=== PATIENT | female | born 1975 | race Caucasian/White ===

== ENCOUNTER 2019-09-23 05:39 | Outpatient (CLI) | payer BC ==
[~2019-09-23] VITALS: Ht 165.1 cm; Wt 59.1 kg
[2019-09-23] MEDS ORDERED: ALPR0.5T PO (10:37)
[2019-09-23] MEDS ORDERED: SIMV10TA26 PO (10:37)
[2019-09-23] MEDS ORDERED: ZOLP10TA PO (10:37)
== END 2019-09-23 10:39 | disposition home or self-care (01) ==
LOC: PREOP 05:39
PROVIDERS: ATTEND Otolaryngology Otolaryngology/Facial Plastic Surgery
DX: Z01.818 Encounter for other preprocedural examination (principal)

== ENCOUNTER 2019-09-27 08:34 | Day surgery (SDC) | payer BC ==
[2019-09-27] VITALS (11 sets, daily range): BP systolic 97–127; BP diastolic 52–77
[~2019-09-27] VITALS: Ht 165.1 cm; Wt 59.1 kg
[~2019-09-27 08:34] MED LIST: ALPR0.5T PO; SIMV10TA26 PO; ZOLP10TA PO
[2019-09-27] MEDS: LACTATED RINGERS 1,000 ML IV PRN ×2 (09:00→12:16)
[2019-09-27 09:29] LABS: BASOPHILS % (AUTO) 0 % (0-10); EOSINOPHILS # (AUTO) 0.1 10^3/uL (0.0-0.3); EOSINOPHILS % (AUTO) 1 % (0-10); HEMATOCRIT 42 % (35-52); HEMOGLOBIN 14.1 G/DL (11.5-16.0); LYMPHOCYTES # (AUTO) 2.3 X 10^3 (1.0-4.0); LYMPHOCYTES % (AUTO) 21 % (12-44); MEAN CORPUSCULAR HEMOGLOBIN 33 PG (25-34); MEAN CORPUSCULAR HGB CONC 34 G/DL (32-36); MEAN CORPUSCULAR VOLUME 97 FL (80-99); MEAN PLATELET VOLUME 11.3 FL (7.4-10.4); MONOCYTES # (AUTO) 0.8 X 10^3 (0.0-1.0); MONOCYTES % (AUTO) 7 % (0-12); NEUTROPHILS # (AUTO) 7.4 X 10^3 (1.8-7.8); NEUTROPHILS % (AUTO) 70 % (42-75); PLATELET COUNT 206 10^3/uL (130-400); RED CELL DISTRIBUTION WIDTH 12.9 % (10.0-14.5); WHITE BLOOD COUNT 10.7 10^3/uL (4.3-11.0)
[2019-09-27] MEDS ORDERED: COCAINE HCL 4% 2 ML SYR ONE (09:34)
[2019-09-27] MEDS ORDERED: LIDOCAINE/EPI 1%-1:100,000 (XYLOCAINE) 20ML ONE (09:34)
[2019-09-27] MEDS ORDERED: PHENYLEPHRINE 0.5% NASAL SPR (NEO-SYNEPHRINE) REG ONE (09:34)
[2019-09-27] MEDS ORDERED: fentaNYL INJECTION 100 MCG/2 ML AMP ONE (09:36)
[2019-09-27] MEDS ORDERED: DEXAMETHASONE 10 MG/ML (DECADRON) 1 ML VIAL ONE (09:36)
[2019-09-27] MEDS ORDERED: LIDOCAINE PF 2% 5 ML (XYLOCAINE) VIAL ONE (09:36)
[2019-09-27] MEDS ORDERED: GLYCOPYRROLATE 0.2 MG/ML (ROBINUL) 2 ML VIAL ONE (09:36)
[2019-09-27] MEDS ORDERED: NEOSTIGMINE 3 MG/3 ML VIAL ONE (09:36)
[2019-09-27] MEDS ORDERED: ROCURONIUM 10 MG/ML 5 ML SYRINGE IV ONE (09:36)
[2019-09-27] MEDS ORDERED: proPOfol 200 MG/20 ML (DIPRIVAN) VIAL IV ONE (09:36)
[2019-09-27] MEDS ORDERED: SEVOFLURANE (ULTANE) 15 ML INHAL SOLN ONE (09:36)
[2019-09-27] MEDS ORDERED: ONDANSETRON 4 MG/2 ML (SDV) Z0FRAN ONE (09:36)
[2019-09-27] MEDS ORDERED: MIDAZOLAM 2 MG/2 ML (VERSED) VIAL ONE (09:36)
[2019-09-27 09:45] LABS: BUN/CREATININE RATIO 16; CALCIUM 8.8 MG/DL (8.5-10.1); CARBON DIOXIDE 22 MMOL/L (21-32); CHLORIDE 107 MMOL/L (98-107); GFR ESTIMATED > 60; GLUCOSE 95 MG/DL (70-105); POTASSIUM 4.1 MMOL/L (3.6-5.0); SODIUM 139 MMOL/L (135-145)
--- NOTE | 2019-09-27 10:39 | Progress Note-Pre Operative ---
Pre-Operative Progress Note H&P Reviewed The H&P was reviewed, patient examined and no changes noted. Date Seen by Provider: Sep 27, 2019 Time Seen by Provider: : Date H&P Reviewed: Sep 27, 2019 Time H&P Reviewed: : Pre-Operative Diagnosis: Deviated Nasal Septum, Bilat Hyper of Inf Turbs BRENNA HUMPHRIES MD Sep 27, 2019 10:39
[2019-09-27] MEDS ORDERED: D5 1/2 NS W/KCL 20 MEQ/L 1,000 ML IV SCH (11:39)
--- NOTE | 2019-09-27 11:39 | Progress Note-Post Operative ---
Post-Operative Progess Note Surgeon (s)/Patient Access Coordinator (s) Surgeon BRENNA HUMPHRIES MD Patient Access Coordinator n/a Pre-Operative Diagnosis Deviated Nasal Septum, Bilat Hyper of Inf Turbs Post-Operative Diagnosis same Post-Op Procedure Note Date of Procedure: Sep 27, 2019 Name of Procedure Performed: Nasal Septoplasty, Bialt Partial REd of Inf Turbs Description & Findings Description and Findings: n/a Anesthesia Type get Estimated Blood Loss minimal Packing none. Specimen(s) collected/removed nasal septum BRENNA HUMPHRIES MD Sep 27, 2019 11:39
[2019-09-27] MEDS ORDERED: ACETAMINOPHEN 325 MG TABLET PO PRN (11:45)
[2019-09-27] MEDS ORDERED: oxyCODONE/APAP 5/325MG (PERCOCET 5) TABLET PO PRN (11:45)
[2019-09-27] MEDS ORDERED: PROMETHAZINE INJ 25 MG/ML (PHENERGAN) AMP IVP PRN (11:45)
[2019-09-27] MEDS ORDERED: RT-ALBUTEROL SULF 2.5 MG/3 ML PRE-MIX VIAL ONE (11:54)
[2019-09-27] MEDS ORDERED: RT-ALBUTEROL SULF 2.5 MG/3 ML PRE-MIX VIAL INH ONE (12:00)
[2019-09-27] MEDS ORDERED: morphine INJ 10 MG/ML 1ML (SYR OR VIAL) IVP ONE (12:00)
[2019-09-27] MEDS ORDERED: morphine INJ 10 MG/ML 1ML (SYR OR VIAL) ONE (12:00)
[2019-09-27] MEDS ORDERED: ONDANSETRON 4 MG/2 ML (SDV) Z0FRAN IVP PRN (12:00)
[2019-09-27] MEDS ORDERED: HYDROmorphone 2 MG/ML VIAL (DILAUDID) IV ONE (12:00)
--- NOTE | 2019-09-27 13:23 | Anesthesia-General Post-Op ---
General Patient Condition Mental Status/LOC: Same as Preop Cardiovascular: Satisfactory Nausea/Vomiting: Absent Respiratory: Satisfactory Pain: Controlled Complications: Absent Post Op Complications Complications None Follow Up Care/Instructions Patient Instructions None needed. Anesthesia/Patient Condition Patient Condition Patient is doing well, stable vital signs, no apparent adverse anesthesia problems. She is C/O a sore throat, which I explained to her was not uncommon after the procedure secondary to intubation. She understood. We will be available if needed. CLEMENT GRIFFIN DO Sep 27, 2019 13:23
[2019-09-27] MEDS ORDERED: oxyCODONE/APAP 5/325MG (PERCOCET 5) TABLET ONE ×2 (13:30→13:33)
[2019-09-27] MEDS ORDERED: OXYC1TAB87 PO (13:31)
[2019-09-27] MEDS ORDERED: AMOX500T2 PO (13:31)
--- OUTSIDE RECORDS SUMMARY | 2019-09-29 01:06 | XMS REPORT ---
Author Author Bethany Mann Organization [facility] Address [address] [place], [place] [id number] Care Team Providers Care Rail Switchman Name Role Phone Nolberto Mann PCP Allergies and Adverse Reactions Name Reaction Notes codeine sulfate Plan of Treatment Not available. Medications Active Name Start Date Estimated Completion Date SIG Co mments Xanax 0.5 mg oral tablet take 1 tablet by oral route daily as needed Ambien 5 mg oral tablet take 1 t ablet (5 mg) by oral route once daily at bedtime simvastatin 20 mg oral tablet ta ke 1 tablet (20 mg) by oral route once daily in the evening Claritin-D 24 Hour 10-240 mg oral tablet extended release 24 hr 10/13/2018 take 1 tablet by oral route once daily Name Start Date Expiration Date SIG Comments amoxicillin-pot clavulanate 875-125 mg oral tablet 09/08/2018 09/18/2018 take 1 tablet by oral route every 12 hours for 10 days amoxicillin 875 mg oral tablet 10/13/2018 10/23/2018 t cornelio 1 tablet (875 mg) by oral route every 12 hours for 10 days Discontinued Name Start Date Discontinued Date SIG Comments Medrol (Karl) 4 mg oral tablets,dose pack 09/08/2018 10/13/2018 take as directed Problem List Not available. Vital Signs Date Time BP-Sys(mm[Hg] BP-Sindy(mm[Hg]) HR(bpm) RR(rpm) Temp WT HT HC BMI BSA BMI Percentile O2 Sat(%) 10/13/2018 11:06:00 AM 118 mmHg 86 mmHg 85 bpm 18 rpm 97.3 F 147.125 lbs 65 in 24.4826 kg/m 1.7494 m 97 % 09/08/2018 10:45:00 AM 120 mmHg 64 mmHg 70 bpm 18 rpm 99.1 F 145 lbs 65 in 24.13 kg/m2 1.74 m2 98 % Social History Name Description Comments Tobacco Current every day smoker History of Procedures Not available. Results Summary Not available. History Of Immunizations Not available. History of Past Illness Name Date of Onset Comments Migraine Hyperlipemia Sinusitis, Acute Sep 08 2018 10:51AM Sinusitis, Acute Oct 13 2018 11:08AM Payers Insurance Name Company Name Plan Name Plan Number Policy Number [employer] Group Number Start Date [facility] [id number] N/ A History of Encounters Visit Date Visit Type Provider 10/13/2018 Office visit Nolberto Mann NP 09/08/2018 Office visit Nolberto Mann REACTOR OPERATOR
--- OUTSIDE RECORDS SUMMARY | 2019-09-29 01:06 | XMS REPORT ---
Author Author [facility] Medic al StaffJAIME Organization [facility] Address [address] [place], [place] [address] Phone [phone] Care Team Providers Care Svp Group Director Name Role Phone CUCA MCMILLAN MD PP [phone] Summary purpose TRANSITION OF CARE AUTO GENERATION Chief Complaint and Reason for Visit Admit Diagnosis 1 PHYSICAL THERAPY NEC Problem list No authorized problems tracked for continuity of care are available for this vis it. Encounters No authorized problems tracked for encounter diagnoses are available for this vi sit. Medications No medications recorded for this patient visit Allergies, adverse reactions, alerts Allergen Category Ingredient Status Reaction Severity Onset Codeine Drug Allergy Codeine Confirmed or Verified Immunizations No immunizations recorded for this patient visit Relevant diagnostic tests and/or laboratory data No authorized results are available for this patient visit History of procedures Procedure Code Code Type Description Date Performed Performing Physician 58040 CPT-4 PT EVALUATION 11-03-2014 GRACIE REYES 83489 CPT-4 ULTRASOUND THERAPY 11-03-2014 GRACIE NORRIS 16831 CPT-4 THERAPEUTIC EXERCISES 11-07-2014 GRACIE REYES 26285 CPT-4 ULTRASOUND THERAPY 11-07-2014 GRACIE NORRIS Functional status No functional or cognitive status observations are available for this visit. Vital signs No authorized vital signs are available for this visit. Social history No Social History or smoking status observations were recorded for this visit. ( Unknown if ever smoked.) Treatment Plan No treatment plan text is available for this visit. Hospital discharge instructions No discharge instruction text is available for this visit.
--- OUTSIDE RECORDS SUMMARY | 2019-09-29 01:06 | XMS REPORT ---
Author Author [facility] Medic al Staff, JAIME Gonzales Organization [facility] Address [address] [place], [place] [address] Phone [phone] Care Team Providers Care Housekeeping Room Attendant Name Role Phone CUCA MCMILLAN MD PP [phone] Summary purpose TRANSITION OF CARE AUTO GENERATION [...] for this patient visit History of procedures No procedures recorded for this patient visit. Functional status No functional or cognitive status [...]
--- OUTSIDE RECORDS SUMMARY | 2019-09-29 01:06 | XMS REPORT ---
Author Author Bethany Mann Organization [facility] Address [address] [place], [place] [address] Care Team Providers Care Laundry Housekeeping Aide Name Role Phone Nolberto Mann PCP Allergies [...] oral route once daily in the evening amoxicillin-pot clavulanate 875-125 mg oral tablet 09/08/2018 09/18/2018 take 1 tablet by oral route every 12 hours for 10 days Medrol (Karl) 4 mg oral tablets,dose pack 09/08/2018 take as directed Problem List Not available. Vital Signs Date Time BP-Sys(mm[Hg] BP-Sindy(mm[Hg]) HR(bpm) RR(rpm) Temp WT HT HC BMI BSA BMI Percentile O2 Sat(%) 09/08/2018 10:45:00 AM 120 mmHg 64 mmHg 70 bpm 18 rpm 99.1 F 145 lbs 65 in 24.129 kg/m 1.7368 m 98 % Social History Name Description Comments Tobacco Current every day smoker History of Procedures Not available. Results Summary Not available. History Of Immunizations Not available. History of Past Illness Name Date of Onset Comments Migraine Hyperlipemia Sinusitis, Acute Sep 08 2018 10:51AM Payers Insurance Name Company Name Plan Name Plan Number Policy Number [employer] Group Number Start Date [facility] [id number] N/ A History of Encounters Visit Date Visit Type Provider 09/08/2018 Office visit Nolberto Mann NP
--- OUTSIDE RECORDS SUMMARY | 2019-09-29 01:06 | XMS REPORT ---
Author Author Bethany Mann Organization [facility] Address [address] [place], [place] [id number] Care Team Providers Care Superintendent Greens Name Role Phone Nolberto Mann PCP Allergies [...] 1 tablet by oral route once daily amoxicillin 875 mg oral tablet 10/13/2018 10/23/2018 t cornelio 1 tablet (875 mg) by oral route every 12 hours for 10 days Name Start Date Expiration Date SIG Comments [...] Number [employer] [id number]/ A History of Encounters Visit Date Visit Type Provider 10/13/2018 Office visit Nolberto Mann NP 09/08/2018 Office visit Nolberto Mann NP
--- OUTSIDE RECORDS SUMMARY | 2019-09-29 01:06 | XMS REPORT ---
Author Author [facility] Medic al StaffJAIME Organization [facility] Address [address] [place], [place] [address] Phone [phone] Care Team Providers Care Rib Builder Name Role Phone CUCA MCMILLAN MD PP [phone] Summary purpose TRANSITION OF CARE AUTO GENERATION [...] Code Type Description Date Performed Performing Physician 13035 CPT-4 PT EVALUATION 11-03-2014 GRACIE REYES 03995 CPT-4 ULTRASOUND THERAPY 11-03-2014 GRACIE NORRIS 62540 CPT-4 THERAPEUTIC EXERCISES 11-07-2014 GRACIE REYES 19077 CPT-4 ULTRASOUND THERAPY 11-07-2014 GRACIE NORRIS Functional [...]
--- OUTSIDE RECORDS SUMMARY | 2019-09-29 01:06 | XMS REPORT ---
Author Author [facility] Medic al StaffJAIME Organization [facility] Address [address] [place], [place] [address] Phone [phone] Care Team Providers Care Paint Roller Covermaker Name Role Phone CUCA MCMILLAN MD PP [phone] Summary purpose TRANSITION OF CARE AUTO GENERATION Chief Complaint and Reason for Visit Admit Diagnosis 1 JOINT PAIN-L/LEG Problem list No authorized problems tracked for continuity of care are available for this vis it. Encounters No authorized problems tracked for encounter diagnoses are available for this vi sit. Medications No home medications recorded for this patient visit Allergies, adverse reactions, alerts Allergen Category Ingredient Status Reaction Severity Onset Codeine Drug Allergy Codeine Confirmed or Verified Immunizations No immunizations recorded for this patient visit Relevant diagnostic tests and/or laboratory data RESULTS Radiology Results [id number] MRI LOW EXT JT W/O CON PACs Image DATE OF EXAM: 2014 MRI 0093-MRI LOWER EXT JOINT W/O CONTRAST- RIGHT: RADIOLOGY REPORT DATE OF SERVICE:10/20/14 HISTORY:Right knee pain, catching, p opping, locking and swelling. MAGNETIC RESONANCE IMAGING OF THE RIGHT KNEE 1105 HOURS Imaging of the knee was performed in the sagittal, oblique sagittal, axial and coronal planes. No contrast wa s administered. The anterior and posterior cruciate liga ments are normal and intact. There is no ligament tear. The menisci a re intact. The medial and lateral compartments show no significant chondral thinning or irregularity. There is no bony fracture or edema. The patellofemoral facets and patellar retinacula are ismael l. There is no significant joint effusion. The posteromedial and posterol ateral corner insertions are normal. The quadriceps and patellar tend ons are normal. IMPRESSION:Normal magnetic resonance imaging of the right knee. Thor Zelaya MD MWD/pb10/20/2014 11:52:00 / 12/2014 12:32:48 cc:Dr. Gracie Watson This document has been electronically Signed by: On: DATE OF EXAM: 2014 MRI 0093-MRI LOWER EXT JOINT W/O CONTRAST- RIGHT: RADIOLOGY REPORT DATE OF SERVICE:10/20/14 HISTORY:Right knee pain, catching, p opping, locking and swelling. MAGNETIC RESONANCE IMAGING OF THE RIGHT KNEE 1105 HOURS Imaging of the knee was performed in the sagittal, oblique sagittal, axial and coronal planes. No contrast wa s administered. The anterior and posterior cruciate liga ments are normal and intact. There is no ligament tear. The menisci a re intact. The medial and lateral compartments show no significant chondral thinning or irregularity. There is no bony fracture or edema. The patellofemoral facets and patellar retinacula are ismael l. There is no significant joint effusion. The posteromedial and posterol ateral corner insertions are normal. The quadriceps and patellar tend ons are normal. IMPRESSION:Normal magnetic resonance imaging of the right knee. Thor Zelaya MD MWD/pb/12/2014 11:52:00 / 12/2014 12:32:48 cc:Dr. Gracie Watson This document has been electronically Signed by: THOR ZELAYA On: [id number] Result Amended on 2014-10-20 at 14:25:25 . Previous status was RI. History of procedures Procedure Code Code Type Description Date Performed Performing Physician 77292 CPT-4 MRI JNT OF LWR EXTRE W/O DYE 10-20-2014 GRACIE WATSON Functional status No functional or cognitive status [...]
--- OUTSIDE RECORDS SUMMARY | 2019-09-29 01:07 | XMS REPORT | Clinical Summary ---
Author Author Admin, Bethany Gonzales Organization [facility] Address Unknown Phone Unavailable Allergies, Adverse Reactions, Alerts Allergy Name Reaction Description Start Date Severity Status Pr ovider CODEINE in other meds is okay to take, not by its self Mild Active Thomas Marks DO Conditions or Problems Problem Name Problem Code Onset Date Status Entry Date Provider Comment Standard Description Annotate FH BREAST CANCER V16.3 Resolved Checo Conklin MD Family history of malignant neoplasm of breast FH DIABETES V18.0 Resolved Checo Conklin MD Family history of diabetes mellitus CONCUSSION 850.9 Resolved Checo Conklin MD Concussion, unspecified UTI 599.0 Resolved Checo Conklin MD Urinary tract infection, site not specified UTI 599.0 Resolved Checo Conklin MD Urinary tract infection, site not specified Anxiety 300.00 Active Checo Conklin MD Anxiety state, unspecified A D D 314.00 Inactive Checo Conklin MD Attention deficit disorder of childhood without mention of hyperactivity Attention deficit disorder 314.00 Active 1 Checo Conklin MD Attention deficit disorder of childhood without mention of hyperactivity ABDOMINAL PAIN RIGHT LOWER QUADRANT 789.03 Resolved Checo Conklin MD Abdominal pain, right lower quadrant HEADACHE, TENSION 307.81 Resolved Checo Conklin MD Tension headache PHARYNGITIS 462 Resolved Checo Conklin MD Acute pharyngitis TOBACCO ABUSE 305.1 Inactive Paul Hamlin MD Tobacco use disorder Tobacco user 305.1 Active Checo Conklin MD Tobacco use disorder Health screening V70.0 Active Checo Joshua Routine general medical examination at a health care facility OTITIS MEDIA-RIGHT 382.9 Resolved Checo richey MD Unspecified otitis media Onychomycosis, toenails 110.1 Resolved Joe Conklin MD Dermatophytosis of nail Hypoglycemia, unspecified 251.2 Resolved Checo Conklin MD Hypoglycemia, unspecified Insomnia 780.52 Resolved Checo Conklin MD Insomnia, unspecified Hyperlipidemia 272.4 Active Checo Conklin MD Other and unspecified hyperlipidemia Migraine with aura 346.00 Active Checo Conklin MD Migraine with aura, without mention of intractable migraine, without mention of status migrainosus Breast mass, right 611.72 Resolved Checo richey MD Lump or mass in breast Breast mass, right 611.72 Resolved Checo richey MD Lump or mass in breast Mastalgia 611.71 Resolved Checo Conklin MD Mastodynia Sinusitis 461.9 Resolved Checo Conklin MD Acute sinusitis, unspecified Insect bite 919.4 Resolved Checo Conklin MD Insect bite, nonvenomous, of other, multiple, and unspecified sites, without mention of infection Carbuncle/furuncle NOS 680.9 Resolved Lenora Conklin MD Carbuncle and furuncle of unspecified site BRONCHITIS, ACUTE 466.0 Resolved Checo Conklin MD Acute bronchitis Abdominal pain 789.00 Resolved Checo Conklin MD Abdominal pain, unspecified site Knee pain, right 719.46 Resolved Checo Conklin MD Pain in joint involving lower leg Vertigo 780.4 Resolved Checo Conklin MD Dizziness and giddiness Constipation 564.00 Active Checo Conklin MD Constipation, unspecified Abscess, skin 682.9 Resolved Checo Conklin MD Cellulitis and abscess of unspecified sites Insomnia, chronic 307.42 Active Checo Conklin MD Persistent disorder of initiating or maintaining sleep Bacterial vaginosis 616.10 Resolved Checo martinez MD Vaginitis and vulvovaginitis, unspecified Pharyngitis 462 Resolved Checo Conklin MD Acute pharyngitis Cough 786.2 Resolved Checo Conklin MD Cough Pedal edema 782.3 Resolved Checo Conklin MD Edema 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 Checo Conklin MD Neoplasm of uncertain behavior of skin Abdominal pain, generalized 789.07 Resolved Checo Conklin MD Abdominal pain, generalized Urinary frequency 788.41 Resolved Checo Conklin MD Urinary frequency Sinusitis, acute 461.9 Resolved Checo Conklin MD Acute sinusitis, unspecified Repeated falls 781.99 Resolved Checo Conklin MD Other symptoms involving nervous and musculoskeletal systems Abdominal pain, generalized 789.07 Resolved Checo Conklin MD Abdominal pain, generalized Nausea 787.02 Resolved Checo Conklin MD Nausea alone Helicobacter pylori gastritis 535.40 Active 07/28 Checo Conklin MD Other specified gastritis, without menti on of hemorrhage Arm pain, right 729.5 Active Dangelo Joshua Pain in limb Body Mass Index 25.0-25.9 Adult Resolved 2017 Paul Hamlin MD Body Mass Index 25.0-25.9, adult Generalized edema 782.3 Active Checo Conklin MD Edema Overweight 278.00 Active Paul Hamlin MD Obesity, unspecified Body Mass Index 27.0-27.9 Adult Resolved 2018 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 Body Mass Index 27.0-27.9, adult Body Mass Index 26.0-26.9 Adult Refinement 2017 Thomas Marks DO Body Mass Index 26.0-26.9, adult BMI 25-25.9 Active 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 APRN-C Body Mass Index 26.0-26.9, adult Wellness examination, routine medical V70.0 Active 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 APRN-C Routine general medical examination at a health care facility Hypertension 401.9 Active 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 APRN-C Unspecified essential hypertension Screening for cardiovascular condition V81.2 Active 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 APRN-C Screening for other and unspecified card iovascular conditions Medication refill V68.1 Active 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 APRN- C Issue of repeat prescriptions Insomnia, chronic 780.52 Active 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 APRN- C Insomnia, unspecified Depression / anxiety 300.4 Active Radha WILCOX RN-C Dysthymic disorder BREAST CANCER ICD-V16.3 Inactive Checo Joshua FH DIABETES ICD-V18.0 Inactive Checo Conklin MD 201 08/27/26 CONCUSSION ICD-850.9 Inactive Checo Joshua UTI ICD-599.0 Inactive Checo Conklin MD 2013 ABDOMINAL PAIN RIGHT LOWER QUADRANT ICD-789.03 Inactive Checo Conklin MD HEADACHE, TENSION ICD-307.81 Inactive Checo Conklin MD PHARYNGITIS ICD-462 Inactive Checo Conklin MD OTITIS MEDIA-RIGHT ICD-382.9 Inactive Checo Conklin MD Onychomycosis, toenails ICD-110.1 Inactive Aracelis Conklin MD Hypoglycemia, unspecified ICD-251.2 Inactive Checo Conklin MD Insomnia ICD-780.52 Inactive Checo Joshua Breast mass, right ICD-611.72 Inactive Checo Conklin MD Mastalgia ICD-611.71 Inactive Checo Joshua Sinusitis ICD-461.9 Inactive Checo Conklin MD Insect bite ICD-919.4 Inactive Checo Conklin MD Carbuncle/furuncle NOS ICD-680.9 Inactive Hilaria Conklin MD BRONCHITIS, ACUTE ICD-466.0 Inactive Checo gallagher MD Abdominal pain ICD-789.00 Inactive Checo ngo MD Knee pain, right ICD-719.46 Inactive Checo gallagher MD Vertigo ICD-780.4 Inactive Checo Conklin MD 2014 Abscess, skin ICD-682.9 Inactive Checo richey MD Bacterial vaginosis ICD-616.10 Inactive Lenora Conklin MD Pharyngitis ICD-462 Inactive Checo Conklin MD Cough ICD-786.2 Inactive Checo Conklin MD 2016 Pedal edema ICD-782.3 Inactive Checo Conklin MD 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 Checo Conklin MD Abdominal pain, generalized ICD-789.07 Inactive Checo Conklin MD Urinary frequency ICD-788.41 Inactive Checo Conklin MD Sinusitis, acute ICD-461.9 Inactive Checo Ortiz MD Repeated falls ICD-781.99 Inactive Checo ngo MD Abdominal pain, generalized ICD-789.07 Inactive Checo Conklin MD Nausea ICD-787.02 Inactive Checo Conklin MD 201 02/15/12 Body Mass Index 25.0-25.9 Adult Robbin Hamlin MD Body Mass Index 27.0-27.9 Adult Jeremias Marks MA Medication List Medication Instructions Start Date Stop Date Generic Name NDC Status Provider Patient Instruction CELEXA 20 MG ORAL TABLET take half a tab for 5 days t hen whole tab daily, may take in evening, for depression/anxiety CITALOPR AM HYDROBROMIDE 40428351070 Active 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 APRN-C Active PROZAC 10 MG ORAL CAPSULE 1 PO Daily FLUOXETINE HCL 54158107519 No Longer Active 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 APRN-C Active VYVANSE 30 MG ORAL CAPSULE 1 PO daily LISDEXAMF ETAMINE DIMESYLATE 19917399934 Active 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 Active XANAX 0.5 MG ORAL TABLET 1 tablet PO BID; PRN A LPRAZOLAM 37204187266 Active Radhasantos Whitaker 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 Active SIMVASTATIN 20 MG ORAL TABLET 1 tablet PO daily SI MVASTATIN 06167342548 Active Radhasantos Whitaker 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 Active IBUPROFEN 800 MG ORAL TABLET 1 tablet PO q8hr PRN IBUPROFEN 29509042565 Active Radhasantos Whitaker 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 Active AMBIEN 5 MG ORAL TABLET 1 tablet PO once daily; PRN ZOLPIDEM TARTRATE 98594877754 Active 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 Active ALBUTEROL SULFATE HFA 108 (90 BASE) MCG/ACT INHALATION AEROSOL SOLUTION 2 puffs, INH, q4hr PRN ALBUTEROL SULFATE 97250549905 Active Radha Sherman A PRN-C Active AMBIEN 5 MG ORAL TABLET 1 po qHS PRN Insomnia ZOLPIDEM TARTRATE 37068038039 No Longer Active 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 APRN-C Active XANAX 0.5 MG ORAL TABLET 1 po BID PRN anxiety A LPRAZOLAM 02664373691 No Longer Active 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 Active PAROXETINE HCL 40 MG ORAL TABLET 1 po qd PAR OXETINE HCL 91015404198 No Longer Active 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 Active FOCALIN XR 10 MG ORAL CAPSULE EXTENDED RELEASE 24 HOUR 1 po q a. m. DEXMETHYLPHENIDATE HCL 92273785804 No Longer Active Radha Low 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 Active SIMVASTATIN 20 MG ORAL TABLET 1 po qd SIMVAS TATIN 84022523736 No Longer Active 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 Active FUROSEMIDE 20 MG ORAL TABLET 1 daily for swelling 2018 FUROSEMIDE 84309450339 No Longer Active 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 Active KLOR-CON 10 10 MEQ ORAL TABLET EXTENDED RELEASE 1 daily with furosemide POTASSIUM CHLORIDE 19193148027 No Longer Active 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 Active HYDROCHLOROTHIAZIDE 12.5 MG ORAL CAPSULE 1 po qd PRN Edema 01/10 HYDROCHLOROTHIAZIDE 03759006598 No Longer Active Paul Hamlin MD Active IBUPROFEN 800 MG ORAL TABLET 1 tab every 8 hours as needed for p ain IBUPROFEN 08144424769 No Longer Active Paul Hamlin MD Active MIRALAX ORAL POWDER 8.5 to 17g po qd PRN Constipation POLYETHYLENE GLYCOL 3350 06029851482 No Longer Active Checo Conklin MD Active PROTONIX 40 MG ORAL TABLET DELAYED RELEASE 1 pill by m [facility] daily, for acid reflux PANTOPRAZOLE SODIUM 81705787267 No Longer Activ e Corry Méndez LPN Active FLAGYL 500 MG ORAL TABLET 1 tablet by mouth bid 08/29 METRONIDAZOLE 55604957128 No Longer Active Corry Méndez LPN Active CLARITHROMYCIN 500 MG ORAL TABLET 1 tab po BID x 14 days CLARITHROMYCIN 22804434785 No Longer Active Corry Méndez LPN Active AMOXICILLIN 500 MG ORAL CAPSULE 2 po BID x 14 days for H. Pyl[facility] AMOXICILLIN 11072243446 No Longer Active Corry Méndez LPN Active FLUTICASONE PROPIONATE 50 MCG/ACT NASAL SUSPENSION 2 s prays/nostril qd PRN Congestion/Allergies FLUTICASONE PROPIONATE 4875574073 9 No Longer Active Checo Conklin MD Active AMOXICILLIN 500 MG ORAL CAPSULE 2 po BID x 10 days 201 01/15/27 AMOXICILLIN 26710814529 No Longer Active Checo Conklin MD Activ e CLARITIN 10 MG ORAL TABLET 1 tablet by mouth daily as needed for allergies LORATADINE 46715919505 No Longer Active Checo Ortiz MD Active BACTRIM DS 800-160 MG ORAL TABLET 1 tab by mouth twice daily 201 12/19/26 TRIMETHOPRIM-SULFAMETHOXAZOLE 79413013026 No Longer Active Ragini Carrillo MD Active DIFLUCAN 150 MG ORAL TABLET 1 tablet by mouth qod 2015 FLUCONAZOLE 28411796657 No Longer Active Efren Medel DRY CLEANER HELPER Act mike AZITHROMYCIN 250 MG ORAL TABLET 2 po qd x 1 day, then 1 po q d x 4 days AZITHROMYCIN 59877726709 No Longer Active Efren flores DRY CLEANER HELPER Active FLAGYL 500 MG ORAL TABLET 1 tablet by mouth bid 04/13 METRONIDAZOLE 79910273260 No Longer Active Checo Conklin MD Acti ve MAGNESIUM CITRATE 1.745 GM/30ML ORAL SOLUTION 150ml po BID P RN Constipation MAGNESIUM CITRATE 71874109333 No Longer Active Checo Conklin MD Active BACTROBAN 2 % EXTERNAL CREAM Apply to affected area BID for up to 10 days MUPIROCIN CALCIUM 70181274739 No Longer Active Checo Conklin MD Active HYDROCODONE-ACETAMINOPHEN 5-325 MG ORAL TABLET 1 tab b y mouth every 6 hours as needed HYDROCODONE-ACETAMINOPHEN 91441748975 No Longer Active Checo Conklin MD Active IBUPROFEN 800 MG ORAL TABLET 1 tab every 8 hours with food 03/20 IBUPROFEN 37088699600 No Longer Active Checo Conklin MD Active DIFLUCAN 150 MG ORAL TABLET 1 tablet by mouth if neede d, hold until symptoms start FLUCONAZOLE 50706376700 No Longer Active Checo Conklin MD Active BACTRIM DS 800-160 MG ORAL TABLET 1 tab by mouth twice daily 201 11/23/03 TRIMETHOPRIM-SULFAMETHOXAZOLE 75276136044 No Longer Active Bonnie Méndez LPN Active HYDROCODONE-ACETAMINOPHEN 5-325 MG ORAL TABLET 0.5 to 1 tab by mouth every 6 hours as needed HYDROCODONE-ACETAMINOPHEN 23143309876 No Longer Active Checo Conklin MD Active ONDANSETRON 8 MG ORAL TABLET DISINTEGRATING place one tablet on tongue and allow to dissolve every 6 hours as needed for vomitting ONDANSETRON 64886175284 No Longer Active Checo Conklin MD Activ e COMPRO 25 MG RECTAL SUPPOSITORY insert or apply one garza ppository rectally as directed every 12 hours as needed for nausea PROCHLORPERAZINE 10008072831 No Longer Active Checo Conklin MD A ctive SUMATRIPTAN SUCCINATE 100 MG ORAL TABLET Take one PRN for migran e SUMATRIPTAN SUCCINATE 63269220087 No Longer Active Checo Conklin MD Active TRAVEL SICKNESS 25 MG ORAL TABLET CHEWABLE chew and sw allow one tablet every 6 hours as needed MECLIZINE HCL 42008363275 No Longer A ctive Checo Conklin MD Active BUPROPION HCL ER (SR) 100 MG ORAL TABLET EXTENDED RELE ASE 12 HOUR take one tablet by mouth one time daily for one week then take 1 two times daily BUPROPION HCL 97715859637 No Longer Active Checo gallagher MD Active TERBINAFINE HCL 250 MG ORAL TABLET take one table PO one time da moises TERBINAFINE HCL 62381016507 No Longer Active Checo Conklin MD Active METOCLOPRAMIDE HCL 10 MG ORAL TABLET take one PO tid PRN nausea METOCLOPRAMIDE HCL 08400871129 No Longer Active Checo Conklin MD Active DICLOFENAC SODIUM 75 MG ORAL TABLET DELAYED RELEASE 1 tablet by mouth twice daily PRN Knee pain DICLOFENAC SODIUM 67977710545 No Longer Active Checo Conklin MD Active LAMISIL 250 MG ORAL TABLET 1 po qd TERBINAFI NE HCL 63697195697 No Longer Active Checo Conklin MD Active REGLAN 10 MG ORAL TABLET 1 po TID PRN Nausea 3 METOCLOPRAMIDE HCL 07480664885 No Longer Active Checo Conklin MD Active CELEXA 20 MG ORAL TABLET 1 tablet by mouth daily 09/26 CITALOPRAM HYDROBROMIDE 12124341813 No Longer Active Checo Conklin MD Active AZITHROMYCIN 250 MG ORAL TABLET 2 po qd x 1 day, then 1 po q d x 4 days AZITHROMYCIN 93474483896 No Longer Active Checo Ortiz MD Active HYDROCODONE-ACETAMINOPHEN 5-325 MG ORAL TABLET 1 po q 6hr PRN Pa in HYDROCODONE-ACETAMINOPHEN 70756025576 No Longer Active Lenora Conklin MD Active PHENAZOPYRIDINE HCL 200 MG ORAL TABLET take 1 tab po TID for bladder pain PHENAZOPYRIDINE HCL 03654013028 No Longer Active Joe Conklin MD Active CIPRO 500 MG ORAL TABLET 1 tablet by mouth twice daily CIPROFLOXACIN HCL 17666932705 No Longer Active Dangelo Rangel MD Active HYDROCODONE-ACETAMINOPHEN 5-325 MG ORAL TABLET 1/2 to 1 po q 4 hours prn cough HYDROCODONE-ACETAMINOPHEN 24731504255 No Longer Activ e Dangelo Rangel MD Active BACTRIM DS 800-160 MG ORAL TABLET 1 po BID x 7 days 29/04/10 SULFAMETHOXAZOLE-TRIMETHOPRIM 43359292378 No Longer Active Checo Conklin MD Active PREDNISONE 20 MG ORAL TABLET 2 tabs daily for 3 days, 1 tab daily for 3 days, 1/2 tab daily for 2 days PREDNISONE 02551597279 No Longer Active Checo Conklin MD Active TRIAMCINOLONE ACETONIDE 0.1 % EXTERNAL OINTMENT Apply to affected areas TID for up to 2 weeks TRIAMCINOLONE ACETONIDE 46228185403 No Longer Active Checo Conklin MD Active CEFDINIR 300 MG ORAL CAPSULE by mouth twice a day 2013 CEFDINIR 27563981155 No Longer Active Dangelo Rangel MD Acti ve BUPROPION HCL ER (SMOKING DET) 150 MG ORAL TABLET EXTE NDED RELEASE 12 HOUR 1 a day for 1 week then 1 twice a day BUPROPION HCL (SMOKING DETER) 74264588616 No Longer Active Checo Conklin MD Active CHANTIX STARTING MONTH KARTHIK 0.5 MG X 11 & 1 MG X 42 ORA L TABLET 0.5mg daily for 3 days, then 0.5mg BID for 4 days, then 1mg BID VARENICLINE TARTRATE 99076134194 No Longer Active Checo Conkiln MD Activ e CONCERTA 18 MG ORAL TABLET EXTENDED RELEASE 1 po q a.m. METHYLPHENIDATE HCL 13040055887 No Longer Active Checo Conklin MD Active TRAZODONE HCL 100 MG ORAL TABLET 0.5 to 1 po qHS PRN Insomnia 20 30/07/08 TRAZODONE HCL 97490240403 No Longer Active Checo Conklin MD Active FIORICET 325-50-40 MG TAB 1 tablet by mouth four times daily as needed [id number] 58343395696 No Longer Active Checo Conklin MD Active PHENERGAN CREAM* 25mg applied to wrist q6hr PRN Nausea PHENERGAN CREAM* No Longer Active Checo Conklin MD A ctive FLONASE 50 MCG/ACT NASAL SUSPENSION 1 spray each nostril am and hs FLUTICASONE PROPIONATE 95286963878 No Longer Active Checo Conklin MD Active ANTIPYRINE-BENZOCAINE 5.4-1.4 % OTIC SOLUTION 1-2 drops in affec yohannes ear BENZOCAINE-ANTIPYRINE 32589282307 No Longer Active Checo Conklin MD Active CEFDINIR 300 MG ORAL CAPSULE 1 po bid CEFDINIR 24155722240 No Longer Active Checo Conklin MD Active PREDNISONE 20 MG ORAL TABLET 2 tabs daily for 3 days, 1 tab daily for 3 days, 1/2 tab daily for 2 days PREDNISONE 43793133810 No Longer Active Checo Conklin MD Active AZITHROMYCIN 250 MG ORAL TABLET 2 po qd x 1 day, then 1 po q d x 4 days AZITHROMYCIN 48815418919 No Longer Active Checo Ortiz MD Active PREDNISONE 20 MG ORAL TABLET 2 tabs daily for 3 days, 1 tab daily for 3 days, 1/2 tab daily for 2 days PREDNISONE 58486869891 No Longer Active Checo Conklin MD Active ZITHROMAX Z-KARTHIK 250 MG ORAL TABLET 2 today, then 1 daily for 4 d ays AZITHROMYCIN 41410725761 No Longer Active Paul Hamlin MD Active FOCALIN XR 10 MG ORAL CAPSULE EXTENDED RELEASE 24 HOUR 1 po q a. m. DEXMETHYLPHENIDATE HCL 20854953047 No Longer Active aPul Hamlin MD Active PERCOCET 10-325 MG ORAL TABLET 1 tablet every 6 hours as needed for pain OXYCODONE-ACETAMINOPHEN 93213370770 No Longer Active Paul Hamlin MD Active LORTAB 5-500 MG ORAL TABLET 1/2 to 1 tablet by mouth e very 4 hours as needed for pain HYDROCODONE-ACETAMINOPHEN 61719913321 No Longer Active Checo Conklin MD Active FOCALIN XR 15 MG ORAL CAPSULE EXTENDED RELEASE 24 HOUR 1 po q a. m. DEXMETHYLPHENIDATE HCL 78298928196 No Longer Active Checo Conklin MD Active ZOFRAN ODT 4 MG ORAL TABLET DISINTEGRATING 1 po q6hr PRN Nausea ONDANSETRON 29067597803 No Longer Active Checo Conklin MD Active PERCOCET 5-325 MG ORAL TABLET 1 tablet by mouth every 6 hour s as needed OXYCODONE-ACETAMINOPHEN 01777278978 No Longer Active Checo Conklin MD Active PYRIDIUM 200 MG ORAL TABLET take 1 tab po TID prn urinary pain. PHENAZOPYRIDINE HCL 78080367402 No Longer Active Checo Joshua Active FLUCONAZOLE 150 MG ORAL TABLET take 1 tab po qday once FLUCONAZOLE 38210029551 No Longer Active Dangelo Rangel MD Acti ve CIPRO 500 MG ORAL TABLET 1 tablet by mouth twice daily CIPROFLOXACIN HCL 94639611175 No Longer Active Dangelo Rangel MD Active PYRIDIUM 200 MG ORAL TABLET take 1 tab po TID prn urinary pain. PYRIDIUM 200 MG ORAL TABLET 6432058 PHENAZOPYRIDINE HCL Inactive PERCOCET 5-325 MG ORAL TABLET 1 tablet by mouth every 6 hour s as needed PERCOCET 5-325 MG ORAL TABLET 3332205 OXYCODONE-ACETAMINOPHEN Inactive ZOFRAN ODT 4 MG ORAL TABLET DISINTEGRATING 1 po q6hr PRN Nausea ZOFRAN ODT 4 MG ORAL TABLET DISINTEGRATING ONDAN SETRON Inactive FOCALIN XR 15 MG ORAL CAPSULE EXTENDED RELEASE 24 HOUR 1 po q a. m. FOCALIN XR 15 MG ORAL CAPSULE EXTENDED RELEASE 24 HOUR DEXMETHYLPHENIDATE HCL Inactive LORTAB 5-500 MG ORAL TABLET 1/2 to 1 tablet by mouth e very 4 hours as needed for pain LORTAB 5-500 MG ORAL TABLET HYDROCODONE-ACETAMINOPHEN Inactive PERCOCET 10-325 MG ORAL TABLET 1 tablet every 6 hours as needed for pain PERCOCET 10-325 MG ORAL TABLET 7693874 OXYCODONE-ACETAMI NOPHEN Inactive FOCALIN XR 10 MG ORAL CAPSULE EXTENDED RELEASE 24 HOUR 1 po q a. m. FOCALIN XR 10 MG ORAL CAPSULE EXTENDED RELEASE 24 HOUR DEXMETHYLPHENIDATE HCL Inactive CEFDINIR 300 MG ORAL CAPSULE 1 po bid CEFDINI R 300 MG ORAL CAPSULE 513338 CEFDINIR Inactive ANTIPYRINE-BENZOCAINE 5.4-1.4 % OTIC SOLUTION 1-2 drops in affec yohannes ear ANTIPYRINE-BENZOCAINE 5.4-1.4 % OTIC SOLUTION BENZOCAINE-ANTIPYRINE Inactive FLONASE 50 MCG/ACT NASAL SUSPENSION 1 spray each nostril am and hs FLONASE 50 MCG/ACT NASAL SUSPENSION FLUTICASONE PROPIONATE I nactive PHENERGAN CREAM* 25mg applied to wrist q6hr PRN Nausea PHENERGAN CREAM* Inactive FIORICET 325-50-40 MG TAB 1 tablet by mouth four times daily as needed FIORICET 325-50-40 MG TAB ACETAMINOPHEN-C AFF-BUTALBITAL Inactive TRAZODONE HCL 100 MG ORAL TABLET 0.5 to 1 po qHS PRN Insomnia 20 30/07/08 TRAZODONE HCL 100 MG ORAL TABLET 001127 TRAZODONE HCL Inactive CONCERTA 18 MG ORAL TABLET EXTENDED RELEASE 1 po q a.m. CONCERTA 18 MG ORAL TABLET EXTENDED RELEASE METHYLPHENIDATE HCL Inactive CHANTIX STARTING MONTH KARTHIK 0.5 MG X 11 & 1 MG X 42 ORA L TABLET 0.5mg daily for 3 days, then 0.5mg BID for 4 days, then 1mg BID CHANTIX STARTING MONTH KARTHIK 0.5 MG X 11 & 1 MG X 42 ORAL TABLET VAREN ICLINE TARTRATE Inactive HYDROCODONE-ACETAMINOPHEN 5-325 MG ORAL TABLET 1/2 to 1 po q 4 hours prn cough HYDROCODONE-ACETAMINOPHEN 5-325 MG ORAL TABLET 8 98741 HYDROCODONE-ACETAMINOPHEN Inactive PHENAZOPYRIDINE HCL 200 MG ORAL TABLET take 1 tab po TID for bladder pain PHENAZOPYRIDINE HCL 200 MG ORAL TABLET 4414530 PHENAZOPYRIDINE HCL Inactive HYDROCODONE-ACETAMINOPHEN 5-325 MG ORAL TABLET 1 po q 6hr PRN Pa in HYDROCODONE-ACETAMINOPHEN 5-325 MG ORAL TABLET 884145 HYDROCODONE-ACETAMINOPHEN Inactive CELEXA 20 MG ORAL TABLET 1 tablet by mouth daily 09/26 CELEXA 20 MG ORAL TABLET 359040 CITALOPRAM HYDROBROMIDE Inactive REGLAN 10 MG ORAL TABLET 1 po TID PRN Nausea 3 REGLAN 10 MG ORAL TABLET 204118 METOCLOPRAMIDE HCL Inactive LAMISIL 250 MG ORAL TABLET 1 po qd L AMISIL 250 MG ORAL TABLET 286509 TERBINAFINE HCL Inactive DICLOFENAC SODIUM 75 MG ORAL TABLET DELAYED RELEASE 1 tablet by mouth twice daily PRN Knee pain DICLOFENAC SODIUM 75 MG ORAL TABLET DELAYED RELEASE 906209 DICLOFENAC SODIUM Inactive METOCLOPRAMIDE HCL 10 MG ORAL TABLET take one PO tid PRN nausea METOCLOPRAMIDE HCL 10 MG ORAL TABLET 813202 METOCLOPRAM ZACH HCL Inactive TERBINAFINE HCL 250 MG ORAL TABLET take one table PO one time da moises TERBINAFINE HCL 250 MG ORAL TABLET 091188 TERBINAFINE H CL Inactive BUPROPION HCL ER (SR) 100 MG ORAL TABLET EXTENDED RELE ASE 12 HOUR take one tablet by mouth one time daily for one week then take 1 two times daily BUPROPION HCL ER (SR) 100 MG ORAL TABLET EXTENDED RELEASE 12 HOUR BUPROPION HCL Inactive TRAVEL SICKNESS 25 MG ORAL TABLET CHEWABLE chew and sw allow one tablet every 6 hours as needed TRAVEL SICKNESS 25 M G ORAL TABLET CHEWABLE 190387 MECLIZINE HCL Inactive SUMATRIPTAN SUCCINATE 100 MG ORAL TABLET Take one PRN for migran e SUMATRIPTAN SUCCINATE 100 MG ORAL TABLET 991010 SUMATRIPTAN SUCCINATE Inactive COMPRO 25 MG RECTAL SUPPOSITORY insert or apply one garza ppository rectally as directed every 12 hours as needed for nausea COMPRO 25 MG RECTAL SUPPOSITORY 174152 PROCHLORPERAZINE Inactive ONDANSETRON 8 MG ORAL TABLET DISINTEGRATING place one tablet on tongue and allow to dissolve every 6 hours as needed for vomitting ONDANSETRON 8 MG ORAL TABLET DISINTEGRATING 014674 ONDANSETRON Inactive HYDROCODONE-ACETAMINOPHEN 5-325 MG ORAL TABLET 0.5 to 1 tab by mouth every 6 hours as needed HYDROCODONE-ACETAMIN OPHEN 5-325 MG ORAL TABLET 171784 HYDROCODONE-ACETAMINOPHEN Inactive BACTRIM DS 800-160 MG ORAL TABLET 1 tab by mouth twice daily 201 11/23/03 BACTRIM DS 800-160 MG ORAL TABLET 223226 TRIMETHOPRIM-SULFAMETHOXAZOLE Inactive DIFLUCAN 150 MG ORAL TABLET 1 tablet by mouth if neede d, hold until symptoms start DIFLUCAN 150 MG ORAL TABLET 19760325 FLUCONAZ OLE Inactive IBUPROFEN 800 MG ORAL TABLET 1 tab every 8 hours with food 03/20 IBUPROFEN 800 MG ORAL TABLET IBUPROFEN [place] ctive HYDROCODONE-ACETAMINOPHEN 5-325 MG ORAL TABLET 1 tab b y mouth every 6 hours as needed HYDROCODONE-ACETAMINOPHEN 5-325 MG ORAL TABLET 570659 HYDROCODONE-ACETAMINOPHEN Inactive BACTROBAN 2 % EXTERNAL CREAM Apply to affected area BID for up to 10 days BACTROBAN 2 % EXTERNAL CREAM MUPIROCIN CA LCIUM Inactive MAGNESIUM CITRATE 1.745 GM/30ML ORAL SOLUTION 150ml po BID P RN Constipation MAGNESIUM CITRATE 1.745 GM/30ML ORAL SOLUTION 10 59176 MAGNESIUM CITRATE Inactive DIFLUCAN 150 MG ORAL TABLET 1 tablet by mouth qod 2015 DIFLUCAN 150 MG ORAL TABLET 106332 FLUCONAZOLE Inactive BACTRIM DS 800-160 MG ORAL TABLET 1 tab by mouth twice daily 201 12/19/26 BACTRIM DS 800-160 MG ORAL TABLET 984902 TRIMETHOPRIM-SULFAMETHOXAZOLE Inactive CLARITIN 10 MG ORAL TABLET 1 tablet by mouth daily as needed for allergies CLARITIN 10 MG ORAL TABLET 917692 LORATADINE I nactive FLUTICASONE PROPIONATE 50 MCG/ACT NASAL SUSPENSION 2 s prays/nostril qd PRN Congestion/Allergies FLUTICASONE PROPION ATE 50 MCG/ACT NASAL SUSPENSION 1668083 FLUTICASONE PROPIONATE Inactive MIRALAX ORAL POWDER 8.5 to 17g po qd PRN Constipation MIRALAX ORAL POWDER 224875 POLYETHYLENE GLYCOL 3350 Inactive IBUPROFEN 800 MG ORAL TABLET 1 tab every 8 hours as needed for p ain IBUPROFEN 800 MG ORAL TABLET 337976 IBUPROFEN [place] [facility] HYDROCHLOROTHIAZIDE 12.5 MG ORAL CAPSULE 1 po qd PRN Edema 01/10 HYDROCHLOROTHIAZIDE 12.5 MG ORAL CAPSULE 019770 HYDROCH LOROTHIAZIDE Inactive KLOR-CON 10 10 MEQ ORAL TABLET EXTENDED RELEASE 1 daily with furosemide KLOR-CON 10 10 MEQ ORAL TABLET EXTENDED RELEASE POTASSIUM CHLORIDE Inactive FUROSEMIDE 20 MG ORAL TABLET 1 daily for swelling 2018 FUROSEMIDE 20 MG ORAL TABLET 073490 FUROSEMIDE Inactive SIMVASTATIN 20 MG ORAL TABLET 1 po qd SIMVASTATIN 20 MG ORAL TABLET 808263 SIMVASTATIN Inactive FOCALIN XR 10 MG ORAL CAPSULE EXTENDED RELEASE 24 HOUR 1 po q a. m. FOCALIN XR 10 MG ORAL CAPSULE EXTENDED RELEASE 24 HOUR DEXMETHYLPHENIDATE HCL Inactive PAROXETINE HCL 40 MG ORAL TABLET 1 po qd PAROXETINE HCL 40 MG ORAL TABLET 6869923 PAROXETINE HCL Inactive XANAX 0.5 MG ORAL TABLET 1 po BID PRN anxiety XANAX 0.5 MG ORAL TABLET 124481 ALPRAZOLAM Inactive AMBIEN 5 MG ORAL TABLET 1 po qHS PRN Insomnia AMBIEN 5 MG ORAL TABLET 786534 ZOLPIDEM TARTRATE Inactive PROZAC 10 MG ORAL CAPSULE 1 PO Daily AR OZAC 10 MG ORAL CAPSULE 597428 FLUOXETINE HCL Inactive CIPRO 500 MG ORAL TABLET 1 tablet by mouth twice daily CIPRO 500 MG ORAL TABLET 071354 CIPROFLOXACIN HCL Inactive FLUCONAZOLE 150 MG ORAL TABLET take 1 tab po qday once FLUCONAZOLE 150 MG ORAL TABLET 146544 FLUCONAZOLE Inactive ZITHROMAX Z-KARTHIK 250 MG ORAL TABLET 2 today, then 1 daily for 4 d ays ZITHROMAX Z-KARTHIK 250 MG ORAL TABLET 272005 AZITHROMYCIN Inactive PREDNISONE 20 MG ORAL TABLET 2 tabs daily for 3 days, 1 tab daily for 3 days, 1/2 tab daily for 2 days PREDNISONE 20 MG ORAL T ABLET 860315 PREDNISONE Inactive AZITHROMYCIN 250 MG ORAL TABLET 2 po qd x 1 day, then 1 po q d x 4 days AZITHROMYCIN 250 MG ORAL TABLET 831172 AZITHROMY SPARKLE Inactive PREDNISONE 20 MG ORAL TABLET 2 tabs daily for 3 days, 1 tab daily for 3 days, 1/2 tab daily for 2 days PREDNISONE 20 MG ORAL TABLET 235980 PREDNISONE Inactive CEFDINIR 300 MG ORAL CAPSULE by mouth twice a day 2013 CEFDINIR 300 MG ORAL CAPSULE 737352 CEFDINIR Inactive TRIAMCINOLONE ACETONIDE 0.1 % EXTERNAL OINTMENT Apply to affected areas TID for up to 2 weeks TRIAMCINOLONE ACETON ZACH 0.1 % EXTERNAL OINTMENT 6648115 TRIAMCINOLONE ACETONIDE Inactive PREDNISONE 20 MG ORAL TABLET 2 tabs daily for 3 days, 1 tab daily for 3 days, 1/2 tab daily for 2 days PREDNISONE 20 MG ORAL T ABLET 177042 PREDNISONE Inactive BACTRIM DS 800-160 MG ORAL TABLET 1 po BID x 7 days 29/04/10 BACTRIM DS 800-160 MG ORAL TABLET 133587 SULFAMETHOXAZOLE-TRIMETHOP RIM Inactive CIPRO 500 MG ORAL TABLET 1 tablet by mouth twice daily CIPRO 500 MG ORAL TABLET 601834 CIPROFLOXACIN HCL Inactive AZITHROMYCIN 250 MG ORAL TABLET 2 po qd x 1 day, then 1 po q d x 4 days AZITHROMYCIN 250 MG ORAL TABLET 639201 AZITHROMY SPARKLE Inactive FLAGYL 500 MG ORAL TABLET 1 tablet by mouth bid 04/13 FLAGYL 500 MG ORAL TABLET 138830 METRONIDAZOLE Inactive AZITHROMYCIN 250 MG ORAL TABLET 2 po qd x 1 day, then 1 po q d x 4 days AZITHROMYCIN 250 MG ORAL TABLET 066273 AZITHROMY SPARKLE Inactive AMOXICILLIN 500 MG ORAL CAPSULE 2 po BID x 10 days 01/15/27 AMOXICILLIN 500 MG ORAL CAPSULE 319901 AMOXICILLIN Inactive AMOXICILLIN 500 MG ORAL CAPSULE 2 po BID x 14 days for [facility] AMOXICILLIN 500 MG ORAL CAPSULE 647145 AMOXICILLIN Inactive CLARITHROMYCIN 500 MG ORAL TABLET 1 tab po BID x 14 days CLARITHROMYCIN 500 MG ORAL TABLET 489104 CLARITHROMYCIN Inacti ve FLAGYL 500 MG ORAL TABLET 1 tablet by mouth bid 08/29 FLAGYL 500 MG ORAL TABLET 276848 METRONIDAZOLE Inactive PROTONIX 40 MG ORAL TABLET DELAYED RELEASE 1 pill by m outh daily, for acid reflux PROTONIX 40 MG ORAL TABLET DELAYED RELEAS E 896107 PANTOPRAZOLE SODIUM Inactive Immunizations Vaccine Administration Date Value Standard Michael cription TB-PPD (tuberculin purified protein derivative), intra dermal administration Tubersol Vital Signs Date Name Value Unit Range Description blood pressure, diastolic, repeated by physician 67 BP mathew blood pressure, diastolic 67 mm[Hg] BP mathew blood pressure, systolic, repeated by physician 103 BP sys blood pressure, systolic 103 mm[Hg] BP sys height E&M 63.5 [in_us] Bdy height pulse rate E&M 87 /min Heart rate temperature E&M 98.3 [degF] Body temp erature weight E&M 144 [lb_av] Weight Measure d Diagnostic Results Date Name Value Unit Range Description Lab Report: CBC, Comp. Metabolic Panel, Lipid Panel - Chemistry sodium, serum 142 mmol/L 371-271 6374/07/22 carbon dioxide, venous blood 26.3 mmol/L 21.0-32 .0 potassium, serum 5.1 mmol/L 3.5-5.2 chloride, serum 106 mmol/L 98-107 blood glucose 103 mg/dL 65-95 urea nitrogen, blood 8 mg/dL 7-18 creatinine, serum 0.67 mg/dL 0.60-1.30 Estimated Glomerular Filtration Rate (calc) 102 (?) mL/min/1.73m2 = OR > 60 mL/min alanine aminotransferase (SGPT), serum 24 U/L 12-78 aspartate aminotransferase (SGOT), serum 17 U/L 15-37 calcium, serum 9.4 mg/dL 8.5-10.1 bilirubin, serum, total 0.80 mg/dL 0.00-1.00 cholesterol, serum 172 mg/dL [phone]/07/22 triglyceride, serum, fasting 222 mg/dL 30-200 HDL cholesterol, serum 28 mg/dL 32-60 LDL cholesterol, serum 100 mg/dL 0-130 Lab Report: CBC, Comp. Metabolic Panel, Lipid Panel - Hematology leukocyte count, blood 9.1 10^3/MM^3 10*3/mm3 4.6-10.2 erythrocyte (RBC) count 4.72 10^6/MM^3 10*6/mm3 3.80-5.8 0 hemoglobin, blood 15.0 g/dL 12.0-16.0 hematocrit, blood 46.0 % 37.0-47.0 mean corpuscular volume, RBC 97 fL 80-97 mean corpuscular hemoglobin, RBC 31.7 pg 27. 0-31.2 mean corpuscular hemoglobin concentration, RBC 32.5 G/DL % 31.8-35.4 red blood cell distribution width 11.7 % 11 .6-14.8 platelet count 210 10^3/MM^3 10*3/mm3 142-424 Lab Report: CBC, Comp. Metabolic Panel, Lipid Panel - Lab Alkaline phosphatase 88 50-136 Lab Report: MICROALB/CREAT W/RATIO - Lab microalbumin, urine 30 mg/L 0-19 Lab Report: MICROALB/CREAT W/RATIO - Uri nalysis microalbumin/total urine volume <30 mg/g Normal mg/g mg/L 0-29 Encounters Code Encounter Date Provider Facility CPT-89092 Level 3 Est. Patient 06:02:19 CDT Radha Dic k 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 [facility] CPT-93515 Level 3 Est. Patient 09:11:53 CDT Radha Dic k 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 [facility] CPT-34185 Level 3 Est. Patient 16:46:51 CDT Thomas reynolds DO [facility] CPT-71845 [id number] Vst-Est Level III 14:40:49 CDT Paul Hamlin MD [facility] CPT-17576 Level 4 Est. Patient 11:08:43 CDT Checo Conklin MD [facility] CPT-57247 [id number] Vst-Est Level III 09:37:41 CDT Dangelo Rangel MD [facility] CPT-57259 Level 4 Est. Patient 08:57:51 [employer] Checo Conklin MD [facility] CPT-69083 Level 3 Est. Patient 11:24:55 [employer] Efren almendarez [facility] CPT-34814 Level 3 Est. Patient 13:05:44 CDT Paul Hamlin MD [facility] CPT-23967 Level 3 Est. Patient 11:29:55 CDT Checo Conklin MD [facility] CPT-31495 Level 4 Est. Patient 11:08:12 [employer] Checo Conklin MD [facility] CPT-59471 Level 4 Est. Patient 16:06:48 [employer] Checo Conklin MD [facility] CPT-29629 Level 3 Est. Patient 09:11:49 CDT Efren almendarez [facility] CPT-86583 Level 2 Est. Patient 19:53:27 CDT Tanner hill MD [facility] CPT-35735 Level 3 Est. Patient 09:15:34 CDT Efren almendarez [facility] CPT-61436 Level 3 Est. Patient 11:28:51 [employer] Efren almendarez [facility] CPT-56193 Level 4 Est. Patient 13:55:46 [employer] Checo Conklin MD [facility] CPT-82214 Level 4 Est. Patient 17:10:53 CDT Checo Conklin MD [facility] CPT-82739 Level 3 Est. Patient 15:56:22 CDT Checo Conklin MD [facility] CPT-29685 Level 3 Est. Patient 15:29:07 CDT Checo Conklin MD [facility] CPT-27288 Level 3 Est. Patient 14:38:41 CDT Checo Conklin MD [facility] CPT-26730 Level 3 Est. Patient 15:22:03 [employer] Thomas reynolds DO [facility] CPT-31740 Level 3 Est. Patient 13:34:17 [employer] Checo Conklin MD [facility] CPT-36622 Level 3 Est. Patient 12:29:32 CDT Dangelo arroyo MD [facility] CPT-60152 Level 3 Est. Patient 16:53:02 CDT Checo Conklin MD [facility] CPT-56892 Level 3 Est. Patient 16:37:13 CDT Checo Conklin MD [facility] CPT-46576 Level 3 Est. Patient 16:16:59 CDT Paul Hamlin MD [facility] CPT-93720 Level 3 Est. Patient 14:20:13 CDT Dangelo arroyo MD [facility] CPT-59809 Level 4 Est. Patient 11:29:33 CDT Checo Conklin MD [facility] CPT-32642 Level 3 Est. Patient 17:08:31 CDT Checo Conklin MD [facility] CPT-75129 Level 3 Est. Patient 16:50:42 [employer] Checo Conklin MD [facility] CPT-31060 Level 4 Est. Patient 09:26:08 [employer] Checo Conklin MD [facility] CPT-55802 Level 3 Est. Patient 11:37:10 CDT Checo Conklin MD [facility] CPT-68551 Level 4 Est. Patient 14:07:38 CDT Checo Conklin MD [facility] CPT-86166 Level 3 Est. Patient 09:54:41 CDT Checo Conklin MD [facility] CPT-95783 Level 3 Est. Patient 11:10:54 CDT Paul Hamlin MD [facility] CPT-71377 Level 3 Est. Patient 14:16:56 [employer] Checo Conklin MD [facility] CPT-38447 Level 3 Est. Patient 11:04:11 [employer] Checo Conklin MD [facility] CPT-69314 Level 3 Est. Patient 17:09:26 CDT Dangelo arroyo MD [facility] CPT-63501 Level 3 Est. Patient 16:54:37 CDT Checo Conklin MD [facility] Procedures Code Procedure Name Date Entry Date Standard Desc ription CPT-63189 Abx/Therapy Injection 09:52:15 CDT CPT-53775 Abx/Therapy Injection 18:17:48 CDT CPT-J2550 Phenergan 25 mg (Promethazine) 16:48:23 CDT CPT-J1885 Toradol 60 mg 16:48:23 CDT CPT-07050 Wrist, right, comp 3V - XRAY USE ONLY 09:24:31 CDT CPT-52088 Abd compl w upright - XRAY USE ONLY 1 1:36:54 [employer] CPT-47122 UA w micro - LAB USE ONLY 17:06:46 CDT 2015 CPT-79273 [facility] Qual - LAB USE ONLY 17:06:46 CDT 05/06 CPT-01701 CMP - LAB USE ONLY 17:06:46 CDT CPT-07715 CBC with Diff - LAB USE ONLY 17:06:45 CDT 2 CPT-38036 Venipuncture Draw Fee 17:06:45 CDT CPT-LR Lesion Removal 19:53:27 CDT CPT-OV Office Visit 11:31:28 CDT CPT-84865 Tubersol 09:39:29 CDT CPT-J2550 Phenergan 25 mg (Promethazine) 13:59:02 [employer] CPT-J1885 Toradol 60 mg (Ketorolac) 13:59:02 [employer] 2012
--- OUTSIDE RECORDS SUMMARY | 2019-09-29 01:07 | XMS REPORT | Clinical Summary ---
Author Author Admin, Bethany Gonzales Organization [facility] Address Unknown Phone Unavailable Allergies, Adverse Reactions, [...] Index 27.0-27.9 Adult Resolved 2018 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 DIELECTRIC PRESS OPERATOR-C Body Mass Index 27.0-27.9, adult Body Mass Index 26.0-26.9 Adult Refinement 2017 Thomas Marks DO Body Mass Index 26.0-26.9, adult BMI 25-25.9 Active 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 DIELECTRIC PRESS OPERATOR-C Body Mass Index 26.0-26.9, adult Wellness examination, routine medical V70.0 Active 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 DIELECTRIC PRESS OPERATOR-C Routine general medical examination at a health [...] richey MD Bacterial vaginosis ICD-616.10 Inactive Lenora Conkiln MD Pharyngitis ICD-462 Inactive Checo Conklin MD [...] 201 02/15/12 Body Mass Index 25.0-25.9 Adult Inac miriam Hamlin MD Body Mass Index 27.0-27.9 Adult Jeremias Marks MA Medication List Medication Instructions Start Date Stop Date Generic Name NDC Status Provider Patient Instruction ALPRAZOLAM 0.5 MG TABS TAKE ONE TABLET BY MOUTH TWO TIMES A DAY IF NEEDED ALPRAZOLAM [id number] Active 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 DIELECTRIC PRESS OPERATOR-C Active ZOLPIDEM TARTRATE 5 MG TABS TAKE ONE TABLET BY MOUTH ONE TI ME DAILY IF NEEDED ZOLPIDEM TARTRATE 08469247425 Active Radhasantos Whitaker DIELECTRIC PRESS OPERATOR-C Active CELEXA 20 MG ORAL TABLET take half a tab for 5 days t hen whole tab daily, may take in evening, for depression/anxiety CITALOPR AM HYDROBROMIDE 35303060632 Active 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 APRN-C Active PROZAC 10 MG ORAL CAPSULE 1 PO Daily FLUOXETINE HCL 00044945110 No Longer Active 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 APRN-C Active VYVANSE 30 MG ORAL CAPSULE 1 PO daily LISDEXAMF ETAMINE DIMESYLATE 68657311257 Active 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 APRN-C Active SIMVASTATIN 20 MG ORAL TABLET 1 tablet PO daily SI MVASTATIN 86102873629 Active 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 APRN-C Active IBUPROFEN 800 MG ORAL TABLET 1 tablet PO q8hr PRN IBUPROFEN 82639987570 Active 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 APRN-C Active ALBUTEROL SULFATE HFA 108 (90 BASE) MCG/ACT INHALATION AEROSOL SOLUTION 2 puffs, INH, q4hr PRN ALBUTEROL SULFATE 23259955043 Active 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 A PRN-C Active AMBIEN 5 MG ORAL TABLET 1 po qHS PRN Insomnia ZOLPIDEM TARTRATE 91196618109 No Longer Active 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 APRN-C Active XANAX 0.5 MG ORAL TABLET 1 po BID PRN anxiety A LPRAZOLAM 07524129733 No Longer Active 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 APRN-C Active PAROXETINE HCL 40 MG ORAL TABLET 1 po qd PAR OXETINE HCL 75763010898 No Longer Active 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 APRN-C Active FOCALIN XR 10 MG ORAL CAPSULE EXTENDED RELEASE 24 HOUR 1 po q a. m. DEXMETHYLPHENIDATE HCL 48137714519 No Longer Active Radha Low DIELECTRIC PRESS OPERATOR-C Active SIMVASTATIN 20 MG ORAL TABLET 1 po qd SIMVAS TATIN 60430433847 No Longer Active 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 APRN-C Active FUROSEMIDE 20 MG ORAL TABLET 1 daily for swelling 2018 FUROSEMIDE 82481269440 No Longer Active 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 APRN-C Active KLOR-CON 10 10 MEQ ORAL TABLET EXTENDED RELEASE 1 daily with furosemide POTASSIUM CHLORIDE 47366653692 No Longer Active 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 APRN-C Active HYDROCHLOROTHIAZIDE 12.5 MG ORAL CAPSULE 1 po qd PRN Edema 01/10 HYDROCHLOROTHIAZIDE 54802966613 No Longer Active Paul Hamlin MD Active IBUPROFEN 800 MG ORAL TABLET 1 tab every 8 hours as needed for p ain IBUPROFEN 83261795307 No Longer Active Paul Hamlin MD Active MIRALAX ORAL POWDER 8.5 to 17g po qd PRN Constipation POLYETHYLENE GLYCOL 3350 19173664358 No Longer Active Checo Conklin MD Active PROTONIX 40 MG ORAL TABLET DELAYED RELEASE 1 pill by m out daily, for acid reflux PANTOPRAZOLE SODIUM 43857636649 No Longer Activ e Corry Méndez LPN Active FLAGYL 500 MG ORAL TABLET 1 tablet by mouth bid 08/29 METRONIDAZOLE 72321539695 No Longer Active Corry Méndez LPN Active CLARITHROMYCIN 500 MG ORAL TABLET 1 tab po BID x 14 days CLARITHROMYCIN 77322585930 No Longer Active Corry Méndez LPN Active AMOXICILLIN 500 MG ORAL CAPSULE 2 po BID x 14 days for H. Pylori AMOXICILLIN 51049730270 No Longer Active Corry Méndez LPN Active FLUTICASONE PROPIONATE 50 MCG/ACT NASAL SUSPENSION 2 s prays/nostril qd PRN Congestion/Allergies FLUTICASONE PROPIONATE 8515428212 9 No Longer Active Checo Conklin MD Active AMOXICILLIN 500 MG ORAL CAPSULE 2 po BID x 10 days 201 01/15/27 AMOXICILLIN 82589411899 No Longer Active Checo Conklin MD Activ e CLARITIN 10 MG ORAL TABLET 1 tablet by mouth daily as needed for allergies LORATADINE 31423640140 No Longer Active Checo Ortiz MD Active BACTRIM DS 800-160 MG ORAL TABLET 1 tab by mouth twice daily 201 12/19/26 TRIMETHOPRIM-SULFAMETHOXAZOLE 77889785785 No Longer Active Ragini Carrillo MD Active DIFLUCAN 150 MG ORAL TABLET 1 tablet by mouth qod 2015 FLUCONAZOLE 63031508354 No Longer Active Efren Medel DIELECTRIC PRESS OPERATOR Act mike AZITHROMYCIN 250 MG ORAL TABLET 2 po qd x 1 day, then 1 po q d x 4 days AZITHROMYCIN 25851766646 No Longer Active Efren flores DIELECTRIC PRESS OPERATOR Active FLAGYL 500 MG ORAL TABLET 1 tablet by mouth bid 04/13 METRONIDAZOLE 06585308806 No Longer Active Checo Conklin MD Acti ve MAGNESIUM CITRATE 1.745 GM/30ML ORAL SOLUTION 150ml po BID P RN Constipation MAGNESIUM CITRATE 00633655649 No Longer Active Checo Conklin MD Active BACTROBAN 2 % EXTERNAL CREAM Apply to affected area BID for up to 10 days MUPIROCIN CALCIUM 56267720368 No Longer Active Checo Conklin MD Active HYDROCODONE-ACETAMINOPHEN 5-325 MG ORAL TABLET 1 tab b y mouth every 6 hours as needed HYDROCODONE-ACETAMINOPHEN 85635803673 No Longer Active Checo Conklin MD Active IBUPROFEN 800 MG ORAL TABLET 1 tab every 8 hours with food 03/20 IBUPROFEN 01336766601 No Longer Active Checo Conklin MD Active DIFLUCAN 150 MG ORAL TABLET 1 tablet by mouth if neede d, hold until symptoms start FLUCONAZOLE 97345936819 No Longer Active Checo Conklin MD Active BACTRIM DS 800-160 MG ORAL TABLET 1 tab by mouth twice daily 201 11/23/03 TRIMETHOPRIM-SULFAMETHOXAZOLE 59644017834 No Longer Active K bernice Méndez LPN Active HYDROCODONE-ACETAMINOPHEN 5-325 MG ORAL TABLET 0.5 to 1 tab by mouth every 6 hours as needed HYDROCODONE-ACETAMINOPHEN 32985170433 No Longer Active Checo Conklin MD Active ONDANSETRON 8 MG ORAL TABLET DISINTEGRATING place one tablet on tongue and allow to dissolve every 6 hours as needed for vomitting ONDANSETRON 33546390915 No Longer Active Cehco Conklin MD Activ e COMPRO 25 MG RECTAL SUPPOSITORY insert or apply one garza ppository rectally as directed every 12 hours as needed for nausea PROCHLORPERAZINE 08253868436 No Longer Active Checo Conklin MD A ctive SUMATRIPTAN SUCCINATE 100 MG ORAL TABLET Take one PRN for migran e SUMATRIPTAN SUCCINATE 91650598646 No Longer Active Checo Conklin MD Active TRAVEL SICKNESS 25 MG ORAL TABLET CHEWABLE chew and sw allow one tablet every 6 hours as needed MECLIZINE HCL 32076597603 No Longer A ctive Checo Conklin MD Active BUPROPION HCL ER (SR) 100 MG ORAL TABLET EXTENDED RELE ASE 12 HOUR take one tablet by mouth one time daily for one week then take 1 two times daily BUPROPION HCL 13863542708 No Longer Active Checo gallagher MD Active TERBINAFINE HCL 250 MG ORAL TABLET take one table PO one time da moises TERBINAFINE HCL 53968785126 No Longer Active Checo Conklin MD Active METOCLOPRAMIDE HCL 10 MG ORAL TABLET take one PO tid PRN nausea METOCLOPRAMIDE HCL 62856502205 No Longer Active Checo Conklin MD Active DICLOFENAC SODIUM 75 MG ORAL TABLET DELAYED RELEASE 1 tablet by mouth twice daily PRN Knee pain DICLOFENAC SODIUM 07114068574 No Longer Active Checo Conklin MD Active LAMISIL 250 MG ORAL TABLET 1 po qd TERBINAFI NE HCL 77002869733 No Longer Active Checo Conklin MD Active REGLAN 10 MG ORAL TABLET 1 po TID PRN Nausea 3 METOCLOPRAMIDE HCL 02328104266 No Longer Active Checo Conklin MD Active CELEXA 20 MG ORAL TABLET 1 tablet by mouth daily 09/26 CITALOPRAM HYDROBROMIDE 29752204409 No Longer Active Checo Conklin MD Active AZITHROMYCIN 250 MG ORAL TABLET 2 po qd x 1 day, then 1 po q d x 4 days AZITHROMYCIN 10499041918 No Longer Active Checo Ortiz MD Active HYDROCODONE-ACETAMINOPHEN 5-325 MG ORAL TABLET 1 po q 6hr PRN Pa in HYDROCODONE-ACETAMINOPHEN 46013060029 No Longer Active Lenora Conklin MD Active PHENAZOPYRIDINE HCL 200 MG ORAL TABLET take 1 tab po TID for bladder pain PHENAZOPYRIDINE HCL 57816927634 No Longer Active Joe Conklin MD Active CIPRO 500 MG ORAL TABLET 1 tablet by mouth twice daily CIPROFLOXACIN HCL 11725531270 No Longer Active Dangelo Rangel MD Active HYDROCODONE-ACETAMINOPHEN 5-325 MG ORAL TABLET 1/2 to 1 po q 4 hours prn cough HYDROCODONE-ACETAMINOPHEN 96510676321 No Longer Activ e Dangelo Rangel MD Active BACTRIM DS 800-160 MG ORAL TABLET 1 po BID x 7 days 29/04/10 SULFAMETHOXAZOLE-TRIMETHOPRIM 98894997126 No Longer Active Checo Conklin MD Active PREDNISONE 20 MG ORAL TABLET 2 tabs daily for 3 days, 1 tab daily for 3 days, 1/2 tab daily for 2 days PREDNISONE 15594702757 No Longer Active Checo Conklin MD Active TRIAMCINOLONE ACETONIDE 0.1 % EXTERNAL OINTMENT Apply to affected areas TID for up to 2 weeks TRIAMCINOLONE ACETONIDE 28834601807 No Longer Active Checo Conklin MD Active CEFDINIR 300 MG ORAL CAPSULE by mouth twice a day 2013 CEFDINIR 13883664140 No Longer Active Dangelo Rangel MD Acti ve BUPROPION HCL ER (SMOKING DET) 150 MG ORAL TABLET EXTE NDED RELEASE 12 HOUR 1 a day for 1 week then 1 twice a day BUPROPION HCL (SMOKING DETER) 84534264420 No Longer Active Checo Conklin MD Active CHANTIX STARTING MONTH KARTHIK 0.5 MG X 11 & 1 MG X 42 ORA L TABLET 0.5mg daily for 3 days, then 0.5mg BID for 4 days, then 1mg BID VARENICLINE TARTRATE 13137388113 No Longer Active Checo Conklin MD Activ e CONCERTA 18 MG ORAL TABLET EXTENDED RELEASE 1 po q a.m. METHYLPHENIDATE HCL 21493466339 No Longer Active Checo Conklin MD Active TRAZODONE HCL 100 MG ORAL TABLET 0.5 to 1 po qHS PRN Insomnia 20 30/07/08 TRAZODONE HCL 22716126850 No Longer Active Checo Conklin MD Active FIORICET 325-50-40 MG TAB 1 tablet by mouth four times daily as needed ZHMAVXDYAZZRL-NWAZ-ONAKRJHACY 64409474176 No Longer Active Checo Conklin MD Active PHENERGAN CREAM* 25mg applied to wrist q6hr PRN Nausea PHENERGAN CREAM* No Longer Active Checo Conklin MD A ctive FLONASE 50 MCG/ACT NASAL SUSPENSION 1 spray each nostril am and hs FLUTICASONE PROPIONATE 17443393564 No Longer Active Checo Conklin MD Active ANTIPYRINE-BENZOCAINE 5.4-1.4 % OTIC SOLUTION 1-2 drops in affec yohannes ear BENZOCAINE-ANTIPYRINE 18011056667 No Longer Active Checo Conklin MD Active CEFDINIR 300 MG ORAL CAPSULE 1 po bid CEFDINIR 13702525565 No Longer Active Checo Conklin MD Active PREDNISONE 20 MG ORAL TABLET 2 tabs daily for 3 days, 1 tab daily for 3 days, 1/2 tab daily for 2 days PREDNISONE 00638827793 No Longer Active Checo Conlkin MD Active AZITHROMYCIN 250 MG ORAL TABLET 2 po qd x 1 day, then 1 po q d x 4 days AZITHROMYCIN 91236452357 No Longer Active Checo Ortiz MD Active PREDNISONE 20 MG ORAL TABLET 2 tabs daily for 3 days, 1 tab daily for 3 days, 1/2 tab daily for 2 days PREDNISONE 67112880510 No Longer Active Checo Conklin MD Active ZITHROMAX Z-KARTHIK 250 MG ORAL TABLET 2 today, then 1 daily for 4 d ays AZITHROMYCIN 42018273526 No Longer Active Paul Hamlin MD Active FOCALIN XR 10 MG ORAL CAPSULE EXTENDED RELEASE 24 HOUR 1 po q a. m. DEXMETHYLPHENIDATE HCL 62315817680 No Longer Active Paul Hamlin MD Active PERCOCET 10-325 MG ORAL TABLET 1 tablet every 6 hours as needed for pain OXYCODONE-ACETAMINOPHEN 96412775311 No Longer Active Paul Hamlin MD Active LORTAB 5-500 MG ORAL TABLET 1/2 to 1 tablet by mouth e very 4 hours as needed for pain HYDROCODONE-ACETAMINOPHEN 64696828974 No Longer Active Checo Conklin MD Active FOCALIN XR 15 MG ORAL CAPSULE EXTENDED RELEASE 24 HOUR 1 po q a. m. DEXMETHYLPHENIDATE HCL 60296170175 No Longer Active Checo Conklin MD Active ZOFRAN ODT 4 MG ORAL TABLET DISINTEGRATING 1 po q6hr PRN Nausea ONDANSETRON 02474857173 No Longer Active Checo Conklin MD Active PERCOCET 5-325 MG ORAL TABLET 1 tablet by mouth every 6 hour s as needed OXYCODONE-ACETAMINOPHEN 35070038513 No Longer Active Checo Conklin MD Active PYRIDIUM 200 MG ORAL TABLET take 1 tab po TID prn urinary pain. PHENAZOPYRIDINE HCL 23857914278 No Longer Active Checo Joshua Active FLUCONAZOLE 150 MG ORAL TABLET take 1 tab po qday once FLUCONAZOLE 43072553355 No Longer Active Dangelo Rangel MD Acti ve CIPRO 500 MG ORAL TABLET 1 tablet by mouth twice daily CIPROFLOXACIN HCL 51872256748 No Longer Active Dangelo Rangel MD Active PYRIDIUM 200 MG ORAL TABLET take 1 tab po TID prn urinary pain. PYRIDIUM 200 MG ORAL TABLET 6453635 PHENAZOPYRIDINE HCL Inactive PERCOCET 5-325 MG ORAL TABLET 1 tablet by mouth every 6 hour s as needed PERCOCET 5-325 MG ORAL TABLET 1000710 OXYCODONE-ACETAMINOPHEN Inactive ZOFRAN ODT 4 MG ORAL [...] for pain PERCOCET 10-325 MG ORAL TABLET 3692682 OXYCODONE-ACETAMI NOPHEN Inactive FOCALIN XR 10 MG ORAL CAPSULE EXTENDED RELEASE 24 HOUR 1 po q a. m. FOCALIN XR 10 MG ORAL CAPSULE EXTENDED RELEASE 24 HOUR DEXMETHYLPHENIDATE HCL Inactive CEFDINIR 300 MG ORAL CAPSULE 1 po bid CEFDINI R 300 MG ORAL CAPSULE 242180 CEFDINIR Inactive ANTIPYRINE-BENZOCAINE 5.4-1.4 % OTIC SOLUTION [...] 30/07/08 TRAZODONE HCL 100 MG ORAL TABLET 752799 TRAZODONE HCL Inactive CONCERTA 18 MG ORAL [...] cough HYDROCODONE-ACETAMINOPHEN 5-325 MG ORAL TABLET 8 60082 HYDROCODONE-ACETAMINOPHEN Inactive PHENAZOPYRIDINE HCL 200 MG ORAL TABLET take 1 tab po TID for bladder pain PHENAZOPYRIDINE HCL 200 MG ORAL TABLET 2258281 PHENAZOPYRIDINE HCL Inactive HYDROCODONE-ACETAMINOPHEN 5-325 MG ORAL TABLET 1 po q 6hr PRN Pa in HYDROCODONE-ACETAMINOPHEN 5-325 MG ORAL TABLET 376347 HYDROCODONE-ACETAMINOPHEN Inactive CELEXA 20 MG ORAL TABLET 1 tablet by mouth daily 09/26 CELEXA 20 MG ORAL TABLET 148949 CITALOPRAM HYDROBROMIDE Inactive REGLAN 10 MG ORAL TABLET 1 po TID PRN Nausea 3 REGLAN 10 MG ORAL TABLET 775454 METOCLOPRAMIDE HCL Inactive LAMISIL 250 MG ORAL TABLET 1 po qd L AMISIL 250 MG ORAL TABLET 239489 TERBINAFINE HCL Inactive DICLOFENAC SODIUM 75 MG ORAL TABLET DELAYED RELEASE 1 tablet by mouth twice daily PRN Knee pain DICLOFENAC SODIUM 75 MG ORAL TABLET DELAYED RELEASE 631726 DICLOFENAC SODIUM Inactive METOCLOPRAMIDE HCL 10 MG ORAL TABLET take one PO tid PRN nausea METOCLOPRAMIDE HCL 10 MG ORAL TABLET 431594 METOCLOPRAM ZACH HCL Inactive TERBINAFINE HCL 250 MG ORAL TABLET take one table PO one time da moises TERBINAFINE HCL 250 MG ORAL TABLET 807691 TERBINAFINE H CL Inactive BUPROPION HCL ER [...] SICKNESS 25 M G ORAL TABLET CHEWABLE 019399 MECLIZINE HCL Inactive SUMATRIPTAN SUCCINATE 100 MG ORAL TABLET Take one PRN for migran e SUMATRIPTAN SUCCINATE 100 MG ORAL TABLET 651395 SUMATRIPTAN SUCCINATE Inactive COMPRO 25 MG RECTAL SUPPOSITORY insert or apply one garza ppository rectally as directed every 12 hours as needed for nausea COMPRO 25 MG RECTAL SUPPOSITORY 997989 PROCHLORPERAZINE Inactive ONDANSETRON 8 MG ORAL TABLET DISINTEGRATING place one tablet on tongue and allow to dissolve every 6 hours as needed for vomitting ONDANSETRON 8 MG ORAL TABLET DISINTEGRATING 828636 ONDANSETRON Inactive HYDROCODONE-ACETAMINOPHEN 5-325 MG ORAL TABLET 0.5 to 1 tab by mouth every 6 hours as needed HYDROCODONE-ACETAMIN OPHEN 5-325 MG ORAL TABLET 135628 HYDROCODONE-ACETAMINOPHEN Inactive BACTRIM DS 800-160 MG ORAL TABLET 1 tab by mouth twice daily 201 11/23/03 BACTRIM DS 800-160 MG ORAL TABLET 610221 TRIMETHOPRIM-SULFAMETHOXAZOLE Inactive DIFLUCAN 150 MG ORAL TABLET 1 tablet by mouth if neede d, hold until symptoms start DIFLUCAN 150 MG ORAL TABLET 19760325 FLUCONAZ OLE Inactive IBUPROFEN 800 MG ORAL TABLET 1 tab every 8 hours with food 03/20 IBUPROFEN 800 MG ORAL TABLET IBUPROFEN [place] ctive HYDROCODONE-ACETAMINOPHEN 5-325 MG ORAL TABLET 1 tab b y mouth every 6 hours as needed HYDROCODONE-ACETAMINOPHEN 5-325 MG ORAL TABLET 663478 HYDROCODONE-ACETAMINOPHEN Inactive BACTROBAN 2 % EXTERNAL CREAM Apply to affected area BID for up to 10 days BACTROBAN 2 % EXTERNAL CREAM MUPIROCIN CA LCIUM Inactive MAGNESIUM CITRATE 1.745 GM/30ML ORAL SOLUTION 150ml po BID P RN Constipation MAGNESIUM CITRATE 1.745 GM/30ML ORAL SOLUTION 10 15317 MAGNESIUM CITRATE Inactive DIFLUCAN 150 MG ORAL TABLET 1 tablet by mouth qod 2015 DIFLUCAN 150 MG ORAL TABLET 765924 FLUCONAZOLE Inactive BACTRIM DS 800-160 MG ORAL TABLET 1 tab by mouth twice daily 201 12/19/26 BACTRIM DS 800-160 MG ORAL TABLET 262656 TRIMETHOPRIM-SULFAMETHOXAZOLE Inactive CLARITIN 10 MG ORAL TABLET 1 tablet by mouth daily as needed for allergies CLARITIN 10 MG ORAL TABLET 430347 LORATADINE I nactive FLUTICASONE PROPIONATE 50 MCG/ACT NASAL SUSPENSION 2 s prays/nostril qd PRN Congestion/Allergies FLUTICASONE PROPION ATE 50 MCG/ACT NASAL SUSPENSION 4136923 FLUTICASONE PROPIONATE Inactive MIRALAX ORAL POWDER 8.5 to 17g po qd PRN Constipation MIRALAX ORAL POWDER 518693 POLYETHYLENE GLYCOL 3350 Inactive IBUPROFEN 800 MG ORAL TABLET 1 tab every 8 hours as needed for p ain IBUPROFEN 800 MG ORAL TABLET 277080 IBUPROFEN [place] ctive HYDROCHLOROTHIAZIDE 12.5 MG ORAL CAPSULE 1 po qd PRN Edema 01/10 HYDROCHLOROTHIAZIDE 12.5 MG ORAL CAPSULE 266635 HYDROCH LOROTHIAZIDE Inactive KLOR-CON 10 10 MEQ ORAL TABLET EXTENDED RELEASE 1 daily with furosemide KLOR-CON 10 10 MEQ ORAL TABLET EXTENDED RELEASE POTASSIUM CHLORIDE Inactive FUROSEMIDE 20 MG ORAL TABLET 1 daily for swelling 2018 FUROSEMIDE 20 MG ORAL TABLET 966477 FUROSEMIDE Inactive SIMVASTATIN 20 MG ORAL TABLET 1 po qd SIMVASTATIN 20 MG ORAL TABLET 943611 SIMVASTATIN Inactive FOCALIN XR 10 MG ORAL CAPSULE EXTENDED RELEASE 24 HOUR 1 po q a. m. FOCALIN XR 10 MG ORAL CAPSULE EXTENDED RELEASE 24 HOUR DEXMETHYLPHENIDATE HCL Inactive PAROXETINE HCL 40 MG ORAL TABLET 1 po qd PAROXETINE HCL 40 MG ORAL TABLET 8982375 PAROXETINE HCL Inactive XANAX 0.5 MG ORAL TABLET 1 po BID PRN anxiety XANAX 0.5 MG ORAL TABLET 361919 ALPRAZOLAM Inactive AMBIEN 5 MG ORAL TABLET 1 po qHS PRN Insomnia AMBIEN 5 MG ORAL TABLET 392210 ZOLPIDEM TARTRATE Inactive PROZAC 10 MG ORAL CAPSULE 1 PO Daily HI OZAC 10 MG ORAL CAPSULE 867297 FLUOXETINE HCL Inactive CIPRO 500 MG ORAL TABLET 1 tablet by mouth twice daily CIPRO 500 MG ORAL TABLET 838877 CIPROFLOXACIN HCL Inactive FLUCONAZOLE 150 MG ORAL TABLET take 1 tab po qday once FLUCONAZOLE 150 MG ORAL TABLET 632114 FLUCONAZOLE Inactive ZITHROMAX Z-KARTHIK 250 MG ORAL TABLET 2 today, then 1 daily for 4 d ays ZITHROMAX Z-KARTHIK 250 MG ORAL TABLET 567566 AZITHROMYCIN Inactive PREDNISONE 20 MG ORAL TABLET 2 tabs daily for 3 days, 1 tab daily for 3 days, 1/2 tab daily for 2 days PREDNISONE 20 MG ORAL T ABLET 290315 PREDNISONE Inactive AZITHROMYCIN 250 MG ORAL TABLET 2 po qd x 1 day, then 1 po q d x 4 days AZITHROMYCIN 250 MG ORAL TABLET 078085 AZITHROMY SPARKLE Inactive PREDNISONE 20 MG ORAL TABLET 2 tabs daily for 3 days, 1 tab daily for 3 days, 1/2 tab daily for 2 days PREDNISONE 20 MG ORAL TABLET 512659 PREDNISONE Inactive CEFDINIR 300 MG ORAL CAPSULE by mouth twice a day 2013 CEFDINIR 300 MG ORAL CAPSULE 349922 CEFDINIR Inactive TRIAMCINOLONE ACETONIDE 0.1 % EXTERNAL OINTMENT Apply to affected areas TID for up to 2 weeks TRIAMCINOLONE ACETON ZACH 0.1 % EXTERNAL OINTMENT 2817988 TRIAMCINOLONE ACETONIDE Inactive PREDNISONE 20 MG ORAL TABLET 2 tabs daily for 3 days, 1 tab daily for 3 days, 1/2 tab daily for 2 days PREDNISONE 20 MG ORAL T ABLET 042498 PREDNISONE Inactive BACTRIM DS 800-160 MG ORAL TABLET 1 po BID x 7 days 29/04/10 BACTRIM DS 800-160 MG ORAL TABLET 171130 SULFAMETHOXAZOLE-TRIMETHOP RIM Inactive CIPRO 500 MG ORAL TABLET 1 tablet by mouth twice daily CIPRO 500 MG ORAL TABLET 712365 CIPROFLOXACIN HCL Inactive AZITHROMYCIN 250 MG ORAL TABLET 2 po qd x 1 day, then 1 po q d x 4 days AZITHROMYCIN 250 MG ORAL TABLET 524946 AZITHROMY SPARKLE Inactive FLAGYL 500 MG ORAL TABLET 1 tablet by mouth bid 04/13 FLAGYL 500 MG ORAL TABLET 250216 METRONIDAZOLE Inactive AZITHROMYCIN 250 MG ORAL TABLET 2 po qd x 1 day, then 1 po q d x 4 days AZITHROMYCIN 250 MG ORAL TABLET 082072 AZITHROMY SPARKLE Inactive AMOXICILLIN 500 MG ORAL CAPSULE 2 po BID x 10 days 01/15/27 AMOXICILLIN 500 MG ORAL CAPSULE 331832 AMOXICILLIN Inactive AMOXICILLIN 500 MG ORAL CAPSULE 2 po BID x 14 days for H. Pylori AMOXICILLIN 500 MG ORAL CAPSULE 499876 AMOXICILLIN Inactive CLARITHROMYCIN 500 MG ORAL TABLET 1 tab po BID x 14 days CLARITHROMYCIN 500 MG ORAL TABLET 813293 CLARITHROMYCIN Inacti ve FLAGYL 500 MG ORAL TABLET 1 tablet by mouth bid 08/29 FLAGYL 500 MG ORAL TABLET 486587 METRONIDAZOLE Inactive PROTONIX 40 MG ORAL TABLET DELAYED RELEASE 1 pill by m outh daily, for acid reflux PROTONIX 40 MG ORAL TABLET DELAYED RELEAS E 011582 PANTOPRAZOLE SODIUM Inactive Immunizations Vaccine Administration Date [...] Panel - Chemistry sodium, serum 142 mmol/L 401-748 0185/07/22 carbon dioxide, venous blood 26.3 mmol/L 21.0-32 [...] 0.80 mg/dL 0.00-1.00 cholesterol, serum 172 mg/dL [phone]/07/22 triglyceride, serum, fasting 222 mg/dL 30-200 HDL [...] 0-29 Encounters Code Encounter Date Provider Facility CPT-35423 Level 3 Est. Patient 06:02:19 CDT Radha Dic k DIELECTRIC PRESS OPERATOR-C [facility] CPT-18109 Level 3 Est. Patient 09:11:53 CDT Radha Dic k DIELECTRIC PRESS OPERATOR-C [facility] CPT-53387 Level 3 Est. Patient 16:46:51 CDT Thomas reynolds DO [facility] CPT-90705 [id number] Vst-Est Level III 14:40:49 CDT Paul Hamlin MD [facility] CPT-04898 Level 4 Est. Patient 11:08:43 CDT Checo Conklin MD [facility] CPT-56135 [id number] Vst-Est Level III 09:37:41 CDT Dangelo Rangel MD [facility] CPT-01765 Level 4 Est. Patient 08:57:51 ESCALATOR ATTENDANT Checo Conklin MD [facility] CPT-41567 Level 3 Est. Patient 11:24:55 ESCALATOR ATTENDANT Efren almendarez [facility] CPT-89091 Level 3 Est. Patient 13:05:44 CDT Paul Hamlin MD [facility] CPT-66749 Level 3 Est. Patient 11:29:55 CDT Checo Conklin MD [facility] CPT-48182 Level 4 Est. Patient 11:08:12 ESCALATOR ATTENDANT Checo Conklin MD [facility] CPT-50267 Level 4 Est. Patient 16:06:48 ESCALATOR ATTENDANT Checo Conklin MD [facility] CPT-50818 Level 3 Est. Patient 09:11:49 CDT Efren almendarez [facility] CPT-29675 Level 2 Est. Patient 19:53:27 CDT Tanner hill MD [facility] CPT-99237 Level 3 Est. Patient 09:15:34 CDT Efren almendarez [facility] CPT-59650 Level 3 Est. Patient 11:28:51 ESCALATOR ATTENDANT Efren almendarez [facility] CPT-19506 Level 4 Est. Patient 13:55:46 ESCALATOR ATTENDANT Checo Conklin MD [facility] CPT-47774 Level 4 Est. Patient 17:10:53 CDT Checo Conklin MD [facility] CPT-87845 Level 3 Est. Patient 15:56:22 CDT Checo Conklin MD [facility] CPT-84343 Level 3 Est. Patient 15:29:07 CDT Checo Conklin MD [facility] CPT-85196 Level 3 Est. Patient 14:38:41 CDT Checo Conklin MD [facility] CPT-38136 Level 3 Est. Patient 15:22:03 ESCALATOR ATTENDANT Thomas reynolds DO [facility] CPT-17280 Level 3 Est. Patient 13:34:17 ESCALATOR ATTENDANT Checo Conklin MD [facility] CPT-22624 Level 3 Est. Patient 12:29:32 CDT Dangelo arroyo MD [facility] CPT-68713 Level 3 Est. Patient 16:53:02 CDT Checo Conklin MD [facility] CPT-59011 Level 3 Est. Patient 16:37:13 CDT Checo Conklin MD [facility] CPT-11739 Level 3 Est. Patient 16:16:59 CDT Paul Hamlin MD [facility] CPT-93933 Level 3 Est. Patient 14:20:13 CDT Dangelo arroyo MD [facility] CPT-36571 Level 4 Est. Patient 11:29:33 CDT Checo Conklin MD [facility] CPT-46423 Level 3 Est. Patient 17:08:31 CDT Checo Conklin MD [facility] CPT-08314 Level 3 Est. Patient 16:50:42 ESCALATOR ATTENDANT Checo Conklin MD [facility] CPT-07146 Level 4 Est. Patient 09:26:08 ESCALATOR ATTENDANT Checo Conklin MD [facility] CPT-42919 Level 3 Est. Patient 11:37:10 CDT Checo Conklin MD [facility] CPT-58843 Level 4 Est. Patient 14:07:38 CDT Checo Conklin MD [facility] CPT-28945 Level 3 Est. Patient 09:54:41 CDT Checo Conklin MD [facility] CPT-29917 Level 3 Est. Patient 11:10:54 CDT Paul Hamlin MD [facility] CPT-71329 Level 3 Est. Patient 14:16:56 ESCALATOR ATTENDANT Checo Conklin MD [facility] CPT-46806 Level 3 Est. Patient 11:04:11 ESCALATOR ATTENDANT Checo Conklin MD [facility] CPT-31694 Level 3 Est. Patient 17:09:26 CDT Dangelo arroyo MD [facility] CPT-87530 Level 3 Est. 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
--- OUTSIDE RECORDS SUMMARY | 2019-09-29 01:07 | XMS REPORT | Clinical Summary ---
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 Body Mass Index 27.0-27.9, adult Body [...] Conklin MD OTITIS MEDIA-RIGHT ICD-382.9 Inactive Checo Cnoklin MD Onychomycosis, toenails ICD-110.1 Inactive Aracelis Conklin [...] Generic Name NDC Status Provider Patient Instruction ZOLPIDEM TARTRATE 5 MG TABS TAKE ONE TABLET BY MOUTH ONE TI ME DAILY IF NEEDED ZOLPIDEM TARTRATE [id number] Active 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 APRN-[place] Active CELEXA 20 MG ORAL TABLET take half a tab for 5 days t hen whole tab daily, may take in evening, for depression/anxiety CITALOPR AM HYDROBROMIDE 93276698013 Active 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 APRN-C Active PROZAC 10 MG ORAL CAPSULE 1 PO Daily FLUOXETINE HCL 02343365080 No Longer Active 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 APRN-C Active VYVANSE 30 MG ORAL CAPSULE 1 PO daily LISDEXAMF ETAMINE DIMESYLATE 15187625135 Active 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 APRN-C Active XANAX 0.5 MG ORAL TABLET 1 tablet PO BID; PRN A LPRAZOLAM 09014350521 Active 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 [employer]NER [employer] BLOCK MACHINE OPERATOR-C Active SIMVASTATIN 20 MG ORAL TABLET 1 tablet PO daily SI MVASTATIN 84213730550 Active Radhasantos Whitaker [employer]NER [employer]ACE BLOCK MACHINE OPERATOR-C Active IBUPROFEN 800 MG ORAL TABLET 1 tablet PO q8hr PRN IBUPROFEN 06438918619 Active 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 APRN-C Active ALBUTEROL SULFATE HFA 108 (90 BASE) MCG/ACT INHALATION AEROSOL SOLUTION 2 puffs, INH, q4hr PRN ALBUTEROL SULFATE 46837288641 Active 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 A PRN-C Active AMBIEN 5 MG ORAL TABLET 1 po qHS PRN Insomnia ZOLPIDEM TARTRATE 23795963526 No Longer Active 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 APRN-C Active XANAX 0.5 MG ORAL TABLET 1 po BID PRN anxiety A LPRAZOLAM 52610353890 No Longer Active 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 APRN-C Active PAROXETINE HCL 40 MG ORAL TABLET 1 po qd PAR OXETINE HCL 52781169697 No Longer Active 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 APRN-C Active FOCALIN XR 10 MG ORAL CAPSULE EXTENDED RELEASE 24 HOUR 1 po q a. m. DEXMETHYLPHENIDATE HCL 66188789592 No Longer Active Radha Low [employer]NER [employer]ACE BLOCK MACHINE OPERATOR-C Active SIMVASTATIN 20 MG ORAL TABLET 1 po qd SIMVAS TATIN 93774555546 No Longer Active 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 APRN-C Active FUROSEMIDE 20 MG ORAL TABLET 1 daily for swelling 2018 FUROSEMIDE 65783166525 No Longer Active 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 APRN-C Active KLOR-CON 10 10 MEQ ORAL TABLET EXTENDED RELEASE 1 daily with furosemide POTASSIUM CHLORIDE 34755398887 No Longer Active 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 APRN-C Active HYDROCHLOROTHIAZIDE 12.5 MG ORAL CAPSULE 1 po qd PRN Edema 01/10 HYDROCHLOROTHIAZIDE 86590571147 No Longer Active Paul Hamlin MD Active IBUPROFEN 800 MG ORAL TABLET 1 tab every 8 hours as needed for p ain IBUPROFEN 59653825785 No Longer Active Paul Hamlin MD Active MIRALAX ORAL POWDER 8.5 to 17g po qd PRN Constipation POLYETHYLENE GLYCOL 3350 20691073338 No Longer Active Checo Conklin MD Active PROTONIX 40 MG ORAL TABLET DELAYED RELEASE 1 pill by m outh daily, for acid reflux PANTOPRAZOLE SODIUM 51809708127 No Longer Activ e Corry Méndez LPN Active FLAGYL 500 MG ORAL TABLET 1 tablet by mouth bid 08/29 METRONIDAZOLE 34509780583 No Longer Active Corry Méndez LPN Active CLARITHROMYCIN 500 MG ORAL TABLET 1 tab po BID x 14 days CLARITHROMYCIN 90301686438 No Longer Active Corry Méndez LPN Active AMOXICILLIN 500 MG ORAL CAPSULE 2 po BID x 14 days for H. Pylori AMOXICILLIN 68844042281 No Longer Active Corry Méndze LPN Active FLUTICASONE PROPIONATE 50 MCG/ACT NASAL SUSPENSION 2 s prays/nostril qd PRN Congestion/Allergies FLUTICASONE PROPIONATE 6061821117 9 No Longer Active Checo Conklin MD Active AMOXICILLIN 500 MG ORAL CAPSULE 2 po BID x 10 days 201 01/15/27 AMOXICILLIN 89946444223 No Longer Active Checo Conklin MD Activ e CLARITIN 10 MG ORAL TABLET 1 tablet by mouth daily as needed for allergies LORATADINE 56479108263 No Longer Active Checo Ortiz MD Active BACTRIM DS 800-160 MG ORAL TABLET 1 tab by mouth twice daily 201 12/19/26 TRIMETHOPRIM-SULFAMETHOXAZOLE 08472999998 No Longer Active Ragini Carrillo MD Active DIFLUCAN 150 MG ORAL TABLET 1 tablet by mouth qod 2015 FLUCONAZOLE 99948802083 No Longer Active Efren Medel [employer]NER BRACE BLOCK MACHINE OPERATOR Act mike AZITHROMYCIN 250 MG ORAL TABLET 2 po qd x 1 day, then 1 po q d x 4 days AZITHROMYCIN 58891694961 No Longer Active Efren flores [employer]NER BRACE BLOCK MACHINE OPERATOR Active FLAGYL 500 MG ORAL TABLET 1 tablet by mouth bid 04/13 METRONIDAZOLE 12922069713 No Longer Active Checo Conklin MD Acti ve MAGNESIUM CITRATE 1.745 GM/30ML ORAL SOLUTION 150ml po BID P RN Constipation MAGNESIUM CITRATE 10107758049 No Longer Active Checo Conklin MD Active BACTROBAN 2 % EXTERNAL CREAM Apply to affected area BID for up to 10 days MUPIROCIN CALCIUM 94763234357 No Longer Active Checo Conklin MD Active HYDROCODONE-ACETAMINOPHEN 5-325 MG ORAL TABLET 1 tab b y mouth every 6 hours as needed HYDROCODONE-ACETAMINOPHEN 52239025215 No Longer Active Checo Conklin MD Active IBUPROFEN 800 MG ORAL TABLET 1 tab every 8 hours with food 03/20 IBUPROFEN 28570833964 No Longer Active Checo Conklin MD Active DIFLUCAN 150 MG ORAL TABLET 1 tablet by mouth if neede d, hold until symptoms start FLUCONAZOLE 73829427278 No Longer Active Checo Conklin MD Active BACTRIM DS 800-160 MG ORAL TABLET 1 tab by mouth twice daily 201 11/23/03 TRIMETHOPRIM-SULFAMETHOXAZOLE 84186988686 No Longer Active Bonnie Méndez LPN Active HYDROCODONE-ACETAMINOPHEN 5-325 MG ORAL TABLET 0.5 to 1 tab by mouth every 6 hours as needed HYDROCODONE-ACETAMINOPHEN 51400970734 No Longer Active Checo Conklin MD Active ONDANSETRON 8 MG ORAL TABLET DISINTEGRATING place one tablet on tongue and allow to dissolve every 6 hours as needed for vomitting ONDANSETRON 59527076590 No Longer Active Checo Conklin MD Activ e COMPRO 25 MG RECTAL SUPPOSITORY insert or apply one garza ppository rectally as directed every 12 hours as needed for nausea PROCHLORPERAZINE 70252354549 No Longer Active Checo Conklin MD A ctive SUMATRIPTAN SUCCINATE 100 MG ORAL TABLET Take one PRN for migran e SUMATRIPTAN SUCCINATE 06022728256 No Longer Active Checo Conklin MD Active TRAVEL SICKNESS 25 MG ORAL TABLET CHEWABLE chew and sw allow one tablet every 6 hours as needed MECLIZINE HCL 24589417557 No Longer A ctive Checo Conklin MD Active BUPROPION HCL ER (SR) 100 MG ORAL TABLET EXTENDED RELE ASE 12 HOUR take one tablet by mouth one time daily for one week then take 1 two times daily BUPROPION HCL 24318622562 No Longer Active Checo gallagher MD Active TERBINAFINE HCL 250 MG ORAL TABLET take one table PO one time da moises TERBINAFINE HCL 15538836154 No Longer Active Checo Conklin MD Active METOCLOPRAMIDE HCL 10 MG ORAL TABLET take one PO tid PRN nausea METOCLOPRAMIDE HCL 83056405404 No Longer Active Checo Conklin MD Active DICLOFENAC SODIUM 75 MG ORAL TABLET DELAYED RELEASE 1 tablet by mouth twice daily PRN Knee pain DICLOFENAC SODIUM 49740772042 No Longer Active Checo Conklin MD Active LAMISIL 250 MG ORAL TABLET 1 po qd TERBINAFI NE HCL 12847824059 No Longer Active Checo Conklin MD Active REGLAN 10 MG ORAL TABLET 1 po TID PRN Nausea 3 METOCLOPRAMIDE HCL 33148713550 No Longer Active Checo Conklin MD Active CELEXA 20 MG ORAL TABLET 1 tablet by mouth daily 09/26 CITALOPRAM HYDROBROMIDE 34874346661 No Longer Active Checo Conklin MD Active AZITHROMYCIN 250 MG ORAL TABLET 2 po qd x 1 day, then 1 po q d x 4 days AZITHROMYCIN 12247486397 No Longer Active Checo Ortiz MD Active HYDROCODONE-ACETAMINOPHEN 5-325 MG ORAL TABLET 1 po q 6hr PRN Pa in HYDROCODONE-ACETAMINOPHEN 29482644296 No Longer Active Lenora Conklin MD Active PHENAZOPYRIDINE HCL 200 MG ORAL TABLET take 1 tab po TID for bladder pain PHENAZOPYRIDINE HCL 24055538975 No Longer Active Joe Conklin MD Active CIPRO 500 MG ORAL TABLET 1 tablet by mouth twice daily CIPROFLOXACIN HCL 88822997290 No Longer Active Dangelo Rangel MD Active HYDROCODONE-ACETAMINOPHEN 5-325 MG ORAL TABLET 1/2 to 1 po q 4 hours prn cough HYDROCODONE-ACETAMINOPHEN 55301085163 No Longer Activ e Dangelo Rangel MD Active BACTRIM DS 800-160 MG ORAL TABLET 1 po BID x 7 days 29/04/10 SULFAMETHOXAZOLE-TRIMETHOPRIM 11198374279 No Longer Active Checo Conklin MD Active PREDNISONE 20 MG ORAL TABLET 2 tabs daily for 3 days, 1 tab daily for 3 days, 1/2 tab daily for 2 days PREDNISONE 29202647079 No Longer Active Checo Conklin MD Active TRIAMCINOLONE ACETONIDE 0.1 % EXTERNAL OINTMENT Apply to affected areas TID for up to 2 weeks TRIAMCINOLONE ACETONIDE 71456390577 No Longer Active Checo Conklin MD Active CEFDINIR 300 MG ORAL CAPSULE by mouth twice a day 2013 CEFDINIR 27892948321 No Longer Active Dangelo Rangel MD Acti ve BUPROPION HCL ER (SMOKING DET) 150 MG ORAL TABLET EXTE NDED RELEASE 12 HOUR 1 a day for 1 week then 1 twice a day BUPROPION HCL (SMOKING DETER) 03562666411 No Longer Active Checo Conklin MD Active CHANTIX STARTING MONTH KARTHIK 0.5 MG X 11 & 1 MG X 42 ORA L TABLET 0.5mg daily for 3 days, then 0.5mg BID for 4 days, then 1mg BID VARENICLINE TARTRATE 91612084213 No Longer Active Checo Conklin MD Activ e CONCERTA 18 MG ORAL TABLET EXTENDED RELEASE 1 po q a.m. METHYLPHENIDATE HCL 43314862709 No Longer Active Checo Conklin MD Active TRAZODONE HCL 100 MG ORAL TABLET 0.5 to 1 po qHS PRN Insomnia 20 30/07/08 TRAZODONE HCL 38342037769 No Longer Active Checo Conklin MD Active FIORICET 325-50-40 MG TAB 1 tablet by mouth four times daily as needed [id number] 07115437164 No Longer Active Checo Conklin MD Active PHENERGAN CREAM* 25mg applied to wrist q6hr PRN Nausea PHENERGAN CREAM* No Longer Active Checo Conklin MD A ctive FLONASE 50 MCG/ACT NASAL SUSPENSION 1 spray each nostril am and hs FLUTICASONE PROPIONATE 20304151237 No Longer Active Checo Conklin MD Active ANTIPYRINE-BENZOCAINE 5.4-1.4 % OTIC SOLUTION 1-2 drops in affec yohannes ear BENZOCAINE-ANTIPYRINE 56328665968 No Longer Active Checo Conklin MD Active CEFDINIR 300 MG ORAL CAPSULE 1 po bid CEFDINIR 91829298057 No Longer Active Checo Conklin MD Active PREDNISONE 20 MG ORAL TABLET 2 tabs daily for 3 days, 1 tab daily for 3 days, 1/2 tab daily for 2 days PREDNISONE 22069232321 No Longer Active Checo Conklin MD Active AZITHROMYCIN 250 MG ORAL TABLET 2 po qd x 1 day, then 1 po q d x 4 days AZITHROMYCIN 64911837579 No Longer Active Checo Ortiz MD Active PREDNISONE 20 MG ORAL TABLET 2 tabs daily for 3 days, 1 tab daily for 3 days, 1/2 tab daily for 2 days PREDNISONE 42020819679 No Longer Active Checo Conklin MD Active ZITHROMAX Z-KARTHIK 250 MG ORAL TABLET 2 today, then 1 daily for 4 d ays AZITHROMYCIN 03244701132 No Longer Active Paul Hamlin MD Active FOCALIN XR 10 MG ORAL CAPSULE EXTENDED RELEASE 24 HOUR 1 po q a. m. DEXMETHYLPHENIDATE HCL 92186821459 No Longer Active Paul Hamlin MD Active PERCOCET 10-325 MG ORAL TABLET 1 tablet every 6 hours as needed for pain OXYCODONE-ACETAMINOPHEN 60358273131 No Longer Active Paul Hamlin MD Active LORTAB 5-500 MG ORAL TABLET 1/2 to 1 tablet by mouth e very 4 hours as needed for pain HYDROCODONE-ACETAMINOPHEN 09744415318 No Longer Active Checo Conklin MD Active FOCALIN XR 15 MG ORAL CAPSULE EXTENDED RELEASE 24 HOUR 1 po q a. m. DEXMETHYLPHENIDATE HCL 72043199020 No Longer Active Checo Conklin MD Active ZOFRAN ODT 4 MG ORAL TABLET DISINTEGRATING 1 po q6hr PRN Nausea ONDANSETRON 23338115674 No Longer Active Checo Conklin MD Active PERCOCET 5-325 MG ORAL TABLET 1 tablet by mouth every 6 hour s as needed OXYCODONE-ACETAMINOPHEN 97440556216 No Longer Active Checo Conklin MD Active PYRIDIUM 200 MG ORAL TABLET take 1 tab po TID prn urinary pain. PHENAZOPYRIDINE HCL 46283225262 No Longer Active Checo Joshua Active FLUCONAZOLE 150 MG ORAL TABLET take 1 tab po qday once FLUCONAZOLE 55036609120 No Longer Active Dangelo Rangel MD Acti ve CIPRO 500 MG ORAL TABLET 1 tablet by mouth twice daily CIPROFLOXACIN HCL 22884620148 No Longer Active Dangelo Rangel MD Active PYRIDIUM 200 MG ORAL TABLET take 1 tab po TID prn urinary pain. PYRIDIUM 200 MG ORAL TABLET 5210634 PHENAZOPYRIDINE HCL Inactive PERCOCET 5-325 MG ORAL TABLET 1 tablet by mouth every 6 hour s as needed PERCOCET 5-325 MG ORAL TABLET 2521675 OXYCODONE-ACETAMINOPHEN Inactive ZOFRAN ODT 4 MG ORAL [...] for pain PERCOCET 10-325 MG ORAL TABLET 1859148 OXYCODONE-ACETAMI NOPHEN Inactive FOCALIN XR 10 MG ORAL CAPSULE EXTENDED RELEASE 24 HOUR 1 po q a. m. FOCALIN XR 10 MG ORAL CAPSULE EXTENDED RELEASE 24 HOUR DEXMETHYLPHENIDATE HCL Inactive CEFDINIR 300 MG ORAL CAPSULE 1 po bid CEFDINI R 300 MG ORAL CAPSULE 439974 CEFDINIR Inactive ANTIPYRINE-BENZOCAINE 5.4-1.4 % OTIC SOLUTION [...] 30/07/08 TRAZODONE HCL 100 MG ORAL TABLET 375320 TRAZODONE HCL Inactive CONCERTA 18 MG ORAL [...] cough HYDROCODONE-ACETAMINOPHEN 5-325 MG ORAL TABLET 8 69255 HYDROCODONE-ACETAMINOPHEN Inactive PHENAZOPYRIDINE HCL 200 MG ORAL TABLET take 1 tab po TID for bladder pain PHENAZOPYRIDINE HCL 200 MG ORAL TABLET 1415083 PHENAZOPYRIDINE HCL Inactive HYDROCODONE-ACETAMINOPHEN 5-325 MG ORAL TABLET 1 po q 6hr PRN Pa in HYDROCODONE-ACETAMINOPHEN 5-325 MG ORAL TABLET 656226 HYDROCODONE-ACETAMINOPHEN Inactive CELEXA 20 MG ORAL TABLET 1 tablet by mouth daily 09/26 CELEXA 20 MG ORAL TABLET 047241 CITALOPRAM HYDROBROMIDE Inactive REGLAN 10 MG ORAL TABLET 1 po TID PRN Nausea 3 REGLAN 10 MG ORAL TABLET 884720 METOCLOPRAMIDE HCL Inactive LAMISIL 250 MG ORAL TABLET 1 po qd L AMISIL 250 MG ORAL TABLET 719198 TERBINAFINE HCL Inactive DICLOFENAC SODIUM 75 MG ORAL TABLET DELAYED RELEASE 1 tablet by mouth twice daily PRN Knee pain DICLOFENAC SODIUM 75 MG ORAL TABLET DELAYED RELEASE 421136 DICLOFENAC SODIUM Inactive METOCLOPRAMIDE HCL 10 MG ORAL TABLET take one PO tid PRN nausea METOCLOPRAMIDE HCL 10 MG ORAL TABLET 467642 METOCLOPRAM ZACH HCL Inactive TERBINAFINE HCL 250 MG ORAL TABLET take one table PO one time da moises TERBINAFINE HCL 250 MG ORAL TABLET 066599 TERBINAFINE H CL Inactive BUPROPION HCL ER [...] SICKNESS 25 M G ORAL TABLET CHEWABLE 334438 MECLIZINE HCL Inactive SUMATRIPTAN SUCCINATE 100 MG ORAL TABLET Take one PRN for migran e SUMATRIPTAN SUCCINATE 100 MG ORAL TABLET 516435 SUMATRIPTAN SUCCINATE Inactive COMPRO 25 MG RECTAL SUPPOSITORY insert or apply one garza ppository rectally as directed every 12 hours as needed for nausea COMPRO 25 MG RECTAL SUPPOSITORY 088578 PROCHLORPERAZINE Inactive ONDANSETRON 8 MG ORAL TABLET DISINTEGRATING place one tablet on tongue and allow to dissolve every 6 hours as needed for vomitting ONDANSETRON 8 MG ORAL TABLET DISINTEGRATING 982834 ONDANSETRON Inactive HYDROCODONE-ACETAMINOPHEN 5-325 MG ORAL TABLET 0.5 to 1 tab by mouth every 6 hours as needed HYDROCODONE-ACETAMIN OPHEN 5-325 MG ORAL TABLET 807423 HYDROCODONE-ACETAMINOPHEN Inactive BACTRIM DS 800-160 MG ORAL TABLET 1 tab by mouth twice daily 201 11/23/03 BACTRIM DS 800-160 MG ORAL TABLET 123751 TRIMETHOPRIM-SULFAMETHOXAZOLE Inactive DIFLUCAN 150 MG ORAL TABLET 1 tablet by mouth if neede d, hold until symptoms start DIFLUCAN 150 MG ORAL TABLET 19760325 FLUCONAZ OLE Inactive IBUPROFEN 800 MG ORAL TABLET 1 tab every 8 hours with food 03/20 IBUPROFEN 800 MG ORAL TABLET IBUPROFEN Krupa ctive HYDROCODONE-ACETAMINOPHEN 5-325 MG ORAL TABLET 1 tab b y mouth every 6 hours as needed HYDROCODONE-ACETAMINOPHEN 5-325 MG ORAL TABLET 646933 HYDROCODONE-ACETAMINOPHEN Inactive BACTROBAN 2 % EXTERNAL CREAM Apply to affected area BID for up to 10 days BACTROBAN 2 % EXTERNAL CREAM MUPIROCIN CA LCIUM Inactive MAGNESIUM CITRATE 1.745 GM/30ML ORAL SOLUTION 150ml po BID P RN Constipation MAGNESIUM CITRATE 1.745 GM/30ML ORAL SOLUTION 10 59040 MAGNESIUM CITRATE Inactive DIFLUCAN 150 MG ORAL TABLET 1 tablet by mouth qod 2015 DIFLUCAN 150 MG ORAL TABLET 991211 FLUCONAZOLE Inactive BACTRIM DS 800-160 MG ORAL TABLET 1 tab by mouth twice daily 201 12/19/26 BACTRIM DS 800-160 MG ORAL TABLET 673257 TRIMETHOPRIM-SULFAMETHOXAZOLE Inactive CLARITIN 10 MG ORAL TABLET 1 tablet by mouth daily as needed for allergies CLARITIN 10 MG ORAL TABLET 150480 LORATADINE I nactive FLUTICASONE PROPIONATE 50 MCG/ACT NASAL SUSPENSION 2 s prays/nostril qd PRN Congestion/Allergies FLUTICASONE PROPION ATE 50 MCG/ACT NASAL SUSPENSION 4912589 FLUTICASONE PROPIONATE Inactive MIRALAX ORAL POWDER 8.5 to 17g po qd PRN Constipation MIRALAX ORAL POWDER 266602 POLYETHYLENE GLYCOL 3350 Inactive IBUPROFEN 800 MG ORAL TABLET 1 tab every 8 hours as needed for p ain IBUPROFEN 800 MG ORAL TABLET 949430 IBUPROFEN Krupa ctive HYDROCHLOROTHIAZIDE 12.5 MG ORAL CAPSULE 1 po qd PRN Edema 01/10 HYDROCHLOROTHIAZIDE 12.5 MG ORAL CAPSULE 728321 HYDROCH LOROTHIAZIDE Inactive KLOR-CON 10 10 MEQ ORAL TABLET EXTENDED RELEASE 1 daily with furosemide KLOR-CON 10 10 MEQ ORAL TABLET EXTENDED RELEASE POTASSIUM CHLORIDE Inactive FUROSEMIDE 20 MG ORAL TABLET 1 daily for swelling 2018 FUROSEMIDE 20 MG ORAL TABLET 978078 FUROSEMIDE Inactive SIMVASTATIN 20 MG ORAL TABLET 1 po qd SIMVASTATIN 20 MG ORAL TABLET 495871 SIMVASTATIN Inactive FOCALIN XR 10 MG ORAL CAPSULE EXTENDED RELEASE 24 HOUR 1 po q a. m. FOCALIN XR 10 MG ORAL CAPSULE EXTENDED RELEASE 24 HOUR DEXMETHYLPHENIDATE HCL Inactive PAROXETINE HCL 40 MG ORAL TABLET 1 po qd PAROXETINE HCL 40 MG ORAL TABLET 2435152 PAROXETINE HCL Inactive XANAX 0.5 MG ORAL TABLET 1 po BID PRN anxiety XANAX 0.5 MG ORAL TABLET 148524 ALPRAZOLAM Inactive AMBIEN 5 MG ORAL TABLET 1 po qHS PRN Insomnia AMBIEN 5 MG ORAL TABLET 192156 ZOLPIDEM TARTRATE Inactive PROZAC 10 MG ORAL CAPSULE 1 PO Daily LA OZAC 10 MG ORAL CAPSULE 883437 FLUOXETINE HCL Inactive CIPRO 500 MG ORAL TABLET 1 tablet by mouth twice daily CIPRO 500 MG ORAL TABLET 069518 CIPROFLOXACIN HCL Inactive FLUCONAZOLE 150 MG ORAL TABLET take 1 tab po qday once FLUCONAZOLE 150 MG ORAL TABLET 787432 FLUCONAZOLE Inactive ZITHROMAX Z-KARTHIK 250 MG ORAL TABLET 2 today, then 1 daily for 4 d ays ZITHROMAX Z-KARTHIK 250 MG ORAL TABLET 528835 AZITHROMYCIN Inactive PREDNISONE 20 MG ORAL TABLET 2 tabs daily for 3 days, 1 tab daily for 3 days, 1/2 tab daily for 2 days PREDNISONE 20 MG ORAL T ABLET 586414 PREDNISONE Inactive AZITHROMYCIN 250 MG ORAL TABLET 2 po qd x 1 day, then 1 po q d x 4 days AZITHROMYCIN 250 MG ORAL TABLET 400756 AZITHROMY SPARKLE Inactive PREDNISONE 20 MG ORAL TABLET 2 tabs daily for 3 days, 1 tab daily for 3 days, 1/2 tab daily for 2 days PREDNISONE 20 MG ORAL TABLET 156596 PREDNISONE Inactive CEFDINIR 300 MG ORAL CAPSULE by mouth twice a day 2013 CEFDINIR 300 MG ORAL CAPSULE 244668 CEFDINIR Inactive TRIAMCINOLONE ACETONIDE 0.1 % EXTERNAL OINTMENT Apply to affected areas TID for up to 2 weeks TRIAMCINOLONE ACETON ZACH 0.1 % EXTERNAL OINTMENT 9588327 TRIAMCINOLONE ACETONIDE Inactive PREDNISONE 20 MG ORAL TABLET 2 tabs daily for 3 days, 1 tab daily for 3 days, 1/2 tab daily for 2 days PREDNISONE 20 MG ORAL T ABLET 060248 PREDNISONE Inactive BACTRIM DS 800-160 MG ORAL TABLET 1 po BID x 7 days 29/04/10 BACTRIM DS 800-160 MG ORAL TABLET 605482 SULFAMETHOXAZOLE-TRIMETHOP RIM Inactive CIPRO 500 MG ORAL TABLET 1 tablet by mouth twice daily CIPRO 500 MG ORAL TABLET 826361 CIPROFLOXACIN HCL Inactive AZITHROMYCIN 250 MG ORAL TABLET 2 po qd x 1 day, then 1 po q d x 4 days AZITHROMYCIN 250 MG ORAL TABLET 187646 AZITHROMY SPARKLE Inactive FLAGYL 500 MG ORAL TABLET 1 tablet by mouth bid 04/13 FLAGYL 500 MG ORAL TABLET 005925 METRONIDAZOLE Inactive AZITHROMYCIN 250 MG ORAL TABLET 2 po qd x 1 day, then 1 po q d x 4 days AZITHROMYCIN 250 MG ORAL TABLET 711528 AZITHROMY SPARKLE Inactive AMOXICILLIN 500 MG ORAL CAPSULE 2 po BID x 10 days 01/15/27 AMOXICILLIN 500 MG ORAL CAPSULE 991214 AMOXICILLIN Inactive AMOXICILLIN 500 MG ORAL CAPSULE 2 po BID x 14 days for H. Pylori AMOXICILLIN 500 MG ORAL CAPSULE 477782 AMOXICILLIN Inactive CLARITHROMYCIN 500 MG ORAL TABLET 1 tab po BID x 14 days CLARITHROMYCIN 500 MG ORAL TABLET 038236 CLARITHROMYCIN Inacti ve FLAGYL 500 MG ORAL TABLET 1 tablet by mouth bid 08/29 FLAGYL 500 MG ORAL TABLET 965446 METRONIDAZOLE Inactive PROTONIX 40 MG ORAL TABLET DELAYED RELEASE 1 pill by m outh daily, for acid reflux PROTONIX 40 MG ORAL TABLET DELAYED RELEAS E 141572 PANTOPRAZOLE SODIUM Inactive Immunizations Vaccine Administration Date [...] Panel - Chemistry sodium, serum 142 mmol/L 751-255 1600/07/22 carbon dioxide, venous blood 26.3 mmol/L 21.0-32 [...] 0.80 mg/dL 0.00-1.00 cholesterol, serum 172 mg/dL 793-528 7087/07/22 triglyceride, serum, fasting 222 mg/dL 30-200 HDL [...] 0-29 Encounters Code Encounter Date Provider Facility CPT-80267 Level 3 Est. 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 Patient 09:11:53 CDT Radha Dic k CORNER BRACE BLOCK MACHINE OPERATOR-C [facility] CPT-72066 Level 3 Est. Patient 16:46:51 CDT Thomas reynolds DO [facility] CPT-92340 [id number] Vst-Est Level III 14:40:49 CDT Paul Hamlin MD [facility] CPT-11084 Level 4 Est. Patient 11:08:43 CDT Checo Conklin MD [facility] CPT-68762 [id number] Vst-Est Level III 09:37:41 CDT Dangelo Rangel MD [facility] CPT-09619 Level 4 Est. Patient 08:57:51 SOCIAL WELFARE RESEARCH WORKER Checo Conklin MD [facility] CPT-42693 Level 3 Est. Patient 11:24:55 SOCIAL WELFARE RESEARCH WORKER Efren almendarez [facility] CPT-39531 Level 3 Est. Patient 13:05:44 CDT Paul Hamlin MD [facility] CPT-31391 Level 3 Est. Patient 11:29:55 CDT Checo Conklin MD [facility] CPT-74852 Level 4 Est. Patient 11:08:12 SOCIAL WELFARE RESEARCH WORKER Checo Conklin MD [facility] CPT-82809 Level 4 Est. Patient 16:06:48 SOCIAL WELFARE RESEARCH WORKER Checo Conklin MD [facility] CPT-48356 Level 3 Est. Patient 09:11:49 CDT Efren almendarez [facility] CPT-36103 Level 2 Est. Patient 19:53:27 CDT Tanner hill MD [facility] CPT-83921 Level 3 Est. Patient 09:15:34 CDT Efren almendarez [facility] CPT-33796 Level 3 Est. Patient 11:28:51 SOCIAL WELFARE RESEARCH WORKER Efren almendarez [facility] CPT-89885 Level 4 Est. Patient 13:55:46 SOCIAL WELFARE RESEARCH WORKER Checo Conklin MD [facility] CPT-42929 Level 4 Est. Patient 17:10:53 CDT Checo Conklin MD [facility] CPT-29404 Level 3 Est. Patient 15:56:22 CDT Checo Conklin MD [facility] CPT-62606 Level 3 Est. Patient 15:29:07 CDT Checo Conklin MD [facility] CPT-72078 Level 3 Est. Patient 14:38:41 CDT Checo Conklin MD [facility] CPT-15010 Level 3 Est. Patient 15:22:03 SOCIAL WELFARE RESEARCH WORKER Thomas reynolds DO [facility] CPT-46205 Level 3 Est. Patient 13:34:17 SOCIAL WELFARE RESEARCH WORKER Checo Conklin MD [facility] CPT-00247 Level 3 Est. Patient 12:29:32 CDT Dangelo arroyo MD [facility] CPT-24400 Level 3 Est. Patient 16:53:02 CDT Checo Conklin MD [facility] CPT-27954 Level 3 Est. Patient 16:37:13 CDT Checo Conklin MD [facility] CPT-64702 Level 3 Est. Patient 16:16:59 CDT Paul Hamlin MD [facility] CPT-33156 Level 3 Est. Patient 14:20:13 CDT Dangelo arroyo MD [facility] CPT-33225 Level 4 Est. Patient 11:29:33 CDT Checo Conklin MD [facility] CPT-11102 Level 3 Est. Patient 17:08:31 CDT Checo Conklin MD [facility] CPT-92259 Level 3 Est. 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 Patient 11:37:10 CDT Checo Conklin MD [facility] CPT-48757 Level 4 Est. Patient 14:07:38 CDT Checo Conklin MD [facility] CPT-01768 Level 3 Est. Patient 09:54:41 CDT Checo Conklin MD [facility] CPT-84892 Level 3 Est. Patient 11:10:54 CDT Paul Hamlin MD [facility] CPT-64270 Level 3 Est. Patient 14:16:56 [employer] WORKER Checo Conklin MD [facility] CPT-36043 Level 3 Est. Patient 11:04:11 [employer] WORKER Checo Conklin MD [facility] CPT-04190 Level 3 Est. Patient 17:09:26 CDT Dangelo arroyo MD [facility] CPT-45796 Level 3 Est. 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
--- OUTSIDE RECORDS SUMMARY | 2019-09-29 01:08 | XMS REPORT | Clinical Summary ---
Author Author Admin, Bethany Gonzales Organization [employer] [facility] Address Unknown Phone Unavailable Allergies, Adverse Reactions, [...] site Knee pain, right 719.46 Resolved Checo Conkiln MD Pain in joint involving lower leg [...] Index 27.0-27.9 Adult Resolved 2018 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 TUBE OPERATOR-C Body Mass Index 27.0-27.9, adult Body [...] Name NDC Status Provider Patient Instruction CELEXA 10 MG ORAL TABLET 1 tab PO daily for anxiety/d epression may increase to 2 tabs daily in 2 weeks if needed CITALOPRAM HYDRO BROMIDE 89345089548 Active 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 APRN-C Active PROZAC 10 MG ORAL CAPSULE 1 PO Daily FLUOXETINE HCL 39675984796 No Longer Active 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 APRN-C Active VYVANSE 30 MG ORAL CAPSULE 1 PO daily LISDEXAMF ETAMINE DIMESYLATE 92054000860 Active Radhasantos Whitaker TUBE OPERATOR-C Active XANAX 0.5 MG ORAL TABLET 1 tablet PO BID; PRN A LPRAZOLAM 92674537865 Active Radha Sherman TUBE OPERATOR-C Active SIMVASTATIN 20 MG ORAL TABLET 1 tablet PO daily SI MVASTATIN 55745032516 Active Radha Sherman TUBE OPERATOR-C Active IBUPROFEN 800 MG ORAL TABLET 1 tablet PO q8hr PRN IBUPROFEN 43994441131 Active Radha Sherman TUBE OPERATOR-C Active AMBIEN 5 MG ORAL TABLET 1 tablet PO once daily; PRN ZOLPIDEM TARTRATE 10600872926 Active Radhasantos Whitaker TUBE OPERATOR-C Active ALBUTEROL SULFATE HFA 108 (90 BASE) MCG/ACT INHALATION AEROSOL SOLUTION 2 puffs, INH, q4hr PRN ALBUTEROL SULFATE 99723741189 Active Radha Sherman A PRN-C Active AMBIEN 5 MG ORAL TABLET 1 po qHS PRN Insomnia ZOLPIDEM TARTRATE 40585472301 No Longer Active 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 APRN-C Active XANAX 0.5 MG ORAL TABLET 1 po BID PRN anxiety A LPRAZOLAM 96968793134 No Longer Active 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 TUBE OPERATOR-C Active PAROXETINE HCL 40 MG ORAL TABLET 1 po qd PAR OXETINE HCL 44685571713 No Longer Active 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 TUBE OPERATOR-C Active FOCALIN XR 10 MG ORAL CAPSULE EXTENDED RELEASE 24 HOUR 1 po q a. m. DEXMETHYLPHENIDATE HCL 84717785091 No Longer Active Radha Low TUBE OPERATOR-C Active SIMVASTATIN 20 MG ORAL TABLET 1 po qd SIMVAS TATIN 04331313715 No Longer Active 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 TUBE OPERATOR-C Active FUROSEMIDE 20 MG ORAL TABLET 1 daily for swelling 2018 FUROSEMIDE 24167724558 No Longer Active Radhasantos Whitaker TUBE OPERATOR-C Active KLOR-CON 10 10 MEQ ORAL TABLET EXTENDED RELEASE 1 daily with furosemide POTASSIUM CHLORIDE 58614293591 No Longer Active 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 TUBE OPERATOR-C Active HYDROCHLOROTHIAZIDE 12.5 MG ORAL CAPSULE 1 po qd PRN Edema 01/10 HYDROCHLOROTHIAZIDE 54348712290 No Longer Active Paul Hamlin MD Active IBUPROFEN 800 MG ORAL TABLET 1 tab every 8 hours as needed for p ain IBUPROFEN 44895487716 No Longer Active Paul Hamlin MD Active MIRALAX ORAL POWDER 8.5 to 17g po qd PRN Constipation POLYETHYLENE GLYCOL 3350 01506432805 No Longer Active Checo Conklin MD Active PROTONIX 40 MG ORAL TABLET DELAYED RELEASE 1 pill by m [facility] daily, for acid reflux PANTOPRAZOLE SODIUM 92332958312 No Longer Activ e Corry Méndez LPN Active FLAGYL 500 MG ORAL TABLET 1 tablet by mouth bid 08/29 METRONIDAZOLE 36780701703 No Longer Active Corry Méndez LPN Active CLARITHROMYCIN 500 MG ORAL TABLET 1 tab po BID x 14 days CLARITHROMYCIN 50417994994 No Longer Active Corry Méndez LPN Active AMOXICILLIN 500 MG ORAL CAPSULE 2 po BID x 14 days for H. Pylori AMOXICILLIN 47488137638 No Longer Active Corry Méndez LPN Active FLUTICASONE PROPIONATE 50 MCG/ACT NASAL SUSPENSION 2 s prays/nostril qd PRN Congestion/Allergies FLUTICASONE PROPIONATE 8564868946 9 No Longer Active Checo Conklin MD Active AMOXICILLIN 500 MG ORAL CAPSULE 2 po BID x 10 days 201 01/15/27 AMOXICILLIN 14655407268 No Longer Active Checo Conklin MD Activ e CLARITIN 10 MG ORAL TABLET 1 tablet by mouth daily as needed for allergies LORATADINE 60700843522 No Longer Active Checo Ortiz MD Active BACTRIM DS 800-160 MG ORAL TABLET 1 tab by mouth twice daily 201 12/19/26 TRIMETHOPRIM-SULFAMETHOXAZOLE 44067052321 No Longer Active Ragini Carrillo MD Active DIFLUCAN 150 MG ORAL TABLET 1 tablet by mouth qod 2015 FLUCONAZOLE 89200610814 No Longer Active Efren Medel TUBE OPERATOR Act mike AZITHROMYCIN 250 MG ORAL TABLET 2 po qd x 1 day, then 1 po q d x 4 days AZITHROMYCIN 01956035364 No Longer Active Efren flores TUBE OPERATOR Active FLAGYL 500 MG ORAL TABLET 1 tablet by mouth bid 04/13 METRONIDAZOLE 89611382769 No Longer Active Checo Conklin MD Acti ve MAGNESIUM CITRATE 1.745 GM/30ML ORAL SOLUTION 150ml po BID P RN Constipation MAGNESIUM CITRATE 75292838557 No Longer Active Checo Conklin MD Active BACTROBAN 2 % EXTERNAL CREAM Apply to affected area BID for up to 10 days MUPIROCIN CALCIUM 69498986703 No Longer Active Checo Conklin MD Active HYDROCODONE-ACETAMINOPHEN 5-325 MG ORAL TABLET 1 tab b y mouth every 6 hours as needed HYDROCODONE-ACETAMINOPHEN 88769675285 No Longer Active Checo Conklin MD Active IBUPROFEN 800 MG ORAL TABLET 1 tab every 8 hours with food 03/20 IBUPROFEN 17573470636 No Longer Active Cheoc Conklin MD Active DIFLUCAN 150 MG ORAL TABLET 1 tablet by mouth if neede d, hold until symptoms start FLUCONAZOLE 14291290727 No Longer Active Checo Conklin MD Active BACTRIM DS 800-160 MG ORAL TABLET 1 tab by mouth twice daily 201 11/23/03 TRIMETHOPRIM-SULFAMETHOXAZOLE 65590299957 No Longer Active Bonnie Méndez LPN Active HYDROCODONE-ACETAMINOPHEN 5-325 MG ORAL TABLET 0.5 to 1 tab by mouth every 6 hours as needed HYDROCODONE-ACETAMINOPHEN 21743494258 No Longer Active Checo Conklin MD Active ONDANSETRON 8 MG ORAL TABLET DISINTEGRATING place one tablet on tongue and allow to dissolve every 6 hours as needed for vomitting ONDANSETRON 51485909985 No Longer Active Checo Conklin MD Activ e COMPRO 25 MG RECTAL SUPPOSITORY insert or apply one garza ppository rectally as directed every 12 hours as needed for nausea PROCHLORPERAZINE 93732564872 No Longer Active Checo Conklin MD A ctive SUMATRIPTAN SUCCINATE 100 MG ORAL TABLET Take one PRN for migran e SUMATRIPTAN SUCCINATE 64849274389 No Longer Active Checo Conklin MD Active TRAVEL SICKNESS 25 MG ORAL TABLET CHEWABLE chew and sw allow one tablet every 6 hours as needed MECLIZINE HCL 97247988607 No Longer A ctive Checo Conklin MD Active BUPROPION HCL ER (SR) 100 MG ORAL TABLET EXTENDED RELE ASE 12 HOUR take one tablet by mouth one time daily for one week then take 1 two times daily BUPROPION HCL 10831272380 No Longer Active Checo gallagher MD Active TERBINAFINE HCL 250 MG ORAL TABLET take one table PO one time da moises TERBINAFINE HCL 72086386253 No Longer Active Checo Conklin MD Active METOCLOPRAMIDE HCL 10 MG ORAL TABLET take one PO tid PRN nausea METOCLOPRAMIDE HCL 19125808275 No Longer Active Checo Conklin MD Active DICLOFENAC SODIUM 75 MG ORAL TABLET DELAYED RELEASE 1 tablet by mouth twice daily PRN Knee pain DICLOFENAC SODIUM 25054635540 No Longer Active Checo Conklin MD Active LAMISIL 250 MG ORAL TABLET 1 po qd TERBINAFI NE HCL 01989998603 No Longer Active Checo Conklin MD Active REGLAN 10 MG ORAL TABLET 1 po TID PRN Nausea 3 METOCLOPRAMIDE HCL 07419473997 No Longer Active Checo Conklin MD Active CELEXA 20 MG ORAL TABLET 1 tablet by mouth daily 09/26 CITALOPRAM HYDROBROMIDE 90443594643 No Longer Active Checo Conklin MD Active AZITHROMYCIN 250 MG ORAL TABLET 2 po qd x 1 day, then 1 po q d x 4 days AZITHROMYCIN 46651538218 No Longer Active Checo Ortiz MD Active HYDROCODONE-ACETAMINOPHEN 5-325 MG ORAL TABLET 1 po q 6hr PRN Pa in HYDROCODONE-ACETAMINOPHEN 97784985861 No Longer Active Lenora Conklin MD Active PHENAZOPYRIDINE HCL 200 MG ORAL TABLET take 1 tab po TID for bladder pain PHENAZOPYRIDINE HCL 78816650670 No Longer Active Jeo Conklin MD Active CIPRO 500 MG ORAL TABLET 1 tablet by mouth twice daily CIPROFLOXACIN HCL 69417992503 No Longer Active Dangelo Rangel MD Active HYDROCODONE-ACETAMINOPHEN 5-325 MG ORAL TABLET 1/2 to 1 po q 4 hours prn cough HYDROCODONE-ACETAMINOPHEN 25298039920 No Longer Activ e Dangelo Rangel MD Active BACTRIM DS 800-160 MG ORAL TABLET 1 po BID x 7 days 29/04/10 SULFAMETHOXAZOLE-TRIMETHOPRIM 16995219523 No Longer Active Checo Conklin MD Active PREDNISONE 20 MG ORAL TABLET 2 tabs daily for 3 days, 1 tab daily for 3 days, 1/2 tab daily for 2 days PREDNISONE 24116447407 No Longer Active Checo Conklin MD Active TRIAMCINOLONE ACETONIDE 0.1 % EXTERNAL OINTMENT Apply to affected areas TID for up to 2 weeks TRIAMCINOLONE ACETONIDE 48427991878 No Longer Active Checo Conklin MD Active CEFDINIR 300 MG ORAL CAPSULE by mouth twice a day 2013 CEFDINIR 72980113417 No Longer Active Dangelo Rangel MD Acti ve BUPROPION HCL ER (SMOKING DET) 150 MG ORAL TABLET EXTE NDED RELEASE 12 HOUR 1 a day for 1 week then 1 twice a day BUPROPION HCL (SMOKING DETER) 65626732505 No Longer Active Checo Conklin MD Active CHANTIX STARTING MONTH KARTHIK 0.5 MG X 11 & 1 MG X 42 ORA L TABLET 0.5mg daily for 3 days, then 0.5mg BID for 4 days, then 1mg BID VARENICLINE TARTRATE 44520714736 No Longer Active Checo Conklin MD Activ e CONCERTA 18 MG ORAL TABLET EXTENDED RELEASE 1 po q a.m. METHYLPHENIDATE HCL 42146123252 No Longer Active Checo Conklin MD Active TRAZODONE HCL 100 MG ORAL TABLET 0.5 to 1 po qHS PRN Insomnia 20 30/07/08 TRAZODONE HCL 34064691438 No Longer Active Checo Conklin MD Active FIORICET 325-50-40 MG TAB 1 tablet by mouth four times daily as needed [id number] 17938116178 No Longer Active Checo Conklin MD Active PHENERGAN CREAM* 25mg applied to wrist q6hr PRN Nausea PHENERGAN CREAM* No Longer Active Checo Conklin MD A ctive FLONASE 50 MCG/ACT NASAL SUSPENSION 1 spray each nostril am and hs FLUTICASONE PROPIONATE 72694232852 No Longer Active Checo Conklin MD Active ANTIPYRINE-BENZOCAINE 5.4-1.4 % OTIC SOLUTION 1-2 drops in affec yohannes ear BENZOCAINE-ANTIPYRINE 05263949720 No Longer Active Checo Conklin MD Active CEFDINIR 300 MG ORAL CAPSULE 1 po bid CEFDINIR 69691998648 No Longer Active Checo Conklin MD Active PREDNISONE 20 MG ORAL TABLET 2 tabs daily for 3 days, 1 tab daily for 3 days, 1/2 tab daily for 2 days PREDNISONE 92456976835 No Longer Active Checo Conklin MD Active AZITHROMYCIN 250 MG ORAL TABLET 2 po qd x 1 day, then 1 po q d x 4 days AZITHROMYCIN 47180698059 No Longer Active Checo Ortiz MD Active PREDNISONE 20 MG ORAL TABLET 2 tabs daily for 3 days, 1 tab daily for 3 days, 1/2 tab daily for 2 days PREDNISONE 52196538429 No Longer Active Checo Conklin MD Active ZITHROMAX Z-KARTHIK 250 MG ORAL TABLET 2 today, then 1 daily for 4 d ays AZITHROMYCIN 74719599952 No Longer Active Paul Hamlin MD Active FOCALIN XR 10 MG ORAL CAPSULE EXTENDED RELEASE 24 HOUR 1 po q a. m. DEXMETHYLPHENIDATE HCL 92589841304 No Longer Active Paul Hamlin MD Active PERCOCET 10-325 MG ORAL TABLET 1 tablet every 6 hours as needed for pain OXYCODONE-ACETAMINOPHEN 59370425730 No Longer Active Paul Hamlin MD Active LORTAB 5-500 MG ORAL TABLET 1/2 to 1 tablet by mouth e very 4 hours as needed for pain HYDROCODONE-ACETAMINOPHEN 07872485704 No Longer Active Checo Conklin MD Active FOCALIN XR 15 MG ORAL CAPSULE EXTENDED RELEASE 24 HOUR 1 po q a. m. DEXMETHYLPHENIDATE HCL 78447036377 No Longer Active Checo Conklin MD Active ZOFRAN ODT 4 MG ORAL TABLET DISINTEGRATING 1 po q6hr PRN Nausea ONDANSETRON 23017405129 No Longer Active Checo Conklin MD Active PERCOCET 5-325 MG ORAL TABLET 1 tablet by mouth every 6 hour s as needed OXYCODONE-ACETAMINOPHEN 36764047442 No Longer Active Checo Conklin MD Active PYRIDIUM 200 MG ORAL TABLET take 1 tab po TID prn urinary pain. PHENAZOPYRIDINE HCL 10474205661 No Longer Active Checo Joshua Active FLUCONAZOLE 150 MG ORAL TABLET take 1 tab po qday once FLUCONAZOLE 73918854666 No Longer Active Dangelo Rangel MD Acti ve CIPRO 500 MG ORAL TABLET 1 tablet by mouth twice daily CIPROFLOXACIN HCL 37908797304 No Longer Active Dangelo Rangel MD Active PYRIDIUM 200 MG ORAL TABLET take 1 tab po TID prn urinary pain. PYRIDIUM 200 MG ORAL TABLET 1832905 PHENAZOPYRIDINE HCL Inactive PERCOCET 5-325 MG ORAL TABLET 1 tablet by mouth every 6 hour s as needed PERCOCET 5-325 MG ORAL TABLET 5685165 OXYCODONE-ACETAMINOPHEN Inactive ZOFRAN ODT 4 MG ORAL [...] for pain PERCOCET 10-325 MG ORAL TABLET 2133984 OXYCODONE-ACETAMI NOPHEN Inactive FOCALIN XR 10 MG ORAL CAPSULE EXTENDED RELEASE 24 HOUR 1 po q a. m. FOCALIN XR 10 MG ORAL CAPSULE EXTENDED RELEASE 24 HOUR DEXMETHYLPHENIDATE HCL Inactive CEFDINIR 300 MG ORAL CAPSULE 1 po bid CEFDINI R 300 MG ORAL CAPSULE 553778 CEFDINIR Inactive ANTIPYRINE-BENZOCAINE 5.4-1.4 % OTIC SOLUTION [...] 30/07/08 TRAZODONE HCL 100 MG ORAL TABLET 666883 TRAZODONE HCL Inactive CONCERTA 18 MG ORAL [...] cough HYDROCODONE-ACETAMINOPHEN 5-325 MG ORAL TABLET 8 05964 HYDROCODONE-ACETAMINOPHEN Inactive PHENAZOPYRIDINE HCL 200 MG ORAL TABLET take 1 tab po TID for bladder pain PHENAZOPYRIDINE HCL 200 MG ORAL TABLET 4837410 PHENAZOPYRIDINE HCL Inactive HYDROCODONE-ACETAMINOPHEN 5-325 MG ORAL TABLET 1 po q 6hr PRN Pa in HYDROCODONE-ACETAMINOPHEN 5-325 MG ORAL TABLET 549298 HYDROCODONE-ACETAMINOPHEN Inactive CELEXA 20 MG ORAL TABLET 1 tablet by mouth daily 09/26 CELEXA 20 MG ORAL TABLET 121563 CITALOPRAM HYDROBROMIDE Inactive REGLAN 10 MG ORAL TABLET 1 po TID PRN Nausea 3 REGLAN 10 MG ORAL TABLET 191667 METOCLOPRAMIDE HCL Inactive LAMISIL 250 MG ORAL TABLET 1 po qd L AMISIL 250 MG ORAL TABLET 988671 TERBINAFINE HCL Inactive DICLOFENAC SODIUM 75 MG ORAL TABLET DELAYED RELEASE 1 tablet by mouth twice daily PRN Knee pain DICLOFENAC SODIUM 75 MG ORAL TABLET DELAYED RELEASE 945808 DICLOFENAC SODIUM Inactive METOCLOPRAMIDE HCL 10 MG ORAL TABLET take one PO tid PRN nausea METOCLOPRAMIDE HCL 10 MG ORAL TABLET 006117 METOCLOPRAM ZACH HCL Inactive TERBINAFINE HCL 250 MG ORAL TABLET take one table PO one time da moises TERBINAFINE HCL 250 MG ORAL TABLET 857466 TERBINAFINE H CL Inactive BUPROPION HCL ER [...] SICKNESS 25 M G ORAL TABLET CHEWABLE 127687 MECLIZINE HCL Inactive SUMATRIPTAN SUCCINATE 100 MG ORAL TABLET Take one PRN for migran e SUMATRIPTAN SUCCINATE 100 MG ORAL TABLET 810021 SUMATRIPTAN SUCCINATE Inactive COMPRO 25 MG RECTAL SUPPOSITORY insert or apply one garza ppository rectally as directed every 12 hours as needed for nausea COMPRO 25 MG RECTAL SUPPOSITORY 538371 PROCHLORPERAZINE Inactive ONDANSETRON 8 MG ORAL TABLET DISINTEGRATING place one tablet on tongue and allow to dissolve every 6 hours as needed for vomitting ONDANSETRON 8 MG ORAL TABLET DISINTEGRATING 678831 ONDANSETRON Inactive HYDROCODONE-ACETAMINOPHEN 5-325 MG ORAL TABLET 0.5 to 1 tab by mouth every 6 hours as needed HYDROCODONE-ACETAMIN OPHEN 5-325 MG ORAL TABLET 125154 HYDROCODONE-ACETAMINOPHEN Inactive BACTRIM DS 800-160 MG ORAL TABLET 1 tab by mouth twice daily 201 11/23/03 BACTRIM DS 800-160 MG ORAL TABLET 293010 TRIMETHOPRIM-SULFAMETHOXAZOLE Inactive DIFLUCAN 150 MG ORAL TABLET [...] as needed HYDROCODONE-ACETAMINOPHEN 5-325 MG ORAL TABLET 151616 HYDROCODONE-ACETAMINOPHEN Inactive BACTROBAN 2 % EXTERNAL CREAM Apply to affected area BID for up to 10 days BACTROBAN 2 % EXTERNAL CREAM MUPIROCIN CA LCIUM Inactive MAGNESIUM CITRATE 1.745 GM/30ML ORAL SOLUTION 150ml po BID P RN Constipation MAGNESIUM CITRATE 1.745 GM/30ML ORAL SOLUTION 10 51968 MAGNESIUM CITRATE Inactive DIFLUCAN 150 MG ORAL TABLET 1 tablet by mouth qod 2015 DIFLUCAN 150 MG ORAL TABLET 870302 FLUCONAZOLE Inactive BACTRIM DS 800-160 MG ORAL TABLET 1 tab by mouth twice daily 201 12/19/26 BACTRIM DS 800-160 MG ORAL TABLET 291654 TRIMETHOPRIM-SULFAMETHOXAZOLE Inactive CLARITIN 10 MG ORAL TABLET 1 tablet by mouth daily as needed for allergies CLARITIN 10 MG ORAL TABLET 719336 LORATADINE I nactive FLUTICASONE PROPIONATE 50 MCG/ACT NASAL SUSPENSION 2 s prays/nostril qd PRN Congestion/Allergies FLUTICASONE PROPION ATE 50 MCG/ACT NASAL SUSPENSION 8292359 FLUTICASONE PROPIONATE Inactive MIRALAX ORAL POWDER 8.5 to 17g po qd PRN Constipation MIRALAX ORAL POWDER 000861 POLYETHYLENE GLYCOL 3350 Inactive IBUPROFEN 800 MG ORAL TABLET 1 tab every 8 hours as needed for p ain IBUPROFEN 800 MG ORAL TABLET 895110 IBUPROFEN [place] ctive HYDROCHLOROTHIAZIDE 12.5 MG ORAL CAPSULE 1 po qd PRN Edema 01/10 HYDROCHLOROTHIAZIDE 12.5 MG ORAL CAPSULE 498480 HYDROCH LOROTHIAZIDE Inactive KLOR-CON 10 10 MEQ ORAL TABLET EXTENDED RELEASE 1 daily with furosemide KLOR-CON 10 10 MEQ ORAL TABLET EXTENDED RELEASE POTASSIUM CHLORIDE Inactive FUROSEMIDE 20 MG ORAL TABLET 1 daily for swelling 2018 FUROSEMIDE 20 MG ORAL TABLET 719322 FUROSEMIDE Inactive SIMVASTATIN 20 MG ORAL TABLET 1 po qd SIMVASTATIN 20 MG ORAL TABLET 347834 SIMVASTATIN Inactive FOCALIN XR 10 MG ORAL CAPSULE EXTENDED RELEASE 24 HOUR 1 po q a. m. FOCALIN XR 10 MG ORAL CAPSULE EXTENDED RELEASE 24 HOUR DEXMETHYLPHENIDATE HCL Inactive PAROXETINE HCL 40 MG ORAL TABLET 1 po qd PAROXETINE HCL 40 MG ORAL TABLET 5797907 PAROXETINE HCL Inactive XANAX 0.5 MG ORAL TABLET 1 po BID PRN anxiety XANAX 0.5 MG ORAL TABLET 214864 ALPRAZOLAM Inactive AMBIEN 5 MG ORAL TABLET 1 po qHS PRN Insomnia AMBIEN 5 MG ORAL TABLET 348195 ZOLPIDEM TARTRATE Inactive PROZAC 10 MG ORAL CAPSULE 1 PO Daily MI OZAC 10 MG ORAL CAPSULE 091836 FLUOXETINE HCL Inactive CIPRO 500 MG ORAL TABLET 1 tablet by mouth twice daily CIPRO 500 MG ORAL TABLET 294092 CIPROFLOXACIN HCL Inactive FLUCONAZOLE 150 MG ORAL TABLET take 1 tab po qday once FLUCONAZOLE 150 MG ORAL TABLET 619183 FLUCONAZOLE Inactive ZITHROMAX Z-KARTHIK 250 MG ORAL TABLET 2 today, then 1 daily for 4 d ays ZITHROMAX Z-KARTHIK 250 MG ORAL TABLET 271661 AZITHROMYCIN Inactive PREDNISONE 20 MG ORAL TABLET 2 tabs daily for 3 days, 1 tab daily for 3 days, 1/2 tab daily for 2 days PREDNISONE 20 MG ORAL T ABLET 814469 PREDNISONE Inactive AZITHROMYCIN 250 MG ORAL TABLET 2 po qd x 1 day, then 1 po q d x 4 days AZITHROMYCIN 250 MG ORAL TABLET 525118 AZITHROMY SPARKLE Inactive PREDNISONE 20 MG ORAL TABLET 2 tabs daily for 3 days, 1 tab daily for 3 days, 1/2 tab daily for 2 days PREDNISONE 20 MG ORAL TABLET 582088 PREDNISONE Inactive CEFDINIR 300 MG ORAL CAPSULE by mouth twice a day 2013 CEFDINIR 300 MG ORAL CAPSULE 406184 CEFDINIR Inactive TRIAMCINOLONE ACETONIDE 0.1 % EXTERNAL OINTMENT Apply to affected areas TID for up to 2 weeks TRIAMCINOLONE ACETON ZACH 0.1 % EXTERNAL OINTMENT 7219015 TRIAMCINOLONE ACETONIDE Inactive PREDNISONE 20 MG ORAL TABLET 2 tabs daily for 3 days, 1 tab daily for 3 days, 1/2 tab daily for 2 days PREDNISONE 20 MG ORAL T ABLET 550096 PREDNISONE Inactive BACTRIM DS 800-160 MG ORAL TABLET 1 po BID x 7 days 29/04/10 BACTRIM DS 800-160 MG ORAL TABLET 819108 SULFAMETHOXAZOLE-TRIMETHOP RIM Inactive CIPRO 500 MG ORAL TABLET 1 tablet by mouth twice daily CIPRO 500 MG ORAL TABLET 869616 CIPROFLOXACIN HCL Inactive AZITHROMYCIN 250 MG ORAL TABLET 2 po qd x 1 day, then 1 po q d x 4 days AZITHROMYCIN 250 MG ORAL TABLET 327736 AZITHROMY SPARKLE Inactive FLAGYL 500 MG ORAL TABLET 1 tablet by mouth bid 04/13 FLAGYL 500 MG ORAL TABLET 046562 METRONIDAZOLE Inactive AZITHROMYCIN 250 MG ORAL TABLET 2 po qd x 1 day, then 1 po q d x 4 days AZITHROMYCIN 250 MG ORAL TABLET 989597 AZITHROMY SPARKLE Inactive AMOXICILLIN 500 MG ORAL CAPSULE 2 po BID x 10 days 01/15/27 AMOXICILLIN 500 MG ORAL CAPSULE 490662 AMOXICILLIN Inactive AMOXICILLIN 500 MG ORAL CAPSULE 2 po BID x 14 days for [facility]. Pylori AMOXICILLIN 500 MG ORAL CAPSULE 241520 AMOXICILLIN Inactive CLARITHROMYCIN 500 MG ORAL TABLET 1 tab po BID x 14 days CLARITHROMYCIN 500 MG ORAL TABLET 273678 CLARITHROMYCIN Inacti ve FLAGYL 500 MG ORAL TABLET 1 tablet by mouth bid 08/29 FLAGYL 500 MG ORAL TABLET 673999 METRONIDAZOLE Inactive PROTONIX 40 MG ORAL TABLET DELAYED RELEASE 1 pill by m outh daily, for acid reflux PROTONIX 40 MG ORAL TABLET DELAYED RELEAS E 940761 PANTOPRAZOLE SODIUM Inactive Immunizations Vaccine Administration Date [...] Panel - Chemistry sodium, serum 142 mmol/L 152-956 1918/07/22 carbon dioxide, venous blood 26.3 mmol/L 21.0-32 [...] 0.80 mg/dL 0.00-1.00 cholesterol, serum 172 mg/dL 627-273 0255/07/22 triglyceride, serum, fasting 222 mg/dL 30-200 HDL [...] 0-29 Encounters Code Encounter Date Provider Facility CPT-75486 Level 3 Est. Patient 06:02:19 CDT Radha Dic k TUBE OPERATOR-C [facility] CPT-96657 Level 3 Est. Patient 09:11:53 CDT Ardha Dic k TUBE OPERATOR-C [facility] CPT-26620 Level 3 Est. Patient 16:46:51 CDT Thomas reynolds DO [facility] CPT-98691 [id number] Vst-Est Level III 14:40:49 CDT Paul Hamlin MD [facility] CPT-19876 Level 4 Est. Patient 11:08:43 CDT Checo Conklin MD [facility] CPT-39966 [id number] Vst-Est Level III 09:37:41 CDT Dangelo Rangel MD [facility] CPT-33954 Level 4 Est. Patient 08:57:51 SUGAR SAMPLER Checo Conklin MD [facility] CPT-33867 Level 3 Est. Patient 11:24:55 SUGAR SAMPLER Efren almendarez [facility] CPT-10499 Level 3 Est. Patient 13:05:44 CDT Paul Hamlin MD [facility] CPT-74577 Level 3 Est. Patient 11:29:55 CDT Checo Conklin MD [facility] CPT-00302 Level 4 Est. Patient 11:08:12 SUGAR SAMPLER Checo Conklin MD [facility] CPT-54500 Level 4 Est. Patient 16:06:48 SUGAR SAMPLER Checo Conklin MD [facility] CPT-34067 Level 3 Est. Patient 09:11:49 CDT Efren almendarez [facility] CPT-60690 Level 2 Est. Patient 19:53:27 CDT Tanner hill MD [facility] CPT-44462 Level 3 Est. Patient 09:15:34 CDT Efren almendarez [facility] CPT-80873 Level 3 Est. Patient 11:28:51 SUGAR SAMPLER Efren almendarez [facility] CPT-50934 Level 4 Est. Patient 13:55:46 SUGAR SAMPLER Checo Conklin MD [facility] CPT-14425 Level 4 Est. Patient 17:10:53 CDT Checo Conklin MD [facility] CPT-52125 Level 3 Est. Patient 15:56:22 CDT Checo Conklin MD [facility] CPT-89282 Level 3 Est. Patient 15:29:07 CDT Checo Conklin MD [facility] CPT-93200 Level 3 Est. Patient 14:38:41 CDT Checo Conklin MD [facility] CPT-59819 Level 3 Est. Patient 15:22:03 SUGAR SAMPLER Thomas reynolds DO [facility] CPT-34464 Level 3 Est. Patient 13:34:17 SUGAR SAMPLER Checo Conklin MD [facility] CPT-74081 Level 3 Est. Patient 12:29:32 CDT Dangelo arroyo MD [facility] CPT-32747 Level 3 Est. Patient 16:53:02 CDT Checo Conklin MD [facility] CPT-31368 Level 3 Est. Patient 16:37:13 CDT Checo Conklin MD [facility] CPT-68263 Level 3 Est. Patient 16:16:59 CDT Paul Hamlin MD [facility] CPT-64999 Level 3 Est. Patient 14:20:13 CDT Dangelo arroyo MD [facility] CPT-33076 Level 4 Est. Patient 11:29:33 CDT Checo Conklin MD [facility] CPT-44771 Level 3 Est. Patient 17:08:31 CDT Checo Conklin MD [facility] CPT-85183 Level 3 Est. Patient 16:50:42 SUGAR SAMPLER Checo Conklin MD [facility] CPT-25562 Level 4 Est. Patient 09:26:08 SUGAR SAMPLER Checo Conklin MD [facility] CPT-29846 Level 3 Est. Patient 11:37:10 CDT Checo Conklin MD [facility] CPT-32265 Level 4 Est. Patient 14:07:38 CDT Checo Conklin MD [facility] CPT-03249 Level 3 Est. Patient 09:54:41 CDT Checo Conklin MD [facility] CPT-95329 Level 3 Est. Patient 11:10:54 CDT Paul Hamlin MD [facility] CPT-17639 Level 3 Est. Patient 14:16:56 SUGAR SAMPLER Checo Conklin MD [facility] CPT-08912 Level 3 Est. Patient 11:04:11 SUGAR SAMPLER Checo Conklin MD [facility] CPT-85083 Level 3 Est. Patient 17:09:26 CDT Dangelo arroyo MD [facility] CPT-93357 Level 3 Est. Patient 16:54:37 CDT Checo Conklin MD [facility] Procedures Code Procedure Name Date Entry Date Standard Desc ription CPT-57134 Abx/Therapy Injection 09:52:15 CDT CPT-90286 Abx/Therapy Injection 18:17:48 CDT CPT-J2550 Phenergan 25 mg (Promethazine) 16:48:23 CDT CPT-J1885 Toradol 60 mg 16:48:23 CDT CPT-26283 Wrist, right, comp 3V - XRAY USE ONLY 09:24:31 CDT CPT-64246 Abd compl w upright - XRAY USE ONLY 1 1:36:54 SUGAR SAMPLER CPT-41505 UA w micro - LAB USE ONLY 17:06:46 CDT 2015 CPT-22987 BHCG Qual - LAB USE ONLY 17:06:46 CDT 05/06 CPT-53849 CMP - LAB USE ONLY 17:06:46 CDT CPT-21422 CBC with Diff - LAB USE ONLY 17:06:45 CDT 2 CPT-62933 Venipuncture Draw Fee 17:06:45 CDT CPT-LR Lesion Removal 19:53:27 CDT CPT-OV Office Visit 11:31:28 CDT CPT-10115 Tubersol 09:39:29 CDT CPT-J2550 Phenergan 25 mg (Promethazine) 13:59:02 SUGAR SAMPLER CPT-J1885 Toradol 60 mg (Ketorolac) 13:59:02 SUGAR SAMPLER 2012
--- OUTSIDE RECORDS SUMMARY | 2019-09-29 01:08 | XMS REPORT | Clinical Summary ---
Author Author Admin, Bethany [facility] [employer] Address Unknown Phone Unavailable Allergies, Adverse Reactions, [...] Index 27.0-27.9 Adult Resolved 2018 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 HEEL COVERER-C Body Mass Index 27.0-27.9, adult Body Mass [...] 2 weeks if needed CITALOPRAM HYDRO BROMIDE 52055126279 Active 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 APRN-C Active PROZAC 10 MG ORAL CAPSULE 1 PO Daily FLUOXETINE HCL 09715819995 No Longer Active 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 APRN-C Active VYVANSE 30 MG ORAL CAPSULE 1 PO daily LISDEXAMF ETAMINE DIMESYLATE 05582597799 Active 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 HEEL COVERER-C Active XANAX 0.5 MG ORAL TABLET 1 tablet PO BID; PRN A LPRAZOLAM 09781710237 Active Radhasantos Whitaker HEEL COVERER-C Active SIMVASTATIN 20 MG ORAL TABLET 1 tablet PO daily SI MVASTATIN 91845435209 Active Radhasantos Whitaker HEEL COVERER-C Active IBUPROFEN 800 MG ORAL TABLET 1 tablet PO q8hr PRN IBUPROFEN 68304879487 Active Radhasantos Whitaker HEEL COVERER-C Active AMBIEN 5 MG ORAL TABLET 1 tablet PO once daily; PRN ZOLPIDEM TARTRATE 42641467929 Active 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 HEEL COVERER-C Active ALBUTEROL SULFATE HFA 108 (90 BASE) MCG/ACT INHALATION AEROSOL SOLUTION 2 puffs, INH, q4hr PRN ALBUTEROL SULFATE 10813857155 Active Radha Sherman A PRN-C Active AMBIEN 5 MG ORAL TABLET 1 po qHS PRN Insomnia ZOLPIDEM TARTRATE 03379493341 No Longer Active 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 APRN-C Active XANAX 0.5 MG ORAL TABLET 1 po BID PRN anxiety A LPRAZOLAM 42559034135 No Longer Active 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 HEEL COVERER-C Active PAROXETINE HCL 40 MG ORAL TABLET 1 po qd PAR OXETINE HCL 16704556052 No Longer Active 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 HEEL COVERER-C Active FOCALIN XR 10 MG ORAL CAPSULE EXTENDED RELEASE 24 HOUR 1 po q a. m. DEXMETHYLPHENIDATE HCL 16868289615 No Longer Active Radha Low HEEL COVERER-C Active SIMVASTATIN 20 MG ORAL TABLET 1 po qd SIMVAS TATIN 69513303982 No Longer Active 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 HEEL COVERER-C Active FUROSEMIDE 20 MG ORAL TABLET 1 daily for swelling 2018 FUROSEMIDE 02158428566 No Longer Active 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 HEEL COVERER-C Active KLOR-CON 10 10 MEQ ORAL TABLET EXTENDED RELEASE 1 daily with furosemide POTASSIUM CHLORIDE 26247265148 No Longer Active 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 HEEL COVERER-C Active HYDROCHLOROTHIAZIDE 12.5 MG ORAL CAPSULE 1 po qd PRN Edema 01/10 HYDROCHLOROTHIAZIDE 56757814764 No Longer Active Paul Hamlin MD Active IBUPROFEN 800 MG ORAL TABLET 1 tab every 8 hours as needed for p ain IBUPROFEN 13415620842 No Longer Active Paul Hamlin MD Active MIRALAX ORAL POWDER 8.5 to 17g po qd PRN Constipation POLYETHYLENE GLYCOL 3350 68930916752 No Longer Active Checo Conklin MD Active PROTONIX 40 MG ORAL TABLET DELAYED RELEASE 1 pill by m [facility] daily, for acid reflux PANTOPRAZOLE SODIUM 42775799592 No Longer Activ e Corry Méndez LPN Active FLAGYL 500 MG ORAL TABLET 1 tablet by mouth bid 08/29 METRONIDAZOLE 55851226576 No Longer Active Corry Méndez LPN Active CLARITHROMYCIN 500 MG ORAL TABLET 1 tab po BID x 14 days CLARITHROMYCIN 75909103425 No Longer Active Corry Méndez LPN Active AMOXICILLIN 500 MG ORAL CAPSULE 2 po BID x 14 days for [facility] Pyl[facility] AMOXICILLIN 85948011526 No Longer Active Corry Méndez LPN Active FLUTICASONE PROPIONATE 50 MCG/ACT NASAL SUSPENSION 2 s prays/nostril qd PRN Congestion/Allergies FLUTICASONE PROPIONATE 9983697330 9 No Longer Active Checo Conklin MD Active AMOXICILLIN 500 MG ORAL CAPSULE 2 po BID x 10 days 201 01/15/27 AMOXICILLIN 02664595286 No Longer Active Checo Conklin MD Activ e CLARITIN 10 MG ORAL TABLET 1 tablet by mouth daily as needed for allergies LORATADINE 54844011304 No Longer Active Checo Ortiz MD Active BACTRIM DS 800-160 MG ORAL TABLET 1 tab by mouth twice daily 201 12/19/26 TRIMETHOPRIM-SULFAMETHOXAZOLE 04259473582 No Longer Active Ragini Carrillo MD Active DIFLUCAN 150 MG ORAL TABLET 1 tablet by mouth qod 2015 FLUCONAZOLE 12462841659 No Longer Active Efren Medel HEEL COVERER Act mike AZITHROMYCIN 250 MG ORAL TABLET 2 po qd x 1 day, then 1 po q d x 4 days AZITHROMYCIN 40082283341 No Longer Active Efren flores HEEL COVERER Active FLAGYL 500 MG ORAL TABLET 1 tablet by mouth bid 04/13 METRONIDAZOLE 89346514011 No Longer Active Checo Conklin MD Acti ve MAGNESIUM CITRATE 1.745 GM/30ML ORAL SOLUTION 150ml po BID P RN Constipation MAGNESIUM CITRATE 40830277845 No Longer Active Checo Conklin MD Active BACTROBAN 2 % EXTERNAL CREAM Apply to affected area BID for up to 10 days MUPIROCIN CALCIUM 45295168232 No Longer Active Checo Conklin MD Active HYDROCODONE-ACETAMINOPHEN 5-325 MG ORAL TABLET 1 tab b y mouth every 6 hours as needed HYDROCODONE-ACETAMINOPHEN 56628264740 No Longer Active Checo Conklin MD Active IBUPROFEN 800 MG ORAL TABLET 1 tab every 8 hours with food 03/20 IBUPROFEN 58464983857 No Longer Active Checo Conklin MD Active DIFLUCAN 150 MG ORAL TABLET 1 tablet by mouth if neede d, hold until symptoms start FLUCONAZOLE 72027506263 No Longer Active Checo Conklin MD Active BACTRIM DS 800-160 MG ORAL TABLET 1 tab by mouth twice daily 201 11/23/03 TRIMETHOPRIM-SULFAMETHOXAZOLE 59095256918 No Longer Active Bonnie Méndez LPN Active HYDROCODONE-ACETAMINOPHEN 5-325 MG ORAL TABLET 0.5 to 1 tab by mouth every 6 hours as needed HYDROCODONE-ACETAMINOPHEN 77365091539 No Longer Active Checo Conklin MD Active ONDANSETRON 8 MG ORAL TABLET DISINTEGRATING place one tablet on tongue and allow to dissolve every 6 hours as needed for vomitting ONDANSETRON 72675952094 No Longer Active Checo Conklin MD Activ e COMPRO 25 MG RECTAL SUPPOSITORY insert or apply one garza ppository rectally as directed every 12 hours as needed for nausea PROCHLORPERAZINE 77332384248 No Longer Active Checo Conklin MD A ctive SUMATRIPTAN SUCCINATE 100 MG ORAL TABLET Take one PRN for migran e SUMATRIPTAN SUCCINATE 27044189028 No Longer Active Checo Conklin MD Active TRAVEL SICKNESS 25 MG ORAL TABLET CHEWABLE chew and sw allow one tablet every 6 hours as needed MECLIZINE HCL 17876300578 No Longer A ctive Checo Conklin MD Active BUPROPION HCL ER (SR) 100 MG ORAL TABLET EXTENDED RELE ASE 12 HOUR take one tablet by mouth one time daily for one week then take 1 two times daily BUPROPION HCL 73967596176 No Longer Active Checo gallagher MD Active TERBINAFINE HCL 250 MG ORAL TABLET take one table PO one time da moises TERBINAFINE HCL 01215346034 No Longer Active Checo Conklin MD Active METOCLOPRAMIDE HCL 10 MG ORAL TABLET take one PO tid PRN nausea METOCLOPRAMIDE HCL 92060606239 No Longer Active Checo Conklin MD Active DICLOFENAC SODIUM 75 MG ORAL TABLET DELAYED RELEASE 1 tablet by mouth twice daily PRN Knee pain DICLOFENAC SODIUM 17922489100 No Longer Active Checo Conklin MD Active LAMISIL 250 MG ORAL TABLET 1 po qd TERBINAFI NE HCL 85854075512 No Longer Active Checo Conklin MD Active REGLAN 10 MG ORAL TABLET 1 po TID PRN Nausea 3 METOCLOPRAMIDE HCL 89977674709 No Longer Active Checo Conklin MD Active CELEXA 20 MG ORAL TABLET 1 tablet by mouth daily 09/26 CITALOPRAM HYDROBROMIDE 07693720522 No Longer Active Checo Conklin MD Active AZITHROMYCIN 250 MG ORAL TABLET 2 po qd x 1 day, then 1 po q d x 4 days AZITHROMYCIN 00648706301 No Longer Active Checo Ortiz MD Active HYDROCODONE-ACETAMINOPHEN 5-325 MG ORAL TABLET 1 po q 6hr PRN Pa in HYDROCODONE-ACETAMINOPHEN 40661169899 No Longer Active Lenora Conklin MD Active PHENAZOPYRIDINE HCL 200 MG ORAL TABLET take 1 tab po TID for bladder pain PHENAZOPYRIDINE HCL 71965036423 No Longer Active Joe Conklin MD Active CIPRO 500 MG ORAL TABLET 1 tablet by mouth twice daily CIPROFLOXACIN HCL 57719081897 No Longer Active Dangelo Rangel MD Active HYDROCODONE-ACETAMINOPHEN 5-325 MG ORAL TABLET 1/2 to 1 po q 4 hours prn cough HYDROCODONE-ACETAMINOPHEN 57804040750 No Longer Activ e Dangelo Rangel MD Active BACTRIM DS 800-160 MG ORAL TABLET 1 po BID x 7 days 29/04/10 SULFAMETHOXAZOLE-TRIMETHOPRIM 04566738032 No Longer Active Checo Conklin MD Active PREDNISONE 20 MG ORAL TABLET 2 tabs daily for 3 days, 1 tab daily for 3 days, 1/2 tab daily for 2 days PREDNISONE 05030199850 No Longer Active Checo Conklin MD Active TRIAMCINOLONE ACETONIDE 0.1 % EXTERNAL OINTMENT Apply to affected areas TID for up to 2 weeks TRIAMCINOLONE ACETONIDE 83303051617 No Longer Active Checo Conklin MD Active CEFDINIR 300 MG ORAL CAPSULE by mouth twice a day 2013 CEFDINIR 46739873036 No Longer Active Dangelo Rangel MD Acti ve BUPROPION HCL ER (SMOKING DET) 150 MG ORAL TABLET EXTE NDED RELEASE 12 HOUR 1 a day for 1 week then 1 twice a day BUPROPION HCL (SMOKING DETER) 52328369660 No Longer Active Checo Conklin MD Active CHANTIX STARTING MONTH KARTHIK 0.5 MG X 11 & 1 MG X 42 ORA L TABLET 0.5mg daily for 3 days, then 0.5mg BID for 4 days, then 1mg BID VARENICLINE TARTRATE 91050534663 No Longer Active Checo Conklin MD Activ e CONCERTA 18 MG ORAL TABLET EXTENDED RELEASE 1 po q a.m. METHYLPHENIDATE HCL 01201909476 No Longer Active Checo Conklin MD Active TRAZODONE HCL 100 MG ORAL TABLET 0.5 to 1 po qHS PRN Insomnia 20 30/07/08 TRAZODONE HCL 73161286908 No Longer Active Checo Conklin MD Active FIORICET 325-50-40 MG TAB 1 tablet by mouth four times daily as needed [id number] 89416655298 No Longer Active Checo Conklin MD Active PHENERGAN CREAM* 25mg applied to wrist q6hr PRN Nausea PHENERGAN CREAM* No Longer Active Checo Conklin MD A ctive FLONASE 50 MCG/ACT NASAL SUSPENSION 1 spray each nostril am and hs FLUTICASONE PROPIONATE 51329710362 No Longer Active Checo Conklin MD Active ANTIPYRINE-BENZOCAINE 5.4-1.4 % OTIC SOLUTION 1-2 drops in affec yohannes ear BENZOCAINE-ANTIPYRINE 56488080373 No Longer Active Checo Conklin MD Active CEFDINIR 300 MG ORAL CAPSULE 1 po bid CEFDINIR 45015801333 No Longer Active Checo Conklin MD Active PREDNISONE 20 MG ORAL TABLET 2 tabs daily for 3 days, 1 tab daily for 3 days, 1/2 tab daily for 2 days PREDNISONE 39038888741 No Longer Active Checo Conklin MD Active AZITHROMYCIN 250 MG ORAL TABLET 2 po qd x 1 day, then 1 po q d x 4 days AZITHROMYCIN 95200504479 No Longer Active Checo Ortiz MD Active PREDNISONE 20 MG ORAL TABLET 2 tabs daily for 3 days, 1 tab daily for 3 days, 1/2 tab daily for 2 days PREDNISONE 14051901032 No Longer Active Checo Conklin MD Active ZITHROMAX Z-KARTHIK 250 MG ORAL TABLET 2 today, then 1 daily for 4 d ays AZITHROMYCIN 20258164885 No Longer Active Paul Hamlin MD Active FOCALIN XR 10 MG ORAL CAPSULE EXTENDED RELEASE 24 HOUR 1 po q a. m. DEXMETHYLPHENIDATE HCL 23617770325 No Longer Active Paul Hamlin MD Active PERCOCET 10-325 MG ORAL TABLET 1 tablet every 6 hours as needed for pain OXYCODONE-ACETAMINOPHEN 34726500613 No Longer Active Paul Hamlin MD Active LORTAB 5-500 MG ORAL TABLET 1/2 to 1 tablet by mouth e very 4 hours as needed for pain HYDROCODONE-ACETAMINOPHEN 73916195300 No Longer Active Checo Conklin MD Active FOCALIN XR 15 MG ORAL CAPSULE EXTENDED RELEASE 24 HOUR 1 po q a. m. DEXMETHYLPHENIDATE HCL 36619858665 No Longer Active Checo Conklin MD Active ZOFRAN ODT 4 MG ORAL TABLET DISINTEGRATING 1 po q6hr PRN Nausea ONDANSETRON 86423582182 No Longer Active Checo Conklin MD Active PERCOCET 5-325 MG ORAL TABLET 1 tablet by mouth every 6 hour s as needed OXYCODONE-ACETAMINOPHEN 50925003271 No Longer Active Checo Conklin MD Active PYRIDIUM 200 MG ORAL TABLET take 1 tab po TID prn urinary pain. PHENAZOPYRIDINE HCL 10756053210 No Longer Active Checo Joshua Active FLUCONAZOLE 150 MG ORAL TABLET take 1 tab po qday once FLUCONAZOLE 76183338369 No Longer Active Dangelo Rangel MD Acti ve CIPRO 500 MG ORAL TABLET 1 tablet by mouth twice daily CIPROFLOXACIN HCL 00103746735 No Longer Active Dangelo Rangel MD Active PYRIDIUM 200 MG ORAL TABLET take 1 tab po TID prn urinary pain. PYRIDIUM 200 MG ORAL TABLET 2157514 PHENAZOPYRIDINE HCL Inactive PERCOCET 5-325 MG ORAL TABLET 1 tablet by mouth every 6 hour s as needed PERCOCET 5-325 MG ORAL TABLET 3715989 OXYCODONE-ACETAMINOPHEN Inactive ZOFRAN ODT 4 MG ORAL [...] for pain PERCOCET 10-325 MG ORAL TABLET 2868010 OXYCODONE-ACETAMI NOPHEN Inactive FOCALIN XR 10 MG ORAL CAPSULE EXTENDED RELEASE 24 HOUR 1 po q a. m. FOCALIN XR 10 MG ORAL CAPSULE EXTENDED RELEASE 24 HOUR DEXMETHYLPHENIDATE HCL Inactive CEFDINIR 300 MG ORAL CAPSULE 1 po bid CEFDINI R 300 MG ORAL CAPSULE 118156 CEFDINIR Inactive ANTIPYRINE-BENZOCAINE 5.4-1.4 % OTIC SOLUTION [...] 30/07/08 TRAZODONE HCL 100 MG ORAL TABLET 025002 TRAZODONE HCL Inactive CONCERTA 18 MG ORAL [...] cough HYDROCODONE-ACETAMINOPHEN 5-325 MG ORAL TABLET 8 40429 HYDROCODONE-ACETAMINOPHEN Inactive PHENAZOPYRIDINE HCL 200 MG ORAL TABLET take 1 tab po TID for bladder pain PHENAZOPYRIDINE HCL 200 MG ORAL TABLET 1468902 PHENAZOPYRIDINE HCL Inactive HYDROCODONE-ACETAMINOPHEN 5-325 MG ORAL TABLET 1 po q 6hr PRN Pa in HYDROCODONE-ACETAMINOPHEN 5-325 MG ORAL TABLET 952074 HYDROCODONE-ACETAMINOPHEN Inactive CELEXA 20 MG ORAL TABLET 1 tablet by mouth daily 09/26 CELEXA 20 MG ORAL TABLET 662279 CITALOPRAM HYDROBROMIDE Inactive REGLAN 10 MG ORAL TABLET 1 po TID PRN Nausea 3 REGLAN 10 MG ORAL TABLET 085400 METOCLOPRAMIDE HCL Inactive LAMISIL 250 MG ORAL TABLET 1 po qd L AMISIL 250 MG ORAL TABLET 734206 TERBINAFINE HCL Inactive DICLOFENAC SODIUM 75 MG ORAL TABLET DELAYED RELEASE 1 tablet by mouth twice daily PRN Knee pain DICLOFENAC SODIUM 75 MG ORAL TABLET DELAYED RELEASE 616222 DICLOFENAC SODIUM Inactive METOCLOPRAMIDE HCL 10 MG ORAL TABLET take one PO tid PRN nausea METOCLOPRAMIDE HCL 10 MG ORAL TABLET 756167 METOCLOPRAM ZACH HCL Inactive TERBINAFINE HCL 250 MG ORAL TABLET take one table PO one time da moises TERBINAFINE HCL 250 MG ORAL TABLET 208756 TERBINAFINE H CL Inactive BUPROPION HCL ER [...] SICKNESS 25 M G ORAL TABLET CHEWABLE 104677 MECLIZINE HCL Inactive SUMATRIPTAN SUCCINATE 100 MG ORAL TABLET Take one PRN for migran e SUMATRIPTAN SUCCINATE 100 MG ORAL TABLET 985326 SUMATRIPTAN SUCCINATE Inactive COMPRO 25 MG RECTAL SUPPOSITORY insert or apply one garza ppository rectally as directed every 12 hours as needed for nausea COMPRO 25 MG RECTAL SUPPOSITORY 662554 PROCHLORPERAZINE Inactive ONDANSETRON 8 MG ORAL TABLET DISINTEGRATING place one tablet on tongue and allow to dissolve every 6 hours as needed for vomitting ONDANSETRON 8 MG ORAL TABLET DISINTEGRATING 349815 ONDANSETRON Inactive HYDROCODONE-ACETAMINOPHEN 5-325 MG ORAL TABLET 0.5 to 1 tab by mouth every 6 hours as needed HYDROCODONE-ACETAMIN OPHEN 5-325 MG ORAL TABLET 681438 HYDROCODONE-ACETAMINOPHEN Inactive BACTRIM DS 800-160 MG ORAL TABLET 1 tab by mouth twice daily 201 11/23/03 BACTRIM DS 800-160 MG ORAL TABLET 804146 TRIMETHOPRIM-SULFAMETHOXAZOLE Inactive DIFLUCAN 150 MG ORAL TABLET [...] as needed HYDROCODONE-ACETAMINOPHEN 5-325 MG ORAL TABLET 839567 HYDROCODONE-ACETAMINOPHEN Inactive BACTROBAN 2 % EXTERNAL CREAM Apply to affected area BID for up to 10 days BACTROBAN 2 % EXTERNAL CREAM MUPIROCIN CA LCIUM Inactive MAGNESIUM CITRATE 1.745 GM/30ML ORAL SOLUTION 150ml po BID P RN Constipation MAGNESIUM CITRATE 1.745 GM/30ML ORAL SOLUTION 10 57171 MAGNESIUM CITRATE Inactive DIFLUCAN 150 MG ORAL TABLET 1 tablet by mouth qod 2015 DIFLUCAN 150 MG ORAL TABLET 329753 FLUCONAZOLE Inactive BACTRIM DS 800-160 MG ORAL TABLET 1 tab by mouth twice daily 201 12/19/26 BACTRIM DS 800-160 MG ORAL TABLET 694689 TRIMETHOPRIM-SULFAMETHOXAZOLE Inactive CLARITIN 10 MG ORAL TABLET 1 tablet by mouth daily as needed for allergies CLARITIN 10 MG ORAL TABLET 005706 LORATADINE I nactive FLUTICASONE PROPIONATE 50 MCG/ACT NASAL SUSPENSION 2 s prays/nostril qd PRN Congestion/Allergies FLUTICASONE PROPION ATE 50 MCG/ACT NASAL SUSPENSION 1161040 FLUTICASONE PROPIONATE Inactive MIRALAX ORAL POWDER 8.5 to 17g po qd PRN Constipation MIRALAX ORAL POWDER 087487 POLYETHYLENE GLYCOL 3350 Inactive IBUPROFEN 800 MG ORAL TABLET 1 tab every 8 hours as needed for p ain IBUPROFEN 800 MG ORAL TABLET 674072 IBUPROFEN [place] ctive HYDROCHLOROTHIAZIDE 12.5 MG ORAL CAPSULE 1 po qd PRN Edema 01/10 HYDROCHLOROTHIAZIDE 12.5 MG ORAL CAPSULE 960853 HYDROCH LOROTHIAZIDE Inactive KLOR-CON 10 10 MEQ ORAL TABLET EXTENDED RELEASE 1 daily with furosemide KLOR-CON 10 10 MEQ ORAL TABLET EXTENDED RELEASE POTASSIUM CHLORIDE Inactive FUROSEMIDE 20 MG ORAL TABLET 1 daily for swelling 2018 FUROSEMIDE 20 MG ORAL TABLET 736664 FUROSEMIDE Inactive SIMVASTATIN 20 MG ORAL TABLET 1 po qd SIMVASTATIN 20 MG ORAL TABLET 325744 SIMVASTATIN Inactive FOCALIN XR 10 MG ORAL CAPSULE EXTENDED RELEASE 24 HOUR 1 po q a. m. FOCALIN XR 10 MG ORAL CAPSULE EXTENDED RELEASE 24 HOUR DEXMETHYLPHENIDATE HCL Inactive PAROXETINE HCL 40 MG ORAL TABLET 1 po qd PAROXETINE HCL 40 MG ORAL TABLET 0329116 PAROXETINE HCL Inactive XANAX 0.5 MG ORAL TABLET 1 po BID PRN anxiety XANAX 0.5 MG ORAL TABLET 545382 ALPRAZOLAM Inactive AMBIEN 5 MG ORAL TABLET 1 po qHS PRN Insomnia AMBIEN 5 MG ORAL TABLET 741133 ZOLPIDEM TARTRATE Inactive PROZAC 10 MG ORAL CAPSULE 1 PO Daily NE OZAC 10 MG ORAL CAPSULE 731599 FLUOXETINE HCL Inactive CIPRO 500 MG ORAL TABLET 1 tablet by mouth twice daily CIPRO 500 MG ORAL TABLET 120436 CIPROFLOXACIN HCL Inactive FLUCONAZOLE 150 MG ORAL TABLET take 1 tab po qday once FLUCONAZOLE 150 MG ORAL TABLET 888443 FLUCONAZOLE Inactive ZITHROMAX Z-KARTHIK 250 MG ORAL TABLET 2 today, then 1 daily for 4 d ays ZITHROMAX Z-KARTHIK 250 MG ORAL TABLET 480499 AZITHROMYCIN Inactive PREDNISONE 20 MG ORAL TABLET 2 tabs daily for 3 days, 1 tab daily for 3 days, 1/2 tab daily for 2 days PREDNISONE 20 MG ORAL T ABLET 348469 PREDNISONE Inactive AZITHROMYCIN 250 MG ORAL TABLET 2 po qd x 1 day, then 1 po q d x 4 days AZITHROMYCIN 250 MG ORAL TABLET 834720 AZITHROMY SPARKLE Inactive PREDNISONE 20 MG ORAL TABLET 2 tabs daily for 3 days, 1 tab daily for 3 days, 1/2 tab daily for 2 days PREDNISONE 20 MG ORAL TABLET 084000 PREDNISONE Inactive CEFDINIR 300 MG ORAL CAPSULE by mouth twice a day 2013 CEFDINIR 300 MG ORAL CAPSULE 218898 CEFDINIR Inactive TRIAMCINOLONE ACETONIDE 0.1 % EXTERNAL OINTMENT Apply to affected areas TID for up to 2 weeks TRIAMCINOLONE ACETON ZACH 0.1 % EXTERNAL OINTMENT 7845968 TRIAMCINOLONE ACETONIDE Inactive PREDNISONE 20 MG ORAL TABLET 2 tabs daily for 3 days, 1 tab daily for 3 days, 1/2 tab daily for 2 days PREDNISONE 20 MG ORAL T ABLET 050807 PREDNISONE Inactive BACTRIM DS 800-160 MG ORAL TABLET 1 po BID x 7 days 29/04/10 BACTRIM DS 800-160 MG ORAL TABLET 143763 SULFAMETHOXAZOLE-TRIMETHOP RIM Inactive CIPRO 500 MG ORAL TABLET 1 tablet by mouth twice daily CIPRO 500 MG ORAL TABLET 355906 CIPROFLOXACIN HCL Inactive AZITHROMYCIN 250 MG ORAL TABLET 2 po qd x 1 day, then 1 po q d x 4 days AZITHROMYCIN 250 MG ORAL TABLET 571455 AZITHROMY SPARKLE Inactive FLAGYL 500 MG ORAL TABLET 1 tablet by mouth bid 04/13 FLAGYL 500 MG ORAL TABLET 671085 METRONIDAZOLE Inactive AZITHROMYCIN 250 MG ORAL TABLET 2 po qd x 1 day, then 1 po q d x 4 days AZITHROMYCIN 250 MG ORAL TABLET 011418 AZITHROMY SPARKLE Inactive AMOXICILLIN 500 MG ORAL CAPSULE 2 po BID x 10 days 01/15/27 AMOXICILLIN 500 MG ORAL CAPSULE 939463 AMOXICILLIN Inactive AMOXICILLIN 500 MG ORAL CAPSULE 2 po BID x 14 days for [facility] AMOXICILLIN 500 MG ORAL CAPSULE 426409 AMOXICILLIN Inactive CLARITHROMYCIN 500 MG ORAL TABLET 1 tab po BID x 14 days CLARITHROMYCIN 500 MG ORAL TABLET 112813 CLARITHROMYCIN Inacti ve FLAGYL 500 MG ORAL TABLET 1 tablet by mouth bid 08/29 FLAGYL 500 MG ORAL TABLET 188041 METRONIDAZOLE Inactive PROTONIX 40 MG ORAL TABLET DELAYED RELEASE 1 pill by m outh daily, for acid reflux PROTONIX 40 MG ORAL TABLET DELAYED RELEAS E 948140 PANTOPRAZOLE SODIUM Inactive Immunizations Vaccine Administration Date [...] Panel - Chemistry sodium, serum 142 mmol/L 154-402 5135/07/22 carbon dioxide, venous blood 26.3 mmol/L 21.0-32 [...] 0.80 mg/dL 0.00-1.00 cholesterol, serum 172 mg/dL 988-628 7908/07/22 triglyceride, serum, fasting 222 mg/dL 30-200 HDL [...] 0-29 Encounters Code Encounter Date Provider Facility CPT-60524 Level 3 Est. Patient 06:02:19 CDT Radha Dic k HEEL COVERER-C [facility] CPT-31924 Level 3 Est. Patient 09:11:53 CDT Radha Dic k HEEL COVERER-C [facility] CPT-94027 Level 3 Est. Patient 16:46:51 CDT Thomas reynolds DO [facility] CPT-09197 [id number] Vst-Est Level III 14:40:49 CDT Paul Hamlin MD [facility] CPT-59188 Level 4 Est. Patient 11:08:43 CDT Checo Conklin MD [facility] CPT-44753 [id number] Vst-Est Level III 09:37:41 CDT Dangelo Rangel MD [facility] CPT-21904 Level 4 Est. Patient 08:57:51 BAD WORK GATHERER Checo Conklin MD [facility] CPT-44583 Level 3 Est. Patient 11:24:55 BAD WORK GATHERER Efren almendarez [facility] CPT-24071 Level 3 Est. Patient 13:05:44 CDT Paul Hamlin MD [facility] CPT-16720 Level 3 Est. Patient 11:29:55 CDT Checo Conklin MD [facility] CPT-93796 Level 4 Est. Patient 11:08:12 BAD WORK GATHERER Checo Conklin MD [facility] CPT-21680 Level 4 Est. Patient 16:06:48 BAD WORK GATHERER Checo Conklin MD [facility] CPT-97814 Level 3 Est. Patient 09:11:49 CDT Efren almendarez [facility] CPT-70383 Level 2 Est. Patient 19:53:27 CDT Tanner hill MD [facility] CPT-23442 Level 3 Est. Patient 09:15:34 CDT Efren almendarez [facility] CPT-03219 Level 3 Est. Patient 11:28:51 BAD WORK GATHERER Efren almendarez [facility] CPT-91254 Level 4 Est. Patient 13:55:46 BAD WORK GATHERER Checo Conklin MD [facility] CPT-04837 Level 4 Est. Patient 17:10:53 CDT Checo Conklin MD [facility] CPT-18022 Level 3 Est. Patient 15:56:22 CDT Checo Conklin MD [facility] CPT-58495 Level 3 Est. Patient 15:29:07 CDT Checo Conklin MD [facility] CPT-65672 Level 3 Est. Patient 14:38:41 CDT Checo Conklin MD [facility] CPT-89965 Level 3 Est. Patient 15:22:03 BAD WORK GATHERER Thomas reynolds DO [facility] CPT-29206 Level 3 Est. Patient 13:34:17 BAD WORK GATHERER Checo Conklin MD [facility] CPT-51158 Level 3 Est. Patient 12:29:32 CDT Dangelo arroyo MD [facility] CPT-80591 Level 3 Est. Patient 16:53:02 CDT Checo Conklin MD [facility] CPT-98281 Level 3 Est. Patient 16:37:13 CDT Checo Conklin MD [facility] CPT-74197 Level 3 Est. Patient 16:16:59 CDT Paul Hamlin MD [facility] CPT-56665 Level 3 Est. Patient 14:20:13 CDT Dangelo arroyo MD [facility] CPT-14799 Level 4 Est. Patient 11:29:33 CDT Checo Conklin MD [facility] CPT-33572 Level 3 Est. Patient 17:08:31 CDT Checo Conklin MD [facility] CPT-32648 Level 3 Est. Patient 16:50:42 BAD WORK GATHERER Checo Conklin MD [facility] CPT-26473 Level 4 Est. Patient 09:26:08 BAD WORK GATHERER Checo Conklin MD [facility] CPT-23147 Level 3 Est. Patient 11:37:10 CDT Checo Conklin MD [facility] CPT-59963 Level 4 Est. Patient 14:07:38 CDT Checo Conklin MD [facility] CPT-38295 Level 3 Est. Patient 09:54:41 CDT Checo Conklin MD [facility] CPT-96889 Level 3 Est. Patient 11:10:54 CDT Paul Hamlin MD [facility] CPT-53394 Level 3 Est. Patient 14:16:56 BAD WORK GATHERER Checo Conklin MD [facility] CPT-69817 Level 3 Est. Patient 11:04:11 [employer]AD WORK G[employer]ER Checo Conklin MD [facility] CPT-21006 Level 3 Est. Patient 17:09:26 CDT Dangelo arroyo MD [facility] CPT-79441 Level 3 Est. Patient 16:54:37 CDT Checo Conklin MD [facility] Procedures Code Procedure Name Date Entry Date Standard Desc ription CPT-78639 Abx/Therapy Injection 09:52:15 CDT CPT-08349 Abx/Therapy Injection 18:17:48 CDT CPT-J2550 Phenergan 25 mg (Promethazine) 16:48:23 CDT CPT-J1885 Toradol 60 mg 16:48:23 CDT CPT-09170 Wrist, right, comp 3V - XRAY USE ONLY 09:24:31 CDT CPT-20154 Abd compl w upright - XRAY USE ONLY 1 1:36:54 [employer] G[employer] CPT-11967 UA w micro - LAB USE ONLY 17:06:46 CDT 2015 CPT-03840 [facility] Qual - LAB USE ONLY 17:06:46 CDT 05/06 CPT-10437 CMP - LAB USE ONLY 17:06:46 CDT CPT-21704 CBC with Diff - LAB USE ONLY 17:06:45 CDT 2 CPT-36140 Venipuncture Draw Fee 17:06:45 CDT CPT-LR Lesion Removal 19:53:27 CDT CPT-OV Office Visit 11:31:28 CDT CPT-53025 Tubersol 09:39:29 CDT CPT-J2550 Phenergan 25 mg (Promethazine) 13:59:02 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
--- OUTSIDE RECORDS SUMMARY | 2019-09-29 01:09 | XMS REPORT | Clinical Summary ---
Author Author Admin, Bethany Ayala [employer] Address Unknown Phone Unavailable Allergies, Adverse Reactions, [...] Index 27.0-27.9 Adult Resolved 2018 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 EDI ANALYST-C Body Mass Index 27.0-27.9, adult Body Mass [...] Checo Conklin MD Sinusitis, acute ICD-461.9 Inactive hCeco Ortiz MD Repeated falls ICD-781.99 Inactive Checo ngo MD Abdominal pain, generalized ICD-789.07 Inactive Checo Conklin MD Nausea ICD-787.02 Inactive Checo Conklin MD 201 02/15/12 Body Mass Index 25.0-25.9 Adult Robbin aHmlin MD Body Mass Index 27.0-27.9 Adult Jeremias Marks MA Medication List Medication Instructions Start Date Stop Date Generic Name NDC Status Provider Patient Instruction CELEXA 10 MG ORAL TABLET 1 tab PO daily for anxiety/d epression may increase to 2 tabs daily in 2 weeks if needed CITALOPRAM HYDRO BROMIDE 34999604088 Active 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 APRN-C Active PROZAC 10 MG ORAL CAPSULE 1 PO Daily FLUOXETINE HCL 66730297269 No Longer Active 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 APRN-C Active VYVANSE 30 MG ORAL CAPSULE 1 PO daily LISDEXAMF ETAMINE DIMESYLATE 28205852415 Active 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 EDI ANALYST-C Active XANAX 0.5 MG ORAL TABLET 1 tablet PO BID; PRN A LPRAZOLAM 54982519136 Active Radhasantos Whitaker EDI ANALYST-C Active SIMVASTATIN 20 MG ORAL TABLET 1 tablet PO daily SI MVASTATIN 68227266091 Active Radhasantos Whitaker EDI ANALYST-C Active IBUPROFEN 800 MG ORAL TABLET 1 tablet PO q8hr PRN IBUPROFEN 06676612688 Active Radhasantos Whitaker EDI ANALYST-C Active AMBIEN 5 MG ORAL TABLET 1 tablet PO once daily; PRN ZOLPIDEM TARTRATE 35776817050 Active 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 EDI ANALYST-C Active ALBUTEROL SULFATE HFA 108 (90 BASE) MCG/ACT INHALATION AEROSOL SOLUTION 2 puffs, INH, q4hr PRN ALBUTEROL SULFATE 38811044166 Active Radha Sherman A PRN-C Active AMBIEN 5 MG ORAL TABLET 1 po qHS PRN Insomnia ZOLPIDEM TARTRATE 33910963088 No Longer Active 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 APRN-C Active XANAX 0.5 MG ORAL TABLET 1 po BID PRN anxiety A LPRAZOLAM 51650135850 No Longer Active 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 EDI ANALYST-C Active PAROXETINE HCL 40 MG ORAL TABLET 1 po qd PAR OXETINE HCL 12751871941 No Longer Active 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 EDI ANALYST-C Active FOCALIN XR 10 MG ORAL CAPSULE EXTENDED RELEASE 24 HOUR 1 po q a. m. DEXMETHYLPHENIDATE HCL 12102264972 No Longer Active Radha Low EDI ANALYST-C Active SIMVASTATIN 20 MG ORAL TABLET 1 po qd SIMVAS TATIN 15067025086 No Longer Active 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 EDI ANALYST-C Active FUROSEMIDE 20 MG ORAL TABLET 1 daily for swelling 2018 FUROSEMIDE 86302992835 No Longer Active 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 EDI ANALYST-C Active KLOR-CON 10 10 MEQ ORAL TABLET EXTENDED RELEASE 1 daily with furosemide POTASSIUM CHLORIDE 89507349172 No Longer Active 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 EDI ANALYST-C Active HYDROCHLOROTHIAZIDE 12.5 MG ORAL CAPSULE 1 po qd PRN Edema 01/10 HYDROCHLOROTHIAZIDE 61767554273 No Longer Active Paul Hamlin MD Active IBUPROFEN 800 MG ORAL TABLET 1 tab every 8 hours as needed for p ain IBUPROFEN 04679416287 No Longer Active Paul Hamlin MD Active MIRALAX ORAL POWDER 8.5 to 17g po qd PRN Constipation POLYETHYLENE GLYCOL 3350 79547011185 No Longer Active Checo Conklin MD Active PROTONIX 40 MG ORAL TABLET DELAYED RELEASE [address] [facility] daily, for acid reflux PANTOPRAZOLE SODIUM 52589439207 No Longer Activ e Corry Méndez LPN Active FLAGYL 500 MG ORAL TABLET 1 tablet by mouth bid 08/29 METRONIDAZOLE 30306130134 No Longer Active Corry Méndez LPN Active CLARITHROMYCIN 500 MG ORAL TABLET 1 tab po BID x 14 days CLARITHROMYCIN 14954770041 No Longer Active Corry Méndez LPN Active AMOXICILLIN 500 MG ORAL CAPSULE 2 po BID x 14 days for [facility]. Pylori AMOXICILLIN 98279058084 No Longer Active Corry Méndez LPN Active FLUTICASONE PROPIONATE 50 MCG/ACT NASAL SUSPENSION 2 s prays/nostril qd PRN Congestion/Allergies FLUTICASONE PROPIONATE 1612997743 9 No Longer Active Checo Conklin MD Active AMOXICILLIN 500 MG ORAL CAPSULE 2 po BID x 10 days 201 01/15/27 AMOXICILLIN 54943012309 No Longer Active Checo Conklin MD Activ e CLARITIN 10 MG ORAL TABLET 1 tablet by mouth daily as needed for allergies LORATADINE 36321419407 No Longer Active Checo Ortiz MD Active BACTRIM DS 800-160 MG ORAL TABLET 1 tab by mouth twice daily 201 12/19/26 TRIMETHOPRIM-SULFAMETHOXAZOLE 65925975251 No Longer Active Ragini Carrillo MD Active DIFLUCAN 150 MG ORAL TABLET 1 tablet by mouth qod 2015 FLUCONAZOLE 41945941901 No Longer Active Efren Medel EDI ANALYST Act mike AZITHROMYCIN 250 MG ORAL TABLET 2 po qd x 1 day, then 1 po q d x 4 days AZITHROMYCIN 38492630226 No Longer Active Efren flores EDI ANALYST Active FLAGYL 500 MG ORAL TABLET 1 tablet by mouth bid 04/13 METRONIDAZOLE 18031831424 No Longer Active Checo Conklin MD Acti ve MAGNESIUM CITRATE 1.745 GM/30ML ORAL SOLUTION 150ml po BID P RN Constipation MAGNESIUM CITRATE 07262500078 No Longer Active Checo Conklin MD Active BACTROBAN 2 % EXTERNAL CREAM Apply to affected area BID for up to 10 days MUPIROCIN CALCIUM 03354122470 No Longer Active Checo Conklin MD Active HYDROCODONE-ACETAMINOPHEN 5-325 MG ORAL TABLET 1 tab b y mouth every 6 hours as needed HYDROCODONE-ACETAMINOPHEN 16745380081 No Longer Active Checo Conklin MD Active IBUPROFEN 800 MG ORAL TABLET 1 tab every 8 hours with food 03/20 IBUPROFEN 58454838040 No Longer Active Checo Conklin MD Active DIFLUCAN 150 MG ORAL TABLET 1 tablet by mouth if neede d, hold until symptoms start FLUCONAZOLE 75885878009 No Longer Active Checo Conklin MD Active BACTRIM DS 800-160 MG ORAL TABLET 1 tab by mouth twice daily 201 11/23/03 TRIMETHOPRIM-SULFAMETHOXAZOLE 31789533972 No Longer Active Bonnie Méndez LPN Active HYDROCODONE-ACETAMINOPHEN 5-325 MG ORAL TABLET 0.5 to 1 tab by mouth every 6 hours as needed HYDROCODONE-ACETAMINOPHEN 07480736755 No Longer Active Checo Conklin MD Active ONDANSETRON 8 MG ORAL TABLET DISINTEGRATING place one tablet on tongue and allow to dissolve every 6 hours as needed for vomitting ONDANSETRON 51652822498 No Longer Active Checo Conklin MD Activ e COMPRO 25 MG RECTAL SUPPOSITORY insert or apply one garza ppository rectally as directed every 12 hours as needed for nausea PROCHLORPERAZINE 76920710821 No Longer Active Checo Conklin MD A ctive SUMATRIPTAN SUCCINATE 100 MG ORAL TABLET Take one PRN for migran e SUMATRIPTAN SUCCINATE 53695735397 No Longer Active Checo Conklin MD Active TRAVEL SICKNESS 25 MG ORAL TABLET CHEWABLE chew and sw allow one tablet every 6 hours as needed MECLIZINE HCL 81743066443 No Longer A ctive Checo Conklin MD Active BUPROPION HCL ER (SR) 100 MG ORAL TABLET EXTENDED RELE ASE 12 HOUR take one tablet by mouth one time daily for one week then take 1 two times daily BUPROPION HCL 46381987594 No Longer Active Checo gallagher MD Active TERBINAFINE HCL 250 MG ORAL TABLET take one table PO one time da moises TERBINAFINE HCL 07518277446 No Longer Active Checo Conklin MD Active METOCLOPRAMIDE HCL 10 MG ORAL TABLET take one PO tid PRN nausea METOCLOPRAMIDE HCL 62008509574 No Longer Active Checo Conklin MD Active DICLOFENAC SODIUM 75 MG ORAL TABLET DELAYED RELEASE 1 tablet by mouth twice daily PRN Knee pain DICLOFENAC SODIUM 91148526050 No Longer Active Checo Conklin MD Active LAMISIL 250 MG ORAL TABLET 1 po qd TERBINAFI NE HCL 96219786599 No Longer Active Checo Conklin MD Active REGLAN 10 MG ORAL TABLET 1 po TID PRN Nausea 3 METOCLOPRAMIDE HCL 59444946970 No Longer Active Checo Conklin MD Active CELEXA 20 MG ORAL TABLET 1 tablet by mouth daily 09/26 CITALOPRAM HYDROBROMIDE 41079787287 No Longer Active Checo Conklin MD Active AZITHROMYCIN 250 MG ORAL TABLET 2 po qd x 1 day, then 1 po q d x 4 days AZITHROMYCIN 03621421983 No Longer Active Checo Ortiz MD Active HYDROCODONE-ACETAMINOPHEN 5-325 MG ORAL TABLET 1 po q 6hr PRN Pa in HYDROCODONE-ACETAMINOPHEN 48927175318 No Longer Active Lenora Conklin MD Active PHENAZOPYRIDINE HCL 200 MG ORAL TABLET take 1 tab po TID for bladder pain PHENAZOPYRIDINE HCL 56506059237 No Longer Active Joe Conklin MD Active CIPRO 500 MG ORAL TABLET 1 tablet by mouth twice daily CIPROFLOXACIN HCL 33187036940 No Longer Active Dangelo Rangel MD Active HYDROCODONE-ACETAMINOPHEN 5-325 MG ORAL TABLET 1/2 to 1 po q 4 hours prn cough HYDROCODONE-ACETAMINOPHEN 10363474817 No Longer Activ e Dangelo Rangel MD Active BACTRIM DS 800-160 MG ORAL TABLET 1 po BID x 7 days 29/04/10 SULFAMETHOXAZOLE-TRIMETHOPRIM 28433156338 No Longer Active Checo Conklin MD Active PREDNISONE 20 MG ORAL TABLET 2 tabs daily for 3 days, 1 tab daily for 3 days, 1/2 tab daily for 2 days PREDNISONE 52550306075 No Longer Active Checo Conklin MD Active TRIAMCINOLONE ACETONIDE 0.1 % EXTERNAL OINTMENT Apply to affected areas TID for up to 2 weeks TRIAMCINOLONE ACETONIDE 46166847427 No Longer Active Checo Conklin MD Active CEFDINIR 300 MG ORAL CAPSULE by mouth twice a day 2013 CEFDINIR 99105256829 No Longer Active Dangelo Rangel MD Acti ve BUPROPION HCL ER (SMOKING DET) 150 MG ORAL TABLET EXTE NDED RELEASE 12 HOUR 1 a day for 1 week then 1 twice a day BUPROPION HCL (SMOKING DETER) 33057574636 No Longer Active Checo Conklin MD Active CHANTIX STARTING MONTH KARTHIK 0.5 MG X 11 & 1 MG X 42 ORA L TABLET 0.5mg daily for 3 days, then 0.5mg BID for 4 days, then 1mg BID VARENICLINE TARTRATE 60483579727 No Longer Active Checo Conklin MD Activ e CONCERTA 18 MG ORAL TABLET EXTENDED RELEASE 1 po q a.m. METHYLPHENIDATE HCL 13578663498 No Longer Active Checo Conklin MD Active TRAZODONE HCL 100 MG ORAL TABLET 0.5 to 1 po qHS PRN Insomnia 20 30/07/08 TRAZODONE HCL 67964371615 No Longer Active Checo Conklin MD Active FIORICET 325-50-40 MG TAB 1 tablet by mouth four times daily as needed [id number] 56246314195 No Longer Active Checo Conklin MD Active PHENERGAN CREAM* 25mg applied to wrist q6hr PRN Nausea PHENERGAN CREAM* No Longer Active Checo Conklin MD A ctive FLONASE 50 MCG/ACT NASAL SUSPENSION 1 spray each nostril am and hs FLUTICASONE PROPIONATE 05046151965 No Longer Active Checo Conklin MD Active ANTIPYRINE-BENZOCAINE 5.4-1.4 % OTIC SOLUTION 1-2 drops in affec yohannes ear BENZOCAINE-ANTIPYRINE 39545880069 No Longer Active Checo Conklin MD Active CEFDINIR 300 MG ORAL CAPSULE 1 po bid CEFDINIR 76422657009 No Longer Active Checo Conklin MD Active PREDNISONE 20 MG ORAL TABLET 2 tabs daily for 3 days, 1 tab daily for 3 days, 1/2 tab daily for 2 days PREDNISONE 60426359600 No Longer Active Checo Conklin MD Active AZITHROMYCIN 250 MG ORAL TABLET 2 po qd x 1 day, then 1 po q d x 4 days AZITHROMYCIN 58473861880 No Longer Active Checo Ortiz MD Active PREDNISONE 20 MG ORAL TABLET 2 tabs daily for 3 days, 1 tab daily for 3 days, 1/2 tab daily for 2 days PREDNISONE 41326506851 No Longer Active Checo Conklin MD Active ZITHROMAX Z-KARTHIK 250 MG ORAL TABLET 2 today, then 1 daily for 4 d ays AZITHROMYCIN 27138179376 No Longer Active Paul Hamlin MD Active FOCALIN XR 10 MG ORAL CAPSULE EXTENDED RELEASE 24 HOUR 1 po q a. m. DEXMETHYLPHENIDATE HCL 43933594571 No Longer Active Paul Hamlin MD Active PERCOCET 10-325 MG ORAL TABLET 1 tablet every 6 hours as needed for pain OXYCODONE-ACETAMINOPHEN 44219246201 No Longer Active Paul Hamlin MD Active LORTAB 5-500 MG ORAL TABLET 1/2 to 1 tablet by mouth e very 4 hours as needed for pain HYDROCODONE-ACETAMINOPHEN 31702337669 No Longer Active Checo Conklin MD Active FOCALIN XR 15 MG ORAL CAPSULE EXTENDED RELEASE 24 HOUR 1 po q a. m. DEXMETHYLPHENIDATE HCL 80903719822 No Longer Active Checo Conklin MD Active ZOFRAN ODT 4 MG ORAL TABLET DISINTEGRATING 1 po q6hr PRN Nausea ONDANSETRON 77664736546 No Longer Active Checo Conklin MD Active PERCOCET 5-325 MG ORAL TABLET 1 tablet by mouth every 6 hour s as needed OXYCODONE-ACETAMINOPHEN 88269793835 No Longer Active Checo Conklin MD Active PYRIDIUM 200 MG ORAL TABLET take 1 tab po TID prn urinary pain. PHENAZOPYRIDINE HCL 12690386148 No Longer Active Checo Joshua Active FLUCONAZOLE 150 MG ORAL TABLET take 1 tab po qday once FLUCONAZOLE 36510607929 No Longer Active Dangelo Rangel MD Acti ve CIPRO 500 MG ORAL TABLET 1 tablet by mouth twice daily CIPROFLOXACIN HCL 54948704170 No Longer Active Dangelo Rangel MD Active PYRIDIUM 200 MG ORAL TABLET take 1 tab po TID prn urinary pain. PYRIDIUM 200 MG ORAL TABLET 5792690 PHENAZOPYRIDINE HCL Inactive PERCOCET 5-325 MG ORAL TABLET 1 tablet by mouth every 6 hour s as needed PERCOCET 5-325 MG ORAL TABLET 9766538 OXYCODONE-ACETAMINOPHEN Inactive ZOFRAN ODT 4 MG ORAL [...] for pain PERCOCET 10-325 MG ORAL TABLET 9658345 OXYCODONE-ACETAMI NOPHEN Inactive FOCALIN XR 10 MG ORAL CAPSULE EXTENDED RELEASE 24 HOUR 1 po q a. m. FOCALIN XR 10 MG ORAL CAPSULE EXTENDED RELEASE 24 HOUR DEXMETHYLPHENIDATE HCL Inactive CEFDINIR 300 MG ORAL CAPSULE 1 po bid CEFDINI R 300 MG ORAL CAPSULE 804658 CEFDINIR Inactive ANTIPYRINE-BENZOCAINE 5.4-1.4 % OTIC SOLUTION [...] 30/07/08 TRAZODONE HCL 100 MG ORAL TABLET 162981 TRAZODONE HCL Inactive CONCERTA 18 MG ORAL [...] cough HYDROCODONE-ACETAMINOPHEN 5-325 MG ORAL TABLET 8 00322 HYDROCODONE-ACETAMINOPHEN Inactive PHENAZOPYRIDINE HCL 200 MG ORAL TABLET take 1 tab po TID for bladder pain PHENAZOPYRIDINE HCL 200 MG ORAL TABLET 8329843 PHENAZOPYRIDINE HCL Inactive HYDROCODONE-ACETAMINOPHEN 5-325 MG ORAL TABLET 1 po q 6hr PRN Pa in HYDROCODONE-ACETAMINOPHEN 5-325 MG ORAL TABLET 242796 HYDROCODONE-ACETAMINOPHEN Inactive CELEXA 20 MG ORAL TABLET 1 tablet by mouth daily 09/26 CELEXA 20 MG ORAL TABLET 130528 CITALOPRAM HYDROBROMIDE Inactive REGLAN 10 MG ORAL TABLET 1 po TID PRN Nausea 3 REGLAN 10 MG ORAL TABLET 242198 METOCLOPRAMIDE HCL Inactive LAMISIL 250 MG ORAL TABLET 1 po qd L AMISIL 250 MG ORAL TABLET 692491 TERBINAFINE HCL Inactive DICLOFENAC SODIUM 75 MG ORAL TABLET DELAYED RELEASE 1 tablet by mouth twice daily PRN Knee pain DICLOFENAC SODIUM 75 MG ORAL TABLET DELAYED RELEASE 040456 DICLOFENAC SODIUM Inactive METOCLOPRAMIDE HCL 10 MG ORAL TABLET take one PO tid PRN nausea METOCLOPRAMIDE HCL 10 MG ORAL TABLET 292097 METOCLOPRAM ZACH HCL Inactive TERBINAFINE HCL 250 MG ORAL TABLET take one table PO one time da moises TERBINAFINE HCL 250 MG ORAL TABLET 152138 TERBINAFINE H CL Inactive BUPROPION HCL ER [...] SICKNESS 25 M G ORAL TABLET CHEWABLE 720156 MECLIZINE HCL Inactive SUMATRIPTAN SUCCINATE 100 MG ORAL TABLET Take one PRN for migran e SUMATRIPTAN SUCCINATE 100 MG ORAL TABLET 472366 SUMATRIPTAN SUCCINATE Inactive COMPRO 25 MG RECTAL SUPPOSITORY insert or apply one garza ppository rectally as directed every 12 hours as needed for nausea COMPRO 25 MG RECTAL SUPPOSITORY 062782 PROCHLORPERAZINE Inactive ONDANSETRON 8 MG ORAL TABLET DISINTEGRATING place one tablet on tongue and allow to dissolve every 6 hours as needed for vomitting ONDANSETRON 8 MG ORAL TABLET DISINTEGRATING 090403 ONDANSETRON Inactive HYDROCODONE-ACETAMINOPHEN 5-325 MG ORAL TABLET 0.5 to 1 tab by mouth every 6 hours as needed HYDROCODONE-ACETAMIN OPHEN 5-325 MG ORAL TABLET 329370 HYDROCODONE-ACETAMINOPHEN Inactive BACTRIM DS 800-160 MG ORAL TABLET 1 tab by mouth twice daily 201 11/23/03 BACTRIM DS 800-160 MG ORAL TABLET 078601 TRIMETHOPRIM-SULFAMETHOXAZOLE Inactive DIFLUCAN 150 MG ORAL TABLET [...] as needed HYDROCODONE-ACETAMINOPHEN 5-325 MG ORAL TABLET 704081 HYDROCODONE-ACETAMINOPHEN Inactive BACTROBAN 2 % EXTERNAL CREAM Apply to affected area BID for up to 10 days BACTROBAN 2 % EXTERNAL CREAM MUPIROCIN CA LCIUM Inactive MAGNESIUM CITRATE 1.745 GM/30ML ORAL SOLUTION 150ml po BID P RN Constipation MAGNESIUM CITRATE 1.745 GM/30ML ORAL SOLUTION 10 33673 MAGNESIUM CITRATE Inactive DIFLUCAN 150 MG ORAL TABLET 1 tablet by mouth qod 2015 DIFLUCAN 150 MG ORAL TABLET 412100 FLUCONAZOLE Inactive BACTRIM DS 800-160 MG ORAL TABLET 1 tab by mouth twice daily 201 12/19/26 BACTRIM DS 800-160 MG ORAL TABLET 100226 TRIMETHOPRIM-SULFAMETHOXAZOLE Inactive CLARITIN 10 MG ORAL TABLET 1 tablet by mouth daily as needed for allergies CLARITIN 10 MG ORAL TABLET 775931 LORATADINE I nactive FLUTICASONE PROPIONATE 50 MCG/ACT NASAL SUSPENSION 2 s prays/nostril qd PRN Congestion/Allergies FLUTICASONE PROPION ATE 50 MCG/ACT NASAL SUSPENSION 8048309 FLUTICASONE PROPIONATE Inactive MIRALAX ORAL POWDER 8.5 to 17g po qd PRN Constipation MIRALAX ORAL POWDER 772592 POLYETHYLENE GLYCOL 3350 Inactive IBUPROFEN 800 MG ORAL TABLET 1 tab every 8 hours as needed for p ain IBUPROFEN 800 MG ORAL TABLET 821770 IBUPROFEN [place] ctive HYDROCHLOROTHIAZIDE 12.5 MG ORAL CAPSULE 1 po qd PRN Edema 01/10 HYDROCHLOROTHIAZIDE 12.5 MG ORAL CAPSULE 540537 HYDROCH LOROTHIAZIDE Inactive KLOR-CON 10 10 MEQ ORAL TABLET EXTENDED RELEASE 1 daily with furosemide KLOR-CON 10 10 MEQ ORAL TABLET EXTENDED RELEASE POTASSIUM CHLORIDE Inactive FUROSEMIDE 20 MG ORAL TABLET 1 daily for swelling 2018 FUROSEMIDE 20 MG ORAL TABLET 089322 FUROSEMIDE Inactive SIMVASTATIN 20 MG ORAL TABLET 1 po qd SIMVASTATIN 20 MG ORAL TABLET 762264 SIMVASTATIN Inactive FOCALIN XR 10 MG ORAL CAPSULE EXTENDED RELEASE 24 HOUR 1 po q a. m. FOCALIN XR 10 MG ORAL CAPSULE EXTENDED RELEASE 24 HOUR DEXMETHYLPHENIDATE HCL Inactive PAROXETINE HCL 40 MG ORAL TABLET 1 po qd PAROXETINE HCL 40 MG ORAL TABLET 4587306 PAROXETINE HCL Inactive XANAX 0.5 MG ORAL TABLET 1 po BID PRN anxiety XANAX 0.5 MG ORAL TABLET 759975 ALPRAZOLAM Inactive AMBIEN 5 MG ORAL TABLET 1 po qHS PRN Insomnia AMBIEN 5 MG ORAL TABLET 942944 ZOLPIDEM TARTRATE Inactive PROZAC 10 MG ORAL CAPSULE 1 PO Daily TN OZAC 10 MG ORAL CAPSULE 619345 FLUOXETINE HCL Inactive CIPRO 500 MG ORAL TABLET 1 tablet by mouth twice daily CIPRO 500 MG ORAL TABLET 299535 CIPROFLOXACIN HCL Inactive FLUCONAZOLE 150 MG ORAL TABLET take 1 tab po qday once FLUCONAZOLE 150 MG ORAL TABLET 422552 FLUCONAZOLE Inactive ZITHROMAX Z-KARTHIK 250 MG ORAL TABLET 2 today, then 1 daily for 4 d ays ZITHROMAX Z-KARTHIK 250 MG ORAL TABLET 555991 AZITHROMYCIN Inactive PREDNISONE 20 MG ORAL TABLET 2 tabs daily for 3 days, 1 tab daily for 3 days, 1/2 tab daily for 2 days PREDNISONE 20 MG ORAL T ABLET 019280 PREDNISONE Inactive AZITHROMYCIN 250 MG ORAL TABLET 2 po qd x 1 day, then 1 po q d x 4 days AZITHROMYCIN 250 MG ORAL TABLET 392518 AZITHROMY SPARKLE Inactive PREDNISONE 20 MG ORAL TABLET 2 tabs daily for 3 days, 1 tab daily for 3 days, 1/2 tab daily for 2 days PREDNISONE 20 MG ORAL TABLET 759306 PREDNISONE Inactive CEFDINIR 300 MG ORAL CAPSULE by mouth twice a day 2013 CEFDINIR 300 MG ORAL CAPSULE 799346 CEFDINIR Inactive TRIAMCINOLONE ACETONIDE 0.1 % EXTERNAL OINTMENT Apply to affected areas TID for up to 2 weeks TRIAMCINOLONE ACETON ZACH 0.1 % EXTERNAL OINTMENT 6792011 TRIAMCINOLONE ACETONIDE Inactive PREDNISONE 20 MG ORAL TABLET 2 tabs daily for 3 days, 1 tab daily for 3 days, 1/2 tab daily for 2 days PREDNISONE 20 MG ORAL T ABLET 884728 PREDNISONE Inactive BACTRIM DS 800-160 MG ORAL TABLET 1 po BID x 7 days 29/04/10 BACTRIM DS 800-160 MG ORAL TABLET 218034 SULFAMETHOXAZOLE-TRIMETHOP RIM Inactive CIPRO 500 MG ORAL TABLET 1 tablet by mouth twice daily CIPRO 500 MG ORAL TABLET 925209 CIPROFLOXACIN HCL Inactive AZITHROMYCIN 250 MG ORAL TABLET 2 po qd x 1 day, then 1 po q d x 4 days AZITHROMYCIN 250 MG ORAL TABLET 026974 AZITHROMY SPARKLE Inactive FLAGYL 500 MG ORAL TABLET 1 tablet by mouth bid 04/13 FLAGYL 500 MG ORAL TABLET 073081 METRONIDAZOLE Inactive AZITHROMYCIN 250 MG ORAL TABLET 2 po qd x 1 day, then 1 po q d x 4 days AZITHROMYCIN 250 MG ORAL TABLET 899539 AZITHROMY SPARKLE Inactive AMOXICILLIN 500 MG ORAL CAPSULE 2 po BID x 10 days 01/15/27 AMOXICILLIN 500 MG ORAL CAPSULE 751229 AMOXICILLIN Inactive AMOXICILLIN 500 MG ORAL CAPSULE 2 po BID x 14 days for [facility] AMOXICILLIN 500 MG ORAL CAPSULE 555479 AMOXICILLIN Inactive CLARITHROMYCIN 500 MG ORAL TABLET 1 tab po BID x 14 days CLARITHROMYCIN 500 MG ORAL TABLET 886759 CLARITHROMYCIN Inacti ve FLAGYL 500 MG ORAL TABLET 1 tablet by mouth bid 08/29 FLAGYL 500 MG ORAL TABLET 375540 METRONIDAZOLE Inactive PROTONIX 40 MG ORAL TABLET DELAYED RELEASE 1 pill by m outh daily, for acid reflux PROTONIX 40 MG ORAL TABLET DELAYED RELEAS E 082903 PANTOPRAZOLE SODIUM Inactive Immunizations Vaccine Administration Date [...] weight E&M 144 [lb_av] Weight Measure d blood pressure, diastolic 74 mm[Hg] BP mathew blood pressure, systolic 112 mm[Hg] BP sys height E&M 63.5 [in_us] Bdy height pulse rate E&M 76 /min Heart rate temperature E&M 98.5 [degF] Body temp erature weight E&M 153 [lb_av] Weight Measure d Diagnostic Results Date Name Value Unit Range Description Lab Report: CBC, Comp. Metabolic Panel, Lipid Panel - Chemistry sodium, serum 142 mmol/L [phone]/07/22 carbon dioxide, venous blood 26.3 mmol/L 21.0-32 [...] 0.80 mg/dL 0.00-1.00 cholesterol, serum 172 mg/dL [phone]/07/22 triglyceride, serum, fasting 222 mg/dL 30-200 HDL [...] 0-29 Encounters Code Encounter Date Provider Facility CPT-25787 Level 3 Est. Patient 06:02:19 [facility] Level 3 Est. Patient 09:11:53 CD[facility] Level 3 Est. Patient 16:46:51 CDT Thomas reynolds DO [facility] CPT-55062 [id number] Vst-Est Level III 14:40:49 CDT Paul Hamlin MD [facility] CPT-57299 Level 4 Est. Patient 11:08:43 CDT Checo Conklin MD [facility] CPT-60658 [id number] Vst-Est Level III 09:37:41 CDT Dangelo Rangel MD [facility] CPT-35434 Level 4 Est. 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 Patient 11:24:55 BLACK OFF WORKER [facility] CPT-51321 Level 3 Est. Patient 13:05:44 CDT Paul Hamlin MD [facility] CPT-34943 Level 3 Est. Patient 11:29:55 CDT Checo Conklin MD [facility] CPT-72613 Level 4 Est. 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 Patient 16:06:48 BLACK OFF WORKER Checo Conklin MD [facility] CPT-65825 Level 3 Est. Patient 09:11:49 CDT [facility] CPT-15661 Level 2 Est. Patient 19:53:27 CDT Tanner hill MD [facility] CPT-96598 Level 3 Est. Patient 09:15:34 CDT [facility] CPT-87940 Level 3 Est. Patient 11:28:51 BLACK OFF WORKER [facility] CPT-11578 Level 4 Est. Patient 13:55:46 BLACK OFF WORKER Checo Conklin MD [facility] CPT-82552 Level 4 Est. Patient 17:10:53 CDT Checo Conklin MD [facility] CPT-09114 Level 3 Est. Patient 15:56:22 CDT Checo Conklin MD [facility] CPT-26316 Level 3 Est. Patient 15:29:07 CDT Checo Conklin MD [facility] CPT-68661 Level 3 Est. Patient 14:38:41 CDT Checo Conklin MD [facility] CPT-37042 Level 3 Est. 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 Patient 13:34:17 BLACK OFF WORKER Checo Conklin MD [facility] CPT-18656 Level 3 Est. Patient 12:29:32 CDT Dangelo arroyo MD [facility] CPT-10312 Level 3 Est. Patient 16:53:02 CDT Checo Conklin MD [facility] CPT-24318 Level 3 Est. Patient 16:37:13 CDT Checo Conklin MD [facility] CPT-75747 Level 3 Est. Patient 16:16:59 CDT Paul Hamlin MD [facility] CPT-52645 Level 3 Est. Patient 14:20:13 CDT Dangelo arroyo MD [facility] CPT-43348 Level 4 Est. Patient 11:29:33 CDT Checo Conklin MD [facility] CPT-41552 Level 3 Est. Patient 17:08:31 CDT Checo Conklin MD [facility] CPT-22786 Level 3 Est. 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 Patient 09:26:08 BLACK OFF WORKER Checo Conklin MD [facility] CPT-05143 Level 3 Est. Patient 11:37:10 CDT Checo Conklin MD [facility] CPT-34099 Level 4 Est. Patient 14:07:38 CDT Checo Conklin MD [facility] CPT-97899 Level 3 Est. Patient 09:54:41 CDT Checo Conklin MD [facility] CPT-41501 Level 3 Est. Patient 11:10:54 CDT Paul Hamlin MD [facility] CPT-64549 Level 3 Est. 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 Patient 17:09:26 CDT Dangelo arroyo MD [facility] CPT-73636 Level 3 Est. 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
--- OUTSIDE RECORDS SUMMARY | 2019-09-29 01:09 | XMS REPORT | Clinical Summary ---
Author Author Admin, Bethany Gonzales Organization [employer] Address Unknown Phone Unavailable Allergies, Adverse Reactions, [...] Index 27.0-27.9 Adult Resolved 2018 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 APRN-C Body Mass Index 27.0-27.9, adult Body Mass [...] unspecified Depression / anxiety 300.4 Active 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 AP RN-C Dysthymic disorder BREAST CANCER ICD-V16.3 Inactive [...] 201 02/15/12 Body Mass Index 25.0-25.9 Adult Inamajo Hamlin MD Body Mass Index 27.0-27.9 Adult Jeremias Marks MA Medication List Medication Instructions Start Date Stop Date Generic Name NDC Status Provider Patient Instruction CELEXA 10 MG ORAL TABLET 1 tab PO daily for anxiety/d epression may increase to 2 tabs daily in 2 weeks if needed CITALOPRAM HYDRO BROMIDE [id number] Active 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 APRN-C Active PROZAC 10 MG ORAL CAPSULE 1 PO Daily FLUOXETINE HCL 44562578730 No Longer Active 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 APRN-Majo Active VYVANSE 30 MG ORAL CAPSULE 1 PO daily LISDEXAMF ETAMINE DIMESYLATE 45463248783 Active 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 TRANSPORTATION MECHANIC-C Active XANAX 0.5 MG ORAL TABLET 1 tablet PO BID; PRN A LPRAZOLAM 03502551516 Active Radhasantos Whitaker TRANSPORTATION MECHANIC-C Active SIMVASTATIN 20 MG ORAL TABLET 1 tablet PO daily SI MVASTATIN 88689375164 Active Radhasantos Whitaker TRANSPORTATION MECHANIC-C Active IBUPROFEN 800 MG ORAL TABLET 1 tablet PO q8hr PRN IBUPROFEN 12813721931 Active Radhasantos Whitaker TRANSPORTATION MECHANIC-C Active AMBIEN 5 MG ORAL TABLET 1 tablet PO once daily; PRN ZOLPIDEM TARTRATE 58199532511 Active 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 TRANSPORTATION MECHANIC-C Active ALBUTEROL SULFATE HFA 108 (90 BASE) MCG/ACT INHALATION AEROSOL SOLUTION 2 puffs, INH, q4hr PRN ALBUTEROL SULFATE 79511525528 Active Radha Sherman A PRN-C Active AMBIEN 5 MG ORAL TABLET 1 po qHS PRN Insomnia ZOLPIDEM TARTRATE 09197092926 No Longer Active 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 APRN-C Active XANAX 0.5 MG ORAL TABLET 1 po BID PRN anxiety A LPRAZOLAM 00896259745 No Longer Active 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 TRANSPORTATION MECHANIC-C Active PAROXETINE HCL 40 MG ORAL TABLET 1 po qd PAR OXETINE HCL 85040082611 No Longer Active 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 TRANSPORTATION MECHANIC-C Active FOCALIN XR 10 MG ORAL CAPSULE EXTENDED RELEASE 24 HOUR 1 po q a. m. DEXMETHYLPHENIDATE HCL 44783783712 No Longer Active Radha Low TRANSPORTATION MECHANIC-C Active SIMVASTATIN 20 MG ORAL TABLET 1 po qd SIMVAS TATIN 41584241781 No Longer Active Radha Whitaekr TRANSPORTATION MECHANIC-C Active FUROSEMIDE 20 MG ORAL TABLET 1 daily for swelling 2018 FUROSEMIDE 26609290903 No Longer Active 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 TRANSPORTATION MECHANIC-C Active KLOR-CON 10 10 MEQ ORAL TABLET EXTENDED RELEASE 1 daily with furosemide POTASSIUM CHLORIDE 11305209916 No Longer Active 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 TRANSPORTATION MECHANIC-C Active HYDROCHLOROTHIAZIDE 12.5 MG ORAL CAPSULE 1 po qd PRN Edema 01/10 HYDROCHLOROTHIAZIDE 54663518310 No Longer Active Paul Hamlin MD Active IBUPROFEN 800 MG ORAL TABLET 1 tab every 8 hours as needed for p ain IBUPROFEN 67803541510 No Longer Active Paul Hamlin MD Active MIRALAX ORAL POWDER 8.5 to 17g po qd PRN Constipation POLYETHYLENE GLYCOL 3350 44426811673 No Longer Active Checo Conklin MD Active PROTONIX 40 MG ORAL TABLET DELAYED RELEASE 1 pill by [facility] daily, for acid reflux PANTOPRAZOLE SODIUM 35003839105 No Longer Activ e Corry Méndez LPN Active FLAGYL 500 MG ORAL TABLET 1 tablet by mouth bid 08/29 METRONIDAZOLE 56371443946 No Longer Active Corry Méndez LPN Active CLARITHROMYCIN 500 MG ORAL TABLET 1 tab po BID x 14 days CLARITHROMYCIN 10662317913 No Longer Active Corry Méndez LPN Active AMOXICILLIN 500 MG ORAL CAPSULE 2 po BID x 14 days for [facility]. Pyl[facility] AMOXICILLIN 01613369339 No Longer Active Corry Méndez LPN Active FLUTICASONE PROPIONATE 50 MCG/ACT NASAL SUSPENSION 2 s prays/nostril qd PRN Congestion/Allergies FLUTICASONE PROPIONATE 1487923159 9 No Longer Active Checo Conklin MD Active AMOXICILLIN 500 MG ORAL CAPSULE 2 po BID x 10 days 201 01/15/27 AMOXICILLIN 80645765425 No Longer Active Checo Conklin MD Activ e CLARITIN 10 MG ORAL TABLET 1 tablet by mouth daily as needed for allergies LORATADINE 63823360217 No Longer Active Checo Ortiz MD Active BACTRIM DS 800-160 MG ORAL TABLET 1 tab by mouth twice daily 201 12/19/26 TRIMETHOPRIM-SULFAMETHOXAZOLE 95227044398 No Longer Active Ragini Carrillo MD Active DIFLUCAN 150 MG ORAL TABLET 1 tablet by mouth qod 2015 FLUCONAZOLE 93091136675 No Longer Active Efren Medel TRANSPORTATION MECHANIC Act mike AZITHROMYCIN 250 MG ORAL TABLET 2 po qd x 1 day, then 1 po q d x 4 days AZITHROMYCIN 51385385510 No Longer Active Efren flores TRANSPORTATION MECHANIC Active FLAGYL 500 MG ORAL TABLET 1 tablet by mouth bid 04/13 METRONIDAZOLE 23591730730 No Longer Active Checo Conklin MD Acti ve MAGNESIUM CITRATE 1.745 GM/30ML ORAL SOLUTION 150ml po BID P RN Constipation MAGNESIUM CITRATE 81165632840 No Longer Active Checo Conklin MD Active BACTROBAN 2 % EXTERNAL CREAM Apply to affected area BID for up to 10 days MUPIROCIN CALCIUM 25753908274 No Longer Active Checo Conklin MD Active HYDROCODONE-ACETAMINOPHEN 5-325 MG ORAL TABLET 1 tab b y mouth every 6 hours as needed HYDROCODONE-ACETAMINOPHEN 04685180610 No Longer Active Checo Conklin MD Active IBUPROFEN 800 MG ORAL TABLET 1 tab every 8 hours with food 03/20 IBUPROFEN 34398534977 No Longer Active Checo Conklin MD Active DIFLUCAN 150 MG ORAL TABLET 1 tablet by mouth if neede d, hold until symptoms start FLUCONAZOLE 47347748129 No Longer Active Checo Conklin MD Active BACTRIM DS 800-160 MG ORAL TABLET 1 tab by mouth twice daily 201 11/23/03 TRIMETHOPRIM-SULFAMETHOXAZOLE 77142409357 No Longer Active Estrella Mnédez LPN Active HYDROCODONE-ACETAMINOPHEN 5-325 MG ORAL TABLET 0.5 to 1 tab by mouth every 6 hours as needed HYDROCODONE-ACETAMINOPHEN 25259933998 No Longer Active Checo Conklin MD Active ONDANSETRON 8 MG ORAL TABLET DISINTEGRATING place one tablet on tongue and allow to dissolve every 6 hours as needed for vomitting ONDANSETRON 82600131261 No Longer Active Checo Conklin MD Activ e COMPRO 25 MG RECTAL SUPPOSITORY insert or apply one garza ppository rectally as directed every 12 hours as needed for nausea PROCHLORPERAZINE 44658310516 No Longer Active Checo Conklin MD A ctive SUMATRIPTAN SUCCINATE 100 MG ORAL TABLET Take one PRN for migran e SUMATRIPTAN SUCCINATE 12448286847 No Longer Active Checo Conklin MD Active TRAVEL SICKNESS 25 MG ORAL TABLET CHEWABLE chew and sw allow one tablet every 6 hours as needed MECLIZINE HCL 39255934247 No Longer A ctive Checo Conklin MD Active BUPROPION HCL ER (SR) 100 MG ORAL TABLET EXTENDED RELE ASE 12 HOUR take one tablet by mouth one time daily for one week then take 1 two times daily BUPROPION HCL 36231894604 No Longer Active Checo gallagher MD Active TERBINAFINE HCL 250 MG ORAL TABLET take one table PO one time da moises TERBINAFINE HCL 06585310865 No Longer Active Checo Conklin MD Active METOCLOPRAMIDE HCL 10 MG ORAL TABLET take one PO tid PRN nausea METOCLOPRAMIDE HCL 86573363131 No Longer Active Checo Conklin MD Active DICLOFENAC SODIUM 75 MG ORAL TABLET DELAYED RELEASE 1 tablet by mouth twice daily PRN Knee pain DICLOFENAC SODIUM 23469298236 No Longer Active Checo Conklin MD Active LAMISIL 250 MG ORAL TABLET 1 po qd TERBINAFI NE HCL 06647549884 No Longer Active Checo Conklin MD Active REGLAN 10 MG ORAL TABLET 1 po TID PRN Nausea 3 METOCLOPRAMIDE HCL 75059833664 No Longer Active Checo Conklin MD Active CELEXA 20 MG ORAL TABLET 1 tablet by mouth daily 09/26 CITALOPRAM HYDROBROMIDE 20399158052 No Longer Active Checo Conklin MD Active AZITHROMYCIN 250 MG ORAL TABLET 2 po qd x 1 day, then 1 po q d x 4 days AZITHROMYCIN 17936062506 No Longer Active Checo Ortiz MD Active HYDROCODONE-ACETAMINOPHEN 5-325 MG ORAL TABLET 1 po q 6hr PRN Pa in HYDROCODONE-ACETAMINOPHEN 46367245609 No Longer Active Lenora Conklin MD Active PHENAZOPYRIDINE HCL 200 MG ORAL TABLET take 1 tab po TID for bladder pain PHENAZOPYRIDINE HCL 56688090991 No Longer Active Joe Conklin MD Active CIPRO 500 MG ORAL TABLET 1 tablet by mouth twice daily CIPROFLOXACIN HCL 02730239501 No Longer Active Dangelo Rangel MD Active HYDROCODONE-ACETAMINOPHEN 5-325 MG ORAL TABLET 1/2 to 1 po q 4 hours prn cough HYDROCODONE-ACETAMINOPHEN 93280219687 No Longer Activ e Dangelo Rangel MD Active BACTRIM DS 800-160 MG ORAL TABLET 1 po BID x 7 days 29/04/10 SULFAMETHOXAZOLE-TRIMETHOPRIM 14998220869 No Longer Active Checo Conklin MD Active PREDNISONE 20 MG ORAL TABLET 2 tabs daily for 3 days, 1 tab daily for 3 days, 1/2 tab daily for 2 days PREDNISONE 98579358754 No Longer Active Checo Conklin MD Active TRIAMCINOLONE ACETONIDE 0.1 % EXTERNAL OINTMENT Apply to affected areas TID for up to 2 weeks TRIAMCINOLONE ACETONIDE 34118479833 No Longer Active Checo Conklin MD Active CEFDINIR 300 MG ORAL CAPSULE by mouth twice a day 2013 CEFDINIR 20608133954 No Longer Active Dangelo Rangel MD Acti ve BUPROPION HCL ER (SMOKING DET) 150 MG ORAL TABLET EXTE NDED RELEASE 12 HOUR 1 a day for 1 week then 1 twice a day BUPROPION HCL (SMOKING DETER) 71979108170 No Longer Active Checo Conklin MD Active CHANTIX STARTING MONTH KARTHIK 0.5 MG X 11 & 1 MG X 42 ORA L TABLET 0.5mg daily for 3 days, then 0.5mg BID for 4 days, then 1mg BID VARENICLINE TARTRATE 32719079167 No Longer Active Checo Conklin MD Activ e CONCERTA 18 MG ORAL TABLET EXTENDED RELEASE 1 po q a.m. METHYLPHENIDATE HCL 26827503291 No Longer Active Checo Conklin MD Active TRAZODONE HCL 100 MG ORAL TABLET 0.5 to 1 po qHS PRN Insomnia 20 30/07/08 TRAZODONE HCL 15170441877 No Longer Active Checo Conklin MD Active FIORICET 325-50-40 MG TAB 1 tablet by mouth four times daily as needed [id number] 80190322694 No Longer Active Checo Conklin MD Active PHENERGAN CREAM* 25mg applied to wrist q6hr PRN Nausea PHENERGAN CREAM* No Longer Active Checo Conklin MD A ctive FLONASE 50 MCG/ACT NASAL SUSPENSION 1 spray each nostril am and hs FLUTICASONE PROPIONATE 28274332259 No Longer Active Checo Conklin MD Active ANTIPYRINE-BENZOCAINE 5.4-1.4 % OTIC SOLUTION 1-2 drops in affec yohannes ear BENZOCAINE-ANTIPYRINE 36691131611 No Longer Active Checo Conklin MD Active CEFDINIR 300 MG ORAL CAPSULE 1 po bid CEFDINIR 79266452698 No Longer Active Checo Conklin MD Active PREDNISONE 20 MG ORAL TABLET 2 tabs daily for 3 days, 1 tab daily for 3 days, 1/2 tab daily for 2 days PREDNISONE 52224188610 No Longer Active Checo Conklin MD Active AZITHROMYCIN 250 MG ORAL TABLET 2 po qd x 1 day, then 1 po q d x 4 days AZITHROMYCIN 48522701927 No Longer Active Checo Ortiz MD Active PREDNISONE 20 MG ORAL TABLET 2 tabs daily for 3 days, 1 tab daily for 3 days, 1/2 tab daily for 2 days PREDNISONE 27753181677 No Longer Active Checo Conklin MD Active ZITHROMAX Z-KARTHIK 250 MG ORAL TABLET 2 today, then 1 daily for 4 d ays AZITHROMYCIN 21274302238 No Longer Active Paul Hamlin MD Active FOCALIN XR 10 MG ORAL CAPSULE EXTENDED RELEASE 24 HOUR 1 po q a. m. DEXMETHYLPHENIDATE HCL 66746469208 No Longer Active Paul Hamlin MD Active PERCOCET 10-325 MG ORAL TABLET 1 tablet every 6 hours as needed for pain OXYCODONE-ACETAMINOPHEN 55464332849 No Longer Active Paul Hamlin MD Active LORTAB 5-500 MG ORAL TABLET 1/2 to 1 tablet by mouth e very 4 hours as needed for pain HYDROCODONE-ACETAMINOPHEN 59947394868 No Longer Active Checo Conklin MD Active FOCALIN XR 15 MG ORAL CAPSULE EXTENDED RELEASE 24 HOUR 1 po q a. m. DEXMETHYLPHENIDATE HCL 16245206808 No Longer Active Checo Conklin MD Active ZOFRAN ODT 4 MG ORAL TABLET DISINTEGRATING 1 po q6hr PRN Nausea ONDANSETRON 90419518998 No Longer Active Checo Conklin MD Active PERCOCET 5-325 MG ORAL TABLET 1 tablet by mouth every 6 hour s as needed OXYCODONE-ACETAMINOPHEN 19859420279 No Longer Active Checo Conklin MD Active PYRIDIUM 200 MG ORAL TABLET take 1 tab po TID prn urinary pain. PHENAZOPYRIDINE HCL 04440238900 No Longer Active Checo Joshua Active FLUCONAZOLE 150 MG ORAL TABLET take 1 tab po qday once FLUCONAZOLE 44020726567 No Longer Active Dangelo Rangel MD Acti ve CIPRO 500 MG ORAL TABLET 1 tablet by mouth twice daily CIPROFLOXACIN HCL 41858341609 No Longer Active Dangelo Rangel MD Active PYRIDIUM 200 MG ORAL TABLET take 1 tab po TID prn urinary pain. PYRIDIUM 200 MG ORAL TABLET 2005555 PHENAZOPYRIDINE HCL Inactive PERCOCET 5-325 MG ORAL TABLET 1 tablet by mouth every 6 hour s as needed PERCOCET 5-325 MG ORAL TABLET 8321469 OXYCODONE-ACETAMINOPHEN Inactive ZOFRAN ODT 4 MG ORAL [...] for pain PERCOCET 10-325 MG ORAL TABLET 0726053 OXYCODONE-ACETAMI NOPHEN Inactive FOCALIN XR 10 MG ORAL CAPSULE EXTENDED RELEASE 24 HOUR 1 po q a. m. FOCALIN XR 10 MG ORAL CAPSULE EXTENDED RELEASE 24 HOUR DEXMETHYLPHENIDATE HCL Inactive CEFDINIR 300 MG ORAL CAPSULE 1 po bid CEFDINI R 300 MG ORAL CAPSULE 171024 CEFDINIR Inactive ANTIPYRINE-BENZOCAINE 5.4-1.4 % OTIC SOLUTION [...] 30/07/08 TRAZODONE HCL 100 MG ORAL TABLET 370171 TRAZODONE HCL Inactive CONCERTA 18 MG ORAL [...] cough HYDROCODONE-ACETAMINOPHEN 5-325 MG ORAL TABLET 8 15986 HYDROCODONE-ACETAMINOPHEN Inactive PHENAZOPYRIDINE HCL 200 MG ORAL TABLET take 1 tab po TID for bladder pain PHENAZOPYRIDINE HCL 200 MG ORAL TABLET 8562046 PHENAZOPYRIDINE HCL Inactive HYDROCODONE-ACETAMINOPHEN 5-325 MG ORAL TABLET 1 po q 6hr PRN Pa in HYDROCODONE-ACETAMINOPHEN 5-325 MG ORAL TABLET 568394 HYDROCODONE-ACETAMINOPHEN Inactive CELEXA 20 MG ORAL TABLET 1 tablet by mouth daily 09/26 CELEXA 20 MG ORAL TABLET 456638 CITALOPRAM HYDROBROMIDE Inactive REGLAN 10 MG ORAL TABLET 1 po TID PRN Nausea 3 REGLAN 10 MG ORAL TABLET 988783 METOCLOPRAMIDE HCL Inactive LAMISIL 250 MG ORAL TABLET 1 po qd L AMISIL 250 MG ORAL TABLET 057420 TERBINAFINE HCL Inactive DICLOFENAC SODIUM 75 MG ORAL TABLET DELAYED RELEASE 1 tablet by mouth twice daily PRN Knee pain DICLOFENAC SODIUM 75 MG ORAL TABLET DELAYED RELEASE 766516 DICLOFENAC SODIUM Inactive METOCLOPRAMIDE HCL 10 MG ORAL TABLET take one PO tid PRN nausea METOCLOPRAMIDE HCL 10 MG ORAL TABLET 024413 METOCLOPRAM ZACH HCL Inactive TERBINAFINE HCL 250 MG ORAL TABLET take one table PO one time da moises TERBINAFINE HCL 250 MG ORAL TABLET 796007 TERBINAFINE H CL Inactive BUPROPION HCL ER [...] SICKNESS 25 M G ORAL TABLET CHEWABLE 247759 MECLIZINE HCL Inactive SUMATRIPTAN SUCCINATE 100 MG ORAL TABLET Take one PRN for migran e SUMATRIPTAN SUCCINATE 100 MG ORAL TABLET 970864 SUMATRIPTAN SUCCINATE Inactive COMPRO 25 MG RECTAL SUPPOSITORY insert or apply one garza ppository rectally as directed every 12 hours as needed for nausea COMPRO 25 MG RECTAL SUPPOSITORY 732170 PROCHLORPERAZINE Inactive ONDANSETRON 8 MG ORAL TABLET DISINTEGRATING place one tablet on tongue and allow to dissolve every 6 hours as needed for vomitting ONDANSETRON 8 MG ORAL TABLET DISINTEGRATING 817386 ONDANSETRON Inactive HYDROCODONE-ACETAMINOPHEN 5-325 MG ORAL TABLET 0.5 to 1 tab by mouth every 6 hours as needed HYDROCODONE-ACETAMIN OPHEN 5-325 MG ORAL TABLET 651390 HYDROCODONE-ACETAMINOPHEN Inactive BACTRIM DS 800-160 MG ORAL TABLET 1 tab by mouth twice daily 201 11/23/03 BACTRIM DS 800-160 MG ORAL TABLET 169907 TRIMETHOPRIM-SULFAMETHOXAZOLE Inactive DIFLUCAN 150 MG ORAL TABLET [...] as needed HYDROCODONE-ACETAMINOPHEN 5-325 MG ORAL TABLET 427235 HYDROCODONE-ACETAMINOPHEN Inactive BACTROBAN 2 % EXTERNAL CREAM Apply to affected area BID for up to 10 days BACTROBAN 2 % EXTERNAL CREAM MUPIROCIN CA LCIUM Inactive MAGNESIUM CITRATE 1.745 GM/30ML ORAL SOLUTION 150ml po BID P RN Constipation MAGNESIUM CITRATE 1.745 GM/30ML ORAL SOLUTION 10 65241 MAGNESIUM CITRATE Inactive DIFLUCAN 150 MG ORAL TABLET 1 tablet by mouth qod 2015 DIFLUCAN 150 MG ORAL TABLET 555241 FLUCONAZOLE Inactive BACTRIM DS 800-160 MG ORAL TABLET 1 tab by mouth twice daily 201 12/19/26 BACTRIM DS 800-160 MG ORAL TABLET 531149 TRIMETHOPRIM-SULFAMETHOXAZOLE Inactive CLARITIN 10 MG ORAL TABLET 1 tablet by mouth daily as needed for allergies CLARITIN 10 MG ORAL TABLET 367535 LORATADINE I nactive FLUTICASONE PROPIONATE 50 MCG/ACT NASAL SUSPENSION 2 s prays/nostril qd PRN Congestion/Allergies FLUTICASONE PROPION ATE 50 MCG/ACT NASAL SUSPENSION 7775736 FLUTICASONE PROPIONATE Inactive MIRALAX ORAL POWDER 8.5 to 17g po qd PRN Constipation MIRALAX ORAL POWDER 653336 POLYETHYLENE GLYCOL 3350 Inactive IBUPROFEN 800 MG ORAL TABLET 1 tab every 8 hours as needed for p ain IBUPROFEN 800 MG ORAL TABLET 550735 IBUPROFEN [place] ctive HYDROCHLOROTHIAZIDE 12.5 MG ORAL CAPSULE 1 po qd PRN Edema 01/10 HYDROCHLOROTHIAZIDE 12.5 MG ORAL CAPSULE 756235 HYDROCH LOROTHIAZIDE Inactive KLOR-CON 10 10 MEQ ORAL TABLET EXTENDED RELEASE 1 daily with furosemide KLOR-CON 10 10 MEQ ORAL TABLET EXTENDED RELEASE POTASSIUM CHLORIDE Inactive FUROSEMIDE 20 MG ORAL TABLET 1 daily for swelling 2018 FUROSEMIDE 20 MG ORAL TABLET 168356 FUROSEMIDE Inactive SIMVASTATIN 20 MG ORAL TABLET 1 po qd SIMVASTATIN 20 MG ORAL TABLET 280698 SIMVASTATIN Inactive FOCALIN XR 10 MG ORAL CAPSULE EXTENDED RELEASE 24 HOUR 1 po q a. m. FOCALIN XR 10 MG ORAL CAPSULE EXTENDED RELEASE 24 HOUR DEXMETHYLPHENIDATE HCL Inactive PAROXETINE HCL 40 MG ORAL TABLET 1 po qd PAROXETINE HCL 40 MG ORAL TABLET 8330747 PAROXETINE HCL Inactive XANAX 0.5 MG ORAL TABLET 1 po BID PRN anxiety XANAX 0.5 MG ORAL TABLET 554485 ALPRAZOLAM Inactive AMBIEN 5 MG ORAL TABLET 1 po qHS PRN Insomnia AMBIEN 5 MG ORAL TABLET 881519 ZOLPIDEM TARTRATE Inactive PROZAC 10 MG ORAL CAPSULE 1 PO Daily ME OZAC 10 MG ORAL CAPSULE 392031 FLUOXETINE HCL Inactive CIPRO 500 MG ORAL TABLET 1 tablet by mouth twice daily CIPRO 500 MG ORAL TABLET 533663 CIPROFLOXACIN HCL Inactive FLUCONAZOLE 150 MG ORAL TABLET take 1 tab po qday once FLUCONAZOLE 150 MG ORAL TABLET 520191 FLUCONAZOLE Inactive ZITHROMAX Z-KARTHIK 250 MG ORAL TABLET 2 today, then 1 daily for 4 d ays ZITHROMAX Z-KARTHIK 250 MG ORAL TABLET 444561 AZITHROMYCIN Inactive PREDNISONE 20 MG ORAL TABLET 2 tabs daily for 3 days, 1 tab daily for 3 days, 1/2 tab daily for 2 days PREDNISONE 20 MG ORAL T ABLET 408289 PREDNISONE Inactive AZITHROMYCIN 250 MG ORAL TABLET 2 po qd x 1 day, then 1 po q d x 4 days AZITHROMYCIN 250 MG ORAL TABLET 926750 AZITHROMY SPARKLE Inactive PREDNISONE 20 MG ORAL TABLET 2 tabs daily for 3 days, 1 tab daily for 3 days, 1/2 tab daily for 2 days PREDNISONE 20 MG ORAL TABLET 191188 PREDNISONE Inactive CEFDINIR 300 MG ORAL CAPSULE by mouth twice a day 2013 CEFDINIR 300 MG ORAL CAPSULE 411459 CEFDINIR Inactive TRIAMCINOLONE ACETONIDE 0.1 % EXTERNAL OINTMENT Apply to affected areas TID for up to 2 weeks TRIAMCINOLONE ACETON ZACH 0.1 % EXTERNAL OINTMENT 5297926 TRIAMCINOLONE ACETONIDE Inactive PREDNISONE 20 MG ORAL TABLET 2 tabs daily for 3 days, 1 tab daily for 3 days, 1/2 tab daily for 2 days PREDNISONE 20 MG ORAL T ABLET 630159 PREDNISONE Inactive BACTRIM DS 800-160 MG ORAL TABLET 1 po BID x 7 days 29/04/10 BACTRIM DS 800-160 MG ORAL TABLET 180753 SULFAMETHOXAZOLE-TRIMETHOP RIM Inactive CIPRO 500 MG ORAL TABLET 1 tablet by mouth twice daily CIPRO 500 MG ORAL TABLET 619829 CIPROFLOXACIN HCL Inactive AZITHROMYCIN 250 MG ORAL TABLET 2 po qd x 1 day, then 1 po q d x 4 days AZITHROMYCIN 250 MG ORAL TABLET 113504 AZITHROMY SPARKLE Inactive FLAGYL 500 MG ORAL TABLET 1 tablet by mouth bid 04/13 FLAGYL 500 MG ORAL TABLET 311596 METRONIDAZOLE Inactive AZITHROMYCIN 250 MG ORAL TABLET 2 po qd x 1 day, then 1 po q d x 4 days AZITHROMYCIN 250 MG ORAL TABLET 638485 AZITHROMY SPARKLE Inactive AMOXICILLIN 500 MG ORAL CAPSULE 2 po BID x 10 days 201 01/15/27 AMOXICILLIN 500 MG ORAL CAPSULE 575812 AMOXICILLIN Inactive AMOXICILLIN 500 MG ORAL CAPSULE 2 po BID x 14 days for [facility] P[facility] AMOXICILLIN 500 MG ORAL CAPSULE 491196 AMOXICILLIN Inactive CLARITHROMYCIN 500 MG ORAL TABLET 1 tab po BID x 14 days CLARITHROMYCIN 500 MG ORAL TABLET 799942 CLARITHROMYCIN Inacti ve FLAGYL 500 MG ORAL TABLET 1 tablet by mouth bid 08/29 FLAGYL 500 MG ORAL TABLET 261363 METRONIDAZOLE Inactive PROTONIX 40 MG ORAL TABLET DELAYED RELEASE 1 pill by m outh daily, for acid reflux PROTONIX 40 MG ORAL TABLET DELAYED RELEAS E 021110 PANTOPRAZOLE SODIUM Inactive Immunizations Vaccine Administration Date [...] Panel - Chemistry sodium, serum 142 mmol/L 111-176 5250/07/22 carbon dioxide, venous blood 26.3 mmol/L 21.0-32 [...] 0.80 mg/dL 0.00-1.00 cholesterol, serum 172 mg/dL 158-110 0435/07/22 triglyceride, serum, fasting 222 mg/dL 30-200 HDL [...] 0-29 Encounters Code Encounter Date Provider Facility CPT-67535 Level 3 Est. Patient 06:02:19 CDT Radha Dic estrella TRANSPORTATION MECHANIC-C [facility] CPT-75218 Level 3 Est. Patient 09:11:53 CDT Radha Dic k TRANSPORTATION MECHANIC-C [facility] CPT-65358 Level 3 Est. Patient 16:46:51 CDT Thomas reynolds DO [facility] CPT-30071 [id number] Vst-Est Level III 14:40:49 CDT Paul Hamlin MD [facility] CPT-39154 Level 4 Est. Patient 11:08:43 CDT Checo Conklin MD [facility] CPT-63776 [id number] Vst-Est Level III 09:37:41 CDT Dangelo Rangel MD [facility] CPT-94703 Level 4 Est. Patient 08:57:51 DATABASES COMPUTER CONSULTANT Checo Conklin MD [facility] CPT-58512 Level 3 Est. Patient 11:24:55 DATABASES COMPUTER CONSULTANT Efren almendarez [facility] CPT-06256 Level 3 Est. Patient 13:05:44 CDT Paul Hamlin MD [facility] CPT-54372 Level 3 Est. Patient 11:29:55 CDT Checo Conklin MD [facility] CPT-66811 Level 4 Est. Patient 11:08:12 DATABASES COMPUTER CONSULTANT Checo Conklin MD [facility] CPT-42557 Level 4 Est. Patient 16:06:48 DATABASES COMPUTER CONSULTANT Checo Conklin MD [facility] CPT-59872 Level 3 Est. Patient 09:11:49 CDT Efren almendarez [facility] CPT-94347 Level 2 Est. Patient 19:53:27 CDT Tanner hill MD [facility] CPT-80317 Level 3 Est. Patient 09:15:34 CDT Efren almendarez [facility] CPT-86086 Level 3 Est. Patient 11:28:51 DATABASES COMPUTER CONSULTANT Efren almendarez [facility] CPT-46875 Level 4 Est. Patient 13:55:46 DATABASES COMPUTER CONSULTANT Checo Conklin MD [facility] CPT-62889 Level 4 Est. Patient 17:10:53 CDT Checo Conklin MD [facility] CPT-20163 Level 3 Est. Patient 15:56:22 CDT Checo Conklin MD [facility] CPT-49612 Level 3 Est. Patient 15:29:07 CDT Checo Conklin MD [facility] CPT-19210 Level 3 Est. Patient 14:38:41 CDT Checo Conklin MD [facility] CPT-24783 Level 3 Est. Patient 15:22:03 DATABASES COMPUTER CONSULTANT Thomas reynolds DO [facility] CPT-83532 Level 3 Est. Patient 13:34:17 DATABASES COMPUTER CONSULTANT Checo Conklin MD [facility] CPT-11540 Level 3 Est. Patient 12:29:32 CDT Dangelo arroyo MD [facility] CPT-48339 Level 3 Est. Patient 16:53:02 CDT Checo Conklin MD [facility] CPT-29883 Level 3 Est. Patient 16:37:13 CDT Checo Conklin MD [facility] CPT-43625 Level 3 Est. Patient 16:16:59 CDT Paul Hamlin MD [facility] CPT-77560 Level 3 Est. Patient 14:20:13 CDT Dangelo arroyo MD [facility] CPT-90076 Level 4 Est. Patient 11:29:33 CDT Checo Conklin MD [facility] CPT-04820 Level 3 Est. Patient 17:08:31 CDT Checo Conklin MD [facility] CPT-60904 Level 3 Est. Patient 16:50:42 DATABASES COMPUTER CONSULTANT Checo Conklin MD [facility] CPT-63683 Level 4 Est. Patient 09:26:08 DATABASES COMPUTER CONSULTANT Checo Conklin MD [facility] CPT-13070 Level 3 Est. Patient 11:37:10 CDT Checo Conklin MD [facility] CPT-14081 Level 4 Est. Patient 14:07:38 CDT Checo Conklin MD [facility] CPT-82075 Level 3 Est. Patient 09:54:41 CDT Checo Conklin MD [facility] CPT-56494 Level 3 Est. Patient 11:10:54 CDT Paul Hamlin MD [facility] CPT-01553 Level 3 Est. 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 Patient 11:04:11 [employer]PUT[employer] CONSULTANT Checo Conklin MD [facility] CPT-38757 Level 3 Est. Patient 17:09:26 CDT Dangelo arroyo MD [facility] CPT-64409 Level 3 Est. Patient 16:54:37 CDT Checo Conklin MD [facility] Procedures Code Procedure Name Date Entry Date Standard Desc ription CPT-54216 Abx/Therapy Injection 09:52:15 CDT CPT-04066 Abx/Therapy Injection 18:17:48 CDT CPT-J2550 Phenergan 25 mg (Promethazine) 16:48:23 CDT CPT-J1885 Toradol 60 mg 16:48:23 CDT CPT-93202 Wrist, right, comp 3V - XRAY USE ONLY 09:24:31 CDT CPT-10584 Abd compl w upright - XRAY USE ONLY 1 1:36:54 [employer] CPT-87412 UA w micro - LAB USE ONLY 17:06:46 CDT 2015 CPT-89482 BHCG Qual - LAB USE ONLY 17:06:46 CDT 05/06 CPT-33379 CMP - LAB USE ONLY 17:06:46 CDT CPT-68790 CBC with Diff - LAB USE ONLY 17:06:45 CDT 2 CPT-45538 Venipuncture Draw Fee 17:06:45 CDT CPT-LR Lesion Removal 19:53:27 CDT CPT-OV Office Visit 11:31:28 CDT CPT-66552 Tubersol 09:39:29 CDT CPT-J2550 Phenergan 25 mg (Promethazine) 13:59:02 [employer]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
--- OUTSIDE RECORDS SUMMARY | 2019-09-29 01:09 | XMS REPORT | Clinical Summary ---
Author Author Admin, Bethany Gonzales Organization [employer] Address Unknown Phone Unavailable Allergies, Adverse Reactions, [...] 2 weeks if needed CITALOPRAM HYDRO BROMIDE 09632756382 Active 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 APRN-C Active PROZAC 10 MG ORAL CAPSULE 1 PO Daily FLUOXETINE HCL 05698447519 No Longer Active 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 APRN-Majo Active VYVANSE 30 MG ORAL CAPSULE 1 PO daily LISDEXAMF ETAMINE DIMESYLATE 52850919157 Active 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 LEAF COVERER-C Active XANAX 0.5 MG ORAL TABLET 1 tablet PO BID; PRN A LPRAZOLAM 07135033369 Active Radhasantos Whitaker LEAF COVERER-C Active SIMVASTATIN 20 MG ORAL TABLET 1 tablet PO daily SI MVASTATIN 98089104046 Active Radhasantos Whitaker LEAF COVERER-C Active IBUPROFEN 800 MG ORAL TABLET 1 tablet PO q8hr PRN IBUPROFEN 89557815751 Active Radhasantos Whitaker LEAF COVERER-C Active AMBIEN 5 MG ORAL TABLET 1 tablet PO once daily; PRN ZOLPIDEM TARTRATE 83285174646 Active 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 LEAF COVERER-C Active ALBUTEROL SULFATE HFA 108 (90 BASE) MCG/ACT INHALATION AEROSOL SOLUTION 2 puffs, INH, q4hr PRN ALBUTEROL SULFATE 07859485814 Active Radha Sherman A PRN-C Active AMBIEN 5 MG ORAL TABLET 1 po qHS PRN Insomnia ZOLPIDEM TARTRATE 21552492759 No Longer Active 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 APRN-C Active XANAX 0.5 MG ORAL TABLET 1 po BID PRN anxiety A LPRAZOLAM 85739504827 No Longer Active 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 LEAF COVERER-C Active PAROXETINE HCL 40 MG ORAL TABLET 1 po qd PAR OXETINE HCL 87794148007 No Longer Active 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 LEAF COVERER-C Active FOCALIN XR 10 MG ORAL CAPSULE EXTENDED RELEASE 24 HOUR 1 po q a. m. DEXMETHYLPHENIDATE HCL 86383609654 No Longer Active Radha Low LEAF COVERER-C Active SIMVASTATIN 20 MG ORAL TABLET 1 po qd SIMVAS TATIN 26541550203 No Longer Active 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 LEAF COVERER-C Active FUROSEMIDE 20 MG ORAL TABLET 1 daily for swelling 2018 FUROSEMIDE 19184385656 No Longer Active 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 LEAF COVERER-C Active KLOR-CON 10 10 MEQ ORAL TABLET EXTENDED RELEASE 1 daily with furosemide POTASSIUM CHLORIDE 75947641563 No Longer Active 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 LEAF COVERER-C Active HYDROCHLOROTHIAZIDE 12.5 MG ORAL CAPSULE 1 po qd PRN Edema 01/10 HYDROCHLOROTHIAZIDE 83305575510 No Longer Active Paul Hamlin MD Active IBUPROFEN 800 MG ORAL TABLET 1 tab every 8 hours as needed for p ain IBUPROFEN 74692407174 No Longer Active Paul Hamlin MD Active MIRALAX ORAL POWDER 8.5 to 17g po qd PRN Constipation POLYETHYLENE GLYCOL 3350 03818144746 No Longer Active Checo Conklin MD Active PROTONIX 40 MG ORAL TABLET DELAYED RELEASE [address] [facility] daily, for acid reflux PANTOPRAZOLE SODIUM 95296317641 No Longer Activ e Corry Méndez LPN Active FLAGYL 500 MG ORAL TABLET 1 tablet by mouth bid 08/29 METRONIDAZOLE 98488034972 No Longer Active Corry Méndez LPN Active CLARITHROMYCIN 500 MG ORAL TABLET 1 tab po BID x 14 days CLARITHROMYCIN 60949320019 No Longer Active Corry Méndez LPN Active AMOXICILLIN 500 MG ORAL CAPSULE 2 po BID x 14 days for [facility] P[facility] AMOXICILLIN 55739292269 No Longer Active Corry Méndez LPN Active FLUTICASONE PROPIONATE 50 MCG/ACT NASAL SUSPENSION 2 s prays/nostril qd PRN Congestion/Allergies FLUTICASONE PROPIONATE 2975823653 9 No Longer Active Checo Conklin MD Active AMOXICILLIN 500 MG ORAL CAPSULE 2 po BID x 10 days 201 01/15/27 AMOXICILLIN 34937411406 No Longer Active Checo Conklin MD Activ e CLARITIN 10 MG ORAL TABLET 1 tablet by mouth daily as needed for allergies LORATADINE 31924869936 No Longer Active Checo Ortiz MD Active BACTRIM DS 800-160 MG ORAL TABLET 1 tab by mouth twice daily 201 12/19/26 TRIMETHOPRIM-SULFAMETHOXAZOLE 93016132631 No Longer Active Ragini Carrillo MD Active DIFLUCAN 150 MG ORAL TABLET 1 tablet by mouth qod 2015 FLUCONAZOLE 59591591628 No Longer Active Efren Medel LEAF COVERER Act mike AZITHROMYCIN 250 MG ORAL TABLET 2 po qd x 1 day, then 1 po q d x 4 days AZITHROMYCIN 89610710586 No Longer Active Efren flores LEAF COVERER Active FLAGYL 500 MG ORAL TABLET 1 tablet by mouth bid 04/13 METRONIDAZOLE 11005572403 No Longer Active Checo Conklin MD Acti ve MAGNESIUM CITRATE 1.745 GM/30ML ORAL SOLUTION 150ml po BID P RN Constipation MAGNESIUM CITRATE 11872437458 No Longer Active Checo Conklin MD Active BACTROBAN 2 % EXTERNAL CREAM Apply to affected area BID for up to 10 days MUPIROCIN CALCIUM 76527031053 No Longer Active Checo Conklin MD Active HYDROCODONE-ACETAMINOPHEN 5-325 MG ORAL TABLET 1 tab b y mouth every 6 hours as needed HYDROCODONE-ACETAMINOPHEN 02146186577 No Longer Active Checo Conklin MD Active IBUPROFEN 800 MG ORAL TABLET 1 tab every 8 hours with food 03/20 IBUPROFEN 76694683429 No Longer Active Checo Conklin MD Active DIFLUCAN 150 MG ORAL TABLET 1 tablet by mouth if neede d, hold until symptoms start FLUCONAZOLE 32657698893 No Longer Active Checo Conklin MD Active BACTRIM DS 800-160 MG ORAL TABLET 1 tab by mouth twice daily 201 11/23/03 TRIMETHOPRIM-SULFAMETHOXAZOLE 32382225173 No Longer Active Bonnie Méndez LPN Active HYDROCODONE-ACETAMINOPHEN 5-325 MG ORAL TABLET 0.5 to 1 tab by mouth every 6 hours as needed HYDROCODONE-ACETAMINOPHEN 96154332008 No Longer Active Checo Conklin MD Active ONDANSETRON 8 MG ORAL TABLET DISINTEGRATING place one tablet on tongue and allow to dissolve every 6 hours as needed for vomitting ONDANSETRON 43253716726 No Longer Active Checo Conklin MD Activ e COMPRO 25 MG RECTAL SUPPOSITORY insert or apply one garza ppository rectally as directed every 12 hours as needed for nausea PROCHLORPERAZINE 81424970688 No Longer Active Checo Conklin MD A ctive SUMATRIPTAN SUCCINATE 100 MG ORAL TABLET Take one PRN for migran e SUMATRIPTAN SUCCINATE 99495013508 No Longer Active Checo Conklin MD Active TRAVEL SICKNESS 25 MG ORAL TABLET CHEWABLE chew and sw allow one tablet every 6 hours as needed MECLIZINE HCL 59118025880 No Longer A ctive Checo Conklin MD Active BUPROPION HCL ER (SR) 100 MG ORAL TABLET EXTENDED RELE ASE 12 HOUR take one tablet by mouth one time daily for one week then take 1 two times daily BUPROPION HCL 92530805275 No Longer Active Checo gallagher MD Active TERBINAFINE HCL 250 MG ORAL TABLET take one table PO one time da moises TERBINAFINE HCL 32739408294 No Longer Active Checo Conklin MD Active METOCLOPRAMIDE HCL 10 MG ORAL TABLET take one PO tid PRN nausea METOCLOPRAMIDE HCL 25354844490 No Longer Active Checo Conklin MD Active DICLOFENAC SODIUM 75 MG ORAL TABLET DELAYED RELEASE 1 tablet by mouth twice daily PRN Knee pain DICLOFENAC SODIUM 85893614673 No Longer Active Checo Conklin MD Active LAMISIL 250 MG ORAL TABLET 1 po qd TERBINAFI NE HCL 37227121068 No Longer Active Checo Conklin MD Active REGLAN 10 MG ORAL TABLET 1 po TID PRN Nausea 3 METOCLOPRAMIDE HCL 89170557254 No Longer Active Checo Conklin MD Active CELEXA 20 MG ORAL TABLET 1 tablet by mouth daily 09/26 CITALOPRAM HYDROBROMIDE 24500783092 No Longer Active Checo Conklin MD Active AZITHROMYCIN 250 MG ORAL TABLET 2 po qd x 1 day, then 1 po q d x 4 days AZITHROMYCIN 87516153945 No Longer Active Checo Ortiz MD Active HYDROCODONE-ACETAMINOPHEN 5-325 MG ORAL TABLET 1 po q 6hr PRN Pa in HYDROCODONE-ACETAMINOPHEN 06939475747 No Longer Active Lenora Conklin MD Active PHENAZOPYRIDINE HCL 200 MG ORAL TABLET take 1 tab po TID for bladder pain PHENAZOPYRIDINE HCL 13543739798 No Longer Active Joe Conklin MD Active CIPRO 500 MG ORAL TABLET 1 tablet by mouth twice daily CIPROFLOXACIN HCL 94119793448 No Longer Active Dangelo Rangel MD Active HYDROCODONE-ACETAMINOPHEN 5-325 MG ORAL TABLET 1/2 to 1 po q 4 hours prn cough HYDROCODONE-ACETAMINOPHEN 03614225155 No Longer Activ e Dangelo Rangel MD Active BACTRIM DS 800-160 MG ORAL TABLET 1 po BID x 7 days 29/04/10 SULFAMETHOXAZOLE-TRIMETHOPRIM 44380646911 No Longer Active Checo Conklin MD Active PREDNISONE 20 MG ORAL TABLET 2 tabs daily for 3 days, 1 tab daily for 3 days, 1/2 tab daily for 2 days PREDNISONE 59434575071 No Longer Active Checo Conklin MD Active TRIAMCINOLONE ACETONIDE 0.1 % EXTERNAL OINTMENT Apply to affected areas TID for up to 2 weeks TRIAMCINOLONE ACETONIDE 02054033907 No Longer Active Checo Conklin MD Active CEFDINIR 300 MG ORAL CAPSULE by mouth twice a day 2013 CEFDINIR 74198079448 No Longer Active Dangelo Rangel MD Acti ve BUPROPION HCL ER (SMOKING DET) 150 MG ORAL TABLET EXTE NDED RELEASE 12 HOUR 1 a day for 1 week then 1 twice a day BUPROPION HCL (SMOKING DETER) 77248044992 No Longer Active Checo Conklin MD Active CHANTIX STARTING MONTH KARTHIK 0.5 MG X 11 & 1 MG X 42 ORA L TABLET 0.5mg daily for 3 days, then 0.5mg BID for 4 days, then 1mg BID VARENICLINE TARTRATE 94189878009 No Longer Active Checo Conklin MD Activ e CONCERTA 18 MG ORAL TABLET EXTENDED RELEASE 1 po q a.m. METHYLPHENIDATE HCL 34390666604 No Longer Active Checo Conklin MD Active TRAZODONE HCL 100 MG ORAL TABLET 0.5 to 1 po qHS PRN Insomnia 20 30/07/08 TRAZODONE HCL 43141362793 No Longer Active Checo Conklin MD Active FIORICET 325-50-40 MG TAB 1 tablet by mouth four times daily as needed [id number] 88047529571 No Longer Active Checo Conklin MD Active PHENERGAN CREAM* 25mg applied to wrist q6hr PRN Nausea PHENERGAN CREAM* No Longer Active Checo Conklin MD A ctive FLONASE 50 MCG/ACT NASAL SUSPENSION 1 spray each nostril am and hs FLUTICASONE PROPIONATE 43115120513 No Longer Active Checo Conklin MD Active ANTIPYRINE-BENZOCAINE 5.4-1.4 % OTIC SOLUTION 1-2 drops in affec yohannes ear BENZOCAINE-ANTIPYRINE 81628873465 No Longer Active Checo Conklin MD Active CEFDINIR 300 MG ORAL CAPSULE 1 po bid CEFDINIR 60524648983 No Longer Active Checo Conklin MD Active PREDNISONE 20 MG ORAL TABLET 2 tabs daily for 3 days, 1 tab daily for 3 days, 1/2 tab daily for 2 days PREDNISONE 48413317599 No Longer Active Checo Conklin MD Active AZITHROMYCIN 250 MG ORAL TABLET 2 po qd x 1 day, then 1 po q d x 4 days AZITHROMYCIN 12102956872 No Longer Active Checo Ortiz MD Active PREDNISONE 20 MG ORAL TABLET 2 tabs daily for 3 days, 1 tab daily for 3 days, 1/2 tab daily for 2 days PREDNISONE 60093251495 No Longer Active Checo Conklin MD Active ZITHROMAX Z-KARTHKI 250 MG ORAL TABLET 2 today, then 1 daily for 4 d ays AZITHROMYCIN 64404638450 No Longer Active Paul Hamlin MD Active FOCALIN XR 10 MG ORAL CAPSULE EXTENDED RELEASE 24 HOUR 1 po q a. m. DEXMETHYLPHENIDATE HCL 50257700610 No Longer Active Paul Hamlin MD Active PERCOCET 10-325 MG ORAL TABLET 1 tablet every 6 hours as needed for pain OXYCODONE-ACETAMINOPHEN 63629425427 No Longer Active Paul Hamlin MD Active LORTAB 5-500 MG ORAL TABLET 1/2 to 1 tablet by mouth e very 4 hours as needed for pain HYDROCODONE-ACETAMINOPHEN 61902354879 No Longer Active Checo Conklin MD Active FOCALIN XR 15 MG ORAL CAPSULE EXTENDED RELEASE 24 HOUR 1 po q a. m. DEXMETHYLPHENIDATE HCL 38591345639 No Longer Active Checo Conklin MD Active ZOFRAN ODT 4 MG ORAL TABLET DISINTEGRATING 1 po q6hr PRN Nausea ONDANSETRON 16125986501 No Longer Active Checo Conklin MD Active PERCOCET 5-325 MG ORAL TABLET 1 tablet by mouth every 6 hour s as needed OXYCODONE-ACETAMINOPHEN 19428979033 No Longer Active Checo Conklin MD Active PYRIDIUM 200 MG ORAL TABLET take 1 tab po TID prn urinary pain. PHENAZOPYRIDINE HCL 89707824162 No Longer Active Checo Joshua Active FLUCONAZOLE 150 MG ORAL TABLET take 1 tab po qday once FLUCONAZOLE 30119308094 No Longer Active Dangelo Rangel MD Acti ve CIPRO 500 MG ORAL TABLET 1 tablet by mouth twice daily CIPROFLOXACIN HCL 06401095749 No Longer Active Dangelo Rangel MD Active PYRIDIUM 200 MG ORAL TABLET take 1 tab po TID prn urinary pain. PYRIDIUM 200 MG ORAL TABLET 1671689 PHENAZOPYRIDINE HCL Inactive PERCOCET 5-325 MG ORAL TABLET 1 tablet by mouth every 6 hour s as needed PERCOCET 5-325 MG ORAL TABLET 3247164 OXYCODONE-ACETAMINOPHEN Inactive ZOFRAN ODT 4 MG ORAL [...] for pain PERCOCET 10-325 MG ORAL TABLET 7101209 OXYCODONE-ACETAMI NOPHEN Inactive FOCALIN XR 10 MG ORAL CAPSULE EXTENDED RELEASE 24 HOUR 1 po q a. m. FOCALIN XR 10 MG ORAL CAPSULE EXTENDED RELEASE 24 HOUR DEXMETHYLPHENIDATE HCL Inactive CEFDINIR 300 MG ORAL CAPSULE 1 po bid CEFDINI R 300 MG ORAL CAPSULE 967638 CEFDINIR Inactive ANTIPYRINE-BENZOCAINE 5.4-1.4 % OTIC SOLUTION [...] 30/07/08 TRAZODONE HCL 100 MG ORAL TABLET 058587 TRAZODONE HCL Inactive CONCERTA 18 MG ORAL [...] cough HYDROCODONE-ACETAMINOPHEN 5-325 MG ORAL TABLET 8 06499 HYDROCODONE-ACETAMINOPHEN Inactive PHENAZOPYRIDINE HCL 200 MG ORAL TABLET take 1 tab po TID for bladder pain PHENAZOPYRIDINE HCL 200 MG ORAL TABLET 7200629 PHENAZOPYRIDINE HCL Inactive HYDROCODONE-ACETAMINOPHEN 5-325 MG ORAL TABLET 1 po q 6hr PRN Pa in HYDROCODONE-ACETAMINOPHEN 5-325 MG ORAL TABLET 589183 HYDROCODONE-ACETAMINOPHEN Inactive CELEXA 20 MG ORAL TABLET 1 tablet by mouth daily 09/26 CELEXA 20 MG ORAL TABLET 982929 CITALOPRAM HYDROBROMIDE Inactive REGLAN 10 MG ORAL TABLET 1 po TID PRN Nausea 3 REGLAN 10 MG ORAL TABLET 050406 METOCLOPRAMIDE HCL Inactive LAMISIL 250 MG ORAL TABLET 1 po qd L AMISIL 250 MG ORAL TABLET 894097 TERBINAFINE HCL Inactive DICLOFENAC SODIUM 75 MG ORAL TABLET DELAYED RELEASE 1 tablet by mouth twice daily PRN Knee pain DICLOFENAC SODIUM 75 MG ORAL TABLET DELAYED RELEASE 379090 DICLOFENAC SODIUM Inactive METOCLOPRAMIDE HCL 10 MG ORAL TABLET take one PO tid PRN nausea METOCLOPRAMIDE HCL 10 MG ORAL TABLET 348953 METOCLOPRAM ZACH HCL Inactive TERBINAFINE HCL 250 MG ORAL TABLET take one table PO one time da moises TERBINAFINE HCL 250 MG ORAL TABLET 528038 TERBINAFINE H CL Inactive BUPROPION HCL ER [...] SICKNESS 25 M G ORAL TABLET CHEWABLE 582438 MECLIZINE HCL Inactive SUMATRIPTAN SUCCINATE 100 MG ORAL TABLET Take one PRN for migran e SUMATRIPTAN SUCCINATE 100 MG ORAL TABLET 735631 SUMATRIPTAN SUCCINATE Inactive COMPRO 25 MG RECTAL SUPPOSITORY insert or apply one garza ppository rectally as directed every 12 hours as needed for nausea COMPRO 25 MG RECTAL SUPPOSITORY 338481 PROCHLORPERAZINE Inactive ONDANSETRON 8 MG ORAL TABLET DISINTEGRATING place one tablet on tongue and allow to dissolve every 6 hours as needed for vomitting ONDANSETRON 8 MG ORAL TABLET DISINTEGRATING 251331 ONDANSETRON Inactive HYDROCODONE-ACETAMINOPHEN 5-325 MG ORAL TABLET 0.5 to 1 tab by mouth every 6 hours as needed HYDROCODONE-ACETAMIN OPHEN 5-325 MG ORAL TABLET 788812 HYDROCODONE-ACETAMINOPHEN Inactive BACTRIM DS 800-160 MG ORAL TABLET 1 tab by mouth twice daily 201 11/23/03 BACTRIM DS 800-160 MG ORAL TABLET 539392 TRIMETHOPRIM-SULFAMETHOXAZOLE Inactive DIFLUCAN 150 MG ORAL TABLET [...] as needed HYDROCODONE-ACETAMINOPHEN 5-325 MG ORAL TABLET 108000 HYDROCODONE-ACETAMINOPHEN Inactive BACTROBAN 2 % EXTERNAL CREAM Apply to affected area BID for up to 10 days BACTROBAN 2 % EXTERNAL CREAM MUPIROCIN CA LCIUM Inactive MAGNESIUM CITRATE 1.745 GM/30ML ORAL SOLUTION 150ml po BID P RN Constipation MAGNESIUM CITRATE 1.745 GM/30ML ORAL SOLUTION 10 64593 MAGNESIUM CITRATE Inactive DIFLUCAN 150 MG ORAL TABLET 1 tablet by mouth qod 2015 DIFLUCAN 150 MG ORAL TABLET 155474 FLUCONAZOLE Inactive BACTRIM DS 800-160 MG ORAL TABLET 1 tab by mouth twice daily 201 12/19/26 BACTRIM DS 800-160 MG ORAL TABLET 196581 TRIMETHOPRIM-SULFAMETHOXAZOLE Inactive CLARITIN 10 MG ORAL TABLET 1 tablet by mouth daily as needed for allergies CLARITIN 10 MG ORAL TABLET 447406 LORATADINE I nactive FLUTICASONE PROPIONATE 50 MCG/ACT NASAL SUSPENSION 2 s prays/nostril qd PRN Congestion/Allergies FLUTICASONE PROPION ATE 50 MCG/ACT NASAL SUSPENSION 7470677 FLUTICASONE PROPIONATE Inactive MIRALAX ORAL POWDER 8.5 to 17g po qd PRN Constipation MIRALAX ORAL POWDER 451989 POLYETHYLENE GLYCOL 3350 Inactive IBUPROFEN 800 MG ORAL TABLET 1 tab every 8 hours as needed for p ain IBUPROFEN 800 MG ORAL TABLET 706856 IBUPROFEN [place] ctive HYDROCHLOROTHIAZIDE 12.5 MG ORAL CAPSULE 1 po qd PRN Edema 01/10 HYDROCHLOROTHIAZIDE 12.5 MG ORAL CAPSULE 152862 HYDROCH LOROTHIAZIDE Inactive KLOR-CON 10 10 MEQ ORAL TABLET EXTENDED RELEASE 1 daily with furosemide KLOR-CON 10 10 MEQ ORAL TABLET EXTENDED RELEASE POTASSIUM CHLORIDE Inactive FUROSEMIDE 20 MG ORAL TABLET 1 daily for swelling 2018 FUROSEMIDE 20 MG ORAL TABLET 075642 FUROSEMIDE Inactive SIMVASTATIN 20 MG ORAL TABLET 1 po qd SIMVASTATIN 20 MG ORAL TABLET 291536 SIMVASTATIN Inactive FOCALIN XR 10 MG ORAL CAPSULE EXTENDED RELEASE 24 HOUR 1 po q a. m. FOCALIN XR 10 MG ORAL CAPSULE EXTENDED RELEASE 24 HOUR DEXMETHYLPHENIDATE HCL Inactive PAROXETINE HCL 40 MG ORAL TABLET 1 po qd PAROXETINE HCL 40 MG ORAL TABLET 5065180 PAROXETINE HCL Inactive XANAX 0.5 MG ORAL TABLET 1 po BID PRN anxiety XANAX 0.5 MG ORAL TABLET 650939 ALPRAZOLAM Inactive AMBIEN 5 MG ORAL TABLET 1 po qHS PRN Insomnia AMBIEN 5 MG ORAL TABLET 976375 ZOLPIDEM TARTRATE Inactive PROZAC 10 MG ORAL CAPSULE 1 PO Daily ID OZAC 10 MG ORAL CAPSULE 021340 FLUOXETINE HCL Inactive CIPRO 500 MG ORAL TABLET 1 tablet by mouth twice daily CIPRO 500 MG ORAL TABLET 722098 CIPROFLOXACIN HCL Inactive FLUCONAZOLE 150 MG ORAL TABLET take 1 tab po qday once FLUCONAZOLE 150 MG ORAL TABLET 506074 FLUCONAZOLE Inactive ZITHROMAX Z-KARTHIK 250 MG ORAL TABLET 2 today, then 1 daily for 4 d ays ZITHROMAX Z-KARTHIK 250 MG ORAL TABLET 056142 AZITHROMYCIN Inactive PREDNISONE 20 MG ORAL TABLET 2 tabs daily for 3 days, 1 tab daily for 3 days, 1/2 tab daily for 2 days PREDNISONE 20 MG ORAL T ABLET 154833 PREDNISONE Inactive AZITHROMYCIN 250 MG ORAL TABLET 2 po qd x 1 day, then 1 po q d x 4 days AZITHROMYCIN 250 MG ORAL TABLET 087307 AZITHROMY SPARKLE Inactive PREDNISONE 20 MG ORAL TABLET 2 tabs daily for 3 days, 1 tab daily for 3 days, 1/2 tab daily for 2 days PREDNISONE 20 MG ORAL TABLET 922363 PREDNISONE Inactive CEFDINIR 300 MG ORAL CAPSULE by mouth twice a day 2013 CEFDINIR 300 MG ORAL CAPSULE 783160 CEFDINIR Inactive TRIAMCINOLONE ACETONIDE 0.1 % EXTERNAL OINTMENT Apply to affected areas TID for up to 2 weeks TRIAMCINOLONE ACETON ZACH 0.1 % EXTERNAL OINTMENT 4084282 TRIAMCINOLONE ACETONIDE Inactive PREDNISONE 20 MG ORAL TABLET 2 tabs daily for 3 days, 1 tab daily for 3 days, 1/2 tab daily for 2 days PREDNISONE 20 MG ORAL T ABLET 036936 PREDNISONE Inactive BACTRIM DS 800-160 MG ORAL TABLET 1 po BID x 7 days 29/04/10 BACTRIM DS 800-160 MG ORAL TABLET 165506 SULFAMETHOXAZOLE-TRIMETHOP RIM Inactive CIPRO 500 MG ORAL TABLET 1 tablet by mouth twice daily CIPRO 500 MG ORAL TABLET 465558 CIPROFLOXACIN HCL Inactive AZITHROMYCIN 250 MG ORAL TABLET 2 po qd x 1 day, then 1 po q d x 4 days AZITHROMYCIN 250 MG ORAL TABLET 968088 AZITHROMY SPARKLE Inactive FLAGYL 500 MG ORAL TABLET 1 tablet by mouth bid 04/13 FLAGYL 500 MG ORAL TABLET 821980 METRONIDAZOLE Inactive AZITHROMYCIN 250 MG ORAL TABLET 2 po qd x 1 day, then 1 po q d x 4 days AZITHROMYCIN 250 MG ORAL TABLET 990385 AZITHROMY SPARKLE Inactive AMOXICILLIN 500 MG ORAL CAPSULE 2 po BID x 10 days 201 01/15/27 AMOXICILLIN 500 MG ORAL CAPSULE 558465 AMOXICILLIN Inactive AMOXICILLIN 500 MG ORAL CAPSULE 2 po BID x 14 days for [facility] P[facility] AMOXICILLIN 500 MG ORAL CAPSULE 809432 AMOXICILLIN Inactive CLARITHROMYCIN 500 MG ORAL TABLET 1 tab po BID x 14 days CLARITHROMYCIN 500 MG ORAL TABLET 631201 CLARITHROMYCIN Inacti ve FLAGYL 500 MG ORAL TABLET 1 tablet by mouth bid 08/29 FLAGYL 500 MG ORAL TABLET 458260 METRONIDAZOLE Inactive PROTONIX 40 MG ORAL TABLET DELAYED RELEASE 1 pill by m outh daily, for acid reflux PROTONIX 40 MG ORAL TABLET DELAYED RELEAS E 815965 PANTOPRAZOLE SODIUM Inactive Immunizations Vaccine Administration Date [...] Panel - Chemistry sodium, serum 142 mmol/L 718-262 4993/07/22 carbon dioxide, venous blood 26.3 mmol/L 21.0-32 [...] 0.80 mg/dL 0.00-1.00 cholesterol, serum 172 mg/dL 582-006 5039/07/22 triglyceride, serum, fasting 222 mg/dL 30-200 HDL [...] 0-29 Encounters Code Encounter Date Provider Facility CPT-57951 Level 3 Est. Patient 06:02:19 [facility] Est[facility] Patient 09:11:53 CDT Radha de la rosa [facility] CPT-23912 Level 3 Est. Patient 16:46:51 CDT Thomas reynolds DO [facility] CPT-54418 [id number] Vst-Est Level III 14:40:49 CDT Paul Hamlin MD [facility] CPT-24259 Level 4 Est. Patient 11:08:43 CDT Checo Conklin MD [facility] CPT-06824 [id number] Vst-Est Level III 09:37:41 CDT Dangelo Rangel MD [facility] CPT-55439 Level 4 Est. Patient 08:57:51 FINAL EXPENSE AGENT Checo Conklin MD [facility] CPT-58915 Level 3 Est. Patient 11:24:55 FINAL EXPENSE AGENT Efren almendarez [facility] CPT-30647 Level 3 Est. Patient 13:05:44 CDT Paul Hamlin MD [facility] CPT-80798 Level 3 Est. Patient 11:29:55 CDT Checo Conklin MD [facility] CPT-18829 Level 4 Est. Patient 11:08:12 FINAL EXPENSE AGENT Checo Conklin MD [facility] CPT-06705 Level 4 Est. Patient 16:06:48 FINAL EXPENSE AGENT Checo Conklin MD [facility] CPT-08033 Level 3 Est. Patient 09:11:49 CDT Efren almendarez [facility] CPT-66276 Level 2 Est. Patient 19:53:27 CDT Tanner hill MD [facility] CPT-33212 Level 3 Est. Patient 09:15:34 CDT Efren almendarez [facility] CPT-55140 Level 3 Est. Patient 11:28:51 FINAL EXPENSE AGENT Efren almendarez [facility] CPT-18625 Level 4 Est. Patient 13:55:46 FINAL EXPENSE AGENT Checo Cnoklin MD [facility] CPT-31606 Level 4 Est. Patient 17:10:53 CDT Checo Conklni MD [facility] CPT-70412 Level 3 Est. Patient 15:56:22 CDT Checo Conklin MD [facility] CPT-75893 Level 3 Est. Patient 15:29:07 CDT Checo Conklin MD [facility] CPT-23738 Level 3 Est. Patient 14:38:41 CDT Checo Conklin MD [facility] CPT-65320 Level 3 Est. Patient 15:22:03 FINAL EXPENSE AGENT Thomas reynolds DO [facility] CPT-23213 Level 3 Est. Patient 13:34:17 FINAL EXPENSE AGENT Checo Conklin MD [facility] CPT-89057 Level 3 Est. Patient 12:29:32 CDT Dangelo arroyo MD [facility] CPT-20493 Level 3 Est. Patient 16:53:02 CDT Checo Conklin MD [facility] CPT-86766 Level 3 Est. Patient 16:37:13 CDT Checo Conklin MD [facility] CPT-31218 Level 3 Est. Patient 16:16:59 CDT Paul Hamlin MD [facility] CPT-95112 Level 3 Est. Patient 14:20:13 CDT Dangelo arroyo MD [facility] CPT-07451 Level 4 Est. Patient 11:29:33 CDT Checo Conklin MD [facility] CPT-23689 Level 3 Est. Patient 17:08:31 CDT Checo Conklin MD [facility] CPT-92420 Level 3 Est. Patient 16:50:42 FINAL EXPENSE AGENT Checo Conklin MD [facility] CPT-57948 Level 4 Est. Patient 09:26:08 FINAL EXPENSE AGENT Checo Conklin MD [facility] CPT-83114 Level 3 Est. Patient 11:37:10 CDT Checo Conklin MD [facility] CPT-68577 Level 4 Est. Patient 14:07:38 CDT Checo Conklin MD [facility] CPT-44729 Level 3 Est. Patient 09:54:41 CDT Checo Conklin MD [facility] CPT-92417 Level 3 Est. Patient 11:10:54 CDT Paul Hamlin MD [facility] CPT-83523 Level 3 Est. Patient 14:16:56 FINAL EXPENSE AGENT Checo Conklin MD [facility] CPT-94013 Level 3 Est. Patient 11:04:11 FINAL EXPENSE AGENT Checo Conklin MD [facility] CPT-22930 Level 3 Est. Patient 17:09:26 CDT Dangelo arroyo MD [facility] CPT-04519 Level 3 Est. Patient 16:54:37 CDT Checo Conklin MD [facility] Procedures Code Procedure Name Date Entry Date Standard Desc ription CPT-36785 Abx/Therapy Injection 09:52:15 CDT CPT-95718 Abx/Therapy Injection 18:17:48 CDT CPT-J2550 Phenergan 25 mg (Promethazine) 16:48:23 CDT CPT-J1885 Toradol 60 mg 16:48:23 CDT CPT-63895 Wrist, right, comp 3V - XRAY USE ONLY 09:24:31 CDT CPT-59221 Abd compl w upright - XRAY USE ONLY 1 1:36:54 [employer]ENT CPT-39259 UA w micro - LAB USE ONLY 17:06:46 CDT 2015 CPT-31400 [facility] Qual - LAB USE ONLY 17:06:46 CDT 05/06 CPT-69829 CMP - LAB USE ONLY 17:06:46 CDT CPT-35000 CBC with Diff - LAB USE ONLY 17:06:45 CDT 2 CPT-92225 Venipuncture Draw Fee 17:06:45 CDT CPT-LR Lesion Removal 19:53:27 CDT CPT-OV Office Visit 11:31:28 CDT CPT-48043 Tubersol 09:39:29 CDT CPT-J2550 Phenergan 25 mg (Promethazine) 13:59:02 FIN[employer]PENSE [employer]ENT CPT-J1885 Toradol 60 mg (Ketorolac) 13:59:02 FINAL EXPENSE AGENT 2012
--- OUTSIDE RECORDS SUMMARY | 2019-09-29 01:10 | XMS REPORT | Clinical Summary ---
Author Author Admin, Bethany Gonzales Organization [employer] Address Unknown Phone Unavailable Allergies, Adverse Reactions, [...] of unspecified sites Insomnia, chronic 307.42 Active hCeco Conklin MD Persistent disorder of initiating or [...] Index 27.0-27.9 Adult Resolved 2018 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 [employer] POWER OPERATOR-C Body Mass Index 27.0-27.9, adult Body [...] Active 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 AP RN-C Dysthymic disorder DIABETES ICD-V18.0 Inactive Checo Conklin MD 201 08/27/26 CONCUSSION ICD-850.9 Inactive Checo Joshua FH BREAST CANCER ICD-V16.3 Inactive Checo Joshua ABDOMINAL PAIN RIGHT LOWER QUADRANT ICD-789.03 Inactive Checo Conklin MD UTI ICD-599.0 Inactive Checo Conklin MD 2013 HEADACHE, TENSION ICD-307.81 Inactive Checo Conklin MD PHARYNGITIS ICD-462 Inactive Checo Conklin MD Hypoglycemia, unspecified ICD-251.2 Inactive Checo Conklin MD Insomnia ICD-780.52 Inactive Checo Joshua OTITIS MEDIA-RIGHT ICD-382.9 Inactive Checo Conklin MD Breast mass, right ICD-611.72 Inactive Checo Conklin MD Mastalgia ICD-611.71 Inactive Checo Joshua Onychomycosis, toenails ICD-110.1 Inactive Aracelis Conklin MD Insect bite ICD-919.4 Inactive Checo Conklin MD Carbuncle/furuncle NOS ICD-680.9 Inactive Hilaria Conklin MD BRONCHITIS, ACUTE ICD-466.0 Inactive Checo gallagher MD Abdominal pain ICD-789.00 Ozzy ngo MD Knee pain, right ICD-719.46 Inactive Checo gallagher MD Vertigo ICD-780.4 Inactive Checo Conklin MD 2014 Abscess, skin ICD-682.9 Inactive Checo richey MD Sinusitis ICD-461.9 Inactive Checo Conklin MD Cough ICD-786.2 Inactive Checo Conklin MD 2016 Pedal edema ICD-782.3 Inactive Checo Conklin MD 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 Checo Conklin MD Abdominal pain, generalized ICD-789.07 Inactive Checo Conklin MD Urinary frequency ICD-788.41 Inactive Checo Conklin MD Bacterial vaginosis ICD-616.10 Inactive Lenora Conklin MD Pharyngitis ICD-462 Inactive Checo Conklin MD Abdominal pain, generalized ICD-789.07 Inactive Checo Conklin MD Nausea ICD-787.02 Inactive Checo Conklin MD 201 02/15/12 Sinusitis, acute ICD-461.9 Inactive Checo Ortiz MD Body Mass Index 27.0-27.9 Adult Jeremias Marks MA Repeated falls ICD-781.99 Inactive Checo ngo MD Body Mass Index 25.0-25.9 Adult Inamajo Hamlin MD Medication List Medication Instructions Start Date Stop Date Generic Name NDC Status Provider Patient Instruction CELEXA 10 MG ORAL TABLET 1 tab PO daily for anxiety/d epression may increase to 2 tabs daily in 2 weeks if needed CITALOPRAM HYDRO BROMIDE 00626016279 Active 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 APRN-C Active PROZAC 10 MG ORAL CAPSULE 1 PO Daily FLUOXETINE HCL 25664668017 No Longer Active 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 APRN-C Active VYVANSE 30 MG ORAL CAPSULE 1 PO daily LISDEXAMF ETAMINE DIMESYLATE 98015007758 Active 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 [employer] OPERATOR-C Active XANAX 0.5 MG ORAL TABLET 1 tablet PO BID; PRN A LPRAZOLAM 32671790785 Active Radhasantos Whitaker [employer] POWER OPERATOR-C Active SIMVASTATIN 20 MG ORAL TABLET 1 tablet PO daily SI MVASTATIN 78975129562 Active Radhasantos Whitaker [employer] OPERATOR-C Active IBUPROFEN 800 MG ORAL TABLET 1 tablet PO q8hr PRN IBUPROFEN 32083400197 Active Radhasantos Whitaker [employer] OPERATOR-C Active AMBIEN 5 MG ORAL TABLET 1 tablet PO once daily; PRN ZOLPIDEM TARTRATE 56608436680 Active 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 [employer]OWER OPERATOR-C Active ALBUTEROL SULFATE HFA 108 (90 BASE) MCG/ACT INHALATION AEROSOL SOLUTION 2 puffs, INH, q4hr PRN ALBUTEROL SULFATE 42752404075 Active Radha Sherman A PRN-C Active AMBIEN 5 MG ORAL TABLET 1 po qHS PRN Insomnia ZOLPIDEM TARTRATE 28293477324 No Longer Active 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 APRN-C Active XANAX 0.5 MG ORAL TABLET 1 po BID PRN anxiety A LPRAZOLAM 91992598503 No Longer Active 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 [employer] POWER OPERATOR-C Active PAROXETINE HCL 40 MG ORAL TABLET 1 po qd PAR OXETINE HCL 57262312030 No Longer Active 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 [employer] POWER OPERATOR-C Active FOCALIN XR 10 MG ORAL CAPSULE EXTENDED RELEASE 24 HOUR 1 po q a. m. DEXMETHYLPHENIDATE HCL 59036164757 No Longer Active Radha Low [employer] OPERATOR-C Active SIMVASTATIN 20 MG ORAL TABLET 1 po qd SIMVAS TATIN 00103858715 No Longer Active 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 [employer] POWER OPERATOR-C Active FUROSEMIDE 20 MG ORAL TABLET 1 daily for swelling 2018 FUROSEMIDE 08541279803 No Longer Active 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 [employer] POWER OPERATOR-C Active KLOR-CON 10 10 MEQ ORAL TABLET EXTENDED RELEASE 1 daily with furosemide POTASSIUM CHLORIDE 90543955694 No Longer Active 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 [employer] OPERATOR-C Active HYDROCHLOROTHIAZIDE 12.5 MG ORAL CAPSULE 1 po qd PRN Edema 01/10 HYDROCHLOROTHIAZIDE 75102454010 No Longer Active Paul Hamlin MD Active IBUPROFEN 800 MG ORAL TABLET 1 tab every 8 hours as needed for p ain IBUPROFEN 14922578130 No Longer Active Paul Hamlin MD Active MIRALAX ORAL POWDER 8.5 to 17g po qd PRN Constipation POLYETHYLENE GLYCOL 3350 42370007746 No Longer Active Checo Conklin MD Active PROTONIX 40 MG ORAL TABLET DELAYED RELEASE 1 pill [address] [facility] daily, for acid reflux PANTOPRAZOLE SODIUM 80795571793 No Longer Activ e Corry Méndez LPN Active FLAGYL 500 MG ORAL TABLET 1 tablet by mouth bid 08/29 METRONIDAZOLE 71038313500 No Longer Active Corry Méndez LPN Active CLARITHROMYCIN 500 MG ORAL TABLET 1 tab po BID x 14 days CLARITHROMYCIN 78719515824 No Longer Active Corry Méndez LPN Active AMOXICILLIN 500 MG ORAL CAPSULE 2 po BID x 14 days for H. Pylori AMOXICILLIN 83799124206 No Longer Active Corry Méndez LPN Active FLUTICASONE PROPIONATE 50 MCG/ACT NASAL SUSPENSION 2 s prays/nostril qd PRN Congestion/Allergies FLUTICASONE PROPIONATE 6007602603 9 No Longer Active Checo oCnklin MD Active AMOXICILLIN 500 MG ORAL CAPSULE 2 po BID x 10 days 201 01/15/27 AMOXICILLIN 84424018915 No Longer Active Checo Conklin MD Activ e CLARITIN 10 MG ORAL TABLET 1 tablet by mouth daily as needed for allergies LORATADINE 99518469137 No Longer Active Checo Ortiz MD Active BACTRIM DS 800-160 MG ORAL TABLET 1 tab by mouth twice daily 201 12/19/26 TRIMETHOPRIM-SULFAMETHOXAZOLE 78288692374 No Longer Active Ragini Carrillo MD Active DIFLUCAN 150 MG ORAL TABLET 1 tablet by mouth qod 2015 FLUCONAZOLE 30879125450 No Longer Active Efren Medel [employer]LE[employer] POWER OPERATOR Act mike AZITHROMYCIN 250 MG ORAL TABLET 2 po qd x 1 day, then 1 po q d x 4 days AZITHROMYCIN 50926894377 No Longer Active Efren flores [employer]LE[employer] POWER OPERATOR Active FLAGYL 500 MG ORAL TABLET 1 tablet by mouth bid 04/13 METRONIDAZOLE 26830544874 No Longer Active Checo Conklin MD Acti ve MAGNESIUM CITRATE 1.745 GM/30ML ORAL SOLUTION 150ml po BID P RN Constipation MAGNESIUM CITRATE 59223614706 No Longer Active Checo Conklin MD Active BACTROBAN 2 % EXTERNAL CREAM Apply to affected area BID for up to 10 days MUPIROCIN CALCIUM 22398480978 No Longer Active Checo Conklin MD Active HYDROCODONE-ACETAMINOPHEN 5-325 MG ORAL TABLET 1 tab b y mouth every 6 hours as needed HYDROCODONE-ACETAMINOPHEN 59855393916 No Longer Active Checo Conklin MD Active IBUPROFEN 800 MG ORAL TABLET 1 tab every 8 hours with food 03/20 IBUPROFEN 79216769930 No Longer Active Checo Conklin MD Active DIFLUCAN 150 MG ORAL TABLET 1 tablet by mouth if neede d, hold until symptoms start FLUCONAZOLE 82079061783 No Longer Active Checo Conklin MD Active BACTRIM DS 800-160 MG ORAL TABLET 1 tab by mouth twice daily 201 11/23/03 TRIMETHOPRIM-SULFAMETHOXAZOLE 21339729501 No Longer Active Bonnie Méndez LPN Active HYDROCODONE-ACETAMINOPHEN 5-325 MG ORAL TABLET 0.5 to 1 tab by mouth every 6 hours as needed HYDROCODONE-ACETAMINOPHEN 99221177023 No Longer Active Checo Conklin MD Active ONDANSETRON 8 MG ORAL TABLET DISINTEGRATING place one tablet on tongue and allow to dissolve every 6 hours as needed for vomitting ONDANSETRON 53943603844 No Longer Active Checo Conklin MD Activ e COMPRO 25 MG RECTAL SUPPOSITORY insert or apply one garza ppository rectally as directed every 12 hours as needed for nausea PROCHLORPERAZINE 25193083971 No Longer Active Checo Conklin MD A ctive SUMATRIPTAN SUCCINATE 100 MG ORAL TABLET Take one PRN for migran e SUMATRIPTAN SUCCINATE 63632372097 No Longer Active Checo Conklin MD Active TRAVEL SICKNESS 25 MG ORAL TABLET CHEWABLE chew and sw allow one tablet every 6 hours as needed MECLIZINE HCL 20349088009 No Longer A ctive Checo Conklin MD Active BUPROPION HCL ER (SR) 100 MG ORAL TABLET EXTENDED RELE ASE 12 HOUR take one tablet by mouth one time daily for one week then take 1 two times daily BUPROPION HCL 42731979886 No Longer Active Checo gallagher MD Active TERBINAFINE HCL 250 MG ORAL TABLET take one table PO one time da moises TERBINAFINE HCL 24292596329 No Longer Active Checo Conklin MD Active METOCLOPRAMIDE HCL 10 MG ORAL TABLET take one PO tid PRN nausea METOCLOPRAMIDE HCL 83552138873 No Longer Active Checo Conklin MD Active DICLOFENAC SODIUM 75 MG ORAL TABLET DELAYED RELEASE 1 tablet by mouth twice daily PRN Knee pain DICLOFENAC SODIUM 75837702813 No Longer Active Checo Conklin MD Active LAMISIL 250 MG ORAL TABLET 1 po qd TERBINAFI NE HCL 15203809159 No Longer Active Checo Conklin MD Active REGLAN 10 MG ORAL TABLET 1 po TID PRN Nausea 3 METOCLOPRAMIDE HCL 89725149470 No Longer Active Checo Conklin MD Active CELEXA 20 MG ORAL TABLET 1 tablet by mouth daily 09/26 CITALOPRAM HYDROBROMIDE 23621875807 No Longer Active Checo Conklin MD Active AZITHROMYCIN 250 MG ORAL TABLET 2 po qd x 1 day, then 1 po q d x 4 days AZITHROMYCIN 89449939670 No Longer Active Checo Ortiz MD Active HYDROCODONE-ACETAMINOPHEN 5-325 MG ORAL TABLET 1 po q 6hr PRN Pa in HYDROCODONE-ACETAMINOPHEN 05844959709 No Longer Active Lenora Conklin MD Active PHENAZOPYRIDINE HCL 200 MG ORAL TABLET take 1 tab po TID for bladder pain PHENAZOPYRIDINE HCL 52788484787 No Longer Active Joe Conklin MD Active CIPRO 500 MG ORAL TABLET 1 tablet by mouth twice daily CIPROFLOXACIN HCL 11249569235 No Longer Active Dangelo Rangel MD Active HYDROCODONE-ACETAMINOPHEN 5-325 MG ORAL TABLET 1/2 to 1 po q 4 hours prn cough HYDROCODONE-ACETAMINOPHEN 16533306600 No Longer Activ e Dangelo Rangel MD Active BACTRIM DS 800-160 MG ORAL TABLET 1 po BID x 7 days 29/04/10 SULFAMETHOXAZOLE-TRIMETHOPRIM 21554036135 No Longer Active Checo Conklin MD Active PREDNISONE 20 MG ORAL TABLET 2 tabs daily for 3 days, 1 tab daily for 3 days, 1/2 tab daily for 2 days PREDNISONE 89322146468 No Longer Active Checo Conklin MD Active TRIAMCINOLONE ACETONIDE 0.1 % EXTERNAL OINTMENT Apply to affected areas TID for up to 2 weeks TRIAMCINOLONE ACETONIDE 12699833078 No Longer Active Checo Conklin MD Active CEFDINIR 300 MG ORAL CAPSULE by mouth twice a day 2013 CEFDINIR 12479674446 No Longer Active Dangelo Rangel MD Acti ve BUPROPION HCL ER (SMOKING DET) 150 MG ORAL TABLET EXTE NDED RELEASE 12 HOUR 1 a day for 1 week then 1 twice a day BUPROPION HCL (SMOKING DETER) 18538497641 No Longer Active Checo Conklin MD Active CHANTIX STARTING MONTH KARTHIK 0.5 MG X 11 & 1 MG X 42 ORA L TABLET 0.5mg daily for 3 days, then 0.5mg BID for 4 days, then 1mg BID VARENICLINE TARTRATE 53635395593 No Longer Active Checo Conklin MD Activ e CONCERTA 18 MG ORAL TABLET EXTENDED RELEASE 1 po q a.m. METHYLPHENIDATE HCL 92635045179 No Longer Active Checo Conklin MD Active TRAZODONE HCL 100 MG ORAL TABLET 0.5 to 1 po qHS PRN Insomnia 20 30/07/08 TRAZODONE HCL 06601341595 No Longer Active Checo Conklin MD Active FIORICET 325-50-40 MG TAB 1 tablet by mouth four times daily as needed [id number] 71533877651 No Longer Active Checo Conklin MD Active PHENERGAN CREAM* 25mg applied to wrist q6hr PRN Nausea PHENERGAN CREAM* No Longer Active Checo Conklin MD A ctive FLONASE 50 MCG/ACT NASAL SUSPENSION 1 spray each nostril am and hs FLUTICASONE PROPIONATE 18671735874 No Longer Active Checo Conklin MD Active ANTIPYRINE-BENZOCAINE 5.4-1.4 % OTIC SOLUTION 1-2 drops in affec yohannes ear BENZOCAINE-ANTIPYRINE 88481050281 No Longer Active Checo Conklin MD Active CEFDINIR 300 MG ORAL CAPSULE 1 po bid CEFDINIR 37108818658 No Longer Active Checo Conklin MD Active PREDNISONE 20 MG ORAL TABLET 2 tabs daily for 3 days, 1 tab daily for 3 days, 1/2 tab daily for 2 days PREDNISONE 82254573985 No Longer Active Checo Conklin MD Active AZITHROMYCIN 250 MG ORAL TABLET 2 po qd x 1 day, then 1 po q d x 4 days AZITHROMYCIN 82406278614 No Longer Active Checo Ortiz MD Active PREDNISONE 20 MG ORAL TABLET 2 tabs daily for 3 days, 1 tab daily for 3 days, 1/2 tab daily for 2 days PREDNISONE 22744565233 No Longer Active Checo Conklin MD Active ZITHROMAX Z-KARTHIK 250 MG ORAL TABLET 2 today, then 1 daily for 4 d ays AZITHROMYCIN 83718333767 No Longer Active Paul Hamlin MD Active FOCALIN XR 10 MG ORAL CAPSULE EXTENDED RELEASE 24 HOUR 1 po q a. m. DEXMETHYLPHENIDATE HCL 19131702479 No Longer Active Paul Hamlin MD Active PERCOCET 10-325 MG ORAL TABLET 1 tablet every 6 hours as needed for pain OXYCODONE-ACETAMINOPHEN 00500253211 No Longer Active Paul Hamlin MD Active LORTAB 5-500 MG ORAL TABLET 1/2 to 1 tablet by mouth e very 4 hours as needed for pain HYDROCODONE-ACETAMINOPHEN 24990110901 No Longer Active Checo Conklin MD Active FOCALIN XR 15 MG ORAL CAPSULE EXTENDED RELEASE 24 HOUR 1 po q a. m. DEXMETHYLPHENIDATE HCL 21301325716 No Longer Active Checo Conklin MD Active ZOFRAN ODT 4 MG ORAL TABLET DISINTEGRATING 1 po q6hr PRN Nausea ONDANSETRON 48174068565 No Longer Active Checo Conklin MD Active PERCOCET 5-325 MG ORAL TABLET 1 tablet by mouth every 6 hour s as needed OXYCODONE-ACETAMINOPHEN 97821294704 No Longer Active Checo Conklin MD Active PYRIDIUM 200 MG ORAL TABLET take 1 tab po TID prn urinary pain. PHENAZOPYRIDINE HCL 89792909102 No Longer Active Checo Joshua Active FLUCONAZOLE 150 MG ORAL TABLET take 1 tab po qday once FLUCONAZOLE 51155764322 No Longer Active Dangelo Rangel MD Acti ve CIPRO 500 MG ORAL TABLET 1 tablet by mouth twice daily CIPROFLOXACIN HCL 05943145072 No Longer Active Dangelo Rangel MD Active PYRIDIUM 200 MG ORAL TABLET take 1 tab po TID prn urinary pain. PYRIDIUM 200 MG ORAL TABLET 9016951 PHENAZOPYRIDINE HCL Inactive PERCOCET 5-325 MG ORAL TABLET 1 tablet by mouth every 6 hour s as needed PERCOCET 5-325 MG ORAL TABLET 0640335 OXYCODONE-ACETAMINOPHEN Inactive ZOFRAN ODT 4 MG ORAL [...] for pain PERCOCET 10-325 MG ORAL TABLET 7794084 OXYCODONE-ACETAMI NOPHEN Inactive FOCALIN XR 10 MG ORAL CAPSULE EXTENDED RELEASE 24 HOUR 1 po q a. m. FOCALIN XR 10 MG ORAL CAPSULE EXTENDED RELEASE 24 HOUR DEXMETHYLPHENIDATE HCL Inactive CEFDINIR 300 MG ORAL CAPSULE 1 po bid CEFDINI R 300 MG ORAL CAPSULE 586064 CEFDINIR Inactive ANTIPYRINE-BENZOCAINE 5.4-1.4 % OTIC SOLUTION [...] 30/07/08 TRAZODONE HCL 100 MG ORAL TABLET 550872 TRAZODONE HCL Inactive CONCERTA 18 MG ORAL [...] cough HYDROCODONE-ACETAMINOPHEN 5-325 MG ORAL TABLET 8 11480 HYDROCODONE-ACETAMINOPHEN Inactive PHENAZOPYRIDINE HCL 200 MG ORAL TABLET take 1 tab po TID for bladder pain PHENAZOPYRIDINE HCL 200 MG ORAL TABLET 9695783 PHENAZOPYRIDINE HCL Inactive HYDROCODONE-ACETAMINOPHEN 5-325 MG ORAL TABLET 1 po q 6hr PRN Pa in HYDROCODONE-ACETAMINOPHEN 5-325 MG ORAL TABLET 273599 HYDROCODONE-ACETAMINOPHEN Inactive CELEXA 20 MG ORAL TABLET 1 tablet by mouth daily 09/26 CELEXA 20 MG ORAL TABLET 493567 CITALOPRAM HYDROBROMIDE Inactive REGLAN 10 MG ORAL TABLET 1 po TID PRN Nausea 3 REGLAN 10 MG ORAL TABLET 481397 METOCLOPRAMIDE HCL Inactive LAMISIL 250 MG ORAL TABLET 1 po qd L AMISIL 250 MG ORAL TABLET 378527 TERBINAFINE HCL Inactive DICLOFENAC SODIUM 75 MG ORAL TABLET DELAYED RELEASE 1 tablet by mouth twice daily PRN Knee pain DICLOFENAC SODIUM 75 MG ORAL TABLET DELAYED RELEASE 764760 DICLOFENAC SODIUM Inactive METOCLOPRAMIDE HCL 10 MG ORAL TABLET take one PO tid PRN nausea METOCLOPRAMIDE HCL 10 MG ORAL TABLET 728449 METOCLOPRAM ZACH HCL Inactive TERBINAFINE HCL 250 MG ORAL TABLET take one table PO one time da moises TERBINAFINE HCL 250 MG ORAL TABLET 718646 TERBINAFINE H CL Inactive BUPROPION HCL ER [...] SICKNESS 25 M G ORAL TABLET CHEWABLE 996229 MECLIZINE HCL Inactive SUMATRIPTAN SUCCINATE 100 MG ORAL TABLET Take one PRN for migran e SUMATRIPTAN SUCCINATE 100 MG ORAL TABLET 212888 SUMATRIPTAN SUCCINATE Inactive COMPRO 25 MG RECTAL SUPPOSITORY insert or apply one garza ppository rectally as directed every 12 hours as needed for nausea COMPRO 25 MG RECTAL SUPPOSITORY 120905 PROCHLORPERAZINE Inactive ONDANSETRON 8 MG ORAL TABLET DISINTEGRATING place one tablet on tongue and allow to dissolve every 6 hours as needed for vomitting ONDANSETRON 8 MG ORAL TABLET DISINTEGRATING 582631 ONDANSETRON Inactive HYDROCODONE-ACETAMINOPHEN 5-325 MG ORAL TABLET 0.5 to 1 tab by mouth every 6 hours as needed HYDROCODONE-ACETAMIN OPHEN 5-325 MG ORAL TABLET 836675 HYDROCODONE-ACETAMINOPHEN Inactive BACTRIM DS 800-160 MG ORAL TABLET 1 tab by mouth twice daily 201 11/23/03 BACTRIM DS 800-160 MG ORAL TABLET 946558 TRIMETHOPRIM-SULFAMETHOXAZOLE Inactive DIFLUCAN 150 MG ORAL TABLET [...] as needed HYDROCODONE-ACETAMINOPHEN 5-325 MG ORAL TABLET 402002 HYDROCODONE-ACETAMINOPHEN Inactive BACTROBAN 2 % EXTERNAL CREAM Apply to affected area BID for up to 10 days BACTROBAN 2 % EXTERNAL CREAM MUPIROCIN CA LCIUM Inactive MAGNESIUM CITRATE 1.745 GM/30ML ORAL SOLUTION 150ml po BID P RN Constipation MAGNESIUM CITRATE 1.745 GM/30ML ORAL SOLUTION 10 48581 MAGNESIUM CITRATE Inactive DIFLUCAN 150 MG ORAL TABLET 1 tablet by mouth qod 2015 DIFLUCAN 150 MG ORAL TABLET 308983 FLUCONAZOLE Inactive BACTRIM DS 800-160 MG ORAL TABLET 1 tab by mouth twice daily 201 12/19/26 BACTRIM DS 800-160 MG ORAL TABLET 329920 TRIMETHOPRIM-SULFAMETHOXAZOLE Inactive CLARITIN 10 MG ORAL TABLET 1 tablet by mouth daily as needed for allergies CLARITIN 10 MG ORAL TABLET 970406 LORATADINE I nactive FLUTICASONE PROPIONATE 50 MCG/ACT NASAL SUSPENSION 2 s prays/nostril qd PRN Congestion/Allergies FLUTICASONE PROPION ATE 50 MCG/ACT NASAL SUSPENSION 7220447 FLUTICASONE PROPIONATE Inactive MIRALAX ORAL POWDER 8.5 to 17g po qd PRN Constipation MIRALAX ORAL POWDER 733505 POLYETHYLENE GLYCOL 3350 Inactive IBUPROFEN 800 MG ORAL TABLET 1 tab every 8 hours as needed for p ain IBUPROFEN 800 MG ORAL TABLET 495157 IBUPROFEN [place] ctive HYDROCHLOROTHIAZIDE 12.5 MG ORAL CAPSULE 1 po qd PRN Edema 01/10 HYDROCHLOROTHIAZIDE 12.5 MG ORAL CAPSULE 966500 HYDROCH LOROTHIAZIDE Inactive KLOR-CON 10 10 MEQ ORAL TABLET EXTENDED RELEASE 1 daily with furosemide KLOR-CON 10 10 MEQ ORAL TABLET EXTENDED RELEASE POTASSIUM CHLORIDE Inactive FUROSEMIDE 20 MG ORAL TABLET 1 daily for swelling 2018 FUROSEMIDE 20 MG ORAL TABLET 959144 FUROSEMIDE Inactive SIMVASTATIN 20 MG ORAL TABLET 1 po qd SIMVASTATIN 20 MG ORAL TABLET 169506 SIMVASTATIN Inactive FOCALIN XR 10 MG ORAL CAPSULE EXTENDED RELEASE 24 HOUR 1 po q a. m. FOCALIN XR 10 MG ORAL CAPSULE EXTENDED RELEASE 24 HOUR DEXMETHYLPHENIDATE HCL Inactive PAROXETINE HCL 40 MG ORAL TABLET 1 po qd PAROXETINE HCL 40 MG ORAL TABLET 7134648 PAROXETINE HCL Inactive XANAX 0.5 MG ORAL TABLET 1 po BID PRN anxiety XANAX 0.5 MG ORAL TABLET 677675 ALPRAZOLAM Inactive AMBIEN 5 MG ORAL TABLET 1 po qHS PRN Insomnia AMBIEN 5 MG ORAL TABLET 655240 ZOLPIDEM TARTRATE Inactive PROZAC 10 MG ORAL CAPSULE 1 PO Daily GA OZAC 10 MG ORAL CAPSULE 947317 FLUOXETINE HCL Inactive CIPRO 500 MG ORAL TABLET 1 tablet by mouth twice daily CIPRO 500 MG ORAL TABLET 407507 CIPROFLOXACIN HCL Inactive FLUCONAZOLE 150 MG ORAL TABLET take 1 tab po qday once FLUCONAZOLE 150 MG ORAL TABLET 852402 FLUCONAZOLE Inactive ZITHROMAX Z-KARTHIK 250 MG ORAL TABLET 2 today, then 1 daily for 4 d ays ZITHROMAX Z-KARTHIK 250 MG ORAL TABLET 427182 AZITHROMYCIN Inactive PREDNISONE 20 MG ORAL TABLET 2 tabs daily for 3 days, 1 tab daily for 3 days, 1/2 tab daily for 2 days PREDNISONE 20 MG ORAL T ABLET 519532 PREDNISONE Inactive AZITHROMYCIN 250 MG ORAL TABLET 2 po qd x 1 day, then 1 po q d x 4 days AZITHROMYCIN 250 MG ORAL TABLET 585553 AZITHROMY SPARKLE Inactive PREDNISONE 20 MG ORAL TABLET 2 tabs daily for 3 days, 1 tab daily for 3 days, 1/2 tab daily for 2 days PREDNISONE 20 MG ORAL TABLET 130330 PREDNISONE Inactive CEFDINIR 300 MG ORAL CAPSULE by mouth twice a day 2013 CEFDINIR 300 MG ORAL CAPSULE 567332 CEFDINIR Inactive TRIAMCINOLONE ACETONIDE 0.1 % EXTERNAL OINTMENT Apply to affected areas TID for up to 2 weeks TRIAMCINOLONE ACETON ZACH 0.1 % EXTERNAL OINTMENT 6199054 TRIAMCINOLONE ACETONIDE Inactive PREDNISONE 20 MG ORAL TABLET 2 tabs daily for 3 days, 1 tab daily for 3 days, 1/2 tab daily for 2 days PREDNISONE 20 MG ORAL T ABLET 194002 PREDNISONE Inactive BACTRIM DS 800-160 MG ORAL TABLET 1 po BID x 7 days 29/04/10 BACTRIM DS 800-160 MG ORAL TABLET 441406 SULFAMETHOXAZOLE-TRIMETHOP RIM Inactive CIPRO 500 MG ORAL TABLET 1 tablet by mouth twice daily CIPRO 500 MG ORAL TABLET 250669 CIPROFLOXACIN HCL Inactive AZITHROMYCIN 250 MG ORAL TABLET 2 po qd x 1 day, then 1 po q d x 4 days AZITHROMYCIN 250 MG ORAL TABLET 094205 AZITHROMY SPARKLE Inactive FLAGYL 500 MG ORAL TABLET 1 tablet by mouth bid 04/13 FLAGYL 500 MG ORAL TABLET 106766 METRONIDAZOLE Inactive AZITHROMYCIN 250 MG ORAL TABLET 2 po qd x 1 day, then 1 po q d x 4 days AZITHROMYCIN 250 MG ORAL TABLET 502489 AZITHROMY SPARKLE Inactive AMOXICILLIN 500 MG ORAL CAPSULE 2 po BID x 10 days 201 01/15/27 AMOXICILLIN 500 MG ORAL CAPSULE 257746 AMOXICILLIN Inactive AMOXICILLIN 500 MG ORAL CAPSULE 2 po BID x 14 days for H. Pylori AMOXICILLIN 500 MG ORAL CAPSULE 346453 AMOXICILLIN Inactive CLARITHROMYCIN 500 MG ORAL TABLET 1 tab po BID x 14 days CLARITHROMYCIN 500 MG ORAL TABLET 752076 CLARITHROMYCIN Inacti ve FLAGYL 500 MG ORAL TABLET 1 tablet by mouth bid 08/29 FLAGYL 500 MG ORAL TABLET 550538 METRONIDAZOLE Inactive PROTONIX 40 MG ORAL TABLET DELAYED RELEASE 1 pill by m outh daily, for acid reflux PROTONIX 40 MG ORAL TABLET DELAYED RELEAS E 919945 PANTOPRAZOLE SODIUM Inactive Immunizations Vaccine Administration Date [...] Panel - Chemistry sodium, serum 142 mmol/L 647-793 4672/07/22 carbon dioxide, venous blood 26.3 mmol/L 21.0-32 [...] 0.80 mg/dL 0.00-1.00 cholesterol, serum 172 mg/dL 949-642 3514/07/22 triglyceride, serum, fasting 222 mg/dL 30-200 HDL cholesterol, serum 28 mg/dL 32-60 LDL cholesterol, serum 100 mg/dL 0-130 Lab Report: CBC, Comp. Metabolic Panel, Lipid Panel - Hematology mean corpuscular hemoglobin, RBC 31.7 pg 27. 0-31.2 mean corpuscular hemoglobin concentration, RBC 32.5 G/DL % 31.8-35.4 red blood cell distribution width 11.7 % 11 .6-14.8 platelet count 210 10^3/MM^3 10*3/mm3 460-836 0252/07/22 mean corpuscular volume, RBC 97 fL 80-97 hematocrit, blood 46.0 % 37.0-47.0 hemoglobin, blood 15.0 g/dL 12.0-16.0 erythrocyte (RBC) count 4.72 10^6/MM^3 10*6/mm3 3.80-5.8 0 leukocyte count, blood 9.1 10^3/MM^3 10*3/mm3 4.6-10.2 Lab Report: CBC, Comp. Metabolic Panel, Lipid Panel - Lab Alkaline phosphatase 88 50-136 Lab Report: MICROALB/CREAT W/RATIO - Lab microalbumin, urine 30 mg/L 0-19 Lab Report: MICROALB/CREAT W/RATIO - Uri nalysis microalbumin/total urine volume <30 mg/g Normal mg/g mg/L 0-29 Encounters Code Encounter Date Provider Facility CPT-41027 Level 3 Est. Patient 06:02:19 CDT [facility] Level 3 Est[facility] Patient 09:11:53 CDT Radha de la rosa [facility] CPT-63563 Level 3 Est. Patient 16:46:51 CDT Thomas reynolds DO [facility] CPT-48847 [id number] Vst-Est Level III 14:40:49 CDT Paul Hamlin MD [facility] CPT-36618 Level 4 Est. Patient 11:08:43 CDT Checo Conklin MD [facility] CPT-71186 39814-Vck Vst-Est Level III 09:37:41 CDT Dangelo Rangel MD [facility] CPT-12180 Level 4 Est. Patient 08:57:51 WHOLESALE REPRESENTATIVE Checo Conklin MD [facility] CPT-13704 Level 3 Est. Patient 11:24:55 WHOLESALE REPRESENTATIVE Efren almendarez [facility] CPT-29757 Level 3 Est. Patient 13:05:44 CDT Paul Hamlin MD [facility] CPT-90513 Level 3 Est. Patient 11:29:55 CDT Checo Conklin MD [facility] CPT-42048 Level 4 Est. Patient 11:08:12 WHOLESALE REPRESENTATIVE Checo Conklin MD [facility] CPT-26752 Level 4 Est. Patient 16:06:48 WHOLESALE REPRESENTATIVE Checo Conklin MD [facility] CPT-23761 Level 3 Est. Patient 09:11:49 CDT Efren almendarez [facility] CPT-42687 Level 2 Est. Patient 19:53:27 CDT Tanner hill MD [facility] CPT-96218 Level 3 Est. Patient 09:15:34 CDT Efren almendarez [facility] CPT-53128 Level 3 Est. Patient 11:28:51 WHOLESALE REPRESENTATIVE Efren almendarez [facility] CPT-40391 Level 4 Est. Patient 13:55:46 WHOLESALE REPRESENTATIVE Checo Conklin MD [facility] CPT-54324 Level 4 Est. Patient 17:10:53 CDT Checo Conklin MD [facility] CPT-77504 Level 3 Est. Patient 15:56:22 CDT Checo Conklin MD [facility] CPT-46710 Level 3 Est. Patient 15:29:07 CDT Checo Conklin MD [facility] CPT-04463 Level 3 Est. Patient 14:38:41 CDT Checo Conklin MD [facility] CPT-77418 Level 3 Est. Patient 15:22:03 WHOLESALE REPRESENTATIVE Thomas reynolds DO [facility] CPT-35926 Level 3 Est. Patient 13:34:17 WHOLESALE REPRESENTATIVE Checo Conklin MD [facility] CPT-44716 Level 3 Est. Patient 12:29:32 CDT Dangelo arroyo MD [facility] CPT-32134 Level 3 Est. Patient 16:53:02 CDT Checo Conklin MD [facility] CPT-11906 Level 3 Est. Patient 16:37:13 CDT Checo Conklin MD [facility] CPT-41454 Level 3 Est. Patient 16:16:59 CDT Paul Hamlin MD [facility] CPT-98005 Level 3 Est. Patient 14:20:13 CDT Dangelo arroyo MD [facility] CPT-04895 Level 4 Est. Patient 11:29:33 CDT Checo Conklin MD [facility] CPT-52006 Level 3 Est. Patient 17:08:31 CDT Checo Conklin MD [facility] CPT-08362 Level 3 Est. Patient 16:50:42 WHOLESALE REPRESENTATIVE Checo Conklin MD [facility] CPT-19604 Level 4 Est. Patient 09:26:08 WHOLESALE REPRESENTATIVE Checo Conklin MD [facility] CPT-17468 Level 3 Est. Patient 11:37:10 CDT Checo Conklin MD [facility] CPT-91313 Level 4 Est. Patient 14:07:38 CDT Checo Conklin MD [facility] CPT-81730 Level 3 Est. Patient 09:54:41 CDT Checo Conklin MD [facility] CPT-80441 Level 3 Est. Patient 11:10:54 CDT Paul Hamlin MD [facility] CPT-57031 Level 3 Est. Patient 14:16:56 WHOLESALE REPRESENTATIVE Checo Conklin MD [facility] CPT-44776 Level 3 Est. Patient 11:04:11 WHOLESALE REPRESENTATIVE Checo Conklin MD [facility] CPT-45750 Level 3 Est. Patient 17:09:26 CDT Dangelo arroyo MD [facility] CPT-59674 Level 3 Est. Patient 16:54:37 CDT Checo Conklin MD [facility] Procedures Code Procedure Name Date Entry Date Standard Desc ription CPT-82728 Abx/Therapy Injection 09:52:15 CDT CPT-39854 Abx/Therapy Injection 18:17:48 CDT CPT-J2550 Phenergan 25 mg (Promethazine) 16:48:23 CDT CPT-J1885 Toradol 60 mg 16:48:23 CDT CPT-33925 Wrist, right, comp 3V - XRAY USE ONLY 09:24:31 CDT CPT-49320 Abd compl w upright - XRAY USE ONLY 1 1:36:54 WHOLESALE REPRESENTATIVE CPT-36759 UA w micro - LAB USE ONLY 17:06:46 CDT 2015 CPT-16499 [facility] Qual - LAB USE ONLY 17:06:46 CDT 05/06 CPT-70036 CMP - LAB USE ONLY 17:06:46 CDT CPT-60261 CBC with Diff - LAB USE ONLY 17:06:45 CDT 2 CPT-43052 Venipuncture Draw Fee 17:06:45 CDT CPT-LR Lesion Removal 19:53:27 CDT CPT-OV Office Visit 11:31:28 CDT CPT-33019 Tubersol 09:39:29 CDT CPT-J2550 Phenergan 25 mg (Promethazine) 13:59:02 WHOLESALE REPRESENTATIVE CPT-J1885 Toradol 60 mg (Ketorolac) 13:59:02 WHOLESALE REPRESENTATIVE 2012
--- OUTSIDE RECORDS SUMMARY | 2019-09-29 01:10 | XMS REPORT | Clinical Summary ---
Author Author Admin, Bethany Ayala LISNR Address Unknown Phone Unavailable Allergies, Adverse Reactions, [...] Index 27.0-27.9 Adult Resolved 2018 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 ASSET PROTECTION PROFESSIONAL-C Body Mass Index 27.0-27.9, adult Body Mass [...] 300.4 Active Radha WILCOX RN-C Dysthymic disorder DIABETES ICD-V18.0 Inactive Checo Conklin MD 201 08/27/26 CONCUSSION ICD-850.9 Inactive Checo Joshua FH BREAST CANCER ICD-V16.3 Inactive Checo Joshua UTI ICD-599.0 Inactive Checo Conklin MD 2013 ABDOMINAL PAIN RIGHT LOWER QUADRANT ICD-789.03 Inactive Checo Conklin MD HEADACHE, TENSION ICD-307.81 Inactive Checo Conklin MD PHARYNGITIS ICD-462 Inactive Checo Conklin MD OTITIS MEDIA-RIGHT ICD-382.9 Inactive Checo Conklin MD Insomnia ICD-780.52 Inactive Checo Joshua Hypoglycemia, unspecified ICD-251.2 Inactive Checo Conklin MD Breast mass, right ICD-611.72 Inactive Checo Conklin MD Onychomycosis, toenails ICD-110.1 Inactive Aracelis Conklin MD Sinusitis ICD-461.9 Inactive Checo Conklin MD Insect bite ICD-919.4 Inactive Checo Conklin MD Carbuncle/furuncle NOS ICD-680.9 Inactive Hilaria Conklin MD Mastalgia ICD-611.71 Inactive Checo Joshua Knee pain, right ICD-719.46 Inactive Checo gallagher MD Vertigo ICD-780.4 Inactive Checo Conklin MD 2014 Abscess, skin ICD-682.9 Inactive Checo richey MD BRONCHITIS, ACUTE ICD-466.0 Inactive Checo gallagher MD Abdominal pain ICD-789.00 Inactive Checo ngo MD Bacterial vaginosis ICD-616.10 Inactive Lenora Conklin MD Pedal edema ICD-782.3 Inactive Checo Conklin MD 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 Checo Conklin MD Abdominal pain, generalized ICD-789.07 Inactive Checo Conklin MD Urinary frequency ICD-788.41 Inactive Checo Conklin MD Cough ICD-786.2 Inactive Checo Conklin MD 2016 Pharyngitis ICD-462 Inactive Checo Conklin MD Abdominal pain, generalized ICD-789.07 Inactive Checo Conklin MD Nausea ICD-787.02 Inactive Checo Conklin MD 201 02/15/12 Sinusitis, acute ICD-461.9 Inactive Checo Ortiz MD Repeated falls ICD-781.99 Inactive Checo ngo MD Body Mass Index 25.0-25.9 Adult Robbin Hamlin MD Body Mass Index 27.0-27.9 Adult Jeremias Marks MA Medication List Medication Instructions Start Date Stop Date Generic Name NDC Status Provider Patient Instruction CELEXA 10 MG ORAL TABLET 1 tab PO daily for anxiety/d epression may increase to 2 tabs daily in 2 weeks if needed CITALOPRAM HYDRO BROMIDE 90282453723 Active 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 APRN-C Active PROZAC 10 MG ORAL CAPSULE 1 PO Daily FLUOXETINE HCL 21164409348 No Longer Active 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 APRN-C Active VYVANSE 30 MG ORAL CAPSULE 1 PO daily LISDEXAMF ETAMINE DIMESYLATE 08254341837 Active 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 ASSET PROTECTION PROFESSIONAL-C Active XANAX 0.5 MG ORAL TABLET 1 tablet PO BID; PRN A LPRAZOLAM 27879098007 Active Radhasantos Whitaker ASSET PROTECTION PROFESSIONAL-C Active SIMVASTATIN 20 MG ORAL TABLET 1 tablet PO daily SI MVASTATIN 96483255928 Active Radhasantos Whitaker ASSET PROTECTION PROFESSIONAL-C Active IBUPROFEN 800 MG ORAL TABLET 1 tablet PO q8hr PRN IBUPROFEN 49390809681 Active Radhasantos Whitaker ASSET PROTECTION PROFESSIONAL-C Active AMBIEN 5 MG ORAL TABLET 1 tablet PO once daily; PRN ZOLPIDEM TARTRATE 82500333162 Active 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 ASSET PROTECTION PROFESSIONAL-C Active ALBUTEROL SULFATE HFA 108 (90 BASE) MCG/ACT INHALATION AEROSOL SOLUTION 2 puffs, INH, q4hr PRN ALBUTEROL SULFATE 85559758350 Active Radha Sherman A PRN-C Active AMBIEN 5 MG ORAL TABLET 1 po qHS PRN Insomnia ZOLPIDEM TARTRATE 64254793110 No Longer Active 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 APRN-C Active XANAX 0.5 MG ORAL TABLET 1 po BID PRN anxiety A LPRAZOLAM 46810661143 No Longer Active 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 ASSET PROTECTION PROFESSIONAL-C Active PAROXETINE HCL 40 MG ORAL TABLET 1 po qd PAR OXETINE HCL 94181415981 No Longer Active 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 ASSET PROTECTION PROFESSIONAL-C Active FOCALIN XR 10 MG ORAL CAPSULE EXTENDED RELEASE 24 HOUR 1 po q a. m. DEXMETHYLPHENIDATE HCL 72489378366 No Longer Active Radha Low ASSET PROTECTION PROFESSIONAL-C Active SIMVASTATIN 20 MG ORAL TABLET 1 po qd SIMVAS TATIN 10187458511 No Longer Active 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 ASSET PROTECTION PROFESSIONAL-C Active FUROSEMIDE 20 MG ORAL TABLET 1 daily for swelling 2018 FUROSEMIDE 62650697750 No Longer Active 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 ASSET PROTECTION PROFESSIONAL-C Active KLOR-CON 10 10 MEQ ORAL TABLET EXTENDED RELEASE 1 daily with furosemide POTASSIUM CHLORIDE 06062534201 No Longer Active 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 ASSET PROTECTION PROFESSIONAL-C Active HYDROCHLOROTHIAZIDE 12.5 MG ORAL CAPSULE 1 po qd PRN Edema 01/10 HYDROCHLOROTHIAZIDE 13502298420 No Longer Active Paul Hamlin MD Active IBUPROFEN 800 MG ORAL TABLET 1 tab every 8 hours as needed for p ain IBUPROFEN 34007634560 No Longer Active Paul Hamlin MD Active MIRALAX ORAL POWDER 8.5 to 17g po qd PRN Constipation POLYETHYLENE GLYCOL 3350 20167373874 No Longer Active Checo Conklin MD Active PROTONIX 40 MG ORAL TABLET DELAYED RELEASE 1 pill by m [facility] daily, for acid reflux PANTOPRAZOLE SODIUM 85862629765 No Longer Activ e Corry Méndez LPN Active FLAGYL 500 MG ORAL TABLET 1 tablet by mouth bid 08/29 METRONIDAZOLE 85993611070 No Longer Active Corry Méndez LPN Active CLARITHROMYCIN 500 MG ORAL TABLET 1 tab po BID x 14 days CLARITHROMYCIN 29828217949 No Longer Active Corry Méndez LPN Active AMOXICILLIN 500 MG ORAL CAPSULE 2 po BID x 14 days for H. Pylori AMOXICILLIN 84498677678 No Longer Active Corry Méndez LPN Active FLUTICASONE PROPIONATE 50 MCG/ACT NASAL SUSPENSION 2 s prays/nostril qd PRN Congestion/Allergies FLUTICASONE PROPIONATE 6317805880 9 No Longer Active Checo Conklin MD Active AMOXICILLIN 500 MG ORAL CAPSULE 2 po BID x 10 days 201 01/15/27 AMOXICILLIN 21978999353 No Longer Active Checo Conklin MD Activ e CLARITIN 10 MG ORAL TABLET 1 tablet by mouth daily as needed for allergies LORATADINE 58001665141 No Longer Active Checo Ortiz MD Active BACTRIM DS 800-160 MG ORAL TABLET 1 tab by mouth twice daily 201 12/19/26 TRIMETHOPRIM-SULFAMETHOXAZOLE 88824441136 No Longer Active Ragini Carrillo MD Active DIFLUCAN 150 MG ORAL TABLET 1 tablet by mouth qod 2015 FLUCONAZOLE 35183880560 No Longer Active Efren Medel ASSET PROTECTION PROFESSIONAL Act mike AZITHROMYCIN 250 MG ORAL TABLET 2 po qd x 1 day, then 1 po q d x 4 days AZITHROMYCIN 28143612417 No Longer Active Efren flores ASSET PROTECTION PROFESSIONAL Active FLAGYL 500 MG ORAL TABLET 1 tablet by mouth bid 04/13 METRONIDAZOLE 99492022385 No Longer Active Checo Conklin MD Acti ve MAGNESIUM CITRATE 1.745 GM/30ML ORAL SOLUTION 150ml po BID P RN Constipation MAGNESIUM CITRATE 87168344251 No Longer Active Checo Conklin MD Active BACTROBAN 2 % EXTERNAL CREAM Apply to affected area BID for up to 10 days MUPIROCIN CALCIUM 77426949145 No Longer Active Checo Conklin MD Active HYDROCODONE-ACETAMINOPHEN 5-325 MG ORAL TABLET 1 tab b y mouth every 6 hours as needed HYDROCODONE-ACETAMINOPHEN 52739269937 No Longer Active Checo Conklin MD Active IBUPROFEN 800 MG ORAL TABLET 1 tab every 8 hours with food 03/20 IBUPROFEN 02315538366 No Longer Active Checo Conklin MD Active DIFLUCAN 150 MG ORAL TABLET 1 tablet by mouth if neede d, hold until symptoms start FLUCONAZOLE 80107073551 No Longer Active Checo Conklin MD Active BACTRIM DS 800-160 MG ORAL TABLET 1 tab by mouth twice daily 201 11/23/03 TRIMETHOPRIM-SULFAMETHOXAZOLE 23647272565 No Longer Active Bonnie Méndez LPN Active HYDROCODONE-ACETAMINOPHEN 5-325 MG ORAL TABLET 0.5 to 1 tab by mouth every 6 hours as needed HYDROCODONE-ACETAMINOPHEN 26941007394 No Longer Active Checo Conklin MD Active ONDANSETRON 8 MG ORAL TABLET DISINTEGRATING place one tablet on tongue and allow to dissolve every 6 hours as needed for vomitting ONDANSETRON 68184787353 No Longer Active Checo Conklin MD Activ e COMPRO 25 MG RECTAL SUPPOSITORY insert or apply one garza ppository rectally as directed every 12 hours as needed for nausea PROCHLORPERAZINE 20230750310 No Longer Active Checo Conklin MD A ctive SUMATRIPTAN SUCCINATE 100 MG ORAL TABLET Take one PRN for migran e SUMATRIPTAN SUCCINATE 78396748245 No Longer Active Checo Conklin MD Active TRAVEL SICKNESS 25 MG ORAL TABLET CHEWABLE chew and sw allow one tablet every 6 hours as needed MECLIZINE HCL 11418667152 No Longer A ctive Checo Conklin MD Active BUPROPION HCL ER (SR) 100 MG ORAL TABLET EXTENDED RELE ASE 12 HOUR take one tablet by mouth one time daily for one week then take 1 two times daily BUPROPION HCL 50329884230 No Longer Active Checo gallagher MD Active TERBINAFINE HCL 250 MG ORAL TABLET take one table PO one time da moises TERBINAFINE HCL 46337849297 No Longer Active Checo Conklin MD Active METOCLOPRAMIDE HCL 10 MG ORAL TABLET take one PO tid PRN nausea METOCLOPRAMIDE HCL 55956090300 No Longer Active Checo Conklin MD Active DICLOFENAC SODIUM 75 MG ORAL TABLET DELAYED RELEASE 1 tablet by mouth twice daily PRN Knee pain DICLOFENAC SODIUM 89733225757 No Longer Active Checo Conklin MD Active LAMISIL 250 MG ORAL TABLET 1 po qd TERBINAFI NE HCL 04733943237 No Longer Active Checo Conklin MD Active REGLAN 10 MG ORAL TABLET 1 po TID PRN Nausea 3 METOCLOPRAMIDE HCL 06777907181 No Longer Active Checo Conklin MD Active CELEXA 20 MG ORAL TABLET 1 tablet by mouth daily 09/26 CITALOPRAM HYDROBROMIDE 60909315569 No Longer Active Checo Conklin MD Active AZITHROMYCIN 250 MG ORAL TABLET 2 po qd x 1 day, then 1 po q d x 4 days AZITHROMYCIN 07883071114 No Longer Active Checo Ortiz MD Active HYDROCODONE-ACETAMINOPHEN 5-325 MG ORAL TABLET 1 po q 6hr PRN Pa in HYDROCODONE-ACETAMINOPHEN 74309619597 No Longer Active Lenora Conklin MD Active PHENAZOPYRIDINE HCL 200 MG ORAL TABLET take 1 tab po TID for bladder pain PHENAZOPYRIDINE HCL 87482093601 No Longer Active Joe Conklin MD Active CIPRO 500 MG ORAL TABLET 1 tablet by mouth twice daily CIPROFLOXACIN HCL 05612925345 No Longer Active Dangelo Rangel MD Active HYDROCODONE-ACETAMINOPHEN 5-325 MG ORAL TABLET 1/2 to 1 po q 4 hours prn cough HYDROCODONE-ACETAMINOPHEN 22788045859 No Longer Activ e Dangelo Rangel MD Active BACTRIM DS 800-160 MG ORAL TABLET 1 po BID x 7 days 29/04/10 SULFAMETHOXAZOLE-TRIMETHOPRIM 45783479047 No Longer Active Checo Conklin MD Active PREDNISONE 20 MG ORAL TABLET 2 tabs daily for 3 days, 1 tab daily for 3 days, 1/2 tab daily for 2 days PREDNISONE 73359704759 No Longer Active Checo Conklin MD Active TRIAMCINOLONE ACETONIDE 0.1 % EXTERNAL OINTMENT Apply to affected areas TID for up to 2 weeks TRIAMCINOLONE ACETONIDE 77198082052 No Longer Active Checo Conklin MD Active CEFDINIR 300 MG ORAL CAPSULE by mouth twice a day 2013 CEFDINIR 41410587336 No Longer Active Dangelo Rangel MD Acti ve BUPROPION HCL ER (SMOKING DET) 150 MG ORAL TABLET EXTE NDED RELEASE 12 HOUR 1 a day for 1 week then 1 twice a day BUPROPION HCL (SMOKING DETER) 69812515529 No Longer Active Checo Conklin MD Active CHANTIX STARTING MONTH KARTHIK 0.5 MG X 11 & 1 MG X 42 ORA L TABLET 0.5mg daily for 3 days, then 0.5mg BID for 4 days, then 1mg BID VARENICLINE TARTRATE 90409165760 No Longer Active Checo Conklin MD Activ e CONCERTA 18 MG ORAL TABLET EXTENDED RELEASE 1 po q a.m. METHYLPHENIDATE HCL 85476088990 No Longer Active Checo Conklin MD Active TRAZODONE HCL 100 MG ORAL TABLET 0.5 to 1 po qHS PRN Insomnia 20 30/07/08 TRAZODONE HCL 90641263206 No Longer Active Checo Conklin MD Active FIORICET 325-50-40 MG TAB 1 tablet by mouth four times daily as needed [id number] 37299792841 No Longer Active Checo Conklin MD Active PHENERGAN CREAM* 25mg applied to wrist q6hr PRN Nausea PHENERGAN CREAM* No Longer Active Checo Conklin MD A ctive FLONASE 50 MCG/ACT NASAL SUSPENSION 1 spray each nostril am and hs FLUTICASONE PROPIONATE 98462971743 No Longer Active Checo Conklin MD Active ANTIPYRINE-BENZOCAINE 5.4-1.4 % OTIC SOLUTION 1-2 drops in affec yohannes ear BENZOCAINE-ANTIPYRINE 81081788309 No Longer Active Checo Conklin MD Active CEFDINIR 300 MG ORAL CAPSULE 1 po bid CEFDINIR 09365030581 No Longer Active Checo Conklin MD Active PREDNISONE 20 MG ORAL TABLET 2 tabs daily for 3 days, 1 tab daily for 3 days, 1/2 tab daily for 2 days PREDNISONE 27900901326 No Longer Active Checo Conklin MD Active AZITHROMYCIN 250 MG ORAL TABLET 2 po qd x 1 day, then 1 po q d x 4 days AZITHROMYCIN 18481492939 No Longer Active Checo Ortiz MD Active PREDNISONE 20 MG ORAL TABLET 2 tabs daily for 3 days, 1 tab daily for 3 days, 1/2 tab daily for 2 days PREDNISONE 69703810539 No Longer Active Checo Conklin MD Active ZITHROMAX Z-KARTHIK 250 MG ORAL TABLET 2 today, then 1 daily for 4 d ays AZITHROMYCIN 74640539344 No Longer Active Paul Hamlin MD Active FOCALIN XR 10 MG ORAL CAPSULE EXTENDED RELEASE 24 HOUR 1 po q a. m. DEXMETHYLPHENIDATE HCL 25143485153 No Longer Active Paul Hamlin MD Active PERCOCET 10-325 MG ORAL TABLET 1 tablet every 6 hours as needed for pain OXYCODONE-ACETAMINOPHEN 42742530858 No Longer Active Paul Hamlin MD Active LORTAB 5-500 MG ORAL TABLET 1/2 to 1 tablet by mouth e very 4 hours as needed for pain HYDROCODONE-ACETAMINOPHEN 71734910384 No Longer Active Checo Conklin MD Active FOCALIN XR 15 MG ORAL CAPSULE EXTENDED RELEASE 24 HOUR 1 po q a. m. DEXMETHYLPHENIDATE HCL 09396593543 No Longer Active Checo Conklin MD Active ZOFRAN ODT 4 MG ORAL TABLET DISINTEGRATING 1 po q6hr PRN Nausea ONDANSETRON 77841695369 No Longer Active Checo Conklin MD Active PERCOCET 5-325 MG ORAL TABLET 1 tablet by mouth every 6 hour s as needed OXYCODONE-ACETAMINOPHEN 32792630894 No Longer Active Checo Conklin MD Active PYRIDIUM 200 MG ORAL TABLET take 1 tab po TID prn urinary pain. PHENAZOPYRIDINE HCL 36956884957 No Longer Active Checo Joshua Active FLUCONAZOLE 150 MG ORAL TABLET take 1 tab po qday once FLUCONAZOLE 70109091409 No Longer Active Dangelo Rangel MD Acti ve CIPRO 500 MG ORAL TABLET 1 tablet by mouth twice daily CIPROFLOXACIN HCL 62968273057 No Longer Active Dangelo Rangel MD Active PYRIDIUM 200 MG ORAL TABLET take 1 tab po TID prn urinary pain. PYRIDIUM 200 MG ORAL TABLET 4327861 PHENAZOPYRIDINE HCL Inactive PERCOCET 5-325 MG ORAL TABLET 1 tablet by mouth every 6 hour s as needed PERCOCET 5-325 MG ORAL TABLET 9986819 OXYCODONE-ACETAMINOPHEN Inactive ZOFRAN ODT 4 MG ORAL [...] for pain PERCOCET 10-325 MG ORAL TABLET 5154321 OXYCODONE-ACETAMI NOPHEN Inactive FOCALIN XR 10 MG ORAL CAPSULE EXTENDED RELEASE 24 HOUR 1 po q a. m. FOCALIN XR 10 MG ORAL CAPSULE EXTENDED RELEASE 24 HOUR DEXMETHYLPHENIDATE HCL Inactive CEFDINIR 300 MG ORAL CAPSULE 1 po bid CEFDINI R 300 MG ORAL CAPSULE 997666 CEFDINIR Inactive ANTIPYRINE-BENZOCAINE 5.4-1.4 % OTIC SOLUTION [...] 30/07/08 TRAZODONE HCL 100 MG ORAL TABLET 859643 TRAZODONE HCL Inactive CONCERTA 18 MG ORAL [...] cough HYDROCODONE-ACETAMINOPHEN 5-325 MG ORAL TABLET 8 40200 HYDROCODONE-ACETAMINOPHEN Inactive PHENAZOPYRIDINE HCL 200 MG ORAL TABLET take 1 tab po TID for bladder pain PHENAZOPYRIDINE HCL 200 MG ORAL TABLET 7888582 PHENAZOPYRIDINE HCL Inactive HYDROCODONE-ACETAMINOPHEN 5-325 MG ORAL TABLET 1 po q 6hr PRN Pa in HYDROCODONE-ACETAMINOPHEN 5-325 MG ORAL TABLET 472902 HYDROCODONE-ACETAMINOPHEN Inactive CELEXA 20 MG ORAL TABLET 1 tablet by mouth daily 09/26 CELEXA 20 MG ORAL TABLET 949443 CITALOPRAM HYDROBROMIDE Inactive REGLAN 10 MG ORAL TABLET 1 po TID PRN Nausea 3 REGLAN 10 MG ORAL TABLET 511301 METOCLOPRAMIDE HCL Inactive LAMISIL 250 MG ORAL TABLET 1 po qd L AMISIL 250 MG ORAL TABLET 299226 TERBINAFINE HCL Inactive DICLOFENAC SODIUM 75 MG ORAL TABLET DELAYED RELEASE 1 tablet by mouth twice daily PRN Knee pain DICLOFENAC SODIUM 75 MG ORAL TABLET DELAYED RELEASE 910994 DICLOFENAC SODIUM Inactive METOCLOPRAMIDE HCL 10 MG ORAL TABLET take one PO tid PRN nausea METOCLOPRAMIDE HCL 10 MG ORAL TABLET 142452 METOCLOPRAM ZACH HCL Inactive TERBINAFINE HCL 250 MG ORAL TABLET take one table PO one time da moises TERBINAFINE HCL 250 MG ORAL TABLET 099230 TERBINAFINE H CL Inactive BUPROPION HCL ER [...] SICKNESS 25 M G ORAL TABLET CHEWABLE 648169 MECLIZINE HCL Inactive SUMATRIPTAN SUCCINATE 100 MG ORAL TABLET Take one PRN for migran e SUMATRIPTAN SUCCINATE 100 MG ORAL TABLET 156760 SUMATRIPTAN SUCCINATE Inactive COMPRO 25 MG RECTAL SUPPOSITORY insert or apply one garza ppository rectally as directed every 12 hours as needed for nausea COMPRO 25 MG RECTAL SUPPOSITORY 394300 PROCHLORPERAZINE Inactive ONDANSETRON 8 MG ORAL TABLET DISINTEGRATING place one tablet on tongue and allow to dissolve every 6 hours as needed for vomitting ONDANSETRON 8 MG ORAL TABLET DISINTEGRATING 738939 ONDANSETRON Inactive HYDROCODONE-ACETAMINOPHEN 5-325 MG ORAL TABLET 0.5 to 1 tab by mouth every 6 hours as needed HYDROCODONE-ACETAMIN OPHEN 5-325 MG ORAL TABLET 849829 HYDROCODONE-ACETAMINOPHEN Inactive BACTRIM DS 800-160 MG ORAL TABLET 1 tab by mouth twice daily 201 11/23/03 BACTRIM DS 800-160 MG ORAL TABLET 987667 TRIMETHOPRIM-SULFAMETHOXAZOLE Inactive DIFLUCAN 150 MG ORAL TABLET [...] as needed HYDROCODONE-ACETAMINOPHEN 5-325 MG ORAL TABLET 678351 HYDROCODONE-ACETAMINOPHEN Inactive BACTROBAN 2 % EXTERNAL CREAM Apply to affected area BID for up to 10 days BACTROBAN 2 % EXTERNAL CREAM MUPIROCIN CA LCIUM Inactive MAGNESIUM CITRATE 1.745 GM/30ML ORAL SOLUTION 150ml po BID P RN Constipation MAGNESIUM CITRATE 1.745 GM/30ML ORAL SOLUTION 10 48491 MAGNESIUM CITRATE Inactive DIFLUCAN 150 MG ORAL TABLET 1 tablet by mouth qod 2015 DIFLUCAN 150 MG ORAL TABLET 832812 FLUCONAZOLE Inactive BACTRIM DS 800-160 MG ORAL TABLET 1 tab by mouth twice daily 201 12/19/26 BACTRIM DS 800-160 MG ORAL TABLET 723980 TRIMETHOPRIM-SULFAMETHOXAZOLE Inactive CLARITIN 10 MG ORAL TABLET 1 tablet by mouth daily as needed for allergies CLARITIN 10 MG ORAL TABLET 452062 LORATADINE I nactive FLUTICASONE PROPIONATE 50 MCG/ACT NASAL SUSPENSION 2 s prays/nostril qd PRN Congestion/Allergies FLUTICASONE PROPION ATE 50 MCG/ACT NASAL SUSPENSION 1227295 FLUTICASONE PROPIONATE Inactive MIRALAX ORAL POWDER 8.5 to 17g po qd PRN Constipation MIRALAX ORAL POWDER 999119 POLYETHYLENE GLYCOL 3350 Inactive IBUPROFEN 800 MG ORAL TABLET 1 tab every 8 hours as needed for p ain IBUPROFEN 800 MG ORAL TABLET 529145 IBUPROFEN [place] ctive HYDROCHLOROTHIAZIDE 12.5 MG ORAL CAPSULE 1 po qd PRN Edema 01/10 HYDROCHLOROTHIAZIDE 12.5 MG ORAL CAPSULE 769326 HYDROCH LOROTHIAZIDE Inactive KLOR-CON 10 10 MEQ ORAL TABLET EXTENDED RELEASE 1 daily with furosemide KLOR-CON 10 10 MEQ ORAL TABLET EXTENDED RELEASE POTASSIUM CHLORIDE Inactive FUROSEMIDE 20 MG ORAL TABLET 1 daily for swelling 2018 FUROSEMIDE 20 MG ORAL TABLET 317716 FUROSEMIDE Inactive SIMVASTATIN 20 MG ORAL TABLET 1 po qd SIMVASTATIN 20 MG ORAL TABLET 105551 SIMVASTATIN Inactive FOCALIN XR 10 MG ORAL CAPSULE EXTENDED RELEASE 24 HOUR 1 po q a. m. FOCALIN XR 10 MG ORAL CAPSULE EXTENDED RELEASE 24 HOUR DEXMETHYLPHENIDATE HCL Inactive PAROXETINE HCL 40 MG ORAL TABLET 1 po qd PAROXETINE HCL 40 MG ORAL TABLET 6558752 PAROXETINE HCL Inactive XANAX 0.5 MG ORAL TABLET 1 po BID PRN anxiety XANAX 0.5 MG ORAL TABLET 894287 ALPRAZOLAM Inactive AMBIEN 5 MG ORAL TABLET 1 po qHS PRN Insomnia AMBIEN 5 MG ORAL TABLET 835506 ZOLPIDEM TARTRATE Inactive PROZAC 10 MG ORAL CAPSULE [address] OZAC 10 MG ORAL CAPSULE 306514 FLUOXETINE HCL Inactive CIPRO 500 MG ORAL TABLET 1 tablet by mouth twice daily CIPRO 500 MG ORAL TABLET 138031 CIPROFLOXACIN HCL Inactive FLUCONAZOLE 150 MG ORAL TABLET take 1 tab po qday once FLUCONAZOLE 150 MG ORAL TABLET 326546 FLUCONAZOLE Inactive ZITHROMAX Z-KARTHIK 250 MG ORAL TABLET 2 today, then 1 daily for 4 d ays ZITHROMAX Z-KARTHIK 250 MG ORAL TABLET 665642 AZITHROMYCIN Inactive PREDNISONE 20 MG ORAL TABLET 2 tabs daily for 3 days, 1 tab daily for 3 days, 1/2 tab daily for 2 days PREDNISONE 20 MG ORAL T ABLET 169801 PREDNISONE Inactive AZITHROMYCIN 250 MG ORAL TABLET 2 po qd x 1 day, then 1 po q d x 4 days AZITHROMYCIN 250 MG ORAL TABLET 517238 AZITHROMY SPARKLE Inactive PREDNISONE 20 MG ORAL TABLET 2 tabs daily for 3 days, 1 tab daily for 3 days, 1/2 tab daily for 2 days PREDNISONE 20 MG ORAL TABLET 792612 PREDNISONE Inactive CEFDINIR 300 MG ORAL CAPSULE by mouth twice a day 2013 CEFDINIR 300 MG ORAL CAPSULE 116474 CEFDINIR Inactive TRIAMCINOLONE ACETONIDE 0.1 % EXTERNAL OINTMENT Apply to affected areas TID for up to 2 weeks TRIAMCINOLONE ACETON ZACH 0.1 % EXTERNAL OINTMENT 2013414 TRIAMCINOLONE ACETONIDE Inactive PREDNISONE 20 MG ORAL TABLET 2 tabs daily for 3 days, 1 tab daily for 3 days, 1/2 tab daily for 2 days PREDNISONE 20 MG ORAL T ABLET 297822 PREDNISONE Inactive BACTRIM DS 800-160 MG ORAL TABLET 1 po BID x 7 days 29/04/10 BACTRIM DS 800-160 MG ORAL TABLET 261308 SULFAMETHOXAZOLE-TRIMETHOP RIM Inactive CIPRO 500 MG ORAL TABLET 1 tablet by mouth twice daily CIPRO 500 MG ORAL TABLET 650153 CIPROFLOXACIN HCL Inactive AZITHROMYCIN 250 MG ORAL TABLET 2 po qd x 1 day, then 1 po q d x 4 days AZITHROMYCIN 250 MG ORAL TABLET 762592 AZITHROMY SPARKLE Inactive FLAGYL 500 MG ORAL TABLET 1 tablet by mouth bid 04/13 FLAGYL 500 MG ORAL TABLET 037309 METRONIDAZOLE Inactive AZITHROMYCIN 250 MG ORAL TABLET 2 po qd x 1 day, then 1 po q d x 4 days AZITHROMYCIN 250 MG ORAL TABLET 771274 AZITHROMY SPARKLE Inactive AMOXICILLIN 500 MG ORAL CAPSULE 2 po BID x 10 days 01/15/27 AMOXICILLIN 500 MG ORAL CAPSULE 112511 AMOXICILLIN Inactive AMOXICILLIN 500 MG ORAL CAPSULE 2 po BID x 14 days for H. Pylori AMOXICILLIN 500 MG ORAL CAPSULE 277257 AMOXICILLIN Inactive CLARITHROMYCIN 500 MG ORAL TABLET 1 tab po BID x 14 days CLARITHROMYCIN 500 MG ORAL TABLET 114092 CLARITHROMYCIN Inacti ve FLAGYL 500 MG ORAL TABLET 1 tablet by mouth bid 08/29 FLAGYL 500 MG ORAL TABLET 040981 METRONIDAZOLE Inactive PROTONIX 40 MG ORAL TABLET DELAYED RELEASE 1 pill by m outh daily, for acid reflux PROTONIX 40 MG ORAL TABLET DELAYED RELEAS E 639922 PANTOPRAZOLE SODIUM Inactive Immunizations Vaccine Administration Date [...] Panel - Chemistry sodium, serum 142 mmol/L 026-668 8410/07/22 carbon dioxide, venous blood 26.3 mmol/L 21.0-32 [...] 0.80 mg/dL 0.00-1.00 cholesterol, serum 172 mg/dL 022-081 6145/07/22 triglyceride, serum, fasting 222 mg/dL 30-200 HDL [...] 0-29 Encounters Code Encounter Date Provider Facility CPT-38102 Level 3 Est. Patient 06:02:19 CDT [facility] Level 3 Est. Patient 09:11:53 CDT Radha de la rosa [facility] CPT-[facility]84 Level 3 Est. Patient 16:46:51 CDT Thomas reynolds DO [facility] CPT-87975 [id number] Vst-Est Level III 14:40:49 CDT Paul Hamlin MD [facility] CPT-33601 Level 4 Est. Patient 11:08:43 CDT Checo Conklin MD [facility] CPT-83926 [id number] Vst-Est Level III 09:37:41 CDT Dangelo Rangel MD [facility] CPT-25942 Level 4 Est. Patient 08:57:51 [employer] Checo Conklin MD [facility] CPT-77381 Level 3 Est. Patient 11:24:55 [employer] Efren almendarez [facility] CPT-16039 Level 3 Est. Patient 13:05:44 CDT Paul Hamlin MD [facility] CPT-88499 Level 3 Est. Patient 11:29:55 CDT Checo Conklin MD [facility] CPT-86538 Level 4 Est. Patient 11:08:12 [employer]ER Checo Conklin MD [facility] CPT-48245 Level 4 Est. Patient 16:06:48 FORM [employer]ER Checo Conklin MD [facility] CPT-97529 Level 3 Est. Patient 09:11:49 CDT Efren almendarez [facility] CPT-90627 Level 2 Est. Patient 19:53:27 CDT Tanner hill MD [facility] CPT-26248 Level 3 Est. Patient 09:15:34 CDT Efren almendarez [facility] CPT-23517 Level 3 Est. 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 Patient 17:10:53 CDT Checo Conklin MD [facility] CPT-11885 Level 3 Est. Patient 15:56:22 CDT Checo Conklin MD [facility] CPT-57086 Level 3 Est. Patient 15:29:07 CDT Cehco Conklin MD [facility] CPT-85393 Level 3 Est. Patient 14:38:41 CDT Checo Conklin MD [facility] CPT-73563 Level 3 Est. Patient 15:22:03 [employer] Thomas reynolds DO [facility] CPT-89589 Level 3 Est. Patient 13:34:17 [employer]ER Checo Conklin MD [facility] CPT-46396 Level 3 Est. Patient 12:29:32 CDT Dangelo arroyo MD [facility] CPT-95569 Level 3 Est. Patient 16:53:02 CDT Checo Conklin MD [facility] CPT-92635 Level 3 Est. Patient 16:37:13 CDT Checo Conklin MD [facility] CPT-83494 Level 3 Est. Patient 16:16:59 CDT Paul Hamlin MD [facility] CPT-76504 Level 3 Est. Patient 14:20:13 CDT Dangelo arroyo MD [facility] CPT-34110 Level 4 Est. Patient 11:29:33 CDT Checo Conklin MD [facility] CPT-94455 Level 3 Est. Patient 17:08:31 CDT Checo Conklin MD [facility] CPT-73236 Level 3 Est. Patient 16:50:42 [employer]ER Checo Conklin MD [facility] CPT-80677 Level 4 Est. 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 CPT-03666 Level 3 Est. Patient 11:37:10 CDT Checo Conklin MD [facility] CPT-03867 Level 4 Est. Patient 14:07:38 CDT Checo Conklin MD [facility] CPT-02931 Level 3 Est. Patient 09:54:41 CDT Checo Conklin MD [facility] CPT-44415 Level 3 Est. Patient 11:10:54 CDT Paul Hamlin MD [facility] CPT-93385 Level 3 Est. Patient 14:16:56 [employer]ER Checo Conklin MD [facility] CPT-61919 Level 3 Est. Patient 11:04:11 FOR[employer]ER Checo Conklin MD [facility] CPT-59058 Level 3 Est. Patient 17:09:26 CDT Dangelo arroyo MD [facility] CPT-01431 Level 3 Est. Patient 16:54:37 CDT Checo Conklin MD [facility] Procedures Code Procedure Name Date Entry Date Standard Desc ription CPT-01175 Abx/Therapy Injection 09:52:15 CDT CPT-54607 Abx/Therapy Injection 18:17:48 CDT CPT-J2550 Phenergan 25 mg (Promethazine) 16:48:23 CDT CPT-J1885 Toradol 60 mg 16:48:23 CDT CPT-33125 Wrist, right, comp 3V - XRAY USE ONLY 09:24:31 CDT CPT-16956 Abd compl w upright - XRAY USE ONLY 1 1:36:54 [employer] CPT-41998 UA w micro - LAB USE ONLY 17:06:46 CDT 2015 CPT-11895 [facility] Qual - LAB USE ONLY 17:06:46 CDT 05/06 CPT-16034 CMP - LAB USE ONLY 17:06:46 CDT CPT-08007 CBC with Diff - LAB USE ONLY 17:06:45 CDT 2 CPT-10907 Venipuncture Draw Fee 17:06:45 CDT CPT-LR Lesion Removal 19:53:27 CDT CPT-OV Office Visit 11:31:28 CDT CPT-52815 Tubersol 09:39:29 CDT CPT-J2550 Phenergan 25 mg (Promethazine) 13:59:02 [employer] CPT-J1885 Toradol 60 mg (Ketorolac) 13:59:02 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
--- OUTSIDE RECORDS SUMMARY | 2019-09-29 01:10 | XMS REPORT | Clinical Summary ---
Author Author Admin, Bethany Gonzales Organization [employer] Address Unknown Phone Unavailable Allergies, Adverse Reactions, [...] 2 weeks if needed CITALOPRAM HYDRO BROMIDE 02463887989 Active 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 APRN-C Active PROZAC 10 MG ORAL CAPSULE 1 PO Daily FLUOXETINE HCL 55954597625 No Longer Active 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 APRN-Majo Active VYVANSE 30 MG ORAL CAPSULE 1 PO daily LISDEXAMF ETAMINE DIMESYLATE 62663711638 Active 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 BRICK MACHINE OPERATOR-C Active XANAX 0.5 MG ORAL TABLET 1 tablet PO BID; PRN A LPRAZOLAM 01206641350 Active Radhasantos Whitaker BRICK MACHINE OPERATOR-C Active SIMVASTATIN 20 MG ORAL TABLET 1 tablet PO daily SI MVASTATIN 68808090063 Active Radhasantos Whitaker BRICK MACHINE OPERATOR-C Active IBUPROFEN 800 MG ORAL TABLET 1 tablet PO q8hr PRN IBUPROFEN 26553910228 Active Radhasantos Whitaker BRICK MACHINE OPERATOR-C Active AMBIEN 5 MG ORAL TABLET 1 tablet PO once daily; PRN ZOLPIDEM TARTRATE 99914019373 Active 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 BRICK MACHINE OPERATOR-C Active ALBUTEROL SULFATE HFA 108 (90 BASE) MCG/ACT INHALATION AEROSOL SOLUTION 2 puffs, INH, q4hr PRN ALBUTEROL SULFATE 22575951190 Active Radha Sherman A PRN-C Active AMBIEN 5 MG ORAL TABLET 1 po qHS PRN Insomnia ZOLPIDEM TARTRATE 16893332942 No Longer Active 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 APRN-C Active XANAX 0.5 MG ORAL TABLET 1 po BID PRN anxiety A LPRAZOLAM 66214804456 No Longer Active 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 BRICK MACHINE OPERATOR-C Active PAROXETINE HCL 40 MG ORAL TABLET 1 po qd PAR OXETINE HCL 44985732799 No Longer Active 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 BRICK MACHINE OPERATOR-C Active FOCALIN XR 10 MG ORAL CAPSULE EXTENDED RELEASE 24 HOUR 1 po q a. m. DEXMETHYLPHENIDATE HCL 68331269157 No Longer Active Radha Low BRICK MACHINE OPERATOR-C Active SIMVASTATIN 20 MG ORAL TABLET 1 po qd SIMVAS TATIN 50055219781 No Longer Active 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 BRICK MACHINE OPERATOR-C Active FUROSEMIDE 20 MG ORAL TABLET 1 daily for swelling 2018 FUROSEMIDE 27936526931 No Longer Active 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 BRICK MACHINE OPERATOR-C Active KLOR-CON 10 10 MEQ ORAL TABLET EXTENDED RELEASE 1 daily with furosemide POTASSIUM CHLORIDE 00557591662 No Longer Active 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 BRICK MACHINE OPERATOR-C Active HYDROCHLOROTHIAZIDE 12.5 MG ORAL CAPSULE 1 po qd PRN Edema 01/10 HYDROCHLOROTHIAZIDE 82527556849 No Longer Active Paul Hamlin MD Active IBUPROFEN 800 MG ORAL TABLET 1 tab every 8 hours as needed for p ain IBUPROFEN 79208809178 No Longer Active Paul Hamlin MD Active MIRALAX ORAL POWDER 8.5 to 17g po qd PRN Constipation POLYETHYLENE GLYCOL 3350 55362450564 No Longer Active Checo Conklin MD Active PROTONIX 40 MG ORAL TABLET DELAYED RELEASE 1 pill by [facility] daily, for acid reflux PANTOPRAZOLE SODIUM 88119450308 No Longer Activ e Corry Méndez LPN Active FLAGYL 500 MG ORAL TABLET 1 tablet by mouth bid 08/29 METRONIDAZOLE 57974565941 No Longer Active Corry Méndez LPN Active CLARITHROMYCIN 500 MG ORAL TABLET 1 tab po BID x 14 days CLARITHROMYCIN 60462073237 No Longer Active Corry Méndez LPN Active AMOXICILLIN 500 MG ORAL CAPSULE 2 po BID x 14 days for H. Pylori AMOXICILLIN 72219686715 No Longer Active Corry Méndez LPN Active FLUTICASONE PROPIONATE 50 MCG/ACT NASAL SUSPENSION 2 s prays/nostril qd PRN Congestion/Allergies FLUTICASONE PROPIONATE 2432920554 9 No Longer Active Checo Conklin MD Active AMOXICILLIN 500 MG ORAL CAPSULE 2 po BID x 10 days 201 01/15/27 AMOXICILLIN 80506726711 No Longer Active Checo Conklin MD Activ e CLARITIN 10 MG ORAL TABLET 1 tablet by mouth daily as needed for allergies LORATADINE 88063255474 No Longer Active Checo Ortiz MD Active BACTRIM DS 800-160 MG ORAL TABLET 1 tab by mouth twice daily 201 12/19/26 TRIMETHOPRIM-SULFAMETHOXAZOLE 34441980856 No Longer Active Ragini Carrillo MD Active DIFLUCAN 150 MG ORAL TABLET 1 tablet by mouth qod 2015 FLUCONAZOLE 88693875041 No Longer Active Efren Medel BRICK MACHINE OPERATOR Act mike AZITHROMYCIN 250 MG ORAL TABLET 2 po qd x 1 day, then 1 po q d x 4 days AZITHROMYCIN 03007216183 No Longer Active Efren flores BRICK MACHINE OPERATOR Active FLAGYL 500 MG ORAL TABLET 1 tablet by mouth bid 04/13 METRONIDAZOLE 19017732949 No Longer Active Checo Conklin MD Acti ve MAGNESIUM CITRATE 1.745 GM/30ML ORAL SOLUTION 150ml po BID P RN Constipation MAGNESIUM CITRATE 44141168979 No Longer Active Checo Conklin MD Active BACTROBAN 2 % EXTERNAL CREAM Apply to affected area BID for up to 10 days MUPIROCIN CALCIUM 13174382577 No Longer Active Checo Conklin MD Active HYDROCODONE-ACETAMINOPHEN 5-325 MG ORAL TABLET 1 tab b y mouth every 6 hours as needed HYDROCODONE-ACETAMINOPHEN 01494069268 No Longer Active Checo Conklin MD Active IBUPROFEN 800 MG ORAL TABLET 1 tab every 8 hours with food 03/20 IBUPROFEN 70301722423 No Longer Active Checo Conklin MD Active DIFLUCAN 150 MG ORAL TABLET 1 tablet by mouth if neede d, hold until symptoms start FLUCONAZOLE 73713452535 No Longer Active Checo Conklin MD Active BACTRIM DS 800-160 MG ORAL TABLET 1 tab by mouth twice daily 201 11/23/03 TRIMETHOPRIM-SULFAMETHOXAZOLE 45410598759 No Longer Active Bonnie Méndez LPN Active HYDROCODONE-ACETAMINOPHEN 5-325 MG ORAL TABLET 0.5 to 1 tab by mouth every 6 hours as needed HYDROCODONE-ACETAMINOPHEN 86997506088 No Longer Active Checo Conklin MD Active ONDANSETRON 8 MG ORAL TABLET DISINTEGRATING place one tablet on tongue and allow to dissolve every 6 hours as needed for vomitting ONDANSETRON 24482665314 No Longer Active Checo Conklin MD Activ e COMPRO 25 MG RECTAL SUPPOSITORY insert or apply one garza ppository rectally as directed every 12 hours as needed for nausea PROCHLORPERAZINE 45099828467 No Longer Active Checo Conklin MD A ctive SUMATRIPTAN SUCCINATE 100 MG ORAL TABLET Take one PRN for migran e SUMATRIPTAN SUCCINATE 24249096142 No Longer Active Checo Conklin MD Active TRAVEL SICKNESS 25 MG ORAL TABLET CHEWABLE chew and sw allow one tablet every 6 hours as needed MECLIZINE HCL 98889256167 No Longer A ctive Checo Conklin MD Active BUPROPION HCL ER (SR) 100 MG ORAL TABLET EXTENDED RELE ASE 12 HOUR take one tablet by mouth one time daily for one week then take 1 two times daily BUPROPION HCL 13048187065 No Longer Active Checo gallagher MD Active TERBINAFINE HCL 250 MG ORAL TABLET take one table PO one time da moises TERBINAFINE HCL 14859709443 No Longer Active Checo Conklin MD Active METOCLOPRAMIDE HCL 10 MG ORAL TABLET take one PO tid PRN nausea METOCLOPRAMIDE HCL 71669900950 No Longer Active Checo Conklin MD Active DICLOFENAC SODIUM 75 MG ORAL TABLET DELAYED RELEASE 1 tablet by mouth twice daily PRN Knee pain DICLOFENAC SODIUM 73235792722 No Longer Active Checo Conklin MD Active LAMISIL 250 MG ORAL TABLET 1 po qd TERBINAFI NE HCL 09503031260 No Longer Active Checo Conklin MD Active REGLAN 10 MG ORAL TABLET 1 po TID PRN Nausea 3 METOCLOPRAMIDE HCL 58319464546 No Longer Active Checo Conklin MD Active CELEXA 20 MG ORAL TABLET 1 tablet by mouth daily 09/26 CITALOPRAM HYDROBROMIDE 81647787280 No Longer Active Checo Conklin MD Active AZITHROMYCIN 250 MG ORAL TABLET 2 po qd x 1 day, then 1 po q d x 4 days AZITHROMYCIN 26261075650 No Longer Active Checo Ortiz MD Active HYDROCODONE-ACETAMINOPHEN 5-325 MG ORAL TABLET 1 po q 6hr PRN Pa in HYDROCODONE-ACETAMINOPHEN 20681414019 No Longer Active Lenora Conklin MD Active PHENAZOPYRIDINE HCL 200 MG ORAL TABLET take 1 tab po TID for bladder pain PHENAZOPYRIDINE HCL 50092756735 No Longer Active Joe Conklin MD Active CIPRO 500 MG ORAL TABLET 1 tablet by mouth twice daily CIPROFLOXACIN HCL 40663969421 No Longer Active Dangelo Rangel MD Active HYDROCODONE-ACETAMINOPHEN 5-325 MG ORAL TABLET 1/2 to 1 po q 4 hours prn cough HYDROCODONE-ACETAMINOPHEN 74836454442 No Longer Activ e Dangelo Rangel MD Active BACTRIM DS 800-160 MG ORAL TABLET 1 po BID x 7 days 29/04/10 SULFAMETHOXAZOLE-TRIMETHOPRIM 11349843880 No Longer Active Checo Conklin MD Active PREDNISONE 20 MG ORAL TABLET 2 tabs daily for 3 days, 1 tab daily for 3 days, 1/2 tab daily for 2 days PREDNISONE 03639258126 No Longer Active Checo Conklin MD Active TRIAMCINOLONE ACETONIDE 0.1 % EXTERNAL OINTMENT Apply to affected areas TID for up to 2 weeks TRIAMCINOLONE ACETONIDE 16482188720 No Longer Active Checo Conklin MD Active CEFDINIR 300 MG ORAL CAPSULE by mouth twice a day 2013 CEFDINIR 85613884333 No Longer Active Dangelo Rangel MD Acti ve BUPROPION HCL ER (SMOKING DET) 150 MG ORAL TABLET EXTE NDED RELEASE 12 HOUR 1 a day for 1 week then 1 twice a day BUPROPION HCL (SMOKING DETER) 51151302390 No Longer Active Checo Conklin MD Active CHANTIX STARTING MONTH KARTHIK 0.5 MG X 11 & 1 MG X 42 ORA L TABLET 0.5mg daily for 3 days, then 0.5mg BID for 4 days, then 1mg BID VARENICLINE TARTRATE 05657213557 No Longer Active Checo Conklin MD Activ e CONCERTA 18 MG ORAL TABLET EXTENDED RELEASE 1 po q a.m. METHYLPHENIDATE HCL 84556545686 No Longer Active Checo Conklin MD Active TRAZODONE HCL 100 MG ORAL TABLET 0.5 to 1 po qHS PRN Insomnia 20 30/07/08 TRAZODONE HCL 30268469779 No Longer Active Checo Conklin MD Active FIORICET 325-50-40 MG TAB 1 tablet by mouth four times daily as needed [id number] 40508341883 No Longer Active Checo Conklin MD Active PHENERGAN CREAM* 25mg applied to wrist q6hr PRN Nausea PHENERGAN CREAM* No Longer Active Checo Conklin MD A ctive FLONASE 50 MCG/ACT NASAL SUSPENSION 1 spray each nostril am and hs FLUTICASONE PROPIONATE 74839179342 No Longer Active Checo Conklin MD Active ANTIPYRINE-BENZOCAINE 5.4-1.4 % OTIC SOLUTION 1-2 drops in affec yohannes ear BENZOCAINE-ANTIPYRINE 27214335134 No Longer Active Checo Conklin MD Active CEFDINIR 300 MG ORAL CAPSULE 1 po bid CEFDINIR 13758228220 No Longer Active Checo Conklin MD Active PREDNISONE 20 MG ORAL TABLET 2 tabs daily for 3 days, 1 tab daily for 3 days, 1/2 tab daily for 2 days PREDNISONE 63950122266 No Longer Active Checo Conklin MD Active AZITHROMYCIN 250 MG ORAL TABLET 2 po qd x 1 day, then 1 po q d x 4 days AZITHROMYCIN 35663007289 No Longer Active Checo Ortiz MD Active PREDNISONE 20 MG ORAL TABLET 2 tabs daily for 3 days, 1 tab daily for 3 days, 1/2 tab daily for 2 days PREDNISONE 93452861433 No Longer Active Checo Conklin MD Active ZITHROMAX Z-KARTHIK 250 MG ORAL TABLET 2 today, then 1 daily for 4 d ays AZITHROMYCIN 61878103861 No Longer Active Paul Hamlin MD Active FOCALIN XR 10 MG ORAL CAPSULE EXTENDED RELEASE 24 HOUR 1 po q a. m. DEXMETHYLPHENIDATE HCL 14738799363 No Longer Active Paul Hamlin MD Active PERCOCET 10-325 MG ORAL TABLET 1 tablet every 6 hours as needed for pain OXYCODONE-ACETAMINOPHEN 50307315522 No Longer Active Paul Hamlin MD Active LORTAB 5-500 MG ORAL TABLET 1/2 to 1 tablet by mouth e very 4 hours as needed for pain HYDROCODONE-ACETAMINOPHEN 76699548406 No Longer Active Checo Conklin MD Active FOCALIN XR 15 MG ORAL CAPSULE EXTENDED RELEASE 24 HOUR 1 po q a. m. DEXMETHYLPHENIDATE HCL 01957658217 No Longer Active Checo Conklin MD Active ZOFRAN ODT 4 MG ORAL TABLET DISINTEGRATING 1 po q6hr PRN Nausea ONDANSETRON 97893218213 No Longer Active Checo Conklin MD Active PERCOCET 5-325 MG ORAL TABLET 1 tablet by mouth every 6 hour s as needed OXYCODONE-ACETAMINOPHEN 03666824501 No Longer Active Checo Conklin MD Active PYRIDIUM 200 MG ORAL TABLET take 1 tab po TID prn urinary pain. PHENAZOPYRIDINE HCL 60439457665 No Longer Active Checo Joshua Active FLUCONAZOLE 150 MG ORAL TABLET take 1 tab po qday once FLUCONAZOLE 86371695858 No Longer Active Dangelo Rangel MD Acti ve CIPRO 500 MG ORAL TABLET 1 tablet by mouth twice daily CIPROFLOXACIN HCL 86229851417 No Longer Active Dangelo Rangel MD Active PYRIDIUM 200 MG ORAL TABLET take 1 tab po TID prn urinary pain. PYRIDIUM 200 MG ORAL TABLET 9868805 PHENAZOPYRIDINE HCL Inactive PERCOCET 5-325 MG ORAL TABLET 1 tablet by mouth every 6 hour s as needed PERCOCET 5-325 MG ORAL TABLET 9674237 OXYCODONE-ACETAMINOPHEN Inactive ZOFRAN ODT 4 MG ORAL [...] for pain PERCOCET 10-325 MG ORAL TABLET 5360427 OXYCODONE-ACETAMI NOPHEN Inactive FOCALIN XR 10 MG ORAL CAPSULE EXTENDED RELEASE 24 HOUR 1 po q a. m. FOCALIN XR 10 MG ORAL CAPSULE EXTENDED RELEASE 24 HOUR DEXMETHYLPHENIDATE HCL Inactive CEFDINIR 300 MG ORAL CAPSULE 1 po bid CEFDINI R 300 MG ORAL CAPSULE 362749 CEFDINIR Inactive ANTIPYRINE-BENZOCAINE 5.4-1.4 % OTIC SOLUTION [...] 30/07/08 TRAZODONE HCL 100 MG ORAL TABLET 346895 TRAZODONE HCL Inactive CONCERTA 18 MG ORAL [...] cough HYDROCODONE-ACETAMINOPHEN 5-325 MG ORAL TABLET 8 66310 HYDROCODONE-ACETAMINOPHEN Inactive PHENAZOPYRIDINE HCL 200 MG ORAL TABLET take 1 tab po TID for bladder pain PHENAZOPYRIDINE HCL 200 MG ORAL TABLET 1317611 PHENAZOPYRIDINE HCL Inactive HYDROCODONE-ACETAMINOPHEN 5-325 MG ORAL TABLET 1 po q 6hr PRN Pa in HYDROCODONE-ACETAMINOPHEN 5-325 MG ORAL TABLET 540708 HYDROCODONE-ACETAMINOPHEN Inactive CELEXA 20 MG ORAL TABLET 1 tablet by mouth daily 09/26 CELEXA 20 MG ORAL TABLET 893820 CITALOPRAM HYDROBROMIDE Inactive REGLAN 10 MG ORAL TABLET 1 po TID PRN Nausea 3 REGLAN 10 MG ORAL TABLET 869857 METOCLOPRAMIDE HCL Inactive LAMISIL 250 MG ORAL TABLET 1 po qd L AMISIL 250 MG ORAL TABLET 063902 TERBINAFINE HCL Inactive DICLOFENAC SODIUM 75 MG ORAL TABLET DELAYED RELEASE 1 tablet by mouth twice daily PRN Knee pain DICLOFENAC SODIUM 75 MG ORAL TABLET DELAYED RELEASE 061639 DICLOFENAC SODIUM Inactive METOCLOPRAMIDE HCL 10 MG ORAL TABLET take one PO tid PRN nausea METOCLOPRAMIDE HCL 10 MG ORAL TABLET 532417 METOCLOPRAM ZACH HCL Inactive TERBINAFINE HCL 250 MG ORAL TABLET take one table PO one time da moises TERBINAFINE HCL 250 MG ORAL TABLET 106005 TERBINAFINE H CL Inactive BUPROPION HCL ER [...] SICKNESS 25 M G ORAL TABLET CHEWABLE 710273 MECLIZINE HCL Inactive SUMATRIPTAN SUCCINATE 100 MG ORAL TABLET Take one PRN for migran e SUMATRIPTAN SUCCINATE 100 MG ORAL TABLET 164583 SUMATRIPTAN SUCCINATE Inactive COMPRO 25 MG RECTAL SUPPOSITORY insert or apply one garza ppository rectally as directed every 12 hours as needed for nausea COMPRO 25 MG RECTAL SUPPOSITORY 408596 PROCHLORPERAZINE Inactive ONDANSETRON 8 MG ORAL TABLET DISINTEGRATING place one tablet on tongue and allow to dissolve every 6 hours as needed for vomitting ONDANSETRON 8 MG ORAL TABLET DISINTEGRATING 763704 ONDANSETRON Inactive HYDROCODONE-ACETAMINOPHEN 5-325 MG ORAL TABLET 0.5 to 1 tab by mouth every 6 hours as needed HYDROCODONE-ACETAMIN OPHEN 5-325 MG ORAL TABLET 564360 HYDROCODONE-ACETAMINOPHEN Inactive BACTRIM DS 800-160 MG ORAL TABLET 1 tab by mouth twice daily 201 11/23/03 BACTRIM DS 800-160 MG ORAL TABLET 203231 TRIMETHOPRIM-SULFAMETHOXAZOLE Inactive DIFLUCAN 150 MG ORAL TABLET [...] as needed HYDROCODONE-ACETAMINOPHEN 5-325 MG ORAL TABLET 812824 HYDROCODONE-ACETAMINOPHEN Inactive BACTROBAN 2 % EXTERNAL CREAM Apply to affected area BID for up to 10 days BACTROBAN 2 % EXTERNAL CREAM MUPIROCIN CA LCIUM Inactive MAGNESIUM CITRATE 1.745 GM/30ML ORAL SOLUTION 150ml po BID P RN Constipation MAGNESIUM CITRATE 1.745 GM/30ML ORAL SOLUTION 10 28573 MAGNESIUM CITRATE Inactive DIFLUCAN 150 MG ORAL TABLET 1 tablet by mouth qod 2015 DIFLUCAN 150 MG ORAL TABLET 465571 FLUCONAZOLE Inactive BACTRIM DS 800-160 MG ORAL TABLET 1 tab by mouth twice daily 201 12/19/26 BACTRIM DS 800-160 MG ORAL TABLET 263952 TRIMETHOPRIM-SULFAMETHOXAZOLE Inactive CLARITIN 10 MG ORAL TABLET 1 tablet by mouth daily as needed for allergies CLARITIN 10 MG ORAL TABLET 160741 LORATADINE I nactive FLUTICASONE PROPIONATE 50 MCG/ACT NASAL SUSPENSION 2 s prays/nostril qd PRN Congestion/Allergies FLUTICASONE PROPION ATE 50 MCG/ACT NASAL SUSPENSION 7816478 FLUTICASONE PROPIONATE Inactive MIRALAX ORAL POWDER 8.5 to 17g po qd PRN Constipation MIRALAX ORAL POWDER 751412 POLYETHYLENE GLYCOL 3350 Inactive IBUPROFEN 800 MG ORAL TABLET 1 tab every 8 hours as needed for p ain IBUPROFEN 800 MG ORAL TABLET 242925 IBUPROFEN [place] ctive HYDROCHLOROTHIAZIDE 12.5 MG ORAL CAPSULE 1 po qd PRN Edema 01/10 HYDROCHLOROTHIAZIDE 12.5 MG ORAL CAPSULE 735874 HYDROCH LOROTHIAZIDE Inactive KLOR-CON 10 10 MEQ ORAL TABLET EXTENDED RELEASE 1 daily with furosemide KLOR-CON 10 10 MEQ ORAL TABLET EXTENDED RELEASE POTASSIUM CHLORIDE Inactive FUROSEMIDE 20 MG ORAL TABLET 1 daily for swelling 2018 FUROSEMIDE 20 MG ORAL TABLET 730298 FUROSEMIDE Inactive SIMVASTATIN 20 MG ORAL TABLET 1 po qd SIMVASTATIN 20 MG ORAL TABLET 378359 SIMVASTATIN Inactive FOCALIN XR 10 MG ORAL CAPSULE EXTENDED RELEASE 24 HOUR 1 po q a. m. FOCALIN XR 10 MG ORAL CAPSULE EXTENDED RELEASE 24 HOUR DEXMETHYLPHENIDATE HCL Inactive PAROXETINE HCL 40 MG ORAL TABLET 1 po qd PAROXETINE HCL 40 MG ORAL TABLET 0758037 PAROXETINE HCL Inactive XANAX 0.5 MG ORAL TABLET 1 po BID PRN anxiety XANAX 0.5 MG ORAL TABLET 315867 ALPRAZOLAM Inactive AMBIEN 5 MG ORAL TABLET 1 po qHS PRN Insomnia AMBIEN 5 MG ORAL TABLET 504341 ZOLPIDEM TARTRATE Inactive PROZAC 10 MG ORAL CAPSULE 1 PO Daily MN OZAC 10 MG ORAL CAPSULE 614908 FLUOXETINE HCL Inactive CIPRO 500 MG ORAL TABLET 1 tablet by mouth twice daily CIPRO 500 MG ORAL TABLET 946150 CIPROFLOXACIN HCL Inactive FLUCONAZOLE 150 MG ORAL TABLET take 1 tab po qday once FLUCONAZOLE 150 MG ORAL TABLET 738182 FLUCONAZOLE Inactive ZITHROMAX Z-KARTHIK 250 MG ORAL TABLET 2 today, then 1 daily for 4 d ays ZITHROMAX Z-KARTHIK 250 MG ORAL TABLET 280663 AZITHROMYCIN Inactive PREDNISONE 20 MG ORAL TABLET 2 tabs daily for 3 days, 1 tab daily for 3 days, 1/2 tab daily for 2 days PREDNISONE 20 MG ORAL T ABLET 956289 PREDNISONE Inactive AZITHROMYCIN 250 MG ORAL TABLET 2 po qd x 1 day, then 1 po q d x 4 days AZITHROMYCIN 250 MG ORAL TABLET 767798 AZITHROMY SPARKLE Inactive PREDNISONE 20 MG ORAL TABLET 2 tabs daily for 3 days, 1 tab daily for 3 days, 1/2 tab daily for 2 days PREDNISONE 20 MG ORAL TABLET 595906 PREDNISONE Inactive CEFDINIR 300 MG ORAL CAPSULE by mouth twice a day 2013 CEFDINIR 300 MG ORAL CAPSULE 617987 CEFDINIR Inactive TRIAMCINOLONE ACETONIDE 0.1 % EXTERNAL OINTMENT Apply to affected areas TID for up to 2 weeks TRIAMCINOLONE ACETON ZACH 0.1 % EXTERNAL OINTMENT 0160770 TRIAMCINOLONE ACETONIDE Inactive PREDNISONE 20 MG ORAL TABLET 2 tabs daily for 3 days, 1 tab daily for 3 days, 1/2 tab daily for 2 days PREDNISONE 20 MG ORAL T ABLET 387350 PREDNISONE Inactive BACTRIM DS 800-160 MG ORAL TABLET 1 po BID x 7 days 29/04/10 BACTRIM DS 800-160 MG ORAL TABLET 115939 SULFAMETHOXAZOLE-TRIMETHOP RIM Inactive CIPRO 500 MG ORAL TABLET 1 tablet by mouth twice daily CIPRO 500 MG ORAL TABLET 246226 CIPROFLOXACIN HCL Inactive AZITHROMYCIN 250 MG ORAL TABLET 2 po qd x 1 day, then 1 po q d x 4 days AZITHROMYCIN 250 MG ORAL TABLET 571328 AZITHROMY SPARKLE Inactive FLAGYL 500 MG ORAL TABLET 1 tablet by mouth bid 04/13 FLAGYL 500 MG ORAL TABLET 044591 METRONIDAZOLE Inactive AZITHROMYCIN 250 MG ORAL TABLET 2 po qd x 1 day, then 1 po q d x 4 days AZITHROMYCIN 250 MG ORAL TABLET 564833 AZITHROMY SPARKLE Inactive AMOXICILLIN 500 MG ORAL CAPSULE 2 po BID x 10 days 201 01/15/27 AMOXICILLIN 500 MG ORAL CAPSULE 476067 AMOXICILLIN Inactive AMOXICILLIN 500 MG ORAL CAPSULE 2 po BID x 14 days for [facility] Pylori AMOXICILLIN 500 MG ORAL CAPSULE 343229 AMOXICILLIN Inactive CLARITHROMYCIN 500 MG ORAL TABLET 1 tab po BID x 14 days CLARITHROMYCIN 500 MG ORAL TABLET 908327 CLARITHROMYCIN Inacti ve FLAGYL 500 MG ORAL TABLET 1 tablet by mouth bid 08/29 FLAGYL 500 MG ORAL TABLET 153109 METRONIDAZOLE Inactive PROTONIX 40 MG ORAL TABLET DELAYED RELEASE 1 pill by m outh daily, for acid reflux PROTONIX 40 MG ORAL TABLET DELAYED RELEAS E 652769 PANTOPRAZOLE SODIUM Inactive Immunizations Vaccine Administration Date [...] Panel - Chemistry sodium, serum 142 mmol/L 223-464 0621/07/22 carbon dioxide, venous blood 26.3 mmol/L 21.0-32 [...] 0.80 mg/dL 0.00-1.00 cholesterol, serum 172 mg/dL 022-390 1460/07/22 triglyceride, serum, fasting 222 mg/dL 30-200 HDL [...] 0-29 Encounters Code Encounter Date Provider Facility CPT-42244 Level 3 Est. Patient 06:02:19 CDT [facility] Level 3 Est. Patient 09:11:53 CDT Radha de la rosa [facility] CPT-15154 Level 3 Est. Patient 16:46:51 CDT Thomas reynolds DO [facility] CPT-54111 [id number] Vst-Est Level III 14:40:49 CDT Paul Hamlin MD [facility] CPT-32226 Level 4 Est. Patient 11:08:43 CDT Checo Conklin MD [facility] CPT-79150 [id number] Vst-Est Level III 09:37:41 CDT Dangelo Rangel MD [facility] CPT-11946 Level 4 Est. Patient 08:57:51 NON PROFIT JOB TITLES Checo Conklin MD [facility] CPT-12800 Level 3 Est. Patient 11:24:55 NON PROFIT JOB TITLES Efren almendarez [facility] CPT-40259 Level 3 Est. Patient 13:05:44 CDT Paul Hamlin MD [facility] CPT-72876 Level 3 Est. Patient 11:29:55 CDT Checo Conklin MD [facility] CPT-07551 Level 4 Est. Patient 11:08:12 NON PROFIT JOB TITLES Checo Conklin MD [facility] CPT-17498 Level 4 Est. Patient 16:06:48 NON PROFIT JOB TITLES Checo Conklin MD [facility] CPT-81743 Level 3 Est. Patient 09:11:49 CDT Efren almendarez [facility] CPT-98147 Level 2 Est. Patient 19:53:27 CDT Tanner hill MD [facility] CPT-89295 Level 3 Est. Patient 09:15:34 CDT Efren almendarez [facility] CPT-20291 Level 3 Est. Patient 11:28:51 NON PROFIT JOB TITLES Efren almendarez [facility] CPT-19672 Level 4 Est. Patient 13:55:46 NON PROFIT JOB TITLES Checo Conklin MD [facility] CPT-23881 Level 4 Est. Patient 17:10:53 CDT Checo Conklin MD [facility] CPT-28535 Level 3 Est. Patient 15:56:22 CDT Checo Conklin MD [facility] CPT-97803 Level 3 Est. Patient 15:29:07 CDT Checo Conklin MD [facility] CPT-38954 Level 3 Est. Patient 14:38:41 CDT Checo Conklin MD [facility] CPT-98375 Level 3 Est. Patient 15:22:03 NON PROFIT JOB TITLES Thomas reynolds DO [facility] CPT-15176 Level 3 Est. Patient 13:34:17 NON PROFIT JOB TITLES Checo Conklin MD [facility] CPT-94818 Level 3 Est. Patient 12:29:32 CDT Dangelo arroyo MD [facility] CPT-37109 Level 3 Est. Patient 16:53:02 CDT Checo Conklin MD [facility] CPT-40240 Level 3 Est. Patient 16:37:13 CDT Checo Conklin MD [facility] CPT-23277 Level 3 Est. Patient 16:16:59 CDT Paul Hamlin MD [facility] CPT-99800 Level 3 Est. Patient 14:20:13 CDT Dangelo arroyo MD [facility] CPT-74635 Level 4 Est. Patient 11:29:33 CDT Checo Conklin MD [facility] CPT-60815 Level 3 Est. Patient 17:08:31 CDT Checo Conklin MD [facility] CPT-04805 Level 3 Est. Patient 16:50:42 NON PROFIT JOB TITLES Checo Conklin MD [facility] CPT-47185 Level 4 Est. Patient 09:26:08 NON PROFIT JOB TITLES Checo Conklin MD [facility] CPT-29530 Level 3 Est. Patient 11:37:10 CDT Checo Conklin MD [facility] CPT-74301 Level 4 Est. Patient 14:07:38 CDT Checo Conklin MD [facility] CPT-82767 Level 3 Est. Patient 09:54:41 CDT Checo Conklin MD [facility] CPT-51085 Level 3 Est. Patient 11:10:54 CDT Paul Hamlin MD [facility] CPT-33858 Level 3 Est. Patient 14:16:56 NON PROFIT JOB TITLES Checo Conklin MD [facility] CPT-34414 Level 3 Est. Patient 11:04:11 NON PROFIT JOB TITLES Checo Conklin MD [facility] CPT-55214 Level 3 Est. Patient 17:09:26 CDT Dangelo arroyo MD [facility] CPT-76054 Level 3 Est. Patient 16:54:37 CDT Checo Conklin MD [facility] Procedures Code Procedure Name Date Entry Date Standard Desc ription CPT-24559 Abx/Therapy Injection 09:52:15 CDT CPT-38632 Abx/Therapy Injection 18:17:48 CDT CPT-J2550 Phenergan 25 mg (Promethazine) 16:48:23 CDT CPT-J1885 Toradol 60 mg 16:48:23 CDT CPT-99170 Wrist, right, comp 3V - XRAY USE ONLY 09:24:31 CDT CPT-17846 Abd compl w upright - XRAY USE ONLY 1 1:36:54 NON PROFIT JOB TITLES CPT-99353 UA w micro - LAB USE ONLY 17:06:46 CDT 2015 CPT-48978 [facility] Qual - LAB USE ONLY 17:06:46 CDT 05/06 CPT-65464 CMP - LAB USE ONLY 17:06:46 CDT CPT-98123 CBC with Diff - LAB USE ONLY 17:06:45 CDT 2 CPT-85521 Venipuncture Draw Fee 17:06:45 CDT CPT-LR Lesion Removal 19:53:27 CDT CPT-OV Office Visit 11:31:28 CDT [id number] Tubersol 09:39:29 CDT CPT-J2550 Phenergan 25 mg (Promethazine) 13:59:02 NON PROFIT JOB TITLES CPT-J1885 Toradol 60 mg (Ketorolac) 13:59:02 NON PROFIT JOB TITLES 2012
--- OUTSIDE RECORDS SUMMARY | 2019-09-29 01:11 | XMS REPORT | Clinical Summary ---
Author Author Admin, Bethany Gonzales Organization [employer] Address Unknown Phone Unavailable Allergies, Adverse Reactions, [...] Index 27.0-27.9 Adult Resolved 2018 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 FIBER TECHNOLOGIST-C Body Mass Index 27.0-27.9, adult Body Mass Index 26.0-26.9 Adult Refinement 2017 Thomas Marks DO Body Mass Index 26.0-26.9, adult BMI 25-25.9 Active 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 FIBER TECHNOLOGIST-C Body Mass Index 26.0-26.9, adult Wellness examination, routine medical V70.0 Active 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 FIBER TECHNOLOGIST-C Routine general medical examination at a health care facility Hypertension 401.9 Active 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 FIBER TECHNOLOGIST-C Unspecified essential hypertension Screening for cardiovascular condition V81.2 Active 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 APRN-C Screening for other and unspecified card iovascular conditions BREAST CANCER ICD-V16.3 Inactive Checo Joshua FH DIABETES ICD-V18.0 Inactive Checo Conklin MD 201 08/27/26 CONCUSSION ICD-850.9 Inactive Checo Joshua UTI ICD-599.0 Inactive Checo Conklin MD 2013 ABDOMINAL PAIN RIGHT LOWER QUADRANT ICD-789.03 Inactive Checo Conklin MD HEADACHE, TENSION ICD-307.81 Inactive Checo Conklin MD PHARYNGITIS ICD-462 Inactive Checo Conklin MD OTITIS MEDIA-RIGHT ICD-382.9 Ozzy Conklin MD Onychomycosis, toenails ICD-110.1 Inactive Aracelis [...] 2 weeks if needed CITALOPRAM HYDRO BROMIDE 42402119647 Active Radha Sherman FIBER TECHNOLOGIST-C Active PROZAC 10 MG ORAL CAPSULE 1 PO Daily FLUOXETINE HCL 61385943771 No Longer Active Radha Sherman FIBER TECHNOLOGIST-C Active VYVANSE 30 MG ORAL CAPSULE 1 PO daily LISDEXAMF ETAMINE DIMESYLATE 77346990703 Active Radha Sherman FIBER TECHNOLOGIST-C Active XANAX 0.5 MG ORAL TABLET 1 tablet PO BID; PRN A LPRAZOLAM 25405772965 Active Radha Sherman FIBER TECHNOLOGIST-C Active SIMVASTATIN 20 MG ORAL TABLET 1 tablet PO daily SI MVASTATIN 10979306269 Active Radha Sherman FIBER TECHNOLOGIST-C Active IBUPROFEN 800 MG ORAL TABLET 1 tablet PO q8hr PRN IBUPROFEN 27398338082 Active Radhasantos Whitaker APRN-C Active AMBIEN 5 MG ORAL TABLET 1 tablet PO once daily; PRN ZOLPIDEM TARTRATE 97426070595 Active 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 APRN-C Active ALBUTEROL SULFATE HFA 108 (90 BASE) MCG/ACT INHALATION AEROSOL SOLUTION 2 puffs, INH, q4hr PRN ALBUTEROL SULFATE 24825940119 Active Radha Sherman A PRN-C Active AMBIEN 5 MG ORAL TABLET 1 po qHS PRN Insomnia ZOLPIDEM TARTRATE 52652582574 No Longer Active 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 APRN-C Active XANAX 0.5 MG ORAL TABLET 1 po BID PRN anxiety A LPRAZOLAM 92884103411 No Longer Active 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 APRN-C Active PAROXETINE HCL 40 MG ORAL TABLET 1 po qd PAR OXETINE HCL 54746604491 No Longer Active 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 APRN-C Active FOCALIN XR 10 MG ORAL CAPSULE EXTENDED RELEASE 24 HOUR 1 po q a. m. DEXMETHYLPHENIDATE HCL 50109517833 No Longer Active Radha Low FIBER TECHNOLOGIST-C Active SIMVASTATIN 20 MG ORAL TABLET 1 po qd SIMVAS TATIN 69168424610 No Longer Active 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 APRN-C Active FUROSEMIDE 20 MG ORAL TABLET 1 daily for swelling 2018 FUROSEMIDE 72464981275 No Longer Active 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 APRN-C Active KLOR-CON 10 10 MEQ ORAL TABLET EXTENDED RELEASE 1 daily with furosemide POTASSIUM CHLORIDE 04312348327 No Longer Active 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 APRN-C Active HYDROCHLOROTHIAZIDE 12.5 MG ORAL CAPSULE 1 po qd PRN Edema 01/10 HYDROCHLOROTHIAZIDE 25792146413 No Longer Active Paul Hamlin MD Active IBUPROFEN 800 MG ORAL TABLET 1 tab every 8 hours as needed for p ain IBUPROFEN 79491599068 No Longer Active Paul Hamlin MD Active MIRALAX ORAL POWDER 8.5 to 17g po qd PRN Constipation POLYETHYLENE GLYCOL 3350 05549447010 No Longer Active Checo Conklin MD Active PROTONIX 40 MG ORAL TABLET DELAYED RELEASE 1 pill by m out daily, for acid reflux PANTOPRAZOLE SODIUM 04863597588 No Longer Activ e Corry Méndez LPN Active FLAGYL 500 MG ORAL TABLET 1 tablet by mouth bid 08/29 METRONIDAZOLE 70552498448 No Longer Active Corry Méndez LPN Active CLARITHROMYCIN 500 MG ORAL TABLET 1 tab po BID x 14 days CLARITHROMYCIN 92372193212 No Longer Active Corry Méndez LPN Active AMOXICILLIN 500 MG ORAL CAPSULE 2 po BID x 14 days for H. Pylori AMOXICILLIN 85153870363 No Longer Active Corry Méndez LPN Active FLUTICASONE PROPIONATE 50 MCG/ACT NASAL SUSPENSION 2 s prays/nostril qd PRN Congestion/Allergies FLUTICASONE PROPIONATE 0020915319 9 No Longer Active Checo Conklin MD Active AMOXICILLIN 500 MG ORAL CAPSULE 2 po BID x 10 days 201 01/15/27 AMOXICILLIN 14953832673 No Longer Active Checo Conklin MD Activ e CLARITIN 10 MG ORAL TABLET 1 tablet by mouth daily as needed for allergies LORATADINE 55095869645 No Longer Active Checo Ortiz MD Active BACTRIM DS 800-160 MG ORAL TABLET 1 tab by mouth twice daily 201 12/19/26 TRIMETHOPRIM-SULFAMETHOXAZOLE 41552288545 No Longer Active Ragini Carrillo MD Active DIFLUCAN 150 MG ORAL TABLET 1 tablet by mouth qod 2015 FLUCONAZOLE 36535283521 No Longer Active Efren Medel APRN Act mike AZITHROMYCIN 250 MG ORAL TABLET 2 po qd x 1 day, then 1 po q d x 4 days AZITHROMYCIN 05177939628 No Longer Active Efren flores APRN Active FLAGYL 500 MG ORAL TABLET 1 tablet by mouth bid 04/13 METRONIDAZOLE 15164362524 No Longer Active Checo Conklin MD Acti ve MAGNESIUM CITRATE 1.745 GM/30ML ORAL SOLUTION 150ml po BID P RN Constipation MAGNESIUM CITRATE 95721363181 No Longer Active Checo Conklin MD Active BACTROBAN 2 % EXTERNAL CREAM Apply to affected area BID for up to 10 days MUPIROCIN CALCIUM 61745725258 No Longer Active Checo Conklin MD Active HYDROCODONE-ACETAMINOPHEN 5-325 MG ORAL TABLET 1 tab b y mouth every 6 hours as needed HYDROCODONE-ACETAMINOPHEN 57004919995 No Longer Active Checo Conklin MD Active IBUPROFEN 800 MG ORAL TABLET 1 tab every 8 hours with food 03/20 IBUPROFEN 83730779464 No Longer Active Checo Conklin MD Active DIFLUCAN 150 MG ORAL TABLET 1 tablet by mouth if neede d, hold until symptoms start FLUCONAZOLE 60663990953 No Longer Active Checo Conklin MD Active BACTRIM DS 800-160 MG ORAL TABLET 1 tab by mouth twice daily 201 11/23/03 TRIMETHOPRIM-SULFAMETHOXAZOLE 12017646368 No Longer Active K bernice Méndez LPN Active HYDROCODONE-ACETAMINOPHEN 5-325 MG ORAL TABLET 0.5 to 1 tab by mouth every 6 hours as needed HYDROCODONE-ACETAMINOPHEN 77553481854 No Longer Active Checo Conklin MD Active ONDANSETRON 8 MG ORAL TABLET DISINTEGRATING place one tablet on tongue and allow to dissolve every 6 hours as needed for vomitting ONDANSETRON 14816544466 No Longer Active Checo Conklin MD Activ e COMPRO 25 MG RECTAL SUPPOSITORY insert or apply one garza ppository rectally as directed every 12 hours as needed for nausea PROCHLORPERAZINE 90370121519 No Longer Active Checo Conklin MD A ctive SUMATRIPTAN SUCCINATE 100 MG ORAL TABLET Take one PRN for migran e SUMATRIPTAN SUCCINATE 82259256632 No Longer Active Checo Conklin MD Active TRAVEL SICKNESS 25 MG ORAL TABLET CHEWABLE chew and sw allow one tablet every 6 hours as needed MECLIZINE HCL 00836736719 No Longer A ctive Checo Conklin MD Active BUPROPION HCL ER (SR) 100 MG ORAL TABLET EXTENDED RELE ASE 12 HOUR take one tablet by mouth one time daily for one week then take 1 two times daily BUPROPION HCL 67784746865 No Longer Active Checo gallagher MD Active TERBINAFINE HCL 250 MG ORAL TABLET take one table PO one time da moises TERBINAFINE HCL 69788559319 No Longer Active Checo Conklin MD Active METOCLOPRAMIDE HCL 10 MG ORAL TABLET take one PO tid PRN nausea METOCLOPRAMIDE HCL 08308701194 No Longer Active Checo Conklin MD Active DICLOFENAC SODIUM 75 MG ORAL TABLET DELAYED RELEASE 1 tablet by mouth twice daily PRN Knee pain DICLOFENAC SODIUM 03180216672 No Longer Active Checo Conklin MD Active LAMISIL 250 MG ORAL TABLET 1 po qd TERBINAFI NE HCL 69516065298 No Longer Active Checo Conklin MD Active REGLAN 10 MG ORAL TABLET 1 po TID PRN Nausea 3 METOCLOPRAMIDE HCL 87158137721 No Longer Active Checo Conklin MD Active CELEXA 20 MG ORAL TABLET 1 tablet by mouth daily 09/26 CITALOPRAM HYDROBROMIDE 90249083186 No Longer Active Checo Conklin MD Active AZITHROMYCIN 250 MG ORAL TABLET 2 po qd x 1 day, then 1 po q d x 4 days AZITHROMYCIN 84256042289 No Longer Active Checo Ortiz MD Active HYDROCODONE-ACETAMINOPHEN 5-325 MG ORAL TABLET 1 po q 6hr PRN Pa in HYDROCODONE-ACETAMINOPHEN 59815703668 No Longer Active Lenora Conklin MD Active PHENAZOPYRIDINE HCL 200 MG ORAL TABLET take 1 tab po TID for bladder pain PHENAZOPYRIDINE HCL 37652988942 No Longer Active Joe Conklin MD Active CIPRO 500 MG ORAL TABLET 1 tablet by mouth twice daily CIPROFLOXACIN HCL 28872184698 No Longer Active Dangelo Rangel MD Active HYDROCODONE-ACETAMINOPHEN 5-325 MG ORAL TABLET 1/2 to 1 po q 4 hours prn cough HYDROCODONE-ACETAMINOPHEN 34082263308 No Longer Activ e Dangelo Rangel MD Active BACTRIM DS 800-160 MG ORAL TABLET 1 po BID x 7 days 29/04/10 SULFAMETHOXAZOLE-TRIMETHOPRIM 28179868657 No Longer Active Checo Conklin MD Active PREDNISONE 20 MG ORAL TABLET 2 tabs daily for 3 days, 1 tab daily for 3 days, 1/2 tab daily for 2 days PREDNISONE 17579480071 No Longer Active Checo Conklin MD Active TRIAMCINOLONE ACETONIDE 0.1 % EXTERNAL OINTMENT Apply to affected areas TID for up to 2 weeks TRIAMCINOLONE ACETONIDE 77210947357 No Longer Active Checo Conklin MD Active CEFDINIR 300 MG ORAL CAPSULE by mouth twice a day 2013 CEFDINIR 49646754157 No Longer Active Dangelo Rangel MD Acti ve BUPROPION HCL ER (SMOKING DET) 150 MG ORAL TABLET EXTE NDED RELEASE 12 HOUR 1 a day for 1 week then 1 twice a day BUPROPION HCL (SMOKING DETER) 33765457849 No Longer Active Checo Conklin MD Active CHANTIX STARTING MONTH KARTHIK 0.5 MG X 11 & 1 MG X 42 ORA L TABLET 0.5mg daily for 3 days, then 0.5mg BID for 4 days, then 1mg BID VARENICLINE TARTRATE 95387125475 No Longer Active Checo Conklin MD Activ e CONCERTA 18 MG ORAL TABLET EXTENDED RELEASE 1 po q a.m. METHYLPHENIDATE HCL 48818533388 No Longer Active Checo Conklin MD Active TRAZODONE HCL 100 MG ORAL TABLET 0.5 to 1 po qHS PRN Insomnia 20 30/07/08 TRAZODONE HCL 81358309891 No Longer Active Checo Conklin MD Active FIORICET 325-50-40 MG TAB 1 tablet by mouth four times daily as needed [id number] 59608979165 No Longer Active Checo Conklin MD Active PHENERGAN CREAM* 25mg applied to wrist q6hr PRN Nausea PHENERGAN CREAM* No Longer Active Checo Conklin MD A ctive FLONASE 50 MCG/ACT NASAL SUSPENSION 1 spray each nostril am and hs FLUTICASONE PROPIONATE 90227740381 No Longer Active Checo Conklin MD Active ANTIPYRINE-BENZOCAINE 5.4-1.4 % OTIC SOLUTION 1-2 drops in affec yohannes ear BENZOCAINE-ANTIPYRINE 70848497310 No Longer Active Checo Conklin MD Active CEFDINIR 300 MG ORAL CAPSULE 1 po bid CEFDINIR 95530189779 No Longer Active Checo Conklin MD Active PREDNISONE 20 MG ORAL TABLET 2 tabs daily for 3 days, 1 tab daily for 3 days, 1/2 tab daily for 2 days PREDNISONE 39892752363 No Longer Active Checo Conklin MD Active AZITHROMYCIN 250 MG ORAL TABLET 2 po qd x 1 day, then 1 po q d x 4 days AZITHROMYCIN 17958148904 No Longer Active Checo Ortiz MD Active PREDNISONE 20 MG ORAL TABLET 2 tabs daily for 3 days, 1 tab daily for 3 days, 1/2 tab daily for 2 days PREDNISONE 14295588349 No Longer Active Checo Conklin MD Active ZITHROMAX Z-KARTHIK 250 MG ORAL TABLET 2 today, then 1 daily for 4 d ays AZITHROMYCIN 88622582694 No Longer Active Paul Hamlin MD Active FOCALIN XR 10 MG ORAL CAPSULE EXTENDED RELEASE 24 HOUR 1 po q a. m. DEXMETHYLPHENIDATE HCL 84310546098 No Longer Active Paul Hamlin MD Active PERCOCET 10-325 MG ORAL TABLET 1 tablet every 6 hours as needed for pain OXYCODONE-ACETAMINOPHEN 96711933381 No Longer Active Paul Hamlin MD Active LORTAB 5-500 MG ORAL TABLET 1/2 to 1 tablet by mouth e very 4 hours as needed for pain HYDROCODONE-ACETAMINOPHEN 98906125141 No Longer Active Checo Conklin MD Active FOCALIN XR 15 MG ORAL CAPSULE EXTENDED RELEASE 24 HOUR 1 po q a. m. DEXMETHYLPHENIDATE HCL 44850558751 No Longer Active Checo Conklin MD Active ZOFRAN ODT 4 MG ORAL TABLET DISINTEGRATING 1 po q6hr PRN Nausea ONDANSETRON 88255464839 No Longer Active Checo Conklin MD Active PERCOCET 5-325 MG ORAL TABLET 1 tablet by mouth every 6 hour s as needed OXYCODONE-ACETAMINOPHEN 07514118982 No Longer Active Checo Conklin MD Active PYRIDIUM 200 MG ORAL TABLET take 1 tab po TID prn urinary pain. PHENAZOPYRIDINE HCL 82284484280 No Longer Active Checo Joshua Active FLUCONAZOLE 150 MG ORAL TABLET take 1 tab po qday once FLUCONAZOLE 48262672775 No Longer Active Dangelo Rangel MD Acti ve CIPRO 500 MG ORAL TABLET 1 tablet by mouth twice daily CIPROFLOXACIN HCL 55397169328 No Longer Active Dangelo Rangel MD Active PYRIDIUM 200 MG ORAL TABLET take 1 tab po TID prn urinary pain. PYRIDIUM 200 MG ORAL TABLET 2411087 PHENAZOPYRIDINE HCL Inactive PERCOCET 5-325 MG ORAL TABLET 1 tablet by mouth every 6 hour s as needed PERCOCET 5-325 MG ORAL TABLET 4948454 OXYCODONE-ACETAMINOPHEN Inactive ZOFRAN ODT 4 MG ORAL [...] for pain PERCOCET 10-325 MG ORAL TABLET 8031697 OXYCODONE-ACETAMI NOPHEN Inactive FOCALIN XR 10 MG ORAL CAPSULE EXTENDED RELEASE 24 HOUR 1 po q a. m. FOCALIN XR 10 MG ORAL CAPSULE EXTENDED RELEASE 24 HOUR DEXMETHYLPHENIDATE HCL Inactive CEFDINIR 300 MG ORAL CAPSULE 1 po bid CEFDINI R 300 MG ORAL CAPSULE 600565 CEFDINIR Inactive ANTIPYRINE-BENZOCAINE 5.4-1.4 % OTIC SOLUTION [...] 30/07/08 TRAZODONE HCL 100 MG ORAL TABLET 329347 TRAZODONE HCL Inactive CONCERTA 18 MG ORAL [...] cough HYDROCODONE-ACETAMINOPHEN 5-325 MG ORAL TABLET 8 48900 HYDROCODONE-ACETAMINOPHEN Inactive PHENAZOPYRIDINE HCL 200 MG ORAL TABLET take 1 tab po TID for bladder pain PHENAZOPYRIDINE HCL 200 MG ORAL TABLET 8546120 PHENAZOPYRIDINE HCL Inactive HYDROCODONE-ACETAMINOPHEN 5-325 MG ORAL TABLET 1 po q 6hr PRN Pa in HYDROCODONE-ACETAMINOPHEN 5-325 MG ORAL TABLET 348979 HYDROCODONE-ACETAMINOPHEN Inactive CELEXA 20 MG ORAL TABLET 1 tablet by mouth daily 09/26 CELEXA 20 MG ORAL TABLET 609741 CITALOPRAM HYDROBROMIDE Inactive REGLAN 10 MG ORAL TABLET 1 po TID PRN Nausea 3 REGLAN 10 MG ORAL TABLET 748545 METOCLOPRAMIDE HCL Inactive LAMISIL 250 MG ORAL TABLET 1 po qd L AMISIL 250 MG ORAL TABLET 965064 TERBINAFINE HCL Inactive DICLOFENAC SODIUM 75 MG ORAL TABLET DELAYED RELEASE 1 tablet by mouth twice daily PRN Knee pain DICLOFENAC SODIUM 75 MG ORAL TABLET DELAYED RELEASE 324321 DICLOFENAC SODIUM Inactive METOCLOPRAMIDE HCL 10 MG ORAL TABLET take one PO tid PRN nausea METOCLOPRAMIDE HCL 10 MG ORAL TABLET 746717 METOCLOPRAM ZACH HCL Inactive TERBINAFINE HCL 250 MG ORAL TABLET take one table PO one time da moises TERBINAFINE HCL 250 MG ORAL TABLET 731796 TERBINAFINE H CL Inactive BUPROPION HCL ER [...] SICKNESS 25 M G ORAL TABLET CHEWABLE 095289 MECLIZINE HCL Inactive SUMATRIPTAN SUCCINATE 100 MG ORAL TABLET Take one PRN for migran e SUMATRIPTAN SUCCINATE 100 MG ORAL TABLET 559579 SUMATRIPTAN SUCCINATE Inactive COMPRO 25 MG RECTAL SUPPOSITORY insert or apply one garza ppository rectally as directed every 12 hours as needed for nausea COMPRO 25 MG RECTAL SUPPOSITORY 777229 PROCHLORPERAZINE Inactive ONDANSETRON 8 MG ORAL TABLET DISINTEGRATING place one tablet on tongue and allow to dissolve every 6 hours as needed for vomitting ONDANSETRON 8 MG ORAL TABLET DISINTEGRATING 567210 ONDANSETRON Inactive HYDROCODONE-ACETAMINOPHEN 5-325 MG ORAL TABLET 0.5 to 1 tab by mouth every 6 hours as needed HYDROCODONE-ACETAMIN OPHEN 5-325 MG ORAL TABLET 528320 HYDROCODONE-ACETAMINOPHEN Inactive BACTRIM DS 800-160 MG ORAL TABLET 1 tab by mouth twice daily 201 11/23/03 BACTRIM DS 800-160 MG ORAL TABLET 718566 TRIMETHOPRIM-SULFAMETHOXAZOLE Inactive DIFLUCAN 150 MG ORAL TABLET 1 tablet by mouth if neede d, hold until symptoms start DIFLUCAN 150 MG ORAL TABLET 092091 FLUCONAZ OLE Inactive IBUPROFEN 800 MG ORAL TABLET 1 tab every 8 hours with food 03/20 IBUPROFEN 800 MG ORAL TABLET 378571 IBUPROFEN Krupa ctive HYDROCODONE-ACETAMINOPHEN 5-325 MG ORAL TABLET 1 tab b y mouth every 6 hours as needed HYDROCODONE-ACETAMINOPHEN 5-325 MG ORAL TABLET 108069 HYDROCODONE-ACETAMINOPHEN Inactive BACTROBAN 2 % EXTERNAL CREAM Apply to affected area BID for up to 10 days BACTROBAN 2 % EXTERNAL CREAM MUPIROCIN CA LCIUM Inactive MAGNESIUM CITRATE 1.745 GM/30ML ORAL SOLUTION 150ml po BID P RN Constipation MAGNESIUM CITRATE 1.745 GM/30ML ORAL SOLUTION 10 66476 MAGNESIUM CITRATE Inactive DIFLUCAN 150 MG ORAL TABLET 1 tablet by mouth qod 2015 DIFLUCAN 150 MG ORAL TABLET 001281 FLUCONAZOLE Inactive BACTRIM DS 800-160 MG ORAL TABLET 1 tab by mouth twice daily 201 12/19/26 BACTRIM DS 800-160 MG ORAL TABLET 333612 TRIMETHOPRIM-SULFAMETHOXAZOLE Inactive CLARITIN 10 MG ORAL TABLET 1 tablet by mouth daily as needed for allergies CLARITIN 10 MG ORAL TABLET 344817 LORATADINE I nactive FLUTICASONE PROPIONATE 50 MCG/ACT NASAL SUSPENSION 2 s prays/nostril qd PRN Congestion/Allergies FLUTICASONE PROPION ATE 50 MCG/ACT NASAL SUSPENSION 2006930 FLUTICASONE PROPIONATE Inactive MIRALAX ORAL POWDER 8.5 to 17g po qd PRN Constipation MIRALAX ORAL POWDER 875243 POLYETHYLENE GLYCOL 3350 Inactive IBUPROFEN 800 MG ORAL TABLET 1 tab every 8 hours as needed for p ain IBUPROFEN 800 MG ORAL TABLET 642314 IBUPROFEN [place] ctive HYDROCHLOROTHIAZIDE 12.5 MG ORAL CAPSULE 1 po qd PRN Edema 01/10 HYDROCHLOROTHIAZIDE 12.5 MG ORAL CAPSULE 198964 HYDROCH LOROTHIAZIDE Inactive KLOR-CON 10 10 MEQ ORAL TABLET EXTENDED RELEASE 1 daily with furosemide KLOR-CON 10 10 MEQ ORAL TABLET EXTENDED RELEASE POTASSIUM CHLORIDE Inactive FUROSEMIDE 20 MG ORAL TABLET 1 daily for swelling 2018 FUROSEMIDE 20 MG ORAL TABLET 782608 FUROSEMIDE Inactive SIMVASTATIN 20 MG ORAL TABLET 1 po qd SIMVASTATIN 20 MG ORAL TABLET 559458 SIMVASTATIN Inactive FOCALIN XR 10 MG ORAL CAPSULE EXTENDED RELEASE 24 HOUR 1 po q a. m. FOCALIN XR 10 MG ORAL CAPSULE EXTENDED RELEASE 24 HOUR DEXMETHYLPHENIDATE HCL Inactive PAROXETINE HCL 40 MG ORAL TABLET 1 po qd PAROXETINE HCL 40 MG ORAL TABLET 7586279 PAROXETINE HCL Inactive XANAX 0.5 MG ORAL TABLET 1 po BID PRN anxiety XANAX 0.5 MG ORAL TABLET 962762 ALPRAZOLAM Inactive AMBIEN 5 MG ORAL TABLET 1 po qHS PRN Insomnia AMBIEN 5 MG ORAL TABLET 647148 ZOLPIDEM TARTRATE Inactive PROZAC 10 MG ORAL CAPSULE 1 PO Daily NM OZAC 10 MG ORAL CAPSULE 746504 FLUOXETINE HCL Inactive CIPRO 500 MG ORAL TABLET 1 tablet by mouth twice daily CIPRO 500 MG ORAL TABLET 973305 CIPROFLOXACIN HCL Inactive FLUCONAZOLE 150 MG ORAL TABLET take 1 tab po qday once FLUCONAZOLE 150 MG ORAL TABLET 055834 FLUCONAZOLE Inactive ZITHROMAX Z-KARTHIK 250 MG ORAL TABLET 2 today, then 1 daily for 4 d ays ZITHROMAX Z-KARTHIK 250 MG ORAL TABLET 494801 AZITHROMYCIN Inactive PREDNISONE 20 MG ORAL TABLET 2 tabs daily for 3 days, 1 tab daily for 3 days, 1/2 tab daily for 2 days PREDNISONE 20 MG ORAL T ABLET 617712 PREDNISONE Inactive AZITHROMYCIN 250 MG ORAL TABLET 2 po qd x 1 day, then 1 po q d x 4 days AZITHROMYCIN 250 MG ORAL TABLET 360528 AZITHROMY SPARKLE Inactive PREDNISONE 20 MG ORAL TABLET 2 tabs daily for 3 days, 1 tab daily for 3 days, 1/2 tab daily for 2 days PREDNISONE 20 MG ORAL TABLET 148016 PREDNISONE Inactive CEFDINIR 300 MG ORAL CAPSULE by mouth twice a day 2013 CEFDINIR 300 MG ORAL CAPSULE 804886 CEFDINIR Inactive TRIAMCINOLONE ACETONIDE 0.1 % EXTERNAL OINTMENT Apply to affected areas TID for up to 2 weeks TRIAMCINOLONE ACETON ZACH 0.1 % EXTERNAL OINTMENT 5100378 TRIAMCINOLONE ACETONIDE Inactive PREDNISONE 20 MG ORAL TABLET 2 tabs daily for 3 days, 1 tab daily for 3 days, 1/2 tab daily for 2 days PREDNISONE 20 MG ORAL T ABLET 403222 PREDNISONE Inactive BACTRIM DS 800-160 MG ORAL TABLET 1 po BID x 7 days 29/04/10 BACTRIM DS 800-160 MG ORAL TABLET 046532 SULFAMETHOXAZOLE-TRIMETHOP RIM Inactive CIPRO 500 MG ORAL TABLET 1 tablet by mouth twice daily CIPRO 500 MG ORAL TABLET 873746 CIPROFLOXACIN HCL Inactive AZITHROMYCIN 250 MG ORAL TABLET 2 po qd x 1 day, then 1 po q d x 4 days AZITHROMYCIN 250 MG ORAL TABLET 127236 AZITHROMY SPARKLE Inactive FLAGYL 500 MG ORAL TABLET 1 tablet by mouth bid 04/13 FLAGYL 500 MG ORAL TABLET 865859 METRONIDAZOLE Inactive AZITHROMYCIN 250 MG ORAL TABLET 2 po qd x 1 day, then 1 po q d x 4 days AZITHROMYCIN 250 MG ORAL TABLET 280241 AZITHROMY SPARKLE Inactive AMOXICILLIN 500 MG ORAL CAPSULE 2 po BID x 10 days 201 01/15/27 AMOXICILLIN 500 MG ORAL CAPSULE 240544 AMOXICILLIN Inactive AMOXICILLIN 500 MG ORAL CAPSULE 2 po BID x 14 days for H. Pylori AMOXICILLIN 500 MG ORAL CAPSULE 402401 AMOXICILLIN Inactive CLARITHROMYCIN 500 MG ORAL TABLET 1 tab po BID x 14 days CLARITHROMYCIN 500 MG ORAL TABLET 433955 CLARITHROMYCIN Inacti ve FLAGYL 500 MG ORAL TABLET 1 tablet by mouth bid 08/29 FLAGYL 500 MG ORAL TABLET 439156 METRONIDAZOLE Inactive PROTONIX 40 MG ORAL TABLET DELAYED RELEASE 1 pill by m outh daily, for acid reflux PROTONIX 40 MG ORAL TABLET DELAYED RELEAS E 647027 PANTOPRAZOLE SODIUM Inactive Immunizations Vaccine Administration Date Value Standard Michael cription TB-PPD (tuberculin purified protein derivative), intra dermal administration Tubersol Vital Signs Date Name Value Unit Range Description blood pressure, diastolic 74 mm[Hg] BP mathew blood pressure, systolic 112 mm[Hg] BP sys height E&M 63.5 [in_us] Bdy height pulse rate E&M 76 /min Heart rate temperature E&M 98.5 [degF] Body temp erature weight E&M 153 [lb_av] Weight Measure d blood pressure, diastolic, repeated by physician 81 BP mathew blood pressure, diastolic 81 mm[Hg] BP mathew blood pressure, systolic, repeated by physician 124 BP sys blood pressure, systolic 124 mm[Hg] BP sys height E&M 63.5 [in_us] Bdy height pulse rate E&M 73 /min Heart rate temperature E&M 98.6 [degF] Body temp erature weight E&M 157 [lb_av] Weight Measure d Diagnostic Results Date Name Value Unit Range Description Lab Report: CBC, Comp. Metabolic Panel, Lipid Panel - Chemistry sodium, serum 142 mmol/L 268-282 4793/07/22 carbon dioxide, venous blood 26.3 mmol/L 21.0-32 [...] 0.80 mg/dL 0.00-1.00 cholesterol, serum 172 mg/dL [phone]/07/22 triglyceride, serum, fasting 222 mg/dL 30-200 HDL [...] volume <30 mg/g Normal mg/g mg/L 0-29 Lab Report: UADIP W/MICRO, AUTO - Chemis try protein, total urine random Negative mg/dL Negative RBC, urine, dipstick Trace-lysed Negative Lab Report: UADIP W/MICRO, AUTO - Urinal ysis urobilinogen, urine, semiquantitative (dipstick) 0.2 E .U./dL Normal leukocyte esterase, urine, by dipstick Negative Negative nitrite, urine, semiquantitative Negative Neg ative glucose, urine, semiquantitative Negative Neg ative ketones, urine, by test strip Negative Negati ve bilirubin, urine Negative Negative urine color Yellow Colorless;Lightyellow;St raw;Yellow appearance, urine Clear Clear specific gravity, urine 1.015 1.000-1.030 pH, urine, semiquantitative 6.5 5.0-8.5 Encounters Code Encounter Date Provider Facility CPT-90910 Level 3 Est. Patient 09:11:53 CDT [facility] Level [facility] Est[facility] Patient 16:46:51 CDT Thomas reynolds DO [facility] CPT-15549 [id number] Vst-Est Level III 14:40:49 CDT Paul Hamlin MD [facility] CPT-04265 Level 4 Est. Patient 11:08:43 CDT Checo Conklin MD [facility] [id number] Vst-Est Level III 09:37:41 CDT Dangelo Rangel MD [facility] CPT-34354 Level 4 Est. Patient 08:57:51 BILINGUAL RESEARCH INTERVIEWER Checo Conklin MD [facility] CPT-58990 Level 3 Est. Patient 11:24:55 BILINGUAL RESEARCH INTERVIEWER Efren almendarez [facility] CPT-88094 Level 3 Est. Patient 13:05:44 CDT Paul Hamlin MD [facility] CPT-76112 Level 3 Est. Patient 11:29:55 CDT Checo Conklin MD [facility] CPT-19159 Level 4 Est. Patient 11:08:12 BILINGUAL RESEARCH INTERVIEWER Checo Conklin MD [facility] CPT-86977 Level 4 Est. Patient 16:06:48 BILINGUAL RESEARCH INTERVIEWER Checo Conklin MD [facility] CPT-64357 Level 3 Est. Patient 09:11:49 CDT Efren almendarez [facility]-12683 Level 2 Est. Patient 19:53:27 CDT Tanner hill MD [facility] CPT-61643 Level 3 Est. Patient 09:15:34 CDT Efren almendarez [facility] CPT-12755 Level 3 Est. 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 Patient 13:55:46 BILINGUAL RESEARCH INTERVIEWER Checo Conklin MD [facility] CPT-59503 Level 4 Est. Patient 17:10:53 CDT Checo Conklin MD [facility] CPT-20396 Level 3 Est. Patient 15:56:22 CDT Checo Conklin MD [facility] CPT-17773 Level 3 Est. Patient 15:29:07 CDT Checo Conklin MD [facility] CPT-49182 Level 3 Est. Patient 14:38:41 CDT Checo Conklin MD [facility] CPT-68136 Level 3 Est. Patient 15:22:03 BILINGUAL RESEARCH INTERVIEWER Thomas reynolds DO [facility] CPT-70795 Level 3 Est. Patient 13:34:17 BILINGUAL RESEARCH INTERVIEWER Checo Conklin MD [facility] CPT-38778 Level 3 Est. Patient 12:29:32 CDT Dangelo arroyo MD [facility] CPT-93446 Level 3 Est. Patient 16:53:02 CDT Checo Conklin MD [facility] CPT-42916 Level 3 Est. Patient 16:37:13 CDT Checo Conklin MD [facility] CPT-82231 Level 3 Est. Patient 16:16:59 CDT Paul Hamlin MD [facility] CPT-56158 Level 3 Est. Patient 14:20:13 CDT Dangelo arroyo MD [facility] CPT-81264 Level 4 Est. Patient 11:29:33 CDT Checo Conklin MD [facility] CPT-73861 Level 3 Est. Patient 17:08:31 CDT Checo Conklin MD [facility] CPT-91299 Level 3 Est. Patient 16:50:42 BILINGUAL RESEARCH INTERVIEWER Checo Conklin MD [facility] CPT-39630 Level 4 Est. Patient 09:26:08 BILINGUAL RESEARCH INTERVIEWER Checo Conklin MD [facility] CPT-96891 Level 3 Est. Patient 11:37:10 CDT Checo Conklin MD [facility] CPT-96546 Level 4 Est. Patient 14:07:38 CDT Checo Conklin MD [facility] CPT-21439 Level 3 Est. Patient 09:54:41 CDT Checo Conklin MD [facility] CPT-99238 Level 3 Est. Patient 11:10:54 CDT Paul Hamlin MD [facility] CPT-19006 Level 3 Est. Patient 14:16:56 BILINGUAL RESEARCH INTERVIEWER Checo Conklin MD [facility] CPT-30372 Level 3 Est. Patient 11:04:11 BILINGUAL RESEARCH INTERVIEWER Checo Conklin MD [facility] CPT-44979 Level 3 Est. Patient 17:09:26 CDT Dangelo arroyo MD [facility] CPT-34673 Level 3 Est. Patient 16:54:37 CDT Checo Conklin MD [facility] Procedures Code Procedure Name Date Entry Date Standard Desc ription CPT-75519 Abx/Therapy Injection 09:52:15 CDT CPT-04316 Abx/Therapy Injection 18:17:48 CDT CPT-J2550 Phenergan 25 mg (Promethazine) 16:48:23 CDT CPT-J1885 Toradol 60 mg 16:48:23 CDT CPT-63631 Wrist, right, comp 3V - XRAY USE ONLY 09:24:31 CDT CPT-14911 Abd compl w upright - XRAY USE ONLY 1 1:36:54 BILINGUAL RESEARCH INTERVIEWER CPT-32250 UA w micro - LAB USE ONLY 17:06:46 CDT 2015 CPT-96160 [facility] Qual - LAB USE ONLY 17:06:46 CDT 05/06 CPT-63498 CMP - LAB USE ONLY 17:06:46 CDT CPT-10224 CBC with Diff - LAB USE ONLY 17:06:45 CDT 2 CPT-20931 Venipuncture Draw Fee 17:06:45 CDT CPT-LR Lesion Removal 19:53:27 CDT CPT-OV Office Visit 11:31:28 CDT CPT-53742 Tubersol 09:39:29 CDT CPT-J2550 Phenergan 25 mg (Promethazine) 13:59:02 BILINGUAL RESEARCH INTERVIEWER CPT-J1885 Toradol 60 mg (Ketorolac) 13:59:02 BILINGUAL RESEARCH INTERVIEWER 2012
--- OUTSIDE RECORDS SUMMARY | 2019-09-29 01:11 | XMS REPORT | Clinical Summary ---
Author Author Admin, Bethany Gonzales Organization [place] Address Unknown Phone Unavailable Allergies, Adverse Reactions, [...] use disorder Tobacco user 305.1 Active Checo Cnoklin MD Tobacco use disorder Health screening V70.0 [...] Conklin MD Mastodynia Sinusitis 461.9 Resolved Checo Cnoklin MD Acute sinusitis, unspecified Insect bite 919.4 [...] Index 27.0-27.9 Adult Resolved 2018 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 [employer] WORKER-C Body Mass Index 27.0-27.9, adult Body Mass Index 26.0-26.9 Adult Refinement 2017 Thomas Marks DO Body Mass Index 26.0-26.9, adult BMI 25-25.9 Active 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 [employer] WORKER-C Body Mass Index 26.0-26.9, adult Wellness examination, routine medical V70.0 Active 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 [employer] WORKER-C Routine general medical examination at a health care facility Hypertension 401.9 Active 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 [employer] WORKER-C Unspecified essential hypertension Screening for cardiovascular condition [...] Inactive Checo gallagher MD Vertigo ICD-780.4 Inactive Cheoc Conklin MD 2014 Abscess, skin ICD-682.9 Inactive [...] 2 weeks if needed CITALOPRAM HYDRO BROMIDE 46572381000 Active Radha Sherman [employer] WORKER-C Active PROZAC 10 MG ORAL CAPSULE 1 PO Daily FLUOXETINE HCL 83955208311 No Longer Active Radha Sherman [employer] WORKER-C Active VYVANSE 30 MG ORAL CAPSULE 1 PO daily LISDEXAMF ETAMINE DIMESYLATE 44065221808 Active Radha Sherman [employer] WORKER-C Active XANAX 0.5 MG ORAL TABLET 1 tablet PO BID; PRN A LPRAZOLAM 51171957131 Active Radha Sehrman [employer] WORKER-C Active SIMVASTATIN 20 MG ORAL TABLET 1 tablet PO daily SI MVASTATIN 40628316983 Active Radha Sherman [employer] WORKER-C Active IBUPROFEN 800 MG ORAL TABLET 1 tablet PO q8hr PRN IBUPROFEN 09677511296 Active Radhasantos Whitaker APRN-C Active AMBIEN 5 MG ORAL TABLET 1 tablet PO once daily; PRN ZOLPIDEM TARTRATE 98549824655 Active 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 APRN-C Active ALBUTEROL SULFATE HFA 108 (90 BASE) MCG/ACT INHALATION AEROSOL SOLUTION 2 puffs, INH, q4hr PRN ALBUTEROL SULFATE 03808644933 Active Radha Sherman A PRN-C Active AMBIEN 5 MG ORAL TABLET 1 po qHS PRN Insomnia ZOLPIDEM TARTRATE 88387397094 No Longer Active 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 APRN-C Active XANAX 0.5 MG ORAL TABLET 1 po BID PRN anxiety A LPRAZOLAM 98759408224 No Longer Active 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 APRN-C Active PAROXETINE HCL 40 MG ORAL TABLET 1 po qd PAR OXETINE HCL 21901351275 No Longer Active 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 APRN-C Active FOCALIN XR 10 MG ORAL CAPSULE EXTENDED RELEASE 24 HOUR 1 po q a. m. DEXMETHYLPHENIDATE HCL 32438399416 No Longer Active Radha Low [employer] WORKER-C Active SIMVASTATIN 20 MG ORAL TABLET 1 po qd SIMVAS TATIN 63921895777 No Longer Active 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 APRN-C Active FUROSEMIDE 20 MG ORAL TABLET 1 daily for swelling 2018 FUROSEMIDE 83382728021 No Longer Active 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 APRN-C Active KLOR-CON 10 10 MEQ ORAL TABLET EXTENDED RELEASE 1 daily with furosemide POTASSIUM CHLORIDE 42229982257 No Longer Active 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 APRN-C Active HYDROCHLOROTHIAZIDE 12.5 MG ORAL CAPSULE 1 po qd PRN Edema 01/10 HYDROCHLOROTHIAZIDE 30034018728 No Longer Active Paul Hamlin MD Active IBUPROFEN 800 MG ORAL TABLET 1 tab every 8 hours as needed for p ain IBUPROFEN 19614489032 No Longer Active Paul Hamlin MD Active MIRALAX ORAL POWDER 8.5 to 17g po qd PRN Constipation POLYETHYLENE GLYCOL 3350 47354886158 No Longer Active Checo Conklin MD Active PROTONIX 40 MG ORAL TABLET DELAYED RELEASE 1 pill by m out daily, for acid reflux PANTOPRAZOLE SODIUM 38568333868 No Longer Activ e Corry Méndez LPN Active FLAGYL 500 MG ORAL TABLET 1 tablet by mouth bid 08/29 METRONIDAZOLE 05700093469 No Longer Active Corry Méndez LPN Active CLARITHROMYCIN 500 MG ORAL TABLET 1 tab po BID x 14 days CLARITHROMYCIN 04199594795 No Longer Active Corry Méndez LPN Active AMOXICILLIN 500 MG ORAL CAPSULE 2 po BID x 14 days for H. Pylori AMOXICILLIN 57202469648 No Longer Active Corry Méndez LPN Active FLUTICASONE PROPIONATE 50 MCG/ACT NASAL SUSPENSION 2 s prays/nostril qd PRN Congestion/Allergies FLUTICASONE PROPIONATE 8839918078 9 No Longer Active Checo Conklin MD Active AMOXICILLIN 500 MG ORAL CAPSULE 2 po BID x 10 days 201 01/15/27 AMOXICILLIN 02533201481 No Longer Active Checo Conklin MD Activ e CLARITIN 10 MG ORAL TABLET 1 tablet by mouth daily as needed for allergies LORATADINE 99919636298 No Longer Active Checo Ortiz MD Active BACTRIM DS 800-160 MG ORAL TABLET 1 tab by mouth twice daily 201 12/19/26 TRIMETHOPRIM-SULFAMETHOXAZOLE 54444679630 No Longer Active Ragini Carrillo MD Active DIFLUCAN 150 MG ORAL TABLET 1 tablet by mouth qod 2015 FLUCONAZOLE 97462425398 No Longer Active Efren Medel APRN Act mike AZITHROMYCIN 250 MG ORAL TABLET 2 po qd x 1 day, then 1 po q d x 4 days AZITHROMYCIN 95493332306 No Longer Active Efren flores APRN Active FLAGYL 500 MG ORAL TABLET 1 tablet by mouth bid 04/13 METRONIDAZOLE 57184316602 No Longer Active Checo Conklin MD Acti ve MAGNESIUM CITRATE 1.745 GM/30ML ORAL SOLUTION 150ml po BID P RN Constipation MAGNESIUM CITRATE 89922515755 No Longer Active Checo Conklin MD Active BACTROBAN 2 % EXTERNAL CREAM Apply to affected area BID for up to 10 days MUPIROCIN CALCIUM 90414568811 No Longer Active Checo Conklin MD Active HYDROCODONE-ACETAMINOPHEN 5-325 MG ORAL TABLET 1 tab b y mouth every 6 hours as needed HYDROCODONE-ACETAMINOPHEN 24677640593 No Longer Active Checo Conklin MD Active IBUPROFEN 800 MG ORAL TABLET 1 tab every 8 hours with food 03/20 IBUPROFEN 11350478939 No Longer Active Checo Conklin MD Active DIFLUCAN 150 MG ORAL TABLET 1 tablet by mouth if neede d, hold until symptoms start FLUCONAZOLE 09675946657 No Longer Active Checo Conklin MD Active BACTRIM DS 800-160 MG ORAL TABLET 1 tab by mouth twice daily 201 11/23/03 TRIMETHOPRIM-SULFAMETHOXAZOLE 62224465570 No Longer Active K bernice Méndez LPN Active HYDROCODONE-ACETAMINOPHEN 5-325 MG ORAL TABLET 0.5 to 1 tab by mouth every 6 hours as needed HYDROCODONE-ACETAMINOPHEN 45022821714 No Longer Active Checo Conklin MD Active ONDANSETRON 8 MG ORAL TABLET DISINTEGRATING place one tablet on tongue and allow to dissolve every 6 hours as needed for vomitting ONDANSETRON 40475559561 No Longer Active Checo Conklin MD Activ e COMPRO 25 MG RECTAL SUPPOSITORY insert or apply one garza ppository rectally as directed every 12 hours as needed for nausea PROCHLORPERAZINE 58496879085 No Longer Active Checo Conklin MD A ctive SUMATRIPTAN SUCCINATE 100 MG ORAL TABLET Take one PRN for migran e SUMATRIPTAN SUCCINATE 24933769086 No Longer Active Checo Conklin MD Active TRAVEL SICKNESS 25 MG ORAL TABLET CHEWABLE chew and sw allow one tablet every 6 hours as needed MECLIZINE HCL 68187559403 No Longer A ctive Checo Conklin MD Active BUPROPION HCL ER (SR) 100 MG ORAL TABLET EXTENDED RELE ASE 12 HOUR take one tablet by mouth one time daily for one week then take 1 two times daily BUPROPION HCL 46911006818 No Longer Active Checo gallagher MD Active TERBINAFINE HCL 250 MG ORAL TABLET take one table PO one time da moises TERBINAFINE HCL 21380635279 No Longer Active Checo Conklin MD Active METOCLOPRAMIDE HCL 10 MG ORAL TABLET take one PO tid PRN nausea METOCLOPRAMIDE HCL 70822852779 No Longer Active Checo Conklin MD Active DICLOFENAC SODIUM 75 MG ORAL TABLET DELAYED RELEASE 1 tablet by mouth twice daily PRN Knee pain DICLOFENAC SODIUM 93258754806 No Longer Active Checo Conklin MD Active LAMISIL 250 MG ORAL TABLET 1 po qd TERBINAFI NE HCL 81555851832 No Longer Active Checo Conklin MD Active REGLAN 10 MG ORAL TABLET 1 po TID PRN Nausea 3 METOCLOPRAMIDE HCL 34073665291 No Longer Active Checo Conklin MD Active CELEXA 20 MG ORAL TABLET 1 tablet by mouth daily 09/26 CITALOPRAM HYDROBROMIDE 09298988703 No Longer Active Checo Conklin MD Active AZITHROMYCIN 250 MG ORAL TABLET 2 po qd x 1 day, then 1 po q d x 4 days AZITHROMYCIN 15048732106 No Longer Active Checo Ortiz MD Active HYDROCODONE-ACETAMINOPHEN 5-325 MG ORAL TABLET 1 po q 6hr PRN Pa in HYDROCODONE-ACETAMINOPHEN 04715824798 No Longer Active Lenora Conklin MD Active PHENAZOPYRIDINE HCL 200 MG ORAL TABLET take 1 tab po TID for bladder pain PHENAZOPYRIDINE HCL 95418783140 No Longer Active Joe Conklin MD Active CIPRO 500 MG ORAL TABLET 1 tablet by mouth twice daily CIPROFLOXACIN HCL 32927619065 No Longer Active Dangelo Rangel MD Active HYDROCODONE-ACETAMINOPHEN 5-325 MG ORAL TABLET 1/2 to 1 po q 4 hours prn cough HYDROCODONE-ACETAMINOPHEN 65461430397 No Longer Activ e Dangelo Rangel MD Active BACTRIM DS 800-160 MG ORAL TABLET 1 po BID x 7 days 29/04/10 SULFAMETHOXAZOLE-TRIMETHOPRIM 40627918902 No Longer Active Checo Conklin MD Active PREDNISONE 20 MG ORAL TABLET 2 tabs daily for 3 days, 1 tab daily for 3 days, 1/2 tab daily for 2 days PREDNISONE 42590024093 No Longer Active Checo Conklin MD Active TRIAMCINOLONE ACETONIDE 0.1 % EXTERNAL OINTMENT Apply to affected areas TID for up to 2 weeks TRIAMCINOLONE ACETONIDE 81152730715 No Longer Active Checo Conklin MD Active CEFDINIR 300 MG ORAL CAPSULE by mouth twice a day 2013 CEFDINIR 31878825950 No Longer Active Dangelo Rangel MD Acti ve BUPROPION HCL ER (SMOKING DET) 150 MG ORAL TABLET EXTE NDED RELEASE 12 HOUR 1 a day for 1 week then 1 twice a day BUPROPION HCL (SMOKING DETER) 77608160126 No Longer Active Checo Conklin MD Active CHANTIX STARTING MONTH KARTHIK 0.5 MG X 11 & 1 MG X 42 ORA L TABLET 0.5mg daily for 3 days, then 0.5mg BID for 4 days, then 1mg BID VARENICLINE TARTRATE 98977748118 No Longer Active Checo Conklin MD Activ e CONCERTA 18 MG ORAL TABLET EXTENDED RELEASE 1 po q a.m. METHYLPHENIDATE HCL 25097228860 No Longer Active Checo Conklin MD Active TRAZODONE HCL 100 MG ORAL TABLET 0.5 to 1 po qHS PRN Insomnia 20 30/07/08 TRAZODONE HCL 22707510977 No Longer Active Checo Conklin MD Active FIORICET 325-50-40 MG TAB 1 tablet by mouth four times daily as needed [id number] 62993483104 No Longer Active Checo Conklin MD Active PHENERGAN CREAM* 25mg applied to wrist q6hr PRN Nausea PHENERGAN CREAM* No Longer Active Checo Conklin MD A ctive FLONASE 50 MCG/ACT NASAL SUSPENSION 1 spray each nostril am and hs FLUTICASONE PROPIONATE 53705179410 No Longer Active Checo Conklin MD Active ANTIPYRINE-BENZOCAINE 5.4-1.4 % OTIC SOLUTION 1-2 drops in affec yohannes ear BENZOCAINE-ANTIPYRINE 41923085830 No Longer Active Checo Conklin MD Active CEFDINIR 300 MG ORAL CAPSULE 1 po bid CEFDINIR 82500141700 No Longer Active Checo Conklin MD Active PREDNISONE 20 MG ORAL TABLET 2 tabs daily for 3 days, 1 tab daily for 3 days, 1/2 tab daily for 2 days PREDNISONE 42273706911 No Longer Active Checo Conklin MD Active AZITHROMYCIN 250 MG ORAL TABLET 2 po qd x 1 day, then 1 po q d x 4 days AZITHROMYCIN 74181134312 No Longer Active Checo Ortiz MD Active PREDNISONE 20 MG ORAL TABLET 2 tabs daily for 3 days, 1 tab daily for 3 days, 1/2 tab daily for 2 days PREDNISONE 89751968180 No Longer Active Checo Conklin MD Active ZITHROMAX Z-KARTHIK 250 MG ORAL TABLET 2 today, then 1 daily for 4 d ays AZITHROMYCIN 07206681591 No Longer Active Paul Hamlin MD Active FOCALIN XR 10 MG ORAL CAPSULE EXTENDED RELEASE 24 HOUR 1 po q a. m. DEXMETHYLPHENIDATE HCL 30286922443 No Longer Active Paul Hamlin MD Active PERCOCET 10-325 MG ORAL TABLET 1 tablet every 6 hours as needed for pain OXYCODONE-ACETAMINOPHEN 16274086119 No Longer Active Paul Hamlin MD Active LORTAB 5-500 MG ORAL TABLET 1/2 to 1 tablet by mouth e very 4 hours as needed for pain HYDROCODONE-ACETAMINOPHEN 80714957893 No Longer Active Checo Conklin MD Active FOCALIN XR 15 MG ORAL CAPSULE EXTENDED RELEASE 24 HOUR 1 po q a. m. DEXMETHYLPHENIDATE HCL 54994771383 No Longer Active Checo Conklin MD Active ZOFRAN ODT 4 MG ORAL TABLET DISINTEGRATING 1 po q6hr PRN Nausea ONDANSETRON 39143323670 No Longer Active Checo Conklin MD Active PERCOCET 5-325 MG ORAL TABLET 1 tablet by mouth every 6 hour s as needed OXYCODONE-ACETAMINOPHEN 54672222221 No Longer Active Checo Conklin MD Active PYRIDIUM 200 MG ORAL TABLET take 1 tab po TID prn urinary pain. PHENAZOPYRIDINE HCL 74232525210 No Longer Active Checo Joshua Active FLUCONAZOLE 150 MG ORAL TABLET take 1 tab po qday once FLUCONAZOLE 53765340919 No Longer Active Dangelo Rangel MD Acti ve CIPRO 500 MG ORAL TABLET 1 tablet by mouth twice daily CIPROFLOXACIN HCL 34532859506 No Longer Active Dangelo Rangel MD Active PYRIDIUM 200 MG ORAL TABLET take 1 tab po TID prn urinary pain. PYRIDIUM 200 MG ORAL TABLET 6079167 PHENAZOPYRIDINE HCL Inactive PERCOCET 5-325 MG ORAL TABLET 1 tablet by mouth every 6 hour s as needed PERCOCET 5-325 MG ORAL TABLET 3955713 OXYCODONE-ACETAMINOPHEN Inactive ZOFRAN ODT 4 MG ORAL [...] for pain PERCOCET 10-325 MG ORAL TABLET 1292474 OXYCODONE-ACETAMI NOPHEN Inactive FOCALIN XR 10 MG ORAL CAPSULE EXTENDED RELEASE 24 HOUR 1 po q a. m. FOCALIN XR 10 MG ORAL CAPSULE EXTENDED RELEASE 24 HOUR DEXMETHYLPHENIDATE HCL Inactive CEFDINIR 300 MG ORAL CAPSULE 1 po bid CEFDINI R 300 MG ORAL CAPSULE 049163 CEFDINIR Inactive ANTIPYRINE-BENZOCAINE 5.4-1.4 % OTIC SOLUTION [...] 30/07/08 TRAZODONE HCL 100 MG ORAL TABLET 698958 TRAZODONE HCL Inactive CONCERTA 18 MG ORAL [...] cough HYDROCODONE-ACETAMINOPHEN 5-325 MG ORAL TABLET 8 08233 HYDROCODONE-ACETAMINOPHEN Inactive PHENAZOPYRIDINE HCL 200 MG ORAL TABLET take 1 tab po TID for bladder pain PHENAZOPYRIDINE HCL 200 MG ORAL TABLET 7730844 PHENAZOPYRIDINE HCL Inactive HYDROCODONE-ACETAMINOPHEN 5-325 MG ORAL TABLET 1 po q 6hr PRN Pa in HYDROCODONE-ACETAMINOPHEN 5-325 MG ORAL TABLET 708674 HYDROCODONE-ACETAMINOPHEN Inactive CELEXA 20 MG ORAL TABLET 1 tablet by mouth daily 09/26 CELEXA 20 MG ORAL TABLET 541761 CITALOPRAM HYDROBROMIDE Inactive REGLAN 10 MG ORAL TABLET 1 po TID PRN Nausea 3 REGLAN 10 MG ORAL TABLET 863764 METOCLOPRAMIDE HCL Inactive LAMISIL 250 MG ORAL TABLET 1 po qd L AMISIL 250 MG ORAL TABLET 172806 TERBINAFINE HCL Inactive DICLOFENAC SODIUM 75 MG ORAL TABLET DELAYED RELEASE 1 tablet by mouth twice daily PRN Knee pain DICLOFENAC SODIUM 75 MG ORAL TABLET DELAYED RELEASE 326099 DICLOFENAC SODIUM Inactive METOCLOPRAMIDE HCL 10 MG ORAL TABLET take one PO tid PRN nausea METOCLOPRAMIDE HCL 10 MG ORAL TABLET 626388 METOCLOPRAM ZACH HCL Inactive TERBINAFINE HCL 250 MG ORAL TABLET take one table PO one time da moises TERBINAFINE HCL 250 MG ORAL TABLET 853644 TERBINAFINE H CL Inactive BUPROPION HCL ER [...] SICKNESS 25 M G ORAL TABLET CHEWABLE 700707 MECLIZINE HCL Inactive SUMATRIPTAN SUCCINATE 100 MG ORAL TABLET Take one PRN for migran e SUMATRIPTAN SUCCINATE 100 MG ORAL TABLET 279059 SUMATRIPTAN SUCCINATE Inactive COMPRO 25 MG RECTAL SUPPOSITORY insert or apply one garza ppository rectally as directed every 12 hours as needed for nausea COMPRO 25 MG RECTAL SUPPOSITORY 795930 PROCHLORPERAZINE Inactive ONDANSETRON 8 MG ORAL TABLET DISINTEGRATING place one tablet on tongue and allow to dissolve every 6 hours as needed for vomitting ONDANSETRON 8 MG ORAL TABLET DISINTEGRATING 873814 ONDANSETRON Inactive HYDROCODONE-ACETAMINOPHEN 5-325 MG ORAL TABLET 0.5 to 1 tab by mouth every 6 hours as needed HYDROCODONE-ACETAMIN OPHEN 5-325 MG ORAL TABLET 610702 HYDROCODONE-ACETAMINOPHEN Inactive BACTRIM DS 800-160 MG ORAL TABLET 1 tab by mouth twice daily 201 11/23/03 BACTRIM DS 800-160 MG ORAL TABLET 507691 TRIMETHOPRIM-SULFAMETHOXAZOLE Inactive DIFLUCAN 150 MG ORAL TABLET 1 tablet by mouth if neede d, hold until symptoms start DIFLUCAN 150 MG ORAL TABLET 166605 FLUCONAZ OLE Inactive IBUPROFEN 800 MG ORAL TABLET 1 tab every 8 hours with food 03/20 IBUPROFEN 800 MG ORAL TABLET 774146 IBUPROFEN [place] ctive HYDROCODONE-ACETAMINOPHEN 5-325 MG ORAL TABLET 1 tab b y mouth every 6 hours as needed HYDROCODONE-ACETAMINOPHEN 5-325 MG ORAL TABLET 129831 HYDROCODONE-ACETAMINOPHEN Inactive BACTROBAN 2 % EXTERNAL CREAM Apply to affected area BID for up to 10 days BACTROBAN 2 % EXTERNAL CREAM MUPIROCIN CA LCIUM Inactive MAGNESIUM CITRATE 1.745 GM/30ML ORAL SOLUTION 150ml po BID P RN Constipation MAGNESIUM CITRATE 1.745 GM/30ML ORAL SOLUTION 10 29342 MAGNESIUM CITRATE Inactive DIFLUCAN 150 MG ORAL TABLET 1 tablet by mouth qod 2015 DIFLUCAN 150 MG ORAL TABLET 267663 FLUCONAZOLE Inactive BACTRIM DS 800-160 MG ORAL TABLET 1 tab by mouth twice daily 201 12/19/26 BACTRIM DS 800-160 MG ORAL TABLET 507338 TRIMETHOPRIM-SULFAMETHOXAZOLE Inactive CLARITIN 10 MG ORAL TABLET 1 tablet by mouth daily as needed for allergies CLARITIN 10 MG ORAL TABLET 001612 LORATADINE I nactive FLUTICASONE PROPIONATE 50 MCG/ACT NASAL SUSPENSION 2 s prays/nostril qd PRN Congestion/Allergies FLUTICASONE PROPION ATE 50 MCG/ACT NASAL SUSPENSION 9511800 FLUTICASONE PROPIONATE Inactive MIRALAX ORAL POWDER 8.5 to 17g po qd PRN Constipation MIRALAX ORAL POWDER 508030 POLYETHYLENE GLYCOL 3350 Inactive IBUPROFEN 800 MG ORAL TABLET 1 tab every 8 hours as needed for p ain IBUPROFEN 800 MG ORAL TABLET 534741 IBUPROFEN [place] ctive HYDROCHLOROTHIAZIDE 12.5 MG ORAL CAPSULE 1 po qd PRN Edema 01/10 HYDROCHLOROTHIAZIDE 12.5 MG ORAL CAPSULE 186356 HYDROCH LOROTHIAZIDE Inactive KLOR-CON 10 10 MEQ ORAL TABLET EXTENDED RELEASE 1 daily with furosemide KLOR-CON 10 10 MEQ ORAL TABLET EXTENDED RELEASE POTASSIUM CHLORIDE Inactive FUROSEMIDE 20 MG ORAL TABLET 1 daily for swelling 2018 FUROSEMIDE 20 MG ORAL TABLET 440302 FUROSEMIDE Inactive SIMVASTATIN 20 MG ORAL TABLET 1 po qd SIMVASTATIN 20 MG ORAL TABLET 557940 SIMVASTATIN Inactive FOCALIN XR 10 MG ORAL CAPSULE EXTENDED RELEASE 24 HOUR 1 po q a. m. FOCALIN XR 10 MG ORAL CAPSULE EXTENDED RELEASE 24 HOUR DEXMETHYLPHENIDATE HCL Inactive PAROXETINE HCL 40 MG ORAL TABLET 1 po qd PAROXETINE HCL 40 MG ORAL TABLET 5805721 PAROXETINE HCL Inactive XANAX 0.5 MG ORAL TABLET 1 po BID PRN anxiety XANAX 0.5 MG ORAL TABLET 730186 ALPRAZOLAM Inactive AMBIEN 5 MG ORAL TABLET 1 po qHS PRN Insomnia AMBIEN 5 MG ORAL TABLET 488531 ZOLPIDEM TARTRATE Inactive PROZAC 10 MG ORAL CAPSULE 1 PO Daily DE OZAC 10 MG ORAL CAPSULE 763977 FLUOXETINE HCL Inactive CIPRO 500 MG ORAL TABLET 1 tablet by mouth twice daily CIPRO 500 MG ORAL TABLET 502548 CIPROFLOXACIN HCL Inactive FLUCONAZOLE 150 MG ORAL TABLET take 1 tab po qday once FLUCONAZOLE 150 MG ORAL TABLET 839049 FLUCONAZOLE Inactive ZITHROMAX Z-KARTHIK 250 MG ORAL TABLET 2 today, then 1 daily for 4 d ays ZITHROMAX Z-KARTHIK 250 MG ORAL TABLET 912089 AZITHROMYCIN Inactive PREDNISONE 20 MG ORAL TABLET 2 tabs daily for 3 days, 1 tab daily for 3 days, 1/2 tab daily for 2 days PREDNISONE 20 MG ORAL T ABLET 206028 PREDNISONE Inactive AZITHROMYCIN 250 MG ORAL TABLET 2 po qd x 1 day, then 1 po q d x 4 days AZITHROMYCIN 250 MG ORAL TABLET 353493 AZITHROMY SPARKLE Inactive PREDNISONE 20 MG ORAL TABLET 2 tabs daily for 3 days, 1 tab daily for 3 days, 1/2 tab daily for 2 days PREDNISONE 20 MG ORAL TABLET 754044 PREDNISONE Inactive CEFDINIR 300 MG ORAL CAPSULE by mouth twice a day 2013 CEFDINIR 300 MG ORAL CAPSULE 431056 CEFDINIR Inactive TRIAMCINOLONE ACETONIDE 0.1 % EXTERNAL OINTMENT Apply to affected areas TID for up to 2 weeks TRIAMCINOLONE ACETON ZACH 0.1 % EXTERNAL OINTMENT 8477956 TRIAMCINOLONE ACETONIDE Inactive PREDNISONE 20 MG ORAL TABLET 2 tabs daily for 3 days, 1 tab daily for 3 days, 1/2 tab daily for 2 days PREDNISONE 20 MG ORAL T ABLET 371823 PREDNISONE Inactive BACTRIM DS 800-160 MG ORAL TABLET 1 po BID x 7 days 29/04/10 BACTRIM DS 800-160 MG ORAL TABLET 787382 SULFAMETHOXAZOLE-TRIMETHOP RIM Inactive CIPRO 500 MG ORAL TABLET 1 tablet by mouth twice daily CIPRO 500 MG ORAL TABLET 481816 CIPROFLOXACIN HCL Inactive AZITHROMYCIN 250 MG ORAL TABLET 2 po qd x 1 day, then 1 po q d x 4 days AZITHROMYCIN 250 MG ORAL TABLET 328770 AZITHROMY SPARKLE Inactive FLAGYL 500 MG ORAL TABLET 1 tablet by mouth bid 04/13 FLAGYL 500 MG ORAL TABLET 375034 METRONIDAZOLE Inactive AZITHROMYCIN 250 MG ORAL TABLET 2 po qd x 1 day, then 1 po q d x 4 days AZITHROMYCIN 250 MG ORAL TABLET 501239 AZITHROMY SPARKLE Inactive AMOXICILLIN 500 MG ORAL CAPSULE 2 po BID x 10 days 201 01/15/27 AMOXICILLIN 500 MG ORAL CAPSULE 194136 AMOXICILLIN Inactive AMOXICILLIN 500 MG ORAL CAPSULE 2 po BID x 14 days for H. Pylori AMOXICILLIN 500 MG ORAL CAPSULE 536802 AMOXICILLIN Inactive CLARITHROMYCIN 500 MG ORAL TABLET 1 tab po BID x 14 days CLARITHROMYCIN 500 MG ORAL TABLET 330005 CLARITHROMYCIN Inacti ve FLAGYL 500 MG ORAL TABLET 1 tablet by mouth bid 08/29 FLAGYL 500 MG ORAL TABLET 303412 METRONIDAZOLE Inactive PROTONIX 40 MG ORAL TABLET DELAYED RELEASE 1 pill by m outh daily, for acid reflux PROTONIX 40 MG ORAL TABLET DELAYED RELEAS E 343135 PANTOPRAZOLE SODIUM Inactive Immunizations Vaccine Administration Date [...] Panel - Chemistry sodium, serum 142 mmol/L 875-786 8152/07/22 carbon dioxide, venous blood 26.3 mmol/L 21.0-32 [...] 0.80 mg/dL 0.00-1.00 cholesterol, serum 172 mg/dL 719-455 5888/07/22 triglyceride, serum, fasting 222 mg/dL 30-200 HDL [...] 5.0-8.5 Encounters Code Encounter Date Provider Facility CPT-91190 Level 3 Est. Patient 09:11:53 CD[facility] Est[facility] Patient 16:46:51 CDT Thomas reynolds DO [facility] CPT-37622 [id number] Vst-Est Level III 14:40:49 CDT Paul Hamlin MD [facility] CPT-21017 Level 4 Est. Patient 11:08:43 CDT Checo Conklin MD [facility]-39289 [id number] Vst-Est Level III 09:37:41 CDT Dangelo Rangel MD [facility] CPT-53474 Level 4 Est. Patient 08:57:51 [employer] Checo Conklin MD [facility] CPT-60280 Level 3 Est. Patient 11:24:55 [employer] TE[employer]ER Efren almendarez [facility] [facility] [place] CPT-85197 Level 3 Est. Patient 13:05:44 CDT Paul Hamlin MD [facility] CPT-22544 Level 3 Est. Patient 11:29:55 CDT Checo Conklin MD [facility] CPT-97232 Level 4 Est. Patient 11:08:12 [employer] Checo Conklin MD [facility] CPT-20461 Level 4 Est. Patient 16:06:48 [employer]ANT [employer] TE[employer]ER Checo Conklin MD [facility] CPT-01551 Level 3 Est. Patient 09:11:49 CDT Efren almendarez [facility]-59094 Level 2 Est. Patient 19:53:27 CDT Tanner hill MD [facility] CPT-41979 Level 3 Est. Patient 09:15:34 CDT Efren almendarez [facility] [place] [facility] [place] CPT-09368 Level 3 Est. Patient 11:28:51 [employer]ER Efren almendarez [facility] [place] [facility] [place] CPT-49484 Level 4 Est. Patient 13:55:46 PLANT PHY[employer] TE[employer]ER Checo Conklin MD [facility] CPT-68642 Level 4 Est. Patient 17:10:53 CDT Checo Conklin MD [facility] CPT-81879 Level 3 Est. Patient 15:56:22 CDT Checo Conklin MD [facility] CPT-20418 Level 3 Est. Patient 15:29:07 CDT Checo Conklin MD [facility] CPT-18962 Level 3 Est. Patient 14:38:41 CDT Checo Conklin MD [facility] CPT-60796 Level 3 Est. Patient 15:22:03 PLANT [employer]ER Thomas reynolds DO [facility] CPT-20490 Level 3 Est. Patient 13:34:17 PLANT [employer]ER Checo Conklin MD [facility] CPT-65812 Level 3 Est. Patient 12:29:32 CDT Dangelo arroyo MD [facility] CPT-25980 Level 3 Est. Patient 16:53:02 CDT Checo Conklin MD [facility] CPT-93779 Level 3 Est. Patient 16:37:13 CDT Checo Conklin MD [facility] CPT-59349 Level 3 Est. Patient 16:16:59 CDT Paul Hamlin MD [facility] CPT-44935 Level 3 Est. Patient 14:20:13 CDT Dangelo arroyo MD [facility] CPT-61388 Level 4 Est. Patient 11:29:33 CDT Checo Conklin MD [facility] CPT-79328 Level 3 Est. Patient 17:08:31 CDT Checo Conklin MD [facility] CPT-11626 Level 3 Est. Patient 16:50:42 [employer] Checo Conklin MD [facility] CPT-72133 Level 4 Est. Patient 09:26:08 [employer] Checo Conklin MD [facility] CPT-87837 Level 3 Est. Patient 11:37:10 CDT Checo Conklin MD [facility] CPT-60155 Level 4 Est. Patient 14:07:38 CDT Checo Conklin MD [facility] CPT-80060 Level 3 Est. Patient 09:54:41 CDT Checo Conklin MD [facility] CPT-24007 Level 3 Est. Patient 11:10:54 CDT [facility] [place] CPT-33426 Level 3 Est. Patient 14:16:56 [employer] Checo Conklin MD [facility] [place] CPT-72843 Level 3 Est. Patient 11:04:11 [employer] Checo Conklin MD [facility] [place] CPT-16024 Level 3 Est. Patient 17:09:26 CDT Dangelo arroyo MD [facility] [place] CPT-55172 Level 3 Est. Patient 16:54:37 CDT Checo Conklin MD [facility] [place] Procedures Code Procedure Name Date Entry Date Standard Desc ription CPT-13160 Abx/Therapy Injection 09:52:15 CDT CPT-72434 Abx/Therapy Injection 18:17:48 CDT CPT-J2550 Phenergan 25 mg (Promethazine) 16:48:23 CDT CPT-J1885 Toradol 60 mg 16:48:23 CDT CPT-75314 Wrist, right, comp 3V - XRAY USE ONLY 09:24:31 CDT CPT-65319 Abd compl w upright - XRAY USE ONLY 1 1:36:54 [employer] CPT-09603 UA w micro - LAB USE ONLY 17:06:46 CDT 2015 CPT-61568 [facility] Qual - LAB USE ONLY 17:06:46 CDT 05/06 CPT-53459 CMP - LAB USE ONLY 17:06:46 CDT CPT-73107 CBC with Diff - LAB USE ONLY 17:06:45 CDT 2 CPT-37469 Venipuncture Draw Fee 17:06:45 CDT CPT-LR Lesion Removal 19:53:27 CDT CPT-OV Office Visit 11:31:28 CDT CPT-21923 Tubersol 09:39:29 CDT CPT-J2550 Phenergan 25 mg (Promethazine) 13:59:02 [employer] CPT-J1885 Toradol 60 mg (Ketorolac) 13:59:02 [employer] 2012
--- OUTSIDE RECORDS SUMMARY | 2019-09-29 01:12 | XMS REPORT | Clinical Summary ---
Author Author Admin, Bethany Ayala [employer] Address Unknown Phone Unavailable Allergies, Adverse Reactions, [...] Conklin MD Acute pharyngitis Cough 786.2 Resolved Chceo Conklin MD Cough Pedal edema 782.3 Resolved [...] Body Mass Index 27.0-27.9 Adult Resolved 2018 Radhasantos Whitaker [employer]ICIAN-C Body Mass Index 27.0-27.9, adult Body Mass Index 26.0-26.9 Adult Refinement 2017 Thomas Marks DO Body Mass Index 26.0-26.9, adult BMI 25-25.9 Active 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 [employer] ELECT[employer]ICIAN-C Body Mass Index 26.0-26.9, adult Wellness examination, routine medical V70.0 Active 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 [employer]AGE ELECTRICIAN-C Routine general medical examination at a health care facility Hypertension 401.9 Active 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 [employer] ELECTRICIAN-C Unspecified essential hypertension Screening for cardiovascular condition V81.2 Active 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 [employer] E[employer]ICIAN-C Screening for other and unspecified card iovascular conditions DIABETES ICD-V18.0 Inactive Checo Conklin MD 201 08/27/26 CONCUSSION ICD-850.9 Inactive Checo Joshua FH BREAST CANCER ICD-V16.3 Inactive Checo Joshua UTI ICD-599.0 Inactive Checo Conklin MD 2013 ABDOMINAL PAIN RIGHT LOWER QUADRANT ICD-789.03 Inactive Checo Conklin MD HEADACHE, TENSION ICD-307.81 Inactive Checo Conklin MD PHARYNGITIS ICD-462 Inactive Checo Conklin MD OTITIS MEDIA-RIGHT ICD-382.9 Inactive Checo Conklin MD Insomnia ICD-780.52 Inactive Checo Joshua Onychomycosis, toenails ICD-110.1 Inactive Aracelis Conklin MD Breast mass, right ICD-611.72 Inactive Checo Conklin MD Hypoglycemia, unspecified ICD-251.2 Inactive Checo Conklin MD Sinusitis ICD-461.9 Inactive Checo Conklin MD Insect bite ICD-919.4 Inactive Checo Conklin MD Carbuncle/furuncle NOS ICD-680.9 Inactive Hilaria Conklin MD Mastalgia ICD-611.71 Inactive Checo Joshua Knee pain, right ICD-719.46 Inactive Checo gallagher MD Vertigo ICD-780.4 Inactive Checo Conklin MD 2014 Abscess, skin ICD-682.9 Inactive Checo richey MD BRONCHITIS, ACUTE ICD-466.0 Inactive Checo gallagher MD Abdominal pain ICD-789.00 Ozzy ngo MD Cough ICD-786.2 Inactive Checo Conklin MD 2016 Pedal edema ICD-782.3 Inactive Checo Conklin MD 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 Ozzy Conklin MD Abdominal pain, generalized ICD-789.07 Inactive Checo Conklin MD Urinary frequency ICD-788.41 Inactive Checo Conklin MD Bacterial vaginosis ICD-616.10 Inactive Lenora Conklin MD Pharyngitis ICD-462 Inactive Checo Conklin MD Sinusitis, acute ICD-461.9 Inactive Checo Ortiz MD Nausea ICD-787.02 Inactive Checo Conklin MD 201 02/15/12 Abdominal pain, generalized ICD-789.07 Inactive Checo Conklin MD Repeated falls ICD-781.99 Inactive Checo ngo MD Body Mass Index 25.0-25.9 Adult Inac miriam Hamlin MD Body Mass Index 27.0-27.9 Adult Jeremias Marks MA Medication List Medication Instructions Start Date Stop Date Generic Name NDC Status Provider Patient Instruction CELEXA 10 MG ORAL TABLET 1 tab PO daily for anxiety/d epression may increase to 2 tabs daily in 2 weeks if needed CITALOPRAM HYDRO BROMIDE 79711580186 Active Radha Sherman [employer]C Active PROZAC 10 MG ORAL CAPSULE 1 PO Daily FLUOXETINE HCL 73779792693 No Longer Active Radha Sherman [employer]AGE ELECT[employer]ICIAN-C Active VYVANSE 30 MG ORAL CAPSULE 1 PO daily LISDEXAMF ETAMINE DIMESYLATE 83382281037 Active Radha Sherman [employer]AGE ELECT[employer]ICIAN-C Active XANAX 0.5 MG ORAL TABLET 1 tablet PO BID; PRN A LPRAZOLAM 63991466248 Active Radha Sherman [employer]AGE ELECT[employer]ICIAN-C Active SIMVASTATIN 20 MG ORAL TABLET 1 tablet PO daily SI MVASTATIN 84836647437 Active Radha Sherman [employer]AGE ELECT[employer]ICIAN-C Active IBUPROFEN 800 MG ORAL TABLET 1 tablet PO q8hr PRN IBUPROFEN 87270848008 Active 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 APRN-C Active AMBIEN 5 MG ORAL TABLET 1 tablet PO once daily; PRN ZOLPIDEM TARTRATE 70503123745 Active 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 APRN-C Active ALBUTEROL SULFATE HFA 108 (90 BASE) MCG/ACT INHALATION AEROSOL SOLUTION 2 puffs, INH, q4hr PRN ALBUTEROL SULFATE 51014981325 Active 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 A PRN-C Active AMBIEN 5 MG ORAL TABLET 1 po qHS PRN Insomnia ZOLPIDEM TARTRATE 38282154566 No Longer Active 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 APRN-C Active XANAX 0.5 MG ORAL TABLET 1 po BID PRN anxiety A LPRAZOLAM 95656063594 No Longer Active 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 APRN-C Active PAROXETINE HCL 40 MG ORAL TABLET 1 po qd PAR OXETINE HCL 97783073831 No Longer Active 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 APRN-C Active FOCALIN XR 10 MG ORAL CAPSULE EXTENDED RELEASE 24 HOUR 1 po q a. m. DEXMETHYLPHENIDATE HCL 77903113387 No Longer Active Radha Low [employer]AGE ELECT[employer]ICIAN-C Active SIMVASTATIN 20 MG ORAL TABLET 1 po qd SIMVAS TATIN 25482029480 No Longer Active 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 APRN-C Active FUROSEMIDE 20 MG ORAL TABLET 1 daily for swelling 2018 FUROSEMIDE 63064201999 No Longer Active 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 APRN-C Active KLOR-CON 10 10 MEQ ORAL TABLET EXTENDED RELEASE 1 daily with furosemide POTASSIUM CHLORIDE 09702090913 No Longer Active Radha Whitkaer APRN-C Active HYDROCHLOROTHIAZIDE 12.5 MG ORAL CAPSULE 1 po qd PRN Edema 01/10 HYDROCHLOROTHIAZIDE 00171477051 No Longer Active Paul Hamlin MD Active IBUPROFEN 800 MG ORAL TABLET 1 tab every 8 hours as needed for p ain IBUPROFEN 21536842850 No Longer Active Paul Hamlin MD Active MIRALAX ORAL POWDER 8.5 to 17g po qd PRN Constipation POLYETHYLENE GLYCOL 3350 79406277847 No Longer Active Checo Conklin MD Active PROTONIX 40 MG ORAL TABLET DELAYED RELEASE 1 pill by m kaycee daily, for acid reflux PANTOPRAZOLE SODIUM 11793133961 No Longer Activ e Corry Méndez LPN Active FLAGYL 500 MG ORAL TABLET 1 tablet by mouth bid 08/29 METRONIDAZOLE 75480183234 No Longer Active Corry Méndez LPN Active CLARITHROMYCIN 500 MG ORAL TABLET 1 tab po BID x 14 days CLARITHROMYCIN 81069308789 No Longer Active Corry Méndez LPN Active AMOXICILLIN 500 MG ORAL CAPSULE 2 po BID x 14 days for H. Pylori AMOXICILLIN 59244376969 No Longer Active Corry Méndez LPN Active FLUTICASONE PROPIONATE 50 MCG/ACT NASAL SUSPENSION 2 s prays/nostril qd PRN Congestion/Allergies FLUTICASONE PROPIONATE 4888436760 9 No Longer Active Checo Conklin MD Active AMOXICILLIN 500 MG ORAL CAPSULE 2 po BID x 10 days 201 01/15/27 AMOXICILLIN 85509003996 No Longer Active Checo Conklin MD Activ e CLARITIN 10 MG ORAL TABLET 1 tablet by mouth daily as needed for allergies LORATADINE 64748952143 No Longer Active Checo Ortiz MD Active BACTRIM DS 800-160 MG ORAL TABLET 1 tab by mouth twice daily 201 12/19/26 TRIMETHOPRIM-SULFAMETHOXAZOLE 96446043068 No Longer Active Ragini Carrillo MD Active DIFLUCAN 150 MG ORAL TABLET 1 tablet by mouth qod 2015 FLUCONAZOLE 50672586029 No Longer Active Efren Medel APRN Act mike AZITHROMYCIN 250 MG ORAL TABLET 2 po qd x 1 day, then 1 po q d x 4 days AZITHROMYCIN 08101203227 No Longer Active Efren flores APRN Active FLAGYL 500 MG ORAL TABLET 1 tablet by mouth bid 04/13 METRONIDAZOLE 65185961550 No Longer Active Checo Conklin MD Acti ve MAGNESIUM CITRATE 1.745 GM/30ML ORAL SOLUTION 150ml po BID P RN Constipation MAGNESIUM CITRATE 50895629394 No Longer Active Checo Conklin MD Active BACTROBAN 2 % EXTERNAL CREAM Apply to affected area BID for up to 10 days MUPIROCIN CALCIUM 25022282005 No Longer Active Checo Conklin MD Active HYDROCODONE-ACETAMINOPHEN 5-325 MG ORAL TABLET 1 tab b y mouth every 6 hours as needed HYDROCODONE-ACETAMINOPHEN 67723527660 No Longer Active Checo Conklin MD Active IBUPROFEN 800 MG ORAL TABLET 1 tab every 8 hours with food 03/20 IBUPROFEN 02965490838 No Longer Active Checo Conklin MD Active DIFLUCAN 150 MG ORAL TABLET 1 tablet by mouth if neede d, hold until symptoms start FLUCONAZOLE 84817521346 No Longer Active Checo Conklin MD Active BACTRIM DS 800-160 MG ORAL TABLET 1 tab by mouth twice daily 201 11/23/03 TRIMETHOPRIM-SULFAMETHOXAZOLE 00713615354 No Longer Active K bernice Méndez, MANAGER EMERGENCY Active HYDROCODONE-ACETAMINOPHEN 5-325 MG ORAL TABLET 0.5 to 1 tab by mouth every 6 hours as needed HYDROCODONE-ACETAMINOPHEN 27873095341 No Longer Active Checo Conklin MD Active ONDANSETRON 8 MG ORAL TABLET DISINTEGRATING place one tablet on tongue and allow to dissolve every 6 hours as needed for vomitting ONDANSETRON 81423489697 No Longer Active Checo Conklin MD Activ e COMPRO 25 MG RECTAL SUPPOSITORY insert or apply one garza ppository rectally as directed every 12 hours as needed for nausea PROCHLORPERAZINE 74110636562 No Longer Active Checo Conklin MD A ctive SUMATRIPTAN SUCCINATE 100 MG ORAL TABLET Take one PRN for migran e SUMATRIPTAN SUCCINATE 35373743665 No Longer Active Checo Conklin MD Active TRAVEL SICKNESS 25 MG ORAL TABLET CHEWABLE chew and sw allow one tablet every 6 hours as needed MECLIZINE HCL 02081573459 No Longer A ctive Checo Conklin MD Active BUPROPION HCL ER (SR) 100 MG ORAL TABLET EXTENDED RELE ASE 12 HOUR take one tablet by mouth one time daily for one week then take 1 two times daily BUPROPION HCL 35747819500 No Longer Active Checo gallagher MD Active TERBINAFINE HCL 250 MG ORAL TABLET take one table PO one time da moises TERBINAFINE HCL 95552119113 No Longer Active Checo Conklin MD Active METOCLOPRAMIDE HCL 10 MG ORAL TABLET take one PO tid PRN nausea METOCLOPRAMIDE HCL 10380097610 No Longer Active Checo Conklin MD Active DICLOFENAC SODIUM 75 MG ORAL TABLET DELAYED RELEASE 1 tablet by mouth twice daily PRN Knee pain DICLOFENAC SODIUM 69689197836 No Longer Active Checo Conklin MD Active LAMISIL 250 MG ORAL TABLET 1 po qd TERBINAFI NE HCL 04335569919 No Longer Active Checo Conklin MD Active REGLAN 10 MG ORAL TABLET 1 po TID PRN Nausea 3 METOCLOPRAMIDE HCL 67003858264 No Longer Active Checo Conklin MD Active CELEXA 20 MG ORAL TABLET 1 tablet by mouth daily 09/26 CITALOPRAM HYDROBROMIDE 81156980653 No Longer Active Checo Conklin MD Active AZITHROMYCIN 250 MG ORAL TABLET 2 po qd x 1 day, then 1 po q d x 4 days AZITHROMYCIN 45389495846 No Longer Active Checo Ortiz MD Active HYDROCODONE-ACETAMINOPHEN 5-325 MG ORAL TABLET 1 po q 6hr PRN Pa in HYDROCODONE-ACETAMINOPHEN 18591013806 No Longer Active Lenora Conklin MD Active PHENAZOPYRIDINE HCL 200 MG ORAL TABLET take 1 tab po TID for bladder pain PHENAZOPYRIDINE HCL 41611123425 No Longer Active Joe Conklin MD Active CIPRO 500 MG ORAL TABLET 1 tablet by mouth twice daily CIPROFLOXACIN HCL 42477197958 No Longer Active Dangelo Rangel MD Active HYDROCODONE-ACETAMINOPHEN 5-325 MG ORAL TABLET 1/2 to 1 po q 4 hours prn cough HYDROCODONE-ACETAMINOPHEN 33848388303 No Longer Activ e Dangelo Rangel MD Active BACTRIM DS 800-160 MG ORAL TABLET 1 po BID x 7 days 29/04/10 SULFAMETHOXAZOLE-TRIMETHOPRIM 10148915076 No Longer Active Checo Conklin MD Active PREDNISONE 20 MG ORAL TABLET 2 tabs daily for 3 days, 1 tab daily for 3 days, 1/2 tab daily for 2 days PREDNISONE 28399279717 No Longer Active Checo Conklin MD Active TRIAMCINOLONE ACETONIDE 0.1 % EXTERNAL OINTMENT Apply to affected areas TID for up to 2 weeks TRIAMCINOLONE ACETONIDE 27638761924 No Longer Active Checo Conklin MD Active CEFDINIR 300 MG ORAL CAPSULE by mouth twice a day 2013 CEFDINIR 76208635157 No Longer Active Dangelo Rangel MD Acti ve BUPROPION HCL ER (SMOKING DET) 150 MG ORAL TABLET EXTE NDED RELEASE 12 HOUR 1 a day for 1 week then 1 twice a day BUPROPION HCL (SMOKING DETER) 46290234978 No Longer Active Checo Conklin MD Active CHANTIX STARTING MONTH KARTHIK 0.5 MG X 11 & 1 MG X 42 ORA L TABLET 0.5mg daily for 3 days, then 0.5mg BID for 4 days, then 1mg BID VARENICLINE TARTRATE 06650947749 No Longer Active Checo Conklin MD Activ e CONCERTA 18 MG ORAL TABLET EXTENDED RELEASE 1 po q a.m. METHYLPHENIDATE HCL 43081924447 No Longer Active Checo Conklin MD Active TRAZODONE HCL 100 MG ORAL TABLET 0.5 to 1 po qHS PRN Insomnia 20 30/07/08 TRAZODONE HCL 41766644273 No Longer Active Checo Conklin MD Active FIORICET 325-50-40 MG TAB 1 tablet by mouth four times daily as needed [id number] 48116197868 No Longer Active Checo Conklin MD Active PHENERGAN CREAM* 25mg applied to wrist q6hr PRN Nausea PHENERGAN CREAM* No Longer Active Checo Conklin MD A ctive FLONASE 50 MCG/ACT NASAL SUSPENSION 1 spray each nostril am and hs FLUTICASONE PROPIONATE 58166467490 No Longer Active Checo Conklin MD Active ANTIPYRINE-BENZOCAINE 5.4-1.4 % OTIC SOLUTION 1-2 drops in affec yohannes ear BENZOCAINE-ANTIPYRINE 14918840977 No Longer Active Checo Conklin MD Active CEFDINIR 300 MG ORAL CAPSULE 1 po bid CEFDINIR 81770722665 No Longer Active Checo Conklin MD Active PREDNISONE 20 MG ORAL TABLET 2 tabs daily for 3 days, 1 tab daily for 3 days, 1/2 tab daily for 2 days PREDNISONE 05102743847 No Longer Active Checo Conklin MD Active AZITHROMYCIN 250 MG ORAL TABLET 2 po qd x 1 day, then 1 po q d x 4 days AZITHROMYCIN 22568339408 No Longer Active Checo Ortiz MD Active PREDNISONE 20 MG ORAL TABLET 2 tabs daily for 3 days, 1 tab daily for 3 days, 1/2 tab daily for 2 days PREDNISONE 62143984553 No Longer Active Checo Conklin MD Active ZITHROMAX Z-KARTHIK 250 MG ORAL TABLET 2 today, then 1 daily for 4 d ays AZITHROMYCIN 15534220898 No Longer Active Paul Hamlin MD Active FOCALIN XR 10 MG ORAL CAPSULE EXTENDED RELEASE 24 HOUR 1 po q a. m. DEXMETHYLPHENIDATE HCL 87108605344 No Longer Active Paul Hamlin MD Active PERCOCET 10-325 MG ORAL TABLET 1 tablet every 6 hours as needed for pain OXYCODONE-ACETAMINOPHEN 39530282031 No Longer Active Paul Hamlin MD Active LORTAB 5-500 MG ORAL TABLET 1/2 to 1 tablet by mouth e very 4 hours as needed for pain HYDROCODONE-ACETAMINOPHEN 63694397472 No Longer Active Checo Conklin MD Active FOCALIN XR 15 MG ORAL CAPSULE EXTENDED RELEASE 24 HOUR 1 po q a. m. DEXMETHYLPHENIDATE HCL 66985107029 No Longer Active Checo Conklin MD Active ZOFRAN ODT 4 MG ORAL TABLET DISINTEGRATING 1 po q6hr PRN Nausea ONDANSETRON 95827098570 No Longer Active Checo Conklin MD Active PERCOCET 5-325 MG ORAL TABLET 1 tablet by mouth every 6 hour s as needed OXYCODONE-ACETAMINOPHEN 95259184296 No Longer Active Checo Conklin MD Active PYRIDIUM 200 MG ORAL TABLET take 1 tab po TID prn urinary pain. PHENAZOPYRIDINE HCL 40048978566 No Longer Active Checo Joshua Active FLUCONAZOLE 150 MG ORAL TABLET take 1 tab po qday once FLUCONAZOLE 83670771478 No Longer Active Dangelo Rangel MD Acti ve CIPRO 500 MG ORAL TABLET 1 tablet by mouth twice daily CIPROFLOXACIN HCL 23867531764 No Longer Active Dangelo Rangel MD Active PYRIDIUM 200 MG ORAL TABLET take 1 tab po TID prn urinary pain. PYRIDIUM 200 MG ORAL TABLET 4578184 PHENAZOPYRIDINE HCL Inactive PERCOCET 5-325 MG ORAL TABLET 1 tablet by mouth every 6 hour s as needed PERCOCET 5-325 MG ORAL TABLET 2703650 OXYCODONE-ACETAMINOPHEN Inactive ZOFRAN ODT 4 MG ORAL [...] for pain PERCOCET 10-325 MG ORAL TABLET 9930606 OXYCODONE-ACETAMI NOPHEN Inactive FOCALIN XR 10 MG ORAL CAPSULE EXTENDED RELEASE 24 HOUR 1 po q a. m. FOCALIN XR 10 MG ORAL CAPSULE EXTENDED RELEASE 24 HOUR DEXMETHYLPHENIDATE HCL Inactive CEFDINIR 300 MG ORAL CAPSULE 1 po bid CEFDINI R 300 MG ORAL CAPSULE 842794 CEFDINIR Inactive ANTIPYRINE-BENZOCAINE 5.4-1.4 % OTIC SOLUTION [...] 30/07/08 TRAZODONE HCL 100 MG ORAL TABLET 610804 TRAZODONE HCL Inactive CONCERTA 18 MG ORAL [...] cough HYDROCODONE-ACETAMINOPHEN 5-325 MG ORAL TABLET 8 42296 HYDROCODONE-ACETAMINOPHEN Inactive PHENAZOPYRIDINE HCL 200 MG ORAL TABLET take 1 tab po TID for bladder pain PHENAZOPYRIDINE HCL 200 MG ORAL TABLET 6840418 PHENAZOPYRIDINE HCL Inactive HYDROCODONE-ACETAMINOPHEN 5-325 MG ORAL TABLET 1 po q 6hr PRN Pa in HYDROCODONE-ACETAMINOPHEN 5-325 MG ORAL TABLET 878389 HYDROCODONE-ACETAMINOPHEN Inactive CELEXA 20 MG ORAL TABLET 1 tablet by mouth daily 09/26 CELEXA 20 MG ORAL TABLET 601997 CITALOPRAM HYDROBROMIDE Inactive REGLAN 10 MG ORAL TABLET 1 po TID PRN Nausea 3 REGLAN 10 MG ORAL TABLET 775533 METOCLOPRAMIDE HCL Inactive LAMISIL 250 MG ORAL TABLET 1 po qd L AMISIL 250 MG ORAL TABLET 681913 TERBINAFINE HCL Inactive DICLOFENAC SODIUM 75 MG ORAL TABLET DELAYED RELEASE 1 tablet by mouth twice daily PRN Knee pain DICLOFENAC SODIUM 75 MG ORAL TABLET DELAYED RELEASE 585187 DICLOFENAC SODIUM Inactive METOCLOPRAMIDE HCL 10 MG ORAL TABLET take one PO tid PRN nausea METOCLOPRAMIDE HCL 10 MG ORAL TABLET 384357 METOCLOPRAM ZACH HCL Inactive TERBINAFINE HCL 250 MG ORAL TABLET take one table PO one time da moises TERBINAFINE HCL 250 MG ORAL TABLET 395248 TERBINAFINE H CL Inactive BUPROPION HCL ER [...] SICKNESS 25 M G ORAL TABLET CHEWABLE 947045 MECLIZINE HCL Inactive SUMATRIPTAN SUCCINATE 100 MG ORAL TABLET Take one PRN for migran e SUMATRIPTAN SUCCINATE 100 MG ORAL TABLET 454883 SUMATRIPTAN SUCCINATE Inactive COMPRO 25 MG RECTAL SUPPOSITORY insert or apply one garza ppository rectally as directed every 12 hours as needed for nausea COMPRO 25 MG RECTAL SUPPOSITORY 911359 PROCHLORPERAZINE Inactive ONDANSETRON 8 MG ORAL TABLET DISINTEGRATING place one tablet on tongue and allow to dissolve every 6 hours as needed for vomitting ONDANSETRON 8 MG ORAL TABLET DISINTEGRATING 011449 ONDANSETRON Inactive HYDROCODONE-ACETAMINOPHEN 5-325 MG ORAL TABLET 0.5 to 1 tab by mouth every 6 hours as needed HYDROCODONE-ACETAMIN OPHEN 5-325 MG ORAL TABLET 748292 HYDROCODONE-ACETAMINOPHEN Inactive BACTRIM DS 800-160 MG ORAL TABLET 1 tab by mouth twice daily 201 11/23/03 BACTRIM DS 800-160 MG ORAL TABLET 276364 TRIMETHOPRIM-SULFAMETHOXAZOLE Inactive DIFLUCAN 150 MG ORAL TABLET 1 tablet by mouth if neede d, hold until symptoms start DIFLUCAN 150 MG ORAL TABLET 533556 FLUCONAZ OLE Inactive IBUPROFEN 800 MG ORAL TABLET 1 tab every 8 hours with food 03/20 IBUPROFEN 800 MG ORAL TABLET 981646 IBUPROFEN [place] ctive HYDROCODONE-ACETAMINOPHEN 5-325 MG ORAL TABLET 1 tab b y mouth every 6 hours as needed HYDROCODONE-ACETAMINOPHEN 5-325 MG ORAL TABLET 893543 HYDROCODONE-ACETAMINOPHEN Inactive BACTROBAN 2 % EXTERNAL CREAM Apply to affected area BID for up to 10 days BACTROBAN 2 % EXTERNAL CREAM MUPIROCIN CA LCIUM Inactive MAGNESIUM CITRATE 1.745 GM/30ML ORAL SOLUTION 150ml po BID P RN Constipation MAGNESIUM CITRATE 1.745 GM/30ML ORAL SOLUTION 10 08959 MAGNESIUM CITRATE Inactive DIFLUCAN 150 MG ORAL TABLET 1 tablet by mouth qod 2015 DIFLUCAN 150 MG ORAL TABLET 363377 FLUCONAZOLE Inactive BACTRIM DS 800-160 MG ORAL TABLET 1 tab by mouth twice daily 201 12/19/26 BACTRIM DS 800-160 MG ORAL TABLET 383314 TRIMETHOPRIM-SULFAMETHOXAZOLE Inactive CLARITIN 10 MG ORAL TABLET 1 tablet by mouth daily as needed for allergies CLARITIN 10 MG ORAL TABLET 023655 LORATADINE I nactive FLUTICASONE PROPIONATE 50 MCG/ACT NASAL SUSPENSION 2 s prays/nostril qd PRN Congestion/Allergies FLUTICASONE PROPION ATE 50 MCG/ACT NASAL SUSPENSION 3989745 FLUTICASONE PROPIONATE Inactive MIRALAX ORAL POWDER 8.5 to 17g po qd PRN Constipation MIRALAX ORAL POWDER 366909 POLYETHYLENE GLYCOL 3350 Inactive IBUPROFEN 800 MG ORAL TABLET 1 tab every 8 hours as needed for p ain IBUPROFEN 800 MG ORAL TABLET 374487 IBUPROFEN [place] ctive HYDROCHLOROTHIAZIDE 12.5 MG ORAL CAPSULE 1 po qd PRN Edema 01/10 HYDROCHLOROTHIAZIDE 12.5 MG ORAL CAPSULE 772218 HYDROCH LOROTHIAZIDE Inactive KLOR-CON 10 10 MEQ ORAL TABLET EXTENDED RELEASE 1 daily with furosemide KLOR-CON 10 10 MEQ ORAL TABLET EXTENDED RELEASE POTASSIUM CHLORIDE Inactive FUROSEMIDE 20 MG ORAL TABLET 1 daily for swelling 2018 FUROSEMIDE 20 MG ORAL TABLET 056661 FUROSEMIDE Inactive SIMVASTATIN 20 MG ORAL TABLET 1 po qd SIMVASTATIN 20 MG ORAL TABLET 016903 SIMVASTATIN Inactive FOCALIN XR 10 MG ORAL CAPSULE EXTENDED RELEASE 24 HOUR 1 po q a. m. FOCALIN XR 10 MG ORAL CAPSULE EXTENDED RELEASE 24 HOUR DEXMETHYLPHENIDATE HCL Inactive PAROXETINE HCL 40 MG ORAL TABLET 1 po qd PAROXETINE HCL 40 MG ORAL TABLET 2726031 PAROXETINE HCL Inactive XANAX 0.5 MG ORAL TABLET 1 po BID PRN anxiety XANAX 0.5 MG ORAL TABLET 715483 ALPRAZOLAM Inactive AMBIEN 5 MG ORAL TABLET 1 po qHS PRN Insomnia AMBIEN 5 MG ORAL TABLET 203633 ZOLPIDEM TARTRATE Inactive PROZAC 10 MG ORAL CAPSULE 1 PO Daily MI OZAC 10 MG ORAL CAPSULE 424961 FLUOXETINE HCL Inactive CIPRO 500 MG ORAL TABLET 1 tablet by mouth twice daily CIPRO 500 MG ORAL TABLET 455895 CIPROFLOXACIN HCL Inactive FLUCONAZOLE 150 MG ORAL TABLET take 1 tab po qday once FLUCONAZOLE 150 MG ORAL TABLET 284839 FLUCONAZOLE Inactive ZITHROMAX Z-KARTHIK 250 MG ORAL TABLET 2 today, then 1 daily for 4 d ays ZITHROMAX Z-KARTHIK 250 MG ORAL TABLET 600196 AZITHROMYCIN Inactive PREDNISONE 20 MG ORAL TABLET 2 tabs daily for 3 days, 1 tab daily for 3 days, 1/2 tab daily for 2 days PREDNISONE 20 MG ORAL T ABLET 469808 PREDNISONE Inactive AZITHROMYCIN 250 MG ORAL TABLET 2 po qd x 1 day, then 1 po q d x 4 days AZITHROMYCIN 250 MG ORAL TABLET 570393 AZITHROMY SPARKLE Inactive PREDNISONE 20 MG ORAL TABLET 2 tabs daily for 3 days, 1 tab daily for 3 days, 1/2 tab daily for 2 days PREDNISONE 20 MG ORAL TABLET 725334 PREDNISONE Inactive CEFDINIR 300 MG ORAL CAPSULE by mouth twice a day 2013 CEFDINIR 300 MG ORAL CAPSULE 050258 CEFDINIR Inactive TRIAMCINOLONE ACETONIDE 0.1 % EXTERNAL OINTMENT Apply to affected areas TID for up to 2 weeks TRIAMCINOLONE ACETON ZACH 0.1 % EXTERNAL OINTMENT 3514838 TRIAMCINOLONE ACETONIDE Inactive PREDNISONE 20 MG ORAL TABLET 2 tabs daily for 3 days, 1 tab daily for 3 days, 1/2 tab daily for 2 days PREDNISONE 20 MG ORAL T ABLET 051276 PREDNISONE Inactive BACTRIM DS 800-160 MG ORAL TABLET 1 po BID x 7 days 29/04/10 BACTRIM DS 800-160 MG ORAL TABLET 938801 SULFAMETHOXAZOLE-TRIMETHOP RIM Inactive CIPRO 500 MG ORAL TABLET 1 tablet by mouth twice daily CIPRO 500 MG ORAL TABLET 243280 CIPROFLOXACIN HCL Inactive AZITHROMYCIN 250 MG ORAL TABLET 2 po qd x 1 day, then 1 po q d x 4 days AZITHROMYCIN 250 MG ORAL TABLET 113938 AZITHROMY SPARKLE Inactive FLAGYL 500 MG ORAL TABLET 1 tablet by mouth bid 04/13 FLAGYL 500 MG ORAL TABLET 170365 METRONIDAZOLE Inactive AZITHROMYCIN 250 MG ORAL TABLET 2 po qd x 1 day, then 1 po q d x 4 days AZITHROMYCIN 250 MG ORAL TABLET 167841 AZITHROMY SPARKLE Inactive AMOXICILLIN 500 MG ORAL CAPSULE 2 po BID x 10 days 201 01/15/27 AMOXICILLIN 500 MG ORAL CAPSULE 580382 AMOXICILLIN Inactive AMOXICILLIN 500 MG ORAL CAPSULE 2 po BID x 14 days for H. Pylori AMOXICILLIN 500 MG ORAL CAPSULE 275684 AMOXICILLIN Inactive CLARITHROMYCIN 500 MG ORAL TABLET 1 tab po BID x 14 days CLARITHROMYCIN 500 MG ORAL TABLET 597745 CLARITHROMYCIN Inacti ve FLAGYL 500 MG ORAL TABLET 1 tablet by mouth bid 08/29 FLAGYL 500 MG ORAL TABLET 048111 METRONIDAZOLE Inactive PROTONIX 40 MG ORAL TABLET DELAYED RELEASE 1 pill by m outh daily, for acid reflux PROTONIX 40 MG ORAL TABLET DELAYED RELEAS E 971354 PANTOPRAZOLE SODIUM Inactive Immunizations Vaccine Administration Date [...] Panel - Chemistry sodium, serum 142 mmol/L 189-650 6784/07/22 carbon dioxide, venous blood 26.3 mmol/L 21.0-32 [...] 0.80 mg/dL 0.00-1.00 cholesterol, serum 172 mg/dL 387-646 0786/07/22 triglyceride, serum, fasting 222 mg/dL 30-200 HDL cholesterol, serum 28 mg/dL 32-60 LDL cholesterol, serum 100 mg/dL 0-130 Lab Report: CBC, Comp. Metabolic Panel, Lipid Panel - Hematology leukocyte count, blood 9.1 10^3/MM^3 10*3/mm3 4.6-10.2 mean corpuscular hemoglobin concentration, RBC 32.5 G/DL % 31.8-35.4 red blood cell distribution width 11.7 % 11 .6-14.8 platelet count 210 10^3/MM^3 10*3/mm3 742-489 4728/07/22 erythrocyte (RBC) count 4.72 10^6/MM^3 10*6/mm3 3.80-5.8 0 hemoglobin, blood 15.0 g/dL 12.0-16.0 hematocrit, blood 46.0 % 37.0-47.0 mean corpuscular volume, RBC 97 fL 80-97 mean corpuscular hemoglobin, RBC 31.7 pg 27. 0-31.2 Lab Report: CBC, Comp. Metabolic Panel, Lipid Panel - Lab Alkaline phosphatase 88 50-136 Lab Report: MICROALB/CREAT W/RATIO - Lab microalbumin, urine 30 mg/L 0-19 Lab Report: MICROALB/CREAT W/RATIO - Uri nalysis microalbumin/total urine volume <30 mg/g Normal mg/g mg/L 0-29 Lab Report: UADIP W/MICRO, AUTO - Chemis try RBC, urine, dipstick Trace-lysed Negative protein, total urine random Negative mg/dL Negative Lab Report: UADIP W/MICRO, AUTO - Urinal ysis pH, urine, semiquantitative 6.5 5.0-8.5 specific gravity, urine 1.015 1.000-1.030 appearance, urine Clear Clear urine color Yellow Colorless;Lightyellow;St raw;Yellow urobilinogen, urine, semiquantitative (dipstick) 0.2 E .U./dL Normal leukocyte esterase, urine, by dipstick Negative Negative nitrite, urine, semiquantitative Negative Neg ative glucose, urine, semiquantitative Negative Neg ative ketones, urine, by test strip Negative Negati ve bilirubin, urine Negative Negative Encounters Code Encounter Date Provider Facility CPT-60812 Level 3 Est. Patient 09:11:53 CDT [facility] Level 3 Est. Patient 16:46:51 CDT Thomas reynolds DO [facility] CPT-29894 [id number] Vst-Est Level III 14:40:49 CDT Paul Hamlin MD [facility] CPT-83306 Level 4 Est. Patient 11:08:43 CDT Checo Conklin MD [facility]-91540 [id number] Vst-Est Level III 09:37:41 CDT Dangelo Rangel MD [facility] CPT-75029 Level 4 Est. Patient 08:57:51 [employer] Checo Conklin MD [facility] CPT-69678 Level 3 Est. Patient 11:24:55 [employer] Efren almendarez [facility] CPT-42654 Level 3 Est. Patient 13:05:44 CDT Paul Hamlin MD [facility] CPT-99383 Level 3 Est. Patient 11:29:55 CDT Checo Conklin MD [facility] CPT-12695 Level 4 Est. Patient 11:08:12 [employer] Checo Conklin MD [facility] CPT-48027 Level 4 Est. Patient 16:06:48 [employer] Checo Conklin MD [facility] CPT-48537 Level 3 Est. Patient 09:11:49 CDT Efren almendarez [facility] CPT-46900 Level 2 Est. Patient 19:53:27 CDT Tanner hill MD [facility] CPT-23484 Level 3 Est. Patient 09:15:34 CDT Efren almendarez [facility] CPT-30198 Level 3 Est. Patient 11:28:51 [employer] Efren almendarez [facility] CPT-05848 Level 4 Est. Patient 13:55:46 [employer] Checo Conklin MD [facility] CPT-57094 Level 4 Est. Patient 17:10:53 CDT Checo Conklin MD [facility] CPT-46029 Level 3 Est. Patient 15:56:22 CDT Checo Conklin MD [facility] CPT-59364 Level 3 Est. Patient 15:29:07 CDT Checo Conklin MD [facility] CPT-50454 Level 3 Est. Patient 14:38:41 CDT Checo Conklin MD [facility] CPT-52934 Level 3 Est. Patient 15:22:03 [employer] Thomas reynolds DO [facility] CPT-88437 Level 3 Est. Patient 13:34:17 [employer] Checo Conklin MD [facility] CPT-12104 Level 3 Est. Patient 12:29:32 CDT Dangelo arroyo MD [facility] CPT-91432 Level 3 Est. Patient 16:53:02 CDT Checo Conklin MD [facility] CPT-55390 Level 3 Est. Patient 16:37:13 CDT Checo Conklin MD [facility] CPT-69979 Level 3 Est. Patient 16:16:59 CDT Paul Hamlin MD [facility] CPT-88718 Level 3 Est. Patient 14:20:13 CDT Dangelo arroyo MD [facility] CPT-93215 Level 4 Est. Patient 11:29:33 CDT Checo Conklin MD [facility] CPT-14400 Level 3 Est. Patient 17:08:31 CDT Checo Conklin MD [facility] CPT-02254 Level 3 Est. Patient 16:50:42 [employer] Checo Conklin MD [facility] CPT-35552 Level 4 Est. Patient 09:26:08 [employer] Checo Conklin MD [facility] CPT-15074 Level 3 Est. Patient 11:37:10 CDT Checo Conklin MD [facility] CPT-06283 Level 4 Est. Patient 14:07:38 CDT Checo Conklin MD [facility] CPT-22958 Level 3 Est. Patient 09:54:41 CDT Checo Conklin MD [facility] CPT-78135 Level 3 Est. Patient 11:10:54 CDT Paul Hamlin MD [facility] CPT-58265 Level 3 Est. Patient 14:16:56 [employer] Checo Conklin MD [facility] CPT-92048 Level 3 Est. Patient 11:04:11 [employer] Checo Conklin MD [facility] CPT-02910 Level 3 Est. Patient 17:09:26 CDT Dangelo arroyo MD [facility] CPT-54473 Level 3 Est. Patient 16:54:37 CDT Checo Conklin MD [facility] Procedures Code Procedure Name Date Entry Date Standard Desc ription CPT-63027 Abx/Therapy Injection 09:52:15 CDT CPT-88723 Abx/Therapy Injection 18:17:48 CDT CPT-J2550 Phenergan 25 mg (Promethazine) 16:48:23 CDT CPT-J1885 Toradol 60 mg 16:48:23 CDT CPT-60848 Wrist, right, comp 3V - XRAY USE ONLY 09:24:31 CDT CPT-21650 Abd compl w upright - XRAY USE ONLY 1 1:36:54 [employer] CPT-33956 UA w micro - LAB USE ONLY 17:06:46 CDT 2015 CPT-14221 [facility] Qual - LAB USE ONLY 17:06:46 CDT 05/06 CPT-97424 CMP - LAB USE ONLY 17:06:46 CDT CPT-90798 CBC with Diff - LAB USE ONLY 17:06:45 CDT 2 CPT-71422 Venipuncture Draw Fee 17:06:45 CDT CPT-LR Lesion Removal 19:53:27 CDT CPT-OV Office Visit 11:31:28 CDT CPT-09586 Tubersol 09:39:29 CDT CPT-J2550 Phenergan 25 mg (Promethazine) 13:59:02 [employer] CPT-J1885 Toradol 60 mg (Ketorolac) 13:59:02 [employer] 2012
--- OUTSIDE RECORDS SUMMARY | 2019-09-29 01:12 | XMS REPORT | Clinical Summary ---
Author Author Admin, Bethany Gonzales Organization [facility] Address Unknown Phone Unavailable Allergies, Adverse Reactions, [...] Index 27.0-27.9 Adult Resolved 2018 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 [employer]IER-C Body Mass Index 27.0-27.9, adult Body Mass Index 26.0-26.9 Adult Refinement 2017 Thomas Marks DO Body Mass Index 26.0-26.9, adult BMI 25-25.9 Active 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 [employer]IER-C Body Mass Index 26.0-26.9, adult Wellness examination, routine medical V70.0 Active 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 [employer] C[employer]IER-C Routine general medical examination at a health care facility Hypertension 401.9 Active 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 [employer]-C Unspecified essential hypertension Screening for cardiovascular condition V81.2 Active 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 APRN-C Screening for other and unspecified card iovascular conditions BREAST CANCER ICD-V16.3 Inactive Checo Joshua FH DIABETES ICD-V18.0 Inactive Checo Conklin MD 201 08/27/26 CONCUSSION ICD-850.9 Inactive Checo Joshua UTI ICD-599.0 Inactive Checo Conlkin MD 2013 ABDOMINAL PAIN RIGHT LOWER QUADRANT [...] 2 weeks if needed CITALOPRAM HYDRO BROMIDE 74359493169 Active Radha Sherman [employer]-C Active PROZAC 10 MG ORAL CAPSULE 1 PO Daily FLUOXETINE HCL 75252568521 No Longer Active Radha Sherman [employer]-C Active VYVANSE 30 MG ORAL CAPSULE 1 PO daily LISDEXAMF ETAMINE DIMESYLATE 45589450093 Active Radha Sherman [employer]-C Active XANAX 0.5 MG ORAL TABLET 1 tablet PO BID; PRN A LPRAZOLAM 41222530743 Active Radha Sherman [employer]-C Active SIMVASTATIN 20 MG ORAL TABLET 1 tablet PO daily SI MVASTATIN 94950334560 Active Radha Sherman [employer]-C Active IBUPROFEN 800 MG ORAL TABLET 1 tablet PO q8hr PRN IBUPROFEN 94250582083 Active Radhasantos Whitaker APRN-C Active AMBIEN 5 MG ORAL TABLET 1 tablet PO once daily; PRN ZOLPIDEM TARTRATE 48075338524 Active 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 APRN-C Active ALBUTEROL SULFATE HFA 108 (90 BASE) MCG/ACT INHALATION AEROSOL SOLUTION 2 puffs, INH, q4hr PRN ALBUTEROL SULFATE 38325808598 Active Radha Sherman A PRN-C Active AMBIEN 5 MG ORAL TABLET 1 po qHS PRN Insomnia ZOLPIDEM TARTRATE 40999792732 No Longer Active 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 APRN-C Active XANAX 0.5 MG ORAL TABLET 1 po BID PRN anxiety A LPRAZOLAM 24129162282 No Longer Active 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 APRN-C Active PAROXETINE HCL 40 MG ORAL TABLET 1 po qd PAR OXETINE HCL 96971838631 No Longer Active 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 APRN-C Active FOCALIN XR 10 MG ORAL CAPSULE EXTENDED RELEASE 24 HOUR 1 po q a. m. DEXMETHYLPHENIDATE HCL 85087264868 No Longer Active Radha Low [employer]IER-C Active SIMVASTATIN 20 MG ORAL TABLET 1 po qd SIMVAS TATIN 40685461237 No Longer Active 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 APRN-C Active FUROSEMIDE 20 MG ORAL TABLET 1 daily for swelling 2018 FUROSEMIDE 91473007981 No Longer Active 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 APRN-C Active KLOR-CON 10 10 MEQ ORAL TABLET EXTENDED RELEASE 1 daily with furosemide POTASSIUM CHLORIDE 62056671422 No Longer Active 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 APRN-C Active HYDROCHLOROTHIAZIDE 12.5 MG ORAL CAPSULE 1 po qd PRN Edema 01/10 HYDROCHLOROTHIAZIDE 54884277703 No Longer Active Paul Hamlin MD Active IBUPROFEN 800 MG ORAL TABLET 1 tab every 8 hours as needed for p ain IBUPROFEN 91978472817 No Longer Active Paul Hamlin MD Active MIRALAX ORAL POWDER 8.5 to 17g po qd PRN Constipation POLYETHYLENE GLYCOL 3350 25332245114 No Longer Active Checo Conklin MD Active PROTONIX 40 MG ORAL TABLET DELAYED RELEASE 1 pill by m out daily, for acid reflux PANTOPRAZOLE SODIUM 68305601364 No Longer Activ e Corry Méndez LPN Active FLAGYL 500 MG ORAL TABLET 1 tablet by mouth bid 08/29 METRONIDAZOLE 08542614009 No Longer Active Corry Méndez LPN Active CLARITHROMYCIN 500 MG ORAL TABLET 1 tab po BID x 14 days CLARITHROMYCIN 54772623328 No Longer Active Corry Méndez LPN Active AMOXICILLIN 500 MG ORAL CAPSULE 2 po BID x 14 days for H. Pylori AMOXICILLIN 50104973934 No Longer Active Corry Méndez LPN Active FLUTICASONE PROPIONATE 50 MCG/ACT NASAL SUSPENSION 2 s prays/nostril qd PRN Congestion/Allergies FLUTICASONE PROPIONATE 5342461096 9 No Longer Active Checo Conklin MD Active AMOXICILLIN 500 MG ORAL CAPSULE 2 po BID x 10 days 201 01/15/27 AMOXICILLIN 63812505779 No Longer Active Checo Conklin MD Activ e CLARITIN 10 MG ORAL TABLET 1 tablet by mouth daily as needed for allergies LORATADINE 09767956354 No Longer Active Checo Ortiz MD Active BACTRIM DS 800-160 MG ORAL TABLET 1 tab by mouth twice daily 201 12/19/26 TRIMETHOPRIM-SULFAMETHOXAZOLE 36862346912 No Longer Active Ragini Carrillo MD Active DIFLUCAN 150 MG ORAL TABLET 1 tablet by mouth qod 2015 FLUCONAZOLE 59177083831 No Longer Active Efren Medel APRN Act mike AZITHROMYCIN 250 MG ORAL TABLET 2 po qd x 1 day, then 1 po q d x 4 days AZITHROMYCIN 98140055996 No Longer Active Efren flores APRN Active FLAGYL 500 MG ORAL TABLET 1 tablet by mouth bid 04/13 METRONIDAZOLE 48606939974 No Longer Active Checo Conklin MD Acti ve MAGNESIUM CITRATE 1.745 GM/30ML ORAL SOLUTION 150ml po BID P RN Constipation MAGNESIUM CITRATE 58689477869 No Longer Active Checo Conklin MD Active BACTROBAN 2 % EXTERNAL CREAM Apply to affected area BID for up to 10 days MUPIROCIN CALCIUM 05932509242 No Longer Active Checo Conklin MD Active HYDROCODONE-ACETAMINOPHEN 5-325 MG ORAL TABLET 1 tab b y mouth every 6 hours as needed HYDROCODONE-ACETAMINOPHEN 07577930050 No Longer Active Checo Conklin MD Active IBUPROFEN 800 MG ORAL TABLET 1 tab every 8 hours with food 03/20 IBUPROFEN 27283189705 No Longer Active Checo Conklin MD Active DIFLUCAN 150 MG ORAL TABLET 1 tablet by mouth if neede d, hold until symptoms start FLUCONAZOLE 25391684278 No Longer Active Checo Conklin MD Active BACTRIM DS 800-160 MG ORAL TABLET 1 tab by mouth twice daily 201 11/23/03 TRIMETHOPRIM-SULFAMETHOXAZOLE 71417611461 No Longer Active K bernice Méndez LPN Active HYDROCODONE-ACETAMINOPHEN 5-325 MG ORAL TABLET 0.5 to 1 tab by mouth every 6 hours as needed HYDROCODONE-ACETAMINOPHEN 36078465335 No Longer Active Checo Conklin MD Active ONDANSETRON 8 MG ORAL TABLET DISINTEGRATING place one tablet on tongue and allow to dissolve every 6 hours as needed for vomitting ONDANSETRON 31381990095 No Longer Active Checo Conklin MD Activ e COMPRO 25 MG RECTAL SUPPOSITORY insert or apply one garza ppository rectally as directed every 12 hours as needed for nausea PROCHLORPERAZINE 36281032516 No Longer Active Checo Conklin MD A ctive SUMATRIPTAN SUCCINATE 100 MG ORAL TABLET Take one PRN for migran e SUMATRIPTAN SUCCINATE 82069973061 No Longer Active Checo Conklin MD Active TRAVEL SICKNESS 25 MG ORAL TABLET CHEWABLE chew and sw allow one tablet every 6 hours as needed MECLIZINE HCL 19847728456 No Longer A ctive Checo Conklin MD Active BUPROPION HCL ER (SR) 100 MG ORAL TABLET EXTENDED RELE ASE 12 HOUR take one tablet by mouth one time daily for one week then take 1 two times daily BUPROPION HCL 72380421089 No Longer Active Checo gallagher MD Active TERBINAFINE HCL 250 MG ORAL TABLET take one table PO one time da moises TERBINAFINE HCL 29900532869 No Longer Active Checo Conklin MD Active METOCLOPRAMIDE HCL 10 MG ORAL TABLET take one PO tid PRN nausea METOCLOPRAMIDE HCL 12124337798 No Longer Active Checo Conklin MD Active DICLOFENAC SODIUM 75 MG ORAL TABLET DELAYED RELEASE 1 tablet by mouth twice daily PRN Knee pain DICLOFENAC SODIUM 62850294425 No Longer Active Checo Conklin MD Active LAMISIL 250 MG ORAL TABLET 1 po qd TERBINAFI NE HCL 74533122102 No Longer Active Checo Conklin MD Active REGLAN 10 MG ORAL TABLET 1 po TID PRN Nausea 3 METOCLOPRAMIDE HCL 75460151300 No Longer Active Checo Conklin MD Active CELEXA 20 MG ORAL TABLET 1 tablet by mouth daily 09/26 CITALOPRAM HYDROBROMIDE 99637054372 No Longer Active Checo Conklin MD Active AZITHROMYCIN 250 MG ORAL TABLET 2 po qd x 1 day, then 1 po q d x 4 days AZITHROMYCIN 81838446816 No Longer Active Checo Ortiz MD Active HYDROCODONE-ACETAMINOPHEN 5-325 MG ORAL TABLET 1 po q 6hr PRN Pa in HYDROCODONE-ACETAMINOPHEN 66172663088 No Longer Active Lenora Conklin MD Active PHENAZOPYRIDINE HCL 200 MG ORAL TABLET take 1 tab po TID for bladder pain PHENAZOPYRIDINE HCL 64873423523 No Longer Active Joe Conklin MD Active CIPRO 500 MG ORAL TABLET 1 tablet by mouth twice daily CIPROFLOXACIN HCL 59914055532 No Longer Active Dangelo Rangel MD Active HYDROCODONE-ACETAMINOPHEN 5-325 MG ORAL TABLET 1/2 to 1 po q 4 hours prn cough HYDROCODONE-ACETAMINOPHEN 29539566252 No Longer Activ e Dangelo Rangel MD Active BACTRIM DS 800-160 MG ORAL TABLET 1 po BID x 7 days 29/04/10 SULFAMETHOXAZOLE-TRIMETHOPRIM 10145582959 No Longer Active Checo Conklin MD Active PREDNISONE 20 MG ORAL TABLET 2 tabs daily for 3 days, 1 tab daily for 3 days, 1/2 tab daily for 2 days PREDNISONE 35444312633 No Longer Active Checo Conklin MD Active TRIAMCINOLONE ACETONIDE 0.1 % EXTERNAL OINTMENT Apply to affected areas TID for up to 2 weeks TRIAMCINOLONE ACETONIDE 53372818134 No Longer Active Checo Conklin MD Active CEFDINIR 300 MG ORAL CAPSULE by mouth twice a day 2013 CEFDINIR 80550562453 No Longer Active Dangelo Rangel MD Acti ve BUPROPION HCL ER (SMOKING DET) 150 MG ORAL TABLET EXTE NDED RELEASE 12 HOUR 1 a day for 1 week then 1 twice a day BUPROPION HCL (SMOKING DETER) 55682275718 No Longer Active Checo Conklin MD Active CHANTIX STARTING MONTH KARTHIK 0.5 MG X 11 & 1 MG X 42 ORA L TABLET 0.5mg daily for 3 days, then 0.5mg BID for 4 days, then 1mg BID VARENICLINE TARTRATE 05582605381 No Longer Active Checo Conklin MD Activ e CONCERTA 18 MG ORAL TABLET EXTENDED RELEASE 1 po q a.m. METHYLPHENIDATE HCL 61810437765 No Longer Active Checo Conklin MD Active TRAZODONE HCL 100 MG ORAL TABLET 0.5 to 1 po qHS PRN Insomnia 20 30/07/08 TRAZODONE HCL 33193463817 No Longer Active Checo Conklin MD Active FIORICET 325-50-40 MG TAB 1 tablet by mouth four times daily as needed [id number] 79211099657 No Longer Active Checo Conklin MD Active PHENERGAN CREAM* 25mg applied to wrist q6hr PRN Nausea PHENERGAN CREAM* No Longer Active Checo Conklin MD A ctive FLONASE 50 MCG/ACT NASAL SUSPENSION 1 spray each nostril am and hs FLUTICASONE PROPIONATE 76464060898 No Longer Active Checo Conklin MD Active ANTIPYRINE-BENZOCAINE 5.4-1.4 % OTIC SOLUTION 1-2 drops in affec yohannes ear BENZOCAINE-ANTIPYRINE 96740831576 No Longer Active Checo Conklin MD Active CEFDINIR 300 MG ORAL CAPSULE 1 po bid CEFDINIR 24350588664 No Longer Active Checo Conklin MD Active PREDNISONE 20 MG ORAL TABLET 2 tabs daily for 3 days, 1 tab daily for 3 days, 1/2 tab daily for 2 days PREDNISONE 83413966840 No Longer Active Checo Conklin MD Active AZITHROMYCIN 250 MG ORAL TABLET 2 po qd x 1 day, then 1 po q d x 4 days AZITHROMYCIN 54562227072 No Longer Active Checo Ortiz MD Active PREDNISONE 20 MG ORAL TABLET 2 tabs daily for 3 days, 1 tab daily for 3 days, 1/2 tab daily for 2 days PREDNISONE 80403184657 No Longer Active Checo Conklin MD Active ZITHROMAX Z-KARTHIK 250 MG ORAL TABLET 2 today, then 1 daily for 4 d ays AZITHROMYCIN 20254533464 No Longer Active Paul Hamlin MD Active FOCALIN XR 10 MG ORAL CAPSULE EXTENDED RELEASE 24 HOUR 1 po q a. m. DEXMETHYLPHENIDATE HCL 33970343284 No Longer Active Paul Hamlin MD Active PERCOCET 10-325 MG ORAL TABLET 1 tablet every 6 hours as needed for pain OXYCODONE-ACETAMINOPHEN 30519348747 No Longer Active Paul Hamlin MD Active LORTAB 5-500 MG ORAL TABLET 1/2 to 1 tablet by mouth e very 4 hours as needed for pain HYDROCODONE-ACETAMINOPHEN 17262214662 No Longer Active Checo Conklin MD Active FOCALIN XR 15 MG ORAL CAPSULE EXTENDED RELEASE 24 HOUR 1 po q a. m. DEXMETHYLPHENIDATE HCL 47614385439 No Longer Active Checo Conklin MD Active ZOFRAN ODT 4 MG ORAL TABLET DISINTEGRATING 1 po q6hr PRN Nausea ONDANSETRON 67497154381 No Longer Active Checo Conklin MD Active PERCOCET 5-325 MG ORAL TABLET 1 tablet by mouth every 6 hour s as needed OXYCODONE-ACETAMINOPHEN 80737894763 No Longer Active Checo Conklin MD Active PYRIDIUM 200 MG ORAL TABLET take 1 tab po TID prn urinary pain. PHENAZOPYRIDINE HCL 53185841492 No Longer Active Checo Joshua Active FLUCONAZOLE 150 MG ORAL TABLET take 1 tab po qday once FLUCONAZOLE 46805425930 No Longer Active Dangelo Rangel MD Acti ve CIPRO 500 MG ORAL TABLET 1 tablet by mouth twice daily CIPROFLOXACIN HCL 26662905862 No Longer Active Dangeol Rangel MD Active PYRIDIUM 200 MG ORAL TABLET take 1 tab po TID prn urinary pain. PYRIDIUM 200 MG ORAL TABLET 2545083 PHENAZOPYRIDINE HCL Inactive PERCOCET 5-325 MG ORAL TABLET 1 tablet by mouth every 6 hour s as needed PERCOCET 5-325 MG ORAL TABLET 6668924 OXYCODONE-ACETAMINOPHEN Inactive ZOFRAN ODT 4 MG ORAL [...] for pain PERCOCET 10-325 MG ORAL TABLET 7327745 OXYCODONE-ACETAMI NOPHEN Inactive FOCALIN XR 10 MG ORAL CAPSULE EXTENDED RELEASE 24 HOUR 1 po q a. m. FOCALIN XR 10 MG ORAL CAPSULE EXTENDED RELEASE 24 HOUR DEXMETHYLPHENIDATE HCL Inactive CEFDINIR 300 MG ORAL CAPSULE 1 po bid CEFDINI R 300 MG ORAL CAPSULE 534870 CEFDINIR Inactive ANTIPYRINE-BENZOCAINE 5.4-1.4 % OTIC SOLUTION [...] 30/07/08 TRAZODONE HCL 100 MG ORAL TABLET 155525 TRAZODONE HCL Inactive CONCERTA 18 MG ORAL [...] cough HYDROCODONE-ACETAMINOPHEN 5-325 MG ORAL TABLET 8 39362 HYDROCODONE-ACETAMINOPHEN Inactive PHENAZOPYRIDINE HCL 200 MG ORAL TABLET take 1 tab po TID for bladder pain PHENAZOPYRIDINE HCL 200 MG ORAL TABLET 8052237 PHENAZOPYRIDINE HCL Inactive HYDROCODONE-ACETAMINOPHEN 5-325 MG ORAL TABLET 1 po q 6hr PRN Pa in HYDROCODONE-ACETAMINOPHEN 5-325 MG ORAL TABLET 497112 HYDROCODONE-ACETAMINOPHEN Inactive CELEXA 20 MG ORAL TABLET 1 tablet by mouth daily 09/26 CELEXA 20 MG ORAL TABLET 888254 CITALOPRAM HYDROBROMIDE Inactive REGLAN 10 MG ORAL TABLET 1 po TID PRN Nausea 3 REGLAN 10 MG ORAL TABLET 460707 METOCLOPRAMIDE HCL Inactive LAMISIL 250 MG ORAL TABLET 1 po qd L AMISIL 250 MG ORAL TABLET 186505 TERBINAFINE HCL Inactive DICLOFENAC SODIUM 75 MG ORAL TABLET DELAYED RELEASE 1 tablet by mouth twice daily PRN Knee pain DICLOFENAC SODIUM 75 MG ORAL TABLET DELAYED RELEASE 228629 DICLOFENAC SODIUM Inactive METOCLOPRAMIDE HCL 10 MG ORAL TABLET take one PO tid PRN nausea METOCLOPRAMIDE HCL 10 MG ORAL TABLET 096550 METOCLOPRAM ZACH HCL Inactive TERBINAFINE HCL 250 MG ORAL TABLET take one table PO one time da moises TERBINAFINE HCL 250 MG ORAL TABLET 293915 TERBINAFINE H CL Inactive BUPROPION HCL ER [...] SICKNESS 25 M G ORAL TABLET CHEWABLE 540941 MECLIZINE HCL Inactive SUMATRIPTAN SUCCINATE 100 MG ORAL TABLET Take one PRN for migran e SUMATRIPTAN SUCCINATE 100 MG ORAL TABLET 032256 SUMATRIPTAN SUCCINATE Inactive COMPRO 25 MG RECTAL SUPPOSITORY insert or apply one garza ppository rectally as directed every 12 hours as needed for nausea COMPRO 25 MG RECTAL SUPPOSITORY 822776 PROCHLORPERAZINE Inactive ONDANSETRON 8 MG ORAL TABLET DISINTEGRATING place one tablet on tongue and allow to dissolve every 6 hours as needed for vomitting ONDANSETRON 8 MG ORAL TABLET DISINTEGRATING 082269 ONDANSETRON Inactive HYDROCODONE-ACETAMINOPHEN 5-325 MG ORAL TABLET 0.5 to 1 tab by mouth every 6 hours as needed HYDROCODONE-ACETAMIN OPHEN 5-325 MG ORAL TABLET 930614 HYDROCODONE-ACETAMINOPHEN Inactive BACTRIM DS 800-160 MG ORAL TABLET 1 tab by mouth twice daily 201 11/23/03 BACTRIM DS 800-160 MG ORAL TABLET 593850 TRIMETHOPRIM-SULFAMETHOXAZOLE Inactive DIFLUCAN 150 MG ORAL TABLET 1 tablet by mouth if neede d, hold until symptoms start DIFLUCAN 150 MG ORAL TABLET 437493 FLUCONAZ OLE Inactive IBUPROFEN 800 MG ORAL TABLET 1 tab every 8 hours with food 03/20 IBUPROFEN 800 MG ORAL TABLET 854951 IBUPROFEN [place] ctive HYDROCODONE-ACETAMINOPHEN 5-325 MG ORAL TABLET 1 tab b y mouth every 6 hours as needed HYDROCODONE-ACETAMINOPHEN 5-325 MG ORAL TABLET 478604 HYDROCODONE-ACETAMINOPHEN Inactive BACTROBAN 2 % EXTERNAL CREAM Apply to affected area BID for up to 10 days BACTROBAN 2 % EXTERNAL CREAM MUPIROCIN CA LCIUM Inactive MAGNESIUM CITRATE 1.745 GM/30ML ORAL SOLUTION 150ml po BID P RN Constipation MAGNESIUM CITRATE 1.745 GM/30ML ORAL SOLUTION 10 50222 MAGNESIUM CITRATE Inactive DIFLUCAN 150 MG ORAL TABLET 1 tablet by mouth qod 2015 DIFLUCAN 150 MG ORAL TABLET 399721 FLUCONAZOLE Inactive BACTRIM DS 800-160 MG ORAL TABLET 1 tab by mouth twice daily 201 12/19/26 BACTRIM DS 800-160 MG ORAL TABLET 345188 TRIMETHOPRIM-SULFAMETHOXAZOLE Inactive CLARITIN 10 MG ORAL TABLET 1 tablet by mouth daily as needed for allergies CLARITIN 10 MG ORAL TABLET 217990 LORATADINE I nactive FLUTICASONE PROPIONATE 50 MCG/ACT NASAL SUSPENSION 2 s prays/nostril qd PRN Congestion/Allergies FLUTICASONE PROPION ATE 50 MCG/ACT NASAL SUSPENSION 7109278 FLUTICASONE PROPIONATE Inactive MIRALAX ORAL POWDER 8.5 to 17g po qd PRN Constipation MIRALAX ORAL POWDER 550457 POLYETHYLENE GLYCOL 3350 Inactive IBUPROFEN 800 MG ORAL TABLET 1 tab every 8 hours as needed for p ain IBUPROFEN 800 MG ORAL TABLET 596006 IBUPROFEN [place] ctive HYDROCHLOROTHIAZIDE 12.5 MG ORAL CAPSULE 1 po qd PRN Edema 01/10 HYDROCHLOROTHIAZIDE 12.5 MG ORAL CAPSULE 093018 HYDROCH LOROTHIAZIDE Inactive KLOR-CON 10 10 MEQ ORAL TABLET EXTENDED RELEASE 1 daily with furosemide KLOR-CON 10 10 MEQ ORAL TABLET EXTENDED RELEASE POTASSIUM CHLORIDE Inactive FUROSEMIDE 20 MG ORAL TABLET 1 daily for swelling 2018 FUROSEMIDE 20 MG ORAL TABLET 303728 FUROSEMIDE Inactive SIMVASTATIN 20 MG ORAL TABLET 1 po qd SIMVASTATIN 20 MG ORAL TABLET 176841 SIMVASTATIN Inactive FOCALIN XR 10 MG ORAL CAPSULE EXTENDED RELEASE 24 HOUR 1 po q a. m. FOCALIN XR 10 MG ORAL CAPSULE EXTENDED RELEASE 24 HOUR DEXMETHYLPHENIDATE HCL Inactive PAROXETINE HCL 40 MG ORAL TABLET 1 po qd PAROXETINE HCL 40 MG ORAL TABLET 5003020 PAROXETINE HCL Inactive XANAX 0.5 MG ORAL TABLET 1 po BID PRN anxiety XANAX 0.5 MG ORAL TABLET 036861 ALPRAZOLAM Inactive AMBIEN 5 MG ORAL TABLET 1 po qHS PRN Insomnia AMBIEN 5 MG ORAL TABLET 988372 ZOLPIDEM TARTRATE Inactive PROZAC 10 MG ORAL CAPSULE 1 PO Daily NE OZAC 10 MG ORAL CAPSULE 600303 FLUOXETINE HCL Inactive CIPRO 500 MG ORAL TABLET 1 tablet by mouth twice daily CIPRO 500 MG ORAL TABLET 452585 CIPROFLOXACIN HCL Inactive FLUCONAZOLE 150 MG ORAL TABLET take 1 tab po qday once FLUCONAZOLE 150 MG ORAL TABLET 791224 FLUCONAZOLE Inactive ZITHROMAX Z-KARTHIK 250 MG ORAL TABLET 2 today, then 1 daily for 4 d ays ZITHROMAX Z-KARTHIK 250 MG ORAL TABLET 554862 AZITHROMYCIN Inactive PREDNISONE 20 MG ORAL TABLET 2 tabs daily for 3 days, 1 tab daily for 3 days, 1/2 tab daily for 2 days PREDNISONE 20 MG ORAL T ABLET 633628 PREDNISONE Inactive AZITHROMYCIN 250 MG ORAL TABLET 2 po qd x 1 day, then 1 po q d x 4 days AZITHROMYCIN 250 MG ORAL TABLET 972931 AZITHROMY SPARKLE Inactive PREDNISONE 20 MG ORAL TABLET 2 tabs daily for 3 days, 1 tab daily for 3 days, 1/2 tab daily for 2 days PREDNISONE 20 MG ORAL TABLET 968450 PREDNISONE Inactive CEFDINIR 300 MG ORAL CAPSULE by mouth twice a day 2013 CEFDINIR 300 MG ORAL CAPSULE 039896 CEFDINIR Inactive TRIAMCINOLONE ACETONIDE 0.1 % EXTERNAL OINTMENT Apply to affected areas TID for up to 2 weeks TRIAMCINOLONE ACETON ZACH 0.1 % EXTERNAL OINTMENT 5167672 TRIAMCINOLONE ACETONIDE Inactive PREDNISONE 20 MG ORAL TABLET 2 tabs daily for 3 days, 1 tab daily for 3 days, 1/2 tab daily for 2 days PREDNISONE 20 MG ORAL T ABLET 743101 PREDNISONE Inactive BACTRIM DS 800-160 MG ORAL TABLET 1 po BID x 7 days 29/04/10 BACTRIM DS 800-160 MG ORAL TABLET 265220 SULFAMETHOXAZOLE-TRIMETHOP RIM Inactive CIPRO 500 MG ORAL TABLET 1 tablet by mouth twice daily CIPRO 500 MG ORAL TABLET 838977 CIPROFLOXACIN HCL Inactive AZITHROMYCIN 250 MG ORAL TABLET 2 po qd x 1 day, then 1 po q d x 4 days AZITHROMYCIN 250 MG ORAL TABLET 620106 AZITHROMY SPARKLE Inactive FLAGYL 500 MG ORAL TABLET 1 tablet by mouth bid 04/13 FLAGYL 500 MG ORAL TABLET 767306 METRONIDAZOLE Inactive AZITHROMYCIN 250 MG ORAL TABLET 2 po qd x 1 day, then 1 po q d x 4 days AZITHROMYCIN 250 MG ORAL TABLET 883961 AZITHROMY SPARKLE Inactive AMOXICILLIN 500 MG ORAL CAPSULE 2 po BID x 10 days 201 01/15/27 AMOXICILLIN 500 MG ORAL CAPSULE 316834 AMOXICILLIN Inactive AMOXICILLIN 500 MG ORAL CAPSULE 2 po BID x 14 days for H. Pylori AMOXICILLIN 500 MG ORAL CAPSULE 822300 AMOXICILLIN Inactive CLARITHROMYCIN 500 MG ORAL TABLET 1 tab po BID x 14 days CLARITHROMYCIN 500 MG ORAL TABLET 866940 CLARITHROMYCIN Inacti ve FLAGYL 500 MG ORAL TABLET 1 tablet by mouth bid 08/29 FLAGYL 500 MG ORAL TABLET 376899 METRONIDAZOLE Inactive PROTONIX 40 MG ORAL TABLET DELAYED RELEASE 1 pill by m outh daily, for acid reflux PROTONIX 40 MG ORAL TABLET DELAYED RELEAS E 579128 PANTOPRAZOLE SODIUM Inactive Immunizations Vaccine Administration Date [...] Panel - Chemistry sodium, serum 142 mmol/L [phone]/07/22 carbon dioxide, venous blood 26.3 mmol/L 21.0-32 [...] 0.80 mg/dL 0.00-1.00 cholesterol, serum 172 mg/dL 772-184 3601/07/22 triglyceride, serum, fasting 222 mg/dL 30-200 HDL [...] 5.0-8.5 Encounters Code Encounter Date Provider Facility CPT-83759 Level 3 Est. Patient 09:11:53 CDT [facility] Level 3 Est. Patient 16:46:51 CDT Thomas reynolds DO [facility] CPT-37237 [id number] Vst-Est Level III 14:40:49 CDT Paul Hamlin MD [facility] CPT-97748 Level 4 Est. Patient 11:08:43 CDT Checo Conklin MD [facility]-42970 [id number] Vst-Est Level III 09:37:41 CDT Dangelo Rangel MD [facility] CPT-38503 Level 4 Est. Patient 08:57:51 GRADUATE CIVIL ENGINEER Checo Conklin MD [facility] CPT-72318 Level 3 Est. Patient 11:24:55 GRADUATE CIVIL ENGINEER Efren almendarez [facility] [place] CPT-81048 Level 3 Est. Patient 13:05:44 CDT Paul Hamlin MD [facility] CPT-26624 Level 3 Est. Patient 11:29:55 CDT Checo Conklin MD [facility] CPT-05358 Level 4 Est. Patient 11:08:12 GRADUATE CIVIL ENGINEER Checo Conklin MD [facility] CPT-73744 Level 4 Est. Patient 16:06:48 GRADUATE CIVIL ENGINEER Checo Conklin MD [facility] CPT-94082 Level 3 Est. Patient 09:11:49 CDT Efren almendarez [facility]-64579 Level 2 Est. Patient 19:53:27 CDT Tanner hill MD [facility] CPT-56849 Level 3 Est. Patient 09:15:34 CDT Efren almendarez [facility] [place] CPT-83094 Level 3 Est. Patient 11:28:51 GRADUATE CIVIL ENGINEER Efren almendarez [facility] [place] CPT-61735 Level 4 Est. Patient 13:55:46 GRADUATE CIVIL ENGINEER Checo Conklin MD [facility] CPT-60753 Level 4 Est. Patient 17:10:53 CDT Checo Conklin MD [facility] CPT-50552 Level 3 Est. Patient 15:56:22 CDT Checo Conklin MD [facility] CPT-08592 Level 3 Est. Patient 15:29:07 CDT Checo Conklin MD [facility] CPT-00190 Level 3 Est. Patient 14:38:41 CDT Checo Conklin MD [facility] CPT-86515 Level 3 Est. Patient 15:22:03 GRADUATE CIVIL ENGINEER Thomas reynolds DO [facility] CPT-10290 Level 3 Est. Patient 13:34:17 GRADUATE CIVIL ENGINEER Checo Conklin MD [facility] CPT-07623 Level 3 Est. Patient 12:29:32 CDT Dangelo arroyo MD [facility] CPT-89939 Level 3 Est. Patient 16:53:02 CDT Checo Conklin MD [facility] CPT-82319 Level 3 Est. Patient 16:37:13 CDT Checo Conklin MD [facility] CPT-40625 Level 3 Est. Patient 16:16:59 CDT Paul Hamlin MD [facility] CPT-38683 Level 3 Est. Patient 14:20:13 CDT Dangelo arroyo MD [facility] CPT-82889 Level 4 Est. Patient 11:29:33 CDT Checo Conklin MD [facility] CPT-54178 Level 3 Est. Patient 17:08:31 CDT Checo Conklin MD [facility] CPT-72727 Level 3 Est. 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 Patient 09:26:08 GRADUATE CIVIL ENGINEER Checo Conklin MD [facility] CPT-48216 Level 3 Est. Patient 11:37:10 CDT [facility] [facility] CPT-31279 Level 4 Est. Patient 14:07:38 CDT Checo Conklin MD [facility] CPT-40321 Level 3 Est. Patient 09:54:41 CDT Checo Conklin MD [facility] CPT-60874 Level 3 Est. Patient 11:10:54 CDT Paul Hamlin MD [facility] CPT-50753 Level 3 Est. Patient 14:16:56 [employer] Checo Conklin MD [facility] CPT-63147 Level 3 Est. Patient 11:04:11 [employer]INEER Checo Conklin MD [facility] CPT-85484 Level 3 Est. Patient 17:09:26 CDT Dangelo arroyo MD [facility] CPT-60742 Level 3 Est. Patient 16:54:37 CDT Checo Conklin MD [facility] Procedures Code Procedure Name Date Entry Date Standard Desc ription CPT-78226 Abx/Therapy Injection 09:52:15 CDT CPT-86652 Abx/Therapy Injection 18:17:48 CDT CPT-J2550 Phenergan 25 mg (Promethazine) 16:48:23 CDT CPT-J1885 Toradol 60 mg 16:48:23 CDT CPT-99037 Wrist, right, comp 3V - XRAY USE ONLY 09:24:31 CDT CPT-57899 Abd compl w upright - XRAY USE ONLY 1 1:36:54 [employer] CPT-87101 UA w micro - LAB USE ONLY 17:06:46 CDT 2015 CPT-25122 [facility] Qual - LAB USE ONLY 17:06:46 CDT 05/06 CPT-28110 CMP - LAB USE ONLY 17:06:46 CDT CPT-38320 CBC with Diff - LAB USE ONLY 17:06:45 CDT 2 CPT-87613 Venipuncture Draw Fee 17:06:45 CDT CPT-LR Lesion Removal 19:53:27 CDT CPT-OV Office Visit 11:31:28 CDT CPT-44283 Tubersol 09:39:29 CDT CPT-J2550 Phenergan 25 mg (Promethazine) 13:59:02 [employer]ATE [employer] CPT-J1885 Toradol 60 mg (Ketorolac) 13:59:02 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
--- OUTSIDE RECORDS SUMMARY | 2019-09-29 01:12 | XMS REPORT | Clinical Summary ---
Author Author Admin, Bethany Ayala [facility] Address Unknown Phone Unavailable Allergies, Adverse Reactions, [...] Index 27.0-27.9 Adult Resolved 2018 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 RETAIL WORKER-C Body Mass Index 27.0-27.9, adult Body Mass Index 26.0-26.9 Adult Refinement 2017 Thomas Marks DO Body Mass Index 26.0-26.9, adult BMI 25-25.9 Active 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 RETAIL WORKER-C Body Mass Index 26.0-26.9, adult Wellness examination, routine medical V70.0 Active 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 APRN-C Routine general medical examination at a health care facility Hypertension 401.9 Active 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 APRN-C Unspecified essential hypertension Screening for cardiovascular condition V81.2 Active 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 APRN-C Screening for other and unspecified card iovascular conditions FH BREAST CANCER ICD-V16.3 Inactive Checo Joshua FH [...] 2 weeks if needed CITALOPRAM HYDRO BROMIDE 63533099980 Active Radha Sherman RETAIL WORKER-C Active PROZAC 10 MG ORAL CAPSULE 1 PO Daily FLUOXETINE HCL 98938255126 No Longer Active Radha Sherman RETAIL WORKER-C Active VYVANSE 30 MG ORAL CAPSULE 1 PO daily LISDEXAMF ETAMINE DIMESYLATE 85417004114 Active Radha Sherman RETAIL WORKER-C Active XANAX 0.5 MG ORAL TABLET 1 tablet PO BID; PRN A LPRAZOLAM 50559027098 Active Radha Sherman RETAIL WORKER-C Active SIMVASTATIN 20 MG ORAL TABLET 1 tablet PO daily SI MVASTATIN 32946028254 Active Radha Sherman RETAIL WORKER-C Active IBUPROFEN 800 MG ORAL TABLET 1 tablet PO q8hr PRN IBUPROFEN 57183694464 Active 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 APRN-C Active AMBIEN 5 MG ORAL TABLET 1 tablet PO once daily; PRN ZOLPIDEM TARTRATE 37642554156 Active Rahda Whitaker APRN-C Active ALBUTEROL SULFATE HFA 108 (90 BASE) MCG/ACT INHALATION AEROSOL SOLUTION 2 puffs, INH, q4hr PRN ALBUTEROL SULFATE 80600448245 Active 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 A PRN-C Active AMBIEN 5 MG ORAL TABLET 1 po qHS PRN Insomnia ZOLPIDEM TARTRATE 77642363434 No Longer Active 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 APRN-C Active XANAX 0.5 MG ORAL TABLET 1 po BID PRN anxiety A LPRAZOLAM 01556482490 No Longer Active 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 APRN-C Active PAROXETINE HCL 40 MG ORAL TABLET 1 po qd PAR OXETINE HCL 64993916384 No Longer Active 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 APRN-C Active FOCALIN XR 10 MG ORAL CAPSULE EXTENDED RELEASE 24 HOUR 1 po q a. m. DEXMETHYLPHENIDATE HCL 66640665250 No Longer Active Radha Low APRN-C Active SIMVASTATIN 20 MG ORAL TABLET 1 po qd SIMVAS TATIN 28934930415 No Longer Active 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 APRN-C Active FUROSEMIDE 20 MG ORAL TABLET 1 daily for swelling 2018 FUROSEMIDE 85693419645 No Longer Active 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 APRN-C Active KLOR-CON 10 10 MEQ ORAL TABLET EXTENDED RELEASE 1 daily with furosemide POTASSIUM CHLORIDE 71333712055 No Longer Active 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 APRN-C Active HYDROCHLOROTHIAZIDE 12.5 MG ORAL CAPSULE 1 po qd PRN Edema 01/10 HYDROCHLOROTHIAZIDE 13933165519 No Longer Active Paul Hamlin MD Active IBUPROFEN 800 MG ORAL TABLET 1 tab every 8 hours as needed for p ain IBUPROFEN 64613118045 No Longer Active Paul Hamlin MD Active MIRALAX ORAL POWDER 8.5 to 17g po qd PRN Constipation POLYETHYLENE GLYCOL 3350 02604521269 No Longer Active Checo Conklin MD Active PROTONIX 40 MG ORAL TABLET DELAYED RELEASE 1 pill by m kaycee daily, for acid reflux PANTOPRAZOLE SODIUM 95156327543 No Longer Activ e Corry Méndez LPN Active FLAGYL 500 MG ORAL TABLET 1 tablet by mouth bid 08/29 METRONIDAZOLE 90736656529 No Longer Active Corry Méndez LPN Active CLARITHROMYCIN 500 MG ORAL TABLET 1 tab po BID x 14 days CLARITHROMYCIN 63463681402 No Longer Active Corry Méndez LPN Active AMOXICILLIN 500 MG ORAL CAPSULE 2 po BID x 14 days for H. Pylori AMOXICILLIN 56228507799 No Longer Active Corry Méndez LPN Active FLUTICASONE PROPIONATE 50 MCG/ACT NASAL SUSPENSION 2 s prays/nostril qd PRN Congestion/Allergies FLUTICASONE PROPIONATE 1187795049 9 No Longer Active Checo Conklin MD Active AMOXICILLIN 500 MG ORAL CAPSULE 2 po BID x 10 days 201 01/15/27 AMOXICILLIN 88377927264 No Longer Active Checo Conklin MD Activ e CLARITIN 10 MG ORAL TABLET 1 tablet by mouth daily as needed for allergies LORATADINE 47340252856 No Longer Active Checo Ortiz MD Active BACTRIM DS 800-160 MG ORAL TABLET 1 tab by mouth twice daily 201 12/19/26 TRIMETHOPRIM-SULFAMETHOXAZOLE 33801823261 No Longer Active Ragini Carrillo MD Active DIFLUCAN 150 MG ORAL TABLET 1 tablet by mouth qod 2015 FLUCONAZOLE 23100956109 No Longer Active Efren Medel APRN Act mike AZITHROMYCIN 250 MG ORAL TABLET 2 po qd x 1 day, then 1 po q d x 4 days AZITHROMYCIN 36859474706 No Longer Active Efren flores APRN Active FLAGYL 500 MG ORAL TABLET 1 tablet by mouth bid 04/13 METRONIDAZOLE 64283243007 No Longer Active Checo Conklin MD Acti ve MAGNESIUM CITRATE 1.745 GM/30ML ORAL SOLUTION 150ml po BID P RN Constipation MAGNESIUM CITRATE 20992963684 No Longer Active Checo Conklin MD Active BACTROBAN 2 % EXTERNAL CREAM Apply to affected area BID for up to 10 days MUPIROCIN CALCIUM 58908020569 No Longer Active Checo Conklin MD Active HYDROCODONE-ACETAMINOPHEN 5-325 MG ORAL TABLET 1 tab b y mouth every 6 hours as needed HYDROCODONE-ACETAMINOPHEN 20942594501 No Longer Active Checo Conklin MD Active IBUPROFEN 800 MG ORAL TABLET 1 tab every 8 hours with food 03/20 IBUPROFEN 75750402718 No Longer Active Checo Conklin MD Active DIFLUCAN 150 MG ORAL TABLET 1 tablet by mouth if neede d, hold until symptoms start FLUCONAZOLE 31800723832 No Longer Active Checo Conklin MD Active BACTRIM DS 800-160 MG ORAL TABLET 1 tab by mouth twice daily 201 11/23/03 TRIMETHOPRIM-SULFAMETHOXAZOLE 96202997357 No Longer Active K imberly Whittley, REFINERY PIPELINE OPERATOR Active HYDROCODONE-ACETAMINOPHEN 5-325 MG ORAL TABLET 0.5 to 1 tab by mouth every 6 hours as needed HYDROCODONE-ACETAMINOPHEN 15925243636 No Longer Active Checo Conklin MD Active ONDANSETRON 8 MG ORAL TABLET DISINTEGRATING place one tablet on tongue and allow to dissolve every 6 hours as needed for vomitting ONDANSETRON 84837606533 No Longer Active Checo Conklin MD Activ e COMPRO 25 MG RECTAL SUPPOSITORY insert or apply one garza ppository rectally as directed every 12 hours as needed for nausea PROCHLORPERAZINE 52545871883 No Longer Active Checo Conklin MD A ctive SUMATRIPTAN SUCCINATE 100 MG ORAL TABLET Take one PRN for migran e SUMATRIPTAN SUCCINATE 88363172850 No Longer Active Checo Conklin MD Active TRAVEL SICKNESS 25 MG ORAL TABLET CHEWABLE chew and sw allow one tablet every 6 hours as needed MECLIZINE HCL 69012267524 No Longer A ctive Checo Conklin MD Active BUPROPION HCL ER (SR) 100 MG ORAL TABLET EXTENDED RELE ASE 12 HOUR take one tablet by mouth one time daily for one week then take 1 two times daily BUPROPION HCL 87292599151 No Longer Active Checo gallagher MD Active TERBINAFINE HCL 250 MG ORAL TABLET take one table PO one time da moises TERBINAFINE HCL 51508551344 No Longer Active Checo Conklin MD Active METOCLOPRAMIDE HCL 10 MG ORAL TABLET take one PO tid PRN nausea METOCLOPRAMIDE HCL 02586308411 No Longer Active Checo Conklin MD Active DICLOFENAC SODIUM 75 MG ORAL TABLET DELAYED RELEASE 1 tablet by mouth twice daily PRN Knee pain DICLOFENAC SODIUM 52153350115 No Longer Active Checo Conklin MD Active LAMISIL 250 MG ORAL TABLET 1 po qd TERBINAFI NE HCL 01510088166 No Longer Active Checo Conklin MD Active REGLAN 10 MG ORAL TABLET 1 po TID PRN Nausea 3 METOCLOPRAMIDE HCL 52931096977 No Longer Active Checo Conklin MD Active CELEXA 20 MG ORAL TABLET 1 tablet by mouth daily 09/26 CITALOPRAM HYDROBROMIDE 06485624221 No Longer Active Checo Conklin MD Active AZITHROMYCIN 250 MG ORAL TABLET 2 po qd x 1 day, then 1 po q d x 4 days AZITHROMYCIN 87421357403 No Longer Active Checo Ortiz MD Active HYDROCODONE-ACETAMINOPHEN 5-325 MG ORAL TABLET 1 po q 6hr PRN Pa in HYDROCODONE-ACETAMINOPHEN 38978093094 No Longer Active Lenora Conklin MD Active PHENAZOPYRIDINE HCL 200 MG ORAL TABLET take 1 tab po TID for bladder pain PHENAZOPYRIDINE HCL 23910031752 No Longer Active Joe Conklin MD Active CIPRO 500 MG ORAL TABLET 1 tablet by mouth twice daily CIPROFLOXACIN HCL 14759367349 No Longer Active Dangelo Rangel MD Active HYDROCODONE-ACETAMINOPHEN 5-325 MG ORAL TABLET 1/2 to 1 po q 4 hours prn cough HYDROCODONE-ACETAMINOPHEN 54289856277 No Longer Activ e Dangelo Rangel MD Active BACTRIM DS 800-160 MG ORAL TABLET 1 po BID x 7 days 29/04/10 SULFAMETHOXAZOLE-TRIMETHOPRIM 61002971326 No Longer Active Checo Conklin MD Active PREDNISONE 20 MG ORAL TABLET 2 tabs daily for 3 days, 1 tab daily for 3 days, 1/2 tab daily for 2 days PREDNISONE 68098664267 No Longer Active Checo Conklin MD Active TRIAMCINOLONE ACETONIDE 0.1 % EXTERNAL OINTMENT Apply to affected areas TID for up to 2 weeks TRIAMCINOLONE ACETONIDE 98339274931 No Longer Active Checo Conklin MD Active CEFDINIR 300 MG ORAL CAPSULE by mouth twice a day 2013 CEFDINIR 49507575285 No Longer Active Dangelo Rangel MD Acti ve BUPROPION HCL ER (SMOKING DET) 150 MG ORAL TABLET EXTE NDED RELEASE 12 HOUR 1 a day for 1 week then 1 twice a day BUPROPION HCL (SMOKING DETER) 97572948598 No Longer Active Checo Conklin MD Active CHANTIX STARTING MONTH KARTHIK 0.5 MG X 11 & 1 MG X 42 ORA L TABLET 0.5mg daily for 3 days, then 0.5mg BID for 4 days, then 1mg BID VARENICLINE TARTRATE 57243777953 No Longer Active Checo Conklin MD Activ e CONCERTA 18 MG ORAL TABLET EXTENDED RELEASE 1 po q a.m. METHYLPHENIDATE HCL 80055471192 No Longer Active Checo Conklin MD Active TRAZODONE HCL 100 MG ORAL TABLET 0.5 to 1 po qHS PRN Insomnia 20 30/07/08 TRAZODONE HCL 94227800046 No Longer Active Checo Conklin MD Active FIORICET 325-50-40 MG TAB 1 tablet by mouth four times daily as needed [id number] 62447163772 No Longer Active Checo Conklin MD Active PHENERGAN CREAM* 25mg applied to wrist q6hr PRN Nausea PHENERGAN CREAM* No Longer Active Checo Conklin MD A ctive FLONASE 50 MCG/ACT NASAL SUSPENSION 1 spray each nostril am and hs FLUTICASONE PROPIONATE 84120019116 No Longer Active Checo Conklin MD Active ANTIPYRINE-BENZOCAINE 5.4-1.4 % OTIC SOLUTION 1-2 drops in affec yohannes ear BENZOCAINE-ANTIPYRINE 79458939220 No Longer Active Checo Conklin MD Active CEFDINIR 300 MG ORAL CAPSULE 1 po bid CEFDINIR 66489295276 No Longer Active Checo Conklin MD Active PREDNISONE 20 MG ORAL TABLET 2 tabs daily for 3 days, 1 tab daily for 3 days, 1/2 tab daily for 2 days PREDNISONE 40238511564 No Longer Active Checo Conklin MD Active AZITHROMYCIN 250 MG ORAL TABLET 2 po qd x 1 day, then 1 po q d x 4 days AZITHROMYCIN 90508432094 No Longer Active Checo Ortiz MD Active PREDNISONE 20 MG ORAL TABLET 2 tabs daily for 3 days, 1 tab daily for 3 days, 1/2 tab daily for 2 days PREDNISONE 77491493608 No Longer Active Checo Conklin MD Active ZITHROMAX Z-KARTHIK 250 MG ORAL TABLET 2 today, then 1 daily for 4 d ays AZITHROMYCIN 25214303768 No Longer Active Paul Hamlin MD Active FOCALIN XR 10 MG ORAL CAPSULE EXTENDED RELEASE 24 HOUR 1 po q a. m. DEXMETHYLPHENIDATE HCL 41450850160 No Longer Active Paul Hamlin MD Active PERCOCET 10-325 MG ORAL TABLET 1 tablet every 6 hours as needed for pain OXYCODONE-ACETAMINOPHEN 46393540149 No Longer Active Paul Hamlin MD Active LORTAB 5-500 MG ORAL TABLET 1/2 to 1 tablet by mouth e very 4 hours as needed for pain HYDROCODONE-ACETAMINOPHEN 52329980242 No Longer Active Checo Conklin MD Active FOCALIN XR 15 MG ORAL CAPSULE EXTENDED RELEASE 24 HOUR 1 po q a. m. DEXMETHYLPHENIDATE HCL 35300230329 No Longer Active Checo Conklin MD Active ZOFRAN ODT 4 MG ORAL TABLET DISINTEGRATING 1 po q6hr PRN Nausea ONDANSETRON 46275376414 No Longer Active Checo Conklin MD Active PERCOCET 5-325 MG ORAL TABLET 1 tablet by mouth every 6 hour s as needed OXYCODONE-ACETAMINOPHEN 27739787335 No Longer Active Checo Conklin MD Active PYRIDIUM 200 MG ORAL TABLET take 1 tab po TID prn urinary pain. PHENAZOPYRIDINE HCL 40061639890 No Longer Active Checo Joshua Active FLUCONAZOLE 150 MG ORAL TABLET take 1 tab po qday once FLUCONAZOLE 31577506088 No Longer Active Dangelo Rangel MD Acti ve CIPRO 500 MG ORAL TABLET 1 tablet by mouth twice daily CIPROFLOXACIN HCL 80227370313 No Longer Active Dangelo Rangel MD Active PYRIDIUM 200 MG ORAL TABLET take 1 tab po TID prn urinary pain. PYRIDIUM 200 MG ORAL TABLET 9059354 PHENAZOPYRIDINE HCL Inactive PERCOCET 5-325 MG ORAL TABLET 1 tablet by mouth every 6 hour s as needed PERCOCET 5-325 MG ORAL TABLET 3207100 OXYCODONE-ACETAMINOPHEN Inactive ZOFRAN ODT 4 MG ORAL [...] for pain PERCOCET 10-325 MG ORAL TABLET 2062483 OXYCODONE-ACETAMI NOPHEN Inactive FOCALIN XR 10 MG ORAL CAPSULE EXTENDED RELEASE 24 HOUR 1 po q a. m. FOCALIN XR 10 MG ORAL CAPSULE EXTENDED RELEASE 24 HOUR DEXMETHYLPHENIDATE HCL Inactive CEFDINIR 300 MG ORAL CAPSULE 1 po bid CEFDINI R 300 MG ORAL CAPSULE 541912 CEFDINIR Inactive ANTIPYRINE-BENZOCAINE 5.4-1.4 % OTIC SOLUTION [...] 30/07/08 TRAZODONE HCL 100 MG ORAL TABLET 886765 TRAZODONE HCL Inactive CONCERTA 18 MG ORAL [...] cough HYDROCODONE-ACETAMINOPHEN 5-325 MG ORAL TABLET 8 49956 HYDROCODONE-ACETAMINOPHEN Inactive PHENAZOPYRIDINE HCL 200 MG ORAL TABLET take 1 tab po TID for bladder pain PHENAZOPYRIDINE HCL 200 MG ORAL TABLET 0002116 PHENAZOPYRIDINE HCL Inactive HYDROCODONE-ACETAMINOPHEN 5-325 MG ORAL TABLET 1 po q 6hr PRN Pa in HYDROCODONE-ACETAMINOPHEN 5-325 MG ORAL TABLET 738227 HYDROCODONE-ACETAMINOPHEN Inactive CELEXA 20 MG ORAL TABLET 1 tablet by mouth daily 09/26 CELEXA 20 MG ORAL TABLET 855680 CITALOPRAM HYDROBROMIDE Inactive REGLAN 10 MG ORAL TABLET 1 po TID PRN Nausea 3 REGLAN 10 MG ORAL TABLET 171243 METOCLOPRAMIDE HCL Inactive LAMISIL 250 MG ORAL TABLET 1 po qd L AMISIL 250 MG ORAL TABLET 266200 TERBINAFINE HCL Inactive DICLOFENAC SODIUM 75 MG ORAL TABLET DELAYED RELEASE 1 tablet by mouth twice daily PRN Knee pain DICLOFENAC SODIUM 75 MG ORAL TABLET DELAYED RELEASE 737371 DICLOFENAC SODIUM Inactive METOCLOPRAMIDE HCL 10 MG ORAL TABLET take one PO tid PRN nausea METOCLOPRAMIDE HCL 10 MG ORAL TABLET 712310 METOCLOPRAM ZACH HCL Inactive TERBINAFINE HCL 250 MG ORAL TABLET take one table PO one time da moises TERBINAFINE HCL 250 MG ORAL TABLET 308552 TERBINAFINE H CL Inactive BUPROPION HCL ER [...] SICKNESS 25 M G ORAL TABLET CHEWABLE 081287 MECLIZINE HCL Inactive SUMATRIPTAN SUCCINATE 100 MG ORAL TABLET Take one PRN for migran e SUMATRIPTAN SUCCINATE 100 MG ORAL TABLET 979514 SUMATRIPTAN SUCCINATE Inactive COMPRO 25 MG RECTAL SUPPOSITORY insert or apply one garza ppository rectally as directed every 12 hours as needed for nausea COMPRO 25 MG RECTAL SUPPOSITORY 412006 PROCHLORPERAZINE Inactive ONDANSETRON 8 MG ORAL TABLET DISINTEGRATING place one tablet on tongue and allow to dissolve every 6 hours as needed for vomitting ONDANSETRON 8 MG ORAL TABLET DISINTEGRATING 920529 ONDANSETRON Inactive HYDROCODONE-ACETAMINOPHEN 5-325 MG ORAL TABLET 0.5 to 1 tab by mouth every 6 hours as needed HYDROCODONE-ACETAMIN OPHEN 5-325 MG ORAL TABLET 295863 HYDROCODONE-ACETAMINOPHEN Inactive BACTRIM DS 800-160 MG ORAL TABLET 1 tab by mouth twice daily 201 11/23/03 BACTRIM DS 800-160 MG ORAL TABLET 757817 TRIMETHOPRIM-SULFAMETHOXAZOLE Inactive DIFLUCAN 150 MG ORAL TABLET 1 tablet by mouth if neede d, hold until symptoms start DIFLUCAN 150 MG ORAL TABLET 868882 FLUCONAZ OLE Inactive IBUPROFEN 800 MG ORAL TABLET 1 tab every 8 hours with food 03/20 IBUPROFEN 800 MG ORAL TABLET 562750 IBUPROFEN Krupa ctive HYDROCODONE-ACETAMINOPHEN 5-325 MG ORAL TABLET 1 tab b y mouth every 6 hours as needed HYDROCODONE-ACETAMINOPHEN 5-325 MG ORAL TABLET 305778 HYDROCODONE-ACETAMINOPHEN Inactive BACTROBAN 2 % EXTERNAL CREAM Apply to affected area BID for up to 10 days BACTROBAN 2 % EXTERNAL CREAM MUPIROCIN CA LCIUM Inactive MAGNESIUM CITRATE 1.745 GM/30ML ORAL SOLUTION 150ml po BID P RN Constipation MAGNESIUM CITRATE 1.745 GM/30ML ORAL SOLUTION 10 16201 MAGNESIUM CITRATE Inactive DIFLUCAN 150 MG ORAL TABLET 1 tablet by mouth qod 2015 DIFLUCAN 150 MG ORAL TABLET 576527 FLUCONAZOLE Inactive BACTRIM DS 800-160 MG ORAL TABLET 1 tab by mouth twice daily 201 12/19/26 BACTRIM DS 800-160 MG ORAL TABLET 445186 TRIMETHOPRIM-SULFAMETHOXAZOLE Inactive CLARITIN 10 MG ORAL TABLET 1 tablet by mouth daily as needed for allergies CLARITIN 10 MG ORAL TABLET 284285 LORATADINE I nactive FLUTICASONE PROPIONATE 50 MCG/ACT NASAL SUSPENSION 2 s prays/nostril qd PRN Congestion/Allergies FLUTICASONE PROPION ATE 50 MCG/ACT NASAL SUSPENSION 7999967 FLUTICASONE PROPIONATE Inactive MIRALAX ORAL POWDER 8.5 to 17g po qd PRN Constipation MIRALAX ORAL POWDER 393685 POLYETHYLENE GLYCOL 3350 Inactive IBUPROFEN 800 MG ORAL TABLET 1 tab every 8 hours as needed for p ain IBUPROFEN 800 MG ORAL TABLET 717775 IBUPROFEN Krupa ctive HYDROCHLOROTHIAZIDE 12.5 MG ORAL CAPSULE 1 po qd PRN Edema 01/10 HYDROCHLOROTHIAZIDE 12.5 MG ORAL CAPSULE 643310 HYDROCH LOROTHIAZIDE Inactive KLOR-CON 10 10 MEQ ORAL TABLET EXTENDED RELEASE 1 daily with furosemide KLOR-CON 10 10 MEQ ORAL TABLET EXTENDED RELEASE POTASSIUM CHLORIDE Inactive FUROSEMIDE 20 MG ORAL TABLET 1 daily for swelling 2018 FUROSEMIDE 20 MG ORAL TABLET 349226 FUROSEMIDE Inactive SIMVASTATIN 20 MG ORAL TABLET 1 po qd SIMVASTATIN 20 MG ORAL TABLET 769539 SIMVASTATIN Inactive FOCALIN XR 10 MG ORAL CAPSULE EXTENDED RELEASE 24 HOUR 1 po q a. m. FOCALIN XR 10 MG ORAL CAPSULE EXTENDED RELEASE 24 HOUR DEXMETHYLPHENIDATE HCL Inactive PAROXETINE HCL 40 MG ORAL TABLET 1 po qd PAROXETINE HCL 40 MG ORAL TABLET 5382427 PAROXETINE HCL Inactive XANAX 0.5 MG ORAL TABLET 1 po BID PRN anxiety XANAX 0.5 MG ORAL TABLET 067178 ALPRAZOLAM Inactive AMBIEN 5 MG ORAL TABLET 1 po qHS PRN Insomnia AMBIEN 5 MG ORAL TABLET 716299 ZOLPIDEM TARTRATE Inactive PROZAC 10 MG ORAL CAPSULE 1 PO Daily MT OZAC 10 MG ORAL CAPSULE 860546 FLUOXETINE HCL Inactive CIPRO 500 MG ORAL TABLET 1 tablet by mouth twice daily CIPRO 500 MG ORAL TABLET 039652 CIPROFLOXACIN HCL Inactive FLUCONAZOLE 150 MG ORAL TABLET take 1 tab po qday once FLUCONAZOLE 150 MG ORAL TABLET 574763 FLUCONAZOLE Inactive ZITHROMAX Z-KARTHIK 250 MG ORAL TABLET 2 today, then 1 daily for 4 d ays ZITHROMAX Z-KARTHIK 250 MG ORAL TABLET 470041 AZITHROMYCIN Inactive PREDNISONE 20 MG ORAL TABLET 2 tabs daily for 3 days, 1 tab daily for 3 days, 1/2 tab daily for 2 days PREDNISONE 20 MG ORAL T ABLET 094942 PREDNISONE Inactive AZITHROMYCIN 250 MG ORAL TABLET 2 po qd x 1 day, then 1 po q d x 4 days AZITHROMYCIN 250 MG ORAL TABLET 010066 AZITHROMY SPARKLE Inactive PREDNISONE 20 MG ORAL TABLET 2 tabs daily for 3 days, 1 tab daily for 3 days, 1/2 tab daily for 2 days PREDNISONE 20 MG ORAL TABLET 815176 PREDNISONE Inactive CEFDINIR 300 MG ORAL CAPSULE by mouth twice a day 2013 CEFDINIR 300 MG ORAL CAPSULE 289741 CEFDINIR Inactive TRIAMCINOLONE ACETONIDE 0.1 % EXTERNAL OINTMENT Apply to affected areas TID for up to 2 weeks TRIAMCINOLONE ACETON ZACH 0.1 % EXTERNAL OINTMENT 5298299 TRIAMCINOLONE ACETONIDE Inactive PREDNISONE 20 MG ORAL TABLET 2 tabs daily for 3 days, 1 tab daily for 3 days, 1/2 tab daily for 2 days PREDNISONE 20 MG ORAL T ABLET 315565 PREDNISONE Inactive BACTRIM DS 800-160 MG ORAL TABLET 1 po BID x 7 days 29/04/10 BACTRIM DS 800-160 MG ORAL TABLET 024713 SULFAMETHOXAZOLE-TRIMETHOP RIM Inactive CIPRO 500 MG ORAL TABLET 1 tablet by mouth twice daily CIPRO 500 MG ORAL TABLET 529050 CIPROFLOXACIN HCL Inactive AZITHROMYCIN 250 MG ORAL TABLET 2 po qd x 1 day, then 1 po q d x 4 days AZITHROMYCIN 250 MG ORAL TABLET 820820 AZITHROMY SPARKLE Inactive FLAGYL 500 MG ORAL TABLET 1 tablet by mouth bid 04/13 FLAGYL 500 MG ORAL TABLET 856872 METRONIDAZOLE Inactive AZITHROMYCIN 250 MG ORAL TABLET 2 po qd x 1 day, then 1 po q d x 4 days AZITHROMYCIN 250 MG ORAL TABLET 141304 AZITHROMY SPARKLE Inactive AMOXICILLIN 500 MG ORAL CAPSULE 2 po BID x 10 days 201 01/15/27 AMOXICILLIN 500 MG ORAL CAPSULE 697486 AMOXICILLIN Inactive AMOXICILLIN 500 MG ORAL CAPSULE 2 po BID x 14 days for H. Pylori AMOXICILLIN 500 MG ORAL CAPSULE 080014 AMOXICILLIN Inactive CLARITHROMYCIN 500 MG ORAL TABLET 1 tab po BID x 14 days CLARITHROMYCIN 500 MG ORAL TABLET 797772 CLARITHROMYCIN Inacti ve FLAGYL 500 MG ORAL TABLET 1 tablet by mouth bid 08/29 FLAGYL 500 MG ORAL TABLET 491014 METRONIDAZOLE Inactive PROTONIX 40 MG ORAL TABLET DELAYED RELEASE 1 pill by m outh daily, for acid reflux PROTONIX 40 MG ORAL TABLET DELAYED RELEAS E 684980 PANTOPRAZOLE SODIUM Inactive Immunizations Vaccine Administration Date [...] Panel - Chemistry sodium, serum 142 mmol/L 686-964 5270/07/22 carbon dioxide, venous blood 26.3 mmol/L 21.0-32 [...] 0.80 mg/dL 0.00-1.00 cholesterol, serum 172 mg/dL 667-074 8157/07/22 triglyceride, serum, fasting 222 mg/dL 30-200 HDL [...] Lab Alkaline phosphatase 88 50-136 Lab Report: UADIP W/MICRO, AUTO - Chemis try RBC, urine, dipstick Trace-lysed Negative protein, total urine random Negative mg/dL Negative Lab Report: UADIP W/MICRO, AUTO - Urinal ysis glucose, urine, semiquantitative Negative Neg ative ketones, urine, by test strip Negative Negati ve bilirubin, urine Negative Negative urine color Yellow Colorless;Lightyellow;St raw;Yellow appearance, urine Clear Clear specific gravity, urine 1.015 1.000-1.030 pH, urine, semiquantitative 6.5 5.0-8.5 urobilinogen, urine, semiquantitative (dipstick) 0.2 E .U./dL Normal leukocyte esterase, urine, by dipstick Negative Negative nitrite, urine, semiquantitative Negative Neg ative Encounters Code Encounter Date Provider Facility CPT-91412 Level 3 Est. Patient 09:11:53 CDT Radha Dic k RETAIL WORKER-C [facility] CPT-74132 Level 3 Est. Patient 16:46:51 CDT Thomas reynolds DO [facility] CPT-28988 [id number] Vst-Est Level III 14:40:49 CDT Paul Hamlin MD [facility] CPT-81859 Level 4 Est. Patient 11:08:43 CDT Checo Conklin MD [facility] CPT-14410 [id number] Vst-Est Level III 09:37:41 CDT Dangelo Rangel MD [facility] CPT-65071 Level 4 Est. Patient 08:57:51 COMPLIANCE ADVISOR Checo Conklin MD [facility] CPT-59810 Level 3 Est. Patient 11:24:55 COMPLIANCE ADVISOR Efren almendarez [facility] CPT-76602 Level 3 Est. Patient 13:05:44 CDT Paul Hamlin MD [facility] CPT-39721 Level 3 Est. Patient 11:29:55 CDT Checo Conklin MD [facility] CPT-38435 Level 4 Est. Patient 11:08:12 COMPLIANCE ADVISOR Checo Conklin MD [facility] CPT-45564 Level 4 Est. Patient 16:06:48 COMPLIANCE ADVISOR Checo Conklin MD [facility] CPT-44732 Level 3 Est. Patient 09:11:49 CDT Efren almendarez [facility] CPT-33321 Level 2 Est. Patient 19:53:27 CDT Tanner hill MD [facility] CPT-94594 Level 3 Est. Patient 09:15:34 CDT Efren almendarez [facility] CPT-23827 Level 3 Est. Patient 11:28:51 COMPLIANCE ADVISOR Efren almendarez [facility] CPT-07877 Level 4 Est. Patient 13:55:46 COMPLIANCE ADVISOR Checo Conklin MD [facility] CPT-46489 Level 4 Est. Patient 17:10:53 CDT Checo Conklin MD [facility] CPT-19397 Level 3 Est. Patient 15:56:22 CDT Checo Conklin MD [facility] CPT-94716 Level 3 Est. Patient 15:29:07 CDT Checo Conklin MD [facility] CPT-98885 Level 3 Est. Patient 14:38:41 CDT Checo Conklin MD [facility] CPT-86938 Level 3 Est. Patient 15:22:03 COMPLIANCE ADVISOR Thomas reynolds DO [facility] CPT-28174 Level 3 Est. Patient 13:34:17 COMPLIANCE ADVISOR Checo Conklin MD [facility] CPT-25551 Level 3 Est. Patient 12:29:32 CDT Dangelo arroyo MD [facility] CPT-71326 Level 3 Est. Patient 16:53:02 CDT Checo Conklin MD [facility] CPT-42119 Level 3 Est. Patient 16:37:13 CDT Checo Conklin MD [facility] CPT-26743 Level 3 Est. Patient 16:16:59 CDT Paul Hamlin MD [facility] CPT-34428 Level 3 Est. Patient 14:20:13 CDT Dangelo arroyo MD [facility] CPT-62333 Level 4 Est. Patient 11:29:33 CDT Checo Conklin MD [facility] CPT-41472 Level 3 Est. Patient 17:08:31 CDT Checo Conklin MD [facility] CPT-01368 Level 3 Est. Patient 16:50:42 COMPLIANCE ADVISOR Checo Conklin MD [facility] CPT-92570 Level 4 Est. Patient 09:26:08 COMPLIANCE ADVISOR Checo Conklin MD [facility] CPT-56932 Level 3 Est. Patient 11:37:10 CDT Checo Conklin MD [facility] CPT-96775 Level 4 Est. Patient 14:07:38 CDT Checo Conklin MD [facility] CPT-26395 Level 3 Est. Patient 09:54:41 CDT Checo Conklin MD [facility] CPT-10556 Level 3 Est. Patient 11:10:54 CDT Paul Hamlin MD [facility] CPT-04638 Level 3 Est. Patient 14:16:56 COMPLIANCE ADVISOR Checo Conklin MD [facility] CPT-21051 Level 3 Est. Patient 11:04:11 COMPLIANCE ADVISOR Checo Conklin MD [facility] CPT-40006 Level 3 Est. Patient 17:09:26 CDT Dangelo arroyo MD [facility] CPT-95500 Level 3 Est. Patient 16:54:37 CDT Checo Conklin MD [facility] Procedures Code Procedure Name Date Entry Date Standard Desc ription CPT-54429 Abx/Therapy Injection 09:52:15 CDT CPT-51591 Abx/Therapy Injection 18:17:48 CDT CPT-J2550 Phenergan 25 mg (Promethazine) 16:48:23 CDT CPT-J1885 Toradol 60 mg 16:48:23 CDT CPT-36644 Wrist, right, comp 3V - XRAY USE ONLY 09:24:31 CDT CPT-51733 Abd compl w upright - XRAY USE ONLY 1 1:36:54 COMPLIANCE ADVISOR CPT-03161 UA w micro - LAB USE ONLY 17:06:46 CDT 2015 CPT-35387 [facility] Qual - LAB USE ONLY 17:06:46 CDT 05/06 CPT-19975 CMP - LAB USE ONLY 17:06:46 CDT CPT-30274 CBC with Diff - LAB USE ONLY 17:06:45 CDT 2 CPT-46007 Venipuncture Draw Fee 17:06:45 CDT CPT-LR Lesion Removal 19:53:27 CDT CPT-OV Office Visit 11:31:28 CDT CPT-88570 Tubersol 09:39:29 CDT CPT-J2550 Phenergan 25 mg (Promethazine) 13:59:02 COMPLIANCE ADVISOR CPT-J1885 Toradol 60 mg (Ketorolac) 13:59:02 COMPLIANCE ADVISOR 2012
--- OUTSIDE RECORDS SUMMARY | 2019-09-29 01:13 | XMS REPORT | Clinical Summary ---
Author Author Admin, Bethany Gonzales Organization [employer] Address Unknown Phone Unavailable Allergies, Adverse Reactions, [...] Index 27.0-27.9 Adult Resolved 2018 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 COMPUTER SOFTWARE ENGINEER-C Body Mass Index 27.0-27.9, adult Body Mass Index 26.0-26.9 Adult Refinement 2017 Thomas Marks DO Body Mass Index 26.0-26.9, adult BMI 25-25.9 Active 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 COMPUTER SOFTWARE ENGINEER-C Body Mass Index 26.0-26.9, adult Wellness examination, routine medical V70.0 Active 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 COMPUTER SOFTWARE ENGINEER-C Routine general medical examination at a health care facility Hypertension 401.9 Active 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 COMPUTER SOFTWARE ENGINEER-C Unspecified essential hypertension Screening for cardiovascular condition [...] Checo Ortiz MD Repeated falls ICD-781.99 Inactive Cehco ngo MD Abdominal pain, generalized ICD-789.07 Inactive Checo Conklin MD Nausea ICD-787.02 Inactive Checo Conklin MD 201 02/15/12 Body Mass Index 25.0-25.9 Adult Inac miriam Hamlin MD Body Mass Index 27.0-27.9 Adult Jeremias Marks MA Medication List Medication Instructions Start Date Stop Date Generic Name NDC Status Provider Patient Instruction PROZAC 10 MG ORAL CAPSULE 1 PO Daily FLUOXETINE H CL 07653123317 Active Radha Sherman COMPUTER SOFTWARE ENGINEER-C Active VYVANSE 30 MG ORAL CAPSULE 1 PO daily LISDEXAMF ETAMINE DIMESYLATE 25509190439 Active Radha Sherman COMPUTER SOFTWARE ENGINEER-C Active XANAX 0.5 MG ORAL TABLET 1 tablet PO BID; PRN A LPRAZOLAM 23192923686 Active Radha Sherman COMPUTER SOFTWARE ENGINEER-C Active SIMVASTATIN 20 MG ORAL TABLET 1 tablet PO daily SI MVASTATIN 45791864692 Active Radha Sherman COMPUTER SOFTWARE ENGINEER-C Active IBUPROFEN 800 MG ORAL TABLET 1 tablet PO q8hr PRN IBUPROFEN 51846844598 Active Radha Sherman COMPUTER SOFTWARE ENGINEER-C Active AMBIEN 5 MG ORAL TABLET 1 tablet PO once daily; PRN ZOLPIDEM TARTRATE 10684801823 Active Radha Sherman COMPUTER SOFTWARE ENGINEER-C Active ALBUTEROL SULFATE HFA 108 (90 BASE) MCG/ACT INHALATION AEROSOL SOLUTION 2 puffs, INH, q4hr PRN ALBUTEROL SULFATE 73468543514 Active 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 A REFUGION-C Active AMBIEN 5 MG ORAL TABLET 1 po qHS PRN Insomnia ZOLPIDEM TARTRATE 79675501255 No Longer Active 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 APRN-C Active XANAX 0.5 MG ORAL TABLET 1 po BID PRN anxiety A LPRAZOLAM 87834990132 No Longer Active Radha CHEWC Active PAROXETINE HCL 40 MG ORAL TABLET 1 po qd PAR OXETINE HCL 56785263860 No Longer Active Radha VACA Active FOCALIN XR 10 MG ORAL CAPSULE EXTENDED RELEASE 24 HOUR 1 po q a. m. DEXMETHYLPHENIDATE HCL 51883740967 No Longer Active Radha Low APRN-C Active SIMVASTATIN 20 MG ORAL TABLET 1 po qd SIMVAS TATIN 26279360116 No Longer Active Radha CHEWC Active FUROSEMIDE 20 MG ORAL TABLET 1 daily for swelling 2018 FUROSEMIDE 45907609971 No Longer Active Radha VACA Active KLOR-CON 10 10 MEQ ORAL TABLET EXTENDED RELEASE 1 daily with furosemide POTASSIUM CHLORIDE 36375181385 No Longer Active Radha VACA Active HYDROCHLOROTHIAZIDE 12.5 MG ORAL CAPSULE 1 po qd PRN Edema 01/10 HYDROCHLOROTHIAZIDE 91937766025 No Longer Active Paul Hamlin MD Active IBUPROFEN 800 MG ORAL TABLET 1 tab every 8 hours as needed for p ain IBUPROFEN 36448351499 No Longer Active Paul Hamlin MD Active MIRALAX ORAL POWDER 8.5 to 17g po qd PRN Constipation POLYETHYLENE GLYCOL 3350 33960446180 No Longer Active Checo Conklin MD Active PROTONIX 40 MG ORAL TABLET DELAYED RELEASE 1 pill by m outh daily, for acid reflux PANTOPRAZOLE SODIUM 61220741975 No Longer Activ e Corry Méndez LPN Active FLAGYL 500 MG ORAL TABLET 1 tablet by mouth bid 08/29 METRONIDAZOLE 97587953745 No Longer Active Corry Méndez LPN Active CLARITHROMYCIN 500 MG ORAL TABLET 1 tab po BID x 14 days CLARITHROMYCIN 78263465478 No Longer Active Corry Méndez LPN Active AMOXICILLIN 500 MG ORAL CAPSULE 2 po BID x 14 days for H. Pylori AMOXICILLIN 40598915208 No Longer Active Corry Méndez LPN Active FLUTICASONE PROPIONATE 50 MCG/ACT NASAL SUSPENSION 2 s prays/nostril qd PRN Congestion/Allergies FLUTICASONE PROPIONATE 6732749684 9 No Longer Active Checo Conklin MD Active AMOXICILLIN 500 MG ORAL CAPSULE 2 po BID x 10 days 201 01/15/27 AMOXICILLIN 54009823535 No Longer Active Checo Conklin MD Activ e CLARITIN 10 MG ORAL TABLET 1 tablet by mouth daily as needed for allergies LORATADINE 32074795409 No Longer Active Checo Ortiz MD Active BACTRIM DS 800-160 MG ORAL TABLET 1 tab by mouth twice daily 201 12/19/26 TRIMETHOPRIM-SULFAMETHOXAZOLE 05711530237 No Longer Active Ragini Carrillo MD Active DIFLUCAN 150 MG ORAL TABLET 1 tablet by mouth qod 2015 FLUCONAZOLE 18973042206 No Longer Active Efren Medel APRN Act mike AZITHROMYCIN 250 MG ORAL TABLET 2 po qd x 1 day, then 1 po q d x 4 days AZITHROMYCIN 20034733180 No Longer Active Efren flores APRN Active FLAGYL 500 MG ORAL TABLET 1 tablet by mouth bid 04/13 METRONIDAZOLE 31334293807 No Longer Active Checo Conklin MD Acti ve MAGNESIUM CITRATE 1.745 GM/30ML ORAL SOLUTION 150ml po BID P RN Constipation MAGNESIUM CITRATE 88539283652 No Longer Active Checo Conklin MD Active BACTROBAN 2 % EXTERNAL CREAM Apply to affected area BID for up to 10 days MUPIROCIN CALCIUM 10579962152 No Longer Active Checo Conklin MD Active HYDROCODONE-ACETAMINOPHEN 5-325 MG ORAL TABLET 1 tab b y mouth every 6 hours as needed HYDROCODONE-ACETAMINOPHEN 63470274421 No Longer Active Checo Conklin MD Active IBUPROFEN 800 MG ORAL TABLET 1 tab every 8 hours with food 03/20 IBUPROFEN 96656698993 No Longer Active Checo Conklin MD Active DIFLUCAN 150 MG ORAL TABLET 1 tablet by mouth if neede d, hold until symptoms start FLUCONAZOLE 46044649513 No Longer Active Checo Conklin MD Active BACTRIM DS 800-160 MG ORAL TABLET 1 tab by mouth twice daily 201 11/23/03 TRIMETHOPRIM-SULFAMETHOXAZOLE 50080568957 No Longer Active K bernice Méndez LPN Active HYDROCODONE-ACETAMINOPHEN 5-325 MG ORAL TABLET 0.5 to 1 tab by mouth every 6 hours as needed HYDROCODONE-ACETAMINOPHEN 79009601743 No Longer Active Checo Conklin MD Active ONDANSETRON 8 MG ORAL TABLET DISINTEGRATING place one tablet on tongue and allow to dissolve every 6 hours as needed for vomitting ONDANSETRON 99857008781 No Longer Active Checo Conklin MD Activ e COMPRO 25 MG RECTAL SUPPOSITORY insert or apply one garza ppository rectally as directed every 12 hours as needed for nausea PROCHLORPERAZINE 04905346986 No Longer Active Checo Conklin MD A ctive SUMATRIPTAN SUCCINATE 100 MG ORAL TABLET Take one PRN for migran e SUMATRIPTAN SUCCINATE 31792541833 No Longer Active Checo Conklin MD Active TRAVEL SICKNESS 25 MG ORAL TABLET CHEWABLE chew and sw allow one tablet every 6 hours as needed MECLIZINE HCL 03354172350 No Longer A ctive Checo Conklin MD Active BUPROPION HCL ER (SR) 100 MG ORAL TABLET EXTENDED RELE ASE 12 HOUR take one tablet by mouth one time daily for one week then take 1 two times daily BUPROPION HCL 02291469132 No Longer Active Checo gallagher MD Active TERBINAFINE HCL 250 MG ORAL TABLET take one table PO one time da moises TERBINAFINE HCL 56373399841 No Longer Active Checo Conklin MD Active METOCLOPRAMIDE HCL 10 MG ORAL TABLET take one PO tid PRN nausea METOCLOPRAMIDE HCL 37989834065 No Longer Active Checo Conklin MD Active DICLOFENAC SODIUM 75 MG ORAL TABLET DELAYED RELEASE 1 tablet by mouth twice daily PRN Knee pain DICLOFENAC SODIUM 58539702785 No Longer Active Checo Conklin MD Active LAMISIL 250 MG ORAL TABLET 1 po qd TERBINAFI NE HCL 21117480473 No Longer Active Checo Conklin MD Active REGLAN 10 MG ORAL TABLET 1 po TID PRN Nausea 3 METOCLOPRAMIDE HCL 13915186782 No Longer Active Checo Conklin MD Active CELEXA 20 MG ORAL TABLET 1 tablet by mouth daily 09/26 CITALOPRAM HYDROBROMIDE 01925399216 No Longer Active Checo Conklin MD Active AZITHROMYCIN 250 MG ORAL TABLET 2 po qd x 1 day, then 1 po q d x 4 days AZITHROMYCIN 00925360452 No Longer Active Checo Ortiz MD Active HYDROCODONE-ACETAMINOPHEN 5-325 MG ORAL TABLET 1 po q 6hr PRN Pa in HYDROCODONE-ACETAMINOPHEN 03823861683 No Longer Active Lenora Conklin MD Active PHENAZOPYRIDINE HCL 200 MG ORAL TABLET take 1 tab po TID for bladder pain PHENAZOPYRIDINE HCL 31655650825 No Longer Active Joe Conklin MD Active CIPRO 500 MG ORAL TABLET 1 tablet by mouth twice daily CIPROFLOXACIN HCL 66256547656 No Longer Active Dangelo Rangel MD Active HYDROCODONE-ACETAMINOPHEN 5-325 MG ORAL TABLET 1/2 to 1 po q 4 hours prn cough HYDROCODONE-ACETAMINOPHEN 86212677633 No Longer Activ e Dangelo Rangel MD Active BACTRIM DS 800-160 MG ORAL TABLET 1 po BID x 7 days 29/04/10 SULFAMETHOXAZOLE-TRIMETHOPRIM 68815817810 No Longer Active Checo Conklin MD Active PREDNISONE 20 MG ORAL TABLET 2 tabs daily for 3 days, 1 tab daily for 3 days, 1/2 tab daily for 2 days PREDNISONE 51760724810 No Longer Active Checo Conklin MD Active TRIAMCINOLONE ACETONIDE 0.1 % EXTERNAL OINTMENT Apply to affected areas TID for up to 2 weeks TRIAMCINOLONE ACETONIDE 23233055383 No Longer Active Checo Conklin MD Active CEFDINIR 300 MG ORAL CAPSULE by mouth twice a day 2013 CEFDINIR 04028595460 No Longer Active Dangelo Rangel MD Acti ve BUPROPION HCL ER (SMOKING DET) 150 MG ORAL TABLET EXTE NDED RELEASE 12 HOUR 1 a day for 1 week then 1 twice a day BUPROPION HCL (SMOKING DETER) 45738924316 No Longer Active Checo Conklin MD Active CHANTIX STARTING MONTH KARTHIK 0.5 MG X 11 & 1 MG X 42 ORA L TABLET 0.5mg daily for 3 days, then 0.5mg BID for 4 days, then 1mg BID VARENICLINE TARTRATE 42209026018 No Longer Active Checo Conklin MD Activ e CONCERTA 18 MG ORAL TABLET EXTENDED RELEASE 1 po q a.m. METHYLPHENIDATE HCL 35239598394 No Longer Active Checo Conklin MD Active TRAZODONE HCL 100 MG ORAL TABLET 0.5 to 1 po qHS PRN Insomnia 20 30/07/08 TRAZODONE HCL 00582078511 No Longer Active Checo Conklin MD Active FIORICET 325-50-40 MG TAB 1 tablet by mouth four times daily as needed [id number] 90619875374 No Longer Active Checo Conklin MD Active PHENERGAN CREAM* 25mg applied to wrist q6hr PRN Nausea PHENERGAN CREAM* No Longer Active Checo Conklin MD A ctive FLONASE 50 MCG/ACT NASAL SUSPENSION 1 spray each nostril am and hs FLUTICASONE PROPIONATE 50619572111 No Longer Active Checo Conklin MD Active ANTIPYRINE-BENZOCAINE 5.4-1.4 % OTIC SOLUTION 1-2 drops in affec yohannes ear BENZOCAINE-ANTIPYRINE 21026551591 No Longer Active Checo Conklin MD Active CEFDINIR 300 MG ORAL CAPSULE 1 po bid CEFDINIR 00912349972 No Longer Active Checo Conklin MD Active PREDNISONE 20 MG ORAL TABLET 2 tabs daily for 3 days, 1 tab daily for 3 days, 1/2 tab daily for 2 days PREDNISONE 48776720920 No Longer Active Checo Conklin MD Active AZITHROMYCIN 250 MG ORAL TABLET 2 po qd x 1 day, then 1 po q d x 4 days AZITHROMYCIN 32051748847 No Longer Active Checo Ortiz MD Active PREDNISONE 20 MG ORAL TABLET 2 tabs daily for 3 days, 1 tab daily for 3 days, 1/2 tab daily for 2 days PREDNISONE 99637057764 No Longer Active Checo Conklin MD Active ZITHROMAX Z-KARTHIK 250 MG ORAL TABLET 2 today, then 1 daily for 4 d ays AZITHROMYCIN 43726208030 No Longer Active Paul Hamlin MD Active FOCALIN XR 10 MG ORAL CAPSULE EXTENDED RELEASE 24 HOUR 1 po q a. m. DEXMETHYLPHENIDATE HCL 92434137748 No Longer Active Paul Hamlin MD Active PERCOCET 10-325 MG ORAL TABLET 1 tablet every 6 hours as needed for pain OXYCODONE-ACETAMINOPHEN 07294614494 No Longer Active Paul Hamlin MD Active LORTAB 5-500 MG ORAL TABLET 1/2 to 1 tablet by mouth e very 4 hours as needed for pain HYDROCODONE-ACETAMINOPHEN 90259207314 No Longer Active Checo Conklin MD Active FOCALIN XR 15 MG ORAL CAPSULE EXTENDED RELEASE 24 HOUR 1 po q a. m. DEXMETHYLPHENIDATE HCL 27492860484 No Longer Active Checo Conklin MD Active ZOFRAN ODT 4 MG ORAL TABLET DISINTEGRATING 1 po q6hr PRN Nausea ONDANSETRON 66916020592 No Longer Active Checo Conklin MD Active PERCOCET 5-325 MG ORAL TABLET 1 tablet by mouth every 6 hour s as needed OXYCODONE-ACETAMINOPHEN 94158751343 No Longer Active Checo Conklin MD Active PYRIDIUM 200 MG ORAL TABLET take 1 tab po TID prn urinary pain. PHENAZOPYRIDINE HCL 03307829081 No Longer Active Checo Joshua Active FLUCONAZOLE 150 MG ORAL TABLET take 1 tab po qday once FLUCONAZOLE 03248102093 No Longer Active Dangelo Rangel MD Acti ve CIPRO 500 MG ORAL TABLET 1 tablet by mouth twice daily CIPROFLOXACIN HCL 14759223832 No Longer Active Dangelo Rangel MD Active PHENERGAN CREAM* 25mg applied to wrist q6hr PRN Nausea PHENERGAN CREAM* Inactive AMBIEN 5 MG ORAL TABLET 1 po qHS PRN Insomnia AMBIEN 5 MG ORAL TABLET 284972 ZOLPIDEM TARTRATE Inactive AMOXICILLIN 500 MG ORAL CAPSULE 2 po BID x 10 days 201 01/15/27 AMOXICILLIN 500 MG ORAL CAPSULE 987003 AMOXICILLIN Inactive AMOXICILLIN 500 MG ORAL CAPSULE 2 po BID x 14 days for [facility]. Pyl[facility] AMOXICILLIN 500 MG ORAL CAPSULE 564743 AMOXICILLIN Inactive ANTIPYRINE-BENZOCAINE 5.4-1.4 % OTIC SOLUTION 1-2 drops in affec yohannes ear ANTIPYRINE-BENZOCAINE 5.4-1.4 % OTIC SOLUTION BENZOCAINE-ANTIPYRINE Inactive BACTRIM DS 800-160 MG ORAL TABLET 1 tab by mouth twice daily 201 11/23/03 BACTRIM DS 800-160 MG ORAL TABLET 19820918 TRIMETHOPRIM-SULFAMETHOXAZOLE Inactive BACTRIM DS 800-160 MG ORAL TABLET 1 po BID x 7 days 29/04/10 BACTRIM DS 800-160 MG ORAL TABLET 19820918 SULFAMETHOXAZOLE-TRIMETHOP RIM Inactive BACTRIM DS 800-160 MG ORAL TABLET 1 tab by mouth twice daily 201 12/19/26 BACTRIM DS 800-160 MG ORAL TABLET 19820918 TRIMETHOPRIM-SULFAMETHOXAZOLE Inactive CIPRO 500 MG ORAL TABLET 1 tablet by mouth twice daily CIPRO 500 MG ORAL TABLET 844673 CIPROFLOXACIN HCL Inactive CIPRO 500 MG ORAL TABLET 1 tablet by mouth twice daily CIPRO 500 MG ORAL TABLET 330457 CIPROFLOXACIN HCL Inactive CLARITIN 10 MG ORAL TABLET 1 tablet by mouth daily as needed for allergies CLARITIN 10 MG ORAL TABLET 943105 LORATADINE I nactive FIORICET 325-50-40 MG TAB 1 tablet by mouth four times daily as needed FIORICET 325-50-40 MG TAB ACETAMINOPHEN-C AFF-BUTALBITAL Inactive FLAGYL 500 MG ORAL TABLET 1 tablet by mouth bid 04/13 FLAGYL 500 MG ORAL TABLET 463421 METRONIDAZOLE Inactive FLAGYL 500 MG ORAL TABLET 1 tablet by mouth bid 08/29 FLAGYL 500 MG ORAL TABLET 677413 METRONIDAZOLE Inactive FUROSEMIDE 20 MG ORAL TABLET 1 daily for swelling 2018 FUROSEMIDE 20 MG ORAL TABLET 285153 FUROSEMIDE Inactive IBUPROFEN 800 MG ORAL TABLET 1 tab every 8 hours as needed for p ain IBUPROFEN 800 MG ORAL TABLET IBUPROFEN [place] ctive IBUPROFEN 800 MG ORAL TABLET 1 tab every 8 hours with food 03/20 IBUPROFEN 800 MG ORAL TABLET IBUPROFEN [place] ctive KLOR-CON 10 10 MEQ ORAL TABLET EXTENDED RELEASE 1 daily with furosemide KLOR-CON 10 10 MEQ ORAL TABLET EXTENDED RELEASE POTASSIUM CHLORIDE Inactive MAGNESIUM CITRATE 1.745 GM/30ML ORAL SOLUTION 150ml po BID P RN Constipation MAGNESIUM CITRATE 1.745 GM/30ML ORAL SOLUTION 10 01922 MAGNESIUM CITRATE Inactive METOCLOPRAMIDE HCL 10 MG ORAL TABLET take one PO tid PRN nausea METOCLOPRAMIDE HCL 10 MG ORAL TABLET 628459 METOCLOPRAM ZACH HCL Inactive PERCOCET 5-325 MG ORAL TABLET 1 tablet by mouth every 6 hour s as needed PERCOCET 5-325 MG ORAL TABLET 0780213 OXYCODONE-ACETAMINOPHEN Inactive PHENAZOPYRIDINE HCL 200 MG ORAL TABLET take 1 tab po TID for bladder pain PHENAZOPYRIDINE HCL 200 MG ORAL TABLET 1863880 PHENAZOPYRIDINE HCL Inactive PREDNISONE 20 MG ORAL TABLET 2 tabs daily for 3 days, 1 tab daily for 3 days, 1/2 tab daily for 2 days PREDNISONE 20 MG ORAL T ABLET 798436 PREDNISONE Inactive PREDNISONE 20 MG ORAL TABLET 2 tabs daily for 3 days, 1 tab daily for 3 days, 1/2 tab daily for 2 days PREDNISONE 20 MG ORAL T ABLET 047089 PREDNISONE Inactive PREDNISONE 20 MG ORAL TABLET 2 tabs daily for 3 days, 1 tab daily for 3 days, 1/2 tab daily for 2 days PREDNISONE 20 MG ORAL TABLET 995530 PREDNISONE Inactive PYRIDIUM 200 MG ORAL TABLET take 1 tab po TID prn urinary pain. PYRIDIUM 200 MG ORAL TABLET 3790610 PHENAZOPYRIDINE HCL Inactive REGLAN 10 MG ORAL TABLET 1 po TID PRN Nausea 3 REGLAN 10 MG ORAL TABLET 797332 METOCLOPRAMIDE HCL Inactive TRAZODONE HCL 100 MG ORAL TABLET 0.5 to 1 po qHS PRN Insomnia 20 30/07/08 TRAZODONE HCL 100 MG ORAL TABLET 419968 TRAZODONE HCL Inactive TRIAMCINOLONE ACETONIDE 0.1 % EXTERNAL OINTMENT Apply to affected areas TID for up to 2 weeks TRIAMCINOLONE ACETON ZACH 0.1 % EXTERNAL OINTMENT 7068083 TRIAMCINOLONE ACETONIDE Inactive XANAX 0.5 MG ORAL TABLET 1 po BID PRN anxiety XANAX 0.5 MG ORAL TABLET 280181 ALPRAZOLAM Inactive CLARITHROMYCIN 500 MG ORAL TABLET 1 tab po BID x 14 days CLARITHROMYCIN 500 MG ORAL TABLET 468858 CLARITHROMYCIN Inacti ve SIMVASTATIN 20 MG ORAL TABLET 1 po qd SIMVASTATIN 20 MG ORAL TABLET 372138 SIMVASTATIN Inactive LORTAB 5-500 MG ORAL TABLET 1/2 to 1 tablet by mouth e very 4 hours as needed for pain LORTAB 5-500 MG ORAL TABLET HYDROCODONE-ACETAMINOPHEN Inactive TERBINAFINE HCL 250 MG ORAL TABLET take one table PO one time da moises TERBINAFINE HCL 250 MG ORAL TABLET 116068 TERBINAFINE H CL Inactive SUMATRIPTAN SUCCINATE 100 MG ORAL TABLET Take one PRN for migran e SUMATRIPTAN SUCCINATE 100 MG ORAL TABLET 987638 SUMATRIPTAN SUCCINATE Inactive DIFLUCAN 150 MG ORAL TABLET 1 tablet by mouth if neede d, hold until symptoms start DIFLUCAN 150 MG ORAL TABLET 294026 FLUCONAZ OLE Inactive DIFLUCAN 150 MG ORAL TABLET 1 tablet by mouth qod 2015 DIFLUCAN 150 MG ORAL TABLET 750898 FLUCONAZOLE Inactive FLUCONAZOLE 150 MG ORAL TABLET take 1 tab po qday once FLUCONAZOLE 150 MG ORAL TABLET 622368 FLUCONAZOLE Inactive DICLOFENAC SODIUM 75 MG ORAL TABLET DELAYED RELEASE 1 tablet by mouth twice daily PRN Knee pain DICLOFENAC SODIUM 75 MG ORAL TABLET DELAYED RELEASE 234003 DICLOFENAC SODIUM Inactive PAROXETINE HCL 40 MG ORAL TABLET 1 po qd PAROXETINE HCL 40 MG ORAL TABLET 6830124 PAROXETINE HCL Inactive LAMISIL 250 MG ORAL TABLET 1 po qd L AMISIL 250 MG ORAL TABLET 241569 TERBINAFINE HCL Inactive HYDROCHLOROTHIAZIDE 12.5 MG ORAL CAPSULE 1 po qd PRN Edema 01/10 HYDROCHLOROTHIAZIDE 12.5 MG ORAL CAPSULE HYDROCH LOROTHIAZIDE Inactive AZITHROMYCIN 250 MG ORAL TABLET 2 po qd x 1 day, then 1 po q d x 4 days AZITHROMYCIN 250 MG ORAL TABLET 065278 AZITHROMY SPARKLE Inactive AZITHROMYCIN 250 MG ORAL TABLET 2 po qd x 1 day, then 1 po q d x 4 days AZITHROMYCIN 250 MG ORAL TABLET 183413 AZITHROMY SPARKLE Inactive AZITHROMYCIN 250 MG ORAL TABLET 2 po qd x 1 day, then 1 po q d x 4 days AZITHROMYCIN 250 MG ORAL TABLET 557558 AZITHROMY SPARKLE Inactive BACTROBAN 2 % EXTERNAL CREAM Apply to affected area BID for up to 10 days BACTROBAN 2 % EXTERNAL CREAM MUPIROCIN CA LCIUM Inactive CEFDINIR 300 MG ORAL CAPSULE by mouth twice a day 2013 CEFDINIR 300 MG ORAL CAPSULE 20021020 CEFDINIR Inactive CEFDINIR 300 MG ORAL CAPSULE 1 po bid CEFDINI R 300 MG ORAL CAPSULE 20021020 CEFDINIR Inactive CELEXA 20 MG ORAL TABLET 1 tablet by mouth daily 09/26 CELEXA 20 MG ORAL TABLET 20030114 CITALOPRAM HYDROBROMIDE Inactive ZOFRAN ODT 4 MG ORAL TABLET DISINTEGRATING 1 po q6hr PRN Nausea ZOFRAN ODT 4 MG ORAL TABLET DISINTEGRATING ONDAN SETRON Inactive MIRALAX ORAL POWDER 8.5 to 17g po qd PRN Constipation MIRALAX ORAL POWDER 279344 POLYETHYLENE GLYCOL 3350 Inactive ONDANSETRON 8 MG ORAL TABLET DISINTEGRATING place one tablet on tongue and allow to dissolve every 6 hours as needed for vomitting ONDANSETRON 8 MG ORAL TABLET DISINTEGRATING 188216 ONDANSETRON Inactive PROTONIX 40 MG ORAL TABLET DELAYED RELEASE 1 pill by m outh daily, for acid reflux PROTONIX 40 MG ORAL TABLET DELAYED RELEAS E 295269 PANTOPRAZOLE SODIUM Inactive CONCERTA 18 MG ORAL TABLET EXTENDED RELEASE 1 po q a.m. CONCERTA 18 MG ORAL TABLET EXTENDED RELEASE METHYLPHENIDATE HCL Inactive COMPRO 25 MG RECTAL SUPPOSITORY insert or apply one garza ppository rectally as directed every 12 hours as needed for nausea COMPRO 25 MG RECTAL SUPPOSITORY 442088 PROCHLORPERAZINE Inactive ZITHROMAX Z-KARTHIK 250 MG ORAL TABLET 2 today, then 1 daily for 4 d ays ZITHROMAX Z-KARTHIK 250 MG ORAL TABLET 418465 AZITHROMYCIN Inactive FLONASE 50 MCG/ACT NASAL SUSPENSION 1 spray each nostril am and hs FLONASE 50 MCG/ACT NASAL SUSPENSION FLUTICASONE PROPIONATE I nactive PERCOCET 10-325 MG ORAL TABLET 1 tablet every 6 hours as needed for pain PERCOCET 10-325 MG ORAL TABLET 3648857 OXYCODONE-ACETAMI NOPHEN Inactive HYDROCODONE-ACETAMINOPHEN 5-325 MG ORAL TABLET 1 po q 6hr PRN Pa in HYDROCODONE-ACETAMINOPHEN 5-325 MG ORAL TABLET 337942 HYDROCODONE-ACETAMINOPHEN Inactive HYDROCODONE-ACETAMINOPHEN 5-325 MG ORAL TABLET 0.5 to 1 tab by mouth every 6 hours as needed HYDROCODONE-ACETAMIN OPHEN 5-325 MG ORAL TABLET 287285 HYDROCODONE-ACETAMINOPHEN Inactive HYDROCODONE-ACETAMINOPHEN 5-325 MG ORAL TABLET 1 tab b y mouth every 6 hours as needed HYDROCODONE-ACETAMINOPHEN 5-325 MG ORAL TABLET 663478 HYDROCODONE-ACETAMINOPHEN Inactive HYDROCODONE-ACETAMINOPHEN 5-325 MG ORAL TABLET 1/2 to 1 po q 4 hours prn cough HYDROCODONE-ACETAMINOPHEN 5-325 MG ORAL TABLET 8 86749 HYDROCODONE-ACETAMINOPHEN Inactive BUPROPION HCL ER (SR) 100 MG ORAL TABLET EXTENDED RELE ASE 12 HOUR take one tablet by mouth one time daily for one week then take 1 two times daily BUPROPION HCL ER (SR) 100 MG ORAL TABLET EXTENDED RELEASE 12 HOUR BUPROPION HCL Inactive FOCALIN XR 10 MG ORAL CAPSULE EXTENDED RELEASE 24 HOUR 1 po q a. m. FOCALIN XR 10 MG ORAL CAPSULE EXTENDED RELEASE 24 HOUR DEXMETHYLPHENIDATE HCL Inactive FOCALIN XR 10 MG ORAL CAPSULE EXTENDED RELEASE 24 HOUR 1 po q a. m. FOCALIN XR 10 MG ORAL CAPSULE EXTENDED RELEASE 24 HOUR DEXMETHYLPHENIDATE HCL Inactive FLUTICASONE PROPIONATE 50 MCG/ACT NASAL SUSPENSION 2 s prays/nostril qd PRN Congestion/Allergies FLUTICASONE PROPION ATE 50 MCG/ACT NASAL SUSPENSION 5118607 FLUTICASONE PROPIONATE Inactive FOCALIN XR 15 MG ORAL CAPSULE EXTENDED RELEASE 24 HOUR 1 po q a. m. FOCALIN XR 15 MG ORAL CAPSULE EXTENDED RELEASE 24 HOUR DEXMETHYLPHENIDATE HCL Inactive TRAVEL SICKNESS 25 MG ORAL TABLET CHEWABLE chew and sw allow one tablet every 6 hours as needed TRAVEL SICKNESS 25 M G ORAL TABLET CHEWABLE 102182 MECLIZINE HCL Inactive CHANTIX STARTING MONTH KARTHIK 0.5 MG X 11 & 1 MG X 42 ORA L TABLET 0.5mg daily for 3 days, then 0.5mg BID for 4 days, then 1mg BID CHANTIX STARTING MONTH KARTHIK 0.5 MG X 11 & 1 MG X 42 ORAL TABLET VAREN ICLINE TARTRATE Inactive Immunizations Vaccine Administration Date Value Standard [...] Panel - Chemistry sodium, serum 142 mmol/L 244-098 5240/07/22 carbon dioxide, venous blood 26.3 mmol/L 21.0-32 [...] 0.80 mg/dL 0.00-1.00 cholesterol, serum 172 mg/dL 743-874 7868/07/22 triglyceride, serum, fasting 222 mg/dL 30-200 HDL [...] ative Encounters Code Encounter Date Provider Facility CPT-55666 Level 3 Est. Patient 09:11:53 CDT Radha VACA [facility] CPT-97969 Level 3 Est. Patient 16:46:51 CDT Thomas reynolds DO [facility] CPT-09172 [id number] Vst-Est Level III 14:40:49 CDT Paul Hamlin MD [facility] CPT-44217 Level 4 Est. Patient 11:08:43 CDT Checo Conklin MD [facility] CPT-12069 [id number] Vst-Est Level III 09:37:41 CDT Dangelo Rangel MD [facility] CPT-69075 Level 4 Est. Patient 08:57:51 PRECIPITATOR Checo Conklin MD [facility] CPT-69784 Level 3 Est. Patient 11:24:55 PRECIPITATOR Efren almendarez [facility] CPT-35372 Level 3 Est. Patient 13:05:44 CDT Paul Hamlin MD [facility] CPT-03738 Level 3 Est. Patient 11:29:55 CDT Checo Conklin MD [facility]-07018 Level 4 Est. Patient 11:08:12 PRECIPITATOR Checo Conklin MD [facility] CPT-66733 Level 4 Est. Patient 16:06:48 PRECIPITATOR Checo Conklin MD [facility] CPT-98138 Level 3 Est. Patient 09:11:49 CDT Efren almendarez [facility] CPT-20021 Level 2 Est. Patient 19:53:27 CDT Tanner hill MD [facility]-44320 Level 3 Est. Patient 09:15:34 CDT Efren almendarez [facility] CPT-08967 Level 3 Est. Patient 11:28:51 PRECIPITATOR Efren almendarez [facility] CPT-11115 Level 4 Est. Patient 13:55:46 PRECIPITATOR Checo Conklin MD [facility] CPT-85943 Level 4 Est. Patient 17:10:53 CDT Checo Conklin MD [facility] [facility] CPT-08279 Level 3 Est. Patient 15:56:22 CDT Checo Conklin MD [facility] CPT-33055 Level 3 Est. Patient 15:29:07 CDT Checo Conklin MD [facility] CPT-92613 Level 3 Est. Patient 14:38:41 CDT Checo Conklin MD [facility] CPT-06495 Level 3 Est. Patient 15:22:03 PRECIPITATOR Thomas reynolds DO [facility] CPT-43307 Level 3 Est. Patient 13:34:17 PRECIPITATOR Checo Conklin MD [facility] CPT-07890 Level 3 Est. Patient 12:29:32 CDT Dangelo arroyo MD [facility] CPT-63852 Level 3 Est. Patient 16:53:02 CDT Checo Conklin MD [facility] CPT-52496 Level 3 Est. Patient 16:37:13 CDT Checo Conklin MD [facility] CPT-44204 Level 3 Est. Patient 16:16:59 CDT Paul Hamlin MD [facility] CPT-34376 Level 3 Est. Patient 14:20:13 CDT Dangelo arroyo MD [facility] CPT-11271 Level 4 Est. Patient 11:29:33 CDT Checo Conklin MD [facility] CPT-59559 Level 3 Est. Patient 17:08:31 CDT Checo Conklin MD [facility] CPT-82743 Level 3 Est. Patient 16:50:42 PRECIPITATOR Checo Conklin MD [facility] CPT-31632 Level 4 Est. Patient 09:26:08 PRECIPITATOR Checo Conklin MD [facility] CPT-92251 Level 3 Est. Patient 11:37:10 CDT Checo Conklin MD [facility] CPT-71002 Level 4 Est. Patient 14:07:38 CDT Checo Conklin MD [facility] CPT-85368 Level 3 Est. Patient 09:54:41 CDT Checo Conklin MD [facility] CPT-32390 Level 3 Est. Patient 11:10:54 CDT Paul Hamlin MD [facility] CPT-30996 Level 3 Est. Patient 14:16:56 PRECIPITATOR Checo Conklin MD [facility] CPT-11617 Level 3 Est. Patient 11:04:11 PRECIPITATOR Checo Conklin MD [facility] CPT-74707 Level 3 Est. Patient 17:09:26 CDT Dangelo arroyo MD [facility] CPT-52017 Level 3 Est. Patient 16:54:37 CDT Checo Conklin MD [facility] Procedures Code Procedure Name Date Entry Date Standard Desc ription CPT-90440 Abx/Therapy Injection 09:52:15 CDT CPT-55635 Abx/Therapy Injection 18:17:48 CDT CPT-J2550 Phenergan 25 mg (Promethazine) 16:48:23 CDT CPT-J1885 Toradol 60 mg 16:48:23 CDT CPT-17743 Wrist, right, comp 3V - XRAY USE ONLY 09:24:31 CDT CPT-57222 Abd compl w upright - XRAY USE ONLY 1 1:36:54 PRECIPITATOR CPT-78851 UA w micro - LAB USE ONLY 17:06:46 CDT 2015 CPT-30641 [facility] Qual - LAB USE ONLY 17:06:46 CDT 05/06 CPT-28475 CMP - LAB USE ONLY 17:06:46 CDT CPT-97765 CBC with Diff - LAB USE ONLY 17:06:45 CDT 2 CPT-97227 Venipuncture Draw Fee 17:06:45 CDT CPT-LR Lesion Removal 19:53:27 CDT CPT-OV Office Visit 11:31:28 CDT CPT-17159 Tubersol 09:39:29 CDT CPT-J2550 Phenergan 25 mg (Promethazine) 13:59:02 PRECIPITATOR CPT-J1885 Toradol 60 mg (Ketorolac) 13:59:02 PRECIPITATOR 2012
--- OUTSIDE RECORDS SUMMARY | 2019-09-29 01:13 | XMS REPORT | Clinical Summary ---
Author Author Admin, Bethany Gonzales Organization [employer] Address Unknown Phone Unavailable Allergies, Adverse Reactions, [...] Index 27.0-27.9 Adult Resolved 2018 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 LAB RN-C Body Mass Index 27.0-27.9, adult Body Mass Index 26.0-26.9 Adult Refinement 2017 Thomas Marks DO Body Mass Index 26.0-26.9, adult BMI 25-25.9 Active Radah Whitaker LAB RN-C Body Mass Index 26.0-26.9, adult Wellness examination, routine medical V70.0 Active 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 LAB RN-C Routine general medical examination at a health care facility Hypertension 401.9 Active 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 LAB RN-C Unspecified essential hypertension Screening for cardiovascular condition [...] Checo richey MD Bacterial vaginosis ICD-616.10 Inactive eLnora Conklin MD Pharyngitis ICD-462 Inactive Checo Conklin MD Cough ICD-786.2 Inactive Checo Conklin MD 2016 Pedal edema ICD-782.3 Inactive Checo Conlkin MD NEOPLASM OF UNCERTAIN BEHAVIOR OF SKIN [...] 2 weeks if needed CITALOPRAM HYDRO BROMIDE 15475694563 Active Radha Sherman [facility] RN-C Active PROZAC 10 MG ORAL CAPSULE 1 PO Daily FLUOXETINE HCL 51362979557 No Longer Active Radha Sherman LAB RN-C Active VYVANSE 30 MG ORAL CAPSULE 1 PO daily LISDEXAMF ETAMINE DIMESYLATE 20665848857 Active Radha Sherman LAB RN-C Active XANAX 0.5 MG ORAL TABLET 1 tablet PO BID; PRN A LPRAZOLAM 53335879609 Active Radha Sherman LAB RN-C Active SIMVASTATIN 20 MG ORAL TABLET 1 tablet PO daily SI MVASTATIN 67115083913 Active Radha Sherman [facility] RN-C Active IBUPROFEN 800 MG ORAL TABLET 1 tablet PO q8hr PRN IBUPROFEN 27464787802 Active Radhasantos Whitaker APRN-C Active AMBIEN 5 MG ORAL TABLET 1 tablet PO once daily; PRN ZOLPIDEM TARTRATE 20228650793 Active Radha Whitaker APRN-C Active ALBUTEROL SULFATE HFA 108 (90 BASE) MCG/ACT INHALATION AEROSOL SOLUTION 2 puffs, INH, q4hr PRN ALBUTEROL SULFATE 41372954746 Active Radha Sherman A PRN-C Active AMBIEN 5 MG ORAL TABLET 1 po qHS PRN Insomnia ZOLPIDEM TARTRATE 33163371627 No Longer Active Radha Whitaker APRN-C Active XANAX 0.5 MG ORAL TABLET 1 po BID PRN anxiety A LPRAZOLAM 65078785396 No Longer Active Radha Whitaker APRN-C Active PAROXETINE HCL 40 MG ORAL TABLET 1 po qd PAR OXETINE HCL 22431639974 No Longer Active Radha Whitaker APRN-C Active FOCALIN XR 10 MG ORAL CAPSULE EXTENDED RELEASE 24 HOUR 1 po q a. m. DEXMETHYLPHENIDATE HCL 44199145600 No Longer Active Radha Low LAB RN-C Active SIMVASTATIN 20 MG ORAL TABLET 1 po qd SIMVAS TATIN 75912300894 No Longer Active Radha Whitaker APRN-C Active FUROSEMIDE 20 MG ORAL TABLET 1 daily for swelling 2018 FUROSEMIDE 60871271061 No Longer Active Radha Whitaker APRN-C Active KLOR-CON 10 10 MEQ ORAL TABLET EXTENDED RELEASE 1 daily with furosemide POTASSIUM CHLORIDE 57626345058 No Longer Active Radha Whitaker APRN-C Active HYDROCHLOROTHIAZIDE 12.5 MG ORAL CAPSULE 1 po qd PRN Edema 01/10 HYDROCHLOROTHIAZIDE 56936623105 No Longer Active Paul Hamlin MD Active IBUPROFEN 800 MG ORAL TABLET 1 tab every 8 hours as needed for p ain IBUPROFEN 61031189094 No Longer Active Paul Hamlin MD Active MIRALAX ORAL POWDER 8.5 to 17g po qd PRN Constipation POLYETHYLENE GLYCOL 3350 19372042090 No Longer Active Checo Conklin MD Active PROTONIX 40 MG ORAL TABLET DELAYED RELEASE 1 pill by m out daily, for acid reflux PANTOPRAZOLE SODIUM 62642291219 No Longer Activ e Corry Méndez LPN Active FLAGYL 500 MG ORAL TABLET 1 tablet by mouth bid 08/29 METRONIDAZOLE 95235939700 No Longer Active Corry Méndez LPN Active CLARITHROMYCIN 500 MG ORAL TABLET 1 tab po BID x 14 days CLARITHROMYCIN 07939740587 No Longer Active Corry Méndez LPN Active AMOXICILLIN 500 MG ORAL CAPSULE 2 po BID x 14 days for H. Pylori AMOXICILLIN 00497023389 No Longer Active Corry Méndez LPN Active FLUTICASONE PROPIONATE 50 MCG/ACT NASAL SUSPENSION 2 s prays/nostril qd PRN Congestion/Allergies FLUTICASONE PROPIONATE 9733809612 9 No Longer Active Checo Conklin MD Active AMOXICILLIN 500 MG ORAL CAPSULE 2 po BID x 10 days 201 01/15/27 AMOXICILLIN 33240721991 No Longer Active Checo Conklin MD Activ e CLARITIN 10 MG ORAL TABLET 1 tablet by mouth daily as needed for allergies LORATADINE 01784303619 No Longer Active Checo Ortiz MD Active BACTRIM DS 800-160 MG ORAL TABLET 1 tab by mouth twice daily 201 12/19/26 TRIMETHOPRIM-SULFAMETHOXAZOLE 77890848179 No Longer Active Ragini Carrillo MD Active DIFLUCAN 150 MG ORAL TABLET 1 tablet by mouth qod 2015 FLUCONAZOLE 40522269145 No Longer Active Efren Medel APRN Act mike AZITHROMYCIN 250 MG ORAL TABLET 2 po qd x 1 day, then 1 po q d x 4 days AZITHROMYCIN 23016506942 No Longer Active Efren flores APRN Active FLAGYL 500 MG ORAL TABLET 1 tablet by mouth bid 04/13 METRONIDAZOLE 21823190484 No Longer Active Checo Conklin MD Acti ve MAGNESIUM CITRATE 1.745 GM/30ML ORAL SOLUTION 150ml po BID P RN Constipation MAGNESIUM CITRATE 34546010646 No Longer Active Checo Conklin MD Active BACTROBAN 2 % EXTERNAL CREAM Apply to affected area BID for up to 10 days MUPIROCIN CALCIUM 34385624919 No Longer Active Checo Conklin MD Active HYDROCODONE-ACETAMINOPHEN 5-325 MG ORAL TABLET 1 tab b y mouth every 6 hours as needed HYDROCODONE-ACETAMINOPHEN 90805067481 No Longer Active Checo Conklin MD Active IBUPROFEN 800 MG ORAL TABLET 1 tab every 8 hours with food 03/20 IBUPROFEN 34240676172 No Longer Active Checo Conklin MD Active DIFLUCAN 150 MG ORAL TABLET 1 tablet by mouth if neede d, hold until symptoms start FLUCONAZOLE 59082188996 No Longer Active Checo Conklin MD Active BACTRIM DS 800-160 MG ORAL TABLET 1 tab by mouth twice daily 201 11/23/03 TRIMETHOPRIM-SULFAMETHOXAZOLE 63631637445 No Longer Active K bernice Méndez LPN Active HYDROCODONE-ACETAMINOPHEN 5-325 MG ORAL TABLET 0.5 to 1 tab by mouth every 6 hours as needed HYDROCODONE-ACETAMINOPHEN 79236737700 No Longer Active Checo Conklin MD Active ONDANSETRON 8 MG ORAL TABLET DISINTEGRATING place one tablet on tongue and allow to dissolve every 6 hours as needed for vomitting ONDANSETRON 46704183712 No Longer Active Checo Conklin MD Activ e COMPRO 25 MG RECTAL SUPPOSITORY insert or apply one garza ppository rectally as directed every 12 hours as needed for nausea PROCHLORPERAZINE 25191534835 No Longer Active Checo Conklin MD A ctive SUMATRIPTAN SUCCINATE 100 MG ORAL TABLET Take one PRN for migran e SUMATRIPTAN SUCCINATE 81546945315 No Longer Active Checo Conklin MD Active TRAVEL SICKNESS 25 MG ORAL TABLET CHEWABLE chew and sw allow one tablet every 6 hours as needed MECLIZINE HCL 12433985097 No Longer A ctive Checo Conklin MD Active BUPROPION HCL ER (SR) 100 MG ORAL TABLET EXTENDED RELE ASE 12 HOUR take one tablet by mouth one time daily for one week then take 1 two times daily BUPROPION HCL 93415733730 No Longer Active Checo gallagher MD Active TERBINAFINE HCL 250 MG ORAL TABLET take one table PO one time da moises TERBINAFINE HCL 35520230445 No Longer Active Checo Conklin MD Active METOCLOPRAMIDE HCL 10 MG ORAL TABLET take one PO tid PRN nausea METOCLOPRAMIDE HCL 93687294282 No Longer Active Checo Conklin MD Active DICLOFENAC SODIUM 75 MG ORAL TABLET DELAYED RELEASE 1 tablet by mouth twice daily PRN Knee pain DICLOFENAC SODIUM 70438093265 No Longer Active Checo Conklin MD Active LAMISIL 250 MG ORAL TABLET 1 po qd TERBINAFI NE HCL 95255477274 No Longer Active Checo Conklin MD Active REGLAN 10 MG ORAL TABLET 1 po TID PRN Nausea 3 METOCLOPRAMIDE HCL 61264034969 No Longer Active Checo Conklin MD Active CELEXA 20 MG ORAL TABLET 1 tablet by mouth daily 09/26 CITALOPRAM HYDROBROMIDE 97561721088 No Longer Active Checo Conklin MD Active AZITHROMYCIN 250 MG ORAL TABLET 2 po qd x 1 day, then 1 po q d x 4 days AZITHROMYCIN 46946805646 No Longer Active Checo Ortiz MD Active HYDROCODONE-ACETAMINOPHEN 5-325 MG ORAL TABLET 1 po q 6hr PRN Pa in HYDROCODONE-ACETAMINOPHEN 40563030013 No Longer Active Lenora Conklin MD Active PHENAZOPYRIDINE HCL 200 MG ORAL TABLET take 1 tab po TID for bladder pain PHENAZOPYRIDINE HCL 45476605399 No Longer Active Joe Conklin MD Active CIPRO 500 MG ORAL TABLET 1 tablet by mouth twice daily CIPROFLOXACIN HCL 15049960404 No Longer Active Dangelo Rangel MD Active HYDROCODONE-ACETAMINOPHEN 5-325 MG ORAL TABLET 1/2 to 1 po q 4 hours prn cough HYDROCODONE-ACETAMINOPHEN 69793259716 No Longer Activ e Dangelo Rangel MD Active BACTRIM DS 800-160 MG ORAL TABLET 1 po BID x 7 days 29/04/10 SULFAMETHOXAZOLE-TRIMETHOPRIM 62717067471 No Longer Active Checo Conklin MD Active PREDNISONE 20 MG ORAL TABLET 2 tabs daily for 3 days, 1 tab daily for 3 days, 1/2 tab daily for 2 days PREDNISONE 35234881277 No Longer Active Checo Conklin MD Active TRIAMCINOLONE ACETONIDE 0.1 % EXTERNAL OINTMENT Apply to affected areas TID for up to 2 weeks TRIAMCINOLONE ACETONIDE 92953948833 No Longer Active Checo Conklin MD Active CEFDINIR 300 MG ORAL CAPSULE by mouth twice a day 2013 CEFDINIR 26427454664 No Longer Active Dangelo Rangel MD Acti ve BUPROPION HCL ER (SMOKING DET) 150 MG ORAL TABLET EXTE NDED RELEASE 12 HOUR 1 a day for 1 week then 1 twice a day BUPROPION HCL (SMOKING DETER) 39285326417 No Longer Active Checo Conklin MD Active CHANTIX STARTING MONTH KARTHIK 0.5 MG X 11 & 1 MG X 42 ORA L TABLET 0.5mg daily for 3 days, then 0.5mg BID for 4 days, then 1mg BID VARENICLINE TARTRATE 41443138490 No Longer Active Checo Conklin MD Activ e CONCERTA 18 MG ORAL TABLET EXTENDED RELEASE 1 po q a.m. METHYLPHENIDATE HCL 39083032720 No Longer Active Checo Conklin MD Active TRAZODONE HCL 100 MG ORAL TABLET 0.5 to 1 po qHS PRN Insomnia 20 30/07/08 TRAZODONE HCL 94443056517 No Longer Active Checo Conklin MD Active FIORICET 325-50-40 MG TAB 1 tablet by mouth four times daily as needed SDAEHGAHFUOVU-EPHD-IIDAYLLCLQ 99759089102 No Longer Active Checo Conklin MD Active PHENERGAN CREAM* 25mg applied to wrist q6hr PRN Nausea PHENERGAN CREAM* No Longer Active Checo Conklin MD A ctive FLONASE 50 MCG/ACT NASAL SUSPENSION 1 spray each nostril am and hs FLUTICASONE PROPIONATE 18086787686 No Longer Active Checo Conklin MD Active ANTIPYRINE-BENZOCAINE 5.4-1.4 % OTIC SOLUTION 1-2 drops in affec yohannes ear BENZOCAINE-ANTIPYRINE 89352461898 No Longer Active Checo Conklin MD Active CEFDINIR 300 MG ORAL CAPSULE 1 po bid CEFDINIR 67030730321 No Longer Active Checo Conklin MD Active PREDNISONE 20 MG ORAL TABLET 2 tabs daily for 3 days, 1 tab daily for 3 days, 1/2 tab daily for 2 days PREDNISONE 47884314107 No Longer Active Checo Conklin MD Active AZITHROMYCIN 250 MG ORAL TABLET 2 po qd x 1 day, then 1 po q d x 4 days AZITHROMYCIN 47244170985 No Longer Active Checo Ortiz MD Active PREDNISONE 20 MG ORAL TABLET 2 tabs daily for 3 days, 1 tab daily for 3 days, 1/2 tab daily for 2 days PREDNISONE 53500914135 No Longer Active Checo Conklin MD Active ZITHROMAX Z-KARTHIK 250 MG ORAL TABLET 2 today, then 1 daily for 4 d ays AZITHROMYCIN 61920538594 No Longer Active Paul Hamlin MD Active FOCALIN XR 10 MG ORAL CAPSULE EXTENDED RELEASE 24 HOUR 1 po q a. m. DEXMETHYLPHENIDATE HCL 38252756324 No Longer Active Paul Hamlin MD Active PERCOCET 10-325 MG ORAL TABLET 1 tablet every 6 hours as needed for pain OXYCODONE-ACETAMINOPHEN 97606370646 No Longer Active Paul Hamlin MD Active LORTAB 5-500 MG ORAL TABLET 1/2 to 1 tablet by mouth e very 4 hours as needed for pain HYDROCODONE-ACETAMINOPHEN 66062132309 No Longer Active Checo Conklin MD Active FOCALIN XR 15 MG ORAL CAPSULE EXTENDED RELEASE 24 HOUR 1 po q a. m. DEXMETHYLPHENIDATE HCL 72740987481 No Longer Active Checo Conklin MD Active ZOFRAN ODT 4 MG ORAL TABLET DISINTEGRATING 1 po q6hr PRN Nausea ONDANSETRON 50554705439 No Longer Active Checo Conklin MD Active PERCOCET 5-325 MG ORAL TABLET 1 tablet by mouth every 6 hour s as needed OXYCODONE-ACETAMINOPHEN 71776994927 No Longer Active Checo Conklin MD Active PYRIDIUM 200 MG ORAL TABLET take 1 tab po TID prn urinary pain. PHENAZOPYRIDINE HCL 37622912083 No Longer Active Checo Joshua Active FLUCONAZOLE 150 MG ORAL TABLET take 1 tab po qday once FLUCONAZOLE 44093534974 No Longer Active Dangelo Rangel MD Acti ve CIPRO 500 MG ORAL TABLET 1 tablet by mouth twice daily CIPROFLOXACIN HCL 65566578564 No Longer Active Dangelo Rangel MD Active PYRIDIUM 200 MG ORAL TABLET take 1 tab po TID prn urinary pain. PYRIDIUM 200 MG ORAL TABLET 6334243 PHENAZOPYRIDINE HCL Inactive PERCOCET 5-325 MG ORAL TABLET 1 tablet by mouth every 6 hour s as needed PERCOCET 5-325 MG ORAL TABLET 7344304 OXYCODONE-ACETAMINOPHEN Inactive ZOFRAN ODT 4 MG ORAL [...] for pain PERCOCET 10-325 MG ORAL TABLET 6051369 OXYCODONE-ACETAMI NOPHEN Inactive FOCALIN XR 10 MG ORAL CAPSULE EXTENDED RELEASE 24 HOUR 1 po q a. m. FOCALIN XR 10 MG ORAL CAPSULE EXTENDED RELEASE 24 HOUR DEXMETHYLPHENIDATE HCL Inactive CEFDINIR 300 MG ORAL CAPSULE 1 po bid CEFDINI R 300 MG ORAL CAPSULE 275352 CEFDINIR Inactive ANTIPYRINE-BENZOCAINE 5.4-1.4 % OTIC SOLUTION [...] 30/07/08 TRAZODONE HCL 100 MG ORAL TABLET 568739 TRAZODONE HCL Inactive CONCERTA 18 MG ORAL [...] cough HYDROCODONE-ACETAMINOPHEN 5-325 MG ORAL TABLET 8 67443 HYDROCODONE-ACETAMINOPHEN Inactive PHENAZOPYRIDINE HCL 200 MG ORAL TABLET take 1 tab po TID for bladder pain PHENAZOPYRIDINE HCL 200 MG ORAL TABLET 0095359 PHENAZOPYRIDINE HCL Inactive HYDROCODONE-ACETAMINOPHEN 5-325 MG ORAL TABLET 1 po q 6hr PRN Pa in HYDROCODONE-ACETAMINOPHEN 5-325 MG ORAL TABLET 723003 HYDROCODONE-ACETAMINOPHEN Inactive CELEXA 20 MG ORAL TABLET 1 tablet by mouth daily 09/26 CELEXA 20 MG ORAL TABLET 288068 CITALOPRAM HYDROBROMIDE Inactive REGLAN 10 MG ORAL TABLET 1 po TID PRN Nausea 3 REGLAN 10 MG ORAL TABLET 785312 METOCLOPRAMIDE HCL Inactive LAMISIL 250 MG ORAL TABLET 1 po qd L AMISIL 250 MG ORAL TABLET 492613 TERBINAFINE HCL Inactive DICLOFENAC SODIUM 75 MG ORAL TABLET DELAYED RELEASE 1 tablet by mouth twice daily PRN Knee pain DICLOFENAC SODIUM 75 MG ORAL TABLET DELAYED RELEASE 533951 DICLOFENAC SODIUM Inactive METOCLOPRAMIDE HCL 10 MG ORAL TABLET take one PO tid PRN nausea METOCLOPRAMIDE HCL 10 MG ORAL TABLET 783638 METOCLOPRAM ZACH HCL Inactive TERBINAFINE HCL 250 MG ORAL TABLET take one table PO one time da moises TERBINAFINE HCL 250 MG ORAL TABLET 539225 TERBINAFINE H CL Inactive BUPROPION HCL ER [...] SICKNESS 25 M G ORAL TABLET CHEWABLE 091491 MECLIZINE HCL Inactive SUMATRIPTAN SUCCINATE 100 MG ORAL TABLET Take one PRN for migran e SUMATRIPTAN SUCCINATE 100 MG ORAL TABLET 608513 SUMATRIPTAN SUCCINATE Inactive COMPRO 25 MG RECTAL SUPPOSITORY insert or apply one garza ppository rectally as directed every 12 hours as needed for nausea COMPRO 25 MG RECTAL SUPPOSITORY 277845 PROCHLORPERAZINE Inactive ONDANSETRON 8 MG ORAL TABLET DISINTEGRATING place one tablet on tongue and allow to dissolve every 6 hours as needed for vomitting ONDANSETRON 8 MG ORAL TABLET DISINTEGRATING 719400 ONDANSETRON Inactive HYDROCODONE-ACETAMINOPHEN 5-325 MG ORAL TABLET 0.5 to 1 tab by mouth every 6 hours as needed HYDROCODONE-ACETAMIN OPHEN 5-325 MG ORAL TABLET 190773 HYDROCODONE-ACETAMINOPHEN Inactive BACTRIM DS 800-160 MG ORAL TABLET 1 tab by mouth twice daily 201 11/23/03 BACTRIM DS 800-160 MG ORAL TABLET 581202 TRIMETHOPRIM-SULFAMETHOXAZOLE Inactive DIFLUCAN 150 MG ORAL TABLET 1 tablet by mouth if neede d, hold until symptoms start DIFLUCAN 150 MG ORAL TABLET 424744 FLUCONAZ OLE Inactive IBUPROFEN 800 MG ORAL TABLET 1 tab every 8 hours with food 03/20 IBUPROFEN 800 MG ORAL TABLET 745035 IBUPROFEN [place] ctive HYDROCODONE-ACETAMINOPHEN 5-325 MG ORAL TABLET 1 tab b y mouth every 6 hours as needed HYDROCODONE-ACETAMINOPHEN 5-325 MG ORAL TABLET 843860 HYDROCODONE-ACETAMINOPHEN Inactive BACTROBAN 2 % EXTERNAL CREAM Apply to affected area BID for up to 10 days BACTROBAN 2 % EXTERNAL CREAM MUPIROCIN CA LCIUM Inactive MAGNESIUM CITRATE 1.745 GM/30ML ORAL SOLUTION 150ml po BID P RN Constipation MAGNESIUM CITRATE 1.745 GM/30ML ORAL SOLUTION 10 87103 MAGNESIUM CITRATE Inactive DIFLUCAN 150 MG ORAL TABLET 1 tablet by mouth qod 2015 DIFLUCAN 150 MG ORAL TABLET 848306 FLUCONAZOLE Inactive BACTRIM DS 800-160 MG ORAL TABLET 1 tab by mouth twice daily 201 12/19/26 BACTRIM DS 800-160 MG ORAL TABLET 018429 TRIMETHOPRIM-SULFAMETHOXAZOLE Inactive CLARITIN 10 MG ORAL TABLET 1 tablet by mouth daily as needed for allergies CLARITIN 10 MG ORAL TABLET 085070 LORATADINE I nactive FLUTICASONE PROPIONATE 50 MCG/ACT NASAL SUSPENSION 2 s prays/nostril qd PRN Congestion/Allergies FLUTICASONE PROPION ATE 50 MCG/ACT NASAL SUSPENSION 2861290 FLUTICASONE PROPIONATE Inactive MIRALAX ORAL POWDER 8.5 to 17g po qd PRN Constipation MIRALAX ORAL POWDER 936051 POLYETHYLENE GLYCOL 3350 Inactive IBUPROFEN 800 MG ORAL TABLET 1 tab every 8 hours as needed for p ain IBUPROFEN 800 MG ORAL TABLET 849017 IBUPROFEN [place] ctive HYDROCHLOROTHIAZIDE 12.5 MG ORAL CAPSULE 1 po qd PRN Edema 01/10 HYDROCHLOROTHIAZIDE 12.5 MG ORAL CAPSULE 691107 HYDROCH LOROTHIAZIDE Inactive KLOR-CON 10 10 MEQ ORAL TABLET EXTENDED RELEASE 1 daily with furosemide KLOR-CON 10 10 MEQ ORAL TABLET EXTENDED RELEASE POTASSIUM CHLORIDE Inactive FUROSEMIDE 20 MG ORAL TABLET 1 daily for swelling 2018 FUROSEMIDE 20 MG ORAL TABLET 024516 FUROSEMIDE Inactive SIMVASTATIN 20 MG ORAL TABLET 1 po qd SIMVASTATIN 20 MG ORAL TABLET 468359 SIMVASTATIN Inactive FOCALIN XR 10 MG ORAL CAPSULE EXTENDED RELEASE 24 HOUR 1 po q a. m. FOCALIN XR 10 MG ORAL CAPSULE EXTENDED RELEASE 24 HOUR DEXMETHYLPHENIDATE HCL Inactive PAROXETINE HCL 40 MG ORAL TABLET 1 po qd PAROXETINE HCL 40 MG ORAL TABLET 6608853 PAROXETINE HCL Inactive XANAX 0.5 MG ORAL TABLET 1 po BID PRN anxiety XANAX 0.5 MG ORAL TABLET 119289 ALPRAZOLAM Inactive AMBIEN 5 MG ORAL TABLET 1 po qHS PRN Insomnia AMBIEN 5 MG ORAL TABLET 362991 ZOLPIDEM TARTRATE Inactive PROZAC 10 MG ORAL CAPSULE 1 PO Daily AR OZAC 10 MG ORAL CAPSULE 560329 FLUOXETINE HCL Inactive CIPRO 500 MG ORAL TABLET 1 tablet by mouth twice daily CIPRO 500 MG ORAL TABLET 461719 CIPROFLOXACIN HCL Inactive FLUCONAZOLE 150 MG ORAL TABLET take 1 tab po qday once FLUCONAZOLE 150 MG ORAL TABLET 221057 FLUCONAZOLE Inactive ZITHROMAX Z-KARTHIK 250 MG ORAL TABLET 2 today, then 1 daily for 4 d ays ZITHROMAX Z-KARTHIK 250 MG ORAL TABLET 142781 AZITHROMYCIN Inactive PREDNISONE 20 MG ORAL TABLET 2 tabs daily for 3 days, 1 tab daily for 3 days, 1/2 tab daily for 2 days PREDNISONE 20 MG ORAL T ABLET 943840 PREDNISONE Inactive AZITHROMYCIN 250 MG ORAL TABLET 2 po qd x 1 day, then 1 po q d x 4 days AZITHROMYCIN 250 MG ORAL TABLET 565581 AZITHROMY SPARKLE Inactive PREDNISONE 20 MG ORAL TABLET 2 tabs daily for 3 days, 1 tab daily for 3 days, 1/2 tab daily for 2 days PREDNISONE 20 MG ORAL TABLET 246313 PREDNISONE Inactive CEFDINIR 300 MG ORAL CAPSULE by mouth twice a day 2013 CEFDINIR 300 MG ORAL CAPSULE 206666 CEFDINIR Inactive TRIAMCINOLONE ACETONIDE 0.1 % EXTERNAL OINTMENT Apply to affected areas TID for up to 2 weeks TRIAMCINOLONE ACETON ZACH 0.1 % EXTERNAL OINTMENT 7410000 TRIAMCINOLONE ACETONIDE Inactive PREDNISONE 20 MG ORAL TABLET 2 tabs daily for 3 days, 1 tab daily for 3 days, 1/2 tab daily for 2 days PREDNISONE 20 MG ORAL T ABLET 225551 PREDNISONE Inactive BACTRIM DS 800-160 MG ORAL TABLET 1 po BID x 7 days 29/04/10 BACTRIM DS 800-160 MG ORAL TABLET 526068 SULFAMETHOXAZOLE-TRIMETHOP RIM Inactive CIPRO 500 MG ORAL TABLET 1 tablet by mouth twice daily CIPRO 500 MG ORAL TABLET 754899 CIPROFLOXACIN HCL Inactive AZITHROMYCIN 250 MG ORAL TABLET 2 po qd x 1 day, then 1 po q d x 4 days AZITHROMYCIN 250 MG ORAL TABLET 742361 AZITHROMY SPARKLE Inactive FLAGYL 500 MG ORAL TABLET 1 tablet by mouth bid 04/13 FLAGYL 500 MG ORAL TABLET 231326 METRONIDAZOLE Inactive AZITHROMYCIN 250 MG ORAL TABLET 2 po qd x 1 day, then 1 po q d x 4 days AZITHROMYCIN 250 MG ORAL TABLET 342740 AZITHROMY SPARKLE Inactive AMOXICILLIN 500 MG ORAL CAPSULE 2 po BID x 10 days 201 01/15/27 AMOXICILLIN 500 MG ORAL CAPSULE 228114 AMOXICILLIN Inactive AMOXICILLIN 500 MG ORAL CAPSULE 2 po BID x 14 days for H. Pylori AMOXICILLIN 500 MG ORAL CAPSULE 480609 AMOXICILLIN Inactive CLARITHROMYCIN 500 MG ORAL TABLET 1 tab po BID x 14 days CLARITHROMYCIN 500 MG ORAL TABLET 042966 CLARITHROMYCIN Inacti ve FLAGYL 500 MG ORAL TABLET 1 tablet by mouth bid 08/29 FLAGYL 500 MG ORAL TABLET 293769 METRONIDAZOLE Inactive PROTONIX 40 MG ORAL TABLET DELAYED RELEASE 1 pill by m outh daily, for acid reflux PROTONIX 40 MG ORAL TABLET DELAYED RELEAS E 959720 PANTOPRAZOLE SODIUM Inactive Immunizations Vaccine Administration Date [...] Panel - Chemistry sodium, serum 142 mmol/L 378-992 9694/07/22 carbon dioxide, venous blood 26.3 mmol/L 21.0-32 [...] 0.80 mg/dL 0.00-1.00 cholesterol, serum 172 mg/dL 079-635 1064/07/22 triglyceride, serum, fasting 222 mg/dL 30-200 HDL [...] ative Encounters Code Encounter Date Provider Facility CPT-10120 Level 3 Est. Patient 09:11:53 CDT Radha de la rosa LAB RN-C [facility] CPT-03914 Level 3 Est. Patient 16:46:51 CDT Thomas reynolds DO [facility] CPT-01457 [id number] Vst-Est Level III 14:40:49 CDT Paul Hamlin MD [facility] CPT-83612 Level 4 Est. Patient 11:08:43 CDT Checo Conklin MD [facility] CPT-01173 [id number] Vst-Est Level III 09:37:41 CDT Dangelo Rangel MD [facility] CPT-75555 Level 4 Est. Patient 08:57:51 ARCHIVES TECHNICIAN Checo Conklin MD [facility] CPT-35884 Level 3 Est. Patient 11:24:55 ARCHIVES TECHNICIAN Efren almendarez [facility] CPT-13868 Level 3 Est. Patient 13:05:44 CDT Paul Hamlin MD [facility] CPT-24177 Level 3 Est. Patient 11:29:55 CDT Cehco Conklin MD [facility] CPT-54871 Level 4 Est. Patient 11:08:12 ARCHIVES TECHNICIAN Checo Conklin MD [facility] CPT-12484 Level 4 Est. Patient 16:06:48 ARCHIVES TECHNICIAN Checo Conklin MD [facility] CPT-03017 Level 3 Est. Patient 09:11:49 CDT Efren almendarez [facility] CPT-44309 Level 2 Est. Patient 19:53:27 CDT Tanner hill MD [facility] CPT-28575 Level 3 Est. Patient 09:15:34 CDT Efren almendarez [facility] CPT-67832 Level 3 Est. Patient 11:28:51 ARCHIVES TECHNICIAN Efren almendarez [facility] CPT-51115 Level 4 Est. Patient 13:55:46 ARCHIVES TECHNICIAN Checo Conklin MD [facility] CPT-38542 Level 4 Est. Patient 17:10:53 CDT Checo Conklin MD [facility] CPT-25398 Level 3 Est. Patient 15:56:22 CDT Checo Conklin MD [facility] CPT-17693 Level 3 Est. Patient 15:29:07 CDT Checo Conklin MD [facility] CPT-22131 Level 3 Est. Patient 14:38:41 CDT Checo Conklin MD [facility] CPT-53186 Level 3 Est. Patient 15:22:03 ARCHIVES TECHNICIAN Thomas reynolds DO [facility] CPT-68688 Level 3 Est. Patient 13:34:17 ARCHIVES TECHNICIAN Checo Conklin MD [facility] CPT-23417 Level 3 Est. Patient 12:29:32 CDT Dangelo arroyo MD [facility] CPT-11269 Level 3 Est. Patient 16:53:02 CDT Checo Conklin MD [facility] CPT-13571 Level 3 Est. Patient 16:37:13 CDT Checo Conklin MD [facility] CPT-03322 Level 3 Est. Patient 16:16:59 CDT Paul Hamlin MD [facility] CPT-75717 Level 3 Est. Patient 14:20:13 CDT Dangelo arroyo MD [facility] CPT-85519 Level 4 Est. Patient 11:29:33 CDT Checo Conklin MD [facility] CPT-59750 Level 3 Est. Patient 17:08:31 CDT Checo Conklin MD [facility] CPT-36452 Level 3 Est. Patient 16:50:42 ARCHIVES TECHNICIAN Checo Conklin MD [facility] CPT-90135 Level 4 Est. Patient 09:26:08 ARCHIVES TECHNICIAN Checo Conklin MD [facility] CPT-62612 Level 3 Est. Patient 11:37:10 CDT Checo Conklin MD [facility] CPT-85829 Level 4 Est. Patient 14:07:38 CDT Checo Conklin MD [facility] CPT-84929 Level 3 Est. Patient 09:54:41 CDT Checo Conklin MD [facility] CPT-89225 Level 3 Est. Patient 11:10:54 CDT Paul Hamlin MD [facility] CPT-25269 Level 3 Est. Patient 14:16:56 ARCHIVES TECHNICIAN Checo Conklin MD [facility] CPT-17487 Level 3 Est. Patient 11:04:11 ARCHIVES TECHNICIAN Checo Conklin MD [facility] CPT-78221 Level 3 Est. Patient 17:09:26 CDT Dangelo arroyo MD [facility] CPT-86591 Level 3 Est. Patient 16:54:37 CDT Checo Conklin MD [facility] Procedures Code Procedure Name Date Entry Date Standard Desc ription CPT-14279 Abx/Therapy Injection 09:52:15 CDT CPT-84673 Abx/Therapy Injection 18:17:48 CDT CPT-J2550 Phenergan 25 mg (Promethazine) 16:48:23 CDT CPT-J1885 Toradol 60 mg 16:48:23 CDT CPT-19534 Wrist, right, comp 3V - XRAY USE ONLY 09:24:31 CDT CPT-32899 Abd compl w upright - XRAY USE ONLY 1 1:36:54 ARCHIVES TECHNICIAN CPT-24768 UA w micro - LAB USE ONLY 17:06:46 CDT 2015 CPT-00201 [facility] Qual - LAB USE ONLY 17:06:46 CDT 05/06 CPT-28051 CMP - LAB USE ONLY 17:06:46 CDT CPT-40647 CBC with Diff - LAB USE ONLY 17:06:45 CDT 2 CPT-65265 Venipuncture Draw Fee 17:06:45 CDT CPT-LR Lesion Removal 19:53:27 CDT CPT-OV Office Visit 11:31:28 CDT CPT-22314 Tubersol 09:39:29 CDT CPT-J2550 Phenergan 25 mg (Promethazine) 13:59:02 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
--- OUTSIDE RECORDS SUMMARY | 2019-09-29 01:14 | XMS REPORT | Clinical Summary ---
Author Author Admin, Bethany Gonzales Organization [employer] Address Unknown Phone Unavailable Allergies, Adverse Reactions, [...] Index 27.0-27.9 Adult Resolved 2018 Radha Whitaker [employer]-C Body Mass Index 27.0-27.9, adult Body Mass Index 26.0-26.9 Adult Refinement 2017 Thomas Marks DO Body Mass Index 26.0-26.9, adult BMI 25-25.9 Active Radha Whitaker [employer]-C Body Mass Index 26.0-26.9, adult Wellness examination, routine medical V70.0 Active Radha Whitaker [employer]-C Routine general medical examination at a health care facility Hypertension 401.9 Active Radha Whitaker [employer]PECT[employer]-C Unspecified essential hypertension Screening for cardiovascular condition [...] Hilaria Conklin MD BRONCHITIS, ACUTE ICD-466.0 Inactive Cheoc gallagher MD Abdominal pain ICD-789.00 Inactive Checo [...] CAPSULE 1 PO Daily FLUOXETINE H CL 93447549253 Active Radha Sherman [employer]-C Active VYVANSE 30 MG ORAL CAPSULE 1 PO daily LISDEXAMF ETAMINE DIMESYLATE 51172701107 Active Radha Sherman [employer]-C Active XANAX 0.5 MG ORAL TABLET 1 tablet PO BID; PRN A LPRAZOLAM 84437976912 Active Radha Sherman INS[employer]-C Active SIMVASTATIN 20 MG ORAL TABLET 1 tablet PO daily SI MVASTATIN 76065987377 Active Radha Sherman INSPECT[employer]IMENT[employer]-C Active IBUPROFEN 800 MG ORAL TABLET 1 tablet PO q8hr PRN IBUPROFEN 71513239490 Active Radha Sherman [employer]-C Active AMBIEN 5 MG ORAL TABLET 1 tablet PO once daily; PRN ZOLPIDEM TARTRATE 21875921279 Active Radha Sherman INSPECT[employer]AL [employer]-C Active ALBUTEROL SULFATE HFA 108 (90 BASE) MCG/ACT INHALATION AEROSOL SOLUTION 2 puffs, INH, q4hr PRN ALBUTEROL SULFATE 62612124272 Active Radha Whitaker A REFUGION-C Active AMBIEN 5 MG ORAL TABLET 1 po qHS PRN Insomnia ZOLPIDEM TARTRATE 57952839009 No Longer Active Radha Whitaker APRN-C Active XANAX 0.5 MG ORAL TABLET 1 po BID PRN anxiety A LPRAZOLAM 66527104728 No Longer Active Radha CHEWC Active PAROXETINE HCL 40 MG ORAL TABLET 1 po qd PAR OXETINE HCL 07373102977 No Longer Active Radha VACA Active FOCALIN XR 10 MG ORAL CAPSULE EXTENDED RELEASE 24 HOUR 1 po q a. m. DEXMETHYLPHENIDATE HCL 87557575096 No Longer Active Radha Low APRN-C Active SIMVASTATIN 20 MG ORAL TABLET 1 po qd SIMVAS TATIN 74445380951 No Longer Active Radha CHEWC Active FUROSEMIDE 20 MG ORAL TABLET 1 daily for swelling 2018 FUROSEMIDE 82936859729 No Longer Active Radha VACA Active KLOR-CON 10 10 MEQ ORAL TABLET EXTENDED RELEASE 1 daily with furosemide POTASSIUM CHLORIDE 90687742722 No Longer Active Radha VACA Active HYDROCHLOROTHIAZIDE 12.5 MG ORAL CAPSULE 1 po qd PRN Edema 01/10 HYDROCHLOROTHIAZIDE 19043814251 No Longer Active Paul Hamlin MD Active IBUPROFEN 800 MG ORAL TABLET 1 tab every 8 hours as needed for p ain IBUPROFEN 58153083336 No Longer Active Paul Hamlin MD Active MIRALAX ORAL POWDER 8.5 to 17g po qd PRN Constipation POLYETHYLENE GLYCOL 3350 40443574855 No Longer Active Checo Conklin MD Active PROTONIX 40 MG ORAL TABLET DELAYED RELEASE 1 pill by m outh daily, for acid reflux PANTOPRAZOLE SODIUM 21798830140 No Longer Activ e Corry Méndez LPN Active FLAGYL 500 MG ORAL TABLET 1 tablet by mouth bid 08/29 METRONIDAZOLE 90483730476 No Longer Active Corry Méndez LPN Active CLARITHROMYCIN 500 MG ORAL TABLET 1 tab po BID x 14 days CLARITHROMYCIN 67211095754 No Longer Active Corry Méndez LPN Active AMOXICILLIN 500 MG ORAL CAPSULE 2 po BID x 14 days for H. Pylori AMOXICILLIN 71653834678 No Longer Active Corry Méndez LPN Active FLUTICASONE PROPIONATE 50 MCG/ACT NASAL SUSPENSION 2 s prays/nostril qd PRN Congestion/Allergies FLUTICASONE PROPIONATE 7021648113 9 No Longer Active Checo Conklin MD Active AMOXICILLIN 500 MG ORAL CAPSULE 2 po BID x 10 days 201 01/15/27 AMOXICILLIN 69244434085 No Longer Active Checo Conklin MD Activ e CLARITIN 10 MG ORAL TABLET 1 tablet by mouth daily as needed for allergies LORATADINE 01262161257 No Longer Active Checo Ortiz MD Active BACTRIM DS 800-160 MG ORAL TABLET 1 tab by mouth twice daily 201 12/19/26 TRIMETHOPRIM-SULFAMETHOXAZOLE 02168417333 No Longer Active Ragini Carrillo MD Active DIFLUCAN 150 MG ORAL TABLET 1 tablet by mouth qod 2015 FLUCONAZOLE 22250924437 No Longer Active Efren Medel APRN Act mike AZITHROMYCIN 250 MG ORAL TABLET 2 po qd x 1 day, then 1 po q d x 4 days AZITHROMYCIN 26448948762 No Longer Active Efren flores APRN Active FLAGYL 500 MG ORAL TABLET 1 tablet by mouth bid 04/13 METRONIDAZOLE 81974779941 No Longer Active Checo Conklin MD Acti ve MAGNESIUM CITRATE 1.745 GM/30ML ORAL SOLUTION 150ml po BID P RN Constipation MAGNESIUM CITRATE 42005475270 No Longer Active Checo Conklin MD Active BACTROBAN 2 % EXTERNAL CREAM Apply to affected area BID for up to 10 days MUPIROCIN CALCIUM 24384594847 No Longer Active Checo Conklin MD Active HYDROCODONE-ACETAMINOPHEN 5-325 MG ORAL TABLET 1 tab b y mouth every 6 hours as needed HYDROCODONE-ACETAMINOPHEN 79801699160 No Longer Active Checo Conklin MD Active IBUPROFEN 800 MG ORAL TABLET 1 tab every 8 hours with food 03/20 IBUPROFEN 37260663541 No Longer Active Checo Conklin MD Active DIFLUCAN 150 MG ORAL TABLET 1 tablet by mouth if neede d, hold until symptoms start FLUCONAZOLE 65851909493 No Longer Active Checo Conklin MD Active BACTRIM DS 800-160 MG ORAL TABLET 1 tab by mouth twice daily 201 11/23/03 TRIMETHOPRIM-SULFAMETHOXAZOLE 37550165022 No Longer Active K bernice Méndez LPN Active HYDROCODONE-ACETAMINOPHEN 5-325 MG ORAL TABLET 0.5 to 1 tab by mouth every 6 hours as needed HYDROCODONE-ACETAMINOPHEN 29580963031 No Longer Active Checo Conklin MD Active ONDANSETRON 8 MG ORAL TABLET DISINTEGRATING place one tablet on tongue and allow to dissolve every 6 hours as needed for vomitting ONDANSETRON 95840675955 No Longer Active Checo Conklin MD Activ e COMPRO 25 MG RECTAL SUPPOSITORY insert or apply one garza ppository rectally as directed every 12 hours as needed for nausea PROCHLORPERAZINE 20339168495 No Longer Active Checo Conklin MD A ctive SUMATRIPTAN SUCCINATE 100 MG ORAL TABLET Take one PRN for migran e SUMATRIPTAN SUCCINATE 74159427025 No Longer Active Checo Conklin MD Active TRAVEL SICKNESS 25 MG ORAL TABLET CHEWABLE chew and sw allow one tablet every 6 hours as needed MECLIZINE HCL 41371438495 No Longer A ctive Checo Conklin MD Active BUPROPION HCL ER (SR) 100 MG ORAL TABLET EXTENDED RELE ASE 12 HOUR take one tablet by mouth one time daily for one week then take 1 two times daily BUPROPION HCL 50734776666 No Longer Active Checo gallagher MD Active TERBINAFINE HCL 250 MG ORAL TABLET take one table PO one time da moises TERBINAFINE HCL 54911400198 No Longer Active Checo Conklin MD Active METOCLOPRAMIDE HCL 10 MG ORAL TABLET take one PO tid PRN nausea METOCLOPRAMIDE HCL 00912801446 No Longer Active Checo Conklin MD Active DICLOFENAC SODIUM 75 MG ORAL TABLET DELAYED RELEASE 1 tablet by mouth twice daily PRN Knee pain DICLOFENAC SODIUM 97701844775 No Longer Active Checo Conklin MD Active LAMISIL 250 MG ORAL TABLET 1 po qd TERBINAFI NE HCL 35989511557 No Longer Active Checo Conklin MD Active REGLAN 10 MG ORAL TABLET 1 po TID PRN Nausea 3 METOCLOPRAMIDE HCL 37030417927 No Longer Active Checo Conklin MD Active CELEXA 20 MG ORAL TABLET 1 tablet by mouth daily 09/26 CITALOPRAM HYDROBROMIDE 05875595217 No Longer Active Checo Conklin MD Active AZITHROMYCIN 250 MG ORAL TABLET 2 po qd x 1 day, then 1 po q d x 4 days AZITHROMYCIN 97168800501 No Longer Active Checo Ortiz MD Active HYDROCODONE-ACETAMINOPHEN 5-325 MG ORAL TABLET 1 po q 6hr PRN Pa in HYDROCODONE-ACETAMINOPHEN 13879475577 No Longer Active Lenora Conklin MD Active PHENAZOPYRIDINE HCL 200 MG ORAL TABLET take 1 tab po TID for bladder pain PHENAZOPYRIDINE HCL 88487856500 No Longer Active Joe Conklin MD Active CIPRO 500 MG ORAL TABLET 1 tablet by mouth twice daily CIPROFLOXACIN HCL 50302726094 No Longer Active Dangelo Rangel MD Active HYDROCODONE-ACETAMINOPHEN 5-325 MG ORAL TABLET 1/2 to 1 po q 4 hours prn cough HYDROCODONE-ACETAMINOPHEN 09630006204 No Longer Activ e Dangelo Rangel MD Active BACTRIM DS 800-160 MG ORAL TABLET 1 po BID x 7 days 29/04/10 SULFAMETHOXAZOLE-TRIMETHOPRIM 36814087857 No Longer Active Checo Conklin MD Active PREDNISONE 20 MG ORAL TABLET 2 tabs daily for 3 days, 1 tab daily for 3 days, 1/2 tab daily for 2 days PREDNISONE 00674116482 No Longer Active Checo Conklin MD Active TRIAMCINOLONE ACETONIDE 0.1 % EXTERNAL OINTMENT Apply to affected areas TID for up to 2 weeks TRIAMCINOLONE ACETONIDE 45557236406 No Longer Active Checo Conklin MD Active CEFDINIR 300 MG ORAL CAPSULE by mouth twice a day 2013 CEFDINIR 24069379047 No Longer Active Dangelo Rangel MD Acti ve BUPROPION HCL ER (SMOKING DET) 150 MG ORAL TABLET EXTE NDED RELEASE 12 HOUR 1 a day for 1 week then 1 twice a day BUPROPION HCL (SMOKING DETER) 19336775227 No Longer Active Checo Conklin MD Active CHANTIX STARTING MONTH KARTHIK 0.5 MG X 11 & 1 MG X 42 ORA L TABLET 0.5mg daily for 3 days, then 0.5mg BID for 4 days, then 1mg BID VARENICLINE TARTRATE 26960269841 No Longer Active Checo Conklin MD Activ e CONCERTA 18 MG ORAL TABLET EXTENDED RELEASE 1 po q a.m. METHYLPHENIDATE HCL 43128967087 No Longer Active Checo Conklin MD Active TRAZODONE HCL 100 MG ORAL TABLET 0.5 to 1 po qHS PRN Insomnia 20 30/07/08 TRAZODONE HCL 98056001569 No Longer Active Checo Conklin MD Active FIORICET 325-50-40 MG TAB 1 tablet by mouth four times daily as needed [id number] 37225349302 No Longer Active Checo Conklin MD Active PHENERGAN CREAM* 25mg applied to wrist q6hr PRN Nausea PHENERGAN CREAM* No Longer Active Checo Conklin MD A ctive FLONASE 50 MCG/ACT NASAL SUSPENSION 1 spray each nostril am and hs FLUTICASONE PROPIONATE 31007316668 No Longer Active Checo Conklin MD Active ANTIPYRINE-BENZOCAINE 5.4-1.4 % OTIC SOLUTION 1-2 drops in affec yohannes ear BENZOCAINE-ANTIPYRINE 91376766721 No Longer Active Checo Conklin MD Active CEFDINIR 300 MG ORAL CAPSULE 1 po bid CEFDINIR 81622479478 No Longer Active Checo Conklin MD Active PREDNISONE 20 MG ORAL TABLET 2 tabs daily for 3 days, 1 tab daily for 3 days, 1/2 tab daily for 2 days PREDNISONE 74035210714 No Longer Active Checo Conklin MD Active AZITHROMYCIN 250 MG ORAL TABLET 2 po qd x 1 day, then 1 po q d x 4 days AZITHROMYCIN 31350280392 No Longer Active Checo Ortiz MD Active PREDNISONE 20 MG ORAL TABLET 2 tabs daily for 3 days, 1 tab daily for 3 days, 1/2 tab daily for 2 days PREDNISONE 89344176181 No Longer Active Checo Conklin MD Active ZITHROMAX Z-KARTHIK 250 MG ORAL TABLET 2 today, then 1 daily for 4 d ays AZITHROMYCIN 22243792269 No Longer Active Paul Hamlin MD Active FOCALIN XR 10 MG ORAL CAPSULE EXTENDED RELEASE 24 HOUR 1 po q a. m. DEXMETHYLPHENIDATE HCL 53318275087 No Longer Active Paul Hamlin MD Active PERCOCET 10-325 MG ORAL TABLET 1 tablet every 6 hours as needed for pain OXYCODONE-ACETAMINOPHEN 66022992830 No Longer Active Paul Hamlin MD Active LORTAB 5-500 MG ORAL TABLET 1/2 to 1 tablet by mouth e very 4 hours as needed for pain HYDROCODONE-ACETAMINOPHEN 92730277584 No Longer Active Checo Conklin MD Active FOCALIN XR 15 MG ORAL CAPSULE EXTENDED RELEASE 24 HOUR 1 po q a. m. DEXMETHYLPHENIDATE HCL 26482638201 No Longer Active Checo Conklin MD Active ZOFRAN ODT 4 MG ORAL TABLET DISINTEGRATING 1 po q6hr PRN Nausea ONDANSETRON 40072711046 No Longer Active Checo Conklin MD Active PERCOCET 5-325 MG ORAL TABLET 1 tablet by mouth every 6 hour s as needed OXYCODONE-ACETAMINOPHEN 91273560119 No Longer Active Checo Conklin MD Active PYRIDIUM 200 MG ORAL TABLET take 1 tab po TID prn urinary pain. PHENAZOPYRIDINE HCL 73177770708 No Longer Active Checo Joshua Active FLUCONAZOLE 150 MG ORAL TABLET take 1 tab po qday once FLUCONAZOLE 74531997127 No Longer Active Dangelo Rangel MD Acti ve CIPRO 500 MG ORAL TABLET 1 tablet by mouth twice daily CIPROFLOXACIN HCL 52159195771 No Longer Active Dangelo Rangel MD Active PHENERGAN CREAM* 25mg applied to wrist q6hr PRN Nausea PHENERGAN CREAM* Inactive AMBIEN 5 MG ORAL TABLET 1 po qHS PRN Insomnia AMBIEN 5 MG ORAL TABLET 636961 ZOLPIDEM TARTRATE Inactive AMOXICILLIN 500 MG ORAL CAPSULE 2 po BID x 10 days 201 01/15/27 AMOXICILLIN 500 MG ORAL CAPSULE 630962 AMOXICILLIN Inactive AMOXICILLIN 500 MG ORAL CAPSULE 2 po BID x 14 days for H. Pylori AMOXICILLIN 500 MG ORAL CAPSULE 624510 AMOXICILLIN Inactive ANTIPYRINE-BENZOCAINE 5.4-1.4 % OTIC SOLUTION [...] twice daily CIPRO 500 MG ORAL TABLET 499710 CIPROFLOXACIN HCL Inactive CIPRO 500 MG ORAL TABLET 1 tablet by mouth twice daily CIPRO 500 MG ORAL TABLET 174825 CIPROFLOXACIN HCL Inactive CLARITIN 10 MG ORAL TABLET 1 tablet by mouth daily as needed for allergies CLARITIN 10 MG ORAL TABLET 790515 LORATADINE I nactive FIORICET 325-50-40 MG TAB 1 tablet by mouth four times daily as needed FIORICET 325-50-40 MG TAB ACETAMINOPHEN-C AFF-BUTALBITAL Inactive FLAGYL 500 MG ORAL TABLET 1 tablet by mouth bid 04/13 FLAGYL 500 MG ORAL TABLET 649421 METRONIDAZOLE Inactive FLAGYL 500 MG ORAL TABLET 1 tablet by mouth bid 08/29 FLAGYL 500 MG ORAL TABLET 136780 METRONIDAZOLE Inactive FUROSEMIDE 20 MG ORAL TABLET 1 daily for swelling 2018 FUROSEMIDE 20 MG ORAL TABLET 023122 FUROSEMIDE Inactive IBUPROFEN 800 MG ORAL TABLET 1 tab every 8 hours as needed for p ain IBUPROFEN 800 MG ORAL TABLET IBUPROFEN [place] ctive IBUPROFEN 800 MG ORAL TABLET 1 tab every 8 hours with food 03/20 IBUPROFEN 800 MG ORAL TABLET IBUPROFEN [place] ctive KLOR-CON 10 10 MEQ ORAL TABLET EXTENDED RELEASE 1 daily with furosemide KLOR-CON 10 10 MEQ ORAL TABLET EXTENDED RELEASE POTASSIUM CHLORIDE Inactive MAGNESIUM CITRATE 1.745 GM/30ML ORAL SOLUTION 150ml po BID P RN Constipation MAGNESIUM CITRATE 1.745 GM/30ML ORAL SOLUTION 10 78671 MAGNESIUM CITRATE Inactive METOCLOPRAMIDE HCL 10 MG ORAL TABLET take one PO tid PRN nausea METOCLOPRAMIDE HCL 10 MG ORAL TABLET 461685 METOCLOPRAM ZACH HCL Inactive PERCOCET 5-325 MG ORAL TABLET 1 tablet by mouth every 6 hour s as needed PERCOCET 5-325 MG ORAL TABLET 8765432 OXYCODONE-ACETAMINOPHEN Inactive PHENAZOPYRIDINE HCL 200 MG ORAL TABLET take 1 tab po TID for bladder pain PHENAZOPYRIDINE HCL 200 MG ORAL TABLET 6615959 PHENAZOPYRIDINE HCL Inactive PREDNISONE 20 MG ORAL TABLET 2 tabs daily for 3 days, 1 tab daily for 3 days, 1/2 tab daily for 2 days PREDNISONE 20 MG ORAL T ABLET 565212 PREDNISONE Inactive PREDNISONE 20 MG ORAL TABLET 2 tabs daily for 3 days, 1 tab daily for 3 days, 1/2 tab daily for 2 days PREDNISONE 20 MG ORAL T ABLET 854124 PREDNISONE Inactive PREDNISONE 20 MG ORAL TABLET 2 tabs daily for 3 days, 1 tab daily for 3 days, 1/2 tab daily for 2 days PREDNISONE 20 MG ORAL TABLET 084946 PREDNISONE Inactive PYRIDIUM 200 MG ORAL TABLET take 1 tab po TID prn urinary pain. PYRIDIUM 200 MG ORAL TABLET 3614862 PHENAZOPYRIDINE HCL Inactive REGLAN 10 MG ORAL TABLET 1 po TID PRN Nausea 3 REGLAN 10 MG ORAL TABLET 137741 METOCLOPRAMIDE HCL Inactive TRAZODONE HCL 100 MG ORAL TABLET 0.5 to 1 po qHS PRN Insomnia 20 30/07/08 TRAZODONE HCL 100 MG ORAL TABLET 997080 TRAZODONE HCL Inactive TRIAMCINOLONE ACETONIDE 0.1 % EXTERNAL OINTMENT Apply to affected areas TID for up to 2 weeks TRIAMCINOLONE ACETON ZACH 0.1 % EXTERNAL OINTMENT 6285166 TRIAMCINOLONE ACETONIDE Inactive XANAX 0.5 MG ORAL TABLET 1 po BID PRN anxiety XANAX 0.5 MG ORAL TABLET 519751 ALPRAZOLAM Inactive CLARITHROMYCIN 500 MG ORAL TABLET 1 tab po BID x 14 days CLARITHROMYCIN 500 MG ORAL TABLET 224182 CLARITHROMYCIN Inacti ve SIMVASTATIN 20 MG ORAL TABLET 1 po qd SIMVASTATIN 20 MG ORAL TABLET 561400 SIMVASTATIN Inactive LORTAB 5-500 MG ORAL TABLET 1/2 to 1 tablet by mouth e very 4 hours as needed for pain LORTAB 5-500 MG ORAL TABLET HYDROCODONE-ACETAMINOPHEN Inactive TERBINAFINE HCL 250 MG ORAL TABLET take one table PO one time da moises TERBINAFINE HCL 250 MG ORAL TABLET 541047 TERBINAFINE H CL Inactive SUMATRIPTAN SUCCINATE 100 MG ORAL TABLET Take one PRN for migran e SUMATRIPTAN SUCCINATE 100 MG ORAL TABLET 932196 SUMATRIPTAN SUCCINATE Inactive DIFLUCAN 150 MG ORAL TABLET 1 tablet by mouth if neede d, hold until symptoms start DIFLUCAN 150 MG ORAL TABLET 419747 FLUCONAZ OLE Inactive DIFLUCAN 150 MG ORAL TABLET 1 tablet by mouth qod 2015 DIFLUCAN 150 MG ORAL TABLET 025596 FLUCONAZOLE Inactive FLUCONAZOLE 150 MG ORAL TABLET take 1 tab po qday once FLUCONAZOLE 150 MG ORAL TABLET 356779 FLUCONAZOLE Inactive DICLOFENAC SODIUM 75 MG ORAL TABLET DELAYED RELEASE 1 tablet by mouth twice daily PRN Knee pain DICLOFENAC SODIUM 75 MG ORAL TABLET DELAYED RELEASE 988741 DICLOFENAC SODIUM Inactive PAROXETINE HCL 40 MG ORAL TABLET 1 po qd PAROXETINE HCL 40 MG ORAL TABLET 4027875 PAROXETINE HCL Inactive LAMISIL 250 MG ORAL TABLET 1 po qd L AMISIL 250 MG ORAL TABLET 336140 TERBINAFINE HCL Inactive HYDROCHLOROTHIAZIDE 12.5 MG ORAL CAPSULE 1 po qd PRN Edema 01/10 HYDROCHLOROTHIAZIDE 12.5 MG ORAL CAPSULE HYDROCH LOROTHIAZIDE Inactive AZITHROMYCIN 250 MG ORAL TABLET 2 po qd x 1 day, then 1 po q d x 4 days AZITHROMYCIN 250 MG ORAL TABLET 082368 AZITHROMY SPARKLE Inactive AZITHROMYCIN 250 MG ORAL TABLET 2 po qd x 1 day, then 1 po q d x 4 days AZITHROMYCIN 250 MG ORAL TABLET 618483 AZITHROMY SPARKLE Inactive AZITHROMYCIN 250 MG ORAL TABLET 2 po qd x 1 day, then 1 po q d x 4 days AZITHROMYCIN 250 MG ORAL TABLET 462819 AZITHROMY SPARKLE Inactive BACTROBAN 2 % EXTERNAL [...] po qd PRN Constipation MIRALAX ORAL POWDER 554480 POLYETHYLENE GLYCOL 3350 Inactive ONDANSETRON 8 MG ORAL TABLET DISINTEGRATING place one tablet on tongue and allow to dissolve every 6 hours as needed for vomitting ONDANSETRON 8 MG ORAL TABLET DISINTEGRATING 511520 ONDANSETRON Inactive PROTONIX 40 MG ORAL TABLET DELAYED RELEASE 1 pill by m outh daily, for acid reflux PROTONIX 40 MG ORAL TABLET DELAYED RELEAS E 637665 PANTOPRAZOLE SODIUM Inactive CONCERTA 18 MG ORAL TABLET EXTENDED RELEASE 1 po q a.m. CONCERTA 18 MG ORAL TABLET EXTENDED RELEASE METHYLPHENIDATE HCL Inactive COMPRO 25 MG RECTAL SUPPOSITORY insert or apply one garza ppository rectally as directed every 12 hours as needed for nausea COMPRO 25 MG RECTAL SUPPOSITORY 327436 PROCHLORPERAZINE Inactive ZITHROMAX Z-KARTHIK 250 MG ORAL TABLET 2 today, then 1 daily for 4 d ays ZITHROMAX Z-KARTHIK 250 MG ORAL TABLET 683506 AZITHROMYCIN Inactive FLONASE 50 MCG/ACT NASAL SUSPENSION 1 spray each nostril am and hs FLONASE 50 MCG/ACT NASAL SUSPENSION FLUTICASONE PROPIONATE I nactive PERCOCET 10-325 MG ORAL TABLET 1 tablet every 6 hours as needed for pain PERCOCET 10-325 MG ORAL TABLET 8975387 OXYCODONE-ACETAMI NOPHEN Inactive HYDROCODONE-ACETAMINOPHEN 5-325 MG ORAL TABLET 1 po q 6hr PRN Pa in HYDROCODONE-ACETAMINOPHEN 5-325 MG ORAL TABLET 457293 HYDROCODONE-ACETAMINOPHEN Inactive HYDROCODONE-ACETAMINOPHEN 5-325 MG ORAL TABLET 0.5 to 1 tab by mouth every 6 hours as needed HYDROCODONE-ACETAMIN OPHEN 5-325 MG ORAL TABLET 384879 HYDROCODONE-ACETAMINOPHEN Inactive HYDROCODONE-ACETAMINOPHEN 5-325 MG ORAL TABLET 1 tab b y mouth every 6 hours as needed HYDROCODONE-ACETAMINOPHEN 5-325 MG ORAL TABLET 080094 HYDROCODONE-ACETAMINOPHEN Inactive HYDROCODONE-ACETAMINOPHEN 5-325 MG ORAL TABLET 1/2 to 1 po q 4 hours prn cough HYDROCODONE-ACETAMINOPHEN 5-325 MG ORAL TABLET 8 45008 HYDROCODONE-ACETAMINOPHEN Inactive BUPROPION HCL ER (SR) 100 [...] FLUTICASONE PROPION ATE 50 MCG/ACT NASAL SUSPENSION 2486926 FLUTICASONE PROPIONATE Inactive FOCALIN XR 15 MG ORAL CAPSULE EXTENDED RELEASE 24 HOUR 1 po q a. m. FOCALIN XR 15 MG ORAL CAPSULE EXTENDED RELEASE 24 HOUR DEXMETHYLPHENIDATE HCL Inactive TRAVEL SICKNESS 25 MG ORAL TABLET CHEWABLE chew and sw allow one tablet every 6 hours as needed TRAVEL SICKNESS 25 M G ORAL TABLET CHEWABLE 225994 MECLIZINE HCL Inactive CHANTIX STARTING MONTH KARTHIK 0.5 MG X 11 & 1 MG X 42 ORA L TABLET 0.5mg daily for 3 days, then 0.5mg BID for 4 days, then 1mg BID CHANTIX STARTING MONTH KARHTIK 0.5 MG X 11 & 1 MG [...] Panel - Chemistry sodium, serum 142 mmol/L 116-446 7834/07/22 carbon dioxide, venous blood 26.3 mmol/L 21.0-32 [...] 0.80 mg/dL 0.00-1.00 cholesterol, serum 172 mg/dL 430-175 0644/07/22 triglyceride, serum, fasting 222 mg/dL 30-200 HDL [...] ative Encounters Code Encounter Date Provider Facility CPT-91575 Level 3 Est. Patient 09:11:53 CDT Radha VACA [facility] CPT-00473 Level 3 Est. Patient 16:46:51 CDT Thomas reynolds DO [facility] CPT-66024 [id number] Vst-Est Level III 14:40:49 CDT Paul Hamlin MD [facility] CPT-96843 Level 4 Est. Patient 11:08:43 CDT Checo Conklin MD [facility] CPT-86389 [id number] Vst-Est Level III 09:37:41 CDT Dangelo Rangel MD [facility] CPT-04029 Level 4 Est. Patient 08:57:51 MANAGER CONTINUOUS IMPROVEMENT Checo Conklin MD [facility] CPT-29475 Level 3 Est. Patient 11:24:55 MANAGER CONTINUOUS IMPROVEMENT Efren almendarez [facility] [place] CPT-64992 Level 3 Est. Patient 13:05:44 CDT Paul Hamlin MD [facility] CPT-05459 Level 3 Est. Patient 11:29:55 CDT Checo Conklin MD [facility] [id number] Level 4 Est. Patient 11:08:12 MANAGER CONTINUOUS IMPROVEMENT Checo Conklin MD [facility] CPT-32194 Level 4 Est. Patient 16:06:48 MANAGER CONTINUOUS IMPROVEMENT Checo Conklin MD [facility] CPT-97641 Level 3 Est. Patient 09:11:49 CDT Efren almendarez [facility] [place] CPT-26925 Level 2 Est. Patient 19:53:27 CDT Tanner hill MD [facility] [id number] Level 3 Est. Patient 09:15:34 CDT Efren almendarez [facility] [place] CPT-09562 Level 3 Est. Patient 11:28:51 MANAGER CONTINUOUS IMPROVEMENT Efren almendarez [facility] [place] CPT-32844 Level 4 Est. Patient 13:55:46 MANAGER CONTINUOUS IMPROVEMENT Checo Conklin MD [facility] CPT-97084 Level 4 Est. Patient 17:10:53 CDT Checo Conklin MD [facility] CPT-12895 Level 3 Est. Patient 15:56:22 CDT Checo Conklin MD [facility] CPT-17015 Level 3 Est. Patient 15:29:07 CDT Checo Conklin MD [facility] CPT-03827 Level 3 Est. Patient 14:38:41 CDT Checo Conklin MD [facility] CPT-48415 Level 3 Est. Patient 15:22:03 MANAGER CONTINUOUS IMPROVEMENT Thomas reynolds DO [facility] CPT-33517 Level 3 Est. Patient 13:34:17 MANAGER CONTINUOUS IMPROVEMENT Checo Conklin MD [facility] CPT-88820 Level 3 Est. Patient 12:29:32 CDT Dangelo arroyo MD [facility] CPT-52754 Level 3 Est. Patient 16:53:02 CDT Checo Conklin MD [facility] CPT-39307 Level 3 Est. Patient 16:37:13 CDT Checo Conklin MD [facility] CPT-12945 Level 3 Est. Patient 16:16:59 CDT Paul Hamlin MD [facility] CPT-61922 Level 3 Est. Patient 14:20:13 CDT Dangelo arroyo MD [facility] CPT-23375 Level 4 Est. Patient 11:29:33 CDT Checo Conklin MD [facility] CPT-98962 Level 3 Est. Patient 17:08:31 CDT Checo Conklin MD [facility] CPT-69385 Level 3 Est. Patient 16:50:42 MANAGER CONTINUOUS IMPROVEMENT Checo Conklin MD [facility] CPT-14417 Level 4 Est. Patient 09:26:08 MANAGER CONTINUOUS IMPROVEMENT Checo Conklin MD [facility] CPT-63399 Level 3 Est. Patient 11:37:10 CDT Checo Conklin MD [facility] CPT-76139 Level 4 Est. Patient 14:07:38 CDT Checo Conklin MD [facility] CPT-07540 Level 3 Est. Patient 09:54:41 CDT Checo Conklin MD [facility] CPT-09209 Level 3 Est. Patient 11:10:54 CDT Paul Hamlin MD [facility] CPT-80568 Level 3 Est. Patient 14:16:56 MANAGER CONTINUOUS IMPROVEMENT Checo Conklin MD [facility] CPT-80259 Level 3 Est. Patient 11:04:11 MANAGER CONTINUOUS IMPROVEMENT Checo Conklin MD [facility] CPT-12455 Level 3 Est. Patient 17:09:26 CDT Dangelo arroyo MD [facility] CPT-58753 Level 3 Est. Patient 16:54:37 CDT [facility] [facility] Procedures Code Procedure Name Date Entry Date Standard Desc ription CPT-80401 Abx/Therapy Injection 09:52:15 CDT CPT-10730 Abx/Therapy Injection 18:17:48 CDT CPT-J2550 Phenergan 25 mg (Promethazine) 16:48:23 CDT CPT-J1885 Toradol 60 mg 16:48:23 CDT CPT-81719 Wrist, right, comp 3V - XRAY USE ONLY 09:24:31 CDT CPT-11005 Abd compl w upright - XRAY USE ONLY 1 1:36:54 MANAGER CONTINUOUS IMPROVEMENT CPT-17539 UA w micro - LAB USE ONLY 17:06:46 CDT 2015 CPT-61334 [facility] Qual - LAB USE ONLY 17:06:46 CDT 05/06 CPT-98322 CMP - LAB USE ONLY 17:06:46 CDT CPT-73030 CBC with Diff - LAB USE ONLY 17:06:45 CDT 2 CPT-50287 Venipuncture Draw Fee 17:06:45 CDT CPT-LR Lesion Removal 19:53:27 CDT CPT-OV Office Visit 11:31:28 CDT CPT-07092 Tubersol 09:39:29 CDT CPT-J2550 Phenergan 25 mg (Promethazine) 13:59:02 MANAGER CONTINUOUS IMPROVEMENT CPT-J1885 Toradol 60 mg (Ketorolac) 13:59:02 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
--- OUTSIDE RECORDS SUMMARY | 2019-09-29 01:14 | XMS REPORT | Clinical Summary ---
Author Author Admin, Bethany Gonzales Organization [employer] Address Unknown Phone Unavailable Allergies, Adverse Reactions, [...] MD Acute pharyngitis Cough 786.2 Resolved Checo Conkiln MD Cough Pedal edema 782.3 Resolved Checo [...] Obesity, unspecified Body Mass Index 27.0-27.9 Adult Active 2017 Paul Hamlin MD Body Mass Index 27.0-27.9, adult Body Mass Index 26.0-26.9 Adult Active Br uce W Kendrick DO Body Mass Index 26.0-26.9, adult Wellness examination, routine medical V70.0 Active Radha Whitaker FRAMING MACHINE TENDER-C Routine general medical examination at a health care facility Hypertension 401.9 Active Radha Whitaker FRAMING MACHINE TENDER-C Unspecified essential hypertension Screening for cardiovascular condition V81.2 Active Radha Whitaker FRAMING MACHINE TENDER-C Screening for other and unspecified card iovascular conditions FH BREAST CANCER ICD-V16.3 Inactive Checo Joshua FH DIABETES ICD-V18.0 Inactive Checo Conklin MD 201 08/27/26 CONCUSSION ICD-850.9 Inactive Checo Joshua ABDOMINAL PAIN RIGHT LOWER QUADRANT ICD-789.03 Ozzy Conklin MD HEADACHE, TENSION ICD-307.81 Inactive Checo Conklin MD PHARYNGITIS ICD-462 Inactive Checo Conklin MD UTI ICD-599.0 Inactive Checo Conklin MD 2013 Hypoglycemia, unspecified ICD-251.2 Inactive Checo Conklin MD Insomnia ICD-780.52 Inactive Checo Joshua Breast mass, right ICD-611.72 Inactive Checo Conklin MD OTITIS MEDIA-RIGHT ICD-382.9 Inactive Checo Conklin MD Sinusitis ICD-461.9 Inactive Checo Conklin MD Onychomycosis, toenails ICD-110.1 Inactive Aracelis Conklin MD Carbuncle/furuncle NOS ICD-680.9 Inactive Hilaria Conklin MD BRONCHITIS, ACUTE ICD-466.0 Inactive Checo gallagher MD Abdominal pain ICD-789.00 Inactive Checo ngo MD Knee pain, right ICD-719.46 Inactive Checo gallagher MD Vertigo ICD-780.4 Inactive Checo Conklin MD 2014 Abscess, skin ICD-682.9 Inactive Checo richey MD Mastalgia ICD-611.71 Inactive Checo Joshua Insect bite ICD-919.4 Inactive Checo Conklin MD Cough ICD-786.2 Inactive Checo Conklin MD 2016 Pedal edema ICD-782.3 Inactive Checo Conklin MD 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 Checo Conklin MD Abdominal pain, generalized ICD-789.07 Inactive Checo Conklin MD Urinary frequency ICD-788.41 Inactive Checo Conklin MD Bacterial vaginosis ICD-616.10 Inactive Lenora Conklin MD Repeated falls ICD-781.99 Inactive Checo ngo MD Abdominal pain, generalized ICD-789.07 Inactive Checo Conklin MD Nausea ICD-787.02 Inactive Checo Conklin MD 201 02/15/12 Body Mass Index 25.0-25.9 Adult Inac tive Paul Hamlin MD Pharyngitis ICD-462 Inactive Checo Conklin MD Sinusitis, acute ICD-461.9 Inactive Checo Ortiz MD Medication List Medication Instructions Start Date Stop Date Generic Name NDC Status Provider Patient Instruction KLOR-CON 10 10 MEQ ORAL TABLET EXTENDED RELEASE 1 daily with furosemide POTASSIUM CHLORIDE 62842781945 Active Paul Hamlin MD Active FUROSEMIDE 20 MG ORAL TABLET 1 daily for swelling FUROSEMIDE 78254093715 Active Paul Hamlin MD Active HYDROCHLOROTHIAZIDE 12.5 MG ORAL CAPSULE 1 po qd PRN Edema 01/10 HYDROCHLOROTHIAZIDE 58487586256 No Longer Active Paul Hamlin MD Active IBUPROFEN 800 MG ORAL TABLET 1 tab every 8 hours as needed for p ain IBUPROFEN 19847830480 No Longer Active Paul Hamlin MD Active PAROXETINE HCL 40 MG ORAL TABLET 1 po qd PAR OXETINE HCL 18388075427 Active Checo Conklin MD Active MIRALAX ORAL POWDER 8.5 to 17g po qd PRN Constipation POLYETHYLENE GLYCOL 3350 85109754584 No Longer Active Checo Conklin MD Active PROTONIX 40 MG ORAL TABLET DELAYED RELEASE 1 pill by m outh daily, for acid reflux PANTOPRAZOLE SODIUM 63558725471 No Longer Activ e Corry Méndez, CRANBERRY BOG SUPERVISOR Active FLAGYL 500 MG ORAL TABLET 1 tablet by mouth bid 08/29 METRONIDAZOLE 99861141431 No Longer Active Corry Méndez CRANBERRY BOG SUPERVISOR Active CLARITHROMYCIN 500 MG ORAL TABLET 1 tab po BID x 14 days CLARITHROMYCIN 88786395638 No Longer Active Corry Méndez CRANBERRY BOG SUPERVISOR Active AMOXICILLIN 500 MG ORAL CAPSULE 2 po BID x 14 days for H. Pylori AMOXICILLIN 25669628416 No Longer Active Corry Méndez LPN Active FLUTICASONE PROPIONATE 50 MCG/ACT NASAL SUSPENSION 2 s prays/nostril qd PRN Congestion/Allergies FLUTICASONE PROPIONATE 1509498882 9 No Longer Active Checo Conklin MD Active AMOXICILLIN 500 MG ORAL CAPSULE 2 po BID x 10 days 201 01/15/27 AMOXICILLIN 06774448874 No Longer Active Checo Conklin MD Activ e CLARITIN 10 MG ORAL TABLET 1 tablet by mouth daily as needed for allergies LORATADINE 07001409766 No Longer Active Checo Ortiz MD Active BACTRIM DS 800-160 MG ORAL TABLET 1 tab by mouth twice daily 201 12/19/26 TRIMETHOPRIM-SULFAMETHOXAZOLE 69345809288 No Longer Active Ragini Carrillo MD Active DIFLUCAN 150 MG ORAL TABLET 1 tablet by mouth qod 2015 FLUCONAZOLE 96543957314 No Longer Active Efren Medel APRN Act mike AZITHROMYCIN 250 MG ORAL TABLET 2 po qd x 1 day, then 1 po q d x 4 days AZITHROMYCIN 38191336147 No Longer Active Efren flores FRAMING MACHINE TENDER Active FLAGYL 500 MG ORAL TABLET 1 tablet by mouth bid 04/13 METRONIDAZOLE 60426787514 No Longer Active Checo Conklin MD Acti ve FOCALIN XR 10 MG ORAL CAPSULE EXTENDED RELEASE 24 HOUR 1 po q a.m. DEXMETHYLPHENIDATE HCL 50919401217 Active Checo Conklin MD Active MAGNESIUM CITRATE 1.745 GM/30ML ORAL SOLUTION 150ml po BID P RN Constipation MAGNESIUM CITRATE 64570137242 No Longer Active Checo Conklin MD Active BACTROBAN 2 % EXTERNAL CREAM Apply to affected area BID for up to 10 days MUPIROCIN CALCIUM 20504495638 No Longer Active Checo Conklin MD Active HYDROCODONE-ACETAMINOPHEN 5-325 MG ORAL TABLET 1 tab b y mouth every 6 hours as needed HYDROCODONE-ACETAMINOPHEN 88503395392 No Longer Active Checo Coknlin MD Active IBUPROFEN 800 MG ORAL TABLET 1 tab every 8 hours with food 03/20 IBUPROFEN 59743473988 No Longer Active Checo Conklin MD Active DIFLUCAN 150 MG ORAL TABLET 1 tablet by mouth if neede d, hold until symptoms start FLUCONAZOLE 54232818387 No Longer Active Checo Conklin MD Active BACTRIM DS 800-160 MG ORAL TABLET 1 tab by mouth twice daily 201 11/23/03 TRIMETHOPRIM-SULFAMETHOXAZOLE 81574272669 No Longer Active Bonnie Méndez LPN Active HYDROCODONE-ACETAMINOPHEN 5-325 MG ORAL TABLET 0.5 to 1 tab by mouth every 6 hours as needed HYDROCODONE-ACETAMINOPHEN 51254171810 No Longer Active Checo Conklin MD Active ONDANSETRON 8 MG ORAL TABLET DISINTEGRATING place one tablet on tongue and allow to dissolve every 6 hours as needed for vomitting ONDANSETRON 53341579106 No Longer Active Checo Conklin MD Activ e COMPRO 25 MG RECTAL SUPPOSITORY insert or apply one garza ppository rectally as directed every 12 hours as needed for nausea PROCHLORPERAZINE 71884106268 No Longer Active Checo Conklin MD A ctive SUMATRIPTAN SUCCINATE 100 MG ORAL TABLET Take one PRN for migran e SUMATRIPTAN SUCCINATE 58785221360 No Longer Active Checo Conklin MD Active TRAVEL SICKNESS 25 MG ORAL TABLET CHEWABLE chew and sw allow one tablet every 6 hours as needed MECLIZINE HCL 82313196045 No Longer A ctive Checo Conklin MD Active BUPROPION HCL ER (SR) 100 MG ORAL TABLET EXTENDED RELE ASE 12 HOUR take one tablet by mouth one time daily for one week then take 1 two times daily BUPROPION HCL 63704874871 No Longer Active Checo gallagher MD Active TERBINAFINE HCL 250 MG ORAL TABLET take one table PO one time da moises TERBINAFINE HCL 19066986148 No Longer Active Checo Conklin MD Active METOCLOPRAMIDE HCL 10 MG ORAL TABLET take one PO tid PRN nausea METOCLOPRAMIDE HCL 11623992344 No Longer Active Checo Conklin MD Active DICLOFENAC SODIUM 75 MG ORAL TABLET DELAYED RELEASE 1 tablet by mouth twice daily PRN Knee pain DICLOFENAC SODIUM 73427782181 No Longer Active Checo Conklin MD Active LAMISIL 250 MG ORAL TABLET 1 po qd TERBINAFI NE HCL 23709811309 No Longer Active Checo Conklin MD Active REGLAN 10 MG ORAL TABLET 1 po TID PRN Nausea 3 METOCLOPRAMIDE HCL 82684895695 No Longer Active Checo Conklin MD Active CELEXA 20 MG ORAL TABLET 1 tablet by mouth daily 09/26 CITALOPRAM HYDROBROMIDE 09611335346 No Longer Active Checo Conklin MD Active AZITHROMYCIN 250 MG ORAL TABLET 2 po qd x 1 day, then 1 po q d x 4 days AZITHROMYCIN 64556492546 No Longer Active Checo Ortiz MD Active HYDROCODONE-ACETAMINOPHEN 5-325 MG ORAL TABLET 1 po q 6hr PRN Pa in HYDROCODONE-ACETAMINOPHEN 25356755150 No Longer Active Lenora Conklin MD Active PHENAZOPYRIDINE HCL 200 MG ORAL TABLET take 1 tab po TID for bladder pain PHENAZOPYRIDINE HCL 68703300843 No Longer Active Joe Conklin MD Active CIPRO 500 MG ORAL TABLET 1 tablet by mouth twice daily CIPROFLOXACIN HCL 67157632604 No Longer Active Dangelo Rangel MD Active HYDROCODONE-ACETAMINOPHEN 5-325 MG ORAL TABLET 1/2 to 1 po q 4 hours prn cough HYDROCODONE-ACETAMINOPHEN 31567865542 No Longer Activ e Dangelo Rangel MD Active BACTRIM DS 800-160 MG ORAL TABLET 1 po BID x 7 days 29/04/10 SULFAMETHOXAZOLE-TRIMETHOPRIM 13053349022 No Longer Active Checo Conklin MD Active PREDNISONE 20 MG ORAL TABLET 2 tabs daily for 3 days, 1 tab daily for 3 days, 1/2 tab daily for 2 days PREDNISONE 88329571015 No Longer Active Checo Conklin MD Active TRIAMCINOLONE ACETONIDE 0.1 % EXTERNAL OINTMENT Apply to affected areas TID for up to 2 weeks TRIAMCINOLONE ACETONIDE 58217054331 No Longer Active Checo Conklin MD Active CEFDINIR 300 MG ORAL CAPSULE by mouth twice a day 2013 CEFDINIR 60659828771 No Longer Active Dangelo Rangel MD Acti ve BUPROPION HCL ER (SMOKING DET) 150 MG ORAL TABLET EXTE NDED RELEASE 12 HOUR 1 a day for 1 week then 1 twice a day BUPROPION HCL (SMOKING DETER) 44106383044 No Longer Active Checo Conklin MD Active SIMVASTATIN 20 MG ORAL TABLET 1 po qd SIMVASTAT IN 86932097012 Active Checo Conklin MD Active CHANTIX STARTING MONTH KARTHIK 0.5 MG X 11 & 1 MG X 42 ORA L TABLET 0.5mg daily for 3 days, then 0.5mg BID for 4 days, then 1mg BID VARENICLINE TARTRATE 43752364762 No Longer Active Checo Conklin MD Activ e XANAX 0.5 MG ORAL TABLET 1 po BID PRN anxiety A LPRAZOLAM 89976196787 Active Checo Conklin MD Active CONCERTA 18 MG ORAL TABLET EXTENDED RELEASE 1 po q a.m. METHYLPHENIDATE HCL 21179561946 No Longer Active Checo Conklin MD Active AMBIEN 5 MG ORAL TABLET 1 po qHS PRN Insomnia Z OLPIDEM TARTRATE 09181234304 Active Checo Conklin MD Active TRAZODONE HCL 100 MG ORAL TABLET 0.5 to 1 po qHS PRN Insomnia 20 30/07/08 TRAZODONE HCL 15695492206 No Longer Active Checo Conklin MD Active FIORICET 325-50-40 MG TAB 1 tablet by mouth four times daily as needed [id number] 34365058427 No Longer Active Checo Conklin MD Active PHENERGAN CREAM* 25mg applied to wrist q6hr PRN Nausea PHENERGAN CREAM* No Longer Active Checo Conklin MD A ctive FLONASE 50 MCG/ACT NASAL SUSPENSION 1 spray each nostril am and hs FLUTICASONE PROPIONATE 03429351242 No Longer Active Checo Conklin MD Active ANTIPYRINE-BENZOCAINE 5.4-1.4 % OTIC SOLUTION 1-2 drops in affec yohannes ear BENZOCAINE-ANTIPYRINE 91236369545 No Longer Active Checo Conklin MD Active CEFDINIR 300 MG ORAL CAPSULE 1 po bid CEFDINIR 19211659263 No Longer Active Checo Conklin MD Active PREDNISONE 20 MG ORAL TABLET 2 tabs daily for 3 days, 1 tab daily for 3 days, 1/2 tab daily for 2 days PREDNISONE 22248164041 No Longer Active Checo Conklin MD Active AZITHROMYCIN 250 MG ORAL TABLET 2 po qd x 1 day, then 1 po q d x 4 days AZITHROMYCIN 65077603013 No Longer Active Checo Ortiz MD Active PREDNISONE 20 MG ORAL TABLET 2 tabs daily for 3 days, 1 tab daily for 3 days, 1/2 tab daily for 2 days PREDNISONE 18837433915 No Longer Active Checo Conklin MD Active ZITHROMAX Z-KARTHIK 250 MG ORAL TABLET 2 today, then 1 daily for 4 d ays AZITHROMYCIN 80031748247 No Longer Active Paul Hamlin MD Active FOCALIN XR 10 MG ORAL CAPSULE EXTENDED RELEASE 24 HOUR 1 po q a. m. DEXMETHYLPHENIDATE HCL 18829611889 No Longer Active Paul Hamlin MD Active PERCOCET 10-325 MG ORAL TABLET 1 tablet every 6 hours as needed for pain OXYCODONE-ACETAMINOPHEN 53011619507 No Longer Active Paul Hamlin MD Active LORTAB 5-500 MG ORAL TABLET 1/2 to 1 tablet by mouth e very 4 hours as needed for pain HYDROCODONE-ACETAMINOPHEN 09782090137 No Longer Active Checo Conklin MD Active FOCALIN XR 15 MG ORAL CAPSULE EXTENDED RELEASE 24 HOUR 1 po q a. m. DEXMETHYLPHENIDATE HCL 54446452048 No Longer Active Checo Conklin MD Active ZOFRAN ODT 4 MG ORAL TABLET DISINTEGRATING 1 po q6hr PRN Nausea ONDANSETRON 93508755358 No Longer Active Checo Conklin MD Active PERCOCET 5-325 MG ORAL TABLET 1 tablet by mouth every 6 hour s as needed OXYCODONE-ACETAMINOPHEN 46092645862 No Longer Active Checo Conklin MD Active PYRIDIUM 200 MG ORAL TABLET take 1 tab po TID prn urinary pain. PHENAZOPYRIDINE HCL 11995499425 No Longer Active Checo Joshua Active FLUCONAZOLE 150 MG ORAL TABLET take 1 tab po qday once FLUCONAZOLE 15554373731 No Longer Active Dangelo Rangel MD Acti ve CIPRO 500 MG ORAL TABLET 1 tablet by mouth twice daily CIPROFLOXACIN HCL 84583832271 No Longer Active Dangelo Rangel MD Active PHENERGAN CREAM* 25mg applied to wrist q6hr PRN Nausea PHENERGAN CREAM* Inactive AMOXICILLIN 500 MG ORAL CAPSULE 2 po BID x 10 days 201 01/15/27 AMOXICILLIN 500 MG ORAL CAPSULE 411454 AMOXICILLIN Inactive AMOXICILLIN 500 MG ORAL CAPSULE 2 po BID x 14 days for H. Pylori AMOXICILLIN 500 MG ORAL CAPSULE 752238 AMOXICILLIN Inactive ANTIPYRINE-BENZOCAINE 5.4-1.4 % OTIC SOLUTION [...] 12/19/26 BACTRIM DS 800-160 MG ORAL TABLET 357669 TRIMETHOPRIM-SULFAMETHOXAZOLE Inactive CIPRO 500 MG ORAL TABLET 1 tablet by mouth twice daily CIPRO 500 MG ORAL TABLET 240883 CIPROFLOXACIN HCL Inactive CIPRO 500 MG ORAL TABLET 1 tablet by mouth twice daily CIPRO 500 MG ORAL TABLET 131101 CIPROFLOXACIN HCL Inactive CLARITIN 10 MG ORAL TABLET 1 tablet by mouth daily as needed for allergies CLARITIN 10 MG ORAL TABLET 659498 LORATADINE I nactive FIORICET 325-50-40 MG TAB 1 tablet by mouth four times daily as needed FIORICET 325-50-40 MG TAB ACETAMINOPHEN-C AFF-BUTALBITAL Inactive FLAGYL 500 MG ORAL TABLET 1 tablet by mouth bid 04/13 FLAGYL 500 MG ORAL TABLET 836609 METRONIDAZOLE Inactive FLAGYL 500 MG ORAL TABLET 1 tablet by mouth bid 08/29 FLAGYL 500 MG ORAL TABLET 982223 METRONIDAZOLE Inactive IBUPROFEN 800 MG ORAL TABLET 1 tab every 8 hours as needed for p ain IBUPROFEN 800 MG ORAL TABLET 756861 IBUPROFEN Krupa ctive IBUPROFEN 800 MG ORAL TABLET 1 tab every 8 hours with food 03/20 IBUPROFEN 800 MG ORAL TABLET 115302 IBUPROFEN Krupa ctive MAGNESIUM CITRATE 1.745 GM/30ML ORAL SOLUTION 150ml po BID P RN Constipation MAGNESIUM CITRATE 1.745 GM/30ML ORAL SOLUTION 10 51927 MAGNESIUM CITRATE Inactive METOCLOPRAMIDE HCL 10 MG ORAL TABLET take one PO tid PRN nausea METOCLOPRAMIDE HCL 10 MG ORAL TABLET 211307 METOCLOPRAM ZACH HCL Inactive PERCOCET 5-325 MG ORAL TABLET 1 tablet by mouth every 6 hour s as needed PERCOCET 5-325 MG ORAL TABLET 7489192 OXYCODONE-ACETAMINOPHEN Inactive PHENAZOPYRIDINE HCL 200 MG ORAL TABLET take 1 tab po TID for bladder pain PHENAZOPYRIDINE HCL 200 MG ORAL TABLET 0008637 PHENAZOPYRIDINE HCL Inactive PREDNISONE 20 MG ORAL TABLET 2 tabs daily for 3 days, 1 tab daily for 3 days, 1/2 tab daily for 2 days PREDNISONE 20 MG ORAL T ABLET 882088 PREDNISONE Inactive PREDNISONE 20 MG ORAL TABLET 2 tabs daily for 3 days, 1 tab daily for 3 days, 1/2 tab daily for 2 days PREDNISONE 20 MG ORAL TABLET 595257 PREDNISONE Inactive PREDNISONE 20 MG ORAL TABLET 2 tabs daily for 3 days, 1 tab daily for 3 days, 1/2 tab daily for 2 days PREDNISONE 20 MG ORAL T ABLET 595826 PREDNISONE Inactive PYRIDIUM 200 MG ORAL TABLET take 1 tab po TID prn urinary pain. PYRIDIUM 200 MG ORAL TABLET 8526216 PHENAZOPYRIDINE HCL Inactive REGLAN 10 MG ORAL TABLET 1 po TID PRN Nausea 3 REGLAN 10 MG ORAL TABLET 374494 METOCLOPRAMIDE HCL Inactive TRAZODONE HCL 100 MG ORAL TABLET 0.5 to 1 po qHS PRN Insomnia 20 30/07/08 TRAZODONE HCL 100 MG ORAL TABLET 992441 TRAZODONE HCL Inactive TRIAMCINOLONE ACETONIDE 0.1 % EXTERNAL OINTMENT Apply to affected areas TID for up to 2 weeks TRIAMCINOLONE ACETON ZACH 0.1 % EXTERNAL OINTMENT 7490455 TRIAMCINOLONE ACETONIDE Inactive CLARITHROMYCIN 500 MG ORAL TABLET 1 tab po BID x 14 days CLARITHROMYCIN 500 MG ORAL TABLET 142478 CLARITHROMYCIN Inacti ve LORTAB 5-500 MG ORAL TABLET 1/2 to 1 tablet by mouth e very 4 hours as needed for pain LORTAB 5-500 MG ORAL TABLET HYDROCODONE-ACETAMINOPHEN Inactive TERBINAFINE HCL 250 MG ORAL TABLET take one table PO one time da moises TERBINAFINE HCL 250 MG ORAL TABLET 811191 TERBINAFINE H CL Inactive SUMATRIPTAN SUCCINATE 100 MG ORAL TABLET Take one PRN for migran e SUMATRIPTAN SUCCINATE 100 MG ORAL TABLET 975562 SUMATRIPTAN SUCCINATE Inactive DIFLUCAN 150 MG ORAL TABLET 1 tablet by mouth if neede d, hold until symptoms start DIFLUCAN 150 MG ORAL TABLET 258416 FLUCONAZ OLE Inactive DIFLUCAN 150 MG ORAL TABLET 1 tablet by mouth qod 2015 DIFLUCAN 150 MG ORAL TABLET 953919 FLUCONAZOLE Inactive FLUCONAZOLE 150 MG ORAL TABLET take 1 tab po qday once FLUCONAZOLE 150 MG ORAL TABLET 216854 FLUCONAZOLE Inactive DICLOFENAC SODIUM 75 MG ORAL TABLET DELAYED RELEASE 1 tablet by mouth twice daily PRN Knee pain DICLOFENAC SODIUM 75 MG ORAL TABLET DELAYED RELEASE 363815 DICLOFENAC SODIUM Inactive LAMISIL 250 MG ORAL TABLET 1 po qd L AMISIL 250 MG ORAL TABLET 012808 TERBINAFINE HCL Inactive HYDROCHLOROTHIAZIDE 12.5 MG ORAL CAPSULE 1 po qd PRN Edema 01/10 HYDROCHLOROTHIAZIDE 12.5 MG ORAL CAPSULE 608757 HYDROCH LOROTHIAZIDE Inactive AZITHROMYCIN 250 MG ORAL TABLET 2 po qd x 1 day, then 1 po q d x 4 days AZITHROMYCIN 250 MG ORAL TABLET 244494 AZITHROMY SPARKLE Inactive AZITHROMYCIN 250 MG ORAL TABLET 2 po qd x 1 day, then 1 po q d x 4 days AZITHROMYCIN 250 MG ORAL TABLET 476393 AZITHROMY SPARKLE Inactive AZITHROMYCIN 250 MG ORAL TABLET 2 po qd x 1 day, then 1 po q d x 4 days AZITHROMYCIN 250 MG ORAL TABLET 853473 AZITHROMY SPARKLE Inactive BACTROBAN 2 % EXTERNAL [...] daily 09/26 CELEXA 20 MG ORAL TABLET 700181 CITALOPRAM HYDROBROMIDE Inactive ZOFRAN ODT 4 MG ORAL TABLET DISINTEGRATING 1 po q6hr PRN Nausea ZOFRAN ODT 4 MG ORAL TABLET DISINTEGRATING ONDAN SETRON Inactive MIRALAX ORAL POWDER 8.5 to 17g po qd PRN Constipation MIRALAX ORAL POWDER 415675 POLYETHYLENE GLYCOL 3350 Inactive ONDANSETRON 8 MG ORAL TABLET DISINTEGRATING place one tablet on tongue and allow to dissolve every 6 hours as needed for vomitting ONDANSETRON 8 MG ORAL TABLET DISINTEGRATING 489018 ONDANSETRON Inactive PROTONIX 40 MG ORAL TABLET DELAYED RELEASE 1 pill by m outh daily, for acid reflux PROTONIX 40 MG ORAL TABLET DELAYED RELEAS E 868081 PANTOPRAZOLE SODIUM Inactive CONCERTA 18 MG ORAL TABLET EXTENDED RELEASE 1 po q a.m. CONCERTA 18 MG ORAL TABLET EXTENDED RELEASE METHYLPHENIDATE HCL Inactive COMPRO 25 MG RECTAL SUPPOSITORY insert or apply one garza ppository rectally as directed every 12 hours as needed for nausea COMPRO 25 MG RECTAL SUPPOSITORY 405856 PROCHLORPERAZINE Inactive ZITHROMAX Z-KARTHIK 250 MG ORAL TABLET 2 today, then 1 daily for 4 d ays ZITHROMAX Z-KARTHIK 250 MG ORAL TABLET 086904 AZITHROMYCIN Inactive FLONASE 50 MCG/ACT NASAL SUSPENSION 1 spray each nostril am and hs FLONASE 50 MCG/ACT NASAL SUSPENSION FLUTICASONE PROPIONATE I nactive PERCOCET 10-325 MG ORAL TABLET 1 tablet every 6 hours as needed for pain PERCOCET 10-325 MG ORAL TABLET 3109616 OXYCODONE-ACETAMI NOPHEN Inactive HYDROCODONE-ACETAMINOPHEN 5-325 MG ORAL TABLET 1 po q 6hr PRN Pa in HYDROCODONE-ACETAMINOPHEN 5-325 MG ORAL TABLET 323785 HYDROCODONE-ACETAMINOPHEN Inactive HYDROCODONE-ACETAMINOPHEN 5-325 MG ORAL TABLET 0.5 to 1 tab by mouth every 6 hours as needed HYDROCODONE-ACETAMIN OPHEN 5-325 MG ORAL TABLET 350091 HYDROCODONE-ACETAMINOPHEN Inactive HYDROCODONE-ACETAMINOPHEN 5-325 MG ORAL TABLET 1 tab b y mouth every 6 hours as needed HYDROCODONE-ACETAMINOPHEN 5-325 MG ORAL TABLET 911388 HYDROCODONE-ACETAMINOPHEN Inactive HYDROCODONE-ACETAMINOPHEN 5-325 MG ORAL TABLET 1/2 to 1 po q 4 hours prn cough HYDROCODONE-ACETAMINOPHEN 5-325 MG ORAL TABLET 8 35361 HYDROCODONE-ACETAMINOPHEN Inactive BUPROPION HCL ER (SR) 100 [...] FLUTICASONE PROPION ATE 50 MCG/ACT NASAL SUSPENSION 2731740 FLUTICASONE PROPIONATE Inactive FOCALIN XR 15 MG ORAL CAPSULE EXTENDED RELEASE 24 HOUR 1 po q a. m. FOCALIN XR 15 MG ORAL CAPSULE EXTENDED RELEASE 24 HOUR DEXMETHYLPHENIDATE HCL Inactive TRAVEL SICKNESS 25 MG ORAL TABLET CHEWABLE chew and sw allow one tablet every 6 hours as needed TRAVEL SICKNESS 25 M G ORAL TABLET CHEWABLE 227423 MECLIZINE HCL Inactive CHANTIX STARTING MONTH KARTHIK [...] Name Value Unit Range Description Lab Report: UADIP W/MICRO, AUTO - Chemis [...] Negative Encounters Code Encounter Date Provider Facility CPT-23308 Level 3 Est. Patient 09:11:53 CDT [facility] Level 3 Est[facility] Patient 16:46:51 CDT Thomas reynolds DO [facility] CPT-92813 [id number] Vst-Est Level III 14:40:49 CDT Paul Hamlin MD [facility] CPT-67927 Level 4 Est. Patient 11:08:43 CDT Checo Conklin MD [facility] CPT-57406 [id number] Vst-Est Level III 09:37:41 CDT Dangelo Rangel MD [facility] CPT-90450 Level 4 Est. Patient 08:57:51 TECHNICAL ADMINISTRATOR Checo Conklin MD [facility] CPT-41027 Level 3 Est. Patient 11:24:55 TECHNICAL ADMINISTRATOR [facility] Level 3 Est. Patient 13:05:44 CDT Paul Hamlin MD [facility] CPT-74296 Level 3 Est. Patient 11:29:55 CDT Checo Conklin MD [facility] CPT-61966 Level 4 Est. Patient 11:08:12 TECHNICAL ADMINISTRATOR Checo Conklin MD [facility] CPT-76606 Level 4 Est. Patient 16:06:48 TECHNICAL ADMINISTRATOR Checo Conklin MD [facility] CPT-54713 Level 3 Est. Patient 09:11:49 CDT Efren almendarez [facility] CPT-84273 Level 2 Est. Patient 19:53:27 CDT Tanner hill MD [facility] CPT-49761 Level 3 Est. Patient 09:15:34 CDT Efren almendarez [facility] CPT-88460 Level 3 Est. Patient 11:28:51 TECHNICAL ADMINISTRATOR Efren almendarez [facility] CPT-25451 Level 4 Est. Patient 13:55:46 TECHNICAL ADMINISTRATOR Checo Conklin MD [facility] CPT-47587 Level 4 Est. Patient 17:10:53 CDT Checo Conklin MD [facility] CPT-89901 Level 3 Est. Patient 15:56:22 CDT Checo Conklin MD [facility] CPT-56013 Level 3 Est. Patient 15:29:07 CDT Checo Conklin MD [facility] CPT-81415 Level 3 Est. Patient 14:38:41 CDT Checo Conklin MD [facility] CPT-90398 Level 3 Est. Patient 15:22:03 TECHNICAL ADMINISTRATOR Thomas reynolds DO [facility] CPT-80027 Level 3 Est. Patient 13:34:17 TECHNICAL ADMINISTRATOR Checo Conklin MD [facility] CPT-53410 Level 3 Est. Patient 12:29:32 CDT Dangelo arroyo MD [facility] CPT-32428 Level 3 Est. Patient 16:53:02 CDT Checo Conklin MD [facility] CPT-14664 Level 3 Est. Patient 16:37:13 CDT Checo Conklin MD [facility] CPT-26948 Level 3 Est. Patient 16:16:59 CDT Paul Hamlin MD [facility] CPT-48929 Level 3 Est. Patient 14:20:13 CDT Dangelo arroyo MD [facility] CPT-63691 Level 4 Est. Patient 11:29:33 CDT Checo Conklin MD [facility] CPT-08485 Level 3 Est. Patient 17:08:31 CDT Checo Conklin MD [facility] CPT-12789 Level 3 Est. Patient 16:50:42 TECHNICAL ADMINISTRATOR Checo Conklin MD [facility] CPT-30208 Level 4 Est. Patient 09:26:08 TECHNICAL ADMINISTRATOR Checo Conklin MD [facility] CPT-80210 Level 3 Est. Patient 11:37:10 CDT Checo Conklin MD [facility] CPT-42889 Level 4 Est. Patient 14:07:38 CDT Checo Conklin MD [facility] CPT-74679 Level 3 Est. Patient 09:54:41 CDT Cheoc Conklin MD [facility] CPT-64321 Level 3 Est. Patient 11:10:54 CDT Paul Hamlin MD [facility] CPT-91689 Level 3 Est. Patient 14:16:56 TECHNICAL ADMINISTRATOR Checo Conklin MD [facility] CPT-41824 Level 3 Est. Patient 11:04:11 TECHNICAL ADMINISTRATOR Checo Conklin MD [facility] CPT-84628 Level 3 Est. Patient 17:09:26 CDT Dangelo arroyo MD [facility] CPT-18543 Level 3 Est. Patient 16:54:37 CDT Checo Conklin MD [facility] Procedures Code Procedure Name Date Entry Date Standard Desc ription CPT-43012 Abx/Therapy Injection 09:52:15 CDT CPT-64136 Abx/Therapy Injection 18:17:48 CDT CPT-J2550 Phenergan 25 mg (Promethazine) 16:48:23 CDT CPT-J1885 Toradol 60 mg 16:48:23 CDT CPT-54629 Wrist, right, comp 3V - XRAY USE ONLY 09:24:31 CDT CPT-73103 Abd compl w upright - XRAY USE ONLY 1 1:36:54 TECHNICAL ADMINISTRATOR CPT-75114 UA w micro - LAB USE ONLY 17:06:46 CDT 2015 CPT-31895 [facility] Qual - LAB USE ONLY 17:06:46 CDT 05/06 CPT-27388 CMP - LAB USE ONLY 17:06:46 CDT CPT-02927 CBC with Diff - LAB USE ONLY 17:06:45 CDT 2 CPT-01313 Venipuncture Draw Fee 17:06:45 CDT CPT-LR Lesion Removal 19:53:27 CDT CPT-OV Office Visit 11:31:28 CDT CPT-47106 Tubersol 09:39:29 CDT CPT-J2550 Phenergan 25 mg (Promethazine) 13:59:02 TECHNICAL ADMINISTRATOR CPT-J1885 Toradol 60 mg (Ketorolac) 13:59:02 TECHNICAL ADMINISTRATOR 2012
--- OUTSIDE RECORDS SUMMARY | 2019-09-29 01:14 | XMS REPORT | Clinical Summary ---
Author Author Admin, Bethany Ayala [employer] Address Unknown Phone Unavailable Allergies, Adverse Reactions, [...] Index 27.0-27.9 Adult Resolved 2018 Radha Whitaker [employer] Body Mass Index 27.0-27.9, adult Body Mass Index 26.0-26.9 Adult Refinement 2017 Thomas Marks DO Body Mass Index 26.0-26.9, adult BMI 25-25.9 Active Radha Whitaker [employer] Body Mass Index 26.0-26.9, adult Wellness examination, [...] CAPSULE 1 PO Daily FLUOXETINE H CL 85265435051 Active Radha Sherman [employer] Active VYVANSE 30 MG ORAL CAPSULE 1 PO daily LISDEXAMF ETAMINE DIMESYLATE 23857942479 Active Radha Sherman [employer] Active XANAX 0.5 MG ORAL TABLET 1 tablet PO BID; PRN A LPRAZOLAM 78247207018 Active Radha Sherman [employer] Active SIMVASTATIN 20 MG ORAL TABLET 1 tablet PO daily SI MVASTATIN 45368611294 Active Radha Sherman [employer] Active IBUPROFEN 800 MG ORAL TABLET 1 tablet PO q8hr PRN IBUPROFEN 99191798804 Active Radha Sherman [employer] Active AMBIEN 5 MG ORAL TABLET 1 tablet PO once daily; PRN ZOLPIDEM TARTRATE 78292334050 Active Radha Sherman [employer] Active ALBUTEROL SULFATE HFA 108 (90 BASE) MCG/ACT INHALATION AEROSOL SOLUTION 2 puffs, INH, q4hr PRN ALBUTEROL SULFATE 27823944622 Active Radha Whitaker A REFUGION-C Active AMBIEN 5 MG ORAL TABLET 1 po qHS PRN Insomnia ZOLPIDEM TARTRATE 46903912367 No Longer Active Radha Whitaker APRN-C Active XANAX 0.5 MG ORAL TABLET 1 po BID PRN anxiety A LPRAZOLAM 13669272419 No Longer Active Radha Whitaker APRN-C Active PAROXETINE HCL 40 MG ORAL TABLET 1 po qd PAR OXETINE HCL 48258739229 No Longer Active Radha Whitaker APRN-C Active FOCALIN XR 10 MG ORAL CAPSULE EXTENDED RELEASE 24 HOUR 1 po q a. m. DEXMETHYLPHENIDATE HCL 59017011709 No Longer Active Radha Low APRN-C Active SIMVASTATIN 20 MG ORAL TABLET 1 po qd SIMVAS TATIN 38262210390 No Longer Active Radha Whitaker APRNMattC Active FUROSEMIDE 20 MG ORAL TABLET 1 daily for swelling 2018 FUROSEMIDE 99828962528 No Longer Active Radha VACA Active KLOR-CON 10 10 MEQ ORAL TABLET EXTENDED RELEASE 1 daily with furosemide POTASSIUM CHLORIDE 68910427938 No Longer Active Radha CHEWC Active HYDROCHLOROTHIAZIDE 12.5 MG ORAL CAPSULE 1 po qd PRN Edema 01/10 HYDROCHLOROTHIAZIDE 65820724492 No Longer Active Paul Hamlin MD Active IBUPROFEN 800 MG ORAL TABLET 1 tab every 8 hours as needed for p ain IBUPROFEN 80844139254 No Longer Active Paul Hamlin MD Active MIRALAX ORAL POWDER 8.5 to 17g po qd PRN Constipation POLYETHYLENE GLYCOL 3350 90098929814 No Longer Active Checo Conklin MD Active PROTONIX 40 MG ORAL TABLET DELAYED RELEASE 1 pill by m outh daily, for acid reflux PANTOPRAZOLE SODIUM 48348372973 No Longer Activ e Corry Méndez, TOXICOLOGIST Active FLAGYL 500 MG ORAL TABLET 1 tablet by mouth bid 08/29 METRONIDAZOLE 18196673915 No Longer Active Corry Méndez, TOXICOLOGIST Active CLARITHROMYCIN 500 MG ORAL TABLET 1 tab po BID x 14 days CLARITHROMYCIN 55935738655 No Longer Active Corry Méndez TOXICOLOGIST Active AMOXICILLIN 500 MG ORAL CAPSULE 2 po BID x 14 days for H. Pylori AMOXICILLIN 72058375938 No Longer Active Corry Méndez TOXICOLOGIST Active FLUTICASONE PROPIONATE 50 MCG/ACT NASAL SUSPENSION 2 s prays/nostril qd PRN Congestion/Allergies FLUTICASONE PROPIONATE 1766684014 9 No Longer Active Checo Conklin MD Active AMOXICILLIN 500 MG ORAL CAPSULE 2 po BID x 10 days 201 01/15/27 AMOXICILLIN 13739184458 No Longer Active Checo Conklin MD Activ e CLARITIN 10 MG ORAL TABLET 1 tablet by mouth daily as needed for allergies LORATADINE 64331451686 No Longer Active Checo Ortiz MD Active BACTRIM DS 800-160 MG ORAL TABLET 1 tab by mouth twice daily 201 12/19/26 TRIMETHOPRIM-SULFAMETHOXAZOLE 41351117150 No Longer Active Ragini Carrillo MD Active DIFLUCAN 150 MG ORAL TABLET 1 tablet by mouth qod 2015 FLUCONAZOLE 00177567933 No Longer Active Efren Medel APRN Act mike AZITHROMYCIN 250 MG ORAL TABLET 2 po qd x 1 day, then 1 po q d x 4 days AZITHROMYCIN 16340250107 No Longer Active Efren flores APRN Active FLAGYL 500 MG ORAL TABLET 1 tablet by mouth bid 04/13 METRONIDAZOLE 12764543250 No Longer Active Checo Conklin MD Acti ve MAGNESIUM CITRATE 1.745 GM/30ML ORAL SOLUTION 150ml po BID P RN Constipation MAGNESIUM CITRATE 77079520434 No Longer Active Checo Conklin MD Active BACTROBAN 2 % EXTERNAL CREAM Apply to affected area BID for up to 10 days MUPIROCIN CALCIUM 79712551490 No Longer Active Checo Conklin MD Active HYDROCODONE-ACETAMINOPHEN 5-325 MG ORAL TABLET 1 tab b y mouth every 6 hours as needed HYDROCODONE-ACETAMINOPHEN 81822244944 No Longer Active Checo Conklin MD Active IBUPROFEN 800 MG ORAL TABLET 1 tab every 8 hours with food 03/20 IBUPROFEN 10679031810 No Longer Active Checo Conklin MD Active DIFLUCAN 150 MG ORAL TABLET 1 tablet by mouth if neede d, hold until symptoms start FLUCONAZOLE 72760509161 No Longer Active Checo Conklin MD Active BACTRIM DS 800-160 MG ORAL TABLET 1 tab by mouth twice daily 201 11/23/03 TRIMETHOPRIM-SULFAMETHOXAZOLE 41614939874 No Longer Active K bernice Méndez LPN Active HYDROCODONE-ACETAMINOPHEN 5-325 MG ORAL TABLET 0.5 to 1 tab by mouth every 6 hours as needed HYDROCODONE-ACETAMINOPHEN 84361637067 No Longer Active Checo Conklin MD Active ONDANSETRON 8 MG ORAL TABLET DISINTEGRATING place one tablet on tongue and allow to dissolve every 6 hours as needed for vomitting ONDANSETRON 10994095735 No Longer Active Checo Conklin MD Activ e COMPRO 25 MG RECTAL SUPPOSITORY insert or apply one garza ppository rectally as directed every 12 hours as needed for nausea PROCHLORPERAZINE 47698612114 No Longer Active Checo Conklin MD A ctive SUMATRIPTAN SUCCINATE 100 MG ORAL TABLET Take one PRN for migran e SUMATRIPTAN SUCCINATE 06423548330 No Longer Active Checo Conklin MD Active TRAVEL SICKNESS 25 MG ORAL TABLET CHEWABLE chew and sw allow one tablet every 6 hours as needed MECLIZINE HCL 02498521121 No Longer A ctive Checo Conklin MD Active BUPROPION HCL ER (SR) 100 MG ORAL TABLET EXTENDED RELE ASE 12 HOUR take one tablet by mouth one time daily for one week then take 1 two times daily BUPROPION HCL 72643801995 No Longer Active Checo gallagher MD Active TERBINAFINE HCL 250 MG ORAL TABLET take one table PO one time da moises TERBINAFINE HCL 41752968253 No Longer Active Checo Conklin MD Active METOCLOPRAMIDE HCL 10 MG ORAL TABLET take one PO tid PRN nausea METOCLOPRAMIDE HCL 33906494564 No Longer Active Checo Conklin MD Active DICLOFENAC SODIUM 75 MG ORAL TABLET DELAYED RELEASE 1 tablet by mouth twice daily PRN Knee pain DICLOFENAC SODIUM 82681033798 No Longer Active Checo Conklin MD Active LAMISIL 250 MG ORAL TABLET 1 po qd TERBINAFI NE HCL 20804752774 No Longer Active Checo Conklin MD Active REGLAN 10 MG ORAL TABLET 1 po TID PRN Nausea 3 METOCLOPRAMIDE HCL 38050979271 No Longer Active Checo Conklin MD Active CELEXA 20 MG ORAL TABLET 1 tablet by mouth daily 09/26 CITALOPRAM HYDROBROMIDE 63203335792 No Longer Active Checo Conklin MD Active AZITHROMYCIN 250 MG ORAL TABLET 2 po qd x 1 day, then 1 po q d x 4 days AZITHROMYCIN 26744548406 No Longer Active Checo Ortiz MD Active HYDROCODONE-ACETAMINOPHEN 5-325 MG ORAL TABLET 1 po q 6hr PRN Pa in HYDROCODONE-ACETAMINOPHEN 95460393354 No Longer Active Lenora Conklin MD Active PHENAZOPYRIDINE HCL 200 MG ORAL TABLET take 1 tab po TID for bladder pain PHENAZOPYRIDINE HCL 50010290690 No Longer Active Joe Conklin MD Active CIPRO 500 MG ORAL TABLET 1 tablet by mouth twice daily CIPROFLOXACIN HCL 12914631013 No Longer Active Dangelo Rangel MD Active HYDROCODONE-ACETAMINOPHEN 5-325 MG ORAL TABLET 1/2 to 1 po q 4 hours prn cough HYDROCODONE-ACETAMINOPHEN 39792195305 No Longer Activ e Dangelo Rangel MD Active BACTRIM DS 800-160 MG ORAL TABLET 1 po BID x 7 days 29/04/10 SULFAMETHOXAZOLE-TRIMETHOPRIM 33559781750 No Longer Active Checo Conklin MD Active PREDNISONE 20 MG ORAL TABLET 2 tabs daily for 3 days, 1 tab daily for 3 days, 1/2 tab daily for 2 days PREDNISONE 50203865777 No Longer Active Checo Conklin MD Active TRIAMCINOLONE ACETONIDE 0.1 % EXTERNAL OINTMENT Apply to affected areas TID for up to 2 weeks TRIAMCINOLONE ACETONIDE 67489836677 No Longer Active Checo Conklin MD Active CEFDINIR 300 MG ORAL CAPSULE by mouth twice a day 2013 CEFDINIR 69864174707 No Longer Active Dangelo Rangel MD Acti ve BUPROPION HCL ER (SMOKING DET) 150 MG ORAL TABLET EXTE NDED RELEASE 12 HOUR 1 a day for 1 week then 1 twice a day BUPROPION HCL (SMOKING DETER) 47860247692 No Longer Active Checo Conklin MD Active CHANTIX STARTING MONTH KARTHIK 0.5 MG X 11 & 1 MG X 42 ORA L TABLET 0.5mg daily for 3 days, then 0.5mg BID for 4 days, then 1mg BID VARENICLINE TARTRATE 12563701545 No Longer Active Checo Conklin MD Activ e CONCERTA 18 MG ORAL TABLET EXTENDED RELEASE 1 po q a.m. METHYLPHENIDATE HCL 36686510353 No Longer Active Chceo Conklin MD Active TRAZODONE HCL 100 MG ORAL TABLET 0.5 to 1 po qHS PRN Insomnia 20 30/07/08 TRAZODONE HCL 82254152076 No Longer Active Checo Conklin MD Active FIORICET 325-50-40 MG TAB 1 tablet by mouth four times daily as needed [id number] 29632240856 No Longer Active Checo Conklin MD Active PHENERGAN CREAM* 25mg applied to wrist q6hr PRN Nausea PHENERGAN CREAM* No Longer Active Checo Conklin MD A ctive FLONASE 50 MCG/ACT NASAL SUSPENSION 1 spray each nostril am and hs FLUTICASONE PROPIONATE 71836283706 No Longer Active Checo Conklin MD Active ANTIPYRINE-BENZOCAINE 5.4-1.4 % OTIC SOLUTION 1-2 drops in affec yohannes ear BENZOCAINE-ANTIPYRINE 31702606521 No Longer Active Checo Conklin MD Active CEFDINIR 300 MG ORAL CAPSULE 1 po bid CEFDINIR 84597411851 No Longer Active Checo Conklin MD Active PREDNISONE 20 MG ORAL TABLET 2 tabs daily for 3 days, 1 tab daily for 3 days, 1/2 tab daily for 2 days PREDNISONE 66332479511 No Longer Active Checo Conklin MD Active AZITHROMYCIN 250 MG ORAL TABLET 2 po qd x 1 day, then 1 po q d x 4 days AZITHROMYCIN 23368026259 No Longer Active Checo Ortiz MD Active PREDNISONE 20 MG ORAL TABLET 2 tabs daily for 3 days, 1 tab daily for 3 days, 1/2 tab daily for 2 days PREDNISONE 35227650877 No Longer Active Checo Conklin MD Active ZITHROMAX Z-KARTHIK 250 MG ORAL TABLET 2 today, then 1 daily for 4 d ays AZITHROMYCIN 41842459488 No Longer Active Paul Hamlin MD Active FOCALIN XR 10 MG ORAL CAPSULE EXTENDED RELEASE 24 HOUR 1 po q a. m. DEXMETHYLPHENIDATE HCL 66484355078 No Longer Active Paul Hamlin MD Active PERCOCET 10-325 MG ORAL TABLET 1 tablet every 6 hours as needed for pain OXYCODONE-ACETAMINOPHEN 98744887049 No Longer Active Paul Hamlin MD Active LORTAB 5-500 MG ORAL TABLET 1/2 to 1 tablet by mouth e very 4 hours as needed for pain HYDROCODONE-ACETAMINOPHEN 33075172173 No Longer Active Checo Conklin MD Active FOCALIN XR 15 MG ORAL CAPSULE EXTENDED RELEASE 24 HOUR 1 po q a. m. DEXMETHYLPHENIDATE HCL 81596370384 No Longer Active Checo Conklin MD Active ZOFRAN ODT 4 MG ORAL TABLET DISINTEGRATING 1 po q6hr PRN Nausea ONDANSETRON 90567994236 No Longer Active Checo Conklin MD Active PERCOCET 5-325 MG ORAL TABLET 1 tablet by mouth every 6 hour s as needed OXYCODONE-ACETAMINOPHEN 66084271107 No Longer Active Checo Conklin MD Active PYRIDIUM 200 MG ORAL TABLET take 1 tab po TID prn urinary pain. PHENAZOPYRIDINE HCL 01351597773 No Longer Active Checo Joshua Active FLUCONAZOLE 150 MG ORAL TABLET take 1 tab po qday once FLUCONAZOLE 50774965640 No Longer Active Dangelo Rangel MD Acti ve CIPRO 500 MG ORAL TABLET 1 tablet by mouth twice daily CIPROFLOXACIN HCL 03621794729 No Longer Active Dangelo Rangel MD Active PHENERGAN CREAM* 25mg applied to wrist q6hr PRN Nausea PHENERGAN CREAM* Inactive AMBIEN 5 MG ORAL TABLET 1 po qHS PRN Insomnia AMBIEN 5 MG ORAL TABLET 270432 ZOLPIDEM TARTRATE Inactive AMOXICILLIN 500 MG ORAL CAPSULE 2 po BID x 10 days 201 01/15/27 AMOXICILLIN 500 MG ORAL CAPSULE 374269 AMOXICILLIN Inactive AMOXICILLIN 500 MG ORAL CAPSULE 2 po BID x 14 days for H. Pylori AMOXICILLIN 500 MG ORAL CAPSULE 594058 AMOXICILLIN Inactive ANTIPYRINE-BENZOCAINE 5.4-1.4 % OTIC SOLUTION [...] twice daily CIPRO 500 MG ORAL TABLET 477988 CIPROFLOXACIN HCL Inactive CIPRO 500 MG ORAL TABLET 1 tablet by mouth twice daily CIPRO 500 MG ORAL TABLET 321618 CIPROFLOXACIN HCL Inactive CLARITIN 10 MG ORAL TABLET 1 tablet by mouth daily as needed for allergies CLARITIN 10 MG ORAL TABLET 524098 LORATADINE I nactive FIORICET 325-50-40 MG TAB 1 tablet by mouth four times daily as needed FIORICET 325-50-40 MG TAB ACETAMINOPHEN-C AFF-BUTALBITAL Inactive FLAGYL 500 MG ORAL TABLET 1 tablet by mouth bid 04/13 FLAGYL 500 MG ORAL TABLET 332942 METRONIDAZOLE Inactive FLAGYL 500 MG ORAL TABLET 1 tablet by mouth bid 08/29 FLAGYL 500 MG ORAL TABLET 612867 METRONIDAZOLE Inactive FUROSEMIDE 20 MG ORAL TABLET 1 daily for swelling 2018 FUROSEMIDE 20 MG ORAL TABLET 455571 FUROSEMIDE Inactive IBUPROFEN 800 MG ORAL TABLET 1 tab every 8 hours as needed for p ain IBUPROFEN 800 MG ORAL TABLET IBUPROFEN Krupa ctive IBUPROFEN 800 MG ORAL TABLET 1 tab every 8 hours with food 03/20 IBUPROFEN 800 MG ORAL TABLET IBUPROFEN Finley ctive KLOR-CON 10 10 MEQ ORAL TABLET EXTENDED RELEASE 1 daily with furosemide KLOR-CON 10 10 MEQ ORAL TABLET EXTENDED RELEASE POTASSIUM CHLORIDE Inactive MAGNESIUM CITRATE 1.745 GM/30ML ORAL SOLUTION 150ml po BID P RN Constipation MAGNESIUM CITRATE 1.745 GM/30ML ORAL SOLUTION 10 38329 MAGNESIUM CITRATE Inactive METOCLOPRAMIDE HCL 10 MG ORAL TABLET take one PO tid PRN nausea METOCLOPRAMIDE HCL 10 MG ORAL TABLET 545156 METOCLOPRAM ZACH HCL Inactive PERCOCET 5-325 MG ORAL TABLET 1 tablet by mouth every 6 hour s as needed PERCOCET 5-325 MG ORAL TABLET 5699588 OXYCODONE-ACETAMINOPHEN Inactive PHENAZOPYRIDINE HCL 200 MG ORAL TABLET take 1 tab po TID for bladder pain PHENAZOPYRIDINE HCL 200 MG ORAL TABLET 8651993 PHENAZOPYRIDINE HCL Inactive PREDNISONE 20 MG ORAL TABLET 2 tabs daily for 3 days, 1 tab daily for 3 days, 1/2 tab daily for 2 days PREDNISONE 20 MG ORAL T ABLET 555961 PREDNISONE Inactive PREDNISONE 20 MG ORAL TABLET 2 tabs daily for 3 days, 1 tab daily for 3 days, 1/2 tab daily for 2 days PREDNISONE 20 MG ORAL T ABLET 785637 PREDNISONE Inactive PREDNISONE 20 MG ORAL TABLET 2 tabs daily for 3 days, 1 tab daily for 3 days, 1/2 tab daily for 2 days PREDNISONE 20 MG ORAL TABLET 947438 PREDNISONE Inactive PYRIDIUM 200 MG ORAL TABLET take 1 tab po TID prn urinary pain. PYRIDIUM 200 MG ORAL TABLET 6436656 PHENAZOPYRIDINE HCL Inactive REGLAN 10 MG ORAL TABLET 1 po TID PRN Nausea 3 REGLAN 10 MG ORAL TABLET 977600 METOCLOPRAMIDE HCL Inactive TRAZODONE HCL 100 MG ORAL TABLET 0.5 to 1 po qHS PRN Insomnia 20 30/07/08 TRAZODONE HCL 100 MG ORAL TABLET 010866 TRAZODONE HCL Inactive TRIAMCINOLONE ACETONIDE 0.1 % EXTERNAL OINTMENT Apply to affected areas TID for up to 2 weeks TRIAMCINOLONE ACETON ZACH 0.1 % EXTERNAL OINTMENT 8410336 TRIAMCINOLONE ACETONIDE Inactive XANAX 0.5 MG ORAL TABLET 1 po BID PRN anxiety XANAX 0.5 MG ORAL TABLET 502388 ALPRAZOLAM Inactive CLARITHROMYCIN 500 MG ORAL TABLET 1 tab po BID x 14 days CLARITHROMYCIN 500 MG ORAL TABLET 298883 CLARITHROMYCIN Inacti ve SIMVASTATIN 20 MG ORAL TABLET 1 po qd SIMVASTATIN 20 MG ORAL TABLET 170806 SIMVASTATIN Inactive LORTAB 5-500 MG ORAL TABLET 1/2 to 1 tablet by mouth e very 4 hours as needed for pain LORTAB 5-500 MG ORAL TABLET HYDROCODONE-ACETAMINOPHEN Inactive TERBINAFINE HCL 250 MG ORAL TABLET take one table PO one time da moises TERBINAFINE HCL 250 MG ORAL TABLET 343262 TERBINAFINE H CL Inactive SUMATRIPTAN SUCCINATE 100 MG ORAL TABLET Take one PRN for migran e SUMATRIPTAN SUCCINATE 100 MG ORAL TABLET 745438 SUMATRIPTAN SUCCINATE Inactive DIFLUCAN 150 MG ORAL TABLET 1 tablet by mouth if neede d, hold until symptoms start DIFLUCAN 150 MG ORAL TABLET 816669 FLUCONAZ OLE Inactive DIFLUCAN 150 MG ORAL TABLET 1 tablet by mouth qod 2015 DIFLUCAN 150 MG ORAL TABLET 915058 FLUCONAZOLE Inactive FLUCONAZOLE 150 MG ORAL TABLET take 1 tab po qday once FLUCONAZOLE 150 MG ORAL TABLET 108338 FLUCONAZOLE Inactive DICLOFENAC SODIUM 75 MG ORAL TABLET DELAYED RELEASE 1 tablet by mouth twice daily PRN Knee pain DICLOFENAC SODIUM 75 MG ORAL TABLET DELAYED RELEASE 592084 DICLOFENAC SODIUM Inactive PAROXETINE HCL 40 MG ORAL TABLET 1 po qd PAROXETINE HCL 40 MG ORAL TABLET 2960947 PAROXETINE HCL Inactive LAMISIL 250 MG ORAL TABLET 1 po qd L AMISIL 250 MG ORAL TABLET 851431 TERBINAFINE HCL Inactive HYDROCHLOROTHIAZIDE 12.5 MG ORAL CAPSULE 1 po qd PRN Edema 01/10 HYDROCHLOROTHIAZIDE 12.5 MG ORAL CAPSULE HYDROCH LOROTHIAZIDE Inactive AZITHROMYCIN 250 MG ORAL TABLET 2 po qd x 1 day, then 1 po q d x 4 days AZITHROMYCIN 250 MG ORAL TABLET 616082 AZITHROMY SPARKLE Inactive AZITHROMYCIN 250 MG ORAL TABLET 2 po qd x 1 day, then 1 po q d x 4 days AZITHROMYCIN 250 MG ORAL TABLET 721939 AZITHROMY SPARKLE Inactive AZITHROMYCIN 250 MG ORAL TABLET 2 po qd x 1 day, then 1 po q d x 4 days AZITHROMYCIN 250 MG ORAL TABLET 348392 AZITHROMY SPARKLE Inactive BACTROBAN 2 % EXTERNAL [...] po qd PRN Constipation MIRALAX ORAL POWDER 726324 POLYETHYLENE GLYCOL 3350 Inactive ONDANSETRON 8 MG ORAL TABLET DISINTEGRATING place one tablet on tongue and allow to dissolve every 6 hours as needed for vomitting ONDANSETRON 8 MG ORAL TABLET DISINTEGRATING 707860 ONDANSETRON Inactive PROTONIX 40 MG ORAL TABLET DELAYED RELEASE 1 pill by m outh daily, for acid reflux PROTONIX 40 MG ORAL TABLET DELAYED RELEAS E 164665 PANTOPRAZOLE SODIUM Inactive CONCERTA 18 MG ORAL TABLET EXTENDED RELEASE 1 po q a.m. CONCERTA 18 MG ORAL TABLET EXTENDED RELEASE METHYLPHENIDATE HCL Inactive COMPRO 25 MG RECTAL SUPPOSITORY insert or apply one garza ppository rectally as directed every 12 hours as needed for nausea COMPRO 25 MG RECTAL SUPPOSITORY 779043 PROCHLORPERAZINE Inactive ZITHROMAX Z-KARTHIK 250 MG ORAL TABLET 2 today, then 1 daily for 4 d ays ZITHROMAX Z-KARTHIK 250 MG ORAL TABLET 535645 AZITHROMYCIN Inactive FLONASE 50 MCG/ACT NASAL SUSPENSION 1 spray each nostril am and hs FLONASE 50 MCG/ACT NASAL SUSPENSION FLUTICASONE PROPIONATE I nactive PERCOCET 10-325 MG ORAL TABLET 1 tablet every 6 hours as needed for pain PERCOCET 10-325 MG ORAL TABLET 7912924 OXYCODONE-ACETAMI NOPHEN Inactive HYDROCODONE-ACETAMINOPHEN 5-325 MG ORAL TABLET 1 po q 6hr PRN Pa in HYDROCODONE-ACETAMINOPHEN 5-325 MG ORAL TABLET 491986 HYDROCODONE-ACETAMINOPHEN Inactive HYDROCODONE-ACETAMINOPHEN 5-325 MG ORAL TABLET 0.5 to 1 tab by mouth every 6 hours as needed HYDROCODONE-ACETAMIN OPHEN 5-325 MG ORAL TABLET 894232 HYDROCODONE-ACETAMINOPHEN Inactive HYDROCODONE-ACETAMINOPHEN 5-325 MG ORAL TABLET 1 tab b y mouth every 6 hours as needed HYDROCODONE-ACETAMINOPHEN 5-325 MG ORAL TABLET 788783 HYDROCODONE-ACETAMINOPHEN Inactive HYDROCODONE-ACETAMINOPHEN 5-325 MG ORAL TABLET 1/2 to 1 po q 4 hours prn cough HYDROCODONE-ACETAMINOPHEN 5-325 MG ORAL TABLET 8 49739 HYDROCODONE-ACETAMINOPHEN Inactive BUPROPION HCL ER (SR) 100 [...] FLUTICASONE PROPION ATE 50 MCG/ACT NASAL SUSPENSION 5281918 FLUTICASONE PROPIONATE Inactive FOCALIN XR 15 MG ORAL CAPSULE EXTENDED RELEASE 24 HOUR 1 po q a. m. FOCALIN XR 15 MG ORAL CAPSULE EXTENDED RELEASE 24 HOUR DEXMETHYLPHENIDATE HCL Inactive TRAVEL SICKNESS 25 MG ORAL TABLET CHEWABLE chew and sw allow one tablet every 6 hours as needed TRAVEL SICKNESS 25 M G ORAL TABLET CHEWABLE 887133 MECLIZINE HCL Inactive CHANTIX STARTING MONTH KARTHIK [...] Panel - Chemistry sodium, serum 142 mmol/L 617-323 5620/07/22 carbon dioxide, venous blood 26.3 mmol/L 21.0-32 [...] 0.80 mg/dL 0.00-1.00 cholesterol, serum 172 mg/dL 131-234 1363/07/22 triglyceride, serum, fasting 222 mg/dL 30-200 HDL [...] ative Encounters Code Encounter Date Provider Facility CPT-26660 Level 3 Est. Patient 09:11:53 CDT Radha VACA [facility] CPT-70335 Level 3 Est. Patient 16:46:51 CDT Thomas reynolds DO [facility] CPT-41195 [id number] Vst-Est Level III 14:40:49 CDT Paul Hamlin MD [facility] CPT-20422 Level 4 Est. Patient 11:08:43 CDT Checo Conklin MD [facility] CPT-76887 [id number] Vst-Est Level III 09:37:41 CDT Dangelo Rangel MD [facility] CPT-05376 Level 4 Est. Patient 08:57:51 PIECE MEAT TRIMMER Checo Conklin MD [facility] CPT-94659 Level 3 Est. Patient 11:24:55 PIECE MEAT TRIMMER Efren almendarez [facility] CPT-63631 Level 3 Est. Patient 13:05:44 CDT Paul Hamlin MD [facility] CPT-87800 Level 3 Est. Patient 11:29:55 CDT Checo Conklin MD [facility] CPT-94125 Level 4 Est. Patient 11:08:12 PIECE MEAT TRIMMER Checo oCnklin MD [facility] CPT-82374 Level 4 Est. Patient 16:06:48 PIECE MEAT TRIMMER Checo Conklin MD [facility] CPT-90805 Level 3 Est. Patient 09:11:49 CDT Efren almendarez [facility] CPT-88498 Level 2 Est. Patient 19:53:27 CDT Tanner hill MD [facility] CPT-08156 Level 3 Est. Patient 09:15:34 CDT Efren almendaerz [facility] CPT-90011 Level 3 Est. Patient 11:28:51 PIECE MEAT TRIMMER Efren almendarez [facility] CPT-58806 Level 4 Est. Patient 13:55:46 PIECE MEAT TRIMMER Checo Conklin MD [facility] CPT-52287 Level 4 Est. Patient 17:10:53 CDT Checo Conklin MD [facility] CPT-98441 Level 3 Est. Patient 15:56:22 CDT Checo Conklin MD [facility] CPT-09536 Level 3 Est. Patient 15:29:07 CDT Checo Conklin MD [facility] CPT-22236 Level 3 Est. Patient 14:38:41 CDT Checo Conklin MD [facility] CPT-95374 Level 3 Est. Patient 15:22:03 PIECE MEAT TRIMMER Thomas reynolds DO [facility] CPT-01180 Level 3 Est. Patient 13:34:17 PIECE MEAT TRIMMER Checo Conklin MD [facility] CPT-07667 Level 3 Est. Patient 12:29:32 CDT Dangelo arroyo MD [facility] CPT-88141 Level 3 Est. Patient 16:53:02 CDT Checo Conklin MD [facility] CPT-56982 Level 3 Est. Patient 16:37:13 CDT Checo Conklin MD [facility] CPT-02869 Level 3 Est. Patient 16:16:59 CDT Paul Hamlin MD [facility] CPT-61412 Level 3 Est. Patient 14:20:13 CDT Dangelo arroyo MD [facility] CPT-52587 Level 4 Est. Patient 11:29:33 CDT Checo Conklin MD [facility] CPT-73312 Level 3 Est. Patient 17:08:31 CDT Checo Conklin MD [facility] CPT-76841 Level 3 Est. Patient 16:50:42 PIECE MEAT TRIMMER Checo Conklin MD [facility] CPT-16819 Level 4 Est. Patient 09:26:08 PIECE MEAT TRIMMER Checo Conklin MD [facility] CPT-43139 Level 3 Est. Patient 11:37:10 CDT Checo Conklin MD [facility] CPT-48371 Level 4 Est. Patient 14:07:38 CDT Checo Conklin MD [facility] CPT-46477 Level 3 Est. Patient 09:54:41 CDT Checo Conklin MD [facility] CPT-91225 Level 3 Est. Patient 11:10:54 CDT Paul Hamlin MD [facility] CPT-92188 Level 3 Est. Patient 14:16:56 PIECE MEAT TRIMMER Checo Conklin MD [facility] CPT-59134 Level 3 Est. Patient 11:04:11 PIECE MEAT TRIMMER Checo Conklin MD [facility] CPT-28120 Level 3 Est. Patient 17:09:26 CDT Dangelo arroyo MD [facility] CPT-89231 Level 3 Est. Patient 16:54:37 CDT Checo Conklin MD [facility] Procedures Code Procedure Name Date Entry Date Standard Desc ription CPT-08563 Abx/Therapy Injection 09:52:15 CDT CPT-20277 Abx/Therapy Injection 18:17:48 CDT CPT-J2550 Phenergan 25 mg (Promethazine) 16:48:23 CDT CPT-J1885 Toradol 60 mg 16:48:23 CDT CPT-75507 Wrist, right, comp 3V - XRAY USE ONLY 09:24:31 CDT CPT-67252 Abd compl w upright - XRAY USE ONLY 1 1:36:54 [employer] CPT-70257 UA w micro - LAB USE ONLY 17:06:46 CDT 2015 CPT-57096 [facility] Qual - LAB USE ONLY 17:06:46 CDT 05/06 CPT-64503 CMP - LAB USE ONLY 17:06:46 CDT CPT-17382 CBC with Diff - LAB USE ONLY 17:06:45 CDT 2 CPT-45491 Venipuncture Draw Fee 17:06:45 CDT CPT-LR Lesion Removal 19:53:27 CDT CPT-OV Office Visit 11:31:28 CDT CPT-42920 Tubersol 09:39:29 CDT CPT-J2550 Phenergan 25 mg (Promethazine) 13:59:02 [employer] CPT-J1885 Toradol 60 mg (Ketorolac) 13:59:02 PIECE [id number] TRIMMER [id number]
--- OUTSIDE RECORDS SUMMARY | 2019-09-29 01:15 | XMS REPORT | Clinical Summary ---
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 Checo Conklin MD Neoplasm of uncertain behavior of skin Abdominal pain, generalized 789.07 Resolved Checo oCnklin MD Abdominal pain, generalized Urinary frequency 788.41 [...] Kendrick DO Body Mass Index 26.0-26.9, adult FH BREAST CANCER ICD-V16.3 Inactive Checo Joshua FH DIABETES ICD-V18.0 Inactive Checo Conklin MD 201 08/27/26 CONCUSSION ICD-850.9 Inactive Checo Joshua UTI ICD-599.0 Inactive Checo Conklin MD 2013 ABDOMINAL PAIN RIGHT LOWER QUADRANT ICD-789.03 Inactive Checo Conklin MD HEADACHE, TENSION ICD-307.81 Inactive Checo Conlkin MD PHARYNGITIS ICD-462 Inactive Checo Conklin MD [...] ICD-462 Inactive Checo Conklin MD Cough ICD-786.2 Ozzy Conklin MD 2016 Pedal edema ICD-782.3 Inactive [...] 25.0-25.9 Adult Inac tive Paul Hamlin MD Medication List Medication Instructions Start Date Stop Date Generic Name NDC Status Provider Patient Instruction KLOR-CON 10 10 MEQ ORAL TABLET EXTENDED RELEASE 1 daily with furosemide POTASSIUM CHLORIDE [id number] Active Paul Hamlin MD Active FUROSEMIDE 20 MG ORAL TABLET 1 daily for swelling FUROSEMIDE 96668772217 Active Paul Hamlin MD Active HYDROCHLOROTHIAZIDE 12.5 MG ORAL CAPSULE 1 po qd PRN Edema 01/10 HYDROCHLOROTHIAZIDE 37173219302 No Longer Active Paul Hamlin MD Active IBUPROFEN 800 MG ORAL TABLET 1 tab every 8 hours as needed for p ain IBUPROFEN 27410203509 No Longer Active Paul Hamlin MD Active PAROXETINE HCL 40 MG ORAL TABLET 1 po qd PAR OXETINE HCL 73462335755 Active Checo Conklin MD Active MIRALAX ORAL POWDER 8.5 to 17g po qd PRN Constipation POLYETHYLENE GLYCOL 3350 39780686156 No Longer Active Checo Conklin MD Active PROTONIX 40 MG ORAL TABLET DELAYED RELEASE 1 pill by m outh daily, for acid reflux PANTOPRAZOLE SODIUM 61719320740 No Longer Activ e Corry Méndez LPN Active FLAGYL 500 MG ORAL TABLET 1 tablet by mouth bid 08/29 METRONIDAZOLE 66408883411 No Longer Active Corry Méndez LPN Active CLARITHROMYCIN 500 MG ORAL TABLET 1 tab po BID x 14 days CLARITHROMYCIN 14033733167 No Longer Active Corry Méndez LPN Active AMOXICILLIN 500 MG ORAL CAPSULE 2 po BID x 14 days for H. Pylori AMOXICILLIN 91422662694 No Longer Active Corry Méndez LPN Active FLUTICASONE PROPIONATE 50 MCG/ACT NASAL SUSPENSION 2 s prays/nostril qd PRN Congestion/Allergies FLUTICASONE PROPIONATE 7469927913 9 No Longer Active Checo Conklin MD Active AMOXICILLIN 500 MG ORAL CAPSULE 2 po BID x 10 days 201 01/15/27 AMOXICILLIN 02945609941 No Longer Active Checo Conklin MD Activ e CLARITIN 10 MG ORAL TABLET 1 tablet by mouth daily as needed for allergies LORATADINE 43671071622 No Longer Active Checo Ortiz MD Active BACTRIM DS 800-160 MG ORAL TABLET 1 tab by mouth twice daily 201 12/19/26 TRIMETHOPRIM-SULFAMETHOXAZOLE 35699859089 No Longer Active Ragini Carrillo MD Active DIFLUCAN 150 MG ORAL TABLET 1 tablet by mouth qod 2015 FLUCONAZOLE 85996292120 No Longer Active Efren Medel CAR STARTER Act mike AZITHROMYCIN 250 MG ORAL TABLET 2 po qd x 1 day, then 1 po q d x 4 days AZITHROMYCIN 32788468112 No Longer Active Efren flores CAR STARTER Active FLAGYL 500 MG ORAL TABLET 1 tablet by mouth bid 04/13 METRONIDAZOLE 14312953220 No Longer Active Checo Conklin MD Acti ve FOCALIN XR 10 MG ORAL CAPSULE EXTENDED RELEASE 24 HOUR 1 po q a.m. DEXMETHYLPHENIDATE HCL 70234231245 Active Checo Conklin MD Active MAGNESIUM CITRATE 1.745 GM/30ML ORAL SOLUTION 150ml po BID P RN Constipation MAGNESIUM CITRATE 98641872675 No Longer Active Checo Conklin MD Active BACTROBAN 2 % EXTERNAL CREAM Apply to affected area BID for up to 10 days MUPIROCIN CALCIUM 52611716983 No Longer Active Checo Conklin MD Active HYDROCODONE-ACETAMINOPHEN 5-325 MG ORAL TABLET 1 tab b y mouth every 6 hours as needed HYDROCODONE-ACETAMINOPHEN 61436490150 No Longer Active Checo Conklin MD Active IBUPROFEN 800 MG ORAL TABLET 1 tab every 8 hours with food 03/20 IBUPROFEN 19157485971 No Longer Active Checo Conklin MD Active DIFLUCAN 150 MG ORAL TABLET 1 tablet by mouth if neede d, hold until symptoms start FLUCONAZOLE 17569872910 No Longer Active Checo Conklin MD Active BACTRIM DS 800-160 MG ORAL TABLET 1 tab by mouth twice daily 201 11/23/03 TRIMETHOPRIM-SULFAMETHOXAZOLE 86779475007 No Longer Active K bernice Méndez LPN Active HYDROCODONE-ACETAMINOPHEN 5-325 MG ORAL TABLET 0.5 to 1 tab by mouth every 6 hours as needed HYDROCODONE-ACETAMINOPHEN 44549148060 No Longer Active Checo Conklin MD Active ONDANSETRON 8 MG ORAL TABLET DISINTEGRATING place one tablet on tongue and allow to dissolve every 6 hours as needed for vomitting ONDANSETRON 15423327341 No Longer Active Checo Conklin MD Activ e COMPRO 25 MG RECTAL SUPPOSITORY insert or apply one garza ppository rectally as directed every 12 hours as needed for nausea PROCHLORPERAZINE 03474767574 No Longer Active Checo Conklin MD A ctive SUMATRIPTAN SUCCINATE 100 MG ORAL TABLET Take one PRN for migran e SUMATRIPTAN SUCCINATE 80276419744 No Longer Active Checo Conklin MD Active TRAVEL SICKNESS 25 MG ORAL TABLET CHEWABLE chew and sw allow one tablet every 6 hours as needed MECLIZINE HCL 65257820205 No Longer A ctive Checo Conklin MD Active BUPROPION HCL ER (SR) 100 MG ORAL TABLET EXTENDED RELE ASE 12 HOUR take one tablet by mouth one time daily for one week then take 1 two times daily BUPROPION HCL 97009075507 No Longer Active Checo gallagher MD Active TERBINAFINE HCL 250 MG ORAL TABLET take one table PO one time da moises TERBINAFINE HCL 54389710420 No Longer Active Checo Conklin MD Active METOCLOPRAMIDE HCL 10 MG ORAL TABLET take one PO tid PRN nausea METOCLOPRAMIDE HCL 99523344087 No Longer Active Checo Conklin MD Active DICLOFENAC SODIUM 75 MG ORAL TABLET DELAYED RELEASE 1 tablet by mouth twice daily PRN Knee pain DICLOFENAC SODIUM 95075980741 No Longer Active Checo Conklin MD Active LAMISIL 250 MG ORAL TABLET 1 po qd TERBINAFI NE HCL 14302975121 No Longer Active Checo Conklin MD Active REGLAN 10 MG ORAL TABLET 1 po TID PRN Nausea 3 METOCLOPRAMIDE HCL 81473601929 No Longer Active Checo Conklin MD Active CELEXA 20 MG ORAL TABLET 1 tablet by mouth daily 09/26 CITALOPRAM HYDROBROMIDE 69470381844 No Longer Active Checo Conklin MD Active AZITHROMYCIN 250 MG ORAL TABLET 2 po qd x 1 day, then 1 po q d x 4 days AZITHROMYCIN 31386319193 No Longer Active Checo Ortiz MD Active HYDROCODONE-ACETAMINOPHEN 5-325 MG ORAL TABLET 1 po q 6hr PRN Pa in HYDROCODONE-ACETAMINOPHEN 15250941758 No Longer Active Lenora Conklin MD Active PHENAZOPYRIDINE HCL 200 MG ORAL TABLET take 1 tab po TID for bladder pain PHENAZOPYRIDINE HCL 18871506410 No Longer Active Joe Conklin MD Active CIPRO 500 MG ORAL TABLET 1 tablet by mouth twice daily CIPROFLOXACIN HCL 31681439389 No Longer Active Dangelo Rangel MD Active HYDROCODONE-ACETAMINOPHEN 5-325 MG ORAL TABLET 1/2 to 1 po q 4 hours prn cough HYDROCODONE-ACETAMINOPHEN 36269775986 No Longer Activ candy Rangel MD Active BACTRIM DS 800-160 MG ORAL TABLET 1 po BID x 7 days 29/04/10 SULFAMETHOXAZOLE-TRIMETHOPRIM 40205419111 No Longer Active Checo Conklin MD Active PREDNISONE 20 MG ORAL TABLET 2 tabs daily for 3 days, 1 tab daily for 3 days, 1/2 tab daily for 2 days PREDNISONE 43141845824 No Longer Active Checo Conklin MD Active TRIAMCINOLONE ACETONIDE 0.1 % EXTERNAL OINTMENT Apply to affected areas TID for up to 2 weeks TRIAMCINOLONE ACETONIDE 77280225383 No Longer Active Checo Conklin MD Active CEFDINIR 300 MG ORAL CAPSULE by mouth twice a day 2013 CEFDINIR 15577100273 No Longer Active Dangelo Rangel MD Acti ve BUPROPION HCL ER (SMOKING DET) 150 MG ORAL TABLET EXTE NDED RELEASE 12 HOUR 1 a day for 1 week then 1 twice a day BUPROPION HCL (SMOKING DETER) 18824815794 No Longer Active Checo Conklin MD Active SIMVASTATIN 20 MG ORAL TABLET 1 po qd SIMVASTAT IN 70762819620 Active Checo Conklin MD Active CHANTIX STARTING MONTH KARTHIK 0.5 MG X 11 & 1 MG X 42 ORA L TABLET 0.5mg daily for 3 days, then 0.5mg BID for 4 days, then 1mg BID VARENICLINE TARTRATE 34151165435 No Longer Active Checo Conklin MD Activ e XANAX 0.5 MG ORAL TABLET 1 po BID PRN anxiety A LPRAZOLAM 56742464188 Active Checo Conklin MD Active CONCERTA 18 MG ORAL TABLET EXTENDED RELEASE 1 po q a.m. METHYLPHENIDATE HCL 08490551030 No Longer Active hCeco Conklin MD Active AMBIEN 5 MG ORAL TABLET 1 po qHS PRN Insomnia Z OLPIDEM TARTRATE 37400241473 Active Checo Conklin MD Active TRAZODONE HCL 100 MG ORAL TABLET 0.5 to 1 po qHS PRN Insomnia 20 30/07/08 TRAZODONE HCL 86679207140 No Longer Active Checo Conklin MD Active FIORICET 325-50-40 MG TAB 1 tablet by mouth four times daily as needed [id number] 64649869680 No Longer Active Checo Conklin MD Active PHENERGAN CREAM* 25mg applied to wrist q6hr PRN Nausea PHENERGAN CREAM* No Longer Active Checo Conklin MD A ctive FLONASE 50 MCG/ACT NASAL SUSPENSION 1 spray each nostril am and hs FLUTICASONE PROPIONATE 69054064579 No Longer Active Checo Conklin MD Active ANTIPYRINE-BENZOCAINE 5.4-1.4 % OTIC SOLUTION 1-2 drops in affec yohannes ear BENZOCAINE-ANTIPYRINE 27572079429 No Longer Active Checo Conklin MD Active CEFDINIR 300 MG ORAL CAPSULE 1 po bid CEFDINIR 11364904179 No Longer Active Checo Conklin MD Active PREDNISONE 20 MG ORAL TABLET 2 tabs daily for 3 days, 1 tab daily for 3 days, 1/2 tab daily for 2 days PREDNISONE 39070563168 No Longer Active Checo Conklin MD Active AZITHROMYCIN 250 MG ORAL TABLET 2 po qd x 1 day, then 1 po q d x 4 days AZITHROMYCIN 60744728941 No Longer Active Checo Ortiz MD Active PREDNISONE 20 MG ORAL TABLET 2 tabs daily for 3 days, 1 tab daily for 3 days, 1/2 tab daily for 2 days PREDNISONE 60840657885 No Longer Active Checo Conklin MD Active ZITHROMAX Z-KARTHIK 250 MG ORAL TABLET 2 today, then 1 daily for 4 d ays AZITHROMYCIN 05600689425 No Longer Active Paul Hamlin MD Active FOCALIN XR 10 MG ORAL CAPSULE EXTENDED RELEASE 24 HOUR 1 po q a. m. DEXMETHYLPHENIDATE HCL 23101257688 No Longer Active Paul Hamlin MD Active PERCOCET 10-325 MG ORAL TABLET 1 tablet every 6 hours as needed for pain OXYCODONE-ACETAMINOPHEN 94331423018 No Longer Active Paul Hamlin MD Active LORTAB 5-500 MG ORAL TABLET 1/2 to 1 tablet by mouth e very 4 hours as needed for pain HYDROCODONE-ACETAMINOPHEN 88396686712 No Longer Active Checo Conklin MD Active FOCALIN XR 15 MG ORAL CAPSULE EXTENDED RELEASE 24 HOUR 1 po q a. m. DEXMETHYLPHENIDATE HCL 66153422370 No Longer Active Checo Conklin MD Active ZOFRAN ODT 4 MG ORAL TABLET DISINTEGRATING 1 po q6hr PRN Nausea ONDANSETRON 11712773875 No Longer Active Checo Conklin MD Active PERCOCET 5-325 MG ORAL TABLET 1 tablet by mouth every 6 hour s as needed OXYCODONE-ACETAMINOPHEN 02499525656 No Longer Active Checo Conklin MD Active PYRIDIUM 200 MG ORAL TABLET take 1 tab po TID prn urinary pain. PHENAZOPYRIDINE HCL 53436803339 No Longer Active Checo Joshua Active FLUCONAZOLE 150 MG ORAL TABLET take 1 tab po qday once FLUCONAZOLE 87161321570 No Longer Active Dangelo Rangel MD Acti ve CIPRO 500 MG ORAL TABLET 1 tablet by mouth twice daily CIPROFLOXACIN HCL 94741374291 No Longer Active Dangelo Rangel MD Active PYRIDIUM 200 MG ORAL TABLET take 1 tab po TID prn urinary pain. PYRIDIUM 200 MG ORAL TABLET 5453898 PHENAZOPYRIDINE HCL Inactive PERCOCET 5-325 MG ORAL TABLET 1 tablet by mouth every 6 hour s as needed PERCOCET 5-325 MG ORAL TABLET 9311499 OXYCODONE-ACETAMINOPHEN Inactive ZOFRAN ODT 4 MG ORAL TABLET DISINTEGRATING 1 po q6hr PRN Nausea ZOFRAN ODT 4 MG ORAL TABLET DISINTEGRATING 359008 ONDAN SETRON Inactive FOCALIN XR 15 MG [...] for pain PERCOCET 10-325 MG ORAL TABLET 6682550 OXYCODONE-ACETAMI NOPHEN Inactive FOCALIN XR 10 MG ORAL CAPSULE EXTENDED RELEASE 24 HOUR 1 po q a. m. FOCALIN XR 10 MG ORAL CAPSULE EXTENDED RELEASE 24 HOUR DEXMETHYLPHENIDATE HCL Inactive CEFDINIR 300 MG ORAL CAPSULE 1 po bid CEFDINI R 300 MG ORAL CAPSULE 957337 CEFDINIR Inactive ANTIPYRINE-BENZOCAINE 5.4-1.4 % OTIC SOLUTION 1-2 drops in affec yohannes ear ANTIPYRINE-BENZOCAINE 5.4-1.4 % OTIC SOLUTION BENZOCAINE-ANTIPYRINE Inactive FLONASE 50 MCG/ACT NASAL SUSPENSION 1 spray each nostril am and hs FLONASE 50 MCG/ACT NASAL SUSPENSION 8294057 FLUTICASONE PROPIONATE I nactive PHENERGAN CREAM* 25mg applied to wrist q6hr PRN Nausea PHENERGAN CREAM* Inactive FIORICET 325-50-40 MG TAB 1 tablet by mouth four times daily as needed FIORICET 325-50-40 MG TAB ACETAMINOPHEN-C AFF-BUTALBITAL Inactive TRAZODONE HCL 100 MG ORAL TABLET 0.5 to 1 po qHS PRN Insomnia 20 30/07/08 TRAZODONE HCL 100 MG ORAL TABLET 099612 TRAZODONE HCL Inactive CONCERTA 18 MG ORAL [...] cough HYDROCODONE-ACETAMINOPHEN 5-325 MG ORAL TABLET 8 54742 HYDROCODONE-ACETAMINOPHEN Inactive PHENAZOPYRIDINE HCL 200 MG ORAL TABLET take 1 tab po TID for bladder pain PHENAZOPYRIDINE HCL 200 MG ORAL TABLET 4660414 PHENAZOPYRIDINE HCL Inactive HYDROCODONE-ACETAMINOPHEN 5-325 MG ORAL TABLET 1 po q 6hr PRN Pa in HYDROCODONE-ACETAMINOPHEN 5-325 MG ORAL TABLET 430193 HYDROCODONE-ACETAMINOPHEN Inactive CELEXA 20 MG ORAL TABLET 1 tablet by mouth daily 09/26 CELEXA 20 MG ORAL TABLET 767563 CITALOPRAM HYDROBROMIDE Inactive REGLAN 10 MG ORAL TABLET 1 po TID PRN Nausea 3 REGLAN 10 MG ORAL TABLET 343515 METOCLOPRAMIDE HCL Inactive LAMISIL 250 MG ORAL TABLET 1 po qd L AMISIL 250 MG ORAL TABLET 569852 TERBINAFINE HCL Inactive DICLOFENAC SODIUM 75 MG ORAL TABLET DELAYED RELEASE 1 tablet by mouth twice daily PRN Knee pain DICLOFENAC SODIUM 75 MG ORAL TABLET DELAYED RELEASE 304049 DICLOFENAC SODIUM Inactive METOCLOPRAMIDE HCL 10 MG ORAL TABLET take one PO tid PRN nausea METOCLOPRAMIDE HCL 10 MG ORAL TABLET 426246 METOCLOPRAM ZACH HCL Inactive TERBINAFINE HCL 250 MG ORAL TABLET take one table PO one time da moises TERBINAFINE HCL 250 MG ORAL TABLET 329214 TERBINAFINE H CL Inactive BUPROPION HCL ER [...] SICKNESS 25 M G ORAL TABLET CHEWABLE 362064 MECLIZINE HCL Inactive SUMATRIPTAN SUCCINATE 100 MG ORAL TABLET Take one PRN for migran e SUMATRIPTAN SUCCINATE 100 MG ORAL TABLET 824046 SUMATRIPTAN SUCCINATE Inactive COMPRO 25 MG RECTAL SUPPOSITORY insert or apply one garza ppository rectally as directed every 12 hours as needed for nausea COMPRO 25 MG RECTAL SUPPOSITORY 020356 PROCHLORPERAZINE Inactive ONDANSETRON 8 MG ORAL TABLET DISINTEGRATING place one tablet on tongue and allow to dissolve every 6 hours as needed for vomitting ONDANSETRON 8 MG ORAL TABLET DISINTEGRATING 554023 ONDANSETRON Inactive HYDROCODONE-ACETAMINOPHEN 5-325 MG ORAL TABLET 0.5 to 1 tab by mouth every 6 hours as needed HYDROCODONE-ACETAMIN OPHEN 5-325 MG ORAL TABLET 868008 HYDROCODONE-ACETAMINOPHEN Inactive BACTRIM DS 800-160 MG ORAL TABLET 1 tab by mouth twice daily 201 11/23/03 BACTRIM DS 800-160 MG ORAL TABLET 391680 TRIMETHOPRIM-SULFAMETHOXAZOLE Inactive DIFLUCAN 150 MG ORAL TABLET 1 tablet by mouth if neede d, hold until symptoms start DIFLUCAN 150 MG ORAL TABLET 572779 FLUCONAZ OLE Inactive IBUPROFEN 800 MG ORAL TABLET 1 tab every 8 hours with food 03/20 IBUPROFEN 800 MG ORAL TABLET 278400 IBUPROFEN Krupa ctive HYDROCODONE-ACETAMINOPHEN 5-325 MG ORAL TABLET 1 tab b y mouth every 6 hours as needed HYDROCODONE-ACETAMINOPHEN 5-325 MG ORAL TABLET 325994 HYDROCODONE-ACETAMINOPHEN Inactive BACTROBAN 2 % EXTERNAL CREAM Apply to affected area BID for up to 10 days BACTROBAN 2 % EXTERNAL CREAM 894552 MUPIROCIN CA LCIUM Inactive MAGNESIUM CITRATE 1.745 GM/30ML ORAL SOLUTION 150ml po BID P RN Constipation MAGNESIUM CITRATE 1.745 GM/30ML ORAL SOLUTION 10 13024 MAGNESIUM CITRATE Inactive DIFLUCAN 150 MG ORAL TABLET 1 tablet by mouth qod 2015 DIFLUCAN 150 MG ORAL TABLET 217590 FLUCONAZOLE Inactive BACTRIM DS 800-160 MG ORAL TABLET 1 tab by mouth twice daily 201 12/19/26 BACTRIM DS 800-160 MG ORAL TABLET 974514 TRIMETHOPRIM-SULFAMETHOXAZOLE Inactive CLARITIN 10 MG ORAL TABLET 1 tablet by mouth daily as needed for allergies CLARITIN 10 MG ORAL TABLET 401930 LORATADINE I nactive FLUTICASONE PROPIONATE 50 MCG/ACT NASAL SUSPENSION 2 s prays/nostril qd PRN Congestion/Allergies FLUTICASONE PROPION ATE 50 MCG/ACT NASAL SUSPENSION 5807286 FLUTICASONE PROPIONATE Inactive MIRALAX ORAL POWDER 8.5 to 17g po qd PRN Constipation MIRALAX ORAL POWDER 135219 POLYETHYLENE GLYCOL 3350 Inactive IBUPROFEN 800 MG ORAL TABLET 1 tab every 8 hours as needed for p ain IBUPROFEN 800 MG ORAL TABLET 464429 IBUPROFEN Krupa ctive HYDROCHLOROTHIAZIDE 12.5 MG ORAL CAPSULE 1 po qd PRN Edema 01/10 HYDROCHLOROTHIAZIDE 12.5 MG ORAL CAPSULE 222684 HYDROCH LOROTHIAZIDE Inactive CIPRO 500 MG ORAL TABLET 1 tablet by mouth twice daily CIPRO 500 MG ORAL TABLET 212020 CIPROFLOXACIN HCL Inactive FLUCONAZOLE 150 MG ORAL TABLET take 1 tab po qday once FLUCONAZOLE 150 MG ORAL TABLET 209660 FLUCONAZOLE Inactive ZITHROMAX Z-KARTHIK 250 MG ORAL TABLET 2 today, then 1 daily for 4 d ays ZITHROMAX Z-KARTHIK 250 MG ORAL TABLET 360096 AZITHROMYCIN Inactive PREDNISONE 20 MG ORAL TABLET 2 tabs daily for 3 days, 1 tab daily for 3 days, 1/2 tab daily for 2 days PREDNISONE 20 MG ORAL T ABLET 960125 PREDNISONE Inactive AZITHROMYCIN 250 MG ORAL TABLET 2 po qd x 1 day, then 1 po q d x 4 days AZITHROMYCIN 250 MG ORAL TABLET 569682 AZITHROMY SPARKLE Inactive PREDNISONE 20 MG ORAL TABLET 2 tabs daily for 3 days, 1 tab daily for 3 days, 1/2 tab daily for 2 days PREDNISONE 20 MG ORAL TABLET 303120 PREDNISONE Inactive CEFDINIR 300 MG ORAL CAPSULE by mouth twice a day 2013 CEFDINIR 300 MG ORAL CAPSULE 157175 CEFDINIR Inactive TRIAMCINOLONE ACETONIDE 0.1 % EXTERNAL OINTMENT Apply to affected areas TID for up to 2 weeks TRIAMCINOLONE ACETON ZACH 0.1 % EXTERNAL OINTMENT 1186770 TRIAMCINOLONE ACETONIDE Inactive PREDNISONE 20 MG ORAL TABLET 2 tabs daily for 3 days, 1 tab daily for 3 days, 1/2 tab daily for 2 days PREDNISONE 20 MG ORAL T ABLET 317163 PREDNISONE Inactive BACTRIM DS 800-160 MG ORAL TABLET 1 po BID x 7 days 29/04/10 BACTRIM DS 800-160 MG ORAL TABLET 090224 SULFAMETHOXAZOLE-TRIMETHOP RIM Inactive CIPRO 500 MG ORAL TABLET 1 tablet by mouth twice daily CIPRO 500 MG ORAL TABLET 245756 CIPROFLOXACIN HCL Inactive AZITHROMYCIN 250 MG ORAL TABLET 2 po qd x 1 day, then 1 po q d x 4 days AZITHROMYCIN 250 MG ORAL TABLET 985217 AZITHROMY SPARKLE Inactive FLAGYL 500 MG ORAL TABLET 1 tablet by mouth bid 04/13 FLAGYL 500 MG ORAL TABLET 273710 METRONIDAZOLE Inactive AZITHROMYCIN 250 MG ORAL TABLET 2 po qd x 1 day, then 1 po q d x 4 days AZITHROMYCIN 250 MG ORAL TABLET 200180 AZITHROMY SPARKLE Inactive AMOXICILLIN 500 MG ORAL CAPSULE 2 po BID x 10 days 201 01/15/27 AMOXICILLIN 500 MG ORAL CAPSULE 309820 AMOXICILLIN Inactive AMOXICILLIN 500 MG ORAL CAPSULE 2 po BID x 14 days for H. Pylori AMOXICILLIN 500 MG ORAL CAPSULE 444326 AMOXICILLIN Inactive CLARITHROMYCIN 500 MG ORAL TABLET 1 tab po BID x 14 days CLARITHROMYCIN 500 MG ORAL TABLET 709045 CLARITHROMYCIN Inacti ve FLAGYL 500 MG ORAL TABLET 1 tablet by mouth bid 08/29 FLAGYL 500 MG ORAL TABLET 786122 METRONIDAZOLE Inactive PROTONIX 40 MG ORAL TABLET DELAYED RELEASE 1 pill by m kayceeh daily, for acid reflux PROTONIX 40 MG ORAL TABLET DELAYED RELEAS E 784909 PANTOPRAZOLE SODIUM Inactive Immunizations Vaccine Administration Date [...] weight E&M 157 [lb_av] Weight Measure d blood pressure, diastolic 81 mm[Hg] BP mathew blood pressure, systolic 125 mm[Hg] BP sys height E&M 63.5 [in_us] Bdy height pulse rate E&M 65 /min Heart rate temperature E&M 98.3 [degF] Body temp erature weight E&M 149 [lb_av] Weight Measure d blood pressure, diastolic 84 mm[Hg] BP mathew blood pressure, systolic 139 mm[Hg] BP sys height E&M 63.5 [in_us] Bdy height pulse rate E&M 74 /min Heart rate temperature E&M 98.4 [degF] Body temp erature weight E&M 147 [lb_av] Weight Measure d blood pressure, diastolic 78 mm[Hg] BP mathew blood pressure, systolic 121 mm[Hg] BP sys height E&M 63.5 [in_us] Bdy height pulse rate E&M 83 /min Heart rate temperature E&M 97.8 [degF] Body temp erature weight E&M 138.5 [lb_av] Weight Measure d blood pressure, diastolic 75 mm[Hg] BP mathew blood pressure, systolic 107 mm[Hg] BP sys height E&M 63.5 [in_us] Bdy height pulse rate E&M 79 /min Heart rate temperature E&M 98.4 [degF] Body temp erature weight E&M 137 [lb_av] Weight Measure d Diagnostic Results Date Name Value Unit Range Description Lab Report: CBC W/DIFF - Hematology leukocyte count, blood 7.6 10^3/MM^3 10*3/mm3 4.6-10.2 neutrophils as percent of blood leukocytes 66.5 % 42.2-75.2 monocytes as percent of blood leukocytes 7.3 % 1.7-9.3 lymphocytes as percent of blood leukocytes 23.9 % 20.5-51.1 erythrocyte (RBC) count 4.17 10^6/MM^3 10*6/mm3 3.80-5.8 0 hemoglobin, blood 13.8 g/dL 12.0-16.0 hematocrit, blood 40.5 % 37.0-47.0 mean corpuscular volume, RBC 97 fL 80-97 mean corpuscular hemoglobin, RBC 33.0 pg 27. 0-31.2 mean corpuscular hemoglobin concentration, RBC 34.0 G/DL % 31.8-35.4 red blood cell distribution width 11.5 % 11 .6-14.8 platelet count 215 10^3/MM^3 10*3/mm3 142-424 Lab Report: Comp. Metabolic Panel, B-Typ e Natriuretic Peptide, Free Thyr ... - Chemistry sodium, serum 138 mmol/L 096-678 4777/06/27 carbon dioxide, venous blood 30.3 mmol/L 21.0-32 .0 potassium, serum 4.4 mmol/L 3.5-5.2 chloride, serum 102 mmol/L 98-107 blood glucose 95 mg/dL 65-95 urea nitrogen, blood 11 mg/dL 7-18 creatinine, serum 0.61 mg/dL 0.60-1.30 alanine aminotransferase (SGPT), serum 28 U/L 12-78 aspartate aminotransferase (SGOT), serum 20 U/L 15-37 calcium, serum 9.3 mg/dL 8.5-10.1 bilirubin, serum, total 0.60 mg/dL 0.00-1.00 thyroxine, serum, free 0.70 ng/dL 0.59-1.17 TSH 2.81 m[iU]/mL 0.36-3.74 Lab Report: Comp. Metabolic Panel, Eryth rocyte Sed Rate, UADIP W/MICRO, ... - Chemistry sodium, serum 139 mmol/L 098-821 1889/11/28 carbon dioxide, venous blood 26.0 mmol/L 21.0-32 .0 potassium, serum 3.9 mmol/L 3.5-5.2 chloride, serum 104 mmol/L 98-107 blood glucose 76 mg/dL 65-110 urea nitrogen, blood 13 mg/dL 7-18 creatinine, serum 0.62 mg/dL 0.60-1.30 alanine aminotransferase (SGPT), serum 37 U/L 12-78 aspartate aminotransferase (SGOT), serum 25 U/L 15-37 calcium, serum 8.3 mg/dL 8.5-10.1 bilirubin, serum, total 0.60 mg/dL 0.00-1.00 protein, total urine random Negative mg/dL Negative RBC, urine, dipstick 1+ Negative Lab Report: Comp. Metabolic Panel, Eryth rocyte Sed Rate, UADIP W/MICRO, ... - Urinalysis urobilinogen, urine, semiquantitative (dipstick) 0.2 E .U./dL Normal leukocyte esterase, urine, by dipstick Negative Negative nitrite, urine, semiquantitative Negative Neg ative glucose, urine, semiquantitative Negative Neg ative ketones, urine, by test strip Negative Negati ve bilirubin, urine Negative Negative urine color Yellow Colorless;Lightyellow;St raw;Yellow appearance, urine Slightly Cloudy Clear specific gravity, urine >=1.030 1.000-1.030 pH, urine, semiquantitative 6.0 5.0-8.5 Lab Report: UADIP W/MICRO, AUTO - Chemis [...] 5.0-8.5 Encounters Code Encounter Date Provider Facility CPT-86206 Level 3 Est. Patient 16:46:51 CDT Thomas reynolds DO [facility] CPT-75266 [id number] Vst-Est Level III 14:40:49 CDT Paul Hamlin MD [facility] CPT-89675 Level 4 Est. Patient 11:08:43 CDT Checo Conklin MD [facility]-[id number] Vst-Est Level III 09:37:41 CDT Dangelo Rangel MD [facility] CPT-99989 Level 4 Est. Patient 08:57:51 [employer]ISTICS SUP[employer]Y OFFICER Checo Conklin MD [facility] CPT-28232 Level 3 Est. Patient 11:24:55 LOGISTICS SUPPLY OFFICER Efren almendarez [facility] CPT-13436 Level 3 Est. Patient 13:05:44 CDT Paul Hamlin MD [facility] CPT-37787 Level 3 Est. Patient 11:29:55 CDT Checo Conklin MD [facility] CPT-67402 Level 4 Est. Patient 11:08:12 LOGISTICS SUPPLY OFFICER Checo Conklin MD [facility] CPT-24047 Level 4 Est. Patient 16:06:48 LOGISTICS SUPPLY OFFICER Checo Conklin MD [facility] CPT-53094 Level 3 Est. Patient 09:11:49 CDT Efren almendarez [facility]-54224 Level 2 Est. Patient 19:53:27 CDT Tanner hill MD [facility] CPT-44332 Level 3 Est. Patient 09:15:34 CDT Efren almendarez [facility]-47765 Level 3 Est. Patient 11:28:51 LOGISTICS SUPPLY OFFICER Efren almendarez APRN [facility] CPT-06561 Level 4 Est. Patient 13:55:46 LOGISTICS SUPPLY OFFICER Checo Conklin MD [facility] CPT-44156 Level 4 Est. Patient 17:10:53 CDT Checo Conklin MD [facility] CPT-61276 Level 3 Est. Patient 15:56:22 CDT Checo Conklin MD [facility] CPT-85959 Level 3 Est. Patient 15:29:07 CDT Checo Conklin MD [facility] CPT-47071 Level 3 Est. Patient 14:38:41 CDT Checo Conklin MD [facility] CPT-29401 Level 3 Est. Patient 15:22:03 LOGISTICS SUPPLY OFFICER Thomas reynolds DO [facility] CPT-64774 Level 3 Est. Patient 13:34:17 LOGISTICS SUPPLY OFFICER Checo Conklin MD [facility] CPT-66054 Level 3 Est. Patient 12:29:32 CDT Dangelo arroyo MD [facility] CPT-30317 Level 3 Est. Patient 16:53:02 CDT Checo Conklin MD [facility] CPT-40183 Level 3 Est. Patient 16:37:13 CDT Checo Conklin MD [facility] CPT-51902 Level 3 Est. Patient 16:16:59 CDT Paul Hamlin MD [facility] CPT-74981 Level 3 Est. Patient 14:20:13 CDT Dangelo arroyo MD [facility] CPT-65898 Level 4 Est. Patient 11:29:33 CDT Checo Conklin MD [facility] CPT-97361 Level 3 Est. Patient 17:08:31 CDT Checo Conklin MD [facility] CPT-08441 Level 3 Est. Patient 16:50:42 LOGISTICS SUPPLY OFFICER Checo Conklin MD [facility] CPT-82036 Level 4 Est. Patient 09:26:08 LOGISTICS SUPPLY OFFICER Checo Conklin MD [facility] CPT-39975 Level 3 Est. Patient 11:37:10 CDT Checo Conklin MD [facility] CPT-96374 Level 4 Est. Patient 14:07:38 CDT Checo Conklin MD [facility] CPT-78274 Level 3 Est. Patient 09:54:41 CDT Checo Conklin MD [facility] CPT-94629 Level 3 Est. Patient 11:10:54 CDT Paul Hamlin MD [facility] CPT-98246 Level 3 Est. Patient 14:16:56 LOGISTICS SUPPLY OFFICER Checo Conklin MD [facility] CPT-33130 Level 3 Est. Patient 11:04:11 LOGISTICS SUPPLY OFFICER Checo Conklin MD [facility] CPT-90898 Level 3 Est. Patient 17:09:26 CDT Dangelo arroyo MD [facility] CPT-06752 Level 3 Est. Patient 16:54:37 CDT Checo Conklin MD [facility] Procedures Code Procedure Name Date Entry Date Standard Desc ription CPT-43390 Abx/Therapy Injection 09:52:15 CDT CPT-55732 Abx/Therapy Injection 18:17:48 CDT CPT-J2550 Phenergan 25 mg (Promethazine) 16:48:23 CDT CPT-J1885 Toradol 60 mg 16:48:23 CDT CPT-84882 Wrist, right, comp 3V - XRAY USE ONLY 09:24:31 CDT CPT-74797 Abd compl w upright - XRAY USE ONLY 1 1:36:54 LOGISTICS SUPPLY OFFICER CPT-02867 UA w micro - LAB USE ONLY 17:06:46 CDT 2015 CPT-09155 [facility] Qual - LAB USE ONLY 17:06:46 CDT 05/06 CPT-45652 CMP - LAB USE ONLY 17:06:46 CDT CPT-55152 CBC with Diff - LAB USE ONLY 17:06:45 CDT 2 CPT-97489 Venipuncture Draw Fee 17:06:45 CDT CPT-LR Lesion Removal 19:53:27 CDT CPT-OV Office Visit 11:31:28 CDT CPT-51396 Tubersol 09:39:29 CDT CPT-J2550 Phenergan 25 mg (Promethazine) 13:59:02 LOGISTICS SUPPLY OFFICER CPT-J1885 Toradol 60 mg (Ketorolac) 13:59:02 LOGISTICS SUPPLY OFFICER 2012
--- OUTSIDE RECORDS SUMMARY | 2019-09-29 01:15 | XMS REPORT | Clinical Summary ---
Author Author Admin, Bethany Ayala [facility] Address Unknown Phone Unavailable Allergies, Adverse Reactions, [...] UNCERTAIN BEHAVIOR OF SKIN ICD-238.2 Inactive Checo oCnklin MD Abdominal pain, generalized ICD-789.07 Inactive Checo [...] RELEASE 1 daily with furosemide POTASSIUM CHLORIDE [id number] Active Paul Hamlin MD Active FUROSEMIDE 20 MG ORAL TABLET 1 daily for swelling FUROSEMIDE 99645361116 Active Paul Hamlin MD Active HYDROCHLOROTHIAZIDE 12.5 MG ORAL CAPSULE 1 po qd PRN Edema 01/10 HYDROCHLOROTHIAZIDE 37340261870 No Longer Active Paul Hamlin MD Active IBUPROFEN 800 MG ORAL TABLET 1 tab every 8 hours as needed for p ain IBUPROFEN 72626627616 No Longer Active Paul Hamlin MD Active PAROXETINE HCL 40 MG ORAL TABLET 1 po qd PAR OXETINE HCL 47712840805 Active Checo Conklin MD Active MIRALAX ORAL POWDER 8.5 to 17g po qd PRN Constipation POLYETHYLENE GLYCOL 3350 91425732268 No Longer Active Checo Conklin MD Active PROTONIX 40 MG ORAL TABLET DELAYED RELEASE 1 pill by m out daily, for acid reflux PANTOPRAZOLE SODIUM 04726815747 No Longer Activ e Corry Méndez LPN Active FLAGYL 500 MG ORAL TABLET 1 tablet by mouth bid 08/29 METRONIDAZOLE 95884145545 No Longer Active Corry Méndez LPN Active CLARITHROMYCIN 500 MG ORAL TABLET 1 tab po BID x 14 days CLARITHROMYCIN 33865533446 No Longer Active Corry Méndez LPN Active AMOXICILLIN 500 MG ORAL CAPSULE 2 po BID x 14 days for H. Pylori AMOXICILLIN 41345640282 No Longer Active Corry Méndez LPN Active FLUTICASONE PROPIONATE 50 MCG/ACT NASAL SUSPENSION 2 s prays/nostril qd PRN Congestion/Allergies FLUTICASONE PROPIONATE 6705852378 9 No Longer Active Checo Conklin MD Active AMOXICILLIN 500 MG ORAL CAPSULE 2 po BID x 10 days 201 01/15/27 AMOXICILLIN 26528062756 No Longer Active Checo Conklin MD Activ e CLARITIN 10 MG ORAL TABLET 1 tablet by mouth daily as needed for allergies LORATADINE 58335360684 No Longer Active Checo Ortiz MD Active BACTRIM DS 800-160 MG ORAL TABLET 1 tab by mouth twice daily 201 12/19/26 TRIMETHOPRIM-SULFAMETHOXAZOLE 67193343401 No Longer Active Ragini Carrillo MD Active DIFLUCAN 150 MG ORAL TABLET 1 tablet by mouth qod 2015 FLUCONAZOLE 16849225298 No Longer Active Efren Medel [employer] Act mike AZITHROMYCIN 250 MG ORAL TABLET 2 po qd x 1 day, then 1 po q d x 4 days AZITHROMYCIN 05105426560 No Longer Active Efren flores [employer] Active FLAGYL 500 MG ORAL TABLET 1 tablet by mouth bid 04/13 METRONIDAZOLE 13858479391 No Longer Active Checo Conklin MD Acti ve FOCALIN XR 10 MG ORAL CAPSULE EXTENDED RELEASE 24 HOUR 1 po q a.m. DEXMETHYLPHENIDATE HCL 67134299081 Active Checo Conklin MD Active MAGNESIUM CITRATE 1.745 GM/30ML ORAL SOLUTION 150ml po BID P RN Constipation MAGNESIUM CITRATE 34143075850 No Longer Active Checo Conklin MD Active BACTROBAN 2 % EXTERNAL CREAM Apply to affected area BID for up to 10 days MUPIROCIN CALCIUM 96991824686 No Longer Active Checo Conklin MD Active HYDROCODONE-ACETAMINOPHEN 5-325 MG ORAL TABLET 1 tab b y mouth every 6 hours as needed HYDROCODONE-ACETAMINOPHEN 78856488945 No Longer Active Checo Conklin MD Active IBUPROFEN 800 MG ORAL TABLET 1 tab every 8 hours with food 03/20 IBUPROFEN 66744933011 No Longer Active Checo Conklin MD Active DIFLUCAN 150 MG ORAL TABLET 1 tablet by mouth if neede d, hold until symptoms start FLUCONAZOLE 56626622123 No Longer Active Checo Conklin MD Active BACTRIM DS 800-160 MG ORAL TABLET 1 tab by mouth twice daily 201 11/23/03 TRIMETHOPRIM-SULFAMETHOXAZOLE 01990125463 No Longer Active K bernice Méndez LPN Active HYDROCODONE-ACETAMINOPHEN 5-325 MG ORAL TABLET 0.5 to 1 tab by mouth every 6 hours as needed HYDROCODONE-ACETAMINOPHEN 23198071606 No Longer Active Checo Conklin MD Active ONDANSETRON 8 MG ORAL TABLET DISINTEGRATING place one tablet on tongue and allow to dissolve every 6 hours as needed for vomitting ONDANSETRON 99680699877 No Longer Active Checo Conklin MD Activ e COMPRO 25 MG RECTAL SUPPOSITORY insert or apply one garza ppository rectally as directed every 12 hours as needed for nausea PROCHLORPERAZINE 05633408254 No Longer Active Checo Conklin MD A ctive SUMATRIPTAN SUCCINATE 100 MG ORAL TABLET Take one PRN for migran e SUMATRIPTAN SUCCINATE 07533630876 No Longer Active Checo Conklin MD Active TRAVEL SICKNESS 25 MG ORAL TABLET CHEWABLE chew and sw allow one tablet every 6 hours as needed MECLIZINE HCL 63994174320 No Longer A ctive Checo Conklin MD Active BUPROPION HCL ER (SR) 100 MG ORAL TABLET EXTENDED RELE ASE 12 HOUR take one tablet by mouth one time daily for one week then take 1 two times daily BUPROPION HCL 24304420504 No Longer Active Checo gallagher MD Active TERBINAFINE HCL 250 MG ORAL TABLET take one table PO one time da moises TERBINAFINE HCL 42334174717 No Longer Active Checo Conklin MD Active METOCLOPRAMIDE HCL 10 MG ORAL TABLET take one PO tid PRN nausea METOCLOPRAMIDE HCL 67639063871 No Longer Active Checo Conklin MD Active DICLOFENAC SODIUM 75 MG ORAL TABLET DELAYED RELEASE 1 tablet by mouth twice daily PRN Knee pain DICLOFENAC SODIUM 59658506970 No Longer Active Checo Conklin MD Active LAMISIL 250 MG ORAL TABLET 1 po qd TERBINAFI NE HCL 32524957603 No Longer Active Checo Conklin MD Active REGLAN 10 MG ORAL TABLET 1 po TID PRN Nausea 3 METOCLOPRAMIDE HCL 55015410754 No Longer Active Checo Conklin MD Active CELEXA 20 MG ORAL TABLET 1 tablet by mouth daily 09/26 CITALOPRAM HYDROBROMIDE 71223463432 No Longer Active Checo Conklin MD Active AZITHROMYCIN 250 MG ORAL TABLET 2 po qd x 1 day, then 1 po q d x 4 days AZITHROMYCIN 10777116441 No Longer Active Checo Ortiz MD Active HYDROCODONE-ACETAMINOPHEN 5-325 MG ORAL TABLET 1 po q 6hr PRN Pa in HYDROCODONE-ACETAMINOPHEN 36359929246 No Longer Active Lenora Conklin MD Active PHENAZOPYRIDINE HCL 200 MG ORAL TABLET take 1 tab po TID for bladder pain PHENAZOPYRIDINE HCL 88902641828 No Longer Active Joe Conklin MD Active CIPRO 500 MG ORAL TABLET 1 tablet by mouth twice daily CIPROFLOXACIN HCL 16536414841 No Longer Active Dangelo Rangel MD Active HYDROCODONE-ACETAMINOPHEN 5-325 MG ORAL TABLET 1/2 to 1 po q 4 hours prn cough HYDROCODONE-ACETAMINOPHEN 62430002561 No Longer Activ candy Rangel MD Active BACTRIM DS 800-160 MG ORAL TABLET 1 po BID x 7 days 29/04/10 SULFAMETHOXAZOLE-TRIMETHOPRIM 38478639685 No Longer Active Checo Conklin MD Active PREDNISONE 20 MG ORAL TABLET 2 tabs daily for 3 days, 1 tab daily for 3 days, 1/2 tab daily for 2 days PREDNISONE 24161739972 No Longer Active Checo Conklin MD Active TRIAMCINOLONE ACETONIDE 0.1 % EXTERNAL OINTMENT Apply to affected areas TID for up to 2 weeks TRIAMCINOLONE ACETONIDE 39875626706 No Longer Active Checo Conklin MD Active CEFDINIR 300 MG ORAL CAPSULE by mouth twice a day 2013 CEFDINIR 47895273166 No Longer Active Dangelo Rangel MD Acti ve BUPROPION HCL ER (SMOKING DET) 150 MG ORAL TABLET EXTE NDED RELEASE 12 HOUR 1 a day for 1 week then 1 twice a day BUPROPION HCL (SMOKING DETER) 10777949348 No Longer Active Checo Conklin MD Active SIMVASTATIN 20 MG ORAL TABLET 1 po qd SIMVASTAT IN 46887114746 Active Checo Conklin MD Active CHANTIX STARTING MONTH KARTHIK 0.5 MG X 11 & 1 MG X 42 ORA L TABLET 0.5mg daily for 3 days, then 0.5mg BID for 4 days, then 1mg BID VARENICLINE TARTRATE 58328622682 No Longer Active Checo Conklin MD Activ e XANAX 0.5 MG ORAL TABLET 1 po BID PRN anxiety A LPRAZOLAM 25695329144 Active Checo Conklin MD Active CONCERTA 18 MG ORAL TABLET EXTENDED RELEASE 1 po q a.m. METHYLPHENIDATE HCL 50826302965 No Longer Active Checo Conklin MD Active AMBIEN 5 MG ORAL TABLET 1 po qHS PRN Insomnia Z OLPIDEM TARTRATE 99210259380 Active Checo Conklin MD Active TRAZODONE HCL 100 MG ORAL TABLET 0.5 to 1 po qHS PRN Insomnia 20 30/07/08 TRAZODONE HCL 10636399922 No Longer Active Checo Conklin MD Active FIORICET 325-50-40 MG TAB 1 tablet by mouth four times daily as needed [id number] 15583939317 No Longer Active Checo Conklin MD Active PHENERGAN CREAM* 25mg applied to wrist q6hr PRN Nausea PHENERGAN CREAM* No Longer Active Checo Conklin MD A ctive FLONASE 50 MCG/ACT NASAL SUSPENSION 1 spray each nostril am and hs FLUTICASONE PROPIONATE 08775310242 No Longer Active Checo Conklin MD Active ANTIPYRINE-BENZOCAINE 5.4-1.4 % OTIC SOLUTION 1-2 drops in affec yohannes ear BENZOCAINE-ANTIPYRINE 53367504917 No Longer Active Checo Conklin MD Active CEFDINIR 300 MG ORAL CAPSULE 1 po bid CEFDINIR 91956080043 No Longer Active Checo Conklin MD Active PREDNISONE 20 MG ORAL TABLET 2 tabs daily for 3 days, 1 tab daily for 3 days, 1/2 tab daily for 2 days PREDNISONE 56094350997 No Longer Active Checo Conklin MD Active AZITHROMYCIN 250 MG ORAL TABLET 2 po qd x 1 day, then 1 po q d x 4 days AZITHROMYCIN 55594065842 No Longer Active Checo Ortiz MD Active PREDNISONE 20 MG ORAL TABLET 2 tabs daily for 3 days, 1 tab daily for 3 days, 1/2 tab daily for 2 days PREDNISONE 56067153075 No Longer Active Checo Conklin MD Active ZITHROMAX Z-KARTHIK 250 MG ORAL TABLET 2 today, then 1 daily for 4 d ays AZITHROMYCIN 00514234498 No Longer Active Paul Hamlin MD Active FOCALIN XR 10 MG ORAL CAPSULE EXTENDED RELEASE 24 HOUR 1 po q a. m. DEXMETHYLPHENIDATE HCL 08091391493 No Longer Active Paul Hamlin MD Active PERCOCET 10-325 MG ORAL TABLET 1 tablet every 6 hours as needed for pain OXYCODONE-ACETAMINOPHEN 88927852921 No Longer Active Paul Hamlin MD Active LORTAB 5-500 MG ORAL TABLET 1/2 to 1 tablet by mouth e very 4 hours as needed for pain HYDROCODONE-ACETAMINOPHEN 93583653073 No Longer Active Checo Conklin MD Active FOCALIN XR 15 MG ORAL CAPSULE EXTENDED RELEASE 24 HOUR 1 po q a. m. DEXMETHYLPHENIDATE HCL 60834115051 No Longer Active Checo Conklin MD Active ZOFRAN ODT 4 MG ORAL TABLET DISINTEGRATING 1 po q6hr PRN Nausea ONDANSETRON 80953305594 No Longer Active Checo Conklin MD Active PERCOCET 5-325 MG ORAL TABLET 1 tablet by mouth every 6 hour s as needed OXYCODONE-ACETAMINOPHEN 75810333025 No Longer Active Checo Conklin MD Active PYRIDIUM 200 MG ORAL TABLET take 1 tab po TID prn urinary pain. PHENAZOPYRIDINE HCL 12061135687 No Longer Active Checo Joshua Active FLUCONAZOLE 150 MG ORAL TABLET take 1 tab po qday once FLUCONAZOLE 34970536070 No Longer Active Dangelo Rangel MD Acti ve CIPRO 500 MG ORAL TABLET 1 tablet by mouth twice daily CIPROFLOXACIN HCL 23818528815 No Longer Active Dangelo Rangel MD Active PYRIDIUM 200 MG ORAL TABLET take 1 tab po TID prn urinary pain. PYRIDIUM 200 MG ORAL TABLET 1421332 PHENAZOPYRIDINE HCL Inactive PERCOCET 5-325 MG ORAL TABLET 1 tablet by mouth every 6 hour s as needed PERCOCET 5-325 MG ORAL TABLET 5950467 OXYCODONE-ACETAMINOPHEN Inactive ZOFRAN ODT 4 MG ORAL TABLET DISINTEGRATING 1 po q6hr PRN Nausea ZOFRAN ODT 4 MG ORAL TABLET DISINTEGRATING 552020 ONDAN SETRON Inactive FOCALIN XR 15 MG [...] for pain PERCOCET 10-325 MG ORAL TABLET 8199985 OXYCODONE-ACETAMI NOPHEN Inactive FOCALIN XR 10 MG ORAL CAPSULE EXTENDED RELEASE 24 HOUR 1 po q a. m. FOCALIN XR 10 MG ORAL CAPSULE EXTENDED RELEASE 24 HOUR DEXMETHYLPHENIDATE HCL Inactive CEFDINIR 300 MG ORAL CAPSULE 1 po bid CEFDINI R 300 MG ORAL CAPSULE 364188 CEFDINIR Inactive ANTIPYRINE-BENZOCAINE 5.4-1.4 % OTIC SOLUTION 1-2 drops in affec yohannes ear ANTIPYRINE-BENZOCAINE 5.4-1.4 % OTIC SOLUTION BENZOCAINE-ANTIPYRINE Inactive FLONASE 50 MCG/ACT NASAL SUSPENSION 1 spray each nostril am and hs FLONASE 50 MCG/ACT NASAL SUSPENSION 2721397 FLUTICASONE PROPIONATE I nactive PHENERGAN CREAM* 25mg applied to wrist q6hr PRN Nausea PHENERGAN CREAM* Inactive FIORICET 325-50-40 MG TAB 1 tablet by mouth four times daily as needed FIORICET 325-50-40 MG TAB ACETAMINOPHEN-C AFF-BUTALBITAL Inactive TRAZODONE HCL 100 MG ORAL TABLET 0.5 to 1 po qHS PRN Insomnia 20 30/07/08 TRAZODONE HCL 100 MG ORAL TABLET 680117 TRAZODONE HCL Inactive CONCERTA 18 MG ORAL [...] cough HYDROCODONE-ACETAMINOPHEN 5-325 MG ORAL TABLET 8 20097 HYDROCODONE-ACETAMINOPHEN Inactive PHENAZOPYRIDINE HCL 200 MG ORAL TABLET take 1 tab po TID for bladder pain PHENAZOPYRIDINE HCL 200 MG ORAL TABLET 7841967 PHENAZOPYRIDINE HCL Inactive HYDROCODONE-ACETAMINOPHEN 5-325 MG ORAL TABLET 1 po q 6hr PRN Pa in HYDROCODONE-ACETAMINOPHEN 5-325 MG ORAL TABLET 887278 HYDROCODONE-ACETAMINOPHEN Inactive CELEXA 20 MG ORAL TABLET 1 tablet by mouth daily 09/26 CELEXA 20 MG ORAL TABLET 631024 CITALOPRAM HYDROBROMIDE Inactive REGLAN 10 MG ORAL TABLET 1 po TID PRN Nausea 3 REGLAN 10 MG ORAL TABLET 227563 METOCLOPRAMIDE HCL Inactive LAMISIL 250 MG ORAL TABLET 1 po qd L AMISIL 250 MG ORAL TABLET 294573 TERBINAFINE HCL Inactive DICLOFENAC SODIUM 75 MG ORAL TABLET DELAYED RELEASE 1 tablet by mouth twice daily PRN Knee pain DICLOFENAC SODIUM 75 MG ORAL TABLET DELAYED RELEASE 994521 DICLOFENAC SODIUM Inactive METOCLOPRAMIDE HCL 10 MG ORAL TABLET take one PO tid PRN nausea METOCLOPRAMIDE HCL 10 MG ORAL TABLET 282069 METOCLOPRAM ZACH HCL Inactive TERBINAFINE HCL 250 MG ORAL TABLET take one table PO one time da moises TERBINAFINE HCL 250 MG ORAL TABLET 028648 TERBINAFINE H CL Inactive BUPROPION HCL ER [...] SICKNESS 25 M G ORAL TABLET CHEWABLE 362688 MECLIZINE HCL Inactive SUMATRIPTAN SUCCINATE 100 MG ORAL TABLET Take one PRN for migran e SUMATRIPTAN SUCCINATE 100 MG ORAL TABLET 005647 SUMATRIPTAN SUCCINATE Inactive COMPRO 25 MG RECTAL SUPPOSITORY insert or apply one garza ppository rectally as directed every 12 hours as needed for nausea COMPRO 25 MG RECTAL SUPPOSITORY 526059 PROCHLORPERAZINE Inactive ONDANSETRON 8 MG ORAL TABLET DISINTEGRATING place one tablet on tongue and allow to dissolve every 6 hours as needed for vomitting ONDANSETRON 8 MG ORAL TABLET DISINTEGRATING 692180 ONDANSETRON Inactive HYDROCODONE-ACETAMINOPHEN 5-325 MG ORAL TABLET 0.5 to 1 tab by mouth every 6 hours as needed HYDROCODONE-ACETAMIN OPHEN 5-325 MG ORAL TABLET 411242 HYDROCODONE-ACETAMINOPHEN Inactive BACTRIM DS 800-160 MG ORAL TABLET 1 tab by mouth twice daily 201 11/23/03 BACTRIM DS 800-160 MG ORAL TABLET 349984 TRIMETHOPRIM-SULFAMETHOXAZOLE Inactive DIFLUCAN 150 MG ORAL TABLET 1 tablet by mouth if neede d, hold until symptoms start DIFLUCAN 150 MG ORAL TABLET 041878 FLUCONAZ OLE Inactive IBUPROFEN 800 MG ORAL TABLET 1 tab every 8 hours with food 03/20 IBUPROFEN 800 MG ORAL TABLET 950719 IBUPROFEN Krupa ctive HYDROCODONE-ACETAMINOPHEN 5-325 MG ORAL TABLET 1 tab b y mouth every 6 hours as needed HYDROCODONE-ACETAMINOPHEN 5-325 MG ORAL TABLET 883098 HYDROCODONE-ACETAMINOPHEN Inactive BACTROBAN 2 % EXTERNAL CREAM Apply to affected area BID for up to 10 days BACTROBAN 2 % EXTERNAL CREAM 963557 MUPIROCIN CA LCIUM Inactive MAGNESIUM CITRATE 1.745 GM/30ML ORAL SOLUTION 150ml po BID P RN Constipation MAGNESIUM CITRATE 1.745 GM/30ML ORAL SOLUTION 10 04321 MAGNESIUM CITRATE Inactive DIFLUCAN 150 MG ORAL TABLET 1 tablet by mouth qod 2015 DIFLUCAN 150 MG ORAL TABLET 591009 FLUCONAZOLE Inactive BACTRIM DS 800-160 MG ORAL TABLET 1 tab by mouth twice daily 201 12/19/26 BACTRIM DS 800-160 MG ORAL TABLET 648357 TRIMETHOPRIM-SULFAMETHOXAZOLE Inactive CLARITIN 10 MG ORAL TABLET 1 tablet by mouth daily as needed for allergies CLARITIN 10 MG ORAL TABLET 509501 LORATADINE I nactive FLUTICASONE PROPIONATE 50 MCG/ACT NASAL SUSPENSION 2 s prays/nostril qd PRN Congestion/Allergies FLUTICASONE PROPION ATE 50 MCG/ACT NASAL SUSPENSION 4571607 FLUTICASONE PROPIONATE Inactive MIRALAX ORAL POWDER 8.5 to 17g po qd PRN Constipation MIRALAX ORAL POWDER 790060 POLYETHYLENE GLYCOL 3350 Inactive IBUPROFEN 800 MG ORAL TABLET 1 tab every 8 hours as needed for p ain IBUPROFEN 800 MG ORAL TABLET 799422 IBUPROFEN Krupa ctive HYDROCHLOROTHIAZIDE 12.5 MG ORAL CAPSULE 1 po qd PRN Edema 01/10 HYDROCHLOROTHIAZIDE 12.5 MG ORAL CAPSULE 522158 HYDROCH LOROTHIAZIDE Inactive CIPRO 500 MG ORAL TABLET 1 tablet by mouth twice daily CIPRO 500 MG ORAL TABLET 756471 CIPROFLOXACIN HCL Inactive FLUCONAZOLE 150 MG ORAL TABLET take 1 tab po qday once FLUCONAZOLE 150 MG ORAL TABLET 034676 FLUCONAZOLE Inactive ZITHROMAX Z-KARTHIK 250 MG ORAL TABLET 2 today, then 1 daily for 4 d ays ZITHROMAX Z-KARTHIK 250 MG ORAL TABLET 268325 AZITHROMYCIN Inactive PREDNISONE 20 MG ORAL TABLET 2 tabs daily for 3 days, 1 tab daily for 3 days, 1/2 tab daily for 2 days PREDNISONE 20 MG ORAL T ABLET 804728 PREDNISONE Inactive AZITHROMYCIN 250 MG ORAL TABLET 2 po qd x 1 day, then 1 po q d x 4 days AZITHROMYCIN 250 MG ORAL TABLET 800130 AZITHROMY SPARKLE Inactive PREDNISONE 20 MG ORAL TABLET 2 tabs daily for 3 days, 1 tab daily for 3 days, 1/2 tab daily for 2 days PREDNISONE 20 MG ORAL TABLET 127079 PREDNISONE Inactive CEFDINIR 300 MG ORAL CAPSULE by mouth twice a day 2013 CEFDINIR 300 MG ORAL CAPSULE 305899 CEFDINIR Inactive TRIAMCINOLONE ACETONIDE 0.1 % EXTERNAL OINTMENT Apply to affected areas TID for up to 2 weeks TRIAMCINOLONE ACETON ZACH 0.1 % EXTERNAL OINTMENT 7502430 TRIAMCINOLONE ACETONIDE Inactive PREDNISONE 20 MG ORAL TABLET 2 tabs daily for 3 days, 1 tab daily for 3 days, 1/2 tab daily for 2 days PREDNISONE 20 MG ORAL T ABLET 468367 PREDNISONE Inactive BACTRIM DS 800-160 MG ORAL TABLET 1 po BID x 7 days 29/04/10 BACTRIM DS 800-160 MG ORAL TABLET 560535 SULFAMETHOXAZOLE-TRIMETHOP RIM Inactive CIPRO 500 MG ORAL TABLET 1 tablet by mouth twice daily CIPRO 500 MG ORAL TABLET 964385 CIPROFLOXACIN HCL Inactive AZITHROMYCIN 250 MG ORAL TABLET 2 po qd x 1 day, then 1 po q d x 4 days AZITHROMYCIN 250 MG ORAL TABLET 914326 AZITHROMY SPARKLE Inactive FLAGYL 500 MG ORAL TABLET 1 tablet by mouth bid 04/13 FLAGYL 500 MG ORAL TABLET 842070 METRONIDAZOLE Inactive AZITHROMYCIN 250 MG ORAL TABLET 2 po qd x 1 day, then 1 po q d x 4 days AZITHROMYCIN 250 MG ORAL TABLET 067662 AZITHROMY SPARKLE Inactive AMOXICILLIN 500 MG ORAL CAPSULE 2 po BID x 10 days 201 01/15/27 AMOXICILLIN 500 MG ORAL CAPSULE 951244 AMOXICILLIN Inactive AMOXICILLIN 500 MG ORAL CAPSULE 2 po BID x 14 days for H. Pylori AMOXICILLIN 500 MG ORAL CAPSULE 940234 AMOXICILLIN Inactive CLARITHROMYCIN 500 MG ORAL TABLET 1 tab po BID x 14 days CLARITHROMYCIN 500 MG ORAL TABLET 670593 CLARITHROMYCIN Inacti ve FLAGYL 500 MG ORAL TABLET 1 tablet by mouth bid 08/29 FLAGYL 500 MG ORAL TABLET 128334 METRONIDAZOLE Inactive PROTONIX 40 MG ORAL TABLET DELAYED RELEASE 1 pill by m outh daily, for acid reflux PROTONIX 40 MG ORAL TABLET DELAYED RELEAS E 470947 PANTOPRAZOLE SODIUM Inactive Immunizations Vaccine Administration Date [...] ... - Chemistry sodium, serum 138 mmol/L 235-074 9397/06/27 carbon dioxide, venous blood 30.3 mmol/L 21.0-32 [...] ... - Chemistry sodium, serum 139 mmol/L 783-888 1499/11/28 carbon dioxide, venous blood 26.0 mmol/L 21.0-32 [...] 5.0-8.5 Encounters Code Encounter Date Provider Facility CPT-23971 Level 3 Est. Patient 16:46:51 CDT Thomas reynolds DO [facility] CPT-28768 [id number] Vst-Est Level III 14:40:49 CDT Paul Hamlin MD [facility] CPT-54396 Level 4 Est. Patient 11:08:43 CDT Checo Conklin MD [facility]-87767 [id number] Vst-Est Level III 09:37:41 CDT Dangelo Rangel MD [facility] CPT-70693 Level 4 Est. Patient 08:57:51 USABILITY STRATEGIST Checo Conklin MD [facility] CPT-75502 Level 3 Est. Patient 11:24:55 USABILITY STRATEGIST Efren almendarez [facility] CPT-94680 Level 3 Est. Patient 13:05:44 CDT Paul Hamlin MD [facility] CPT-53593 Level 3 Est. Patient 11:29:55 CDT Checo Conklin MD [facility] CPT-10382 Level 4 Est. Patient 11:08:12 USABILITY STRATEGIST Checo Conklin MD [facility] CPT-27162 Level 4 Est. Patient 16:06:48 USABILITY STRATEGIST Checo Conklin MD [facility] CPT-19439 Level 3 Est. Patient 09:11:49 CDT Efren almendarez [facility] CPT-50363 Level 2 Est. Patient 19:53:27 CDT Tanner hill MD [facility] CPT-62278 Level 3 Est. Patient 09:15:34 CDT Efren almendarez [facility]-52568 Level 3 Est. Patient 11:28:51 USABILITY STRATEGIST Efren almendarez APRN [facility] CPT-70891 Level 4 Est. Patient 13:55:46 USABILITY STRATEGIST Checo Conklin MD [facility] CPT-43803 Level 4 Est. Patient 17:10:53 CDT Checo Conklin MD [facility] CPT-01724 Level 3 Est. Patient 15:56:22 CDT Checo Conklin MD [facility] CPT-58610 Level 3 Est. Patient 15:29:07 CDT Checo Conklin MD [facility] CPT-41244 Level 3 Est. Patient 14:38:41 CDT Checo Conlkin MD [facility] CPT-74411 Level 3 Est. Patient 15:22:03 USABILITY STRATEGIST Thomas reynolds DO [facility] CPT-16408 Level 3 Est. Patient 13:34:17 USABILITY STRATEGIST Checo Conklin MD [facility] CPT-63015 Level 3 Est. Patient 12:29:32 CDT Dangelo arroyo MD [facility] CPT-53344 Level 3 Est. Patient 16:53:02 CDT Checo Conklin MD [facility] CPT-51463 Level 3 Est. Patient 16:37:13 CDT Checo Conklin MD [facility] CPT-32206 Level 3 Est. Patient 16:16:59 CDT Paul Hamlin MD [facility] CPT-98512 Level 3 Est. Patient 14:20:13 CDT Dangelo arroyo MD [facility] CPT-63665 Level 4 Est. Patient 11:29:33 CDT Checo Conklin MD [facility] CPT-45504 Level 3 Est. Patient 17:08:31 CDT Checo Conklin MD [facility] CPT-27873 Level 3 Est. Patient 16:50:42 USABILITY STRATEGIST Checo Conklin MD [facility] CPT-63686 Level 4 Est. Patient 09:26:08 USABILITY STRATEGIST Checo Conklin MD [facility] CPT-10952 Level 3 Est. Patient 11:37:10 CDT Checo Conklin MD [facility] CPT-54186 Level 4 Est. Patient 14:07:38 CDT Checo Conklin MD [facility] CPT-57395 Level 3 Est. Patient 09:54:41 CDT Checo Conklin MD [facility] CPT-98510 Level 3 Est. Patient 11:10:54 CDT Paul Hamlin MD [facility] CPT-34295 Level 3 Est. Patient 14:16:56 USABILITY STRATEGIST Checo Conklin MD [facility] CPT-23551 Level 3 Est. Patient 11:04:11 USABILITY STRATEGIST Checo Conklin MD [facility] CPT-51086 Level 3 Est. Patient 17:09:26 CDT Dangelo arroyo MD [facility] CPT-77761 Level 3 Est. Patient 16:54:37 CDT Checo Conklin MD [facility] Procedures Code Procedure Name Date Entry Date Standard Desc ription CPT-20652 Abx/Therapy Injection 09:52:15 CDT CPT-28223 Abx/Therapy Injection 18:17:48 CDT CPT-J2550 Phenergan 25 mg (Promethazine) 16:48:23 CDT CPT-J1885 Toradol 60 mg 16:48:23 CDT CPT-76107 Wrist, right, comp 3V - XRAY USE ONLY 09:24:31 CDT CPT-49454 Abd compl w upright - XRAY USE ONLY 1 1:36:54 USABILITY STRATEGIST CPT-93914 UA w micro - LAB USE ONLY 17:06:46 CDT 2015 CPT-96331 BHCG Qual - LAB USE ONLY 17:06:46 CDT 05/06 CPT-98761 CMP - LAB USE ONLY 17:06:46 CDT CPT-49713 CBC with Diff - LAB USE ONLY 17:06:45 CDT 2 CPT-99377 Venipuncture Draw Fee 17:06:45 CDT CPT-LR Lesion Removal 19:53:27 CDT CPT-OV Office Visit 11:31:28 CDT CPT-68340 Tubersol 09:39:29 CDT CPT-J2550 Phenergan 25 mg (Promethazine) 13:59:02 USABILITY STRATEGIST CPT-J1885 Toradol 60 mg (Ketorolac) 13:59:02 USABILITY STRATEGIST 2012
--- OUTSIDE RECORDS SUMMARY | 2019-09-29 01:16 | XMS REPORT | Clinical Summary ---
Author Author Admin, Bethany Gonzales Organization [employer] Address Unknown Phone Unavailable Allergies, Adverse Reactions, [...] musculoskeletal systems Abdominal pain, generalized 789.07 Resolved Chceo Conklin MD Abdominal pain, generalized Nausea 787.02 [...] DO Body Mass Index 26.0-26.9, adult FH DIABETES ICD-V18.0 Inactive Checo Conklin MD 201 08/27/26 CONCUSSION ICD-850.9 Inactive Checo Joshua FH BREAST CANCER ICD-V16.3 Inactive Checo Joshua UTI ICD-599.0 Inactive Checo Conklin MD 2013 ABDOMINAL PAIN RIGHT LOWER QUADRANT ICD-789.03 Inactive Checo Conklin MD HEADACHE, TENSION ICD-307.81 Inactive Checo Conklin MD Onychomycosis, toenails ICD-110.1 Ozzy Conklin MD Hypoglycemia, unspecified ICD-251.2 Inactive Checo Conklin MD Insomnia ICD-780.52 Inactive Checo Joshua PHARYNGITIS ICD-462 Inactive Checo Conklin MD Breast mass, right [...] Bacterial vaginosis ICD-616.10 Inactive Lenora Conklin MD BRONCHITIS, ACUTE ICD-466.0 Inactive Checo gallagher MD Abdominal pain ICD-789.00 Inactive Checo ngo MD Pedal edema ICD-782.3 Inactive Checo Conklin MD 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 Checo Conklin MD Abdominal pain, generalized ICD-789.07 Inactive Checo Conklin MD Urinary frequency ICD-788.41 Inactive Checo Conklin MD Pharyngitis ICD-462 Inactive Checo Conklin MD Cough ICD-786.2 Inactive Checo Conklin MD 2016 Abdominal pain, generalized ICD-789.07 Inactive Checo Conklin MD Nausea ICD-787.02 Inactive Checo Conklin MD 201 02/15/12 Sinusitis, acute ICD-461.9 Inactive Checo Ortiz MD Repeated falls ICD-781.99 Inactive Checo ngo MD Body Mass Index 25.0-25.9 Adult Inac tive Paul Hamlin MD Medication List Medication Instructions Start Date Stop Date Generic Name NDC Status Provider Patient Instruction KLOR-CON 10 10 MEQ ORAL TABLET EXTENDED RELEASE 1 daily with furosemide POTASSIUM CHLORIDE [id number] Active Paul Hamlin MD Active FUROSEMIDE 20 MG ORAL TABLET 1 daily for swelling FUROSEMIDE 69762513093 Active Paul Hamlin MD Active HYDROCHLOROTHIAZIDE 12.5 MG ORAL CAPSULE 1 po qd PRN Edema 01/10 HYDROCHLOROTHIAZIDE 17865937491 No Longer Active Paul Hamlin MD Active IBUPROFEN 800 MG ORAL TABLET 1 tab every 8 hours as needed for p ain IBUPROFEN 91620073465 No Longer Active Paul Hamlin MD Active PAROXETINE HCL 40 MG ORAL TABLET 1 po qd PAR OXETINE HCL 78003614869 Active Checo Conklin MD Active MIRALAX ORAL POWDER 8.5 to 17g po qd PRN Constipation POLYETHYLENE GLYCOL 3350 05557958765 No Longer Active Checo Conklin MD Active PROTONIX 40 MG ORAL TABLET DELAYED RELEASE 1 pill by m outh daily, for acid reflux PANTOPRAZOLE SODIUM 80075838796 No Longer Activ e Corry Méndez LPN Active FLAGYL 500 MG ORAL TABLET 1 tablet by mouth bid 08/29 METRONIDAZOLE 66559293626 No Longer Active Corry Méndez LPN Active CLARITHROMYCIN 500 MG ORAL TABLET 1 tab po BID x 14 days CLARITHROMYCIN 59900874878 No Longer Active Corry Méndez LPN Active AMOXICILLIN 500 MG ORAL CAPSULE 2 po BID x 14 days for H. Pylori AMOXICILLIN 05315155148 No Longer Active Corry Méndez LPN Active FLUTICASONE PROPIONATE 50 MCG/ACT NASAL SUSPENSION 2 s prays/nostril qd PRN Congestion/Allergies FLUTICASONE PROPIONATE 1414763777 9 No Longer Active Checo Conklin MD Active AMOXICILLIN 500 MG ORAL CAPSULE 2 po BID x 10 days 201 01/15/27 AMOXICILLIN 81529970394 No Longer Active Checo Conklin MD Activ e CLARITIN 10 MG ORAL TABLET 1 tablet by mouth daily as needed for allergies LORATADINE 17455329065 No Longer Active Checo Ortiz MD Active BACTRIM DS 800-160 MG ORAL TABLET 1 tab by mouth twice daily 201 12/19/26 TRIMETHOPRIM-SULFAMETHOXAZOLE 87794918513 No Longer Active Ragini Carrillo MD Active DIFLUCAN 150 MG ORAL TABLET 1 tablet by mouth qod 2015 FLUCONAZOLE 09199961064 No Longer Active Efren Medel MEDICAL BILLING AND CODING SPECIALIST Act mike AZITHROMYCIN 250 MG ORAL TABLET 2 po qd x 1 day, then 1 po q d x 4 days AZITHROMYCIN 20059727623 No Longer Active Efern flores MEDICAL BILLING AND CODING SPECIALIST Active FLAGYL 500 MG ORAL TABLET 1 tablet by mouth bid 04/13 METRONIDAZOLE 38637491503 No Longer Active Checo Conklin MD Acti ve FOCALIN XR 10 MG ORAL CAPSULE EXTENDED RELEASE 24 HOUR 1 po q a.m. DEXMETHYLPHENIDATE HCL 44958341175 Active Checo Conklin MD Active MAGNESIUM CITRATE 1.745 GM/30ML ORAL SOLUTION 150ml po BID P RN Constipation MAGNESIUM CITRATE 58125210277 No Longer Active Checo Conklin MD Active BACTROBAN 2 % EXTERNAL CREAM Apply to affected area BID for up to 10 days MUPIROCIN CALCIUM 92798862811 No Longer Active Checo Conklin MD Active HYDROCODONE-ACETAMINOPHEN 5-325 MG ORAL TABLET 1 tab b y mouth every 6 hours as needed HYDROCODONE-ACETAMINOPHEN 58340274748 No Longer Active Checo Conklin MD Active IBUPROFEN 800 MG ORAL TABLET 1 tab every 8 hours with food 03/20 IBUPROFEN 78043398199 No Longer Active Checo Conklin MD Active DIFLUCAN 150 MG ORAL TABLET 1 tablet by mouth if neede d, hold until symptoms start FLUCONAZOLE 04248585805 No Longer Active Checo Conklin MD Active BACTRIM DS 800-160 MG ORAL TABLET 1 tab by mouth twice daily 201 11/23/03 TRIMETHOPRIM-SULFAMETHOXAZOLE 03902246341 No Longer Active K bernice Méndez LPN Active HYDROCODONE-ACETAMINOPHEN 5-325 MG ORAL TABLET 0.5 to 1 tab by mouth every 6 hours as needed HYDROCODONE-ACETAMINOPHEN 94795459682 No Longer Active Checo Conklin MD Active ONDANSETRON 8 MG ORAL TABLET DISINTEGRATING place one tablet on tongue and allow to dissolve every 6 hours as needed for vomitting ONDANSETRON 46137188617 No Longer Active Checo Conklin MD Activ e COMPRO 25 MG RECTAL SUPPOSITORY insert or apply one garza ppository rectally as directed every 12 hours as needed for nausea PROCHLORPERAZINE 35249283558 No Longer Active Checo Conklin MD A ctive SUMATRIPTAN SUCCINATE 100 MG ORAL TABLET Take one PRN for migran e SUMATRIPTAN SUCCINATE 32838297568 No Longer Active Checo Conklin MD Active TRAVEL SICKNESS 25 MG ORAL TABLET CHEWABLE chew and sw allow one tablet every 6 hours as needed MECLIZINE HCL 58442161262 No Longer A ctive Checo Conklin MD Active BUPROPION HCL ER (SR) 100 MG ORAL TABLET EXTENDED RELE ASE 12 HOUR take one tablet by mouth one time daily for one week then take 1 two times daily BUPROPION HCL 99834180832 No Longer Active Checo gallagher MD Active TERBINAFINE HCL 250 MG ORAL TABLET take one table PO one time da moises TERBINAFINE HCL 78594950155 No Longer Active Checo Conklin MD Active METOCLOPRAMIDE HCL 10 MG ORAL TABLET take one PO tid PRN nausea METOCLOPRAMIDE HCL 95282200496 No Longer Active Checo Conklin MD Active DICLOFENAC SODIUM 75 MG ORAL TABLET DELAYED RELEASE 1 tablet by mouth twice daily PRN Knee pain DICLOFENAC SODIUM 91360268310 No Longer Active Checo Conklin MD Active LAMISIL 250 MG ORAL TABLET 1 po qd TERBINAFI NE HCL 89739871484 No Longer Active Checo Conklin MD Active REGLAN 10 MG ORAL TABLET 1 po TID PRN Nausea 3 METOCLOPRAMIDE HCL 36893573883 No Longer Active Checo Conklin MD Active CELEXA 20 MG ORAL TABLET 1 tablet by mouth daily 09/26 CITALOPRAM HYDROBROMIDE 60973674867 No Longer Active Checo Conklin MD Active AZITHROMYCIN 250 MG ORAL TABLET 2 po qd x 1 day, then 1 po q d x 4 days AZITHROMYCIN 52352450083 No Longer Active Checo Ortiz MD Active HYDROCODONE-ACETAMINOPHEN 5-325 MG ORAL TABLET 1 po q 6hr PRN Pa in HYDROCODONE-ACETAMINOPHEN 63156301370 No Longer Active Lenora Conklin MD Active PHENAZOPYRIDINE HCL 200 MG ORAL TABLET take 1 tab po TID for bladder pain PHENAZOPYRIDINE HCL 37046435806 No Longer Active Joe Conklin MD Active CIPRO 500 MG ORAL TABLET 1 tablet by mouth twice daily CIPROFLOXACIN HCL 97604312544 No Longer Active Dangelo Rangel MD Active HYDROCODONE-ACETAMINOPHEN 5-325 MG ORAL TABLET 1/2 to 1 po q 4 hours prn cough HYDROCODONE-ACETAMINOPHEN 76253321156 No Longer Activ candy Rangel MD Active BACTRIM DS 800-160 MG ORAL TABLET 1 po BID x 7 days 29/04/10 SULFAMETHOXAZOLE-TRIMETHOPRIM 15800072475 No Longer Active Checo Conklin MD Active PREDNISONE 20 MG ORAL TABLET 2 tabs daily for 3 days, 1 tab daily for 3 days, 1/2 tab daily for 2 days PREDNISONE 44222870721 No Longer Active Checo Conklin MD Active TRIAMCINOLONE ACETONIDE 0.1 % EXTERNAL OINTMENT Apply to affected areas TID for up to 2 weeks TRIAMCINOLONE ACETONIDE 54162775345 No Longer Active Checo Conklin MD Active CEFDINIR 300 MG ORAL CAPSULE by mouth twice a day 2013 CEFDINIR 54742228153 No Longer Active Dangelo Rangel MD Acti ve BUPROPION HCL ER (SMOKING DET) 150 MG ORAL TABLET EXTE NDED RELEASE 12 HOUR 1 a day for 1 week then 1 twice a day BUPROPION HCL (SMOKING DETER) 15574422289 No Longer Active Checo Conklin MD Active SIMVASTATIN 20 MG ORAL TABLET 1 po qd SIMVASTAT IN 83366706783 Active Checo Conklin MD Active CHANTIX STARTING MONTH KARTHIK 0.5 MG X 11 & 1 MG X 42 ORA L TABLET 0.5mg daily for 3 days, then 0.5mg BID for 4 days, then 1mg BID VARENICLINE TARTRATE 29864630213 No Longer Active Checo Conklin MD Activ e XANAX 0.5 MG ORAL TABLET 1 po BID PRN anxiety A LPRAZOLAM 27897097736 Active Checo Conklin MD Active CONCERTA 18 MG ORAL TABLET EXTENDED RELEASE 1 po q a.m. METHYLPHENIDATE HCL 06637329290 No Longer Active Checo Conklin MD Active AMBIEN 5 MG ORAL TABLET 1 po qHS PRN Insomnia Z OLPIDEM TARTRATE 17852083693 Active Checo Conklin MD Active TRAZODONE HCL 100 MG ORAL TABLET 0.5 to 1 po qHS PRN Insomnia 20 30/07/08 TRAZODONE HCL 90534601415 No Longer Active Checo Conklin MD Active FIORICET 325-50-40 MG TAB 1 tablet by mouth four times daily as needed [id number] 17107593549 No Longer Active Checo Conklin MD Active PHENERGAN CREAM* 25mg applied to wrist q6hr PRN Nausea PHENERGAN CREAM* No Longer Active Checo Conklin MD A ctive FLONASE 50 MCG/ACT NASAL SUSPENSION 1 spray each nostril am and hs FLUTICASONE PROPIONATE 42013606663 No Longer Active Checo Conklin MD Active ANTIPYRINE-BENZOCAINE 5.4-1.4 % OTIC SOLUTION 1-2 drops in affec yohannes ear BENZOCAINE-ANTIPYRINE 30426971060 No Longer Active Checo Conklin MD Active CEFDINIR 300 MG ORAL CAPSULE 1 po bid CEFDINIR 54188146767 No Longer Active Checo Conklin MD Active PREDNISONE 20 MG ORAL TABLET 2 tabs daily for 3 days, 1 tab daily for 3 days, 1/2 tab daily for 2 days PREDNISONE 68460666434 No Longer Active Checo Conklin MD Active AZITHROMYCIN 250 MG ORAL TABLET 2 po qd x 1 day, then 1 po q d x 4 days AZITHROMYCIN 66955070779 No Longer Active Checo Ortiz MD Active PREDNISONE 20 MG ORAL TABLET 2 tabs daily for 3 days, 1 tab daily for 3 days, 1/2 tab daily for 2 days PREDNISONE 29645276218 No Longer Active Checo Conklin MD Active ZITHROMAX Z-KARTHIK 250 MG ORAL TABLET 2 today, then 1 daily for 4 d ays AZITHROMYCIN 35850210255 No Longer Active Paul Hamlin MD Active FOCALIN XR 10 MG ORAL CAPSULE EXTENDED RELEASE 24 HOUR 1 po q a. m. DEXMETHYLPHENIDATE HCL 24675397144 No Longer Active Paul Hamlin MD Active PERCOCET 10-325 MG ORAL TABLET 1 tablet every 6 hours as needed for pain OXYCODONE-ACETAMINOPHEN 04365929598 No Longer Active Paul Hamlin MD Active LORTAB 5-500 MG ORAL TABLET 1/2 to 1 tablet by mouth e very 4 hours as needed for pain HYDROCODONE-ACETAMINOPHEN 88897766290 No Longer Active Checo Conklin MD Active FOCALIN XR 15 MG ORAL CAPSULE EXTENDED RELEASE 24 HOUR 1 po q a. m. DEXMETHYLPHENIDATE HCL 12863718918 No Longer Active Checo Conklin MD Active ZOFRAN ODT 4 MG ORAL TABLET DISINTEGRATING 1 po q6hr PRN Nausea ONDANSETRON 86369230116 No Longer Active Checo Conklin MD Active PERCOCET 5-325 MG ORAL TABLET 1 tablet by mouth every 6 hour s as needed OXYCODONE-ACETAMINOPHEN 36569218637 No Longer Active Checo Conklin MD Active PYRIDIUM 200 MG ORAL TABLET take 1 tab po TID prn urinary pain. PHENAZOPYRIDINE HCL 81949888044 No Longer Active Checo Joshua Active FLUCONAZOLE 150 MG ORAL TABLET take 1 tab po qday once FLUCONAZOLE 36995960274 No Longer Active Dangelo Rangel MD Acti ve CIPRO 500 MG ORAL TABLET 1 tablet by mouth twice daily CIPROFLOXACIN HCL 68626926452 No Longer Active Dangelo Rangel MD Active PYRIDIUM 200 MG ORAL TABLET take 1 tab po TID prn urinary pain. PYRIDIUM 200 MG ORAL TABLET 9113732 PHENAZOPYRIDINE HCL Inactive PERCOCET 5-325 MG ORAL TABLET 1 tablet by mouth every 6 hour s as needed PERCOCET 5-325 MG ORAL TABLET 8140529 OXYCODONE-ACETAMINOPHEN Inactive ZOFRAN ODT 4 MG ORAL TABLET DISINTEGRATING 1 po q6hr PRN Nausea ZOFRAN ODT 4 MG ORAL TABLET DISINTEGRATING 359252 ONDAN SETRON Inactive FOCALIN XR 15 MG [...] for pain PERCOCET 10-325 MG ORAL TABLET 1416395 OXYCODONE-ACETAMI NOPHEN Inactive FOCALIN XR 10 MG ORAL CAPSULE EXTENDED RELEASE 24 HOUR 1 po q a. m. FOCALIN XR 10 MG ORAL CAPSULE EXTENDED RELEASE 24 HOUR DEXMETHYLPHENIDATE HCL Inactive CEFDINIR 300 MG ORAL CAPSULE 1 po bid CEFDINI R 300 MG ORAL CAPSULE 162192 CEFDINIR Inactive ANTIPYRINE-BENZOCAINE 5.4-1.4 % OTIC SOLUTION 1-2 drops in affec yohannes ear ANTIPYRINE-BENZOCAINE 5.4-1.4 % OTIC SOLUTION BENZOCAINE-ANTIPYRINE Inactive FLONASE 50 MCG/ACT NASAL SUSPENSION 1 spray each nostril am and hs FLONASE 50 MCG/ACT NASAL SUSPENSION 2869476 FLUTICASONE PROPIONATE I nactive PHENERGAN CREAM* 25mg applied to wrist q6hr PRN Nausea PHENERGAN CREAM* Inactive FIORICET 325-50-40 MG TAB 1 tablet by mouth four times daily as needed FIORICET 325-50-40 MG TAB ACETAMINOPHEN-C AFF-BUTALBITAL Inactive TRAZODONE HCL 100 MG ORAL TABLET 0.5 to 1 po qHS PRN Insomnia 20 30/07/08 TRAZODONE HCL 100 MG ORAL TABLET 923744 TRAZODONE HCL Inactive CONCERTA 18 MG ORAL [...] cough HYDROCODONE-ACETAMINOPHEN 5-325 MG ORAL TABLET 8 96362 HYDROCODONE-ACETAMINOPHEN Inactive PHENAZOPYRIDINE HCL 200 MG ORAL TABLET take 1 tab po TID for bladder pain PHENAZOPYRIDINE HCL 200 MG ORAL TABLET 6700691 PHENAZOPYRIDINE HCL Inactive HYDROCODONE-ACETAMINOPHEN 5-325 MG ORAL TABLET 1 po q 6hr PRN Pa in HYDROCODONE-ACETAMINOPHEN 5-325 MG ORAL TABLET 768625 HYDROCODONE-ACETAMINOPHEN Inactive CELEXA 20 MG ORAL TABLET 1 tablet by mouth daily 09/26 CELEXA 20 MG ORAL TABLET 549316 CITALOPRAM HYDROBROMIDE Inactive REGLAN 10 MG ORAL TABLET 1 po TID PRN Nausea 3 REGLAN 10 MG ORAL TABLET 160856 METOCLOPRAMIDE HCL Inactive LAMISIL 250 MG ORAL TABLET 1 po qd L AMISIL 250 MG ORAL TABLET 516708 TERBINAFINE HCL Inactive DICLOFENAC SODIUM 75 MG ORAL TABLET DELAYED RELEASE 1 tablet by mouth twice daily PRN Knee pain DICLOFENAC SODIUM 75 MG ORAL TABLET DELAYED RELEASE 332973 DICLOFENAC SODIUM Inactive METOCLOPRAMIDE HCL 10 MG ORAL TABLET take one PO tid PRN nausea METOCLOPRAMIDE HCL 10 MG ORAL TABLET 459998 METOCLOPRAM ZACH HCL Inactive TERBINAFINE HCL 250 MG ORAL TABLET take one table PO one time da moises TERBINAFINE HCL 250 MG ORAL TABLET 632329 TERBINAFINE H CL Inactive BUPROPION HCL ER [...] SICKNESS 25 M G ORAL TABLET CHEWABLE 440188 MECLIZINE HCL Inactive SUMATRIPTAN SUCCINATE 100 MG ORAL TABLET Take one PRN for migran e SUMATRIPTAN SUCCINATE 100 MG ORAL TABLET 905466 SUMATRIPTAN SUCCINATE Inactive COMPRO 25 MG RECTAL SUPPOSITORY insert or apply one garza ppository rectally as directed every 12 hours as needed for nausea COMPRO 25 MG RECTAL SUPPOSITORY 574952 PROCHLORPERAZINE Inactive ONDANSETRON 8 MG ORAL TABLET DISINTEGRATING place one tablet on tongue and allow to dissolve every 6 hours as needed for vomitting ONDANSETRON 8 MG ORAL TABLET DISINTEGRATING 250309 ONDANSETRON Inactive HYDROCODONE-ACETAMINOPHEN 5-325 MG ORAL TABLET 0.5 to 1 tab by mouth every 6 hours as needed HYDROCODONE-ACETAMIN OPHEN 5-325 MG ORAL TABLET 631160 HYDROCODONE-ACETAMINOPHEN Inactive BACTRIM DS 800-160 MG ORAL TABLET 1 tab by mouth twice daily 201 11/23/03 BACTRIM DS 800-160 MG ORAL TABLET 511991 TRIMETHOPRIM-SULFAMETHOXAZOLE Inactive DIFLUCAN 150 MG ORAL TABLET 1 tablet by mouth if neede d, hold until symptoms start DIFLUCAN 150 MG ORAL TABLET 199897 FLUCONAZ OLE Inactive IBUPROFEN 800 MG ORAL TABLET 1 tab every 8 hours with food 03/20 IBUPROFEN 800 MG ORAL TABLET 689640 IBUPROFEN Krupa ctive HYDROCODONE-ACETAMINOPHEN 5-325 MG ORAL TABLET 1 tab b y mouth every 6 hours as needed HYDROCODONE-ACETAMINOPHEN 5-325 MG ORAL TABLET 070150 HYDROCODONE-ACETAMINOPHEN Inactive BACTROBAN 2 % EXTERNAL CREAM Apply to affected area BID for up to 10 days BACTROBAN 2 % EXTERNAL CREAM 298516 MUPIROCIN CA LCIUM Inactive MAGNESIUM CITRATE 1.745 GM/30ML ORAL SOLUTION 150ml po BID P RN Constipation MAGNESIUM CITRATE 1.745 GM/30ML ORAL SOLUTION 10 47699 MAGNESIUM CITRATE Inactive DIFLUCAN 150 MG ORAL TABLET 1 tablet by mouth qod 2015 DIFLUCAN 150 MG ORAL TABLET 613852 FLUCONAZOLE Inactive BACTRIM DS 800-160 MG ORAL TABLET 1 tab by mouth twice daily 201 12/19/26 BACTRIM DS 800-160 MG ORAL TABLET 478100 TRIMETHOPRIM-SULFAMETHOXAZOLE Inactive CLARITIN 10 MG ORAL TABLET 1 tablet by mouth daily as needed for allergies CLARITIN 10 MG ORAL TABLET 324110 LORATADINE I nactive FLUTICASONE PROPIONATE 50 MCG/ACT NASAL SUSPENSION 2 s prays/nostril qd PRN Congestion/Allergies FLUTICASONE PROPION ATE 50 MCG/ACT NASAL SUSPENSION 4190497 FLUTICASONE PROPIONATE Inactive MIRALAX ORAL POWDER 8.5 to 17g po qd PRN Constipation MIRALAX ORAL POWDER 448148 POLYETHYLENE GLYCOL 3350 Inactive IBUPROFEN 800 MG ORAL TABLET 1 tab every 8 hours as needed for p ain IBUPROFEN 800 MG ORAL TABLET 110655 IBUPROFEN Krupa ctive HYDROCHLOROTHIAZIDE 12.5 MG ORAL CAPSULE 1 po qd PRN Edema 01/10 HYDROCHLOROTHIAZIDE 12.5 MG ORAL CAPSULE 335989 HYDROCH LOROTHIAZIDE Inactive CIPRO 500 MG ORAL TABLET 1 tablet by mouth twice daily CIPRO 500 MG ORAL TABLET 968523 CIPROFLOXACIN HCL Inactive FLUCONAZOLE 150 MG ORAL TABLET take 1 tab po qday once FLUCONAZOLE 150 MG ORAL TABLET 811250 FLUCONAZOLE Inactive ZITHROMAX Z-KARTHIK 250 MG ORAL TABLET 2 today, then 1 daily for 4 d ays ZITHROMAX Z-KARTHIK 250 MG ORAL TABLET 180891 AZITHROMYCIN Inactive PREDNISONE 20 MG ORAL TABLET 2 tabs daily for 3 days, 1 tab daily for 3 days, 1/2 tab daily for 2 days PREDNISONE 20 MG ORAL T ABLET 414609 PREDNISONE Inactive AZITHROMYCIN 250 MG ORAL TABLET 2 po qd x 1 day, then 1 po q d x 4 days AZITHROMYCIN 250 MG ORAL TABLET 513286 AZITHROMY SPARKLE Inactive PREDNISONE 20 MG ORAL TABLET 2 tabs daily for 3 days, 1 tab daily for 3 days, 1/2 tab daily for 2 days PREDNISONE 20 MG ORAL TABLET 586876 PREDNISONE Inactive CEFDINIR 300 MG ORAL CAPSULE by mouth twice a day 2013 CEFDINIR 300 MG ORAL CAPSULE 557058 CEFDINIR Inactive TRIAMCINOLONE ACETONIDE 0.1 % EXTERNAL OINTMENT Apply to affected areas TID for up to 2 weeks TRIAMCINOLONE ACETON ZACH 0.1 % EXTERNAL OINTMENT 8928529 TRIAMCINOLONE ACETONIDE Inactive PREDNISONE 20 MG ORAL TABLET 2 tabs daily for 3 days, 1 tab daily for 3 days, 1/2 tab daily for 2 days PREDNISONE 20 MG ORAL T ABLET 235242 PREDNISONE Inactive BACTRIM DS 800-160 MG ORAL TABLET 1 po BID x 7 days 29/04/10 BACTRIM DS 800-160 MG ORAL TABLET 665882 SULFAMETHOXAZOLE-TRIMETHOP RIM Inactive CIPRO 500 MG ORAL TABLET 1 tablet by mouth twice daily CIPRO 500 MG ORAL TABLET 636686 CIPROFLOXACIN HCL Inactive AZITHROMYCIN 250 MG ORAL TABLET 2 po qd x 1 day, then 1 po q d x 4 days AZITHROMYCIN 250 MG ORAL TABLET 605487 AZITHROMY SPARKLE Inactive FLAGYL 500 MG ORAL TABLET 1 tablet by mouth bid 04/13 FLAGYL 500 MG ORAL TABLET 458028 METRONIDAZOLE Inactive AZITHROMYCIN 250 MG ORAL TABLET 2 po qd x 1 day, then 1 po q d x 4 days AZITHROMYCIN 250 MG ORAL TABLET 270242 AZITHROMY SPARKLE Inactive AMOXICILLIN 500 MG ORAL CAPSULE 2 po BID x 10 days 201 01/15/27 AMOXICILLIN 500 MG ORAL CAPSULE 331055 AMOXICILLIN Inactive AMOXICILLIN 500 MG ORAL CAPSULE 2 po BID x 14 days for H. Pylori AMOXICILLIN 500 MG ORAL CAPSULE 536351 AMOXICILLIN Inactive CLARITHROMYCIN 500 MG ORAL TABLET 1 tab po BID x 14 days CLARITHROMYCIN 500 MG ORAL TABLET 597452 CLARITHROMYCIN Inacti ve FLAGYL 500 MG ORAL TABLET 1 tablet by mouth bid 08/29 FLAGYL 500 MG ORAL TABLET 549265 METRONIDAZOLE Inactive PROTONIX 40 MG ORAL TABLET DELAYED RELEASE 1 pill by m kayceeh daily, for acid reflux PROTONIX 40 MG ORAL TABLET DELAYED RELEAS E 664894 PANTOPRAZOLE SODIUM Inactive Immunizations Vaccine Administration Date [...] ... - Chemistry sodium, serum 138 mmol/L 834-332 2054/06/27 carbon dioxide, venous blood 30.3 mmol/L 21.0-32 [...] ... - Chemistry sodium, serum 139 mmol/L 720-197 0305/11/28 carbon dioxide, venous blood 26.0 mmol/L 21.0-32 [...] 5.0-8.5 Encounters Code Encounter Date Provider Facility CPT-01093 Level 3 Est. Patient 16:46:51 CDT Thomas reynolds DO [facility] CPT-27770 [id number] Vst-Est Level III 14:40:49 CDT Paul Hamlin MD [facility] CPT-57082 Level 4 Est. Patient 11:08:43 CDT Checo Conklin MD [facility]-00630 [id number] Vst-Est Level III 09:37:41 CDT Dangelo Rangel MD [facility] CPT-27682 Level 4 Est. Patient 08:57:51 COLLEGE ARCHIVIST Checo Conklin MD [facility] CPT-24792 Level 3 Est. Patient 11:24:55 COLLEGE ARCHIVIST Efren almendarez [facility] CPT-35879 Level 3 Est. Patient 13:05:44 CDT Paul Hamlin MD [facility] CPT-17691 Level 3 Est. Patient 11:29:55 CDT Checo Conklin MD [facility] CPT-82857 Level 4 Est. Patient 11:08:12 COLLEGE ARCHIVIST Checo Conklin MD [facility] CPT-00701 Level 4 Est. Patient 16:06:48 COLLEGE ARCHIVIST Checo Conklin MD [facility] CPT-53042 Level 3 Est. Patient 09:11:49 CDT Efren almendarez [facility]-94296 Level 2 Est. Patient 19:53:27 CDT Tanner hill MD [facility] CPT-62643 Level 3 Est. Patient 09:15:34 CDT Efren almendarez [facility]-84080 Level 3 Est. Patient 11:28:51 COLLEGE ARCHIVIST Efren almendarez APRN [facility] CPT-91280 Level 4 Est. Patient 13:55:46 COLLEGE ARCHIVIST Checo Conklin MD [facility] CPT-08985 Level 4 Est. Patient 17:10:53 CDT Checo Conklin MD [facility] CPT-36800 Level 3 Est. Patient 15:56:22 CDT Checo Conklin MD [facility] CPT-03262 Level 3 Est. Patient 15:29:07 CDT Checo Conklin MD [facility] CPT-39976 Level 3 Est. Patient 14:38:41 CDT Checo Conklin MD [facility] CPT-56248 Level 3 Est. Patient 15:22:03 COLLEGE ARCHIVIST Thomas reynolds DO [facility] CPT-41783 Level 3 Est. Patient 13:34:17 COLLEGE ARCHIVIST Checo Conklin MD [facility] CPT-31763 Level 3 Est. Patient 12:29:32 CDT Dangelo arroyo MD [facility] CPT-14271 Level 3 Est. Patient 16:53:02 CDT Checo Conklin MD [facility] CPT-00630 Level 3 Est. Patient 16:37:13 CDT Checo Conklin MD [facility] CPT-59470 Level 3 Est. Patient 16:16:59 CDT Paul Hamlin MD [facility] CPT-52252 Level 3 Est. Patient 14:20:13 CDT Dangelo arroyo MD [facility] CPT-73069 Level 4 Est. Patient 11:29:33 CDT Checo Conklin MD [facility] CPT-50936 Level 3 Est. Patient 17:08:31 CDT Checo Conklin MD [facility] CPT-06736 Level 3 Est. Patient 16:50:42 COLLEGE ARCHIVIST Checo Conklin MD [facility] CPT-22368 Level 4 Est. Patient 09:26:08 COLLEGE ARCHIVIST Checo Conklin MD [facility] CPT-38827 Level 3 Est. Patient 11:37:10 CDT Checo Conklin MD [facility] CPT-23229 Level 4 Est. Patient 14:07:38 CDT Checo Conklin MD [facility] CPT-63156 Level 3 Est. Patient 09:54:41 CDT Checo Conklin MD [facility] CPT-27105 Level 3 Est. Patient 11:10:54 CDT Paul Hamlin MD [facility] CPT-48097 Level 3 Est. Patient 14:16:56 COLLEGE ARCHIVIST Checo Conklin MD [facility] CPT-80195 Level 3 Est. Patient 11:04:11 COLLEGE ARCHIVIST Checo Conklin MD [facility] CPT-67157 Level 3 Est. Patient 17:09:26 CDT Dangelo arroyo MD [facility] CPT-45223 Level 3 Est. Patient 16:54:37 CDT Checo Conklin MD [facility] Procedures Code Procedure Name Date Entry Date Standard Desc ription CPT-39236 Abx/Therapy Injection 09:52:15 CDT CPT-81730 Abx/Therapy Injection 18:17:48 CDT CPT-J2550 Phenergan 25 mg (Promethazine) 16:48:23 CDT CPT-J1885 Toradol 60 mg 16:48:23 CDT CPT-69232 Wrist, right, comp 3V - XRAY USE ONLY 09:24:31 CDT CPT-26845 Abd compl w upright - XRAY USE ONLY 1 1:36:54 COLLEGE ARCHIVIST CPT-31028 UA w micro - LAB USE ONLY 17:06:46 CDT 2015 CPT-05841 [facility] Qual - LAB USE ONLY 17:06:46 CDT 05/06 CPT-59405 CMP - LAB USE ONLY 17:06:46 CDT CPT-87882 CBC with Diff - LAB USE ONLY 17:06:45 CDT 2 CPT-87474 Venipuncture Draw Fee 17:06:45 CDT CPT-LR Lesion Removal 19:53:27 CDT CPT-OV Office Visit 11:31:28 CDT CPT-54194 Tubersol 09:39:29 CDT CPT-J2550 Phenergan 25 mg (Promethazine) 13:59:02 COLLEGE ARCHIVIST CPT-J1885 Toradol 60 mg (Ketorolac) 13:59:02 COLLEGE ARCHIVIST 2012
--- OUTSIDE RECORDS SUMMARY | 2019-09-29 01:16 | XMS REPORT | Clinical Summary ---
Author Author Admin, Bethany Gonzales Organization [facility] Address Unknown Phone Unavailable Allergies, Adverse Reactions, [...] RELEASE 1 daily with furosemide POTASSIUM CHLORIDE 43139347116 Active Paul Hamlin MD Active FUROSEMIDE 20 MG ORAL TABLET 1 daily for swelling FUROSEMIDE 95009098212 Active Paul Hamlin MD Active HYDROCHLOROTHIAZIDE 12.5 MG ORAL CAPSULE 1 po qd PRN Edema 01/10 HYDROCHLOROTHIAZIDE 77073131546 No Longer Active Paul Hamlin MD Active IBUPROFEN 800 MG ORAL TABLET 1 tab every 8 hours as needed for p ain IBUPROFEN 61194145386 No Longer Active Paul Hamlin MD Active PAROXETINE HCL 40 MG ORAL TABLET 1 po qd PAR OXETINE HCL 78197570514 Active Checo Conklin MD Active MIRALAX ORAL POWDER 8.5 to 17g po qd PRN Constipation POLYETHYLENE GLYCOL 3350 72188525546 No Longer Active Checo Conklin MD Active PROTONIX 40 MG ORAL TABLET DELAYED RELEASE 1 pill by m outh daily, for acid reflux PANTOPRAZOLE SODIUM 76170513789 No Longer Activ e Corry Méndez LPN Active FLAGYL 500 MG ORAL TABLET 1 tablet by mouth bid 08/29 METRONIDAZOLE 42328142094 No Longer Active Corry Méndez LPN Active CLARITHROMYCIN 500 MG ORAL TABLET 1 tab po BID x 14 days CLARITHROMYCIN 44405421553 No Longer Active Corry Méndez LPN Active AMOXICILLIN 500 MG ORAL CAPSULE 2 po BID x 14 days for H. Pylori AMOXICILLIN 36480562777 No Longer Active Corry Méndez LPN Active FLUTICASONE PROPIONATE 50 MCG/ACT NASAL SUSPENSION 2 s prays/nostril qd PRN Congestion/Allergies FLUTICASONE PROPIONATE 4343802885 9 No Longer Active Checo Conklin MD Active AMOXICILLIN 500 MG ORAL CAPSULE 2 po BID x 10 days 201 01/15/27 AMOXICILLIN 73216440824 No Longer Active Checo Conklin MD Activ e CLARITIN 10 MG ORAL TABLET 1 tablet by mouth daily as needed for allergies LORATADINE 55397671550 No Longer Active Checo Ortiz MD Active BACTRIM DS 800-160 MG ORAL TABLET 1 tab by mouth twice daily 201 12/19/26 TRIMETHOPRIM-SULFAMETHOXAZOLE 72592619350 No Longer Active Ragini Carrillo MD Active DIFLUCAN 150 MG ORAL TABLET 1 tablet by mouth qod 2015 FLUCONAZOLE 73242792335 No Longer Active Efren Medel SYSTEMS TESTER Act mike AZITHROMYCIN 250 MG ORAL TABLET 2 po qd x 1 day, then 1 po q d x 4 days AZITHROMYCIN 41443745291 No Longer Active Efren flores SYSTEMS TESTER Active FLAGYL 500 MG ORAL TABLET 1 tablet by mouth bid 04/13 METRONIDAZOLE 05817044180 No Longer Active Checo Conklin MD Acti ve FOCALIN XR 10 MG ORAL CAPSULE EXTENDED RELEASE 24 HOUR 1 po q a.m. DEXMETHYLPHENIDATE HCL 91981657628 Active Checo Conklin MD Active MAGNESIUM CITRATE 1.745 GM/30ML ORAL SOLUTION 150ml po BID P RN Constipation MAGNESIUM CITRATE 64196557121 No Longer Active Checo Conklin MD Active BACTROBAN 2 % EXTERNAL CREAM Apply to affected area BID for up to 10 days MUPIROCIN CALCIUM 45171685820 No Longer Active Checo Conklin MD Active HYDROCODONE-ACETAMINOPHEN 5-325 MG ORAL TABLET 1 tab b y mouth every 6 hours as needed HYDROCODONE-ACETAMINOPHEN 80186180981 No Longer Active Checo Conklin MD Active IBUPROFEN 800 MG ORAL TABLET 1 tab every 8 hours with food 03/20 IBUPROFEN 69325703046 No Longer Active Checo Conklin MD Active DIFLUCAN 150 MG ORAL TABLET 1 tablet by mouth if neede d, hold until symptoms start FLUCONAZOLE 51272245909 No Longer Active Checo Conklin MD Active BACTRIM DS 800-160 MG ORAL TABLET 1 tab by mouth twice daily 201 11/23/03 TRIMETHOPRIM-SULFAMETHOXAZOLE 19271317805 No Longer Active K bernice Méndez LPN Active HYDROCODONE-ACETAMINOPHEN 5-325 MG ORAL TABLET 0.5 to 1 tab by mouth every 6 hours as needed HYDROCODONE-ACETAMINOPHEN 79907494041 No Longer Active Checo Conklin MD Active ONDANSETRON 8 MG ORAL TABLET DISINTEGRATING place one tablet on tongue and allow to dissolve every 6 hours as needed for vomitting ONDANSETRON 94144263588 No Longer Active Checo Conklin MD Activ e COMPRO 25 MG RECTAL SUPPOSITORY insert or apply one garza ppository rectally as directed every 12 hours as needed for nausea PROCHLORPERAZINE 81364132640 No Longer Active Checo Conklin MD A ctive SUMATRIPTAN SUCCINATE 100 MG ORAL TABLET Take one PRN for migran e SUMATRIPTAN SUCCINATE 13339924067 No Longer Active Checo Conklin MD Active TRAVEL SICKNESS 25 MG ORAL TABLET CHEWABLE chew and sw allow one tablet every 6 hours as needed MECLIZINE HCL 80472380370 No Longer A ctive Checo Conklin MD Active BUPROPION HCL ER (SR) 100 MG ORAL TABLET EXTENDED RELE ASE 12 HOUR take one tablet by mouth one time daily for one week then take 1 two times daily BUPROPION HCL 61368301912 No Longer Active Checo gallagher MD Active TERBINAFINE HCL 250 MG ORAL TABLET take one table PO one time da moises TERBINAFINE HCL 62524702751 No Longer Active Checo Conklin MD Active METOCLOPRAMIDE HCL 10 MG ORAL TABLET take one PO tid PRN nausea METOCLOPRAMIDE HCL 13460564915 No Longer Active Checo Conklin MD Active DICLOFENAC SODIUM 75 MG ORAL TABLET DELAYED RELEASE 1 tablet by mouth twice daily PRN Knee pain DICLOFENAC SODIUM 99230012253 No Longer Active Checo Conklin MD Active LAMISIL 250 MG ORAL TABLET 1 po qd TERBINAFI NE HCL 23024901223 No Longer Active Checo Conklin MD Active REGLAN 10 MG ORAL TABLET 1 po TID PRN Nausea 3 METOCLOPRAMIDE HCL 07853931375 No Longer Active Checo Conklin MD Active CELEXA 20 MG ORAL TABLET 1 tablet by mouth daily 09/26 CITALOPRAM HYDROBROMIDE 93793803714 No Longer Active Checo Conklin MD Active AZITHROMYCIN 250 MG ORAL TABLET 2 po qd x 1 day, then 1 po q d x 4 days AZITHROMYCIN 23397716490 No Longer Active Checo Ortiz MD Active HYDROCODONE-ACETAMINOPHEN 5-325 MG ORAL TABLET 1 po q 6hr PRN Pa in HYDROCODONE-ACETAMINOPHEN 14251504706 No Longer Active Lenora Conklin MD Active PHENAZOPYRIDINE HCL 200 MG ORAL TABLET take 1 tab po TID for bladder pain PHENAZOPYRIDINE HCL 17573521429 No Longer Active Joe Conklin MD Active CIPRO 500 MG ORAL TABLET 1 tablet by mouth twice daily CIPROFLOXACIN HCL 13254481921 No Longer Active Dangelo Rangel MD Active HYDROCODONE-ACETAMINOPHEN 5-325 MG ORAL TABLET 1/2 to 1 po q 4 hours prn cough HYDROCODONE-ACETAMINOPHEN 68176075667 No Longer Activ candy Rangel MD Active BACTRIM DS 800-160 MG ORAL TABLET 1 po BID x 7 days 29/04/10 SULFAMETHOXAZOLE-TRIMETHOPRIM 80556511370 No Longer Active Checo Conklin MD Active PREDNISONE 20 MG ORAL TABLET 2 tabs daily for 3 days, 1 tab daily for 3 days, 1/2 tab daily for 2 days PREDNISONE 67544462693 No Longer Active Checo Conklin MD Active TRIAMCINOLONE ACETONIDE 0.1 % EXTERNAL OINTMENT Apply to affected areas TID for up to 2 weeks TRIAMCINOLONE ACETONIDE 34946913063 No Longer Active Checo Conklin MD Active CEFDINIR 300 MG ORAL CAPSULE by mouth twice a day 2013 CEFDINIR 30053442270 No Longer Active Dangelo Rangel MD Acti ve BUPROPION HCL ER (SMOKING DET) 150 MG ORAL TABLET EXTE NDED RELEASE 12 HOUR 1 a day for 1 week then 1 twice a day BUPROPION HCL (SMOKING DETER) 00275663258 No Longer Active Checo Conklin MD Active SIMVASTATIN 20 MG ORAL TABLET 1 po qd SIMVASTAT IN 59680104334 Active Checo Conklin MD Active CHANTIX STARTING MONTH KARTHIK 0.5 MG X 11 & 1 MG X 42 ORA L TABLET 0.5mg daily for 3 days, then 0.5mg BID for 4 days, then 1mg BID VARENICLINE TARTRATE 89455634192 No Longer Active Checo Conklin MD Activ e XANAX 0.5 MG ORAL TABLET 1 po BID PRN anxiety A LPRAZOLAM 45616670849 Active Checo Conklin MD Active CONCERTA 18 MG ORAL TABLET EXTENDED RELEASE 1 po q a.m. METHYLPHENIDATE HCL 00844087849 No Longer Active Checo Conklin MD Active AMBIEN 5 MG ORAL TABLET 1 po qHS PRN Insomnia Z OLPIDEM TARTRATE 77326603314 Active Checo Conklin MD Active TRAZODONE HCL 100 MG ORAL TABLET 0.5 to 1 po qHS PRN Insomnia 20 30/07/08 TRAZODONE HCL 44154989829 No Longer Active Checo Conklin MD Active FIORICET 325-50-40 MG TAB 1 tablet by mouth four times daily as needed [id number] 17529563147 No Longer Active Checo Conklin MD Active PHENERGAN CREAM* 25mg applied to wrist q6hr PRN Nausea PHENERGAN CREAM* No Longer Active Checo Conklin MD A ctive FLONASE 50 MCG/ACT NASAL SUSPENSION 1 spray each nostril am and hs FLUTICASONE PROPIONATE 23635028539 No Longer Active Checo Conklin MD Active ANTIPYRINE-BENZOCAINE 5.4-1.4 % OTIC SOLUTION 1-2 drops in affec yohannes ear BENZOCAINE-ANTIPYRINE 78394603499 No Longer Active Checo Conklin MD Active CEFDINIR 300 MG ORAL CAPSULE 1 po bid CEFDINIR 66126626903 No Longer Active Checo Conklin MD Active PREDNISONE 20 MG ORAL TABLET 2 tabs daily for 3 days, 1 tab daily for 3 days, 1/2 tab daily for 2 days PREDNISONE 35756375369 No Longer Active Checo Conklin MD Active AZITHROMYCIN 250 MG ORAL TABLET 2 po qd x 1 day, then 1 po q d x 4 days AZITHROMYCIN 17275391531 No Longer Active Checo Ortiz MD Active PREDNISONE 20 MG ORAL TABLET 2 tabs daily for 3 days, 1 tab daily for 3 days, 1/2 tab daily for 2 days PREDNISONE 16548495532 No Longer Active Checo Conklin MD Active ZITHROMAX Z-KARTHIK 250 MG ORAL TABLET 2 today, then 1 daily for 4 d ays AZITHROMYCIN 39880515639 No Longer Active Paul Hamlin MD Active FOCALIN XR 10 MG ORAL CAPSULE EXTENDED RELEASE 24 HOUR 1 po q a. m. DEXMETHYLPHENIDATE HCL 63819217327 No Longer Active Paul Hamlin MD Active PERCOCET 10-325 MG ORAL TABLET 1 tablet every 6 hours as needed for pain OXYCODONE-ACETAMINOPHEN 60857458422 No Longer Active Paul Hamlin MD Active LORTAB 5-500 MG ORAL TABLET 1/2 to 1 tablet by mouth e very 4 hours as needed for pain HYDROCODONE-ACETAMINOPHEN 60109246486 No Longer Active Checo Conklin MD Active FOCALIN XR 15 MG ORAL CAPSULE EXTENDED RELEASE 24 HOUR 1 po q a. m. DEXMETHYLPHENIDATE HCL 08206363054 No Longer Active Checo Conklin MD Active ZOFRAN ODT 4 MG ORAL TABLET DISINTEGRATING 1 po q6hr PRN Nausea ONDANSETRON 13652864246 No Longer Active Checo Conklin MD Active PERCOCET 5-325 MG ORAL TABLET 1 tablet by mouth every 6 hour s as needed OXYCODONE-ACETAMINOPHEN 87902669997 No Longer Active Checo Conklin MD Active PYRIDIUM 200 MG ORAL TABLET take 1 tab po TID prn urinary pain. PHENAZOPYRIDINE HCL 01432312723 No Longer Active Checo Joshua Active FLUCONAZOLE 150 MG ORAL TABLET take 1 tab po qday once FLUCONAZOLE 46864161616 No Longer Active Dangelo Rangel MD Acti ve CIPRO 500 MG ORAL TABLET 1 tablet by mouth twice daily CIPROFLOXACIN HCL 17582619598 No Longer Active Dangelo Rangel MD Active PYRIDIUM 200 MG ORAL TABLET take 1 tab po TID prn urinary pain. PYRIDIUM 200 MG ORAL TABLET 8035318 PHENAZOPYRIDINE HCL Inactive PERCOCET 5-325 MG ORAL TABLET 1 tablet by mouth every 6 hour s as needed PERCOCET 5-325 MG ORAL TABLET 7122566 OXYCODONE-ACETAMINOPHEN Inactive ZOFRAN ODT 4 MG ORAL TABLET DISINTEGRATING 1 po q6hr PRN Nausea ZOFRAN ODT 4 MG ORAL TABLET DISINTEGRATING 257716 ONDAN SETRON Inactive FOCALIN XR 15 MG [...] for pain PERCOCET 10-325 MG ORAL TABLET 5497428 OXYCODONE-ACETAMI NOPHEN Inactive FOCALIN XR 10 MG ORAL CAPSULE EXTENDED RELEASE 24 HOUR 1 po q a. m. FOCALIN XR 10 MG ORAL CAPSULE EXTENDED RELEASE 24 HOUR DEXMETHYLPHENIDATE HCL Inactive CEFDINIR 300 MG ORAL CAPSULE 1 po bid CEFDINI R 300 MG ORAL CAPSULE 255224 CEFDINIR Inactive ANTIPYRINE-BENZOCAINE 5.4-1.4 % OTIC SOLUTION 1-2 drops in affec yohannes ear ANTIPYRINE-BENZOCAINE 5.4-1.4 % OTIC SOLUTION BENZOCAINE-ANTIPYRINE Inactive FLONASE 50 MCG/ACT NASAL SUSPENSION 1 spray each nostril am and hs FLONASE 50 MCG/ACT NASAL SUSPENSION 0649130 FLUTICASONE PROPIONATE I nactive PHENERGAN CREAM* 25mg applied to wrist q6hr PRN Nausea PHENERGAN CREAM* Inactive FIORICET 325-50-40 MG TAB 1 tablet by mouth four times daily as needed FIORICET 325-50-40 MG TAB ACETAMINOPHEN-C AFF-BUTALBITAL Inactive TRAZODONE HCL 100 MG ORAL TABLET 0.5 to 1 po qHS PRN Insomnia 20 30/07/08 TRAZODONE HCL 100 MG ORAL TABLET 241221 TRAZODONE HCL Inactive CONCERTA 18 MG ORAL [...] cough HYDROCODONE-ACETAMINOPHEN 5-325 MG ORAL TABLET 8 59990 HYDROCODONE-ACETAMINOPHEN Inactive PHENAZOPYRIDINE HCL 200 MG ORAL TABLET take 1 tab po TID for bladder pain PHENAZOPYRIDINE HCL 200 MG ORAL TABLET 4679619 PHENAZOPYRIDINE HCL Inactive HYDROCODONE-ACETAMINOPHEN 5-325 MG ORAL TABLET 1 po q 6hr PRN Pa in HYDROCODONE-ACETAMINOPHEN 5-325 MG ORAL TABLET 776383 HYDROCODONE-ACETAMINOPHEN Inactive CELEXA 20 MG ORAL TABLET 1 tablet by mouth daily 09/26 CELEXA 20 MG ORAL TABLET 970454 CITALOPRAM HYDROBROMIDE Inactive REGLAN 10 MG ORAL TABLET 1 po TID PRN Nausea 3 REGLAN 10 MG ORAL TABLET 786505 METOCLOPRAMIDE HCL Inactive LAMISIL 250 MG ORAL TABLET 1 po qd L AMISIL 250 MG ORAL TABLET 251252 TERBINAFINE HCL Inactive DICLOFENAC SODIUM 75 MG ORAL TABLET DELAYED RELEASE 1 tablet by mouth twice daily PRN Knee pain DICLOFENAC SODIUM 75 MG ORAL TABLET DELAYED RELEASE 576155 DICLOFENAC SODIUM Inactive METOCLOPRAMIDE HCL 10 MG ORAL TABLET take one PO tid PRN nausea METOCLOPRAMIDE HCL 10 MG ORAL TABLET 915583 METOCLOPRAM ZACH HCL Inactive TERBINAFINE HCL 250 MG ORAL TABLET take one table PO one time da moises TERBINAFINE HCL 250 MG ORAL TABLET 447943 TERBINAFINE H CL Inactive BUPROPION HCL ER [...] SICKNESS 25 M G ORAL TABLET CHEWABLE 331408 MECLIZINE HCL Inactive SUMATRIPTAN SUCCINATE 100 MG ORAL TABLET Take one PRN for migran e SUMATRIPTAN SUCCINATE 100 MG ORAL TABLET 717123 SUMATRIPTAN SUCCINATE Inactive COMPRO 25 MG RECTAL SUPPOSITORY insert or apply one garza ppository rectally as directed every 12 hours as needed for nausea COMPRO 25 MG RECTAL SUPPOSITORY 276442 PROCHLORPERAZINE Inactive ONDANSETRON 8 MG ORAL TABLET DISINTEGRATING place one tablet on tongue and allow to dissolve every 6 hours as needed for vomitting ONDANSETRON 8 MG ORAL TABLET DISINTEGRATING 319120 ONDANSETRON Inactive HYDROCODONE-ACETAMINOPHEN 5-325 MG ORAL TABLET 0.5 to 1 tab by mouth every 6 hours as needed HYDROCODONE-ACETAMIN OPHEN 5-325 MG ORAL TABLET 701633 HYDROCODONE-ACETAMINOPHEN Inactive BACTRIM DS 800-160 MG ORAL TABLET 1 tab by mouth twice daily 201 11/23/03 BACTRIM DS 800-160 MG ORAL TABLET 574875 TRIMETHOPRIM-SULFAMETHOXAZOLE Inactive DIFLUCAN 150 MG ORAL TABLET 1 tablet by mouth if neede d, hold until symptoms start DIFLUCAN 150 MG ORAL TABLET 177402 FLUCONAZ OLE Inactive IBUPROFEN 800 MG ORAL TABLET 1 tab every 8 hours with food 03/20 IBUPROFEN 800 MG ORAL TABLET 719108 IBUPROFEN Krupa ctive HYDROCODONE-ACETAMINOPHEN 5-325 MG ORAL TABLET 1 tab b y mouth every 6 hours as needed HYDROCODONE-ACETAMINOPHEN 5-325 MG ORAL TABLET 076349 HYDROCODONE-ACETAMINOPHEN Inactive BACTROBAN 2 % EXTERNAL CREAM Apply to affected area BID for up to 10 days BACTROBAN 2 % EXTERNAL CREAM 009901 MUPIROCIN CA LCIUM Inactive MAGNESIUM CITRATE 1.745 GM/30ML ORAL SOLUTION 150ml po BID P RN Constipation MAGNESIUM CITRATE 1.745 GM/30ML ORAL SOLUTION 10 07520 MAGNESIUM CITRATE Inactive DIFLUCAN 150 MG ORAL TABLET 1 tablet by mouth qod 2015 DIFLUCAN 150 MG ORAL TABLET 279582 FLUCONAZOLE Inactive BACTRIM DS 800-160 MG ORAL TABLET 1 tab by mouth twice daily 201 12/19/26 BACTRIM DS 800-160 MG ORAL TABLET 787670 TRIMETHOPRIM-SULFAMETHOXAZOLE Inactive CLARITIN 10 MG ORAL TABLET 1 tablet by mouth daily as needed for allergies CLARITIN 10 MG ORAL TABLET 361019 LORATADINE I nactive FLUTICASONE PROPIONATE 50 MCG/ACT NASAL SUSPENSION 2 s prays/nostril qd PRN Congestion/Allergies FLUTICASONE PROPION ATE 50 MCG/ACT NASAL SUSPENSION 5982620 FLUTICASONE PROPIONATE Inactive MIRALAX ORAL POWDER 8.5 to 17g po qd PRN Constipation MIRALAX ORAL POWDER 608989 POLYETHYLENE GLYCOL 3350 Inactive IBUPROFEN 800 MG ORAL TABLET 1 tab every 8 hours as needed for p ain IBUPROFEN 800 MG ORAL TABLET 917936 IBUPROFEN Krupa ctive HYDROCHLOROTHIAZIDE 12.5 MG ORAL CAPSULE 1 po qd PRN Edema 01/10 HYDROCHLOROTHIAZIDE 12.5 MG ORAL CAPSULE 539488 HYDROCH LOROTHIAZIDE Inactive CIPRO 500 MG ORAL TABLET 1 tablet by mouth twice daily CIPRO 500 MG ORAL TABLET 038849 CIPROFLOXACIN HCL Inactive FLUCONAZOLE 150 MG ORAL TABLET take 1 tab po qday once FLUCONAZOLE 150 MG ORAL TABLET 874136 FLUCONAZOLE Inactive ZITHROMAX Z-KARTHIK 250 MG ORAL TABLET 2 today, then 1 daily for 4 d ays ZITHROMAX Z-KARTHIK 250 MG ORAL TABLET 287242 AZITHROMYCIN Inactive PREDNISONE 20 MG ORAL TABLET 2 tabs daily for 3 days, 1 tab daily for 3 days, 1/2 tab daily for 2 days PREDNISONE 20 MG ORAL T ABLET 612673 PREDNISONE Inactive AZITHROMYCIN 250 MG ORAL TABLET 2 po qd x 1 day, then 1 po q d x 4 days AZITHROMYCIN 250 MG ORAL TABLET 827289 AZITHROMY PSARKLE Inactive PREDNISONE 20 MG ORAL TABLET 2 tabs daily for 3 days, 1 tab daily for 3 days, 1/2 tab daily for 2 days PREDNISONE 20 MG ORAL TABLET 443292 PREDNISONE Inactive CEFDINIR 300 MG ORAL CAPSULE by mouth twice a day 2013 CEFDINIR 300 MG ORAL CAPSULE 855417 CEFDINIR Inactive TRIAMCINOLONE ACETONIDE 0.1 % EXTERNAL OINTMENT Apply to affected areas TID for up to 2 weeks TRIAMCINOLONE ACETON ZACH 0.1 % EXTERNAL OINTMENT 4068511 TRIAMCINOLONE ACETONIDE Inactive PREDNISONE 20 MG ORAL TABLET 2 tabs daily for 3 days, 1 tab daily for 3 days, 1/2 tab daily for 2 days PREDNISONE 20 MG ORAL T ABLET 792691 PREDNISONE Inactive BACTRIM DS 800-160 MG ORAL TABLET 1 po BID x 7 days 29/04/10 BACTRIM DS 800-160 MG ORAL TABLET 973143 SULFAMETHOXAZOLE-TRIMETHOP RIM Inactive CIPRO 500 MG ORAL TABLET 1 tablet by mouth twice daily CIPRO 500 MG ORAL TABLET 469556 CIPROFLOXACIN HCL Inactive AZITHROMYCIN 250 MG ORAL TABLET 2 po qd x 1 day, then 1 po q d x 4 days AZITHROMYCIN 250 MG ORAL TABLET 585458 AZITHROMY SPARKLE Inactive FLAGYL 500 MG ORAL TABLET 1 tablet by mouth bid 04/13 FLAGYL 500 MG ORAL TABLET 922139 METRONIDAZOLE Inactive AZITHROMYCIN 250 MG ORAL TABLET 2 po qd x 1 day, then 1 po q d x 4 days AZITHROMYCIN 250 MG ORAL TABLET 666366 AZITHROMY SPARKLE Inactive AMOXICILLIN 500 MG ORAL CAPSULE 2 po BID x 10 days 201 01/15/27 AMOXICILLIN 500 MG ORAL CAPSULE 424535 AMOXICILLIN Inactive AMOXICILLIN 500 MG ORAL CAPSULE 2 po BID x 14 days for H. Pylori AMOXICILLIN 500 MG ORAL CAPSULE 791492 AMOXICILLIN Inactive CLARITHROMYCIN 500 MG ORAL TABLET 1 tab po BID x 14 days CLARITHROMYCIN 500 MG ORAL TABLET 890570 CLARITHROMYCIN Inacti ve FLAGYL 500 MG ORAL TABLET 1 tablet by mouth bid 08/29 FLAGYL 500 MG ORAL TABLET 794933 METRONIDAZOLE Inactive PROTONIX 40 MG ORAL TABLET DELAYED RELEASE 1 pill by m kayceeh daily, for acid reflux PROTONIX 40 MG ORAL TABLET DELAYED RELEAS E 635016 PANTOPRAZOLE SODIUM Inactive Immunizations Vaccine Administration Date [...] ... - Chemistry sodium, serum 138 mmol/L 781-365 4687/06/27 carbon dioxide, venous blood 30.3 mmol/L 21.0-32 [...] ... - Chemistry sodium, serum 139 mmol/L 008-299 9015/11/28 carbon dioxide, venous blood 26.0 mmol/L 21.0-32 [...] 5.0-8.5 Encounters Code Encounter Date Provider Facility CPT-21136 Level 3 Est. Patient 16:46:51 CDT Thomas reynolds DO [facility] CPT-10722 [id number] Vst-Est Level III 14:40:49 CDT Paul Hamlin MD [facility] CPT-52000 Level 4 Est. Patient 11:08:43 CDT Checo Conklin MD -[id number] Vst-Est Level III 09:37:41 CDT Dangelo Rangel MD [facility] CPT-44281 Level 4 Est. Patient 08:57:51 POWER EQUIP[employer] MECH[employer]ICS INSTRUCTOR Checo Conklin MD [facility] CPT-44902 Level 3 Est. Patient 11:24:55 POWER EQUIPMENT MECHANICS INSTRUCTOR Efren almendarez [facility] CPT-34308 Level 3 Est. Patient 13:05:44 CDT Paul Hamlin MD [facility] CPT-82139 Level 3 Est. Patient 11:29:55 CDT Checo Conklin MD [facility] CPT-84618 Level 4 Est. Patient 11:08:12 POWER EQUIPMENT MECHANICS INSTRUCTOR Checo Conklin MD [facility] CPT-20037 Level 4 Est. Patient 16:06:48 POWER EQUIPMENT MECHANICS INSTRUCTOR Checo Conklin MD [facility] CPT-82820 Level 3 Est. Patient 09:11:49 CDT Efren almendarez [facility]-14206 Level 2 Est. Patient 19:53:27 CDT Tanner hill MD [facility] CPT-55894 Level 3 Est. Patient 09:15:34 CDT Efren almendarez [facility]-72178 Level 3 Est. Patient 11:28:51 POWER EQUIPMENT MECHANICS INSTRUCTOR Efren almendarez APRN [facility] CPT-31019 Level 4 Est. Patient 13:55:46 POWER EQUIPMENT MECHANICS INSTRUCTOR Checo Conklin MD [facility] CPT-06268 Level 4 Est. Patient 17:10:53 CDT Checo Conklin MD [facility] CPT-74764 Level 3 Est. Patient 15:56:22 CDT Checo Conklin MD [facility] CPT-22947 Level 3 Est. Patient 15:29:07 CDT Checo Conklin MD [facility] CPT-13198 Level 3 Est. Patient 14:38:41 CDT Checo Conklin MD [facility] CPT-86204 Level 3 Est. Patient 15:22:03 POWER EQUIPMENT MECHANICS INSTRUCTOR Thomas reynolds DO [facility] CPT-66851 Level 3 Est. Patient 13:34:17 POWER EQUIPMENT MECHANICS INSTRUCTOR Checo Conklin MD [facility] CPT-68189 Level 3 Est. Patient 12:29:32 CDT Dangelo arroyo MD [facility] CPT-11737 Level 3 Est. Patient 16:53:02 CDT Checo Conklin MD [facility] CPT-51176 Level 3 Est. Patient 16:37:13 CDT Checo Conklin MD [facility] CPT-55560 Level 3 Est. Patient 16:16:59 CDT Paul Hamlin MD [facility] CPT-96673 Level 3 Est. Patient 14:20:13 CDT Dangelo arroyo MD [facility] CPT-73913 Level 4 Est. Patient 11:29:33 CDT Checo Conklin MD [facility] CPT-49973 Level 3 Est. Patient 17:08:31 CDT Checo Conklin MD [facility] CPT-16273 Level 3 Est. Patient 16:50:42 POWER EQUIPMENT MECHANICS INSTRUCTOR Checo Conklin MD [facility] CPT-34456 Level 4 Est. Patient 09:26:08 POWER EQUIPMENT MECHANICS INSTRUCTOR Checo Conklin MD [facility] CPT-60796 Level 3 Est. Patient 11:37:10 CDT Checo Conklin MD [facility] CPT-89001 Level 4 Est. Patient 14:07:38 CDT Checo Conklin MD [facility] CPT-59475 Level 3 Est. Patient 09:54:41 CDT Checo Conklin MD [facility] CPT-17586 Level 3 Est. Patient 11:10:54 CDT Paul Hamlin MD [facility] CPT-48368 Level 3 Est. Patient 14:16:56 POWER EQUIPMENT MECHANICS INSTRUCTOR Checo Conklin MD [facility] CPT-15452 Level 3 Est. Patient 11:04:11 POWER EQUIPMENT MECHANICS INSTRUCTOR Checo Conklin MD [facility] CPT-23855 Level 3 Est. Patient 17:09:26 CDT Dangelo arroyo MD [facility] CPT-54159 Level 3 Est. Patient 16:54:37 CDT Checo Conklin MD [facility] Procedures Code Procedure Name Date Entry Date Standard Desc ription CPT-24199 Abx/Therapy Injection 09:52:15 CDT CPT-64685 Abx/Therapy Injection 18:17:48 CDT CPT-J2550 Phenergan 25 mg (Promethazine) 16:48:23 CDT CPT-J1885 Toradol 60 mg 16:48:23 CDT CPT-91459 Wrist, right, comp 3V - XRAY USE ONLY 09:24:31 CDT CPT-21294 Abd compl w upright - XRAY USE ONLY 1 1:36:54 P[employer] EQUIP[employer] MECHANICS INSTRUCTOR CPT-90736 UA w micro - LAB USE ONLY 17:06:46 CDT 2015 CPT-12695 [facility] Qual - LAB USE ONLY 17:06:46 CDT 05/06 CPT-91552 CMP - LAB USE ONLY 17:06:46 CDT CPT-50381 CBC with Diff - LAB USE ONLY 17:06:45 CDT 2 CPT-42075 Venipuncture Draw Fee 17:06:45 CDT CPT-LR Lesion Removal 19:53:27 CDT CPT-OV Office Visit 11:31:28 CDT CPT-05983 Tubersol 09:39:29 CDT CPT-J2550 Phenergan 25 mg (Promethazine) 13:59:02 [employer] CPT-J1885 Toradol 60 mg (Ketorolac) 13:59:02 [employer] 2012
--- OUTSIDE RECORDS SUMMARY | 2019-09-29 01:16 | XMS REPORT | Clinical Summary ---
Author Author Admin, Bethany Ayala JohanaPWRF [facility] Address Unknown Phone Unavailable Allergies, Adverse [...] MD Concussion, unspecified UTI 599.0 Resolved Checo Conlkin MD Urinary tract infection, site not specified [...] ICD-382.9 Ozzy Conklin MD Onychomycosis, toenails ICD-110.1 Ozzy Conklin [...] RELEASE 1 daily with furosemide POTASSIUM CHLORIDE [id number] Active Paul Hamlin MD Active FUROSEMIDE 20 MG ORAL TABLET 1 daily for swelling FUROSEMIDE 64465629407 Active Paul Hamlin MD Active HYDROCHLOROTHIAZIDE 12.5 MG ORAL CAPSULE 1 po qd PRN Edema 01/10 HYDROCHLOROTHIAZIDE 50099821951 No Longer Active Paul Hamlin MD Active IBUPROFEN 800 MG ORAL TABLET 1 tab every 8 hours as needed for p ain IBUPROFEN 05423413077 No Longer Active Paul Hamlin MD Active PAROXETINE HCL 40 MG ORAL TABLET 1 po qd PAR OXETINE HCL 65517748664 Active Checo Conklin MD Active MIRALAX ORAL POWDER 8.5 to 17g po qd PRN Constipation POLYETHYLENE GLYCOL 3350 23785208791 No Longer Active Checo Conklin MD Active PROTONIX 40 MG ORAL TABLET DELAYED RELEASE 1 pill by m outh daily, for acid reflux PANTOPRAZOLE SODIUM 94283321020 No Longer Activ e Corry Méndez LPN Active FLAGYL 500 MG ORAL TABLET 1 tablet by mouth bid 08/29 METRONIDAZOLE 06654401266 No Longer Active Corry Méndez LPN Active CLARITHROMYCIN 500 MG ORAL TABLET 1 tab po BID x 14 days CLARITHROMYCIN 49752397442 No Longer Active Corry Méndez LPN Active AMOXICILLIN 500 MG ORAL CAPSULE 2 po BID x 14 days for H. Pylori AMOXICILLIN 81700447481 No Longer Active Corry Méndez LPN Active FLUTICASONE PROPIONATE 50 MCG/ACT NASAL SUSPENSION 2 s prays/nostril qd PRN Congestion/Allergies FLUTICASONE PROPIONATE 0452999122 9 No Longer Active Checo Conklin MD Active AMOXICILLIN 500 MG ORAL CAPSULE 2 po BID x 10 days 201 01/15/27 AMOXICILLIN 83276761040 No Longer Active Checo Conklin MD Activ e CLARITIN 10 MG ORAL TABLET 1 tablet by mouth daily as needed for allergies LORATADINE 08845043543 No Longer Active Checo Ortiz MD Active BACTRIM DS 800-160 MG ORAL TABLET 1 tab by mouth twice daily 201 12/19/26 TRIMETHOPRIM-SULFAMETHOXAZOLE 57192226675 No Longer Active Ragini Carrillo MD Active DIFLUCAN 150 MG ORAL TABLET 1 tablet by mouth qod 2015 FLUCONAZOLE 28945636208 No Longer Active Efren Medel SENIOR RESEARCH EXECUTIVE Act mike AZITHROMYCIN 250 MG ORAL TABLET 2 po qd x 1 day, then 1 po q d x 4 days AZITHROMYCIN 04057336618 No Longer Active Efren flores SENIOR RESEARCH EXECUTIVE Active FLAGYL 500 MG ORAL TABLET 1 tablet by mouth bid 04/13 METRONIDAZOLE 07333278913 No Longer Active Checo Conklin MD Acti ve FOCALIN XR 10 MG ORAL CAPSULE EXTENDED RELEASE 24 HOUR 1 po q a.m. DEXMETHYLPHENIDATE HCL 95599949038 Active Checo Conklin MD Active MAGNESIUM CITRATE 1.745 GM/30ML ORAL SOLUTION 150ml po BID P RN Constipation MAGNESIUM CITRATE 15267070945 No Longer Active Checo Conklin MD Active BACTROBAN 2 % EXTERNAL CREAM Apply to affected area BID for up to 10 days MUPIROCIN CALCIUM 09785427388 No Longer Active Checo Conklin MD Active HYDROCODONE-ACETAMINOPHEN 5-325 MG ORAL TABLET 1 tab b y mouth every 6 hours as needed HYDROCODONE-ACETAMINOPHEN 73892810715 No Longer Active Checo Conklin MD Active IBUPROFEN 800 MG ORAL TABLET 1 tab every 8 hours with food 03/20 IBUPROFEN 40707417310 No Longer Active Checo Conklin MD Active DIFLUCAN 150 MG ORAL TABLET 1 tablet by mouth if neede d, hold until symptoms start FLUCONAZOLE 76828011496 No Longer Active Checo Conklin MD Active BACTRIM DS 800-160 MG ORAL TABLET 1 tab by mouth twice daily 201 11/23/03 TRIMETHOPRIM-SULFAMETHOXAZOLE 34904401665 No Longer Active K bernice Méndez LPN Active HYDROCODONE-ACETAMINOPHEN 5-325 MG ORAL TABLET 0.5 to 1 tab by mouth every 6 hours as needed HYDROCODONE-ACETAMINOPHEN 80120530008 No Longer Active Checo Conklin MD Active ONDANSETRON 8 MG ORAL TABLET DISINTEGRATING place one tablet on tongue and allow to dissolve every 6 hours as needed for vomitting ONDANSETRON 68938335993 No Longer Active Checo Conklin MD Activ e COMPRO 25 MG RECTAL SUPPOSITORY insert or apply one garza ppository rectally as directed every 12 hours as needed for nausea PROCHLORPERAZINE 96044329078 No Longer Active Checo Conklin MD A ctive SUMATRIPTAN SUCCINATE 100 MG ORAL TABLET Take one PRN for migran e SUMATRIPTAN SUCCINATE 10350997491 No Longer Active Checo Conklin MD Active TRAVEL SICKNESS 25 MG ORAL TABLET CHEWABLE chew and sw allow one tablet every 6 hours as needed MECLIZINE HCL 45057257856 No Longer A ctive Checo Conklin MD Active BUPROPION HCL ER (SR) 100 MG ORAL TABLET EXTENDED RELE ASE 12 HOUR take one tablet by mouth one time daily for one week then take 1 two times daily BUPROPION HCL 54722314647 No Longer Active Checo gallagher MD Active TERBINAFINE HCL 250 MG ORAL TABLET take one table PO one time da moises TERBINAFINE HCL 72613843890 No Longer Active Checo Conklin MD Active METOCLOPRAMIDE HCL 10 MG ORAL TABLET take one PO tid PRN nausea METOCLOPRAMIDE HCL 31327620377 No Longer Active Checo Conklin MD Active DICLOFENAC SODIUM 75 MG ORAL TABLET DELAYED RELEASE 1 tablet by mouth twice daily PRN Knee pain DICLOFENAC SODIUM 35368652702 No Longer Active Checo Conklin MD Active LAMISIL 250 MG ORAL TABLET 1 po qd TERBINAFI NE HCL 63874092345 No Longer Active Checo Conklin MD Active REGLAN 10 MG ORAL TABLET 1 po TID PRN Nausea 3 METOCLOPRAMIDE HCL 92800415956 No Longer Active Checo Conklin MD Active CELEXA 20 MG ORAL TABLET 1 tablet by mouth daily 09/26 CITALOPRAM HYDROBROMIDE 53746819166 No Longer Active Checo Conklin MD Active AZITHROMYCIN 250 MG ORAL TABLET 2 po qd x 1 day, then 1 po q d x 4 days AZITHROMYCIN 95312023255 No Longer Active Checo Ortiz MD Active HYDROCODONE-ACETAMINOPHEN 5-325 MG ORAL TABLET 1 po q 6hr PRN Pa in HYDROCODONE-ACETAMINOPHEN 42788762982 No Longer Active Lenora Conklin MD Active PHENAZOPYRIDINE HCL 200 MG ORAL TABLET take 1 tab po TID for bladder pain PHENAZOPYRIDINE HCL 66741640955 No Longer Active Joe Conklin MD Active CIPRO 500 MG ORAL TABLET 1 tablet by mouth twice daily CIPROFLOXACIN HCL 17295269168 No Longer Active Dangelo Rangel MD Active HYDROCODONE-ACETAMINOPHEN 5-325 MG ORAL TABLET 1/2 to 1 po q 4 hours prn cough HYDROCODONE-ACETAMINOPHEN 46742108150 No Longer Activ candy Rangel MD Active BACTRIM DS 800-160 MG ORAL TABLET 1 po BID x 7 days 29/04/10 SULFAMETHOXAZOLE-TRIMETHOPRIM 23559649041 No Longer Active Checo Conklin MD Active PREDNISONE 20 MG ORAL TABLET 2 tabs daily for 3 days, 1 tab daily for 3 days, 1/2 tab daily for 2 days PREDNISONE 42068597276 No Longer Active Checo Conklin MD Active TRIAMCINOLONE ACETONIDE 0.1 % EXTERNAL OINTMENT Apply to affected areas TID for up to 2 weeks TRIAMCINOLONE ACETONIDE 61115992535 No Longer Active Checo Conklin MD Active CEFDINIR 300 MG ORAL CAPSULE by mouth twice a day 2013 CEFDINIR 46417681036 No Longer Active Dangelo Rangel MD Acti ve BUPROPION HCL ER (SMOKING DET) 150 MG ORAL TABLET EXTE NDED RELEASE 12 HOUR 1 a day for 1 week then 1 twice a day BUPROPION HCL (SMOKING DETER) 66337813848 No Longer Active Checo Conklin MD Active SIMVASTATIN 20 MG ORAL TABLET 1 po qd SIMVASTAT IN 78589341821 Active Checo Conklin MD Active CHANTIX STARTING MONTH KARTHIK 0.5 MG X 11 & 1 MG X 42 ORA L TABLET 0.5mg daily for 3 days, then 0.5mg BID for 4 days, then 1mg BID VARENICLINE TARTRATE 12124115274 No Longer Active Checo Conklin MD Activ e XANAX 0.5 MG ORAL TABLET 1 po BID PRN anxiety A LPRAZOLAM 27983011698 Active Checo Conklin MD Active CONCERTA 18 MG ORAL TABLET EXTENDED RELEASE 1 po q a.m. METHYLPHENIDATE HCL 51549822394 No Longer Active Checo Conklin MD Active AMBIEN 5 MG ORAL TABLET 1 po qHS PRN Insomnia Z OLPIDEM TARTRATE 71320416001 Active Checo Conklin MD Active TRAZODONE HCL 100 MG ORAL TABLET 0.5 to 1 po qHS PRN Insomnia 20 30/07/08 TRAZODONE HCL 06088687739 No Longer Active Checo Conklin MD Active FIORICET 325-50-40 MG TAB 1 tablet by mouth four times daily as needed [id number] 36091362679 No Longer Active Checo Conklin MD Active PHENERGAN CREAM* 25mg applied to wrist q6hr PRN Nausea PHENERGAN CREAM* No Longer Active Checo Conklin MD A ctive FLONASE 50 MCG/ACT NASAL SUSPENSION 1 spray each nostril am and hs FLUTICASONE PROPIONATE 64203579777 No Longer Active Checo Conklin MD Active ANTIPYRINE-BENZOCAINE 5.4-1.4 % OTIC SOLUTION 1-2 drops in affec yohannes ear BENZOCAINE-ANTIPYRINE 21620759647 No Longer Active Checo Conklin MD Active CEFDINIR 300 MG ORAL CAPSULE 1 po bid CEFDINIR 38931897574 No Longer Active Checo Conklin MD Active PREDNISONE 20 MG ORAL TABLET 2 tabs daily for 3 days, 1 tab daily for 3 days, 1/2 tab daily for 2 days PREDNISONE 34182148133 No Longer Active Checo Conklin MD Active AZITHROMYCIN 250 MG ORAL TABLET 2 po qd x 1 day, then 1 po q d x 4 days AZITHROMYCIN 11946690529 No Longer Active Checo Ortiz MD Active PREDNISONE 20 MG ORAL TABLET 2 tabs daily for 3 days, 1 tab daily for 3 days, 1/2 tab daily for 2 days PREDNISONE 53023872832 No Longer Active Checo Conklin MD Active ZITHROMAX Z-KARTHIK 250 MG ORAL TABLET 2 today, then 1 daily for 4 d ays AZITHROMYCIN 08731530904 No Longer Active Paul Hamlin MD Active FOCALIN XR 10 MG ORAL CAPSULE EXTENDED RELEASE 24 HOUR 1 po q a. m. DEXMETHYLPHENIDATE HCL 81525298731 No Longer Active Paul Hamlin MD Active PERCOCET 10-325 MG ORAL TABLET 1 tablet every 6 hours as needed for pain OXYCODONE-ACETAMINOPHEN 20094033309 No Longer Active Paul Hamlin MD Active LORTAB 5-500 MG ORAL TABLET 1/2 to 1 tablet by mouth e very 4 hours as needed for pain HYDROCODONE-ACETAMINOPHEN 69919004925 No Longer Active Checo Conklin MD Active FOCALIN XR 15 MG ORAL CAPSULE EXTENDED RELEASE 24 HOUR 1 po q a. m. DEXMETHYLPHENIDATE HCL 24802918796 No Longer Active Checo Conklin MD Active ZOFRAN ODT 4 MG ORAL TABLET DISINTEGRATING 1 po q6hr PRN Nausea ONDANSETRON 83709855743 No Longer Active Checo Conklin MD Active PERCOCET 5-325 MG ORAL TABLET 1 tablet by mouth every 6 hour s as needed OXYCODONE-ACETAMINOPHEN 01359506550 No Longer Active Checo Conklin MD Active PYRIDIUM 200 MG ORAL TABLET take 1 tab po TID prn urinary pain. PHENAZOPYRIDINE HCL 68194994646 No Longer Active Checo Joshua Active FLUCONAZOLE 150 MG ORAL TABLET take 1 tab po qday once FLUCONAZOLE 10611886157 No Longer Active Dangelo Rangel MD Acti ve CIPRO 500 MG ORAL TABLET 1 tablet by mouth twice daily CIPROFLOXACIN HCL 52742484334 No Longer Active Dangelo Rangel MD Active PYRIDIUM 200 MG ORAL TABLET take 1 tab po TID prn urinary pain. PYRIDIUM 200 MG ORAL TABLET 2898552 PHENAZOPYRIDINE HCL Inactive PERCOCET 5-325 MG ORAL TABLET 1 tablet by mouth every 6 hour s as needed PERCOCET 5-325 MG ORAL TABLET 1988708 OXYCODONE-ACETAMINOPHEN Inactive ZOFRAN ODT 4 MG ORAL TABLET DISINTEGRATING 1 po q6hr PRN Nausea ZOFRAN ODT 4 MG ORAL TABLET DISINTEGRATING 230928 ONDAN SETRON Inactive FOCALIN XR 15 MG [...] for pain PERCOCET 10-325 MG ORAL TABLET 2713816 OXYCODONE-ACETAMI NOPHEN Inactive FOCALIN XR 10 MG ORAL CAPSULE EXTENDED RELEASE 24 HOUR 1 po q a. m. FOCALIN XR 10 MG ORAL CAPSULE EXTENDED RELEASE 24 HOUR DEXMETHYLPHENIDATE HCL Inactive CEFDINIR 300 MG ORAL CAPSULE 1 po bid CEFDINI R 300 MG ORAL CAPSULE 987753 CEFDINIR Inactive ANTIPYRINE-BENZOCAINE 5.4-1.4 % OTIC SOLUTION 1-2 drops in affec yohannes ear ANTIPYRINE-BENZOCAINE 5.4-1.4 % OTIC SOLUTION BENZOCAINE-ANTIPYRINE Inactive FLONASE 50 MCG/ACT NASAL SUSPENSION 1 spray each nostril am and hs FLONASE 50 MCG/ACT NASAL SUSPENSION 7124127 FLUTICASONE PROPIONATE I nactive PHENERGAN CREAM* 25mg applied to wrist q6hr PRN Nausea PHENERGAN CREAM* Inactive FIORICET 325-50-40 MG TAB 1 tablet by mouth four times daily as needed FIORICET 325-50-40 MG TAB ACETAMINOPHEN-C AFF-BUTALBITAL Inactive TRAZODONE HCL 100 MG ORAL TABLET 0.5 to 1 po qHS PRN Insomnia 20 30/07/08 TRAZODONE HCL 100 MG ORAL TABLET 098324 TRAZODONE HCL Inactive CONCERTA 18 MG ORAL [...] cough HYDROCODONE-ACETAMINOPHEN 5-325 MG ORAL TABLET 8 49464 HYDROCODONE-ACETAMINOPHEN Inactive PHENAZOPYRIDINE HCL 200 MG ORAL TABLET take 1 tab po TID for bladder pain PHENAZOPYRIDINE HCL 200 MG ORAL TABLET 7399777 PHENAZOPYRIDINE HCL Inactive HYDROCODONE-ACETAMINOPHEN 5-325 MG ORAL TABLET 1 po q 6hr PRN Pa in HYDROCODONE-ACETAMINOPHEN 5-325 MG ORAL TABLET 713243 HYDROCODONE-ACETAMINOPHEN Inactive CELEXA 20 MG ORAL TABLET 1 tablet by mouth daily 09/26 CELEXA 20 MG ORAL TABLET 833305 CITALOPRAM HYDROBROMIDE Inactive REGLAN 10 MG ORAL TABLET 1 po TID PRN Nausea 3 REGLAN 10 MG ORAL TABLET 911143 METOCLOPRAMIDE HCL Inactive LAMISIL 250 MG ORAL TABLET 1 po qd L AMISIL 250 MG ORAL TABLET 396308 TERBINAFINE HCL Inactive DICLOFENAC SODIUM 75 MG ORAL TABLET DELAYED RELEASE 1 tablet by mouth twice daily PRN Knee pain DICLOFENAC SODIUM 75 MG ORAL TABLET DELAYED RELEASE 383926 DICLOFENAC SODIUM Inactive METOCLOPRAMIDE HCL 10 MG ORAL TABLET take one PO tid PRN nausea METOCLOPRAMIDE HCL 10 MG ORAL TABLET 174997 METOCLOPRAM ZACH HCL Inactive TERBINAFINE HCL 250 MG ORAL TABLET take one table PO one time da moises TERBINAFINE HCL 250 MG ORAL TABLET 655239 TERBINAFINE H CL Inactive BUPROPION HCL ER [...] SICKNESS 25 M G ORAL TABLET CHEWABLE 504622 MECLIZINE HCL Inactive SUMATRIPTAN SUCCINATE 100 MG ORAL TABLET Take one PRN for migran e SUMATRIPTAN SUCCINATE 100 MG ORAL TABLET 239982 SUMATRIPTAN SUCCINATE Inactive COMPRO 25 MG RECTAL SUPPOSITORY insert or apply one garza ppository rectally as directed every 12 hours as needed for nausea COMPRO 25 MG RECTAL SUPPOSITORY 097725 PROCHLORPERAZINE Inactive ONDANSETRON 8 MG ORAL TABLET DISINTEGRATING place one tablet on tongue and allow to dissolve every 6 hours as needed for vomitting ONDANSETRON 8 MG ORAL TABLET DISINTEGRATING 606814 ONDANSETRON Inactive HYDROCODONE-ACETAMINOPHEN 5-325 MG ORAL TABLET 0.5 to 1 tab by mouth every 6 hours as needed HYDROCODONE-ACETAMIN OPHEN 5-325 MG ORAL TABLET 257182 HYDROCODONE-ACETAMINOPHEN Inactive BACTRIM DS 800-160 MG ORAL TABLET 1 tab by mouth twice daily 201 11/23/03 BACTRIM DS 800-160 MG ORAL TABLET 554239 TRIMETHOPRIM-SULFAMETHOXAZOLE Inactive DIFLUCAN 150 MG ORAL TABLET 1 tablet by mouth if neede d, hold until symptoms start DIFLUCAN 150 MG ORAL TABLET 802960 FLUCONAZ OLE Inactive IBUPROFEN 800 MG ORAL TABLET 1 tab every 8 hours with food 03/20 IBUPROFEN 800 MG ORAL TABLET 108243 IBUPROFEN Krupa ctive HYDROCODONE-ACETAMINOPHEN 5-325 MG ORAL TABLET 1 tab b y mouth every 6 hours as needed HYDROCODONE-ACETAMINOPHEN 5-325 MG ORAL TABLET 075275 HYDROCODONE-ACETAMINOPHEN Inactive BACTROBAN 2 % EXTERNAL CREAM Apply to affected area BID for up to 10 days BACTROBAN 2 % EXTERNAL CREAM 604245 MUPIROCIN CA LCIUM Inactive MAGNESIUM CITRATE 1.745 GM/30ML ORAL SOLUTION 150ml po BID P RN Constipation MAGNESIUM CITRATE 1.745 GM/30ML ORAL SOLUTION 10 72879 MAGNESIUM CITRATE Inactive DIFLUCAN 150 MG ORAL TABLET 1 tablet by mouth qod 2015 DIFLUCAN 150 MG ORAL TABLET 414187 FLUCONAZOLE Inactive BACTRIM DS 800-160 MG ORAL TABLET 1 tab by mouth twice daily 201 12/19/26 BACTRIM DS 800-160 MG ORAL TABLET 683127 TRIMETHOPRIM-SULFAMETHOXAZOLE Inactive CLARITIN 10 MG ORAL TABLET 1 tablet by mouth daily as needed for allergies CLARITIN 10 MG ORAL TABLET 313031 LORATADINE I nactive FLUTICASONE PROPIONATE 50 MCG/ACT NASAL SUSPENSION 2 s prays/nostril qd PRN Congestion/Allergies FLUTICASONE PROPION ATE 50 MCG/ACT NASAL SUSPENSION 1585188 FLUTICASONE PROPIONATE Inactive MIRALAX ORAL POWDER 8.5 to 17g po qd PRN Constipation MIRALAX ORAL POWDER 109609 POLYETHYLENE GLYCOL 3350 Inactive IBUPROFEN 800 MG ORAL TABLET 1 tab every 8 hours as needed for p ain IBUPROFEN 800 MG ORAL TABLET 465097 IBUPROFEN Krupa ctive HYDROCHLOROTHIAZIDE 12.5 MG ORAL CAPSULE 1 po qd PRN Edema 01/10 HYDROCHLOROTHIAZIDE 12.5 MG ORAL CAPSULE 895042 HYDROCH LOROTHIAZIDE Inactive CIPRO 500 MG ORAL TABLET 1 tablet by mouth twice daily CIPRO 500 MG ORAL TABLET 634951 CIPROFLOXACIN HCL Inactive FLUCONAZOLE 150 MG ORAL TABLET take 1 tab po qday once FLUCONAZOLE 150 MG ORAL TABLET 175325 FLUCONAZOLE Inactive ZITHROMAX Z-KARTHIK 250 MG ORAL TABLET 2 today, then 1 daily for 4 d ays ZITHROMAX Z-KARTHIK 250 MG ORAL TABLET 552190 AZITHROMYCIN Inactive PREDNISONE 20 MG ORAL TABLET 2 tabs daily for 3 days, 1 tab daily for 3 days, 1/2 tab daily for 2 days PREDNISONE 20 MG ORAL T ABLET 805538 PREDNISONE Inactive AZITHROMYCIN 250 MG ORAL TABLET 2 po qd x 1 day, then 1 po q d x 4 days AZITHROMYCIN 250 MG ORAL TABLET 714449 AZITHROMY SPARKLE Inactive PREDNISONE 20 MG ORAL TABLET 2 tabs daily for 3 days, 1 tab daily for 3 days, 1/2 tab daily for 2 days PREDNISONE 20 MG ORAL TABLET 183824 PREDNISONE Inactive CEFDINIR 300 MG ORAL CAPSULE by mouth twice a day 2013 CEFDINIR 300 MG ORAL CAPSULE 143318 CEFDINIR Inactive TRIAMCINOLONE ACETONIDE 0.1 % EXTERNAL OINTMENT Apply to affected areas TID for up to 2 weeks TRIAMCINOLONE ACETON ZACH 0.1 % EXTERNAL OINTMENT 4938047 TRIAMCINOLONE ACETONIDE Inactive PREDNISONE 20 MG ORAL TABLET 2 tabs daily for 3 days, 1 tab daily for 3 days, 1/2 tab daily for 2 days PREDNISONE 20 MG ORAL T ABLET 656862 PREDNISONE Inactive BACTRIM DS 800-160 MG ORAL TABLET 1 po BID x 7 days 29/04/10 BACTRIM DS 800-160 MG ORAL TABLET 351664 SULFAMETHOXAZOLE-TRIMETHOP RIM Inactive CIPRO 500 MG ORAL TABLET 1 tablet by mouth twice daily CIPRO 500 MG ORAL TABLET 188375 CIPROFLOXACIN HCL Inactive AZITHROMYCIN 250 MG ORAL TABLET 2 po qd x 1 day, then 1 po q d x 4 days AZITHROMYCIN 250 MG ORAL TABLET 851681 AZITHROMY SPARKLE Inactive FLAGYL 500 MG ORAL TABLET 1 tablet by mouth bid 04/13 FLAGYL 500 MG ORAL TABLET 284170 METRONIDAZOLE Inactive AZITHROMYCIN 250 MG ORAL TABLET 2 po qd x 1 day, then 1 po q d x 4 days AZITHROMYCIN 250 MG ORAL TABLET 787803 AZITHROMY SPARKLE Inactive AMOXICILLIN 500 MG ORAL CAPSULE 2 po BID x 10 days 201 01/15/27 AMOXICILLIN 500 MG ORAL CAPSULE 611951 AMOXICILLIN Inactive AMOXICILLIN 500 MG ORAL CAPSULE 2 po BID x 14 days for H. Pylori AMOXICILLIN 500 MG ORAL CAPSULE 040726 AMOXICILLIN Inactive CLARITHROMYCIN 500 MG ORAL TABLET 1 tab po BID x 14 days CLARITHROMYCIN 500 MG ORAL TABLET 890734 CLARITHROMYCIN Inacti ve FLAGYL 500 MG ORAL TABLET 1 tablet by mouth bid 08/29 FLAGYL 500 MG ORAL TABLET 511741 METRONIDAZOLE Inactive PROTONIX 40 MG ORAL TABLET DELAYED RELEASE 1 pill by m outh daily, for acid reflux PROTONIX 40 MG ORAL TABLET DELAYED RELEAS E 005656 PANTOPRAZOLE SODIUM Inactive Immunizations Vaccine Administration Date [...] ... - Chemistry sodium, serum 138 mmol/L 542-321 9857/06/27 carbon dioxide, venous blood 30.3 mmol/L 21.0-32 [...] ... - Chemistry sodium, serum 139 mmol/L 417-625 9719/11/28 carbon dioxide, venous blood 26.0 mmol/L 21.0-32 [...] 5.0-8.5 Encounters Code Encounter Date Provider Facility CPT-14036 Level 3 Est. Patient 16:46:51 CDT Thomas reynolds DO [facility] CPT-30679 [id number] Vst-Est Level III 14:40:49 CDT Paul Hamlin MD [facility] CPT-91767 Level 4 Est. Patient 11:08:43 CDT Checo Conklin MD [facility]-25359 84195-Nga Vst-Est Level III 09:37:41 CDT Dangelo Rangel MD [facility] CPT-92859 Level 4 Est. Patient 08:57:51 SUPERVISOR INSECTIC[employer] Checo Conklin MD [facility] CPT-18449 Level 3 Est. Patient 11:24:55 SUPERVISOR INSECTICIDE Efren almendarez [facility] CPT-47084 Level 3 Est. Patient 13:05:44 CDT Paul Hamlin MD [facility] CPT-70071 Level 3 Est. Patient 11:29:55 CDT Checo Conklin MD [facility] CPT-87260 Level 4 Est. Patient 11:08:12 SUPERVISOR INSECTICIDE Checo Conklin MD [facility] CPT-61497 Level 4 Est. Patient 16:06:48 SUPERVISOR INSECTICIDE Checo Conklin MD [facility] CPT-54738 Level 3 Est. Patient 09:11:49 CDT Efren almendarez [facility]-72909 Level 2 Est. Patient 19:53:27 CDT Tanner hill MD [facility] CPT-42940 Level 3 Est. Patient 09:15:34 CDT Efren almendarez [facility]-64697 Level 3 Est. Patient 11:28:51 SUPERVISOR INSECTIC[employer] Efren almendarez APRN [facility] CPT-63730 Level 4 Est. Patient 13:55:46 SUPERVISOR INSECTICIDE Checo Conklin MD [facility] CPT-33604 Level 4 Est. Patient 17:10:53 CDT Checo Conklin MD [facility] CPT-77543 Level 3 Est. Patient 15:56:22 CDT Checo Conklin MD [facility] CPT-31408 Level 3 Est. Patient 15:29:07 CDT Checo Conklin MD [facility] CPT-01479 Level 3 Est. Patient 14:38:41 CDT Checo Conklin MD [facility] CPT-81563 Level 3 Est. Patient 15:22:03 SUPERVISOR INSECTICIDE Thomas reynolds DO [facility] CPT-75332 Level 3 Est. Patient 13:34:17 SUPERVISOR INSECTICIDE Checo Conklin MD [facility] CPT-10361 Level 3 Est. Patient 12:29:32 CDT Dangelo arroyo MD [facility]-69088 Level 3 Est. Patient 16:53:02 CDT Checo Conklin MD [facility] CPT-56009 Level 3 Est. Patient 16:37:13 CDT Checo Conklin MD [facility] CPT-58928 Level 3 Est. Patient 16:16:59 CDT Paul Hamlin MD [facility] CPT-83710 Level 3 Est. Patient 14:20:13 CDT Dangelo arroyo MD [facility] CPT-98374 Level 4 Est. Patient 11:29:33 CDT Checo Conklin MD [facility] CPT-87943 Level 3 Est. Patient 17:08:31 CDT Checo Conklin MD [facility] CPT-01440 Level 3 Est. Patient 16:50:42 SUPERVISOR INSECTICIDE Checo Conklin MD [facility] CPT-93055 Level 4 Est. Patient 09:26:08 SUPERVISOR INSECTICIDE Checo Conklin MD [facility] CPT-48726 Level 3 Est. Patient 11:37:10 CDT Checo Conklin MD [facility] CPT-97334 Level 4 Est. Patient 14:07:38 CDT Checo Conklin MD [facility] CPT-58582 Level 3 Est. Patient 09:54:41 CDT Checo Conklin MD [facility] CPT-47751 Level 3 Est. Patient 11:10:54 CDT Paul Hamlin MD [facility] CPT-18591 Level 3 Est. Patient 14:16:56 SUPERVISOR INSECTICIDE Checo Conklin MD [facility] CPT-90782 Level 3 Est. Patient 11:04:11 SUPERVISOR INSECTICIDE Checo Conklin MD [facility] CPT-00017 Level 3 Est. Patient 17:09:26 CDT Dangelo arroyo MD [facility] CPT-73835 Level 3 Est. Patient 16:54:37 CDT Checo Conklin MD [facility] Procedures Code Procedure Name Date Entry Date Standard Desc ription CPT-26104 Abx/Therapy Injection 09:52:15 CDT CPT-75238 Abx/Therapy Injection 18:17:48 CDT CPT-J2550 Phenergan 25 mg (Promethazine) 16:48:23 CDT CPT-J1885 Toradol 60 mg 16:48:23 CDT CPT-88420 Wrist, right, comp 3V - XRAY USE ONLY 09:24:31 CDT CPT-35939 Abd compl w upright - XRAY USE ONLY 1 1:36:54 SUPERVISOR INSE[employer]IC[employer] CPT-33062 UA w micro - LAB USE ONLY 17:06:46 CDT 2015 CPT-09089 [facility]CG Qual - LAB USE ONLY 17:06:46 CDT 05/06 CPT-14355 CMP - LAB USE ONLY 17:06:46 CDT CPT-63816 CBC with Diff - LAB USE ONLY 17:06:45 CDT 2 CPT-10843 Venipuncture Draw Fee 17:06:45 CDT CPT-LR Lesion Removal 19:53:27 CDT CPT-OV Office Visit 11:31:28 CDT CPT-59116 Tubersol 09:39:29 CDT CPT-J2550 Phenergan 25 mg (Promethazine) 13:59:02 SUPERVISOR INSECTIC[employer] CPT-J1885 Toradol 60 mg (Ketorolac) 13:59:02 SUPERVISOR INSECTIC[employer] 2012
--- OUTSIDE RECORDS SUMMARY | 2019-09-29 01:17 | XMS REPORT | Clinical Summary ---
Author Author Admin, Bethany Gonzales Organization [email or web address] Address Unknown Phone Unavailable Allergies, Adverse Reactions, [...] Conklin MD HEADACHE, TENSION ICD-307.81 Inactive Checo oCnklin MD PHARYNGITIS ICD-462 Inactive Checo Conklin MD [...] RELEASE 1 daily with furosemide POTASSIUM CHLORIDE [id number] Active Paul Hamlin MD Active FUROSEMIDE 20 MG ORAL TABLET 1 daily for swelling FUROSEMIDE 47399731509 Active Paul Hamlin MD Active HYDROCHLOROTHIAZIDE 12.5 MG ORAL CAPSULE 1 po qd PRN Edema 01/10 HYDROCHLOROTHIAZIDE 10224747673 No Longer Active Paul Hamlin MD Active IBUPROFEN 800 MG ORAL TABLET 1 tab every 8 hours as needed for p ain IBUPROFEN 50626218351 No Longer Active Paul Hamlin MD Active PAROXETINE HCL 40 MG ORAL TABLET 1 po qd PAR OXETINE HCL 91044184308 Active Checo Conklin MD Active MIRALAX ORAL POWDER 8.5 to 17g po qd PRN Constipation POLYETHYLENE GLYCOL 3350 97171732251 No Longer Active Cehco Conklin MD Active PROTONIX 40 MG ORAL TABLET DELAYED RELEASE 1 pill by m outh daily, for acid reflux PANTOPRAZOLE SODIUM 68394766383 No Longer Activ e Corry Méndez LPN Active FLAGYL 500 MG ORAL TABLET 1 tablet by mouth bid 08/29 METRONIDAZOLE 69683463812 No Longer Active Corry Méndez LPN Active CLARITHROMYCIN 500 MG ORAL TABLET 1 tab po BID x 14 days CLARITHROMYCIN 18950247557 No Longer Active Corry Méndez LPN Active AMOXICILLIN 500 MG ORAL CAPSULE 2 po BID x 14 days for H. Pylori AMOXICILLIN 11066783608 No Longer Active Corry Méndez LPN Active FLUTICASONE PROPIONATE 50 MCG/ACT NASAL SUSPENSION 2 s prays/nostril qd PRN Congestion/Allergies FLUTICASONE PROPIONATE 4820378025 9 No Longer Active Checo Conklin MD Active AMOXICILLIN 500 MG ORAL CAPSULE 2 po BID x 10 days 201 01/15/27 AMOXICILLIN 95257071655 No Longer Active Checo Conklin MD Activ e CLARITIN 10 MG ORAL TABLET 1 tablet by mouth daily as needed for allergies LORATADINE 95186664567 No Longer Active Checo Ortiz MD Active BACTRIM DS 800-160 MG ORAL TABLET 1 tab by mouth twice daily 201 12/19/26 TRIMETHOPRIM-SULFAMETHOXAZOLE 99416008253 No Longer Active Ragini Carrillo MD Active DIFLUCAN 150 MG ORAL TABLET 1 tablet by mouth qod 2015 FLUCONAZOLE 30784280617 No Longer Active Efren Medel COMPUTER SPECIALIST Act mike AZITHROMYCIN 250 MG ORAL TABLET 2 po qd x 1 day, then 1 po q d x 4 days AZITHROMYCIN 65082330065 No Longer Active Efren flores COMPUTER SPECIALIST Active FLAGYL 500 MG ORAL TABLET 1 tablet by mouth bid 04/13 METRONIDAZOLE 82615469443 No Longer Active Checo Conklin MD Acti ve FOCALIN XR 10 MG ORAL CAPSULE EXTENDED RELEASE 24 HOUR 1 po q a.m. DEXMETHYLPHENIDATE HCL 61908045540 Active Checo Conklin MD Active MAGNESIUM CITRATE 1.745 GM/30ML ORAL SOLUTION 150ml po BID P RN Constipation MAGNESIUM CITRATE 13652949002 No Longer Active Checo Conklin MD Active BACTROBAN 2 % EXTERNAL CREAM Apply to affected area BID for up to 10 days MUPIROCIN CALCIUM 30201700437 No Longer Active Checo Conklin MD Active HYDROCODONE-ACETAMINOPHEN 5-325 MG ORAL TABLET 1 tab b y mouth every 6 hours as needed HYDROCODONE-ACETAMINOPHEN 12353892291 No Longer Active Checo Conklin MD Active IBUPROFEN 800 MG ORAL TABLET 1 tab every 8 hours with food 03/20 IBUPROFEN 34766982030 No Longer Active Checo Conklin MD Active DIFLUCAN 150 MG ORAL TABLET 1 tablet by mouth if neede d, hold until symptoms start FLUCONAZOLE 14452207994 No Longer Active Checo Conklin MD Active BACTRIM DS 800-160 MG ORAL TABLET 1 tab by mouth twice daily 201 11/23/03 TRIMETHOPRIM-SULFAMETHOXAZOLE 74347477035 No Longer Active K bernice Méndez LPN Active HYDROCODONE-ACETAMINOPHEN 5-325 MG ORAL TABLET 0.5 to 1 tab by mouth every 6 hours as needed HYDROCODONE-ACETAMINOPHEN 16343681591 No Longer Active Checo Conklin MD Active ONDANSETRON 8 MG ORAL TABLET DISINTEGRATING place one tablet on tongue and allow to dissolve every 6 hours as needed for vomitting ONDANSETRON 77641218756 No Longer Active Checo Conklin MD Activ e COMPRO 25 MG RECTAL SUPPOSITORY insert or apply one garza ppository rectally as directed every 12 hours as needed for nausea PROCHLORPERAZINE 43801785570 No Longer Active Checo Conklin MD A ctive SUMATRIPTAN SUCCINATE 100 MG ORAL TABLET Take one PRN for migran e SUMATRIPTAN SUCCINATE 75791796720 No Longer Active Checo Conklin MD Active TRAVEL SICKNESS 25 MG ORAL TABLET CHEWABLE chew and sw allow one tablet every 6 hours as needed MECLIZINE HCL 85232815087 No Longer A ctive Checo Conklin MD Active BUPROPION HCL ER (SR) 100 MG ORAL TABLET EXTENDED RELE ASE 12 HOUR take one tablet by mouth one time daily for one week then take 1 two times daily BUPROPION HCL 55180434835 No Longer Active Checo gallagher MD Active TERBINAFINE HCL 250 MG ORAL TABLET take one table PO one time da moises TERBINAFINE HCL 56430247757 No Longer Active Checo Conklin MD Active METOCLOPRAMIDE HCL 10 MG ORAL TABLET take one PO tid PRN nausea METOCLOPRAMIDE HCL 74838169496 No Longer Active Checo Conklin MD Active DICLOFENAC SODIUM 75 MG ORAL TABLET DELAYED RELEASE 1 tablet by mouth twice daily PRN Knee pain DICLOFENAC SODIUM 03641554363 No Longer Active Checo Conklin MD Active LAMISIL 250 MG ORAL TABLET 1 po qd TERBINAFI NE HCL 63892490054 No Longer Active Checo Conklin MD Active REGLAN 10 MG ORAL TABLET 1 po TID PRN Nausea 3 METOCLOPRAMIDE HCL 02093760111 No Longer Active Checo Conklin MD Active CELEXA 20 MG ORAL TABLET 1 tablet by mouth daily 09/26 CITALOPRAM HYDROBROMIDE 04982166114 No Longer Active Checo Conklin MD Active AZITHROMYCIN 250 MG ORAL TABLET 2 po qd x 1 day, then 1 po q d x 4 days AZITHROMYCIN 08075856609 No Longer Active Checo Ortiz MD Active HYDROCODONE-ACETAMINOPHEN 5-325 MG ORAL TABLET 1 po q 6hr PRN Pa in HYDROCODONE-ACETAMINOPHEN 82480173007 No Longer Active Lenora Conklin MD Active PHENAZOPYRIDINE HCL 200 MG ORAL TABLET take 1 tab po TID for bladder pain PHENAZOPYRIDINE HCL 42436806034 No Longer Active Joe Conklin MD Active CIPRO 500 MG ORAL TABLET 1 tablet by mouth twice daily CIPROFLOXACIN HCL 50717361801 No Longer Active Dangelo Rangel MD Active HYDROCODONE-ACETAMINOPHEN 5-325 MG ORAL TABLET 1/2 to 1 po q 4 hours prn cough HYDROCODONE-ACETAMINOPHEN 14611733935 No Longer Activ candy Rangel MD Active BACTRIM DS 800-160 MG ORAL TABLET 1 po BID x 7 days 29/04/10 SULFAMETHOXAZOLE-TRIMETHOPRIM 81920233555 No Longer Active Checo Conklin MD Active PREDNISONE 20 MG ORAL TABLET 2 tabs daily for 3 days, 1 tab daily for 3 days, 1/2 tab daily for 2 days PREDNISONE 95391389940 No Longer Active Checo Conklin MD Active TRIAMCINOLONE ACETONIDE 0.1 % EXTERNAL OINTMENT Apply to affected areas TID for up to 2 weeks TRIAMCINOLONE ACETONIDE 70678112222 No Longer Active Checo Conklin MD Active CEFDINIR 300 MG ORAL CAPSULE by mouth twice a day 2013 CEFDINIR 88140647499 No Longer Active Dangelo Rangel MD Acti ve BUPROPION HCL ER (SMOKING DET) 150 MG ORAL TABLET EXTE NDED RELEASE 12 HOUR 1 a day for 1 week then 1 twice a day BUPROPION HCL (SMOKING DETER) 21256107525 No Longer Active Checo Conklin MD Active SIMVASTATIN 20 MG ORAL TABLET 1 po qd SIMVASTAT IN 96213855984 Active Checo Conklin MD Active CHANTIX STARTING MONTH KARTHIK 0.5 MG X 11 & 1 MG X 42 ORA L TABLET 0.5mg daily for 3 days, then 0.5mg BID for 4 days, then 1mg BID VARENICLINE TARTRATE 45404314631 No Longer Active Checo Conklin MD Activ e XANAX 0.5 MG ORAL TABLET 1 po BID PRN anxiety A LPRAZOLAM 11280273262 Active Checo Conklin MD Active CONCERTA 18 MG ORAL TABLET EXTENDED RELEASE 1 po q a.m. METHYLPHENIDATE HCL 89241301444 No Longer Active Checo Conklin MD Active AMBIEN 5 MG ORAL TABLET 1 po qHS PRN Insomnia Z OLPIDEM TARTRATE 39504371650 Active Checo Conklin MD Active TRAZODONE HCL 100 MG ORAL TABLET 0.5 to 1 po qHS PRN Insomnia 20 30/07/08 TRAZODONE HCL 70023609399 No Longer Active Checo Conklin MD Active FIORICET 325-50-40 MG TAB 1 tablet by mouth four times daily as needed [id number] 71916647885 No Longer Active Checo Conklin MD Active PHENERGAN CREAM* 25mg applied to wrist q6hr PRN Nausea PHENERGAN CREAM* No Longer Active Checo Conklin MD A ctive FLONASE 50 MCG/ACT NASAL SUSPENSION 1 spray each nostril am and hs FLUTICASONE PROPIONATE 64594296261 No Longer Active Checo Conklin MD Active ANTIPYRINE-BENZOCAINE 5.4-1.4 % OTIC SOLUTION 1-2 drops in affec yohannes ear BENZOCAINE-ANTIPYRINE 38716699960 No Longer Active Checo Conklin MD Active CEFDINIR 300 MG ORAL CAPSULE 1 po bid CEFDINIR 92492004473 No Longer Active Checo Conklin MD Active PREDNISONE 20 MG ORAL TABLET 2 tabs daily for 3 days, 1 tab daily for 3 days, 1/2 tab daily for 2 days PREDNISONE 75010191503 No Longer Active Checo Conklin MD Active AZITHROMYCIN 250 MG ORAL TABLET 2 po qd x 1 day, then 1 po q d x 4 days AZITHROMYCIN 00480832894 No Longer Active Checo Ortiz MD Active PREDNISONE 20 MG ORAL TABLET 2 tabs daily for 3 days, 1 tab daily for 3 days, 1/2 tab daily for 2 days PREDNISONE 53059929531 No Longer Active Checo Conklin MD Active ZITHROMAX Z-KARTHIK 250 MG ORAL TABLET 2 today, then 1 daily for 4 d ays AZITHROMYCIN 51308126145 No Longer Active Paul Hamlin MD Active FOCALIN XR 10 MG ORAL CAPSULE EXTENDED RELEASE 24 HOUR 1 po q a. m. DEXMETHYLPHENIDATE HCL 53972408048 No Longer Active Paul Hamlin MD Active PERCOCET 10-325 MG ORAL TABLET 1 tablet every 6 hours as needed for pain OXYCODONE-ACETAMINOPHEN 29729636867 No Longer Active Paul Hamlin MD Active LORTAB 5-500 MG ORAL TABLET 1/2 to 1 tablet by mouth e very 4 hours as needed for pain HYDROCODONE-ACETAMINOPHEN 31033060406 No Longer Active Checo Conklin MD Active FOCALIN XR 15 MG ORAL CAPSULE EXTENDED RELEASE 24 HOUR 1 po q a. m. DEXMETHYLPHENIDATE HCL 83673219246 No Longer Active Checo Conklin MD Active ZOFRAN ODT 4 MG ORAL TABLET DISINTEGRATING 1 po q6hr PRN Nausea ONDANSETRON 68041874588 No Longer Active Checo Conklin MD Active PERCOCET 5-325 MG ORAL TABLET 1 tablet by mouth every 6 hour s as needed OXYCODONE-ACETAMINOPHEN 73421632756 No Longer Active Checo Conklin MD Active PYRIDIUM 200 MG ORAL TABLET take 1 tab po TID prn urinary pain. PHENAZOPYRIDINE HCL 66805659948 No Longer Active Checo Joshua Active FLUCONAZOLE 150 MG ORAL TABLET take 1 tab po qday once FLUCONAZOLE 26763324837 No Longer Active Dangelo Rangel MD Acti ve CIPRO 500 MG ORAL TABLET 1 tablet by mouth twice daily CIPROFLOXACIN HCL 57728306800 No Longer Active Dangelo Rangel MD Active PYRIDIUM 200 MG ORAL TABLET take 1 tab po TID prn urinary pain. PYRIDIUM 200 MG ORAL TABLET 8965774 PHENAZOPYRIDINE HCL Inactive PERCOCET 5-325 MG ORAL TABLET 1 tablet by mouth every 6 hour s as needed PERCOCET 5-325 MG ORAL TABLET 5706607 OXYCODONE-ACETAMINOPHEN Inactive ZOFRAN ODT 4 MG ORAL TABLET DISINTEGRATING 1 po q6hr PRN Nausea ZOFRAN ODT 4 MG ORAL TABLET DISINTEGRATING 401903 ONDAN SETRON Inactive FOCALIN XR 15 MG [...] for pain PERCOCET 10-325 MG ORAL TABLET 3554112 OXYCODONE-ACETAMI NOPHEN Inactive FOCALIN XR 10 MG ORAL CAPSULE EXTENDED RELEASE 24 HOUR 1 po q a. m. FOCALIN XR 10 MG ORAL CAPSULE EXTENDED RELEASE 24 HOUR DEXMETHYLPHENIDATE HCL Inactive CEFDINIR 300 MG ORAL CAPSULE 1 po bid CEFDINI R 300 MG ORAL CAPSULE 105335 CEFDINIR Inactive ANTIPYRINE-BENZOCAINE 5.4-1.4 % OTIC SOLUTION 1-2 drops in affec yohannes ear ANTIPYRINE-BENZOCAINE 5.4-1.4 % OTIC SOLUTION BENZOCAINE-ANTIPYRINE Inactive FLONASE 50 MCG/ACT NASAL SUSPENSION 1 spray each nostril am and hs FLONASE 50 MCG/ACT NASAL SUSPENSION 4867674 FLUTICASONE PROPIONATE I nactive PHENERGAN CREAM* 25mg applied to wrist q6hr PRN Nausea PHENERGAN CREAM* Inactive FIORICET 325-50-40 MG TAB 1 tablet by mouth four times daily as needed FIORICET 325-50-40 MG TAB ACETAMINOPHEN-C AFF-BUTALBITAL Inactive TRAZODONE HCL 100 MG ORAL TABLET 0.5 to 1 po qHS PRN Insomnia 20 30/07/08 TRAZODONE HCL 100 MG ORAL TABLET 438751 TRAZODONE HCL Inactive CONCERTA 18 MG ORAL [...] cough HYDROCODONE-ACETAMINOPHEN 5-325 MG ORAL TABLET 8 01470 HYDROCODONE-ACETAMINOPHEN Inactive PHENAZOPYRIDINE HCL 200 MG ORAL TABLET take 1 tab po TID for bladder pain PHENAZOPYRIDINE HCL 200 MG ORAL TABLET 8694412 PHENAZOPYRIDINE HCL Inactive HYDROCODONE-ACETAMINOPHEN 5-325 MG ORAL TABLET 1 po q 6hr PRN Pa in HYDROCODONE-ACETAMINOPHEN 5-325 MG ORAL TABLET 939337 HYDROCODONE-ACETAMINOPHEN Inactive CELEXA 20 MG ORAL TABLET 1 tablet by mouth daily 09/26 CELEXA 20 MG ORAL TABLET 564405 CITALOPRAM HYDROBROMIDE Inactive REGLAN 10 MG ORAL TABLET 1 po TID PRN Nausea 3 REGLAN 10 MG ORAL TABLET 779836 METOCLOPRAMIDE HCL Inactive LAMISIL 250 MG ORAL TABLET 1 po qd L AMISIL 250 MG ORAL TABLET 590059 TERBINAFINE HCL Inactive DICLOFENAC SODIUM 75 MG ORAL TABLET DELAYED RELEASE 1 tablet by mouth twice daily PRN Knee pain DICLOFENAC SODIUM 75 MG ORAL TABLET DELAYED RELEASE 438690 DICLOFENAC SODIUM Inactive METOCLOPRAMIDE HCL 10 MG ORAL TABLET take one PO tid PRN nausea METOCLOPRAMIDE HCL 10 MG ORAL TABLET 678683 METOCLOPRAM ZACH HCL Inactive TERBINAFINE HCL 250 MG ORAL TABLET take one table PO one time da moises TERBINAFINE HCL 250 MG ORAL TABLET 288144 TERBINAFINE H CL Inactive BUPROPION HCL ER [...] SICKNESS 25 M G ORAL TABLET CHEWABLE 888561 MECLIZINE HCL Inactive SUMATRIPTAN SUCCINATE 100 MG ORAL TABLET Take one PRN for migran e SUMATRIPTAN SUCCINATE 100 MG ORAL TABLET 440372 SUMATRIPTAN SUCCINATE Inactive COMPRO 25 MG RECTAL SUPPOSITORY insert or apply one garza ppository rectally as directed every 12 hours as needed for nausea COMPRO 25 MG RECTAL SUPPOSITORY 418433 PROCHLORPERAZINE Inactive ONDANSETRON 8 MG ORAL TABLET DISINTEGRATING place one tablet on tongue and allow to dissolve every 6 hours as needed for vomitting ONDANSETRON 8 MG ORAL TABLET DISINTEGRATING 287101 ONDANSETRON Inactive HYDROCODONE-ACETAMINOPHEN 5-325 MG ORAL TABLET 0.5 to 1 tab by mouth every 6 hours as needed HYDROCODONE-ACETAMIN OPHEN 5-325 MG ORAL TABLET 808987 HYDROCODONE-ACETAMINOPHEN Inactive BACTRIM DS 800-160 MG ORAL TABLET 1 tab by mouth twice daily 201 11/23/03 BACTRIM DS 800-160 MG ORAL TABLET 424835 TRIMETHOPRIM-SULFAMETHOXAZOLE Inactive DIFLUCAN 150 MG ORAL TABLET 1 tablet by mouth if neede d, hold until symptoms start DIFLUCAN 150 MG ORAL TABLET 318835 FLUCONAZ OLE Inactive IBUPROFEN 800 MG ORAL TABLET 1 tab every 8 hours with food 03/20 IBUPROFEN 800 MG ORAL TABLET 043874 IBUPROFEN Krupa ctive HYDROCODONE-ACETAMINOPHEN 5-325 MG ORAL TABLET 1 tab b y mouth every 6 hours as needed HYDROCODONE-ACETAMINOPHEN 5-325 MG ORAL TABLET 867220 HYDROCODONE-ACETAMINOPHEN Inactive BACTROBAN 2 % EXTERNAL CREAM Apply to affected area BID for up to 10 days BACTROBAN 2 % EXTERNAL CREAM 018568 MUPIROCIN CA LCIUM Inactive MAGNESIUM CITRATE 1.745 GM/30ML ORAL SOLUTION 150ml po BID P RN Constipation MAGNESIUM CITRATE 1.745 GM/30ML ORAL SOLUTION 10 33796 MAGNESIUM CITRATE Inactive DIFLUCAN 150 MG ORAL TABLET 1 tablet by mouth qod 2015 DIFLUCAN 150 MG ORAL TABLET 840816 FLUCONAZOLE Inactive BACTRIM DS 800-160 MG ORAL TABLET 1 tab by mouth twice daily 201 12/19/26 BACTRIM DS 800-160 MG ORAL TABLET 129724 TRIMETHOPRIM-SULFAMETHOXAZOLE Inactive CLARITIN 10 MG ORAL TABLET 1 tablet by mouth daily as needed for allergies CLARITIN 10 MG ORAL TABLET 773739 LORATADINE I nactive FLUTICASONE PROPIONATE 50 MCG/ACT NASAL SUSPENSION 2 s prays/nostril qd PRN Congestion/Allergies FLUTICASONE PROPION ATE 50 MCG/ACT NASAL SUSPENSION 0464686 FLUTICASONE PROPIONATE Inactive MIRALAX ORAL POWDER 8.5 to 17g po qd PRN Constipation MIRALAX ORAL POWDER 328471 POLYETHYLENE GLYCOL 3350 Inactive IBUPROFEN 800 MG ORAL TABLET 1 tab every 8 hours as needed for p ain IBUPROFEN 800 MG ORAL TABLET 368074 IBUPROFEN Krupa ctive HYDROCHLOROTHIAZIDE 12.5 MG ORAL CAPSULE 1 po qd PRN Edema 01/10 HYDROCHLOROTHIAZIDE 12.5 MG ORAL CAPSULE 662628 HYDROCH LOROTHIAZIDE Inactive CIPRO 500 MG ORAL TABLET 1 tablet by mouth twice daily CIPRO 500 MG ORAL TABLET 562416 CIPROFLOXACIN HCL Inactive FLUCONAZOLE 150 MG ORAL TABLET take 1 tab po qday once FLUCONAZOLE 150 MG ORAL TABLET 159418 FLUCONAZOLE Inactive ZITHROMAX Z-KARTHIK 250 MG ORAL TABLET 2 today, then 1 daily for 4 d ays ZITHROMAX Z-KARTHIK 250 MG ORAL TABLET 145523 AZITHROMYCIN Inactive PREDNISONE 20 MG ORAL TABLET 2 tabs daily for 3 days, 1 tab daily for 3 days, 1/2 tab daily for 2 days PREDNISONE 20 MG ORAL T ABLET 946305 PREDNISONE Inactive AZITHROMYCIN 250 MG ORAL TABLET 2 po qd x 1 day, then 1 po q d x 4 days AZITHROMYCIN 250 MG ORAL TABLET 469219 AZITHROMY SPARKLE Inactive PREDNISONE 20 MG ORAL TABLET 2 tabs daily for 3 days, 1 tab daily for 3 days, 1/2 tab daily for 2 days PREDNISONE 20 MG ORAL TABLET 101013 PREDNISONE Inactive CEFDINIR 300 MG ORAL CAPSULE by mouth twice a day 2013 CEFDINIR 300 MG ORAL CAPSULE 643634 CEFDINIR Inactive TRIAMCINOLONE ACETONIDE 0.1 % EXTERNAL OINTMENT Apply to affected areas TID for up to 2 weeks TRIAMCINOLONE ACETON ZACH 0.1 % EXTERNAL OINTMENT 7347890 TRIAMCINOLONE ACETONIDE Inactive PREDNISONE 20 MG ORAL TABLET 2 tabs daily for 3 days, 1 tab daily for 3 days, 1/2 tab daily for 2 days PREDNISONE 20 MG ORAL T ABLET 484398 PREDNISONE Inactive BACTRIM DS 800-160 MG ORAL TABLET 1 po BID x 7 days 29/04/10 BACTRIM DS 800-160 MG ORAL TABLET 112311 SULFAMETHOXAZOLE-TRIMETHOP RIM Inactive CIPRO 500 MG ORAL TABLET 1 tablet by mouth twice daily CIPRO 500 MG ORAL TABLET 610996 CIPROFLOXACIN HCL Inactive AZITHROMYCIN 250 MG ORAL TABLET 2 po qd x 1 day, then 1 po q d x 4 days AZITHROMYCIN 250 MG ORAL TABLET 013392 AZITHROMY SPARKLE Inactive FLAGYL 500 MG ORAL TABLET 1 tablet by mouth bid 04/13 FLAGYL 500 MG ORAL TABLET 842365 METRONIDAZOLE Inactive AZITHROMYCIN 250 MG ORAL TABLET 2 po qd x 1 day, then 1 po q d x 4 days AZITHROMYCIN 250 MG ORAL TABLET 617331 AZITHROMY SPARKLE Inactive AMOXICILLIN 500 MG ORAL CAPSULE 2 po BID x 10 days 201 01/15/27 AMOXICILLIN 500 MG ORAL CAPSULE 297885 AMOXICILLIN Inactive AMOXICILLIN 500 MG ORAL CAPSULE 2 po BID x 14 days for H. Pylori AMOXICILLIN 500 MG ORAL CAPSULE 392629 AMOXICILLIN Inactive CLARITHROMYCIN 500 MG ORAL TABLET 1 tab po BID x 14 days CLARITHROMYCIN 500 MG ORAL TABLET 114465 CLARITHROMYCIN Inacti ve FLAGYL 500 MG ORAL TABLET 1 tablet by mouth bid 08/29 FLAGYL 500 MG ORAL TABLET 088038 METRONIDAZOLE Inactive PROTONIX 40 MG ORAL TABLET DELAYED RELEASE 1 pill by m kayceeh daily, for acid reflux PROTONIX 40 MG ORAL TABLET DELAYED RELEAS E 596878 PANTOPRAZOLE SODIUM Inactive Immunizations Vaccine Administration Date [...] ... - Chemistry sodium, serum 138 mmol/L 218-872 3154/06/27 carbon dioxide, venous blood 30.3 mmol/L 21.0-32 [...] ... - Chemistry sodium, serum 139 mmol/L 516-351 5221/11/28 carbon dioxide, venous blood 26.0 mmol/L 21.0-32 [...] 5.0-8.5 Encounters Code Encounter Date Provider Facility CPT-35157 Level 3 Est. Patient 16:46:51 CDT Thomas reynolds DO [facility] CPT-20275 [id number] Vst-Est Level III 14:40:49 CDT Paul Hamlin MD [facility] CPT-73500 Level 4 Est. Patient 11:08:43 CDT Checo Conklin MD [facility]-06073 [id number] Vst-Est Level III 09:37:41 CDT Dangelo Rangel MD [facility] CPT-27776 Level 4 Est. Patient 08:57:51 CERTIFIED MEDICATION AIDE Checo Conklin MD [facility] CPT-34790 Level 3 Est. Patient 11:24:55 CERTIFIED MEDICATION AIDE Efren almendarez [facility] CPT-88707 Level 3 Est. Patient 13:05:44 CDT Paul Hamlin MD [facility] CPT-77019 Level 3 Est. Patient 11:29:55 CDT Checo Conklin MD [facility] CPT-24472 Level 4 Est. Patient 11:08:12 CERTIFIED MEDICATION AIDE Checo Conklin MD [facility] CPT-52790 Level 4 Est. Patient 16:06:48 CERTIFIED MEDICATION AIDE Checo Conklin MD [facility] CPT-58514 Level 3 Est. Patient 09:11:49 CDT Efren almendarez [facility]-13562 Level 2 Est. Patient 19:53:27 CDT Tanner hill MD [facility] CPT-77041 Level 3 Est. Patient 09:15:34 CDT Efren almendarez [facility]-52446 Level 3 Est. Patient 11:28:51 CERTIFIED MEDICATION AIDE Efren almendarez APRN [facility] CPT-57046 Level 4 Est. Patient 13:55:46 CERTIFIED MEDICATION AIDE Checo Conklin MD [facility] CPT-73999 Level 4 Est. Patient 17:10:53 CDT Checo Conklin MD [facility] CPT-41772 Level 3 Est. Patient 15:56:22 CDT Checo Conklin MD [facility] CPT-76556 Level 3 Est. Patient 15:29:07 CDT Checo Conklin MD [facility] CPT-82000 Level 3 Est. Patient 14:38:41 CDT Checo Conklin MD [facility] CPT-16267 Level 3 Est. Patient 15:22:03 CERTIFIED MEDICATION AIDE Thomas reynolds DO [facility] CPT-02827 Level 3 Est. Patient 13:34:17 CERTIFIED MEDICATION AIDE Checo Conklin MD [facility] CPT-83879 Level 3 Est. Patient 12:29:32 CDT Dangelo arroyo MD [facility] CPT-92148 Level 3 Est. Patient 16:53:02 CDT Checo Conklin MD [facility] CPT-36353 Level 3 Est. Patient 16:37:13 CDT Checo Conklin MD [facility] CPT-41083 Level 3 Est. Patient 16:16:59 CDT Paul Hamlin MD [facility] CPT-58927 Level 3 Est. Patient 14:20:13 CDT Dangelo arroyo MD [facility] CPT-97844 Level 4 Est. Patient 11:29:33 CDT Checo Conklin MD [facility] CPT-53387 Level 3 Est. Patient 17:08:31 CDT Checo Conklin MD [facility] CPT-00536 Level 3 Est. Patient 16:50:42 CERTIFIED MEDICATION AIDE Checo Conklin MD [facility] CPT-24039 Level 4 Est. Patient 09:26:08 CERTIFIED MEDICATION AIDE Checo Conklin MD [facility] CPT-90904 Level 3 Est. Patient 11:37:10 CDT Checo Conklin MD [facility] CPT-62348 Level 4 Est. Patient 14:07:38 CDT Checo Conklin MD [facility] CPT-31603 Level 3 Est. Patient 09:54:41 CDT Checo Conklin MD [facility] CPT-80883 Level 3 Est. Patient 11:10:54 CDT Paul Hamlin MD [facility] CPT-25261 Level 3 Est. Patient 14:16:56 CERTIFIED MEDICATION AIDE Checo Conklin MD [facility] CPT-24791 Level 3 Est. Patient 11:04:11 CERTIFIED MEDICATION AIDE Checo Conklin MD [facility] CPT-43185 Level 3 Est. Patient 17:09:26 CDT Dangelo arroyo MD [facility] CPT-83049 Level 3 Est. Patient 16:54:37 CDT Checo Conklin MD [facility] Procedures Code Procedure Name Date Entry Date Standard Desc ription CPT-96052 Abx/Therapy Injection 09:52:15 CDT CPT-90261 Abx/Therapy Injection 18:17:48 CDT CPT-J2550 Phenergan 25 mg (Promethazine) 16:48:23 CDT CPT-J1885 Toradol 60 mg 16:48:23 CDT CPT-73125 Wrist, right, comp 3V - XRAY USE ONLY 09:24:31 CDT CPT-02414 Abd compl w upright - XRAY USE ONLY 1 1:36:54 CERTIFIED MEDICATION AIDE CPT-14239 UA w micro - LAB USE ONLY 17:06:46 CDT 2015 CPT-46054 [facility]CG Qual - LAB USE ONLY 17:06:46 CDT 05/06 CPT-26633 CMP - LAB USE ONLY 17:06:46 CDT CPT-92159 CBC with Diff - LAB USE ONLY 17:06:45 CDT 2 CPT-05493 Venipuncture Draw Fee 17:06:45 CDT CPT-LR Lesion Removal 19:53:27 CDT CPT-OV Office Visit 11:31:28 CDT CPT-84408 Tubersol 09:39:29 CDT CPT-J2550 Phenergan 25 mg (Promethazine) 13:59:02 CERTIFIED MEDICATION AIDE CPT-J1885 Toradol 60 mg (Ketorolac) 13:59:02 CERTIFIED MEDICATION AIDE 2012
--- OUTSIDE RECORDS SUMMARY | 2019-09-29 01:17 | XMS REPORT | Clinical Summary ---
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 MD Neoplasm of uncertain behavior of [...] Checo Joshua Breast mass, right ICD-611.72 Inactive Cehco Conklin MD Mastalgia ICD-611.71 Inactive Checo Joshua [...] RELEASE 1 daily with furosemide POTASSIUM CHLORIDE [id number] Active Paul Hamlin MD Active FUROSEMIDE 20 MG ORAL TABLET 1 daily for swelling FUROSEMIDE 50187801682 Active Paul Hamlin MD Active HYDROCHLOROTHIAZIDE 12.5 MG ORAL CAPSULE 1 po qd PRN Edema 01/10 HYDROCHLOROTHIAZIDE 04028819395 No Longer Active Paul Hamlin MD Active IBUPROFEN 800 MG ORAL TABLET 1 tab every 8 hours as needed for p ain IBUPROFEN 92591095846 No Longer Active Paul Hamlin MD Active PAROXETINE HCL 40 MG ORAL TABLET 1 po qd PAR OXETINE HCL 25354474293 Active Checo Conklin MD Active MIRALAX ORAL POWDER 8.5 to 17g po qd PRN Constipation POLYETHYLENE GLYCOL 3350 33268806857 No Longer Active Checo Conklin MD Active PROTONIX 40 MG ORAL TABLET DELAYED RELEASE 1 pill by m outh daily, for acid reflux PANTOPRAZOLE SODIUM 33641122273 No Longer Activ e Corry Méndez LPN Active FLAGYL 500 MG ORAL TABLET 1 tablet by mouth bid 08/29 METRONIDAZOLE 70043793907 No Longer Active Corry Méndez LPN Active CLARITHROMYCIN 500 MG ORAL TABLET 1 tab po BID x 14 days CLARITHROMYCIN 21488556378 No Longer Active Corry Méndez LPN Active AMOXICILLIN 500 MG ORAL CAPSULE 2 po BID x 14 days for H. Pylori AMOXICILLIN 69297007453 No Longer Active Corry Méndez LPN Active FLUTICASONE PROPIONATE 50 MCG/ACT NASAL SUSPENSION 2 s prays/nostril qd PRN Congestion/Allergies FLUTICASONE PROPIONATE 3363733230 9 No Longer Active Checo Conklin MD Active AMOXICILLIN 500 MG ORAL CAPSULE 2 po BID x 10 days 201 01/15/27 AMOXICILLIN 58462636854 No Longer Active Checo Conklin MD Activ e CLARITIN 10 MG ORAL TABLET 1 tablet by mouth daily as needed for allergies LORATADINE 70484336741 No Longer Active Checo Ortiz MD Active BACTRIM DS 800-160 MG ORAL TABLET 1 tab by mouth twice daily 201 12/19/26 TRIMETHOPRIM-SULFAMETHOXAZOLE 39791191343 No Longer Active Ragini Carrillo MD Active DIFLUCAN 150 MG ORAL TABLET 1 tablet by mouth qod 2015 FLUCONAZOLE 59165979265 No Longer Active Efren Medel ARTS ADMINISTRATOR OR MANAGER Act mike AZITHROMYCIN 250 MG ORAL TABLET 2 po qd x 1 day, then 1 po q d x 4 days AZITHROMYCIN 61193336506 No Longer Active Efren flores ARTS ADMINISTRATOR OR MANAGER Active FLAGYL 500 MG ORAL TABLET 1 tablet by mouth bid 04/13 METRONIDAZOLE 70930169067 No Longer Active Checo Conklin MD Acti ve FOCALIN XR 10 MG ORAL CAPSULE EXTENDED RELEASE 24 HOUR 1 po q a.m. DEXMETHYLPHENIDATE HCL 42356992155 Active Checo Conklin MD Active MAGNESIUM CITRATE 1.745 GM/30ML ORAL SOLUTION 150ml po BID P RN Constipation MAGNESIUM CITRATE 16177760426 No Longer Active Checo Conklin MD Active BACTROBAN 2 % EXTERNAL CREAM Apply to affected area BID for up to 10 days MUPIROCIN CALCIUM 76305056105 No Longer Active Checo Conklin MD Active HYDROCODONE-ACETAMINOPHEN 5-325 MG ORAL TABLET 1 tab b y mouth every 6 hours as needed HYDROCODONE-ACETAMINOPHEN 98137276138 No Longer Active Checo Conklin MD Active IBUPROFEN 800 MG ORAL TABLET 1 tab every 8 hours with food 03/20 IBUPROFEN 96201751601 No Longer Active Checo Conklin MD Active DIFLUCAN 150 MG ORAL TABLET 1 tablet by mouth if neede d, hold until symptoms start FLUCONAZOLE 47710623062 No Longer Active Checo Conklin MD Active BACTRIM DS 800-160 MG ORAL TABLET 1 tab by mouth twice daily 201 11/23/03 TRIMETHOPRIM-SULFAMETHOXAZOLE 47342403064 No Longer Active K bernice Méndez LPN Active HYDROCODONE-ACETAMINOPHEN 5-325 MG ORAL TABLET 0.5 to 1 tab by mouth every 6 hours as needed HYDROCODONE-ACETAMINOPHEN 22160683546 No Longer Active Checo Conklin MD Active ONDANSETRON 8 MG ORAL TABLET DISINTEGRATING place one tablet on tongue and allow to dissolve every 6 hours as needed for vomitting ONDANSETRON 03719401314 No Longer Active Checo Conklin MD Activ e COMPRO 25 MG RECTAL SUPPOSITORY insert or apply one garza ppository rectally as directed every 12 hours as needed for nausea PROCHLORPERAZINE 22282257668 No Longer Active Checo Conklin MD A ctive SUMATRIPTAN SUCCINATE 100 MG ORAL TABLET Take one PRN for migran e SUMATRIPTAN SUCCINATE 64934018863 No Longer Active Checo Conklin MD Active TRAVEL SICKNESS 25 MG ORAL TABLET CHEWABLE chew and sw allow one tablet every 6 hours as needed MECLIZINE HCL 44738077821 No Longer A ctive Checo Conklin MD Active BUPROPION HCL ER (SR) 100 MG ORAL TABLET EXTENDED RELE ASE 12 HOUR take one tablet by mouth one time daily for one week then take 1 two times daily BUPROPION HCL 59963020114 No Longer Active Checo gallagher MD Active TERBINAFINE HCL 250 MG ORAL TABLET take one table PO one time da moises TERBINAFINE HCL 61192277031 No Longer Active Checo Conklin MD Active METOCLOPRAMIDE HCL 10 MG ORAL TABLET take one PO tid PRN nausea METOCLOPRAMIDE HCL 76493676635 No Longer Active Checo Conklin MD Active DICLOFENAC SODIUM 75 MG ORAL TABLET DELAYED RELEASE 1 tablet by mouth twice daily PRN Knee pain DICLOFENAC SODIUM 86625900097 No Longer Active Checo Conklin MD Active LAMISIL 250 MG ORAL TABLET 1 po qd TERBINAFI NE HCL 16380058604 No Longer Active Checo Conklin MD Active REGLAN 10 MG ORAL TABLET 1 po TID PRN Nausea 3 METOCLOPRAMIDE HCL 50613368311 No Longer Active Checo Conklin MD Active CELEXA 20 MG ORAL TABLET 1 tablet by mouth daily 09/26 CITALOPRAM HYDROBROMIDE 42685778720 No Longer Active Checo Conklin MD Active AZITHROMYCIN 250 MG ORAL TABLET 2 po qd x 1 day, then 1 po q d x 4 days AZITHROMYCIN 91830695644 No Longer Active Checo Ortiz MD Active HYDROCODONE-ACETAMINOPHEN 5-325 MG ORAL TABLET 1 po q 6hr PRN Pa in HYDROCODONE-ACETAMINOPHEN 80028690604 No Longer Active Lenora Conklin MD Active PHENAZOPYRIDINE HCL 200 MG ORAL TABLET take 1 tab po TID for bladder pain PHENAZOPYRIDINE HCL 41355305240 No Longer Active Joe Conklin MD Active CIPRO 500 MG ORAL TABLET 1 tablet by mouth twice daily CIPROFLOXACIN HCL 76245541539 No Longer Active Dangelo Rangel MD Active HYDROCODONE-ACETAMINOPHEN 5-325 MG ORAL TABLET 1/2 to 1 po q 4 hours prn cough HYDROCODONE-ACETAMINOPHEN 46176055703 No Longer Activ candy Rangel MD Active BACTRIM DS 800-160 MG ORAL TABLET 1 po BID x 7 days 29/04/10 SULFAMETHOXAZOLE-TRIMETHOPRIM 73961278949 No Longer Active Checo Conklin MD Active PREDNISONE 20 MG ORAL TABLET 2 tabs daily for 3 days, 1 tab daily for 3 days, 1/2 tab daily for 2 days PREDNISONE 02736644879 No Longer Active Checo Conklin MD Active TRIAMCINOLONE ACETONIDE 0.1 % EXTERNAL OINTMENT Apply to affected areas TID for up to 2 weeks TRIAMCINOLONE ACETONIDE 83569775081 No Longer Active Checo Conklin MD Active CEFDINIR 300 MG ORAL CAPSULE by mouth twice a day 2013 CEFDINIR 04501203143 No Longer Active Dangelo Rangel MD Acti ve BUPROPION HCL ER (SMOKING DET) 150 MG ORAL TABLET EXTE NDED RELEASE 12 HOUR 1 a day for 1 week then 1 twice a day BUPROPION HCL (SMOKING DETER) 59622154236 No Longer Active Checo Conklin MD Active SIMVASTATIN 20 MG ORAL TABLET 1 po qd SIMVASTAT IN 26791657141 Active Checo Conklin MD Active CHANTIX STARTING MONTH KARTHIK 0.5 MG X 11 & 1 MG X 42 ORA L TABLET 0.5mg daily for 3 days, then 0.5mg BID for 4 days, then 1mg BID VARENICLINE TARTRATE 81034821851 No Longer Active Checo Conklin MD Activ e XANAX 0.5 MG ORAL TABLET 1 po BID PRN anxiety A LPRAZOLAM 70535192260 Active Checo Conklin MD Active CONCERTA 18 MG ORAL TABLET EXTENDED RELEASE 1 po q a.m. METHYLPHENIDATE HCL 58711150911 No Longer Active Checo Conklin MD Active AMBIEN 5 MG ORAL TABLET 1 po qHS PRN Insomnia Z OLPIDEM TARTRATE 15969822704 Active Checo Conklin MD Active TRAZODONE HCL 100 MG ORAL TABLET 0.5 to 1 po qHS PRN Insomnia 20 30/07/08 TRAZODONE HCL 98481092181 No Longer Active Checo Conklin MD Active FIORICET 325-50-40 MG TAB 1 tablet by mouth four times daily as needed [id number] 52066791315 No Longer Active Checo Conklin MD Active PHENERGAN CREAM* 25mg applied to wrist q6hr PRN Nausea PHENERGAN CREAM* No Longer Active Checo Conklin MD A ctive FLONASE 50 MCG/ACT NASAL SUSPENSION 1 spray each nostril am and hs FLUTICASONE PROPIONATE 50347431056 No Longer Active Checo Conklin MD Active ANTIPYRINE-BENZOCAINE 5.4-1.4 % OTIC SOLUTION 1-2 drops in affec yohannes ear BENZOCAINE-ANTIPYRINE 96968828305 No Longer Active Checo Conklin MD Active CEFDINIR 300 MG ORAL CAPSULE 1 po bid CEFDINIR 28757090736 No Longer Active Checo Conklin MD Active PREDNISONE 20 MG ORAL TABLET 2 tabs daily for 3 days, 1 tab daily for 3 days, 1/2 tab daily for 2 days PREDNISONE 18914724198 No Longer Active Checo Conklin MD Active AZITHROMYCIN 250 MG ORAL TABLET 2 po qd x 1 day, then 1 po q d x 4 days AZITHROMYCIN 24119289792 No Longer Active Checo Ortiz MD Active PREDNISONE 20 MG ORAL TABLET 2 tabs daily for 3 days, 1 tab daily for 3 days, 1/2 tab daily for 2 days PREDNISONE 62017555079 No Longer Active Checo Conklin MD Active ZITHROMAX Z-KARTHIK 250 MG ORAL TABLET 2 today, then 1 daily for 4 d ays AZITHROMYCIN 60876457882 No Longer Active Paul Hamlin MD Active FOCALIN XR 10 MG ORAL CAPSULE EXTENDED RELEASE 24 HOUR 1 po q a. m. DEXMETHYLPHENIDATE HCL 03554954176 No Longer Active Paul Hamlin MD Active PERCOCET 10-325 MG ORAL TABLET 1 tablet every 6 hours as needed for pain OXYCODONE-ACETAMINOPHEN 05793305904 No Longer Active Paul Hamlin MD Active LORTAB 5-500 MG ORAL TABLET 1/2 to 1 tablet by mouth e very 4 hours as needed for pain HYDROCODONE-ACETAMINOPHEN 03244043539 No Longer Active Checo Conklin MD Active FOCALIN XR 15 MG ORAL CAPSULE EXTENDED RELEASE 24 HOUR 1 po q a. m. DEXMETHYLPHENIDATE HCL 11095710890 No Longer Active Checo Conklin MD Active ZOFRAN ODT 4 MG ORAL TABLET DISINTEGRATING 1 po q6hr PRN Nausea ONDANSETRON 54078847586 No Longer Active Checo Conklin MD Active PERCOCET 5-325 MG ORAL TABLET 1 tablet by mouth every 6 hour s as needed OXYCODONE-ACETAMINOPHEN 26686170376 No Longer Active Checo Conklin MD Active PYRIDIUM 200 MG ORAL TABLET take 1 tab po TID prn urinary pain. PHENAZOPYRIDINE HCL 03112743572 No Longer Active Checo Joshua Active FLUCONAZOLE 150 MG ORAL TABLET take 1 tab po qday once FLUCONAZOLE 19420727618 No Longer Active Dangelo Rangel MD Acti ve CIPRO 500 MG ORAL TABLET 1 tablet by mouth twice daily CIPROFLOXACIN HCL 95864410109 No Longer Active Dangelo Rangel MD Active PYRIDIUM 200 MG ORAL TABLET take 1 tab po TID prn urinary pain. PYRIDIUM 200 MG ORAL TABLET 2737518 PHENAZOPYRIDINE HCL Inactive PERCOCET 5-325 MG ORAL TABLET 1 tablet by mouth every 6 hour s as needed PERCOCET 5-325 MG ORAL TABLET 9893355 OXYCODONE-ACETAMINOPHEN Inactive ZOFRAN ODT 4 MG ORAL TABLET DISINTEGRATING 1 po q6hr PRN Nausea ZOFRAN ODT 4 MG ORAL TABLET DISINTEGRATING 078165 ONDAN SETRON Inactive FOCALIN XR 15 MG [...] for pain PERCOCET 10-325 MG ORAL TABLET 0519676 OXYCODONE-ACETAMI NOPHEN Inactive FOCALIN XR 10 MG ORAL CAPSULE EXTENDED RELEASE 24 HOUR 1 po q a. m. FOCALIN XR 10 MG ORAL CAPSULE EXTENDED RELEASE 24 HOUR DEXMETHYLPHENIDATE HCL Inactive CEFDINIR 300 MG ORAL CAPSULE 1 po bid CEFDINI R 300 MG ORAL CAPSULE 067099 CEFDINIR Inactive ANTIPYRINE-BENZOCAINE 5.4-1.4 % OTIC SOLUTION 1-2 drops in affec yohannes ear ANTIPYRINE-BENZOCAINE 5.4-1.4 % OTIC SOLUTION BENZOCAINE-ANTIPYRINE Inactive FLONASE 50 MCG/ACT NASAL SUSPENSION 1 spray each nostril am and hs FLONASE 50 MCG/ACT NASAL SUSPENSION 5144409 FLUTICASONE PROPIONATE I nactive PHENERGAN CREAM* 25mg applied to wrist q6hr PRN Nausea PHENERGAN CREAM* Inactive FIORICET 325-50-40 MG TAB 1 tablet by mouth four times daily as needed FIORICET 325-50-40 MG TAB ACETAMINOPHEN-C AFF-BUTALBITAL Inactive TRAZODONE HCL 100 MG ORAL TABLET 0.5 to 1 po qHS PRN Insomnia 20 30/07/08 TRAZODONE HCL 100 MG ORAL TABLET 835359 TRAZODONE HCL Inactive CONCERTA 18 MG ORAL [...] cough HYDROCODONE-ACETAMINOPHEN 5-325 MG ORAL TABLET 8 51932 HYDROCODONE-ACETAMINOPHEN Inactive PHENAZOPYRIDINE HCL 200 MG ORAL TABLET take 1 tab po TID for bladder pain PHENAZOPYRIDINE HCL 200 MG ORAL TABLET 2647504 PHENAZOPYRIDINE HCL Inactive HYDROCODONE-ACETAMINOPHEN 5-325 MG ORAL TABLET 1 po q 6hr PRN Pa in HYDROCODONE-ACETAMINOPHEN 5-325 MG ORAL TABLET 565415 HYDROCODONE-ACETAMINOPHEN Inactive CELEXA 20 MG ORAL TABLET 1 tablet by mouth daily 09/26 CELEXA 20 MG ORAL TABLET 824031 CITALOPRAM HYDROBROMIDE Inactive REGLAN 10 MG ORAL TABLET 1 po TID PRN Nausea 3 REGLAN 10 MG ORAL TABLET 564135 METOCLOPRAMIDE HCL Inactive LAMISIL 250 MG ORAL TABLET 1 po qd L AMISIL 250 MG ORAL TABLET 153770 TERBINAFINE HCL Inactive DICLOFENAC SODIUM 75 MG ORAL TABLET DELAYED RELEASE 1 tablet by mouth twice daily PRN Knee pain DICLOFENAC SODIUM 75 MG ORAL TABLET DELAYED RELEASE 871985 DICLOFENAC SODIUM Inactive METOCLOPRAMIDE HCL 10 MG ORAL TABLET take one PO tid PRN nausea METOCLOPRAMIDE HCL 10 MG ORAL TABLET 807544 METOCLOPRAM ZACH HCL Inactive TERBINAFINE HCL 250 MG ORAL TABLET take one table PO one time da moises TERBINAFINE HCL 250 MG ORAL TABLET 369302 TERBINAFINE H CL Inactive BUPROPION HCL ER [...] SICKNESS 25 M G ORAL TABLET CHEWABLE 984914 MECLIZINE HCL Inactive SUMATRIPTAN SUCCINATE 100 MG ORAL TABLET Take one PRN for migran e SUMATRIPTAN SUCCINATE 100 MG ORAL TABLET 506219 SUMATRIPTAN SUCCINATE Inactive COMPRO 25 MG RECTAL SUPPOSITORY insert or apply one garza ppository rectally as directed every 12 hours as needed for nausea COMPRO 25 MG RECTAL SUPPOSITORY 193195 PROCHLORPERAZINE Inactive ONDANSETRON 8 MG ORAL TABLET DISINTEGRATING place one tablet on tongue and allow to dissolve every 6 hours as needed for vomitting ONDANSETRON 8 MG ORAL TABLET DISINTEGRATING 466342 ONDANSETRON Inactive HYDROCODONE-ACETAMINOPHEN 5-325 MG ORAL TABLET 0.5 to 1 tab by mouth every 6 hours as needed HYDROCODONE-ACETAMIN OPHEN 5-325 MG ORAL TABLET 538228 HYDROCODONE-ACETAMINOPHEN Inactive BACTRIM DS 800-160 MG ORAL TABLET 1 tab by mouth twice daily 201 11/23/03 BACTRIM DS 800-160 MG ORAL TABLET 206593 TRIMETHOPRIM-SULFAMETHOXAZOLE Inactive DIFLUCAN 150 MG ORAL TABLET 1 tablet by mouth if neede d, hold until symptoms start DIFLUCAN 150 MG ORAL TABLET 217386 FLUCONAZ OLE Inactive IBUPROFEN 800 MG ORAL TABLET 1 tab every 8 hours with food 03/20 IBUPROFEN 800 MG ORAL TABLET 988645 IBUPROFEN Krupa ctive HYDROCODONE-ACETAMINOPHEN 5-325 MG ORAL TABLET 1 tab b y mouth every 6 hours as needed HYDROCODONE-ACETAMINOPHEN 5-325 MG ORAL TABLET 417428 HYDROCODONE-ACETAMINOPHEN Inactive BACTROBAN 2 % EXTERNAL CREAM Apply to affected area BID for up to 10 days BACTROBAN 2 % EXTERNAL CREAM 472218 MUPIROCIN CA LCIUM Inactive MAGNESIUM CITRATE 1.745 GM/30ML ORAL SOLUTION 150ml po BID P RN Constipation MAGNESIUM CITRATE 1.745 GM/30ML ORAL SOLUTION 10 55012 MAGNESIUM CITRATE Inactive DIFLUCAN 150 MG ORAL TABLET 1 tablet by mouth qod 2015 DIFLUCAN 150 MG ORAL TABLET 529155 FLUCONAZOLE Inactive BACTRIM DS 800-160 MG ORAL TABLET 1 tab by mouth twice daily 201 12/19/26 BACTRIM DS 800-160 MG ORAL TABLET 666196 TRIMETHOPRIM-SULFAMETHOXAZOLE Inactive CLARITIN 10 MG ORAL TABLET 1 tablet by mouth daily as needed for allergies CLARITIN 10 MG ORAL TABLET 790118 LORATADINE I nactive FLUTICASONE PROPIONATE 50 MCG/ACT NASAL SUSPENSION 2 s prays/nostril qd PRN Congestion/Allergies FLUTICASONE PROPION ATE 50 MCG/ACT NASAL SUSPENSION 1542585 FLUTICASONE PROPIONATE Inactive MIRALAX ORAL POWDER 8.5 to 17g po qd PRN Constipation MIRALAX ORAL POWDER 449538 POLYETHYLENE GLYCOL 3350 Inactive IBUPROFEN 800 MG ORAL TABLET 1 tab every 8 hours as needed for p ain IBUPROFEN 800 MG ORAL TABLET 250299 IBUPROFEN Krupa ctive HYDROCHLOROTHIAZIDE 12.5 MG ORAL CAPSULE 1 po qd PRN Edema 01/10 HYDROCHLOROTHIAZIDE 12.5 MG ORAL CAPSULE 662078 HYDROCH LOROTHIAZIDE Inactive CIPRO 500 MG ORAL TABLET 1 tablet by mouth twice daily CIPRO 500 MG ORAL TABLET 712840 CIPROFLOXACIN HCL Inactive FLUCONAZOLE 150 MG ORAL TABLET take 1 tab po qday once FLUCONAZOLE 150 MG ORAL TABLET 164090 FLUCONAZOLE Inactive ZITHROMAX Z-KARTHIK 250 MG ORAL TABLET 2 today, then 1 daily for 4 d ays ZITHROMAX Z-KARTHIK 250 MG ORAL TABLET 759902 AZITHROMYCIN Inactive PREDNISONE 20 MG ORAL TABLET 2 tabs daily for 3 days, 1 tab daily for 3 days, 1/2 tab daily for 2 days PREDNISONE 20 MG ORAL T ABLET 835854 PREDNISONE Inactive AZITHROMYCIN 250 MG ORAL TABLET 2 po qd x 1 day, then 1 po q d x 4 days AZITHROMYCIN 250 MG ORAL TABLET 855761 AZITHROMY SPARKLE Inactive PREDNISONE 20 MG ORAL TABLET 2 tabs daily for 3 days, 1 tab daily for 3 days, 1/2 tab daily for 2 days PREDNISONE 20 MG ORAL TABLET 262427 PREDNISONE Inactive CEFDINIR 300 MG ORAL CAPSULE by mouth twice a day 2013 CEFDINIR 300 MG ORAL CAPSULE 747995 CEFDINIR Inactive TRIAMCINOLONE ACETONIDE 0.1 % EXTERNAL OINTMENT Apply to affected areas TID for up to 2 weeks TRIAMCINOLONE ACETON ZACH 0.1 % EXTERNAL OINTMENT 9940678 TRIAMCINOLONE ACETONIDE Inactive PREDNISONE 20 MG ORAL TABLET 2 tabs daily for 3 days, 1 tab daily for 3 days, 1/2 tab daily for 2 days PREDNISONE 20 MG ORAL T ABLET 898324 PREDNISONE Inactive BACTRIM DS 800-160 MG ORAL TABLET 1 po BID x 7 days 29/04/10 BACTRIM DS 800-160 MG ORAL TABLET 490758 SULFAMETHOXAZOLE-TRIMETHOP RIM Inactive CIPRO 500 MG ORAL TABLET 1 tablet by mouth twice daily CIPRO 500 MG ORAL TABLET 361248 CIPROFLOXACIN HCL Inactive AZITHROMYCIN 250 MG ORAL TABLET 2 po qd x 1 day, then 1 po q d x 4 days AZITHROMYCIN 250 MG ORAL TABLET 634635 AZITHROMY SPARKLE Inactive FLAGYL 500 MG ORAL TABLET 1 tablet by mouth bid 04/13 FLAGYL 500 MG ORAL TABLET 576915 METRONIDAZOLE Inactive AZITHROMYCIN 250 MG ORAL TABLET 2 po qd x 1 day, then 1 po q d x 4 days AZITHROMYCIN 250 MG ORAL TABLET 073176 AZITHROMY SPARKLE Inactive AMOXICILLIN 500 MG ORAL CAPSULE 2 po BID x 10 days 201 01/15/27 AMOXICILLIN 500 MG ORAL CAPSULE 338150 AMOXICILLIN Inactive AMOXICILLIN 500 MG ORAL CAPSULE 2 po BID x 14 days for H. Pylori AMOXICILLIN 500 MG ORAL CAPSULE 395341 AMOXICILLIN Inactive CLARITHROMYCIN 500 MG ORAL TABLET 1 tab po BID x 14 days CLARITHROMYCIN 500 MG ORAL TABLET 303728 CLARITHROMYCIN Inacti ve FLAGYL 500 MG ORAL TABLET 1 tablet by mouth bid 08/29 FLAGYL 500 MG ORAL TABLET 159293 METRONIDAZOLE Inactive PROTONIX 40 MG ORAL TABLET DELAYED RELEASE 1 pill by m kayceeh daily, for acid reflux PROTONIX 40 MG ORAL TABLET DELAYED RELEAS E 889092 PANTOPRAZOLE SODIUM Inactive Immunizations Vaccine Administration Date [...] ... - Chemistry sodium, serum 138 mmol/L 996-477 3645/06/27 carbon dioxide, venous blood 30.3 mmol/L 21.0-32 [...] ... - Chemistry sodium, serum 139 mmol/L 912-628 5456/11/28 carbon dioxide, venous blood 26.0 mmol/L 21.0-32 [...] 5.0-8.5 Encounters Code Encounter Date Provider Facility CPT-17058 Level 3 Est. Patient 16:46:51 CDT Thomas reynolds DO [facility] CPT-98256 [id number] Vst-Est Level III 14:40:49 CDT Paul Hamlin MD [facility] CPT-31026 Level 4 Est. Patient 11:08:43 CDT Checo Conklin MD [facility]-15356 [id number] Vst-Est Level III 09:37:41 CDT Dangelo Rangel MD [facility] CPT-85839 Level 4 Est. Patient 08:57:51 LOGISTICS SPECIALIST Checo Conklin MD [facility] CPT-04299 Level 3 Est. Patient 11:24:55 LOGISTICS SPECIALIST Efren almendarez [facility] CPT-10403 Level 3 Est. Patient 13:05:44 CDT Paul Hamlin MD [facility] CPT-67384 Level 3 Est. Patient 11:29:55 CDT Checo Conklin MD [facility] CPT-80434 Level 4 Est. Patient 11:08:12 LOGISTICS SPECIALIST Checo Conklin MD [facility] CPT-39627 Level 4 Est. Patient 16:06:48 LOGISTICS SPECIALIST Checo Conklin MD [facility] CPT-11677 Level 3 Est. Patient 09:11:49 CDT Efren almendarez [facility]-84139 Level 2 Est. Patient 19:53:27 CDT Tanner hill MD [facility] CPT-39551 Level 3 Est. Patient 09:15:34 CDT Efren almendarez [facility]-22461 Level 3 Est. Patient 11:28:51 LOGISTICS SPECIALIST Efren almendarez APRN [facility] CPT-49862 Level 4 Est. Patient 13:55:46 LOGISTICS SPECIALIST Checo Conklin MD [facility] CPT-92175 Level 4 Est. Patient 17:10:53 CDT Checo Conklin MD [facility] CPT-31973 Level 3 Est. Patient 15:56:22 CDT Checo Conklin MD [facility] CPT-83632 Level 3 Est. Patient 15:29:07 CDT Checo Conklin MD [facility] CPT-36940 Level 3 Est. Patient 14:38:41 CDT Checo Conklin MD [facility] CPT-01730 Level 3 Est. Patient 15:22:03 LOGISTICS SPECIALIST Thomas reynolds DO [facility] CPT-10046 Level 3 Est. Patient 13:34:17 LOGISTICS SPECIALIST Checo Conklin MD [facility] CPT-17705 Level 3 Est. Patient 12:29:32 CDT Dangelo arroyo MD [facility] CPT-22034 Level 3 Est. Patient 16:53:02 CDT Checo Conklin MD [facility] CPT-36440 Level 3 Est. Patient 16:37:13 CDT Checo Conklin MD [facility] CPT-84181 Level 3 Est. Patient 16:16:59 CDT Paul Hamlin MD [facility] CPT-06760 Level 3 Est. Patient 14:20:13 CDT Dangelo arroyo MD [facility] CPT-71491 Level 4 Est. Patient 11:29:33 CDT Checo Conklin MD [facility] CPT-03690 Level 3 Est. Patient 17:08:31 CDT Checo Conklin MD [facility] CPT-84957 Level 3 Est. Patient 16:50:42 LOGISTICS SPECIALIST Checo Conklin MD [facility] CPT-57919 Level 4 Est. Patient 09:26:08 LOGISTICS SPECIALIST Checo Conklin MD [facility] CPT-59066 Level 3 Est. Patient 11:37:10 CDT Checo Conklin MD [facility] CPT-35035 Level 4 Est. Patient 14:07:38 CDT Checo Conklin MD [facility] CPT-25086 Level 3 Est. Patient 09:54:41 CDT Checo Conklin MD [facility] CPT-57801 Level 3 Est. Patient 11:10:54 CDT Paul Hamlin MD [facility] CPT-48230 Level 3 Est. Patient 14:16:56 LOGISTICS SPECIALIST Checo Conklin MD [facility] CPT-02423 Level 3 Est. Patient 11:04:11 LOGISTICS SPECIALIST Checo Conklin MD [facility] CPT-64701 Level 3 Est. Patient 17:09:26 CDT Dangelo arroyo MD [facility] CPT-29412 Level 3 Est. Patient 16:54:37 CDT Checo Conklin MD [facility] Procedures Code Procedure Name Date Entry Date Standard Desc ription CPT-40307 Abx/Therapy Injection 09:52:15 CDT CPT-15696 Abx/Therapy Injection 18:17:48 CDT CPT-J2550 Phenergan 25 mg (Promethazine) 16:48:23 CDT CPT-J1885 Toradol 60 mg 16:48:23 CDT CPT-12453 Wrist, right, comp 3V - XRAY USE ONLY 09:24:31 CDT CPT-90484 Abd compl w upright - XRAY USE ONLY 1 1:36:54 LOGISTICS SPECIALIST CPT-05704 UA w micro - LAB USE ONLY 17:06:46 CDT 2015 CPT-14289 BHCG Qual - LAB USE ONLY 17:06:46 CDT 05/06 CPT-57509 CMP - LAB USE ONLY 17:06:46 CDT CPT-07565 CBC with Diff - LAB USE ONLY 17:06:45 CDT 2 CPT-53705 Venipuncture Draw Fee 17:06:45 CDT CPT-LR Lesion Removal 19:53:27 CDT CPT-OV Office Visit 11:31:28 CDT CPT-12049 Tubersol 09:39:29 CDT CPT-J2550 Phenergan 25 mg (Promethazine) 13:59:02 LOGISTICS SPECIALIST CPT-J1885 Toradol 60 mg (Ketorolac) 13:59:02 LOGISTICS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
--- OUTSIDE RECORDS SUMMARY | 2019-09-29 01:18 | XMS REPORT | Clinical Summary ---
Author Author Admin, Bethany Gonzales Organization [employer] Address Unknown Phone Unavailable Allergies, Adverse Reactions, [...] MD Abdominal pain, generalized ICD-789.07 Inactive Checo Conlkin MD Urinary frequency ICD-788.41 Inactive Checo Conklin [...] RELEASE 1 daily with furosemide POTASSIUM CHLORIDE 38930861708 Active Paul Hamlin MD Active FUROSEMIDE 20 MG ORAL TABLET 1 daily for swelling FUROSEMIDE 56325716080 Active Paul Hamlin MD Active HYDROCHLOROTHIAZIDE 12.5 MG ORAL CAPSULE 1 po qd PRN Edema 01/10 HYDROCHLOROTHIAZIDE 76009764288 No Longer Active Paul Hamlin MD Active IBUPROFEN 800 MG ORAL TABLET 1 tab every 8 hours as needed for p ain IBUPROFEN 15584666598 No Longer Active Paul Hamlin MD Active PAROXETINE HCL 40 MG ORAL TABLET 1 po qd PAR OXETINE HCL 48493635406 Active Checo Conklin MD Active MIRALAX ORAL POWDER 8.5 to 17g po qd PRN Constipation POLYETHYLENE GLYCOL 3350 44155675757 No Longer Active Checo Conklin MD Active PROTONIX 40 MG ORAL TABLET DELAYED RELEASE 1 pill by m outh daily, for acid reflux PANTOPRAZOLE SODIUM 37731592111 No Longer Activ e Corry Méndez LPN Active FLAGYL 500 MG ORAL TABLET 1 tablet by mouth bid 08/29 METRONIDAZOLE 16949705398 No Longer Active Corry Méndez LPN Active CLARITHROMYCIN 500 MG ORAL TABLET 1 tab po BID x 14 days CLARITHROMYCIN 78325646544 No Longer Active Corry Méndez LPN Active AMOXICILLIN 500 MG ORAL CAPSULE 2 po BID x 14 days for H. Pylori AMOXICILLIN 03258457493 No Longer Active Corry Méndez LPN Active FLUTICASONE PROPIONATE 50 MCG/ACT NASAL SUSPENSION 2 s prays/nostril qd PRN Congestion/Allergies FLUTICASONE PROPIONATE 4840654858 9 No Longer Active Checo Conklin MD Active AMOXICILLIN 500 MG ORAL CAPSULE 2 po BID x 10 days 201 01/15/27 AMOXICILLIN 94804732057 No Longer Active Checo Conklin MD Activ e CLARITIN 10 MG ORAL TABLET 1 tablet by mouth daily as needed for allergies LORATADINE 82549504730 No Longer Active Checo Ortiz MD Active BACTRIM DS 800-160 MG ORAL TABLET 1 tab by mouth twice daily 201 12/19/26 TRIMETHOPRIM-SULFAMETHOXAZOLE 33338959641 No Longer Active Ragini Carrillo MD Active DIFLUCAN 150 MG ORAL TABLET 1 tablet by mouth qod 2015 FLUCONAZOLE 45696493625 No Longer Active Efren Medel MIXING AND MOLDING MACHINE OPERATOR Act mike AZITHROMYCIN 250 MG ORAL TABLET 2 po qd x 1 day, then 1 po q d x 4 days AZITHROMYCIN 41603686662 No Longer Active Efren flores MIXING AND MOLDING MACHINE OPERATOR Active FLAGYL 500 MG ORAL TABLET 1 tablet by mouth bid 04/13 METRONIDAZOLE 06907386569 No Longer Active Checo Conklin MD Acti ve FOCALIN XR 10 MG ORAL CAPSULE EXTENDED RELEASE 24 HOUR 1 po q a.m. DEXMETHYLPHENIDATE HCL 06788501769 Active Checo Conklin MD Active MAGNESIUM CITRATE 1.745 GM/30ML ORAL SOLUTION 150ml po BID P RN Constipation MAGNESIUM CITRATE 56072366809 No Longer Active Checo Conklin MD Active BACTROBAN 2 % EXTERNAL CREAM Apply to affected area BID for up to 10 days MUPIROCIN CALCIUM 18202924694 No Longer Active Checo Conklin MD Active HYDROCODONE-ACETAMINOPHEN 5-325 MG ORAL TABLET 1 tab b y mouth every 6 hours as needed HYDROCODONE-ACETAMINOPHEN 03335942450 No Longer Active Checo Conklin MD Active IBUPROFEN 800 MG ORAL TABLET 1 tab every 8 hours with food 03/20 IBUPROFEN 46142278812 No Longer Active Checo Conklin MD Active DIFLUCAN 150 MG ORAL TABLET 1 tablet by mouth if neede d, hold until symptoms start FLUCONAZOLE 12987306309 No Longer Active Checo Conklin MD Active BACTRIM DS 800-160 MG ORAL TABLET 1 tab by mouth twice daily 201 11/23/03 TRIMETHOPRIM-SULFAMETHOXAZOLE 14845354834 No Longer Active K bernice Méndez LPN Active HYDROCODONE-ACETAMINOPHEN 5-325 MG ORAL TABLET 0.5 to 1 tab by mouth every 6 hours as needed HYDROCODONE-ACETAMINOPHEN 59696080186 No Longer Active Checo Conklin MD Active ONDANSETRON 8 MG ORAL TABLET DISINTEGRATING place one tablet on tongue and allow to dissolve every 6 hours as needed for vomitting ONDANSETRON 24987006146 No Longer Active Checo Conklin MD Activ e COMPRO 25 MG RECTAL SUPPOSITORY insert or apply one garza ppository rectally as directed every 12 hours as needed for nausea PROCHLORPERAZINE 15895112966 No Longer Active Checo Conklin MD A ctive SUMATRIPTAN SUCCINATE 100 MG ORAL TABLET Take one PRN for migran e SUMATRIPTAN SUCCINATE 29716066613 No Longer Active Checo Conklin MD Active TRAVEL SICKNESS 25 MG ORAL TABLET CHEWABLE chew and sw allow one tablet every 6 hours as needed MECLIZINE HCL 64152031081 No Longer A ctive Checo Conklin MD Active BUPROPION HCL ER (SR) 100 MG ORAL TABLET EXTENDED RELE ASE 12 HOUR take one tablet by mouth one time daily for one week then take 1 two times daily BUPROPION HCL 65871768326 No Longer Active Checo gallagher MD Active TERBINAFINE HCL 250 MG ORAL TABLET take one table PO one time da moises TERBINAFINE HCL 94837732701 No Longer Active Checo Conklin MD Active METOCLOPRAMIDE HCL 10 MG ORAL TABLET take one PO tid PRN nausea METOCLOPRAMIDE HCL 38569705857 No Longer Active Checo Conklin MD Active DICLOFENAC SODIUM 75 MG ORAL TABLET DELAYED RELEASE 1 tablet by mouth twice daily PRN Knee pain DICLOFENAC SODIUM 73643685631 No Longer Active Checo Conklin MD Active LAMISIL 250 MG ORAL TABLET 1 po qd TERBINAFI NE HCL 35308202847 No Longer Active Checo Conklin MD Active REGLAN 10 MG ORAL TABLET 1 po TID PRN Nausea 3 METOCLOPRAMIDE HCL 08332787156 No Longer Active Checo Conklin MD Active CELEXA 20 MG ORAL TABLET 1 tablet by mouth daily 09/26 CITALOPRAM HYDROBROMIDE 46423574097 No Longer Active Checo Conklin MD Active AZITHROMYCIN 250 MG ORAL TABLET 2 po qd x 1 day, then 1 po q d x 4 days AZITHROMYCIN 61860078031 No Longer Active Checo Ortiz MD Active HYDROCODONE-ACETAMINOPHEN 5-325 MG ORAL TABLET 1 po q 6hr PRN Pa in HYDROCODONE-ACETAMINOPHEN 00942981197 No Longer Active Lenora Conklin MD Active PHENAZOPYRIDINE HCL 200 MG ORAL TABLET take 1 tab po TID for bladder pain PHENAZOPYRIDINE HCL 21939295747 No Longer Active Joe Conklin MD Active CIPRO 500 MG ORAL TABLET 1 tablet by mouth twice daily CIPROFLOXACIN HCL 58264907022 No Longer Active Dangelo Rangel MD Active HYDROCODONE-ACETAMINOPHEN 5-325 MG ORAL TABLET 1/2 to 1 po q 4 hours prn cough HYDROCODONE-ACETAMINOPHEN 67650762970 No Longer Activ candy Rangel MD Active BACTRIM DS 800-160 MG ORAL TABLET 1 po BID x 7 days 29/04/10 SULFAMETHOXAZOLE-TRIMETHOPRIM 93038420790 No Longer Active Checo Conklin MD Active PREDNISONE 20 MG ORAL TABLET 2 tabs daily for 3 days, 1 tab daily for 3 days, 1/2 tab daily for 2 days PREDNISONE 99972287437 No Longer Active Checo Conklin MD Active TRIAMCINOLONE ACETONIDE 0.1 % EXTERNAL OINTMENT Apply to affected areas TID for up to 2 weeks TRIAMCINOLONE ACETONIDE 58218966350 No Longer Active Checo Conklin MD Active CEFDINIR 300 MG ORAL CAPSULE by mouth twice a day 2013 CEFDINIR 63914181124 No Longer Active Dangelo Rangel MD Acti ve BUPROPION HCL ER (SMOKING DET) 150 MG ORAL TABLET EXTE NDED RELEASE 12 HOUR 1 a day for 1 week then 1 twice a day BUPROPION HCL (SMOKING DETER) 76228746307 No Longer Active Checo Conklin MD Active SIMVASTATIN 20 MG ORAL TABLET 1 po qd SIMVASTAT IN 53613169264 Active Checo Conklin MD Active CHANTIX STARTING MONTH KARTHIK 0.5 MG X 11 & 1 MG X 42 ORA L TABLET 0.5mg daily for 3 days, then 0.5mg BID for 4 days, then 1mg BID VARENICLINE TARTRATE 98009072944 No Longer Active Checo Conklin MD Activ e XANAX 0.5 MG ORAL TABLET 1 po BID PRN anxiety A LPRAZOLAM 40369556405 Active Checo Conklin MD Active CONCERTA 18 MG ORAL TABLET EXTENDED RELEASE 1 po q a.m. METHYLPHENIDATE HCL 13299847789 No Longer Active Checo Conklin MD Active AMBIEN 5 MG ORAL TABLET 1 po qHS PRN Insomnia Z OLPIDEM TARTRATE 71132463407 Active Checo Conklin MD Active TRAZODONE HCL 100 MG ORAL TABLET 0.5 to 1 po qHS PRN Insomnia 20 30/07/08 TRAZODONE HCL 33428621917 No Longer Active Checo Conklin MD Active FIORICET 325-50-40 MG TAB 1 tablet by mouth four times daily as needed HKEOTIHKKAYLX-RCLY-MILPWAPQIM 30852286569 No Longer Active Checo Conklin MD Active PHENERGAN CREAM* 25mg applied to wrist q6hr PRN Nausea PHENERGAN CREAM* No Longer Active Checo Conklin MD A ctive FLONASE 50 MCG/ACT NASAL SUSPENSION 1 spray each nostril am and hs FLUTICASONE PROPIONATE 22614652851 No Longer Active Checo Conklin MD Active ANTIPYRINE-BENZOCAINE 5.4-1.4 % OTIC SOLUTION 1-2 drops in affec yohannes ear BENZOCAINE-ANTIPYRINE 39042488956 No Longer Active Checo Conklin MD Active CEFDINIR 300 MG ORAL CAPSULE 1 po bid CEFDINIR 71378873449 No Longer Active Checo Conklin MD Active PREDNISONE 20 MG ORAL TABLET 2 tabs daily for 3 days, 1 tab daily for 3 days, 1/2 tab daily for 2 days PREDNISONE 21938301044 No Longer Active Checo Conklin MD Active AZITHROMYCIN 250 MG ORAL TABLET 2 po qd x 1 day, then 1 po q d x 4 days AZITHROMYCIN 32753638611 No Longer Active Checo Ortiz MD Active PREDNISONE 20 MG ORAL TABLET 2 tabs daily for 3 days, 1 tab daily for 3 days, 1/2 tab daily for 2 days PREDNISONE 70026889190 No Longer Active Checo Conklin MD Active ZITHROMAX Z-KARTHIK 250 MG ORAL TABLET 2 today, then 1 daily for 4 d ays AZITHROMYCIN 60514340606 No Longer Active Paul Hamlin MD Active FOCALIN XR 10 MG ORAL CAPSULE EXTENDED RELEASE 24 HOUR 1 po q a. m. DEXMETHYLPHENIDATE HCL 28423292121 No Longer Active Paul Hamlin MD Active PERCOCET 10-325 MG ORAL TABLET 1 tablet every 6 hours as needed for pain OXYCODONE-ACETAMINOPHEN 95077234045 No Longer Active Paul Hamlin MD Active LORTAB 5-500 MG ORAL TABLET 1/2 to 1 tablet by mouth e very 4 hours as needed for pain HYDROCODONE-ACETAMINOPHEN 63641238419 No Longer Active Checo Conklin MD Active FOCALIN XR 15 MG ORAL CAPSULE EXTENDED RELEASE 24 HOUR 1 po q a. m. DEXMETHYLPHENIDATE HCL 67339565951 No Longer Active Checo Conklin MD Active ZOFRAN ODT 4 MG ORAL TABLET DISINTEGRATING 1 po q6hr PRN Nausea ONDANSETRON 02661379687 No Longer Active Checo Conklin MD Active PERCOCET 5-325 MG ORAL TABLET 1 tablet by mouth every 6 hour s as needed OXYCODONE-ACETAMINOPHEN 66358292532 No Longer Active Checo Conklin MD Active PYRIDIUM 200 MG ORAL TABLET take 1 tab po TID prn urinary pain. PHENAZOPYRIDINE HCL 27550491557 No Longer Active Checo Joshua Active FLUCONAZOLE 150 MG ORAL TABLET take 1 tab po qday once FLUCONAZOLE 93214017097 No Longer Active Dangelo Rangel MD Acti ve CIPRO 500 MG ORAL TABLET 1 tablet by mouth twice daily CIPROFLOXACIN HCL 90355078712 No Longer Active Dangelo Rangel MD Active PYRIDIUM 200 MG ORAL TABLET take 1 tab po TID prn urinary pain. PYRIDIUM 200 MG ORAL TABLET 5303229 PHENAZOPYRIDINE HCL Inactive PERCOCET 5-325 MG ORAL TABLET 1 tablet by mouth every 6 hour s as needed PERCOCET 5-325 MG ORAL TABLET 8658850 OXYCODONE-ACETAMINOPHEN Inactive ZOFRAN ODT 4 MG ORAL TABLET DISINTEGRATING 1 po q6hr PRN Nausea ZOFRAN ODT 4 MG ORAL TABLET DISINTEGRATING 795770 ONDAN SETRON Inactive FOCALIN XR 15 MG [...] for pain PERCOCET 10-325 MG ORAL TABLET 9314859 OXYCODONE-ACETAMI NOPHEN Inactive FOCALIN XR 10 MG ORAL CAPSULE EXTENDED RELEASE 24 HOUR 1 po q a. m. FOCALIN XR 10 MG ORAL CAPSULE EXTENDED RELEASE 24 HOUR DEXMETHYLPHENIDATE HCL Inactive CEFDINIR 300 MG ORAL CAPSULE 1 po bid CEFDINI R 300 MG ORAL CAPSULE 028994 CEFDINIR Inactive ANTIPYRINE-BENZOCAINE 5.4-1.4 % OTIC SOLUTION 1-2 drops in affec yohannes ear ANTIPYRINE-BENZOCAINE 5.4-1.4 % OTIC SOLUTION BENZOCAINE-ANTIPYRINE Inactive FLONASE 50 MCG/ACT NASAL SUSPENSION 1 spray each nostril am and hs FLONASE 50 MCG/ACT NASAL SUSPENSION 4864685 FLUTICASONE PROPIONATE I nactive PHENERGAN CREAM* 25mg applied to wrist q6hr PRN Nausea PHENERGAN CREAM* Inactive FIORICET 325-50-40 MG TAB 1 tablet by mouth four times daily as needed FIORICET 325-50-40 MG TAB ACETAMINOPHEN-C AFF-BUTALBITAL Inactive TRAZODONE HCL 100 MG ORAL TABLET 0.5 to 1 po qHS PRN Insomnia 20 30/07/08 TRAZODONE HCL 100 MG ORAL TABLET 460473 TRAZODONE HCL Inactive CONCERTA 18 MG ORAL [...] cough HYDROCODONE-ACETAMINOPHEN 5-325 MG ORAL TABLET 8 43832 HYDROCODONE-ACETAMINOPHEN Inactive PHENAZOPYRIDINE HCL 200 MG ORAL TABLET take 1 tab po TID for bladder pain PHENAZOPYRIDINE HCL 200 MG ORAL TABLET 1354108 PHENAZOPYRIDINE HCL Inactive HYDROCODONE-ACETAMINOPHEN 5-325 MG ORAL TABLET 1 po q 6hr PRN Pa in HYDROCODONE-ACETAMINOPHEN 5-325 MG ORAL TABLET 342568 HYDROCODONE-ACETAMINOPHEN Inactive CELEXA 20 MG ORAL TABLET 1 tablet by mouth daily 09/26 CELEXA 20 MG ORAL TABLET 511512 CITALOPRAM HYDROBROMIDE Inactive REGLAN 10 MG ORAL TABLET 1 po TID PRN Nausea 3 REGLAN 10 MG ORAL TABLET 394701 METOCLOPRAMIDE HCL Inactive LAMISIL 250 MG ORAL TABLET 1 po qd L AMISIL 250 MG ORAL TABLET 509625 TERBINAFINE HCL Inactive DICLOFENAC SODIUM 75 MG ORAL TABLET DELAYED RELEASE 1 tablet by mouth twice daily PRN Knee pain DICLOFENAC SODIUM 75 MG ORAL TABLET DELAYED RELEASE 994445 DICLOFENAC SODIUM Inactive METOCLOPRAMIDE HCL 10 MG ORAL TABLET take one PO tid PRN nausea METOCLOPRAMIDE HCL 10 MG ORAL TABLET 363266 METOCLOPRAM ZACH HCL Inactive TERBINAFINE HCL 250 MG ORAL TABLET take one table PO one time da moises TERBINAFINE HCL 250 MG ORAL TABLET 051273 TERBINAFINE H CL Inactive BUPROPION HCL ER [...] SICKNESS 25 M G ORAL TABLET CHEWABLE 000349 MECLIZINE HCL Inactive SUMATRIPTAN SUCCINATE 100 MG ORAL TABLET Take one PRN for migran e SUMATRIPTAN SUCCINATE 100 MG ORAL TABLET 782624 SUMATRIPTAN SUCCINATE Inactive COMPRO 25 MG RECTAL SUPPOSITORY insert or apply one garza ppository rectally as directed every 12 hours as needed for nausea COMPRO 25 MG RECTAL SUPPOSITORY 185280 PROCHLORPERAZINE Inactive ONDANSETRON 8 MG ORAL TABLET DISINTEGRATING place one tablet on tongue and allow to dissolve every 6 hours as needed for vomitting ONDANSETRON 8 MG ORAL TABLET DISINTEGRATING 158902 ONDANSETRON Inactive HYDROCODONE-ACETAMINOPHEN 5-325 MG ORAL TABLET 0.5 to 1 tab by mouth every 6 hours as needed HYDROCODONE-ACETAMIN OPHEN 5-325 MG ORAL TABLET 917381 HYDROCODONE-ACETAMINOPHEN Inactive BACTRIM DS 800-160 MG ORAL TABLET 1 tab by mouth twice daily 201 11/23/03 BACTRIM DS 800-160 MG ORAL TABLET 159481 TRIMETHOPRIM-SULFAMETHOXAZOLE Inactive DIFLUCAN 150 MG ORAL TABLET 1 tablet by mouth if neede d, hold until symptoms start DIFLUCAN 150 MG ORAL TABLET 007154 FLUCONAZ OLE Inactive IBUPROFEN 800 MG ORAL TABLET 1 tab every 8 hours with food 03/20 IBUPROFEN 800 MG ORAL TABLET 581008 IBUPROFEN Krupa ctive HYDROCODONE-ACETAMINOPHEN 5-325 MG ORAL TABLET 1 tab b y mouth every 6 hours as needed HYDROCODONE-ACETAMINOPHEN 5-325 MG ORAL TABLET 412940 HYDROCODONE-ACETAMINOPHEN Inactive BACTROBAN 2 % EXTERNAL CREAM Apply to affected area BID for up to 10 days BACTROBAN 2 % EXTERNAL CREAM 305014 MUPIROCIN CA LCIUM Inactive MAGNESIUM CITRATE 1.745 GM/30ML ORAL SOLUTION 150ml po BID P RN Constipation MAGNESIUM CITRATE 1.745 GM/30ML ORAL SOLUTION 10 64148 MAGNESIUM CITRATE Inactive DIFLUCAN 150 MG ORAL TABLET 1 tablet by mouth qod 2015 DIFLUCAN 150 MG ORAL TABLET 024930 FLUCONAZOLE Inactive BACTRIM DS 800-160 MG ORAL TABLET 1 tab by mouth twice daily 201 12/19/26 BACTRIM DS 800-160 MG ORAL TABLET 788855 TRIMETHOPRIM-SULFAMETHOXAZOLE Inactive CLARITIN 10 MG ORAL TABLET 1 tablet by mouth daily as needed for allergies CLARITIN 10 MG ORAL TABLET 036913 LORATADINE I nactive FLUTICASONE PROPIONATE 50 MCG/ACT NASAL SUSPENSION 2 s prays/nostril qd PRN Congestion/Allergies FLUTICASONE PROPION ATE 50 MCG/ACT NASAL SUSPENSION 5053555 FLUTICASONE PROPIONATE Inactive MIRALAX ORAL POWDER 8.5 to 17g po qd PRN Constipation MIRALAX ORAL POWDER 418438 POLYETHYLENE GLYCOL 3350 Inactive IBUPROFEN 800 MG ORAL TABLET 1 tab every 8 hours as needed for p ain IBUPROFEN 800 MG ORAL TABLET 850882 IBUPROFEN Krupa ctive HYDROCHLOROTHIAZIDE 12.5 MG ORAL CAPSULE 1 po qd PRN Edema 01/10 HYDROCHLOROTHIAZIDE 12.5 MG ORAL CAPSULE 562777 HYDROCH LOROTHIAZIDE Inactive CIPRO 500 MG ORAL TABLET 1 tablet by mouth twice daily CIPRO 500 MG ORAL TABLET 869584 CIPROFLOXACIN HCL Inactive FLUCONAZOLE 150 MG ORAL TABLET take 1 tab po qday once FLUCONAZOLE 150 MG ORAL TABLET 299069 FLUCONAZOLE Inactive ZITHROMAX Z-KARTHIK 250 MG ORAL TABLET 2 today, then 1 daily for 4 d ays ZITHROMAX Z-KARTHIK 250 MG ORAL TABLET 825275 AZITHROMYCIN Inactive PREDNISONE 20 MG ORAL TABLET 2 tabs daily for 3 days, 1 tab daily for 3 days, 1/2 tab daily for 2 days PREDNISONE 20 MG ORAL T ABLET 004436 PREDNISONE Inactive AZITHROMYCIN 250 MG ORAL TABLET 2 po qd x 1 day, then 1 po q d x 4 days AZITHROMYCIN 250 MG ORAL TABLET 854042 AZITHROMY SPARKLE Inactive PREDNISONE 20 MG ORAL TABLET 2 tabs daily for 3 days, 1 tab daily for 3 days, 1/2 tab daily for 2 days PREDNISONE 20 MG ORAL TABLET 163577 PREDNISONE Inactive CEFDINIR 300 MG ORAL CAPSULE by mouth twice a day 2013 CEFDINIR 300 MG ORAL CAPSULE 149544 CEFDINIR Inactive TRIAMCINOLONE ACETONIDE 0.1 % EXTERNAL OINTMENT Apply to affected areas TID for up to 2 weeks TRIAMCINOLONE ACETON ZACH 0.1 % EXTERNAL OINTMENT 8940904 TRIAMCINOLONE ACETONIDE Inactive PREDNISONE 20 MG ORAL TABLET 2 tabs daily for 3 days, 1 tab daily for 3 days, 1/2 tab daily for 2 days PREDNISONE 20 MG ORAL T ABLET 869242 PREDNISONE Inactive BACTRIM DS 800-160 MG ORAL TABLET 1 po BID x 7 days 29/04/10 BACTRIM DS 800-160 MG ORAL TABLET 620634 SULFAMETHOXAZOLE-TRIMETHOP RIM Inactive CIPRO 500 MG ORAL TABLET 1 tablet by mouth twice daily CIPRO 500 MG ORAL TABLET 860464 CIPROFLOXACIN HCL Inactive AZITHROMYCIN 250 MG ORAL TABLET 2 po qd x 1 day, then 1 po q d x 4 days AZITHROMYCIN 250 MG ORAL TABLET 949822 AZITHROMY SPARKLE Inactive FLAGYL 500 MG ORAL TABLET 1 tablet by mouth bid 04/13 FLAGYL 500 MG ORAL TABLET 789938 METRONIDAZOLE Inactive AZITHROMYCIN 250 MG ORAL TABLET 2 po qd x 1 day, then 1 po q d x 4 days AZITHROMYCIN 250 MG ORAL TABLET 047063 AZITHROMY SPARKLE Inactive AMOXICILLIN 500 MG ORAL CAPSULE 2 po BID x 10 days 201 01/15/27 AMOXICILLIN 500 MG ORAL CAPSULE 720943 AMOXICILLIN Inactive AMOXICILLIN 500 MG ORAL CAPSULE 2 po BID x 14 days for H. Pylori AMOXICILLIN 500 MG ORAL CAPSULE 847897 AMOXICILLIN Inactive CLARITHROMYCIN 500 MG ORAL TABLET 1 tab po BID x 14 days CLARITHROMYCIN 500 MG ORAL TABLET 307688 CLARITHROMYCIN Inacti ve FLAGYL 500 MG ORAL TABLET 1 tablet by mouth bid 08/29 FLAGYL 500 MG ORAL TABLET 533163 METRONIDAZOLE Inactive PROTONIX 40 MG ORAL TABLET DELAYED RELEASE 1 pill by m kayceeh daily, for acid reflux PROTONIX 40 MG ORAL TABLET DELAYED RELEAS E 790861 PANTOPRAZOLE SODIUM Inactive Immunizations Vaccine Administration Date [...] ... - Chemistry sodium, serum 138 mmol/L 214-421 9412/06/27 carbon dioxide, venous blood 30.3 mmol/L 21.0-32 [...] ... - Chemistry sodium, serum 139 mmol/L 896-510 9715/11/28 carbon dioxide, venous blood 26.0 mmol/L 21.0-32 [...] 5.0-8.5 Encounters Code Encounter Date Provider Facility CPT-13771 Level 3 Est. Patient 16:46:51 CDT Thomas reynolds DO [facility] CPT-32035 [id number] Vst-Est Level III 14:40:49 CDT Paul Hamlin MD [facility] CPT-17058 Level 4 Est. Patient 11:08:43 CDT Checo Conklin MD [facility]-99542 [id number] Vst-Est Level III 09:37:41 CDT Dangelo Rangel MD [facility] CPT-83127 Level 4 Est. Patient 08:57:51 MANAGER INSPECTION Checo oCnklin MD [facility] CPT-21198 Level 3 Est. Patient 11:24:55 MANAGER INSPECTION Efren almendarez [facility] CPT-61309 Level 3 Est. Patient 13:05:44 CDT Paul Hamlin MD [facility] CPT-71015 Level 3 Est. Patient 11:29:55 CDT Checo Conklin MD [facility] CPT-79078 Level 4 Est. Patient 11:08:12 MANAGER INSPECTION Checo Conklin MD [facility] CPT-31931 Level 4 Est. Patient 16:06:48 MANAGER INSPECTION Checo Conklin MD [facility] CPT-00018 Level 3 Est. Patient 09:11:49 CDT Efren almendarez [facility]-72473 Level 2 Est. Patient 19:53:27 CDT Tanner hill MD [facility] CPT-35195 Level 3 Est. Patient 09:15:34 CDT Efren almendarez [facility]-55699 Level 3 Est. Patient 11:28:51 MANAGER INSPECTION Efren almendarez APRN [facility] CPT-88970 Level 4 Est. Patient 13:55:46 MANAGER INSPECTION Checo Conklin MD [facility] CPT-64915 Level 4 Est. Patient 17:10:53 CDT Checo Conklin MD [facility] CPT-55353 Level 3 Est. Patient 15:56:22 CDT Checo Conklin MD [facility] CPT-92508 Level 3 Est. Patient 15:29:07 CDT Checo Conklin MD [facility] CPT-50564 Level 3 Est. Patient 14:38:41 CDT Checo Conklin MD [facility] CPT-19749 Level 3 Est. Patient 15:22:03 MANAGER INSPECTION Thomas reynolds DO [facility] CPT-40950 Level 3 Est. Patient 13:34:17 MANAGER INSPECTION Checo Conklin MD [facility] CPT-92158 Level 3 Est. Patient 12:29:32 CDT Dangelo arroyo MD [facility] CPT-54812 Level 3 Est. Patient 16:53:02 CDT Checo Conklin MD [facility] CPT-00813 Level 3 Est. Patient 16:37:13 CDT Checo Conklin MD [facility] CPT-10907 Level 3 Est. Patient 16:16:59 CDT Paul Hamlin MD [facility] CPT-17468 Level 3 Est. Patient 14:20:13 CDT Dangelo arroyo MD [facility] CPT-27471 Level 4 Est. Patient 11:29:33 CDT Checo Conklin MD [facility] CPT-98283 Level 3 Est. Patient 17:08:31 CDT Checo Conklin MD [facility] CPT-94242 Level 3 Est. Patient 16:50:42 MANAGER INSPECTION Checo Conklin MD [facility] CPT-67027 Level 4 Est. Patient 09:26:08 MANAGER INSPECTION Checo Conklin MD [facility] CPT-85550 Level 3 Est. Patient 11:37:10 CDT Checo Conklin MD [facility] CPT-78117 Level 4 Est. Patient 14:07:38 CDT Checo Conklin MD [facility] CPT-78074 Level 3 Est. Patient 09:54:41 CDT Checo Conklin MD [facility] CPT-19325 Level 3 Est. Patient 11:10:54 CDT Paul Hamlin MD [facility] CPT-79413 Level 3 Est. Patient 14:16:56 MANAGER INSPECTION Checo Conklin MD [facility] CPT-61227 Level 3 Est. Patient 11:04:11 MANAGER INSPECTION Checo Conklin MD [facility] CPT-25093 Level 3 Est. Patient 17:09:26 CDT Dangelo arroyo MD [facility] CPT-30675 Level 3 Est. Patient 16:54:37 CDT Checo Conklin MD [facility] Procedures Code Procedure Name Date Entry Date Standard Desc ription CPT-43686 Abx/Therapy Injection 09:52:15 CDT CPT-18543 Abx/Therapy Injection 18:17:48 CDT CPT-J2550 Phenergan 25 mg (Promethazine) 16:48:23 CDT CPT-J1885 Toradol 60 mg 16:48:23 CDT CPT-44633 Wrist, right, comp 3V - XRAY USE ONLY 09:24:31 CDT CPT-61597 Abd compl w upright - XRAY USE ONLY 1 1:36:54 MANAGER INSPECTION CPT-49847 UA w micro - LAB USE ONLY 17:06:46 CDT 2015 CPT-14196 [facility]CG Qual - LAB USE ONLY 17:06:46 CDT 05/06 CPT-61249 CMP - LAB USE ONLY 17:06:46 CDT CPT-66684 CBC with Diff - LAB USE ONLY 17:06:45 CDT 2 CPT-22034 Venipuncture Draw Fee 17:06:45 CDT CPT-LR Lesion Removal 19:53:27 CDT CPT-OV Office Visit 11:31:28 CDT CPT-11150 Tubersol 09:39:29 CDT CPT-J2550 Phenergan 25 mg (Promethazine) 13:59:02 MANAGER INSPECTION CPT-J1885 Toradol 60 mg (Ketorolac) 13:59:02 MANAGER INSPECTION 2012
--- OUTSIDE RECORDS SUMMARY | 2019-09-29 01:18 | XMS REPORT | Clinical Summary ---
Author Author Admin, Bethany Ayala [facility] [facility] Address Unknown Phone Unavailable Allergies, Adverse [...] RELEASE 1 daily with furosemide POTASSIUM CHLORIDE [id number] Active Paul Hamlin MD Active FUROSEMIDE 20 MG ORAL TABLET 1 daily for swelling FUROSEMIDE 81740172427 Active Paul Hamiln MD Active HYDROCHLOROTHIAZIDE 12.5 MG ORAL CAPSULE 1 po qd PRN Edema 01/10 HYDROCHLOROTHIAZIDE 81413103066 No Longer Active Paul Hamlin MD Active IBUPROFEN 800 MG ORAL TABLET 1 tab every 8 hours as needed for p ain IBUPROFEN 43881043877 No Longer Active Paul Hamlin MD Active PAROXETINE HCL 40 MG ORAL TABLET 1 po qd PAR OXETINE HCL 39020495845 Active Checo Conklin MD Active MIRALAX ORAL POWDER 8.5 to 17g po qd PRN Constipation POLYETHYLENE GLYCOL 3350 [id number] No Longer Active Checo Conklin MD Active PROTONIX 40 MG ORAL TABLET DELAYED RELEASE 1 pill by m outh daily, for acid reflux PANTOPRAZOLE SODIUM 19002021236 No Longer Activ e Corry Méndez LPN Active FLAGYL 500 MG ORAL TABLET 1 tablet by mouth bid 08/29 METRONIDAZOLE 16815238496 No Longer Active Corry Méndez LPN Active CLARITHROMYCIN 500 MG ORAL TABLET 1 tab po BID x 14 days CLARITHROMYCIN 24516848468 No Longer Active Corry Méndez LPN Active AMOXICILLIN 500 MG ORAL CAPSULE 2 po BID x 14 days for H. Pylori AMOXICILLIN 61704204857 No Longer Active Corry Méndez LPN Active FLUTICASONE PROPIONATE 50 MCG/ACT NASAL SUSPENSION 2 s prays/nostril qd PRN Congestion/Allergies FLUTICASONE PROPIONATE 7855804088 9 No Longer Active Checo Conklin MD Active AMOXICILLIN 500 MG ORAL CAPSULE 2 po BID x 10 days 201 01/15/27 AMOXICILLIN 89769930384 No Longer Active Checo Conklin MD Activ e CLARITIN 10 MG ORAL TABLET 1 tablet by mouth daily as needed for allergies LORATADINE 71363302082 No Longer Active Checo Ortiz MD Active BACTRIM DS 800-160 MG ORAL TABLET 1 tab by mouth twice daily 201 12/19/26 TRIMETHOPRIM-SULFAMETHOXAZOLE 42008995784 No Longer Active Ragini Carrillo MD Active DIFLUCAN 150 MG ORAL TABLET 1 tablet by mouth qod 2015 FLUCONAZOLE 33273174226 No Longer Active Efren Medel POT FEEDER Act mike AZITHROMYCIN 250 MG ORAL TABLET 2 po qd x 1 day, then 1 po q d x 4 days AZITHROMYCIN 45411179531 No Longer Active Efren flores POT FEEDER Active FLAGYL 500 MG ORAL TABLET 1 tablet by mouth bid 04/13 METRONIDAZOLE 77972915968 No Longer Active Checo Conklin MD Acti ve FOCALIN XR 10 MG ORAL CAPSULE EXTENDED RELEASE 24 HOUR 1 po q a.m. DEXMETHYLPHENIDATE HCL 15940778546 Active Checo Conklin MD Active MAGNESIUM CITRATE 1.745 GM/30ML ORAL SOLUTION 150ml po BID P RN Constipation MAGNESIUM CITRATE 10609025583 No Longer Active Checo Conklin MD Active BACTROBAN 2 % EXTERNAL CREAM Apply to affected area BID for up to 10 days MUPIROCIN CALCIUM 86649247875 No Longer Active Checo Conklin MD Active HYDROCODONE-ACETAMINOPHEN 5-325 MG ORAL TABLET 1 tab b y mouth every 6 hours as needed HYDROCODONE-ACETAMINOPHEN 71720887652 No Longer Active Checo Conklin MD Active IBUPROFEN 800 MG ORAL TABLET 1 tab every 8 hours with food 03/20 IBUPROFEN 59036137702 No Longer Active Checo Conklin MD Active DIFLUCAN 150 MG ORAL TABLET 1 tablet by mouth if neede d, hold until symptoms start FLUCONAZOLE 93652064395 No Longer Active Checo Conklin MD Active BACTRIM DS 800-160 MG ORAL TABLET 1 tab by mouth twice daily 201 11/23/03 TRIMETHOPRIM-SULFAMETHOXAZOLE 97016692075 No Longer Active K bernice Méndez LPN Active HYDROCODONE-ACETAMINOPHEN 5-325 MG ORAL TABLET 0.5 to 1 tab by mouth every 6 hours as needed HYDROCODONE-ACETAMINOPHEN 66710210149 No Longer Active Checo Conklin MD Active ONDANSETRON 8 MG ORAL TABLET DISINTEGRATING place one tablet on tongue and allow to dissolve every 6 hours as needed for vomitting ONDANSETRON 49153384176 No Longer Active Checo Conklin MD Activ e COMPRO 25 MG RECTAL SUPPOSITORY insert or apply one garza ppository rectally as directed every 12 hours as needed for nausea PROCHLORPERAZINE 31980572773 No Longer Active Checo Conklin MD A ctive SUMATRIPTAN SUCCINATE 100 MG ORAL TABLET Take one PRN for migran e SUMATRIPTAN SUCCINATE 84363557322 No Longer Active Checo Conklin MD Active TRAVEL SICKNESS 25 MG ORAL TABLET CHEWABLE chew and sw allow one tablet every 6 hours as needed MECLIZINE HCL 01069236677 No Longer A ctive Checo Conklin MD Active BUPROPION HCL ER (SR) 100 MG ORAL TABLET EXTENDED RELE ASE 12 HOUR take one tablet by mouth one time daily for one week then take 1 two times daily BUPROPION HCL 53482561496 No Longer Active Checo gallagher MD Active TERBINAFINE HCL 250 MG ORAL TABLET take one table PO one time da moises TERBINAFINE HCL 30036680881 No Longer Active Checo Conklin MD Active METOCLOPRAMIDE HCL 10 MG ORAL TABLET take one PO tid PRN nausea METOCLOPRAMIDE HCL 80266293056 No Longer Active Checo Conklin MD Active DICLOFENAC SODIUM 75 MG ORAL TABLET DELAYED RELEASE 1 tablet by mouth twice daily PRN Knee pain DICLOFENAC SODIUM 44593607296 No Longer Active Checo Conklin MD Active LAMISIL 250 MG ORAL TABLET 1 po qd TERBINAFI NE HCL 24069770687 No Longer Active Checo Conklin MD Active REGLAN 10 MG ORAL TABLET 1 po TID PRN Nausea 3 METOCLOPRAMIDE HCL 28693956611 No Longer Active Checo Conklin MD Active CELEXA 20 MG ORAL TABLET 1 tablet by mouth daily 09/26 CITALOPRAM HYDROBROMIDE 24219167703 No Longer Active Checo Conklin MD Active AZITHROMYCIN 250 MG ORAL TABLET 2 po qd x 1 day, then 1 po q d x 4 days AZITHROMYCIN 74476638584 No Longer Active Checo Ortiz MD Active HYDROCODONE-ACETAMINOPHEN 5-325 MG ORAL TABLET 1 po q 6hr PRN Pa in HYDROCODONE-ACETAMINOPHEN 41583731651 No Longer Active Lenora Conklin MD Active PHENAZOPYRIDINE HCL 200 MG ORAL TABLET take 1 tab po TID for bladder pain PHENAZOPYRIDINE HCL 05653837289 No Longer Active Joe Conklin MD Active CIPRO 500 MG ORAL TABLET 1 tablet by mouth twice daily CIPROFLOXACIN HCL 56803518453 No Longer Active Dangelo Rangel MD Active HYDROCODONE-ACETAMINOPHEN 5-325 MG ORAL TABLET 1/2 to 1 po q 4 hours prn cough HYDROCODONE-ACETAMINOPHEN 16393767430 No Longer Activ candy Rangel MD Active BACTRIM DS 800-160 MG ORAL TABLET 1 po BID x 7 days 29/04/10 SULFAMETHOXAZOLE-TRIMETHOPRIM 15432082946 No Longer Active Checo Conklin MD Active PREDNISONE 20 MG ORAL TABLET 2 tabs daily for 3 days, 1 tab daily for 3 days, 1/2 tab daily for 2 days PREDNISONE 97081089782 No Longer Active Checo Conklin MD Active TRIAMCINOLONE ACETONIDE 0.1 % EXTERNAL OINTMENT Apply to affected areas TID for up to 2 weeks TRIAMCINOLONE ACETONIDE 46751285094 No Longer Active Checo Conklin MD Active CEFDINIR 300 MG ORAL CAPSULE by mouth twice a day 2013 CEFDINIR 62940134006 No Longer Active Dangelo Rangel MD Acti ve BUPROPION HCL ER (SMOKING DET) 150 MG ORAL TABLET EXTE NDED RELEASE 12 HOUR 1 a day for 1 week then 1 twice a day BUPROPION HCL (SMOKING DETER) 91106166536 No Longer Active Checo Conklin MD Active SIMVASTATIN 20 MG ORAL TABLET 1 po qd SIMVASTAT IN 79700398888 Active Checo Conklin MD Active CHANTIX STARTING MONTH KARTHIK 0.5 MG X 11 & 1 MG X 42 ORA L TABLET 0.5mg daily for 3 days, then 0.5mg BID for 4 days, then 1mg BID VARENICLINE TARTRATE 52289416907 No Longer Active Checo Conklin MD Activ e XANAX 0.5 MG ORAL TABLET 1 po BID PRN anxiety A LPRAZOLAM 90688429402 Active Checo Conklin MD Active CONCERTA 18 MG ORAL TABLET EXTENDED RELEASE 1 po q a.m. METHYLPHENIDATE HCL 90566929198 No Longer Active Checo Conklin MD Active AMBIEN 5 MG ORAL TABLET 1 po qHS PRN Insomnia Z OLPIDEM TARTRATE 85269773720 Active Checo Conklin MD Active TRAZODONE HCL 100 MG ORAL TABLET 0.5 to 1 po qHS PRN Insomnia 20 30/07/08 TRAZODONE HCL 18819036279 No Longer Active Checo Conklin MD Active FIORICET 325-50-40 MG TAB 1 tablet by mouth four times daily as needed [id number]-[id number] 86176414201 No Longer Active Checo Conklin MD Active PHENERGAN CREAM* 25mg applied to wrist q6hr PRN Nausea PHENERGAN CREAM* No Longer Active Checo Conklin MD A ctive FLONASE 50 MCG/ACT NASAL SUSPENSION 1 spray each nostril am and hs FLUTICASONE PROPIONATE 90204629023 No Longer Active Checo Conklin MD Active ANTIPYRINE-BENZOCAINE 5.4-1.4 % OTIC SOLUTION 1-2 drops in affec yohannes ear BENZOCAINE-ANTIPYRINE 89020238659 No Longer Active Checo Conklin MD Active CEFDINIR 300 MG ORAL CAPSULE 1 po bid CEFDINIR 83336141980 No Longer Active Checo Conklin MD Active PREDNISONE 20 MG ORAL TABLET 2 tabs daily for 3 days, 1 tab daily for 3 days, 1/2 tab daily for 2 days PREDNISONE 47037823705 No Longer Active Checo Conklin MD Active AZITHROMYCIN 250 MG ORAL TABLET 2 po qd x 1 day, then 1 po q d x 4 days AZITHROMYCIN 90894210675 No Longer Active Checo Ortiz MD Active PREDNISONE 20 MG ORAL TABLET 2 tabs daily for 3 days, 1 tab daily for 3 days, 1/2 tab daily for 2 days PREDNISONE 98605898696 No Longer Active Checo Conklin MD Active ZITHROMAX Z-KARTHIK 250 MG ORAL TABLET 2 today, then 1 daily for 4 d ays AZITHROMYCIN 96516515813 No Longer Active Paul Hamlin MD Active FOCALIN XR 10 MG ORAL CAPSULE EXTENDED RELEASE 24 HOUR 1 po q a. m. DEXMETHYLPHENIDATE HCL 29766798264 No Longer Active Paul Hamlin MD Active PERCOCET 10-325 MG ORAL TABLET 1 tablet every 6 hours as needed for pain OXYCODONE-ACETAMINOPHEN 28037252704 No Longer Active Paul Hamlin MD Active LORTAB 5-500 MG ORAL TABLET 1/2 to 1 tablet by mouth e very 4 hours as needed for pain HYDROCODONE-ACETAMINOPHEN 78935302649 No Longer Active Checo Conklin MD Active FOCALIN XR 15 MG ORAL CAPSULE EXTENDED RELEASE 24 HOUR 1 po q a. m. DEXMETHYLPHENIDATE HCL 63313187042 No Longer Active Checo Conklin MD Active ZOFRAN ODT 4 MG ORAL TABLET DISINTEGRATING 1 po q6hr PRN Nausea ONDANSETRON 98510653582 No Longer Active Checo Conklin MD Active PERCOCET 5-325 MG ORAL TABLET 1 tablet by mouth every 6 hour s as needed OXYCODONE-ACETAMINOPHEN 45183566477 No Longer Active Checo Conklin MD Active PYRIDIUM 200 MG ORAL TABLET take 1 tab po TID prn urinary pain. PHENAZOPYRIDINE HCL 02415157260 No Longer Active Checo Joshua Active FLUCONAZOLE 150 MG ORAL TABLET take 1 tab po qday once FLUCONAZOLE 65429634751 No Longer Active Dangelo Rangel MD Acti ve CIPRO 500 MG ORAL TABLET 1 tablet by mouth twice daily CIPROFLOXACIN HCL 78317395942 No Longer Active Dangelo Rangel MD Active PYRIDIUM 200 MG ORAL TABLET take 1 tab po TID prn urinary pain. PYRIDIUM 200 MG ORAL TABLET 6072367 PHENAZOPYRIDINE HCL Inactive PERCOCET 5-325 MG ORAL TABLET 1 tablet by mouth every 6 hour s as needed PERCOCET 5-325 MG ORAL TABLET 4954960 OXYCODONE-ACETAMINOPHEN Inactive ZOFRAN ODT 4 MG ORAL TABLET DISINTEGRATING 1 po q6hr PRN Nausea ZOFRAN ODT 4 MG ORAL TABLET DISINTEGRATING 374741 ONDAN SETRON Inactive FOCALIN XR 15 MG [...] for pain PERCOCET 10-325 MG ORAL TABLET 2081679 OXYCODONE-ACETAMI NOPHEN Inactive FOCALIN XR 10 MG ORAL CAPSULE EXTENDED RELEASE 24 HOUR 1 po q a. m. FOCALIN XR 10 MG ORAL CAPSULE EXTENDED RELEASE 24 HOUR DEXMETHYLPHENIDATE HCL Inactive CEFDINIR 300 MG ORAL CAPSULE 1 po bid CEFDINI R 300 MG ORAL CAPSULE 053693 CEFDINIR Inactive ANTIPYRINE-BENZOCAINE 5.4-1.4 % OTIC SOLUTION 1-2 drops in affec yohannes ear ANTIPYRINE-BENZOCAINE 5.4-1.4 % OTIC SOLUTION BENZOCAINE-ANTIPYRINE Inactive FLONASE 50 MCG/ACT NASAL SUSPENSION 1 spray each nostril am and hs FLONASE 50 MCG/ACT NASAL SUSPENSION 7457235 FLUTICASONE PROPIONATE I nactive PHENERGAN CREAM* 25mg applied to wrist q6hr PRN Nausea PHENERGAN CREAM* Inactive FIORICET 325-50-40 MG TAB 1 tablet by mouth four times daily as needed FIORICET 325-50-40 MG TAB ACETAMINOPHEN-C AFF-BUTALBITAL Inactive TRAZODONE HCL 100 MG ORAL TABLET 0.5 to 1 po qHS PRN Insomnia 20 30/07/08 TRAZODONE HCL 100 MG ORAL TABLET 069821 TRAZODONE HCL Inactive CONCERTA 18 MG ORAL [...] cough HYDROCODONE-ACETAMINOPHEN 5-325 MG ORAL TABLET 8 00520 HYDROCODONE-ACETAMINOPHEN Inactive PHENAZOPYRIDINE HCL 200 MG ORAL TABLET take 1 tab po TID for bladder pain PHENAZOPYRIDINE HCL 200 MG ORAL TABLET 6401087 PHENAZOPYRIDINE HCL Inactive HYDROCODONE-ACETAMINOPHEN 5-325 MG ORAL TABLET 1 po q 6hr PRN Pa in HYDROCODONE-ACETAMINOPHEN 5-325 MG ORAL TABLET 736706 HYDROCODONE-ACETAMINOPHEN Inactive CELEXA 20 MG ORAL TABLET 1 tablet by mouth daily 09/26 CELEXA 20 MG ORAL TABLET 563325 CITALOPRAM HYDROBROMIDE Inactive REGLAN 10 MG ORAL TABLET 1 po TID PRN Nausea 3 REGLAN 10 MG ORAL TABLET 389636 METOCLOPRAMIDE HCL Inactive LAMISIL 250 MG ORAL TABLET 1 po qd L AMISIL 250 MG ORAL TABLET 834567 TERBINAFINE HCL Inactive DICLOFENAC SODIUM 75 MG ORAL TABLET DELAYED RELEASE 1 tablet by mouth twice daily PRN Knee pain DICLOFENAC SODIUM 75 MG ORAL TABLET DELAYED RELEASE 904679 DICLOFENAC SODIUM Inactive METOCLOPRAMIDE HCL 10 MG ORAL TABLET take one PO tid PRN nausea METOCLOPRAMIDE HCL 10 MG ORAL TABLET 487756 METOCLOPRAM ZACH HCL Inactive TERBINAFINE HCL 250 MG ORAL TABLET take one table PO one time da moises TERBINAFINE HCL 250 MG ORAL TABLET 138314 TERBINAFINE H CL Inactive BUPROPION HCL ER [...] SICKNESS 25 M G ORAL TABLET CHEWABLE 176353 MECLIZINE HCL Inactive SUMATRIPTAN SUCCINATE 100 MG ORAL TABLET Take one PRN for migran e SUMATRIPTAN SUCCINATE 100 MG ORAL TABLET 015400 SUMATRIPTAN SUCCINATE Inactive COMPRO 25 MG RECTAL SUPPOSITORY insert or apply one garza ppository rectally as directed every 12 hours as needed for nausea COMPRO 25 MG RECTAL SUPPOSITORY 896171 PROCHLORPERAZINE Inactive ONDANSETRON 8 MG ORAL TABLET DISINTEGRATING place one tablet on tongue and allow to dissolve every 6 hours as needed for vomitting ONDANSETRON 8 MG ORAL TABLET DISINTEGRATING 625782 ONDANSETRON Inactive HYDROCODONE-ACETAMINOPHEN 5-325 MG ORAL TABLET 0.5 to 1 tab by mouth every 6 hours as needed HYDROCODONE-ACETAMIN OPHEN 5-325 MG ORAL TABLET 594031 HYDROCODONE-ACETAMINOPHEN Inactive BACTRIM DS 800-160 MG ORAL TABLET 1 tab by mouth twice daily 201 11/23/03 BACTRIM DS 800-160 MG ORAL TABLET 897328 TRIMETHOPRIM-SULFAMETHOXAZOLE Inactive DIFLUCAN 150 MG ORAL TABLET 1 tablet by mouth if neede d, hold until symptoms start DIFLUCAN 150 MG ORAL TABLET 088582 FLUCONAZ OLE Inactive IBUPROFEN 800 MG ORAL TABLET 1 tab every 8 hours with food 03/20 IBUPROFEN 800 MG ORAL TABLET 210171 IBUPROFEN Krupa ctive HYDROCODONE-ACETAMINOPHEN 5-325 MG ORAL TABLET 1 tab b y mouth every 6 hours as needed HYDROCODONE-ACETAMINOPHEN 5-325 MG ORAL TABLET 680457 HYDROCODONE-ACETAMINOPHEN Inactive BACTROBAN 2 % EXTERNAL CREAM Apply to affected area BID for up to 10 days BACTROBAN 2 % EXTERNAL CREAM 486246 MUPIROCIN CA LCIUM Inactive MAGNESIUM CITRATE 1.745 GM/30ML ORAL SOLUTION 150ml po BID P RN Constipation MAGNESIUM CITRATE 1.745 GM/30ML ORAL SOLUTION 10 65801 MAGNESIUM CITRATE Inactive DIFLUCAN 150 MG ORAL TABLET 1 tablet by mouth qod 2015 DIFLUCAN 150 MG ORAL TABLET 423564 FLUCONAZOLE Inactive BACTRIM DS 800-160 MG ORAL TABLET 1 tab by mouth twice daily 201 12/19/26 BACTRIM DS 800-160 MG ORAL TABLET 240565 TRIMETHOPRIM-SULFAMETHOXAZOLE Inactive CLARITIN 10 MG ORAL TABLET 1 tablet by mouth daily as needed for allergies CLARITIN 10 MG ORAL TABLET 573658 LORATADINE I nactive FLUTICASONE PROPIONATE 50 MCG/ACT NASAL SUSPENSION 2 s prays/nostril qd PRN Congestion/Allergies FLUTICASONE PROPION ATE 50 MCG/ACT NASAL SUSPENSION 5807014 FLUTICASONE PROPIONATE Inactive MIRALAX ORAL POWDER 8.5 to 17g po qd PRN Constipation MIRALAX ORAL POWDER 265872 POLYETHYLENE GLYCOL 3350 Inactive IBUPROFEN 800 MG ORAL TABLET 1 tab every 8 hours as needed for p ain IBUPROFEN 800 MG ORAL TABLET 909534 IBUPROFEN Krupa ctive HYDROCHLOROTHIAZIDE 12.5 MG ORAL CAPSULE 1 po qd PRN Edema 01/10 HYDROCHLOROTHIAZIDE 12.5 MG ORAL CAPSULE 685114 HYDROCH LOROTHIAZIDE Inactive CIPRO 500 MG ORAL TABLET 1 tablet by mouth twice daily CIPRO 500 MG ORAL TABLET 716044 CIPROFLOXACIN HCL Inactive FLUCONAZOLE 150 MG ORAL TABLET take 1 tab po qday once FLUCONAZOLE 150 MG ORAL TABLET 989608 FLUCONAZOLE Inactive ZITHROMAX Z-KARTHIK 250 MG ORAL TABLET 2 today, then 1 daily for 4 d ays ZITHROMAX Z-KARTHIK 250 MG ORAL TABLET 757094 AZITHROMYCIN Inactive PREDNISONE 20 MG ORAL TABLET 2 tabs daily for 3 days, 1 tab daily for 3 days, 1/2 tab daily for 2 days PREDNISONE 20 MG ORAL T ABLET 252157 PREDNISONE Inactive AZITHROMYCIN 250 MG ORAL TABLET 2 po qd x 1 day, then 1 po q d x 4 days AZITHROMYCIN 250 MG ORAL TABLET 293394 AZITHROMY SPARKLE Inactive PREDNISONE 20 MG ORAL TABLET 2 tabs daily for 3 days, 1 tab daily for 3 days, 1/2 tab daily for 2 days PREDNISONE 20 MG ORAL TABLET 680065 PREDNISONE Inactive CEFDINIR 300 MG ORAL CAPSULE by mouth twice a day 2013 CEFDINIR 300 MG ORAL CAPSULE 734974 CEFDINIR Inactive TRIAMCINOLONE ACETONIDE 0.1 % EXTERNAL OINTMENT Apply to affected areas TID for up to 2 weeks TRIAMCINOLONE ACETON ZACH 0.1 % EXTERNAL OINTMENT 8361139 TRIAMCINOLONE ACETONIDE Inactive PREDNISONE 20 MG ORAL TABLET 2 tabs daily for 3 days, 1 tab daily for 3 days, 1/2 tab daily for 2 days PREDNISONE 20 MG ORAL T ABLET 552226 PREDNISONE Inactive BACTRIM DS 800-160 MG ORAL TABLET 1 po BID x 7 days 29/04/10 BACTRIM DS 800-160 MG ORAL TABLET 295321 SULFAMETHOXAZOLE-TRIMETHOP RIM Inactive CIPRO 500 MG ORAL TABLET 1 tablet by mouth twice daily CIPRO 500 MG ORAL TABLET 230637 CIPROFLOXACIN HCL Inactive AZITHROMYCIN 250 MG ORAL TABLET 2 po qd x 1 day, then 1 po q d x 4 days AZITHROMYCIN 250 MG ORAL TABLET 183594 AZITHROMY SPARKLE Inactive FLAGYL 500 MG ORAL TABLET 1 tablet by mouth bid 04/13 FLAGYL 500 MG ORAL TABLET 005203 METRONIDAZOLE Inactive AZITHROMYCIN 250 MG ORAL TABLET 2 po qd x 1 day, then 1 po q d x 4 days AZITHROMYCIN 250 MG ORAL TABLET 615727 AZITHROMY SPARKLE Inactive AMOXICILLIN 500 MG ORAL CAPSULE 2 po BID x 10 days 201 01/15/27 AMOXICILLIN 500 MG ORAL CAPSULE 531070 AMOXICILLIN Inactive AMOXICILLIN 500 MG ORAL CAPSULE 2 po BID x 14 days for H. Pylori AMOXICILLIN 500 MG ORAL CAPSULE 776113 AMOXICILLIN Inactive CLARITHROMYCIN 500 MG ORAL TABLET 1 tab po BID x 14 days CLARITHROMYCIN 500 MG ORAL TABLET 777729 CLARITHROMYCIN Inacti ve FLAGYL 500 MG ORAL TABLET 1 tablet by mouth bid 08/29 FLAGYL 500 MG ORAL TABLET 889308 METRONIDAZOLE Inactive PROTONIX 40 MG ORAL TABLET DELAYED RELEASE 1 pill by m outh daily, for acid reflux PROTONIX 40 MG ORAL TABLET DELAYED RELEAS E 659709 PANTOPRAZOLE SODIUM Inactive Immunizations Vaccine Administration Date [...] ... - Chemistry sodium, serum 138 mmol/L 288-523 6026/06/27 carbon dioxide, venous blood 30.3 mmol/L 21.0-32 [...] ... - Chemistry sodium, serum 139 mmol/L 622-384 3306/11/28 carbon dioxide, venous blood 26.0 mmol/L 21.0-32 [...] 5.0-8.5 Encounters Code Encounter Date Provider Facility CPT-63002 Level 3 Est. Patient 16:46:51 CDT Thomas reynolds DO [facility] CPT-21288 [id number] Vst-Est Level III 14:40:49 CDT Paul Hamlin MD [facility] CPT-79688 Level 4 Est. Patient 11:08:43 CDT Checo Conklin MD [facility]-61857 [id number] Vst-Est Level III 09:37:41 CDT Dangelo Rangel MD [facility] CPT-06386 Level 4 Est. Patient 08:57:51 SALES LEDGER ADMINISTRATOR Checo Conklin MD [facility] CPT-99781 Level 3 Est. Patient 11:24:55 SALES LEDGER ADMINISTRATOR Efren almendarez [facility] CPT-04846 Level 3 Est. Patient 13:05:44 CDT Paul Hamlin MD [facility] CPT-51182 Level 3 Est. Patient 11:29:55 CDT Checo Conklin MD [facility] CPT-82561 Level 4 Est. Patient 11:08:12 SALES LEDGER ADMINISTRATOR Checo Conklin MD [facility] CPT-48057 Level 4 Est. Patient 16:06:48 SALES LEDGER ADMINISTRATOR Checo Conklin MD [facility] CPT-44283 Level 3 Est. Patient 09:11:49 CDT Efren almendarez [facility]-25614 Level 2 Est. Patient 19:53:27 CDT Tanner hill MD [facility] CPT-15645 Level 3 Est. Patient 09:15:34 CDT Efren almendarez [facility]-81280 Level 3 Est. Patient 11:28:51 SALES LEDGER ADMINISTRATOR Efren almendarez APRN [facility] CPT-31361 Level 4 Est. Patient 13:55:46 SALES LEDGER ADMINISTRATOR Checo Conklin MD [facility] CPT-67109 Level 4 Est. Patient 17:10:53 CDT Checo Conklin MD [facility] CPT-85371 Level 3 Est. Patient 15:56:22 CDT Checo Conklin MD [facility] CPT-74047 Level 3 Est. Patient 15:29:07 CDT Checo Conklin MD [facility] CPT-83390 Level 3 Est. Patient 14:38:41 CDT Checo Conklin MD [facility] CPT-14667 Level 3 Est. Patient 15:22:03 SALES LEDGER ADMINISTRATOR Thomas reynolds DO [facility] CPT-65188 Level 3 Est. Patient 13:34:17 SALES LEDGER ADMINISTRATOR Checo Conklin MD [facility] CPT-84945 Level 3 Est. Patient 12:29:32 CDT Dangelo arroyo MD [facility]-74188 Level 3 Est. Patient 16:53:02 CDT Checo Conklin MD [facility] CPT-47735 Level 3 Est. Patient 16:37:13 CDT Checo Conklin MD [facility] CPT-59621 Level 3 Est. Patient 16:16:59 CDT Paul Hamlin MD [facility] CPT-88040 Level 3 Est. Patient 14:20:13 CDT Dangelo arroyo MD [facility] CPT-60338 Level 4 Est. Patient 11:29:33 CDT Checo Conklin MD [facility] CPT-35927 Level 3 Est. Patient 17:08:31 CDT Checo Conklin MD [facility] CPT-10884 Level 3 Est. Patient 16:50:42 SALES LEDGER ADMINISTRATOR Checo Conklin MD [facility] CPT-49500 Level 4 Est. Patient 09:26:08 SALES LEDGER ADMINISTRATOR Checo Conklin MD [facility] CPT-87428 Level 3 Est. Patient 11:37:10 CDT Checo Conklin MD [facility] CPT-77132 Level 4 Est. Patient 14:07:38 CDT Checo Conklin MD [facility] CPT-00455 Level 3 Est. Patient 09:54:41 CDT Checo Conklin MD [facility] CPT-07714 Level 3 Est. Patient 11:10:54 CDT Paul Hamlin MD [facility] CPT-42798 Level 3 Est. Patient 14:16:56 SALES LEDGER ADMINISTRATOR Checo Conklin MD [facility] CPT-11487 Level 3 Est. Patient 11:04:11 SALES LEDGER ADMINISTRATOR Checo Conklin MD [facility] CPT-14648 Level 3 Est. Patient 17:09:26 CDT Dangelo arroyo MD [facility] CPT-96420 Level 3 Est. Patient 16:54:37 CDT Checo Conklin MD [facility] Procedures Code Procedure Name Date Entry Date Standard Desc ription CPT-83835 Abx/Therapy Injection 09:52:15 CDT CPT-08150 Abx/Therapy Injection 18:17:48 CDT CPT-J2550 Phenergan 25 mg (Promethazine) 16:48:23 CDT CPT-J1885 Toradol 60 mg 16:48:23 CDT CPT-59210 Wrist, right, comp 3V - XRAY USE ONLY 09:24:31 CDT CPT-75598 Abd compl w upright - XRAY USE ONLY 1 1:36:54 SALES LEDGER ADMINISTRATOR CPT-20387 UA w micro - LAB USE ONLY 17:06:46 CDT 2015 CPT-39647 BHCG Qual - LAB USE ONLY 17:06:46 CDT 05/06 CPT-49390 CMP - LAB USE ONLY 17:06:46 CDT CPT-46825 CBC with Diff - LAB USE ONLY 17:06:45 CDT 2 CPT-03249 Venipuncture Draw Fee 17:06:45 CDT CPT-LR Lesion Removal 19:53:27 CDT CPT-OV Office Visit 11:31:28 CDT CPT-06237 Tubersol 09:39:29 CDT CPT-J2550 Phenergan 25 mg (Promethazine) 13:59:02 SALES LEDGER ADMINISTRATOR CPT-J1885 Toradol 60 mg (Ketorolac) 13:59:02 SALES LEDGER ADMINISTRATOR 2012
--- OUTSIDE RECORDS SUMMARY | 2019-09-29 01:18 | XMS REPORT | Clinical Summary ---
Author Author Admin, Bethany Ayala [facility] Address Unknown Phone Unavailable Allergies, Adverse [...] RELEASE 1 daily with furosemide POTASSIUM CHLORIDE 25524274868 Active Paul Hamlin MD Active FUROSEMIDE 20 MG ORAL TABLET 1 daily for swelling FUROSEMIDE 65206435307 Active Paul Hamlin MD Active HYDROCHLOROTHIAZIDE 12.5 MG ORAL CAPSULE 1 po qd PRN Edema 01/10 HYDROCHLOROTHIAZIDE 98324996010 No Longer Active Paul Hamlin MD Active IBUPROFEN 800 MG ORAL TABLET 1 tab every 8 hours as needed for p ain IBUPROFEN 22852861820 No Longer Active Paul Hamlin MD Active PAROXETINE HCL 40 MG ORAL TABLET 1 po qd PAR OXETINE HCL 98837452157 Active Checo Conklin MD Active MIRALAX ORAL POWDER 8.5 to 17g po qd PRN Constipation POLYETHYLENE GLYCOL 3350 88244153389 No Longer Active Checo Conklin MD Active PROTONIX 40 MG ORAL TABLET DELAYED RELEASE 1 pill by m out daily, for acid reflux PANTOPRAZOLE SODIUM 04798728365 No Longer Activ e Corry Méndez LPN Active FLAGYL 500 MG ORAL TABLET 1 tablet by mouth bid 08/29 METRONIDAZOLE 64369368985 No Longer Active Corry Méndez LPN Active CLARITHROMYCIN 500 MG ORAL TABLET 1 tab po BID x 14 days CLARITHROMYCIN 14103449301 No Longer Active Corry Méndez LPN Active AMOXICILLIN 500 MG ORAL CAPSULE 2 po BID x 14 days for H. Pylori AMOXICILLIN 78543307284 No Longer Active Corry Méndez LPN Active FLUTICASONE PROPIONATE 50 MCG/ACT NASAL SUSPENSION 2 s prays/nostril qd PRN Congestion/Allergies FLUTICASONE PROPIONATE 9332639104 9 No Longer Active Checo Conklin MD Active AMOXICILLIN 500 MG ORAL CAPSULE 2 po BID x 10 days 201 01/15/27 AMOXICILLIN 32094616043 No Longer Active Checo Conklin MD Activ e CLARITIN 10 MG ORAL TABLET 1 tablet by mouth daily as needed for allergies LORATADINE 63423573845 No Longer Active Checo Ortiz MD Active BACTRIM DS 800-160 MG ORAL TABLET 1 tab by mouth twice daily 201 12/19/26 TRIMETHOPRIM-SULFAMETHOXAZOLE 39612131758 No Longer Active Ragini Carrillo MD Active DIFLUCAN 150 MG ORAL TABLET 1 tablet by mouth qod 2015 FLUCONAZOLE 83728323077 No Longer Active 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 DEXMETHYLPHENIDATE HCL 24589371818 Active Checo Conklin MD Active MAGNESIUM CITRATE 1.745 GM/30ML ORAL SOLUTION 150ml po BID P RN Constipation MAGNESIUM CITRATE 96472342680 No Longer Active Checo Conklin MD Active BACTROBAN 2 % EXTERNAL CREAM Apply to affected area BID for up to 10 days MUPIROCIN CALCIUM 87555792022 No Longer Active Checo Conklin MD Active HYDROCODONE-ACETAMINOPHEN 5-325 MG ORAL TABLET 1 tab b y mouth every 6 hours as needed HYDROCODONE-ACETAMINOPHEN 53032429081 No Longer Active Checo Conklin MD Active IBUPROFEN 800 MG ORAL TABLET 1 tab every 8 hours with food 03/20 IBUPROFEN 36103739914 No Longer Active Checo Conklin MD Active DIFLUCAN 150 MG ORAL TABLET 1 tablet by mouth if neede d, hold until symptoms start FLUCONAZOLE 54408121140 No Longer Active Checo Conklin MD Active BACTRIM DS 800-160 MG ORAL TABLET 1 tab by mouth twice daily 201 11/23/03 TRIMETHOPRIM-SULFAMETHOXAZOLE 98262601282 No Longer Active K bernice Méndez LPN Active HYDROCODONE-ACETAMINOPHEN 5-325 MG ORAL TABLET 0.5 to 1 tab by mouth every 6 hours as needed HYDROCODONE-ACETAMINOPHEN 56350455202 No Longer Active Checo Conklin MD Active ONDANSETRON 8 MG ORAL TABLET DISINTEGRATING place one tablet on tongue and allow to dissolve every 6 hours as needed for vomitting ONDANSETRON 43395863812 No Longer Active Checo Conklin MD Activ e COMPRO 25 MG RECTAL SUPPOSITORY insert or apply one garza ppository rectally as directed every 12 hours as needed for nausea PROCHLORPERAZINE 13909389872 No Longer Active Checo Conklin MD A ctive SUMATRIPTAN SUCCINATE 100 MG ORAL TABLET Take one PRN for migran e SUMATRIPTAN SUCCINATE 23398766508 No Longer Active Checo Conklin MD Active TRAVEL SICKNESS 25 MG ORAL TABLET CHEWABLE chew and sw allow one tablet every 6 hours as needed MECLIZINE HCL 15908651832 No Longer A ctive Checo Conklin MD Active BUPROPION HCL ER (SR) 100 MG ORAL TABLET EXTENDED RELE ASE 12 HOUR take one tablet by mouth one time daily for one week then take 1 two times daily BUPROPION HCL 43136119225 No Longer Active Checo gallagher MD Active TERBINAFINE HCL 250 MG ORAL TABLET take one table PO one time da moises TERBINAFINE HCL 47530608744 No Longer Active Checo Conklin MD Active METOCLOPRAMIDE HCL 10 MG ORAL TABLET take one PO tid PRN nausea METOCLOPRAMIDE HCL 95125239263 No Longer Active Checo Conklin MD Active DICLOFENAC SODIUM 75 MG ORAL TABLET DELAYED RELEASE 1 tablet by mouth twice daily PRN Knee pain DICLOFENAC SODIUM 56950964571 No Longer Active Checo Conklin MD Active LAMISIL 250 MG ORAL TABLET 1 po qd TERBINAFI NE HCL 65982419321 No Longer Active Checo Conklin MD Active REGLAN 10 MG ORAL TABLET 1 po TID PRN Nausea 3 METOCLOPRAMIDE HCL 00373536622 No Longer Active Checo Conklin MD Active CELEXA 20 MG ORAL TABLET 1 tablet by mouth daily 09/26 CITALOPRAM HYDROBROMIDE 62143932065 No Longer Active Checo Conklin MD Active AZITHROMYCIN 250 MG ORAL TABLET 2 po qd x 1 day, then 1 po q d x 4 days AZITHROMYCIN 68082528302 No Longer Active Checo Ortiz MD Active HYDROCODONE-ACETAMINOPHEN 5-325 MG ORAL TABLET 1 po q 6hr PRN Pa in HYDROCODONE-ACETAMINOPHEN 10014422712 No Longer Active Lenora Conklin MD Active PHENAZOPYRIDINE HCL 200 MG ORAL TABLET take 1 tab po TID for bladder pain PHENAZOPYRIDINE HCL 72294530982 No Longer Active Joe Conklin MD Active CIPRO 500 MG ORAL TABLET 1 tablet by mouth twice daily CIPROFLOXACIN HCL 49393860519 No Longer Active Dangelo Rangel MD Active HYDROCODONE-ACETAMINOPHEN 5-325 MG ORAL TABLET 1/2 to 1 po q 4 hours prn cough HYDROCODONE-ACETAMINOPHEN 87921458741 No Longer Activ candy Rangel MD Active BACTRIM DS 800-160 MG ORAL TABLET 1 po BID x 7 days 29/04/10 SULFAMETHOXAZOLE-TRIMETHOPRIM 52527223412 No Longer Active Checo Conklin MD Active PREDNISONE 20 MG ORAL TABLET 2 tabs daily for 3 days, 1 tab daily for 3 days, 1/2 tab daily for 2 days PREDNISONE 20972678060 No Longer Active Checo Conklin MD Active TRIAMCINOLONE ACETONIDE 0.1 % EXTERNAL OINTMENT Apply to affected areas TID for up to 2 weeks TRIAMCINOLONE ACETONIDE 86669780455 No Longer Active Checo Conklin MD Active CEFDINIR 300 MG ORAL CAPSULE by mouth twice a day 2013 CEFDINIR 94835040966 No Longer Active Dangelo Rangel MD Acti ve BUPROPION HCL ER (SMOKING DET) 150 MG ORAL TABLET EXTE NDED RELEASE 12 HOUR 1 a day for 1 week then 1 twice a day BUPROPION HCL (SMOKING DETER) 45319974418 No Longer Active Checo Conklin MD Active SIMVASTATIN 20 MG ORAL TABLET 1 po qd SIMVASTAT IN 55565092241 Active Checo Conklin MD Active CHANTIX STARTING MONTH KARTHIK 0.5 MG X 11 & 1 MG X 42 ORA L TABLET 0.5mg daily for 3 days, then 0.5mg BID for 4 days, then 1mg BID VARENICLINE TARTRATE 51590641665 No Longer Active Checo Conklin MD Activ e XANAX 0.5 MG ORAL TABLET 1 po BID PRN anxiety A LPRAZOLAM 14660435582 Active Checo Conklin MD Active CONCERTA 18 MG ORAL TABLET EXTENDED RELEASE 1 po q a.m. METHYLPHENIDATE HCL 90156924310 No Longer Active Checo Conklin MD Active AMBIEN 5 MG ORAL TABLET 1 po qHS PRN Insomnia Z OLPIDEM TARTRATE 19560658464 Active Checo Conklin MD Active TRAZODONE HCL 100 MG ORAL TABLET 0.5 to 1 po qHS PRN Insomnia 20 30/07/08 TRAZODONE HCL 13397887287 No Longer Active Checo Conklin MD Active FIORICET 325-50-40 MG TAB 1 tablet by mouth four times daily as needed [id number] 71508467555 No Longer Active Checo Conklin MD Active PHENERGAN CREAM* 25mg applied to wrist q6hr PRN Nausea PHENERGAN CREAM* No Longer Active Checo Conklin MD A ctive FLONASE 50 MCG/ACT NASAL SUSPENSION 1 spray each nostril am and hs FLUTICASONE PROPIONATE 24592559090 No Longer Active Checo Conklin MD Active ANTIPYRINE-BENZOCAINE 5.4-1.4 % OTIC SOLUTION 1-2 drops in affec yohannes ear BENZOCAINE-ANTIPYRINE 24759221473 No Longer Active Checo Conklin MD Active CEFDINIR 300 MG ORAL CAPSULE 1 po bid CEFDINIR 05813067889 No Longer Active Checo Conklin MD Active PREDNISONE 20 MG ORAL TABLET 2 tabs daily for 3 days, 1 tab daily for 3 days, 1/2 tab daily for 2 days PREDNISONE 14310891493 No Longer Active Checo Conklin MD Active AZITHROMYCIN 250 MG ORAL TABLET 2 po qd x 1 day, then 1 po q d x 4 days AZITHROMYCIN 38204282495 No Longer Active Checo Ortiz MD Active PREDNISONE 20 MG ORAL TABLET 2 tabs daily for 3 days, 1 tab daily for 3 days, 1/2 tab daily for 2 days PREDNISONE 44900610310 No Longer Active Checo Conklin MD Active ZITHROMAX Z-KARTHIK 250 MG ORAL TABLET 2 today, then 1 daily for 4 d ays AZITHROMYCIN 40430922571 No Longer Active Paul Hamlin MD Active FOCALIN XR 10 MG ORAL CAPSULE EXTENDED RELEASE 24 HOUR 1 po q a. m. DEXMETHYLPHENIDATE HCL 22984009808 No Longer Active Paul Hamlin MD Active PERCOCET 10-325 MG ORAL TABLET 1 tablet every 6 hours as needed for pain OXYCODONE-ACETAMINOPHEN 94745938535 No Longer Active Paul Hamlin MD Active LORTAB 5-500 MG ORAL TABLET 1/2 to 1 tablet by mouth e very 4 hours as needed for pain HYDROCODONE-ACETAMINOPHEN 90006886305 No Longer Active Checo Coknlin MD Active FOCALIN XR 15 MG ORAL CAPSULE EXTENDED RELEASE 24 HOUR 1 po q a. m. DEXMETHYLPHENIDATE HCL 81516086848 No Longer Active Checo Conklin MD Active ZOFRAN ODT 4 MG ORAL TABLET DISINTEGRATING 1 po q6hr PRN Nausea ONDANSETRON 85360072342 No Longer Active Checo Conklin MD Active PERCOCET 5-325 MG ORAL TABLET 1 tablet by mouth every 6 hour s as needed OXYCODONE-ACETAMINOPHEN 40915931018 No Longer Active Checo Conklin MD Active PYRIDIUM 200 MG ORAL TABLET take 1 tab po TID prn urinary pain. PHENAZOPYRIDINE HCL 83663201125 No Longer Active Checo Joshua Active FLUCONAZOLE 150 MG ORAL TABLET take 1 tab po qday once FLUCONAZOLE 52103752292 No Longer Active Dangelo Rangel MD Acti ve CIPRO 500 MG ORAL TABLET 1 tablet by mouth twice daily CIPROFLOXACIN HCL 60975132876 No Longer Active Dangelo Rangel MD Active PYRIDIUM 200 MG ORAL TABLET take 1 tab po TID prn urinary pain. PYRIDIUM 200 MG ORAL TABLET 0464123 PHENAZOPYRIDINE HCL Inactive PERCOCET 5-325 MG ORAL TABLET 1 tablet by mouth every 6 hour s as needed PERCOCET 5-325 MG ORAL TABLET 3617249 OXYCODONE-ACETAMINOPHEN Inactive ZOFRAN ODT 4 MG ORAL TABLET DISINTEGRATING 1 po q6hr PRN Nausea ZOFRAN ODT 4 MG ORAL TABLET DISINTEGRATING 767596 ONDAN SETRON Inactive FOCALIN XR 15 MG [...] for pain PERCOCET 10-325 MG ORAL TABLET 3017799 OXYCODONE-ACETAMI NOPHEN Inactive FOCALIN XR 10 MG ORAL CAPSULE EXTENDED RELEASE 24 HOUR 1 po q a. m. FOCALIN XR 10 MG ORAL CAPSULE EXTENDED RELEASE 24 HOUR DEXMETHYLPHENIDATE HCL Inactive CEFDINIR 300 MG ORAL CAPSULE 1 po bid CEFDINI R 300 MG ORAL CAPSULE 141796 CEFDINIR Inactive ANTIPYRINE-BENZOCAINE 5.4-1.4 % OTIC SOLUTION 1-2 drops in affec yohannes ear ANTIPYRINE-BENZOCAINE 5.4-1.4 % OTIC SOLUTION BENZOCAINE-ANTIPYRINE Inactive FLONASE 50 MCG/ACT NASAL SUSPENSION 1 spray each nostril am and hs FLONASE 50 MCG/ACT NASAL SUSPENSION 6966609 FLUTICASONE PROPIONATE I nactive PHENERGAN CREAM* 25mg applied to wrist q6hr PRN Nausea PHENERGAN CREAM* Inactive FIORICET 325-50-40 MG TAB 1 tablet by mouth four times daily as needed FIORICET 325-50-40 MG TAB ACETAMINOPHEN-C AFF-BUTALBITAL Inactive TRAZODONE HCL 100 MG ORAL TABLET 0.5 to 1 po qHS PRN Insomnia 20 30/07/08 TRAZODONE HCL 100 MG ORAL TABLET 341143 TRAZODONE HCL Inactive CONCERTA 18 MG ORAL [...] cough HYDROCODONE-ACETAMINOPHEN 5-325 MG ORAL TABLET 8 05968 HYDROCODONE-ACETAMINOPHEN Inactive PHENAZOPYRIDINE HCL 200 MG ORAL TABLET take 1 tab po TID for bladder pain PHENAZOPYRIDINE HCL 200 MG ORAL TABLET 4765892 PHENAZOPYRIDINE HCL Inactive HYDROCODONE-ACETAMINOPHEN 5-325 MG ORAL TABLET 1 po q 6hr PRN Pa in HYDROCODONE-ACETAMINOPHEN 5-325 MG ORAL TABLET 079064 HYDROCODONE-ACETAMINOPHEN Inactive CELEXA 20 MG ORAL TABLET 1 tablet by mouth daily 09/26 CELEXA 20 MG ORAL TABLET 057549 CITALOPRAM HYDROBROMIDE Inactive REGLAN 10 MG ORAL TABLET 1 po TID PRN Nausea 3 REGLAN 10 MG ORAL TABLET 710051 METOCLOPRAMIDE HCL Inactive LAMISIL 250 MG ORAL TABLET 1 po qd L AMISIL 250 MG ORAL TABLET 660538 TERBINAFINE HCL Inactive DICLOFENAC SODIUM 75 MG ORAL TABLET DELAYED RELEASE 1 tablet by mouth twice daily PRN Knee pain DICLOFENAC SODIUM 75 MG ORAL TABLET DELAYED RELEASE 392883 DICLOFENAC SODIUM Inactive METOCLOPRAMIDE HCL 10 MG ORAL TABLET take one PO tid PRN nausea METOCLOPRAMIDE HCL 10 MG ORAL TABLET 904689 METOCLOPRAM ZACH HCL Inactive TERBINAFINE HCL 250 MG ORAL TABLET take one table PO one time da moises TERBINAFINE HCL 250 MG ORAL TABLET 671605 TERBINAFINE H CL Inactive BUPROPION HCL ER [...] SICKNESS 25 M G ORAL TABLET CHEWABLE 429849 MECLIZINE HCL Inactive SUMATRIPTAN SUCCINATE 100 MG ORAL TABLET Take one PRN for migran e SUMATRIPTAN SUCCINATE 100 MG ORAL TABLET 097797 SUMATRIPTAN SUCCINATE Inactive COMPRO 25 MG RECTAL SUPPOSITORY insert or apply one garza ppository rectally as directed every 12 hours as needed for nausea COMPRO 25 MG RECTAL SUPPOSITORY 921585 PROCHLORPERAZINE Inactive ONDANSETRON 8 MG ORAL TABLET DISINTEGRATING place one tablet on tongue and allow to dissolve every 6 hours as needed for vomitting ONDANSETRON 8 MG ORAL TABLET DISINTEGRATING 773668 ONDANSETRON Inactive HYDROCODONE-ACETAMINOPHEN 5-325 MG ORAL TABLET 0.5 to 1 tab by mouth every 6 hours as needed HYDROCODONE-ACETAMIN OPHEN 5-325 MG ORAL TABLET 449738 HYDROCODONE-ACETAMINOPHEN Inactive BACTRIM DS 800-160 MG ORAL TABLET 1 tab by mouth twice daily 201 11/23/03 BACTRIM DS 800-160 MG ORAL TABLET 852975 TRIMETHOPRIM-SULFAMETHOXAZOLE Inactive DIFLUCAN 150 MG ORAL TABLET 1 tablet by mouth if neede d, hold until symptoms start DIFLUCAN 150 MG ORAL TABLET 391441 FLUCONAZ OLE Inactive IBUPROFEN 800 MG ORAL TABLET 1 tab every 8 hours with food 03/20 IBUPROFEN 800 MG ORAL TABLET 319049 IBUPROFEN Krupa ctive HYDROCODONE-ACETAMINOPHEN 5-325 MG ORAL TABLET 1 tab b y mouth every 6 hours as needed HYDROCODONE-ACETAMINOPHEN 5-325 MG ORAL TABLET 566782 HYDROCODONE-ACETAMINOPHEN Inactive BACTROBAN 2 % EXTERNAL CREAM Apply to affected area BID for up to 10 days BACTROBAN 2 % EXTERNAL CREAM 691013 MUPIROCIN CA LCIUM Inactive MAGNESIUM CITRATE 1.745 GM/30ML ORAL SOLUTION 150ml po BID P RN Constipation MAGNESIUM CITRATE 1.745 GM/30ML ORAL SOLUTION 10 84508 MAGNESIUM CITRATE Inactive DIFLUCAN 150 MG ORAL TABLET 1 tablet by mouth qod 2015 DIFLUCAN 150 MG ORAL TABLET 946236 FLUCONAZOLE Inactive BACTRIM DS 800-160 MG ORAL TABLET 1 tab by mouth twice daily 201 12/19/26 BACTRIM DS 800-160 MG ORAL TABLET 666686 TRIMETHOPRIM-SULFAMETHOXAZOLE Inactive CLARITIN 10 MG ORAL TABLET 1 tablet by mouth daily as needed for allergies CLARITIN 10 MG ORAL TABLET 952685 LORATADINE I nactive FLUTICASONE PROPIONATE 50 MCG/ACT NASAL SUSPENSION 2 s prays/nostril qd PRN Congestion/Allergies FLUTICASONE PROPION ATE 50 MCG/ACT NASAL SUSPENSION 2989723 FLUTICASONE PROPIONATE Inactive MIRALAX ORAL POWDER 8.5 to 17g po qd PRN Constipation MIRALAX ORAL POWDER 009800 POLYETHYLENE GLYCOL 3350 Inactive IBUPROFEN 800 MG ORAL TABLET 1 tab every 8 hours as needed for p ain IBUPROFEN 800 MG ORAL TABLET 239649 IBUPROFEN Krupa ctive HYDROCHLOROTHIAZIDE 12.5 MG ORAL CAPSULE 1 po qd PRN Edema 01/10 HYDROCHLOROTHIAZIDE 12.5 MG ORAL CAPSULE 887521 HYDROCH LOROTHIAZIDE Inactive CIPRO 500 MG ORAL TABLET 1 tablet by mouth twice daily CIPRO 500 MG ORAL TABLET 297771 CIPROFLOXACIN HCL Inactive FLUCONAZOLE 150 MG ORAL TABLET take 1 tab po qday once FLUCONAZOLE 150 MG ORAL TABLET 238389 FLUCONAZOLE Inactive ZITHROMAX Z-KARTHIK 250 MG ORAL TABLET 2 today, then 1 daily for 4 d ays ZITHROMAX Z-KARTHIK 250 MG ORAL TABLET 728295 AZITHROMYCIN Inactive PREDNISONE 20 MG ORAL TABLET 2 tabs daily for 3 days, 1 tab daily for 3 days, 1/2 tab daily for 2 days PREDNISONE 20 MG ORAL T ABLET 013635 PREDNISONE Inactive AZITHROMYCIN 250 MG ORAL TABLET 2 po qd x 1 day, then 1 po q d x 4 days AZITHROMYCIN 250 MG ORAL TABLET 232251 AZITHROMY SPARKLE Inactive PREDNISONE 20 MG ORAL TABLET 2 tabs daily for 3 days, 1 tab daily for 3 days, 1/2 tab daily for 2 days PREDNISONE 20 MG ORAL TABLET 702104 PREDNISONE Inactive CEFDINIR 300 MG ORAL CAPSULE by mouth twice a day 2013 CEFDINIR 300 MG ORAL CAPSULE 440879 CEFDINIR Inactive TRIAMCINOLONE ACETONIDE 0.1 % EXTERNAL OINTMENT Apply to affected areas TID for up to 2 weeks TRIAMCINOLONE ACETON ZACH 0.1 % EXTERNAL OINTMENT 1828212 TRIAMCINOLONE ACETONIDE Inactive PREDNISONE 20 MG ORAL TABLET 2 tabs daily for 3 days, 1 tab daily for 3 days, 1/2 tab daily for 2 days PREDNISONE 20 MG ORAL T ABLET 199592 PREDNISONE Inactive BACTRIM DS 800-160 MG ORAL TABLET 1 po BID x 7 days 29/04/10 BACTRIM DS 800-160 MG ORAL TABLET 978916 SULFAMETHOXAZOLE-TRIMETHOP RIM Inactive CIPRO 500 MG ORAL TABLET 1 tablet by mouth twice daily CIPRO 500 MG ORAL TABLET 710432 CIPROFLOXACIN HCL Inactive AZITHROMYCIN 250 MG ORAL TABLET 2 po qd x 1 day, then 1 po q d x 4 days AZITHROMYCIN 250 MG ORAL TABLET 770585 AZITHROMY SPARKLE Inactive FLAGYL 500 MG ORAL TABLET 1 tablet by mouth bid 04/13 FLAGYL 500 MG ORAL TABLET 236277 METRONIDAZOLE Inactive AZITHROMYCIN 250 MG ORAL TABLET 2 po qd x 1 day, then 1 po q d x 4 days AZITHROMYCIN 250 MG ORAL TABLET 035941 AZITHROMY SPARKLE Inactive AMOXICILLIN 500 MG ORAL CAPSULE 2 po BID x 10 days 201 01/15/27 AMOXICILLIN 500 MG ORAL CAPSULE 788410 AMOXICILLIN Inactive AMOXICILLIN 500 MG ORAL CAPSULE 2 po BID x 14 days for H. Pylori AMOXICILLIN 500 MG ORAL CAPSULE 057476 AMOXICILLIN Inactive CLARITHROMYCIN 500 MG ORAL TABLET 1 tab po BID x 14 days CLARITHROMYCIN 500 MG ORAL TABLET 202992 CLARITHROMYCIN Inacti ve FLAGYL 500 MG ORAL TABLET 1 tablet by mouth bid 08/29 FLAGYL 500 MG ORAL TABLET 994762 METRONIDAZOLE Inactive PROTONIX 40 MG ORAL TABLET DELAYED RELEASE 1 pill by m outh daily, for acid reflux PROTONIX 40 MG ORAL TABLET DELAYED RELEAS E 106819 PANTOPRAZOLE SODIUM Inactive Immunizations Vaccine Administration Date [...] ... - Chemistry sodium, serum 138 mmol/L 370-940 9284/06/27 carbon dioxide, venous blood 30.3 mmol/L 21.0-32 [...] ... - Chemistry sodium, serum 139 mmol/L 522-428 5760/11/28 carbon dioxide, venous blood 26.0 mmol/L 21.0-32 [...] 5.0-8.5 Encounters Code Encounter Date Provider Facility CPT-73815 Level 3 Est. Patient 16:46:51 CDT Thomas reynolds DO [facility] CPT-01850 12100-Wpt Vst-Est Level III 14:40:49 CDT Paul Hamlin MD [facility] CPT-15221 Level 4 Est. Patient 11:08:43 CDT Checo Conklin MD [facility]-65093 [id number] Vst-Est Level III 09:37:41 CDT Dangelo Rangel MD [facility] CPT-08581 Level 4 Est. Patient 08:57:51 INDUSTRIAL CONTROLLER Checo Conklin MD [facility] CPT-06616 Level 3 Est. Patient 11:24:55 INDUSTRIAL CONTROLLER Efren almendarez [facility] CPT-18948 Level 3 Est. Patient 13:05:44 CDT Paul Hamlin MD [facility] CPT-62289 Level 3 Est. Patient 11:29:55 CDT Checo Conklin MD [facility] CPT-93769 Level 4 Est. Patient 11:08:12 INDUSTRIAL CONTROLLER Checo Conklin MD [facility] CPT-00327 Level 4 Est. Patient 16:06:48 INDUSTRIAL CONTROLLER Checo Conklin MD [facility] CPT-94306 Level 3 Est. Patient 09:11:49 CDT Efren almendarez [facility] CPT-56215 Level 2 Est. Patient 19:53:27 CDT Tanner hill MD [facility] CPT-21404 Level 3 Est. Patient 09:15:34 CDT Efren almendarez [facility]-99829 Level 3 Est. Patient 11:28:51 INDUSTRIAL CONTROLLER Efren almendarez APRN [facility] CPT-94215 Level 4 Est. Patient 13:55:46 INDUSTRIAL CONTROLLER Checo Conklin MD [facility] CPT-36495 Level 4 Est. Patient 17:10:53 CDT Checo Conklin MD [facility] CPT-45293 Level 3 Est. Patient 15:56:22 CDT Checo Conklin MD [facility] CPT-32055 Level 3 Est. Patient 15:29:07 CDT Checo Conklin MD [facility] CPT-52539 Level 3 Est. Patient 14:38:41 CDT Checo Conklin MD [facility] CPT-98153 Level 3 Est. Patient 15:22:03 INDUSTRIAL CONTROLLER Thomas reynolds DO [facility] CPT-58482 Level 3 Est. Patient 13:34:17 INDUSTRIAL CONTROLLER Checo Conklin MD [facility] CPT-18704 Level 3 Est. Patient 12:29:32 CDT Dangelo arroyo MD [facility] CPT-86574 Level 3 Est. Patient 16:53:02 CDT Checo Conklin MD [facility] CPT-29361 Level 3 Est. Patient 16:37:13 CDT Checo Conklin MD [facility] CPT-99243 Level 3 Est. Patient 16:16:59 CDT Paul Hamlin MD [facility] CPT-05313 Level 3 Est. Patient 14:20:13 CDT Dangelo arroyo MD [facility] CPT-76887 Level 4 Est. Patient 11:29:33 CDT Checo Conklin MD [facility] CPT-22404 Level 3 Est. Patient 17:08:31 CDT Checo Conklin MD [facility] CPT-99453 Level 3 Est. Patient 16:50:42 INDUSTRIAL CONTROLLER Checo Conklin MD [facility] CPT-49583 Level 4 Est. Patient 09:26:08 INDUSTRIAL CONTROLLER Checo Conklin MD [facility] CPT-41142 Level 3 Est. Patient 11:37:10 CDT Checo Conklin MD [facility] CPT-25391 Level 4 Est. Patient 14:07:38 CDT Checo Conklin MD [facility] CPT-52803 Level 3 Est. Patient 09:54:41 CDT Checo Conklin MD [facility] CPT-32120 Level 3 Est. Patient 11:10:54 CDT Paul Hamlin MD [facility] CPT-57015 Level 3 Est. Patient 14:16:56 INDUSTRIAL CONTROLLER Checo Conklin MD [facility] CPT-27047 Level 3 Est. Patient 11:04:11 INDUSTRIAL CONTROLLER Checo Conklin MD [facility] CPT-06839 Level 3 Est. Patient 17:09:26 CDT Dangelo arroyo MD [facility] CPT-33669 Level 3 Est. Patient 16:54:37 CDT Checo Conklin MD [facility] Procedures Code Procedure Name Date Entry Date Standard Desc ription CPT-67121 Abx/Therapy Injection 09:52:15 CDT CPT-74401 Abx/Therapy Injection 18:17:48 CDT CPT-J2550 Phenergan 25 mg (Promethazine) 16:48:23 CDT CPT-J1885 Toradol 60 mg 16:48:23 CDT CPT-17700 Wrist, right, comp 3V - XRAY USE ONLY 09:24:31 CDT CPT-37616 Abd compl w upright - XRAY USE ONLY 1 1:36:54 INDUSTRIAL CONTROLLER CPT-93444 UA w micro - LAB USE ONLY 17:06:46 CDT 2015 CPT-29592 BHCG Qual - LAB USE ONLY 17:06:46 CDT 05/06 CPT-24695 CMP - LAB USE ONLY 17:06:46 CDT CPT-07950 CBC with Diff - LAB USE ONLY 17:06:45 CDT 2 CPT-86796 Venipuncture Draw Fee 17:06:45 CDT CPT-LR Lesion Removal 19:53:27 CDT CPT-OV Office Visit 11:31:28 CDT CPT-12303 Tubersol 09:39:29 CDT CPT-J2550 Phenergan 25 mg (Promethazine) 13:59:02 INDUSTRIAL CONTROLLER CPT-J1885 Toradol 60 mg (Ketorolac) 13:59:02 INDUSTRIAL CONTROLLER 2012
--- OUTSIDE RECORDS SUMMARY | 2019-09-29 01:19 | XMS REPORT | Clinical Summary ---
Author Author Admin, Bethany Gonzales Organization [employer] Address Unknown Phone Unavailable Allergies, Adverse Reactions, [...] lower quadrant HEADACHE, TENSION 307.81 Resolved Checo Conlkin MD Tension headache PHARYNGITIS 462 Resolved Checo [...] UTI ICD-599.0 Inactive Checo Conklin MD 2013 FH BREAST CANCER ICD-V16.3 Inactive Checo Joshua ABDOMINAL PAIN RIGHT LOWER QUADRANT ICD-789.03 Inactive Checo Conklin MD PHARYNGITIS ICD-462 Inactive Checo Conklin MD HEADACHE, TENSION ICD-307.81 Inactive Checo Conklin MD OTITIS MEDIA-RIGHT ICD-382.9 Ozzy Conklin MD Insomnia ICD-780.52 Inactive Checo Joshua Onychomycosis, toenails ICD-110.1 Ozzy Conklin MD Breast mass, right ICD-611.72 Inactive Checo Conklin MD Mastalgia ICD-611.71 Inactive Checo Joshua Hypoglycemia, unspecified ICD-251.2 Inactive Checo Conklin MD Insect bite ICD-919.4 Inactive Checo Conklin MD Carbuncle/furuncle NOS ICD-680.9 Inactive Hilaria Conklin MD BRONCHITIS, ACUTE ICD-466.0 Inactive Checo gallagher MD Abdominal pain ICD-789.00 Inactive Checo ngo MD Knee pain, right ICD-719.46 Inactive Checo gallagher MD Vertigo ICD-780.4 Inactive Checo Conklin MD 2014 Abscess, skin ICD-682.9 Inactive Checo richey MD Bacterial vaginosis ICD-616.10 Inactive Lenora Conklin MD Sinusitis ICD-461.9 Inactive Checo Conklin MD Pharyngitis ICD-462 Inactive Checo Conklin MD Pedal edema ICD-782.3 Inactive Checo [...] 25.0-25.9 Adult Inac tive Paul Hamlin MD Sinusitis, acute ICD-461.9 Inactive Checo Ortiz MD Repeated falls ICD-781.99 Inactive Checo ngo MD Medication List Medication Instructions Start Date Stop Date Generic Name NDC Status Provider Patient Instruction KLOR-CON 10 10 MEQ ORAL TABLET EXTENDED RELEASE 1 daily with furosemide POTASSIUM CHLORIDE 13048077561 Active Paul Hamlin MD Active FUROSEMIDE 20 MG ORAL TABLET 1 daily for swelling FUROSEMIDE 12821238237 Active Paul Hamlin MD Active HYDROCHLOROTHIAZIDE 12.5 MG ORAL CAPSULE 1 po qd PRN Edema 01/10 HYDROCHLOROTHIAZIDE 76616004469 No Longer Active Paul Hamlin MD Active IBUPROFEN 800 MG ORAL TABLET 1 tab every 8 hours as needed for p ain IBUPROFEN 15423895945 No Longer Active Paul Hamlin MD Active PAROXETINE HCL 40 MG ORAL TABLET 1 po qd PAR OXETINE HCL 69416031382 Active Checo Conklin MD Active MIRALAX ORAL POWDER 8.5 to 17g po qd PRN Constipation POLYETHYLENE GLYCOL 3350 12379775157 No Longer Active Checo Conklin MD Active PROTONIX 40 MG ORAL TABLET DELAYED RELEASE 1 pill by m outh daily, for acid reflux PANTOPRAZOLE SODIUM 14887714802 No Longer Activ e Corry Méndez LPN Active FLAGYL 500 MG ORAL TABLET 1 tablet by mouth bid 08/29 METRONIDAZOLE 75214226866 No Longer Active Corry Méndez LPN Active CLARITHROMYCIN 500 MG ORAL TABLET 1 tab po BID x 14 days CLARITHROMYCIN 71901499427 No Longer Active Corry Méndez LPN Active AMOXICILLIN 500 MG ORAL CAPSULE 2 po BID x 14 days for H. Pylori AMOXICILLIN 59116683477 No Longer Active Corry Méndez LPN Active FLUTICASONE PROPIONATE 50 MCG/ACT NASAL SUSPENSION 2 s prays/nostril qd PRN Congestion/Allergies FLUTICASONE PROPIONATE 2393269038 9 No Longer Active Checo Conklin MD Active AMOXICILLIN 500 MG ORAL CAPSULE 2 po BID x 10 days 201 01/15/27 AMOXICILLIN 46748666665 No Longer Active Checo Conklin MD Activ e CLARITIN 10 MG ORAL TABLET 1 tablet by mouth daily as needed for allergies LORATADINE 60027991283 No Longer Active Checo Ortiz MD Active BACTRIM DS 800-160 MG ORAL TABLET 1 tab by mouth twice daily 201 12/19/26 TRIMETHOPRIM-SULFAMETHOXAZOLE 66472040692 No Longer Active Ragini Carrillo MD Active DIFLUCAN 150 MG ORAL TABLET 1 tablet by mouth qod 2015 FLUCONAZOLE 99323947745 No Longer Active Efren Medel VEGETABLE PICKER Act mike AZITHROMYCIN 250 MG ORAL TABLET 2 po qd x 1 day, then 1 po q d x 4 days AZITHROMYCIN 78428900633 No Longer Active Efren flores VEGETABLE PICKER Active FLAGYL 500 MG ORAL TABLET 1 tablet by mouth bid 04/13 METRONIDAZOLE 84795511577 No Longer Active Checo Conklin MD Acti ve FOCALIN XR 10 MG ORAL CAPSULE EXTENDED RELEASE 24 HOUR 1 po q a.m. DEXMETHYLPHENIDATE HCL 30247253511 Active Checo Conklin MD Active MAGNESIUM CITRATE 1.745 GM/30ML ORAL SOLUTION 150ml po BID P RN Constipation MAGNESIUM CITRATE 88245800613 No Longer Active Checo Conklin MD Active BACTROBAN 2 % EXTERNAL CREAM Apply to affected area BID for up to 10 days MUPIROCIN CALCIUM 10937648757 No Longer Active Checo Conklin MD Active HYDROCODONE-ACETAMINOPHEN 5-325 MG ORAL TABLET 1 tab b y mouth every 6 hours as needed HYDROCODONE-ACETAMINOPHEN 37474513036 No Longer Active Checo Conklin MD Active IBUPROFEN 800 MG ORAL TABLET 1 tab every 8 hours with food 03/20 IBUPROFEN 81775803365 No Longer Active Checo Conklin MD Active DIFLUCAN 150 MG ORAL TABLET 1 tablet by mouth if neede d, hold until symptoms start FLUCONAZOLE 09390683569 No Longer Active Checo Conklin MD Active BACTRIM DS 800-160 MG ORAL TABLET 1 tab by mouth twice daily 201 11/23/03 TRIMETHOPRIM-SULFAMETHOXAZOLE 78570805428 No Longer Active K bernice Méndez LPN Active HYDROCODONE-ACETAMINOPHEN 5-325 MG ORAL TABLET 0.5 to 1 tab by mouth every 6 hours as needed HYDROCODONE-ACETAMINOPHEN 45939512691 No Longer Active Checo Conklin MD Active ONDANSETRON 8 MG ORAL TABLET DISINTEGRATING place one tablet on tongue and allow to dissolve every 6 hours as needed for vomitting ONDANSETRON 57222200863 No Longer Active Checo Conklin MD Activ e COMPRO 25 MG RECTAL SUPPOSITORY insert or apply one garza ppository rectally as directed every 12 hours as needed for nausea PROCHLORPERAZINE 15998832484 No Longer Active Checo Conklin MD A ctive SUMATRIPTAN SUCCINATE 100 MG ORAL TABLET Take one PRN for migran e SUMATRIPTAN SUCCINATE 39647602694 No Longer Active Checo Conklin MD Active TRAVEL SICKNESS 25 MG ORAL TABLET CHEWABLE chew and sw allow one tablet every 6 hours as needed MECLIZINE HCL 25841452370 No Longer A ctive Checo Conklin MD Active BUPROPION HCL ER (SR) 100 MG ORAL TABLET EXTENDED RELE ASE 12 HOUR take one tablet by mouth one time daily for one week then take 1 two times daily BUPROPION HCL 38811526817 No Longer Active Checo gallagher MD Active TERBINAFINE HCL 250 MG ORAL TABLET take one table PO one time da moises TERBINAFINE HCL 45809475205 No Longer Active Checo Conklin MD Active METOCLOPRAMIDE HCL 10 MG ORAL TABLET take one PO tid PRN nausea METOCLOPRAMIDE HCL 21762298453 No Longer Active Checo Conklin MD Active DICLOFENAC SODIUM 75 MG ORAL TABLET DELAYED RELEASE 1 tablet by mouth twice daily PRN Knee pain DICLOFENAC SODIUM 07273083402 No Longer Active Checo Conklni MD Active LAMISIL 250 MG ORAL TABLET 1 po qd TERBINAFI NE HCL 62419167873 No Longer Active Checo Conklin MD Active REGLAN 10 MG ORAL TABLET 1 po TID PRN Nausea 3 METOCLOPRAMIDE HCL 05168881648 No Longer Active Checo Conklin MD Active CELEXA 20 MG ORAL TABLET 1 tablet by mouth daily 09/26 CITALOPRAM HYDROBROMIDE 53816681686 No Longer Active Checo Conklin MD Active AZITHROMYCIN 250 MG ORAL TABLET 2 po qd x 1 day, then 1 po q d x 4 days AZITHROMYCIN 18754329908 No Longer Active Checo Ortiz MD Active HYDROCODONE-ACETAMINOPHEN 5-325 MG ORAL TABLET 1 po q 6hr PRN Pa in HYDROCODONE-ACETAMINOPHEN 73437878624 No Longer Active Lenora Conklin MD Active PHENAZOPYRIDINE HCL 200 MG ORAL TABLET take 1 tab po TID for bladder pain PHENAZOPYRIDINE HCL 81284114865 No Longer Active Joe Conklin MD Active CIPRO 500 MG ORAL TABLET 1 tablet by mouth twice daily CIPROFLOXACIN HCL 01467037393 No Longer Active Dangelo Rangel MD Active HYDROCODONE-ACETAMINOPHEN 5-325 MG ORAL TABLET 1/2 to 1 po q 4 hours prn cough HYDROCODONE-ACETAMINOPHEN 05633648034 No Longer Activ candy Rangel MD Active BACTRIM DS 800-160 MG ORAL TABLET 1 po BID x 7 days 29/04/10 SULFAMETHOXAZOLE-TRIMETHOPRIM 03003616693 No Longer Active Checo Conklin MD Active PREDNISONE 20 MG ORAL TABLET 2 tabs daily for 3 days, 1 tab daily for 3 days, 1/2 tab daily for 2 days PREDNISONE 65515866393 No Longer Active Checo Conklin MD Active TRIAMCINOLONE ACETONIDE 0.1 % EXTERNAL OINTMENT Apply to affected areas TID for up to 2 weeks TRIAMCINOLONE ACETONIDE 03721581244 No Longer Active Checo Conklin MD Active CEFDINIR 300 MG ORAL CAPSULE by mouth twice a day 2013 CEFDINIR 40992343278 No Longer Active Dangelo Rangel MD Acti ve BUPROPION HCL ER (SMOKING DET) 150 MG ORAL TABLET EXTE NDED RELEASE 12 HOUR 1 a day for 1 week then 1 twice a day BUPROPION HCL (SMOKING DETER) 70010122979 No Longer Active Checo Conklin MD Active SIMVASTATIN 20 MG ORAL TABLET 1 po qd SIMVASTAT IN 89785662953 Active Checo Conklin MD Active CHANTIX STARTING MONTH KARTHIK 0.5 MG X 11 & 1 MG X 42 ORA L TABLET 0.5mg daily for 3 days, then 0.5mg BID for 4 days, then 1mg BID VARENICLINE TARTRATE 82700357906 No Longer Active Checo Conklin MD Activ e XANAX 0.5 MG ORAL TABLET 1 po BID PRN anxiety A LPRAZOLAM 31116074802 Active Checo Conklin MD Active CONCERTA 18 MG ORAL TABLET EXTENDED RELEASE 1 po q a.m. METHYLPHENIDATE HCL 79707708550 No Longer Active Checo Conklin MD Active AMBIEN 5 MG ORAL TABLET 1 po qHS PRN Insomnia Z OLPIDEM TARTRATE 02945702589 Active Checo Conklin MD Active TRAZODONE HCL 100 MG ORAL TABLET 0.5 to 1 po qHS PRN Insomnia 20 30/07/08 TRAZODONE HCL 81354707111 No Longer Active Checo Conklin MD Active FIORICET 325-50-40 MG TAB 1 tablet by mouth four times daily as needed [id number] 19302497629 No Longer Active Checo Conklin MD Active PHENERGAN CREAM* 25mg applied to wrist q6hr PRN Nausea PHENERGAN CREAM* No Longer Active Checo Conklin MD A ctive FLONASE 50 MCG/ACT NASAL SUSPENSION 1 spray each nostril am and hs FLUTICASONE PROPIONATE 74922834897 No Longer Active Checo Conklin MD Active ANTIPYRINE-BENZOCAINE 5.4-1.4 % OTIC SOLUTION 1-2 drops in affec yohannes ear BENZOCAINE-ANTIPYRINE 49052789984 No Longer Active Checo Conklin MD Active CEFDINIR 300 MG ORAL CAPSULE 1 po bid CEFDINIR 33962144577 No Longer Active Checo Conklin MD Active PREDNISONE 20 MG ORAL TABLET 2 tabs daily for 3 days, 1 tab daily for 3 days, 1/2 tab daily for 2 days PREDNISONE 17812828071 No Longer Active Checo Conklin MD Active AZITHROMYCIN 250 MG ORAL TABLET 2 po qd x 1 day, then 1 po q d x 4 days AZITHROMYCIN 43073136173 No Longer Active Checo Ortiz MD Active PREDNISONE 20 MG ORAL TABLET 2 tabs daily for 3 days, 1 tab daily for 3 days, 1/2 tab daily for 2 days PREDNISONE 27625776866 No Longer Active Checo Conklin MD Active ZITHROMAX Z-KARTHIK 250 MG ORAL TABLET 2 today, then 1 daily for 4 d ays AZITHROMYCIN 49711724510 No Longer Active Paul Hamlin MD Active FOCALIN XR 10 MG ORAL CAPSULE EXTENDED RELEASE 24 HOUR 1 po q a. m. DEXMETHYLPHENIDATE HCL 12275707701 No Longer Active Paul Hamlin MD Active PERCOCET 10-325 MG ORAL TABLET 1 tablet every 6 hours as needed for pain OXYCODONE-ACETAMINOPHEN 93048958566 No Longer Active Paul Hamlin MD Active LORTAB 5-500 MG ORAL TABLET 1/2 to 1 tablet by mouth e very 4 hours as needed for pain HYDROCODONE-ACETAMINOPHEN 49879503180 No Longer Active Checo Conklin MD Active FOCALIN XR 15 MG ORAL CAPSULE EXTENDED RELEASE 24 HOUR 1 po q a. m. DEXMETHYLPHENIDATE HCL 58500548163 No Longer Active Checo Conklin MD Active ZOFRAN ODT 4 MG ORAL TABLET DISINTEGRATING 1 po q6hr PRN Nausea ONDANSETRON 02106135002 No Longer Active Checo Conklin MD Active PERCOCET 5-325 MG ORAL TABLET 1 tablet by mouth every 6 hour s as needed OXYCODONE-ACETAMINOPHEN 38839973289 No Longer Active Checo Conklin MD Active PYRIDIUM 200 MG ORAL TABLET take 1 tab po TID prn urinary pain. PHENAZOPYRIDINE HCL 35085261845 No Longer Active Checo Joshua Active FLUCONAZOLE 150 MG ORAL TABLET take 1 tab po qday once FLUCONAZOLE 63729213713 No Longer Active Dangelo Rangel MD Acti ve CIPRO 500 MG ORAL TABLET 1 tablet by mouth twice daily CIPROFLOXACIN HCL 77801240716 No Longer Active Dangelo Rangel MD Active PYRIDIUM 200 MG ORAL TABLET take 1 tab po TID prn urinary pain. PYRIDIUM 200 MG ORAL TABLET 0280012 PHENAZOPYRIDINE HCL Inactive PERCOCET 5-325 MG ORAL TABLET 1 tablet by mouth every 6 hour s as needed PERCOCET 5-325 MG ORAL TABLET 7443180 OXYCODONE-ACETAMINOPHEN Inactive ZOFRAN ODT 4 MG ORAL TABLET DISINTEGRATING 1 po q6hr PRN Nausea ZOFRAN ODT 4 MG ORAL TABLET DISINTEGRATING 446593 ONDAN SETRON Inactive FOCALIN XR 15 MG [...] for pain PERCOCET 10-325 MG ORAL TABLET 1129494 OXYCODONE-ACETAMI NOPHEN Inactive FOCALIN XR 10 MG ORAL CAPSULE EXTENDED RELEASE 24 HOUR 1 po q a. m. FOCALIN XR 10 MG ORAL CAPSULE EXTENDED RELEASE 24 HOUR DEXMETHYLPHENIDATE HCL Inactive CEFDINIR 300 MG ORAL CAPSULE 1 po bid CEFDINI R 300 MG ORAL CAPSULE 463464 CEFDINIR Inactive ANTIPYRINE-BENZOCAINE 5.4-1.4 % OTIC SOLUTION 1-2 drops in affec yohannes ear ANTIPYRINE-BENZOCAINE 5.4-1.4 % OTIC SOLUTION BENZOCAINE-ANTIPYRINE Inactive FLONASE 50 MCG/ACT NASAL SUSPENSION 1 spray each nostril am and hs FLONASE 50 MCG/ACT NASAL SUSPENSION 7778712 FLUTICASONE PROPIONATE I nactive PHENERGAN CREAM* 25mg applied to wrist q6hr PRN Nausea PHENERGAN CREAM* Inactive FIORICET 325-50-40 MG TAB 1 tablet by mouth four times daily as needed FIORICET 325-50-40 MG TAB ACETAMINOPHEN-C AFF-BUTALBITAL Inactive TRAZODONE HCL 100 MG ORAL TABLET 0.5 to 1 po qHS PRN Insomnia 20 30/07/08 TRAZODONE HCL 100 MG ORAL TABLET 016038 TRAZODONE HCL Inactive CONCERTA 18 MG ORAL [...] cough HYDROCODONE-ACETAMINOPHEN 5-325 MG ORAL TABLET 8 27739 HYDROCODONE-ACETAMINOPHEN Inactive PHENAZOPYRIDINE HCL 200 MG ORAL TABLET take 1 tab po TID for bladder pain PHENAZOPYRIDINE HCL 200 MG ORAL TABLET 1911344 PHENAZOPYRIDINE HCL Inactive HYDROCODONE-ACETAMINOPHEN 5-325 MG ORAL TABLET 1 po q 6hr PRN Pa in HYDROCODONE-ACETAMINOPHEN 5-325 MG ORAL TABLET 177622 HYDROCODONE-ACETAMINOPHEN Inactive CELEXA 20 MG ORAL TABLET 1 tablet by mouth daily 09/26 CELEXA 20 MG ORAL TABLET 658744 CITALOPRAM HYDROBROMIDE Inactive REGLAN 10 MG ORAL TABLET 1 po TID PRN Nausea 3 REGLAN 10 MG ORAL TABLET 481183 METOCLOPRAMIDE HCL Inactive LAMISIL 250 MG ORAL TABLET 1 po qd L AMISIL 250 MG ORAL TABLET 112249 TERBINAFINE HCL Inactive DICLOFENAC SODIUM 75 MG ORAL TABLET DELAYED RELEASE 1 tablet by mouth twice daily PRN Knee pain DICLOFENAC SODIUM 75 MG ORAL TABLET DELAYED RELEASE 161092 DICLOFENAC SODIUM Inactive METOCLOPRAMIDE HCL 10 MG ORAL TABLET take one PO tid PRN nausea METOCLOPRAMIDE HCL 10 MG ORAL TABLET 362298 METOCLOPRAM ZACH HCL Inactive TERBINAFINE HCL 250 MG ORAL TABLET take one table PO one time da moises TERBINAFINE HCL 250 MG ORAL TABLET 575617 TERBINAFINE H CL Inactive BUPROPION HCL ER [...] SICKNESS 25 M G ORAL TABLET CHEWABLE 399685 MECLIZINE HCL Inactive SUMATRIPTAN SUCCINATE 100 MG ORAL TABLET Take one PRN for migran e SUMATRIPTAN SUCCINATE 100 MG ORAL TABLET 320839 SUMATRIPTAN SUCCINATE Inactive COMPRO 25 MG RECTAL SUPPOSITORY insert or apply one garza ppository rectally as directed every 12 hours as needed for nausea COMPRO 25 MG RECTAL SUPPOSITORY 736064 PROCHLORPERAZINE Inactive ONDANSETRON 8 MG ORAL TABLET DISINTEGRATING place one tablet on tongue and allow to dissolve every 6 hours as needed for vomitting ONDANSETRON 8 MG ORAL TABLET DISINTEGRATING 214175 ONDANSETRON Inactive HYDROCODONE-ACETAMINOPHEN 5-325 MG ORAL TABLET 0.5 to 1 tab by mouth every 6 hours as needed HYDROCODONE-ACETAMIN OPHEN 5-325 MG ORAL TABLET 977816 HYDROCODONE-ACETAMINOPHEN Inactive BACTRIM DS 800-160 MG ORAL TABLET 1 tab by mouth twice daily 201 11/23/03 BACTRIM DS 800-160 MG ORAL TABLET 838255 TRIMETHOPRIM-SULFAMETHOXAZOLE Inactive DIFLUCAN 150 MG ORAL TABLET 1 tablet by mouth if neede d, hold until symptoms start DIFLUCAN 150 MG ORAL TABLET 443237 FLUCONAZ OLE Inactive IBUPROFEN 800 MG ORAL TABLET 1 tab every 8 hours with food 03/20 IBUPROFEN 800 MG ORAL TABLET 444200 IBUPROFEN Krupa ctive HYDROCODONE-ACETAMINOPHEN 5-325 MG ORAL TABLET 1 tab b y mouth every 6 hours as needed HYDROCODONE-ACETAMINOPHEN 5-325 MG ORAL TABLET 722129 HYDROCODONE-ACETAMINOPHEN Inactive BACTROBAN 2 % EXTERNAL CREAM Apply to affected area BID for up to 10 days BACTROBAN 2 % EXTERNAL CREAM 361680 MUPIROCIN CA LCIUM Inactive MAGNESIUM CITRATE 1.745 GM/30ML ORAL SOLUTION 150ml po BID P RN Constipation MAGNESIUM CITRATE 1.745 GM/30ML ORAL SOLUTION 10 90511 MAGNESIUM CITRATE Inactive DIFLUCAN 150 MG ORAL TABLET 1 tablet by mouth qod 2015 DIFLUCAN 150 MG ORAL TABLET 255670 FLUCONAZOLE Inactive BACTRIM DS 800-160 MG ORAL TABLET 1 tab by mouth twice daily 201 12/19/26 BACTRIM DS 800-160 MG ORAL TABLET 017768 TRIMETHOPRIM-SULFAMETHOXAZOLE Inactive CLARITIN 10 MG ORAL TABLET 1 tablet by mouth daily as needed for allergies CLARITIN 10 MG ORAL TABLET 554821 LORATADINE I nactive FLUTICASONE PROPIONATE 50 MCG/ACT NASAL SUSPENSION 2 s prays/nostril qd PRN Congestion/Allergies FLUTICASONE PROPION ATE 50 MCG/ACT NASAL SUSPENSION 4991287 FLUTICASONE PROPIONATE Inactive MIRALAX ORAL POWDER 8.5 to 17g po qd PRN Constipation MIRALAX ORAL POWDER 416767 POLYETHYLENE GLYCOL 3350 Inactive IBUPROFEN 800 MG ORAL TABLET 1 tab every 8 hours as needed for p ain IBUPROFEN 800 MG ORAL TABLET 537787 IBUPROFEN Krupa ctive HYDROCHLOROTHIAZIDE 12.5 MG ORAL CAPSULE 1 po qd PRN Edema 01/10 HYDROCHLOROTHIAZIDE 12.5 MG ORAL CAPSULE 586195 HYDROCH LOROTHIAZIDE Inactive CIPRO 500 MG ORAL TABLET 1 tablet by mouth twice daily CIPRO 500 MG ORAL TABLET 083792 CIPROFLOXACIN HCL Inactive FLUCONAZOLE 150 MG ORAL TABLET take 1 tab po qday once FLUCONAZOLE 150 MG ORAL TABLET 318404 FLUCONAZOLE Inactive ZITHROMAX Z-KARTHIK 250 MG ORAL TABLET 2 today, then 1 daily for 4 d ays ZITHROMAX Z-KARTHIK 250 MG ORAL TABLET 284566 AZITHROMYCIN Inactive PREDNISONE 20 MG ORAL TABLET 2 tabs daily for 3 days, 1 tab daily for 3 days, 1/2 tab daily for 2 days PREDNISONE 20 MG ORAL T ABLET 205907 PREDNISONE Inactive AZITHROMYCIN 250 MG ORAL TABLET 2 po qd x 1 day, then 1 po q d x 4 days AZITHROMYCIN 250 MG ORAL TABLET 627966 AZITHROMY SPARKLE Inactive PREDNISONE 20 MG ORAL TABLET 2 tabs daily for 3 days, 1 tab daily for 3 days, 1/2 tab daily for 2 days PREDNISONE 20 MG ORAL TABLET 507310 PREDNISONE Inactive CEFDINIR 300 MG ORAL CAPSULE by mouth twice a day 2013 CEFDINIR 300 MG ORAL CAPSULE 196678 CEFDINIR Inactive TRIAMCINOLONE ACETONIDE 0.1 % EXTERNAL OINTMENT Apply to affected areas TID for up to 2 weeks TRIAMCINOLONE ACETON ZACH 0.1 % EXTERNAL OINTMENT 9874324 TRIAMCINOLONE ACETONIDE Inactive PREDNISONE 20 MG ORAL TABLET 2 tabs daily for 3 days, 1 tab daily for 3 days, 1/2 tab daily for 2 days PREDNISONE 20 MG ORAL T ABLET 988324 PREDNISONE Inactive BACTRIM DS 800-160 MG ORAL TABLET 1 po BID x 7 days 29/04/10 BACTRIM DS 800-160 MG ORAL TABLET 258194 SULFAMETHOXAZOLE-TRIMETHOP RIM Inactive CIPRO 500 MG ORAL TABLET 1 tablet by mouth twice daily CIPRO 500 MG ORAL TABLET 251788 CIPROFLOXACIN HCL Inactive AZITHROMYCIN 250 MG ORAL TABLET 2 po qd x 1 day, then 1 po q d x 4 days AZITHROMYCIN 250 MG ORAL TABLET 257964 AZITHROMY SPARKLE Inactive FLAGYL 500 MG ORAL TABLET 1 tablet by mouth bid 04/13 FLAGYL 500 MG ORAL TABLET 433510 METRONIDAZOLE Inactive AZITHROMYCIN 250 MG ORAL TABLET 2 po qd x 1 day, then 1 po q d x 4 days AZITHROMYCIN 250 MG ORAL TABLET 003176 AZITHROMY SPARKLE Inactive AMOXICILLIN 500 MG ORAL CAPSULE 2 po BID x 10 days 201 01/15/27 AMOXICILLIN 500 MG ORAL CAPSULE 152962 AMOXICILLIN Inactive AMOXICILLIN 500 MG ORAL CAPSULE 2 po BID x 14 days for H. Pylori AMOXICILLIN 500 MG ORAL CAPSULE 259753 AMOXICILLIN Inactive CLARITHROMYCIN 500 MG ORAL TABLET 1 tab po BID x 14 days CLARITHROMYCIN 500 MG ORAL TABLET 996846 CLARITHROMYCIN Inacti ve FLAGYL 500 MG ORAL TABLET 1 tablet by mouth bid 08/29 FLAGYL 500 MG ORAL TABLET 533434 METRONIDAZOLE Inactive PROTONIX 40 MG ORAL TABLET DELAYED RELEASE 1 pill by m kayceeh daily, for acid reflux PROTONIX 40 MG ORAL TABLET DELAYED RELEAS E 111897 PANTOPRAZOLE SODIUM Inactive Immunizations Vaccine Administration Date [...] Description Lab Report: CBC W/DIFF - Hematology hemoglobin, blood 13.8 g/dL 12.0-16.0 hematocrit, blood 40.5 % 37.0-47.0 mean corpuscular volume, RBC 97 fL 80-97 mean corpuscular hemoglobin, RBC 33.0 pg 27. 0-31.2 mean corpuscular hemoglobin concentration, RBC 34.0 G/DL % 31.8-35.4 red blood cell distribution width 11.5 % 11 .6-14.8 platelet count 215 10^3/MM^3 10*3/mm3 720-833 4711/11/28 erythrocyte (RBC) count 4.17 10^6/MM^3 10*6/mm3 3.80-5.8 0 lymphocytes as percent of blood leukocytes 23.9 % 20.5-51.1 monocytes as percent of blood leukocytes 7.3 % 1.7-9.3 neutrophils as percent of blood leukocytes 66.5 % 42.2-75.2 leukocyte count, blood 7.6 10^3/MM^3 10*3/mm3 4.6-10.2 Lab Report: Comp. Metabolic Panel, B-Typ e Natriuretic Peptide, Free Thyr ... - Chemistry urea nitrogen, blood 11 mg/dL 7-18 creatinine, serum 0.61 mg/dL 0.60-1.30 alanine aminotransferase (SGPT), serum 28 U/L 12-78 aspartate aminotransferase (SGOT), serum 20 U/L 15-37 calcium, serum 9.3 mg/dL 8.5-10.1 bilirubin, serum, total 0.60 mg/dL 0.00-1.00 thyroxine, serum, free 0.70 ng/dL 0.59-1.17 TSH 2.81 m[iU]/mL 0.36-3.74 sodium, serum 138 mmol/L 909-770 2607/06/27 carbon dioxide, venous blood 30.3 mmol/L 21.0-32 .0 potassium, serum 4.4 mmol/L 3.5-5.2 chloride, serum 102 mmol/L 98-107 blood glucose 95 mg/dL 65-95 Lab Report: Comp. Metabolic Panel, Eryth rocyte Sed Rate, UADIP W/MICRO, ... - Chemistry sodium, serum 139 mmol/L 494-851 1399/11/28 carbon dioxide, venous blood 26.0 mmol/L 21.0-32 [...] Report: UADIP W/MICRO, AUTO - Urinal ysis urine color Yellow Colorless;Lightyellow;St raw;Yellow urobilinogen, urine, semiquantitative (dipstick) 0.2 E .U./dL Normal leukocyte esterase, urine, by dipstick Negative Negative nitrite, urine, semiquantitative Negative Neg ative appearance, urine Clear Clear specific gravity, urine 1.015 1.000-1.030 pH, urine, semiquantitative 6.5 5.0-8.5 glucose, urine, semiquantitative Negative Neg ative ketones, urine, by test strip Negative Negati ve bilirubin, urine Negative Negative Encounters Code Encounter Date Provider Facility CPT-33050 Level 3 Est. Patient 16:46:51 CDT Thomas reynolds DO [facility] CPT-97104 [id number] Vst-Est Level III 14:40:49 CDT Paul Hamlin MD [facility] CPT-07028 Level 4 Est. Patient 11:08:43 CDT Checo Conklin MD [facility]-45756 [id number] Vst-Est Level III 09:37:41 CDT Dangelo Rangel MD [facility] CPT-34848 Level 4 Est. Patient 08:57:51 CASINO WORK[employer] Checo Conklin MD [facility] CPT-98952 Level 3 Est. Patient 11:24:55 CASINO WORKER Efren almendarez [facility] CPT-02832 Level 3 Est. Patient 13:05:44 CDT Paul Hamlin MD [facility] CPT-36390 Level 3 Est. Patient 11:29:55 CDT Cheoc Conklin MD [facility] CPT-05779 Level 4 Est. Patient 11:08:12 CASINO WORKER Checo Conklin MD [facility] CPT-03579 Level 4 Est. Patient 16:06:48 CASINO WORKER Checo Conklin MD [facility] CPT-30170 Level 3 Est. Patient 09:11:49 CDT Efren almendarez [facility] CPT-20187 Level 2 Est. Patient 19:53:27 CDT Tanner hill MD [facility] CPT-05778 Level 3 Est. Patient 09:15:34 CDT Efren almendarez [facility]-52281 Level 3 Est. Patient 11:28:51 CASINO WORKER Efren almendarez APRN [facility] CPT-44234 Level 4 Est. Patient 13:55:46 CASINO WORKER Checo Conklin MD [facility] CPT-53595 Level 4 Est. Patient 17:10:53 CDT Checo Conklin MD [facility] CPT-97554 Level 3 Est. Patient 15:56:22 CDT Checo Conklin MD [facility] CPT-06223 Level 3 Est. Patient 15:29:07 CDT Checo Conklin MD [facility] CPT-45228 Level 3 Est. Patient 14:38:41 CDT Checo Conklin MD [facility] CPT-13542 Level 3 Est. 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 Patient 12:29:32 CDT Dangelo arroyo MD [facility] CPT-34654 Level 3 Est. Patient 16:53:02 CDT Checo Conklin MD [facility] CPT-10816 Level 3 Est. Patient 16:37:13 CDT Checo Conklin MD [facility] CPT-44702 Level 3 Est. Patient 16:16:59 CDT Paul Hamlin MD [facility] CPT-14162 Level 3 Est. Patient 14:20:13 CDT Dangelo arroyo MD [facility] CPT-06821 Level 4 Est. Patient 11:29:33 CDT Checo Conklin MD [facility] CPT-84011 Level 3 Est. Patient 17:08:31 CDT Checo Conklin MD [facility] CPT-62422 Level 3 Est. Patient 16:50:42 [employer] Checo Conklin MD [facility] CPT-74567 Level 4 Est. Patient 09:26:08 [employer] Checo Conklin MD [facility] CPT-12850 Level 3 Est. Patient 11:37:10 CDT Checo Conklin MD [facility] CPT-24174 Level 4 Est. Patient 14:07:38 CDT Checo Conklin MD [facility] CPT-90043 Level 3 Est. Patient 09:54:41 CDT Checo Conklin MD [facility] CPT-35329 Level 3 Est. Patient 11:10:54 CDT Paul Hamlin MD [facility] CPT-75846 Level 3 Est. Patient 14:16:56 [employer] Checo Conklin MD [facility] CPT-17025 Level 3 Est. Patient 11:04:11 [employer] Checo Conklin MD [facility] CPT-21251 Level 3 Est. Patient 17:09:26 CDT Dangelo arroyo MD [facility] CPT-80416 Level 3 Est. Patient 16:54:37 CDT Checo Conklin MD [facility] Procedures Code Procedure Name Date Entry Date Standard Desc ription CPT-08436 Abx/Therapy Injection 09:52:15 CDT CPT-13010 Abx/Therapy Injection 18:17:48 CDT CPT-J2550 Phenergan 25 mg (Promethazine) 16:48:23 CDT CPT-J1885 Toradol 60 mg 16:48:23 CDT CPT-60033 Wrist, right, comp 3V - XRAY USE ONLY 09:24:31 CDT CPT-91762 Abd compl w upright - XRAY USE ONLY 1 1:36:54 [employer] CPT-21477 UA w micro - LAB USE ONLY 17:06:46 CDT 2015 CPT-06113 [facility] Qual - LAB USE ONLY 17:06:46 CDT 05/06 CPT-40055 CMP - LAB USE ONLY 17:06:46 CDT CPT-56677 CBC with Diff - LAB USE ONLY 17:06:45 CDT 2 CPT-92829 Venipuncture Draw Fee 17:06:45 CDT CPT-LR Lesion Removal 19:53:27 CDT CPT-OV Office Visit 11:31:28 CDT CPT-41701 Tubersol 09:39:29 CDT CPT-J2550 Phenergan 25 mg (Promethazine) 13:59:02 [employer] CPT-J1885 Toradol 60 mg (Ketorolac) 13:59:02 [employer] 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
--- OUTSIDE RECORDS SUMMARY | 2019-09-29 01:19 | XMS REPORT | Clinical Summary ---
Author Author Admin, Bethany Gonzales Organization [employer] Address Unknown Phone Unavailable Allergies, Adverse Reactions, Alerts Allergy Name Reaction Description Start Date Severity Status Pr ovider CODEINE in other meds is okay to take, not by its self Mild Active Thomas Mraks DO Conditions or Problems Problem Name Problem [...] RELEASE 1 daily with furosemide POTASSIUM CHLORIDE 27197409228 Active Paul Hamlin MD Active FUROSEMIDE 20 MG ORAL TABLET 1 daily for swelling FUROSEMIDE 19079453551 Active Paul Hamlin MD Active HYDROCHLOROTHIAZIDE 12.5 MG ORAL CAPSULE 1 po qd PRN Edema 01/10 HYDROCHLOROTHIAZIDE 93952054381 No Longer Active Paul Hamlin MD Active IBUPROFEN 800 MG ORAL TABLET 1 tab every 8 hours as needed for p ain IBUPROFEN 18141782864 No Longer Active Paul Hamlin MD Active PAROXETINE HCL 40 MG ORAL TABLET 1 po qd PAR OXETINE HCL 40202669498 Active Checo Conklin MD Active MIRALAX ORAL POWDER 8.5 to 17g po qd PRN Constipation POLYETHYLENE GLYCOL 3350 73110883068 No Longer Active Checo Conklin MD Active PROTONIX 40 MG ORAL TABLET DELAYED RELEASE 1 pill by m outh daily, for acid reflux PANTOPRAZOLE SODIUM 18391253943 No Longer Activ e Corry Méndez LPN Active FLAGYL 500 MG ORAL TABLET 1 tablet by mouth bid 08/29 METRONIDAZOLE 50079469047 No Longer Active Corry Méndez LPN Active CLARITHROMYCIN 500 MG ORAL TABLET 1 tab po BID x 14 days CLARITHROMYCIN 48368341731 No Longer Active Corry Méndez LPN Active AMOXICILLIN 500 MG ORAL CAPSULE 2 po BID x 14 days for H. Pylori AMOXICILLIN 67027721714 No Longer Active Corry Méndez LPN Active FLUTICASONE PROPIONATE 50 MCG/ACT NASAL SUSPENSION 2 s prays/nostril qd PRN Congestion/Allergies FLUTICASONE PROPIONATE 1971579538 9 No Longer Active Checo Conklin MD Active AMOXICILLIN 500 MG ORAL CAPSULE 2 po BID x 10 days 201 01/15/27 AMOXICILLIN 22686062087 No Longer Active Checo Conklin MD Activ e CLARITIN 10 MG ORAL TABLET 1 tablet by mouth daily as needed for allergies LORATADINE 73506279235 No Longer Active Checo Ortiz MD Active BACTRIM DS 800-160 MG ORAL TABLET 1 tab by mouth twice daily 201 12/19/26 TRIMETHOPRIM-SULFAMETHOXAZOLE 74001799783 No Longer Active Ragini Carrillo MD Active DIFLUCAN 150 MG ORAL TABLET 1 tablet by mouth qod 2015 FLUCONAZOLE 97616225379 No Longer Active Efren Medel IMMUNOCHEMIST Act mike AZITHROMYCIN 250 MG ORAL TABLET 2 po qd x 1 day, then 1 po q d x 4 days AZITHROMYCIN 17037809749 No Longer Active Efren flores IMMUNOCHEMIST Active FLAGYL 500 MG ORAL TABLET 1 tablet by mouth bid 04/13 METRONIDAZOLE 44300051903 No Longer Active Checo Conklin MD Acti ve FOCALIN XR 10 MG ORAL CAPSULE EXTENDED RELEASE 24 HOUR 1 po q a.m. DEXMETHYLPHENIDATE HCL 18476365384 Active Checo Conklin MD Active MAGNESIUM CITRATE 1.745 GM/30ML ORAL SOLUTION 150ml po BID P RN Constipation MAGNESIUM CITRATE 81855041700 No Longer Active Checo Conklin MD Active BACTROBAN 2 % EXTERNAL CREAM Apply to affected area BID for up to 10 days MUPIROCIN CALCIUM 65894516309 No Longer Active Checo Conklin MD Active HYDROCODONE-ACETAMINOPHEN 5-325 MG ORAL TABLET 1 tab b y mouth every 6 hours as needed HYDROCODONE-ACETAMINOPHEN 10833367542 No Longer Active Checo Conklin MD Active IBUPROFEN 800 MG ORAL TABLET 1 tab every 8 hours with food 03/20 IBUPROFEN 42113670861 No Longer Active Checo Conklin MD Active DIFLUCAN 150 MG ORAL TABLET 1 tablet by mouth if neede d, hold until symptoms start FLUCONAZOLE 68087657475 No Longer Active Checo Conklin MD Active BACTRIM DS 800-160 MG ORAL TABLET 1 tab by mouth twice daily 201 11/23/03 TRIMETHOPRIM-SULFAMETHOXAZOLE 87084209017 No Longer Active K bernice Méndez LPN Active HYDROCODONE-ACETAMINOPHEN 5-325 MG ORAL TABLET 0.5 to 1 tab by mouth every 6 hours as needed HYDROCODONE-ACETAMINOPHEN 34180491790 No Longer Active Checo Conklin MD Active ONDANSETRON 8 MG ORAL TABLET DISINTEGRATING place one tablet on tongue and allow to dissolve every 6 hours as needed for vomitting ONDANSETRON 23530785610 No Longer Active Checo Conklin MD Activ e COMPRO 25 MG RECTAL SUPPOSITORY insert or apply one garza ppository rectally as directed every 12 hours as needed for nausea PROCHLORPERAZINE 17967139979 No Longer Active Checo Conklin MD A ctive SUMATRIPTAN SUCCINATE 100 MG ORAL TABLET Take one PRN for migran e SUMATRIPTAN SUCCINATE 21633991581 No Longer Active Checo Conklin MD Active TRAVEL SICKNESS 25 MG ORAL TABLET CHEWABLE chew and sw allow one tablet every 6 hours as needed MECLIZINE HCL 35902281588 No Longer A ctive Checo Conklin MD Active BUPROPION HCL ER (SR) 100 MG ORAL TABLET EXTENDED RELE ASE 12 HOUR take one tablet by mouth one time daily for one week then take 1 two times daily BUPROPION HCL 49456567941 No Longer Active Checo gallagher MD Active TERBINAFINE HCL 250 MG ORAL TABLET take one table PO one time da moises TERBINAFINE HCL 63331528409 No Longer Active Checo Conklin MD Active METOCLOPRAMIDE HCL 10 MG ORAL TABLET take one PO tid PRN nausea METOCLOPRAMIDE HCL 30905917300 No Longer Active Checo Conklin MD Active DICLOFENAC SODIUM 75 MG ORAL TABLET DELAYED RELEASE 1 tablet by mouth twice daily PRN Knee pain DICLOFENAC SODIUM 29302651402 No Longer Active Checo Conklin MD Active LAMISIL 250 MG ORAL TABLET 1 po qd TERBINAFI NE HCL 35201890108 No Longer Active Checo Conklin MD Active REGLAN 10 MG ORAL TABLET 1 po TID PRN Nausea 3 METOCLOPRAMIDE HCL 25473201402 No Longer Active Checo Conklin MD Active CELEXA 20 MG ORAL TABLET 1 tablet by mouth daily 09/26 CITALOPRAM HYDROBROMIDE 87490715334 No Longer Active Checo Conklin MD Active AZITHROMYCIN 250 MG ORAL TABLET 2 po qd x 1 day, then 1 po q d x 4 days AZITHROMYCIN 23649825403 No Longer Active Checo Ortiz MD Active HYDROCODONE-ACETAMINOPHEN 5-325 MG ORAL TABLET 1 po q 6hr PRN Pa in HYDROCODONE-ACETAMINOPHEN 38024655124 No Longer Active Lenora Conklin MD Active PHENAZOPYRIDINE HCL 200 MG ORAL TABLET take 1 tab po TID for bladder pain PHENAZOPYRIDINE HCL 65047164446 No Longer Active Joe Conklin MD Active CIPRO 500 MG ORAL TABLET 1 tablet by mouth twice daily CIPROFLOXACIN HCL 61024998231 No Longer Active Dangelo Rangel MD Active HYDROCODONE-ACETAMINOPHEN 5-325 MG ORAL TABLET 1/2 to 1 po q 4 hours prn cough HYDROCODONE-ACETAMINOPHEN 60135305643 No Longer Activ candy Rangel MD Active BACTRIM DS 800-160 MG ORAL TABLET 1 po BID x 7 days 29/04/10 SULFAMETHOXAZOLE-TRIMETHOPRIM 71350545353 No Longer Active Checo Conklin MD Active PREDNISONE 20 MG ORAL TABLET 2 tabs daily for 3 days, 1 tab daily for 3 days, 1/2 tab daily for 2 days PREDNISONE 81641156351 No Longer Active Checo Conklin MD Active TRIAMCINOLONE ACETONIDE 0.1 % EXTERNAL OINTMENT Apply to affected areas TID for up to 2 weeks TRIAMCINOLONE ACETONIDE 83697139740 No Longer Active Checo Conklin MD Active CEFDINIR 300 MG ORAL CAPSULE by mouth twice a day 2013 CEFDINIR 95895647405 No Longer Active Dangelo Rangel MD Acti ve BUPROPION HCL ER (SMOKING DET) 150 MG ORAL TABLET EXTE NDED RELEASE 12 HOUR 1 a day for 1 week then 1 twice a day BUPROPION HCL (SMOKING DETER) 66751613650 No Longer Active Checo Conklin MD Active SIMVASTATIN 20 MG ORAL TABLET 1 po qd SIMVASTAT IN 55748015833 Active Checo Conklin MD Active CHANTIX STARTING MONTH KARTHIK 0.5 MG X 11 & 1 MG X 42 ORA L TABLET 0.5mg daily for 3 days, then 0.5mg BID for 4 days, then 1mg BID VARENICLINE TARTRATE 50983403174 No Longer Active Checo Conklin MD Activ e XANAX 0.5 MG ORAL TABLET 1 po BID PRN anxiety A LPRAZOLAM 49093747958 Active Checo Conklin MD Active CONCERTA 18 MG ORAL TABLET EXTENDED RELEASE 1 po q a.m. METHYLPHENIDATE HCL 25206339491 No Longer Active Checo Conklin MD Active AMBIEN 5 MG ORAL TABLET 1 po qHS PRN Insomnia Z OLPIDEM TARTRATE 73920219919 Active Checo Conklin MD Active TRAZODONE HCL 100 MG ORAL TABLET 0.5 to 1 po qHS PRN Insomnia 20 30/07/08 TRAZODONE HCL 28179879339 No Longer Active Checo Conklin MD Active FIORICET 325-50-40 MG TAB 1 tablet by mouth four times daily as needed [id number] 08533527328 No Longer Active Checo Conklin MD Active PHENERGAN CREAM* 25mg applied to wrist q6hr PRN Nausea PHENERGAN CREAM* No Longer Active Checo Conklin MD A ctive FLONASE 50 MCG/ACT NASAL SUSPENSION 1 spray each nostril am and hs FLUTICASONE PROPIONATE 78539156184 No Longer Active Checo Conklin MD Active ANTIPYRINE-BENZOCAINE 5.4-1.4 % OTIC SOLUTION 1-2 drops in affec yohannes ear BENZOCAINE-ANTIPYRINE 89251169707 No Longer Active Checo Conklin MD Active CEFDINIR 300 MG ORAL CAPSULE 1 po bid CEFDINIR 07473182997 No Longer Active Checo Conklin MD Active PREDNISONE 20 MG ORAL TABLET 2 tabs daily for 3 days, 1 tab daily for 3 days, 1/2 tab daily for 2 days PREDNISONE 05447320389 No Longer Active Checo Conklin MD Active AZITHROMYCIN 250 MG ORAL TABLET 2 po qd x 1 day, then 1 po q d x 4 days AZITHROMYCIN 97559016244 No Longer Active Checo Ortiz MD Active PREDNISONE 20 MG ORAL TABLET 2 tabs daily for 3 days, 1 tab daily for 3 days, 1/2 tab daily for 2 days PREDNISONE 75170817308 No Longer Active Checo Conklin MD Active ZITHROMAX Z-KARTHIK 250 MG ORAL TABLET 2 today, then 1 daily for 4 d ays AZITHROMYCIN 79393145930 No Longer Active Paul Hamlin MD Active FOCALIN XR 10 MG ORAL CAPSULE EXTENDED RELEASE 24 HOUR 1 po q a. m. DEXMETHYLPHENIDATE HCL 79417114553 No Longer Active Paul Hamlin MD Active PERCOCET 10-325 MG ORAL TABLET 1 tablet every 6 hours as needed for pain OXYCODONE-ACETAMINOPHEN 25333443734 No Longer Active Paul Hamlin MD Active LORTAB 5-500 MG ORAL TABLET 1/2 to 1 tablet by mouth e very 4 hours as needed for pain HYDROCODONE-ACETAMINOPHEN 36209398464 No Longer Active Checo Conklin MD Active FOCALIN XR 15 MG ORAL CAPSULE EXTENDED RELEASE 24 HOUR 1 po q a. m. DEXMETHYLPHENIDATE HCL 69203475415 No Longer Active Checo Conklin MD Active ZOFRAN ODT 4 MG ORAL TABLET DISINTEGRATING 1 po q6hr PRN Nausea ONDANSETRON 36764304708 No Longer Active Checo Conklin MD Active PERCOCET 5-325 MG ORAL TABLET 1 tablet by mouth every 6 hour s as needed OXYCODONE-ACETAMINOPHEN 78039799677 No Longer Active Checo Conklin MD Active PYRIDIUM 200 MG ORAL TABLET take 1 tab po TID prn urinary pain. PHENAZOPYRIDINE HCL 68795035387 No Longer Active Checo Joshua Active FLUCONAZOLE 150 MG ORAL TABLET take 1 tab po qday once FLUCONAZOLE 33163126001 No Longer Active Dangelo Rangel MD Acti ve CIPRO 500 MG ORAL TABLET 1 tablet by mouth twice daily CIPROFLOXACIN HCL 82552400898 No Longer Active Dangelo Rangel MD Active PYRIDIUM 200 MG ORAL TABLET take 1 tab po TID prn urinary pain. PYRIDIUM 200 MG ORAL TABLET 5838724 PHENAZOPYRIDINE HCL Inactive PERCOCET 5-325 MG ORAL TABLET 1 tablet by mouth every 6 hour s as needed PERCOCET 5-325 MG ORAL TABLET 0045857 OXYCODONE-ACETAMINOPHEN Inactive ZOFRAN ODT 4 MG ORAL TABLET DISINTEGRATING 1 po q6hr PRN Nausea ZOFRAN ODT 4 MG ORAL TABLET DISINTEGRATING 222654 ONDAN SETRON Inactive FOCALIN XR 15 MG [...] for pain PERCOCET 10-325 MG ORAL TABLET 2896125 OXYCODONE-ACETAMI NOPHEN Inactive FOCALIN XR 10 MG ORAL CAPSULE EXTENDED RELEASE 24 HOUR 1 po q a. m. FOCALIN XR 10 MG ORAL CAPSULE EXTENDED RELEASE 24 HOUR DEXMETHYLPHENIDATE HCL Inactive CEFDINIR 300 MG ORAL CAPSULE 1 po bid CEFDINI R 300 MG ORAL CAPSULE 728399 CEFDINIR Inactive ANTIPYRINE-BENZOCAINE 5.4-1.4 % OTIC SOLUTION 1-2 drops in affec yohannes ear ANTIPYRINE-BENZOCAINE 5.4-1.4 % OTIC SOLUTION BENZOCAINE-ANTIPYRINE Inactive FLONASE 50 MCG/ACT NASAL SUSPENSION 1 spray each nostril am and hs FLONASE 50 MCG/ACT NASAL SUSPENSION 7191374 FLUTICASONE PROPIONATE I nactive PHENERGAN CREAM* 25mg applied to wrist q6hr PRN Nausea PHENERGAN CREAM* Inactive FIORICET 325-50-40 MG TAB 1 tablet by mouth four times daily as needed FIORICET 325-50-40 MG TAB ACETAMINOPHEN-C AFF-BUTALBITAL Inactive TRAZODONE HCL 100 MG ORAL TABLET 0.5 to 1 po qHS PRN Insomnia 20 30/07/08 TRAZODONE HCL 100 MG ORAL TABLET 301793 TRAZODONE HCL Inactive CONCERTA 18 MG ORAL [...] cough HYDROCODONE-ACETAMINOPHEN 5-325 MG ORAL TABLET 8 99911 HYDROCODONE-ACETAMINOPHEN Inactive PHENAZOPYRIDINE HCL 200 MG ORAL TABLET take 1 tab po TID for bladder pain PHENAZOPYRIDINE HCL 200 MG ORAL TABLET 4167072 PHENAZOPYRIDINE HCL Inactive HYDROCODONE-ACETAMINOPHEN 5-325 MG ORAL TABLET 1 po q 6hr PRN Pa in HYDROCODONE-ACETAMINOPHEN 5-325 MG ORAL TABLET 383320 HYDROCODONE-ACETAMINOPHEN Inactive CELEXA 20 MG ORAL TABLET 1 tablet by mouth daily 09/26 CELEXA 20 MG ORAL TABLET 429079 CITALOPRAM HYDROBROMIDE Inactive REGLAN 10 MG ORAL TABLET 1 po TID PRN Nausea 3 REGLAN 10 MG ORAL TABLET 722966 METOCLOPRAMIDE HCL Inactive LAMISIL 250 MG ORAL TABLET 1 po qd L AMISIL 250 MG ORAL TABLET 577291 TERBINAFINE HCL Inactive DICLOFENAC SODIUM 75 MG ORAL TABLET DELAYED RELEASE 1 tablet by mouth twice daily PRN Knee pain DICLOFENAC SODIUM 75 MG ORAL TABLET DELAYED RELEASE 194946 DICLOFENAC SODIUM Inactive METOCLOPRAMIDE HCL 10 MG ORAL TABLET take one PO tid PRN nausea METOCLOPRAMIDE HCL 10 MG ORAL TABLET 503900 METOCLOPRAM ZACH HCL Inactive TERBINAFINE HCL 250 MG ORAL TABLET take one table PO one time da moises TERBINAFINE HCL 250 MG ORAL TABLET 184712 TERBINAFINE H CL Inactive BUPROPION HCL ER [...] SICKNESS 25 M G ORAL TABLET CHEWABLE 889769 MECLIZINE HCL Inactive SUMATRIPTAN SUCCINATE 100 MG ORAL TABLET Take one PRN for migran e SUMATRIPTAN SUCCINATE 100 MG ORAL TABLET 195897 SUMATRIPTAN SUCCINATE Inactive COMPRO 25 MG RECTAL SUPPOSITORY insert or apply one garza ppository rectally as directed every 12 hours as needed for nausea COMPRO 25 MG RECTAL SUPPOSITORY 327071 PROCHLORPERAZINE Inactive ONDANSETRON 8 MG ORAL TABLET DISINTEGRATING place one tablet on tongue and allow to dissolve every 6 hours as needed for vomitting ONDANSETRON 8 MG ORAL TABLET DISINTEGRATING 243262 ONDANSETRON Inactive HYDROCODONE-ACETAMINOPHEN 5-325 MG ORAL TABLET 0.5 to 1 tab by mouth every 6 hours as needed HYDROCODONE-ACETAMIN OPHEN 5-325 MG ORAL TABLET 821608 HYDROCODONE-ACETAMINOPHEN Inactive BACTRIM DS 800-160 MG ORAL TABLET 1 tab by mouth twice daily 201 11/23/03 BACTRIM DS 800-160 MG ORAL TABLET 852225 TRIMETHOPRIM-SULFAMETHOXAZOLE Inactive DIFLUCAN 150 MG ORAL TABLET 1 tablet by mouth if neede d, hold until symptoms start DIFLUCAN 150 MG ORAL TABLET 142995 FLUCONAZ OLE Inactive IBUPROFEN 800 MG ORAL TABLET 1 tab every 8 hours with food 03/20 IBUPROFEN 800 MG ORAL TABLET 690351 IBUPROFEN Krupa ctive HYDROCODONE-ACETAMINOPHEN 5-325 MG ORAL TABLET 1 tab b y mouth every 6 hours as needed HYDROCODONE-ACETAMINOPHEN 5-325 MG ORAL TABLET 602287 HYDROCODONE-ACETAMINOPHEN Inactive BACTROBAN 2 % EXTERNAL CREAM Apply to affected area BID for up to 10 days BACTROBAN 2 % EXTERNAL CREAM 668905 MUPIROCIN CA LCIUM Inactive MAGNESIUM CITRATE 1.745 GM/30ML ORAL SOLUTION 150ml po BID P RN Constipation MAGNESIUM CITRATE 1.745 GM/30ML ORAL SOLUTION 10 53560 MAGNESIUM CITRATE Inactive DIFLUCAN 150 MG ORAL TABLET 1 tablet by mouth qod 2015 DIFLUCAN 150 MG ORAL TABLET 464938 FLUCONAZOLE Inactive BACTRIM DS 800-160 MG ORAL TABLET 1 tab by mouth twice daily 201 12/19/26 BACTRIM DS 800-160 MG ORAL TABLET 201229 TRIMETHOPRIM-SULFAMETHOXAZOLE Inactive CLARITIN 10 MG ORAL TABLET 1 tablet by mouth daily as needed for allergies CLARITIN 10 MG ORAL TABLET 357491 LORATADINE I nactive FLUTICASONE PROPIONATE 50 MCG/ACT NASAL SUSPENSION 2 s prays/nostril qd PRN Congestion/Allergies FLUTICASONE PROPION ATE 50 MCG/ACT NASAL SUSPENSION 1870853 FLUTICASONE PROPIONATE Inactive MIRALAX ORAL POWDER 8.5 to 17g po qd PRN Constipation MIRALAX ORAL POWDER 611147 POLYETHYLENE GLYCOL 3350 Inactive IBUPROFEN 800 MG ORAL TABLET 1 tab every 8 hours as needed for p ain IBUPROFEN 800 MG ORAL TABLET 570494 IBUPROFEN Krupa ctive HYDROCHLOROTHIAZIDE 12.5 MG ORAL CAPSULE 1 po qd PRN Edema 01/10 HYDROCHLOROTHIAZIDE 12.5 MG ORAL CAPSULE 494139 HYDROCH LOROTHIAZIDE Inactive CIPRO 500 MG ORAL TABLET 1 tablet by mouth twice daily CIPRO 500 MG ORAL TABLET 180365 CIPROFLOXACIN HCL Inactive FLUCONAZOLE 150 MG ORAL TABLET take 1 tab po qday once FLUCONAZOLE 150 MG ORAL TABLET 372063 FLUCONAZOLE Inactive ZITHROMAX Z-KARTHIK 250 MG ORAL TABLET 2 today, then 1 daily for 4 d ays ZITHROMAX Z-KARTHIK 250 MG ORAL TABLET 833391 AZITHROMYCIN Inactive PREDNISONE 20 MG ORAL TABLET 2 tabs daily for 3 days, 1 tab daily for 3 days, 1/2 tab daily for 2 days PREDNISONE 20 MG ORAL T ABLET 267940 PREDNISONE Inactive AZITHROMYCIN 250 MG ORAL TABLET 2 po qd x 1 day, then 1 po q d x 4 days AZITHROMYCIN 250 MG ORAL TABLET 430465 AZITHROMY SPARKLE Inactive PREDNISONE 20 MG ORAL TABLET 2 tabs daily for 3 days, 1 tab daily for 3 days, 1/2 tab daily for 2 days PREDNISONE 20 MG ORAL TABLET 851280 PREDNISONE Inactive CEFDINIR 300 MG ORAL CAPSULE by mouth twice a day 2013 CEFDINIR 300 MG ORAL CAPSULE 915065 CEFDINIR Inactive TRIAMCINOLONE ACETONIDE 0.1 % EXTERNAL OINTMENT Apply to affected areas TID for up to 2 weeks TRIAMCINOLONE ACETON ZACH 0.1 % EXTERNAL OINTMENT 4376051 TRIAMCINOLONE ACETONIDE Inactive PREDNISONE 20 MG ORAL TABLET 2 tabs daily for 3 days, 1 tab daily for 3 days, 1/2 tab daily for 2 days PREDNISONE 20 MG ORAL T ABLET 723111 PREDNISONE Inactive BACTRIM DS 800-160 MG ORAL TABLET 1 po BID x 7 days 29/04/10 BACTRIM DS 800-160 MG ORAL TABLET 501035 SULFAMETHOXAZOLE-TRIMETHOP RIM Inactive CIPRO 500 MG ORAL TABLET 1 tablet by mouth twice daily CIPRO 500 MG ORAL TABLET 876968 CIPROFLOXACIN HCL Inactive AZITHROMYCIN 250 MG ORAL TABLET 2 po qd x 1 day, then 1 po q d x 4 days AZITHROMYCIN 250 MG ORAL TABLET 764371 AZITHROMY SPARKLE Inactive FLAGYL 500 MG ORAL TABLET 1 tablet by mouth bid 04/13 FLAGYL 500 MG ORAL TABLET 735853 METRONIDAZOLE Inactive AZITHROMYCIN 250 MG ORAL TABLET 2 po qd x 1 day, then 1 po q d x 4 days AZITHROMYCIN 250 MG ORAL TABLET 646786 AZITHROMY SPARKLE Inactive AMOXICILLIN 500 MG ORAL CAPSULE 2 po BID x 10 days 201 01/15/27 AMOXICILLIN 500 MG ORAL CAPSULE 747955 AMOXICILLIN Inactive AMOXICILLIN 500 MG ORAL CAPSULE 2 po BID x 14 days for H. Pylori AMOXICILLIN 500 MG ORAL CAPSULE 901644 AMOXICILLIN Inactive CLARITHROMYCIN 500 MG ORAL TABLET 1 tab po BID x 14 days CLARITHROMYCIN 500 MG ORAL TABLET 816204 CLARITHROMYCIN Inacti ve FLAGYL 500 MG ORAL TABLET 1 tablet by mouth bid 08/29 FLAGYL 500 MG ORAL TABLET 258460 METRONIDAZOLE Inactive PROTONIX 40 MG ORAL TABLET DELAYED RELEASE 1 pill by m kayceeh daily, for acid reflux PROTONIX 40 MG ORAL TABLET DELAYED RELEAS E 919901 PANTOPRAZOLE SODIUM Inactive Immunizations Vaccine Administration Date [...] ... - Chemistry sodium, serum 138 mmol/L 958-627 4054/06/27 carbon dioxide, venous blood 30.3 mmol/L 21.0-32 [...] ... - Chemistry sodium, serum 139 mmol/L 541-077 6613/11/28 carbon dioxide, venous blood 26.0 mmol/L 21.0-32 [...] 5.0-8.5 Encounters Code Encounter Date Provider Facility CPT-82397 Level 3 Est. Patient 16:46:51 CDT Thomas reynolds DO [facility] CPT-75141 [id number] Vst-Est Level III 14:40:49 CDT Paul Hamlin MD [facility] CPT-76389 Level 4 Est. Patient 11:08:43 CDT Checo Conklin MD [facility]-47569 [id number] Vst-Est Level III 09:37:41 CDT Dangelo Rangel MD [facility] CPT-95436 Level 4 Est. Patient 08:57:51 COMPUTER ENGINEERING TECHNOLOGIST Checo Conklin MD [facility] CPT-51895 Level 3 Est. Patient 11:24:55 COMPUTER ENGINEERING TECHNOLOGIST Efren almendarez [facility] CPT-66766 Level 3 Est. Patient 13:05:44 CDT Paul Hamlin MD [facility] CPT-16362 Level 3 Est. Patient 11:29:55 CDT Checo Conklin MD [facility] CPT-19039 Level 4 Est. Patient 11:08:12 COMPUTER ENGINEERING TECHNOLOGIST Checo Conklin MD [facility] CPT-76669 Level 4 Est. Patient 16:06:48 COMPUTER ENGINEERING TECHNOLOGIST Checo Conklin MD [facility] CPT-31614 Level 3 Est. Patient 09:11:49 CDT Efren almendarez [facility]-51781 Level 2 Est. Patient 19:53:27 CDT Tanner hill MD [facility] CPT-95556 Level 3 Est. Patient 09:15:34 CDT Efren almendarez [facility]-15519 Level 3 Est. Patient 11:28:51 COMPUTER ENGINEERING TECHNOLOGIST Efren almendarez APRN [facility] CPT-24133 Level 4 Est. Patient 13:55:46 COMPUTER ENGINEERING TECHNOLOGIST Checo Conklin MD [facility] CPT-69724 Level 4 Est. Patient 17:10:53 CDT Checo Conklin MD [facility] CPT-97345 Level 3 Est. Patient 15:56:22 CDT Checo Conklin MD [facility] CPT-31549 Level 3 Est. Patient 15:29:07 CDT Checo Conklin MD [facility] CPT-43451 Level 3 Est. Patient 14:38:41 CDT Checo Conklin MD [facility] CPT-79657 Level 3 Est. Patient 15:22:03 COMPUTER ENGINEERING TECHNOLOGIST Thomas reynolds DO [facility] CPT-91800 Level 3 Est. Patient 13:34:17 COMPUTER ENGINEERING TECHNOLOGIST Checo Conklin MD [facility] CPT-04909 Level 3 Est. Patient 12:29:32 CDT Dangelo arroyo MD [facility] CPT-29965 Level 3 Est. Patient 16:53:02 CDT Checo Conklin MD [facility] CPT-74284 Level 3 Est. Patient 16:37:13 CDT Checo Conklin MD [facility] CPT-98260 Level 3 Est. Patient 16:16:59 CDT Paul Hamlin MD [facility] CPT-60834 Level 3 Est. Patient 14:20:13 CDT Dangelo arroyo MD [facility] CPT-57370 Level 4 Est. Patient 11:29:33 CDT Checo Conklin MD [facility] CPT-71835 Level 3 Est. Patient 17:08:31 CDT Checo Conklin MD [facility] CPT-45923 Level 3 Est. Patient 16:50:42 COMPUTER ENGINEERING TECHNOLOGIST Checo Conklin MD [facility] CPT-68863 Level 4 Est. Patient 09:26:08 COMPUTER ENGINEERING TECHNOLOGIST Checo Conklin MD [facility] CPT-61778 Level 3 Est. Patient 11:37:10 CDT Checo Conklin MD [facility] CPT-70072 Level 4 Est. Patient 14:07:38 CDT Checo Conklin MD [facility] CPT-84711 Level 3 Est. Patient 09:54:41 CDT Checo Conklin MD [facility] CPT-38391 Level 3 Est. Patient 11:10:54 CDT Paul Hamlin MD [facility] CPT-73868 Level 3 Est. Patient 14:16:56 COMPUTER ENGINEERING TECHNOLOGIST Checo Conklin MD [facility] CPT-52369 Level 3 Est. Patient 11:04:11 COMPUTER ENGINEERING TECHNOLOGIST Checo Conklin MD [facility] CPT-17198 Level 3 Est. Patient 17:09:26 CDT Dangelo arroyo MD [facility] CPT-30424 Level 3 Est. Patient 16:54:37 CDT Checo Conklin MD [facility] Procedures Code Procedure Name Date Entry Date Standard Desc ription CPT-69102 Abx/Therapy Injection 09:52:15 CDT CPT-37534 Abx/Therapy Injection 18:17:48 CDT CPT-J2550 Phenergan 25 mg (Promethazine) 16:48:23 CDT CPT-J1885 Toradol 60 mg 16:48:23 CDT CPT-70885 Wrist, right, comp 3V - XRAY USE ONLY 09:24:31 CDT CPT-23522 Abd compl w upright - XRAY USE ONLY 1 1:36:54 COMPUTER ENGINEERING TECHNOLOGIST CPT-49723 UA w micro - LAB USE ONLY 17:06:46 CDT 2015 CPT-42788 BHCG Qual - LAB USE ONLY 17:06:46 CDT 05/06 CPT-63185 CMP - LAB USE ONLY 17:06:46 CDT CPT-73099 CBC with Diff - LAB USE ONLY 17:06:45 CDT 2 CPT-68297 Venipuncture Draw Fee 17:06:45 CDT CPT-LR Lesion Removal 19:53:27 CDT CPT-OV Office Visit 11:31:28 CDT CPT-37045 Tubersol 09:39:29 CDT CPT-J2550 Phenergan 25 mg (Promethazine) 13:59:02 COMPUTER ENGINEERING TECHNOLOGIST CPT-J1885 Toradol 60 mg (Ketorolac) 13:59:02 COMPUTER ENGINEERING TECHNOLOGIST 2012
--- OUTSIDE RECORDS SUMMARY | 2019-09-29 01:20 | XMS REPORT | Clinical Summary ---
Author Author Admin, Bethany Gonzales Organization [employer] Address Unknown Phone Unavailable Allergies, Adverse Reactions, [...] RELEASE 1 daily with furosemide POTASSIUM CHLORIDE [id number] Active Paul Hamlin MD Active FUROSEMIDE 20 MG ORAL TABLET 1 daily for swelling FUROSEMIDE 72207307654 Active Paul Hamlin MD Active HYDROCHLOROTHIAZIDE 12.5 MG ORAL CAPSULE 1 po qd PRN Edema 01/10 HYDROCHLOROTHIAZIDE 51202785350 No Longer Active Paul Hamlin MD Active IBUPROFEN 800 MG ORAL TABLET 1 tab every 8 hours as needed for p ain IBUPROFEN 10507361552 No Longer Active Paul Hamlin MD Active PAROXETINE HCL 40 MG ORAL TABLET 1 po qd PAR OXETINE HCL 14259879952 Active Checo Conklin MD Active MIRALAX ORAL POWDER 8.5 to 17g po qd PRN Constipation POLYETHYLENE GLYCOL 3350 [id number] No Longer Active Checo Conklin MD Active PROTONIX 40 MG ORAL TABLET DELAYED RELEASE 1 pill by m outh daily, for acid reflux PANTOPRAZOLE SODIUM 49942949542 No Longer Activ e Corry Méndez LPN Active FLAGYL 500 MG ORAL TABLET 1 tablet by mouth bid 08/29 METRONIDAZOLE 65811326875 No Longer Active Corry Méndez LPN Active CLARITHROMYCIN 500 MG ORAL TABLET 1 tab po BID x 14 days CLARITHROMYCIN 71347181771 No Longer Active Corry Méndez LPN Active AMOXICILLIN 500 MG ORAL CAPSULE 2 po BID x 14 days for H. Pylori AMOXICILLIN 32273297271 No Longer Active Corry Méndez LPN Active FLUTICASONE PROPIONATE 50 MCG/ACT NASAL SUSPENSION 2 s prays/nostril qd PRN Congestion/Allergies FLUTICASONE PROPIONATE 1713127328 9 No Longer Active Checo Conklin MD Active AMOXICILLIN 500 MG ORAL CAPSULE 2 po BID x 10 days 201 01/15/27 AMOXICILLIN 49534646437 No Longer Active Checo Conklin MD Activ e CLARITIN 10 MG ORAL TABLET 1 tablet by mouth daily as needed for allergies LORATADINE 81670425920 No Longer Active Checo Ortiz MD Active BACTRIM DS 800-160 MG ORAL TABLET 1 tab by mouth twice daily 201 12/19/26 TRIMETHOPRIM-SULFAMETHOXAZOLE 67688370471 No Longer Active Ragini Carrillo MD Active DIFLUCAN 150 MG ORAL TABLET 1 tablet by mouth qod 2015 FLUCONAZOLE 56825000159 No Longer Active Efren Medel TELEVISION ANCHOR Act mike AZITHROMYCIN 250 MG ORAL TABLET 2 po qd x 1 day, then 1 po q d x 4 days AZITHROMYCIN 43339307784 No Longer Active Efren flores TELEVISION ANCHOR Active FLAGYL 500 MG ORAL TABLET 1 tablet by mouth bid 04/13 METRONIDAZOLE 86558172867 No Longer Active Checo Conklin MD Acti ve FOCALIN XR 10 MG ORAL CAPSULE EXTENDED RELEASE 24 HOUR 1 po q a.m. DEXMETHYLPHENIDATE HCL 28380944317 Active Checo Conklin MD Active MAGNESIUM CITRATE 1.745 GM/30ML ORAL SOLUTION 150ml po BID P RN Constipation MAGNESIUM CITRATE 23454845699 No Longer Active Checo Conklin MD Active BACTROBAN 2 % EXTERNAL CREAM Apply to affected area BID for up to 10 days MUPIROCIN CALCIUM 50771841595 No Longer Active Checo Conklin MD Active HYDROCODONE-ACETAMINOPHEN 5-325 MG ORAL TABLET 1 tab b y mouth every 6 hours as needed HYDROCODONE-ACETAMINOPHEN 37309561568 No Longer Active Checo Conklin MD Active IBUPROFEN 800 MG ORAL TABLET 1 tab every 8 hours with food 03/20 IBUPROFEN 47623582529 No Longer Active Checo Conklin MD Active DIFLUCAN 150 MG ORAL TABLET 1 tablet by mouth if neede d, hold until symptoms start FLUCONAZOLE 69748846078 No Longer Active Checo Conklin MD Active BACTRIM DS 800-160 MG ORAL TABLET 1 tab by mouth twice daily 201 11/23/03 TRIMETHOPRIM-SULFAMETHOXAZOLE 54199843323 No Longer Active K bernice Méndez LPN Active HYDROCODONE-ACETAMINOPHEN 5-325 MG ORAL TABLET 0.5 to 1 tab by mouth every 6 hours as needed HYDROCODONE-ACETAMINOPHEN 70467487747 No Longer Active Checo Conklin MD Active ONDANSETRON 8 MG ORAL TABLET DISINTEGRATING place one tablet on tongue and allow to dissolve every 6 hours as needed for vomitting ONDANSETRON 23599939622 No Longer Active Checo Conklin MD Activ e COMPRO 25 MG RECTAL SUPPOSITORY insert or apply one garza ppository rectally as directed every 12 hours as needed for nausea PROCHLORPERAZINE 16267012177 No Longer Active Checo Conklin MD A ctive SUMATRIPTAN SUCCINATE 100 MG ORAL TABLET Take one PRN for migran e SUMATRIPTAN SUCCINATE 93150952386 No Longer Active Checo Conklin MD Active TRAVEL SICKNESS 25 MG ORAL TABLET CHEWABLE chew and sw allow one tablet every 6 hours as needed MECLIZINE HCL 67595885575 No Longer A ctive Checo Conklin MD Active BUPROPION HCL ER (SR) 100 MG ORAL TABLET EXTENDED RELE ASE 12 HOUR take one tablet by mouth one time daily for one week then take 1 two times daily BUPROPION HCL 54596997968 No Longer Active Checo gallagher MD Active TERBINAFINE HCL 250 MG ORAL TABLET take one table PO one time da moises TERBINAFINE HCL 75370858645 No Longer Active Checo Conklin MD Active METOCLOPRAMIDE HCL 10 MG ORAL TABLET take one PO tid PRN nausea METOCLOPRAMIDE HCL 55371513052 No Longer Active Checo Conklin MD Active DICLOFENAC SODIUM 75 MG ORAL TABLET DELAYED RELEASE 1 tablet by mouth twice daily PRN Knee pain DICLOFENAC SODIUM 21050911630 No Longer Active Checo Conklin MD Active LAMISIL 250 MG ORAL TABLET 1 po qd TERBINAFI NE HCL 80676093530 No Longer Active Checo Conklin MD Active REGLAN 10 MG ORAL TABLET 1 po TID PRN Nausea 3 METOCLOPRAMIDE HCL 52910571107 No Longer Active Checo Conklin MD Active CELEXA 20 MG ORAL TABLET 1 tablet by mouth daily 09/26 CITALOPRAM HYDROBROMIDE 61651180576 No Longer Active Checo Conklin MD Active AZITHROMYCIN 250 MG ORAL TABLET 2 po qd x 1 day, then 1 po q d x 4 days AZITHROMYCIN 43984304155 No Longer Active Checo Ortiz MD Active HYDROCODONE-ACETAMINOPHEN 5-325 MG ORAL TABLET 1 po q 6hr PRN Pa in HYDROCODONE-ACETAMINOPHEN 49612877262 No Longer Active Lenora Conklin MD Active PHENAZOPYRIDINE HCL 200 MG ORAL TABLET take 1 tab po TID for bladder pain PHENAZOPYRIDINE HCL 65827717217 No Longer Active Joe Conklin MD Active CIPRO 500 MG ORAL TABLET 1 tablet by mouth twice daily CIPROFLOXACIN HCL 25385238681 No Longer Active Dangelo Rangel MD Active HYDROCODONE-ACETAMINOPHEN 5-325 MG ORAL TABLET 1/2 to 1 po q 4 hours prn cough HYDROCODONE-ACETAMINOPHEN 88126733820 No Longer Activ candy Rangel MD Active BACTRIM DS 800-160 MG ORAL TABLET 1 po BID x 7 days 29/04/10 SULFAMETHOXAZOLE-TRIMETHOPRIM 51219282901 No Longer Active Checo Conklin MD Active PREDNISONE 20 MG ORAL TABLET 2 tabs daily for 3 days, 1 tab daily for 3 days, 1/2 tab daily for 2 days PREDNISONE 06055111003 No Longer Active Checo Conklin MD Active TRIAMCINOLONE ACETONIDE 0.1 % EXTERNAL OINTMENT Apply to affected areas TID for up to 2 weeks TRIAMCINOLONE ACETONIDE 10277483786 No Longer Active Checo Conklin MD Active CEFDINIR 300 MG ORAL CAPSULE by mouth twice a day 2013 CEFDINIR 29764011711 No Longer Active Dangelo Rangel MD Acti ve BUPROPION HCL ER (SMOKING DET) 150 MG ORAL TABLET EXTE NDED RELEASE 12 HOUR 1 a day for 1 week then 1 twice a day BUPROPION HCL (SMOKING DETER) 14829519402 No Longer Active Checo Conklin MD Active SIMVASTATIN 20 MG ORAL TABLET 1 po qd SIMVASTAT IN 55199225921 Active Checo Conklin MD Active CHANTIX STARTING MONTH KARTHIK 0.5 MG X 11 & 1 MG X 42 ORA L TABLET 0.5mg daily for 3 days, then 0.5mg BID for 4 days, then 1mg BID VARENICLINE TARTRATE 52917174898 No Longer Active Checo Conklin MD Activ e XANAX 0.5 MG ORAL TABLET 1 po BID PRN anxiety A LPRAZOLAM 62438389142 Active Checo Conklin MD Active CONCERTA 18 MG ORAL TABLET EXTENDED RELEASE 1 po q a.m. METHYLPHENIDATE HCL 66810992265 No Longer Active Checo Conklin MD Active AMBIEN 5 MG ORAL TABLET 1 po qHS PRN Insomnia Z OLPIDEM TARTRATE 81308812407 Active Checo Conklin MD Active TRAZODONE HCL 100 MG ORAL TABLET 0.5 to 1 po qHS PRN Insomnia 20 30/07/08 TRAZODONE HCL 55172079528 No Longer Active Checo Conklin MD Active FIORICET 325-50-40 MG TAB 1 tablet by mouth four times daily as needed [id number] 81696156289 No Longer Active Checo Conklin MD Active PHENERGAN CREAM* 25mg applied to wrist q6hr PRN Nausea PHENERGAN CREAM* No Longer Active Checo Conklin MD A ctive FLONASE 50 MCG/ACT NASAL SUSPENSION 1 spray each nostril am and hs FLUTICASONE PROPIONATE 75866140732 No Longer Active Checo Conklin MD Active ANTIPYRINE-BENZOCAINE 5.4-1.4 % OTIC SOLUTION 1-2 drops in affec yohannes ear BENZOCAINE-ANTIPYRINE 30480769922 No Longer Active Checo Conklin MD Active CEFDINIR 300 MG ORAL CAPSULE 1 po bid CEFDINIR 69062173514 No Longer Active Checo Conklin MD Active PREDNISONE 20 MG ORAL TABLET 2 tabs daily for 3 days, 1 tab daily for 3 days, 1/2 tab daily for 2 days PREDNISONE 05643282969 No Longer Active Checo Conklin MD Active AZITHROMYCIN 250 MG ORAL TABLET 2 po qd x 1 day, then 1 po q d x 4 days AZITHROMYCIN 37183583234 No Longer Active Checo Ortiz MD Active PREDNISONE 20 MG ORAL TABLET 2 tabs daily for 3 days, 1 tab daily for 3 days, 1/2 tab daily for 2 days PREDNISONE 27209036654 No Longer Active Checo Conklin MD Active ZITHROMAX Z-KARTHIK 250 MG ORAL TABLET 2 today, then 1 daily for 4 d ays AZITHROMYCIN 02907436349 No Longer Active Paul Hamlin MD Active FOCALIN XR 10 MG ORAL CAPSULE EXTENDED RELEASE 24 HOUR 1 po q a. m. DEXMETHYLPHENIDATE HCL 62668972971 No Longer Active Paul Hamlin MD Active PERCOCET 10-325 MG ORAL TABLET 1 tablet every 6 hours as needed for pain OXYCODONE-ACETAMINOPHEN 08068592952 No Longer Active Paul Hamlin MD Active LORTAB 5-500 MG ORAL TABLET 1/2 to 1 tablet by mouth e very 4 hours as needed for pain HYDROCODONE-ACETAMINOPHEN 53066021395 No Longer Active Checo Conklin MD Active FOCALIN XR 15 MG ORAL CAPSULE EXTENDED RELEASE 24 HOUR 1 po q a. m. DEXMETHYLPHENIDATE HCL 79139627579 No Longer Active Checo Conklin MD Active ZOFRAN ODT 4 MG ORAL TABLET DISINTEGRATING 1 po q6hr PRN Nausea ONDANSETRON 03802359874 No Longer Active Checo Conklin MD Active PERCOCET 5-325 MG ORAL TABLET 1 tablet by mouth every 6 hour s as needed OXYCODONE-ACETAMINOPHEN 70154987996 No Longer Active Checo Conklin MD Active PYRIDIUM 200 MG ORAL TABLET take 1 tab po TID prn urinary pain. PHENAZOPYRIDINE HCL 69389343990 No Longer Active Checo Joshua Active FLUCONAZOLE 150 MG ORAL TABLET take 1 tab po qday once FLUCONAZOLE 55668222612 No Longer Active Dangelo Rangel MD Acti ve CIPRO 500 MG ORAL TABLET 1 tablet by mouth twice daily CIPROFLOXACIN HCL 91652354719 No Longer Active Dangelo Rangel MD Active PYRIDIUM 200 MG ORAL TABLET take 1 tab po TID prn urinary pain. PYRIDIUM 200 MG ORAL TABLET 0120054 PHENAZOPYRIDINE HCL Inactive PERCOCET 5-325 MG ORAL TABLET 1 tablet by mouth every 6 hour s as needed PERCOCET 5-325 MG ORAL TABLET 9643710 OXYCODONE-ACETAMINOPHEN Inactive ZOFRAN ODT 4 MG ORAL TABLET DISINTEGRATING 1 po q6hr PRN Nausea ZOFRAN ODT 4 MG ORAL TABLET DISINTEGRATING 023039 ONDAN SETRON Inactive FOCALIN XR 15 MG [...] for pain PERCOCET 10-325 MG ORAL TABLET 4425281 OXYCODONE-ACETAMI NOPHEN Inactive FOCALIN XR 10 MG ORAL CAPSULE EXTENDED RELEASE 24 HOUR 1 po q a. m. FOCALIN XR 10 MG ORAL CAPSULE EXTENDED RELEASE 24 HOUR DEXMETHYLPHENIDATE HCL Inactive CEFDINIR 300 MG ORAL CAPSULE 1 po bid CEFDINI R 300 MG ORAL CAPSULE 614005 CEFDINIR Inactive ANTIPYRINE-BENZOCAINE 5.4-1.4 % OTIC SOLUTION 1-2 drops in affec yohannes ear ANTIPYRINE-BENZOCAINE 5.4-1.4 % OTIC SOLUTION BENZOCAINE-ANTIPYRINE Inactive FLONASE 50 MCG/ACT NASAL SUSPENSION 1 spray each nostril am and hs FLONASE 50 MCG/ACT NASAL SUSPENSION 0066860 FLUTICASONE PROPIONATE I nactive PHENERGAN CREAM* 25mg applied to wrist q6hr PRN Nausea PHENERGAN CREAM* Inactive FIORICET 325-50-40 MG TAB 1 tablet by mouth four times daily as needed FIORICET 325-50-40 MG TAB ACETAMINOPHEN-C AFF-BUTALBITAL Inactive TRAZODONE HCL 100 MG ORAL TABLET 0.5 to 1 po qHS PRN Insomnia 20 30/07/08 TRAZODONE HCL 100 MG ORAL TABLET 040004 TRAZODONE HCL Inactive CONCERTA 18 MG ORAL [...] cough HYDROCODONE-ACETAMINOPHEN 5-325 MG ORAL TABLET 8 54404 HYDROCODONE-ACETAMINOPHEN Inactive PHENAZOPYRIDINE HCL 200 MG ORAL TABLET take 1 tab po TID for bladder pain PHENAZOPYRIDINE HCL 200 MG ORAL TABLET 5123484 PHENAZOPYRIDINE HCL Inactive HYDROCODONE-ACETAMINOPHEN 5-325 MG ORAL TABLET 1 po q 6hr PRN Pa in HYDROCODONE-ACETAMINOPHEN 5-325 MG ORAL TABLET 017567 HYDROCODONE-ACETAMINOPHEN Inactive CELEXA 20 MG ORAL TABLET 1 tablet by mouth daily 09/26 CELEXA 20 MG ORAL TABLET 707950 CITALOPRAM HYDROBROMIDE Inactive REGLAN 10 MG ORAL TABLET 1 po TID PRN Nausea 3 REGLAN 10 MG ORAL TABLET 115834 METOCLOPRAMIDE HCL Inactive LAMISIL 250 MG ORAL TABLET 1 po qd L AMISIL 250 MG ORAL TABLET 818782 TERBINAFINE HCL Inactive DICLOFENAC SODIUM 75 MG ORAL TABLET DELAYED RELEASE 1 tablet by mouth twice daily PRN Knee pain DICLOFENAC SODIUM 75 MG ORAL TABLET DELAYED RELEASE 432280 DICLOFENAC SODIUM Inactive METOCLOPRAMIDE HCL 10 MG ORAL TABLET take one PO tid PRN nausea METOCLOPRAMIDE HCL 10 MG ORAL TABLET 559872 METOCLOPRAM ZACH HCL Inactive TERBINAFINE HCL 250 MG ORAL TABLET take one table PO one time da moises TERBINAFINE HCL 250 MG ORAL TABLET 155165 TERBINAFINE H CL Inactive BUPROPION HCL ER [...] SICKNESS 25 M G ORAL TABLET CHEWABLE 952997 MECLIZINE HCL Inactive SUMATRIPTAN SUCCINATE 100 MG ORAL TABLET Take one PRN for migran e SUMATRIPTAN SUCCINATE 100 MG ORAL TABLET 533989 SUMATRIPTAN SUCCINATE Inactive COMPRO 25 MG RECTAL SUPPOSITORY insert or apply one garza ppository rectally as directed every 12 hours as needed for nausea COMPRO 25 MG RECTAL SUPPOSITORY 014089 PROCHLORPERAZINE Inactive ONDANSETRON 8 MG ORAL TABLET DISINTEGRATING place one tablet on tongue and allow to dissolve every 6 hours as needed for vomitting ONDANSETRON 8 MG ORAL TABLET DISINTEGRATING 054776 ONDANSETRON Inactive HYDROCODONE-ACETAMINOPHEN 5-325 MG ORAL TABLET 0.5 to 1 tab by mouth every 6 hours as needed HYDROCODONE-ACETAMIN OPHEN 5-325 MG ORAL TABLET 276019 HYDROCODONE-ACETAMINOPHEN Inactive BACTRIM DS 800-160 MG ORAL TABLET 1 tab by mouth twice daily 201 11/23/03 BACTRIM DS 800-160 MG ORAL TABLET 951149 TRIMETHOPRIM-SULFAMETHOXAZOLE Inactive DIFLUCAN 150 MG ORAL TABLET 1 tablet by mouth if neede d, hold until symptoms start DIFLUCAN 150 MG ORAL TABLET 513130 FLUCONAZ OLE Inactive IBUPROFEN 800 MG ORAL TABLET 1 tab every 8 hours with food 03/20 IBUPROFEN 800 MG ORAL TABLET 233765 IBUPROFEN Krupa ctive HYDROCODONE-ACETAMINOPHEN 5-325 MG ORAL TABLET 1 tab b y mouth every 6 hours as needed HYDROCODONE-ACETAMINOPHEN 5-325 MG ORAL TABLET 316312 HYDROCODONE-ACETAMINOPHEN Inactive BACTROBAN 2 % EXTERNAL CREAM Apply to affected area BID for up to 10 days BACTROBAN 2 % EXTERNAL CREAM 828903 MUPIROCIN CA LCIUM Inactive MAGNESIUM CITRATE 1.745 GM/30ML ORAL SOLUTION 150ml po BID P RN Constipation MAGNESIUM CITRATE 1.745 GM/30ML ORAL SOLUTION 10 21175 MAGNESIUM CITRATE Inactive DIFLUCAN 150 MG ORAL TABLET 1 tablet by mouth qod 2015 DIFLUCAN 150 MG ORAL TABLET 142870 FLUCONAZOLE Inactive BACTRIM DS 800-160 MG ORAL TABLET 1 tab by mouth twice daily 201 12/19/26 BACTRIM DS 800-160 MG ORAL TABLET 353873 TRIMETHOPRIM-SULFAMETHOXAZOLE Inactive CLARITIN 10 MG ORAL TABLET 1 tablet by mouth daily as needed for allergies CLARITIN 10 MG ORAL TABLET 429860 LORATADINE I nactive FLUTICASONE PROPIONATE 50 MCG/ACT NASAL SUSPENSION 2 s prays/nostril qd PRN Congestion/Allergies FLUTICASONE PROPION ATE 50 MCG/ACT NASAL SUSPENSION 0377526 FLUTICASONE PROPIONATE Inactive MIRALAX ORAL POWDER 8.5 to 17g po qd PRN Constipation MIRALAX ORAL POWDER 607819 POLYETHYLENE GLYCOL 3350 Inactive IBUPROFEN 800 MG ORAL TABLET 1 tab every 8 hours as needed for p ain IBUPROFEN 800 MG ORAL TABLET 475967 IBUPROFEN Krupa ctive HYDROCHLOROTHIAZIDE 12.5 MG ORAL CAPSULE 1 po qd PRN Edema 01/10 HYDROCHLOROTHIAZIDE 12.5 MG ORAL CAPSULE 866003 HYDROCH LOROTHIAZIDE Inactive CIPRO 500 MG ORAL TABLET 1 tablet by mouth twice daily CIPRO 500 MG ORAL TABLET 606856 CIPROFLOXACIN HCL Inactive FLUCONAZOLE 150 MG ORAL TABLET take 1 tab po qday once FLUCONAZOLE 150 MG ORAL TABLET 436808 FLUCONAZOLE Inactive ZITHROMAX Z-KARTHIK 250 MG ORAL TABLET 2 today, then 1 daily for 4 d ays ZITHROMAX Z-KARTHIK 250 MG ORAL TABLET 685548 AZITHROMYCIN Inactive PREDNISONE 20 MG ORAL TABLET 2 tabs daily for 3 days, 1 tab daily for 3 days, 1/2 tab daily for 2 days PREDNISONE 20 MG ORAL T ABLET 633421 PREDNISONE Inactive AZITHROMYCIN 250 MG ORAL TABLET 2 po qd x 1 day, then 1 po q d x 4 days AZITHROMYCIN 250 MG ORAL TABLET 802796 AZITHROMY SPARKLE Inactive PREDNISONE 20 MG ORAL TABLET 2 tabs daily for 3 days, 1 tab daily for 3 days, 1/2 tab daily for 2 days PREDNISONE 20 MG ORAL TABLET 657495 PREDNISONE Inactive CEFDINIR 300 MG ORAL CAPSULE by mouth twice a day 2013 CEFDINIR 300 MG ORAL CAPSULE 009042 CEFDINIR Inactive TRIAMCINOLONE ACETONIDE 0.1 % EXTERNAL OINTMENT Apply to affected areas TID for up to 2 weeks TRIAMCINOLONE ACETON ZACH 0.1 % EXTERNAL OINTMENT 6051314 TRIAMCINOLONE ACETONIDE Inactive PREDNISONE 20 MG ORAL TABLET 2 tabs daily for 3 days, 1 tab daily for 3 days, 1/2 tab daily for 2 days PREDNISONE 20 MG ORAL T ABLET 940974 PREDNISONE Inactive BACTRIM DS 800-160 MG ORAL TABLET 1 po BID x 7 days 29/04/10 BACTRIM DS 800-160 MG ORAL TABLET 835792 SULFAMETHOXAZOLE-TRIMETHOP RIM Inactive CIPRO 500 MG ORAL TABLET 1 tablet by mouth twice daily CIPRO 500 MG ORAL TABLET 587976 CIPROFLOXACIN HCL Inactive AZITHROMYCIN 250 MG ORAL TABLET 2 po qd x 1 day, then 1 po q d x 4 days AZITHROMYCIN 250 MG ORAL TABLET 662192 AZITHROMY SPARKLE Inactive FLAGYL 500 MG ORAL TABLET 1 tablet by mouth bid 04/13 FLAGYL 500 MG ORAL TABLET 463888 METRONIDAZOLE Inactive AZITHROMYCIN 250 MG ORAL TABLET 2 po qd x 1 day, then 1 po q d x 4 days AZITHROMYCIN 250 MG ORAL TABLET 618822 AZITHROMY SPARKLE Inactive AMOXICILLIN 500 MG ORAL CAPSULE 2 po BID x 10 days 201 01/15/27 AMOXICILLIN 500 MG ORAL CAPSULE 791073 AMOXICILLIN Inactive AMOXICILLIN 500 MG ORAL CAPSULE 2 po BID x 14 days for H. Pylori AMOXICILLIN 500 MG ORAL CAPSULE 513053 AMOXICILLIN Inactive CLARITHROMYCIN 500 MG ORAL TABLET 1 tab po BID x 14 days CLARITHROMYCIN 500 MG ORAL TABLET 201927 CLARITHROMYCIN Inacti ve FLAGYL 500 MG ORAL TABLET 1 tablet by mouth bid 08/29 FLAGYL 500 MG ORAL TABLET 133804 METRONIDAZOLE Inactive PROTONIX 40 MG ORAL TABLET DELAYED RELEASE 1 pill by m kayceeh daily, for acid reflux PROTONIX 40 MG ORAL TABLET DELAYED RELEAS E 231622 PANTOPRAZOLE SODIUM Inactive Immunizations Vaccine Administration Date [...] ... - Chemistry sodium, serum 138 mmol/L 294-647 5492/06/27 carbon dioxide, venous blood 30.3 mmol/L 21.0-32 [...] ... - Chemistry sodium, serum 139 mmol/L 882-647 6672/11/28 carbon dioxide, venous blood 26.0 mmol/L 21.0-32 [...] 5.0-8.5 Encounters Code Encounter Date Provider Facility CPT-13367 Level 3 Est. Patient 16:46:51 CDT Thomas reynolds DO [facility] CPT-93452 [id number] Vst-Est Level III 14:40:49 CDT Paul Hamlin MD [facility] CPT-23333 Level 4 Est. Patient 11:08:43 CDT Checo Conklin MD [facility]-51958 [id number] Vst-Est Level III 09:37:41 CDT Dangelo Rangel MD [facility] CPT-96060 Level 4 Est. Patient 08:57:51 TEACHER BALLET Checo Conklin MD [facility] CPT-62243 Level 3 Est. Patient 11:24:55 TEACHER BALLET Efren almendarez [facility] CPT-65485 Level 3 Est. Patient 13:05:44 CDT Paul Hamlin MD [facility] CPT-96174 Level 3 Est. Patient 11:29:55 CDT Checo Conklin MD [facility] CPT-47017 Level 4 Est. Patient 11:08:12 TEACHER BALLET Checo Conklin MD [facility] CPT-64204 Level 4 Est. Patient 16:06:48 TEACHER BALLET Checo Conklin MD [facility] CPT-38048 Level 3 Est. Patient 09:11:49 CDT Efren almendarez [facility]-05283 Level 2 Est. Patient 19:53:27 CDT Tanner hill MD [facility] CPT-87756 Level 3 Est. Patient 09:15:34 CDT Efren almendarez [facility]-56369 Level 3 Est. Patient 11:28:51 TEACHER BALLET Efren almendarez APRN [facility] CPT-35541 Level 4 Est. Patient 13:55:46 TEACHER BALLET Checo Conklin MD [facility] CPT-18769 Level 4 Est. Patient 17:10:53 CDT Checo Conklin MD [facility] CPT-46849 Level 3 Est. Patient 15:56:22 CDT Checo Conklin MD [facility] CPT-99183 Level 3 Est. Patient 15:29:07 CDT Checo Conklin MD [facility] CPT-36829 Level 3 Est. Patient 14:38:41 CDT Checo Conklin MD [facility] CPT-19561 Level 3 Est. Patient 15:22:03 TEACHER BALLET Thomas reynolds DO [facility] CPT-48562 Level 3 Est. Patient 13:34:17 TEACHER BALLET Checo Conklin MD [facility] CPT-60422 Level 3 Est. Patient 12:29:32 CDT Dangelo arroyo MD [facility] CPT-98022 Level 3 Est. Patient 16:53:02 CDT Checo Conklin MD [facility] CPT-53495 Level 3 Est. Patient 16:37:13 CDT Checo Conklin MD [facility] CPT-72765 Level 3 Est. Patient 16:16:59 CDT Paul Hamlin MD [facility] CPT-45605 Level 3 Est. Patient 14:20:13 CDT Dangelo arroyo MD [facility] CPT-43251 Level 4 Est. Patient 11:29:33 CDT Checo Conklin MD [facility] CPT-73069 Level 3 Est. Patient 17:08:31 CDT Checo Conklin MD [facility] CPT-56001 Level 3 Est. Patient 16:50:42 TEACHER BALLET Checo Conklin MD [facility] CPT-63338 Level 4 Est. Patient 09:26:08 TEACHER BALLET Checo Conklin MD [facility] CPT-66419 Level 3 Est. Patient 11:37:10 CDT Checo Conklin MD [facility] CPT-90847 Level 4 Est. Patient 14:07:38 CDT Checo Conklin MD [facility] CPT-29150 Level 3 Est. Patient 09:54:41 CDT Checo Conklin MD [facility] CPT-25559 Level 3 Est. Patient 11:10:54 CDT Paul Hamlin MD [facility] CPT-02185 Level 3 Est. Patient 14:16:56 TEACHER BALLET Checo Conklin MD [facility] CPT-57446 Level 3 Est. Patient 11:04:11 TEACHER BALLET Checo Conklin MD [facility] CPT-21668 Level 3 Est. Patient 17:09:26 CDT Dangelo arroyo MD [facility] CPT-67946 Level 3 Est. Patient 16:54:37 CDT Checo Conklin MD [facility] Procedures Code Procedure Name Date Entry Date Standard Desc ription CPT-85597 Abx/Therapy Injection 09:52:15 CDT CPT-81046 Abx/Therapy Injection 18:17:48 CDT CPT-J2550 Phenergan 25 mg (Promethazine) 16:48:23 CDT CPT-J1885 Toradol 60 mg 16:48:23 CDT CPT-97596 Wrist, right, comp 3V - XRAY USE ONLY 09:24:31 CDT CPT-35812 Abd compl w upright - XRAY USE ONLY 1 1:36:54 TEACHER BALLET CPT-81696 UA w micro - LAB USE ONLY 17:06:46 CDT 2015 CPT-90043 BHCG Qual - LAB USE ONLY 17:06:46 CDT 05/06 CPT-31920 CMP - LAB USE ONLY 17:06:46 CDT CPT-50173 CBC with Diff - LAB USE ONLY 17:06:45 CDT 2 CPT-85744 Venipuncture Draw Fee 17:06:45 CDT CPT-LR Lesion Removal 19:53:27 CDT CPT-OV Office Visit 11:31:28 CDT CPT-21127 Tubersol 09:39:29 CDT CPT-J2550 Phenergan 25 mg (Promethazine) 13:59:02 TEACHER BALLET CPT-J1885 Toradol 60 mg (Ketorolac) 13:59:02 TEACHER BALLET 2012
--- OUTSIDE RECORDS SUMMARY | 2019-09-29 01:20 | XMS REPORT | Clinical Summary ---
Author Author Admin, Bethany Ayala JohanamyGreek [facility] Address Unknown Phone Unavailable Allergies, Adverse [...] Checo Ortiz MD Repeated falls ICD-781.99 Inactive Chceo ngo MD Abdominal pain, generalized ICD-789.07 Inactive Checo Conklin MD Nausea ICD-787.02 Inactive Checo Conklin MD 201 02/15/12 Body Mass Index 25.0-25.9 Adult Inac tive Paul Hamlin MD Medication List Medication Instructions Start Date Stop Date Generic Name NDC Status Provider Patient Instruction KLOR-CON 10 10 MEQ ORAL TABLET EXTENDED RELEASE 1 daily with furosemide POTASSIUM CHLORIDE 70200857309 Active Paul Hamlin MD Active FUROSEMIDE 20 MG ORAL TABLET 1 daily for swelling FUROSEMIDE 81705058858 Active Paul Hamlin MD Active HYDROCHLOROTHIAZIDE 12.5 MG ORAL CAPSULE 1 po qd PRN Edema 01/10 HYDROCHLOROTHIAZIDE 36946907013 No Longer Active Paul Hamlin MD Active IBUPROFEN 800 MG ORAL TABLET 1 tab every 8 hours as needed for p ain IBUPROFEN 33685581366 No Longer Active Paul Hamlin MD Active PAROXETINE HCL 40 MG ORAL TABLET 1 po qd PAR OXETINE HCL 27315463626 Active Checo Conklin MD Active MIRALAX ORAL POWDER 8.5 to 17g po qd PRN Constipation POLYETHYLENE GLYCOL 3350 14605909425 No Longer Active Checo Conklin MD Active PROTONIX 40 MG ORAL TABLET DELAYED RELEASE 1 pill by m outh daily, for acid reflux PANTOPRAZOLE SODIUM 70126238207 No Longer Activ e Corry Méndez LPN Active FLAGYL 500 MG ORAL TABLET 1 tablet by mouth bid 08/29 METRONIDAZOLE 81795149123 No Longer Active Corry Méndez LPN Active CLARITHROMYCIN 500 MG ORAL TABLET 1 tab po BID x 14 days CLARITHROMYCIN 12011301457 No Longer Active Corry Méndez LPN Active AMOXICILLIN 500 MG ORAL CAPSULE 2 po BID x 14 days for H. Pylori AMOXICILLIN 86896998957 No Longer Active Corry Méndez LPN Active FLUTICASONE PROPIONATE 50 MCG/ACT NASAL SUSPENSION 2 s prays/nostril qd PRN Congestion/Allergies FLUTICASONE PROPIONATE 7651999090 9 No Longer Active Checo Conklin MD Active AMOXICILLIN 500 MG ORAL CAPSULE 2 po BID x 10 days 201 01/15/27 AMOXICILLIN 49461433609 No Longer Active Checo Conklin MD Activ e CLARITIN 10 MG ORAL TABLET 1 tablet by mouth daily as needed for allergies LORATADINE 29127932687 No Longer Active Checo Ortiz MD Active BACTRIM DS 800-160 MG ORAL TABLET 1 tab by mouth twice daily 201 12/19/26 TRIMETHOPRIM-SULFAMETHOXAZOLE 06346322034 No Longer Active Ragini Carrillo MD Active DIFLUCAN 150 MG ORAL TABLET 1 tablet by mouth qod 2015 FLUCONAZOLE 93881707976 No Longer Active Efren Medel JOB PLACEMENT SPECIALIST Act mike AZITHROMYCIN 250 MG ORAL TABLET 2 po qd x 1 day, then 1 po q d x 4 days AZITHROMYCIN 66798372699 No Longer Active Efren flores JOB PLACEMENT SPECIALIST Active FLAGYL 500 MG ORAL TABLET 1 tablet by mouth bid 04/13 METRONIDAZOLE 41006728613 No Longer Active Checo Conklin MD Acti ve FOCALIN XR 10 MG ORAL CAPSULE EXTENDED RELEASE 24 HOUR 1 po q a.m. DEXMETHYLPHENIDATE HCL 39301708866 Active Checo Conklin MD Active MAGNESIUM CITRATE 1.745 GM/30ML ORAL SOLUTION 150ml po BID P RN Constipation MAGNESIUM CITRATE 78271964146 No Longer Active Checo Conklin MD Active BACTROBAN 2 % EXTERNAL CREAM Apply to affected area BID for up to 10 days MUPIROCIN CALCIUM 45965580932 No Longer Active Checo Conlkin MD Active HYDROCODONE-ACETAMINOPHEN 5-325 MG ORAL TABLET 1 tab b y mouth every 6 hours as needed HYDROCODONE-ACETAMINOPHEN 32985809452 No Longer Active Checo Conklin MD Active IBUPROFEN 800 MG ORAL TABLET 1 tab every 8 hours with food 03/20 IBUPROFEN 47103200900 No Longer Active Checo Conklin MD Active DIFLUCAN 150 MG ORAL TABLET 1 tablet by mouth if neede d, hold until symptoms start FLUCONAZOLE 44828174770 No Longer Active Checo Conklin MD Active BACTRIM DS 800-160 MG ORAL TABLET 1 tab by mouth twice daily 201 11/23/03 TRIMETHOPRIM-SULFAMETHOXAZOLE 18316117235 No Longer Active K bernice Méndez LPN Active HYDROCODONE-ACETAMINOPHEN 5-325 MG ORAL TABLET 0.5 to 1 tab by mouth every 6 hours as needed HYDROCODONE-ACETAMINOPHEN 24060049994 No Longer Active Checo Conklin MD Active ONDANSETRON 8 MG ORAL TABLET DISINTEGRATING place one tablet on tongue and allow to dissolve every 6 hours as needed for vomitting ONDANSETRON 80506284454 No Longer Active Checo Conklin MD Activ e COMPRO 25 MG RECTAL SUPPOSITORY insert or apply one garza ppository rectally as directed every 12 hours as needed for nausea PROCHLORPERAZINE 35185359526 No Longer Active Checo Conklin MD A ctive SUMATRIPTAN SUCCINATE 100 MG ORAL TABLET Take one PRN for migran e SUMATRIPTAN SUCCINATE 35721218623 No Longer Active Checo Conklin MD Active TRAVEL SICKNESS 25 MG ORAL TABLET CHEWABLE chew and sw allow one tablet every 6 hours as needed MECLIZINE HCL 37544950307 No Longer A ctive Checo Conklin MD Active BUPROPION HCL ER (SR) 100 MG ORAL TABLET EXTENDED RELE ASE 12 HOUR take one tablet by mouth one time daily for one week then take 1 two times daily BUPROPION HCL 96840142833 No Longer Active Checo gallagher MD Active TERBINAFINE HCL 250 MG ORAL TABLET take one table PO one time da moises TERBINAFINE HCL 89569705272 No Longer Active Checo Conklin MD Active METOCLOPRAMIDE HCL 10 MG ORAL TABLET take one PO tid PRN nausea METOCLOPRAMIDE HCL 56841444180 No Longer Active Checo Conklin MD Active DICLOFENAC SODIUM 75 MG ORAL TABLET DELAYED RELEASE 1 tablet by mouth twice daily PRN Knee pain DICLOFENAC SODIUM 12281914647 No Longer Active Checo Conklin MD Active LAMISIL 250 MG ORAL TABLET 1 po qd TERBINAFI NE HCL 55694305649 No Longer Active Checo Conklin MD Active REGLAN 10 MG ORAL TABLET 1 po TID PRN Nausea 3 METOCLOPRAMIDE HCL 99442131432 No Longer Active Checo Conklin MD Active CELEXA 20 MG ORAL TABLET 1 tablet by mouth daily 09/26 CITALOPRAM HYDROBROMIDE 11552289489 No Longer Active Checo Conklin MD Active AZITHROMYCIN 250 MG ORAL TABLET 2 po qd x 1 day, then 1 po q d x 4 days AZITHROMYCIN 05301437254 No Longer Active Checo Ortiz MD Active HYDROCODONE-ACETAMINOPHEN 5-325 MG ORAL TABLET 1 po q 6hr PRN Pa in HYDROCODONE-ACETAMINOPHEN 29153528824 No Longer Active Lenora Conklin MD Active PHENAZOPYRIDINE HCL 200 MG ORAL TABLET take 1 tab po TID for bladder pain PHENAZOPYRIDINE HCL 50730779936 No Longer Active Joe Conklin MD Active CIPRO 500 MG ORAL TABLET 1 tablet by mouth twice daily CIPROFLOXACIN HCL 65851709948 No Longer Active Dangelo Rangel MD Active HYDROCODONE-ACETAMINOPHEN 5-325 MG ORAL TABLET 1/2 to 1 po q 4 hours prn cough HYDROCODONE-ACETAMINOPHEN 91629835315 No Longer Activ candy Rangel MD Active BACTRIM DS 800-160 MG ORAL TABLET 1 po BID x 7 days 29/04/10 SULFAMETHOXAZOLE-TRIMETHOPRIM 95150695792 No Longer Active Checo Conklin MD Active PREDNISONE 20 MG ORAL TABLET 2 tabs daily for 3 days, 1 tab daily for 3 days, 1/2 tab daily for 2 days PREDNISONE 54319708727 No Longer Active Checo Conklin MD Active TRIAMCINOLONE ACETONIDE 0.1 % EXTERNAL OINTMENT Apply to affected areas TID for up to 2 weeks TRIAMCINOLONE ACETONIDE 80639521850 No Longer Active Checo Conklin MD Active CEFDINIR 300 MG ORAL CAPSULE by mouth twice a day 2013 CEFDINIR 23496013187 No Longer Active Dangelo Rangel MD Acti ve BUPROPION HCL ER (SMOKING DET) 150 MG ORAL TABLET EXTE NDED RELEASE 12 HOUR 1 a day for 1 week then 1 twice a day BUPROPION HCL (SMOKING DETER) 81667795455 No Longer Active Checo Conklin MD Active SIMVASTATIN 20 MG ORAL TABLET 1 po qd SIMVASTAT IN 33685033573 Active Checo Conklin MD Active CHANTIX STARTING MONTH KARTHIK 0.5 MG X 11 & 1 MG X 42 ORA L TABLET 0.5mg daily for 3 days, then 0.5mg BID for 4 days, then 1mg BID VARENICLINE TARTRATE 73719295892 No Longer Active Checo Conklin MD Activ e XANAX 0.5 MG ORAL TABLET 1 po BID PRN anxiety A LPRAZOLAM 11735673385 Active Checo Conklin MD Active CONCERTA 18 MG ORAL TABLET EXTENDED RELEASE 1 po q a.m. METHYLPHENIDATE HCL 76836302477 No Longer Active Checo Conklin MD Active AMBIEN 5 MG ORAL TABLET 1 po qHS PRN Insomnia Z OLPIDEM TARTRATE 36946437971 Active Checo Conklin MD Active TRAZODONE HCL 100 MG ORAL TABLET 0.5 to 1 po qHS PRN Insomnia 20 30/07/08 TRAZODONE HCL 09192294886 No Longer Active Checo Conklin MD Active FIORICET 325-50-40 MG TAB 1 tablet by mouth four times daily as needed [id number] 38586831771 No Longer Active Checo Conklin MD Active PHENERGAN CREAM* 25mg applied to wrist q6hr PRN Nausea PHENERGAN CREAM* No Longer Active Checo Conklin MD A ctive FLONASE 50 MCG/ACT NASAL SUSPENSION 1 spray each nostril am and hs FLUTICASONE PROPIONATE 88717563566 No Longer Active Checo Conklin MD Active ANTIPYRINE-BENZOCAINE 5.4-1.4 % OTIC SOLUTION 1-2 drops in affec yohannes ear BENZOCAINE-ANTIPYRINE 30819242707 No Longer Active Checo Conklin MD Active CEFDINIR 300 MG ORAL CAPSULE 1 po bid CEFDINIR 19862865856 No Longer Active Checo Conklin MD Active PREDNISONE 20 MG ORAL TABLET 2 tabs daily for 3 days, 1 tab daily for 3 days, 1/2 tab daily for 2 days PREDNISONE 93124998127 No Longer Active Checo Conklin MD Active AZITHROMYCIN 250 MG ORAL TABLET 2 po qd x 1 day, then 1 po q d x 4 days AZITHROMYCIN 77604335200 No Longer Active Checo Ortiz MD Active PREDNISONE 20 MG ORAL TABLET 2 tabs daily for 3 days, 1 tab daily for 3 days, 1/2 tab daily for 2 days PREDNISONE 16777067444 No Longer Active Checo Conklin MD Active ZITHROMAX Z-KARTHIK 250 MG ORAL TABLET 2 today, then 1 daily for 4 d ays AZITHROMYCIN 76021886885 No Longer Active Paul Hamlin MD Active FOCALIN XR 10 MG ORAL CAPSULE EXTENDED RELEASE 24 HOUR 1 po q a. m. DEXMETHYLPHENIDATE HCL 76220369526 No Longer Active Paul Hamlin MD Active PERCOCET 10-325 MG ORAL TABLET 1 tablet every 6 hours as needed for pain OXYCODONE-ACETAMINOPHEN 55898384122 No Longer Active Paul Hamlin MD Active LORTAB 5-500 MG ORAL TABLET 1/2 to 1 tablet by mouth e very 4 hours as needed for pain HYDROCODONE-ACETAMINOPHEN 19607632728 No Longer Active Checo Conklin MD Active FOCALIN XR 15 MG ORAL CAPSULE EXTENDED RELEASE 24 HOUR 1 po q a. m. DEXMETHYLPHENIDATE HCL 93746907785 No Longer Active Checo Conklin MD Active ZOFRAN ODT 4 MG ORAL TABLET DISINTEGRATING 1 po q6hr PRN Nausea ONDANSETRON 10810894524 No Longer Active Checo Conklin MD Active PERCOCET 5-325 MG ORAL TABLET 1 tablet by mouth every 6 hour s as needed OXYCODONE-ACETAMINOPHEN 62171517908 No Longer Active Checo Conklin MD Active PYRIDIUM 200 MG ORAL TABLET take 1 tab po TID prn urinary pain. PHENAZOPYRIDINE HCL 19295124395 No Longer Active Checo Joshua Active FLUCONAZOLE 150 MG ORAL TABLET take 1 tab po qday once FLUCONAZOLE 32477899229 No Longer Active Dangelo Rangel MD Acti ve CIPRO 500 MG ORAL TABLET 1 tablet by mouth twice daily CIPROFLOXACIN HCL 61493307931 No Longer Active Dangelo Rangel MD Active PYRIDIUM 200 MG ORAL TABLET take 1 tab po TID prn urinary pain. PYRIDIUM 200 MG ORAL TABLET 5001148 PHENAZOPYRIDINE HCL Inactive PERCOCET 5-325 MG ORAL TABLET 1 tablet by mouth every 6 hour s as needed PERCOCET 5-325 MG ORAL TABLET 2737745 OXYCODONE-ACETAMINOPHEN Inactive ZOFRAN ODT 4 MG ORAL TABLET DISINTEGRATING 1 po q6hr PRN Nausea ZOFRAN ODT 4 MG ORAL TABLET DISINTEGRATING 067160 ONDAN SETRON Inactive FOCALIN XR 15 MG [...] for pain PERCOCET 10-325 MG ORAL TABLET 6166910 OXYCODONE-ACETAMI NOPHEN Inactive FOCALIN XR 10 MG ORAL CAPSULE EXTENDED RELEASE 24 HOUR 1 po q a. m. FOCALIN XR 10 MG ORAL CAPSULE EXTENDED RELEASE 24 HOUR DEXMETHYLPHENIDATE HCL Inactive CEFDINIR 300 MG ORAL CAPSULE 1 po bid CEFDINI R 300 MG ORAL CAPSULE 789606 CEFDINIR Inactive ANTIPYRINE-BENZOCAINE 5.4-1.4 % OTIC SOLUTION 1-2 drops in affec yohannes ear ANTIPYRINE-BENZOCAINE 5.4-1.4 % OTIC SOLUTION BENZOCAINE-ANTIPYRINE Inactive FLONASE 50 MCG/ACT NASAL SUSPENSION 1 spray each nostril am and hs FLONASE 50 MCG/ACT NASAL SUSPENSION 3569895 FLUTICASONE PROPIONATE I nactive PHENERGAN CREAM* 25mg applied to wrist q6hr PRN Nausea PHENERGAN CREAM* Inactive FIORICET 325-50-40 MG TAB 1 tablet by mouth four times daily as needed FIORICET 325-50-40 MG TAB ACETAMINOPHEN-C AFF-BUTALBITAL Inactive TRAZODONE HCL 100 MG ORAL TABLET 0.5 to 1 po qHS PRN Insomnia 20 30/07/08 TRAZODONE HCL 100 MG ORAL TABLET 426393 TRAZODONE HCL Inactive CONCERTA 18 MG ORAL [...] cough HYDROCODONE-ACETAMINOPHEN 5-325 MG ORAL TABLET 8 48635 HYDROCODONE-ACETAMINOPHEN Inactive PHENAZOPYRIDINE HCL 200 MG ORAL TABLET take 1 tab po TID for bladder pain PHENAZOPYRIDINE HCL 200 MG ORAL TABLET 2193913 PHENAZOPYRIDINE HCL Inactive HYDROCODONE-ACETAMINOPHEN 5-325 MG ORAL TABLET 1 po q 6hr PRN Pa in HYDROCODONE-ACETAMINOPHEN 5-325 MG ORAL TABLET 237562 HYDROCODONE-ACETAMINOPHEN Inactive CELEXA 20 MG ORAL TABLET 1 tablet by mouth daily 09/26 CELEXA 20 MG ORAL TABLET 312035 CITALOPRAM HYDROBROMIDE Inactive REGLAN 10 MG ORAL TABLET 1 po TID PRN Nausea 3 REGLAN 10 MG ORAL TABLET 976348 METOCLOPRAMIDE HCL Inactive LAMISIL 250 MG ORAL TABLET 1 po qd L AMISIL 250 MG ORAL TABLET 707904 TERBINAFINE HCL Inactive DICLOFENAC SODIUM 75 MG ORAL TABLET DELAYED RELEASE 1 tablet by mouth twice daily PRN Knee pain DICLOFENAC SODIUM 75 MG ORAL TABLET DELAYED RELEASE 676783 DICLOFENAC SODIUM Inactive METOCLOPRAMIDE HCL 10 MG ORAL TABLET take one PO tid PRN nausea METOCLOPRAMIDE HCL 10 MG ORAL TABLET 706349 METOCLOPRAM ZACH HCL Inactive TERBINAFINE HCL 250 MG ORAL TABLET take one table PO one time da moises TERBINAFINE HCL 250 MG ORAL TABLET 060684 TERBINAFINE H CL Inactive BUPROPION HCL ER [...] SICKNESS 25 M G ORAL TABLET CHEWABLE 048996 MECLIZINE HCL Inactive SUMATRIPTAN SUCCINATE 100 MG ORAL TABLET Take one PRN for migran e SUMATRIPTAN SUCCINATE 100 MG ORAL TABLET 652475 SUMATRIPTAN SUCCINATE Inactive COMPRO 25 MG RECTAL SUPPOSITORY insert or apply one garza ppository rectally as directed every 12 hours as needed for nausea COMPRO 25 MG RECTAL SUPPOSITORY 421412 PROCHLORPERAZINE Inactive ONDANSETRON 8 MG ORAL TABLET DISINTEGRATING place one tablet on tongue and allow to dissolve every 6 hours as needed for vomitting ONDANSETRON 8 MG ORAL TABLET DISINTEGRATING 777146 ONDANSETRON Inactive HYDROCODONE-ACETAMINOPHEN 5-325 MG ORAL TABLET 0.5 to 1 tab by mouth every 6 hours as needed HYDROCODONE-ACETAMIN OPHEN 5-325 MG ORAL TABLET 681160 HYDROCODONE-ACETAMINOPHEN Inactive BACTRIM DS 800-160 MG ORAL TABLET 1 tab by mouth twice daily 201 11/23/03 BACTRIM DS 800-160 MG ORAL TABLET 193547 TRIMETHOPRIM-SULFAMETHOXAZOLE Inactive DIFLUCAN 150 MG ORAL TABLET 1 tablet by mouth if neede d, hold until symptoms start DIFLUCAN 150 MG ORAL TABLET 560684 FLUCONAZ OLE Inactive IBUPROFEN 800 MG ORAL TABLET 1 tab every 8 hours with food 03/20 IBUPROFEN 800 MG ORAL TABLET 895268 IBUPROFEN Krupa ctive HYDROCODONE-ACETAMINOPHEN 5-325 MG ORAL TABLET 1 tab b y mouth every 6 hours as needed HYDROCODONE-ACETAMINOPHEN 5-325 MG ORAL TABLET 003071 HYDROCODONE-ACETAMINOPHEN Inactive BACTROBAN 2 % EXTERNAL CREAM Apply to affected area BID for up to 10 days BACTROBAN 2 % EXTERNAL CREAM 611625 MUPIROCIN CA LCIUM Inactive MAGNESIUM CITRATE 1.745 GM/30ML ORAL SOLUTION 150ml po BID P RN Constipation MAGNESIUM CITRATE 1.745 GM/30ML ORAL SOLUTION 10 18442 MAGNESIUM CITRATE Inactive DIFLUCAN 150 MG ORAL TABLET 1 tablet by mouth qod 2015 DIFLUCAN 150 MG ORAL TABLET 851139 FLUCONAZOLE Inactive BACTRIM DS 800-160 MG ORAL TABLET 1 tab by mouth twice daily 201 12/19/26 BACTRIM DS 800-160 MG ORAL TABLET 949682 TRIMETHOPRIM-SULFAMETHOXAZOLE Inactive CLARITIN 10 MG ORAL TABLET 1 tablet by mouth daily as needed for allergies CLARITIN 10 MG ORAL TABLET 561942 LORATADINE I nactive FLUTICASONE PROPIONATE 50 MCG/ACT NASAL SUSPENSION 2 s prays/nostril qd PRN Congestion/Allergies FLUTICASONE PROPION ATE 50 MCG/ACT NASAL SUSPENSION 5394757 FLUTICASONE PROPIONATE Inactive MIRALAX ORAL POWDER 8.5 to 17g po qd PRN Constipation MIRALAX ORAL POWDER 709237 POLYETHYLENE GLYCOL 3350 Inactive IBUPROFEN 800 MG ORAL TABLET 1 tab every 8 hours as needed for p ain IBUPROFEN 800 MG ORAL TABLET 436164 IBUPROFEN Krupa ctive HYDROCHLOROTHIAZIDE 12.5 MG ORAL CAPSULE 1 po qd PRN Edema 01/10 HYDROCHLOROTHIAZIDE 12.5 MG ORAL CAPSULE 852701 HYDROCH LOROTHIAZIDE Inactive CIPRO 500 MG ORAL TABLET 1 tablet by mouth twice daily CIPRO 500 MG ORAL TABLET 874457 CIPROFLOXACIN HCL Inactive FLUCONAZOLE 150 MG ORAL TABLET take 1 tab po qday once FLUCONAZOLE 150 MG ORAL TABLET 605043 FLUCONAZOLE Inactive ZITHROMAX Z-KARTHIK 250 MG ORAL TABLET 2 today, then 1 daily for 4 d ays ZITHROMAX Z-KARTHIK 250 MG ORAL TABLET 594022 AZITHROMYCIN Inactive PREDNISONE 20 MG ORAL TABLET 2 tabs daily for 3 days, 1 tab daily for 3 days, 1/2 tab daily for 2 days PREDNISONE 20 MG ORAL T ABLET 879909 PREDNISONE Inactive AZITHROMYCIN 250 MG ORAL TABLET 2 po qd x 1 day, then 1 po q d x 4 days AZITHROMYCIN 250 MG ORAL TABLET 873670 AZITHROMY SPARKLE Inactive PREDNISONE 20 MG ORAL TABLET 2 tabs daily for 3 days, 1 tab daily for 3 days, 1/2 tab daily for 2 days PREDNISONE 20 MG ORAL TABLET 664057 PREDNISONE Inactive CEFDINIR 300 MG ORAL CAPSULE by mouth twice a day 2013 CEFDINIR 300 MG ORAL CAPSULE 953159 CEFDINIR Inactive TRIAMCINOLONE ACETONIDE 0.1 % EXTERNAL OINTMENT Apply to affected areas TID for up to 2 weeks TRIAMCINOLONE ACETON ZACH 0.1 % EXTERNAL OINTMENT 9160509 TRIAMCINOLONE ACETONIDE Inactive PREDNISONE 20 MG ORAL TABLET 2 tabs daily for 3 days, 1 tab daily for 3 days, 1/2 tab daily for 2 days PREDNISONE 20 MG ORAL T ABLET 186894 PREDNISONE Inactive BACTRIM DS 800-160 MG ORAL TABLET 1 po BID x 7 days 29/04/10 BACTRIM DS 800-160 MG ORAL TABLET 667604 SULFAMETHOXAZOLE-TRIMETHOP RIM Inactive CIPRO 500 MG ORAL TABLET 1 tablet by mouth twice daily CIPRO 500 MG ORAL TABLET 826169 CIPROFLOXACIN HCL Inactive AZITHROMYCIN 250 MG ORAL TABLET 2 po qd x 1 day, then 1 po q d x 4 days AZITHROMYCIN 250 MG ORAL TABLET 162892 AZITHROMY SPARKLE Inactive FLAGYL 500 MG ORAL TABLET 1 tablet by mouth bid 04/13 FLAGYL 500 MG ORAL TABLET 074562 METRONIDAZOLE Inactive AZITHROMYCIN 250 MG ORAL TABLET 2 po qd x 1 day, then 1 po q d x 4 days AZITHROMYCIN 250 MG ORAL TABLET 737221 AZITHROMY SPARKLE Inactive AMOXICILLIN 500 MG ORAL CAPSULE 2 po BID x 10 days 201 01/15/27 AMOXICILLIN 500 MG ORAL CAPSULE 136788 AMOXICILLIN Inactive AMOXICILLIN 500 MG ORAL CAPSULE 2 po BID x 14 days for H. Pylori AMOXICILLIN 500 MG ORAL CAPSULE 244086 AMOXICILLIN Inactive CLARITHROMYCIN 500 MG ORAL TABLET 1 tab po BID x 14 days CLARITHROMYCIN 500 MG ORAL TABLET 461423 CLARITHROMYCIN Inacti ve FLAGYL 500 MG ORAL TABLET 1 tablet by mouth bid 08/29 FLAGYL 500 MG ORAL TABLET 540142 METRONIDAZOLE Inactive PROTONIX 40 MG ORAL TABLET DELAYED RELEASE 1 pill by m outh daily, for acid reflux PROTONIX 40 MG ORAL TABLET DELAYED RELEAS E 268992 PANTOPRAZOLE SODIUM Inactive Immunizations Vaccine Administration Date [...] ... - Chemistry sodium, serum 138 mmol/L 966-935 4506/06/27 carbon dioxide, venous blood 30.3 mmol/L 21.0-32 [...] ... - Chemistry sodium, serum 139 mmol/L 752-724 7034/11/28 carbon dioxide, venous blood 26.0 mmol/L 21.0-32 [...] 5.0-8.5 Encounters Code Encounter Date Provider Facility CPT-11016 Level 3 Est. Patient 16:46:51 CDT Thomas reynolds DO [facility] CPT-05335 [id number] Vst-Est Level III 14:40:49 CDT Paul Hamlin MD [facility] CPT-19876 Level 4 Est. Patient 11:08:43 CDT Checo Conklin MD [facility]-05628 [id number] Vst-Est Level III 09:37:41 CDT Dangelo Rangel MD [facility] CPT-01092 Level 4 Est. Patient 08:57:51 DEHYDRATING PRESS OPERATOR Checo Conklin MD [facility] CPT-09224 Level 3 Est. Patient 11:24:55 DEHYDRATING PRESS OPERATOR Efren almendarez [facility] CPT-95478 Level 3 Est. Patient 13:05:44 CDT Paul Hamlin MD [facility] CPT-21239 Level 3 Est. Patient 11:29:55 CDT Checo Conklin MD [facility] CPT-37976 Level 4 Est. Patient 11:08:12 DEHYDRATING PRESS OPERATOR Checo Conklin MD [facility] CPT-63894 Level 4 Est. Patient 16:06:48 DEHYDRATING PRESS OPERATOR Checo Conklin MD [facility] CPT-99989 Level 3 Est. Patient 09:11:49 CDT Efren almendarez [facility]-90754 Level 2 Est. Patient 19:53:27 CDT Tanner hill MD [facility] CPT-34699 Level 3 Est. Patient 09:15:34 CDT Efren almendarez [facility]-88190 Level 3 Est. Patient 11:28:51 DEHYDRATING PRESS OPERATOR Efren almendarez APRN [facility] CPT-74163 Level 4 Est. Patient 13:55:46 DEHYDRATING PRESS OPERATOR Checo Conklin MD [facility] CPT-03733 Level 4 Est. Patient 17:10:53 CDT Checo Conklin MD [facility] CPT-94902 Level 3 Est. Patient 15:56:22 CDT Checo Conklin MD [facility] CPT-05758 Level 3 Est. Patient 15:29:07 CDT Checo Conklin MD [facility] CPT-20227 Level 3 Est. Patient 14:38:41 CDT Checo Conklin MD [facility] CPT-64190 Level 3 Est. Patient 15:22:03 DEHYDRATING PRESS OPERATOR Thomas reynolds DO [facility] CPT-00239 Level 3 Est. Patient 13:34:17 DEHYDRATING PRESS OPERATOR Checo Conklin MD [facility] CPT-54509 Level 3 Est. Patient 12:29:32 CDT Dangelo arroyo MD [facility]-36701 Level 3 Est. Patient 16:53:02 CDT Checo Conklin MD [facility] CPT-21326 Level 3 Est. Patient 16:37:13 CDT Checo Conklin MD [facility] CPT-25679 Level 3 Est. Patient 16:16:59 CDT Paul Hamlin MD [facility] CPT-98526 Level 3 Est. Patient 14:20:13 CDT Dangelo arroyo MD [facility] CPT-99458 Level 4 Est. Patient 11:29:33 CDT Checo Conklin MD [facility] CPT-45700 Level 3 Est. Patient 17:08:31 CDT Checo Conklin MD [facility] CPT-01403 Level 3 Est. Patient 16:50:42 DEHYDRATING PRESS OPERATOR Checo Conklin MD [facility] CPT-64493 Level 4 Est. Patient 09:26:08 DEHYDRATING PRESS OPERATOR Checo Conklin MD [facility] CPT-44739 Level 3 Est. Patient 11:37:10 CDT Checo Conklin MD [facility] CPT-65626 Level 4 Est. Patient 14:07:38 CDT Checo Conklin MD [facility] CPT-07865 Level 3 Est. Patient 09:54:41 CDT Checo Conklin MD [facility] CPT-38312 Level 3 Est. Patient 11:10:54 CDT Paul Hamlin MD [facility] CPT-03048 Level 3 Est. Patient 14:16:56 DEHYDRATING PRESS OPERATOR Checo Conklin MD [facility] CPT-82785 Level 3 Est. Patient 11:04:11 DEHYDRATING PRESS OPERATOR Checo Conklin MD [facility] CPT-28107 Level 3 Est. Patient 17:09:26 CDT Dangelo arroyo MD [facility] CPT-02944 Level 3 Est. Patient 16:54:37 CDT Checo Conklin MD [facility] Procedures Code Procedure Name Date Entry Date Standard Desc ription CPT-16546 Abx/Therapy Injection 09:52:15 CDT CPT-43185 Abx/Therapy Injection 18:17:48 CDT CPT-J2550 Phenergan 25 mg (Promethazine) 16:48:23 CDT CPT-J1885 Toradol 60 mg 16:48:23 CDT CPT-07212 Wrist, right, comp 3V - XRAY USE ONLY 09:24:31 CDT CPT-01455 Abd compl w upright - XRAY USE ONLY 1 1:36:54 DEHYDRATING PRESS OPERATOR CPT-31034 UA w micro - LAB USE ONLY 17:06:46 CDT 2015 CPT-88825 [facility]CG Qual - LAB USE ONLY 17:06:46 CDT 05/06 CPT-04804 CMP - LAB USE ONLY 17:06:46 CDT CPT-07209 CBC with Diff - LAB USE ONLY 17:06:45 CDT 2 CPT-68281 Venipuncture Draw Fee 17:06:45 CDT CPT-LR Lesion Removal 19:53:27 CDT CPT-OV Office Visit 11:31:28 CDT CPT-48051 Tubersol 09:39:29 CDT CPT-J2550 Phenergan 25 mg (Promethazine) 13:59:02 DEHYDRATING PRESS OPERATOR CPT-J1885 Toradol 60 mg (Ketorolac) 13:59:02 DEHYDRATING PRESS OPERATOR 2012
--- OUTSIDE RECORDS SUMMARY | 2019-09-29 01:20 | XMS REPORT | Clinical Summary ---
Author Author Admin, Bethany Gonzales Organization [employer] Address Unknown Phone Unavailable Allergies, Adverse Reactions, [...] ICD-307.81 Inactive Checo Conklin MD PHARYNGITIS ICD-462 Ozzy Conklin MD Hypoglycemia, unspecified ICD-251.2 Ozzy Conklin MD Insomnia ICD-780.52 Inactive Checo Joshua OTITIS MEDIA-RIGHT ICD-382.9 Ozzy Conklin MD Breast mass, right ICD-611.72 Inactive Checo Conklin MD Onychomycosis, toenails ICD-110.1 Ozzy Conklin MD Sinusitis ICD-461.9 Inactive Checo Conklin MD Insect bite ICD-919.4 Inactive Checo Conklin MD Carbuncle/furuncle NOS ICD-680.9 Inactive Hilaria Conklin MD Mastalgia ICD-611.71 Inactive Checo Joshua Knee pain, right ICD-719.46 Inactive Checo gallagher MD Vertigo ICD-780.4 Inactive Checo Conkiln MD 2014 Abscess, skin ICD-682.9 Inactive Checo richey MD BRONCHITIS, ACUTE ICD-466.0 Inactive Checo gallagher MD Abdominal pain ICD-789.00 Inactive Checo ngo MD Cough ICD-786.2 Inactive Checo Conklin [...] ICD-787.02 Inactive Checo Conklin MD 201 02/15/12 Pharyngitis ICD-462 Inactive Checo Conklin MD Sinusitis, acute ICD-461.9 Inactive Checo Ortiz MD Body Mass Index 25.0-25.9 Adult Inac tive Paul Hamlin MD Medication List Medication Instructions Start Date Stop Date Generic Name NDC Status Provider Patient Instruction KLOR-CON 10 10 MEQ ORAL TABLET EXTENDED RELEASE 1 daily with furosemide POTASSIUM CHLORIDE 45973924035 Active Paul Hamlin MD Active FUROSEMIDE 20 MG ORAL TABLET 1 daily for swelling FUROSEMIDE 50996936374 Active Paul Hamlin MD Active HYDROCHLOROTHIAZIDE 12.5 MG ORAL CAPSULE 1 po qd PRN Edema 01/10 HYDROCHLOROTHIAZIDE 36155271517 No Longer Active Paul Hamlin MD Active IBUPROFEN 800 MG ORAL TABLET 1 tab every 8 hours as needed for p ain IBUPROFEN 87169085923 No Longer Active Paul Hamlin MD Active PAROXETINE HCL 40 MG ORAL TABLET 1 po qd PAR OXETINE HCL 78796106509 Active Checo Conklin MD Active MIRALAX ORAL POWDER 8.5 to 17g po qd PRN Constipation POLYETHYLENE GLYCOL 3350 58863275818 No Longer Active Checo Conklin MD Active PROTONIX 40 MG ORAL TABLET DELAYED RELEASE 1 pill by m outh daily, for acid reflux PANTOPRAZOLE SODIUM 17404135912 No Longer Activ e Corry Méndez LPN Active FLAGYL 500 MG ORAL TABLET 1 tablet by mouth bid 08/29 METRONIDAZOLE 10843627721 No Longer Active Corry Méndez LPN Active CLARITHROMYCIN 500 MG ORAL TABLET 1 tab po BID x 14 days CLARITHROMYCIN 20635746907 No Longer Active Corry Méndez LPN Active AMOXICILLIN 500 MG ORAL CAPSULE 2 po BID x 14 days for H. Pylori AMOXICILLIN 14808905499 No Longer Active Corry Méndez LPN Active FLUTICASONE PROPIONATE 50 MCG/ACT NASAL SUSPENSION 2 s prays/nostril qd PRN Congestion/Allergies FLUTICASONE PROPIONATE 3729507392 9 No Longer Active Checo Conklin MD Active AMOXICILLIN 500 MG ORAL CAPSULE 2 po BID x 10 days 201 01/15/27 AMOXICILLIN 00818877932 No Longer Active Checo Conklin MD Activ e CLARITIN 10 MG ORAL TABLET 1 tablet by mouth daily as needed for allergies LORATADINE 84984746893 No Longer Active Checo Ortiz MD Active BACTRIM DS 800-160 MG ORAL TABLET 1 tab by mouth twice daily 201 12/19/26 TRIMETHOPRIM-SULFAMETHOXAZOLE 57935419843 No Longer Active Ragini Carrillo MD Active DIFLUCAN 150 MG ORAL TABLET 1 tablet by mouth qod 2015 FLUCONAZOLE 23676758181 No Longer Active Efren Medel QA AUTOMATION ENGINEER Act mike AZITHROMYCIN 250 MG ORAL TABLET 2 po qd x 1 day, then 1 po q d x 4 days AZITHROMYCIN 22846511622 No Longer Active Efren flores QA AUTOMATION ENGINEER Active FLAGYL 500 MG ORAL TABLET 1 tablet by mouth bid 04/13 METRONIDAZOLE 23123150812 No Longer Active Checo Conklin MD Acti ve FOCALIN XR 10 MG ORAL CAPSULE EXTENDED RELEASE 24 HOUR 1 po q a.m. DEXMETHYLPHENIDATE HCL 52460768520 Active Checo Conklin MD Active MAGNESIUM CITRATE 1.745 GM/30ML ORAL SOLUTION 150ml po BID P RN Constipation MAGNESIUM CITRATE 75719951410 No Longer Active Checo Conklin MD Active BACTROBAN 2 % EXTERNAL CREAM Apply to affected area BID for up to 10 days MUPIROCIN CALCIUM 25344824439 No Longer Active Checo Conklin MD Active HYDROCODONE-ACETAMINOPHEN 5-325 MG ORAL TABLET 1 tab b y mouth every 6 hours as needed HYDROCODONE-ACETAMINOPHEN 51054174425 No Longer Active Checo Conklin MD Active IBUPROFEN 800 MG ORAL TABLET 1 tab every 8 hours with food 03/20 IBUPROFEN 57887387119 No Longer Active Checo Conklin MD Active DIFLUCAN 150 MG ORAL TABLET 1 tablet by mouth if neede d, hold until symptoms start FLUCONAZOLE 52811355270 No Longer Active Checo Conklin MD Active BACTRIM DS 800-160 MG ORAL TABLET 1 tab by mouth twice daily 201 11/23/03 TRIMETHOPRIM-SULFAMETHOXAZOLE 70625716799 No Longer Active K bernice Méndez LPN Active HYDROCODONE-ACETAMINOPHEN 5-325 MG ORAL TABLET 0.5 to 1 tab by mouth every 6 hours as needed HYDROCODONE-ACETAMINOPHEN 47004251020 No Longer Active Checo Conklin MD Active ONDANSETRON 8 MG ORAL TABLET DISINTEGRATING place one tablet on tongue and allow to dissolve every 6 hours as needed for vomitting ONDANSETRON 37137427501 No Longer Active Checo Conklin MD Activ e COMPRO 25 MG RECTAL SUPPOSITORY insert or apply one garza ppository rectally as directed every 12 hours as needed for nausea PROCHLORPERAZINE 77012576820 No Longer Active Checo Conklin MD A ctive SUMATRIPTAN SUCCINATE 100 MG ORAL TABLET Take one PRN for migran e SUMATRIPTAN SUCCINATE 26277394851 No Longer Active Checo Conklin MD Active TRAVEL SICKNESS 25 MG ORAL TABLET CHEWABLE chew and sw allow one tablet every 6 hours as needed MECLIZINE HCL 68365962404 No Longer A ctive Checo Conklin MD Active BUPROPION HCL ER (SR) 100 MG ORAL TABLET EXTENDED RELE ASE 12 HOUR take one tablet by mouth one time daily for one week then take 1 two times daily BUPROPION HCL 98834410633 No Longer Active Checo gallagher MD Active TERBINAFINE HCL 250 MG ORAL TABLET take one table PO one time da moises TERBINAFINE HCL 68803690216 No Longer Active Checo Conklin MD Active METOCLOPRAMIDE HCL 10 MG ORAL TABLET take one PO tid PRN nausea METOCLOPRAMIDE HCL 95885230569 No Longer Active Checo Conklin MD Active DICLOFENAC SODIUM 75 MG ORAL TABLET DELAYED RELEASE 1 tablet by mouth twice daily PRN Knee pain DICLOFENAC SODIUM 48470817877 No Longer Active Checo Conklin MD Active LAMISIL 250 MG ORAL TABLET 1 po qd TERBINAFI NE HCL 45802517190 No Longer Active Checo Conklin MD Active REGLAN 10 MG ORAL TABLET 1 po TID PRN Nausea 3 METOCLOPRAMIDE HCL 01102348823 No Longer Active Checo Conklin MD Active CELEXA 20 MG ORAL TABLET 1 tablet by mouth daily 09/26 CITALOPRAM HYDROBROMIDE 54102633695 No Longer Active Checo Conklin MD Active AZITHROMYCIN 250 MG ORAL TABLET 2 po qd x 1 day, then 1 po q d x 4 days AZITHROMYCIN 25293843199 No Longer Active Checo Ortiz MD Active HYDROCODONE-ACETAMINOPHEN 5-325 MG ORAL TABLET 1 po q 6hr PRN Pa in HYDROCODONE-ACETAMINOPHEN 71710809791 No Longer Active Lenora Conklin MD Active PHENAZOPYRIDINE HCL 200 MG ORAL TABLET take 1 tab po TID for bladder pain PHENAZOPYRIDINE HCL 82245700300 No Longer Active Joe Conklin MD Active CIPRO 500 MG ORAL TABLET 1 tablet by mouth twice daily CIPROFLOXACIN HCL 52264617306 No Longer Active Dangelo Rangel MD Active HYDROCODONE-ACETAMINOPHEN 5-325 MG ORAL TABLET 1/2 to 1 po q 4 hours prn cough HYDROCODONE-ACETAMINOPHEN 94683286758 No Longer Activ candy Rangel MD Active BACTRIM DS 800-160 MG ORAL TABLET 1 po BID x 7 days 29/04/10 SULFAMETHOXAZOLE-TRIMETHOPRIM 52696531760 No Longer Active Checo Conklin MD Active PREDNISONE 20 MG ORAL TABLET 2 tabs daily for 3 days, 1 tab daily for 3 days, 1/2 tab daily for 2 days PREDNISONE 67227513897 No Longer Active Checo Conklin MD Active TRIAMCINOLONE ACETONIDE 0.1 % EXTERNAL OINTMENT Apply to affected areas TID for up to 2 weeks TRIAMCINOLONE ACETONIDE 77406987538 No Longer Active Checo Conklin MD Active CEFDINIR 300 MG ORAL CAPSULE by mouth twice a day 2013 CEFDINIR 60137212709 No Longer Active Dangelo Rangel MD Acti ve BUPROPION HCL ER (SMOKING DET) 150 MG ORAL TABLET EXTE NDED RELEASE 12 HOUR 1 a day for 1 week then 1 twice a day BUPROPION HCL (SMOKING DETER) 06550283383 No Longer Active Checo Conklin MD Active SIMVASTATIN 20 MG ORAL TABLET 1 po qd SIMVASTAT IN 04483057329 Active Checo Conklin MD Active CHANTIX STARTING MONTH KARTHIK 0.5 MG X 11 & 1 MG X 42 ORA L TABLET 0.5mg daily for 3 days, then 0.5mg BID for 4 days, then 1mg BID VARENICLINE TARTRATE 69732410463 No Longer Active Checo Conklin MD Activ e XANAX 0.5 MG ORAL TABLET 1 po BID PRN anxiety A LPRAZOLAM 19026606255 Active Checo Conklin MD Active CONCERTA 18 MG ORAL TABLET EXTENDED RELEASE 1 po q a.m. METHYLPHENIDATE HCL 48723219532 No Longer Active Checo Conklin MD Active AMBIEN 5 MG ORAL TABLET 1 po qHS PRN Insomnia Z OLPIDEM TARTRATE 60265043951 Active Checo Conklin MD Active TRAZODONE HCL 100 MG ORAL TABLET 0.5 to 1 po qHS PRN Insomnia 20 30/07/08 TRAZODONE HCL 10390102003 No Longer Active Checo Conklin MD Active FIORICET 325-50-40 MG TAB 1 tablet by mouth four times daily as needed [id number] 28332565162 No Longer Active Checo Conklin MD Active PHENERGAN CREAM* 25mg applied to wrist q6hr PRN Nausea PHENERGAN CREAM* No Longer Active Checo Conklin MD A ctive FLONASE 50 MCG/ACT NASAL SUSPENSION 1 spray each nostril am and hs FLUTICASONE PROPIONATE 96189398664 No Longer Active Checo Conklin MD Active ANTIPYRINE-BENZOCAINE 5.4-1.4 % OTIC SOLUTION 1-2 drops in affec yohannes ear BENZOCAINE-ANTIPYRINE 20914998744 No Longer Active Checo Conklin MD Active CEFDINIR 300 MG ORAL CAPSULE 1 po bid CEFDINIR 48352390291 No Longer Active Checo Conklin MD Active PREDNISONE 20 MG ORAL TABLET 2 tabs daily for 3 days, 1 tab daily for 3 days, 1/2 tab daily for 2 days PREDNISONE 81958771819 No Longer Active Checo Conklin MD Active AZITHROMYCIN 250 MG ORAL TABLET 2 po qd x 1 day, then 1 po q d x 4 days AZITHROMYCIN 25967361797 No Longer Active Checo Ortiz MD Active PREDNISONE 20 MG ORAL TABLET 2 tabs daily for 3 days, 1 tab daily for 3 days, 1/2 tab daily for 2 days PREDNISONE 80606961186 No Longer Active Checo Conklin MD Active ZITHROMAX Z-KARTHIK 250 MG ORAL TABLET 2 today, then 1 daily for 4 d ays AZITHROMYCIN 53494481780 No Longer Active Paul Hamlin MD Active FOCALIN XR 10 MG ORAL CAPSULE EXTENDED RELEASE 24 HOUR 1 po q a. m. DEXMETHYLPHENIDATE HCL 15338522261 No Longer Active Paul Hamlin MD Active PERCOCET 10-325 MG ORAL TABLET 1 tablet every 6 hours as needed for pain OXYCODONE-ACETAMINOPHEN 95185112937 No Longer Active Paul Hamlin MD Active LORTAB 5-500 MG ORAL TABLET 1/2 to 1 tablet by mouth e very 4 hours as needed for pain HYDROCODONE-ACETAMINOPHEN 42498224285 No Longer Active Checo Conklin MD Active FOCALIN XR 15 MG ORAL CAPSULE EXTENDED RELEASE 24 HOUR 1 po q a. m. DEXMETHYLPHENIDATE HCL 89451808773 No Longer Active Checo Conklin MD Active ZOFRAN ODT 4 MG ORAL TABLET DISINTEGRATING 1 po q6hr PRN Nausea ONDANSETRON 48918641316 No Longer Active Checo Conklin MD Active PERCOCET 5-325 MG ORAL TABLET 1 tablet by mouth every 6 hour s as needed OXYCODONE-ACETAMINOPHEN 67015156757 No Longer Active Checo Conklin MD Active PYRIDIUM 200 MG ORAL TABLET take 1 tab po TID prn urinary pain. PHENAZOPYRIDINE HCL 36087251099 No Longer Active Checo Joshua Active FLUCONAZOLE 150 MG ORAL TABLET take 1 tab po qday once FLUCONAZOLE 92017916672 No Longer Active Dangelo Rangel MD Acti ve CIPRO 500 MG ORAL TABLET 1 tablet by mouth twice daily CIPROFLOXACIN HCL 07443557540 No Longer Active Dangelo Rangel MD Active PYRIDIUM 200 MG ORAL TABLET take 1 tab po TID prn urinary pain. PYRIDIUM 200 MG ORAL TABLET 2150835 PHENAZOPYRIDINE HCL Inactive PERCOCET 5-325 MG ORAL TABLET 1 tablet by mouth every 6 hour s as needed PERCOCET 5-325 MG ORAL TABLET 6651048 OXYCODONE-ACETAMINOPHEN Inactive ZOFRAN ODT 4 MG ORAL TABLET DISINTEGRATING 1 po q6hr PRN Nausea ZOFRAN ODT 4 MG ORAL TABLET DISINTEGRATING 819414 ONDAN SETRON Inactive FOCALIN XR 15 MG [...] for pain PERCOCET 10-325 MG ORAL TABLET 3934899 OXYCODONE-ACETAMI NOPHEN Inactive FOCALIN XR 10 MG ORAL CAPSULE EXTENDED RELEASE 24 HOUR 1 po q a. m. FOCALIN XR 10 MG ORAL CAPSULE EXTENDED RELEASE 24 HOUR DEXMETHYLPHENIDATE HCL Inactive CEFDINIR 300 MG ORAL CAPSULE 1 po bid CEFDINI R 300 MG ORAL CAPSULE 317690 CEFDINIR Inactive ANTIPYRINE-BENZOCAINE 5.4-1.4 % OTIC SOLUTION 1-2 drops in affec yohannes ear ANTIPYRINE-BENZOCAINE 5.4-1.4 % OTIC SOLUTION BENZOCAINE-ANTIPYRINE Inactive FLONASE 50 MCG/ACT NASAL SUSPENSION 1 spray each nostril am and hs FLONASE 50 MCG/ACT NASAL SUSPENSION 3693643 FLUTICASONE PROPIONATE I nactive PHENERGAN CREAM* 25mg applied to wrist q6hr PRN Nausea PHENERGAN CREAM* Inactive FIORICET 325-50-40 MG TAB 1 tablet by mouth four times daily as needed FIORICET 325-50-40 MG TAB ACETAMINOPHEN-C AFF-BUTALBITAL Inactive TRAZODONE HCL 100 MG ORAL TABLET 0.5 to 1 po qHS PRN Insomnia 20 30/07/08 TRAZODONE HCL 100 MG ORAL TABLET 495781 TRAZODONE HCL Inactive CONCERTA 18 MG ORAL [...] cough HYDROCODONE-ACETAMINOPHEN 5-325 MG ORAL TABLET 8 87534 HYDROCODONE-ACETAMINOPHEN Inactive PHENAZOPYRIDINE HCL 200 MG ORAL TABLET take 1 tab po TID for bladder pain PHENAZOPYRIDINE HCL 200 MG ORAL TABLET 8656562 PHENAZOPYRIDINE HCL Inactive HYDROCODONE-ACETAMINOPHEN 5-325 MG ORAL TABLET 1 po q 6hr PRN Pa in HYDROCODONE-ACETAMINOPHEN 5-325 MG ORAL TABLET 784413 HYDROCODONE-ACETAMINOPHEN Inactive CELEXA 20 MG ORAL TABLET 1 tablet by mouth daily 09/26 CELEXA 20 MG ORAL TABLET 476549 CITALOPRAM HYDROBROMIDE Inactive REGLAN 10 MG ORAL TABLET 1 po TID PRN Nausea 3 REGLAN 10 MG ORAL TABLET 154845 METOCLOPRAMIDE HCL Inactive LAMISIL 250 MG ORAL TABLET 1 po qd L AMISIL 250 MG ORAL TABLET 365816 TERBINAFINE HCL Inactive DICLOFENAC SODIUM 75 MG ORAL TABLET DELAYED RELEASE 1 tablet by mouth twice daily PRN Knee pain DICLOFENAC SODIUM 75 MG ORAL TABLET DELAYED RELEASE 637514 DICLOFENAC SODIUM Inactive METOCLOPRAMIDE HCL 10 MG ORAL TABLET take one PO tid PRN nausea METOCLOPRAMIDE HCL 10 MG ORAL TABLET 839330 METOCLOPRAM ZACH HCL Inactive TERBINAFINE HCL 250 MG ORAL TABLET take one table PO one time da moises TERBINAFINE HCL 250 MG ORAL TABLET 363380 TERBINAFINE H CL Inactive BUPROPION HCL ER [...] SICKNESS 25 M G ORAL TABLET CHEWABLE 180151 MECLIZINE HCL Inactive SUMATRIPTAN SUCCINATE 100 MG ORAL TABLET Take one PRN for migran e SUMATRIPTAN SUCCINATE 100 MG ORAL TABLET 081669 SUMATRIPTAN SUCCINATE Inactive COMPRO 25 MG RECTAL SUPPOSITORY insert or apply one garza ppository rectally as directed every 12 hours as needed for nausea COMPRO 25 MG RECTAL SUPPOSITORY 073381 PROCHLORPERAZINE Inactive ONDANSETRON 8 MG ORAL TABLET DISINTEGRATING place one tablet on tongue and allow to dissolve every 6 hours as needed for vomitting ONDANSETRON 8 MG ORAL TABLET DISINTEGRATING 645814 ONDANSETRON Inactive HYDROCODONE-ACETAMINOPHEN 5-325 MG ORAL TABLET 0.5 to 1 tab by mouth every 6 hours as needed HYDROCODONE-ACETAMIN OPHEN 5-325 MG ORAL TABLET 310605 HYDROCODONE-ACETAMINOPHEN Inactive BACTRIM DS 800-160 MG ORAL TABLET 1 tab by mouth twice daily 201 11/23/03 BACTRIM DS 800-160 MG ORAL TABLET 273322 TRIMETHOPRIM-SULFAMETHOXAZOLE Inactive DIFLUCAN 150 MG ORAL TABLET 1 tablet by mouth if neede d, hold until symptoms start DIFLUCAN 150 MG ORAL TABLET 796399 FLUCONAZ OLE Inactive IBUPROFEN 800 MG ORAL TABLET 1 tab every 8 hours with food 03/20 IBUPROFEN 800 MG ORAL TABLET 068324 IBUPROFEN Krupa ctive HYDROCODONE-ACETAMINOPHEN 5-325 MG ORAL TABLET 1 tab b y mouth every 6 hours as needed HYDROCODONE-ACETAMINOPHEN 5-325 MG ORAL TABLET 012470 HYDROCODONE-ACETAMINOPHEN Inactive BACTROBAN 2 % EXTERNAL CREAM Apply to affected area BID for up to 10 days BACTROBAN 2 % EXTERNAL CREAM 830327 MUPIROCIN CA LCIUM Inactive MAGNESIUM CITRATE 1.745 GM/30ML ORAL SOLUTION 150ml po BID P RN Constipation MAGNESIUM CITRATE 1.745 GM/30ML ORAL SOLUTION 10 99582 MAGNESIUM CITRATE Inactive DIFLUCAN 150 MG ORAL TABLET 1 tablet by mouth qod 2015 DIFLUCAN 150 MG ORAL TABLET 824507 FLUCONAZOLE Inactive BACTRIM DS 800-160 MG ORAL TABLET 1 tab by mouth twice daily 201 12/19/26 BACTRIM DS 800-160 MG ORAL TABLET 690483 TRIMETHOPRIM-SULFAMETHOXAZOLE Inactive CLARITIN 10 MG ORAL TABLET 1 tablet by mouth daily as needed for allergies CLARITIN 10 MG ORAL TABLET 196132 LORATADINE I nactive FLUTICASONE PROPIONATE 50 MCG/ACT NASAL SUSPENSION 2 s prays/nostril qd PRN Congestion/Allergies FLUTICASONE PROPION ATE 50 MCG/ACT NASAL SUSPENSION 4642638 FLUTICASONE PROPIONATE Inactive MIRALAX ORAL POWDER 8.5 to 17g po qd PRN Constipation MIRALAX ORAL POWDER 358772 POLYETHYLENE GLYCOL 3350 Inactive IBUPROFEN 800 MG ORAL TABLET 1 tab every 8 hours as needed for p ain IBUPROFEN 800 MG ORAL TABLET 264880 IBUPROFEN Krupa ctive HYDROCHLOROTHIAZIDE 12.5 MG ORAL CAPSULE 1 po qd PRN Edema 01/10 HYDROCHLOROTHIAZIDE 12.5 MG ORAL CAPSULE 219114 HYDROCH LOROTHIAZIDE Inactive CIPRO 500 MG ORAL TABLET 1 tablet by mouth twice daily CIPRO 500 MG ORAL TABLET 035310 CIPROFLOXACIN HCL Inactive FLUCONAZOLE 150 MG ORAL TABLET take 1 tab po qday once FLUCONAZOLE 150 MG ORAL TABLET 320157 FLUCONAZOLE Inactive ZITHROMAX Z-KARTHIK 250 MG ORAL TABLET 2 today, then 1 daily for 4 d ays ZITHROMAX Z-KARTHIK 250 MG ORAL TABLET 834867 AZITHROMYCIN Inactive PREDNISONE 20 MG ORAL TABLET 2 tabs daily for 3 days, 1 tab daily for 3 days, 1/2 tab daily for 2 days PREDNISONE 20 MG ORAL T ABLET 653498 PREDNISONE Inactive AZITHROMYCIN 250 MG ORAL TABLET 2 po qd x 1 day, then 1 po q d x 4 days AZITHROMYCIN 250 MG ORAL TABLET 167279 AZITHROMY SPARKLE Inactive PREDNISONE 20 MG ORAL TABLET 2 tabs daily for 3 days, 1 tab daily for 3 days, 1/2 tab daily for 2 days PREDNISONE 20 MG ORAL TABLET 339997 PREDNISONE Inactive CEFDINIR 300 MG ORAL CAPSULE by mouth twice a day 2013 CEFDINIR 300 MG ORAL CAPSULE 509839 CEFDINIR Inactive TRIAMCINOLONE ACETONIDE 0.1 % EXTERNAL OINTMENT Apply to affected areas TID for up to 2 weeks TRIAMCINOLONE ACETON ZACH 0.1 % EXTERNAL OINTMENT 9542080 TRIAMCINOLONE ACETONIDE Inactive PREDNISONE 20 MG ORAL TABLET 2 tabs daily for 3 days, 1 tab daily for 3 days, 1/2 tab daily for 2 days PREDNISONE 20 MG ORAL T ABLET 129372 PREDNISONE Inactive BACTRIM DS 800-160 MG ORAL TABLET 1 po BID x 7 days 29/04/10 BACTRIM DS 800-160 MG ORAL TABLET 227832 SULFAMETHOXAZOLE-TRIMETHOP RIM Inactive CIPRO 500 MG ORAL TABLET 1 tablet by mouth twice daily CIPRO 500 MG ORAL TABLET 728055 CIPROFLOXACIN HCL Inactive AZITHROMYCIN 250 MG ORAL TABLET 2 po qd x 1 day, then 1 po q d x 4 days AZITHROMYCIN 250 MG ORAL TABLET 509601 AZITHROMY SPARKLE Inactive FLAGYL 500 MG ORAL TABLET 1 tablet by mouth bid 04/13 FLAGYL 500 MG ORAL TABLET 131840 METRONIDAZOLE Inactive AZITHROMYCIN 250 MG ORAL TABLET 2 po qd x 1 day, then 1 po q d x 4 days AZITHROMYCIN 250 MG ORAL TABLET 246810 AZITHROMY SPARKLE Inactive AMOXICILLIN 500 MG ORAL CAPSULE 2 po BID x 10 days 201 01/15/27 AMOXICILLIN 500 MG ORAL CAPSULE 348229 AMOXICILLIN Inactive AMOXICILLIN 500 MG ORAL CAPSULE 2 po BID x 14 days for H. Pylori AMOXICILLIN 500 MG ORAL CAPSULE 678525 AMOXICILLIN Inactive CLARITHROMYCIN 500 MG ORAL TABLET 1 tab po BID x 14 days CLARITHROMYCIN 500 MG ORAL TABLET 086603 CLARITHROMYCIN Inacti ve FLAGYL 500 MG ORAL TABLET 1 tablet by mouth bid 08/29 FLAGYL 500 MG ORAL TABLET 224989 METRONIDAZOLE Inactive PROTONIX 40 MG ORAL TABLET DELAYED RELEASE 1 pill by m kayceeh daily, for acid reflux PROTONIX 40 MG ORAL TABLET DELAYED RELEAS E 612066 PANTOPRAZOLE SODIUM Inactive Immunizations Vaccine Administration Date [...] 11 .6-14.8 platelet count 215 10^3/MM^3 10*3/mm3 852-242 4450/11/28 erythrocyte (RBC) count 4.17 10^6/MM^3 10*6/mm3 3.80-5.8 0 lymphocytes as percent of blood leukocytes 23.9 % 20.5-51.1 monocytes as percent of blood leukocytes 7.3 % 1.7-9.3 neutrophils as percent of blood leukocytes 66.5 % 42.2-75.2 leukocyte count, blood 7.6 10^3/MM^3 10*3/mm3 4.6-10.2 Lab Report: Comp. Metabolic Panel, B-Typ e Natriuretic Peptide, Free Thyr ... - Chemistry sodium, serum 138 mmol/L 589-047 0936/06/27 carbon dioxide, venous blood 30.3 mmol/L 21.0-32 [...] Sed Rate, UADIP W/MICRO, ... - Chemistry protein, total urine random Negative mg/dL Negative RBC, urine, dipstick 1+ Negative sodium, serum 139 mmol/L 776-467 2172/11/28 carbon dioxide, venous blood 26.0 mmol/L 21.0-32 .0 potassium, serum 3.9 mmol/L 3.5-5.2 chloride, serum 104 mmol/L 98-107 blood glucose 76 mg/dL 65-110 urea nitrogen, blood 13 mg/dL 7-18 creatinine, serum 0.62 mg/dL 0.60-1.30 alanine aminotransferase (SGPT), serum 37 U/L 12-78 aspartate aminotransferase (SGOT), serum 25 U/L 15-37 calcium, serum 8.3 mg/dL 8.5-10.1 bilirubin, serum, total 0.60 mg/dL 0.00-1.00 Lab Report: Comp. Metabolic Panel, Eryth rocyte Sed Rate, UADIP W/MICRO, ... - Urinalysis urine color Yellow Colorless;Lightyellow;St raw;Yellow appearance, urine Slightly Cloudy Clear specific gravity, urine >=1.030 1.000-1.030 pH, urine, semiquantitative 6.0 5.0-8.5 urobilinogen, urine, semiquantitative (dipstick) 0.2 E .U./dL Normal leukocyte esterase, urine, by dipstick Negative Negative nitrite, urine, semiquantitative Negative Neg ative glucose, urine, semiquantitative Negative Neg ative ketones, urine, by test strip Negative Negati ve bilirubin, urine Negative Negative Lab Report: UADIP W/MICRO, AUTO - Chemis try RBC, urine, dipstick Trace-lysed Negative protein, total urine random Negative mg/dL Negative Lab Report: UADIP W/MICRO, AUTO - Urinal ysis urine color Yellow Colorless;Lightyellow;St raw;Yellow appearance, urine Clear Clear urobilinogen, urine, semiquantitative (dipstick) 0.2 E .U./dL Normal leukocyte esterase, urine, by dipstick Negative Negative nitrite, urine, semiquantitative Negative Neg ative specific gravity, urine 1.015 1.000-1.030 pH, urine, semiquantitative 6.5 5.0-8.5 glucose, urine, semiquantitative Negative Neg ative ketones, urine, by test strip Negative Negati ve bilirubin, urine Negative Negative Encounters Code Encounter Date Provider Facility CPT-20577 Level 3 Est. Patient 16:46:51 CDT Thomas reynolds DO [facility] CPT-81924 74803-Aet Vst-Est Level III 14:40:49 CDT Paul Hamlin MD [facility] CPT-79202 Level 4 Est. Patient 11:08:43 CDT Checo Conklin MD [facility]-17228 [id number] Vst-Est Level III 09:37:41 CDT Dangelo Rangel MD [facility] CPT-62674 Level 4 Est. Patient 08:57:51 SALON DESIGNER Checo Conklin MD [facility] CPT-47648 Level 3 Est. Patient 11:24:55 SALON DESIGNER Efren almendarez [facility] CPT-00740 Level 3 Est. Patient 13:05:44 CDT Paul Hamlin MD [facility] CPT-39022 Level 3 Est. Patient 11:29:55 CDT Checo Conklin MD [facility] CPT-66050 Level 4 Est. Patient 11:08:12 SALON DESIGNER Checo Conklin MD [facility] CPT-54851 Level 4 Est. Patient 16:06:48 SALON DESIGNER Checo Conklin MD [facility] CPT-23848 Level 3 Est. Patient 09:11:49 CDT Efren almendarez [facility] CPT-06817 Level 2 Est. Patient 19:53:27 CDT Tanner hill MD [facility] CPT-48115 Level 3 Est. Patient 09:15:34 CDT Efren almendarez [facility]-11087 Level 3 Est. Patient 11:28:51 SALON DESIGNER Efren almendarez APRN [facility] CPT-19141 Level 4 Est. Patient 13:55:46 SALON DESIGNER Checo Conklin MD [facility] CPT-53555 Level 4 Est. Patient 17:10:53 CDT Checo Conklin MD [facility] CPT-23818 Level 3 Est. Patient 15:56:22 CDT Checo Conklin MD [facility] CPT-14261 Level 3 Est. Patient 15:29:07 CDT Checo Conklin MD [facility] CPT-66256 Level 3 Est. Patient 14:38:41 CDT Checo Conklin MD [facility] CPT-06890 Level 3 Est. Patient 15:22:03 SALON DESIGNER Thomas reynolds DO [facility] CPT-05714 Level 3 Est. Patient 13:34:17 SALON DESIGNER Checo Conklin MD [facility] CPT-25477 Level 3 Est. Patient 12:29:32 CDT Dangelo arroyo MD [facility] CPT-06476 Level 3 Est. Patient 16:53:02 CDT Checo Conklin MD [facility] CPT-10399 Level 3 Est. Patient 16:37:13 CDT Checo Conklin MD [facility] CPT-69675 Level 3 Est. Patient 16:16:59 CDT Paul Hamlin MD [facility] CPT-71316 Level 3 Est. Patient 14:20:13 CDT Dangelo arroyo MD [facility] CPT-73058 Level 4 Est. Patient 11:29:33 CDT Checo Conklin MD [facility] CPT-64599 Level 3 Est. Patient 17:08:31 CDT Checo Conklin MD [facility] CPT-87759 Level 3 Est. Patient 16:50:42 [employer]ON DESIGNER Checo Conklin MD [facility] CPT-37710 Level 4 Est. Patient 09:26:08 SALON DESIGNER Checo Conklin MD [facility] CPT-65616 Level 3 Est. Patient 11:37:10 CDT Checo Conklin MD [facility] CPT-45132 Level 4 Est. Patient 14:07:38 CDT Checo Conklin MD [facility] CPT-28337 Level 3 Est. Patient 09:54:41 CDT Checo Conklin MD [facility] CPT-75503 Level 3 Est. Patient 11:10:54 CDT Paul Hamlin MD [facility] CPT-08024 Level 3 Est. 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 Patient 17:09:26 CDT Dangelo arroyo MD [facility] CPT-22477 Level 3 Est. Patient 16:54:37 CDT Checo Conklin MD [facility] Procedures Code Procedure Name Date Entry Date Standard Desc ription CPT-73685 Abx/Therapy Injection 09:52:15 CDT CPT-19479 Abx/Therapy Injection 18:17:48 CDT CPT-J2550 Phenergan 25 mg (Promethazine) 16:48:23 CDT CPT-J1885 Toradol 60 mg 16:48:23 CDT CPT-03381 Wrist, right, comp 3V - XRAY USE ONLY 09:24:31 CDT CPT-20530 Abd compl w upright - XRAY USE ONLY 1 1:36:54 [employer] DESIGNER CPT-20892 UA w micro - LAB USE ONLY 17:06:46 CDT 2015 CPT-11138 [facility] Qual - LAB USE ONLY 17:06:46 CDT 05/06 CPT-93009 CMP - LAB USE ONLY 17:06:46 CDT CPT-27622 CBC with Diff - LAB USE ONLY 17:06:45 CDT 2 CPT-11388 Venipuncture Draw Fee 17:06:45 CDT CPT-LR Lesion Removal 19:53:27 CDT CPT-OV Office Visit 11:31:28 CDT CPT-39344 Tubersol 09:39:29 CDT CPT-J2550 Phenergan 25 mg (Promethazine) 13:59:02 [employer] DESIGNER CPT-J1885 Toradol 60 mg (Ketorolac) 13:59:02 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
--- OUTSIDE RECORDS SUMMARY | 2019-09-29 01:21 | XMS REPORT | Clinical Summary ---
Author Author Admin, Bethany Ayala [facility] Address Unknown Phone Unavailable Allergies, Adverse [...] Tobacco use disorder Tobacco user 305.1 Active Cehco Conklin MD Tobacco use disorder Health screening [...] Checo Conklin MD Urinary frequency ICD-788.41 Inactive Cheoc Conklin MD Sinusitis, acute ICD-461.9 Inactive Checo [...] RELEASE 1 daily with furosemide POTASSIUM CHLORIDE 33288245873 Active Paul Hamlin MD Active FUROSEMIDE 20 MG ORAL TABLET 1 daily for swelling FUROSEMIDE 87425430844 Active Paul Hamlin MD Active HYDROCHLOROTHIAZIDE 12.5 MG ORAL CAPSULE 1 po qd PRN Edema 01/10 HYDROCHLOROTHIAZIDE 13477743732 No Longer Active Paul Hamlin MD Active IBUPROFEN 800 MG ORAL TABLET 1 tab every 8 hours as needed for p ain IBUPROFEN 52117694945 No Longer Active Paul Hamlin MD Active PAROXETINE HCL 40 MG ORAL TABLET 1 po qd PAR OXETINE HCL 55625474931 Active Checo Conklin MD Active MIRALAX ORAL POWDER 8.5 to 17g po qd PRN Constipation POLYETHYLENE GLYCOL 3350 52767392181 No Longer Active Checo Conklin MD Active PROTONIX 40 MG ORAL TABLET DELAYED RELEASE 1 pill by m outh daily, for acid reflux PANTOPRAZOLE SODIUM 46723672929 No Longer Activ e Corry Méndez LPN Active FLAGYL 500 MG ORAL TABLET 1 tablet by mouth bid 08/29 METRONIDAZOLE 20476900887 No Longer Active Corry Méndez LPN Active CLARITHROMYCIN 500 MG ORAL TABLET 1 tab po BID x 14 days CLARITHROMYCIN 39534178400 No Longer Active Corry Méndez LPN Active AMOXICILLIN 500 MG ORAL CAPSULE 2 po BID x 14 days for H. Pylori AMOXICILLIN 62598070640 No Longer Active Corry Méndez LPN Active FLUTICASONE PROPIONATE 50 MCG/ACT NASAL SUSPENSION 2 s prays/nostril qd PRN Congestion/Allergies FLUTICASONE PROPIONATE 9601048186 9 No Longer Active Checo Conklin MD Active AMOXICILLIN 500 MG ORAL CAPSULE 2 po BID x 10 days 201 01/15/27 AMOXICILLIN 17040743915 No Longer Active Checo Conklin MD Activ e CLARITIN 10 MG ORAL TABLET 1 tablet by mouth daily as needed for allergies LORATADINE 04920255930 No Longer Active Checo Ortiz MD Active BACTRIM DS 800-160 MG ORAL TABLET 1 tab by mouth twice daily 201 12/19/26 TRIMETHOPRIM-SULFAMETHOXAZOLE 16969978906 No Longer Active Ragini Carrillo MD Active DIFLUCAN 150 MG ORAL TABLET 1 tablet by mouth qod 2015 FLUCONAZOLE 06974467390 No Longer Active 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 DEXMETHYLPHENIDATE HCL 44107039927 Active Checo Conklin MD Active MAGNESIUM CITRATE 1.745 GM/30ML ORAL SOLUTION 150ml po BID P RN Constipation MAGNESIUM CITRATE 98633325301 No Longer Active Checo Conklin MD Active BACTROBAN 2 % EXTERNAL CREAM Apply to affected area BID for up to 10 days MUPIROCIN CALCIUM 37274792114 No Longer Active Checo Conklin MD Active HYDROCODONE-ACETAMINOPHEN 5-325 MG ORAL TABLET 1 tab b y mouth every 6 hours as needed HYDROCODONE-ACETAMINOPHEN 01541215939 No Longer Active Checo Conklin MD Active IBUPROFEN 800 MG ORAL TABLET 1 tab every 8 hours with food 03/20 IBUPROFEN 02324024417 No Longer Active Checo Conklin MD Active DIFLUCAN 150 MG ORAL TABLET 1 tablet by mouth if neede d, hold until symptoms start FLUCONAZOLE 65198751000 No Longer Active Checo Conklin MD Active BACTRIM DS 800-160 MG ORAL TABLET 1 tab by mouth twice daily 201 11/23/03 TRIMETHOPRIM-SULFAMETHOXAZOLE 40063804697 No Longer Active K bernice Méndez LPN Active HYDROCODONE-ACETAMINOPHEN 5-325 MG ORAL TABLET 0.5 to 1 tab by mouth every 6 hours as needed HYDROCODONE-ACETAMINOPHEN 13828267718 No Longer Active Checo Conklin MD Active ONDANSETRON 8 MG ORAL TABLET DISINTEGRATING place one tablet on tongue and allow to dissolve every 6 hours as needed for vomitting ONDANSETRON 57863398250 No Longer Active Checo Conklin MD Activ e COMPRO 25 MG RECTAL SUPPOSITORY insert or apply one garza ppository rectally as directed every 12 hours as needed for nausea PROCHLORPERAZINE 71744338783 No Longer Active Checo Conklin MD A ctive SUMATRIPTAN SUCCINATE 100 MG ORAL TABLET Take one PRN for migran e SUMATRIPTAN SUCCINATE 75700521939 No Longer Active Checo Conklin MD Active TRAVEL SICKNESS 25 MG ORAL TABLET CHEWABLE chew and sw allow one tablet every 6 hours as needed MECLIZINE HCL 38451006749 No Longer A ctive Checo Conklin MD Active BUPROPION HCL ER (SR) 100 MG ORAL TABLET EXTENDED RELE ASE 12 HOUR take one tablet by mouth one time daily for one week then take 1 two times daily BUPROPION HCL 53520443510 No Longer Active Checo gallagher MD Active TERBINAFINE HCL 250 MG ORAL TABLET take one table PO one time da moises TERBINAFINE HCL 55356997897 No Longer Active Checo Conklin MD Active METOCLOPRAMIDE HCL 10 MG ORAL TABLET take one PO tid PRN nausea METOCLOPRAMIDE HCL 31724287206 No Longer Active Checo Conklin MD Active DICLOFENAC SODIUM 75 MG ORAL TABLET DELAYED RELEASE 1 tablet by mouth twice daily PRN Knee pain DICLOFENAC SODIUM 30139300963 No Longer Active Checo Conklin MD Active LAMISIL 250 MG ORAL TABLET 1 po qd TERBINAFI NE HCL 04898056008 No Longer Active Checo Conklin MD Active REGLAN 10 MG ORAL TABLET 1 po TID PRN Nausea 3 METOCLOPRAMIDE HCL 40704655096 No Longer Active Checo Conklin MD Active CELEXA 20 MG ORAL TABLET 1 tablet by mouth daily 09/26 CITALOPRAM HYDROBROMIDE 79383403257 No Longer Active Checo Conklin MD Active AZITHROMYCIN 250 MG ORAL TABLET 2 po qd x 1 day, then 1 po q d x 4 days AZITHROMYCIN 73958131245 No Longer Active Checo Ortiz MD Active HYDROCODONE-ACETAMINOPHEN 5-325 MG ORAL TABLET 1 po q 6hr PRN Pa in HYDROCODONE-ACETAMINOPHEN 94086911984 No Longer Active Lenora Conklin MD Active PHENAZOPYRIDINE HCL 200 MG ORAL TABLET take 1 tab po TID for bladder pain PHENAZOPYRIDINE HCL 44089575302 No Longer Active Joe Conklin MD Active CIPRO 500 MG ORAL TABLET 1 tablet by mouth twice daily CIPROFLOXACIN HCL 79567255491 No Longer Active Dangelo Rangel MD Active HYDROCODONE-ACETAMINOPHEN 5-325 MG ORAL TABLET 1/2 to 1 po q 4 hours prn cough HYDROCODONE-ACETAMINOPHEN 08540050056 No Longer Activ candy Rangel MD Active BACTRIM DS 800-160 MG ORAL TABLET 1 po BID x 7 days 29/04/10 SULFAMETHOXAZOLE-TRIMETHOPRIM 27241439761 No Longer Active Checo Conklin MD Active PREDNISONE 20 MG ORAL TABLET 2 tabs daily for 3 days, 1 tab daily for 3 days, 1/2 tab daily for 2 days PREDNISONE 16898017511 No Longer Active Checo Conklin MD Active TRIAMCINOLONE ACETONIDE 0.1 % EXTERNAL OINTMENT Apply to affected areas TID for up to 2 weeks TRIAMCINOLONE ACETONIDE 25144274273 No Longer Active Cehco Conklin MD Active CEFDINIR 300 MG ORAL CAPSULE by mouth twice a day 2013 CEFDINIR 56745708452 No Longer Active Dangelo Rangel MD Acti ve BUPROPION HCL ER (SMOKING DET) 150 MG ORAL TABLET EXTE NDED RELEASE 12 HOUR 1 a day for 1 week then 1 twice a day BUPROPION HCL (SMOKING DETER) 92829224726 No Longer Active Checo Conklin MD Active SIMVASTATIN 20 MG ORAL TABLET 1 po qd SIMVASTAT IN 56486344467 Active Checo Conklin MD Active CHANTIX STARTING MONTH KARTHIK 0.5 MG X 11 & 1 MG X 42 ORA L TABLET 0.5mg daily for 3 days, then 0.5mg BID for 4 days, then 1mg BID VARENICLINE TARTRATE 11954301555 No Longer Active Checo Conklin MD Activ e XANAX 0.5 MG ORAL TABLET 1 po BID PRN anxiety A LPRAZOLAM 78621643288 Active Checo Conklin MD Active CONCERTA 18 MG ORAL TABLET EXTENDED RELEASE 1 po q a.m. METHYLPHENIDATE HCL 41550141116 No Longer Active Checo Conklin MD Active AMBIEN 5 MG ORAL TABLET 1 po qHS PRN Insomnia Z OLPIDEM TARTRATE 43821345578 Active Checo Conklin MD Active TRAZODONE HCL 100 MG ORAL TABLET 0.5 to 1 po qHS PRN Insomnia 20 30/07/08 TRAZODONE HCL 53645861094 No Longer Active Checo Conklin MD Active FIORICET 325-50-40 MG TAB 1 tablet by mouth four times daily as needed [id number] 58438730617 No Longer Active Checo Conklin MD Active PHENERGAN CREAM* 25mg applied to wrist q6hr PRN Nausea PHENERGAN CREAM* No Longer Active Checo Conklin MD A ctive FLONASE 50 MCG/ACT NASAL SUSPENSION 1 spray each nostril am and hs FLUTICASONE PROPIONATE 70751008052 No Longer Active Checo Conklin MD Active ANTIPYRINE-BENZOCAINE 5.4-1.4 % OTIC SOLUTION 1-2 drops in affec yohannes ear BENZOCAINE-ANTIPYRINE 97286155643 No Longer Active Checo Conklin MD Active CEFDINIR 300 MG ORAL CAPSULE 1 po bid CEFDINIR 98746607865 No Longer Active Checo Conklin MD Active PREDNISONE 20 MG ORAL TABLET 2 tabs daily for 3 days, 1 tab daily for 3 days, 1/2 tab daily for 2 days PREDNISONE 77432318428 No Longer Active Checo Conklin MD Active AZITHROMYCIN 250 MG ORAL TABLET 2 po qd x 1 day, then 1 po q d x 4 days AZITHROMYCIN 46537609727 No Longer Active Checo Ortiz MD Active PREDNISONE 20 MG ORAL TABLET 2 tabs daily for 3 days, 1 tab daily for 3 days, 1/2 tab daily for 2 days PREDNISONE 29495271217 No Longer Active Checo Conklin MD Active ZITHROMAX Z-KARTHIK 250 MG ORAL TABLET 2 today, then 1 daily for 4 d ays AZITHROMYCIN 84224852948 No Longer Active Paul Hamlin MD Active FOCALIN XR 10 MG ORAL CAPSULE EXTENDED RELEASE 24 HOUR 1 po q a. m. DEXMETHYLPHENIDATE HCL 06642821627 No Longer Active Paul Hamlin MD Active PERCOCET 10-325 MG ORAL TABLET 1 tablet every 6 hours as needed for pain OXYCODONE-ACETAMINOPHEN 45156159437 No Longer Active Paul Hamlin MD Active LORTAB 5-500 MG ORAL TABLET 1/2 to 1 tablet by mouth e very 4 hours as needed for pain HYDROCODONE-ACETAMINOPHEN 62838113093 No Longer Active Checo Conklin MD Active FOCALIN XR 15 MG ORAL CAPSULE EXTENDED RELEASE 24 HOUR 1 po q a. m. DEXMETHYLPHENIDATE HCL 62409295685 No Longer Active Checo Conklin MD Active ZOFRAN ODT 4 MG ORAL TABLET DISINTEGRATING 1 po q6hr PRN Nausea ONDANSETRON 18213719877 No Longer Active Checo Conklin MD Active PERCOCET 5-325 MG ORAL TABLET 1 tablet by mouth every 6 hour s as needed OXYCODONE-ACETAMINOPHEN 91081927488 No Longer Active Checo Conklin MD Active PYRIDIUM 200 MG ORAL TABLET take 1 tab po TID prn urinary pain. PHENAZOPYRIDINE HCL 29499998010 No Longer Active Checo Joshua Active FLUCONAZOLE 150 MG ORAL TABLET take 1 tab po qday once FLUCONAZOLE 75674698595 No Longer Active Dangelo Rangel MD Acti ve CIPRO 500 MG ORAL TABLET 1 tablet by mouth twice daily CIPROFLOXACIN HCL 33041047667 No Longer Active Dangelo Rangel MD Active PYRIDIUM 200 MG ORAL TABLET take 1 tab po TID prn urinary pain. PYRIDIUM 200 MG ORAL TABLET 5127688 PHENAZOPYRIDINE HCL Inactive PERCOCET 5-325 MG ORAL TABLET 1 tablet by mouth every 6 hour s as needed PERCOCET 5-325 MG ORAL TABLET 5465158 OXYCODONE-ACETAMINOPHEN Inactive ZOFRAN ODT 4 MG ORAL TABLET DISINTEGRATING 1 po q6hr PRN Nausea ZOFRAN ODT 4 MG ORAL TABLET DISINTEGRATING 453129 ONDAN SETRON Inactive FOCALIN XR 15 MG [...] for pain PERCOCET 10-325 MG ORAL TABLET 5266296 OXYCODONE-ACETAMI NOPHEN Inactive FOCALIN XR 10 MG ORAL CAPSULE EXTENDED RELEASE 24 HOUR 1 po q a. m. FOCALIN XR 10 MG ORAL CAPSULE EXTENDED RELEASE 24 HOUR DEXMETHYLPHENIDATE HCL Inactive CEFDINIR 300 MG ORAL CAPSULE 1 po bid CEFDINI R 300 MG ORAL CAPSULE 229193 CEFDINIR Inactive ANTIPYRINE-BENZOCAINE 5.4-1.4 % OTIC SOLUTION 1-2 drops in affec yohannes ear ANTIPYRINE-BENZOCAINE 5.4-1.4 % OTIC SOLUTION BENZOCAINE-ANTIPYRINE Inactive FLONASE 50 MCG/ACT NASAL SUSPENSION 1 spray each nostril am and hs FLONASE 50 MCG/ACT NASAL SUSPENSION 4509033 FLUTICASONE PROPIONATE I nactive PHENERGAN CREAM* 25mg applied to wrist q6hr PRN Nausea PHENERGAN CREAM* Inactive FIORICET 325-50-40 MG TAB 1 tablet by mouth four times daily as needed FIORICET 325-50-40 MG TAB ACETAMINOPHEN-C AFF-BUTALBITAL Inactive TRAZODONE HCL 100 MG ORAL TABLET 0.5 to 1 po qHS PRN Insomnia 20 30/07/08 TRAZODONE HCL 100 MG ORAL TABLET 877885 TRAZODONE HCL Inactive CONCERTA 18 MG ORAL [...] cough HYDROCODONE-ACETAMINOPHEN 5-325 MG ORAL TABLET 8 94176 HYDROCODONE-ACETAMINOPHEN Inactive PHENAZOPYRIDINE HCL 200 MG ORAL TABLET take 1 tab po TID for bladder pain PHENAZOPYRIDINE HCL 200 MG ORAL TABLET 2475341 PHENAZOPYRIDINE HCL Inactive HYDROCODONE-ACETAMINOPHEN 5-325 MG ORAL TABLET 1 po q 6hr PRN Pa in HYDROCODONE-ACETAMINOPHEN 5-325 MG ORAL TABLET 128469 HYDROCODONE-ACETAMINOPHEN Inactive CELEXA 20 MG ORAL TABLET 1 tablet by mouth daily 09/26 CELEXA 20 MG ORAL TABLET 225188 CITALOPRAM HYDROBROMIDE Inactive REGLAN 10 MG ORAL TABLET 1 po TID PRN Nausea 3 REGLAN 10 MG ORAL TABLET 071339 METOCLOPRAMIDE HCL Inactive LAMISIL 250 MG ORAL TABLET 1 po qd L AMISIL 250 MG ORAL TABLET 013078 TERBINAFINE HCL Inactive DICLOFENAC SODIUM 75 MG ORAL TABLET DELAYED RELEASE 1 tablet by mouth twice daily PRN Knee pain DICLOFENAC SODIUM 75 MG ORAL TABLET DELAYED RELEASE 668501 DICLOFENAC SODIUM Inactive METOCLOPRAMIDE HCL 10 MG ORAL TABLET take one PO tid PRN nausea METOCLOPRAMIDE HCL 10 MG ORAL TABLET 587298 METOCLOPRAM ZACH HCL Inactive TERBINAFINE HCL 250 MG ORAL TABLET take one table PO one time da moises TERBINAFINE HCL 250 MG ORAL TABLET 879669 TERBINAFINE H CL Inactive BUPROPION HCL ER [...] SICKNESS 25 M G ORAL TABLET CHEWABLE 274963 MECLIZINE HCL Inactive SUMATRIPTAN SUCCINATE 100 MG ORAL TABLET Take one PRN for migran e SUMATRIPTAN SUCCINATE 100 MG ORAL TABLET 880842 SUMATRIPTAN SUCCINATE Inactive COMPRO 25 MG RECTAL SUPPOSITORY insert or apply one garza ppository rectally as directed every 12 hours as needed for nausea COMPRO 25 MG RECTAL SUPPOSITORY 003434 PROCHLORPERAZINE Inactive ONDANSETRON 8 MG ORAL TABLET DISINTEGRATING place one tablet on tongue and allow to dissolve every 6 hours as needed for vomitting ONDANSETRON 8 MG ORAL TABLET DISINTEGRATING 650289 ONDANSETRON Inactive HYDROCODONE-ACETAMINOPHEN 5-325 MG ORAL TABLET 0.5 to 1 tab by mouth every 6 hours as needed HYDROCODONE-ACETAMIN OPHEN 5-325 MG ORAL TABLET 141394 HYDROCODONE-ACETAMINOPHEN Inactive BACTRIM DS 800-160 MG ORAL TABLET 1 tab by mouth twice daily 201 11/23/03 BACTRIM DS 800-160 MG ORAL TABLET 050345 TRIMETHOPRIM-SULFAMETHOXAZOLE Inactive DIFLUCAN 150 MG ORAL TABLET 1 tablet by mouth if neede d, hold until symptoms start DIFLUCAN 150 MG ORAL TABLET 311919 FLUCONAZ OLE Inactive IBUPROFEN 800 MG ORAL TABLET 1 tab every 8 hours with food 03/20 IBUPROFEN 800 MG ORAL TABLET 382707 IBUPROFEN Krupa ctive HYDROCODONE-ACETAMINOPHEN 5-325 MG ORAL TABLET 1 tab b y mouth every 6 hours as needed HYDROCODONE-ACETAMINOPHEN 5-325 MG ORAL TABLET 468549 HYDROCODONE-ACETAMINOPHEN Inactive BACTROBAN 2 % EXTERNAL CREAM Apply to affected area BID for up to 10 days BACTROBAN 2 % EXTERNAL CREAM 751616 MUPIROCIN CA LCIUM Inactive MAGNESIUM CITRATE 1.745 GM/30ML ORAL SOLUTION 150ml po BID P RN Constipation MAGNESIUM CITRATE 1.745 GM/30ML ORAL SOLUTION 10 78052 MAGNESIUM CITRATE Inactive DIFLUCAN 150 MG ORAL TABLET 1 tablet by mouth qod 2015 DIFLUCAN 150 MG ORAL TABLET 356997 FLUCONAZOLE Inactive BACTRIM DS 800-160 MG ORAL TABLET 1 tab by mouth twice daily 201 12/19/26 BACTRIM DS 800-160 MG ORAL TABLET 611657 TRIMETHOPRIM-SULFAMETHOXAZOLE Inactive CLARITIN 10 MG ORAL TABLET 1 tablet by mouth daily as needed for allergies CLARITIN 10 MG ORAL TABLET 305991 LORATADINE I nactive FLUTICASONE PROPIONATE 50 MCG/ACT NASAL SUSPENSION 2 s prays/nostril qd PRN Congestion/Allergies FLUTICASONE PROPION ATE 50 MCG/ACT NASAL SUSPENSION 1819224 FLUTICASONE PROPIONATE Inactive MIRALAX ORAL POWDER 8.5 to 17g po qd PRN Constipation MIRALAX ORAL POWDER 311129 POLYETHYLENE GLYCOL 3350 Inactive IBUPROFEN 800 MG ORAL TABLET 1 tab every 8 hours as needed for p ain IBUPROFEN 800 MG ORAL TABLET 692221 IBUPROFEN Krupa ctive HYDROCHLOROTHIAZIDE 12.5 MG ORAL CAPSULE 1 po qd PRN Edema 01/10 HYDROCHLOROTHIAZIDE 12.5 MG ORAL CAPSULE 264386 HYDROCH LOROTHIAZIDE Inactive CIPRO 500 MG ORAL TABLET 1 tablet by mouth twice daily CIPRO 500 MG ORAL TABLET 940883 CIPROFLOXACIN HCL Inactive FLUCONAZOLE 150 MG ORAL TABLET take 1 tab po qday once FLUCONAZOLE 150 MG ORAL TABLET 715728 FLUCONAZOLE Inactive ZITHROMAX Z-KARTHIK 250 MG ORAL TABLET 2 today, then 1 daily for 4 d ays ZITHROMAX Z-KARTHIK 250 MG ORAL TABLET 144572 AZITHROMYCIN Inactive PREDNISONE 20 MG ORAL TABLET 2 tabs daily for 3 days, 1 tab daily for 3 days, 1/2 tab daily for 2 days PREDNISONE 20 MG ORAL T ABLET 421501 PREDNISONE Inactive AZITHROMYCIN 250 MG ORAL TABLET 2 po qd x 1 day, then 1 po q d x 4 days AZITHROMYCIN 250 MG ORAL TABLET 272600 AZITHROMY SPARKLE Inactive PREDNISONE 20 MG ORAL TABLET 2 tabs daily for 3 days, 1 tab daily for 3 days, 1/2 tab daily for 2 days PREDNISONE 20 MG ORAL TABLET 368923 PREDNISONE Inactive CEFDINIR 300 MG ORAL CAPSULE by mouth twice a day 2013 CEFDINIR 300 MG ORAL CAPSULE 694492 CEFDINIR Inactive TRIAMCINOLONE ACETONIDE 0.1 % EXTERNAL OINTMENT Apply to affected areas TID for up to 2 weeks TRIAMCINOLONE ACETON ZACH 0.1 % EXTERNAL OINTMENT 3488252 TRIAMCINOLONE ACETONIDE Inactive PREDNISONE 20 MG ORAL TABLET 2 tabs daily for 3 days, 1 tab daily for 3 days, 1/2 tab daily for 2 days PREDNISONE 20 MG ORAL T ABLET 515267 PREDNISONE Inactive BACTRIM DS 800-160 MG ORAL TABLET 1 po BID x 7 days 29/04/10 BACTRIM DS 800-160 MG ORAL TABLET 058868 SULFAMETHOXAZOLE-TRIMETHOP RIM Inactive CIPRO 500 MG ORAL TABLET 1 tablet by mouth twice daily CIPRO 500 MG ORAL TABLET 733663 CIPROFLOXACIN HCL Inactive AZITHROMYCIN 250 MG ORAL TABLET 2 po qd x 1 day, then 1 po q d x 4 days AZITHROMYCIN 250 MG ORAL TABLET 872793 AZITHROMY SPARKLE Inactive FLAGYL 500 MG ORAL TABLET 1 tablet by mouth bid 04/13 FLAGYL 500 MG ORAL TABLET 499109 METRONIDAZOLE Inactive AZITHROMYCIN 250 MG ORAL TABLET 2 po qd x 1 day, then 1 po q d x 4 days AZITHROMYCIN 250 MG ORAL TABLET 516784 AZITHROMY SPARKLE Inactive AMOXICILLIN 500 MG ORAL CAPSULE 2 po BID x 10 days 201 01/15/27 AMOXICILLIN 500 MG ORAL CAPSULE 232122 AMOXICILLIN Inactive AMOXICILLIN 500 MG ORAL CAPSULE 2 po BID x 14 days for H. Pylori AMOXICILLIN 500 MG ORAL CAPSULE 281372 AMOXICILLIN Inactive CLARITHROMYCIN 500 MG ORAL TABLET 1 tab po BID x 14 days CLARITHROMYCIN 500 MG ORAL TABLET 339561 CLARITHROMYCIN Inacti ve FLAGYL 500 MG ORAL TABLET 1 tablet by mouth bid 08/29 FLAGYL 500 MG ORAL TABLET 853417 METRONIDAZOLE Inactive PROTONIX 40 MG ORAL TABLET DELAYED RELEASE 1 pill by m outh daily, for acid reflux PROTONIX 40 MG ORAL TABLET DELAYED RELEAS E 180078 PANTOPRAZOLE SODIUM Inactive Immunizations Vaccine Administration Date [...] ... - Chemistry sodium, serum 138 mmol/L 612-848 4895/06/27 carbon dioxide, venous blood 30.3 mmol/L 21.0-32 [...] ... - Chemistry sodium, serum 139 mmol/L 417-290 1198/11/28 carbon dioxide, venous blood 26.0 mmol/L 21.0-32 [...] 5.0-8.5 Encounters Code Encounter Date Provider Facility CPT-88227 Level 3 Est. Patient 16:46:51 CDT Thomas reynolds DO [facility] CPT-19153 [id number] Vst-Est Level III 14:40:49 CDT Paul Hamlin MD [facility] CPT-57252 Level 4 Est. Patient 11:08:43 CDT Checo Conklin MD [facility]-76566 [id number] Vst-Est Level III 09:37:41 CDT Dangelo Rangel MD [facility] CPT-62902 Level 4 Est. Patient 08:57:51 BIOMATHEMATICIAN Checo Conklin MD [facility] CPT-39260 Level 3 Est. Patient 11:24:55 BIOMATHEMATICIAN Efren almendarez [facility] CPT-56771 Level 3 Est. Patient 13:05:44 CDT Paul Hamlin MD [facility] CPT-88874 Level 3 Est. Patient 11:29:55 CDT Checo Conklin MD [facility] CPT-40189 Level 4 Est. Patient 11:08:12 BIOMATHEMATICIAN Checo Conklin MD [facility] CPT-36244 Level 4 Est. Patient 16:06:48 BIOMATHEMATICIAN Checo Conklin MD [facility] CPT-22611 Level 3 Est. Patient 09:11:49 CDT Efren almendarez [facility]-12256 Level 2 Est. Patient 19:53:27 CDT Tanner hill MD [facility] CPT-47460 Level 3 Est. Patient 09:15:34 CDT Efren almendarez [facility]-93143 Level 3 Est. Patient 11:28:51 BIOMATHEMATICIAN Efren almendarez APRN [facility] CPT-85922 Level 4 Est. Patient 13:55:46 BIOMATHEMATICIAN Checo Conklin MD [facility] CPT-15237 Level 4 Est. Patient 17:10:53 CDT Checo Conklin MD [facility] CPT-19853 Level 3 Est. Patient 15:56:22 CDT Checo Conklin MD [facility] CPT-39556 Level 3 Est. Patient 15:29:07 CDT Checo Conklin MD [facility] CPT-92418 Level 3 Est. Patient 14:38:41 CDT Checo Conklin MD [facility] CPT-84904 Level 3 Est. Patient 15:22:03 BIOMATHEMATICIAN Thomas reynolds DO [facility] CPT-30611 Level 3 Est. Patient 13:34:17 BIOMATHEMATICIAN Checo Conklin MD [facility] CPT-06822 Level 3 Est. Patient 12:29:32 CDT Dangelo arroyo MD [facility]-20576 Level 3 Est. Patient 16:53:02 CDT Checo Conklin MD [facility] CPT-29867 Level 3 Est. Patient 16:37:13 CDT Checo Conklin MD [facility] CPT-15228 Level 3 Est. Patient 16:16:59 CDT Paul Hamlin MD [facility] CPT-87484 Level 3 Est. Patient 14:20:13 CDT Dangelo arroyo MD [facility] CPT-09949 Level 4 Est. Patient 11:29:33 CDT Checo Conklin MD [facility] CPT-82456 Level 3 Est. Patient 17:08:31 CDT Checo Conklin MD [facility] CPT-26172 Level 3 Est. Patient 16:50:42 BIOMATHEMATICIAN Checo Conklin MD [facility] CPT-17395 Level 4 Est. Patient 09:26:08 BIOMATHEMATICIAN Checo Conklin MD [facility] CPT-39174 Level 3 Est. Patient 11:37:10 CDT Checo Conklin MD [facility] CPT-48447 Level 4 Est. Patient 14:07:38 CDT Checo Conklin MD [facility] CPT-49502 Level 3 Est. Patient 09:54:41 CDT Checo Conklin MD [facility] CPT-28972 Level 3 Est. Patient 11:10:54 CDT Paul Hamlin MD [facility] CPT-62293 Level 3 Est. Patient 14:16:56 BIOMATHEMATICIAN Checo Conklin MD [facility] CPT-42856 Level 3 Est. Patient 11:04:11 BIOMATHEMATICIAN Checo Conklin MD [facility] CPT-89778 Level 3 Est. Patient 17:09:26 CDT Dangelo arroyo MD [facility] CPT-68385 Level 3 Est. Patient 16:54:37 CDT Checo Conklin MD [facility] Procedures Code Procedure Name Date Entry Date Standard Desc ription CPT-89173 Abx/Therapy Injection 18:17:48 CDT CPT-J2550 Phenergan 25 mg (Promethazine) 16:48:23 CDT CPT-J1885 Toradol 60 mg 16:48:23 CDT CPT-75343 Wrist, right, comp 3V - XRAY USE ONLY 09:24:31 CDT CPT-03607 Abd compl w upright - XRAY USE ONLY 1 1:36:54 BIOMATHEMATICIAN CPT-69076 UA w micro - LAB USE ONLY 17:06:46 CDT 2015 CPT-38353 BHCG Qual - LAB USE ONLY 17:06:46 CDT 05/06 CPT-37072 CMP - LAB USE ONLY 17:06:46 CDT CPT-63335 CBC with Diff - LAB USE ONLY 17:06:45 CDT 2 CPT-79397 Venipuncture Draw Fee 17:06:45 CDT CPT-LR Lesion Removal 19:53:27 CDT CPT-OV Office Visit 11:31:28 CDT CPT-81329 Tubersol 09:39:29 CDT CPT-J2550 Phenergan 25 mg (Promethazine) 13:59:02 BIOMATHEMATICIAN CPT-J1885 Toradol 60 mg (Ketorolac) 13:59:02 BIOMATHEMATICIAN 2012
--- OUTSIDE RECORDS SUMMARY | 2019-09-29 01:21 | XMS REPORT | Clinical Summary ---
Author Author Admin, Bethany Ayala Octavian [facility] Address Unknown Phone Unavailable Allergies, Adverse [...] RELEASE 1 daily with furosemide POTASSIUM CHLORIDE [id number] Active Paul Hamlin MD Active FUROSEMIDE 20 MG ORAL TABLET 1 daily for swelling FUROSEMIDE 46242346731 Active Paul Hamlin MD Active HYDROCHLOROTHIAZIDE 12.5 MG ORAL CAPSULE 1 po qd PRN Edema 01/10 HYDROCHLOROTHIAZIDE 21055642490 No Longer Active Paul Hamlin MD Active IBUPROFEN 800 MG ORAL TABLET 1 tab every 8 hours as needed for p ain IBUPROFEN 28232424874 No Longer Active Paul Hamlin MD Active PAROXETINE HCL 40 MG ORAL TABLET 1 po qd PAR OXETINE HCL 66809215681 Active Checo Conklin MD Active MIRALAX ORAL POWDER 8.5 to 17g po qd PRN Constipation POLYETHYLENE GLYCOL 3350 15427631919 No Longer Active Checo Conklin MD Active PROTONIX 40 MG ORAL TABLET DELAYED RELEASE 1 pill by m outh daily, for acid reflux PANTOPRAZOLE SODIUM 31037492892 No Longer Activ e Corry Méndez LPN Active FLAGYL 500 MG ORAL TABLET 1 tablet by mouth bid 08/29 METRONIDAZOLE 49199861038 No Longer Active Corry Méndez LPN Active CLARITHROMYCIN 500 MG ORAL TABLET 1 tab po BID x 14 days CLARITHROMYCIN 95320601572 No Longer Active Corry Méndez LPN Active AMOXICILLIN 500 MG ORAL CAPSULE 2 po BID x 14 days for H. Pylori AMOXICILLIN 01364223427 No Longer Active Corry Méndez LPN Active FLUTICASONE PROPIONATE 50 MCG/ACT NASAL SUSPENSION 2 s prays/nostril qd PRN Congestion/Allergies FLUTICASONE PROPIONATE 6067648542 9 No Longer Active Checo Conklin MD Active AMOXICILLIN 500 MG ORAL CAPSULE 2 po BID x 10 days 201 01/15/27 AMOXICILLIN 66938012143 No Longer Active Checo Conklin MD Activ e CLARITIN 10 MG ORAL TABLET 1 tablet by mouth daily as needed for allergies LORATADINE 24402785947 No Longer Active Checo Ortiz MD Active BACTRIM DS 800-160 MG ORAL TABLET 1 tab by mouth twice daily 201 12/19/26 TRIMETHOPRIM-SULFAMETHOXAZOLE 91726081357 No Longer Active Ragini Carrillo MD Active DIFLUCAN 150 MG ORAL TABLET 1 tablet by mouth qod 2015 FLUCONAZOLE 62039577265 No Longer Active Efren Medel TELEPHONE MAINTENANCE MECHANIC Act mike AZITHROMYCIN 250 MG ORAL TABLET 2 po qd x 1 day, then 1 po q d x 4 days AZITHROMYCIN 30517243632 No Longer Active Efren flores TELEPHONE MAINTENANCE MECHANIC Active FLAGYL 500 MG ORAL TABLET 1 tablet by mouth bid 04/13 METRONIDAZOLE 26242065138 No Longer Active Checo Conklin MD Acti ve FOCALIN XR 10 MG ORAL CAPSULE EXTENDED RELEASE 24 HOUR 1 po q a.m. DEXMETHYLPHENIDATE HCL 72442777939 Active Checo Conklin MD Active MAGNESIUM CITRATE 1.745 GM/30ML ORAL SOLUTION 150ml po BID P RN Constipation MAGNESIUM CITRATE 90768847876 No Longer Active Checo Conklin MD Active BACTROBAN 2 % EXTERNAL CREAM Apply to affected area BID for up to 10 days MUPIROCIN CALCIUM 10355461328 No Longer Active Checo Conklin MD Active HYDROCODONE-ACETAMINOPHEN 5-325 MG ORAL TABLET 1 tab b y mouth every 6 hours as needed HYDROCODONE-ACETAMINOPHEN 41315362817 No Longer Active Checo Conklin MD Active IBUPROFEN 800 MG ORAL TABLET 1 tab every 8 hours with food 03/20 IBUPROFEN 21259983630 No Longer Active Checo Conklin MD Active DIFLUCAN 150 MG ORAL TABLET 1 tablet by mouth if neede d, hold until symptoms start FLUCONAZOLE 68507901149 No Longer Active Checo Conklin MD Active BACTRIM DS 800-160 MG ORAL TABLET 1 tab by mouth twice daily 201 11/23/03 TRIMETHOPRIM-SULFAMETHOXAZOLE 28540246159 No Longer Active K bernice Méndez LPN Active HYDROCODONE-ACETAMINOPHEN 5-325 MG ORAL TABLET 0.5 to 1 tab by mouth every 6 hours as needed HYDROCODONE-ACETAMINOPHEN 35271247995 No Longer Active Checo Conklin MD Active ONDANSETRON 8 MG ORAL TABLET DISINTEGRATING place one tablet on tongue and allow to dissolve every 6 hours as needed for vomitting ONDANSETRON 29399506908 No Longer Active Cehco Conklin MD Activ e COMPRO 25 MG RECTAL SUPPOSITORY insert or apply one garza ppository rectally as directed every 12 hours as needed for nausea PROCHLORPERAZINE 89810558143 No Longer Active Checo Conklin MD A ctive SUMATRIPTAN SUCCINATE 100 MG ORAL TABLET Take one PRN for migran e SUMATRIPTAN SUCCINATE 47029854332 No Longer Active Checo Conklin MD Active TRAVEL SICKNESS 25 MG ORAL TABLET CHEWABLE chew and sw allow one tablet every 6 hours as needed MECLIZINE HCL 93653903254 No Longer A ctive Checo Conklin MD Active BUPROPION HCL ER (SR) 100 MG ORAL TABLET EXTENDED RELE ASE 12 HOUR take one tablet by mouth one time daily for one week then take 1 two times daily BUPROPION HCL 13784965926 No Longer Active Checo gallagher MD Active TERBINAFINE HCL 250 MG ORAL TABLET take one table PO one time da moises TERBINAFINE HCL 82980488523 No Longer Active Checo Conklin MD Active METOCLOPRAMIDE HCL 10 MG ORAL TABLET take one PO tid PRN nausea METOCLOPRAMIDE HCL 35275823398 No Longer Active Checo Conklin MD Active DICLOFENAC SODIUM 75 MG ORAL TABLET DELAYED RELEASE 1 tablet by mouth twice daily PRN Knee pain DICLOFENAC SODIUM 74238988830 No Longer Active Checo Conklin MD Active LAMISIL 250 MG ORAL TABLET 1 po qd TERBINAFI NE HCL 13257262762 No Longer Active Checo Conklin MD Active REGLAN 10 MG ORAL TABLET 1 po TID PRN Nausea 3 METOCLOPRAMIDE HCL 41231930728 No Longer Active Checo Conklin MD Active CELEXA 20 MG ORAL TABLET 1 tablet by mouth daily 09/26 CITALOPRAM HYDROBROMIDE 59114801477 No Longer Active Checo Conklin MD Active AZITHROMYCIN 250 MG ORAL TABLET 2 po qd x 1 day, then 1 po q d x 4 days AZITHROMYCIN 27737729698 No Longer Active Checo Ortiz MD Active HYDROCODONE-ACETAMINOPHEN 5-325 MG ORAL TABLET 1 po q 6hr PRN Pa in HYDROCODONE-ACETAMINOPHEN 75322110755 No Longer Active Lenora Conklin MD Active PHENAZOPYRIDINE HCL 200 MG ORAL TABLET take 1 tab po TID for bladder pain PHENAZOPYRIDINE HCL 42825198713 No Longer Active Joe Conklin MD Active CIPRO 500 MG ORAL TABLET 1 tablet by mouth twice daily CIPROFLOXACIN HCL 73658112087 No Longer Active Dangelo Rangel MD Active HYDROCODONE-ACETAMINOPHEN 5-325 MG ORAL TABLET 1/2 to 1 po q 4 hours prn cough HYDROCODONE-ACETAMINOPHEN 52720444840 No Longer Activ candy Rangel MD Active BACTRIM DS 800-160 MG ORAL TABLET 1 po BID x 7 days 29/04/10 SULFAMETHOXAZOLE-TRIMETHOPRIM 00150666119 No Longer Active Checo Conklin MD Active PREDNISONE 20 MG ORAL TABLET 2 tabs daily for 3 days, 1 tab daily for 3 days, 1/2 tab daily for 2 days PREDNISONE 49857599644 No Longer Active Checo Conklin MD Active TRIAMCINOLONE ACETONIDE 0.1 % EXTERNAL OINTMENT Apply to affected areas TID for up to 2 weeks TRIAMCINOLONE ACETONIDE 21843564845 No Longer Active Checo Conklin MD Active CEFDINIR 300 MG ORAL CAPSULE by mouth twice a day 2013 CEFDINIR 86849816296 No Longer Active Dangelo Rangel MD Acti ve BUPROPION HCL ER (SMOKING DET) 150 MG ORAL TABLET EXTE NDED RELEASE 12 HOUR 1 a day for 1 week then 1 twice a day BUPROPION HCL (SMOKING DETER) 01185350917 No Longer Active Checo Conklin MD Active SIMVASTATIN 20 MG ORAL TABLET 1 po qd SIMVASTAT IN 36578549183 Active Checo Conklin MD Active CHANTIX STARTING MONTH KARTHIK 0.5 MG X 11 & 1 MG X 42 ORA L TABLET 0.5mg daily for 3 days, then 0.5mg BID for 4 days, then 1mg BID VARENICLINE TARTRATE 84236217603 No Longer Active Checo Conklin MD Activ e XANAX 0.5 MG ORAL TABLET 1 po BID PRN anxiety A LPRAZOLAM 25347931137 Active Checo Conklin MD Active CONCERTA 18 MG ORAL TABLET EXTENDED RELEASE 1 po q a.m. METHYLPHENIDATE HCL 62456406473 No Longer Active Checo Conklin MD Active AMBIEN 5 MG ORAL TABLET 1 po qHS PRN Insomnia Z OLPIDEM TARTRATE 44879880530 Active Checo Conklin MD Active TRAZODONE HCL 100 MG ORAL TABLET 0.5 to 1 po qHS PRN Insomnia 20 30/07/08 TRAZODONE HCL 52838680354 No Longer Active Checo Conklin MD Active FIORICET 325-50-40 MG TAB 1 tablet by mouth four times daily as needed PGCZUDZIAHMGA-HIPM-AXODJZLGUM 78857730237 No Longer Active Checo Conklin MD Active PHENERGAN CREAM* 25mg applied to wrist q6hr PRN Nausea PHENERGAN CREAM* No Longer Active Checo Conklin MD A ctive FLONASE 50 MCG/ACT NASAL SUSPENSION 1 spray each nostril am and hs FLUTICASONE PROPIONATE 78563147974 No Longer Active Checo Conklin MD Active ANTIPYRINE-BENZOCAINE 5.4-1.4 % OTIC SOLUTION 1-2 drops in affec yohannes ear BENZOCAINE-ANTIPYRINE 44599069540 No Longer Active Checo Conklin MD Active CEFDINIR 300 MG ORAL CAPSULE 1 po bid CEFDINIR 61058199227 No Longer Active Checo Conklin MD Active PREDNISONE 20 MG ORAL TABLET 2 tabs daily for 3 days, 1 tab daily for 3 days, 1/2 tab daily for 2 days PREDNISONE 17095139852 No Longer Active Checo Conklin MD Active AZITHROMYCIN 250 MG ORAL TABLET 2 po qd x 1 day, then 1 po q d x 4 days AZITHROMYCIN 15705651796 No Longer Active Checo Ortiz MD Active PREDNISONE 20 MG ORAL TABLET 2 tabs daily for 3 days, 1 tab daily for 3 days, 1/2 tab daily for 2 days PREDNISONE 36195812499 No Longer Active Checo Conklin MD Active ZITHROMAX Z-KARTHIK 250 MG ORAL TABLET 2 today, then 1 daily for 4 d ays AZITHROMYCIN 03406577543 No Longer Active Paul Hamlin MD Active FOCALIN XR 10 MG ORAL CAPSULE EXTENDED RELEASE 24 HOUR 1 po q a. m. DEXMETHYLPHENIDATE HCL 45514219223 No Longer Active Paul Hamlin MD Active PERCOCET 10-325 MG ORAL TABLET 1 tablet every 6 hours as needed for pain OXYCODONE-ACETAMINOPHEN 43881545576 No Longer Active Paul Hamlin MD Active LORTAB 5-500 MG ORAL TABLET 1/2 to 1 tablet by mouth e very 4 hours as needed for pain HYDROCODONE-ACETAMINOPHEN 68119141656 No Longer Active Checo Conklin MD Active FOCALIN XR 15 MG ORAL CAPSULE EXTENDED RELEASE 24 HOUR 1 po q a. m. DEXMETHYLPHENIDATE HCL 90256163261 No Longer Active Checo Conklin MD Active ZOFRAN ODT 4 MG ORAL TABLET DISINTEGRATING 1 po q6hr PRN Nausea ONDANSETRON 60317395507 No Longer Active Checo Conklin MD Active PERCOCET 5-325 MG ORAL TABLET 1 tablet by mouth every 6 hour s as needed OXYCODONE-ACETAMINOPHEN 58821293055 No Longer Active Checo Conklin MD Active PYRIDIUM 200 MG ORAL TABLET take 1 tab po TID prn urinary pain. PHENAZOPYRIDINE HCL 65328053016 No Longer Active Checo Joshua Active FLUCONAZOLE 150 MG ORAL TABLET take 1 tab po qday once FLUCONAZOLE 19738533979 No Longer Active Dangelo Rangel MD Acti ve CIPRO 500 MG ORAL TABLET 1 tablet by mouth twice daily CIPROFLOXACIN HCL 88169843004 No Longer Active Dangelo Rangel MD Active PYRIDIUM 200 MG ORAL TABLET take 1 tab po TID prn urinary pain. PYRIDIUM 200 MG ORAL TABLET 5133214 PHENAZOPYRIDINE HCL Inactive PERCOCET 5-325 MG ORAL TABLET 1 tablet by mouth every 6 hour s as needed PERCOCET 5-325 MG ORAL TABLET 8869030 OXYCODONE-ACETAMINOPHEN Inactive ZOFRAN ODT 4 MG ORAL TABLET DISINTEGRATING 1 po q6hr PRN Nausea ZOFRAN ODT 4 MG ORAL TABLET DISINTEGRATING 007416 ONDAN SETRON Inactive FOCALIN XR 15 MG [...] for pain PERCOCET 10-325 MG ORAL TABLET 4577657 OXYCODONE-ACETAMI NOPHEN Inactive FOCALIN XR 10 MG ORAL CAPSULE EXTENDED RELEASE 24 HOUR 1 po q a. m. FOCALIN XR 10 MG ORAL CAPSULE EXTENDED RELEASE 24 HOUR DEXMETHYLPHENIDATE HCL Inactive CEFDINIR 300 MG ORAL CAPSULE 1 po bid CEFDINI R 300 MG ORAL CAPSULE 613249 CEFDINIR Inactive ANTIPYRINE-BENZOCAINE 5.4-1.4 % OTIC SOLUTION 1-2 drops in affec yohannes ear ANTIPYRINE-BENZOCAINE 5.4-1.4 % OTIC SOLUTION BENZOCAINE-ANTIPYRINE Inactive FLONASE 50 MCG/ACT NASAL SUSPENSION 1 spray each nostril am and hs FLONASE 50 MCG/ACT NASAL SUSPENSION 5680895 FLUTICASONE PROPIONATE I nactive PHENERGAN CREAM* 25mg applied to wrist q6hr PRN Nausea PHENERGAN CREAM* Inactive FIORICET 325-50-40 MG TAB 1 tablet by mouth four times daily as needed FIORICET 325-50-40 MG TAB ACETAMINOPHEN-C AFF-BUTALBITAL Inactive TRAZODONE HCL 100 MG ORAL TABLET 0.5 to 1 po qHS PRN Insomnia 20 30/07/08 TRAZODONE HCL 100 MG ORAL TABLET 805241 TRAZODONE HCL Inactive CONCERTA 18 MG ORAL [...] cough HYDROCODONE-ACETAMINOPHEN 5-325 MG ORAL TABLET 8 12066 HYDROCODONE-ACETAMINOPHEN Inactive PHENAZOPYRIDINE HCL 200 MG ORAL TABLET take 1 tab po TID for bladder pain PHENAZOPYRIDINE HCL 200 MG ORAL TABLET 7569797 PHENAZOPYRIDINE HCL Inactive HYDROCODONE-ACETAMINOPHEN 5-325 MG ORAL TABLET 1 po q 6hr PRN Pa in HYDROCODONE-ACETAMINOPHEN 5-325 MG ORAL TABLET 687807 HYDROCODONE-ACETAMINOPHEN Inactive CELEXA 20 MG ORAL TABLET 1 tablet by mouth daily 09/26 CELEXA 20 MG ORAL TABLET 794426 CITALOPRAM HYDROBROMIDE Inactive REGLAN 10 MG ORAL TABLET 1 po TID PRN Nausea 3 REGLAN 10 MG ORAL TABLET 265081 METOCLOPRAMIDE HCL Inactive LAMISIL 250 MG ORAL TABLET 1 po qd L AMISIL 250 MG ORAL TABLET 790761 TERBINAFINE HCL Inactive DICLOFENAC SODIUM 75 MG ORAL TABLET DELAYED RELEASE 1 tablet by mouth twice daily PRN Knee pain DICLOFENAC SODIUM 75 MG ORAL TABLET DELAYED RELEASE 655509 DICLOFENAC SODIUM Inactive METOCLOPRAMIDE HCL 10 MG ORAL TABLET take one PO tid PRN nausea METOCLOPRAMIDE HCL 10 MG ORAL TABLET 594364 METOCLOPRAM ZACH HCL Inactive TERBINAFINE HCL 250 MG ORAL TABLET take one table PO one time da moises TERBINAFINE HCL 250 MG ORAL TABLET 435289 TERBINAFINE H CL Inactive BUPROPION HCL ER [...] SICKNESS 25 M G ORAL TABLET CHEWABLE 046455 MECLIZINE HCL Inactive SUMATRIPTAN SUCCINATE 100 MG ORAL TABLET Take one PRN for migran e SUMATRIPTAN SUCCINATE 100 MG ORAL TABLET 482735 SUMATRIPTAN SUCCINATE Inactive COMPRO 25 MG RECTAL SUPPOSITORY insert or apply one garza ppository rectally as directed every 12 hours as needed for nausea COMPRO 25 MG RECTAL SUPPOSITORY 780633 PROCHLORPERAZINE Inactive ONDANSETRON 8 MG ORAL TABLET DISINTEGRATING place one tablet on tongue and allow to dissolve every 6 hours as needed for vomitting ONDANSETRON 8 MG ORAL TABLET DISINTEGRATING 696071 ONDANSETRON Inactive HYDROCODONE-ACETAMINOPHEN 5-325 MG ORAL TABLET 0.5 to 1 tab by mouth every 6 hours as needed HYDROCODONE-ACETAMIN OPHEN 5-325 MG ORAL TABLET 206148 HYDROCODONE-ACETAMINOPHEN Inactive BACTRIM DS 800-160 MG ORAL TABLET 1 tab by mouth twice daily 201 11/23/03 BACTRIM DS 800-160 MG ORAL TABLET 589333 TRIMETHOPRIM-SULFAMETHOXAZOLE Inactive DIFLUCAN 150 MG ORAL TABLET 1 tablet by mouth if neede d, hold until symptoms start DIFLUCAN 150 MG ORAL TABLET 005414 FLUCONAZ OLE Inactive IBUPROFEN 800 MG ORAL TABLET 1 tab every 8 hours with food 03/20 IBUPROFEN 800 MG ORAL TABLET 686538 IBUPROFEN Krupa ctive HYDROCODONE-ACETAMINOPHEN 5-325 MG ORAL TABLET 1 tab b y mouth every 6 hours as needed HYDROCODONE-ACETAMINOPHEN 5-325 MG ORAL TABLET 838873 HYDROCODONE-ACETAMINOPHEN Inactive BACTROBAN 2 % EXTERNAL CREAM Apply to affected area BID for up to 10 days BACTROBAN 2 % EXTERNAL CREAM 886754 MUPIROCIN CA LCIUM Inactive MAGNESIUM CITRATE 1.745 GM/30ML ORAL SOLUTION 150ml po BID P RN Constipation MAGNESIUM CITRATE 1.745 GM/30ML ORAL SOLUTION 10 72926 MAGNESIUM CITRATE Inactive DIFLUCAN 150 MG ORAL TABLET 1 tablet by mouth qod 2015 DIFLUCAN 150 MG ORAL TABLET 984498 FLUCONAZOLE Inactive BACTRIM DS 800-160 MG ORAL TABLET 1 tab by mouth twice daily 201 12/19/26 BACTRIM DS 800-160 MG ORAL TABLET 346809 TRIMETHOPRIM-SULFAMETHOXAZOLE Inactive CLARITIN 10 MG ORAL TABLET 1 tablet by mouth daily as needed for allergies CLARITIN 10 MG ORAL TABLET 944854 LORATADINE I nactive FLUTICASONE PROPIONATE 50 MCG/ACT NASAL SUSPENSION 2 s prays/nostril qd PRN Congestion/Allergies FLUTICASONE PROPION ATE 50 MCG/ACT NASAL SUSPENSION 1890064 FLUTICASONE PROPIONATE Inactive MIRALAX ORAL POWDER 8.5 to 17g po qd PRN Constipation MIRALAX ORAL POWDER 766978 POLYETHYLENE GLYCOL 3350 Inactive IBUPROFEN 800 MG ORAL TABLET 1 tab every 8 hours as needed for p ain IBUPROFEN 800 MG ORAL TABLET 488336 IBUPROFEN Krupa ctive HYDROCHLOROTHIAZIDE 12.5 MG ORAL CAPSULE 1 po qd PRN Edema 01/10 HYDROCHLOROTHIAZIDE 12.5 MG ORAL CAPSULE 057912 HYDROCH LOROTHIAZIDE Inactive CIPRO 500 MG ORAL TABLET 1 tablet by mouth twice daily CIPRO 500 MG ORAL TABLET 790121 CIPROFLOXACIN HCL Inactive FLUCONAZOLE 150 MG ORAL TABLET take 1 tab po qday once FLUCONAZOLE 150 MG ORAL TABLET 863041 FLUCONAZOLE Inactive ZITHROMAX Z-KARTHIK 250 MG ORAL TABLET 2 today, then 1 daily for 4 d ays ZITHROMAX Z-KARTHIK 250 MG ORAL TABLET 527687 AZITHROMYCIN Inactive PREDNISONE 20 MG ORAL TABLET 2 tabs daily for 3 days, 1 tab daily for 3 days, 1/2 tab daily for 2 days PREDNISONE 20 MG ORAL T ABLET 573459 PREDNISONE Inactive AZITHROMYCIN 250 MG ORAL TABLET 2 po qd x 1 day, then 1 po q d x 4 days AZITHROMYCIN 250 MG ORAL TABLET 271156 AZITHROMY SPARKLE Inactive PREDNISONE 20 MG ORAL TABLET 2 tabs daily for 3 days, 1 tab daily for 3 days, 1/2 tab daily for 2 days PREDNISONE 20 MG ORAL TABLET 374627 PREDNISONE Inactive CEFDINIR 300 MG ORAL CAPSULE by mouth twice a day 2013 CEFDINIR 300 MG ORAL CAPSULE 182938 CEFDINIR Inactive TRIAMCINOLONE ACETONIDE 0.1 % EXTERNAL OINTMENT Apply to affected areas TID for up to 2 weeks TRIAMCINOLONE ACETON ZACH 0.1 % EXTERNAL OINTMENT 2539033 TRIAMCINOLONE ACETONIDE Inactive PREDNISONE 20 MG ORAL TABLET 2 tabs daily for 3 days, 1 tab daily for 3 days, 1/2 tab daily for 2 days PREDNISONE 20 MG ORAL T ABLET 660237 PREDNISONE Inactive BACTRIM DS 800-160 MG ORAL TABLET 1 po BID x 7 days 29/04/10 BACTRIM DS 800-160 MG ORAL TABLET 796165 SULFAMETHOXAZOLE-TRIMETHOP RIM Inactive CIPRO 500 MG ORAL TABLET 1 tablet by mouth twice daily CIPRO 500 MG ORAL TABLET 437469 CIPROFLOXACIN HCL Inactive AZITHROMYCIN 250 MG ORAL TABLET 2 po qd x 1 day, then 1 po q d x 4 days AZITHROMYCIN 250 MG ORAL TABLET 152823 AZITHROMY SPARKLE Inactive FLAGYL 500 MG ORAL TABLET 1 tablet by mouth bid 04/13 FLAGYL 500 MG ORAL TABLET 961988 METRONIDAZOLE Inactive AZITHROMYCIN 250 MG ORAL TABLET 2 po qd x 1 day, then 1 po q d x 4 days AZITHROMYCIN 250 MG ORAL TABLET 224476 AZITHROMY SPARKLE Inactive AMOXICILLIN 500 MG ORAL CAPSULE 2 po BID x 10 days 201 01/15/27 AMOXICILLIN 500 MG ORAL CAPSULE 881664 AMOXICILLIN Inactive AMOXICILLIN 500 MG ORAL CAPSULE 2 po BID x 14 days for H. Pylori AMOXICILLIN 500 MG ORAL CAPSULE 534495 AMOXICILLIN Inactive CLARITHROMYCIN 500 MG ORAL TABLET 1 tab po BID x 14 days CLARITHROMYCIN 500 MG ORAL TABLET 091506 CLARITHROMYCIN Inacti ve FLAGYL 500 MG ORAL TABLET 1 tablet by mouth bid 08/29 FLAGYL 500 MG ORAL TABLET 639198 METRONIDAZOLE Inactive PROTONIX 40 MG ORAL TABLET DELAYED RELEASE 1 pill by m outh daily, for acid reflux PROTONIX 40 MG ORAL TABLET DELAYED RELEAS E 115602 PANTOPRAZOLE SODIUM Inactive Immunizations Vaccine Administration Date [...] ... - Chemistry sodium, serum 138 mmol/L 483-810 4115/06/27 carbon dioxide, venous blood 30.3 mmol/L 21.0-32 [...] ... - Chemistry sodium, serum 139 mmol/L 487-052 5611/11/28 carbon dioxide, venous blood 26.0 mmol/L 21.0-32 [...] 5.0-8.5 Encounters Code Encounter Date Provider Facility CPT-93046 Level 3 Est. Patient 16:46:51 CDT Thomas reynolds DO [facility] CPT-18445 [id number] Vst-Est Level III 14:40:49 CDT Paul Hamlin MD [facility] CPT-81332 Level 4 Est. Patient 11:08:43 CDT Checo Conklin MD [facility]-97566 [id number] Vst-Est Level III 09:37:41 CDT Dangelo Rangel MD [facility] CPT-74749 Level 4 Est. Patient 08:57:51 FREIGHT ELEVATOR OPERATOR Checo Conklin MD [facility] CPT-72105 Level 3 Est. Patient 11:24:55 FREIGHT ELEVATOR OPERATOR Efren almendarez [facility] CPT-62896 Level 3 Est. Patient 13:05:44 CDT Paul Hamlin MD [facility] CPT-75035 Level 3 Est. Patient 11:29:55 CDT Checo Conklin MD [facility] CPT-48491 Level 4 Est. Patient 11:08:12 FREIGHT ELEVATOR OPERATOR Checo Conklin MD [facility] CPT-62617 Level 4 Est. Patient 16:06:48 FREIGHT ELEVATOR OPERATOR Checo Conklin MD [facility] CPT-61728 Level 3 Est. Patient 09:11:49 CDT Efren almendarez [facility]-63787 Level 2 Est. Patient 19:53:27 CDT Tanner hill MD [facility] CPT-62961 Level 3 Est. Patient 09:15:34 CDT Efren almendarez [facility]-36744 Level 3 Est. Patient 11:28:51 FREIGHT ELEVATOR OPERATOR Efren almendarez APRN [facility] CPT-55874 Level 4 Est. Patient 13:55:46 FREIGHT ELEVATOR OPERATOR Checo Conklin MD [facility] CPT-09475 Level 4 Est. Patient 17:10:53 CDT Checo Conklin MD [facility] CPT-99803 Level 3 Est. Patient 15:56:22 CDT Checo Conklin MD [facility] CPT-62508 Level 3 Est. Patient 15:29:07 CDT Checo Conklin MD [facility] CPT-72022 Level 3 Est. Patient 14:38:41 CDT Checo Conklin MD [facility] CPT-99061 Level 3 Est. Patient 15:22:03 FREIGHT ELEVATOR OPERATOR Thomas reynolds DO [facility] CPT-78572 Level 3 Est. Patient 13:34:17 FREIGHT ELEVATOR OPERATOR Checo Conklin MD [facility] CPT-03865 Level 3 Est. Patient 12:29:32 CDT Dangelo arroyo MD [facility]-59115 Level 3 Est. Patient 16:53:02 CDT Checo Conklin MD [facility] CPT-35554 Level 3 Est. Patient 16:37:13 CDT Checo Conklin MD [facility] CPT-06519 Level 3 Est. Patient 16:16:59 CDT Paul Hamlin MD [facility] CPT-02064 Level 3 Est. Patient 14:20:13 CDT Dangelo arroyo MD [facility] CPT-18244 Level 4 Est. Patient 11:29:33 CDT Checo Conklin MD [facility] CPT-67340 Level 3 Est. Patient 17:08:31 CDT Checo Conklin MD [facility] CPT-28655 Level 3 Est. Patient 16:50:42 FREIGHT ELEVATOR OPERATOR Checo Conklin MD [facility] CPT-94581 Level 4 Est. Patient 09:26:08 FREIGHT ELEVATOR OPERATOR Checo Conklin MD [facility] CPT-09095 Level 3 Est. Patient 11:37:10 CDT Checo Conklin MD [facility] CPT-12920 Level 4 Est. Patient 14:07:38 CDT Checo Conklin MD [facility] CPT-28601 Level 3 Est. Patient 09:54:41 CDT Checo Conklin MD [facility] CPT-79795 Level 3 Est. Patient 11:10:54 CDT Paul Hamlin MD [facility] CPT-55184 Level 3 Est. Patient 14:16:56 FREIGHT ELEVATOR OPERATOR Checo Conklin MD [facility] CPT-62535 Level 3 Est. Patient 11:04:11 FREIGHT ELEVATOR OPERATOR Checo Conklin MD [facility] CPT-21751 Level 3 Est. Patient 17:09:26 CDT Dangelo arroyo MD [facility] CPT-36469 Level 3 Est. Patient 16:54:37 CDT Checo Conklin MD [facility] Procedures Code Procedure Name Date Entry Date Standard Desc ription CPT-91842 Abx/Therapy Injection 18:17:48 CDT CPT-J2550 Phenergan 25 mg (Promethazine) 16:48:23 CDT CPT-J1885 Toradol 60 mg 16:48:23 CDT CPT-83697 Wrist, right, comp 3V - XRAY USE ONLY 09:24:31 CDT CPT-10624 Abd compl w upright - XRAY USE ONLY 1 1:36:54 FREIGHT ELEVATOR OPERATOR CPT-35065 UA w micro - LAB USE ONLY 17:06:46 CDT 2015 CPT-47400 BHCG Qual - LAB USE ONLY 17:06:46 CDT 05/06 CPT-57358 CMP - LAB USE ONLY 17:06:46 CDT CPT-54345 CBC with Diff - LAB USE ONLY 17:06:45 CDT 2 CPT-42468 Venipuncture Draw Fee 17:06:45 CDT CPT-LR Lesion Removal 19:53:27 CDT CPT-OV Office Visit 11:31:28 CDT CPT-20288 Tubersol 09:39:29 CDT CPT-J2550 Phenergan 25 mg (Promethazine) 13:59:02 FREIGHT ELEVATOR OPERATOR CPT-J1885 Toradol 60 mg (Ketorolac) 13:59:02 FREIGHT ELEVATOR OPERATOR 2012
--- OUTSIDE RECORDS SUMMARY | 2019-09-29 01:22 | XMS REPORT | Clinical Summary ---
Author Author Admin, Bethany Ayala [employer] [facility] Address Unknown Phone Unavailable Allergies, [...] RELEASE 1 daily with furosemide POTASSIUM CHLORIDE 08053233783 Active Paul Hamlin MD Active FUROSEMIDE 20 MG ORAL TABLET 1 daily for swelling FUROSEMIDE 71811227153 Active Paul Hamlin MD Active HYDROCHLOROTHIAZIDE 12.5 MG ORAL CAPSULE 1 po qd PRN Edema 01/10 HYDROCHLOROTHIAZIDE 65226347364 No Longer Active Paul Hamlin MD Active IBUPROFEN 800 MG ORAL TABLET 1 tab every 8 hours as needed for p ain IBUPROFEN 23708865562 No Longer Active Paul Hamlin MD Active PAROXETINE HCL 40 MG ORAL TABLET 1 po qd PAR OXETINE HCL 92094973039 Active Checo Conklin MD Active MIRALAX ORAL POWDER 8.5 to 17g po qd PRN Constipation POLYETHYLENE GLYCOL 3350 36149638864 No Longer Active Checo Conklin MD Active PROTONIX 40 MG ORAL TABLET DELAYED RELEASE 1 pill by m outh daily, for acid reflux PANTOPRAZOLE SODIUM 76202050808 No Longer Activ e Corry Méndez LPN Active FLAGYL 500 MG ORAL TABLET 1 tablet by mouth bid 08/29 METRONIDAZOLE 80992369438 No Longer Active Corry Méndez LPN Active CLARITHROMYCIN 500 MG ORAL TABLET 1 tab po BID x 14 days CLARITHROMYCIN 21897630541 No Longer Active Corry Méndez LPN Active AMOXICILLIN 500 MG ORAL CAPSULE 2 po BID x 14 days for H. Pylori AMOXICILLIN 04332127586 No Longer Active Corry Méndez LPN Active FLUTICASONE PROPIONATE 50 MCG/ACT NASAL SUSPENSION 2 s prays/nostril qd PRN Congestion/Allergies FLUTICASONE PROPIONATE 9252590944 9 No Longer Active Checo Conklin MD Active AMOXICILLIN 500 MG ORAL CAPSULE 2 po BID x 10 days 201 01/15/27 AMOXICILLIN 93607425081 No Longer Active Checo Conklin MD Activ e CLARITIN 10 MG ORAL TABLET 1 tablet by mouth daily as needed for allergies LORATADINE 32131011202 No Longer Active Checo Ortiz MD Active BACTRIM DS 800-160 MG ORAL TABLET 1 tab by mouth twice daily 201 12/19/26 TRIMETHOPRIM-SULFAMETHOXAZOLE 25099322287 No Longer Active Ragini Carrillo MD Active DIFLUCAN 150 MG ORAL TABLET 1 tablet by mouth qod 2015 FLUCONAZOLE 28864069928 No Longer Active Efren Medel [facility] NURSE Act mike AZITHROMYCIN 250 MG ORAL TABLET 2 po qd x 1 day, then 1 po q d x 4 days AZITHROMYCIN 77391241369 No Longer Active Efren flores [facility] NURSE Active FLAGYL 500 MG ORAL TABLET 1 tablet by mouth bid 04/13 METRONIDAZOLE 00279925118 No Longer Active Checo Conklin MD Acti ve FOCALIN XR 10 MG ORAL CAPSULE EXTENDED RELEASE 24 HOUR 1 po q a.m. DEXMETHYLPHENIDATE HCL 86697330203 Active Checo Conklin MD Active MAGNESIUM CITRATE 1.745 GM/30ML ORAL SOLUTION 150ml po BID P RN Constipation MAGNESIUM CITRATE 55221843841 No Longer Active Checo Conklin MD Active BACTROBAN 2 % EXTERNAL CREAM Apply to affected area BID for up to 10 days MUPIROCIN CALCIUM 99094856402 No Longer Active Checo Conklin MD Active HYDROCODONE-ACETAMINOPHEN 5-325 MG ORAL TABLET 1 tab b y mouth every 6 hours as needed HYDROCODONE-ACETAMINOPHEN 12323297052 No Longer Active Checo Conklin MD Active IBUPROFEN 800 MG ORAL TABLET 1 tab every 8 hours with food 03/20 IBUPROFEN 35003318884 No Longer Active Checo Conklin MD Active DIFLUCAN 150 MG ORAL TABLET 1 tablet by mouth if neede d, hold until symptoms start FLUCONAZOLE 61521189552 No Longer Active Checo Conklin MD Active BACTRIM DS 800-160 MG ORAL TABLET 1 tab by mouth twice daily 201 11/23/03 TRIMETHOPRIM-SULFAMETHOXAZOLE 36448580610 No Longer Active K bernice Méndez LPN Active HYDROCODONE-ACETAMINOPHEN 5-325 MG ORAL TABLET 0.5 to 1 tab by mouth every 6 hours as needed HYDROCODONE-ACETAMINOPHEN 43283959800 No Longer Active Cehco Conklin MD Active ONDANSETRON 8 MG ORAL TABLET DISINTEGRATING place one tablet on tongue and allow to dissolve every 6 hours as needed for vomitting ONDANSETRON 01834647616 No Longer Active Checo Conklin MD Activ e COMPRO 25 MG RECTAL SUPPOSITORY insert or apply one garza ppository rectally as directed every 12 hours as needed for nausea PROCHLORPERAZINE 45148950323 No Longer Active Checo Conklin MD A ctive SUMATRIPTAN SUCCINATE 100 MG ORAL TABLET Take one PRN for migran e SUMATRIPTAN SUCCINATE 04818783562 No Longer Active Checo Conklin MD Active TRAVEL SICKNESS 25 MG ORAL TABLET CHEWABLE chew and sw allow one tablet every 6 hours as needed MECLIZINE HCL 09110700498 No Longer A ctive Checo Conklin MD Active BUPROPION HCL ER (SR) 100 MG ORAL TABLET EXTENDED RELE ASE 12 HOUR take one tablet by mouth one time daily for one week then take 1 two times daily BUPROPION HCL 27741712792 No Longer Active Checo gallagher MD Active TERBINAFINE HCL 250 MG ORAL TABLET take one table PO one time da moises TERBINAFINE HCL 54358125648 No Longer Active Checo Conklin MD Active METOCLOPRAMIDE HCL 10 MG ORAL TABLET take one PO tid PRN nausea METOCLOPRAMIDE HCL 99818866731 No Longer Active Checo Conklin MD Active DICLOFENAC SODIUM 75 MG ORAL TABLET DELAYED RELEASE 1 tablet by mouth twice daily PRN Knee pain DICLOFENAC SODIUM 18383352309 No Longer Active Checo Conklin MD Active LAMISIL 250 MG ORAL TABLET 1 po qd TERBINAFI NE HCL 98244704277 No Longer Active Checo Conklin MD Active REGLAN 10 MG ORAL TABLET 1 po TID PRN Nausea 3 METOCLOPRAMIDE HCL 81142226619 No Longer Active Checo Conklin MD Active CELEXA 20 MG ORAL TABLET 1 tablet by mouth daily 09/26 CITALOPRAM HYDROBROMIDE 97312458805 No Longer Active Checo Conklin MD Active AZITHROMYCIN 250 MG ORAL TABLET 2 po qd x 1 day, then 1 po q d x 4 days AZITHROMYCIN 77129390301 No Longer Active Checo Ortiz MD Active HYDROCODONE-ACETAMINOPHEN 5-325 MG ORAL TABLET 1 po q 6hr PRN Pa in HYDROCODONE-ACETAMINOPHEN 87290741981 No Longer Active Lenora Conklin MD Active PHENAZOPYRIDINE HCL 200 MG ORAL TABLET take 1 tab po TID for bladder pain PHENAZOPYRIDINE HCL 77755906746 No Longer Active Joe Conklin MD Active CIPRO 500 MG ORAL TABLET 1 tablet by mouth twice daily CIPROFLOXACIN HCL 92437222645 No Longer Active Dangelo Rangel MD Active HYDROCODONE-ACETAMINOPHEN 5-325 MG ORAL TABLET 1/2 to 1 po q 4 hours prn cough HYDROCODONE-ACETAMINOPHEN 34099306909 No Longer Activ candy Rangel MD Active BACTRIM DS 800-160 MG ORAL TABLET 1 po BID x 7 days 29/04/10 SULFAMETHOXAZOLE-TRIMETHOPRIM 16728963962 No Longer Active Checo Conklin MD Active PREDNISONE 20 MG ORAL TABLET 2 tabs daily for 3 days, 1 tab daily for 3 days, 1/2 tab daily for 2 days PREDNISONE 35752919338 No Longer Active Checo Conklin MD Active TRIAMCINOLONE ACETONIDE 0.1 % EXTERNAL OINTMENT Apply to affected areas TID for up to 2 weeks TRIAMCINOLONE ACETONIDE 30032937058 No Longer Active Checo Conklin MD Active CEFDINIR 300 MG ORAL CAPSULE by mouth twice a day 2013 CEFDINIR 80523766109 No Longer Active Dangelo Rangel MD Acti ve BUPROPION HCL ER (SMOKING DET) 150 MG ORAL TABLET EXTE NDED RELEASE 12 HOUR 1 a day for 1 week then 1 twice a day BUPROPION HCL (SMOKING DETER) 96143646247 No Longer Active Checo Conklin MD Active SIMVASTATIN 20 MG ORAL TABLET 1 po qd SIMVASTAT IN 97917002820 Active Checo Conklin MD Active CHANTIX STARTING MONTH KARTHIK 0.5 MG X 11 & 1 MG X 42 ORA L TABLET 0.5mg daily for 3 days, then 0.5mg BID for 4 days, then 1mg BID VARENICLINE TARTRATE 04337782880 No Longer Active Checo Conklin MD Activ e XANAX 0.5 MG ORAL TABLET 1 po BID PRN anxiety A LPRAZOLAM 17001472141 Active Thomas Marks DO Active CONCERTA 18 MG ORAL TABLET EXTENDED RELEASE 1 po q a.m. METHYLPHENIDATE HCL 38656573681 No Longer Active Checo Conklin MD Active AMBIEN 5 MG ORAL TABLET 1 po qHS PRN Insomnia Z OLPIDEM TARTRATE 45002583857 Active Checo Conklin MD Active TRAZODONE HCL 100 MG ORAL TABLET 0.5 to 1 po qHS PRN Insomnia 20 30/07/08 TRAZODONE HCL 50445395099 No Longer Active Checo Conklin MD Active FIORICET 325-50-40 MG TAB 1 tablet by mouth four times daily as needed [id number] 40756774162 No Longer Active Checo Conklin MD Active PHENERGAN CREAM* 25mg applied to wrist q6hr PRN Nausea PHENERGAN CREAM* No Longer Active Checo Conklin MD A ctive FLONASE 50 MCG/ACT NASAL SUSPENSION 1 spray each nostril am and hs FLUTICASONE PROPIONATE 56329915908 No Longer Active Checo Conklin MD Active ANTIPYRINE-BENZOCAINE 5.4-1.4 % OTIC SOLUTION 1-2 drops in affec yohannes ear BENZOCAINE-ANTIPYRINE 82838779765 No Longer Active Checo Conklin MD Active CEFDINIR 300 MG ORAL CAPSULE 1 po bid CEFDINIR 24075823323 No Longer Active Checo Conklin MD Active PREDNISONE 20 MG ORAL TABLET 2 tabs daily for 3 days, 1 tab daily for 3 days, 1/2 tab daily for 2 days PREDNISONE 52118437352 No Longer Active Checo Conklin MD Active AZITHROMYCIN 250 MG ORAL TABLET 2 po qd x 1 day, then 1 po q d x 4 days AZITHROMYCIN 88591970727 No Longer Active Checo Ortiz MD Active PREDNISONE 20 MG ORAL TABLET 2 tabs daily for 3 days, 1 tab daily for 3 days, 1/2 tab daily for 2 days PREDNISONE 90918003563 No Longer Active Checo Conklin MD Active ZITHROMAX Z-KARTHIK 250 MG ORAL TABLET 2 today, then 1 daily for 4 d ays AZITHROMYCIN 48327945965 No Longer Active Paul Hamlin MD Active FOCALIN XR 10 MG ORAL CAPSULE EXTENDED RELEASE 24 HOUR 1 po q a. m. DEXMETHYLPHENIDATE HCL 33482980667 No Longer Active Paul Hamlin MD Active PERCOCET 10-325 MG ORAL TABLET 1 tablet every 6 hours as needed for pain OXYCODONE-ACETAMINOPHEN 78105465590 No Longer Active Paul Hamlin MD Active LORTAB 5-500 MG ORAL TABLET 1/2 to 1 tablet by mouth e very 4 hours as needed for pain HYDROCODONE-ACETAMINOPHEN 97918250782 No Longer Active Checo Conklin MD Active FOCALIN XR 15 MG ORAL CAPSULE EXTENDED RELEASE 24 HOUR 1 po q a. m. DEXMETHYLPHENIDATE HCL 14281401598 No Longer Active Checo Conklin MD Active ZOFRAN ODT 4 MG ORAL TABLET DISINTEGRATING 1 po q6hr PRN Nausea ONDANSETRON 13281952661 No Longer Active Checo Conklin MD Active PERCOCET 5-325 MG ORAL TABLET 1 tablet by mouth every 6 hour s as needed OXYCODONE-ACETAMINOPHEN 95345094133 No Longer Active Checo Conklin MD Active PYRIDIUM 200 MG ORAL TABLET take 1 tab po TID prn urinary pain. PHENAZOPYRIDINE HCL 64082011349 No Longer Active Checo Joshua Active FLUCONAZOLE 150 MG ORAL TABLET take 1 tab po qday once FLUCONAZOLE 28740533279 No Longer Active Dangelo Rangel MD Acti ve CIPRO 500 MG ORAL TABLET 1 tablet by mouth twice daily CIPROFLOXACIN HCL 39346736096 No Longer Active Dangelo Rangel MD Active PYRIDIUM 200 MG ORAL TABLET take 1 tab po TID prn urinary pain. PYRIDIUM 200 MG ORAL TABLET 2321308 PHENAZOPYRIDINE HCL Inactive PERCOCET 5-325 MG ORAL TABLET 1 tablet by mouth every 6 hour s as needed PERCOCET 5-325 MG ORAL TABLET 0770865 OXYCODONE-ACETAMINOPHEN Inactive ZOFRAN ODT 4 MG ORAL TABLET DISINTEGRATING 1 po q6hr PRN Nausea ZOFRAN ODT 4 MG ORAL TABLET DISINTEGRATING 177394 ONDAN SETRON Inactive FOCALIN XR 15 MG [...] for pain PERCOCET 10-325 MG ORAL TABLET 0734333 OXYCODONE-ACETAMI NOPHEN Inactive FOCALIN XR 10 MG ORAL CAPSULE EXTENDED RELEASE 24 HOUR 1 po q a. m. FOCALIN XR 10 MG ORAL CAPSULE EXTENDED RELEASE 24 HOUR DEXMETHYLPHENIDATE HCL Inactive CEFDINIR 300 MG ORAL CAPSULE 1 po bid CEFDINI R 300 MG ORAL CAPSULE 869557 CEFDINIR Inactive ANTIPYRINE-BENZOCAINE 5.4-1.4 % OTIC SOLUTION 1-2 drops in affec yohannes ear ANTIPYRINE-BENZOCAINE 5.4-1.4 % OTIC SOLUTION BENZOCAINE-ANTIPYRINE Inactive FLONASE 50 MCG/ACT NASAL SUSPENSION 1 spray each nostril am and hs FLONASE 50 MCG/ACT NASAL SUSPENSION 3380355 FLUTICASONE PROPIONATE I nactive PHENERGAN CREAM* 25mg applied to wrist q6hr PRN Nausea PHENERGAN CREAM* Inactive FIORICET 325-50-40 MG TAB 1 tablet by mouth four times daily as needed FIORICET 325-50-40 MG TAB ACETAMINOPHEN-C AFF-BUTALBITAL Inactive TRAZODONE HCL 100 MG ORAL TABLET 0.5 to 1 po qHS PRN Insomnia 20 30/07/08 TRAZODONE HCL 100 MG ORAL TABLET 535598 TRAZODONE HCL Inactive CONCERTA 18 MG ORAL [...] cough HYDROCODONE-ACETAMINOPHEN 5-325 MG ORAL TABLET 8 30612 HYDROCODONE-ACETAMINOPHEN Inactive PHENAZOPYRIDINE HCL 200 MG ORAL TABLET take 1 tab po TID for bladder pain PHENAZOPYRIDINE HCL 200 MG ORAL TABLET 4397674 PHENAZOPYRIDINE HCL Inactive HYDROCODONE-ACETAMINOPHEN 5-325 MG ORAL TABLET 1 po q 6hr PRN Pa in HYDROCODONE-ACETAMINOPHEN 5-325 MG ORAL TABLET 858644 HYDROCODONE-ACETAMINOPHEN Inactive CELEXA 20 MG ORAL TABLET 1 tablet by mouth daily 09/26 CELEXA 20 MG ORAL TABLET 362640 CITALOPRAM HYDROBROMIDE Inactive REGLAN 10 MG ORAL TABLET 1 po TID PRN Nausea 3 REGLAN 10 MG ORAL TABLET 448346 METOCLOPRAMIDE HCL Inactive LAMISIL 250 MG ORAL TABLET 1 po qd L AMISIL 250 MG ORAL TABLET 279962 TERBINAFINE HCL Inactive DICLOFENAC SODIUM 75 MG ORAL TABLET DELAYED RELEASE 1 tablet by mouth twice daily PRN Knee pain DICLOFENAC SODIUM 75 MG ORAL TABLET DELAYED RELEASE 751576 DICLOFENAC SODIUM Inactive METOCLOPRAMIDE HCL 10 MG ORAL TABLET take one PO tid PRN nausea METOCLOPRAMIDE HCL 10 MG ORAL TABLET 427573 METOCLOPRAM ZACH HCL Inactive TERBINAFINE HCL 250 MG ORAL TABLET take one table PO one time da moises TERBINAFINE HCL 250 MG ORAL TABLET 997578 TERBINAFINE H CL Inactive BUPROPION HCL ER [...] SICKNESS 25 M G ORAL TABLET CHEWABLE 516301 MECLIZINE HCL Inactive SUMATRIPTAN SUCCINATE 100 MG ORAL TABLET Take one PRN for migran e SUMATRIPTAN SUCCINATE 100 MG ORAL TABLET 331208 SUMATRIPTAN SUCCINATE Inactive COMPRO 25 MG RECTAL SUPPOSITORY insert or apply one garza ppository rectally as directed every 12 hours as needed for nausea COMPRO 25 MG RECTAL SUPPOSITORY 425238 PROCHLORPERAZINE Inactive ONDANSETRON 8 MG ORAL TABLET DISINTEGRATING place one tablet on tongue and allow to dissolve every 6 hours as needed for vomitting ONDANSETRON 8 MG ORAL TABLET DISINTEGRATING 796237 ONDANSETRON Inactive HYDROCODONE-ACETAMINOPHEN 5-325 MG ORAL TABLET 0.5 to 1 tab by mouth every 6 hours as needed HYDROCODONE-ACETAMIN OPHEN 5-325 MG ORAL TABLET 888977 HYDROCODONE-ACETAMINOPHEN Inactive BACTRIM DS 800-160 MG ORAL TABLET 1 tab by mouth twice daily 201 11/23/03 BACTRIM DS 800-160 MG ORAL TABLET 291162 TRIMETHOPRIM-SULFAMETHOXAZOLE Inactive DIFLUCAN 150 MG ORAL TABLET 1 tablet by mouth if neede d, hold until symptoms start DIFLUCAN 150 MG ORAL TABLET 863986 FLUCONAZ OLE Inactive IBUPROFEN 800 MG ORAL TABLET 1 tab every 8 hours with food 03/20 IBUPROFEN 800 MG ORAL TABLET 309831 IBUPROFEN [place] ctive HYDROCODONE-ACETAMINOPHEN 5-325 MG ORAL TABLET 1 tab b y mouth every 6 hours as needed HYDROCODONE-ACETAMINOPHEN 5-325 MG ORAL TABLET 819551 HYDROCODONE-ACETAMINOPHEN Inactive BACTROBAN 2 % EXTERNAL CREAM Apply to affected area BID for up to 10 days BACTROBAN 2 % EXTERNAL CREAM 920737 MUPIROCIN CA LCIUM Inactive MAGNESIUM CITRATE 1.745 GM/30ML ORAL SOLUTION 150ml po BID P RN Constipation MAGNESIUM CITRATE 1.745 GM/30ML ORAL SOLUTION 10 30370 MAGNESIUM CITRATE Inactive DIFLUCAN 150 MG ORAL TABLET 1 tablet by mouth qod 2015 DIFLUCAN 150 MG ORAL TABLET 627512 FLUCONAZOLE Inactive BACTRIM DS 800-160 MG ORAL TABLET 1 tab by mouth twice daily 201 12/19/26 BACTRIM DS 800-160 MG ORAL TABLET 471435 TRIMETHOPRIM-SULFAMETHOXAZOLE Inactive CLARITIN 10 MG ORAL TABLET 1 tablet by mouth daily as needed for allergies CLARITIN 10 MG ORAL TABLET 629608 LORATADINE I nactive FLUTICASONE PROPIONATE 50 MCG/ACT NASAL SUSPENSION 2 s prays/nostril qd PRN Congestion/Allergies FLUTICASONE PROPION ATE 50 MCG/ACT NASAL SUSPENSION 5990008 FLUTICASONE PROPIONATE Inactive MIRALAX ORAL POWDER 8.5 to 17g po qd PRN Constipation MIRALAX ORAL POWDER 447266 POLYETHYLENE GLYCOL 3350 Inactive IBUPROFEN 800 MG ORAL TABLET 1 tab every 8 hours as needed for p ain IBUPROFEN 800 MG ORAL TABLET 558048 IBUPROFEN [place] ctive HYDROCHLOROTHIAZIDE 12.5 MG ORAL CAPSULE 1 po qd PRN Edema 01/10 HYDROCHLOROTHIAZIDE 12.5 MG ORAL CAPSULE 409351 HYDROCH LOROTHIAZIDE Inactive CIPRO 500 MG ORAL TABLET 1 tablet by mouth twice daily CIPRO 500 MG ORAL TABLET 577732 CIPROFLOXACIN HCL Inactive FLUCONAZOLE 150 MG ORAL TABLET take 1 tab po qday once FLUCONAZOLE 150 MG ORAL TABLET 812641 FLUCONAZOLE Inactive ZITHROMAX Z-KARTHIK 250 MG ORAL TABLET 2 today, then 1 daily for 4 d ays ZITHROMAX Z-KARTHIK 250 MG ORAL TABLET 514030 AZITHROMYCIN Inactive PREDNISONE 20 MG ORAL TABLET 2 tabs daily for 3 days, 1 tab daily for 3 days, 1/2 tab daily for 2 days PREDNISONE 20 MG ORAL T ABLET 010033 PREDNISONE Inactive AZITHROMYCIN 250 MG ORAL TABLET 2 po qd x 1 day, then 1 po q d x 4 days AZITHROMYCIN 250 MG ORAL TABLET 991953 AZITHROMY SPARKLE Inactive PREDNISONE 20 MG ORAL TABLET 2 tabs daily for 3 days, 1 tab daily for 3 days, 1/2 tab daily for 2 days PREDNISONE 20 MG ORAL TABLET 191071 PREDNISONE Inactive CEFDINIR 300 MG ORAL CAPSULE by mouth twice a day 2013 CEFDINIR 300 MG ORAL CAPSULE 133264 CEFDINIR Inactive TRIAMCINOLONE ACETONIDE 0.1 % EXTERNAL OINTMENT Apply to affected areas TID for up to 2 weeks TRIAMCINOLONE ACETON ZACH 0.1 % EXTERNAL OINTMENT 8957660 TRIAMCINOLONE ACETONIDE Inactive PREDNISONE 20 MG ORAL TABLET 2 tabs daily for 3 days, 1 tab daily for 3 days, 1/2 tab daily for 2 days PREDNISONE 20 MG ORAL T ABLET 113157 PREDNISONE Inactive BACTRIM DS 800-160 MG ORAL TABLET 1 po BID x 7 days 29/04/10 BACTRIM DS 800-160 MG ORAL TABLET 201473 SULFAMETHOXAZOLE-TRIMETHOP RIM Inactive CIPRO 500 MG ORAL TABLET 1 tablet by mouth twice daily CIPRO 500 MG ORAL TABLET 019407 CIPROFLOXACIN HCL Inactive AZITHROMYCIN 250 MG ORAL TABLET 2 po qd x 1 day, then 1 po q d x 4 days AZITHROMYCIN 250 MG ORAL TABLET 038134 AZITHROMY SPARKLE Inactive FLAGYL 500 MG ORAL TABLET 1 tablet by mouth bid 04/13 FLAGYL 500 MG ORAL TABLET 874152 METRONIDAZOLE Inactive AZITHROMYCIN 250 MG ORAL TABLET 2 po qd x 1 day, then 1 po q d x 4 days AZITHROMYCIN 250 MG ORAL TABLET 866278 AZITHROMY SPARKLE Inactive AMOXICILLIN 500 MG ORAL CAPSULE 2 po BID x 10 days 201 01/15/27 AMOXICILLIN 500 MG ORAL CAPSULE 368529 AMOXICILLIN Inactive AMOXICILLIN 500 MG ORAL CAPSULE 2 po BID x 14 days for H. Pylori AMOXICILLIN 500 MG ORAL CAPSULE 036150 AMOXICILLIN Inactive CLARITHROMYCIN 500 MG ORAL TABLET 1 tab po BID x 14 days CLARITHROMYCIN 500 MG ORAL TABLET 925149 CLARITHROMYCIN Inacti ve FLAGYL 500 MG ORAL TABLET 1 tablet by mouth bid 08/29 FLAGYL 500 MG ORAL TABLET 223768 METRONIDAZOLE Inactive PROTONIX 40 MG ORAL TABLET DELAYED RELEASE 1 pill by m outh daily, for acid reflux PROTONIX 40 MG ORAL TABLET DELAYED RELEAS E 052278 PANTOPRAZOLE SODIUM Inactive Immunizations Vaccine Administration Date [...] 11 .6-14.8 platelet count 215 10^3/MM^3 10*3/mm3 983-447 8064/11/28 erythrocyte (RBC) count 4.17 10^6/MM^3 10*6/mm3 3.80-5.8 [...] 0.60-1.30 alanine aminotransferase (SGPT), serum 28 U/L - aspartate aminotransferase (SGOT), serum 20 U/L 15-37 calcium, serum 9.3 mg/dL 8.5-10.1 bilirubin, serum, total 0.60 mg/dL 0.00-1.00 thyroxine, serum, free 0.70 ng/dL 0.59-1.17 TSH 2.81 m[iU]/mL 0.36-3.74 sodium, serum 138 mmol/L 986-821 5392/06/27 carbon dioxide, venous blood 30.3 mmol/L 21.0-32 .0 potassium, serum 4.4 mmol/L 3.5-5.2 chloride, serum 102 mmol/L 98-107 blood glucose 95 mg/dL 65-95 Lab Report: Comp. Metabolic Panel, Eryth rocyte Sed Rate, UADIP W/MICRO, ... - Chemistry sodium, serum 139 mmol/L 655-799 2408/11/28 creatinine, serum 0.62 mg/dL 0.60-1.30 alanine aminotransferase (SGPT), serum 37 U/L -78 aspartate aminotransferase (SGOT), serum 25 U/L 15-37 calcium, serum 8.3 mg/dL 8.5-10.1 bilirubin, serum, total 0.60 mg/dL 0.00-1.00 protein, total urine random Negative mg/dL Negative RBC, urine, dipstick 1+ Negative carbon dioxide, venous blood 26.0 mmol/L 21.0-32 .0 potassium, serum 3.9 mmol/L 3.5-5.2 chloride, serum 104 mmol/L 98-107 blood glucose 76 mg/dL 65-110 urea nitrogen, blood 13 mg/dL 7-18 Lab Report: Comp. Metabolic Panel, Eryth rocyte [...] Negative Encounters Code Encounter Date Provider Facility CPT-34865 Level 3 Est. Patient 16:46:51 CDT Thomas reynolds DO [facility] CPT-94421 [id number] Vst-Est Level III 14:40:49 CDT Paul Hamlin MD [facility] CPT-72222 Level 4 Est. Patient 11:08:43 CDT Checo Conklin MD [facility]-45574 [id number] Vst-Est Level III 09:37:41 CDT Dangelo Rangel MD [facility] CPT-28053 Level 4 Est. Patient 08:57:51 SUSPENDER CUTTER Checo Conklin MD [facility] CPT-49386 Level 3 Est. Patient 11:24:55 SUSPENDER CUTTER Efren almendarez [facility] CPT-15410 Level 3 Est. Patient 13:05:44 CDT Paul Hamlin MD [facility] CPT-12122 Level 3 Est. Patient 11:29:55 CDT Checo Conklin MD [facility] CPT-58517 Level 4 Est. Patient 11:08:12 SUSPENDER CUTTER Checo Conklin MD [facility] CPT-94753 Level 4 Est. Patient 16:06:48 SUSPENDER CUTTER Checo Conklin MD [facility] CPT-66910 Level 3 Est. Patient 09:11:49 CDT Efren almendarez [facility] CPT-33465 Level 2 Est. Patient 19:53:27 CDT Tanner hill MD [facility] CPT-75930 Level 3 Est. Patient 09:15:34 CDT Efren almendarez [facility]-81495 Level 3 Est. Patient 11:28:51 SUSPENDER CUTTER Efren almendarez APRN [facility] CPT-57188 Level 4 Est. Patient 13:55:46 SUSPENDER CUTTER Checo Conklin MD [facility] CPT-71140 Level 4 Est. Patient 17:10:53 CDT Checo Conklin MD [facility] CPT-75774 Level 3 Est. Patient 15:56:22 CDT Checo Conklin MD [facility] CPT-58634 Level 3 Est. Patient 15:29:07 CDT Checo Conklin MD [facility] CPT-36934 Level 3 Est. Patient 14:38:41 CDT Checo Conklin MD [facility] CPT-26899 Level 3 Est. Patient 15:22:03 SUSPENDER CUTTER Thomas reynolds DO [facility] CPT-13984 Level 3 Est. Patient 13:34:17 SUSPENDER CUTTER Checo Conklin MD [facility] CPT-31168 Level 3 Est. Patient 12:29:32 CDT Dangelo arroyo MD [facility] CPT-28416 Level 3 Est. Patient 16:53:02 CDT Checo Conklin MD [facility] CPT-74645 Level 3 Est. Patient 16:37:13 CDT Checo Conklin MD [facility] CPT-51343 Level 3 Est. Patient 16:16:59 CDT Paul Hamlin MD [facility] CPT-46664 Level 3 Est. Patient 14:20:13 CDT Dangelo arroyo MD [facility] CPT-06943 Level 4 Est. Patient 11:29:33 CDT Checo Conklin MD [facility] CPT-00320 Level 3 Est. Patient 17:08:31 CDT Checo Conklin MD [facility] CPT-25594 Level 3 Est. Patient 16:50:42 SUSPENDER CUTTER Checo Conklin MD [facility] CPT-88533 Level 4 Est. Patient 09:26:08 SUSPENDER CUTTER Checo Conklin MD [facility] CPT-06496 Level 3 Est. Patient 11:37:10 CDT Checo Conklin MD [facility] CPT-60747 Level 4 Est. Patient 14:07:38 CDT Checo Conklin MD [facility] CPT-12789 Level 3 Est. Patient 09:54:41 CDT Checo Conklin MD [facility] CPT-57667 Level 3 Est. Patient 11:10:54 CDT Paul Hamlin MD [facility] CPT-75091 Level 3 Est. Patient 14:16:56 SUSPENDER CUTTER Checo Conklin MD [facility] CPT-61410 Level 3 Est. Patient 11:04:11 SUSPENDER CUTTER Checo Conklin MD [facility] CPT-10077 Level 3 Est. Patient 17:09:26 CDT Dangelo arroyo MD [facility] CPT-23441 Level 3 Est. Patient 16:54:37 CDT Checo Conklin MD [facility] Procedures Code Procedure Name Date Entry Date Standard Desc ription CPT-94394 Abx/Therapy Injection 18:17:48 CDT CPT-J2550 Phenergan 25 mg (Promethazine) 16:48:23 CDT CPT-J1885 Toradol 60 mg 16:48:23 CDT CPT-92952 Wrist, right, comp 3V - XRAY USE ONLY 09:24:31 CDT CPT-09720 Abd compl w upright - XRAY USE ONLY 1 1:36:54 SUSPENDER CUTTER CPT-42835 UA w micro - LAB USE ONLY 17:06:46 CDT 2015 CPT-09254 BHCG Qual - LAB USE ONLY 17:06:46 CDT 05/06 CPT-13669 CMP - LAB USE ONLY 17:06:46 CDT CPT-32043 CBC with Diff - LAB USE ONLY 17:06:45 CDT 2 CPT-19292 Venipuncture Draw Fee 17:06:45 CDT CPT-LR Lesion Removal 19:53:27 CDT CPT-OV Office Visit 11:31:28 CDT CPT-40915 Tubersol 09:39:29 CDT CPT-J2550 Phenergan 25 mg (Promethazine) 13:59:02 SUSPENDER CUTTER CPT-J1885 Toradol 60 mg (Ketorolac) 13:59:02 SUSPENDER CUTTER 2012
--- OUTSIDE RECORDS SUMMARY | 2019-09-29 01:22 | XMS REPORT | Clinical Summary ---
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.9 Inactive Hilaria Conklin MD Abdominal pain ICD-789.00 Inactive Checo ngo [...] Sinusitis, acute ICD-461.9 Inactive Checo Ortiz MD BRONCHITIS, ACUTE ICD-466.0 Inactive Checo gallagher MD Medication List Medication Instructions Start Date Stop Date Generic Name NDC Status Provider Patient Instruction PAROXETINE HCL 20 MG ORAL TABS 1.5 po qd PAROX ETINE HCL 69248558197 Active HI Kerns Active FLUTICASONE PROPIONATE 50 MCG/ACT NASAL SUSP 2 sprays/ nostril qd PRN Congestion/Allergies FLUTICASONE PROPIONATE 9774856084 5 No Longer Active Checo Conklin MD Active AMOXICILLIN 500 MG ORAL CAPS 2 po BID x 10 days 09/12 AMOXICILLIN 42765276763 No Longer Active Checo Conklin MD Activ e MIRALAX ORAL POWD 8.5 to 17g po qd PRN Constipation POLYETHYLENE GLYCOL 3350 [id number] Active Checo Conklin MD Active CLARITIN 10 MG TAB 1 tablet by mouth daily as needed for allergi es LORATADINE 93899478878 No Longer Active Checo Conklin MD Active BACTRIM DS 800-160 MG TAB 1 tab by mouth twice daily 2 TRIMETHOPRIM-SULFAMETHOXAZOLE 28519523844 No Longer Active Tanner Carrillo MD Active DIFLUCAN 150 MG TAB 1 tablet by mouth qod FLUCO NAZOLE 37219660482 No Longer Active Efren Medel APRN Active AZITHROMYCIN 250 MG TABS 2 po qd x 1 day, then 1 po qd x 4 days AZITHROMYCIN 36585800924 No Longer Active Efren Medel APRN Active FLAGYL 500 MG TAB 1 tablet by mouth bid METRONI DAZOLE 91328372412 No Longer Active Checo Conklin MD Active FOCALIN XR 10 MG ORAL [id number] 1 po q a.m. DEX METHYLPHENIDATE HCL 63118072076 Active Checo Conklin MD Active MAGNESIUM CITRATE 1.745 GM/30ML ORAL SOLN 150ml po BID PRN C onstipation MAGNESIUM CITRATE 34881927020 No Longer Active Checo Conklin MD Active BACTROBAN 2 % CREAM Apply to affected area BID for up to 10 days MUPIROCIN CALCIUM 34279977990 No Longer Active Checo Conklin MD Active HYDROCODONE-ACETAMINOPHEN 5-325 MG TABS 1 tab by mouth every 6 hours as needed HYDROCODONE-ACETAMINOPHEN 68703367620 No Longer Activ e Checo Conklin MD Active IBUPROFEN 800 MG TABS 1 tab every 8 hours with food 20 31/03/21 IBUPROFEN 29332443149 No Longer Active Checo Conklin MD Activ e DIFLUCAN 150 MG TAB 1 tablet by mouth if needed, hold until symptoms start FLUCONAZOLE 35857734091 No Longer Active Checo Ortiz MD Active BACTRIM DS 800-160 MG TAB 1 tab by mouth twice daily 2 TRIMETHOPRIM-SULFAMETHOXAZOLE 73073901363 No Longer Active Corry leong LPN Active HYDROCODONE-ACETAMINOPHEN 5-325 MG TABS 0.5 to 1 tab b y mouth every 6 hours as needed HYDROCODONE-ACETAMINOPHEN 98598529102 No Longer Active Checo Conklin MD Active ONDANSETRON [address] one tablet on tongue and allow to dissolve every 6 hours as needed for vomitting ONDANSETRO N 79192296259 No Longer Active Checo Conklin MD Active COMPRO 25 MG RECTAL SUPP insert or apply one supposit ory rectally as directed every 12 hours as needed for nausea PROCHLORPERA ZINE 79635633902 No Longer Active Checo Conklin MD Active SUMATRIPTAN SUCCINATE 100 MG ORAL TABS Take one PRN for migrane SUMATRIPTAN SUCCINATE 49909636923 No Longer Active Checo Conklin MD Active TRAVEL SICKNESS 25 MG ORAL CHEW chew and swallow one t ablet every 6 hours as needed MECLIZINE HCL 00715925411 No Longer Active Joe Conklin MD Active BUPROPION HCL ER (SR) 100 MG ORAL [id number] take one t ablet by mouth one time daily for one week then take 1 two times daily BUPROPION HCL 26207785560 No Longer Active Checo Conklin MD Activ e TERBINAFINE HCL 250 MG ORAL TABS take one table PO one time abran y TERBINAFINE HCL 67249690441 No Longer Active Checo Conklin MD Active METOCLOPRAMIDE HCL 10 MG ORAL TABS take one PO tid PRN nausea 20 29/12/14 METOCLOPRAMIDE HCL 58852574806 No Longer Active Checo Conklin MD Active DICLOFENAC SODIUM 75 MG TBEC 1 tablet by mouth twice daily P RN Knee pain DICLOFENAC SODIUM 14345551109 No Longer Active Checo Conklin MD Active LAMISIL 250 MG TAB 1 po qd TERBINAFINE HCL 548 70421975 No Longer Active Checo Conklin MD Active REGLAN 10 MG TAB 1 po TID PRN Nausea METOCLOPRA MIDE HCL 70357134375 No Longer Active Checo Conklin MD Active CELEXA 20 MG TABS 1 tablet by mouth daily CITALOPRAM HYDROBROMIDE 02588071334 No Longer Active Checo Conklin MD Activ e AZITHROMYCIN 250 MG TABS 2 po qd x 1 day, then 1 po qd x 4 days AZITHROMYCIN 70691480447 No Longer Active Checo Conklin MD Active HYDROCODONE-ACETAMINOPHEN 5-325 MG TABS 1 po q 6hr PRN Pain 2013 HYDROCODONE-ACETAMINOPHEN 80525304605 No Longer Active Lenora Conklin MD Active PHENAZOPYRIDINE HCL 200 MG TABS take 1 tab po TID for bladder pa in PHENAZOPYRIDINE HCL 65666644790 No Longer Active Checo Joshua Active CIPRO 500 MG TAB 1 tablet by mouth twice daily CIPROFLOXACIN HCL 69615442484 No Longer Active Dangelo Rangel MD Active HYDROCODONE-ACETAMINOPHEN 5-325 MG TABS 1/2 to 1 po q 4 hour s prn cough HYDROCODONE-ACETAMINOPHEN 77645981457 No Longer Activ e Dangelo Rangel MD Active BACTRIM DS 800-160 MG TABS 1 po BID x 7 days 0 SULFAMETHOXAZOLE-TRIMETHOPRIM 59501588148 No Longer Active Checo Conklin MD Active PREDNISONE 20 MG TAB 2 tabs daily for 3 days, 1 t ab daily for 3 days, 1/2 tab daily for 2 days PREDNISONE 33598765733 No Longer Active Checo Conklin MD Active TRIAMCINOLONE ACETONIDE 0.1 % OINT Apply to affected a reas TID for up to 2 weeks TRIAMCINOLONE ACETONIDE 63735238460 No Longer A ctive Checo Conklin MD Active CEFDINIR 300 MG CAPS by mouth twice a day CEFDI JAZZY 68666045740 No Longer Active Dangelo Rangel MD Active BUPROPION HCL (SMOKING DETER) 150 MG [id number] 1 a day for 1 week then 1 twice a day BUPROPION HCL (SMOKING DETER) 66273423329 No Lo nger Active Checo Conklin MD Active SIMVASTATIN 20 MG TABS 1 po qd SIMVASTATIN 6908973020 5 Active Checo Conklin MD Active CHANTIX STARTING MONTH KARTHIK 0.5 MG X 11 & 1 MG X 42 TAB S 0.5mg daily for 3 days, then 0.5mg BID for 4 days, then 1mg BID VARENICLINE TARTRATE 29729801766 No Longer Active Checo Conklin MD Activ e XANAX 0.5 MG TABS 1 po BID PRN anxiety ALPRAZOLAM 09008725622 Active Checo Conklin MD Active CONCERTA 18 MG CR-TABS 1 po q a.m. METHYLPHENID ATE HCL 56892723708 No Longer Active Checo Conklin MD Active AMBIEN 5 MG TAB 1 po qHS PRN Insomnia ZOLPIDEM TARTRATE 03994360471 Active Checo Conklin MD Active TRAZODONE HCL 100 MG TAB 0.5 to 1 po qHS PRN Insomnia TRAZODONE HCL 97895567250 No Longer Active Checo Conklin MD Acti ve FIORICET 325-50-40 MG TAB 1 tablet by mouth four times daily as needed [id number] 55971754062 No Longer Active Checo Conklin MD Active PHENERGAN CREAM* 25mg applied to wrist q6hr PRN Nausea PHENERGAN CREAM* No Longer Active Checo Conklin MD A ctive FLONASE 50 MCG/ACT SUSP 1 spray each nostril am and hs FLUTICASONE PROPIONATE 80939166823 No Longer Active Checo Conklin MD Activ e ANTIPYRINE-BENZOCAINE 5.4-1.4 % SOLN 1-2 drops in affected ear BENZOCAINE-ANTIPYRINE 32017327823 No Longer Active Checo Conklin MD Active CEFDINIR 300 MG CAPS 1 po bid CEFDINIR 28863031 120 No Longer Active Checo Conklin MD Active PREDNISONE 20 MG TAB 2 tabs daily for 3 days, 1 t ab daily for 3 days, 1/2 tab daily for 2 days PREDNISONE 94579050654 No Longer Active Aracelis Conklin MD Active AZITHROMYCIN 250 MG TABS 2 po qd x 1 day, then 1 po qd x 4 days AZITHROMYCIN 26584950436 No Longer Active Checo Conklin MD Active PREDNISONE 20 MG TAB 2 tabs daily for 3 days, 1 t ab daily for 3 days, 1/2 tab daily for 2 days PREDNISONE 66932472294 No Longer Active Checo Conklin MD Active ZITHROMAX Z-KARTHIK 250 MG TABS 2 today, then 1 daily for 4 days 201 09/18/28 AZITHROMYCIN 35628185495 No Longer Active Paul Hamlin MD Active FOCALIN XR 10 MG [id number] 1 po q a.m. D EXMETHYLPHENIDATE HCL 32608310898 No Longer Active Paul Hmalin MD Activ e PERCOCET 10-325 MG TABS 1 tablet every 6 hours as needed for pain OXYCODONE-ACETAMINOPHEN 98234522087 No Longer Active Paul Hamlin MD Active LORTAB 5 5-500 MG TABS 1/2 to 1 tablet by mouth flaquito ry 4 hours as needed for pain HYDROCODONE-ACETAMINOPHEN 23800680519 No Longer Active Checo Conklin MD Active FOCALIN XR 15 MG [id number] 1 po q a.m. D EXMETHYLPHENIDATE HCL 25164708987 No Longer Active Checo Conklin MD Activ e ZOFRAN ODT 4 MG TBDP 1 po q6hr PRN Nausea ONDAN SETRON 62760126584 No Longer Active Checo Conklin MD Active PERCOCET 5-325 MG TABS 1 tablet by mouth every 6 hours as needed OXYCODONE-ACETAMINOPHEN 01712741451 No Longer Active Checo Conklin MD Active PYRIDIUM 200 MG TABS take 1 tab po TID prn urinary pain. 0 PHENAZOPYRIDINE HCL 73233425070 No Longer Active Checo Conklin MD Active FLUCONAZOLE 150 MG TABS take 1 tab po qday once 04/06 FLUCONAZOLE 54352821193 No Longer Active Dangelo Rangel MD Acti ve CIPRO 500 MG TAB 1 tablet by mouth twice daily CIPROFLOXACIN HCL 41613234770 No Longer Active Dangelo Rangel MD Active PYRIDIUM 200 MG TABS take 1 tab po TID prn urinary pain. 0 PYRIDIUM 200 MG TABS 9867071 PHENAZOPYRIDINE HCL Inactive PERCOCET 5-325 MG TABS 1 tablet by mouth every 6 hours as needed PERCOCET 5-325 MG TABS 9238131 OXYCODONE-ACETAMINOPHEN I nactive ZOFRAN ODT 4 MG TBDP 1 po q6hr PRN Nausea ZOFRAN ODT 4 MG TBDP 008038 ONDANSETRON Inactive FOCALIN XR 15 MG [id number] 1 po q a.m. F OCALIN XR 15 MG [id number] DEXMETHYLPHENIDATE HCL Inactive LORTAB 5 5-500 MG TABS 1/2 to 1 tablet by mouth flaquito ry 4 hours as needed for pain LORTAB 5 5-500 MG TABS HYDROCODONE-A CETAMINOPHEN Inactive PERCOCET 10-325 MG TABS 1 tablet every 6 hours as needed for pain PERCOCET 10-325 MG TABS 6823185 OXYCODONE-ACETAMINOPHEN Inactive FOCALIN XR 10 MG [id number] 1 po q a.m. F OCALIN XR 10 MG [id number] DEXMETHYLPHENIDATE HCL Inactive CEFDINIR 300 MG CAPS 1 po bid CEFDINIR 300 MG CAPS 20 0346 CEFDINIR Inactive ANTIPYRINE-BENZOCAINE 5.4-1.4 % SOLN 1-2 drops in affected ear ANTIPYRINE-BENZOCAINE 5.4-1.4 % SOLN BENZOCAINE-ANTIPYRINE I nactive FLONASE 50 MCG/ACT SUSP 1 spray each nostril am and hs FLONASE 50 MCG/ACT SUSP 3864598 FLUTICASONE PROPIONATE Inactive PHENERGAN CREAM* 25mg applied to wrist q6hr PRN Nausea PHENERGAN CREAM* Inactive FIORICET 325-50-40 MG TAB 1 tablet by mouth four times daily as needed FIORICET 325-50-40 MG TAB ACETAMINOPHEN-C AFF-BUTALBITAL Inactive TRAZODONE HCL 100 MG TAB 0.5 to 1 po qHS PRN Insomnia TRAZODONE HCL 100 MG TAB 840633 TRAZODONE HCL Inactive CONCERTA 18 MG CR-TABS 1 po q a.m. CONCERTA 18 MG CR-TABS METHYLPHENIDATE HCL Inactive CHANTIX STARTING MONTH KARTHIK 0.5 MG X 11 & 1 MG X 42 TAB S 0.5mg daily for 3 days, then 0.5mg BID for 4 days, then 1mg BID CHANTIX STARTING MONTH KARTHIK 0.5 MG X 11 & 1 MG X 42 TABS VARENICLINE TARTRATE Inactive HYDROCODONE-ACETAMINOPHEN 5-325 MG TABS 1/2 to 1 po q 4 hour s prn cough HYDROCODONE-ACETAMINOPHEN 5-325 MG TABS 084937 HYDROCODONE-ACETAMINOPHEN Inactive PHENAZOPYRIDINE HCL 200 MG TABS take 1 tab po TID for bladder pa in PHENAZOPYRIDINE HCL 200 MG TABS 5560494 PHENAZOPYRIDINE HCL Inactive HYDROCODONE-ACETAMINOPHEN 5-325 MG TABS 1 po q 6hr PRN Pain 2013 HYDROCODONE-ACETAMINOPHEN 5-325 MG TABS 088304 HYDROCODONE-ACETAMINOPHEN Inactive CELEXA 20 MG TABS 1 tablet by mouth daily CELEXA 20 MG TABS 597230 CITALOPRAM HYDROBROMIDE Inactive REGLAN 10 MG TAB 1 po TID PRN Nausea REGLAN 10 MG TAB 232273 METOCLOPRAMIDE HCL Inactive LAMISIL 250 MG TAB 1 po qd LAMISIL 250 MG TAB 231930 TERBINAFINE HCL Inactive DICLOFENAC SODIUM 75 MG TBEC 1 tablet by mouth twice daily P RN Knee pain DICLOFENAC SODIUM 75 MG TBEC 522051 DICLOFENAC S ODIUM Inactive METOCLOPRAMIDE HCL 10 MG ORAL TABS take one PO tid PRN nausea 20 29/12/14 METOCLOPRAMIDE HCL 10 MG ORAL TABS 188573 METOCLOPRAMID E HCL Inactive TERBINAFINE HCL 250 MG ORAL TABS take one table PO one time abran y TERBINAFINE HCL 250 MG ORAL TABS 885291 TERBINAFINE HCL Inactive BUPROPION HCL ER (SR) 100 MG ORAL [id number] take one t ablet by mouth one time daily for one week then take 1 two times daily BUPROPION HCL ER (SR) 100 MG ORAL [id number] BUPROPION HCL Inacti ve TRAVEL SICKNESS 25 MG ORAL CHEW chew and swallow one t ablet every 6 hours as needed TRAVEL SICKNESS 25 MG ORAL CHEW 100592 MECLIZINE HCL Inactive SUMATRIPTAN SUCCINATE 100 MG ORAL TABS Take one PRN for migrane SUMATRIPTAN SUCCINATE 100 MG ORAL TABS 442014 SUMATRIPT AN SUCCINATE Inactive COMPRO 25 MG RECTAL SUPP insert or apply one supposit ory rectally as directed every 12 hours as needed for nausea COMP RO 25 MG RECTAL SUPP 493748 PROCHLORPERAZINE Inactive ONDANSETRON [address] one tablet on tongue and allow to dissolve every 6 hours as needed for vomitting ON DANSETRON 8 MG ORAL TBDP 888656 ONDANSETRON Inactive HYDROCODONE-ACETAMINOPHEN 5-325 MG TABS 0.5 to 1 tab b y mouth every 6 hours as needed HYDROCODONE-ACETAMINOPHEN 5-325 MG TABS 8 73978 HYDROCODONE-ACETAMINOPHEN Inactive BACTRIM DS 800-160 MG TAB 1 tab by mouth twice daily 2 BACTRIM DS 800-160 MG TAB 753968 TRIMETHOPRIM-SULFAMETHOXAZOLE Inac tive DIFLUCAN 150 MG TAB 1 tablet by mouth if needed, hold until symptoms start DIFLUCAN 150 MG TAB 233635 FLUCONAZOLE Inactive IBUPROFEN 800 MG TABS 1 tab every 8 hours with food 31/03/21 IBUPROFEN 800 MG TABS 959103 IBUPROFEN Inactive HYDROCODONE-ACETAMINOPHEN 5-325 MG TABS 1 tab by mouth every 6 hours as needed HYDROCODONE-ACETAMINOPHEN 5-325 MG TABS 686988 HYDROCODONE-ACETAMINOPHEN Inactive BACTROBAN 2 % CREAM Apply to affected area BID for up to 10 days BACTROBAN 2 % CREAM 766840 MUPIROCIN CALCIUM Inactive MAGNESIUM CITRATE 1.745 GM/30ML ORAL SOLN 150ml po BID PRN C onstipation MAGNESIUM CITRATE 1.745 GM/30ML ORAL SOLN 470786 0 MAGNESIUM CITRATE Inactive DIFLUCAN 150 MG TAB 1 tablet by mouth qod DIFLUCAN 150 MG TAB 765785 FLUCONAZOLE Inactive BACTRIM DS 800-160 MG TAB 1 tab by mouth twice daily 2 BACTRIM DS 800-160 MG TAB 150718 TRIMETHOPRIM-SULFAMETHOXAZOLE Inac tive CLARITIN 10 MG TAB 1 tablet by mouth daily as needed for allergi es CLARITIN 10 MG TAB 831104 LORATADINE Inactive FLUTICASONE PROPIONATE 50 MCG/ACT NASAL SUSP 2 sprays/ nostril qd PRN Congestion/Allergies FLUTICASONE PROPION ATE 50 MCG/ACT NASAL SUSP 5827067 FLUTICASONE PROPIONATE Inactive CIPRO 500 MG TAB 1 tablet by mouth twice daily CIPRO 500 MG TAB 266810 CIPROFLOXACIN HCL Inactive FLUCONAZOLE 150 MG TABS take 1 tab po qday once 04/06 FLUCONAZOLE 150 MG TABS 339604 FLUCONAZOLE Inactive ZITHROMAX Z-KARTHIK 250 MG TABS 2 today, then 1 daily for 4 days 201 09/18/28 ZITHROMAX Z-KARTHIK 250 MG TABS 3814414 AZITHROMYCIN Inac tive PREDNISONE 20 MG TAB 2 tabs daily for 3 days, 1 t ab daily for 3 days, 1/2 tab daily for 2 days PREDNISONE 20 MG TAB 068420 PREDNISON E Inactive AZITHROMYCIN 250 MG TABS 2 po qd x 1 day, then 1 po qd x 4 days AZITHROMYCIN 250 MG TABS 4439652 AZITHROMYCIN Inactiv e PREDNISONE 20 MG TAB 2 tabs daily for 3 days, 1 t ab daily for 3 days, 1/2 tab daily for 2 days PREDNISONE 20 MG TAB 955021 PREDNISON E Inactive CEFDINIR 300 MG CAPS by mouth twice a day CEFDINIR 300 MG CAPS 686454 CEFDINIR Inactive TRIAMCINOLONE ACETONIDE 0.1 % OINT Apply to affected a reas TID for up to 2 weeks TRIAMCINOLONE ACETONIDE 0.1 % OINT 714587 6 TRIAMCINOLONE ACETONIDE Inactive PREDNISONE 20 MG TAB 2 tabs daily for 3 days, 1 t ab daily for 3 days, 1/2 tab daily for 2 days PREDNISONE 20 MG TAB 993398 PREDNISON E Inactive BACTRIM DS 800-160 MG TABS 1 po BID x 7 days 0 BACTRIM DS 800-160 MG TABS 066641 SULFAMETHOXAZOLE-TRIMETHOPRIM Inactive CIPRO 500 MG TAB 1 tablet by mouth twice daily CIPRO 500 MG TAB 884833 CIPROFLOXACIN HCL Inactive AZITHROMYCIN 250 MG TABS 2 po qd x 1 day, then 1 po qd x 4 days AZITHROMYCIN 250 MG TABS 8352230 AZITHROMYCIN Inactiv e FLAGYL 500 MG TAB 1 tablet by mouth bid FLAGYL 500 MG TAB 715437 METRONIDAZOLE Inactive AZITHROMYCIN 250 MG TABS 2 po qd x 1 day, then 1 po qd x 4 days AZITHROMYCIN 250 MG TABS 8707590 AZITHROMYCIN Inactiv e AMOXICILLIN 500 MG ORAL CAPS 2 po BID x 10 days 09/12 AMOXICILLIN 500 MG ORAL CAPS 247229 AMOXICILLIN Inactive Immunizations Vaccine Administration Date Value Standard Michael cription TB-PPD (tuberculin purified protein derivative), intra dermal administration Tubersol Vital Signs Date Name Value Unit Range Description blood pressure, diastolic - 8462-4 83 mm[Hg] BP mathew blood pressure, systolic - 8480-6 127 mm[Hg] BP sys height E&M - 8302-2 63.5 [in_us] Bdy h eight pulse rate E&M - 8867-4 90 /min H eart rate temperature E&M 98.7 [degF] Body temp erature weight E&M - 3141-9 121.6 [lb_av] Weigh t Measured blood pressure, diastolic - 8462-4 88 mm[Hg] BP mathew blood pressure, systolic - 8480-6 125 mm[Hg] BP sys height E&M - 8302-2 63.5 [in_us] Bdy h eight pulse rate E&M - 8867-4 78 /min H eart rate temperature E&M 97.9 [degF] Body temp erature weight E&M - 3141-9 125.8 [lb_av] Weigh t Measured blood pressure, diastolic - 8462-4 68 mm[Hg] BP mathew blood pressure, systolic - 8480-6 122 mm[Hg] BP sys pulse rate E&M - 8867-4 69 /min H eart rate temperature E&M 98.3 [degF] Body temp erature weight E&M - 3141-9 130.3 [lb_av] Weigh t Measured blood pressure, diastolic - 8462-4 73 mm[Hg] BP mathew blood pressure, systolic - 8480-6 112 mm[Hg] BP sys pulse rate E&M - 8867-4 65 /min H eart rate temperature E&M 97.5 [degF] Body temp erature weight E&M - 3141-9 126 [lb_av] Weigh t Measured Diagnostic Results Date Name Value Unit Range Description Lab Report: CBC W/DIFF, Comp. Metabolic Panel, Qual [facility] [place] - Chemistry sodium, serum 139 mmol/L 796-341 1984/10/21 carbon dioxide, venous blood 33.5 mmol/L 21.0-32 .0 potassium, serum 4.3 mmol/L 3.5-5.2 chloride, serum 103 mmol/L 98-107 blood glucose 91 mg/dL 65-110 urea nitrogen, blood 10 mg/dL 7-18 creatinine, serum 0.70 mg/dL 0.55-1.30 alanine aminotransferase (SGPT), serum 17 U/L 12-78 aspartate aminotransferase (SGOT), serum 15 U/L 15-37 calcium, serum 8.9 mg/dL 8.5-10.1 bilirubin, serum, total 1.20 mg/dL 0.00-1.00 Lab Report: CBC W/DIFF, Comp. Metabolic Panel, Qual [facility] [place] - Hematology leukocyte count, blood 7.9 10^3/MM^3 10*3/mm3 4.6-10.2 neutrophils as percent of blood leukocytes 65.5 % 42.2-75.2 monocytes as percent of blood leukocytes 4.1 % 1.7-9.3 lymphocytes as percent of blood leukocytes 27.5 % 20.5-51.1 erythrocyte (RBC) count 4.53 10^6/MM^3 10*6/mm3 4.04-5.4 8 hemoglobin, blood 14.8 g/dL 12.0-16.0 hematocrit, blood 43.7 % 36.0-46.0 mean corpuscular volume, RBC 97 fL 80-97 mean corpuscular hemoglobin, RBC 32.6 pg 27. 0-31.2 mean corpuscular hemoglobin concentration, RBC 33.8 G/DL % 31.8-35.4 red blood cell distribution width 13.8 % 11 .6-14.8 platelet count 248 10^3/MM^3 10*3/mm3 142-424 Lab Report: CBC-QUEST, COMPREHENSIVE MET ABOLIC PANEL, LIPID PANEL - Chemistry cholesterol, serum 192 mg/dL 768-134 8039/02/20 HDL cholesterol, serum 31 mg/dL > OR = 46 triglyceride, serum, fasting 138 mg/dL <150 LDL cholesterol, serum 133 MG/DL (CALC) mg/dL <130 cholesterol/HDL ratio, serum 6.2 (calc) < OR = 5.0 Lab Report: CBC-QUEST, COMPREHENSIVE MET ABOLIC PANEL, LIPID PANEL - Hematology leukocyte count, blood 8.7 THOUSAND/UL 10*3/mm3 3.8-10.8 erythrocyte (RBC) count 4.37 MILLION/UL 10*6/mm3 3.80-5. 10 hemoglobin, blood 13.7 g/dL 11.7-15.5 hematocrit, blood 42.2 % 35.0-45.0 mean corpuscular volume, RBC 96.5 fL 80.0-10 0.0 mean corpuscular hemoglobin, RBC 31.4 pg 27. 0-33.0 mean corpuscular hemoglobin concentration, RBC 32.6 G/DL % 32.0-36.0 red blood cell distribution width 13.5 % 11 .0-15.0 platelet count 218 THOUSAND/UL 10*3/mm3 969-159 8901/02/20 mean platelet volume 9.7 fL 7.5-12.5 Lab Report: Chlamydia/GC APTIMA/15539 - Lab chlamydia DNA probe NOT DETECTED NOT DETECTED Lab Report: Chlamydia/GC APTIMA/30347 - Microbiology Neisseria gonorrhoeae DNA probe NOT DETECTED NO T DETECTED Lab Report: UADIP W/MICRO, AUTO - Chemis try protein, total urine random Negative mg/dL Negative RBC, urine, dipstick 2+ Negative Lab Report: UADIP W/MICRO, AUTO - Urinal ysis urobilinogen, urine, semiquantitative (dipstick) 0.2 Normal leukocyte esterase, urine, by dipstick Negative Negative nitrite, urine, semiquantitative Negative Neg ative glucose, urine, semiquantitative Negative Neg ative ketones, urine, by test strip Negative Negati ve bilirubin, urine Negative Negative urine color Yellow Colorless;Lightyellow;St raw;Yellow appearance, urine Clear Clear specific gravity, urine >=1.030 1.000-1.030 pH, urine, semiquantitative 5.5 5.0-8.5 Encounters Code Encounter Date Provider Facility CPT-70770 Level 3 Est. Patient 11:29:55 CDT Checo Conklin MD [facility] CPT-07732 Level 4 Est. Patient 11:08:12 FAMILY LITERACY COORDINATOR Checo Conklin MD [facility] CPT-82314 Level 4 Est. Patient 16:06:48 FAMILY LITERACY COORDINATOR Checo Conklin MD [facility] CPT-18174 Level 3 Est. Patient 09:11:49 CDT Efren almendarez [facility] CPT-10615 Level 2 Est. Patient 19:53:27 CDT Tanner hill MD [facility] CPT-95198 Level 3 Est. Patient 09:15:34 CDT Efren almendarez [facility] CPT-05447 Level 3 Est. Patient 11:28:51 FAMILY LITERACY COORDINATOR Efren almendarez [facility] CPT-57122 Level 4 Est. Patient 13:55:46 FAMILY LITERACY COORDINATOR Checo Conklin MD [facility] CPT-24622 Level 4 Est. Patient 17:10:53 CDT Checo Conklin MD [facility] CPT-18752 Level 3 Est. Patient 15:56:22 CDT Checo Conklin MD [facility] CPT-00894 Level 3 Est. Patient 15:29:07 CDT Checo Conklin MD [facility] CPT-92472 Level 3 Est. Patient 14:38:41 CDT Checo Conklin MD [facility] CPT-30597 Level 3 Est. Patient 15:22:03 FAMILY LITERACY COORDINATOR Thomas reynolds DO [facility] CPT-33098 Level 3 Est. Patient 13:34:17 FAMILY LITERACY COORDINATOR Checo Conklin MD [facility] CPT-15521 Level 3 Est. Patient 12:29:32 CDT Dangelo arroyo MD [facility] CPT-73847 Level 3 Est. Patient 16:53:02 CDT Checo Conklin MD [facility] CPT-78163 Level 3 Est. Patient 16:37:13 CDT Checo Conklin MD [facility] CPT-82956 Level 3 Est. Patient 16:16:59 CDT Paul Hamlin MD [facility] CPT-34682 Level 3 Est. Patient 14:20:13 CDT Dangelo arroyo MD [facility] CPT-99034 Level 4 Est. Patient 11:29:33 CDT Checo Conklin MD [facility] CPT-30021 Level 3 Est. Patient 17:08:31 CDT Checo Conklin MD [facility] CPT-03003 Level 3 Est. Patient 16:50:42 FAMILY LITERACY COORDINATOR Checo Conklin MD [facility] CPT-48841 Level 4 Est. Patient 09:26:08 FAMILY LITERACY COORDINATOR Checo Conklin MD [facility] CPT-33164 Level 3 Est. Patient 11:37:10 CDT Checo Conklin MD [facility] CPT-21544 Level 4 Est. Patient 14:07:38 CDT Checo Conklin MD [facility] CPT-67138 Level 3 Est. Patient 09:54:41 CDT Checo Conklin MD [facility] CPT-17302 Level 3 Est. Patient 11:10:54 CDT Paul Hamlin MD [facility] CPT-51096 Level 3 Est. Patient 14:16:56 FAMILY LITERACY COORDINATOR Checo Conklin MD [facility] CPT-22079 Level 3 Est. Patient 11:04:11 FAMILY LITERACY COORDINATOR Checo Conklin MD [facility] CPT-85335 Level 3 Est. Patient 17:09:26 CDT Dangelo arroyo MD [facility] CPT-70615 Level 3 Est. Patient 16:54:37 CDT Checo Conklin MD [facility] Procedures Code Procedure Name Date Entry Date Standard Desc ription CPT-22883 UA w micro - LAB USE ONLY 17:06:46 CDT 2015 CPT-41507 [facility]CG Qual - LAB USE ONLY 17:06:46 CDT 05/06 CPT-45482 CMP - LAB USE ONLY 17:06:46 CDT CPT-40883 CBC with Diff - LAB USE ONLY 17:06:45 CDT 2 CPT-37127 Venipuncture Draw Fee 17:06:45 CDT CPT-LR Lesion Removal 19:53:27 CDT CPT-OV Office Visit 11:31:28 CDT CPT-75724 Tubersol 09:39:29 CDT CPT-J2550 Phenergan 25 mg (Promethazine) 13:59:02 FAMILY LITERACY COORDINATOR CPT-J1885 Toradol 60 mg (Ketorolac) 13:59:02 FAMILY LITERACY COORDINATOR 2012
--- OUTSIDE RECORDS SUMMARY | 2019-09-29 01:22 | XMS REPORT | Clinical Summary ---
Author Author Admin, Bethany Gonzales Organization [employer] Address Unknown Phone Unavailable Allergies, Adverse Reactions, [...] in limb Body Mass Index 25.0-25.9 Adult Active 2017 Dangelo Rangel MD Body Mass Index 25.0-25.9, adult Generalized edema 782.3 Active Cehco Conklin MD Edema FH BREAST CANCER ICD-V16.3 Inactive Checo Joshua FH DIABETES ICD-V18.0 Inactive Checo Conklin MD 201 08/27/26 CONCUSSION ICD-850.9 Inactive Checo Joshua UTI ICD-599.0 Inactive Checo Conklin MD 2013 PHARYNGITIS ICD-462 Inactive Checo Conklin MD ABDOMINAL PAIN RIGHT LOWER QUADRANT ICD-789.03 Inactive Checo Conklin MD HEADACHE, TENSION ICD-307.81 Inactive Checo Conklin MD Hypoglycemia, unspecified ICD-251.2 Inactive Checo Conklin MD Insomnia ICD-780.52 Inactive Checo Joshua Breast mass, right ICD-611.72 Inactive Checo Conklin MD OTITIS MEDIA-RIGHT ICD-382.9 Inactive Checo Conklin MD Sinusitis ICD-461.9 Inactive Checo Conklin MD Onychomycosis, toenails ICD-110.1 Inactive Aracelis Conklin MD Carbuncle/furuncle NOS ICD-680.9 Inactive Hilaria Conklin MD Mastalgia ICD-611.71 Inactive Checo Joshua Insect bite ICD-919.4 Inactive Checo Conklin MD Knee pain, right ICD-719.46 Inactive Checo gallagher MD Vertigo ICD-780.4 Inactive Checo Conklin MD 2014 Abscess, skin ICD-682.9 Inactive Checo richey MD BRONCHITIS, ACUTE ICD-466.0 Inactive Checo gallagher MD Pharyngitis ICD-462 Inactive Checo Conklin MD Cough ICD-786.2 Ozzy Conklin MD 2016 Pedal edema ICD-782.3 Inactive Checo Conklin MD 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 Checo Conklin MD Abdominal pain, generalized ICD-789.07 Ozzy Conklin MD Urinary frequency ICD-788.41 Ozzy Conklin MD Abdominal pain ICD-789.00 Ozzy ngo MD Repeated falls ICD-781.99 Ozzy ngo MD Abdominal pain, generalized ICD-789.07 Inactive Checo Conklin MD Nausea ICD-787.02 Ozzy Conklin MD 201 02/15/12 Bacterial vaginosis ICD-616.10 Inactive Lenora Conklin MD Sinusitis, acute ICD-461.9 Inactive Checo Ortiz MD Medication List Medication Instructions Start Date Stop Date Generic Name NDC Status Provider Patient Instruction HYDROCHLOROTHIAZIDE 12.5 MG ORAL CAPSULE 1 po qd PRN Edema HYDROCHLOROTHIAZIDE 76131085996 Active Checo Conklin MD Ac tive IBUPROFEN 800 MG ORAL TABLET 1 tab every 8 hours as needed for p ain IBUPROFEN 46055959676 Active Dangelo Rangel MD Acti ve PAROXETINE HCL 40 MG ORAL TABLET 1 po qd PAR OXETINE HCL 84167346016 Active Checo Conklin MD Active MIRALAX ORAL POWDER 8.5 to 17g po qd PRN Constipation POLYETHYLENE GLYCOL 3350 42867006185 No Longer Active Checo Conklin MD Active PROTONIX 40 MG ORAL TABLET DELAYED RELEASE 1 pill by [facility] daily, for acid reflux PANTOPRAZOLE SODIUM 56835201166 No Longer Activ e Corry Méndez LPN Active FLAGYL 500 MG ORAL TABLET 1 tablet by mouth bid 08/29 METRONIDAZOLE 17659053910 No Longer Active Corry Méndez LPN Active CLARITHROMYCIN 500 MG ORAL TABLET 1 tab po BID x 14 days CLARITHROMYCIN 36941060276 No Longer Active Corry Méndez LPN Active AMOXICILLIN 500 MG ORAL CAPSULE 2 po BID x 14 days for H. Pylori AMOXICILLIN 95841256215 No Longer Active Corry Méndez LPN Active FLUTICASONE PROPIONATE 50 MCG/ACT NASAL SUSPENSION 2 s prays/nostril qd PRN Congestion/Allergies FLUTICASONE PROPIONATE 1337229497 9 No Longer Active Checo Conklin MD Active AMOXICILLIN 500 MG ORAL CAPSULE 2 po BID x 10 days 201 01/15/27 AMOXICILLIN 89495656035 No Longer Active Checo Conklin MD Activ e CLARITIN 10 MG ORAL TABLET 1 tablet by mouth daily as needed for allergies LORATADINE 01108346592 No Longer Active Checo Ortiz MD Active BACTRIM DS 800-160 MG ORAL TABLET 1 tab by mouth twice daily 201 12/19/26 TRIMETHOPRIM-SULFAMETHOXAZOLE 48845071355 No Longer Active Ragini Carrillo MD Active DIFLUCAN 150 MG ORAL TABLET 1 tablet by mouth qod 2015 FLUCONAZOLE 23438824889 No Longer Active Efren Medel APRN Act mike AZITHROMYCIN 250 MG ORAL TABLET 2 po qd x 1 day, then 1 po q d x 4 days AZITHROMYCIN 17753839034 No Longer Active Efren flores APRN Active FLAGYL 500 MG ORAL TABLET 1 tablet by mouth bid 04/13 METRONIDAZOLE 23675776947 No Longer Active Checo Conklin MD Acti ve FOCALIN XR 10 MG ORAL CAPSULE EXTENDED RELEASE 24 HOUR 1 po q a.m. DEXMETHYLPHENIDATE HCL 92174763758 Active Checo Conklin MD Active MAGNESIUM CITRATE 1.745 GM/30ML ORAL SOLUTION 150ml po BID P RN Constipation MAGNESIUM CITRATE 53672371701 No Longer Active Checo Conklin MD Active BACTROBAN 2 % EXTERNAL CREAM Apply to affected area BID for up to 10 days MUPIROCIN CALCIUM 08669473387 No Longer Active Checo Conklin MD Active HYDROCODONE-ACETAMINOPHEN 5-325 MG ORAL TABLET 1 tab b y mouth every 6 hours as needed HYDROCODONE-ACETAMINOPHEN 56825886387 No Longer Active Checo Conklin MD Active IBUPROFEN 800 MG ORAL TABLET 1 tab every 8 hours with food 03/20 IBUPROFEN 15529085405 No Longer Active Checo Conklin MD Active DIFLUCAN 150 MG ORAL TABLET 1 tablet by mouth if neede d, hold until symptoms start FLUCONAZOLE 22837267769 No Longer Active Checo Conklin MD Active BACTRIM DS 800-160 MG ORAL TABLET 1 tab by mouth twice daily 201 11/23/03 TRIMETHOPRIM-SULFAMETHOXAZOLE 91954112510 No Longer Active Bonnie Méndez LPN Active HYDROCODONE-ACETAMINOPHEN 5-325 MG ORAL TABLET 0.5 to 1 tab by mouth every 6 hours as needed HYDROCODONE-ACETAMINOPHEN 25881503271 No Longer Active Checo Conklin MD Active ONDANSETRON 8 MG ORAL TABLET DISINTEGRATING place one tablet on tongue and allow to dissolve every 6 hours as needed for vomitting ONDANSETRON 80448960510 No Longer Active Checo Conklin MD Activ e COMPRO 25 MG RECTAL SUPPOSITORY insert or apply one garza ppository rectally as directed every 12 hours as needed for nausea PROCHLORPERAZINE 21470207099 No Longer Active Checo Conklin MD A ctive SUMATRIPTAN SUCCINATE 100 MG ORAL TABLET Take one PRN for migran e SUMATRIPTAN SUCCINATE 49002979601 No Longer Active Checo Conklin MD Active TRAVEL SICKNESS 25 MG ORAL TABLET CHEWABLE chew and sw allow one tablet every 6 hours as needed MECLIZINE HCL 88376722257 No Longer A ctive Checo Conklin MD Active BUPROPION HCL ER (SR) 100 MG ORAL TABLET EXTENDED RELE ASE 12 HOUR take one tablet by mouth one time daily for one week then take 1 two times daily BUPROPION HCL 14028955877 No Longer Active Checo gallagher MD Active TERBINAFINE HCL 250 MG ORAL TABLET take one table PO one time da moises TERBINAFINE HCL 61367649280 No Longer Active Checo Conklin MD Active METOCLOPRAMIDE HCL 10 MG ORAL TABLET take one PO tid PRN nausea METOCLOPRAMIDE HCL 56319223524 No Longer Active Checo Conklin MD Active DICLOFENAC SODIUM 75 MG ORAL TABLET DELAYED RELEASE 1 tablet by mouth twice daily PRN Knee pain DICLOFENAC SODIUM 87947045882 No Longer Active Checo Conklin MD Active LAMISIL 250 MG ORAL TABLET 1 po qd TERBINAFI NE HCL 39677002793 No Longer Active Checo Conklin MD Active REGLAN 10 MG ORAL TABLET 1 po TID PRN Nausea 3 METOCLOPRAMIDE HCL 47363017281 No Longer Active Checo Conklin MD Active CELEXA 20 MG ORAL TABLET 1 tablet by mouth daily 09/26 CITALOPRAM HYDROBROMIDE 18180034480 No Longer Active Checo Conklin MD Active AZITHROMYCIN 250 MG ORAL TABLET 2 po qd x 1 day, then 1 po q d x 4 days AZITHROMYCIN 27083943830 No Longer Active Checo Ortiz MD Active HYDROCODONE-ACETAMINOPHEN 5-325 MG ORAL TABLET 1 po q 6hr PRN Pa in HYDROCODONE-ACETAMINOPHEN 27379574928 No Longer Active Lenora Conklin MD Active PHENAZOPYRIDINE HCL 200 MG ORAL TABLET take 1 tab po TID for bladder pain PHENAZOPYRIDINE HCL 75188875719 No Longer Active Joe Conklin MD Active CIPRO 500 MG ORAL TABLET 1 tablet by mouth twice daily CIPROFLOXACIN HCL 89490158385 No Longer Active Dangelo Rangel MD Active HYDROCODONE-ACETAMINOPHEN 5-325 MG ORAL TABLET 1/2 to 1 po q 4 hours prn cough HYDROCODONE-ACETAMINOPHEN 31125215707 No Longer Activ e Dangelo Rangel MD Active BACTRIM DS 800-160 MG ORAL TABLET 1 po BID x 7 days 29/04/10 SULFAMETHOXAZOLE-TRIMETHOPRIM 21446798355 No Longer Active Checo Conklin MD Active PREDNISONE 20 MG ORAL TABLET 2 tabs daily for 3 days, 1 tab daily for 3 days, 1/2 tab daily for 2 days PREDNISONE 49236347108 No Longer Active Checo Conklin MD Active TRIAMCINOLONE ACETONIDE 0.1 % EXTERNAL OINTMENT Apply to affected areas TID for up to 2 weeks TRIAMCINOLONE ACETONIDE 28468730284 No Longer Active Checo Conklin MD Active CEFDINIR 300 MG ORAL CAPSULE by mouth twice a day 2013 CEFDINIR 62423192819 No Longer Active Dangelo Rangel MD Acti ve BUPROPION HCL ER (SMOKING DET) 150 MG ORAL TABLET EXTE NDED RELEASE 12 HOUR 1 a day for 1 week then 1 twice a day BUPROPION HCL (SMOKING DETER) 15206094511 No Longer Active Checo Conklin MD Active SIMVASTATIN 20 MG ORAL TABLET 1 po qd SIMVASTAT IN 19412399231 Active Checo Conklin MD Active CHANTIX STARTING MONTH KARTHIK 0.5 MG X 11 & 1 MG X 42 ORA L TABLET 0.5mg daily for 3 days, then 0.5mg BID for 4 days, then 1mg BID VARENICLINE TARTRATE 37016157642 No Longer Active Checo Conklin MD Activ e XANAX 0.5 MG ORAL TABLET 1 po BID PRN anxiety A LPRAZOLAM 89193505645 Active Checo Conklin MD Active CONCERTA 18 MG ORAL TABLET EXTENDED RELEASE 1 po q a.m. METHYLPHENIDATE HCL 23928633370 No Longer Active Checo Conklin MD Active AMBIEN 5 MG ORAL TABLET 1 po qHS PRN Insomnia Z OLPIDEM TARTRATE 16583983548 Active Checo Conklin MD Active TRAZODONE HCL 100 MG ORAL TABLET 0.5 to 1 po qHS PRN Insomnia 20 30/07/08 TRAZODONE HCL 70511918583 No Longer Active Checo Conklin MD Active FIORICET 325-50-40 MG TAB 1 tablet by mouth four times daily as needed [id number] 35510455334 No Longer Active Checo Conklin MD Active PHENERGAN CREAM* 25mg applied to wrist q6hr PRN Nausea PHENERGAN CREAM* No Longer Active Checo Gonzales ctive FLONASE 50 MCG/ACT NASAL SUSPENSION 1 spray each nostril am and hs FLUTICASONE PROPIONATE 26331644750 No Longer Active Checo Conklin MD Active ANTIPYRINE-BENZOCAINE 5.4-1.4 % OTIC SOLUTION 1-2 drops in affec yohannes ear BENZOCAINE-ANTIPYRINE 48393541837 No Longer Active Cehco Conklin MD Active CEFDINIR 300 MG ORAL CAPSULE 1 po bid CEFDINIR 00763380657 No Longer Active Checo Conklin MD Active PREDNISONE 20 MG ORAL TABLET 2 tabs daily for 3 days, 1 tab daily for 3 days, 1/2 tab daily for 2 days PREDNISONE 98754279322 No Longer Active Checo Conklin MD Active AZITHROMYCIN 250 MG ORAL TABLET 2 po qd x 1 day, then 1 po q d x 4 days AZITHROMYCIN 17936486705 No Longer Active Checo Ortiz MD Active PREDNISONE 20 MG ORAL TABLET 2 tabs daily for 3 days, 1 tab daily for 3 days, 1/2 tab daily for 2 days PREDNISONE 91901286646 No Longer Active Checo Conklin MD Active ZITHROMAX Z-KARTHIK 250 MG ORAL TABLET 2 today, then 1 daily for 4 d ays AZITHROMYCIN 70288003325 No Longer Active Paul Hamlin MD Active FOCALIN XR 10 MG ORAL CAPSULE EXTENDED RELEASE 24 HOUR 1 po q a. m. DEXMETHYLPHENIDATE HCL 21823728032 No Longer Active Paul Hamlin MD Active PERCOCET 10-325 MG ORAL TABLET 1 tablet every 6 hours as needed for pain OXYCODONE-ACETAMINOPHEN 43177548894 No Longer Active Paul Hamlin MD Active LORTAB 5-500 MG ORAL TABLET 1/2 to 1 tablet by mouth e very 4 hours as needed for pain HYDROCODONE-ACETAMINOPHEN 85242455591 No Longer Active Checo Conklin MD Active FOCALIN XR 15 MG ORAL CAPSULE EXTENDED RELEASE 24 HOUR 1 po q a. m. DEXMETHYLPHENIDATE HCL 05968010246 No Longer Active Checo Conklin MD Active ZOFRAN ODT 4 MG ORAL TABLET DISINTEGRATING 1 po q6hr PRN Nausea ONDANSETRON 40813177538 No Longer Active Checo Conklin MD Active PERCOCET 5-325 MG ORAL TABLET 1 tablet by mouth every 6 hour s as needed OXYCODONE-ACETAMINOPHEN 14261605282 No Longer Active Checo Conklin MD Active PYRIDIUM 200 MG ORAL TABLET take 1 tab po TID prn urinary pain. PHENAZOPYRIDINE HCL 17122509736 No Longer Active Checo Joshua Active FLUCONAZOLE 150 MG ORAL TABLET take 1 tab po qday once FLUCONAZOLE 68852708492 No Longer Active Dangelo Rangel MD Acti ve CIPRO 500 MG ORAL TABLET 1 tablet by mouth twice daily CIPROFLOXACIN HCL 56605001788 No Longer Active Dangelo Rangel MD Active PYRIDIUM 200 MG ORAL TABLET take 1 tab po TID prn urinary pain. PYRIDIUM 200 MG ORAL TABLET 9913226 PHENAZOPYRIDINE HCL Inactive PERCOCET 5-325 MG ORAL TABLET 1 tablet by mouth every 6 hour s as needed PERCOCET 5-325 MG ORAL TABLET 0747746 OXYCODONE-ACETAMINOPHEN Inactive ZOFRAN ODT 4 MG ORAL TABLET DISINTEGRATING 1 po q6hr PRN Nausea ZOFRAN ODT 4 MG ORAL TABLET DISINTEGRATING 856117 ONDAN SETRON Inactive FOCALIN XR 15 MG [...] for pain PERCOCET 10-325 MG ORAL TABLET 9913453 OXYCODONE-ACETAMI NOPHEN Inactive FOCALIN XR 10 MG ORAL CAPSULE EXTENDED RELEASE 24 HOUR 1 po q a. m. FOCALIN XR 10 MG ORAL CAPSULE EXTENDED RELEASE 24 HOUR DEXMETHYLPHENIDATE HCL Inactive CEFDINIR 300 MG ORAL CAPSULE 1 po bid CEFDINI R 300 MG ORAL CAPSULE 421383 CEFDINIR Inactive ANTIPYRINE-BENZOCAINE 5.4-1.4 % OTIC SOLUTION 1-2 drops in affec yohannes ear ANTIPYRINE-BENZOCAINE 5.4-1.4 % OTIC SOLUTION BENZOCAINE-ANTIPYRINE Inactive FLONASE 50 MCG/ACT NASAL SUSPENSION 1 spray each nostril am and hs FLONASE 50 MCG/ACT NASAL SUSPENSION 3994665 FLUTICASONE PROPIONATE I nactive PHENERGAN CREAM* 25mg applied to wrist q6hr PRN Nausea PHENERGAN CREAM* Inactive FIORICET 325-50-40 MG TAB 1 tablet by mouth four times daily as needed FIORICET 325-50-40 MG TAB ACETAMINOPHEN-C AFF-BUTALBITAL Inactive TRAZODONE HCL 100 MG ORAL TABLET 0.5 to 1 po qHS PRN Insomnia 20 30/07/08 TRAZODONE HCL 100 MG ORAL TABLET 039748 TRAZODONE HCL Inactive CONCERTA 18 MG ORAL [...] cough HYDROCODONE-ACETAMINOPHEN 5-325 MG ORAL TABLET 8 59558 HYDROCODONE-ACETAMINOPHEN Inactive PHENAZOPYRIDINE HCL 200 MG ORAL TABLET take 1 tab po TID for bladder pain PHENAZOPYRIDINE HCL 200 MG ORAL TABLET 7670226 PHENAZOPYRIDINE HCL Inactive HYDROCODONE-ACETAMINOPHEN 5-325 MG ORAL TABLET 1 po q 6hr PRN Pa in HYDROCODONE-ACETAMINOPHEN 5-325 MG ORAL TABLET 540074 HYDROCODONE-ACETAMINOPHEN Inactive CELEXA 20 MG ORAL TABLET 1 tablet by mouth daily 09/26 CELEXA 20 MG ORAL TABLET 567488 CITALOPRAM HYDROBROMIDE Inactive REGLAN 10 MG ORAL TABLET 1 po TID PRN Nausea 3 REGLAN 10 MG ORAL TABLET 070686 METOCLOPRAMIDE HCL Inactive LAMISIL 250 MG ORAL TABLET 1 po qd L AMISIL 250 MG ORAL TABLET 554825 TERBINAFINE HCL Inactive DICLOFENAC SODIUM 75 MG ORAL TABLET DELAYED RELEASE 1 tablet by mouth twice daily PRN Knee pain DICLOFENAC SODIUM 75 MG ORAL TABLET DELAYED RELEASE 926559 DICLOFENAC SODIUM Inactive METOCLOPRAMIDE HCL 10 MG ORAL TABLET take one PO tid PRN nausea METOCLOPRAMIDE HCL 10 MG ORAL TABLET 828360 METOCLOPRAM ZACH HCL Inactive TERBINAFINE HCL 250 MG ORAL TABLET take one table PO one time da moises TERBINAFINE HCL 250 MG ORAL TABLET 374548 TERBINAFINE H CL Inactive BUPROPION HCL ER [...] SICKNESS 25 M G ORAL TABLET CHEWABLE 083040 MECLIZINE HCL Inactive SUMATRIPTAN SUCCINATE 100 MG ORAL TABLET Take one PRN for migran e SUMATRIPTAN SUCCINATE 100 MG ORAL TABLET 889512 SUMATRIPTAN SUCCINATE Inactive COMPRO 25 MG RECTAL SUPPOSITORY insert or apply one garza ppository rectally as directed every 12 hours as needed for nausea COMPRO 25 MG RECTAL SUPPOSITORY 171332 PROCHLORPERAZINE Inactive ONDANSETRON 8 MG ORAL TABLET DISINTEGRATING place one tablet on tongue and allow to dissolve every 6 hours as needed for vomitting ONDANSETRON 8 MG ORAL TABLET DISINTEGRATING 287634 ONDANSETRON Inactive HYDROCODONE-ACETAMINOPHEN 5-325 MG ORAL TABLET 0.5 to 1 tab by mouth every 6 hours as needed HYDROCODONE-ACETAMIN OPHEN 5-325 MG ORAL TABLET 749161 HYDROCODONE-ACETAMINOPHEN Inactive BACTRIM DS 800-160 MG ORAL TABLET 1 tab by mouth twice daily 201 11/23/03 BACTRIM DS 800-160 MG ORAL TABLET 494608 TRIMETHOPRIM-SULFAMETHOXAZOLE Inactive DIFLUCAN 150 MG ORAL TABLET 1 tablet by mouth if neede d, hold until symptoms start DIFLUCAN 150 MG ORAL TABLET 341069 FLUCONAZ OLE Inactive IBUPROFEN 800 MG ORAL TABLET 1 tab every 8 hours with food 03/20 IBUPROFEN 800 MG ORAL TABLET 668179 IBUPROFEN Krupa ctive HYDROCODONE-ACETAMINOPHEN 5-325 MG ORAL TABLET 1 tab b y mouth every 6 hours as needed HYDROCODONE-ACETAMINOPHEN 5-325 MG ORAL TABLET 870903 HYDROCODONE-ACETAMINOPHEN Inactive BACTROBAN 2 % EXTERNAL CREAM Apply to affected area BID for up to 10 days BACTROBAN 2 % EXTERNAL CREAM 375284 MUPIROCIN CA LCIUM Inactive MAGNESIUM CITRATE 1.745 GM/30ML ORAL SOLUTION 150ml po BID P RN Constipation MAGNESIUM CITRATE 1.745 GM/30ML ORAL SOLUTION 10 61675 MAGNESIUM CITRATE Inactive DIFLUCAN 150 MG ORAL TABLET 1 tablet by mouth qod 2015 DIFLUCAN 150 MG ORAL TABLET 900920 FLUCONAZOLE Inactive BACTRIM DS 800-160 MG ORAL TABLET 1 tab by mouth twice daily 201 12/19/26 BACTRIM DS 800-160 MG ORAL TABLET 848950 TRIMETHOPRIM-SULFAMETHOXAZOLE Inactive CLARITIN 10 MG ORAL TABLET 1 tablet by mouth daily as needed for allergies CLARITIN 10 MG ORAL TABLET 802062 LORATADINE I nactive FLUTICASONE PROPIONATE 50 MCG/ACT NASAL SUSPENSION 2 s prays/nostril qd PRN Congestion/Allergies FLUTICASONE PROPION ATE 50 MCG/ACT NASAL SUSPENSION 1449666 FLUTICASONE PROPIONATE Inactive MIRALAX ORAL POWDER 8.5 to 17g po qd PRN Constipation MIRALAX ORAL POWDER 142161 POLYETHYLENE GLYCOL 3350 Inactive CIPRO 500 MG ORAL TABLET 1 tablet by mouth twice daily CIPRO 500 MG ORAL TABLET 213229 CIPROFLOXACIN HCL Inactive FLUCONAZOLE 150 MG ORAL TABLET take 1 tab po qday once FLUCONAZOLE 150 MG ORAL TABLET 491163 FLUCONAZOLE Inactive ZITHROMAX Z-KARTHIK 250 MG ORAL TABLET 2 today, then 1 daily for 4 d ays ZITHROMAX Z-KARTHIK 250 MG ORAL TABLET 901963 AZITHROMYCIN Inactive PREDNISONE 20 MG ORAL TABLET 2 tabs daily for 3 days, 1 tab daily for 3 days, 1/2 tab daily for 2 days PREDNISONE 20 MG ORAL T ABLET 170417 PREDNISONE Inactive AZITHROMYCIN 250 MG ORAL TABLET 2 po qd x 1 day, then 1 po q d x 4 days AZITHROMYCIN 250 MG ORAL TABLET 574444 AZITHROMY SPARKLE Inactive PREDNISONE 20 MG ORAL TABLET 2 tabs daily for 3 days, 1 tab daily for 3 days, 1/2 tab daily for 2 days PREDNISONE 20 MG ORAL TABLET 529933 PREDNISONE Inactive CEFDINIR 300 MG ORAL CAPSULE by mouth twice a day 2013 CEFDINIR 300 MG ORAL CAPSULE 292395 CEFDINIR Inactive TRIAMCINOLONE ACETONIDE 0.1 % EXTERNAL OINTMENT Apply to affected areas TID for up to 2 weeks TRIAMCINOLONE ACETON ZACH 0.1 % EXTERNAL OINTMENT 2843625 TRIAMCINOLONE ACETONIDE Inactive PREDNISONE 20 MG ORAL TABLET 2 tabs daily for 3 days, 1 tab daily for 3 days, 1/2 tab daily for 2 days PREDNISONE 20 MG ORAL T ABLET 055672 PREDNISONE Inactive BACTRIM DS 800-160 MG ORAL TABLET 1 po BID x 7 days 29/04/10 BACTRIM DS 800-160 MG ORAL TABLET 594044 SULFAMETHOXAZOLE-TRIMETHOP RIM Inactive CIPRO 500 MG ORAL TABLET 1 tablet by mouth twice daily CIPRO 500 MG ORAL TABLET 365126 CIPROFLOXACIN HCL Inactive AZITHROMYCIN 250 MG ORAL TABLET 2 po qd x 1 day, then 1 po q d x 4 days AZITHROMYCIN 250 MG ORAL TABLET 289641 AZITHROMY SPARKLE Inactive FLAGYL 500 MG ORAL TABLET 1 tablet by mouth bid 04/13 FLAGYL 500 MG ORAL TABLET 049057 METRONIDAZOLE Inactive AZITHROMYCIN 250 MG ORAL TABLET 2 po qd x 1 day, then 1 po q d x 4 days AZITHROMYCIN 250 MG ORAL TABLET 828124 AZITHROMY SPARKLE Inactive AMOXICILLIN 500 MG ORAL CAPSULE 2 po BID x 10 days 201 01/15/27 AMOXICILLIN 500 MG ORAL CAPSULE 117577 AMOXICILLIN Inactive AMOXICILLIN 500 MG ORAL CAPSULE 2 po BID x 14 days for H. Pylori AMOXICILLIN 500 MG ORAL CAPSULE 978159 AMOXICILLIN Inactive CLARITHROMYCIN 500 MG ORAL TABLET 1 tab po BID x 14 days CLARITHROMYCIN 500 MG ORAL TABLET 222098 CLARITHROMYCIN Inacti ve FLAGYL 500 MG ORAL TABLET 1 tablet by mouth bid 08/29 FLAGYL 500 MG ORAL TABLET 330119 METRONIDAZOLE Inactive PROTONIX 40 MG ORAL TABLET DELAYED RELEASE 1 pill by m outh daily, for acid reflux PROTONIX 40 MG ORAL TABLET DELAYED RELEAS E 568081 PANTOPRAZOLE SODIUM Inactive Immunizations Vaccine Administration Date Value Standard Michael cription TB-PPD (tuberculin purified protein derivative), intra dermal administration Tubersol Vital Signs Date Name Value Unit Range Description blood pressure, diastolic 81 mm[Hg] BP mathew [...] weight E&M 137 [lb_av] Weight Measure d blood pressure, diastolic 77 mm[Hg] BP mathew blood pressure, systolic 124 mm[Hg] BP sys pulse rate E&M 74 /min Heart rate temperature E&M 98.7 [degF] Body temp erature weight E&M 133 [lb_av] Weight Measure d Diagnostic Results Date [...] ... - Chemistry sodium, serum 138 mmol/L 873-344 3668/06/27 carbon dioxide, venous blood 30.3 mmol/L 21.0-32 [...] dipstick 1+ Negative sodium, serum 139 mmol/L 504-440 6204/11/28 carbon dioxide, venous blood 26.0 mmol/L 21.0-32 [...] Negative Encounters Code Encounter Date Provider Facility CPT-19136 Level 4 Est. Patient 11:08:43 CDT Checo Conklin MD [facility] CPT-31526 [id number] Vst-Est Level III 09:37:41 CDT Dangelo Rangel MD [facility] CPT-08370 Level 4 Est. Patient 08:57:51 TREAD TUBER MACHINE OPERATOR Checo Conklin MD [facility] CPT-61264 Level 3 Est. Patient 11:24:55 TREAD TUBER MACHINE OPERATOR Efren almendarez [facility] CPT-92432 Level 3 Est. Patient 13:05:44 CDT Paul Hamlin MD [facility] CPT-20335 Level 3 Est. Patient 11:29:55 CDT Checo Conklin MD [facility] CPT-26654 Level 4 Est. Patient 11:08:12 TREAD TUBER MACHINE OPERATOR Checo Conklin MD [facility] CPT-68258 Level 4 Est. Patient 16:06:48 TREAD TUBER MACHINE OPERATOR Checo Conklin MD [facility] CPT-32895 Level 3 Est. Patient 09:11:49 CDT Efren almendarez [facility] CPT-59285 Level 2 Est. Patient 19:53:27 CDT Tanner hill MD [facility] CPT-82043 Level 3 Est. Patient 09:15:34 CDT Efren almendarez [facility] CPT-08861 Level 3 Est. Patient 11:28:51 TREAD TUBER MACHINE OPERATOR Efren almendarez [facility] CPT-79339 Level 4 Est. Patient 13:55:46 TREAD TUBER MACHINE OPERATOR Checo Conklin MD [facility] CPT-73987 Level 4 Est. Patient 17:10:53 CDT Checo Conklin MD [facility] CPT-85286 Level 3 Est. Patient 15:56:22 CDT Checo Conklin MD [facility] CPT-49554 Level 3 Est. Patient 15:29:07 CDT Checo Conklin MD [facility] CPT-12131 Level 3 Est. Patient 14:38:41 CDT Checo Conklin MD [facility] CPT-51616 Level 3 Est. Patient 15:22:03 TREAD TUBER MACHINE OPERATOR Thomas reynolds DO [facility] CPT-65982 Level 3 Est. Patient 13:34:17 TREAD TUBER MACHINE OPERATOR Checo Conklin MD [facility] CPT-66214 Level 3 Est. Patient 12:29:32 CDT Dangelo arroyo MD [facility] CPT-87275 Level 3 Est. Patient 16:53:02 CDT Checo Conklin MD [facility] CPT-29688 Level 3 Est. Patient 16:37:13 CDT Checo Conklin MD [facility] CPT-64947 Level 3 Est. Patient 16:16:59 CDT Paul Hamlin MD [facility] CPT-40206 Level 3 Est. Patient 14:20:13 CDT Dangelo arroyo MD [facility] CPT-18915 Level 4 Est. Patient 11:29:33 CDT Checo Conklin MD [facility] CPT-31283 Level 3 Est. Patient 17:08:31 CDT Checo Conklin MD [facility] CPT-09972 Level 3 Est. Patient 16:50:42 TREAD TUBER MACHINE OPERATOR Checo Conklin MD [facility] CPT-17450 Level 4 Est. Patient 09:26:08 TREAD TUBER MACHINE OPERATOR Checo Conklin MD [facility] CPT-42802 Level 3 Est. Patient 11:37:10 CDT Checo Conklin MD [facility] CPT-02257 Level 4 Est. Patient 14:07:38 CDT Checo Conklin MD [facility] CPT-52631 Level 3 Est. Patient 09:54:41 CDT Checo Conklin MD [facility] CPT-25169 Level 3 Est. Patient 11:10:54 CDT Paul Hamlin MD [facility] CPT-98481 Level 3 Est. Patient 14:16:56 [employer] MACHINE OPERATOR Chceo Conklin MD [facility] CPT-83787 Level 3 Est. Patient 11:04:11 TREAD TU[employer] MACHINE OPERATOR Checo Conklin MD [facility] CPT-50593 Level 3 Est. Patient 17:09:26 CDT Dangelo arroyo MD [facility] CPT-72886 Level 3 Est. 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
--- OUTSIDE RECORDS SUMMARY | 2019-09-29 01:23 | XMS REPORT | Clinical Summary ---
Author Author Admin, Bethany Gonzales Organization [facility] Address Unknown Phone Unavailable Allergies, Adverse Reactions, [...] infection, site not specified Anxiety 300.00 Active Chceo Conklin MD Anxiety state, unspecified A D [...] health care facility OTITIS MEDIA-RIGHT 382.9 Resolved Cehco richey MD Unspecified otitis media Onychomycosis, toenails [...] Conklin MD Urinary frequency Sinusitis, acute 461.9 Active Checo Joshua Acute sinusitis, unspecified FH BREAST CANCER ICD-V16.3 [...] ICD-611.71 Inactive Checo Joshua Sinusitis ICD-461.9 Inactive Cheoc Conklin MD Insect bite ICD-919.4 Inactive Checo [...] Urinary frequency ICD-788.41 Inactive Checo Conklin MD Medication List Medication Instructions Start Date Stop Date Generic Name NDC Status Provider Patient Instruction AMOXICILLIN 500 MG ORAL CAPS 2 po BID x 10 days 09/12 AMOXICILLIN [id number] No Longer Active Checo Conklin MD Activ e PAROXETINE HCL 20 MG ORAL TABS 0.5 po qd 6 days, then 1 po qd 09/02 PAROXETINE HCL 41173816767 Active Checo Conklin MD Active FLUTICASONE PROPIONATE 50 MCG/ACT NASAL SUSP 2 sprays/ nostril qd PRN Congestion/Allergies FLUTICASONE PROPIONATE 15909556627 Ac tive Checo Conklin MD Active MIRALAX ORAL POWD 8.5 to 17g po qd PRN Constipation POLYETHYLENE GLYCOL 3350 25720347559 Active Checo Conklin MD Active CLARITIN 10 MG TAB 1 tablet by mouth daily as needed for allergi es LORATADINE 53036037706 No Longer Active Checo Conklin MD Active BACTRIM DS 800-160 MG TAB 1 tab by mouth twice daily 2 TRIMETHOPRIM-SULFAMETHOXAZOLE 68889266748 No Longer Active Tanner Carrillo MD Active DIFLUCAN 150 MG TAB 1 tablet by mouth qod FLUCO NAZOLE 83301497263 No Longer Active Efren Medel APRN Active AZITHROMYCIN 250 MG TABS 2 po qd x 1 day, then 1 po qd x 4 days AZITHROMYCIN 30621010577 No Longer Active Efren Medel APRN Active FLAGYL 500 MG TAB 1 tablet by mouth bid METRONI DAZOLE 83349741397 No Longer Active Checo Conklin MD Active FOCALIN XR 10 MG ORAL [id number] 1 po q a.m. DEX METHYLPHENIDATE HCL 71782647679 Active Checo Conklin MD Active MAGNESIUM CITRATE 1.745 GM/30ML ORAL SOLN 150ml po BID PRN C onstipation MAGNESIUM CITRATE 24659728604 No Longer Active Checo Conklin MD Active BACTROBAN 2 % CREAM Apply to affected area BID for up to 10 days MUPIROCIN CALCIUM 10317745880 No Longer Active Checo Conklin MD Active HYDROCODONE-ACETAMINOPHEN 5-325 MG TABS 1 tab by mouth every 6 hours as needed HYDROCODONE-ACETAMINOPHEN 28334571378 No Longer Activ e Checo Conklin MD Active IBUPROFEN 800 MG TABS 1 tab every 8 hours with food 31/03/21 IBUPROFEN 28333319108 No Longer Active Checo Conklin MD Activ e DIFLUCAN 150 MG TAB 1 tablet by mouth if needed, hold until symptoms start FLUCONAZOLE 85645012518 No Longer Active Checo Ortiz MD Active BACTRIM DS 800-160 MG TAB 1 tab by mouth twice daily 2 TRIMETHOPRIM-SULFAMETHOXAZOLE 41013702668 No Longer Active Corry leong LPN Active HYDROCODONE-ACETAMINOPHEN 5-325 MG TABS 0.5 to 1 tab b y mouth every 6 hours as needed HYDROCODONE-ACETAMINOPHEN 06052493081 No Longer Active Checo Conklin MD Active ONDANSETRON [address] one tablet on tongue and allow to dissolve every 6 hours as needed for vomitting ONDANSETRO N 15282022226 No Longer Active Checo Conklin MD Active COMPRO 25 MG RECTAL SUPP insert or apply one supposit ory rectally as directed every 12 hours as needed for nausea PROCHLORPERA ZINE 83290750677 No Longer Active Checo Conklin MD Active SUMATRIPTAN SUCCINATE 100 MG ORAL TABS Take one PRN for migrane SUMATRIPTAN SUCCINATE 79514424021 No Longer Active Checo Conklin MD Active TRAVEL SICKNESS 25 MG ORAL CHEW chew and swallow one t ablet every 6 hours as needed MECLIZINE HCL 77074683934 No Longer Active Joe Conklin MD Active BUPROPION HCL ER (SR) 100 MG ORAL [id number] take one t ablet by mouth one time daily for one week then take 1 two times daily BUPROPION HCL 76603795609 No Longer Active Checo Conklin MD Activ e TERBINAFINE HCL 250 MG ORAL TABS take one table PO one time abran y TERBINAFINE HCL 56953215771 No Longer Active Checo Conklin MD Active METOCLOPRAMIDE HCL 10 MG ORAL TABS take one PO tid PRN nausea 20 29/12/14 METOCLOPRAMIDE HCL 58519769799 No Longer Active Checo Conklin MD Active DICLOFENAC SODIUM 75 MG TBEC 1 tablet by mouth twice daily P RN Knee pain DICLOFENAC SODIUM 32911110866 No Longer Active Checo Conklin MD Active LAMISIL 250 MG TAB 1 po qd TERBINAFINE HCL 548 34135114 No Longer Active Checo Conklin MD Active REGLAN 10 MG TAB 1 po TID PRN Nausea METOCLOPRA MIDE HCL 13136095126 No Longer Active Checo Conklin MD Active CELEXA 20 MG TABS 1 tablet by mouth daily CITALOPRAM HYDROBROMIDE 37393958167 No Longer Active Checo Conklin MD Activ e AZITHROMYCIN 250 MG TABS 2 po qd x 1 day, then 1 po qd x 4 days AZITHROMYCIN 03285404052 No Longer Active Checo Conklin MD Active HYDROCODONE-ACETAMINOPHEN 5-325 MG TABS 1 po q 6hr PRN Pain 2013 HYDROCODONE-ACETAMINOPHEN 53483780420 No Longer Active Lenora Conklin MD Active PHENAZOPYRIDINE HCL 200 MG TABS take 1 tab po TID for bladder pa in PHENAZOPYRIDINE HCL 87549615986 No Longer Active Checo Joshua Active CIPRO 500 MG TAB 1 tablet by mouth twice daily CIPROFLOXACIN HCL 39086464045 No Longer Active Dangelo Rangel MD Active HYDROCODONE-ACETAMINOPHEN 5-325 MG TABS 1/2 to 1 po q 4 hour s prn cough HYDROCODONE-ACETAMINOPHEN 58207709441 No Longer Activ e Dangelo Rangel MD Active BACTRIM DS 800-160 MG TABS 1 po BID x 7 days 0 SULFAMETHOXAZOLE-TRIMETHOPRIM 52898088678 No Longer Active Checo Conklin MD Active PREDNISONE 20 MG TAB 2 tabs daily for 3 days, 1 t ab daily for 3 days, 1/2 tab daily for 2 days PREDNISONE 86002471744 No Longer Active Checo Conklin MD Active TRIAMCINOLONE ACETONIDE 0.1 % OINT Apply to affected a reas TID for up to 2 weeks TRIAMCINOLONE ACETONIDE 11946935682 No Longer A ctive Checo Conklin MD Active CEFDINIR 300 MG CAPS by mouth twice a day CEFDI JAZZY 02481439275 No Longer Active Dangelo Rangel MD Active BUPROPION HCL (SMOKING DETER) 150 MG [id number] 1 a day for 1 week then 1 twice a day BUPROPION HCL (SMOKING DETER) 86647664613 No Lo nger Active Checo Conklin MD Active SIMVASTATIN 20 MG TABS 1 po qd SIMVASTATIN 1387235719 5 Active Checo Conklin MD Active CHANTIX STARTING MONTH KARTHIK 0.5 MG X 11 & 1 MG X 42 TAB S 0.5mg daily for 3 days, then 0.5mg BID for 4 days, then 1mg BID VARENICLINE TARTRATE 41874171128 No Longer Active Checo Conklin MD Activ e XANAX 0.5 MG TABS 1 po BID PRN anxiety ALPRAZOLAM 56529912766 Active Checo Conklin MD Active CONCERTA 18 MG CR-TABS 1 po q a.m. METHYLPHENID ATE HCL 75355816976 No Longer Active Checo Conklin MD Active AMBIEN 5 MG TAB 1 po qHS PRN Insomnia ZOLPIDEM TARTRATE 23108833681 Active Checo Conklin MD Active TRAZODONE HCL 100 MG TAB 0.5 to 1 po qHS PRN Insomnia TRAZODONE HCL 49494832871 No Longer Active Checo Conklin MD Acti ve FIORICET 325-50-40 MG TAB 1 tablet by mouth four times daily as needed [id number] 68372809952 No Longer Active Checo Conklin MD Active PHENERGAN CREAM* 25mg applied to wrist q6hr PRN Nausea PHENERGAN CREAM* No Longer Active Checo Conklin MD A ctive FLONASE 50 MCG/ACT SUSP 1 spray each nostril am and hs FLUTICASONE PROPIONATE 34754839628 No Longer Active Checo Conklin MD Activ e ANTIPYRINE-BENZOCAINE 5.4-1.4 % SOLN 1-2 drops in affected ear BENZOCAINE-ANTIPYRINE 58243590317 No Longer Active Checo Conklin MD Active CEFDINIR 300 MG CAPS 1 po bid CEFDINIR 25147294 120 No Longer Active Checo Conklin MD Active PREDNISONE 20 MG TAB 2 tabs daily for 3 days, 1 t ab daily for 3 days, 1/2 tab daily for 2 days PREDNISONE 34548129864 No Longer Active Aracelis Conklin MD Active AZITHROMYCIN 250 MG TABS 2 po qd x 1 day, then 1 po qd x 4 days AZITHROMYCIN 41608774963 No Longer Active Checo Conklin MD Active PREDNISONE 20 MG TAB 2 tabs daily for 3 days, 1 t ab daily for 3 days, 1/2 tab daily for 2 days PREDNISONE 43917970616 No Longer Active Checo Conklin MD Active ZITHROMAX Z-KARTHIK 250 MG TABS 2 today, then 1 daily for 4 days 201 09/18/28 AZITHROMYCIN 39869207306 No Longer Active Paul Hamlin MD Active FOCALIN XR 10 MG [id number] 1 po q a.m. D EXMETHYLPHENIDATE HCL 97263805550 No Longer Active Paul Hamlin MD Activ e PERCOCET 10-325 MG TABS 1 tablet every 6 hours as needed for pain OXYCODONE-ACETAMINOPHEN 99370811543 No Longer Active Paul Hamlin MD Active LORTAB 5 5-500 MG TABS 1/2 to 1 tablet by mouth flaquito ry 4 hours as needed for pain HYDROCODONE-ACETAMINOPHEN 84457241042 No Longer Active Checo Conklin MD Active FOCALIN XR 15 MG [id number] 1 po q a.m. D EXMETHYLPHENIDATE HCL 63647021565 No Longer Active Checo Conklin MD Activ e ZOFRAN ODT 4 MG TBDP 1 po q6hr PRN Nausea ONDAN SETRON 36007402499 No Longer Active Checo Conklin MD Active PERCOCET 5-325 MG TABS 1 tablet by mouth every 6 hours as needed OXYCODONE-ACETAMINOPHEN 59264182834 No Longer Active Checo Conklin MD Active PYRIDIUM 200 MG TABS take 1 tab po TID prn urinary pain. 0 PHENAZOPYRIDINE HCL 92410763409 No Longer Active Checo Conklin MD Active FLUCONAZOLE 150 MG TABS take 1 tab po qday once 04/06 FLUCONAZOLE 29569644764 No Longer Active Dangelo Rangel MD Acti ve CIPRO 500 MG TAB 1 tablet by mouth twice daily CIPROFLOXACIN HCL 98070521438 No Longer Active Dangelo Rangel MD Active PYRIDIUM 200 MG TABS take 1 tab po TID prn urinary pain. 0 PYRIDIUM 200 MG TABS 2139493 PHENAZOPYRIDINE HCL Inactive PERCOCET 5-325 MG TABS 1 tablet by mouth every 6 hours as needed PERCOCET 5-325 MG TABS 6241310 OXYCODONE-ACETAMINOPHEN I nactive ZOFRAN ODT 4 MG TBDP 1 po q6hr PRN Nausea ZOFRAN ODT 4 MG TBDP 575265 ONDANSETRON Inactive FOCALIN XR 15 MG [id number] 1 po q a.m. F OCALIN XR 15 MG [id number] DEXMETHYLPHENIDATE HCL Inactive LORTAB 5 5-500 MG TABS 1/2 to 1 tablet by mouth flaquito ry 4 hours as needed for pain LORTAB 5 5-500 MG TABS HYDROCODONE-A CETAMINOPHEN Inactive PERCOCET 10-325 MG TABS 1 tablet every 6 hours as needed for pain PERCOCET 10-325 MG TABS 4751597 OXYCODONE-ACETAMINOPHEN Inactive FOCALIN XR 10 MG [id number] 1 po q a.m. F OCALIN XR 10 MG [id number] DEXMETHYLPHENIDATE HCL Inactive CEFDINIR 300 MG CAPS 1 po bid CEFDINIR 300 MG CAPS 20 0346 CEFDINIR Inactive ANTIPYRINE-BENZOCAINE 5.4-1.4 % SOLN 1-2 drops in affected ear ANTIPYRINE-BENZOCAINE 5.4-1.4 % SOLN BENZOCAINE-ANTIPYRINE I nactive FLONASE 50 MCG/ACT SUSP 1 spray each nostril am and hs FLONASE 50 MCG/ACT SUSP FLUTICASONE PROPIONATE Inactive PHENERGAN CREAM* 25mg applied to wrist q6hr PRN Nausea PHENERGAN CREAM* Inactive FIORICET 325-50-40 MG TAB 1 tablet by mouth four times daily as needed FIORICET 325-50-40 MG TAB ACETAMINOPHEN-C AFF-BUTALBITAL Inactive TRAZODONE HCL 100 MG TAB 0.5 to 1 po qHS PRN Insomnia TRAZODONE HCL 100 MG TAB 515891 TRAZODONE HCL Inactive CONCERTA 18 MG CR-TABS [...] s prn cough HYDROCODONE-ACETAMINOPHEN 5-325 MG TABS 001191 HYDROCODONE-ACETAMINOPHEN Inactive PHENAZOPYRIDINE HCL 200 MG TABS take 1 tab po TID for bladder pa in PHENAZOPYRIDINE HCL 200 MG TABS 8278654 PHENAZOPYRIDINE HCL Inactive HYDROCODONE-ACETAMINOPHEN 5-325 MG TABS 1 po q 6hr PRN Pain 2013 HYDROCODONE-ACETAMINOPHEN 5-325 MG TABS 601843 HYDROCODONE-ACETAMINOPHEN Inactive CELEXA 20 MG TABS 1 tablet by mouth daily CELEXA 20 MG TABS 591567 CITALOPRAM HYDROBROMIDE Inactive REGLAN 10 MG TAB 1 po TID PRN Nausea REGLAN 10 MG TAB 950425 METOCLOPRAMIDE HCL Inactive LAMISIL 250 MG TAB 1 po qd LAMISIL 250 MG TAB 442434 TERBINAFINE HCL Inactive DICLOFENAC SODIUM 75 MG TBEC 1 tablet by mouth twice daily P RN Knee pain DICLOFENAC SODIUM 75 MG TBEC 661555 DICLOFENAC S ODIUM Inactive METOCLOPRAMIDE HCL 10 MG ORAL TABS take one PO tid PRN nausea 20 29/12/14 METOCLOPRAMIDE HCL 10 MG ORAL TABS 932595 METOCLOPRAMID E HCL Inactive TERBINAFINE HCL 250 MG ORAL TABS take one table PO one time abran y TERBINAFINE HCL 250 MG ORAL TABS 416991 TERBINAFINE HCL Inactive BUPROPION HCL ER (SR) 100 MG ORAL [id number] take one t ablet by mouth one time daily for one week then take 1 two times daily BUPROPION HCL ER (SR) 100 MG ORAL [id number] BUPROPION HCL Inacti ve TRAVEL SICKNESS 25 MG ORAL CHEW chew and swallow one t ablet every 6 hours as needed TRAVEL SICKNESS 25 MG ORAL CHEW 673755 MECLIZINE HCL Inactive SUMATRIPTAN SUCCINATE 100 MG ORAL TABS Take one PRN for migrane SUMATRIPTAN SUCCINATE 100 MG ORAL TABS 499569 SUMATRIPT AN SUCCINATE Inactive COMPRO 25 MG RECTAL SUPP insert or apply one supposit ory rectally as directed every 12 hours as needed for nausea COMP RO 25 MG RECTAL SUPP 458433 PROCHLORPERAZINE Inactive ONDANSETRON [address] one tablet on tongue and allow to dissolve every 6 hours as needed for vomitting ON DANSETRON 8 MG ORAL TBDP 465886 ONDANSETRON Inactive HYDROCODONE-ACETAMINOPHEN 5-325 MG TABS 0.5 to 1 tab b y mouth every 6 hours as needed HYDROCODONE-ACETAMINOPHEN 5-325 MG TABS 8 08948 HYDROCODONE-ACETAMINOPHEN Inactive BACTRIM DS 800-160 MG TAB 1 tab by mouth twice daily 2 BACTRIM DS 800-160 MG TAB 445539 TRIMETHOPRIM-SULFAMETHOXAZOLE Inac tive DIFLUCAN 150 MG TAB 1 tablet by mouth if needed, hold until symptoms start DIFLUCAN 150 MG TAB 692270 FLUCONAZOLE Inactive IBUPROFEN 800 MG TABS 1 tab every 8 hours with food 31/03/21 IBUPROFEN 800 MG TABS 182729 IBUPROFEN Inactive HYDROCODONE-ACETAMINOPHEN 5-325 MG TABS 1 tab by mouth every 6 hours as needed HYDROCODONE-ACETAMINOPHEN 5-325 MG TABS 752426 HYDROCODONE-ACETAMINOPHEN Inactive BACTROBAN 2 % CREAM Apply to affected area BID for up to 10 days BACTROBAN 2 % CREAM 318390 MUPIROCIN CALCIUM Inactive MAGNESIUM CITRATE 1.745 GM/30ML ORAL SOLN 150ml po BID PRN C onstipation MAGNESIUM CITRATE 1.745 GM/30ML ORAL SOLN 066415 0 MAGNESIUM CITRATE Inactive DIFLUCAN 150 MG TAB 1 tablet by mouth qod DIFLUCAN 150 MG TAB 730534 FLUCONAZOLE Inactive BACTRIM DS 800-160 MG TAB 1 tab by mouth twice daily 2 BACTRIM DS 800-160 MG TAB 174933 TRIMETHOPRIM-SULFAMETHOXAZOLE Inac tive CLARITIN 10 MG TAB 1 tablet by mouth daily as needed for allergi es CLARITIN 10 MG TAB 067638 LORATADINE Inactive CIPRO 500 MG TAB 1 tablet by mouth twice daily CIPRO 500 MG TAB 031154 CIPROFLOXACIN HCL Inactive FLUCONAZOLE 150 MG TABS take 1 tab po qday once 04/06 FLUCONAZOLE 150 MG TABS 695952 FLUCONAZOLE Inactive ZITHROMAX Z-KARTHIK 250 MG TABS 2 today, then 1 daily for 4 days 201 09/18/28 ZITHROMAX Z-KARTHIK 250 MG TABS 2083065 AZITHROMYCIN Inac tive PREDNISONE 20 MG TAB 2 tabs daily for 3 days, 1 t ab daily for 3 days, 1/2 tab daily for 2 days PREDNISONE 20 MG TAB 440203 PREDNISON E Inactive AZITHROMYCIN 250 MG TABS 2 po qd x 1 day, then 1 po qd x 4 days AZITHROMYCIN 250 MG TABS 4079954 AZITHROMYCIN Inactiv e PREDNISONE 20 MG TAB 2 tabs daily for 3 days, 1 t ab daily for 3 days, 1/2 tab daily for 2 days PREDNISONE 20 MG TAB 081487 PREDNISON E Inactive CEFDINIR 300 MG CAPS by mouth twice a day CEFDINIR 300 MG CAPS 166113 CEFDINIR Inactive TRIAMCINOLONE ACETONIDE 0.1 % OINT Apply to affected a reas TID for up to 2 weeks TRIAMCINOLONE ACETONIDE 0.1 % OINT 116717 6 TRIAMCINOLONE ACETONIDE Inactive PREDNISONE 20 MG TAB 2 tabs daily for 3 days, 1 t ab daily for 3 days, 1/2 tab daily for 2 days PREDNISONE 20 MG TAB 887227 PREDNISON E Inactive BACTRIM DS 800-160 MG TABS 1 po BID x 7 days 0 BACTRIM DS 800-160 MG TABS 699135 SULFAMETHOXAZOLE-TRIMETHOPRIM Inactive CIPRO 500 MG TAB 1 tablet by mouth twice daily CIPRO 500 MG TAB 069706 CIPROFLOXACIN HCL Inactive AZITHROMYCIN 250 MG TABS 2 po qd x 1 day, then 1 po qd x 4 days AZITHROMYCIN 250 MG TABS 0055927 AZITHROMYCIN Inactiv e FLAGYL 500 MG TAB 1 tablet by mouth bid FLAGYL 500 MG TAB 066998 METRONIDAZOLE Inactive AZITHROMYCIN 250 MG TABS 2 po qd x 1 day, then 1 po qd x 4 days AZITHROMYCIN 250 MG TABS 7586621 AZITHROMYCIN Inactiv e AMOXICILLIN 500 MG ORAL CAPS 2 po BID x 10 days 09/12 AMOXICILLIN 500 MG ORAL CAPS 719680 AMOXICILLIN Inactive Immunizations Vaccine Administration Date Value Standard Michael cription TB-PPD (tuberculin purified protein derivative), intra dermal administration Tubersol Vital Signs Date Name Value Unit Range Description blood pressure, diastolic - 8462-4 88 mm[Hg] [...] - 3141-9 126 [lb_av] Weigh t Measured blood pressure, diastolic - 8462-4 76 mm[Hg] BP mathew blood pressure, systolic - 8480-6 121 mm[Hg] BP sys pulse rate E&M - 8867-4 67 /min H eart rate temperature E&M 97.6 [degF] Body temp erature weight E&M - 3141-9 129.6 [lb_av] Weigh t Measured blood pressure, diastolic - 8462-4 79 mm[Hg] BP mathew blood pressure, systolic - 8480-6 114 mm[Hg] BP sys pulse rate E&M - 8867-4 81 /min H eart rate temperature E&M 97.4 [degF] Body temp erature weight E&M - 3141-9 130 [lb_av] Weigh t Measured Diagnostic Results Date Name Value Unit Range Description Lab Report: CBC W/DIFF - Hematology leukocyte count, blood 8.0 10^3/MM^3 10*3/mm3 4.6-10.2 neutrophils as percent of blood leukocytes 64.6 % 42.2-75.2 monocytes as percent of blood leukocytes 7.6 % 1.7-9.3 lymphocytes as percent of blood leukocytes 25.1 % 20.5-51.1 erythrocyte (RBC) count 4.40 10^6/MM^3 10*6/mm3 4.04-5.4 8 hemoglobin, blood 14.5 g/dL 12.0-16.0 hematocrit, blood 42.8 % 36.0-46.0 mean corpuscular volume, RBC 97 fL 80-97 mean corpuscular hemoglobin, RBC 32.9 pg 27. 0-31.2 mean corpuscular hemoglobin concentration, RBC 33.8 G/DL % 31.8-35.4 red blood cell distribution width 13.0 % 11 .6-14.8 platelet count 248 10^3/MM^3 10*3/mm3 142-424 Lab Report: CBC W/DIFF, Comp. Metabolic Panel, Qual [facility] [place] - Chemistry sodium, serum 139 mmol/L 061-625 7242/10/21 carbon dioxide, venous blood 33.5 mmol/L 21.0-32 [...] Report: CBC W/DIFF, Comp. Metabolic Panel, Qual [facility] [place] - Hematology leukocyte count, blood 7.9 10^3/MM^3 [...] PANEL - Chemistry cholesterol, serum 192 mg/dL 878-015 7823/02/20 HDL cholesterol, serum 31 mg/dL > OR [...] 11 .0-15.0 platelet count 218 THOUSAND/UL 10*3/mm3 669-645 4670/02/20 mean platelet volume 9.7 fL 7.5-12.5 Lab Report: Chlamydia/GC APTIMA/22324 - Lab chlamydia DNA probe NOT DETECTED NOT DETECTED Lab Report: Chlamydia/GC APTIMA/06932 - Microbiology Neisseria gonorrhoeae DNA probe NOT DETECTED NO T DETECTED Lab Report: Comp. Metabolic Panel, Thyro id Stimulating Hormone (L), Eryt ... - Chemistry sodium, serum 137 mmol/L 302-683 5021/05/27 carbon dioxide, venous blood 29.1 mmol/L 21.0-32 .0 potassium, serum 4.1 mmol/L 3.5-5.2 chloride, serum 103 mmol/L 98-107 blood glucose 96 mg/dL 65-110 urea nitrogen, blood 11 mg/dL 7-18 creatinine, serum 0.70 mg/dL 0.55-1.30 alanine aminotransferase (SGPT), serum 37 U/L 12-78 aspartate aminotransferase (SGOT), serum 31 U/L 15-37 calcium, serum 8.9 mg/dL 8.5-10.1 bilirubin, serum, total 1.10 mg/dL 0.00-1.00 TSH 2.59 m[iU]/mL 0.36-3.74 thyroxine, serum, free 0.97 ng/dL 0.76-1.46 Lab Report: UADIP (AUTO) - Chemistry protein, total urine random Negative mg/dL Negative RBC, urine, dipstick 2+ Negative Lab Report: UADIP (AUTO) - Urinalysis urobilinogen, urine, semiquantitative (dipstick) 0.2 Normal leukocyte esterase, urine, by dipstick Negative Negative nitrite, urine, semiquantitative Negative Neg ative glucose, urine, semiquantitative Negative Neg ative ketones, urine, by test strip Negative Negati ve bilirubin, urine Negative Negative urine color Yellow Colorless;Lightyellow;St raw;Yellow appearance, urine Clear Clear specific gravity, urine >=1.030 1.000-1.030 pH, urine, semiquantitative 5.5 5.0-8.5 Lab Report: UADIP W/MICRO, AUTO - [...] 5.0-8.5 Encounters Code Encounter Date Provider Facility CPT-17144 Level 4 Est. Patient 11:08:12 GEODETIC SURVEY DIRECTOR Checo Conklin MD [facility] CPT-73595 Level 4 Est. Patient 16:06:48 GEODETIC SURVEY DIRECTOR Checo Conklin MD [facility] CPT-31523 Level 3 Est. Patient 09:11:49 CDT Efren almendarez [facility] CPT-89152 Level 2 Est. Patient 19:53:27 CDT Tanner hill MD [facility] CPT-28075 Level 3 Est. Patient 09:15:34 CDT Efren almendarez [facility] CPT-52480 Level 3 Est. Patient 11:28:51 GEODETIC SURVEY DIRECTOR Efren almendarez [facility] CPT-18772 Level 4 Est. Patient 13:55:46 GEODETIC SURVEY DIRECTOR Checo Conklin MD [facility] CPT-12158 Level 4 Est. Patient 17:10:53 CDT Checo Conklin MD [facility] CPT-61296 Level 3 Est. Patient 15:56:22 CDT Checo Conklin MD [facility] CPT-87880 Level 3 Est. Patient 15:29:07 CDT Checo Conklin MD [facility] CPT-76937 Level 3 Est. Patient 14:38:41 CDT Checo Conklin MD [facility] CPT-53447 Level 3 Est. Patient 15:22:03 GEODETIC SURVEY DIRECTOR Thomas reynolds DO [facility] CPT-75447 Level 3 Est. Patient 13:34:17 GEODETIC SURVEY DIRECTOR Checo Conklin MD [facility] CPT-46862 Level 3 Est. Patient 12:29:32 CDT Dangelo arroyo MD [facility] CPT-37008 Level 3 Est. Patient 16:53:02 CDT Checo oCnklin MD [facility] CPT-55280 Level 3 Est. Patient 16:37:13 CDT Checo Conklin MD [facility] CPT-70564 Level 3 Est. Patient 16:16:59 CDT Paul Hamlin MD [facility] CPT-21631 Level 3 Est. Patient 14:20:13 CDT Dangelo arroyo MD [facility] CPT-79954 Level 4 Est. Patient 11:29:33 CDT Checo Conklin MD [facility] CPT-44956 Level 3 Est. Patient 17:08:31 CDT Checo Conklin MD [facility] CPT-80461 Level 3 Est. Patient 16:50:42 GEODETIC SURVEY DIRECTOR Checo Conklin MD [facility] CPT-11680 Level 4 Est. Patient 09:26:08 GEODETIC SURVEY DIRECTOR Checo Conklin MD [facility] CPT-55386 Level 3 Est. Patient 11:37:10 CDT Checo Conklin MD [facility] CPT-91327 Level 4 Est. Patient 14:07:38 CDT Checo Conklin MD [facility] CPT-95321 Level 3 Est. Patient 09:54:41 CDT Checo Conklin MD [facility] CPT-53605 Level 3 Est. Patient 11:10:54 CDT Paul Hamlin MD [facility] CPT-11416 Level 3 Est. Patient 14:16:56 GEODETIC SURVEY DIRECTOR Checo Conklin MD [facility] CPT-62929 Level 3 Est. Patient 11:04:11 GEODETIC SURVEY DIRECTOR Checo Conklin MD [facility] CPT-44993 Level 3 Est. Patient 17:09:26 CDT Dangelo arroyo MD [facility] CPT-49368 Level 3 Est. Patient 16:54:37 CDT Checo Conklin MD [facility] Procedures Code Procedure Name Date Entry Date Standard Desc ription CPT-27915 UA w micro - LAB USE ONLY 17:06:46 CDT 2015 CPT-61316 [facility] Qual - LAB USE ONLY 17:06:46 CDT 05/06 CPT-94696 CMP - LAB USE ONLY 17:06:46 CDT CPT-36930 CBC with Diff - LAB USE ONLY 17:06:45 CDT 2 CPT-59920 Venipuncture Draw Fee 17:06:45 CDT CPT-LR Lesion Removal 19:53:27 CDT CPT-OV Office Visit 11:31:28 CDT CPT-12980 Tubersol 09:39:29 CDT CPT-J2550 Phenergan 25 mg (Promethazine) 13:59:02 GEODETIC SURVEY DIRECTOR CPT-J1885 Toradol 60 mg (Ketorolac) 13:59:02 GEODETIC SURVEY DIRECTOR 2012
--- OUTSIDE RECORDS SUMMARY | 2019-09-29 01:23 | XMS REPORT | Clinical Summary ---
Author Author Admin, Bethany Ayala [facility] Address Unknown Phone Unavailable Allergies, Adverse [...] MD Vaginitis and vulvovaginitis, unspecified Pharyngitis 462 Active Jimarine Medel APRN Acute pharyngitis Cough 786.2 Active Efren Medel APRN Cough BREAST CANCER ICD-V16.3 Inactive Checo Joshua FH [...] Bacterial vaginosis ICD-616.10 Inactive Lenora Conklin MD Medication List Medication Instructions Start Date Stop Date Generic Name NDC Status Provider Patient Instruction DIFLUCAN 150 MG TAB 1 tablet by mouth qod FLUCONA ZOLE 09410782573 Active Jillina Frazell CLERICAL ADVISER Active CLARITIN 10 MG TAB 1 tablet by mouth daily as needed for allergies LORATADINE 20238105580 Active Jillina Frazell CLERICAL ADVISER Active AZITHROMYCIN 250 MG TABS 2 po qd x 1 day, then 1 po qd x 4 days AZITHROMYCIN 38343606332 No Longer Active Jillina Frazell CLERICAL ADVISER Active FLAGYL 500 MG TAB 1 tablet by mouth bid METRONI DAZOLE 04878106520 No Longer Active Checo Conklin MD Active FOCALIN XR 10 MG ORAL [id number] 1 po q a.m. DEX METHYLPHENIDATE HCL 49189981957 Active Checo Conklin MD Active MAGNESIUM CITRATE 1.745 GM/30ML ORAL SOLN 150ml po BID PRN C onstipation MAGNESIUM CITRATE 33510684846 No Longer Active Checo Conklin MD Active BACTROBAN 2 % CREAM Apply to affected area BID for up to 10 days MUPIROCIN CALCIUM 08612778670 No Longer Active Checo Conklin MD Active HYDROCODONE-ACETAMINOPHEN 5-325 MG TABS 1 tab by mouth every 6 hours as needed HYDROCODONE-ACETAMINOPHEN 93513927346 No Longer Activ e Checo Conklin MD Active IBUPROFEN 800 MG TABS 1 tab every 8 hours with food 31/03/21 IBUPROFEN 38086727108 No Longer Active Checo Conklin MD Activ e DIFLUCAN 150 MG TAB 1 tablet by mouth if needed, hold until symptoms start FLUCONAZOLE 31639047153 No Longer Active Checo Ortiz MD Active BACTRIM DS 800-160 MG TAB 1 tab by mouth twice daily 2 TRIMETHOPRIM-SULFAMETHOXAZOLE 21436757545 No Longer Active Corry leong LPN Active MIRALAX PACK 1 po qd PRN Constipation POLYETHYL JOEL GLYCOL 3350 75804457451 Active Checo Conklin MD Active HYDROCODONE-ACETAMINOPHEN 5-325 MG TABS 0.5 to 1 tab b y mouth every 6 hours as needed HYDROCODONE-ACETAMINOPHEN 64195843390 No Longer Active Checo Conklin MD Active ONDANSETRON [address] one tablet on tongue and allow to dissolve every 6 hours as needed for vomitting ONDANSETRO N 14371174624 No Longer Active Checo Conklin MD Active COMPRO 25 MG RECTAL SUPP insert or apply one supposit ory rectally as directed every 12 hours as needed for nausea PROCHLORPERA ZINE 03104673659 No Longer Active Checo Conklin MD Active SUMATRIPTAN SUCCINATE 100 MG ORAL TABS Take one PRN for migrane SUMATRIPTAN SUCCINATE 42614171293 No Longer Active Checo Conklin MD Active TRAVEL SICKNESS 25 MG ORAL CHEW chew and swallow one t ablet every 6 hours as needed MECLIZINE HCL 03386326037 No Longer Active Joe Conklin MD Active BUPROPION HCL ER (SR) 100 MG ORAL [id number] take one t ablet by mouth one time daily for one week then take 1 two times daily BUPROPION HCL 66799593861 No Longer Active Checo Conklin MD Activ e TERBINAFINE HCL 250 MG ORAL TABS take one table PO one time abran y TERBINAFINE HCL 49724310911 No Longer Active Checo Conklin MD Active METOCLOPRAMIDE HCL 10 MG ORAL TABS take one PO tid PRN nausea 20 29/12/14 METOCLOPRAMIDE HCL 92663500174 No Longer Active Checo Conklin MD Active DICLOFENAC SODIUM 75 MG TBEC 1 tablet by mouth twice daily P RN Knee pain DICLOFENAC SODIUM 72074598618 No Longer Active Checo Conklin MD Active LAMISIL 250 MG TAB 1 po qd TERBINAFINE HCL 548 78776578 No Longer Active Checo Conklin MD Active REGLAN 10 MG TAB 1 po TID PRN Nausea METOCLOPRA MIDE HCL 34445505127 No Longer Active Checo Conklin MD Active CELEXA 20 MG TABS 1 tablet by mouth daily CITALOPRAM HYDROBROMIDE 00454520900 No Longer Active Checo Conklin MD Activ e AZITHROMYCIN 250 MG TABS 2 po qd x 1 day, then 1 po qd x 4 days AZITHROMYCIN 88331977921 No Longer Active Checo Conklin MD Active HYDROCODONE-ACETAMINOPHEN 5-325 MG TABS 1 po q 6hr PRN Pain 2013 HYDROCODONE-ACETAMINOPHEN 96834005806 No Longer Active Lenora Conklin MD Active PHENAZOPYRIDINE HCL 200 MG TABS take 1 tab po TID for bladder pa in PHENAZOPYRIDINE HCL 46909632876 No Longer Active Checo Joshua Active CIPRO 500 MG TAB 1 tablet by mouth twice daily CIPROFLOXACIN HCL 99447361516 No Longer Active Dangelo Rangel MD Active HYDROCODONE-ACETAMINOPHEN 5-325 MG TABS 1/2 to 1 po q 4 hour s prn cough HYDROCODONE-ACETAMINOPHEN 57879079618 No Longer Activ e Dangelo Rnagel MD Active BACTRIM DS 800-160 MG TABS 1 po BID x 7 days 0 SULFAMETHOXAZOLE-TRIMETHOPRIM 73614585825 No Longer Active Checo Conklin MD Active PREDNISONE 20 MG TAB 2 tabs daily for 3 days, 1 t ab daily for 3 days, 1/2 tab daily for 2 days PREDNISONE 68998495126 No Longer Active Checo Conklin MD Active TRIAMCINOLONE ACETONIDE 0.1 % OINT Apply to affected a reas TID for up to 2 weeks TRIAMCINOLONE ACETONIDE 96407226705 No Longer A ctive Checo Conklin MD Active CEFDINIR 300 MG CAPS by mouth twice a day CEFDI JAZZY 59803233374 No Longer Active Dangelo Rangel MD Active BUPROPION HCL (SMOKING DETER) 150 MG [id number] 1 a day for 1 week then 1 twice a day BUPROPION HCL (SMOKING DETER) 85376503613 No Lo nger Active Checo Conklin MD Active SIMVASTATIN 20 MG TABS 1 po qd SIMVASTATIN 6825335028 5 Active Checo Conklin MD Active CHANTIX STARTING MONTH KARTHIK 0.5 MG X 11 & 1 MG X 42 TAB S 0.5mg daily for 3 days, then 0.5mg BID for 4 days, then 1mg BID VARENICLINE TARTRATE 83486927714 No Longer Active Checo Conklin MD Activ e XANAX 0.5 MG TABS 1 po BID PRN anxiety ALPRAZOLAM 80482744468 Active Checo Conklin MD Active CONCERTA 18 MG CR-TABS 1 po q a.m. METHYLPHENID ATE HCL 65809865843 No Longer Active Checo Conklin MD Active AMBIEN 5 MG TAB 1 po qHS PRN Insomnia ZOLPIDEM TARTRATE 97795001189 Active Checo Conklin MD Active TRAZODONE HCL 100 MG TAB 0.5 to 1 po qHS PRN Insomnia TRAZODONE HCL 55531014798 No Longer Active Checo Conklin MD Acti ve FIORICET 325-50-40 MG TAB 1 tablet by mouth four times daily as needed [id number] 76731913639 No Longer Active Checo Conklin MD Active PHENERGAN CREAM* 25mg applied to wrist q6hr PRN Nausea PHENERGAN CREAM* No Longer Active Checo Conklin MD A ctive FLONASE 50 MCG/ACT SUSP 1 spray each nostril am and hs FLUTICASONE PROPIONATE 79564003634 No Longer Active Checo Conklin MD Activ e ANTIPYRINE-BENZOCAINE 5.4-1.4 % SOLN 1-2 drops in affected ear BENZOCAINE-ANTIPYRINE 05964596722 No Longer Active Checo Conklin MD Active CEFDINIR 300 MG CAPS 1 po bid CEFDINIR 78941974 120 No Longer Active Checo Conklin MD Active PREDNISONE 20 MG TAB 2 tabs daily for 3 days, 1 t ab daily for 3 days, 1/2 tab daily for 2 days PREDNISONE 93443076062 No Longer Active Aracelis Conklin MD Active AZITHROMYCIN 250 MG TABS 2 po qd x 1 day, then 1 po qd x 4 days AZITHROMYCIN 26591576182 No Longer Active Checo Conklin MD Active PREDNISONE 20 MG TAB 2 tabs daily for 3 days, 1 t ab daily for 3 days, 1/2 tab daily for 2 days PREDNISONE 40562158128 No Longer Active Checo Conklin MD Active ZITHROMAX Z-KARTHIK 250 MG TABS 2 today, then 1 daily for 4 days 201 09/18/28 AZITHROMYCIN 54110132191 No Longer Active Paul Hamlin MD Active FOCALIN XR 10 MG [id number] 1 po q a.m. D EXMETHYLPHENIDATE HCL 57786286228 No Longer Active Paul Hamlin MD Activ e PERCOCET 10-325 MG TABS 1 tablet every 6 hours as needed for pain OXYCODONE-ACETAMINOPHEN 93417090816 No Longer Active Paul Hamlin MD Active LORTAB 5 5-500 MG TABS 1/2 to 1 tablet by mouth flaquito ry 4 hours as needed for pain HYDROCODONE-ACETAMINOPHEN 36910296391 No Longer Active Checo Conklin MD Active FOCALIN XR 15 MG [id number] 1 po q a.m. D EXMETHYLPHENIDATE HCL 17734652160 No Longer Active Checo Conklin MD Activ e ZOFRAN ODT 4 MG TBDP 1 po q6hr PRN Nausea ONDAN SETRON 31582998938 No Longer Active Checo Conklin MD Active PERCOCET 5-325 MG TABS 1 tablet by mouth every 6 hours as needed OXYCODONE-ACETAMINOPHEN 51659016670 No Longer Active Checo Conklin MD Active PYRIDIUM 200 MG TABS take 1 tab po TID prn urinary pain. 0 PHENAZOPYRIDINE HCL 14893065539 No Longer Active Checo Conklin MD Active FLUCONAZOLE 150 MG TABS take 1 tab po qday once 04/06 FLUCONAZOLE 44652033590 No Longer Active Dangelo Rangel MD Acti ve CIPRO 500 MG TAB 1 tablet by mouth twice daily CIPROFLOXACIN HCL 67400199067 No Longer Active Dangelo Rangel MD Active PHENERGAN CREAM* 25mg applied to wrist q6hr PRN Nausea PHENERGAN CREAM* Inactive ANTIPYRINE-BENZOCAINE 5.4-1.4 % SOLN 1-2 drops in affected ear ANTIPYRINE-BENZOCAINE 5.4-1.4 % SOLN 173405 BENZOCAINE-ANTIPYRINE I nactive BACTRIM DS 800-160 MG TAB 1 tab by mouth twice daily 2 BACTRIM DS 800-160 MG TAB 269111 TRIMETHOPRIM-SULFAMETHOXAZOLE Inac tive BACTRIM DS 800-160 MG TABS 1 po BID x 7 days 0 BACTRIM DS 800-160 MG TABS 19820918 SULFAMETHOXAZOLE-TRIMETHOPRIM Inactive CIPRO 500 MG TAB 1 tablet by mouth twice daily CIPRO 500 MG TAB 337970 CIPROFLOXACIN HCL Inactive CIPRO 500 MG TAB 1 tablet by mouth twice daily CIPRO 500 MG TAB 974306 CIPROFLOXACIN HCL Inactive FIORICET 325-50-40 MG TAB 1 tablet by mouth four times daily as needed FIORICET 325-50-40 MG TAB ACETAMINOPHEN-C AFF-BUTALBITAL Inactive FLAGYL 500 MG TAB 1 tablet by mouth bid FLAGYL 500 MG TAB 868996 METRONIDAZOLE Inactive IBUPROFEN 800 MG TABS 1 tab every 8 hours with food 31/03/21 IBUPROFEN 800 MG TABS 971588 IBUPROFEN Inactive MAGNESIUM CITRATE 1.745 GM/30ML ORAL SOLN 150ml po BID PRN C onstipation MAGNESIUM CITRATE 1.745 GM/30ML ORAL SOLN 770743 0 MAGNESIUM CITRATE Inactive METOCLOPRAMIDE HCL 10 MG ORAL TABS take one PO tid PRN nausea 20 29/12/14 METOCLOPRAMIDE HCL 10 MG ORAL TABS 194938 METOCLOPRAMID E HCL Inactive PERCOCET 5-325 MG TABS 1 tablet by mouth every 6 hours as needed PERCOCET 5-325 MG TABS 3820698 OXYCODONE-ACETAMINOPHEN I nactive PHENAZOPYRIDINE HCL 200 MG TABS take 1 tab po TID for bladder pa in PHENAZOPYRIDINE HCL 200 MG TABS 4285011 PHENAZOPYRIDINE HCL Inactive PREDNISONE 20 MG TAB 2 tabs daily for 3 days, 1 t ab daily for 3 days, 1/2 tab daily for 2 days PREDNISONE 20 MG TAB 579109 PREDNISON E Inactive PREDNISONE 20 MG TAB 2 tabs daily for 3 days, 1 t ab daily for 3 days, 1/2 tab daily for 2 days PREDNISONE 20 MG TAB 051259 PREDNISON E Inactive PREDNISONE 20 MG TAB 2 tabs daily for 3 days, 1 t ab daily for 3 days, 1/2 tab daily for 2 days PREDNISONE 20 MG TAB 687875 PREDNISON E Inactive PYRIDIUM 200 MG TABS take 1 tab po TID prn urinary pain. 0 PYRIDIUM 200 MG TABS 4860138 PHENAZOPYRIDINE HCL Inactive REGLAN 10 MG TAB 1 po TID PRN Nausea REGLAN 10 MG TAB 589826 METOCLOPRAMIDE HCL Inactive TRAZODONE HCL 100 MG TAB 0.5 to 1 po qHS PRN Insomnia TRAZODONE HCL 100 MG TAB 440162 TRAZODONE HCL Inactive TRIAMCINOLONE ACETONIDE 0.1 % OINT Apply to affected a reas TID for up to 2 weeks TRIAMCINOLONE ACETONIDE 0.1 % OINT 311929 6 TRIAMCINOLONE ACETONIDE Inactive LORTAB 5 5-500 MG TABS 1/2 to 1 tablet by mouth flaquito ry 4 hours as needed for pain LORTAB 5 5-500 MG TABS HYDROCODONE-A CETAMINOPHEN Inactive TERBINAFINE HCL 250 MG ORAL TABS take one table PO one time abran y TERBINAFINE HCL 250 MG ORAL TABS 534133 TERBINAFINE HCL Inactive SUMATRIPTAN SUCCINATE 100 MG ORAL TABS Take one PRN for migrane SUMATRIPTAN SUCCINATE 100 MG ORAL TABS 649260 SUMATRIPT AN SUCCINATE Inactive DIFLUCAN 150 MG TAB 1 tablet by mouth if needed, hold until symptoms start DIFLUCAN 150 MG TAB 706337 FLUCONAZOLE Inactive FLUCONAZOLE 150 MG TABS take 1 tab po qday once 04/06 FLUCONAZOLE 150 MG TABS 090526 FLUCONAZOLE Inactive DICLOFENAC SODIUM 75 MG TBEC 1 tablet by mouth twice daily P RN Knee pain DICLOFENAC SODIUM 75 MG TBEC 467554 DICLOFENAC S ODIUM Inactive LAMISIL 250 MG TAB 1 po qd LAMISIL 250 MG TAB 780962 TERBINAFINE HCL Inactive AZITHROMYCIN 250 MG TABS 2 po qd x 1 day, then 1 po qd x 4 days AZITHROMYCIN 250 MG TABS 4017524 AZITHROMYCIN Inactiv e AZITHROMYCIN 250 MG TABS 2 po qd x 1 day, then 1 po qd x 4 days AZITHROMYCIN 250 MG TABS 4891906 AZITHROMYCIN Inactiv e AZITHROMYCIN 250 MG TABS 2 po qd x 1 day, then 1 po qd x 4 days AZITHROMYCIN 250 MG TABS 5310639 AZITHROMYCIN Inactiv e BACTROBAN 2 % CREAM Apply to affected area BID for up to 10 days BACTROBAN 2 % CREAM 510007 MUPIROCIN CALCIUM Inactive CEFDINIR 300 MG CAPS by mouth twice a day CEFDINIR 300 MG CAPS 20021020 CEFDINIR Inactive CEFDINIR 300 MG CAPS 1 po bid CEFDINIR 300 MG CAPS 345 CEFDINIR Inactive CELEXA 20 MG TABS 1 tablet by mouth daily CELEXA 20 MG TABS 20030114 CITALOPRAM HYDROBROMIDE Inactive ZOFRAN ODT 4 MG TBDP 1 po q6hr PRN Nausea ZOFRAN ODT 4 MG TBDP 520645 ONDANSETRON Inactive ONDANSETRON [address] one tablet on tongue and allow to dissolve every 6 hours as needed for vomitting ON DANSETRON 8 MG ORAL TBDP 993177 ONDANSETRON Inactive CONCERTA 18 MG CR-TABS 1 po q a.m. CONCERTA 18 MG CR-TABS METHYLPHENIDATE HCL Inactive COMPRO 25 MG RECTAL SUPP insert or apply one supposit ory rectally as directed every 12 hours as needed for nausea COMP RO 25 MG RECTAL SUPP 230160 PROCHLORPERAZINE Inactive ZITHROMAX Z-KARTHIK 250 MG TABS 2 today, then 1 daily for 4 days 201 09/18/28 ZITHROMAX Z-KARTHIK 250 MG TABS 6881824 AZITHROMYCIN Inac tive FLONASE 50 MCG/ACT SUSP 1 spray each nostril am and hs FLONASE 50 MCG/ACT SUSP FLUTICASONE PROPIONATE Inactive PERCOCET 10-325 MG TABS 1 tablet every 6 hours as needed for pain PERCOCET 10-325 MG TABS 4388425 OXYCODONE-ACETAMINOPHEN Inactive HYDROCODONE-ACETAMINOPHEN 5-325 MG TABS 1 po q 6hr PRN Pain 2013 HYDROCODONE-ACETAMINOPHEN 5-325 MG TABS 977351 HYDROCODONE-ACETAMINOPHEN Inactive HYDROCODONE-ACETAMINOPHEN 5-325 MG TABS 0.5 to 1 tab b y mouth every 6 hours as needed HYDROCODONE-ACETAMINOPHEN 5-325 MG TABS 8 84975 HYDROCODONE-ACETAMINOPHEN Inactive HYDROCODONE-ACETAMINOPHEN 5-325 MG TABS 1 tab by mouth every 6 hours as needed HYDROCODONE-ACETAMINOPHEN 5-325 MG TABS 962343 HYDROCODONE-ACETAMINOPHEN Inactive HYDROCODONE-ACETAMINOPHEN 5-325 MG TABS 1/2 to 1 po q 4 hour s prn cough HYDROCODONE-ACETAMINOPHEN 5-325 MG TABS 671764 HYDROCODONE-ACETAMINOPHEN Inactive BUPROPION HCL ER (SR) 100 MG ORAL [id number] take one t ablet by mouth one time daily for one week then take 1 two times daily BUPROPION HCL ER (SR) 100 MG ORAL [id number]-[id number] BUPROPION HCL Inacti ve FOCALIN XR 10 MG [id number] 1 po q a.m. F OCALIN XR 10 MG [id number] DEXMETHYLPHENIDATE HCL Inactive FOCALIN XR 15 MG [id number] 1 po q a.m. F OCALIN XR 15 MG FK56N-YYC DEXMETHYLPHENIDATE HCL Inactive TRAVEL SICKNESS 25 MG ORAL CHEW chew and swallow one t ablet every 6 hours as needed TRAVEL SICKNESS 25 MG ORAL CHEW 205266 MECLIZINE HCL Inactive CHANTIX STARTING MONTH KARTHIK 0.5 MG X 11 & 1 MG X 42 TAB S 0.5mg daily for 3 days, then 0.5mg BID for 4 days, then 1mg BID CHANTIX STARTING MONTH KARTHIK 0.5 MG X 11 & 1 MG X 42 TABS VARENICLINE TARTRATE Inactive Immunizations Vaccine Administration Date Value Standard Michael cription TB-PPD (tuberculin purified protein derivative), intra dermal administration Tubersol Vital Signs Date Name Value Unit Range Description blood pressure, diastolic - 8462-4 70 mm[Hg] BP mathew blood pressure, systolic - 8480-6 112 mm[Hg] BP sys pulse rate E&M - 8867-4 68 /min H eart rate temperature E&M 98 [degF] Body temp erature weight E&M - 3141-9 127 [lb_av] Weigh t Measured blood pressure, diastolic - 8462-4 83 mm[Hg] BP mathew blood pressure, systolic - 8480-6 120 mm[Hg] BP sys pulse rate E&M - 8867-4 77 /min H eart rate temperature E&M 98.3 [degF] Body temp erature weight E&M - 3141-9 126.5 [lb_av] Weigh t Measured blood pressure, diastolic - 8462-4 77 mm[Hg] BP mathew blood pressure, systolic - 8480-6 123 mm[Hg] BP sys pulse rate E&M - 8867-4 80 /min H eart rate temperature E&M 97.2 [degF] Body temp erature weight E&M - 3141-9 131 [lb_av] Weigh t Measured blood pressure, diastolic - 8462-4 76 mm[Hg] BP mathew blood pressure, systolic - 8480-6 113 mm[Hg] BP sys pulse rate E&M - 8867-4 70 /min H eart rate temperature E&M 98.9 [degF] Body temp erature weight E&M - 3141-9 131 [lb_av] Weigh t Measured blood pressure, diastolic - 8462-4 78 mm[Hg] BP mathew blood pressure, systolic - 8480-6 120 mm[Hg] BP sys pulse rate E&M - 8867-4 75 /min H eart rate temperature E&M 98.7 [degF] Body temp erature weight E&M - 3141-9 133 [lb_av] Weigh t Measured blood pressure, diastolic - 8462-4 77 mm[Hg] BP mathew blood pressure, systolic - 8480-6 115 mm[Hg] BP sys pulse rate E&M - 8867-4 91 /min H eart rate temperature E&M 99.1 [degF] Body temp erature weight E&M - 3141-9 131.5 [lb_av] Weigh t Measured blood pressure, diastolic - 8462-4 74 mm[Hg] BP mathew blood pressure, systolic - 8480-6 109 mm[Hg] BP sys pulse rate E&M - 8867-4 71 /min H eart rate temperature E&M 97.8 [degF] Body temp erature weight E&M - 3141-9 127 [lb_av] Weigh t Measured Diagnostic Results Date Name Value Unit Range Description Lab Report: CBC - Hematology leukocyte count, blood 8.2 10^3/MM^3 10*3/mm3 4.6-10.2 erythrocyte (RBC) count 4.02 10^6/MM^3 10*6/mm3 4.04-5.4 8 hemoglobin, blood 13.2 g/dL 12.0-16.0 hematocrit, blood 39.2 % 36.0-46.0 mean corpuscular volume, RBC 98 fL 80-97 mean corpuscular hemoglobin, RBC 32.7 pg 27. 0-31.2 mean corpuscular hemoglobin concentration, RBC 33.6 G/DL % 31.8-35.4 red blood cell distribution width 13.3 % 11 .6-14.8 platelet count 210 10^3/MM^3 10*3/mm3 142-424 Lab Report: Comp. Metabolic Panel, Lipid Panel, Thyroid Stimulating Horm ... - Chemistry sodium, serum 141 mmol/L 265-433 3986/01/26 carbon dioxide, venous blood 30.0 mmol/L 21.0-32 .0 potassium, serum 4.0 mmol/L 3.5-5.2 chloride, serum 105 mmol/L 98-107 blood glucose 85 mg/dL 65-110 urea nitrogen, blood 9 mg/dL 7-18 creatinine, serum 0.66 mg/dL 0.55-1.30 alanine aminotransferase (SGPT), serum 31 U/L 12-78 aspartate aminotransferase (SGOT), serum 21 U/L 15-37 calcium, serum 8.2 mg/dL 8.5-10.1 bilirubin, serum, total 1.10 mg/dL 0.00-1.00 cholesterol, serum 178 mg/dL 323-672 3524/01/26 triglyceride, serum, fasting 149 mg/dL 30-200 HDL cholesterol, serum 32 mg/dL 32-96 LDL cholesterol, serum 116 mg/dL 0-130 TSH 2.99 m[iU]/mL 0.36-3.74 protein, total urine random Negative mg/dL Negative RBC, urine, dipstick Negative Negative Lab Report: Comp. Metabolic Panel, Lipid Panel, Thyroid Stimulating Horm ... - Urinalysis urobilinogen, urine, semiquantitative (dipstick) 0.2 Normal leukocyte esterase, urine, by dipstick Negative Negative nitrite, urine, semiquantitative Negative Neg ative glucose, urine, semiquantitative Negative Neg ative ketones, urine, by test strip Negative Negati ve bilirubin, urine Negative Negative urine color Yellow Colorless;Lightyellow;St raw;Yellow appearance, urine Clear Clear specific gravity, urine 1.025 1.000-1.030 pH, urine, semiquantitative 5.5 5.0-8.5 Encounters Code Encounter Date Provider Facility CPT-48714 Level 3 Est. Patient 11:28:51 COSTUME SEAMSTRESS Efren almendarez APRN [facility] CPT-19493 Level 4 Est. Patient 13:55:46 COSTUME SEAMSTRESS Checo Conklin MD [facility] CPT-68765 Level 4 Est. Patient 17:10:53 CDT Checo Conklin MD [facility] CPT-12296 Level 3 Est. Patient 15:56:22 CDT Checo Conklin MD [facility] CPT-30240 Level 3 Est. Patient 15:29:07 CDT Checo Conklin MD [facility] CPT-56528 Level 3 Est. Patient 14:38:41 CDT Checo Conklin MD [facility] CPT-53818 Level 3 Est. Patient 15:22:03 CO[employer]UME SEAMSTRESS Thomas reynolds DO [facility] CPT-37038 Level 3 Est. Patient 13:34:17 COSTUME SEAMSTRESS Checo Conklin MD [facility] CPT-94112 Level 3 Est. Patient 12:29:32 CDT Dangelo arroyo MD [facility] CPT-32248 Level 3 Est. Patient 16:53:02 CDT Checo Conklin MD [facility] CPT-40595 Level 3 Est. Patient 16:37:13 CDT Checo Conklin MD [facility] CPT-49109 Level 3 Est. Patient 16:16:59 CDT Paul Hamlin MD [facility] CPT-72566 Level 3 Est. Patient 14:20:13 CDT Dangelo arroyo MD [facility] CPT-65784 Level 4 Est. Patient 11:29:33 CDT Checo Conklin MD [facility] CPT-00620 Level 3 Est. Patient 17:08:31 CDT Checo Conklin MD [facility] CPT-24915 Level 3 Est. Patient 16:50:42 COSTUME SEAMSTRESS Checo Conklin MD [facility] CPT-80966 Level 4 Est. Patient 09:26:08 COSTUME SEAMSTRESS Checo Conklin MD [facility] CPT-85337 Level 3 Est. Patient 11:37:10 CDT Checo Conklin MD [facility] CPT-77112 Level 4 Est. Patient 14:07:38 CDT Checo Conklin MD [facility] CPT-56426 Level 3 Est. Patient 09:54:41 CDT Checo Conklin MD [facility] CPT-02710 Level 3 Est. Patient 11:10:54 CDT Paul Hamlin MD [facility] CPT-73658 Level 3 Est. Patient 14:16:56 COSTUME SEAMSTRESS Checo Conklin MD [facility] CPT-54918 Level 3 Est. Patient 11:04:11 COSTUME SEAMSTRESS Checo Conklin MD [facility] CPT-57451 Level 3 Est. Patient 17:09:26 CDT Dangelo arroyo MD [facility] CPT-38750 Level 3 Est. Patient 16:54:37 CDT Checo Conklin MD [facility] Procedures Code Procedure Name Date Entry Date Standard Desc ription CPT-OV Office Visit 11:31:28 CDT CPT-27554 Tubersol 09:39:29 CDT CPT-J2550 Phenergan 25 mg (Promethazine) 13:59:02 COSTUME SEAMSTRESS CPT-J1885 Toradol 60 mg (Ketorolac) 13:59:02 COSTUME SEAMSTRESS 2012
--- OUTSIDE RECORDS SUMMARY | 2019-09-29 01:23 | XMS REPORT | Clinical Summary ---
Author Author Admin, Bethany Gonzales Organization [employer] Address Unknown Phone Unavailable Allergies, Adverse Reactions, [...] Unspecified otitis media Onychomycosis, toenails 110.1 Resolved oJe Conklin MD Dermatophytosis of nail Hypoglycemia, unspecified [...] mention of infection Carbuncle/furuncle NOS 680.9 Resolved Lenoar Conklin MD Carbuncle and furuncle of unspecified [...] Vaginitis and vulvovaginitis, unspecified Pharyngitis 462 Active Jillina Frazell STEEL ANALYST Acute pharyngitis Cough 786.2 Active Jillina Frazell STEEL ANALYST Cough Pedal edema 782.3 Active Jillina Frazell STEEL ANALYST 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 Tanner Carrillo MD Neoplasm of uncertain behavior of skin Abdominal pain, generalized 789.07 Active Jillina Frazell STEEL ANALYST Abdominal pain, generalized Urinary frequency 788.41 Active Jillina Frazell STEEL ANALYST Urinary frequency DIABETES ICD-V18.0 Inactive Checo Conklin MD 201 08/27/26 CONCUSSION ICD-850.9 Inactive Checo Joshua FH BREAST CANCER ICD-V16.3 Inactive Checo Joshua HEADACHE, TENSION ICD-307.81 Inactive Checo Conklin MD UTI ICD-599.0 Inactive Checo Conklin MD 2013 OTITIS MEDIA-RIGHT ICD-382.9 Inactive Checo Conklin MD ABDOMINAL PAIN RIGHT LOWER QUADRANT ICD-789.03 Inactive Checo Conklin MD Hypoglycemia, unspecified ICD-251.2 Inactive Checo Conklin MD Insomnia ICD-780.52 Inactive Checo Joshua Breast mass, right ICD-611.72 Inactive Checo Conklin MD PHARYNGITIS ICD-462 Inactive Checo Conklin MD Sinusitis ICD-461.9 Inactive Checo Conklin MD Onychomycosis, toenails ICD-110.1 Inactive Aracelis Conklin MD Carbuncle/furuncle NOS ICD-680.9 Inactive Hilaria Conklin MD Mastalgia ICD-611.71 Inactive Checo Joshua Insect bite ICD-919.4 Inactive Checo Conklin MD Knee pain, right ICD-719.46 Inactive Checo gallagher MD Vertigo ICD-780.4 Ozzy Conklin MD 2014 Abscess, skin ICD-682.9 Inactive Checo richey MD BRONCHITIS, ACUTE ICD-466.0 Inactive Checo gallagher MD Abdominal pain ICD-789.00 Inactive Checo ngo MD Bacterial vaginosis ICD-616.10 Inactive Lenora Conklin MD Medication List Medication Instructions Start Date Stop Date Generic Name NDC Status Provider Patient Instruction BACTRIM DS 800-160 MG TAB 1 tab by mouth twice daily 2 TRIMETHOPRIM-SULFAMETHOXAZOLE 96054572447 No Longer Active Tanner Carrillo MD Active DIFLUCAN 150 MG TAB 1 tablet by mouth qod FLUCO NAZOLE 58652685955 No Longer Active Efren Medel APRN Active CLARITIN 10 MG TAB 1 tablet by mouth daily as needed for allergies LORATADINE 98754869683 Active Jillina Frazell STEEL ANALYST Active AZITHROMYCIN 250 MG TABS 2 po qd x 1 day, then 1 po qd x 4 days AZITHROMYCIN 66130128864 No Longer Active Jillina Lizy MAX Active FLAGYL 500 MG TAB 1 tablet by mouth bid METRONI DAZOLE 78825850150 No Longer Active Checo Conklin MD Active FOCALIN XR 10 MG ORAL [id number] 1 po q a.m. DEX METHYLPHENIDATE HCL 54795515572 Active Checo Conklin MD Active MAGNESIUM CITRATE 1.745 GM/30ML ORAL SOLN 150ml po BID PRN C onstipation MAGNESIUM CITRATE 63838837110 No Longer Active Checo Conklin MD Active BACTROBAN 2 % CREAM Apply to affected area BID for up to 10 days MUPIROCIN CALCIUM 01691102693 No Longer Active Checo Conklin MD Active HYDROCODONE-ACETAMINOPHEN 5-325 MG TABS 1 tab by mouth every 6 hours as needed HYDROCODONE-ACETAMINOPHEN 18638367740 No Longer Activ e Cehco oCnklin MD Active IBUPROFEN 800 MG TABS 1 tab every 8 hours with food 31/03/21 IBUPROFEN 43112874142 No Longer Active Checo Conklin MD Activ e DIFLUCAN 150 MG TAB 1 tablet by mouth if needed, hold until symptoms start FLUCONAZOLE 70920781496 No Longer Active Checo Ortiz MD Active BACTRIM DS 800-160 MG TAB 1 tab by mouth twice daily 2 TRIMETHOPRIM-SULFAMETHOXAZOLE 94659347043 No Longer Active Corry leong LPN Active MIRALAX PACK 1 po qd PRN Constipation POLYETHYL JOEL GLYCOL 3350 25256719543 Active Checo Conklin MD Active HYDROCODONE-ACETAMINOPHEN 5-325 MG TABS 0.5 to 1 tab b y mouth every 6 hours as needed HYDROCODONE-ACETAMINOPHEN 50044391721 No Longer Active Checo Conklin MD Active ONDANSETRON [address] one tablet on tongue and allow to dissolve every 6 hours as needed for vomitting ONDANSETRO N 98303627029 No Longer Active Checo Conklin MD Active COMPRO 25 MG RECTAL SUPP insert or apply one supposit ory rectally as directed every 12 hours as needed for nausea PROCHLORPERA ZINE 81624003269 No Longer Active Checo Conklin MD Active SUMATRIPTAN SUCCINATE 100 MG ORAL TABS Take one PRN for migrane SUMATRIPTAN SUCCINATE 22148938130 No Longer Active Checo Conklin MD Active TRAVEL SICKNESS 25 MG ORAL CHEW chew and swallow one t ablet every 6 hours as needed MECLIZINE HCL 16100470172 No Longer Active Joe Conklin MD Active BUPROPION HCL ER (SR) 100 MG ORAL [id number] take one t ablet by mouth one time daily for one week then take 1 two times daily BUPROPION HCL 60082713275 No Longer Active Checo Conklin MD Activ e TERBINAFINE HCL 250 MG ORAL TABS take one table PO one time abran y TERBINAFINE HCL 62045703432 No Longer Active Checo Conklin MD Active METOCLOPRAMIDE HCL 10 MG ORAL TABS take one PO tid PRN nausea 20 29/12/14 METOCLOPRAMIDE HCL 98233859366 No Longer Active Checo Conklin MD Active DICLOFENAC SODIUM 75 MG TBEC 1 tablet by mouth twice daily P RN Knee pain DICLOFENAC SODIUM 38565976844 No Longer Active Checo Conklin MD Active LAMISIL 250 MG TAB 1 po qd TERBINAFINE HCL 548 15705609 No Longer Active Cheoc Conklin MD Active REGLAN 10 MG TAB 1 po TID PRN Nausea METOCLOPRA MIDE HCL 03979153426 No Longer Active Checo Conklin MD Active CELEXA 20 MG TABS 1 tablet by mouth daily CITALOPRAM HYDROBROMIDE 72337402834 No Longer Active Checo Conklin MD Activ e AZITHROMYCIN 250 MG TABS 2 po qd x 1 day, then 1 po qd x 4 days AZITHROMYCIN 29587640025 No Longer Active Checo Conklin MD Active HYDROCODONE-ACETAMINOPHEN 5-325 MG TABS 1 po q 6hr PRN Pain 2013 HYDROCODONE-ACETAMINOPHEN 59802561281 No Longer Active Lenora Conklin MD Active PHENAZOPYRIDINE HCL 200 MG TABS take 1 tab po TID for bladder pa in PHENAZOPYRIDINE HCL 29043991906 No Longer Active Checo Joshua Active CIPRO 500 MG TAB 1 tablet by mouth twice daily CIPROFLOXACIN HCL 61509997695 No Longer Active Dangelo Rangel MD Active HYDROCODONE-ACETAMINOPHEN 5-325 MG TABS 1/2 to 1 po q 4 hour s prn cough HYDROCODONE-ACETAMINOPHEN 45651231824 No Longer Activ e Dangelo Rangel MD Active BACTRIM DS 800-160 MG TABS 1 po BID x 7 days 0 SULFAMETHOXAZOLE-TRIMETHOPRIM 91392408158 No Longer Active Checo Conklin MD Active PREDNISONE 20 MG TAB 2 tabs daily for 3 days, 1 t ab daily for 3 days, 1/2 tab daily for 2 days PREDNISONE 10433813271 No Longer Active Checo Conklin MD Active TRIAMCINOLONE ACETONIDE 0.1 % OINT Apply to affected a reas TID for up to 2 weeks TRIAMCINOLONE ACETONIDE 38736758230 No Longer A ctive Checo Conklin MD Active CEFDINIR 300 MG CAPS by mouth twice a day CEFDI JAZZY 40968214111 No Longer Active Dangelo Rangel MD Active BUPROPION HCL (SMOKING DETER) 150 MG [id number] 1 a day for 1 week then 1 twice a day BUPROPION HCL (SMOKING DETER) 91594639715 No Lo nger Active Checo Conklin MD Active SIMVASTATIN 20 MG TABS 1 po qd SIMVASTATIN 2506349707 5 Active Checo Conklin MD Active CHANTIX STARTING MONTH KARTHIK 0.5 MG X 11 & 1 MG X 42 TAB S 0.5mg daily for 3 days, then 0.5mg BID for 4 days, then 1mg BID VARENICLINE TARTRATE 14564638789 No Longer Active Checo Conklin MD Activ e XANAX 0.5 MG TABS 1 po BID PRN anxiety ALPRAZOLAM 67917066780 Active Checo Conklin MD Active CONCERTA 18 MG CR-TABS 1 po q a.m. METHYLPHENID ATE HCL 83931216665 No Longer Active Checo Conklin MD Active AMBIEN 5 MG TAB 1 po qHS PRN Insomnia ZOLPIDEM TARTRATE 04574692475 Active Checo Conklin MD Active TRAZODONE HCL 100 MG TAB 0.5 to 1 po qHS PRN Insomnia TRAZODONE HCL 14224686039 No Longer Active Checo Conklin MD Acti ve FIORICET 325-50-40 MG TAB 1 tablet by mouth four times daily as needed [id number] 15161426859 No Longer Active Checo Conklin MD Active PHENERGAN CREAM* 25mg applied to wrist q6hr PRN Nausea PHENERGAN CREAM* No Longer Active Checo Conklin MD A ctive FLONASE 50 MCG/ACT SUSP 1 spray each nostril am and hs FLUTICASONE PROPIONATE 00082165539 No Longer Active Checo Simms e ANTIPYRINE-BENZOCAINE 5.4-1.4 % SOLN 1-2 drops in affected ear BENZOCAINE-ANTIPYRINE 80863252446 No Longer Active Checo Conklin MD Active CEFDINIR 300 MG CAPS 1 po bid CEFDINIR 63625580 120 No Longer Active Checo Conklin MD Active PREDNISONE 20 MG TAB 2 tabs daily for 3 days, 1 t ab daily for 3 days, 1/2 tab daily for 2 days PREDNISONE 72369260340 No Longer Active Aracelis Conklin MD Active AZITHROMYCIN 250 MG TABS 2 po qd x 1 day, then 1 po qd x 4 days AZITHROMYCIN 09014529878 No Longer Active Checo Conklin MD Active PREDNISONE 20 MG TAB 2 tabs daily for 3 days, 1 t ab daily for 3 days, 1/2 tab daily for 2 days PREDNISONE 82448036266 No Longer Active Checo Conklin MD Active ZITHROMAX Z-KARTHIK 250 MG TABS 2 today, then 1 daily for 4 days 201 09/18/28 AZITHROMYCIN 40204849478 No Longer Active Paul Hamlin MD Active FOCALIN XR 10 MG [id number] 1 po q a.m. D EXMETHYLPHENIDATE HCL 23204903719 No Longer Active Paul Hamlin MD Activ e PERCOCET 10-325 MG TABS 1 tablet every 6 hours as needed for pain OXYCODONE-ACETAMINOPHEN 33304138765 No Longer Active Paul Hamlin MD Active LORTAB 5 5-500 MG TABS 1/2 to 1 tablet by mouth flaquito ry 4 hours as needed for pain HYDROCODONE-ACETAMINOPHEN 93294815116 No Longer Active Checo Conklin MD Active FOCALIN XR 15 MG [id number] 1 po q a.m. D EXMETHYLPHENIDATE HCL 72790411070 No Longer Active Checo Conklin MD Activ e ZOFRAN ODT 4 MG TBDP 1 po q6hr PRN Nausea ONDAN SETRON 15938717401 No Longer Active Checo Conklin MD Active PERCOCET 5-325 MG TABS 1 tablet by mouth every 6 hours as needed OXYCODONE-ACETAMINOPHEN 04323664625 No Longer Active Checo Conklin MD Active PYRIDIUM 200 MG TABS take 1 tab po TID prn urinary pain. 0 PHENAZOPYRIDINE HCL 38151087366 No Longer Active Checo Conklin MD Active FLUCONAZOLE 150 MG TABS take 1 tab po qday once 04/06 FLUCONAZOLE 45898859665 No Longer Active Dangelo Rangel MD Acti ve CIPRO 500 MG TAB 1 tablet by mouth twice daily CIPROFLOXACIN HCL 13700284396 No Longer Active Dangelo Rangel MD Active PYRIDIUM 200 MG TABS take 1 tab po TID prn urinary pain. 0 PYRIDIUM 200 MG TABS 2546010 PHENAZOPYRIDINE HCL Inactive PERCOCET 5-325 MG TABS 1 tablet by mouth every 6 hours as needed PERCOCET 5-325 MG TABS 5922449 OXYCODONE-ACETAMINOPHEN I nactive ZOFRAN ODT 4 MG TBDP 1 po q6hr PRN Nausea ZOFRAN ODT 4 MG TBDP 950129 ONDANSETRON Inactive FOCALIN XR 15 MG [id number] 1 po q a.m. F OCALIN XR 15 MG [id number] DEXMETHYLPHENIDATE HCL Inactive LORTAB 5 5-500 MG TABS 1/2 to 1 tablet by mouth flaquito ry 4 hours as needed for pain LORTAB 5 5-500 MG TABS HYDROCODONE-A CETAMINOPHEN Inactive PERCOCET 10-325 MG TABS 1 tablet every 6 hours as needed for pain PERCOCET 10-325 MG TABS 3600278 OXYCODONE-ACETAMINOPHEN Inactive FOCALIN XR 10 MG [id number] 1 po q a.m. F OCALIN XR 10 MG [id number] DEXMETHYLPHENIDATE HCL Inactive CEFDINIR 300 MG CAPS 1 po bid CEFDINIR 300 MG CAPS 20 0346 CEFDINIR Inactive ANTIPYRINE-BENZOCAINE 5.4-1.4 % SOLN 1-2 drops in affected ear ANTIPYRINE-BENZOCAINE 5.4-1.4 % SOLN 715165 BENZOCAINE-ANTIPYRINE I nactive FLONASE 50 MCG/ACT SUSP [...] PRN Insomnia TRAZODONE HCL 100 MG TAB 431327 TRAZODONE HCL Inactive CONCERTA 18 MG CR-TABS [...] s prn cough HYDROCODONE-ACETAMINOPHEN 5-325 MG TABS 891457 HYDROCODONE-ACETAMINOPHEN Inactive PHENAZOPYRIDINE HCL 200 MG TABS take 1 tab po TID for bladder pa in PHENAZOPYRIDINE HCL 200 MG TABS 3923540 PHENAZOPYRIDINE HCL Inactive HYDROCODONE-ACETAMINOPHEN 5-325 MG TABS 1 po q 6hr PRN Pain 2013 HYDROCODONE-ACETAMINOPHEN 5-325 MG TABS 885187 HYDROCODONE-ACETAMINOPHEN Inactive CELEXA 20 MG TABS 1 tablet by mouth daily CELEXA 20 MG TABS 142460 CITALOPRAM HYDROBROMIDE Inactive REGLAN 10 MG TAB 1 po TID PRN Nausea REGLAN 10 MG TAB 108163 METOCLOPRAMIDE HCL Inactive LAMISIL 250 MG TAB 1 po qd LAMISIL 250 MG TAB 024079 TERBINAFINE HCL Inactive DICLOFENAC SODIUM 75 MG TBEC 1 tablet by mouth twice daily P RN Knee pain DICLOFENAC SODIUM 75 MG TBEC 431807 DICLOFENAC S ODIUM Inactive METOCLOPRAMIDE HCL 10 MG ORAL TABS take one PO tid PRN nausea 20 29/12/14 METOCLOPRAMIDE HCL 10 MG ORAL TABS 744466 METOCLOPRAMID E HCL Inactive TERBINAFINE HCL 250 MG ORAL TABS take one table PO one time abran y TERBINAFINE HCL 250 MG ORAL TABS 426027 TERBINAFINE HCL Inactive BUPROPION HCL ER (SR) 100 MG ORAL [id number] take one t ablet by mouth one time daily for one week then take 1 two times daily BUPROPION HCL ER (SR) 100 MG ORAL [id number] BUPROPION HCL Inacti ve TRAVEL SICKNESS 25 MG ORAL CHEW chew and swallow one t ablet every 6 hours as needed TRAVEL SICKNESS 25 MG ORAL CHEW 057300 MECLIZINE HCL Inactive SUMATRIPTAN SUCCINATE 100 MG ORAL TABS Take one PRN for migrane SUMATRIPTAN SUCCINATE 100 MG ORAL TABS 560863 SUMATRIPT AN SUCCINATE Inactive COMPRO 25 MG RECTAL SUPP insert or apply one supposit ory rectally as directed every 12 hours as needed for nausea COMP RO 25 MG RECTAL SUPP 721837 PROCHLORPERAZINE Inactive ONDANSETRON [address] one tablet on tongue and allow to dissolve every 6 hours as needed for vomitting ON DANSETRON 8 MG ORAL TBDP 895638 ONDANSETRON Inactive HYDROCODONE-ACETAMINOPHEN 5-325 MG TABS 0.5 to 1 tab b y mouth every 6 hours as needed HYDROCODONE-ACETAMINOPHEN 5-325 MG TABS 8 73621 HYDROCODONE-ACETAMINOPHEN Inactive BACTRIM DS 800-160 MG TAB 1 tab by mouth twice daily 2 BACTRIM DS 800-160 MG TAB 19820918 TRIMETHOPRIM-SULFAMETHOXAZOLE Inac tive DIFLUCAN 150 MG TAB 1 tablet by mouth if needed, hold until symptoms start DIFLUCAN 150 MG TAB 19760325 FLUCONAZOLE Inactive IBUPROFEN 800 MG TABS 1 tab every 8 hours with food 20 31/03/21 IBUPROFEN 800 MG TABS 559860 IBUPROFEN Inactive HYDROCODONE-ACETAMINOPHEN 5-325 MG TABS 1 tab by mouth every 6 hours as needed HYDROCODONE-ACETAMINOPHEN 5-325 MG TABS 075908 HYDROCODONE-ACETAMINOPHEN Inactive BACTROBAN 2 % CREAM Apply to affected area BID for up to 10 days BACTROBAN 2 % CREAM 083721 MUPIROCIN CALCIUM Inactive MAGNESIUM CITRATE 1.745 GM/30ML ORAL SOLN 150ml po BID PRN C onstipation MAGNESIUM CITRATE 1.745 GM/30ML ORAL SOLN 972902 0 MAGNESIUM CITRATE Inactive DIFLUCAN 150 MG TAB 1 tablet by mouth qod DIFLUCAN 150 MG TAB 993136 FLUCONAZOLE Inactive BACTRIM DS 800-160 MG TAB 1 tab by mouth twice daily 2 BACTRIM DS 800-160 MG TAB 479451 TRIMETHOPRIM-SULFAMETHOXAZOLE Inac tive CIPRO 500 MG TAB 1 tablet by mouth twice daily CIPRO 500 MG TAB 670932 CIPROFLOXACIN HCL Inactive FLUCONAZOLE 150 MG TABS take 1 tab po qday once 04/06 FLUCONAZOLE 150 MG TABS 19760325 FLUCONAZOLE Inactive ZITHROMAX Z-KARTHIK 250 MG TABS 2 today, then 1 daily for 4 days 201 09/18/28 ZITHROMAX Z-KARTHIK 250 MG TABS 4982892 AZITHROMYCIN Inac tive PREDNISONE 20 MG TAB 2 tabs daily for 3 days, 1 t ab daily for 3 days, 1/2 tab daily for 2 days PREDNISONE 20 MG TAB 308814 PREDNISON E Inactive AZITHROMYCIN 250 MG TABS 2 po qd x 1 day, then 1 po qd x 4 days AZITHROMYCIN 250 MG TABS 8172198 AZITHROMYCIN Inactiv e PREDNISONE 20 MG TAB 2 tabs daily for 3 days, 1 t ab daily for 3 days, 1/2 tab daily for 2 days PREDNISONE 20 MG TAB 272147 PREDNISON E Inactive CEFDINIR 300 MG CAPS by mouth twice a day CEFDINIR 300 MG CAPS 766768 CEFDINIR Inactive TRIAMCINOLONE ACETONIDE 0.1 % OINT Apply to affected a reas TID for up to 2 weeks TRIAMCINOLONE ACETONIDE 0.1 % OINT 574620 6 TRIAMCINOLONE ACETONIDE Inactive PREDNISONE 20 MG TAB 2 tabs daily for 3 days, 1 t ab daily for 3 days, 1/2 tab daily for 2 days PREDNISONE 20 MG TAB 225439 PREDNISON E Inactive BACTRIM DS 800-160 MG TABS 1 po BID x 7 days 0 BACTRIM DS 800-160 MG TABS 871696 SULFAMETHOXAZOLE-TRIMETHOPRIM Inactive CIPRO 500 MG TAB 1 tablet by mouth twice daily CIPRO 500 MG TAB 155322 CIPROFLOXACIN HCL Inactive AZITHROMYCIN 250 MG TABS 2 po qd x 1 day, then 1 po qd x 4 days AZITHROMYCIN 250 MG TABS 8700325 AZITHROMYCIN Inactiv e FLAGYL 500 MG TAB 1 tablet by mouth bid FLAGYL 500 MG TAB 629257 METRONIDAZOLE Inactive AZITHROMYCIN 250 MG TABS 2 po qd x 1 day, then 1 po qd x 4 days AZITHROMYCIN 250 MG TABS 1177186 AZITHROMYCIN Inactiv e Immunizations Vaccine Administration Date Value Standard Michael cription TB-PPD (tuberculin purified protein derivative), intra dermal administration Tubersol Vital Signs Date Name Value Unit Range Description blood pressure, diastolic - 8462-4 73 mm[Hg] [...] - 3141-9 130 [lb_av] Weigh t Measured blood pressure, diastolic - 8462-4 70 mm[Hg] [...] - 3141-9 126.5 [lb_av] Weigh t Measured Diagnostic Results Date [...] count 210 10^3/MM^3 10*3/mm3 142-424 Lab Report: CBC W/DIFF - Hematology leukocyte [...] Report: CBC W/DIFF, Comp. Metabolic Panel, [place] [facility] [place] Chemistry sodium, serum 139 mmol/L 007-007 3144/10/21 carbon dioxide, venous blood 33.5 mmol/L 21.0-32 [...] Report: CBC W/DIFF, Comp. Metabolic Panel, Qual [facility] [place] Hematology leukocyte count, blood 7.9 10^3/MM^3 [...] count 248 10^3/MM^3 10*3/mm3 142-424 Lab Report: Chlamydia/GC [facility]TIM[facility]/20003 - Lab chlamydia DNA probe NOT DETECTED NOT DETECTED Lab Report: Chlamydia/GC [facility]/31326 - Microbiology Neisseria gonorrhoeae DNA probe NOT DETECTED NO T DETECTED Lab Report: Comp. Metabolic Panel, Lipid Panel, Thyroid Stimulating Horm ... - Chemistry protein, total urine random Negative mg/dL Negative RBC, urine, dipstick Negative Negative sodium, serum 141 mmol/L 092-485 5839/01/26 carbon dioxide, venous blood 30.0 mmol/L 21.0-32 .0 potassium, serum 4.0 mmol/L 3.5-5.2 chloride, serum 105 mmol/L 98-107 blood glucose 85 mg/dL 65-110 urea nitrogen, blood 9 mg/dL 7-18 creatinine, serum 0.66 mg/dL 0.55-1.30 alanine aminotransferase (SGPT), serum 31 U/L 12-78 aspartate aminotransferase (SGOT), serum 21 U/L 15-37 calcium, serum 8.2 mg/dL 8.5-10.1 bilirubin, serum, total 1.10 mg/dL 0.00-1.00 cholesterol, serum 178 mg/dL 920-967 1816/01/26 triglyceride, serum, fasting 149 mg/dL 30-200 HDL cholesterol, serum 32 mg/dL 32-96 LDL cholesterol, serum 116 mg/dL 0-130 TSH 2.99 m[iU]/mL 0.36-3.74 Lab Report: Comp. Metabolic Panel, Lipid Panel, Thyroid Stimulating Horm ... - Urinalysis urine color Yellow Colorless;Lightyellow;St raw;Yellow appearance, urine Clear Clear specific gravity, urine 1.025 1.000-1.030 pH, urine, semiquantitative 5.5 5.0-8.5 urobilinogen, urine, semiquantitative (dipstick) 0.2 Normal leukocyte esterase, urine, by dipstick Negative Negative nitrite, urine, semiquantitative Negative Neg ative glucose, urine, semiquantitative Negative Neg ative ketones, urine, by test strip Negative Negati ve bilirubin, urine Negative Negative Lab Report: Comp. Metabolic Panel, Thyro id Stimulating Hormone (L), Eryt ... - Chemistry sodium, serum 137 mmol/L 102-530 1179/05/27 carbon dioxide, venous blood 29.1 mmol/L 21.0-32 [...] 5.0-8.5 Encounters Code Encounter Date Provider Facility CPT-72249 Level 3 Est. Patient 09:11:49 CDT Efren almendarez APRN [facility] CPT-30594 Level 2 Est. Patient 19:53:27 CDT Tanner hill MD [facility] CPT-33854 Level 3 Est. Patient 09:15:34 CDT Efren Nicolas erickson [facility] CPT-73314 Level 3 Est. Patient 11:28:51 MICROWAVE ENGINEER Efren almendarez [facility] CPT-32671 Level 4 Est. Patient 13:55:46 MICROWAVE ENGINEER Checo Conklin MD [facility] CPT-87011 Level 4 Est. Patient 17:10:53 CDT Checo Conklin MD [facility] CPT-24363 Level 3 Est. Patient 15:56:22 CDT Checo Conklin MD [facility] CPT-92560 Level 3 Est. Patient 15:29:07 CDT Checo Conklin MD [facility] CPT-95274 Level 3 Est. Patient 14:38:41 CDT Checo Conklin MD [facility] CPT-44591 Level 3 Est. Patient 15:22:03 MICROWAVE ENGINEER Thomas reynolds DO [facility] CPT-31295 Level 3 Est. Patient 13:34:17 MICROWAVE ENGINEER Checo Conklin MD [facility] CPT-53092 Level 3 Est. Patient 12:29:32 CDT Dangelo arroyo MD [facility]-42307 Level 3 Est. Patient 16:53:02 CDT Checo Conklin MD [facility] CPT-24369 Level 3 Est. Patient 16:37:13 CDT Checo Conklin MD [facility] CPT-81881 Level 3 Est. Patient 16:16:59 CDT Paul Hamlin MD [facility]-98015 Level 3 Est. Patient 14:20:13 CDT Dangelo arroyo MD [facility] CPT-97261 Level 4 Est. Patient 11:29:33 CDT Checo Conklin MD [facility] CPT-36850 Level 3 Est. Patient 17:08:31 CDT Checo Conklin MD [facility] CPT-08364 Level 3 Est. Patient 16:50:42 MICROWAVE ENGINEER Checo Conklin MD [facility] CPT-56625 Level 4 Est. Patient 09:26:08 MICROWAVE ENGINEER Checo Conklin MD [facility] CPT-12161 Level 3 Est. Patient 11:37:10 CDT Checo Conklin MD [facility] CPT-00275 Level 4 Est. Patient 14:07:38 CDT Checo Conklin MD [facility] CPT-50968 Level 3 Est. Patient 09:54:41 CDT Checo Conklin MD [facility] CPT-32062 Level 3 Est. Patient 11:10:54 CDT Paul Hamlin MD [facility] CPT-18475 Level 3 Est. Patient 14:16:56 MICROWAVE ENGINEER Checo Conklin MD [facility] CPT-30235 Level 3 Est. Patient 11:04:11 MICROWAVE ENGINEER Checo Conklin MD [facility] CPT-90724 Level 3 Est. Patient 17:09:26 CDT Dangelo arroyo MD [facility] CPT-85604 Level 3 Est. Patient 16:54:37 CDT Checo Conklin MD [facility] Procedures Code Procedure Name Date Entry Date Standard Desc ription CPT-38459 UA w micro - LAB USE ONLY 17:06:46 CDT 2015 CPT-54378 [facility] Qual - LAB USE ONLY 17:06:46 CDT 05/06 CPT-73840 CMP - LAB USE ONLY 17:06:46 CDT CPT-49758 CBC with Diff - LAB USE ONLY 17:06:45 CDT 2 CPT-17138 Venipuncture Draw Fee 17:06:45 CDT CPT-LR Lesion Removal 19:53:27 CDT CPT-OV Office Visit 11:31:28 CDT CPT-83062 Tubersol 09:39:29 CDT CPT-J2550 Phenergan 25 mg (Promethazine) 13:59:02 MICROWAVE ENGINEER CPT-J1885 Toradol 60 mg (Ketorolac) 13:59:02 MICROWAVE ENGINEER 2012
--- OUTSIDE RECORDS SUMMARY | 2019-09-29 01:24 | XMS REPORT | Clinical Summary ---
Author Author Admin, [facility] Address Unknown Phone Unavailable Allergies, Adverse [...] and vulvovaginitis, unspecified Pharyngitis 462 Resolved Checo oCnklin MD Acute pharyngitis Cough 786.2 Resolved Checo [...] MD Acute sinusitis, unspecified Repeated falls 781.99 Active Paul Hamlin MD Other symptoms involving nervous and musculoskeletal systems BREAST CANCER ICD-V16.3 Inactive Checo Joshua FH [...] Patient Instruction PAROXETINE HCL 20 MG ORAL TABLET 1.5 po qd PAR OXETINE HCL 26665126131 Active Checo Conklin MD Active FLUTICASONE PROPIONATE 50 MCG/ACT NASAL SUSPENSION 2 s prays/nostril qd PRN Congestion/Allergies FLUTICASONE PROPIONATE 4427711812 9 No Longer Active Checo Conklin MD Active AMOXICILLIN 500 MG ORAL CAPSULE 2 po BID x 10 days 201 01/15/27 AMOXICILLIN 74600665725 No Longer Active Checo Conklin MD Activ e MIRALAX ORAL POWDER 8.5 to 17g po qd PRN Constipation POLYETHYLENE GLYCOL 3350 15659502943 Active Checo Conklin MD Active CLARITIN 10 MG ORAL TABLET 1 tablet by mouth daily as needed for allergies LORATADINE 06951874413 No Longer Active Checo Ortiz MD Active BACTRIM DS 800-160 MG ORAL TABLET 1 tab by mouth twice daily 201 12/19/26 TRIMETHOPRIM-SULFAMETHOXAZOLE 36320055597 No Longer Active Ragini Carrillo MD Active DIFLUCAN 150 MG ORAL TABLET 1 tablet by mouth qod 2015 FLUCONAZOLE 64523271904 No Longer Active Efren Medel APRN Act mike AZITHROMYCIN 250 MG ORAL TABLET 2 po qd x 1 day, then 1 po q d x 4 days AZITHROMYCIN 77310901305 No Longer Active Efren flores CREDIT SUPPORT COUNSELOR Active FLAGYL 500 MG ORAL TABLET 1 tablet by mouth bid 04/13 METRONIDAZOLE 75735669812 No Longer Active Checo Conklin MD Acti ve FOCALIN XR 10 MG ORAL CAPSULE EXTENDED RELEASE 24 HOUR 1 po q a.m. DEXMETHYLPHENIDATE HCL 30183840939 Active Checo Conklin MD Active MAGNESIUM CITRATE 1.745 GM/30ML ORAL SOLUTION 150ml po BID P RN Constipation MAGNESIUM CITRATE 01866966914 No Longer Active Checo Conklin MD Active BACTROBAN 2 % EXTERNAL CREAM Apply to affected area BID for up to 10 days MUPIROCIN CALCIUM 26531024818 No Longer Active Checo Conklin MD Active HYDROCODONE-ACETAMINOPHEN 5-325 MG ORAL TABLET 1 tab b y mouth every 6 hours as needed HYDROCODONE-ACETAMINOPHEN 97390330701 No Longer Active Checo Conklin MD Active IBUPROFEN 800 MG ORAL TABLET 1 tab every 8 hours with food 03/20 IBUPROFEN 57441709823 No Longer Active Checo Conklin MD Active DIFLUCAN 150 MG ORAL TABLET 1 tablet by mouth if neede d, hold until symptoms start FLUCONAZOLE 56619542176 No Longer Active Checo Conklin MD Active BACTRIM DS 800-160 MG ORAL TABLET 1 tab by mouth twice daily 201 11/23/03 TRIMETHOPRIM-SULFAMETHOXAZOLE 68344650662 No Longer Active Bonnie Méndez LPN Active HYDROCODONE-ACETAMINOPHEN 5-325 MG ORAL TABLET 0.5 to 1 tab by mouth every 6 hours as needed HYDROCODONE-ACETAMINOPHEN 49246504237 No Longer Active Checo Conklin MD Active ONDANSETRON 8 MG ORAL TABLET DISINTEGRATING place one tablet on tongue and allow to dissolve every 6 hours as needed for vomitting ONDANSETRON 27379497949 No Longer Active Checo Conklin MD Activ e COMPRO 25 MG RECTAL SUPPOSITORY insert or apply one garza ppository rectally as directed every 12 hours as needed for nausea PROCHLORPERAZINE 17758562560 No Longer Active Checo Conklin MD A ctive SUMATRIPTAN SUCCINATE 100 MG ORAL TABLET Take one PRN for migran e SUMATRIPTAN SUCCINATE 37967018783 No Longer Active Checo Conklin MD Active TRAVEL SICKNESS 25 MG ORAL TABLET CHEWABLE chew and sw allow one tablet every 6 hours as needed MECLIZINE HCL 13934418670 No Longer A ctive Checo Conklin MD Active BUPROPION HCL ER (SR) 100 MG ORAL TABLET EXTENDED RELE ASE 12 HOUR take one tablet by mouth one time daily for one week then take 1 two times daily BUPROPION HCL 38064491797 No Longer Active Checo gallagher MD Active TERBINAFINE HCL 250 MG ORAL TABLET take one table PO one time da moises TERBINAFINE HCL 48670782719 No Longer Active Checo Conklin MD Active METOCLOPRAMIDE HCL 10 MG ORAL TABLET take one PO tid PRN nausea METOCLOPRAMIDE HCL 61014765664 No Longer Active Checo Conklin MD Active DICLOFENAC SODIUM 75 MG ORAL TABLET DELAYED RELEASE 1 tablet by mouth twice daily PRN Knee pain DICLOFENAC SODIUM 26177172741 No Longer Active Checo Conklin MD Active LAMISIL 250 MG ORAL TABLET 1 po qd TERBINAFI NE HCL 80724400504 No Longer Active Checo Conklin MD Active REGLAN 10 MG ORAL TABLET 1 po TID PRN Nausea 3 METOCLOPRAMIDE HCL 81983888866 No Longer Active Checo Conklin MD Active CELEXA 20 MG ORAL TABLET 1 tablet by mouth daily 09/26 CITALOPRAM HYDROBROMIDE 56150809415 No Longer Active Checo Conklin MD Active AZITHROMYCIN 250 MG ORAL TABLET 2 po qd x 1 day, then 1 po q d x 4 days AZITHROMYCIN 33019588539 No Longer Active Checo Ortiz MD Active HYDROCODONE-ACETAMINOPHEN 5-325 MG ORAL TABLET 1 po q 6hr PRN Pa in HYDROCODONE-ACETAMINOPHEN 87110328262 No Longer Active Lneora Conklin MD Active PHENAZOPYRIDINE HCL 200 MG ORAL TABLET take 1 tab po TID for bladder pain PHENAZOPYRIDINE HCL 46336782015 No Longer Active Joe Conklin MD Active CIPRO 500 MG ORAL TABLET 1 tablet by mouth twice daily CIPROFLOXACIN HCL 84232017869 No Longer Active Dangelo Rangel MD Active HYDROCODONE-ACETAMINOPHEN 5-325 MG ORAL TABLET 1/2 to 1 po q 4 hours prn cough HYDROCODONE-ACETAMINOPHEN 69098560740 No Longer Activ e Dangelo Rangel MD Active BACTRIM DS 800-160 MG ORAL TABLET 1 po BID x 7 days 29/04/10 SULFAMETHOXAZOLE-TRIMETHOPRIM 12261410000 No Longer Active Checo Conklin MD Active PREDNISONE 20 MG ORAL TABLET 2 tabs daily for 3 days, 1 tab daily for 3 days, 1/2 tab daily for 2 days PREDNISONE 01228539072 No Longer Active Checo Conklin MD Active TRIAMCINOLONE ACETONIDE 0.1 % EXTERNAL OINTMENT Apply to affected areas TID for up to 2 weeks TRIAMCINOLONE ACETONIDE 89211496608 No Longer Active Checo Conklin MD Active CEFDINIR 300 MG ORAL CAPSULE by mouth twice a day 2013 CEFDINIR 92914866436 No Longer Active Dangelo Rangel MD Acti ve BUPROPION HCL ER (SMOKING DET) 150 MG ORAL TABLET EXTE NDED RELEASE 12 HOUR 1 a day for 1 week then 1 twice a day BUPROPION HCL (SMOKING DETER) 71306498479 No Longer Active Checo Conklin MD Active SIMVASTATIN 20 MG ORAL TABLET 1 po qd SIMVASTAT IN 36338375182 Active Checo Conklin MD Active CHANTIX STARTING MONTH KARTHIK 0.5 MG X 11 & 1 MG X 42 ORA L TABLET 0.5mg daily for 3 days, then 0.5mg BID for 4 days, then 1mg BID VARENICLINE TARTRATE 10614494398 No Longer Active Checo Conklin MD Activ e XANAX 0.5 MG ORAL TABLET 1 po BID PRN anxiety A LPRAZOLAM 67823110207 Active Checo Conklin MD Active CONCERTA 18 MG ORAL TABLET EXTENDED RELEASE 1 po q a.m. METHYLPHENIDATE HCL 16770242525 No Longer Active Checo Conklin MD Active AMBIEN 5 MG ORAL TABLET 1 po qHS PRN Insomnia Z OLPIDEM TARTRATE 56653201246 Active Checo Conklin MD Active TRAZODONE HCL 100 MG ORAL TABLET 0.5 to 1 po qHS PRN Insomnia 20 30/07/08 TRAZODONE HCL 20522751805 No Longer Active Checo Conklin MD Active FIORICET 325-50-40 MG TAB 1 tablet by mouth four times daily as needed [id number] 96896714892 No Longer Active Checo Conklin MD Active PHENERGAN CREAM* 25mg applied to wrist q6hr PRN Nausea PHENERGAN CREAM* No Longer Active Checo Gonzales ctive FLONASE 50 MCG/ACT NASAL SUSPENSION 1 spray each nostril am and hs FLUTICASONE PROPIONATE 65572004461 No Longer Active Checo Conklin MD Active ANTIPYRINE-BENZOCAINE 5.4-1.4 % OTIC SOLUTION 1-2 drops in affec yohannes ear BENZOCAINE-ANTIPYRINE 47405315990 No Longer Active Checo Conklin MD Active CEFDINIR 300 MG ORAL CAPSULE 1 po bid CEFDINIR 41707751346 No Longer Active Checo Conklin MD Active PREDNISONE 20 MG ORAL TABLET 2 tabs daily for 3 days, 1 tab daily for 3 days, 1/2 tab daily for 2 days PREDNISONE 47976877792 No Longer Active Checo Conklin MD Active AZITHROMYCIN 250 MG ORAL TABLET 2 po qd x 1 day, then 1 po q d x 4 days AZITHROMYCIN 24541248718 No Longer Active Checo Ortiz MD Active PREDNISONE 20 MG ORAL TABLET 2 tabs daily for 3 days, 1 tab daily for 3 days, 1/2 tab daily for 2 days PREDNISONE 79984957769 No Longer Active Checo Conklin MD Active ZITHROMAX Z-KARTHIK 250 MG ORAL TABLET 2 today, then 1 daily for 4 d ays AZITHROMYCIN 46553708714 No Longer Active Paul Hamlin MD Active FOCALIN XR 10 MG ORAL CAPSULE EXTENDED RELEASE 24 HOUR 1 po q a. m. DEXMETHYLPHENIDATE HCL 16300371232 No Longer Active Paul Hamlin MD Active PERCOCET 10-325 MG ORAL TABLET 1 tablet every 6 hours as needed for pain OXYCODONE-ACETAMINOPHEN 23142555031 No Longer Active Paul Hamlin MD Active LORTAB 5-500 MG ORAL TABLET 1/2 to 1 tablet by mouth e very 4 hours as needed for pain HYDROCODONE-ACETAMINOPHEN 29686438369 No Longer Active Checo Conklin MD Active FOCALIN XR 15 MG ORAL CAPSULE EXTENDED RELEASE 24 HOUR 1 po q a. m. DEXMETHYLPHENIDATE HCL 17453272610 No Longer Active Checo Conklin MD Active ZOFRAN ODT 4 MG ORAL TABLET DISINTEGRATING 1 po q6hr PRN Nausea ONDANSETRON 77359401626 No Longer Active Checo Conklin MD Active PERCOCET 5-325 MG ORAL TABLET 1 tablet by mouth every 6 hour s as needed OXYCODONE-ACETAMINOPHEN 70426395287 No Longer Active Checo Conklin MD Active PYRIDIUM 200 MG ORAL TABLET take 1 tab po TID prn urinary pain. PHENAZOPYRIDINE HCL 84344472548 No Longer Active Checo Joshua Active FLUCONAZOLE 150 MG ORAL TABLET take 1 tab po qday once FLUCONAZOLE 66545016439 No Longer Active Dangelo Rangel MD Acti ve CIPRO 500 MG ORAL TABLET 1 tablet by mouth twice daily CIPROFLOXACIN HCL 88369043016 No Longer Active Dangelo Rangel MD Active PYRIDIUM 200 MG ORAL TABLET take 1 tab po TID prn urinary pain. PYRIDIUM 200 MG ORAL TABLET 1830999 PHENAZOPYRIDINE HCL Inactive PERCOCET 5-325 MG ORAL TABLET 1 tablet by mouth every 6 hour s as needed PERCOCET 5-325 MG ORAL TABLET 8533962 OXYCODONE-ACETAMINOPHEN Inactive ZOFRAN ODT 4 MG ORAL TABLET DISINTEGRATING 1 po q6hr PRN Nausea ZOFRAN ODT 4 MG ORAL TABLET DISINTEGRATING 116240 ONDAN SETRON Inactive FOCALIN XR 15 MG ORAL CAPSULE EXTENDED RELEASE 24 HOUR 1 po q a. m. FOCALIN XR 15 MG ORAL CAPSULE EXTENDED RELEASE 24 HOUR DEXMETHYLPHENIDATE HCL Inactive LORTAB 5-500 MG ORAL TABLET 1/2 to 1 tablet by mouth e very 4 hours as needed for pain LORTAB 5-500 MG ORAL TABLET 464700 HYDROCODONE-ACETAMINOPHEN Inactive PERCOCET 10-325 MG ORAL TABLET 1 tablet every 6 hours as needed for pain PERCOCET 10-325 MG ORAL TABLET 6555226 OXYCODONE-ACETAMI NOPHEN Inactive FOCALIN XR 10 MG ORAL CAPSULE EXTENDED RELEASE 24 HOUR 1 po q a. m. FOCALIN XR 10 MG ORAL CAPSULE EXTENDED RELEASE 24 HOUR DEXMETHYLPHENIDATE HCL Inactive CEFDINIR 300 MG ORAL CAPSULE 1 po bid CEFDINI R 300 MG ORAL CAPSULE 649499 CEFDINIR Inactive ANTIPYRINE-BENZOCAINE 5.4-1.4 % OTIC SOLUTION 1-2 drops in affec yohannes ear ANTIPYRINE-BENZOCAINE 5.4-1.4 % OTIC SOLUTION 638611 BENZOCAINE-ANTIPYRINE Inactive FLONASE 50 MCG/ACT NASAL SUSPENSION 1 spray each nostril am and hs FLONASE 50 MCG/ACT NASAL SUSPENSION 4829629 FLUTICASONE PROPIONATE I nactive PHENERGAN CREAM* 25mg applied to wrist q6hr PRN Nausea PHENERGAN CREAM* Inactive FIORICET 325-50-40 MG TAB 1 tablet by mouth four times daily as needed FIORICET 325-50-40 MG TAB ACETAMINOPHEN-C AFF-BUTALBITAL Inactive TRAZODONE HCL 100 MG ORAL TABLET 0.5 to 1 po qHS PRN Insomnia 20 30/07/08 TRAZODONE HCL 100 MG ORAL TABLET 600374 TRAZODONE HCL Inactive CONCERTA 18 MG ORAL [...] cough HYDROCODONE-ACETAMINOPHEN 5-325 MG ORAL TABLET 8 66370 HYDROCODONE-ACETAMINOPHEN Inactive PHENAZOPYRIDINE HCL 200 MG ORAL TABLET take 1 tab po TID for bladder pain PHENAZOPYRIDINE HCL 200 MG ORAL TABLET 8036499 PHENAZOPYRIDINE HCL Inactive HYDROCODONE-ACETAMINOPHEN 5-325 MG ORAL TABLET 1 po q 6hr PRN Pa in HYDROCODONE-ACETAMINOPHEN 5-325 MG ORAL TABLET 784687 HYDROCODONE-ACETAMINOPHEN Inactive CELEXA 20 MG ORAL TABLET 1 tablet by mouth daily 09/26 CELEXA 20 MG ORAL TABLET 384009 CITALOPRAM HYDROBROMIDE Inactive REGLAN 10 MG ORAL TABLET 1 po TID PRN Nausea 3 REGLAN 10 MG ORAL TABLET 630952 METOCLOPRAMIDE HCL Inactive LAMISIL 250 MG ORAL TABLET 1 po qd L AMISIL 250 MG ORAL TABLET 693549 TERBINAFINE HCL Inactive DICLOFENAC SODIUM 75 MG ORAL TABLET DELAYED RELEASE 1 tablet by mouth twice daily PRN Knee pain DICLOFENAC SODIUM 75 MG ORAL TABLET DELAYED RELEASE 658197 DICLOFENAC SODIUM Inactive METOCLOPRAMIDE HCL 10 MG ORAL TABLET take one PO tid PRN nausea METOCLOPRAMIDE HCL 10 MG ORAL TABLET 975701 METOCLOPRAM ZACH HCL Inactive TERBINAFINE HCL 250 MG ORAL TABLET take one table PO one time da moises TERBINAFINE HCL 250 MG ORAL TABLET 820668 TERBINAFINE H CL Inactive BUPROPION HCL ER [...] SICKNESS 25 M G ORAL TABLET CHEWABLE 425576 MECLIZINE HCL Inactive SUMATRIPTAN SUCCINATE 100 MG ORAL TABLET Take one PRN for migran e SUMATRIPTAN SUCCINATE 100 MG ORAL TABLET 770530 SUMATRIPTAN SUCCINATE Inactive COMPRO 25 MG RECTAL SUPPOSITORY insert or apply one garza ppository rectally as directed every 12 hours as needed for nausea COMPRO 25 MG RECTAL SUPPOSITORY 365038 PROCHLORPERAZINE Inactive ONDANSETRON 8 MG ORAL TABLET DISINTEGRATING place one tablet on tongue and allow to dissolve every 6 hours as needed for vomitting ONDANSETRON 8 MG ORAL TABLET DISINTEGRATING 419273 ONDANSETRON Inactive HYDROCODONE-ACETAMINOPHEN 5-325 MG ORAL TABLET 0.5 to 1 tab by mouth every 6 hours as needed HYDROCODONE-ACETAMIN OPHEN 5-325 MG ORAL TABLET 081985 HYDROCODONE-ACETAMINOPHEN Inactive BACTRIM DS 800-160 MG ORAL TABLET 1 tab by mouth twice daily 201 11/23/03 BACTRIM DS 800-160 MG ORAL TABLET 402987 TRIMETHOPRIM-SULFAMETHOXAZOLE Inactive DIFLUCAN 150 MG ORAL TABLET 1 tablet by mouth if neede d, hold until symptoms start DIFLUCAN 150 MG ORAL TABLET 772941 FLUCONAZ OLE Inactive IBUPROFEN 800 MG ORAL TABLET 1 tab every 8 hours with food 03/20 IBUPROFEN 800 MG ORAL TABLET 509127 IBUPROFEN Krupa ctive HYDROCODONE-ACETAMINOPHEN 5-325 MG ORAL TABLET 1 tab b y mouth every 6 hours as needed HYDROCODONE-ACETAMINOPHEN 5-325 MG ORAL TABLET 597528 HYDROCODONE-ACETAMINOPHEN Inactive BACTROBAN 2 % EXTERNAL CREAM Apply to affected area BID for up to 10 days BACTROBAN 2 % EXTERNAL CREAM 779773 MUPIROCIN CA LCIUM Inactive MAGNESIUM CITRATE 1.745 GM/30ML ORAL SOLUTION 150ml po BID P RN Constipation MAGNESIUM CITRATE 1.745 GM/30ML ORAL SOLUTION 10 62860 MAGNESIUM CITRATE Inactive DIFLUCAN 150 MG ORAL TABLET 1 tablet by mouth qod 2015 DIFLUCAN 150 MG ORAL TABLET 216539 FLUCONAZOLE Inactive BACTRIM DS 800-160 MG ORAL TABLET 1 tab by mouth twice daily 201 12/19/26 BACTRIM DS 800-160 MG ORAL TABLET 118727 TRIMETHOPRIM-SULFAMETHOXAZOLE Inactive CLARITIN 10 MG ORAL TABLET 1 tablet by mouth daily as needed for allergies CLARITIN 10 MG ORAL TABLET 743216 LORATADINE I nactive FLUTICASONE PROPIONATE 50 MCG/ACT NASAL SUSPENSION 2 s prays/nostril qd PRN Congestion/Allergies FLUTICASONE PROPION ATE 50 MCG/ACT NASAL SUSPENSION 2924613 FLUTICASONE PROPIONATE Inactive CIPRO 500 MG ORAL TABLET 1 tablet by mouth twice daily CIPRO 500 MG ORAL TABLET 284421 CIPROFLOXACIN HCL Inactive FLUCONAZOLE 150 MG ORAL TABLET take 1 tab po qday once FLUCONAZOLE 150 MG ORAL TABLET 358870 FLUCONAZOLE Inactive ZITHROMAX Z-KARTHIK 250 MG ORAL TABLET 2 today, then 1 daily for 4 d ays ZITHROMAX Z-KARTHIK 250 MG ORAL TABLET 714876 AZITHROMYCIN Inactive PREDNISONE 20 MG ORAL TABLET 2 tabs daily for 3 days, 1 tab daily for 3 days, 1/2 tab daily for 2 days PREDNISONE 20 MG ORAL T ABLET 761189 PREDNISONE Inactive AZITHROMYCIN 250 MG ORAL TABLET 2 po qd x 1 day, then 1 po q d x 4 days AZITHROMYCIN 250 MG ORAL TABLET 882309 AZITHROMY SPARKLE Inactive PREDNISONE 20 MG ORAL TABLET 2 tabs daily for 3 days, 1 tab daily for 3 days, 1/2 tab daily for 2 days PREDNISONE 20 MG ORAL TABLET 331593 PREDNISONE Inactive CEFDINIR 300 MG ORAL CAPSULE by mouth twice a day 2013 CEFDINIR 300 MG ORAL CAPSULE 228689 CEFDINIR Inactive TRIAMCINOLONE ACETONIDE 0.1 % EXTERNAL OINTMENT Apply to affected areas TID for up to 2 weeks TRIAMCINOLONE ACETON ZACH 0.1 % EXTERNAL OINTMENT 2248419 TRIAMCINOLONE ACETONIDE Inactive PREDNISONE 20 MG ORAL TABLET 2 tabs daily for 3 days, 1 tab daily for 3 days, 1/2 tab daily for 2 days PREDNISONE 20 MG ORAL T ABLET 773999 PREDNISONE Inactive BACTRIM DS 800-160 MG ORAL TABLET 1 po BID x 7 days 29/04/10 BACTRIM DS 800-160 MG ORAL TABLET 120254 SULFAMETHOXAZOLE-TRIMETHOP RIM Inactive CIPRO 500 MG ORAL TABLET 1 tablet by mouth twice daily CIPRO 500 MG ORAL TABLET 094488 CIPROFLOXACIN HCL Inactive AZITHROMYCIN 250 MG ORAL TABLET 2 po qd x 1 day, then 1 po q d x 4 days AZITHROMYCIN 250 MG ORAL TABLET 821762 AZITHROMY SPARKLE Inactive FLAGYL 500 MG ORAL TABLET 1 tablet by mouth bid 04/13 FLAGYL 500 MG ORAL TABLET 792193 METRONIDAZOLE Inactive AZITHROMYCIN 250 MG ORAL TABLET 2 po qd x 1 day, then 1 po q d x 4 days AZITHROMYCIN 250 MG ORAL TABLET 629233 AZITHROMY SPARKLE Inactive AMOXICILLIN 500 MG ORAL CAPSULE 2 po BID x 10 days 201 01/15/27 AMOXICILLIN 500 MG ORAL CAPSULE 005801 AMOXICILLIN Inactive Immunizations Vaccine Administration Date Value Standard Michael cription TB-PPD (tuberculin purified protein derivative), intra dermal administration Tubersol Vital Signs Date Name Value Unit Range Description blood pressure, diastolic 77 mm[Hg] BP mathew blood pressure, systolic 124 mm[Hg] BP sys pulse rate E&M 74 /min Heart rate temperature E&M 98.7 [degF] Body temp erature weight E&M 133 [lb_av] Weight Measure d blood pressure, diastolic 83 mm[Hg] BP mathew blood pressure, systolic 127 mm[Hg] BP sys height E&M 63.5 [in_us] Bdy height pulse rate E&M 90 /min Heart rate temperature E&M 98.7 [degF] Body temp erature weight E&M 121.6 [lb_av] Weight Measure d blood pressure, diastolic 88 mm[Hg] BP mathew blood pressure, systolic 125 mm[Hg] BP sys height E&M 63.5 [in_us] Bdy height pulse rate E&M 78 /min Heart rate temperature E&M 97.9 [degF] Body temp erature weight E&M 125.8 [lb_av] Weight Measure d blood pressure, diastolic 68 mm[Hg] BP mathew blood pressure, systolic 122 mm[Hg] BP sys pulse rate E&M 69 /min Heart rate temperature E&M 98.3 [degF] Body temp erature weight E&M 130.3 [lb_av] Weight Measure d Diagnostic Results Date Name Value Unit Range Description Lab Report: CBC-QUEST, COMPREHENSIVE MET ABOLIC PANEL, LIPID PANEL - Chemistry cholesterol, serum 192 mg/dL 680-735 1488/02/20 HDL cholesterol, serum 31 mg/dL > OR [...] 11 .0-15.0 platelet count 218 THOUSAND/UL 10*3/mm3 230-605 3085/02/20 mean platelet volume 9.7 fL 7.5-12.5 Encounters Code Encounter Date Provider Facility CPT-80917 Level 3 Est. Patient 13:05:44 CDT Paul Hamlin MD [facility] CPT-62110 Level 3 Est. Patient 11:29:55 CDT Checo Conklin MD [facility] CPT-67013 Level 4 Est. Patient 11:08:12 BILING[employer] CALL CENTER REPRESENTATIVE Checo Conklin MD [facility] CPT-17126 Level 4 Est. Patient 16:06:48 BILINGUAL CALL CENTER REPRESENTATIVE Checo Conklin MD [facility] CPT-32498 Level 3 Est. Patient 09:11:49 CDT Efren almendarez [facility] CPT-13671 Level 2 Est. Patient 19:53:27 CDT Tanner hill MD [facility]-33556 Level 3 Est. Patient 09:15:34 CDT Efren almendarez [facility] CPT-55550 Level 3 Est. Patient 11:28:51 BILINGUAL CALL CENTER REPRESENTATIVE Efren almendarez [facility] CPT-76382 Level 4 Est. Patient 13:55:46 BILINGUAL CALL CENTER REPRESENTATIVE Checo Conklin MD [facility] CPT-86552 Level 4 Est. Patient 17:10:53 CDT Checo Conklin MD [facility] CPT-31166 Level 3 Est. Patient 15:56:22 CDT Checo Conklin MD [facility] CPT-99175 Level 3 Est. Patient 15:29:07 CDT Checo Conklin MD [facility] CPT-31382 Level 3 Est. Patient 14:38:41 CDT Checo Conklin MD [facility] CPT-96254 Level 3 Est. Patient 15:22:03 BILING[employer] CALL CENTER REPRESENTATIVE Thomas reynolds DO [facility] CPT-83408 Level 3 Est. Patient 13:34:17 BILINGUAL CALL CENTER REPRESENTATIVE Checo Conklin MD [facility] CPT-73212 Level 3 Est. Patient 12:29:32 CDT Dangelo arroyo MD [facility] CPT-84469 Level 3 Est. Patient 16:53:02 CDT Checo Conklin MD [facility] CPT-52307 Level 3 Est. Patient 16:37:13 CDT Checo Conklin MD [facility] CPT-18682 Level 3 Est. Patient 16:16:59 CDT Paul Hamlin MD [facility] CPT-07985 Level 3 Est. Patient 14:20:13 CDT Dangelo arroyo MD [facility] CPT-04589 Level 4 Est. Patient 11:29:33 CDT Checo Conklin MD [facility] CPT-24947 Level 3 Est. Patient 17:08:31 CDT Checo Conklin MD [facility] CPT-86358 Level 3 Est. Patient 16:50:42 BILING[employer] CALL CENTER REPRESENTATIVE Checo Conklin MD [facility] CPT-06623 Level 4 Est. Patient 09:26:08 BILINGUAL CALL CENTER REPRESENTATIVE Checo Conklin MD [facility] CPT-37863 Level 3 Est. Patient 11:37:10 CDT Checo Conklin MD [facility] CPT-01409 Level 4 Est. Patient 14:07:38 CDT Checo Conklin MD [facility] CPT-67909 Level 3 Est. Patient 09:54:41 CDT Checo Conklin MD [facility] CPT-26140 Level 3 Est. Patient 11:10:54 CDT Paul Hamlin MD [facility] CPT-12998 Level 3 Est. Patient 14:16:56 BILINGUAL CALL CENTER REPRESENTATIVE Checo Conklin MD [facility] CPT-27856 Level 3 Est. Patient 11:04:11 BILINGUAL CALL CENTER REPRESENTATIVE Checo Conklin MD [facility] CPT-82774 Level 3 Est. Patient 17:09:26 CDT Dangelo arroyo MD [facility] CPT-52502 Level 3 Est. Patient 16:54:37 CDT Checo Conklin MD [facility] Procedures Code Procedure Name Date Entry Date Standard Desc ription CPT-66548 UA w micro - LAB USE ONLY 17:06:46 CDT 2015 CPT-84391 [facility] Qual - LAB USE ONLY 17:06:46 CDT 05/06 CPT-66426 CMP - LAB USE ONLY 17:06:46 CDT CPT-86043 CBC with Diff - LAB USE ONLY 17:06:45 CDT 2 CPT-34320 Venipuncture Draw Fee 17:06:45 CDT CPT-LR Lesion Removal 19:53:27 CDT CPT-OV Office Visit 11:31:28 CDT CPT-66275 Tubersol 09:39:29 CDT CPT-J2550 Phenergan 25 mg (Promethazine) 13:59:02 BILINGUAL CALL CENTER REPRESENTATIVE CPT-J1885 Toradol 60 mg (Ketorolac) 13:59:02 BILINGUAL CALL CENTER REPRESENTATIVE 2012
--- OUTSIDE RECORDS SUMMARY | 2019-09-29 01:24 | XMS REPORT | Clinical Summary ---
Author Author Admin, Bethany Gonzales Organization [employer] Address Unknown Phone Unavailable Allergies, Adverse [...] specified gastritis, without menti on of hemorrhage FH BREAST CANCER ICD-V16.3 Inactive Checo Joshua [...] Nausea ICD-787.02 Ozzy Conklin MD 201 02/15/12 Medication List Medication Instructions Start Date Stop Date Generic Name NDC Status Provider Patient Instruction PAROXETINE HCL 40 MG ORAL TABLET 1 po qd PAR OXETINE HCL [id number] Active Checo Conklin MD Active MIRALAX ORAL POWDER 8.5 to 17g po qd PRN Constipation POLYETHYLENE GLYCOL 3350 [id number] No Longer Active Checo Conklin MD Active PROTONIX 40 MG ORAL TABLET DELAYED RELEASE 1 pill by m outh daily, for acid reflux PANTOPRAZOLE SODIUM 32702640487 No Longer Activ e Corry Méndez LPN Active FLAGYL 500 MG ORAL TABLET 1 tablet by mouth bid 08/29 METRONIDAZOLE 22603962084 No Longer Active Corry Méndez LPN Active CLARITHROMYCIN 500 MG ORAL TABLET 1 tab po BID x 14 days CLARITHROMYCIN 52838339074 No Longer Active Corry Méndez LPN Active AMOXICILLIN 500 MG ORAL CAPSULE 2 po BID x 14 days for H. Pylori AMOXICILLIN 60101174402 No Longer Active Corry Méndez LPN Active FLUTICASONE PROPIONATE 50 MCG/ACT NASAL SUSPENSION 2 s prays/nostril qd PRN Congestion/Allergies FLUTICASONE PROPIONATE 9874684143 9 No Longer Active Checo Conklin MD Active AMOXICILLIN 500 MG ORAL CAPSULE 2 po BID x 10 days 201 01/15/27 AMOXICILLIN 03219631685 No Longer Active Checo Conklin MD Activ e CLARITIN 10 MG ORAL TABLET 1 tablet by mouth daily as needed for allergies LORATADINE 61715613086 No Longer Active Checo Ortiz MD Active BACTRIM DS 800-160 MG ORAL TABLET 1 tab by mouth twice daily 201 12/19/26 TRIMETHOPRIM-SULFAMETHOXAZOLE 98497510831 No Longer Active Ragini Carrillo MD Active DIFLUCAN 150 MG ORAL TABLET 1 tablet by mouth qod 2015 FLUCONAZOLE 09100908274 No Longer Active Efren Medel APRN Act mike AZITHROMYCIN 250 MG ORAL TABLET 2 po qd x 1 day, then 1 po q d x 4 days AZITHROMYCIN 42007395213 No Longer Active Efren flores APRN Active FLAGYL 500 MG ORAL TABLET 1 tablet by mouth bid 04/13 METRONIDAZOLE 26809640969 No Longer Active Checo Conklin MD Acti ve FOCALIN XR 10 MG ORAL CAPSULE EXTENDED RELEASE 24 HOUR 1 po q a.m. DEXMETHYLPHENIDATE HCL 77751803637 Active Checo Conklin MD Active MAGNESIUM CITRATE 1.745 GM/30ML ORAL SOLUTION 150ml po BID P RN Constipation MAGNESIUM CITRATE 65224753311 No Longer Active Checo Conklin MD Active BACTROBAN 2 % EXTERNAL CREAM Apply to affected area BID for up to 10 days MUPIROCIN CALCIUM 38117351561 No Longer Active Checo Conklin MD Active HYDROCODONE-ACETAMINOPHEN 5-325 MG ORAL TABLET 1 tab b y mouth every 6 hours as needed HYDROCODONE-ACETAMINOPHEN 22135523618 No Longer Active Checo Conklin MD Active IBUPROFEN 800 MG ORAL TABLET 1 tab every 8 hours with food 03/20 IBUPROFEN 33414801446 No Longer Active Checo Conklin MD Active DIFLUCAN 150 MG ORAL TABLET 1 tablet by mouth if neede d, hold until symptoms start FLUCONAZOLE 49675639287 No Longer Active Checo Conklin MD Active BACTRIM DS 800-160 MG ORAL TABLET 1 tab by mouth twice daily 201 11/23/03 TRIMETHOPRIM-SULFAMETHOXAZOLE 71846821865 No Longer Active K bernice Méndez, WASTE EXAMINER Active HYDROCODONE-ACETAMINOPHEN 5-325 MG ORAL TABLET 0.5 to 1 tab by mouth every 6 hours as needed HYDROCODONE-ACETAMINOPHEN 19138386748 No Longer Active Checo Conklin MD Active ONDANSETRON 8 MG ORAL TABLET DISINTEGRATING place one tablet on tongue and allow to dissolve every 6 hours as needed for vomitting ONDANSETRON 88986365880 No Longer Active Checo Conklin MD Activ e COMPRO 25 MG RECTAL SUPPOSITORY insert or apply one garza ppository rectally as directed every 12 hours as needed for nausea PROCHLORPERAZINE 25758618416 No Longer Active Checo Conklin MD A ctive SUMATRIPTAN SUCCINATE 100 MG ORAL TABLET Take one PRN for migran e SUMATRIPTAN SUCCINATE 72133566715 No Longer Active Checo Conklin MD Active TRAVEL SICKNESS 25 MG ORAL TABLET CHEWABLE chew and sw allow one tablet every 6 hours as needed MECLIZINE HCL 15753111004 No Longer A ctive Checo Conklin MD Active BUPROPION HCL ER (SR) 100 MG ORAL TABLET EXTENDED RELE ASE 12 HOUR take one tablet by mouth one time daily for one week then take 1 two times daily BUPROPION HCL 48911413933 No Longer Active Checo gallagher MD Active TERBINAFINE HCL 250 MG ORAL TABLET take one table PO one time da moises TERBINAFINE HCL 76780244573 No Longer Active Checo Conklin MD Active METOCLOPRAMIDE HCL 10 MG ORAL TABLET take one PO tid PRN nausea METOCLOPRAMIDE HCL 06389421438 No Longer Active Checo Conklin MD Active DICLOFENAC SODIUM 75 MG ORAL TABLET DELAYED RELEASE 1 tablet by mouth twice daily PRN Knee pain DICLOFENAC SODIUM 63958613158 No Longer Active Checo Conklin MD Active LAMISIL 250 MG ORAL TABLET 1 po qd TERBINAFI NE HCL 39124946105 No Longer Active Checo Conklin MD Active REGLAN 10 MG ORAL TABLET 1 po TID PRN Nausea 3 METOCLOPRAMIDE HCL 44055286547 No Longer Active Checo Conklin MD Active CELEXA 20 MG ORAL TABLET 1 tablet by mouth daily 09/26 CITALOPRAM HYDROBROMIDE 76097885046 No Longer Active Checo Conklin MD Active AZITHROMYCIN 250 MG ORAL TABLET 2 po qd x 1 day, then 1 po q d x 4 days AZITHROMYCIN 02392286848 No Longer Active Checo Ortiz MD Active HYDROCODONE-ACETAMINOPHEN 5-325 MG ORAL TABLET 1 po q 6hr PRN Pa in HYDROCODONE-ACETAMINOPHEN 19433613000 No Longer Active Lenora Conklin MD Active PHENAZOPYRIDINE HCL 200 MG ORAL TABLET take 1 tab po TID for bladder pain PHENAZOPYRIDINE HCL 39608551149 No Longer Active Joe Conklin MD Active CIPRO 500 MG ORAL TABLET 1 tablet by mouth twice daily CIPROFLOXACIN HCL 51128569171 No Longer Active Dangelo Rangel MD Active HYDROCODONE-ACETAMINOPHEN 5-325 MG ORAL TABLET 1/2 to 1 po q 4 hours prn cough HYDROCODONE-ACETAMINOPHEN 22367601179 No Longer Activ e Dangelo Rangel MD Active BACTRIM DS 800-160 MG ORAL TABLET 1 po BID x 7 days 29/04/10 SULFAMETHOXAZOLE-TRIMETHOPRIM 06919477169 No Longer Active Checo Conklin MD Active PREDNISONE 20 MG ORAL TABLET 2 tabs daily for 3 days, 1 tab daily for 3 days, 1/2 tab daily for 2 days PREDNISONE 28832588587 No Longer Active Checo Conklin MD Active TRIAMCINOLONE ACETONIDE 0.1 % EXTERNAL OINTMENT Apply to affected areas TID for up to 2 weeks TRIAMCINOLONE ACETONIDE 42999235276 No Longer Active Checo Conklin MD Active CEFDINIR 300 MG ORAL CAPSULE by mouth twice a day 2013 CEFDINIR 58155471209 No Longer Active Dangelo Rangel MD Acti ve BUPROPION HCL ER (SMOKING DET) 150 MG ORAL TABLET EXTE NDED RELEASE 12 HOUR 1 a day for 1 week then 1 twice a day BUPROPION HCL (SMOKING DETER) 62298255654 No Longer Active Checo Conklin MD Active SIMVASTATIN 20 MG ORAL TABLET 1 po qd SIMVASTAT IN 46858732002 Active Checo Conklin MD Active CHANTIX STARTING MONTH KARTHIK 0.5 MG X 11 & 1 MG X 42 ORA L TABLET 0.5mg daily for 3 days, then 0.5mg BID for 4 days, then 1mg BID VARENICLINE TARTRATE 16636780080 No Longer Active Checo Conklin MD Activ e XANAX 0.5 MG ORAL TABLET 1 po BID PRN anxiety A LPRAZOLAM 79019177881 Active Checo Conklin MD Active CONCERTA 18 MG ORAL TABLET EXTENDED RELEASE 1 po q a.m. METHYLPHENIDATE HCL 66349838067 No Longer Active Checo Conklin MD Active AMBIEN 5 MG ORAL TABLET 1 po qHS PRN Insomnia Z OLPIDEM TARTRATE 66233119996 Active Checo Conklin MD Active TRAZODONE HCL 100 MG ORAL TABLET 0.5 to 1 po qHS PRN Insomnia 20 30/07/08 TRAZODONE HCL 84680584449 No Longer Active Checo Conklin MD Active FIORICET 325-50-40 MG TAB 1 tablet by mouth four times daily as needed PSHWANDOTIZSI-[id number] 65046596568 No Longer Active Checo Conklin MD Active PHENERGAN CREAM* 25mg applied to wrist q6hr PRN Nausea PHENERGAN CREAM* No Longer Active Checo Conklin MD A ctive FLONASE 50 MCG/ACT NASAL SUSPENSION 1 spray each nostril am and hs FLUTICASONE PROPIONATE 52922322756 No Longer Active Checo Conklin MD Active ANTIPYRINE-BENZOCAINE 5.4-1.4 % OTIC SOLUTION 1-2 drops in affec yohannes ear BENZOCAINE-ANTIPYRINE 83671872962 No Longer Active Checo Conklin MD Active CEFDINIR 300 MG ORAL CAPSULE 1 po bid CEFDINIR 31976843152 No Longer Active Checo Conklin MD Active PREDNISONE 20 MG ORAL TABLET 2 tabs daily for 3 days, 1 tab daily for 3 days, 1/2 tab daily for 2 days PREDNISONE 33351435479 No Longer Active Checo Conklin MD Active AZITHROMYCIN 250 MG ORAL TABLET 2 po qd x 1 day, then 1 po q d x 4 days AZITHROMYCIN 71398774670 No Longer Active Checo Ortiz MD Active PREDNISONE 20 MG ORAL TABLET 2 tabs daily for 3 days, 1 tab daily for 3 days, 1/2 tab daily for 2 days PREDNISONE 73429843460 No Longer Active Checo Conklin MD Active ZITHROMAX Z-KARTHIK 250 MG ORAL TABLET 2 today, then 1 daily for 4 d ays AZITHROMYCIN 97603057883 No Longer Active Paul Hamlin MD Active FOCALIN XR 10 MG ORAL CAPSULE EXTENDED RELEASE 24 HOUR 1 po q a. m. DEXMETHYLPHENIDATE HCL 00346678294 No Longer Active Paul Hamlin MD Active PERCOCET 10-325 MG ORAL TABLET 1 tablet every 6 hours as needed for pain OXYCODONE-ACETAMINOPHEN 22623188085 No Longer Active Paul Hamlin MD Active LORTAB 5-500 MG ORAL TABLET 1/2 to 1 tablet by mouth e very 4 hours as needed for pain HYDROCODONE-ACETAMINOPHEN 64204126202 No Longer Active Checo Conklin MD Active FOCALIN XR 15 MG ORAL CAPSULE EXTENDED RELEASE 24 HOUR 1 po q a. m. DEXMETHYLPHENIDATE HCL 94533639485 No Longer Active Checo Conklin MD Active ZOFRAN ODT 4 MG ORAL TABLET DISINTEGRATING 1 po q6hr PRN Nausea ONDANSETRON 74599515693 No Longer Active Checo Conklin MD Active PERCOCET 5-325 MG ORAL TABLET 1 tablet by mouth every 6 hour s as needed OXYCODONE-ACETAMINOPHEN 81980035857 No Longer Active Checo Conklin MD Active PYRIDIUM 200 MG ORAL TABLET take 1 tab po TID prn urinary pain. PHENAZOPYRIDINE HCL 45286519333 No Longer Active Checo Joshua Active FLUCONAZOLE 150 MG ORAL TABLET take 1 tab po qday once FLUCONAZOLE 61042017677 No Longer Active Dangelo Rangel MD Acti ve CIPRO 500 MG ORAL TABLET 1 tablet by mouth twice daily CIPROFLOXACIN HCL 80009599685 No Longer Active Dangelo Rangel MD Active PYRIDIUM 200 MG ORAL TABLET take 1 tab po TID prn urinary pain. PYRIDIUM 200 MG ORAL TABLET 5309281 PHENAZOPYRIDINE HCL Inactive PERCOCET 5-325 MG ORAL TABLET 1 tablet by mouth every 6 hour s as needed PERCOCET 5-325 MG ORAL TABLET 1339985 OXYCODONE-ACETAMINOPHEN Inactive ZOFRAN ODT 4 MG ORAL TABLET DISINTEGRATING 1 po q6hr PRN Nausea ZOFRAN ODT 4 MG ORAL TABLET DISINTEGRATING 325377 ONDAN SETRON Inactive FOCALIN XR 15 MG ORAL CAPSULE EXTENDED RELEASE 24 HOUR 1 po q a. m. FOCALIN XR 15 MG ORAL CAPSULE EXTENDED RELEASE 24 HOUR DEXMETHYLPHENIDATE HCL Inactive LORTAB 5-500 MG ORAL TABLET 1/2 to 1 tablet by mouth e very 4 hours as needed for pain LORTAB 5-500 MG ORAL TABLET 954946 HYDROCODONE-ACETAMINOPHEN Inactive PERCOCET 10-325 MG ORAL TABLET 1 tablet every 6 hours as needed for pain PERCOCET 10-325 MG ORAL TABLET 3577960 OXYCODONE-ACETAMI NOPHEN Inactive FOCALIN XR 10 MG ORAL CAPSULE EXTENDED RELEASE 24 HOUR 1 po q a. m. FOCALIN XR 10 MG ORAL CAPSULE EXTENDED RELEASE 24 HOUR DEXMETHYLPHENIDATE HCL Inactive CEFDINIR 300 MG ORAL CAPSULE 1 po bid CEFDINI R 300 MG ORAL CAPSULE 211175 CEFDINIR Inactive ANTIPYRINE-BENZOCAINE 5.4-1.4 % OTIC SOLUTION 1-2 drops in affec yohannes ear ANTIPYRINE-BENZOCAINE 5.4-1.4 % OTIC SOLUTION 218811 BENZOCAINE-ANTIPYRINE Inactive FLONASE 50 MCG/ACT NASAL SUSPENSION 1 spray each nostril am and hs FLONASE 50 MCG/ACT NASAL SUSPENSION 9856726 FLUTICASONE PROPIONATE I nactive PHENERGAN CREAM* 25mg applied to wrist q6hr PRN Nausea PHENERGAN CREAM* Inactive FIORICET 325-50-40 MG TAB 1 tablet by mouth four times daily as needed FIORICET 325-50-40 MG TAB ACETAMINOPHEN-C AFF-BUTALBITAL Inactive TRAZODONE HCL 100 MG ORAL TABLET 0.5 to 1 po qHS PRN Insomnia 20 30/07/08 TRAZODONE HCL 100 MG ORAL TABLET 346918 TRAZODONE HCL Inactive CONCERTA 18 MG ORAL [...] cough HYDROCODONE-ACETAMINOPHEN 5-325 MG ORAL TABLET 8 23451 HYDROCODONE-ACETAMINOPHEN Inactive PHENAZOPYRIDINE HCL 200 MG ORAL TABLET take 1 tab po TID for bladder pain PHENAZOPYRIDINE HCL 200 MG ORAL TABLET 8825390 PHENAZOPYRIDINE HCL Inactive HYDROCODONE-ACETAMINOPHEN 5-325 MG ORAL TABLET 1 po q 6hr PRN Pa in HYDROCODONE-ACETAMINOPHEN 5-325 MG ORAL TABLET 053369 HYDROCODONE-ACETAMINOPHEN Inactive CELEXA 20 MG ORAL TABLET 1 tablet by mouth daily 09/26 CELEXA 20 MG ORAL TABLET 908081 CITALOPRAM HYDROBROMIDE Inactive REGLAN 10 MG ORAL TABLET 1 po TID PRN Nausea 3 REGLAN 10 MG ORAL TABLET 260082 METOCLOPRAMIDE HCL Inactive LAMISIL 250 MG ORAL TABLET 1 po qd L AMISIL 250 MG ORAL TABLET 644415 TERBINAFINE HCL Inactive DICLOFENAC SODIUM 75 MG ORAL TABLET DELAYED RELEASE 1 tablet by mouth twice daily PRN Knee pain DICLOFENAC SODIUM 75 MG ORAL TABLET DELAYED RELEASE 026944 DICLOFENAC SODIUM Inactive METOCLOPRAMIDE HCL 10 MG ORAL TABLET take one PO tid PRN nausea METOCLOPRAMIDE HCL 10 MG ORAL TABLET 825639 METOCLOPRAM ZACH HCL Inactive TERBINAFINE HCL 250 MG ORAL TABLET take one table PO one time da moises TERBINAFINE HCL 250 MG ORAL TABLET 121783 TERBINAFINE H CL Inactive BUPROPION HCL ER [...] SICKNESS 25 M G ORAL TABLET CHEWABLE 794401 MECLIZINE HCL Inactive SUMATRIPTAN SUCCINATE 100 MG ORAL TABLET Take one PRN for migran e SUMATRIPTAN SUCCINATE 100 MG ORAL TABLET 581776 SUMATRIPTAN SUCCINATE Inactive COMPRO 25 MG RECTAL SUPPOSITORY insert or apply one garza ppository rectally as directed every 12 hours as needed for nausea COMPRO 25 MG RECTAL SUPPOSITORY 665160 PROCHLORPERAZINE Inactive ONDANSETRON 8 MG ORAL TABLET DISINTEGRATING place one tablet on tongue and allow to dissolve every 6 hours as needed for vomitting ONDANSETRON 8 MG ORAL TABLET DISINTEGRATING 844268 ONDANSETRON Inactive HYDROCODONE-ACETAMINOPHEN 5-325 MG ORAL TABLET 0.5 to 1 tab by mouth every 6 hours as needed HYDROCODONE-ACETAMIN OPHEN 5-325 MG ORAL TABLET 364020 HYDROCODONE-ACETAMINOPHEN Inactive BACTRIM DS 800-160 MG ORAL TABLET 1 tab by mouth twice daily 201 11/23/03 BACTRIM DS 800-160 MG ORAL TABLET 080403 TRIMETHOPRIM-SULFAMETHOXAZOLE Inactive DIFLUCAN 150 MG ORAL TABLET [...] as needed HYDROCODONE-ACETAMINOPHEN 5-325 MG ORAL TABLET 017729 HYDROCODONE-ACETAMINOPHEN Inactive BACTROBAN 2 % EXTERNAL CREAM Apply to affected area BID for up to 10 days BACTROBAN 2 % EXTERNAL CREAM 230199 MUPIROCIN CA LCIUM Inactive MAGNESIUM CITRATE 1.745 GM/30ML ORAL SOLUTION 150ml po BID P RN Constipation MAGNESIUM CITRATE 1.745 GM/30ML ORAL SOLUTION 10 67554 MAGNESIUM CITRATE Inactive DIFLUCAN 150 MG ORAL TABLET 1 tablet by mouth qod 2015 DIFLUCAN 150 MG ORAL TABLET 083121 FLUCONAZOLE Inactive BACTRIM DS 800-160 MG ORAL TABLET 1 tab by mouth twice daily 201 12/19/26 BACTRIM DS 800-160 MG ORAL TABLET 339488 TRIMETHOPRIM-SULFAMETHOXAZOLE Inactive CLARITIN 10 MG ORAL TABLET 1 tablet by mouth daily as needed for allergies CLARITIN 10 MG ORAL TABLET 813597 LORATADINE I nactive FLUTICASONE PROPIONATE 50 MCG/ACT NASAL SUSPENSION 2 s prays/nostril qd PRN Congestion/Allergies FLUTICASONE PROPION ATE 50 MCG/ACT NASAL SUSPENSION 5720875 FLUTICASONE PROPIONATE Inactive MIRALAX ORAL POWDER 8.5 to 17g po qd PRN Constipation MIRALAX ORAL POWDER 841788 POLYETHYLENE GLYCOL 3350 Inactive CIPRO 500 MG ORAL TABLET 1 tablet by mouth twice daily CIPRO 500 MG ORAL TABLET 723563 CIPROFLOXACIN HCL Inactive FLUCONAZOLE 150 MG ORAL TABLET take 1 tab po qday once FLUCONAZOLE 150 MG ORAL TABLET 573642 FLUCONAZOLE Inactive ZITHROMAX Z-KARTHIK 250 MG ORAL TABLET 2 today, then 1 daily for 4 d ays ZITHROMAX Z-KARTHIK 250 MG ORAL TABLET 499504 AZITHROMYCIN Inactive PREDNISONE 20 MG ORAL TABLET 2 tabs daily for 3 days, 1 tab daily for 3 days, 1/2 tab daily for 2 days PREDNISONE 20 MG ORAL T ABLET 080241 PREDNISONE Inactive AZITHROMYCIN 250 MG ORAL TABLET 2 po qd x 1 day, then 1 po q d x 4 days AZITHROMYCIN 250 MG ORAL TABLET 491509 AZITHROMY SPARKLE Inactive PREDNISONE 20 MG ORAL TABLET 2 tabs daily for 3 days, 1 tab daily for 3 days, 1/2 tab daily for 2 days PREDNISONE 20 MG ORAL TABLET 131771 PREDNISONE Inactive CEFDINIR 300 MG ORAL CAPSULE by mouth twice a day 2013 CEFDINIR 300 MG ORAL CAPSULE 365179 CEFDINIR Inactive TRIAMCINOLONE ACETONIDE 0.1 % EXTERNAL OINTMENT Apply to affected areas TID for up to 2 weeks TRIAMCINOLONE ACETON ZACH 0.1 % EXTERNAL OINTMENT 8919166 TRIAMCINOLONE ACETONIDE Inactive PREDNISONE 20 MG ORAL TABLET 2 tabs daily for 3 days, 1 tab daily for 3 days, 1/2 tab daily for 2 days PREDNISONE 20 MG ORAL T ABLET 987834 PREDNISONE Inactive BACTRIM DS 800-160 MG ORAL TABLET 1 po BID x 7 days 29/04/10 BACTRIM DS 800-160 MG ORAL TABLET 529625 SULFAMETHOXAZOLE-TRIMETHOP RIM Inactive CIPRO 500 MG ORAL TABLET 1 tablet by mouth twice daily CIPRO 500 MG ORAL TABLET 827205 CIPROFLOXACIN HCL Inactive AZITHROMYCIN 250 MG ORAL TABLET 2 po qd x 1 day, then 1 po q d x 4 days AZITHROMYCIN 250 MG ORAL TABLET 717715 AZITHROMY SPARKLE Inactive FLAGYL 500 MG ORAL TABLET 1 tablet by mouth bid 04/13 FLAGYL 500 MG ORAL TABLET 709200 METRONIDAZOLE Inactive AZITHROMYCIN 250 MG ORAL TABLET 2 po qd x 1 day, then 1 po q d x 4 days AZITHROMYCIN 250 MG ORAL TABLET 990121 AZITHROMY SPARKLE Inactive AMOXICILLIN 500 MG ORAL CAPSULE 2 po BID x 10 days 201 01/15/27 AMOXICILLIN 500 MG ORAL CAPSULE 114987 AMOXICILLIN Inactive AMOXICILLIN 500 MG ORAL CAPSULE 2 po BID x 14 days for H. Pylori AMOXICILLIN 500 MG ORAL CAPSULE 464444 AMOXICILLIN Inactive CLARITHROMYCIN 500 MG ORAL TABLET 1 tab po BID x 14 days CLARITHROMYCIN 500 MG ORAL TABLET 603223 CLARITHROMYCIN Inacti ve FLAGYL 500 MG ORAL TABLET 1 tablet by mouth bid 08/29 FLAGYL 500 MG ORAL TABLET 968194 METRONIDAZOLE Inactive PROTONIX 40 MG ORAL TABLET DELAYED RELEASE 1 pill by m outh daily, for acid reflux PROTONIX 40 MG ORAL TABLET DELAYED RELEAS E 688709 PANTOPRAZOLE SODIUM Inactive Immunizations Vaccine Administration Date Value Standard Michael cription TB-PPD (tuberculin purified protein derivative), intra dermal administration Tubersol Vital Signs Date Name Value Unit Range Description blood pressure, diastolic 78 mm[Hg] BP mathew [...] weight E&M 121.6 [lb_av] Weight Measure d Diagnostic Results Date [...] 10*3/mm3 142-424 Lab Report: Comp. Metabolic Panel, Eryth rocyte Sed Rate, UADIP W/MICRO, ... - Chemistry sodium, serum 139 mmol/L 574-632 3056/11/28 carbon dioxide, venous blood 26.0 mmol/L 21.0-32 [...] >=1.030 1.000-1.030 pH, urine, semiquantitative 6.0 5.0-8.5 Encounters Code Encounter Date Provider Facility CPT-24333 Level 4 Est. Patient 08:57:51 COLD SAW OPERATOR Chceo Conklin MD [facility] CPT-81336 Level 3 Est. Patient 11:24:55 COLD SAW OPERATOR Efren almendarez APRN [facility] CPT-16923 Level 3 Est. Patient 13:05:44 CDT Paul Hamlin MD [facility] CPT-59401 Level 3 Est. Patient 11:29:55 CDT Checo Conklin MD [facility] CPT-87090 Level 4 Est. Patient 11:08:12 COLD SAW OPERATOR Checo Conklin MD [facility] CPT-81069 Level 4 Est. Patient 16:06:48 COLD SAW OPERATOR Checo Conklin MD [facility] CPT-33504 Level 3 Est. Patient 09:11:49 CDT Efren almendarez [facility] CPT-86850 Level 2 Est. Patient 19:53:27 CDT Tanner hill MD [facility] CPT-98557 Level 3 Est. Patient 09:15:34 CDT Efren almendarez [facility] CPT-75386 Level 3 Est. Patient 11:28:51 COLD SAW OPERATOR Efren almendarez [facility] CPT-24234 Level 4 Est. Patient 13:55:46 COLD SAW OPERATOR Checo Conklin MD [facility] CPT-06470 Level 4 Est. Patient 17:10:53 CDT Checo Conklin MD [facility] CPT-31118 Level 3 Est. Patient 15:56:22 CDT Checo Conklin MD [facility] CPT-02569 Level 3 Est. Patient 15:29:07 CDT Checo Conklin MD [facility] CPT-76540 Level 3 Est. Patient 14:38:41 CDT Checo Conklin MD [facility] CPT-57968 Level 3 Est. Patient 15:22:03 COLD SAW OPERATOR Thomas reynolds DO [facility] CPT-47090 Level 3 Est. Patient 13:34:17 COLD SAW OPERATOR Checo Conklin MD [facility] CPT-09748 Level 3 Est. Patient 12:29:32 CDT Dangelo arroyo MD [facility] CPT-51391 Level 3 Est. Patient 16:53:02 CDT Checo Conklin MD [facility] CPT-84892 Level 3 Est. Patient 16:37:13 CDT Checo Conklin MD [facility] CPT-56456 Level 3 Est. Patient 16:16:59 CDT Paul Hamlin MD [facility] CPT-82761 Level 3 Est. Patient 14:20:13 CDT Dangelo arroyo MD [facility] CPT-46399 Level 4 Est. Patient 11:29:33 CDT Checo Conklin MD [facility] CPT-28799 Level 3 Est. Patient 17:08:31 CDT Checo Conklin MD [facility] CPT-45180 Level 3 Est. Patient 16:50:42 COLD SAW OPERATOR Checo Conklin MD [facility] CPT-48963 Level 4 Est. Patient 09:26:08 COLD SAW OPERATOR Checo Conklin MD [facility] CPT-56717 Level 3 Est. Patient 11:37:10 CDT Checo Conklin MD [facility] CPT-83331 Level 4 Est. Patient 14:07:38 CDT Checo Conklin MD [facility] CPT-55364 Level 3 Est. Patient 09:54:41 CDT Checo Conklin MD [facility] CPT-74991 Level 3 Est. Patient 11:10:54 CDT Paul Hamlin MD [facility] CPT-51225 Level 3 Est. Patient 14:16:56 COLD SAW OPERATOR Checo Conklin MD [facility] CPT-60347 Level 3 Est. Patient 11:04:11 COLD SAW OPERATOR Checo Conklin MD [facility] CPT-93223 Level 3 Est. Patient 17:09:26 CDT Dangelo arroyo MD [facility] CPT-04052 Level 3 Est. Patient 16:54:37 CDT Checo Conklin MD [facility] Procedures Code Procedure Name Date Entry Date Standard Desc ription CPT-56796 Abd compl w upright - XRAY USE ONLY 1 1:36:54 COLD SAW OPERATOR CPT-24644 UA w micro - LAB USE ONLY 17:06:46 CDT 2015 CPT-58542 [facility]CG Qual - LAB USE ONLY 17:06:46 CDT 05/06 CPT-61752 CMP - LAB USE ONLY 17:06:46 CDT CPT-61044 CBC with Diff - LAB USE ONLY 17:06:45 CDT 2 CPT-82412 Venipuncture Draw Fee 17:06:45 CDT CPT-LR Lesion Removal 19:53:27 CDT CPT-OV Office Visit 11:31:28 CDT CPT-08106 Tubersol 09:39:29 CDT CPT-J2550 Phenergan 25 mg (Promethazine) 13:59:02 COLD SAW OPERATOR CPT-J1885 Toradol 60 mg (Ketorolac) 13:59:02 COLD SAW OPERATOR 2012
--- OUTSIDE RECORDS SUMMARY | 2019-09-29 01:24 | XMS REPORT | Clinical Summary ---
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 [...] TABS 1.5 po qd PAROX ETINE HCL 48689806651 Active Checo Conklin MD Active FLUTICASONE PROPIONATE 50 MCG/ACT NASAL SUSP 2 sprays/ nostril qd PRN Congestion/Allergies FLUTICASONE PROPIONATE 5846482207 5 No Longer Active Checo Conklin MD Active AMOXICILLIN 500 MG ORAL CAPS 2 po BID x 10 days 09/12 AMOXICILLIN 64820698180 No Longer Active Checo Conklin MD Activ e MIRALAX ORAL POWD 8.5 to 17g po qd PRN Constipation POLYETHYLENE GLYCOL 3350 26102487888 Active Checo Conklin MD Active CLARITIN 10 MG TAB 1 tablet by mouth daily as needed for allergi es LORATADINE 30027394808 No Longer Active Checo Conklin MD Active BACTRIM DS 800-160 MG TAB 1 tab by mouth twice daily 2 TRIMETHOPRIM-SULFAMETHOXAZOLE 89444830121 No Longer Active Tanner Carrillo MD Active DIFLUCAN 150 MG TAB 1 tablet by mouth qod FLUCO NAZOLE 72041141034 No Longer Active Efren Medel APRN Active AZITHROMYCIN 250 MG TABS 2 po qd x 1 day, then 1 po qd x 4 days AZITHROMYCIN 66455964445 No Longer Active Efren Medel APRN Active FLAGYL 500 MG TAB 1 tablet by mouth bid METRONI DAZOLE 88645495880 No Longer Active Checo Conklin MD Active FOCALIN XR 10 MG ORAL [id number] 1 po q a.m. DEX METHYLPHENIDATE HCL 07276784468 Active Checo Conklin MD Active MAGNESIUM CITRATE 1.745 GM/30ML ORAL SOLN 150ml po BID PRN C onstipation MAGNESIUM CITRATE 04651302232 No Longer Active Checo Conklin MD Active BACTROBAN 2 % CREAM Apply to affected area BID for up to 10 days MUPIROCIN CALCIUM 57154702891 No Longer Active Checo Conklin MD Active HYDROCODONE-ACETAMINOPHEN 5-325 MG TABS 1 tab by mouth every 6 hours as needed HYDROCODONE-ACETAMINOPHEN 46558250197 No Longer Activ e Checo Conklin MD Active IBUPROFEN 800 MG TABS 1 tab every 8 hours with food 20 31/03/21 IBUPROFEN 85004424518 No Longer Active Checo Conklin MD Activ e DIFLUCAN 150 MG TAB 1 tablet by mouth if needed, hold until symptoms start FLUCONAZOLE 28580987253 No Longer Active Checo Ortiz MD Active BACTRIM DS 800-160 MG TAB 1 tab by mouth twice daily 2 TRIMETHOPRIM-SULFAMETHOXAZOLE 20076544391 No Longer Active Corry leong LPN Active HYDROCODONE-ACETAMINOPHEN 5-325 MG TABS 0.5 to 1 tab b y mouth every 6 hours as needed HYDROCODONE-ACETAMINOPHEN 90142194989 No Longer Active Checo Conklin MD Active ONDANSETRON [address] one tablet on tongue and allow to dissolve every 6 hours as needed for vomitting ONDANSETRO N 22017615359 No Longer Active Checo Conklin MD Active COMPRO 25 MG RECTAL SUPP insert or apply one supposit ory rectally as directed every 12 hours as needed for nausea PROCHLORPERA ZINE 24106845044 No Longer Active Checo Conklin MD Active SUMATRIPTAN SUCCINATE 100 MG ORAL TABS Take one PRN for migrane SUMATRIPTAN SUCCINATE 44682975074 No Longer Active Checo Conklin MD Active TRAVEL SICKNESS 25 MG ORAL CHEW chew and swallow one t ablet every 6 hours as needed MECLIZINE HCL 93053580916 No Longer Active Joe Conklin MD Active BUPROPION HCL ER (SR) 100 MG ORAL [id number] take one t ablet by mouth one time daily for one week then take 1 two times daily BUPROPION HCL 32810646574 No Longer Active Checo Conklin MD Activ e TERBINAFINE HCL 250 MG ORAL TABS take one table PO one time abran y TERBINAFINE HCL 07460612797 No Longer Active Checo Conklin MD Active METOCLOPRAMIDE HCL 10 MG ORAL TABS take one PO tid PRN nausea 20 29/12/14 METOCLOPRAMIDE HCL 41241153120 No Longer Active Checo Conklin MD Active DICLOFENAC SODIUM 75 MG TBEC 1 tablet by mouth twice daily P RN Knee pain DICLOFENAC SODIUM 78015877648 No Longer Active Checo Conklin MD Active LAMISIL 250 MG TAB 1 po qd TERBINAFINE HCL 548 77768979 No Longer Active Checo Conklin MD Active REGLAN 10 MG TAB 1 po TID PRN Nausea METOCLOPRA MIDE HCL 34273672827 No Longer Active Checo Conklin MD Active CELEXA 20 MG TABS 1 tablet by mouth daily CITALOPRAM HYDROBROMIDE 75743712756 No Longer Active Checo Conklin MD Activ e AZITHROMYCIN 250 MG TABS 2 po qd x 1 day, then 1 po qd x 4 days AZITHROMYCIN 81983563931 No Longer Active Checo Conklin MD Active HYDROCODONE-ACETAMINOPHEN 5-325 MG TABS 1 po q 6hr PRN Pain 2013 HYDROCODONE-ACETAMINOPHEN 44262915598 No Longer Active Lenora Conklin MD Active PHENAZOPYRIDINE HCL 200 MG TABS take 1 tab po TID for bladder pa in PHENAZOPYRIDINE HCL 62092240096 No Longer Active Checo Joshua Active CIPRO 500 MG TAB 1 tablet by mouth twice daily CIPROFLOXACIN HCL 61064013359 No Longer Active Dangelo Rangel MD Active HYDROCODONE-ACETAMINOPHEN 5-325 MG TABS 1/2 to 1 po q 4 hour s prn cough HYDROCODONE-ACETAMINOPHEN 32851659203 No Longer Activ e Dangelo Rangel MD Active BACTRIM DS 800-160 MG TABS 1 po BID x 7 days 0 SULFAMETHOXAZOLE-TRIMETHOPRIM 69351376052 No Longer Active Checo Conklin MD Active PREDNISONE 20 MG TAB 2 tabs daily for 3 days, 1 t ab daily for 3 days, 1/2 tab daily for 2 days PREDNISONE 13189156966 No Longer Active Checo Conklin MD Active TRIAMCINOLONE ACETONIDE 0.1 % OINT Apply to affected a reas TID for up to 2 weeks TRIAMCINOLONE ACETONIDE 55921262740 No Longer A ctive Checo Conklin MD Active CEFDINIR 300 MG CAPS by mouth twice a day CEFDI JAZZY 16163446887 No Longer Active aDngelo Rangel MD Active BUPROPION HCL (SMOKING DETER) 150 MG [id number] 1 a day for 1 week then 1 twice a day BUPROPION HCL (SMOKING DETER) 15414647943 No Lo nger Active Checo Conklin MD Active SIMVASTATIN 20 MG TABS 1 po qd SIMVASTATIN 3815889908 5 Active Checo Conklin MD Active CHANTIX STARTING MONTH KARTHIK 0.5 MG X 11 & 1 MG X 42 TAB S 0.5mg daily for 3 days, then 0.5mg BID for 4 days, then 1mg BID VARENICLINE TARTRATE 36013992657 No Longer Active Checo Conklin MD Activ e XANAX 0.5 MG TABS 1 po BID PRN anxiety ALPRAZOLAM 15171705007 Active Checo Conklin MD Active CONCERTA 18 MG CR-TABS 1 po q a.m. METHYLPHENID ATE HCL 27568941956 No Longer Active Checo Conklin MD Active AMBIEN 5 MG TAB 1 po qHS PRN Insomnia ZOLPIDEM TARTRATE 10250227997 Active Checo Conklin MD Active TRAZODONE HCL 100 MG TAB 0.5 to 1 po qHS PRN Insomnia TRAZODONE HCL 24247032303 No Longer Active Checo Conklin MD Acti ve FIORICET 325-50-40 MG TAB 1 tablet by mouth four times daily as needed [id number] 00484237574 No Longer Active Checo Conklin MD Active PHENERGAN CREAM* 25mg applied to wrist q6hr PRN Nausea PHENERGAN CREAM* No Longer Active Checo Conklin MD A ctive FLONASE 50 MCG/ACT SUSP 1 spray each nostril am and hs FLUTICASONE PROPIONATE 21750882122 No Longer Active Checo Conklin MD Activ e ANTIPYRINE-BENZOCAINE 5.4-1.4 % SOLN 1-2 drops in affected ear BENZOCAINE-ANTIPYRINE 37179537007 No Longer Active Checo Conklin MD Active CEFDINIR 300 MG CAPS 1 po bid CEFDINIR 04310807 120 No Longer Active Checo Conklin MD Active PREDNISONE 20 MG TAB 2 tabs daily for 3 days, 1 t ab daily for 3 days, 1/2 tab daily for 2 days PREDNISONE 09116970939 No Longer Active Aracelis Conklin MD Active AZITHROMYCIN 250 MG TABS 2 po qd x 1 day, then 1 po qd x 4 days AZITHROMYCIN 28758880762 No Longer Active Checo Conklin MD Active PREDNISONE 20 MG TAB 2 tabs daily for 3 days, 1 t ab daily for 3 days, 1/2 tab daily for 2 days PREDNISONE 79254494221 No Longer Active Checo Conklin MD Active ZITHROMAX Z-KARTHIK 250 MG TABS 2 today, then 1 daily for 4 days 201 09/18/28 AZITHROMYCIN 29040778382 No Longer Active Paul Hamlin MD Active FOCALIN XR 10 MG [id number] 1 po q a.m. D EXMETHYLPHENIDATE HCL 31954914014 No Longer Active Paul Hamlin MD Activ e PERCOCET 10-325 MG TABS 1 tablet every 6 hours as needed for pain OXYCODONE-ACETAMINOPHEN 96604598768 No Longer Active Paul Hamlin MD Active LORTAB 5 5-500 MG TABS 1/2 to 1 tablet by mouth flaquito ry 4 hours as needed for pain HYDROCODONE-ACETAMINOPHEN 57054599549 No Longer Active Checo Conklin MD Active FOCALIN XR 15 MG [id number] 1 po q a.m. D EXMETHYLPHENIDATE HCL 38842067119 No Longer Active Checo Conklin MD Activ e ZOFRAN ODT 4 MG TBDP 1 po q6hr PRN Nausea ONDAN SETRON 07531313546 No Longer Active Checo Conklin MD Active PERCOCET 5-325 MG TABS 1 tablet by mouth every 6 hours as needed OXYCODONE-ACETAMINOPHEN 23880566655 No Longer Active Checo Conklin MD Active PYRIDIUM 200 MG TABS take 1 tab po TID prn urinary pain. 0 PHENAZOPYRIDINE HCL 61504736058 No Longer Active Checo Conklin MD Active FLUCONAZOLE 150 MG TABS take 1 tab po qday once 04/06 FLUCONAZOLE 55626917989 No Longer Active Dangelo Rangel MD Acti ve CIPRO 500 MG TAB 1 tablet by mouth twice daily CIPROFLOXACIN HCL 40605836918 No Longer Active Dangelo Rangel MD Active PYRIDIUM 200 MG TABS take 1 tab po TID prn urinary pain. 0 PYRIDIUM 200 MG TABS 5618892 PHENAZOPYRIDINE HCL Inactive PERCOCET 5-325 MG TABS 1 tablet by mouth every 6 hours as needed PERCOCET 5-325 MG TABS 9679266 OXYCODONE-ACETAMINOPHEN I nactive ZOFRAN ODT 4 MG TBDP 1 po q6hr PRN Nausea ZOFRAN ODT 4 MG TBDP 860815 ONDANSETRON Inactive FOCALIN XR 15 MG [id number] 1 po q a.m. F OCALIN XR 15 MG [id number] DEXMETHYLPHENIDATE HCL Inactive LORTAB 5 5-500 MG TABS 1/2 to 1 tablet by mouth flaquito ry 4 hours as needed for pain LORTAB 5 5-500 MG TABS HYDROCODONE-A CETAMINOPHEN Inactive PERCOCET 10-325 MG TABS 1 tablet every 6 hours as needed for pain PERCOCET 10-325 MG TABS 3638622 OXYCODONE-ACETAMINOPHEN Inactive FOCALIN XR 10 MG [id number] 1 po q a.m. F OCALIN XR 10 MG [id number] DEXMETHYLPHENIDATE HCL Inactive CEFDINIR 300 MG CAPS [...] PRN Insomnia TRAZODONE HCL 100 MG TAB 691306 TRAZODONE HCL Inactive CONCERTA 18 MG CR-TABS [...] s prn cough HYDROCODONE-ACETAMINOPHEN 5-325 MG TABS 149746 HYDROCODONE-ACETAMINOPHEN Inactive PHENAZOPYRIDINE HCL 200 MG TABS take 1 tab po TID for bladder pa in PHENAZOPYRIDINE HCL 200 MG TABS 4856487 PHENAZOPYRIDINE HCL Inactive HYDROCODONE-ACETAMINOPHEN 5-325 MG TABS 1 po q 6hr PRN Pain 2013 HYDROCODONE-ACETAMINOPHEN 5-325 MG TABS 390073 HYDROCODONE-ACETAMINOPHEN Inactive CELEXA 20 MG TABS 1 tablet by mouth daily CELEXA 20 MG TABS 495742 CITALOPRAM HYDROBROMIDE Inactive REGLAN 10 MG TAB 1 po TID PRN Nausea REGLAN 10 MG TAB 640319 METOCLOPRAMIDE HCL Inactive LAMISIL 250 MG TAB 1 po qd LAMISIL 250 MG TAB 307531 TERBINAFINE HCL Inactive DICLOFENAC SODIUM 75 MG TBEC 1 tablet by mouth twice daily P RN Knee pain DICLOFENAC SODIUM 75 MG TBEC 121315 DICLOFENAC S ODIUM Inactive METOCLOPRAMIDE HCL 10 MG ORAL TABS take one PO tid PRN nausea 20 29/12/14 METOCLOPRAMIDE HCL 10 MG ORAL TABS 545511 METOCLOPRAMID E HCL Inactive TERBINAFINE HCL 250 MG ORAL TABS take one table PO one time abran y TERBINAFINE HCL 250 MG ORAL TABS 803294 TERBINAFINE HCL Inactive BUPROPION HCL ER (SR) 100 MG ORAL [id number] take one t ablet by mouth one time daily for one week then take 1 two times daily BUPROPION HCL ER (SR) 100 MG ORAL [id number] BUPROPION HCL Inacti ve TRAVEL SICKNESS 25 MG ORAL CHEW chew and swallow one t ablet every 6 hours as needed TRAVEL SICKNESS 25 MG ORAL CHEW 043036 MECLIZINE HCL Inactive SUMATRIPTAN SUCCINATE 100 MG ORAL TABS Take one PRN for migrane SUMATRIPTAN SUCCINATE 100 MG ORAL TABS 439157 SUMATRIPT AN SUCCINATE Inactive COMPRO 25 MG RECTAL SUPP insert or apply one supposit ory rectally as directed every 12 hours as needed for nausea COMP RO 25 MG RECTAL SUPP 734625 PROCHLORPERAZINE Inactive ONDANSETRON [address] one tablet on tongue and allow to dissolve every 6 hours as needed for vomitting ON DANSETRON 8 MG ORAL TBDP 171413 ONDANSETRON Inactive HYDROCODONE-ACETAMINOPHEN 5-325 MG TABS 0.5 to 1 tab b y mouth every 6 hours as needed HYDROCODONE-ACETAMINOPHEN 5-325 MG TABS 8 11036 HYDROCODONE-ACETAMINOPHEN Inactive BACTRIM DS 800-160 MG TAB 1 tab by mouth twice daily 2 BACTRIM DS 800-160 MG TAB 409513 TRIMETHOPRIM-SULFAMETHOXAZOLE Inac tive DIFLUCAN 150 MG TAB 1 tablet by mouth if needed, hold until symptoms start DIFLUCAN 150 MG TAB 19760325 FLUCONAZOLE Inactive IBUPROFEN 800 MG TABS 1 tab every 8 hours with food 31/03/21 IBUPROFEN 800 MG TABS 865122 IBUPROFEN Inactive HYDROCODONE-ACETAMINOPHEN 5-325 MG TABS 1 tab by mouth every 6 hours as needed HYDROCODONE-ACETAMINOPHEN 5-325 MG TABS 765509 HYDROCODONE-ACETAMINOPHEN Inactive BACTROBAN 2 % CREAM Apply to affected area BID for up to 10 days BACTROBAN 2 % CREAM 218116 MUPIROCIN CALCIUM Inactive MAGNESIUM CITRATE 1.745 GM/30ML ORAL SOLN 150ml po BID PRN C onstipation MAGNESIUM CITRATE 1.745 GM/30ML ORAL SOLN 718799 0 MAGNESIUM CITRATE Inactive DIFLUCAN 150 MG TAB 1 tablet by mouth qod DIFLUCAN 150 MG TAB 257224 FLUCONAZOLE Inactive BACTRIM DS 800-160 MG TAB 1 tab by mouth twice daily 2 BACTRIM DS 800-160 MG TAB 985808 TRIMETHOPRIM-SULFAMETHOXAZOLE Inac tive CLARITIN 10 MG TAB 1 tablet by mouth daily as needed for allergi es CLARITIN 10 MG TAB 198789 LORATADINE Inactive FLUTICASONE PROPIONATE 50 MCG/ACT NASAL SUSP 2 sprays/ nostril qd PRN Congestion/Allergies FLUTICASONE PROPION ATE 50 MCG/ACT NASAL SUSP 7513372 FLUTICASONE PROPIONATE Inactive CIPRO 500 MG TAB 1 tablet by mouth twice daily CIPRO 500 MG TAB 012797 CIPROFLOXACIN HCL Inactive FLUCONAZOLE 150 MG TABS take 1 tab po qday once 04/06 FLUCONAZOLE 150 MG TABS 276009 FLUCONAZOLE Inactive ZITHROMAX Z-KARTHIK 250 MG TABS 2 today, then 1 daily for 4 days 201 09/18/28 ZITHROMAX Z-KARTHIK 250 MG TABS 0487763 AZITHROMYCIN Inac tive PREDNISONE 20 MG TAB 2 tabs daily for 3 days, 1 t ab daily for 3 days, 1/2 tab daily for 2 days PREDNISONE 20 MG TAB 800445 PREDNISON E Inactive AZITHROMYCIN 250 MG TABS 2 po qd x 1 day, then 1 po qd x 4 days AZITHROMYCIN 250 MG TABS 7815464 AZITHROMYCIN Inactiv e PREDNISONE 20 MG TAB 2 tabs daily for 3 days, 1 t ab daily for 3 days, 1/2 tab daily for 2 days PREDNISONE 20 MG TAB 617600 PREDNISON E Inactive CEFDINIR 300 MG CAPS by mouth twice a day CEFDINIR 300 MG CAPS 061163 CEFDINIR Inactive TRIAMCINOLONE ACETONIDE 0.1 % OINT Apply to affected a reas TID for up to 2 weeks TRIAMCINOLONE ACETONIDE 0.1 % OINT 688760 6 TRIAMCINOLONE ACETONIDE Inactive PREDNISONE 20 MG TAB 2 tabs daily for 3 days, 1 t ab daily for 3 days, 1/2 tab daily for 2 days PREDNISONE 20 MG TAB 196321 PREDNISON E Inactive BACTRIM DS 800-160 MG TABS 1 po BID x 7 days 0 BACTRIM DS 800-160 MG TABS 198210 SULFAMETHOXAZOLE-TRIMETHOPRIM Inactive CIPRO 500 MG TAB 1 tablet by mouth twice daily CIPRO 500 MG TAB 947608 CIPROFLOXACIN HCL Inactive AZITHROMYCIN 250 MG TABS 2 po qd x 1 day, then 1 po qd x 4 days AZITHROMYCIN 250 MG TABS 2568399 AZITHROMYCIN Inactiv e FLAGYL 500 MG TAB 1 tablet by mouth bid FLAGYL 500 MG TAB 682227 METRONIDAZOLE Inactive AZITHROMYCIN 250 MG TABS 2 po qd x 1 day, then 1 po qd x 4 days AZITHROMYCIN 250 MG TABS 4237813 AZITHROMYCIN Inactiv e AMOXICILLIN 500 MG ORAL CAPS 2 po BID x 10 days 09/12 AMOXICILLIN 500 MG ORAL CAPS 197811 AMOXICILLIN Inactive Immunizations Vaccine Administration Date Value [...] Report: CBC W/DIFF - Hematology hemoglobin, blood 14.5 g/dL 12.0-16.0 hematocrit, blood 42.8 % 36.0-46.0 mean corpuscular volume, RBC 97 fL 80-97 mean corpuscular hemoglobin, RBC 32.9 pg 27. 0-31.2 mean corpuscular hemoglobin concentration, RBC 33.8 G/DL % 31.8-35.4 red blood cell distribution width 13.0 % 11 .6-14.8 platelet count 248 10^3/MM^3 10*3/mm3 649-811 7466/05/27 erythrocyte (RBC) count 4.40 10^6/MM^3 10*6/mm3 4.04-5.4 8 lymphocytes as percent of blood leukocytes 25.1 % 20.5-51.1 monocytes as percent of blood leukocytes 7.6 % 1.7-9.3 neutrophils as percent of blood leukocytes 64.6 % 42.2-75.2 leukocyte count, blood 8.0 10^3/MM^3 10*3/mm3 4.6-10.2 Lab Report: CBC W/DIFF, Comp. Metabolic Panel, Qual [facility] [place] - Chemistry sodium, serum 139 mmol/L 169-327 2869/10/21 carbon dioxide, venous blood 33.5 mmol/L 21.0-32 [...] Report: CBC W/DIFF, Comp. Metabolic Panel, Qual [facility] [place] - Hematology neutrophils as percent of blood leukocytes 65.5 % 42.2-75.2 monocytes as percent of blood leukocytes 4.1 % 1.7-9.3 lymphocytes as percent of blood leukocytes 27.5 % 20.5-51.1 erythrocyte (RBC) count 4.53 10^6/MM^3 10*6/mm3 4.04-5.4 8 hemoglobin, blood 14.8 g/dL 12.0-16.0 leukocyte count, blood 7.9 10^3/MM^3 10*3/mm3 4.6-10.2 hematocrit, blood 43.7 % 36.0-46.0 mean corpuscular volume, RBC 97 fL 80-97 mean corpuscular hemoglobin, RBC 32.6 pg 27. 0-31.2 mean corpuscular hemoglobin concentration, RBC 33.8 G/DL % 31.8-35.4 red blood cell distribution width 13.8 % 11 .6-14.8 platelet count 248 10^3/MM^3 10*3/mm3 142-424 Lab Report: CBC-QUEST, COMPREHENSIVE MET ABOLIC PANEL, LIPID PANEL - Chemistry cholesterol, serum 192 mg/dL 282-509 3730/02/20 HDL cholesterol, serum 31 mg/dL > OR = 46 triglyceride, serum, fasting 138 mg/dL <150 LDL cholesterol, serum 133 MG/DL (CALC) mg/dL <130 cholesterol/HDL ratio, serum 6.2 (calc) < OR = 5.0 Lab Report: CBC-QUEST, COMPREHENSIVE MET ABOLIC PANEL, LIPID PANEL - Hematology mean corpuscular volume, RBC 96.5 fL 80.0-10 0.0 mean corpuscular hemoglobin, RBC 31.4 pg 27. 0-33.0 mean corpuscular hemoglobin concentration, RBC 32.6 G/DL % 32.0-36.0 red blood cell distribution width 13.5 % 11 .0-15.0 platelet count 218 THOUSAND/UL 10*3/mm3 036-834 7188/02/20 mean platelet volume 9.7 fL 7.5-12.5 leukocyte count, blood 8.7 THOUSAND/UL 10*3/mm3 3.8-10.8 erythrocyte (RBC) count 4.37 MILLION/UL 10*6/mm3 3.80-5. 10 hemoglobin, blood 13.7 g/dL 11.7-15.5 hematocrit, blood 42.2 % 35.0-45.0 Lab Report: Chlamydia/GC APTIMA/90628 - Lab chlamydia DNA probe NOT DETECTED NOT DETECTED Lab Report: Chlamydia/GC [facility]TIMA/69954 - Microbiology Neisseria gonorrhoeae DNA probe NOT DETECTED NO T DETECTED Lab Report: Comp. Metabolic Panel, Thyro id Stimulating Hormone (L), Eryt ... - Chemistry sodium, serum 137 mmol/L 388-876 4060/05/27 creatinine, serum 0.70 mg/dL 0.55-1.30 alanine aminotransferase (SGPT), serum 37 U/L 12-78 aspartate aminotransferase (SGOT), serum 31 U/L 15-37 calcium, serum 8.9 mg/dL 8.5-10.1 bilirubin, serum, total 1.10 mg/dL 0.00-1.00 TSH 2.59 m[iU]/mL 0.36-3.74 thyroxine, serum, free 0.97 ng/dL 0.76-1.46 carbon dioxide, venous blood 29.1 mmol/L 21.0-32 .0 potassium, serum 4.1 mmol/L 3.5-5.2 chloride, serum 103 mmol/L 98-107 blood glucose 96 mg/dL 65-110 urea nitrogen, blood 11 mg/dL 7-18 Lab Report: UADIP (AUTO) - Chemistry protein, [...] AUTO - Chemis try RBC, urine, dipstick 2+ Negative protein, total urine random Negative mg/dL Negative Lab Report: UADIP W/MICRO, AUTO - Urinal ysis glucose, urine, semiquantitative Negative Neg ative urobilinogen, urine, semiquantitative (dipstick) 0.2 Normal leukocyte esterase, urine, by dipstick Negative Negative nitrite, urine, semiquantitative Negative Neg ative appearance, urine Clear Clear specific gravity, urine >=1.030 1.000-1.030 pH, urine, semiquantitative 5.5 5.0-8.5 urine color Yellow Colorless;Lightyellow;St raw;Yellow ketones, urine, by test strip Negative Negati ve bilirubin, urine Negative Negative Encounters Code Encounter Date Provider Facility CPT-05538 Level 3 Est. Patient 11:29:55 CDT Checo Conklin MD [facility] CPT-19781 Level 4 Est. Patient 11:08:12 [employer] Checo Conklin MD [facility] CPT-65761 Level 4 Est. Patient 16:06:48 [employer] Checo Conklin MD [facility] CPT-78474 Level 3 Est. Patient 09:11:49 CDT Efren almendarez [facility] CPT-15181 Level 2 Est. Patient 19:53:27 CDT Tanner hill MD [facility] CPT-42642 Level 3 Est. Patient 09:15:34 CDT Efren almendarez [facility] CPT-41511 Level 3 Est. Patient 11:28:51 [employer] Efren almendarez [facility]-88288 Level 4 Est. Patient 13:55:46 [employer] Checo Conklin MD [facility] CPT-40104 Level 4 Est. Patient 17:10:53 CDT Checo Conklin MD [facility] CPT-99537 Level 3 Est. Patient 15:56:22 CDT Checo Conklin MD [facility] CPT-31378 Level 3 Est. Patient 15:29:07 CDT Checo Conklin MD [facility] CPT-35055 Level 3 Est. Patient 14:38:41 CDT Checo Conklin MD [facility] CPT-26280 Level 3 Est. Patient 15:22:03 [employer] Thomas reynolds DO [facility] CPT-79543 Level 3 Est. Patient 13:34:17 [employer] Checo Conklin MD [facility] CPT-12352 Level 3 Est. Patient 12:29:32 CDT Dangelo arroyo MD [facility] CPT-96816 Level 3 Est. Patient 16:53:02 CDT Checo Conklin MD [facility] CPT-20165 Level 3 Est. Patient 16:37:13 CDT Checo Conklin MD [facility] CPT-22058 Level 3 Est. Patient 16:16:59 CDT Paul Hamlin MD [facility] CPT-25249 Level 3 Est. Patient 14:20:13 CDT Dangelo arroyo MD [facility] CPT-64461 Level 4 Est. Patient 11:29:33 CDT Checo Conklin MD [facility] CPT-38611 Level 3 Est. Patient 17:08:31 CDT Checo Conklin MD [facility] CPT-02694 Level 3 Est. Patient 16:50:42 [employer] Checo Conklin MD [facility] CPT-53630 Level 4 Est. Patient 09:26:08 [employer] Checo Conklin MD [facility] CPT-79399 Level 3 Est. Patient 11:37:10 CDT Checo Conklin MD [facility] CPT-19353 Level 4 Est. Patient 14:07:38 CDT Checo Conklin MD [facility] CPT-68063 Level 3 Est. Patient 09:54:41 CDT Checo Conklin MD [facility] CPT-37406 Level 3 Est. Patient 11:10:54 CDT Paul Hamlin MD [facility] CPT-19259 Level 3 Est. Patient 14:16:56 [employer] Checo Conklin MD [facility] CPT-44345 Level 3 Est. Patient 11:04:11 [employer] Checo Conklin MD [facility] CPT-93612 Level 3 Est. Patient 17:09:26 CDT Dangelo arroyo MD [facility] CPT-94756 Level 3 Est. Patient 16:54:37 CDT Checo Conklin MD [facility] Procedures Code Procedure Name Date Entry Date Standard Desc ription CPT-28844 UA w micro - LAB USE ONLY 17:06:46 CDT 2015 CPT-97926 [facility] Qual - LAB USE ONLY 17:06:46 CDT 05/06 CPT-64962 CMP - LAB USE ONLY 17:06:46 CDT CPT-70197 CBC with Diff - LAB USE ONLY 17:06:45 CDT 2 CPT-16287 Venipuncture Draw Fee 17:06:45 CDT CPT-LR Lesion Removal 19:53:27 CDT CPT-OV Office Visit 11:31:28 CDT CPT-86960 Tubersol 09:39:29 CDT CPT-J2550 Phenergan 25 mg (Promethazine) 13:59:02 [employer] CPT-J1885 Toradol 60 mg (Ketorolac) 13:59:02 [employer] 2012
--- OUTSIDE RECORDS SUMMARY | 2019-09-29 01:25 | XMS REPORT | Clinical Summary ---
Author Author Admin, Bethany Ayala [facility] Address Unknown Phone Unavailable Allergies, Adverse [...] Vaginitis and vulvovaginitis, unspecified Pharyngitis 462 Active Efren Medel APRN Acute pharyngitis Cough 786.2 Active Efren Medel APRN Cough DIABETES ICD-V18.0 Inactive Checo Conklin MD 201 08/27/26 CONCUSSION ICD-850.9 Inactive Checo Joshua FH BREAST CANCER ICD-V16.3 Inactive Checo Joshua ABDOMINAL PAIN RIGHT LOWER QUADRANT ICD-789.03 Inactive Checo Conklin MD UTI ICD-599.0 Inactive Checo Conklin MD 2013 PHARYNGITIS ICD-462 Inactive Checo Conklin MD OTITIS MEDIA-RIGHT ICD-382.9 Inactive Checo Conklin MD HEADACHE, TENSION ICD-307.81 Inactive Checo Conklin MD Insomnia ICD-780.52 Inactive [...] 1 tablet by mouth qod FLUCONA ZOLE 06240141860 Active Jillina Frazell CASH MANAGEMENT CLERK Active CLARITIN 10 MG TAB 1 tablet by mouth daily as needed for allergies LORATADINE 04572845808 Active Jillina Frazell CASH MANAGEMENT CLERK Active AZITHROMYCIN 250 MG TABS 2 po qd x 1 day, then 1 po qd x 4 days AZITHROMYCIN 43448512205 No Longer Active Jillina Frazell CASH MANAGEMENT CLERK Active FLAGYL 500 MG TAB 1 tablet by mouth bid METRONI DAZOLE 98546641267 No Longer Active Checo Conklin MD Active FOCALIN XR 10 MG ORAL [id number] 1 po q a.m. DEX METHYLPHENIDATE HCL 41037467252 Active Checo Conklin MD Active MAGNESIUM CITRATE 1.745 GM/30ML ORAL SOLN 150ml po BID PRN C onstipation MAGNESIUM CITRATE 43525948138 No Longer Active Checo Conklin MD Active BACTROBAN 2 % CREAM Apply to affected area BID for up to 10 days MUPIROCIN CALCIUM 36540560096 No Longer Active Checo Conklin MD Active HYDROCODONE-ACETAMINOPHEN 5-325 MG TABS 1 tab by mouth every 6 hours as needed HYDROCODONE-ACETAMINOPHEN 70911760598 No Longer Activ e Checo Conklin MD Active IBUPROFEN 800 MG TABS 1 tab every 8 hours with food 31/03/21 IBUPROFEN 92988553547 No Longer Active Checo Coknlin MD Activ e DIFLUCAN 150 MG TAB 1 tablet by mouth if needed, hold until symptoms start FLUCONAZOLE 20287744233 No Longer Active Checo Ortiz MD Active BACTRIM DS 800-160 MG TAB 1 tab by mouth twice daily 2 TRIMETHOPRIM-SULFAMETHOXAZOLE 20662575063 No Longer Active Corry leong LPN Active MIRALAX PACK 1 po qd PRN Constipation POLYETHYL JOEL GLYCOL 3350 33419328160 Active Checo Conklin MD Active HYDROCODONE-ACETAMINOPHEN 5-325 MG TABS 0.5 to 1 tab b y mouth every 6 hours as needed HYDROCODONE-ACETAMINOPHEN 20531787825 No Longer Active Checo Conklin MD Active ONDANSETRON [address] one tablet on tongue and allow to dissolve every 6 hours as needed for vomitting ONDANSETRO N 90013048783 No Longer Active Checo Conklin MD Active COMPRO 25 MG RECTAL SUPP insert or apply one supposit ory rectally as directed every 12 hours as needed for nausea PROCHLORPERA ZINE 16960234921 No Longer Active Checo Conklin MD Active SUMATRIPTAN SUCCINATE 100 MG ORAL TABS Take one PRN for migrane SUMATRIPTAN SUCCINATE 49665478535 No Longer Active Checo Conklin MD Active TRAVEL SICKNESS 25 MG ORAL CHEW chew and swallow one t ablet every 6 hours as needed MECLIZINE HCL 94775871795 No Longer Active Joe Conklin MD Active BUPROPION HCL ER (SR) 100 MG ORAL [id number] take one t ablet by mouth one time daily for one week then take 1 two times daily BUPROPION HCL 54886833485 No Longer Active Checo Conklin MD Activ e TERBINAFINE HCL 250 MG ORAL TABS take one table PO one time abran y TERBINAFINE HCL 47988884049 No Longer Active Checo Conklin MD Active METOCLOPRAMIDE HCL 10 MG ORAL TABS take one PO tid PRN nausea 20 29/12/14 METOCLOPRAMIDE HCL 96090329382 No Longer Active Checo Conklin MD Active DICLOFENAC SODIUM 75 MG TBEC 1 tablet by mouth twice daily P RN Knee pain DICLOFENAC SODIUM 84370845017 No Longer Active Checo Conklin MD Active LAMISIL 250 MG TAB 1 po qd TERBINAFINE HCL 548 67766290 No Longer Active Checo Conklin MD Active REGLAN 10 MG TAB 1 po TID PRN Nausea METOCLOPRA MIDE HCL 06046578989 No Longer Active Checo Conklin MD Active CELEXA 20 MG TABS 1 tablet by mouth daily CITALOPRAM HYDROBROMIDE 82481003636 No Longer Active Checo Conklin MD Activ e AZITHROMYCIN 250 MG TABS 2 po qd x 1 day, then 1 po qd x 4 days AZITHROMYCIN 98691480136 No Longer Active Checo Conklin MD Active HYDROCODONE-ACETAMINOPHEN 5-325 MG TABS 1 po q 6hr PRN Pain 2013 HYDROCODONE-ACETAMINOPHEN 77594366777 No Longer Active Lenora Conklin MD Active PHENAZOPYRIDINE HCL 200 MG TABS take 1 tab po TID for bladder pa in PHENAZOPYRIDINE HCL 00910440618 No Longer Active Checo Joshua Active CIPRO 500 MG TAB 1 tablet by mouth twice daily CIPROFLOXACIN HCL 64011189383 No Longer Active Dangelo Rangel MD Active HYDROCODONE-ACETAMINOPHEN 5-325 MG TABS 1/2 to 1 po q 4 hour s prn cough HYDROCODONE-ACETAMINOPHEN 15050134780 No Longer Activ e Dangelo Rangel MD Active BACTRIM DS 800-160 MG TABS 1 po BID x 7 days 0 SULFAMETHOXAZOLE-TRIMETHOPRIM 81105435628 No Longer Active Checo Conklin MD Active PREDNISONE 20 MG TAB 2 tabs daily for 3 days, 1 t ab daily for 3 days, 1/2 tab daily for 2 days PREDNISONE 68186259823 No Longer Active Checo Conklin MD Active TRIAMCINOLONE ACETONIDE 0.1 % OINT Apply to affected a reas TID for up to 2 weeks TRIAMCINOLONE ACETONIDE 94263041283 No Longer A ctive Checo Conklin MD Active CEFDINIR 300 MG CAPS by mouth twice a day CEFDI JAZZY 68670447807 No Longer Active Dangelo Rangel MD Active BUPROPION HCL (SMOKING DETER) 150 MG [id number] 1 a day for 1 week then 1 twice a day BUPROPION HCL (SMOKING DETER) 19955101763 No Lo nger Active Checo Conklin MD Active SIMVASTATIN 20 MG TABS 1 po qd SIMVASTATIN 0919820229 5 Active Checo Conklin MD Active CHANTIX STARTING MONTH KARTHIK 0.5 MG X 11 & 1 MG X 42 TAB S 0.5mg daily for 3 days, then 0.5mg BID for 4 days, then 1mg BID VARENICLINE TARTRATE 74618668483 No Longer Active Checo Conklin MD Activ e XANAX 0.5 MG TABS 1 po BID PRN anxiety ALPRAZOLAM 04712434188 Active Checo Conklin MD Active CONCERTA 18 MG CR-TABS 1 po q a.m. METHYLPHENID ATE HCL 77436252429 No Longer Active Checo Conklin MD Active AMBIEN 5 MG TAB 1 po qHS PRN Insomnia ZOLPIDEM TARTRATE 63129814726 Active Checo Conklin MD Active TRAZODONE HCL 100 MG TAB 0.5 to 1 po qHS PRN Insomnia TRAZODONE HCL 54386724593 No Longer Active Checo Conklin MD Acti ve FIORICET 325-50-40 MG TAB 1 tablet by mouth four times daily as needed [id number] 15939579836 No Longer Active Checo Conklin MD Active PHENERGAN CREAM* 25mg applied to wrist q6hr PRN Nausea PHENERGAN CREAM* No Longer Active Checo Conklin MD A ctive FLONASE 50 MCG/ACT SUSP 1 spray each nostril am and hs FLUTICASONE PROPIONATE 01315446950 No Longer Active Checo Conklin MD Activ e ANTIPYRINE-BENZOCAINE 5.4-1.4 % SOLN 1-2 drops in affected ear BENZOCAINE-ANTIPYRINE 35764706863 No Longer Active Checo Conklin MD Active CEFDINIR 300 MG CAPS 1 po bid CEFDINIR 77472107 120 No Longer Active Checo Conklin MD Active PREDNISONE 20 MG TAB 2 tabs daily for 3 days, 1 t ab daily for 3 days, 1/2 tab daily for 2 days PREDNISONE 27063122408 No Longer Active Aracelis Conklin MD Active AZITHROMYCIN 250 MG TABS 2 po qd x 1 day, then 1 po qd x 4 days AZITHROMYCIN 41036413408 No Longer Active Checo Conklin MD Active PREDNISONE 20 MG TAB 2 tabs daily for 3 days, 1 t ab daily for 3 days, 1/2 tab daily for 2 days PREDNISONE 26932184383 No Longer Active Checo Conklin MD Active ZITHROMAX Z-KARTHIK 250 MG TABS 2 today, then 1 daily for 4 days 201 09/18/28 AZITHROMYCIN 70089844102 No Longer Active Paul Hamlin MD Active FOCALIN XR 10 MG [id number] 1 po q a.m. D EXMETHYLPHENIDATE HCL 48635832283 No Longer Active Paul Hamlin MD Activ e PERCOCET 10-325 MG TABS 1 tablet every 6 hours as needed for pain OXYCODONE-ACETAMINOPHEN 88808323871 No Longer Active Paul Hamlin MD Active LORTAB 5 5-500 MG TABS 1/2 to 1 tablet by mouth flaquito ry 4 hours as needed for pain HYDROCODONE-ACETAMINOPHEN 15997597353 No Longer Active Checo Conklin MD Active FOCALIN XR 15 MG [id number] 1 po q a.m. D EXMETHYLPHENIDATE HCL 68866023644 No Longer Active Checo Conklin MD Activ e ZOFRAN ODT 4 MG TBDP 1 po q6hr PRN Nausea ONDAN SETRON 48117935780 No Longer Active Checo Conklin MD Active PERCOCET 5-325 MG TABS 1 tablet by mouth every 6 hours as needed OXYCODONE-ACETAMINOPHEN 04409986248 No Longer Active Checo Conklin MD Active PYRIDIUM 200 MG TABS take 1 tab po TID prn urinary pain. 0 PHENAZOPYRIDINE HCL 18169972381 No Longer Active Checo Conklin MD Active FLUCONAZOLE 150 MG TABS take 1 tab po qday once 04/06 FLUCONAZOLE 45173928643 No Longer Active Dangelo Rangel MD Acti ve CIPRO 500 MG TAB 1 tablet by mouth twice daily CIPROFLOXACIN HCL 97574617625 No Longer Active Dangelo Rangel MD Active PYRIDIUM 200 MG TABS take 1 tab po TID prn urinary pain. 0 PYRIDIUM 200 MG TABS 6258862 PHENAZOPYRIDINE HCL Inactive PERCOCET 5-325 MG TABS 1 tablet by mouth every 6 hours as needed PERCOCET 5-325 MG TABS 2610373 OXYCODONE-ACETAMINOPHEN I nactive ZOFRAN ODT 4 MG TBDP 1 po q6hr PRN Nausea ZOFRAN ODT 4 MG TBDP 754717 ONDANSETRON Inactive FOCALIN XR 15 MG [id number] 1 po q a.m. F OCALIN XR 15 MG [id number] DEXMETHYLPHENIDATE HCL Inactive LORTAB 5 5-500 MG TABS 1/2 to 1 tablet by mouth flaquito ry 4 hours as needed for pain LORTAB 5 5-500 MG TABS HYDROCODONE-A CETAMINOPHEN Inactive PERCOCET 10-325 MG TABS 1 tablet every 6 hours as needed for pain PERCOCET 10-325 MG TABS 4928052 OXYCODONE-ACETAMINOPHEN Inactive FOCALIN XR 10 MG [id number] 1 po q a.m. F OCALIN XR 10 MG [id number] DEXMETHYLPHENIDATE HCL Inactive CEFDINIR 300 MG CAPS 1 po bid CEFDINIR 300 MG CAPS 20 0346 CEFDINIR Inactive ANTIPYRINE-BENZOCAINE 5.4-1.4 % SOLN 1-2 drops in affected ear ANTIPYRINE-BENZOCAINE 5.4-1.4 % SOLN 145480 BENZOCAINE-ANTIPYRINE I nactive FLONASE 50 MCG/ACT SUSP [...] PRN Insomnia TRAZODONE HCL 100 MG TAB 136772 TRAZODONE HCL Inactive CONCERTA 18 MG CR-TABS [...] s prn cough HYDROCODONE-ACETAMINOPHEN 5-325 MG TABS 972221 HYDROCODONE-ACETAMINOPHEN Inactive PHENAZOPYRIDINE HCL 200 MG TABS take 1 tab po TID for bladder pa in PHENAZOPYRIDINE HCL 200 MG TABS 6954827 PHENAZOPYRIDINE HCL Inactive HYDROCODONE-ACETAMINOPHEN 5-325 MG TABS 1 po q 6hr PRN Pain 2013 HYDROCODONE-ACETAMINOPHEN 5-325 MG TABS 220357 HYDROCODONE-ACETAMINOPHEN Inactive CELEXA 20 MG TABS 1 tablet by mouth daily CELEXA 20 MG TABS 271752 CITALOPRAM HYDROBROMIDE Inactive REGLAN 10 MG TAB 1 po TID PRN Nausea REGLAN 10 MG TAB 531011 METOCLOPRAMIDE HCL Inactive LAMISIL 250 MG TAB 1 po qd LAMISIL 250 MG TAB 676881 TERBINAFINE HCL Inactive DICLOFENAC SODIUM 75 MG TBEC 1 tablet by mouth twice daily P RN Knee pain DICLOFENAC SODIUM 75 MG TBEC 177019 DICLOFENAC S ODIUM Inactive METOCLOPRAMIDE HCL 10 MG ORAL TABS take one PO tid PRN nausea 20 29/12/14 METOCLOPRAMIDE HCL 10 MG ORAL TABS 022298 METOCLOPRAMID E HCL Inactive TERBINAFINE HCL 250 MG ORAL TABS take one table PO one time abran y TERBINAFINE HCL 250 MG ORAL TABS 098357 TERBINAFINE HCL Inactive BUPROPION HCL ER (SR) 100 MG ORAL [id number] take one t ablet by mouth one time daily for one week then take 1 two times daily BUPROPION HCL ER (SR) 100 MG ORAL [id number] BUPROPION HCL Inacti ve TRAVEL SICKNESS 25 MG ORAL CHEW chew and swallow one t ablet every 6 hours as needed TRAVEL SICKNESS 25 MG ORAL CHEW 327726 MECLIZINE HCL Inactive SUMATRIPTAN SUCCINATE 100 MG ORAL TABS Take one PRN for migrane SUMATRIPTAN SUCCINATE 100 MG ORAL TABS 836275 SUMATRIPT AN SUCCINATE Inactive COMPRO 25 MG RECTAL SUPP insert or apply one supposit ory rectally as directed every 12 hours as needed for nausea COMP RO 25 MG RECTAL SUPP 564990 PROCHLORPERAZINE Inactive ONDANSETRON [address] one tablet on tongue and allow to dissolve every 6 hours as needed for vomitting ON DANSETRON 8 MG ORAL TBDP 300931 ONDANSETRON Inactive HYDROCODONE-ACETAMINOPHEN 5-325 MG TABS 0.5 to 1 tab b y mouth every 6 hours as needed HYDROCODONE-ACETAMINOPHEN 5-325 MG TABS 8 27870 HYDROCODONE-ACETAMINOPHEN Inactive BACTRIM DS 800-160 MG TAB 1 tab by mouth twice daily 2 BACTRIM DS 800-160 MG TAB 019376 TRIMETHOPRIM-SULFAMETHOXAZOLE Inac tive DIFLUCAN 150 MG TAB 1 tablet by mouth if needed, hold until symptoms start DIFLUCAN 150 MG TAB 075343 FLUCONAZOLE Inactive IBUPROFEN 800 MG TABS 1 tab every 8 hours with food 31/03/21 IBUPROFEN 800 MG TABS 833281 IBUPROFEN Inactive HYDROCODONE-ACETAMINOPHEN 5-325 MG TABS 1 tab by mouth every 6 hours as needed HYDROCODONE-ACETAMINOPHEN 5-325 MG TABS 256731 HYDROCODONE-ACETAMINOPHEN Inactive BACTROBAN 2 % CREAM Apply to affected area BID for up to 10 days BACTROBAN 2 % CREAM 867439 MUPIROCIN CALCIUM Inactive MAGNESIUM CITRATE 1.745 GM/30ML ORAL SOLN 150ml po BID PRN C onstipation MAGNESIUM CITRATE 1.745 GM/30ML ORAL SOLN 000566 0 MAGNESIUM CITRATE Inactive CIPRO 500 MG TAB 1 tablet by mouth twice daily CIPRO 500 MG TAB 220748 CIPROFLOXACIN HCL Inactive FLUCONAZOLE 150 MG TABS take 1 tab po qday once 04/06 FLUCONAZOLE 150 MG TABS 882610 FLUCONAZOLE Inactive ZITHROMAX Z-KARTHIK 250 MG TABS 2 today, then 1 daily for 4 days 201 09/18/28 ZITHROMAX Z-KARTHIK 250 MG TABS 6649007 AZITHROMYCIN Inac tive PREDNISONE 20 MG TAB 2 tabs daily for 3 days, 1 t ab daily for 3 days, 1/2 tab daily for 2 days PREDNISONE 20 MG TAB 484253 PREDNISON E Inactive AZITHROMYCIN 250 MG TABS 2 po qd x 1 day, then 1 po qd x 4 days AZITHROMYCIN 250 MG TABS 7966805 AZITHROMYCIN Inactiv e PREDNISONE 20 MG TAB 2 tabs daily for 3 days, 1 t ab daily for 3 days, 1/2 tab daily for 2 days PREDNISONE 20 MG TAB 714803 PREDNISON E Inactive CEFDINIR 300 MG CAPS by mouth twice a day CEFDINIR 300 MG CAPS 793326 CEFDINIR Inactive TRIAMCINOLONE ACETONIDE 0.1 % OINT Apply to affected a reas TID for up to 2 weeks TRIAMCINOLONE ACETONIDE 0.1 % OINT 858336 6 TRIAMCINOLONE ACETONIDE Inactive PREDNISONE 20 MG TAB 2 tabs daily for 3 days, 1 t ab daily for 3 days, 1/2 tab daily for 2 days PREDNISONE 20 MG TAB 848112 PREDNISON E Inactive BACTRIM DS 800-160 MG TABS 1 po BID x 7 days 0 BACTRIM DS 800-160 MG TABS 304768 SULFAMETHOXAZOLE-TRIMETHOPRIM Inactive CIPRO 500 MG TAB 1 tablet by mouth twice daily CIPRO 500 MG TAB 814889 CIPROFLOXACIN HCL Inactive AZITHROMYCIN 250 MG TABS 2 po qd x 1 day, then 1 po qd x 4 days AZITHROMYCIN 250 MG TABS 8947831 AZITHROMYCIN Inactiv e FLAGYL 500 MG TAB 1 tablet by mouth bid FLAGYL 500 MG TAB 505952 METRONIDAZOLE Inactive AZITHROMYCIN 250 MG TABS 2 po qd x 1 day, then 1 po qd x 4 days AZITHROMYCIN 250 MG TABS 4431494 AZITHROMYCIN Inactiv e Immunizations Vaccine Administration Date [...] ... - Chemistry sodium, serum 141 mmol/L 745-314 4348/01/26 carbon dioxide, venous blood 30.0 mmol/L 21.0-32 .0 potassium, serum 4.0 mmol/L 3.5-5.2 chloride, serum 105 mmol/L 98-107 blood glucose 85 mg/dL 65-110 urea nitrogen, blood 9 mg/dL 7-18 creatinine, serum 0.66 mg/dL 0.55-1.30 alanine aminotransferase (SGPT), serum 31 U/L 12-78 aspartate aminotransferase (SGOT), serum 21 U/L 15-37 calcium, serum 8.2 mg/dL 8.5-10.1 bilirubin, serum, total 1.10 mg/dL 0.00-1.00 cholesterol, serum 178 mg/dL 364-319 3731/01/26 triglyceride, serum, fasting 149 mg/dL 30-200 HDL [...] 5.0-8.5 Encounters Code Encounter Date Provider Facility CPT-71587 Level 3 Est. Patient 11:28:51 STEEL ERECTOR Efren almendarez APRN [facility] CPT-21697 Level 4 Est. Patient 13:55:46 STEEL ERECTOR Checo Conklin MD [facility] CPT-79349 Level 4 Est. Patient 17:10:53 CDT Checo Conklin MD [facility] CPT-82572 Level 3 Est. Patient 15:56:22 CDT Checo Conklin MD [facility] CPT-12288 Level 3 Est. Patient 15:29:07 CDT Checo Conklin MD [facility] CPT-29573 Level 3 Est. Patient 14:38:41 CDT Checo Conklin MD [facility] CPT-59832 Level 3 Est. Patient 15:22:03 STEEL ERECTOR Thomas reynolds DO [facility] CPT-80486 Level 3 Est. Patient 13:34:17 STEEL ERECTOR Checo Conklin MD [facility] CPT-26289 Level 3 Est. Patient 12:29:32 CDT Dangelo arroyo MD [facility] CPT-11592 Level 3 Est. Patient 16:53:02 CDT Checo Conklin MD [facility] CPT-01284 Level 3 Est. Patient 16:37:13 CDT Checo Conklin MD [facility] CPT-23594 Level 3 Est. Patient 16:16:59 CDT Paul Hamlin MD [facility] CPT-46627 Level 3 Est. Patient 14:20:13 CDT Dangelo arroyo MD [facility] CPT-76873 Level 4 Est. Patient 11:29:33 CDT Checo Conklin MD [facility] CPT-03756 Level 3 Est. Patient 17:08:31 CDT Checo Conklin MD [facility] CPT-61361 Level 3 Est. Patient 16:50:42 STEEL ERECTOR Checo Conklin MD [facility] CPT-61310 Level 4 Est. Patient 09:26:08 STEEL ERECTOR Checo Conklin MD [facility] CPT-93708 Level 3 Est. Patient 11:37:10 CDT Checo Conklin MD [facility] CPT-77134 Level 4 Est. Patient 14:07:38 CDT Checo Conklin MD [facility] CPT-67818 Level 3 Est. Patient 09:54:41 CDT Checo Conklin MD [facility] CPT-00059 Level 3 Est. Patient 11:10:54 CDT Paul Hamlin MD [facility] CPT-73602 Level 3 Est. Patient 14:16:56 STEEL ERECTOR Checo Conklin MD [facility] CPT-56176 Level 3 Est. Patient 11:04:11 STEEL ERECTOR Checo Conklin MD [facility] CPT-17146 Level 3 Est. Patient 17:09:26 CDT Dangelo arroyo MD [facility] CPT-50561 Level 3 Est. Patient 16:54:37 CDT Checo Conklin MD [facility] Procedures Code Procedure Name Date Entry Date Standard Desc ription CPT-OV Office Visit 11:31:28 CDT CPT-13383 Tubersol 09:39:29 CDT CPT-J2550 Phenergan 25 mg (Promethazine) 13:59:02 STEEL ERECTOR CPT-J1885 Toradol 60 mg (Ketorolac) 13:59:02 STEEL ERECTOR 2012
--- OUTSIDE RECORDS SUMMARY | 2019-09-29 01:25 | XMS REPORT | Clinical Summary ---
Author Author Admin, Bethany Gonzales Organization [employer] Address Unknown Phone Unavailable Allergies, Adverse Reactions, [...] UTI ICD-599.0 Inactive Checo Conklin MD 2013 Onychomycosis, toenails ICD-110.1 Inactive Aracelsi Conklin MD Hypoglycemia, unspecified ICD-251.2 Inactive Checo [...] MD Pharyngitis ICD-462 Inactive Checo Conklin MD OTITIS MEDIA-RIGHT ICD-382.9 Inactive Checo Conklin MD HEADACHE, TENSION ICD-307.81 Inactive Checo Conklin MD Cough ICD-786.2 Inactive [...] TABS 1.5 po qd PAROX ETINE HCL 97155196830 Active Checo Conklin MD Active FLUTICASONE PROPIONATE 50 MCG/ACT NASAL SUSP 2 sprays/ nostril qd PRN Congestion/Allergies FLUTICASONE PROPIONATE 9876432516 5 No Longer Active Checo Conklin MD Active AMOXICILLIN 500 MG ORAL CAPS 2 po BID x 10 days 09/12 AMOXICILLIN 52487217227 No Longer Active Checo Conklin MD Activ e MIRALAX ORAL POWD 8.5 to 17g po qd PRN Constipation POLYETHYLENE GLYCOL 3350 44821754962 Active Checo Conklin MD Active CLARITIN 10 MG TAB 1 tablet by mouth daily as needed for allergi es LORATADINE 99869728846 No Longer Active Checo Conklin MD Active BACTRIM DS 800-160 MG TAB 1 tab by mouth twice daily 2 TRIMETHOPRIM-SULFAMETHOXAZOLE 49661480401 No Longer Active Tanner Carrillo MD Active DIFLUCAN 150 MG TAB 1 tablet by mouth qod FLUCO NAZOLE 16096421849 No Longer Active Efren Medel APRN Active AZITHROMYCIN 250 MG TABS 2 po qd x 1 day, then 1 po qd x 4 days AZITHROMYCIN 12274264791 No Longer Active Efren Medel APRN Active FLAGYL 500 MG TAB 1 tablet by mouth bid METRONI DAZOLE 16804046727 No Longer Active Checo Conklin MD Active FOCALIN XR 10 MG ORAL [id number] 1 po q a.m. DEX METHYLPHENIDATE HCL 51139353254 Active Checo Conklin MD Active MAGNESIUM CITRATE 1.745 GM/30ML ORAL SOLN 150ml po BID PRN C onstipation MAGNESIUM CITRATE 37791850205 No Longer Active Checo Conklin MD Active BACTROBAN 2 % CREAM Apply to affected area BID for up to 10 days MUPIROCIN CALCIUM 31174784085 No Longer Active Checo Conklin MD Active HYDROCODONE-ACETAMINOPHEN 5-325 MG TABS 1 tab by mouth every 6 hours as needed HYDROCODONE-ACETAMINOPHEN 15174068236 No Longer Activ e Checo Conklin MD Active IBUPROFEN 800 MG TABS 1 tab every 8 hours with food 20 31/03/21 IBUPROFEN 01472652663 No Longer Active Checo Conklin MD Activ e DIFLUCAN 150 MG TAB 1 tablet by mouth if needed, hold until symptoms start FLUCONAZOLE 41281345143 No Longer Active Checo Ortiz MD Active BACTRIM DS 800-160 MG TAB 1 tab by mouth twice daily 2 TRIMETHOPRIM-SULFAMETHOXAZOLE 32100030963 No Longer Active Corry leong LPN Active HYDROCODONE-ACETAMINOPHEN 5-325 MG TABS 0.5 to 1 tab b y mouth every 6 hours as needed HYDROCODONE-ACETAMINOPHEN 02552805818 No Longer Active Checo Conklin MD Active ONDANSETRON [address] one tablet on tongue and allow to dissolve every 6 hours as needed for vomitting ONDANSETRO N 90966695895 No Longer Active Checo Conklin MD Active COMPRO 25 MG RECTAL SUPP insert or apply one supposit ory rectally as directed every 12 hours as needed for nausea PROCHLORPERA ZINE 81767060581 No Longer Active Checo Conklin MD Active SUMATRIPTAN SUCCINATE 100 MG ORAL TABS Take one PRN for migrane SUMATRIPTAN SUCCINATE 47637828706 No Longer Active Checo Conklin MD Active TRAVEL SICKNESS 25 MG ORAL CHEW chew and swallow one t ablet every 6 hours as needed MECLIZINE HCL 40365129761 No Longer Active Joe Conklin MD Active BUPROPION HCL ER (SR) 100 MG ORAL [id number] take one t ablet by mouth one time daily for one week then take 1 two times daily BUPROPION HCL 85753252256 No Longer Active Checo Conklin MD Activ e TERBINAFINE HCL 250 MG ORAL TABS take one table PO one time abran y TERBINAFINE HCL 65605369172 No Longer Active Checo Conklin MD Active METOCLOPRAMIDE HCL 10 MG ORAL TABS take one PO tid PRN nausea 20 29/12/14 METOCLOPRAMIDE HCL 02316435394 No Longer Active Checo Conklin MD Active DICLOFENAC SODIUM 75 MG TBEC 1 tablet by mouth twice daily P RN Knee pain DICLOFENAC SODIUM 05335277573 No Longer Active Checo Conklin MD Active LAMISIL 250 MG TAB 1 po qd TERBINAFINE HCL 548 69852275 No Longer Active Cheoc Conklin MD Active REGLAN 10 MG TAB 1 po TID PRN Nausea METOCLOPRA MIDE HCL 10186450295 No Longer Active Checo Conklin MD Active CELEXA 20 MG TABS 1 tablet by mouth daily CITALOPRAM HYDROBROMIDE 97433635119 No Longer Active Checo Conklin MD Activ e AZITHROMYCIN 250 MG TABS 2 po qd x 1 day, then 1 po qd x 4 days AZITHROMYCIN 20650064796 No Longer Active Checo Conklin MD Active HYDROCODONE-ACETAMINOPHEN 5-325 MG TABS 1 po q 6hr PRN Pain 2013 HYDROCODONE-ACETAMINOPHEN 97892421993 No Longer Active Lenora Conklin MD Active PHENAZOPYRIDINE HCL 200 MG TABS take 1 tab po TID for bladder pa in PHENAZOPYRIDINE HCL 04403290105 No Longer Active Checo Joshua Active CIPRO 500 MG TAB 1 tablet by mouth twice daily CIPROFLOXACIN HCL 54840392062 No Longer Active Dangelo Rangel MD Active HYDROCODONE-ACETAMINOPHEN 5-325 MG TABS 1/2 to 1 po q 4 hour s prn cough HYDROCODONE-ACETAMINOPHEN 90132421069 No Longer Activ e Dangelo Rangel MD Active BACTRIM DS 800-160 MG TABS 1 po BID x 7 days 0 SULFAMETHOXAZOLE-TRIMETHOPRIM 62135872469 No Longer Active Checo Conklin MD Active PREDNISONE 20 MG TAB 2 tabs daily for 3 days, 1 t ab daily for 3 days, 1/2 tab daily for 2 days PREDNISONE 67855479269 No Longer Active Checo Conklin MD Active TRIAMCINOLONE ACETONIDE 0.1 % OINT Apply to affected a reas TID for up to 2 weeks TRIAMCINOLONE ACETONIDE 45992347231 No Longer A ctive Checo Conklin MD Active CEFDINIR 300 MG CAPS by mouth twice a day CEFDI JAZZY 99034309967 No Longer Active Dangelo Rangel MD Active BUPROPION HCL (SMOKING DETER) 150 MG [id number] 1 a day for 1 week then 1 twice a day BUPROPION HCL (SMOKING DETER) 21526023114 No Lo nger Active Checo Conklin MD Active SIMVASTATIN 20 MG TABS 1 po qd SIMVASTATIN 0294884039 5 Active Checo Conklin MD Active CHANTIX STARTING MONTH KARTHIK 0.5 MG X 11 & 1 MG X 42 TAB S 0.5mg daily for 3 days, then 0.5mg BID for 4 days, then 1mg BID VARENICLINE TARTRATE 48421426816 No Longer Active Checo Conklin MD Activ e XANAX 0.5 MG TABS 1 po BID PRN anxiety ALPRAZOLAM 77541392642 Active Checo Conklin MD Active CONCERTA 18 MG CR-TABS 1 po q a.m. METHYLPHENID ATE HCL 29915770516 No Longer Active Checo Conklin MD Active AMBIEN 5 MG TAB 1 po qHS PRN Insomnia ZOLPIDEM TARTRATE 72548940285 Active Checo Conklin MD Active TRAZODONE HCL 100 MG TAB 0.5 to 1 po qHS PRN Insomnia TRAZODONE HCL 02183965778 No Longer Active Checo Conklin MD Acti ve FIORICET 325-50-40 MG TAB 1 tablet by mouth four times daily as needed [id number] 23064098604 No Longer Active Checo Conklin MD Active PHENERGAN CREAM* 25mg applied to wrist q6hr PRN Nausea PHENERGAN CREAM* No Longer Active Checo Conklin MD A ctive FLONASE 50 MCG/ACT SUSP 1 spray each nostril am and hs FLUTICASONE PROPIONATE 84362289939 No Longer Active Checo Conklin MD Activ e ANTIPYRINE-BENZOCAINE 5.4-1.4 % SOLN 1-2 drops in affected ear BENZOCAINE-ANTIPYRINE 73029402761 No Longer Active Checo Conklin MD Active CEFDINIR 300 MG CAPS 1 po bid CEFDINIR 36256506 120 No Longer Active Checo Conklin MD Active PREDNISONE 20 MG TAB 2 tabs daily for 3 days, 1 t ab daily for 3 days, 1/2 tab daily for 2 days PREDNISONE 58739333020 No Longer Active Aracelis Conklin MD Active AZITHROMYCIN 250 MG TABS 2 po qd x 1 day, then 1 po qd x 4 days AZITHROMYCIN 53440550312 No Longer Active Checo Conklin MD Active PREDNISONE 20 MG TAB 2 tabs daily for 3 days, 1 t ab daily for 3 days, 1/2 tab daily for 2 days PREDNISONE 47438185696 No Longer Active Checo Conklin MD Active ZITHROMAX Z-KARTHIK 250 MG TABS 2 today, then 1 daily for 4 days 201 09/18/28 AZITHROMYCIN 70188898883 No Longer Active Paul Hamlin MD Active FOCALIN XR 10 MG [id number] 1 po q a.m. D EXMETHYLPHENIDATE HCL 62242052340 No Longer Active Paul Hamlin MD Activ e PERCOCET 10-325 MG TABS 1 tablet every 6 hours as needed for pain OXYCODONE-ACETAMINOPHEN 75605358580 No Longer Active Paul Hamlin MD Active LORTAB 5 5-500 MG TABS 1/2 to 1 tablet by mouth flaquito ry 4 hours as needed for pain HYDROCODONE-ACETAMINOPHEN 04095385745 No Longer Active Checo Conklin MD Active FOCALIN XR 15 MG [id number] 1 po q a.m. D EXMETHYLPHENIDATE HCL 06842899972 No Longer Active Checo Conklin MD Activ e ZOFRAN ODT 4 MG TBDP 1 po q6hr PRN Nausea ONDAN SETRON 47386156931 No Longer Active Checo Conklin MD Active PERCOCET 5-325 MG TABS 1 tablet by mouth every 6 hours as needed OXYCODONE-ACETAMINOPHEN 55209513454 No Longer Active Checo Conklin MD Active PYRIDIUM 200 MG TABS take 1 tab po TID prn urinary pain. 0 PHENAZOPYRIDINE HCL 74817209142 No Longer Active Checo Conklin MD Active FLUCONAZOLE 150 MG TABS take 1 tab po qday once 04/06 FLUCONAZOLE 28669360419 No Longer Active Dangelo Rangel MD Acti ve CIPRO 500 MG TAB 1 tablet by mouth twice daily CIPROFLOXACIN HCL 71728090454 No Longer Active Dangelo Rangel MD Active PHENERGAN CREAM* 25mg applied to wrist q6hr PRN Nausea PHENERGAN CREAM* Inactive AMOXICILLIN 500 MG ORAL CAPS 2 po BID x 10 days 09/12 AMOXICILLIN 500 MG ORAL CAPS 091497 AMOXICILLIN Inactive ANTIPYRINE-BENZOCAINE 5.4-1.4 % SOLN 1-2 drops in affected ear ANTIPYRINE-BENZOCAINE 5.4-1.4 % SOLN BENZOCAINE-ANTIPYRINE I nactive BACTRIM DS 800-160 MG TAB 1 tab by mouth twice daily 2 BACTRIM DS 800-160 MG TAB 469635 TRIMETHOPRIM-SULFAMETHOXAZOLE Inac tive BACTRIM DS 800-160 MG TABS 1 po BID x 7 days 0 BACTRIM DS 800-160 MG TABS 035343 SULFAMETHOXAZOLE-TRIMETHOPRIM Inactive BACTRIM DS 800-160 MG TAB 1 tab by mouth twice daily 2 BACTRIM DS 800-160 MG TAB 475823 TRIMETHOPRIM-SULFAMETHOXAZOLE Inac tive CIPRO 500 MG TAB 1 tablet by mouth twice daily CIPRO 500 MG TAB 652283 CIPROFLOXACIN HCL Inactive CIPRO 500 MG TAB 1 tablet by mouth twice daily CIPRO 500 MG TAB 066255 CIPROFLOXACIN HCL Inactive CLARITIN 10 MG TAB 1 tablet by mouth daily as needed for allergi es CLARITIN 10 MG TAB 320386 LORATADINE Inactive FIORICET 325-50-40 MG TAB 1 tablet by mouth four times daily as needed FIORICET 325-50-40 MG TAB ACETAMINOPHEN-C AFF-BUTALBITAL Inactive FLAGYL 500 MG TAB 1 tablet by mouth bid FLAGYL 500 MG TAB 194635 METRONIDAZOLE Inactive IBUPROFEN 800 MG TABS 1 tab every 8 hours with food 31/03/21 IBUPROFEN 800 MG TABS 988739 IBUPROFEN Inactive MAGNESIUM CITRATE 1.745 GM/30ML ORAL SOLN 150ml po BID PRN C onstipation MAGNESIUM CITRATE 1.745 GM/30ML ORAL SOLN 571957 0 MAGNESIUM CITRATE Inactive METOCLOPRAMIDE HCL 10 MG ORAL TABS take one PO tid PRN nausea 20 29/12/14 METOCLOPRAMIDE HCL 10 MG ORAL TABS 571390 METOCLOPRAMID E HCL Inactive PERCOCET 5-325 MG TABS 1 tablet by mouth every 6 hours as needed PERCOCET 5-325 MG TABS 5528325 OXYCODONE-ACETAMINOPHEN I nactive PHENAZOPYRIDINE HCL 200 MG TABS take 1 tab po TID for bladder pa in PHENAZOPYRIDINE HCL 200 MG TABS 5903069 PHENAZOPYRIDINE HCL Inactive PREDNISONE 20 MG TAB 2 tabs daily for 3 days, 1 t ab daily for 3 days, 1/2 tab daily for 2 days PREDNISONE 20 MG TAB 796201 PREDNISON E Inactive PREDNISONE 20 MG TAB 2 tabs daily for 3 days, 1 t ab daily for 3 days, 1/2 tab daily for 2 days PREDNISONE 20 MG TAB 770786 PREDNISON E Inactive PREDNISONE 20 MG TAB 2 tabs daily for 3 days, 1 t ab daily for 3 days, 1/2 tab daily for 2 days PREDNISONE 20 MG TAB 835585 PREDNISON E Inactive PYRIDIUM 200 MG TABS take 1 tab po TID prn urinary pain. 0 PYRIDIUM 200 MG TABS 2817078 PHENAZOPYRIDINE HCL Inactive REGLAN 10 MG TAB 1 po TID PRN Nausea REGLAN 10 MG TAB 510736 METOCLOPRAMIDE HCL Inactive TRAZODONE HCL 100 MG TAB 0.5 to 1 po qHS PRN Insomnia TRAZODONE HCL 100 MG TAB 024050 TRAZODONE HCL Inactive TRIAMCINOLONE ACETONIDE 0.1 % OINT Apply to affected a reas TID for up to 2 weeks TRIAMCINOLONE ACETONIDE 0.1 % OINT 268578 6 TRIAMCINOLONE ACETONIDE Inactive LORTAB 5 5-500 MG TABS 1/2 to 1 tablet by mouth flaquito ry 4 hours as needed for pain LORTAB 5 5-500 MG TABS HYDROCODONE-A CETAMINOPHEN Inactive TERBINAFINE HCL 250 MG ORAL TABS take one table PO one time abran y TERBINAFINE HCL 250 MG ORAL TABS 653876 TERBINAFINE HCL Inactive SUMATRIPTAN SUCCINATE 100 MG ORAL TABS Take one PRN for migrane SUMATRIPTAN SUCCINATE 100 MG ORAL TABS 717231 SUMATRIPT AN SUCCINATE Inactive DIFLUCAN 150 MG TAB 1 tablet by mouth if needed, hold until symptoms start DIFLUCAN 150 MG TAB 427239 FLUCONAZOLE Inactive DIFLUCAN 150 MG TAB 1 tablet by mouth qod DIFLUCAN 150 MG TAB 021296 FLUCONAZOLE Inactive FLUCONAZOLE 150 MG TABS take 1 tab po qday once 04/06 FLUCONAZOLE 150 MG TABS 180384 FLUCONAZOLE Inactive DICLOFENAC SODIUM 75 MG TBEC 1 tablet by mouth twice daily P RN Knee pain DICLOFENAC SODIUM 75 MG TBEC 631264 DICLOFENAC S ODIUM Inactive LAMISIL 250 MG TAB 1 po qd LAMISIL 250 MG TAB 136465 TERBINAFINE HCL Inactive AZITHROMYCIN 250 MG TABS 2 po qd x 1 day, then 1 po qd x 4 days AZITHROMYCIN 250 MG TABS 2359114 AZITHROMYCIN Inactiv e AZITHROMYCIN 250 MG TABS 2 po qd x 1 day, then 1 po qd x 4 days AZITHROMYCIN 250 MG TABS 5295592 AZITHROMYCIN Inactiv e AZITHROMYCIN 250 MG TABS 2 po qd x 1 day, then 1 po qd x 4 days AZITHROMYCIN 250 MG TABS 1380813 AZITHROMYCIN Inactiv e BACTROBAN 2 % CREAM Apply to affected area BID for up to 10 days BACTROBAN 2 % CREAM 618462 MUPIROCIN CALCIUM Inactive CEFDINIR 300 MG CAPS by mouth twice a day CEFDINIR 300 MG CAPS 870733 CEFDINIR Inactive CEFDINIR 300 MG CAPS 1 po bid CEFDINIR 300 MG CAPS 0346 CEFDINIR Inactive CELEXA 20 MG TABS 1 tablet by mouth daily CELEXA 20 MG TABS 137595 CITALOPRAM HYDROBROMIDE Inactive ZOFRAN ODT 4 MG TBDP 1 po q6hr PRN Nausea ZOFRAN ODT 4 MG TBDP 530255 ONDANSETRON Inactive ONDANSETRON [address] one tablet on tongue and allow to dissolve every 6 hours as needed for vomitting ON DANSETRON 8 MG ORAL TBDP 000737 ONDANSETRON Inactive CONCERTA 18 MG CR-TABS 1 po q a.m. CONCERTA 18 MG CR-TABS METHYLPHENIDATE HCL Inactive COMPRO 25 MG RECTAL SUPP insert or apply one supposit ory rectally as directed every 12 hours as needed for nausea COMP RO 25 MG RECTAL SUPP 533152 PROCHLORPERAZINE Inactive ZITHROMAX Z-KARTHIK 250 MG TABS 2 today, then 1 daily for 4 days 201 09/18/28 ZITHROMAX Z-KARTHIK 250 MG TABS 7289134 AZITHROMYCIN Inac tive FLONASE 50 MCG/ACT SUSP 1 spray each nostril am and hs FLONASE 50 MCG/ACT SUSP FLUTICASONE PROPIONATE Inactive PERCOCET 10-325 MG TABS 1 tablet every 6 hours as needed for pain PERCOCET 10-325 MG TABS 3675316 OXYCODONE-ACETAMINOPHEN Inactive HYDROCODONE-ACETAMINOPHEN 5-325 MG TABS 1 po q 6hr PRN Pain 2013 HYDROCODONE-ACETAMINOPHEN 5-325 MG TABS 474579 HYDROCODONE-ACETAMINOPHEN Inactive HYDROCODONE-ACETAMINOPHEN 5-325 MG TABS 0.5 to 1 tab b y mouth every 6 hours as needed HYDROCODONE-ACETAMINOPHEN 5-325 MG TABS 8 90664 HYDROCODONE-ACETAMINOPHEN Inactive HYDROCODONE-ACETAMINOPHEN 5-325 MG TABS 1 tab by mouth every 6 hours as needed HYDROCODONE-ACETAMINOPHEN 5-325 MG TABS 771468 HYDROCODONE-ACETAMINOPHEN Inactive HYDROCODONE-ACETAMINOPHEN 5-325 MG TABS 1/2 to 1 po q 4 hour s prn cough HYDROCODONE-ACETAMINOPHEN 5-325 MG TABS 391683 HYDROCODONE-ACETAMINOPHEN Inactive BUPROPION HCL ER (SR) 100 MG ORAL [id number] take one t ablet by mouth one time daily for one week then take 1 two times daily BUPROPION HCL ER (SR) 100 MG ORAL [id number] BUPROPION HCL Inacti ve FOCALIN XR 10 MG [id number] 1 po q a.m. F OCALIN XR 10 MG [id number] DEXMETHYLPHENIDATE HCL Inactive FLUTICASONE PROPIONATE 50 MCG/ACT NASAL SUSP 2 sprays/ nostril qd PRN Congestion/Allergies FLUTICASONE PROPION ATE 50 MCG/ACT NASAL SUSP 0711207 FLUTICASONE PROPIONATE Inactive FOCALIN XR 15 MG [id number] 1 po q a.m. F OCALIN XR 15 MG [id number]-[id number] DEXMETHYLPHENIDATE HCL Inactive TRAVEL SICKNESS 25 MG ORAL CHEW chew and swallow one t ablet every 6 hours as needed TRAVEL SICKNESS 25 MG ORAL CHEW 243532 MECLIZINE HCL Inactive CHANTIX STARTING MONTH KARTHIK [...] Report: CBC W/DIFF, Comp. Metabolic Panel, Qual [facility] [place] - Chemistry sodium, serum 139 mmol/L 892-027 4739/10/21 carbon dioxide, venous blood 33.5 mmol/L 21.0-32 [...] Report: CBC W/DIFF, Comp. Metabolic Panel, Qual [facility] [place] - Hematology leukocyte count, [...] PANEL - Chemistry cholesterol, serum 192 mg/dL 227-675 0197/02/20 HDL cholesterol, serum 31 mg/dL > OR [...] 11 .0-15.0 platelet count 218 THOUSAND/UL 10*3/mm3 802-778 6049/02/20 mean platelet volume 9.7 fL 7.5-12.5 Lab Report: Chlamydia/GC APTIMA/[id number] - Lab chlamydia DNA probe NOT DETECTED NOT DETECTED Lab Report: Chlamydia/GC APTIMA/90101 - Microbiology Neisseria gonorrhoeae DNA probe NOT DETECTED NO T DETECTED Lab Report: Comp. Metabolic Panel, Thyro id Stimulating Hormone (L), Eryt ... - Chemistry sodium, serum 137 mmol/L 419-048 4130/05/27 carbon dioxide, venous blood 29.1 mmol/L 21.0-32 [...] 5.0-8.5 Encounters Code Encounter Date Provider Facility CPT-47306 Level 3 Est. Patient 11:29:55 CDT Checo Conklin MD [facility] CPT-33174 Level 4 Est. Patient 11:08:12 [employer] Checo Conklin MD [facility] CPT-98203 Level 4 Est. Patient 16:06:48 [employer] Checo Conklin MD [facility] CPT-11809 Level 3 Est. Patient 09:11:49 CDT [facility] CPT-79482 Level 2 Est. Patient 19:53:27 CDT Tanner hill MD [facility] CPT-33505 Level 3 Est. Patient 09:15:34 CDT [facility] CPT-21629 Level 3 Est. Patient 11:28:51 [employer] [facility] CPT-12275 Level 4 Est. Patient 13:55:46 [employer] Checo Conklin MD [facility] CPT-14201 Level 4 Est. Patient 17:10:53 CDT Checo Conklin MD [facility] CPT-74691 Level 3 Est. Patient 15:56:22 CDT Checo Conklin MD [facility] CPT-02897 Level 3 Est. Patient 15:29:07 CDT Checo Conklin MD [facility] CPT-49399 Level 3 Est. Patient 14:38:41 CDT Checo Conklin MD [facility] CPT-23618 Level 3 Est. Patient 15:22:03 [employer] Thomas reynolds DO [facility] CPT-46167 Level 3 Est. Patient 13:34:17 [employer] Checo Conklin MD [facility] CPT-61811 Level 3 Est. Patient 12:29:32 CDT Dangelo arroyo MD [facility] CPT-00159 Level 3 Est. Patient 16:53:02 CDT Checo Conklin MD [facility] CPT-10682 Level 3 Est. Patient 16:37:13 CDT Checo Conklin MD [facility] CPT-53570 Level 3 Est. Patient 16:16:59 CDT Paul Hamlin MD [facility] CPT-80733 Level 3 Est. Patient 14:20:13 CDT Dangelo arroyo MD [facility] CPT-08486 Level 4 Est. Patient 11:29:33 CDT Checo Conklin MD [facility] CPT-67564 Level 3 Est. Patient 17:08:31 CDT Checo Conklin MD [facility] CPT-14271 Level 3 Est. Patient 16:50:42 [employer] Checo Conklin MD [facility] CPT-16898 Level 4 Est. Patient 09:26:08 [employer] Checo Conklin MD [facility] CPT-42539 Level 3 Est. Patient 11:37:10 CDT Checo Conklin MD [facility] CPT-80275 Level 4 Est. Patient 14:07:38 CDT Checo Conklin MD [facility] CPT-26590 Level 3 Est. Patient 09:54:41 CDT Checo Conklin MD [facility] CPT-16509 Level 3 Est. Patient 11:10:54 CDT Paul Hamlin MD [facility] CPT-37107 Level 3 Est. Patient 14:16:56 [employer] Checo Conklin MD [facility] CPT-05892 Level 3 Est. Patient 11:04:11 [employer] Checo Conklin MD [facility] CPT-15942 Level 3 Est. Patient 17:09:26 CDT Dangelo arroyo MD [facility] CPT-13851 Level 3 Est. Patient 16:54:37 CDT Checo Conklin MD [facility] Procedures Code Procedure Name Date Entry Date Standard Desc ription CPT-88188 UA w micro - LAB USE ONLY 17:06:46 CDT 2015 CPT-94872 [facility] Qual - LAB USE ONLY 17:06:46 CDT 05/06 CPT-61596 CMP - LAB USE ONLY 17:06:46 CDT CPT-49143 CBC with Diff - LAB USE ONLY 17:06:45 CDT 2 CPT-13503 Venipuncture Draw Fee 17:06:45 CDT CPT-LR Lesion Removal 19:53:27 CDT CPT-OV Office Visit 11:31:28 CDT CPT-32999 Tubersol 09:39:29 CDT CPT-J2550 Phenergan 25 mg (Promethazine) 13:59:02 [employer] CPT-J1885 Toradol 60 mg (Ketorolac) 13:59:02 [employer] 2012
--- OUTSIDE RECORDS SUMMARY | 2019-09-29 01:25 | XMS REPORT | Clinical Summary ---
Author Author Admin, Bethany Ayala [facility] Address Unknown Phone Unavailable Allergies, Adverse [...] TABS 1.5 po qd PAROX ETINE HCL 79153768277 Active Checo Conklin MD Active FLUTICASONE PROPIONATE 50 MCG/ACT NASAL SUSP 2 sprays/ nostril qd PRN Congestion/Allergies FLUTICASONE PROPIONATE 0316272744 5 No Longer Active Checo Conklin MD Active AMOXICILLIN 500 MG ORAL CAPS 2 po BID x 10 days 09/12 AMOXICILLIN 35433246260 No Longer Active Checo Conklin MD Activ e MIRALAX ORAL POWD 8.5 to 17g po qd PRN Constipation POLYETHYLENE GLYCOL 3350 32111316313 Active Checo Conklin MD Active CLARITIN 10 MG TAB 1 tablet by mouth daily as needed for allergi es LORATADINE 70318578676 No Longer Active Checo Conklin MD Active BACTRIM DS 800-160 MG TAB 1 tab by mouth twice daily 2 TRIMETHOPRIM-SULFAMETHOXAZOLE 72884473048 No Longer Active Tannre Carrillo MD Active DIFLUCAN 150 MG TAB 1 tablet by mouth qod FLUCO NAZOLE 00052941322 No Longer Active Jillina Frazell MANAGER TRANSFER Active AZITHROMYCIN 250 MG TABS 2 po qd x 1 day, then 1 po qd x 4 days AZITHROMYCIN 39383934174 No Longer Active Americomarine Medel APRN Active FLAGYL 500 MG TAB 1 tablet by mouth bid METRONI DAZOLE 62265470304 No Longer Active Checo Conklin MD Active FOCALIN XR 10 MG ORAL [id number] 1 po q a.m. DEX METHYLPHENIDATE HCL 91465156601 Active Checo Conklin MD Active MAGNESIUM CITRATE 1.745 GM/30ML ORAL SOLN 150ml po BID PRN C onstipation MAGNESIUM CITRATE 46158509442 No Longer Active Checo Conklin MD Active BACTROBAN 2 % CREAM Apply to affected area BID for up to 10 days MUPIROCIN CALCIUM 87319333848 No Longer Active Checo Conklin MD Active HYDROCODONE-ACETAMINOPHEN 5-325 MG TABS 1 tab by mouth every 6 hours as needed HYDROCODONE-ACETAMINOPHEN 38746916514 No Longer Activ e Checo Conklin MD Active IBUPROFEN 800 MG TABS 1 tab every 8 hours with food 20 31/03/21 IBUPROFEN 00491212894 No Longer Active Checo Conklin MD Activ e DIFLUCAN 150 MG TAB 1 tablet by mouth if needed, hold until symptoms start FLUCONAZOLE 31687108528 No Longer Active Checo Ortiz MD Active BACTRIM DS 800-160 MG TAB 1 tab by mouth twice daily 2 TRIMETHOPRIM-SULFAMETHOXAZOLE 76977355506 No Longer Active Corry leong LPN Active HYDROCODONE-ACETAMINOPHEN 5-325 MG TABS 0.5 to 1 tab b y mouth every 6 hours as needed HYDROCODONE-ACETAMINOPHEN 97896287679 No Longer Active Checo Conklin MD Active ONDANSETRON [address] one tablet on tongue and allow to dissolve every 6 hours as needed for vomitting ONDANSETRO N 72219944264 No Longer Active Checo Conklin MD Active COMPRO 25 MG RECTAL SUPP insert or apply one supposit ory rectally as directed every 12 hours as needed for nausea PROCHLORPERA ZINE 97273943432 No Longer Active Checo Conklin MD Active SUMATRIPTAN SUCCINATE 100 MG ORAL TABS Take one PRN for migrane SUMATRIPTAN SUCCINATE 65973086541 No Longer Active Checo Conklin MD Active TRAVEL SICKNESS 25 MG ORAL CHEW chew and swallow one t ablet every 6 hours as needed MECLIZINE HCL 26508528560 No Longer Active Joe Conklin MD Active BUPROPION HCL ER (SR) 100 MG ORAL [id number] take one t ablet by mouth one time daily for one week then take 1 two times daily BUPROPION HCL 44400553386 No Longer Active Checo Conklin MD Activ e TERBINAFINE HCL 250 MG ORAL TABS take one table PO one time abran y TERBINAFINE HCL 34892813619 No Longer Active Checo Conklin MD Active METOCLOPRAMIDE HCL 10 MG ORAL TABS take one PO tid PRN nausea 20 29/12/14 METOCLOPRAMIDE HCL 40672745898 No Longer Active Checo Conklin MD Active DICLOFENAC SODIUM 75 MG TBEC 1 tablet by mouth twice daily P RN Knee pain DICLOFENAC SODIUM 93535493102 No Longer Active Checo Conklin MD Active LAMISIL 250 MG TAB 1 po qd TERBINAFINE HCL 548 38526750 No Longer Active Checo Conklin MD Active REGLAN 10 MG TAB 1 po TID PRN Nausea METOCLOPRA MIDE HCL 61170355278 No Longer Active Checo Conklin MD Active CELEXA 20 MG TABS 1 tablet by mouth daily CITALOPRAM HYDROBROMIDE 37785623547 No Longer Active Checo Conklin MD Activ e AZITHROMYCIN 250 MG TABS 2 po qd x 1 day, then 1 po qd x 4 days AZITHROMYCIN 50683351453 No Longer Active Checo Conklin MD Active HYDROCODONE-ACETAMINOPHEN 5-325 MG TABS 1 po q 6hr PRN Pain 2013 HYDROCODONE-ACETAMINOPHEN 14134876775 No Longer Active Lenora Conklin MD Active PHENAZOPYRIDINE HCL 200 MG TABS take 1 tab po TID for bladder pa in PHENAZOPYRIDINE HCL 86503034404 No Longer Active Checo Joshua Active CIPRO 500 MG TAB 1 tablet by mouth twice daily CIPROFLOXACIN HCL 06500338224 No Longer Active Dangelo Rangel MD Active HYDROCODONE-ACETAMINOPHEN 5-325 MG TABS 1/2 to 1 po q 4 hour s prn cough HYDROCODONE-ACETAMINOPHEN 04523644937 No Longer Activ e Dangelo Rangel MD Active BACTRIM DS 800-160 MG TABS 1 po BID x 7 days 0 SULFAMETHOXAZOLE-TRIMETHOPRIM 36720518147 No Longer Active Checo Conklin MD Active PREDNISONE 20 MG TAB 2 tabs daily for 3 days, 1 t ab daily for 3 days, 1/2 tab daily for 2 days PREDNISONE 26866659798 No Longer Active Checo Conklin MD Active TRIAMCINOLONE ACETONIDE 0.1 % OINT Apply to affected a reas TID for up to 2 weeks TRIAMCINOLONE ACETONIDE 25749728756 No Longer A ctive Checo Conklin MD Active CEFDINIR 300 MG CAPS by mouth twice a day CEFDI JAZZY 13271350253 No Longer Active Dangelo Rangel MD Active BUPROPION HCL (SMOKING DETER) 150 MG [id number] 1 a day for 1 week then 1 twice a day BUPROPION HCL (SMOKING DETER) 47724304038 No Lo nger Active Checo Conklin MD Active SIMVASTATIN 20 MG TABS 1 po qd SIMVASTATIN 5115168461 5 Active Checo Conklin MD Active CHANTIX STARTING MONTH KARTHIK 0.5 MG X 11 & 1 MG X 42 TAB S 0.5mg daily for 3 days, then 0.5mg BID for 4 days, then 1mg BID VARENICLINE TARTRATE 89988211131 No Longer Active Checo Conklin MD Activ e XANAX 0.5 MG TABS 1 po BID PRN anxiety ALPRAZOLAM 69008167901 Active Checo Conklin MD Active CONCERTA 18 MG CR-TABS 1 po q a.m. METHYLPHENID ATE HCL 13497427177 No Longer Active Checo Conklin MD Active AMBIEN 5 MG TAB 1 po qHS PRN Insomnia ZOLPIDEM TARTRATE 22891535549 Active Checo Conklin MD Active TRAZODONE HCL 100 MG TAB 0.5 to 1 po qHS PRN Insomnia TRAZODONE HCL 72952123222 No Longer Active Checo Conklin MD Acti ve FIORICET 325-50-40 MG TAB 1 tablet by mouth four times daily as needed [id number] 89857870546 No Longer Active Checo Conklin MD Active PHENERGAN CREAM* 25mg applied to wrist q6hr PRN Nausea PHENERGAN CREAM* No Longer Active Checo Conklin MD A ctive FLONASE 50 MCG/ACT SUSP 1 spray each nostril am and hs FLUTICASONE PROPIONATE 75576164164 No Longer Active Checo Simms e ANTIPYRINE-BENZOCAINE 5.4-1.4 % SOLN 1-2 drops in affected ear BENZOCAINE-ANTIPYRINE 65211731443 No Longer Active Checo Conklin MD Active CEFDINIR 300 MG CAPS 1 po bid CEFDINIR 17521870 120 No Longer Active Checo Conklin MD Active PREDNISONE 20 MG TAB 2 tabs daily for 3 days, 1 t ab daily for 3 days, 1/2 tab daily for 2 days PREDNISONE 69846700153 No Longer Active Aracelis Conklin MD Active AZITHROMYCIN 250 MG TABS 2 po qd x 1 day, then 1 po qd x 4 days AZITHROMYCIN 63480294371 No Longer Active Checo Conklin MD Active PREDNISONE 20 MG TAB 2 tabs daily for 3 days, 1 t ab daily for 3 days, 1/2 tab daily for 2 days PREDNISONE 03879593679 No Longer Active Checo Conklin MD Active ZITHROMAX Z-KARTHIK 250 MG TABS 2 today, then 1 daily for 4 days 201 09/18/28 AZITHROMYCIN 95575628786 No Longer Active Paul Hamlin MD Active FOCALIN XR 10 MG [id number] 1 po q a.m. D EXMETHYLPHENIDATE HCL 93214490477 No Longer Active Paul Hamlin MD Activ e PERCOCET 10-325 MG TABS 1 tablet every 6 hours as needed for pain OXYCODONE-ACETAMINOPHEN 68041993654 No Longer Active Paul Hamlin MD Active LORTAB 5 5-500 MG TABS 1/2 to 1 tablet by mouth flaquito ry 4 hours as needed for pain HYDROCODONE-ACETAMINOPHEN 51703410140 No Longer Active Checo Conklin MD Active FOCALIN XR 15 MG [id number] 1 po q a.m. D EXMETHYLPHENIDATE HCL 55556904547 No Longer Active Checo Conklin MD Activ e ZOFRAN ODT 4 MG TBDP 1 po q6hr PRN Nausea ONDAN SETRON 27124502024 No Longer Active Checo Conklin MD Active PERCOCET 5-325 MG TABS 1 tablet by mouth every 6 hours as needed OXYCODONE-ACETAMINOPHEN 90274259179 No Longer Active Checo Conklin MD Active PYRIDIUM 200 MG TABS take 1 tab po TID prn urinary pain. 0 PHENAZOPYRIDINE HCL 72352427584 No Longer Active Checo Conklin MD Active FLUCONAZOLE 150 MG TABS take 1 tab po qday once 04/06 FLUCONAZOLE 97024440847 No Longer Active Dangelo Rangel MD Acti ve CIPRO 500 MG TAB 1 tablet by mouth twice daily CIPROFLOXACIN HCL 55731966282 No Longer Active Dangelo Rangel MD Active PYRIDIUM 200 MG TABS take 1 tab po TID prn urinary pain. 0 PYRIDIUM 200 MG TABS 5171610 PHENAZOPYRIDINE HCL Inactive PERCOCET 5-325 MG TABS 1 tablet by mouth every 6 hours as needed PERCOCET 5-325 MG TABS 0003622 OXYCODONE-ACETAMINOPHEN I nactive ZOFRAN ODT 4 MG TBDP 1 po q6hr PRN Nausea ZOFRAN ODT 4 MG TBDP 896048 ONDANSETRON Inactive FOCALIN XR 15 MG [id number] 1 po q a.m. F OCALIN XR 15 MG [id number] DEXMETHYLPHENIDATE HCL Inactive LORTAB 5 5-500 MG TABS 1/2 to 1 tablet by mouth flaquito ry 4 hours as needed for pain LORTAB 5 5-500 MG TABS HYDROCODONE-A CETAMINOPHEN Inactive PERCOCET 10-325 MG TABS 1 tablet every 6 hours as needed for pain PERCOCET 10-325 MG TABS 4747807 OXYCODONE-ACETAMINOPHEN Inactive FOCALIN XR 10 MG [id number] 1 po q a.m. F OCALIN XR 10 MG [id number] DEXMETHYLPHENIDATE HCL Inactive CEFDINIR 300 MG CAPS [...] PRN Insomnia TRAZODONE HCL 100 MG TAB 336432 TRAZODONE HCL Inactive CONCERTA 18 MG CR-TABS [...] s prn cough HYDROCODONE-ACETAMINOPHEN 5-325 MG TABS 634087 HYDROCODONE-ACETAMINOPHEN Inactive PHENAZOPYRIDINE HCL 200 MG TABS take 1 tab po TID for bladder pa in PHENAZOPYRIDINE HCL 200 MG TABS 6333995 PHENAZOPYRIDINE HCL Inactive HYDROCODONE-ACETAMINOPHEN 5-325 MG TABS 1 po q 6hr PRN Pain 2013 HYDROCODONE-ACETAMINOPHEN 5-325 MG TABS 021790 HYDROCODONE-ACETAMINOPHEN Inactive CELEXA 20 MG TABS 1 tablet by mouth daily CELEXA 20 MG TABS 678640 CITALOPRAM HYDROBROMIDE Inactive REGLAN 10 MG TAB 1 po TID PRN Nausea REGLAN 10 MG TAB 828856 METOCLOPRAMIDE HCL Inactive LAMISIL 250 MG TAB 1 po qd LAMISIL 250 MG TAB 936808 TERBINAFINE HCL Inactive DICLOFENAC SODIUM 75 MG TBEC 1 tablet by mouth twice daily P RN Knee pain DICLOFENAC SODIUM 75 MG [place] 888610 DICLOFENAC S ODIUM Inactive METOCLOPRAMIDE HCL 10 MG ORAL TABS take one PO tid PRN nausea 20 29/12/14 METOCLOPRAMIDE HCL 10 MG ORAL TABS 996278 METOCLOPRAMID E HCL Inactive TERBINAFINE HCL 250 MG ORAL TABS take one table PO one time abran y TERBINAFINE HCL 250 MG ORAL TABS 197980 TERBINAFINE HCL Inactive BUPROPION HCL ER (SR) 100 MG ORAL [id number] take one t ablet by mouth one time daily for one week then take 1 two times daily BUPROPION HCL ER (SR) 100 MG ORAL [id number] BUPROPION HCL Inacti ve TRAVEL SICKNESS 25 MG ORAL CHEW chew and swallow one t ablet every 6 hours as needed TRAVEL SICKNESS 25 MG ORAL CHEW 472490 MECLIZINE HCL Inactive SUMATRIPTAN SUCCINATE 100 MG ORAL TABS Take one PRN for migrane SUMATRIPTAN SUCCINATE 100 MG ORAL TABS 261899 SUMATRIPT AN SUCCINATE Inactive COMPRO 25 MG RECTAL SUPP insert or apply one supposit ory rectally as directed every 12 hours as needed for nausea COMP RO 25 MG RECTAL SUPP 937802 PROCHLORPERAZINE Inactive ONDANSETRON [address] one tablet on tongue and allow to dissolve every 6 hours as needed for vomitting ON DANSETRON 8 MG ORAL TBDP 893203 ONDANSETRON Inactive HYDROCODONE-ACETAMINOPHEN 5-325 MG TABS 0.5 to 1 tab b y mouth every 6 hours as needed HYDROCODONE-ACETAMINOPHEN 5-325 MG TABS 8 23820 HYDROCODONE-ACETAMINOPHEN Inactive BACTRIM DS 800-160 MG TAB 1 tab by mouth twice daily 2 BACTRIM DS 800-160 MG TAB 026541 TRIMETHOPRIM-SULFAMETHOXAZOLE Inac tive DIFLUCAN 150 MG TAB 1 tablet by mouth if needed, hold until symptoms start DIFLUCAN 150 MG TAB 19760325 FLUCONAZOLE Inactive IBUPROFEN 800 MG TABS 1 tab every 8 hours with food 31/03/21 IBUPROFEN 800 MG TABS 575132 IBUPROFEN Inactive HYDROCODONE-ACETAMINOPHEN 5-325 MG TABS 1 tab by mouth every 6 hours as needed HYDROCODONE-ACETAMINOPHEN 5-325 MG TABS 071832 HYDROCODONE-ACETAMINOPHEN Inactive BACTROBAN 2 % CREAM Apply to affected area BID for up to 10 days BACTROBAN 2 % CREAM 612030 MUPIROCIN CALCIUM Inactive MAGNESIUM CITRATE 1.745 GM/30ML ORAL SOLN 150ml po BID PRN C onstipation MAGNESIUM CITRATE 1.745 GM/30ML ORAL SOLN 660730 0 MAGNESIUM CITRATE Inactive DIFLUCAN 150 MG TAB 1 tablet by mouth qod DIFLUCAN 150 MG TAB 979603 FLUCONAZOLE Inactive BACTRIM DS 800-160 MG TAB 1 tab by mouth twice daily 2 BACTRIM DS 800-160 MG TAB 731430 TRIMETHOPRIM-SULFAMETHOXAZOLE Inac tive CLARITIN 10 MG TAB 1 tablet by mouth daily as needed for allergi es CLARITIN 10 MG TAB 533855 LORATADINE Inactive FLUTICASONE PROPIONATE 50 MCG/ACT NASAL SUSP 2 sprays/ nostril qd PRN Congestion/Allergies FLUTICASONE PROPION ATE 50 MCG/ACT NASAL SUSP 3918413 FLUTICASONE PROPIONATE Inactive CIPRO 500 MG TAB 1 tablet by mouth twice daily CIPRO 500 MG TAB 091115 CIPROFLOXACIN HCL Inactive FLUCONAZOLE 150 MG TABS take 1 tab po qday once 04/06 FLUCONAZOLE 150 MG TABS 928934 FLUCONAZOLE Inactive ZITHROMAX Z-KARTHIK 250 MG TABS 2 today, then 1 daily for 4 days 201 09/18/28 ZITHROMAX Z-KARTHIK 250 MG TABS 9036082 AZITHROMYCIN Inac tive PREDNISONE 20 MG TAB 2 tabs daily for 3 days, 1 t ab daily for 3 days, 1/2 tab daily for 2 days PREDNISONE 20 MG TAB 887583 PREDNISON E Inactive AZITHROMYCIN 250 MG TABS 2 po qd x 1 day, then 1 po qd x 4 days AZITHROMYCIN 250 MG TABS 4221619 AZITHROMYCIN Inactiv e PREDNISONE 20 MG TAB 2 tabs daily for 3 days, 1 t ab daily for 3 days, 1/2 tab daily for 2 days PREDNISONE 20 MG TAB 864457 PREDNISON E Inactive CEFDINIR 300 MG CAPS by mouth twice a day CEFDINIR 300 MG CAPS 183790 CEFDINIR Inactive TRIAMCINOLONE ACETONIDE 0.1 % OINT Apply to affected a reas TID for up to 2 weeks TRIAMCINOLONE ACETONIDE 0.1 % OINT 728289 6 TRIAMCINOLONE ACETONIDE Inactive PREDNISONE 20 MG TAB 2 tabs daily for 3 days, 1 t ab daily for 3 days, 1/2 tab daily for 2 days PREDNISONE 20 MG TAB 707161 PREDNISON E Inactive BACTRIM DS 800-160 MG TABS 1 po BID x 7 days 0 BACTRIM DS 800-160 MG TABS 031992 SULFAMETHOXAZOLE-TRIMETHOPRIM Inactive CIPRO 500 MG TAB 1 tablet by mouth twice daily CIPRO 500 MG TAB 634946 CIPROFLOXACIN HCL Inactive AZITHROMYCIN 250 MG TABS 2 po qd x 1 day, then 1 po qd x 4 days AZITHROMYCIN 250 MG TABS 5277687 AZITHROMYCIN Inactiv e FLAGYL 500 MG TAB 1 tablet by mouth bid FLAGYL 500 MG TAB 184670 METRONIDAZOLE Inactive AZITHROMYCIN 250 MG TABS 2 po qd x 1 day, then 1 po qd x 4 days AZITHROMYCIN 250 MG TABS 4427690 AZITHROMYCIN Inactiv e AMOXICILLIN 500 MG ORAL CAPS 2 po BID x 10 days 09/12 AMOXICILLIN 500 MG ORAL CAPS 916724 AMOXICILLIN Inactive Immunizations Vaccine Administration Date Value [...] Report: CBC W/DIFF, Comp. Metabolic Panel, Qual [facility] [place] Chemistry sodium, serum 139 mmol/L 585-391 8878/10/21 carbon dioxide, venous blood 33.5 mmol/L 21.0-32 [...] Report: CBC W/DIFF, Comp. Metabolic Panel, Qual [facility] [place] Hematology leukocyte count, blood 7.9 10^3/MM^3 [...] PANEL - Chemistry cholesterol, serum 192 mg/dL 051-710 3789/02/20 HDL cholesterol, serum 31 mg/dL > OR [...] 11 .0-15.0 platelet count 218 THOUSAND/UL 10*3/mm3 970-588 1876/02/20 mean platelet volume 9.7 fL 7.5-12.5 Lab Report: Chlamydia/GC APTIMA/13329 - Lab chlamydia DNA probe NOT DETECTED NOT DETECTED Lab Report: Chlamydia/GC APTIMA/40997 - Microbiology Neisseria gonorrhoeae DNA probe NOT DETECTED NO T DETECTED Lab Report: Comp. Metabolic Panel, Thyro id Stimulating Hormone (L), Eryt ... - Chemistry sodium, serum 137 mmol/L 668-374 7751/05/27 carbon dioxide, venous blood 29.1 mmol/L 21.0-32 [...] 5.0-8.5 Encounters Code Encounter Date Provider Facility CPT-56702 Level 3 Est. Patient 11:29:55 CDT Checo Conklin MD [facility] CPT-20662 Level 4 Est. Patient 11:08:12 PILLOWCASE TURNER Checo Conklin MD [facility] CPT-47097 Level 4 Est. Patient 16:06:48 PILLOWCASE TURNER Checo Conklin MD [facility] CPT-47002 Level 3 Est. Patient 09:11:49 CDT Efren almendarez [facility] CPT-86919 Level 2 Est. Patient 19:53:27 CDT Tanner hill MD [facility] CPT-72835 Level 3 Est. Patient 09:15:34 CDT Efren almendarez [facility] CPT-65758 Level 3 Est. Patient 11:28:51 PILLOWCASE TURNER Efren almendarez [facility] CPT-67804 Level 4 Est. Patient 13:55:46 PILLOWCASE TURNER Checo Conklin MD [facility] CPT-51239 Level 4 Est. Patient 17:10:53 CDT Checo Conklin MD [facility] CPT-43905 Level 3 Est. Patient 15:56:22 CDT Checo Conklin MD [facility] CPT-85359 Level 3 Est. Patient 15:29:07 CDT Checo Conklin MD [facility] CPT-89957 Level 3 Est. Patient 14:38:41 CDT Checo Conklin MD [facility] CPT-68608 Level 3 Est. Patient 15:22:03 PILLOWCASE TURNER Thomas reynolds DO [facility] CPT-98441 Level 3 Est. Patient 13:34:17 PILLOWCASE TURNER Checo Conklin MD [facility] CPT-48978 Level 3 Est. Patient 12:29:32 CDT Dangelo arroyo MD [facility] CPT-24563 Level 3 Est. Patient 16:53:02 CDT Checo Conklin MD [facility] CPT-82177 Level 3 Est. Patient 16:37:13 CDT Checo Conklin MD [facility] CPT-79058 Level 3 Est. Patient 16:16:59 CDT Paul Hamlin MD [facility] CPT-54850 Level 3 Est. Patient 14:20:13 CDT Dangelo arroyo MD [facility] CPT-51011 Level 4 Est. Patient 11:29:33 CDT Checo Conklin MD [facility] CPT-09866 Level 3 Est. Patient 17:08:31 CDT Checo Conklin MD [facility] CPT-80870 Level 3 Est. Patient 16:50:42 PILLOWCASE TURNER Checo Conklin MD [facility] CPT-25222 Level 4 Est. Patient 09:26:08 PILLOWCASE TURNER Checo Conklin MD [facility] CPT-86304 Level 3 Est. Patient 11:37:10 CDT Checo Conklin MD [facility] CPT-24147 Level 4 Est. Patient 14:07:38 CDT Checo Conklin MD [facility] CPT-46380 Level 3 Est. Patient 09:54:41 CDT Checo Conklin MD [facility] CPT-69688 Level 3 Est. Patient 11:10:54 CDT Paul Hamlin MD [facility] CPT-01485 Level 3 Est. Patient 14:16:56 PILLOWCASE TURNER Checo Conklin MD [facility] CPT-71839 Level 3 Est. Patient 11:04:11 PILLOWCASE TURNER Checo Conklin MD [facility] CPT-00774 Level 3 Est. Patient 17:09:26 CDT Dangelo arroyo MD [facility] CPT-50075 Level 3 Est. Patient 16:54:37 CDT Checo Conklin MD [facility] Procedures Code Procedure Name Date Entry Date Standard Desc ription CPT-39088 UA w micro - LAB USE ONLY 17:06:46 CDT 2015 CPT-31348 [facility] Qual - LAB USE ONLY 17:06:46 CDT 05/06 CPT-27495 CMP - LAB USE ONLY 17:06:46 CDT CPT-52393 CBC with Diff - LAB USE ONLY 17:06:45 CDT 2 CPT-69095 Venipuncture Draw Fee 17:06:45 CDT CPT-LR Lesion Removal 19:53:27 CDT CPT-OV Office Visit 11:31:28 CDT CPT-14709 Tubersol 09:39:29 CDT CPT-J2550 Phenergan 25 mg (Promethazine) 13:59:02 PILLOWCASE TURNER CPT-J1885 Toradol 60 mg (Ketorolac) 13:59:02 PILLOWCASE TURNER 2012
--- OUTSIDE RECORDS SUMMARY | 2019-09-29 01:26 | XMS REPORT | Clinical Summary ---
Author Author Admin, Bethany Gonzales Organization [employer] Address Unknown Phone Unavailable Allergies, Adverse Reactions, [...] joint involving lower leg Vertigo 780.4 Resolved Cheoc Conklin MD Dizziness and giddiness Constipation 564.00 Active Checo Conklin MD Constipation, unspecified Abscess, skin 682.9 Resolved Checo Conklin MD Cellulitis and abscess of unspecified sites Insomnia, chronic 307.42 Active Checo Conklin MD Persistent disorder of initiating or maintaining sleep Bacterial vaginosis 616.10 Resolved Checo martinze MD Vaginitis and vulvovaginitis, unspecified Pharyngitis 462 Resolved Checo Conklin MD Acute pharyngitis Cough 786.2 Resolved Checo Conklin MD Cough Pedal edema 782.3 Resolved Checo Conklin MD Edema 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 hCeco Conklin MD Neoplasm of uncertain behavior of skin Abdominal pain, generalized 789.07 Resolved Checo Conklin MD Abdominal pain, generalized Urinary frequency 788.41 Resolved Checo Conklin MD Urinary frequency Sinusitis, acute 461.9 Resolved Checo Conklin MD Acute sinusitis, unspecified Repeated falls 781.99 Active Paul Hamlin MD Other symptoms involving nervous and musculoskeletal systems Abdominal pain, generalized 789.07 Active Efren Medel [employer] ATTENDANT Abdominal pain, generalized Nausea 787.02 Active Efren Medel APRN Nausea alone FH BREAST CANCER ICD-V16.3 Inactive Checo Joshua [...] Inactive Checo Conklin MD Insect bite ICD-919.4 Ozzy Conklin MD Carbuncle/furuncle NOS ICD-680.9 Inactive Hilaria [...] Generic Name NDC Status Provider Patient Instruction PROTONIX 40 MG ORAL TABLET DELAYED RELEASE 1 pill by m outh daily, for acid reflux PANTOPRAZOLE SODIUM 06398879297 Active Fan Méndez LPN Active FLAGYL 500 MG ORAL TABLET 1 tablet by mouth bid 08/29 METRONIDAZOLE 94362157957 Active Corry Méndez LPN Acti ve CLARITHROMYCIN 500 MG ORAL TABLET 1 tab po BID x 14 days CLARITHROMYCIN 39005594882 Active Corry Méndez LPN Act mike AMOXICILLIN 500 MG ORAL CAPSULE 2 po BID x 14 days for H. Pylori AMOXICILLIN 08576992635 Active Corry Méndez LPN Active PAROXETINE HCL 20 MG ORAL TABLET 1.5 po qd PAR OXETINE HCL 42970226239 Active Checo Conklin MD Active FLUTICASONE PROPIONATE 50 MCG/ACT NASAL SUSPENSION 2 s prays/nostril qd PRN Congestion/Allergies FLUTICASONE PROPIONATE 7424702617 9 No Longer Active Checo Conklin MD Active AMOXICILLIN 500 MG ORAL CAPSULE 2 po BID x 10 days 201 01/15/27 AMOXICILLIN 28819496131 No Longer Active Checo Conklin MD Activ e MIRALAX ORAL POWDER 8.5 to 17g po qd PRN Constipation POLYETHYLENE GLYCOL 3350 23657864335 Active Checo Conklin MD Active CLARITIN 10 MG ORAL TABLET 1 tablet by mouth daily as needed for allergies LORATADINE 79823468755 No Longer Active Checo Ortiz MD Active BACTRIM DS 800-160 MG ORAL TABLET 1 tab by mouth twice daily 201 12/19/26 TRIMETHOPRIM-SULFAMETHOXAZOLE 77914821914 No Longer Active Ragini Carrillo MD Active DIFLUCAN 150 MG ORAL TABLET 1 tablet by mouth qod 2015 FLUCONAZOLE 08556155394 No Longer Active Efren Medel [employer] ATTENDANT Act mike AZITHROMYCIN 250 MG ORAL TABLET 2 po qd x 1 day, then 1 po q d x 4 days AZITHROMYCIN 86550364535 No Longer Active Efren flores [employer] ATTENDANT Active FLAGYL 500 MG ORAL TABLET 1 tablet by mouth bid 04/13 METRONIDAZOLE 02841033716 No Longer Active Checo Conklin MD Acti ve FOCALIN XR 10 MG ORAL CAPSULE EXTENDED RELEASE 24 HOUR 1 po q a.m. DEXMETHYLPHENIDATE HCL 26689274926 Active Checo Conklin MD Active MAGNESIUM CITRATE 1.745 GM/30ML ORAL SOLUTION 150ml po BID P RN Constipation MAGNESIUM CITRATE 30490478249 No Longer Active Checo Conklin MD Active BACTROBAN 2 % EXTERNAL CREAM Apply to affected area BID for up to 10 days MUPIROCIN CALCIUM 93010688345 No Longer Active Checo Conklin MD Active HYDROCODONE-ACETAMINOPHEN 5-325 MG ORAL TABLET 1 tab b y mouth every 6 hours as needed HYDROCODONE-ACETAMINOPHEN 04319299905 No Longer Active Checo Conklin MD Active IBUPROFEN 800 MG ORAL TABLET 1 tab every 8 hours with food 03/20 IBUPROFEN 73199639335 No Longer Active Checo Conklin MD Active DIFLUCAN 150 MG ORAL TABLET 1 tablet by mouth if neede d, hold until symptoms start FLUCONAZOLE 18322234272 No Longer Active Checo Conklin MD Active BACTRIM DS 800-160 MG ORAL TABLET 1 tab by mouth twice daily 201 11/23/03 TRIMETHOPRIM-SULFAMETHOXAZOLE 85077956150 No Longer Active K bernice Méndez LPN Active HYDROCODONE-ACETAMINOPHEN 5-325 MG ORAL TABLET 0.5 to 1 tab by mouth every 6 hours as needed HYDROCODONE-ACETAMINOPHEN 80025555438 No Longer Active Checo Conklin MD Active ONDANSETRON 8 MG ORAL TABLET DISINTEGRATING place one tablet on tongue and allow to dissolve every 6 hours as needed for vomitting ONDANSETRON 58347055270 No Longer Active Checo Conklin MD Activ e COMPRO 25 MG RECTAL SUPPOSITORY insert or apply one garza ppository rectally as directed every 12 hours as needed for nausea PROCHLORPERAZINE 19791029716 No Longer Active Checo Conklin MD A ctive SUMATRIPTAN SUCCINATE 100 MG ORAL TABLET Take one PRN for migran e SUMATRIPTAN SUCCINATE 92154622211 No Longer Active Checo Conklin MD Active TRAVEL SICKNESS 25 MG ORAL TABLET CHEWABLE chew and sw allow one tablet every 6 hours as needed MECLIZINE HCL 91772569700 No Longer A ctive Checo Conklin MD Active BUPROPION HCL ER (SR) 100 MG ORAL TABLET EXTENDED RELE ASE 12 HOUR take one tablet by mouth one time daily for one week then take 1 two times daily BUPROPION HCL 70544246814 No Longer Active Checo gallagher MD Active TERBINAFINE HCL 250 MG ORAL TABLET take one table PO one time da moises TERBINAFINE HCL 12855286231 No Longer Active Checo Conklin MD Active METOCLOPRAMIDE HCL 10 MG ORAL TABLET take one PO tid PRN nausea METOCLOPRAMIDE HCL 17582979674 No Longer Active Checo Conklin MD Active DICLOFENAC SODIUM 75 MG ORAL TABLET DELAYED RELEASE 1 tablet by mouth twice daily PRN Knee pain DICLOFENAC SODIUM 48795460336 No Longer Active Checo Conklin MD Active LAMISIL 250 MG ORAL TABLET 1 po qd TERBINAFI NE HCL 34395398740 No Longer Active Checo Conklin MD Active REGLAN 10 MG ORAL TABLET 1 po TID PRN Nausea 3 METOCLOPRAMIDE HCL 52886490899 No Longer Active Checo Conklin MD Active CELEXA 20 MG ORAL TABLET 1 tablet by mouth daily 09/26 CITALOPRAM HYDROBROMIDE 43586465464 No Longer Active Checo Conklin MD Active AZITHROMYCIN 250 MG ORAL TABLET 2 po qd x 1 day, then 1 po q d x 4 days AZITHROMYCIN 86682646423 No Longer Active Checo Ortiz MD Active HYDROCODONE-ACETAMINOPHEN 5-325 MG ORAL TABLET 1 po q 6hr PRN Pa in HYDROCODONE-ACETAMINOPHEN 93297019834 No Longer Active Lenora Conklin MD Active PHENAZOPYRIDINE HCL 200 MG ORAL TABLET take 1 tab po TID for bladder pain PHENAZOPYRIDINE HCL 71679533663 No Longer Active Joe Conklin MD Active CIPRO 500 MG ORAL TABLET 1 tablet by mouth twice daily CIPROFLOXACIN HCL 04664629693 No Longer Active Dangelo Rangel MD Active HYDROCODONE-ACETAMINOPHEN 5-325 MG ORAL TABLET 1/2 to 1 po q 4 hours prn cough HYDROCODONE-ACETAMINOPHEN 26358708419 No Longer Activ candy Rangel MD Active BACTRIM DS 800-160 MG ORAL TABLET 1 po BID x 7 days 29/04/10 SULFAMETHOXAZOLE-TRIMETHOPRIM 54148191173 No Longer Active Checo Conklin MD Active PREDNISONE 20 MG ORAL TABLET 2 tabs daily for 3 days, 1 tab daily for 3 days, 1/2 tab daily for 2 days PREDNISONE 50678796413 No Longer Active Checo Conklin MD Active TRIAMCINOLONE ACETONIDE 0.1 % EXTERNAL OINTMENT Apply to affected areas TID for up to 2 weeks TRIAMCINOLONE ACETONIDE 83930818733 No Longer Active Checo Conklin MD Active CEFDINIR 300 MG ORAL CAPSULE by mouth twice a day 2013 CEFDINIR 43567807559 No Longer Active Dangelo Rangel MD Acti ve BUPROPION HCL ER (SMOKING DET) 150 MG ORAL TABLET EXTE NDED RELEASE 12 HOUR 1 a day for 1 week then 1 twice a day BUPROPION HCL (SMOKING DETER) 95707970538 No Longer Active Checo Conklin MD Active SIMVASTATIN 20 MG ORAL TABLET 1 po qd SIMVASTAT IN 97868577621 Active Checo Conklin MD Active CHANTIX STARTING MONTH KARTHIK 0.5 MG X 11 & 1 MG X 42 ORA L TABLET 0.5mg daily for 3 days, then 0.5mg BID for 4 days, then 1mg BID VARENICLINE TARTRATE 17999994512 No Longer Active Checo Conklin MD Activ e XANAX 0.5 MG ORAL TABLET 1 po BID PRN anxiety A LPRAZOLAM 27614430664 Active Checo Conklin MD Active CONCERTA 18 MG ORAL TABLET EXTENDED RELEASE 1 po q a.m. METHYLPHENIDATE HCL 23866933195 No Longer Active Checo Conklin MD Active AMBIEN 5 MG ORAL TABLET 1 po qHS PRN Insomnia Z OLPIDEM TARTRATE 25315300722 Active Checo Conklin MD Active TRAZODONE HCL 100 MG ORAL TABLET 0.5 to 1 po qHS PRN Insomnia 20 30/07/08 TRAZODONE HCL 03357181536 No Longer Active Checo Conklin MD Active FIORICET 325-50-40 MG TAB 1 tablet by mouth four times daily as needed [id number] 43136519292 No Longer Active Checo Conklin MD Active PHENERGAN CREAM* 25mg applied to wrist q6hr PRN Nausea PHENERGAN CREAM* No Longer Active Checo Conklin MD A ctive FLONASE 50 MCG/ACT NASAL SUSPENSION 1 spray each nostril am and hs FLUTICASONE PROPIONATE 63604199911 No Longer Active Checo Conklin MD Active ANTIPYRINE-BENZOCAINE 5.4-1.4 % OTIC SOLUTION 1-2 drops in affec yohannes ear BENZOCAINE-ANTIPYRINE 27708700235 No Longer Active Checo Conklin MD Active CEFDINIR 300 MG ORAL CAPSULE 1 po bid CEFDINIR 89843400758 No Longer Active Checo Conklin MD Active PREDNISONE 20 MG ORAL TABLET 2 tabs daily for 3 days, 1 tab daily for 3 days, 1/2 tab daily for 2 days PREDNISONE 38015905161 No Longer Active Checo Conklin MD Active AZITHROMYCIN 250 MG ORAL TABLET 2 po qd x 1 day, then 1 po q d x 4 days AZITHROMYCIN 34637375147 No Longer Active Checo Ortiz MD Active PREDNISONE 20 MG ORAL TABLET 2 tabs daily for 3 days, 1 tab daily for 3 days, 1/2 tab daily for 2 days PREDNISONE 90892524189 No Longer Active Checo Conklin MD Active ZITHROMAX Z-KARTHIK 250 MG ORAL TABLET 2 today, then 1 daily for 4 d ays AZITHROMYCIN 07117131720 No Longer Active Paul Hamlin MD Active FOCALIN XR 10 MG ORAL CAPSULE EXTENDED RELEASE 24 HOUR 1 po q a. m. DEXMETHYLPHENIDATE HCL 83526951851 No Longer Active Paul Hamlin MD Active PERCOCET 10-325 MG ORAL TABLET 1 tablet every 6 hours as needed for pain OXYCODONE-ACETAMINOPHEN 77274131143 No Longer Active Paul Hamlin MD Active LORTAB 5-500 MG ORAL TABLET 1/2 to 1 tablet by mouth e very 4 hours as needed for pain HYDROCODONE-ACETAMINOPHEN 18660240958 No Longer Active Checo Conklin MD Active FOCALIN XR 15 MG ORAL CAPSULE EXTENDED RELEASE 24 HOUR 1 po q a. m. DEXMETHYLPHENIDATE HCL 75793617957 No Longer Active Checo Conklin MD Active ZOFRAN ODT 4 MG ORAL TABLET DISINTEGRATING 1 po q6hr PRN Nausea ONDANSETRON 21716812558 No Longer Active Checo Conklin MD Active PERCOCET 5-325 MG ORAL TABLET 1 tablet by mouth every 6 hour s as needed OXYCODONE-ACETAMINOPHEN 20838619023 No Longer Active Checo Conklin MD Active PYRIDIUM 200 MG ORAL TABLET take 1 tab po TID prn urinary pain. PHENAZOPYRIDINE HCL 35735606701 No Longer Active Checo Joshua Active FLUCONAZOLE 150 MG ORAL TABLET take 1 tab po qday once FLUCONAZOLE 73654943596 No Longer Active Dangelo Rangel MD Acti ve CIPRO 500 MG ORAL TABLET 1 tablet by mouth twice daily CIPROFLOXACIN HCL 19958115842 No Longer Active Dangelo Rangel MD Active PYRIDIUM 200 MG ORAL TABLET take 1 tab po TID prn urinary pain. PYRIDIUM 200 MG ORAL TABLET 9687141 PHENAZOPYRIDINE HCL Inactive PERCOCET 5-325 MG ORAL TABLET 1 tablet by mouth every 6 hour s as needed PERCOCET 5-325 MG ORAL TABLET 2429642 OXYCODONE-ACETAMINOPHEN Inactive ZOFRAN ODT 4 MG ORAL TABLET DISINTEGRATING 1 po q6hr PRN Nausea ZOFRAN ODT 4 MG ORAL TABLET DISINTEGRATING 643119 ONDAN SETRON Inactive FOCALIN XR 15 MG ORAL CAPSULE EXTENDED RELEASE 24 HOUR 1 po q a. m. FOCALIN XR 15 MG ORAL CAPSULE EXTENDED RELEASE 24 HOUR DEXMETHYLPHENIDATE HCL Inactive LORTAB 5-500 MG ORAL TABLET 1/2 to 1 tablet by mouth e very 4 hours as needed for pain LORTAB 5-500 MG ORAL TABLET 777173 HYDROCODONE-ACETAMINOPHEN Inactive PERCOCET 10-325 MG ORAL TABLET 1 tablet every 6 hours as needed for pain PERCOCET 10-325 MG ORAL TABLET 6016959 OXYCODONE-ACETAMI NOPHEN Inactive FOCALIN XR 10 MG ORAL CAPSULE EXTENDED RELEASE 24 HOUR 1 po q a. m. FOCALIN XR 10 MG ORAL CAPSULE EXTENDED RELEASE 24 HOUR DEXMETHYLPHENIDATE HCL Inactive CEFDINIR 300 MG ORAL CAPSULE 1 po bid CEFDINI R 300 MG ORAL CAPSULE 438895 CEFDINIR Inactive ANTIPYRINE-BENZOCAINE 5.4-1.4 % OTIC SOLUTION 1-2 drops in affec yohannes ear ANTIPYRINE-BENZOCAINE 5.4-1.4 % OTIC SOLUTION 236150 BENZOCAINE-ANTIPYRINE Inactive FLONASE 50 MCG/ACT NASAL SUSPENSION 1 spray each nostril am and hs FLONASE 50 MCG/ACT NASAL SUSPENSION 4231725 FLUTICASONE PROPIONATE I nactive PHENERGAN CREAM* 25mg applied to wrist q6hr PRN Nausea PHENERGAN CREAM* Inactive FIORICET 325-50-40 MG TAB 1 tablet by mouth four times daily as needed FIORICET 325-50-40 MG TAB ACETAMINOPHEN-C AFF-BUTALBITAL Inactive TRAZODONE HCL 100 MG ORAL TABLET 0.5 to 1 po qHS PRN Insomnia 20 30/07/08 TRAZODONE HCL 100 MG ORAL TABLET 013388 TRAZODONE HCL Inactive CONCERTA 18 MG ORAL [...] cough HYDROCODONE-ACETAMINOPHEN 5-325 MG ORAL TABLET 8 44338 HYDROCODONE-ACETAMINOPHEN Inactive PHENAZOPYRIDINE HCL 200 MG ORAL TABLET take 1 tab po TID for bladder pain PHENAZOPYRIDINE HCL 200 MG ORAL TABLET 7526371 PHENAZOPYRIDINE HCL Inactive HYDROCODONE-ACETAMINOPHEN 5-325 MG ORAL TABLET 1 po q 6hr PRN Pa in HYDROCODONE-ACETAMINOPHEN 5-325 MG ORAL TABLET 698839 HYDROCODONE-ACETAMINOPHEN Inactive CELEXA 20 MG ORAL TABLET 1 tablet by mouth daily 09/26 CELEXA 20 MG ORAL TABLET 934444 CITALOPRAM HYDROBROMIDE Inactive REGLAN 10 MG ORAL TABLET 1 po TID PRN Nausea 3 REGLAN 10 MG ORAL TABLET 150696 METOCLOPRAMIDE HCL Inactive LAMISIL 250 MG ORAL TABLET 1 po qd L AMISIL 250 MG ORAL TABLET 177647 TERBINAFINE HCL Inactive DICLOFENAC SODIUM 75 MG ORAL TABLET DELAYED RELEASE 1 tablet by mouth twice daily PRN Knee pain DICLOFENAC SODIUM 75 MG ORAL TABLET DELAYED RELEASE 970393 DICLOFENAC SODIUM Inactive METOCLOPRAMIDE HCL 10 MG ORAL TABLET take one PO tid PRN nausea METOCLOPRAMIDE HCL 10 MG ORAL TABLET 403741 METOCLOPRAM ZACH HCL Inactive TERBINAFINE HCL 250 MG ORAL TABLET take one table PO one time da moises TERBINAFINE HCL 250 MG ORAL TABLET 254177 TERBINAFINE H CL Inactive BUPROPION HCL ER [...] SICKNESS 25 M G ORAL TABLET CHEWABLE 134986 MECLIZINE HCL Inactive SUMATRIPTAN SUCCINATE 100 MG ORAL TABLET Take one PRN for migran e SUMATRIPTAN SUCCINATE 100 MG ORAL TABLET 380576 SUMATRIPTAN SUCCINATE Inactive COMPRO 25 MG RECTAL SUPPOSITORY insert or apply one garza ppository rectally as directed every 12 hours as needed for nausea COMPRO 25 MG RECTAL SUPPOSITORY 831633 PROCHLORPERAZINE Inactive ONDANSETRON 8 MG ORAL TABLET DISINTEGRATING place one tablet on tongue and allow to dissolve every 6 hours as needed for vomitting ONDANSETRON 8 MG ORAL TABLET DISINTEGRATING 108223 ONDANSETRON Inactive HYDROCODONE-ACETAMINOPHEN 5-325 MG ORAL TABLET 0.5 to 1 tab by mouth every 6 hours as needed HYDROCODONE-ACETAMIN OPHEN 5-325 MG ORAL TABLET 060458 HYDROCODONE-ACETAMINOPHEN Inactive BACTRIM DS 800-160 MG ORAL TABLET 1 tab by mouth twice daily 201 11/23/03 BACTRIM DS 800-160 MG ORAL TABLET 082077 TRIMETHOPRIM-SULFAMETHOXAZOLE Inactive DIFLUCAN 150 MG ORAL TABLET 1 tablet by mouth if neede d, hold until symptoms start DIFLUCAN 150 MG ORAL TABLET 551411 FLUCONAZ OLE Inactive IBUPROFEN 800 MG ORAL TABLET 1 tab every 8 hours with food 03/20 IBUPROFEN 800 MG ORAL TABLET 243729 IBUPROFEN Krupa ctive HYDROCODONE-ACETAMINOPHEN 5-325 MG ORAL TABLET 1 tab b y mouth every 6 hours as needed HYDROCODONE-ACETAMINOPHEN 5-325 MG ORAL TABLET 123929 HYDROCODONE-ACETAMINOPHEN Inactive BACTROBAN 2 % EXTERNAL CREAM Apply to affected area BID for up to 10 days BACTROBAN 2 % EXTERNAL CREAM 313053 MUPIROCIN CA LCIUM Inactive MAGNESIUM CITRATE 1.745 GM/30ML ORAL SOLUTION 150ml po BID P RN Constipation MAGNESIUM CITRATE 1.745 GM/30ML ORAL SOLUTION 10 52386 MAGNESIUM CITRATE Inactive DIFLUCAN 150 MG ORAL TABLET 1 tablet by mouth qod 2015 DIFLUCAN 150 MG ORAL TABLET 904195 FLUCONAZOLE Inactive BACTRIM DS 800-160 MG ORAL TABLET 1 tab by mouth twice daily 201 12/19/26 BACTRIM DS 800-160 MG ORAL TABLET 994643 TRIMETHOPRIM-SULFAMETHOXAZOLE Inactive CLARITIN 10 MG ORAL TABLET 1 tablet by mouth daily as needed for allergies CLARITIN 10 MG ORAL TABLET 946716 LORATADINE I nactive FLUTICASONE PROPIONATE 50 MCG/ACT NASAL SUSPENSION 2 s prays/nostril qd PRN Congestion/Allergies FLUTICASONE PROPION ATE 50 MCG/ACT NASAL SUSPENSION 2117518 FLUTICASONE PROPIONATE Inactive CIPRO 500 MG ORAL TABLET 1 tablet by mouth twice daily CIPRO 500 MG ORAL TABLET 963121 CIPROFLOXACIN HCL Inactive FLUCONAZOLE 150 MG ORAL TABLET take 1 tab po qday once FLUCONAZOLE 150 MG ORAL TABLET 213994 FLUCONAZOLE Inactive ZITHROMAX Z-KARTHIK 250 MG ORAL TABLET 2 today, then 1 daily for 4 d ays ZITHROMAX Z-KARTHIK 250 MG ORAL TABLET 522764 AZITHROMYCIN Inactive PREDNISONE 20 MG ORAL TABLET 2 tabs daily for 3 days, 1 tab daily for 3 days, 1/2 tab daily for 2 days PREDNISONE 20 MG ORAL T ABLET 136824 PREDNISONE Inactive AZITHROMYCIN 250 MG ORAL TABLET 2 po qd x 1 day, then 1 po q d x 4 days AZITHROMYCIN 250 MG ORAL TABLET 288228 AZITHROMY SPARKLE Inactive PREDNISONE 20 MG ORAL TABLET 2 tabs daily for 3 days, 1 tab daily for 3 days, 1/2 tab daily for 2 days PREDNISONE 20 MG ORAL TABLET 642426 PREDNISONE Inactive CEFDINIR 300 MG ORAL CAPSULE by mouth twice a day 2013 CEFDINIR 300 MG ORAL CAPSULE 320809 CEFDINIR Inactive TRIAMCINOLONE ACETONIDE 0.1 % EXTERNAL OINTMENT Apply to affected areas TID for up to 2 weeks TRIAMCINOLONE ACETON ZACH 0.1 % EXTERNAL OINTMENT 4813292 TRIAMCINOLONE ACETONIDE Inactive PREDNISONE 20 MG ORAL TABLET 2 tabs daily for 3 days, 1 tab daily for 3 days, 1/2 tab daily for 2 days PREDNISONE 20 MG ORAL T ABLET 230901 PREDNISONE Inactive BACTRIM DS 800-160 MG ORAL TABLET 1 po BID x 7 days 29/04/10 BACTRIM DS 800-160 MG ORAL TABLET 720731 SULFAMETHOXAZOLE-TRIMETHOP RIM Inactive CIPRO 500 MG ORAL TABLET 1 tablet by mouth twice daily CIPRO 500 MG ORAL TABLET 150984 CIPROFLOXACIN HCL Inactive AZITHROMYCIN 250 MG ORAL TABLET 2 po qd x 1 day, then 1 po q d x 4 days AZITHROMYCIN 250 MG ORAL TABLET 797233 AZITHROMY SPARKLE Inactive FLAGYL 500 MG ORAL TABLET 1 tablet by mouth bid 04/13 FLAGYL 500 MG ORAL TABLET 456842 METRONIDAZOLE Inactive AZITHROMYCIN 250 MG ORAL TABLET 2 po qd x 1 day, then 1 po q d x 4 days AZITHROMYCIN 250 MG ORAL TABLET 557895 AZITHROMY SPARKLE Inactive AMOXICILLIN 500 MG ORAL CAPSULE 2 po BID x 10 days 201 01/15/27 AMOXICILLIN 500 MG ORAL CAPSULE 497651 AMOXICILLIN Inactive Immunizations Vaccine Administration Date Value Standard Michael cription TB-PPD (tuberculin purified protein derivative), intra dermal administration Tubersol Vital Signs Date Name Value Unit Range Description blood pressure, diastolic 75 mm[Hg] BP mathew [...] count 215 10^3/MM^3 10*3/mm3 142-424 Lab Report: CBC-QUEST, COMPREHENSIVE MET ABOLIC PANEL, LIPID PANEL - Chemistry cholesterol, serum 192 mg/dL 051-165 8259/02/20 HDL cholesterol, serum 31 mg/dL > OR = 46 triglyceride, serum, fasting 138 mg/dL <150 LDL cholesterol, serum 133 MG/DL (CALC) mg/dL <130 cholesterol/HDL ratio, serum 6.2 (calc) < OR = 5.0 Lab Report: CBC-QUEST, COMPREHENSIVE MET ABOLIC PANEL, LIPID PANEL - Hematology mean corpuscular hemoglobin, RBC 31.4 pg 27. 0-33.0 mean corpuscular hemoglobin concentration, RBC 32.6 G/DL % 32.0-36.0 red blood cell distribution width 13.5 % 11 .0-15.0 platelet count 218 THOUSAND/UL 10*3/mm3 843-252 5232/02/20 mean platelet volume 9.7 fL 7.5-12.5 mean corpuscular volume, RBC 96.5 fL 80.0-10 0.0 hematocrit, blood 42.2 % 35.0-45.0 hemoglobin, blood 13.7 g/dL 11.7-15.5 erythrocyte (RBC) count 4.37 MILLION/UL 10*6/mm3 3.80-5. 10 leukocyte count, blood 8.7 THOUSAND/UL 10*3/mm3 3.8-10.8 Lab Report: Comp. Metabolic Panel, Eryth rocyte Sed Rate, UADIP W/MICRO, ... - Chemistry sodium, serum 139 mmol/L 686-662 8833/11/28 carbon dioxide, venous blood 26.0 mmol/L 21.0-32 [...] 5.0-8.5 Encounters Code Encounter Date Provider Facility CPT-22560 Level 3 Est. Patient 11:24:55 MESSENGER FLOORPERSON Efren almendarez [facility] CPT-33074 Level 3 Est. Patient 13:05:44 CDT Paul Hamlin MD [facility] CPT-26775 Level 3 Est. Patient 11:29:55 CDT Checo Conklin MD [facility] CPT-21173 Level 4 Est. Patient 11:08:12 MESSENGER FLOORPERSON Checo Conklin MD [facility] CPT-63591 Level 4 Est. Patient 16:06:48 MESSENGER FLOORPERSON Checo Conklin MD [facility] CPT-03536 Level 3 Est. Patient 09:11:49 CDT Efren almendarez [facility] CPT-85302 Level 2 Est. Patient 19:53:27 CDT Tanner hill MD [facility] CPT-45770 Level 3 Est. Patient 09:15:34 CDT Efren almendarez [facility] CPT-34276 Level 3 Est. Patient 11:28:51 MESSENGER FLOORPERSON Efren almendarez [facility] CPT-73851 Level 4 Est. Patient 13:55:46 MESSENGER FLOORPERSON Checo Conklin MD [facility] CPT-06280 Level 4 Est. Patient 17:10:53 CDT Checo Conklin MD [facility] CPT-10423 Level 3 Est. Patient 15:56:22 CDT Checo Conklin MD [facility] CPT-54373 Level 3 Est. Patient 15:29:07 CDT Checo Conklin MD [facility] CPT-74758 Level 3 Est. Patient 14:38:41 CDT Checo Conklin MD [facility] CPT-09872 Level 3 Est. Patient 15:22:03 MESSENGER FLOORPERSON Thomas reynolds DO [facility] CPT-28497 Level 3 Est. Patient 13:34:17 MESSENGER FLOORPERSON Checo Conklin MD [facility] CPT-51495 Level 3 Est. Patient 12:29:32 CDT Dangelo arroyo MD [facility] CPT-68242 Level 3 Est. Patient 16:53:02 CDT Checo Conklin MD [facility] CPT-65939 Level 3 Est. Patient 16:37:13 CDT Checo Conklin MD [facility] CPT-05369 Level 3 Est. Patient 16:16:59 CDT Paul Hamlin MD [facility] CPT-38700 Level 3 Est. Patient 14:20:13 CDT Dangelo arroyo MD [facility] CPT-63387 Level 4 Est. Patient 11:29:33 CDT Checo Conklin MD [facility] CPT-01360 Level 3 Est. Patient 17:08:31 CDT Checo Conklin MD [facility] CPT-79138 Level 3 Est. Patient 16:50:42 MESSENGER FLOORPERSON Checo Conklin MD [facility] CPT-36927 Level 4 Est. Patient 09:26:08 MESSENGER FLOORPERSON Checo Conklin MD [facility] CPT-34606 Level 3 Est. Patient 11:37:10 CDT Checo Conklin MD [facility] CPT-02158 Level 4 Est. Patient 14:07:38 CDT Checo Conklin MD [facility] CPT-35839 Level 3 Est. Patient 09:54:41 CDT Checo Conklin MD [facility] CPT-66506 Level 3 Est. Patient 11:10:54 CDT Paul Hamlin MD [facility] CPT-93602 Level 3 Est. Patient 14:16:56 MESSENGER FLOORPERSON Checo Conklin MD [facility] CPT-06582 Level 3 Est. Patient 11:04:11 MESSENGER FLOORPERSON Checo Conklin MD [facility] CPT-21767 Level 3 Est. Patient 17:09:26 CDT Dangelo arroyo MD [facility] CPT-95890 Level 3 Est. Patient 16:54:37 CDT Checo Conklin MD [facility] Procedures Code Procedure Name Date Entry Date Standard Desc ription CPT-78648 Abd compl w upright - XRAY USE ONLY 1 1:36:54 MESSENGER FLOORPERSON CPT-15092 UA w micro - LAB USE ONLY 17:06:46 CDT 2015 CPT-57580 [facility] Qual - LAB USE ONLY 17:06:46 CDT 05/06 CPT-04907 CMP - LAB USE ONLY 17:06:46 CDT CPT-27595 CBC with Diff - LAB USE ONLY 17:06:45 CDT 2 CPT-35637 Venipuncture Draw Fee 17:06:45 CDT CPT-LR Lesion Removal 19:53:27 CDT CPT-OV Office Visit 11:31:28 CDT CPT-08936 Tubersol 09:39:29 CDT CPT-J2550 Phenergan 25 mg (Promethazine) 13:59:02 MESSENGER FLOORPERSON CPT-J1885 Toradol 60 mg (Ketorolac) 13:59:02 MESSENGER FLOORPERSON 2012
--- OUTSIDE RECORDS SUMMARY | 2019-09-29 01:26 | XMS REPORT | Clinical Summary ---
Author Author Admin, Bethany Gonzales Organization [facility] Address Unknown Phone Unavailable Allergies, Adverse [...] MD Urinary tract infection, site not specified ANXIETY 300.00 Active Checo Conklin MD Anxiety state, unspecified A D D 314.00 Active Checo Conklin MD Attention deficit disorder of childhood without mention of hyperactivity ABDOMINAL PAIN RIGHT LOWER QUADRANT 789.03 Resolved Checo Conklin MD Abdominal pain, right lower quadrant HEADACHE, TENSION 307.81 Resolved Checo Conklin MD Tension headache PHARYNGITIS 462 Resolved Checo Conklin MD Acute pharyngitis TOBACCO ABUSE 305.1 Active Paul Hamlin MD Tobacco use disorder HEALTH SCREENING V70.0 Active Checo Joshua Routine general medical [...] mass in breast Breast mass, right 611.72 Active Vicky Joshua Lump or mass in breast Mastalgia 611.71 [...] pain, unspecified site Knee pain, right 719.46 Active Checo Joshua Pain in joint involving lower leg Vertigo 780.4 Active Checo Conklin MD Dizziness and giddiness Constipation 564.00 Active Checo Conklin MD Constipation, unspecified FH BREAST CANCER ICD-V16.3 Inactive Checo [...] Conklin MD Insomnia ICD-780.52 Inactive Checo Joshua Mastalgia ICD-611.71 Inactive Checo Joshua Sinusitis ICD-461.9 Inactive Checo Conklin MD Insect bite ICD-919.4 Inactive Checo Conklin MD Carbuncle/furuncle NOS ICD-680.9 Inactive Hilaria Conklin MD BRONCHITIS, ACUTE ICD-466.0 Inactive Checo gallagher MD Abdominal pain ICD-789.00 Inactive Checo ngo MD Medication List Medication Instructions Start Date Stop Date Generic Name NDC Status Provider Patient Instruction MAGNESIUM CITRATE 1.745 GM/30ML ORAL SOLN 150ml po BID PRN C onstipation MAGNESIUM CITRATE 76788218726 Active Checo Conklin MD Active MIRALAX PACK 1 po qd PRN Constipation POLYETHYL JOEL GLYCOL 3350 94109199756 Active Checo Conklin MD Active HYDROCODONE-ACETAMINOPHEN 5-325 MG TABS 0.5 to 1 tab b y mouth every 6 hours as needed HYDROCODONE-ACETAMINOPHEN 33142106820 No Longer Active Checo Conklin MD Active ONDANSETRON [address] one tablet on tongue and allow to dissolve every 6 hours as needed for vomitting ONDANSETRO N 84560449346 No Longer Active Cheoc Conklin MD Active COMPRO 25 MG RECTAL SUPP insert or apply one supposit ory rectally as directed every 12 hours as needed for nausea PROCHLORPERA ZINE 73416303456 No Longer Active Checo Conklin MD Active SUMATRIPTAN SUCCINATE 100 MG ORAL TABS Take one PRN for migrane SUMATRIPTAN SUCCINATE 44801174791 No Longer Active Checo Conklin MD Active TRAVEL SICKNESS 25 MG ORAL CHEW chew and swallow one t ablet every 6 hours as needed MECLIZINE HCL 07074749424 No Longer Active Joe Conklin MD Active BUPROPION HCL ER (SR) 100 MG ORAL [id number] take one t ablet by mouth one time daily for one week then take 1 two times daily BUPROPION HCL 03907894615 No Longer Active Checo Conklin MD Activ e TERBINAFINE HCL 250 MG ORAL TABS take one table PO one time abran y TERBINAFINE HCL 31373532196 No Longer Active Checo Conklin MD Active METOCLOPRAMIDE HCL 10 MG ORAL TABS take one PO tid PRN nausea 20 29/12/14 METOCLOPRAMIDE HCL 68736443094 No Longer Active Checo Conklin MD Active DICLOFENAC SODIUM 75 MG TBEC 1 tablet by mouth twice daily P RN Knee pain DICLOFENAC SODIUM 51328724234 No Longer Active Checo Conklin MD Active LAMISIL 250 MG TAB 1 po qd TERBINAFINE HCL 548 16014005 No Longer Active Checo Conklin MD Active REGLAN 10 MG TAB 1 po TID PRN Nausea METOCLOPRA MIDE HCL 73135350806 No Longer Active Checo Conklin MD Active CELEXA 20 MG TABS 1 tablet by mouth daily CITALOPRAM HYDROBROMIDE 12440649555 No Longer Active Checo Conklin MD Activ e AZITHROMYCIN 250 MG TABS 2 po qd x 1 day, then 1 po qd x 4 days AZITHROMYCIN 39449295274 No Longer Active Checo Conklin MD Active HYDROCODONE-ACETAMINOPHEN 5-325 MG TABS 1 po q 6hr PRN Pain 2013 HYDROCODONE-ACETAMINOPHEN 98994239036 No Longer Active Lenora Conklin MD Active PHENAZOPYRIDINE HCL 200 MG TABS take 1 tab po TID for bladder pa in PHENAZOPYRIDINE HCL 95785250105 No Longer Active Checo Joshua Active CIPRO 500 MG TAB 1 tablet by mouth twice daily CIPROFLOXACIN HCL 66721467762 No Longer Active Dangelo Rangel MD Active HYDROCODONE-ACETAMINOPHEN 5-325 MG TABS 1/2 to 1 po q 4 hour s prn cough HYDROCODONE-ACETAMINOPHEN 24220201535 No Longer Activ e Dangelo Rangel MD Active BACTRIM DS 800-160 MG TABS 1 po BID x 7 days 0 SULFAMETHOXAZOLE-TRIMETHOPRIM 82471152873 No Longer Active Checo Conklin MD Active PREDNISONE 20 MG TAB 2 tabs daily for 3 days, 1 t ab daily for 3 days, 1/2 tab daily for 2 days PREDNISONE 17246609609 No Longer Active Checo Conklin MD Active TRIAMCINOLONE ACETONIDE 0.1 % OINT Apply to affected a reas TID for up to 2 weeks TRIAMCINOLONE ACETONIDE 50891373211 No Longer A ctive Checo Conklin MD Active CEFDINIR 300 MG CAPS by mouth twice a day CEFDI JAZZY 71062844292 No Longer Active Dangelo Rangel MD Active BUPROPION HCL (SMOKING DETER) 150 MG [id number] 1 a day for 1 week then 1 twice a day BUPROPION HCL (SMOKING DETER) 18168064096 No Lo nger Active Checo Conklin MD Active SIMVASTATIN 20 MG TABS 1 po qd SIMVASTATIN 0237541909 5 Active Checo Conklin MD Active CHANTIX STARTING MONTH KARTHIK 0.5 MG X 11 & 1 MG X 42 TAB S 0.5mg daily for 3 days, then 0.5mg BID for 4 days, then 1mg BID VARENICLINE TARTRATE 71327082845 No Longer Active Checo Conklin MD Activ e XANAX 0.5 MG TABS 1 po BID PRN anxiety ALPRAZOLAM 43891129653 Active Checo Conklin MD Active CONCERTA 18 MG CR-TABS 1 po q a.m. METHYLPHENID ATE HCL 78772706336 No Longer Active Checo Conklin MD Active AMBIEN 5 MG TAB 1 po qHS PRN Insomnia ZOLPIDEM TARTRATE 87609972770 Active Checo Conklin MD Active TRAZODONE HCL 100 MG TAB 0.5 to 1 po qHS PRN Insomnia TRAZODONE HCL 97272143836 No Longer Active Checo Conklin MD Acti ve FIORICET 325-50-40 MG TAB 1 tablet by mouth four times daily as needed [id number] 86426876903 No Longer Active Checo Conklin MD Active PHENERGAN CREAM* 25mg applied to wrist q6hr PRN Nausea PHENERGAN CREAM* No Longer Active Checo Gonzales ctive FLONASE 50 MCG/ACT SUSP 1 spray each nostril am and hs FLUTICASONE PROPIONATE 96301505479 No Longer Active Checo Conklin MD Activ e ANTIPYRINE-BENZOCAINE 5.4-1.4 % SOLN 1-2 drops in affected ear BENZOCAINE-ANTIPYRINE 55772963964 No Longer Active Checo Conklin MD Active CEFDINIR 300 MG CAPS 1 po bid CEFDINIR 46309104 120 No Longer Active Checo Conklin MD Active PREDNISONE 20 MG TAB 2 tabs daily for 3 days, 1 t ab daily for 3 days, 1/2 tab daily for 2 days PREDNISONE 10412670315 No Longer Active Aracelis Conklin MD Active AZITHROMYCIN 250 MG TABS 2 po qd x 1 day, then 1 po qd x 4 days AZITHROMYCIN 06785609742 No Longer Active Checo Conklin MD Active PREDNISONE 20 MG TAB 2 tabs daily for 3 days, 1 t ab daily for 3 days, 1/2 tab daily for 2 days PREDNISONE 40486095397 No Longer Active Checo Conklin MD Active ZITHROMAX Z-KARTHIK 250 MG TABS 2 today, then 1 daily for 4 days 201 09/18/28 AZITHROMYCIN 63262662975 No Longer Active Paul Hamlin MD Active FOCALIN XR 10 MG [id number] 1 po q a.m. D EXMETHYLPHENIDATE HCL 73656944378 No Longer Active Paul Hamlin MD Activ e PERCOCET 10-325 MG TABS 1 tablet every 6 hours as needed for pain OXYCODONE-ACETAMINOPHEN 13559874479 No Longer Active Paul Hamlin MD Active LORTAB 5 5-500 MG TABS 1/2 to 1 tablet by mouth flaquito ry 4 hours as needed for pain HYDROCODONE-ACETAMINOPHEN 17099631903 No Longer Active Checo Conklin MD Active FOCALIN XR 15 MG [id number] 1 po q a.m. D EXMETHYLPHENIDATE HCL 93514664430 No Longer Active Checo Conklin MD Activ e ZOFRAN ODT 4 MG TBDP 1 po q6hr PRN Nausea ONDAN SETRON 40846405301 No Longer Active Checo Conklin MD Active PERCOCET 5-325 MG TABS 1 tablet by mouth every 6 hours as needed OXYCODONE-ACETAMINOPHEN 31352058507 No Longer Active Checo Conklin MD Active PYRIDIUM 200 MG TABS take 1 tab po TID prn urinary pain. 0 PHENAZOPYRIDINE HCL 52523065937 No Longer Active Checo Conklin MD Active FLUCONAZOLE 150 MG TABS take 1 tab po qday once 04/06 FLUCONAZOLE 12381533788 No Longer Active Dangelo Rangel MD Acti ve CIPRO 500 MG TAB 1 tablet by mouth twice daily CIPROFLOXACIN HCL 70048700200 No Longer Active Dangelo Rangel MD Active PYRIDIUM 200 MG TABS take 1 tab po TID prn urinary pain. 0 PYRIDIUM 200 MG TABS 6306856 PHENAZOPYRIDINE HCL Inactive PERCOCET 5-325 MG TABS 1 tablet by mouth every 6 hours as needed PERCOCET 5-325 MG TABS 7306374 OXYCODONE-ACETAMINOPHEN I nactive ZOFRAN ODT 4 MG TBDP 1 po q6hr PRN Nausea ZOFRAN ODT 4 MG TBDP 786993 ONDANSETRON Inactive FOCALIN XR 15 MG [id number] 1 po q a.m. F OCALIN XR 15 MG [id number] DEXMETHYLPHENIDATE HCL Inactive LORTAB 5 5-500 MG TABS 1/2 to 1 tablet by mouth flaquito ry 4 hours as needed for pain LORTAB 5 5-500 MG TABS HYDROCODONE-A CETAMINOPHEN Inactive PERCOCET 10-325 MG TABS 1 tablet every 6 hours as needed for pain PERCOCET 10-325 MG TABS 8477027 OXYCODONE-ACETAMINOPHEN Inactive FOCALIN XR 10 MG [id number] 1 po q a.m. F OCALIN XR 10 MG [id number] DEXMETHYLPHENIDATE HCL Inactive CEFDINIR 300 MG CAPS 1 po bid CEFDINIR 300 MG CAPS 20 0346 CEFDINIR Inactive ANTIPYRINE-BENZOCAINE 5.4-1.4 % SOLN 1-2 drops in affected ear ANTIPYRINE-BENZOCAINE 5.4-1.4 % SOLN 998710 BENZOCAINE-ANTIPYRINE I nactive FLONASE 50 MCG/ACT SUSP 1 spray each nostril am and hs FLONASE 50 MCG/ACT SUSP 043047 FLUTICASONE PROPIONATE Inactive PHENERGAN CREAM* 25mg applied to wrist q6hr PRN Nausea PHENERGAN CREAM* Inactive FIORICET 325-50-40 MG TAB 1 tablet by mouth four times daily as needed FIORICET 325-50-40 MG TAB ACETAMINOPHEN-C AFF-BUTALBITAL Inactive TRAZODONE HCL 100 MG TAB 0.5 to 1 po qHS PRN Insomnia TRAZODONE HCL 100 MG TAB 127162 TRAZODONE HCL Inactive CONCERTA 18 MG CR-TABS [...] s prn cough HYDROCODONE-ACETAMINOPHEN 5-325 MG TABS 916968 HYDROCODONE-ACETAMINOPHEN Inactive PHENAZOPYRIDINE HCL 200 MG TABS take 1 tab po TID for bladder pa in PHENAZOPYRIDINE HCL 200 MG TABS 0713716 PHENAZOPYRIDINE HCL Inactive HYDROCODONE-ACETAMINOPHEN 5-325 MG TABS 1 po q 6hr PRN Pain 2013 HYDROCODONE-ACETAMINOPHEN 5-325 MG TABS 676460 HYDROCODONE-ACETAMINOPHEN Inactive CELEXA 20 MG TABS 1 tablet by mouth daily CELEXA 20 MG TABS 750516 CITALOPRAM HYDROBROMIDE Inactive REGLAN 10 MG TAB 1 po TID PRN Nausea REGLAN 10 MG TAB 478385 METOCLOPRAMIDE HCL Inactive LAMISIL 250 MG TAB 1 po qd LAMISIL 250 MG TAB 441124 TERBINAFINE HCL Inactive DICLOFENAC SODIUM 75 MG TBEC 1 tablet by mouth twice daily P RN Knee pain DICLOFENAC SODIUM 75 MG TBEC 966644 DICLOFENAC S ODIUM Inactive METOCLOPRAMIDE HCL 10 MG ORAL TABS take one PO tid PRN nausea 20 29/12/14 METOCLOPRAMIDE HCL 10 MG ORAL TABS 989185 METOCLOPRAMID E HCL Inactive TERBINAFINE HCL 250 MG ORAL TABS take one table PO one time abran y TERBINAFINE HCL 250 MG ORAL TABS 054659 TERBINAFINE HCL Inactive BUPROPION HCL ER (SR) 100 MG ORAL [id number] take one t ablet by mouth one time daily for one week then take 1 two times daily BUPROPION HCL ER (SR) 100 MG ORAL [id number] BUPROPION HCL Inacti ve TRAVEL SICKNESS 25 MG ORAL CHEW chew and swallow one t ablet every 6 hours as needed TRAVEL SICKNESS 25 MG ORAL CHEW 050415 MECLIZINE HCL Inactive SUMATRIPTAN SUCCINATE 100 MG ORAL TABS Take one PRN for migrane SUMATRIPTAN SUCCINATE 100 MG ORAL TABS 775081 SUMATRIPT AN SUCCINATE Inactive COMPRO 25 MG RECTAL SUPP insert or apply one supposit ory rectally as directed every 12 hours as needed for nausea COMP RO 25 MG RECTAL SUPP 281660 PROCHLORPERAZINE Inactive ONDANSETRON [address] one tablet on tongue and allow to dissolve every 6 hours as needed for vomitting ON DANSETRON 8 MG ORAL TBDP 040202 ONDANSETRON Inactive HYDROCODONE-ACETAMINOPHEN 5-325 MG TABS 0.5 to 1 tab b y mouth every 6 hours as needed HYDROCODONE-ACETAMINOPHEN 5-325 MG TABS 8 84681 HYDROCODONE-ACETAMINOPHEN Inactive CIPRO 500 MG TAB 1 tablet by mouth twice daily CIPRO 500 MG TAB 567028 CIPROFLOXACIN HCL Inactive FLUCONAZOLE 150 MG TABS take 1 tab po qday once 04/06 FLUCONAZOLE 150 MG TABS 008247 FLUCONAZOLE Inactive ZITHROMAX Z-KARTHIK 250 MG TABS 2 today, then 1 daily for 4 days 201 09/18/28 ZITHROMAX Z-KARTHIK 250 MG TABS 2805353 AZITHROMYCIN Inac tive PREDNISONE 20 MG TAB 2 tabs daily for 3 days, 1 t ab daily for 3 days, 1/2 tab daily for 2 days PREDNISONE 20 MG TAB 454518 PREDNISON E Inactive AZITHROMYCIN 250 MG TABS 2 po qd x 1 day, then 1 po qd x 4 days AZITHROMYCIN 250 MG TABS 9113486 AZITHROMYCIN Inactiv e PREDNISONE 20 MG TAB 2 tabs daily for 3 days, 1 t ab daily for 3 days, 1/2 tab daily for 2 days PREDNISONE 20 MG TAB 704033 PREDNISON E Inactive CEFDINIR 300 MG CAPS by mouth twice a day CEFDINIR 300 MG CAPS 845635 CEFDINIR Inactive TRIAMCINOLONE ACETONIDE 0.1 % OINT Apply to affected a reas TID for up to 2 weeks TRIAMCINOLONE ACETONIDE 0.1 % OINT 334241 6 TRIAMCINOLONE ACETONIDE Inactive PREDNISONE 20 MG TAB 2 tabs daily for 3 days, 1 t ab daily for 3 days, 1/2 tab daily for 2 days PREDNISONE 20 MG TAB 268728 PREDNISON E Inactive BACTRIM DS 800-160 MG TABS 1 po BID x 7 days 0 BACTRIM DS 800-160 MG TABS SULFAMETHOXAZOLE-TRIMETHOPRIM Inactive CIPRO 500 MG TAB 1 tablet by mouth twice daily CIPRO 500 MG TAB 260781 CIPROFLOXACIN HCL Inactive AZITHROMYCIN 250 MG TABS 2 po qd x 1 day, then 1 po qd x 4 days AZITHROMYCIN 250 MG TABS 4159292 AZITHROMYCIN Inactiv e Immunizations Vaccine Administration Date Value Standard Michael cription TB-PPD (tuberculin purified protein derivative), intra dermal administration Tubersol Vital Signs Date Name Value Unit Range Description blood pressure, diastolic - 8462-4 77 mm[Hg] [...] 71 /min H eart rate temperature E&M 98.8 [degF] Body temp erature weight E&M - 3141-9 131 [lb_av] Weigh t Measured blood pressure, diastolic - 8462-4 77 mm[Hg] BP mathew blood pressure, systolic - 8480-6 110 mm[Hg] BP sys pulse rate E&M - 8867-4 82 /min H eart rate temperature E&M 98.2 [degF] Body temp erature weight E&M - 3141-9 130 [lb_av] Weigh t Measured temperature E&M 98.4 [degF] Body temp erature weight E&M - 3141-9 125.6 [lb_av] Weigh t Measured blood pressure, diastolic - 8462-4 79 mm[Hg] BP mathew blood pressure, systolic - 8480-6 121 mm[Hg] BP sys pulse rate E&M - 8867-4 77 /min H eart rate temperature E&M 98.6 [degF] Body temp erature weight E&M - 3141-9 118 [lb_av] Weigh t Measured blood pressure, diastolic - 8462-4 82 mm[Hg] BP mathew blood pressure, systolic - 8480-6 117 mm[Hg] BP sys pulse rate E&M - 8867-4 84 /min H eart rate temperature E&M 97.3 [degF] Body temp erature weight E&M - 3141-9 120 [lb_av] Weigh t Measured blood pressure, diastolic - 8462-4 76 mm[Hg] BP mathew blood pressure, systolic - 8480-6 123 mm[Hg] BP sys height E&M - 8302-2 63.5 [in_us] Bdy h eight pulse rate E&M - 8867-4 73 /min H eart rate temperature E&M 98.4 [degF] Body temp erature weight E&M - 3141-9 119.13 [lb_av] Weigh t Measured blood pressure, diastolic - 8462-4 74 mm[Hg] BP mathew blood pressure, systolic - 8480-6 109 mm[Hg] BP sys pulse rate E&M - 8867-4 69 /min H eart rate temperature E&M 96.8 [degF] Body temp erature weight E&M - 3141-9 116 [lb_av] Weigh t Measured blood pressure, diastolic - 8462-4 77 mm[Hg] BP mathew blood pressure, systolic - 8480-6 115 mm[Hg] BP sys pulse rate E&M - 8867-4 76 /min H eart rate temperature E&M 98.8 [degF] Body temp erature weight E&M - 3141-9 115 [lb_av] Weigh t Measured Diagnostic Results Date Name Value Unit Range Description Lab Report: Comp. Metabolic Panel, Lipid Panel - Chemistry sodium, serum 139 mmol/L 778-862 5261/10/24 potassium, serum 4.1 mmol/L 3.5-5.2 chloride, serum 102 mmol/L 98-107 carbon dioxide, venous blood 30.9 mmol/L 21.0-32 .0 blood glucose 78 mg/dL 65-110 urea nitrogen, blood 11 mg/dL 7-18 creatinine, serum 0.70 mg/dL 0.60-1.30 alanine aminotransferase (SGPT), serum 12 U/L 12-78 aspartate aminotransferase (SGOT), serum 14 U/L 15-37 alkaline phosphatase, serum 64 U/L 50-136 calcium, serum 8.6 mg/dL 8.5-10.1 bilirubin, serum, total 0.80 mg/dL 0.00-1.00 cholesterol, serum 147 mg/dL 568-509 4741/10/24 triglyceride, serum, fasting 112 mg/dL 30-200 HDL cholesterol, serum 40 mg/dL 32-96 LDL cholesterol, serum 85 mg/dL 0-130 Lab Report: UADIP W/MICRO, AUTO - Chemis try protein, total urine random Negative mg/dL Negative RBC, urine, dipstick Negative Negative Lab Report: UADIP W/MICRO, AUTO - Urinal ysis urobilinogen, urine, semiquantitative (dipstick) 1.0 Normal leukocyte esterase, urine, by dipstick Negative Negative nitrite, urine, semiquantitative Negative Neg ative glucose, urine, semiquantitative Negative Neg ative ketones, urine, by test strip Negative Negati ve bilirubin, urine Negative Negative urine color Unable to read macroscopic due t o interfering substance Colorless;Lightyellow;Straw;Yellow appearance, urine red-orange clear Clear urine color Yellow Colorless;Lightyellow;St raw;Yellow appearance, urine Clear Clear specific gravity, urine 1.025 1.000-1.030 pH, urine, semiquantitative 7.0 5.0-8.5 Encounters Code Encounter Date Provider Facility CPT-03068 Level 3 Est. Patient 15:56:22 CDT Checo Conklin MD [facility] CPT-96576 Level 3 Est. Patient 15:29:07 CDT Checo Conklin MD [facility] CPT-96367 Level 3 Est. Patient 14:38:41 CDT Checo Conklin MD [facility] CPT-14276 Level 3 Est. Patient 15:22:03 [employer] Thomas reynolds DO [facility] CPT-08429 Level 3 Est. Patient 13:34:17 [employer] Checo Conklin MD [facility] CPT-56611 Level 3 Est. Patient 12:29:32 CDT Dangelo arroyo MD [facility] CPT-35189 Level 3 Est. Patient 16:53:02 CDT Checo Conklin MD [facility] CPT-36249 Level 3 Est. Patient 16:37:13 CDT Checo Conklin MD [facility] CPT-31109 Level 3 Est. Patient 16:16:59 CDT Paul Hamlin MD [facility] CPT-72877 Level 3 Est. Patient 14:20:13 CDT Dangelo arroyo MD [facility] CPT-06327 Level 4 Est. Patient 11:29:33 CDT Checo Conklin MD [facility] CPT-40130 Level 3 Est. Patient 17:08:31 CDT Checo Conklin MD [facility] CPT-84709 Level 3 Est. Patient 16:50:42 [employer] Checo Conklin MD [facility] CPT-02896 Level 4 Est. Patient 09:26:08 [employer] Checo Conklin MD [facility] CPT-65878 Level 3 Est. Patient 11:37:10 CDT Checo Conklin MD [facility] CPT-58535 Level 4 Est. Patient 14:07:38 CDT Checo Conklin MD [facility] CPT-16602 Level 3 Est. Patient 09:54:41 CDT Checo Conklin MD [facility] CPT-66112 Level 3 Est. Patient 11:10:54 CDT Paul Hamlin MD [facility] CPT-03889 Level 3 Est. Patient 14:16:56 [employer] Checo Conklin MD [facility] CPT-60961 Level 3 Est. Patient 11:04:11 [employer] Checo Conklin MD [facility] CPT-49895 Level 3 Est. Patient 17:09:26 CDT Dangelo arroyo MD [facility] CPT-66336 Level 3 Est. Patient 16:54:37 CDT Checo Conklin MD [facility] Procedures Code Procedure Name Date Entry Date Standard Desc ription CPT-OV Office Visit 11:31:28 CDT CPT-70764 Tubersol 09:39:29 CDT CPT-J2550 Phenergan 25 mg (Promethazine) 13:59:02 [employer] CPT-J1885 Toradol 60 mg (Ketorolac) 13:59:02 [employer] 2012
--- OUTSIDE RECORDS SUMMARY | 2019-09-29 01:26 | XMS REPORT | Clinical Summary ---
Author Author Admin, Bethany Gonzales Organization [facility] Address Unknown Phone Unavailable Allergies, [...] vulvovaginitis, unspecified Pharyngitis 462 Active Jimarine Medel PROFESSOR OF NURSING Acute pharyngitis Cough 786.2 Active Efren Medel [...] 1 tablet by mouth qod FLUCONA ZOLE 53648804040 Active Jillina Frazell PROFESSOR OF NURSING Active CLARITIN 10 MG TAB 1 tablet by mouth daily as needed for allergies LORATADINE 03758992292 Active Jillina Frazell PROFESSOR OF NURSING Active AZITHROMYCIN 250 MG TABS 2 po qd x 1 day, then 1 po qd x 4 days AZITHROMYCIN 99265915656 No Longer Active Jillina Frazell PROFESSOR OF NURSING Active FLAGYL 500 MG TAB 1 tablet by mouth bid METRONI DAZOLE 47815381629 No Longer Active Checo Conklin MD Active FOCALIN XR 10 MG ORAL [id number] 1 po q a.m. DEX METHYLPHENIDATE HCL 50935332363 Active Checo Conklin MD Active MAGNESIUM CITRATE 1.745 GM/30ML ORAL SOLN 150ml po BID PRN C onstipation MAGNESIUM CITRATE 72105125295 No Longer Active Checo Conklin MD Active BACTROBAN 2 % CREAM Apply to affected area BID for up to 10 days MUPIROCIN CALCIUM 41472464457 No Longer Active Checo Conklin MD Active HYDROCODONE-ACETAMINOPHEN 5-325 MG TABS 1 tab by mouth every 6 hours as needed HYDROCODONE-ACETAMINOPHEN 30317752384 No Longer Activ e Checo Conklin MD Active IBUPROFEN 800 MG TABS 1 tab every 8 hours with food 31/03/21 IBUPROFEN 39338139247 No Longer Active Checo Conklin MD Activ e DIFLUCAN 150 MG TAB 1 tablet by mouth if needed, hold until symptoms start FLUCONAZOLE 57515248478 No Longer Active Checo Ortiz MD Active BACTRIM DS 800-160 MG TAB 1 tab by mouth twice daily 2 TRIMETHOPRIM-SULFAMETHOXAZOLE 35969295381 No Longer Active Corry leong LPN Active MIRALAX PACK 1 po qd PRN Constipation POLYETHYL JOEL GLYCOL 3350 02255936460 Active Checo Conklin MD Active HYDROCODONE-ACETAMINOPHEN 5-325 MG TABS 0.5 to 1 tab b y mouth every 6 hours as needed HYDROCODONE-ACETAMINOPHEN 21384088518 No Longer Active Checo Conklin MD Active ONDANSETRON [address] one tablet on tongue and allow to dissolve every 6 hours as needed for vomitting ONDANSETRO N 38559010930 No Longer Active Checo Conklin MD Active COMPRO 25 MG RECTAL SUPP insert or apply one supposit ory rectally as directed every 12 hours as needed for nausea PROCHLORPERA ZINE 37994717508 No Longer Active Checo Conklin MD Active SUMATRIPTAN SUCCINATE 100 MG ORAL TABS Take one PRN for migrane SUMATRIPTAN SUCCINATE 01651996554 No Longer Active Checo Conklin MD Active TRAVEL SICKNESS 25 MG ORAL CHEW chew and swallow one t ablet every 6 hours as needed MECLIZINE HCL 89547341294 No Longer Active Joe Conklin MD Active BUPROPION HCL ER (SR) 100 MG ORAL [id number] take one t ablet by mouth one time daily for one week then take 1 two times daily BUPROPION HCL 91422548082 No Longer Active Checo Conklin MD Activ e TERBINAFINE HCL 250 MG ORAL TABS take one table PO one time abran y TERBINAFINE HCL 40234192350 No Longer Active Checo Conklin MD Active METOCLOPRAMIDE HCL 10 MG ORAL TABS take one PO tid PRN nausea 20 29/12/14 METOCLOPRAMIDE HCL 78416675312 No Longer Active Checo Conklin MD Active DICLOFENAC SODIUM 75 MG TBEC 1 tablet by mouth twice daily P RN Knee pain DICLOFENAC SODIUM 43944099317 No Longer Active Checo Conklin MD Active LAMISIL 250 MG TAB 1 po qd TERBINAFINE HCL 548 86869511 No Longer Active Checo Conklin MD Active REGLAN 10 MG TAB 1 po TID PRN Nausea METOCLOPRA MIDE HCL 57893613420 No Longer Active Checo Conklin MD Active CELEXA 20 MG TABS 1 tablet by mouth daily CITALOPRAM HYDROBROMIDE 99481685605 No Longer Active Checo Conklin MD Activ e AZITHROMYCIN 250 MG TABS 2 po qd x 1 day, then 1 po qd x 4 days AZITHROMYCIN 66466881008 No Longer Active Checo Conklin MD Active HYDROCODONE-ACETAMINOPHEN 5-325 MG TABS 1 po q 6hr PRN Pain 2013 HYDROCODONE-ACETAMINOPHEN 68522792651 No Longer Active Lenora Conklin MD Active PHENAZOPYRIDINE HCL 200 MG TABS take 1 tab po TID for bladder pa in PHENAZOPYRIDINE HCL 26737948097 No Longer Active Checo Joshua Active CIPRO 500 MG TAB 1 tablet by mouth twice daily CIPROFLOXACIN HCL 17692472618 No Longer Active Dangelo Rangel MD Active HYDROCODONE-ACETAMINOPHEN 5-325 MG TABS 1/2 to 1 po q 4 hour s prn cough HYDROCODONE-ACETAMINOPHEN 54977999924 No Longer Activ e Dangelo Rangel MD Active BACTRIM DS 800-160 MG TABS 1 po BID x 7 days 0 SULFAMETHOXAZOLE-TRIMETHOPRIM 11618046859 No Longer Active Checo Conklin MD Active PREDNISONE 20 MG TAB 2 tabs daily for 3 days, 1 t ab daily for 3 days, 1/2 tab daily for 2 days PREDNISONE 76202255415 No Longer Active Checo Conklin MD Active TRIAMCINOLONE ACETONIDE 0.1 % OINT Apply to affected a reas TID for up to 2 weeks TRIAMCINOLONE ACETONIDE 65620503124 No Longer A ctive Checo Conklin MD Active CEFDINIR 300 MG CAPS by mouth twice a day CEFDI JAZZY 60591744910 No Longer Active Dangelo Rangel MD Active BUPROPION HCL (SMOKING DETER) 150 MG [id number] 1 a day for 1 week then 1 twice a day BUPROPION HCL (SMOKING DETER) 68892264813 No Lo nger Active Checo Conklin MD Active SIMVASTATIN 20 MG TABS 1 po qd SIMVASTATIN 5217096556 5 Active Checo Conklin MD Active CHANTIX STARTING MONTH KARTHIK 0.5 MG X 11 & 1 MG X 42 TAB S 0.5mg daily for 3 days, then 0.5mg BID for 4 days, then 1mg BID VARENICLINE TARTRATE 92956124312 No Longer Active Checo Conklin MD Activ e XANAX 0.5 MG TABS 1 po BID PRN anxiety ALPRAZOLAM 31572492843 Active Checo Conklin MD Active CONCERTA 18 MG CR-TABS 1 po q a.m. METHYLPHENID ATE HCL 40354918659 No Longer Active Checo Conklin MD Active AMBIEN 5 MG TAB 1 po qHS PRN Insomnia ZOLPIDEM TARTRATE 85451089274 Active Checo Conklin MD Active TRAZODONE HCL 100 MG TAB 0.5 to 1 po qHS PRN Insomnia TRAZODONE HCL 44141099055 No Longer Active Checo Conklin MD Acti ve FIORICET 325-50-40 MG TAB 1 tablet by mouth four times daily as needed [id number] 76684185888 No Longer Active Checo Conklin MD Active PHENERGAN CREAM* 25mg applied to wrist q6hr PRN Nausea PHENERGAN CREAM* No Longer Active Checo Conklin MD A ctive FLONASE 50 MCG/ACT SUSP 1 spray each nostril am and hs FLUTICASONE PROPIONATE 82854147830 No Longer Active Checo Conklin MD Activ e ANTIPYRINE-BENZOCAINE 5.4-1.4 % SOLN 1-2 drops in affected ear BENZOCAINE-ANTIPYRINE 87609863364 No Longer Active Checo Conklin MD Active CEFDINIR 300 MG CAPS 1 po bid CEFDINIR 40935418 120 No Longer Active Checo Conklin MD Active PREDNISONE 20 MG TAB 2 tabs daily for 3 days, 1 t ab daily for 3 days, 1/2 tab daily for 2 days PREDNISONE 68763320171 No Longer Active Aracelis Conklin MD Active AZITHROMYCIN 250 MG TABS 2 po qd x 1 day, then 1 po qd x 4 days AZITHROMYCIN 09328726559 No Longer Active Checo Conklin MD Active PREDNISONE 20 MG TAB 2 tabs daily for 3 days, 1 t ab daily for 3 days, 1/2 tab daily for 2 days PREDNISONE 68187959116 No Longer Active Checo Conklin MD Active ZITHROMAX Z-KARTHIK 250 MG TABS 2 today, then 1 daily for 4 days 201 09/18/28 AZITHROMYCIN 11615022335 No Longer Active Paul Hamlin MD Active FOCALIN XR 10 MG [id number] 1 po q a.m. D EXMETHYLPHENIDATE HCL 23775261927 No Longer Active Paul Hamlin MD Activ e PERCOCET 10-325 MG TABS 1 tablet every 6 hours as needed for pain OXYCODONE-ACETAMINOPHEN 12947020055 No Longer Active Paul Hamlin MD Active LORTAB 5 5-500 MG TABS 1/2 to 1 tablet by mouth flaquito ry 4 hours as needed for pain HYDROCODONE-ACETAMINOPHEN 05508845574 No Longer Active Checo Conklin MD Active FOCALIN XR 15 MG [id number] 1 po q a.m. D EXMETHYLPHENIDATE HCL 59993682884 No Longer Active Checo Conklin MD Activ e ZOFRAN ODT 4 MG TBDP 1 po q6hr PRN Nausea ONDAN SETRON 99311319378 No Longer Active Checo Conklin MD Active PERCOCET 5-325 MG TABS 1 tablet by mouth every 6 hours as needed OXYCODONE-ACETAMINOPHEN 80539346044 No Longer Active Checo Conklin MD Active PYRIDIUM 200 MG TABS take 1 tab po TID prn urinary pain. 0 PHENAZOPYRIDINE HCL 98312404830 No Longer Active Checo Conklin MD Active FLUCONAZOLE 150 MG TABS take 1 tab po qday once 04/06 FLUCONAZOLE 65681396325 No Longer Active Dangelo Rangel MD Acti ve CIPRO 500 MG TAB 1 tablet by mouth twice daily CIPROFLOXACIN HCL 66219231332 No Longer Active Dangelo Rangel MD Active PYRIDIUM 200 MG TABS take 1 tab po TID prn urinary pain. 0 PYRIDIUM 200 MG TABS 9980693 PHENAZOPYRIDINE HCL Inactive PERCOCET 5-325 MG TABS 1 tablet by mouth every 6 hours as needed PERCOCET 5-325 MG TABS 7017580 OXYCODONE-ACETAMINOPHEN I nactive ZOFRAN ODT 4 MG TBDP 1 po q6hr PRN Nausea ZOFRAN ODT 4 MG TBDP 770509 ONDANSETRON Inactive FOCALIN XR 15 MG [id number] 1 po q a.m. F OCALIN XR 15 MG [id number] DEXMETHYLPHENIDATE HCL Inactive LORTAB 5 5-500 MG TABS 1/2 to 1 tablet by mouth flaquito ry 4 hours as needed for pain LORTAB 5 5-500 MG TABS HYDROCODONE-A CETAMINOPHEN Inactive PERCOCET 10-325 MG TABS 1 tablet every 6 hours as needed for pain PERCOCET 10-325 MG TABS 8118210 OXYCODONE-ACETAMINOPHEN Inactive FOCALIN XR 10 MG [id number] 1 po q a.m. F OCALIN XR 10 MG [id number] DEXMETHYLPHENIDATE HCL Inactive CEFDINIR 300 MG CAPS 1 po bid CEFDINIR 300 MG CAPS 20 0346 CEFDINIR Inactive ANTIPYRINE-BENZOCAINE 5.4-1.4 % SOLN 1-2 drops in affected ear ANTIPYRINE-BENZOCAINE 5.4-1.4 % SOLN 713702 BENZOCAINE-ANTIPYRINE I nactive FLONASE 50 MCG/ACT SUSP [...] PRN Insomnia TRAZODONE HCL 100 MG TAB 975083 TRAZODONE HCL Inactive CONCERTA 18 MG CR-TABS [...] s prn cough HYDROCODONE-ACETAMINOPHEN 5-325 MG TABS 923725 HYDROCODONE-ACETAMINOPHEN Inactive PHENAZOPYRIDINE HCL 200 MG TABS take 1 tab po TID for bladder pa in PHENAZOPYRIDINE HCL 200 MG TABS 9202942 PHENAZOPYRIDINE HCL Inactive HYDROCODONE-ACETAMINOPHEN 5-325 MG TABS 1 po q 6hr PRN Pain 2013 HYDROCODONE-ACETAMINOPHEN 5-325 MG TABS 388201 HYDROCODONE-ACETAMINOPHEN Inactive CELEXA 20 MG TABS 1 tablet by mouth daily CELEXA 20 MG TABS 456813 CITALOPRAM HYDROBROMIDE Inactive REGLAN 10 MG TAB 1 po TID PRN Nausea REGLAN 10 MG TAB 679834 METOCLOPRAMIDE HCL Inactive LAMISIL 250 MG TAB 1 po qd LAMISIL 250 MG TAB 704809 TERBINAFINE HCL Inactive DICLOFENAC SODIUM 75 MG TBEC 1 tablet by mouth twice daily P RN Knee pain DICLOFENAC SODIUM 75 MG TBEC 521971 DICLOFENAC S ODIUM Inactive METOCLOPRAMIDE HCL 10 MG ORAL TABS take one PO tid PRN nausea 20 29/12/14 METOCLOPRAMIDE HCL 10 MG ORAL TABS 776682 METOCLOPRAMID E HCL Inactive TERBINAFINE HCL 250 MG ORAL TABS take one table PO one time abran y TERBINAFINE HCL 250 MG ORAL TABS 772175 TERBINAFINE HCL Inactive BUPROPION HCL ER (SR) 100 MG ORAL [id number] take one t ablet by mouth one time daily for one week then take 1 two times daily BUPROPION HCL ER (SR) 100 MG ORAL [id number] BUPROPION HCL Inacti ve TRAVEL SICKNESS 25 MG ORAL CHEW chew and swallow one t ablet every 6 hours as needed TRAVEL SICKNESS 25 MG ORAL CHEW 418186 MECLIZINE HCL Inactive SUMATRIPTAN SUCCINATE 100 MG ORAL TABS Take one PRN for migrane SUMATRIPTAN SUCCINATE 100 MG ORAL TABS 360096 SUMATRIPT AN SUCCINATE Inactive COMPRO 25 MG RECTAL SUPP insert or apply one supposit ory rectally as directed every 12 hours as needed for nausea COMP RO 25 MG RECTAL SUPP 119868 PROCHLORPERAZINE Inactive ONDANSETRON [address] one tablet on tongue and allow to dissolve every 6 hours as needed for vomitting ON DANSETRON 8 MG ORAL TBDP 720921 ONDANSETRON Inactive HYDROCODONE-ACETAMINOPHEN 5-325 MG TABS 0.5 to 1 tab b y mouth every 6 hours as needed HYDROCODONE-ACETAMINOPHEN 5-325 MG TABS 8 02811 HYDROCODONE-ACETAMINOPHEN Inactive BACTRIM DS 800-160 MG TAB 1 tab by mouth twice daily 2 BACTRIM DS 800-160 MG TAB 345978 TRIMETHOPRIM-SULFAMETHOXAZOLE Inac tive DIFLUCAN 150 MG TAB 1 tablet by mouth if needed, hold until symptoms start DIFLUCAN 150 MG TAB 779578 FLUCONAZOLE Inactive IBUPROFEN 800 MG TABS 1 tab every 8 hours with food 31/03/21 IBUPROFEN 800 MG TABS 075335 IBUPROFEN Inactive HYDROCODONE-ACETAMINOPHEN 5-325 MG TABS 1 tab by mouth every 6 hours as needed HYDROCODONE-ACETAMINOPHEN 5-325 MG TABS 567357 HYDROCODONE-ACETAMINOPHEN Inactive BACTROBAN 2 % CREAM Apply to affected area BID for up to 10 days BACTROBAN 2 % CREAM 423116 MUPIROCIN CALCIUM Inactive MAGNESIUM CITRATE 1.745 GM/30ML ORAL SOLN 150ml po BID PRN C onstipation MAGNESIUM CITRATE 1.745 GM/30ML ORAL SOLN 255827 0 MAGNESIUM CITRATE Inactive CIPRO 500 MG TAB 1 tablet by mouth twice daily CIPRO 500 MG TAB 751934 CIPROFLOXACIN HCL Inactive FLUCONAZOLE 150 MG TABS take 1 tab po qday once 04/06 FLUCONAZOLE 150 MG TABS 609933 FLUCONAZOLE Inactive ZITHROMAX Z-KARTHIK 250 MG TABS 2 today, then 1 daily for 4 days 201 09/18/28 ZITHROMAX Z-KARTHIK 250 MG TABS 0629198 AZITHROMYCIN Inac tive PREDNISONE 20 MG TAB 2 tabs daily for 3 days, 1 t ab daily for 3 days, 1/2 tab daily for 2 days PREDNISONE 20 MG TAB 439866 PREDNISON E Inactive AZITHROMYCIN 250 MG TABS 2 po qd x 1 day, then 1 po qd x 4 days AZITHROMYCIN 250 MG TABS 7726409 AZITHROMYCIN Inactiv e PREDNISONE 20 MG TAB 2 tabs daily for 3 days, 1 t ab daily for 3 days, 1/2 tab daily for 2 days PREDNISONE 20 MG TAB 890132 PREDNISON E Inactive CEFDINIR 300 MG CAPS by mouth twice a day CEFDINIR 300 MG CAPS 219713 CEFDINIR Inactive TRIAMCINOLONE ACETONIDE 0.1 % OINT Apply to affected a reas TID for up to 2 weeks TRIAMCINOLONE ACETONIDE 0.1 % OINT 501074 6 TRIAMCINOLONE ACETONIDE Inactive PREDNISONE 20 MG TAB 2 tabs daily for 3 days, 1 t ab daily for 3 days, 1/2 tab daily for 2 days PREDNISONE 20 MG TAB 079734 PREDNISON E Inactive BACTRIM DS 800-160 MG TABS 1 po BID x 7 days 0 BACTRIM DS 800-160 MG TABS 214429 SULFAMETHOXAZOLE-TRIMETHOPRIM Inactive CIPRO 500 MG TAB 1 tablet by mouth twice daily CIPRO 500 MG TAB 802890 CIPROFLOXACIN HCL Inactive AZITHROMYCIN 250 MG TABS 2 po qd x 1 day, then 1 po qd x 4 days AZITHROMYCIN 250 MG TABS 7325255 AZITHROMYCIN Inactiv e FLAGYL 500 MG TAB 1 tablet by mouth bid FLAGYL 500 MG TAB 000238 METRONIDAZOLE Inactive AZITHROMYCIN 250 MG TABS 2 po qd x 1 day, then 1 po qd x 4 days AZITHROMYCIN 250 MG TABS 4585832 AZITHROMYCIN Inactiv e Immunizations Vaccine Administration Date [...] - 3141-9 131 [lb_av] Weigh t Measured Diagnostic Results Date [...] ... - Chemistry sodium, serum 141 mmol/L 064-319 5303/01/26 carbon dioxide, venous blood 30.0 mmol/L 21.0-32 .0 potassium, serum 4.0 mmol/L 3.5-5.2 chloride, serum 105 mmol/L 98-107 blood glucose 85 mg/dL 65-110 urea nitrogen, blood 9 mg/dL 7-18 creatinine, serum 0.66 mg/dL 0.55-1.30 alanine aminotransferase (SGPT), serum 31 U/L 12-78 aspartate aminotransferase (SGOT), serum 21 U/L 15-37 calcium, serum 8.2 mg/dL 8.5-10.1 bilirubin, serum, total 1.10 mg/dL 0.00-1.00 cholesterol, serum 178 mg/dL 292-035 3258/01/26 triglyceride, serum, fasting 149 mg/dL 30-200 HDL [...] 5.0-8.5 Encounters Code Encounter Date Provider Facility CPT-64759 Level 3 Est. Patient 11:28:51 [employer] Efren almendarez APRN [facility] CPT-60716 Level 4 Est. Patient 13:55:46 [employer] Checo Conklin MD [facility] CPT-03605 Level 4 Est. Patient 17:10:53 CDT Checo Conklin MD [facility] CPT-56890 Level 3 Est. Patient 15:56:22 CDT Checo Conklin MD [facility] CPT-44873 Level 3 Est. Patient 15:29:07 CDT Checo Conklin MD [facility] CPT-10920 Level 3 Est. Patient 14:38:41 CDT Checo Conklin MD [facility] CPT-48469 Level 3 Est. Patient 15:22:03 [employer] Thomas reynolds DO [facility] CPT-09875 Level 3 Est. Patient 13:34:17 [employer] Checo Conklin MD [facility] CPT-00563 Level 3 Est. Patient 12:29:32 CDT Dangelo arroyo MD [facility] CPT-33879 Level 3 Est. Patient 16:53:02 CDT Checo Conklin MD [facility] CPT-75721 Level 3 Est. Patient 16:37:13 CDT Checo Conklin MD [facility] CPT-38028 Level 3 Est. Patient 16:16:59 CDT Paul Hamlin MD [facility] CPT-42510 Level 3 Est. Patient 14:20:13 CDT Dangelo arroyo MD [facility] CPT-77174 Level 4 Est. Patient 11:29:33 CDT Checo Conklin MD [facility] CPT-16975 Level 3 Est. Patient 17:08:31 CDT Checo Conklin MD [facility] CPT-34747 Level 3 Est. Patient 16:50:42 [employer] Checo Conklin MD [facility] CPT-79871 Level 4 Est. Patient 09:26:08 [employer] Checo Conklin MD [facility]-46149 Level 3 Est. Patient 11:37:10 CDT Checo Conklin MD [facility] CPT-02161 Level 4 Est. Patient 14:07:38 CDT Checo Conklin MD [facility] CPT-61713 Level 3 Est. Patient 09:54:41 CDT Checo Conklin MD [facility] CPT-28992 Level 3 Est. Patient 11:10:54 CDT Paul Hamlin MD [facility] CPT-77553 Level 3 Est. Patient 14:16:56 [employer] Checo Conklin MD [facility] CPT-88325 Level 3 Est. Patient 11:04:11 [employer] Checo Conklin MD [facility] CPT-29079 Level 3 Est. Patient 17:09:26 CDT Dangelo arroyo MD [facility] CPT-17097 Level 3 Est. Patient 16:54:37 CDT Checo Conklin MD [facility] Procedures Code Procedure Name Date Entry Date Standard Desc ription CPT-OV Office Visit 11:31:28 CDT CPT-26883 Tubersol 09:39:29 CDT CPT-J2550 Phenergan 25 mg (Promethazine) 13:59:02 [employer] CPT-J1885 Toradol 60 mg (Ketorolac) 13:59:02 [employer] 2012
--- OUTSIDE RECORDS SUMMARY | 2019-09-29 01:27 | XMS REPORT | Clinical Summary ---
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 AMOXICILLIN 77830307192 Active Corry Méndez LPN Active PAROXETINE HCL 20 MG ORAL TABLET 1.5 po qd PAR OXETINE HCL 19830577599 Active Checo Conklin MD Active FLUTICASONE PROPIONATE 50 MCG/ACT NASAL SUSPENSION 2 s prays/nostril qd PRN Congestion/Allergies FLUTICASONE PROPIONATE 4773574125 9 No Longer Active Checo Conklin MD Active AMOXICILLIN 500 MG ORAL CAPSULE 2 po BID x 10 days 201 01/15/27 AMOXICILLIN 03182689728 No Longer Active Checo Conklin MD Activ e MIRALAX ORAL POWDER 8.5 to 17g po qd PRN Constipation POLYETHYLENE GLYCOL 3350 22887734843 Active Checo Conklin MD Active CLARITIN 10 MG ORAL TABLET 1 tablet by mouth daily as needed for allergies LORATADINE 34686411334 No Longer Active Checo Ortiz MD Active BACTRIM DS 800-160 MG ORAL TABLET 1 tab by mouth twice daily 201 12/19/26 TRIMETHOPRIM-SULFAMETHOXAZOLE 23698418379 No Longer Active Ragini Carrillo MD Active DIFLUCAN 150 MG ORAL TABLET 1 tablet by mouth qod 2015 FLUCONAZOLE 45681764445 No Longer Active Efren Medel ANALYTICAL CONSULTANT Act mike AZITHROMYCIN 250 MG ORAL TABLET 2 po qd x 1 day, then 1 po q d x 4 days AZITHROMYCIN 97384465481 No Longer Active Efren flores ANALYTICAL CONSULTANT Active FLAGYL 500 MG ORAL TABLET 1 tablet by mouth bid 04/13 METRONIDAZOLE 20742133586 No Longer Active Checo Conklin MD Acti ve FOCALIN XR 10 MG ORAL CAPSULE EXTENDED RELEASE 24 HOUR 1 po q a.m. DEXMETHYLPHENIDATE HCL 13383833882 Active Checo Conklin MD Active MAGNESIUM CITRATE 1.745 GM/30ML ORAL SOLUTION 150ml po BID P RN Constipation MAGNESIUM CITRATE 94938627211 No Longer Active Checo Conklin MD Active BACTROBAN 2 % EXTERNAL CREAM Apply to affected area BID for up to 10 days MUPIROCIN CALCIUM 57292492118 No Longer Active Checo Conklin MD Active HYDROCODONE-ACETAMINOPHEN 5-325 MG ORAL TABLET 1 tab b y mouth every 6 hours as needed HYDROCODONE-ACETAMINOPHEN 96600148863 No Longer Active Checo Conklin MD Active IBUPROFEN 800 MG ORAL TABLET 1 tab every 8 hours with food 03/20 IBUPROFEN 63192847412 No Longer Active Checo Conklin MD Active DIFLUCAN 150 MG ORAL TABLET 1 tablet by mouth if neede d, hold until symptoms start FLUCONAZOLE 87551492928 No Longer Active Checo Conklin MD Active BACTRIM DS 800-160 MG ORAL TABLET 1 tab by mouth twice daily 201 11/23/03 TRIMETHOPRIM-SULFAMETHOXAZOLE 98269678330 No Longer Active K bernice Méndez LPN Active HYDROCODONE-ACETAMINOPHEN 5-325 MG ORAL TABLET 0.5 to 1 tab by mouth every 6 hours as needed HYDROCODONE-ACETAMINOPHEN 76625640532 No Longer Active Checo Conklin MD Active ONDANSETRON 8 MG ORAL TABLET DISINTEGRATING place one tablet on tongue and allow to dissolve every 6 hours as needed for vomitting ONDANSETRON 94385540944 No Longer Active Checo Conklin MD Activ e COMPRO 25 MG RECTAL SUPPOSITORY insert or apply one garza ppository rectally as directed every 12 hours as needed for nausea PROCHLORPERAZINE 24431198284 No Longer Active Checo Conklin MD A ctive SUMATRIPTAN SUCCINATE 100 MG ORAL TABLET Take one PRN for migran e SUMATRIPTAN SUCCINATE 38599964689 No Longer Active Checo Conklin MD Active TRAVEL SICKNESS 25 MG ORAL TABLET CHEWABLE chew and sw allow one tablet every 6 hours as needed MECLIZINE HCL 47324107759 No Longer A ctive Checo Conklin MD Active BUPROPION HCL ER (SR) 100 MG ORAL TABLET EXTENDED RELE ASE 12 HOUR take one tablet by mouth one time daily for one week then take 1 two times daily BUPROPION HCL 84321688975 No Longer Active Checo gallagher MD Active TERBINAFINE HCL 250 MG ORAL TABLET take one table PO one time da moises TERBINAFINE HCL 47431483297 No Longer Active Checo oCnklin MD Active METOCLOPRAMIDE HCL 10 MG ORAL TABLET take one PO tid PRN nausea METOCLOPRAMIDE HCL 50246461343 No Longer Active Checo Conklin MD Active DICLOFENAC SODIUM 75 MG ORAL TABLET DELAYED RELEASE 1 tablet by mouth twice daily PRN Knee pain DICLOFENAC SODIUM 14025677724 No Longer Active Checo Conklin MD Active LAMISIL 250 MG ORAL TABLET 1 po qd TERBINAFI NE HCL 93873768819 No Longer Active Checo Conklin MD Active REGLAN 10 MG ORAL TABLET 1 po TID PRN Nausea 3 METOCLOPRAMIDE HCL 57924789891 No Longer Active Checo Conklin MD Active CELEXA 20 MG ORAL TABLET 1 tablet by mouth daily 09/26 CITALOPRAM HYDROBROMIDE 24893332781 No Longer Active Checo Conklin MD Active AZITHROMYCIN 250 MG ORAL TABLET 2 po qd x 1 day, then 1 po q d x 4 days AZITHROMYCIN 32946441188 No Longer Active Checo Ortiz MD Active HYDROCODONE-ACETAMINOPHEN 5-325 MG ORAL TABLET 1 po q 6hr PRN Pa in HYDROCODONE-ACETAMINOPHEN 38084425566 No Longer Active Lenora Conklin MD Active PHENAZOPYRIDINE HCL 200 MG ORAL TABLET take 1 tab po TID for bladder pain PHENAZOPYRIDINE HCL 73058671856 No Longer Active Joe Conklin MD Active CIPRO 500 MG ORAL TABLET 1 tablet by mouth twice daily CIPROFLOXACIN HCL 00424490605 No Longer Active Dangelo Rangel MD Active HYDROCODONE-ACETAMINOPHEN 5-325 MG ORAL TABLET 1/2 to 1 po q 4 hours prn cough HYDROCODONE-ACETAMINOPHEN 86741569419 No Longer Activ candy Rangel MD Active BACTRIM DS 800-160 MG ORAL TABLET 1 po BID x 7 days 29/04/10 SULFAMETHOXAZOLE-TRIMETHOPRIM 00916126959 No Longer Active Checo Conklin MD Active PREDNISONE 20 MG ORAL TABLET 2 tabs daily for 3 days, 1 tab daily for 3 days, 1/2 tab daily for 2 days PREDNISONE 26068168097 No Longer Active Checo Conklin MD Active TRIAMCINOLONE ACETONIDE 0.1 % EXTERNAL OINTMENT Apply to affected areas TID for up to 2 weeks TRIAMCINOLONE ACETONIDE 15513613186 No Longer Active Checo Conklin MD Active CEFDINIR 300 MG ORAL CAPSULE by mouth twice a day 2013 CEFDINIR 60652957991 No Longer Active Dangelo Rangel MD Acti ve BUPROPION HCL ER (SMOKING DET) 150 MG ORAL TABLET EXTE NDED RELEASE 12 HOUR 1 a day for 1 week then 1 twice a day BUPROPION HCL (SMOKING DETER) 97774140553 No Longer Active Checo Conklin MD Active SIMVASTATIN 20 MG ORAL TABLET 1 po qd SIMVASTAT IN 99655477621 Active Checo Conklin MD Active CHANTIX STARTING MONTH KARTHIK 0.5 MG X 11 & 1 MG X 42 ORA L TABLET 0.5mg daily for 3 days, then 0.5mg BID for 4 days, then 1mg BID VARENICLINE TARTRATE 43003483470 No Longer Active Checo Conklin MD Activ e XANAX 0.5 MG ORAL TABLET 1 po BID PRN anxiety A LPRAZOLAM 04131860486 Active Checo Conklin MD Active CONCERTA 18 MG ORAL TABLET EXTENDED RELEASE 1 po q a.m. METHYLPHENIDATE HCL 41602211079 No Longer Active Checo Conklin MD Active AMBIEN 5 MG ORAL TABLET 1 po qHS PRN Insomnia Z OLPIDEM TARTRATE 93164162207 Active Checo Conklin MD Active TRAZODONE HCL 100 MG ORAL TABLET 0.5 to 1 po qHS PRN Insomnia 20 30/07/08 TRAZODONE HCL 45269083451 No Longer Active Checo Conklin MD Active FIORICET 325-50-40 MG TAB 1 tablet by mouth four times daily as needed [id number] 23425728393 No Longer Active Checo Conklin MD Active PHENERGAN CREAM* 25mg applied to wrist q6hr PRN Nausea PHENERGAN CREAM* No Longer Active Checo Conklin MD A ctive FLONASE 50 MCG/ACT NASAL SUSPENSION 1 spray each nostril am and hs FLUTICASONE PROPIONATE 74626987990 No Longer Active Checo Conklin MD Active ANTIPYRINE-BENZOCAINE 5.4-1.4 % OTIC SOLUTION 1-2 drops in affec yohannes ear BENZOCAINE-ANTIPYRINE 48209475298 No Longer Active Checo Conklin MD Active CEFDINIR 300 MG ORAL CAPSULE 1 po bid CEFDINIR 83542816411 No Longer Active Checo Conklin MD Active PREDNISONE 20 MG ORAL TABLET 2 tabs daily for 3 days, 1 tab daily for 3 days, 1/2 tab daily for 2 days PREDNISONE 08454811727 No Longer Active Checo Conklin MD Active AZITHROMYCIN 250 MG ORAL TABLET 2 po qd x 1 day, then 1 po q d x 4 days AZITHROMYCIN 54470022230 No Longer Active Checo Ortiz MD Active PREDNISONE 20 MG ORAL TABLET 2 tabs daily for 3 days, 1 tab daily for 3 days, 1/2 tab daily for 2 days PREDNISONE 89649720605 No Longer Active Checo Conklin MD Active ZITHROMAX Z-KARTHIK 250 MG ORAL TABLET 2 today, then 1 daily for 4 d ays AZITHROMYCIN 54269188804 No Longer Active Paul Hamlin MD Active FOCALIN XR 10 MG ORAL CAPSULE EXTENDED RELEASE 24 HOUR 1 po q a. m. DEXMETHYLPHENIDATE HCL 71191647403 No Longer Active Paul Hamlin MD Active PERCOCET 10-325 MG ORAL TABLET 1 tablet every 6 hours as needed for pain OXYCODONE-ACETAMINOPHEN 74565592325 No Longer Active Paul Hamlin MD Active LORTAB 5-500 MG ORAL TABLET 1/2 to 1 tablet by mouth e very 4 hours as needed for pain HYDROCODONE-ACETAMINOPHEN 34044612920 No Longer Active Checo Conklin MD Active FOCALIN XR 15 MG ORAL CAPSULE EXTENDED RELEASE 24 HOUR 1 po q a. m. DEXMETHYLPHENIDATE HCL 19635709778 No Longer Active Checo Conklin MD Active ZOFRAN ODT 4 MG ORAL TABLET DISINTEGRATING 1 po q6hr PRN Nausea ONDANSETRON 65194572060 No Longer Active Checo Conklin MD Active PERCOCET 5-325 MG ORAL TABLET 1 tablet by mouth every 6 hour s as needed OXYCODONE-ACETAMINOPHEN 76455085243 No Longer Active Checo Conklin MD Active PYRIDIUM 200 MG ORAL TABLET take 1 tab po TID prn urinary pain. PHENAZOPYRIDINE HCL 36347586851 No Longer Active Checo Joshua Active FLUCONAZOLE 150 MG ORAL TABLET take 1 tab po qday once FLUCONAZOLE 79070288522 No Longer Active Dangelo Rangel MD Acti ve CIPRO 500 MG ORAL TABLET 1 tablet by mouth twice daily CIPROFLOXACIN HCL 07746209655 No Longer Active Dangelo Rangel MD Active PYRIDIUM 200 MG ORAL TABLET take 1 tab po TID prn urinary pain. PYRIDIUM 200 MG ORAL TABLET 4584249 PHENAZOPYRIDINE HCL Inactive PERCOCET 5-325 MG ORAL TABLET 1 tablet by mouth every 6 hour s as needed PERCOCET 5-325 MG ORAL TABLET 6321426 OXYCODONE-ACETAMINOPHEN Inactive ZOFRAN ODT 4 MG ORAL TABLET DISINTEGRATING 1 po q6hr PRN Nausea ZOFRAN ODT 4 MG ORAL TABLET DISINTEGRATING 548910 ONDAN SETRON Inactive FOCALIN XR 15 MG ORAL CAPSULE EXTENDED RELEASE 24 HOUR 1 po q a. m. FOCALIN XR 15 MG ORAL CAPSULE EXTENDED RELEASE 24 HOUR DEXMETHYLPHENIDATE HCL Inactive LORTAB 5-500 MG ORAL TABLET 1/2 to 1 tablet by mouth e very 4 hours as needed for pain LORTAB 5-500 MG ORAL TABLET 501281 HYDROCODONE-ACETAMINOPHEN Inactive PERCOCET 10-325 MG ORAL TABLET 1 tablet every 6 hours as needed for pain PERCOCET 10-325 MG ORAL TABLET 9244751 OXYCODONE-ACETAMI NOPHEN Inactive FOCALIN XR 10 MG ORAL CAPSULE EXTENDED RELEASE 24 HOUR 1 po q a. m. FOCALIN XR 10 MG ORAL CAPSULE EXTENDED RELEASE 24 HOUR DEXMETHYLPHENIDATE HCL Inactive CEFDINIR 300 MG ORAL CAPSULE 1 po bid CEFDINI R 300 MG ORAL CAPSULE 500998 CEFDINIR Inactive ANTIPYRINE-BENZOCAINE 5.4-1.4 % OTIC SOLUTION 1-2 drops in affec yohannes ear ANTIPYRINE-BENZOCAINE 5.4-1.4 % OTIC SOLUTION 420688 BENZOCAINE-ANTIPYRINE Inactive FLONASE 50 MCG/ACT NASAL SUSPENSION 1 spray each nostril am and hs FLONASE 50 MCG/ACT NASAL SUSPENSION 2942843 FLUTICASONE PROPIONATE I nactive PHENERGAN CREAM* 25mg applied to wrist q6hr PRN Nausea PHENERGAN CREAM* Inactive FIORICET 325-50-40 MG TAB 1 tablet by mouth four times daily as needed FIORICET 325-50-40 MG TAB ACETAMINOPHEN-C AFF-BUTALBITAL Inactive TRAZODONE HCL 100 MG ORAL TABLET 0.5 to 1 po qHS PRN Insomnia 20 30/07/08 TRAZODONE HCL 100 MG ORAL TABLET 476410 TRAZODONE HCL Inactive CONCERTA 18 MG ORAL [...] cough HYDROCODONE-ACETAMINOPHEN 5-325 MG ORAL TABLET 8 04049 HYDROCODONE-ACETAMINOPHEN Inactive PHENAZOPYRIDINE HCL 200 MG ORAL TABLET take 1 tab po TID for bladder pain PHENAZOPYRIDINE HCL 200 MG ORAL TABLET 1797853 PHENAZOPYRIDINE HCL Inactive HYDROCODONE-ACETAMINOPHEN 5-325 MG ORAL TABLET 1 po q 6hr PRN Pa in HYDROCODONE-ACETAMINOPHEN 5-325 MG ORAL TABLET 399782 HYDROCODONE-ACETAMINOPHEN Inactive CELEXA 20 MG ORAL TABLET 1 tablet by mouth daily 09/26 CELEXA 20 MG ORAL TABLET 017523 CITALOPRAM HYDROBROMIDE Inactive REGLAN 10 MG ORAL TABLET 1 po TID PRN Nausea 3 REGLAN 10 MG ORAL TABLET 084009 METOCLOPRAMIDE HCL Inactive LAMISIL 250 MG ORAL TABLET 1 po qd L AMISIL 250 MG ORAL TABLET 432390 TERBINAFINE HCL Inactive DICLOFENAC SODIUM 75 MG ORAL TABLET DELAYED RELEASE 1 tablet by mouth twice daily PRN Knee pain DICLOFENAC SODIUM 75 MG ORAL TABLET DELAYED RELEASE 691169 DICLOFENAC SODIUM Inactive METOCLOPRAMIDE HCL 10 MG ORAL TABLET take one PO tid PRN nausea METOCLOPRAMIDE HCL 10 MG ORAL TABLET 671429 METOCLOPRAM ZACH HCL Inactive TERBINAFINE HCL 250 MG ORAL TABLET take one table PO one time da moises TERBINAFINE HCL 250 MG ORAL TABLET 311661 TERBINAFINE H CL Inactive BUPROPION HCL ER [...] SICKNESS 25 M G ORAL TABLET CHEWABLE 717560 MECLIZINE HCL Inactive SUMATRIPTAN SUCCINATE 100 MG ORAL TABLET Take one PRN for migran e SUMATRIPTAN SUCCINATE 100 MG ORAL TABLET 889245 SUMATRIPTAN SUCCINATE Inactive COMPRO 25 MG RECTAL SUPPOSITORY insert or apply one garza ppository rectally as directed every 12 hours as needed for nausea COMPRO 25 MG RECTAL SUPPOSITORY 177382 PROCHLORPERAZINE Inactive ONDANSETRON 8 MG ORAL TABLET DISINTEGRATING place one tablet on tongue and allow to dissolve every 6 hours as needed for vomitting ONDANSETRON 8 MG ORAL TABLET DISINTEGRATING 840387 ONDANSETRON Inactive HYDROCODONE-ACETAMINOPHEN 5-325 MG ORAL TABLET 0.5 to 1 tab by mouth every 6 hours as needed HYDROCODONE-ACETAMIN OPHEN 5-325 MG ORAL TABLET 178117 HYDROCODONE-ACETAMINOPHEN Inactive BACTRIM DS 800-160 MG ORAL TABLET 1 tab by mouth twice daily 201 11/23/03 BACTRIM DS 800-160 MG ORAL TABLET 837478 TRIMETHOPRIM-SULFAMETHOXAZOLE Inactive DIFLUCAN 150 MG ORAL TABLET 1 tablet by mouth if neede d, hold until symptoms start DIFLUCAN 150 MG ORAL TABLET 487625 FLUCONAZ OLE Inactive IBUPROFEN 800 MG ORAL TABLET 1 tab every 8 hours with food 03/20 IBUPROFEN 800 MG ORAL TABLET 397143 IBUPROFEN Krupa ctive HYDROCODONE-ACETAMINOPHEN 5-325 MG ORAL TABLET 1 tab b y mouth every 6 hours as needed HYDROCODONE-ACETAMINOPHEN 5-325 MG ORAL TABLET 444762 HYDROCODONE-ACETAMINOPHEN Inactive BACTROBAN 2 % EXTERNAL CREAM Apply to affected area BID for up to 10 days BACTROBAN 2 % EXTERNAL CREAM 089193 MUPIROCIN CA LCIUM Inactive MAGNESIUM CITRATE 1.745 GM/30ML ORAL SOLUTION 150ml po BID P RN Constipation MAGNESIUM CITRATE 1.745 GM/30ML ORAL SOLUTION 10 34393 MAGNESIUM CITRATE Inactive DIFLUCAN 150 MG ORAL TABLET 1 tablet by mouth qod 2015 DIFLUCAN 150 MG ORAL TABLET 812316 FLUCONAZOLE Inactive BACTRIM DS 800-160 MG ORAL TABLET 1 tab by mouth twice daily 201 12/19/26 BACTRIM DS 800-160 MG ORAL TABLET 510652 TRIMETHOPRIM-SULFAMETHOXAZOLE Inactive CLARITIN 10 MG ORAL TABLET 1 tablet by mouth daily as needed for allergies CLARITIN 10 MG ORAL TABLET 030684 LORATADINE I nactive FLUTICASONE PROPIONATE 50 MCG/ACT NASAL SUSPENSION 2 s prays/nostril qd PRN Congestion/Allergies FLUTICASONE PROPION ATE 50 MCG/ACT NASAL SUSPENSION 3872576 FLUTICASONE PROPIONATE Inactive CIPRO 500 MG ORAL TABLET 1 tablet by mouth twice daily CIPRO 500 MG ORAL TABLET 419994 CIPROFLOXACIN HCL Inactive FLUCONAZOLE 150 MG ORAL TABLET take 1 tab po qday once FLUCONAZOLE 150 MG ORAL TABLET 459980 FLUCONAZOLE Inactive ZITHROMAX Z-KARTHIK 250 MG ORAL TABLET 2 today, then 1 daily for 4 d ays ZITHROMAX Z-KARTHIK 250 MG ORAL TABLET 645438 AZITHROMYCIN Inactive PREDNISONE 20 MG ORAL TABLET 2 tabs daily for 3 days, 1 tab daily for 3 days, 1/2 tab daily for 2 days PREDNISONE 20 MG ORAL T ABLET 186427 PREDNISONE Inactive AZITHROMYCIN 250 MG ORAL TABLET 2 po qd x 1 day, then 1 po q d x 4 days AZITHROMYCIN 250 MG ORAL TABLET 886876 AZITHROMY SPARKLE Inactive PREDNISONE 20 MG ORAL TABLET 2 tabs daily for 3 days, 1 tab daily for 3 days, 1/2 tab daily for 2 days PREDNISONE 20 MG ORAL TABLET 838091 PREDNISONE Inactive CEFDINIR 300 MG ORAL CAPSULE by mouth twice a day 2013 CEFDINIR 300 MG ORAL CAPSULE 097188 CEFDINIR Inactive TRIAMCINOLONE ACETONIDE 0.1 % EXTERNAL OINTMENT Apply to affected areas TID for up to 2 weeks TRIAMCINOLONE ACETON ZACH 0.1 % EXTERNAL OINTMENT 2694855 TRIAMCINOLONE ACETONIDE Inactive PREDNISONE 20 MG ORAL TABLET 2 tabs daily for 3 days, 1 tab daily for 3 days, 1/2 tab daily for 2 days PREDNISONE 20 MG ORAL T ABLET 371942 PREDNISONE Inactive BACTRIM DS 800-160 MG ORAL TABLET 1 po BID x 7 days 29/04/10 BACTRIM DS 800-160 MG ORAL TABLET 493907 SULFAMETHOXAZOLE-TRIMETHOP RIM Inactive CIPRO 500 MG ORAL TABLET 1 tablet by mouth twice daily CIPRO 500 MG ORAL TABLET 955341 CIPROFLOXACIN HCL Inactive AZITHROMYCIN 250 MG ORAL TABLET 2 po qd x 1 day, then 1 po q d x 4 days AZITHROMYCIN 250 MG ORAL TABLET 739361 AZITHROMY SPARKLE Inactive FLAGYL 500 MG ORAL TABLET 1 tablet by mouth bid 04/13 FLAGYL 500 MG ORAL TABLET 888241 METRONIDAZOLE Inactive AZITHROMYCIN 250 MG ORAL TABLET 2 po qd x 1 day, then 1 po q d x 4 days AZITHROMYCIN 250 MG ORAL TABLET 588353 AZITHROMY SPARKLE Inactive AMOXICILLIN 500 MG ORAL CAPSULE 2 po BID x 10 days 201 01/15/27 AMOXICILLIN 500 MG ORAL CAPSULE 507422 AMOXICILLIN Inactive Immunizations Vaccine Administration Date Value [...] PANEL - Chemistry cholesterol, serum 192 mg/dL 874-324 4575/02/20 HDL cholesterol, serum 31 mg/dL > OR [...] 11 .0-15.0 platelet count 218 THOUSAND/UL 10*3/mm3 049-623 5310/02/20 mean platelet volume 9.7 fL 7.5-12.5 Lab Report: Comp. Metabolic Panel, Eryth rocyte Sed Rate, UADIP W/MICRO, ... - Chemistry protein, total urine random Negative mg/dL Negative sodium, serum 139 mmol/L 754-008 9197/11/28 carbon dioxide, venous blood 26.0 mmol/L 21.0-32 .0 potassium, serum 3.9 mmol/L 3.5-5.2 chloride, serum 104 mmol/L 98-107 blood glucose 76 mg/dL 65-110 urea nitrogen, blood 13 mg/dL 7-18 creatinine, serum 0.62 mg/dL 0.60-1.30 alanine aminotransferase (SGPT), serum 37 U/L 12-78 aspartate aminotransferase (SGOT), serum 25 U/L 15-37 calcium, serum 8.3 mg/dL 8.5-10.1 bilirubin, serum, total 0.60 mg/dL 0.00-1.00 RBC, urine, dipstick 1+ Negative Lab Report: Comp. Metabolic Panel, Eryth rocyte Sed Rate, UADIP W/MICRO, ... - Urinalysis urobilinogen, urine, semiquantitative (dipstick) 0.2 E .U./dL Normal leukocyte esterase, urine, by dipstick Negative Negative nitrite, urine, semiquantitative Negative Neg ative urine color Yellow Colorless;Lightyellow;St raw;Yellow appearance, urine Slightly Cloudy Clear specific gravity, urine >=1.030 1.000-1.030 pH, urine, semiquantitative 6.0 5.0-8.5 glucose, urine, semiquantitative Negative Neg ative ketones, urine, by test strip Negative Negati ve bilirubin, urine Negative Negative Encounters Code Encounter Date Provider Facility CPT-52267 Level 3 Est. Patient 11:24:55 MANAGER CANCER Efren almendarez [facility] CPT-68862 Level 3 Est. Patient 13:05:44 CDT Paul Hamlin MD [facility] CPT-38641 Level 3 Est. Patient 11:29:55 CDT Checo Conklin MD [facility] CPT-10954 Level 4 Est. Patient 11:08:12 MANAGER CANCER Checo Conklin MD [facility] CPT-86282 Level 4 Est. Patient 16:06:48 MANAGER CANCER Checo Conklin MD [facility] CPT-34305 Level 3 Est. Patient 09:11:49 CDT Efren almendarez [facility] CPT-26951 Level 2 Est. Patient 19:53:27 CDT Tanner hill MD [facility] CPT-16735 Level 3 Est. Patient 09:15:34 CDT Efren almendarez [facility] CPT-11507 Level 3 Est. Patient 11:28:51 MANAGER CANCER Efren almendarez [facility] CPT-25711 Level 4 Est. Patient 13:55:46 MANAGER CANCER Checo Conklin MD [facility] CPT-06777 Level 4 Est. Patient 17:10:53 CDT Checo Conklin MD [facility] CPT-10112 Level 3 Est. Patient 15:56:22 CDT Checo Conklin MD [facility] CPT-76631 Level 3 Est. Patient 15:29:07 CDT Checo Conklin MD [facility] CPT-44157 Level 3 Est. Patient 14:38:41 CDT Checo Conklin MD [facility] CPT-48703 Level 3 Est. Patient 15:22:03 MANAGER CANCER Thomas reynolds DO [facility] CPT-93337 Level 3 Est. Patient 13:34:17 MANAGER CANCER Checo Conklin MD [facility] CPT-11076 Level 3 Est. Patient 12:29:32 CDT Dangelo arroyo MD [facility] CPT-62114 Level 3 Est. Patient 16:53:02 CDT Checo Conklin MD [facility] CPT-08594 Level 3 Est. Patient 16:37:13 CDT Checo Conklin MD [facility] CPT-56891 Level 3 Est. Patient 16:16:59 CDT Paul Hamlin MD [facility] CPT-34892 Level 3 Est. Patient 14:20:13 CDT Dangelo arroyo MD [facility] CPT-98859 Level 4 Est. Patient 11:29:33 CDT Checo Conklin MD [facility] CPT-47487 Level 3 Est. Patient 17:08:31 CDT Checo Conklin MD [facility] CPT-91461 Level 3 Est. Patient 16:50:42 MANAGER CANCER Checo Conklin MD [facility] CPT-08580 Level 4 Est. Patient 09:26:08 MANAGER CANCER Checo Conklin MD [facility] CPT-03743 Level 3 Est. Patient 11:37:10 CDT Checo Conklin MD [facility] CPT-94036 Level 4 Est. Patient 14:07:38 CDT Checo Conklin MD [facility] CPT-63197 Level 3 Est. Patient 09:54:41 CDT Checo Conklin MD [facility] CPT-68765 Level 3 Est. Patient 11:10:54 CDT Paul Hamlin MD [facility] CPT-76963 Level 3 Est. Patient 14:16:56 MANAGER CANCER Checo Conklin MD [facility] CPT-41933 Level 3 Est. Patient 11:04:11 MANAGER CANCER Checo Conklin MD [facility] CPT-74805 Level 3 Est. Patient 17:09:26 CDT Dangelo arroyo MD [facility] CPT-45218 Level 3 Est. Patient 16:54:37 CDT Checo Conklin MD [facility] Procedures Code Procedure Name Date Entry Date Standard Desc ription CPT-97695 Abd compl w upright - XRAY USE ONLY 1 1:36:54 MANAGER CANCER CPT-08804 UA w micro - LAB USE ONLY 17:06:46 CDT 2015 CPT-96263 BHCG Qual - LAB USE ONLY 17:06:46 CDT 05/06 CPT-95438 CMP - LAB USE ONLY 17:06:46 CDT CPT-18391 CBC with Diff - LAB USE ONLY 17:06:45 CDT 2 CPT-97913 Venipuncture Draw Fee 17:06:45 CDT CPT-LR Lesion Removal 19:53:27 CDT CPT-OV Office Visit 11:31:28 CDT CPT-84459 Tubersol 09:39:29 CDT CPT-J2550 Phenergan 25 mg (Promethazine) 13:59:02 MANAGER CANCER CPT-J1885 Toradol 60 mg (Ketorolac) 13:59:02 MANAGER CANCER 2012
--- OUTSIDE RECORDS SUMMARY | 2019-09-29 01:27 | XMS REPORT | Clinical Summary ---
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 Acute pharyngitis Cough 786.2 Active Efren Medel [...] 1 tablet by mouth qod FLUCONA ZOLE 92669847693 Active Jillina Frazell PLASTICS PRODUCTION MACHINE OPERATOR Active CLARITIN 10 MG TAB 1 tablet by mouth daily as needed for allergies LORATADINE 21419724252 Active Jillina Frazell PLASTICS PRODUCTION MACHINE OPERATOR Active AZITHROMYCIN 250 MG TABS 2 po qd x 1 day, then 1 po qd x 4 days AZITHROMYCIN 97574683036 No Longer Active Jillina Frazell PLASTICS PRODUCTION MACHINE OPERATOR Active FLAGYL 500 MG TAB 1 tablet by mouth bid METRONI DAZOLE 63791188234 No Longer Active Checo Conklin MD Active FOCALIN XR 10 MG ORAL [id number] 1 po q a.m. DEX METHYLPHENIDATE HCL 66239413379 Active Checo Conklin MD Active MAGNESIUM CITRATE 1.745 GM/30ML ORAL SOLN 150ml po BID PRN C onstipation MAGNESIUM CITRATE 91820266064 No Longer Active Checo Conklin MD Active BACTROBAN 2 % CREAM Apply to affected area BID for up to 10 days MUPIROCIN CALCIUM 96007808875 No Longer Active hCeco Conklin MD Active HYDROCODONE-ACETAMINOPHEN 5-325 MG TABS 1 tab by mouth every 6 hours as needed HYDROCODONE-ACETAMINOPHEN 83567474447 No Longer Activ e Checo Conklin MD Active IBUPROFEN 800 MG TABS 1 tab every 8 hours with food 31/03/21 IBUPROFEN 85783699896 No Longer Active Checo Conklin MD Activ e DIFLUCAN 150 MG TAB 1 tablet by mouth if needed, hold until symptoms start FLUCONAZOLE 48755585236 No Longer Active Checo Ortiz MD Active BACTRIM DS 800-160 MG TAB 1 tab by mouth twice daily 2 TRIMETHOPRIM-SULFAMETHOXAZOLE 40363263326 No Longer Active Corry leong LPN Active MIRALAX PACK 1 po qd PRN Constipation POLYETHYL JOEL GLYCOL 3350 73516661558 Active Checo Conklin MD Active HYDROCODONE-ACETAMINOPHEN 5-325 MG TABS 0.5 to 1 tab b y mouth every 6 hours as needed HYDROCODONE-ACETAMINOPHEN 21862413039 No Longer Active Checo Conklin MD Active ONDANSETRON [address] one tablet on tongue and allow to dissolve every 6 hours as needed for vomitting ONDANSETRO N 95292401382 No Longer Active Checo Conklin MD Active COMPRO 25 MG RECTAL SUPP insert or apply one supposit ory rectally as directed every 12 hours as needed for nausea PROCHLORPERA ZINE 24240375038 No Longer Active Checo Conklin MD Active SUMATRIPTAN SUCCINATE 100 MG ORAL TABS Take one PRN for migrane SUMATRIPTAN SUCCINATE 67902565289 No Longer Active Checo Conklin MD Active TRAVEL SICKNESS 25 MG ORAL CHEW chew and swallow one t ablet every 6 hours as needed MECLIZINE HCL 44542969708 No Longer Active Joe Conklin MD Active BUPROPION HCL ER (SR) 100 MG ORAL [id number] take one t ablet by mouth one time daily for one week then take 1 two times daily BUPROPION HCL 07068708044 No Longer Active Checo Conklin MD Activ e TERBINAFINE HCL 250 MG ORAL TABS take one table PO one time abran y TERBINAFINE HCL 82260038698 No Longer Active Checo Conklin MD Active METOCLOPRAMIDE HCL 10 MG ORAL TABS take one PO tid PRN nausea 20 29/12/14 METOCLOPRAMIDE HCL 86076221348 No Longer Active Checo Conklin MD Active DICLOFENAC SODIUM 75 MG TBEC 1 tablet by mouth twice daily P RN Knee pain DICLOFENAC SODIUM 94816717171 No Longer Active Checo Conklin MD Active LAMISIL 250 MG TAB 1 po qd TERBINAFINE HCL 548 34954166 No Longer Active Checo Conklin MD Active REGLAN 10 MG TAB 1 po TID PRN Nausea METOCLOPRA MIDE HCL 06451633230 No Longer Active Checo Conklin MD Active CELEXA 20 MG TABS 1 tablet by mouth daily CITALOPRAM HYDROBROMIDE 32473105458 No Longer Active Checo Conklin MD Activ e AZITHROMYCIN 250 MG TABS 2 po qd x 1 day, then 1 po qd x 4 days AZITHROMYCIN 59341300341 No Longer Active Checo Conklin MD Active HYDROCODONE-ACETAMINOPHEN 5-325 MG TABS 1 po q 6hr PRN Pain 2013 HYDROCODONE-ACETAMINOPHEN 59314076309 No Longer Active Lenora Conklin MD Active PHENAZOPYRIDINE HCL 200 MG TABS take 1 tab po TID for bladder pa in PHENAZOPYRIDINE HCL 81282352327 No Longer Active Checo Joshua Active CIPRO 500 MG TAB 1 tablet by mouth twice daily CIPROFLOXACIN HCL 66321768581 No Longer Active Dangelo Rangel MD Active HYDROCODONE-ACETAMINOPHEN 5-325 MG TABS 1/2 to 1 po q 4 hour s prn cough HYDROCODONE-ACETAMINOPHEN 06452958974 No Longer Activ e Dangelo Rangel MD Active BACTRIM DS 800-160 MG TABS 1 po BID x 7 days 0 SULFAMETHOXAZOLE-TRIMETHOPRIM 42283150893 No Longer Active Checo Conklin MD Active PREDNISONE 20 MG TAB 2 tabs daily for 3 days, 1 t ab daily for 3 days, 1/2 tab daily for 2 days PREDNISONE 38150547587 No Longer Active Checo Conklin MD Active TRIAMCINOLONE ACETONIDE 0.1 % OINT Apply to affected a reas TID for up to 2 weeks TRIAMCINOLONE ACETONIDE 56596120688 No Longer A ctive Checo Conklin MD Active CEFDINIR 300 MG CAPS by mouth twice a day CEFDI JAZZY 14476425411 No Longer Active Dangelo Rangel MD Active BUPROPION HCL (SMOKING DETER) 150 MG [id number] 1 a day for 1 week then 1 twice a day BUPROPION HCL (SMOKING DETER) 32544806035 No Lo nger Active Checo Conklin MD Active SIMVASTATIN 20 MG TABS 1 po qd SIMVASTATIN 2842240961 5 Active Checo Conklin MD Active CHANTIX STARTING MONTH KARTHIK 0.5 MG X 11 & 1 MG X 42 TAB S 0.5mg daily for 3 days, then 0.5mg BID for 4 days, then 1mg BID VARENICLINE TARTRATE 81915812797 No Longer Active Checo Conklin MD Activ e XANAX 0.5 MG TABS 1 po BID PRN anxiety ALPRAZOLAM 47301168640 Active Checo Conklin MD Active CONCERTA 18 MG CR-TABS 1 po q a.m. METHYLPHENID ATE HCL 00640827531 No Longer Active Checo Conklin MD Active AMBIEN 5 MG TAB 1 po qHS PRN Insomnia ZOLPIDEM TARTRATE 36612825736 Active Checo Conklin MD Active TRAZODONE HCL 100 MG TAB 0.5 to 1 po qHS PRN Insomnia TRAZODONE HCL 10721585970 No Longer Active Checo Conklin MD Acti ve FIORICET 325-50-40 MG TAB 1 tablet by mouth four times daily as needed [id number] 24416939048 No Longer Active Checo Conklin MD Active PHENERGAN CREAM* 25mg applied to wrist q6hr PRN Nausea PHENERGAN CREAM* No Longer Active Checo Conklin MD A ctive FLONASE 50 MCG/ACT SUSP 1 spray each nostril am and hs FLUTICASONE PROPIONATE 91893801257 No Longer Active Checo Conklin MD Activ e ANTIPYRINE-BENZOCAINE 5.4-1.4 % SOLN 1-2 drops in affected ear BENZOCAINE-ANTIPYRINE 54713062833 No Longer Active Checo Conklin MD Active CEFDINIR 300 MG CAPS 1 po bid CEFDINIR 68493778 120 No Longer Active Checo Conklin MD Active PREDNISONE 20 MG TAB 2 tabs daily for 3 days, 1 t ab daily for 3 days, 1/2 tab daily for 2 days PREDNISONE 73245896529 No Longer Active Aracelis Conklin MD Active AZITHROMYCIN 250 MG TABS 2 po qd x 1 day, then 1 po qd x 4 days AZITHROMYCIN 95877421587 No Longer Active Checo Conklin MD Active PREDNISONE 20 MG TAB 2 tabs daily for 3 days, 1 t ab daily for 3 days, 1/2 tab daily for 2 days PREDNISONE 59018439288 No Longer Active Checo Conklin MD Active ZITHROMAX Z-KARTHIK 250 MG TABS 2 today, then 1 daily for 4 days 201 09/18/28 AZITHROMYCIN 03878826439 No Longer Active Paul Hamlin MD Active FOCALIN XR 10 MG [id number] 1 po q a.m. D EXMETHYLPHENIDATE HCL 75207986983 No Longer Active Paul Hamlin MD Activ e PERCOCET 10-325 MG TABS 1 tablet every 6 hours as needed for pain OXYCODONE-ACETAMINOPHEN 02094981872 No Longer Active Paul Hamlin MD Active LORTAB 5 5-500 MG TABS 1/2 to 1 tablet by mouth flaquito ry 4 hours as needed for pain HYDROCODONE-ACETAMINOPHEN 55529773869 No Longer Active Checo Conklin MD Active FOCALIN XR 15 MG [id number] 1 po q a.m. D EXMETHYLPHENIDATE HCL 90241380806 No Longer Active Checo Conklin MD Activ e ZOFRAN ODT 4 MG TBDP 1 po q6hr PRN Nausea ONDAN SETRON 05730918280 No Longer Active Checo Conklin MD Active PERCOCET 5-325 MG TABS 1 tablet by mouth every 6 hours as needed OXYCODONE-ACETAMINOPHEN 16746619122 No Longer Active Checo Conklin MD Active PYRIDIUM 200 MG TABS take 1 tab po TID prn urinary pain. 0 PHENAZOPYRIDINE HCL 31438789073 No Longer Active Checo Conklin MD Active FLUCONAZOLE 150 MG TABS take 1 tab po qday once 04/06 FLUCONAZOLE 98605516907 No Longer Active Dangelo Rangel MD Acti ve CIPRO 500 MG TAB 1 tablet by mouth twice daily CIPROFLOXACIN HCL 35717787533 No Longer Active Dangelo Rangel MD Active PYRIDIUM 200 MG TABS take 1 tab po TID prn urinary pain. 0 PYRIDIUM 200 MG TABS 9442179 PHENAZOPYRIDINE HCL Inactive PERCOCET 5-325 MG TABS 1 tablet by mouth every 6 hours as needed PERCOCET 5-325 MG TABS 8612117 OXYCODONE-ACETAMINOPHEN I nactive ZOFRAN ODT 4 MG TBDP 1 po q6hr PRN Nausea ZOFRAN ODT 4 MG TBDP 119832 ONDANSETRON Inactive FOCALIN XR 15 MG [id number] 1 po q a.m. F OCALIN XR 15 MG [id number] DEXMETHYLPHENIDATE HCL Inactive LORTAB 5 5-500 MG TABS 1/2 to 1 tablet by mouth flaquito ry 4 hours as needed for pain LORTAB 5 5-500 MG TABS HYDROCODONE-A CETAMINOPHEN Inactive PERCOCET 10-325 MG TABS 1 tablet every 6 hours as needed for pain PERCOCET 10-325 MG TABS 4828195 OXYCODONE-ACETAMINOPHEN Inactive FOCALIN XR 10 MG [id number] 1 po q a.m. F OCALIN XR 10 MG [id number] DEXMETHYLPHENIDATE HCL Inactive CEFDINIR 300 MG CAPS 1 po bid CEFDINIR 300 MG CAPS 20 0346 CEFDINIR Inactive ANTIPYRINE-BENZOCAINE 5.4-1.4 % SOLN 1-2 drops in affected ear ANTIPYRINE-BENZOCAINE 5.4-1.4 % SOLN 239617 BENZOCAINE-ANTIPYRINE I nactive FLONASE 50 MCG/ACT SUSP [...] PRN Insomnia TRAZODONE HCL 100 MG TAB 537649 TRAZODONE HCL Inactive CONCERTA 18 MG CR-TABS [...] s prn cough HYDROCODONE-ACETAMINOPHEN 5-325 MG TABS 280939 HYDROCODONE-ACETAMINOPHEN Inactive PHENAZOPYRIDINE HCL 200 MG TABS take 1 tab po TID for bladder pa in PHENAZOPYRIDINE HCL 200 MG TABS 3061456 PHENAZOPYRIDINE HCL Inactive HYDROCODONE-ACETAMINOPHEN 5-325 MG TABS 1 po q 6hr PRN Pain 2013 HYDROCODONE-ACETAMINOPHEN 5-325 MG TABS 561270 HYDROCODONE-ACETAMINOPHEN Inactive CELEXA 20 MG TABS 1 tablet by mouth daily CELEXA 20 MG TABS 555492 CITALOPRAM HYDROBROMIDE Inactive REGLAN 10 MG TAB 1 po TID PRN Nausea REGLAN 10 MG TAB 452810 METOCLOPRAMIDE HCL Inactive LAMISIL 250 MG TAB 1 po qd LAMISIL 250 MG TAB 909108 TERBINAFINE HCL Inactive DICLOFENAC SODIUM 75 MG TBEC 1 tablet by mouth twice daily P RN Knee pain DICLOFENAC SODIUM 75 MG TBEC 867681 DICLOFENAC S ODIUM Inactive METOCLOPRAMIDE HCL 10 MG ORAL TABS take one PO tid PRN nausea 20 29/12/14 METOCLOPRAMIDE HCL 10 MG ORAL TABS 698064 METOCLOPRAMID E HCL Inactive TERBINAFINE HCL 250 MG ORAL TABS take one table PO one time abran y TERBINAFINE HCL 250 MG ORAL TABS 990184 TERBINAFINE HCL Inactive BUPROPION HCL ER (SR) 100 MG ORAL [id number] take one t ablet by mouth one time daily for one week then take 1 two times daily BUPROPION HCL ER (SR) 100 MG ORAL [id number] BUPROPION HCL Inacti ve TRAVEL SICKNESS 25 MG ORAL CHEW chew and swallow one t ablet every 6 hours as needed TRAVEL SICKNESS 25 MG ORAL CHEW 117332 MECLIZINE HCL Inactive SUMATRIPTAN SUCCINATE 100 MG ORAL TABS Take one PRN for migrane SUMATRIPTAN SUCCINATE 100 MG ORAL TABS 654999 SUMATRIPT AN SUCCINATE Inactive COMPRO 25 MG RECTAL SUPP insert or apply one supposit ory rectally as directed every 12 hours as needed for nausea COMP RO 25 MG RECTAL SUPP 423788 PROCHLORPERAZINE Inactive ONDANSETRON [address] one tablet on tongue and allow to dissolve every 6 hours as needed for vomitting ON DANSETRON 8 MG ORAL TBDP 335164 ONDANSETRON Inactive HYDROCODONE-ACETAMINOPHEN 5-325 MG TABS 0.5 to 1 tab b y mouth every 6 hours as needed HYDROCODONE-ACETAMINOPHEN 5-325 MG TABS 8 23880 HYDROCODONE-ACETAMINOPHEN Inactive BACTRIM DS 800-160 MG TAB 1 tab by mouth twice daily 2 BACTRIM DS 800-160 MG TAB 636205 TRIMETHOPRIM-SULFAMETHOXAZOLE Inac tive DIFLUCAN 150 MG TAB 1 tablet by mouth if needed, hold until symptoms start DIFLUCAN 150 MG TAB 231132 FLUCONAZOLE Inactive IBUPROFEN 800 MG TABS 1 tab every 8 hours with food 31/03/21 IBUPROFEN 800 MG TABS 122098 IBUPROFEN Inactive HYDROCODONE-ACETAMINOPHEN 5-325 MG TABS 1 tab by mouth every 6 hours as needed HYDROCODONE-ACETAMINOPHEN 5-325 MG TABS 793511 HYDROCODONE-ACETAMINOPHEN Inactive BACTROBAN 2 % CREAM Apply to affected area BID for up to 10 days BACTROBAN 2 % CREAM 488855 MUPIROCIN CALCIUM Inactive MAGNESIUM CITRATE 1.745 GM/30ML ORAL SOLN 150ml po BID PRN C onstipation MAGNESIUM CITRATE 1.745 GM/30ML ORAL SOLN 837178 0 MAGNESIUM CITRATE Inactive CIPRO 500 MG TAB 1 tablet by mouth twice daily CIPRO 500 MG TAB 993163 CIPROFLOXACIN HCL Inactive FLUCONAZOLE 150 MG TABS take 1 tab po qday once 04/06 FLUCONAZOLE 150 MG TABS 000688 FLUCONAZOLE Inactive ZITHROMAX Z-KARTHIK 250 MG TABS 2 today, then 1 daily for 4 days 201 09/18/28 ZITHROMAX Z-KARTHIK 250 MG TABS 0692909 AZITHROMYCIN Inac tive PREDNISONE 20 MG TAB 2 tabs daily for 3 days, 1 t ab daily for 3 days, 1/2 tab daily for 2 days PREDNISONE 20 MG TAB 155045 PREDNISON E Inactive AZITHROMYCIN 250 MG TABS 2 po qd x 1 day, then 1 po qd x 4 days AZITHROMYCIN 250 MG TABS 4272176 AZITHROMYCIN Inactiv e PREDNISONE 20 MG TAB 2 tabs daily for 3 days, 1 t ab daily for 3 days, 1/2 tab daily for 2 days PREDNISONE 20 MG TAB 903709 PREDNISON E Inactive CEFDINIR 300 MG CAPS by mouth twice a day CEFDINIR 300 MG CAPS 842424 CEFDINIR Inactive TRIAMCINOLONE ACETONIDE 0.1 % OINT Apply to affected a reas TID for up to 2 weeks TRIAMCINOLONE ACETONIDE 0.1 % OINT 070935 6 TRIAMCINOLONE ACETONIDE Inactive PREDNISONE 20 MG TAB 2 tabs daily for 3 days, 1 t ab daily for 3 days, 1/2 tab daily for 2 days PREDNISONE 20 MG TAB 115471 PREDNISON E Inactive BACTRIM DS 800-160 MG TABS 1 po BID x 7 days 0 BACTRIM DS 800-160 MG TABS 323278 SULFAMETHOXAZOLE-TRIMETHOPRIM Inactive CIPRO 500 MG TAB 1 tablet by mouth twice daily CIPRO 500 MG TAB 333351 CIPROFLOXACIN HCL Inactive AZITHROMYCIN 250 MG TABS 2 po qd x 1 day, then 1 po qd x 4 days AZITHROMYCIN 250 MG TABS 4615152 AZITHROMYCIN Inactiv e FLAGYL 500 MG TAB 1 tablet by mouth bid FLAGYL 500 MG TAB 054145 METRONIDAZOLE Inactive AZITHROMYCIN 250 MG TABS 2 po qd x 1 day, then 1 po qd x 4 days AZITHROMYCIN 250 MG TABS 3241222 AZITHROMYCIN Inactiv e Immunizations Vaccine Administration Date [...] ... - Chemistry sodium, serum 141 mmol/L 843-695 0503/01/26 carbon dioxide, venous blood 30.0 mmol/L 21.0-32 .0 potassium, serum 4.0 mmol/L 3.5-5.2 chloride, serum 105 mmol/L 98-107 blood glucose 85 mg/dL 65-110 urea nitrogen, blood 9 mg/dL 7-18 creatinine, serum 0.66 mg/dL 0.55-1.30 alanine aminotransferase (SGPT), serum 31 U/L 12-78 aspartate aminotransferase (SGOT), serum 21 U/L 15-37 calcium, serum 8.2 mg/dL 8.5-10.1 bilirubin, serum, total 1.10 mg/dL 0.00-1.00 cholesterol, serum 178 mg/dL 924-348 2338/01/26 triglyceride, serum, fasting 149 mg/dL 30-200 HDL [...] 5.0-8.5 Encounters Code Encounter Date Provider Facility CPT-58846 Level 3 Est. Patient 11:28:51 STRUCTURAL DRAFTER Efren almendarez APRN [facility] CPT-34559 Level 4 Est. Patient 13:55:46 STRUCTURAL DRAFTER Checo Conklin MD [facility] CPT-84305 Level 4 Est. Patient 17:10:53 CDT Checo Conklin MD [facility] CPT-16199 Level 3 Est. Patient 15:56:22 CDT Checo Conklin MD [facility] CPT-60533 Level 3 Est. Patient 15:29:07 CDT Checo Conklin MD [facility] CPT-75391 Level 3 Est. Patient 14:38:41 CDT Checo Conklin MD [facility] CPT-75692 Level 3 Est. Patient 15:22:03 STRUCTURAL DRAFTER Thomas reynolds DO [facility] CPT-85559 Level 3 Est. Patient 13:34:17 STRUCTURAL DRAFTER Checo Conklin MD [facility] CPT-05520 Level 3 Est. Patient 12:29:32 CDT Dangelo arroyo MD [facility] CPT-13961 Level 3 Est. Patient 16:53:02 CDT Checo Conklin MD [facility] CPT-98295 Level 3 Est. Patient 16:37:13 CDT Checo Conklin MD [facility] CPT-80316 Level 3 Est. Patient 16:16:59 CDT Paul Hamlin MD [facility] CPT-73763 Level 3 Est. Patient 14:20:13 CDT Dangelo arroyo MD [facility] CPT-10767 Level 4 Est. Patient 11:29:33 CDT Checo Conklin MD [facility] CPT-26671 Level 3 Est. Patient 17:08:31 CDT Checo Conklin MD [facility] CPT-20553 Level 3 Est. Patient 16:50:42 STRUCTURAL DRAFTER Checo Conklin MD [facility] CPT-61441 Level 4 Est. Patient 09:26:08 STRUCTURAL DRAFTER Checo Conklin MD [facility] CPT-11668 Level 3 Est. Patient 11:37:10 CDT Checo Conklin MD [facility] CPT-38750 Level 4 Est. Patient 14:07:38 CDT Checo Conklin MD [facility] CPT-72619 Level 3 Est. Patient 09:54:41 CDT Checo Conklin MD [facility] CPT-37661 Level 3 Est. Patient 11:10:54 CDT Paul Hamlin MD [facility] CPT-39046 Level 3 Est. Patient 14:16:56 STRUCTURAL DRAFTER Checo Conklin MD [facility] CPT-19269 Level 3 Est. Patient 11:04:11 STRUCTURAL DRAFTER Checo Conklin MD [facility] CPT-04123 Level 3 Est. Patient 17:09:26 CDT Dangelo arroyo MD [facility] CPT-62970 Level 3 Est. Patient 16:54:37 CDT Checo Conklin MD [facility] Procedures Code Procedure Name Date Entry Date Standard Desc ription CPT-OV Office Visit 11:31:28 CDT CPT-31541 Tubersol 09:39:29 CDT CPT-J2550 Phenergan 25 mg (Promethazine) 13:59:02 STRUCTURAL DRAFTER CPT-J1885 Toradol 60 mg (Ketorolac) 13:59:02 STRUCTURAL DRAFTER 2012
--- OUTSIDE RECORDS SUMMARY | 2019-09-29 01:27 | XMS REPORT | Clinical Summary ---
Author Author Admin, Bethany Gonzales Organization [facility] Address Unknown Phone Unavailable Allergies, Adverse Reactions, [...] and vulvovaginitis, unspecified Pharyngitis 462 Active Jillina Frajoel M[employer]I P[employer]CH OPERATOR Acute pharyngitis Cough 786.2 Active Jillina Lizy M[employer]I PUNCH OPERATOR Cough Pedal edema 782.3 Active Jillina Lizy MULTI PUNCH OPERATOR Edema BREAST CANCER ICD-V16.3 Inactive Checo Joshua FH [...] Aracelis Conklin MD Hypoglycemia, unspecified ICD-251.2 Inactive hCeco Conklin MD Insomnia ICD-780.52 Inactive Checo Joshua [...] TAB 1 tab by mouth twice daily TRIMETHOPRIM-SULFAMETHOXAZOLE 25466324499 Active Jillina Frazell MULTI PUNCH OPERATOR Active DIFLUCAN 150 MG TAB 1 tablet by mouth qod FLUCO NAZOLE 44915434969 No Longer Active Jillina Frazell MULTI PUNCH OPERATOR Active CLARITIN 10 MG TAB 1 tablet by mouth daily as needed for allergies LORATADINE 84611668036 Active Efren Medel M[employer]I PUNCH OPERATOR Active AZITHROMYCIN 250 MG TABS 2 po qd x 1 day, then 1 po qd x 4 days AZITHROMYCIN 80950535603 No Longer Active Efren Medel M[employer]I PUNCH OPERATOR Active FLAGYL 500 MG TAB 1 tablet by mouth bid METRONI DAZOLE 36598145451 No Longer Active Checo Conklin MD Active FOCALIN XR 10 MG ORAL [id number] 1 po q a.m. DEX METHYLPHENIDATE HCL 89474812821 Active Checo Conklin MD Active MAGNESIUM CITRATE 1.745 GM/30ML ORAL SOLN 150ml po BID PRN C onstipation MAGNESIUM CITRATE 38296814808 No Longer Active Checo Conklin MD Active BACTROBAN 2 % CREAM Apply to affected area BID for up to 10 days MUPIROCIN CALCIUM 82049041273 No Longer Active Checo Conklin MD Active HYDROCODONE-ACETAMINOPHEN 5-325 MG TABS 1 tab by mouth every 6 hours as needed HYDROCODONE-ACETAMINOPHEN 19021511499 No Longer Activ e Checo Conklin MD Active IBUPROFEN 800 MG TABS 1 tab every 8 hours with food 20 31/03/21 IBUPROFEN 87961863505 No Longer Active Checo Conklin MD Activ e DIFLUCAN 150 MG TAB 1 tablet by mouth if needed, hold until symptoms start FLUCONAZOLE 47049889946 No Longer Active Checo Ortiz MD Active BACTRIM DS 800-160 MG TAB 1 tab by mouth twice daily 2 TRIMETHOPRIM-SULFAMETHOXAZOLE 87436721536 No Longer Active Corry leong LPN Active MIRALAX PACK 1 po qd PRN Constipation POLYETHYL JOEL GLYCOL 3350 91449834537 Active Checo Conklin MD Active HYDROCODONE-ACETAMINOPHEN 5-325 MG TABS 0.5 to 1 tab b y mouth every 6 hours as needed HYDROCODONE-ACETAMINOPHEN 41345695628 No Longer Active Checo Conklin MD Active ONDANSETRON [address] one tablet on tongue and allow to dissolve every 6 hours as needed for vomitting ONDANSETRO N 80309864306 No Longer Active Checo Conklin MD Active COMPRO 25 MG RECTAL SUPP insert or apply one supposit ory rectally as directed every 12 hours as needed for nausea PROCHLORPERA ZINE 89248497666 No Longer Active Checo Conklin MD Active SUMATRIPTAN SUCCINATE 100 MG ORAL TABS Take one PRN for migrane SUMATRIPTAN SUCCINATE 74338777795 No Longer Active Checo Conklin MD Active TRAVEL SICKNESS 25 MG ORAL CHEW chew and swallow one t ablet every 6 hours as needed MECLIZINE HCL 93951467335 No Longer Active Joe Conklin MD Active BUPROPION HCL ER (SR) 100 MG ORAL [id number] take one t ablet by mouth one time daily for one week then take 1 two times daily BUPROPION HCL 25573615216 No Longer Active Checo Conklin MD Activ e TERBINAFINE HCL 250 MG ORAL TABS take one table PO one time abran y TERBINAFINE HCL 89055335901 No Longer Active Checo Conklin MD Active METOCLOPRAMIDE HCL 10 MG ORAL TABS take one PO tid PRN nausea 20 29/12/14 METOCLOPRAMIDE HCL 41676872228 No Longer Active Checo Conklin MD Active DICLOFENAC SODIUM 75 MG TBEC 1 tablet by mouth twice daily P RN Knee pain DICLOFENAC SODIUM 86378554751 No Longer Active Checo Conklin MD Active LAMISIL 250 MG TAB 1 po qd TERBINAFINE HCL 548 21026908 No Longer Active Checo Conklin MD Active REGLAN 10 MG TAB 1 po TID PRN Nausea METOCLOPRA MIDE HCL 06394044532 No Longer Active Checo Conklin MD Active CELEXA 20 MG TABS 1 tablet by mouth daily CITALOPRAM HYDROBROMIDE 27161458607 No Longer Active Checo Conklin MD Activ e AZITHROMYCIN 250 MG TABS 2 po qd x 1 day, then 1 po qd x 4 days AZITHROMYCIN 67487013180 No Longer Active Checo Conklin MD Active HYDROCODONE-ACETAMINOPHEN 5-325 MG TABS 1 po q 6hr PRN Pain 2013 HYDROCODONE-ACETAMINOPHEN 51356407123 No Longer Active Lenora Conklin MD Active PHENAZOPYRIDINE HCL 200 MG TABS take 1 tab po TID for bladder pa in PHENAZOPYRIDINE HCL 57770280580 No Longer Active Checo Joshua Active CIPRO 500 MG TAB 1 tablet by mouth twice daily CIPROFLOXACIN HCL 37057988355 No Longer Active Dangelo Rangel MD Active HYDROCODONE-ACETAMINOPHEN 5-325 MG TABS 1/2 to 1 po q 4 hour s prn cough HYDROCODONE-ACETAMINOPHEN 92248205559 No Longer Activ e Dangelo Rangel MD Active BACTRIM DS 800-160 MG TABS 1 po BID x 7 days 0 SULFAMETHOXAZOLE-TRIMETHOPRIM 57568456476 No Longer Active Checo Conklin MD Active PREDNISONE 20 MG TAB 2 tabs daily for 3 days, 1 t ab daily for 3 days, 1/2 tab daily for 2 days PREDNISONE 53340127990 No Longer Active Checo Conklin MD Active TRIAMCINOLONE ACETONIDE 0.1 % OINT Apply to affected a reas TID for up to 2 weeks TRIAMCINOLONE ACETONIDE 75819241320 No Longer A ctive Checo Conklin MD Active CEFDINIR 300 MG CAPS by mouth twice a day CEFDI JAZZY 24401596746 No Longer Active Dangelo Rangel MD Active BUPROPION HCL (SMOKING DETER) 150 MG [id number] 1 a day for 1 week then 1 twice a day BUPROPION HCL (SMOKING DETER) 36106889508 No Lo nger Active Checo Conklin MD Active SIMVASTATIN 20 MG TABS 1 po qd SIMVASTATIN 9700352975 5 Active Checo Conklin MD Active CHANTIX STARTING MONTH KARTHIK 0.5 MG X 11 & 1 MG X 42 TAB S 0.5mg daily for 3 days, then 0.5mg BID for 4 days, then 1mg BID VARENICLINE TARTRATE 70372801773 No Longer Active Checo Conklin MD Activ e XANAX 0.5 MG TABS 1 po BID PRN anxiety ALPRAZOLAM 68669456192 Active Checo Conklin MD Active CONCERTA 18 MG CR-TABS 1 po q a.m. METHYLPHENID ATE HCL 57025859818 No Longer Active Checo Conklin MD Active AMBIEN 5 MG TAB 1 po qHS PRN Insomnia ZOLPIDEM TARTRATE 60076168479 Active Checo Conklin MD Active TRAZODONE HCL 100 MG TAB 0.5 to 1 po qHS PRN Insomnia TRAZODONE HCL 76234885825 No Longer Active Checo Conklin MD Acti ve FIORICET 325-50-40 MG TAB 1 tablet by mouth four times daily as needed [id number] 51239598469 No Longer Active Checo Conklin MD Active PHENERGAN CREAM* 25mg applied to wrist q6hr PRN Nausea PHENERGAN CREAM* No Longer Active Checo Conklin MD A ctive FLONASE 50 MCG/ACT SUSP 1 spray each nostril am and hs FLUTICASONE PROPIONATE 45921977839 No Longer Active Checo Conklin MD Activ e ANTIPYRINE-BENZOCAINE 5.4-1.4 % SOLN 1-2 drops in affected ear BENZOCAINE-ANTIPYRINE 79083530806 No Longer Active Checo Conklin MD Active CEFDINIR 300 MG CAPS 1 po bid CEFDINIR 27251987 120 No Longer Active Checo Conklin MD Active PREDNISONE 20 MG TAB 2 tabs daily for 3 days, 1 t ab daily for 3 days, 1/2 tab daily for 2 days PREDNISONE 36171286833 No Longer Active Aracelis Conklin MD Active AZITHROMYCIN 250 MG TABS 2 po qd x 1 day, then 1 po qd x 4 days AZITHROMYCIN 09295442953 No Longer Active Checo Conklin MD Active PREDNISONE 20 MG TAB 2 tabs daily for 3 days, 1 t ab daily for 3 days, 1/2 tab daily for 2 days PREDNISONE 49837205588 No Longer Active Checo Conklin MD Active ZITHROMAX Z-KARTHIK 250 MG TABS 2 today, then 1 daily for 4 days 201 09/18/28 AZITHROMYCIN 47938557749 No Longer Active Paul Hamlin MD Active FOCALIN XR 10 MG [id number] 1 po q a.m. D EXMETHYLPHENIDATE HCL 61189657863 No Longer Active Paul Hamlin MD Activ e PERCOCET 10-325 MG TABS 1 tablet every 6 hours as needed for pain OXYCODONE-ACETAMINOPHEN 18763135277 No Longer Active Paul Hamlin MD Active LORTAB 5 5-500 MG TABS 1/2 to 1 tablet by mouth flaquito ry 4 hours as needed for pain HYDROCODONE-ACETAMINOPHEN 49425975287 No Longer Active Checo Conklin MD Active FOCALIN XR 15 MG [id number] 1 po q a.m. D EXMETHYLPHENIDATE HCL 29930925710 No Longer Active Checo Conklin MD Activ e ZOFRAN ODT 4 MG TBDP 1 po q6hr PRN Nausea ONDAN SETRON 48594681826 No Longer Active Checo Conklin MD Active PERCOCET 5-325 MG TABS 1 tablet by mouth every 6 hours as needed OXYCODONE-ACETAMINOPHEN 99574120693 No Longer Active Checo Conklin MD Active PYRIDIUM 200 MG TABS take 1 tab po TID prn urinary pain. 0 PHENAZOPYRIDINE HCL 61861734256 No Longer Active Checo Conklin MD Active FLUCONAZOLE 150 MG TABS take 1 tab po qday once 04/06 FLUCONAZOLE 01566681794 No Longer Active Dangelo Rangel MD Acti ve CIPRO 500 MG TAB 1 tablet by mouth twice daily CIPROFLOXACIN HCL 55038402173 No Longer Active Dangelo Rangel MD Active PYRIDIUM 200 MG TABS take 1 tab po TID prn urinary pain. 0 PYRIDIUM 200 MG TABS 7148325 PHENAZOPYRIDINE HCL Inactive PERCOCET 5-325 MG TABS 1 tablet by mouth every 6 hours as needed PERCOCET 5-325 MG TABS 1956516 OXYCODONE-ACETAMINOPHEN I nactive ZOFRAN ODT 4 MG TBDP 1 po q6hr PRN Nausea ZOFRAN ODT 4 MG TBDP 672344 ONDANSETRON Inactive FOCALIN XR 15 MG [id number] 1 po q a.m. F OCALIN XR 15 MG [id number] DEXMETHYLPHENIDATE HCL Inactive LORTAB 5 5-500 MG TABS 1/2 to 1 tablet by mouth flaquito ry 4 hours as needed for pain LORTAB 5 5-500 MG TABS HYDROCODONE-A CETAMINOPHEN Inactive PERCOCET 10-325 MG TABS 1 tablet every 6 hours as needed for pain PERCOCET 10-325 MG TABS 3050174 OXYCODONE-ACETAMINOPHEN Inactive FOCALIN XR 10 MG [id number] 1 po q a.m. F OCALIN XR 10 MG [id number] DEXMETHYLPHENIDATE HCL Inactive CEFDINIR 300 MG CAPS 1 po bid CEFDINIR 300 MG CAPS 20 0346 CEFDINIR Inactive ANTIPYRINE-BENZOCAINE 5.4-1.4 % SOLN 1-2 drops in affected ear ANTIPYRINE-BENZOCAINE 5.4-1.4 % SOLN 921704 BENZOCAINE-ANTIPYRINE I nactive FLONASE 50 MCG/ACT SUSP 1 spray each nostril am and hs FLONASE 50 MCG/ACT SUSP 938081 FLUTICASONE PROPIONATE Inactive PHENERGAN CREAM* 25mg applied to wrist q6hr PRN Nausea PHENERGAN CREAM* Inactive FIORICET 325-50-40 MG TAB 1 tablet by mouth four times daily as needed FIORICET 325-50-40 MG TAB ACETAMINOPHEN-C AFF-BUTALBITAL Inactive TRAZODONE HCL 100 MG TAB 0.5 to 1 po qHS PRN Insomnia TRAZODONE HCL 100 MG TAB 429943 TRAZODONE HCL Inactive CONCERTA 18 MG CR-TABS [...] s prn cough HYDROCODONE-ACETAMINOPHEN 5-325 MG TABS 204236 HYDROCODONE-ACETAMINOPHEN Inactive PHENAZOPYRIDINE HCL 200 MG TABS take 1 tab po TID for bladder pa in PHENAZOPYRIDINE HCL 200 MG TABS 3770700 PHENAZOPYRIDINE HCL Inactive HYDROCODONE-ACETAMINOPHEN 5-325 MG TABS 1 po q 6hr PRN Pain 2013 HYDROCODONE-ACETAMINOPHEN 5-325 MG TABS 799006 HYDROCODONE-ACETAMINOPHEN Inactive CELEXA 20 MG TABS 1 tablet by mouth daily CELEXA 20 MG TABS 042724 CITALOPRAM HYDROBROMIDE Inactive REGLAN 10 MG TAB 1 po TID PRN Nausea REGLAN 10 MG TAB 768296 METOCLOPRAMIDE HCL Inactive LAMISIL 250 MG TAB 1 po qd LAMISIL 250 MG TAB 794122 TERBINAFINE HCL Inactive DICLOFENAC SODIUM 75 MG TBEC 1 tablet by mouth twice daily P RN Knee pain DICLOFENAC SODIUM 75 MG TBEC 282638 DICLOFENAC S ODIUM Inactive METOCLOPRAMIDE HCL 10 MG ORAL TABS take one PO tid PRN nausea 20 29/12/14 METOCLOPRAMIDE HCL 10 MG ORAL TABS 017102 METOCLOPRAMID E HCL Inactive TERBINAFINE HCL 250 MG ORAL TABS take one table PO one time abran y TERBINAFINE HCL 250 MG ORAL TABS 286214 TERBINAFINE HCL Inactive BUPROPION HCL ER (SR) 100 MG ORAL [id number] take one t ablet by mouth one time daily for one week then take 1 two times daily BUPROPION HCL ER (SR) 100 MG ORAL [id number] BUPROPION HCL Inacti ve TRAVEL SICKNESS 25 MG ORAL CHEW chew and swallow one t ablet every 6 hours as needed TRAVEL SICKNESS 25 MG ORAL CHEW 837968 MECLIZINE HCL Inactive SUMATRIPTAN SUCCINATE 100 MG ORAL TABS Take one PRN for migrane SUMATRIPTAN SUCCINATE 100 MG ORAL TABS 963837 SUMATRIPT AN SUCCINATE Inactive COMPRO 25 MG RECTAL SUPP insert or apply one supposit ory rectally as directed every 12 hours as needed for nausea COMP RO 25 MG RECTAL SUPP 814993 PROCHLORPERAZINE Inactive ONDANSETRON [address] one tablet on tongue and allow to dissolve every 6 hours as needed for vomitting ON DANSETRON 8 MG ORAL TBDP 019100 ONDANSETRON Inactive HYDROCODONE-ACETAMINOPHEN 5-325 MG TABS 0.5 to 1 tab b y mouth every 6 hours as needed HYDROCODONE-ACETAMINOPHEN 5-325 MG TABS 8 95833 HYDROCODONE-ACETAMINOPHEN Inactive BACTRIM DS 800-160 MG TAB 1 tab by mouth twice daily 2 BACTRIM DS 800-160 MG TAB 364304 TRIMETHOPRIM-SULFAMETHOXAZOLE Inac tive DIFLUCAN 150 MG TAB 1 tablet by mouth if needed, hold until symptoms start DIFLUCAN 150 MG TAB 181405 FLUCONAZOLE Inactive IBUPROFEN 800 MG TABS 1 tab every 8 hours with food 31/03/21 IBUPROFEN 800 MG TABS 823140 IBUPROFEN Inactive HYDROCODONE-ACETAMINOPHEN 5-325 MG TABS 1 tab by mouth every 6 hours as needed HYDROCODONE-ACETAMINOPHEN 5-325 MG TABS 642087 HYDROCODONE-ACETAMINOPHEN Inactive BACTROBAN 2 % CREAM Apply to affected area BID for up to 10 days BACTROBAN 2 % CREAM 008988 MUPIROCIN CALCIUM Inactive MAGNESIUM CITRATE 1.745 GM/30ML ORAL SOLN 150ml po BID PRN C onstipation MAGNESIUM CITRATE 1.745 GM/30ML ORAL SOLN 256304 0 MAGNESIUM CITRATE Inactive DIFLUCAN 150 MG TAB 1 tablet by mouth qod DIFLUCAN 150 MG TAB 596811 FLUCONAZOLE Inactive CIPRO 500 MG TAB 1 tablet by mouth twice daily CIPRO 500 MG TAB 068561 CIPROFLOXACIN HCL Inactive FLUCONAZOLE 150 MG TABS take 1 tab po qday once 04/06 FLUCONAZOLE 150 MG TABS 907751 FLUCONAZOLE Inactive ZITHROMAX Z-KARTHIK 250 MG TABS 2 today, then 1 daily for 4 days 201 09/18/28 ZITHROMAX Z-KARTHIK 250 MG TABS 1364015 AZITHROMYCIN Inac tive PREDNISONE 20 MG TAB 2 tabs daily for 3 days, 1 t ab daily for 3 days, 1/2 tab daily for 2 days PREDNISONE 20 MG TAB 173420 PREDNISON E Inactive AZITHROMYCIN 250 MG TABS 2 po qd x 1 day, then 1 po qd x 4 days AZITHROMYCIN 250 MG TABS 9209805 AZITHROMYCIN Inactiv e PREDNISONE 20 MG TAB 2 tabs daily for 3 days, 1 t ab daily for 3 days, 1/2 tab daily for 2 days PREDNISONE 20 MG TAB 186131 PREDNISON E Inactive CEFDINIR 300 MG CAPS by mouth twice a day CEFDINIR 300 MG CAPS 475206 CEFDINIR Inactive TRIAMCINOLONE ACETONIDE 0.1 % OINT Apply to affected a reas TID for up to 2 weeks TRIAMCINOLONE ACETONIDE 0.1 % OINT 106019 6 TRIAMCINOLONE ACETONIDE Inactive PREDNISONE 20 MG TAB 2 tabs daily for 3 days, 1 t ab daily for 3 days, 1/2 tab daily for 2 days PREDNISONE 20 MG TAB 997824 PREDNISON E Inactive BACTRIM DS 800-160 MG TABS 1 po BID x 7 days 0 BACTRIM DS 800-160 MG TABS 182504 SULFAMETHOXAZOLE-TRIMETHOPRIM Inactive CIPRO 500 MG TAB 1 tablet by mouth twice daily CIPRO 500 MG TAB 770571 CIPROFLOXACIN HCL Inactive AZITHROMYCIN 250 MG TABS 2 po qd x 1 day, then 1 po qd x 4 days AZITHROMYCIN 250 MG TABS 8575454 AZITHROMYCIN Inactiv e FLAGYL 500 MG TAB 1 tablet by mouth bid FLAGYL 500 MG TAB 984603 METRONIDAZOLE Inactive AZITHROMYCIN 250 MG TABS 2 po qd x 1 day, then 1 po qd x 4 days AZITHROMYCIN 250 MG TABS 8405421 AZITHROMYCIN Inactiv e Immunizations Vaccine Administration Date [...] count 248 10^3/MM^3 10*3/mm3 142-424 Lab Report: Comp. Metabolic Panel, Lipid Panel, Thyroid Stimulating Horm ... - Chemistry sodium, serum 141 mmol/L 469-167 1950/01/26 carbon dioxide, venous blood 30.0 mmol/L 21.0-32 .0 potassium, serum 4.0 mmol/L 3.5-5.2 chloride, serum 105 mmol/L 98-107 blood glucose 85 mg/dL 65-110 urea nitrogen, blood 9 mg/dL 7-18 creatinine, serum 0.66 mg/dL 0.55-1.30 alanine aminotransferase (SGPT), serum 31 U/L 12-78 aspartate aminotransferase (SGOT), serum 21 U/L 15-37 calcium, serum 8.2 mg/dL 8.5-10.1 bilirubin, serum, total 1.10 mg/dL 0.00-1.00 cholesterol, serum 178 mg/dL 469-046 4125/01/26 triglyceride, serum, fasting 149 mg/dL 30-200 HDL [...] 1.025 1.000-1.030 pH, urine, semiquantitative 5.5 5.0-8.5 Lab Report: Comp. Metabolic Panel, Thyro id Stimulating Hormone (L), Eryt ... - Chemistry sodium, serum 137 mmol/L 370-578 8574/05/27 carbon dioxide, venous blood 29.1 mmol/L 21.0-32 [...] 5.0-8.5 Encounters Code Encounter Date Provider Facility CPT-23276 Level 3 Est. Patient 09:15:34 CDT Efren almendarez [facility] CPT-35199 Level 3 Est. Patient 11:28:51 PHYSICIAN OFFICE REP Efren almendarez [facility] CPT-62637 Level 4 Est. Patient 13:55:46 PHYSICIAN OFFICE REP Checo Conklin MD [facility] CPT-91754 Level 4 Est. Patient 17:10:53 CDT Checo Conklin MD [facility] CPT-88069 Level 3 Est. Patient 15:56:22 CDT Checo Conklin MD [facility] CPT-11489 Level 3 Est. Patient 15:29:07 CDT Checo Conklin MD [facility] CPT-98085 Level 3 Est. Patient 14:38:41 CDT Checo Conklin MD [facility] CPT-88789 Level 3 Est. Patient 15:22:03 PHYSICIAN OFFICE REP Thomas reynolds DO [facility] CPT-59724 Level 3 Est. Patient 13:34:17 PHYSICIAN OFFICE REP Checo Conklin MD [facility] CPT-50798 Level 3 Est. Patient 12:29:32 CDT Dangelo arroyo MD [facility] CPT-00129 Level 3 Est. Patient 16:53:02 CDT Checo Conklin MD [facility] CPT-38693 Level 3 Est. Patient 16:37:13 CDT Checo Conklin MD [facility] CPT-83109 Level 3 Est. Patient 16:16:59 CDT Paul Hamlin MD [facility] CPT-42369 Level 3 Est. Patient 14:20:13 CDT Dangelo arroyo MD [facility] CPT-07432 Level 4 Est. Patient 11:29:33 CDT Checo Conklin MD [facility] CPT-64389 Level 3 Est. Patient 17:08:31 CDT Checo Conklin MD [facility] CPT-95490 Level 3 Est. Patient 16:50:42 PHYSICIAN OFFICE REP Checo Conklin MD [facility] CPT-29296 Level 4 Est. Patient 09:26:08 PHYSICIAN OFFICE REP Checo Conklin MD [facility] CPT-82206 Level 3 Est. Patient 11:37:10 CDT Checo Conklin MD [facility] CPT-92571 Level 4 Est. Patient 14:07:38 CDT Checo Conklin MD [facility] CPT-68846 Level 3 Est. Patient 09:54:41 CDT Checo Conklin MD [facility] CPT-65910 Level 3 Est. Patient 11:10:54 CDT Paul Hamlin MD [facility] CPT-64212 Level 3 Est. Patient 14:16:56 PHYSICIAN OFFICE REP Checo Conklin MD [facility] CPT-46050 Level 3 Est. Patient 11:04:11 PHYSICIAN OFFICE REP Checo Conklin MD [facility] CPT-27557 Level 3 Est. Patient 17:09:26 CDT Dangelo arroyo MD [facility] CPT-18001 Level 3 Est. Patient 16:54:37 CDT Checo Conklin MD [facility] Procedures Code Procedure Name Date Entry Date Standard Desc ription CPT-OV Office Visit 11:31:28 CDT CPT-51801 Tubersol 09:39:29 CDT CPT-J2550 Phenergan 25 mg (Promethazine) 13:59:02 PHYSICIAN OFFICE REP CPT-J1885 Toradol 60 mg (Ketorolac) 13:59:02 PHYSICIAN OFFICE REP 2012
--- OUTSIDE RECORDS SUMMARY | 2019-09-29 01:28 | XMS REPORT | Clinical Summary ---
Author Author Admin, Bethany Ayala [facility] Address Unknown Phone Unavailable Allergies, Adverse Reactions, [...] MD Acute bronchitis Abdominal pain 789.00 Resolved Cheoc Conklin MD Abdominal pain, unspecified site Knee [...] TABS 1.5 po qd PAROX ETINE HCL 57753126916 Active Checo Conklin MD Active FLUTICASONE PROPIONATE 50 MCG/ACT NASAL SUSP 2 sprays/ nostril qd PRN Congestion/Allergies FLUTICASONE PROPIONATE 8150053140 5 No Longer Active Checo Conklin MD Active AMOXICILLIN 500 MG ORAL CAPS 2 po BID x 10 days 09/12 AMOXICILLIN 96466848463 No Longer Active Checo Conklin MD Activ e MIRALAX ORAL POWD 8.5 to 17g po qd PRN Constipation POLYETHYLENE GLYCOL 3350 20441356757 Active Checo Conklin MD Active CLARITIN 10 MG TAB 1 tablet by mouth daily as needed for allergi es LORATADINE 39009219437 No Longer Active Checo Conklin MD Active BACTRIM DS 800-160 MG TAB 1 tab by mouth twice daily 2 TRIMETHOPRIM-SULFAMETHOXAZOLE 18521512835 No Longer Active Tanner Carrillo MD Active DIFLUCAN 150 MG TAB 1 tablet by mouth qod FLUCO NAZOLE 33216611166 No Longer Active Efren Medel APRN Active AZITHROMYCIN 250 MG TABS 2 po qd x 1 day, then 1 po qd x 4 days AZITHROMYCIN 36490124803 No Longer Active Jillina Frajoel [employer]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 DEX METHYLPHENIDATE HCL 92263689434 Active Checo Conklin MD Active MAGNESIUM CITRATE 1.745 GM/30ML ORAL SOLN 150ml po BID PRN C onstipation MAGNESIUM CITRATE 60650863528 No Longer Active Checo Conklin MD Active BACTROBAN 2 % CREAM Apply to affected area BID for up to 10 days MUPIROCIN CALCIUM 72387398075 No Longer Active Checo Conklin MD Active HYDROCODONE-ACETAMINOPHEN 5-325 MG TABS 1 tab by mouth every 6 hours as needed HYDROCODONE-ACETAMINOPHEN 02532750210 No Longer Activ e Checo Conklin MD Active IBUPROFEN 800 MG TABS 1 tab every 8 hours with food 20 31/03/21 IBUPROFEN 15989370703 No Longer Active Checo Conklin MD Activ e DIFLUCAN 150 MG TAB 1 tablet by mouth if needed, hold until symptoms start FLUCONAZOLE 54560224544 No Longer Active Chceo Ortiz MD Active BACTRIM DS 800-160 MG TAB 1 tab by mouth twice daily 2 TRIMETHOPRIM-SULFAMETHOXAZOLE 49987497828 No Longer Active Corry leong LPN Active HYDROCODONE-ACETAMINOPHEN 5-325 MG TABS 0.5 to 1 tab b y mouth every 6 hours as needed HYDROCODONE-ACETAMINOPHEN 67048410767 No Longer Active Checo Conklin MD Active ONDANSETRON [address] one tablet on tongue and allow to dissolve every 6 hours as needed for vomitting ONDANSETRO N 61932641064 No Longer Active Checo Conklin MD Active COMPRO 25 MG RECTAL SUPP insert or apply one supposit ory rectally as directed every 12 hours as needed for nausea PROCHLORPERA ZINE 60029766643 No Longer Active Checo Conklin MD Active SUMATRIPTAN SUCCINATE 100 MG ORAL TABS Take one PRN for migrane SUMATRIPTAN SUCCINATE 37934753411 No Longer Active Checo Conklin MD Active TRAVEL SICKNESS 25 MG ORAL CHEW chew and swallow one t ablet every 6 hours as needed MECLIZINE HCL 92783421967 No Longer Active Joe Conklin MD Active BUPROPION HCL ER (SR) 100 MG ORAL [id number] take one t ablet by mouth one time daily for one week then take 1 two times daily BUPROPION HCL 63806639620 No Longer Active Checo Conklin MD Activ e TERBINAFINE HCL 250 MG ORAL TABS take one table PO one time abran y TERBINAFINE HCL 21325941752 No Longer Active Checo Conklin MD Active METOCLOPRAMIDE HCL 10 MG ORAL TABS take one PO tid PRN nausea 20 29/12/14 METOCLOPRAMIDE HCL 87087004758 No Longer Active Checo Conklin MD Active DICLOFENAC SODIUM 75 MG TBEC 1 tablet by mouth twice daily P RN Knee pain DICLOFENAC SODIUM 35023666030 No Longer Active Checo Conklin MD Active LAMISIL 250 MG TAB 1 po qd TERBINAFINE HCL 548 95970609 No Longer Active Checo Conklin MD Active REGLAN 10 MG TAB 1 po TID PRN Nausea METOCLOPRA MIDE HCL 81028135568 No Longer Active Checo Conklin MD Active CELEXA 20 MG TABS 1 tablet by mouth daily CITALOPRAM HYDROBROMIDE 53463978610 No Longer Active Checo Conklin MD Activ e AZITHROMYCIN 250 MG TABS 2 po qd x 1 day, then 1 po qd x 4 days AZITHROMYCIN 14582679559 No Longer Active Checo Conklin MD Active HYDROCODONE-ACETAMINOPHEN 5-325 MG TABS 1 po q 6hr PRN Pain 2013 HYDROCODONE-ACETAMINOPHEN 55315799972 No Longer Active Lenora Conklin MD Active PHENAZOPYRIDINE HCL 200 MG TABS take 1 tab po TID for bladder pa in PHENAZOPYRIDINE HCL 85528171253 No Longer Active Checo Joshua Active CIPRO 500 MG TAB 1 tablet by mouth twice daily CIPROFLOXACIN HCL 01415774110 No Longer Active Dangelo Rangel MD Active HYDROCODONE-ACETAMINOPHEN 5-325 MG TABS 1/2 to 1 po q 4 hour s prn cough HYDROCODONE-ACETAMINOPHEN 61874099785 No Longer Activ e Dangelo Rangel MD Active BACTRIM DS 800-160 MG TABS 1 po BID x 7 days 0 SULFAMETHOXAZOLE-TRIMETHOPRIM 63387338847 No Longer Active Checo Conklin MD Active PREDNISONE 20 MG TAB 2 tabs daily for 3 days, 1 t ab daily for 3 days, 1/2 tab daily for 2 days PREDNISONE 09033640033 No Longer Active Checo Conklin MD Active TRIAMCINOLONE ACETONIDE 0.1 % OINT Apply to affected a reas TID for up to 2 weeks TRIAMCINOLONE ACETONIDE 17189361899 No Longer A ctive Checo Conklin MD Active CEFDINIR 300 MG CAPS by mouth twice a day CEFDI JAZZY 77859926759 No Longer Active Dangelo Rangel MD Active BUPROPION HCL (SMOKING DETER) 150 MG [id number] 1 a day for 1 week then 1 twice a day BUPROPION HCL (SMOKING DETER) 18609388675 No Lo nger Active Checo Conklin MD Active SIMVASTATIN 20 MG TABS 1 po qd SIMVASTATIN 3618583403 5 Active Checo Conklin MD Active CHANTIX STARTING MONTH KARTHIK 0.5 MG X 11 & 1 MG X 42 TAB S 0.5mg daily for 3 days, then 0.5mg BID for 4 days, then 1mg BID VARENICLINE TARTRATE 23230463842 No Longer Active Checo Conklin MD Activ e XANAX 0.5 MG TABS 1 po BID PRN anxiety ALPRAZOLAM 86557720997 Active Checo Conklin MD Active CONCERTA 18 MG CR-TABS 1 po q a.m. METHYLPHENID ATE HCL 75352020253 No Longer Active Checo Conklin MD Active AMBIEN 5 MG TAB 1 po qHS PRN Insomnia ZOLPIDEM TARTRATE 57505891987 Active Checo Conklin MD Active TRAZODONE HCL 100 MG TAB 0.5 to 1 po qHS PRN Insomnia TRAZODONE HCL 79605584874 No Longer Active Checo Conklin MD Acti ve FIORICET 325-50-40 MG TAB 1 tablet by mouth four times daily as needed [id number] 65436610049 No Longer Active Checo Conklin MD Active PHENERGAN CREAM* 25mg applied to wrist q6hr PRN Nausea PHENERGAN CREAM* No Longer Active Checo Conklin MD A ctive FLONASE 50 MCG/ACT SUSP 1 spray each nostril am and hs FLUTICASONE PROPIONATE 75547058420 No Longer Active Checo Conklin MD Activ e ANTIPYRINE-BENZOCAINE 5.4-1.4 % SOLN 1-2 drops in affected ear BENZOCAINE-ANTIPYRINE 50696751115 No Longer Active Checo Conklin MD Active CEFDINIR 300 MG CAPS 1 po bid CEFDINIR 50568090 120 No Longer Active Checo Conklin MD Active PREDNISONE 20 MG TAB 2 tabs daily for 3 days, 1 t ab daily for 3 days, 1/2 tab daily for 2 days PREDNISONE 50222166764 No Longer Active Aracelis Conklin MD Active AZITHROMYCIN 250 MG TABS 2 po qd x 1 day, then 1 po qd x 4 days AZITHROMYCIN 13555292273 No Longer Active Checo Conklin MD Active PREDNISONE 20 MG TAB 2 tabs daily for 3 days, 1 t ab daily for 3 days, 1/2 tab daily for 2 days PREDNISONE 45254878611 No Longer Active Checo Conklin MD Active ZITHROMAX Z-KARTHIK 250 MG TABS 2 today, then 1 daily for 4 days 201 09/18/28 AZITHROMYCIN 70836842008 No Longer Active Paul Hamlin MD Active FOCALIN XR 10 MG [id number] 1 po q a.m. D EXMETHYLPHENIDATE HCL 80055478224 No Longer Active Paul Hamlin MD Activ e PERCOCET 10-325 MG TABS 1 tablet every 6 hours as needed for pain OXYCODONE-ACETAMINOPHEN 81432912151 No Longer Active Paul Hamlin MD Active LORTAB 5 5-500 MG TABS 1/2 to 1 tablet by mouth flaquito ry 4 hours as needed for pain HYDROCODONE-ACETAMINOPHEN 42588501803 No Longer Active Checo Conklin MD Active FOCALIN XR 15 MG [id number] 1 po q a.m. D EXMETHYLPHENIDATE HCL 48339011209 No Longer Active Checo Conklin MD Activ e ZOFRAN ODT 4 MG TBDP 1 po q6hr PRN Nausea ONDAN SETRON 50670298073 No Longer Active Checo Conklin MD Active PERCOCET 5-325 MG TABS 1 tablet by mouth every 6 hours as needed OXYCODONE-ACETAMINOPHEN 81952780835 No Longer Active Checo Conklin MD Active PYRIDIUM 200 MG TABS take 1 tab po TID prn urinary pain. 0 PHENAZOPYRIDINE HCL 82402783064 No Longer Active Checo Conklin MD Active FLUCONAZOLE 150 MG TABS take 1 tab po qday once 04/06 FLUCONAZOLE 41055149643 No Longer Active Dangelo Rangel MD Acti ve CIPRO 500 MG TAB 1 tablet by mouth twice daily CIPROFLOXACIN HCL 91262896760 No Longer Active Dangelo Rangel MD Active PYRIDIUM 200 MG TABS take 1 tab po TID prn urinary pain. 0 PYRIDIUM 200 MG TABS 4536151 PHENAZOPYRIDINE HCL Inactive PERCOCET 5-325 MG TABS 1 tablet by mouth every 6 hours as needed PERCOCET 5-325 MG TABS 3178553 OXYCODONE-ACETAMINOPHEN I nactive ZOFRAN ODT 4 MG TBDP 1 po q6hr PRN Nausea ZOFRAN ODT 4 MG TBDP 076386 ONDANSETRON Inactive FOCALIN XR 15 MG [id number] 1 po q a.m. F OCALIN XR 15 MG [id number] DEXMETHYLPHENIDATE HCL Inactive LORTAB 5 5-500 MG TABS 1/2 to 1 tablet by mouth flaquito ry 4 hours as needed for pain LORTAB 5 5-500 MG TABS HYDROCODONE-A CETAMINOPHEN Inactive PERCOCET 10-325 MG TABS 1 tablet every 6 hours as needed for pain PERCOCET 10-325 MG TABS 3888102 OXYCODONE-ACETAMINOPHEN Inactive FOCALIN XR 10 MG [id number] 1 po q a.m. F OCALIN XR 10 MG [id number] DEXMETHYLPHENIDATE HCL Inactive CEFDINIR 300 MG CAPS 1 po bid CEFDINIR 300 MG CAPS 20 0346 CEFDINIR Inactive ANTIPYRINE-BENZOCAINE 5.4-1.4 % SOLN 1-2 drops in affected ear ANTIPYRINE-BENZOCAINE 5.4-1.4 % SOLN BENZOCAINE-ANTIPYRINE I nactive FLONASE 50 MCG/ACT SUSP 1 spray each nostril am and hs FLONASE 50 MCG/ACT SUSP 1083052 FLUTICASONE PROPIONATE Inactive PHENERGAN CREAM* 25mg applied to wrist q6hr PRN Nausea PHENERGAN CREAM* Inactive FIORICET 325-50-40 MG TAB 1 tablet by mouth four times daily as needed FIORICET 325-50-40 MG TAB ACETAMINOPHEN-C AFF-BUTALBITAL Inactive TRAZODONE HCL 100 MG TAB 0.5 to 1 po qHS PRN Insomnia TRAZODONE HCL 100 MG TAB 392742 TRAZODONE HCL Inactive CONCERTA 18 MG CR-TABS [...] s prn cough HYDROCODONE-ACETAMINOPHEN 5-325 MG TABS 404659 HYDROCODONE-ACETAMINOPHEN Inactive PHENAZOPYRIDINE HCL 200 MG TABS take 1 tab po TID for bladder pa in PHENAZOPYRIDINE HCL 200 MG TABS 0569573 PHENAZOPYRIDINE HCL Inactive HYDROCODONE-ACETAMINOPHEN 5-325 MG TABS 1 po q 6hr PRN Pain 2013 HYDROCODONE-ACETAMINOPHEN 5-325 MG TABS 064713 HYDROCODONE-ACETAMINOPHEN Inactive CELEXA 20 MG TABS 1 tablet by mouth daily CELEXA 20 MG TABS 978083 CITALOPRAM HYDROBROMIDE Inactive REGLAN 10 MG TAB 1 po TID PRN Nausea REGLAN 10 MG TAB 054919 METOCLOPRAMIDE HCL Inactive LAMISIL 250 MG TAB 1 po qd LAMISIL 250 MG TAB 809249 TERBINAFINE HCL Inactive DICLOFENAC SODIUM 75 MG TBEC 1 tablet by mouth twice daily P RN Knee pain DICLOFENAC SODIUM 75 MG TBEC 559130 DICLOFENAC S ODIUM Inactive METOCLOPRAMIDE HCL 10 MG ORAL TABS take one PO tid PRN nausea 20 29/12/14 METOCLOPRAMIDE HCL 10 MG ORAL TABS 009389 METOCLOPRAMID E HCL Inactive TERBINAFINE HCL 250 MG ORAL TABS take one table PO one time abran y TERBINAFINE HCL 250 MG ORAL TABS 027559 TERBINAFINE HCL Inactive BUPROPION HCL ER (SR) 100 MG ORAL [id number] take one t ablet by mouth one time daily for one week then take 1 two times daily BUPROPION HCL ER (SR) 100 MG ORAL [id number] BUPROPION HCL Inacti ve TRAVEL SICKNESS 25 MG ORAL CHEW chew and swallow one t ablet every 6 hours as needed TRAVEL SICKNESS 25 MG ORAL CHEW 131819 MECLIZINE HCL Inactive SUMATRIPTAN SUCCINATE 100 MG ORAL TABS Take one PRN for migrane SUMATRIPTAN SUCCINATE 100 MG ORAL TABS 460082 SUMATRIPT AN SUCCINATE Inactive COMPRO 25 MG RECTAL SUPP insert or apply one supposit ory rectally as directed every 12 hours as needed for nausea COMP RO 25 MG RECTAL SUPP 333960 PROCHLORPERAZINE Inactive ONDANSETRON [address] one tablet on tongue and allow to dissolve every 6 hours as needed for vomitting ON DANSETRON 8 MG ORAL TBDP 772940 ONDANSETRON Inactive HYDROCODONE-ACETAMINOPHEN 5-325 MG TABS 0.5 to 1 tab b y mouth every 6 hours as needed HYDROCODONE-ACETAMINOPHEN 5-325 MG TABS 8 59276 HYDROCODONE-ACETAMINOPHEN Inactive BACTRIM DS 800-160 MG TAB 1 tab by mouth twice daily 2 BACTRIM DS 800-160 MG TAB 044638 TRIMETHOPRIM-SULFAMETHOXAZOLE Inac tive DIFLUCAN 150 MG TAB 1 tablet by mouth if needed, hold until symptoms start DIFLUCAN 150 MG TAB 19760325 FLUCONAZOLE Inactive IBUPROFEN 800 MG TABS 1 tab every 8 hours with food 31/03/21 IBUPROFEN 800 MG TABS 353347 IBUPROFEN Inactive HYDROCODONE-ACETAMINOPHEN 5-325 MG TABS 1 tab by mouth every 6 hours as needed HYDROCODONE-ACETAMINOPHEN 5-325 MG TABS 629013 HYDROCODONE-ACETAMINOPHEN Inactive BACTROBAN 2 % CREAM Apply to affected area BID for up to 10 days BACTROBAN 2 % CREAM 126677 MUPIROCIN CALCIUM Inactive MAGNESIUM CITRATE 1.745 GM/30ML ORAL SOLN 150ml po BID PRN C onstipation MAGNESIUM CITRATE 1.745 GM/30ML ORAL SOLN 332534 0 MAGNESIUM CITRATE Inactive DIFLUCAN 150 MG TAB 1 tablet by mouth qod DIFLUCAN 150 MG TAB 495400 FLUCONAZOLE Inactive BACTRIM DS 800-160 MG TAB 1 tab by mouth twice daily 2 BACTRIM DS 800-160 MG TAB 19820918 TRIMETHOPRIM-SULFAMETHOXAZOLE Inac tive CLARITIN 10 MG TAB 1 tablet by mouth daily as needed for allergi es CLARITIN 10 MG TAB 486416 LORATADINE Inactive FLUTICASONE PROPIONATE 50 MCG/ACT NASAL SUSP 2 sprays/ nostril qd PRN Congestion/Allergies FLUTICASONE PROPION ATE 50 MCG/ACT NASAL SUSP 5065002 FLUTICASONE PROPIONATE Inactive CIPRO 500 MG TAB 1 tablet by mouth twice daily CIPRO 500 MG TAB 837527 CIPROFLOXACIN HCL Inactive FLUCONAZOLE 150 MG TABS take 1 tab po qday once 04/06 FLUCONAZOLE 150 MG TABS 307193 FLUCONAZOLE Inactive ZITHROMAX Z-KARTHIK 250 MG TABS 2 today, then 1 daily for 4 days 201 09/18/28 ZITHROMAX Z-KARTHIK 250 MG TABS 7236403 AZITHROMYCIN Inac tive PREDNISONE 20 MG TAB 2 tabs daily for 3 days, 1 t ab daily for 3 days, 1/2 tab daily for 2 days PREDNISONE 20 MG TAB 041964 PREDNISON E Inactive AZITHROMYCIN 250 MG TABS 2 po qd x 1 day, then 1 po qd x 4 days AZITHROMYCIN 250 MG TABS 7884238 AZITHROMYCIN Inactiv e PREDNISONE 20 MG TAB 2 tabs daily for 3 days, 1 t ab daily for 3 days, 1/2 tab daily for 2 days PREDNISONE 20 MG TAB 191225 PREDNISON E Inactive CEFDINIR 300 MG CAPS by mouth twice a day CEFDINIR 300 MG CAPS 073289 CEFDINIR Inactive TRIAMCINOLONE ACETONIDE 0.1 % OINT Apply to affected a reas TID for up to 2 weeks TRIAMCINOLONE ACETONIDE 0.1 % OINT 100652 6 TRIAMCINOLONE ACETONIDE Inactive PREDNISONE 20 MG TAB 2 tabs daily for 3 days, 1 t ab daily for 3 days, 1/2 tab daily for 2 days PREDNISONE 20 MG TAB 820753 PREDNISON E Inactive BACTRIM DS 800-160 MG TABS 1 po BID x 7 days 0 BACTRIM DS 800-160 MG TABS 760672 SULFAMETHOXAZOLE-TRIMETHOPRIM Inactive CIPRO 500 MG TAB 1 tablet by mouth twice daily CIPRO 500 MG TAB 620813 CIPROFLOXACIN HCL Inactive AZITHROMYCIN 250 MG TABS 2 po qd x 1 day, then 1 po qd x 4 days AZITHROMYCIN 250 MG TABS 4548933 AZITHROMYCIN Inactiv e FLAGYL 500 MG TAB 1 tablet by mouth bid FLAGYL 500 MG TAB 380375 METRONIDAZOLE Inactive AZITHROMYCIN 250 MG TABS 2 po qd x 1 day, then 1 po qd x 4 days AZITHROMYCIN 250 MG TABS 0973586 AZITHROMYCIN Inactiv e AMOXICILLIN 500 MG ORAL CAPS 2 po BID x 10 days 09/12 AMOXICILLIN 500 MG ORAL CAPS 638197 AMOXICILLIN Inactive Immunizations Vaccine Administration Date Value [...] weight E&M 130.3 [lb_av] Weight Measure d blood pressure, diastolic 73 mm[Hg] BP mathew blood pressure, systolic 112 mm[Hg] BP sys pulse rate E&M 65 /min Heart rate temperature E&M 97.5 [degF] Body temp erature weight E&M 126 [lb_av] Weight Measure d Diagnostic Results Date Name Value Unit Range Description Lab Report: CBC W/DIFF, Comp. Metabolic Panel, Qual [facility] - Chemistry sodium, serum 139 mmol/L 613-362 1814/10/21 carbon dioxide, venous blood 33.5 mmol/L 21.0-32 [...] [facility] [place] [facility] Hematology leukocyte count, blood 7.9 10^3/MM^3 [...] PANEL - Chemistry cholesterol, serum 192 mg/dL 048-532 2173/02/20 HDL cholesterol, serum 31 mg/dL > OR [...] 11 .0-15.0 platelet count 218 THOUSAND/UL 10*3/mm3 311-210 2956/02/20 mean platelet volume 9.7 fL 7.5-12.5 Lab Report: Chlamydia/GC APTIMA/73954 - Lab chlamydia DNA probe NOT DETECTED NOT DETECTED Lab Report: Chlamydia/GC [facility]TIMA/11425 - Microbiology Neisseria gonorrhoeae DNA probe NOT [...] 5.0-8.5 Encounters Code Encounter Date Provider Facility CPT-65811 Level 3 Est. Patient 13:05:44 CDT Paul Hamlin MD [facility] CPT-46161 Level 3 Est. Patient 11:29:55 CDT Checo Conklin MD [facility] CPT-18157 Level 4 Est. Patient 11:08:12 BARGE MASTER Checo Conklin MD [facility] CPT-49807 Level 4 Est. Patient 16:06:48 BARGE MASTER hCeco Conklin MD [facility] CPT-67189 Level 3 Est. Patient 09:11:49 CDT Efren almendarez [facility] CPT-32094 Level 2 Est. Patient 19:53:27 CDT Tanner hill MD [facility] CPT-20250 Level 3 Est. Patient 09:15:34 CDT Efren almendarez [facility] CPT-61205 Level 3 Est. Patient 11:28:51 BARGE MASTER Efren almendarez [facility] CPT-90369 Level 4 Est. Patient 13:55:46 BARGE MASTER Checo Conklin MD [facility] CPT-74090 Level 4 Est. Patient 17:10:53 CDT Checo Conklin MD [facility] CPT-68140 Level 3 Est. Patient 15:56:22 CDT Checo Conklin MD [facility] CPT-91524 Level 3 Est. Patient 15:29:07 CDT Checo Conklin MD [facility] CPT-97444 Level 3 Est. Patient 14:38:41 CDT Checo Conklin MD [facility] CPT-39539 Level 3 Est. Patient 15:22:03 BARGE MASTER Thomas reynolds DO [facility] CPT-09946 Level 3 Est. Patient 13:34:17 BARGE MASTER Checo Conklin MD [facility] CPT-37692 Level 3 Est. Patient 12:29:32 CDT Dangelo arroyo MD [facility] CPT-11260 Level 3 Est. Patient 16:53:02 CDT Checo Conklin MD [facility] CPT-43356 Level 3 Est. Patient 16:37:13 CDT Checo Conklin MD [facility] CPT-55280 Level 3 Est. Patient 16:16:59 CDT Paul Hamlin MD [facility] CPT-22440 Level 3 Est. Patient 14:20:13 CDT Dangelo arroyo MD [facility] CPT-73267 Level 4 Est. Patient 11:29:33 CDT Checo Conklin MD [facility] CPT-33040 Level 3 Est. Patient 17:08:31 CDT Checo Conklin MD [facility] CPT-53040 Level 3 Est. Patient 16:50:42 BARGE MASTER Checo Conklin MD [facility] CPT-66869 Level 4 Est. Patient 09:26:08 BARGE MASTER Checo Conklin MD [facility]-57312 Level 3 Est. Patient 11:37:10 CDT Checo Conklin MD [facility] CPT-76357 Level 4 Est. Patient 14:07:38 CDT Checo Conklin MD [facility] CPT-54502 Level 3 Est. Patient 09:54:41 CDT Checo Conklin MD [facility] CPT-81456 Level 3 Est. Patient 11:10:54 CDT Paul Hamlin MD [facility] CPT-18793 Level 3 Est. Patient 14:16:56 BARGE MASTER Checo Conklin MD [facility] CPT-90209 Level 3 Est. Patient 11:04:11 BARGE MASTER Checo Conklin MD [facility] CPT-77698 Level 3 Est. Patient 17:09:26 CDT Dangelo arroyo MD [facility] CPT-36732 Level 3 Est. Patient 16:54:37 CDT Checo Conklin MD [facility] Procedures Code Procedure Name Date Entry Date Standard Desc ription CPT-51581 UA w micro - LAB USE ONLY 17:06:46 CDT 2015 CPT-00425 BHCG Qual - LAB USE ONLY 17:06:46 CDT 05/06 CPT-07998 CMP - LAB USE ONLY 17:06:46 CDT CPT-64945 CBC with Diff - LAB USE ONLY 17:06:45 CDT 2 CPT-24142 Venipuncture Draw Fee 17:06:45 CDT CPT-LR Lesion Removal 19:53:27 CDT CPT-OV Office Visit 11:31:28 CDT CPT-04204 Tubersol 09:39:29 CDT CPT-J2550 Phenergan 25 mg (Promethazine) 13:59:02 BARGE MASTER CPT-J1885 Toradol 60 mg (Ketorolac) 13:59:02 BARGE MASTER 2012
--- OUTSIDE RECORDS SUMMARY | 2019-09-29 01:28 | XMS REPORT | Clinical Summary ---
Author Author Admin, Bethany Ayala [facility] Address Unknown Phone Unavailable Allergies, Adverse [...] Inactive Checo Conklin MD HEADACHE, TENSION ICD-307.81 Ozzy Conklin MD PHARYNGITIS ICD-462 Inactive Checo Conklin [...] TABLET 1 po qd PAR OXETINE HCL [id number] Active Checo Conklin MD Active MIRALAX ORAL POWDER 8.5 to 17g po qd PRN Constipation POLYETHYLENE GLYCOL 3350 [id number] No Longer Active Checo Conklin MD Active PROTONIX 40 MG ORAL TABLET DELAYED RELEASE 1 pill by m outh daily, for acid reflux PANTOPRAZOLE SODIUM 75381160185 No Longer Activ e Corry Méndez LPN Active FLAGYL 500 MG ORAL TABLET 1 tablet by mouth bid 08/29 METRONIDAZOLE 91621769534 No Longer Active Corry Méndez LPN Active CLARITHROMYCIN 500 MG ORAL TABLET 1 tab po BID x 14 days CLARITHROMYCIN 23521300678 No Longer Active Corry Méndez LPN Active AMOXICILLIN 500 MG ORAL CAPSULE 2 po BID x 14 days for H. Pylori AMOXICILLIN 92330595057 No Longer Active Corry Méndez LPN Active FLUTICASONE PROPIONATE 50 MCG/ACT NASAL SUSPENSION 2 s prays/nostril qd PRN Congestion/Allergies FLUTICASONE PROPIONATE 6124801411 9 No Longer Active Checo Conklin MD Active AMOXICILLIN 500 MG ORAL CAPSULE 2 po BID x 10 days 201 01/15/27 AMOXICILLIN 03364329646 No Longer Active Checo Conklin MD Activ e CLARITIN 10 MG ORAL TABLET 1 tablet by mouth daily as needed for allergies LORATADINE 56216319462 No Longer Active Checo Ortiz MD Active BACTRIM DS 800-160 MG ORAL TABLET 1 tab by mouth twice daily 201 12/19/26 TRIMETHOPRIM-SULFAMETHOXAZOLE 72765097332 No Longer Active Ragini Carrillo MD Active DIFLUCAN 150 MG ORAL TABLET 1 tablet by mouth qod 2015 FLUCONAZOLE 53926567961 No Longer Active Efren Medel APRN Act mike AZITHROMYCIN 250 MG ORAL TABLET 2 po qd x 1 day, then 1 po q d x 4 days AZITHROMYCIN 79768403451 No Longer Active Efren flores APRN Active FLAGYL 500 MG ORAL TABLET 1 tablet by mouth bid 04/13 METRONIDAZOLE 90514593452 No Longer Active Checo Conklin MD Acti ve FOCALIN XR 10 MG ORAL CAPSULE EXTENDED RELEASE 24 HOUR 1 po q a.m. DEXMETHYLPHENIDATE HCL 38591946713 Active Checo Conklin MD Active MAGNESIUM CITRATE 1.745 GM/30ML ORAL SOLUTION 150ml po BID P RN Constipation MAGNESIUM CITRATE 96222806725 No Longer Active Checo Conklin MD Active BACTROBAN 2 % EXTERNAL CREAM Apply to affected area BID for up to 10 days MUPIROCIN CALCIUM 26294085426 No Longer Active Checo Conklin MD Active HYDROCODONE-ACETAMINOPHEN 5-325 MG ORAL TABLET 1 tab b y mouth every 6 hours as needed HYDROCODONE-ACETAMINOPHEN 39382632060 No Longer Active Checo Conklin MD Active IBUPROFEN 800 MG ORAL TABLET 1 tab every 8 hours with food 03/20 IBUPROFEN 21146207228 No Longer Active Checo Conklin MD Active DIFLUCAN 150 MG ORAL TABLET 1 tablet by mouth if neede d, hold until symptoms start FLUCONAZOLE 91564064521 No Longer Active Checo Conklin MD Active BACTRIM DS 800-160 MG ORAL TABLET 1 tab by mouth twice daily 201 11/23/03 TRIMETHOPRIM-SULFAMETHOXAZOLE 38406813191 No Longer Active K bernice Méndez LPN Active HYDROCODONE-ACETAMINOPHEN 5-325 MG ORAL TABLET 0.5 to 1 tab by mouth every 6 hours as needed HYDROCODONE-ACETAMINOPHEN 21051095298 No Longer Active Checo Conklin MD Active ONDANSETRON 8 MG ORAL TABLET DISINTEGRATING place one tablet on tongue and allow to dissolve every 6 hours as needed for vomitting ONDANSETRON 81872917176 No Longer Active Checo Conklin MD Activ e COMPRO 25 MG RECTAL SUPPOSITORY insert or apply one garza ppository rectally as directed every 12 hours as needed for nausea PROCHLORPERAZINE 45263308562 No Longer Active Checo Conklin MD A ctive SUMATRIPTAN SUCCINATE 100 MG ORAL TABLET Take one PRN for migran e SUMATRIPTAN SUCCINATE 99387437328 No Longer Active Checo Conklin MD Active TRAVEL SICKNESS 25 MG ORAL TABLET CHEWABLE chew and sw allow one tablet every 6 hours as needed MECLIZINE HCL 44582334644 No Longer A ctive Checo Conklin MD Active BUPROPION HCL ER (SR) 100 MG ORAL TABLET EXTENDED RELE ASE 12 HOUR take one tablet by mouth one time daily for one week then take 1 two times daily BUPROPION HCL 84578030859 No Longer Active Checo gallagher MD Active TERBINAFINE HCL 250 MG ORAL TABLET take one table PO one time da moises TERBINAFINE HCL 09345251246 No Longer Active Checo Conklin MD Active METOCLOPRAMIDE HCL 10 MG ORAL TABLET take one PO tid PRN nausea METOCLOPRAMIDE HCL 21924661619 No Longer Active Checo Conklin MD Active DICLOFENAC SODIUM 75 MG ORAL TABLET DELAYED RELEASE 1 tablet by mouth twice daily PRN Knee pain DICLOFENAC SODIUM 10613653831 No Longer Active Checo Conklin MD Active LAMISIL 250 MG ORAL TABLET 1 po qd TERBINAFI NE HCL 80551675457 No Longer Active Checo Conklin MD Active REGLAN 10 MG ORAL TABLET 1 po TID PRN Nausea 3 METOCLOPRAMIDE HCL 51372592018 No Longer Active Checo Conklin MD Active CELEXA 20 MG ORAL TABLET 1 tablet by mouth daily 09/26 CITALOPRAM HYDROBROMIDE 11566481718 No Longer Active Checo Conklin MD Active AZITHROMYCIN 250 MG ORAL TABLET 2 po qd x 1 day, then 1 po q d x 4 days AZITHROMYCIN 06101251689 No Longer Active Checo Ortiz MD Active HYDROCODONE-ACETAMINOPHEN 5-325 MG ORAL TABLET 1 po q 6hr PRN Pa in HYDROCODONE-ACETAMINOPHEN 45788984865 No Longer Active Lenora Conklin MD Active PHENAZOPYRIDINE HCL 200 MG ORAL TABLET take 1 tab po TID for bladder pain PHENAZOPYRIDINE HCL 91931506514 No Longer Active Joe Conklin MD Active CIPRO 500 MG ORAL TABLET 1 tablet by mouth twice daily CIPROFLOXACIN HCL 39257896588 No Longer Active Dangelo Rangel MD Active HYDROCODONE-ACETAMINOPHEN 5-325 MG ORAL TABLET 1/2 to 1 po q 4 hours prn cough HYDROCODONE-ACETAMINOPHEN 18556240742 No Longer Activ e Dangelo Rangel MD Active BACTRIM DS 800-160 MG ORAL TABLET 1 po BID x 7 days 29/04/10 SULFAMETHOXAZOLE-TRIMETHOPRIM 36693234316 No Longer Active Checo Conklin MD Active PREDNISONE 20 MG ORAL TABLET 2 tabs daily for 3 days, 1 tab daily for 3 days, 1/2 tab daily for 2 days PREDNISONE 63821735537 No Longer Active Checo Conklin MD Active TRIAMCINOLONE ACETONIDE 0.1 % EXTERNAL OINTMENT Apply to affected areas TID for up to 2 weeks TRIAMCINOLONE ACETONIDE 56648912697 No Longer Active Checo Conklin MD Active CEFDINIR 300 MG ORAL CAPSULE by mouth twice a day 2013 CEFDINIR 23660850256 No Longer Active Dangelo Rangel MD Acti ve BUPROPION HCL ER (SMOKING DET) 150 MG ORAL TABLET EXTE NDED RELEASE 12 HOUR 1 a day for 1 week then 1 twice a day BUPROPION HCL (SMOKING DETER) 41340289656 No Longer Active Checo Conklin MD Active SIMVASTATIN 20 MG ORAL TABLET 1 po qd SIMVASTAT IN 48709349228 Active Checo Conklin MD Active CHANTIX STARTING MONTH KARTHIK 0.5 MG X 11 & 1 MG X 42 ORA L TABLET 0.5mg daily for 3 days, then 0.5mg BID for 4 days, then 1mg BID VARENICLINE TARTRATE 12409988788 No Longer Active Checo Conklin MD Activ e XANAX 0.5 MG ORAL TABLET 1 po BID PRN anxiety A LPRAZOLAM 40293656825 Active Checo Conklin MD Active CONCERTA 18 MG ORAL TABLET EXTENDED RELEASE 1 po q a.m. METHYLPHENIDATE HCL 51030972908 No Longer Active Checo Conklin MD Active AMBIEN 5 MG ORAL TABLET 1 po qHS PRN Insomnia Z OLPIDEM TARTRATE 61866335151 Active Checo Conklin MD Active TRAZODONE HCL 100 MG ORAL TABLET 0.5 to 1 po qHS PRN Insomnia 20 30/07/08 TRAZODONE HCL 17897535250 No Longer Active Checo Conklin MD Active FIORICET 325-50-40 MG TAB 1 tablet by mouth four times daily as needed [id number] 23565274131 No Longer Active Checo Conklin MD Active PHENERGAN CREAM* 25mg applied to wrist q6hr PRN Nausea PHENERGAN CREAM* No Longer Active Checo Conklin MD A ctive FLONASE 50 MCG/ACT NASAL SUSPENSION 1 spray each nostril am and hs FLUTICASONE PROPIONATE 44388223937 No Longer Active Checo Conklin MD Active ANTIPYRINE-BENZOCAINE 5.4-1.4 % OTIC SOLUTION 1-2 drops in affec yohannes ear BENZOCAINE-ANTIPYRINE 56223411578 No Longer Active Checo Conklin MD Active CEFDINIR 300 MG ORAL CAPSULE 1 po bid CEFDINIR 35021989189 No Longer Active Checo Conklin MD Active PREDNISONE 20 MG ORAL TABLET 2 tabs daily for 3 days, 1 tab daily for 3 days, 1/2 tab daily for 2 days PREDNISONE 71398961370 No Longer Active Checo Conklin MD Active AZITHROMYCIN 250 MG ORAL TABLET 2 po qd x 1 day, then 1 po q d x 4 days AZITHROMYCIN 65367499667 No Longer Active Checo Ortiz MD Active PREDNISONE 20 MG ORAL TABLET 2 tabs daily for 3 days, 1 tab daily for 3 days, 1/2 tab daily for 2 days PREDNISONE 86570923468 No Longer Active Checo Conklin MD Active ZITHROMAX Z-KARTHIK 250 MG ORAL TABLET 2 today, then 1 daily for 4 d ays AZITHROMYCIN 54239147090 No Longer Active Paul Hamlin MD Active FOCALIN XR 10 MG ORAL CAPSULE EXTENDED RELEASE 24 HOUR 1 po q a. m. DEXMETHYLPHENIDATE HCL 03295988527 No Longer Active Paul Hamlin MD Active PERCOCET 10-325 MG ORAL TABLET 1 tablet every 6 hours as needed for pain OXYCODONE-ACETAMINOPHEN 10430207863 No Longer Active Paul Hamlin MD Active LORTAB 5-500 MG ORAL TABLET 1/2 to 1 tablet by mouth e very 4 hours as needed for pain HYDROCODONE-ACETAMINOPHEN 36030235444 No Longer Active Checo Conklin MD Active FOCALIN XR 15 MG ORAL CAPSULE EXTENDED RELEASE 24 HOUR 1 po q a. m. DEXMETHYLPHENIDATE HCL 74437241817 No Longer Active Checo Conklin MD Active ZOFRAN ODT 4 MG ORAL TABLET DISINTEGRATING 1 po q6hr PRN Nausea ONDANSETRON 03201314914 No Longer Active Checo Conklin MD Active PERCOCET 5-325 MG ORAL TABLET 1 tablet by mouth every 6 hour s as needed OXYCODONE-ACETAMINOPHEN 94128744882 No Longer Active Checo Conklin MD Active PYRIDIUM 200 MG ORAL TABLET take 1 tab po TID prn urinary pain. PHENAZOPYRIDINE HCL 57085378498 No Longer Active Checo Joshua Active FLUCONAZOLE 150 MG ORAL TABLET take 1 tab po qday once FLUCONAZOLE 29415261682 No Longer Active Dangelo Rangel MD Acti ve CIPRO 500 MG ORAL TABLET 1 tablet by mouth twice daily CIPROFLOXACIN HCL 98115331467 No Longer Active Dangelo Rangel MD Active PYRIDIUM 200 MG ORAL TABLET take 1 tab po TID prn urinary pain. PYRIDIUM 200 MG ORAL TABLET 4537501 PHENAZOPYRIDINE HCL Inactive PERCOCET 5-325 MG ORAL TABLET 1 tablet by mouth every 6 hour s as needed PERCOCET 5-325 MG ORAL TABLET 2289788 OXYCODONE-ACETAMINOPHEN Inactive ZOFRAN ODT 4 MG ORAL TABLET DISINTEGRATING 1 po q6hr PRN Nausea ZOFRAN ODT 4 MG ORAL TABLET DISINTEGRATING 996172 ONDAN SETRON Inactive FOCALIN XR 15 MG [...] for pain PERCOCET 10-325 MG ORAL TABLET 8998483 OXYCODONE-ACETAMI NOPHEN Inactive FOCALIN XR 10 MG ORAL CAPSULE EXTENDED RELEASE 24 HOUR 1 po q a. m. FOCALIN XR 10 MG ORAL CAPSULE EXTENDED RELEASE 24 HOUR DEXMETHYLPHENIDATE HCL Inactive CEFDINIR 300 MG ORAL CAPSULE 1 po bid CEFDINI R 300 MG ORAL CAPSULE 984079 CEFDINIR Inactive ANTIPYRINE-BENZOCAINE 5.4-1.4 % OTIC SOLUTION 1-2 drops in affec yohannes ear ANTIPYRINE-BENZOCAINE 5.4-1.4 % OTIC SOLUTION 883085 BENZOCAINE-ANTIPYRINE Inactive FLONASE 50 MCG/ACT NASAL SUSPENSION 1 spray each nostril am and hs FLONASE 50 MCG/ACT NASAL SUSPENSION 2838068 FLUTICASONE PROPIONATE I nactive PHENERGAN CREAM* 25mg applied to wrist q6hr PRN Nausea PHENERGAN CREAM* Inactive FIORICET 325-50-40 MG TAB 1 tablet by mouth four times daily as needed FIORICET 325-50-40 MG TAB ACETAMINOPHEN-C AFF-BUTALBITAL Inactive TRAZODONE HCL 100 MG ORAL TABLET 0.5 to 1 po qHS PRN Insomnia 20 30/07/08 TRAZODONE HCL 100 MG ORAL TABLET 699494 TRAZODONE HCL Inactive CONCERTA 18 MG ORAL [...] cough HYDROCODONE-ACETAMINOPHEN 5-325 MG ORAL TABLET 8 08772 HYDROCODONE-ACETAMINOPHEN Inactive PHENAZOPYRIDINE HCL 200 MG ORAL TABLET take 1 tab po TID for bladder pain PHENAZOPYRIDINE HCL 200 MG ORAL TABLET 9958151 PHENAZOPYRIDINE HCL Inactive HYDROCODONE-ACETAMINOPHEN 5-325 MG ORAL TABLET 1 po q 6hr PRN Pa in HYDROCODONE-ACETAMINOPHEN 5-325 MG ORAL TABLET 992957 HYDROCODONE-ACETAMINOPHEN Inactive CELEXA 20 MG ORAL TABLET 1 tablet by mouth daily 09/26 CELEXA 20 MG ORAL TABLET 402357 CITALOPRAM HYDROBROMIDE Inactive REGLAN 10 MG ORAL TABLET 1 po TID PRN Nausea 3 REGLAN 10 MG ORAL TABLET 600059 METOCLOPRAMIDE HCL Inactive LAMISIL 250 MG ORAL TABLET 1 po qd L AMISIL 250 MG ORAL TABLET 611849 TERBINAFINE HCL Inactive DICLOFENAC SODIUM 75 MG ORAL TABLET DELAYED RELEASE 1 tablet by mouth twice daily PRN Knee pain DICLOFENAC SODIUM 75 MG ORAL TABLET DELAYED RELEASE 846244 DICLOFENAC SODIUM Inactive METOCLOPRAMIDE HCL 10 MG ORAL TABLET take one PO tid PRN nausea METOCLOPRAMIDE HCL 10 MG ORAL TABLET 096501 METOCLOPRAM ZACH HCL Inactive TERBINAFINE HCL 250 MG ORAL TABLET take one table PO one time da moises TERBINAFINE HCL 250 MG ORAL TABLET 490287 TERBINAFINE H CL Inactive BUPROPION HCL ER [...] SICKNESS 25 M G ORAL TABLET CHEWABLE 944029 MECLIZINE HCL Inactive SUMATRIPTAN SUCCINATE 100 MG ORAL TABLET Take one PRN for migran e SUMATRIPTAN SUCCINATE 100 MG ORAL TABLET 232981 SUMATRIPTAN SUCCINATE Inactive COMPRO 25 MG RECTAL SUPPOSITORY insert or apply one garza ppository rectally as directed every 12 hours as needed for nausea COMPRO 25 MG RECTAL SUPPOSITORY 906246 PROCHLORPERAZINE Inactive ONDANSETRON 8 MG ORAL TABLET DISINTEGRATING place one tablet on tongue and allow to dissolve every 6 hours as needed for vomitting ONDANSETRON 8 MG ORAL TABLET DISINTEGRATING 958897 ONDANSETRON Inactive HYDROCODONE-ACETAMINOPHEN 5-325 MG ORAL TABLET 0.5 to 1 tab by mouth every 6 hours as needed HYDROCODONE-ACETAMIN OPHEN 5-325 MG ORAL TABLET 673378 HYDROCODONE-ACETAMINOPHEN Inactive BACTRIM DS 800-160 MG ORAL TABLET 1 tab by mouth twice daily 201 11/23/03 BACTRIM DS 800-160 MG ORAL TABLET 653140 TRIMETHOPRIM-SULFAMETHOXAZOLE Inactive DIFLUCAN 150 MG ORAL TABLET 1 tablet by mouth if neede d, hold until symptoms start DIFLUCAN 150 MG ORAL TABLET 19760325 FLUCONAZ OLE Inactive IBUPROFEN 800 MG ORAL TABLET 1 tab every 8 hours with food 03/20 IBUPROFEN 800 MG ORAL TABLET IBUPROFEN Gray ctive HYDROCODONE-ACETAMINOPHEN 5-325 MG ORAL TABLET 1 tab b y mouth every 6 hours as needed HYDROCODONE-ACETAMINOPHEN 5-325 MG ORAL TABLET 641494 HYDROCODONE-ACETAMINOPHEN Inactive BACTROBAN 2 % EXTERNAL CREAM Apply to affected area BID for up to 10 days BACTROBAN 2 % EXTERNAL CREAM 416841 MUPIROCIN CA LCIUM Inactive MAGNESIUM CITRATE 1.745 GM/30ML ORAL SOLUTION 150ml po BID P RN Constipation MAGNESIUM CITRATE 1.745 GM/30ML ORAL SOLUTION 10 60960 MAGNESIUM CITRATE Inactive DIFLUCAN 150 MG ORAL TABLET 1 tablet by mouth qod 2015 DIFLUCAN 150 MG ORAL TABLET 997957 FLUCONAZOLE Inactive BACTRIM DS 800-160 MG ORAL TABLET 1 tab by mouth twice daily 201 12/19/26 BACTRIM DS 800-160 MG ORAL TABLET 916975 TRIMETHOPRIM-SULFAMETHOXAZOLE Inactive CLARITIN 10 MG ORAL TABLET 1 tablet by mouth daily as needed for allergies CLARITIN 10 MG ORAL TABLET 227399 LORATADINE I nactive FLUTICASONE PROPIONATE 50 MCG/ACT NASAL SUSPENSION 2 s prays/nostril qd PRN Congestion/Allergies FLUTICASONE PROPION ATE 50 MCG/ACT NASAL SUSPENSION 3515866 FLUTICASONE PROPIONATE Inactive MIRALAX ORAL POWDER 8.5 to 17g po qd PRN Constipation MIRALAX ORAL POWDER 161136 POLYETHYLENE GLYCOL 3350 Inactive CIPRO 500 MG ORAL TABLET 1 tablet by mouth twice daily CIPRO 500 MG ORAL TABLET 601888 CIPROFLOXACIN HCL Inactive FLUCONAZOLE 150 MG ORAL TABLET take 1 tab po qday once FLUCONAZOLE 150 MG ORAL TABLET 378707 FLUCONAZOLE Inactive ZITHROMAX Z-KARTHIK 250 MG ORAL TABLET 2 today, then 1 daily for 4 d ays ZITHROMAX Z-KARTHIK 250 MG ORAL TABLET 599182 AZITHROMYCIN Inactive PREDNISONE 20 MG ORAL TABLET 2 tabs daily for 3 days, 1 tab daily for 3 days, 1/2 tab daily for 2 days PREDNISONE 20 MG ORAL T ABLET 627078 PREDNISONE Inactive AZITHROMYCIN 250 MG ORAL TABLET 2 po qd x 1 day, then 1 po q d x 4 days AZITHROMYCIN 250 MG ORAL TABLET 233148 AZITHROMY SPARKLE Inactive PREDNISONE 20 MG ORAL TABLET 2 tabs daily for 3 days, 1 tab daily for 3 days, 1/2 tab daily for 2 days PREDNISONE 20 MG ORAL TABLET 428041 PREDNISONE Inactive CEFDINIR 300 MG ORAL CAPSULE by mouth twice a day 2013 CEFDINIR 300 MG ORAL CAPSULE 229550 CEFDINIR Inactive TRIAMCINOLONE ACETONIDE 0.1 % EXTERNAL OINTMENT Apply to affected areas TID for up to 2 weeks TRIAMCINOLONE ACETON ZACH 0.1 % EXTERNAL OINTMENT 5721237 TRIAMCINOLONE ACETONIDE Inactive PREDNISONE 20 MG ORAL TABLET 2 tabs daily for 3 days, 1 tab daily for 3 days, 1/2 tab daily for 2 days PREDNISONE 20 MG ORAL T ABLET 686940 PREDNISONE Inactive BACTRIM DS 800-160 MG ORAL TABLET 1 po BID x 7 days 29/04/10 BACTRIM DS 800-160 MG ORAL TABLET 139583 SULFAMETHOXAZOLE-TRIMETHOP RIM Inactive CIPRO 500 MG ORAL TABLET 1 tablet by mouth twice daily CIPRO 500 MG ORAL TABLET 045977 CIPROFLOXACIN HCL Inactive AZITHROMYCIN 250 MG ORAL TABLET 2 po qd x 1 day, then 1 po q d x 4 days AZITHROMYCIN 250 MG ORAL TABLET 257631 AZITHROMY SPARKLE Inactive FLAGYL 500 MG ORAL TABLET 1 tablet by mouth bid 04/13 FLAGYL 500 MG ORAL TABLET 114251 METRONIDAZOLE Inactive AZITHROMYCIN 250 MG ORAL TABLET 2 po qd x 1 day, then 1 po q d x 4 days AZITHROMYCIN 250 MG ORAL TABLET 635585 AZITHROMY SPARKLE Inactive AMOXICILLIN 500 MG ORAL CAPSULE 2 po BID x 10 days 201 01/15/27 AMOXICILLIN 500 MG ORAL CAPSULE 038643 AMOXICILLIN Inactive AMOXICILLIN 500 MG ORAL CAPSULE 2 po BID x 14 days for H. Pylori AMOXICILLIN 500 MG ORAL CAPSULE 005933 AMOXICILLIN Inactive CLARITHROMYCIN 500 MG ORAL TABLET 1 tab po BID x 14 days CLARITHROMYCIN 500 MG ORAL TABLET 419865 CLARITHROMYCIN Inacti ve FLAGYL 500 MG ORAL TABLET 1 tablet by mouth bid 08/29 FLAGYL 500 MG ORAL TABLET 513254 METRONIDAZOLE Inactive PROTONIX 40 MG ORAL TABLET DELAYED RELEASE 1 pill by m outh daily, for acid reflux PROTONIX 40 MG ORAL TABLET DELAYED RELEAS E 711805 PANTOPRAZOLE SODIUM Inactive Immunizations Vaccine Administration Date [...] ... - Chemistry sodium, serum 139 mmol/L 951-395 5729/11/28 carbon dioxide, venous blood 26.0 mmol/L 21.0-32 [...] 5.0-8.5 Encounters Code Encounter Date Provider Facility CPT-09060 Level 4 Est. Patient 08:57:51 RECOVERY OPERATOR HELPER Checo Conklin MD [facility] CPT-29352 Level 3 Est. Patient 11:24:55 RECOVERY OPERATOR HELPER Efren almendarez [facility] CPT-97171 Level 3 Est. Patient 13:05:44 CDT Paul Hamlin MD [facility] CPT-81398 Level 3 Est. Patient 11:29:55 CDT Checo Conklin MD [facility] CPT-69962 Level 4 Est. Patient 11:08:12 RECOVERY OPERATOR HELPER Checo Conklin MD [facility] CPT-30485 Level 4 Est. Patient 16:06:48 RECOVERY OPERATOR HELPER Checo Conklin MD [facility] CPT-08918 Level 3 Est. Patient 09:11:49 CDT Efren almendarez [facility] CPT-57565 Level 2 Est. Patient 19:53:27 CDT Tanner hill MD [facility] CPT-37032 Level 3 Est. Patient 09:15:34 CDT Efren almendarez [facility] CPT-30973 Level 3 Est. Patient 11:28:51 RECOVERY OPERATOR HELPER Efren almendarez [facility] CPT-69168 Level 4 Est. Patient 13:55:46 RECOVERY OPERATOR HELPER Checo Conklin MD [facility] CPT-48532 Level 4 Est. Patient 17:10:53 CDT Checo Conklin MD [facility] CPT-02229 Level 3 Est. Patient 15:56:22 CDT Checo Conklin MD [facility] CPT-58881 Level 3 Est. Patient 15:29:07 CDT Checo Conklin MD [facility] CPT-23667 Level 3 Est. Patient 14:38:41 CDT Checo Conklin MD [facility] CPT-99256 Level 3 Est. Patient 15:22:03 RECOVERY OPERATOR HELPER Thomas reynolds DO [facility] CPT-37034 Level 3 Est. Patient 13:34:17 RECOVERY OPERATOR HELPER Cheoc Conklin MD [facility] CPT-33303 Level 3 Est. Patient 12:29:32 CDT Dnagelo arroyo MD [facility] CPT-50701 Level 3 Est. Patient 16:53:02 CDT Checo Conklin MD [facility] CPT-96189 Level 3 Est. Patient 16:37:13 CDT Checo Conklin MD [facility] CPT-79685 Level 3 Est. Patient 16:16:59 CDT Paul Hamlin MD [facility] CPT-61189 Level 3 Est. Patient 14:20:13 CDT Dangelo arroyo MD [facility] CPT-62277 Level 4 Est. Patient 11:29:33 CDT Checo Conklin MD [facility] CPT-08707 Level 3 Est. Patient 17:08:31 CDT Checo Conklin MD [facility] CPT-52817 Level 3 Est. Patient 16:50:42 RECOVERY OPERATOR HELPER Checo Conklin MD [facility] CPT-83371 Level 4 Est. Patient 09:26:08 RECOVERY OPERATOR HELPER Checo Conklin MD [facility] CPT-74631 Level 3 Est. Patient 11:37:10 CDT Checo Conklin MD [facility] CPT-91988 Level 4 Est. Patient 14:07:38 CDT Checo Conklin MD [facility] CPT-33528 Level 3 Est. Patient 09:54:41 CDT Checo Conklin MD [facility] CPT-72596 Level 3 Est. Patient 11:10:54 CDT Paul Hamlin MD [facility] CPT-54746 Level 3 Est. Patient 14:16:56 RECOVERY OPERATOR HELPER Checo Conklin MD [facility] CPT-05335 Level 3 Est. Patient 11:04:11 RECOVERY OPERATOR HELPER Checo Conklin MD [facility] CPT-47228 Level 3 Est. Patient 17:09:26 CDT Dangelo arroyo MD [facility] CPT-43527 Level 3 Est. Patient 16:54:37 CDT Checo Conklin MD [facility] Procedures Code Procedure Name Date Entry Date Standard Desc ription CPT-58962 Abd compl w upright - XRAY USE ONLY 1 1:36:54 RECOVERY OPERATOR HELPER CPT-71281 UA w micro - LAB USE ONLY 17:06:46 CDT 2015 CPT-21280 BHCG Qual - LAB USE ONLY 17:06:46 CDT 05/06 CPT-68023 CMP - LAB USE ONLY 17:06:46 CDT CPT-27938 CBC with Diff - LAB USE ONLY 17:06:45 CDT 2 CPT-50808 Venipuncture Draw Fee 17:06:45 CDT CPT-LR Lesion Removal 19:53:27 CDT CPT-OV Office Visit 11:31:28 CDT CPT-58532 Tubersol 09:39:29 CDT CPT-J2550 Phenergan 25 mg (Promethazine) 13:59:02 RECOVERY OPERATOR HELPER CPT-J1885 Toradol 60 mg (Ketorolac) 13:59:02 RECOVERY OPERATOR HELPER 2012
--- OUTSIDE RECORDS SUMMARY | 2019-09-29 01:28 | XMS REPORT | Clinical Summary ---
Author Author Admin, Bethany Ayala [facility] Address Unknown Phone Unavailable Allergies, Adverse Reactions, [...] Other symptoms involving nervous and musculoskeletal systems DIABETES ICD-V18.0 Inactive Checo Conklin MD 201 08/27/26 CONCUSSION ICD-850.9 Inactive Checo Joshua UTI ICD-599.0 Inactive Checo Conklin MD 2013 BREAST CANCER ICD-V16.3 Inactive Checo Joshua HEADACHE, TENSION ICD-307.81 Inactive Checo Conklin MD PHARYNGITIS ICD-462 Inactive Checo Conklin MD OTITIS MEDIA-RIGHT ICD-382.9 Inactive Checo Conklin MD ABDOMINAL PAIN RIGHT LOWER QUADRANT ICD-789.03 Inactive Checo Conklin MD Insomnia ICD-780.52 Inactive [...] richey MD Mastalgia ICD-611.71 Inactive Checo Joshua Pharyngitis ICD-462 Inactive Checo Conklin MD Cough [...] TABS 1.5 po qd PAROX ETINE HCL 15318974002 Active Checo Conklin MD Active FLUTICASONE PROPIONATE 50 MCG/ACT NASAL SUSP 2 sprays/ nostril qd PRN Congestion/Allergies FLUTICASONE PROPIONATE 1321509312 5 No Longer Active Checo Conklin MD Active AMOXICILLIN 500 MG ORAL CAPS 2 po BID x 10 days 09/12 AMOXICILLIN 23475121131 No Longer Active Checo Conklin MD Activ e MIRALAX ORAL POWD 8.5 to 17g po qd PRN Constipation POLYETHYLENE GLYCOL 3350 71211438071 Active Checo Conklin MD Active CLARITIN 10 MG TAB 1 tablet by mouth daily as needed for allergi es LORATADINE 58588736665 No Longer Active Checo Conklin MD Active BACTRIM DS 800-160 MG TAB 1 tab by mouth twice daily 2 TRIMETHOPRIM-SULFAMETHOXAZOLE 56462742182 No Longer Active Tanner Carrillo MD Active DIFLUCAN 150 MG TAB 1 tablet by mouth qod FLUCO NAZOLE 38220757042 No Longer Active Efren Medel APRN Active AZITHROMYCIN 250 MG TABS 2 po qd x 1 day, then 1 po qd x 4 days AZITHROMYCIN 56301738285 No Longer Active Jillina Frajoel INSTRUMENT AND ELECTRICAL TECHNICIAN Active FLAGYL 500 MG TAB 1 tablet by mouth bid METRONI DAZOLE 18255457714 No Longer Active Checo Conklin MD Active FOCALIN XR 10 MG ORAL [id number] 1 po q a.m. DEX METHYLPHENIDATE HCL 18112892490 Active Checo Conklin MD Active MAGNESIUM CITRATE 1.745 GM/30ML ORAL SOLN 150ml po BID PRN C onstipation MAGNESIUM CITRATE 82358046761 No Longer Active Checo Conklin MD Active BACTROBAN 2 % CREAM Apply to affected area BID for up to 10 days MUPIROCIN CALCIUM 65169739467 No Longer Active Checo Conklin MD Active HYDROCODONE-ACETAMINOPHEN 5-325 MG TABS 1 tab by mouth every 6 hours as needed HYDROCODONE-ACETAMINOPHEN 59924746688 No Longer Activ e Checo Conklin MD Active IBUPROFEN 800 MG TABS 1 tab every 8 hours with food 20 31/03/21 IBUPROFEN 11640064232 No Longer Active Checo Conklin MD Activ e DIFLUCAN 150 MG TAB 1 tablet by mouth if needed, hold until symptoms start FLUCONAZOLE 89936573311 No Longer Active Checo Ortiz MD Active BACTRIM DS 800-160 MG TAB 1 tab by mouth twice daily 2 TRIMETHOPRIM-SULFAMETHOXAZOLE 59604638205 No Longer Active Corry leong LPN Active HYDROCODONE-ACETAMINOPHEN 5-325 MG TABS 0.5 to 1 tab b y mouth every 6 hours as needed HYDROCODONE-ACETAMINOPHEN 03880220656 No Longer Active Checo Conklin MD Active ONDANSETRON [address] one tablet on tongue and allow to dissolve every 6 hours as needed for vomitting ONDANSETRO N 24427939657 No Longer Active Checo Conklin MD Active COMPRO 25 MG RECTAL SUPP insert or apply one supposit ory rectally as directed every 12 hours as needed for nausea PROCHLORPERA ZINE 76739380056 No Longer Active Checo Conklin MD Active SUMATRIPTAN SUCCINATE 100 MG ORAL TABS Take one PRN for migrane SUMATRIPTAN SUCCINATE 09571511040 No Longer Active Checo Conklin MD Active TRAVEL SICKNESS 25 MG ORAL CHEW chew and swallow one t ablet every 6 hours as needed MECLIZINE HCL 37660124202 No Longer Active Joe Conklin MD Active BUPROPION HCL ER (SR) 100 MG ORAL [id number] take one t ablet by mouth one time daily for one week then take 1 two times daily BUPROPION HCL 64383150031 No Longer Active Checo Conklin MD Activ e TERBINAFINE HCL 250 MG ORAL TABS take one table PO one time abran y TERBINAFINE HCL 36920599048 No Longer Active Checo Conklin MD Active METOCLOPRAMIDE HCL 10 MG ORAL TABS take one PO tid PRN nausea 20 29/12/14 METOCLOPRAMIDE HCL 92726942034 No Longer Active Checo Conklin MD Active DICLOFENAC SODIUM 75 MG TBEC 1 tablet by mouth twice daily P RN Knee pain DICLOFENAC SODIUM 29276842641 No Longer Active Checo Conklin MD Active LAMISIL 250 MG TAB 1 po qd TERBINAFINE HCL 548 08192266 No Longer Active Checo Conklin MD Active REGLAN 10 MG TAB 1 po TID PRN Nausea METOCLOPRA MIDE HCL 94961637639 No Longer Active Checo Conklin MD Active CELEXA 20 MG TABS 1 tablet by mouth daily CITALOPRAM HYDROBROMIDE 26984120992 No Longer Active Checo Conklin MD Activ e AZITHROMYCIN 250 MG TABS 2 po qd x 1 day, then 1 po qd x 4 days AZITHROMYCIN 99219032195 No Longer Active Checo Conklin MD Active HYDROCODONE-ACETAMINOPHEN 5-325 MG TABS 1 po q 6hr PRN Pain 2013 HYDROCODONE-ACETAMINOPHEN 42142034219 No Longer Active Lenora Conklin MD Active PHENAZOPYRIDINE HCL 200 MG TABS take 1 tab po TID for bladder pa in PHENAZOPYRIDINE HCL 42416188866 No Longer Active Checo Joshua Active CIPRO 500 MG TAB 1 tablet by mouth twice daily CIPROFLOXACIN HCL 42340068201 No Longer Active Dangelo Rangel MD Active HYDROCODONE-ACETAMINOPHEN 5-325 MG TABS 1/2 to 1 po q 4 hour s prn cough HYDROCODONE-ACETAMINOPHEN 22225538913 No Longer Activ e Dangelo Rangel MD Active BACTRIM DS 800-160 MG TABS 1 po BID x 7 days 0 SULFAMETHOXAZOLE-TRIMETHOPRIM 75808116609 No Longer Active Checo Conklin MD Active PREDNISONE 20 MG TAB 2 tabs daily for 3 days, 1 t ab daily for 3 days, 1/2 tab daily for 2 days PREDNISONE 04215211896 No Longer Active Checo Conklin MD Active TRIAMCINOLONE ACETONIDE 0.1 % OINT Apply to affected a reas TID for up to 2 weeks TRIAMCINOLONE ACETONIDE 84762834925 No Longer A ctive Checo Conklin MD Active CEFDINIR 300 MG CAPS by mouth twice a day CEFDI JAZZY 00190334490 No Longer Active Dangelo Rangel MD Active BUPROPION HCL (SMOKING DETER) 150 MG [id number] 1 a day for 1 week then 1 twice a day BUPROPION HCL (SMOKING DETER) 61292762288 No Lo nger Active Checo Conklin MD Active SIMVASTATIN 20 MG TABS 1 po qd SIMVASTATIN 0133929609 5 Active Checo Conklin MD Active CHANTIX STARTING MONTH KARTHIK 0.5 MG X 11 & 1 MG X 42 TAB S 0.5mg daily for 3 days, then 0.5mg BID for 4 days, then 1mg BID VARENICLINE TARTRATE 77403358669 No Longer Active Checo Conklin MD Activ e XANAX 0.5 MG TABS 1 po BID PRN anxiety ALPRAZOLAM 16268359109 Active Checo Conklin MD Active CONCERTA 18 MG CR-TABS 1 po q a.m. METHYLPHENID ATE HCL 42837733455 No Longer Active Checo Conklin MD Active AMBIEN 5 MG TAB 1 po qHS PRN Insomnia ZOLPIDEM TARTRATE 96016810159 Active Checo Conklin MD Active TRAZODONE HCL 100 MG TAB 0.5 to 1 po qHS PRN Insomnia TRAZODONE HCL 79290455390 No Longer Active Checo Conklin MD Acti ve FIORICET 325-50-40 MG TAB 1 tablet by mouth four times daily as needed [id number] 69105030914 No Longer Active Checo Conklin MD Active PHENERGAN CREAM* 25mg applied to wrist q6hr PRN Nausea PHENERGAN CREAM* No Longer Active Checo Conklin MD A ctive FLONASE 50 MCG/ACT SUSP 1 spray each nostril am and hs FLUTICASONE PROPIONATE 49400610399 No Longer Active Checo Conklin MD Activ e ANTIPYRINE-BENZOCAINE 5.4-1.4 % SOLN 1-2 drops in affected ear BENZOCAINE-ANTIPYRINE 05717191712 No Longer Active Checo Conklin MD Active CEFDINIR 300 MG CAPS 1 po bid CEFDINIR 33312941 120 No Longer Active Checo Conklin MD Active PREDNISONE 20 MG TAB 2 tabs daily for 3 days, 1 t ab daily for 3 days, 1/2 tab daily for 2 days PREDNISONE 23865177913 No Longer Active Aracelis Conklin MD Active AZITHROMYCIN 250 MG TABS 2 po qd x 1 day, then 1 po qd x 4 days AZITHROMYCIN 08400443657 No Longer Active Checo Conklin MD Active PREDNISONE 20 MG TAB 2 tabs daily for 3 days, 1 t ab daily for 3 days, 1/2 tab daily for 2 days PREDNISONE 15339608169 No Longer Active Checo Conklin MD Active ZITHROMAX Z-KARTHIK 250 MG TABS 2 today, then 1 daily for 4 days 201 09/18/28 AZITHROMYCIN 15720557869 No Longer Active Paul Hamlin MD Active FOCALIN XR 10 MG [id number] 1 po q a.m. D EXMETHYLPHENIDATE HCL 58316867416 No Longer Active Paul Hamlin MD Activ e PERCOCET 10-325 MG TABS 1 tablet every 6 hours as needed for pain OXYCODONE-ACETAMINOPHEN 04113809292 No Longer Active Paul Hamlin MD Active LORTAB 5 5-500 MG TABS 1/2 to 1 tablet by mouth flaquito ry 4 hours as needed for pain HYDROCODONE-ACETAMINOPHEN 80767228177 No Longer Active Checo Conklin MD Active FOCALIN XR 15 MG [id number] 1 po q a.m. D EXMETHYLPHENIDATE HCL 36295008739 No Longer Active Checo Conklin MD Activ e ZOFRAN ODT 4 MG TBDP 1 po q6hr PRN Nausea ONDAN SETRON 36591917217 No Longer Active Checo Conklin MD Active PERCOCET 5-325 MG TABS 1 tablet by mouth every 6 hours as needed OXYCODONE-ACETAMINOPHEN 42432185018 No Longer Active Checo Conklin MD Active PYRIDIUM 200 MG TABS take 1 tab po TID prn urinary pain. 0 PHENAZOPYRIDINE HCL 84006574747 No Longer Active Checo Conklin MD Active FLUCONAZOLE 150 MG TABS take 1 tab po qday once 04/06 FLUCONAZOLE 49896384410 No Longer Active Dangelo Rangel MD Acti ve CIPRO 500 MG TAB 1 tablet by mouth twice daily CIPROFLOXACIN HCL 21511640430 No Longer Active Dangelo Rangel MD Active PYRIDIUM 200 MG TABS take 1 tab po TID prn urinary pain. 0 PYRIDIUM 200 MG TABS 4553980 PHENAZOPYRIDINE HCL Inactive PERCOCET 5-325 MG TABS 1 tablet by mouth every 6 hours as needed PERCOCET 5-325 MG TABS 9842245 OXYCODONE-ACETAMINOPHEN I nactive ZOFRAN ODT 4 MG TBDP 1 po q6hr PRN Nausea ZOFRAN ODT 4 MG TBDP 965201 ONDANSETRON Inactive FOCALIN XR 15 MG [id number] 1 po q a.m. F OCALIN XR 15 MG [id number] DEXMETHYLPHENIDATE HCL Inactive LORTAB 5 5-500 MG TABS 1/2 to 1 tablet by mouth flaquito ry 4 hours as needed for pain LORTAB 5 5-500 MG TABS HYDROCODONE-A CETAMINOPHEN Inactive PERCOCET 10-325 MG TABS 1 tablet every 6 hours as needed for pain PERCOCET 10-325 MG TABS 5671010 OXYCODONE-ACETAMINOPHEN Inactive FOCALIN XR 10 MG [id number] 1 po q a.m. F OCALIN XR 10 MG [id number]-JVP DEXMETHYLPHENIDATE HCL Inactive CEFDINIR 300 MG CAPS 1 po bid CEFDINIR 300 MG CAPS 20 0346 CEFDINIR Inactive ANTIPYRINE-BENZOCAINE 5.4-1.4 % SOLN 1-2 drops in affected ear ANTIPYRINE-BENZOCAINE 5.4-1.4 % SOLN BENZOCAINE-ANTIPYRINE I nactive FLONASE 50 MCG/ACT SUSP 1 spray each nostril am and hs FLONASE 50 MCG/ACT SUSP 8633349 FLUTICASONE PROPIONATE Inactive PHENERGAN CREAM* 25mg applied to wrist q6hr PRN Nausea PHENERGAN CREAM* Inactive FIORICET 325-50-40 MG TAB 1 tablet by mouth four times daily as needed FIORICET 325-50-40 MG TAB ACETAMINOPHEN-C AFF-BUTALBITAL Inactive TRAZODONE HCL 100 MG TAB 0.5 to 1 po qHS PRN Insomnia TRAZODONE HCL 100 MG TAB 016206 TRAZODONE HCL Inactive CONCERTA 18 MG CR-TABS [...] s prn cough HYDROCODONE-ACETAMINOPHEN 5-325 MG TABS 109630 HYDROCODONE-ACETAMINOPHEN Inactive PHENAZOPYRIDINE HCL 200 MG TABS take 1 tab po TID for bladder pa in PHENAZOPYRIDINE HCL 200 MG TABS 8206192 PHENAZOPYRIDINE HCL Inactive HYDROCODONE-ACETAMINOPHEN 5-325 MG TABS 1 po q 6hr PRN Pain 2013 HYDROCODONE-ACETAMINOPHEN 5-325 MG TABS 578885 HYDROCODONE-ACETAMINOPHEN Inactive CELEXA 20 MG TABS 1 tablet by mouth daily CELEXA 20 MG TABS 731903 CITALOPRAM HYDROBROMIDE Inactive REGLAN 10 MG TAB 1 po TID PRN Nausea REGLAN 10 MG TAB 528855 METOCLOPRAMIDE HCL Inactive LAMISIL 250 MG TAB 1 po qd LAMISIL 250 MG TAB 403918 TERBINAFINE HCL Inactive DICLOFENAC SODIUM 75 MG TBEC 1 tablet by mouth twice daily P RN Knee pain DICLOFENAC SODIUM 75 MG TBEC 344259 DICLOFENAC S ODIUM Inactive METOCLOPRAMIDE HCL 10 MG ORAL TABS take one PO tid PRN nausea 20 29/12/14 METOCLOPRAMIDE HCL 10 MG ORAL TABS 944818 METOCLOPRAMID E HCL Inactive TERBINAFINE HCL 250 MG ORAL TABS take one table PO one time abran y TERBINAFINE HCL 250 MG ORAL TABS 611149 TERBINAFINE HCL Inactive BUPROPION HCL ER (SR) 100 MG ORAL [id number] take one t ablet by mouth one time daily for one week then take 1 two times daily BUPROPION HCL ER (SR) 100 MG ORAL [id number] BUPROPION HCL Inacti ve TRAVEL SICKNESS 25 MG ORAL CHEW chew and swallow one t ablet every 6 hours as needed TRAVEL SICKNESS 25 MG ORAL CHEW 992050 MECLIZINE HCL Inactive SUMATRIPTAN SUCCINATE 100 MG ORAL TABS Take one PRN for migrane SUMATRIPTAN SUCCINATE 100 MG ORAL TABS 625951 SUMATRIPT AN SUCCINATE Inactive COMPRO 25 MG RECTAL SUPP insert or apply one supposit ory rectally as directed every 12 hours as needed for nausea COMP RO 25 MG RECTAL SUPP 073387 PROCHLORPERAZINE Inactive ONDANSETRON [address] one tablet on tongue and allow to dissolve every 6 hours as needed for vomitting ON DANSETRON 8 MG ORAL TBDP 045121 ONDANSETRON Inactive HYDROCODONE-ACETAMINOPHEN 5-325 MG TABS 0.5 to 1 tab b y mouth every 6 hours as needed HYDROCODONE-ACETAMINOPHEN 5-325 MG TABS 8 68728 HYDROCODONE-ACETAMINOPHEN Inactive BACTRIM DS 800-160 MG TAB 1 tab by mouth twice daily 2 BACTRIM DS 800-160 MG TAB 041216 TRIMETHOPRIM-SULFAMETHOXAZOLE Inac tive DIFLUCAN 150 MG TAB 1 tablet by mouth if needed, hold until symptoms start DIFLUCAN 150 MG TAB 19760325 FLUCONAZOLE Inactive IBUPROFEN 800 MG TABS 1 tab every 8 hours with food 31/03/21 IBUPROFEN 800 MG TABS 796192 IBUPROFEN Inactive HYDROCODONE-ACETAMINOPHEN 5-325 MG TABS 1 tab by mouth every 6 hours as needed HYDROCODONE-ACETAMINOPHEN 5-325 MG TABS 861454 HYDROCODONE-ACETAMINOPHEN Inactive BACTROBAN 2 % CREAM Apply to affected area BID for up to 10 days BACTROBAN 2 % CREAM 675723 MUPIROCIN CALCIUM Inactive MAGNESIUM CITRATE 1.745 GM/30ML ORAL SOLN 150ml po BID PRN C onstipation MAGNESIUM CITRATE 1.745 GM/30ML ORAL SOLN 591239 0 MAGNESIUM CITRATE Inactive DIFLUCAN 150 MG TAB 1 tablet by mouth qod DIFLUCAN 150 MG TAB 709363 FLUCONAZOLE Inactive BACTRIM DS 800-160 MG TAB 1 tab by mouth twice daily 2 BACTRIM DS 800-160 MG TAB 19820918 TRIMETHOPRIM-SULFAMETHOXAZOLE Inac tive CLARITIN 10 MG TAB 1 tablet by mouth daily as needed for allergi es CLARITIN 10 MG TAB 216564 LORATADINE Inactive FLUTICASONE PROPIONATE 50 MCG/ACT NASAL SUSP 2 sprays/ nostril qd PRN Congestion/Allergies FLUTICASONE PROPION ATE 50 MCG/ACT NASAL SUSP 9675405 FLUTICASONE PROPIONATE Inactive CIPRO 500 MG TAB 1 tablet by mouth twice daily CIPRO 500 MG TAB 942317 CIPROFLOXACIN HCL Inactive FLUCONAZOLE 150 MG TABS take 1 tab po qday once 04/06 FLUCONAZOLE 150 MG TABS 898233 FLUCONAZOLE Inactive ZITHROMAX Z-KARTHIK 250 MG TABS 2 today, then 1 daily for 4 days 201 09/18/28 ZITHROMAX Z-KARTHIK 250 MG TABS 9188596 AZITHROMYCIN Inac tive PREDNISONE 20 MG TAB 2 tabs daily for 3 days, 1 t ab daily for 3 days, 1/2 tab daily for 2 days PREDNISONE 20 MG TAB 184829 PREDNISON E Inactive AZITHROMYCIN 250 MG TABS 2 po qd x 1 day, then 1 po qd x 4 days AZITHROMYCIN 250 MG TABS 2811976 AZITHROMYCIN Inactiv e PREDNISONE 20 MG TAB 2 tabs daily for 3 days, 1 t ab daily for 3 days, 1/2 tab daily for 2 days PREDNISONE 20 MG TAB 582683 PREDNISON E Inactive CEFDINIR 300 MG CAPS by mouth twice a day CEFDINIR 300 MG CAPS 059616 CEFDINIR Inactive TRIAMCINOLONE ACETONIDE 0.1 % OINT Apply to affected a reas TID for up to 2 weeks TRIAMCINOLONE ACETONIDE 0.1 % OINT 147561 6 TRIAMCINOLONE ACETONIDE Inactive PREDNISONE 20 MG TAB 2 tabs daily for 3 days, 1 t ab daily for 3 days, 1/2 tab daily for 2 days PREDNISONE 20 MG TAB 488593 PREDNISON E Inactive BACTRIM DS 800-160 MG TABS 1 po BID x 7 days 0 BACTRIM DS 800-160 MG TABS 907392 SULFAMETHOXAZOLE-TRIMETHOPRIM Inactive CIPRO 500 MG TAB 1 tablet by mouth twice daily CIPRO 500 MG TAB 900401 CIPROFLOXACIN HCL Inactive AZITHROMYCIN 250 MG TABS 2 po qd x 1 day, then 1 po qd x 4 days AZITHROMYCIN 250 MG TABS 9076943 AZITHROMYCIN Inactiv e FLAGYL 500 MG TAB 1 tablet by mouth bid FLAGYL 500 MG TAB 416953 METRONIDAZOLE Inactive AZITHROMYCIN 250 MG TABS 2 po qd x 1 day, then 1 po qd x 4 days AZITHROMYCIN 250 MG TABS 5886780 AZITHROMYCIN Inactiv e AMOXICILLIN 500 MG ORAL CAPS 2 po BID x 10 days 09/12 AMOXICILLIN 500 MG ORAL CAPS 277643 AMOXICILLIN Inactive Immunizations Vaccine Administration Date Value [...] Report: CBC W/DIFF, Comp. Met[place], [place] [facility] [place] sodium, serum 139 mmol/L 018-290 5071/10/21 carbon dioxide, venous blood 33.5 mmol/L 21.0-32 [...] Report: CBC W/DIFF, Comp. Metabolic Panel, [place] [facility] [place] H[place] leukocyte count, blood 7.9 [...] PANEL - Chemistry cholesterol, serum 192 mg/dL 405-848 4141/02/20 HDL cholesterol, serum 31 mg/dL > OR [...] 11 .0-15.0 platelet count 218 THOUSAND/UL 10*3/mm3 133-299 9609/02/20 mean platelet volume 9.7 fL 7.5-12.5 Lab Report: Chlamydia/GC [facility]/[id number] - Lab chlamydia DNA probe NOT DETECTED NOT DETECTED Lab Report: Chlamydia/[facility]/[id number] - Microbiology Neisseria gonorrhoeae DNA probe NOT [...] 5.0-8.5 Encounters Code Encounter Date Provider Facility CPT-83951 Level 3 Est. Patient 13:05:44 CDT Paul Hamlin MD [facility] CPT-43049 Level 3 Est. Patient 11:29:55 CDT Checo Conklin MD [facility] CPT-88537 Level 4 Est. Patient 11:08:12 SENIOR PROJECT ENGINEER Checo Conklin MD [facility] CPT-12302 Level 4 Est. Patient 16:06:48 SENIOR PROJECT ENGINEER Checo Conklin MD [facility] CPT-62403 Level 3 Est. Patient 09:11:49 CDT Efren almendarez [facility] CPT-48037 Level 2 Est. Patient 19:53:27 CDT Tanner hill MD [facility] CPT-94466 Level 3 Est. Patient 09:15:34 CDT Efren almendarez [facility] CPT-72964 Level 3 Est. Patient 11:28:51 SENIOR PROJECT ENGINEER Efren almendarez [facility] CPT-67768 Level 4 Est. Patient 13:55:46 SENIOR PROJECT ENGINEER Checo Conklin MD [facility] CPT-55915 Level 4 Est. Patient 17:10:53 CDT Checo Conklin MD [facility] CPT-75368 Level 3 Est. Patient 15:56:22 CDT Checo Conklin MD [facility] CPT-34958 Level 3 Est. Patient 15:29:07 CDT Checo Conklin MD [facility] CPT-14212 Level 3 Est. Patient 14:38:41 CDT Checo Conklin MD [facility] CPT-62820 Level 3 Est. Patient 15:22:03 SENIOR PROJECT ENGINEER Thomas reynolds DO [facility] CPT-20181 Level 3 Est. Patient 13:34:17 SENIOR PROJECT ENGINEER Checo Conklin MD [facility] CPT-45461 Level 3 Est. Patient 12:29:32 CDT Dangelo arroyo MD [facility] CPT-93657 Level 3 Est. Patient 16:53:02 CDT Checo Conklin MD [facility] CPT-85443 Level 3 Est. Patient 16:37:13 CDT Checo Conklin MD [facility] CPT-65083 Level 3 Est. Patient 16:16:59 CDT Paul Hamlin MD [facility] CPT-41042 Level 3 Est. Patient 14:20:13 CDT Dangelo arroyo MD [facility] CPT-31666 Level 4 Est. Patient 11:29:33 CDT Checo Conklin MD [facility] CPT-01744 Level 3 Est. Patient 17:08:31 CDT Checo Conklin MD [facility] CPT-74365 Level 3 Est. Patient 16:50:42 SENIOR PROJECT ENGINEER Checo Conklin MD [facility] CPT-47554 Level 4 Est. Patient 09:26:08 SENIOR PROJECT ENGINEER Checo Conklin MD [facility]-46951 Level 3 Est. Patient 11:37:10 CDT Checo Conklin MD [facility] CPT-43367 Level 4 Est. Patient 14:07:38 CDT Checo Conklin MD [facility] CPT-07467 Level 3 Est. Patient 09:54:41 CDT Checo Conklin MD [facility] CPT-71507 Level 3 Est. Patient 11:10:54 CDT Paul Hamlin MD [facility] CPT-15888 Level 3 Est. Patient 14:16:56 SENIOR PROJECT ENGINEER Checo Conklin MD [facility] CPT-36240 Level 3 Est. Patient 11:04:11 SENIOR PROJECT ENGINEER Checo Conklin MD [facility] CPT-63482 Level 3 Est. Patient 17:09:26 CDT Dangelo arroyo MD [facility] CPT-55206 Level 3 Est. Patient 16:54:37 CDT Checo Conklin MD [facility] Procedures Code Procedure Name Date Entry Date Standard Desc ription CPT-01426 UA w micro - LAB USE ONLY 17:06:46 CDT 2015 CPT-01185 [facility] Qual - LAB USE ONLY 17:06:46 CDT 05/06 CPT-17870 CMP - LAB USE ONLY 17:06:46 CDT CPT-37970 CBC with Diff - LAB USE ONLY 17:06:45 CDT 2 CPT-26397 Venipuncture Draw Fee 17:06:45 CDT CPT-LR Lesion Removal 19:53:27 CDT CPT-OV Office Visit 11:31:28 CDT CPT-83190 Tubersol 09:39:29 CDT CPT-J2550 Phenergan 25 mg (Promethazine) 13:59:02 SENIOR PROJECT ENGINEER CPT-J1885 Toradol 60 mg (Ketorolac) 13:59:02 SENIOR PROJECT ENGINEER 2012
--- OUTSIDE RECORDS SUMMARY | 2019-09-29 01:29 | XMS REPORT | Clinical Summary ---
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 Tanner Carrillo MD Neoplasm of uncertain behavior of skin Abdominal pain, generalized 789.07 Active Jillina Frazell [employer] Abdominal pain, generalized Urinary frequency 788.41 Active Jillina Frazell [employer] Urinary frequency DIABETES ICD-V18.0 Inactive Checo Conklin MD 201 08/27/26 CONCUSSION ICD-850.9 Inactive Checo Joshua FH BREAST CANCER ICD-V16.3 Inactive Checo Joshua ABDOMINAL PAIN RIGHT LOWER QUADRANT ICD-789.03 Inactive Checo Conklin MD HEADACHE, TENSION ICD-307.81 Inactive Checo Conklin MD UTI ICD-599.0 Inactive Checo Conklin MD 2013 OTITIS MEDIA-RIGHT ICD-382.9 Inactive Checo Conklin MD Hypoglycemia, unspecified ICD-251.2 [...] tab by mouth twice daily 2 TRIMETHOPRIM-SULFAMETHOXAZOLE 71375020005 No Longer Active Tanner Carrillo MD Active DIFLUCAN 150 MG TAB 1 tablet by mouth qod FLUCO NAZOLE 50479655148 No Longer Active Efren Medel APRN Active CLARITIN 10 MG TAB 1 tablet by mouth daily as needed for allergies LORATADINE 10910396037 Active Jillina Frazell [employer] Active AZITHROMYCIN 250 MG TABS 2 po qd x 1 day, then 1 po qd x 4 days AZITHROMYCIN 21490821558 No Longer Active Jillina Lizy MAX Active FLAGYL 500 MG TAB 1 tablet by mouth bid METRONI DAZOLE 40288894333 No Longer Active Checo Conklin MD Active FOCALIN XR 10 MG ORAL [id number] 1 po q a.m. DEX METHYLPHENIDATE HCL 93430955063 Active Checo Conklin MD Active MAGNESIUM CITRATE 1.745 GM/30ML ORAL SOLN 150ml po BID PRN C onstipation MAGNESIUM CITRATE 44581734313 No Longer Active Checo Conklin MD Active BACTROBAN 2 % CREAM Apply to affected area BID for up to 10 days MUPIROCIN CALCIUM 76180852055 No Longer Active Checo Conklin MD Active HYDROCODONE-ACETAMINOPHEN 5-325 MG TABS 1 tab by mouth every 6 hours as needed HYDROCODONE-ACETAMINOPHEN 01181384598 No Longer Activ e Checo Conklin MD Active IBUPROFEN 800 MG TABS 1 tab every 8 hours with food 31/03/21 IBUPROFEN 82061303197 No Longer Active Checo Conklin MD Activ e DIFLUCAN 150 MG TAB 1 tablet by mouth if needed, hold until symptoms start FLUCONAZOLE 02772417397 No Longer Active Checo Ortiz MD Active BACTRIM DS 800-160 MG TAB 1 tab by mouth twice daily 2 TRIMETHOPRIM-SULFAMETHOXAZOLE 82104564033 No Longer Active Corry leong LPN Active MIRALAX PACK 1 po qd PRN Constipation POLYETHYL JOEL GLYCOL 3350 60331500378 Active Checo Conklin MD Active HYDROCODONE-ACETAMINOPHEN 5-325 MG TABS 0.5 to 1 tab b y mouth every 6 hours as needed HYDROCODONE-ACETAMINOPHEN 72635153648 No Longer Active Checo Conklin MD Active ONDANSETRON [address] one tablet on tongue and allow to dissolve every 6 hours as needed for vomitting ONDANSETRO N 10976155698 No Longer Active Checo Conklin MD Active COMPRO 25 MG RECTAL SUPP insert or apply one supposit ory rectally as directed every 12 hours as needed for nausea PROCHLORPERA ZINE 78001223644 No Longer Active Checo Conklin MD Active SUMATRIPTAN SUCCINATE 100 MG ORAL TABS Take one PRN for migrane SUMATRIPTAN SUCCINATE 26140030731 No Longer Active Checo Conklin MD Active TRAVEL SICKNESS 25 MG ORAL CHEW chew and swallow one t ablet every 6 hours as needed MECLIZINE HCL 43410047318 No Longer Active Joe Conklin MD Active BUPROPION HCL ER (SR) 100 MG ORAL [id number] take one t ablet by mouth one time daily for one week then take 1 two times daily BUPROPION HCL 32666201638 No Longer Active Checo Conklin MD Activ e TERBINAFINE HCL 250 MG ORAL TABS take one table PO one time abran y TERBINAFINE HCL 76201834547 No Longer Active Checo Conklin MD Active METOCLOPRAMIDE HCL 10 MG ORAL TABS take one PO tid PRN nausea 20 29/12/14 METOCLOPRAMIDE HCL 50165589145 No Longer Active Checo Conklin MD Active DICLOFENAC SODIUM 75 MG TBEC 1 tablet by mouth twice daily P RN Knee pain DICLOFENAC SODIUM 31307340166 No Longer Active Checo Conklin MD Active LAMISIL 250 MG TAB 1 po qd TERBINAFINE HCL 548 79555950 No Longer Active Checo Conklin MD Active REGLAN 10 MG TAB 1 po TID PRN Nausea METOCLOPRA MIDE HCL 74959181851 No Longer Active Checo Conklin MD Active CELEXA 20 MG TABS 1 tablet by mouth daily CITALOPRAM HYDROBROMIDE 36900369921 No Longer Active Checo Conklin MD Activ e AZITHROMYCIN 250 MG TABS 2 po qd x 1 day, then 1 po qd x 4 days AZITHROMYCIN 19772569282 No Longer Active Checo Conklin MD Active HYDROCODONE-ACETAMINOPHEN 5-325 MG TABS 1 po q 6hr PRN Pain 2013 HYDROCODONE-ACETAMINOPHEN 56015718157 No Longer Active Lenora Conklin MD Active PHENAZOPYRIDINE HCL 200 MG TABS take 1 tab po TID for bladder pa in PHENAZOPYRIDINE HCL 76713711772 No Longer Active Checo Joshua Active CIPRO 500 MG TAB 1 tablet by mouth twice daily CIPROFLOXACIN HCL 90378585101 No Longer Active Dangelo Rangel MD Active HYDROCODONE-ACETAMINOPHEN 5-325 MG TABS 1/2 to 1 po q 4 hour s prn cough HYDROCODONE-ACETAMINOPHEN 88954974245 No Longer Activ e Dangelo Rangel MD Active BACTRIM DS 800-160 MG TABS 1 po BID x 7 days 0 SULFAMETHOXAZOLE-TRIMETHOPRIM 45595832511 No Longer Active Checo Conklin MD Active PREDNISONE 20 MG TAB 2 tabs daily for 3 days, 1 t ab daily for 3 days, 1/2 tab daily for 2 days PREDNISONE 26718397620 No Longer Active Checo Conklin MD Active TRIAMCINOLONE ACETONIDE 0.1 % OINT Apply to affected a reas TID for up to 2 weeks TRIAMCINOLONE ACETONIDE 67723932066 No Longer A ctive Checo Conklin MD Active CEFDINIR 300 MG CAPS by mouth twice a day CEFDI JAZZY 49634400971 No Longer Active Dangelo Rangel MD Active BUPROPION HCL (SMOKING DETER) 150 MG [id number] 1 a day for 1 week then 1 twice a day BUPROPION HCL (SMOKING DETER) 19245169321 No Lo nger Active Checo Conklin MD Active SIMVASTATIN 20 MG TABS 1 po qd SIMVASTATIN 1913976526 5 Active Checo Conklin MD Active CHANTIX STARTING MONTH KARTHIK 0.5 MG X 11 & 1 MG X 42 TAB S 0.5mg daily for 3 days, then 0.5mg BID for 4 days, then 1mg BID VARENICLINE TARTRATE 09728988628 No Longer Active Checo Conklin MD Activ e XANAX 0.5 MG TABS 1 po BID PRN anxiety ALPRAZOLAM 99114238174 Active Checo Conklin MD Active CONCERTA 18 MG CR-TABS 1 po q a.m. METHYLPHENID ATE HCL 68984690827 No Longer Active Checo Conklin MD Active AMBIEN 5 MG TAB 1 po qHS PRN Insomnia ZOLPIDEM TARTRATE 10960047571 Active Checo Conklin MD Active TRAZODONE HCL 100 MG TAB 0.5 to 1 po qHS PRN Insomnia TRAZODONE HCL 08439420974 No Longer Active Checo Conklin MD Acti ve FIORICET 325-50-40 MG TAB 1 tablet by mouth four times daily as needed [id number] 21092321854 No Longer Active Checo Conklin MD Active PHENERGAN CREAM* 25mg applied to wrist q6hr PRN Nausea PHENERGAN CREAM* No Longer Active Checo Conklin MD A ctive FLONASE 50 MCG/ACT SUSP 1 spray each nostril am and hs FLUTICASONE PROPIONATE 62344091102 No Longer Active Checo Simms e ANTIPYRINE-BENZOCAINE 5.4-1.4 % SOLN 1-2 drops in affected ear BENZOCAINE-ANTIPYRINE 81237770718 No Longer Active Checo Conklin MD Active CEFDINIR 300 MG CAPS 1 po bid CEFDINIR 56836362 120 No Longer Active Checo Conklin MD Active PREDNISONE 20 MG TAB 2 tabs daily for 3 days, 1 t ab daily for 3 days, 1/2 tab daily for 2 days PREDNISONE 76329261598 No Longer Active Aracelis Conklin MD Active AZITHROMYCIN 250 MG TABS 2 po qd x 1 day, then 1 po qd x 4 days AZITHROMYCIN 95223282110 No Longer Active Checo Conklin MD Active PREDNISONE 20 MG TAB 2 tabs daily for 3 days, 1 t ab daily for 3 days, 1/2 tab daily for 2 days PREDNISONE 10137383594 No Longer Active Checo Conklin MD Active ZITHROMAX Z-KARTHIK 250 MG TABS 2 today, then 1 daily for 4 days 201 09/18/28 AZITHROMYCIN 74649487670 No Longer Active Paul Hamlin MD Active FOCALIN XR 10 MG [id number] 1 po q a.m. D EXMETHYLPHENIDATE HCL 20096168168 No Longer Active Paul Hamlin MD Activ e PERCOCET 10-325 MG TABS 1 tablet every 6 hours as needed for pain OXYCODONE-ACETAMINOPHEN 18381531289 No Longer Active Paul Hamlin MD Active LORTAB 5 5-500 MG TABS 1/2 to 1 tablet by mouth flaquito ry 4 hours as needed for pain HYDROCODONE-ACETAMINOPHEN 73840962956 No Longer Active Checo Conklin MD Active FOCALIN XR 15 MG [id number] 1 po q a.m. D EXMETHYLPHENIDATE HCL 38079540575 No Longer Active Checo Conklin MD Activ e ZOFRAN ODT 4 MG TBDP 1 po q6hr PRN Nausea ONDAN SETRON 20051226152 No Longer Active Checo Conklin MD Active PERCOCET 5-325 MG TABS 1 tablet by mouth every 6 hours as needed OXYCODONE-ACETAMINOPHEN 21831256663 No Longer Active Checo Conklin MD Active PYRIDIUM 200 MG TABS take 1 tab po TID prn urinary pain. 0 PHENAZOPYRIDINE HCL 28944657933 No Longer Active Checo Conklin MD Active FLUCONAZOLE 150 MG TABS take 1 tab po qday once 04/06 FLUCONAZOLE 73866816111 No Longer Active Dangelo Rangel MD Acti ve CIPRO 500 MG TAB 1 tablet by mouth twice daily CIPROFLOXACIN HCL 37361667506 No Longer Active Dangelo Rangel MD Active PYRIDIUM 200 MG TABS take 1 tab po TID prn urinary pain. 0 PYRIDIUM 200 MG TABS 0157939 PHENAZOPYRIDINE HCL Inactive PERCOCET 5-325 MG TABS 1 tablet by mouth every 6 hours as needed PERCOCET 5-325 MG TABS 7111023 OXYCODONE-ACETAMINOPHEN I nactive ZOFRAN ODT 4 MG TBDP 1 po q6hr PRN Nausea ZOFRAN ODT 4 MG TBDP 417917 ONDANSETRON Inactive FOCALIN XR 15 MG [id number] 1 po q a.m. F OCALIN XR 15 MG [id number] DEXMETHYLPHENIDATE HCL Inactive LORTAB 5 5-500 MG TABS 1/2 to 1 tablet by mouth flaquito ry 4 hours as needed for pain LORTAB 5 5-500 MG TABS HYDROCODONE-A CETAMINOPHEN Inactive PERCOCET 10-325 MG TABS 1 tablet every 6 hours as needed for pain PERCOCET 10-325 MG TABS 6277703 OXYCODONE-ACETAMINOPHEN Inactive FOCALIN XR 10 MG [id number] 1 po q a.m. F OCALIN XR 10 MG [id number] DEXMETHYLPHENIDATE HCL Inactive CEFDINIR 300 MG CAPS 1 po bid CEFDINIR 300 MG CAPS 20 0346 CEFDINIR Inactive ANTIPYRINE-BENZOCAINE 5.4-1.4 % SOLN 1-2 drops in affected ear ANTIPYRINE-BENZOCAINE 5.4-1.4 % SOLN 154455 BENZOCAINE-ANTIPYRINE I nactive FLONASE 50 MCG/ACT SUSP [...] PRN Insomnia TRAZODONE HCL 100 MG TAB 114025 TRAZODONE HCL Inactive CONCERTA 18 MG CR-TABS [...] s prn cough HYDROCODONE-ACETAMINOPHEN 5-325 MG TABS 016040 HYDROCODONE-ACETAMINOPHEN Inactive PHENAZOPYRIDINE HCL 200 MG TABS take 1 tab po TID for bladder pa in PHENAZOPYRIDINE HCL 200 MG TABS 2353347 PHENAZOPYRIDINE HCL Inactive HYDROCODONE-ACETAMINOPHEN 5-325 MG TABS 1 po q 6hr PRN Pain 2013 HYDROCODONE-ACETAMINOPHEN 5-325 MG TABS 443369 HYDROCODONE-ACETAMINOPHEN Inactive CELEXA 20 MG TABS 1 tablet by mouth daily CELEXA 20 MG TABS 401007 CITALOPRAM HYDROBROMIDE Inactive REGLAN 10 MG TAB 1 po TID PRN Nausea REGLAN 10 MG TAB 318771 METOCLOPRAMIDE HCL Inactive LAMISIL 250 MG TAB 1 po qd LAMISIL 250 MG TAB 336703 TERBINAFINE HCL Inactive DICLOFENAC SODIUM 75 MG TBEC 1 tablet by mouth twice daily P RN Knee pain DICLOFENAC SODIUM 75 MG TBEC 294314 DICLOFENAC S ODIUM Inactive METOCLOPRAMIDE HCL 10 MG ORAL TABS take one PO tid PRN nausea 20 29/12/14 METOCLOPRAMIDE HCL 10 MG ORAL TABS 702023 METOCLOPRAMID E HCL Inactive TERBINAFINE HCL 250 MG ORAL TABS take one table PO one time abran y TERBINAFINE HCL 250 MG ORAL TABS 926330 TERBINAFINE HCL Inactive BUPROPION HCL ER (SR) 100 MG ORAL [id number] take one t ablet by mouth one time daily for one week then take 1 two times daily BUPROPION HCL ER (SR) 100 MG ORAL [id number] BUPROPION HCL Inacti ve TRAVEL SICKNESS 25 MG ORAL CHEW chew and swallow one t ablet every 6 hours as needed TRAVEL SICKNESS 25 MG ORAL CHEW 869159 MECLIZINE HCL Inactive SUMATRIPTAN SUCCINATE 100 MG ORAL TABS Take one PRN for migrane SUMATRIPTAN SUCCINATE 100 MG ORAL TABS 790674 SUMATRIPT AN SUCCINATE Inactive COMPRO 25 MG RECTAL SUPP insert or apply one supposit ory rectally as directed every 12 hours as needed for nausea COMP RO 25 MG RECTAL SUPP 730052 PROCHLORPERAZINE Inactive ONDANSETRON [address] one tablet on tongue and allow to dissolve every 6 hours as needed for vomitting ON DANSETRON 8 MG ORAL TBDP 823901 ONDANSETRON Inactive HYDROCODONE-ACETAMINOPHEN 5-325 MG TABS 0.5 to 1 tab b y mouth every 6 hours as needed HYDROCODONE-ACETAMINOPHEN 5-325 MG TABS 8 39906 HYDROCODONE-ACETAMINOPHEN Inactive BACTRIM DS 800-160 MG TAB 1 tab by mouth twice daily 2 BACTRIM DS 800-160 MG TAB 19820918 TRIMETHOPRIM-SULFAMETHOXAZOLE Inac tive DIFLUCAN 150 MG TAB 1 tablet by mouth if needed, hold until symptoms start DIFLUCAN 150 MG TAB 19760325 FLUCONAZOLE Inactive IBUPROFEN 800 MG TABS 1 tab every 8 hours with food 20 31/03/21 IBUPROFEN 800 MG TABS 754949 IBUPROFEN Inactive HYDROCODONE-ACETAMINOPHEN 5-325 MG TABS 1 tab by mouth every 6 hours as needed HYDROCODONE-ACETAMINOPHEN 5-325 MG TABS 300229 HYDROCODONE-ACETAMINOPHEN Inactive BACTROBAN 2 % CREAM Apply to affected area BID for up to 10 days BACTROBAN 2 % CREAM 528849 MUPIROCIN CALCIUM Inactive MAGNESIUM CITRATE 1.745 GM/30ML ORAL SOLN 150ml po BID PRN C onstipation MAGNESIUM CITRATE 1.745 GM/30ML ORAL SOLN 559176 0 MAGNESIUM CITRATE Inactive DIFLUCAN 150 MG TAB 1 tablet by mouth qod DIFLUCAN 150 MG TAB 481692 FLUCONAZOLE Inactive BACTRIM DS 800-160 MG TAB 1 tab by mouth twice daily 2 BACTRIM DS 800-160 MG TAB 566378 TRIMETHOPRIM-SULFAMETHOXAZOLE Inac tive CIPRO 500 MG TAB 1 tablet by mouth twice daily CIPRO 500 MG TAB 147275 CIPROFLOXACIN HCL Inactive FLUCONAZOLE 150 MG TABS take 1 tab po qday once 04/06 FLUCONAZOLE 150 MG TABS 19760325 FLUCONAZOLE Inactive ZITHROMAX Z-KARTHIK 250 MG TABS 2 today, then 1 daily for 4 days 201 09/18/28 ZITHROMAX Z-KARTHIK 250 MG TABS 6018908 AZITHROMYCIN Inac tive PREDNISONE 20 MG TAB 2 tabs daily for 3 days, 1 t ab daily for 3 days, 1/2 tab daily for 2 days PREDNISONE 20 MG TAB 015274 PREDNISON E Inactive AZITHROMYCIN 250 MG TABS 2 po qd x 1 day, then 1 po qd x 4 days AZITHROMYCIN 250 MG TABS 0299417 AZITHROMYCIN Inactiv e PREDNISONE 20 MG TAB 2 tabs daily for 3 days, 1 t ab daily for 3 days, 1/2 tab daily for 2 days PREDNISONE 20 MG TAB 909596 PREDNISON E Inactive CEFDINIR 300 MG CAPS by mouth twice a day CEFDINIR 300 MG CAPS 534383 CEFDINIR Inactive TRIAMCINOLONE ACETONIDE 0.1 % OINT Apply to affected a reas TID for up to 2 weeks TRIAMCINOLONE ACETONIDE 0.1 % OINT 221673 6 TRIAMCINOLONE ACETONIDE Inactive PREDNISONE 20 MG TAB 2 tabs daily for 3 days, 1 t ab daily for 3 days, 1/2 tab daily for 2 days PREDNISONE 20 MG TAB 741120 PREDNISON E Inactive BACTRIM DS 800-160 MG TABS 1 po BID x 7 days 0 BACTRIM DS 800-160 MG TABS 548095 SULFAMETHOXAZOLE-TRIMETHOPRIM Inactive CIPRO 500 MG TAB 1 tablet by mouth twice daily CIPRO 500 MG TAB 174154 CIPROFLOXACIN HCL Inactive AZITHROMYCIN 250 MG TABS 2 po qd x 1 day, then 1 po qd x 4 days AZITHROMYCIN 250 MG TABS 2818216 AZITHROMYCIN Inactiv e FLAGYL 500 MG TAB 1 tablet by mouth bid FLAGYL 500 MG TAB 734795 METRONIDAZOLE Inactive AZITHROMYCIN 250 MG TABS 2 po qd x 1 day, then 1 po qd x 4 days AZITHROMYCIN 250 MG TABS 5462455 AZITHROMYCIN Inactiv e Immunizations Vaccine Administration Date [...] Range Description Lab Report: CBC - Hematology mean corpuscular hemoglobin, RBC 32.7 pg 27. 0-31.2 mean corpuscular hemoglobin concentration, RBC 33.6 G/DL % 31.8-35.4 red blood cell distribution width 13.3 % 11 .6-14.8 platelet count 210 10^3/MM^3 10*3/mm3 069-138 3786/01/26 mean corpuscular volume, RBC 98 fL 80-97 hematocrit, blood 39.2 % 36.0-46.0 hemoglobin, blood 13.2 g/dL 12.0-16.0 erythrocyte (RBC) count 4.02 10^6/MM^3 10*6/mm3 4.04-5.4 8 leukocyte count, blood 8.2 10^3/MM^3 10*3/mm3 4.6-10.2 Lab Report: CBC W/DIFF - Hematology leukocyte count, blood 8.0 10^3/MM^3 10*3/mm3 4.6-10.2 hematocrit, blood 42.8 % 36.0-46.0 mean corpuscular volume, RBC 97 fL 80-97 mean corpuscular hemoglobin, RBC 32.9 pg 27. 0-31.2 mean corpuscular hemoglobin concentration, RBC 33.8 G/DL % 31.8-35.4 red blood cell distribution width 13.0 % 11 .6-14.8 platelet count 248 10^3/MM^3 10*3/mm3 639-847 0106/05/27 neutrophils as percent of blood leukocytes 64.6 % 42.2-75.2 monocytes as percent of blood leukocytes 7.6 % 1.7-9.3 lymphocytes as percent of blood leukocytes 25.1 % 20.5-51.1 erythrocyte (RBC) count 4.40 10^6/MM^3 10*6/mm3 4.04-5.4 8 hemoglobin, blood 14.5 g/dL 12.0-16.0 Lab Report: CBC W/DIFF, Comp. Metabolic Panel, [place] [facility] [place] sodium, serum 139 mmol/L 252-979 5634/10/21 carbon dioxide, venous blood 33.5 mmol/L 21.0-32 [...] Report: CBC W/DIFF, Comp. Metabolic Panel, Qual [facility] [place] Hematology leukocyte count, blood 7.9 10^3/MM^3 [...] 248 10^3/MM^3 10*3/mm3 142-424 Lab Report: Chlamydia/GC [facility]/90099 - Lab chlamydia DNA probe NOT DETECTED NOT DETECTED Lab Report: Chlamydia/GC [facility]/75732 - Microbiology Neisseria gonorrhoeae DNA probe NOT DETECTED NO T DETECTED Lab Report: Comp. Metabolic Panel, Lipid Panel, Thyroid Stimulating Horm ... - Chemistry carbon dioxide, venous blood 30.0 mmol/L 21.0-32 .0 potassium, serum 4.0 mmol/L 3.5-5.2 chloride, serum 105 mmol/L 98-107 blood glucose 85 mg/dL 65-110 urea nitrogen, blood 9 mg/dL 7-18 protein, total urine random Negative mg/dL Negative RBC, urine, dipstick Negative Negative sodium, serum 141 mmol/L 443-939 6356/01/26 creatinine, serum 0.66 mg/dL 0.55-1.30 alanine aminotransferase (SGPT), serum 31 U/L 12-78 aspartate aminotransferase (SGOT), serum 21 U/L 15-37 calcium, serum 8.2 mg/dL 8.5-10.1 bilirubin, serum, total 1.10 mg/dL 0.00-1.00 cholesterol, serum 178 mg/dL 651-415 4132/01/26 triglyceride, serum, fasting 149 mg/dL 30-200 HDL [...] ... - Chemistry sodium, serum 137 mmol/L 423-312 8381/05/27 carbon dioxide, venous blood 29.1 mmol/L 21.0-32 [...] 5.0-8.5 Encounters Code Encounter Date Provider Facility CPT-08177 Level 3 Est. Patient 09:11:49 CDT Efren almendarez [facility] CPT-96484 Level 2 Est. Patient 19:53:27 CDT Tanner hill MD [facility] CPT-92437 Level 3 Est. Patient 09:15:34 CDT Efren Nicolas erickson [facility] CPT-70933 Level 3 Est. Patient 11:28:51 ARCHITECTURAL TECHNOLOGIST Efren almendarez [facility] CPT-46604 Level 4 Est. Patient 13:55:46 ARCHITECTURAL TECHNOLOGIST Checo Conklin MD [facility] CPT-45508 Level 4 Est. Patient 17:10:53 CDT Checo Conklin MD [facility] CPT-27159 Level 3 Est. Patient 15:56:22 CDT Checo Conklin MD [facility] CPT-57282 Level 3 Est. Patient 15:29:07 CDT Checo Conklin MD [facility] CPT-07678 Level 3 Est. Patient 14:38:41 CDT Checo Conklin MD [facility] CPT-25041 Level 3 Est. Patient 15:22:03 ARCHITECTURAL TECHNOLOGIST Thomas reynolds DO [facility] CPT-87872 Level 3 Est. Patient 13:34:17 ARCHITECTURAL TECHNOLOGIST Checo Conklin MD [facility] CPT-05680 Level 3 Est. Patient 12:29:32 CDT Dangelo arroyo MD [facility]-75393 Level 3 Est. Patient 16:53:02 CDT Checo Conkiln MD [facility] CPT-44675 Level 3 Est. Patient 16:37:13 CDT Checo Conklin MD [facility] CPT-07962 Level 3 Est. Patient 16:16:59 CDT Paul Hamlin MD [facility]-03336 Level 3 Est. Patient 14:20:13 CDT Dangelo arroyo MD [facility] CPT-97217 Level 4 Est. Patient 11:29:33 CDT Checo Conklin MD [facility] CPT-43724 Level 3 Est. Patient 17:08:31 CDT Checo Conklin MD [facility] CPT-07982 Level 3 Est. Patient 16:50:42 ARCHITECTURAL TECHNOLOGIST Checo Conklin MD [facility] CPT-58946 Level 4 Est. Patient 09:26:08 ARCHITECTURAL TECHNOLOGIST Checo Con[facility]lin [facility] CPT-05031 Level 3 Est. Patient 11:37:10 CDT Checo Conklin MD [facility] CPT-39255 Level 4 Est. Patient 14:07:38 CDT Checo Conklin MD [facility] CPT-45498 Level 3 Est. Patient 09:54:41 CDT Checo Conklin MD [facility] CPT-34127 Level 3 Est. Patient 11:10:54 CDT Paul Hamlin MD [facility] CPT-85851 Level 3 Est. Patient 14:16:56 ARCHITECTURAL TECHNOLOGIST Checo Conklin MD [facility] CPT-54215 Level 3 Est. Patient 11:04:11 ARCHITECTURAL TECHNOLOGIST Cehco Conklin MD [facility] CPT-49426 Level 3 Est. Patient 17:09:26 CDT Dangelo arroyo MD [facility] CPT-12723 Level 3 Est. Patient 16:54:37 CDT Checo Conklin MD [facility] Procedures Code Procedure Name Date Entry Date Standard Desc ription CPT-60898 UA w micro - LAB USE ONLY 17:06:46 CDT 2015 CPT-58507 [facility] Qual - LAB USE ONLY 17:06:46 CDT 05/06 CPT-67120 CMP - LAB USE ONLY 17:06:46 CDT CPT-66747 CBC with Diff - LAB USE ONLY 17:06:45 CDT 2 CPT-69558 Venipuncture Draw Fee 17:06:45 CDT CPT-LR Lesion Removal 19:53:27 CDT CPT-OV Office Visit 11:31:28 CDT CPT-84435 Tubersol 09:39:29 CDT CPT-J2550 Phenergan 25 mg (Promethazine) 13:59:02 ARCHITECTURAL TECHNOLOGIST CPT-J1885 Toradol 60 mg (Ketorolac) 13:59:02 ARCHITECTURAL TECHNOLOGIST 2012
--- OUTSIDE RECORDS SUMMARY | 2019-09-29 01:29 | XMS REPORT | Clinical Summary ---
Author Author Admin, Bethany Gonzales Organization [facility] Address Unknown Phone Unavailable Allergies, Adverse [...] Checo martinez MD Vaginitis and vulvovaginitis, unspecified FH BREAST CANCER ICD-V16.3 Inactive Checo [...] Generic Name NDC Status Provider Patient Instruction FLAGYL 500 MG TAB 1 tablet by mouth bid METRONI DAZOLE [id number] No Longer Active Checo Conklin MD Active FOCALIN XR 10 MG ORAL [id number] 1 po q a.m. DEX METHYLPHENIDATE HCL 59855239531 Active Checo Conklin MD Active MAGNESIUM CITRATE 1.745 GM/30ML ORAL SOLN 150ml po BID PRN C onstipation MAGNESIUM CITRATE 54175172681 No Longer Active Checo Conklin MD Active BACTROBAN 2 % CREAM Apply to affected area BID for up to 10 days MUPIROCIN CALCIUM 18983564365 No Longer Active Checo Conklin MD Active HYDROCODONE-ACETAMINOPHEN 5-325 MG TABS 1 tab by mouth every 6 hours as needed HYDROCODONE-ACETAMINOPHEN 77616928572 No Longer Activ e Checo Conklin MD Active IBUPROFEN 800 MG TABS 1 tab every 8 hours with food 31/03/21 IBUPROFEN 45546972674 No Longer Active Checo Conklin MD Activ e DIFLUCAN 150 MG TAB 1 tablet by mouth if needed, hold until symptoms start FLUCONAZOLE 81374172361 No Longer Active Checo Ortiz MD Active BACTRIM DS 800-160 MG TAB 1 tab by mouth twice daily 2 TRIMETHOPRIM-SULFAMETHOXAZOLE 47437165477 No Longer Active Corry leong LPN Active MIRALAX PACK 1 po qd PRN Constipation POLYETHYL JOEL GLYCOL 3350 19554686070 Active Checo Conklin MD Active HYDROCODONE-ACETAMINOPHEN 5-325 MG TABS 0.5 to 1 tab b y mouth every 6 hours as needed HYDROCODONE-ACETAMINOPHEN 76146747754 No Longer Active Checo Conklin MD Active ONDANSETRON [address] one tablet on tongue and allow to dissolve every 6 hours as needed for vomitting ONDANSETRO N 53773528677 No Longer Active Checo Conklin MD Active COMPRO 25 MG RECTAL SUPP insert or apply one supposit ory rectally as directed every 12 hours as needed for nausea PROCHLORPERA ZINE 74393505492 No Longer Active Checo Conklin MD Active SUMATRIPTAN SUCCINATE 100 MG ORAL TABS Take one PRN for migrane SUMATRIPTAN SUCCINATE 25529680036 No Longer Active Checo Conklin MD Active TRAVEL SICKNESS 25 MG ORAL CHEW chew and swallow one t ablet every 6 hours as needed MECLIZINE HCL 99847861859 No Longer Active Joe Conklin MD Active BUPROPION HCL ER (SR) 100 MG ORAL [id number] take one t ablet by mouth one time daily for one week then take 1 two times daily BUPROPION HCL 44673148649 No Longer Active Checo Conklin MD Activ e TERBINAFINE HCL 250 MG ORAL TABS take one table PO one time abran y TERBINAFINE HCL 17611562024 No Longer Active Checo Conklin MD Active METOCLOPRAMIDE HCL 10 MG ORAL TABS take one PO tid PRN nausea 20 29/12/14 METOCLOPRAMIDE HCL 30640959771 No Longer Active Checo Conklin MD Active DICLOFENAC SODIUM 75 MG TBEC 1 tablet by mouth twice daily P RN Knee pain DICLOFENAC SODIUM 00060205441 No Longer Active Checo Conklin MD Active LAMISIL 250 MG TAB 1 po qd TERBINAFINE HCL 548 08043947 No Longer Active Checo Conklin MD Active REGLAN 10 MG TAB 1 po TID PRN Nausea METOCLOPRA MIDE HCL 47770321776 No Longer Active Checo Conklin MD Active CELEXA 20 MG TABS 1 tablet by mouth daily CITALOPRAM HYDROBROMIDE 68902961120 No Longer Active Checo Conklin MD Activ e AZITHROMYCIN 250 MG TABS 2 po qd x 1 day, then 1 po qd x 4 days AZITHROMYCIN 02401445686 No Longer Active Checo Conklin MD Active HYDROCODONE-ACETAMINOPHEN 5-325 MG TABS 1 po q 6hr PRN Pain 2013 HYDROCODONE-ACETAMINOPHEN 67883853226 No Longer Active Lenora Conklin MD Active PHENAZOPYRIDINE HCL 200 MG TABS take 1 tab po TID for bladder pa in PHENAZOPYRIDINE HCL 64599702613 No Longer Active Checo Joshua Active CIPRO 500 MG TAB 1 tablet by mouth twice daily CIPROFLOXACIN HCL 97109240026 No Longer Active Dangelo Rangel MD Active HYDROCODONE-ACETAMINOPHEN 5-325 MG TABS 1/2 to 1 po q 4 hour s prn cough HYDROCODONE-ACETAMINOPHEN 78734246531 No Longer Activ e Dangelo Rangel MD Active BACTRIM DS 800-160 MG TABS 1 po BID x 7 days 0 SULFAMETHOXAZOLE-TRIMETHOPRIM 32603447282 No Longer Active Checo Conklin MD Active PREDNISONE 20 MG TAB 2 tabs daily for 3 days, 1 t ab daily for 3 days, 1/2 tab daily for 2 days PREDNISONE 30872133940 No Longer Active Checo Conklin MD Active TRIAMCINOLONE ACETONIDE 0.1 % OINT Apply to affected a reas TID for up to 2 weeks TRIAMCINOLONE ACETONIDE 32386689313 No Longer A ctive Checo Conklin MD Active CEFDINIR 300 MG CAPS by mouth twice a day CEFDI JAZZY 14148348545 No Longer Active Dangelo Rangel MD Active BUPROPION HCL (SMOKING DETER) 150 MG [id number] 1 a day for 1 week then 1 twice a day BUPROPION HCL (SMOKING DETER) 98076535693 No Lo nger Active Checo Conklin MD Active SIMVASTATIN 20 MG TABS 1 po qd SIMVASTATIN 4446566274 5 Active Checo Conklin MD Active CHANTIX STARTING MONTH KARTHIK 0.5 MG X 11 & 1 MG X 42 TAB S 0.5mg daily for 3 days, then 0.5mg BID for 4 days, then 1mg BID VARENICLINE TARTRATE 53153347497 No Longer Active Checo Conklin MD Activ e XANAX 0.5 MG TABS 1 po BID PRN anxiety ALPRAZOLAM 95539733033 Active Checo Conklin MD Active CONCERTA 18 MG CR-TABS 1 po q a.m. METHYLPHENID ATE HCL 70288087925 No Longer Active Checo Conklin MD Active AMBIEN 5 MG TAB 1 po qHS PRN Insomnia ZOLPIDEM TARTRATE 20854320323 Active Checo Conklin MD Active TRAZODONE HCL 100 MG TAB 0.5 to 1 po qHS PRN Insomnia TRAZODONE HCL 94394391767 No Longer Active Checo Conklin MD Acti ve FIORICET 325-50-40 MG TAB 1 tablet by mouth four times daily as needed [id number] 35165633654 No Longer Active Checo Conklin MD Active PHENERGAN CREAM* 25mg applied to wrist q6hr PRN Nausea PHENERGAN CREAM* No Longer Active Checo Conklin MD A ctive FLONASE 50 MCG/ACT SUSP 1 spray each nostril am and hs FLUTICASONE PROPIONATE 22338059253 No Longer Active Checo Conklin MD Activ e ANTIPYRINE-BENZOCAINE 5.4-1.4 % SOLN 1-2 drops in affected ear BENZOCAINE-ANTIPYRINE 81804175953 No Longer Active Checo Conklin MD Active CEFDINIR 300 MG CAPS 1 po bid CEFDINIR 10453398 120 No Longer Active Checo Conklin MD Active PREDNISONE 20 MG TAB 2 tabs daily for 3 days, 1 t ab daily for 3 days, 1/2 tab daily for 2 days PREDNISONE 75190294758 No Longer Active Aracelis Conklin MD Active AZITHROMYCIN 250 MG TABS 2 po qd x 1 day, then 1 po qd x 4 days AZITHROMYCIN 46878917724 No Longer Active Checo Conklin MD Active PREDNISONE 20 MG TAB 2 tabs daily for 3 days, 1 t ab daily for 3 days, 1/2 tab daily for 2 days PREDNISONE 98364615417 No Longer Active Checo Conklin MD Active ZITHROMAX Z-KARTHIK 250 MG TABS 2 today, then 1 daily for 4 days 201 09/18/28 AZITHROMYCIN 64028610777 No Longer Active Paul Hamlin MD Active FOCALIN XR 10 MG [id number] 1 po q a.m. D EXMETHYLPHENIDATE HCL 87268962087 No Longer Active Paul Hamlin MD Activ e PERCOCET 10-325 MG TABS 1 tablet every 6 hours as needed for pain OXYCODONE-ACETAMINOPHEN 76729387913 No Longer Active Paul Hamlin MD Active LORTAB 5 5-500 MG TABS 1/2 to 1 tablet by mouth flaquito ry 4 hours as needed for pain HYDROCODONE-ACETAMINOPHEN 84291174902 No Longer Active Checo Conklin MD Active FOCALIN XR 15 MG [id number] 1 po q a.m. D EXMETHYLPHENIDATE HCL 34351222157 No Longer Active Checo Conklin MD Activ e ZOFRAN ODT 4 MG TBDP 1 po q6hr PRN Nausea ONDAN SETRON 43775653989 No Longer Active Checo Conklin MD Active PERCOCET 5-325 MG TABS 1 tablet by mouth every 6 hours as needed OXYCODONE-ACETAMINOPHEN 59426015592 No Longer Active Checo Conklin MD Active PYRIDIUM 200 MG TABS take 1 tab po TID prn urinary pain. 0 PHENAZOPYRIDINE HCL 75839513947 No Longer Active Checo Conklin MD Active FLUCONAZOLE 150 MG TABS take 1 tab po qday once 04/06 FLUCONAZOLE 71459347533 No Longer Active Dangelo Rangel MD Acti ve CIPRO 500 MG TAB 1 tablet by mouth twice daily CIPROFLOXACIN HCL 65883710700 No Longer Active Dangelo Rangel MD Active PYRIDIUM 200 MG TABS take 1 tab po TID prn urinary pain. 0 PYRIDIUM 200 MG TABS 4981130 PHENAZOPYRIDINE HCL Inactive PERCOCET 5-325 MG TABS 1 tablet by mouth every 6 hours as needed PERCOCET 5-325 MG TABS 0735716 OXYCODONE-ACETAMINOPHEN I nactive ZOFRAN ODT 4 MG TBDP 1 po q6hr PRN Nausea ZOFRAN ODT 4 MG TBDP 899554 ONDANSETRON Inactive FOCALIN XR 15 MG [id number] 1 po q a.m. F OCALIN XR 15 MG [id number] DEXMETHYLPHENIDATE HCL Inactive LORTAB 5 5-500 MG TABS 1/2 to 1 tablet by mouth flaquito ry 4 hours as needed for pain LORTAB 5 5-500 MG TABS HYDROCODONE-A CETAMINOPHEN Inactive PERCOCET 10-325 MG TABS 1 tablet every 6 hours as needed for pain PERCOCET 10-325 MG TABS 9952615 OXYCODONE-ACETAMINOPHEN Inactive FOCALIN XR 10 MG [id number] 1 po q a.m. F OCALIN XR 10 MG [id number] DEXMETHYLPHENIDATE HCL Inactive CEFDINIR 300 MG CAPS 1 po bid CEFDINIR 300 MG CAPS 20 0346 CEFDINIR Inactive ANTIPYRINE-BENZOCAINE 5.4-1.4 % SOLN 1-2 drops in affected ear ANTIPYRINE-BENZOCAINE 5.4-1.4 % SOLN 830434 BENZOCAINE-ANTIPYRINE I nactive FLONASE 50 MCG/ACT SUSP [...] PRN Insomnia TRAZODONE HCL 100 MG TAB 700082 TRAZODONE HCL Inactive CONCERTA 18 MG CR-TABS [...] s prn cough HYDROCODONE-ACETAMINOPHEN 5-325 MG TABS 601339 HYDROCODONE-ACETAMINOPHEN Inactive PHENAZOPYRIDINE HCL 200 MG TABS take 1 tab po TID for bladder pa in PHENAZOPYRIDINE HCL 200 MG TABS 6993811 PHENAZOPYRIDINE HCL Inactive HYDROCODONE-ACETAMINOPHEN 5-325 MG TABS 1 po q 6hr PRN Pain 2013 HYDROCODONE-ACETAMINOPHEN 5-325 MG TABS 648958 HYDROCODONE-ACETAMINOPHEN Inactive CELEXA 20 MG TABS 1 tablet by mouth daily CELEXA 20 MG TABS 258945 CITALOPRAM HYDROBROMIDE Inactive REGLAN 10 MG TAB 1 po TID PRN Nausea REGLAN 10 MG TAB 334742 METOCLOPRAMIDE HCL Inactive LAMISIL 250 MG TAB 1 po qd LAMISIL 250 MG TAB 105263 TERBINAFINE HCL Inactive DICLOFENAC SODIUM 75 MG TBEC 1 tablet by mouth twice daily P RN Knee pain DICLOFENAC SODIUM 75 MG TBEC 381565 DICLOFENAC S ODIUM Inactive METOCLOPRAMIDE HCL 10 MG ORAL TABS take one PO tid PRN nausea 20 29/12/14 METOCLOPRAMIDE HCL 10 MG ORAL TABS 747063 METOCLOPRAMID E HCL Inactive TERBINAFINE HCL 250 MG ORAL TABS take one table PO one time abran y TERBINAFINE HCL 250 MG ORAL TABS 026557 TERBINAFINE HCL Inactive BUPROPION HCL ER (SR) 100 MG ORAL [id number] take one t ablet by mouth one time daily for one week then take 1 two times daily BUPROPION HCL ER (SR) 100 MG ORAL [id number] BUPROPION HCL Inacti ve TRAVEL SICKNESS 25 MG ORAL CHEW chew and swallow one t ablet every 6 hours as needed TRAVEL SICKNESS 25 MG ORAL CHEW 932725 MECLIZINE HCL Inactive SUMATRIPTAN SUCCINATE 100 MG ORAL TABS Take one PRN for migrane SUMATRIPTAN SUCCINATE 100 MG ORAL TABS 478179 SUMATRIPT AN SUCCINATE Inactive COMPRO 25 MG RECTAL SUPP insert or apply one supposit ory rectally as directed every 12 hours as needed for nausea COMP RO 25 MG RECTAL SUPP 765042 PROCHLORPERAZINE Inactive ONDANSETRON [address] one tablet on tongue and allow to dissolve every 6 hours as needed for vomitting ON DANSETRON 8 MG ORAL TBDP 467197 ONDANSETRON Inactive HYDROCODONE-ACETAMINOPHEN 5-325 MG TABS 0.5 to 1 tab b y mouth every 6 hours as needed HYDROCODONE-ACETAMINOPHEN 5-325 MG TABS 8 55626 HYDROCODONE-ACETAMINOPHEN Inactive BACTRIM DS 800-160 MG TAB 1 tab by mouth twice daily 2 BACTRIM DS 800-160 MG TAB 303761 TRIMETHOPRIM-SULFAMETHOXAZOLE Inac tive DIFLUCAN 150 MG TAB 1 tablet by mouth if needed, hold until symptoms start DIFLUCAN 150 MG TAB 125913 FLUCONAZOLE Inactive IBUPROFEN 800 MG TABS 1 tab every 8 hours with food 31/03/21 IBUPROFEN 800 MG TABS 621637 IBUPROFEN Inactive HYDROCODONE-ACETAMINOPHEN 5-325 MG TABS 1 tab by mouth every 6 hours as needed HYDROCODONE-ACETAMINOPHEN 5-325 MG TABS 613549 HYDROCODONE-ACETAMINOPHEN Inactive BACTROBAN 2 % CREAM Apply to affected area BID for up to 10 days BACTROBAN 2 % CREAM 783957 MUPIROCIN CALCIUM Inactive MAGNESIUM CITRATE 1.745 GM/30ML ORAL SOLN 150ml po BID PRN C onstipation MAGNESIUM CITRATE 1.745 GM/30ML ORAL SOLN 064555 0 MAGNESIUM CITRATE Inactive CIPRO 500 MG TAB 1 tablet by mouth twice daily CIPRO 500 MG TAB 331087 CIPROFLOXACIN HCL Inactive FLUCONAZOLE 150 MG TABS take 1 tab po qday once 04/06 FLUCONAZOLE 150 MG TABS 179037 FLUCONAZOLE Inactive ZITHROMAX Z-KARTHIK 250 MG TABS 2 today, then 1 daily for 4 days 201 09/18/28 ZITHROMAX Z-KARTHIK 250 MG TABS 4509963 AZITHROMYCIN Inac tive PREDNISONE 20 MG TAB 2 tabs daily for 3 days, 1 t ab daily for 3 days, 1/2 tab daily for 2 days PREDNISONE 20 MG TAB 696328 PREDNISON E Inactive AZITHROMYCIN 250 MG TABS 2 po qd x 1 day, then 1 po qd x 4 days AZITHROMYCIN 250 MG TABS 8100281 AZITHROMYCIN Inactiv e PREDNISONE 20 MG TAB 2 tabs daily for 3 days, 1 t ab daily for 3 days, 1/2 tab daily for 2 days PREDNISONE 20 MG TAB 792033 PREDNISON E Inactive CEFDINIR 300 MG CAPS by mouth twice a day CEFDINIR 300 MG CAPS 251127 CEFDINIR Inactive TRIAMCINOLONE ACETONIDE 0.1 % OINT Apply to affected a reas TID for up to 2 weeks TRIAMCINOLONE ACETONIDE 0.1 % OINT 753483 6 TRIAMCINOLONE ACETONIDE Inactive PREDNISONE 20 MG TAB 2 tabs daily for 3 days, 1 t ab daily for 3 days, 1/2 tab daily for 2 days PREDNISONE 20 MG TAB 196886 PREDNISON E Inactive BACTRIM DS 800-160 MG TABS 1 po BID x 7 days 0 BACTRIM DS 800-160 MG TABS 726774 SULFAMETHOXAZOLE-TRIMETHOPRIM Inactive CIPRO 500 MG TAB 1 tablet by mouth twice daily CIPRO 500 MG TAB 195627 CIPROFLOXACIN HCL Inactive AZITHROMYCIN 250 MG TABS 2 po qd x 1 day, then 1 po qd x 4 days AZITHROMYCIN 250 MG TABS 6114360 AZITHROMYCIN Inactiv e FLAGYL 500 MG TAB 1 tablet by mouth bid FLAGYL 500 MG TAB 122280 METRONIDAZOLE Inactive Immunizations Vaccine Administration Date Value Standard [...] 5.0-8.5 Encounters Code Encounter Date Provider Facility CPT-76293 Level 4 Est. Patient 13:55:46 NUCLEAR MEDICINE PHYSICIAN Checo Conklin MD [facility] CPT-74120 Level 4 Est. Patient 17:10:53 CDT Checo Conklin MD [facility] CPT-03079 Level 3 Est. Patient 15:56:22 CDT Checo Conklin MD [facility] CPT-79720 Level 3 Est. Patient 15:29:07 CDT Checo Conklin MD [facility] CPT-91763 Level 3 Est. Patient 14:38:41 CDT Checo Conklin MD [facility] CPT-59921 Level 3 Est. Patient 15:22:03 NUCLEAR MEDICINE PHYSICIAN Thomas reynolds DO [facility] CPT-33918 Level 3 Est. Patient 13:34:17 NUCLEAR MEDICINE PHYSICIAN Checo Conklin MD [facility] CPT-86871 Level 3 Est. Patient 12:29:32 CDT Dangelo arroyo MD [facility] CPT-66296 Level 3 Est. Patient 16:53:02 CDT Checo Conklin MD [facility] CPT-86803 Level 3 Est. Patient 16:37:13 CDT Checo Conklin MD [facility] CPT-26886 Level 3 Est. Patient 16:16:59 CDT Paul Hamlin MD [facility] CPT-58158 Level 3 Est. Patient 14:20:13 CDT Dangelo arroyo MD [facility] CPT-65199 Level 4 Est. Patient 11:29:33 CDT Checo Conklin MD [facility] CPT-54082 Level 3 Est. Patient 17:08:31 CDT Checo Conklin MD [facility] CPT-08490 Level 3 Est. Patient 16:50:42 NUCLEAR MEDICINE PHYSICIAN Checo Conklin MD [facility] CPT-33762 Level 4 Est. Patient 09:26:08 NUCLEAR MEDICINE PHYSICIAN Checo Conklin MD [facility] CPT-26313 Level 3 Est. Patient 11:37:10 CDT Checo Conklin MD [facility] CPT-58567 Level 4 Est. Patient 14:07:38 CDT Checo Conklin MD [facility] CPT-39514 Level 3 Est. Patient 09:54:41 CDT Checo Conklin MD [facility] CPT-67513 Level 3 Est. Patient 11:10:54 CDT Paul Hamlin MD [facility] CPT-83053 Level 3 Est. Patient 14:16:56 NUCLEAR MEDICINE PHYSICIAN Checo Conklin MD [facility] CPT-48394 Level 3 Est. Patient 11:04:11 NUCLEAR MEDICINE PHYSICIAN Checo Conklin MD [facility] CPT-27570 Level 3 Est. Patient 17:09:26 CDT Dangelo arroyo MD [facility] CPT-67319 Level 3 Est. Patient 16:54:37 CDT Checo Conklin MD [facility] Procedures Code Procedure Name Date Entry Date Standard Desc ription CPT-OV Office Visit 11:31:28 CDT CPT-48387 Tubersol 09:39:29 CDT CPT-J2550 Phenergan 25 mg (Promethazine) 13:59:02 NUCLEAR MEDICINE PHYSICIAN CPT-J1885 Toradol 60 mg (Ketorolac) 13:59:02 NUCLEAR MEDICINE PHYSICIAN 2012
--- OUTSIDE RECORDS SUMMARY | 2019-09-29 01:29 | XMS REPORT | Clinical Summary ---
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 Tanner Carrillo MD Neoplasm of uncertain behavior of skin Abdominal pain, generalized 789.07 Active Jillina Frazell MARKETING RESEARCH COORDINATOR Abdominal pain, generalized Urinary frequency 788.41 Active Jillina Frazell MARKETING RESEARCH COORDINATOR Urinary frequency BREAST CANCER ICD-V16.3 Inactive Checo Joshua DIABETES ICD-V18.0 Inactive Checo Conklin MD 201 [...] tab by mouth twice daily 2 TRIMETHOPRIM-SULFAMETHOXAZOLE 46080601424 No Longer Active Tanner Carrillo MD Active DIFLUCAN 150 MG TAB 1 tablet by mouth qod FLUCO NAZOLE 98156927946 No Longer Active Efren Medel APRN Active CLARITIN 10 MG TAB 1 tablet by mouth daily as needed for allergies LORATADINE 38615648995 Active Jillina Frazell MARKETING RESEARCH COORDINATOR Active AZITHROMYCIN 250 MG TABS 2 po qd x 1 day, then 1 po qd x 4 days AZITHROMYCIN 37919464332 No Longer Active Jillina Lizy MAX Active FLAGYL 500 MG TAB 1 tablet by mouth bid METRONI DAZOLE 16722973828 No Longer Active Checo Conklin MD Active FOCALIN XR 10 MG ORAL [id number] 1 po q a.m. DEX METHYLPHENIDATE HCL 43670115388 Active Checo Conklin MD Active MAGNESIUM CITRATE 1.745 GM/30ML ORAL SOLN 150ml po BID PRN C onstipation MAGNESIUM CITRATE 92676462223 No Longer Active Checo Conklin MD Active BACTROBAN 2 % CREAM Apply to affected area BID for up to 10 days MUPIROCIN CALCIUM 90354230881 No Longer Active Checo Conklin MD Active HYDROCODONE-ACETAMINOPHEN 5-325 MG TABS 1 tab by mouth every 6 hours as needed HYDROCODONE-ACETAMINOPHEN 33828788287 No Longer Activ e Checo Conklin MD Active IBUPROFEN 800 MG TABS 1 tab every 8 hours with food 31/03/21 IBUPROFEN 01160837507 No Longer Active Checo Conklin MD Activ e DIFLUCAN 150 MG TAB 1 tablet by mouth if needed, hold until symptoms start FLUCONAZOLE 75909876470 No Longer Active Checo Ortiz MD Active BACTRIM DS 800-160 MG TAB 1 tab by mouth twice daily 2 TRIMETHOPRIM-SULFAMETHOXAZOLE 69445771853 No Longer Active Corry leong LPN Active MIRALAX PACK 1 po qd PRN Constipation POLYETHYL JOEL GLYCOL 3350 78647726981 Active Checo Conklin MD Active HYDROCODONE-ACETAMINOPHEN 5-325 MG TABS 0.5 to 1 tab b y mouth every 6 hours as needed HYDROCODONE-ACETAMINOPHEN 29464971210 No Longer Active Checo Conklin MD Active ONDANSETRON [address] one tablet on tongue and allow to dissolve every 6 hours as needed for vomitting ONDANSETRO N 32592965002 No Longer Active Checo Conklin MD Active COMPRO 25 MG RECTAL SUPP insert or apply one supposit ory rectally as directed every 12 hours as needed for nausea PROCHLORPERA ZINE 42608035196 No Longer Active Checo Conklin MD Active SUMATRIPTAN SUCCINATE 100 MG ORAL TABS Take one PRN for migrane SUMATRIPTAN SUCCINATE 55427892684 No Longer Active Checo Conklin MD Active TRAVEL SICKNESS 25 MG ORAL CHEW chew and swallow one t ablet every 6 hours as needed MECLIZINE HCL 12923599288 No Longer Active Joe Conklin MD Active BUPROPION HCL ER (SR) 100 MG ORAL [id number] take one t ablet by mouth one time daily for one week then take 1 two times daily BUPROPION HCL 96540881131 No Longer Active Checo Conklin MD Activ e TERBINAFINE HCL 250 MG ORAL TABS take one table PO one time abran y TERBINAFINE HCL 67891521047 No Longer Active Checo Conklin MD Active METOCLOPRAMIDE HCL 10 MG ORAL TABS take one PO tid PRN nausea 20 29/12/14 METOCLOPRAMIDE HCL 43722570142 No Longer Active Checo Conklin MD Active DICLOFENAC SODIUM 75 MG TBEC 1 tablet by mouth twice daily P RN Knee pain DICLOFENAC SODIUM 19454286967 No Longer Active Checo Conklin MD Active LAMISIL 250 MG TAB 1 po qd TERBINAFINE HCL 548 66229832 No Longer Active Checo Conklin MD Active REGLAN 10 MG TAB 1 po TID PRN Nausea METOCLOPRA MIDE HCL 52881228412 No Longer Active Checo Conklin MD Active CELEXA 20 MG TABS 1 tablet by mouth daily CITALOPRAM HYDROBROMIDE 96051853648 No Longer Active Checo Conklin MD Activ e AZITHROMYCIN 250 MG TABS 2 po qd x 1 day, then 1 po qd x 4 days AZITHROMYCIN 20199128902 No Longer Active Checo Conklin MD Active HYDROCODONE-ACETAMINOPHEN 5-325 MG TABS 1 po q 6hr PRN Pain 2013 HYDROCODONE-ACETAMINOPHEN 84449070940 No Longer Active Lenora Conklin MD Active PHENAZOPYRIDINE HCL 200 MG TABS take 1 tab po TID for bladder pa in PHENAZOPYRIDINE HCL 81525584388 No Longer Active Checo Joshua Active CIPRO 500 MG TAB 1 tablet by mouth twice daily CIPROFLOXACIN HCL 92544114940 No Longer Active Dangelo Rangel MD Active HYDROCODONE-ACETAMINOPHEN 5-325 MG TABS 1/2 to 1 po q 4 hour s prn cough HYDROCODONE-ACETAMINOPHEN 22197147641 No Longer Activ e Dangelo Rangel MD Active BACTRIM DS 800-160 MG TABS 1 po BID x 7 days 0 SULFAMETHOXAZOLE-TRIMETHOPRIM 42696552098 No Longer Active Checo Conklin MD Active PREDNISONE 20 MG TAB 2 tabs daily for 3 days, 1 t ab daily for 3 days, 1/2 tab daily for 2 days PREDNISONE 69001858383 No Longer Active Checo Conklin MD Active TRIAMCINOLONE ACETONIDE 0.1 % OINT Apply to affected a reas TID for up to 2 weeks TRIAMCINOLONE ACETONIDE 29175683498 No Longer A ctive hCeco Conklin MD Active CEFDINIR 300 MG CAPS by mouth twice a day CEFDI JAZZY 51012361813 No Longer Active Dangelo Rangel MD Active BUPROPION HCL (SMOKING DETER) 150 MG [id number] 1 a day for 1 week then 1 twice a day BUPROPION HCL (SMOKING DETER) 69836957170 No Lo nger Active Checo Conklin MD Active SIMVASTATIN 20 MG TABS 1 po qd SIMVASTATIN 4939559727 5 Active Checo Conklin MD Active CHANTIX STARTING MONTH KARTHIK 0.5 MG X 11 & 1 MG X 42 TAB S 0.5mg daily for 3 days, then 0.5mg BID for 4 days, then 1mg BID VARENICLINE TARTRATE 97527562478 No Longer Active Checo Conklin MD Activ e XANAX 0.5 MG TABS 1 po BID PRN anxiety ALPRAZOLAM 30137888829 Active Checo Conklin MD Active CONCERTA 18 MG CR-TABS 1 po q a.m. METHYLPHENID ATE HCL 72371429652 No Longer Active Checo Conklin MD Active AMBIEN 5 MG TAB 1 po qHS PRN Insomnia ZOLPIDEM TARTRATE 64311164912 Active Checo Conklin MD Active TRAZODONE HCL 100 MG TAB 0.5 to 1 po qHS PRN Insomnia TRAZODONE HCL 38009375732 No Longer Active Checo Conklin MD Acti ve FIORICET 325-50-40 MG TAB 1 tablet by mouth four times daily as needed [id number] 20394330078 No Longer Active Checo Conklin MD Active PHENERGAN CREAM* 25mg applied to wrist q6hr PRN Nausea PHENERGAN CREAM* No Longer Active Checo Conklin MD A ctive FLONASE 50 MCG/ACT SUSP 1 spray each nostril am and hs FLUTICASONE PROPIONATE 35793266050 No Longer Active Checo Simms e ANTIPYRINE-BENZOCAINE 5.4-1.4 % SOLN 1-2 drops in affected ear BENZOCAINE-ANTIPYRINE 85494940964 No Longer Active Checo Conklin MD Active CEFDINIR 300 MG CAPS 1 po bid CEFDINIR 87470828 120 No Longer Active Checo Conklin MD Active PREDNISONE 20 MG TAB 2 tabs daily for 3 days, 1 t ab daily for 3 days, 1/2 tab daily for 2 days PREDNISONE 85875112317 No Longer Active Aracelis Conklin MD Active AZITHROMYCIN 250 MG TABS 2 po qd x 1 day, then 1 po qd x 4 days AZITHROMYCIN 40417896414 No Longer Active Checo Conklin MD Active PREDNISONE 20 MG TAB 2 tabs daily for 3 days, 1 t ab daily for 3 days, 1/2 tab daily for 2 days PREDNISONE 45834368226 No Longer Active Checo Conklin MD Active ZITHROMAX Z-KARTHIK 250 MG TABS 2 today, then 1 daily for 4 days 201 09/18/28 AZITHROMYCIN 69037113851 No Longer Active Paul Hamlin MD Active FOCALIN XR 10 MG [id number] 1 po q a.m. D EXMETHYLPHENIDATE HCL 61053129875 No Longer Active Paul Hamlin MD Activ e PERCOCET 10-325 MG TABS 1 tablet every 6 hours as needed for pain OXYCODONE-ACETAMINOPHEN 99077716990 No Longer Active Paul Hamlin MD Active LORTAB 5 5-500 MG TABS 1/2 to 1 tablet by mouth flaquito ry 4 hours as needed for pain HYDROCODONE-ACETAMINOPHEN 33152936688 No Longer Active Checo Conklin MD Active FOCALIN XR 15 MG [id number] 1 po q a.m. D EXMETHYLPHENIDATE HCL 86898306908 No Longer Active Checo Conklin MD Activ e ZOFRAN ODT 4 MG TBDP 1 po q6hr PRN Nausea ONDAN SETRON 51746978120 No Longer Active Checo Conklin MD Active PERCOCET 5-325 MG TABS 1 tablet by mouth every 6 hours as needed OXYCODONE-ACETAMINOPHEN 33982506651 No Longer Active Checo Conklin MD Active PYRIDIUM 200 MG TABS take 1 tab po TID prn urinary pain. 0 PHENAZOPYRIDINE HCL 91209898153 No Longer Active Checo Conklin MD Active FLUCONAZOLE 150 MG TABS take 1 tab po qday once 04/06 FLUCONAZOLE 71312300699 No Longer Active Dangelo Rangel MD Acti ve CIPRO 500 MG TAB 1 tablet by mouth twice daily CIPROFLOXACIN HCL 50376733303 No Longer Active Dangelo Rangel MD Active PYRIDIUM 200 MG TABS take 1 tab po TID prn urinary pain. 0 PYRIDIUM 200 MG TABS 5076269 PHENAZOPYRIDINE HCL Inactive PERCOCET 5-325 MG TABS 1 tablet by mouth every 6 hours as needed PERCOCET 5-325 MG TABS 4299996 OXYCODONE-ACETAMINOPHEN I nactive ZOFRAN ODT 4 MG TBDP 1 po q6hr PRN Nausea ZOFRAN ODT 4 MG TBDP 237849 ONDANSETRON Inactive FOCALIN XR 15 MG [id number] 1 po q a.m. F OCALIN XR 15 MG [id number] DEXMETHYLPHENIDATE HCL Inactive LORTAB 5 5-500 MG TABS 1/2 to 1 tablet by mouth flaquito ry 4 hours as needed for pain LORTAB 5 5-500 MG TABS HYDROCODONE-A CETAMINOPHEN Inactive PERCOCET 10-325 MG TABS 1 tablet every 6 hours as needed for pain PERCOCET 10-325 MG TABS 5607303 OXYCODONE-ACETAMINOPHEN Inactive FOCALIN XR 10 MG [id number] 1 po q a.m. F OCALIN XR 10 MG [id number] DEXMETHYLPHENIDATE HCL Inactive CEFDINIR 300 MG CAPS 1 po bid CEFDINIR 300 MG CAPS 20 0346 CEFDINIR Inactive ANTIPYRINE-BENZOCAINE 5.4-1.4 % SOLN 1-2 drops in affected ear ANTIPYRINE-BENZOCAINE 5.4-1.4 % SOLN 449080 BENZOCAINE-ANTIPYRINE I nactive FLONASE 50 MCG/ACT SUSP [...] PRN Insomnia TRAZODONE HCL 100 MG TAB 239857 TRAZODONE HCL Inactive CONCERTA 18 MG CR-TABS [...] s prn cough HYDROCODONE-ACETAMINOPHEN 5-325 MG TABS 021711 HYDROCODONE-ACETAMINOPHEN Inactive PHENAZOPYRIDINE HCL 200 MG TABS take 1 tab po TID for bladder pa in PHENAZOPYRIDINE HCL 200 MG TABS 7391727 PHENAZOPYRIDINE HCL Inactive HYDROCODONE-ACETAMINOPHEN 5-325 MG TABS 1 po q 6hr PRN Pain 2013 HYDROCODONE-ACETAMINOPHEN 5-325 MG TABS 399204 HYDROCODONE-ACETAMINOPHEN Inactive CELEXA 20 MG TABS 1 tablet by mouth daily CELEXA 20 MG TABS 361151 CITALOPRAM HYDROBROMIDE Inactive REGLAN 10 MG TAB 1 po TID PRN Nausea REGLAN 10 MG TAB 580659 METOCLOPRAMIDE HCL Inactive LAMISIL 250 MG TAB 1 po qd LAMISIL 250 MG TAB 361055 TERBINAFINE HCL Inactive DICLOFENAC SODIUM 75 MG TBEC 1 tablet by mouth twice daily P RN Knee pain DICLOFENAC SODIUM 75 MG TBEC 042271 DICLOFENAC S ODIUM Inactive METOCLOPRAMIDE HCL 10 MG ORAL TABS take one PO tid PRN nausea 20 29/12/14 METOCLOPRAMIDE HCL 10 MG ORAL TABS 070713 METOCLOPRAMID E HCL Inactive TERBINAFINE HCL 250 MG ORAL TABS take one table PO one time abran y TERBINAFINE HCL 250 MG ORAL TABS 338711 TERBINAFINE HCL Inactive BUPROPION HCL ER (SR) 100 MG ORAL [id number] take one t ablet by mouth one time daily for one week then take 1 two times daily BUPROPION HCL ER (SR) 100 MG ORAL [id number] BUPROPION HCL Inacti ve TRAVEL SICKNESS 25 MG ORAL CHEW chew and swallow one t ablet every 6 hours as needed TRAVEL SICKNESS 25 MG ORAL CHEW 814326 MECLIZINE HCL Inactive SUMATRIPTAN SUCCINATE 100 MG ORAL TABS Take one PRN for migrane SUMATRIPTAN SUCCINATE 100 MG ORAL TABS 535183 SUMATRIPT AN SUCCINATE Inactive COMPRO 25 MG RECTAL SUPP insert or apply one supposit ory rectally as directed every 12 hours as needed for nausea COMP RO 25 MG RECTAL SUPP 517388 PROCHLORPERAZINE Inactive ONDANSETRON [address] one tablet on tongue and allow to dissolve every 6 hours as needed for vomitting ON DANSETRON 8 MG ORAL TBDP 112324 ONDANSETRON Inactive HYDROCODONE-ACETAMINOPHEN 5-325 MG TABS 0.5 to 1 tab b y mouth every 6 hours as needed HYDROCODONE-ACETAMINOPHEN 5-325 MG TABS 8 58750 HYDROCODONE-ACETAMINOPHEN Inactive BACTRIM DS 800-160 MG TAB 1 tab by mouth twice daily 2 BACTRIM DS 800-160 MG TAB 19820918 TRIMETHOPRIM-SULFAMETHOXAZOLE Inac tive DIFLUCAN 150 MG TAB 1 tablet by mouth if needed, hold until symptoms start DIFLUCAN 150 MG TAB 19760325 FLUCONAZOLE Inactive IBUPROFEN 800 MG TABS 1 tab every 8 hours with food 20 31/03/21 IBUPROFEN 800 MG TABS 828390 IBUPROFEN Inactive HYDROCODONE-ACETAMINOPHEN 5-325 MG TABS 1 tab by mouth every 6 hours as needed HYDROCODONE-ACETAMINOPHEN 5-325 MG TABS 025307 HYDROCODONE-ACETAMINOPHEN Inactive BACTROBAN 2 % CREAM Apply to affected area BID for up to 10 days BACTROBAN 2 % CREAM 344157 MUPIROCIN CALCIUM Inactive MAGNESIUM CITRATE 1.745 GM/30ML ORAL SOLN 150ml po BID PRN C onstipation MAGNESIUM CITRATE 1.745 GM/30ML ORAL SOLN 572953 0 MAGNESIUM CITRATE Inactive DIFLUCAN 150 MG TAB 1 tablet by mouth qod DIFLUCAN 150 MG TAB 174974 FLUCONAZOLE Inactive BACTRIM DS 800-160 MG TAB 1 tab by mouth twice daily 2 BACTRIM DS 800-160 MG TAB 466982 TRIMETHOPRIM-SULFAMETHOXAZOLE Inac tive CIPRO 500 MG TAB 1 tablet by mouth twice daily CIPRO 500 MG TAB 335115 CIPROFLOXACIN HCL Inactive FLUCONAZOLE 150 MG TABS take 1 tab po qday once 04/06 FLUCONAZOLE 150 MG TABS 19760325 FLUCONAZOLE Inactive ZITHROMAX Z-KARTHIK 250 MG TABS 2 today, then 1 daily for 4 days 201 09/18/28 ZITHROMAX Z-KARTHIK 250 MG TABS 0899856 AZITHROMYCIN Inac tive PREDNISONE 20 MG TAB 2 tabs daily for 3 days, 1 t ab daily for 3 days, 1/2 tab daily for 2 days PREDNISONE 20 MG TAB 998124 PREDNISON E Inactive AZITHROMYCIN 250 MG TABS 2 po qd x 1 day, then 1 po qd x 4 days AZITHROMYCIN 250 MG TABS 4973650 AZITHROMYCIN Inactiv e PREDNISONE 20 MG TAB 2 tabs daily for 3 days, 1 t ab daily for 3 days, 1/2 tab daily for 2 days PREDNISONE 20 MG TAB 995484 PREDNISON E Inactive CEFDINIR 300 MG CAPS by mouth twice a day CEFDINIR 300 MG CAPS 722935 CEFDINIR Inactive TRIAMCINOLONE ACETONIDE 0.1 % OINT Apply to affected a reas TID for up to 2 weeks TRIAMCINOLONE ACETONIDE 0.1 % OINT 074890 6 TRIAMCINOLONE ACETONIDE Inactive PREDNISONE 20 MG TAB 2 tabs daily for 3 days, 1 t ab daily for 3 days, 1/2 tab daily for 2 days PREDNISONE 20 MG TAB 648959 PREDNISON E Inactive BACTRIM DS 800-160 MG TABS 1 po BID x 7 days 0 BACTRIM DS 800-160 MG TABS 616688 SULFAMETHOXAZOLE-TRIMETHOPRIM Inactive CIPRO 500 MG TAB 1 tablet by mouth twice daily CIPRO 500 MG TAB 738629 CIPROFLOXACIN HCL Inactive AZITHROMYCIN 250 MG TABS 2 po qd x 1 day, then 1 po qd x 4 days AZITHROMYCIN 250 MG TABS 5666516 AZITHROMYCIN Inactiv e FLAGYL 500 MG TAB 1 tablet by mouth bid FLAGYL 500 MG TAB 389349 METRONIDAZOLE Inactive AZITHROMYCIN 250 MG TABS 2 po qd x 1 day, then 1 po qd x 4 days AZITHROMYCIN 250 MG TABS 2619050 AZITHROMYCIN Inactiv e Immunizations Vaccine Administration Date [...] Report: CBC W/DIFF, Comp. Metabolic Panel, [place] [facility] [place] sodium, serum 139 mmol/L 969-345 8942/10/21 carbon dioxide, venous blood 33.5 mmol/L 21.0-32 [...] Report: CBC W/DIFF, Comp. Metabolic Panel, [place] [facility] [place] Hematology leukocyte count, [...] 248 10^3/MM^3 10*3/mm3 142-424 Lab Report: Chlamydia/GC [facility]/[id number] - Lab chlamydia DNA probe NOT DETECTED NOT DETECTED Lab Report: Chlamydia/[facility]/70788 - Microbiology Neisseria gonorrhoeae DNA probe NOT DETECTED NO T DETECTED Lab Report: Comp. Metabolic Panel, Lipid Panel, Thyroid Stimulating Horm ... - Chemistry protein, total urine random Negative mg/dL Negative RBC, urine, dipstick Negative Negative sodium, serum 141 mmol/L 598-126 0283/01/26 carbon dioxide, venous blood 30.0 mmol/L 21.0-32 .0 potassium, serum 4.0 mmol/L 3.5-5.2 chloride, serum 105 mmol/L 98-107 blood glucose 85 mg/dL 65-110 urea nitrogen, blood 9 mg/dL 7-18 creatinine, serum 0.66 mg/dL 0.55-1.30 alanine aminotransferase (SGPT), serum 31 U/L 12-78 aspartate aminotransferase (SGOT), serum 21 U/L 15-37 calcium, serum 8.2 mg/dL 8.5-10.1 bilirubin, serum, total 1.10 mg/dL 0.00-1.00 cholesterol, serum 178 mg/dL 289-528 4231/01/26 triglyceride, serum, fasting 149 mg/dL 30-200 HDL [...] ... - Chemistry sodium, serum 137 mmol/L 803-077 9919/05/27 carbon dioxide, venous blood 29.1 mmol/L 21.0-32 [...] 5.0-8.5 Encounters Code Encounter Date Provider Facility CPT-38132 Level 3 Est. Patient 09:11:49 CDT Efren almendarez APRN [facility] CPT-11302 Level 2 Est. Patient 19:53:27 CDT Tanner hill MD [facility] CPT-17426 Level 3 Est. Patient 09:15:34 CDT Efren Nicolas erickson [facility] CPT-22436 Level 3 Est. Patient 11:28:51 SHIP'S ENGINEER Efren almendarez [facility] CPT-42273 Level 4 Est. Patient 13:55:46 SHIP'S ENGINEER Checo Conklin MD [facility] CPT-57923 Level 4 Est. Patient 17:10:53 CDT Checo Conklin MD [facility] CPT-82206 Level 3 Est. Patient 15:56:22 CDT Checo Conklin MD [facility] CPT-28472 Level 3 Est. Patient 15:29:07 CDT Checo Conklin MD [facility] CPT-35376 Level 3 Est. Patient 14:38:41 CDT Checo Conklin MD [facility] CPT-35630 Level 3 Est. Patient 15:22:03 SHIP'S ENGINEER Thomas reynolds DO [facility] CPT-00974 Level 3 Est. Patient 13:34:17 SHIP'S ENGINEER Checo Conklin MD [facility] CPT-94999 Level 3 Est. Patient 12:29:32 CDT Dangelo arroyo MD [facility]-06876 Level 3 Est. Patient 16:53:02 CDT Checo Conklin MD [facility] CPT-13493 Level 3 Est. Patient 16:37:13 CDT Checo Conklin MD [facility] CPT-71568 Level 3 Est. Patient 16:16:59 CDT Paul Hamlin MD [facility]-71572 Level 3 Est. Patient 14:20:13 CDT Dangelo arroyo MD [facility] CPT-23459 Level 4 Est. Patient 11:29:33 CDT Checo Conklin MD [facility] CPT-92319 Level 3 Est. Patient 17:08:31 CDT Checo Conklin MD [facility] CPT-48871 Level 3 Est. Patient 16:50:42 SHIP'S ENGINEER Checo Conklin MD [facility] CPT-42195 Level 4 Est. Patient 09:26:08 SHIP'S ENGINEER Checo Conklin MD [facility] CPT-23738 Level 3 Est. Patient 11:37:10 CDT Checo Conklin MD [facility] CPT-42412 Level 4 Est. Patient 14:07:38 CDT Checo Conklin MD [facility] CPT-45767 Level 3 Est. Patient 09:54:41 CDT Checo Conklin MD [facility] CPT-49463 Level 3 Est. Patient 11:10:54 CDT Paul Hamlin MD [facility] CPT-63195 Level 3 Est. Patient 14:16:56 SHIP'S ENGINEER Checo Conklin MD [facility] CPT-19321 Level 3 Est. Patient 11:04:11 SHIP'S ENGINEER Checo Conklin MD [facility] CPT-49697 Level 3 Est. Patient 17:09:26 CDT Dangelo arroyo MD [facility] CPT-60966 Level 3 Est. Patient 16:54:37 CDT Checo Conklin MD [facility] Procedures Code Procedure Name Date Entry Date Standard Desc ription CPT-73027 UA w micro - LAB USE ONLY 17:06:46 CDT 2015 CPT-85843 [facility] Qual - LAB USE ONLY 17:06:46 CDT 05/06 CPT-87388 CMP - LAB USE ONLY 17:06:46 CDT CPT-88993 CBC with Diff - LAB USE ONLY 17:06:45 CDT 2 CPT-65253 Venipuncture Draw Fee 17:06:45 CDT CPT-LR Lesion Removal 19:53:27 CDT CPT-OV Office Visit 11:31:28 CDT CPT-73258 Tubersol 09:39:29 CDT CPT-J2550 Phenergan 25 mg (Promethazine) 13:59:02 SHIP'S ENGINEER CPT-J1885 Toradol 60 mg (Ketorolac) 13:59:02 SHIP'S ENGINEER 2012
--- OUTSIDE RECORDS SUMMARY | 2019-09-29 01:30 | XMS REPORT | Clinical Summary ---
Author Author Admin, Bethany Ayala [facility] Address Unknown Phone [...] edema 782.3 Active Checo Conklin MD Edema FH BREAST CANCER ICD-V16.3 [...] Inactive Checo Conklin MD Urinary frequency ICD-788.41 Ozzy Conklin MD Sinusitis, acute ICD-461.9 Inactive Checo Ortiz MD Repeated falls ICD-781.99 Ozzy ngo MD Abdominal pain, generalized ICD-789.07 Ozzy Conklin MD Nausea ICD-787.02 Ozzy Conklin MD 201 02/15/12 Medication List Medication Instructions Start Date Stop Date Generic Name NDC Status Provider Patient Instruction HYDROCHLOROTHIAZIDE 12.5 MG ORAL CAPSULE 1 po qd PRN Edema HYDROCHLOROTHIAZIDE [id number] Active Checo Conklin MD Ac tive IBUPROFEN 800 MG ORAL TABLET 1 tab every 8 hours as needed for p ain IBUPROFEN 54075011940 Active Dangelo Rangel MD Acti ve PAROXETINE HCL 40 MG ORAL TABLET 1 po qd PAR OXETINE HCL 82430187506 Active Checo Conklin MD Active MIRALAX ORAL POWDER 8.5 to 17g po qd PRN Constipation POLYETHYLENE GLYCOL 3350 19104249936 No Longer Active Checo Conklin MD Active PROTONIX 40 MG ORAL TABLET DELAYED RELEASE 1 pill by [facility] daily, for acid reflux PANTOPRAZOLE SODIUM 65267009492 No Longer Activ e Corry Méndez LPN Active FLAGYL 500 MG ORAL TABLET 1 tablet by mouth bid 08/29 METRONIDAZOLE 58320430404 No Longer Active Corry Méndez LPN Active CLARITHROMYCIN 500 MG ORAL TABLET 1 tab po BID x 14 days CLARITHROMYCIN 06644955098 No Longer Active Corry Méndez LPN Active AMOXICILLIN 500 MG ORAL CAPSULE 2 po BID x 14 days for [facility] AMOXICILLIN 12823616453 No Longer Active Corry Méndez LPN Active FLUTICASONE PROPIONATE 50 MCG/ACT NASAL SUSPENSION 2 s prays/nostril qd PRN Congestion/Allergies FLUTICASONE PROPIONATE 3277129958 9 No Longer Active Checo Conklin MD Active AMOXICILLIN 500 MG ORAL CAPSULE 2 po BID x 10 days 201 01/15/27 AMOXICILLIN 22939213455 No Longer Active Checo Conklin MD Activ e CLARITIN 10 MG ORAL TABLET 1 tablet by mouth daily as needed for allergies LORATADINE 33621324610 No Longer Active Checo Ortiz MD Active BACTRIM DS 800-160 MG ORAL TABLET 1 tab by mouth twice daily 201 12/19/26 TRIMETHOPRIM-SULFAMETHOXAZOLE 55696623466 No Longer Active S cott D Dobson MD Active DIFLUCAN 150 MG ORAL TABLET 1 tablet by mouth qod 2015 FLUCONAZOLE 56610416999 No Longer Active Efren Medel APRN Act mike AZITHROMYCIN 250 MG ORAL TABLET 2 po qd x 1 day, then 1 po q d x 4 days AZITHROMYCIN 61070104959 No Longer Active Efren flores PLATE SHEAR OPERATOR Active FLAGYL 500 MG ORAL TABLET 1 tablet by mouth bid 04/13 METRONIDAZOLE 74109029150 No Longer Active Checo Conklin MD Acti ve FOCALIN XR 10 MG ORAL CAPSULE EXTENDED RELEASE 24 HOUR 1 po q a.m. DEXMETHYLPHENIDATE HCL 09139020671 Active Checo Conklin MD Active MAGNESIUM CITRATE 1.745 GM/30ML ORAL SOLUTION 150ml po BID P RN Constipation MAGNESIUM CITRATE 76443714122 No Longer Active Checo Conklin MD Active BACTROBAN 2 % EXTERNAL CREAM Apply to affected area BID for up to 10 days MUPIROCIN CALCIUM 06205289422 No Longer Active Checo Conklin MD Active HYDROCODONE-ACETAMINOPHEN 5-325 MG ORAL TABLET 1 tab b y mouth every 6 hours as needed HYDROCODONE-ACETAMINOPHEN 65115774520 No Longer Active Checo Conklin MD Active IBUPROFEN 800 MG ORAL TABLET 1 tab every 8 hours with food 03/20 IBUPROFEN 70011593697 No Longer Active Checo Conklin MD Active DIFLUCAN 150 MG ORAL TABLET 1 tablet by mouth if neede d, hold until symptoms start FLUCONAZOLE 81644478240 No Longer Active Checo Conklin MD Active BACTRIM DS 800-160 MG ORAL TABLET 1 tab by mouth twice daily 201 11/23/03 TRIMETHOPRIM-SULFAMETHOXAZOLE 01899807698 No Longer Active Bonnie Méndez LPN Active HYDROCODONE-ACETAMINOPHEN 5-325 MG ORAL TABLET 0.5 to 1 tab by mouth every 6 hours as needed HYDROCODONE-ACETAMINOPHEN 34349069836 No Longer Active Checo Conklin MD Active ONDANSETRON 8 MG ORAL TABLET DISINTEGRATING place one tablet on tongue and allow to dissolve every 6 hours as needed for vomitting ONDANSETRON 20039735770 No Longer Active Checo Conklin MD Activ e COMPRO 25 MG RECTAL SUPPOSITORY insert or apply one garza ppository rectally as directed every 12 hours as needed for nausea PROCHLORPERAZINE 57019687062 No Longer Active Checo Conklin MD A ctive SUMATRIPTAN SUCCINATE 100 MG ORAL TABLET Take one PRN for migran e SUMATRIPTAN SUCCINATE 33377731785 No Longer Active Checo Conklin MD Active TRAVEL SICKNESS 25 MG ORAL TABLET CHEWABLE chew and sw allow one tablet every 6 hours as needed MECLIZINE HCL 05040488927 No Longer A ctive Checo Conklin MD Active BUPROPION HCL ER (SR) 100 MG ORAL TABLET EXTENDED RELE ASE 12 HOUR take one tablet by mouth one time daily for one week then take 1 two times daily BUPROPION HCL 05195529125 No Longer Active Checo gallagher MD Active TERBINAFINE HCL 250 MG ORAL TABLET take one table PO one time da moises TERBINAFINE HCL 86532955859 No Longer Active Checo Conklin MD Active METOCLOPRAMIDE HCL 10 MG ORAL TABLET take one PO tid PRN nausea METOCLOPRAMIDE HCL 86068863153 No Longer Active Checo Conklin MD Active DICLOFENAC SODIUM 75 MG ORAL TABLET DELAYED RELEASE 1 tablet by mouth twice daily PRN Knee pain DICLOFENAC SODIUM 32905159757 No Longer Active Checo Conklin MD Active LAMISIL 250 MG ORAL TABLET 1 po qd TERBINAFI NE HCL 05668734499 No Longer Active Checo Conklin MD Active REGLAN 10 MG ORAL TABLET 1 po TID PRN Nausea 3 METOCLOPRAMIDE HCL 36251754457 No Longer Active Checo Conklin MD Active CELEXA 20 MG ORAL TABLET 1 tablet by mouth daily 09/26 CITALOPRAM HYDROBROMIDE 72916560411 No Longer Active Checo Conklin MD Active AZITHROMYCIN 250 MG ORAL TABLET 2 po qd x 1 day, then 1 po q d x 4 days AZITHROMYCIN 97168814347 No Longer Active Checo Ortiz MD Active HYDROCODONE-ACETAMINOPHEN 5-325 MG ORAL TABLET 1 po q 6hr PRN Pa in HYDROCODONE-ACETAMINOPHEN 38680061770 No Longer Active Lenora Conklin MD Active PHENAZOPYRIDINE HCL 200 MG ORAL TABLET take 1 tab po TID for bladder pain PHENAZOPYRIDINE HCL 57580558207 No Longer Active Joe Conklin MD Active CIPRO 500 MG ORAL TABLET 1 tablet by mouth twice daily CIPROFLOXACIN HCL 22989807013 No Longer Active Dangelo Rangel MD Active HYDROCODONE-ACETAMINOPHEN 5-325 MG ORAL TABLET 1/2 to 1 po q 4 hours prn cough HYDROCODONE-ACETAMINOPHEN 26915542998 No Longer Activ e Dangelo Rangel MD Active BACTRIM DS 800-160 MG ORAL TABLET 1 po BID x 7 days 29/04/10 SULFAMETHOXAZOLE-TRIMETHOPRIM 14765347231 No Longer Active Checo Conklin MD Active PREDNISONE 20 MG ORAL TABLET 2 tabs daily for 3 days, 1 tab daily for 3 days, 1/2 tab daily for 2 days PREDNISONE 27080133524 No Longer Active Checo Conklin MD Active TRIAMCINOLONE ACETONIDE 0.1 % EXTERNAL OINTMENT Apply to affected areas TID for up to 2 weeks TRIAMCINOLONE ACETONIDE 44657391145 No Longer Active Checo Conklin MD Active CEFDINIR 300 MG ORAL CAPSULE by mouth twice a day 2013 CEFDINIR 50056431029 No Longer Active Dangelo Rangel MD Acti ve BUPROPION HCL ER (SMOKING DET) 150 MG ORAL TABLET EXTE NDED RELEASE 12 HOUR 1 a day for 1 week then 1 twice a day BUPROPION HCL (SMOKING DETER) 77401615202 No Longer Active Checo Conklin MD Active SIMVASTATIN 20 MG ORAL TABLET 1 po qd SIMVASTAT IN 62137122816 Active Checo Conklin MD Active CHANTIX STARTING MONTH KARTHIK 0.5 MG X 11 & 1 MG X 42 ORA L TABLET 0.5mg daily for 3 days, then 0.5mg BID for 4 days, then 1mg BID VARENICLINE TARTRATE 67176597810 No Longer Active Checo Conklin MD Activ e XANAX 0.5 MG ORAL TABLET 1 po BID PRN anxiety A LPRAZOLAM 78431183780 Active Checo Conklin MD Active CONCERTA 18 MG ORAL TABLET EXTENDED RELEASE 1 po q a.m. METHYLPHENIDATE HCL 76722451734 No Longer Active Checo Conklin MD Active AMBIEN 5 MG ORAL TABLET 1 po qHS PRN Insomnia Z OLPIDEM TARTRATE 22753456367 Active Checo Conklin MD Active TRAZODONE HCL 100 MG ORAL TABLET 0.5 to 1 po qHS PRN Insomnia 20 30/07/08 TRAZODONE HCL 80248291233 No Longer Active Checo Conklin MD Active FIORICET 325-50-40 MG TAB 1 tablet by mouth four times daily as needed [id number] 37065981818 No Longer Active Checo Conklin MD Active PHENERGAN CREAM* 25mg applied to wrist q6hr PRN Nausea PHENERGAN CREAM* No Longer Active Checo Gonzales ctive FLONASE 50 MCG/ACT NASAL SUSPENSION 1 spray each nostril am and hs FLUTICASONE PROPIONATE 96902991300 No Longer Active Checo Conklin MD Active ANTIPYRINE-BENZOCAINE 5.4-1.4 % OTIC SOLUTION 1-2 drops in affec yohannes ear BENZOCAINE-ANTIPYRINE 34499768406 No Longer Active Checo Conklin MD Active CEFDINIR 300 MG ORAL CAPSULE 1 po bid CEFDINIR 93526005859 No Longer Active Checo Conklin MD Active PREDNISONE 20 MG ORAL TABLET 2 tabs daily for 3 days, 1 tab daily for 3 days, 1/2 tab daily for 2 days PREDNISONE 32922991321 No Longer Active Checo Conklin MD Active AZITHROMYCIN 250 MG ORAL TABLET 2 po qd x 1 day, then 1 po q d x 4 days AZITHROMYCIN 50331646255 No Longer Active Checo Ortiz MD Active PREDNISONE 20 MG ORAL TABLET 2 tabs daily for 3 days, 1 tab daily for 3 days, 1/2 tab daily for 2 days PREDNISONE 33219718865 No Longer Active Checo Conklin MD Active ZITHROMAX Z-KARTHIK 250 MG ORAL TABLET 2 today, then 1 daily for 4 d ays AZITHROMYCIN 38951356068 No Longer Active Paul Hamlin MD Active FOCALIN XR 10 MG ORAL CAPSULE EXTENDED RELEASE 24 HOUR 1 po q a. m. DEXMETHYLPHENIDATE HCL 71902052707 No Longer Active Paul Hamlin MD Active PERCOCET 10-325 MG ORAL TABLET 1 tablet every 6 hours as needed for pain OXYCODONE-ACETAMINOPHEN 00165261131 No Longer Active Paul Hamlin MD Active LORTAB 5-500 MG ORAL TABLET 1/2 to 1 tablet by mouth e very 4 hours as needed for pain HYDROCODONE-ACETAMINOPHEN 80027368565 No Longer Active Checo Conklin MD Active FOCALIN XR 15 MG ORAL CAPSULE EXTENDED RELEASE 24 HOUR 1 po q a. m. DEXMETHYLPHENIDATE HCL 07490604155 No Longer Active Checo Conklin MD Active ZOFRAN ODT 4 MG ORAL TABLET DISINTEGRATING 1 po q6hr PRN Nausea ONDANSETRON 05568278424 No Longer Active Checo Conklin MD Active PERCOCET 5-325 MG ORAL TABLET 1 tablet by mouth every 6 hour s as needed OXYCODONE-ACETAMINOPHEN 78276817998 No Longer Active Checo Conklin MD Active PYRIDIUM 200 MG ORAL TABLET take 1 tab po TID prn urinary pain. PHENAZOPYRIDINE HCL 65281869069 No Longer Active Checo Joshua Active FLUCONAZOLE 150 MG ORAL TABLET take 1 tab po qday once FLUCONAZOLE 67856364375 No Longer Active Dangelo Rangel MD Acti ve CIPRO 500 MG ORAL TABLET 1 tablet by mouth twice daily CIPROFLOXACIN HCL 27325876079 No Longer Active Dangelo Rangel MD Active PYRIDIUM 200 MG ORAL TABLET take 1 tab po TID prn urinary pain. PYRIDIUM 200 MG ORAL TABLET 8977328 PHENAZOPYRIDINE HCL Inactive PERCOCET 5-325 MG ORAL TABLET 1 tablet by mouth every 6 hour s as needed PERCOCET 5-325 MG ORAL TABLET 0904994 OXYCODONE-ACETAMINOPHEN Inactive ZOFRAN ODT 4 MG ORAL TABLET DISINTEGRATING 1 po q6hr PRN Nausea ZOFRAN ODT 4 MG ORAL TABLET DISINTEGRATING 668858 ONDAN SETRON Inactive FOCALIN XR 15 MG [...] for pain PERCOCET 10-325 MG ORAL TABLET 3969183 OXYCODONE-ACETAMI NOPHEN Inactive FOCALIN XR 10 MG ORAL CAPSULE EXTENDED RELEASE 24 HOUR 1 po q a. m. FOCALIN XR 10 MG ORAL CAPSULE EXTENDED RELEASE 24 HOUR DEXMETHYLPHENIDATE HCL Inactive CEFDINIR 300 MG ORAL CAPSULE 1 po bid CEFDINI R 300 MG ORAL CAPSULE 710169 CEFDINIR Inactive ANTIPYRINE-BENZOCAINE 5.4-1.4 % OTIC SOLUTION 1-2 drops in affec yohannes ear ANTIPYRINE-BENZOCAINE 5.4-1.4 % OTIC SOLUTION BENZOCAINE-ANTIPYRINE Inactive FLONASE 50 MCG/ACT NASAL SUSPENSION 1 spray each nostril am and hs FLONASE 50 MCG/ACT NASAL SUSPENSION 7725639 FLUTICASONE PROPIONATE I nactive PHENERGAN CREAM* 25mg applied to wrist q6hr PRN Nausea PHENERGAN CREAM* Inactive FIORICET 325-50-40 MG TAB 1 tablet by mouth four times daily as needed FIORICET 325-50-40 MG TAB ACETAMINOPHEN-C AFF-BUTALBITAL Inactive TRAZODONE HCL 100 MG ORAL TABLET 0.5 to 1 po qHS PRN Insomnia 20 30/07/08 TRAZODONE HCL 100 MG ORAL TABLET 626564 TRAZODONE HCL Inactive CONCERTA 18 MG ORAL [...] cough HYDROCODONE-ACETAMINOPHEN 5-325 MG ORAL TABLET 8 14598 HYDROCODONE-ACETAMINOPHEN Inactive PHENAZOPYRIDINE HCL 200 MG ORAL TABLET take 1 tab po TID for bladder pain PHENAZOPYRIDINE HCL 200 MG ORAL TABLET 8965240 PHENAZOPYRIDINE HCL Inactive HYDROCODONE-ACETAMINOPHEN 5-325 MG ORAL TABLET 1 po q 6hr PRN Pa in HYDROCODONE-ACETAMINOPHEN 5-325 MG ORAL TABLET 309008 HYDROCODONE-ACETAMINOPHEN Inactive CELEXA 20 MG ORAL TABLET 1 tablet by mouth daily 09/26 CELEXA 20 MG ORAL TABLET 269619 CITALOPRAM HYDROBROMIDE Inactive REGLAN 10 MG ORAL TABLET 1 po TID PRN Nausea 3 REGLAN 10 MG ORAL TABLET 919598 METOCLOPRAMIDE HCL Inactive LAMISIL 250 MG ORAL TABLET 1 po qd L AMISIL 250 MG ORAL TABLET 337569 TERBINAFINE HCL Inactive DICLOFENAC SODIUM 75 MG ORAL TABLET DELAYED RELEASE 1 tablet by mouth twice daily PRN Knee pain DICLOFENAC SODIUM 75 MG ORAL TABLET DELAYED RELEASE 691924 DICLOFENAC SODIUM Inactive METOCLOPRAMIDE HCL 10 MG ORAL TABLET take one PO tid PRN nausea METOCLOPRAMIDE HCL 10 MG ORAL TABLET 575636 METOCLOPRAM ZACH HCL Inactive TERBINAFINE HCL 250 MG ORAL TABLET take one table PO one time da moises TERBINAFINE HCL 250 MG ORAL TABLET 925044 TERBINAFINE H CL Inactive BUPROPION HCL ER [...] SICKNESS 25 M G ORAL TABLET CHEWABLE 769000 MECLIZINE HCL Inactive SUMATRIPTAN SUCCINATE 100 MG ORAL TABLET Take one PRN for migran e SUMATRIPTAN SUCCINATE 100 MG ORAL TABLET 324139 SUMATRIPTAN SUCCINATE Inactive COMPRO 25 MG RECTAL SUPPOSITORY insert or apply one garza ppository rectally as directed every 12 hours as needed for nausea COMPRO 25 MG RECTAL SUPPOSITORY 972913 PROCHLORPERAZINE Inactive ONDANSETRON 8 MG ORAL TABLET DISINTEGRATING place one tablet on tongue and allow to dissolve every 6 hours as needed for vomitting ONDANSETRON 8 MG ORAL TABLET DISINTEGRATING 081307 ONDANSETRON Inactive HYDROCODONE-ACETAMINOPHEN 5-325 MG ORAL TABLET 0.5 to 1 tab by mouth every 6 hours as needed HYDROCODONE-ACETAMIN OPHEN 5-325 MG ORAL TABLET 625671 HYDROCODONE-ACETAMINOPHEN Inactive BACTRIM DS 800-160 MG ORAL TABLET 1 tab by mouth twice daily 201 11/23/03 BACTRIM DS 800-160 MG ORAL TABLET 465072 TRIMETHOPRIM-SULFAMETHOXAZOLE Inactive DIFLUCAN 150 MG ORAL TABLET 1 tablet by mouth if neede d, hold until symptoms start DIFLUCAN 150 MG ORAL TABLET 768471 FLUCONAZ OLE Inactive IBUPROFEN 800 MG ORAL TABLET 1 tab every 8 hours with food 03/20 IBUPROFEN 800 MG ORAL TABLET 868227 IBUPROFEN Krupa ctive HYDROCODONE-ACETAMINOPHEN 5-325 MG ORAL TABLET 1 tab b y mouth every 6 hours as needed HYDROCODONE-ACETAMINOPHEN 5-325 MG ORAL TABLET 307100 HYDROCODONE-ACETAMINOPHEN Inactive BACTROBAN 2 % EXTERNAL CREAM Apply to affected area BID for up to 10 days BACTROBAN 2 % EXTERNAL CREAM 760295 MUPIROCIN CA LCIUM Inactive MAGNESIUM CITRATE 1.745 GM/30ML ORAL SOLUTION 150ml po BID P RN Constipation MAGNESIUM CITRATE 1.745 GM/30ML ORAL SOLUTION 10 87998 MAGNESIUM CITRATE Inactive DIFLUCAN 150 MG ORAL TABLET 1 tablet by mouth qod 2015 DIFLUCAN 150 MG ORAL TABLET 664851 FLUCONAZOLE Inactive BACTRIM DS 800-160 MG ORAL TABLET 1 tab by mouth twice daily 201 12/19/26 BACTRIM DS 800-160 MG ORAL TABLET 343152 TRIMETHOPRIM-SULFAMETHOXAZOLE Inactive CLARITIN 10 MG ORAL TABLET 1 tablet by mouth daily as needed for allergies CLARITIN 10 MG ORAL TABLET 272171 LORATADINE I nactive FLUTICASONE PROPIONATE 50 MCG/ACT NASAL SUSPENSION 2 s prays/nostril qd PRN Congestion/Allergies FLUTICASONE PROPION ATE 50 MCG/ACT NASAL SUSPENSION 7080246 FLUTICASONE PROPIONATE Inactive MIRALAX ORAL POWDER 8.5 to 17g po qd PRN Constipation MIRALAX ORAL POWDER 827020 POLYETHYLENE GLYCOL 3350 Inactive CIPRO 500 MG ORAL TABLET 1 tablet by mouth twice daily CIPRO 500 MG ORAL TABLET 295836 CIPROFLOXACIN HCL Inactive FLUCONAZOLE 150 MG ORAL TABLET take 1 tab po qday once FLUCONAZOLE 150 MG ORAL TABLET 505238 FLUCONAZOLE Inactive ZITHROMAX Z-KARTHIK 250 MG ORAL TABLET 2 today, then 1 daily for 4 d ays ZITHROMAX Z-KARTHIK 250 MG ORAL TABLET 051220 AZITHROMYCIN Inactive PREDNISONE 20 MG ORAL TABLET 2 tabs daily for 3 days, 1 tab daily for 3 days, 1/2 tab daily for 2 days PREDNISONE 20 MG ORAL T ABLET 948029 PREDNISONE Inactive AZITHROMYCIN 250 MG ORAL TABLET 2 po qd x 1 day, then 1 po q d x 4 days AZITHROMYCIN 250 MG ORAL TABLET 644064 AZITHROMY SPARKLE Inactive PREDNISONE 20 MG ORAL TABLET 2 tabs daily for 3 days, 1 tab daily for 3 days, 1/2 tab daily for 2 days PREDNISONE 20 MG ORAL TABLET 808168 PREDNISONE Inactive CEFDINIR 300 MG ORAL CAPSULE by mouth twice a day 2013 CEFDINIR 300 MG ORAL CAPSULE 607331 CEFDINIR Inactive TRIAMCINOLONE ACETONIDE 0.1 % EXTERNAL OINTMENT Apply to affected areas TID for up to 2 weeks TRIAMCINOLONE ACETON ZACH 0.1 % EXTERNAL OINTMENT 7045826 TRIAMCINOLONE ACETONIDE Inactive PREDNISONE 20 MG ORAL TABLET 2 tabs daily for 3 days, 1 tab daily for 3 days, 1/2 tab daily for 2 days PREDNISONE 20 MG ORAL T ABLET 285088 PREDNISONE Inactive BACTRIM DS 800-160 MG ORAL TABLET 1 po BID x 7 days 29/04/10 BACTRIM DS 800-160 MG ORAL TABLET 724466 SULFAMETHOXAZOLE-TRIMETHOP RIM Inactive CIPRO 500 MG ORAL TABLET 1 tablet by mouth twice daily CIPRO 500 MG ORAL TABLET 767707 CIPROFLOXACIN HCL Inactive AZITHROMYCIN 250 MG ORAL TABLET 2 po qd x 1 day, then 1 po q d x 4 days AZITHROMYCIN 250 MG ORAL TABLET 009757 AZITHROMY SPARKLE Inactive FLAGYL 500 MG ORAL TABLET 1 tablet by mouth bid 04/13 FLAGYL 500 MG ORAL TABLET 014698 METRONIDAZOLE Inactive AZITHROMYCIN 250 MG ORAL TABLET 2 po qd x 1 day, then 1 po q d x 4 days AZITHROMYCIN 250 MG ORAL TABLET 497063 AZITHROMY SPARKLE Inactive AMOXICILLIN 500 MG ORAL CAPSULE 2 po BID x 10 days 201 01/15/27 AMOXICILLIN 500 MG ORAL CAPSULE 742717 AMOXICILLIN Inactive AMOXICILLIN 500 MG ORAL CAPSULE 2 po BID x 14 days for [facility]. Pylori AMOXICILLIN 500 MG ORAL CAPSULE 232505 AMOXICILLIN Inactive CLARITHROMYCIN 500 MG ORAL TABLET 1 tab po BID x 14 days CLARITHROMYCIN 500 MG ORAL TABLET 787304 CLARITHROMYCIN Inacti ve FLAGYL 500 MG ORAL TABLET 1 tablet by mouth bid 08/29 FLAGYL 500 MG ORAL TABLET 300049 METRONIDAZOLE Inactive PROTONIX 40 MG ORAL TABLET DELAYED RELEASE 1 pill by m outh daily, for acid reflux PROTONIX 40 MG ORAL TABLET DELAYED RELEAS E 476179 PANTOPRAZOLE SODIUM Inactive Immunizations Vaccine Administration Date [...] ... - Chemistry sodium, serum 138 mmol/L 759-343 2394/06/27 carbon dioxide, venous blood 30.3 mmol/L 21.0-32 [...] dipstick 1+ Negative sodium, serum 139 mmol/L 278-881 4377/11/28 carbon dioxide, venous blood 26.0 mmol/L 21.0-32 [...] Negative Encounters Code Encounter Date Provider Facility CPT-76342 Level 4 Est. Patient 11:08:43 CDT Checo Conklin MD [facility] CPT-79362 [id number] Vst-Est Level III 09:37:41 CDT Dangelo Rangel MD [facility] CPT-94960 Level 4 Est. Patient 08:57:51 [employer]LOMA PHARMACY TECHNICIAN Checo Conklin MD [facility] CPT-75078 Level 3 Est. Patient 11:24:55 DIPLOMA PHARMACY TECHNICIAN Efren almendarez [facility] CPT-08199 Level 3 Est. Patient 13:05:44 CDT Paul Hamlin MD [facility] CPT-70037 Level 3 Est. Patient 11:29:55 CDT Checo Conklin MD [facility] CPT-36072 Level 4 Est. Patient 11:08:12 DIPLOMA PHARMACY TECHNICIAN Checo Conklin MD [facility] CPT-28899 Level 4 Est. Patient 16:06:48 DIPLOMA PHARMACY TECHNICIAN Checo Conklin MD [facility] CPT-06329 Level 3 Est. Patient 09:11:49 CDT Efren almendarez [facility] CPT-36893 Level 2 Est. Patient 19:53:27 CDT Tanner hill MD [facility] CPT-61036 Level 3 Est. Patient 09:15:34 CDT Efren almendarez [facility] CPT-77054 Level 3 Est. Patient 11:28:51 DIPLOMA PHARMACY TECHNICIAN Efren almendarez [facility] CPT-79209 Level 4 Est. Patient 13:55:46 DIPLOMA PHARMACY TECHNICIAN Checo Conklin MD [facility] CPT-90883 Level 4 Est. Patient 17:10:53 CDT Checo Conklin MD [facility] CPT-63918 Level 3 Est. Patient 15:56:22 CDT Checo Conklin MD [facility] CPT-43556 Level 3 Est. Patient 15:29:07 CDT Checo Conklin MD [facility] CPT-70203 Level 3 Est. Patient 14:38:41 CDT Checo Conklin MD [facility] CPT-44607 Level 3 Est. Patient 15:22:03 DIPLOMA PHARMACY TECHNICIAN Thomas reynolds DO [facility] CPT-89087 Level 3 Est. Patient 13:34:17 DIPLOMA PHARMACY TECHNICIAN Checo Conklin MD [facility] CPT-38553 Level 3 Est. Patient 12:29:32 CDT Dangelo arroyo MD [facility] CPT-73355 Level 3 Est. Patient 16:53:02 CDT Checo Conklin MD [facility] CPT-88336 Level 3 Est. Patient 16:37:13 CDT Checo Conklin MD [facility] CPT-56233 Level 3 Est. Patient 16:16:59 CDT Paul Hamlin MD [facility] CPT-87314 Level 3 Est. Patient 14:20:13 CDT Dangelo arroyo MD [facility] CPT-00210 Level 4 Est. Patient 11:29:33 CDT Checo Conklin MD [facility] CPT-06051 Level 3 Est. Patient 17:08:31 CDT Checo Conklin MD [facility] CPT-30978 Level 3 Est. Patient 16:50:42 DIPLOMA PHARMACY TECHNICIAN Checo Conklin MD [facility] CPT-45020 Level 4 Est. Patient 09:26:08 DIPLOMA PHARMACY TECHNICIAN Checo Conklin MD [facility] CPT-37252 Level 3 Est. Patient 11:37:10 CDT Checo Conklin MD [facility] CPT-45952 Level 4 Est. Patient 14:07:38 CDT Checo Conklin MD [facility] CPT-85570 Level 3 Est. Patient 09:54:41 CDT Checo Conklin MD [facility] CPT-88855 Level 3 Est. Patient 11:10:54 CDT Paul Hamlin MD [facility] CPT-91176 Level 3 Est. Patient 14:16:56 DIPLOMA PHARMACY TECHNICIAN Checo Conklin MD [facility] CPT-61425 Level 3 Est. Patient 11:04:11 DIPLOMA PHARMACY TECHNICIAN Checo Conklin MD [facility] CPT-61851 Level 3 Est. Patient 17:09:26 CDT Dangelo arroyo MD [facility] CPT-17204 Level 3 Est. Patient 16:54:37 CDT Checo Conklin MD [facility] Procedures Code Procedure Name Date Entry Date Standard Desc ription CPT-88177 Wrist, right, comp 3V - XRAY USE ONLY 09:24:31 CDT CPT-75139 Abd compl w upright - XRAY USE ONLY 1 1:36:54 DIPLOMA PHARMACY TECHNICIAN CPT-46765 UA w micro - LAB USE ONLY 17:06:46 CDT 2015 CPT-32409 [facility] Qual - LAB USE ONLY 17:06:46 CDT 05/06 CPT-04068 CMP - LAB USE ONLY 17:06:46 CDT CPT-77632 CBC with Diff - LAB USE ONLY 17:06:45 CDT 2 CPT-87730 Venipuncture Draw Fee 17:06:45 CDT CPT-LR Lesion Removal 19:53:27 CDT CPT-OV Office Visit 11:31:28 CDT CPT-94906 Tubersol 09:39:29 CDT CPT-J2550 Phenergan 25 mg (Promethazine) 13:59:02 DIPLOMA PHARMACY TECHNICIAN CPT-J1885 Toradol 60 mg (Ketorolac) 13:59:02 DIPLOMA PHARMACY TECHNICIAN 2012
--- OUTSIDE RECORDS SUMMARY | 2019-09-29 01:30 | XMS REPORT | Clinical Summary ---
Author Author Admin, Bethany Gonzales Organization [facility] Address Unknown Phone Unavailable Allergies, Adverse Reactions, [...] Abscess, skin ICD-682.9 Inactive Checo richey MD Pharyngitis ICD-462 Inactive Checo Conklin MD [...] Inactive Checo Conklin MD Repeated falls ICD-781.99 Ozzy ngo MD Medication List Medication Instructions Start Date Stop Date Generic Name NDC Status Provider Patient Instruction PAROXETINE HCL 40 MG ORAL TABLET 1 po qd PAR OXETINE HCL [id number] Active Checo Conklin MD Active MIRALAX ORAL POWDER 8.5 to 17g po qd PRN Constipation POLYETHYLENE GLYCOL 3350 [id number] No Longer Active Checo Conklin MD Active PROTONIX 40 MG ORAL TABLET DELAYED RELEASE 1 pill by m outh daily, for acid reflux PANTOPRAZOLE SODIUM 26814786282 No Longer Activ e Corry Méndez LPN Active FLAGYL 500 MG ORAL TABLET 1 tablet by mouth bid 08/29 METRONIDAZOLE 62143363726 No Longer Active Corry Méndez LPN Active CLARITHROMYCIN 500 MG ORAL TABLET 1 tab po BID x 14 days CLARITHROMYCIN 94261687879 No Longer Active Corry Méndez LPN Active AMOXICILLIN 500 MG ORAL CAPSULE 2 po BID x 14 days for H. Pylori AMOXICILLIN 35228174918 No Longer Active Corry Méndez LPN Active FLUTICASONE PROPIONATE 50 MCG/ACT NASAL SUSPENSION 2 s prays/nostril qd PRN Congestion/Allergies FLUTICASONE PROPIONATE 6504831832 9 No Longer Active Checo Conklin MD Active AMOXICILLIN 500 MG ORAL CAPSULE 2 po BID x 10 days 201 01/15/27 AMOXICILLIN 57882252102 No Longer Active Checo Conklin MD Activ e CLARITIN 10 MG ORAL TABLET 1 tablet by mouth daily as needed for allergies LORATADINE 87752590446 No Longer Active Checo Ortiz MD Active BACTRIM DS 800-160 MG ORAL TABLET 1 tab by mouth twice daily 201 12/19/26 TRIMETHOPRIM-SULFAMETHOXAZOLE 62708524175 No Longer Active Ragini Carrillo MD Active DIFLUCAN 150 MG ORAL TABLET 1 tablet by mouth qod 2015 FLUCONAZOLE 34661302097 No Longer Active Efren Medel APRN Act mike AZITHROMYCIN 250 MG ORAL TABLET 2 po qd x 1 day, then 1 po q d x 4 days AZITHROMYCIN 54804321481 No Longer Active Efren flores APRN Active FLAGYL 500 MG ORAL TABLET 1 tablet by mouth bid 04/13 METRONIDAZOLE 78827326587 No Longer Active Checo Conklin MD Acti ve FOCALIN XR 10 MG ORAL CAPSULE EXTENDED RELEASE 24 HOUR 1 po q a.m. DEXMETHYLPHENIDATE HCL 71482922709 Active Checo Conklin MD Active MAGNESIUM CITRATE 1.745 GM/30ML ORAL SOLUTION 150ml po BID P RN Constipation MAGNESIUM CITRATE 95954513325 No Longer Active Checo Conklin MD Active BACTROBAN 2 % EXTERNAL CREAM Apply to affected area BID for up to 10 days MUPIROCIN CALCIUM 69670869514 No Longer Active Checo Conklin MD Active HYDROCODONE-ACETAMINOPHEN 5-325 MG ORAL TABLET 1 tab b y mouth every 6 hours as needed HYDROCODONE-ACETAMINOPHEN 83083997036 No Longer Active Checo Conklin MD Active IBUPROFEN 800 MG ORAL TABLET 1 tab every 8 hours with food 03/20 IBUPROFEN 30675231008 No Longer Active Checo Conklin MD Active DIFLUCAN 150 MG ORAL TABLET 1 tablet by mouth if neede d, hold until symptoms start FLUCONAZOLE 06261966051 No Longer Active Checo Conklin MD Active BACTRIM DS 800-160 MG ORAL TABLET 1 tab by mouth twice daily 201 11/23/03 TRIMETHOPRIM-SULFAMETHOXAZOLE 41639070300 No Longer Active K bernice Méndez, MORTGAGE COUNSELOR Active HYDROCODONE-ACETAMINOPHEN 5-325 MG ORAL TABLET 0.5 to 1 tab by mouth every 6 hours as needed HYDROCODONE-ACETAMINOPHEN 26434276583 No Longer Active Checo Conklin MD Active ONDANSETRON 8 MG ORAL TABLET DISINTEGRATING place one tablet on tongue and allow to dissolve every 6 hours as needed for vomitting ONDANSETRON 69725198742 No Longer Active Checo Conklin MD Activ e COMPRO 25 MG RECTAL SUPPOSITORY insert or apply one garza ppository rectally as directed every 12 hours as needed for nausea PROCHLORPERAZINE 25119938641 No Longer Active Checo Conklin MD A ctive SUMATRIPTAN SUCCINATE 100 MG ORAL TABLET Take one PRN for migran e SUMATRIPTAN SUCCINATE 81366990131 No Longer Active Checo Conklin MD Active TRAVEL SICKNESS 25 MG ORAL TABLET CHEWABLE chew and sw allow one tablet every 6 hours as needed MECLIZINE HCL 20529649381 No Longer A ctive Checo Conklin MD Active BUPROPION HCL ER (SR) 100 MG ORAL TABLET EXTENDED RELE ASE 12 HOUR take one tablet by mouth one time daily for one week then take 1 two times daily BUPROPION HCL 76343550007 No Longer Active Checo gallagher MD Active TERBINAFINE HCL 250 MG ORAL TABLET take one table PO one time da moises TERBINAFINE HCL 02655805489 No Longer Active Checo Conklin MD Active METOCLOPRAMIDE HCL 10 MG ORAL TABLET take one PO tid PRN nausea METOCLOPRAMIDE HCL 90118711694 No Longer Active Checo Conklin MD Active DICLOFENAC SODIUM 75 MG ORAL TABLET DELAYED RELEASE 1 tablet by mouth twice daily PRN Knee pain DICLOFENAC SODIUM 64940485279 No Longer Active Checo Conklin MD Active LAMISIL 250 MG ORAL TABLET 1 po qd TERBINAFI NE HCL 44728999364 No Longer Active Checo Conklin MD Active REGLAN 10 MG ORAL TABLET 1 po TID PRN Nausea 3 METOCLOPRAMIDE HCL 03041596586 No Longer Active Checo Conklin MD Active CELEXA 20 MG ORAL TABLET 1 tablet by mouth daily 09/26 CITALOPRAM HYDROBROMIDE 74857102278 No Longer Active Checo Conklin MD Active AZITHROMYCIN 250 MG ORAL TABLET 2 po qd x 1 day, then 1 po q d x 4 days AZITHROMYCIN 46603224243 No Longer Active Checo Ortiz MD Active HYDROCODONE-ACETAMINOPHEN 5-325 MG ORAL TABLET 1 po q 6hr PRN Pa in HYDROCODONE-ACETAMINOPHEN 23753352195 No Longer Active Lenora Conklin MD Active PHENAZOPYRIDINE HCL 200 MG ORAL TABLET take 1 tab po TID for bladder pain PHENAZOPYRIDINE HCL 56186783179 No Longer Active Joe Conklin MD Active CIPRO 500 MG ORAL TABLET 1 tablet by mouth twice daily CIPROFLOXACIN HCL 49869834089 No Longer Active Dangelo Rangel MD Active HYDROCODONE-ACETAMINOPHEN 5-325 MG ORAL TABLET 1/2 to 1 po q 4 hours prn cough HYDROCODONE-ACETAMINOPHEN 43000873760 No Longer Activ e Dangelo Rangel MD Active BACTRIM DS 800-160 MG ORAL TABLET 1 po BID x 7 days 29/04/10 SULFAMETHOXAZOLE-TRIMETHOPRIM 52214312901 No Longer Active Checo Conklin MD Active PREDNISONE 20 MG ORAL TABLET 2 tabs daily for 3 days, 1 tab daily for 3 days, 1/2 tab daily for 2 days PREDNISONE 14732778610 No Longer Active Checo Conklin MD Active TRIAMCINOLONE ACETONIDE 0.1 % EXTERNAL OINTMENT Apply to affected areas TID for up to 2 weeks TRIAMCINOLONE ACETONIDE 68804052761 No Longer Active Checo Conklin MD Active CEFDINIR 300 MG ORAL CAPSULE by mouth twice a day 2013 CEFDINIR 40017770970 No Longer Active Dangelo Rangel MD Acti ve BUPROPION HCL ER (SMOKING DET) 150 MG ORAL TABLET EXTE NDED RELEASE 12 HOUR 1 a day for 1 week then 1 twice a day BUPROPION HCL (SMOKING DETER) 58482901237 No Longer Active Checo Conklin MD Active SIMVASTATIN 20 MG ORAL TABLET 1 po qd SIMVASTAT IN 05204812058 Active Checo Conklin MD Active CHANTIX STARTING MONTH KARTHIK 0.5 MG X 11 & 1 MG X 42 ORA L TABLET 0.5mg daily for 3 days, then 0.5mg BID for 4 days, then 1mg BID VARENICLINE TARTRATE 26667852786 No Longer Active Checo Conklin MD Activ e XANAX 0.5 MG ORAL TABLET 1 po BID PRN anxiety A LPRAZOLAM 43969079499 Active Checo Conklin MD Active CONCERTA 18 MG ORAL TABLET EXTENDED RELEASE 1 po q a.m. METHYLPHENIDATE HCL 61601514688 No Longer Active Checo Conklin MD Active AMBIEN 5 MG ORAL TABLET 1 po qHS PRN Insomnia Z OLPIDEM TARTRATE 93821633193 Active Checo Conklin MD Active TRAZODONE HCL 100 MG ORAL TABLET 0.5 to 1 po qHS PRN Insomnia 20 30/07/08 TRAZODONE HCL 81479786848 No Longer Active Checo Conklin MD Active FIORICET 325-50-40 MG TAB 1 tablet by mouth four times daily as needed [id number] 47469104499 No Longer Active Checo Conklin MD Active PHENERGAN CREAM* 25mg applied to wrist q6hr PRN Nausea PHENERGAN CREAM* No Longer Active Checo Conklin MD A ctive FLONASE 50 MCG/ACT NASAL SUSPENSION 1 spray each nostril am and hs FLUTICASONE PROPIONATE 28524233583 No Longer Active Checo Conklin MD Active ANTIPYRINE-BENZOCAINE 5.4-1.4 % OTIC SOLUTION 1-2 drops in affec yohannes ear BENZOCAINE-ANTIPYRINE 18073418076 No Longer Active Checo Conklin MD Active CEFDINIR 300 MG ORAL CAPSULE 1 po bid CEFDINIR 85418215746 No Longer Active Checo Conklin MD Active PREDNISONE 20 MG ORAL TABLET 2 tabs daily for 3 days, 1 tab daily for 3 days, 1/2 tab daily for 2 days PREDNISONE 52776512999 No Longer Active Checo Conklin MD Active AZITHROMYCIN 250 MG ORAL TABLET 2 po qd x 1 day, then 1 po q d x 4 days AZITHROMYCIN 55132450530 No Longer Active Checo Ortiz MD Active PREDNISONE 20 MG ORAL TABLET 2 tabs daily for 3 days, 1 tab daily for 3 days, 1/2 tab daily for 2 days PREDNISONE 87772147882 No Longer Active Checo Conklin MD Active ZITHROMAX Z-KARTHIK 250 MG ORAL TABLET 2 today, then 1 daily for 4 d ays AZITHROMYCIN 06613070988 No Longer Active Paul Hamlin MD Active FOCALIN XR 10 MG ORAL CAPSULE EXTENDED RELEASE 24 HOUR 1 po q a. m. DEXMETHYLPHENIDATE HCL 22142309347 No Longer Active Paul Hamlin MD Active PERCOCET 10-325 MG ORAL TABLET 1 tablet every 6 hours as needed for pain OXYCODONE-ACETAMINOPHEN 01268802990 No Longer Active Paul Hamlin MD Active LORTAB 5-500 MG ORAL TABLET 1/2 to 1 tablet by mouth e very 4 hours as needed for pain HYDROCODONE-ACETAMINOPHEN 66260701678 No Longer Active Checo Conklin MD Active FOCALIN XR 15 MG ORAL CAPSULE EXTENDED RELEASE 24 HOUR 1 po q a. m. DEXMETHYLPHENIDATE HCL 78589664940 No Longer Active Checo Conklin MD Active ZOFRAN ODT 4 MG ORAL TABLET DISINTEGRATING 1 po q6hr PRN Nausea ONDANSETRON 05643587762 No Longer Active Checo Conklin MD Active PERCOCET 5-325 MG ORAL TABLET 1 tablet by mouth every 6 hour s as needed OXYCODONE-ACETAMINOPHEN 96978449844 No Longer Active Checo Conklin MD Active PYRIDIUM 200 MG ORAL TABLET take 1 tab po TID prn urinary pain. PHENAZOPYRIDINE HCL 84253027342 No Longer Active Checo Joshua Active FLUCONAZOLE 150 MG ORAL TABLET take 1 tab po qday once FLUCONAZOLE 39446998105 No Longer Active Dangelo Rangel MD Acti ve CIPRO 500 MG ORAL TABLET 1 tablet by mouth twice daily CIPROFLOXACIN HCL 84881905709 No Longer Active Dangelo Rangel MD Active PYRIDIUM 200 MG ORAL TABLET take 1 tab po TID prn urinary pain. PYRIDIUM 200 MG ORAL TABLET 4970825 PHENAZOPYRIDINE HCL Inactive PERCOCET 5-325 MG ORAL TABLET 1 tablet by mouth every 6 hour s as needed PERCOCET 5-325 MG ORAL TABLET 0982033 OXYCODONE-ACETAMINOPHEN Inactive ZOFRAN ODT 4 MG ORAL TABLET DISINTEGRATING 1 po q6hr PRN Nausea ZOFRAN ODT 4 MG ORAL TABLET DISINTEGRATING 818013 ONDAN SETRON Inactive FOCALIN XR 15 MG [...] for pain PERCOCET 10-325 MG ORAL TABLET 1482848 OXYCODONE-ACETAMI NOPHEN Inactive FOCALIN XR 10 MG ORAL CAPSULE EXTENDED RELEASE 24 HOUR 1 po q a. m. FOCALIN XR 10 MG ORAL CAPSULE EXTENDED RELEASE 24 HOUR DEXMETHYLPHENIDATE HCL Inactive CEFDINIR 300 MG ORAL CAPSULE 1 po bid CEFDINI R 300 MG ORAL CAPSULE 538751 CEFDINIR Inactive ANTIPYRINE-BENZOCAINE 5.4-1.4 % OTIC SOLUTION 1-2 drops in affec yohannes ear ANTIPYRINE-BENZOCAINE 5.4-1.4 % OTIC SOLUTION 976610 BENZOCAINE-ANTIPYRINE Inactive FLONASE 50 MCG/ACT NASAL SUSPENSION 1 spray each nostril am and hs FLONASE 50 MCG/ACT NASAL SUSPENSION 2545260 FLUTICASONE PROPIONATE I nactive PHENERGAN CREAM* 25mg applied to wrist q6hr PRN Nausea PHENERGAN CREAM* Inactive FIORICET 325-50-40 MG TAB 1 tablet by mouth four times daily as needed FIORICET 325-50-40 MG TAB ACETAMINOPHEN-C AFF-BUTALBITAL Inactive TRAZODONE HCL 100 MG ORAL TABLET 0.5 to 1 po qHS PRN Insomnia 20 30/07/08 TRAZODONE HCL 100 MG ORAL TABLET 041079 TRAZODONE HCL Inactive CONCERTA 18 MG ORAL [...] cough HYDROCODONE-ACETAMINOPHEN 5-325 MG ORAL TABLET 8 68833 HYDROCODONE-ACETAMINOPHEN Inactive PHENAZOPYRIDINE HCL 200 MG ORAL TABLET take 1 tab po TID for bladder pain PHENAZOPYRIDINE HCL 200 MG ORAL TABLET 3016995 PHENAZOPYRIDINE HCL Inactive HYDROCODONE-ACETAMINOPHEN 5-325 MG ORAL TABLET 1 po q 6hr PRN Pa in HYDROCODONE-ACETAMINOPHEN 5-325 MG ORAL TABLET 387083 HYDROCODONE-ACETAMINOPHEN Inactive CELEXA 20 MG ORAL TABLET 1 tablet by mouth daily 09/26 CELEXA 20 MG ORAL TABLET 610478 CITALOPRAM HYDROBROMIDE Inactive REGLAN 10 MG ORAL TABLET 1 po TID PRN Nausea 3 REGLAN 10 MG ORAL TABLET 731000 METOCLOPRAMIDE HCL Inactive LAMISIL 250 MG ORAL TABLET 1 po qd L AMISIL 250 MG ORAL TABLET 278642 TERBINAFINE HCL Inactive DICLOFENAC SODIUM 75 MG ORAL TABLET DELAYED RELEASE 1 tablet by mouth twice daily PRN Knee pain DICLOFENAC SODIUM 75 MG ORAL TABLET DELAYED RELEASE 583651 DICLOFENAC SODIUM Inactive METOCLOPRAMIDE HCL 10 MG ORAL TABLET take one PO tid PRN nausea METOCLOPRAMIDE HCL 10 MG ORAL TABLET 659035 METOCLOPRAM ZACH HCL Inactive TERBINAFINE HCL 250 MG ORAL TABLET take one table PO one time da moises TERBINAFINE HCL 250 MG ORAL TABLET 759930 TERBINAFINE H CL Inactive BUPROPION HCL ER [...] SICKNESS 25 M G ORAL TABLET CHEWABLE 739588 MECLIZINE HCL Inactive SUMATRIPTAN SUCCINATE 100 MG ORAL TABLET Take one PRN for migran e SUMATRIPTAN SUCCINATE 100 MG ORAL TABLET 466240 SUMATRIPTAN SUCCINATE Inactive COMPRO 25 MG RECTAL SUPPOSITORY insert or apply one garza ppository rectally as directed every 12 hours as needed for nausea COMPRO 25 MG RECTAL SUPPOSITORY 201295 PROCHLORPERAZINE Inactive ONDANSETRON 8 MG ORAL TABLET DISINTEGRATING place one tablet on tongue and allow to dissolve every 6 hours as needed for vomitting ONDANSETRON 8 MG ORAL TABLET DISINTEGRATING 632446 ONDANSETRON Inactive HYDROCODONE-ACETAMINOPHEN 5-325 MG ORAL TABLET 0.5 to 1 tab by mouth every 6 hours as needed HYDROCODONE-ACETAMIN OPHEN 5-325 MG ORAL TABLET 733650 HYDROCODONE-ACETAMINOPHEN Inactive BACTRIM DS 800-160 MG ORAL TABLET 1 tab by mouth twice daily 201 11/23/03 BACTRIM DS 800-160 MG ORAL TABLET 747781 TRIMETHOPRIM-SULFAMETHOXAZOLE Inactive DIFLUCAN 150 MG ORAL TABLET [...] as needed HYDROCODONE-ACETAMINOPHEN 5-325 MG ORAL TABLET 075152 HYDROCODONE-ACETAMINOPHEN Inactive BACTROBAN 2 % EXTERNAL CREAM Apply to affected area BID for up to 10 days BACTROBAN 2 % EXTERNAL CREAM 892914 MUPIROCIN CA LCIUM Inactive MAGNESIUM CITRATE 1.745 GM/30ML ORAL SOLUTION 150ml po BID P RN Constipation MAGNESIUM CITRATE 1.745 GM/30ML ORAL SOLUTION 10 78635 MAGNESIUM CITRATE Inactive DIFLUCAN 150 MG ORAL TABLET 1 tablet by mouth qod 2015 DIFLUCAN 150 MG ORAL TABLET 648740 FLUCONAZOLE Inactive BACTRIM DS 800-160 MG ORAL TABLET 1 tab by mouth twice daily 201 12/19/26 BACTRIM DS 800-160 MG ORAL TABLET 274416 TRIMETHOPRIM-SULFAMETHOXAZOLE Inactive CLARITIN 10 MG ORAL TABLET 1 tablet by mouth daily as needed for allergies CLARITIN 10 MG ORAL TABLET 035163 LORATADINE I nactive FLUTICASONE PROPIONATE 50 MCG/ACT NASAL SUSPENSION 2 s prays/nostril qd PRN Congestion/Allergies FLUTICASONE PROPION ATE 50 MCG/ACT NASAL SUSPENSION 9113009 FLUTICASONE PROPIONATE Inactive MIRALAX ORAL POWDER 8.5 to 17g po qd PRN Constipation MIRALAX ORAL POWDER 074433 POLYETHYLENE GLYCOL 3350 Inactive CIPRO 500 MG ORAL TABLET 1 tablet by mouth twice daily CIPRO 500 MG ORAL TABLET 051009 CIPROFLOXACIN HCL Inactive FLUCONAZOLE 150 MG ORAL TABLET take 1 tab po qday once FLUCONAZOLE 150 MG ORAL TABLET 735173 FLUCONAZOLE Inactive ZITHROMAX Z-KARTHIK 250 MG ORAL TABLET 2 today, then 1 daily for 4 d ays ZITHROMAX Z-KARTHIK 250 MG ORAL TABLET 740975 AZITHROMYCIN Inactive PREDNISONE 20 MG ORAL TABLET 2 tabs daily for 3 days, 1 tab daily for 3 days, 1/2 tab daily for 2 days PREDNISONE 20 MG ORAL T ABLET 076270 PREDNISONE Inactive AZITHROMYCIN 250 MG ORAL TABLET 2 po qd x 1 day, then 1 po q d x 4 days AZITHROMYCIN 250 MG ORAL TABLET 387005 AZITHROMY SPARKLE Inactive PREDNISONE 20 MG ORAL TABLET 2 tabs daily for 3 days, 1 tab daily for 3 days, 1/2 tab daily for 2 days PREDNISONE 20 MG ORAL TABLET 562208 PREDNISONE Inactive CEFDINIR 300 MG ORAL CAPSULE by mouth twice a day 2013 CEFDINIR 300 MG ORAL CAPSULE 007497 CEFDINIR Inactive TRIAMCINOLONE ACETONIDE 0.1 % EXTERNAL OINTMENT Apply to affected areas TID for up to 2 weeks TRIAMCINOLONE ACETON ZACH 0.1 % EXTERNAL OINTMENT 9845878 TRIAMCINOLONE ACETONIDE Inactive PREDNISONE 20 MG ORAL TABLET 2 tabs daily for 3 days, 1 tab daily for 3 days, 1/2 tab daily for 2 days PREDNISONE 20 MG ORAL T ABLET 480299 PREDNISONE Inactive BACTRIM DS 800-160 MG ORAL TABLET 1 po BID x 7 days 29/04/10 BACTRIM DS 800-160 MG ORAL TABLET 025511 SULFAMETHOXAZOLE-TRIMETHOP RIM Inactive CIPRO 500 MG ORAL TABLET 1 tablet by mouth twice daily CIPRO 500 MG ORAL TABLET 751612 CIPROFLOXACIN HCL Inactive AZITHROMYCIN 250 MG ORAL TABLET 2 po qd x 1 day, then 1 po q d x 4 days AZITHROMYCIN 250 MG ORAL TABLET 972917 AZITHROMY SPARKLE Inactive FLAGYL 500 MG ORAL TABLET 1 tablet by mouth bid 04/13 FLAGYL 500 MG ORAL TABLET 739910 METRONIDAZOLE Inactive AZITHROMYCIN 250 MG ORAL TABLET 2 po qd x 1 day, then 1 po q d x 4 days AZITHROMYCIN 250 MG ORAL TABLET 815387 AZITHROMY SPARKLE Inactive AMOXICILLIN 500 MG ORAL CAPSULE 2 po BID x 10 days 201 01/15/27 AMOXICILLIN 500 MG ORAL CAPSULE 636136 AMOXICILLIN Inactive AMOXICILLIN 500 MG ORAL CAPSULE 2 po BID x 14 days for H. Pylori AMOXICILLIN 500 MG ORAL CAPSULE 179024 AMOXICILLIN Inactive CLARITHROMYCIN 500 MG ORAL TABLET 1 tab po BID x 14 days CLARITHROMYCIN 500 MG ORAL TABLET 568684 CLARITHROMYCIN Inacti ve FLAGYL 500 MG ORAL TABLET 1 tablet by mouth bid 08/29 FLAGYL 500 MG ORAL TABLET 176113 METRONIDAZOLE Inactive PROTONIX 40 MG ORAL TABLET DELAYED RELEASE 1 pill by m outh daily, for acid reflux PROTONIX 40 MG ORAL TABLET DELAYED RELEAS E 713048 PANTOPRAZOLE SODIUM Inactive Immunizations Vaccine Administration Date [...] ... - Chemistry sodium, serum 139 mmol/L 875-966 7759/11/28 carbon dioxide, venous blood 26.0 mmol/L 21.0-32 [...] 5.0-8.5 Encounters Code Encounter Date Provider Facility CPT-08696 Level 4 Est. Patient 08:57:51 [employer]ENTRIF[employer]ACHINE [employer]ENDER Checo Conklin MD [facility] CPT-95129 Level 3 Est. Patient 11:24:55 [employer]ENTRIFUGAL MACHINE TENDER Efren almendarez [facility] CPT-10348 Level 3 Est. Patient 13:05:44 CDT Paul Hamlin MD [facility] CPT-62617 Level 3 Est. Patient 11:29:55 CDT Checo Conklin MD [facility] CPT-97302 Level 4 Est. Patient 11:08:12 [employer]ENTRIFUGAL MACHINE TENDER Checo Conklin MD [facility] CPT-97508 Level 4 Est. Patient 16:06:48 CENTRIFUGAL MACHINE TENDER Checo Conklin MD [facility] CPT-73064 Level 3 Est. Patient 09:11:49 CDT Efren almendarez [facility] CPT-03539 Level 2 Est. Patient 19:53:27 CDT Tanner hill MD [facility] CPT-50773 Level 3 Est. Patient 09:15:34 CDT Efren almendarez [facility] CPT-91753 Level 3 Est. Patient 11:28:51 [employer]ENTRIFUGAL MACHINE TENDER Efren almendarez [facility] CPT-85817 Level 4 Est. Patient 13:55:46 CENTRIFUGAL MACHINE TENDER Checo Conklin MD [facility] CPT-96601 Level 4 Est. Patient 17:10:53 CDT Checo Conklin MD [facility] CPT-07798 Level 3 Est. Patient 15:56:22 CDT Checo Conklin MD [facility] CPT-35745 Level 3 Est. Patient 15:29:07 CDT Checo Conklin MD [facility] CPT-76043 Level 3 Est. Patient 14:38:41 CDT Checo Conklin MD [facility] CPT-21319 Level 3 Est. Patient 15:22:03 CENTRIFUGAL MACHINE TENDER Thomas reynolds DO [facility] CPT-13020 Level 3 Est. Patient 13:34:17 CENTRIFUGAL MACHINE TENDER Checo Conklin MD [facility] CPT-33611 Level 3 Est. Patient 12:29:32 CDT Dangelo arroyo MD [facility] CPT-20165 Level 3 Est. Patient 16:53:02 CDT Checo Conklin MD [facility] CPT-43937 Level 3 Est. Patient 16:37:13 CDT Checo Conklin MD [facility] CPT-34164 Level 3 Est. Patient 16:16:59 CDT Paul Hamlin MD [facility] CPT-63831 Level 3 Est. Patient 14:20:13 CDT Dangelo arroyo MD [facility] CPT-38515 Level 4 Est. Patient 11:29:33 CDT Checo Conklin MD [facility] CPT-59247 Level 3 Est. Patient 17:08:31 CDT Checo Conklin MD [facility] CPT-44144 Level 3 Est. Patient 16:50:42 CENTRIFUGAL MACHINE TENDER Checo Conklin MD [facility] CPT-89325 Level 4 Est. Patient 09:26:08 CENTRIFUGAL MACHINE TENDER Checo Conklin MD [facility] CPT-11777 Level 3 Est. Patient 11:37:10 CDT Checo Conklin MD [facility] CPT-61039 Level 4 Est. Patient 14:07:38 CDT Checo Conklin MD [facility] CPT-20122 Level 3 Est. Patient 09:54:41 CDT Checo Conklin MD [facility] CPT-82265 Level 3 Est. Patient 11:10:54 CDT Paul Hamlin MD [facility] CPT-34882 Level 3 Est. Patient 14:16:56 CEN[employer]IFUGAL MACHINE TENDER Checo Conklin MD [facility] CPT-43727 Level 3 Est. Patient 11:04:11 CENTRIFUGAL MACHINE TENDER Checo Conklin MD [facility] CPT-55711 Level 3 Est. Patient 17:09:26 CDT Dangelo arroyo MD [facility] CPT-74888 Level 3 Est. Patient 16:54:37 CDT Checo Conklin MD [facility] Procedures Code Procedure Name Date Entry Date Standard Desc ription CPT-99728 Abd compl w upright - XRAY USE ONLY 1 1:36:54 [employer]UG[employer] MACHINE TENDER CPT-31470 UA w micro - LAB USE ONLY 17:06:46 CDT 2015 CPT-86472 BHCG Qual - LAB USE ONLY 17:06:46 CDT 05/06 CPT-47236 CMP - LAB USE ONLY 17:06:46 CDT CPT-26071 CBC with Diff - LAB USE ONLY 17:06:45 CDT 2 CPT-37902 Venipuncture Draw Fee 17:06:45 CDT CPT-LR Lesion Removal 19:53:27 CDT CPT-OV Office Visit 11:31:28 CDT CPT-57913 Tubersol 09:39:29 CDT CPT-J2550 Phenergan 25 mg (Promethazine) 13:59:02 C[employer]TRIFUGAL MACHINE TENDER CPT-J1885 Toradol 60 mg (Ketorolac) 13:59:02 CENTRIFUGAL MACHINE TENDER 2012
--- OUTSIDE RECORDS SUMMARY | 2019-09-29 01:30 | XMS REPORT | Clinical Summary ---
Author Author Admin, Bethany Ayala [facility] Address Unknown Phone Unavailable Allergies, Adverse [...] infection, site not specified UTI 599.0 Resolved Cheoc Conklin MD Urinary tract infection, site not [...] Joshua Pain in joint involving lower leg FH BREAST CANCER ICD-V16.3 Inactive Checo Joshua [...] Generic Name NDC Status Provider Patient Instruction HYDROCODONE-ACETAMINOPHEN 5-325 MG TABS 0.5 to 1 tab b y mouth every 6 hours as needed HYDROCODONE-ACETAMINOPHEN 48705899579 Active Checo Conklin MD Active DICLOFENAC SODIUM 75 MG TBEC 1 tablet by mouth twice daily P RN Knee pain DICLOFENAC SODIUM 92141158125 Active Checo Conklin MD Active LAMISIL 250 MG TAB 1 po qd TERBINAFINE HCL 548 59357541 No Longer Active Checo Conklin MD Active REGLAN 10 MG TAB 1 po TID PRN Nausea METOCLOPRA MIDE HCL 62358822984 No Longer Active Checo Conklin MD Active CELEXA 20 MG TABS 1 tablet by mouth daily CITALOPRAM HYDROBROMIDE 80290151191 No Longer Active Checo Conklin MD Activ e AZITHROMYCIN 250 MG TABS 2 po qd x 1 day, then 1 po qd x 4 days AZITHROMYCIN 56642802533 No Longer Active Checo Conklin MD Active HYDROCODONE-ACETAMINOPHEN 5-325 MG TABS 1 po q 6hr PRN Pain 2013 HYDROCODONE-ACETAMINOPHEN 51207406708 No Longer Active Lenora Conklin MD Active PHENAZOPYRIDINE HCL 200 MG TABS take 1 tab po TID for bladder pa in PHENAZOPYRIDINE HCL 17209173338 No Longer Active Checo Joshua Active CIPRO 500 MG TAB 1 tablet by mouth twice daily CIPROFLOXACIN HCL 00685889213 No Longer Active Dangelo Rangel MD Active HYDROCODONE-ACETAMINOPHEN 5-325 MG TABS 1/2 to 1 po q 4 hour s prn cough HYDROCODONE-ACETAMINOPHEN 59954210217 No Longer Activ e Dangelo Rangel MD Active BACTRIM DS 800-160 MG TABS 1 po BID x 7 days 0 SULFAMETHOXAZOLE-TRIMETHOPRIM 74620352217 No Longer Active Checo Conklin MD Active PREDNISONE 20 MG TAB 2 tabs daily for 3 days, 1 t ab daily for 3 days, 1/2 tab daily for 2 days PREDNISONE 38668289222 No Longer Active Checo Conklin MD Active TRIAMCINOLONE ACETONIDE 0.1 % OINT Apply to affected a reas TID for up to 2 weeks TRIAMCINOLONE ACETONIDE 77942978920 No Longer A ctive Checo Conklin MD Active CEFDINIR 300 MG CAPS by mouth twice a day CEFDI JAZZY 27009580734 No Longer Active Dangelo Rangel MD Active BUPROPION HCL (SMOKING DETER) 150 MG [id number] 1 a day for 1 week then 1 twice a day BUPROPION HCL (SMOKING DETER) 59164788832 No Lo nger Active Checo Conklin MD Active SIMVASTATIN 20 MG TABS 1 po qd SIMVASTATIN 1379581613 5 Active Checo Conklin MD Active CHANTIX STARTING MONTH KARTHIK 0.5 MG X 11 & 1 MG X 42 TAB S 0.5mg daily for 3 days, then 0.5mg BID for 4 days, then 1mg BID VARENICLINE TARTRATE 09855334430 No Longer Active Checo Conklin MD Activ e XANAX 0.5 MG TABS 1 po BID PRN anxiety ALPRAZOLAM 63137653805 Active Checo Conklin MD Active CONCERTA 18 MG CR-TABS 1 po q a.m. METHYLPHENID ATE HCL 80503011368 No Longer Active Checo Conklin MD Active AMBIEN 5 MG TAB 1 po qHS PRN Insomnia ZOLPIDEM TARTRATE 48131035362 Active Checo Conklin MD Active TRAZODONE HCL 100 MG TAB 0.5 to 1 po qHS PRN Insomnia TRAZODONE HCL 87663032996 No Longer Active Checo Conklin MD Acti ve FIORICET 325-50-40 MG TAB 1 tablet by mouth four times daily as needed [id number] 54805693876 No Longer Active Checo Conklin MD Active PHENERGAN CREAM* 25mg applied to wrist q6hr PRN Nausea PHENERGAN CREAM* No Longer Active Checo Gonzales ctive FLONASE 50 MCG/ACT SUSP 1 spray each nostril am and hs FLUTICASONE PROPIONATE 10149264002 No Longer Active Checo Conklin MD Activ e ANTIPYRINE-BENZOCAINE 5.4-1.4 % SOLN 1-2 drops in affected ear BENZOCAINE-ANTIPYRINE 51145543588 No Longer Active Checo Conklin MD Active CEFDINIR 300 MG CAPS 1 po bid CEFDINIR 21467484 120 No Longer Active Checo Conklin MD Active PREDNISONE 20 MG TAB 2 tabs daily for 3 days, 1 t ab daily for 3 days, 1/2 tab daily for 2 days PREDNISONE 25187869154 No Longer Active Aracelis Conklin MD Active AZITHROMYCIN 250 MG TABS 2 po qd x 1 day, then 1 po qd x 4 days AZITHROMYCIN 01058501416 No Longer Active Checo Conklin MD Active PREDNISONE 20 MG TAB 2 tabs daily for 3 days, 1 t ab daily for 3 days, 1/2 tab daily for 2 days PREDNISONE 72059533971 No Longer Active Checo Conklin MD Active ZITHROMAX Z-KARTHIK 250 MG TABS 2 today, then 1 daily for 4 days 201 09/18/28 AZITHROMYCIN 33344736857 No Longer Active Paul Hamlin MD Active FOCALIN XR 10 MG [id number] 1 po q a.m. D EXMETHYLPHENIDATE HCL 88944061140 No Longer Active Paul Hamlin MD Activ e PERCOCET 10-325 MG TABS 1 tablet every 6 hours as needed for pain OXYCODONE-ACETAMINOPHEN 18267126696 No Longer Active Paul Hamlin MD Active LORTAB 5 5-500 MG TABS 1/2 to 1 tablet by mouth flaquito ry 4 hours as needed for pain HYDROCODONE-ACETAMINOPHEN 81763901489 No Longer Active Checo Conklin MD Active FOCALIN XR 15 MG [id number] 1 po q a.m. D EXMETHYLPHENIDATE HCL 28164917439 No Longer Active Checo Conklin MD Activ e ZOFRAN ODT 4 MG TBDP 1 po q6hr PRN Nausea ONDAN SETRON 11634274334 No Longer Active Checo Conklin MD Active PERCOCET 5-325 MG TABS 1 tablet by mouth every 6 hours as needed OXYCODONE-ACETAMINOPHEN 72174146071 No Longer Active Checo Conklin MD Active PYRIDIUM 200 MG TABS take 1 tab po TID prn urinary pain. 0 PHENAZOPYRIDINE HCL 96481102607 No Longer Active Checo Conklin MD Active FLUCONAZOLE 150 MG TABS take 1 tab po qday once 04/06 FLUCONAZOLE 01718525956 No Longer Active Dangelo Rangel MD Acti ve CIPRO 500 MG TAB 1 tablet by mouth twice daily CIPROFLOXACIN HCL 44464503787 No Longer Active Dangelo Rangel MD Active PYRIDIUM 200 MG TABS take 1 tab po TID prn urinary pain. 0 PYRIDIUM 200 MG TABS 5706955 PHENAZOPYRIDINE HCL Inactive PERCOCET 5-325 MG TABS 1 tablet by mouth every 6 hours as needed PERCOCET 5-325 MG TABS 8732465 OXYCODONE-ACETAMINOPHEN I nactive ZOFRAN ODT 4 MG TBDP 1 po q6hr PRN Nausea ZOFRAN ODT 4 MG TBDP 087861 ONDANSETRON Inactive FOCALIN XR 15 MG [id number] 1 po q a.m. F OCALIN XR 15 MG [id number] DEXMETHYLPHENIDATE HCL Inactive LORTAB 5 5-500 MG TABS 1/2 to 1 tablet by mouth flaquito ry 4 hours as needed for pain LORTAB 5 5-500 MG TABS HYDROCODONE-A CETAMINOPHEN Inactive PERCOCET 10-325 MG TABS 1 tablet every 6 hours as needed for pain PERCOCET 10-325 MG TABS 9451138 OXYCODONE-ACETAMINOPHEN Inactive FOCALIN XR 10 MG [id number] 1 po q a.m. F OCALIN XR 10 MG [id number] DEXMETHYLPHENIDATE HCL Inactive CEFDINIR 300 MG CAPS 1 po bid CEFDINIR 300 MG CAPS 20 0346 CEFDINIR Inactive ANTIPYRINE-BENZOCAINE 5.4-1.4 % SOLN 1-2 drops in affected ear ANTIPYRINE-BENZOCAINE 5.4-1.4 % SOLN 808135 BENZOCAINE-ANTIPYRINE I nactive FLONASE 50 MCG/ACT SUSP 1 spray each nostril am and hs FLONASE 50 MCG/ACT SUSP 345365 FLUTICASONE PROPIONATE Inactive PHENERGAN CREAM* 25mg applied to wrist q6hr PRN Nausea PHENERGAN CREAM* Inactive FIORICET 325-50-40 MG TAB 1 tablet by mouth four times daily as needed FIORICET 325-50-40 MG TAB ACETAMINOPHEN-C AFF-BUTALBITAL Inactive TRAZODONE HCL 100 MG TAB 0.5 to 1 po qHS PRN Insomnia TRAZODONE HCL 100 MG TAB 384425 TRAZODONE HCL Inactive CONCERTA 18 MG CR-TABS [...] s prn cough HYDROCODONE-ACETAMINOPHEN 5-325 MG TABS 587430 HYDROCODONE-ACETAMINOPHEN Inactive PHENAZOPYRIDINE HCL 200 MG TABS take 1 tab po TID for bladder pa in PHENAZOPYRIDINE HCL 200 MG TABS 6019295 PHENAZOPYRIDINE HCL Inactive HYDROCODONE-ACETAMINOPHEN 5-325 MG TABS 1 po q 6hr PRN Pain 2013 HYDROCODONE-ACETAMINOPHEN 5-325 MG TABS 421370 HYDROCODONE-ACETAMINOPHEN Inactive CELEXA 20 MG TABS 1 tablet by mouth daily CELEXA 20 MG TABS 604886 CITALOPRAM HYDROBROMIDE Inactive REGLAN 10 MG TAB 1 po TID PRN Nausea REGLAN 10 MG TAB 968265 METOCLOPRAMIDE HCL Inactive LAMISIL 250 MG TAB 1 po qd LAMISIL 250 MG TAB 151935 TERBINAFINE HCL Inactive CIPRO 500 MG TAB 1 tablet by mouth twice daily CIPRO 500 MG TAB 359720 CIPROFLOXACIN HCL Inactive FLUCONAZOLE 150 MG TABS take 1 tab po qday once 04/06 FLUCONAZOLE 150 MG TABS 608511 FLUCONAZOLE Inactive ZITHROMAX Z-KARTHIK 250 MG TABS 2 today, then 1 daily for 4 days 201 09/18/28 ZITHROMAX Z-KARTHIK 250 MG TABS 0448373 AZITHROMYCIN Inac tive PREDNISONE 20 MG TAB 2 tabs daily for 3 days, 1 t ab daily for 3 days, 1/2 tab daily for 2 days PREDNISONE 20 MG TAB 098239 PREDNISON E Inactive AZITHROMYCIN 250 MG TABS 2 po qd x 1 day, then 1 po qd x 4 days AZITHROMYCIN 250 MG TABS 1867711 AZITHROMYCIN Inactiv e PREDNISONE 20 MG TAB 2 tabs daily for 3 days, 1 t ab daily for 3 days, 1/2 tab daily for 2 days PREDNISONE 20 MG TAB 878450 PREDNISON E Inactive CEFDINIR 300 MG CAPS by mouth twice a day CEFDINIR 300 MG CAPS 795285 CEFDINIR Inactive TRIAMCINOLONE ACETONIDE 0.1 % OINT Apply to affected a reas TID for up to 2 weeks TRIAMCINOLONE ACETONIDE 0.1 % OINT 613222 6 TRIAMCINOLONE ACETONIDE Inactive PREDNISONE 20 MG TAB 2 tabs daily for 3 days, 1 t ab daily for 3 days, 1/2 tab daily for 2 days PREDNISONE 20 MG TAB 998911 PREDNISON E Inactive BACTRIM DS 800-160 MG TABS 1 po BID x 7 days 0 BACTRIM DS 800-160 MG TABS SULFAMETHOXAZOLE-TRIMETHOPRIM Inactive CIPRO 500 MG TAB 1 tablet by mouth twice daily CIPRO 500 MG TAB 957968 CIPROFLOXACIN HCL Inactive AZITHROMYCIN 250 MG TABS 2 po qd x 1 day, then 1 po qd x 4 days AZITHROMYCIN 250 MG TABS 0498349 AZITHROMYCIN Inactiv e Immunizations Vaccine Administration Date [...] - 3141-9 115 [lb_av] Weigh t Measured blood pressure, diastolic - 8462-4 72 mm[Hg] BP mathew blood pressure, systolic - 8480-6 110 mm[Hg] BP sys height E&M - 8302-2 63.5 [in_us] Bdy h eight pulse rate E&M - 8867-4 72 /min H eart rate temperature E&M 97.5 [degF] Body temp erature weight E&M - 3141-9 114 [lb_av] Weigh t Measured blood pressure, diastolic - 8462-4 83 mm[Hg] BP mathew blood pressure, systolic - 8480-6 115 mm[Hg] BP sys pulse rate E&M - 8867-4 78 /min H eart rate temperature E&M 98.0 [degF] Body temp erature weight E&M - 3141-9 112 [lb_av] Weigh t Measured Diagnostic Results Date Name Value Unit Range Description Immunizations: Immunization Administrati on - Challenge tests PPD results in mm < 5mm mm Lab Report: Comp. Metabolic Panel, Lipid Panel - Chemistry sodium, serum 139 mmol/L 181-275 7056/10/24 potassium, serum 4.1 mmol/L 3.5-5.2 chloride, serum [...] 0.80 mg/dL 0.00-1.00 cholesterol, serum 147 mg/dL 198-965 3905/10/24 triglyceride, serum, fasting 112 mg/dL 30-200 HDL [...] 5.0-8.5 Encounters Code Encounter Date Provider Facility CPT-84063 Level 3 Est. Patient 14:38:41 CDT Checo Conklin MD [facility] CPT-75605 Level 3 Est. Patient 15:22:03 UTILITY OPERATOR YARN Thomas reynolds DO [facility] CPT-27192 Level 3 Est. Patient 13:34:17 UTILITY OPERATOR YARN Checo Conklin MD [facility] CPT-60294 Level 3 Est. Patient 12:29:32 CDT Dangelo arroyo MD [facility] CPT-45460 Level 3 Est. Patient 16:53:02 CDT Checo Conklin MD [facility] CPT-68457 Level 3 Est. Patient 16:37:13 CDT Checo Conklin MD [facility] CPT-87535 Level 3 Est. Patient 16:16:59 CDT Paul Hamlin MD [facility] CPT-83325 Level 3 Est. Patient 14:20:13 CDT Dangelo arroyo MD [facility] CPT-59132 Level 4 Est. Patient 11:29:33 CDT Checo Conklin MD [facility] CPT-65998 Level 3 Est. Patient 17:08:31 CDT Checo Conklin MD [facility] CPT-75596 Level 3 Est. Patient 16:50:42 UTILITY OPERATOR YARN Checo Conklin MD [facility] CPT-91521 Level 4 Est. Patient 09:26:08 UTILITY OPERATOR YARN Checo Conklin MD [facility] CPT-89483 Level 3 Est. Patient 11:37:10 CDT Checo Conklin MD [facility] CPT-21941 Level 4 Est. Patient 14:07:38 CDT Checo Conklin MD [facility] CPT-33898 Level 3 Est. Patient 09:54:41 CDT Checo Conklin MD [facility] CPT-49320 Level 3 Est. Patient 11:10:54 CDT Paul Hamlin MD [facility]-56525 Level 3 Est. Patient 14:16:56 UTILITY OPERATOR YARN Checo Conklin MD [facility] CPT-15585 Level 3 Est. Patient 11:04:11 UTILITY OPERATOR YARN Checo Conklin MD [facility] CPT-24486 Level 3 Est. Patient 17:09:26 CDT Dangelo arroyo MD [facility] CPT-49937 Level 3 Est. Patient 16:54:37 CDT Checo Conklin MD [facility] Procedures Code Procedure Name Date Entry Date Standard Desc ription CPT-OV Office Visit 11:31:28 CDT CPT-22988 Tubersol 09:39:29 CDT CPT-J2550 Phenergan 25 mg (Promethazine) 13:59:02 UTILITY OPERATOR YARN CPT-J1885 Toradol 60 mg (Ketorolac) 13:59:02 UTILITY OPERATOR YARN 2012
--- OUTSIDE RECORDS SUMMARY | 2019-09-29 01:30 | XMS REPORT | Clinical Summary ---
Author Author Admin, Bethany Ayala ulike [facility] Address Unknown Phone Unavailable Allergies, Adverse Reactions, [...] TABLET 1 po qd PAR OXETINE HCL 31751120923 Active Checo Conklin MD Active MIRALAX ORAL POWDER 8.5 to 17g po qd PRN Constipation POLYETHYLENE GLYCOL 3350 [id number] No Longer Active Checo Conklin MD Active PROTONIX 40 MG ORAL TABLET DELAYED RELEASE 1 pill by m outh daily, for acid reflux PANTOPRAZOLE SODIUM 05229516895 No Longer Activ e Corry Méndez LPN Active FLAGYL 500 MG ORAL TABLET 1 tablet by mouth bid 08/29 METRONIDAZOLE 72609754059 No Longer Active Corry Méndez LPN Active CLARITHROMYCIN 500 MG ORAL TABLET 1 tab po BID x 14 days CLARITHROMYCIN 26482437667 No Longer Active Corry Méndez LPN Active AMOXICILLIN 500 MG ORAL CAPSULE 2 po BID x 14 days for H. Pylori AMOXICILLIN 74361525291 No Longer Active Corry Méndez LPN Active FLUTICASONE PROPIONATE 50 MCG/ACT NASAL SUSPENSION 2 s prays/nostril qd PRN Congestion/Allergies FLUTICASONE PROPIONATE 3501351494 9 No Longer Active Checo Conklin MD Active AMOXICILLIN 500 MG ORAL CAPSULE 2 po BID x 10 days 201 01/15/27 AMOXICILLIN 69784072428 No Longer Active Checo Conklin MD Activ e CLARITIN 10 MG ORAL TABLET 1 tablet by mouth daily as needed for allergies LORATADINE 30704862981 No Longer Active Checo Ortiz MD Active BACTRIM DS 800-160 MG ORAL TABLET 1 tab by mouth twice daily 201 12/19/26 TRIMETHOPRIM-SULFAMETHOXAZOLE 63139892861 No Longer Active Ragini Carrillo MD Active DIFLUCAN 150 MG ORAL TABLET 1 tablet by mouth qod 2015 FLUCONAZOLE 99866704910 No Longer Active Efren Medel APRN Act mike AZITHROMYCIN 250 MG ORAL TABLET 2 po qd x 1 day, then 1 po q d x 4 days AZITHROMYCIN 97360311976 No Longer Active Efren flores APRN Active FLAGYL 500 MG ORAL TABLET 1 tablet by mouth bid 04/13 METRONIDAZOLE 53911833474 No Longer Active Checo Conklin MD Acti ve FOCALIN XR 10 MG ORAL CAPSULE EXTENDED RELEASE 24 HOUR 1 po q a.m. DEXMETHYLPHENIDATE HCL 66557715184 Active Checo Conklin MD Active MAGNESIUM CITRATE 1.745 GM/30ML ORAL SOLUTION 150ml po BID P RN Constipation MAGNESIUM CITRATE 12608808494 No Longer Active Checo Conklin MD Active BACTROBAN 2 % EXTERNAL CREAM Apply to affected area BID for up to 10 days MUPIROCIN CALCIUM 23994811246 No Longer Active Checo Conklin MD Active HYDROCODONE-ACETAMINOPHEN 5-325 MG ORAL TABLET 1 tab b y mouth every 6 hours as needed HYDROCODONE-ACETAMINOPHEN 34302567729 No Longer Active Checo Conklin MD Active IBUPROFEN 800 MG ORAL TABLET 1 tab every 8 hours with food 03/20 IBUPROFEN 37152388832 No Longer Active Checo Conklin MD Active DIFLUCAN 150 MG ORAL TABLET 1 tablet by mouth if neede d, hold until symptoms start FLUCONAZOLE 76673522306 No Longer Active Checo Conklin MD Active BACTRIM DS 800-160 MG ORAL TABLET 1 tab by mouth twice daily 201 11/23/03 TRIMETHOPRIM-SULFAMETHOXAZOLE 55032897296 No Longer Active K imberly Whitmontezy, [employer]OX [employer] CHECKER Active HYDROCODONE-ACETAMINOPHEN 5-325 MG ORAL TABLET 0.5 to 1 tab by mouth every 6 hours as needed HYDROCODONE-ACETAMINOPHEN 13780173214 No Longer Active Checo Conklin MD Active ONDANSETRON 8 MG ORAL TABLET DISINTEGRATING place one tablet on tongue and allow to dissolve every 6 hours as needed for vomitting ONDANSETRON 49962285499 No Longer Active Checo Conklin MD Activ e COMPRO 25 MG RECTAL SUPPOSITORY insert or apply one garza ppository rectally as directed every 12 hours as needed for nausea PROCHLORPERAZINE 05509976016 No Longer Active Checo Conklin MD A ctive SUMATRIPTAN SUCCINATE 100 MG ORAL TABLET Take one PRN for migran e SUMATRIPTAN SUCCINATE 28683268217 No Longer Active Checo Conklin MD Active TRAVEL SICKNESS 25 MG ORAL TABLET CHEWABLE chew and sw allow one tablet every 6 hours as needed MECLIZINE HCL 28220986728 No Longer A ctive Checo Conklin MD Active BUPROPION HCL ER (SR) 100 MG ORAL TABLET EXTENDED RELE ASE 12 HOUR take one tablet by mouth one time daily for one week then take 1 two times daily BUPROPION HCL 30043311143 No Longer Active Checo gallagher MD Active TERBINAFINE HCL 250 MG ORAL TABLET take one table PO one time da moises TERBINAFINE HCL 25073006365 No Longer Active Checo Conklin MD Active METOCLOPRAMIDE HCL 10 MG ORAL TABLET take one PO tid PRN nausea METOCLOPRAMIDE HCL 70945484271 No Longer Active Checo Cnoklin MD Active DICLOFENAC SODIUM 75 MG ORAL TABLET DELAYED RELEASE 1 tablet by mouth twice daily PRN Knee pain DICLOFENAC SODIUM 52523990539 No Longer Active Checo Conklin MD Active LAMISIL 250 MG ORAL TABLET 1 po qd TERBINAFI NE HCL 93202232502 No Longer Active Checo Conklin MD Active REGLAN 10 MG ORAL TABLET 1 po TID PRN Nausea 3 METOCLOPRAMIDE HCL 87182278180 No Longer Active Checo Conklin MD Active CELEXA 20 MG ORAL TABLET 1 tablet by mouth daily 09/26 CITALOPRAM HYDROBROMIDE 64222904350 No Longer Active Checo Conklin MD Active AZITHROMYCIN 250 MG ORAL TABLET 2 po qd x 1 day, then 1 po q d x 4 days AZITHROMYCIN 50493498344 No Longer Active Checo Ortiz MD Active HYDROCODONE-ACETAMINOPHEN 5-325 MG ORAL TABLET 1 po q 6hr PRN Pa in HYDROCODONE-ACETAMINOPHEN 58489056164 No Longer Active Lenora Conklin MD Active PHENAZOPYRIDINE HCL 200 MG ORAL TABLET take 1 tab po TID for bladder pain PHENAZOPYRIDINE HCL 62739619171 No Longer Active Joe Conklin MD Active CIPRO 500 MG ORAL TABLET 1 tablet by mouth twice daily CIPROFLOXACIN HCL 62207254189 No Longer Active Dangelo Rangel MD Active HYDROCODONE-ACETAMINOPHEN 5-325 MG ORAL TABLET 1/2 to 1 po q 4 hours prn cough HYDROCODONE-ACETAMINOPHEN 24959602838 No Longer Activ e Dangelo Rangel MD Active BACTRIM DS 800-160 MG ORAL TABLET 1 po BID x 7 days 29/04/10 SULFAMETHOXAZOLE-TRIMETHOPRIM 96362083343 No Longer Active Checo Conklin MD Active PREDNISONE 20 MG ORAL TABLET 2 tabs daily for 3 days, 1 tab daily for 3 days, 1/2 tab daily for 2 days PREDNISONE 19212721487 No Longer Active Checo Conklin MD Active TRIAMCINOLONE ACETONIDE 0.1 % EXTERNAL OINTMENT Apply to affected areas TID for up to 2 weeks TRIAMCINOLONE ACETONIDE 10501216292 No Longer Active Checo Conklin MD Active CEFDINIR 300 MG ORAL CAPSULE by mouth twice a day 2013 CEFDINIR 96061565390 No Longer Active Dangelo Rangel MD Acti ve BUPROPION HCL ER (SMOKING DET) 150 MG ORAL TABLET EXTE NDED RELEASE 12 HOUR 1 a day for 1 week then 1 twice a day BUPROPION HCL (SMOKING DETER) 37738286870 No Longer Active Checo Conklin MD Active SIMVASTATIN 20 MG ORAL TABLET 1 po qd SIMVASTAT IN 14762209585 Active Checo Conklin MD Active CHANTIX STARTING MONTH KARTHIK 0.5 MG X 11 & 1 MG X 42 ORA L TABLET 0.5mg daily for 3 days, then 0.5mg BID for 4 days, then 1mg BID VARENICLINE TARTRATE 48635657324 No Longer Active Checo Conklin MD Activ e XANAX 0.5 MG ORAL TABLET 1 po BID PRN anxiety A LPRAZOLAM 70917489566 Active Checo Conklin MD Active CONCERTA 18 MG ORAL TABLET EXTENDED RELEASE 1 po q a.m. METHYLPHENIDATE HCL 95767057844 No Longer Active Checo Conklin MD Active AMBIEN 5 MG ORAL TABLET 1 po qHS PRN Insomnia Z OLPIDEM TARTRATE 76138921868 Active Checo Conklin MD Active TRAZODONE HCL 100 MG ORAL TABLET 0.5 to 1 po qHS PRN Insomnia 20 30/07/08 TRAZODONE HCL 83227040506 No Longer Active Checo Conklin MD Active FIORICET 325-50-40 MG TAB 1 tablet by mouth four times daily as needed [id number] 74696615854 No Longer Active Checo Conklin MD Active PHENERGAN CREAM* 25mg applied to wrist q6hr PRN Nausea PHENERGAN CREAM* No Longer Active Checo Conklin MD A ctive FLONASE 50 MCG/ACT NASAL SUSPENSION 1 spray each nostril am and hs FLUTICASONE PROPIONATE 39609030662 No Longer Active Checo Conklin MD Active ANTIPYRINE-BENZOCAINE 5.4-1.4 % OTIC SOLUTION 1-2 drops in affec yohannes ear BENZOCAINE-ANTIPYRINE 79442253372 No Longer Active Checo Conklin MD Active CEFDINIR 300 MG ORAL CAPSULE 1 po bid CEFDINIR 95433943592 No Longer Active Checo Conklin MD Active PREDNISONE 20 MG ORAL TABLET 2 tabs daily for 3 days, 1 tab daily for 3 days, 1/2 tab daily for 2 days PREDNISONE 77656201810 No Longer Active Checo Conklin MD Active AZITHROMYCIN 250 MG ORAL TABLET 2 po qd x 1 day, then 1 po q d x 4 days AZITHROMYCIN 48328816043 No Longer Active Checo Ortiz MD Active PREDNISONE 20 MG ORAL TABLET 2 tabs daily for 3 days, 1 tab daily for 3 days, 1/2 tab daily for 2 days PREDNISONE 44068075770 No Longer Active Checo Conklin MD Active ZITHROMAX Z-KARTHIK 250 MG ORAL TABLET 2 today, then 1 daily for 4 d ays AZITHROMYCIN 58458263355 No Longer Active Paul Hamlin MD Active FOCALIN XR 10 MG ORAL CAPSULE EXTENDED RELEASE 24 HOUR 1 po q a. m. DEXMETHYLPHENIDATE HCL 89029066657 No Longer Active Paul Hamlin MD Active PERCOCET 10-325 MG ORAL TABLET 1 tablet every 6 hours as needed for pain OXYCODONE-ACETAMINOPHEN 88595608229 No Longer Active Paul Hamlin MD Active LORTAB 5-500 MG ORAL TABLET 1/2 to 1 tablet by mouth e very 4 hours as needed for pain HYDROCODONE-ACETAMINOPHEN 16221608207 No Longer Active Checo Conklin MD Active FOCALIN XR 15 MG ORAL CAPSULE EXTENDED RELEASE 24 HOUR 1 po q a. m. DEXMETHYLPHENIDATE HCL 32271907341 No Longer Active Checo Conklin MD Active ZOFRAN ODT 4 MG ORAL TABLET DISINTEGRATING 1 po q6hr PRN Nausea ONDANSETRON 27746955594 No Longer Active Checo Conklin MD Active PERCOCET 5-325 MG ORAL TABLET 1 tablet by mouth every 6 hour s as needed OXYCODONE-ACETAMINOPHEN 65259061435 No Longer Active Checo Conklin MD Active PYRIDIUM 200 MG ORAL TABLET take 1 tab po TID prn urinary pain. PHENAZOPYRIDINE HCL 97727798538 No Longer Active Checo Joshua Active FLUCONAZOLE 150 MG ORAL TABLET take 1 tab po qday once FLUCONAZOLE 63031290230 No Longer Active Dangelo Rangel MD Acti ve CIPRO 500 MG ORAL TABLET 1 tablet by mouth twice daily CIPROFLOXACIN HCL 70913319225 No Longer Active Dangelo Rangel MD Active PYRIDIUM 200 MG ORAL TABLET take 1 tab po TID prn urinary pain. PYRIDIUM 200 MG ORAL TABLET 5738557 PHENAZOPYRIDINE HCL Inactive PERCOCET 5-325 MG ORAL TABLET 1 tablet by mouth every 6 hour s as needed PERCOCET 5-325 MG ORAL TABLET 6182237 OXYCODONE-ACETAMINOPHEN Inactive ZOFRAN ODT 4 MG ORAL TABLET DISINTEGRATING 1 po q6hr PRN Nausea ZOFRAN ODT 4 MG ORAL TABLET DISINTEGRATING 825979 ONDAN SETRON Inactive FOCALIN XR 15 MG [...] for pain PERCOCET 10-325 MG ORAL TABLET 2196766 OXYCODONE-ACETAMI NOPHEN Inactive FOCALIN XR 10 MG ORAL CAPSULE EXTENDED RELEASE 24 HOUR 1 po q a. m. FOCALIN XR 10 MG ORAL CAPSULE EXTENDED RELEASE 24 HOUR DEXMETHYLPHENIDATE HCL Inactive CEFDINIR 300 MG ORAL CAPSULE 1 po bid CEFDINI R 300 MG ORAL CAPSULE 594494 CEFDINIR Inactive ANTIPYRINE-BENZOCAINE 5.4-1.4 % OTIC SOLUTION 1-2 drops in affec yohannes ear ANTIPYRINE-BENZOCAINE 5.4-1.4 % OTIC SOLUTION 998724 BENZOCAINE-ANTIPYRINE Inactive FLONASE 50 MCG/ACT NASAL SUSPENSION 1 spray each nostril am and hs FLONASE 50 MCG/ACT NASAL SUSPENSION 0348324 FLUTICASONE PROPIONATE I nactive PHENERGAN CREAM* 25mg applied to wrist q6hr PRN Nausea PHENERGAN CREAM* Inactive FIORICET 325-50-40 MG TAB 1 tablet by mouth four times daily as needed FIORICET 325-50-40 MG TAB ACETAMINOPHEN-C AFF-BUTALBITAL Inactive TRAZODONE HCL 100 MG ORAL TABLET 0.5 to 1 po qHS PRN Insomnia 20 30/07/08 TRAZODONE HCL 100 MG ORAL TABLET 272551 TRAZODONE HCL Inactive CONCERTA 18 MG ORAL [...] cough HYDROCODONE-ACETAMINOPHEN 5-325 MG ORAL TABLET 8 71286 HYDROCODONE-ACETAMINOPHEN Inactive PHENAZOPYRIDINE HCL 200 MG ORAL TABLET take 1 tab po TID for bladder pain PHENAZOPYRIDINE HCL 200 MG ORAL TABLET 8587519 PHENAZOPYRIDINE HCL Inactive HYDROCODONE-ACETAMINOPHEN 5-325 MG ORAL TABLET 1 po q 6hr PRN Pa in HYDROCODONE-ACETAMINOPHEN 5-325 MG ORAL TABLET 128209 HYDROCODONE-ACETAMINOPHEN Inactive CELEXA 20 MG ORAL TABLET 1 tablet by mouth daily 09/26 CELEXA 20 MG ORAL TABLET 821511 CITALOPRAM HYDROBROMIDE Inactive REGLAN 10 MG ORAL TABLET 1 po TID PRN Nausea 3 REGLAN 10 MG ORAL TABLET 455097 METOCLOPRAMIDE HCL Inactive LAMISIL 250 MG ORAL TABLET 1 po qd L AMISIL 250 MG ORAL TABLET 695068 TERBINAFINE HCL Inactive DICLOFENAC SODIUM 75 MG ORAL TABLET DELAYED RELEASE 1 tablet by mouth twice daily PRN Knee pain DICLOFENAC SODIUM 75 MG ORAL TABLET DELAYED RELEASE 526212 DICLOFENAC SODIUM Inactive METOCLOPRAMIDE HCL 10 MG ORAL TABLET take one PO tid PRN nausea METOCLOPRAMIDE HCL 10 MG ORAL TABLET 395377 METOCLOPRAM ZACH HCL Inactive TERBINAFINE HCL 250 MG ORAL TABLET take one table PO one time da moises TERBINAFINE HCL 250 MG ORAL TABLET 333001 TERBINAFINE H CL Inactive BUPROPION HCL ER [...] SICKNESS 25 M G ORAL TABLET CHEWABLE 246894 MECLIZINE HCL Inactive SUMATRIPTAN SUCCINATE 100 MG ORAL TABLET Take one PRN for migran e SUMATRIPTAN SUCCINATE 100 MG ORAL TABLET 519768 SUMATRIPTAN SUCCINATE Inactive COMPRO 25 MG RECTAL SUPPOSITORY insert or apply one garza ppository rectally as directed every 12 hours as needed for nausea COMPRO 25 MG RECTAL SUPPOSITORY 700518 PROCHLORPERAZINE Inactive ONDANSETRON 8 MG ORAL TABLET DISINTEGRATING place one tablet on tongue and allow to dissolve every 6 hours as needed for vomitting ONDANSETRON 8 MG ORAL TABLET DISINTEGRATING 811867 ONDANSETRON Inactive HYDROCODONE-ACETAMINOPHEN 5-325 MG ORAL TABLET 0.5 to 1 tab by mouth every 6 hours as needed HYDROCODONE-ACETAMIN OPHEN 5-325 MG ORAL TABLET 975642 HYDROCODONE-ACETAMINOPHEN Inactive BACTRIM DS 800-160 MG ORAL TABLET 1 tab by mouth twice daily 201 11/23/03 BACTRIM DS 800-160 MG ORAL TABLET 948924 TRIMETHOPRIM-SULFAMETHOXAZOLE Inactive DIFLUCAN 150 MG ORAL TABLET [...] as needed HYDROCODONE-ACETAMINOPHEN 5-325 MG ORAL TABLET 734214 HYDROCODONE-ACETAMINOPHEN Inactive BACTROBAN 2 % EXTERNAL CREAM Apply to affected area BID for up to 10 days BACTROBAN 2 % EXTERNAL CREAM 685354 MUPIROCIN CA LCIUM Inactive MAGNESIUM CITRATE 1.745 GM/30ML ORAL SOLUTION 150ml po BID P RN Constipation MAGNESIUM CITRATE 1.745 GM/30ML ORAL SOLUTION 10 75273 MAGNESIUM CITRATE Inactive DIFLUCAN 150 MG ORAL TABLET 1 tablet by mouth qod 2015 DIFLUCAN 150 MG ORAL TABLET 680817 FLUCONAZOLE Inactive BACTRIM DS 800-160 MG ORAL TABLET 1 tab by mouth twice daily 201 12/19/26 BACTRIM DS 800-160 MG ORAL TABLET 428817 TRIMETHOPRIM-SULFAMETHOXAZOLE Inactive CLARITIN 10 MG ORAL TABLET 1 tablet by mouth daily as needed for allergies CLARITIN 10 MG ORAL TABLET 887368 LORATADINE I nactive FLUTICASONE PROPIONATE 50 MCG/ACT NASAL SUSPENSION 2 s prays/nostril qd PRN Congestion/Allergies FLUTICASONE PROPION ATE 50 MCG/ACT NASAL SUSPENSION 1965827 FLUTICASONE PROPIONATE Inactive MIRALAX ORAL POWDER 8.5 to 17g po qd PRN Constipation MIRALAX ORAL POWDER 487276 POLYETHYLENE GLYCOL 3350 Inactive CIPRO 500 MG ORAL TABLET 1 tablet by mouth twice daily CIPRO 500 MG ORAL TABLET 954418 CIPROFLOXACIN HCL Inactive FLUCONAZOLE 150 MG ORAL TABLET take 1 tab po qday once FLUCONAZOLE 150 MG ORAL TABLET 419924 FLUCONAZOLE Inactive ZITHROMAX Z-KARTHIK 250 MG ORAL TABLET 2 today, then 1 daily for 4 d ays ZITHROMAX Z-KARTHIK 250 MG ORAL TABLET 691719 AZITHROMYCIN Inactive PREDNISONE 20 MG ORAL TABLET 2 tabs daily for 3 days, 1 tab daily for 3 days, 1/2 tab daily for 2 days PREDNISONE 20 MG ORAL T ABLET 209388 PREDNISONE Inactive AZITHROMYCIN 250 MG ORAL TABLET 2 po qd x 1 day, then 1 po q d x 4 days AZITHROMYCIN 250 MG ORAL TABLET 079951 AZITHROMY SPARKLE Inactive PREDNISONE 20 MG ORAL TABLET 2 tabs daily for 3 days, 1 tab daily for 3 days, 1/2 tab daily for 2 days PREDNISONE 20 MG ORAL TABLET 370190 PREDNISONE Inactive CEFDINIR 300 MG ORAL CAPSULE by mouth twice a day 2013 CEFDINIR 300 MG ORAL CAPSULE 004555 CEFDINIR Inactive TRIAMCINOLONE ACETONIDE 0.1 % EXTERNAL OINTMENT Apply to affected areas TID for up to 2 weeks TRIAMCINOLONE ACETON ZACH 0.1 % EXTERNAL OINTMENT 2848564 TRIAMCINOLONE ACETONIDE Inactive PREDNISONE 20 MG ORAL TABLET 2 tabs daily for 3 days, 1 tab daily for 3 days, 1/2 tab daily for 2 days [facility]ISONE [facility] 2305[facility] PREDNISONE Inactive BACTRIM DS 800-160 MG ORAL TABLET 1 po BID x 7 days 29/04/10 BACTRIM DS 800-160 MG ORAL TABLET 465048 SULFAMETHOXAZOLE-TRIMETHOP RIM Inactive CIPRO 500 MG ORAL TABLET 1 tablet by mouth twice daily CIPRO 500 MG ORAL TABLET 209342 CIPROFLOXACIN HCL Inactive AZITHROMYCIN 250 MG ORAL TABLET 2 po qd x 1 day, then 1 po q d x 4 days AZITHROMYCIN 250 MG ORAL TABLET 219817 AZITHROMY SPARKLE Inactive FLAGYL 500 MG ORAL TABLET 1 tablet by mouth bid 04/13 FLAGYL 500 MG ORAL TABLET 719534 METRONIDAZOLE Inactive AZITHROMYCIN 250 MG ORAL TABLET 2 po qd x 1 day, then 1 po q d x 4 days AZITHROMYCIN 250 MG ORAL TABLET 407629 AZITHROMY SPARKLE Inactive AMOXICILLIN 500 MG ORAL CAPSULE 2 po BID x 10 days 201 01/15/27 AMOXICILLIN 500 MG ORAL CAPSULE 829590 AMOXICILLIN Inactive AMOXICILLIN 500 MG ORAL CAPSULE 2 po BID x 14 days for H. Pylori AMOXICILLIN 500 MG ORAL CAPSULE 281487 AMOXICILLIN Inactive CLARITHROMYCIN 500 MG ORAL TABLET 1 tab po BID x 14 days CLARITHROMYCIN 500 MG ORAL TABLET 357550 CLARITHROMYCIN Inacti ve FLAGYL 500 MG ORAL TABLET 1 tablet by mouth bid 08/29 FLAGYL 500 MG ORAL TABLET 273676 METRONIDAZOLE Inactive PROTONIX 40 MG ORAL TABLET DELAYED RELEASE 1 pill by m outh daily, for acid reflux PROTONIX 40 MG ORAL TABLET DELAYED RELEAS E 345079 PANTOPRAZOLE SODIUM Inactive Immunizations Vaccine Administration Date [...] ... - Chemistry sodium, serum 139 mmol/L 905-516 4288/11/28 carbon dioxide, venous blood 26.0 mmol/L 21.0-32 [...] 5.0-8.5 Encounters Code Encounter Date Provider Facility CPT-14950 Level 4 Est. Patient 08:57:51 CHEMIST ENZYMES Checo Conklin MD [facility] CPT-77440 Level 3 Est. Patient 11:24:55 CHEMIST ENZYMES Efren almendarez [facility] CPT-33525 Level 3 Est. Patient 13:05:44 CDT Paul Hamlin MD [facility] CPT-27484 Level 3 Est. Patient 11:29:55 CDT Checo Conklin MD [facility] CPT-16413 Level 4 Est. Patient 11:08:12 CHEMIST ENZYMES Checo Conklin MD [facility] CPT-69728 Level 4 Est. Patient 16:06:48 CHEMIST ENZYMES Checo Conklin MD [facility] CPT-70224 Level 3 Est. Patient 09:11:49 CDT Efren almendarez [facility] CPT-38970 Level 2 Est. Patient 19:53:27 CDT Tanner hill MD [facility] CPT-65706 Level 3 Est. Patient 09:15:34 CDT Efren almendarez [facility] CPT-07225 Level 3 Est. Patient 11:28:51 CHEMIST ENZYMES Efren almendarez [facility] CPT-39581 Level 4 Est. Patient 13:55:46 CHEMIST ENZYMES Checo Conklin MD [facility] CPT-39402 Level 4 Est. Patient 17:10:53 CDT Checo Conklin MD [facility] CPT-28834 Level 3 Est. Patient 15:56:22 CDT Checo Conklin MD [facility] CPT-88286 Level 3 Est. Patient 15:29:07 CDT Checo Conklin MD [facility] CPT-78907 Level 3 Est. Patient 14:38:41 CDT Checo Conklin MD [facility] CPT-93602 Level 3 Est. Patient 15:22:03 CHEMIST ENZYMES Thomas reynolds DO [facility] CPT-67670 Level 3 Est. Patient 13:34:17 CHEMIST ENZYMES Checo Conklin MD [facility] CPT-00274 Level 3 Est. Patient 12:29:32 CDT Dangelo arroyo MD [facility] CPT-37882 Level 3 Est. Patient 16:53:02 CDT Checo Conklin MD [facility] CPT-58578 Level 3 Est. Patient 16:37:13 CDT Checo Conklin MD [facility] CPT-95264 Level 3 Est. Patient 16:16:59 CDT Paul Hamlin MD [facility] CPT-68851 Level 3 Est. Patient 14:20:13 CDT Dangelo arroyo MD [facility] CPT-78269 Level 4 Est. Patient 11:29:33 CDT Checo Conklin MD [facility] CPT-52407 Level 3 Est. Patient 17:08:31 CDT Checo Conklin MD [facility] CPT-70958 Level 3 Est. Patient 16:50:42 CHEMIST ENZYMES Checo Conklin MD [facility] CPT-88338 Level 4 Est. Patient 09:26:08 CHEMIST ENZYMES Checo Conklin MD [facility] CPT-06968 Level 3 Est. Patient 11:37:10 CDT Checo Conklin MD [facility] CPT-32123 Level 4 Est. Patient 14:07:38 CDT Checo Conklin MD [facility] CPT-09065 Level 3 Est. Patient 09:54:41 CDT Checo Conklin MD [facility] CPT-95112 Level 3 Est. Patient 11:10:54 CDT Paul Hamlin MD [facility] CPT-40479 Level 3 Est. Patient 14:16:56 CHEMIST ENZYMES Checo Conklin MD [facility] CPT-83910 Level 3 Est. Patient 11:04:11 CHEMIST ENZYMES Checo Conklin MD [facility] CPT-93151 Level 3 Est. Patient 17:09:26 CDT Dangelo arroyo MD [facility] CPT-94647 Level 3 Est. Patient 16:54:37 CDT Checo Conklin MD [facility] Procedures Code Procedure Name Date Entry Date Standard Desc ription CPT-17413 Abd compl w upright - XRAY USE ONLY 1 1:36:54 CHEMIST ENZYMES CPT-57303 UA w micro - LAB USE ONLY 17:06:46 CDT 2015 CPT-72084 BHCG Qual - LAB USE ONLY 17:06:46 CDT 05/06 CPT-25985 CMP - LAB USE ONLY 17:06:46 CDT CPT-31698 CBC with Diff - LAB USE ONLY 17:06:45 CDT 2 CPT-91121 Venipuncture Draw Fee 17:06:45 CDT CPT-LR Lesion Removal 19:53:27 CDT CPT-OV Office Visit 11:31:28 CDT CPT-57357 Tubersol 09:39:29 CDT CPT-J2550 Phenergan 25 mg (Promethazine) 13:59:02 CHEMIST ENZYMES CPT-J1885 Toradol 60 mg (Ketorolac) 13:59:02 CHEMIST ENZYMES 2012
--- OUTSIDE RECORDS SUMMARY | 2019-09-29 01:31 | XMS REPORT | Clinical Summary ---
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 Tanner Carrillo MD Neoplasm of uncertain behavior of skin Abdominal pain, generalized 789.07 Active Jillina Frazell MULTI LINE CLAIMS ADJUSTER Abdominal pain, generalized Urinary frequency 788.41 Active Jillina Frazell MULTI LINE CLAIMS ADJUSTER Urinary frequency BREAST CANCER ICD-V16.3 Inactive Checo Joshua DIABETES ICD-V18.0 Inactive Checo Conklin MD 201 08/27/26 CONCUSSION ICD-850.9 Inactive Checo Joshua UTI ICD-599.0 Inactive Checo Conklin MD 2013 ABDOMINAL PAIN RIGHT LOWER QUADRANT ICD-789.03 Inactive Checo Conklin MD HEADACHE, TENSION ICD-307.81 Inactive Checo Conklin MD PHARYNGITIS ICD-462 Inactive Checo Cnoklin MD OTITIS MEDIA-RIGHT ICD-382.9 Inactive Checo Conklin [...] tab by mouth twice daily 2 TRIMETHOPRIM-SULFAMETHOXAZOLE 38409259273 No Longer Active Tanner Carrillo MD Active DIFLUCAN 150 MG TAB 1 tablet by mouth qod FLUCO NAZOLE 94140156819 No Longer Active Efren Medel APRN Active CLARITIN 10 MG TAB 1 tablet by mouth daily as needed for allergies LORATADINE 75026746958 Active Jillina Frazell MULTI LINE CLAIMS ADJUSTER Active AZITHROMYCIN 250 MG TABS 2 po qd x 1 day, then 1 po qd x 4 days AZITHROMYCIN 30089817818 No Longer Active Jillina Lizy MAX Active FLAGYL 500 MG TAB 1 tablet by mouth bid METRONI DAZOLE 87165170329 No Longer Active Checo Conklin MD Active FOCALIN XR 10 MG ORAL [id number] 1 po q a.m. DEX METHYLPHENIDATE HCL 50979780631 Active Checo Conklin MD Active MAGNESIUM CITRATE 1.745 GM/30ML ORAL SOLN 150ml po BID PRN C onstipation MAGNESIUM CITRATE 00758755161 No Longer Active Checo Conklin MD Active BACTROBAN 2 % CREAM Apply to affected area BID for up to 10 days MUPIROCIN CALCIUM 85472005340 No Longer Active Checo Conklin MD Active HYDROCODONE-ACETAMINOPHEN 5-325 MG TABS 1 tab by mouth every 6 hours as needed HYDROCODONE-ACETAMINOPHEN 47302438360 No Longer Activ e Checo Conklin MD Active IBUPROFEN 800 MG TABS 1 tab every 8 hours with food 31/03/21 IBUPROFEN 27198602373 No Longer Active Checo Conklin MD Activ e DIFLUCAN 150 MG TAB 1 tablet by mouth if needed, hold until symptoms start FLUCONAZOLE 72674438812 No Longer Active Checo Ortiz MD Active BACTRIM DS 800-160 MG TAB 1 tab by mouth twice daily 2 TRIMETHOPRIM-SULFAMETHOXAZOLE 32947523296 No Longer Active Corry leong LPN Active MIRALAX PACK 1 po qd PRN Constipation POLYETHYL JOEL GLYCOL 3350 75415766276 Active Checo Conklin MD Active HYDROCODONE-ACETAMINOPHEN 5-325 MG TABS 0.5 to 1 tab b y mouth every 6 hours as needed HYDROCODONE-ACETAMINOPHEN 77690435713 No Longer Active Checo Conklin MD Active ONDANSETRON [address] one tablet on tongue and allow to dissolve every 6 hours as needed for vomitting ONDANSETRO N 86712437052 No Longer Active Checo Conklin MD Active COMPRO 25 MG RECTAL SUPP insert or apply one supposit ory rectally as directed every 12 hours as needed for nausea PROCHLORPERA ZINE 55372384936 No Longer Active Checo Conklin MD Active SUMATRIPTAN SUCCINATE 100 MG ORAL TABS Take one PRN for migrane SUMATRIPTAN SUCCINATE 21101632435 No Longer Active Checo Conklin MD Active TRAVEL SICKNESS 25 MG ORAL CHEW chew and swallow one t ablet every 6 hours as needed MECLIZINE HCL 65427393724 No Longer Active Joe Conklin MD Active BUPROPION HCL ER (SR) 100 MG ORAL [id number] take one t ablet by mouth one time daily for one week then take 1 two times daily BUPROPION HCL 91561092379 No Longer Active Checo Conklin MD Activ e TERBINAFINE HCL 250 MG ORAL TABS take one table PO one time abran y TERBINAFINE HCL 23892044646 No Longer Active Checo Conklin MD Active METOCLOPRAMIDE HCL 10 MG ORAL TABS take one PO tid PRN nausea 20 29/12/14 METOCLOPRAMIDE HCL 95400359723 No Longer Active Checo Conklin MD Active DICLOFENAC SODIUM 75 MG TBEC 1 tablet by mouth twice daily P RN Knee pain DICLOFENAC SODIUM 37410443513 No Longer Active Checo Conklin MD Active LAMISIL 250 MG TAB 1 po qd TERBINAFINE HCL 548 30471201 No Longer Active Checo Conklin MD Active REGLAN 10 MG TAB 1 po TID PRN Nausea METOCLOPRA MIDE HCL 69273672995 No Longer Active Checo Conklin MD Active CELEXA 20 MG TABS 1 tablet by mouth daily CITALOPRAM HYDROBROMIDE 61436391828 No Longer Active Checo Conklin MD Activ e AZITHROMYCIN 250 MG TABS 2 po qd x 1 day, then 1 po qd x 4 days AZITHROMYCIN 63725232134 No Longer Active Checo Conklin MD Active HYDROCODONE-ACETAMINOPHEN 5-325 MG TABS 1 po q 6hr PRN Pain 2013 HYDROCODONE-ACETAMINOPHEN 42089269744 No Longer Active Lenora Conklin MD Active PHENAZOPYRIDINE HCL 200 MG TABS take 1 tab po TID for bladder pa in PHENAZOPYRIDINE HCL 73894127273 No Longer Active Checo Joshua Active CIPRO 500 MG TAB 1 tablet by mouth twice daily CIPROFLOXACIN HCL 98953540428 No Longer Active Dangelo Rangel MD Active HYDROCODONE-ACETAMINOPHEN 5-325 MG TABS 1/2 to 1 po q 4 hour s prn cough HYDROCODONE-ACETAMINOPHEN 92388508710 No Longer Activ e Dangelo Rangel MD Active BACTRIM DS 800-160 MG TABS 1 po BID x 7 days 0 SULFAMETHOXAZOLE-TRIMETHOPRIM 56599539407 No Longer Active Checo Conklin MD Active PREDNISONE 20 MG TAB 2 tabs daily for 3 days, 1 t ab daily for 3 days, 1/2 tab daily for 2 days PREDNISONE 83953647345 No Longer Active Checo Conklin MD Active TRIAMCINOLONE ACETONIDE 0.1 % OINT Apply to affected a reas TID for up to 2 weeks TRIAMCINOLONE ACETONIDE 59046981824 No Longer A ctive Checo Conklin MD Active CEFDINIR 300 MG CAPS by mouth twice a day CEFDI JAZZY 09061648104 No Longer Active Dangelo Rangel MD Active BUPROPION HCL (SMOKING DETER) 150 MG [id number] 1 a day for 1 week then 1 twice a day BUPROPION HCL (SMOKING DETER) 69227330904 No Lo nger Active Checo Conklin MD Active SIMVASTATIN 20 MG TABS 1 po qd SIMVASTATIN 6074654949 5 Active Checo Conklin MD Active CHANTIX STARTING MONTH KARTHIK 0.5 MG X 11 & 1 MG X 42 TAB S 0.5mg daily for 3 days, then 0.5mg BID for 4 days, then 1mg BID VARENICLINE TARTRATE 92289652715 No Longer Active Checo Conklin MD Activ e XANAX 0.5 MG TABS 1 po BID PRN anxiety ALPRAZOLAM 17399755733 Active Checo Conklin MD Active CONCERTA 18 MG CR-TABS 1 po q a.m. METHYLPHENID ATE HCL 05852392856 No Longer Active Checo Conklin MD Active AMBIEN 5 MG TAB 1 po qHS PRN Insomnia ZOLPIDEM TARTRATE 75063383560 Active Checo Conklin MD Active TRAZODONE HCL 100 MG TAB 0.5 to 1 po qHS PRN Insomnia TRAZODONE HCL 30197967379 No Longer Active Checo Conklin MD Acti ve FIORICET 325-50-40 MG TAB 1 tablet by mouth four times daily as needed [id number] 91792679117 No Longer Active Checo Conklin MD Active PHENERGAN CREAM* 25mg applied to wrist q6hr PRN Nausea PHENERGAN CREAM* No Longer Active Checo Conklin MD A ctive FLONASE 50 MCG/ACT SUSP 1 spray each nostril am and hs FLUTICASONE PROPIONATE 86636887169 No Longer Active Checo Simms e ANTIPYRINE-BENZOCAINE 5.4-1.4 % SOLN 1-2 drops in affected ear BENZOCAINE-ANTIPYRINE 22211355789 No Longer Active Checo Conklin MD Active CEFDINIR 300 MG CAPS 1 po bid CEFDINIR 64949803 120 No Longer Active Checo Conklin MD Active PREDNISONE 20 MG TAB 2 tabs daily for 3 days, 1 t ab daily for 3 days, 1/2 tab daily for 2 days PREDNISONE 18851225325 No Longer Active Aracelis Conklin MD Active AZITHROMYCIN 250 MG TABS 2 po qd x 1 day, then 1 po qd x 4 days AZITHROMYCIN 56949484777 No Longer Active Checo Conklin MD Active PREDNISONE 20 MG TAB 2 tabs daily for 3 days, 1 t ab daily for 3 days, 1/2 tab daily for 2 days PREDNISONE 36889664581 No Longer Active Checo Conklin MD Active ZITHROMAX Z-KARTHIK 250 MG TABS 2 today, then 1 daily for 4 days 201 09/18/28 AZITHROMYCIN 03035190892 No Longer Active Paul Hamlin MD Active FOCALIN XR 10 MG [id number] 1 po q a.m. D EXMETHYLPHENIDATE HCL 88918031672 No Longer Active Paul Hamlin MD Activ e PERCOCET 10-325 MG TABS 1 tablet every 6 hours as needed for pain OXYCODONE-ACETAMINOPHEN 50664762136 No Longer Active Paul Hamlin MD Active LORTAB 5 5-500 MG TABS 1/2 to 1 tablet by mouth flaquito ry 4 hours as needed for pain HYDROCODONE-ACETAMINOPHEN 14874281610 No Longer Active Checo Conklin MD Active FOCALIN XR 15 MG [id number] 1 po q a.m. D EXMETHYLPHENIDATE HCL 49110906178 No Longer Active Checo Conklin MD Activ e ZOFRAN ODT 4 MG TBDP 1 po q6hr PRN Nausea ONDAN SETRON 61949385032 No Longer Active Checo Conklin MD Active PERCOCET 5-325 MG TABS 1 tablet by mouth every 6 hours as needed OXYCODONE-ACETAMINOPHEN 66915703548 No Longer Active Checo Conklin MD Active PYRIDIUM 200 MG TABS take 1 tab po TID prn urinary pain. 0 PHENAZOPYRIDINE HCL 47889606672 No Longer Active Checo Conklin MD Active FLUCONAZOLE 150 MG TABS take 1 tab po qday once 04/06 FLUCONAZOLE 17822377787 No Longer Active Dangelo Rangel MD Acti ve CIPRO 500 MG TAB 1 tablet by mouth twice daily CIPROFLOXACIN HCL 28789545597 No Longer Active Dangelo Rangel MD Active PYRIDIUM 200 MG TABS take 1 tab po TID prn urinary pain. 0 PYRIDIUM 200 MG TABS 0136840 PHENAZOPYRIDINE HCL Inactive PERCOCET 5-325 MG TABS 1 tablet by mouth every 6 hours as needed PERCOCET 5-325 MG TABS 4611683 OXYCODONE-ACETAMINOPHEN I nactive ZOFRAN ODT 4 MG TBDP 1 po q6hr PRN Nausea ZOFRAN ODT 4 MG TBDP 575850 ONDANSETRON Inactive FOCALIN XR 15 MG [id number] 1 po q a.m. F OCALIN XR 15 MG [id number]-KNS DEXMETHYLPHENIDATE HCL Inactive LORTAB 5 5-500 MG TABS 1/2 to 1 tablet by mouth flaquito ry 4 hours as needed for pain LORTAB 5 5-500 MG TABS HYDROCODONE-A CETAMINOPHEN Inactive PERCOCET 10-325 MG TABS 1 tablet every 6 hours as needed for pain PERCOCET 10-325 MG TABS 8558060 OXYCODONE-ACETAMINOPHEN Inactive FOCALIN XR 10 MG [id number] 1 po q a.m. F OCALIN XR 10 MG [id number]-HLY DEXMETHYLPHENIDATE HCL Inactive CEFDINIR 300 MG CAPS 1 po bid CEFDINIR 300 MG CAPS 20 0346 CEFDINIR Inactive ANTIPYRINE-BENZOCAINE 5.4-1.4 % SOLN 1-2 drops in affected ear ANTIPYRINE-BENZOCAINE 5.4-1.4 % SOLN 486779 BENZOCAINE-ANTIPYRINE I nactive FLONASE 50 MCG/ACT SUSP [...] PRN Insomnia TRAZODONE HCL 100 MG TAB 061079 TRAZODONE HCL Inactive CONCERTA 18 MG CR-TABS [...] s prn cough HYDROCODONE-ACETAMINOPHEN 5-325 MG TABS 392281 HYDROCODONE-ACETAMINOPHEN Inactive PHENAZOPYRIDINE HCL 200 MG TABS take 1 tab po TID for bladder pa in PHENAZOPYRIDINE HCL 200 MG TABS 2990320 PHENAZOPYRIDINE HCL Inactive HYDROCODONE-ACETAMINOPHEN 5-325 MG TABS 1 po q 6hr PRN Pain 2013 HYDROCODONE-ACETAMINOPHEN 5-325 MG TABS 909913 HYDROCODONE-ACETAMINOPHEN Inactive CELEXA 20 MG TABS 1 tablet by mouth daily CELEXA 20 MG TABS 141948 CITALOPRAM HYDROBROMIDE Inactive REGLAN 10 MG TAB 1 po TID PRN Nausea REGLAN 10 MG TAB 481599 METOCLOPRAMIDE HCL Inactive LAMISIL 250 MG TAB 1 po qd LAMISIL 250 MG TAB 986105 TERBINAFINE HCL Inactive DICLOFENAC SODIUM 75 MG TBEC 1 tablet by mouth twice daily P RN Knee pain DICLOFENAC SODIUM 75 MG TBEC 242625 DICLOFENAC S ODIUM Inactive METOCLOPRAMIDE HCL 10 MG ORAL TABS take one PO tid PRN nausea 20 29/12/14 METOCLOPRAMIDE HCL 10 MG ORAL TABS 874082 METOCLOPRAMID E HCL Inactive TERBINAFINE HCL 250 MG ORAL TABS take one table PO one time abran y TERBINAFINE HCL 250 MG ORAL TABS 021367 TERBINAFINE HCL Inactive BUPROPION HCL ER (SR) 100 MG ORAL [id number] take one t ablet by mouth one time daily for one week then take 1 two times daily BUPROPION HCL ER (SR) 100 MG ORAL [id number] BUPROPION HCL Inacti ve TRAVEL SICKNESS 25 MG ORAL CHEW chew and swallow one t ablet every 6 hours as needed TRAVEL SICKNESS 25 MG ORAL CHEW 872882 MECLIZINE HCL Inactive SUMATRIPTAN SUCCINATE 100 MG ORAL TABS Take one PRN for migrane SUMATRIPTAN SUCCINATE 100 MG ORAL TABS 430305 SUMATRIPT AN SUCCINATE Inactive COMPRO 25 MG RECTAL SUPP insert or apply one supposit ory rectally as directed every 12 hours as needed for nausea COMP RO 25 MG RECTAL SUPP 682262 PROCHLORPERAZINE Inactive ONDANSETRON [address] one tablet on tongue and allow to dissolve every 6 hours as needed for vomitting ON DANSETRON 8 MG ORAL TBDP 926144 ONDANSETRON Inactive HYDROCODONE-ACETAMINOPHEN 5-325 MG TABS 0.5 to 1 tab b y mouth every 6 hours as needed HYDROCODONE-ACETAMINOPHEN 5-325 MG TABS 8 26498 HYDROCODONE-ACETAMINOPHEN Inactive BACTRIM DS 800-160 MG TAB 1 tab by mouth twice daily 2 BACTRIM DS 800-160 MG TAB 19820918 TRIMETHOPRIM-SULFAMETHOXAZOLE Inac tive DIFLUCAN 150 MG TAB 1 tablet by mouth if needed, hold until symptoms start DIFLUCAN 150 MG TAB 19760325 FLUCONAZOLE Inactive IBUPROFEN 800 MG TABS 1 tab every 8 hours with food 20 31/03/21 IBUPROFEN 800 MG TABS 713149 IBUPROFEN Inactive HYDROCODONE-ACETAMINOPHEN 5-325 MG TABS 1 tab by mouth every 6 hours as needed HYDROCODONE-ACETAMINOPHEN 5-325 MG TABS 182389 HYDROCODONE-ACETAMINOPHEN Inactive BACTROBAN 2 % CREAM Apply to affected area BID for up to 10 days BACTROBAN 2 % CREAM 291089 MUPIROCIN CALCIUM Inactive MAGNESIUM CITRATE 1.745 GM/30ML ORAL SOLN 150ml po BID PRN C onstipation MAGNESIUM CITRATE 1.745 GM/30ML ORAL SOLN 991101 0 MAGNESIUM CITRATE Inactive DIFLUCAN 150 MG TAB 1 tablet by mouth qod DIFLUCAN 150 MG TAB 274183 FLUCONAZOLE Inactive BACTRIM DS 800-160 MG TAB 1 tab by mouth twice daily 2 BACTRIM DS 800-160 MG TAB 152038 TRIMETHOPRIM-SULFAMETHOXAZOLE Inac tive CIPRO 500 MG TAB 1 tablet by mouth twice daily CIPRO 500 MG TAB 079443 CIPROFLOXACIN HCL Inactive FLUCONAZOLE 150 MG TABS take 1 tab po qday once 04/06 FLUCONAZOLE 150 MG TABS 19760325 FLUCONAZOLE Inactive ZITHROMAX Z-KARTHIK 250 MG TABS 2 today, then 1 daily for 4 days 201 09/18/28 ZITHROMAX Z-KARTHIK 250 MG TABS 5671374 AZITHROMYCIN Inac tive PREDNISONE 20 MG TAB 2 tabs daily for 3 days, 1 t ab daily for 3 days, 1/2 tab daily for 2 days PREDNISONE 20 MG TAB 564887 PREDNISON E Inactive AZITHROMYCIN 250 MG TABS 2 po qd x 1 day, then 1 po qd x 4 days AZITHROMYCIN 250 MG TABS 6155160 AZITHROMYCIN Inactiv e PREDNISONE 20 MG TAB 2 tabs daily for 3 days, 1 t ab daily for 3 days, 1/2 tab daily for 2 days PREDNISONE 20 MG TAB 022339 PREDNISON E Inactive CEFDINIR 300 MG CAPS by mouth twice a day CEFDINIR 300 MG CAPS 754559 CEFDINIR Inactive TRIAMCINOLONE ACETONIDE 0.1 % OINT Apply to affected a reas TID for up to 2 weeks TRIAMCINOLONE ACETONIDE 0.1 % OINT 115410 6 TRIAMCINOLONE ACETONIDE Inactive PREDNISONE 20 MG TAB 2 tabs daily for 3 days, 1 t ab daily for 3 days, 1/2 tab daily for 2 days PREDNISONE 20 MG TAB 531521 PREDNISON E Inactive BACTRIM DS 800-160 MG TABS 1 po BID x 7 days 0 BACTRIM DS 800-160 MG TABS 855391 SULFAMETHOXAZOLE-TRIMETHOPRIM Inactive CIPRO 500 MG TAB 1 tablet by mouth twice daily CIPRO 500 MG TAB 583780 CIPROFLOXACIN HCL Inactive AZITHROMYCIN 250 MG TABS 2 po qd x 1 day, then 1 po qd x 4 days AZITHROMYCIN 250 MG TABS 4809619 AZITHROMYCIN Inactiv e FLAGYL 500 MG TAB 1 tablet by mouth bid FLAGYL 500 MG TAB 202110 METRONIDAZOLE Inactive AZITHROMYCIN 250 MG TABS 2 po qd x 1 day, then 1 po qd x 4 days AZITHROMYCIN 250 MG TABS 7580506 AZITHROMYCIN Inactiv e Immunizations Vaccine Administration Date [...] CBC W/DIFF, Comp. Metabolic Panel, Qual [facility] [place] - Chemistry sodium, serum 139 mmol/L 444-275 4130/10/21 carbon dioxide, venous blood 33.5 mmol/L 21.0-32 [...] CBC W/DIFF, Comp. Metabolic Panel, Qual [facility] [place] - Hematology leukocyte count, [...] 248 10^3/MM^3 10*3/mm3 142-424 Lab Report: Chlamydia/GC [facility]TIM[facility]/[id number] - Lab chlamydia DNA probe NOT DETECTED NOT DETECTED Lab Report: Chlamydia/GC [facility]/08076 - Microbiology Neisseria gonorrhoeae DNA probe NOT DETECTED NO T DETECTED Lab Report: Comp. Metabolic Panel, Lipid Panel, Thyroid Stimulating Horm ... - Chemistry protein, total urine random Negative mg/dL Negative RBC, urine, dipstick Negative Negative sodium, serum 141 mmol/L 472-718 9750/01/26 carbon dioxide, venous blood 30.0 mmol/L 21.0-32 .0 potassium, serum 4.0 mmol/L 3.5-5.2 chloride, serum 105 mmol/L 98-107 blood glucose 85 mg/dL 65-110 urea nitrogen, blood 9 mg/dL 7-18 creatinine, serum 0.66 mg/dL 0.55-1.30 alanine aminotransferase (SGPT), serum 31 U/L 12-78 aspartate aminotransferase (SGOT), serum 21 U/L 15-37 calcium, serum 8.2 mg/dL 8.5-10.1 bilirubin, serum, total 1.10 mg/dL 0.00-1.00 cholesterol, serum 178 mg/dL 998-237 6574/01/26 triglyceride, serum, fasting 149 mg/dL 30-200 HDL [...] ... - Chemistry sodium, serum 137 mmol/L 654-907 9519/05/27 carbon dioxide, venous blood 29.1 mmol/L 21.0-32 [...] 5.0-8.5 Encounters Code Encounter Date Provider Facility CPT-70868 Level 3 Est. Patient 09:11:49 CDT Efren almendarez APRN [facility] CPT-26144 Level 2 Est. Patient 19:53:27 CDT Tanner hill MD [facility] CPT-86522 Level 3 Est. Patient 09:15:34 CDT Efren Nicolas erickson [facility] CPT-20050 Level 3 Est. Patient 11:28:51 LEARNING SUPPORT ASSISTANT Efren almendarez [facility] CPT-00094 Level 4 Est. Patient 13:55:46 LEARNING SUPPORT ASSISTANT Checo Conklin MD [facility] CPT-19822 Level 4 Est. Patient 17:10:53 CDT Checo Conklin MD [facility] CPT-23226 Level 3 Est. Patient 15:56:22 CDT Checo Conklin MD [facility] CPT-13069 Level 3 Est. Patient 15:29:07 CDT Checo Conklin MD [facility] CPT-72550 Level 3 Est. Patient 14:38:41 CDT Checo Conklin MD [facility] CPT-44936 Level 3 Est. Patient 15:22:03 LEARNING SUPPORT ASSISTANT Thomas reynolds DO [facility] CPT-06104 Level 3 Est. Patient 13:34:17 LEARNING SUPPORT ASSISTANT Checo Conklin MD [facility] CPT-63631 Level 3 Est. Patient 12:29:32 CDT Dangelo arroyo MD [facility] [place]-76457 Level 3 Est. Patient 16:53:02 CDT Checo Conklin MD [facility] CPT-95950 Level 3 Est. Patient 16:37:13 CDT Checo Conklin MD [facility] CPT-18243 Level 3 Est. Patient 16:16:59 CDT Paul Hamlin MD [facility] [place]-18459 Level 3 Est. Patient 14:20:13 CDT Dangelo arroyo MD [facility] CPT-39570 Level 4 Est. Patient 11:29:33 CDT Checo Conklin MD [facility] CPT-14857 Level 3 Est. Patient 17:08:31 CDT Checo Conklin MD [facility] CPT-15014 Level 3 Est. Patient 16:50:42 LEARNING SUPPORT ASSISTANT Checo Conklin MD [facility] CPT-92295 Level 4 Est. Patient 09:26:08 LEARNING SUPPORT ASSISTANT Checo Conklin MD [facility] CPT-94041 Level 3 Est. Patient 11:37:10 CDT Checo Conklin MD [facility] CPT-26876 Level 4 Est. Patient 14:07:38 CDT Checo Conklin MD [facility] CPT-62137 Level 3 Est. Patient 09:54:41 CDT Checo Conklin MD [facility] CPT-40254 Level 3 Est. Patient 11:10:54 CDT Paul Hamlin MD [facility] CPT-42371 Level 3 Est. Patient 14:16:56 LEARNING SUPPORT ASSISTANT Checo Conklin MD [facility] CPT-03884 Level 3 Est. Patient 11:04:11 LEARNING SUPPORT ASSISTANT Checo Conklin MD [facility] CPT-72052 Level 3 Est. Patient 17:09:26 CDT Dangelo arroyo MD [facility] CPT-67664 Level 3 Est. Patient 16:54:37 CDT Checo Conklin MD [facility] Procedures Code Procedure Name Date Entry Date Standard Desc ription CPT-47839 UA w micro - LAB USE ONLY 17:06:46 CDT 2015 CPT-66849 [facility] Qual - LAB USE ONLY 17:06:46 CDT 05/06 CPT-38760 CMP - LAB USE ONLY 17:06:46 CDT CPT-65932 CBC with Diff - LAB USE ONLY 17:06:45 CDT 2 CPT-69295 Venipuncture Draw Fee 17:06:45 CDT CPT-LR Lesion Removal 19:53:27 CDT CPT-OV Office Visit 11:31:28 CDT CPT-19716 Tubersol 09:39:29 CDT CPT-J2550 Phenergan 25 mg (Promethazine) 13:59:02 LEARNING SUPPORT ASSISTANT CPT-J1885 Toradol 60 mg (Ketorolac) 13:59:02 LEARNING SUPPORT ASSISTANT 2012
--- OUTSIDE RECORDS SUMMARY | 2019-09-29 01:31 | XMS REPORT | Clinical Summary ---
Author Author Admin, Bethany Ayala [facility] Address Unknown Phone Unavailable Allergies, Adverse Reactions, [...] TABS 1.5 po qd PAROX ETINE HCL 44842282036 Active Checo Conklin MD Active FLUTICASONE PROPIONATE 50 MCG/ACT NASAL SUSP 2 sprays/ nostril qd PRN Congestion/Allergies FLUTICASONE PROPIONATE 6306319350 5 No Longer Active Checo Conklin MD Active AMOXICILLIN 500 MG ORAL CAPS 2 po BID x 10 days 09/12 AMOXICILLIN 89851248769 No Longer Active Checo Conklin MD Activ e MIRALAX ORAL POWD 8.5 to 17g po qd PRN Constipation POLYETHYLENE GLYCOL 3350 76347253117 Active Checo Conklin MD Active CLARITIN 10 MG TAB 1 tablet by mouth daily as needed for allergi es LORATADINE 48332050208 No Longer Active Checo Conklin MD Active BACTRIM DS 800-160 MG TAB 1 tab by mouth twice daily 2 TRIMETHOPRIM-SULFAMETHOXAZOLE 32422068565 No Longer Active Tanner Carrillo MD Active DIFLUCAN 150 MG TAB 1 tablet by mouth qod FLUCO NAZOLE 86486715485 No Longer Active Jillina Frazell [employer]ER Active AZITHROMYCIN 250 MG TABS 2 po qd x 1 day, then 1 po qd x 4 days AZITHROMYCIN 89896558669 No Longer Active [employer] Medel APRN Active FLAGYL 500 MG TAB 1 tablet by mouth bid METRONI DAZOLE 67990213829 No Longer Active Checo Conklin MD Active FOCALIN XR 10 MG ORAL [id number] 1 po q a.m. DEX METHYLPHENIDATE HCL 61509465899 Active Checo Conklin MD Active MAGNESIUM CITRATE 1.745 GM/30ML ORAL SOLN 150ml po BID PRN C onstipation MAGNESIUM CITRATE 99091424727 No Longer Active Checo Conklin MD Active BACTROBAN 2 % CREAM Apply to affected area BID for up to 10 days MUPIROCIN CALCIUM 29587642914 No Longer Active Checo Conklin MD Active HYDROCODONE-ACETAMINOPHEN 5-325 MG TABS 1 tab by mouth every 6 hours as needed HYDROCODONE-ACETAMINOPHEN 18678915962 No Longer Activ e Checo Conklin MD Active IBUPROFEN 800 MG TABS 1 tab every 8 hours with food 20 31/03/21 IBUPROFEN 03454039309 No Longer Active Checo Conklin MD Activ e DIFLUCAN 150 MG TAB 1 tablet by mouth if needed, hold until symptoms start FLUCONAZOLE 70118919575 No Longer Active Checo Ortiz MD Active BACTRIM DS 800-160 MG TAB 1 tab by mouth twice daily 2 TRIMETHOPRIM-SULFAMETHOXAZOLE 20727182278 No Longer Active Corry leong LPN Active HYDROCODONE-ACETAMINOPHEN 5-325 MG TABS 0.5 to 1 tab b y mouth every 6 hours as needed HYDROCODONE-ACETAMINOPHEN 17284299573 No Longer Active Checo Conklin MD Active ONDANSETRON [address] one tablet on tongue and allow to dissolve every 6 hours as needed for vomitting ONDANSETRO N 94341088094 No Longer Active Checo Conklin MD Active COMPRO 25 MG RECTAL SUPP insert or apply one supposit ory rectally as directed every 12 hours as needed for nausea PROCHLORPERA ZINE 24531112452 No Longer Active Checo Conklin MD Active SUMATRIPTAN SUCCINATE 100 MG ORAL TABS Take one PRN for migrane SUMATRIPTAN SUCCINATE 30217449426 No Longer Active Checo Conklin MD Active TRAVEL SICKNESS 25 MG ORAL CHEW chew and swallow one t ablet every 6 hours as needed MECLIZINE HCL 42879609778 No Longer Active Joe Conklin MD Active BUPROPION HCL ER (SR) 100 MG ORAL [id number] take one t ablet by mouth one time daily for one week then take 1 two times daily BUPROPION HCL 03626300569 No Longer Active Checo Conklin MD Activ e TERBINAFINE HCL 250 MG ORAL TABS take one table PO one time abran y TERBINAFINE HCL 63163808926 No Longer Active Checo Conklin MD Active METOCLOPRAMIDE HCL 10 MG ORAL TABS take one PO tid PRN nausea 20 29/12/14 METOCLOPRAMIDE HCL 59174488666 No Longer Active Checo Conklin MD Active DICLOFENAC SODIUM 75 MG TBEC 1 tablet by mouth twice daily P RN Knee pain DICLOFENAC SODIUM 06260845400 No Longer Active Checo Conklin MD Active LAMISIL 250 MG TAB 1 po qd TERBINAFINE HCL 548 90659844 No Longer Active Checo Conklin MD Active REGLAN 10 MG TAB 1 po TID PRN Nausea METOCLOPRA MIDE HCL 72704645350 No Longer Active Checo Conklin MD Active CELEXA 20 MG TABS 1 tablet by mouth daily CITALOPRAM HYDROBROMIDE 36523682700 No Longer Active Checo Conklin MD Activ e AZITHROMYCIN 250 MG TABS 2 po qd x 1 day, then 1 po qd x 4 days AZITHROMYCIN 35972349199 No Longer Active Checo Conklin MD Active HYDROCODONE-ACETAMINOPHEN 5-325 MG TABS 1 po q 6hr PRN Pain 2013 HYDROCODONE-ACETAMINOPHEN 32393539228 No Longer Active Lenora Conklin MD Active PHENAZOPYRIDINE HCL 200 MG TABS take 1 tab po TID for bladder pa in PHENAZOPYRIDINE HCL 54081028284 No Longer Active Checo Joshua Active CIPRO 500 MG TAB 1 tablet by mouth twice daily CIPROFLOXACIN HCL 65025051988 No Longer Active Dangelo Rangel MD Active HYDROCODONE-ACETAMINOPHEN 5-325 MG TABS 1/2 to 1 po q 4 hour s prn cough HYDROCODONE-ACETAMINOPHEN 78870367844 No Longer Activ e Dangelo Rangel MD Active BACTRIM DS 800-160 MG TABS 1 po BID x 7 days 0 SULFAMETHOXAZOLE-TRIMETHOPRIM 29850931265 No Longer Active Checo Conklin MD Active PREDNISONE 20 MG TAB 2 tabs daily for 3 days, 1 t ab daily for 3 days, 1/2 tab daily for 2 days PREDNISONE 53770305872 No Longer Active Checo Conklin MD Active TRIAMCINOLONE ACETONIDE 0.1 % OINT Apply to affected a reas TID for up to 2 weeks TRIAMCINOLONE ACETONIDE 06681671133 No Longer A ctive Checo Conklin MD Active CEFDINIR 300 MG CAPS by mouth twice a day CEFDI JAZZY 00913390463 No Longer Active Dangelo Rangel MD Active BUPROPION HCL (SMOKING DETER) 150 MG [id number] 1 a day for 1 week then 1 twice a day BUPROPION HCL (SMOKING DETER) 57226348965 No Lo nger Active Checo Conklin MD Active SIMVASTATIN 20 MG TABS 1 po qd SIMVASTATIN 3287197511 5 Active Checo Conklin MD Active CHANTIX STARTING MONTH KARTHIK 0.5 MG X 11 & 1 MG X 42 TAB S 0.5mg daily for 3 days, then 0.5mg BID for 4 days, then 1mg BID VARENICLINE TARTRATE 38049341249 No Longer Active Checo Conklin MD Activ e XANAX 0.5 MG TABS 1 po BID PRN anxiety ALPRAZOLAM 03263819894 Active Checo Conklin MD Active CONCERTA 18 MG CR-TABS 1 po q a.m. METHYLPHENID ATE HCL 13585576891 No Longer Active Checo Conklin MD Active AMBIEN 5 MG TAB 1 po qHS PRN Insomnia ZOLPIDEM TARTRATE 86845569540 Active Checo Conklin MD Active TRAZODONE HCL 100 MG TAB 0.5 to 1 po qHS PRN Insomnia TRAZODONE HCL 61486303795 No Longer Active Checo Conklin MD Acti ve FIORICET 325-50-40 MG TAB 1 tablet by mouth four times daily as needed [id number] 50898787133 No Longer Active Checo Conklin MD Active PHENERGAN CREAM* 25mg applied to wrist q6hr PRN Nausea PHENERGAN CREAM* No Longer Active Checo Conklin MD A ctive FLONASE 50 MCG/ACT SUSP 1 spray each nostril am and hs FLUTICASONE PROPIONATE 12549631799 No Longer Active Checo Simms e ANTIPYRINE-BENZOCAINE 5.4-1.4 % SOLN 1-2 drops in affected ear BENZOCAINE-ANTIPYRINE 79719678049 No Longer Active Checo Conklin MD Active CEFDINIR 300 MG CAPS 1 po bid CEFDINIR 73288768 120 No Longer Active Checo Conklin MD Active PREDNISONE 20 MG TAB 2 tabs daily for 3 days, 1 t ab daily for 3 days, 1/2 tab daily for 2 days PREDNISONE 07692126048 No Longer Active Aracelis Conklin MD Active AZITHROMYCIN 250 MG TABS 2 po qd x 1 day, then 1 po qd x 4 days AZITHROMYCIN 75015262183 No Longer Active Checo Conklin MD Active PREDNISONE 20 MG TAB 2 tabs daily for 3 days, 1 t ab daily for 3 days, 1/2 tab daily for 2 days PREDNISONE 03036851158 No Longer Active Checo Conklin MD Active ZITHROMAX Z-KARTHIK 250 MG TABS 2 today, then 1 daily for 4 days 201 09/18/28 AZITHROMYCIN 47357444305 No Longer Active Paul Hamlin MD Active FOCALIN XR 10 MG [id number] 1 po q a.m. D EXMETHYLPHENIDATE HCL 80264341485 No Longer Active Paul Hamlin MD Activ e PERCOCET 10-325 MG TABS 1 tablet every 6 hours as needed for pain OXYCODONE-ACETAMINOPHEN 24843461747 No Longer Active Paul Hamlin MD Active LORTAB 5 5-500 MG TABS 1/2 to 1 tablet by mouth flaquito ry 4 hours as needed for pain HYDROCODONE-ACETAMINOPHEN 31568850644 No Longer Active Checo Conklin MD Active FOCALIN XR 15 MG [id number] 1 po q a.m. D EXMETHYLPHENIDATE HCL 72897262778 No Longer Active Checo Conklin MD Activ e ZOFRAN ODT 4 MG TBDP 1 po q6hr PRN Nausea ONDAN SETRON 10142909734 No Longer Active Checo Conklin MD Active PERCOCET 5-325 MG TABS 1 tablet by mouth every 6 hours as needed OXYCODONE-ACETAMINOPHEN 82724752426 No Longer Active Checo Conklin MD Active PYRIDIUM 200 MG TABS take 1 tab po TID prn urinary pain. 0 PHENAZOPYRIDINE HCL 05321397826 No Longer Active Checo Conklin MD Active FLUCONAZOLE 150 MG TABS take 1 tab po qday once 04/06 FLUCONAZOLE 55148454125 No Longer Active Dangelo Rangel MD Acti ve CIPRO 500 MG TAB 1 tablet by mouth twice daily CIPROFLOXACIN HCL 43913947590 No Longer Active Dangelo Rangel MD Active PYRIDIUM 200 MG TABS take 1 tab po TID prn urinary pain. 0 PYRIDIUM 200 MG TABS 6974448 PHENAZOPYRIDINE HCL Inactive PERCOCET 5-325 MG TABS 1 tablet by mouth every 6 hours as needed PERCOCET 5-325 MG TABS 4459299 OXYCODONE-ACETAMINOPHEN I nactive ZOFRAN ODT 4 MG TBDP 1 po q6hr PRN Nausea ZOFRAN ODT 4 MG TBDP 358292 ONDANSETRON Inactive FOCALIN XR 15 MG [id number] 1 po q a.m. F OCALIN XR 15 MG [id number] DEXMETHYLPHENIDATE HCL Inactive LORTAB 5 5-500 MG TABS 1/2 to 1 tablet by mouth flaquito ry 4 hours as needed for pain LORTAB 5 5-500 MG TABS HYDROCODONE-A CETAMINOPHEN Inactive PERCOCET 10-325 MG TABS 1 tablet every 6 hours as needed for pain PERCOCET 10-325 MG TABS 0722107 OXYCODONE-ACETAMINOPHEN Inactive FOCALIN XR 10 MG [id number] 1 po q a.m. F OCALIN XR 10 MG [id number] DEXMETHYLPHENIDATE HCL Inactive CEFDINIR 300 MG CAPS 1 po bid CEFDINIR 300 MG CAPS 20 0346 CEFDINIR Inactive ANTIPYRINE-BENZOCAINE 5.4-1.4 % SOLN 1-2 drops in affected ear ANTIPYRINE-BENZOCAINE 5.4-1.4 % SOLN BENZOCAINE-ANTIPYRINE I nactive FLONASE 50 MCG/ACT SUSP 1 spray each nostril am and hs FLONASE 50 MCG/ACT SUSP 4733933 FLUTICASONE PROPIONATE Inactive PHENERGAN CREAM* 25mg applied to wrist q6hr PRN Nausea PHENERGAN CREAM* Inactive FIORICET 325-50-40 MG TAB 1 tablet by mouth four times daily as needed FIORICET 325-50-40 MG TAB ACETAMINOPHEN-C AFF-BUTALBITAL Inactive TRAZODONE HCL 100 MG TAB 0.5 to 1 po qHS PRN Insomnia TRAZODONE HCL 100 MG TAB 128678 TRAZODONE HCL Inactive CONCERTA 18 MG CR-TABS [...] s prn cough HYDROCODONE-ACETAMINOPHEN 5-325 MG TABS 861718 HYDROCODONE-ACETAMINOPHEN Inactive PHENAZOPYRIDINE HCL 200 MG TABS take 1 tab po TID for bladder pa in PHENAZOPYRIDINE HCL 200 MG TABS 7644158 PHENAZOPYRIDINE HCL Inactive HYDROCODONE-ACETAMINOPHEN 5-325 MG TABS 1 po q 6hr PRN Pain 2013 HYDROCODONE-ACETAMINOPHEN 5-325 MG TABS 025506 HYDROCODONE-ACETAMINOPHEN Inactive CELEXA 20 MG TABS 1 tablet by mouth daily CELEXA 20 MG TABS 829032 CITALOPRAM HYDROBROMIDE Inactive REGLAN 10 MG TAB 1 po TID PRN Nausea REGLAN 10 MG TAB 098048 METOCLOPRAMIDE HCL Inactive LAMISIL 250 MG TAB 1 po qd LAMISIL 250 MG TAB 150377 TERBINAFINE HCL Inactive DICLOFENAC SODIUM 75 MG TBEC 1 tablet by mouth twice daily P RN Knee pain DICLOFENAC SODIUM 75 MG TBEC 328009 DICLOFENAC S ODIUM Inactive METOCLOPRAMIDE HCL 10 MG ORAL TABS take one PO tid PRN nausea 20 29/12/14 METOCLOPRAMIDE HCL 10 MG ORAL TABS 799954 METOCLOPRAMID E HCL Inactive TERBINAFINE HCL 250 MG ORAL TABS take one table PO one time abran y TERBINAFINE HCL 250 MG ORAL TABS 000281 TERBINAFINE HCL Inactive BUPROPION HCL ER (SR) 100 MG ORAL [id number] take one t ablet by mouth one time daily for one week then take 1 two times daily BUPROPION HCL ER (SR) 100 MG ORAL [id number] BUPROPION HCL Inacti ve TRAVEL SICKNESS 25 MG ORAL CHEW chew and swallow one t ablet every 6 hours as needed TRAVEL SICKNESS 25 MG ORAL CHEW 669499 MECLIZINE HCL Inactive SUMATRIPTAN SUCCINATE 100 MG ORAL TABS Take one PRN for migrane SUMATRIPTAN SUCCINATE 100 MG ORAL TABS 261688 SUMATRIPT AN SUCCINATE Inactive COMPRO 25 MG RECTAL SUPP insert or apply one supposit ory rectally as directed every 12 hours as needed for nausea COMP RO 25 MG RECTAL SUPP 865881 PROCHLORPERAZINE Inactive ONDANSETRON [address] one tablet on tongue and allow to dissolve every 6 hours as needed for vomitting ON DANSETRON 8 MG ORAL TBDP 658281 ONDANSETRON Inactive HYDROCODONE-ACETAMINOPHEN 5-325 MG TABS 0.5 to 1 tab b y mouth every 6 hours as needed HYDROCODONE-ACETAMINOPHEN 5-325 MG TABS 8 39725 HYDROCODONE-ACETAMINOPHEN Inactive BACTRIM DS 800-160 MG TAB 1 tab by mouth twice daily 2 BACTRIM DS 800-160 MG TAB 669634 TRIMETHOPRIM-SULFAMETHOXAZOLE Inac tive DIFLUCAN 150 MG TAB 1 tablet by mouth if needed, hold until symptoms start DIFLUCAN 150 MG TAB 19760325 FLUCONAZOLE Inactive IBUPROFEN 800 MG TABS 1 tab every 8 hours with food 31/03/21 IBUPROFEN 800 MG TABS 689912 IBUPROFEN Inactive HYDROCODONE-ACETAMINOPHEN 5-325 MG TABS 1 tab by mouth every 6 hours as needed HYDROCODONE-ACETAMINOPHEN 5-325 MG TABS 633564 HYDROCODONE-ACETAMINOPHEN Inactive BACTROBAN 2 % CREAM Apply to affected area BID for up to 10 days BACTROBAN 2 % CREAM 143652 MUPIROCIN CALCIUM Inactive MAGNESIUM CITRATE 1.745 GM/30ML ORAL SOLN 150ml po BID PRN C onstipation MAGNESIUM CITRATE 1.745 GM/30ML ORAL SOLN 063488 0 MAGNESIUM CITRATE Inactive DIFLUCAN 150 MG TAB 1 tablet by mouth qod DIFLUCAN 150 MG TAB 850390 FLUCONAZOLE Inactive BACTRIM DS 800-160 MG TAB 1 tab by mouth twice daily 2 BACTRIM DS 800-160 MG TAB 832249 TRIMETHOPRIM-SULFAMETHOXAZOLE Inac tive CLARITIN 10 MG TAB 1 tablet by mouth daily as needed for allergi es CLARITIN 10 MG TAB 197628 LORATADINE Inactive FLUTICASONE PROPIONATE 50 MCG/ACT NASAL SUSP 2 sprays/ nostril qd PRN Congestion/Allergies FLUTICASONE PROPION ATE 50 MCG/ACT NASAL SUSP 2774743 FLUTICASONE PROPIONATE Inactive CIPRO 500 MG TAB 1 tablet by mouth twice daily CIPRO 500 MG TAB 057945 CIPROFLOXACIN HCL Inactive FLUCONAZOLE 150 MG TABS take 1 tab po qday once 04/06 FLUCONAZOLE 150 MG TABS 345239 FLUCONAZOLE Inactive ZITHROMAX Z-KARTHIK 250 MG TABS 2 today, then 1 daily for 4 days 201 09/18/28 ZITHROMAX Z-KARTHIK 250 MG TABS 2221249 AZITHROMYCIN Inac tive PREDNISONE 20 MG TAB 2 tabs daily for 3 days, 1 t ab daily for 3 days, 1/2 tab daily for 2 days PREDNISONE 20 MG TAB 276325 PREDNISON E Inactive AZITHROMYCIN 250 MG TABS 2 po qd x 1 day, then 1 po qd x 4 days AZITHROMYCIN 250 MG TABS 8603220 AZITHROMYCIN Inactiv e PREDNISONE 20 MG TAB 2 tabs daily for 3 days, 1 t ab daily for 3 days, 1/2 tab daily for 2 days PREDNISONE 20 MG TAB 647851 PREDNISON E Inactive CEFDINIR 300 MG CAPS by mouth twice a day CEFDINIR 300 MG CAPS 334673 CEFDINIR Inactive TRIAMCINOLONE ACETONIDE 0.1 % OINT Apply to affected a reas TID for up to 2 weeks TRIAMCINOLONE ACETONIDE 0.1 % OINT 962181 6 TRIAMCINOLONE ACETONIDE Inactive PREDNISONE 20 MG TAB 2 tabs daily for 3 days, 1 t ab daily for 3 days, 1/2 tab daily for 2 days PREDNISONE 20 MG TAB 818750 PREDNISON E Inactive BACTRIM DS 800-160 MG TABS 1 po BID x 7 days 0 BACTRIM DS 800-160 MG TABS 171986 SULFAMETHOXAZOLE-TRIMETHOPRIM Inactive CIPRO 500 MG TAB 1 tablet by mouth twice daily CIPRO 500 MG TAB 621655 CIPROFLOXACIN HCL Inactive AZITHROMYCIN 250 MG TABS 2 po qd x 1 day, then 1 po qd x 4 days AZITHROMYCIN 250 MG TABS 2146855 AZITHROMYCIN Inactiv e FLAGYL 500 MG TAB 1 tablet by mouth bid FLAGYL 500 MG TAB 920756 METRONIDAZOLE Inactive AZITHROMYCIN 250 MG TABS 2 po qd x 1 day, then 1 po qd x 4 days AZITHROMYCIN 250 MG TABS 6952626 AZITHROMYCIN Inactiv e AMOXICILLIN 500 MG ORAL CAPS 2 po BID x 10 days 09/12 AMOXICILLIN 500 MG ORAL CAPS 686651 AMOXICILLIN Inactive Immunizations Vaccine Administration Date Value [...] - 3141-9 129.6 [lb_av] Weigh t Measured Diagnostic Results Date Name Value Unit Range Description Lab Report: CBC W/DIFF, Comp. Metabolic Panel, Qual [facility] - Chemistry sodium, serum 139 mmol/L 447-396 3856/10/21 carbon dioxide, venous blood 33.5 mmol/L 21.0-32 [...] Report: CBC W/DIFF, Comp. Metabolic Panel, Qual [facility] - Hematology erythrocyte (RBC) count 4.53 10^6/MM^3 10*6/mm3 4.04-5.4 8 lymphocytes as percent of blood leukocytes 27.5 % 20.5-51.1 monocytes as percent of blood leukocytes 4.1 % 1.7-9.3 neutrophils as percent of blood leukocytes 65.5 % 42.2-75.2 leukocyte count, blood 7.9 10^3/MM^3 10*3/mm3 4.6-10.2 hemoglobin, blood 14.8 g/dL 12.0-16.0 hematocrit, blood [...] PANEL - Chemistry cholesterol, serum 192 mg/dL 326-036 3639/02/20 HDL cholesterol, serum 31 mg/dL > OR = 46 triglyceride, serum, fasting 138 mg/dL <150 LDL cholesterol, serum 133 MG/DL (CALC) mg/dL <130 cholesterol/HDL ratio, serum 6.2 (calc) < OR = 5.0 Lab Report: CBC-QUEST, COMPREHENSIVE MET ABOLIC PANEL, LIPID PANEL - Hematology mean corpuscular hemoglobin, RBC 31.4 pg 27. 0-33.0 leukocyte count, blood 8.7 THOUSAND/UL 10*3/mm3 3.8-10.8 erythrocyte (RBC) count 4.37 MILLION/UL 10*6/mm3 3.80-5. 10 hemoglobin, blood 13.7 g/dL 11.7-15.5 hematocrit, blood 42.2 % 35.0-45.0 mean corpuscular volume, RBC 96.5 fL 80.0-10 0.0 mean corpuscular hemoglobin concentration, RBC 32.6 G/DL % 32.0-36.0 red blood cell distribution width 13.5 % 11 .0-15.0 platelet count 218 THOUSAND/UL 10*3/mm3 010-642 0028/02/20 mean platelet volume 9.7 fL 7.5-12.5 Lab Report: Chlamydia/GC APTIMA/12661 - Lab chlamydia DNA probe NOT DETECTED NOT DETECTED Lab Report: Chlamydia/GC APTIMA/62244 - Microbiology Neisseria gonorrhoeae DNA probe NOT [...] >=1.030 1.000-1.030 pH, urine, semiquantitative 5.5 5.0-8.5 glucose, urine, semiquantitative Negative Neg ative urine color Yellow Colorless;Lightyellow;St raw;Yellow ketones, urine, by test strip Negative Negati ve bilirubin, urine Negative Negative Encounters Code Encounter Date Provider Facility CPT-31488 Level 3 Est. Patient 11:29:55 CDT Checo Conklin MD [facility] CPT-53960 Level 4 Est. Patient 11:08:12 PROGRAM DEVELOPER Checo Conklin MD [facility] CPT-29650 Level 4 Est. Patient 16:06:48 PROGRAM DEVELOPER Checo Conklin MD [facility] CPT-12734 Level 3 Est. Patient 09:11:49 CDT Efren almendarez [facility] CPT-53345 Level 2 Est. Patient 19:53:27 CDT Tanner hill MD [facility] CPT-69842 Level 3 Est. Patient 09:15:34 CDT Efren almendarez [facility] CPT-21218 Level 3 Est. Patient 11:28:51 PROGRAM DEVELOPER Efren almendarez APRN [facility] CPT-89994 Level 4 Est. Patient 13:55:46 PROGRAM DEVELOPER Checo Conklin MD [facility] CPT-77581 Level 4 Est. Patient 17:10:53 CDT Checo Conklin MD [facility] CPT-70220 Level 3 Est. Patient 15:56:22 CDT Checo Conklin MD [facility] CPT-70296 Level 3 Est. Patient 15:29:07 CDT Checo Conklin MD [facility] CPT-07906 Level 3 Est. Patient 14:38:41 CDT Checo Conklin MD [facility] CPT-47322 Level 3 Est. Patient 15:22:03 PROGRAM DEVELOPER Thomas reynolds DO [facility] CPT-81300 Level 3 Est. Patient 13:34:17 PROGRAM DEVELOPER Checo Conklin MD [facility] CPT-84337 Level 3 Est. Patient 12:29:32 CDT Dangelo arroyo MD [facility] CPT-64674 Level 3 Est. Patient 16:53:02 CDT Checo Conklin MD [facility] CPT-52566 Level 3 Est. Patient 16:37:13 CDT Checo Conklin MD [facility] CPT-53324 Level 3 Est. Patient 16:16:59 CDT Paul Hamlin MD [facility] CPT-22673 Level 3 Est. Patient 14:20:13 CDT Dangelo arroyo MD [facility] CPT-75587 Level 4 Est. Patient 11:29:33 CDT Checo Conklin MD [facility] CPT-49817 Level 3 Est. Patient 17:08:31 CDT Checo Conklin MD [facility] CPT-88587 Level 3 Est. Patient 16:50:42 PROGRAM DEVELOPER Checo Conklin MD [facility] CPT-85824 Level 4 Est. Patient 09:26:08 PROGRAM DEVELOPER Checo Conklin MD [facility] CPT-88750 Level 3 Est. Patient 11:37:10 CDT Checo Conklin MD [facility] CPT-28073 Level 4 Est. Patient 14:07:38 CDT Checo Conklin MD [facility] CPT-81705 Level 3 Est. Patient 09:54:41 CDT Checo Conklin MD [facility] CPT-45622 Level 3 Est. Patient 11:10:54 CDT Paul Hamlin MD [facility] CPT-37882 Level 3 Est. Patient 14:16:56 PROGRAM DEVELOPER Checo Conklin MD [facility] CPT-52547 Level 3 Est. Patient 11:04:11 PROGRAM DEVELOPER Checo Conklin MD [facility] CPT-58888 Level 3 Est. Patient 17:09:26 CDT Dangelo arroyo MD [facility] CPT-34904 Level 3 Est. Patient 16:54:37 CDT Checo Conklin MD [facility] Procedures Code Procedure Name Date Entry Date Standard Desc ription CPT-22096 UA w micro - LAB USE ONLY 17:06:46 CDT 2015 CPT-65921 [facility] Qual - LAB USE ONLY 17:06:46 CDT 05/06 CPT-16294 CMP - LAB USE ONLY 17:06:46 CDT CPT-35168 CBC with Diff - LAB USE ONLY 17:06:45 CDT 2 CPT-29206 Venipuncture Draw Fee 17:06:45 CDT CPT-LR Lesion Removal 19:53:27 CDT CPT-OV Office Visit 11:31:28 CDT CPT-85739 Tubersol 09:39:29 CDT CPT-J2550 Phenergan 25 mg (Promethazine) 13:59:02 PROGRAM DEVELOPER CPT-J1885 Toradol 60 mg (Ketorolac) 13:59:02 PROGRAM DEVELOPER 2012
--- OUTSIDE RECORDS SUMMARY | 2019-09-29 01:31 | XMS REPORT | Clinical Summary ---
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 Checo Conklin MD Abdominal pain, generalized ICD-789.07 Inactive Checo Conklin MD Urinary frequency ICD-788.41 Inactive Checo Conklin MD Sinusitis, acute ICD-461.9 Inactive Checo Ortiz MD Medication List Medication Instructions Start Date Stop Date Generic Name NDC Status Provider Patient Instruction PAROXETINE HCL 20 MG ORAL TABS 1.5 po qd PAROX ETINE HCL 58810294844 Active Checo Conklin MD Active FLUTICASONE PROPIONATE 50 MCG/ACT NASAL SUSP 2 sprays/ nostril qd PRN Congestion/Allergies FLUTICASONE PROPIONATE 5381963127 5 No Longer Active Checo Conklin MD Active AMOXICILLIN 500 MG ORAL CAPS 2 po BID x 10 days 09/12 AMOXICILLIN 52927246989 No Longer Active Checo Conklin MD Activ e MIRALAX ORAL POWD 8.5 to 17g po qd PRN Constipation POLYETHYLENE GLYCOL 3350 56442704125 Active Checo Conklin MD Active CLARITIN 10 MG TAB 1 tablet by mouth daily as needed for allergi es LORATADINE 82869479040 No Longer Active Checo Conklin MD Active BACTRIM DS 800-160 MG TAB 1 tab by mouth twice daily 2 TRIMETHOPRIM-SULFAMETHOXAZOLE 07928604504 No Longer Active Tanner Carrillo MD Active DIFLUCAN 150 MG TAB 1 tablet by mouth qod FLUCO NAZOLE 27214034212 No Longer Active Jillina Frazell SENIOR MEDICAL DIRECTOR Active AZITHROMYCIN 250 MG TABS 2 po qd x 1 day, then 1 po qd x 4 days AZITHROMYCIN 02492924879 No Longer Active Americomarnie Medel APRN Active FLAGYL 500 MG TAB 1 tablet by mouth bid METRONI DAZOLE 66857844598 No Longer Active Checo Conklin MD Active FOCALIN XR 10 MG ORAL [id number] 1 po q a.m. DEX METHYLPHENIDATE HCL 49431314580 Active Checo Conklin MD Active MAGNESIUM CITRATE 1.745 GM/30ML ORAL SOLN 150ml po BID PRN C onstipation MAGNESIUM CITRATE 47473531867 No Longer Active Checo Conklin MD Active BACTROBAN 2 % CREAM Apply to affected area BID for up to 10 days MUPIROCIN CALCIUM 01471071976 No Longer Active Checo Conklin MD Active HYDROCODONE-ACETAMINOPHEN 5-325 MG TABS 1 tab by mouth every 6 hours as needed HYDROCODONE-ACETAMINOPHEN 33720848547 No Longer Activ e Checo Conklin MD Active IBUPROFEN 800 MG TABS 1 tab every 8 hours with food 20 31/03/21 IBUPROFEN 29925923411 No Longer Active Checo Conklin MD Activ e DIFLUCAN 150 MG TAB 1 tablet by mouth if needed, hold until symptoms start FLUCONAZOLE 59708505963 No Longer Active Checo Ortiz MD Active BACTRIM DS 800-160 MG TAB 1 tab by mouth twice daily 2 TRIMETHOPRIM-SULFAMETHOXAZOLE 12087658854 No Longer Active Corry leong LPN Active HYDROCODONE-ACETAMINOPHEN 5-325 MG TABS 0.5 to 1 tab b y mouth every 6 hours as needed HYDROCODONE-ACETAMINOPHEN 76228958267 No Longer Active Checo Conklin MD Active ONDANSETRON [address] one tablet on tongue and allow to dissolve every 6 hours as needed for vomitting ONDANSETRO N 20960498085 No Longer Active Checo Conklin MD Active COMPRO 25 MG RECTAL SUPP insert or apply one supposit ory rectally as directed every 12 hours as needed for nausea PROCHLORPERA ZINE 82099000915 No Longer Active Checo Conklin MD Active SUMATRIPTAN SUCCINATE 100 MG ORAL TABS Take one PRN for migrane SUMATRIPTAN SUCCINATE 60966509250 No Longer Active Checo Conklin MD Active TRAVEL SICKNESS 25 MG ORAL CHEW chew and swallow one t ablet every 6 hours as needed MECLIZINE HCL 59349874720 No Longer Active Joe Conklin MD Active BUPROPION HCL ER (SR) 100 MG ORAL [id number] take one t ablet by mouth one time daily for one week then take 1 two times daily BUPROPION HCL 47101590012 No Longer Active Checo Conklin MD Activ e TERBINAFINE HCL 250 MG ORAL TABS take one table PO one time abran y TERBINAFINE HCL 10052560452 No Longer Active Checo Conklin MD Active METOCLOPRAMIDE HCL 10 MG ORAL TABS take one PO tid PRN nausea 20 29/12/14 METOCLOPRAMIDE HCL 77999470533 No Longer Active Checo Conklin MD Active DICLOFENAC SODIUM 75 MG TBEC 1 tablet by mouth twice daily P RN Knee pain DICLOFENAC SODIUM 97632947296 No Longer Active Checo Conklin MD Active LAMISIL 250 MG TAB 1 po qd TERBINAFINE HCL 548 06547490 No Longer Active Checo Conklin MD Active REGLAN 10 MG TAB 1 po TID PRN Nausea METOCLOPRA MIDE HCL 92922717419 No Longer Active Checo Conklin MD Active CELEXA 20 MG TABS 1 tablet by mouth daily CITALOPRAM HYDROBROMIDE 32138245111 No Longer Active Checo Conklin MD Activ e AZITHROMYCIN 250 MG TABS 2 po qd x 1 day, then 1 po qd x 4 days AZITHROMYCIN 19006396708 No Longer Active Checo Conklin MD Active HYDROCODONE-ACETAMINOPHEN 5-325 MG TABS 1 po q 6hr PRN Pain 2013 HYDROCODONE-ACETAMINOPHEN 81545816411 No Longer Active Lenora Conklin MD Active PHENAZOPYRIDINE HCL 200 MG TABS take 1 tab po TID for bladder pa in PHENAZOPYRIDINE HCL 02510593430 No Longer Active Checo Joshua Active CIPRO 500 MG TAB 1 tablet by mouth twice daily CIPROFLOXACIN HCL 32964089369 No Longer Active Dangelo Rangel MD Active HYDROCODONE-ACETAMINOPHEN 5-325 MG TABS 1/2 to 1 po q 4 hour s prn cough HYDROCODONE-ACETAMINOPHEN 32573154508 No Longer Activ e Dangelo Rangel MD Active BACTRIM DS 800-160 MG TABS 1 po BID x 7 days 0 SULFAMETHOXAZOLE-TRIMETHOPRIM 85220837687 No Longer Active Checo Conklin MD Active PREDNISONE 20 MG TAB 2 tabs daily for 3 days, 1 t ab daily for 3 days, 1/2 tab daily for 2 days PREDNISONE 37907693910 No Longer Active Checo Conklin MD Active TRIAMCINOLONE ACETONIDE 0.1 % OINT Apply to affected a reas TID for up to 2 weeks TRIAMCINOLONE ACETONIDE 87980813766 No Longer A ctive Checo Conklin MD Active CEFDINIR 300 MG CAPS by mouth twice a day CEFDI JAZZY 09769985334 No Longer Active Dangelo Rangel MD Active BUPROPION HCL (SMOKING DETER) 150 MG [id number] 1 a day for 1 week then 1 twice a day BUPROPION HCL (SMOKING DETER) 16705317033 No Lo nger Active Checo Conklin MD Active SIMVASTATIN 20 MG TABS 1 po qd SIMVASTATIN 4976695470 5 Active Checo Conklin MD Active CHANTIX STARTING MONTH KARTHIK 0.5 MG X 11 & 1 MG X 42 TAB S 0.5mg daily for 3 days, then 0.5mg BID for 4 days, then 1mg BID VARENICLINE TARTRATE 82816073606 No Longer Active Checo Conklin MD Activ e XANAX 0.5 MG TABS 1 po BID PRN anxiety ALPRAZOLAM 64453488665 Active Checo Conklin MD Active CONCERTA 18 MG CR-TABS 1 po q a.m. METHYLPHENID ATE HCL 28856157897 No Longer Active Checo Conklin MD Active AMBIEN 5 MG TAB 1 po qHS PRN Insomnia ZOLPIDEM TARTRATE 36664586814 Active Checo Conklin MD Active TRAZODONE HCL 100 MG TAB 0.5 to 1 po qHS PRN Insomnia TRAZODONE HCL 62280743033 No Longer Active Checo Conklin MD Acti ve FIORICET 325-50-40 MG TAB 1 tablet by mouth four times daily as needed [id number] 67576990913 No Longer Active Checo Conklin MD Active PHENERGAN CREAM* 25mg applied to wrist q6hr PRN Nausea PHENERGAN CREAM* No Longer Active Checo Conklin MD A ctive FLONASE 50 MCG/ACT SUSP 1 spray each nostril am and hs FLUTICASONE PROPIONATE 53255635114 No Longer Active Checo Simms e ANTIPYRINE-BENZOCAINE 5.4-1.4 % SOLN 1-2 drops in affected ear BENZOCAINE-ANTIPYRINE 43948619298 No Longer Active Checo Conklin MD Active CEFDINIR 300 MG CAPS 1 po bid CEFDINIR 56964422 120 No Longer Active Checo Conklin MD Active PREDNISONE 20 MG TAB 2 tabs daily for 3 days, 1 t ab daily for 3 days, 1/2 tab daily for 2 days PREDNISONE 44422016882 No Longer Active Aracelis Conklin MD Active AZITHROMYCIN 250 MG TABS 2 po qd x 1 day, then 1 po qd x 4 days AZITHROMYCIN 02031414308 No Longer Active Checo Conklin MD Active PREDNISONE 20 MG TAB 2 tabs daily for 3 days, 1 t ab daily for 3 days, 1/2 tab daily for 2 days PREDNISONE 14794967484 No Longer Active Checo Conklin MD Active ZITHROMAX Z-KARTHIK 250 MG TABS 2 today, then 1 daily for 4 days 201 09/18/28 AZITHROMYCIN 35734376953 No Longer Active Paul Hamlin MD Active FOCALIN XR 10 MG [id number] 1 po q a.m. D EXMETHYLPHENIDATE HCL 12202662141 No Longer Active Paul Hamlin MD Activ e PERCOCET 10-325 MG TABS 1 tablet every 6 hours as needed for pain OXYCODONE-ACETAMINOPHEN 83770002881 No Longer Active Paul Hamlin MD Active LORTAB 5 5-500 MG TABS 1/2 to 1 tablet by mouth flaquito ry 4 hours as needed for pain HYDROCODONE-ACETAMINOPHEN 99500667519 No Longer Active Checo Conklin MD Active FOCALIN XR 15 MG [id number] 1 po q a.m. D EXMETHYLPHENIDATE HCL 26063253123 No Longer Active Checo Conklin MD Activ e ZOFRAN ODT 4 MG TBDP 1 po q6hr PRN Nausea ONDAN SETRON 08815900057 No Longer Active Checo Conklin MD Active PERCOCET 5-325 MG TABS 1 tablet by mouth every 6 hours as needed OXYCODONE-ACETAMINOPHEN 22036070893 No Longer Active Checo Conklin MD Active PYRIDIUM 200 MG TABS take 1 tab po TID prn urinary pain. 0 PHENAZOPYRIDINE HCL 96287373117 No Longer Active Checo Conklin MD Active FLUCONAZOLE 150 MG TABS take 1 tab po qday once 04/06 FLUCONAZOLE 44144716252 No Longer Active Dangelo Rangel MD Acti ve CIPRO 500 MG TAB 1 tablet by mouth twice daily CIPROFLOXACIN HCL 58552065302 No Longer Active Dangelo Rangel MD Active PYRIDIUM 200 MG TABS take 1 tab po TID prn urinary pain. 0 PYRIDIUM 200 MG TABS 1159992 PHENAZOPYRIDINE HCL Inactive PERCOCET 5-325 MG TABS 1 tablet by mouth every 6 hours as needed PERCOCET 5-325 MG TABS 8990150 OXYCODONE-ACETAMINOPHEN I nactive ZOFRAN ODT 4 MG TBDP 1 po q6hr PRN Nausea ZOFRAN ODT 4 MG TBDP 797884 ONDANSETRON Inactive FOCALIN XR 15 MG [id number] 1 po q a.m. F OCALIN XR 15 MG [id number] DEXMETHYLPHENIDATE HCL Inactive LORTAB 5 5-500 MG TABS 1/2 to 1 tablet by mouth flaquito ry 4 hours as needed for pain LORTAB 5 5-500 MG TABS HYDROCODONE-A CETAMINOPHEN Inactive PERCOCET 10-325 MG TABS 1 tablet every 6 hours as needed for pain PERCOCET 10-325 MG TABS 1376405 OXYCODONE-ACETAMINOPHEN Inactive FOCALIN XR 10 MG [id number] 1 po q a.m. F OCALIN XR 10 MG [id number] DEXMETHYLPHENIDATE HCL Inactive CEFDINIR 300 MG CAPS [...] PRN Insomnia TRAZODONE HCL 100 MG TAB 890609 TRAZODONE HCL Inactive CONCERTA 18 MG CR-TABS [...] s prn cough HYDROCODONE-ACETAMINOPHEN 5-325 MG TABS 978610 HYDROCODONE-ACETAMINOPHEN Inactive PHENAZOPYRIDINE HCL 200 MG TABS take 1 tab po TID for bladder pa in PHENAZOPYRIDINE HCL 200 MG TABS 8306492 PHENAZOPYRIDINE HCL Inactive HYDROCODONE-ACETAMINOPHEN 5-325 MG TABS 1 po q 6hr PRN Pain 2013 HYDROCODONE-ACETAMINOPHEN 5-325 MG TABS 896254 HYDROCODONE-ACETAMINOPHEN Inactive CELEXA 20 MG TABS 1 tablet by mouth daily CELEXA 20 MG TABS 593675 CITALOPRAM HYDROBROMIDE Inactive REGLAN 10 MG TAB 1 po TID PRN Nausea REGLAN 10 MG TAB 509058 METOCLOPRAMIDE HCL Inactive LAMISIL 250 MG TAB 1 po qd LAMISIL 250 MG TAB 669437 TERBINAFINE HCL Inactive DICLOFENAC SODIUM 75 MG TBEC 1 tablet by mouth twice daily P RN Knee pain DICLOFENAC SODIUM 75 MG [facility] 474758 DICLOFENAC S ODIUM Inactive METOCLOPRAMIDE HCL 10 MG ORAL TABS take one PO tid PRN nausea 20 29/12/14 METOCLOPRAMIDE HCL 10 MG ORAL TABS 923203 METOCLOPRAMID E HCL Inactive TERBINAFINE HCL 250 MG ORAL TABS take one table PO one time abran y TERBINAFINE HCL 250 MG ORAL TABS 521935 TERBINAFINE HCL Inactive BUPROPION HCL ER (SR) 100 MG ORAL [id number] take one t ablet by mouth one time daily for one week then take 1 two times daily BUPROPION HCL ER (SR) 100 MG ORAL [id number] BUPROPION HCL Inacti ve TRAVEL SICKNESS 25 MG ORAL CHEW chew and swallow one t ablet every 6 hours as needed TRAVEL SICKNESS 25 MG ORAL CHEW 971727 MECLIZINE HCL Inactive SUMATRIPTAN SUCCINATE 100 MG ORAL TABS Take one PRN for migrane SUMATRIPTAN SUCCINATE 100 MG ORAL TABS 284810 SUMATRIPT AN SUCCINATE Inactive COMPRO 25 MG RECTAL SUPP insert or apply one supposit ory rectally as directed every 12 hours as needed for nausea COMP RO 25 MG RECTAL SUPP 004216 PROCHLORPERAZINE Inactive ONDANSETRON [address] one tablet on tongue and allow to dissolve every 6 hours as needed for vomitting ON DANSETRON 8 MG ORAL TBDP 036928 ONDANSETRON Inactive HYDROCODONE-ACETAMINOPHEN 5-325 MG TABS 0.5 to 1 tab b y mouth every 6 hours as needed HYDROCODONE-ACETAMINOPHEN 5-325 MG TABS 8 07411 HYDROCODONE-ACETAMINOPHEN Inactive BACTRIM DS 800-160 MG TAB 1 tab by mouth twice daily 2 BACTRIM DS 800-160 MG TAB 411813 TRIMETHOPRIM-SULFAMETHOXAZOLE Inac tive DIFLUCAN 150 MG TAB 1 tablet by mouth if needed, hold until symptoms start DIFLUCAN 150 MG TAB 19760325 FLUCONAZOLE Inactive IBUPROFEN 800 MG TABS 1 tab every 8 hours with food 31/03/21 IBUPROFEN 800 MG TABS 051587 IBUPROFEN Inactive HYDROCODONE-ACETAMINOPHEN 5-325 MG TABS 1 tab by mouth every 6 hours as needed HYDROCODONE-ACETAMINOPHEN 5-325 MG TABS 330717 HYDROCODONE-ACETAMINOPHEN Inactive BACTROBAN 2 % CREAM Apply to affected area BID for up to 10 days BACTROBAN 2 % CREAM 054133 MUPIROCIN CALCIUM Inactive MAGNESIUM CITRATE 1.745 GM/30ML ORAL SOLN 150ml po BID PRN C onstipation MAGNESIUM CITRATE 1.745 GM/30ML ORAL SOLN 097785 0 MAGNESIUM CITRATE Inactive DIFLUCAN 150 MG TAB 1 tablet by mouth qod DIFLUCAN 150 MG TAB 185454 FLUCONAZOLE Inactive BACTRIM DS 800-160 MG TAB 1 tab by mouth twice daily 2 BACTRIM DS 800-160 MG TAB 806669 TRIMETHOPRIM-SULFAMETHOXAZOLE Inac tive CLARITIN 10 MG TAB 1 tablet by mouth daily as needed for allergi es CLARITIN 10 MG TAB 221354 LORATADINE Inactive FLUTICASONE PROPIONATE 50 MCG/ACT NASAL SUSP 2 sprays/ nostril qd PRN Congestion/Allergies FLUTICASONE PROPION ATE 50 MCG/ACT NASAL SUSP 7708719 FLUTICASONE PROPIONATE Inactive CIPRO 500 MG TAB 1 tablet by mouth twice daily CIPRO 500 MG TAB 236642 CIPROFLOXACIN HCL Inactive FLUCONAZOLE 150 MG TABS take 1 tab po qday once 04/06 FLUCONAZOLE 150 MG TABS 292957 FLUCONAZOLE Inactive ZITHROMAX Z-KARTHIK 250 MG TABS 2 today, then 1 daily for 4 days 201 09/18/28 ZITHROMAX Z-KARTHIK 250 MG TABS 1659185 AZITHROMYCIN Inac tive PREDNISONE 20 MG TAB 2 tabs daily for 3 days, 1 t ab daily for 3 days, 1/2 tab daily for 2 days PREDNISONE 20 MG TAB 994946 PREDNISON E Inactive AZITHROMYCIN 250 MG TABS 2 po qd x 1 day, then 1 po qd x 4 days AZITHROMYCIN 250 MG TABS 8906256 AZITHROMYCIN Inactiv e PREDNISONE 20 MG TAB 2 tabs daily for 3 days, 1 t ab daily for 3 days, 1/2 tab daily for 2 days PREDNISONE 20 MG TAB 360048 PREDNISON E Inactive CEFDINIR 300 MG CAPS by mouth twice a day CEFDINIR 300 MG CAPS 000274 CEFDINIR Inactive TRIAMCINOLONE ACETONIDE 0.1 % OINT Apply to affected a reas TID for up to 2 weeks TRIAMCINOLONE ACETONIDE 0.1 % OINT 161007 6 TRIAMCINOLONE ACETONIDE Inactive PREDNISONE 20 MG TAB 2 tabs daily for 3 days, 1 t ab daily for 3 days, 1/2 tab daily for 2 days PREDNISONE 20 MG TAB 912866 PREDNISON E Inactive BACTRIM DS 800-160 MG TABS 1 po BID x 7 days 0 BACTRIM DS 800-160 MG TABS 315830 SULFAMETHOXAZOLE-TRIMETHOPRIM Inactive CIPRO 500 MG TAB 1 tablet by mouth twice daily CIPRO 500 MG TAB 830061 CIPROFLOXACIN HCL Inactive AZITHROMYCIN 250 MG TABS 2 po qd x 1 day, then 1 po qd x 4 days AZITHROMYCIN 250 MG TABS 5930537 AZITHROMYCIN Inactiv e FLAGYL 500 MG TAB 1 tablet by mouth bid FLAGYL 500 MG TAB 686210 METRONIDAZOLE Inactive AZITHROMYCIN 250 MG TABS 2 po qd x 1 day, then 1 po qd x 4 days AZITHROMYCIN 250 MG TABS 3181596 AZITHROMYCIN Inactiv e AMOXICILLIN 500 MG ORAL CAPS 2 po BID x 10 days 09/12 AMOXICILLIN 500 MG ORAL CAPS 085802 AMOXICILLIN Inactive Immunizations Vaccine Administration Date Value [...] Report: CBC W/DIFF, Comp. Metabolic [place], [place] [facility] [place] sodium, serum 139 mmol/L 149-404 1335/10/21 carbon dioxide, venous blood 33.5 mmol/L 21.0-32 [...] Report: CBC W/DIFF, Comp. Metabolic Panel, Qual [facility] [place] Hematology leukocyte count, blood 7.9 10^3/MM^3 [...] PANEL - Chemistry cholesterol, serum 192 mg/dL 700-289 6401/02/20 HDL cholesterol, serum 31 mg/dL > OR [...] 11 .0-15.0 platelet count 218 THOUSAND/UL 10*3/mm3 549-190 5237/02/20 mean platelet volume 9.7 fL 7.5-12.5 Lab Report: Chlamydia/GC APTIMA/60138 - Lab chlamydia DNA probe NOT DETECTED NOT DETECTED Lab Report: Chlamydia/GC APTIMA/46282 - Microbiology Neisseria gonorrhoeae DNA probe NOT DETECTED NO T DETECTED Lab Report: Comp. Metabolic Panel, Thyro id Stimulating Hormone (L), Eryt ... - Chemistry sodium, serum 137 mmol/L 344-845 0473/05/27 carbon dioxide, venous blood 29.1 mmol/L 21.0-32 [...] 5.0-8.5 Encounters Code Encounter Date Provider Facility CPT-29394 Level 3 Est. Patient 11:29:55 CDT Checo Conklin MD [facility] CPT-74603 Level 4 Est. Patient 11:08:12 DIRECTOR OF FINANCIAL PLANNING Checo Conklin MD [facility] CPT-31772 Level 4 Est. Patient 16:06:48 DIRECTOR OF FINANCIAL PLANNING Checo Conklin MD [facility] CPT-87720 Level 3 Est. Patient 09:11:49 CDT Efren almendarez [facility] CPT-07519 Level 2 Est. Patient 19:53:27 CDT Tanner hill MD [facility] CPT-04115 Level 3 Est. Patient 09:15:34 CDT Efren almendarez [facility] CPT-26172 Level 3 Est. Patient 11:28:51 DIRECTOR OF FINANCIAL PLANNING Efren almendarez [facility] CPT-11316 Level 4 Est. Patient 13:55:46 DIRECTOR OF FINANCIAL PLANNING Checo Conklin MD [facility] CPT-63228 Level 4 Est. Patient 17:10:53 CDT Checo Conklin MD [facility] CPT-05135 Level 3 Est. Patient 15:56:22 CDT Checo Conklin MD [facility] CPT-12184 Level 3 Est. Patient 15:29:07 CDT Checo Conklin MD [facility] CPT-62628 Level 3 Est. Patient 14:38:41 CDT Checo Conklin MD [facility] CPT-86158 Level 3 Est. Patient 15:22:03 DIRECTOR OF FINANCIAL PLANNING Thomas reynolds DO [facility] CPT-72662 Level 3 Est. Patient 13:34:17 DIRECTOR OF FINANCIAL PLANNING Checo Conklin MD [facility] CPT-58399 Level 3 Est. Patient 12:29:32 CDT Dangelo arroyo MD [facility] CPT-69715 Level 3 Est. Patient 16:53:02 CDT Checo Conklin MD [facility] CPT-48278 Level 3 Est. Patient 16:37:13 CDT Checo Conklin MD [facility] CPT-51090 Level 3 Est. Patient 16:16:59 CDT Paul Hamlin MD [facility] CPT-59773 Level 3 Est. Patient 14:20:13 CDT Dangelo arroyo MD [facility] CPT-43161 Level 4 Est. Patient 11:29:33 CDT Checo Conklin MD [facility] CPT-24334 Level 3 Est. Patient 17:08:31 CDT Checo Conklin MD [facility] CPT-05111 Level 3 Est. Patient 16:50:42 DIRECTOR OF FINANCIAL PLANNING Checo Conklin MD [facility] CPT-73566 Level 4 Est. Patient 09:26:08 DIRECTOR OF FINANCIAL PLANNING Checo Conklin MD [facility] CPT-36204 Level 3 Est. Patient 11:37:10 CDT Checo Conklin MD [facility] CPT-43334 Level 4 Est. Patient 14:07:38 CDT Checo Conklin MD [facility] CPT-71923 Level 3 Est. Patient 09:54:41 CDT Checo Conklin MD [facility] CPT-20214 Level 3 Est. Patient 11:10:54 CDT Paul Hamlin MD [facility] CPT-45137 Level 3 Est. Patient 14:16:56 DIRECTOR OF FINANCIAL PLANNING Checo Conklin MD [facility] CPT-16073 Level 3 Est. Patient 11:04:11 DIRECTOR OF FINANCIAL PLANNING Checo Conklin MD [facility] CPT-41068 Level 3 Est. Patient 17:09:26 CDT Dangelo arroyo MD [facility] CPT-47431 Level 3 Est. Patient 16:54:37 CDT Checo Conklin MD [facility] Procedures Code Procedure Name Date Entry Date Standard Desc ription CPT-77377 UA w micro - LAB USE ONLY 17:06:46 CDT 2015 CPT-19912 [facility] Qual - LAB USE ONLY 17:06:46 CDT 05/06 CPT-06193 CMP - LAB USE ONLY 17:06:46 CDT CPT-48593 CBC with Diff - LAB USE ONLY 17:06:45 CDT 2 CPT-97826 Venipuncture Draw Fee 17:06:45 CDT CPT-LR Lesion Removal 19:53:27 CDT CPT-OV Office Visit 11:31:28 CDT CPT-07280 Tubersol 09:39:29 CDT CPT-J2550 Phenergan 25 mg (Promethazine) 13:59:02 DIRECTOR OF FINANCIAL PLANNING CPT-J1885 Toradol 60 mg (Ketorolac) 13:59:02 DIRECTOR OF FINANCIAL PLANNING 2012
--- OUTSIDE RECORDS SUMMARY | 2019-09-29 01:32 | XMS REPORT | Clinical Summary ---
Author Author Admin, Bethany Gonzales Organization [employer] Address Unknown Phone Unavailable Allergies, Adverse Reactions, [...] site Knee pain, right 719.46 Resolved Checo Cnoklin MD Pain in joint involving lower leg [...] CAPSULE 1 po qd PRN Edema HYDROCHLOROTHIAZIDE 24386458445 Active Checo Conklin MD Ac tive IBUPROFEN 800 MG ORAL TABLET 1 tab every 8 hours as needed for p ain IBUPROFEN 61843705386 Active Dangelo Rangel MD Acti ve PAROXETINE HCL 40 MG ORAL TABLET 1 po qd PAR OXETINE HCL 38681754548 Active Checo Conklin MD Active MIRALAX ORAL POWDER 8.5 to 17g po qd PRN Constipation POLYETHYLENE GLYCOL 3350 81310344197 No Longer Active Checo Conklin MD Active PROTONIX 40 MG ORAL TABLET DELAYED RELEASE 1 pill by [facility] daily, for acid reflux PANTOPRAZOLE SODIUM 05565307947 No Longer Activ e Corry Méndez LPN Active FLAGYL 500 MG ORAL TABLET 1 tablet by mouth bid 08/29 METRONIDAZOLE 73826767766 No Longer Active Corry Méndez LPN Active CLARITHROMYCIN 500 MG ORAL TABLET 1 tab po BID x 14 days CLARITHROMYCIN 21446981193 No Longer Active Corry Méndez LPN Active AMOXICILLIN 500 MG ORAL CAPSULE 2 po BID x 14 days for H. Pylori AMOXICILLIN 27836368300 No Longer Active Corry Méndez LPN Active FLUTICASONE PROPIONATE 50 MCG/ACT NASAL SUSPENSION 2 s prays/nostril qd PRN Congestion/Allergies FLUTICASONE PROPIONATE 2160886410 9 No Longer Active Checo Conklin MD Active AMOXICILLIN 500 MG ORAL CAPSULE 2 po BID x 10 days 201 01/15/27 AMOXICILLIN 11938437733 No Longer Active Checo Conklin MD Activ e CLARITIN 10 MG ORAL TABLET 1 tablet by mouth daily as needed for allergies LORATADINE 24061094297 No Longer Active Checo Ortiz MD Active BACTRIM DS 800-160 MG ORAL TABLET 1 tab by mouth twice daily 201 12/19/26 TRIMETHOPRIM-SULFAMETHOXAZOLE 98893156008 No Longer Active Ragini Carrillo MD Active DIFLUCAN 150 MG ORAL TABLET 1 tablet by mouth qod 2015 FLUCONAZOLE 17808635874 No Longer Active Efren eMdel APRN Act mike AZITHROMYCIN 250 MG ORAL TABLET 2 po qd x 1 day, then 1 po q d x 4 days AZITHROMYCIN 68515713215 No Longer Active Efren flores APRN Active FLAGYL 500 MG ORAL TABLET 1 tablet by mouth bid 04/13 METRONIDAZOLE 88513956408 No Longer Active Checo Conklin MD Acti ve FOCALIN XR 10 MG ORAL CAPSULE EXTENDED RELEASE 24 HOUR 1 po q a.m. DEXMETHYLPHENIDATE HCL 13842073951 Active Checo Conklin MD Active MAGNESIUM CITRATE 1.745 GM/30ML ORAL SOLUTION 150ml po BID P RN Constipation MAGNESIUM CITRATE 29089045709 No Longer Active Checo Conklin MD Active BACTROBAN 2 % EXTERNAL CREAM Apply to affected area BID for up to 10 days MUPIROCIN CALCIUM 25115172921 No Longer Active Checo Conklin MD Active HYDROCODONE-ACETAMINOPHEN 5-325 MG ORAL TABLET 1 tab b y mouth every 6 hours as needed HYDROCODONE-ACETAMINOPHEN 81190325865 No Longer Active Checo Conklin MD Active IBUPROFEN 800 MG ORAL TABLET 1 tab every 8 hours with food 03/20 IBUPROFEN 12622972032 No Longer Active Checo Conklin MD Active DIFLUCAN 150 MG ORAL TABLET 1 tablet by mouth if neede d, hold until symptoms start FLUCONAZOLE 81670216647 No Longer Active Checo Conklin MD Active BACTRIM DS 800-160 MG ORAL TABLET 1 tab by mouth twice daily 201 11/23/03 TRIMETHOPRIM-SULFAMETHOXAZOLE 99911371150 No Longer Active Bonnie Méndez LPN Active HYDROCODONE-ACETAMINOPHEN 5-325 MG ORAL TABLET 0.5 to 1 tab by mouth every 6 hours as needed HYDROCODONE-ACETAMINOPHEN 57585880592 No Longer Active Checo Conklin MD Active ONDANSETRON 8 MG ORAL TABLET DISINTEGRATING place one tablet on tongue and allow to dissolve every 6 hours as needed for vomitting ONDANSETRON 12314580036 No Longer Active Checo Conklin MD Activ e COMPRO 25 MG RECTAL SUPPOSITORY insert or apply one garza ppository rectally as directed every 12 hours as needed for nausea PROCHLORPERAZINE 39501338915 No Longer Active Checo Conklin MD A ctive SUMATRIPTAN SUCCINATE 100 MG ORAL TABLET Take one PRN for migran e SUMATRIPTAN SUCCINATE 22074034743 No Longer Active Checo Conklin MD Active TRAVEL SICKNESS 25 MG ORAL TABLET CHEWABLE chew and sw allow one tablet every 6 hours as needed MECLIZINE HCL 57584677974 No Longer A ctive Checo Conklin MD Active BUPROPION HCL ER (SR) 100 MG ORAL TABLET EXTENDED RELE ASE 12 HOUR take one tablet by mouth one time daily for one week then take 1 two times daily BUPROPION HCL 78444474977 No Longer Active Checo gallagher MD Active TERBINAFINE HCL 250 MG ORAL TABLET take one table PO one time da moises TERBINAFINE HCL 65202925144 No Longer Active Checo Conklin MD Active METOCLOPRAMIDE HCL 10 MG ORAL TABLET take one PO tid PRN nausea METOCLOPRAMIDE HCL 25514995098 No Longer Active Checo Conklin MD Active DICLOFENAC SODIUM 75 MG ORAL TABLET DELAYED RELEASE 1 tablet by mouth twice daily PRN Knee pain DICLOFENAC SODIUM 09545837239 No Longer Active Checo Conklin MD Active LAMISIL 250 MG ORAL TABLET 1 po qd TERBINAFI NE HCL 01555284041 No Longer Active Checo Conklin MD Active REGLAN 10 MG ORAL TABLET 1 po TID PRN Nausea 3 METOCLOPRAMIDE HCL 30701056798 No Longer Active Checo Conklin MD Active CELEXA 20 MG ORAL TABLET 1 tablet by mouth daily 09/26 CITALOPRAM HYDROBROMIDE 15884271449 No Longer Active Checo Conklin MD Active AZITHROMYCIN 250 MG ORAL TABLET 2 po qd x 1 day, then 1 po q d x 4 days AZITHROMYCIN 07778373321 No Longer Active Checo Ortiz MD Active HYDROCODONE-ACETAMINOPHEN 5-325 MG ORAL TABLET 1 po q 6hr PRN Pa in HYDROCODONE-ACETAMINOPHEN 06541375185 No Longer Active Lenora Conklin MD Active PHENAZOPYRIDINE HCL 200 MG ORAL TABLET take 1 tab po TID for bladder pain PHENAZOPYRIDINE HCL 32362060258 No Longer Active Joe Conklin MD Active CIPRO 500 MG ORAL TABLET 1 tablet by mouth twice daily CIPROFLOXACIN HCL 17486262363 No Longer Active Dangelo Rangel MD Active HYDROCODONE-ACETAMINOPHEN 5-325 MG ORAL TABLET 1/2 to 1 po q 4 hours prn cough HYDROCODONE-ACETAMINOPHEN 38315738632 No Longer Activ e Dangelo Rangel MD Active BACTRIM DS 800-160 MG ORAL TABLET 1 po BID x 7 days 29/04/10 SULFAMETHOXAZOLE-TRIMETHOPRIM 45459775087 No Longer Active Checo Conklin MD Active PREDNISONE 20 MG ORAL TABLET 2 tabs daily for 3 days, 1 tab daily for 3 days, 1/2 tab daily for 2 days PREDNISONE 34517287822 No Longer Active Checo Conklin MD Active TRIAMCINOLONE ACETONIDE 0.1 % EXTERNAL OINTMENT Apply to affected areas TID for up to 2 weeks TRIAMCINOLONE ACETONIDE 28705298737 No Longer Active Checo Conklin MD Active CEFDINIR 300 MG ORAL CAPSULE by mouth twice a day 2013 CEFDINIR 68569081304 No Longer Active Dangelo Rangel MD Acti ve BUPROPION HCL ER (SMOKING DET) 150 MG ORAL TABLET EXTE NDED RELEASE 12 HOUR 1 a day for 1 week then 1 twice a day BUPROPION HCL (SMOKING DETER) 78361277740 No Longer Active Checo Conklin MD Active SIMVASTATIN 20 MG ORAL TABLET 1 po qd SIMVASTAT IN 71344724381 Active Checo Conklin MD Active CHANTIX STARTING MONTH KARTHIK 0.5 MG X 11 & 1 MG X 42 ORA L TABLET 0.5mg daily for 3 days, then 0.5mg BID for 4 days, then 1mg BID VARENICLINE TARTRATE 53821747281 No Longer Active Checo Conklin MD Activ e XANAX 0.5 MG ORAL TABLET 1 po BID PRN anxiety A LPRAZOLAM 92963990660 Active Checo Conklin MD Active CONCERTA 18 MG ORAL TABLET EXTENDED RELEASE 1 po q a.m. METHYLPHENIDATE HCL 14046348771 No Longer Active Checo Conklin MD Active AMBIEN 5 MG ORAL TABLET 1 po qHS PRN Insomnia Z OLPIDEM TARTRATE 76923210995 Active Checo Conklin MD Active TRAZODONE HCL 100 MG ORAL TABLET 0.5 to 1 po qHS PRN Insomnia 20 30/07/08 TRAZODONE HCL 21038014140 No Longer Active Checo Conklin MD Active FIORICET 325-50-40 MG TAB 1 tablet by mouth four times daily as needed [id number] 91929773685 No Longer Active Checo Conklin MD Active PHENERGAN CREAM* 25mg applied to wrist q6hr PRN Nausea PHENERGAN CREAM* No Longer Active Checo Gonzales ctive FLONASE 50 MCG/ACT NASAL SUSPENSION 1 spray each nostril am and hs FLUTICASONE PROPIONATE 47404331205 No Longer Active Checo Conklin MD Active ANTIPYRINE-BENZOCAINE 5.4-1.4 % OTIC SOLUTION 1-2 drops in affec yohannes ear BENZOCAINE-ANTIPYRINE 81262823777 No Longer Active Checo Conklin MD Active CEFDINIR 300 MG ORAL CAPSULE 1 po bid CEFDINIR 42497271593 No Longer Active Checo Conklin MD Active PREDNISONE 20 MG ORAL TABLET 2 tabs daily for 3 days, 1 tab daily for 3 days, 1/2 tab daily for 2 days PREDNISONE 85058308048 No Longer Active Checo Conklin MD Active AZITHROMYCIN 250 MG ORAL TABLET 2 po qd x 1 day, then 1 po q d x 4 days AZITHROMYCIN 00058347540 No Longer Active Checo Ortiz MD Active PREDNISONE 20 MG ORAL TABLET 2 tabs daily for 3 days, 1 tab daily for 3 days, 1/2 tab daily for 2 days PREDNISONE 40635139380 No Longer Active Checo Conklin MD Active ZITHROMAX Z-KARTHIK 250 MG ORAL TABLET 2 today, then 1 daily for 4 d ays AZITHROMYCIN 82207666585 No Longer Active Paul Hamlin MD Active FOCALIN XR 10 MG ORAL CAPSULE EXTENDED RELEASE 24 HOUR 1 po q a. m. DEXMETHYLPHENIDATE HCL 64456815435 No Longer Active Paul Hamlin MD Active PERCOCET 10-325 MG ORAL TABLET 1 tablet every 6 hours as needed for pain OXYCODONE-ACETAMINOPHEN 93299046518 No Longer Active Paul Hamlin MD Active LORTAB 5-500 MG ORAL TABLET 1/2 to 1 tablet by mouth e very 4 hours as needed for pain HYDROCODONE-ACETAMINOPHEN 88954744790 No Longer Active Checo Conklin MD Active FOCALIN XR 15 MG ORAL CAPSULE EXTENDED RELEASE 24 HOUR 1 po q a. m. DEXMETHYLPHENIDATE HCL 76370697414 No Longer Active Checo Conklin MD Active ZOFRAN ODT 4 MG ORAL TABLET DISINTEGRATING 1 po q6hr PRN Nausea ONDANSETRON 51510084183 No Longer Active Checo Conklin MD Active PERCOCET 5-325 MG ORAL TABLET 1 tablet by mouth every 6 hour s as needed OXYCODONE-ACETAMINOPHEN 68686838516 No Longer Active Checo Conklin MD Active PYRIDIUM 200 MG ORAL TABLET take 1 tab po TID prn urinary pain. PHENAZOPYRIDINE HCL 00090525563 No Longer Active Checo Joshua Active FLUCONAZOLE 150 MG ORAL TABLET take 1 tab po qday once FLUCONAZOLE 02191740046 No Longer Active Dangelo Rangel MD Acti ve CIPRO 500 MG ORAL TABLET 1 tablet by mouth twice daily CIPROFLOXACIN HCL 66544385861 No Longer Active Dangelo Rangel MD Active PYRIDIUM 200 MG ORAL TABLET take 1 tab po TID prn urinary pain. PYRIDIUM 200 MG ORAL TABLET 3542517 PHENAZOPYRIDINE HCL Inactive PERCOCET 5-325 MG ORAL TABLET 1 tablet by mouth every 6 hour s as needed PERCOCET 5-325 MG ORAL TABLET 6144852 OXYCODONE-ACETAMINOPHEN Inactive ZOFRAN ODT 4 MG ORAL TABLET DISINTEGRATING 1 po q6hr PRN Nausea ZOFRAN ODT 4 MG ORAL TABLET DISINTEGRATING 873253 ONDAN SETRON Inactive FOCALIN XR 15 MG [...] for pain PERCOCET 10-325 MG ORAL TABLET 0989740 OXYCODONE-ACETAMI NOPHEN Inactive FOCALIN XR 10 MG ORAL CAPSULE EXTENDED RELEASE 24 HOUR 1 po q a. m. FOCALIN XR 10 MG ORAL CAPSULE EXTENDED RELEASE 24 HOUR DEXMETHYLPHENIDATE HCL Inactive CEFDINIR 300 MG ORAL CAPSULE 1 po bid CEFDINI R 300 MG ORAL CAPSULE 057856 CEFDINIR Inactive ANTIPYRINE-BENZOCAINE 5.4-1.4 % OTIC SOLUTION 1-2 drops in affec yohannes ear ANTIPYRINE-BENZOCAINE 5.4-1.4 % OTIC SOLUTION BENZOCAINE-ANTIPYRINE Inactive FLONASE 50 MCG/ACT NASAL SUSPENSION 1 spray each nostril am and hs FLONASE 50 MCG/ACT NASAL SUSPENSION 2529110 FLUTICASONE PROPIONATE I nactive PHENERGAN CREAM* 25mg applied to wrist q6hr PRN Nausea PHENERGAN CREAM* Inactive FIORICET 325-50-40 MG TAB 1 tablet by mouth four times daily as needed FIORICET 325-50-40 MG TAB ACETAMINOPHEN-C AFF-BUTALBITAL Inactive TRAZODONE HCL 100 MG ORAL TABLET 0.5 to 1 po qHS PRN Insomnia 20 30/07/08 TRAZODONE HCL 100 MG ORAL TABLET 096892 TRAZODONE HCL Inactive CONCERTA 18 MG ORAL [...] cough HYDROCODONE-ACETAMINOPHEN 5-325 MG ORAL TABLET 8 02620 HYDROCODONE-ACETAMINOPHEN Inactive PHENAZOPYRIDINE HCL 200 MG ORAL TABLET take 1 tab po TID for bladder pain PHENAZOPYRIDINE HCL 200 MG ORAL TABLET 9932162 PHENAZOPYRIDINE HCL Inactive HYDROCODONE-ACETAMINOPHEN 5-325 MG ORAL TABLET 1 po q 6hr PRN Pa in HYDROCODONE-ACETAMINOPHEN 5-325 MG ORAL TABLET 789760 HYDROCODONE-ACETAMINOPHEN Inactive CELEXA 20 MG ORAL TABLET 1 tablet by mouth daily 09/26 CELEXA 20 MG ORAL TABLET 639839 CITALOPRAM HYDROBROMIDE Inactive REGLAN 10 MG ORAL TABLET 1 po TID PRN Nausea 3 REGLAN 10 MG ORAL TABLET 042630 METOCLOPRAMIDE HCL Inactive LAMISIL 250 MG ORAL TABLET 1 po qd L AMISIL 250 MG ORAL TABLET 953667 TERBINAFINE HCL Inactive DICLOFENAC SODIUM 75 MG ORAL TABLET DELAYED RELEASE 1 tablet by mouth twice daily PRN Knee pain DICLOFENAC SODIUM 75 MG ORAL TABLET DELAYED RELEASE 934728 DICLOFENAC SODIUM Inactive METOCLOPRAMIDE HCL 10 MG ORAL TABLET take one PO tid PRN nausea METOCLOPRAMIDE HCL 10 MG ORAL TABLET 828177 METOCLOPRAM ZACH HCL Inactive TERBINAFINE HCL 250 MG ORAL TABLET take one table PO one time da moises TERBINAFINE HCL 250 MG ORAL TABLET 928120 TERBINAFINE H CL Inactive BUPROPION HCL ER [...] SICKNESS 25 M G ORAL TABLET CHEWABLE 777075 MECLIZINE HCL Inactive SUMATRIPTAN SUCCINATE 100 MG ORAL TABLET Take one PRN for migran e SUMATRIPTAN SUCCINATE 100 MG ORAL TABLET 309830 SUMATRIPTAN SUCCINATE Inactive COMPRO 25 MG RECTAL SUPPOSITORY insert or apply one garza ppository rectally as directed every 12 hours as needed for nausea COMPRO 25 MG RECTAL SUPPOSITORY 368535 PROCHLORPERAZINE Inactive ONDANSETRON 8 MG ORAL TABLET DISINTEGRATING place one tablet on tongue and allow to dissolve every 6 hours as needed for vomitting ONDANSETRON 8 MG ORAL TABLET DISINTEGRATING 836606 ONDANSETRON Inactive HYDROCODONE-ACETAMINOPHEN 5-325 MG ORAL TABLET 0.5 to 1 tab by mouth every 6 hours as needed HYDROCODONE-ACETAMIN OPHEN 5-325 MG ORAL TABLET 763490 HYDROCODONE-ACETAMINOPHEN Inactive BACTRIM DS 800-160 MG ORAL TABLET 1 tab by mouth twice daily 201 11/23/03 BACTRIM DS 800-160 MG ORAL TABLET 090352 TRIMETHOPRIM-SULFAMETHOXAZOLE Inactive DIFLUCAN 150 MG ORAL TABLET 1 tablet by mouth if neede d, hold until symptoms start DIFLUCAN 150 MG ORAL TABLET 280646 FLUCONAZ OLE Inactive IBUPROFEN 800 MG ORAL TABLET 1 tab every 8 hours with food 03/20 IBUPROFEN 800 MG ORAL TABLET 948904 IBUPROFEN Krupa ctive HYDROCODONE-ACETAMINOPHEN 5-325 MG ORAL TABLET 1 tab b y mouth every 6 hours as needed HYDROCODONE-ACETAMINOPHEN 5-325 MG ORAL TABLET 426538 HYDROCODONE-ACETAMINOPHEN Inactive BACTROBAN 2 % EXTERNAL CREAM Apply to affected area BID for up to 10 days BACTROBAN 2 % EXTERNAL CREAM 134125 MUPIROCIN CA LCIUM Inactive MAGNESIUM CITRATE 1.745 GM/30ML ORAL SOLUTION 150ml po BID P RN Constipation MAGNESIUM CITRATE 1.745 GM/30ML ORAL SOLUTION 10 96194 MAGNESIUM CITRATE Inactive DIFLUCAN 150 MG ORAL TABLET 1 tablet by mouth qod 2015 DIFLUCAN 150 MG ORAL TABLET 025273 FLUCONAZOLE Inactive BACTRIM DS 800-160 MG ORAL TABLET 1 tab by mouth twice daily 201 12/19/26 BACTRIM DS 800-160 MG ORAL TABLET 689460 TRIMETHOPRIM-SULFAMETHOXAZOLE Inactive CLARITIN 10 MG ORAL TABLET 1 tablet by mouth daily as needed for allergies CLARITIN 10 MG ORAL TABLET 752048 LORATADINE I nactive FLUTICASONE PROPIONATE 50 MCG/ACT NASAL SUSPENSION 2 s prays/nostril qd PRN Congestion/Allergies FLUTICASONE PROPION ATE 50 MCG/ACT NASAL SUSPENSION 7900816 FLUTICASONE PROPIONATE Inactive MIRALAX ORAL POWDER 8.5 to 17g po qd PRN Constipation MIRALAX ORAL POWDER 758910 POLYETHYLENE GLYCOL 3350 Inactive CIPRO 500 MG ORAL TABLET 1 tablet by mouth twice daily CIPRO 500 MG ORAL TABLET 090451 CIPROFLOXACIN HCL Inactive FLUCONAZOLE 150 MG ORAL TABLET take 1 tab po qday once FLUCONAZOLE 150 MG ORAL TABLET 722922 FLUCONAZOLE Inactive ZITHROMAX Z-KARTHIK 250 MG ORAL TABLET 2 today, then 1 daily for 4 d ays ZITHROMAX Z-KARTHIK 250 MG ORAL TABLET 481052 AZITHROMYCIN Inactive PREDNISONE 20 MG ORAL TABLET 2 tabs daily for 3 days, 1 tab daily for 3 days, 1/2 tab daily for 2 days PREDNISONE 20 MG ORAL T ABLET 693821 PREDNISONE Inactive AZITHROMYCIN 250 MG ORAL TABLET 2 po qd x 1 day, then 1 po q d x 4 days AZITHROMYCIN 250 MG ORAL TABLET 724114 AZITHROMY SPARKLE Inactive PREDNISONE 20 MG ORAL TABLET 2 tabs daily for 3 days, 1 tab daily for 3 days, 1/2 tab daily for 2 days PREDNISONE 20 MG ORAL TABLET 976324 PREDNISONE Inactive CEFDINIR 300 MG ORAL CAPSULE by mouth twice a day 2013 CEFDINIR 300 MG ORAL CAPSULE 551995 CEFDINIR Inactive TRIAMCINOLONE ACETONIDE 0.1 % EXTERNAL OINTMENT Apply to affected areas TID for up to 2 weeks TRIAMCINOLONE ACETON ZACH 0.1 % EXTERNAL OINTMENT 5951648 TRIAMCINOLONE ACETONIDE Inactive PREDNISONE 20 MG ORAL TABLET 2 tabs daily for 3 days, 1 tab daily for 3 days, 1/2 tab daily for 2 days PREDNISONE 20 MG ORAL T ABLET 884223 PREDNISONE Inactive BACTRIM DS 800-160 MG ORAL TABLET 1 po BID x 7 days 29/04/10 BACTRIM DS 800-160 MG ORAL TABLET 473016 SULFAMETHOXAZOLE-TRIMETHOP RIM Inactive CIPRO 500 MG ORAL TABLET 1 tablet by mouth twice daily CIPRO 500 MG ORAL TABLET 037792 CIPROFLOXACIN HCL Inactive AZITHROMYCIN 250 MG ORAL TABLET 2 po qd x 1 day, then 1 po q d x 4 days AZITHROMYCIN 250 MG ORAL TABLET 325239 AZITHROMY SPARKLE Inactive FLAGYL 500 MG ORAL TABLET 1 tablet by mouth bid 04/13 FLAGYL 500 MG ORAL TABLET 327414 METRONIDAZOLE Inactive AZITHROMYCIN 250 MG ORAL TABLET 2 po qd x 1 day, then 1 po q d x 4 days AZITHROMYCIN 250 MG ORAL TABLET 917952 AZITHROMY SPARKLE Inactive AMOXICILLIN 500 MG ORAL CAPSULE 2 po BID x 10 days 201 01/15/27 AMOXICILLIN 500 MG ORAL CAPSULE 971195 AMOXICILLIN Inactive AMOXICILLIN 500 MG ORAL CAPSULE 2 po BID x 14 days for H. Pylori AMOXICILLIN 500 MG ORAL CAPSULE 731665 AMOXICILLIN Inactive CLARITHROMYCIN 500 MG ORAL TABLET 1 tab po BID x 14 days CLARITHROMYCIN 500 MG ORAL TABLET 723203 CLARITHROMYCIN Inacti ve FLAGYL 500 MG ORAL TABLET 1 tablet by mouth bid 08/29 FLAGYL 500 MG ORAL TABLET 733862 METRONIDAZOLE Inactive PROTONIX 40 MG ORAL TABLET DELAYED RELEASE 1 pill by m outh daily, for acid reflux PROTONIX 40 MG ORAL TABLET DELAYED RELEAS E 505057 PANTOPRAZOLE SODIUM Inactive Immunizations Vaccine Administration Date [...] ... - Chemistry sodium, serum 138 mmol/L 968-610 6576/06/27 carbon dioxide, venous blood 30.3 mmol/L 21.0-32 [...] dipstick 1+ Negative sodium, serum 139 mmol/L 679-971 5516/11/28 carbon dioxide, venous blood 26.0 mmol/L 21.0-32 [...] Negative Encounters Code Encounter Date Provider Facility CPT-16865 Level 4 Est. Patient 11:08:43 CDT Checo Conklin MD [facility] CPT-67705 [id number] Vst-Est Level III 09:37:41 CDT Dangelo Rangel MD [facility] CPT-77272 Level 4 Est. Patient 08:57:51 [employer] Checo Conklin MD [facility] CPT-26468 Level 3 Est. 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 CPT-90067 Level 3 Est. Patient 13:05:44 CDT Paul Hamlin MD [facility] CPT-34962 Level 3 Est. Patient 11:29:55 CDT Checo Conklin MD [facility] CPT-72029 Level 4 Est. 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 Patient 16:06:48 PERSONAL FIN[employer]CIAL PLANNER Checo Conklin MD [facility] CPT-71572 Level 3 Est. Patient 09:11:49 CDT Efren almendarez [facility] CPT-61463 Level 2 Est. Patient 19:53:27 CDT Tanner hill MD [facility] CPT-85106 Level 3 Est. Patient 09:15:34 CDT Efren almendarez [facility] CPT-15704 Level 3 Est. 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 CPT-09817 Level 4 Est. 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 Patient 17:10:53 CDT Checo Conklin MD [facility] CPT-94407 Level 3 Est. Patient 15:56:22 CDT Checo Conklin MD [facility] CPT-40730 Level 3 Est. Patient 15:29:07 CDT Checo Conklin MD [facility] CPT-67525 Level 3 Est. Patient 14:38:41 CDT Checo Conklin MD [facility] CPT-30879 Level 3 Est. Patient 15:22:03 PERSONAL FIN[employer]CIAL PL[employer]NER Thomas reynolds DO [facility] CPT-90508 Level 3 Est. Patient 13:34:17 PERSONAL FIN[employer]CIAL PL[employer]NER Checo Conklin MD [facility] CPT-58097 Level 3 Est. Patient 12:29:32 CDT Dangelo arroyo MD [facility] CPT-48602 Level 3 Est. Patient 16:53:02 CDT Checo Conklin MD [facility] CPT-50073 Level 3 Est. Patient 16:37:13 CDT Checo Conklin MD [facility] CPT-91480 Level 3 Est. Patient 16:16:59 CDT Paul Hamlin MD [facility] CPT-33183 Level 3 Est. Patient 14:20:13 CDT Dangelo arroyo MD [facility] CPT-31843 Level 4 Est. Patient 11:29:33 CDT Checo Conklin MD [facility] CPT-64730 Level 3 Est. Patient 17:08:31 CDT Checo Conklin MD [facility] CPT-88186 Level 3 Est. Patient 16:50:42 PERSONAL FIN[employer]CIAL PL[employer]NER Checo Conklin MD [facility] CPT-69025 Level 4 Est. Patient 09:26:08 PERSONAL FIN[employer]CIAL PLANNER Checo Conklin MD [facility] CPT-03981 Level 3 Est. Patient 11:37:10 CDT Checo Conklin MD [facility] CPT-60031 Level 4 Est. Patient 14:07:38 CDT Checo Conklin MD [facility] CPT-82358 Level 3 Est. Patient 09:54:41 CDT Checo Conklin MD [facility] CPT-63193 Level 3 Est. Patient 11:10:54 CDT Paul Hamlin MD [facility] CPT-00324 Level 3 Est. Patient 14:16:56 PERSONAL FIN[employer]CIAL PLANNER Checo Conklin MD [facility] CPT-78967 Level 3 Est. 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 Patient 17:09:26 CDT Dangelo arroyo MD [facility] CPT-17893 Level 3 Est. Patient 16:54:37 CDT Checo Conklin MD [facility] Procedures Code Procedure Name Date Entry Date Standard Desc ription CPT-80633 Wrist, right, comp 3V - XRAY USE ONLY 09:24:31 CDT CPT-00671 Abd compl w upright - XRAY USE ONLY 1 1:36:54 [employer]ERSONAL [employer]CIAL [employer]NER CPT-99767 UA w micro - LAB USE ONLY 17:06:46 CDT 2015 CPT-13312 [facility] Qual - LAB USE ONLY 17:06:46 CDT 05/06 CPT-21696 CMP - LAB USE ONLY 17:06:46 CDT CPT-97597 CBC with Diff - LAB USE ONLY 17:06:45 CDT 2 CPT-99817 Venipuncture Draw Fee 17:06:45 CDT CPT-LR Lesion Removal 19:53:27 CDT CPT-OV Office Visit 11:31:28 CDT CPT-34745 Tubersol 09:39:29 CDT CPT-J2550 Phenergan 25 mg (Promethazine) 13:59:02 PERSONAL [employer]CIAL PLANNER CPT-J1885 Toradol 60 mg (Ketorolac) 13:59:02 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
--- OUTSIDE RECORDS SUMMARY | 2019-09-29 01:32 | XMS REPORT | Clinical Summary ---
Author Author Admin, Bethany Ayala [facility] Address Unknown Phone Unavailable Allergies, Adverse Reactions, [...] Rangel MD Body Mass Index 25.0-25.9, adult FH BREAST CANCER ICD-V16.3 Inactive Checo [...] Ozzy Conklin MD Abdominal pain, generalized ICD-789.07 Ozzy Conklin MD Urinary frequency ICD-788.41 Ozzy Conklin MD Sinusitis, acute ICD-461.9 Inactive Checo Ortiz MD Repeated falls ICD-781.99 Ozzy ngo MD Abdominal pain, generalized ICD-789.07 Ozzy Conklin MD Nausea ICD-787.02 Ozzy Conklin MD 201 02/15/12 Medication List Medication Instructions Start Date Stop Date Generic Name NDC Status Provider Patient Instruction IBUPROFEN 800 MG ORAL TABLET 1 tab every 8 hours as needed for p ain IBUPROFEN [id number] Active Dangelo Rangel MD Acti ve PAROXETINE HCL 40 MG ORAL TABLET 1 po qd PAR OXETINE HCL 56850752969 Active Checo Conklin MD Active MIRALAX ORAL POWDER 8.5 to 17g po qd PRN Constipation POLYETHYLENE GLYCOL 3350 17793480055 No Longer Active Checo Conklin MD Active PROTONIX 40 MG ORAL TABLET DELAYED RELEASE 1 pill by m [facility] daily, for acid reflux PANTOPRAZOLE SODIUM 98813544791 No Longer Activ e Corry Méndez LPN Active FLAGYL 500 MG ORAL TABLET 1 tablet by mouth bid 08/29 METRONIDAZOLE 03833317441 No Longer Active Corry Méndez LPN Active CLARITHROMYCIN 500 MG ORAL TABLET 1 tab po BID x 14 days CLARITHROMYCIN 75419494934 No Longer Active Corry Méndez LPN Active AMOXICILLIN 500 MG ORAL CAPSULE 2 po BID x 14 days for [facility]. Pylori AMOXICILLIN 40140550162 No Longer Active Corry Méndez LPN Active FLUTICASONE PROPIONATE 50 MCG/ACT NASAL SUSPENSION 2 s prays/nostril qd PRN Congestion/Allergies FLUTICASONE PROPIONATE 6943816545 9 No Longer Active Checo Conklin MD Active AMOXICILLIN 500 MG ORAL CAPSULE 2 po BID x 10 days 201 01/15/27 AMOXICILLIN 09685464393 No Longer Active Checo Conklin MD Activ e CLARITIN 10 MG ORAL TABLET 1 tablet by mouth daily as needed for allergies LORATADINE 65658912455 No Longer Active Checo Ortiz MD Active BACTRIM DS 800-160 MG ORAL TABLET 1 tab by mouth twice daily 201 12/19/26 TRIMETHOPRIM-SULFAMETHOXAZOLE 08676254130 No Longer Active Ragini Carrillo MD Active DIFLUCAN 150 MG ORAL TABLET 1 tablet by mouth qod 2015 FLUCONAZOLE 46326443858 No Longer Active 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 DEXMETHYLPHENIDATE HCL 54435714835 Active Checo Conklin MD Active MAGNESIUM CITRATE 1.745 GM/30ML ORAL SOLUTION 150ml po BID P RN Constipation MAGNESIUM CITRATE 82401573903 No Longer Active Checo Conklin MD Active BACTROBAN 2 % EXTERNAL CREAM Apply to affected area BID for up to 10 days MUPIROCIN CALCIUM 42720101342 No Longer Active Cehco Conklin MD Active HYDROCODONE-ACETAMINOPHEN 5-325 MG ORAL TABLET 1 tab b y mouth every 6 hours as needed HYDROCODONE-ACETAMINOPHEN 37431114247 No Longer Active Checo Conklin MD Active IBUPROFEN 800 MG ORAL TABLET 1 tab every 8 hours with food 03/20 IBUPROFEN 72653878845 No Longer Active Checo Conklin MD Active DIFLUCAN 150 MG ORAL TABLET 1 tablet by mouth if neede d, hold until symptoms start FLUCONAZOLE 28079301416 No Longer Active Checo Conklin MD Active BACTRIM DS 800-160 MG ORAL TABLET 1 tab by mouth twice daily 201 11/23/03 TRIMETHOPRIM-SULFAMETHOXAZOLE 08445698304 No Longer Active K bernice Méndez LPN Active HYDROCODONE-ACETAMINOPHEN 5-325 MG ORAL TABLET 0.5 to 1 tab by mouth every 6 hours as needed HYDROCODONE-ACETAMINOPHEN 08021347100 No Longer Active Checo Conklin MD Active ONDANSETRON 8 MG ORAL TABLET DISINTEGRATING place one tablet on tongue and allow to dissolve every 6 hours as needed for vomitting ONDANSETRON 31794913214 No Longer Active Checo Conklin MD Activ e COMPRO 25 MG RECTAL SUPPOSITORY insert or apply one garza ppository rectally as directed every 12 hours as needed for nausea PROCHLORPERAZINE 05512206919 No Longer Active Checo Conklin MD A ctive SUMATRIPTAN SUCCINATE 100 MG ORAL TABLET Take one PRN for migran e SUMATRIPTAN SUCCINATE 35217909941 No Longer Active Checo Conklin MD Active TRAVEL SICKNESS 25 MG ORAL TABLET CHEWABLE chew and sw allow one tablet every 6 hours as needed MECLIZINE HCL 30381225155 No Longer A ctive Checo Conklin MD Active BUPROPION HCL ER (SR) 100 MG ORAL TABLET EXTENDED RELE ASE 12 HOUR take one tablet by mouth one time daily for one week then take 1 two times daily BUPROPION HCL 61166284982 No Longer Active Checo gallagher MD Active TERBINAFINE HCL 250 MG ORAL TABLET take one table PO one time da moises TERBINAFINE HCL 25650470512 No Longer Active Checo Conklin MD Active METOCLOPRAMIDE HCL 10 MG ORAL TABLET take one PO tid PRN nausea METOCLOPRAMIDE HCL 05244596938 No Longer Active Checo Conklin MD Active DICLOFENAC SODIUM 75 MG ORAL TABLET DELAYED RELEASE 1 tablet by mouth twice daily PRN Knee pain DICLOFENAC SODIUM 81148134916 No Longer Active Checo Conklin MD Active LAMISIL 250 MG ORAL TABLET 1 po qd TERBINAFI NE HCL 20380067946 No Longer Active Checo Conklin MD Active REGLAN 10 MG ORAL TABLET 1 po TID PRN Nausea 3 METOCLOPRAMIDE HCL 99883096736 No Longer Active Checo Conklin MD Active CELEXA 20 MG ORAL TABLET 1 tablet by mouth daily 09/26 CITALOPRAM HYDROBROMIDE 37676230194 No Longer Active Checo Conklin MD Active AZITHROMYCIN 250 MG ORAL TABLET 2 po qd x 1 day, then 1 po q d x 4 days AZITHROMYCIN 61441082618 No Longer Active Checo Ortiz MD Active HYDROCODONE-ACETAMINOPHEN 5-325 MG ORAL TABLET 1 po q 6hr PRN Pa in HYDROCODONE-ACETAMINOPHEN 07358980845 No Longer Active Lenora Conklin MD Active PHENAZOPYRIDINE HCL 200 MG ORAL TABLET take 1 tab po TID for bladder pain PHENAZOPYRIDINE HCL 80600499544 No Longer Active Joe Conklin MD Active CIPRO 500 MG ORAL TABLET 1 tablet by mouth twice daily CIPROFLOXACIN HCL 15430339284 No Longer Active Dangelo Rangel MD Active HYDROCODONE-ACETAMINOPHEN 5-325 MG ORAL TABLET 1/2 to 1 po q 4 hours prn cough HYDROCODONE-ACETAMINOPHEN 63901791625 No Longer Activ e Dangelo Rangel MD Active BACTRIM DS 800-160 MG ORAL TABLET 1 po BID x 7 days 29/04/10 SULFAMETHOXAZOLE-TRIMETHOPRIM 42715706516 No Longer Active Checo Conklin MD Active PREDNISONE 20 MG ORAL TABLET 2 tabs daily for 3 days, 1 tab daily for 3 days, 1/2 tab daily for 2 days PREDNISONE 81631988780 No Longer Active Checo Conklin MD Active TRIAMCINOLONE ACETONIDE 0.1 % EXTERNAL OINTMENT Apply to affected areas TID for up to 2 weeks TRIAMCINOLONE ACETONIDE 89836728775 No Longer Active Checo Conklin MD Active CEFDINIR 300 MG ORAL CAPSULE by mouth twice a day 2013 CEFDINIR 01171482500 No Longer Active Dangelo Rangel MD Acti ve BUPROPION HCL ER (SMOKING DET) 150 MG ORAL TABLET EXTE NDED RELEASE 12 HOUR 1 a day for 1 week then 1 twice a day BUPROPION HCL (SMOKING DETER) 84688292413 No Longer Active Checo Conklin MD Active SIMVASTATIN 20 MG ORAL TABLET 1 po qd SIMVASTAT IN 54829268363 Active Checo Conklin MD Active CHANTIX STARTING MONTH KARTHIK 0.5 MG X 11 & 1 MG X 42 ORA L TABLET 0.5mg daily for 3 days, then 0.5mg BID for 4 days, then 1mg BID VARENICLINE TARTRATE 99709458492 No Longer Active Checo Conklin MD Activ e XANAX 0.5 MG ORAL TABLET 1 po BID PRN anxiety A LPRAZOLAM 46239420244 Active Checo Conklin MD Active CONCERTA 18 MG ORAL TABLET EXTENDED RELEASE 1 po q a.m. METHYLPHENIDATE HCL 14813730908 No Longer Active Checo Conklin MD Active AMBIEN 5 MG ORAL TABLET 1 po qHS PRN Insomnia Z OLPIDEM TARTRATE 74214521492 Active Checo Conklin MD Active TRAZODONE HCL 100 MG ORAL TABLET 0.5 to 1 po qHS PRN Insomnia 20 30/07/08 TRAZODONE HCL 57889236183 No Longer Active Checo Conklin MD Active FIORICET 325-50-40 MG TAB 1 tablet by mouth four times daily as needed [id number] 82822918321 No Longer Active Checo Conklin MD Active PHENERGAN CREAM* 25mg applied to wrist q6hr PRN Nausea PHENERGAN CREAM* No Longer Active Checo Gonzales ctive FLONASE 50 MCG/ACT NASAL SUSPENSION 1 spray each nostril am and hs FLUTICASONE PROPIONATE 98946462028 No Longer Active Checo Conklin MD Active ANTIPYRINE-BENZOCAINE 5.4-1.4 % OTIC SOLUTION 1-2 drops in affec yohannes ear BENZOCAINE-ANTIPYRINE 87344725167 No Longer Active Checo Conklin MD Active CEFDINIR 300 MG ORAL CAPSULE 1 po bid CEFDINIR 43759378132 No Longer Active Checo Conklin MD Active PREDNISONE 20 MG ORAL TABLET 2 tabs daily for 3 days, 1 tab daily for 3 days, 1/2 tab daily for 2 days PREDNISONE 34890926102 No Longer Active Checo Conklin MD Active AZITHROMYCIN 250 MG ORAL TABLET 2 po qd x 1 day, then 1 po q d x 4 days AZITHROMYCIN 20796121208 No Longer Active Checo Ortiz MD Active PREDNISONE 20 MG ORAL TABLET 2 tabs daily for 3 days, 1 tab daily for 3 days, 1/2 tab daily for 2 days PREDNISONE 41054315145 No Longer Active Checo Conklin MD Active ZITHROMAX Z-KARTHIK 250 MG ORAL TABLET 2 today, then 1 daily for 4 d ays AZITHROMYCIN 59382357295 No Longer Active Paul Hamlin MD Active FOCALIN XR 10 MG ORAL CAPSULE EXTENDED RELEASE 24 HOUR 1 po q a. m. DEXMETHYLPHENIDATE HCL 75408072934 No Longer Active Paul Hamlin MD Active PERCOCET 10-325 MG ORAL TABLET 1 tablet every 6 hours as needed for pain OXYCODONE-ACETAMINOPHEN 66830807585 No Longer Active Paul Hamlin MD Active LORTAB 5-500 MG ORAL TABLET 1/2 to 1 tablet by mouth e very 4 hours as needed for pain HYDROCODONE-ACETAMINOPHEN 01846747979 No Longer Active Checo Conklin MD Active FOCALIN XR 15 MG ORAL CAPSULE EXTENDED RELEASE 24 HOUR 1 po q a. m. DEXMETHYLPHENIDATE HCL 97245089684 No Longer Active Checo Conklin MD Active ZOFRAN ODT 4 MG ORAL TABLET DISINTEGRATING 1 po q6hr PRN Nausea ONDANSETRON 07083156241 No Longer Active Checo Conklin MD Active PERCOCET 5-325 MG ORAL TABLET 1 tablet by mouth every 6 hour s as needed OXYCODONE-ACETAMINOPHEN 79223335226 No Longer Active Checo Conklin MD Active PYRIDIUM 200 MG ORAL TABLET take 1 tab po TID prn urinary pain. PHENAZOPYRIDINE HCL 31987976761 No Longer Active Checo Joshua Active FLUCONAZOLE 150 MG ORAL TABLET take 1 tab po qday once FLUCONAZOLE 88776951459 No Longer Active Dangelo Rangel MD Acti ve CIPRO 500 MG ORAL TABLET 1 tablet by mouth twice daily CIPROFLOXACIN HCL 70091086216 No Longer Active Dangelo Rangel MD Active PYRIDIUM 200 MG ORAL TABLET take 1 tab po TID prn urinary pain. PYRIDIUM 200 MG ORAL TABLET 7072057 PHENAZOPYRIDINE HCL Inactive PERCOCET 5-325 MG ORAL TABLET 1 tablet by mouth every 6 hour s as needed PERCOCET 5-325 MG ORAL TABLET 6417181 OXYCODONE-ACETAMINOPHEN Inactive ZOFRAN ODT 4 MG ORAL TABLET DISINTEGRATING 1 po q6hr PRN Nausea ZOFRAN ODT 4 MG ORAL TABLET DISINTEGRATING 685623 ONDAN SETRON Inactive FOCALIN XR 15 MG [...] for pain PERCOCET 10-325 MG ORAL TABLET 2353568 OXYCODONE-ACETAMI NOPHEN Inactive FOCALIN XR 10 MG ORAL CAPSULE EXTENDED RELEASE 24 HOUR 1 po q a. m. FOCALIN XR 10 MG ORAL CAPSULE EXTENDED RELEASE 24 HOUR DEXMETHYLPHENIDATE HCL Inactive CEFDINIR 300 MG ORAL CAPSULE 1 po bid CEFDINI R 300 MG ORAL CAPSULE 352984 CEFDINIR Inactive ANTIPYRINE-BENZOCAINE 5.4-1.4 % OTIC SOLUTION 1-2 drops in affec yohannes ear ANTIPYRINE-BENZOCAINE 5.4-1.4 % OTIC SOLUTION 940164 BENZOCAINE-ANTIPYRINE Inactive FLONASE 50 MCG/ACT NASAL SUSPENSION 1 spray each nostril am and hs FLONASE 50 MCG/ACT NASAL SUSPENSION 6897927 FLUTICASONE PROPIONATE I nactive PHENERGAN CREAM* 25mg applied to wrist q6hr PRN Nausea PHENERGAN CREAM* Inactive FIORICET 325-50-40 MG TAB 1 tablet by mouth four times daily as needed FIORICET 325-50-40 MG TAB ACETAMINOPHEN-C AFF-BUTALBITAL Inactive TRAZODONE HCL 100 MG ORAL TABLET 0.5 to 1 po qHS PRN Insomnia 20 30/07/08 TRAZODONE HCL 100 MG ORAL TABLET 689843 TRAZODONE HCL Inactive CONCERTA 18 MG ORAL [...] cough HYDROCODONE-ACETAMINOPHEN 5-325 MG ORAL TABLET 8 94009 HYDROCODONE-ACETAMINOPHEN Inactive PHENAZOPYRIDINE HCL 200 MG ORAL TABLET take 1 tab po TID for bladder pain PHENAZOPYRIDINE HCL 200 MG ORAL TABLET 4220681 PHENAZOPYRIDINE HCL Inactive HYDROCODONE-ACETAMINOPHEN 5-325 MG ORAL TABLET 1 po q 6hr PRN Pa in HYDROCODONE-ACETAMINOPHEN 5-325 MG ORAL TABLET 019652 HYDROCODONE-ACETAMINOPHEN Inactive CELEXA 20 MG ORAL TABLET 1 tablet by mouth daily 09/26 CELEXA 20 MG ORAL TABLET 586764 CITALOPRAM HYDROBROMIDE Inactive REGLAN 10 MG ORAL TABLET 1 po TID PRN Nausea 3 REGLAN 10 MG ORAL TABLET 778228 METOCLOPRAMIDE HCL Inactive LAMISIL 250 MG ORAL TABLET 1 po qd L AMISIL 250 MG ORAL TABLET 441534 TERBINAFINE HCL Inactive DICLOFENAC SODIUM 75 MG ORAL TABLET DELAYED RELEASE 1 tablet by mouth twice daily PRN Knee pain DICLOFENAC SODIUM 75 MG ORAL TABLET DELAYED RELEASE 946509 DICLOFENAC SODIUM Inactive METOCLOPRAMIDE HCL 10 MG ORAL TABLET take one PO tid PRN nausea METOCLOPRAMIDE HCL 10 MG ORAL TABLET 369345 METOCLOPRAM ZACH HCL Inactive TERBINAFINE HCL 250 MG ORAL TABLET take one table PO one time da moises TERBINAFINE HCL 250 MG ORAL TABLET 563620 TERBINAFINE H CL Inactive BUPROPION HCL ER [...] SICKNESS 25 M G ORAL TABLET CHEWABLE 475260 MECLIZINE HCL Inactive SUMATRIPTAN SUCCINATE 100 MG ORAL TABLET Take one PRN for migran e SUMATRIPTAN SUCCINATE 100 MG ORAL TABLET 742997 SUMATRIPTAN SUCCINATE Inactive COMPRO 25 MG RECTAL SUPPOSITORY insert or apply one garza ppository rectally as directed every 12 hours as needed for nausea COMPRO 25 MG RECTAL SUPPOSITORY 176931 PROCHLORPERAZINE Inactive ONDANSETRON 8 MG ORAL TABLET DISINTEGRATING place one tablet on tongue and allow to dissolve every 6 hours as needed for vomitting ONDANSETRON 8 MG ORAL TABLET DISINTEGRATING 209211 ONDANSETRON Inactive HYDROCODONE-ACETAMINOPHEN 5-325 MG ORAL TABLET 0.5 to 1 tab by mouth every 6 hours as needed HYDROCODONE-ACETAMIN OPHEN 5-325 MG ORAL TABLET 092791 HYDROCODONE-ACETAMINOPHEN Inactive BACTRIM DS 800-160 MG ORAL TABLET 1 tab by mouth twice daily 201 11/23/03 BACTRIM DS 800-160 MG ORAL TABLET 19820918 TRIMETHOPRIM-SULFAMETHOXAZOLE Inactive DIFLUCAN 150 MG ORAL TABLET 1 tablet by mouth if neede d, hold until symptoms start DIFLUCAN 150 MG ORAL TABLET 548959 FLUCONAZ OLE Inactive IBUPROFEN 800 MG ORAL TABLET 1 tab every 8 hours with food 03/20 IBUPROFEN 800 MG ORAL TABLET 929248 IBUPROFEN Regan ctive HYDROCODONE-ACETAMINOPHEN 5-325 MG ORAL TABLET 1 tab b y mouth every 6 hours as needed HYDROCODONE-ACETAMINOPHEN 5-325 MG ORAL TABLET 653452 HYDROCODONE-ACETAMINOPHEN Inactive BACTROBAN 2 % EXTERNAL CREAM Apply to affected area BID for up to 10 days BACTROBAN 2 % EXTERNAL CREAM 662609 MUPIROCIN CA LCIUM Inactive MAGNESIUM CITRATE 1.745 GM/30ML ORAL SOLUTION 150ml po BID P RN Constipation MAGNESIUM CITRATE 1.745 GM/30ML ORAL SOLUTION 10 22050 MAGNESIUM CITRATE Inactive DIFLUCAN 150 MG ORAL TABLET 1 tablet by mouth qod 2015 DIFLUCAN 150 MG ORAL TABLET 290335 FLUCONAZOLE Inactive BACTRIM DS 800-160 MG ORAL TABLET 1 tab by mouth twice daily 201 12/19/26 BACTRIM DS 800-160 MG ORAL TABLET 594210 TRIMETHOPRIM-SULFAMETHOXAZOLE Inactive CLARITIN 10 MG ORAL TABLET 1 tablet by mouth daily as needed for allergies CLARITIN 10 MG ORAL TABLET 603072 LORATADINE I nactive FLUTICASONE PROPIONATE 50 MCG/ACT NASAL SUSPENSION 2 s prays/nostril qd PRN Congestion/Allergies FLUTICASONE PROPION ATE 50 MCG/ACT NASAL SUSPENSION 7784854 FLUTICASONE PROPIONATE Inactive MIRALAX ORAL POWDER 8.5 to 17g po qd PRN Constipation MIRALAX ORAL POWDER 760954 POLYETHYLENE GLYCOL 3350 Inactive CIPRO 500 MG ORAL TABLET 1 tablet by mouth twice daily CIPRO 500 MG ORAL TABLET 334404 CIPROFLOXACIN HCL Inactive FLUCONAZOLE 150 MG ORAL TABLET take 1 tab po qday once FLUCONAZOLE 150 MG ORAL TABLET 755468 FLUCONAZOLE Inactive ZITHROMAX Z-KARTHIK 250 MG ORAL TABLET 2 today, then 1 daily for 4 d ays ZITHROMAX Z-KARTHIK 250 MG ORAL TABLET 875188 AZITHROMYCIN Inactive PREDNISONE 20 MG ORAL TABLET 2 tabs daily for 3 days, 1 tab daily for 3 days, 1/2 tab daily for 2 days PREDNISONE 20 MG ORAL T ABLET 530210 PREDNISONE Inactive AZITHROMYCIN 250 MG ORAL TABLET 2 po qd x 1 day, then 1 po q d x 4 days AZITHROMYCIN 250 MG ORAL TABLET 144525 AZITHROMY SPARKLE Inactive PREDNISONE 20 MG ORAL TABLET 2 tabs daily for 3 days, 1 tab daily for 3 days, 1/2 tab daily for 2 days PREDNISONE 20 MG ORAL TABLET 539455 PREDNISONE Inactive CEFDINIR 300 MG ORAL CAPSULE by mouth twice a day 2013 CEFDINIR 300 MG ORAL CAPSULE 664363 CEFDINIR Inactive TRIAMCINOLONE ACETONIDE 0.1 % EXTERNAL OINTMENT Apply to affected areas TID for up to 2 weeks TRIAMCINOLONE ACETON ZACH 0.1 % EXTERNAL OINTMENT 9380528 TRIAMCINOLONE ACETONIDE Inactive PREDNISONE 20 MG ORAL TABLET 2 tabs daily for 3 days, 1 tab daily for 3 days, 1/2 tab daily for 2 days PREDNISONE 20 MG ORAL T ABLET 116233 PREDNISONE Inactive BACTRIM DS 800-160 MG ORAL TABLET 1 po BID x 7 days 29/04/10 BACTRIM DS 800-160 MG ORAL TABLET 801963 SULFAMETHOXAZOLE-TRIMETHOP RIM Inactive CIPRO 500 MG ORAL TABLET 1 tablet by mouth twice daily CIPRO 500 MG ORAL TABLET 019989 CIPROFLOXACIN HCL Inactive AZITHROMYCIN 250 MG ORAL TABLET 2 po qd x 1 day, then 1 po q d x 4 days AZITHROMYCIN 250 MG ORAL TABLET 186479 AZITHROMY SPARKLE Inactive FLAGYL 500 MG ORAL TABLET 1 tablet by mouth bid 04/13 FLAGYL 500 MG ORAL TABLET 515600 METRONIDAZOLE Inactive AZITHROMYCIN 250 MG ORAL TABLET 2 po qd x 1 day, then 1 po q d x 4 days AZITHROMYCIN 250 MG ORAL TABLET 344926 AZITHROMY SPARKLE Inactive AMOXICILLIN 500 MG ORAL CAPSULE 2 po BID x 10 days 201 01/15/27 AMOXICILLIN 500 MG ORAL CAPSULE 376160 AMOXICILLIN Inactive AMOXICILLIN 500 MG ORAL CAPSULE 2 po BID x 14 days for H. Pylori AMOXICILLIN 500 MG ORAL CAPSULE 640113 AMOXICILLIN Inactive CLARITHROMYCIN 500 MG ORAL TABLET 1 tab po BID x 14 days CLARITHROMYCIN 500 MG ORAL TABLET 639220 CLARITHROMYCIN Inacti ve FLAGYL 500 MG ORAL TABLET 1 tablet by mouth bid 08/29 FLAGYL 500 MG ORAL TABLET 104624 METRONIDAZOLE Inactive PROTONIX 40 MG ORAL TABLET DELAYED RELEASE 1 pill by m outh daily, for acid reflux PROTONIX 40 MG ORAL TABLET DELAYED RELEAS E 647796 PANTOPRAZOLE SODIUM Inactive Immunizations Vaccine Administration Date Value Standard Michael cription TB-PPD (tuberculin purified protein derivative), intra dermal administration Tubersol Vital Signs Date Name Value Unit Range Description blood pressure, diastolic 84 mm[Hg] BP mathew [...] ... - Chemistry sodium, serum 139 mmol/L 878-589 0132/11/28 carbon dioxide, venous blood 26.0 mmol/L 21.0-32 [...] 5.0-8.5 Encounters Code Encounter Date Provider Facility CPT-32675 [id number] Vst-Est Level III 09:37:41 CDT Dangelo Rangel MD [facility] CPT-85152 Level 4 Est. Patient 08:57:51 DIRECTOR SALES Checo Conklin MD [facility] CPT-62709 Level 3 Est. Patient 11:24:55 DIRECTOR SALES Efren almendarez [facility] CPT-25861 Level 3 Est. Patient 13:05:44 CDT Paul Hamlin MD [facility] CPT-46554 Level 3 Est. Patient 11:29:55 CDT Checo Conklin MD [facility] CPT-94685 Level 4 Est. Patient 11:08:12 DIRECTOR SALES Checo Conklin MD [facility] CPT-11561 Level 4 Est. Patient 16:06:48 DIRECTOR SALES Checo Conklin MD [facility] CPT-97165 Level 3 Est. Patient 09:11:49 CDT Efren almendarez [facility] CPT-27353 Level 2 Est. Patient 19:53:27 CDT Tanner hill MD [facility] CPT-41326 Level 3 Est. Patient 09:15:34 CDT Efren almendarez [facility] CPT-33089 Level 3 Est. Patient 11:28:51 DIRECTOR SALES Efren almendarez [facility] CPT-89629 Level 4 Est. Patient 13:55:46 DIRECTOR SALES Checo Conklin MD [facility] CPT-69625 Level 4 Est. Patient 17:10:53 CDT Checo Conklin MD [facility] CPT-38803 Level 3 Est. Patient 15:56:22 CDT Checo Conklin MD [facility] CPT-51314 Level 3 Est. Patient 15:29:07 CDT Checo Conklin MD [facility] CPT-25675 Level 3 Est. Patient 14:38:41 CDT Checo Conklin MD [facility] CPT-71451 Level 3 Est. Patient 15:22:03 DIRECTOR SALES Thomas reynolds DO [facility] CPT-26063 Level 3 Est. Patient 13:34:17 DIRECTOR SALES Checo Conklin MD [facility] CPT-05075 Level 3 Est. Patient 12:29:32 CDT Dangelo arroyo MD [facility] CPT-04501 Level 3 Est. Patient 16:53:02 CDT Checo Conklin MD [facility] CPT-34333 Level 3 Est. Patient 16:37:13 CDT Checo Conklin MD [facility] CPT-06971 Level 3 Est. Patient 16:16:59 CDT Paul Hamlin MD [facility] CPT-33966 Level 3 Est. Patient 14:20:13 CDT Dangelo arroyo MD [facility] CPT-89913 Level 4 Est. Patient 11:29:33 CDT Checo Conklin MD [facility] CPT-06434 Level 3 Est. Patient 17:08:31 CDT Checo Conklin MD [facility] CPT-07649 Level 3 Est. Patient 16:50:42 DIRECTOR SALES Checo Conklin MD [facility] CPT-92743 Level 4 Est. Patient 09:26:08 DIRECTOR SALES Checo Conklin MD [facility] CPT-23876 Level 3 Est. Patient 11:37:10 CDT Checo Conklin MD [facility] CPT-04617 Level 4 Est. Patient 14:07:38 CDT Checo Conklin MD [facility] CPT-04267 Level 3 Est. Patient 09:54:41 CDT Checo Conklin MD [facility] CPT-38599 Level 3 Est. Patient 11:10:54 CDT Paul Hamlin MD [facility] CPT-72371 Level 3 Est. Patient 14:16:56 DIRECTOR SALES Checo Conklin MD [facility] CPT-33814 Level 3 Est. Patient 11:04:11 DIRECTOR SALES Checo Conklin MD [facility] CPT-75512 Level 3 Est. Patient 17:09:26 CDT Dangelo arroyo MD [facility] CPT-68395 Level 3 Est. Patient 16:54:37 CDT Checo Conklin MD [facility] Procedures Code Procedure Name Date Entry Date Standard Desc ription CPT-34467 Wrist, right, comp 3V - XRAY USE ONLY 09:24:31 CDT CPT-73258 Abd compl w upright - XRAY USE ONLY 1 1:36:54 DIRECTOR SALES CPT-64778 UA w micro - LAB USE ONLY 17:06:46 CDT 2015 CPT-55540 [facility] Qual - LAB USE ONLY 17:06:46 CDT 05/06 CPT-39811 CMP - LAB USE ONLY 17:06:46 CDT CPT-39315 CBC with Diff - LAB USE ONLY 17:06:45 CDT 2 CPT-55817 Venipuncture Draw Fee 17:06:45 CDT CPT-LR Lesion Removal 19:53:27 CDT CPT-OV Office Visit 11:31:28 CDT CPT-85602 Tubersol 09:39:29 CDT CPT-J2550 Phenergan 25 mg (Promethazine) 13:59:02 DIRECTOR SALES CPT-J1885 Toradol 60 mg (Ketorolac) 13:59:02 DIRECTOR SALES 2012
--- OUTSIDE RECORDS SUMMARY | 2019-09-29 01:33 | XMS REPORT | Clinical Summary ---
Author Author Admin, Bethany Gonzales Organization [employer] Address Unknown Phone Unavailable Allergies, Adverse Reactions, [...] MD Tension headache PHARYNGITIS 462 Resolved Checo Coknlin MD Acute pharyngitis TOBACCO ABUSE 305.1 Inactive [...] TABS 1.5 po qd PAROX ETINE HCL 45318149204 Active Checo Conklin MD Active FLUTICASONE PROPIONATE 50 MCG/ACT NASAL SUSP 2 sprays/ nostril qd PRN Congestion/Allergies FLUTICASONE PROPIONATE 7380600807 5 No Longer Active Checo Conklin MD Active AMOXICILLIN 500 MG ORAL CAPS 2 po BID x 10 days 09/12 AMOXICILLIN 26836666687 No Longer Active Checo Conklin MD Activ e MIRALAX ORAL POWD 8.5 to 17g po qd PRN Constipation POLYETHYLENE GLYCOL 3350 57343804504 Active Checo Conklin MD Active CLARITIN 10 MG TAB 1 tablet by mouth daily as needed for allergi es LORATADINE 05110089362 No Longer Active Checo Conklin MD Active BACTRIM DS 800-160 MG TAB 1 tab by mouth twice daily 2 TRIMETHOPRIM-SULFAMETHOXAZOLE 42152375947 No Longer Active Tanner Carrillo MD Active DIFLUCAN 150 MG TAB 1 tablet by mouth qod FLUCO NAZOLE 34413210045 No Longer Active Efren Medel APRN Active AZITHROMYCIN 250 MG TABS 2 po qd x 1 day, then 1 po qd x 4 days AZITHROMYCIN 09268028196 No Longer Active Efren Medel APRN Active FLAGYL 500 MG TAB 1 tablet by mouth bid METRONI DAZOLE 07501951769 No Longer Active Checo Conklin MD Active FOCALIN XR 10 MG ORAL [id number] 1 po q a.m. DEX METHYLPHENIDATE HCL 32609369142 Active Checo Conklin MD Active MAGNESIUM CITRATE 1.745 GM/30ML ORAL SOLN 150ml po BID PRN C onstipation MAGNESIUM CITRATE 95607041480 No Longer Active Checo Conklin MD Active BACTROBAN 2 % CREAM Apply to affected area BID for up to 10 days MUPIROCIN CALCIUM 43994375154 No Longer Active Checo Conklin MD Active HYDROCODONE-ACETAMINOPHEN 5-325 MG TABS 1 tab by mouth every 6 hours as needed HYDROCODONE-ACETAMINOPHEN 02889883748 No Longer Activ e Checo Conklin MD Active IBUPROFEN 800 MG TABS 1 tab every 8 hours with food 20 31/03/21 IBUPROFEN 09419394755 No Longer Active Checo Conklin MD Activ e DIFLUCAN 150 MG TAB 1 tablet by mouth if needed, hold until symptoms start FLUCONAZOLE 06304760818 No Longer Active Checo Ortiz MD Active BACTRIM DS 800-160 MG TAB 1 tab by mouth twice daily 2 TRIMETHOPRIM-SULFAMETHOXAZOLE 26195543992 No Longer Active Corry leong LPN Active HYDROCODONE-ACETAMINOPHEN 5-325 MG TABS 0.5 to 1 tab b y mouth every 6 hours as needed HYDROCODONE-ACETAMINOPHEN 43406400328 No Longer Active Checo Conklin MD Active ONDANSETRON [address] one tablet on tongue and allow to dissolve every 6 hours as needed for vomitting ONDANSETRO N 61401959638 No Longer Active Checo Conklin MD Active COMPRO 25 MG RECTAL SUPP insert or apply one supposit ory rectally as directed every 12 hours as needed for nausea PROCHLORPERA ZINE 90689287673 No Longer Active Checo Conklin MD Active SUMATRIPTAN SUCCINATE 100 MG ORAL TABS Take one PRN for migrane SUMATRIPTAN SUCCINATE 46449444320 No Longer Active Checo Conklin MD Active TRAVEL SICKNESS 25 MG ORAL CHEW chew and swallow one t ablet every 6 hours as needed MECLIZINE HCL 55602531767 No Longer Active Joe Conklin MD Active BUPROPION HCL ER (SR) 100 MG ORAL [id number] take one t ablet by mouth one time daily for one week then take 1 two times daily BUPROPION HCL 06498435211 No Longer Active Checo Conklin MD Activ e TERBINAFINE HCL 250 MG ORAL TABS take one table PO one time abran y TERBINAFINE HCL 22468598828 No Longer Active Checo Conklin MD Active METOCLOPRAMIDE HCL 10 MG ORAL TABS take one PO tid PRN nausea 20 29/12/14 METOCLOPRAMIDE HCL 80268135229 No Longer Active Checo Conklin MD Active DICLOFENAC SODIUM 75 MG TBEC 1 tablet by mouth twice daily P RN Knee pain DICLOFENAC SODIUM 00737102688 No Longer Active Checo Conklin MD Active LAMISIL 250 MG TAB 1 po qd TERBINAFINE HCL 548 44497175 No Longer Active Checo Conklin MD Active REGLAN 10 MG TAB 1 po TID PRN Nausea METOCLOPRA MIDE HCL 69289507143 No Longer Active Checo Conklin MD Active CELEXA 20 MG TABS 1 tablet by mouth daily CITALOPRAM HYDROBROMIDE 28151977716 No Longer Active Checo Conklin MD Activ e AZITHROMYCIN 250 MG TABS 2 po qd x 1 day, then 1 po qd x 4 days AZITHROMYCIN 80524058733 No Longer Active Checo Conklin MD Active HYDROCODONE-ACETAMINOPHEN 5-325 MG TABS 1 po q 6hr PRN Pain 2013 HYDROCODONE-ACETAMINOPHEN 83412400808 No Longer Active Lenora Conklin MD Active PHENAZOPYRIDINE HCL 200 MG TABS take 1 tab po TID for bladder pa in PHENAZOPYRIDINE HCL 94399417638 No Longer Active Checo Joshua Active CIPRO 500 MG TAB 1 tablet by mouth twice daily CIPROFLOXACIN HCL 75112846501 No Longer Active Dangelo Rangel MD Active HYDROCODONE-ACETAMINOPHEN 5-325 MG TABS 1/2 to 1 po q 4 hour s prn cough HYDROCODONE-ACETAMINOPHEN 40835530856 No Longer Activ e Dangelo Rangel MD Active BACTRIM DS 800-160 MG TABS 1 po BID x 7 days 0 SULFAMETHOXAZOLE-TRIMETHOPRIM 90001583543 No Longer Active Checo Conklin MD Active PREDNISONE 20 MG TAB 2 tabs daily for 3 days, 1 t ab daily for 3 days, 1/2 tab daily for 2 days PREDNISONE 99394094559 No Longer Active Checo Conklin MD Active TRIAMCINOLONE ACETONIDE 0.1 % OINT Apply to affected a reas TID for up to 2 weeks TRIAMCINOLONE ACETONIDE 24662250417 No Longer A ctive Checo Conklin MD Active CEFDINIR 300 MG CAPS by mouth twice a day CEFDI JAZZY 44610519777 No Longer Active Dangelo Rangel MD Active BUPROPION HCL (SMOKING DETER) 150 MG [id number] 1 a day for 1 week then 1 twice a day BUPROPION HCL (SMOKING DETER) 84137407961 No Lo nger Active Checo Conklin MD Active SIMVASTATIN 20 MG TABS 1 po qd SIMVASTATIN 6928902107 5 Active Checo Conklin MD Active CHANTIX STARTING MONTH KARTHIK 0.5 MG X 11 & 1 MG X 42 TAB S 0.5mg daily for 3 days, then 0.5mg BID for 4 days, then 1mg BID VARENICLINE TARTRATE 81646292558 No Longer Active Checo Conklin MD Activ e XANAX 0.5 MG TABS 1 po BID PRN anxiety ALPRAZOLAM 82187507388 Active Checo Conklin MD Active CONCERTA 18 MG CR-TABS 1 po q a.m. METHYLPHENID ATE HCL 37706388764 No Longer Active Checo Conklin MD Active AMBIEN 5 MG TAB 1 po qHS PRN Insomnia ZOLPIDEM TARTRATE 76411395070 Active Checo Conklin MD Active TRAZODONE HCL 100 MG TAB 0.5 to 1 po qHS PRN Insomnia TRAZODONE HCL 37975437874 No Longer Active Checo Conklin MD Acti ve FIORICET 325-50-40 MG TAB 1 tablet by mouth four times daily as needed [id number] 42949470447 No Longer Active Checo Conklin MD Active PHENERGAN CREAM* 25mg applied to wrist q6hr PRN Nausea PHENERGAN CREAM* No Longer Active Checo Conklin MD A ctive FLONASE 50 MCG/ACT SUSP 1 spray each nostril am and hs FLUTICASONE PROPIONATE 92129157405 No Longer Active Checo Conklin MD Activ e ANTIPYRINE-BENZOCAINE 5.4-1.4 % SOLN 1-2 drops in affected ear BENZOCAINE-ANTIPYRINE 19977187098 No Longer Active Checo Conklin MD Active CEFDINIR 300 MG CAPS 1 po bid CEFDINIR 72579736 120 No Longer Active Checo Conklin MD Active PREDNISONE 20 MG TAB 2 tabs daily for 3 days, 1 t ab daily for 3 days, 1/2 tab daily for 2 days PREDNISONE 73617532141 No Longer Active Aracelis Conklin MD Active AZITHROMYCIN 250 MG TABS 2 po qd x 1 day, then 1 po qd x 4 days AZITHROMYCIN 44104466082 No Longer Active Checo Conklin MD Active PREDNISONE 20 MG TAB 2 tabs daily for 3 days, 1 t ab daily for 3 days, 1/2 tab daily for 2 days PREDNISONE 54607541410 No Longer Active Checo Conklin MD Active ZITHROMAX Z-KARTHIK 250 MG TABS 2 today, then 1 daily for 4 days 201 09/18/28 AZITHROMYCIN 30533155064 No Longer Active Paul Hamlin MD Active FOCALIN XR 10 MG [id number] 1 po q a.m. D EXMETHYLPHENIDATE HCL 00136015297 No Longer Active Paul Hamlin MD Activ e PERCOCET 10-325 MG TABS 1 tablet every 6 hours as needed for pain OXYCODONE-ACETAMINOPHEN 68408717678 No Longer Active Paul Hamlin MD Active LORTAB 5 5-500 MG TABS 1/2 to 1 tablet by mouth flaquito ry 4 hours as needed for pain HYDROCODONE-ACETAMINOPHEN 03479381074 No Longer Active Checo Conklin MD Active FOCALIN XR 15 MG [id number] 1 po q a.m. D EXMETHYLPHENIDATE HCL 45085797216 No Longer Active Cehco Conklin MD Activ e ZOFRAN ODT 4 MG TBDP 1 po q6hr PRN Nausea ONDAN SETRON 22431648638 No Longer Active Checo Conklin MD Active PERCOCET 5-325 MG TABS 1 tablet by mouth every 6 hours as needed OXYCODONE-ACETAMINOPHEN 94197896660 No Longer Active Checo Conklin MD Active PYRIDIUM 200 MG TABS take 1 tab po TID prn urinary pain. 0 PHENAZOPYRIDINE HCL 80554440824 No Longer Active Checo Conklin MD Active FLUCONAZOLE 150 MG TABS take 1 tab po qday once 04/06 FLUCONAZOLE 91650597987 No Longer Active Dangelo Rangel MD Acti ve CIPRO 500 MG TAB 1 tablet by mouth twice daily CIPROFLOXACIN HCL 27328888615 No Longer Active Dangelo Rangel MD Active PYRIDIUM 200 MG TABS take 1 tab po TID prn urinary pain. 0 PYRIDIUM 200 MG TABS 0327783 PHENAZOPYRIDINE HCL Inactive PERCOCET 5-325 MG TABS 1 tablet by mouth every 6 hours as needed PERCOCET 5-325 MG TABS 2302208 OXYCODONE-ACETAMINOPHEN I nactive ZOFRAN ODT 4 MG TBDP 1 po q6hr PRN Nausea ZOFRAN ODT 4 MG TBDP 668859 ONDANSETRON Inactive FOCALIN XR 15 MG [id number] 1 po q a.m. F OCALIN XR 15 MG [id number] DEXMETHYLPHENIDATE HCL Inactive LORTAB 5 5-500 MG TABS 1/2 to 1 tablet by mouth flaquito ry 4 hours as needed for pain LORTAB 5 5-500 MG TABS HYDROCODONE-A CETAMINOPHEN Inactive PERCOCET 10-325 MG TABS 1 tablet every 6 hours as needed for pain PERCOCET 10-325 MG TABS 0861775 OXYCODONE-ACETAMINOPHEN Inactive FOCALIN XR 10 MG [id number] 1 po q a.m. F OCALIN XR 10 MG [id number] DEXMETHYLPHENIDATE HCL Inactive CEFDINIR 300 MG CAPS 1 po bid CEFDINIR 300 MG CAPS 20 0346 CEFDINIR Inactive ANTIPYRINE-BENZOCAINE 5.4-1.4 % SOLN 1-2 drops in affected ear ANTIPYRINE-BENZOCAINE 5.4-1.4 % SOLN BENZOCAINE-ANTIPYRINE I nactive FLONASE 50 MCG/ACT SUSP 1 spray each nostril am and hs FLONASE 50 MCG/ACT SUSP 2862211 FLUTICASONE PROPIONATE Inactive PHENERGAN CREAM* 25mg applied to wrist q6hr PRN Nausea PHENERGAN CREAM* Inactive FIORICET 325-50-40 MG TAB 1 tablet by mouth four times daily as needed FIORICET 325-50-40 MG TAB ACETAMINOPHEN-C AFF-BUTALBITAL Inactive TRAZODONE HCL 100 MG TAB 0.5 to 1 po qHS PRN Insomnia TRAZODONE HCL 100 MG TAB 149006 TRAZODONE HCL Inactive CONCERTA 18 MG CR-TABS [...] s prn cough HYDROCODONE-ACETAMINOPHEN 5-325 MG TABS 446717 HYDROCODONE-ACETAMINOPHEN Inactive PHENAZOPYRIDINE HCL 200 MG TABS take 1 tab po TID for bladder pa in PHENAZOPYRIDINE HCL 200 MG TABS 8519703 PHENAZOPYRIDINE HCL Inactive HYDROCODONE-ACETAMINOPHEN 5-325 MG TABS 1 po q 6hr PRN Pain 2013 HYDROCODONE-ACETAMINOPHEN 5-325 MG TABS 631043 HYDROCODONE-ACETAMINOPHEN Inactive CELEXA 20 MG TABS 1 tablet by mouth daily CELEXA 20 MG TABS 239746 CITALOPRAM HYDROBROMIDE Inactive REGLAN 10 MG TAB 1 po TID PRN Nausea REGLAN 10 MG TAB 264362 METOCLOPRAMIDE HCL Inactive LAMISIL 250 MG TAB 1 po qd LAMISIL 250 MG TAB 416393 TERBINAFINE HCL Inactive DICLOFENAC SODIUM 75 MG TBEC 1 tablet by mouth twice daily P RN Knee pain DICLOFENAC SODIUM 75 MG TBEC 284462 DICLOFENAC S ODIUM Inactive METOCLOPRAMIDE HCL 10 MG ORAL TABS take one PO tid PRN nausea 20 29/12/14 METOCLOPRAMIDE HCL 10 MG ORAL TABS 711365 METOCLOPRAMID E HCL Inactive TERBINAFINE HCL 250 MG ORAL TABS take one table PO one time abran y TERBINAFINE HCL 250 MG ORAL TABS 861838 TERBINAFINE HCL Inactive BUPROPION HCL ER (SR) 100 MG ORAL [id number] take one t ablet by mouth one time daily for one week then take 1 two times daily BUPROPION HCL ER (SR) 100 MG ORAL [id number] BUPROPION HCL Inacti ve TRAVEL SICKNESS 25 MG ORAL CHEW chew and swallow one t ablet every 6 hours as needed TRAVEL SICKNESS 25 MG ORAL CHEW 808429 MECLIZINE HCL Inactive SUMATRIPTAN SUCCINATE 100 MG ORAL TABS Take one PRN for migrane SUMATRIPTAN SUCCINATE 100 MG ORAL TABS 628903 SUMATRIPT AN SUCCINATE Inactive COMPRO 25 MG RECTAL SUPP insert or apply one supposit ory rectally as directed every 12 hours as needed for nausea COMP RO 25 MG RECTAL SUPP 693134 PROCHLORPERAZINE Inactive ONDANSETRON [address] one tablet on tongue and allow to dissolve every 6 hours as needed for vomitting ON DANSETRON 8 MG ORAL TBDP 998254 ONDANSETRON Inactive HYDROCODONE-ACETAMINOPHEN 5-325 MG TABS 0.5 to 1 tab b y mouth every 6 hours as needed HYDROCODONE-ACETAMINOPHEN 5-325 MG TABS 8 35782 HYDROCODONE-ACETAMINOPHEN Inactive BACTRIM DS 800-160 MG TAB 1 tab by mouth twice daily 2 BACTRIM DS 800-160 MG TAB 548719 TRIMETHOPRIM-SULFAMETHOXAZOLE Inac tive DIFLUCAN 150 MG TAB 1 tablet by mouth if needed, hold until symptoms start DIFLUCAN 150 MG TAB 19760325 FLUCONAZOLE Inactive IBUPROFEN 800 MG TABS 1 tab every 8 hours with food 31/03/21 IBUPROFEN 800 MG TABS 827144 IBUPROFEN Inactive HYDROCODONE-ACETAMINOPHEN 5-325 MG TABS 1 tab by mouth every 6 hours as needed HYDROCODONE-ACETAMINOPHEN 5-325 MG TABS 112277 HYDROCODONE-ACETAMINOPHEN Inactive BACTROBAN 2 % CREAM Apply to affected area BID for up to 10 days BACTROBAN 2 % CREAM 180855 MUPIROCIN CALCIUM Inactive MAGNESIUM CITRATE 1.745 GM/30ML ORAL SOLN 150ml po BID PRN C onstipation MAGNESIUM CITRATE 1.745 GM/30ML ORAL SOLN 734544 0 MAGNESIUM CITRATE Inactive DIFLUCAN 150 MG TAB 1 tablet by mouth qod DIFLUCAN 150 MG TAB 522807 FLUCONAZOLE Inactive BACTRIM DS 800-160 MG TAB 1 tab by mouth twice daily 2 BACTRIM DS 800-160 MG TAB 806222 TRIMETHOPRIM-SULFAMETHOXAZOLE Inac tive CLARITIN 10 MG TAB 1 tablet by mouth daily as needed for allergi es CLARITIN 10 MG TAB 147552 LORATADINE Inactive FLUTICASONE PROPIONATE 50 MCG/ACT NASAL SUSP 2 sprays/ nostril qd PRN Congestion/Allergies FLUTICASONE PROPION ATE 50 MCG/ACT NASAL SUSP 5407471 FLUTICASONE PROPIONATE Inactive CIPRO 500 MG TAB 1 tablet by mouth twice daily CIPRO 500 MG TAB 836105 CIPROFLOXACIN HCL Inactive FLUCONAZOLE 150 MG TABS take 1 tab po qday once 04/06 FLUCONAZOLE 150 MG TABS 076215 FLUCONAZOLE Inactive ZITHROMAX Z-KARTHIK 250 MG TABS 2 today, then 1 daily for 4 days 201 09/18/28 ZITHROMAX Z-KARTHIK 250 MG TABS 0325505 AZITHROMYCIN Inac tive PREDNISONE 20 MG TAB 2 tabs daily for 3 days, 1 t ab daily for 3 days, /2 tab daily for 2 days PREDNISONE 20 MG TAB 893392 PREDNISON E Inactive AZITHROMYCIN 250 MG TABS 2 po qd x 1 day, then 1 po qd x 4 days AZITHROMYCIN 250 MG TABS 0288371 AZITHROMYCIN Inactiv e PREDNISONE 20 MG TAB 2 tabs daily for 3 days, 1 t ab daily for 3 days, 1/2 tab daily for 2 days PREDNISONE 20 MG TAB 750791 PREDNISON E Inactive CEFDINIR 300 MG CAPS by mouth twice a day CEFDINIR 300 MG CAPS 193536 CEFDINIR Inactive TRIAMCINOLONE ACETONIDE 0.1 % OINT Apply to affected a reas TID for up to 2 weeks TRIAMCINOLONE ACETONIDE 0.1 % OINT 733269 6 TRIAMCINOLONE ACETONIDE Inactive PREDNISONE 20 MG TAB 2 tabs daily for 3 days, 1 t ab daily for 3 days, 1/2 tab daily for 2 days PREDNISONE 20 MG TAB 659852 PREDNISON E Inactive BACTRIM DS 800-160 MG TABS 1 po BID x 7 days 0 BACTRIM DS 800-160 MG TABS 843377 SULFAMETHOXAZOLE-TRIMETHOPRIM Inactive CIPRO 500 MG TAB 1 tablet by mouth twice daily CIPRO 500 MG TAB 578186 CIPROFLOXACIN HCL Inactive AZITHROMYCIN 250 MG TABS 2 po qd x 1 day, then 1 po qd x 4 days AZITHROMYCIN 250 MG TABS 1763046 AZITHROMYCIN Inactiv e FLAGYL 500 MG TAB 1 tablet by mouth bid FLAGYL 500 MG TAB 888919 METRONIDAZOLE Inactive AZITHROMYCIN 250 MG TABS 2 po qd x 1 day, then 1 po qd x 4 days AZITHROMYCIN 250 MG TABS 2528886 AZITHROMYCIN Inactiv e AMOXICILLIN 500 MG ORAL CAPS 2 po BID x 10 days 09/12 AMOXICILLIN 500 MG ORAL CAPS 123916 AMOXICILLIN Inactive Immunizations Vaccine Administration Date Value [...] Report: CBC W/DIFF, Comp. Metabolic Panel, Qual [facility] - Chemistry sodium, serum 139 mmol/L 219-758 9302/10/21 carbon dioxide, venous blood 33.5 mmol/L 21.0-32 [...] Report: CBC W/DIFF, Comp. Metabolic Panel, Qual [facility] [place] - Hematology erythrocyte (RBC) count 4.53 10^6/MM^3 [...] PANEL - Chemistry cholesterol, serum 192 mg/dL 294-059 0724/02/20 HDL cholesterol, serum 31 mg/dL > OR [...] 11 .0-15.0 platelet count 218 THOUSAND/UL 10*3/mm3 744-362 1575/02/20 mean platelet volume 9.7 fL 7.5-12.5 Lab Report: Chlamydia/GC APTIMA/57801 - Lab chlamydia DNA probe NOT DETECTED NOT DETECTED Lab Report: Chlamydia/GC APTIMA/50171 - Microbiology Neisseria gonorrhoeae DNA probe NOT [...] Negative Negati ve bilirubin, urine Negative Negative glucose, urine, semiquantitative Negative Neg ative appearance, urine Clear Clear specific gravity, urine >=1.030 1.000-1.030 pH, urine, semiquantitative 5.5 5.0-8.5 Encounters Code Encounter Date Provider Facility CPT-55918 Level 3 Est. Patient 11:29:55 CDT Checo Conklin MD [facility] CPT-17511 Level 4 Est. Patient 11:08:12 [employer]ICAL [employer] D SALES Checo Conklin MD [facility] CPT-28440 Level 4 Est. Patient 16:06:48 MEDICAL I D SALES Checo Conklin MD [facility] CPT-74502 Level 3 Est. Patient 09:11:49 CDT Efren almendarez [facility] [place] CPT-37366 Level 2 Est. Patient 19:53:27 CDT Tanner hill MD [facility] CPT-19194 Level 3 Est. Patient 09:15:34 CDT Efren almendarez [facility] [place] CPT-26697 Level 3 Est. Patient 11:28:51 MEDICAL I D SALES Efren almendarez [facility] CPT-02186 Level 4 Est. Patient 13:55:46 MEDICAL I D SALES Checo Conklin MD [facility] CPT-72419 Level 4 Est. Patient 17:10:53 CDT Checo Conklin MD [facility] CPT-69113 Level 3 Est. Patient 15:56:22 CDT Checo Conklin MD [facility] CPT-87711 Level 3 Est. Patient 15:29:07 CDT Checo Conklin MD [facility] CPT-63356 Level 3 Est. Patient 14:38:41 CDT Checo Conklin MD [facility] CPT-27862 Level 3 Est. Patient 15:22:03 MEDICAL I D SALES Thomas reynolds DO [facility] CPT-57327 Level 3 Est. Patient 13:34:17 MEDICAL I D SALES Checo Conklin MD [facility] CPT-92979 Level 3 Est. Patient 12:29:32 CDT Dangelo arroyo MD [facility] CPT-37239 Level 3 Est. Patient 16:53:02 CDT Checo Conklin MD [facility] CPT-45268 Level 3 Est. Patient 16:37:13 CDT Checo Conklin MD [facility] CPT-34896 Level 3 Est. Patient 16:16:59 CDT Paul Hamlin MD [facility] CPT-51219 Level 3 Est. Patient 14:20:13 CDT Dangelo arroyo MD [facility] CPT-26714 Level 4 Est. Patient 11:29:33 CDT Checo Conklin MD [facility] CPT-62849 Level 3 Est. Patient 17:08:31 CDT Checo Conklin MD [facility] CPT-65867 Level 3 Est. Patient 16:50:42 MEDICAL I D SALES Checo Conklin MD [facility] CPT-75987 Level 4 Est. Patient 09:26:08 MEDICAL I D SALES Checo Conklin MD [facility] CPT-23846 Level 3 Est. Patient 11:37:10 CDT Checo Conklin MD [facility] CPT-80603 Level 4 Est. Patient 14:07:38 CDT Checo Conklin MD [facility] CPT-39040 Level 3 Est. Patient 09:54:41 CDT Checo Conklin MD [facility] CPT-35492 Level 3 Est. Patient 11:10:54 CDT Paul Hamlin MD [facility] CPT-29252 Level 3 Est. Patient 14:16:56 MEDICAL I D SALES Checo Conklin MD [facility] CPT-80098 Level 3 Est. Patient 11:04:11 MEDICAL I D SALES Checo Conklin MD [facility] CPT-46360 Level 3 Est. Patient 17:09:26 CDT Dangelo arroyo MD [facility] CPT-14417 Level 3 Est. Patient 16:54:37 CDT Checo Conklin MD [facility] Procedures Code Procedure Name Date Entry Date Standard Desc ription CPT-82100 UA w micro - LAB USE ONLY 17:06:46 CDT 2015 CPT-60574 [facility] Qual - LAB USE ONLY 17:06:46 CDT 05/06 CPT-76534 CMP - LAB USE ONLY 17:06:46 CDT CPT-90183 CBC with Diff - LAB USE ONLY 17:06:45 CDT 2 CPT-27913 Venipuncture Draw Fee 17:06:45 CDT CPT-LR Lesion Removal 19:53:27 CDT CPT-OV Office Visit 11:31:28 CDT CPT-59126 Tubersol 09:39:29 CDT CPT-J2550 Phenergan 25 mg (Promethazine) 13:59:02 MEDICAL I D SALES CPT-J1885 Toradol 60 mg (Ketorolac) 13:59:02 MEDICAL I D SALES 2012
--- OUTSIDE RECORDS SUMMARY | 2019-09-29 01:33 | XMS REPORT | Clinical Summary ---
Author Author Admin, Bethany Ayala [employer] Address Unknown Phone Unavailable Allergies, Adverse Reactions, [...] TABS 1.5 po qd PAROX ETINE HCL [id number] Active [place] Kerns Active FLUTICASONE PROPIONATE 50 MCG/ACT NASAL SUSP 2 sprays/ nostril qd PRN Congestion/Allergies FLUTICASONE PROPIONATE 5828756542 5 No Longer Active Checo Conklin MD Active AMOXICILLIN 500 MG ORAL CAPS 2 po BID x 10 days 09/12 AMOXICILLIN 77976979254 No Longer Active Checo Conklin MD Activ e MIRALAX ORAL POWD 8.5 to 17g po qd PRN Constipation POLYETHYLENE GLYCOL 3350 18387870408 Active Checo Conklin MD Active CLARITIN 10 MG TAB 1 tablet by mouth daily as needed for allergi es LORATADINE 47597270384 No Longer Active Checo Conklin MD Active BACTRIM DS 800-160 MG TAB 1 tab by mouth twice daily 2 TRIMETHOPRIM-SULFAMETHOXAZOLE 01599963635 No Longer Active Tanner Carrillo MD Active DIFLUCAN 150 MG TAB 1 tablet by mouth qod FLUCO NAZOLE 28400380783 No Longer Active Efren Medel APRN Active AZITHROMYCIN 250 MG TABS 2 po qd x 1 day, then 1 po qd x 4 days AZITHROMYCIN 31315634797 No Longer Active Efren Medel APRN Active FLAGYL 500 MG TAB 1 tablet by mouth bid METRONI DAZOLE 50287670211 No Longer Active Checo Conklin MD Active FOCALIN XR 10 MG ORAL [id number] 1 po q a.m. DEX METHYLPHENIDATE HCL 10109552018 Active Checo Conklin MD Active MAGNESIUM CITRATE 1.745 GM/30ML ORAL SOLN 150ml po BID PRN C onstipation MAGNESIUM CITRATE 87168424560 No Longer Active Checo Conklin MD Active BACTROBAN 2 % CREAM Apply to affected area BID for up to 10 days MUPIROCIN CALCIUM 04168901465 No Longer Active Checo Conklin MD Active HYDROCODONE-ACETAMINOPHEN 5-325 MG TABS 1 tab by mouth every 6 hours as needed HYDROCODONE-ACETAMINOPHEN 03669480365 No Longer Activ e Checo Conklin MD Active IBUPROFEN 800 MG TABS 1 tab every 8 hours with food 20 31/03/21 IBUPROFEN 47989850238 No Longer Active Checo Conklin MD Activ e DIFLUCAN 150 MG TAB 1 tablet by mouth if needed, hold until symptoms start FLUCONAZOLE 06911230633 No Longer Active Checo Ortiz MD Active BACTRIM DS 800-160 MG TAB 1 tab by mouth twice daily 2 TRIMETHOPRIM-SULFAMETHOXAZOLE 88846563246 No Longer Active Corry leong LPN Active HYDROCODONE-ACETAMINOPHEN 5-325 MG TABS 0.5 to 1 tab b y mouth every 6 hours as needed HYDROCODONE-ACETAMINOPHEN 94497810098 No Longer Active Checo Conklin MD Active ONDANSETRON [address] one tablet on tongue and allow to dissolve every 6 hours as needed for vomitting ONDANSETRO N 68714590539 No Longer Active Checo Conklin MD Active COMPRO 25 MG RECTAL SUPP insert or apply one supposit ory rectally as directed every 12 hours as needed for nausea PROCHLORPERA ZINE 89061848587 No Longer Active Checo Conklin MD Active SUMATRIPTAN SUCCINATE 100 MG ORAL TABS Take one PRN for migrane SUMATRIPTAN SUCCINATE 25160421457 No Longer Active Checo Conklin MD Active TRAVEL SICKNESS 25 MG ORAL CHEW chew and swallow one t ablet every 6 hours as needed MECLIZINE HCL 79378499798 No Longer Active Joe Conklin MD Active BUPROPION HCL ER (SR) 100 MG ORAL [id number] take one t ablet by mouth one time daily for one week then take 1 two times daily BUPROPION HCL 18579964783 No Longer Active Checo Conklin MD Activ e TERBINAFINE HCL 250 MG ORAL TABS take one table PO one time abran y TERBINAFINE HCL 64969223125 No Longer Active Checo Conklin MD Active METOCLOPRAMIDE HCL 10 MG ORAL TABS take one PO tid PRN nausea 20 29/12/14 METOCLOPRAMIDE HCL 59169966859 No Longer Active Checo Conklin MD Active DICLOFENAC SODIUM 75 MG TBEC 1 tablet by mouth twice daily P RN Knee pain DICLOFENAC SODIUM 23195295471 No Longer Active Checo Conklin MD Active LAMISIL 250 MG TAB 1 po qd TERBINAFINE HCL 548 98142661 No Longer Active Checo Conklin MD Active REGLAN 10 MG TAB 1 po TID PRN Nausea METOCLOPRA MIDE HCL 04315905340 No Longer Active Checo Conklin MD Active CELEXA 20 MG TABS 1 tablet by mouth daily CITALOPRAM HYDROBROMIDE 01362655906 No Longer Active Checo Conklin MD Activ e AZITHROMYCIN 250 MG TABS 2 po qd x 1 day, then 1 po qd x 4 days AZITHROMYCIN 80162989442 No Longer Active Checo Conklin MD Active HYDROCODONE-ACETAMINOPHEN 5-325 MG TABS 1 po q 6hr PRN Pain 2013 HYDROCODONE-ACETAMINOPHEN 64355721347 No Longer Active Lenora Conklin MD Active PHENAZOPYRIDINE HCL 200 MG TABS take 1 tab po TID for bladder pa in PHENAZOPYRIDINE HCL 66739730095 No Longer Active Checo Joshua Active CIPRO 500 MG TAB 1 tablet by mouth twice daily CIPROFLOXACIN HCL 15717134950 No Longer Active Dangelo Rangel MD Active HYDROCODONE-ACETAMINOPHEN 5-325 MG TABS 1/2 to 1 po q 4 hour s prn cough HYDROCODONE-ACETAMINOPHEN 88799820539 No Longer Activ e Dangelo Rangel MD Active BACTRIM DS 800-160 MG TABS 1 po BID x 7 days 0 SULFAMETHOXAZOLE-TRIMETHOPRIM 69207678624 No Longer Active Checo Conklin MD Active PREDNISONE 20 MG TAB 2 tabs daily for 3 days, 1 t ab daily for 3 days, 1/2 tab daily for 2 days PREDNISONE 24332138151 No Longer Active Checo Conklin MD Active TRIAMCINOLONE ACETONIDE 0.1 % OINT Apply to affected a reas TID for up to 2 weeks TRIAMCINOLONE ACETONIDE 68452131704 No Longer A ctive Checo Conklin MD Active CEFDINIR 300 MG CAPS by mouth twice a day CEFDI JAZZY 73759153969 No Longer Active Dangelo Rangel MD Active BUPROPION HCL (SMOKING DETER) 150 MG [id number] 1 a day for 1 week then 1 twice a day BUPROPION HCL (SMOKING DETER) 88798630690 No Lo nger Active Checo Conklin MD Active SIMVASTATIN 20 MG TABS 1 po qd SIMVASTATIN 9541864433 5 Active Checo Conklin MD Active CHANTIX STARTING MONTH KARTHIK 0.5 MG X 11 & 1 MG X 42 TAB S 0.5mg daily for 3 days, then 0.5mg BID for 4 days, then 1mg BID VARENICLINE TARTRATE 59711288056 No Longer Active Checo Conklin MD Activ e XANAX 0.5 MG TABS 1 po BID PRN anxiety ALPRAZOLAM 68627432538 Active Checo Conklin MD Active CONCERTA 18 MG CR-TABS 1 po q a.m. METHYLPHENID ATE HCL 37835760811 No Longer Active Checo Conklin MD Active AMBIEN 5 MG TAB 1 po qHS PRN Insomnia ZOLPIDEM TARTRATE 03104961996 Active Checo Conklin MD Active TRAZODONE HCL 100 MG TAB 0.5 to 1 po qHS PRN Insomnia TRAZODONE HCL 88663963569 No Longer Active Checo Conklin MD Acti ve FIORICET 325-50-40 MG TAB 1 tablet by mouth four times daily as needed [id number] 92983244088 No Longer Active Checo Conklin MD Active PHENERGAN CREAM* 25mg applied to wrist q6hr PRN Nausea PHENERGAN CREAM* No Longer Active Checo Conklin MD A ctive FLONASE 50 MCG/ACT SUSP 1 spray each nostril am and hs FLUTICASONE PROPIONATE 33660447042 No Longer Active Checo Conklin MD Activ e ANTIPYRINE-BENZOCAINE 5.4-1.4 % SOLN 1-2 drops in affected ear BENZOCAINE-ANTIPYRINE 69339386653 No Longer Active Checo Conklin MD Active CEFDINIR 300 MG CAPS 1 po bid CEFDINIR 72151131 120 No Longer Active Checo Conklin MD Active PREDNISONE 20 MG TAB 2 tabs daily for 3 days, 1 t ab daily for 3 days, 1/2 tab daily for 2 days PREDNISONE 43035133348 No Longer Active Aracelis Conklin MD Active AZITHROMYCIN 250 MG TABS 2 po qd x 1 day, then 1 po qd x 4 days AZITHROMYCIN 30982388615 No Longer Active Checo Conklin MD Active PREDNISONE 20 MG TAB 2 tabs daily for 3 days, 1 t ab daily for 3 days, 1/2 tab daily for 2 days PREDNISONE 23463447710 No Longer Active Checo Conklin MD Active ZITHROMAX Z-KARTHIK 250 MG TABS 2 today, then 1 daily for 4 days 201 09/18/28 AZITHROMYCIN 04990859800 No Longer Active Paul Hamlin MD Active FOCALIN XR 10 MG [id number] 1 po q a.m. D EXMETHYLPHENIDATE HCL 14081202911 No Longer Active Paul Hamlin MD Activ e PERCOCET 10-325 MG TABS 1 tablet every 6 hours as needed for pain OXYCODONE-ACETAMINOPHEN 84327417519 No Longer Active Paul Hamlin MD Active LORTAB 5 5-500 MG TABS 1/2 to 1 tablet by mouth flaquito ry 4 hours as needed for pain HYDROCODONE-ACETAMINOPHEN 46629522165 No Longer Active Checo Conklin MD Active FOCALIN XR 15 MG [id number] 1 po q a.m. D EXMETHYLPHENIDATE HCL 23700601033 No Longer Active Checo Conklin MD Activ e ZOFRAN ODT 4 MG TBDP 1 po q6hr PRN Nausea ONDAN SETRON 79928031918 No Longer Active Checo Conklin MD Active PERCOCET 5-325 MG TABS 1 tablet by mouth every 6 hours as needed OXYCODONE-ACETAMINOPHEN 92226931449 No Longer Active Checo Conklin MD Active PYRIDIUM 200 MG TABS take 1 tab po TID prn urinary pain. 0 PHENAZOPYRIDINE HCL 79341887773 No Longer Active Checo Conklin MD Active FLUCONAZOLE 150 MG TABS take 1 tab po qday once 04/06 FLUCONAZOLE 61422717331 No Longer Active Dangelo Rangel MD Acti ve CIPRO 500 MG TAB 1 tablet by mouth twice daily CIPROFLOXACIN HCL 69095425016 No Longer Active Dangelo Rangel MD Active PYRIDIUM 200 MG TABS take 1 tab po TID prn urinary pain. 0 PYRIDIUM 200 MG TABS 4541886 PHENAZOPYRIDINE HCL Inactive PERCOCET 5-325 MG TABS 1 tablet by mouth every 6 hours as needed PERCOCET 5-325 MG TABS 5382653 OXYCODONE-ACETAMINOPHEN I nactive ZOFRAN ODT 4 MG TBDP 1 po q6hr PRN Nausea ZOFRAN ODT 4 MG TBDP 919215 ONDANSETRON Inactive FOCALIN XR 15 MG [id number] 1 po q a.m. F OCALIN XR 15 MG [id number] DEXMETHYLPHENIDATE HCL Inactive LORTAB 5 5-500 MG TABS 1/2 to 1 tablet by mouth flaquito ry 4 hours as needed for pain LORTAB 5 5-500 MG TABS HYDROCODONE-A CETAMINOPHEN Inactive PERCOCET 10-325 MG TABS 1 tablet every 6 hours as needed for pain PERCOCET 10-325 MG TABS 6837704 OXYCODONE-ACETAMINOPHEN Inactive FOCALIN XR 10 MG [id number] 1 po q a.m. F OCALIN XR 10 MG [id number] DEXMETHYLPHENIDATE HCL Inactive CEFDINIR 300 MG CAPS 1 po bid CEFDINIR 300 MG CAPS 20 0346 CEFDINIR Inactive ANTIPYRINE-BENZOCAINE 5.4-1.4 % SOLN 1-2 drops in affected ear ANTIPYRINE-BENZOCAINE 5.4-1.4 % SOLN BENZOCAINE-ANTIPYRINE I nactive FLONASE 50 MCG/ACT SUSP 1 spray each nostril am and hs FLONASE 50 MCG/ACT SUSP 4177901 FLUTICASONE PROPIONATE Inactive PHENERGAN CREAM* 25mg applied to wrist q6hr PRN Nausea PHENERGAN CREAM* Inactive FIORICET 325-50-40 MG TAB 1 tablet by mouth four times daily as needed FIORICET 325-50-40 MG TAB ACETAMINOPHEN-C AFF-BUTALBITAL Inactive TRAZODONE HCL 100 MG TAB 0.5 to 1 po qHS PRN Insomnia TRAZODONE HCL 100 MG TAB 107595 TRAZODONE HCL Inactive CONCERTA 18 MG CR-TABS [...] s prn cough HYDROCODONE-ACETAMINOPHEN 5-325 MG TABS 436716 HYDROCODONE-ACETAMINOPHEN Inactive PHENAZOPYRIDINE HCL 200 MG TABS take 1 tab po TID for bladder pa in PHENAZOPYRIDINE HCL 200 MG TABS 3075467 PHENAZOPYRIDINE HCL Inactive HYDROCODONE-ACETAMINOPHEN 5-325 MG TABS 1 po q 6hr PRN Pain 2013 HYDROCODONE-ACETAMINOPHEN 5-325 MG TABS 068847 HYDROCODONE-ACETAMINOPHEN Inactive CELEXA 20 MG TABS 1 tablet by mouth daily CELEXA 20 MG TABS 188701 CITALOPRAM HYDROBROMIDE Inactive REGLAN 10 MG TAB 1 po TID PRN Nausea REGLAN 10 MG TAB 152305 METOCLOPRAMIDE HCL Inactive LAMISIL 250 MG TAB 1 po qd LAMISIL 250 MG TAB 672912 TERBINAFINE HCL Inactive DICLOFENAC SODIUM 75 MG TBEC 1 tablet by mouth twice daily P RN Knee pain DICLOFENAC SODIUM 75 MG TBEC 575432 DICLOFENAC S ODIUM Inactive METOCLOPRAMIDE HCL 10 MG ORAL TABS take one PO tid PRN nausea 20 29/12/14 METOCLOPRAMIDE HCL 10 MG ORAL TABS 618135 METOCLOPRAMID E HCL Inactive TERBINAFINE HCL 250 MG ORAL TABS take one table PO one time abran y TERBINAFINE HCL 250 MG ORAL TABS 736026 TERBINAFINE HCL Inactive BUPROPION HCL ER (SR) 100 MG ORAL [id number] take one t ablet by mouth one time daily for one week then take 1 two times daily BUPROPION HCL ER (SR) 100 MG ORAL [id number] BUPROPION HCL Inacti ve TRAVEL SICKNESS 25 MG ORAL CHEW chew and swallow one t ablet every 6 hours as needed TRAVEL SICKNESS 25 MG ORAL CHEW 698580 MECLIZINE HCL Inactive SUMATRIPTAN SUCCINATE 100 MG ORAL TABS Take one PRN for migrane SUMATRIPTAN SUCCINATE 100 MG ORAL TABS 938168 SUMATRIPT AN SUCCINATE Inactive COMPRO 25 MG RECTAL SUPP insert or apply one supposit ory rectally as directed every 12 hours as needed for nausea COMP RO 25 MG RECTAL SUPP 251018 PROCHLORPERAZINE Inactive ONDANSETRON [address] one tablet on tongue and allow to dissolve every 6 hours as needed for vomitting ON DANSETRON 8 MG ORAL TBDP 930435 ONDANSETRON Inactive HYDROCODONE-ACETAMINOPHEN 5-325 MG TABS 0.5 to 1 tab b y mouth every 6 hours as needed HYDROCODONE-ACETAMINOPHEN 5-325 MG TABS 8 44111 HYDROCODONE-ACETAMINOPHEN Inactive BACTRIM DS 800-160 MG TAB 1 tab by mouth twice daily 2 BACTRIM DS 800-160 MG TAB 935537 TRIMETHOPRIM-SULFAMETHOXAZOLE Inac tive DIFLUCAN 150 MG TAB 1 tablet by mouth if needed, hold until symptoms start DIFLUCAN 150 MG TAB 19760325 FLUCONAZOLE Inactive IBUPROFEN 800 MG TABS 1 tab every 8 hours with food 31/03/21 IBUPROFEN 800 MG TABS 082372 IBUPROFEN Inactive HYDROCODONE-ACETAMINOPHEN 5-325 MG TABS 1 tab by mouth every 6 hours as needed HYDROCODONE-ACETAMINOPHEN 5-325 MG TABS 152989 HYDROCODONE-ACETAMINOPHEN Inactive BACTROBAN 2 % CREAM Apply to affected area BID for up to 10 days BACTROBAN 2 % CREAM 367644 MUPIROCIN CALCIUM Inactive MAGNESIUM CITRATE 1.745 GM/30ML ORAL SOLN 150ml po BID PRN C onstipation MAGNESIUM CITRATE 1.745 GM/30ML ORAL SOLN 000175 0 MAGNESIUM CITRATE Inactive DIFLUCAN 150 MG TAB 1 tablet by mouth qod DIFLUCAN 150 MG TAB 428829 FLUCONAZOLE Inactive BACTRIM DS 800-160 MG TAB 1 tab by mouth twice daily 2 BACTRIM DS 800-160 MG TAB 491457 TRIMETHOPRIM-SULFAMETHOXAZOLE Inac tive CLARITIN 10 MG TAB 1 tablet by mouth daily as needed for allergi es CLARITIN 10 MG TAB 982524 LORATADINE Inactive FLUTICASONE PROPIONATE 50 MCG/ACT NASAL SUSP 2 sprays/ nostril qd PRN Congestion/Allergies FLUTICASONE PROPION ATE 50 MCG/ACT NASAL SUSP 2321065 FLUTICASONE PROPIONATE Inactive CIPRO 500 MG TAB 1 tablet by mouth twice daily CIPRO 500 MG TAB 784479 CIPROFLOXACIN HCL Inactive FLUCONAZOLE 150 MG TABS take 1 tab po qday once 04/06 FLUCONAZOLE 150 MG TABS 768467 FLUCONAZOLE Inactive ZITHROMAX Z-KARTHIK 250 MG TABS 2 today, then 1 daily for 4 days 201 09/18/28 ZITHROMAX Z-KARTHIK 250 MG TABS 2676885 AZITHROMYCIN Inac tive PREDNISONE 20 MG TAB 2 tabs daily for 3 days, 1 t ab daily for 3 days, /2 tab daily for 2 days PREDNISONE 20 MG TAB 871573 PREDNISON E Inactive AZITHROMYCIN 250 MG TABS 2 po qd x 1 day, then 1 po qd x 4 days AZITHROMYCIN 250 MG TABS 3083861 AZITHROMYCIN Inactiv e PREDNISONE 20 MG TAB 2 tabs daily for 3 days, 1 t ab daily for 3 days, 1/2 tab daily for 2 days PREDNISONE 20 MG TAB 125319 PREDNISON E Inactive CEFDINIR 300 MG CAPS by mouth twice a day CEFDINIR 300 MG CAPS 362447 CEFDINIR Inactive TRIAMCINOLONE ACETONIDE 0.1 % OINT Apply to affected a reas TID for up to 2 weeks TRIAMCINOLONE ACETONIDE 0.1 % OINT 545106 6 TRIAMCINOLONE ACETONIDE Inactive PREDNISONE 20 MG TAB 2 tabs daily for 3 days, 1 t ab daily for 3 days, 1/2 tab daily for 2 days PREDNISONE 20 MG TAB 269737 PREDNISON E Inactive BACTRIM DS 800-160 MG TABS 1 po BID x 7 days 0 BACTRIM DS 800-160 MG TABS 659021 SULFAMETHOXAZOLE-TRIMETHOPRIM Inactive CIPRO 500 MG TAB 1 tablet by mouth twice daily CIPRO 500 MG TAB 826751 CIPROFLOXACIN HCL Inactive AZITHROMYCIN 250 MG TABS 2 po qd x 1 day, then 1 po qd x 4 days AZITHROMYCIN 250 MG TABS 7445171 AZITHROMYCIN Inactiv e FLAGYL 500 MG TAB 1 tablet by mouth bid FLAGYL 500 MG TAB 810844 METRONIDAZOLE Inactive AZITHROMYCIN 250 MG TABS 2 po qd x 1 day, then 1 po qd x 4 days AZITHROMYCIN 250 MG TABS 2814689 AZITHROMYCIN Inactiv e AMOXICILLIN 500 MG ORAL CAPS 2 po BID x 10 days 09/12 AMOXICILLIN 500 MG ORAL CAPS 514394 AMOXICILLIN Inactive Immunizations Vaccine Administration Date Value [...] Report: CBC W/DIFF, Comp. Metabolic Panel, Qual [facility] [place] - Chemistry sodium, serum 139 mmol/L 287-375 7397/10/21 carbon dioxide, venous blood 33.5 mmol/L 21.0-32 [...] Report: CBC W/DIFF, Comp. Metabolic Panel, Qual [facility] [place] - Hematology leukocyte count, blood 7.9 10^3/MM^3 [...] PANEL - Chemistry cholesterol, serum 192 mg/dL 233-322 3420/02/20 HDL cholesterol, serum 31 mg/dL > OR [...] 11 .0-15.0 platelet count 218 THOUSAND/UL 10*3/mm3 177-881 1692/02/20 mean platelet volume 9.7 fL 7.5-12.5 Lab Report: Chlamydia/GC APTIMA/[id number] - Lab chlamydia DNA probe NOT DETECTED NOT DETECTED Lab Report: Chlamydia/GC APTIMA/48710 - Microbiology Neisseria gonorrhoeae DNA probe NOT [...] 5.0-8.5 Encounters Code Encounter Date Provider Facility CPT-06218 Level 3 Est. Patient 11:29:55 CDT Checo Conklin MD [facility] CPT-13833 Level 4 Est. Patient 11:08:12 JAVA PROGRAMMING PROFESSOR Checo Conklin MD [facility] CPT-58999 Level 4 Est. Patient 16:06:48 JAVA PROGRAMMING PROFESSOR Checo Conklin MD [facility] CPT-03364 Level 3 Est. Patient 09:11:49 CDT Efren almendarez [facility] CPT-12898 Level 2 Est. Patient 19:53:27 CDT Tanner hill MD [facility] CPT-26426 Level 3 Est. Patient 09:15:34 CDT Efren almendarez [facility] CPT-02044 Level 3 Est. Patient 11:28:51 JAVA PROGRAMMING PROFESSOR Efren almendarez [facility] CPT-33115 Level 4 Est. Patient 13:55:46 JAVA PROGRAMMING PROFESSOR Checo Conklin MD [facility] CPT-11247 Level 4 Est. Patient 17:10:53 CDT Checo Conklin MD [facility] CPT-85567 Level 3 Est. Patient 15:56:22 CDT Checo Conklin MD [facility] CPT-51978 Level 3 Est. Patient 15:29:07 CDT Checo Conklin MD [facility] CPT-36194 Level 3 Est. Patient 14:38:41 CDT Checo Conklin MD [facility] CPT-43926 Level 3 Est. Patient 15:22:03 JAVA PROGRAMMING PROFESSOR Thomas reynolds DO [facility] CPT-74977 Level 3 Est. Patient 13:34:17 JAVA PROGRAMMING PROFESSOR Checo Conklin MD [facility] CPT-77159 Level 3 Est. Patient 12:29:32 CDT Dangelo arroyo MD [facility] CPT-63203 Level 3 Est. Patient 16:53:02 CDT Checo Conklin MD [facility] CPT-07867 Level 3 Est. Patient 16:37:13 CDT Checo Conklin MD [facility] CPT-69177 Level 3 Est. Patient 16:16:59 CDT Paul Hamlin MD [facility] CPT-11379 Level 3 Est. Patient 14:20:13 CDT Dangelo arroyo MD [facility] CPT-41424 Level 4 Est. Patient 11:29:33 CDT Checo Conklin MD [facility] CPT-51251 Level 3 Est. Patient 17:08:31 CDT Checo Conklin MD [facility] CPT-24895 Level 3 Est. Patient 16:50:42 JAVA PROGRAMMING PROFESSOR Checo Conklin MD [facility] CPT-35411 Level 4 Est. Patient 09:26:08 JAVA PROGRAMMING PROFESSOR Checo Conklin MD [facility] CPT-30719 Level 3 Est. Patient 11:37:10 CDT Checo Conklin MD [facility] CPT-83504 Level 4 Est. Patient 14:07:38 CDT Checo Conklin MD [facility] CPT-09406 Level 3 Est. Patient 09:54:41 CDT Checo Conklin MD [facility] CPT-96740 Level 3 Est. Patient 11:10:54 CDT Paul Hamlin MD [facility] CPT-62766 Level 3 Est. Patient 14:16:56 JAVA PROGRAMMING PROFESSOR Checo Conklin MD [facility] CPT-71994 Level 3 Est. Patient 11:04:11 JAVA PROGRAMMING PROFESSOR Checo Conklin MD [facility] CPT-41253 Level 3 Est. Patient 17:09:26 CDT Dangelo arroyo MD [facility] CPT-85136 Level 3 Est. Patient 16:54:37 CDT Checo Conklin MD [facility] Procedures Code Procedure Name Date Entry Date Standard Desc ription CPT-91612 UA w micro - LAB USE ONLY 17:06:46 CDT 2015 CPT-71159 BHCG Qual - LAB USE ONLY 17:06:46 CDT 05/06 CPT-43073 CMP - LAB USE ONLY 17:06:46 CDT CPT-76957 CBC with Diff - LAB USE ONLY 17:06:45 CDT 2 CPT-43402 Venipuncture Draw Fee 17:06:45 CDT CPT-LR Lesion Removal 19:53:27 CDT CPT-OV Office Visit 11:31:28 CDT CPT-15219 Tubersol 09:39:29 CDT CPT-J2550 Phenergan 25 mg (Promethazine) 13:59:02 JAVA PROGRAMMING PROFESSOR CPT-J1885 Toradol 60 mg (Ketorolac) 13:59:02 JAVA PROGRAMMING PROFESSOR 2012
--- OUTSIDE RECORDS SUMMARY | 2019-09-29 01:33 | XMS REPORT | Clinical Summary ---
Author Author Admin, Bethany Gonzales Organization [employer] Address Unknown Phone Unavailable Allergies, Adverse Reactions, [...] po BID x 10 days 09/12 AMOXICILLIN [id number] No Longer Active Checo Conklin MD Activ e PAROXETINE HCL 20 MG ORAL TABS 0.5 po qd 6 days, then 1 po qd 09/02 PAROXETINE HCL 76766778033 Active Checo Conklin MD Active FLUTICASONE PROPIONATE 50 MCG/ACT NASAL SUSP 2 sprays/ nostril qd PRN Congestion/Allergies FLUTICASONE PROPIONATE 02153510649 Ac tive Checo Conklin MD Active MIRALAX ORAL POWD 8.5 to 17g po qd PRN Constipation POLYETHYLENE GLYCOL 3350 16731368579 Active Checo Conklin MD Active CLARITIN 10 MG TAB 1 tablet by mouth daily as needed for allergi es LORATADINE 58886551938 No Longer Active Checo Conklin MD Active BACTRIM DS 800-160 MG TAB 1 tab by mouth twice daily 2 TRIMETHOPRIM-SULFAMETHOXAZOLE 19148749499 No Longer Active Tanner Carrillo MD Active DIFLUCAN 150 MG TAB 1 tablet by mouth qod FLUCO NAZOLE 44751478524 No Longer Active Efren Medel APRN Active AZITHROMYCIN 250 MG TABS 2 po qd x 1 day, then 1 po qd x 4 days AZITHROMYCIN 01091973912 No Longer Active Efren Medel APRN Active FLAGYL 500 MG TAB 1 tablet by mouth bid METRONI DAZOLE 11061527263 No Longer Active Checo Conklin MD Active FOCALIN XR 10 MG ORAL [id number] 1 po q a.m. DEX METHYLPHENIDATE HCL 07127484206 Active Checo Conklin MD Active MAGNESIUM CITRATE 1.745 GM/30ML ORAL SOLN 150ml po BID PRN C onstipation MAGNESIUM CITRATE 55223050543 No Longer Active Checo Conklin MD Active BACTROBAN 2 % CREAM Apply to affected area BID for up to 10 days MUPIROCIN CALCIUM 81275478653 No Longer Active Checo Conklin MD Active HYDROCODONE-ACETAMINOPHEN 5-325 MG TABS 1 tab by mouth every 6 hours as needed HYDROCODONE-ACETAMINOPHEN 88151572462 No Longer Activ e Checo Conklin MD Active IBUPROFEN 800 MG TABS 1 tab every 8 hours with food 31/03/21 IBUPROFEN 30185750821 No Longer Active Checo Conklin MD Activ e DIFLUCAN 150 MG TAB 1 tablet by mouth if needed, hold until symptoms start FLUCONAZOLE 57252210611 No Longer Active Checo Ortiz MD Active BACTRIM DS 800-160 MG TAB 1 tab by mouth twice daily 2 TRIMETHOPRIM-SULFAMETHOXAZOLE 35928962642 No Longer Active Corry leong LPN Active HYDROCODONE-ACETAMINOPHEN 5-325 MG TABS 0.5 to 1 tab b y mouth every 6 hours as needed HYDROCODONE-ACETAMINOPHEN 01912893314 No Longer Active Checo Conklin MD Active ONDANSETRON [address] one tablet on tongue and allow to dissolve every 6 hours as needed for vomitting ONDANSETRO N 46094123658 No Longer Active Checo Conklin MD Active COMPRO 25 MG RECTAL SUPP insert or apply one supposit ory rectally as directed every 12 hours as needed for nausea PROCHLORPERA ZINE 58304422612 No Longer Active Checo Conklin MD Active SUMATRIPTAN SUCCINATE 100 MG ORAL TABS Take one PRN for migrane SUMATRIPTAN SUCCINATE 52016509191 No Longer Active Checo Conklin MD Active TRAVEL SICKNESS 25 MG ORAL CHEW chew and swallow one t ablet every 6 hours as needed MECLIZINE HCL 87796477609 No Longer Active Joe Conklin MD Active BUPROPION HCL ER (SR) 100 MG ORAL [id number] take one t ablet by mouth one time daily for one week then take 1 two times daily BUPROPION HCL 78038453327 No Longer Active Checo Conklin MD Activ e TERBINAFINE HCL 250 MG ORAL TABS take one table PO one time abran y TERBINAFINE HCL 22236148050 No Longer Active Checo Conklin MD Active METOCLOPRAMIDE HCL 10 MG ORAL TABS take one PO tid PRN nausea 20 29/12/14 METOCLOPRAMIDE HCL 08347300123 No Longer Active Checo Conklin MD Active DICLOFENAC SODIUM 75 MG TBEC 1 tablet by mouth twice daily P RN Knee pain DICLOFENAC SODIUM 54903897772 No Longer Active Checo Conklin MD Active LAMISIL 250 MG TAB 1 po qd TERBINAFINE HCL 548 22246036 No Longer Active Checo Conklin MD Active REGLAN 10 MG TAB 1 po TID PRN Nausea METOCLOPRA MIDE HCL 30943104576 No Longer Active Checo Conklin MD Active CELEXA 20 MG TABS 1 tablet by mouth daily CITALOPRAM HYDROBROMIDE 69525954851 No Longer Active Checo Conklin MD Activ e AZITHROMYCIN 250 MG TABS 2 po qd x 1 day, then 1 po qd x 4 days AZITHROMYCIN 56911311916 No Longer Active Checo Conklin MD Active HYDROCODONE-ACETAMINOPHEN 5-325 MG TABS 1 po q 6hr PRN Pain 2013 HYDROCODONE-ACETAMINOPHEN 35910743633 No Longer Active Lenora Conklin MD Active PHENAZOPYRIDINE HCL 200 MG TABS take 1 tab po TID for bladder pa in PHENAZOPYRIDINE HCL 85863875477 No Longer Active Checo Joshua Active CIPRO 500 MG TAB 1 tablet by mouth twice daily CIPROFLOXACIN HCL 10707731476 No Longer Active Dangelo Rangel MD Active HYDROCODONE-ACETAMINOPHEN 5-325 MG TABS 1/2 to 1 po q 4 hour s prn cough HYDROCODONE-ACETAMINOPHEN 06326676245 No Longer Activ e Dangelo Rangel MD Active BACTRIM DS 800-160 MG TABS 1 po BID x 7 days 0 SULFAMETHOXAZOLE-TRIMETHOPRIM 82877284958 No Longer Active Checo Conklin MD Active PREDNISONE 20 MG TAB 2 tabs daily for 3 days, 1 t ab daily for 3 days, 1/2 tab daily for 2 days PREDNISONE 12574879604 No Longer Active Checo Conklin MD Active TRIAMCINOLONE ACETONIDE 0.1 % OINT Apply to affected a reas TID for up to 2 weeks TRIAMCINOLONE ACETONIDE 40336605528 No Longer A ctive Checo Conklin MD Active CEFDINIR 300 MG CAPS by mouth twice a day CEFDI JAZZY 69743355035 No Longer Active Dangelo Rangel MD Active BUPROPION HCL (SMOKING DETER) 150 MG [id number] 1 a day for 1 week then 1 twice a day BUPROPION HCL (SMOKING DETER) 86326092309 No Lo nger Active Checo Conklin MD Active SIMVASTATIN 20 MG TABS 1 po qd SIMVASTATIN 9830800453 5 Active Checo Conklin MD Active CHANTIX STARTING MONTH KARTHIK 0.5 MG X 11 & 1 MG X 42 TAB S 0.5mg daily for 3 days, then 0.5mg BID for 4 days, then 1mg BID VARENICLINE TARTRATE 55522199755 No Longer Active Checo Conklin MD Activ e XANAX 0.5 MG TABS 1 po BID PRN anxiety ALPRAZOLAM 96423658526 Active Checo Conklin MD Active CONCERTA 18 MG CR-TABS 1 po q a.m. METHYLPHENID ATE HCL 16803167005 No Longer Active Checo Conklin MD Active AMBIEN 5 MG TAB 1 po qHS PRN Insomnia ZOLPIDEM TARTRATE 36914491821 Active Checo Conklin MD Active TRAZODONE HCL 100 MG TAB 0.5 to 1 po qHS PRN Insomnia TRAZODONE HCL 67216739909 No Longer Active Checo Conklin MD Acti ve FIORICET 325-50-40 MG TAB 1 tablet by mouth four times daily as needed [id number] 83531722029 No Longer Active Checo Conklin MD Active PHENERGAN CREAM* 25mg applied to wrist q6hr PRN Nausea PHENERGAN CREAM* No Longer Active Checo Conklin MD A ctive FLONASE 50 MCG/ACT SUSP 1 spray each nostril am and hs FLUTICASONE PROPIONATE 54934556390 No Longer Active Checo Conklin MD Activ e ANTIPYRINE-BENZOCAINE 5.4-1.4 % SOLN 1-2 drops in affected ear BENZOCAINE-ANTIPYRINE 32845501907 No Longer Active Checo Conklin MD Active CEFDINIR 300 MG CAPS 1 po bid CEFDINIR 79814230 120 No Longer Active Checo Conklin MD Active PREDNISONE 20 MG TAB 2 tabs daily for 3 days, 1 t ab daily for 3 days, 1/2 tab daily for 2 days PREDNISONE 92796534843 No Longer Active Aracelis Conklin MD Active AZITHROMYCIN 250 MG TABS 2 po qd x 1 day, then 1 po qd x 4 days AZITHROMYCIN 13839841310 No Longer Active Checo Conklin MD Active PREDNISONE 20 MG TAB 2 tabs daily for 3 days, 1 t ab daily for 3 days, 1/2 tab daily for 2 days PREDNISONE 74660096343 No Longer Active Checo Conklin MD Active ZITHROMAX Z-KARTHIK 250 MG TABS 2 today, then 1 daily for 4 days 201 09/18/28 AZITHROMYCIN 79762529277 No Longer Active Paul Hamlin MD Active FOCALIN XR 10 MG [id number] 1 po q a.m. D EXMETHYLPHENIDATE HCL 97904770838 No Longer Active Paul Hamlin MD Activ e PERCOCET 10-325 MG TABS 1 tablet every 6 hours as needed for pain OXYCODONE-ACETAMINOPHEN 88232667327 No Longer Active Paul Hamlin MD Active LORTAB 5 5-500 MG TABS 1/2 to 1 tablet by mouth flaquito ry 4 hours as needed for pain HYDROCODONE-ACETAMINOPHEN 29591079973 No Longer Active Checo Conklin MD Active FOCALIN XR 15 MG [id number] 1 po q a.m. D EXMETHYLPHENIDATE HCL 73692387389 No Longer Active Checo Conklin MD Activ e ZOFRAN ODT 4 MG TBDP 1 po q6hr PRN Nausea ONDAN SETRON 31465286969 No Longer Active Checo Conklin MD Active PERCOCET 5-325 MG TABS 1 tablet by mouth every 6 hours as needed OXYCODONE-ACETAMINOPHEN 59695194803 No Longer Active Checo Conklin MD Active PYRIDIUM 200 MG TABS take 1 tab po TID prn urinary pain. 0 PHENAZOPYRIDINE HCL 74946506432 No Longer Active Checo Conklin MD Active FLUCONAZOLE 150 MG TABS take 1 tab po qday once 04/06 FLUCONAZOLE 18423979226 No Longer Active Dangelo Rangel MD Acti ve CIPRO 500 MG TAB 1 tablet by mouth twice daily CIPROFLOXACIN HCL 29719233035 No Longer Active Daneglo Rangel MD Active PYRIDIUM 200 MG TABS take 1 tab po TID prn urinary pain. 0 PYRIDIUM 200 MG TABS 5726811 PHENAZOPYRIDINE HCL Inactive PERCOCET 5-325 MG TABS 1 tablet by mouth every 6 hours as needed PERCOCET 5-325 MG TABS 3754625 OXYCODONE-ACETAMINOPHEN I nactive ZOFRAN ODT 4 MG TBDP 1 po q6hr PRN Nausea ZOFRAN ODT 4 MG TBDP 603477 ONDANSETRON Inactive FOCALIN XR 15 MG [id number] 1 po q a.m. F OCALIN XR 15 MG [id number] DEXMETHYLPHENIDATE HCL Inactive LORTAB 5 5-500 MG TABS 1/2 to 1 tablet by mouth flaquito ry 4 hours as needed for pain LORTAB 5 5-500 MG TABS HYDROCODONE-A CETAMINOPHEN Inactive PERCOCET 10-325 MG TABS 1 tablet every 6 hours as needed for pain PERCOCET 10-325 MG TABS 4692089 OXYCODONE-ACETAMINOPHEN Inactive FOCALIN XR 10 MG [id number] 1 po q a.m. F OCALIN XR 10 MG [id number] DEXMETHYLPHENIDATE HCL Inactive CEFDINIR 300 MG CAPS [...] PRN Insomnia TRAZODONE HCL 100 MG TAB 787640 TRAZODONE HCL Inactive CONCERTA 18 MG CR-TABS [...] s prn cough HYDROCODONE-ACETAMINOPHEN 5-325 MG TABS 354521 HYDROCODONE-ACETAMINOPHEN Inactive PHENAZOPYRIDINE HCL 200 MG TABS take 1 tab po TID for bladder pa in PHENAZOPYRIDINE HCL 200 MG TABS 4658907 PHENAZOPYRIDINE HCL Inactive HYDROCODONE-ACETAMINOPHEN 5-325 MG TABS 1 po q 6hr PRN Pain 2013 HYDROCODONE-ACETAMINOPHEN 5-325 MG TABS 634835 HYDROCODONE-ACETAMINOPHEN Inactive CELEXA 20 MG TABS 1 tablet by mouth daily CELEXA 20 MG TABS 449020 CITALOPRAM HYDROBROMIDE Inactive REGLAN 10 MG TAB 1 po TID PRN Nausea REGLAN 10 MG TAB 551841 METOCLOPRAMIDE HCL Inactive LAMISIL 250 MG TAB 1 po qd LAMISIL 250 MG TAB 559581 TERBINAFINE HCL Inactive DICLOFENAC SODIUM 75 MG TBEC 1 tablet by mouth twice daily P RN Knee pain DICLOFENAC SODIUM 75 MG TBEC 701190 DICLOFENAC S ODIUM Inactive METOCLOPRAMIDE HCL 10 MG ORAL TABS take one PO tid PRN nausea 20 29/12/14 METOCLOPRAMIDE HCL 10 MG ORAL TABS 006650 METOCLOPRAMID E HCL Inactive TERBINAFINE HCL 250 MG ORAL TABS take one table PO one time abran y TERBINAFINE HCL 250 MG ORAL TABS 932417 TERBINAFINE HCL Inactive BUPROPION HCL ER (SR) 100 MG ORAL [id number] take one t ablet by mouth one time daily for one week then take 1 two times daily BUPROPION HCL ER (SR) 100 MG ORAL [id number] BUPROPION HCL Inacti ve TRAVEL SICKNESS 25 MG ORAL CHEW chew and swallow one t ablet every 6 hours as needed TRAVEL SICKNESS 25 MG ORAL CHEW 023682 MECLIZINE HCL Inactive SUMATRIPTAN SUCCINATE 100 MG ORAL TABS Take one PRN for migrane SUMATRIPTAN SUCCINATE 100 MG ORAL TABS 948971 SUMATRIPT AN SUCCINATE Inactive COMPRO 25 MG RECTAL SUPP insert or apply one supposit ory rectally as directed every 12 hours as needed for nausea COMP RO 25 MG RECTAL SUPP 240172 PROCHLORPERAZINE Inactive ONDANSETRON [address] one tablet on tongue and allow to dissolve every 6 hours as needed for vomitting ON DANSETRON 8 MG ORAL TBDP 018861 ONDANSETRON Inactive HYDROCODONE-ACETAMINOPHEN 5-325 MG TABS 0.5 to 1 tab b y mouth every 6 hours as needed HYDROCODONE-ACETAMINOPHEN 5-325 MG TABS 8 18792 HYDROCODONE-ACETAMINOPHEN Inactive BACTRIM DS 800-160 MG TAB 1 tab by mouth twice daily 2 BACTRIM DS 800-160 MG TAB 783009 TRIMETHOPRIM-SULFAMETHOXAZOLE Inac tive DIFLUCAN 150 MG TAB 1 tablet by mouth if needed, hold until symptoms start DIFLUCAN 150 MG TAB 462704 FLUCONAZOLE Inactive IBUPROFEN 800 MG TABS 1 tab every 8 hours with food 31/03/21 IBUPROFEN 800 MG TABS 082128 IBUPROFEN Inactive HYDROCODONE-ACETAMINOPHEN 5-325 MG TABS 1 tab by mouth every 6 hours as needed HYDROCODONE-ACETAMINOPHEN 5-325 MG TABS 954888 HYDROCODONE-ACETAMINOPHEN Inactive BACTROBAN 2 % CREAM Apply to affected area BID for up to 10 days BACTROBAN 2 % CREAM 685074 MUPIROCIN CALCIUM Inactive MAGNESIUM CITRATE 1.745 GM/30ML ORAL SOLN 150ml po BID PRN C onstipation MAGNESIUM CITRATE 1.745 GM/30ML ORAL SOLN 074792 0 MAGNESIUM CITRATE Inactive DIFLUCAN 150 MG TAB 1 tablet by mouth qod DIFLUCAN 150 MG TAB 010722 FLUCONAZOLE Inactive BACTRIM DS 800-160 MG TAB 1 tab by mouth twice daily 2 BACTRIM DS 800-160 MG TAB 702569 TRIMETHOPRIM-SULFAMETHOXAZOLE Inac tive CLARITIN 10 MG TAB 1 tablet by mouth daily as needed for allergi es CLARITIN 10 MG TAB 802802 LORATADINE Inactive CIPRO 500 MG TAB 1 tablet by mouth twice daily CIPRO 500 MG TAB 137747 CIPROFLOXACIN HCL Inactive FLUCONAZOLE 150 MG TABS take 1 tab po qday once 04/06 FLUCONAZOLE 150 MG TABS 833168 FLUCONAZOLE Inactive ZITHROMAX Z-KARTHIK 250 MG TABS 2 today, then 1 daily for 4 days 201 09/18/28 ZITHROMAX Z-KARTHIK 250 MG TABS 2806692 AZITHROMYCIN Inac tive PREDNISONE 20 MG TAB 2 tabs daily for 3 days, 1 t ab daily for 3 days, 1/2 tab daily for 2 days PREDNISONE 20 MG TAB 861960 PREDNISON E Inactive AZITHROMYCIN 250 MG TABS 2 po qd x 1 day, then 1 po qd x 4 days AZITHROMYCIN 250 MG TABS 1835611 AZITHROMYCIN Inactiv e PREDNISONE 20 MG TAB 2 tabs daily for 3 days, 1 t ab daily for 3 days, 1/2 tab daily for 2 days PREDNISONE 20 MG TAB 183935 PREDNISON E Inactive CEFDINIR 300 MG CAPS by mouth twice a day CEFDINIR 300 MG CAPS 186634 CEFDINIR Inactive TRIAMCINOLONE ACETONIDE 0.1 % OINT Apply to affected a reas TID for up to 2 weeks TRIAMCINOLONE ACETONIDE 0.1 % OINT 825777 6 TRIAMCINOLONE ACETONIDE Inactive PREDNISONE 20 MG TAB 2 tabs daily for 3 days, 1 t ab daily for 3 days, 1/2 tab daily for 2 days PREDNISONE 20 MG TAB 200459 PREDNISON E Inactive BACTRIM DS 800-160 MG TABS 1 po BID x 7 days 0 BACTRIM DS 800-160 MG TABS 707112 SULFAMETHOXAZOLE-TRIMETHOPRIM Inactive CIPRO 500 MG TAB 1 tablet by mouth twice daily CIPRO 500 MG TAB 428259 CIPROFLOXACIN HCL Inactive AZITHROMYCIN 250 MG TABS 2 po qd x 1 day, then 1 po qd x 4 days AZITHROMYCIN 250 MG TABS 9843248 AZITHROMYCIN Inactiv e FLAGYL 500 MG TAB 1 tablet by mouth bid FLAGYL 500 MG TAB 009693 METRONIDAZOLE Inactive AZITHROMYCIN 250 MG TABS 2 po qd x 1 day, then 1 po qd x 4 days AZITHROMYCIN 250 MG TABS 8940823 AZITHROMYCIN Inactiv e AMOXICILLIN 500 MG ORAL CAPS 2 po BID x 10 days 09/12 AMOXICILLIN 500 MG ORAL CAPS 517356 AMOXICILLIN Inactive Immunizations Vaccine Administration Date Value [...] Report: CBC W/DIFF, Comp. Metabolic Panel, [place] [facility] [place] sodium, serum 139 mmol/L 414-894 9424/10/21 carbon dioxide, venous blood 33.5 mmol/L 21.0-32 [...] Report: CBC W/DIFF, Comp. Metabolic Panel, Qual [facility] [place] H[place] leukocyte count, blood 7.9 10^3/MM^3 [...] PANEL - Chemistry cholesterol, serum 192 mg/dL 581-225 2753/02/20 HDL cholesterol, serum 31 mg/dL > OR [...] 11 .0-15.0 platelet count 218 THOUSAND/UL 10*3/mm3 459-387 6892/02/20 mean platelet volume 9.7 fL 7.5-12.5 Lab Report: Chlamydia/GC APTIMA/16701 - Lab chlamydia DNA probe NOT DETECTED NOT DETECTED Lab Report: Chlamydia/GC APTIMA/76675 - Microbiology Neisseria gonorrhoeae DNA probe NOT DETECTED NO T DETECTED Lab Report: Comp. Metabolic Panel, Thyro id Stimulating Hormone (L), Eryt ... - Chemistry sodium, serum 137 mmol/L 577-989 0366/05/27 carbon dioxide, venous blood 29.1 mmol/L 21.0-32 [...] 5.0-8.5 Encounters Code Encounter Date Provider Facility CPT-70237 Level 4 Est. Patient 11:08:12 IT ACCOUNT MANAGER Checo Conklin MD [facility] CPT-71574 Level 4 Est. Patient 16:06:48 IT ACCOUNT MANAGER Checo Conklin MD [facility] CPT-11457 Level 3 Est. Patient 09:11:49 CDT Efren almendarez [facility] CPT-04553 Level 2 Est. Patient 19:53:27 CDT Tanner hill MD [facility] CPT-52413 Level 3 Est. Patient 09:15:34 CDT Efren almendarez [facility] CPT-74760 Level 3 Est. Patient 11:28:51 IT ACCOUNT MANAGER Efren almendarez [facility] CPT-25872 Level 4 Est. Patient 13:55:46 IT ACCOUNT MANAGER Checo Conklin MD [facility] CPT-04567 Level 4 Est. Patient 17:10:53 CDT Checo Conklin MD [facility] CPT-99079 Level 3 Est. Patient 15:56:22 CDT Checo Conklin MD [facility] CPT-00779 Level 3 Est. Patient 15:29:07 CDT Checo Conklin MD [facility] CPT-70534 Level 3 Est. Patient 14:38:41 CDT Checo Conklin MD [facility] CPT-33550 Level 3 Est. Patient 15:22:03 IT ACCOUNT MANAGER Thomas reynolds DO [facility] CPT-59335 Level 3 Est. Patient 13:34:17 IT ACCOUNT MANAGER Checo Conklin MD [facility] CPT-07155 Level 3 Est. Patient 12:29:32 CDT Dangelo arroyo MD [facility] CPT-30841 Level 3 Est. Patient 16:53:02 CDT Checo Conklin MD [facility] CPT-65585 Level 3 Est. Patient 16:37:13 CDT Checo Conklin MD [facility] CPT-07483 Level 3 Est. Patient 16:16:59 CDT Paul Hamlin MD [facility] CPT-22099 Level 3 Est. Patient 14:20:13 CDT Dangelo arroyo MD [facility] CPT-74982 Level 4 Est. Patient 11:29:33 CDT Checo Conklin MD [facility] CPT-53204 Level 3 Est. Patient 17:08:31 CDT Checo Conklin MD [facility] CPT-36070 Level 3 Est. Patient 16:50:42 IT ACCOUNT MANAGER Checo Conklin MD [facility] CPT-41138 Level 4 Est. Patient 09:26:08 IT ACCOUNT MANAGER Checo Conklin MD [facility] CPT-97777 Level 3 Est. Patient 11:37:10 CDT Checo Conklin MD [facility] CPT-66105 Level 4 Est. Patient 14:07:38 CDT Checo Conklin MD [facility] CPT-46644 Level 3 Est. Patient 09:54:41 CDT Checo Conklin MD [facility] CPT-15144 Level 3 Est. Patient 11:10:54 CDT Paul Hamlin MD [facility] CPT-30988 Level 3 Est. Patient 14:16:56 IT ACCOUNT MANAGER Checo Conklin MD [facility] CPT-71124 Level 3 Est. Patient 11:04:11 IT ACCOUNT MANAGER Checo Conklin MD [facility] CPT-07699 Level 3 Est. Patient 17:09:26 CDT Dangelo arroyo MD [facility] CPT-92038 Level 3 Est. Patient 16:54:37 CDT Checo Conklin MD [facility] Procedures Code Procedure Name Date Entry Date Standard Desc ription CPT-89174 UA w micro - LAB USE ONLY 17:06:46 CDT 2015 CPT-06803 [facility] Qual - LAB USE ONLY 17:06:46 CDT 05/06 CPT-37542 CMP - LAB USE ONLY 17:06:46 CDT CPT-74326 CBC with Diff - LAB USE ONLY 17:06:45 CDT 2 CPT-36105 Venipuncture Draw Fee 17:06:45 CDT CPT-LR Lesion Removal 19:53:27 CDT CPT-OV Office Visit 11:31:28 CDT CPT-64426 Tubersol 09:39:29 CDT CPT-J2550 Phenergan 25 mg (Promethazine) 13:59:02 IT ACCOUNT MANAGER CPT-J1885 Toradol 60 mg (Ketorolac) 13:59:02 IT ACCOUNT MANAGER 2012
--- OUTSIDE RECORDS SUMMARY | 2019-09-29 01:33 | XMS REPORT | Clinical Summary ---
Author Author Admin, Bethany Gonzales Organization [facility] Address Unknown Phone Unavailable Allergies, Adverse Reactions, [...] vulvovaginitis, unspecified Pharyngitis 462 Active Jimarine Medel RELIGIOUS HEALER Acute pharyngitis Cough 786.2 Active Efren Medel [...] Joshua Breast mass, right ICD-611.72 Inactive Checo Cnoklin MD Mastalgia ICD-611.71 Inactive Checo Joshua Sinusitis [...] 1 tablet by mouth qod FLUCONA ZOLE 21127935701 Active Jillina Frazell RELIGIOUS HEALER Active CLARITIN 10 MG TAB 1 tablet by mouth daily as needed for allergies LORATADINE 48980857213 Active Jillina Frazell RELIGIOUS HEALER Active AZITHROMYCIN 250 MG TABS 2 po qd x 1 day, then 1 po qd x 4 days AZITHROMYCIN 15503300744 No Longer Active Jillina Frazell RELIGIOUS HEALER Active FLAGYL 500 MG TAB 1 tablet by mouth bid METRONI DAZOLE 04761370124 No Longer Active Checo Conklin MD Active FOCALIN XR 10 MG ORAL [id number] 1 po q a.m. DEX METHYLPHENIDATE HCL 57944982928 Active Checo Conklin MD Active MAGNESIUM CITRATE 1.745 GM/30ML ORAL SOLN 150ml po BID PRN C onstipation MAGNESIUM CITRATE 38684614534 No Longer Active Checo Conklin MD Active BACTROBAN 2 % CREAM Apply to affected area BID for up to 10 days MUPIROCIN CALCIUM 76345138849 No Longer Active Checo Conklin MD Active HYDROCODONE-ACETAMINOPHEN 5-325 MG TABS 1 tab by mouth every 6 hours as needed HYDROCODONE-ACETAMINOPHEN 27919099998 No Longer Activ e Checo Conklin MD Active IBUPROFEN 800 MG TABS 1 tab every 8 hours with food 31/03/21 IBUPROFEN 48355361600 No Longer Active Checo Conklin MD Activ e DIFLUCAN 150 MG TAB 1 tablet by mouth if needed, hold until symptoms start FLUCONAZOLE 63411449130 No Longer Active Checo Ortiz MD Active BACTRIM DS 800-160 MG TAB 1 tab by mouth twice daily 2 TRIMETHOPRIM-SULFAMETHOXAZOLE 12062738898 No Longer Active Corry leong LPN Active MIRALAX PACK 1 po qd PRN Constipation POLYETHYL JOEL GLYCOL 3350 19723647402 Active Checo Conklin MD Active HYDROCODONE-ACETAMINOPHEN 5-325 MG TABS 0.5 to 1 tab b y mouth every 6 hours as needed HYDROCODONE-ACETAMINOPHEN 18711881710 No Longer Active Checo Conklin MD Active ONDANSETRON [address] one tablet on tongue and allow to dissolve every 6 hours as needed for vomitting ONDANSETRO N 28531762441 No Longer Active Checo Conklin MD Active COMPRO 25 MG RECTAL SUPP insert or apply one supposit ory rectally as directed every 12 hours as needed for nausea PROCHLORPERA ZINE 71854343743 No Longer Active Checo Conklin MD Active SUMATRIPTAN SUCCINATE 100 MG ORAL TABS Take one PRN for migrane SUMATRIPTAN SUCCINATE 88290387761 No Longer Active Checo Conklin MD Active TRAVEL SICKNESS 25 MG ORAL CHEW chew and swallow one t ablet every 6 hours as needed MECLIZINE HCL 45334571814 No Longer Active Joe Conklin MD Active BUPROPION HCL ER (SR) 100 MG ORAL [id number] take one t ablet by mouth one time daily for one week then take 1 two times daily BUPROPION HCL 56578813658 No Longer Active Checo Conklin MD Activ e TERBINAFINE HCL 250 MG ORAL TABS take one table PO one time abran y TERBINAFINE HCL 66582221461 No Longer Active Checo Conklin MD Active METOCLOPRAMIDE HCL 10 MG ORAL TABS take one PO tid PRN nausea 20 29/12/14 METOCLOPRAMIDE HCL 53005745329 No Longer Active Checo Conklin MD Active DICLOFENAC SODIUM 75 MG TBEC 1 tablet by mouth twice daily P RN Knee pain DICLOFENAC SODIUM 94206864840 No Longer Active Checo Conklin MD Active LAMISIL 250 MG TAB 1 po qd TERBINAFINE HCL 548 72160893 No Longer Active Checo Conklin MD Active REGLAN 10 MG TAB 1 po TID PRN Nausea METOCLOPRA MIDE HCL 20291430668 No Longer Active Checo Conklin MD Active CELEXA 20 MG TABS 1 tablet by mouth daily CITALOPRAM HYDROBROMIDE 32211445860 No Longer Active Checo Conklin MD Activ e AZITHROMYCIN 250 MG TABS 2 po qd x 1 day, then 1 po qd x 4 days AZITHROMYCIN 88365202765 No Longer Active Checo Conklin MD Active HYDROCODONE-ACETAMINOPHEN 5-325 MG TABS 1 po q 6hr PRN Pain 2013 HYDROCODONE-ACETAMINOPHEN 78370085511 No Longer Active Lenora Conklin MD Active PHENAZOPYRIDINE HCL 200 MG TABS take 1 tab po TID for bladder pa in PHENAZOPYRIDINE HCL 55678308059 No Longer Active Checo Joshua Active CIPRO 500 MG TAB 1 tablet by mouth twice daily CIPROFLOXACIN HCL 94759988018 No Longer Active Dangelo Rangel MD Active HYDROCODONE-ACETAMINOPHEN 5-325 MG TABS 1/2 to 1 po q 4 hour s prn cough HYDROCODONE-ACETAMINOPHEN 37657365881 No Longer Activ e Dangelo Rangel MD Active BACTRIM DS 800-160 MG TABS 1 po BID x 7 days 0 SULFAMETHOXAZOLE-TRIMETHOPRIM 81792377088 No Longer Active Checo Conklin MD Active PREDNISONE 20 MG TAB 2 tabs daily for 3 days, 1 t ab daily for 3 days, 1/2 tab daily for 2 days PREDNISONE 75028566029 No Longer Active Checo Conklin MD Active TRIAMCINOLONE ACETONIDE 0.1 % OINT Apply to affected a reas TID for up to 2 weeks TRIAMCINOLONE ACETONIDE 93734161666 No Longer A ctive Checo Conklin MD Active CEFDINIR 300 MG CAPS by mouth twice a day CEFDI JAZZY 67212655864 No Longer Active Dangelo Rangel MD Active BUPROPION HCL (SMOKING DETER) 150 MG [id number] 1 a day for 1 week then 1 twice a day BUPROPION HCL (SMOKING DETER) 13616348424 No Lo nger Active Checo Conklin MD Active SIMVASTATIN 20 MG TABS 1 po qd SIMVASTATIN 5076726402 5 Active Checo Conklin MD Active CHANTIX STARTING MONTH KARTHIK 0.5 MG X 11 & 1 MG X 42 TAB S 0.5mg daily for 3 days, then 0.5mg BID for 4 days, then 1mg BID VARENICLINE TARTRATE 18893366293 No Longer Active Checo Conklin MD Activ e XANAX 0.5 MG TABS 1 po BID PRN anxiety ALPRAZOLAM 63569430798 Active Checo Conklin MD Active CONCERTA 18 MG CR-TABS 1 po q a.m. METHYLPHENID ATE HCL 42913676172 No Longer Active Checo Conklin MD Active AMBIEN 5 MG TAB 1 po qHS PRN Insomnia ZOLPIDEM TARTRATE 73061755531 Active Checo Conklin MD Active TRAZODONE HCL 100 MG TAB 0.5 to 1 po qHS PRN Insomnia TRAZODONE HCL 59433995142 No Longer Active Checo Conklin MD Acti ve FIORICET 325-50-40 MG TAB 1 tablet by mouth four times daily as needed [id number] 53338702127 No Longer Active Checo Conklin MD Active PHENERGAN CREAM* 25mg applied to wrist q6hr PRN Nausea PHENERGAN CREAM* No Longer Active Checo Conklin MD A ctive FLONASE 50 MCG/ACT SUSP 1 spray each nostril am and hs FLUTICASONE PROPIONATE 98673626401 No Longer Active Checo Conklin MD Activ e ANTIPYRINE-BENZOCAINE 5.4-1.4 % SOLN 1-2 drops in affected ear BENZOCAINE-ANTIPYRINE 04117379812 No Longer Active Checo Coknlin MD Active CEFDINIR 300 MG CAPS 1 po bid CEFDINIR 21041637 120 No Longer Active Checo Conklin MD Active PREDNISONE 20 MG TAB 2 tabs daily for 3 days, 1 t ab daily for 3 days, 1/2 tab daily for 2 days PREDNISONE 39760211826 No Longer Active Aracelis Conklin MD Active AZITHROMYCIN 250 MG TABS 2 po qd x 1 day, then 1 po qd x 4 days AZITHROMYCIN 22082904109 No Longer Active Checo Conklin MD Active PREDNISONE 20 MG TAB 2 tabs daily for 3 days, 1 t ab daily for 3 days, 1/2 tab daily for 2 days PREDNISONE 67189676371 No Longer Active Checo Conklin MD Active ZITHROMAX Z-KARTHIK 250 MG TABS 2 today, then 1 daily for 4 days 201 09/18/28 AZITHROMYCIN 37766463590 No Longer Active Paul Hamlin MD Active FOCALIN XR 10 MG [id number] 1 po q a.m. D EXMETHYLPHENIDATE HCL 69630298230 No Longer Active Paul Hamlin MD Activ e PERCOCET 10-325 MG TABS 1 tablet every 6 hours as needed for pain OXYCODONE-ACETAMINOPHEN 97276605834 No Longer Active Paul Hamlin MD Active LORTAB 5 5-500 MG TABS 1/2 to 1 tablet by mouth flaquito ry 4 hours as needed for pain HYDROCODONE-ACETAMINOPHEN 86734229525 No Longer Active Checo Conklin MD Active FOCALIN XR 15 MG [id number] 1 po q a.m. D EXMETHYLPHENIDATE HCL 72511829072 No Longer Active Checo Conklin MD Activ e ZOFRAN ODT 4 MG TBDP 1 po q6hr PRN Nausea ONDAN SETRON 92209397963 No Longer Active Checo Conklin MD Active PERCOCET 5-325 MG TABS 1 tablet by mouth every 6 hours as needed OXYCODONE-ACETAMINOPHEN 22398785812 No Longer Active Checo Conklin MD Active PYRIDIUM 200 MG TABS take 1 tab po TID prn urinary pain. 0 PHENAZOPYRIDINE HCL 27920504490 No Longer Active Checo Conklin MD Active FLUCONAZOLE 150 MG TABS take 1 tab po qday once 04/06 FLUCONAZOLE 23909118391 No Longer Active Dangelo Rangel MD Acti ve CIPRO 500 MG TAB 1 tablet by mouth twice daily CIPROFLOXACIN HCL 43467880456 No Longer Active Dangelo Rangel MD Active PYRIDIUM 200 MG TABS take 1 tab po TID prn urinary pain. 0 PYRIDIUM 200 MG TABS 3621608 PHENAZOPYRIDINE HCL Inactive PERCOCET 5-325 MG TABS 1 tablet by mouth every 6 hours as needed PERCOCET 5-325 MG TABS 8748883 OXYCODONE-ACETAMINOPHEN I nactive ZOFRAN ODT 4 MG TBDP 1 po q6hr PRN Nausea ZOFRAN ODT 4 MG TBDP 202013 ONDANSETRON Inactive FOCALIN XR 15 MG [id number] 1 po q a.m. F OCALIN XR 15 MG [id number] DEXMETHYLPHENIDATE HCL Inactive LORTAB 5 5-500 MG TABS 1/2 to 1 tablet by mouth flaquito ry 4 hours as needed for pain LORTAB 5 5-500 MG TABS HYDROCODONE-A CETAMINOPHEN Inactive PERCOCET 10-325 MG TABS 1 tablet every 6 hours as needed for pain PERCOCET 10-325 MG TABS 7474415 OXYCODONE-ACETAMINOPHEN Inactive FOCALIN XR 10 MG [id number] 1 po q a.m. F OCALIN XR 10 MG [id number]-[id number] DEXMETHYLPHENIDATE HCL Inactive CEFDINIR 300 MG CAPS 1 po bid CEFDINIR 300 MG CAPS 20 0346 CEFDINIR Inactive ANTIPYRINE-BENZOCAINE 5.4-1.4 % SOLN 1-2 drops in affected ear ANTIPYRINE-BENZOCAINE 5.4-1.4 % SOLN 623575 BENZOCAINE-ANTIPYRINE I nactive FLONASE 50 MCG/ACT SUSP [...] PRN Insomnia TRAZODONE HCL 100 MG TAB 149685 TRAZODONE HCL Inactive CONCERTA 18 MG CR-TABS [...] s prn cough HYDROCODONE-ACETAMINOPHEN 5-325 MG TABS 466821 HYDROCODONE-ACETAMINOPHEN Inactive PHENAZOPYRIDINE HCL 200 MG TABS take 1 tab po TID for bladder pa in PHENAZOPYRIDINE HCL 200 MG TABS 2470203 PHENAZOPYRIDINE HCL Inactive HYDROCODONE-ACETAMINOPHEN 5-325 MG TABS 1 po q 6hr PRN Pain 2013 HYDROCODONE-ACETAMINOPHEN 5-325 MG TABS 078477 HYDROCODONE-ACETAMINOPHEN Inactive CELEXA 20 MG TABS 1 tablet by mouth daily CELEXA 20 MG TABS 619484 CITALOPRAM HYDROBROMIDE Inactive REGLAN 10 MG TAB 1 po TID PRN Nausea REGLAN 10 MG TAB 282984 METOCLOPRAMIDE HCL Inactive LAMISIL 250 MG TAB 1 po qd LAMISIL 250 MG TAB 903009 TERBINAFINE HCL Inactive DICLOFENAC SODIUM 75 MG TBEC 1 tablet by mouth twice daily P RN Knee pain DICLOFENAC SODIUM 75 MG TBEC 384543 DICLOFENAC S ODIUM Inactive METOCLOPRAMIDE HCL 10 MG ORAL TABS take one PO tid PRN nausea 20 29/12/14 METOCLOPRAMIDE HCL 10 MG ORAL TABS 894779 METOCLOPRAMID E HCL Inactive TERBINAFINE HCL 250 MG ORAL TABS take one table PO one time abarn y TERBINAFINE HCL 250 MG ORAL TABS 679774 TERBINAFINE HCL Inactive BUPROPION HCL ER (SR) 100 MG ORAL [id number] take one t ablet by mouth one time daily for one week then take 1 two times daily BUPROPION HCL ER (SR) 100 MG ORAL [id number] BUPROPION HCL Inacti ve TRAVEL SICKNESS 25 MG ORAL CHEW chew and swallow one t ablet every 6 hours as needed TRAVEL SICKNESS 25 MG ORAL CHEW 782780 MECLIZINE HCL Inactive SUMATRIPTAN SUCCINATE 100 MG ORAL TABS Take one PRN for migrane SUMATRIPTAN SUCCINATE 100 MG ORAL TABS 366776 SUMATRIPT AN SUCCINATE Inactive COMPRO 25 MG RECTAL SUPP insert or apply one supposit ory rectally as directed every 12 hours as needed for nausea COMP RO 25 MG RECTAL SUPP 596408 PROCHLORPERAZINE Inactive ONDANSETRON [address] one tablet on tongue and allow to dissolve every 6 hours as needed for vomitting ON DANSETRON 8 MG ORAL TBDP 988717 ONDANSETRON Inactive HYDROCODONE-ACETAMINOPHEN 5-325 MG TABS 0.5 to 1 tab b y mouth every 6 hours as needed HYDROCODONE-ACETAMINOPHEN 5-325 MG TABS 8 19119 HYDROCODONE-ACETAMINOPHEN Inactive BACTRIM DS 800-160 MG TAB 1 tab by mouth twice daily 2 BACTRIM DS 800-160 MG TAB 369233 TRIMETHOPRIM-SULFAMETHOXAZOLE Inac tive DIFLUCAN 150 MG TAB 1 tablet by mouth if needed, hold until symptoms start DIFLUCAN 150 MG TAB 289134 FLUCONAZOLE Inactive IBUPROFEN 800 MG TABS 1 tab every 8 hours with food 31/03/21 IBUPROFEN 800 MG TABS 390262 IBUPROFEN Inactive HYDROCODONE-ACETAMINOPHEN 5-325 MG TABS 1 tab by mouth every 6 hours as needed HYDROCODONE-ACETAMINOPHEN 5-325 MG TABS 988999 HYDROCODONE-ACETAMINOPHEN Inactive BACTROBAN 2 % CREAM Apply to affected area BID for up to 10 days BACTROBAN 2 % CREAM 697252 MUPIROCIN CALCIUM Inactive MAGNESIUM CITRATE 1.745 GM/30ML ORAL SOLN 150ml po BID PRN C onstipation MAGNESIUM CITRATE 1.745 GM/30ML ORAL SOLN 017859 0 MAGNESIUM CITRATE Inactive CIPRO 500 MG TAB 1 tablet by mouth twice daily CIPRO 500 MG TAB 479071 CIPROFLOXACIN HCL Inactive FLUCONAZOLE 150 MG TABS take 1 tab po qday once 04/06 FLUCONAZOLE 150 MG TABS 998085 FLUCONAZOLE Inactive ZITHROMAX Z-KARTHIK 250 MG TABS 2 today, then 1 daily for 4 days 201 09/18/28 ZITHROMAX Z-KARTHIK 250 MG TABS 2225359 AZITHROMYCIN Inac tive PREDNISONE 20 MG TAB 2 tabs daily for 3 days, 1 t ab daily for 3 days, 1/2 tab daily for 2 days PREDNISONE 20 MG TAB 540610 PREDNISON E Inactive AZITHROMYCIN 250 MG TABS 2 po qd x 1 day, then 1 po qd x 4 days AZITHROMYCIN 250 MG TABS 8725101 AZITHROMYCIN Inactiv e PREDNISONE 20 MG TAB 2 tabs daily for 3 days, 1 t ab daily for 3 days, 1/2 tab daily for 2 days PREDNISONE 20 MG TAB 853713 PREDNISON E Inactive CEFDINIR 300 MG CAPS by mouth twice a day CEFDINIR 300 MG CAPS 352295 CEFDINIR Inactive TRIAMCINOLONE ACETONIDE 0.1 % OINT Apply to affected a reas TID for up to 2 weeks TRIAMCINOLONE ACETONIDE 0.1 % OINT 964084 6 TRIAMCINOLONE ACETONIDE Inactive PREDNISONE 20 MG TAB 2 tabs daily for 3 days, 1 t ab daily for 3 days, 1/2 tab daily for 2 days PREDNISONE 20 MG TAB 106750 PREDNISON E Inactive BACTRIM DS 800-160 MG TABS 1 po BID x 7 days 0 BACTRIM DS 800-160 MG TABS 499906 SULFAMETHOXAZOLE-TRIMETHOPRIM Inactive CIPRO 500 MG TAB 1 tablet by mouth twice daily CIPRO 500 MG TAB 276644 CIPROFLOXACIN HCL Inactive AZITHROMYCIN 250 MG TABS 2 po qd x 1 day, then 1 po qd x 4 days AZITHROMYCIN 250 MG TABS 9594112 AZITHROMYCIN Inactiv e FLAGYL 500 MG TAB 1 tablet by mouth bid FLAGYL 500 MG TAB 007657 METRONIDAZOLE Inactive AZITHROMYCIN 250 MG TABS 2 po qd x 1 day, then 1 po qd x 4 days AZITHROMYCIN 250 MG TABS 5304779 AZITHROMYCIN Inactiv e Immunizations Vaccine Administration Date [...] ... - Chemistry sodium, serum 141 mmol/L 879-623 3748/01/26 carbon dioxide, venous blood 30.0 mmol/L 21.0-32 .0 potassium, serum 4.0 mmol/L 3.5-5.2 chloride, serum 105 mmol/L 98-107 blood glucose 85 mg/dL 65-110 urea nitrogen, blood 9 mg/dL 7-18 creatinine, serum 0.66 mg/dL 0.55-1.30 alanine aminotransferase (SGPT), serum 31 U/L 12-78 aspartate aminotransferase (SGOT), serum 21 U/L 15-37 calcium, serum 8.2 mg/dL 8.5-10.1 bilirubin, serum, total 1.10 mg/dL 0.00-1.00 cholesterol, serum 178 mg/dL 690-104 9658/01/26 triglyceride, serum, fasting 149 mg/dL 30-200 HDL [...] 5.0-8.5 Encounters Code Encounter Date Provider Facility CPT-52309 Level 3 Est. Patient 11:28:51 [employer]RI[employer] INSPECT[employer] Efren almendarez APRN [facility] CPT-62429 Level 4 Est. Patient 13:55:46 [employer]RIX INSPECTOR Checo Conklin MD [facility] CPT-29627 Level 4 Est. Patient 17:10:53 CDT Checo Conklin MD [facility] CPT-98267 Level 3 Est. Patient 15:56:22 CDT Checo Conklin MD [facility] CPT-89418 Level 3 Est. Patient 15:29:07 CDT Checo Conklin MD [facility] CPT-17843 Level 3 Est. Patient 14:38:41 CDT Checo Conklin MD [facility] CPT-87501 Level 3 Est. Patient 15:22:03 MATRIX INSPECTOR Thomas reynolds DO [facility] CPT-04915 Level 3 Est. Patient 13:34:17 MATRIX INSPECTOR Checo Conklin MD [facility] CPT-35104 Level 3 Est. Patient 12:29:32 CDT Dangelo arroyo MD [facility] CPT-31338 Level 3 Est. Patient 16:53:02 CDT Checo Conklin MD [facility] CPT-94302 Level 3 Est. Patient 16:37:13 CDT Checo Conklin MD [facility] CPT-05936 Level 3 Est. Patient 16:16:59 CDT Paul Hamlin MD [facility] CPT-38048 Level 3 Est. Patient 14:20:13 CDT Dangelo arroyo MD [facility] CPT-05734 Level 4 Est. Patient 11:29:33 CDT Checo Conklin MD [facility] CPT-02126 Level 3 Est. Patient 17:08:31 CDT Checo Conklin MD [facility] CPT-06319 Level 3 Est. Patient 16:50:42 [employer]RIX INSPECTOR Checo Conklin MD [facility] CPT-22283 Level 4 Est. Patient 09:26:08 MATRIX INSPECTOR Checo Conklin MD [facility] CPT-03858 Level 3 Est. Patient 11:37:10 CDT Checo Conklin MD [facility] CPT-19217 Level 4 Est. Patient 14:07:38 CDT Checo Conklin MD [facility] CPT-34239 Level 3 Est. Patient 09:54:41 CDT Checo Conklin MD [facility] CPT-93737 Level 3 Est. Patient 11:10:54 CDT Paul Hamlin MD [facility] CPT-81844 Level 3 Est. Patient 14:16:56 MATRIX INSPECTOR Checo Conklin MD [facility] CPT-23223 Level 3 Est. Patient 11:04:11 MATRIX INSPECTOR Checo Conklin MD [facility] CPT-51710 Level 3 Est. Patient 17:09:26 CDT Dangelo arroyo MD [facility] CPT-10511 Level 3 Est. Patient 16:54:37 CDT Checo Conklin MD [facility] Procedures Code Procedure Name Date Entry Date Standard Desc ription CPT-OV Office Visit 11:31:28 CDT CPT-04568 Tubersol 09:39:29 CDT CPT-J2550 Phenergan 25 mg (Promethazine) 13:59:02 [employer]RIX INSPECTOR CPT-J1885 Toradol 60 mg (Ketorolac) 13:59:02 MATRIX INSPECTOR 2012
--- OUTSIDE RECORDS SUMMARY | 2019-09-29 01:34 | XMS REPORT | Clinical Summary ---
Author Author Admin, Bethany Ayala [facility] Address Unknown Phone Unavailable Allergies, Adverse Reactions, [...] CAPSULE 1 po qd PRN Edema HYDROCHLOROTHIAZIDE [id number] Active Checo Conklin MD Ac tive IBUPROFEN 800 MG ORAL TABLET 1 tab every 8 hours as needed for p ain IBUPROFEN 49097093238 Active Dangelo Rangel MD Acti ve PAROXETINE HCL 40 MG ORAL TABLET 1 po qd PAR OXETINE HCL 72694044602 Active Checo Conklin MD Active MIRALAX ORAL POWDER 8.5 to 17g po qd PRN Constipation POLYETHYLENE GLYCOL 3350 [id number] No Longer Active Checo Conklin MD Active PROTONIX 40 MG ORAL TABLET DELAYED RELEASE 1 pill by [facility] daily, for acid reflux PANTOPRAZOLE SODIUM 74079526354 No Longer Activ e Corry Méndez LPN Active FLAGYL 500 MG ORAL TABLET 1 tablet by mouth bid 08/29 METRONIDAZOLE 37554016143 No Longer Active Corry Méndez LPN Active CLARITHROMYCIN 500 MG ORAL TABLET 1 tab po BID x 14 days CLARITHROMYCIN 32080308602 No Longer Active Corry Méndez LPN Active AMOXICILLIN 500 MG ORAL CAPSULE 2 po BID x 14 days for H. Pylori AMOXICILLIN 23742420388 No Longer Active Corry Méndez LPN Active FLUTICASONE PROPIONATE 50 MCG/ACT NASAL SUSPENSION 2 s prays/nostril qd PRN Congestion/Allergies FLUTICASONE PROPIONATE 8997794024 9 No Longer Active Checo Conklin MD Active AMOXICILLIN 500 MG ORAL CAPSULE 2 po BID x 10 days 201 01/15/27 AMOXICILLIN 74255067068 No Longer Active Checo Conklin MD Activ e CLARITIN 10 MG ORAL TABLET 1 tablet by mouth daily as needed for allergies LORATADINE 57091688210 No Longer Active Checo Ortiz MD Active BACTRIM DS 800-160 MG ORAL TABLET 1 tab by mouth twice daily 201 12/19/26 TRIMETHOPRIM-SULFAMETHOXAZOLE 49486027675 No Longer Active S cott D Celada MD Active DIFLUCAN 150 MG ORAL TABLET 1 tablet by mouth qod 2015 FLUCONAZOLE 82670279339 No Longer Active Efren Medel APRN Act mike AZITHROMYCIN 250 MG ORAL TABLET 2 po qd x 1 day, then 1 po q d x 4 days AZITHROMYCIN 40891136016 No Longer Active Efren flores WINDSMITH Active FLAGYL 500 MG ORAL TABLET 1 tablet by mouth bid 04/13 METRONIDAZOLE 76950018419 No Longer Active Checo Conklin MD Acti ve FOCALIN XR 10 MG ORAL CAPSULE EXTENDED RELEASE 24 HOUR 1 po q a.m. DEXMETHYLPHENIDATE HCL 06329260958 Active Checo Conklin MD Active MAGNESIUM CITRATE 1.745 GM/30ML ORAL SOLUTION 150ml po BID P RN Constipation MAGNESIUM CITRATE 82737126735 No Longer Active Checo Conklin MD Active BACTROBAN 2 % EXTERNAL CREAM Apply to affected area BID for up to 10 days MUPIROCIN CALCIUM 72238039385 No Longer Active Checo Conklin MD Active HYDROCODONE-ACETAMINOPHEN 5-325 MG ORAL TABLET 1 tab b y mouth every 6 hours as needed HYDROCODONE-ACETAMINOPHEN 99039964456 No Longer Active Checo Conklin MD Active IBUPROFEN 800 MG ORAL TABLET 1 tab every 8 hours with food 03/20 IBUPROFEN 81870530213 No Longer Active Checo Conklin MD Active DIFLUCAN 150 MG ORAL TABLET 1 tablet by mouth if neede d, hold until symptoms start FLUCONAZOLE 71630631868 No Longer Active Checo Conklin MD Active BACTRIM DS 800-160 MG ORAL TABLET 1 tab by mouth twice daily 201 11/23/03 TRIMETHOPRIM-SULFAMETHOXAZOLE 72779428254 No Longer Active Bonnie Méndez LPN Active HYDROCODONE-ACETAMINOPHEN 5-325 MG ORAL TABLET 0.5 to 1 tab by mouth every 6 hours as needed HYDROCODONE-ACETAMINOPHEN 92793649954 No Longer Active Checo Conklin MD Active ONDANSETRON 8 MG ORAL TABLET DISINTEGRATING place one tablet on tongue and allow to dissolve every 6 hours as needed for vomitting ONDANSETRON 60120879461 No Longer Active Checo Conklin MD Activ e COMPRO 25 MG RECTAL SUPPOSITORY insert or apply one garza ppository rectally as directed every 12 hours as needed for nausea PROCHLORPERAZINE 01015475138 No Longer Active Checo Conklin MD A ctive SUMATRIPTAN SUCCINATE 100 MG ORAL TABLET Take one PRN for migran e SUMATRIPTAN SUCCINATE 67165756560 No Longer Active Checo Conklin MD Active TRAVEL SICKNESS 25 MG ORAL TABLET CHEWABLE chew and sw allow one tablet every 6 hours as needed MECLIZINE HCL 77982877346 No Longer A ctive Checo Conklin MD Active BUPROPION HCL ER (SR) 100 MG ORAL TABLET EXTENDED RELE ASE 12 HOUR take one tablet by mouth one time daily for one week then take 1 two times daily BUPROPION HCL 55056747137 No Longer Active Checo gallagher MD Active TERBINAFINE HCL 250 MG ORAL TABLET take one table PO one time da moises TERBINAFINE HCL 90120909019 No Longer Active Checo Conklin MD Active METOCLOPRAMIDE HCL 10 MG ORAL TABLET take one PO tid PRN nausea METOCLOPRAMIDE HCL 86957487399 No Longer Active Checo Conklin MD Active DICLOFENAC SODIUM 75 MG ORAL TABLET DELAYED RELEASE 1 tablet by mouth twice daily PRN Knee pain DICLOFENAC SODIUM 65044259417 No Longer Active Checo Conklin MD Active LAMISIL 250 MG ORAL TABLET 1 po qd TERBINAFI NE HCL 91755157667 No Longer Active Checo Conklin MD Active REGLAN 10 MG ORAL TABLET 1 po TID PRN Nausea 3 METOCLOPRAMIDE HCL 75905252378 No Longer Active Checo Conklin MD Active CELEXA 20 MG ORAL TABLET 1 tablet by mouth daily 09/26 CITALOPRAM HYDROBROMIDE 03469047989 No Longer Active Checo Conklin MD Active AZITHROMYCIN 250 MG ORAL TABLET 2 po qd x 1 day, then 1 po q d x 4 days AZITHROMYCIN 25232282934 No Longer Active Checo Ortiz MD Active HYDROCODONE-ACETAMINOPHEN 5-325 MG ORAL TABLET 1 po q 6hr PRN Pa in HYDROCODONE-ACETAMINOPHEN 45739793103 No Longer Active Lenora Conklin MD Active PHENAZOPYRIDINE HCL 200 MG ORAL TABLET take 1 tab po TID for bladder pain PHENAZOPYRIDINE HCL 82843923792 No Longer Active Joe Conklin MD Active CIPRO 500 MG ORAL TABLET 1 tablet by mouth twice daily CIPROFLOXACIN HCL 96708083817 No Longer Active Dangelo Rangel MD Active HYDROCODONE-ACETAMINOPHEN 5-325 MG ORAL TABLET 1/2 to 1 po q 4 hours prn cough HYDROCODONE-ACETAMINOPHEN 95762050137 No Longer Activ e Dangelo Rangel MD Active BACTRIM DS 800-160 MG ORAL TABLET 1 po BID x 7 days 29/04/10 SULFAMETHOXAZOLE-TRIMETHOPRIM 57160899020 No Longer Active Checo Conklin MD Active PREDNISONE 20 MG ORAL TABLET 2 tabs daily for 3 days, 1 tab daily for 3 days, 1/2 tab daily for 2 days PREDNISONE 22697271335 No Longer Active Checo Conklin MD Active TRIAMCINOLONE ACETONIDE 0.1 % EXTERNAL OINTMENT Apply to affected areas TID for up to 2 weeks TRIAMCINOLONE ACETONIDE 76899674245 No Longer Active Checo Conklin MD Active CEFDINIR 300 MG ORAL CAPSULE by mouth twice a day 2013 CEFDINIR 56046312221 No Longer Active Dangelo Rangel MD Acti ve BUPROPION HCL ER (SMOKING DET) 150 MG ORAL TABLET EXTE NDED RELEASE 12 HOUR 1 a day for 1 week then 1 twice a day BUPROPION HCL (SMOKING DETER) 38785097966 No Longer Active Checo Conklin MD Active SIMVASTATIN 20 MG ORAL TABLET 1 po qd SIMVASTAT IN 83535009331 Active Checo Conklin MD Active CHANTIX STARTING MONTH KARTHIK 0.5 MG X 11 & 1 MG X 42 ORA L TABLET 0.5mg daily for 3 days, then 0.5mg BID for 4 days, then 1mg BID VARENICLINE TARTRATE 46735504200 No Longer Active Checo Conklin MD Activ e XANAX 0.5 MG ORAL TABLET 1 po BID PRN anxiety A LPRAZOLAM 25853163229 Active Checo Conklin MD Active CONCERTA 18 MG ORAL TABLET EXTENDED RELEASE 1 po q a.m. METHYLPHENIDATE HCL 03128463723 No Longer Active Checo Conklin MD Active AMBIEN 5 MG ORAL TABLET 1 po qHS PRN Insomnia Z OLPIDEM TARTRATE 51800404385 Active Checo Conklin MD Active TRAZODONE HCL 100 MG ORAL TABLET 0.5 to 1 po qHS PRN Insomnia 20 30/07/08 TRAZODONE HCL 41397061660 No Longer Active Checo Conklin MD Active FIORICET 325-50-40 MG TAB 1 tablet by mouth four times daily as needed [id number] 22144569984 No Longer Active Checo Conklin MD Active PHENERGAN CREAM* 25mg applied to wrist q6hr PRN Nausea PHENERGAN CREAM* No Longer Active Checo Gonzales ctive FLONASE 50 MCG/ACT NASAL SUSPENSION 1 spray each nostril am and hs FLUTICASONE PROPIONATE 67983834244 No Longer Active Checo Conklin MD Active ANTIPYRINE-BENZOCAINE 5.4-1.4 % OTIC SOLUTION 1-2 drops in affec yohannes ear BENZOCAINE-ANTIPYRINE 94130160724 No Longer Active Checo Conklin MD Active CEFDINIR 300 MG ORAL CAPSULE 1 po bid CEFDINIR 06697926586 No Longer Active Checo Conklin MD Active PREDNISONE 20 MG ORAL TABLET 2 tabs daily for 3 days, 1 tab daily for 3 days, 1/2 tab daily for 2 days PREDNISONE 32372506517 No Longer Active Checo Conklin MD Active AZITHROMYCIN 250 MG ORAL TABLET 2 po qd x 1 day, then 1 po q d x 4 days AZITHROMYCIN 61879128430 No Longer Active Checo Ortiz MD Active PREDNISONE 20 MG ORAL TABLET 2 tabs daily for 3 days, 1 tab daily for 3 days, 1/2 tab daily for 2 days PREDNISONE 57013386255 No Longer Active Checo Conklin MD Active ZITHROMAX Z-KARTHIK 250 MG ORAL TABLET 2 today, then 1 daily for 4 d ays AZITHROMYCIN 74274799620 No Longer Active Paul Hamlin MD Active FOCALIN XR 10 MG ORAL CAPSULE EXTENDED RELEASE 24 HOUR 1 po q a. m. DEXMETHYLPHENIDATE HCL 70832782729 No Longer Active Paul Hamlin MD Active PERCOCET 10-325 MG ORAL TABLET 1 tablet every 6 hours as needed for pain OXYCODONE-ACETAMINOPHEN 19637628446 No Longer Active Paul Hamlin MD Active LORTAB 5-500 MG ORAL TABLET 1/2 to 1 tablet by mouth e very 4 hours as needed for pain HYDROCODONE-ACETAMINOPHEN 98615358068 No Longer Active Checo Conklin MD Active FOCALIN XR 15 MG ORAL CAPSULE EXTENDED RELEASE 24 HOUR 1 po q a. m. DEXMETHYLPHENIDATE HCL 71836738245 No Longer Active Checo Conklin MD Active ZOFRAN ODT 4 MG ORAL TABLET DISINTEGRATING 1 po q6hr PRN Nausea ONDANSETRON 77630786411 No Longer Active Checo Conklin MD Active PERCOCET 5-325 MG ORAL TABLET 1 tablet by mouth every 6 hour s as needed OXYCODONE-ACETAMINOPHEN 55024679129 No Longer Active Checo Conklin MD Active PYRIDIUM 200 MG ORAL TABLET take 1 tab po TID prn urinary pain. PHENAZOPYRIDINE HCL 38230762551 No Longer Active Checo Joshua Active FLUCONAZOLE 150 MG ORAL TABLET take 1 tab po qday once FLUCONAZOLE 66298957680 No Longer Active Dangelo Rangel MD Acti ve CIPRO 500 MG ORAL TABLET 1 tablet by mouth twice daily CIPROFLOXACIN HCL 91218991456 No Longer Active Dangelo Rangel MD Active PYRIDIUM 200 MG ORAL TABLET take 1 tab po TID prn urinary pain. PYRIDIUM 200 MG ORAL TABLET 2565418 PHENAZOPYRIDINE HCL Inactive PERCOCET 5-325 MG ORAL TABLET 1 tablet by mouth every 6 hour s as needed PERCOCET 5-325 MG ORAL TABLET 0619004 OXYCODONE-ACETAMINOPHEN Inactive ZOFRAN ODT 4 MG ORAL TABLET DISINTEGRATING 1 po q6hr PRN Nausea ZOFRAN ODT 4 MG ORAL TABLET DISINTEGRATING 356872 ONDAN SETRON Inactive FOCALIN XR 15 MG [...] for pain PERCOCET 10-325 MG ORAL TABLET 5300123 OXYCODONE-ACETAMI NOPHEN Inactive FOCALIN XR 10 MG ORAL CAPSULE EXTENDED RELEASE 24 HOUR 1 po q a. m. FOCALIN XR 10 MG ORAL CAPSULE EXTENDED RELEASE 24 HOUR DEXMETHYLPHENIDATE HCL Inactive CEFDINIR 300 MG ORAL CAPSULE 1 po bid CEFDINI R 300 MG ORAL CAPSULE 999906 CEFDINIR Inactive ANTIPYRINE-BENZOCAINE 5.4-1.4 % OTIC SOLUTION 1-2 drops in affec yohannes ear ANTIPYRINE-BENZOCAINE 5.4-1.4 % OTIC SOLUTION BENZOCAINE-ANTIPYRINE Inactive FLONASE 50 MCG/ACT NASAL SUSPENSION 1 spray each nostril am and hs FLONASE 50 MCG/ACT NASAL SUSPENSION 2277932 FLUTICASONE PROPIONATE I nactive PHENERGAN CREAM* 25mg applied to wrist q6hr PRN Nausea PHENERGAN CREAM* Inactive FIORICET 325-50-40 MG TAB 1 tablet by mouth four times daily as needed FIORICET 325-50-40 MG TAB ACETAMINOPHEN-C AFF-BUTALBITAL Inactive TRAZODONE HCL 100 MG ORAL TABLET 0.5 to 1 po qHS PRN Insomnia 20 30/07/08 TRAZODONE HCL 100 MG ORAL TABLET 958802 TRAZODONE HCL Inactive CONCERTA 18 MG ORAL [...] cough HYDROCODONE-ACETAMINOPHEN 5-325 MG ORAL TABLET 8 86729 HYDROCODONE-ACETAMINOPHEN Inactive PHENAZOPYRIDINE HCL 200 MG ORAL TABLET take 1 tab po TID for bladder pain PHENAZOPYRIDINE HCL 200 MG ORAL TABLET 6038102 PHENAZOPYRIDINE HCL Inactive HYDROCODONE-ACETAMINOPHEN 5-325 MG ORAL TABLET 1 po q 6hr PRN Pa in HYDROCODONE-ACETAMINOPHEN 5-325 MG ORAL TABLET 044629 HYDROCODONE-ACETAMINOPHEN Inactive CELEXA 20 MG ORAL TABLET 1 tablet by mouth daily 09/26 CELEXA 20 MG ORAL TABLET 566784 CITALOPRAM HYDROBROMIDE Inactive REGLAN 10 MG ORAL TABLET 1 po TID PRN Nausea 3 REGLAN 10 MG ORAL TABLET 632382 METOCLOPRAMIDE HCL Inactive LAMISIL 250 MG ORAL TABLET 1 po qd L AMISIL 250 MG ORAL TABLET 928712 TERBINAFINE HCL Inactive DICLOFENAC SODIUM 75 MG ORAL TABLET DELAYED RELEASE 1 tablet by mouth twice daily PRN Knee pain DICLOFENAC SODIUM 75 MG ORAL TABLET DELAYED RELEASE 250027 DICLOFENAC SODIUM Inactive METOCLOPRAMIDE HCL 10 MG ORAL TABLET take one PO tid PRN nausea METOCLOPRAMIDE HCL 10 MG ORAL TABLET 531925 METOCLOPRAM ZACH HCL Inactive TERBINAFINE HCL 250 MG ORAL TABLET take one table PO one time da moises TERBINAFINE HCL 250 MG ORAL TABLET 520154 TERBINAFINE H CL Inactive BUPROPION HCL ER [...] SICKNESS 25 M G ORAL TABLET CHEWABLE 052954 MECLIZINE HCL Inactive SUMATRIPTAN SUCCINATE 100 MG ORAL TABLET Take one PRN for migran e SUMATRIPTAN SUCCINATE 100 MG ORAL TABLET 440100 SUMATRIPTAN SUCCINATE Inactive COMPRO 25 MG RECTAL SUPPOSITORY insert or apply one garza ppository rectally as directed every 12 hours as needed for nausea COMPRO 25 MG RECTAL SUPPOSITORY 654372 PROCHLORPERAZINE Inactive ONDANSETRON 8 MG ORAL TABLET DISINTEGRATING place one tablet on tongue and allow to dissolve every 6 hours as needed for vomitting ONDANSETRON 8 MG ORAL TABLET DISINTEGRATING 301104 ONDANSETRON Inactive HYDROCODONE-ACETAMINOPHEN 5-325 MG ORAL TABLET 0.5 to 1 tab by mouth every 6 hours as needed HYDROCODONE-ACETAMIN OPHEN 5-325 MG ORAL TABLET 147236 HYDROCODONE-ACETAMINOPHEN Inactive BACTRIM DS 800-160 MG ORAL TABLET 1 tab by mouth twice daily 201 11/23/03 BACTRIM DS 800-160 MG ORAL TABLET 376083 TRIMETHOPRIM-SULFAMETHOXAZOLE Inactive DIFLUCAN 150 MG ORAL TABLET 1 tablet by mouth if neede d, hold until symptoms start DIFLUCAN 150 MG ORAL TABLET 456879 FLUCONAZ OLE Inactive IBUPROFEN 800 MG ORAL TABLET 1 tab every 8 hours with food 03/20 IBUPROFEN 800 MG ORAL TABLET 968960 IBUPROFEN Krupa ctive HYDROCODONE-ACETAMINOPHEN 5-325 MG ORAL TABLET 1 tab b y mouth every 6 hours as needed HYDROCODONE-ACETAMINOPHEN 5-325 MG ORAL TABLET 941902 HYDROCODONE-ACETAMINOPHEN Inactive BACTROBAN 2 % EXTERNAL CREAM Apply to affected area BID for up to 10 days BACTROBAN 2 % EXTERNAL CREAM 728558 MUPIROCIN CA LCIUM Inactive MAGNESIUM CITRATE 1.745 GM/30ML ORAL SOLUTION 150ml po BID P RN Constipation MAGNESIUM CITRATE 1.745 GM/30ML ORAL SOLUTION 10 13773 MAGNESIUM CITRATE Inactive DIFLUCAN 150 MG ORAL TABLET 1 tablet by mouth qod 2015 DIFLUCAN 150 MG ORAL TABLET 169660 FLUCONAZOLE Inactive BACTRIM DS 800-160 MG ORAL TABLET 1 tab by mouth twice daily 201 12/19/26 BACTRIM DS 800-160 MG ORAL TABLET 777884 TRIMETHOPRIM-SULFAMETHOXAZOLE Inactive CLARITIN 10 MG ORAL TABLET 1 tablet by mouth daily as needed for allergies CLARITIN 10 MG ORAL TABLET 843045 LORATADINE I nactive FLUTICASONE PROPIONATE 50 MCG/ACT NASAL SUSPENSION 2 s prays/nostril qd PRN Congestion/Allergies FLUTICASONE PROPION ATE 50 MCG/ACT NASAL SUSPENSION 4363654 FLUTICASONE PROPIONATE Inactive MIRALAX ORAL POWDER 8.5 to 17g po qd PRN Constipation MIRALAX ORAL POWDER 507054 POLYETHYLENE GLYCOL 3350 Inactive CIPRO 500 MG ORAL TABLET 1 tablet by mouth twice daily CIPRO 500 MG ORAL TABLET 818049 CIPROFLOXACIN HCL Inactive FLUCONAZOLE 150 MG ORAL TABLET take 1 tab po qday once FLUCONAZOLE 150 MG ORAL TABLET 091846 FLUCONAZOLE Inactive ZITHROMAX Z-KARTHIK 250 MG ORAL TABLET 2 today, then 1 daily for 4 d ays ZITHROMAX Z-KARTHIK 250 MG ORAL TABLET 980184 AZITHROMYCIN Inactive PREDNISONE 20 MG ORAL TABLET 2 tabs daily for 3 days, 1 tab daily for 3 days, 1/2 tab daily for 2 days PREDNISONE 20 MG ORAL T ABLET 467849 PREDNISONE Inactive AZITHROMYCIN 250 MG ORAL TABLET 2 po qd x 1 day, then 1 po q d x 4 days AZITHROMYCIN 250 MG ORAL TABLET 979026 AZITHROMY SPARKLE Inactive PREDNISONE 20 MG ORAL TABLET 2 tabs daily for 3 days, 1 tab daily for 3 days, 1/2 tab daily for 2 days PREDNISONE 20 MG ORAL TABLET 565770 PREDNISONE Inactive CEFDINIR 300 MG ORAL CAPSULE by mouth twice a day 2013 CEFDINIR 300 MG ORAL CAPSULE 698318 CEFDINIR Inactive TRIAMCINOLONE ACETONIDE 0.1 % EXTERNAL OINTMENT Apply to affected areas TID for up to 2 weeks TRIAMCINOLONE ACETON ZACH 0.1 % EXTERNAL OINTMENT 6220965 TRIAMCINOLONE ACETONIDE Inactive PREDNISONE 20 MG ORAL TABLET 2 tabs daily for 3 days, 1 tab daily for 3 days, 1/2 tab daily for 2 days PREDNISONE 20 MG ORAL T ABLET 731451 PREDNISONE Inactive BACTRIM DS 800-160 MG ORAL TABLET 1 po BID x 7 days 29/04/10 BACTRIM DS 800-160 MG ORAL TABLET 964033 SULFAMETHOXAZOLE-TRIMETHOP RIM Inactive CIPRO 500 MG ORAL TABLET 1 tablet by mouth twice daily CIPRO 500 MG ORAL TABLET 469090 CIPROFLOXACIN HCL Inactive AZITHROMYCIN 250 MG ORAL TABLET 2 po qd x 1 day, then 1 po q d x 4 days AZITHROMYCIN 250 MG ORAL TABLET 786380 AZITHROMY SPARKLE Inactive FLAGYL 500 MG ORAL TABLET 1 tablet by mouth bid 04/13 FLAGYL 500 MG ORAL TABLET 618796 METRONIDAZOLE Inactive AZITHROMYCIN 250 MG ORAL TABLET 2 po qd x 1 day, then 1 po q d x 4 days AZITHROMYCIN 250 MG ORAL TABLET 196709 AZITHROMY SPARKLE Inactive AMOXICILLIN 500 MG ORAL CAPSULE 2 po BID x 10 days 201 01/15/27 AMOXICILLIN 500 MG ORAL CAPSULE 722416 AMOXICILLIN Inactive AMOXICILLIN 500 MG ORAL CAPSULE 2 po BID x 14 days for H. Pylori AMOXICILLIN 500 MG ORAL CAPSULE 259501 AMOXICILLIN Inactive CLARITHROMYCIN 500 MG ORAL TABLET 1 tab po BID x 14 days CLARITHROMYCIN 500 MG ORAL TABLET 585291 CLARITHROMYCIN Inacti ve FLAGYL 500 MG ORAL TABLET 1 tablet by mouth bid 08/29 FLAGYL 500 MG ORAL TABLET 580380 METRONIDAZOLE Inactive PROTONIX 40 MG ORAL TABLET DELAYED RELEASE 1 pill by m outh daily, for acid reflux PROTONIX 40 MG ORAL TABLET DELAYED RELEAS E 566735 PANTOPRAZOLE SODIUM Inactive Immunizations Vaccine Administration Date [...] ... - Chemistry sodium, serum 138 mmol/L 758-091 2156/06/27 carbon dioxide, venous blood 30.3 mmol/L 21.0-32 [...] dipstick 1+ Negative sodium, serum 139 mmol/L 104-502 4482/11/28 carbon dioxide, venous blood 26.0 mmol/L 21.0-32 [...] Negative Encounters Code Encounter Date Provider Facility CPT-75288 Level 4 Est. Patient 11:08:43 CDT Checo Conklin MD [facility] CPT-14323 [id number] Vst-Est Level III 09:37:41 CDT Dangelo Rangel MD [facility] CPT-01903 Level 4 Est. Patient 08:57:51 [employer] E[employer] HEL[employer] Checo Conklin MD [facility] CPT-33989 Level 3 Est. Patient 11:24:55 [employer] E[employer] Efren almendarez [facility] CPT-30851 Level 3 Est. Patient 13:05:44 CDT Paul Hamlin MD [facility] CPT-20466 Level 3 Est. Patient 11:29:55 CDT Checo Conklin MD [facility] CPT-23790 Level 4 Est. 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 Patient 09:11:49 CDT Efren almendarze [facility] CPT-52065 Level 2 Est. Patient 19:53:27 CDT Tanner hill MD [facility] CPT-22907 Level 3 Est. Patient 09:15:34 CDT Efren almendarez [facility] CPT-07814 Level 3 Est. 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 Patient 17:10:53 CDT Checo Conklin MD [facility] CPT-47198 Level 3 Est. Patient 15:56:22 CDT Checo Conklin MD [facility] CPT-22695 Level 3 Est. Patient 15:29:07 CDT Checo Conklin MD [facility] CPT-21532 Level 3 Est. Patient 14:38:41 CDT Checo Conklin MD [facility] CPT-03814 Level 3 Est. 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 Patient 12:29:32 CDT Dangelo arroyo MD [facility] CPT-09220 Level 3 Est. Patient 16:53:02 CDT Checo Conklin MD [facility] CPT-60871 Level 3 Est. Patient 16:37:13 CDT Checo Conklin MD [facility] CPT-83052 Level 3 Est. Patient 16:16:59 CDT Paul Hamlin MD [facility] CPT-91412 Level 3 Est. Patient 14:20:13 CDT Dangelo arroyo MD [facility] CPT-16009 Level 4 Est. Patient 11:29:33 CDT Checo Conklin MD [facility] CPT-68037 Level 3 Est. Patient 17:08:31 CDT Checo Conklin MD [facility] CPT-62196 Level 3 Est. 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 Patient 11:37:10 CDT Checo Conklin MD [facility] CPT-05758 Level 4 Est. Patient 14:07:38 CDT Checo Conklin MD [facility] CPT-18347 Level 3 Est. Patient 09:54:41 CDT Checo Conklin MD [facility] CPT-23085 Level 3 Est. Patient 11:10:54 CDT Paul Hamlin MD [facility] CPT-68827 Level 3 Est. 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 Patient 17:09:26 CDT Dangelo arroyo MD [facility] CPT-59423 Level 3 Est. Patient 16:54:37 CDT Checo Conklin MD [facility] Procedures Code Procedure Name Date Entry Date Standard Desc ription CPT-52077 Wrist, right, comp 3V - XRAY USE ONLY 09:24:31 CDT CPT-10395 Abd compl w upright - XRAY USE ONLY 1 1:36:54 [employer]OR HELPER CPT-45084 UA w micro - LAB USE ONLY 17:06:46 CDT 2015 CPT-39476 BHCG Qual - LAB USE ONLY 17:06:46 CDT 05/06 CPT-32054 CMP - LAB USE ONLY 17:06:46 CDT CPT-23693 CBC with Diff - LAB USE ONLY 17:06:45 CDT 2 CPT-69382 Venipuncture Draw Fee 17:06:45 CDT CPT-LR Lesion Removal 19:53:27 CDT CPT-OV Office Visit 11:31:28 CDT CPT-40263 Tubersol 09:39:29 CDT CPT-J2550 Phenergan 25 mg (Promethazine) 13:59:02 T[employer] E[employer]OR HEL[employer] CPT-J1885 Toradol 60 mg (Ketorolac) 13:59: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
--- OUTSIDE RECORDS SUMMARY | 2019-09-29 01:34 | XMS REPORT | Clinical Summary ---
Author Author Admin, Bethany Gonzales Organization [employer] Address Unknown Phone Unavailable Allergies, Adverse Reactions, [...] 788.41 Resolved Checo Conklin MD Urinary frequency FH BREAST CANCER ICD-V16.3 Inactive Checo Joshua [...] Generic Name NDC Status Provider Patient Instruction FLUTICASONE PROPIONATE 50 MCG/ACT NASAL SUSP 2 sprays/ nostril qd PRN Congestion/Allergies FLUTICASONE PROPIONATE [id number] Ac tive Checo Conklin MD Active MIRALAX ORAL POWD 8.5 to 17g po qd PRN Constipation POLYETHYLENE GLYCOL 3350 42941077091 Active Checo Conklin MD Active CLARITIN 10 MG TAB 1 tablet by mouth daily as needed for allergi es LORATADINE 67677811101 No Longer Active Checo Conklin MD Active BACTRIM DS 800-160 MG TAB 1 tab by mouth twice daily 2 TRIMETHOPRIM-SULFAMETHOXAZOLE 36822658403 No Longer Active Tanner Carrillo MD Active DIFLUCAN 150 MG TAB 1 tablet by mouth qod FLUCO NAZOLE 05310469321 No Longer Active Jillina Frazell DAIRY LABORATORY TECHNICIAN Active AZITHROMYCIN 250 MG TABS 2 po qd x 1 day, then 1 po qd x 4 days AZITHROMYCIN 11857888803 No Longer Active Jillina Frazell DAIRY LABORATORY TECHNICIAN Active FLAGYL 500 MG TAB 1 tablet by mouth bid METRONI DAZOLE 69456223863 No Longer Active Checo Conklin MD Active FOCALIN XR 10 MG ORAL [id number] 1 po q a.m. DEX METHYLPHENIDATE HCL 31131193082 Active Checo Conklin MD Active MAGNESIUM CITRATE 1.745 GM/30ML ORAL SOLN 150ml po BID PRN C onstipation MAGNESIUM CITRATE 35776011985 No Longer Active Checo Conklin MD Active BACTROBAN 2 % CREAM Apply to affected area BID for up to 10 days MUPIROCIN CALCIUM 19710654515 No Longer Active Checo Conklin MD Active HYDROCODONE-ACETAMINOPHEN 5-325 MG TABS 1 tab by mouth every 6 hours as needed HYDROCODONE-ACETAMINOPHEN 49698229526 No Longer Activ e Checo Conklin MD Active IBUPROFEN 800 MG TABS 1 tab every 8 hours with food 31/03/21 IBUPROFEN 55334752542 No Longer Active Checo Conklin MD Activ e DIFLUCAN 150 MG TAB 1 tablet by mouth if needed, hold until symptoms start FLUCONAZOLE 11045736303 No Longer Active Checo Ortiz MD Active BACTRIM DS 800-160 MG TAB 1 tab by mouth twice daily 2 TRIMETHOPRIM-SULFAMETHOXAZOLE 92204067989 No Longer Active Corry leong LPN Active HYDROCODONE-ACETAMINOPHEN 5-325 MG TABS 0.5 to 1 tab b y mouth every 6 hours as needed HYDROCODONE-ACETAMINOPHEN 57614373951 No Longer Active Checo Conklin MD Active ONDANSETRON [address] one tablet on tongue and allow to dissolve every 6 hours as needed for vomitting ONDANSETRO N 22401243373 No Longer Active Checo Conklin MD Active COMPRO 25 MG RECTAL SUPP insert or apply one supposit ory rectally as directed every 12 hours as needed for nausea PROCHLORPERA ZINE 50027982040 No Longer Active Checo Conklin MD Active SUMATRIPTAN SUCCINATE 100 MG ORAL TABS Take one PRN for migrane SUMATRIPTAN SUCCINATE 53917719464 No Longer Active Checo Conklin MD Active TRAVEL SICKNESS 25 MG ORAL CHEW chew and swallow one t ablet every 6 hours as needed MECLIZINE HCL 14269018241 No Longer Active Joe Conklin MD Active BUPROPION HCL ER (SR) 100 MG ORAL [id number] take one t ablet by mouth one time daily for one week then take 1 two times daily BUPROPION HCL 40538787925 No Longer Active Checo Conklin MD Activ e TERBINAFINE HCL 250 MG ORAL TABS take one table PO one time abran y TERBINAFINE HCL 28262839230 No Longer Active Checo Conklin MD Active METOCLOPRAMIDE HCL 10 MG ORAL TABS take one PO tid PRN nausea 20 29/12/14 METOCLOPRAMIDE HCL 49083456115 No Longer Active Checo Conklin MD Active DICLOFENAC SODIUM 75 MG TBEC 1 tablet by mouth twice daily P RN Knee pain DICLOFENAC SODIUM 20555206065 No Longer Active Checo Conklin MD Active LAMISIL 250 MG TAB 1 po qd TERBINAFINE HCL 548 81745733 No Longer Active Checo Conklin MD Active REGLAN 10 MG TAB 1 po TID PRN Nausea METOCLOPRA MIDE HCL 18414917401 No Longer Active Checo Conklin MD Active CELEXA 20 MG TABS 1 tablet by mouth daily CITALOPRAM HYDROBROMIDE 79961240835 No Longer Active Checo Conklin MD Activ e AZITHROMYCIN 250 MG TABS 2 po qd x 1 day, then 1 po qd x 4 days AZITHROMYCIN 10602822218 No Longer Active Checo Conklin MD Active HYDROCODONE-ACETAMINOPHEN 5-325 MG TABS 1 po q 6hr PRN Pain 2013 HYDROCODONE-ACETAMINOPHEN 05770640249 No Longer Active Lenora Conklin MD Active PHENAZOPYRIDINE HCL 200 MG TABS take 1 tab po TID for bladder pa in PHENAZOPYRIDINE HCL 46981504210 No Longer Active Checo Joshua Active CIPRO 500 MG TAB 1 tablet by mouth twice daily CIPROFLOXACIN HCL 44812949401 No Longer Active Dangelo Rangel MD Active HYDROCODONE-ACETAMINOPHEN 5-325 MG TABS 1/2 to 1 po q 4 hour s prn cough HYDROCODONE-ACETAMINOPHEN 50757207444 No Longer Activ e Dangelo Rangel MD Active BACTRIM DS 800-160 MG TABS 1 po BID x 7 days 0 SULFAMETHOXAZOLE-TRIMETHOPRIM 54557937851 No Longer Active Checo Conklin MD Active PREDNISONE 20 MG TAB 2 tabs daily for 3 days, 1 t ab daily for 3 days, 1/2 tab daily for 2 days PREDNISONE 77293870965 No Longer Active Checo Conklin MD Active TRIAMCINOLONE ACETONIDE 0.1 % OINT Apply to affected a reas TID for up to 2 weeks TRIAMCINOLONE ACETONIDE 57532171482 No Longer A ctive Checo Conklin MD Active CEFDINIR 300 MG CAPS by mouth twice a day CEFDI JAZZY 17435342497 No Longer Active Dangelo Rangel MD Active BUPROPION HCL (SMOKING DETER) 150 MG [id number] 1 a day for 1 week then 1 twice a day BUPROPION HCL (SMOKING DETER) 76133879520 No Lo nger Active Checo Conklin MD Active SIMVASTATIN 20 MG TABS 1 po qd SIMVASTATIN 3487014556 5 Active Checo Conklin MD Active CHANTIX STARTING MONTH KARTHIK 0.5 MG X 11 & 1 MG X 42 TAB S 0.5mg daily for 3 days, then 0.5mg BID for 4 days, then 1mg BID VARENICLINE TARTRATE 95692621218 No Longer Active Checo Conklin MD Activ e XANAX 0.5 MG TABS 1 po BID PRN anxiety ALPRAZOLAM 31955118032 Active Checo Conklin MD Active CONCERTA 18 MG CR-TABS 1 po q a.m. METHYLPHENID ATE HCL 98153489157 No Longer Active Checo Conklin MD Active AMBIEN 5 MG TAB 1 po qHS PRN Insomnia ZOLPIDEM TARTRATE 11879316665 Active Checo Conklin MD Active TRAZODONE HCL 100 MG TAB 0.5 to 1 po qHS PRN Insomnia TRAZODONE HCL 44098547885 No Longer Active Checo Conklin MD Acti ve FIORICET 325-50-40 MG TAB 1 tablet by mouth four times daily as needed [id number] 16756445752 No Longer Active Checo Conklin MD Active PHENERGAN CREAM* 25mg applied to wrist q6hr PRN Nausea PHENERGAN CREAM* No Longer Active Checo Conklin MD A ctive FLONASE 50 MCG/ACT SUSP 1 spray each nostril am and hs FLUTICASONE PROPIONATE 09562335855 No Longer Active Checo Conklin MD Activ e ANTIPYRINE-BENZOCAINE 5.4-1.4 % SOLN 1-2 drops in affected ear BENZOCAINE-ANTIPYRINE 87888131109 No Longer Active Checo Conklin MD Active CEFDINIR 300 MG CAPS 1 po bid CEFDINIR 23361729 120 No Longer Active Checo Conklin MD Active PREDNISONE 20 MG TAB 2 tabs daily for 3 days, 1 t ab daily for 3 days, 1/2 tab daily for 2 days PREDNISONE 42343405392 No Longer Active Aracelis Conklin MD Active AZITHROMYCIN 250 MG TABS 2 po qd x 1 day, then 1 po qd x 4 days AZITHROMYCIN 14314302638 No Longer Active Checo Conklin MD Active PREDNISONE 20 MG TAB 2 tabs daily for 3 days, 1 t ab daily for 3 days, 1/2 tab daily for 2 days PREDNISONE 43801908872 No Longer Active Checo Conklin MD Active ZITHROMAX Z-KARTHIK 250 MG TABS 2 today, then 1 daily for 4 days 201 09/18/28 AZITHROMYCIN 83974659049 No Longer Active Paul Hamlin MD Active FOCALIN XR 10 MG [id number] 1 po q a.m. D EXMETHYLPHENIDATE HCL 96867566368 No Longer Active Paul Hamlin MD Activ e PERCOCET 10-325 MG TABS 1 tablet every 6 hours as needed for pain OXYCODONE-ACETAMINOPHEN 79629300467 No Longer Active Paul Hamlin MD Active LORTAB 5 5-500 MG TABS 1/2 to 1 tablet by mouth flaquito ry 4 hours as needed for pain HYDROCODONE-ACETAMINOPHEN 02213331617 No Longer Active Checo Conklin MD Active FOCALIN XR 15 MG [id number] 1 po q a.m. D EXMETHYLPHENIDATE HCL 46394262123 No Longer Active Checo Conklin MD Activ e ZOFRAN ODT 4 MG TBDP 1 po q6hr PRN Nausea ONDAN SETRON 61410825559 No Longer Active Checo Conklin MD Active PERCOCET 5-325 MG TABS 1 tablet by mouth every 6 hours as needed OXYCODONE-ACETAMINOPHEN 22054545639 No Longer Active Checo Conklin MD Active PYRIDIUM 200 MG TABS take 1 tab po TID prn urinary pain. PHENAZOPYRIDINE HCL 69189777772 No Longer Active Checo Conklin MD Active FLUCONAZOLE 150 MG TABS take 1 tab po qday once 04/06 FLUCONAZOLE 32449021129 No Longer Active Dangelo Rangel MD Acti ve CIPRO 500 MG TAB 1 tablet by mouth twice daily CIPROFLOXACIN HCL 09512704658 No Longer Active Dangelo Rangel MD Active PYRIDIUM 200 MG TABS take 1 tab po TID prn urinary pain. 0 PYRIDIUM 200 MG TABS 7095268 PHENAZOPYRIDINE HCL Inactive PERCOCET 5-325 MG TABS 1 tablet by mouth every 6 hours as needed PERCOCET 5-325 MG TABS 9026322 OXYCODONE-ACETAMINOPHEN I nactive ZOFRAN ODT 4 MG TBDP 1 po q6hr PRN Nausea ZOFRAN ODT 4 MG TBDP 322172 ONDANSETRON Inactive FOCALIN XR 15 MG [id number] 1 po q a.m. F OCALIN XR 15 MG [id number] DEXMETHYLPHENIDATE HCL Inactive LORTAB 5 5-500 MG TABS 1/2 to 1 tablet by mouth flaquito ry 4 hours as needed for pain LORTAB 5 5-500 MG TABS HYDROCODONE-A CETAMINOPHEN Inactive PERCOCET 10-325 MG TABS 1 tablet every 6 hours as needed for pain PERCOCET 10-325 MG TABS 5524724 OXYCODONE-ACETAMINOPHEN Inactive FOCALIN XR 10 MG [id number] 1 po q a.m. F OCALIN XR 10 MG [id number] DEXMETHYLPHENIDATE HCL Inactive CEFDINIR 300 MG CAPS [...] PRN Insomnia TRAZODONE HCL 100 MG TAB 442064 TRAZODONE HCL Inactive CONCERTA 18 MG CR-TABS [...] s prn cough HYDROCODONE-ACETAMINOPHEN 5-325 MG TABS 585450 HYDROCODONE-ACETAMINOPHEN Inactive PHENAZOPYRIDINE HCL 200 MG TABS take 1 tab po TID for bladder pa in PHENAZOPYRIDINE HCL 200 MG TABS 0235821 PHENAZOPYRIDINE HCL Inactive HYDROCODONE-ACETAMINOPHEN 5-325 MG TABS 1 po q 6hr PRN Pain 2013 HYDROCODONE-ACETAMINOPHEN 5-325 MG TABS 911286 HYDROCODONE-ACETAMINOPHEN Inactive CELEXA 20 MG TABS 1 tablet by mouth daily CELEXA 20 MG TABS 445970 CITALOPRAM HYDROBROMIDE Inactive REGLAN 10 MG TAB 1 po TID PRN Nausea REGLAN 10 MG TAB 783037 METOCLOPRAMIDE HCL Inactive LAMISIL 250 MG TAB 1 po qd LAMISIL 250 MG TAB 934795 TERBINAFINE HCL Inactive DICLOFENAC SODIUM 75 MG TBEC 1 tablet by mouth twice daily P RN Knee pain DICLOFENAC SODIUM 75 MG TBEC 580453 DICLOFENAC S ODIUM Inactive METOCLOPRAMIDE HCL 10 MG ORAL TABS take one PO tid PRN nausea 20 29/12/14 METOCLOPRAMIDE HCL 10 MG ORAL TABS 102567 METOCLOPRAMID E HCL Inactive TERBINAFINE HCL 250 MG ORAL TABS take one table PO one time abran y TERBINAFINE HCL 250 MG ORAL TABS 674906 TERBINAFINE HCL Inactive BUPROPION HCL ER (SR) 100 MG ORAL [id number] take one t ablet by mouth one time daily for one week then take 1 two times daily BUPROPION HCL ER (SR) 100 MG ORAL [id number] BUPROPION HCL Inacti ve TRAVEL SICKNESS 25 MG ORAL CHEW chew and swallow one t ablet every 6 hours as needed TRAVEL SICKNESS 25 MG ORAL CHEW 060725 MECLIZINE HCL Inactive SUMATRIPTAN SUCCINATE 100 MG ORAL TABS Take one PRN for migrane SUMATRIPTAN SUCCINATE 100 MG ORAL TABS 628457 SUMATRIPT AN SUCCINATE Inactive COMPRO 25 MG RECTAL SUPP insert or apply one supposit ory rectally as directed every 12 hours as needed for nausea COMP RO 25 MG RECTAL SUPP 310946 PROCHLORPERAZINE Inactive ONDANSETRON [address] one tablet on tongue and allow to dissolve every 6 hours as needed for vomitting ON DANSETRON 8 MG ORAL TBDP 773269 ONDANSETRON Inactive HYDROCODONE-ACETAMINOPHEN 5-325 MG TABS 0.5 to 1 tab b y mouth every 6 hours as needed HYDROCODONE-ACETAMINOPHEN 5-325 MG TABS 8 86245 HYDROCODONE-ACETAMINOPHEN Inactive BACTRIM DS 800-160 MG TAB 1 tab by mouth twice daily 2 BACTRIM DS 800-160 MG TAB 124069 TRIMETHOPRIM-SULFAMETHOXAZOLE Inac tive DIFLUCAN 150 MG TAB 1 tablet by mouth if needed, hold until symptoms start DIFLUCAN 150 MG TAB 618924 FLUCONAZOLE Inactive IBUPROFEN 800 MG TABS 1 tab every 8 hours with food 31/03/21 IBUPROFEN 800 MG TABS 394585 IBUPROFEN Inactive HYDROCODONE-ACETAMINOPHEN 5-325 MG TABS 1 tab by mouth every 6 hours as needed HYDROCODONE-ACETAMINOPHEN 5-325 MG TABS 609953 HYDROCODONE-ACETAMINOPHEN Inactive BACTROBAN 2 % CREAM Apply to affected area BID for up to 10 days BACTROBAN 2 % CREAM 608132 MUPIROCIN CALCIUM Inactive MAGNESIUM CITRATE 1.745 GM/30ML ORAL SOLN 150ml po BID PRN C onstipation MAGNESIUM CITRATE 1.745 GM/30ML ORAL SOLN 898113 0 MAGNESIUM CITRATE Inactive DIFLUCAN 150 MG TAB 1 tablet by mouth qod DIFLUCAN 150 MG TAB 023678 FLUCONAZOLE Inactive BACTRIM DS 800-160 MG TAB 1 tab by mouth twice daily 2 BACTRIM DS 800-160 MG TAB 542283 TRIMETHOPRIM-SULFAMETHOXAZOLE Inac tive CLARITIN 10 MG TAB 1 tablet by mouth daily as needed for allergi es CLARITIN 10 MG TAB 443329 LORATADINE Inactive CIPRO 500 MG TAB 1 tablet by mouth twice daily CIPRO 500 MG TAB 594002 CIPROFLOXACIN HCL Inactive FLUCONAZOLE 150 MG TABS take 1 tab po qday once 04/06 FLUCONAZOLE 150 MG TABS 720745 FLUCONAZOLE Inactive ZITHROMAX Z-KARTHIK 250 MG TABS 2 today, then 1 daily for 4 days 201 09/18/28 ZITHROMAX Z-KARTHIK 250 MG TABS 6160986 AZITHROMYCIN Inac tive PREDNISONE 20 MG TAB 2 tabs daily for 3 days, 1 t ab daily for 3 days, 1/2 tab daily for 2 days PREDNISONE 20 MG TAB 686738 PREDNISON E Inactive AZITHROMYCIN 250 MG TABS 2 po qd x 1 day, then 1 po qd x 4 days AZITHROMYCIN 250 MG TABS 2142398 AZITHROMYCIN Inactiv e PREDNISONE 20 MG TAB 2 tabs daily for 3 days, 1 t ab daily for 3 days, 1/2 tab daily for 2 days PREDNISONE 20 MG TAB 253977 PREDNISON E Inactive CEFDINIR 300 MG CAPS by mouth twice a day CEFDINIR 300 MG CAPS 978369 CEFDINIR Inactive TRIAMCINOLONE ACETONIDE 0.1 % OINT Apply to affected a reas TID for up to 2 weeks TRIAMCINOLONE ACETONIDE 0.1 % OINT 301419 6 TRIAMCINOLONE ACETONIDE Inactive PREDNISONE 20 MG TAB 2 tabs daily for 3 days, 1 t ab daily for 3 days, 1/2 tab daily for 2 days PREDNISONE 20 MG TAB 030734 PREDNISON E Inactive BACTRIM DS 800-160 MG TABS 1 po BID x 7 days 0 BACTRIM DS 800-160 MG TABS 876893 SULFAMETHOXAZOLE-TRIMETHOPRIM Inactive CIPRO 500 MG TAB 1 tablet by mouth twice daily CIPRO 500 MG TAB 083434 CIPROFLOXACIN HCL Inactive AZITHROMYCIN 250 MG TABS 2 po qd x 1 day, then 1 po qd x 4 days AZITHROMYCIN 250 MG TABS 3737522 AZITHROMYCIN Inactiv e FLAGYL 500 MG TAB 1 tablet by mouth bid FLAGYL 500 MG TAB 690224 METRONIDAZOLE Inactive AZITHROMYCIN 250 MG TABS 2 po qd x 1 day, then 1 po qd x 4 days AZITHROMYCIN 250 MG TABS 7095602 AZITHROMYCIN Inactiv e Immunizations Vaccine Administration Date Value Standard Michael cription TB-PPD (tuberculin purified protein derivative), intra dermal administration Tubersol Vital Signs Date Name Value Unit Range Description blood pressure, diastolic - 8462-4 68 mm[Hg] [...] Report: CBC W/DIFF, Comp. Metabolic Panel, Qual [facility] [place] - Chemistry sodium, serum 139 mmol/L 323-318 0298/10/21 carbon dioxide, venous blood 33.5 mmol/L 21.0-32 [...] Report: CBC W/DIFF, Comp. Metabolic Panel, Qual [facility] [place] - Hematology leukocyte count, [...] 248 10^3/MM^3 10*3/mm3 142-424 Lab Report: Chlamydia/GC APTIMA/03399 - Lab chlamydia DNA probe NOT DETECTED NOT DETECTED Lab Report: Chlamydia/GC APTIMA/07831 - Microbiology Neisseria gonorrhoeae DNA probe NOT DETECTED NO T DETECTED Lab Report: Comp. Metabolic Panel, Thyro id Stimulating Hormone (L), Eryt ... - Chemistry sodium, serum 137 mmol/L 013-855 1801/05/27 carbon dioxide, venous blood 29.1 mmol/L 21.0-32 [...] 5.0-8.5 Encounters Code Encounter Date Provider Facility CPT-45299 Level 4 Est. Patient 16:06:48 LAMINA SEARCHER Checo Conklin MD [facility] CPT-89731 Level 3 Est. Patient 09:11:49 CDT Efren almendarez [facility] CPT-70544 Level 2 Est. Patient 19:53:27 CDT Tanner hill MD [facility] CPT-08323 Level 3 Est. Patient 09:15:34 CDT Efren almendarez [facility] CPT-46231 Level 3 Est. Patient 11:28:51 LAMINA SEARCHER Efren almendarez [facility] CPT-42105 Level 4 Est. Patient 13:55:46 LAMINA SEARCHER Checo Conklin MD [facility] CPT-52275 Level 4 Est. Patient 17:10:53 CDT Checo Conklin MD [facility] CPT-69715 Level 3 Est. Patient 15:56:22 CDT Checo Conklin MD [facility] CPT-17465 Level 3 Est. Patient 15:29:07 CDT Checo Conklin MD [facility] CPT-04887 Level 3 Est. Patient 14:38:41 CDT Checo Conklin MD [facility] CPT-06277 Level 3 Est. Patient 15:22:03 LAMINA SEARCHER Thomas reynolds DO [facility] CPT-50215 Level 3 Est. Patient 13:34:17 LAMINA SEARCHER Checo Conklin MD [facility] CPT-35117 Level 3 Est. Patient 12:29:32 CDT Dangelo arroyo MD [facility] CPT-38378 Level 3 Est. Patient 16:53:02 CDT Checo Conklin MD [facility] CPT-08425 Level 3 Est. Patient 16:37:13 CDT Checo Conklin MD [facility] CPT-02693 Level 3 Est. Patient 16:16:59 CDT Paul Hamlin MD [facility] CPT-97095 Level 3 Est. Patient 14:20:13 CDT Dangelo arroyo MD [facility] CPT-36808 Level 4 Est. Patient 11:29:33 CDT Checo Conklin MD [facility] CPT-69333 Level 3 Est. Patient 17:08:31 CDT Checo Conklin MD [facility] CPT-79560 Level 3 Est. Patient 16:50:42 LAMINA SEARCHER Checo Conklin MD [facility] CPT-69184 Level 4 Est. Patient 09:26:08 LAMINA SEARCHER Checo Conklin MD [facility] CPT-32385 Level 3 Est. Patient 11:37:10 CDT Checo Conklin MD [facility] CPT-20247 Level 4 Est. Patient 14:07:38 CDT Checo Conklin MD [facility] CPT-45873 Level 3 Est. Patient 09:54:41 CDT Checo Conklin MD [facility] CPT-80551 Level 3 Est. Patient 11:10:54 CDT Paul Hamlin MD [facility] CPT-94259 Level 3 Est. Patient 14:16:56 LAMINA SEARCHER Checo Conklin MD [facility] CPT-48186 Level 3 Est. Patient 11:04:11 LAMINA SEARCHER Checo Conklin MD [facility] CPT-77070 Level 3 Est. Patient 17:09:26 CDT Dangelo arroyo MD [facility] CPT-06929 Level 3 Est. Patient 16:54:37 CDT Checo Conklin MD [facility] Procedures Code Procedure Name Date Entry Date Standard Desc ription CPT-17006 UA w micro - LAB USE ONLY 17:06:46 CDT 2015 CPT-52495 [facility] Qual - LAB USE ONLY 17:06:46 CDT 05/06 CPT-84915 CMP - LAB USE ONLY 17:06:46 CDT CPT-88190 CBC with Diff - LAB USE ONLY 17:06:45 CDT 2 CPT-94001 Venipuncture Draw Fee 17:06:45 CDT CPT-LR Lesion Removal 19:53:27 CDT CPT-OV Office Visit 11:31:28 CDT CPT-29605 Tubersol 09:39:29 CDT CPT-J2550 Phenergan 25 mg (Promethazine) 13:59:02 LAMINA SEARCHER CPT-J1885 Toradol 60 mg (Ketorolac) 13:59:02 LAMINA SEARCHER 2012
--- OUTSIDE RECORDS SUMMARY | 2019-09-29 01:35 | XMS REPORT | Clinical Summary ---
Author Author Admin, Bethany Ayala [facility] Address Unknown Phone Unavailable Allergies, Adverse [...] TABLET 1 po qd PAR OXETINE HCL 62155011787 Active Checo Conklin MD Active MIRALAX ORAL POWDER 8.5 to 17g po qd PRN Constipation POLYETHYLENE GLYCOL 3350 [id number] No Longer Active Checo Conklin MD Active PROTONIX 40 MG ORAL TABLET DELAYED RELEASE 1 pill by m outh daily, for acid reflux PANTOPRAZOLE SODIUM 63691742729 No Longer Activ e Corry Méndez LPN Active FLAGYL 500 MG ORAL TABLET 1 tablet by mouth bid 08/29 METRONIDAZOLE 27026725592 No Longer Active Corry Méndez LPN Active CLARITHROMYCIN 500 MG ORAL TABLET 1 tab po BID x 14 days CLARITHROMYCIN 64947243588 No Longer Active Corry Méndez LPN Active AMOXICILLIN 500 MG ORAL CAPSULE 2 po BID x 14 days for H. Pylori AMOXICILLIN 37019649156 No Longer Active Corry Méndez LPN Active FLUTICASONE PROPIONATE 50 MCG/ACT NASAL SUSPENSION 2 s prays/nostril qd PRN Congestion/Allergies FLUTICASONE PROPIONATE 1932800835 9 No Longer Active Checo Conklin MD Active AMOXICILLIN 500 MG ORAL CAPSULE 2 po BID x 10 days 201 01/15/27 AMOXICILLIN 36161612643 No Longer Active Checo Conklin MD Activ e CLARITIN 10 MG ORAL TABLET 1 tablet by mouth daily as needed for allergies LORATADINE 19616808886 No Longer Active Checo Ortiz MD Active BACTRIM DS 800-160 MG ORAL TABLET 1 tab by mouth twice daily 201 12/19/26 TRIMETHOPRIM-SULFAMETHOXAZOLE 72315799095 No Longer Active Ragini Carrillo MD Active DIFLUCAN 150 MG ORAL TABLET 1 tablet by mouth qod 2015 FLUCONAZOLE 55960218733 No Longer Active Efren Medle APRN Act mike AZITHROMYCIN 250 MG ORAL TABLET 2 po qd x 1 day, then 1 po q d x 4 days AZITHROMYCIN 01845798177 No Longer Active Efren flores APRN Active FLAGYL 500 MG ORAL TABLET 1 tablet by mouth bid 04/13 METRONIDAZOLE 10380418009 No Longer Active Checo Conklin MD Acti ve FOCALIN XR 10 MG ORAL CAPSULE EXTENDED RELEASE 24 HOUR 1 po q a.m. DEXMETHYLPHENIDATE HCL 88830277489 Active Checo Conklin MD Active MAGNESIUM CITRATE 1.745 GM/30ML ORAL SOLUTION 150ml po BID P RN Constipation MAGNESIUM CITRATE 67910082688 No Longer Active Checo Conklin MD Active BACTROBAN 2 % EXTERNAL CREAM Apply to affected area BID for up to 10 days MUPIROCIN CALCIUM 27104264077 No Longer Active Checo Conklin MD Active HYDROCODONE-ACETAMINOPHEN 5-325 MG ORAL TABLET 1 tab b y mouth every 6 hours as needed HYDROCODONE-ACETAMINOPHEN 18203092035 No Longer Active Checo Conklin MD Active IBUPROFEN 800 MG ORAL TABLET 1 tab every 8 hours with food 03/20 IBUPROFEN 24584559387 No Longer Active Checo Conklin MD Active DIFLUCAN 150 MG ORAL TABLET 1 tablet by mouth if neede d, hold until symptoms start FLUCONAZOLE 89730185303 No Longer Active Checo Conklin MD Active BACTRIM DS 800-160 MG ORAL TABLET 1 tab by mouth twice daily 201 11/23/03 TRIMETHOPRIM-SULFAMETHOXAZOLE 40123744445 No Longer Active K bernice Méndez LPN Active HYDROCODONE-ACETAMINOPHEN 5-325 MG ORAL TABLET 0.5 to 1 tab by mouth every 6 hours as needed HYDROCODONE-ACETAMINOPHEN 01783589101 No Longer Active Checo Conklin MD Active ONDANSETRON 8 MG ORAL TABLET DISINTEGRATING place one tablet on tongue and allow to dissolve every 6 hours as needed for vomitting ONDANSETRON 46539378592 No Longer Active Checo Conklin MD Activ e COMPRO 25 MG RECTAL SUPPOSITORY insert or apply one garza ppository rectally as directed every 12 hours as needed for nausea PROCHLORPERAZINE 62633752753 No Longer Active Checo Conklin MD A ctive SUMATRIPTAN SUCCINATE 100 MG ORAL TABLET Take one PRN for migran e SUMATRIPTAN SUCCINATE 76979656902 No Longer Active Checo Conklin MD Active TRAVEL SICKNESS 25 MG ORAL TABLET CHEWABLE chew and sw allow one tablet every 6 hours as needed MECLIZINE HCL 24094625572 No Longer A ctive Checo Conklin MD Active BUPROPION HCL ER (SR) 100 MG ORAL TABLET EXTENDED RELE ASE 12 HOUR take one tablet by mouth one time daily for one week then take 1 two times daily BUPROPION HCL 14084272754 No Longer Active Checo gallagher MD Active TERBINAFINE HCL 250 MG ORAL TABLET take one table PO one time da moises TERBINAFINE HCL 34753860163 No Longer Active Checo Conklin MD Active METOCLOPRAMIDE HCL 10 MG ORAL TABLET take one PO tid PRN nausea METOCLOPRAMIDE HCL 58946114948 No Longer Active Checo Conklin MD Active DICLOFENAC SODIUM 75 MG ORAL TABLET DELAYED RELEASE 1 tablet by mouth twice daily PRN Knee pain DICLOFENAC SODIUM 66667821391 No Longer Active Checo Conklin MD Active LAMISIL 250 MG ORAL TABLET 1 po qd TERBINAFI NE HCL 35034227597 No Longer Active Checo Conklin MD Active REGLAN 10 MG ORAL TABLET 1 po TID PRN Nausea 3 METOCLOPRAMIDE HCL 25961385569 No Longer Active Checo Conklin MD Active CELEXA 20 MG ORAL TABLET 1 tablet by mouth daily 09/26 CITALOPRAM HYDROBROMIDE 35985337328 No Longer Active Checo Conklin MD Active AZITHROMYCIN 250 MG ORAL TABLET 2 po qd x 1 day, then 1 po q d x 4 days AZITHROMYCIN 85913713747 No Longer Active Checo Ortiz MD Active HYDROCODONE-ACETAMINOPHEN 5-325 MG ORAL TABLET 1 po q 6hr PRN Pa in HYDROCODONE-ACETAMINOPHEN 79158842267 No Longer Active Lenora Conklin MD Active PHENAZOPYRIDINE HCL 200 MG ORAL TABLET take 1 tab po TID for bladder pain PHENAZOPYRIDINE HCL 56345294139 No Longer Active Joe Conklin MD Active CIPRO 500 MG ORAL TABLET 1 tablet by mouth twice daily CIPROFLOXACIN HCL 88429586646 No Longer Active Dangelo Rangel MD Active HYDROCODONE-ACETAMINOPHEN 5-325 MG ORAL TABLET 1/2 to 1 po q 4 hours prn cough HYDROCODONE-ACETAMINOPHEN 45551940306 No Longer Activ e Dangelo Rangel MD Active BACTRIM DS 800-160 MG ORAL TABLET 1 po BID x 7 days 29/04/10 SULFAMETHOXAZOLE-TRIMETHOPRIM 95520636539 No Longer Active Checo Conklin MD Active PREDNISONE 20 MG ORAL TABLET 2 tabs daily for 3 days, 1 tab daily for 3 days, 1/2 tab daily for 2 days PREDNISONE 13565347770 No Longer Active Checo Conklin MD Active TRIAMCINOLONE ACETONIDE 0.1 % EXTERNAL OINTMENT Apply to affected areas TID for up to 2 weeks TRIAMCINOLONE ACETONIDE 72119140613 No Longer Active Checo Conklin MD Active CEFDINIR 300 MG ORAL CAPSULE by mouth twice a day 2013 CEFDINIR 43372619016 No Longer Active Dangelo Rangel MD Acti ve BUPROPION HCL ER (SMOKING DET) 150 MG ORAL TABLET EXTE NDED RELEASE 12 HOUR 1 a day for 1 week then 1 twice a day BUPROPION HCL (SMOKING DETER) 66977128134 No Longer Active Checo Conklin MD Active SIMVASTATIN 20 MG ORAL TABLET 1 po qd SIMVASTAT IN 62722185627 Active Checo Conklin MD Active CHANTIX STARTING MONTH KARTHIK 0.5 MG X 11 & 1 MG X 42 ORA L TABLET 0.5mg daily for 3 days, then 0.5mg BID for 4 days, then 1mg BID VARENICLINE TARTRATE 02277120376 No Longer Active Checo Conklin MD Activ e XANAX 0.5 MG ORAL TABLET 1 po BID PRN anxiety A LPRAZOLAM 39890833260 Active Checo Conklin MD Active CONCERTA 18 MG ORAL TABLET EXTENDED RELEASE 1 po q a.m. METHYLPHENIDATE HCL 65766192008 No Longer Active Checo Conklin MD Active AMBIEN 5 MG ORAL TABLET 1 po qHS PRN Insomnia Z OLPIDEM TARTRATE 18818963727 Active Checo Conklin MD Active TRAZODONE HCL 100 MG ORAL TABLET 0.5 to 1 po qHS PRN Insomnia 20 30/07/08 TRAZODONE HCL 91948525701 No Longer Active Checo Conklin MD Active FIORICET 325-50-40 MG TAB 1 tablet by mouth four times daily as needed [id number] 57293177925 No Longer Active Checo Conklin MD Active PHENERGAN CREAM* 25mg applied to wrist q6hr PRN Nausea PHENERGAN CREAM* No Longer Active Checo Conklin MD A ctive FLONASE 50 MCG/ACT NASAL SUSPENSION 1 spray each nostril am and hs FLUTICASONE PROPIONATE 68037948239 No Longer Active Checo Conklin MD Active ANTIPYRINE-BENZOCAINE 5.4-1.4 % OTIC SOLUTION 1-2 drops in affec yohannes ear BENZOCAINE-ANTIPYRINE 94533809092 No Longer Active Checo Conklin MD Active CEFDINIR 300 MG ORAL CAPSULE 1 po bid CEFDINIR 08498472901 No Longer Active Checo Conklin MD Active PREDNISONE 20 MG ORAL TABLET 2 tabs daily for 3 days, 1 tab daily for 3 days, 1/2 tab daily for 2 days PREDNISONE 67639504558 No Longer Active Checo Conklin MD Active AZITHROMYCIN 250 MG ORAL TABLET 2 po qd x 1 day, then 1 po q d x 4 days AZITHROMYCIN 06927156514 No Longer Active Checo Ortiz MD Active PREDNISONE 20 MG ORAL TABLET 2 tabs daily for 3 days, 1 tab daily for 3 days, 1/2 tab daily for 2 days PREDNISONE 62310896807 No Longer Active Checo Conklin MD Active ZITHROMAX Z-KARTHIK 250 MG ORAL TABLET 2 today, then 1 daily for 4 d ays AZITHROMYCIN 89205602548 No Longer Active Paul Hamlin MD Active FOCALIN XR 10 MG ORAL CAPSULE EXTENDED RELEASE 24 HOUR 1 po q a. m. DEXMETHYLPHENIDATE HCL 91058266913 No Longer Active Paul Hamlin MD Active PERCOCET 10-325 MG ORAL TABLET 1 tablet every 6 hours as needed for pain OXYCODONE-ACETAMINOPHEN 54536837939 No Longer Active Paul Hamlin MD Active LORTAB 5-500 MG ORAL TABLET 1/2 to 1 tablet by mouth e very 4 hours as needed for pain HYDROCODONE-ACETAMINOPHEN 39782293120 No Longer Active Checo Conklin MD Active FOCALIN XR 15 MG ORAL CAPSULE EXTENDED RELEASE 24 HOUR 1 po q a. m. DEXMETHYLPHENIDATE HCL 66482232092 No Longer Active Checo Conklin MD Active ZOFRAN ODT 4 MG ORAL TABLET DISINTEGRATING 1 po q6hr PRN Nausea ONDANSETRON 88997527088 No Longer Active Checo Conklin MD Active PERCOCET 5-325 MG ORAL TABLET 1 tablet by mouth every 6 hour s as needed OXYCODONE-ACETAMINOPHEN 93591971323 No Longer Active Checo Conklin MD Active PYRIDIUM 200 MG ORAL TABLET take 1 tab po TID prn urinary pain. PHENAZOPYRIDINE HCL 23078080224 No Longer Active Checo Joshua Active FLUCONAZOLE 150 MG ORAL TABLET take 1 tab po qday once FLUCONAZOLE 78969861676 No Longer Active Dangelo Rangel MD Acti ve CIPRO 500 MG ORAL TABLET 1 tablet by mouth twice daily CIPROFLOXACIN HCL 41772296463 No Longer Active Dangelo Rangel MD Active PYRIDIUM 200 MG ORAL TABLET take 1 tab po TID prn urinary pain. PYRIDIUM 200 MG ORAL TABLET 8054119 PHENAZOPYRIDINE HCL Inactive PERCOCET 5-325 MG ORAL TABLET 1 tablet by mouth every 6 hour s as needed PERCOCET 5-325 MG ORAL TABLET 1637871 OXYCODONE-ACETAMINOPHEN Inactive ZOFRAN ODT 4 MG ORAL TABLET DISINTEGRATING 1 po q6hr PRN Nausea ZOFRAN ODT 4 MG ORAL TABLET DISINTEGRATING 602343 ONDAN SETRON Inactive FOCALIN XR 15 MG [...] for pain PERCOCET 10-325 MG ORAL TABLET 5508899 OXYCODONE-ACETAMI NOPHEN Inactive FOCALIN XR 10 MG ORAL CAPSULE EXTENDED RELEASE 24 HOUR 1 po q a. m. FOCALIN XR 10 MG ORAL CAPSULE EXTENDED RELEASE 24 HOUR DEXMETHYLPHENIDATE HCL Inactive CEFDINIR 300 MG ORAL CAPSULE 1 po bid CEFDINI R 300 MG ORAL CAPSULE 182470 CEFDINIR Inactive ANTIPYRINE-BENZOCAINE 5.4-1.4 % OTIC SOLUTION 1-2 drops in affec yohannes ear ANTIPYRINE-BENZOCAINE 5.4-1.4 % OTIC SOLUTION 158809 BENZOCAINE-ANTIPYRINE Inactive FLONASE 50 MCG/ACT NASAL SUSPENSION 1 spray each nostril am and hs FLONASE 50 MCG/ACT NASAL SUSPENSION 1173887 FLUTICASONE PROPIONATE I nactive PHENERGAN CREAM* 25mg applied to wrist q6hr PRN Nausea PHENERGAN CREAM* Inactive FIORICET 325-50-40 MG TAB 1 tablet by mouth four times daily as needed FIORICET 325-50-40 MG TAB ACETAMINOPHEN-C AFF-BUTALBITAL Inactive TRAZODONE HCL 100 MG ORAL TABLET 0.5 to 1 po qHS PRN Insomnia 20 30/07/08 TRAZODONE HCL 100 MG ORAL TABLET 680931 TRAZODONE HCL Inactive CONCERTA 18 MG ORAL [...] cough HYDROCODONE-ACETAMINOPHEN 5-325 MG ORAL TABLET 8 67697 HYDROCODONE-ACETAMINOPHEN Inactive PHENAZOPYRIDINE HCL 200 MG ORAL TABLET take 1 tab po TID for bladder pain PHENAZOPYRIDINE HCL 200 MG ORAL TABLET 3971339 PHENAZOPYRIDINE HCL Inactive HYDROCODONE-ACETAMINOPHEN 5-325 MG ORAL TABLET 1 po q 6hr PRN Pa in HYDROCODONE-ACETAMINOPHEN 5-325 MG ORAL TABLET 402794 HYDROCODONE-ACETAMINOPHEN Inactive CELEXA 20 MG ORAL TABLET 1 tablet by mouth daily 09/26 CELEXA 20 MG ORAL TABLET 210597 CITALOPRAM HYDROBROMIDE Inactive REGLAN 10 MG ORAL TABLET 1 po TID PRN Nausea 3 REGLAN 10 MG ORAL TABLET 539713 METOCLOPRAMIDE HCL Inactive LAMISIL 250 MG ORAL TABLET 1 po qd L AMISIL 250 MG ORAL TABLET 348042 TERBINAFINE HCL Inactive DICLOFENAC SODIUM 75 MG ORAL TABLET DELAYED RELEASE 1 tablet by mouth twice daily PRN Knee pain DICLOFENAC SODIUM 75 MG ORAL TABLET DELAYED RELEASE 320612 DICLOFENAC SODIUM Inactive METOCLOPRAMIDE HCL 10 MG ORAL TABLET take one PO tid PRN nausea METOCLOPRAMIDE HCL 10 MG ORAL TABLET 444224 METOCLOPRAM ZACH HCL Inactive TERBINAFINE HCL 250 MG ORAL TABLET take one table PO one time da moises TERBINAFINE HCL 250 MG ORAL TABLET 354644 TERBINAFINE H CL Inactive BUPROPION HCL ER [...] SICKNESS 25 M G ORAL TABLET CHEWABLE 137772 MECLIZINE HCL Inactive SUMATRIPTAN SUCCINATE 100 MG ORAL TABLET Take one PRN for migran e SUMATRIPTAN SUCCINATE 100 MG ORAL TABLET 538141 SUMATRIPTAN SUCCINATE Inactive COMPRO 25 MG RECTAL SUPPOSITORY insert or apply one garza ppository rectally as directed every 12 hours as needed for nausea COMPRO 25 MG RECTAL SUPPOSITORY 244253 PROCHLORPERAZINE Inactive ONDANSETRON 8 MG ORAL TABLET DISINTEGRATING place one tablet on tongue and allow to dissolve every 6 hours as needed for vomitting ONDANSETRON 8 MG ORAL TABLET DISINTEGRATING 730705 ONDANSETRON Inactive HYDROCODONE-ACETAMINOPHEN 5-325 MG ORAL TABLET 0.5 to 1 tab by mouth every 6 hours as needed HYDROCODONE-ACETAMIN OPHEN 5-325 MG ORAL TABLET 539217 HYDROCODONE-ACETAMINOPHEN Inactive BACTRIM DS 800-160 MG ORAL TABLET 1 tab by mouth twice daily 201 11/23/03 BACTRIM DS 800-160 MG ORAL TABLET 045242 TRIMETHOPRIM-SULFAMETHOXAZOLE Inactive DIFLUCAN 150 MG ORAL TABLET 1 tablet by mouth if neede d, hold until symptoms start DIFLUCAN 150 MG ORAL TABLET 19760325 FLUCONAZ OLE Inactive IBUPROFEN 800 MG ORAL TABLET 1 tab every 8 hours with food 03/20 IBUPROFEN 800 MG ORAL TABLET IBUPROFEN [place] ctive HYDROCODONE-ACETAMINOPHEN 5-325 MG ORAL TABLET 1 tab b y mouth every 6 hours as needed HYDROCODONE-ACETAMINOPHEN 5-325 MG ORAL TABLET 477952 HYDROCODONE-ACETAMINOPHEN Inactive BACTROBAN 2 % EXTERNAL CREAM Apply to affected area BID for up to 10 days BACTROBAN 2 % EXTERNAL CREAM 634035 MUPIROCIN CA LCIUM Inactive MAGNESIUM CITRATE 1.745 GM/30ML ORAL SOLUTION 150ml po BID P RN Constipation MAGNESIUM CITRATE 1.745 GM/30ML ORAL SOLUTION 10 92588 MAGNESIUM CITRATE Inactive DIFLUCAN 150 MG ORAL TABLET 1 tablet by mouth qod 2015 DIFLUCAN 150 MG ORAL TABLET 468017 FLUCONAZOLE Inactive BACTRIM DS 800-160 MG ORAL TABLET 1 tab by mouth twice daily 201 12/19/26 BACTRIM DS 800-160 MG ORAL TABLET 053315 TRIMETHOPRIM-SULFAMETHOXAZOLE Inactive CLARITIN 10 MG ORAL TABLET 1 tablet by mouth daily as needed for allergies CLARITIN 10 MG ORAL TABLET 437119 LORATADINE I nactive FLUTICASONE PROPIONATE 50 MCG/ACT NASAL SUSPENSION 2 s prays/nostril qd PRN Congestion/Allergies FLUTICASONE PROPION ATE 50 MCG/ACT NASAL SUSPENSION 6468527 FLUTICASONE PROPIONATE Inactive MIRALAX ORAL POWDER 8.5 to 17g po qd PRN Constipation MIRALAX ORAL POWDER 320327 POLYETHYLENE GLYCOL 3350 Inactive CIPRO 500 MG ORAL TABLET 1 tablet by mouth twice daily CIPRO 500 MG ORAL TABLET 159531 CIPROFLOXACIN HCL Inactive FLUCONAZOLE 150 MG ORAL TABLET take 1 tab po qday once FLUCONAZOLE 150 MG ORAL TABLET 665892 FLUCONAZOLE Inactive ZITHROMAX Z-KARTHIK 250 MG ORAL TABLET 2 today, then 1 daily for 4 d ays ZITHROMAX Z-KARTHIK 250 MG ORAL TABLET 905011 AZITHROMYCIN Inactive PREDNISONE 20 MG ORAL TABLET 2 tabs daily for 3 days, 1 tab daily for 3 days, 1/2 tab daily for 2 days PREDNISONE 20 MG ORAL T ABLET 911864 PREDNISONE Inactive AZITHROMYCIN 250 MG ORAL TABLET 2 po qd x 1 day, then 1 po q d x 4 days AZITHROMYCIN 250 MG ORAL TABLET 042239 AZITHROMY SPARKLE Inactive PREDNISONE 20 MG ORAL TABLET 2 tabs daily for 3 days, 1 tab daily for 3 days, 1/2 tab daily for 2 days PREDNISONE 20 MG ORAL TABLET 076923 PREDNISONE Inactive CEFDINIR 300 MG ORAL CAPSULE by mouth twice a day 2013 CEFDINIR 300 MG ORAL CAPSULE 847178 CEFDINIR Inactive TRIAMCINOLONE ACETONIDE 0.1 % EXTERNAL OINTMENT Apply to affected areas TID for up to 2 weeks TRIAMCINOLONE ACETON ZACH 0.1 % EXTERNAL OINTMENT 4599661 TRIAMCINOLONE ACETONIDE Inactive PREDNISONE 20 MG ORAL TABLET 2 tabs daily for 3 days, 1 tab daily for 3 days, 1/2 tab daily for 2 days PREDNISONE 20 MG ORAL T ABLET 447530 PREDNISONE Inactive BACTRIM DS 800-160 MG ORAL TABLET 1 po BID x 7 days 29/04/10 BACTRIM DS 800-160 MG ORAL TABLET 890272 SULFAMETHOXAZOLE-TRIMETHOP RIM Inactive CIPRO 500 MG ORAL TABLET 1 tablet by mouth twice daily CIPRO 500 MG ORAL TABLET 213052 CIPROFLOXACIN HCL Inactive AZITHROMYCIN 250 MG ORAL TABLET 2 po qd x 1 day, then 1 po q d x 4 days AZITHROMYCIN 250 MG ORAL TABLET 517784 AZITHROMY SPARKLE Inactive FLAGYL 500 MG ORAL TABLET 1 tablet by mouth bid 04/13 FLAGYL 500 MG ORAL TABLET 718945 METRONIDAZOLE Inactive AZITHROMYCIN 250 MG ORAL TABLET 2 po qd x 1 day, then 1 po q d x 4 days AZITHROMYCIN 250 MG ORAL TABLET 272013 AZITHROMY SPARKLE Inactive AMOXICILLIN 500 MG ORAL CAPSULE 2 po BID x 10 days 201 01/15/27 AMOXICILLIN 500 MG ORAL CAPSULE 414239 AMOXICILLIN Inactive AMOXICILLIN 500 MG ORAL CAPSULE 2 po BID x 14 days for H. Pylori AMOXICILLIN 500 MG ORAL CAPSULE 373405 AMOXICILLIN Inactive CLARITHROMYCIN 500 MG ORAL TABLET 1 tab po BID x 14 days CLARITHROMYCIN 500 MG ORAL TABLET 465784 CLARITHROMYCIN Inacti ve FLAGYL 500 MG ORAL TABLET 1 tablet by mouth bid 08/29 FLAGYL 500 MG ORAL TABLET 608470 METRONIDAZOLE Inactive PROTONIX 40 MG ORAL TABLET DELAYED RELEASE 1 pill by m outh daily, for acid reflux PROTONIX 40 MG ORAL TABLET DELAYED RELEAS E 692435 PANTOPRAZOLE SODIUM Inactive Immunizations Vaccine Administration Date [...] ... - Chemistry sodium, serum 139 mmol/L 609-091 2188/11/28 carbon dioxide, venous blood 26.0 mmol/L 21.0-32 [...] 5.0-8.5 Encounters Code Encounter Date Provider Facility CPT-16627 Level 4 Est. Patient 08:57:51 INTEL ANALYST Checo Conklin MD [facility] CPT-27590 Level 3 Est. Patient 11:24:55 INTEL ANALYST Efren almendarez [facility] CPT-43904 Level 3 Est. Patient 13:05:44 CDT Paul Hamlin MD [facility] CPT-33590 Level 3 Est. Patient 11:29:55 CDT Checo Conklin MD [facility] CPT-75236 Level 4 Est. Patient 11:08:12 INTEL ANALYST Checo Conklin MD [facility] CPT-97501 Level 4 Est. Patient 16:06:48 INTEL ANALYST Checo Conklin MD [facility] CPT-58704 Level 3 Est. Patient 09:11:49 CDT Efren almendarez [facility] CPT-02876 Level 2 Est. Patient 19:53:27 CDT Tanner hill MD [facility] CPT-88535 Level 3 Est. Patient 09:15:34 CDT Efren almendarez [facility] CPT-72950 Level 3 Est. Patient 11:28:51 INTEL ANALYST Efren almendarez [facility] CPT-87818 Level 4 Est. Patient 13:55:46 INTEL ANALYST Checo Conklin MD [facility] CPT-69408 Level 4 Est. Patient 17:10:53 CDT Checo Conklin MD [facility] CPT-06039 Level 3 Est. Patient 15:56:22 CDT Checo Conklin MD [facility] CPT-80048 Level 3 Est. Patient 15:29:07 CDT Checo Conklin MD [facility] CPT-23574 Level 3 Est. Patient 14:38:41 CDT Checo Conklin MD [facility] CPT-18117 Level 3 Est. Patient 15:22:03 INTEL ANALYST Thomas reynolds DO [facility] CPT-26840 Level 3 Est. Patient 13:34:17 INTEL ANALYST Checo Conklin MD [facility] CPT-28297 Level 3 Est. Patient 12:29:32 CDT Dangelo arroyo MD [facility] CPT-30443 Level 3 Est. Patient 16:53:02 CDT Checo Conklin MD [facility] CPT-93619 Level 3 Est. Patient 16:37:13 CDT Checo Conklin MD [facility] CPT-08886 Level 3 Est. Patient 16:16:59 CDT Paul Hamlin MD [facility] CPT-00075 Level 3 Est. Patient 14:20:13 CDT Dangelo arroyo MD [facility] CPT-54781 Level 4 Est. Patient 11:29:33 CDT Checo Conklin MD [facility] CPT-13066 Level 3 Est. Patient 17:08:31 CDT Checo Conklin MD [facility] CPT-88461 Level 3 Est. Patient 16:50:42 INTEL ANALYST Checo Conklin MD [facility] CPT-41281 Level 4 Est. Patient 09:26:08 INTEL ANALYST Checo Conklin MD [facility] CPT-01582 Level 3 Est. Patient 11:37:10 CDT Checo Conklin MD [facility] CPT-03522 Level 4 Est. Patient 14:07:38 CDT Checo Conklin MD [facility] CPT-30894 Level 3 Est. Patient 09:54:41 CDT Checo Conklin MD [facility] CPT-37062 Level 3 Est. Patient 11:10:54 CDT Pual Hamlin MD [facility] CPT-86154 Level 3 Est. Patient 14:16:56 INTEL ANALYST Checo Conklin MD [facility] CPT-59447 Level 3 Est. Patient 11:04:11 INTEL ANALYST Checo Conklin MD [facility] CPT-65180 Level 3 Est. Patient 17:09:26 CDT Dangelo arroyo MD [facility] CPT-43692 Level 3 Est. Patient 16:54:37 CDT Checo Conklin MD [facility] Procedures Code Procedure Name Date Entry Date Standard Desc ription CPT-18246 Abd compl w upright - XRAY USE ONLY 1 1:36:54 INTEL ANALYST CPT-79574 UA w micro - LAB USE ONLY 17:06:46 CDT 2015 CPT-71343 BHCG Qual - LAB USE ONLY 17:06:46 CDT 05/06 CPT-87908 CMP - LAB USE ONLY 17:06:46 CDT CPT-95358 CBC with Diff - LAB USE ONLY 17:06:45 CDT 2 CPT-43226 Venipuncture Draw Fee 17:06:45 CDT CPT-LR Lesion Removal 19:53:27 CDT CPT-OV Office Visit 11:31:28 CDT CPT-81766 Tubersol 09:39:29 CDT CPT-J2550 Phenergan 25 mg (Promethazine) 13:59:02 INTEL ANALYST CPT-J1885 Toradol 60 mg (Ketorolac) 13:59:02 INTEL ANALYST 2012
--- OUTSIDE RECORDS SUMMARY | 2019-09-29 01:35 | XMS REPORT | Clinical Summary ---
Author Author Admin, Bethany Ayala [facility] Address Unknown Phone Unavailable Allergies, Adverse [...] 1 tablet by mouth qod FLUCONA ZOLE 28300369957 Active Jillina Frazell [employer] Active CLARITIN 10 MG TAB 1 tablet by mouth daily as needed for allergies LORATADINE 41622527234 Active Jillina Frazell [employer] Active AZITHROMYCIN 250 MG TABS 2 po qd x 1 day, then 1 po qd x 4 days AZITHROMYCIN 52576468967 Active Jillina Frazell [employer]IAN A ctive FLAGYL 500 MG TAB 1 tablet by mouth bid METRONI DAZOLE 36313888203 No Longer Active Checo Conklin MD Active FOCALIN XR 10 MG ORAL [id number] 1 po q a.m. DEX METHYLPHENIDATE HCL 36947138778 Active Checo Conklin MD Active MAGNESIUM CITRATE 1.745 GM/30ML ORAL SOLN 150ml po BID PRN C onstipation MAGNESIUM CITRATE 79123389179 No Longer Active Checo Conklin MD Active BACTROBAN 2 % CREAM Apply to affected area BID for up to 10 days MUPIROCIN CALCIUM 79864953807 No Longer Active Checo Conklin MD Active HYDROCODONE-ACETAMINOPHEN 5-325 MG TABS 1 tab by mouth every 6 hours as needed HYDROCODONE-ACETAMINOPHEN 89569614603 No Longer Activ e Checo Conklin MD Active IBUPROFEN 800 MG TABS 1 tab every 8 hours with food 31/03/21 IBUPROFEN 65916373077 No Longer Active Checo Conklin MD Activ e DIFLUCAN 150 MG TAB 1 tablet by mouth if needed, hold until symptoms start FLUCONAZOLE 02761312159 No Longer Active Checo Ortiz MD Active BACTRIM DS 800-160 MG TAB 1 tab by mouth twice daily 2 TRIMETHOPRIM-SULFAMETHOXAZOLE 99395903835 No Longer Active Corry leong LPN Active MIRALAX PACK 1 po qd PRN Constipation POLYETHYL JOEL GLYCOL 3350 01512988691 Active Checo Conklin MD Active HYDROCODONE-ACETAMINOPHEN 5-325 MG TABS 0.5 to 1 tab b y mouth every 6 hours as needed HYDROCODONE-ACETAMINOPHEN 90443389667 No Longer Active Checo Conklin MD Active ONDANSETRON [address] one tablet on tongue and allow to dissolve every 6 hours as needed for vomitting ONDANSETRO N 14105168127 No Longer Active Checo Conklin MD Active COMPRO 25 MG RECTAL SUPP insert or apply one supposit ory rectally as directed every 12 hours as needed for nausea PROCHLORPERA ZINE 99252204891 No Longer Active Checo Conklin MD Active SUMATRIPTAN SUCCINATE 100 MG ORAL TABS Take one PRN for migrane SUMATRIPTAN SUCCINATE 40999221279 No Longer Active Checo Conklin MD Active TRAVEL SICKNESS 25 MG ORAL CHEW chew and swallow one t ablet every 6 hours as needed MECLIZINE HCL 54553160320 No Longer Active Joe Conklin MD Active BUPROPION HCL ER (SR) 100 MG ORAL [id number] take one t ablet by mouth one time daily for one week then take 1 two times daily BUPROPION HCL 79760718380 No Longer Active Checo Conklin MD Activ e TERBINAFINE HCL 250 MG ORAL TABS take one table PO one time abran y TERBINAFINE HCL 10617310440 No Longer Active Checo Conklin MD Active METOCLOPRAMIDE HCL 10 MG ORAL TABS take one PO tid PRN nausea 20 29/12/14 METOCLOPRAMIDE HCL 16384280568 No Longer Active Checo Conklin MD Active DICLOFENAC SODIUM 75 MG TBEC 1 tablet by mouth twice daily P RN Knee pain DICLOFENAC SODIUM 81817367961 No Longer Active Checo Conklin MD Active LAMISIL 250 MG TAB 1 po qd TERBINAFINE HCL 548 00326588 No Longer Active Checo Conklin MD Active REGLAN 10 MG TAB 1 po TID PRN Nausea METOCLOPRA MIDE HCL 48744953998 No Longer Active Checo Conklin MD Active CELEXA 20 MG TABS 1 tablet by mouth daily CITALOPRAM HYDROBROMIDE 00850927906 No Longer Active Checo Conklin MD Activ e AZITHROMYCIN 250 MG TABS 2 po qd x 1 day, then 1 po qd x 4 days AZITHROMYCIN 26921495778 No Longer Active Checo Conklin MD Active HYDROCODONE-ACETAMINOPHEN 5-325 MG TABS 1 po q 6hr PRN Pain 2013 HYDROCODONE-ACETAMINOPHEN 38745910120 No Longer Active Lenora Conklin MD Active PHENAZOPYRIDINE HCL 200 MG TABS take 1 tab po TID for bladder pa in PHENAZOPYRIDINE HCL 79391066150 No Longer Active Checo Joshua Active CIPRO 500 MG TAB 1 tablet by mouth twice daily CIPROFLOXACIN HCL 61998992023 No Longer Active Dangelo Rangel MD Active HYDROCODONE-ACETAMINOPHEN 5-325 MG TABS 1/2 to 1 po q 4 hour s prn cough HYDROCODONE-ACETAMINOPHEN 57448167374 No Longer Activ e Dangelo Rangel MD Active BACTRIM DS 800-160 MG TABS 1 po BID x 7 days 0 SULFAMETHOXAZOLE-TRIMETHOPRIM 16462198921 No Longer Active Checo Conklin MD Active PREDNISONE 20 MG TAB 2 tabs daily for 3 days, 1 t ab daily for 3 days, 1/2 tab daily for 2 days PREDNISONE 27309990908 No Longer Active Checo Conklin MD Active TRIAMCINOLONE ACETONIDE 0.1 % OINT Apply to affected a reas TID for up to 2 weeks TRIAMCINOLONE ACETONIDE 94953787670 No Longer A ctive Checo Conklin MD Active CEFDINIR 300 MG CAPS by mouth twice a day CEFDI JAZZY 07427185317 No Longer Active Dangelo Rangel MD Active BUPROPION HCL (SMOKING DETER) 150 MG [id number] 1 a day for 1 week then 1 twice a day BUPROPION HCL (SMOKING DETER) 96928881963 No Lo nger Active Checo Conklin MD Active SIMVASTATIN 20 MG TABS 1 po qd SIMVASTATIN 9560099095 5 Active Checo Conklin MD Active CHANTIX STARTING MONTH KARTHIK 0.5 MG X 11 & 1 MG X 42 TAB S 0.5mg daily for 3 days, then 0.5mg BID for 4 days, then 1mg BID VARENICLINE TARTRATE 82950589319 No Longer Active Checo Conklin MD Activ e XANAX 0.5 MG TABS 1 po BID PRN anxiety ALPRAZOLAM 09591862886 Active Checo Conklin MD Active CONCERTA 18 MG CR-TABS 1 po q a.m. METHYLPHENID ATE HCL 92844761435 No Longer Active Checo Conklin MD Active AMBIEN 5 MG TAB 1 po qHS PRN Insomnia ZOLPIDEM TARTRATE 88257358565 Active Checo Conklin MD Active TRAZODONE HCL 100 MG TAB 0.5 to 1 po qHS PRN Insomnia TRAZODONE HCL 99010261774 No Longer Active Checo Conklin MD Acti ve FIORICET 325-50-40 MG TAB 1 tablet by mouth four times daily as needed [id number] 41636467062 No Longer Active Checo Conklin MD Active PHENERGAN CREAM* 25mg applied to wrist q6hr PRN Nausea PHENERGAN CREAM* No Longer Active Checo Conklin MD A ctive FLONASE 50 MCG/ACT SUSP 1 spray each nostril am and hs FLUTICASONE PROPIONATE 59171446263 No Longer Active Checo Conklin MD Activ e ANTIPYRINE-BENZOCAINE 5.4-1.4 % SOLN 1-2 drops in affected ear BENZOCAINE-ANTIPYRINE 21910124077 No Longer Active Checo Conklin MD Active CEFDINIR 300 MG CAPS 1 po bid CEFDINIR 37223712 120 No Longer Active Checo Conklin MD Active PREDNISONE 20 MG TAB 2 tabs daily for 3 days, 1 t ab daily for 3 days, 1/2 tab daily for 2 days PREDNISONE 23725782743 No Longer Active Aracelis Conklin MD Active AZITHROMYCIN 250 MG TABS 2 po qd x 1 day, then 1 po qd x 4 days AZITHROMYCIN 32326709784 No Longer Active Checo Conklin MD Active PREDNISONE 20 MG TAB 2 tabs daily for 3 days, 1 t ab daily for 3 days, 1/2 tab daily for 2 days PREDNISONE 61304609163 No Longer Active Checo Conklin MD Active ZITHROMAX Z-KARTHIK 250 MG TABS 2 today, then 1 daily for 4 days 201 09/18/28 AZITHROMYCIN 64617797883 No Longer Active Paul Hamlin MD Active FOCALIN XR 10 MG [id number] 1 po q a.m. D EXMETHYLPHENIDATE HCL 40538660214 No Longer Active Paul Hamlin MD Activ e PERCOCET 10-325 MG TABS 1 tablet every 6 hours as needed for pain OXYCODONE-ACETAMINOPHEN 25186176382 No Longer Active Paul Hamlin MD Active LORTAB 5 5-500 MG TABS 1/2 to 1 tablet by mouth flaquito ry 4 hours as needed for pain HYDROCODONE-ACETAMINOPHEN 72784043198 No Longer Active Checo Conklin MD Active FOCALIN XR 15 MG [id number] 1 po q a.m. D EXMETHYLPHENIDATE HCL 16996950903 No Longer Active Checo Conklin MD Activ e ZOFRAN ODT 4 MG TBDP 1 po q6hr PRN Nausea ONDAN SETRON 08786867331 No Longer Active Checo Conklin MD Active PERCOCET 5-325 MG TABS 1 tablet by mouth every 6 hours as needed OXYCODONE-ACETAMINOPHEN 05167003608 No Longer Active Checo Conklin MD Active PYRIDIUM 200 MG TABS take 1 tab po TID prn urinary pain. 0 PHENAZOPYRIDINE HCL 68487342759 No Longer Active Checo Conklin MD Active FLUCONAZOLE 150 MG TABS take 1 tab po qday once 04/06 FLUCONAZOLE 60367607827 No Longer Active Dangelo Rangel MD Acti ve CIPRO 500 MG TAB 1 tablet by mouth twice daily CIPROFLOXACIN HCL 86635231313 No Longer Active Dangelo Rangel MD Active PYRIDIUM 200 MG TABS take 1 tab po TID prn urinary pain. 0 PYRIDIUM 200 MG TABS 8635183 PHENAZOPYRIDINE HCL Inactive PERCOCET 5-325 MG TABS 1 tablet by mouth every 6 hours as needed PERCOCET 5-325 MG TABS 8177194 OXYCODONE-ACETAMINOPHEN I nactive ZOFRAN ODT 4 MG TBDP 1 po q6hr PRN Nausea ZOFRAN ODT 4 MG TBDP 832332 ONDANSETRON Inactive FOCALIN XR 15 MG [id number] 1 po q a.m. F OCALIN XR 15 MG [id number] DEXMETHYLPHENIDATE HCL Inactive LORTAB 5 5-500 MG TABS 1/2 to 1 tablet by mouth flaquito ry 4 hours as needed for pain LORTAB 5 5-500 MG TABS HYDROCODONE-A CETAMINOPHEN Inactive PERCOCET 10-325 MG TABS 1 tablet every 6 hours as needed for pain PERCOCET 10-325 MG TABS 0294041 OXYCODONE-ACETAMINOPHEN Inactive FOCALIN XR 10 MG [id number] 1 po q a.m. F OCALIN XR 10 MG [id number] DEXMETHYLPHENIDATE HCL Inactive CEFDINIR 300 MG CAPS 1 po bid CEFDINIR 300 MG CAPS 20 0346 CEFDINIR Inactive ANTIPYRINE-BENZOCAINE 5.4-1.4 % SOLN 1-2 drops in affected ear ANTIPYRINE-BENZOCAINE 5.4-1.4 % SOLN 771444 BENZOCAINE-ANTIPYRINE I nactive FLONASE 50 MCG/ACT SUSP [...] PRN Insomnia TRAZODONE HCL 100 MG TAB 334005 TRAZODONE HCL Inactive CONCERTA 18 MG CR-TABS [...] s prn cough HYDROCODONE-ACETAMINOPHEN 5-325 MG TABS 509381 HYDROCODONE-ACETAMINOPHEN Inactive PHENAZOPYRIDINE HCL 200 MG TABS take 1 tab po TID for bladder pa in PHENAZOPYRIDINE HCL 200 MG TABS 5142266 PHENAZOPYRIDINE HCL Inactive HYDROCODONE-ACETAMINOPHEN 5-325 MG TABS 1 po q 6hr PRN Pain 2013 HYDROCODONE-ACETAMINOPHEN 5-325 MG TABS 732777 HYDROCODONE-ACETAMINOPHEN Inactive CELEXA 20 MG TABS 1 tablet by mouth daily CELEXA 20 MG TABS 363209 CITALOPRAM HYDROBROMIDE Inactive REGLAN 10 MG TAB 1 po TID PRN Nausea REGLAN 10 MG TAB 843060 METOCLOPRAMIDE HCL Inactive LAMISIL 250 MG TAB 1 po qd LAMISIL 250 MG TAB 223412 TERBINAFINE HCL Inactive DICLOFENAC SODIUM 75 MG TBEC 1 tablet by mouth twice daily P RN Knee pain DICLOFENAC SODIUM 75 MG TBEC 327587 DICLOFENAC S ODIUM Inactive METOCLOPRAMIDE HCL 10 MG ORAL TABS take one PO tid PRN nausea 20 29/12/14 METOCLOPRAMIDE HCL 10 MG ORAL TABS 214758 METOCLOPRAMID E HCL Inactive TERBINAFINE HCL 250 MG ORAL TABS take one table PO one time abran y TERBINAFINE HCL 250 MG ORAL TABS 305758 TERBINAFINE HCL Inactive BUPROPION HCL ER (SR) 100 MG ORAL [id number] take one t ablet by mouth one time daily for one week then take 1 two times daily BUPROPION HCL ER (SR) 100 MG ORAL [id number] BUPROPION HCL Inacti ve TRAVEL SICKNESS 25 MG ORAL CHEW chew and swallow one t ablet every 6 hours as needed TRAVEL SICKNESS 25 MG ORAL CHEW 632364 MECLIZINE HCL Inactive SUMATRIPTAN SUCCINATE 100 MG ORAL TABS Take one PRN for migrane SUMATRIPTAN SUCCINATE 100 MG ORAL TABS 958875 SUMATRIPT AN SUCCINATE Inactive COMPRO 25 MG RECTAL SUPP insert or apply one supposit ory rectally as directed every 12 hours as needed for nausea COMP RO 25 MG RECTAL SUPP 710241 PROCHLORPERAZINE Inactive ONDANSETRON [address] one tablet on tongue and allow to dissolve every 6 hours as needed for vomitting ON DANSETRON 8 MG ORAL TBDP 164711 ONDANSETRON Inactive HYDROCODONE-ACETAMINOPHEN 5-325 MG TABS 0.5 to 1 tab b y mouth every 6 hours as needed HYDROCODONE-ACETAMINOPHEN 5-325 MG TABS 8 83712 HYDROCODONE-ACETAMINOPHEN Inactive BACTRIM DS 800-160 MG TAB 1 tab by mouth twice daily 2 BACTRIM DS 800-160 MG TAB 331791 TRIMETHOPRIM-SULFAMETHOXAZOLE Inac tive DIFLUCAN 150 MG TAB 1 tablet by mouth if needed, hold until symptoms start DIFLUCAN 150 MG TAB 909123 FLUCONAZOLE Inactive IBUPROFEN 800 MG TABS 1 tab every 8 hours with food 31/03/21 IBUPROFEN 800 MG TABS 011016 IBUPROFEN Inactive HYDROCODONE-ACETAMINOPHEN 5-325 MG TABS 1 tab by mouth every 6 hours as needed HYDROCODONE-ACETAMINOPHEN 5-325 MG TABS 690084 HYDROCODONE-ACETAMINOPHEN Inactive BACTROBAN 2 % CREAM Apply to affected area BID for up to 10 days BACTROBAN 2 % CREAM 334079 MUPIROCIN CALCIUM Inactive MAGNESIUM CITRATE 1.745 GM/30ML ORAL SOLN 150ml po BID PRN C onstipation MAGNESIUM CITRATE 1.745 GM/30ML ORAL SOLN 522382 0 MAGNESIUM CITRATE Inactive CIPRO 500 MG TAB 1 tablet by mouth twice daily CIPRO 500 MG TAB 926255 CIPROFLOXACIN HCL Inactive FLUCONAZOLE 150 MG TABS take 1 tab po qday once 04/06 FLUCONAZOLE 150 MG TABS 981619 FLUCONAZOLE Inactive ZITHROMAX Z-KARTHIK 250 MG TABS 2 today, then 1 daily for 4 days 201 09/18/28 ZITHROMAX Z-KARTHIK 250 MG TABS 2971810 AZITHROMYCIN Inac tive PREDNISONE 20 MG TAB 2 tabs daily for 3 days, 1 t ab daily for 3 days, 1/2 tab daily for 2 days PREDNISONE 20 MG TAB 700404 PREDNISON E Inactive AZITHROMYCIN 250 MG TABS 2 po qd x 1 day, then 1 po qd x 4 days AZITHROMYCIN 250 MG TABS 5387989 AZITHROMYCIN Inactiv e PREDNISONE 20 MG TAB 2 tabs daily for 3 days, 1 t ab daily for 3 days, 1/2 tab daily for 2 days PREDNISONE 20 MG TAB 810545 PREDNISON E Inactive CEFDINIR 300 MG CAPS by mouth twice a day CEFDINIR 300 MG CAPS 021301 CEFDINIR Inactive TRIAMCINOLONE ACETONIDE 0.1 % OINT Apply to affected a reas TID for up to 2 weeks TRIAMCINOLONE ACETONIDE 0.1 % OINT 673325 6 TRIAMCINOLONE ACETONIDE Inactive PREDNISONE 20 MG TAB 2 tabs daily for 3 days, 1 t ab daily for 3 days, 1/2 tab daily for 2 days PREDNISONE 20 MG TAB 237779 PREDNISON E Inactive BACTRIM DS 800-160 MG TABS 1 po BID x 7 days 0 BACTRIM DS 800-160 MG TABS 748025 SULFAMETHOXAZOLE-TRIMETHOPRIM Inactive CIPRO 500 MG TAB 1 tablet by mouth twice daily CIPRO 500 MG TAB 694201 CIPROFLOXACIN HCL Inactive AZITHROMYCIN 250 MG TABS 2 po qd x 1 day, then 1 po qd x 4 days AZITHROMYCIN 250 MG TABS 9416201 AZITHROMYCIN Inactiv e FLAGYL 500 MG TAB 1 tablet by mouth bid FLAGYL 500 MG TAB 872115 METRONIDAZOLE Inactive Immunizations Vaccine Administration Date Value [...] count 210 10^3/MM^3 10*3/mm3 142-424 Lab Report: UADIP W/MICRO, AUTO - Chemis [...] 5.0-8.5 Encounters Code Encounter Date Provider Facility CPT-32158 Level 3 Est. Patient 11:28:51 DE ALCOHOLIZER Efren almendarez APRN [facility] CPT-25196 Level 4 Est. Patient 13:55:46 DE ALCOHOLIZER Checo Conklin MD [facility] CPT-67593 Level 4 Est. Patient 17:10:53 CDT Checo Conklin MD [facility]-64116 Level 3 Est. Patient 15:56:22 CDT Checo Conklin MD [facility] CPT-86137 Level 3 Est. Patient 15:29:07 CDT Checo Conklin MD [facility] CPT-83762 Level 3 Est. Patient 14:38:41 CDT Checo Conklin MD [facility] CPT-13836 Level 3 Est. Patient 15:22:03 DE ALCOHOLIZER Thomas reynolds DO [facility] CPT-69297 Level 3 Est. Patient 13:34:17 DE ALCOHOLIZER Checo Conklin MD [facility] CPT-83897 Level 3 Est. Patient 12:29:32 CDT Dangelo arroyo MD [facility]-16941 Level 3 Est. Patient 16:53:02 CDT Checo Conklin MD [facility] CPT-77968 Level 3 Est. Patient 16:37:13 CDT Checo Conklin MD [facility] CPT-68876 Level 3 Est. Patient 16:16:59 CDT Paul Hamlin MD [facility]-67831 Level 3 Est. Patient 14:20:13 CDT Dangelo arroyo MD [facility] CPT-69526 Level 4 Est. Patient 11:29:33 CDT Checo Conklin MD [facility] CPT-48395 Level 3 Est. Patient 17:08:31 CDT Checo Conklin MD [facility] CPT-13792 Level 3 Est. Patient 16:50:42 DE ALCOHOLIZER Checo Conklin MD [facility] CPT-05122 Level 4 Est. Patient 09:26:08 DE ALCOHOLIZER Checo Conklin MD [facility] CPT-02209 Level 3 Est. Patient 11:37:10 CDT Checo Conklin MD [facility] CPT-50347 Level 4 Est. Patient 14:07:38 CDT Checo Conklin MD [facility] CPT-83006 Level 3 Est. Patient 09:54:41 CDT Checo Conklin MD [facility] CPT-42774 Level 3 Est. Patient 11:10:54 CDT Paul Hamlin MD [facility] CPT-04594 Level 3 Est. Patient 14:16:56 DE ALCOHOLIZER Checo Conklin MD [facility] CPT-46271 Level 3 Est. Patient 11:04:11 DE ALCOHOLIZER Checo Conklin MD [facility] CPT-11805 Level 3 Est. Patient 17:09:26 CDT Dangelo arroyo MD [facility] CPT-63123 Level 3 Est. Patient 16:54:37 CDT Checo Conklin MD [facility] Procedures Code Procedure Name Date Entry Date Standard Desc ription CPT-OV Office Visit 11:31:28 CDT CPT-36440 Tubersol 09:39:29 CDT CPT-J2550 Phenergan 25 mg (Promethazine) 13:59:02 DE ALCOHOLIZER CPT-J1885 Toradol 60 mg (Ketorolac) 13:59:02 DE ALCOHOLIZER 2012
--- OUTSIDE RECORDS SUMMARY | 2019-09-29 01:35 | XMS REPORT | Clinical Summary ---
Author Author Admin, Bethany Ayala [facility] Address Unknown Phone Unavailable Allergies, Adverse [...] Abdominal pain, generalized Urinary frequency 788.41 Resolved Cehco Conklin MD Urinary frequency Sinusitis, acute 461.9 [...] TABS 1.5 po qd PAROX ETINE HCL 68856808384 Active Checo Conklin MD Active FLUTICASONE PROPIONATE 50 MCG/ACT NASAL SUSP 2 sprays/ nostril qd PRN Congestion/Allergies FLUTICASONE PROPIONATE 2597160925 5 No Longer Active Checo Conklin MD Active AMOXICILLIN 500 MG ORAL CAPS 2 po BID x 10 days 09/12 AMOXICILLIN 89664381087 No Longer Active Checo Conklin MD Activ e MIRALAX ORAL POWD 8.5 to 17g po qd PRN Constipation POLYETHYLENE GLYCOL 3350 62023302247 Active Checo Conklin MD Active CLARITIN 10 MG TAB 1 tablet by mouth daily as needed for allergi es LORATADINE 19976996624 No Longer Active Checo Conklin MD Active BACTRIM DS 800-160 MG TAB 1 tab by mouth twice daily 2 TRIMETHOPRIM-SULFAMETHOXAZOLE 25246477629 No Longer Active Tanner Carrillo MD Active DIFLUCAN 150 MG TAB 1 tablet by mouth qod FLUCO NAZOLE 52843802203 No Longer Active Efren Medel APRN Active AZITHROMYCIN 250 MG TABS 2 po qd x 1 day, then 1 po qd x 4 days AZITHROMYCIN 64302809776 No Longer Active Jillina Frajoel MACHINE ADJUSTER LEADER Active FLAGYL 500 MG TAB 1 tablet by mouth bid METRONI DAZOLE 22083215229 No Longer Active Checo Conklin MD Active FOCALIN XR 10 MG ORAL [id number] 1 po q a.m. DEX METHYLPHENIDATE HCL 73592867106 Active Checo Conklin MD Active MAGNESIUM CITRATE 1.745 GM/30ML ORAL SOLN 150ml po BID PRN C onstipation MAGNESIUM CITRATE 08887857259 No Longer Active Checo Conklin MD Active BACTROBAN 2 % CREAM Apply to affected area BID for up to 10 days MUPIROCIN CALCIUM 67067085586 No Longer Active Checo Conklin MD Active HYDROCODONE-ACETAMINOPHEN 5-325 MG TABS 1 tab by mouth every 6 hours as needed HYDROCODONE-ACETAMINOPHEN 52697112785 No Longer Activ e Checo Conklin MD Active IBUPROFEN 800 MG TABS 1 tab every 8 hours with food 20 31/03/21 IBUPROFEN 33311431570 No Longer Active Checo Conklin MD Activ e DIFLUCAN 150 MG TAB 1 tablet by mouth if needed, hold until symptoms start FLUCONAZOLE 08722974824 No Longer Active Checo Ortiz MD Active BACTRIM DS 800-160 MG TAB 1 tab by mouth twice daily 2 TRIMETHOPRIM-SULFAMETHOXAZOLE 16483596110 No Longer Active Corry leong LPN Active HYDROCODONE-ACETAMINOPHEN 5-325 MG TABS 0.5 to 1 tab b y mouth every 6 hours as needed HYDROCODONE-ACETAMINOPHEN 42923270028 No Longer Active Checo Conklin MD Active ONDANSETRON [address] one tablet on tongue and allow to dissolve every 6 hours as needed for vomitting ONDANSETRO N 39174607598 No Longer Active Checo Conklin MD Active COMPRO 25 MG RECTAL SUPP insert or apply one supposit ory rectally as directed every 12 hours as needed for nausea PROCHLORPERA ZINE 56378438019 No Longer Active Checo Conklin MD Active SUMATRIPTAN SUCCINATE 100 MG ORAL TABS Take one PRN for migrane SUMATRIPTAN SUCCINATE 32485777371 No Longer Active Checo Conklin MD Active TRAVEL SICKNESS 25 MG ORAL CHEW chew and swallow one t ablet every 6 hours as needed MECLIZINE HCL 12202691129 No Longer Active Joe Conklin MD Active BUPROPION HCL ER (SR) 100 MG ORAL [id number] take one t ablet by mouth one time daily for one week then take 1 two times daily BUPROPION HCL 00309185408 No Longer Active Checo Conklin MD Activ e TERBINAFINE HCL 250 MG ORAL TABS take one table PO one time abran y TERBINAFINE HCL 99903437052 No Longer Active Checo Conklin MD Active METOCLOPRAMIDE HCL 10 MG ORAL TABS take one PO tid PRN nausea 20 29/12/14 METOCLOPRAMIDE HCL 90248683744 No Longer Active Checo Conklin MD Active DICLOFENAC SODIUM 75 MG TBEC 1 tablet by mouth twice daily P RN Knee pain DICLOFENAC SODIUM 67369486055 No Longer Active Checo Conklin MD Active LAMISIL 250 MG TAB 1 po qd TERBINAFINE HCL 548 19007795 No Longer Active Checo Conklin MD Active REGLAN 10 MG TAB 1 po TID PRN Nausea METOCLOPRA MIDE HCL 05185408937 No Longer Active Checo Conklin MD Active CELEXA 20 MG TABS 1 tablet by mouth daily CITALOPRAM HYDROBROMIDE 67367752948 No Longer Active Checo Conklin MD Activ e AZITHROMYCIN 250 MG TABS 2 po qd x 1 day, then 1 po qd x 4 days AZITHROMYCIN 87712992691 No Longer Active Checo Conklin MD Active HYDROCODONE-ACETAMINOPHEN 5-325 MG TABS 1 po q 6hr PRN Pain 2013 HYDROCODONE-ACETAMINOPHEN 26137291576 No Longer Active Lenora Conklin MD Active PHENAZOPYRIDINE HCL 200 MG TABS take 1 tab po TID for bladder pa in PHENAZOPYRIDINE HCL 92275945590 No Longer Active Checo Joshua Active CIPRO 500 MG TAB 1 tablet by mouth twice daily CIPROFLOXACIN HCL 21871504502 No Longer Active Dangelo Rangel MD Active HYDROCODONE-ACETAMINOPHEN 5-325 MG TABS 1/2 to 1 po q 4 hour s prn cough HYDROCODONE-ACETAMINOPHEN 25592869897 No Longer Activ e Dangelo Rangel MD Active BACTRIM DS 800-160 MG TABS 1 po BID x 7 days 0 SULFAMETHOXAZOLE-TRIMETHOPRIM 47823841737 No Longer Active Checo Conklin MD Active PREDNISONE 20 MG TAB 2 tabs daily for 3 days, 1 t ab daily for 3 days, 1/2 tab daily for 2 days PREDNISONE 25217296347 No Longer Active Checo Conklin MD Active TRIAMCINOLONE ACETONIDE 0.1 % OINT Apply to affected a reas TID for up to 2 weeks TRIAMCINOLONE ACETONIDE 67571675469 No Longer A ctive Checo Conklin MD Active CEFDINIR 300 MG CAPS by mouth twice a day CEFDI JAZZY 81361700394 No Longer Active Dangelo Rangel MD Active BUPROPION HCL (SMOKING DETER) 150 MG [id number] 1 a day for 1 week then 1 twice a day BUPROPION HCL (SMOKING DETER) 07811071429 No Lo nger Active Checo Conklin MD Active SIMVASTATIN 20 MG TABS 1 po qd SIMVASTATIN 4196184625 5 Active Checo Conklin MD Active CHANTIX STARTING MONTH KARTHIK 0.5 MG X 11 & 1 MG X 42 TAB S 0.5mg daily for 3 days, then 0.5mg BID for 4 days, then 1mg BID VARENICLINE TARTRATE 90892416984 No Longer Active Checo Conklin MD Activ e XANAX 0.5 MG TABS 1 po BID PRN anxiety ALPRAZOLAM 07326487512 Active Checo Conklin MD Active CONCERTA 18 MG CR-TABS 1 po q a.m. METHYLPHENID ATE HCL 42620276092 No Longer Active Checo Conklin MD Active AMBIEN 5 MG TAB 1 po qHS PRN Insomnia ZOLPIDEM TARTRATE 90834217496 Active Checo Conklin MD Active TRAZODONE HCL 100 MG TAB 0.5 to 1 po qHS PRN Insomnia TRAZODONE HCL 64156985449 No Longer Active Checo Conklin MD Acti ve FIORICET 325-50-40 MG TAB 1 tablet by mouth four times daily as needed [id number] 55493043320 No Longer Active Checo Conklin MD Active PHENERGAN CREAM* 25mg applied to wrist q6hr PRN Nausea PHENERGAN CREAM* No Longer Active Checo Conklin MD A ctive FLONASE 50 MCG/ACT SUSP 1 spray each nostril am and hs FLUTICASONE PROPIONATE 86871198283 No Longer Active Checo Conklin MD Activ e ANTIPYRINE-BENZOCAINE 5.4-1.4 % SOLN 1-2 drops in affected ear BENZOCAINE-ANTIPYRINE 25498722123 No Longer Active Checo Conklin MD Active CEFDINIR 300 MG CAPS 1 po bid CEFDINIR 04040811 120 No Longer Active Checo Conklin MD Active PREDNISONE 20 MG TAB 2 tabs daily for 3 days, 1 t ab daily for 3 days, 1/2 tab daily for 2 days PREDNISONE 33951819293 No Longer Active Aracelis Conklin MD Active AZITHROMYCIN 250 MG TABS 2 po qd x 1 day, then 1 po qd x 4 days AZITHROMYCIN 19438524784 No Longer Active Checo Conklin MD Active PREDNISONE 20 MG TAB 2 tabs daily for 3 days, 1 t ab daily for 3 days, 1/2 tab daily for 2 days PREDNISONE 98261643190 No Longer Active Checo Conklin MD Active ZITHROMAX Z-KARTHIK 250 MG TABS 2 today, then 1 daily for 4 days 201 09/18/28 AZITHROMYCIN 09344131703 No Longer Active Paul Hamlin MD Active FOCALIN XR 10 MG [id number] 1 po q a.m. D EXMETHYLPHENIDATE HCL 09543310621 No Longer Active Paul Hamlin MD Activ e PERCOCET 10-325 MG TABS 1 tablet every 6 hours as needed for pain OXYCODONE-ACETAMINOPHEN 16114108830 No Longer Active Paul Hamlin MD Active LORTAB 5 5-500 MG TABS 1/2 to 1 tablet by mouth flaquito ry 4 hours as needed for pain HYDROCODONE-ACETAMINOPHEN 12607998299 No Longer Active Checo Conklin MD Active FOCALIN XR 15 MG [id number] 1 po q a.m. D EXMETHYLPHENIDATE HCL 46258017343 No Longer Active Checo Conklin MD Activ e ZOFRAN ODT 4 MG TBDP 1 po q6hr PRN Nausea ONDAN SETRON 81990056940 No Longer Active Checo Conklin MD Active PERCOCET 5-325 MG TABS 1 tablet by mouth every 6 hours as needed OXYCODONE-ACETAMINOPHEN 06995594022 No Longer Active Checo Conklin MD Active PYRIDIUM 200 MG TABS take 1 tab po TID prn urinary pain. 0 PHENAZOPYRIDINE HCL 03658062828 No Longer Active Checo Conklin MD Active FLUCONAZOLE 150 MG TABS take 1 tab po qday once 04/06 FLUCONAZOLE 24599602341 No Longer Active Dangelo Rangel MD Acti ve CIPRO 500 MG TAB 1 tablet by mouth twice daily CIPROFLOXACIN HCL 69241199694 No Longer Active Dangelo Rangel MD Active PYRIDIUM 200 MG TABS take 1 tab po TID prn urinary pain. 0 PYRIDIUM 200 MG TABS 5273835 PHENAZOPYRIDINE HCL Inactive PERCOCET 5-325 MG TABS 1 tablet by mouth every 6 hours as needed PERCOCET 5-325 MG TABS 6725267 OXYCODONE-ACETAMINOPHEN I nactive ZOFRAN ODT 4 MG TBDP 1 po q6hr PRN Nausea ZOFRAN ODT 4 MG TBDP 861687 ONDANSETRON Inactive FOCALIN XR 15 MG [id number] 1 po q a.m. F OCALIN XR 15 MG [id number] DEXMETHYLPHENIDATE HCL Inactive LORTAB 5 5-500 MG TABS 1/2 to 1 tablet by mouth flaquito ry 4 hours as needed for pain LORTAB 5 5-500 MG TABS HYDROCODONE-A CETAMINOPHEN Inactive PERCOCET 10-325 MG TABS 1 tablet every 6 hours as needed for pain PERCOCET 10-325 MG TABS 9354043 OXYCODONE-ACETAMINOPHEN Inactive FOCALIN XR 10 MG [id number] 1 po q a.m. F OCALIN XR 10 MG [id number] DEXMETHYLPHENIDATE HCL Inactive CEFDINIR 300 MG CAPS 1 po bid CEFDINIR 300 MG CAPS 20 0346 CEFDINIR Inactive ANTIPYRINE-BENZOCAINE 5.4-1.4 % SOLN 1-2 drops in affected ear ANTIPYRINE-BENZOCAINE 5.4-1.4 % SOLN BENZOCAINE-ANTIPYRINE I nactive FLONASE 50 MCG/ACT SUSP 1 spray each nostril am and hs FLONASE 50 MCG/ACT SUSP 4808241 FLUTICASONE PROPIONATE Inactive PHENERGAN CREAM* 25mg applied to wrist q6hr PRN Nausea PHENERGAN CREAM* Inactive FIORICET 325-50-40 MG TAB 1 tablet by mouth four times daily as needed FIORICET 325-50-40 MG TAB ACETAMINOPHEN-C AFF-BUTALBITAL Inactive TRAZODONE HCL 100 MG TAB 0.5 to 1 po qHS PRN Insomnia TRAZODONE HCL 100 MG TAB 144120 TRAZODONE HCL Inactive CONCERTA 18 MG CR-TABS [...] s prn cough HYDROCODONE-ACETAMINOPHEN 5-325 MG TABS 064576 HYDROCODONE-ACETAMINOPHEN Inactive PHENAZOPYRIDINE HCL 200 MG TABS take 1 tab po TID for bladder pa in PHENAZOPYRIDINE HCL 200 MG TABS 7461691 PHENAZOPYRIDINE HCL Inactive HYDROCODONE-ACETAMINOPHEN 5-325 MG TABS 1 po q 6hr PRN Pain 2013 HYDROCODONE-ACETAMINOPHEN 5-325 MG TABS 747745 HYDROCODONE-ACETAMINOPHEN Inactive CELEXA 20 MG TABS 1 tablet by mouth daily CELEXA 20 MG TABS 861675 CITALOPRAM HYDROBROMIDE Inactive REGLAN 10 MG TAB 1 po TID PRN Nausea REGLAN 10 MG TAB 798194 METOCLOPRAMIDE HCL Inactive LAMISIL 250 MG TAB 1 po qd LAMISIL 250 MG TAB 659014 TERBINAFINE HCL Inactive DICLOFENAC SODIUM 75 MG TBEC 1 tablet by mouth twice daily P RN Knee pain DICLOFENAC SODIUM 75 MG TBEC 299207 DICLOFENAC S ODIUM Inactive METOCLOPRAMIDE HCL 10 MG ORAL TABS take one PO tid PRN nausea 20 29/12/14 METOCLOPRAMIDE HCL 10 MG ORAL TABS 428915 METOCLOPRAMID E HCL Inactive TERBINAFINE HCL 250 MG ORAL TABS take one table PO one time abran y TERBINAFINE HCL 250 MG ORAL TABS 035417 TERBINAFINE HCL Inactive BUPROPION HCL ER (SR) 100 MG ORAL [id number] take one t ablet by mouth one time daily for one week then take 1 two times daily BUPROPION HCL ER (SR) 100 MG ORAL [id number] BUPROPION HCL Inacti ve TRAVEL SICKNESS 25 MG ORAL CHEW chew and swallow one t ablet every 6 hours as needed TRAVEL SICKNESS 25 MG ORAL CHEW 897629 MECLIZINE HCL Inactive SUMATRIPTAN SUCCINATE 100 MG ORAL TABS Take one PRN for migrane SUMATRIPTAN SUCCINATE 100 MG ORAL TABS 676741 SUMATRIPT AN SUCCINATE Inactive COMPRO 25 MG RECTAL SUPP insert or apply one supposit ory rectally as directed every 12 hours as needed for nausea COMP RO 25 MG RECTAL SUPP 965764 PROCHLORPERAZINE Inactive ONDANSETRON [address] one tablet on tongue and allow to dissolve every 6 hours as needed for vomitting ON DANSETRON 8 MG ORAL TBDP 677910 ONDANSETRON Inactive HYDROCODONE-ACETAMINOPHEN 5-325 MG TABS 0.5 to 1 tab b y mouth every 6 hours as needed HYDROCODONE-ACETAMINOPHEN 5-325 MG TABS 8 42139 HYDROCODONE-ACETAMINOPHEN Inactive BACTRIM DS 800-160 MG TAB 1 tab by mouth twice daily 2 BACTRIM DS 800-160 MG TAB 309398 TRIMETHOPRIM-SULFAMETHOXAZOLE Inac tive DIFLUCAN 150 MG TAB 1 tablet by mouth if needed, hold until symptoms start DIFLUCAN 150 MG TAB 19760325 FLUCONAZOLE Inactive IBUPROFEN 800 MG TABS 1 tab every 8 hours with food 31/03/21 IBUPROFEN 800 MG TABS 929699 IBUPROFEN Inactive HYDROCODONE-ACETAMINOPHEN 5-325 MG TABS 1 tab by mouth every 6 hours as needed HYDROCODONE-ACETAMINOPHEN 5-325 MG TABS 728859 HYDROCODONE-ACETAMINOPHEN Inactive BACTROBAN 2 % CREAM Apply to affected area BID for up to 10 days BACTROBAN 2 % CREAM 649276 MUPIROCIN CALCIUM Inactive MAGNESIUM CITRATE 1.745 GM/30ML ORAL SOLN 150ml po BID PRN C onstipation MAGNESIUM CITRATE 1.745 GM/30ML ORAL SOLN 830205 0 MAGNESIUM CITRATE Inactive DIFLUCAN 150 MG TAB 1 tablet by mouth qod DIFLUCAN 150 MG TAB 432227 FLUCONAZOLE Inactive BACTRIM DS 800-160 MG TAB 1 tab by mouth twice daily 2 BACTRIM DS 800-160 MG TAB 19820918 TRIMETHOPRIM-SULFAMETHOXAZOLE Inac tive CLARITIN 10 MG TAB 1 tablet by mouth daily as needed for allergi es CLARITIN 10 MG TAB 728516 LORATADINE Inactive FLUTICASONE PROPIONATE 50 MCG/ACT NASAL SUSP 2 sprays/ nostril qd PRN Congestion/Allergies FLUTICASONE PROPION ATE 50 MCG/ACT NASAL SUSP 5481616 FLUTICASONE PROPIONATE Inactive CIPRO 500 MG TAB 1 tablet by mouth twice daily CIPRO 500 MG TAB 768836 CIPROFLOXACIN HCL Inactive FLUCONAZOLE 150 MG TABS take 1 tab po qday once 04/06 FLUCONAZOLE 150 MG TABS 133856 FLUCONAZOLE Inactive ZITHROMAX Z-KARTHIK 250 MG TABS 2 today, then 1 daily for 4 days 201 09/18/28 ZITHROMAX Z-KARTHIK 250 MG TABS 7277030 AZITHROMYCIN Inac tive PREDNISONE 20 MG TAB 2 tabs daily for 3 days, 1 t ab daily for 3 days, 1/2 tab daily for 2 days PREDNISONE 20 MG TAB 959771 PREDNISON E Inactive AZITHROMYCIN 250 MG TABS 2 po qd x 1 day, then 1 po qd x 4 days AZITHROMYCIN 250 MG TABS 2315435 AZITHROMYCIN Inactiv e PREDNISONE 20 MG TAB 2 tabs daily for 3 days, 1 t ab daily for 3 days, 1/2 tab daily for 2 days PREDNISONE 20 MG TAB 066790 PREDNISON E Inactive CEFDINIR 300 MG CAPS by mouth twice a day CEFDINIR 300 MG CAPS 277953 CEFDINIR Inactive TRIAMCINOLONE ACETONIDE 0.1 % OINT Apply to affected a reas TID for up to 2 weeks TRIAMCINOLONE ACETONIDE 0.1 % OINT 109798 6 TRIAMCINOLONE ACETONIDE Inactive PREDNISONE 20 MG TAB 2 tabs daily for 3 days, 1 t ab daily for 3 days, 1/2 tab daily for 2 days PREDNISONE 20 MG TAB 372791 PREDNISON E Inactive BACTRIM DS 800-160 MG TABS 1 po BID x 7 days 0 BACTRIM DS 800-160 MG TABS 442660 SULFAMETHOXAZOLE-TRIMETHOPRIM Inactive CIPRO 500 MG TAB 1 tablet by mouth twice daily CIPRO 500 MG TAB 391194 CIPROFLOXACIN HCL Inactive AZITHROMYCIN 250 MG TABS 2 po qd x 1 day, then 1 po qd x 4 days AZITHROMYCIN 250 MG TABS 9015812 AZITHROMYCIN Inactiv e FLAGYL 500 MG TAB 1 tablet by mouth bid FLAGYL 500 MG TAB 941091 METRONIDAZOLE Inactive AZITHROMYCIN 250 MG TABS 2 po qd x 1 day, then 1 po qd x 4 days AZITHROMYCIN 250 MG TABS 3210069 AZITHROMYCIN Inactiv e AMOXICILLIN 500 MG ORAL CAPS 2 po BID x 10 days 09/12 AMOXICILLIN 500 MG ORAL CAPS 248239 AMOXICILLIN Inactive Immunizations Vaccine Administration Date Value [...] CITY - Chemistry sodium, serum 139 mmol/L 393-562 3090/10/21 carbon dioxide, venous blood 33.5 mmol/L 21.0-32 [...] PANEL - Chemistry cholesterol, serum 192 mg/dL 226-395 3703/02/20 HDL cholesterol, serum 31 mg/dL > OR [...] 11 .0-15.0 platelet count 218 THOUSAND/UL 10*3/mm3 243-645 1307/02/20 mean platelet volume 9.7 fL 7.5-12.5 Lab Report: Chlamydia/GC APTIMA/86165 - Lab chlamydia DNA probe NOT DETECTED NOT DETECTED Lab Report: Chlamydia/GC APTIMA/71952 - Microbiology Neisseria gonorrhoeae DNA probe NOT DETECTED NO T DETECTED Lab Report: UADIP W/MICRO, AUTO - Chemis try RBC, urine, dipstick 2+ Negative protein, total urine random Negative mg/dL Negative Lab Report: UADIP W/MICRO, AUTO - Urinal ysis pH, urine, semiquantitative 5.5 5.0-8.5 specific gravity, urine >=1.030 1.000-1.030 appearance, urine Clear Clear urine color Yellow Colorless;Lightyellow;St raw;Yellow glucose, urine, semiquantitative Negative Neg ative ketones, urine, by test strip Negative Negati ve bilirubin, urine Negative Negative urobilinogen, urine, semiquantitative (dipstick) 0.2 Normal leukocyte esterase, urine, by dipstick Negative Negative nitrite, urine, semiquantitative Negative Neg ative Encounters Code Encounter Date Provider Facility CPT-20639 Level 3 Est. Patient 13:05:44 CDT Paul Hamlin MD [facility] CPT-74385 Level 3 Est. Patient 11:29:55 CDT Checo Conklin MD [facility] CPT-16137 Level 4 Est. Patient 11:08:12 INSULATION MACHINE OPERATOR Checo Conklin MD [facility] CPT-33675 Level 4 Est. Patient 16:06:48 INSULATION MACHINE OPERATOR Checo Conklin MD [facility] CPT-29763 Level 3 Est. Patient 09:11:49 CDT Efren almendarez [facility] CPT-05309 Level 2 Est. Patient 19:53:27 CDT Tanner hill MD [facility] CPT-03571 Level 3 Est. Patient 09:15:34 CDT Efren almendarez [facility] CPT-24905 Level 3 Est. Patient 11:28:51 INSULATION MACHINE OPERATOR Efren almendarez [facility] CPT-51260 Level 4 Est. Patient 13:55:46 INSULATION MACHINE OPERATOR Checo Conklin MD [facility] CPT-42410 Level 4 Est. Patient 17:10:53 CDT Checo Conklin MD [facility] CPT-54149 Level 3 Est. Patient 15:56:22 CDT Checo Conklin MD [facility] CPT-33446 Level 3 Est. Patient 15:29:07 CDT Checo Conklin MD [facility] CPT-80377 Level 3 Est. Patient 14:38:41 CDT Checo Conklin MD [facility] CPT-48633 Level 3 Est. Patient 15:22:03 INSULATION MACHINE OPERATOR Thomas reynolds DO [facility] CPT-59078 Level 3 Est. Patient 13:34:17 INSULATION MACHINE OPERATOR Checo Conklin MD [facility] CPT-10296 Level 3 Est. Patient 12:29:32 CDT Dangelo arroyo MD [facility] CPT-35656 Level 3 Est. Patient 16:53:02 CDT Checo Conklin MD [facility] CPT-58603 Level 3 Est. Patient 16:37:13 CDT Checo Conklin MD [facility] CPT-98046 Level 3 Est. Patient 16:16:59 CDT Paul Hamlin MD [facility] CPT-71536 Level 3 Est. Patient 14:20:13 CDT Dangelo arroyo MD [facility] CPT-86123 Level 4 Est. Patient 11:29:33 CDT Checo Conklin MD [facility] CPT-56413 Level 3 Est. Patient 17:08:31 CDT Checo Conklin MD [facility] CPT-23511 Level 3 Est. Patient 16:50:42 INSULATION MACHINE OPERATOR Checo Conklin MD [facility] CPT-15713 Level 4 Est. Patient 09:26:08 INSULATION MACHINE OPERATOR Checo Conklin MD [facility]-87169 Level 3 Est. Patient 11:37:10 CDT Checo Conklin MD [facility] CPT-04657 Level 4 Est. Patient 14:07:38 CDT Checo Conklin MD [facility] CPT-32222 Level 3 Est. Patient 09:54:41 CDT Checo Conklin MD [facility] CPT-28634 Level 3 Est. Patient 11:10:54 CDT Paul Hamlin MD [facility] CPT-94431 Level 3 Est. Patient 14:16:56 INSULATION MACHINE OPERATOR Checo Conklin MD [facility] CPT-51344 Level 3 Est. Patient 11:04:11 INSULATION MACHINE OPERATOR Checo Conklin MD [facility] CPT-46837 Level 3 Est. Patient 17:09:26 CDT Dangelo arroyo MD [facility] CPT-29012 Level 3 Est. Patient 16:54:37 CDT Checo Conklin MD [facility] Procedures Code Procedure Name Date Entry Date Standard Desc ription CPT-61724 UA w micro - LAB USE ONLY 17:06:46 CDT 2015 CPT-81807 BHCG Qual - LAB USE ONLY 17:06:46 CDT 05/06 CPT-77817 CMP - LAB USE ONLY 17:06:46 CDT CPT-37545 CBC with Diff - LAB USE ONLY 17:06:45 CDT 2 CPT-00734 Venipuncture Draw Fee 17:06:45 CDT CPT-LR Lesion Removal 19:53:27 CDT CPT-OV Office Visit 11:31:28 CDT CPT-35445 Tubersol 09:39:29 CDT CPT-J2550 Phenergan 25 mg (Promethazine) 13:59:02 INSULATION MACHINE OPERATOR CPT-J1885 Toradol 60 mg (Ketorolac) 13:59:02 INSULATION MACHINE OPERATOR 2012
--- OUTSIDE RECORDS SUMMARY | 2019-09-29 01:35 | XMS REPORT | Clinical Summary ---
Author Author Admin, Bethany Gonzales Organization [employer] Address Unknown Phone Unavailable Allergies, Adverse Reactions, [...] MD Abdominal pain, generalized Nausea 787.02 Resolved Chceo Conklin MD Nausea alone Helicobacter pylori gastritis [...] MD 2016 Pedal edema ICD-782.3 Inactive Checo Coknlin MD NEOPLASM OF UNCERTAIN BEHAVIOR OF SKIN [...] hours as needed for p ain IBUPROFEN [id number] Active Dangelo Rangel MD Acti ve PAROXETINE HCL 40 MG ORAL TABLET 1 po qd PAR OXETINE HCL 25646906853 Active Chceo Conklin MD Active MIRALAX ORAL POWDER 8.5 to 17g po qd PRN Constipation POLYETHYLENE GLYCOL 3350 [id number] No Longer Active Checo Conklin MD Active PROTONIX 40 MG ORAL TABLET DELAYED RELEASE 1 pill by [facility] daily, for acid reflux PANTOPRAZOLE SODIUM 11246522415 No Longer Activ e Corry Méndez LPN Active FLAGYL 500 MG ORAL TABLET 1 tablet by mouth bid 08/29 METRONIDAZOLE 17417566542 No Longer Active Corry Méndez LPN Active CLARITHROMYCIN 500 MG ORAL TABLET 1 tab po BID x 14 days CLARITHROMYCIN 70502022276 No Longer Active Corry Méndez LPN Active AMOXICILLIN 500 MG ORAL CAPSULE 2 po BID x 14 days for H. Pylori AMOXICILLIN 08967033111 No Longer Active Corry Méndez LPN Active FLUTICASONE PROPIONATE 50 MCG/ACT NASAL SUSPENSION 2 s prays/nostril qd PRN Congestion/Allergies FLUTICASONE PROPIONATE 5455709105 9 No Longer Active Checo Conklin MD Active AMOXICILLIN 500 MG ORAL CAPSULE 2 po BID x 10 days 201 01/15/27 AMOXICILLIN 73021434058 No Longer Active Checo Conklin MD Activ e CLARITIN 10 MG ORAL TABLET 1 tablet by mouth daily as needed for allergies LORATADINE 55630581892 No Longer Active Checo Ortiz MD Active BACTRIM DS 800-160 MG ORAL TABLET 1 tab by mouth twice daily 201 12/19/26 TRIMETHOPRIM-SULFAMETHOXAZOLE 34101003533 No Longer Active Ragini Carrillo MD Active DIFLUCAN 150 MG ORAL TABLET 1 tablet by mouth qod 2015 FLUCONAZOLE 68650141055 No Longer Active Efren Medel ASSOCIATE PROFESSOR OF EDUCATION Act mike AZITHROMYCIN 250 MG ORAL TABLET 2 po qd x 1 day, then 1 po q d x 4 days AZITHROMYCIN 83856806451 No Longer Active Efren flores ASSOCIATE PROFESSOR OF EDUCATION Active FLAGYL 500 MG ORAL TABLET 1 tablet by mouth bid 04/13 METRONIDAZOLE 26523117312 No Longer Active Checo Conklin MD Acti ve FOCALIN XR 10 MG ORAL CAPSULE EXTENDED RELEASE 24 HOUR 1 po q a.m. DEXMETHYLPHENIDATE HCL 47316253127 Active Checo Conklin MD Active MAGNESIUM CITRATE 1.745 GM/30ML ORAL SOLUTION 150ml po BID P RN Constipation MAGNESIUM CITRATE 58242353844 No Longer Active Checo Conklin MD Active BACTROBAN 2 % EXTERNAL CREAM Apply to affected area BID for up to 10 days MUPIROCIN CALCIUM 64472691781 No Longer Active Checo Conklin MD Active HYDROCODONE-ACETAMINOPHEN 5-325 MG ORAL TABLET 1 tab b y mouth every 6 hours as needed HYDROCODONE-ACETAMINOPHEN 24675883331 No Longer Active Checo Conklin MD Active IBUPROFEN 800 MG ORAL TABLET 1 tab every 8 hours with food 03/20 IBUPROFEN 60045241556 No Longer Active Checo Conklin MD Active DIFLUCAN 150 MG ORAL TABLET 1 tablet by mouth if neede d, hold until symptoms start FLUCONAZOLE 82230861252 No Longer Active Checo Conklin MD Active BACTRIM DS 800-160 MG ORAL TABLET 1 tab by mouth twice daily 201 11/23/03 TRIMETHOPRIM-SULFAMETHOXAZOLE 49022426237 No Longer Active K bernice Méndez, BUSINESS SUPPORT ADMINISTRATOR Active HYDROCODONE-ACETAMINOPHEN 5-325 MG ORAL TABLET 0.5 to 1 tab by mouth every 6 hours as needed HYDROCODONE-ACETAMINOPHEN 35131269975 No Longer Active Checo Conklin MD Active ONDANSETRON 8 MG ORAL TABLET DISINTEGRATING place one tablet on tongue and allow to dissolve every 6 hours as needed for vomitting ONDANSETRON 71919077920 No Longer Active Checo Conklin MD Activ e COMPRO 25 MG RECTAL SUPPOSITORY insert or apply one garza ppository rectally as directed every 12 hours as needed for nausea PROCHLORPERAZINE 23944756677 No Longer Active Checo Conklin MD A ctive SUMATRIPTAN SUCCINATE 100 MG ORAL TABLET Take one PRN for migran e SUMATRIPTAN SUCCINATE 20615600415 No Longer Active Cehco Conklin MD Active TRAVEL SICKNESS 25 MG ORAL TABLET CHEWABLE chew and sw allow one tablet every 6 hours as needed MECLIZINE HCL 05649437951 No Longer A ctive Checo Conklin MD Active BUPROPION HCL ER (SR) 100 MG ORAL TABLET EXTENDED RELE ASE 12 HOUR take one tablet by mouth one time daily for one week then take 1 two times daily BUPROPION HCL 86895368046 No Longer Active Checo gallagher MD Active TERBINAFINE HCL 250 MG ORAL TABLET take one table PO one time da moises TERBINAFINE HCL 36803116699 No Longer Active Checo Conklin MD Active METOCLOPRAMIDE HCL 10 MG ORAL TABLET take one PO tid PRN nausea METOCLOPRAMIDE HCL 46978941919 No Longer Active Checo Conklin MD Active DICLOFENAC SODIUM 75 MG ORAL TABLET DELAYED RELEASE 1 tablet by mouth twice daily PRN Knee pain DICLOFENAC SODIUM 15578087949 No Longer Active Checo Conklin MD Active LAMISIL 250 MG ORAL TABLET 1 po qd TERBINAFI NE HCL 27073775352 No Longer Active Checo Conklin MD Active REGLAN 10 MG ORAL TABLET 1 po TID PRN Nausea 3 METOCLOPRAMIDE HCL 62768298771 No Longer Active Checo Conklin MD Active CELEXA 20 MG ORAL TABLET 1 tablet by mouth daily 09/26 CITALOPRAM HYDROBROMIDE 95095963962 No Longer Active Checo Conklin MD Active AZITHROMYCIN 250 MG ORAL TABLET 2 po qd x 1 day, then 1 po q d x 4 days AZITHROMYCIN 96515215713 No Longer Active Checo Ortiz MD Active HYDROCODONE-ACETAMINOPHEN 5-325 MG ORAL TABLET 1 po q 6hr PRN Pa in HYDROCODONE-ACETAMINOPHEN 04645400689 No Longer Active Lenora Conklin MD Active PHENAZOPYRIDINE HCL 200 MG ORAL TABLET take 1 tab po TID for bladder pain PHENAZOPYRIDINE HCL 35440367933 No Longer Active Joe Conklin MD Active CIPRO 500 MG ORAL TABLET 1 tablet by mouth twice daily CIPROFLOXACIN HCL 48594704058 No Longer Active Dangelo Rangel MD Active HYDROCODONE-ACETAMINOPHEN 5-325 MG ORAL TABLET 1/2 to 1 po q 4 hours prn cough HYDROCODONE-ACETAMINOPHEN 25675768935 No Longer Activ e Dangelo Rangel MD Active BACTRIM DS 800-160 MG ORAL TABLET 1 po BID x 7 days 29/04/10 SULFAMETHOXAZOLE-TRIMETHOPRIM 88391267332 No Longer Active Checo Conklin MD Active PREDNISONE 20 MG ORAL TABLET 2 tabs daily for 3 days, 1 tab daily for 3 days, 1/2 tab daily for 2 days PREDNISONE 36197798780 No Longer Active Checo Conklin MD Active TRIAMCINOLONE ACETONIDE 0.1 % EXTERNAL OINTMENT Apply to affected areas TID for up to 2 weeks TRIAMCINOLONE ACETONIDE 77621074552 No Longer Active Checo Conklin MD Active CEFDINIR 300 MG ORAL CAPSULE by mouth twice a day 2013 CEFDINIR 50455845913 No Longer Active Dangelo Rangel MD Acti ve BUPROPION HCL ER (SMOKING DET) 150 MG ORAL TABLET EXTE NDED RELEASE 12 HOUR 1 a day for 1 week then 1 twice a day BUPROPION HCL (SMOKING DETER) 40287368096 No Longer Active Checo Conklin MD Active SIMVASTATIN 20 MG ORAL TABLET 1 po qd SIMVASTAT IN 24367904304 Active Checo Conklin MD Active CHANTIX STARTING MONTH KARTHIK 0.5 MG X 11 & 1 MG X 42 ORA L TABLET 0.5mg daily for 3 days, then 0.5mg BID for 4 days, then 1mg BID VARENICLINE TARTRATE 21784629556 No Longer Active Checo Conklin MD Activ e XANAX 0.5 MG ORAL TABLET 1 po BID PRN anxiety A LPRAZOLAM 57670880173 Active Checo Conklin MD Active CONCERTA 18 MG ORAL TABLET EXTENDED RELEASE 1 po q a.m. METHYLPHENIDATE HCL 90048041265 No Longer Active Checo Conklin MD Active AMBIEN 5 MG ORAL TABLET 1 po qHS PRN Insomnia Z OLPIDEM TARTRATE 87092725037 Active Checo Conklin MD Active TRAZODONE HCL 100 MG ORAL TABLET 0.5 to 1 po qHS PRN Insomnia 20 30/07/08 TRAZODONE HCL 06441092366 No Longer Active Checo Conklin MD Active FIORICET 325-50-40 MG TAB 1 tablet by mouth four times daily as needed [id number] 37478047077 No Longer Active Checo Conklin MD Active PHENERGAN CREAM* 25mg applied to wrist q6hr PRN Nausea PHENERGAN CREAM* No Longer Active Checo Gonzales ctive FLONASE 50 MCG/ACT NASAL SUSPENSION 1 spray each nostril am and hs FLUTICASONE PROPIONATE 55603436566 No Longer Active Checo Conklin MD Active ANTIPYRINE-BENZOCAINE 5.4-1.4 % OTIC SOLUTION 1-2 drops in affec yohannes ear BENZOCAINE-ANTIPYRINE 17963594648 No Longer Active Checo Conklin MD Active CEFDINIR 300 MG ORAL CAPSULE 1 po bid CEFDINIR 87024922531 No Longer Active Checo Conklin MD Active PREDNISONE 20 MG ORAL TABLET 2 tabs daily for 3 days, 1 tab daily for 3 days, 1/2 tab daily for 2 days PREDNISONE 16423251838 No Longer Active Checo Conklin MD Active AZITHROMYCIN 250 MG ORAL TABLET 2 po qd x 1 day, then 1 po q d x 4 days AZITHROMYCIN 41203540389 No Longer Active Checo Ortiz MD Active PREDNISONE 20 MG ORAL TABLET 2 tabs daily for 3 days, 1 tab daily for 3 days, 1/2 tab daily for 2 days PREDNISONE 65446268699 No Longer Active Chceo Conklin MD Active ZITHROMAX Z-KARTHIK 250 MG ORAL TABLET 2 today, then 1 daily for 4 d ays AZITHROMYCIN 84285689780 No Longer Active Paul Hamlin MD Active FOCALIN XR 10 MG ORAL CAPSULE EXTENDED RELEASE 24 HOUR 1 po q a. m. DEXMETHYLPHENIDATE HCL 69566811456 No Longer Active Paul Hamlin MD Active PERCOCET 10-325 MG ORAL TABLET 1 tablet every 6 hours as needed for pain OXYCODONE-ACETAMINOPHEN 24670859285 No Longer Active Paul Hamlin MD Active LORTAB 5-500 MG ORAL TABLET 1/2 to 1 tablet by mouth e very 4 hours as needed for pain HYDROCODONE-ACETAMINOPHEN 25104710288 No Longer Active Checo Conklin MD Active FOCALIN XR 15 MG ORAL CAPSULE EXTENDED RELEASE 24 HOUR 1 po q a. m. DEXMETHYLPHENIDATE HCL 77708400736 No Longer Active Checo Conklin MD Active ZOFRAN ODT 4 MG ORAL TABLET DISINTEGRATING 1 po q6hr PRN Nausea ONDANSETRON 77598525500 No Longer Active Checo Conklin MD Active PERCOCET 5-325 MG ORAL TABLET 1 tablet by mouth every 6 hour s as needed OXYCODONE-ACETAMINOPHEN 56641368974 No Longer Active Checo Conklin MD Active PYRIDIUM 200 MG ORAL TABLET take 1 tab po TID prn urinary pain. PHENAZOPYRIDINE HCL 40768107383 No Longer Active Checo Joshua Active FLUCONAZOLE 150 MG ORAL TABLET take 1 tab po qday once FLUCONAZOLE 47016491918 No Longer Active Dangelo Rangel MD Acti ve CIPRO 500 MG ORAL TABLET 1 tablet by mouth twice daily CIPROFLOXACIN HCL 78948014787 No Longer Active Dangelo Rangel MD Active PYRIDIUM 200 MG ORAL TABLET take 1 tab po TID prn urinary pain. PYRIDIUM 200 MG ORAL TABLET 7632402 PHENAZOPYRIDINE HCL Inactive PERCOCET 5-325 MG ORAL TABLET 1 tablet by mouth every 6 hour s as needed PERCOCET 5-325 MG ORAL TABLET 3623465 OXYCODONE-ACETAMINOPHEN Inactive ZOFRAN ODT 4 MG ORAL TABLET DISINTEGRATING 1 po q6hr PRN Nausea ZOFRAN ODT 4 MG ORAL TABLET DISINTEGRATING 220883 ONDAN SETRON Inactive FOCALIN XR 15 MG [...] for pain PERCOCET 10-325 MG ORAL TABLET 9716193 OXYCODONE-ACETAMI NOPHEN Inactive FOCALIN XR 10 MG ORAL CAPSULE EXTENDED RELEASE 24 HOUR 1 po q a. m. FOCALIN XR 10 MG ORAL CAPSULE EXTENDED RELEASE 24 HOUR DEXMETHYLPHENIDATE HCL Inactive CEFDINIR 300 MG ORAL CAPSULE 1 po bid CEFDINI R 300 MG ORAL CAPSULE 054613 CEFDINIR Inactive ANTIPYRINE-BENZOCAINE 5.4-1.4 % OTIC SOLUTION 1-2 drops in affec yohannes ear ANTIPYRINE-BENZOCAINE 5.4-1.4 % OTIC SOLUTION 375994 BENZOCAINE-ANTIPYRINE Inactive FLONASE 50 MCG/ACT NASAL SUSPENSION 1 spray each nostril am and hs FLONASE 50 MCG/ACT NASAL SUSPENSION 7585841 FLUTICASONE PROPIONATE I nactive PHENERGAN CREAM* 25mg applied to wrist q6hr PRN Nausea PHENERGAN CREAM* Inactive FIORICET 325-50-40 MG TAB 1 tablet by mouth four times daily as needed FIORICET 325-50-40 MG TAB ACETAMINOPHEN-C AFF-BUTALBITAL Inactive TRAZODONE HCL 100 MG ORAL TABLET 0.5 to 1 po qHS PRN Insomnia 20 30/07/08 TRAZODONE HCL 100 MG ORAL TABLET 353625 TRAZODONE HCL Inactive CONCERTA 18 MG ORAL [...] cough HYDROCODONE-ACETAMINOPHEN 5-325 MG ORAL TABLET 8 37896 HYDROCODONE-ACETAMINOPHEN Inactive PHENAZOPYRIDINE HCL 200 MG ORAL TABLET take 1 tab po TID for bladder pain PHENAZOPYRIDINE HCL 200 MG ORAL TABLET 0183345 PHENAZOPYRIDINE HCL Inactive HYDROCODONE-ACETAMINOPHEN 5-325 MG ORAL TABLET 1 po q 6hr PRN Pa in HYDROCODONE-ACETAMINOPHEN 5-325 MG ORAL TABLET 347952 HYDROCODONE-ACETAMINOPHEN Inactive CELEXA 20 MG ORAL TABLET 1 tablet by mouth daily 09/26 CELEXA 20 MG ORAL TABLET 649446 CITALOPRAM HYDROBROMIDE Inactive REGLAN 10 MG ORAL TABLET 1 po TID PRN Nausea 3 REGLAN 10 MG ORAL TABLET 145522 METOCLOPRAMIDE HCL Inactive LAMISIL 250 MG ORAL TABLET 1 po qd L AMISIL 250 MG ORAL TABLET 319837 TERBINAFINE HCL Inactive DICLOFENAC SODIUM 75 MG ORAL TABLET DELAYED RELEASE 1 tablet by mouth twice daily PRN Knee pain DICLOFENAC SODIUM 75 MG ORAL TABLET DELAYED RELEASE 594148 DICLOFENAC SODIUM Inactive METOCLOPRAMIDE HCL 10 MG ORAL TABLET take one PO tid PRN nausea METOCLOPRAMIDE HCL 10 MG ORAL TABLET 879276 METOCLOPRAM ZACH HCL Inactive TERBINAFINE HCL 250 MG ORAL TABLET take one table PO one time da moises TERBINAFINE HCL 250 MG ORAL TABLET 775830 TERBINAFINE H CL Inactive BUPROPION HCL ER [...] SICKNESS 25 M G ORAL TABLET CHEWABLE 121430 MECLIZINE HCL Inactive SUMATRIPTAN SUCCINATE 100 MG ORAL TABLET Take one PRN for migran e SUMATRIPTAN SUCCINATE 100 MG ORAL TABLET 320254 SUMATRIPTAN SUCCINATE Inactive COMPRO 25 MG RECTAL SUPPOSITORY insert or apply one garza ppository rectally as directed every 12 hours as needed for nausea COMPRO 25 MG RECTAL SUPPOSITORY 429021 PROCHLORPERAZINE Inactive ONDANSETRON 8 MG ORAL TABLET DISINTEGRATING place one tablet on tongue and allow to dissolve every 6 hours as needed for vomitting ONDANSETRON 8 MG ORAL TABLET DISINTEGRATING 935719 ONDANSETRON Inactive HYDROCODONE-ACETAMINOPHEN 5-325 MG ORAL TABLET 0.5 to 1 tab by mouth every 6 hours as needed HYDROCODONE-ACETAMIN OPHEN 5-325 MG ORAL TABLET 578466 HYDROCODONE-ACETAMINOPHEN Inactive BACTRIM DS 800-160 MG ORAL TABLET 1 tab by mouth twice daily 201 11/23/03 BACTRIM DS 800-160 MG ORAL TABLET 19820918 TRIMETHOPRIM-SULFAMETHOXAZOLE Inactive DIFLUCAN 150 MG ORAL TABLET 1 tablet by mouth if neede d, hold until symptoms start DIFLUCAN 150 MG ORAL TABLET 740185 FLUCONAZ OLE Inactive IBUPROFEN 800 MG ORAL TABLET 1 tab every 8 hours with food 03/20 IBUPROFEN 800 MG ORAL TABLET 615466 IBUPROFEN [place] ctive HYDROCODONE-ACETAMINOPHEN 5-325 MG ORAL TABLET 1 tab b y mouth every 6 hours as needed HYDROCODONE-ACETAMINOPHEN 5-325 MG ORAL TABLET 271920 HYDROCODONE-ACETAMINOPHEN Inactive BACTROBAN 2 % EXTERNAL CREAM Apply to affected area BID for up to 10 days BACTROBAN 2 % EXTERNAL CREAM 533625 MUPIROCIN CA LCIUM Inactive MAGNESIUM CITRATE 1.745 GM/30ML ORAL SOLUTION 150ml po BID P RN Constipation MAGNESIUM CITRATE 1.745 GM/30ML ORAL SOLUTION 10 48144 MAGNESIUM CITRATE Inactive DIFLUCAN 150 MG ORAL TABLET 1 tablet by mouth qod 2015 DIFLUCAN 150 MG ORAL TABLET 395295 FLUCONAZOLE Inactive BACTRIM DS 800-160 MG ORAL TABLET 1 tab by mouth twice daily 201 12/19/26 BACTRIM DS 800-160 MG ORAL TABLET 757394 TRIMETHOPRIM-SULFAMETHOXAZOLE Inactive CLARITIN 10 MG ORAL TABLET 1 tablet by mouth daily as needed for allergies CLARITIN 10 MG ORAL TABLET 348647 LORATADINE I nactive FLUTICASONE PROPIONATE 50 MCG/ACT NASAL SUSPENSION 2 s prays/nostril qd PRN Congestion/Allergies FLUTICASONE PROPION ATE 50 MCG/ACT NASAL SUSPENSION 6995835 FLUTICASONE PROPIONATE Inactive MIRALAX ORAL POWDER 8.5 to 17g po qd PRN Constipation MIRALAX ORAL POWDER 639185 POLYETHYLENE GLYCOL 3350 Inactive CIPRO 500 MG ORAL TABLET 1 tablet by mouth twice daily CIPRO 500 MG ORAL TABLET 849621 CIPROFLOXACIN HCL Inactive FLUCONAZOLE 150 MG ORAL TABLET take 1 tab po qday once FLUCONAZOLE 150 MG ORAL TABLET 869735 FLUCONAZOLE Inactive ZITHROMAX Z-KARTHIK 250 MG ORAL TABLET 2 today, then 1 daily for 4 d ays ZITHROMAX Z-KARTHIK 250 MG ORAL TABLET 347012 AZITHROMYCIN Inactive PREDNISONE 20 MG ORAL TABLET 2 tabs daily for 3 days, 1 tab daily for 3 days, 1/2 tab daily for 2 days PREDNISONE 20 MG ORAL T ABLET 033246 PREDNISONE Inactive AZITHROMYCIN 250 MG ORAL TABLET 2 po qd x 1 day, then 1 po q d x 4 days AZITHROMYCIN 250 MG ORAL TABLET 195594 AZITHROMY SPARKLE Inactive PREDNISONE 20 MG ORAL TABLET 2 tabs daily for 3 days, 1 tab daily for 3 days, 1/2 tab daily for 2 days PREDNISONE 20 MG ORAL TABLET 232816 PREDNISONE Inactive CEFDINIR 300 MG ORAL CAPSULE by mouth twice a day 2013 CEFDINIR 300 MG ORAL CAPSULE 487606 CEFDINIR Inactive TRIAMCINOLONE ACETONIDE 0.1 % EXTERNAL OINTMENT Apply to affected areas TID for up to 2 weeks TRIAMCINOLONE ACETON ZACH 0.1 % EXTERNAL OINTMENT 1050206 TRIAMCINOLONE ACETONIDE Inactive PREDNISONE 20 MG ORAL TABLET 2 tabs daily for 3 days, 1 tab daily for 3 days, 1/2 tab daily for 2 days PREDNISONE 20 MG ORAL T ABLET 917044 PREDNISONE Inactive BACTRIM DS 800-160 MG ORAL TABLET 1 po BID x 7 days 29/04/10 BACTRIM DS 800-160 MG ORAL TABLET 697961 SULFAMETHOXAZOLE-TRIMETHOP RIM Inactive CIPRO 500 MG ORAL TABLET 1 tablet by mouth twice daily CIPRO 500 MG ORAL TABLET 724729 CIPROFLOXACIN HCL Inactive AZITHROMYCIN 250 MG ORAL TABLET 2 po qd x 1 day, then 1 po q d x 4 days AZITHROMYCIN 250 MG ORAL TABLET 649474 AZITHROMY SPARKLE Inactive FLAGYL 500 MG ORAL TABLET 1 tablet by mouth bid 04/13 FLAGYL 500 MG ORAL TABLET 945258 METRONIDAZOLE Inactive AZITHROMYCIN 250 MG ORAL TABLET 2 po qd x 1 day, then 1 po q d x 4 days AZITHROMYCIN 250 MG ORAL TABLET 047243 AZITHROMY SPARKLE Inactive AMOXICILLIN 500 MG ORAL CAPSULE 2 po BID x 10 days 201 01/15/27 AMOXICILLIN 500 MG ORAL CAPSULE 095432 AMOXICILLIN Inactive AMOXICILLIN 500 MG ORAL CAPSULE 2 po BID x 14 days for H. Pylori AMOXICILLIN 500 MG ORAL CAPSULE 285020 AMOXICILLIN Inactive CLARITHROMYCIN 500 MG ORAL TABLET 1 tab po BID x 14 days CLARITHROMYCIN 500 MG ORAL TABLET 768823 CLARITHROMYCIN Inacti ve FLAGYL 500 MG ORAL TABLET 1 tablet by mouth bid 08/29 FLAGYL 500 MG ORAL TABLET 952759 METRONIDAZOLE Inactive PROTONIX 40 MG ORAL TABLET DELAYED RELEASE 1 pill by m outh daily, for acid reflux PROTONIX 40 MG ORAL TABLET DELAYED RELEAS E 834310 PANTOPRAZOLE SODIUM Inactive Immunizations Vaccine Administration Date [...] ... - Chemistry sodium, serum 139 mmol/L 157-671 3543/11/28 carbon dioxide, venous blood 26.0 mmol/L 21.0-32 [...] 5.0-8.5 Encounters Code Encounter Date Provider Facility CPT-60767 [id number] Vst-Est Level III 09:37:41 CDT Dangelo Rangel MD [facility] CPT-21000 Level 4 Est. Patient 08:57:51 CAGE CLERK Checo Conklin MD [facility] CPT-88672 Level 3 Est. Patient 11:24:55 CAGE CLERK Efren almendarez [facility] CPT-88782 Level 3 Est. Patient 13:05:44 CDT Paul Hamlin MD [facility] CPT-33924 Level 3 Est. Patient 11:29:55 CDT Checo Conklin MD [facility] CPT-29576 Level 4 Est. Patient 11:08:12 CAGE CLERK Checo Conklin MD [facility] CPT-92266 Level 4 Est. Patient 16:06:48 CAGE CLERK Checo Conklin MD [facility] CPT-12334 Level 3 Est. Patient 09:11:49 CDT Efren almendarez [facility] CPT-79312 Level 2 Est. Patient 19:53:27 CDT Tanner hill MD [facility] CPT-07024 Level 3 Est. Patient 09:15:34 CDT Efren almendarez [facility] CPT-85888 Level 3 Est. Patient 11:28:51 CAGE CLERK Efren almendarez [facility] CPT-54756 Level 4 Est. Patient 13:55:46 CAGE CLERK Checo Conklin MD [facility] CPT-16899 Level 4 Est. Patient 17:10:53 CDT Checo Conklin MD [facility] CPT-50783 Level 3 Est. Patient 15:56:22 CDT Checo Conklin MD [facility] CPT-62187 Level 3 Est. Patient 15:29:07 CDT Checo Conklin MD [facility] CPT-53146 Level 3 Est. Patient 14:38:41 CDT Checo Conklin MD [facility] CPT-97415 Level 3 Est. Patient 15:22:03 CAGE CLERK Thomas reynolds DO [facility] CPT-64892 Level 3 Est. Patient 13:34:17 CAGE CLERK Checo Conklin MD [facility] CPT-86107 Level 3 Est. Patient 12:29:32 CDT Dangelo arroyo MD [facility] CPT-96717 Level 3 Est. Patient 16:53:02 CDT Checo Conklin MD [facility] CPT-86150 Level 3 Est. Patient 16:37:13 CDT Checo Conklin MD [facility] CPT-99426 Level 3 Est. Patient 16:16:59 CDT Paul Hamlin MD [facility] CPT-40968 Level 3 Est. Patient 14:20:13 CDT Dangelo arroyo MD [facility] CPT-94982 Level 4 Est. Patient 11:29:33 CDT Checo Conklin MD [facility] CPT-13400 Level 3 Est. Patient 17:08:31 CDT Checo Conklin MD [facility] CPT-97885 Level 3 Est. Patient 16:50:42 CAGE CLERK Checo Conklin MD [facility] CPT-93348 Level 4 Est. Patient 09:26:08 CAGE CLERK Checo Conklin MD [facility] CPT-39890 Level 3 Est. Patient 11:37:10 CDT Checo Conklin MD [facility] CPT-53385 Level 4 Est. Patient 14:07:38 CDT Checo Conklin MD [facility] CPT-46748 Level 3 Est. Patient 09:54:41 CDT Checo Conklin MD [facility] CPT-94980 Level 3 Est. Patient 11:10:54 CDT Paul Hamlin MD [facility] CPT-96735 Level 3 Est. Patient 14:16:56 CAGE CLERK Checo Conklin MD [facility] CPT-68066 Level 3 Est. Patient 11:04:11 CAGE CLERK Checo Conklin MD [facility] CPT-03756 Level 3 Est. Patient 17:09:26 CDT Dangelo arroyo MD [facility] CPT-90484 Level 3 Est. Patient 16:54:37 CDT Checo Conklin MD [facility] Procedures Code Procedure Name Date Entry Date Standard Desc ription CPT-44196 Wrist, right, comp 3V - XRAY USE ONLY 09:24:31 CDT CPT-37947 Abd compl w upright - XRAY USE ONLY 1 1:36:54 CAGE CLERK CPT-26626 UA w micro - LAB USE ONLY 17:06:46 CDT 2015 CPT-54461 [facility] Qual - LAB USE ONLY 17:06:46 CDT 05/06 CPT-23569 CMP - LAB USE ONLY 17:06:46 CDT CPT-96355 CBC with Diff - LAB USE ONLY 17:06:45 CDT 2 CPT-88746 Venipuncture Draw Fee 17:06:45 CDT CPT-LR Lesion Removal 19:53:27 CDT CPT-OV Office Visit 11:31:28 CDT CPT-20046 Tubersol 09:39:29 CDT CPT-J2550 Phenergan 25 mg (Promethazine) 13:59:02 CAGE CLERK CPT-J1885 Toradol 60 mg (Ketorolac) 13:59:02 CAGE CLERK 2012
--- OUTSIDE RECORDS SUMMARY | 2019-09-29 01:36 | XMS REPORT | Clinical Summary ---
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 [facility] AMOXICILLIN 48039376145 Active Corry Méndez LPN Active PAROXETINE HCL 20 MG ORAL TABLET 1.5 po qd PAR OXETINE HCL 65517206545 Active Checo Conklin MD Active FLUTICASONE PROPIONATE 50 MCG/ACT NASAL SUSPENSION 2 s prays/nostril qd PRN Congestion/Allergies FLUTICASONE PROPIONATE 7637991921 9 No Longer Active Checo Conklin MD Active AMOXICILLIN 500 MG ORAL CAPSULE 2 po BID x 10 days 201 01/15/27 AMOXICILLIN 47625789297 No Longer Active Checo Conklin MD Activ e MIRALAX ORAL POWDER 8.5 to 17g po qd PRN Constipation POLYETHYLENE GLYCOL 3350 92105246383 Active Checo Conklin MD Active CLARITIN 10 MG ORAL TABLET 1 tablet by mouth daily as needed for allergies LORATADINE 34557399083 No Longer Active Checo Ortiz MD Active BACTRIM DS 800-160 MG ORAL TABLET 1 tab by mouth twice daily 201 12/19/26 TRIMETHOPRIM-SULFAMETHOXAZOLE 27670739266 No Longer Active Ragini Carrillo MD Active DIFLUCAN 150 MG ORAL TABLET 1 tablet by mouth qod 2015 FLUCONAZOLE 31673716848 No Longer Active 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 DEXMETHYLPHENIDATE HCL 58076546753 Active Checo Conklin MD Active MAGNESIUM CITRATE 1.745 GM/30ML ORAL SOLUTION 150ml po BID P RN Constipation MAGNESIUM CITRATE 75726418475 No Longer Active Checo Conklin MD Active BACTROBAN 2 % EXTERNAL CREAM Apply to affected area BID for up to 10 days MUPIROCIN CALCIUM 21892399018 No Longer Active Checo Conklin MD Active HYDROCODONE-ACETAMINOPHEN 5-325 MG ORAL TABLET 1 tab b y mouth every 6 hours as needed HYDROCODONE-ACETAMINOPHEN 91468925633 No Longer Active Checo Conklin MD Active IBUPROFEN 800 MG ORAL TABLET 1 tab every 8 hours with food 03/20 IBUPROFEN 91692820853 No Longer Active Checo Conklin MD Active DIFLUCAN 150 MG ORAL TABLET 1 tablet by mouth if neede d, hold until symptoms start FLUCONAZOLE 96983882734 No Longer Active Checo Conklin MD Active BACTRIM DS 800-160 MG ORAL TABLET 1 tab by mouth twice daily 201 11/23/03 TRIMETHOPRIM-SULFAMETHOXAZOLE 20090166047 No Longer Active K bernice Méndez LPN Active HYDROCODONE-ACETAMINOPHEN 5-325 MG ORAL TABLET 0.5 to 1 tab by mouth every 6 hours as needed HYDROCODONE-ACETAMINOPHEN 48012172505 No Longer Active Checo Conklin MD Active ONDANSETRON 8 MG ORAL TABLET DISINTEGRATING place one tablet on tongue and allow to dissolve every 6 hours as needed for vomitting ONDANSETRON 37968535799 No Longer Active Checo Conklin MD Activ e COMPRO 25 MG RECTAL SUPPOSITORY insert or apply one garza ppository rectally as directed every 12 hours as needed for nausea PROCHLORPERAZINE 26398398282 No Longer Active Checo Conklin MD A ctive SUMATRIPTAN SUCCINATE 100 MG ORAL TABLET Take one PRN for migran e SUMATRIPTAN SUCCINATE 75707181886 No Longer Active Checo Conklin MD Active TRAVEL SICKNESS 25 MG ORAL TABLET CHEWABLE chew and sw allow one tablet every 6 hours as needed MECLIZINE HCL 64025169256 No Longer A ctive Checo Conklin MD Active BUPROPION HCL ER (SR) 100 MG ORAL TABLET EXTENDED RELE ASE 12 HOUR take one tablet by mouth one time daily for one week then take 1 two times daily BUPROPION HCL 28769876327 No Longer Active Checo gallagher MD Active TERBINAFINE HCL 250 MG ORAL TABLET take one table PO one time da moises TERBINAFINE HCL 11238838801 No Longer Active Checo Conklin MD Active METOCLOPRAMIDE HCL 10 MG ORAL TABLET take one PO tid PRN nausea METOCLOPRAMIDE HCL 74741941888 No Longer Active Checo Conklin MD Active DICLOFENAC SODIUM 75 MG ORAL TABLET DELAYED RELEASE 1 tablet by mouth twice daily PRN Knee pain DICLOFENAC SODIUM 11826930912 No Longer Active Checo Conklin MD Active LAMISIL 250 MG ORAL TABLET 1 po qd TERBINAFI NE HCL 38910482662 No Longer Active Checo Conklin MD Active REGLAN 10 MG ORAL TABLET 1 po TID PRN Nausea 3 METOCLOPRAMIDE HCL 85251850502 No Longer Active Checo Conklin MD Active CELEXA 20 MG ORAL TABLET 1 tablet by mouth daily 09/26 CITALOPRAM HYDROBROMIDE 02188652074 No Longer Active Checo Conklin MD Active AZITHROMYCIN 250 MG ORAL TABLET 2 po qd x 1 day, then 1 po q d x 4 days AZITHROMYCIN 56707618927 No Longer Active Checo Ortiz MD Active HYDROCODONE-ACETAMINOPHEN 5-325 MG ORAL TABLET 1 po q 6hr PRN Pa in HYDROCODONE-ACETAMINOPHEN 07152530115 No Longer Active Lenora Conklin MD Active PHENAZOPYRIDINE HCL 200 MG ORAL TABLET take 1 tab po TID for bladder pain PHENAZOPYRIDINE HCL 08449300215 No Longer Active Joe Conklin MD Active CIPRO 500 MG ORAL TABLET 1 tablet by mouth twice daily CIPROFLOXACIN HCL 60787916735 No Longer Active Dangelo Rangel MD Active HYDROCODONE-ACETAMINOPHEN 5-325 MG ORAL TABLET 1/2 to 1 po q 4 hours prn cough HYDROCODONE-ACETAMINOPHEN 52469413506 No Longer Activ candy Rangel MD Active BACTRIM DS 800-160 MG ORAL TABLET 1 po BID x 7 days 29/04/10 SULFAMETHOXAZOLE-TRIMETHOPRIM 22747887784 No Longer Active Checo Conklin MD Active PREDNISONE 20 MG ORAL TABLET 2 tabs daily for 3 days, 1 tab daily for 3 days, 1/2 tab daily for 2 days PREDNISONE 27857701135 No Longer Active Checo Conklin MD Active TRIAMCINOLONE ACETONIDE 0.1 % EXTERNAL OINTMENT Apply to affected areas TID for up to 2 weeks TRIAMCINOLONE ACETONIDE 54721530865 No Longer Active Checo Conklin MD Active CEFDINIR 300 MG ORAL CAPSULE by mouth twice a day 2013 CEFDINIR 34488624270 No Longer Active Dangelo Rangel MD Acti ve BUPROPION HCL ER (SMOKING DET) 150 MG ORAL TABLET EXTE NDED RELEASE 12 HOUR 1 a day for 1 week then 1 twice a day BUPROPION HCL (SMOKING DETER) 11320159980 No Longer Active Checo Conklin MD Active SIMVASTATIN 20 MG ORAL TABLET 1 po qd SIMVASTAT IN 32922154878 Active Checo Conklin MD Active CHANTIX STARTING MONTH KARTHIK 0.5 MG X 11 & 1 MG X 42 ORA L TABLET 0.5mg daily for 3 days, then 0.5mg BID for 4 days, then 1mg BID VARENICLINE TARTRATE 99729468052 No Longer Active Checo Conklin MD Activ e XANAX 0.5 MG ORAL TABLET 1 po BID PRN anxiety A LPRAZOLAM 60394642242 Active Checo Conklin MD Active CONCERTA 18 MG ORAL TABLET EXTENDED RELEASE 1 po q a.m. METHYLPHENIDATE HCL 37740644207 No Longer Active Checo Conklin MD Active AMBIEN 5 MG ORAL TABLET 1 po qHS PRN Insomnia Z OLPIDEM TARTRATE 39685262450 Active Checo Conklin MD Active TRAZODONE HCL 100 MG ORAL TABLET 0.5 to 1 po qHS PRN Insomnia 20 30/07/08 TRAZODONE HCL 48519630927 No Longer Active Checo Conklin MD Active FIORICET 325-50-40 MG TAB 1 tablet by mouth four times daily as needed [id number]-ACTG-ELEGZOJAYS 73350154907 No Longer Active Checo Conklin MD Active PHENERGAN CREAM* 25mg applied to wrist q6hr PRN Nausea PHENERGAN CREAM* No Longer Active Checo Conklin MD A ctive FLONASE 50 MCG/ACT NASAL SUSPENSION 1 spray each nostril am and hs FLUTICASONE PROPIONATE 49382790657 No Longer Active Checo Conklin MD Active ANTIPYRINE-BENZOCAINE 5.4-1.4 % OTIC SOLUTION 1-2 drops in affec yohannes ear BENZOCAINE-ANTIPYRINE 07714306406 No Longer Active Checo Conklin MD Active CEFDINIR 300 MG ORAL CAPSULE 1 po bid CEFDINIR 06687700473 No Longer Active Checo Conklin MD Active PREDNISONE 20 MG ORAL TABLET 2 tabs daily for 3 days, 1 tab daily for 3 days, 1/2 tab daily for 2 days PREDNISONE 94155956530 No Longer Active Checo Conklin MD Active AZITHROMYCIN 250 MG ORAL TABLET 2 po qd x 1 day, then 1 po q d x 4 days AZITHROMYCIN 23612206597 No Longer Active Checo Ortiz MD Active PREDNISONE 20 MG ORAL TABLET 2 tabs daily for 3 days, 1 tab daily for 3 days, 1/2 tab daily for 2 days PREDNISONE 10796765909 No Longer Active Checo Conklin MD Active ZITHROMAX Z-KARTHIK 250 MG ORAL TABLET 2 today, then 1 daily for 4 d ays AZITHROMYCIN 78132928133 No Longer Active Paul Hamlin MD Active FOCALIN XR 10 MG ORAL CAPSULE EXTENDED RELEASE 24 HOUR 1 po q a. m. DEXMETHYLPHENIDATE HCL 75258914659 No Longer Active Paul Hamlin MD Active PERCOCET 10-325 MG ORAL TABLET 1 tablet every 6 hours as needed for pain OXYCODONE-ACETAMINOPHEN 48627179140 No Longer Active Paul Hamlin MD Active LORTAB 5-500 MG ORAL TABLET 1/2 to 1 tablet by mouth e very 4 hours as needed for pain HYDROCODONE-ACETAMINOPHEN 38990859855 No Longer Active Checo Conklin MD Active FOCALIN XR 15 MG ORAL CAPSULE EXTENDED RELEASE 24 HOUR 1 po q a. m. DEXMETHYLPHENIDATE HCL 63934368874 No Longer Active Checo Conklin MD Active ZOFRAN ODT 4 MG ORAL TABLET DISINTEGRATING 1 po q6hr PRN Nausea ONDANSETRON 29180937686 No Longer Active Checo Conklin MD Active PERCOCET 5-325 MG ORAL TABLET 1 tablet by mouth every 6 hour s as needed OXYCODONE-ACETAMINOPHEN 64827912273 No Longer Active Checo Conklin MD Active PYRIDIUM 200 MG ORAL TABLET take 1 tab po TID prn urinary pain. PHENAZOPYRIDINE HCL 69064102054 No Longer Active Checo Joshua Active FLUCONAZOLE 150 MG ORAL TABLET take 1 tab po qday once FLUCONAZOLE 21344154642 No Longer Active Dangelo Rangel MD Acti ve CIPRO 500 MG ORAL TABLET 1 tablet by mouth twice daily CIPROFLOXACIN HCL 98830481511 No Longer Active Dangelo Rangel MD Active PYRIDIUM 200 MG ORAL TABLET take 1 tab po TID prn urinary pain. PYRIDIUM 200 MG ORAL TABLET 0272368 PHENAZOPYRIDINE HCL Inactive PERCOCET 5-325 MG ORAL TABLET 1 tablet by mouth every 6 hour s as needed PERCOCET 5-325 MG ORAL TABLET 2761160 OXYCODONE-ACETAMINOPHEN Inactive ZOFRAN ODT 4 MG ORAL TABLET DISINTEGRATING 1 po q6hr PRN Nausea ZOFRAN ODT 4 MG ORAL TABLET DISINTEGRATING 203950 ONDAN SETRON Inactive FOCALIN XR 15 MG ORAL CAPSULE EXTENDED RELEASE 24 HOUR 1 po q a. m. FOCALIN XR 15 MG ORAL CAPSULE EXTENDED RELEASE 24 HOUR DEXMETHYLPHENIDATE HCL Inactive LORTAB 5-500 MG ORAL TABLET 1/2 to 1 tablet by mouth e very 4 hours as needed for pain LORTAB 5-500 MG ORAL TABLET 156577 HYDROCODONE-ACETAMINOPHEN Inactive PERCOCET 10-325 MG ORAL TABLET 1 tablet every 6 hours as needed for pain PERCOCET 10-325 MG ORAL TABLET 1573747 OXYCODONE-ACETAMI NOPHEN Inactive FOCALIN XR 10 MG ORAL CAPSULE EXTENDED RELEASE 24 HOUR 1 po q a. m. FOCALIN XR 10 MG ORAL CAPSULE EXTENDED RELEASE 24 HOUR DEXMETHYLPHENIDATE HCL Inactive CEFDINIR 300 MG ORAL CAPSULE 1 po bid CEFDINI R 300 MG ORAL CAPSULE 418900 CEFDINIR Inactive ANTIPYRINE-BENZOCAINE 5.4-1.4 % OTIC SOLUTION 1-2 drops in affec yohannes ear ANTIPYRINE-BENZOCAINE 5.4-1.4 % OTIC SOLUTION 829334 BENZOCAINE-ANTIPYRINE Inactive FLONASE 50 MCG/ACT NASAL SUSPENSION 1 spray each nostril am and hs FLONASE 50 MCG/ACT NASAL SUSPENSION 1673317 FLUTICASONE PROPIONATE I nactive PHENERGAN CREAM* 25mg applied to wrist q6hr PRN Nausea PHENERGAN CREAM* Inactive FIORICET 325-50-40 MG TAB 1 tablet by mouth four times daily as needed FIORICET 325-50-40 MG TAB ACETAMINOPHEN-C AFF-BUTALBITAL Inactive TRAZODONE HCL 100 MG ORAL TABLET 0.5 to 1 po qHS PRN Insomnia 20 30/07/08 TRAZODONE HCL 100 MG ORAL TABLET 934932 TRAZODONE HCL Inactive CONCERTA 18 MG ORAL [...] cough HYDROCODONE-ACETAMINOPHEN 5-325 MG ORAL TABLET 8 64157 HYDROCODONE-ACETAMINOPHEN Inactive PHENAZOPYRIDINE HCL 200 MG ORAL TABLET take 1 tab po TID for bladder pain PHENAZOPYRIDINE HCL 200 MG ORAL TABLET 2959862 PHENAZOPYRIDINE HCL Inactive HYDROCODONE-ACETAMINOPHEN 5-325 MG ORAL TABLET 1 po q 6hr PRN Pa in HYDROCODONE-ACETAMINOPHEN 5-325 MG ORAL TABLET 907287 HYDROCODONE-ACETAMINOPHEN Inactive CELEXA 20 MG ORAL TABLET 1 tablet by mouth daily 09/26 CELEXA 20 MG ORAL TABLET 293148 CITALOPRAM HYDROBROMIDE Inactive REGLAN 10 MG ORAL TABLET 1 po TID PRN Nausea 3 REGLAN 10 MG ORAL TABLET 937114 METOCLOPRAMIDE HCL Inactive LAMISIL 250 MG ORAL TABLET 1 po qd L AMISIL 250 MG ORAL TABLET 048830 TERBINAFINE HCL Inactive DICLOFENAC SODIUM 75 MG ORAL TABLET DELAYED RELEASE 1 tablet by mouth twice daily PRN Knee pain DICLOFENAC SODIUM 75 MG ORAL TABLET DELAYED RELEASE 810033 DICLOFENAC SODIUM Inactive METOCLOPRAMIDE HCL 10 MG ORAL TABLET take one PO tid PRN nausea METOCLOPRAMIDE HCL 10 MG ORAL TABLET 768852 METOCLOPRAM ZACH HCL Inactive TERBINAFINE HCL 250 MG ORAL TABLET take one table PO one time da moises TERBINAFINE HCL 250 MG ORAL TABLET 348125 TERBINAFINE H CL Inactive BUPROPION HCL ER [...] SICKNESS 25 M G ORAL TABLET CHEWABLE 805053 MECLIZINE HCL Inactive SUMATRIPTAN SUCCINATE 100 MG ORAL TABLET Take one PRN for migran e SUMATRIPTAN SUCCINATE 100 MG ORAL TABLET 691223 SUMATRIPTAN SUCCINATE Inactive COMPRO 25 MG RECTAL SUPPOSITORY insert or apply one garza ppository rectally as directed every 12 hours as needed for nausea COMPRO 25 MG RECTAL SUPPOSITORY 063696 PROCHLORPERAZINE Inactive ONDANSETRON 8 MG ORAL TABLET DISINTEGRATING place one tablet on tongue and allow to dissolve every 6 hours as needed for vomitting ONDANSETRON 8 MG ORAL TABLET DISINTEGRATING 829955 ONDANSETRON Inactive HYDROCODONE-ACETAMINOPHEN 5-325 MG ORAL TABLET 0.5 to 1 tab by mouth every 6 hours as needed HYDROCODONE-ACETAMIN OPHEN 5-325 MG ORAL TABLET 030731 HYDROCODONE-ACETAMINOPHEN Inactive BACTRIM DS 800-160 MG ORAL TABLET 1 tab by mouth twice daily 201 11/23/03 BACTRIM DS 800-160 MG ORAL TABLET 848691 TRIMETHOPRIM-SULFAMETHOXAZOLE Inactive DIFLUCAN 150 MG ORAL TABLET 1 tablet by mouth if neede d, hold until symptoms start DIFLUCAN 150 MG ORAL TABLET 378056 FLUCONAZ OLE Inactive IBUPROFEN 800 MG ORAL TABLET 1 tab every 8 hours with food 03/20 IBUPROFEN 800 MG ORAL TABLET 690412 IBUPROFEN Krupa ctive HYDROCODONE-ACETAMINOPHEN 5-325 MG ORAL TABLET 1 tab b y mouth every 6 hours as needed HYDROCODONE-ACETAMINOPHEN 5-325 MG ORAL TABLET 476499 HYDROCODONE-ACETAMINOPHEN Inactive BACTROBAN 2 % EXTERNAL CREAM Apply to affected area BID for up to 10 days BACTROBAN 2 % EXTERNAL CREAM 636788 MUPIROCIN CA LCIUM Inactive MAGNESIUM CITRATE 1.745 GM/30ML ORAL SOLUTION 150ml po BID P RN Constipation MAGNESIUM CITRATE 1.745 GM/30ML ORAL SOLUTION 10 14372 MAGNESIUM CITRATE Inactive DIFLUCAN 150 MG ORAL TABLET 1 tablet by mouth qod 2015 DIFLUCAN 150 MG ORAL TABLET 586420 FLUCONAZOLE Inactive BACTRIM DS 800-160 MG ORAL TABLET 1 tab by mouth twice daily 201 12/19/26 BACTRIM DS 800-160 MG ORAL TABLET 493546 TRIMETHOPRIM-SULFAMETHOXAZOLE Inactive CLARITIN 10 MG ORAL TABLET 1 tablet by mouth daily as needed for allergies CLARITIN 10 MG ORAL TABLET 362964 LORATADINE I nactive FLUTICASONE PROPIONATE 50 MCG/ACT NASAL SUSPENSION 2 s prays/nostril qd PRN Congestion/Allergies FLUTICASONE PROPION ATE 50 MCG/ACT NASAL SUSPENSION 3050892 FLUTICASONE PROPIONATE Inactive CIPRO 500 MG ORAL TABLET 1 tablet by mouth twice daily CIPRO 500 MG ORAL TABLET 138752 CIPROFLOXACIN HCL Inactive FLUCONAZOLE 150 MG ORAL TABLET take 1 tab po qday once FLUCONAZOLE 150 MG ORAL TABLET 727675 FLUCONAZOLE Inactive ZITHROMAX Z-KARTHIK 250 MG ORAL TABLET 2 today, then 1 daily for 4 d ays ZITHROMAX Z-KARTHIK 250 MG ORAL TABLET 539475 AZITHROMYCIN Inactive PREDNISONE 20 MG ORAL TABLET 2 tabs daily for 3 days, 1 tab daily for 3 days, 1/2 tab daily for 2 days PREDNISONE 20 MG ORAL T ABLET 360003 PREDNISONE Inactive AZITHROMYCIN 250 MG ORAL TABLET 2 po qd x 1 day, then 1 po q d x 4 days AZITHROMYCIN 250 MG ORAL TABLET 033516 AZITHROMY SPARKLE Inactive PREDNISONE 20 MG ORAL TABLET 2 tabs daily for 3 days, 1 tab daily for 3 days, 1/2 tab daily for 2 days PREDNISONE 20 MG ORAL TABLET 855057 PREDNISONE Inactive CEFDINIR 300 MG ORAL CAPSULE by mouth twice a day 2013 CEFDINIR 300 MG ORAL CAPSULE 168935 CEFDINIR Inactive TRIAMCINOLONE ACETONIDE 0.1 % EXTERNAL OINTMENT Apply to affected areas TID for up to 2 weeks TRIAMCINOLONE ACETON ZACH 0.1 % EXTERNAL OINTMENT 5231635 TRIAMCINOLONE ACETONIDE Inactive PREDNISONE 20 MG ORAL TABLET 2 tabs daily for 3 days, 1 tab daily for 3 days, 1/2 tab daily for 2 days PREDNISONE 20 MG ORAL T ABLET 104723 PREDNISONE Inactive BACTRIM DS 800-160 MG ORAL TABLET 1 po BID x 7 days 29/04/10 BACTRIM DS 800-160 MG ORAL TABLET 174762 SULFAMETHOXAZOLE-TRIMETHOP RIM Inactive CIPRO 500 MG ORAL TABLET 1 tablet by mouth twice daily CIPRO 500 MG ORAL TABLET 872334 CIPROFLOXACIN HCL Inactive AZITHROMYCIN 250 MG ORAL TABLET 2 po qd x 1 day, then 1 po q d x 4 days AZITHROMYCIN 250 MG ORAL TABLET 837737 AZITHROMY SPARKLE Inactive FLAGYL 500 MG ORAL TABLET 1 tablet by mouth bid 04/13 FLAGYL 500 MG ORAL TABLET 138165 METRONIDAZOLE Inactive AZITHROMYCIN 250 MG ORAL TABLET 2 po qd x 1 day, then 1 po q d x 4 days AZITHROMYCIN 250 MG ORAL TABLET 046758 AZITHROMY SPARKLE Inactive AMOXICILLIN 500 MG ORAL CAPSULE 2 po BID x 10 days 201 01/15/27 AMOXICILLIN 500 MG ORAL CAPSULE 932093 AMOXICILLIN Inactive Immunizations Vaccine Administration Date Value [...] PANEL - Chemistry cholesterol, serum 192 mg/dL 066-177 2512/02/20 HDL cholesterol, serum 31 mg/dL > OR [...] 11 .0-15.0 platelet count 218 THOUSAND/UL 10*3/mm3 990-713 4920/02/20 mean platelet volume 9.7 fL 7.5-12.5 Lab Report: Comp. Metabolic Panel, Eryth rocyte Sed Rate, UADIP W/MICRO, ... - Chemistry protein, total urine random Negative mg/dL Negative sodium, serum 139 mmol/L 861-023 8928/11/28 carbon dioxide, venous blood 26.0 mmol/L 21.0-32 [...] Negative Encounters Code Encounter Date Provider Facility CPT-05685 Level 3 Est. 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 Patient 13:05:44 CDT Paul Hamlin MD [facility] CPT-01633 Level 3 Est. Patient 11:29:55 CDT Checo Conklin MD [facility] CPT-66536 Level 4 Est. Patient 11:08:12 STOPPING BUILDER Checo Conklin MD [facility] CPT-61597 Level 4 Est. Patient 16:06:48 STOPPING BUILDER Checo Conklin MD [facility] CPT-02497 Level 3 Est. Patient 09:11:49 CDT Efren almendarez [facility] CPT-34272 Level 2 Est. Patient 19:53:27 CDT Tanner hill MD [facility] CPT-19879 Level 3 Est. Patient 09:15:34 CDT Efren almendarez [facility] CPT-84293 Level 3 Est. Patient 11:28:51 STOPPING BUILDER Efren almendarez [facility] CPT-82255 Level 4 Est. Patient 13:55:46 STOPPING BUILDER Checo Conklin MD [facility] CPT-57424 Level 4 Est. Patient 17:10:53 CDT Checo Conklin MD [facility] CPT-12317 Level 3 Est. Patient 15:56:22 CDT Checo Conklin MD [facility] CPT-95382 Level 3 Est. Patient 15:29:07 CDT Checo Conklin MD [facility] CPT-97066 Level 3 Est. Patient 14:38:41 CDT Checo Conklin MD [facility] CPT-41787 Level 3 Est. Patient 15:22:03 STOPPING BUILDER Thomas reynolds DO [facility] CPT-75457 Level 3 Est. Patient 13:34:17 STOPPING BUILDER Checo Conklin MD [facility] CPT-97083 Level 3 Est. Patient 12:29:32 CDT Dangelo arroyo MD [facility] CPT-72935 Level 3 Est. Patient 16:53:02 CDT Checo Conklin MD [facility] CPT-42274 Level 3 Est. Patient 16:37:13 CDT Checo Conklin MD [facility] CPT-07612 Level 3 Est. Patient 16:16:59 CDT Paul Hamlin MD [facility] CPT-36209 Level 3 Est. Patient 14:20:13 CDT Dangelo arroyo MD [facility] CPT-58788 Level 4 Est. Patient 11:29:33 CDT Checo Conklin MD [facility] CPT-60535 Level 3 Est. Patient 17:08:31 CDT Checo Conklin MD [facility] CPT-03686 Level 3 Est. Patient 16:50:42 STOPPING BUILDER Checo Conklin MD [facility] CPT-81184 Level 4 Est. Patient 09:26:08 STOPPING BUILDER Checo Conklin MD [facility] CPT-78283 Level 3 Est. Patient 11:37:10 CDT Checo Conklin MD [facility] CPT-34469 Level 4 Est. Patient 14:07:38 CDT Checo Conklin MD [facility] CPT-76670 Level 3 Est. Patient 09:54:41 CDT Checo Conklin MD [facility] CPT-73092 Level 3 Est. Patient 11:10:54 CDT Paul Hamlin MD [facility] CPT-04724 Level 3 Est. Patient 14:16:56 STOPPING BUILDER Checo Conklin MD [facility] CPT-14219 Level 3 Est. Patient 11:04:11 STOPPING BUILDER Checo Conklin MD [facility] CPT-23068 Level 3 Est. Patient 17:09:26 CDT Dangelo arroyo MD [facility] CPT-00063 Level 3 Est. Patient 16:54:37 CDT Checo Conklin MD [facility] Procedures Code Procedure Name Date Entry Date Standard Desc ription CPT-85202 Abd compl w upright - XRAY USE ONLY 1 1:36:54 STOPPING BUILDER CPT-86158 UA w micro - LAB USE ONLY 17:06:46 CDT 2015 CPT-87046 BHCG Qual - LAB USE ONLY 17:06:46 CDT 05/06 CPT-83213 CMP - LAB USE ONLY 17:06:46 CDT CPT-87011 CBC with Diff - LAB USE ONLY 17:06:45 CDT 2 CPT-60846 Venipuncture Draw Fee 17:06:45 CDT CPT-LR Lesion Removal 19:53:27 CDT CPT-OV Office Visit 11:31:28 CDT CPT-96431 Tubersol 09:39:29 CDT CPT-J2550 Phenergan 25 mg (Promethazine) 13:59:02 STOPPING BUILDER CPT-J1885 Toradol 60 mg (Ketorolac) 13:59:02 STOPPING BUILDER 2012
--- OUTSIDE RECORDS SUMMARY | 2019-09-29 01:36 | XMS REPORT | Clinical Summary ---
Author Author Admin, Bethany Gonzales Organization [employer] Address Unknown Phone Unavailable Allergies, Adverse Reactions, [...] otitis media Onychomycosis, toenails 110.1 Resolved Joe Coknlin MD Dermatophytosis of nail Hypoglycemia, unspecified 251.2 [...] Acute sinusitis, unspecified Insect bite 919.4 Resolved Cehco Conklin MD Insect bite, nonvenomous, of other, [...] vulvovaginitis, unspecified Pharyngitis 462 Active Jillina Frazell TAXATION ACCOUNTANT Acute pharyngitis Cough 786.2 Active Jillina Frasandra TAXATION ACCOUNTANT Cough Pedal edema 782.3 Active Jillina Frazelkenny TAXATION ACCOUNTANT 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 Tanner Carrillo MD Neoplasm of uncertain behavior of skin FH BREAST CANCER ICD-V16.3 Inactive Checo Joshua [...] tab by mouth twice daily 2 TRIMETHOPRIM-SULFAMETHOXAZOLE 58673678848 No Longer Active Tanner Carrillo MD Active DIFLUCAN 150 MG TAB 1 tablet by mouth qod FLUCO NAZOLE 60664336675 No Longer Active Efren Medel APRN Active CLARITIN 10 MG TAB 1 tablet by mouth daily as needed for allergies LORATADINE 61755483360 Active Jillina Frajoel TAXATION ACCOUNTANT Active AZITHROMYCIN 250 MG TABS 2 po qd x 1 day, then 1 po qd x 4 days AZITHROMYCIN 32241279471 No Longer Active Jillina Lizy RIDDLEN Active FLAGYL 500 MG TAB 1 tablet by mouth bid METRONI DAZOLE 98705293358 No Longer Active Checo Conklin MD Active FOCALIN XR 10 MG ORAL [id number] 1 po q a.m. DEX METHYLPHENIDATE HCL 43849590069 Active Checo Cnoklin MD Active MAGNESIUM CITRATE 1.745 GM/30ML ORAL SOLN 150ml po BID PRN C onstipation MAGNESIUM CITRATE 65937105674 No Longer Active Checo Conklin MD Active BACTROBAN 2 % CREAM Apply to affected area BID for up to 10 days MUPIROCIN CALCIUM 58702586294 No Longer Active Checo Conklin MD Active HYDROCODONE-ACETAMINOPHEN 5-325 MG TABS 1 tab by mouth every 6 hours as needed HYDROCODONE-ACETAMINOPHEN 03308545711 No Longer Activ e Checo Conklin MD Active IBUPROFEN 800 MG TABS 1 tab every 8 hours with food 20 31/03/21 IBUPROFEN 30815309722 No Longer Active Checo Conklin MD Activ e DIFLUCAN 150 MG TAB 1 tablet by mouth if needed, hold until symptoms start FLUCONAZOLE 27664404839 No Longer Active Checo Ortiz MD Active BACTRIM DS 800-160 MG TAB 1 tab by mouth twice daily 2 TRIMETHOPRIM-SULFAMETHOXAZOLE 71341258095 No Longer Active Corry leong LPN Active MIRALAX PACK 1 po qd PRN Constipation POLYETHYL JOEL GLYCOL 3350 84454657742 Active Checo Conklin MD Active HYDROCODONE-ACETAMINOPHEN 5-325 MG TABS 0.5 to 1 tab b y mouth every 6 hours as needed HYDROCODONE-ACETAMINOPHEN 74724536004 No Longer Active Checo Conklin MD Active ONDANSETRON [address] one tablet on tongue and allow to dissolve every 6 hours as needed for vomitting ONDANSETRO N 16769751632 No Longer Active Checo Conklin MD Active COMPRO 25 MG RECTAL SUPP insert or apply one supposit ory rectally as directed every 12 hours as needed for nausea PROCHLORPERA ZINE 94101743843 No Longer Active Checo Conklin MD Active SUMATRIPTAN SUCCINATE 100 MG ORAL TABS Take one PRN for migrane SUMATRIPTAN SUCCINATE 59844222011 No Longer Active Checo Conklin MD Active TRAVEL SICKNESS 25 MG ORAL CHEW chew and swallow one t ablet every 6 hours as needed MECLIZINE HCL 51147460895 No Longer Active Joe Conklin MD Active BUPROPION HCL ER (SR) 100 MG ORAL [id number] take one t ablet by mouth one time daily for one week then take 1 two times daily BUPROPION HCL 07483000140 No Longer Active Checo Conklin MD Activ e TERBINAFINE HCL 250 MG ORAL TABS take one table PO one time abran y TERBINAFINE HCL 52540531462 No Longer Active Checo Conklin MD Active METOCLOPRAMIDE HCL 10 MG ORAL TABS take one PO tid PRN nausea 20 29/12/14 METOCLOPRAMIDE HCL 41462423706 No Longer Active Checo Conklin MD Active DICLOFENAC SODIUM 75 MG TBEC 1 tablet by mouth twice daily P RN Knee pain DICLOFENAC SODIUM 44369850214 No Longer Active Checo Conklin MD Active LAMISIL 250 MG TAB 1 po qd TERBINAFINE HCL 548 16538482 No Longer Active Checo Conklin MD Active REGLAN 10 MG TAB 1 po TID PRN Nausea METOCLOPRA MIDE HCL 91672429965 No Longer Active Checo Conklin MD Active CELEXA 20 MG TABS 1 tablet by mouth daily CITALOPRAM HYDROBROMIDE 64699902633 No Longer Active Checo Conklin MD Activ e AZITHROMYCIN 250 MG TABS 2 po qd x 1 day, then 1 po qd x 4 days AZITHROMYCIN 52957276613 No Longer Active Checo Conklin MD Active HYDROCODONE-ACETAMINOPHEN 5-325 MG TABS 1 po q 6hr PRN Pain 2013 HYDROCODONE-ACETAMINOPHEN 76065951764 No Longer Active Lenora Conklin MD Active PHENAZOPYRIDINE HCL 200 MG TABS take 1 tab po TID for bladder pa in PHENAZOPYRIDINE HCL 33703755064 No Longer Active Checo Joshua Active CIPRO 500 MG TAB 1 tablet by mouth twice daily CIPROFLOXACIN HCL 28411129726 No Longer Active Dangelo Rangel MD Active HYDROCODONE-ACETAMINOPHEN 5-325 MG TABS 1/2 to 1 po q 4 hour s prn cough HYDROCODONE-ACETAMINOPHEN 06292053568 No Longer Activ e Dangelo Rangel MD Active BACTRIM DS 800-160 MG TABS 1 po BID x 7 days 0 SULFAMETHOXAZOLE-TRIMETHOPRIM 67026500998 No Longer Active Checo Conklin MD Active PREDNISONE 20 MG TAB 2 tabs daily for 3 days, 1 t ab daily for 3 days, 1/2 tab daily for 2 days PREDNISONE 84915728185 No Longer Active Checo Conklin MD Active TRIAMCINOLONE ACETONIDE 0.1 % OINT Apply to affected a reas TID for up to 2 weeks TRIAMCINOLONE ACETONIDE 49695947156 No Longer A ctive Checo Conklin MD Active CEFDINIR 300 MG CAPS by mouth twice a day CEFDI JAZZY 59042734550 No Longer Active Dangelo Rangel MD Active BUPROPION HCL (SMOKING DETER) 150 MG [id number] 1 a day for 1 week then 1 twice a day BUPROPION HCL (SMOKING DETER) 12053691515 No Lo nger Active Checo Conklin MD Active SIMVASTATIN 20 MG TABS 1 po qd SIMVASTATIN 8633909661 5 Active Checo Conklin MD Active CHANTIX STARTING MONTH KARTHIK 0.5 MG X 11 & 1 MG X 42 TAB S 0.5mg daily for 3 days, then 0.5mg BID for 4 days, then 1mg BID VARENICLINE TARTRATE 55722370894 No Longer Active Checo Conklin MD Activ e XANAX 0.5 MG TABS 1 po BID PRN anxiety ALPRAZOLAM 72002417451 Active Checo Conklin MD Active CONCERTA 18 MG CR-TABS 1 po q a.m. METHYLPHENID ATE HCL 47361440491 No Longer Active Checo Conklin MD Active AMBIEN 5 MG TAB 1 po qHS PRN Insomnia ZOLPIDEM TARTRATE 09510492632 Active Checo Conklin MD Active TRAZODONE HCL 100 MG TAB 0.5 to 1 po qHS PRN Insomnia TRAZODONE HCL 98777219393 No Longer Active Checo Conklin MD Acti ve FIORICET 325-50-40 MG TAB 1 tablet by mouth four times daily as needed [id number] 05188911529 No Longer Active Checo Conklin MD Active PHENERGAN CREAM* 25mg applied to wrist q6hr PRN Nausea PHENERGAN CREAM* No Longer Active Checo Conklin MD A ctive FLONASE 50 MCG/ACT SUSP 1 spray each nostril am and hs FLUTICASONE PROPIONATE 19464290491 No Longer Active Checo Conklin MD Activ e ANTIPYRINE-BENZOCAINE 5.4-1.4 % SOLN 1-2 drops in affected ear BENZOCAINE-ANTIPYRINE 42838491178 No Longer Active Checo Conklin MD Active CEFDINIR 300 MG CAPS 1 po bid CEFDINIR 06835404 120 No Longer Active Checo Conklin MD Active PREDNISONE 20 MG TAB 2 tabs daily for 3 days, 1 t ab daily for 3 days, 1/2 tab daily for 2 days PREDNISONE 31191337132 No Longer Active Aracelis Conklin MD Active AZITHROMYCIN 250 MG TABS 2 po qd x 1 day, then 1 po qd x 4 days AZITHROMYCIN 52658013471 No Longer Active Checo Conklin MD Active PREDNISONE 20 MG TAB 2 tabs daily for 3 days, 1 t ab daily for 3 days, 1/2 tab daily for 2 days PREDNISONE 43075843047 No Longer Active Checo Conklin MD Active ZITHROMAX Z-KARTHIK 250 MG TABS 2 today, then 1 daily for 4 days 201 09/18/28 AZITHROMYCIN 23290298938 No Longer Active Paul Hamlin MD Active FOCALIN XR 10 MG [id number] 1 po q a.m. D EXMETHYLPHENIDATE HCL 71570661011 No Longer Active Paul Hamlin MD Activ e PERCOCET 10-325 MG TABS 1 tablet every 6 hours as needed for pain OXYCODONE-ACETAMINOPHEN 89088693162 No Longer Active Paul Hamlin MD Active LORTAB 5 5-500 MG TABS 1/2 to 1 tablet by mouth flaquito ry 4 hours as needed for pain HYDROCODONE-ACETAMINOPHEN 86077327425 No Longer Active Checo Conklin MD Active FOCALIN XR 15 MG [id number] 1 po q a.m. D EXMETHYLPHENIDATE HCL 45176316151 No Longer Active Checo Conklin MD Activ e ZOFRAN ODT 4 MG TBDP 1 po q6hr PRN Nausea ONDAN SETRON 49475223938 No Longer Active Checo Conklin MD Active PERCOCET 5-325 MG TABS 1 tablet by mouth every 6 hours as needed OXYCODONE-ACETAMINOPHEN 41318268456 No Longer Active Checo Conklin MD Active PYRIDIUM 200 MG TABS take 1 tab po TID prn urinary pain. 0 PHENAZOPYRIDINE HCL 91844908961 No Longer Active Checo Conklin MD Active FLUCONAZOLE 150 MG TABS take 1 tab po qday once 0 04/06 FLUCONAZOLE 89511943036 No Longer Active Dangelo Rangel MD Acti ve CIPRO 500 MG TAB 1 tablet by mouth twice daily CIPROFLOXACIN HCL 74022433785 No Longer Active Dangelo Rangel MD Active PYRIDIUM 200 MG TABS take 1 tab po TID prn urinary pain. 0 PYRIDIUM 200 MG TABS 0615107 PHENAZOPYRIDINE HCL Inactive PERCOCET 5-325 MG TABS 1 tablet by mouth every 6 hours as needed PERCOCET 5-325 MG TABS 7017708 OXYCODONE-ACETAMINOPHEN I nactive ZOFRAN ODT 4 MG TBDP 1 po q6hr PRN Nausea ZOFRAN ODT 4 MG TBDP 082167 ONDANSETRON Inactive FOCALIN XR 15 MG [id number] 1 po q a.m. F OCALIN XR 15 MG [id number] DEXMETHYLPHENIDATE HCL Inactive LORTAB 5 5-500 MG TABS 1/2 to 1 tablet by mouth flaquito ry 4 hours as needed for pain LORTAB 5 5-500 MG TABS HYDROCODONE-A CETAMINOPHEN Inactive PERCOCET 10-325 MG TABS 1 tablet every 6 hours as needed for pain PERCOCET 10-325 MG TABS 1869069 OXYCODONE-ACETAMINOPHEN Inactive FOCALIN XR 10 MG [id number] 1 po q a.m. F OCALIN XR 10 MG [id number] DEXMETHYLPHENIDATE HCL Inactive CEFDINIR 300 MG CAPS 1 po bid CEFDINIR 300 MG CAPS 20 0346 CEFDINIR Inactive ANTIPYRINE-BENZOCAINE 5.4-1.4 % SOLN 1-2 drops in affected ear ANTIPYRINE-BENZOCAINE 5.4-1.4 % SOLN 359408 BENZOCAINE-ANTIPYRINE I nactive FLONASE 50 MCG/ACT SUSP 1 spray each nostril am and hs FLONASE 50 MCG/ACT SUSP 455818 FLUTICASONE PROPIONATE Inactive PHENERGAN CREAM* 25mg applied to wrist q6hr PRN Nausea PHENERGAN CREAM* Inactive FIORICET 325-50-40 MG TAB 1 tablet by mouth four times daily as needed FIORICET 325-50-40 MG TAB ACETAMINOPHEN-C AFF-BUTALBITAL Inactive TRAZODONE HCL 100 MG TAB 0.5 to 1 po qHS PRN Insomnia TRAZODONE HCL 100 MG TAB 288638 TRAZODONE HCL Inactive CONCERTA 18 MG CR-TABS [...] s prn cough HYDROCODONE-ACETAMINOPHEN 5-325 MG TABS 178735 HYDROCODONE-ACETAMINOPHEN Inactive PHENAZOPYRIDINE HCL 200 MG TABS take 1 tab po TID for bladder pa in PHENAZOPYRIDINE HCL 200 MG TABS 4181113 PHENAZOPYRIDINE HCL Inactive HYDROCODONE-ACETAMINOPHEN 5-325 MG TABS 1 po q 6hr PRN Pain 2013 HYDROCODONE-ACETAMINOPHEN 5-325 MG TABS 907887 HYDROCODONE-ACETAMINOPHEN Inactive CELEXA 20 MG TABS 1 tablet by mouth daily CELEXA 20 MG TABS 715370 CITALOPRAM HYDROBROMIDE Inactive REGLAN 10 MG TAB 1 po TID PRN Nausea REGLAN 10 MG TAB 697877 METOCLOPRAMIDE HCL Inactive LAMISIL 250 MG TAB 1 po qd LAMISIL 250 MG TAB 767592 TERBINAFINE HCL Inactive DICLOFENAC SODIUM 75 MG TBEC 1 tablet by mouth twice daily P RN Knee pain DICLOFENAC SODIUM 75 MG TBEC 439363 DICLOFENAC S ODIUM Inactive METOCLOPRAMIDE HCL 10 MG ORAL TABS take one PO tid PRN nausea 20 29/12/14 METOCLOPRAMIDE HCL 10 MG ORAL TABS 961819 METOCLOPRAMID E HCL Inactive TERBINAFINE HCL 250 MG ORAL TABS take one table PO one time abran y TERBINAFINE HCL 250 MG ORAL TABS 544973 TERBINAFINE HCL Inactive BUPROPION HCL ER (SR) 100 MG ORAL [id number] take one t ablet by mouth one time daily for one week then take 1 two times daily BUPROPION HCL ER (SR) 100 MG ORAL [id number] BUPROPION HCL Inacti ve TRAVEL SICKNESS 25 MG ORAL CHEW chew and swallow one t ablet every 6 hours as needed TRAVEL SICKNESS 25 MG ORAL CHEW 827868 MECLIZINE HCL Inactive SUMATRIPTAN SUCCINATE 100 MG ORAL TABS Take one PRN for migrane SUMATRIPTAN SUCCINATE 100 MG ORAL TABS 516269 SUMATRIPT AN SUCCINATE Inactive COMPRO 25 MG RECTAL SUPP insert or apply one supposit ory rectally as directed every 12 hours as needed for nausea COMP RO 25 MG RECTAL SUPP 189440 PROCHLORPERAZINE Inactive ONDANSETRON [address] one tablet on tongue and allow to dissolve every 6 hours as needed for vomitting ON DANSETRON 8 MG ORAL TBDP 945247 ONDANSETRON Inactive HYDROCODONE-ACETAMINOPHEN 5-325 MG TABS 0.5 to 1 tab b y mouth every 6 hours as needed HYDROCODONE-ACETAMINOPHEN 5-325 MG TABS 8 93448 HYDROCODONE-ACETAMINOPHEN Inactive BACTRIM DS 800-160 MG TAB 1 tab by mouth twice daily 2 BACTRIM DS 800-160 MG TAB 115573 TRIMETHOPRIM-SULFAMETHOXAZOLE Inac tive DIFLUCAN 150 MG TAB 1 tablet by mouth if needed, hold until symptoms start DIFLUCAN 150 MG TAB 741375 FLUCONAZOLE Inactive IBUPROFEN 800 MG TABS 1 tab every 8 hours with food 31/03/21 IBUPROFEN 800 MG TABS 996010 IBUPROFEN Inactive HYDROCODONE-ACETAMINOPHEN 5-325 MG TABS 1 tab by mouth every 6 hours as needed HYDROCODONE-ACETAMINOPHEN 5-325 MG TABS 683578 HYDROCODONE-ACETAMINOPHEN Inactive BACTROBAN 2 % CREAM Apply to affected area BID for up to 10 days BACTROBAN 2 % CREAM 277026 MUPIROCIN CALCIUM Inactive MAGNESIUM CITRATE 1.745 GM/30ML ORAL SOLN 150ml po BID PRN C onstipation MAGNESIUM CITRATE 1.745 GM/30ML ORAL SOLN 067120 0 MAGNESIUM CITRATE Inactive DIFLUCAN 150 MG TAB 1 tablet by mouth qod DIFLUCAN 150 MG TAB 018983 FLUCONAZOLE Inactive BACTRIM DS 800-160 MG TAB 1 tab by mouth twice daily 2 BACTRIM DS 800-160 MG TAB 850908 TRIMETHOPRIM-SULFAMETHOXAZOLE Inac tive CIPRO 500 MG TAB 1 tablet by mouth twice daily CIPRO 500 MG TAB 303847 CIPROFLOXACIN HCL Inactive FLUCONAZOLE 150 MG TABS take 1 tab po qday once 04/06 FLUCONAZOLE 150 MG TABS 886822 FLUCONAZOLE Inactive ZITHROMAX Z-KARTHIK 250 MG TABS 2 today, then 1 daily for 4 days 201 09/18/28 ZITHROMAX Z-KARTHIK 250 MG TABS 7712575 AZITHROMYCIN Inac tive PREDNISONE 20 MG TAB 2 tabs daily for 3 days, 1 t ab daily for 3 days, 1/2 tab daily for 2 days PREDNISONE 20 MG TAB 155551 PREDNISON E Inactive AZITHROMYCIN 250 MG TABS 2 po qd x 1 day, then 1 po qd x 4 days AZITHROMYCIN 250 MG TABS 1285998 AZITHROMYCIN Inactiv e PREDNISONE 20 MG TAB 2 tabs daily for 3 days, 1 t ab daily for 3 days, 1/2 tab daily for 2 days PREDNISONE 20 MG TAB 556944 PREDNISON E Inactive CEFDINIR 300 MG CAPS by mouth twice a day CEFDINIR 300 MG CAPS 076623 CEFDINIR Inactive TRIAMCINOLONE ACETONIDE 0.1 % OINT Apply to affected a reas TID for up to 2 weeks TRIAMCINOLONE ACETONIDE 0.1 % OINT 057403 6 TRIAMCINOLONE ACETONIDE Inactive PREDNISONE 20 MG TAB 2 tabs daily for 3 days, 1 t ab daily for 3 days, 1/2 tab daily for 2 days PREDNISONE 20 MG TAB 479389 PREDNISON E Inactive BACTRIM DS 800-160 MG TABS 1 po BID x 7 days 0 BACTRIM DS 800-160 MG TABS 102365 SULFAMETHOXAZOLE-TRIMETHOPRIM Inactive CIPRO 500 MG TAB 1 tablet by mouth twice daily CIPRO 500 MG TAB 965371 CIPROFLOXACIN HCL Inactive AZITHROMYCIN 250 MG TABS 2 po qd x 1 day, then 1 po qd x 4 days AZITHROMYCIN 250 MG TABS 7280332 AZITHROMYCIN Inactiv e FLAGYL 500 MG TAB 1 tablet by mouth bid FLAGYL 500 MG TAB 187498 METRONIDAZOLE Inactive AZITHROMYCIN 250 MG TABS 2 po qd x 1 day, then 1 po qd x 4 days AZITHROMYCIN 250 MG TABS 7395585 AZITHROMYCIN Inactiv e Immunizations Vaccine Administration Date Value Standard Michael cription TB-PPD (tuberculin purified protein derivative), intra dermal administration Tubersol Vital Signs Date Name Value Unit Range Description blood pressure, diastolic - 8462-4 76 mm[Hg] [...] - 3141-9 131.5 [lb_av] Weigh t Measured Diagnostic Results Date Name Value Unit Range Description Lab Report: CBC - Hematology mean corpuscular hemoglobin, RBC 32.7 pg 27. 0-31.2 mean corpuscular hemoglobin concentration, RBC 33.6 G/DL % 31.8-35.4 red blood cell distribution width 13.3 % 11 .6-14.8 platelet count 210 10^3/MM^3 10*3/mm3 431-506 3135/01/26 mean corpuscular volume, RBC 98 fL 80-97 hematocrit, blood 39.2 % 36.0-46.0 hemoglobin, blood 13.2 g/dL 12.0-16.0 erythrocyte (RBC) count 4.02 10^6/MM^3 10*6/mm3 4.04-5.4 8 leukocyte count, blood 8.2 10^3/MM^3 10*3/mm3 4.6-10.2 Lab Report: CBC W/DIFF - Hematology neutrophils as percent of blood leukocytes 64.6 [...] 11 .6-14.8 platelet count 248 10^3/MM^3 10*3/mm3 535-512 0685/05/27 leukocyte count, blood 8.0 10^3/MM^3 10*3/mm3 4.6-10.2 Lab Report: Comp. Metabolic Panel, Lipid Panel, Thyroid Stimulating Horm ... - Chemistry protein, total urine random Negative mg/dL Negative RBC, urine, dipstick Negative Negative sodium, serum 141 mmol/L 311-255 5689/01/26 carbon dioxide, venous blood 30.0 mmol/L 21.0-32 .0 potassium, serum 4.0 mmol/L 3.5-5.2 chloride, serum 105 mmol/L 98-107 blood glucose 85 mg/dL 65-110 urea nitrogen, blood 9 mg/dL 7-18 creatinine, serum 0.66 mg/dL 0.55-1.30 alanine aminotransferase (SGPT), serum 31 U/L 12-78 aspartate aminotransferase (SGOT), serum 21 U/L 15-37 calcium, serum 8.2 mg/dL 8.5-10.1 bilirubin, serum, total 1.10 mg/dL 0.00-1.00 cholesterol, serum 178 mg/dL 343-714 0791/01/26 triglyceride, serum, fasting 149 mg/dL 30-200 HDL [...] ... - Chemistry sodium, serum 137 mmol/L 432-373 7815/05/27 carbon dioxide, venous blood 29.1 mmol/L 21.0-32 [...] 5.0-8.5 Encounters Code Encounter Date Provider Facility CPT-98628 Level 2 Est. Patient 19:53:27 CDT Tanner hill MD [facility] CPT-13928 Level 3 Est. Patient 09:15:34 CDT Efren almendarez [facility] CPT-60304 Level 3 Est. Patient 11:28:51 [employer] Efren almendarez [facility] CPT-10523 Level 4 Est. Patient 13:55:46 [employer] Checo Conklin MD [facility] CPT-76207 Level 4 Est. Patient 17:10:53 CDT Checo Conklin MD [facility] CPT-72445 Level 3 Est. Patient 15:56:22 CDT Checo Conklin MD [facility] CPT-15593 Level 3 Est. Patient 15:29:07 CDT Checo Conklin MD [facility] CPT-33647 Level 3 Est. Patient 14:38:41 CDT Checo Conklin MD [facility] CPT-14223 Level 3 Est. Patient 15:22:03 [employer] Thomas reynolds DO [facility] CPT-68365 Level 3 Est. Patient 13:34:17 [employer] Checo Conklin MD [facility] CPT-97468 Level 3 Est. Patient 12:29:32 CDT Dangelo arroyo MD [facility] CPT-55202 Level 3 Est. Patient 16:53:02 CDT Checo Conklin MD [facility] CPT-22665 Level 3 Est. Patient 16:37:13 CDT Checo Conklin MD [facility] CPT-90118 Level 3 Est. Patient 16:16:59 CDT Paul Hamlin MD [facility] CPT-92101 Level 3 Est. Patient 14:20:13 CDT Dangelo arroyo MD [facility] CPT-80017 Level 4 Est. Patient 11:29:33 CDT Checo Conklin MD [facility] CPT-89123 Level 3 Est. Patient 17:08:31 CDT Checo Conklin MD [facility] CPT-77501 Level 3 Est. Patient 16:50:42 [employer] Checo Conklin MD [facility] CPT-25042 Level 4 Est. Patient 09:26:08 [employer] Checo Conklin MD [facility] CPT-99595 Level 3 Est. Patient 11:37:10 CDT Checo Conklin MD [facility] CPT-75679 Level 4 Est. Patient 14:07:38 CDT Checo Conklin MD [facility] CPT-27083 Level 3 Est. Patient 09:54:41 CDT Checo Conklin MD [facility] CPT-15673 Level 3 Est. Patient 11:10:54 CDT Paul Hamlin MD [facility] CPT-42171 Level 3 Est. Patient 14:16:56 [employer] Checo Conklin MD [facility] CPT-13541 Level 3 Est. Patient 11:04:11 [employer] Checo Conklin MD [facility] CPT-97779 Level 3 Est. Patient 17:09:26 CDT Dangelo arroyo MD [facility] CPT-40542 Level 3 Est. Patient 16:54:37 CDT Checo Conklin MD [facility] Procedures Code Procedure Name Date Entry Date Standard Desc ription CPT-LR Lesion Removal 19:53:27 CDT CPT-OV Office Visit 11:31:28 CDT CPT-26089 Tubersol 09:39:29 CDT CPT-J2550 Phenergan 25 mg (Promethazine) 13:59:02 [employer] CPT-J1885 Toradol 60 mg (Ketorolac) 13:59:02 [employer] 2012
--- OUTSIDE RECORDS SUMMARY | 2019-09-29 01:37 | XMS REPORT | Clinical Summary ---
Author Author Admin, Bethany Ayala [facility] Address Unknown Phone Unavailable Allergies, Adverse [...] 788.41 Resolved Checo Conklin MD Urinary frequency BREAST CANCER ICD-V16.3 Inactive Checo Joshua FH [...] Inactive Lenora Conklin MD Pharyngitis ICD-462 Inactive Cehco Conklin MD Cough ICD-786.2 Inactive Checo Conklin [...] sprays/ nostril qd PRN Congestion/Allergies FLUTICASONE PROPIONATE [id number] Ac tive Checo Conklin MD Active MIRALAX ORAL POWD 8.5 to 17g po qd PRN Constipation POLYETHYLENE GLYCOL 3350 33910014826 Active Checo Conklin MD Active CLARITIN 10 MG TAB 1 tablet by mouth daily as needed for allergi es LORATADINE 57428788352 No Longer Active Checo Conklin MD Active BACTRIM DS 800-160 MG TAB 1 tab by mouth twice daily 2 TRIMETHOPRIM-SULFAMETHOXAZOLE 07154810270 No Longer Active Tanner Carrillo MD Active DIFLUCAN 150 MG TAB 1 tablet by mouth qod FLUCO NAZOLE 54735895816 No Longer Active Jillina Frazell [facility] Active AZITHROMYCIN 250 MG TABS 2 po qd x 1 day, then 1 po qd x 4 days AZITHROMYCIN 66695570933 No Longer Active Jillina Frazell [facility] Active FLAGYL 500 MG TAB 1 tablet by mouth bid METRONI DAZOLE 07883857445 No Longer Active Checo Conklin MD Active FOCALIN XR 10 MG ORAL [id number] 1 po q a.m. DEX METHYLPHENIDATE HCL 11826500856 Active Checo Conklin MD Active MAGNESIUM CITRATE 1.745 GM/30ML ORAL SOLN 150ml po BID PRN C onstipation MAGNESIUM CITRATE 50517828677 No Longer Active Checo Conklin MD Active BACTROBAN 2 % CREAM Apply to affected area BID for up to 10 days MUPIROCIN CALCIUM 52016314752 No Longer Active Checo Conklin MD Active HYDROCODONE-ACETAMINOPHEN 5-325 MG TABS 1 tab by mouth every 6 hours as needed HYDROCODONE-ACETAMINOPHEN 95540759671 No Longer Activ e Checo Conklin MD Active IBUPROFEN 800 MG TABS 1 tab every 8 hours with food 31/03/21 IBUPROFEN 15089894354 No Longer Active Checo Conklin MD Activ e DIFLUCAN 150 MG TAB 1 tablet by mouth if needed, hold until symptoms start FLUCONAZOLE 79163042490 No Longer Active Checo Ortiz MD Active BACTRIM DS 800-160 MG TAB 1 tab by mouth twice daily 2 TRIMETHOPRIM-SULFAMETHOXAZOLE 80638904474 No Longer Active Corry leong LPN Active HYDROCODONE-ACETAMINOPHEN 5-325 MG TABS 0.5 to 1 tab b y mouth every 6 hours as needed HYDROCODONE-ACETAMINOPHEN 38830326905 No Longer Active Checo Conklin MD Active ONDANSETRON [address] one tablet on tongue and allow to dissolve every 6 hours as needed for vomitting ONDANSETRO N 67978681770 No Longer Active Checo Conklin MD Active COMPRO 25 MG RECTAL SUPP insert or apply one supposit ory rectally as directed every 12 hours as needed for nausea PROCHLORPERA ZINE 91296918707 No Longer Active Checo Conklin MD Active SUMATRIPTAN SUCCINATE 100 MG ORAL TABS Take one PRN for migrane SUMATRIPTAN SUCCINATE 49336641745 No Longer Active Checo Conklin MD Active TRAVEL SICKNESS 25 MG ORAL CHEW chew and swallow one t ablet every 6 hours as needed MECLIZINE HCL 51398727673 No Longer Active Joe Conklin MD Active BUPROPION HCL ER (SR) 100 MG ORAL [id number] take one t ablet by mouth one time daily for one week then take 1 two times daily BUPROPION HCL 54591544560 No Longer Active Checo Conklin MD Activ e TERBINAFINE HCL 250 MG ORAL TABS take one table PO one time abran y TERBINAFINE HCL 49688555018 No Longer Active Checo Conklin MD Active METOCLOPRAMIDE HCL 10 MG ORAL TABS take one PO tid PRN nausea 20 29/12/14 METOCLOPRAMIDE HCL 83124811327 No Longer Active Checo Conklin MD Active DICLOFENAC SODIUM 75 MG TBEC 1 tablet by mouth twice daily P RN Knee pain DICLOFENAC SODIUM 29411938914 No Longer Active Checo Conklin MD Active LAMISIL 250 MG TAB 1 po qd TERBINAFINE HCL 548 46578646 No Longer Active Checo Conklin MD Active REGLAN 10 MG TAB 1 po TID PRN Nausea METOCLOPRA MIDE HCL 90396120852 No Longer Active Checo Conklin MD Active CELEXA 20 MG TABS 1 tablet by mouth daily CITALOPRAM HYDROBROMIDE 28362893992 No Longer Active Checo Conklin MD Activ e AZITHROMYCIN 250 MG TABS 2 po qd x 1 day, then 1 po qd x 4 days AZITHROMYCIN 31793095825 No Longer Active Checo Conklin MD Active HYDROCODONE-ACETAMINOPHEN 5-325 MG TABS 1 po q 6hr PRN Pain 2013 HYDROCODONE-ACETAMINOPHEN 60189286576 No Longer Active Lenora Conklin MD Active PHENAZOPYRIDINE HCL 200 MG TABS take 1 tab po TID for bladder pa in PHENAZOPYRIDINE HCL 03875619127 No Longer Active Checo Joshua Active CIPRO 500 MG TAB 1 tablet by mouth twice daily CIPROFLOXACIN HCL 68719044322 No Longer Active Dangelo Rangel MD Active HYDROCODONE-ACETAMINOPHEN 5-325 MG TABS 1/2 to 1 po q 4 hour s prn cough HYDROCODONE-ACETAMINOPHEN 27532129546 No Longer Activ e Dangelo Ragnel MD Active BACTRIM DS 800-160 MG TABS 1 po BID x 7 days 0 SULFAMETHOXAZOLE-TRIMETHOPRIM 91973231198 No Longer Active Checo Conklin MD Active PREDNISONE 20 MG TAB 2 tabs daily for 3 days, 1 t ab daily for 3 days, 1/2 tab daily for 2 days PREDNISONE 31529927648 No Longer Active Checo Conklin MD Active TRIAMCINOLONE ACETONIDE 0.1 % OINT Apply to affected a reas TID for up to 2 weeks TRIAMCINOLONE ACETONIDE 45805182840 No Longer A ctive Checo Conklin MD Active CEFDINIR 300 MG CAPS by mouth twice a day CEFDI JAZZY 10761632296 No Longer Active Dangelo Rangel MD Active BUPROPION HCL (SMOKING DETER) 150 MG [id number] 1 a day for 1 week then 1 twice a day BUPROPION HCL (SMOKING DETER) 66465938379 No Lo nger Active Checo Conklin MD Active SIMVASTATIN 20 MG TABS 1 po qd SIMVASTATIN 7772764715 5 Active Checo Conklin MD Active CHANTIX STARTING MONTH KARTHIK 0.5 MG X 11 & 1 MG X 42 TAB S 0.5mg daily for 3 days, then 0.5mg BID for 4 days, then 1mg BID VARENICLINE TARTRATE 96635827655 No Longer Active Checo Conklin MD Activ e XANAX 0.5 MG TABS 1 po BID PRN anxiety ALPRAZOLAM 09708056573 Active Checo Conklin MD Active CONCERTA 18 MG CR-TABS 1 po q a.m. METHYLPHENID ATE HCL 90832696451 No Longer Active Checo Conklin MD Active AMBIEN 5 MG TAB 1 po qHS PRN Insomnia ZOLPIDEM TARTRATE 47634572190 Active Checo Conklin MD Active TRAZODONE HCL 100 MG TAB 0.5 to 1 po qHS PRN Insomnia TRAZODONE HCL 56493618175 No Longer Active Checo Conklin MD Acti ve FIORICET 325-50-40 MG TAB 1 tablet by mouth four times daily as needed [id number] 20988661865 No Longer Active Checo Conklin MD Active PHENERGAN CREAM* 25mg applied to wrist q6hr PRN Nausea PHENERGAN CREAM* No Longer Active Checo Conklin MD A ctive FLONASE 50 MCG/ACT SUSP 1 spray each nostril am and hs FLUTICASONE PROPIONATE 13033025257 No Longer Active Checo Conklin MD Activ e ANTIPYRINE-BENZOCAINE 5.4-1.4 % SOLN 1-2 drops in affected ear BENZOCAINE-ANTIPYRINE 58423547209 No Longer Active Checo Conklin MD Active CEFDINIR 300 MG CAPS 1 po bid CEFDINIR 66028639 120 No Longer Active Checo Conklin MD Active PREDNISONE 20 MG TAB 2 tabs daily for 3 days, 1 t ab daily for 3 days, 1/2 tab daily for 2 days PREDNISONE 68136228747 No Longer Active Aracelis Conklin MD Active AZITHROMYCIN 250 MG TABS 2 po qd x 1 day, then 1 po qd x 4 days AZITHROMYCIN 00753121462 No Longer Active Checo Conklin MD Active PREDNISONE 20 MG TAB 2 tabs daily for 3 days, 1 t ab daily for 3 days, 1/2 tab daily for 2 days PREDNISONE 91071683411 No Longer Active Checo Conklin MD Active ZITHROMAX Z-KARTHIK 250 MG TABS 2 today, then 1 daily for 4 days 201 09/18/28 AZITHROMYCIN 94292813483 No Longer Active Paul Hamlin MD Active FOCALIN XR 10 MG [id number] 1 po q a.m. D EXMETHYLPHENIDATE HCL 28935611714 No Longer Active Paul Hamlin MD Activ e PERCOCET 10-325 MG TABS 1 tablet every 6 hours as needed for pain OXYCODONE-ACETAMINOPHEN 54493020687 No Longer Active Paul Hamlin MD Active LORTAB 5 5-500 MG TABS 1/2 to 1 tablet by mouth flaquito ry 4 hours as needed for pain HYDROCODONE-ACETAMINOPHEN 88308602426 No Longer Active Checo Conklin MD Active FOCALIN XR 15 MG [id number] 1 po q a.m. D EXMETHYLPHENIDATE HCL 96471716128 No Longer Active Checo Conklin MD Activ e ZOFRAN ODT 4 MG TBDP 1 po q6hr PRN Nausea ONDAN SETRON 01716647720 No Longer Active Checo Conklin MD Active PERCOCET 5-325 MG TABS 1 tablet by mouth every 6 hours as needed OXYCODONE-ACETAMINOPHEN 78811705761 No Longer Active Checo Conklin MD Active PYRIDIUM 200 MG TABS take 1 tab po TID prn urinary pain. PHENAZOPYRIDINE HCL 53343803133 No Longer Active Checo Conklin MD Active FLUCONAZOLE 150 MG TABS take 1 tab po qday once 04/06 FLUCONAZOLE 00252968691 No Longer Active Dangelo Rangel MD Acti ve CIPRO 500 MG TAB 1 tablet by mouth twice daily CIPROFLOXACIN HCL 30909936715 No Longer Active Dangelo Rangel MD Active PYRIDIUM 200 MG TABS take 1 tab po TID prn urinary pain. 0 PYRIDIUM 200 MG TABS 2554330 PHENAZOPYRIDINE HCL Inactive PERCOCET 5-325 MG TABS 1 tablet by mouth every 6 hours as needed PERCOCET 5-325 MG TABS 8570652 OXYCODONE-ACETAMINOPHEN I nactive ZOFRAN ODT 4 MG TBDP 1 po q6hr PRN Nausea ZOFRAN ODT 4 MG TBDP 675415 ONDANSETRON Inactive FOCALIN XR 15 MG [id number] 1 po q a.m. F OCALIN XR 15 MG [id number] DEXMETHYLPHENIDATE HCL Inactive LORTAB 5 5-500 MG TABS 1/2 to 1 tablet by mouth flaquito ry 4 hours as needed for pain LORTAB 5 5-500 MG TABS HYDROCODONE-A CETAMINOPHEN Inactive PERCOCET 10-325 MG TABS 1 tablet every 6 hours as needed for pain PERCOCET 10-325 MG TABS 8590291 OXYCODONE-ACETAMINOPHEN Inactive FOCALIN XR 10 MG [id number] 1 po q a.m. F OCALIN XR 10 MG [id number] DEXMETHYLPHENIDATE HCL Inactive CEFDINIR 300 MG CAPS [...] PRN Insomnia TRAZODONE HCL 100 MG TAB 764016 TRAZODONE HCL Inactive CONCERTA 18 MG CR-TABS [...] s prn cough HYDROCODONE-ACETAMINOPHEN 5-325 MG TABS 934414 HYDROCODONE-ACETAMINOPHEN Inactive PHENAZOPYRIDINE HCL 200 MG TABS take 1 tab po TID for bladder pa in PHENAZOPYRIDINE HCL 200 MG TABS 3919767 PHENAZOPYRIDINE HCL Inactive HYDROCODONE-ACETAMINOPHEN 5-325 MG TABS 1 po q 6hr PRN Pain 2013 HYDROCODONE-ACETAMINOPHEN 5-325 MG TABS 476275 HYDROCODONE-ACETAMINOPHEN Inactive CELEXA 20 MG TABS 1 tablet by mouth daily CELEXA 20 MG TABS 019566 CITALOPRAM HYDROBROMIDE Inactive REGLAN 10 MG TAB 1 po TID PRN Nausea REGLAN 10 MG TAB 093470 METOCLOPRAMIDE HCL Inactive LAMISIL 250 MG TAB 1 po qd LAMISIL 250 MG TAB 746345 TERBINAFINE HCL Inactive DICLOFENAC SODIUM 75 MG TBEC 1 tablet by mouth twice daily P RN Knee pain DICLOFENAC SODIUM 75 MG TBEC 141980 DICLOFENAC S ODIUM Inactive METOCLOPRAMIDE HCL 10 MG ORAL TABS take one PO tid PRN nausea 20 29/12/14 METOCLOPRAMIDE HCL 10 MG ORAL TABS 074358 METOCLOPRAMID E HCL Inactive TERBINAFINE HCL 250 MG ORAL TABS take one table PO one time abran y TERBINAFINE HCL 250 MG ORAL TABS 956589 TERBINAFINE HCL Inactive BUPROPION HCL ER (SR) 100 MG ORAL [id number] take one t ablet by mouth one time daily for one week then take 1 two times daily BUPROPION HCL ER (SR) 100 MG ORAL [id number] BUPROPION HCL Inacti ve TRAVEL SICKNESS 25 MG ORAL CHEW chew and swallow one t ablet every 6 hours as needed TRAVEL SICKNESS 25 MG ORAL CHEW 861513 MECLIZINE HCL Inactive SUMATRIPTAN SUCCINATE 100 MG ORAL TABS Take one PRN for migrane SUMATRIPTAN SUCCINATE 100 MG ORAL TABS 790475 SUMATRIPT AN SUCCINATE Inactive COMPRO 25 MG RECTAL SUPP insert or apply one supposit ory rectally as directed every 12 hours as needed for nausea COMP RO 25 MG RECTAL SUPP 996983 PROCHLORPERAZINE Inactive ONDANSETRON [address] one tablet on tongue and allow to dissolve every 6 hours as needed for vomitting ON DANSETRON 8 MG ORAL TBDP 205856 ONDANSETRON Inactive HYDROCODONE-ACETAMINOPHEN 5-325 MG TABS 0.5 to 1 tab b y mouth every 6 hours as needed HYDROCODONE-ACETAMINOPHEN 5-325 MG TABS 8 25317 HYDROCODONE-ACETAMINOPHEN Inactive BACTRIM DS 800-160 MG TAB 1 tab by mouth twice daily 2 BACTRIM DS 800-160 MG TAB 071047 TRIMETHOPRIM-SULFAMETHOXAZOLE Inac tive DIFLUCAN 150 MG TAB 1 tablet by mouth if needed, hold until symptoms start DIFLUCAN 150 MG TAB 113986 FLUCONAZOLE Inactive IBUPROFEN 800 MG TABS 1 tab every 8 hours with food 31/03/21 IBUPROFEN 800 MG TABS 641715 IBUPROFEN Inactive HYDROCODONE-ACETAMINOPHEN 5-325 MG TABS 1 tab by mouth every 6 hours as needed HYDROCODONE-ACETAMINOPHEN 5-325 MG TABS 060732 HYDROCODONE-ACETAMINOPHEN Inactive BACTROBAN 2 % CREAM Apply to affected area BID for up to 10 days BACTROBAN 2 % CREAM 342543 MUPIROCIN CALCIUM Inactive MAGNESIUM CITRATE 1.745 GM/30ML ORAL SOLN 150ml po BID PRN C onstipation MAGNESIUM CITRATE 1.745 GM/30ML ORAL SOLN 745535 0 MAGNESIUM CITRATE Inactive DIFLUCAN 150 MG TAB 1 tablet by mouth qod DIFLUCAN 150 MG TAB 618414 FLUCONAZOLE Inactive BACTRIM DS 800-160 MG TAB 1 tab by mouth twice daily 2 BACTRIM DS 800-160 MG TAB 867222 TRIMETHOPRIM-SULFAMETHOXAZOLE Inac tive CLARITIN 10 MG TAB 1 tablet by mouth daily as needed for allergi es CLARITIN 10 MG TAB 211336 LORATADINE Inactive CIPRO 500 MG TAB 1 tablet by mouth twice daily CIPRO 500 MG TAB 076238 CIPROFLOXACIN HCL Inactive FLUCONAZOLE 150 MG TABS take 1 tab po qday once 04/06 FLUCONAZOLE 150 MG TABS 411973 FLUCONAZOLE Inactive ZITHROMAX Z-KARTHIK 250 MG TABS 2 today, then 1 daily for 4 days 201 09/18/28 ZITHROMAX Z-KARTHIK 250 MG TABS 0597126 AZITHROMYCIN Inac tive PREDNISONE 20 MG TAB 2 tabs daily for 3 days, 1 t ab daily for 3 days, 1/2 tab daily for 2 days PREDNISONE 20 MG TAB 989102 PREDNISON E Inactive AZITHROMYCIN 250 MG TABS 2 po qd x 1 day, then 1 po qd x 4 days AZITHROMYCIN 250 MG TABS 4567198 AZITHROMYCIN Inactiv e PREDNISONE 20 MG TAB 2 tabs daily for 3 days, 1 t ab daily for 3 days, 1/2 tab daily for 2 days PREDNISONE 20 MG TAB 616699 PREDNISON E Inactive CEFDINIR 300 MG CAPS by mouth twice a day CEFDINIR 300 MG CAPS 070621 CEFDINIR Inactive TRIAMCINOLONE ACETONIDE 0.1 % OINT Apply to affected a reas TID for up to 2 weeks TRIAMCINOLONE ACETONIDE 0.1 % OINT 799741 6 TRIAMCINOLONE ACETONIDE Inactive PREDNISONE 20 MG TAB 2 tabs daily for 3 days, 1 t ab daily for 3 days, 1/2 tab daily for 2 days PREDNISONE 20 MG TAB 870249 PREDNISON E Inactive BACTRIM DS 800-160 MG TABS 1 po BID x 7 days 0 BACTRIM DS 800-160 MG TABS 231994 SULFAMETHOXAZOLE-TRIMETHOPRIM Inactive CIPRO 500 MG TAB 1 tablet by mouth twice daily CIPRO 500 MG TAB 399555 CIPROFLOXACIN HCL Inactive AZITHROMYCIN 250 MG TABS 2 po qd x 1 day, then 1 po qd x 4 days AZITHROMYCIN 250 MG TABS 0870932 AZITHROMYCIN Inactiv e FLAGYL 500 MG TAB 1 tablet by mouth bid FLAGYL 500 MG TAB 258310 METRONIDAZOLE Inactive AZITHROMYCIN 250 MG TABS 2 po qd x 1 day, then 1 po qd x 4 days AZITHROMYCIN 250 MG TABS 6360219 AZITHROMYCIN Inactiv e Immunizations Vaccine Administration Date [...] Report: CBC W/DIFF, Comp. Metabolic Panel, Qual [facility] [place] - Chemistry sodium, serum 139 mmol/L 643-658 5976/10/21 carbon dioxide, venous blood 33.5 mmol/L 21.0-32 [...] Report: CBC W/DIFF, Comp. Metabolic Panel, Qual [facility] [place] - Hematology leukocyte [...] 248 10^3/MM^3 10*3/mm3 142-424 Lab Report: Chlamydia/GC APTIMA/[id number] - Lab chlamydia DNA probe NOT DETECTED NOT DETECTED Lab Report: Chlamydia/GC APTIMA/[id number] - Microbiology Neisseria gonorrhoeae DNA probe NOT DETECTED NO T DETECTED Lab Report: Comp. Metabolic Panel, Thyro id Stimulating Hormone (L), Eryt ... - Chemistry sodium, serum 137 mmol/L 367-465 8693/05/27 carbon dioxide, venous blood 29.1 mmol/L 21.0-32 [...] 5.0-8.5 Encounters Code Encounter Date Provider Facility CPT-15066 Level 4 Est. Patient 16:06:48 SOFT METALS HAND ENGRAVER Checo Conklin MD [facility] CPT-99845 Level 3 Est. Patient 09:11:49 CDT Efren almendarez [facility] CPT-15772 Level 2 Est. Patient 19:53:27 CDT Tanner hill MD [facility] CPT-49406 Level 3 Est. Patient 09:15:34 CDT Efren almendarez [facility] CPT-96380 Level 3 Est. Patient 11:28:51 SOFT METALS HAND ENGRAVER Efren almendarez [facility] CPT-43820 Level 4 Est. Patient 13:55:46 SOFT METALS HAND ENGRAVER Checo Conklin MD [facility] CPT-72064 Level 4 Est. Patient 17:10:53 CDT Checo Conklin MD [facility] CPT-35683 Level 3 Est. Patient 15:56:22 CDT Checo Conklin MD [facility] CPT-92087 Level 3 Est. Patient 15:29:07 CDT Checo Conklin MD [facility] CPT-88030 Level 3 Est. Patient 14:38:41 CDT Checo Conklin MD [facility] CPT-88417 Level 3 Est. Patient 15:22:03 SOFT METALS HAND ENGRAVER Thomas reynolds DO [facility] CPT-40281 Level 3 Est. Patient 13:34:17 SOFT METALS HAND ENGRAVER Checo Conklin MD [facility] CPT-55933 Level 3 Est. Patient 12:29:32 CDT Dangelo arroyo MD [facility] CPT-70320 Level 3 Est. Patient 16:53:02 CDT Checo Conklin MD [facility] CPT-29434 Level 3 Est. Patient 16:37:13 CDT Checo Conklin MD [facility] CPT-75581 Level 3 Est. Patient 16:16:59 CDT Paul Hamlin MD [facility] CPT-06171 Level 3 Est. Patient 14:20:13 CDT Dangelo arroyo MD [facility] CPT-37278 Level 4 Est. Patient 11:29:33 CDT Checo Conklin MD [facility] CPT-75618 Level 3 Est. Patient 17:08:31 CDT Checo Conklin MD [facility] CPT-36034 Level 3 Est. Patient 16:50:42 SOFT METALS HAND ENGRAVER Checo Conklin MD [facility] CPT-50275 Level 4 Est. Patient 09:26:08 SOFT METALS HAND ENGRAVER Checo Conklin MD [facility] CPT-80236 Level 3 Est. Patient 11:37:10 CDT Checo Conklin MD [facility] CPT-26393 Level 4 Est. Patient 14:07:38 CDT Checo Conklin MD [facility] CPT-72534 Level 3 Est. Patient 09:54:41 CDT Checo Conklin MD [facility] CPT-68445 Level 3 Est. Patient 11:10:54 CDT Paul Hamlin MD [facility] CPT-12767 Level 3 Est. Patient 14:16:56 SOFT METALS HAND ENGRAVER Checo Conklin MD [facility] CPT-79066 Level 3 Est. Patient 11:04:11 SOFT METALS HAND ENGRAVER Checo Conklin MD [facility] CPT-23764 Level 3 Est. Patient 17:09:26 CDT Dangelo arroyo MD [facility] CPT-62701 Level 3 Est. Patient 16:54:37 CDT Checo Conklin MD [facility] Procedures Code Procedure Name Date Entry Date Standard Desc ription CPT-65677 UA w micro - LAB USE ONLY 17:06:46 CDT 2015 CPT-72539 [facility] Qual - LAB USE ONLY 17:06:46 CDT 05/06 CPT-13539 CMP - LAB USE ONLY 17:06:46 CDT CPT-74527 CBC with Diff - LAB USE ONLY 17:06:45 CDT 2 CPT-83599 Venipuncture Draw Fee 17:06:45 CDT CPT-LR Lesion Removal 19:53:27 CDT CPT-OV Office Visit 11:31:28 CDT CPT-72255 Tubersol 09:39:29 CDT CPT-J2550 Phenergan 25 mg (Promethazine) 13:59:02 SOFT METALS HAND ENGRAVER CPT-J1885 Toradol 60 mg (Ketorolac) 13:59:02 SOFT METALS HAND ENGRAVER 2012
--- OUTSIDE RECORDS SUMMARY | 2019-09-29 01:37 | XMS REPORT | Clinical Summary ---
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 Tanner Carrillo MD Neoplasm of uncertain behavior of skin BREAST CANCER ICD-V16.3 Inactive Checo Joshua FH [...] tab by mouth twice daily 2 TRIMETHOPRIM-SULFAMETHOXAZOLE 11506942644 No Longer Active Tanner Carrillo MD Active DIFLUCAN 150 MG TAB 1 tablet by mouth qod FLUCO NAZOLE 43698388889 No Longer Active Efren Medel APRN Active CLARITIN 10 MG TAB 1 tablet by mouth daily as needed for allergies LORATADINE 56511645915 Active Jillina Lizy PROGRAM CONSULTANT Active AZITHROMYCIN 250 MG TABS 2 po qd x 1 day, then 1 po qd x 4 days AZITHROMYCIN 82912499278 No Longer Active Jillina Lizy RIDDLEN Active FLAGYL 500 MG TAB 1 tablet by mouth bid METRONI DAZOLE 20832436136 No Longer Active Checo Conklin MD Active FOCALIN XR 10 MG ORAL [id number] 1 po q a.m. DEX METHYLPHENIDATE HCL 29111726603 Active Checo Conklin MD Active MAGNESIUM CITRATE 1.745 GM/30ML ORAL SOLN 150ml po BID PRN C onstipation MAGNESIUM CITRATE 58014013228 No Longer Active Checo Conklin MD Active BACTROBAN 2 % CREAM Apply to affected area BID for up to 10 days MUPIROCIN CALCIUM 81110446341 No Longer Active Checo Conklin MD Active HYDROCODONE-ACETAMINOPHEN 5-325 MG TABS 1 tab by mouth every 6 hours as needed HYDROCODONE-ACETAMINOPHEN 25093711453 No Longer Activ e Checo Conklin MD Active IBUPROFEN 800 MG TABS 1 tab every 8 hours with food 20 31/03/21 IBUPROFEN 67345581631 No Longer Active Checo Conklin MD Activ e DIFLUCAN 150 MG TAB 1 tablet by mouth if needed, hold until symptoms start FLUCONAZOLE 03645286939 No Longer Active Checo Ortiz MD Active BACTRIM DS 800-160 MG TAB 1 tab by mouth twice daily 2 TRIMETHOPRIM-SULFAMETHOXAZOLE 21927668973 No Longer Active Corry leong LPN Active MIRALAX PACK 1 po qd PRN Constipation POLYETHYL JOEL GLYCOL 3350 68633050614 Active Checo Conklin MD Active HYDROCODONE-ACETAMINOPHEN 5-325 MG TABS 0.5 to 1 tab b y mouth every 6 hours as needed HYDROCODONE-ACETAMINOPHEN 73548175912 No Longer Active Checo Conklin MD Active ONDANSETRON [address] one tablet on tongue and allow to dissolve every 6 hours as needed for vomitting ONDANSETRO N 21713572907 No Longer Active Checo Conklin MD Active COMPRO 25 MG RECTAL SUPP insert or apply one supposit ory rectally as directed every 12 hours as needed for nausea PROCHLORPERA ZINE 13203263160 No Longer Active Checo Conklin MD Active SUMATRIPTAN SUCCINATE 100 MG ORAL TABS Take one PRN for migrane SUMATRIPTAN SUCCINATE 27084724345 No Longer Active Checo Conklin MD Active TRAVEL SICKNESS 25 MG ORAL CHEW chew and swallow one t ablet every 6 hours as needed MECLIZINE HCL 77085965212 No Longer Active Joe Conklin MD Active BUPROPION HCL ER (SR) 100 MG ORAL [id number] take one t ablet by mouth one time daily for one week then take 1 two times daily BUPROPION HCL 35893881993 No Longer Active Checo Conklin MD Activ e TERBINAFINE HCL 250 MG ORAL TABS take one table PO one time abran y TERBINAFINE HCL 42918349065 No Longer Active Checo Conklin MD Active METOCLOPRAMIDE HCL 10 MG ORAL TABS take one PO tid PRN nausea 20 29/12/14 METOCLOPRAMIDE HCL 88245366681 No Longer Active Checo Conklin MD Active DICLOFENAC SODIUM 75 MG TBEC 1 tablet by mouth twice daily P RN Knee pain DICLOFENAC SODIUM 48934657831 No Longer Active Checo Conklin MD Active LAMISIL 250 MG TAB 1 po qd TERBINAFINE HCL 548 86828220 No Longer Active Checo Conklin MD Active REGLAN 10 MG TAB 1 po TID PRN Nausea METOCLOPRA MIDE HCL 22881971868 No Longer Active Checo Conklin MD Active CELEXA 20 MG TABS 1 tablet by mouth daily CITALOPRAM HYDROBROMIDE 63018597787 No Longer Active Checo Conklin MD Activ e AZITHROMYCIN 250 MG TABS 2 po qd x 1 day, then 1 po qd x 4 days AZITHROMYCIN 48427008776 No Longer Active Checo Conklin MD Active HYDROCODONE-ACETAMINOPHEN 5-325 MG TABS 1 po q 6hr PRN Pain 2013 HYDROCODONE-ACETAMINOPHEN 39216304818 No Longer Active Lenora Conklin MD Active PHENAZOPYRIDINE HCL 200 MG TABS take 1 tab po TID for bladder pa in PHENAZOPYRIDINE HCL 41243834737 No Longer Active Checo Joshua Active CIPRO 500 MG TAB 1 tablet by mouth twice daily CIPROFLOXACIN HCL 30308487173 No Longer Active Dangelo Rangel MD Active HYDROCODONE-ACETAMINOPHEN 5-325 MG TABS 1/2 to 1 po q 4 hour s prn cough HYDROCODONE-ACETAMINOPHEN 89885192290 No Longer Activ e Dangelo Rangel MD Active BACTRIM DS 800-160 MG TABS 1 po BID x 7 days 0 SULFAMETHOXAZOLE-TRIMETHOPRIM 29397017928 No Longer Active Checo Conklin MD Active PREDNISONE 20 MG TAB 2 tabs daily for 3 days, 1 t ab daily for 3 days, 1/2 tab daily for 2 days PREDNISONE 08862769552 No Longer Active Checo Conklin MD Active TRIAMCINOLONE ACETONIDE 0.1 % OINT Apply to affected a reas TID for up to 2 weeks TRIAMCINOLONE ACETONIDE 97674599397 No Longer A ctive Checo Conklin MD Active CEFDINIR 300 MG CAPS by mouth twice a day CEFDI JAZZY 46887445212 No Longer Active Dangelo Rangel MD Active BUPROPION HCL (SMOKING DETER) 150 MG [id number] 1 a day for 1 week then 1 twice a day BUPROPION HCL (SMOKING DETER) 90688755894 No Lo nger Active Checo Conklin MD Active SIMVASTATIN 20 MG TABS 1 po qd SIMVASTATIN 6062919733 5 Active Checo Conklin MD Active CHANTIX STARTING MONTH KARTHIK 0.5 MG X 11 & 1 MG X 42 TAB S 0.5mg daily for 3 days, then 0.5mg BID for 4 days, then 1mg BID VARENICLINE TARTRATE 79675161816 No Longer Active Checo Conklin MD Activ e XANAX 0.5 MG TABS 1 po BID PRN anxiety ALPRAZOLAM 38562849408 Active Checo Conklin MD Active CONCERTA 18 MG CR-TABS 1 po q a.m. METHYLPHENID ATE HCL 25443773171 No Longer Active Checo Conklin MD Active AMBIEN 5 MG TAB 1 po qHS PRN Insomnia ZOLPIDEM TARTRATE 95992016689 Active Checo Conklin MD Active TRAZODONE HCL 100 MG TAB 0.5 to 1 po qHS PRN Insomnia TRAZODONE HCL 39261295926 No Longer Active Checo Conklin MD Acti ve FIORICET 325-50-40 MG TAB 1 tablet by mouth four times daily as needed [id number] 82414816196 No Longer Active Checo Conklin MD Active PHENERGAN CREAM* 25mg applied to wrist q6hr PRN Nausea PHENERGAN CREAM* No Longer Active Checo Conklin MD A ctive FLONASE 50 MCG/ACT SUSP 1 spray each nostril am and hs FLUTICASONE PROPIONATE 44168923996 No Longer Active Checo Conlkin MD Activ e ANTIPYRINE-BENZOCAINE 5.4-1.4 % SOLN 1-2 drops in affected ear BENZOCAINE-ANTIPYRINE 08673682298 No Longer Active Checo Conklin MD Active CEFDINIR 300 MG CAPS 1 po bid CEFDINIR 83716255 120 No Longer Active Checo Conklin MD Active PREDNISONE 20 MG TAB 2 tabs daily for 3 days, 1 t ab daily for 3 days, 1/2 tab daily for 2 days PREDNISONE 59578941312 No Longer Active Aracelis Conklin MD Active AZITHROMYCIN 250 MG TABS 2 po qd x 1 day, then 1 po qd x 4 days AZITHROMYCIN 78487557845 No Longer Active Checo Conklin MD Active PREDNISONE 20 MG TAB 2 tabs daily for 3 days, 1 t ab daily for 3 days, 1/2 tab daily for 2 days PREDNISONE 78925319269 No Longer Active Checo Conklin MD Active ZITHROMAX Z-KARTHIK 250 MG TABS 2 today, then 1 daily for 4 days 201 09/18/28 AZITHROMYCIN 29732442766 No Longer Active Paul Hamlin MD Active FOCALIN XR 10 MG [id number] 1 po q a.m. D EXMETHYLPHENIDATE HCL 55280431011 No Longer Active Paul Hamlin MD Activ e PERCOCET 10-325 MG TABS 1 tablet every 6 hours as needed for pain OXYCODONE-ACETAMINOPHEN 90788308123 No Longer Active Paul Hamlin MD Active LORTAB 5 5-500 MG TABS 1/2 to 1 tablet by mouth flaquito ry 4 hours as needed for pain HYDROCODONE-ACETAMINOPHEN 25289216457 No Longer Active Checo Conklin MD Active FOCALIN XR 15 MG [id number] 1 po q a.m. D EXMETHYLPHENIDATE HCL 32825326400 No Longer Active Checo Conklin MD Activ e ZOFRAN ODT 4 MG TBDP 1 po q6hr PRN Nausea ONDAN SETRON 80040986996 No Longer Active Checo Conklin MD Active PERCOCET 5-325 MG TABS 1 tablet by mouth every 6 hours as needed OXYCODONE-ACETAMINOPHEN 99725201160 No Longer Active Checo Conklin MD Active PYRIDIUM 200 MG TABS take 1 tab po TID prn urinary pain. 0 PHENAZOPYRIDINE HCL 27157218846 No Longer Active Checo Conklin MD Active FLUCONAZOLE 150 MG TABS take 1 tab po qday once 0 04/06 FLUCONAZOLE 74763706652 No Longer Active Dangelo Rangel MD Acti ve CIPRO 500 MG TAB 1 tablet by mouth twice daily CIPROFLOXACIN HCL 23258488219 No Longer Active Dangelo Rangel MD Active PYRIDIUM 200 MG TABS take 1 tab po TID prn urinary pain. 0 PYRIDIUM 200 MG TABS 7919719 PHENAZOPYRIDINE HCL Inactive PERCOCET 5-325 MG TABS 1 tablet by mouth every 6 hours as needed PERCOCET 5-325 MG TABS 5196244 OXYCODONE-ACETAMINOPHEN I nactive ZOFRAN ODT 4 MG TBDP 1 po q6hr PRN Nausea ZOFRAN ODT 4 MG TBDP 548420 ONDANSETRON Inactive FOCALIN XR 15 MG [id number] 1 po q a.m. F OCALIN XR 15 MG [id number] DEXMETHYLPHENIDATE HCL Inactive LORTAB 5 5-500 MG TABS 1/2 to 1 tablet by mouth flaquito ry 4 hours as needed for pain LORTAB 5 5-500 MG TABS HYDROCODONE-A CETAMINOPHEN Inactive PERCOCET 10-325 MG TABS 1 tablet every 6 hours as needed for pain PERCOCET 10-325 MG TABS 8429031 OXYCODONE-ACETAMINOPHEN Inactive FOCALIN XR 10 MG [id number] 1 po q a.m. F OCALIN XR 10 MG [id number] DEXMETHYLPHENIDATE HCL Inactive CEFDINIR 300 MG CAPS 1 po bid CEFDINIR 300 MG CAPS 20 0346 CEFDINIR Inactive ANTIPYRINE-BENZOCAINE 5.4-1.4 % SOLN 1-2 drops in affected ear ANTIPYRINE-BENZOCAINE 5.4-1.4 % SOLN 748229 BENZOCAINE-ANTIPYRINE I nactive FLONASE 50 MCG/ACT SUSP [...] PRN Insomnia TRAZODONE HCL 100 MG TAB 948620 TRAZODONE HCL Inactive CONCERTA 18 MG CR-TABS [...] s prn cough HYDROCODONE-ACETAMINOPHEN 5-325 MG TABS 248787 HYDROCODONE-ACETAMINOPHEN Inactive PHENAZOPYRIDINE HCL 200 MG TABS take 1 tab po TID for bladder pa in PHENAZOPYRIDINE HCL 200 MG TABS 0292927 PHENAZOPYRIDINE HCL Inactive HYDROCODONE-ACETAMINOPHEN 5-325 MG TABS 1 po q 6hr PRN Pain 2013 HYDROCODONE-ACETAMINOPHEN 5-325 MG TABS 699437 HYDROCODONE-ACETAMINOPHEN Inactive CELEXA 20 MG TABS 1 tablet by mouth daily CELEXA 20 MG TABS 844031 CITALOPRAM HYDROBROMIDE Inactive REGLAN 10 MG TAB 1 po TID PRN Nausea REGLAN 10 MG TAB 999385 METOCLOPRAMIDE HCL Inactive LAMISIL 250 MG TAB 1 po qd LAMISIL 250 MG TAB 581831 TERBINAFINE HCL Inactive DICLOFENAC SODIUM 75 MG TBEC 1 tablet by mouth twice daily P RN Knee pain DICLOFENAC SODIUM 75 MG TBEC 649206 DICLOFENAC S ODIUM Inactive METOCLOPRAMIDE HCL 10 MG ORAL TABS take one PO tid PRN nausea 20 29/12/14 METOCLOPRAMIDE HCL 10 MG ORAL TABS 298812 METOCLOPRAMID E HCL Inactive TERBINAFINE HCL 250 MG ORAL TABS take one table PO one time abran y TERBINAFINE HCL 250 MG ORAL TABS 864199 TERBINAFINE HCL Inactive BUPROPION HCL ER (SR) 100 MG ORAL [id number] take one t ablet by mouth one time daily for one week then take 1 two times daily BUPROPION HCL ER (SR) 100 MG ORAL [id number] BUPROPION HCL Inacti ve TRAVEL SICKNESS 25 MG ORAL CHEW chew and swallow one t ablet every 6 hours as needed TRAVEL SICKNESS 25 MG ORAL CHEW 330083 MECLIZINE HCL Inactive SUMATRIPTAN SUCCINATE 100 MG ORAL TABS Take one PRN for migrane SUMATRIPTAN SUCCINATE 100 MG ORAL TABS 603276 SUMATRIPT AN SUCCINATE Inactive COMPRO 25 MG RECTAL SUPP insert or apply one supposit ory rectally as directed every 12 hours as needed for nausea COMP RO 25 MG RECTAL SUPP 668481 PROCHLORPERAZINE Inactive ONDANSETRON [address] one tablet on tongue and allow to dissolve every 6 hours as needed for vomitting ON DANSETRON 8 MG ORAL TBDP 340883 ONDANSETRON Inactive HYDROCODONE-ACETAMINOPHEN 5-325 MG TABS 0.5 to 1 tab b y mouth every 6 hours as needed HYDROCODONE-ACETAMINOPHEN 5-325 MG TABS 8 12653 HYDROCODONE-ACETAMINOPHEN Inactive BACTRIM DS 800-160 MG TAB 1 tab by mouth twice daily 2 BACTRIM DS 800-160 MG TAB 949995 TRIMETHOPRIM-SULFAMETHOXAZOLE Inac tive DIFLUCAN 150 MG TAB 1 tablet by mouth if needed, hold until symptoms start DIFLUCAN 150 MG TAB 331836 FLUCONAZOLE Inactive IBUPROFEN 800 MG TABS 1 tab every 8 hours with food 31/03/21 IBUPROFEN 800 MG TABS 735905 IBUPROFEN Inactive HYDROCODONE-ACETAMINOPHEN 5-325 MG TABS 1 tab by mouth every 6 hours as needed HYDROCODONE-ACETAMINOPHEN 5-325 MG TABS 223199 HYDROCODONE-ACETAMINOPHEN Inactive BACTROBAN 2 % CREAM Apply to affected area BID for up to 10 days BACTROBAN 2 % CREAM 359133 MUPIROCIN CALCIUM Inactive MAGNESIUM CITRATE 1.745 GM/30ML ORAL SOLN 150ml po BID PRN C onstipation MAGNESIUM CITRATE 1.745 GM/30ML ORAL SOLN 652591 0 MAGNESIUM CITRATE Inactive DIFLUCAN 150 MG TAB 1 tablet by mouth qod DIFLUCAN 150 MG TAB 709726 FLUCONAZOLE Inactive BACTRIM DS 800-160 MG TAB 1 tab by mouth twice daily 2 BACTRIM DS 800-160 MG TAB 982647 TRIMETHOPRIM-SULFAMETHOXAZOLE Inac tive CIPRO 500 MG TAB 1 tablet by mouth twice daily CIPRO 500 MG TAB 754725 CIPROFLOXACIN HCL Inactive FLUCONAZOLE 150 MG TABS take 1 tab po qday once 04/06 FLUCONAZOLE 150 MG TABS 238167 FLUCONAZOLE Inactive ZITHROMAX Z-KARTHIK 250 MG TABS 2 today, then 1 daily for 4 days 201 09/18/28 ZITHROMAX Z-KARTHIK 250 MG TABS 3241930 AZITHROMYCIN Inac tive PREDNISONE 20 MG TAB 2 tabs daily for 3 days, 1 t ab daily for 3 days, 1/2 tab daily for 2 days PREDNISONE 20 MG TAB 943457 PREDNISON E Inactive AZITHROMYCIN 250 MG TABS 2 po qd x 1 day, then 1 po qd x 4 days AZITHROMYCIN 250 MG TABS 3856726 AZITHROMYCIN Inactiv e PREDNISONE 20 MG TAB 2 tabs daily for 3 days, 1 t ab daily for 3 days, 1/2 tab daily for 2 days PREDNISONE 20 MG TAB 937091 PREDNISON E Inactive CEFDINIR 300 MG CAPS by mouth twice a day CEFDINIR 300 MG CAPS 603183 CEFDINIR Inactive TRIAMCINOLONE ACETONIDE 0.1 % OINT Apply to affected a reas TID for up to 2 weeks TRIAMCINOLONE ACETONIDE 0.1 % OINT 355600 6 TRIAMCINOLONE ACETONIDE Inactive PREDNISONE 20 MG TAB 2 tabs daily for 3 days, 1 t ab daily for 3 days, 1/2 tab daily for 2 days PREDNISONE 20 MG TAB 328447 PREDNISON E Inactive BACTRIM DS 800-160 MG TABS 1 po BID x 7 days 0 BACTRIM DS 800-160 MG TABS 033687 SULFAMETHOXAZOLE-TRIMETHOPRIM Inactive CIPRO 500 MG TAB 1 tablet by mouth twice daily CIPRO 500 MG TAB 825376 CIPROFLOXACIN HCL Inactive AZITHROMYCIN 250 MG TABS 2 po qd x 1 day, then 1 po qd x 4 days AZITHROMYCIN 250 MG TABS 6517034 AZITHROMYCIN Inactiv e FLAGYL 500 MG TAB 1 tablet by mouth bid FLAGYL 500 MG TAB 629126 METRONIDAZOLE Inactive AZITHROMYCIN 250 MG TABS 2 po qd x 1 day, then 1 po qd x 4 days AZITHROMYCIN 250 MG TABS 5056256 AZITHROMYCIN Inactiv e Immunizations Vaccine Administration Date [...] ... - Chemistry sodium, serum 141 mmol/L 430-566 9233/01/26 carbon dioxide, venous blood 30.0 mmol/L 21.0-32 .0 potassium, serum 4.0 mmol/L 3.5-5.2 chloride, serum 105 mmol/L 98-107 blood glucose 85 mg/dL 65-110 urea nitrogen, blood 9 mg/dL 7-18 creatinine, serum 0.66 mg/dL 0.55-1.30 alanine aminotransferase (SGPT), serum 31 U/L 12-78 aspartate aminotransferase (SGOT), serum 21 U/L 15-37 calcium, serum 8.2 mg/dL 8.5-10.1 bilirubin, serum, total 1.10 mg/dL 0.00-1.00 cholesterol, serum 178 mg/dL 342-852 6702/01/26 triglyceride, serum, fasting 149 mg/dL 30-200 HDL [...] ... - Chemistry sodium, serum 137 mmol/L 140-493 7829/05/27 carbon dioxide, venous blood 29.1 mmol/L 21.0-32 [...] 5.0-8.5 Encounters Code Encounter Date Provider Facility CPT-35460 Level 2 Est. Patient 19:53:27 CDT Tanner hill MD [facility] CPT-14938 Level 3 Est. Patient 09:15:34 CDT Efren almendarez [facility] CPT-64374 Level 3 Est. Patient 11:28:51 ANNUAL CAMPAIGN MANAGER Efren almendarez [facility] CPT-81456 Level 4 Est. Patient 13:55:46 ANNUAL CAMPAIGN MANAGER Checo Conklin MD [facility] CPT-91849 Level 4 Est. Patient 17:10:53 CDT Checo Conklin MD [facility] CPT-08046 Level 3 Est. Patient 15:56:22 CDT Checo Conklin MD [facility] CPT-80843 Level 3 Est. Patient 15:29:07 CDT Checo Conklin MD [facility] CPT-29754 Level 3 Est. Patient 14:38:41 CDT Checo Conklin MD [facility] CPT-56009 Level 3 Est. Patient 15:22:03 ANNUAL CAMPAIGN MANAGER Thomas reynolds DO [facility] CPT-05649 Level 3 Est. Patient 13:34:17 ANNUAL CAMPAIGN MANAGER Checo Conklin MD [facility] CPT-44651 Level 3 Est. Patient 12:29:32 CDT Dangelo arroyo MD [facility] CPT-77288 Level 3 Est. Patient 16:53:02 CDT Checo Conklin MD [facility] CPT-33491 Level 3 Est. Patient 16:37:13 CDT Checo Conklin MD [facility] CPT-35261 Level 3 Est. Patient 16:16:59 CDT Paul Hamlin MD [facility] CPT-12722 Level 3 Est. Patient 14:20:13 CDT Dangelo arroyo MD [facility] CPT-32841 Level 4 Est. Patient 11:29:33 CDT Checo Conklin MD [facility] CPT-25409 Level 3 Est. Patient 17:08:31 CDT Checo Conklin MD [facility] CPT-92051 Level 3 Est. Patient 16:50:42 ANNUAL CAMPAIGN MANAGER Checo Conklin MD [facility] CPT-95266 Level 4 Est. Patient 09:26:08 ANNUAL CAMPAIGN MANAGER Checo Conklin MD [facility] CPT-92174 Level 3 Est. Patient 11:37:10 CDT Checo Conklin MD [facility] CPT-83626 Level 4 Est. Patient 14:07:38 CDT Checo Conklin MD [facility] CPT-21652 Level 3 Est. Patient 09:54:41 CDT Checo Conklin MD [facility] CPT-95861 Level 3 Est. Patient 11:10:54 CDT Paul Hamlin MD [facility] CPT-11000 Level 3 Est. Patient 14:16:56 ANNUAL CAMPAIGN MANAGER Checo Conklin MD [facility] CPT-39832 Level 3 Est. Patient 11:04:11 ANNUAL CAMPAIGN MANAGER Checo Conklin MD [facility] CPT-27333 Level 3 Est. Patient 17:09:26 CDT Dangelo arroyo MD [facility] CPT-37860 Level 3 Est. Patient 16:54:37 CDT Checo Conklin MD [facility] Procedures Code Procedure Name Date Entry Date Standard Desc ription CPT-LR Lesion Removal 19:53:27 CDT CPT-OV Office Visit 11:31:28 CDT CPT-86498 Tubersol 09:39:29 CDT CPT-J2550 Phenergan 25 mg (Promethazine) 13:59:02 ANNUAL CAMPAIGN MANAGER CPT-J1885 Toradol 60 mg (Ketorolac) 13:59:02 ANNUAL CAMPAIGN MANAGER 2012
--- OUTSIDE RECORDS SUMMARY | 2019-09-29 01:37 | XMS REPORT | Clinical Summary ---
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 DEX METHYLPHENIDATE HCL 48497530532 Active Checo Conklin MD Active MAGNESIUM CITRATE 1.745 GM/30ML ORAL SOLN 150ml po BID PRN C onstipation MAGNESIUM CITRATE 02880139553 No Longer Active Checo Conklin MD Active BACTROBAN 2 % CREAM Apply to affected area BID for up to 10 days MUPIROCIN CALCIUM 84963303101 No Longer Active Checo Conklin MD Active HYDROCODONE-ACETAMINOPHEN 5-325 MG TABS 1 tab by mouth every 6 hours as needed HYDROCODONE-ACETAMINOPHEN 26948982277 No Longer Activ e Checo Conklin MD Active IBUPROFEN 800 MG TABS 1 tab every 8 hours with food 31/03/21 IBUPROFEN 23733184135 No Longer Active Checo Conklin MD Activ e DIFLUCAN 150 MG TAB 1 tablet by mouth if needed, hold until symptoms start FLUCONAZOLE 18029576392 No Longer Active Checo Ortiz MD Active BACTRIM DS 800-160 MG TAB 1 tab by mouth twice daily 2 TRIMETHOPRIM-SULFAMETHOXAZOLE 64190603998 No Longer Active Corry leong LPN Active MIRALAX PACK 1 po qd PRN Constipation POLYETHYL JOEL GLYCOL 3350 09700769345 Active Checo Conklin MD Active HYDROCODONE-ACETAMINOPHEN 5-325 MG TABS 0.5 to 1 tab b y mouth every 6 hours as needed HYDROCODONE-ACETAMINOPHEN 32454560924 No Longer Active Checo Conklin MD Active ONDANSETRON [address] one tablet on tongue and allow to dissolve every 6 hours as needed for vomitting ONDANSETRO N 65831684750 No Longer Active Checo Conklin MD Active COMPRO 25 MG RECTAL SUPP insert or apply one supposit ory rectally as directed every 12 hours as needed for nausea PROCHLORPERA ZINE 80441747155 No Longer Active Checo Conklin MD Active SUMATRIPTAN SUCCINATE 100 MG ORAL TABS Take one PRN for migrane SUMATRIPTAN SUCCINATE 12058036650 No Longer Active Checo Conklin MD Active TRAVEL SICKNESS 25 MG ORAL CHEW chew and swallow one t ablet every 6 hours as needed MECLIZINE HCL 91916305594 No Longer Active Joe Conklin MD Active BUPROPION HCL ER (SR) 100 MG ORAL [id number] take one t ablet by mouth one time daily for one week then take 1 two times daily BUPROPION HCL 66127090282 No Longer Active Checo Conklin MD Activ e TERBINAFINE HCL 250 MG ORAL TABS take one table PO one time abran y TERBINAFINE HCL 13846435700 No Longer Active Checo Conklin MD Active METOCLOPRAMIDE HCL 10 MG ORAL TABS take one PO tid PRN nausea 20 29/12/14 METOCLOPRAMIDE HCL 00307484232 No Longer Active Checo Conklin MD Active DICLOFENAC SODIUM 75 MG TBEC 1 tablet by mouth twice daily P RN Knee pain DICLOFENAC SODIUM 64725858460 No Longer Active Checo Conklin MD Active LAMISIL 250 MG TAB 1 po qd TERBINAFINE HCL 548 92028606 No Longer Active Checo Conklin MD Active REGLAN 10 MG TAB 1 po TID PRN Nausea METOCLOPRA MIDE HCL 22803837648 No Longer Active Checo Conklin MD Active CELEXA 20 MG TABS 1 tablet by mouth daily CITALOPRAM HYDROBROMIDE 75708749925 No Longer Active Checo Conklin MD Activ e AZITHROMYCIN 250 MG TABS 2 po qd x 1 day, then 1 po qd x 4 days AZITHROMYCIN 75697125068 No Longer Active Checo Conklin MD Active HYDROCODONE-ACETAMINOPHEN 5-325 MG TABS 1 po q 6hr PRN Pain 2013 HYDROCODONE-ACETAMINOPHEN 35107743620 No Longer Active Lenora Conklin MD Active PHENAZOPYRIDINE HCL 200 MG TABS take 1 tab po TID for bladder pa in PHENAZOPYRIDINE HCL 18407724328 No Longer Active Checo Joshua Active CIPRO 500 MG TAB 1 tablet by mouth twice daily CIPROFLOXACIN HCL 12719699690 No Longer Active Dangelo Rangel MD Active HYDROCODONE-ACETAMINOPHEN 5-325 MG TABS 1/2 to 1 po q 4 hour s prn cough HYDROCODONE-ACETAMINOPHEN 50153885063 No Longer Activ e Dangelo Rangel MD Active BACTRIM DS 800-160 MG TABS 1 po BID x 7 days 0 SULFAMETHOXAZOLE-TRIMETHOPRIM 87016143134 No Longer Active Checo Conklin MD Active PREDNISONE 20 MG TAB 2 tabs daily for 3 days, 1 t ab daily for 3 days, 1/2 tab daily for 2 days PREDNISONE 04405255497 No Longer Active Checo Conklin MD Active TRIAMCINOLONE ACETONIDE 0.1 % OINT Apply to affected a reas TID for up to 2 weeks TRIAMCINOLONE ACETONIDE 26624926577 No Longer A ctive Checo Conklin MD Active CEFDINIR 300 MG CAPS by mouth twice a day CEFDI JAZZY 21287071645 No Longer Active Dangelo Rangel MD Active BUPROPION HCL (SMOKING DETER) 150 MG [id number] 1 a day for 1 week then 1 twice a day BUPROPION HCL (SMOKING DETER) 11293993152 No Lo nger Active Checo Conklin MD Active SIMVASTATIN 20 MG TABS 1 po qd SIMVASTATIN 2248469666 5 Active Checo Conklin MD Active CHANTIX STARTING MONTH AKRTHIK 0.5 MG X 11 & 1 MG X 42 TAB S 0.5mg daily for 3 days, then 0.5mg BID for 4 days, then 1mg BID VARENICLINE TARTRATE 62994651598 No Longer Active Checo Conklin MD Activ e XANAX 0.5 MG TABS 1 po BID PRN anxiety ALPRAZOLAM 71004945751 Active Checo Conklin MD Active CONCERTA 18 MG CR-TABS 1 po q a.m. METHYLPHENID ATE HCL 34445681615 No Longer Active Checo Conklin MD Active AMBIEN 5 MG TAB 1 po qHS PRN Insomnia ZOLPIDEM TARTRATE 30245448254 Active Checo Conkiln MD Active TRAZODONE HCL 100 MG TAB 0.5 to 1 po qHS PRN Insomnia TRAZODONE HCL 53423329688 No Longer Active Checo Conklin MD Acti ve FIORICET 325-50-40 MG TAB 1 tablet by mouth four times daily as needed [id number] 86555885691 No Longer Active Checo Conklin MD Active PHENERGAN CREAM* 25mg applied to wrist q6hr PRN Nausea PHENERGAN CREAM* No Longer Active Checo Conklin MD A ctive FLONASE 50 MCG/ACT SUSP 1 spray each nostril am and hs FLUTICASONE PROPIONATE 93897569626 No Longer Active Checo Conklin MD Activ e ANTIPYRINE-BENZOCAINE 5.4-1.4 % SOLN 1-2 drops in affected ear BENZOCAINE-ANTIPYRINE 17394726735 No Longer Active Checo Conklin MD Active CEFDINIR 300 MG CAPS 1 po bid CEFDINIR 12542626 120 No Longer Active Checo Conklin MD Active PREDNISONE 20 MG TAB 2 tabs daily for 3 days, 1 t ab daily for 3 days, 1/2 tab daily for 2 days PREDNISONE 81367978791 No Longer Active M greg Conklin MD Active AZITHROMYCIN 250 MG TABS 2 po qd x 1 day, then 1 po qd x 4 days AZITHROMYCIN 42030910241 No Longer Active Checo Conklin MD Active PREDNISONE 20 MG TAB 2 tabs daily for 3 days, 1 t ab daily for 3 days, 1/2 tab daily for 2 days PREDNISONE 89649156599 No Longer Active Checo Conklin MD Active ZITHROMAX Z-KARTHIK 250 MG TABS 2 today, then 1 daily for 4 days 201 09/18/28 AZITHROMYCIN 54568918429 No Longer Active Paul Hamlin MD Active FOCALIN XR 10 MG [id number] 1 po q a.m. D EXMETHYLPHENIDATE HCL 03328870376 No Longer Active Paul Hamlin MD Activ e PERCOCET 10-325 MG TABS 1 tablet every 6 hours as needed for pain OXYCODONE-ACETAMINOPHEN 74736043492 No Longer Active Paul Hamlin MD Active LORTAB 5 5-500 MG TABS 1/2 to 1 tablet by mouth flaquito ry 4 hours as needed for pain HYDROCODONE-ACETAMINOPHEN 79668275926 No Longer Active Checo Conklin MD Active FOCALIN XR 15 MG [id number] 1 po q a.m. D EXMETHYLPHENIDATE HCL 06839435552 No Longer Active Checo Conklin MD Activ e ZOFRAN ODT 4 MG TBDP 1 po q6hr PRN Nausea ONDAN SETRON 14229820923 No Longer Active Checo Conklin MD Active PERCOCET 5-325 MG TABS 1 tablet by mouth every 6 hours as needed OXYCODONE-ACETAMINOPHEN 05485902174 No Longer Active Checo Conklin MD Active PYRIDIUM 200 MG TABS take 1 tab po TID prn urinary pain. 0 PHENAZOPYRIDINE HCL 38360742345 No Longer Active Checo Conklin MD Active FLUCONAZOLE 150 MG TABS take 1 tab po qday once 04/06 FLUCONAZOLE 00314653844 No Longer Active Dangelo Rangel MD Acti ve CIPRO 500 MG TAB 1 tablet by mouth twice daily CIPROFLOXACIN HCL 25805070376 No Longer Active Dangelo Rangel MD Active PYRIDIUM 200 MG TABS take 1 tab po TID prn urinary pain. 0 PYRIDIUM 200 MG TABS 8903236 PHENAZOPYRIDINE HCL Inactive PERCOCET 5-325 MG TABS 1 tablet by mouth every 6 hours as needed PERCOCET 5-325 MG TABS 6969506 OXYCODONE-ACETAMINOPHEN I nactive ZOFRAN ODT 4 MG TBDP 1 po q6hr PRN Nausea ZOFRAN ODT 4 MG TBDP 349312 ONDANSETRON Inactive FOCALIN XR 15 MG [id number] 1 po q a.m. F OCALIN XR 15 MG [id number] DEXMETHYLPHENIDATE HCL Inactive LORTAB 5 5-500 MG TABS 1/2 to 1 tablet by mouth flaquito ry 4 hours as needed for pain LORTAB 5 5-500 MG TABS HYDROCODONE-A CETAMINOPHEN Inactive PERCOCET 10-325 MG TABS 1 tablet every 6 hours as needed for pain PERCOCET 10-325 MG TABS 1798925 OXYCODONE-ACETAMINOPHEN Inactive FOCALIN XR 10 MG [id number] 1 po q a.m. F OCALIN XR 10 MG [id number] DEXMETHYLPHENIDATE HCL Inactive CEFDINIR 300 MG CAPS 1 po bid CEFDINIR 300 MG CAPS 20 0346 CEFDINIR Inactive ANTIPYRINE-BENZOCAINE 5.4-1.4 % SOLN 1-2 drops in affected ear ANTIPYRINE-BENZOCAINE 5.4-1.4 % SOLN 869923 BENZOCAINE-ANTIPYRINE I nactive FLONASE 50 MCG/ACT SUSP [...] PRN Insomnia TRAZODONE HCL 100 MG TAB 134187 TRAZODONE HCL Inactive CONCERTA 18 MG CR-TABS [...] s prn cough HYDROCODONE-ACETAMINOPHEN 5-325 MG TABS 444928 HYDROCODONE-ACETAMINOPHEN Inactive PHENAZOPYRIDINE HCL 200 MG TABS take 1 tab po TID for bladder pa in PHENAZOPYRIDINE HCL 200 MG TABS 5042313 PHENAZOPYRIDINE HCL Inactive HYDROCODONE-ACETAMINOPHEN 5-325 MG TABS 1 po q 6hr PRN Pain 2013 HYDROCODONE-ACETAMINOPHEN 5-325 MG TABS 240280 HYDROCODONE-ACETAMINOPHEN Inactive CELEXA 20 MG TABS 1 tablet by mouth daily CELEXA 20 MG TABS 619778 CITALOPRAM HYDROBROMIDE Inactive REGLAN 10 MG TAB 1 po TID PRN Nausea REGLAN 10 MG TAB 163909 METOCLOPRAMIDE HCL Inactive LAMISIL 250 MG TAB 1 po qd LAMISIL 250 MG TAB 683414 TERBINAFINE HCL Inactive DICLOFENAC SODIUM 75 MG TBEC 1 tablet by mouth twice daily P RN Knee pain DICLOFENAC SODIUM 75 MG TBEC 255730 DICLOFENAC S ODIUM Inactive METOCLOPRAMIDE HCL 10 MG ORAL TABS take one PO tid PRN nausea 20 29/12/14 METOCLOPRAMIDE HCL 10 MG ORAL TABS 674546 METOCLOPRAMID E HCL Inactive TERBINAFINE HCL 250 MG ORAL TABS take one table PO one time abran y TERBINAFINE HCL 250 MG ORAL TABS 201506 TERBINAFINE HCL Inactive BUPROPION HCL ER (SR) 100 MG ORAL [id number] take one t ablet by mouth one time daily for one week then take 1 two times daily BUPROPION HCL ER (SR) 100 MG ORAL [id number] BUPROPION HCL Inacti ve TRAVEL SICKNESS 25 MG ORAL CHEW chew and swallow one t ablet every 6 hours as needed TRAVEL SICKNESS 25 MG ORAL CHEW 341272 MECLIZINE HCL Inactive SUMATRIPTAN SUCCINATE 100 MG ORAL TABS Take one PRN for migrane SUMATRIPTAN SUCCINATE 100 MG ORAL TABS 297560 SUMATRIPT AN SUCCINATE Inactive COMPRO 25 MG RECTAL SUPP insert or apply one supposit ory rectally as directed every 12 hours as needed for nausea COMP RO 25 MG RECTAL SUPP 986443 PROCHLORPERAZINE Inactive ONDANSETRON [address] one tablet on tongue and allow to dissolve every 6 hours as needed for vomitting ON DANSETRON 8 MG ORAL TBDP 073493 ONDANSETRON Inactive HYDROCODONE-ACETAMINOPHEN 5-325 MG TABS 0.5 to 1 tab b y mouth every 6 hours as needed HYDROCODONE-ACETAMINOPHEN 5-325 MG TABS 8 06683 HYDROCODONE-ACETAMINOPHEN Inactive BACTRIM DS 800-160 MG TAB 1 tab by mouth twice daily 2 BACTRIM DS 800-160 MG TAB 143730 TRIMETHOPRIM-SULFAMETHOXAZOLE Inac tive DIFLUCAN 150 MG TAB 1 tablet by mouth if needed, hold until symptoms start DIFLUCAN 150 MG TAB 057081 FLUCONAZOLE Inactive IBUPROFEN 800 MG TABS 1 tab every 8 hours with food 31/03/21 IBUPROFEN 800 MG TABS 795543 IBUPROFEN Inactive HYDROCODONE-ACETAMINOPHEN 5-325 MG TABS 1 tab by mouth every 6 hours as needed HYDROCODONE-ACETAMINOPHEN 5-325 MG TABS 494196 HYDROCODONE-ACETAMINOPHEN Inactive BACTROBAN 2 % CREAM Apply to affected area BID for up to 10 days BACTROBAN 2 % CREAM 065891 MUPIROCIN CALCIUM Inactive MAGNESIUM CITRATE 1.745 GM/30ML ORAL SOLN 150ml po BID PRN C onstipation MAGNESIUM CITRATE 1.745 GM/30ML ORAL SOLN 306711 0 MAGNESIUM CITRATE Inactive CIPRO 500 MG TAB 1 tablet by mouth twice daily CIPRO 500 MG TAB 073989 CIPROFLOXACIN HCL Inactive FLUCONAZOLE 150 MG TABS take 1 tab po qday once 04/06 FLUCONAZOLE 150 MG TABS 127989 FLUCONAZOLE Inactive ZITHROMAX Z-KARTHIK 250 MG TABS 2 today, then 1 daily for 4 days 201 09/18/28 ZITHROMAX Z-KARTHIK 250 MG TABS 0893807 AZITHROMYCIN Inac tive PREDNISONE 20 MG TAB 2 tabs daily for 3 days, 1 t ab daily for 3 days, 1/2 tab daily for 2 days PREDNISONE 20 MG TAB 668860 PREDNISON E Inactive AZITHROMYCIN 250 MG TABS 2 po qd x 1 day, then 1 po qd x 4 days AZITHROMYCIN 250 MG TABS 2624237 AZITHROMYCIN Inactiv e PREDNISONE 20 MG TAB 2 tabs daily for 3 days, 1 t ab daily for 3 days, 1/2 tab daily for 2 days PREDNISONE 20 MG TAB 114671 PREDNISON E Inactive CEFDINIR 300 MG CAPS by mouth twice a day CEFDINIR 300 MG CAPS 057998 CEFDINIR Inactive TRIAMCINOLONE ACETONIDE 0.1 % OINT Apply to affected a reas TID for up to 2 weeks TRIAMCINOLONE ACETONIDE 0.1 % OINT 382115 6 TRIAMCINOLONE ACETONIDE Inactive PREDNISONE 20 MG TAB 2 tabs daily for 3 days, 1 t ab daily for 3 days, 1/2 tab daily for 2 days PREDNISONE 20 MG TAB 023656 PREDNISON E Inactive BACTRIM DS 800-160 MG TABS 1 po BID x 7 days 0 BACTRIM DS 800-160 MG TABS 536686 SULFAMETHOXAZOLE-TRIMETHOPRIM Inactive CIPRO 500 MG TAB 1 tablet by mouth twice daily CIPRO 500 MG TAB 372395 CIPROFLOXACIN HCL Inactive AZITHROMYCIN 250 MG TABS 2 po qd x 1 day, then 1 po qd x 4 days AZITHROMYCIN 250 MG TABS 6655556 AZITHROMYCIN Inactiv e FLAGYL 500 MG TAB 1 tablet by mouth bid FLAGYL 500 MG TAB 512452 METRONIDAZOLE Inactive Immunizations Vaccine Administration Date Value [...] 5.0-8.5 Encounters Code Encounter Date Provider Facility CPT-00135 Level 4 Est. 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 Patient 17:10:53 CDT Checo Conklin MD [facility] CPT-58497 Level 3 Est. Patient 15:56:22 CDT Checo Conklin MD [facility] CPT-20903 Level 3 Est. Patient 15:29:07 CDT Checo Conklin MD [facility] CPT-76831 Level 3 Est. Patient 14:38:41 CDT Checo Conklin MD [facility] CPT-37225 Level 3 Est. 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 Patient 12:29:32 CDT Dangelo arroyo MD [facility] CPT-36719 Level 3 Est. Patient 16:53:02 CDT Checo Conklin MD [facility] CPT-69142 Level 3 Est. Patient 16:37:13 CDT Checo Conklin MD [facility] CPT-26263 Level 3 Est. Patient 16:16:59 CDT Paul Hamlin MD [facility] CPT-00282 Level 3 Est. Patient 14:20:13 CDT Dangelo arroyo MD [facility] CPT-18013 Level 4 Est. Patient 11:29:33 CDT Checo Conklin MD [facility] CPT-60405 Level 3 Est. Patient 17:08:31 CDT Checo Conklin MD [facility] CPT-90905 Level 3 Est. 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 Patient 11:37:10 CDT Checo Conklin MD [facility] CPT-34109 Level 4 Est. Patient 14:07:38 CDT Checo Conklin MD [facility] CPT-89840 Level 3 Est. Patient 09:54:41 CDT Checo Conklin MD [facility] CPT-28880 Level 3 Est. Patient 11:10:54 CDT Paul Hamlin MD [facility] CPT-06467 Level 3 Est. 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 Patient 17:09:26 CDT Dangelo arroyo MD [facility] CPT-32120 Level 3 Est. Patient 16:54:37 CDT Checo Conklin MD [facility] Procedures Code Procedure Name Date Entry Date Standard Desc ription CPT-OV Office Visit 11:31:28 CDT CPT-69665 Tubersol 09:39:29 CDT CPT-J2550 Phenergan 25 mg (Promethazine) 13:59:02 DISHWASHING MACHINE REPAIRER CPT-J1885 Toradol 60 mg (Ketorolac) 13:59:02 DISHWASHING MACHINE REPAIRER 2012
--- OUTSIDE RECORDS SUMMARY | 2019-09-29 01:38 | XMS REPORT | Clinical Summary ---
Author Author Admin, Bethany Ayala 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 Abdominal pain, generalized Nausea 787.02 Active Efren Medel APRN Nausea alone FH DIABETES ICD-V18.0 Inactive Checo Conklin MD [...] mass, right ICD-611.72 Inactive Checo Conklin MD Sinusitis ICD-461.9 Inactive [...] Sinusitis, acute ICD-461.9 Inactive Checo Ortiz MD Abdominal pain ICD-789.00 Inactive Checo ngo MD Bacterial vaginosis ICD-616.10 Inactive Lenora Conklin MD Medication List Medication Instructions Start Date Stop Date Generic Name NDC Status Provider Patient Instruction PROTONIX 40 MG ORAL TABLET DELAYED RELEASE 1 pill by m outh daily, for acid reflux PANTOPRAZOLE SODIUM 62889331016 No Longer Activ e Corry Méndez LPN Active FLAGYL 500 MG ORAL TABLET 1 tablet by mouth bid 08/29 METRONIDAZOLE 52837530055 No Longer Active Corry Méndez LPN Active CLARITHROMYCIN 500 MG ORAL TABLET 1 tab po BID x 14 days CLARITHROMYCIN 69952988049 No Longer Active Corry Méndez LPN Active AMOXICILLIN 500 MG ORAL CAPSULE 2 po BID x 14 days for H. Pylori AMOXICILLIN 34760200984 No Longer Active Corry Méndez LPN Active PAROXETINE HCL 20 MG ORAL TABLET 1.5 po qd PAR OXETINE HCL 95267976171 Active Checo Conklin MD Active FLUTICASONE PROPIONATE 50 MCG/ACT NASAL SUSPENSION 2 s prays/nostril qd PRN Congestion/Allergies FLUTICASONE PROPIONATE 7998093013 9 No Longer Active Checo Conklin MD Active AMOXICILLIN 500 MG ORAL CAPSULE 2 po BID x 10 days 201 01/15/27 AMOXICILLIN 98308452984 No Longer Active Checo Conklin MD Activ e MIRALAX ORAL POWDER 8.5 to 17g po qd PRN Constipation POLYETHYLENE GLYCOL 3350 77248079649 Active Checo Conklin MD Active CLARITIN 10 MG ORAL TABLET 1 tablet by mouth daily as needed for allergies LORATADINE 40194514683 No Longer Active Checo Ortiz MD Active BACTRIM DS 800-160 MG ORAL TABLET 1 tab by mouth twice daily 201 12/19/26 TRIMETHOPRIM-SULFAMETHOXAZOLE 01251494515 No Longer Active Ragini Carrillo MD Active DIFLUCAN 150 MG ORAL TABLET 1 tablet by mouth qod 2015 FLUCONAZOLE 04830719684 No Longer Active Efren Medel CARD PLAYER Act mike AZITHROMYCIN 250 MG ORAL TABLET 2 po qd x 1 day, then 1 po q d x 4 days AZITHROMYCIN 27301650444 No Longer Active Americollkrupa flores CARD PLAYER Active FLAGYL 500 MG ORAL TABLET 1 tablet by mouth bid 04/13 METRONIDAZOLE 41172962534 No Longer Active Checo Conklin MD Acti ve FOCALIN XR 10 MG ORAL CAPSULE EXTENDED RELEASE 24 HOUR 1 po q a.m. DEXMETHYLPHENIDATE HCL 55766517450 Active Checo Conklin MD Active MAGNESIUM CITRATE 1.745 GM/30ML ORAL SOLUTION 150ml po BID P RN Constipation MAGNESIUM CITRATE 01455798999 No Longer Active Checo Conklin MD Active BACTROBAN 2 % EXTERNAL CREAM Apply to affected area BID for up to 10 days MUPIROCIN CALCIUM 87680375998 No Longer Active Checo Conklin MD Active HYDROCODONE-ACETAMINOPHEN 5-325 MG ORAL TABLET 1 tab b y mouth every 6 hours as needed HYDROCODONE-ACETAMINOPHEN 87203308122 No Longer Active Chceo Conklin MD Active IBUPROFEN 800 MG ORAL TABLET 1 tab every 8 hours with food 03/20 IBUPROFEN 97835019542 No Longer Active Checo Conklin MD Active DIFLUCAN 150 MG ORAL TABLET 1 tablet by mouth if neede d, hold until symptoms start FLUCONAZOLE 44123089109 No Longer Active Checo Conklin MD Active BACTRIM DS 800-160 MG ORAL TABLET 1 tab by mouth twice daily 201 11/23/03 TRIMETHOPRIM-SULFAMETHOXAZOLE 87483898388 No Longer Active K bernice Méndez LPN Active HYDROCODONE-ACETAMINOPHEN 5-325 MG ORAL TABLET 0.5 to 1 tab by mouth every 6 hours as needed HYDROCODONE-ACETAMINOPHEN 95089622943 No Longer Active Checo Conklin MD Active ONDANSETRON 8 MG ORAL TABLET DISINTEGRATING place one tablet on tongue and allow to dissolve every 6 hours as needed for vomitting ONDANSETRON 06752831224 No Longer Active Checo Conklin MD Activ e COMPRO 25 MG RECTAL SUPPOSITORY insert or apply one gazra ppository rectally as directed every 12 hours as needed for nausea PROCHLORPERAZINE 16753230836 No Longer Active Checo Conklin MD A ctive SUMATRIPTAN SUCCINATE 100 MG ORAL TABLET Take one PRN for migran e SUMATRIPTAN SUCCINATE 26040032668 No Longer Active Checo Conklin MD Active TRAVEL SICKNESS 25 MG ORAL TABLET CHEWABLE chew and sw allow one tablet every 6 hours as needed MECLIZINE HCL 66859894830 No Longer A ctive Checo Conklin MD Active BUPROPION HCL ER (SR) 100 MG ORAL TABLET EXTENDED RELE ASE 12 HOUR take one tablet by mouth one time daily for one week then take 1 two times daily BUPROPION HCL 80786861427 No Longer Active Checo gallagher MD Active TERBINAFINE HCL 250 MG ORAL TABLET take one table PO one time da moises TERBINAFINE HCL 26341064160 No Longer Active Checo Conklin MD Active METOCLOPRAMIDE HCL 10 MG ORAL TABLET take one PO tid PRN nausea METOCLOPRAMIDE HCL 21228491417 No Longer Active Checo Conklin MD Active DICLOFENAC SODIUM 75 MG ORAL TABLET DELAYED RELEASE 1 tablet by mouth twice daily PRN Knee pain DICLOFENAC SODIUM 44970845817 No Longer Active Checo Conklin MD Active LAMISIL 250 MG ORAL TABLET 1 po qd TERBINAFI NE HCL 59723069710 No Longer Active Checo Conklin MD Active REGLAN 10 MG ORAL TABLET 1 po TID PRN Nausea 3 METOCLOPRAMIDE HCL 61982789160 No Longer Active Checo Conklin MD Active CELEXA 20 MG ORAL TABLET 1 tablet by mouth daily 09/26 CITALOPRAM HYDROBROMIDE 74112291816 No Longer Active Checo Conklin MD Active AZITHROMYCIN 250 MG ORAL TABLET 2 po qd x 1 day, then 1 po q d x 4 days AZITHROMYCIN 44425830473 No Longer Active Checo Ortiz MD Active HYDROCODONE-ACETAMINOPHEN 5-325 MG ORAL TABLET 1 po q 6hr PRN Pa in HYDROCODONE-ACETAMINOPHEN 04658473331 No Longer Active Lenora Conklin MD Active PHENAZOPYRIDINE HCL 200 MG ORAL TABLET take 1 tab po TID for bladder pain PHENAZOPYRIDINE HCL 87991259613 No Longer Active Joe Conklin MD Active CIPRO 500 MG ORAL TABLET 1 tablet by mouth twice daily CIPROFLOXACIN HCL 07155444738 No Longer Active Dangelo Rangel MD Active HYDROCODONE-ACETAMINOPHEN 5-325 MG ORAL TABLET 1/2 to 1 po q 4 hours prn cough HYDROCODONE-ACETAMINOPHEN 46538920804 No Longer Activ e Dangelo Rangel MD Active BACTRIM DS 800-160 MG ORAL TABLET 1 po BID x 7 days 29/04/10 SULFAMETHOXAZOLE-TRIMETHOPRIM 68739965476 No Longer Active Checo Conklin MD Active PREDNISONE 20 MG ORAL TABLET 2 tabs daily for 3 days, 1 tab daily for 3 days, 1/2 tab daily for 2 days PREDNISONE 38208124733 No Longer Active Checo Conklin MD Active TRIAMCINOLONE ACETONIDE 0.1 % EXTERNAL OINTMENT Apply to affected areas TID for up to 2 weeks TRIAMCINOLONE ACETONIDE 30379448739 No Longer Active Checo Conklin MD Active CEFDINIR 300 MG ORAL CAPSULE by mouth twice a day 2013 CEFDINIR 27271418810 No Longer Active Dangelo Rangel MD Acti ve BUPROPION HCL ER (SMOKING DET) 150 MG ORAL TABLET EXTE NDED RELEASE 12 HOUR 1 a day for 1 week then 1 twice a day BUPROPION HCL (SMOKING DETER) 50312291871 No Longer Active Checo Conklin MD Active SIMVASTATIN 20 MG ORAL TABLET 1 po qd SIMVASTAT IN 97038594219 Active Checo Conklin MD Active CHANTIX STARTING MONTH KARTHIK 0.5 MG X 11 & 1 MG X 42 ORA L TABLET 0.5mg daily for 3 days, then 0.5mg BID for 4 days, then 1mg BID VARENICLINE TARTRATE 14693481480 No Longer Active Checo Conklin MD Activ e XANAX 0.5 MG ORAL TABLET 1 po BID PRN anxiety A LPRAZOLAM 02406880645 Active Checo Conklin MD Active CONCERTA 18 MG ORAL TABLET EXTENDED RELEASE 1 po q a.m. METHYLPHENIDATE HCL 76483563752 No Longer Active Checo Conklin MD Active AMBIEN 5 MG ORAL TABLET 1 po qHS PRN Insomnia Z OLPIDEM TARTRATE 63802040665 Active Checo Conklin MD Active TRAZODONE HCL 100 MG ORAL TABLET 0.5 to 1 po qHS PRN Insomnia 20 30/07/08 TRAZODONE HCL 07163990754 No Longer Active Checo Conklin MD Active FIORICET 325-50-40 MG TAB 1 tablet by mouth four times daily as needed [id number] 85074583729 No Longer Active Checo Conklin MD Active PHENERGAN CREAM* 25mg applied to wrist q6hr PRN Nausea PHENERGAN CREAM* No Longer Active Checo Conklin MD A ctive FLONASE 50 MCG/ACT NASAL SUSPENSION 1 spray each nostril am and hs FLUTICASONE PROPIONATE 33021979571 No Longer Active Checo Conklin MD Active ANTIPYRINE-BENZOCAINE 5.4-1.4 % OTIC SOLUTION 1-2 drops in affec yohannes ear BENZOCAINE-ANTIPYRINE 61145848940 No Longer Active Checo Conklin MD Active CEFDINIR 300 MG ORAL CAPSULE 1 po bid CEFDINIR 86084952386 No Longer Active Checo Conklin MD Active PREDNISONE 20 MG ORAL TABLET 2 tabs daily for 3 days, 1 tab daily for 3 days, 1/2 tab daily for 2 days PREDNISONE 34005442053 No Longer Active Checo Conklin MD Active AZITHROMYCIN 250 MG ORAL TABLET 2 po qd x 1 day, then 1 po q d x 4 days AZITHROMYCIN 23200184320 No Longer Active Checo Ortiz MD Active PREDNISONE 20 MG ORAL TABLET 2 tabs daily for 3 days, 1 tab daily for 3 days, 1/2 tab daily for 2 days PREDNISONE 80447526302 No Longer Active Checo Conklin MD Active ZITHROMAX Z-KARTHIK 250 MG ORAL TABLET 2 today, then 1 daily for 4 d ays AZITHROMYCIN 88170563346 No Longer Active Paul Hamlin MD Active FOCALIN XR 10 MG ORAL CAPSULE EXTENDED RELEASE 24 HOUR 1 po q a. m. DEXMETHYLPHENIDATE HCL 51932582765 No Longer Active Paul Hamlin MD Active PERCOCET 10-325 MG ORAL TABLET 1 tablet every 6 hours as needed for pain OXYCODONE-ACETAMINOPHEN 98533609428 No Longer Active Paul Hamlin MD Active LORTAB 5-500 MG ORAL TABLET 1/2 to 1 tablet by mouth e very 4 hours as needed for pain HYDROCODONE-ACETAMINOPHEN 43715516070 No Longer Active Checo Conklin MD Active FOCALIN XR 15 MG ORAL CAPSULE EXTENDED RELEASE 24 HOUR 1 po q a. m. DEXMETHYLPHENIDATE HCL 90407221859 No Longer Active Checo Conklin MD Active ZOFRAN ODT 4 MG ORAL TABLET DISINTEGRATING 1 po q6hr PRN Nausea ONDANSETRON 59413640808 No Longer Active Checo Conklin MD Active PERCOCET 5-325 MG ORAL TABLET 1 tablet by mouth every 6 hour s as needed OXYCODONE-ACETAMINOPHEN 31531087990 No Longer Active Cheoc Conklin MD Active PYRIDIUM 200 MG ORAL TABLET take 1 tab po TID prn urinary pain. PHENAZOPYRIDINE HCL 42252791662 No Longer Active Checo Joshua Active FLUCONAZOLE 150 MG ORAL TABLET take 1 tab po qday once FLUCONAZOLE 40712292598 No Longer Active Dangelo Rangel MD Acti ve CIPRO 500 MG ORAL TABLET 1 tablet by mouth twice daily CIPROFLOXACIN HCL 01153013522 No Longer Active Dangelo Rangel MD Active PYRIDIUM 200 MG ORAL TABLET take 1 tab po TID prn urinary pain. PYRIDIUM 200 MG ORAL TABLET 2563947 PHENAZOPYRIDINE HCL Inactive PERCOCET 5-325 MG ORAL TABLET 1 tablet by mouth every 6 hour s as needed PERCOCET 5-325 MG ORAL TABLET 1957546 OXYCODONE-ACETAMINOPHEN Inactive ZOFRAN ODT 4 MG ORAL TABLET DISINTEGRATING 1 po q6hr PRN Nausea ZOFRAN ODT 4 MG ORAL TABLET DISINTEGRATING 761573 ONDAN SETRON Inactive FOCALIN XR 15 MG ORAL CAPSULE EXTENDED RELEASE 24 HOUR 1 po q a. m. FOCALIN XR 15 MG ORAL CAPSULE EXTENDED RELEASE 24 HOUR DEXMETHYLPHENIDATE HCL Inactive LORTAB 5-500 MG ORAL TABLET 1/2 to 1 tablet by mouth e very 4 hours as needed for pain LORTAB 5-500 MG ORAL TABLET 752702 HYDROCODONE-ACETAMINOPHEN Inactive PERCOCET 10-325 MG ORAL TABLET 1 tablet every 6 hours as needed for pain PERCOCET 10-325 MG ORAL TABLET 1243352 OXYCODONE-ACETAMI NOPHEN Inactive FOCALIN XR 10 MG ORAL CAPSULE EXTENDED RELEASE 24 HOUR 1 po q a. m. FOCALIN XR 10 MG ORAL CAPSULE EXTENDED RELEASE 24 HOUR DEXMETHYLPHENIDATE HCL Inactive CEFDINIR 300 MG ORAL CAPSULE 1 po bid CEFDINI R 300 MG ORAL CAPSULE 463284 CEFDINIR Inactive ANTIPYRINE-BENZOCAINE 5.4-1.4 % OTIC SOLUTION 1-2 drops in affec yohannes ear ANTIPYRINE-BENZOCAINE 5.4-1.4 % OTIC SOLUTION 303696 BENZOCAINE-ANTIPYRINE Inactive FLONASE 50 MCG/ACT NASAL SUSPENSION 1 spray each nostril am and hs FLONASE 50 MCG/ACT NASAL SUSPENSION 7772171 FLUTICASONE PROPIONATE I nactive PHENERGAN CREAM* 25mg applied to wrist q6hr PRN Nausea PHENERGAN CREAM* Inactive FIORICET 325-50-40 MG TAB 1 tablet by mouth four times daily as needed FIORICET 325-50-40 MG TAB ACETAMINOPHEN-C AFF-BUTALBITAL Inactive TRAZODONE HCL 100 MG ORAL TABLET 0.5 to 1 po qHS PRN Insomnia 20 30/07/08 TRAZODONE HCL 100 MG ORAL TABLET 131975 TRAZODONE HCL Inactive CONCERTA 18 MG ORAL [...] cough HYDROCODONE-ACETAMINOPHEN 5-325 MG ORAL TABLET 8 24174 HYDROCODONE-ACETAMINOPHEN Inactive PHENAZOPYRIDINE HCL 200 MG ORAL TABLET take 1 tab po TID for bladder pain PHENAZOPYRIDINE HCL 200 MG ORAL TABLET 8977013 PHENAZOPYRIDINE HCL Inactive HYDROCODONE-ACETAMINOPHEN 5-325 MG ORAL TABLET 1 po q 6hr PRN Pa in HYDROCODONE-ACETAMINOPHEN 5-325 MG ORAL TABLET 647881 HYDROCODONE-ACETAMINOPHEN Inactive CELEXA 20 MG ORAL TABLET 1 tablet by mouth daily 09/26 CELEXA 20 MG ORAL TABLET 068756 CITALOPRAM HYDROBROMIDE Inactive REGLAN 10 MG ORAL TABLET 1 po TID PRN Nausea 3 REGLAN 10 MG ORAL TABLET 463929 METOCLOPRAMIDE HCL Inactive LAMISIL 250 MG ORAL TABLET 1 po qd L AMISIL 250 MG ORAL TABLET 070409 TERBINAFINE HCL Inactive DICLOFENAC SODIUM 75 MG ORAL TABLET DELAYED RELEASE 1 tablet by mouth twice daily PRN Knee pain DICLOFENAC SODIUM 75 MG ORAL TABLET DELAYED RELEASE 381326 DICLOFENAC SODIUM Inactive METOCLOPRAMIDE HCL 10 MG ORAL TABLET take one PO tid PRN nausea METOCLOPRAMIDE HCL 10 MG ORAL TABLET 428419 METOCLOPRAM ZACH HCL Inactive TERBINAFINE HCL 250 MG ORAL TABLET take one table PO one time da moises TERBINAFINE HCL 250 MG ORAL TABLET 506809 TERBINAFINE H CL Inactive BUPROPION HCL ER [...] SICKNESS 25 M G ORAL TABLET CHEWABLE 758600 MECLIZINE HCL Inactive SUMATRIPTAN SUCCINATE 100 MG ORAL TABLET Take one PRN for migran e SUMATRIPTAN SUCCINATE 100 MG ORAL TABLET 611497 SUMATRIPTAN SUCCINATE Inactive COMPRO 25 MG RECTAL SUPPOSITORY insert or apply one garza ppository rectally as directed every 12 hours as needed for nausea COMPRO 25 MG RECTAL SUPPOSITORY 787778 PROCHLORPERAZINE Inactive ONDANSETRON 8 MG ORAL TABLET DISINTEGRATING place one tablet on tongue and allow to dissolve every 6 hours as needed for vomitting ONDANSETRON 8 MG ORAL TABLET DISINTEGRATING 706727 ONDANSETRON Inactive HYDROCODONE-ACETAMINOPHEN 5-325 MG ORAL TABLET 0.5 to 1 tab by mouth every 6 hours as needed HYDROCODONE-ACETAMIN OPHEN 5-325 MG ORAL TABLET 464071 HYDROCODONE-ACETAMINOPHEN Inactive BACTRIM DS 800-160 MG ORAL TABLET 1 tab by mouth twice daily 201 11/23/03 BACTRIM DS 800-160 MG ORAL TABLET 556535 TRIMETHOPRIM-SULFAMETHOXAZOLE Inactive DIFLUCAN 150 MG ORAL TABLET 1 tablet by mouth if neede d, hold until symptoms start DIFLUCAN 150 MG ORAL TABLET 208029 FLUCONAZ OLE Inactive IBUPROFEN 800 MG ORAL TABLET 1 tab every 8 hours with food 03/20 IBUPROFEN 800 MG ORAL TABLET 163317 IBUPROFEN Krupa ctive HYDROCODONE-ACETAMINOPHEN 5-325 MG ORAL TABLET 1 tab b y mouth every 6 hours as needed HYDROCODONE-ACETAMINOPHEN 5-325 MG ORAL TABLET 138634 HYDROCODONE-ACETAMINOPHEN Inactive BACTROBAN 2 % EXTERNAL CREAM Apply to affected area BID for up to 10 days BACTROBAN 2 % EXTERNAL CREAM 453446 MUPIROCIN CA LCIUM Inactive MAGNESIUM CITRATE 1.745 GM/30ML ORAL SOLUTION 150ml po BID P RN Constipation MAGNESIUM CITRATE 1.745 GM/30ML ORAL SOLUTION 10 86831 MAGNESIUM CITRATE Inactive DIFLUCAN 150 MG ORAL TABLET 1 tablet by mouth qod 2015 DIFLUCAN 150 MG ORAL TABLET 669316 FLUCONAZOLE Inactive BACTRIM DS 800-160 MG ORAL TABLET 1 tab by mouth twice daily 201 12/19/26 BACTRIM DS 800-160 MG ORAL TABLET 419456 TRIMETHOPRIM-SULFAMETHOXAZOLE Inactive CLARITIN 10 MG ORAL TABLET 1 tablet by mouth daily as needed for allergies CLARITIN 10 MG ORAL TABLET 863096 LORATADINE I nactive FLUTICASONE PROPIONATE 50 MCG/ACT NASAL SUSPENSION 2 s prays/nostril qd PRN Congestion/Allergies FLUTICASONE PROPION ATE 50 MCG/ACT NASAL SUSPENSION 3551489 FLUTICASONE PROPIONATE Inactive CIPRO 500 MG ORAL TABLET 1 tablet by mouth twice daily CIPRO 500 MG ORAL TABLET 634401 CIPROFLOXACIN HCL Inactive FLUCONAZOLE 150 MG ORAL TABLET take 1 tab po qday once FLUCONAZOLE 150 MG ORAL TABLET 183581 FLUCONAZOLE Inactive ZITHROMAX Z-KARTHIK 250 MG ORAL TABLET 2 today, then 1 daily for 4 d ays ZITHROMAX Z-KARTHIK 250 MG ORAL TABLET 254773 AZITHROMYCIN Inactive PREDNISONE 20 MG ORAL TABLET 2 tabs daily for 3 days, 1 tab daily for 3 days, 1/2 tab daily for 2 days PREDNISONE 20 MG ORAL T ABLET 972376 PREDNISONE Inactive AZITHROMYCIN 250 MG ORAL TABLET 2 po qd x 1 day, then 1 po q d x 4 days AZITHROMYCIN 250 MG ORAL TABLET 761117 AZITHROMY SPARKLE Inactive PREDNISONE 20 MG ORAL TABLET 2 tabs daily for 3 days, 1 tab daily for 3 days, 1/2 tab daily for 2 days PREDNISONE 20 MG ORAL TABLET 407444 PREDNISONE Inactive CEFDINIR 300 MG ORAL CAPSULE by mouth twice a day 2013 CEFDINIR 300 MG ORAL CAPSULE 984389 CEFDINIR Inactive TRIAMCINOLONE ACETONIDE 0.1 % EXTERNAL OINTMENT Apply to affected areas TID for up to 2 weeks TRIAMCINOLONE ACETON ZACH 0.1 % EXTERNAL OINTMENT 8666070 TRIAMCINOLONE ACETONIDE Inactive PREDNISONE 20 MG ORAL TABLET 2 tabs daily for 3 days, 1 tab daily for 3 days, 1/2 tab daily for 2 days PREDNISONE 20 MG ORAL T ABLET 837934 PREDNISONE Inactive BACTRIM DS 800-160 MG ORAL TABLET 1 po BID x 7 days 29/04/10 BACTRIM DS 800-160 MG ORAL TABLET 190038 SULFAMETHOXAZOLE-TRIMETHOP RIM Inactive CIPRO 500 MG ORAL TABLET 1 tablet by mouth twice daily CIPRO 500 MG ORAL TABLET 606030 CIPROFLOXACIN HCL Inactive AZITHROMYCIN 250 MG ORAL TABLET 2 po qd x 1 day, then 1 po q d x 4 days AZITHROMYCIN 250 MG ORAL TABLET 555780 AZITHROMY SPARKLE Inactive FLAGYL 500 MG ORAL TABLET 1 tablet by mouth bid 04/13 FLAGYL 500 MG ORAL TABLET 689526 METRONIDAZOLE Inactive AZITHROMYCIN 250 MG ORAL TABLET 2 po qd x 1 day, then 1 po q d x 4 days AZITHROMYCIN 250 MG ORAL TABLET 818785 AZITHROMY SPARKLE Inactive AMOXICILLIN 500 MG ORAL CAPSULE 2 po BID x 10 days 01/15/27 AMOXICILLIN 500 MG ORAL CAPSULE 884447 AMOXICILLIN Inactive AMOXICILLIN 500 MG ORAL CAPSULE 2 po BID x 14 days for H. Pylori AMOXICILLIN 500 MG ORAL CAPSULE 960512 AMOXICILLIN Inactive CLARITHROMYCIN 500 MG ORAL TABLET 1 tab po BID x 14 days CLARITHROMYCIN 500 MG ORAL TABLET 082227 CLARITHROMYCIN Inacti ve FLAGYL 500 MG ORAL TABLET 1 tablet by mouth bid 08/29 FLAGYL 500 MG ORAL TABLET 721418 METRONIDAZOLE Inactive PROTONIX 40 MG ORAL TABLET DELAYED RELEASE 1 pill by m outh daily, for acid reflux PROTONIX 40 MG ORAL TABLET DELAYED RELEAS E 417059 PANTOPRAZOLE SODIUM Inactive Immunizations Vaccine Administration Date [...] PANEL - Chemistry cholesterol, serum 192 mg/dL [phone]/02/20 HDL cholesterol, serum 31 mg/dL > OR [...] 11 .0-15.0 platelet count 218 THOUSAND/UL 10*3/mm3 759-524 2527/02/20 mean platelet volume 9.7 fL 7.5-12.5 Lab Report: Comp. Metabolic Panel, Eryth rocyte Sed Rate, UADIP W/MICRO, ... - Chemistry protein, total urine random Negative mg/dL Negative sodium, serum 139 mmol/L 533-461 4088/11/28 carbon dioxide, venous blood 26.0 mmol/L 21.0-32 [...] Negative Encounters Code Encounter Date Provider Facility CPT-86544 Level 3 Est. Patient 11:24:55 SPORTS DIRECTOR Efren almendarez [facility] CPT-38291 Level 3 Est. Patient 13:05:44 CDT Paul Hamlin MD [facility]-59101 Level 3 Est. Patient 11:29:55 CDT Checo Conklin MD [facility] CPT-88651 Level 4 Est. Patient 11:08:12 SPORTS DIRECTOR Checo Conklin MD [facility] CPT-83885 Level 4 Est. Patient 16:06:48 SPORTS DIRECTOR Checo Conklin MD [facility]-68631 Level 3 Est. Patient 09:11:49 CDT Efren almendarez [facility] CPT-75878 Level 2 Est. Patient 19:53:27 CDT Tanner hill MD [facility]-28935 Level 3 Est. Patient 09:15:34 CDT Efren almendarez [facility] CPT-79039 Level 3 Est. Patient 11:28:51 SPORTS DIRECTOR Efren almendarez [facility]-70181 Level 4 Est. Patient 13:55:46 SPORTS DIRECTOR Checo Conklin MD [facility] CPT-92951 Level 4 Est. Patient 17:10:53 CDT Checo Conklin MD [facility] CPT-49207 Level 3 Est. Patient 15:56:22 CDT Checo Conklin MD [facility] CPT-09370 Level 3 Est. Patient 15:29:07 CDT Checo Conklin MD [facility] CPT-38833 Level 3 Est. Patient 14:38:41 CDT Checo Conklin MD [facility] CPT-93394 Level 3 Est. Patient 15:22:03 SPORTS DIRECTOR Thomas reynolds DO [facility] CPT-80613 Level 3 Est. Patient 13:34:17 SPORTS DIRECTOR Checo Conklin MD [facility] CPT-49527 Level 3 Est. Patient 12:29:32 CDT Dangelo arroyo MD [facility] CPT-61704 Level 3 Est. Patient 16:53:02 CDT Checo Conklin MD [facility] CPT-15542 Level 3 Est. Patient 16:37:13 CDT Checo Conklin MD [facility] CPT-17819 Level 3 Est. Patient 16:16:59 CDT Paul Hamlin MD [facility] CPT-91332 Level 3 Est. Patient 14:20:13 CDT Dangelo arroyo MD [facility] CPT-38929 Level 4 Est. Patient 11:29:33 CDT Checo Conklin MD [facility] CPT-92950 Level 3 Est. Patient 17:08:31 CDT Checo Conklin MD [facility] CPT-46019 Level 3 Est. Patient 16:50:42 SPORTS DIRECTOR Checo Conklin MD [facility] CPT-50749 Level 4 Est. Patient 09:26:08 SPORTS DIRECTOR Checo Conklin MD [facility] CPT-32399 Level 3 Est. Patient 11:37:10 CDT Checo Conklin MD [facility] CPT-78113 Level 4 Est. Patient 14:07:38 CDT Checo Conklin MD [facility] CPT-14708 Level 3 Est. Patient 09:54:41 CDT Checo Conklin MD [facility] CPT-33243 Level 3 Est. Patient 11:10:54 CDT Paul Hamlin MD [facility] CPT-88184 Level 3 Est. Patient 14:16:56 SPORTS DIRECTOR Checo Conklin MD [facility] CPT-56867 Level 3 Est. Patient 11:04:11 SPORTS DIRECTOR Checo Conklin MD [facility] CPT-71277 Level 3 Est. Patient 17:09:26 CDT Dangelo arroyo MD [facility] CPT-66399 Level 3 Est. Patient 16:54:37 CDT Checo Conklin MD [facility] Procedures Code Procedure Name Date Entry Date Standard Desc ription CPT-59620 Abd compl w upright - XRAY USE ONLY 1 1:36:54 SPORTS DIRECTOR CPT-36814 UA w micro - LAB USE ONLY 17:06:46 CDT 2015 CPT-95173 BHCG Qual - LAB USE ONLY 17:06:46 CDT 05/06 CPT-46247 CMP - LAB USE ONLY 17:06:46 CDT CPT-55884 CBC with Diff - LAB USE ONLY 17:06:45 CDT 2 CPT-69907 Venipuncture Draw Fee 17:06:45 CDT CPT-LR Lesion Removal 19:53:27 CDT CPT-OV Office Visit 11:31:28 CDT CPT-85272 Tubersol 09:39:29 CDT CPT-J2550 Phenergan 25 mg (Promethazine) 13:59:02 SPORTS DIRECTOR CPT-J1885 Toradol 60 mg (Ketorolac) 13:59:02 SPORTS DIRECTOR 2012
--- OUTSIDE RECORDS SUMMARY | 2019-09-29 01:38 | XMS REPORT | Clinical Summary ---
Author Author Admin, Bethany Ayala [facility] Address Unknown Phone Unavailable Allergies, Adverse [...] vulvovaginitis, unspecified Pharyngitis 462 Active Jillina Frazell SLICE CUTTING MACHINE OPERATOR HELPER Acute pharyngitis Cough 786.2 Active Jillina Frasandra SLICE CUTTING MACHINE OPERATOR HELPER Cough Pedal edema 782.3 Active Jillina Frazell SLICE CUTTING MACHINE OPERATOR HELPER Edema NEOPLASM OF UNCERTAIN BEHAVIOR OF SKIN [...] Inactive Checo Conklin MD PHARYNGITIS ICD-462 Inactive hCeco Conklin MD OTITIS MEDIA-RIGHT ICD-382.9 Inactive Checo Conklin MD Onychomycosis, toenails ICD-110.1 Inactive Aracelis Conklin MD Hypoglycemia, unspecified ICD-251.2 Inactive Checo Conklin MD Insomnia ICD-780.52 Inactive Checo Joshua Breast mass, right ICD-611.72 Inactive Checo Conklin MD Mastalgia ICD-611.71 Inactive Checo Joshua Sinusitis ICD-461.9 Inactive Checo Conklin MD Insect bite ICD-919.4 Inactive Cheoc Conklin MD Carbuncle/furuncle NOS ICD-680.9 Inactive Hilaria [...] tab by mouth twice daily 2 TRIMETHOPRIM-SULFAMETHOXAZOLE 39200657116 No Longer Active Tanner Carrillo MD Active DIFLUCAN 150 MG TAB 1 tablet by mouth qod FLUCO NAZOLE 70515251022 No Longer Active Efren Medel APRN Active CLARITIN 10 MG TAB 1 tablet by mouth daily as needed for allergies LORATADINE 05178950690 Active Efren Medel SLICE CUTTING MACHINE OPERATOR HELPER Active AZITHROMYCIN 250 MG TABS 2 po qd x 1 day, then 1 po qd x 4 days AZITHROMYCIN 44641014303 No Longer Active Jillina Lizy RIDDLEN Active FLAGYL 500 MG TAB 1 tablet by mouth bid METRONI DAZOLE 23235684042 No Longer Active Checo Conklin MD Active FOCALIN XR 10 MG ORAL [id number] 1 po q a.m. DEX METHYLPHENIDATE HCL 29713703624 Active Checo Conklin MD Active MAGNESIUM CITRATE 1.745 GM/30ML ORAL SOLN 150ml po BID PRN C onstipation MAGNESIUM CITRATE 98666317639 No Longer Active hCeco Conklin MD Active BACTROBAN 2 % CREAM Apply to affected area BID for up to 10 days MUPIROCIN CALCIUM 78983725096 No Longer Active Checo Conklin MD Active HYDROCODONE-ACETAMINOPHEN 5-325 MG TABS 1 tab by mouth every 6 hours as needed HYDROCODONE-ACETAMINOPHEN 83514687044 No Longer Activ e Checo Conklin MD Active IBUPROFEN 800 MG TABS 1 tab every 8 hours with food 20 31/03/21 IBUPROFEN 69711576482 No Longer Active Checo Conklin MD Activ e DIFLUCAN 150 MG TAB 1 tablet by mouth if needed, hold until symptoms start FLUCONAZOLE 47651911626 No Longer Active Checo Ortiz MD Active BACTRIM DS 800-160 MG TAB 1 tab by mouth twice daily 2 TRIMETHOPRIM-SULFAMETHOXAZOLE 91642368478 No Longer Active Corry leong LPN Active MIRALAX PACK 1 po qd PRN Constipation POLYETHYL JOEL GLYCOL 3350 04353453569 Active Checo Conklin MD Active HYDROCODONE-ACETAMINOPHEN 5-325 MG TABS 0.5 to 1 tab b y mouth every 6 hours as needed HYDROCODONE-ACETAMINOPHEN 30569036171 No Longer Active Checo Conklin MD Active ONDANSETRON [address] one tablet on tongue and allow to dissolve every 6 hours as needed for vomitting ONDANSETRO N 49715727764 No Longer Active Checo Conklin MD Active COMPRO 25 MG RECTAL SUPP insert or apply one supposit ory rectally as directed every 12 hours as needed for nausea PROCHLORPERA ZINE 15234262258 No Longer Active Checo Conklin MD Active SUMATRIPTAN SUCCINATE 100 MG ORAL TABS Take one PRN for migrane SUMATRIPTAN SUCCINATE 00916920606 No Longer Active Checo Conklin MD Active TRAVEL SICKNESS 25 MG ORAL CHEW chew and swallow one t ablet every 6 hours as needed MECLIZINE HCL 14630806374 No Longer Active Joe Conklin MD Active BUPROPION HCL ER (SR) 100 MG ORAL [id number] take one t ablet by mouth one time daily for one week then take 1 two times daily BUPROPION HCL 65709766893 No Longer Active Checo Conklin MD Activ e TERBINAFINE HCL 250 MG ORAL TABS take one table PO one time abran y TERBINAFINE HCL 03085676406 No Longer Active Checo Conklin MD Active METOCLOPRAMIDE HCL 10 MG ORAL TABS take one PO tid PRN nausea 20 29/12/14 METOCLOPRAMIDE HCL 66529074946 No Longer Active Checo Conklin MD Active DICLOFENAC SODIUM 75 MG TBEC 1 tablet by mouth twice daily P RN Knee pain DICLOFENAC SODIUM 83506230991 No Longer Active Checo Conklin MD Active LAMISIL 250 MG TAB 1 po qd TERBINAFINE HCL 548 64516454 No Longer Active Checo Conklin MD Active REGLAN 10 MG TAB 1 po TID PRN Nausea METOCLOPRA MIDE HCL 69360460164 No Longer Active Checo Conklin MD Active CELEXA 20 MG TABS 1 tablet by mouth daily CITALOPRAM HYDROBROMIDE 41869621751 No Longer Active Checo Conklin MD Activ e AZITHROMYCIN 250 MG TABS 2 po qd x 1 day, then 1 po qd x 4 days AZITHROMYCIN 87948969998 No Longer Active Checo Conklin MD Active HYDROCODONE-ACETAMINOPHEN 5-325 MG TABS 1 po q 6hr PRN Pain 2013 HYDROCODONE-ACETAMINOPHEN 60422734208 No Longer Active Lenora Conklin MD Active PHENAZOPYRIDINE HCL 200 MG TABS take 1 tab po TID for bladder pa in PHENAZOPYRIDINE HCL 57327601558 No Longer Active Checo Joshua Active CIPRO 500 MG TAB 1 tablet by mouth twice daily CIPROFLOXACIN HCL 64894391486 No Longer Active Dangelo Rangel MD Active HYDROCODONE-ACETAMINOPHEN 5-325 MG TABS 1/2 to 1 po q 4 hour s prn cough HYDROCODONE-ACETAMINOPHEN 25230545679 No Longer Activ e Dangelo Rangel MD Active BACTRIM DS 800-160 MG TABS 1 po BID x 7 days 0 SULFAMETHOXAZOLE-TRIMETHOPRIM 62925610026 No Longer Active Checo Conklin MD Active PREDNISONE 20 MG TAB 2 tabs daily for 3 days, 1 t ab daily for 3 days, 1/2 tab daily for 2 days PREDNISONE 77528101557 No Longer Active Checo Conklin MD Active TRIAMCINOLONE ACETONIDE 0.1 % OINT Apply to affected a reas TID for up to 2 weeks TRIAMCINOLONE ACETONIDE 49565509227 No Longer A ctive Checo Conklin MD Active CEFDINIR 300 MG CAPS by mouth twice a day CEFDI JAZZY 24581865443 No Longer Active Dangelo Rangel MD Active BUPROPION HCL (SMOKING DETER) 150 MG [id number] 1 a day for 1 week then 1 twice a day BUPROPION HCL (SMOKING DETER) 30725152735 No Lo nger Active Checo Conklin MD Active SIMVASTATIN 20 MG TABS 1 po qd SIMVASTATIN 9927998810 5 Active Checo Conklin MD Active CHANTIX STARTING MONTH KARTHIK 0.5 MG X 11 & 1 MG X 42 TAB S 0.5mg daily for 3 days, then 0.5mg BID for 4 days, then 1mg BID VARENICLINE TARTRATE 81597520574 No Longer Active Checo Conklin MD Activ e XANAX 0.5 MG TABS 1 po BID PRN anxiety ALPRAZOLAM 85328192444 Active Checo Conklin MD Active CONCERTA 18 MG CR-TABS 1 po q a.m. METHYLPHENID ATE HCL 76495555270 No Longer Active Checo Conklin MD Active AMBIEN 5 MG TAB 1 po qHS PRN Insomnia ZOLPIDEM TARTRATE 75038529581 Active Checo Conklin MD Active TRAZODONE HCL 100 MG TAB 0.5 to 1 po qHS PRN Insomnia TRAZODONE HCL 57995332532 No Longer Active Checo Conklin MD Acti ve FIORICET 325-50-40 MG TAB 1 tablet by mouth four times daily as needed [id number] 55134973043 No Longer Active Checo Conklin MD Active PHENERGAN CREAM* 25mg applied to wrist q6hr PRN Nausea PHENERGAN CREAM* No Longer Active Checo Conklin MD A ctive FLONASE 50 MCG/ACT SUSP 1 spray each nostril am and hs FLUTICASONE PROPIONATE 17611798183 No Longer Active Checo Conklin MD Activ e ANTIPYRINE-BENZOCAINE 5.4-1.4 % SOLN 1-2 drops in affected ear BENZOCAINE-ANTIPYRINE 69001165969 No Longer Active Checo Conklin MD Active CEFDINIR 300 MG CAPS 1 po bid CEFDINIR 51210229 120 No Longer Active Checo Conklin MD Active PREDNISONE 20 MG TAB 2 tabs daily for 3 days, 1 t ab daily for 3 days, 1/2 tab daily for 2 days PREDNISONE 51262159579 No Longer Active Aracelis Conklin MD Active AZITHROMYCIN 250 MG TABS 2 po qd x 1 day, then 1 po qd x 4 days AZITHROMYCIN 58121917408 No Longer Active Checo Conklin MD Active PREDNISONE 20 MG TAB 2 tabs daily for 3 days, 1 t ab daily for 3 days, 1/2 tab daily for 2 days PREDNISONE 41210415022 No Longer Active Checo Conklin MD Active ZITHROMAX Z-KARTHIK 250 MG TABS 2 today, then 1 daily for 4 days 201 09/18/28 AZITHROMYCIN 73608552264 No Longer Active Paul Hamlin MD Active FOCALIN XR 10 MG [id number] 1 po q a.m. D EXMETHYLPHENIDATE HCL 33542991116 No Longer Active aPul Hamlin MD Activ e PERCOCET 10-325 MG TABS 1 tablet every 6 hours as needed for pain OXYCODONE-ACETAMINOPHEN 67658635423 No Longer Active Paul Hamlin MD Active LORTAB 5 5-500 MG TABS 1/2 to 1 tablet by mouth flaquito ry 4 hours as needed for pain HYDROCODONE-ACETAMINOPHEN 83410713278 No Longer Active Checo Conklin MD Active FOCALIN XR 15 MG [id number] 1 po q a.m. D EXMETHYLPHENIDATE HCL 60713668490 No Longer Active Checo Conklin MD Activ e ZOFRAN ODT 4 MG TBDP 1 po q6hr PRN Nausea ONDAN SETRON 74530744257 No Longer Active Checo Conklin MD Active PERCOCET 5-325 MG TABS 1 tablet by mouth every 6 hours as needed OXYCODONE-ACETAMINOPHEN 22507265602 No Longer Active Checo Conklin MD Active PYRIDIUM 200 MG TABS take 1 tab po TID prn urinary pain. 0 PHENAZOPYRIDINE HCL 52311320351 No Longer Active Checo Conklin MD Active FLUCONAZOLE 150 MG TABS take 1 tab po qday once 0 04/06 FLUCONAZOLE 62438419578 No Longer Active Dangelo Rangel MD Acti ve CIPRO 500 MG TAB 1 tablet by mouth twice daily CIPROFLOXACIN HCL 97558695587 No Longer Active Dangelo Rangel MD Active PYRIDIUM 200 MG TABS take 1 tab po TID prn urinary pain. 0 PYRIDIUM 200 MG TABS 9456327 PHENAZOPYRIDINE HCL Inactive PERCOCET 5-325 MG TABS 1 tablet by mouth every 6 hours as needed PERCOCET 5-325 MG TABS 0252690 OXYCODONE-ACETAMINOPHEN I nactive ZOFRAN ODT 4 MG TBDP 1 po q6hr PRN Nausea ZOFRAN ODT 4 MG TBDP 539731 ONDANSETRON Inactive FOCALIN XR 15 MG [id number] 1 po q a.m. F OCALIN XR 15 MG [id number] DEXMETHYLPHENIDATE HCL Inactive LORTAB 5 5-500 MG TABS 1/2 to 1 tablet by mouth flaquito ry 4 hours as needed for pain LORTAB 5 5-500 MG TABS HYDROCODONE-A CETAMINOPHEN Inactive PERCOCET 10-325 MG TABS 1 tablet every 6 hours as needed for pain PERCOCET 10-325 MG TABS 2633484 OXYCODONE-ACETAMINOPHEN Inactive FOCALIN XR 10 MG [id number] 1 po q a.m. F OCALIN XR 10 MG [id number] DEXMETHYLPHENIDATE HCL Inactive CEFDINIR 300 MG CAPS 1 po bid CEFDINIR 300 MG CAPS 20 0346 CEFDINIR Inactive ANTIPYRINE-BENZOCAINE 5.4-1.4 % SOLN 1-2 drops in affected ear ANTIPYRINE-BENZOCAINE 5.4-1.4 % SOLN 081704 BENZOCAINE-ANTIPYRINE I nactive FLONASE 50 MCG/ACT SUSP [...] PRN Insomnia TRAZODONE HCL 100 MG TAB 699821 TRAZODONE HCL Inactive CONCERTA 18 MG CR-TABS [...] s prn cough HYDROCODONE-ACETAMINOPHEN 5-325 MG TABS 622595 HYDROCODONE-ACETAMINOPHEN Inactive PHENAZOPYRIDINE HCL 200 MG TABS take 1 tab po TID for bladder pa in PHENAZOPYRIDINE HCL 200 MG TABS 0814998 PHENAZOPYRIDINE HCL Inactive HYDROCODONE-ACETAMINOPHEN 5-325 MG TABS 1 po q 6hr PRN Pain 2013 HYDROCODONE-ACETAMINOPHEN 5-325 MG TABS 874214 HYDROCODONE-ACETAMINOPHEN Inactive CELEXA 20 MG TABS 1 tablet by mouth daily CELEXA 20 MG TABS 589449 CITALOPRAM HYDROBROMIDE Inactive REGLAN 10 MG TAB 1 po TID PRN Nausea REGLAN 10 MG TAB 856062 METOCLOPRAMIDE HCL Inactive LAMISIL 250 MG TAB 1 po qd LAMISIL 250 MG TAB 954185 TERBINAFINE HCL Inactive DICLOFENAC SODIUM 75 MG TBEC 1 tablet by mouth twice daily P RN Knee pain DICLOFENAC SODIUM 75 MG TBEC 441109 DICLOFENAC S ODIUM Inactive METOCLOPRAMIDE HCL 10 MG ORAL TABS take one PO tid PRN nausea 20 29/12/14 METOCLOPRAMIDE HCL 10 MG ORAL TABS 692151 METOCLOPRAMID E HCL Inactive TERBINAFINE HCL 250 MG ORAL TABS take one table PO one time abran y TERBINAFINE HCL 250 MG ORAL TABS 526965 TERBINAFINE HCL Inactive BUPROPION HCL ER (SR) 100 MG ORAL [id number] take one t ablet by mouth one time daily for one week then take 1 two times daily BUPROPION HCL ER (SR) 100 MG ORAL [id number] BUPROPION HCL Inacti ve TRAVEL SICKNESS 25 MG ORAL CHEW chew and swallow one t ablet every 6 hours as needed TRAVEL SICKNESS 25 MG ORAL CHEW 577266 MECLIZINE HCL Inactive SUMATRIPTAN SUCCINATE 100 MG ORAL TABS Take one PRN for migrane SUMATRIPTAN SUCCINATE 100 MG ORAL TABS 354172 SUMATRIPT AN SUCCINATE Inactive COMPRO 25 MG RECTAL SUPP insert or apply one supposit ory rectally as directed every 12 hours as needed for nausea COMP RO 25 MG RECTAL SUPP 750764 PROCHLORPERAZINE Inactive ONDANSETRON [address] one tablet on tongue and allow to dissolve every 6 hours as needed for vomitting ON DANSETRON 8 MG ORAL TBDP 050588 ONDANSETRON Inactive HYDROCODONE-ACETAMINOPHEN 5-325 MG TABS 0.5 to 1 tab b y mouth every 6 hours as needed HYDROCODONE-ACETAMINOPHEN 5-325 MG TABS 8 86210 HYDROCODONE-ACETAMINOPHEN Inactive BACTRIM DS 800-160 MG TAB 1 tab by mouth twice daily 2 BACTRIM DS 800-160 MG TAB 19820918 TRIMETHOPRIM-SULFAMETHOXAZOLE Inac tive DIFLUCAN 150 MG TAB 1 tablet by mouth if needed, hold until symptoms start DIFLUCAN 150 MG TAB 514619 FLUCONAZOLE Inactive IBUPROFEN 800 MG TABS 1 tab every 8 hours with food 31/03/21 IBUPROFEN 800 MG TABS 021286 IBUPROFEN Inactive HYDROCODONE-ACETAMINOPHEN 5-325 MG TABS 1 tab by mouth every 6 hours as needed HYDROCODONE-ACETAMINOPHEN 5-325 MG TABS 223948 HYDROCODONE-ACETAMINOPHEN Inactive BACTROBAN 2 % CREAM Apply to affected area BID for up to 10 days BACTROBAN 2 % CREAM 888979 MUPIROCIN CALCIUM Inactive MAGNESIUM CITRATE 1.745 GM/30ML ORAL SOLN 150ml po BID PRN C onstipation MAGNESIUM CITRATE 1.745 GM/30ML ORAL SOLN 082603 0 MAGNESIUM CITRATE Inactive DIFLUCAN 150 MG TAB 1 tablet by mouth qod DIFLUCAN 150 MG TAB 820042 FLUCONAZOLE Inactive BACTRIM DS 800-160 MG TAB 1 tab by mouth twice daily 2 BACTRIM DS 800-160 MG TAB 493712 TRIMETHOPRIM-SULFAMETHOXAZOLE Inac tive CIPRO 500 MG TAB 1 tablet by mouth twice daily CIPRO 500 MG TAB 881834 CIPROFLOXACIN HCL Inactive FLUCONAZOLE 150 MG TABS take 1 tab po qday once 04/06 FLUCONAZOLE 150 MG TABS 844680 FLUCONAZOLE Inactive ZITHROMAX Z-KARTHIK 250 MG TABS 2 today, then 1 daily for 4 days 201 09/18/28 ZITHROMAX Z-KARTHIK 250 MG TABS 6298876 AZITHROMYCIN Inac tive PREDNISONE 20 MG TAB 2 tabs daily for 3 days, 1 t ab daily for 3 days, 1/2 tab daily for 2 days PREDNISONE 20 MG TAB 108910 PREDNISON E Inactive AZITHROMYCIN 250 MG TABS 2 po qd x 1 day, then 1 po qd x 4 days AZITHROMYCIN 250 MG TABS 2870373 AZITHROMYCIN Inactiv e PREDNISONE 20 MG TAB 2 tabs daily for 3 days, 1 t ab daily for 3 days, 1/2 tab daily for 2 days PREDNISONE 20 MG TAB 598629 PREDNISON E Inactive CEFDINIR 300 MG CAPS by mouth twice a day CEFDINIR 300 MG CAPS 978328 CEFDINIR Inactive TRIAMCINOLONE ACETONIDE 0.1 % OINT Apply to affected a reas TID for up to 2 weeks TRIAMCINOLONE ACETONIDE 0.1 % OINT 875369 6 TRIAMCINOLONE ACETONIDE Inactive PREDNISONE 20 MG TAB 2 tabs daily for 3 days, 1 t ab daily for 3 days, 1/2 tab daily for 2 days PREDNISONE 20 MG TAB 089343 PREDNISON E Inactive BACTRIM DS 800-160 MG TABS 1 po BID x 7 days 0 BACTRIM DS 800-160 MG TABS 524001 SULFAMETHOXAZOLE-TRIMETHOPRIM Inactive CIPRO 500 MG TAB 1 tablet by mouth twice daily CIPRO 500 MG TAB 693954 CIPROFLOXACIN HCL Inactive AZITHROMYCIN 250 MG TABS 2 po qd x 1 day, then 1 po qd x 4 days AZITHROMYCIN 250 MG TABS 1885866 AZITHROMYCIN Inactiv e FLAGYL 500 MG TAB 1 tablet by mouth bid FLAGYL 500 MG TAB 774502 METRONIDAZOLE Inactive AZITHROMYCIN 250 MG TABS 2 po qd x 1 day, then 1 po qd x 4 days AZITHROMYCIN 250 MG TABS 9777571 AZITHROMYCIN Inactiv e Immunizations Vaccine Administration Date [...] - 3141-9 133 [lb_av] Weigh t Measured Diagnostic Results Date [...] ... - Chemistry sodium, serum 141 mmol/L 952-143 4740/01/26 carbon dioxide, venous blood 30.0 mmol/L 21.0-32 .0 potassium, serum 4.0 mmol/L 3.5-5.2 chloride, serum 105 mmol/L 98-107 blood glucose 85 mg/dL 65-110 urea nitrogen, blood 9 mg/dL 7-18 creatinine, serum 0.66 mg/dL 0.55-1.30 alanine aminotransferase (SGPT), serum 31 U/L 12-78 aspartate aminotransferase (SGOT), serum 21 U/L 15-37 calcium, serum 8.2 mg/dL 8.5-10.1 bilirubin, serum, total 1.10 mg/dL 0.00-1.00 cholesterol, serum 178 mg/dL 619-079 3560/01/26 triglyceride, serum, fasting 149 mg/dL 30-200 HDL [...] ... - Chemistry sodium, serum 137 mmol/L 200-884 0160/05/27 carbon dioxide, venous blood 29.1 mmol/L 21.0-32 [...] 5.0-8.5 Encounters Code Encounter Date Provider Facility CPT-86737 Level 2 Est. Patient 19:53:27 CDT Tanner hill MD [facility] CPT-64958 Level 3 Est. Patient 09:15:34 CDT Efren almendarez [facility] CPT-10680 Level 3 Est. Patient 11:28:51 TRANSMITTER ENGINEER Efren almendarez [facility] CPT-89508 Level 4 Est. Patient 13:55:46 TRANSMITTER ENGINEER Checo Conklin MD [facility] CPT-82471 Level 4 Est. Patient 17:10:53 CDT Checo Conklin MD [facility] CPT-94509 Level 3 Est. Patient 15:56:22 CDT Checo Conklin MD [facility] CPT-77424 Level 3 Est. Patient 15:29:07 CDT Checo Conklin MD [facility] CPT-48693 Level 3 Est. Patient 14:38:41 CDT Checo Conklin MD [facility] CPT-29550 Level 3 Est. Patient 15:22:03 TRANSMITTER ENGINEER Thomas reynolds DO [facility] CPT-58202 Level 3 Est. Patient 13:34:17 TRANSMITTER ENGINEER Checo Conklin MD [facility] CPT-65661 Level 3 Est. Patient 12:29:32 CDT Dangelo arroyo MD [facility] CPT-27054 Level 3 Est. Patient 16:53:02 CDT Checo Conklin MD [facility] CPT-38786 Level 3 Est. Patient 16:37:13 CDT Checo Conklin MD [facility] CPT-98632 Level 3 Est. Patient 16:16:59 CDT Paul Hamlin MD [facility] CPT-62731 Level 3 Est. Patient 14:20:13 CDT Dangelo arroyo MD [facility] CPT-10267 Level 4 Est. Patient 11:29:33 CDT Checo Conklin MD [facility] CPT-92688 Level 3 Est. Patient 17:08:31 CDT Checo Conklin MD [facility] CPT-98919 Level 3 Est. Patient 16:50:42 TRANSMITTER ENGINEER Checo Conklin MD [facility] CPT-61721 Level 4 Est. Patient 09:26:08 TRANSMITTER ENGINEER Checo Conklin MD [facility] CPT-26145 Level 3 Est. Patient 11:37:10 CDT Checo Conklin MD [facility] CPT-91379 Level 4 Est. Patient 14:07:38 CDT Checo Conklin MD [facility] CPT-99722 Level 3 Est. Patient 09:54:41 CDT Checo Conklin MD [facility] CPT-39434 Level 3 Est. Patient 11:10:54 CDT Paul Hamlin MD [facility] CPT-71216 Level 3 Est. Patient 14:16:56 TRANSMITTER ENGINEER Checo Conklin MD [facility] CPT-66317 Level 3 Est. Patient 11:04:11 TRANSMITTER ENGINEER Checo Conklin MD [facility] CPT-00228 Level 3 Est. Patient 17:09:26 CDT Dangelo arroyo MD [facility] CPT-40486 Level 3 Est. Patient 16:54:37 CDT Checo Conklin MD [facility] Procedures Code Procedure Name Date Entry Date Standard Desc ription CPT-LR Lesion Removal 19:53:27 CDT CPT-OV Office Visit 11:31:28 CDT CPT-49625 Tubersol 09:39:29 CDT CPT-J2550 Phenergan 25 mg (Promethazine) 13:59:02 TRANSMITTER ENGINEER CPT-J1885 Toradol 60 mg (Ketorolac) 13:59:02 TRANSMITTER ENGINEER 2012
--- OUTSIDE RECORDS SUMMARY | 2019-09-29 01:38 | XMS REPORT | Clinical Summary ---
Author Author Admin, Bethany Ayala LucidEra Address Unknown Phone Unavailable Allergies, Adverse Reactions, [...] Conklin MD Hypoglycemia, unspecified Insomnia 780.52 Resolved hCeco Conklin MD Insomnia, unspecified Hyperlipidemia 272.4 Active [...] TABS 1.5 po qd PAROX ETINE HCL 16218897405 Active [place] Kerns Active FLUTICASONE PROPIONATE 50 MCG/ACT NASAL SUSP 2 sprays/ nostril qd PRN Congestion/Allergies FLUTICASONE PROPIONATE 4009879175 5 No Longer Active Checo Conklin MD Active AMOXICILLIN 500 MG ORAL CAPS 2 po BID x 10 days 09/12 AMOXICILLIN 45571979787 No Longer Active Checo Conklin MD Activ e MIRALAX ORAL POWD 8.5 to 17g po qd PRN Constipation POLYETHYLENE GLYCOL 3350 79696866287 Active Checo Conklin MD Active CLARITIN 10 MG TAB 1 tablet by mouth daily as needed for allergi es LORATADINE 23457320826 No Longer Active Checo Conklin MD Active BACTRIM DS 800-160 MG TAB 1 tab by mouth twice daily 2 TRIMETHOPRIM-SULFAMETHOXAZOLE 78832839063 No Longer Active Tanner Carrillo MD Active DIFLUCAN 150 MG TAB 1 tablet by mouth qod FLUCO NAZOLE 56307206157 No Longer Active Efren Medel APRN Active AZITHROMYCIN 250 MG TABS 2 po qd x 1 day, then 1 po qd x 4 days AZITHROMYCIN 45489130864 No Longer Active Efren Medel APRN Active FLAGYL 500 MG TAB 1 tablet by mouth bid METRONI DAZOLE 28995103155 No Longer Active Checo Conklin MD Active FOCALIN XR 10 MG ORAL [id number] 1 po q a.m. DEX METHYLPHENIDATE HCL 94431359356 Active Checo Conklin MD Active MAGNESIUM CITRATE 1.745 GM/30ML ORAL SOLN 150ml po BID PRN C onstipation MAGNESIUM CITRATE 95613071099 No Longer Active Checo Conklin MD Active BACTROBAN 2 % CREAM Apply to affected area BID for up to 10 days MUPIROCIN CALCIUM 12384237980 No Longer Active Checo Conklin MD Active HYDROCODONE-ACETAMINOPHEN 5-325 MG TABS 1 tab by mouth every 6 hours as needed HYDROCODONE-ACETAMINOPHEN 01249957270 No Longer Activ e Checo Conklin MD Active IBUPROFEN 800 MG TABS 1 tab every 8 hours with food 20 31/03/21 IBUPROFEN 85796169808 No Longer Active Checo Conklin MD Activ e DIFLUCAN 150 MG TAB 1 tablet by mouth if needed, hold until symptoms start FLUCONAZOLE 75979220171 No Longer Active Checo Ortiz MD Active BACTRIM DS 800-160 MG TAB 1 tab by mouth twice daily 2 TRIMETHOPRIM-SULFAMETHOXAZOLE 30647325135 No Longer Active Corry leong LPN Active HYDROCODONE-ACETAMINOPHEN 5-325 MG TABS 0.5 to 1 tab b y mouth every 6 hours as needed HYDROCODONE-ACETAMINOPHEN 67489502406 No Longer Active Checo Conklin MD Active ONDANSETRON [address] one tablet on tongue and allow to dissolve every 6 hours as needed for vomitting ONDANSETRO N 75520290815 No Longer Active Checo Conklin MD Active COMPRO 25 MG RECTAL SUPP insert or apply one supposit ory rectally as directed every 12 hours as needed for nausea PROCHLORPERA ZINE 74889725223 No Longer Active Checo Conklin MD Active SUMATRIPTAN SUCCINATE 100 MG ORAL TABS Take one PRN for migrane SUMATRIPTAN SUCCINATE 25988532624 No Longer Active Checo Conklin MD Active TRAVEL SICKNESS 25 MG ORAL CHEW chew and swallow one t ablet every 6 hours as needed MECLIZINE HCL 41841220979 No Longer Active Joe Conklin MD Active BUPROPION HCL ER (SR) 100 MG ORAL [id number] take one t ablet by mouth one time daily for one week then take 1 two times daily BUPROPION HCL 37114540683 No Longer Active Checo Conklin MD Activ e TERBINAFINE HCL 250 MG ORAL TABS take one table PO one time abran y TERBINAFINE HCL 95231637135 No Longer Active Checo Conklin MD Active METOCLOPRAMIDE HCL 10 MG ORAL TABS take one PO tid PRN nausea 20 29/12/14 METOCLOPRAMIDE HCL 14982874379 No Longer Active Checo Conklin MD Active DICLOFENAC SODIUM 75 MG TBEC 1 tablet by mouth twice daily P RN Knee pain DICLOFENAC SODIUM 00547159403 No Longer Active Checo Conklin MD Active LAMISIL 250 MG TAB 1 po qd TERBINAFINE HCL 548 48157278 No Longer Active Checo Conklin MD Active REGLAN 10 MG TAB 1 po TID PRN Nausea METOCLOPRA MIDE HCL 81441736176 No Longer Active Checo Conklin MD Active CELEXA 20 MG TABS 1 tablet by mouth daily CITALOPRAM HYDROBROMIDE 31878540270 No Longer Active Checo Conklin MD Activ e AZITHROMYCIN 250 MG TABS 2 po qd x 1 day, then 1 po qd x 4 days AZITHROMYCIN 96725828383 No Longer Active Checo Conklin MD Active HYDROCODONE-ACETAMINOPHEN 5-325 MG TABS 1 po q 6hr PRN Pain 2013 HYDROCODONE-ACETAMINOPHEN 83025024324 No Longer Active Lenora Conklin MD Active PHENAZOPYRIDINE HCL 200 MG TABS take 1 tab po TID for bladder pa in PHENAZOPYRIDINE HCL 14008078500 No Longer Active Checo Joshua Active CIPRO 500 MG TAB 1 tablet by mouth twice daily CIPROFLOXACIN HCL 79843316459 No Longer Active Dangelo Rangel MD Active HYDROCODONE-ACETAMINOPHEN 5-325 MG TABS 1/2 to 1 po q 4 hour s prn cough HYDROCODONE-ACETAMINOPHEN 20408015178 No Longer Activ e Dangelo Rangel MD Active BACTRIM DS 800-160 MG TABS 1 po BID x 7 days 0 SULFAMETHOXAZOLE-TRIMETHOPRIM 08859922989 No Longer Active Checo Conklin MD Active PREDNISONE 20 MG TAB 2 tabs daily for 3 days, 1 t ab daily for 3 days, 1/2 tab daily for 2 days PREDNISONE 95445604796 No Longer Active Checo Conklin MD Active TRIAMCINOLONE ACETONIDE 0.1 % OINT Apply to affected a reas TID for up to 2 weeks TRIAMCINOLONE ACETONIDE 10129286336 No Longer A ctive Checo Conklin MD Active CEFDINIR 300 MG CAPS by mouth twice a day CEFDI JAZZY 51555524635 No Longer Active Dangelo Rangel MD Active BUPROPION HCL (SMOKING DETER) 150 MG [id number] 1 a day for 1 week then 1 twice a day BUPROPION HCL (SMOKING DETER) 86578285588 No Lo nger Active Checo Conklin MD Active SIMVASTATIN 20 MG TABS 1 po qd SIMVASTATIN 5221402151 5 Active Checo Conklin MD Active CHANTIX STARTING MONTH KARTHIK 0.5 MG X 11 & 1 MG X 42 TAB S 0.5mg daily for 3 days, then 0.5mg BID for 4 days, then 1mg BID VARENICLINE TARTRATE 57399913503 No Longer Active Checo Conklin MD Activ e XANAX 0.5 MG TABS 1 po BID PRN anxiety ALPRAZOLAM 21040546728 Active Checo Conklin MD Active CONCERTA 18 MG CR-TABS 1 po q a.m. METHYLPHENID ATE HCL 62443287740 No Longer Active Checo Conklin MD Active AMBIEN 5 MG TAB 1 po qHS PRN Insomnia ZOLPIDEM TARTRATE 29226129579 Active Checo Conklin MD Active TRAZODONE HCL 100 MG TAB 0.5 to 1 po qHS PRN Insomnia TRAZODONE HCL 37033523943 No Longer Active Checo Conklin MD Acti ve FIORICET 325-50-40 MG TAB 1 tablet by mouth four times daily as needed [id number] 99974324634 No Longer Active Checo Conklin MD Active PHENERGAN CREAM* 25mg applied to wrist q6hr PRN Nausea PHENERGAN CREAM* No Longer Active Checo Conklin MD A ctive FLONASE 50 MCG/ACT SUSP 1 spray each nostril am and hs FLUTICASONE PROPIONATE 86632304352 No Longer Active Checo Conklin MD Activ e ANTIPYRINE-BENZOCAINE 5.4-1.4 % SOLN 1-2 drops in affected ear BENZOCAINE-ANTIPYRINE 95052255943 No Longer Active Checo Conklin MD Active CEFDINIR 300 MG CAPS 1 po bid CEFDINIR 84496321 120 No Longer Active Checo Conklin MD Active PREDNISONE 20 MG TAB 2 tabs daily for 3 days, 1 t ab daily for 3 days, 1/2 tab daily for 2 days PREDNISONE 57225088469 No Longer Active Aracelis Conklin MD Active AZITHROMYCIN 250 MG TABS 2 po qd x 1 day, then 1 po qd x 4 days AZITHROMYCIN 96602775025 No Longer Active Checo Conklin MD Active PREDNISONE 20 MG TAB 2 tabs daily for 3 days, 1 t ab daily for 3 days, 1/2 tab daily for 2 days PREDNISONE 22076378719 No Longer Active Checo Conkiln MD Active ZITHROMAX Z-KARTHIK 250 MG TABS 2 today, then 1 daily for 4 days 201 09/18/28 AZITHROMYCIN 44228374854 No Longer Active Paul Hamlin MD Active FOCALIN XR 10 MG [id number] 1 po q a.m. D EXMETHYLPHENIDATE HCL 16953005850 No Longer Active Paul Hamlin MD Activ e PERCOCET 10-325 MG TABS 1 tablet every 6 hours as needed for pain OXYCODONE-ACETAMINOPHEN 24173598468 No Longer Active Paul Hamlin MD Active LORTAB 5 5-500 MG TABS 1/2 to 1 tablet by mouth flaquito ry 4 hours as needed for pain HYDROCODONE-ACETAMINOPHEN 78456027865 No Longer Active Checo Conklin MD Active FOCALIN XR 15 MG [id number] 1 po q a.m. D EXMETHYLPHENIDATE HCL 07331178520 No Longer Active Checo Conklin MD Activ e ZOFRAN ODT 4 MG TBDP 1 po q6hr PRN Nausea ONDAN SETRON 04340804337 No Longer Active Checo Conklin MD Active PERCOCET 5-325 MG TABS 1 tablet by mouth every 6 hours as needed OXYCODONE-ACETAMINOPHEN 08812147826 No Longer Active Checo Conklin MD Active PYRIDIUM 200 MG TABS take 1 tab po TID prn urinary pain. 0 PHENAZOPYRIDINE HCL 03523116110 No Longer Active Checo Conklin MD Active FLUCONAZOLE 150 MG TABS take 1 tab po qday once 04/06 FLUCONAZOLE 14342126808 No Longer Active Dangelo Rangel MD Acti ve CIPRO 500 MG TAB 1 tablet by mouth twice daily CIPROFLOXACIN HCL 14910824499 No Longer Active Dangelo Rangel MD Active PYRIDIUM 200 MG TABS take 1 tab po TID prn urinary pain. 0 PYRIDIUM 200 MG TABS 4752341 PHENAZOPYRIDINE HCL Inactive PERCOCET 5-325 MG TABS 1 tablet by mouth every 6 hours as needed PERCOCET 5-325 MG TABS 6060417 OXYCODONE-ACETAMINOPHEN I nactive ZOFRAN ODT 4 MG TBDP 1 po q6hr PRN Nausea ZOFRAN ODT 4 MG TBDP 957032 ONDANSETRON Inactive FOCALIN XR 15 MG [id number] 1 po q a.m. F OCALIN XR 15 MG [id number] DEXMETHYLPHENIDATE HCL Inactive LORTAB 5 5-500 MG TABS 1/2 to 1 tablet by mouth flaquito ry 4 hours as needed for pain LORTAB 5 5-500 MG TABS HYDROCODONE-A CETAMINOPHEN Inactive PERCOCET 10-325 MG TABS 1 tablet every 6 hours as needed for pain PERCOCET 10-325 MG TABS 5087824 OXYCODONE-ACETAMINOPHEN Inactive FOCALIN XR 10 MG [id number] 1 po q a.m. F OCALIN XR 10 MG [id number] DEXMETHYLPHENIDATE HCL Inactive CEFDINIR 300 MG CAPS 1 po bid CEFDINIR 300 MG CAPS 20 0346 CEFDINIR Inactive ANTIPYRINE-BENZOCAINE 5.4-1.4 % SOLN 1-2 drops in affected ear ANTIPYRINE-BENZOCAINE 5.4-1.4 % SOLN BENZOCAINE-ANTIPYRINE I nactive FLONASE 50 MCG/ACT SUSP 1 spray each nostril am and hs FLONASE 50 MCG/ACT SUSP 5706491 FLUTICASONE PROPIONATE Inactive PHENERGAN CREAM* 25mg applied to wrist q6hr PRN Nausea PHENERGAN CREAM* Inactive FIORICET 325-50-40 MG TAB 1 tablet by mouth four times daily as needed FIORICET 325-50-40 MG TAB ACETAMINOPHEN-C AFF-BUTALBITAL Inactive TRAZODONE HCL 100 MG TAB 0.5 to 1 po qHS PRN Insomnia TRAZODONE HCL 100 MG TAB 771919 TRAZODONE HCL Inactive CONCERTA 18 MG CR-TABS [...] s prn cough HYDROCODONE-ACETAMINOPHEN 5-325 MG TABS 504380 HYDROCODONE-ACETAMINOPHEN Inactive PHENAZOPYRIDINE HCL 200 MG TABS take 1 tab po TID for bladder pa in PHENAZOPYRIDINE HCL 200 MG TABS 0252036 PHENAZOPYRIDINE HCL Inactive HYDROCODONE-ACETAMINOPHEN 5-325 MG TABS 1 po q 6hr PRN Pain 2013 HYDROCODONE-ACETAMINOPHEN 5-325 MG TABS 002937 HYDROCODONE-ACETAMINOPHEN Inactive CELEXA 20 MG TABS 1 tablet by mouth daily CELEXA 20 MG TABS 321118 CITALOPRAM HYDROBROMIDE Inactive REGLAN 10 MG TAB 1 po TID PRN Nausea REGLAN 10 MG TAB 749504 METOCLOPRAMIDE HCL Inactive LAMISIL 250 MG TAB 1 po qd LAMISIL 250 MG TAB 172129 TERBINAFINE HCL Inactive DICLOFENAC SODIUM 75 MG TBEC 1 tablet by mouth twice daily P RN Knee pain DICLOFENAC SODIUM 75 MG TBEC 066354 DICLOFENAC S ODIUM Inactive METOCLOPRAMIDE HCL 10 MG ORAL TABS take one PO tid PRN nausea 20 29/12/14 METOCLOPRAMIDE HCL 10 MG ORAL TABS 587377 METOCLOPRAMID E HCL Inactive TERBINAFINE HCL 250 MG ORAL TABS take one table PO one time abran y TERBINAFINE HCL 250 MG ORAL TABS 703178 TERBINAFINE HCL Inactive BUPROPION HCL ER (SR) 100 MG ORAL [id number] take one t ablet by mouth one time daily for one week then take 1 two times daily BUPROPION HCL ER (SR) 100 MG ORAL [id number] BUPROPION HCL Inacti ve TRAVEL SICKNESS 25 MG ORAL CHEW chew and swallow one t ablet every 6 hours as needed TRAVEL SICKNESS 25 MG ORAL CHEW 270734 MECLIZINE HCL Inactive SUMATRIPTAN SUCCINATE 100 MG ORAL TABS Take one PRN for migrane SUMATRIPTAN SUCCINATE 100 MG ORAL TABS 893599 SUMATRIPT AN SUCCINATE Inactive COMPRO 25 MG RECTAL SUPP insert or apply one supposit ory rectally as directed every 12 hours as needed for nausea COMP RO 25 MG RECTAL SUPP 094027 PROCHLORPERAZINE Inactive ONDANSETRON [address] one tablet on tongue and allow to dissolve every 6 hours as needed for vomitting ON DANSETRON 8 MG ORAL TBDP 128524 ONDANSETRON Inactive HYDROCODONE-ACETAMINOPHEN 5-325 MG TABS 0.5 to 1 tab b y mouth every 6 hours as needed HYDROCODONE-ACETAMINOPHEN 5-325 MG TABS 8 88098 HYDROCODONE-ACETAMINOPHEN Inactive BACTRIM DS 800-160 MG TAB 1 tab by mouth twice daily 2 BACTRIM DS 800-160 MG TAB 546805 TRIMETHOPRIM-SULFAMETHOXAZOLE Inac tive DIFLUCAN 150 MG TAB 1 tablet by mouth if needed, hold until symptoms start DIFLUCAN 150 MG TAB 19760325 FLUCONAZOLE Inactive IBUPROFEN 800 MG TABS 1 tab every 8 hours with food 31/03/21 IBUPROFEN 800 MG TABS 280336 IBUPROFEN Inactive HYDROCODONE-ACETAMINOPHEN 5-325 MG TABS 1 tab by mouth every 6 hours as needed HYDROCODONE-ACETAMINOPHEN 5-325 MG TABS 073228 HYDROCODONE-ACETAMINOPHEN Inactive BACTROBAN 2 % CREAM Apply to affected area BID for up to 10 days BACTROBAN 2 % CREAM 187601 MUPIROCIN CALCIUM Inactive MAGNESIUM CITRATE 1.745 GM/30ML ORAL SOLN 150ml po BID PRN C onstipation MAGNESIUM CITRATE 1.745 GM/30ML ORAL SOLN 364874 0 MAGNESIUM CITRATE Inactive DIFLUCAN 150 MG TAB 1 tablet by mouth qod DIFLUCAN 150 MG TAB 453519 FLUCONAZOLE Inactive BACTRIM DS 800-160 MG TAB 1 tab by mouth twice daily 2 BACTRIM DS 800-160 MG TAB 333134 TRIMETHOPRIM-SULFAMETHOXAZOLE Inac tive CLARITIN 10 MG TAB 1 tablet by mouth daily as needed for allergi es CLARITIN 10 MG TAB 258518 LORATADINE Inactive FLUTICASONE PROPIONATE 50 MCG/ACT NASAL SUSP 2 sprays/ nostril qd PRN Congestion/Allergies FLUTICASONE PROPION ATE 50 MCG/ACT NASAL SUSP 7955609 FLUTICASONE PROPIONATE Inactive CIPRO 500 MG TAB 1 tablet by mouth twice daily CIPRO 500 MG TAB 092213 CIPROFLOXACIN HCL Inactive FLUCONAZOLE 150 MG TABS take 1 tab po qday once 04/06 FLUCONAZOLE 150 MG TABS 134926 FLUCONAZOLE Inactive ZITHROMAX Z-KARTHIK 250 MG TABS 2 today, then 1 daily for 4 days 201 09/18/28 ZITHROMAX Z-KARTHIK 250 MG TABS 9285294 AZITHROMYCIN Inac tive PREDNISONE 20 MG TAB 2 tabs daily for 3 days, 1 t ab daily for 3 days, /2 tab daily for 2 days PREDNISONE 20 MG TAB 656653 PREDNISON E Inactive AZITHROMYCIN 250 MG TABS 2 po qd x 1 day, then 1 po qd x 4 days AZITHROMYCIN 250 MG TABS 3311550 AZITHROMYCIN Inactiv e PREDNISONE 20 MG TAB 2 tabs daily for 3 days, 1 t ab daily for 3 days, 1/2 tab daily for 2 days PREDNISONE 20 MG TAB 228421 PREDNISON E Inactive CEFDINIR 300 MG CAPS by mouth twice a day CEFDINIR 300 MG CAPS 897389 CEFDINIR Inactive TRIAMCINOLONE ACETONIDE 0.1 % OINT Apply to affected a reas TID for up to 2 weeks TRIAMCINOLONE ACETONIDE 0.1 % OINT 330948 6 TRIAMCINOLONE ACETONIDE Inactive PREDNISONE 20 MG TAB 2 tabs daily for 3 days, 1 t ab daily for 3 days, 1/2 tab daily for 2 days PREDNISONE 20 MG TAB 108693 PREDNISON E Inactive BACTRIM DS 800-160 MG TABS 1 po BID x 7 days 0 BACTRIM DS 800-160 MG TABS 145356 SULFAMETHOXAZOLE-TRIMETHOPRIM Inactive CIPRO 500 MG TAB 1 tablet by mouth twice daily CIPRO 500 MG TAB 191039 CIPROFLOXACIN HCL Inactive AZITHROMYCIN 250 MG TABS 2 po qd x 1 day, then 1 po qd x 4 days AZITHROMYCIN 250 MG TABS 9547696 AZITHROMYCIN Inactiv e FLAGYL 500 MG TAB 1 tablet by mouth bid FLAGYL 500 MG TAB 077581 METRONIDAZOLE Inactive AZITHROMYCIN 250 MG TABS 2 po qd x 1 day, then 1 po qd x 4 days AZITHROMYCIN 250 MG TABS 0702117 AZITHROMYCIN Inactiv e AMOXICILLIN 500 MG ORAL CAPS 2 po BID x 10 days 09/12 AMOXICILLIN 500 MG ORAL CAPS 558082 AMOXICILLIN Inactive Immunizations Vaccine Administration Date Value [...] CITY - Chemistry sodium, serum 139 mmol/L 654-914 1612/10/21 carbon dioxide, venous blood 33.5 mmol/L 21.0-32 [...] PANEL - Chemistry cholesterol, serum 192 mg/dL 414-877 2505/02/20 HDL cholesterol, serum 31 mg/dL > OR [...] 11 .0-15.0 platelet count 218 THOUSAND/UL 10*3/mm3 841-039 4093/02/20 mean platelet volume 9.7 fL 7.5-12.5 Lab Report: Chlamydia/GC APTIMA/[id number] - Lab chlamydia DNA probe NOT DETECTED NOT DETECTED Lab Report: Chlamydia/GC APTIMA/[id number] - Microbiology Neisseria gonorrhoeae DNA probe NOT [...] 5.0-8.5 Encounters Code Encounter Date Provider Facility CPT-70788 Level 3 Est. Patient 11:29:55 CDT Checo Conklin MD [facility] CPT-31993 Level 4 Est. Patient 11:08:12 [employer] Checo Conklin MD [facility] CPT-50224 Level 4 Est. Patient 16:06:48 [employer] Checo Conklin MD [facility] CPT-32359 Level 3 Est. Patient 09:11:49 CDT Efren almendarez [facility] CPT-54556 Level 2 Est. Patient 19:53:27 CDT Tanner hill MD [facility] CPT-79128 Level 3 Est. Patient 09:15:34 CDT Efren almendarez [facility] CPT-98747 Level 3 Est. Patient 11:28:51 [employer] Efren almendarez [facility] CPT-90659 Level 4 Est. Patient 13:55:46 [employer] Checo Conklin MD [facility] CPT-07042 Level 4 Est. Patient 17:10:53 CDT Checo Conklin MD [facility] CPT-73708 Level 3 Est. Patient 15:56:22 CDT Checo Conklin MD [facility] CPT-92690 Level 3 Est. Patient 15:29:07 CDT Checo Conklin MD [facility] CPT-54830 Level 3 Est. Patient 14:38:41 CDT Checo Conklin MD [facility] CPT-36187 Level 3 Est. Patient 15:22:03 [employer] Thomas reynolds DO [facility] CPT-18086 Level 3 Est. Patient 13:34:17 [employer] Checo Conklin MD [facility] CPT-00640 Level 3 Est. Patient 12:29:32 CDT Dangelo arroyo MD [facility] CPT-51756 Level 3 Est. Patient 16:53:02 CDT Checo Conklin MD [facility] CPT-68380 Level 3 Est. Patient 16:37:13 CDT Checo Conklin MD [facility] CPT-23830 Level 3 Est. Patient 16:16:59 CDT Paul Hamlin MD [facility] CPT-17727 Level 3 Est. Patient 14:20:13 CDT Dangelo arroyo MD [facility] CPT-22468 Level 4 Est. Patient 11:29:33 CDT Checo Conklin MD [facility] CPT-02577 Level 3 Est. Patient 17:08:31 CDT Checo Conklin MD [facility] CPT-59522 Level 3 Est. Patient 16:50:42 [employer] Checo Conklin MD [facility] CPT-88963 Level 4 Est. Patient 09:26:08 [employer] Checo Conklin MD [facility] CPT-53112 Level 3 Est. Patient 11:37:10 CDT Checo Conklin MD [facility] CPT-52519 Level 4 Est. Patient 14:07:38 CDT Checo Conklin MD [facility] CPT-14467 Level 3 Est. Patient 09:54:41 CDT Cehco Conklin MD [facility] CPT-96771 Level 3 Est. Patient 11:10:54 CDT Paul Hamlin MD [facility] CPT-32156 Level 3 Est. Patient 14:16:56 [employer] Checo Conklin MD [facility] CPT-82159 Level 3 Est. Patient 11:04:11 [employer] Checo Conklin MD [facility] CPT-20645 Level 3 Est. Patient 17:09:26 CDT Dangelo arroyo MD [facility] CPT-90768 Level 3 Est. Patient 16:54:37 CDT Checo Conklin MD [facility] Procedures Code Procedure Name Date Entry Date Standard Desc ription CPT-97566 UA w micro - LAB USE ONLY 17:06:46 CDT 2015 CPT-90788 BHCG Qual - LAB USE ONLY 17:06:46 CDT 05/06 CPT-69356 CMP - LAB USE ONLY 17:06:46 CDT CPT-18450 CBC with Diff - LAB USE ONLY 17:06:45 CDT 2 CPT-87521 Venipuncture Draw Fee 17:06:45 CDT CPT-LR Lesion Removal 19:53:27 CDT CPT-OV Office Visit 11:31:28 CDT CPT-31548 Tubersol 09:39:29 CDT CPT-J2550 Phenergan 25 mg (Promethazine) 13:59:02 [employer] CPT-J1885 Toradol 60 mg (Ketorolac) 13:59:02 F[employer]ING OIL FIL[employer]ER 2012
--- OUTSIDE RECORDS SUMMARY | 2019-09-29 01:39 | XMS REPORT | Clinical Summary ---
Author Author Admin, Bethany Ayala [facility] Address Unknown Phone Unavailable Allergies, Adverse [...] Instructions Start Date Stop Date Generic Name [facility] Status Provider Patient Instruction MAGNESIUM CITRATE 1.745 GM/30ML ORAL SOLN 150ml po BID PRN C onstipation MAGNESIUM CITRATE 68502504140 Active Checo Conklin MD Active MIRALAX PACK 1 po qd PRN Constipation POLYETHYL JOEL GLYCOL 3350 [id number] Active Checo Conklin MD Active HYDROCODONE-ACETAMINOPHEN 5-325 MG TABS 0.5 to 1 tab b y mouth every 6 hours as needed HYDROCODONE-ACETAMINOPHEN 11958447527 No Longer Active Checo Conklin MD Active ONDANSETRON [address] one tablet on tongue and allow to dissolve every 6 hours as needed for vomitting ONDANSETRO N 50915893503 No Longer Active Checo Conklin MD Active COMPRO 25 MG RECTAL SUPP insert or apply one supposit ory rectally as directed every 12 hours as needed for nausea PROCHLORPERA ZINE 76912024867 No Longer Active Checo Conklin MD Active SUMATRIPTAN SUCCINATE 100 MG ORAL TABS Take one PRN for migrane SUMATRIPTAN SUCCINATE 24814695818 No Longer Active Checo Conklin MD Active TRAVEL SICKNESS 25 MG ORAL CHEW chew and swallow one t ablet every 6 hours as needed MECLIZINE HCL 05626706431 No Longer Active Joe Conklin MD Active BUPROPION HCL ER (SR) 100 MG ORAL [id number] take one t ablet by mouth one time daily for one week then take 1 two times daily BUPROPION HCL 15238268649 No Longer Active Checo Conklin MD Activ e TERBINAFINE HCL 250 MG ORAL TABS take one table PO one time abran y TERBINAFINE HCL 29014976056 No Longer Active Checo Conklin MD Active METOCLOPRAMIDE HCL 10 MG ORAL TABS take one PO tid PRN nausea 20 29/12/14 METOCLOPRAMIDE HCL 34545759091 No Longer Active Checo Conklin MD Active DICLOFENAC SODIUM 75 MG TBEC 1 tablet by mouth twice daily P RN Knee pain DICLOFENAC SODIUM 37331396964 No Longer Active Checo Conklin MD Active LAMISIL 250 MG TAB 1 po qd TERBINAFINE HCL 548 80657542 No Longer Active Checo Conklin MD Active REGLAN 10 MG TAB 1 po TID PRN Nausea METOCLOPRA MIDE HCL 93339605284 No Longer Active Checo Conklin MD Active CELEXA 20 MG TABS 1 tablet by mouth daily CITALOPRAM HYDROBROMIDE 21308025355 No Longer Active Checo Conklin MD Activ e AZITHROMYCIN 250 MG TABS 2 po qd x 1 day, then 1 po qd x 4 days AZITHROMYCIN 23919834153 No Longer Active Checo Conklin MD Active HYDROCODONE-ACETAMINOPHEN 5-325 MG TABS 1 po q 6hr PRN Pain 2013 HYDROCODONE-ACETAMINOPHEN 18189420923 No Longer Active Lenora Conklin MD Active PHENAZOPYRIDINE HCL 200 MG TABS take 1 tab po TID for bladder pa in PHENAZOPYRIDINE HCL 74000526611 No Longer Active Checo Joshua Active CIPRO 500 MG TAB 1 tablet by mouth twice daily CIPROFLOXACIN HCL 78953258535 No Longer Active Dangelo Rangel MD Active HYDROCODONE-ACETAMINOPHEN 5-325 MG TABS 1/2 to 1 po q 4 hour s prn cough HYDROCODONE-ACETAMINOPHEN 15765193792 No Longer Activ e Dangelo Rangel MD Active BACTRIM DS 800-160 MG TABS 1 po BID x 7 days 0 SULFAMETHOXAZOLE-TRIMETHOPRIM 95117678272 No Longer Active Checo Conklin MD Active PREDNISONE 20 MG TAB 2 tabs daily for 3 days, 1 t ab daily for 3 days, 1/2 tab daily for 2 days PREDNISONE 58397039649 No Longer Active Checo Conklin MD Active TRIAMCINOLONE ACETONIDE 0.1 % OINT Apply to affected a reas TID for up to 2 weeks TRIAMCINOLONE ACETONIDE 29727275303 No Longer A ctive Checo Conklin MD Active CEFDINIR 300 MG CAPS by mouth twice a day CEFDI JAZZY 38807083293 No Longer Active Dangelo Rangel MD Active BUPROPION HCL (SMOKING DETER) 150 MG [id number] 1 a day for 1 week then 1 twice a day BUPROPION HCL (SMOKING DETER) 87934740897 No Lo nger Active Checo Conklin MD Active SIMVASTATIN 20 MG TABS 1 po qd SIMVASTATIN 2469499268 5 Active Checo Conklin MD Active CHANTIX STARTING MONTH KARTHIK 0.5 MG X 11 & 1 MG X 42 TAB S 0.5mg daily for 3 days, then 0.5mg BID for 4 days, then 1mg BID VARENICLINE TARTRATE 00254719658 No Longer Active Checo Conklin MD Activ e XANAX 0.5 MG TABS 1 po BID PRN anxiety ALPRAZOLAM 96534135054 Active Checo Conklin MD Active CONCERTA 18 MG CR-TABS 1 po q a.m. METHYLPHENID ATE HCL 54862180419 No Longer Active Checo Conklin MD Active AMBIEN 5 MG TAB 1 po qHS PRN Insomnia ZOLPIDEM TARTRATE 57556923478 Active Checo Conklin MD Active TRAZODONE HCL 100 MG TAB 0.5 to 1 po qHS PRN Insomnia TRAZODONE HCL 55451107965 No Longer Active Checo Conklin MD Acti ve FIORICET 325-50-40 MG TAB 1 tablet by mouth four times daily as needed [id number] 34513110073 No Longer Active Checo Conklin MD Active PHENERGAN CREAM* 25mg applied to wrist q6hr PRN Nausea PHENERGAN CREAM* No Longer Active Checo Gonzales ctive FLONASE 50 MCG/ACT SUSP 1 spray each nostril am and hs FLUTICASONE PROPIONATE 81890331142 No Longer Active Checo Conklin MD Activ e ANTIPYRINE-BENZOCAINE 5.4-1.4 % SOLN 1-2 drops in affected ear BENZOCAINE-ANTIPYRINE 70119459612 No Longer Active Checo Conklin MD Active CEFDINIR 300 MG CAPS 1 po bid CEFDINIR 99831164 120 No Longer Active Checo Conklin MD Active PREDNISONE 20 MG TAB 2 tabs daily for 3 days, 1 t ab daily for 3 days, 1/2 tab daily for 2 days PREDNISONE 35923888724 No Longer Active Aracelis Conklin MD Active AZITHROMYCIN 250 MG TABS 2 po qd x 1 day, then 1 po qd x 4 days AZITHROMYCIN 41797779551 No Longer Active Checo Conklin MD Active PREDNISONE 20 MG TAB 2 tabs daily for 3 days, 1 t ab daily for 3 days, 1/2 tab daily for 2 days PREDNISONE 46404013117 No Longer Active Checo Conklin MD Active ZITHROMAX Z-KARTHIK 250 MG TABS 2 today, then 1 daily for 4 days 201 09/18/28 AZITHROMYCIN 71039591223 No Longer Active Paul Hamlin MD Active FOCALIN XR 10 MG [id number] 1 po q a.m. D EXMETHYLPHENIDATE HCL 16383703299 No Longer Active Paul Hmalin MD Activ e PERCOCET 10-325 MG TABS 1 tablet every 6 hours as needed for pain OXYCODONE-ACETAMINOPHEN 49594612118 No Longer Active Paul Hamlin MD Active LORTAB 5 5-500 MG TABS 1/2 to 1 tablet by mouth flaquito ry 4 hours as needed for pain HYDROCODONE-ACETAMINOPHEN 90549953288 No Longer Active Checo Conklin MD Active FOCALIN XR 15 MG [id number] 1 po q a.m. D EXMETHYLPHENIDATE HCL 51245416283 No Longer Active Checo Conklin MD Activ e ZOFRAN ODT 4 MG TBDP 1 po q6hr PRN Nausea ONDAN SETRON 30914027276 No Longer Active Checo Conklin MD Active PERCOCET 5-325 MG TABS 1 tablet by mouth every 6 hours as needed OXYCODONE-ACETAMINOPHEN 90509427053 No Longer Active Checo Conklin MD Active PYRIDIUM 200 MG TABS take 1 tab po TID prn urinary pain. 0 PHENAZOPYRIDINE HCL 78919218229 No Longer Active Checo Conklin MD Active FLUCONAZOLE 150 MG TABS take 1 tab po qday once 04/06 FLUCONAZOLE 29962555653 No Longer Active Dangelo Rangel MD Acti ve CIPRO 500 MG TAB 1 tablet by mouth twice daily CIPROFLOXACIN HCL 93504588676 No Longer Active Dangelo Rangel MD Active PYRIDIUM 200 MG TABS take 1 tab po TID prn urinary pain. 0 PYRIDIUM 200 MG TABS 4932696 PHENAZOPYRIDINE HCL Inactive PERCOCET 5-325 MG TABS 1 tablet by mouth every 6 hours as needed PERCOCET 5-325 MG TABS 3283928 OXYCODONE-ACETAMINOPHEN I nactive ZOFRAN ODT 4 MG TBDP 1 po q6hr PRN Nausea ZOFRAN ODT 4 MG TBDP 672048 ONDANSETRON Inactive FOCALIN XR 15 MG [id number] 1 po q a.m. F OCALIN XR 15 MG [id number] DEXMETHYLPHENIDATE HCL Inactive LORTAB 5 5-500 MG TABS 1/2 to 1 tablet by mouth flaquito ry 4 hours as needed for pain LORTAB 5 5-500 MG TABS HYDROCODONE-A CETAMINOPHEN Inactive PERCOCET 10-325 MG TABS 1 tablet every 6 hours as needed for pain PERCOCET 10-325 MG TABS 3314778 OXYCODONE-ACETAMINOPHEN Inactive FOCALIN XR 10 MG [id number] 1 po q a.m. F OCALIN XR 10 MG [id number] DEXMETHYLPHENIDATE HCL Inactive CEFDINIR 300 MG CAPS 1 po bid CEFDINIR 300 MG CAPS 20 0346 CEFDINIR Inactive ANTIPYRINE-BENZOCAINE 5.4-1.4 % SOLN 1-2 drops in affected ear ANTIPYRINE-BENZOCAINE 5.4-1.4 % SOLN 287788 BENZOCAINE-ANTIPYRINE I nactive FLONASE 50 MCG/ACT SUSP 1 spray each nostril am and hs FLONASE 50 MCG/ACT SUSP 297405 FLUTICASONE PROPIONATE Inactive PHENERGAN CREAM* 25mg applied to wrist q6hr PRN Nausea PHENERGAN CREAM* Inactive FIORICET 325-50-40 MG TAB 1 tablet by mouth four times daily as needed FIORICET 325-50-40 MG TAB ACETAMINOPHEN-C AFF-BUTALBITAL Inactive TRAZODONE HCL 100 MG TAB 0.5 to 1 po qHS PRN Insomnia TRAZODONE HCL 100 MG TAB 632611 TRAZODONE HCL Inactive CONCERTA 18 MG CR-TABS [...] s prn cough HYDROCODONE-ACETAMINOPHEN 5-325 MG TABS 411629 HYDROCODONE-ACETAMINOPHEN Inactive PHENAZOPYRIDINE HCL 200 MG TABS take 1 tab po TID for bladder pa in PHENAZOPYRIDINE HCL 200 MG TABS 9909351 PHENAZOPYRIDINE HCL Inactive HYDROCODONE-ACETAMINOPHEN 5-325 MG TABS 1 po q 6hr PRN Pain 2013 HYDROCODONE-ACETAMINOPHEN 5-325 MG TABS 363244 HYDROCODONE-ACETAMINOPHEN Inactive CELEXA 20 MG TABS 1 tablet by mouth daily CELEXA 20 MG TABS 573336 CITALOPRAM HYDROBROMIDE Inactive REGLAN 10 MG TAB 1 po TID PRN Nausea REGLAN 10 MG TAB 255337 METOCLOPRAMIDE HCL Inactive LAMISIL 250 MG TAB 1 po qd LAMISIL 250 MG TAB 372876 TERBINAFINE HCL Inactive DICLOFENAC SODIUM 75 MG TBEC 1 tablet by mouth twice daily P RN Knee pain DICLOFENAC SODIUM 75 MG TBEC 650627 DICLOFENAC S ODIUM Inactive METOCLOPRAMIDE HCL 10 MG ORAL TABS take one PO tid PRN nausea 20 29/12/14 METOCLOPRAMIDE HCL 10 MG ORAL TABS 829254 METOCLOPRAMID E HCL Inactive TERBINAFINE HCL 250 MG ORAL TABS take one table PO one time abran y TERBINAFINE HCL 250 MG ORAL TABS 889399 TERBINAFINE HCL Inactive BUPROPION HCL ER (SR) 100 MG ORAL [id number] take one t ablet by mouth one time daily for one week then take 1 two times daily BUPROPION HCL ER (SR) 100 MG ORAL [id number] BUPROPION HCL Inacti ve TRAVEL SICKNESS 25 MG ORAL CHEW chew and swallow one t ablet every 6 hours as needed TRAVEL SICKNESS 25 MG ORAL CHEW 525089 MECLIZINE HCL Inactive SUMATRIPTAN SUCCINATE 100 MG ORAL TABS Take one PRN for migrane SUMATRIPTAN SUCCINATE 100 MG ORAL TABS 395692 SUMATRIPT AN SUCCINATE Inactive COMPRO 25 MG RECTAL SUPP insert or apply one supposit ory rectally as directed every 12 hours as needed for nausea COMP RO 25 MG RECTAL SUPP 437886 PROCHLORPERAZINE Inactive ONDANSETRON [address] one tablet on tongue and allow to dissolve every 6 hours as needed for vomitting ON DANSETRON 8 MG ORAL TBDP 288219 ONDANSETRON Inactive HYDROCODONE-ACETAMINOPHEN 5-325 MG TABS 0.5 to 1 tab b y mouth every 6 hours as needed HYDROCODONE-ACETAMINOPHEN 5-325 MG TABS 8 50374 HYDROCODONE-ACETAMINOPHEN Inactive CIPRO 500 MG TAB 1 tablet by mouth twice daily CIPRO 500 MG TAB 393937 CIPROFLOXACIN HCL Inactive FLUCONAZOLE 150 MG TABS take 1 tab po qday once 04/06 FLUCONAZOLE 150 MG TABS 555908 FLUCONAZOLE Inactive ZITHROMAX Z-KARTHIK 250 MG TABS 2 today, then 1 daily for 4 days 201 09/18/28 ZITHROMAX Z-KARTHIK 250 MG TABS 0706529 AZITHROMYCIN Inac tive PREDNISONE 20 MG TAB 2 tabs daily for 3 days, 1 t ab daily for 3 days, 1/2 tab daily for 2 days PREDNISONE 20 MG TAB 232542 PREDNISON E Inactive AZITHROMYCIN 250 MG TABS 2 po qd x 1 day, then 1 po qd x 4 days AZITHROMYCIN 250 MG TABS 6437643 AZITHROMYCIN Inactiv e PREDNISONE 20 MG TAB 2 tabs daily for 3 days, 1 t ab daily for 3 days, 1/2 tab daily for 2 days PREDNISONE 20 MG TAB 515605 PREDNISON E Inactive CEFDINIR 300 MG CAPS by mouth twice a day CEFDINIR 300 MG CAPS 517299 CEFDINIR Inactive TRIAMCINOLONE ACETONIDE 0.1 % OINT Apply to affected a reas TID for up to 2 weeks TRIAMCINOLONE ACETONIDE 0.1 % OINT 672580 6 TRIAMCINOLONE ACETONIDE Inactive PREDNISONE 20 MG TAB 2 tabs daily for 3 days, 1 t ab daily for 3 days, 1/2 tab daily for 2 days PREDNISONE 20 MG TAB 504261 PREDNISON E Inactive BACTRIM DS 800-160 MG TABS 1 po BID x 7 days 0 BACTRIM DS 800-160 MG TABS SULFAMETHOXAZOLE-TRIMETHOPRIM Inactive CIPRO 500 MG TAB 1 tablet by mouth twice daily CIPRO 500 MG TAB 894060 CIPROFLOXACIN HCL Inactive AZITHROMYCIN 250 MG TABS 2 po qd x 1 day, then 1 po qd x 4 days AZITHROMYCIN 250 MG TABS 2724922 AZITHROMYCIN Inactiv e Immunizations Vaccine Administration Date [...] Panel - Chemistry sodium, serum 139 mmol/L 692-996 7457/10/24 potassium, serum 4.1 mmol/L 3.5-5.2 chloride, serum [...] 0.80 mg/dL 0.00-1.00 cholesterol, serum 147 mg/dL 295-768 0398/10/24 triglyceride, serum, fasting 112 mg/dL 30-200 HDL [...] urine, semiquantitative Negative Neg ative appearance, urine red-orange clear Clear urine color Unable to read macroscopic due t o interfering substance Colorless;Lightyellow;Straw;Yellow glucose, urine, semiquantitative Negative Neg ative ketones, urine, by test strip Negative Negati ve bilirubin, urine Negative Negative urine color Yellow Colorless;Lightyellow;St raw;Yellow appearance, urine Clear Clear specific gravity, urine 1.025 1.000-1.030 pH, urine, semiquantitative 7.0 5.0-8.5 Encounters Code Encounter Date Provider Facility CPT-56453 Level 3 Est. Patient 15:56:22 CDT Checo Conklin MD [facility] CPT-77713 Level 3 Est. Patient 15:29:07 CDT Checo Conklin MD [facility] CPT-84759 Level 3 Est. Patient 14:38:41 CDT Checo Conklin MD [facility] CPT-65962 Level 3 Est. Patient 15:22:03 DIRECTOR OF CUSTOMER ACQUISITION Thomas reynolds DO [facility] CPT-14477 Level 3 Est. Patient 13:34:17 DIRECTOR OF CUSTOMER ACQUISITION Checo Conklin MD [facility] CPT-95412 Level 3 Est. Patient 12:29:32 CDT Dangelo arroyo MD [facility] CPT-77249 Level 3 Est. Patient 16:53:02 CDT Checo Conklin MD [facility] CPT-12119 Level 3 Est. Patient 16:37:13 CDT Checo Conklin MD [facility] CPT-48399 Level 3 Est. Patient 16:16:59 CDT Paul Hamlin MD [facility] CPT-87151 Level 3 Est. Patient 14:20:13 CDT Dangelo arroyo MD [facility] CPT-01906 Level 4 Est. Patient 11:29:33 CDT Checo Conklin MD [facility] CPT-84065 Level 3 Est. Patient 17:08:31 CDT Checo Conklin MD [facility] CPT-27413 Level 3 Est. Patient 16:50:42 DIRECTOR OF CUSTOMER ACQUISITION Checo Conklin MD [facility] CPT-82777 Level 4 Est. Patient 09:26:08 DIRECTOR OF CUSTOMER ACQUISITION Checo Conklin MD [facility] CPT-51470 Level 3 Est. Patient 11:37:10 CDT Checo Conklin MD [facility] CPT-65776 Level 4 Est. Patient 14:07:38 CDT Checo Conklin MD [facility] CPT-89455 Level 3 Est. Patient 09:54:41 CDT Checo Conklin MD [facility] CPT-01161 Level 3 Est. Patient 11:10:54 CDT Paul Hamlin MD [facility] CPT-65936 Level 3 Est. Patient 14:16:56 DIRECTOR OF CUSTOMER ACQUISITION Checo Conklin MD [facility] CPT-27603 Level 3 Est. Patient 11:04:11 DIRECTOR OF CUSTOMER ACQUISITION Checo Conklin MD [facility] CPT-46320 Level 3 Est. Patient 17:09:26 CDT Dangelo arroyo MD [facility] CPT-23963 Level 3 Est. Patient 16:54:37 CDT Checo Conklin MD [facility] Procedures Code Procedure Name Date Entry Date Standard Desc ription CPT-OV Office Visit 11:31:28 CDT CPT-86047 Tubersol 09:39:29 CDT CPT-J2550 Phenergan 25 mg (Promethazine) 13:59:02 DIRECTOR OF CUSTOMER ACQUISITION CPT-J1885 Toradol 60 mg (Ketorolac) 13:59:02 DIRECTOR OF CUSTOMER ACQUISITION 2012
--- OUTSIDE RECORDS SUMMARY | 2019-09-29 01:39 | XMS REPORT | Clinical Summary ---
Author Author Admin, Bethany Ayala [facility] Address Unknown Phone Unavailable Allergies, Adverse Reactions, [...] of nail Hypoglycemia, unspecified 251.2 Resolved Checo Conlkin MD Hypoglycemia, unspecified Insomnia 780.52 Resolved Checo [...] Inactive Checo Conklin MD Nausea ICD-787.02 Ozzy Coknlin MD 201 02/15/12 Medication List Medication Instructions Start Date Stop Date Generic Name NDC Status Provider Patient Instruction PAROXETINE HCL 40 MG ORAL TABLET 1 po qd PAR OXETINE HCL [id number] Active Checo Conklin MD Active MIRALAX ORAL POWDER 8.5 to 17g po qd PRN Constipation POLYETHYLENE GLYCOL 3350 [id number] No Longer Active Checo Conklin MD Active PROTONIX 40 MG ORAL TABLET DELAYED RELEASE 1 pill by m outh daily, for acid reflux PANTOPRAZOLE SODIUM 82263744757 No Longer Activ e Corry Méndez LPN Active FLAGYL 500 MG ORAL TABLET 1 tablet by mouth bid 08/29 METRONIDAZOLE 83044908386 No Longer Active Corry Méndez LPN Active CLARITHROMYCIN 500 MG ORAL TABLET 1 tab po BID x 14 days CLARITHROMYCIN 60327044535 No Longer Active Corry Méndez LPN Active AMOXICILLIN 500 MG ORAL CAPSULE 2 po BID x 14 days for H. Pylori AMOXICILLIN 63725092024 No Longer Active Corry Méndez LPN Active FLUTICASONE PROPIONATE 50 MCG/ACT NASAL SUSPENSION 2 s prays/nostril qd PRN Congestion/Allergies FLUTICASONE PROPIONATE 5550023924 9 No Longer Active Checo Conklin MD Active AMOXICILLIN 500 MG ORAL CAPSULE 2 po BID x 10 days 201 01/15/27 AMOXICILLIN 40635543989 No Longer Active Checo Conklin MD Activ e CLARITIN 10 MG ORAL TABLET 1 tablet by mouth daily as needed for allergies LORATADINE 15694080830 No Longer Active Checo Ortiz MD Active BACTRIM DS 800-160 MG ORAL TABLET 1 tab by mouth twice daily 201 12/19/26 TRIMETHOPRIM-SULFAMETHOXAZOLE 31624225115 No Longer Active Ragini Carrillo MD Active DIFLUCAN 150 MG ORAL TABLET 1 tablet by mouth qod 2015 FLUCONAZOLE 89975716158 No Longer Active Efren Medel APRN Act mike AZITHROMYCIN 250 MG ORAL TABLET 2 po qd x 1 day, then 1 po q d x 4 days AZITHROMYCIN 82508449409 No Longer Active Efren flores APRN Active FLAGYL 500 MG ORAL TABLET 1 tablet by mouth bid 04/13 METRONIDAZOLE 02532303514 No Longer Active Checo Conklin MD Acti ve FOCALIN XR 10 MG ORAL CAPSULE EXTENDED RELEASE 24 HOUR 1 po q a.m. DEXMETHYLPHENIDATE HCL 34257786231 Active Checo Conklin MD Active MAGNESIUM CITRATE 1.745 GM/30ML ORAL SOLUTION 150ml po BID P RN Constipation MAGNESIUM CITRATE 79514291772 No Longer Active Checo Conklin MD Active BACTROBAN 2 % EXTERNAL CREAM Apply to affected area BID for up to 10 days MUPIROCIN CALCIUM 74757563333 No Longer Active Checo Conklin MD Active HYDROCODONE-ACETAMINOPHEN 5-325 MG ORAL TABLET 1 tab b y mouth every 6 hours as needed HYDROCODONE-ACETAMINOPHEN 78477066798 No Longer Active Checo Conklin MD Active IBUPROFEN 800 MG ORAL TABLET 1 tab every 8 hours with food 03/20 IBUPROFEN 43689251874 No Longer Active Checo Conklin MD Active DIFLUCAN 150 MG ORAL TABLET 1 tablet by mouth if neede d, hold until symptoms start FLUCONAZOLE 15662584208 No Longer Active Checo Conklin MD Active BACTRIM DS 800-160 MG ORAL TABLET 1 tab by mouth twice daily 201 11/23/03 TRIMETHOPRIM-SULFAMETHOXAZOLE 40956467842 No Longer Active K imberly Whitmontezy, SALES AND DISTRIBUTION CLERK Active HYDROCODONE-ACETAMINOPHEN 5-325 MG ORAL TABLET 0.5 to 1 tab by mouth every 6 hours as needed HYDROCODONE-ACETAMINOPHEN 27384436872 No Longer Active Checo Conklin MD Active ONDANSETRON 8 MG ORAL TABLET DISINTEGRATING place one tablet on tongue and allow to dissolve every 6 hours as needed for vomitting ONDANSETRON 38472902129 No Longer Active Checo Conklin MD Activ e COMPRO 25 MG RECTAL SUPPOSITORY insert or apply one garza ppository rectally as directed every 12 hours as needed for nausea PROCHLORPERAZINE 70956405804 No Longer Active Checo Conklin MD A ctive SUMATRIPTAN SUCCINATE 100 MG ORAL TABLET Take one PRN for migran e SUMATRIPTAN SUCCINATE 40227910742 No Longer Active Checo Conklin MD Active TRAVEL SICKNESS 25 MG ORAL TABLET CHEWABLE chew and sw allow one tablet every 6 hours as needed MECLIZINE HCL 60536279134 No Longer A ctive Checo Conklin MD Active BUPROPION HCL ER (SR) 100 MG ORAL TABLET EXTENDED RELE ASE 12 HOUR take one tablet by mouth one time daily for one week then take 1 two times daily BUPROPION HCL 84617082985 No Longer Active Checo gallagher MD Active TERBINAFINE HCL 250 MG ORAL TABLET take one table PO one time da moises TERBINAFINE HCL 15933864016 No Longer Active Checo Conklin MD Active METOCLOPRAMIDE HCL 10 MG ORAL TABLET take one PO tid PRN nausea METOCLOPRAMIDE HCL 79558334410 No Longer Active Checo Conklin MD Active DICLOFENAC SODIUM 75 MG ORAL TABLET DELAYED RELEASE 1 tablet by mouth twice daily PRN Knee pain DICLOFENAC SODIUM 35856946499 No Longer Active Checo Conklin MD Active LAMISIL 250 MG ORAL TABLET 1 po qd TERBINAFI NE HCL 06787317952 No Longer Active Checo Conklin MD Active REGLAN 10 MG ORAL TABLET 1 po TID PRN Nausea 3 METOCLOPRAMIDE HCL 33725352127 No Longer Active Checo Conklin MD Active CELEXA 20 MG ORAL TABLET 1 tablet by mouth daily 09/26 CITALOPRAM HYDROBROMIDE 30208856396 No Longer Active Checo Conklin MD Active AZITHROMYCIN 250 MG ORAL TABLET 2 po qd x 1 day, then 1 po q d x 4 days AZITHROMYCIN 51618122824 No Longer Active Checo Ortiz MD Active HYDROCODONE-ACETAMINOPHEN 5-325 MG ORAL TABLET 1 po q 6hr PRN Pa in HYDROCODONE-ACETAMINOPHEN 96843723042 No Longer Active Lenora Conklin MD Active PHENAZOPYRIDINE HCL 200 MG ORAL TABLET take 1 tab po TID for bladder pain PHENAZOPYRIDINE HCL 42211523480 No Longer Active Joe Conklin MD Active CIPRO 500 MG ORAL TABLET 1 tablet by mouth twice daily CIPROFLOXACIN HCL 24667826473 No Longer Active Dangelo Rangel MD Active HYDROCODONE-ACETAMINOPHEN 5-325 MG ORAL TABLET 1/2 to 1 po q 4 hours prn cough HYDROCODONE-ACETAMINOPHEN 58538493451 No Longer Activ e Dangelo Rangel MD Active BACTRIM DS 800-160 MG ORAL TABLET 1 po BID x 7 days 29/04/10 SULFAMETHOXAZOLE-TRIMETHOPRIM 33644778392 No Longer Active Checo Conklin MD Active PREDNISONE 20 MG ORAL TABLET 2 tabs daily for 3 days, 1 tab daily for 3 days, 1/2 tab daily for 2 days PREDNISONE 65014348488 No Longer Active Checo Conklin MD Active TRIAMCINOLONE ACETONIDE 0.1 % EXTERNAL OINTMENT Apply to affected areas TID for up to 2 weeks TRIAMCINOLONE ACETONIDE 01081427117 No Longer Active Checo Conklin MD Active CEFDINIR 300 MG ORAL CAPSULE by mouth twice a day 2013 CEFDINIR 90704030231 No Longer Active Dangelo Rangel MD Acti ve BUPROPION HCL ER (SMOKING DET) 150 MG ORAL TABLET EXTE NDED RELEASE 12 HOUR 1 a day for 1 week then 1 twice a day BUPROPION HCL (SMOKING DETER) 72802151831 No Longer Active Checo Conklin MD Active SIMVASTATIN 20 MG ORAL TABLET 1 po qd SIMVASTAT IN 58332493025 Active Checo Conklin MD Active CHANTIX STARTING MONTH KARTHIK 0.5 MG X 11 & 1 MG X 42 ORA L TABLET 0.5mg daily for 3 days, then 0.5mg BID for 4 days, then 1mg BID VARENICLINE TARTRATE 32631844537 No Longer Active Checo Conklin MD Activ e XANAX 0.5 MG ORAL TABLET 1 po BID PRN anxiety A LPRAZOLAM 35636882252 Active Checo Conklin MD Active CONCERTA 18 MG ORAL TABLET EXTENDED RELEASE 1 po q a.m. METHYLPHENIDATE HCL 03067551324 No Longer Active Checo Conklin MD Active AMBIEN 5 MG ORAL TABLET 1 po qHS PRN Insomnia Z OLPIDEM TARTRATE 50863693427 Active Checo Conklin MD Active TRAZODONE HCL 100 MG ORAL TABLET 0.5 to 1 po qHS PRN Insomnia 20 30/07/08 TRAZODONE HCL 75367617813 No Longer Active Checo Conklin MD Active FIORICET 325-50-40 MG TAB 1 tablet by mouth four times daily as needed [id number] 74854188197 No Longer Active Checo Conklin MD Active PHENERGAN CREAM* 25mg applied to wrist q6hr PRN Nausea PHENERGAN CREAM* No Longer Active Checo Conklin MD A ctive FLONASE 50 MCG/ACT NASAL SUSPENSION 1 spray each nostril am and hs FLUTICASONE PROPIONATE 40070545563 No Longer Active Checo Conklin MD Active ANTIPYRINE-BENZOCAINE 5.4-1.4 % OTIC SOLUTION 1-2 drops in affec yohannes ear BENZOCAINE-ANTIPYRINE 12947590260 No Longer Active Checo Conklin MD Active CEFDINIR 300 MG ORAL CAPSULE 1 po bid CEFDINIR 60255411047 No Longer Active Checo Conklin MD Active PREDNISONE 20 MG ORAL TABLET 2 tabs daily for 3 days, 1 tab daily for 3 days, 1/2 tab daily for 2 days PREDNISONE 75100968766 No Longer Active Checo Conklin MD Active AZITHROMYCIN 250 MG ORAL TABLET 2 po qd x 1 day, then 1 po q d x 4 days AZITHROMYCIN 78180098307 No Longer Active Checo Ortiz MD Active PREDNISONE 20 MG ORAL TABLET 2 tabs daily for 3 days, 1 tab daily for 3 days, 1/2 tab daily for 2 days PREDNISONE 98703796311 No Longer Active Checo Conklin MD Active ZITHROMAX Z-KARTHIK 250 MG ORAL TABLET 2 today, then 1 daily for 4 d ays AZITHROMYCIN 55934288053 No Longer Active Paul Hamlin MD Active FOCALIN XR 10 MG ORAL CAPSULE EXTENDED RELEASE 24 HOUR 1 po q a. m. DEXMETHYLPHENIDATE HCL 33310404135 No Longer Active Paul Hamlin MD Active PERCOCET 10-325 MG ORAL TABLET 1 tablet every 6 hours as needed for pain OXYCODONE-ACETAMINOPHEN 82066294066 No Longer Active Paul Hamlin MD Active LORTAB 5-500 MG ORAL TABLET 1/2 to 1 tablet by mouth e very 4 hours as needed for pain HYDROCODONE-ACETAMINOPHEN 60603735684 No Longer Active Checo Conklin MD Active FOCALIN XR 15 MG ORAL CAPSULE EXTENDED RELEASE 24 HOUR 1 po q a. m. DEXMETHYLPHENIDATE HCL 66634793276 No Longer Active Checo Conklin MD Active ZOFRAN ODT 4 MG ORAL TABLET DISINTEGRATING 1 po q6hr PRN Nausea ONDANSETRON 25868608982 No Longer Active Cehco Conklin MD Active PERCOCET 5-325 MG ORAL TABLET 1 tablet by mouth every 6 hour s as needed OXYCODONE-ACETAMINOPHEN 13833458135 No Longer Active Checo Conklin MD Active PYRIDIUM 200 MG ORAL TABLET take 1 tab po TID prn urinary pain. PHENAZOPYRIDINE HCL 62957921308 No Longer Active Checo Joshua Active FLUCONAZOLE 150 MG ORAL TABLET take 1 tab po qday once FLUCONAZOLE 48461420950 No Longer Active Dangelo Rangel MD Acti ve CIPRO 500 MG ORAL TABLET 1 tablet by mouth twice daily CIPROFLOXACIN HCL 08863021729 No Longer Active Dangelo Rangel MD Active PYRIDIUM 200 MG ORAL TABLET take 1 tab po TID prn urinary pain. PYRIDIUM 200 MG ORAL TABLET 9908420 PHENAZOPYRIDINE HCL Inactive PERCOCET 5-325 MG ORAL TABLET 1 tablet by mouth every 6 hour s as needed PERCOCET 5-325 MG ORAL TABLET 1994715 OXYCODONE-ACETAMINOPHEN Inactive ZOFRAN ODT 4 MG ORAL TABLET DISINTEGRATING 1 po q6hr PRN Nausea ZOFRAN ODT 4 MG ORAL TABLET DISINTEGRATING 384763 ONDAN SETRON Inactive FOCALIN XR 15 MG ORAL CAPSULE EXTENDED RELEASE 24 HOUR 1 po q a. m. FOCALIN XR 15 MG ORAL CAPSULE EXTENDED RELEASE 24 HOUR DEXMETHYLPHENIDATE HCL Inactive LORTAB 5-500 MG ORAL TABLET 1/2 to 1 tablet by mouth e very 4 hours as needed for pain LORTAB 5-500 MG ORAL TABLET 218209 HYDROCODONE-ACETAMINOPHEN Inactive PERCOCET 10-325 MG ORAL TABLET 1 tablet every 6 hours as needed for pain PERCOCET 10-325 MG ORAL TABLET 1322165 OXYCODONE-ACETAMI NOPHEN Inactive FOCALIN XR 10 MG ORAL CAPSULE EXTENDED RELEASE 24 HOUR 1 po q a. m. FOCALIN XR 10 MG ORAL CAPSULE EXTENDED RELEASE 24 HOUR DEXMETHYLPHENIDATE HCL Inactive CEFDINIR 300 MG ORAL CAPSULE 1 po bid CEFDINI R 300 MG ORAL CAPSULE 367002 CEFDINIR Inactive ANTIPYRINE-BENZOCAINE 5.4-1.4 % OTIC SOLUTION 1-2 drops in affec yohannes ear ANTIPYRINE-BENZOCAINE 5.4-1.4 % OTIC SOLUTION 597071 BENZOCAINE-ANTIPYRINE Inactive FLONASE 50 MCG/ACT NASAL SUSPENSION 1 spray each nostril am and hs FLONASE 50 MCG/ACT NASAL SUSPENSION 3621714 FLUTICASONE PROPIONATE I nactive PHENERGAN CREAM* 25mg applied to wrist q6hr PRN Nausea PHENERGAN CREAM* Inactive FIORICET 325-50-40 MG TAB 1 tablet by mouth four times daily as needed FIORICET 325-50-40 MG TAB ACETAMINOPHEN-C AFF-BUTALBITAL Inactive TRAZODONE HCL 100 MG ORAL TABLET 0.5 to 1 po qHS PRN Insomnia 20 30/07/08 TRAZODONE HCL 100 MG ORAL TABLET 221342 TRAZODONE HCL Inactive CONCERTA 18 MG ORAL [...] cough HYDROCODONE-ACETAMINOPHEN 5-325 MG ORAL TABLET 8 23384 HYDROCODONE-ACETAMINOPHEN Inactive PHENAZOPYRIDINE HCL 200 MG ORAL TABLET take 1 tab po TID for bladder pain PHENAZOPYRIDINE HCL 200 MG ORAL TABLET 3029826 PHENAZOPYRIDINE HCL Inactive HYDROCODONE-ACETAMINOPHEN 5-325 MG ORAL TABLET 1 po q 6hr PRN Pa in HYDROCODONE-ACETAMINOPHEN 5-325 MG ORAL TABLET 447063 HYDROCODONE-ACETAMINOPHEN Inactive CELEXA 20 MG ORAL TABLET 1 tablet by mouth daily 09/26 CELEXA 20 MG ORAL TABLET 427619 CITALOPRAM HYDROBROMIDE Inactive REGLAN 10 MG ORAL TABLET 1 po TID PRN Nausea 3 REGLAN 10 MG ORAL TABLET 650258 METOCLOPRAMIDE HCL Inactive LAMISIL 250 MG ORAL TABLET 1 po qd L AMISIL 250 MG ORAL TABLET 126854 TERBINAFINE HCL Inactive DICLOFENAC SODIUM 75 MG ORAL TABLET DELAYED RELEASE 1 tablet by mouth twice daily PRN Knee pain DICLOFENAC SODIUM 75 MG ORAL TABLET DELAYED RELEASE 161951 DICLOFENAC SODIUM Inactive METOCLOPRAMIDE HCL 10 MG ORAL TABLET take one PO tid PRN nausea METOCLOPRAMIDE HCL 10 MG ORAL TABLET 492170 METOCLOPRAM ZACH HCL Inactive TERBINAFINE HCL 250 MG ORAL TABLET take one table PO one time da moises TERBINAFINE HCL 250 MG ORAL TABLET 019066 TERBINAFINE H CL Inactive BUPROPION HCL ER [...] SICKNESS 25 M G ORAL TABLET CHEWABLE 071163 MECLIZINE HCL Inactive SUMATRIPTAN SUCCINATE 100 MG ORAL TABLET Take one PRN for migran e SUMATRIPTAN SUCCINATE 100 MG ORAL TABLET 308186 SUMATRIPTAN SUCCINATE Inactive COMPRO 25 MG RECTAL SUPPOSITORY insert or apply one garza ppository rectally as directed every 12 hours as needed for nausea COMPRO 25 MG RECTAL SUPPOSITORY 159218 PROCHLORPERAZINE Inactive ONDANSETRON 8 MG ORAL TABLET DISINTEGRATING place one tablet on tongue and allow to dissolve every 6 hours as needed for vomitting ONDANSETRON 8 MG ORAL TABLET DISINTEGRATING 417535 ONDANSETRON Inactive HYDROCODONE-ACETAMINOPHEN 5-325 MG ORAL TABLET 0.5 to 1 tab by mouth every 6 hours as needed HYDROCODONE-ACETAMIN OPHEN 5-325 MG ORAL TABLET 139509 HYDROCODONE-ACETAMINOPHEN Inactive BACTRIM DS 800-160 MG ORAL TABLET 1 tab by mouth twice daily 201 11/23/03 BACTRIM DS 800-160 MG ORAL TABLET 919754 TRIMETHOPRIM-SULFAMETHOXAZOLE Inactive DIFLUCAN 150 MG ORAL TABLET [...] as needed HYDROCODONE-ACETAMINOPHEN 5-325 MG ORAL TABLET 577133 HYDROCODONE-ACETAMINOPHEN Inactive BACTROBAN 2 % EXTERNAL CREAM Apply to affected area BID for up to 10 days BACTROBAN 2 % EXTERNAL CREAM 536653 MUPIROCIN CA LCIUM Inactive MAGNESIUM CITRATE 1.745 GM/30ML ORAL SOLUTION 150ml po BID P RN Constipation MAGNESIUM CITRATE 1.745 GM/30ML ORAL SOLUTION 10 51231 MAGNESIUM CITRATE Inactive DIFLUCAN 150 MG ORAL TABLET 1 tablet by mouth qod 2015 DIFLUCAN 150 MG ORAL TABLET 074625 FLUCONAZOLE Inactive BACTRIM DS 800-160 MG ORAL TABLET 1 tab by mouth twice daily 201 12/19/26 BACTRIM DS 800-160 MG ORAL TABLET 198103 TRIMETHOPRIM-SULFAMETHOXAZOLE Inactive CLARITIN 10 MG ORAL TABLET 1 tablet by mouth daily as needed for allergies CLARITIN 10 MG ORAL TABLET 495334 LORATADINE I nactive FLUTICASONE PROPIONATE 50 MCG/ACT NASAL SUSPENSION 2 s prays/nostril qd PRN Congestion/Allergies FLUTICASONE PROPION ATE 50 MCG/ACT NASAL SUSPENSION 9465453 FLUTICASONE PROPIONATE Inactive MIRALAX ORAL POWDER 8.5 to 17g po qd PRN Constipation MIRALAX ORAL POWDER 203598 POLYETHYLENE GLYCOL 3350 Inactive CIPRO 500 MG ORAL TABLET 1 tablet by mouth twice daily CIPRO 500 MG ORAL TABLET 944699 CIPROFLOXACIN HCL Inactive FLUCONAZOLE 150 MG ORAL TABLET take 1 tab po qday once FLUCONAZOLE 150 MG ORAL TABLET 685530 FLUCONAZOLE Inactive ZITHROMAX Z-KARTHIK 250 MG ORAL TABLET 2 today, then 1 daily for 4 d ays ZITHROMAX Z-KARTHIK 250 MG ORAL TABLET 762016 AZITHROMYCIN Inactive PREDNISONE 20 MG ORAL TABLET 2 tabs daily for 3 days, 1 tab daily for 3 days, 1/2 tab daily for 2 days PREDNISONE 20 MG ORAL T ABLET 123120 PREDNISONE Inactive AZITHROMYCIN 250 MG ORAL TABLET 2 po qd x 1 day, then 1 po q d x 4 days AZITHROMYCIN 250 MG ORAL TABLET 991257 AZITHROMY SPARKLE Inactive PREDNISONE 20 MG ORAL TABLET 2 tabs daily for 3 days, 1 tab daily for 3 days, 1/2 tab daily for 2 days PREDNISONE 20 MG ORAL TABLET 370068 PREDNISONE Inactive CEFDINIR 300 MG ORAL CAPSULE by mouth twice a day 2013 CEFDINIR 300 MG ORAL CAPSULE 663456 CEFDINIR Inactive TRIAMCINOLONE ACETONIDE 0.1 % EXTERNAL OINTMENT Apply to affected areas TID for up to 2 weeks TRIAMCINOLONE ACETON ZACH 0.1 % EXTERNAL OINTMENT 1872383 TRIAMCINOLONE ACETONIDE Inactive PREDNISONE 20 MG ORAL TABLET 2 tabs daily for 3 days, 1 tab daily for 3 days, 1/2 tab daily for 2 days PREDNISONE 20 MG ORAL T ABLET 399509 PREDNISONE Inactive BACTRIM DS 800-160 MG ORAL TABLET 1 po BID x 7 days 29/04/10 BACTRIM DS 800-160 MG ORAL TABLET 952927 SULFAMETHOXAZOLE-TRIMETHOP RIM Inactive CIPRO 500 MG ORAL TABLET 1 tablet by mouth twice daily CIPRO 500 MG ORAL TABLET 345124 CIPROFLOXACIN HCL Inactive AZITHROMYCIN 250 MG ORAL TABLET 2 po qd x 1 day, then 1 po q d x 4 days AZITHROMYCIN 250 MG ORAL TABLET 232145 AZITHROMY SPARKLE Inactive FLAGYL 500 MG ORAL TABLET 1 tablet by mouth bid 04/13 FLAGYL 500 MG ORAL TABLET 579285 METRONIDAZOLE Inactive AZITHROMYCIN 250 MG ORAL TABLET 2 po qd x 1 day, then 1 po q d x 4 days AZITHROMYCIN 250 MG ORAL TABLET 071957 AZITHROMY SPARKLE Inactive AMOXICILLIN 500 MG ORAL CAPSULE 2 po BID x 10 days 201 01/15/27 AMOXICILLIN 500 MG ORAL CAPSULE 773177 AMOXICILLIN Inactive AMOXICILLIN 500 MG ORAL CAPSULE 2 po BID x 14 days for H. Pylori AMOXICILLIN 500 MG ORAL CAPSULE 061673 AMOXICILLIN Inactive CLARITHROMYCIN 500 MG ORAL TABLET 1 tab po BID x 14 days CLARITHROMYCIN 500 MG ORAL TABLET 626323 CLARITHROMYCIN Inacti ve FLAGYL 500 MG ORAL TABLET 1 tablet by mouth bid 08/29 FLAGYL 500 MG ORAL TABLET 283937 METRONIDAZOLE Inactive PROTONIX 40 MG ORAL TABLET DELAYED RELEASE 1 pill by m outh daily, for acid reflux PROTONIX 40 MG ORAL TABLET DELAYED RELEAS E 081203 PANTOPRAZOLE SODIUM Inactive Immunizations Vaccine Administration Date [...] PANEL - Chemistry cholesterol, serum 192 mg/dL [phone]/02/20 HDL cholesterol, serum 31 mg/dL > OR [...] 11 .0-15.0 platelet count 218 THOUSAND/UL 10*3/mm3 861-924 3294/02/20 mean platelet volume 9.7 fL 7.5-12.5 Lab Report: Comp. Metabolic Panel, Eryth rocyte Sed Rate, UADIP W/MICRO, ... - Chemistry protein, total urine random Negative mg/dL Negative sodium, serum 139 mmol/L [phone]/11/28 carbon dioxide, venous blood 26.0 mmol/L 21.0-32 [...] Negative Encounters Code Encounter Date Provider Facility CPT-41075 Level 4 Est. Patient 08:57:51 GAMING DEALER Checo Conklin MD [facility] CPT-51031 Level 3 Est. Patient 11:24:55 GAMING DEALER Efren almendarez APRN [facility] CPT-61459 Level 3 Est. Patient 13:05:44 CDT Paul Hamlin MD [facility] CPT-94316 Level 3 Est. Patient 11:29:55 CDT Checo Conklin MD [facility] CPT-10851 Level 4 Est. Patient 11:08:12 GAMING DEALER Checo Conklin MD [facility] CPT-30384 Level 4 Est. Patient 16:06:48 GAMING DEALER Checo Conklin MD [facility] CPT-49966 Level 3 Est. Patient 09:11:49 CDT Efren almendarez [facility] CPT-42577 Level 2 Est. Patient 19:53:27 CDT Tanner hill MD [facility] CPT-04726 Level 3 Est. Patient 09:15:34 CDT Efren almendarez [facility] CPT-70600 Level 3 Est. Patient 11:28:51 GAMING DEALER Efren almendarez [facility] CPT-24683 Level 4 Est. Patient 13:55:46 GAMING DEALER Checo Conklin MD [facility] CPT-81543 Level 4 Est. Patient 17:10:53 CDT Checo Conklin MD [facility] CPT-83016 Level 3 Est. Patient 15:56:22 CDT Checo Conklin MD [facility] CPT-31127 Level 3 Est. Patient 15:29:07 CDT Checo Conklin MD [facility] CPT-28545 Level 3 Est. Patient 14:38:41 CDT Checo Conklin MD [facility] CPT-13441 Level 3 Est. Patient 15:22:03 GAMING DEALER Thomas reynolds DO [facility] CPT-31780 Level 3 Est. Patient 13:34:17 GAMING DEALER Checo Conklin MD [facility] CPT-84317 Level 3 Est. Patient 12:29:32 CDT Dangelo arroyo MD [facility] CPT-80938 Level 3 Est. Patient 16:53:02 CDT Checo Conklin MD [facility] CPT-47781 Level 3 Est. Patient 16:37:13 CDT Checo Conklin MD [facility] CPT-63858 Level 3 Est. Patient 16:16:59 CDT Paul Hamlin MD [facility] CPT-97397 Level 3 Est. Patient 14:20:13 CDT Dangelo arroyo MD [facility] CPT-15176 Level 4 Est. Patient 11:29:33 CDT Checo Conklin MD [facility] CPT-85408 Level 3 Est. Patient 17:08:31 CDT Checo Conklin MD [facility] CPT-71500 Level 3 Est. Patient 16:50:42 GAMING DEALER Checo Conklin MD [facility] CPT-78906 Level 4 Est. Patient 09:26:08 GAMING DEALER Checo Conklin MD [facility] CPT-34252 Level 3 Est. Patient 11:37:10 CDT Checo Conklin MD [facility] CPT-22224 Level 4 Est. Patient 14:07:38 CDT Checo Conklin MD [facility] CPT-57815 Level 3 Est. Patient 09:54:41 CDT Checo Conklin MD [facility] CPT-15546 Level 3 Est. Patient 11:10:54 CDT Paul Hamlin MD [facility] CPT-56973 Level 3 Est. Patient 14:16:56 GAMING DEALER Checo Conklin MD [facility] CPT-98302 Level 3 Est. Patient 11:04:11 GAMING DEALER Checo Conklin MD [facility] CPT-17128 Level 3 Est. Patient 17:09:26 CDT Dangelo arroyo MD [facility] CPT-75210 Level 3 Est. Patient 16:54:37 CDT Checo Conklin MD [facility] Procedures Code Procedure Name Date Entry Date Standard Desc ription CPT-05208 Abd compl w upright - XRAY USE ONLY 1 1:36:54 GAMING DEALER CPT-90575 UA w micro - LAB USE ONLY 17:06:46 CDT 2015 CPT-47876 BHCG Qual - LAB USE ONLY 17:06:46 CDT 05/06 CPT-01201 CMP - LAB USE ONLY 17:06:46 CDT CPT-75761 CBC with Diff - LAB USE ONLY 17:06:45 CDT 2 CPT-49707 Venipuncture Draw Fee 17:06:45 CDT CPT-LR Lesion Removal 19:53:27 CDT CPT-OV Office Visit 11:31:28 CDT CPT-53796 Tubersol 09:39:29 CDT CPT-J2550 Phenergan 25 mg (Promethazine) 13:59:02 GAMING DEALER CPT-J1885 Toradol 60 mg (Ketorolac) 13:59:02 GAMING DEALER 2012
--- OUTSIDE RECORDS SUMMARY | 2019-09-29 01:39 | XMS REPORT | Clinical Summary ---
Author Author Admin, Bethany Gonzales Organization [facility] Address Unknown Phone Unavailable Allergies, Adverse Reactions, [...] Constipation, unspecified Abscess, skin 682.9 Resolved Checo Conklni MD Cellulitis and abscess of unspecified sites Insomnia, chronic 307.42 Active Checo Conklin MD Persistent disorder of initiating or maintaining sleep Bacterial vaginosis 616.10 Resolved Checo martinez MD Vaginitis and vulvovaginitis, unspecified Pharyngitis 462 Active Jimarine Medel RESISTANCE WELDING MACHINE OPERATOR Acute pharyngitis Cough 786.2 Active [...] 1 tablet by mouth qod FLUCONA ZOLE 06436652753 Active Jillina Frazell RESISTANCE WELDING MACHINE OPERATOR Active CLARITIN 10 MG TAB 1 tablet by mouth daily as needed for allergies LORATADINE 52100602966 Active Jillina Frazell RESISTANCE WELDING MACHINE OPERATOR Active AZITHROMYCIN 250 MG TABS 2 po qd x 1 day, then 1 po qd x 4 days AZITHROMYCIN 20483770138 Active Jillina Frazell RESISTANCE WELDING MACHINE OPERATOR A ctive FLAGYL 500 MG TAB 1 tablet by mouth bid METRONI DAZOLE 14328413980 No Longer Active Checo Conklin MD Active FOCALIN XR 10 MG ORAL [id number] 1 po q a.m. DEX METHYLPHENIDATE HCL 27185965567 Active Checo Conklin MD Active MAGNESIUM CITRATE 1.745 GM/30ML ORAL SOLN 150ml po BID PRN C onstipation MAGNESIUM CITRATE 27927885908 No Longer Active Checo Conklin MD Active BACTROBAN 2 % CREAM Apply to affected area BID for up to 10 days MUPIROCIN CALCIUM 82740112620 No Longer Active Checo Conklin MD Active HYDROCODONE-ACETAMINOPHEN 5-325 MG TABS 1 tab by mouth every 6 hours as needed HYDROCODONE-ACETAMINOPHEN 65006407911 No Longer Activ e Checo Conklin MD Active IBUPROFEN 800 MG TABS 1 tab every 8 hours with food 31/03/21 IBUPROFEN 37000477570 No Longer Active Checo Conklin MD Activ e DIFLUCAN 150 MG TAB 1 tablet by mouth if needed, hold until symptoms start FLUCONAZOLE 15983244531 No Longer Active Checo Ortiz MD Active BACTRIM DS 800-160 MG TAB 1 tab by mouth twice daily 2 TRIMETHOPRIM-SULFAMETHOXAZOLE 92582754052 No Longer Active Corry leong LPN Active MIRALAX PACK 1 po qd PRN Constipation POLYETHYL JOEL GLYCOL 3350 36817505604 Active Checo Conklin MD Active HYDROCODONE-ACETAMINOPHEN 5-325 MG TABS 0.5 to 1 tab b y mouth every 6 hours as needed HYDROCODONE-ACETAMINOPHEN 69527370657 No Longer Active Checo Conklin MD Active ONDANSETRON [address] one tablet on tongue and allow to dissolve every 6 hours as needed for vomitting ONDANSETRO N 68483735250 No Longer Active Checo Conklin MD Active COMPRO 25 MG RECTAL SUPP insert or apply one supposit ory rectally as directed every 12 hours as needed for nausea PROCHLORPERA ZINE 33018313563 No Longer Active Checo Conklin MD Active SUMATRIPTAN SUCCINATE 100 MG ORAL TABS Take one PRN for migrane SUMATRIPTAN SUCCINATE 38402267789 No Longer Active Checo Conklin MD Active TRAVEL SICKNESS 25 MG ORAL CHEW chew and swallow one t ablet every 6 hours as needed MECLIZINE HCL 74196395768 No Longer Active Joe Conklin MD Active BUPROPION HCL ER (SR) 100 MG ORAL [id number] take one t ablet by mouth one time daily for one week then take 1 two times daily BUPROPION HCL 99185175372 No Longer Active Checo Conklin MD Activ e TERBINAFINE HCL 250 MG ORAL TABS take one table PO one time abran y TERBINAFINE HCL 86081297948 No Longer Active Checo Conklin MD Active METOCLOPRAMIDE HCL 10 MG ORAL TABS take one PO tid PRN nausea 20 29/12/14 METOCLOPRAMIDE HCL 26902573506 No Longer Active Checo Conklin MD Active DICLOFENAC SODIUM 75 MG TBEC 1 tablet by mouth twice daily P RN Knee pain DICLOFENAC SODIUM 75435450771 No Longer Active Checo Conklin MD Active LAMISIL 250 MG TAB 1 po qd TERBINAFINE HCL 548 47996434 No Longer Active Checo Conklin MD Active REGLAN 10 MG TAB 1 po TID PRN Nausea METOCLOPRA MIDE HCL 18814225183 No Longer Active Checo Conklin MD Active CELEXA 20 MG TABS 1 tablet by mouth daily CITALOPRAM HYDROBROMIDE 56820854930 No Longer Active Checo Conklin MD Activ e AZITHROMYCIN 250 MG TABS 2 po qd x 1 day, then 1 po qd x 4 days AZITHROMYCIN 74366905636 No Longer Active Checo Conklin MD Active HYDROCODONE-ACETAMINOPHEN 5-325 MG TABS 1 po q 6hr PRN Pain 2013 HYDROCODONE-ACETAMINOPHEN 24187945076 No Longer Active Lenora Conklin MD Active PHENAZOPYRIDINE HCL 200 MG TABS take 1 tab po TID for bladder pa in PHENAZOPYRIDINE HCL 26111182437 No Longer Active Checo Joshua Active CIPRO 500 MG TAB 1 tablet by mouth twice daily CIPROFLOXACIN HCL 38474194699 No Longer Active Dangelo Rangel MD Active HYDROCODONE-ACETAMINOPHEN 5-325 MG TABS 1/2 to 1 po q 4 hour s prn cough HYDROCODONE-ACETAMINOPHEN 61320769833 No Longer Activ e Dangelo Rangel MD Active BACTRIM DS 800-160 MG TABS 1 po BID x 7 days 0 SULFAMETHOXAZOLE-TRIMETHOPRIM 19151799336 No Longer Active Checo Conklin MD Active PREDNISONE 20 MG TAB 2 tabs daily for 3 days, 1 t ab daily for 3 days, 1/2 tab daily for 2 days PREDNISONE 90169976911 No Longer Active Checo Conklin MD Active TRIAMCINOLONE ACETONIDE 0.1 % OINT Apply to affected a reas TID for up to 2 weeks TRIAMCINOLONE ACETONIDE 17117555166 No Longer A ctive Checo Conklin MD Active CEFDINIR 300 MG CAPS by mouth twice a day CEFDI JAZZY 65850392053 No Longer Active Dangelo Rangel MD Active BUPROPION HCL (SMOKING DETER) 150 MG [id number] 1 a day for 1 week then 1 twice a day BUPROPION HCL (SMOKING DETER) 39042359959 No Lo nger Active Checo Conklin MD Active SIMVASTATIN 20 MG TABS 1 po qd SIMVASTATIN 7839308084 5 Active Checo Conklin MD Active CHANTIX STARTING MONTH KARTHIK 0.5 MG X 11 & 1 MG X 42 TAB S 0.5mg daily for 3 days, then 0.5mg BID for 4 days, then 1mg BID VARENICLINE TARTRATE 12470938831 No Longer Active Checo Conklin MD Activ e XANAX 0.5 MG TABS 1 po BID PRN anxiety ALPRAZOLAM 24054160881 Active Checo Conklin MD Active CONCERTA 18 MG CR-TABS 1 po q a.m. METHYLPHENID ATE HCL 26041299368 No Longer Active Checo Conklin MD Active AMBIEN 5 MG TAB 1 po qHS PRN Insomnia ZOLPIDEM TARTRATE 33460113122 Active Checo Conklin MD Active TRAZODONE HCL 100 MG TAB 0.5 to 1 po qHS PRN Insomnia TRAZODONE HCL 10165763119 No Longer Active Checo Conklin MD Acti ve FIORICET 325-50-40 MG TAB 1 tablet by mouth four times daily as needed [id number] 68255224490 No Longer Active Checo Conklin MD Active PHENERGAN CREAM* 25mg applied to wrist q6hr PRN Nausea PHENERGAN CREAM* No Longer Active Checo Conklin MD A ctive FLONASE 50 MCG/ACT SUSP 1 spray each nostril am and hs FLUTICASONE PROPIONATE 87825244512 No Longer Active Checo Conklin MD Activ e ANTIPYRINE-BENZOCAINE 5.4-1.4 % SOLN 1-2 drops in affected ear BENZOCAINE-ANTIPYRINE 33076785534 No Longer Active Checo Conklin MD Active CEFDINIR 300 MG CAPS 1 po bid CEFDINIR 06883750 120 No Longer Active Checo Conklin MD Active PREDNISONE 20 MG TAB 2 tabs daily for 3 days, 1 t ab daily for 3 days, 1/2 tab daily for 2 days PREDNISONE 50044298876 No Longer Active Aracelis Conklin MD Active AZITHROMYCIN 250 MG TABS 2 po qd x 1 day, then 1 po qd x 4 days AZITHROMYCIN 41613032632 No Longer Active Checo Conklin MD Active PREDNISONE 20 MG TAB 2 tabs daily for 3 days, 1 t ab daily for 3 days, 1/2 tab daily for 2 days PREDNISONE 46374999349 No Longer Active Checo Conklin MD Active ZITHROMAX Z-KARTHIK 250 MG TABS 2 today, then 1 daily for 4 days 201 09/18/28 AZITHROMYCIN 11699320209 No Longer Active Paul Hamlin MD Active FOCALIN XR 10 MG [id number] 1 po q a.m. D EXMETHYLPHENIDATE HCL 18040287061 No Longer Active Paul Hamlin MD Activ e PERCOCET 10-325 MG TABS 1 tablet every 6 hours as needed for pain OXYCODONE-ACETAMINOPHEN 34368003805 No Longer Active Paul Hamlin MD Active LORTAB 5 5-500 MG TABS 1/2 to 1 tablet by mouth flaquito ry 4 hours as needed for pain HYDROCODONE-ACETAMINOPHEN 69472954652 No Longer Active Checo Conklin MD Active FOCALIN XR 15 MG [id number] 1 po q a.m. D EXMETHYLPHENIDATE HCL 61408146027 No Longer Active Checo Conklin MD Activ e ZOFRAN ODT 4 MG TBDP 1 po q6hr PRN Nausea ONDAN SETRON 22321432677 No Longer Active Checo Conklin MD Active PERCOCET 5-325 MG TABS 1 tablet by mouth every 6 hours as needed OXYCODONE-ACETAMINOPHEN 62451433469 No Longer Active Checo Conklin MD Active PYRIDIUM 200 MG TABS take 1 tab po TID prn urinary pain. 0 PHENAZOPYRIDINE HCL 93273553633 No Longer Active Checo Conklin MD Active FLUCONAZOLE 150 MG TABS take 1 tab po qday once 04/06 FLUCONAZOLE 01210982531 No Longer Active Dangelo Rangel MD Acti ve CIPRO 500 MG TAB 1 tablet by mouth twice daily CIPROFLOXACIN HCL 04541787108 No Longer Active Dangelo Rangel MD Active PYRIDIUM 200 MG TABS take 1 tab po TID prn urinary pain. 0 PYRIDIUM 200 MG TABS 0651662 PHENAZOPYRIDINE HCL Inactive PERCOCET 5-325 MG TABS 1 tablet by mouth every 6 hours as needed PERCOCET 5-325 MG TABS 8585601 OXYCODONE-ACETAMINOPHEN I nactive ZOFRAN ODT 4 MG TBDP 1 po q6hr PRN Nausea ZOFRAN ODT 4 MG TBDP 018585 ONDANSETRON Inactive FOCALIN XR 15 MG [id number] 1 po q a.m. F OCALIN XR 15 MG [id number] DEXMETHYLPHENIDATE HCL Inactive LORTAB 5 5-500 MG TABS 1/2 to 1 tablet by mouth flaquito ry 4 hours as needed for pain LORTAB 5 5-500 MG TABS HYDROCODONE-A CETAMINOPHEN Inactive PERCOCET 10-325 MG TABS 1 tablet every 6 hours as needed for pain PERCOCET 10-325 MG TABS 2965100 OXYCODONE-ACETAMINOPHEN Inactive FOCALIN XR 10 MG [id number] 1 po q a.m. F OCALIN XR 10 MG [id number] DEXMETHYLPHENIDATE HCL Inactive CEFDINIR 300 MG CAPS 1 po bid CEFDINIR 300 MG CAPS 20 0346 CEFDINIR Inactive ANTIPYRINE-BENZOCAINE 5.4-1.4 % SOLN 1-2 drops in affected ear ANTIPYRINE-BENZOCAINE 5.4-1.4 % SOLN 050421 BENZOCAINE-ANTIPYRINE I nactive FLONASE 50 MCG/ACT SUSP [...] PRN Insomnia TRAZODONE HCL 100 MG TAB 565207 TRAZODONE HCL Inactive CONCERTA 18 MG CR-TABS [...] s prn cough HYDROCODONE-ACETAMINOPHEN 5-325 MG TABS 457579 HYDROCODONE-ACETAMINOPHEN Inactive PHENAZOPYRIDINE HCL 200 MG TABS take 1 tab po TID for bladder pa in PHENAZOPYRIDINE HCL 200 MG TABS 7243209 PHENAZOPYRIDINE HCL Inactive HYDROCODONE-ACETAMINOPHEN 5-325 MG TABS 1 po q 6hr PRN Pain 2013 HYDROCODONE-ACETAMINOPHEN 5-325 MG TABS 651699 HYDROCODONE-ACETAMINOPHEN Inactive CELEXA 20 MG TABS 1 tablet by mouth daily CELEXA 20 MG TABS 767002 CITALOPRAM HYDROBROMIDE Inactive REGLAN 10 MG TAB 1 po TID PRN Nausea REGLAN 10 MG TAB 315059 METOCLOPRAMIDE HCL Inactive LAMISIL 250 MG TAB 1 po qd LAMISIL 250 MG TAB 576186 TERBINAFINE HCL Inactive DICLOFENAC SODIUM 75 MG TBEC 1 tablet by mouth twice daily P RN Knee pain DICLOFENAC SODIUM 75 MG TBEC 980804 DICLOFENAC S ODIUM Inactive METOCLOPRAMIDE HCL 10 MG ORAL TABS take one PO tid PRN nausea 20 29/12/14 METOCLOPRAMIDE HCL 10 MG ORAL TABS 965032 METOCLOPRAMID E HCL Inactive TERBINAFINE HCL 250 MG ORAL TABS take one table PO one time abran y TERBINAFINE HCL 250 MG ORAL TABS 333617 TERBINAFINE HCL Inactive BUPROPION HCL ER (SR) 100 MG ORAL [id number] take one t ablet by mouth one time daily for one week then take 1 two times daily BUPROPION HCL ER (SR) 100 MG ORAL [id number] BUPROPION HCL Inacti ve TRAVEL SICKNESS 25 MG ORAL CHEW chew and swallow one t ablet every 6 hours as needed TRAVEL SICKNESS 25 MG ORAL CHEW 314454 MECLIZINE HCL Inactive SUMATRIPTAN SUCCINATE 100 MG ORAL TABS Take one PRN for migrane SUMATRIPTAN SUCCINATE 100 MG ORAL TABS 794509 SUMATRIPT AN SUCCINATE Inactive COMPRO 25 MG RECTAL SUPP insert or apply one supposit ory rectally as directed every 12 hours as needed for nausea COMP RO 25 MG RECTAL SUPP 205447 PROCHLORPERAZINE Inactive ONDANSETRON [address] one tablet on tongue and allow to dissolve every 6 hours as needed for vomitting ON DANSETRON 8 MG ORAL TBDP 486603 ONDANSETRON Inactive HYDROCODONE-ACETAMINOPHEN 5-325 MG TABS 0.5 to 1 tab b y mouth every 6 hours as needed HYDROCODONE-ACETAMINOPHEN 5-325 MG TABS 8 84996 HYDROCODONE-ACETAMINOPHEN Inactive BACTRIM DS 800-160 MG TAB 1 tab by mouth twice daily 2 BACTRIM DS 800-160 MG TAB 114326 TRIMETHOPRIM-SULFAMETHOXAZOLE Inac tive DIFLUCAN 150 MG TAB 1 tablet by mouth if needed, hold until symptoms start DIFLUCAN 150 MG TAB 638139 FLUCONAZOLE Inactive IBUPROFEN 800 MG TABS 1 tab every 8 hours with food 31/03/21 IBUPROFEN 800 MG TABS 555776 IBUPROFEN Inactive HYDROCODONE-ACETAMINOPHEN 5-325 MG TABS 1 tab by mouth every 6 hours as needed HYDROCODONE-ACETAMINOPHEN 5-325 MG TABS 287391 HYDROCODONE-ACETAMINOPHEN Inactive BACTROBAN 2 % CREAM Apply to affected area BID for up to 10 days BACTROBAN 2 % CREAM 658578 MUPIROCIN CALCIUM Inactive MAGNESIUM CITRATE 1.745 GM/30ML ORAL SOLN 150ml po BID PRN C onstipation MAGNESIUM CITRATE 1.745 GM/30ML ORAL SOLN 525496 0 MAGNESIUM CITRATE Inactive CIPRO 500 MG TAB 1 tablet by mouth twice daily CIPRO 500 MG TAB 111489 CIPROFLOXACIN HCL Inactive FLUCONAZOLE 150 MG TABS take 1 tab po qday once 04/06 FLUCONAZOLE 150 MG TABS 726902 FLUCONAZOLE Inactive ZITHROMAX Z-KARTHIK 250 MG TABS 2 today, then 1 daily for 4 days 201 09/18/28 ZITHROMAX Z-KARTHIK 250 MG TABS 3014330 AZITHROMYCIN Inac tive PREDNISONE 20 MG TAB 2 tabs daily for 3 days, 1 t ab daily for 3 days, 1/2 tab daily for 2 days PREDNISONE 20 MG TAB 232203 PREDNISON E Inactive AZITHROMYCIN 250 MG TABS 2 po qd x 1 day, then 1 po qd x 4 days AZITHROMYCIN 250 MG TABS 2319565 AZITHROMYCIN Inactiv e PREDNISONE 20 MG TAB 2 tabs daily for 3 days, 1 t ab daily for 3 days, 1/2 tab daily for 2 days PREDNISONE 20 MG TAB 034281 PREDNISON E Inactive CEFDINIR 300 MG CAPS by mouth twice a day CEFDINIR 300 MG CAPS 699723 CEFDINIR Inactive TRIAMCINOLONE ACETONIDE 0.1 % OINT Apply to affected a reas TID for up to 2 weeks TRIAMCINOLONE ACETONIDE 0.1 % OINT 677547 6 TRIAMCINOLONE ACETONIDE Inactive PREDNISONE 20 MG TAB 2 tabs daily for 3 days, 1 t ab daily for 3 days, 1/2 tab daily for 2 days PREDNISONE 20 MG TAB 280537 PREDNISON E Inactive BACTRIM DS 800-160 MG TABS 1 po BID x 7 days 0 BACTRIM DS 800-160 MG TABS 284565 SULFAMETHOXAZOLE-TRIMETHOPRIM Inactive CIPRO 500 MG TAB 1 tablet by mouth twice daily CIPRO 500 MG TAB 752349 CIPROFLOXACIN HCL Inactive AZITHROMYCIN 250 MG TABS 2 po qd x 1 day, then 1 po qd x 4 days AZITHROMYCIN 250 MG TABS 5809259 AZITHROMYCIN Inactiv e FLAGYL 500 MG TAB 1 tablet by mouth bid FLAGYL 500 MG TAB 031575 METRONIDAZOLE Inactive Immunizations Vaccine Administration Date Value [...] ... - Chemistry sodium, serum 141 mmol/L 932-042 6905/01/26 carbon dioxide, venous blood 30.0 mmol/L 21.0-32 .0 potassium, serum 4.0 mmol/L 3.5-5.2 chloride, serum 105 mmol/L 98-107 blood glucose 85 mg/dL 65-110 urea nitrogen, blood 9 mg/dL 7-18 creatinine, serum 0.66 mg/dL 0.55-1.30 alanine aminotransferase (SGPT), serum 31 U/L 12-78 aspartate aminotransferase (SGOT), serum 21 U/L 15-37 calcium, serum 8.2 mg/dL 8.5-10.1 bilirubin, serum, total 1.10 mg/dL 0.00-1.00 cholesterol, serum 178 mg/dL 027-551 7436/01/26 triglyceride, serum, fasting 149 mg/dL 30-200 HDL [...] 5.0-8.5 Encounters Code Encounter Date Provider Facility CPT-28850 Level 3 Est. Patient 11:28:51 CRM MANAGER Efren almendarez APRN [facility] CPT-71602 Level 4 Est. Patient 13:55:46 CRM MANAGER Checo Conklin MD [facility] CPT-59266 Level 4 Est. Patient 17:10:53 CDT Checo Conklin MD [facility] CPT-79009 Level 3 Est. Patient 15:56:22 CDT Checo Conklin MD [facility] CPT-37551 Level 3 Est. Patient 15:29:07 CDT Checo Conklin MD [facility] CPT-47573 Level 3 Est. Patient 14:38:41 CDT Checo Conklin MD [facility] CPT-79830 Level 3 Est. Patient 15:22:03 CRM MANAGER Thomas reynolds DO [facility] CPT-12256 Level 3 Est. Patient 13:34:17 CRM MANAGER Checo Conklin MD [facility] CPT-56892 Level 3 Est. Patient 12:29:32 CDT Dangelo arroyo MD [facility] CPT-29446 Level 3 Est. Patient 16:53:02 CDT Checo Conklin MD [facility] CPT-99336 Level 3 Est. Patient 16:37:13 CDT Checo Conklin MD [facility] CPT-48566 Level 3 Est. Patient 16:16:59 CDT Paul Hamlin MD [facility] CPT-94975 Level 3 Est. Patient 14:20:13 CDT Dangelo arroyo MD [facility] CPT-32206 Level 4 Est. Patient 11:29:33 CDT Checo Conklin MD [facility] CPT-36967 Level 3 Est. Patient 17:08:31 CDT Checo Conklin MD [facility] CPT-83491 Level 3 Est. Patient 16:50:42 CRM MANAGER Checo Conklin MD [facility] CPT-20783 Level 4 Est. Patient 09:26:08 CRM MANAGER Checo Conklin MD [facility] CPT-74249 Level 3 Est. Patient 11:37:10 CDT Checo Conklin MD [facility] CPT-90164 Level 4 Est. Patient 14:07:38 CDT Checo Conklin MD [facility] CPT-30858 Level 3 Est. Patient 09:54:41 CDT Checo Conklin MD [facility] CPT-29355 Level 3 Est. Patient 11:10:54 CDT Paul Hamlin MD [facility] CPT-26854 Level 3 Est. Patient 14:16:56 CRM MANAGER Checo Conklin MD [facility] CPT-45828 Level 3 Est. Patient 11:04:11 CRM MANAGER Checo Conklin MD [facility] CPT-48394 Level 3 Est. Patient 17:09:26 CDT Dangelo arroyo MD [facility] CPT-28460 Level 3 Est. Patient 16:54:37 CDT Checo Conklin MD [facility] Procedures Code Procedure Name Date Entry Date Standard Desc ription CPT-OV Office Visit 11:31:28 CDT CPT-34021 Tubersol 09:39:29 CDT CPT-J2550 Phenergan 25 mg (Promethazine) 13:59:02 CRM MANAGER CPT-J1885 Toradol 60 mg (Ketorolac) 13:59:02 CRM MANAGER 2012
--- OUTSIDE RECORDS SUMMARY | 2019-09-29 01:39 | XMS REPORT | Clinical Summary ---
Author Author Admin, Bethany Ayala [facility] Address Unknown Phone Unavailable Allergies, [...] gastritis, without menti on of hemorrhage FH DIABETES ICD-V18.0 Inactive Checo Conklin MD 201 08/27/26 CONCUSSION ICD-850.9 Inactive Checo Joshua UTI ICD-599.0 Inactive Checo Conklin MD 2013 FH BREAST CANCER ICD-V16.3 Inactive Checo Joshua ABDOMINAL PAIN RIGHT LOWER QUADRANT ICD-789.03 Inactive Checo Conklin MD HEADACHE, TENSION ICD-307.81 Inactive Checo Conklin MD OTITIS MEDIA-RIGHT ICD-382.9 Inactive Checo Conklin MD PHARYNGITIS ICD-462 Inactive Checo Conklin MD Insomnia ICD-780.52 Inactive Checo Joshua Breast mass, right ICD-611.72 Inactive Cehco Conklin MD Onychomycosis, toenails ICD-110.1 Inactive Aracelis Conklin MD Hypoglycemia, unspecified ICD-251.2 Inactive Checo Conklin MD Insect bite ICD-919.4 Inactive Checo Conklin MD Carbuncle/furuncle NOS ICD-680.9 Inactive Hilaria Conklin MD Mastalgia ICD-611.71 Inactive Checo Joshua Sinusitis ICD-461.9 Inactive Checo Conklin MD Knee pain, right [...] Urinary frequency ICD-788.41 Inactive Checo Conklin MD Abdominal pain ICD-789.00 Inactive Checo ngo MD Repeated falls ICD-781.99 Inactive Checo ngo MD Abdominal pain, generalized ICD-789.07 Inactive Checo Conklin MD Nausea ICD-787.02 Inactive Checo Conklin MD 201 02/15/12 Bacterial vaginosis ICD-616.10 Inactive Lenora Conklin MD Sinusitis, acute ICD-461.9 Inactive Checo Ortiz MD Medication List Medication Instructions Start Date Stop Date Generic Name NDC Status Provider Patient Instruction PAROXETINE HCL 40 MG ORAL TABLET 1 po qd PAR OXETINE HCL [id number] Active Checo Conklin MD Active MIRALAX ORAL POWDER 8.5 to 17g po qd PRN Constipation POLYETHYLENE GLYCOL 3350 25850936628 No Longer Active Checo Conklin MD Active PROTONIX 40 MG ORAL TABLET DELAYED RELEASE 1 pill by m outh daily, for acid reflux PANTOPRAZOLE SODIUM 71070580104 No Longer Activ e Corry Méndez LPN Active FLAGYL 500 MG ORAL TABLET 1 tablet by mouth bid 08/29 METRONIDAZOLE 53657280268 No Longer Active Corry Méndez LPN Active CLARITHROMYCIN 500 MG ORAL TABLET 1 tab po BID x 14 days CLARITHROMYCIN 75975728790 No Longer Active Corry Méndez LPN Active AMOXICILLIN 500 MG ORAL CAPSULE 2 po BID x 14 days for H. Pylori AMOXICILLIN 49531162590 No Longer Active Corry Méndez LPN Active FLUTICASONE PROPIONATE 50 MCG/ACT NASAL SUSPENSION 2 s prays/nostril qd PRN Congestion/Allergies FLUTICASONE PROPIONATE 5028111012 9 No Longer Active Checo Conklin MD Active AMOXICILLIN 500 MG ORAL CAPSULE 2 po BID x 10 days 201 01/15/27 AMOXICILLIN 71026688006 No Longer Active Checo Conklin MD Activ e CLARITIN 10 MG ORAL TABLET 1 tablet by mouth daily as needed for allergies LORATADINE 42326556078 No Longer Active Checo Ortiz MD Active BACTRIM DS 800-160 MG ORAL TABLET 1 tab by mouth twice daily 201 12/19/26 TRIMETHOPRIM-SULFAMETHOXAZOLE 08732192071 No Longer Active Ragini Carrillo MD Active DIFLUCAN 150 MG ORAL TABLET 1 tablet by mouth qod 2015 FLUCONAZOLE 00310519036 No Longer Active Efren Medel APRN Act mike AZITHROMYCIN 250 MG ORAL TABLET 2 po qd x 1 day, then 1 po q d x 4 days AZITHROMYCIN 54837488970 No Longer Active Efren flores APRN Active FLAGYL 500 MG ORAL TABLET 1 tablet by mouth bid 04/13 METRONIDAZOLE 22514300662 No Longer Active Checo Conklin MD Acti ve FOCALIN XR 10 MG ORAL CAPSULE EXTENDED RELEASE 24 HOUR 1 po q a.m. DEXMETHYLPHENIDATE HCL 22581149177 Active Checo Conklin MD Active MAGNESIUM CITRATE 1.745 GM/30ML ORAL SOLUTION 150ml po BID P RN Constipation MAGNESIUM CITRATE 05835240843 No Longer Active Checo Conklin MD Active BACTROBAN 2 % EXTERNAL CREAM Apply to affected area BID for up to 10 days MUPIROCIN CALCIUM 25344332089 No Longer Active Checo Conklin MD Active HYDROCODONE-ACETAMINOPHEN 5-325 MG ORAL TABLET 1 tab b y mouth every 6 hours as needed HYDROCODONE-ACETAMINOPHEN 54647894631 No Longer Active Checo Conklin MD Active IBUPROFEN 800 MG ORAL TABLET 1 tab every 8 hours with food 03/20 IBUPROFEN 76542984013 No Longer Active Checo Conklin MD Active DIFLUCAN 150 MG ORAL TABLET 1 tablet by mouth if neede d, hold until symptoms start FLUCONAZOLE 00196352837 No Longer Active Checo Conklin MD Active BACTRIM DS 800-160 MG ORAL TABLET 1 tab by mouth twice daily 201 11/23/03 TRIMETHOPRIM-SULFAMETHOXAZOLE 12337348686 No Longer Active K bernice Méndez LPN Active HYDROCODONE-ACETAMINOPHEN 5-325 MG ORAL TABLET 0.5 to 1 tab by mouth every 6 hours as needed HYDROCODONE-ACETAMINOPHEN 74899405178 No Longer Active Checo Conklin MD Active ONDANSETRON 8 MG ORAL TABLET DISINTEGRATING place one tablet on tongue and allow to dissolve every 6 hours as needed for vomitting ONDANSETRON 71922149918 No Longer Active Checo Conklin MD Activ e COMPRO 25 MG RECTAL SUPPOSITORY insert or apply one garza ppository rectally as directed every 12 hours as needed for nausea PROCHLORPERAZINE 79015718785 No Longer Active Checo Conklin MD A ctive SUMATRIPTAN SUCCINATE 100 MG ORAL TABLET Take one PRN for migran e SUMATRIPTAN SUCCINATE 35252559272 No Longer Active Checo Conklin MD Active TRAVEL SICKNESS 25 MG ORAL TABLET CHEWABLE chew and sw allow one tablet every 6 hours as needed MECLIZINE HCL 39242038249 No Longer A ctive Checo Conklin MD Active BUPROPION HCL ER (SR) 100 MG ORAL TABLET EXTENDED RELE ASE 12 HOUR take one tablet by mouth one time daily for one week then take 1 two times daily BUPROPION HCL 33953722719 No Longer Active Checo gallagher MD Active TERBINAFINE HCL 250 MG ORAL TABLET take one table PO one time da moises TERBINAFINE HCL 24207429951 No Longer Active Checo Conklin MD Active METOCLOPRAMIDE HCL 10 MG ORAL TABLET take one PO tid PRN nausea METOCLOPRAMIDE HCL 55812654895 No Longer Active Checo Conklin MD Active DICLOFENAC SODIUM 75 MG ORAL TABLET DELAYED RELEASE 1 tablet by mouth twice daily PRN Knee pain DICLOFENAC SODIUM 15472105288 No Longer Active Checo Conklin MD Active LAMISIL 250 MG ORAL TABLET 1 po qd TERBINAFI NE HCL 13230961282 No Longer Active Checo Conklin MD Active REGLAN 10 MG ORAL TABLET 1 po TID PRN Nausea 3 METOCLOPRAMIDE HCL 57724582841 No Longer Active Checo Conklin MD Active CELEXA 20 MG ORAL TABLET 1 tablet by mouth daily 09/26 CITALOPRAM HYDROBROMIDE 87366134278 No Longer Active Checo Conklin MD Active AZITHROMYCIN 250 MG ORAL TABLET 2 po qd x 1 day, then 1 po q d x 4 days AZITHROMYCIN 05490519118 No Longer Active Checo Ortiz MD Active HYDROCODONE-ACETAMINOPHEN 5-325 MG ORAL TABLET 1 po q 6hr PRN Pa in HYDROCODONE-ACETAMINOPHEN 80287782502 No Longer Active Lenora Conklin MD Active PHENAZOPYRIDINE HCL 200 MG ORAL TABLET take 1 tab po TID for bladder pain PHENAZOPYRIDINE HCL 79145731165 No Longer Active oJe Conklin MD Active CIPRO 500 MG ORAL TABLET 1 tablet by mouth twice daily CIPROFLOXACIN HCL 34409506754 No Longer Active Dangelo Rangel MD Active HYDROCODONE-ACETAMINOPHEN 5-325 MG ORAL TABLET 1/2 to 1 po q 4 hours prn cough HYDROCODONE-ACETAMINOPHEN 53443964994 No Longer Activ e Dangelo Rangel MD Active BACTRIM DS 800-160 MG ORAL TABLET 1 po BID x 7 days 29/04/10 SULFAMETHOXAZOLE-TRIMETHOPRIM 92289990595 No Longer Active Checo Conklin MD Active PREDNISONE 20 MG ORAL TABLET 2 tabs daily for 3 days, 1 tab daily for 3 days, 1/2 tab daily for 2 days PREDNISONE 87816316456 No Longer Active Checo Conklin MD Active TRIAMCINOLONE ACETONIDE 0.1 % EXTERNAL OINTMENT Apply to affected areas TID for up to 2 weeks TRIAMCINOLONE ACETONIDE 94565724945 No Longer Active Checo Conklin MD Active CEFDINIR 300 MG ORAL CAPSULE by mouth twice a day 2013 CEFDINIR 65079734991 No Longer Active Dangelo Rangel MD Acti ve BUPROPION HCL ER (SMOKING DET) 150 MG ORAL TABLET EXTE NDED RELEASE 12 HOUR 1 a day for 1 week then 1 twice a day BUPROPION HCL (SMOKING DETER) 12199934587 No Longer Active Checo Conklin MD Active SIMVASTATIN 20 MG ORAL TABLET 1 po qd SIMVASTAT IN 60568655527 Active Checo Conklin MD Active CHANTIX STARTING MONTH KARTHIK 0.5 MG X 11 & 1 MG X 42 ORA L TABLET 0.5mg daily for 3 days, then 0.5mg BID for 4 days, then 1mg BID VARENICLINE TARTRATE 89742898992 No Longer Active Checo Conklin MD Activ e XANAX 0.5 MG ORAL TABLET 1 po BID PRN anxiety A LPRAZOLAM 67199332101 Active Checo Conklin MD Active CONCERTA 18 MG ORAL TABLET EXTENDED RELEASE 1 po q a.m. METHYLPHENIDATE HCL 76416357654 No Longer Active Checo Conklin MD Active AMBIEN 5 MG ORAL TABLET 1 po qHS PRN Insomnia Z OLPIDEM TARTRATE 76572932401 Active Checo Conklin MD Active TRAZODONE HCL 100 MG ORAL TABLET 0.5 to 1 po qHS PRN Insomnia 20 30/07/08 TRAZODONE HCL 51353760939 No Longer Active Checo Conklin MD Active FIORICET 325-50-40 MG TAB 1 tablet by mouth four times daily as needed [id number]-[id number] 05110582922 No Longer Active Checo Conklin MD Active PHENERGAN CREAM* 25mg applied to wrist q6hr PRN Nausea PHENERGAN CREAM* No Longer Active Checo Conklin MD A ctive FLONASE 50 MCG/ACT NASAL SUSPENSION 1 spray each nostril am and hs FLUTICASONE PROPIONATE 32388290093 No Longer Active Checo Conklin MD Active ANTIPYRINE-BENZOCAINE 5.4-1.4 % OTIC SOLUTION 1-2 drops in affec yohannes ear BENZOCAINE-ANTIPYRINE 27743160197 No Longer Active Checo Conklin MD Active CEFDINIR 300 MG ORAL CAPSULE 1 po bid CEFDINIR 92512277003 No Longer Active Checo Conklin MD Active PREDNISONE 20 MG ORAL TABLET 2 tabs daily for 3 days, 1 tab daily for 3 days, 1/2 tab daily for 2 days PREDNISONE 95973717011 No Longer Active Checo Conklin MD Active AZITHROMYCIN 250 MG ORAL TABLET 2 po qd x 1 day, then 1 po q d x 4 days AZITHROMYCIN 83949748929 No Longer Active Checo rOtiz MD Active PREDNISONE 20 MG ORAL TABLET 2 tabs daily for 3 days, 1 tab daily for 3 days, 1/2 tab daily for 2 days PREDNISONE 47431969218 No Longer Active Checo Conklin MD Active ZITHROMAX Z-KARTHIK 250 MG ORAL TABLET 2 today, then 1 daily for 4 d ays AZITHROMYCIN 35341123292 No Longer Active Paul Hamlin MD Active FOCALIN XR 10 MG ORAL CAPSULE EXTENDED RELEASE 24 HOUR 1 po q a. m. DEXMETHYLPHENIDATE HCL 54870970684 No Longer Active Paul Hamlin MD Active PERCOCET 10-325 MG ORAL TABLET 1 tablet every 6 hours as needed for pain OXYCODONE-ACETAMINOPHEN 57003281069 No Longer Active Paul Hamlin MD Active LORTAB 5-500 MG ORAL TABLET 1/2 to 1 tablet by mouth e very 4 hours as needed for pain HYDROCODONE-ACETAMINOPHEN 52718124623 No Longer Active Checo Conklin MD Active FOCALIN XR 15 MG ORAL CAPSULE EXTENDED RELEASE 24 HOUR 1 po q a. m. DEXMETHYLPHENIDATE HCL 97760493973 No Longer Active Checo Conklin MD Active ZOFRAN ODT 4 MG ORAL TABLET DISINTEGRATING 1 po q6hr PRN Nausea ONDANSETRON 54525138795 No Longer Active Checo Conklin MD Active PERCOCET 5-325 MG ORAL TABLET 1 tablet by mouth every 6 hour s as needed OXYCODONE-ACETAMINOPHEN 68302383493 No Longer Active Checo Conklin MD Active PYRIDIUM 200 MG ORAL TABLET take 1 tab po TID prn urinary pain. PHENAZOPYRIDINE HCL 43845153045 No Longer Active Checo Joshua Active FLUCONAZOLE 150 MG ORAL TABLET take 1 tab po qday once FLUCONAZOLE 61233502752 No Longer Active Dangelo Rangel MD Acti ve CIPRO 500 MG ORAL TABLET 1 tablet by mouth twice daily CIPROFLOXACIN HCL 27579256137 No Longer Active Dangelo Rangel MD Active PYRIDIUM 200 MG ORAL TABLET take 1 tab po TID prn urinary pain. PYRIDIUM 200 MG ORAL TABLET 2383129 PHENAZOPYRIDINE HCL Inactive PERCOCET 5-325 MG ORAL TABLET 1 tablet by mouth every 6 hour s as needed PERCOCET 5-325 MG ORAL TABLET 0056573 OXYCODONE-ACETAMINOPHEN Inactive ZOFRAN ODT 4 MG ORAL TABLET DISINTEGRATING 1 po q6hr PRN Nausea ZOFRAN ODT 4 MG ORAL TABLET DISINTEGRATING 429222 ONDAN SETRON Inactive FOCALIN XR 15 MG ORAL CAPSULE EXTENDED RELEASE 24 HOUR 1 po q a. m. FOCALIN XR 15 MG ORAL CAPSULE EXTENDED RELEASE 24 HOUR DEXMETHYLPHENIDATE HCL Inactive LORTAB 5-500 MG ORAL TABLET 1/2 to 1 tablet by mouth e very 4 hours as needed for pain LORTAB 5-500 MG ORAL TABLET 578960 HYDROCODONE-ACETAMINOPHEN Inactive PERCOCET 10-325 MG ORAL TABLET 1 tablet every 6 hours as needed for pain PERCOCET 10-325 MG ORAL TABLET 0602105 OXYCODONE-ACETAMI NOPHEN Inactive FOCALIN XR 10 MG ORAL CAPSULE EXTENDED RELEASE 24 HOUR 1 po q a. m. FOCALIN XR 10 MG ORAL CAPSULE EXTENDED RELEASE 24 HOUR DEXMETHYLPHENIDATE HCL Inactive CEFDINIR 300 MG ORAL CAPSULE 1 po bid CEFDINI R 300 MG ORAL CAPSULE 981602 CEFDINIR Inactive ANTIPYRINE-BENZOCAINE 5.4-1.4 % OTIC SOLUTION 1-2 drops in affec yohannes ear ANTIPYRINE-BENZOCAINE 5.4-1.4 % OTIC SOLUTION 405058 BENZOCAINE-ANTIPYRINE Inactive FLONASE 50 MCG/ACT NASAL SUSPENSION 1 spray each nostril am and hs FLONASE 50 MCG/ACT NASAL SUSPENSION 1424048 FLUTICASONE PROPIONATE I nactive PHENERGAN CREAM* 25mg applied to wrist q6hr PRN Nausea PHENERGAN CREAM* Inactive FIORICET 325-50-40 MG TAB 1 tablet by mouth four times daily as needed FIORICET 325-50-40 MG TAB ACETAMINOPHEN-C AFF-BUTALBITAL Inactive TRAZODONE HCL 100 MG ORAL TABLET 0.5 to 1 po qHS PRN Insomnia 20 30/07/08 TRAZODONE HCL 100 MG ORAL TABLET 730665 TRAZODONE HCL Inactive CONCERTA 18 MG ORAL [...] cough HYDROCODONE-ACETAMINOPHEN 5-325 MG ORAL TABLET 8 21324 HYDROCODONE-ACETAMINOPHEN Inactive PHENAZOPYRIDINE HCL 200 MG ORAL TABLET take 1 tab po TID for bladder pain PHENAZOPYRIDINE HCL 200 MG ORAL TABLET 4056296 PHENAZOPYRIDINE HCL Inactive HYDROCODONE-ACETAMINOPHEN 5-325 MG ORAL TABLET 1 po q 6hr PRN Pa in HYDROCODONE-ACETAMINOPHEN 5-325 MG ORAL TABLET 614489 HYDROCODONE-ACETAMINOPHEN Inactive CELEXA 20 MG ORAL TABLET 1 tablet by mouth daily 09/26 CELEXA 20 MG ORAL TABLET 644888 CITALOPRAM HYDROBROMIDE Inactive REGLAN 10 MG ORAL TABLET 1 po TID PRN Nausea 3 REGLAN 10 MG ORAL TABLET 669862 METOCLOPRAMIDE HCL Inactive LAMISIL 250 MG ORAL TABLET 1 po qd L AMISIL 250 MG ORAL TABLET 392817 TERBINAFINE HCL Inactive DICLOFENAC SODIUM 75 MG ORAL TABLET DELAYED RELEASE 1 tablet by mouth twice daily PRN Knee pain DICLOFENAC SODIUM 75 MG ORAL TABLET DELAYED RELEASE 330563 DICLOFENAC SODIUM Inactive METOCLOPRAMIDE HCL 10 MG ORAL TABLET take one PO tid PRN nausea METOCLOPRAMIDE HCL 10 MG ORAL TABLET 643951 METOCLOPRAM ZACH HCL Inactive TERBINAFINE HCL 250 MG ORAL TABLET take one table PO one time da moises TERBINAFINE HCL 250 MG ORAL TABLET 592464 TERBINAFINE H CL Inactive BUPROPION HCL ER [...] SICKNESS 25 M G ORAL TABLET CHEWABLE 758779 MECLIZINE HCL Inactive SUMATRIPTAN SUCCINATE 100 MG ORAL TABLET Take one PRN for migran e SUMATRIPTAN SUCCINATE 100 MG ORAL TABLET 059699 SUMATRIPTAN SUCCINATE Inactive COMPRO 25 MG RECTAL SUPPOSITORY insert or apply one garza ppository rectally as directed every 12 hours as needed for nausea COMPRO 25 MG RECTAL SUPPOSITORY 656957 PROCHLORPERAZINE Inactive ONDANSETRON 8 MG ORAL TABLET DISINTEGRATING place one tablet on tongue and allow to dissolve every 6 hours as needed for vomitting ONDANSETRON 8 MG ORAL TABLET DISINTEGRATING 558487 ONDANSETRON Inactive HYDROCODONE-ACETAMINOPHEN 5-325 MG ORAL TABLET 0.5 to 1 tab by mouth every 6 hours as needed HYDROCODONE-ACETAMIN OPHEN 5-325 MG ORAL TABLET 294394 HYDROCODONE-ACETAMINOPHEN Inactive BACTRIM DS 800-160 MG ORAL TABLET 1 tab by mouth twice daily 201 11/23/03 BACTRIM DS 800-160 MG ORAL TABLET 947763 TRIMETHOPRIM-SULFAMETHOXAZOLE Inactive DIFLUCAN 150 MG ORAL TABLET [...] as needed HYDROCODONE-ACETAMINOPHEN 5-325 MG ORAL TABLET 472442 HYDROCODONE-ACETAMINOPHEN Inactive BACTROBAN 2 % EXTERNAL CREAM Apply to affected area BID for up to 10 days BACTROBAN 2 % EXTERNAL CREAM 821098 MUPIROCIN CA LCIUM Inactive MAGNESIUM CITRATE 1.745 GM/30ML ORAL SOLUTION 150ml po BID P RN Constipation MAGNESIUM CITRATE 1.745 GM/30ML ORAL SOLUTION 10 44682 MAGNESIUM CITRATE Inactive DIFLUCAN 150 MG ORAL TABLET 1 tablet by mouth qod 2015 DIFLUCAN 150 MG ORAL TABLET 067431 FLUCONAZOLE Inactive BACTRIM DS 800-160 MG ORAL TABLET 1 tab by mouth twice daily 201 12/19/26 BACTRIM DS 800-160 MG ORAL TABLET 358080 TRIMETHOPRIM-SULFAMETHOXAZOLE Inactive CLARITIN 10 MG ORAL TABLET 1 tablet by mouth daily as needed for allergies CLARITIN 10 MG ORAL TABLET 657441 LORATADINE I nactive FLUTICASONE PROPIONATE 50 MCG/ACT NASAL SUSPENSION 2 s prays/nostril qd PRN Congestion/Allergies FLUTICASONE PROPION ATE 50 MCG/ACT NASAL SUSPENSION 4794680 FLUTICASONE PROPIONATE Inactive MIRALAX ORAL POWDER 8.5 to 17g po qd PRN Constipation MIRALAX ORAL POWDER 931455 POLYETHYLENE GLYCOL 3350 Inactive CIPRO 500 MG ORAL TABLET 1 tablet by mouth twice daily CIPRO 500 MG ORAL TABLET 302714 CIPROFLOXACIN HCL Inactive FLUCONAZOLE 150 MG ORAL TABLET take 1 tab po qday once FLUCONAZOLE 150 MG ORAL TABLET 999614 FLUCONAZOLE Inactive ZITHROMAX Z-KARTHIK 250 MG ORAL TABLET 2 today, then 1 daily for 4 d ays ZITHROMAX Z-KARTHIK 250 MG ORAL TABLET 853466 AZITHROMYCIN Inactive PREDNISONE 20 MG ORAL TABLET 2 tabs daily for 3 days, 1 tab daily for 3 days, 1/2 tab daily for 2 days PREDNISONE 20 MG ORAL T ABLET 375877 PREDNISONE Inactive AZITHROMYCIN 250 MG ORAL TABLET 2 po qd x 1 day, then 1 po q d x 4 days AZITHROMYCIN 250 MG ORAL TABLET 203951 AZITHROMY SPARKLE Inactive PREDNISONE 20 MG ORAL TABLET 2 tabs daily for 3 days, 1 tab daily for 3 days, 1/2 tab daily for 2 days PREDNISONE 20 MG ORAL TABLET 016146 PREDNISONE Inactive CEFDINIR 300 MG ORAL CAPSULE by mouth twice a day 2013 CEFDINIR 300 MG ORAL CAPSULE 301957 CEFDINIR Inactive TRIAMCINOLONE ACETONIDE 0.1 % EXTERNAL OINTMENT Apply to affected areas TID for up to 2 weeks TRIAMCINOLONE ACETON ZACH 0.1 % EXTERNAL OINTMENT 0164843 TRIAMCINOLONE ACETONIDE Inactive PREDNISONE 20 MG ORAL TABLET 2 tabs daily for 3 days, 1 tab daily for 3 days, 1/2 tab daily for 2 days PREDNISONE 20 MG ORAL T ABLET 400385 PREDNISONE Inactive BACTRIM DS 800-160 MG ORAL TABLET 1 po BID x 7 days 29/04/10 BACTRIM DS 800-160 MG ORAL TABLET 367883 SULFAMETHOXAZOLE-TRIMETHOP RIM Inactive CIPRO 500 MG ORAL TABLET 1 tablet by mouth twice daily CIPRO 500 MG ORAL TABLET 293568 CIPROFLOXACIN HCL Inactive AZITHROMYCIN 250 MG ORAL TABLET 2 po qd x 1 day, then 1 po q d x 4 days AZITHROMYCIN 250 MG ORAL TABLET 341980 AZITHROMY SPARKLE Inactive FLAGYL 500 MG ORAL TABLET 1 tablet by mouth bid 04/13 FLAGYL 500 MG ORAL TABLET 464221 METRONIDAZOLE Inactive AZITHROMYCIN 250 MG ORAL TABLET 2 po qd x 1 day, then 1 po q d x 4 days AZITHROMYCIN 250 MG ORAL TABLET 863959 AZITHROMY SPARKLE Inactive AMOXICILLIN 500 MG ORAL CAPSULE 2 po BID x 10 days 201 01/15/27 AMOXICILLIN 500 MG ORAL CAPSULE 262375 AMOXICILLIN Inactive AMOXICILLIN 500 MG ORAL CAPSULE 2 po BID x 14 days for H. Pylori AMOXICILLIN 500 MG ORAL CAPSULE 973626 AMOXICILLIN Inactive CLARITHROMYCIN 500 MG ORAL TABLET 1 tab po BID x 14 days CLARITHROMYCIN 500 MG ORAL TABLET 786840 CLARITHROMYCIN Inacti ve FLAGYL 500 MG ORAL TABLET 1 tablet by mouth bid 08/29 FLAGYL 500 MG ORAL TABLET 426695 METRONIDAZOLE Inactive PROTONIX 40 MG ORAL TABLET DELAYED RELEASE 1 pill by m outh daily, for acid reflux PROTONIX 40 MG ORAL TABLET DELAYED RELEAS E 382936 PANTOPRAZOLE SODIUM Inactive Immunizations Vaccine Administration Date [...] PANEL - Chemistry cholesterol, serum 192 mg/dL 257-839 3377/02/20 HDL cholesterol, serum 31 mg/dL > OR [...] 11 .0-15.0 platelet count 218 THOUSAND/UL 10*3/mm3 846-923 6643/02/20 mean platelet volume 9.7 fL 7.5-12.5 Lab Report: Comp. Metabolic Panel, Eryth rocyte Sed Rate, UADIP W/MICRO, ... - Chemistry protein, total urine random Negative mg/dL Negative sodium, serum 139 mmol/L 248-688 6376/11/28 carbon dioxide, venous blood 26.0 mmol/L 21.0-32 [...] Negative Encounters Code Encounter Date Provider Facility CPT-95160 Level 4 Est. Patient 08:57:51 PHOTOCOPYING EQUIPMENT MECHANIC Checo Conklin MD [facility] CPT-49853 Level 3 Est. Patient 11:24:55 PHOTOCOPYING EQUIPMENT MECHANIC Efren almendarez APRN [facility] CPT-30163 Level 3 Est. Patient 13:05:44 CDT Paul Hamlin MD [facility] CPT-07028 Level 3 Est. Patient 11:29:55 CDT Checo Conklin MD [facility] CPT-73072 Level 4 Est. Patient 11:08:12 PHOTOCOPYING EQUIPMENT MECHANIC Checo Conklin MD [facility] CPT-67045 Level 4 Est. Patient 16:06:48 PHOTOCOPYING EQUIPMENT MECHANIC Checo Conklin MD [facility] CPT-45892 Level 3 Est. Patient 09:11:49 CDT Efren almendarez [facility] [place] CPT-96539 Level 2 Est. Patient 19:53:27 CDT Tanner hill MD [facility] CPT-09743 Level 3 Est. Patient 09:15:34 CDT Efren almendarez [facility] [place] CPT-75516 Level 3 Est. Patient 11:28:51 PHOTOCOPYING EQUIPMENT MECHANIC Efren almendarez [facility] [place] CPT-47772 Level 4 Est. Patient 13:55:46 PHOTOCOPYING EQUIPMENT MECHANIC Checo Conklin MD [facility] CPT-31499 Level 4 Est. Patient 17:10:53 CDT Checo Conklin MD [facility] CPT-08839 Level 3 Est. Patient 15:56:22 CDT Checo Conklin MD [facility] CPT-13898 Level 3 Est. Patient 15:29:07 CDT Checo Conklin MD [facility] CPT-51000 Level 3 Est. Patient 14:38:41 CDT Checo Conklin MD [facility] CPT-15839 Level 3 Est. Patient 15:22:03 PHOTOCOPYING EQUIPMENT MECHANIC Thomas reynolds DO [facility] CPT-47865 Level 3 Est. Patient 13:34:17 PHOTOCOPYING EQUIPMENT MECHANIC Checo Conklin MD [facility] CPT-72823 Level 3 Est. Patient 12:29:32 CDT Dangelo arroyo MD [facility] CPT-67437 Level 3 Est. Patient 16:53:02 CDT Checo Conklin MD [facility] CPT-62007 Level 3 Est. Patient 16:37:13 CDT Checo Conklin MD [facility] CPT-10047 Level 3 Est. Patient 16:16:59 CDT Paul Hamlin MD [facility] CPT-59257 Level 3 Est. Patient 14:20:13 CDT Dangelo arroyo MD [facility] CPT-36526 Level 4 Est. Patient 11:29:33 CDT Checo Conklin MD [facility] CPT-47238 Level 3 Est. Patient 17:08:31 CDT Checo Conklin MD [facility] CPT-90876 Level 3 Est. Patient 16:50:42 PHOTOCOPYING EQUIPMENT MECHANIC Checo Conklin MD [facility] CPT-01472 Level 4 Est. Patient 09:26:08 PHOTOCOPYING EQUIPMENT MECHANIC Checo Conklin MD [facility] CPT-44564 Level 3 Est. Patient 11:37:10 CDT Checo Conklin MD [facility] CPT-01539 Level 4 Est. Patient 14:07:38 CDT Checo Conklin MD [facility] CPT-34288 Level 3 Est. Patient 09:54:41 CDT Checo Conklin MD [facility] CPT-44765 Level 3 Est. Patient 11:10:54 CDT Paul Hamlin MD [facility] CPT-42719 Level 3 Est. Patient 14:16:56 PHOTOCOPYING EQUIPMENT MECHANIC Checo Conklin MD [facility] CPT-46893 Level 3 Est. Patient 11:04:11 PHOTOCOPYING EQUIPMENT MECHANIC Checo Conklin MD [facility] CPT-81201 Level 3 Est. Patient 17:09:26 CDT Dangelo arroyo MD [facility] CPT-02099 Level 3 Est. Patient 16:54:37 CDT Checo Conklin MD [facility] Procedures Code Procedure Name Date Entry Date Standard Desc ription CPT-06882 Abd compl w upright - XRAY USE ONLY 1 1:36:54 PHOTOCOPYING EQUIPMENT MECHANIC CPT-89461 UA w micro - LAB USE ONLY 17:06:46 CDT 2015 CPT-92293 [facility] Qual - LAB USE ONLY 17:06:46 CDT 05/06 CPT-10850 CMP - LAB USE ONLY 17:06:46 CDT CPT-03381 CBC with Diff - LAB USE ONLY 17:06:45 CDT 2 CPT-00487 Venipuncture Draw Fee 17:06:45 CDT CPT-LR Lesion Removal 19:53:27 CDT CPT-OV Office Visit 11:31:28 CDT CPT-35832 Tubersol 09:39:29 CDT CPT-J2550 Phenergan 25 mg (Promethazine) 13:59:02 PHOTOCOPYING EQUIPMENT MECHANIC CPT-J1885 Toradol 60 mg (Ketorolac) 13:59:02 PHOTOCOPYING EQUIPMENT MECHANIC 2012
--- OUTSIDE RECORDS SUMMARY | 2019-09-29 01:40 | XMS REPORT | Clinical Summary ---
Author Author Admin, Bethany Ayala Informous [facility] Address Unknown Phone Unavailable Allergies, Adverse Reactions, [...] Acute pharyngitis TOBACCO ABUSE 305.1 Inactive Paul Hamlni MD Tobacco use disorder Tobacco user 305.1 [...] Abdominal pain, generalized 789.07 Active Efren Medel [employer]HOU[employer]IC[employer] Abdominal pain, generalized Nausea 787.02 Active Efren [...] outh daily, for acid reflux PANTOPRAZOLE SODIUM 90699009186 Active Fan Méndez LPN Active FLAGYL 500 MG ORAL TABLET 1 tablet by mouth bid 08/29 METRONIDAZOLE 95224125425 Active Corry Méndez LPN Acti ve CLARITHROMYCIN 500 MG ORAL TABLET 1 tab po BID x 14 days CLARITHROMYCIN 45912202012 Active Corry Méndez LPN Act mike AMOXICILLIN 500 MG ORAL CAPSULE 2 po BID x 14 days for H. Pylori AMOXICILLIN 48469134422 Active Corry Méndez LPN Active PAROXETINE HCL 20 MG ORAL TABLET 1.5 po qd PAR OXETINE HCL 47320871390 Active Checo Conklin MD Active FLUTICASONE PROPIONATE 50 MCG/ACT NASAL SUSPENSION 2 s prays/nostril qd PRN Congestion/Allergies FLUTICASONE PROPIONATE 3145058992 9 No Longer Active Checo Conklin MD Active AMOXICILLIN 500 MG ORAL CAPSULE 2 po BID x 10 days 201 01/15/27 AMOXICILLIN 86432309218 No Longer Active Checo Conklni MD Activ e MIRALAX ORAL POWDER 8.5 to 17g po qd PRN Constipation POLYETHYLENE GLYCOL 3350 50685119564 Active Checo Conklin MD Active CLARITIN 10 MG ORAL TABLET 1 tablet by mouth daily as needed for allergies LORATADINE 35687418578 No Longer Active Checo Ortiz MD Active BACTRIM DS 800-160 MG ORAL TABLET 1 tab by mouth twice daily 201 12/19/26 TRIMETHOPRIM-SULFAMETHOXAZOLE 32917616235 No Longer Active Ragini Carrillo MD Active DIFLUCAN 150 MG ORAL TABLET 1 tablet by mouth qod 2015 FLUCONAZOLE 04761861189 No Longer Active Efren Medel [employer]HOU[employer] Act mike AZITHROMYCIN 250 MG ORAL TABLET 2 po qd x 1 day, then 1 po q d x 4 days AZITHROMYCIN 91859233184 No Longer Active Efren flores [employer]HOU[employer]ICIAN Active FLAGYL 500 MG ORAL TABLET 1 tablet by mouth bid 04/13 METRONIDAZOLE 15043220895 No Longer Active Checo Conklin MD Acti ve FOCALIN XR 10 MG ORAL CAPSULE EXTENDED RELEASE 24 HOUR 1 po q a.m. DEXMETHYLPHENIDATE HCL 90104799678 Active Checo Conklin MD Active MAGNESIUM CITRATE 1.745 GM/30ML ORAL SOLUTION 150ml po BID P RN Constipation MAGNESIUM CITRATE 51898749200 No Longer Active Checo Conklin MD Active BACTROBAN 2 % EXTERNAL CREAM Apply to affected area BID for up to 10 days MUPIROCIN CALCIUM 29837128413 No Longer Active Cehco Conklin MD Active HYDROCODONE-ACETAMINOPHEN 5-325 MG ORAL TABLET 1 tab b y mouth every 6 hours as needed HYDROCODONE-ACETAMINOPHEN 64140449928 No Longer Active Checo Conklin MD Active IBUPROFEN 800 MG ORAL TABLET 1 tab every 8 hours with food 03/20 IBUPROFEN 79029844816 No Longer Active Checo Conklin MD Active DIFLUCAN 150 MG ORAL TABLET 1 tablet by mouth if neede d, hold until symptoms start FLUCONAZOLE 28757201879 No Longer Active Checo Conklin MD Active BACTRIM DS 800-160 MG ORAL TABLET 1 tab by mouth twice daily 201 11/23/03 TRIMETHOPRIM-SULFAMETHOXAZOLE 34705170525 No Longer Active K bernice Méndez LPN Active HYDROCODONE-ACETAMINOPHEN 5-325 MG ORAL TABLET 0.5 to 1 tab by mouth every 6 hours as needed HYDROCODONE-ACETAMINOPHEN 02928387920 No Longer Active Checo Conklin MD Active ONDANSETRON 8 MG ORAL TABLET DISINTEGRATING place one tablet on tongue and allow to dissolve every 6 hours as needed for vomitting ONDANSETRON 41999739570 No Longer Active Checo Conklin MD Activ e COMPRO 25 MG RECTAL SUPPOSITORY insert or apply one garza ppository rectally as directed every 12 hours as needed for nausea PROCHLORPERAZINE 07394620993 No Longer Active Checo Conklin MD A ctive SUMATRIPTAN SUCCINATE 100 MG ORAL TABLET Take one PRN for migran e SUMATRIPTAN SUCCINATE 35504823429 No Longer Active Checo Conklin MD Active TRAVEL SICKNESS 25 MG ORAL TABLET CHEWABLE chew and sw allow one tablet every 6 hours as needed MECLIZINE HCL 16632030118 No Longer A ctive Checo Conklin MD Active BUPROPION HCL ER (SR) 100 MG ORAL TABLET EXTENDED RELE ASE 12 HOUR take one tablet by mouth one time daily for one week then take 1 two times daily BUPROPION HCL 67309519784 No Longer Active Checo gallagher MD Active TERBINAFINE HCL 250 MG ORAL TABLET take one table PO one time da moises TERBINAFINE HCL 74385821329 No Longer Active Checo Conklin MD Active METOCLOPRAMIDE HCL 10 MG ORAL TABLET take one PO tid PRN nausea METOCLOPRAMIDE HCL 22560767094 No Longer Active Checo Conklin MD Active DICLOFENAC SODIUM 75 MG ORAL TABLET DELAYED RELEASE 1 tablet by mouth twice daily PRN Knee pain DICLOFENAC SODIUM 81878514248 No Longer Active Checo Conklin MD Active LAMISIL 250 MG ORAL TABLET 1 po qd TERBINAFI NE HCL 87734756348 No Longer Active Checo Conklin MD Active REGLAN 10 MG ORAL TABLET 1 po TID PRN Nausea 3 METOCLOPRAMIDE HCL 70300353376 No Longer Active Checo Conklin MD Active CELEXA 20 MG ORAL TABLET 1 tablet by mouth daily 09/26 CITALOPRAM HYDROBROMIDE 85495495397 No Longer Active Checo Conklin MD Active AZITHROMYCIN 250 MG ORAL TABLET 2 po qd x 1 day, then 1 po q d x 4 days AZITHROMYCIN 24350989489 No Longer Active Checo Ortiz MD Active HYDROCODONE-ACETAMINOPHEN 5-325 MG ORAL TABLET 1 po q 6hr PRN Pa in HYDROCODONE-ACETAMINOPHEN 69299096614 No Longer Active Lenora Conklin MD Active PHENAZOPYRIDINE HCL 200 MG ORAL TABLET take 1 tab po TID for bladder pain PHENAZOPYRIDINE HCL 88204871429 No Longer Active Joe Conklin MD Active CIPRO 500 MG ORAL TABLET 1 tablet by mouth twice daily CIPROFLOXACIN HCL 40845692980 No Longer Active Dangelo Rangel MD Active HYDROCODONE-ACETAMINOPHEN 5-325 MG ORAL TABLET 1/2 to 1 po q 4 hours prn cough HYDROCODONE-ACETAMINOPHEN 80508143609 No Longer Activ candy Rangel MD Active BACTRIM DS 800-160 MG ORAL TABLET 1 po BID x 7 days 29/04/10 SULFAMETHOXAZOLE-TRIMETHOPRIM 54068002252 No Longer Active Checo Conklin MD Active PREDNISONE 20 MG ORAL TABLET 2 tabs daily for 3 days, 1 tab daily for 3 days, 1/2 tab daily for 2 days PREDNISONE 33253893030 No Longer Active Checo Conklin MD Active TRIAMCINOLONE ACETONIDE 0.1 % EXTERNAL OINTMENT Apply to affected areas TID for up to 2 weeks TRIAMCINOLONE ACETONIDE 39884756128 No Longer Active Checo Conklin MD Active CEFDINIR 300 MG ORAL CAPSULE by mouth twice a day 2013 CEFDINIR 97829371702 No Longer Active Dangelo Rangel MD Acti ve BUPROPION HCL ER (SMOKING DET) 150 MG ORAL TABLET EXTE NDED RELEASE 12 HOUR 1 a day for 1 week then 1 twice a day BUPROPION HCL (SMOKING DETER) 54650430990 No Longer Active Checo Conklin MD Active SIMVASTATIN 20 MG ORAL TABLET 1 po qd SIMVASTAT IN 42127324830 Active Checo Conklin MD Active CHANTIX STARTING MONTH KARTHIK 0.5 MG X 11 & 1 MG X 42 ORA L TABLET 0.5mg daily for 3 days, then 0.5mg BID for 4 days, then 1mg BID VARENICLINE TARTRATE 01742461085 No Longer Active Checo Conklin MD Activ e XANAX 0.5 MG ORAL TABLET 1 po BID PRN anxiety A LPRAZOLAM 96857851151 Active Checo Conklin MD Active CONCERTA 18 MG ORAL TABLET EXTENDED RELEASE 1 po q a.m. METHYLPHENIDATE HCL 83858205877 No Longer Active Checo Conklin MD Active AMBIEN 5 MG ORAL TABLET 1 po qHS PRN Insomnia Z OLPIDEM TARTRATE 93038923244 Active Checo Conklin MD Active TRAZODONE HCL 100 MG ORAL TABLET 0.5 to 1 po qHS PRN Insomnia 20 30/07/08 TRAZODONE HCL 56598172191 No Longer Active Checo Cnoklin MD Active FIORICET 325-50-40 MG TAB 1 tablet by mouth four times daily as needed [id number] 86156539670 No Longer Active Checo Conklin MD Active PHENERGAN CREAM* 25mg applied to wrist q6hr PRN Nausea PHENERGAN CREAM* No Longer Active Checo Conklin MD A ctive FLONASE 50 MCG/ACT NASAL SUSPENSION 1 spray each nostril am and hs FLUTICASONE PROPIONATE 29393053526 No Longer Active Checo Conklin MD Active ANTIPYRINE-BENZOCAINE 5.4-1.4 % OTIC SOLUTION 1-2 drops in affec yohannes ear BENZOCAINE-ANTIPYRINE 21176988595 No Longer Active Checo Conklin MD Active CEFDINIR 300 MG ORAL CAPSULE 1 po bid CEFDINIR 57108119892 No Longer Active Checo Conklin MD Active PREDNISONE 20 MG ORAL TABLET 2 tabs daily for 3 days, 1 tab daily for 3 days, 1/2 tab daily for 2 days PREDNISONE 52727678783 No Longer Active Checo Conklin MD Active AZITHROMYCIN 250 MG ORAL TABLET 2 po qd x 1 day, then 1 po q d x 4 days AZITHROMYCIN 57543831784 No Longer Active Checo Ortiz MD Active PREDNISONE 20 MG ORAL TABLET 2 tabs daily for 3 days, 1 tab daily for 3 days, 1/2 tab daily for 2 days PREDNISONE 20409925491 No Longer Active Checo Conklin MD Active ZITHROMAX Z-KARTHIK 250 MG ORAL TABLET 2 today, then 1 daily for 4 d ays AZITHROMYCIN 67990470696 No Longer Active Paul Hamlin MD Active FOCALIN XR 10 MG ORAL CAPSULE EXTENDED RELEASE 24 HOUR 1 po q a. m. DEXMETHYLPHENIDATE HCL 29822603192 No Longer Active Paul Hamlin MD Active PERCOCET 10-325 MG ORAL TABLET 1 tablet every 6 hours as needed for pain OXYCODONE-ACETAMINOPHEN 95127787178 No Longer Active Paul Hamlin MD Active LORTAB 5-500 MG ORAL TABLET 1/2 to 1 tablet by mouth e very 4 hours as needed for pain HYDROCODONE-ACETAMINOPHEN 33661098434 No Longer Active Checo Conklin MD Active FOCALIN XR 15 MG ORAL CAPSULE EXTENDED RELEASE 24 HOUR 1 po q a. m. DEXMETHYLPHENIDATE HCL 35995472680 No Longer Active Checo Conklin MD Active ZOFRAN ODT 4 MG ORAL TABLET DISINTEGRATING 1 po q6hr PRN Nausea ONDANSETRON 83534851908 No Longer Active Checo Conklin MD Active PERCOCET 5-325 MG ORAL TABLET 1 tablet by mouth every 6 hour s as needed OXYCODONE-ACETAMINOPHEN 99038244441 No Longer Active Checo Conklin MD Active PYRIDIUM 200 MG ORAL TABLET take 1 tab po TID prn urinary pain. PHENAZOPYRIDINE HCL 26495476049 No Longer Active Checo Joshua Active FLUCONAZOLE 150 MG ORAL TABLET take 1 tab po qday once FLUCONAZOLE 53712584876 No Longer Active Dangelo Rangel MD Acti ve CIPRO 500 MG ORAL TABLET 1 tablet by mouth twice daily CIPROFLOXACIN HCL 46481424244 No Longer Active Dangelo Rangel MD Active PYRIDIUM 200 MG ORAL TABLET take 1 tab po TID prn urinary pain. PYRIDIUM 200 MG ORAL TABLET 2228946 PHENAZOPYRIDINE HCL Inactive PERCOCET 5-325 MG ORAL TABLET 1 tablet by mouth every 6 hour s as needed PERCOCET 5-325 MG ORAL TABLET 9745977 OXYCODONE-ACETAMINOPHEN Inactive ZOFRAN ODT 4 MG ORAL TABLET DISINTEGRATING 1 po q6hr PRN Nausea ZOFRAN ODT 4 MG ORAL TABLET DISINTEGRATING 735024 ONDAN SETRON Inactive FOCALIN XR 15 MG ORAL CAPSULE EXTENDED RELEASE 24 HOUR 1 po q a. m. FOCALIN XR 15 MG ORAL CAPSULE EXTENDED RELEASE 24 HOUR DEXMETHYLPHENIDATE HCL Inactive LORTAB 5-500 MG ORAL TABLET 1/2 to 1 tablet by mouth e very 4 hours as needed for pain LORTAB 5-500 MG ORAL TABLET 614927 HYDROCODONE-ACETAMINOPHEN Inactive PERCOCET 10-325 MG ORAL TABLET 1 tablet every 6 hours as needed for pain PERCOCET 10-325 MG ORAL TABLET 6518559 OXYCODONE-ACETAMI NOPHEN Inactive FOCALIN XR 10 MG ORAL CAPSULE EXTENDED RELEASE 24 HOUR 1 po q a. m. FOCALIN XR 10 MG ORAL CAPSULE EXTENDED RELEASE 24 HOUR DEXMETHYLPHENIDATE HCL Inactive CEFDINIR 300 MG ORAL CAPSULE 1 po bid CEFDINI R 300 MG ORAL CAPSULE 149337 CEFDINIR Inactive ANTIPYRINE-BENZOCAINE 5.4-1.4 % OTIC SOLUTION 1-2 drops in affec yohannes ear ANTIPYRINE-BENZOCAINE 5.4-1.4 % OTIC SOLUTION 226447 BENZOCAINE-ANTIPYRINE Inactive FLONASE 50 MCG/ACT NASAL SUSPENSION 1 spray each nostril am and hs FLONASE 50 MCG/ACT NASAL SUSPENSION 2143863 FLUTICASONE PROPIONATE I nactive PHENERGAN CREAM* 25mg applied to wrist q6hr PRN Nausea PHENERGAN CREAM* Inactive FIORICET 325-50-40 MG TAB 1 tablet by mouth four times daily as needed FIORICET 325-50-40 MG TAB ACETAMINOPHEN-C AFF-BUTALBITAL Inactive TRAZODONE HCL 100 MG ORAL TABLET 0.5 to 1 po qHS PRN Insomnia 20 30/07/08 TRAZODONE HCL 100 MG ORAL TABLET 189935 TRAZODONE HCL Inactive CONCERTA 18 MG ORAL [...] cough HYDROCODONE-ACETAMINOPHEN 5-325 MG ORAL TABLET 8 00709 HYDROCODONE-ACETAMINOPHEN Inactive PHENAZOPYRIDINE HCL 200 MG ORAL TABLET take 1 tab po TID for bladder pain PHENAZOPYRIDINE HCL 200 MG ORAL TABLET 2230538 PHENAZOPYRIDINE HCL Inactive HYDROCODONE-ACETAMINOPHEN 5-325 MG ORAL TABLET 1 po q 6hr PRN Pa in HYDROCODONE-ACETAMINOPHEN 5-325 MG ORAL TABLET 547994 HYDROCODONE-ACETAMINOPHEN Inactive CELEXA 20 MG ORAL TABLET 1 tablet by mouth daily 09/26 CELEXA 20 MG ORAL TABLET 780573 CITALOPRAM HYDROBROMIDE Inactive REGLAN 10 MG ORAL TABLET 1 po TID PRN Nausea 3 REGLAN 10 MG ORAL TABLET 256225 METOCLOPRAMIDE HCL Inactive LAMISIL 250 MG ORAL TABLET 1 po qd L AMISIL 250 MG ORAL TABLET 246759 TERBINAFINE HCL Inactive DICLOFENAC SODIUM 75 MG ORAL TABLET DELAYED RELEASE 1 tablet by mouth twice daily PRN Knee pain DICLOFENAC SODIUM 75 MG ORAL TABLET DELAYED RELEASE 487697 DICLOFENAC SODIUM Inactive METOCLOPRAMIDE HCL 10 MG ORAL TABLET take one PO tid PRN nausea METOCLOPRAMIDE HCL 10 MG ORAL TABLET 870448 METOCLOPRAM ZACH HCL Inactive TERBINAFINE HCL 250 MG ORAL TABLET take one table PO one time da moises TERBINAFINE HCL 250 MG ORAL TABLET 371113 TERBINAFINE H CL Inactive BUPROPION HCL ER [...] SICKNESS 25 M G ORAL TABLET CHEWABLE 289522 MECLIZINE HCL Inactive SUMATRIPTAN SUCCINATE 100 MG ORAL TABLET Take one PRN for migran e SUMATRIPTAN SUCCINATE 100 MG ORAL TABLET 054593 SUMATRIPTAN SUCCINATE Inactive COMPRO 25 MG RECTAL SUPPOSITORY insert or apply one garza ppository rectally as directed every 12 hours as needed for nausea COMPRO 25 MG RECTAL SUPPOSITORY 700522 PROCHLORPERAZINE Inactive ONDANSETRON 8 MG ORAL TABLET DISINTEGRATING place one tablet on tongue and allow to dissolve every 6 hours as needed for vomitting ONDANSETRON 8 MG ORAL TABLET DISINTEGRATING 605655 ONDANSETRON Inactive HYDROCODONE-ACETAMINOPHEN 5-325 MG ORAL TABLET 0.5 to 1 tab by mouth every 6 hours as needed HYDROCODONE-ACETAMIN OPHEN 5-325 MG ORAL TABLET 713174 HYDROCODONE-ACETAMINOPHEN Inactive BACTRIM DS 800-160 MG ORAL TABLET 1 tab by mouth twice daily 201 11/23/03 BACTRIM DS 800-160 MG ORAL TABLET 021283 TRIMETHOPRIM-SULFAMETHOXAZOLE Inactive DIFLUCAN 150 MG ORAL TABLET 1 tablet by mouth if neede d, hold until symptoms start DIFLUCAN 150 MG ORAL TABLET 978997 FLUCONAZ OLE Inactive IBUPROFEN 800 MG ORAL TABLET 1 tab every 8 hours with food 03/20 IBUPROFEN 800 MG ORAL TABLET 256009 IBUPROFEN Krupa ctive HYDROCODONE-ACETAMINOPHEN 5-325 MG ORAL TABLET 1 tab b y mouth every 6 hours as needed HYDROCODONE-ACETAMINOPHEN 5-325 MG ORAL TABLET 877341 HYDROCODONE-ACETAMINOPHEN Inactive BACTROBAN 2 % EXTERNAL CREAM Apply to affected area BID for up to 10 days BACTROBAN 2 % EXTERNAL CREAM 102625 MUPIROCIN CA LCIUM Inactive MAGNESIUM CITRATE 1.745 GM/30ML ORAL SOLUTION 150ml po BID P RN Constipation MAGNESIUM CITRATE 1.745 GM/30ML ORAL SOLUTION 10 30074 MAGNESIUM CITRATE Inactive DIFLUCAN 150 MG ORAL TABLET 1 tablet by mouth qod 2015 DIFLUCAN 150 MG ORAL TABLET 630411 FLUCONAZOLE Inactive BACTRIM DS 800-160 MG ORAL TABLET 1 tab by mouth twice daily 201 12/19/26 BACTRIM DS 800-160 MG ORAL TABLET 241073 TRIMETHOPRIM-SULFAMETHOXAZOLE Inactive CLARITIN 10 MG ORAL TABLET 1 tablet by mouth daily as needed for allergies CLARITIN 10 MG ORAL TABLET 500722 LORATADINE I nactive FLUTICASONE PROPIONATE 50 MCG/ACT NASAL SUSPENSION 2 s prays/nostril qd PRN Congestion/Allergies FLUTICASONE PROPION ATE 50 MCG/ACT NASAL SUSPENSION 6451076 FLUTICASONE PROPIONATE Inactive CIPRO 500 MG ORAL TABLET 1 tablet by mouth twice daily CIPRO 500 MG ORAL TABLET 886433 CIPROFLOXACIN HCL Inactive FLUCONAZOLE 150 MG ORAL TABLET take 1 tab po qday once FLUCONAZOLE 150 MG ORAL TABLET 918085 FLUCONAZOLE Inactive ZITHROMAX Z-KARTHIK 250 MG ORAL TABLET 2 today, then 1 daily for 4 d ays ZITHROMAX Z-KARTHIK 250 MG ORAL TABLET 777259 AZITHROMYCIN Inactive PREDNISONE 20 MG ORAL TABLET 2 tabs daily for 3 days, 1 tab daily for 3 days, 1/2 tab daily for 2 days PREDNISONE 20 MG ORAL T ABLET 944466 PREDNISONE Inactive AZITHROMYCIN 250 MG ORAL TABLET 2 po qd x 1 day, then 1 po q d x 4 days AZITHROMYCIN 250 MG ORAL TABLET 746862 AZITHROMY SPARKLE Inactive PREDNISONE 20 MG ORAL TABLET 2 tabs daily for 3 days, 1 tab daily for 3 days, 1/2 tab daily for 2 days PREDNISONE 20 MG ORAL TABLET 782702 PREDNISONE Inactive CEFDINIR 300 MG ORAL CAPSULE by mouth twice a day 2013 CEFDINIR 300 MG ORAL CAPSULE 200824 CEFDINIR Inactive TRIAMCINOLONE ACETONIDE 0.1 % EXTERNAL OINTMENT Apply to affected areas TID for up to 2 weeks TRIAMCINOLONE ACETON ZACH 0.1 % EXTERNAL OINTMENT 3958759 TRIAMCINOLONE ACETONIDE Inactive PREDNISONE 20 MG ORAL TABLET 2 tabs daily for 3 days, 1 tab daily for 3 days, 1/2 tab daily for 2 days PREDNISONE 20 MG ORAL T ABLET 991580 PREDNISONE Inactive BACTRIM DS 800-160 MG ORAL TABLET 1 po BID x 7 days 29/04/10 BACTRIM DS 800-160 MG ORAL TABLET 219198 SULFAMETHOXAZOLE-TRIMETHOP RIM Inactive CIPRO 500 MG ORAL TABLET 1 tablet by mouth twice daily CIPRO 500 MG ORAL TABLET 635513 CIPROFLOXACIN HCL Inactive AZITHROMYCIN 250 MG ORAL TABLET 2 po qd x 1 day, then 1 po q d x 4 days AZITHROMYCIN 250 MG ORAL TABLET 695891 AZITHROMY SPARKLE Inactive FLAGYL 500 MG ORAL TABLET 1 tablet by mouth bid 04/13 FLAGYL 500 MG ORAL TABLET 754135 METRONIDAZOLE Inactive AZITHROMYCIN 250 MG ORAL TABLET 2 po qd x 1 day, then 1 po q d x 4 days AZITHROMYCIN 250 MG ORAL TABLET 763010 AZITHROMY SPARKLE Inactive AMOXICILLIN 500 MG ORAL CAPSULE 2 po BID x 10 days 201 01/15/27 AMOXICILLIN 500 MG ORAL CAPSULE 035070 AMOXICILLIN Inactive Immunizations Vaccine Administration Date Value [...] PANEL - Chemistry cholesterol, serum 192 mg/dL 649-666 8948/02/20 HDL cholesterol, serum 31 mg/dL > OR [...] 11 .0-15.0 platelet count 218 THOUSAND/UL 10*3/mm3 231-389 9525/02/20 mean platelet volume 9.7 fL 7.5-12.5 Lab Report: Comp. Metabolic Panel, Eryth rocyte Sed Rate, UADIP W/MICRO, ... - Chemistry protein, total urine random Negative mg/dL Negative sodium, serum 139 mmol/L 413-747 1984/11/28 carbon dioxide, venous blood 26.0 mmol/L 21.0-32 [...] Negative Encounters Code Encounter Date Provider Facility CPT-63519 Level 3 Est. 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 Patient 13:05:44 CDT Paul Hamlin MD [facility] CPT-68687 Level 3 Est. Patient 11:29:55 CDT Checo Conklin MD [facility] CPT-20741 Level 4 Est. Patient 11:08:12 EXPANDING MACHINE OPERATOR Checo Conklin MD [facility] CPT-67620 Level 4 Est. Patient 16:06:48 EXPANDING MACHINE OPERATOR Checo Conklin MD [facility] CPT-59040 Level 3 Est. Patient 09:11:49 CDT [facility] CPT-17225 Level 2 Est. Patient 19:53:27 CDT Tanner hill MD [facility] CPT-27820 Level 3 Est. Patient 09:15:34 CDT [facility] CPT-23863 Level 3 Est. Patient 11:28:51 EXPANDING MACHINE OPERATOR [facility] CPT-99287 Level 4 Est. Patient 13:55:46 EXPANDING MACHINE OPERATOR Checo Conklin MD [facility] CPT-32331 Level 4 Est. Patient 17:10:53 CDT Checo Conklin MD [facility] CPT-57317 Level 3 Est. Patient 15:56:22 CDT Checo Conklin MD [facility] CPT-89960 Level 3 Est. Patient 15:29:07 CDT Checo Conklin MD [facility] CPT-40222 Level 3 Est. Patient 14:38:41 CDT Checo Conklin MD [facility] CPT-11616 Level 3 Est. Patient 15:22:03 EXPANDING MACHINE OPERATOR Thomas reynolds DO [facility] CPT-43265 Level 3 Est. Patient 13:34:17 EXPANDING MACHINE OPERATOR Checo Conklin MD [facility] CPT-38086 Level 3 Est. Patient 12:29:32 CDT Dangelo arroyo MD [facility] CPT-88310 Level 3 Est. Patient 16:53:02 CDT Checo Conklin MD [facility] CPT-71227 Level 3 Est. Patient 16:37:13 CDT Checo Conklin MD [facility] CPT-51839 Level 3 Est. Patient 16:16:59 CDT Paul Hamlin MD [facility] CPT-73715 Level 3 Est. Patient 14:20:13 CDT Dangelo arroyo MD [facility] CPT-57589 Level 4 Est. Patient 11:29:33 CDT Checo Conklin MD [facility] CPT-35394 Level 3 Est. Patient 17:08:31 CDT Checo Conklin MD [facility] CPT-81693 Level 3 Est. Patient 16:50:42 EXPANDING MACHINE OPERATOR Checo Conklin MD [facility] CPT-85680 Level 4 Est. Patient 09:26:08 EXPANDING MACHINE OPERATOR Checo Conklin MD [facility] CPT-88475 Level 3 Est. Patient 11:37:10 CDT Checo Conklin MD [facility] CPT-80942 Level 4 Est. Patient 14:07:38 CDT Checo Conklin MD [facility] CPT-52792 Level 3 Est. Patient 09:54:41 CDT Checo Conklin MD [facility] CPT-87872 Level 3 Est. Patient 11:10:54 CDT Paul Hamlin MD [facility]-24349 Level 3 Est. Patient 14:16:56 EXPANDING MACHINE OPERATOR Checo Conklin MD [facility] CPT-02869 Level 3 Est. Patient 11:04:11 EXPANDING MACHINE OPERATOR Checo Conklin MD [facility] CPT-07013 Level 3 Est. Patient 17:09:26 CDT Dangelo arroyo MD [facility] CPT-48560 Level 3 Est. Patient 16:54:37 CDT Checo Conklin MD [facility] Procedures Code Procedure Name Date Entry Date Standard Desc ription CPT-81294 Abd compl w upright - XRAY USE ONLY 1 1:36:54 EXPANDING MACHINE OPERATOR CPT-81947 UA w micro - LAB USE ONLY 17:06:46 CDT 2015 CPT-73731 BHCG Qual - LAB USE ONLY 17:06:46 CDT 05/06 CPT-93817 CMP - LAB USE ONLY 17:06:46 CDT CPT-17559 CBC with Diff - LAB USE ONLY 17:06:45 CDT 2 CPT-96056 Venipuncture Draw Fee 17:06:45 CDT CPT-LR Lesion Removal 19:53:27 CDT CPT-OV Office Visit 11:31:28 CDT CPT-58163 Tubersol 09:39:29 CDT CPT-J2550 Phenergan 25 mg (Promethazine) 13:59:02 EXPANDING MACHINE OPERATOR CPT-J1885 Toradol 60 mg (Ketorolac) 13:59:02 EXPANDING MACHINE OPERATOR 2012
--- OUTSIDE RECORDS SUMMARY | 2019-09-29 01:40 | XMS REPORT | Clinical Summary ---
Author Author Admin, Bethany Gonzales Organization [employer] Address Unknown Phone Unavailable Allergies, Adverse Reactions, [...] care facility OTITIS MEDIA-RIGHT 382.9 Resolved Checo irchey MD Unspecified otitis media Onychomycosis, toenails 110.1 [...] po BID x 10 days 09/12 AMOXICILLIN [id number] No Longer Active Checo Conklin MD Activ e PAROXETINE HCL 20 MG ORAL TABS 0.5 po qd 6 days, then 1 po qd 09/02 PAROXETINE HCL 23980031892 Active Checo Conklin MD Active FLUTICASONE PROPIONATE 50 MCG/ACT NASAL SUSP 2 sprays/ nostril qd PRN Congestion/Allergies FLUTICASONE PROPIONATE 86685822367 Ac tive Checo Conklin MD Active MIRALAX ORAL POWD 8.5 to 17g po qd PRN Constipation POLYETHYLENE GLYCOL 3350 64186700088 Active Checo Conklin MD Active CLARITIN 10 MG TAB 1 tablet by mouth daily as needed for allergi es LORATADINE 60238256203 No Longer Active Checo Conklin MD Active BACTRIM DS 800-160 MG TAB 1 tab by mouth twice daily 2 TRIMETHOPRIM-SULFAMETHOXAZOLE 96862443898 No Longer Active Tanner Carrillo MD Active DIFLUCAN 150 MG TAB 1 tablet by mouth qod FLUCO NAZOLE 23662224476 No Longer Active Efren Medel APRN Active AZITHROMYCIN 250 MG TABS 2 po qd x 1 day, then 1 po qd x 4 days AZITHROMYCIN 67667078271 No Longer Active Efren Medel APRN Active FLAGYL 500 MG TAB 1 tablet by mouth bid METRONI DAZOLE 28317390950 No Longer Active Checo Conklin MD Active FOCALIN XR 10 MG ORAL [id number] 1 po q a.m. DEX METHYLPHENIDATE HCL 35819530782 Active Checo Conklin MD Active MAGNESIUM CITRATE 1.745 GM/30ML ORAL SOLN 150ml po BID PRN C onstipation MAGNESIUM CITRATE 96125548027 No Longer Active Checo Conklin MD Active BACTROBAN 2 % CREAM Apply to affected area BID for up to 10 days MUPIROCIN CALCIUM 67088798913 No Longer Active Checo Conklin MD Active HYDROCODONE-ACETAMINOPHEN 5-325 MG TABS 1 tab by mouth every 6 hours as needed HYDROCODONE-ACETAMINOPHEN 53517310015 No Longer Activ e Checo Conklin MD Active IBUPROFEN 800 MG TABS 1 tab every 8 hours with food 31/03/21 IBUPROFEN 47708214847 No Longer Active Checo Conklin MD Activ e DIFLUCAN 150 MG TAB 1 tablet by mouth if needed, hold until symptoms start FLUCONAZOLE 49443024396 No Longer Active Checo Ortiz MD Active BACTRIM DS 800-160 MG TAB 1 tab by mouth twice daily 2 TRIMETHOPRIM-SULFAMETHOXAZOLE 64527844671 No Longer Active Corry leong LPN Active HYDROCODONE-ACETAMINOPHEN 5-325 MG TABS 0.5 to 1 tab b y mouth every 6 hours as needed HYDROCODONE-ACETAMINOPHEN 68642497349 No Longer Active Checo Conklin MD Active ONDANSETRON [address] one tablet on tongue and allow to dissolve every 6 hours as needed for vomitting ONDANSETRO N 59356355608 No Longer Active Checo Conklin MD Active COMPRO 25 MG RECTAL SUPP insert or apply one supposit ory rectally as directed every 12 hours as needed for nausea PROCHLORPERA ZINE 65075121787 No Longer Active Checo Conklin MD Active SUMATRIPTAN SUCCINATE 100 MG ORAL TABS Take one PRN for migrane SUMATRIPTAN SUCCINATE 06051450159 No Longer Active Checo Conklin MD Active TRAVEL SICKNESS 25 MG ORAL CHEW chew and swallow one t ablet every 6 hours as needed MECLIZINE HCL 28864951936 No Longer Active Joe Conklin MD Active BUPROPION HCL ER (SR) 100 MG ORAL [id number] take one t ablet by mouth one time daily for one week then take 1 two times daily BUPROPION HCL 29676920830 No Longer Active Checo Conklin MD Activ e TERBINAFINE HCL 250 MG ORAL TABS take one table PO one time abran y TERBINAFINE HCL 25293385715 No Longer Active Checo Conklin MD Active METOCLOPRAMIDE HCL 10 MG ORAL TABS take one PO tid PRN nausea 20 29/12/14 METOCLOPRAMIDE HCL 37669301890 No Longer Active Checo Conklin MD Active DICLOFENAC SODIUM 75 MG TBEC 1 tablet by mouth twice daily P RN Knee pain DICLOFENAC SODIUM 05306471232 No Longer Active Checo Conklin MD Active LAMISIL 250 MG TAB 1 po qd TERBINAFINE HCL 548 35795408 No Longer Active Checo Conklin MD Active REGLAN 10 MG TAB 1 po TID PRN Nausea METOCLOPRA MIDE HCL 71649329005 No Longer Active Checo Conklin MD Active CELEXA 20 MG TABS 1 tablet by mouth daily CITALOPRAM HYDROBROMIDE 40601659426 No Longer Active Checo Conklin MD Activ e AZITHROMYCIN 250 MG TABS 2 po qd x 1 day, then 1 po qd x 4 days AZITHROMYCIN 00604156856 No Longer Active Checo Conklin MD Active HYDROCODONE-ACETAMINOPHEN 5-325 MG TABS 1 po q 6hr PRN Pain 2013 HYDROCODONE-ACETAMINOPHEN 45150944354 No Longer Active Lenora Conklin MD Active PHENAZOPYRIDINE HCL 200 MG TABS take 1 tab po TID for bladder pa in PHENAZOPYRIDINE HCL 48214656330 No Longer Active Checo Joshua Active CIPRO 500 MG TAB 1 tablet by mouth twice daily CIPROFLOXACIN HCL 51616544972 No Longer Active Dangelo Rangel MD Active HYDROCODONE-ACETAMINOPHEN 5-325 MG TABS 1/2 to 1 po q 4 hour s prn cough HYDROCODONE-ACETAMINOPHEN 02539306922 No Longer Activ e Dangelo Rangel MD Active BACTRIM DS 800-160 MG TABS 1 po BID x 7 days 0 SULFAMETHOXAZOLE-TRIMETHOPRIM 99241074058 No Longer Active Checo Conklin MD Active PREDNISONE 20 MG TAB 2 tabs daily for 3 days, 1 t ab daily for 3 days, 1/2 tab daily for 2 days PREDNISONE 21582546573 No Longer Active Checo Conklin MD Active TRIAMCINOLONE ACETONIDE 0.1 % OINT Apply to affected a reas TID for up to 2 weeks TRIAMCINOLONE ACETONIDE 20338133227 No Longer A ctive Checo Conklin MD Active CEFDINIR 300 MG CAPS by mouth twice a day CEFDI JAZZY 49034952895 No Longer Active Dangelo Rangel MD Active BUPROPION HCL (SMOKING DETER) 150 MG [id number] 1 a day for 1 week then 1 twice a day BUPROPION HCL (SMOKING DETER) 21593781450 No Lo nger Active Checo Conklin MD Active SIMVASTATIN 20 MG TABS 1 po qd SIMVASTATIN 3840137706 5 Active Checo Conklin MD Active CHANTIX STARTING MONTH KARTHIK 0.5 MG X 11 & 1 MG X 42 TAB S 0.5mg daily for 3 days, then 0.5mg BID for 4 days, then 1mg BID VARENICLINE TARTRATE 41704878923 No Longer Active Checo Conklin MD Activ e XANAX 0.5 MG TABS 1 po BID PRN anxiety ALPRAZOLAM 21942797823 Active Checo Conklin MD Active CONCERTA 18 MG CR-TABS 1 po q a.m. METHYLPHENID ATE HCL 07080218940 No Longer Active Checo Conklin MD Active AMBIEN 5 MG TAB 1 po qHS PRN Insomnia ZOLPIDEM TARTRATE 51635762841 Active Checo Conklin MD Active TRAZODONE HCL 100 MG TAB 0.5 to 1 po qHS PRN Insomnia TRAZODONE HCL 74188930610 No Longer Active Checo Conklin MD Acti ve FIORICET 325-50-40 MG TAB 1 tablet by mouth four times daily as needed [id number] 81109664971 No Longer Active Checo Conklin MD Active PHENERGAN CREAM* 25mg applied to wrist q6hr PRN Nausea PHENERGAN CREAM* No Longer Active Checo Conklin MD A ctive FLONASE 50 MCG/ACT SUSP 1 spray each nostril am and hs FLUTICASONE PROPIONATE 55051045007 No Longer Active Checo Conklin MD Activ e ANTIPYRINE-BENZOCAINE 5.4-1.4 % SOLN 1-2 drops in affected ear BENZOCAINE-ANTIPYRINE 26286414232 No Longer Active Checo Conklin MD Active CEFDINIR 300 MG CAPS 1 po bid CEFDINIR 77277594 120 No Longer Active Checo Conklin MD Active PREDNISONE 20 MG TAB 2 tabs daily for 3 days, 1 t ab daily for 3 days, 1/2 tab daily for 2 days PREDNISONE 17885049238 No Longer Active Aracelis Conklin MD Active AZITHROMYCIN 250 MG TABS 2 po qd x 1 day, then 1 po qd x 4 days AZITHROMYCIN 80055283156 No Longer Active Checo Conklin MD Active PREDNISONE 20 MG TAB 2 tabs daily for 3 days, 1 t ab daily for 3 days, 1/2 tab daily for 2 days PREDNISONE 67263660494 No Longer Active Checo Conklin MD Active ZITHROMAX Z-KARTHIK 250 MG TABS 2 today, then 1 daily for 4 days 201 09/18/28 AZITHROMYCIN 71908969910 No Longer Active Paul Hamlin MD Active FOCALIN XR 10 MG [id number] 1 po q a.m. D EXMETHYLPHENIDATE HCL 74372715773 No Longer Active Paul Hamlin MD Activ e PERCOCET 10-325 MG TABS 1 tablet every 6 hours as needed for pain OXYCODONE-ACETAMINOPHEN 70347765705 No Longer Active Paul Hamlin MD Active LORTAB 5 5-500 MG TABS 1/2 to 1 tablet by mouth flaquito ry 4 hours as needed for pain HYDROCODONE-ACETAMINOPHEN 11384513610 No Longer Active Checo Conklin MD Active FOCALIN XR 15 MG [id number] 1 po q a.m. D EXMETHYLPHENIDATE HCL 11187288503 No Longer Active Checo Conklin MD Activ e ZOFRAN ODT 4 MG TBDP 1 po q6hr PRN Nausea ONDAN SETRON 28600140353 No Longer Active Checo Conklin MD Active PERCOCET 5-325 MG TABS 1 tablet by mouth every 6 hours as needed OXYCODONE-ACETAMINOPHEN 13199163159 No Longer Active Checo Conklin MD Active PYRIDIUM 200 MG TABS take 1 tab po TID prn urinary pain. 0 PHENAZOPYRIDINE HCL 86586856341 No Longer Active Checo Conklin MD Active FLUCONAZOLE 150 MG TABS take 1 tab po qday once 04/06 FLUCONAZOLE 81357699122 No Longer Active Dangelo Rangel MD Acti ve CIPRO 500 MG TAB 1 tablet by mouth twice daily CIPROFLOXACIN HCL 39577544344 No Longer Active Dangelo Rangel MD Active PYRIDIUM 200 MG TABS take 1 tab po TID prn urinary pain. 0 PYRIDIUM 200 MG TABS 0379294 PHENAZOPYRIDINE HCL Inactive PERCOCET 5-325 MG TABS 1 tablet by mouth every 6 hours as needed PERCOCET 5-325 MG TABS 8621814 OXYCODONE-ACETAMINOPHEN I nactive ZOFRAN ODT 4 MG TBDP 1 po q6hr PRN Nausea ZOFRAN ODT 4 MG TBDP 098094 ONDANSETRON Inactive FOCALIN XR 15 MG [id number] 1 po q a.m. F OCALIN XR 15 MG [id number] DEXMETHYLPHENIDATE HCL Inactive LORTAB 5 5-500 MG TABS 1/2 to 1 tablet by mouth flaquito ry 4 hours as needed for pain LORTAB 5 5-500 MG TABS HYDROCODONE-A CETAMINOPHEN Inactive PERCOCET 10-325 MG TABS 1 tablet every 6 hours as needed for pain PERCOCET 10-325 MG TABS 0225000 OXYCODONE-ACETAMINOPHEN Inactive FOCALIN XR 10 MG [id number] 1 po q a.m. F OCALIN XR 10 MG [id number] DEXMETHYLPHENIDATE HCL Inactive CEFDINIR 300 MG CAPS [...] PRN Insomnia TRAZODONE HCL 100 MG TAB 730730 TRAZODONE HCL Inactive CONCERTA 18 MG CR-TABS [...] s prn cough HYDROCODONE-ACETAMINOPHEN 5-325 MG TABS 687136 HYDROCODONE-ACETAMINOPHEN Inactive PHENAZOPYRIDINE HCL 200 MG TABS take 1 tab po TID for bladder pa in PHENAZOPYRIDINE HCL 200 MG TABS 4317207 PHENAZOPYRIDINE HCL Inactive HYDROCODONE-ACETAMINOPHEN 5-325 MG TABS 1 po q 6hr PRN Pain 2013 HYDROCODONE-ACETAMINOPHEN 5-325 MG TABS 045045 HYDROCODONE-ACETAMINOPHEN Inactive CELEXA 20 MG TABS 1 tablet by mouth daily CELEXA 20 MG TABS 034636 CITALOPRAM HYDROBROMIDE Inactive REGLAN 10 MG TAB 1 po TID PRN Nausea REGLAN 10 MG TAB 703928 METOCLOPRAMIDE HCL Inactive LAMISIL 250 MG TAB 1 po qd LAMISIL 250 MG TAB 861844 TERBINAFINE HCL Inactive DICLOFENAC SODIUM 75 MG TBEC 1 tablet by mouth twice daily P RN Knee pain DICLOFENAC SODIUM 75 MG TBEC 581950 DICLOFENAC S ODIUM Inactive METOCLOPRAMIDE HCL 10 MG ORAL TABS take one PO tid PRN nausea 20 29/12/14 METOCLOPRAMIDE HCL 10 MG ORAL TABS 440173 METOCLOPRAMID E HCL Inactive TERBINAFINE HCL 250 MG ORAL TABS take one table PO one time abran y TERBINAFINE HCL 250 MG ORAL TABS 614671 TERBINAFINE HCL Inactive BUPROPION HCL ER (SR) 100 MG ORAL [id number] take one t ablet by mouth one time daily for one week then take 1 two times daily BUPROPION HCL ER (SR) 100 MG ORAL [id number] BUPROPION HCL Inacti ve TRAVEL SICKNESS 25 MG ORAL CHEW chew and swallow one t ablet every 6 hours as needed TRAVEL SICKNESS 25 MG ORAL CHEW 851240 MECLIZINE HCL Inactive SUMATRIPTAN SUCCINATE 100 MG ORAL TABS Take one PRN for migrane SUMATRIPTAN SUCCINATE 100 MG ORAL TABS 848999 SUMATRIPT AN SUCCINATE Inactive COMPRO 25 MG RECTAL SUPP insert or apply one supposit ory rectally as directed every 12 hours as needed for nausea COMP RO 25 MG RECTAL SUPP 710316 PROCHLORPERAZINE Inactive ONDANSETRON [address] one tablet on tongue and allow to dissolve every 6 hours as needed for vomitting ON DANSETRON 8 MG ORAL TBDP 801579 ONDANSETRON Inactive HYDROCODONE-ACETAMINOPHEN 5-325 MG TABS 0.5 to 1 tab b y mouth every 6 hours as needed HYDROCODONE-ACETAMINOPHEN 5-325 MG TABS 8 23068 HYDROCODONE-ACETAMINOPHEN Inactive BACTRIM DS 800-160 MG TAB 1 tab by mouth twice daily 2 BACTRIM DS 800-160 MG TAB 481529 TRIMETHOPRIM-SULFAMETHOXAZOLE Inac tive DIFLUCAN 150 MG TAB 1 tablet by mouth if needed, hold until symptoms start DIFLUCAN 150 MG TAB 160475 FLUCONAZOLE Inactive IBUPROFEN 800 MG TABS 1 tab every 8 hours with food 31/03/21 IBUPROFEN 800 MG TABS 041367 IBUPROFEN Inactive HYDROCODONE-ACETAMINOPHEN 5-325 MG TABS 1 tab by mouth every 6 hours as needed HYDROCODONE-ACETAMINOPHEN 5-325 MG TABS 942868 HYDROCODONE-ACETAMINOPHEN Inactive BACTROBAN 2 % CREAM Apply to affected area BID for up to 10 days BACTROBAN 2 % CREAM 098721 MUPIROCIN CALCIUM Inactive MAGNESIUM CITRATE 1.745 GM/30ML ORAL SOLN 150ml po BID PRN C onstipation MAGNESIUM CITRATE 1.745 GM/30ML ORAL SOLN 337428 0 MAGNESIUM CITRATE Inactive DIFLUCAN 150 MG TAB 1 tablet by mouth qod DIFLUCAN 150 MG TAB 447669 FLUCONAZOLE Inactive BACTRIM DS 800-160 MG TAB 1 tab by mouth twice daily 2 BACTRIM DS 800-160 MG TAB 128215 TRIMETHOPRIM-SULFAMETHOXAZOLE Inac tive CLARITIN 10 MG TAB 1 tablet by mouth daily as needed for allergi es CLARITIN 10 MG TAB 946453 LORATADINE Inactive CIPRO 500 MG TAB 1 tablet by mouth twice daily CIPRO 500 MG TAB 279452 CIPROFLOXACIN HCL Inactive FLUCONAZOLE 150 MG TABS take 1 tab po qday once 04/06 FLUCONAZOLE 150 MG TABS 825216 FLUCONAZOLE Inactive ZITHROMAX Z-KARTHIK 250 MG TABS 2 today, then 1 daily for 4 days 201 09/18/28 ZITHROMAX Z-KARTHIK 250 MG TABS 2683970 AZITHROMYCIN Inac tive PREDNISONE 20 MG TAB 2 tabs daily for 3 days, 1 t ab daily for 3 days, 1/2 tab daily for 2 days PREDNISONE 20 MG TAB 549185 PREDNISON E Inactive AZITHROMYCIN 250 MG TABS 2 po qd x 1 day, then 1 po qd x 4 days AZITHROMYCIN 250 MG TABS 1225788 AZITHROMYCIN Inactiv e PREDNISONE 20 MG TAB 2 tabs daily for 3 days, 1 t ab daily for 3 days, 1/2 tab daily for 2 days PREDNISONE 20 MG TAB 183379 PREDNISON E Inactive CEFDINIR 300 MG CAPS by mouth twice a day CEFDINIR 300 MG CAPS 656346 CEFDINIR Inactive TRIAMCINOLONE ACETONIDE 0.1 % OINT Apply to affected a reas TID for up to 2 weeks TRIAMCINOLONE ACETONIDE 0.1 % OINT 031428 6 TRIAMCINOLONE ACETONIDE Inactive PREDNISONE 20 MG TAB 2 tabs daily for 3 days, 1 t ab daily for 3 days, 1/2 tab daily for 2 days PREDNISONE 20 MG TAB 260449 PREDNISON E Inactive BACTRIM DS 800-160 MG TABS 1 po BID x 7 days 0 BACTRIM DS 800-160 MG TABS 647800 SULFAMETHOXAZOLE-TRIMETHOPRIM Inactive CIPRO 500 MG TAB 1 tablet by mouth twice daily CIPRO 500 MG TAB 360871 CIPROFLOXACIN HCL Inactive AZITHROMYCIN 250 MG TABS 2 po qd x 1 day, then 1 po qd x 4 days AZITHROMYCIN 250 MG TABS 4525849 AZITHROMYCIN Inactiv e FLAGYL 500 MG TAB 1 tablet by mouth bid FLAGYL 500 MG TAB 875197 METRONIDAZOLE Inactive AZITHROMYCIN 250 MG TABS 2 po qd x 1 day, then 1 po qd x 4 days AZITHROMYCIN 250 MG TABS 4065186 AZITHROMYCIN Inactiv e AMOXICILLIN 500 MG ORAL CAPS 2 po BID x 10 days 09/12 AMOXICILLIN 500 MG ORAL CAPS 153076 AMOXICILLIN Inactive Immunizations Vaccine Administration Date Value [...] Report: CBC W/DIFF, Comp. Metabolic Panel, Qual [facility] - Chemistry sodium, serum 139 mmol/L 185-828 5839/10/21 carbon dioxide, venous blood 33.5 mmol/L 21.0-32 [...] Report: CBC W/DIFF, Comp. Metabolic Panel, Qual [facility] - Hematology leukocyte count, blood 7.9 10^3/MM^3 [...] PANEL - Chemistry cholesterol, serum 192 mg/dL 088-038 9439/02/20 HDL cholesterol, serum 31 mg/dL > OR [...] 11 .0-15.0 platelet count 218 THOUSAND/UL 10*3/mm3 305-672 2377/02/20 mean platelet volume 9.7 fL 7.5-12.5 Lab Report: Chlamydia/GC APTIMA/06485 - Lab chlamydia DNA probe NOT DETECTED NOT DETECTED Lab Report: Chlamydia/GC APTIMA/87871 - Microbiology Neisseria gonorrhoeae DNA probe NOT DETECTED NO T DETECTED Lab Report: Comp. Metabolic Panel, Thyro id Stimulating Hormone (L), Eryt ... - Chemistry sodium, serum 137 mmol/L 101-286 0636/05/27 carbon dioxide, venous blood 29.1 mmol/L 21.0-32 [...] 5.0-8.5 Encounters Code Encounter Date Provider Facility CPT-35926 Level 4 Est. Patient 11:08:12 PATCHER HELPER Checo Conklin MD [facility] CPT-68380 Level 4 Est. Patient 16:06:48 PATCHER HELPER Checo Conklin MD [facility] CPT-92294 Level 3 Est. Patient 09:11:49 CDT Efren almendarez [facility] CPT-97551 Level 2 Est. Patient 19:53:27 CDT Tanner hill MD [facility] CPT-07354 Level 3 Est. Patient 09:15:34 CDT Efren almendarez [facility] CPT-37085 Level 3 Est. Patient 11:28:51 PATCHER HELPER Efren almendarez [facility] CPT-76018 Level 4 Est. Patient 13:55:46 PATCHER HELPER Checo Conklin MD [facility] CPT-97238 Level 4 Est. Patient 17:10:53 CDT Checo Conklin MD [facility] CPT-40875 Level 3 Est. Patient 15:56:22 CDT Checo Conklin MD [facility] CPT-45382 Level 3 Est. Patient 15:29:07 CDT Checo Conklin MD [facility] CPT-70140 Level 3 Est. Patient 14:38:41 CDT Checo Conklin MD [facility] CPT-07795 Level 3 Est. Patient 15:22:03 PATCHER HELPER Thomas reynolds DO [facility] CPT-83299 Level 3 Est. Patient 13:34:17 PATCHER HELPER Checo Conklin MD [facility] CPT-22554 Level 3 Est. Patient 12:29:32 CDT Dangelo arroyo MD [facility] CPT-63185 Level 3 Est. Patient 16:53:02 CDT Checo Conklin MD [facility] CPT-16313 Level 3 Est. Patient 16:37:13 CDT Checo Conklin MD [facility] CPT-90764 Level 3 Est. Patient 16:16:59 CDT Paul Hamlin MD [facility] CPT-53646 Level 3 Est. Patient 14:20:13 CDT Dangelo arroyo MD [facility] CPT-30443 Level 4 Est. Patient 11:29:33 CDT Checo Conklin MD [facility] CPT-12209 Level 3 Est. Patient 17:08:31 CDT Checo Conklin MD [facility] CPT-96959 Level 3 Est. Patient 16:50:42 PATCHER HELPER Checo Conklin MD [facility] CPT-71889 Level 4 Est. Patient 09:26:08 PATCHER HELPER Checo Conklin MD [facility] CPT-90895 Level 3 Est. Patient 11:37:10 CDT Checo Conklin MD [facility] CPT-88996 Level 4 Est. Patient 14:07:38 CDT Checo Conklin MD [facility] CPT-46700 Level 3 Est. Patient 09:54:41 CDT Checo Conklin MD [facility] CPT-84049 Level 3 Est. Patient 11:10:54 CDT Paul Hamlin MD [facility] CPT-51880 Level 3 Est. Patient 14:16:56 PATCHER HELPER Checo Conklin MD [facility] CPT-13226 Level 3 Est. Patient 11:04:11 PATCHER HELPER Checo Conklin MD [facility] CPT-33003 Level 3 Est. Patient 17:09:26 CDT Dangelo arroyo MD [facility] CPT-35427 Level 3 Est. Patient 16:54:37 CDT Checo Conklin MD [facility] Procedures Code Procedure Name Date Entry Date Standard Desc ription CPT-64928 UA w micro - LAB USE ONLY 17:06:46 CDT 2015 CPT-35517 [facility] Qual - LAB USE ONLY 17:06:46 CDT 05/06 CPT-46230 CMP - LAB USE ONLY 17:06:46 CDT CPT-50818 CBC with Diff - LAB USE ONLY 17:06:45 CDT 2 CPT-44755 Venipuncture Draw Fee 17:06:45 CDT CPT-LR Lesion Removal 19:53:27 CDT CPT-OV Office Visit 11:31:28 CDT CPT-81080 Tubersol 09:39:29 CDT CPT-J2550 Phenergan 25 mg (Promethazine) 13:59:02 PATCHER HELPER CPT-J1885 Toradol 60 mg (Ketorolac) 13:59:02 PATCHER HELPER 2012
--- OUTSIDE RECORDS SUMMARY | 2019-09-29 01:41 | XMS REPORT | Clinical Summary ---
Author Author Admin, Bethany Gonzales Organization [facility] Address Unknown Phone Unavailable Allergies, Adverse Reactions, [...] Checo gallagher MD Abdominal pain ICD-789.00 Inactive Cehco ngo MD Medication List Medication Instructions Start Date Stop Date Generic Name NDC Status Provider Patient Instruction MAGNESIUM CITRATE 1.745 GM/30ML ORAL SOLN 150ml po BID PRN C onstipation MAGNESIUM CITRATE 47140451679 Active Checo Conklin MD Active MIRALAX PACK 1 po qd PRN Constipation POLYETHYL JOEL GLYCOL 3350 [id number] Active Checo Conklin MD Active HYDROCODONE-ACETAMINOPHEN 5-325 MG TABS 0.5 to 1 tab b y mouth every 6 hours as needed HYDROCODONE-ACETAMINOPHEN 09065264534 No Longer Active Checo Conklin MD Active ONDANSETRON [address] one tablet on tongue and allow to dissolve every 6 hours as needed for vomitting ONDANSETRO N 78590103297 No Longer Active Checo Conklin MD Active COMPRO 25 MG RECTAL SUPP insert or apply one supposit ory rectally as directed every 12 hours as needed for nausea PROCHLORPERA ZINE 51152729198 No Longer Active Checo Conklin MD Active SUMATRIPTAN SUCCINATE 100 MG ORAL TABS Take one PRN for migrane SUMATRIPTAN SUCCINATE 53725624050 No Longer Active Checo Conklin MD Active TRAVEL SICKNESS 25 MG ORAL CHEW chew and swallow one t ablet every 6 hours as needed MECLIZINE HCL 86564793174 No Longer Active Joe Conklin MD Active BUPROPION HCL ER (SR) 100 MG ORAL [id number] take one t ablet by mouth one time daily for one week then take 1 two times daily BUPROPION HCL 42190738202 No Longer Active Checo Conklin MD Activ e TERBINAFINE HCL 250 MG ORAL TABS take one table PO one time abran y TERBINAFINE HCL 73087620935 No Longer Active Checo Conklin MD Active METOCLOPRAMIDE HCL 10 MG ORAL TABS take one PO tid PRN nausea 20 29/12/14 METOCLOPRAMIDE HCL 19945641775 No Longer Active Checo Conklin MD Active DICLOFENAC SODIUM 75 MG TBEC 1 tablet by mouth twice daily P RN Knee pain DICLOFENAC SODIUM 38433333208 No Longer Active Checo Conklin MD Active LAMISIL 250 MG TAB 1 po qd TERBINAFINE HCL 548 43551662 No Longer Active Checo Conklin MD Active REGLAN 10 MG TAB 1 po TID PRN Nausea METOCLOPRA MIDE HCL 68901267660 No Longer Active Checo Conklin MD Active CELEXA 20 MG TABS 1 tablet by mouth daily CITALOPRAM HYDROBROMIDE 21090474165 No Longer Active Checo Conklin MD Activ e AZITHROMYCIN 250 MG TABS 2 po qd x 1 day, then 1 po qd x 4 days AZITHROMYCIN 80283648992 No Longer Active Checo Conklin MD Active HYDROCODONE-ACETAMINOPHEN 5-325 MG TABS 1 po q 6hr PRN Pain 2013 HYDROCODONE-ACETAMINOPHEN 83760734400 No Longer Active Lenora Conklin MD Active PHENAZOPYRIDINE HCL 200 MG TABS take 1 tab po TID for bladder pa in PHENAZOPYRIDINE HCL 28067973244 No Longer Active Checo Joshua Active CIPRO 500 MG TAB 1 tablet by mouth twice daily CIPROFLOXACIN HCL 58399756443 No Longer Active Dangelo Rangel MD Active HYDROCODONE-ACETAMINOPHEN 5-325 MG TABS 1/2 to 1 po q 4 hour s prn cough HYDROCODONE-ACETAMINOPHEN 00738723372 No Longer Activ e Dangelo Rangel MD Active BACTRIM DS 800-160 MG TABS 1 po BID x 7 days 0 SULFAMETHOXAZOLE-TRIMETHOPRIM 55043167036 No Longer Active Checo Conklin MD Active PREDNISONE 20 MG TAB 2 tabs daily for 3 days, 1 t ab daily for 3 days, 1/2 tab daily for 2 days PREDNISONE 93564239308 No Longer Active Checo Conklin MD Active TRIAMCINOLONE ACETONIDE 0.1 % OINT Apply to affected a reas TID for up to 2 weeks TRIAMCINOLONE ACETONIDE 30564900850 No Longer A ctive Checo Conklin MD Active CEFDINIR 300 MG CAPS by mouth twice a day CEFDI JAZZY 95920901677 No Longer Active Dangelo Rangel MD Active BUPROPION HCL (SMOKING DETER) 150 MG [id number] 1 a day for 1 week then 1 twice a day BUPROPION HCL (SMOKING DETER) 41200894051 No Lo nger Active Checo Conklin MD Active SIMVASTATIN 20 MG TABS 1 po qd SIMVASTATIN 9599152628 5 Active Checo Conklin MD Active CHANTIX STARTING MONTH KARTHIK 0.5 MG X 11 & 1 MG X 42 TAB S 0.5mg daily for 3 days, then 0.5mg BID for 4 days, then 1mg BID VARENICLINE TARTRATE 76609098205 No Longer Active Checo Conklin MD Activ e XANAX 0.5 MG TABS 1 po BID PRN anxiety ALPRAZOLAM 16021060514 Active Checo Conklin MD Active CONCERTA 18 MG CR-TABS 1 po q a.m. METHYLPHENID ATE HCL 18761542090 No Longer Active Checo Conklin MD Active AMBIEN 5 MG TAB 1 po qHS PRN Insomnia ZOLPIDEM TARTRATE 83640252712 Active Checo Conklin MD Active TRAZODONE HCL 100 MG TAB 0.5 to 1 po qHS PRN Insomnia TRAZODONE HCL 50090278223 No Longer Active Checo Conklin MD Acti ve FIORICET 325-50-40 MG TAB 1 tablet by mouth four times daily as needed [id number] 52158106918 No Longer Active Checo Conklin MD Active PHENERGAN CREAM* 25mg applied to wrist q6hr PRN Nausea PHENERGAN CREAM* No Longer Active Checo Gonzales ctive FLONASE 50 MCG/ACT SUSP 1 spray each nostril am and hs FLUTICASONE PROPIONATE 28255874294 No Longer Active Checo Conklin MD Activ e ANTIPYRINE-BENZOCAINE 5.4-1.4 % SOLN 1-2 drops in affected ear BENZOCAINE-ANTIPYRINE 16338186367 No Longer Active Checo Conklin MD Active CEFDINIR 300 MG CAPS 1 po bid CEFDINIR 01909852 120 No Longer Active Checo Conklin MD Active PREDNISONE 20 MG TAB 2 tabs daily for 3 days, 1 t ab daily for 3 days, 1/2 tab daily for 2 days PREDNISONE 10603455467 No Longer Active Aracelis Conklin MD Active AZITHROMYCIN 250 MG TABS 2 po qd x 1 day, then 1 po qd x 4 days AZITHROMYCIN 61616503697 No Longer Active Checo Conklin MD Active PREDNISONE 20 MG TAB 2 tabs daily for 3 days, 1 t ab daily for 3 days, 1/2 tab daily for 2 days PREDNISONE 68970691328 No Longer Active Checo Conklin MD Active ZITHROMAX Z-KARTHIK 250 MG TABS 2 today, then 1 daily for 4 days 201 09/18/28 AZITHROMYCIN 62099407152 No Longer Active Paul Hamlin MD Active FOCALIN XR 10 MG [id number] 1 po q a.m. D EXMETHYLPHENIDATE HCL 69025075175 No Longer Active Paul Hamlin MD Activ e PERCOCET 10-325 MG TABS 1 tablet every 6 hours as needed for pain OXYCODONE-ACETAMINOPHEN 86545625657 No Longer Active Paul Hamlin MD Active LORTAB 5 5-500 MG TABS 1/2 to 1 tablet by mouth flaquito ry 4 hours as needed for pain HYDROCODONE-ACETAMINOPHEN 06893959919 No Longer Active Checo Conklin MD Active FOCALIN XR 15 MG [id number] 1 po q a.m. D EXMETHYLPHENIDATE HCL 97829373614 No Longer Active Checo Conklin MD Activ e ZOFRAN ODT 4 MG TBDP 1 po q6hr PRN Nausea ONDAN SETRON 09659452338 No Longer Active Checo Conklin MD Active PERCOCET 5-325 MG TABS 1 tablet by mouth every 6 hours as needed OXYCODONE-ACETAMINOPHEN 25248898745 No Longer Active Checo Conklin MD Active PYRIDIUM 200 MG TABS take 1 tab po TID prn urinary pain. 0 PHENAZOPYRIDINE HCL 82249255683 No Longer Active Checo Conklin MD Active FLUCONAZOLE 150 MG TABS take 1 tab po qday once 04/06 FLUCONAZOLE 04737714598 No Longer Active Dangelo Rangel MD Acti ve CIPRO 500 MG TAB 1 tablet by mouth twice daily CIPROFLOXACIN HCL 37087857470 No Longer Active Dangelo Rangel MD Active PYRIDIUM 200 MG TABS take 1 tab po TID prn urinary pain. 0 PYRIDIUM 200 MG TABS 4610097 PHENAZOPYRIDINE HCL Inactive PERCOCET 5-325 MG TABS 1 tablet by mouth every 6 hours as needed PERCOCET 5-325 MG TABS 0033701 OXYCODONE-ACETAMINOPHEN I nactive ZOFRAN ODT 4 MG TBDP 1 po q6hr PRN Nausea ZOFRAN ODT 4 MG TBDP 155551 ONDANSETRON Inactive FOCALIN XR 15 MG [id number] 1 po q a.m. F OCALIN XR 15 MG [id number] DEXMETHYLPHENIDATE HCL Inactive LORTAB 5 5-500 MG TABS 1/2 to 1 tablet by mouth flaquito ry 4 hours as needed for pain LORTAB 5 5-500 MG TABS HYDROCODONE-A CETAMINOPHEN Inactive PERCOCET 10-325 MG TABS 1 tablet every 6 hours as needed for pain PERCOCET 10-325 MG TABS 1817689 OXYCODONE-ACETAMINOPHEN Inactive FOCALIN XR 10 MG [id number] 1 po q a.m. F OCALIN XR 10 MG [id number] DEXMETHYLPHENIDATE HCL Inactive CEFDINIR 300 MG CAPS 1 po bid CEFDINIR 300 MG CAPS 20 0346 CEFDINIR Inactive ANTIPYRINE-BENZOCAINE 5.4-1.4 % SOLN 1-2 drops in affected ear ANTIPYRINE-BENZOCAINE 5.4-1.4 % SOLN 791815 BENZOCAINE-ANTIPYRINE I nactive FLONASE 50 MCG/ACT SUSP 1 spray each nostril am and hs FLONASE 50 MCG/ACT SUSP 056634 FLUTICASONE PROPIONATE Inactive PHENERGAN CREAM* 25mg applied to wrist q6hr PRN Nausea PHENERGAN CREAM* Inactive FIORICET 325-50-40 MG TAB 1 tablet by mouth four times daily as needed FIORICET 325-50-40 MG TAB ACETAMINOPHEN-C AFF-BUTALBITAL Inactive TRAZODONE HCL 100 MG TAB 0.5 to 1 po qHS PRN Insomnia TRAZODONE HCL 100 MG TAB 817664 TRAZODONE HCL Inactive CONCERTA 18 MG CR-TABS [...] s prn cough HYDROCODONE-ACETAMINOPHEN 5-325 MG TABS 694716 HYDROCODONE-ACETAMINOPHEN Inactive PHENAZOPYRIDINE HCL 200 MG TABS take 1 tab po TID for bladder pa in PHENAZOPYRIDINE HCL 200 MG TABS 0093696 PHENAZOPYRIDINE HCL Inactive HYDROCODONE-ACETAMINOPHEN 5-325 MG TABS 1 po q 6hr PRN Pain 2013 HYDROCODONE-ACETAMINOPHEN 5-325 MG TABS 427556 HYDROCODONE-ACETAMINOPHEN Inactive CELEXA 20 MG TABS 1 tablet by mouth daily CELEXA 20 MG TABS 706673 CITALOPRAM HYDROBROMIDE Inactive REGLAN 10 MG TAB 1 po TID PRN Nausea REGLAN 10 MG TAB 248103 METOCLOPRAMIDE HCL Inactive LAMISIL 250 MG TAB 1 po qd LAMISIL 250 MG TAB 618697 TERBINAFINE HCL Inactive DICLOFENAC SODIUM 75 MG TBEC 1 tablet by mouth twice daily P RN Knee pain DICLOFENAC SODIUM 75 MG TBEC 587822 DICLOFENAC S ODIUM Inactive METOCLOPRAMIDE HCL 10 MG ORAL TABS take one PO tid PRN nausea 20 29/12/14 METOCLOPRAMIDE HCL 10 MG ORAL TABS 448084 METOCLOPRAMID E HCL Inactive TERBINAFINE HCL 250 MG ORAL TABS take one table PO one time abran y TERBINAFINE HCL 250 MG ORAL TABS 429538 TERBINAFINE HCL Inactive BUPROPION HCL ER (SR) 100 MG ORAL [id number] take one t ablet by mouth one time daily for one week then take 1 two times daily BUPROPION HCL ER (SR) 100 MG ORAL [id number] BUPROPION HCL Inacti ve TRAVEL SICKNESS 25 MG ORAL CHEW chew and swallow one t ablet every 6 hours as needed TRAVEL SICKNESS 25 MG ORAL CHEW 600447 MECLIZINE HCL Inactive SUMATRIPTAN SUCCINATE 100 MG ORAL TABS Take one PRN for migrane SUMATRIPTAN SUCCINATE 100 MG ORAL TABS 923623 SUMATRIPT AN SUCCINATE Inactive COMPRO 25 MG RECTAL SUPP insert or apply one supposit ory rectally as directed every 12 hours as needed for nausea COMP RO 25 MG RECTAL SUPP 164493 PROCHLORPERAZINE Inactive ONDANSETRON [address] one tablet on tongue and allow to dissolve every 6 hours as needed for vomitting ON DANSETRON 8 MG ORAL TBDP 723643 ONDANSETRON Inactive HYDROCODONE-ACETAMINOPHEN 5-325 MG TABS 0.5 to 1 tab b y mouth every 6 hours as needed HYDROCODONE-ACETAMINOPHEN 5-325 MG TABS 8 18951 HYDROCODONE-ACETAMINOPHEN Inactive CIPRO 500 MG TAB 1 tablet by mouth twice daily CIPRO 500 MG TAB 254504 CIPROFLOXACIN HCL Inactive FLUCONAZOLE 150 MG TABS take 1 tab po qday once 04/06 FLUCONAZOLE 150 MG TABS 201248 FLUCONAZOLE Inactive ZITHROMAX Z-KARTHIK 250 MG TABS 2 today, then 1 daily for 4 days 201 09/18/28 ZITHROMAX Z-KARTHIK 250 MG TABS 8500589 AZITHROMYCIN Inac tive PREDNISONE 20 MG TAB 2 tabs daily for 3 days, 1 t ab daily for 3 days, 1/2 tab daily for 2 days PREDNISONE 20 MG TAB 671276 PREDNISON E Inactive AZITHROMYCIN 250 MG TABS 2 po qd x 1 day, then 1 po qd x 4 days AZITHROMYCIN 250 MG TABS 4361076 AZITHROMYCIN Inactiv e PREDNISONE 20 MG TAB 2 tabs daily for 3 days, 1 t ab daily for 3 days, 1/2 tab daily for 2 days PREDNISONE 20 MG TAB 022792 PREDNISON E Inactive CEFDINIR 300 MG CAPS by mouth twice a day CEFDINIR 300 MG CAPS 840382 CEFDINIR Inactive TRIAMCINOLONE ACETONIDE 0.1 % OINT Apply to affected a reas TID for up to 2 weeks TRIAMCINOLONE ACETONIDE 0.1 % OINT 446851 6 TRIAMCINOLONE ACETONIDE Inactive PREDNISONE 20 MG TAB 2 tabs daily for 3 days, 1 t ab daily for 3 days, 1/2 tab daily for 2 days PREDNISONE 20 MG TAB 518993 PREDNISON E Inactive BACTRIM DS 800-160 MG TABS 1 po BID x 7 days 0 BACTRIM DS 800-160 MG TABS SULFAMETHOXAZOLE-TRIMETHOPRIM Inactive CIPRO 500 MG TAB 1 tablet by mouth twice daily CIPRO 500 MG TAB 519655 CIPROFLOXACIN HCL Inactive AZITHROMYCIN 250 MG TABS 2 po qd x 1 day, then 1 po qd x 4 days AZITHROMYCIN 250 MG TABS 7460792 AZITHROMYCIN Inactiv e Immunizations Vaccine Administration Date [...] Comp. Metabolic Panel, Lipid Panel - Chemistry urea nitrogen, blood 11 mg/dL 7-18 creatinine, serum 0.70 mg/dL 0.60-1.30 alanine aminotransferase (SGPT), serum 12 U/L 12-78 aspartate aminotransferase (SGOT), serum 14 U/L 15-37 alkaline phosphatase, serum 64 U/L 50-136 calcium, serum 8.6 mg/dL 8.5-10.1 bilirubin, serum, total 0.80 mg/dL 0.00-1.00 cholesterol, serum 147 mg/dL 065-287 9977/10/24 triglyceride, serum, fasting 112 mg/dL 30-200 HDL cholesterol, serum 40 mg/dL 32-96 LDL cholesterol, serum 85 mg/dL 0-130 blood glucose 78 mg/dL 65-110 carbon dioxide, venous blood 30.9 mmol/L 21.0-32 .0 chloride, serum 102 mmol/L 98-107 potassium, serum 4.1 mmol/L 3.5-5.2 sodium, serum 139 mmol/L 136-145 Lab Report: UADIP W/MICRO, AUTO - Chemis [...] 1.025 1.000-1.030 pH, urine, semiquantitative 7.0 5.0-8.5 urine color Unable to read macroscopic due t o interfering substance Colorless;Lightyellow;Straw;Yellow appearance, urine red-orange clear Clear Encounters Code Encounter Date Provider Facility CPT-66791 Level 3 Est. Patient 15:56:22 CDT Checo Conklin MD [facility] CPT-91715 Level 3 Est. Patient 15:29:07 CDT Checo Conklin MD [facility] CPT-45102 Level 3 Est. Patient 14:38:41 CDT Checo Conklin MD [facility] CPT-86942 Level 3 Est. Patient 15:22:03 S[employer]IOR APPLICATION SOFTWARE ENGINEER Thomas reynolds DO [facility] CPT-84092 Level 3 Est. Patient 13:34:17 SENIOR APPLICATION SOFTWARE ENGINEER Checo Conklin MD [facility] CPT-95612 Level 3 Est. Patient 12:29:32 CDT Dangelo arroyo MD [facility] CPT-21760 Level 3 Est. Patient 16:53:02 CDT Checo Conklin MD [facility] CPT-40327 Level 3 Est. Patient 16:37:13 CDT Checo Conklin MD [facility] CPT-85716 Level 3 Est. Patient 16:16:59 CDT Paul Hamlin MD [facility] CPT-97056 Level 3 Est. Patient 14:20:13 CDT Dangelo arroyo MD [facility] CPT-07416 Level 4 Est. Patient 11:29:33 CDT Checo Conklin MD [facility] CPT-80168 Level 3 Est. Patient 17:08:31 CDT Checo Conklin MD [facility] CPT-49975 Level 3 Est. Patient 16:50:42 SENIOR APPLICATION SOFTWARE ENGINEER Checo Conklin MD [facility] CPT-36709 Level 4 Est. Patient 09:26:08 SENIOR APPLICATION SOFTWARE ENGINEER Checo Conklin MD [facility] CPT-65184 Level 3 Est. Patient 11:37:10 CDT Checo Conklin MD [facility] CPT-95874 Level 4 Est. Patient 14:07:38 CDT Checo Conklin MD [facility] CPT-36649 Level 3 Est. Patient 09:54:41 CDT Checo Conklin MD [facility] CPT-09907 Level 3 Est. Patient 11:10:54 CDT Paul Hamlin MD [facility] CPT-55924 Level 3 Est. Patient 14:16:56 SENIOR APPLICATION SOFTWARE ENGINEER Checo Conklin MD [facility] CPT-85269 Level 3 Est. Patient 11:04:11 SENIOR APPLICATION SOFTWARE ENGINEER Checo Conklin MD [facility] CPT-50427 Level 3 Est. Patient 17:09:26 CDT Dangelo arroyo MD [facility] CPT-56346 Level 3 Est. Patient 16:54:37 CDT Checo Conklin MD [facility] Procedures Code Procedure Name Date Entry Date Standard Desc ription CPT-OV Office Visit 11:31:28 CDT CPT-37782 Tubersol 09:39:29 CDT CPT-J2550 Phenergan 25 mg (Promethazine) 13:59:02 SENIOR APPLICATION SOFTWARE ENGINEER CPT-J1885 Toradol 60 mg (Ketorolac) 13:59:02 SENIOR APPLICATION SOFTWARE ENGINEER 2012
--- OUTSIDE RECORDS SUMMARY | 2019-09-29 01:41 | XMS REPORT | Clinical Summary ---
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 Pylori AMOXICILLIN 56122873504 No Longer Active Corry Méndez REED MAN Active PAROXETINE HCL 20 MG ORAL TABLET 1.5 po qd PAR OXETINE HCL 48024400639 Active Checo Conklin MD Active FLUTICASONE PROPIONATE 50 MCG/ACT NASAL SUSPENSION 2 s prays/nostril qd PRN Congestion/Allergies FLUTICASONE PROPIONATE 5157860536 9 No Longer Active Checo Conklin MD Active AMOXICILLIN 500 MG ORAL CAPSULE 2 po BID x 10 days 201 01/15/27 AMOXICILLIN 36129195806 No Longer Active Checo Conklin MD Activ e MIRALAX ORAL POWDER 8.5 to 17g po qd PRN Constipation POLYETHYLENE GLYCOL 3350 96033564949 Active Checo Conklin MD Active CLARITIN 10 MG ORAL TABLET 1 tablet by mouth daily as needed for allergies LORATADINE 37217562142 No Longer Active Checo Ortiz MD Active BACTRIM DS 800-160 MG ORAL TABLET 1 tab by mouth twice daily 201 12/19/26 TRIMETHOPRIM-SULFAMETHOXAZOLE 19786479519 No Longer Active Ragini Carrillo MD Active DIFLUCAN 150 MG ORAL TABLET 1 tablet by mouth qod 2015 FLUCONAZOLE 36680424596 No Longer Active 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 DEXMETHYLPHENIDATE HCL 23702683606 Active Checo Conklin MD Active MAGNESIUM CITRATE 1.745 GM/30ML ORAL SOLUTION 150ml po BID P RN Constipation MAGNESIUM CITRATE 32139427733 No Longer Active Checo Conklin MD Active BACTROBAN 2 % EXTERNAL CREAM Apply to affected area BID for up to 10 days MUPIROCIN CALCIUM 83276038564 No Longer Active Checo Conklin MD Active HYDROCODONE-ACETAMINOPHEN 5-325 MG ORAL TABLET 1 tab b y mouth every 6 hours as needed HYDROCODONE-ACETAMINOPHEN 69789484168 No Longer Active Checo Conklin MD Active IBUPROFEN 800 MG ORAL TABLET 1 tab every 8 hours with food 03/20 IBUPROFEN 85686081598 No Longer Active Checo Conklin MD Active DIFLUCAN 150 MG ORAL TABLET 1 tablet by mouth if neede d, hold until symptoms start FLUCONAZOLE 04869999800 No Longer Active Checo Conklin MD Active BACTRIM DS 800-160 MG ORAL TABLET 1 tab by mouth twice daily 201 11/23/03 TRIMETHOPRIM-SULFAMETHOXAZOLE 98883049942 No Longer Active K bernice Méndez LPN Active HYDROCODONE-ACETAMINOPHEN 5-325 MG ORAL TABLET 0.5 to 1 tab by mouth every 6 hours as needed HYDROCODONE-ACETAMINOPHEN 81851693787 No Longer Active Checo Conklin MD Active ONDANSETRON 8 MG ORAL TABLET DISINTEGRATING place one tablet on tongue and allow to dissolve every 6 hours as needed for vomitting ONDANSETRON 45758040534 No Longer Active Checo Conklin MD Activ e COMPRO 25 MG RECTAL SUPPOSITORY insert or apply one garza ppository rectally as directed every 12 hours as needed for nausea PROCHLORPERAZINE 84955520978 No Longer Active Checo Conklin MD A ctive SUMATRIPTAN SUCCINATE 100 MG ORAL TABLET Take one PRN for migran e SUMATRIPTAN SUCCINATE 47348645971 No Longer Active Checo Conklin MD Active TRAVEL SICKNESS 25 MG ORAL TABLET CHEWABLE chew and sw allow one tablet every 6 hours as needed MECLIZINE HCL 76009077989 No Longer A ctive Checo Conklin MD Active BUPROPION HCL ER (SR) 100 MG ORAL TABLET EXTENDED RELE ASE 12 HOUR take one tablet by mouth one time daily for one week then take 1 two times daily BUPROPION HCL 17991910138 No Longer Active Checo gallagher MD Active TERBINAFINE HCL 250 MG ORAL TABLET take one table PO one time da moises TERBINAFINE HCL 29646459496 No Longer Active Checo Conklin MD Active METOCLOPRAMIDE HCL 10 MG ORAL TABLET take one PO tid PRN nausea METOCLOPRAMIDE HCL 50246651327 No Longer Active Checo Conklin MD Active DICLOFENAC SODIUM 75 MG ORAL TABLET DELAYED RELEASE 1 tablet by mouth twice daily PRN Knee pain DICLOFENAC SODIUM 84117498169 No Longer Active Checo Conklin MD Active LAMISIL 250 MG ORAL TABLET 1 po qd TERBINAFI NE HCL 94093615721 No Longer Active Checo Conklin MD Active REGLAN 10 MG ORAL TABLET 1 po TID PRN Nausea 3 METOCLOPRAMIDE HCL 34342350384 No Longer Active Checo Conklin MD Active CELEXA 20 MG ORAL TABLET 1 tablet by mouth daily 09/26 CITALOPRAM HYDROBROMIDE 45495834365 No Longer Active Checo Conklin MD Active AZITHROMYCIN 250 MG ORAL TABLET 2 po qd x 1 day, then 1 po q d x 4 days AZITHROMYCIN 04256310895 No Longer Active Checo Ortiz MD Active HYDROCODONE-ACETAMINOPHEN 5-325 MG ORAL TABLET 1 po q 6hr PRN Pa in HYDROCODONE-ACETAMINOPHEN 19384742107 No Longer Active Lenora Conklin MD Active PHENAZOPYRIDINE HCL 200 MG ORAL TABLET take 1 tab po TID for bladder pain PHENAZOPYRIDINE HCL 40102997491 No Longer Active Joe Conklin MD Active CIPRO 500 MG ORAL TABLET 1 tablet by mouth twice daily CIPROFLOXACIN HCL 08973473730 No Longer Active Dangelo Rangel MD Active HYDROCODONE-ACETAMINOPHEN 5-325 MG ORAL TABLET 1/2 to 1 po q 4 hours prn cough HYDROCODONE-ACETAMINOPHEN 43935449813 No Longer Activ candy Rangel MD Active BACTRIM DS 800-160 MG ORAL TABLET 1 po BID x 7 days 29/04/10 SULFAMETHOXAZOLE-TRIMETHOPRIM 61698583891 No Longer Active Checo Conklin MD Active PREDNISONE 20 MG ORAL TABLET 2 tabs daily for 3 days, 1 tab daily for 3 days, 1/2 tab daily for 2 days PREDNISONE 52165895260 No Longer Active Checo Conklin MD Active TRIAMCINOLONE ACETONIDE 0.1 % EXTERNAL OINTMENT Apply to affected areas TID for up to 2 weeks TRIAMCINOLONE ACETONIDE 99579788492 No Longer Active Checo Conklin MD Active CEFDINIR 300 MG ORAL CAPSULE by mouth twice a day 2013 CEFDINIR 94966704634 No Longer Active Dangelo Rangel MD Acti ve BUPROPION HCL ER (SMOKING DET) 150 MG ORAL TABLET EXTE NDED RELEASE 12 HOUR 1 a day for 1 week then 1 twice a day BUPROPION HCL (SMOKING DETER) 67121951715 No Longer Active Checo Conklin MD Active SIMVASTATIN 20 MG ORAL TABLET 1 po qd SIMVASTAT IN 08842394362 Active Checo Conklin MD Active CHANTIX STARTING MONTH KARTHIK 0.5 MG X 11 & 1 MG X 42 ORA L TABLET 0.5mg daily for 3 days, then 0.5mg BID for 4 days, then 1mg BID VARENICLINE TARTRATE 25289467638 No Longer Active Cehco Conklin MD Activ e XANAX 0.5 MG ORAL TABLET 1 po BID PRN anxiety A LPRAZOLAM 93025975405 Active Checo Conklin MD Active CONCERTA 18 MG ORAL TABLET EXTENDED RELEASE 1 po q a.m. METHYLPHENIDATE HCL 97281302366 No Longer Active Checo Conklin MD Active AMBIEN 5 MG ORAL TABLET 1 po qHS PRN Insomnia Z OLPIDEM TARTRATE 72851478351 Active Checo Conklin MD Active TRAZODONE HCL 100 MG ORAL TABLET 0.5 to 1 po qHS PRN Insomnia 20 30/07/08 TRAZODONE HCL 42398251131 No Longer Active Checo Conklin MD Active FIORICET 325-50-40 MG TAB 1 tablet by mouth four times daily as needed [id number] 93769312936 No Longer Active Checo Conklin MD Active PHENERGAN CREAM* 25mg applied to wrist q6hr PRN Nausea PHENERGAN CREAM* No Longer Active Checo Conklin MD A ctive FLONASE 50 MCG/ACT NASAL SUSPENSION 1 spray each nostril am and hs FLUTICASONE PROPIONATE 45445750586 No Longer Active Checo Conklin MD Active ANTIPYRINE-BENZOCAINE 5.4-1.4 % OTIC SOLUTION 1-2 drops in affec yohannes ear BENZOCAINE-ANTIPYRINE 85001579372 No Longer Active Checo Conklin MD Active CEFDINIR 300 MG ORAL CAPSULE 1 po bid CEFDINIR 90753915190 No Longer Active Checo Conklin MD Active PREDNISONE 20 MG ORAL TABLET 2 tabs daily for 3 days, 1 tab daily for 3 days, 1/2 tab daily for 2 days PREDNISONE 07510141911 No Longer Active Checo Conklin MD Active AZITHROMYCIN 250 MG ORAL TABLET 2 po qd x 1 day, then 1 po q d x 4 days AZITHROMYCIN 95555372912 No Longer Active Checo Ortiz MD Active PREDNISONE 20 MG ORAL TABLET 2 tabs daily for 3 days, 1 tab daily for 3 days, 1/2 tab daily for 2 days PREDNISONE 75788588945 No Longer Active Checo Conklin MD Active ZITHROMAX Z-KARTHIK 250 MG ORAL TABLET 2 today, then 1 daily for 4 d ays AZITHROMYCIN 44064313917 No Longer Active Paul Hamlin MD Active FOCALIN XR 10 MG ORAL CAPSULE EXTENDED RELEASE 24 HOUR 1 po q a. m. DEXMETHYLPHENIDATE HCL 14175251752 No Longer Active Paul Hamlin MD Active PERCOCET 10-325 MG ORAL TABLET 1 tablet every 6 hours as needed for pain OXYCODONE-ACETAMINOPHEN 22829819914 No Longer Active Paul Hamlin MD Active LORTAB 5-500 MG ORAL TABLET 1/2 to 1 tablet by mouth e very 4 hours as needed for pain HYDROCODONE-ACETAMINOPHEN 50611610064 No Longer Active Checo Conklin MD Active FOCALIN XR 15 MG ORAL CAPSULE EXTENDED RELEASE 24 HOUR 1 po q a. m. DEXMETHYLPHENIDATE HCL 38852666213 No Longer Active Checo Conklin MD Active ZOFRAN ODT 4 MG ORAL TABLET DISINTEGRATING 1 po q6hr PRN Nausea ONDANSETRON 60905482074 No Longer Active Checo Conklin MD Active PERCOCET 5-325 MG ORAL TABLET 1 tablet by mouth every 6 hour s as needed OXYCODONE-ACETAMINOPHEN 76600903768 No Longer Active Checo Conklin MD Active PYRIDIUM 200 MG ORAL TABLET take 1 tab po TID prn urinary pain. PHENAZOPYRIDINE HCL 35479425352 No Longer Active Checo Joshua Active FLUCONAZOLE 150 MG ORAL TABLET take 1 tab po qday once FLUCONAZOLE 25650418202 No Longer Active Dangelo Rangel MD Acti ve CIPRO 500 MG ORAL TABLET 1 tablet by mouth twice daily CIPROFLOXACIN HCL 82843004824 No Longer Active Dangelo Rangel MD Active PYRIDIUM 200 MG ORAL TABLET take 1 tab po TID prn urinary pain. PYRIDIUM 200 MG ORAL TABLET 7771597 PHENAZOPYRIDINE HCL Inactive PERCOCET 5-325 MG ORAL TABLET 1 tablet by mouth every 6 hour s as needed PERCOCET 5-325 MG ORAL TABLET 9361926 OXYCODONE-ACETAMINOPHEN Inactive ZOFRAN ODT 4 MG ORAL TABLET DISINTEGRATING 1 po q6hr PRN Nausea ZOFRAN ODT 4 MG ORAL TABLET DISINTEGRATING 196477 ONDAN SETRON Inactive FOCALIN XR 15 MG ORAL CAPSULE EXTENDED RELEASE 24 HOUR 1 po q a. m. FOCALIN XR 15 MG ORAL CAPSULE EXTENDED RELEASE 24 HOUR DEXMETHYLPHENIDATE HCL Inactive LORTAB 5-500 MG ORAL TABLET 1/2 to 1 tablet by mouth e very 4 hours as needed for pain LORTAB 5-500 MG ORAL TABLET 859207 HYDROCODONE-ACETAMINOPHEN Inactive PERCOCET 10-325 MG ORAL TABLET 1 tablet every 6 hours as needed for pain PERCOCET 10-325 MG ORAL TABLET 1090616 OXYCODONE-ACETAMI NOPHEN Inactive FOCALIN XR 10 MG ORAL CAPSULE EXTENDED RELEASE 24 HOUR 1 po q a. m. FOCALIN XR 10 MG ORAL CAPSULE EXTENDED RELEASE 24 HOUR DEXMETHYLPHENIDATE HCL Inactive CEFDINIR 300 MG ORAL CAPSULE 1 po bid CEFDINI R 300 MG ORAL CAPSULE 864607 CEFDINIR Inactive ANTIPYRINE-BENZOCAINE 5.4-1.4 % OTIC SOLUTION 1-2 drops in affec yohannes ear ANTIPYRINE-BENZOCAINE 5.4-1.4 % OTIC SOLUTION 260122 BENZOCAINE-ANTIPYRINE Inactive FLONASE 50 MCG/ACT NASAL SUSPENSION 1 spray each nostril am and hs FLONASE 50 MCG/ACT NASAL SUSPENSION 4378241 FLUTICASONE PROPIONATE I nactive PHENERGAN CREAM* 25mg applied to wrist q6hr PRN Nausea PHENERGAN CREAM* Inactive FIORICET 325-50-40 MG TAB 1 tablet by mouth four times daily as needed FIORICET 325-50-40 MG TAB ACETAMINOPHEN-C AFF-BUTALBITAL Inactive TRAZODONE HCL 100 MG ORAL TABLET 0.5 to 1 po qHS PRN Insomnia 20 30/07/08 TRAZODONE HCL 100 MG ORAL TABLET 005321 TRAZODONE HCL Inactive CONCERTA 18 MG ORAL [...] cough HYDROCODONE-ACETAMINOPHEN 5-325 MG ORAL TABLET 8 20422 HYDROCODONE-ACETAMINOPHEN Inactive PHENAZOPYRIDINE HCL 200 MG ORAL TABLET take 1 tab po TID for bladder pain PHENAZOPYRIDINE HCL 200 MG ORAL TABLET 6239133 PHENAZOPYRIDINE HCL Inactive HYDROCODONE-ACETAMINOPHEN 5-325 MG ORAL TABLET 1 po q 6hr PRN Pa in HYDROCODONE-ACETAMINOPHEN 5-325 MG ORAL TABLET 829624 HYDROCODONE-ACETAMINOPHEN Inactive CELEXA 20 MG ORAL TABLET 1 tablet by mouth daily 09/26 CELEXA 20 MG ORAL TABLET 760518 CITALOPRAM HYDROBROMIDE Inactive REGLAN 10 MG ORAL TABLET 1 po TID PRN Nausea 3 REGLAN 10 MG ORAL TABLET 200885 METOCLOPRAMIDE HCL Inactive LAMISIL 250 MG ORAL TABLET 1 po qd L AMISIL 250 MG ORAL TABLET 265076 TERBINAFINE HCL Inactive DICLOFENAC SODIUM 75 MG ORAL TABLET DELAYED RELEASE 1 tablet by mouth twice daily PRN Knee pain DICLOFENAC SODIUM 75 MG ORAL TABLET DELAYED RELEASE 216205 DICLOFENAC SODIUM Inactive METOCLOPRAMIDE HCL 10 MG ORAL TABLET take one PO tid PRN nausea METOCLOPRAMIDE HCL 10 MG ORAL TABLET 717094 METOCLOPRAM ZACH HCL Inactive TERBINAFINE HCL 250 MG ORAL TABLET take one table PO one time da moises TERBINAFINE HCL 250 MG ORAL TABLET 809325 TERBINAFINE H CL Inactive BUPROPION HCL ER [...] SICKNESS 25 M G ORAL TABLET CHEWABLE 466956 MECLIZINE HCL Inactive SUMATRIPTAN SUCCINATE 100 MG ORAL TABLET Take one PRN for migran e SUMATRIPTAN SUCCINATE 100 MG ORAL TABLET 434896 SUMATRIPTAN SUCCINATE Inactive COMPRO 25 MG RECTAL SUPPOSITORY insert or apply one garza ppository rectally as directed every 12 hours as needed for nausea COMPRO 25 MG RECTAL SUPPOSITORY 946734 PROCHLORPERAZINE Inactive ONDANSETRON 8 MG ORAL TABLET DISINTEGRATING place one tablet on tongue and allow to dissolve every 6 hours as needed for vomitting ONDANSETRON 8 MG ORAL TABLET DISINTEGRATING 917462 ONDANSETRON Inactive HYDROCODONE-ACETAMINOPHEN 5-325 MG ORAL TABLET 0.5 to 1 tab by mouth every 6 hours as needed HYDROCODONE-ACETAMIN OPHEN 5-325 MG ORAL TABLET 843160 HYDROCODONE-ACETAMINOPHEN Inactive BACTRIM DS 800-160 MG ORAL TABLET 1 tab by mouth twice daily 201 11/23/03 BACTRIM DS 800-160 MG ORAL TABLET 383535 TRIMETHOPRIM-SULFAMETHOXAZOLE Inactive DIFLUCAN 150 MG ORAL TABLET 1 tablet by mouth if neede d, hold until symptoms start DIFLUCAN 150 MG ORAL TABLET 168347 FLUCONAZ OLE Inactive IBUPROFEN 800 MG ORAL TABLET 1 tab every 8 hours with food 03/20 IBUPROFEN 800 MG ORAL TABLET 657029 IBUPROFEN Krupa ctive HYDROCODONE-ACETAMINOPHEN 5-325 MG ORAL TABLET 1 tab b y mouth every 6 hours as needed HYDROCODONE-ACETAMINOPHEN 5-325 MG ORAL TABLET 061619 HYDROCODONE-ACETAMINOPHEN Inactive BACTROBAN 2 % EXTERNAL CREAM Apply to affected area BID for up to 10 days BACTROBAN 2 % EXTERNAL CREAM 959610 MUPIROCIN CA LCIUM Inactive MAGNESIUM CITRATE 1.745 GM/30ML ORAL SOLUTION 150ml po BID P RN Constipation MAGNESIUM CITRATE 1.745 GM/30ML ORAL SOLUTION 10 44363 MAGNESIUM CITRATE Inactive DIFLUCAN 150 MG ORAL TABLET 1 tablet by mouth qod 2015 DIFLUCAN 150 MG ORAL TABLET 703650 FLUCONAZOLE Inactive BACTRIM DS 800-160 MG ORAL TABLET 1 tab by mouth twice daily 201 12/19/26 BACTRIM DS 800-160 MG ORAL TABLET 769429 TRIMETHOPRIM-SULFAMETHOXAZOLE Inactive CLARITIN 10 MG ORAL TABLET 1 tablet by mouth daily as needed for allergies CLARITIN 10 MG ORAL TABLET 942258 LORATADINE I nactive FLUTICASONE PROPIONATE 50 MCG/ACT NASAL SUSPENSION 2 s prays/nostril qd PRN Congestion/Allergies FLUTICASONE PROPION ATE 50 MCG/ACT NASAL SUSPENSION 8189720 FLUTICASONE PROPIONATE Inactive CIPRO 500 MG ORAL TABLET 1 tablet by mouth twice daily CIPRO 500 MG ORAL TABLET 484132 CIPROFLOXACIN HCL Inactive FLUCONAZOLE 150 MG ORAL TABLET take 1 tab po qday once FLUCONAZOLE 150 MG ORAL TABLET 364716 FLUCONAZOLE Inactive ZITHROMAX Z-KARTHIK 250 MG ORAL TABLET 2 today, then 1 daily for 4 d ays ZITHROMAX Z-KARTHIK 250 MG ORAL TABLET 504735 AZITHROMYCIN Inactive PREDNISONE 20 MG ORAL TABLET 2 tabs daily for 3 days, 1 tab daily for 3 days, 1/2 tab daily for 2 days PREDNISONE 20 MG ORAL T ABLET 125712 PREDNISONE Inactive AZITHROMYCIN 250 MG ORAL TABLET 2 po qd x 1 day, then 1 po q d x 4 days AZITHROMYCIN 250 MG ORAL TABLET 166928 AZITHROMY SPARKLE Inactive PREDNISONE 20 MG ORAL TABLET 2 tabs daily for 3 days, 1 tab daily for 3 days, 1/2 tab daily for 2 days PREDNISONE 20 MG ORAL TABLET 894174 PREDNISONE Inactive CEFDINIR 300 MG ORAL CAPSULE by mouth twice a day 2013 CEFDINIR 300 MG ORAL CAPSULE 427375 CEFDINIR Inactive TRIAMCINOLONE ACETONIDE 0.1 % EXTERNAL OINTMENT Apply to affected areas TID for up to 2 weeks TRIAMCINOLONE ACETON ZACH 0.1 % EXTERNAL OINTMENT 3437565 TRIAMCINOLONE ACETONIDE Inactive PREDNISONE 20 MG ORAL TABLET 2 tabs daily for 3 days, 1 tab daily for 3 days, 1/2 tab daily for 2 days PREDNISONE 20 MG ORAL T ABLET 433320 PREDNISONE Inactive BACTRIM DS 800-160 MG ORAL TABLET 1 po BID x 7 days 29/04/10 BACTRIM DS 800-160 MG ORAL TABLET 966479 SULFAMETHOXAZOLE-TRIMETHOP RIM Inactive CIPRO 500 MG ORAL TABLET 1 tablet by mouth twice daily CIPRO 500 MG ORAL TABLET 954785 CIPROFLOXACIN HCL Inactive AZITHROMYCIN 250 MG ORAL TABLET 2 po qd x 1 day, then 1 po q d x 4 days AZITHROMYCIN 250 MG ORAL TABLET 673003 AZITHROMY SPARKLE Inactive FLAGYL 500 MG ORAL TABLET 1 tablet by mouth bid 04/13 FLAGYL 500 MG ORAL TABLET 162725 METRONIDAZOLE Inactive AZITHROMYCIN 250 MG ORAL TABLET 2 po qd x 1 day, then 1 po q d x 4 days AZITHROMYCIN 250 MG ORAL TABLET 797122 AZITHROMY SPARKLE Inactive AMOXICILLIN 500 MG ORAL CAPSULE 2 po BID x 10 days 01/15/27 AMOXICILLIN 500 MG ORAL CAPSULE 229435 AMOXICILLIN Inactive AMOXICILLIN 500 MG ORAL CAPSULE 2 po BID x 14 days for H. Pylori AMOXICILLIN 500 MG ORAL CAPSULE 950725 AMOXICILLIN Inactive CLARITHROMYCIN 500 MG ORAL TABLET 1 tab po BID x 14 days CLARITHROMYCIN 500 MG ORAL TABLET 881818 CLARITHROMYCIN Inacti ve FLAGYL 500 MG ORAL TABLET 1 tablet by mouth bid 08/29 FLAGYL 500 MG ORAL TABLET 928957 METRONIDAZOLE Inactive PROTONIX 40 MG ORAL TABLET DELAYED RELEASE 1 pill by m outh daily, for acid reflux PROTONIX 40 MG ORAL TABLET DELAYED RELEAS E 412980 PANTOPRAZOLE SODIUM Inactive Immunizations Vaccine Administration Date [...] PANEL - Chemistry cholesterol, serum 192 mg/dL 488-661 4346/02/20 HDL cholesterol, serum 31 mg/dL > OR [...] 11 .0-15.0 platelet count 218 THOUSAND/UL 10*3/mm3 398-195 3415/02/20 mean platelet volume 9.7 fL 7.5-12.5 Lab Report: Comp. Metabolic Panel, Eryth rocyte Sed Rate, UADIP W/MICRO, ... - Chemistry protein, total urine random Negative mg/dL Negative sodium, serum 139 mmol/L 187-283 5038/11/28 carbon dioxide, venous blood 26.0 mmol/L 21.0-32 [...] Negative Encounters Code Encounter Date Provider Facility CPT-44266 Level 3 Est. 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 Patient 13:05:44 CDT Paul Hamlin MD [facility] CPT-09806 Level 3 Est. Patient 11:29:55 CDT Checo Conklin MD [facility] CPT-32789 Level 4 Est. Patient 11:08:12 CUTTING ROOM SUPERVISOR Checo Conklin MD [facility] CPT-30412 Level 4 Est. Patient 16:06:48 CUTTING ROOM SUPERVISOR Checo Conklin MD [facility] CPT-24518 Level 3 Est. Patient 09:11:49 CDT Efren almendarez [facility] CPT-33006 Level 2 Est. Patient 19:53:27 CDT Tanner hill MD [facility] CPT-19179 Level 3 Est. Patient 09:15:34 CDT Efren almendarez [facility] CPT-27647 Level 3 Est. Patient 11:28:51 CUTTING ROOM SUPERVISOR Efren almendarez [facility] CPT-29141 Level 4 Est. Patient 13:55:46 CUTTING ROOM SUPERVISOR Checo Conklin MD [facility] CPT-48467 Level 4 Est. Patient 17:10:53 CDT Checo Conklin MD [facility] CPT-13863 Level 3 Est. Patient 15:56:22 CDT Checo Conklin MD [facility] CPT-59119 Level 3 Est. Patient 15:29:07 CDT Checo Conklin MD [facility] CPT-62510 Level 3 Est. Patient 14:38:41 CDT Checo Conklin MD [facility] CPT-19630 Level 3 Est. Patient 15:22:03 CUTTING ROOM SUPERVISOR Thomas reynolds DO [facility] CPT-51240 Level 3 Est. Patient 13:34:17 CUTTING ROOM SUPERVISOR Checo Conklin MD [facility] CPT-38743 Level 3 Est. Patient 12:29:32 CDT Dangelo arroyo MD [facility] CPT-02893 Level 3 Est. Patient 16:53:02 CDT Checo Conklin MD [facility] CPT-95980 Level 3 Est. Patient 16:37:13 CDT Checo Conklin MD [facility] CPT-98596 Level 3 Est. Patient 16:16:59 CDT Paul Hamlin MD [facility] CPT-57515 Level 3 Est. Patient 14:20:13 CDT Dangelo arroyo MD [facility] CPT-34268 Level 4 Est. Patient 11:29:33 CDT Checo Conklin MD [facility] CPT-96336 Level 3 Est. Patient 17:08:31 CDT Checo Conklin MD [facility] CPT-98521 Level 3 Est. Patient 16:50:42 CUTTING ROOM SUPERVISOR Checo Conklin MD [facility] CPT-25934 Level 4 Est. Patient 09:26:08 CUTTING ROOM SUPERVISOR Checo Conklin MD [facility] CPT-93835 Level 3 Est. Patient 11:37:10 CDT Checo Conklin MD [facility] CPT-62273 Level 4 Est. Patient 14:07:38 CDT Checo Conklin MD [facility] CPT-72875 Level 3 Est. Patient 09:54:41 CDT Checo Conklin MD [facility] CPT-30823 Level 3 Est. Patient 11:10:54 CDT Paul Hamlin MD [facility] CPT-88258 Level 3 Est. Patient 14:16:56 CUTTING ROOM SUPERVISOR Checo Conklin MD [facility] CPT-28255 Level 3 Est. Patient 11:04:11 CUTTING ROOM SUPERVISOR Checo Conklin MD [facility] CPT-53821 Level 3 Est. Patient 17:09:26 CDT Dangelo arroyo MD [facility] CPT-78321 Level 3 Est. Patient 16:54:37 CDT Checo Conklin MD [facility] Procedures Code Procedure Name Date Entry Date Standard Desc ription CPT-93082 Abd compl w upright - XRAY USE ONLY 1 1:36:54 CUTTING ROOM SUPERVISOR CPT-87862 UA w micro - LAB USE ONLY 17:06:46 CDT 2015 CPT-66349 [facility]CG Qual - LAB USE ONLY 17:06:46 CDT 05/06 CPT-81713 CMP - LAB USE ONLY 17:06:46 CDT CPT-56718 CBC with Diff - LAB USE ONLY 17:06:45 CDT 2 CPT-01914 Venipuncture Draw Fee 17:06:45 CDT CPT-LR Lesion Removal 19:53:27 CDT CPT-OV Office Visit 11:31:28 CDT CPT-47600 Tubersol 09:39:29 CDT CPT-J2550 Phenergan 25 mg (Promethazine) 13:59:02 CUTTING ROOM SUPERVISOR CPT-J1885 Toradol 60 mg (Ketorolac) 13:59:02 CUTTING ROOM SUPERVISOR 2012
--- OUTSIDE RECORDS SUMMARY | 2019-09-29 01:41 | XMS REPORT | Clinical Summary ---
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 [...] tab by mouth twice daily 2 TRIMETHOPRIM-SULFAMETHOXAZOLE 45081675576 No Longer Active Tanner Carrillo MD Active DIFLUCAN 150 MG TAB 1 tablet by mouth qod FLUCO NAZOLE 40750934164 No Longer Active Efren Medel APRN Active CLARITIN 10 MG TAB 1 tablet by mouth daily as needed for allergies LORATADINE 76596483838 Active Jillina Lizy MANAGER INSTRUMENTATION Active AZITHROMYCIN 250 MG TABS 2 po qd x 1 day, then 1 po qd x 4 days AZITHROMYCIN 13678524490 No Longer Active Jillina Lizy RIDDLEN Active FLAGYL 500 MG TAB 1 tablet by mouth bid METRONI DAZOLE 70602761043 No Longer Active Checo Conklin MD Active FOCALIN XR 10 MG ORAL [id number] 1 po q a.m. DEX METHYLPHENIDATE HCL 95831113927 Active Checo Conklin MD Active MAGNESIUM CITRATE 1.745 GM/30ML ORAL SOLN 150ml po BID PRN C onstipation MAGNESIUM CITRATE 69514431241 No Longer Active Checo Conklin MD Active BACTROBAN 2 % CREAM Apply to affected area BID for up to 10 days MUPIROCIN CALCIUM 23611949379 No Longer Active Checo Conklin MD Active HYDROCODONE-ACETAMINOPHEN 5-325 MG TABS 1 tab by mouth every 6 hours as needed HYDROCODONE-ACETAMINOPHEN 21991921546 No Longer Activ e Checo Conklin MD Active IBUPROFEN 800 MG TABS 1 tab every 8 hours with food 20 31/03/21 IBUPROFEN 03987690635 No Longer Active Checo Conklin MD Activ e DIFLUCAN 150 MG TAB 1 tablet by mouth if needed, hold until symptoms start FLUCONAZOLE 09897665604 No Longer Active Checo Ortiz MD Active BACTRIM DS 800-160 MG TAB 1 tab by mouth twice daily 2 TRIMETHOPRIM-SULFAMETHOXAZOLE 03045871497 No Longer Active Corry leong LPN Active MIRALAX PACK 1 po qd PRN Constipation POLYETHYL JOEL GLYCOL 3350 39843141738 Active Checo Conklin MD Active HYDROCODONE-ACETAMINOPHEN 5-325 MG TABS 0.5 to 1 tab b y mouth every 6 hours as needed HYDROCODONE-ACETAMINOPHEN 32964593598 No Longer Active Checo Conklin MD Active ONDANSETRON [address] one tablet on tongue and allow to dissolve every 6 hours as needed for vomitting ONDANSETRO N 12418731583 No Longer Active Checo Conklin MD Active COMPRO 25 MG RECTAL SUPP insert or apply one supposit ory rectally as directed every 12 hours as needed for nausea PROCHLORPERA ZINE 38321020338 No Longer Active Checo Conklin MD Active SUMATRIPTAN SUCCINATE 100 MG ORAL TABS Take one PRN for migrane SUMATRIPTAN SUCCINATE 28246103355 No Longer Active Checo Conklin MD Active TRAVEL SICKNESS 25 MG ORAL CHEW chew and swallow one t ablet every 6 hours as needed MECLIZINE HCL 49685489758 No Longer Active Joe Conklin MD Active BUPROPION HCL ER (SR) 100 MG ORAL [id number] take one t ablet by mouth one time daily for one week then take 1 two times daily BUPROPION HCL 88354600704 No Longer Active Checo Cnoklin MD Activ e TERBINAFINE HCL 250 MG ORAL TABS take one table PO one time abran y TERBINAFINE HCL 73130848815 No Longer Active Checo Conklin MD Active METOCLOPRAMIDE HCL 10 MG ORAL TABS take one PO tid PRN nausea 20 29/12/14 METOCLOPRAMIDE HCL 05537883022 No Longer Active Checo Conklin MD Active DICLOFENAC SODIUM 75 MG TBEC 1 tablet by mouth twice daily P RN Knee pain DICLOFENAC SODIUM 21272537075 No Longer Active Checo Conklin MD Active LAMISIL 250 MG TAB 1 po qd TERBINAFINE HCL 548 08336374 No Longer Active Checo Conklin MD Active REGLAN 10 MG TAB 1 po TID PRN Nausea METOCLOPRA MIDE HCL 21422256819 No Longer Active Checo Conklin MD Active CELEXA 20 MG TABS 1 tablet by mouth daily CITALOPRAM HYDROBROMIDE 13358059618 No Longer Active Checo Conklin MD Activ e AZITHROMYCIN 250 MG TABS 2 po qd x 1 day, then 1 po qd x 4 days AZITHROMYCIN 20976471701 No Longer Active Checo Conklin MD Active HYDROCODONE-ACETAMINOPHEN 5-325 MG TABS 1 po q 6hr PRN Pain 2013 HYDROCODONE-ACETAMINOPHEN 50168427157 No Longer Active Lenora Conklin MD Active PHENAZOPYRIDINE HCL 200 MG TABS take 1 tab po TID for bladder pa in PHENAZOPYRIDINE HCL 63247870476 No Longer Active Checo Jsohua Active CIPRO 500 MG TAB 1 tablet by mouth twice daily CIPROFLOXACIN HCL 64026299306 No Longer Active Dangelo Rangel MD Active HYDROCODONE-ACETAMINOPHEN 5-325 MG TABS 1/2 to 1 po q 4 hour s prn cough HYDROCODONE-ACETAMINOPHEN 21308354223 No Longer Activ e Dangelo Rangel MD Active BACTRIM DS 800-160 MG TABS 1 po BID x 7 days 0 SULFAMETHOXAZOLE-TRIMETHOPRIM 95996287067 No Longer Active Checo Conklin MD Active PREDNISONE 20 MG TAB 2 tabs daily for 3 days, 1 t ab daily for 3 days, 1/2 tab daily for 2 days PREDNISONE 54173878357 No Longer Active Checo Conklin MD Active TRIAMCINOLONE ACETONIDE 0.1 % OINT Apply to affected a reas TID for up to 2 weeks TRIAMCINOLONE ACETONIDE 30146339816 No Longer A ctive Checo Conklin MD Active CEFDINIR 300 MG CAPS by mouth twice a day CEFDI JAZZY 94689491076 No Longer Active Dangelo Rangel MD Active BUPROPION HCL (SMOKING DETER) 150 MG [id number] 1 a day for 1 week then 1 twice a day BUPROPION HCL (SMOKING DETER) 39564996448 No Lo nger Active Checo Conklin MD Active SIMVASTATIN 20 MG TABS 1 po qd SIMVASTATIN 2857483258 5 Active Checo Conklin MD Active CHANTIX STARTING MONTH KARTHIK 0.5 MG X 11 & 1 MG X 42 TAB S 0.5mg daily for 3 days, then 0.5mg BID for 4 days, then 1mg BID VARENICLINE TARTRATE 64031001887 No Longer Active Checo Conklin MD Activ e XANAX 0.5 MG TABS 1 po BID PRN anxiety ALPRAZOLAM 88253778860 Active Checo Conklin MD Active CONCERTA 18 MG CR-TABS 1 po q a.m. METHYLPHENID ATE HCL 20659294922 No Longer Active Checo Conklin MD Active AMBIEN 5 MG TAB 1 po qHS PRN Insomnia ZOLPIDEM TARTRATE 27995582835 Active Checo Conklin MD Active TRAZODONE HCL 100 MG TAB 0.5 to 1 po qHS PRN Insomnia TRAZODONE HCL 05500259003 No Longer Active Checo Conklin MD Acti ve FIORICET 325-50-40 MG TAB 1 tablet by mouth four times daily as needed [id number] 31555058183 No Longer Active Checo Conklin MD Active PHENERGAN CREAM* 25mg applied to wrist q6hr PRN Nausea PHENERGAN CREAM* No Longer Active Checo Conklin MD A ctive FLONASE 50 MCG/ACT SUSP 1 spray each nostril am and hs FLUTICASONE PROPIONATE 11572297252 No Longer Active Checo Conklin MD Activ e ANTIPYRINE-BENZOCAINE 5.4-1.4 % SOLN 1-2 drops in affected ear BENZOCAINE-ANTIPYRINE 74804137091 No Longer Active Checo Conklin MD Active CEFDINIR 300 MG CAPS 1 po bid CEFDINIR 96293317 120 No Longer Active Checo Conklin MD Active PREDNISONE 20 MG TAB 2 tabs daily for 3 days, 1 t ab daily for 3 days, 1/2 tab daily for 2 days PREDNISONE 91000671339 No Longer Active Aracelis Conklin MD Active AZITHROMYCIN 250 MG TABS 2 po qd x 1 day, then 1 po qd x 4 days AZITHROMYCIN 07020556236 No Longer Active Checo Conklin MD Active PREDNISONE 20 MG TAB 2 tabs daily for 3 days, 1 t ab daily for 3 days, 1/2 tab daily for 2 days PREDNISONE 22701503807 No Longer Active Checo Conklin MD Active ZITHROMAX Z-KARTHIK 250 MG TABS 2 today, then 1 daily for 4 days 201 09/18/28 AZITHROMYCIN 25410440163 No Longer Active Paul Hamlin MD Active FOCALIN XR 10 MG [id number] 1 po q a.m. D EXMETHYLPHENIDATE HCL 54894995693 No Longer Active Paul Hamlin MD Activ e PERCOCET 10-325 MG TABS 1 tablet every 6 hours as needed for pain OXYCODONE-ACETAMINOPHEN 11934699564 No Longer Active Paul Hamlin MD Active LORTAB 5 5-500 MG TABS 1/2 to 1 tablet by mouth flaquito ry 4 hours as needed for pain HYDROCODONE-ACETAMINOPHEN 45541637759 No Longer Active Checo Conklin MD Active FOCALIN XR 15 MG [id number] 1 po q a.m. D EXMETHYLPHENIDATE HCL 35645710820 No Longer Active Cheoc Conklin MD Activ e ZOFRAN ODT 4 MG TBDP 1 po q6hr PRN Nausea ONDAN SETRON 68535112278 No Longer Active Checo Conklin MD Active PERCOCET 5-325 MG TABS 1 tablet by mouth every 6 hours as needed OXYCODONE-ACETAMINOPHEN 17882647232 No Longer Active Checo Conklin MD Active PYRIDIUM 200 MG TABS take 1 tab po TID prn urinary pain. 0 PHENAZOPYRIDINE HCL 30915887067 No Longer Active Checo Conklin MD Active FLUCONAZOLE 150 MG TABS take 1 tab po qday once 0 04/06 FLUCONAZOLE 95065813383 No Longer Active Dangelo Rangel MD Acti ve CIPRO 500 MG TAB 1 tablet by mouth twice daily CIPROFLOXACIN HCL 70564268032 No Longer Active Dangelo Rangel MD Active PYRIDIUM 200 MG TABS take 1 tab po TID prn urinary pain. 0 PYRIDIUM 200 MG TABS 5006143 PHENAZOPYRIDINE HCL Inactive PERCOCET 5-325 MG TABS 1 tablet by mouth every 6 hours as needed PERCOCET 5-325 MG TABS 9817410 OXYCODONE-ACETAMINOPHEN I nactive ZOFRAN ODT 4 MG TBDP 1 po q6hr PRN Nausea ZOFRAN ODT 4 MG TBDP 805026 ONDANSETRON Inactive FOCALIN XR 15 MG [id number] 1 po q a.m. F OCALIN XR 15 MG [id number] DEXMETHYLPHENIDATE HCL Inactive LORTAB 5 5-500 MG TABS 1/2 to 1 tablet by mouth flaquito ry 4 hours as needed for pain LORTAB 5 5-500 MG TABS HYDROCODONE-A CETAMINOPHEN Inactive PERCOCET 10-325 MG TABS 1 tablet every 6 hours as needed for pain PERCOCET 10-325 MG TABS 6412688 OXYCODONE-ACETAMINOPHEN Inactive FOCALIN XR 10 MG [id number] 1 po q a.m. F OCALIN XR 10 MG [id number] DEXMETHYLPHENIDATE HCL Inactive CEFDINIR 300 MG CAPS 1 po bid CEFDINIR 300 MG CAPS 20 0346 CEFDINIR Inactive ANTIPYRINE-BENZOCAINE 5.4-1.4 % SOLN 1-2 drops in affected ear ANTIPYRINE-BENZOCAINE 5.4-1.4 % SOLN 058865 BENZOCAINE-ANTIPYRINE I nactive FLONASE 50 MCG/ACT SUSP [...] PRN Insomnia TRAZODONE HCL 100 MG TAB 159254 TRAZODONE HCL Inactive CONCERTA 18 MG CR-TABS [...] s prn cough HYDROCODONE-ACETAMINOPHEN 5-325 MG TABS 781352 HYDROCODONE-ACETAMINOPHEN Inactive PHENAZOPYRIDINE HCL 200 MG TABS take 1 tab po TID for bladder pa in PHENAZOPYRIDINE HCL 200 MG TABS 9296158 PHENAZOPYRIDINE HCL Inactive HYDROCODONE-ACETAMINOPHEN 5-325 MG TABS 1 po q 6hr PRN Pain 2013 HYDROCODONE-ACETAMINOPHEN 5-325 MG TABS 076061 HYDROCODONE-ACETAMINOPHEN Inactive CELEXA 20 MG TABS 1 tablet by mouth daily CELEXA 20 MG TABS 635748 CITALOPRAM HYDROBROMIDE Inactive REGLAN 10 MG TAB 1 po TID PRN Nausea REGLAN 10 MG TAB 798083 METOCLOPRAMIDE HCL Inactive LAMISIL 250 MG TAB 1 po qd LAMISIL 250 MG TAB 471167 TERBINAFINE HCL Inactive DICLOFENAC SODIUM 75 MG TBEC 1 tablet by mouth twice daily P RN Knee pain DICLOFENAC SODIUM 75 MG TBEC 590985 DICLOFENAC S ODIUM Inactive METOCLOPRAMIDE HCL 10 MG ORAL TABS take one PO tid PRN nausea 20 29/12/14 METOCLOPRAMIDE HCL 10 MG ORAL TABS 120002 METOCLOPRAMID E HCL Inactive TERBINAFINE HCL 250 MG ORAL TABS take one table PO one time abran y TERBINAFINE HCL 250 MG ORAL TABS 177487 TERBINAFINE HCL Inactive BUPROPION HCL ER (SR) 100 MG ORAL [id number] take one t ablet by mouth one time daily for one week then take 1 two times daily BUPROPION HCL ER (SR) 100 MG ORAL [id number] BUPROPION HCL Inacti ve TRAVEL SICKNESS 25 MG ORAL CHEW chew and swallow one t ablet every 6 hours as needed TRAVEL SICKNESS 25 MG ORAL CHEW 526277 MECLIZINE HCL Inactive SUMATRIPTAN SUCCINATE 100 MG ORAL TABS Take one PRN for migrane SUMATRIPTAN SUCCINATE 100 MG ORAL TABS 070843 SUMATRIPT AN SUCCINATE Inactive COMPRO 25 MG RECTAL SUPP insert or apply one supposit ory rectally as directed every 12 hours as needed for nausea COMP RO 25 MG RECTAL SUPP 566007 PROCHLORPERAZINE Inactive ONDANSETRON [address] one tablet on tongue and allow to dissolve every 6 hours as needed for vomitting ON DANSETRON 8 MG ORAL TBDP 975383 ONDANSETRON Inactive HYDROCODONE-ACETAMINOPHEN 5-325 MG TABS 0.5 to 1 tab b y mouth every 6 hours as needed HYDROCODONE-ACETAMINOPHEN 5-325 MG TABS 8 27913 HYDROCODONE-ACETAMINOPHEN Inactive BACTRIM DS 800-160 MG TAB 1 tab by mouth twice daily 2 BACTRIM DS 800-160 MG TAB 501995 TRIMETHOPRIM-SULFAMETHOXAZOLE Inac tive DIFLUCAN 150 MG TAB 1 tablet by mouth if needed, hold until symptoms start DIFLUCAN 150 MG TAB 045229 FLUCONAZOLE Inactive IBUPROFEN 800 MG TABS 1 tab every 8 hours with food 31/03/21 IBUPROFEN 800 MG TABS 831210 IBUPROFEN Inactive HYDROCODONE-ACETAMINOPHEN 5-325 MG TABS 1 tab by mouth every 6 hours as needed HYDROCODONE-ACETAMINOPHEN 5-325 MG TABS 364210 HYDROCODONE-ACETAMINOPHEN Inactive BACTROBAN 2 % CREAM Apply to affected area BID for up to 10 days BACTROBAN 2 % CREAM 019287 MUPIROCIN CALCIUM Inactive MAGNESIUM CITRATE 1.745 GM/30ML ORAL SOLN 150ml po BID PRN C onstipation MAGNESIUM CITRATE 1.745 GM/30ML ORAL SOLN 435647 0 MAGNESIUM CITRATE Inactive DIFLUCAN 150 MG TAB 1 tablet by mouth qod DIFLUCAN 150 MG TAB 408223 FLUCONAZOLE Inactive BACTRIM DS 800-160 MG TAB 1 tab by mouth twice daily 2 BACTRIM DS 800-160 MG TAB 625246 TRIMETHOPRIM-SULFAMETHOXAZOLE Inac tive CIPRO 500 MG TAB 1 tablet by mouth twice daily CIPRO 500 MG TAB 476831 CIPROFLOXACIN HCL Inactive FLUCONAZOLE 150 MG TABS take 1 tab po qday once 04/06 FLUCONAZOLE 150 MG TABS 735255 FLUCONAZOLE Inactive ZITHROMAX Z-KARTHIK 250 MG TABS 2 today, then 1 daily for 4 days 201 09/18/28 ZITHROMAX Z-KARTHIK 250 MG TABS 9233301 AZITHROMYCIN Inac tive PREDNISONE 20 MG TAB 2 tabs daily for 3 days, 1 t ab daily for 3 days, 1/2 tab daily for 2 days PREDNISONE 20 MG TAB 062020 PREDNISON E Inactive AZITHROMYCIN 250 MG TABS 2 po qd x 1 day, then 1 po qd x 4 days AZITHROMYCIN 250 MG TABS 2425873 AZITHROMYCIN Inactiv e PREDNISONE 20 MG TAB 2 tabs daily for 3 days, 1 t ab daily for 3 days, 1/2 tab daily for 2 days PREDNISONE 20 MG TAB 955883 PREDNISON E Inactive CEFDINIR 300 MG CAPS by mouth twice a day CEFDINIR 300 MG CAPS 912911 CEFDINIR Inactive TRIAMCINOLONE ACETONIDE 0.1 % OINT Apply to affected a reas TID for up to 2 weeks TRIAMCINOLONE ACETONIDE 0.1 % OINT 149983 6 TRIAMCINOLONE ACETONIDE Inactive PREDNISONE 20 MG TAB 2 tabs daily for 3 days, 1 t ab daily for 3 days, 1/2 tab daily for 2 days PREDNISONE 20 MG TAB 486333 PREDNISON E Inactive BACTRIM DS 800-160 MG TABS 1 po BID x 7 days 0 BACTRIM DS 800-160 MG TABS 583210 SULFAMETHOXAZOLE-TRIMETHOPRIM Inactive CIPRO 500 MG TAB 1 tablet by mouth twice daily CIPRO 500 MG TAB 354387 CIPROFLOXACIN HCL Inactive AZITHROMYCIN 250 MG TABS 2 po qd x 1 day, then 1 po qd x 4 days AZITHROMYCIN 250 MG TABS 5576719 AZITHROMYCIN Inactiv e FLAGYL 500 MG TAB 1 tablet by mouth bid FLAGYL 500 MG TAB 123833 METRONIDAZOLE Inactive AZITHROMYCIN 250 MG TABS 2 po qd x 1 day, then 1 po qd x 4 days AZITHROMYCIN 250 MG TABS 7595163 AZITHROMYCIN Inactiv e Immunizations Vaccine Administration Date [...] ... - Chemistry sodium, serum 141 mmol/L 154-041 3791/01/26 carbon dioxide, venous blood 30.0 mmol/L 21.0-32 .0 potassium, serum 4.0 mmol/L 3.5-5.2 chloride, serum 105 mmol/L 98-107 blood glucose 85 mg/dL 65-110 urea nitrogen, blood 9 mg/dL 7-18 creatinine, serum 0.66 mg/dL 0.55-1.30 alanine aminotransferase (SGPT), serum 31 U/L 12-78 aspartate aminotransferase (SGOT), serum 21 U/L 15-37 calcium, serum 8.2 mg/dL 8.5-10.1 bilirubin, serum, total 1.10 mg/dL 0.00-1.00 cholesterol, serum 178 mg/dL 107-442 4585/01/26 triglyceride, serum, fasting 149 mg/dL 30-200 HDL [...] ... - Chemistry sodium, serum 137 mmol/L 677-536 9687/05/27 carbon dioxide, venous blood 29.1 mmol/L 21.0-32 [...] 5.0-8.5 Encounters Code Encounter Date Provider Facility CPT-05491 Level 2 Est. Patient 19:53:27 CDT Tanner hill MD [facility] CPT-42134 Level 3 Est. Patient 09:15:34 CDT Efren almendarez [facility] CPT-88053 Level 3 Est. 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 CPT-47460 Level 4 Est. Patient 13:55:46 FOREIGN TRADE TEACHER Checo Conklin MD [facility] CPT-46771 Level 4 Est. Patient 17:10:53 CDT Checo Conklin MD [facility] CPT-07576 Level 3 Est. Patient 15:56:22 CDT Checo Conklin MD [facility] CPT-25984 Level 3 Est. Patient 15:29:07 CDT Checo Conklin MD [facility] CPT-92290 Level 3 Est. Patient 14:38:41 CDT Checo Conklin MD [facility] CPT-33701 Level 3 Est. Patient 15:22:03 FOREIGN TRADE TEACHER Thomas reynolds DO [facility] CPT-66304 Level 3 Est. Patient 13:34:17 FOREIGN TRADE TEACHER Checo Conklin MD [facility] CPT-72335 Level 3 Est. Patient 12:29:32 CDT Dangelo arroyo MD [facility] CPT-97503 Level 3 Est. Patient 16:53:02 CDT Checo Conklin MD [facility] CPT-48056 Level 3 Est. Patient 16:37:13 CDT Checo Conklin MD [facility] CPT-06488 Level 3 Est. Patient 16:16:59 CDT Paul Hamlin MD [facility] CPT-60195 Level 3 Est. Patient 14:20:13 CDT Dangelo arroyo MD [facility] CPT-64327 Level 4 Est. Patient 11:29:33 CDT Checo Conklin MD [facility] CPT-70243 Level 3 Est. Patient 17:08:31 CDT Checo Conklin MD [facility] CPT-56960 Level 3 Est. 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 Patient 09:26:08 FOREIGN TRADE TEACHER Checo Conklin MD [facility] CPT-57507 Level 3 Est. Patient 11:37:10 CDT Checo Conklin MD [facility] CPT-51680 Level 4 Est. Patient 14:07:38 CDT Checo Conklin MD [facility] CPT-94176 Level 3 Est. Patient 09:54:41 CDT Checo Conklin MD [facility] CPT-78498 Level 3 Est. Patient 11:10:54 CDT Paul Hamlin MD [facility] CPT-64848 Level 3 Est. 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 Patient 11:04:11 FOREIGN TRADE TEACHER Checo Conklin MD [facility] CPT-04987 Level 3 Est. Patient 17:09:26 CDT Dangelo arroyo MD [facility] CPT-65015 Level 3 Est. Patient 16:54:37 CDT Checo Conklin MD [facility] Procedures Code Procedure Name Date Entry Date Standard Desc ription CPT-LR Lesion Removal 19:53:27 CDT CPT-OV Office Visit 11:31:28 CDT CPT-93198 Tubersol 09:39:29 CDT CPT-J2550 Phenergan 25 mg (Promethazine) 13:59:02 FOREIGN TRADE TEACHER CPT-J1885 Toradol 60 mg (Ketorolac) 13:59:02 FOREIGN TRADE TEACHER 2012
--- OUTSIDE RECORDS SUMMARY | 2019-09-29 01:41 | XMS REPORT | Clinical Summary ---
Author Author Admin, Bethany Ayala [facility] Address Unknown Phone Unavailable Allergies, Adverse Reactions, [...] breast Breast mass, right 611.72 Resolved Checo irchey MD Lump or mass in breast Mastalgia [...] Abdominal pain, generalized 789.07 Active Efren Medel APRN Abdominal pain, generalized Nausea 787.02 Active Efren [...] TABLET 1.5 po qd PAR OXETINE HCL 21583683408 Active Checo Conklin MD Active FLUTICASONE PROPIONATE 50 MCG/ACT NASAL SUSPENSION 2 s prays/nostril qd PRN Congestion/Allergies FLUTICASONE PROPIONATE 2114127990 9 No Longer Active Checo Conklin MD Active AMOXICILLIN 500 MG ORAL CAPSULE 2 po BID x 10 days 201 01/15/27 AMOXICILLIN 92968968495 No Longer Active Checo Conklin MD Activ e MIRALAX ORAL POWDER 8.5 to 17g po qd PRN Constipation POLYETHYLENE GLYCOL 3350 09786733621 Active Checo Conklin MD Active CLARITIN 10 MG ORAL TABLET 1 tablet by mouth daily as needed for allergies LORATADINE 65744035800 No Longer Active Checo Ortiz MD Active BACTRIM DS 800-160 MG ORAL TABLET 1 tab by mouth twice daily 201 12/19/26 TRIMETHOPRIM-SULFAMETHOXAZOLE 11944426456 No Longer Active Ragini Carrillo MD Active DIFLUCAN 150 MG ORAL TABLET 1 tablet by mouth qod 2015 FLUCONAZOLE 15589529196 No Longer Active Efren Medel DIRECTOR HAIR Act mike AZITHROMYCIN 250 MG ORAL TABLET 2 po qd x 1 day, then 1 po q d x 4 days AZITHROMYCIN 13004919347 No Longer Active Efren flores DIRECTOR HAIR Active FLAGYL 500 MG ORAL TABLET 1 tablet by mouth bid 04/13 METRONIDAZOLE 39253532603 No Longer Active Checo Conklin MD Acti ve FOCALIN XR 10 MG ORAL CAPSULE EXTENDED RELEASE 24 HOUR 1 po q a.m. DEXMETHYLPHENIDATE HCL 65319907164 Active Checo Conklin MD Active MAGNESIUM CITRATE 1.745 GM/30ML ORAL SOLUTION 150ml po BID P RN Constipation MAGNESIUM CITRATE 41375978603 No Longer Active Checo Conklin MD Active BACTROBAN 2 % EXTERNAL CREAM Apply to affected area BID for up to 10 days MUPIROCIN CALCIUM 63038496159 No Longer Active Checo Conklin MD Active HYDROCODONE-ACETAMINOPHEN 5-325 MG ORAL TABLET 1 tab b y mouth every 6 hours as needed HYDROCODONE-ACETAMINOPHEN 71581823141 No Longer Active Checo Conklin MD Active IBUPROFEN 800 MG ORAL TABLET 1 tab every 8 hours with food 03/20 IBUPROFEN 17488332049 No Longer Active Checo Conklin MD Active DIFLUCAN 150 MG ORAL TABLET 1 tablet by mouth if neede d, hold until symptoms start FLUCONAZOLE 23088475607 No Longer Active Checo Conklin MD Active BACTRIM DS 800-160 MG ORAL TABLET 1 tab by mouth twice daily 201 11/23/03 TRIMETHOPRIM-SULFAMETHOXAZOLE 98872302669 No Longer Active K bernice Médnez LPN Active HYDROCODONE-ACETAMINOPHEN 5-325 MG ORAL TABLET 0.5 to 1 tab by mouth every 6 hours as needed HYDROCODONE-ACETAMINOPHEN 68966532309 No Longer Active Checo Conklin MD Active ONDANSETRON 8 MG ORAL TABLET DISINTEGRATING place one tablet on tongue and allow to dissolve every 6 hours as needed for vomitting ONDANSETRON 75384906348 No Longer Active Checo Conklin MD Activ e COMPRO 25 MG RECTAL SUPPOSITORY insert or apply one garza ppository rectally as directed every 12 hours as needed for nausea PROCHLORPERAZINE 14135921269 No Longer Active Checo Conklin MD A ctive SUMATRIPTAN SUCCINATE 100 MG ORAL TABLET Take one PRN for migran e SUMATRIPTAN SUCCINATE 12023300964 No Longer Active Checo Conklin MD Active TRAVEL SICKNESS 25 MG ORAL TABLET CHEWABLE chew and sw allow one tablet every 6 hours as needed MECLIZINE HCL 79454634779 No Longer A ctive Checo Conklin MD Active BUPROPION HCL ER (SR) 100 MG ORAL TABLET EXTENDED RELE ASE 12 HOUR take one tablet by mouth one time daily for one week then take 1 two times daily BUPROPION HCL 29499934894 No Longer Active Checo gallagher MD Active TERBINAFINE HCL 250 MG ORAL TABLET take one table PO one time da moises TERBINAFINE HCL 46045931933 No Longer Active Checo Conklin MD Active METOCLOPRAMIDE HCL 10 MG ORAL TABLET take one PO tid PRN nausea METOCLOPRAMIDE HCL 74309501566 No Longer Active Checo Conklin MD Active DICLOFENAC SODIUM 75 MG ORAL TABLET DELAYED RELEASE 1 tablet by mouth twice daily PRN Knee pain DICLOFENAC SODIUM 09223960378 No Longer Active Checo Conklin MD Active LAMISIL 250 MG ORAL TABLET 1 po qd TERBINAFI NE HCL 18876600807 No Longer Active Checo Conklin MD Active REGLAN 10 MG ORAL TABLET 1 po TID PRN Nausea 3 METOCLOPRAMIDE HCL 82819043214 No Longer Active Checo Conklin MD Active CELEXA 20 MG ORAL TABLET 1 tablet by mouth daily 09/26 CITALOPRAM HYDROBROMIDE 43705895029 No Longer Active Checo Conklin MD Active AZITHROMYCIN 250 MG ORAL TABLET 2 po qd x 1 day, then 1 po q d x 4 days AZITHROMYCIN 87677751176 No Longer Active Checo Ortiz MD Active HYDROCODONE-ACETAMINOPHEN 5-325 MG ORAL TABLET 1 po q 6hr PRN Pa in HYDROCODONE-ACETAMINOPHEN 73360091084 No Longer Active Lenora Conklin MD Active PHENAZOPYRIDINE HCL 200 MG ORAL TABLET take 1 tab po TID for bladder pain PHENAZOPYRIDINE HCL 46249033996 No Longer Active Joe Conklin MD Active CIPRO 500 MG ORAL TABLET 1 tablet by mouth twice daily CIPROFLOXACIN HCL 96804723950 No Longer Active Dangelo Rangel MD Active HYDROCODONE-ACETAMINOPHEN 5-325 MG ORAL TABLET 1/2 to 1 po q 4 hours prn cough HYDROCODONE-ACETAMINOPHEN 08028042529 No Longer Activ e Dangelo Rangel MD Active BACTRIM DS 800-160 MG ORAL TABLET 1 po BID x 7 days 29/04/10 SULFAMETHOXAZOLE-TRIMETHOPRIM 31816867058 No Longer Active Checo Conklin MD Active PREDNISONE 20 MG ORAL TABLET 2 tabs daily for 3 days, 1 tab daily for 3 days, 1/2 tab daily for 2 days PREDNISONE 90132185228 No Longer Active Checo Conklin MD Active TRIAMCINOLONE ACETONIDE 0.1 % EXTERNAL OINTMENT Apply to affected areas TID for up to 2 weeks TRIAMCINOLONE ACETONIDE 40885387653 No Longer Active Checo Conklin MD Active CEFDINIR 300 MG ORAL CAPSULE by mouth twice a day 2013 CEFDINIR 47238838638 No Longer Active Dangelo Rangel MD Acti ve BUPROPION HCL ER (SMOKING DET) 150 MG ORAL TABLET EXTE NDED RELEASE 12 HOUR 1 a day for 1 week then 1 twice a day BUPROPION HCL (SMOKING DETER) 86638828715 No Longer Active Checo Conklin MD Active SIMVASTATIN 20 MG ORAL TABLET 1 po qd SIMVASTAT IN 34127266391 Active Checo Conklin MD Active CHANTIX STARTING MONTH KARTHIK 0.5 MG X 11 & 1 MG X 42 ORA L TABLET 0.5mg daily for 3 days, then 0.5mg BID for 4 days, then 1mg BID VARENICLINE TARTRATE 68460179509 No Longer Active Checo Conklin MD Activ e XANAX 0.5 MG ORAL TABLET 1 po BID PRN anxiety A LPRAZOLAM 25068919262 Active Checo Conklin MD Active CONCERTA 18 MG ORAL TABLET EXTENDED RELEASE 1 po q a.m. METHYLPHENIDATE HCL 51991204902 No Longer Active Checo Conklin MD Active AMBIEN 5 MG ORAL TABLET 1 po qHS PRN Insomnia Z OLPIDEM TARTRATE 25057382249 Active Checo Conklin MD Active TRAZODONE HCL 100 MG ORAL TABLET 0.5 to 1 po qHS PRN Insomnia 20 30/07/08 TRAZODONE HCL 67087860630 No Longer Active Checo Conklin MD Active FIORICET 325-50-40 MG TAB 1 tablet by mouth four times daily as needed [id number] 45324769083 No Longer Active Checo Conklin MD Active PHENERGAN CREAM* 25mg applied to wrist q6hr PRN Nausea PHENERGAN CREAM* No Longer Active Checo Gonzales ctive FLONASE 50 MCG/ACT NASAL SUSPENSION 1 spray each nostril am and hs FLUTICASONE PROPIONATE 87757903349 No Longer Active Checo Conklin MD Active ANTIPYRINE-BENZOCAINE 5.4-1.4 % OTIC SOLUTION 1-2 drops in affec yohannes ear BENZOCAINE-ANTIPYRINE 71241586765 No Longer Active Checo Conklin MD Active CEFDINIR 300 MG ORAL CAPSULE 1 po bid CEFDINIR 72473726137 No Longer Active Checo Conklin MD Active PREDNISONE 20 MG ORAL TABLET 2 tabs daily for 3 days, 1 tab daily for 3 days, 1/2 tab daily for 2 days PREDNISONE 83439045533 No Longer Active Checo Conklin MD Active AZITHROMYCIN 250 MG ORAL TABLET 2 po qd x 1 day, then 1 po q d x 4 days AZITHROMYCIN 83975634961 No Longer Active Checo Otriz MD Active PREDNISONE 20 MG ORAL TABLET 2 tabs daily for 3 days, 1 tab daily for 3 days, 1/2 tab daily for 2 days PREDNISONE 65684058074 No Longer Active Checo Conklin MD Active ZITHROMAX Z-KARTHIK 250 MG ORAL TABLET 2 today, then 1 daily for 4 d ays AZITHROMYCIN 05864659662 No Longer Active Paul Hamlin MD Active FOCALIN XR 10 MG ORAL CAPSULE EXTENDED RELEASE 24 HOUR 1 po q a. m. DEXMETHYLPHENIDATE HCL 07273438730 No Longer Active Paul Hamlin MD Active PERCOCET 10-325 MG ORAL TABLET 1 tablet every 6 hours as needed for pain OXYCODONE-ACETAMINOPHEN 12351152349 No Longer Active Paul Hamlin MD Active LORTAB 5-500 MG ORAL TABLET 1/2 to 1 tablet by mouth e very 4 hours as needed for pain HYDROCODONE-ACETAMINOPHEN 93130877718 No Longer Active Checo Conklin MD Active FOCALIN XR 15 MG ORAL CAPSULE EXTENDED RELEASE 24 HOUR 1 po q a. m. DEXMETHYLPHENIDATE HCL 32880086143 No Longer Active Checo Conklin MD Active ZOFRAN ODT 4 MG ORAL TABLET DISINTEGRATING 1 po q6hr PRN Nausea ONDANSETRON 27070364877 No Longer Active Checo Conklin MD Active PERCOCET 5-325 MG ORAL TABLET 1 tablet by mouth every 6 hour s as needed OXYCODONE-ACETAMINOPHEN 16520476003 No Longer Active Checo Conklin MD Active PYRIDIUM 200 MG ORAL TABLET take 1 tab po TID prn urinary pain. PHENAZOPYRIDINE HCL 92673481673 No Longer Active Checo Joshua Active FLUCONAZOLE 150 MG ORAL TABLET take 1 tab po qday once FLUCONAZOLE 82881005457 No Longer Active Dangelo Rangel MD Acti ve CIPRO 500 MG ORAL TABLET 1 tablet by mouth twice daily CIPROFLOXACIN HCL 16245918321 No Longer Active Dangelo Rangel MD Active PYRIDIUM 200 MG ORAL TABLET take 1 tab po TID prn urinary pain. PYRIDIUM 200 MG ORAL TABLET 1993050 PHENAZOPYRIDINE HCL Inactive PERCOCET 5-325 MG ORAL TABLET 1 tablet by mouth every 6 hour s as needed PERCOCET 5-325 MG ORAL TABLET 4459188 OXYCODONE-ACETAMINOPHEN Inactive ZOFRAN ODT 4 MG ORAL TABLET DISINTEGRATING 1 po q6hr PRN Nausea ZOFRAN ODT 4 MG ORAL TABLET DISINTEGRATING 285707 ONDAN SETRON Inactive FOCALIN XR 15 MG ORAL CAPSULE EXTENDED RELEASE 24 HOUR 1 po q a. m. FOCALIN XR 15 MG ORAL CAPSULE EXTENDED RELEASE 24 HOUR DEXMETHYLPHENIDATE HCL Inactive LORTAB 5-500 MG ORAL TABLET 1/2 to 1 tablet by mouth e very 4 hours as needed for pain LORTAB 5-500 MG ORAL TABLET 084913 HYDROCODONE-ACETAMINOPHEN Inactive PERCOCET 10-325 MG ORAL TABLET 1 tablet every 6 hours as needed for pain PERCOCET 10-325 MG ORAL TABLET 4384765 OXYCODONE-ACETAMI NOPHEN Inactive FOCALIN XR 10 MG ORAL CAPSULE EXTENDED RELEASE 24 HOUR 1 po q a. m. FOCALIN XR 10 MG ORAL CAPSULE EXTENDED RELEASE 24 HOUR DEXMETHYLPHENIDATE HCL Inactive CEFDINIR 300 MG ORAL CAPSULE 1 po bid CEFDINI R 300 MG ORAL CAPSULE 890185 CEFDINIR Inactive ANTIPYRINE-BENZOCAINE 5.4-1.4 % OTIC SOLUTION 1-2 drops in affec yohannes ear ANTIPYRINE-BENZOCAINE 5.4-1.4 % OTIC SOLUTION 897258 BENZOCAINE-ANTIPYRINE Inactive FLONASE 50 MCG/ACT NASAL SUSPENSION 1 spray each nostril am and hs FLONASE 50 MCG/ACT NASAL SUSPENSION 4412636 FLUTICASONE PROPIONATE I nactive PHENERGAN CREAM* 25mg applied to wrist q6hr PRN Nausea PHENERGAN CREAM* Inactive FIORICET 325-50-40 MG TAB 1 tablet by mouth four times daily as needed FIORICET 325-50-40 MG TAB ACETAMINOPHEN-C AFF-BUTALBITAL Inactive TRAZODONE HCL 100 MG ORAL TABLET 0.5 to 1 po qHS PRN Insomnia 20 30/07/08 TRAZODONE HCL 100 MG ORAL TABLET 649871 TRAZODONE HCL Inactive CONCERTA 18 MG ORAL [...] cough HYDROCODONE-ACETAMINOPHEN 5-325 MG ORAL TABLET 8 51585 HYDROCODONE-ACETAMINOPHEN Inactive PHENAZOPYRIDINE HCL 200 MG ORAL TABLET take 1 tab po TID for bladder pain PHENAZOPYRIDINE HCL 200 MG ORAL TABLET 8539672 PHENAZOPYRIDINE HCL Inactive HYDROCODONE-ACETAMINOPHEN 5-325 MG ORAL TABLET 1 po q 6hr PRN Pa in HYDROCODONE-ACETAMINOPHEN 5-325 MG ORAL TABLET 012465 HYDROCODONE-ACETAMINOPHEN Inactive CELEXA 20 MG ORAL TABLET 1 tablet by mouth daily 09/26 CELEXA 20 MG ORAL TABLET 885318 CITALOPRAM HYDROBROMIDE Inactive REGLAN 10 MG ORAL TABLET 1 po TID PRN Nausea 3 REGLAN 10 MG ORAL TABLET 196557 METOCLOPRAMIDE HCL Inactive LAMISIL 250 MG ORAL TABLET 1 po qd L AMISIL 250 MG ORAL TABLET 900242 TERBINAFINE HCL Inactive DICLOFENAC SODIUM 75 MG ORAL TABLET DELAYED RELEASE 1 tablet by mouth twice daily PRN Knee pain DICLOFENAC SODIUM 75 MG ORAL TABLET DELAYED RELEASE 181885 DICLOFENAC SODIUM Inactive METOCLOPRAMIDE HCL 10 MG ORAL TABLET take one PO tid PRN nausea METOCLOPRAMIDE HCL 10 MG ORAL TABLET 591032 METOCLOPRAM ZACH HCL Inactive TERBINAFINE HCL 250 MG ORAL TABLET take one table PO one time da moises TERBINAFINE HCL 250 MG ORAL TABLET 376990 TERBINAFINE H CL Inactive BUPROPION HCL ER [...] SICKNESS 25 M G ORAL TABLET CHEWABLE 269405 MECLIZINE HCL Inactive SUMATRIPTAN SUCCINATE 100 MG ORAL TABLET Take one PRN for migran e SUMATRIPTAN SUCCINATE 100 MG ORAL TABLET 114670 SUMATRIPTAN SUCCINATE Inactive COMPRO 25 MG RECTAL SUPPOSITORY insert or apply one garza ppository rectally as directed every 12 hours as needed for nausea COMPRO 25 MG RECTAL SUPPOSITORY 600462 PROCHLORPERAZINE Inactive ONDANSETRON 8 MG ORAL TABLET DISINTEGRATING place one tablet on tongue and allow to dissolve every 6 hours as needed for vomitting ONDANSETRON 8 MG ORAL TABLET DISINTEGRATING 838355 ONDANSETRON Inactive HYDROCODONE-ACETAMINOPHEN 5-325 MG ORAL TABLET 0.5 to 1 tab by mouth every 6 hours as needed HYDROCODONE-ACETAMIN OPHEN 5-325 MG ORAL TABLET 069509 HYDROCODONE-ACETAMINOPHEN Inactive BACTRIM DS 800-160 MG ORAL TABLET 1 tab by mouth twice daily 201 11/23/03 BACTRIM DS 800-160 MG ORAL TABLET 356392 TRIMETHOPRIM-SULFAMETHOXAZOLE Inactive DIFLUCAN 150 MG ORAL TABLET 1 tablet by mouth if neede d, hold until symptoms start DIFLUCAN 150 MG ORAL TABLET 703507 FLUCONAZ OLE Inactive IBUPROFEN 800 MG ORAL TABLET 1 tab every 8 hours with food 03/20 IBUPROFEN 800 MG ORAL TABLET 027085 IBUPROFEN Krupa ctive HYDROCODONE-ACETAMINOPHEN 5-325 MG ORAL TABLET 1 tab b y mouth every 6 hours as needed HYDROCODONE-ACETAMINOPHEN 5-325 MG ORAL TABLET 840958 HYDROCODONE-ACETAMINOPHEN Inactive BACTROBAN 2 % EXTERNAL CREAM Apply to affected area BID for up to 10 days BACTROBAN 2 % EXTERNAL CREAM 563969 MUPIROCIN CA LCIUM Inactive MAGNESIUM CITRATE 1.745 GM/30ML ORAL SOLUTION 150ml po BID P RN Constipation MAGNESIUM CITRATE 1.745 GM/30ML ORAL SOLUTION 10 08524 MAGNESIUM CITRATE Inactive DIFLUCAN 150 MG ORAL TABLET 1 tablet by mouth qod 2015 DIFLUCAN 150 MG ORAL TABLET 442928 FLUCONAZOLE Inactive BACTRIM DS 800-160 MG ORAL TABLET 1 tab by mouth twice daily 201 12/19/26 BACTRIM DS 800-160 MG ORAL TABLET 152509 TRIMETHOPRIM-SULFAMETHOXAZOLE Inactive CLARITIN 10 MG ORAL TABLET 1 tablet by mouth daily as needed for allergies CLARITIN 10 MG ORAL TABLET 423803 LORATADINE I nactive FLUTICASONE PROPIONATE 50 MCG/ACT NASAL SUSPENSION 2 s prays/nostril qd PRN Congestion/Allergies FLUTICASONE PROPION ATE 50 MCG/ACT NASAL SUSPENSION 4328849 FLUTICASONE PROPIONATE Inactive CIPRO 500 MG ORAL TABLET 1 tablet by mouth twice daily CIPRO 500 MG ORAL TABLET 596412 CIPROFLOXACIN HCL Inactive FLUCONAZOLE 150 MG ORAL TABLET take 1 tab po qday once FLUCONAZOLE 150 MG ORAL TABLET 617669 FLUCONAZOLE Inactive ZITHROMAX Z-KARTHIK 250 MG ORAL TABLET 2 today, then 1 daily for 4 d ays ZITHROMAX Z-KARTHIK 250 MG ORAL TABLET 344413 AZITHROMYCIN Inactive PREDNISONE 20 MG ORAL TABLET 2 tabs daily for 3 days, 1 tab daily for 3 days, 1/2 tab daily for 2 days PREDNISONE 20 MG ORAL T ABLET 688684 PREDNISONE Inactive AZITHROMYCIN 250 MG ORAL TABLET 2 po qd x 1 day, then 1 po q d x 4 days AZITHROMYCIN 250 MG ORAL TABLET 930282 AZITHROMY SPARKLE Inactive PREDNISONE 20 MG ORAL TABLET 2 tabs daily for 3 days, 1 tab daily for 3 days, 1/2 tab daily for 2 days PREDNISONE 20 MG ORAL TABLET 579999 PREDNISONE Inactive CEFDINIR 300 MG ORAL CAPSULE by mouth twice a day 2013 CEFDINIR 300 MG ORAL CAPSULE 667079 CEFDINIR Inactive TRIAMCINOLONE ACETONIDE 0.1 % EXTERNAL OINTMENT Apply to affected areas TID for up to 2 weeks TRIAMCINOLONE ACETON ZACH 0.1 % EXTERNAL OINTMENT 6677460 TRIAMCINOLONE ACETONIDE Inactive PREDNISONE 20 MG ORAL TABLET 2 tabs daily for 3 days, 1 tab daily for 3 days, 1/2 tab daily for 2 days PREDNISONE 20 MG ORAL T ABLET 418100 PREDNISONE Inactive BACTRIM DS 800-160 MG ORAL TABLET 1 po BID x 7 days 29/04/10 BACTRIM DS 800-160 MG ORAL TABLET 438747 SULFAMETHOXAZOLE-TRIMETHOP RIM Inactive CIPRO 500 MG ORAL TABLET 1 tablet by mouth twice daily CIPRO 500 MG ORAL TABLET 347156 CIPROFLOXACIN HCL Inactive AZITHROMYCIN 250 MG ORAL TABLET 2 po qd x 1 day, then 1 po q d x 4 days AZITHROMYCIN 250 MG ORAL TABLET 054242 AZITHROMY SPARKLE Inactive FLAGYL 500 MG ORAL TABLET 1 tablet by mouth bid 04/13 FLAGYL 500 MG ORAL TABLET 008305 METRONIDAZOLE Inactive AZITHROMYCIN 250 MG ORAL TABLET 2 po qd x 1 day, then 1 po q d x 4 days AZITHROMYCIN 250 MG ORAL TABLET 234011 AZITHROMY SPARKLE Inactive AMOXICILLIN 500 MG ORAL CAPSULE 2 po BID x 10 days 201 01/15/27 AMOXICILLIN 500 MG ORAL CAPSULE 255447 AMOXICILLIN Inactive Immunizations Vaccine Administration Date Value [...] PANEL - Chemistry cholesterol, serum 192 mg/dL 073-957 2317/02/20 HDL cholesterol, serum 31 mg/dL > OR [...] 11 .0-15.0 platelet count 218 THOUSAND/UL 10*3/mm3 535-760 5871/02/20 mean platelet volume 9.7 fL 7.5-12.5 Encounters Code Encounter Date Provider Facility CPT-53662 Level 3 Est. Patient 11:24:55 [employer] Efren almendarez APRN [facility] CPT-30441 Level 3 Est. Patient 13:05:44 CDT Paul Hamlin MD [facility] CPT-04441 Level 3 Est. Patient 11:29:55 CDT Checo Conklin MD [facility] CPT-38062 Level 4 Est. Patient 11:08:12 [employer] Checo Conklin MD [facility] CPT-26420 Level 4 Est. Patient 16:06:48 DA[employer] MANA[employer] Checo Conklin MD [facility] CPT-75322 Level 3 Est. Patient 09:11:49 CDT Efren Nicolas almendarez [facility] [place] CPT-31282 Level 2 Est. Patient 19:53:27 CDT Tanner hill MD [facility] CPT-50096 Level 3 Est. Patient 09:15:34 CDT Americomarine Nicolas almendarez [facility] [place] CPT-62725 Level 3 Est. Patient 11:28:51 DA[employer] Efren Nicolas almendarez [facility] [place] CPT-84643 Level 4 Est. Patient 13:55:46 DAIRY [employer] MANA[employer] Checo Conklin MD [facility] CPT-36305 Level 4 Est. Patient 17:10:53 CDT Checo Conklin MD [facility] CPT-09966 Level 3 Est. Patient 15:56:22 CDT Checo Conklin MD [facility] CPT-34900 Level 3 Est. Patient 15:29:07 CDT Checo Conklin MD [facility] CPT-37148 Level 3 Est. Patient 14:38:41 CDT Checo Conklin MD [facility] CPT-36342 Level 3 Est. Patient 15:22:03 DA[employer] Thomas reynolds DO [facility] CPT-00440 Level 3 Est. Patient 13:34:17 DA[employer]NA[employer] Checo Conklin MD [facility] CPT-73556 Level 3 Est. Patient 12:29:32 CDT Dangelo arroyo MD [facility] CPT-65993 Level 3 Est. Patient 16:53:02 CDT Checo Conklin MD [facility] CPT-30912 Level 3 Est. Patient 16:37:13 CDT Checo Conklin MD [facility] CPT-24661 Level 3 Est. Patient 16:16:59 CDT Paul Hamlin MD [facility] CPT-62994 Level 3 Est. Patient 14:20:13 CDT Dangelo arroyo MD [facility] CPT-85581 Level 4 Est. Patient 11:29:33 CDT Checo Conklin MD [facility] CPT-04012 Level 3 Est. Patient 17:08:31 CDT Checo Conklin MD [facility] CPT-15087 Level 3 Est. Patient 16:50:42 DAIRY [employer]NA[employer] Checo Conklin MD [facility] CPT-87653 Level 4 Est. Patient 09:26:08 DAIRY [employer] MANA[employer] Checo Conklin MD [facility] CPT-32159 Level 3 Est. Patient 11:37:10 CDT Checo Conklin MD [facility] CPT-70393 Level 4 Est. Patient 14:07:38 CDT Checo Conklin MD [facility] CPT-88003 Level 3 Est. Patient 09:54:41 CDT Checo Conklin MD [facility] CPT-21481 Level 3 Est. Patient 11:10:54 CDT Paul Hamlin MD [facility] CPT-58635 Level 3 Est. Patient 14:16:56 DA[employer]NAGER Checo Conklin MD [facility] CPT-88122 Level 3 Est. Patient 11:04:11 DAIRY [employer] MANAGER Checo Conklin MD [facility] CPT-29758 Level 3 Est. Patient 17:09:26 CDT Dangelo arroyo MD [facility] CPT-54316 Level 3 Est. Patient 16:54:37 CDT Checo Conklin MD [facility] Procedures Code Procedure Name Date Entry Date Standard Desc ription CPT-31160 Abd compl w upright - XRAY USE ONLY 1 1:36:54 [employer] CPT-49725 UA w micro - LAB USE ONLY 17:06:46 CDT 2015 CPT-84971 [facility]CG Qual - LAB USE ONLY 17:06:46 CDT 05/06 CPT-38239 CMP - LAB USE ONLY 17:06:46 CDT CPT-59783 CBC with Diff - LAB USE ONLY 17:06:45 CDT 2 CPT-99188 Venipuncture Draw Fee 17:06:45 CDT CPT-LR Lesion Removal 19:53:27 CDT CPT-OV Office Visit 11:31:28 CDT CPT-84517 Tubersol 09:39:29 CDT CPT-J2550 Phenergan 25 mg (Promethazine) 13:59:02 [employer] CPT-J1885 Toradol 60 mg (Ketorolac) 13:59:02 DAIRY [employer] MANAGER 2012
--- OUTSIDE RECORDS SUMMARY | 2019-09-29 01:42 | XMS REPORT | Clinical Summary ---
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 Abdominal pain, generalized Nausea 787.02 Active Efren [...] Conklin MD Hypoglycemia, unspecified ICD-251.2 Inactive Checo Coknlin MD Insomnia ICD-780.52 Inactive Checo Joshua Breast [...] outh daily, for acid reflux PANTOPRAZOLE SODIUM 39706908766 No Longer Activ e Corry Méndez SUPERVISING CHEF Active FLAGYL 500 MG ORAL TABLET 1 tablet by mouth bid 08/29 METRONIDAZOLE 95651915623 No Longer Active Corry Honey SUPERVISING CHEF Active CLARITHROMYCIN 500 MG ORAL TABLET 1 tab po BID x 14 days CLARITHROMYCIN 00880436696 No Longer Active Corrymary Méndez SUPERVISING CHEF Active AMOXICILLIN 500 MG ORAL CAPSULE 2 po BID x 14 days for H. Pylori AMOXICILLIN 94628263877 No Longer Active Corry Méndez SUPERVISING CHEF Active PAROXETINE HCL 20 MG ORAL TABLET 1.5 po qd PAR OXETINE HCL 08921736504 Active Checo Conklin MD Active FLUTICASONE PROPIONATE 50 MCG/ACT NASAL SUSPENSION 2 s prays/nostril qd PRN Congestion/Allergies FLUTICASONE PROPIONATE 0403224195 9 No Longer Active Checo Conklin MD Active AMOXICILLIN 500 MG ORAL CAPSULE 2 po BID x 10 days 201 01/15/27 AMOXICILLIN 54710538804 No Longer Active Checo Conklin MD Activ e MIRALAX ORAL POWDER 8.5 to 17g po qd PRN Constipation POLYETHYLENE GLYCOL 3350 18046455192 Active Checo Conklin MD Active CLARITIN 10 MG ORAL TABLET 1 tablet by mouth daily as needed for allergies LORATADINE 97064242908 No Longer Active Checo Ortiz MD Active BACTRIM DS 800-160 MG ORAL TABLET 1 tab by mouth twice daily 201 12/19/26 TRIMETHOPRIM-SULFAMETHOXAZOLE 67153734514 No Longer Active Ragini Carrillo MD Active DIFLUCAN 150 MG ORAL TABLET 1 tablet by mouth qod 2015 FLUCONAZOLE 70681867726 No Longer Active 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 DEXMETHYLPHENIDATE HCL 14446019211 Active Checo Conklin MD Active MAGNESIUM CITRATE 1.745 GM/30ML ORAL SOLUTION 150ml po BID P RN Constipation MAGNESIUM CITRATE 30975259778 No Longer Active Checo Conklin MD Active BACTROBAN 2 % EXTERNAL CREAM Apply to affected area BID for up to 10 days MUPIROCIN CALCIUM 92502958221 No Longer Active Checo Conklin MD Active HYDROCODONE-ACETAMINOPHEN 5-325 MG ORAL TABLET 1 tab b y mouth every 6 hours as needed HYDROCODONE-ACETAMINOPHEN 32712846843 No Longer Active Checo Conklin MD Active IBUPROFEN 800 MG ORAL TABLET 1 tab every 8 hours with food 03/20 IBUPROFEN 31380968451 No Longer Active Checo Conklin MD Active DIFLUCAN 150 MG ORAL TABLET 1 tablet by mouth if neede d, hold until symptoms start FLUCONAZOLE 55410754441 No Longer Active Checo Conklin MD Active BACTRIM DS 800-160 MG ORAL TABLET 1 tab by mouth twice daily 201 11/23/03 TRIMETHOPRIM-SULFAMETHOXAZOLE 95019504100 No Longer Active K bernice Méndez LPN Active HYDROCODONE-ACETAMINOPHEN 5-325 MG ORAL TABLET 0.5 to 1 tab by mouth every 6 hours as needed HYDROCODONE-ACETAMINOPHEN 64450188866 No Longer Active Checo Conklin MD Active ONDANSETRON 8 MG ORAL TABLET DISINTEGRATING place one tablet on tongue and allow to dissolve every 6 hours as needed for vomitting ONDANSETRON 08049923153 No Longer Active Checo Conklin MD Activ e COMPRO 25 MG RECTAL SUPPOSITORY insert or apply one garza ppository rectally as directed every 12 hours as needed for nausea PROCHLORPERAZINE 13557191263 No Longer Active Checo Conklin MD A ctive SUMATRIPTAN SUCCINATE 100 MG ORAL TABLET Take one PRN for migran e SUMATRIPTAN SUCCINATE 36113392288 No Longer Active Checo Conklin MD Active TRAVEL SICKNESS 25 MG ORAL TABLET CHEWABLE chew and sw allow one tablet every 6 hours as needed MECLIZINE HCL 57347901216 No Longer A ctive Checo Conklin MD Active BUPROPION HCL ER (SR) 100 MG ORAL TABLET EXTENDED RELE ASE 12 HOUR take one tablet by mouth one time daily for one week then take 1 two times daily BUPROPION HCL 43780016552 No Longer Active Checo gallagher MD Active TERBINAFINE HCL 250 MG ORAL TABLET take one table PO one time da moises TERBINAFINE HCL 91417805680 No Longer Active Checo Conklin MD Active METOCLOPRAMIDE HCL 10 MG ORAL TABLET take one PO tid PRN nausea METOCLOPRAMIDE HCL 23247449614 No Longer Active Checo Conklin MD Active DICLOFENAC SODIUM 75 MG ORAL TABLET DELAYED RELEASE 1 tablet by mouth twice daily PRN Knee pain DICLOFENAC SODIUM 06266572009 No Longer Active Checo Conklin MD Active LAMISIL 250 MG ORAL TABLET 1 po qd TERBINAFI NE HCL 91606201057 No Longer Active Checo Conklin MD Active REGLAN 10 MG ORAL TABLET 1 po TID PRN Nausea 3 METOCLOPRAMIDE HCL 37382285265 No Longer Active Checo Conklin MD Active CELEXA 20 MG ORAL TABLET 1 tablet by mouth daily 09/26 CITALOPRAM HYDROBROMIDE 91702349728 No Longer Active Checo Conklin MD Active AZITHROMYCIN 250 MG ORAL TABLET 2 po qd x 1 day, then 1 po q d x 4 days AZITHROMYCIN 76732672003 No Longer Active Checo Ortiz MD Active HYDROCODONE-ACETAMINOPHEN 5-325 MG ORAL TABLET 1 po q 6hr PRN Pa in HYDROCODONE-ACETAMINOPHEN 84606960142 No Longer Active Lenora Conklin MD Active PHENAZOPYRIDINE HCL 200 MG ORAL TABLET take 1 tab po TID for bladder pain PHENAZOPYRIDINE HCL 13659111979 No Longer Active Joe Conklin MD Active CIPRO 500 MG ORAL TABLET 1 tablet by mouth twice daily CIPROFLOXACIN HCL 54421749693 No Longer Active Dangelo Rangel MD Active HYDROCODONE-ACETAMINOPHEN 5-325 MG ORAL TABLET 1/2 to 1 po q 4 hours prn cough HYDROCODONE-ACETAMINOPHEN 99243941377 No Longer Activ candy Rangel MD Active BACTRIM DS 800-160 MG ORAL TABLET 1 po BID x 7 days 29/04/10 SULFAMETHOXAZOLE-TRIMETHOPRIM 58365935336 No Longer Active Checo Conklin MD Active PREDNISONE 20 MG ORAL TABLET 2 tabs daily for 3 days, 1 tab daily for 3 days, 1/2 tab daily for 2 days PREDNISONE 40256568075 No Longer Active Checo Conklin MD Active TRIAMCINOLONE ACETONIDE 0.1 % EXTERNAL OINTMENT Apply to affected areas TID for up to 2 weeks TRIAMCINOLONE ACETONIDE 68924044214 No Longer Active Checo Conklin MD Active CEFDINIR 300 MG ORAL CAPSULE by mouth twice a day 2013 CEFDINIR 37595573498 No Longer Active Dangelo Rangel MD Acti ve BUPROPION HCL ER (SMOKING DET) 150 MG ORAL TABLET EXTE NDED RELEASE 12 HOUR 1 a day for 1 week then 1 twice a day BUPROPION HCL (SMOKING DETER) 00301308804 No Longer Active Checo Conklin MD Active SIMVASTATIN 20 MG ORAL TABLET 1 po qd SIMVASTAT IN 81119457338 Active Checo Conklin MD Active CHANTIX STARTING MONTH KARTHIK 0.5 MG X 11 & 1 MG X 42 ORA L TABLET 0.5mg daily for 3 days, then 0.5mg BID for 4 days, then 1mg BID VARENICLINE TARTRATE 44767275140 No Longer Active Checo Conklin MD Activ e XANAX 0.5 MG ORAL TABLET 1 po BID PRN anxiety A LPRAZOLAM 51617153527 Active Checo Conklin MD Active CONCERTA 18 MG ORAL TABLET EXTENDED RELEASE 1 po q a.m. METHYLPHENIDATE HCL 72768120195 No Longer Active Checo Conklin MD Active AMBIEN 5 MG ORAL TABLET 1 po qHS PRN Insomnia Z OLPIDEM TARTRATE 01061609784 Active Checo Conklin MD Active TRAZODONE HCL 100 MG ORAL TABLET 0.5 to 1 po qHS PRN Insomnia 20 30/07/08 TRAZODONE HCL 19743786550 No Longer Active Checo Conklin MD Active FIORICET 325-50-40 MG TAB 1 tablet by mouth four times daily as needed [id number] 99047179295 No Longer Active Checo Conklin MD Active PHENERGAN CREAM* 25mg applied to wrist q6hr PRN Nausea PHENERGAN CREAM* No Longer Active Checo Conklin MD A ctive FLONASE 50 MCG/ACT NASAL SUSPENSION 1 spray each nostril am and hs FLUTICASONE PROPIONATE 20862836787 No Longer Active Checo Conklin MD Active ANTIPYRINE-BENZOCAINE 5.4-1.4 % OTIC SOLUTION 1-2 drops in affec yohannes ear BENZOCAINE-ANTIPYRINE 84157788444 No Longer Active Checo Conklin MD Active CEFDINIR 300 MG ORAL CAPSULE 1 po bid CEFDINIR 41796998682 No Longer Active Checo Conklin MD Active PREDNISONE 20 MG ORAL TABLET 2 tabs daily for 3 days, 1 tab daily for 3 days, 1/2 tab daily for 2 days PREDNISONE 73238174467 No Longer Active Checo Conklin MD Active AZITHROMYCIN 250 MG ORAL TABLET 2 po qd x 1 day, then 1 po q d x 4 days AZITHROMYCIN 24040318656 No Longer Active Checo Ortiz MD Active PREDNISONE 20 MG ORAL TABLET 2 tabs daily for 3 days, 1 tab daily for 3 days, 1/2 tab daily for 2 days PREDNISONE 68515118234 No Longer Active Checo Conklin MD Active ZITHROMAX Z-KARTHIK 250 MG ORAL TABLET 2 today, then 1 daily for 4 d ays AZITHROMYCIN 06750813226 No Longer Active Paul Hamlin MD Active FOCALIN XR 10 MG ORAL CAPSULE EXTENDED RELEASE 24 HOUR 1 po q a. m. DEXMETHYLPHENIDATE HCL 08641526055 No Longer Active Paul Hamlin MD Active PERCOCET 10-325 MG ORAL TABLET 1 tablet every 6 hours as needed for pain OXYCODONE-ACETAMINOPHEN 12197290648 No Longer Active Paul Hamlin MD Active LORTAB 5-500 MG ORAL TABLET 1/2 to 1 tablet by mouth e very 4 hours as needed for pain HYDROCODONE-ACETAMINOPHEN 71997330247 No Longer Active Checo Conklin MD Active FOCALIN XR 15 MG ORAL CAPSULE EXTENDED RELEASE 24 HOUR 1 po q a. m. DEXMETHYLPHENIDATE HCL 12328664003 No Longer Active Checo Conklin MD Active ZOFRAN ODT 4 MG ORAL TABLET DISINTEGRATING 1 po q6hr PRN Nausea ONDANSETRON 77768587227 No Longer Active Checo Conklni MD Active PERCOCET 5-325 MG ORAL TABLET 1 tablet by mouth every 6 hour s as needed OXYCODONE-ACETAMINOPHEN 47190528542 No Longer Active Checo Conklin MD Active PYRIDIUM 200 MG ORAL TABLET take 1 tab po TID prn urinary pain. PHENAZOPYRIDINE HCL 68677822736 No Longer Active Checo Joshua Active FLUCONAZOLE 150 MG ORAL TABLET take 1 tab po qday once FLUCONAZOLE 80617262644 No Longer Active Dangelo Rangel MD Acti ve CIPRO 500 MG ORAL TABLET 1 tablet by mouth twice daily CIPROFLOXACIN HCL 30191748148 No Longer Active Dangelo Rangel MD Active PYRIDIUM 200 MG ORAL TABLET take 1 tab po TID prn urinary pain. PYRIDIUM 200 MG ORAL TABLET 9888266 PHENAZOPYRIDINE HCL Inactive PERCOCET 5-325 MG ORAL TABLET 1 tablet by mouth every 6 hour s as needed PERCOCET 5-325 MG ORAL TABLET 7000734 OXYCODONE-ACETAMINOPHEN Inactive ZOFRAN ODT 4 MG ORAL TABLET DISINTEGRATING 1 po q6hr PRN Nausea ZOFRAN ODT 4 MG ORAL TABLET DISINTEGRATING 419117 ONDAN SETRON Inactive FOCALIN XR 15 MG ORAL CAPSULE EXTENDED RELEASE 24 HOUR 1 po q a. m. FOCALIN XR 15 MG ORAL CAPSULE EXTENDED RELEASE 24 HOUR DEXMETHYLPHENIDATE HCL Inactive LORTAB 5-500 MG ORAL TABLET 1/2 to 1 tablet by mouth e very 4 hours as needed for pain LORTAB 5-500 MG ORAL TABLET 472211 HYDROCODONE-ACETAMINOPHEN Inactive PERCOCET 10-325 MG ORAL TABLET 1 tablet every 6 hours as needed for pain PERCOCET 10-325 MG ORAL TABLET 5482504 OXYCODONE-ACETAMI NOPHEN Inactive FOCALIN XR 10 MG ORAL CAPSULE EXTENDED RELEASE 24 HOUR 1 po q a. m. FOCALIN XR 10 MG ORAL CAPSULE EXTENDED RELEASE 24 HOUR DEXMETHYLPHENIDATE HCL Inactive CEFDINIR 300 MG ORAL CAPSULE 1 po bid CEFDINI R 300 MG ORAL CAPSULE 537870 CEFDINIR Inactive ANTIPYRINE-BENZOCAINE 5.4-1.4 % OTIC SOLUTION 1-2 drops in affec yohannes ear ANTIPYRINE-BENZOCAINE 5.4-1.4 % OTIC SOLUTION 877446 BENZOCAINE-ANTIPYRINE Inactive FLONASE 50 MCG/ACT NASAL SUSPENSION 1 spray each nostril am and hs FLONASE 50 MCG/ACT NASAL SUSPENSION 8895644 FLUTICASONE PROPIONATE I nactive PHENERGAN CREAM* 25mg applied to wrist q6hr PRN Nausea PHENERGAN CREAM* Inactive FIORICET 325-50-40 MG TAB 1 tablet by mouth four times daily as needed FIORICET 325-50-40 MG TAB ACETAMINOPHEN-C AFF-BUTALBITAL Inactive TRAZODONE HCL 100 MG ORAL TABLET 0.5 to 1 po qHS PRN Insomnia 20 30/07/08 TRAZODONE HCL 100 MG ORAL TABLET 702796 TRAZODONE HCL Inactive CONCERTA 18 MG ORAL [...] cough HYDROCODONE-ACETAMINOPHEN 5-325 MG ORAL TABLET 8 22356 HYDROCODONE-ACETAMINOPHEN Inactive PHENAZOPYRIDINE HCL 200 MG ORAL TABLET take 1 tab po TID for bladder pain PHENAZOPYRIDINE HCL 200 MG ORAL TABLET 8684977 PHENAZOPYRIDINE HCL Inactive HYDROCODONE-ACETAMINOPHEN 5-325 MG ORAL TABLET 1 po q 6hr PRN Pa in HYDROCODONE-ACETAMINOPHEN 5-325 MG ORAL TABLET 482212 HYDROCODONE-ACETAMINOPHEN Inactive CELEXA 20 MG ORAL TABLET 1 tablet by mouth daily 09/26 CELEXA 20 MG ORAL TABLET 902390 CITALOPRAM HYDROBROMIDE Inactive REGLAN 10 MG ORAL TABLET 1 po TID PRN Nausea 3 REGLAN 10 MG ORAL TABLET 429525 METOCLOPRAMIDE HCL Inactive LAMISIL 250 MG ORAL TABLET 1 po qd L AMISIL 250 MG ORAL TABLET 345163 TERBINAFINE HCL Inactive DICLOFENAC SODIUM 75 MG ORAL TABLET DELAYED RELEASE 1 tablet by mouth twice daily PRN Knee pain DICLOFENAC SODIUM 75 MG ORAL TABLET DELAYED RELEASE 911332 DICLOFENAC SODIUM Inactive METOCLOPRAMIDE HCL 10 MG ORAL TABLET take one PO tid PRN nausea METOCLOPRAMIDE HCL 10 MG ORAL TABLET 060777 METOCLOPRAM ZACH HCL Inactive TERBINAFINE HCL 250 MG ORAL TABLET take one table PO one time da moises TERBINAFINE HCL 250 MG ORAL TABLET 289360 TERBINAFINE H CL Inactive BUPROPION HCL ER [...] SICKNESS 25 M G ORAL TABLET CHEWABLE 949652 MECLIZINE HCL Inactive SUMATRIPTAN SUCCINATE 100 MG ORAL TABLET Take one PRN for migran e SUMATRIPTAN SUCCINATE 100 MG ORAL TABLET 781468 SUMATRIPTAN SUCCINATE Inactive COMPRO 25 MG RECTAL SUPPOSITORY insert or apply one garza ppository rectally as directed every 12 hours as needed for nausea COMPRO 25 MG RECTAL SUPPOSITORY 516604 PROCHLORPERAZINE Inactive ONDANSETRON 8 MG ORAL TABLET DISINTEGRATING place one tablet on tongue and allow to dissolve every 6 hours as needed for vomitting ONDANSETRON 8 MG ORAL TABLET DISINTEGRATING 143789 ONDANSETRON Inactive HYDROCODONE-ACETAMINOPHEN 5-325 MG ORAL TABLET 0.5 to 1 tab by mouth every 6 hours as needed HYDROCODONE-ACETAMIN OPHEN 5-325 MG ORAL TABLET 572987 HYDROCODONE-ACETAMINOPHEN Inactive BACTRIM DS 800-160 MG ORAL TABLET 1 tab by mouth twice daily 201 11/23/03 BACTRIM DS 800-160 MG ORAL TABLET 765117 TRIMETHOPRIM-SULFAMETHOXAZOLE Inactive DIFLUCAN 150 MG ORAL TABLET 1 tablet by mouth if neede d, hold until symptoms start DIFLUCAN 150 MG ORAL TABLET 712256 FLUCONAZ OLE Inactive IBUPROFEN 800 MG ORAL TABLET 1 tab every 8 hours with food 03/20 IBUPROFEN 800 MG ORAL TABLET 536051 IBUPROFEN Krupa ctive HYDROCODONE-ACETAMINOPHEN 5-325 MG ORAL TABLET 1 tab b y mouth every 6 hours as needed HYDROCODONE-ACETAMINOPHEN 5-325 MG ORAL TABLET 416570 HYDROCODONE-ACETAMINOPHEN Inactive BACTROBAN 2 % EXTERNAL CREAM Apply to affected area BID for up to 10 days BACTROBAN 2 % EXTERNAL CREAM 170062 MUPIROCIN CA LCIUM Inactive MAGNESIUM CITRATE 1.745 GM/30ML ORAL SOLUTION 150ml po BID P RN Constipation MAGNESIUM CITRATE 1.745 GM/30ML ORAL SOLUTION 10 90210 MAGNESIUM CITRATE Inactive DIFLUCAN 150 MG ORAL TABLET 1 tablet by mouth qod 2015 DIFLUCAN 150 MG ORAL TABLET 684827 FLUCONAZOLE Inactive BACTRIM DS 800-160 MG ORAL TABLET 1 tab by mouth twice daily 201 12/19/26 BACTRIM DS 800-160 MG ORAL TABLET 952760 TRIMETHOPRIM-SULFAMETHOXAZOLE Inactive CLARITIN 10 MG ORAL TABLET 1 tablet by mouth daily as needed for allergies CLARITIN 10 MG ORAL TABLET 029641 LORATADINE I nactive FLUTICASONE PROPIONATE 50 MCG/ACT NASAL SUSPENSION 2 s prays/nostril qd PRN Congestion/Allergies FLUTICASONE PROPION ATE 50 MCG/ACT NASAL SUSPENSION 9291646 FLUTICASONE PROPIONATE Inactive CIPRO 500 MG ORAL TABLET 1 tablet by mouth twice daily CIPRO 500 MG ORAL TABLET 381167 CIPROFLOXACIN HCL Inactive FLUCONAZOLE 150 MG ORAL TABLET take 1 tab po qday once FLUCONAZOLE 150 MG ORAL TABLET 311652 FLUCONAZOLE Inactive ZITHROMAX Z-KARTHIK 250 MG ORAL TABLET 2 today, then 1 daily for 4 d ays ZITHROMAX Z-KARTHIK 250 MG ORAL TABLET 670544 AZITHROMYCIN Inactive PREDNISONE 20 MG ORAL TABLET 2 tabs daily for 3 days, 1 tab daily for 3 days, 1/2 tab daily for 2 days PREDNISONE 20 MG ORAL T ABLET 267952 PREDNISONE Inactive AZITHROMYCIN 250 MG ORAL TABLET 2 po qd x 1 day, then 1 po q d x 4 days AZITHROMYCIN 250 MG ORAL TABLET 416697 AZITHROMY SPARKLE Inactive PREDNISONE 20 MG ORAL TABLET 2 tabs daily for 3 days, 1 tab daily for 3 days, 1/2 tab daily for 2 days PREDNISONE 20 MG ORAL TABLET 435222 PREDNISONE Inactive CEFDINIR 300 MG ORAL CAPSULE by mouth twice a day 2013 CEFDINIR 300 MG ORAL CAPSULE 859734 CEFDINIR Inactive TRIAMCINOLONE ACETONIDE 0.1 % EXTERNAL OINTMENT Apply to affected areas TID for up to 2 weeks TRIAMCINOLONE ACETON ZACH 0.1 % EXTERNAL OINTMENT 5867003 TRIAMCINOLONE ACETONIDE Inactive PREDNISONE 20 MG ORAL TABLET 2 tabs daily for 3 days, 1 tab daily for 3 days, 1/2 tab daily for 2 days PREDNISONE 20 MG ORAL T ABLET 449750 PREDNISONE Inactive BACTRIM DS 800-160 MG ORAL TABLET 1 po BID x 7 days 29/04/10 BACTRIM DS 800-160 MG ORAL TABLET 975492 SULFAMETHOXAZOLE-TRIMETHOP RIM Inactive CIPRO 500 MG ORAL TABLET 1 tablet by mouth twice daily CIPRO 500 MG ORAL TABLET 347830 CIPROFLOXACIN HCL Inactive AZITHROMYCIN 250 MG ORAL TABLET 2 po qd x 1 day, then 1 po q d x 4 days AZITHROMYCIN 250 MG ORAL TABLET 037930 AZITHROMY SPARKLE Inactive FLAGYL 500 MG ORAL TABLET 1 tablet by mouth bid 04/13 FLAGYL 500 MG ORAL TABLET 063080 METRONIDAZOLE Inactive AZITHROMYCIN 250 MG ORAL TABLET 2 po qd x 1 day, then 1 po q d x 4 days AZITHROMYCIN 250 MG ORAL TABLET 404189 AZITHROMY SPARKLE Inactive AMOXICILLIN 500 MG ORAL CAPSULE 2 po BID x 10 days 01/15/27 AMOXICILLIN 500 MG ORAL CAPSULE 434396 AMOXICILLIN Inactive AMOXICILLIN 500 MG ORAL CAPSULE 2 po BID x 14 days for H. Pylori AMOXICILLIN 500 MG ORAL CAPSULE 705376 AMOXICILLIN Inactive CLARITHROMYCIN 500 MG ORAL TABLET 1 tab po BID x 14 days CLARITHROMYCIN 500 MG ORAL TABLET 729714 CLARITHROMYCIN Inacti ve FLAGYL 500 MG ORAL TABLET 1 tablet by mouth bid 08/29 FLAGYL 500 MG ORAL TABLET 147255 METRONIDAZOLE Inactive PROTONIX 40 MG ORAL TABLET DELAYED RELEASE 1 pill by m outh daily, for acid reflux PROTONIX 40 MG ORAL TABLET DELAYED RELEAS E 654924 PANTOPRAZOLE SODIUM Inactive Immunizations Vaccine Administration Date [...] PANEL - Chemistry cholesterol, serum 192 mg/dL 162-130 5612/02/20 HDL cholesterol, serum 31 mg/dL > OR [...] 11 .0-15.0 platelet count 218 THOUSAND/UL 10*3/mm3 040-401 6743/02/20 mean platelet volume 9.7 fL 7.5-12.5 Lab Report: Comp. Metabolic Panel, Eryth rocyte Sed Rate, UADIP W/MICRO, ... - Chemistry protein, total urine random Negative mg/dL Negative sodium, serum 139 mmol/L 226-350 4930/11/28 carbon dioxide, venous blood 26.0 mmol/L 21.0-32 [...] Negative Encounters Code Encounter Date Provider Facility CPT-69393 Level 3 Est. Patient 11:24:55 [employer] Efren almendarez [facility] CPT-31848 Level 3 Est. Patient 13:05:44 CDT Paul Hamlin MD [facility] CPT-39800 Level 3 Est. Patient 11:29:55 CDT Checo Conklin MD [facility] CPT-06311 Level 4 Est. Patient 11:08:12 [employer] Checo Conklin MD [facility] CPT-02381 Level 4 Est. 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 Patient 09:11:49 CDT Efren almendarez [facility] CPT-87329 Level 2 Est. Patient 19:53:27 CDT Tanner hill MD [facility] CPT-09067 Level 3 Est. Patient 09:15:34 CDT Efren almendarez [facility] CPT-92409 Level 3 Est. Patient 11:28:51 [employer] Efren almendarez [facility] CPT-38053 Level 4 Est. 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 Patient 17:10:53 CDT Checo Conklin MD [facility] CPT-13655 Level 3 Est. Patient 15:56:22 CDT Checo Conklin MD [facility] CPT-09791 Level 3 Est. Patient 15:29:07 CDT Checo Conklin MD [facility] CPT-76586 Level 3 Est. Patient 14:38:41 CDT Checo Conklin MD [facility] CPT-60942 Level 3 Est. Patient 15:22:03 [employer]ER Thomas reynolds DO [facility] CPT-07420 Level 3 Est. Patient 13:34:17 [employer]ONE POL[employer]ER Checo Conklin MD [facility] CPT-83624 Level 3 Est. Patient 12:29:32 CDT Dangelo arroyo MD [facility] CPT-70211 Level 3 Est. Patient 16:53:02 CDT Checo Conklin MD [facility] CPT-90104 Level 3 Est. Patient 16:37:13 CDT Checo Conklin MD [facility] CPT-79425 Level 3 Est. Patient 16:16:59 CDT Paul Hamlin MD [facility] CPT-15891 Level 3 Est. Patient 14:20:13 CDT Dangelo arroyo MD [facility] CPT-19809 Level 4 Est. Patient 11:29:33 CDT Checo Conklin MD [facility] CPT-70763 Level 3 Est. Patient 17:08:31 CDT Checo Conklin MD [facility] CPT-34976 Level 3 Est. Patient 16:50:42 [employer]ONE POL[employer]ER Checo Conklin MD [facility] CPT-85188 Level 4 Est. 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 Patient 11:37:10 CDT Checo Conklin MD [facility] CPT-32755 Level 4 Est. Patient 14:07:38 CDT Checo Conklin MD [facility] CPT-73602 Level 3 Est. Patient 09:54:41 CDT Checo Conklin MD [facility] CPT-80758 Level 3 Est. Patient 11:10:54 CDT Paul Hamlin MD [facility] CPT-00782 Level 3 Est. Patient 14:16:56 [employer] POL[employer]ER Checo Conklin MD [facility] CPT-94634 Level 3 Est. 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 Patient 17:09:26 CDT Dangelo arroyo MD [facility] CPT-67975 Level 3 Est. Patient 16:54:37 CDT Checo Conklin MD [facility] Procedures Code Procedure Name Date Entry Date Standard Desc ription CPT-55481 Abd compl w upright - XRAY USE ONLY 1 1:36:54 [employer] CPT-70766 UA w micro - LAB USE ONLY 17:06:46 CDT 2015 CPT-17919 [facility]CG Qual - LAB USE ONLY 17:06:46 CDT 05/06 CPT-24274 CMP - LAB USE ONLY 17:06:46 CDT CPT-39524 CBC with Diff - LAB USE ONLY 17:06:45 CDT 2 CPT-73109 Venipuncture Draw Fee 17:06:45 CDT CPT-LR Lesion Removal 19:53:27 CDT CPT-OV Office Visit 11:31:28 CDT CPT-85153 Tubersol 09:39:29 CDT CPT-J2550 Phenergan 25 mg (Promethazine) 13:59:02 [employer] POL[employer] CPT-J1885 Toradol 60 mg (Ketorolac) 13:59:02 [employer]ONE POLISHER 2012
--- OUTSIDE RECORDS SUMMARY | 2019-09-29 01:42 | XMS REPORT | Clinical Summary ---
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 [...] Checo Conklin MD Mastalgia ICD-611.71 Inactive Checo Johsua Sinusitis ICD-461.9 Inactive Checo Conklin MD Insect bite ICD-919.4 Inactive Checo oCnklin MD Carbuncle/furuncle NOS ICD-680.9 Inactive Hilaria Conklin [...] tab by mouth twice daily 2 TRIMETHOPRIM-SULFAMETHOXAZOLE 82346174913 No Longer Active Tanner Carrillo MD Active DIFLUCAN 150 MG TAB 1 tablet by mouth qod FLUCO NAZOLE 18231365459 No Longer Active Efren Medel APRN Active CLARITIN 10 MG TAB 1 tablet by mouth daily as needed for allergies LORATADINE 50857716107 Active Jillina Lizy BAND RIPSAW OPERATOR Active AZITHROMYCIN 250 MG TABS 2 po qd x 1 day, then 1 po qd x 4 days AZITHROMYCIN 46948294154 No Longer Active Jillina Lizy RIDDLEN Active FLAGYL 500 MG TAB 1 tablet by mouth bid METRONI DAZOLE 53772967169 No Longer Active Checo Conklin MD Active FOCALIN XR 10 MG ORAL [id number] 1 po q a.m. DEX METHYLPHENIDATE HCL 85233570635 Active Checo Conklin MD Active MAGNESIUM CITRATE 1.745 GM/30ML ORAL SOLN 150ml po BID PRN C onstipation MAGNESIUM CITRATE 95628810721 No Longer Active Checo Conklin MD Active BACTROBAN 2 % CREAM Apply to affected area BID for up to 10 days MUPIROCIN CALCIUM 74023942515 No Longer Active Checo Conklin MD Active HYDROCODONE-ACETAMINOPHEN 5-325 MG TABS 1 tab by mouth every 6 hours as needed HYDROCODONE-ACETAMINOPHEN 05869369314 No Longer Activ e Checo Conklin MD Active IBUPROFEN 800 MG TABS 1 tab every 8 hours with food 20 31/03/21 IBUPROFEN 59654474066 No Longer Active Checo Conklin MD Activ e DIFLUCAN 150 MG TAB 1 tablet by mouth if needed, hold until symptoms start FLUCONAZOLE 98040348414 No Longer Active Checo Ortiz MD Active BACTRIM DS 800-160 MG TAB 1 tab by mouth twice daily 2 TRIMETHOPRIM-SULFAMETHOXAZOLE 88813257999 No Longer Active Corry leong LPN Active MIRALAX PACK 1 po qd PRN Constipation POLYETHYL JOEL GLYCOL 3350 97198678057 Active Checo Conklin MD Active HYDROCODONE-ACETAMINOPHEN 5-325 MG TABS 0.5 to 1 tab b y mouth every 6 hours as needed HYDROCODONE-ACETAMINOPHEN 10381266296 No Longer Active Checo Conklin MD Active ONDANSETRON [address] one tablet on tongue and allow to dissolve every 6 hours as needed for vomitting ONDANSETRO N 30984283201 No Longer Active Checo Conklin MD Active COMPRO 25 MG RECTAL SUPP insert or apply one supposit ory rectally as directed every 12 hours as needed for nausea PROCHLORPERA ZINE 45368688771 No Longer Active Checo Conklin MD Active SUMATRIPTAN SUCCINATE 100 MG ORAL TABS Take one PRN for migrane SUMATRIPTAN SUCCINATE 62766572337 No Longer Active Checo Conklin MD Active TRAVEL SICKNESS 25 MG ORAL CHEW chew and swallow one t ablet every 6 hours as needed MECLIZINE HCL 13668969997 No Longer Active Joe Conklin MD Active BUPROPION HCL ER (SR) 100 MG ORAL [id number] take one t ablet by mouth one time daily for one week then take 1 two times daily BUPROPION HCL 96109886825 No Longer Active Checo Conklin MD Activ e TERBINAFINE HCL 250 MG ORAL TABS take one table PO one time abran y TERBINAFINE HCL 02650779302 No Longer Active Checo Conklin MD Active METOCLOPRAMIDE HCL 10 MG ORAL TABS take one PO tid PRN nausea 20 29/12/14 METOCLOPRAMIDE HCL 39703707941 No Longer Active Checo Conklin MD Active DICLOFENAC SODIUM 75 MG TBEC 1 tablet by mouth twice daily P RN Knee pain DICLOFENAC SODIUM 51200425886 No Longer Active Checo Conklin MD Active LAMISIL 250 MG TAB 1 po qd TERBINAFINE HCL 548 84905216 No Longer Active Checo Conklin MD Active REGLAN 10 MG TAB 1 po TID PRN Nausea METOCLOPRA MIDE HCL 32848872911 No Longer Active Checo Conklin MD Active CELEXA 20 MG TABS 1 tablet by mouth daily CITALOPRAM HYDROBROMIDE 00752666310 No Longer Active Checo Conklin MD Activ e AZITHROMYCIN 250 MG TABS 2 po qd x 1 day, then 1 po qd x 4 days AZITHROMYCIN 90492330905 No Longer Active Checo Conklin MD Active HYDROCODONE-ACETAMINOPHEN 5-325 MG TABS 1 po q 6hr PRN Pain 2013 HYDROCODONE-ACETAMINOPHEN 60754461204 No Longer Active eLnora Conklin MD Active PHENAZOPYRIDINE HCL 200 MG TABS take 1 tab po TID for bladder pa in PHENAZOPYRIDINE HCL 32903856610 No Longer Active Checo Joshua Active CIPRO 500 MG TAB 1 tablet by mouth twice daily CIPROFLOXACIN HCL 40192022427 No Longer Active Dangelo Rangel MD Active HYDROCODONE-ACETAMINOPHEN 5-325 MG TABS 1/2 to 1 po q 4 hour s prn cough HYDROCODONE-ACETAMINOPHEN 37505997999 No Longer Activ e Dangelo Rangel MD Active BACTRIM DS 800-160 MG TABS 1 po BID x 7 days 0 SULFAMETHOXAZOLE-TRIMETHOPRIM 41789054411 No Longer Active Checo Conklin MD Active PREDNISONE 20 MG TAB 2 tabs daily for 3 days, 1 t ab daily for 3 days, 1/2 tab daily for 2 days PREDNISONE 08765627937 No Longer Active Checo Conklin MD Active TRIAMCINOLONE ACETONIDE 0.1 % OINT Apply to affected a reas TID for up to 2 weeks TRIAMCINOLONE ACETONIDE 72801567560 No Longer A ctive Checo Conklin MD Active CEFDINIR 300 MG CAPS by mouth twice a day CEFDI JAZZY 25809011234 No Longer Active Dangelo Rangel MD Active BUPROPION HCL (SMOKING DETER) 150 MG [id number] 1 a day for 1 week then 1 twice a day BUPROPION HCL (SMOKING DETER) 80271635313 No Lo nger Active Checo Conklin MD Active SIMVASTATIN 20 MG TABS 1 po qd SIMVASTATIN 6473769514 5 Active Checo Conklin MD Active CHANTIX STARTING MONTH KARTHIK 0.5 MG X 11 & 1 MG X 42 TAB S 0.5mg daily for 3 days, then 0.5mg BID for 4 days, then 1mg BID VARENICLINE TARTRATE 47901230944 No Longer Active Checo Conklin MD Activ e XANAX 0.5 MG TABS 1 po BID PRN anxiety ALPRAZOLAM 91289570143 Active Checo Conklin MD Active CONCERTA 18 MG CR-TABS 1 po q a.m. METHYLPHENID ATE HCL 61876388993 No Longer Active Checo Conklin MD Active AMBIEN 5 MG TAB 1 po qHS PRN Insomnia ZOLPIDEM TARTRATE 95114855999 Active Checo Conklin MD Active TRAZODONE HCL 100 MG TAB 0.5 to 1 po qHS PRN Insomnia TRAZODONE HCL 79041153187 No Longer Active Checo Conklin MD Acti ve FIORICET 325-50-40 MG TAB 1 tablet by mouth four times daily as needed [id number] 59830434134 No Longer Active Checo Conklin MD Active PHENERGAN CREAM* 25mg applied to wrist q6hr PRN Nausea PHENERGAN CREAM* No Longer Active Checo Conklin MD A ctive FLONASE 50 MCG/ACT SUSP 1 spray each nostril am and hs FLUTICASONE PROPIONATE 13322402199 No Longer Active Checo Conklin MD Activ e ANTIPYRINE-BENZOCAINE 5.4-1.4 % SOLN 1-2 drops in affected ear BENZOCAINE-ANTIPYRINE 76934907695 No Longer Active Checo Conklin MD Active CEFDINIR 300 MG CAPS 1 po bid CEFDINIR 09400376 120 No Longer Active Checo Conklin MD Active PREDNISONE 20 MG TAB 2 tabs daily for 3 days, 1 t ab daily for 3 days, 1/2 tab daily for 2 days PREDNISONE 87752017033 No Longer Active Aracelis Conklin MD Active AZITHROMYCIN 250 MG TABS 2 po qd x 1 day, then 1 po qd x 4 days AZITHROMYCIN 62809526791 No Longer Active Checo Conklin MD Active PREDNISONE 20 MG TAB 2 tabs daily for 3 days, 1 t ab daily for 3 days, 1/2 tab daily for 2 days PREDNISONE 26555270128 No Longer Active Checo Conklin MD Active ZITHROMAX Z-KARTHIK 250 MG TABS 2 today, then 1 daily for 4 days 201 09/18/28 AZITHROMYCIN 04087144390 No Longer Active Paul Hamlin MD Active FOCALIN XR 10 MG [id number] 1 po q a.m. D EXMETHYLPHENIDATE HCL 59318632129 No Longer Active Paul Hamlin MD Activ e PERCOCET 10-325 MG TABS 1 tablet every 6 hours as needed for pain OXYCODONE-ACETAMINOPHEN 27702592229 No Longer Active Paul Hamlin MD Active LORTAB 5 5-500 MG TABS 1/2 to 1 tablet by mouth flaquito ry 4 hours as needed for pain HYDROCODONE-ACETAMINOPHEN 05572239166 No Longer Active Checo Conklin MD Active FOCALIN XR 15 MG [id number] 1 po q a.m. D EXMETHYLPHENIDATE HCL 13057308874 No Longer Active Checo Conklin MD Activ e ZOFRAN ODT 4 MG TBDP 1 po q6hr PRN Nausea ONDAN SETRON 79013480001 No Longer Active Checo Conklin MD Active PERCOCET 5-325 MG TABS 1 tablet by mouth every 6 hours as needed OXYCODONE-ACETAMINOPHEN 56417499970 No Longer Active Checo Conklin MD Active PYRIDIUM 200 MG TABS take 1 tab po TID prn urinary pain. 0 PHENAZOPYRIDINE HCL 06861162407 No Longer Active Checo Conklin MD Active FLUCONAZOLE 150 MG TABS take 1 tab po qday once 0 04/06 FLUCONAZOLE 97932656485 No Longer Active Dangelo Rangel MD Acti ve CIPRO 500 MG TAB 1 tablet by mouth twice daily CIPROFLOXACIN HCL 49430207734 No Longer Active Dangelo Rangel MD Active PYRIDIUM 200 MG TABS take 1 tab po TID prn urinary pain. 0 PYRIDIUM 200 MG TABS 4831385 PHENAZOPYRIDINE HCL Inactive PERCOCET 5-325 MG TABS 1 tablet by mouth every 6 hours as needed PERCOCET 5-325 MG TABS 5069559 OXYCODONE-ACETAMINOPHEN I nactive ZOFRAN ODT 4 MG TBDP 1 po q6hr PRN Nausea ZOFRAN ODT 4 MG TBDP 658457 ONDANSETRON Inactive FOCALIN XR 15 MG [id number] 1 po q a.m. F OCALIN XR 15 MG [id number] DEXMETHYLPHENIDATE HCL Inactive LORTAB 5 5-500 MG TABS 1/2 to 1 tablet by mouth flaquito ry 4 hours as needed for pain LORTAB 5 5-500 MG TABS HYDROCODONE-A CETAMINOPHEN Inactive PERCOCET 10-325 MG TABS 1 tablet every 6 hours as needed for pain PERCOCET 10-325 MG TABS 7761385 OXYCODONE-ACETAMINOPHEN Inactive FOCALIN XR 10 MG [id number] 1 po q a.m. F OCALIN XR 10 MG [id number] DEXMETHYLPHENIDATE HCL Inactive CEFDINIR 300 MG CAPS 1 po bid CEFDINIR 300 MG CAPS 20 0346 CEFDINIR Inactive ANTIPYRINE-BENZOCAINE 5.4-1.4 % SOLN 1-2 drops in affected ear ANTIPYRINE-BENZOCAINE 5.4-1.4 % SOLN 636500 BENZOCAINE-ANTIPYRINE I nactive FLONASE 50 MCG/ACT SUSP [...] PRN Insomnia TRAZODONE HCL 100 MG TAB 353503 TRAZODONE HCL Inactive CONCERTA 18 MG CR-TABS [...] s prn cough HYDROCODONE-ACETAMINOPHEN 5-325 MG TABS 565637 HYDROCODONE-ACETAMINOPHEN Inactive PHENAZOPYRIDINE HCL 200 MG TABS take 1 tab po TID for bladder pa in PHENAZOPYRIDINE HCL 200 MG TABS 0180519 PHENAZOPYRIDINE HCL Inactive HYDROCODONE-ACETAMINOPHEN 5-325 MG TABS 1 po q 6hr PRN Pain 2013 HYDROCODONE-ACETAMINOPHEN 5-325 MG TABS 324736 HYDROCODONE-ACETAMINOPHEN Inactive CELEXA 20 MG TABS 1 tablet by mouth daily CELEXA 20 MG TABS 471605 CITALOPRAM HYDROBROMIDE Inactive REGLAN 10 MG TAB 1 po TID PRN Nausea REGLAN 10 MG TAB 926400 METOCLOPRAMIDE HCL Inactive LAMISIL 250 MG TAB 1 po qd LAMISIL 250 MG TAB 830573 TERBINAFINE HCL Inactive DICLOFENAC SODIUM 75 MG TBEC 1 tablet by mouth twice daily P RN Knee pain DICLOFENAC SODIUM 75 MG TBEC 031726 DICLOFENAC S ODIUM Inactive METOCLOPRAMIDE HCL 10 MG ORAL TABS take one PO tid PRN nausea 20 29/12/14 METOCLOPRAMIDE HCL 10 MG ORAL TABS 567638 METOCLOPRAMID E HCL Inactive TERBINAFINE HCL 250 MG ORAL TABS take one table PO one time abran y TERBINAFINE HCL 250 MG ORAL TABS 495051 TERBINAFINE HCL Inactive BUPROPION HCL ER (SR) 100 MG ORAL [id number] take one t ablet by mouth one time daily for one week then take 1 two times daily BUPROPION HCL ER (SR) 100 MG ORAL [id number] BUPROPION HCL Inacti ve TRAVEL SICKNESS 25 MG ORAL CHEW chew and swallow one t ablet every 6 hours as needed TRAVEL SICKNESS 25 MG ORAL CHEW 717021 MECLIZINE HCL Inactive SUMATRIPTAN SUCCINATE 100 MG ORAL TABS Take one PRN for migrane SUMATRIPTAN SUCCINATE 100 MG ORAL TABS 884487 SUMATRIPT AN SUCCINATE Inactive COMPRO 25 MG RECTAL SUPP insert or apply one supposit ory rectally as directed every 12 hours as needed for nausea COMP RO 25 MG RECTAL SUPP 767213 PROCHLORPERAZINE Inactive ONDANSETRON [address] one tablet on tongue and allow to dissolve every 6 hours as needed for vomitting ON DANSETRON 8 MG ORAL TBDP 616388 ONDANSETRON Inactive HYDROCODONE-ACETAMINOPHEN 5-325 MG TABS 0.5 to 1 tab b y mouth every 6 hours as needed HYDROCODONE-ACETAMINOPHEN 5-325 MG TABS 8 40734 HYDROCODONE-ACETAMINOPHEN Inactive BACTRIM DS 800-160 MG TAB 1 tab by mouth twice daily 2 BACTRIM DS 800-160 MG TAB 922957 TRIMETHOPRIM-SULFAMETHOXAZOLE Inac tive DIFLUCAN 150 MG TAB 1 tablet by mouth if needed, hold until symptoms start DIFLUCAN 150 MG TAB 929893 FLUCONAZOLE Inactive IBUPROFEN 800 MG TABS 1 tab every 8 hours with food 31/03/21 IBUPROFEN 800 MG TABS 188450 IBUPROFEN Inactive HYDROCODONE-ACETAMINOPHEN 5-325 MG TABS 1 tab by mouth every 6 hours as needed HYDROCODONE-ACETAMINOPHEN 5-325 MG TABS 066795 HYDROCODONE-ACETAMINOPHEN Inactive BACTROBAN 2 % CREAM Apply to affected area BID for up to 10 days BACTROBAN 2 % CREAM 086498 MUPIROCIN CALCIUM Inactive MAGNESIUM CITRATE 1.745 GM/30ML ORAL SOLN 150ml po BID PRN C onstipation MAGNESIUM CITRATE 1.745 GM/30ML ORAL SOLN 184331 0 MAGNESIUM CITRATE Inactive DIFLUCAN 150 MG TAB 1 tablet by mouth qod DIFLUCAN 150 MG TAB 888320 FLUCONAZOLE Inactive BACTRIM DS 800-160 MG TAB 1 tab by mouth twice daily 2 BACTRIM DS 800-160 MG TAB 624725 TRIMETHOPRIM-SULFAMETHOXAZOLE Inac tive CIPRO 500 MG TAB 1 tablet by mouth twice daily CIPRO 500 MG TAB 564871 CIPROFLOXACIN HCL Inactive FLUCONAZOLE 150 MG TABS take 1 tab po qday once 04/06 FLUCONAZOLE 150 MG TABS 645479 FLUCONAZOLE Inactive ZITHROMAX Z-KARTHIK 250 MG TABS 2 today, then 1 daily for 4 days 201 09/18/28 ZITHROMAX Z-KARTHIK 250 MG TABS 3967918 AZITHROMYCIN Inac tive PREDNISONE 20 MG TAB 2 tabs daily for 3 days, 1 t ab daily for 3 days, 1/2 tab daily for 2 days PREDNISONE 20 MG TAB 067974 PREDNISON E Inactive AZITHROMYCIN 250 MG TABS 2 po qd x 1 day, then 1 po qd x 4 days AZITHROMYCIN 250 MG TABS 4027800 AZITHROMYCIN Inactiv e PREDNISONE 20 MG TAB 2 tabs daily for 3 days, 1 t ab daily for 3 days, 1/2 tab daily for 2 days PREDNISONE 20 MG TAB 886902 PREDNISON E Inactive CEFDINIR 300 MG CAPS by mouth twice a day CEFDINIR 300 MG CAPS 722054 CEFDINIR Inactive TRIAMCINOLONE ACETONIDE 0.1 % OINT Apply to affected a reas TID for up to 2 weeks TRIAMCINOLONE ACETONIDE 0.1 % OINT 341304 6 TRIAMCINOLONE ACETONIDE Inactive PREDNISONE 20 MG TAB 2 tabs daily for 3 days, 1 t ab daily for 3 days, 1/2 tab daily for 2 days PREDNISONE 20 MG TAB 196287 PREDNISON E Inactive BACTRIM DS 800-160 MG TABS 1 po BID x 7 days 0 BACTRIM DS 800-160 MG TABS 328105 SULFAMETHOXAZOLE-TRIMETHOPRIM Inactive CIPRO 500 MG TAB 1 tablet by mouth twice daily CIPRO 500 MG TAB 142468 CIPROFLOXACIN HCL Inactive AZITHROMYCIN 250 MG TABS 2 po qd x 1 day, then 1 po qd x 4 days AZITHROMYCIN 250 MG TABS 8378724 AZITHROMYCIN Inactiv e FLAGYL 500 MG TAB 1 tablet by mouth bid FLAGYL 500 MG TAB 543603 METRONIDAZOLE Inactive AZITHROMYCIN 250 MG TABS 2 po qd x 1 day, then 1 po qd x 4 days AZITHROMYCIN 250 MG TABS 6491888 AZITHROMYCIN Inactiv e Immunizations Vaccine Administration Date [...] ... - Chemistry sodium, serum 141 mmol/L 861-057 4134/01/26 carbon dioxide, venous blood 30.0 mmol/L 21.0-32 .0 potassium, serum 4.0 mmol/L 3.5-5.2 chloride, serum 105 mmol/L 98-107 blood glucose 85 mg/dL 65-110 urea nitrogen, blood 9 mg/dL 7-18 creatinine, serum 0.66 mg/dL 0.55-1.30 alanine aminotransferase (SGPT), serum 31 U/L 12-78 aspartate aminotransferase (SGOT), serum 21 U/L 15-37 calcium, serum 8.2 mg/dL 8.5-10.1 bilirubin, serum, total 1.10 mg/dL 0.00-1.00 cholesterol, serum 178 mg/dL 252-236 2745/01/26 triglyceride, serum, fasting 149 mg/dL 30-200 HDL [...] ... - Chemistry sodium, serum 137 mmol/L 275-239 1360/05/27 carbon dioxide, venous blood 29.1 mmol/L 21.0-32 [...] 5.0-8.5 Encounters Code Encounter Date Provider Facility CPT-55597 Level 2 Est. Patient 19:53:27 CDT Tanner hill MD [facility] CPT-36453 Level 3 Est. Patient 09:15:34 CDT Efren almendarez [facility] CPT-00343 Level 3 Est. Patient 11:28:51 PRESS OPERATOR APPRENTICE Efren almendarez [facility] CPT-03811 Level 4 Est. Patient 13:55:46 PRESS OPERATOR APPRENTICE Checo Conklin MD [facility] CPT-23903 Level 4 Est. Patient 17:10:53 CDT Checo Conklin MD [facility] CPT-23990 Level 3 Est. Patient 15:56:22 CDT Checo Conklin MD [facility] CPT-35558 Level 3 Est. Patient 15:29:07 CDT Checo Conklin MD [facility] CPT-90109 Level 3 Est. Patient 14:38:41 CDT Checo Conklin MD [facility] CPT-20629 Level 3 Est. Patient 15:22:03 PRESS OPERATOR APPRENTICE Thomas reynolds DO [facility] CPT-85733 Level 3 Est. Patient 13:34:17 PRESS OPERATOR APPRENTICE Checo Conklin MD [facility] CPT-26383 Level 3 Est. Patient 12:29:32 CDT Dangelo arroyo MD [facility] CPT-95864 Level 3 Est. Patient 16:53:02 CDT Checo Conklin MD [facility] CPT-01964 Level 3 Est. Patient 16:37:13 CDT Checo Conklin MD [facility] CPT-44923 Level 3 Est. Patient 16:16:59 CDT Paul Hamlin MD [facility] CPT-16014 Level 3 Est. Patient 14:20:13 CDT Dangelo arroyo MD [facility] CPT-34344 Level 4 Est. Patient 11:29:33 CDT Checo Conklin MD [facility] CPT-88593 Level 3 Est. Patient 17:08:31 CDT Checo Conklin MD [facility] CPT-54138 Level 3 Est. Patient 16:50:42 PRESS OPERATOR APPRENTICE Checo Conklin MD [facility] CPT-38780 Level 4 Est. Patient 09:26:08 PRESS OPERATOR APPRENTICE Checo Conklin MD [facility] CPT-94877 Level 3 Est. Patient 11:37:10 CDT Checo Conklin MD [facility] CPT-07122 Level 4 Est. Patient 14:07:38 CDT Checo Conklin MD [facility] CPT-50712 Level 3 Est. Patient 09:54:41 CDT Checo Conklin MD [facility] CPT-77305 Level 3 Est. Patient 11:10:54 CDT Paul Hamlin MD [facility] CPT-19369 Level 3 Est. Patient 14:16:56 PRESS OPERATOR APPRENTICE Checo Conklin MD [facility] CPT-87282 Level 3 Est. Patient 11:04:11 PRESS OPERATOR APPRENTICE Checo Conklin MD [facility] CPT-05381 Level 3 Est. Patient 17:09:26 CDT Dangelo arroyo MD [facility] CPT-97731 Level 3 Est. Patient 16:54:37 CDT Checo Conklin MD [facility] Procedures Code Procedure Name Date Entry Date Standard Desc ription CPT-LR Lesion Removal 19:53:27 CDT CPT-OV Office Visit 11:31:28 CDT CPT-66002 Tubersol 09:39:29 CDT CPT-J2550 Phenergan 25 mg (Promethazine) 13:59:02 PRESS OPERATOR APPRENTICE CPT-J1885 Toradol 60 mg (Ketorolac) 13:59:02 PRESS OPERATOR APPRENTICE 2012
--- OUTSIDE RECORDS SUMMARY | 2019-09-29 01:42 | XMS REPORT | Clinical Summary ---
Author Author Admin, Bethany Ayala [facility] Address Unknown Phone Unavailable Allergies, Adverse Reactions, [...] status migrainosus Breast mass, right 611.72 Resolved Cheoc richey MD Lump or mass in breast [...] TABS 1.5 po qd PAROX ETINE HCL 88568244213 Active Checo Conklin MD Active FLUTICASONE PROPIONATE 50 MCG/ACT NASAL SUSP 2 sprays/ nostril qd PRN Congestion/Allergies FLUTICASONE PROPIONATE 0263905204 5 No Longer Active Checo Conklin MD Active AMOXICILLIN 500 MG ORAL CAPS 2 po BID x 10 days 09/12 AMOXICILLIN 56760410503 No Longer Active Checo Conklin MD Activ e MIRALAX ORAL POWD 8.5 to 17g po qd PRN Constipation POLYETHYLENE GLYCOL 3350 70620789738 Active Checo Conklin MD Active CLARITIN 10 MG TAB 1 tablet by mouth daily as needed for allergi es LORATADINE 45997820191 No Longer Active Checo Conklin MD Active BACTRIM DS 800-160 MG TAB 1 tab by mouth twice daily 2 TRIMETHOPRIM-SULFAMETHOXAZOLE 83664897661 No Longer Active Tanner Carrillo MD Active DIFLUCAN 150 MG TAB 1 tablet by mouth qod FLUCO NAZOLE 16625781174 No Longer Active Jillina Frazell [employer] Active AZITHROMYCIN 250 MG TABS 2 po qd x 1 day, then 1 po qd x 4 days AZITHROMYCIN 36772050526 No Longer Active Efren Medel APRN Active FLAGYL 500 MG TAB 1 tablet by mouth bid METRONI DAZOLE 98549998759 No Longer Active Checo Conklin MD Active FOCALIN XR 10 MG ORAL [id number] 1 po q a.m. DEX METHYLPHENIDATE HCL 19575960150 Active Checo Conklin MD Active MAGNESIUM CITRATE 1.745 GM/30ML ORAL SOLN 150ml po BID PRN C onstipation MAGNESIUM CITRATE 74832396533 No Longer Active Checo Conklin MD Active BACTROBAN 2 % CREAM Apply to affected area BID for up to 10 days MUPIROCIN CALCIUM 66620687829 No Longer Active Checo Conklin MD Active HYDROCODONE-ACETAMINOPHEN 5-325 MG TABS 1 tab by mouth every 6 hours as needed HYDROCODONE-ACETAMINOPHEN 43525170142 No Longer Activ e Checo Conklin MD Active IBUPROFEN 800 MG TABS 1 tab every 8 hours with food 20 31/03/21 IBUPROFEN 86395696230 No Longer Active Checo Conklin MD Activ e DIFLUCAN 150 MG TAB 1 tablet by mouth if needed, hold until symptoms start FLUCONAZOLE 43456394784 No Longer Active Checo Ortiz MD Active BACTRIM DS 800-160 MG TAB 1 tab by mouth twice daily 2 TRIMETHOPRIM-SULFAMETHOXAZOLE 81786549513 No Longer Active Corry leong LPN Active HYDROCODONE-ACETAMINOPHEN 5-325 MG TABS 0.5 to 1 tab b y mouth every 6 hours as needed HYDROCODONE-ACETAMINOPHEN 24893628792 No Longer Active Checo Conklin MD Active ONDANSETRON [address] one tablet on tongue and allow to dissolve every 6 hours as needed for vomitting ONDANSETRO N 97034744991 No Longer Active Checo Conklin MD Active COMPRO 25 MG RECTAL SUPP insert or apply one supposit ory rectally as directed every 12 hours as needed for nausea PROCHLORPERA ZINE 07509355318 No Longer Active Checo Conklin MD Active SUMATRIPTAN SUCCINATE 100 MG ORAL TABS Take one PRN for migrane SUMATRIPTAN SUCCINATE 00297997984 No Longer Active Checo Conklin MD Active TRAVEL SICKNESS 25 MG ORAL CHEW chew and swallow one t ablet every 6 hours as needed MECLIZINE HCL 42750050479 No Longer Active Joe Conklin MD Active BUPROPION HCL ER (SR) 100 MG ORAL [id number] take one t ablet by mouth one time daily for one week then take 1 two times daily BUPROPION HCL 48683915627 No Longer Active Checo Conklin MD Activ e TERBINAFINE HCL 250 MG ORAL TABS take one table PO one time abran y TERBINAFINE HCL 96240816968 No Longer Active Checo Conklin MD Active METOCLOPRAMIDE HCL 10 MG ORAL TABS take one PO tid PRN nausea 20 29/12/14 METOCLOPRAMIDE HCL 78960534759 No Longer Active Checo Conklin MD Active DICLOFENAC SODIUM 75 MG TBEC 1 tablet by mouth twice daily P RN Knee pain DICLOFENAC SODIUM 95160038073 No Longer Active Checo Conklin MD Active LAMISIL 250 MG TAB 1 po qd TERBINAFINE HCL 548 96271205 No Longer Active Checo Conklin MD Active REGLAN 10 MG TAB 1 po TID PRN Nausea METOCLOPRA MIDE HCL 34915918754 No Longer Active Checo Conklin MD Active CELEXA 20 MG TABS 1 tablet by mouth daily CITALOPRAM HYDROBROMIDE 82724746302 No Longer Active Checo Conklin MD Activ e AZITHROMYCIN 250 MG TABS 2 po qd x 1 day, then 1 po qd x 4 days AZITHROMYCIN 58225544683 No Longer Active Checo Conklin MD Active HYDROCODONE-ACETAMINOPHEN 5-325 MG TABS 1 po q 6hr PRN Pain 2013 HYDROCODONE-ACETAMINOPHEN 52643935915 No Longer Active Lenora Conklin MD Active PHENAZOPYRIDINE HCL 200 MG TABS take 1 tab po TID for bladder pa in PHENAZOPYRIDINE HCL 79476175910 No Longer Active Checo Joshua Active CIPRO 500 MG TAB 1 tablet by mouth twice daily CIPROFLOXACIN HCL 90607071802 No Longer Active Dangelo Rangel MD Active HYDROCODONE-ACETAMINOPHEN 5-325 MG TABS 1/2 to 1 po q 4 hour s prn cough HYDROCODONE-ACETAMINOPHEN 73450645946 No Longer Activ e Dangelo Rangel MD Active BACTRIM DS 800-160 MG TABS 1 po BID x 7 days 0 SULFAMETHOXAZOLE-TRIMETHOPRIM 18691220220 No Longer Active Checo Conklin MD Active PREDNISONE 20 MG TAB 2 tabs daily for 3 days, 1 t ab daily for 3 days, 1/2 tab daily for 2 days PREDNISONE 96704912931 No Longer Active Checo Conklin MD Active TRIAMCINOLONE ACETONIDE 0.1 % OINT Apply to affected a reas TID for up to 2 weeks TRIAMCINOLONE ACETONIDE 75640482638 No Longer A ctive Checo Conklin MD Active CEFDINIR 300 MG CAPS by mouth twice a day CEFDI JAZZY 59246679798 No Longer Active Dangelo Rangel MD Active BUPROPION HCL (SMOKING DETER) 150 MG [id number] 1 a day for 1 week then 1 twice a day BUPROPION HCL (SMOKING DETER) 28453792197 No Lo nger Active Checo Conklin MD Active SIMVASTATIN 20 MG TABS 1 po qd SIMVASTATIN 4839411485 5 Active Checo Conklin MD Active CHANTIX STARTING MONTH KARTHIK 0.5 MG X 11 & 1 MG X 42 TAB S 0.5mg daily for 3 days, then 0.5mg BID for 4 days, then 1mg BID VARENICLINE TARTRATE 75268811449 No Longer Active Checo Conklin MD Activ e XANAX 0.5 MG TABS 1 po BID PRN anxiety ALPRAZOLAM 05140960775 Active Checo Conklin MD Active CONCERTA 18 MG CR-TABS 1 po q a.m. METHYLPHENID ATE HCL 22146189395 No Longer Active Checo Conklin MD Active AMBIEN 5 MG TAB 1 po qHS PRN Insomnia ZOLPIDEM TARTRATE 18704226721 Active Checo Conklin MD Active TRAZODONE HCL 100 MG TAB 0.5 to 1 po qHS PRN Insomnia TRAZODONE HCL 15633209821 No Longer Active Checo Conklin MD Acti ve FIORICET 325-50-40 MG TAB 1 tablet by mouth four times daily as needed [id number] 42974783826 No Longer Active Checo Conklin MD Active PHENERGAN CREAM* 25mg applied to wrist q6hr PRN Nausea PHENERGAN CREAM* No Longer Active Checo Conklin MD A ctive FLONASE 50 MCG/ACT SUSP 1 spray each nostril am and hs FLUTICASONE PROPIONATE 30255005974 No Longer Active Checo Simms e ANTIPYRINE-BENZOCAINE 5.4-1.4 % SOLN 1-2 drops in affected ear BENZOCAINE-ANTIPYRINE 03898458406 No Longer Active Checo Conklin MD Active CEFDINIR 300 MG CAPS 1 po bid CEFDINIR 25161224 120 No Longer Active Checo Conklin MD Active PREDNISONE 20 MG TAB 2 tabs daily for 3 days, 1 t ab daily for 3 days, 1/2 tab daily for 2 days PREDNISONE 13911194157 No Longer Active Aracelis Conklin MD Active AZITHROMYCIN 250 MG TABS 2 po qd x 1 day, then 1 po qd x 4 days AZITHROMYCIN 88879534258 No Longer Active Checo Conklin MD Active PREDNISONE 20 MG TAB 2 tabs daily for 3 days, 1 t ab daily for 3 days, 1/2 tab daily for 2 days PREDNISONE 33362431394 No Longer Active Checo Conklin MD Active ZITHROMAX Z-KARTHIK 250 MG TABS 2 today, then 1 daily for 4 days 201 09/18/28 AZITHROMYCIN 29924187368 No Longer Active Paul Hamlin MD Active FOCALIN XR 10 MG [id number] 1 po q a.m. D EXMETHYLPHENIDATE HCL 56404978337 No Longer Active Paul Hamlin MD Activ e PERCOCET 10-325 MG TABS 1 tablet every 6 hours as needed for pain OXYCODONE-ACETAMINOPHEN 99082674863 No Longer Active Paul Hamlin MD Active LORTAB 5 5-500 MG TABS 1/2 to 1 tablet by mouth flaquito ry 4 hours as needed for pain HYDROCODONE-ACETAMINOPHEN 77375930878 No Longer Active Checo Conklin MD Active FOCALIN XR 15 MG [id number] 1 po q a.m. D EXMETHYLPHENIDATE HCL 00026043097 No Longer Active Checo Conklin MD Activ e ZOFRAN ODT 4 MG TBDP 1 po q6hr PRN Nausea ONDAN SETRON 15467124034 No Longer Active Checo Conklin MD Active PERCOCET 5-325 MG TABS 1 tablet by mouth every 6 hours as needed OXYCODONE-ACETAMINOPHEN 68111027434 No Longer Active Checo Conklin MD Active PYRIDIUM 200 MG TABS take 1 tab po TID prn urinary pain. 0 PHENAZOPYRIDINE HCL 21766136106 No Longer Active Checo Conklin MD Active FLUCONAZOLE 150 MG TABS take 1 tab po qday once 04/06 FLUCONAZOLE 16487767175 No Longer Active Dangelo Rangel MD Acti ve CIPRO 500 MG TAB 1 tablet by mouth twice daily CIPROFLOXACIN HCL 08615571909 No Longer Active Dangelo Rangel MD Active PYRIDIUM 200 MG TABS take 1 tab po TID prn urinary pain. 0 PYRIDIUM 200 MG TABS 2538832 PHENAZOPYRIDINE HCL Inactive PERCOCET 5-325 MG TABS 1 tablet by mouth every 6 hours as needed PERCOCET 5-325 MG TABS 4986071 OXYCODONE-ACETAMINOPHEN I nactive ZOFRAN ODT 4 MG TBDP 1 po q6hr PRN Nausea ZOFRAN ODT 4 MG TBDP 980113 ONDANSETRON Inactive FOCALIN XR 15 MG [id number] 1 po q a.m. F OCALIN XR 15 MG [id number] DEXMETHYLPHENIDATE HCL Inactive LORTAB 5 5-500 MG TABS 1/2 to 1 tablet by mouth flaquito ry 4 hours as needed for pain LORTAB 5 5-500 MG TABS HYDROCODONE-A CETAMINOPHEN Inactive PERCOCET 10-325 MG TABS 1 tablet every 6 hours as needed for pain PERCOCET 10-325 MG TABS 2291159 OXYCODONE-ACETAMINOPHEN Inactive FOCALIN XR 10 MG [id number] 1 po q a.m. F OCALIN XR 10 MG [id number] DEXMETHYLPHENIDATE HCL Inactive CEFDINIR 300 MG CAPS [...] PRN Insomnia TRAZODONE HCL 100 MG TAB 237549 TRAZODONE HCL Inactive CONCERTA 18 MG CR-TABS [...] s prn cough HYDROCODONE-ACETAMINOPHEN 5-325 MG TABS 561683 HYDROCODONE-ACETAMINOPHEN Inactive PHENAZOPYRIDINE HCL 200 MG TABS take 1 tab po TID for bladder pa in PHENAZOPYRIDINE HCL 200 MG TABS 3850876 PHENAZOPYRIDINE HCL Inactive HYDROCODONE-ACETAMINOPHEN 5-325 MG TABS 1 po q 6hr PRN Pain 2013 HYDROCODONE-ACETAMINOPHEN 5-325 MG TABS 484827 HYDROCODONE-ACETAMINOPHEN Inactive CELEXA 20 MG TABS 1 tablet by mouth daily CELEXA 20 MG TABS 164148 CITALOPRAM HYDROBROMIDE Inactive REGLAN 10 MG TAB 1 po TID PRN Nausea REGLAN 10 MG TAB 473109 METOCLOPRAMIDE HCL Inactive LAMISIL 250 MG TAB 1 po qd LAMISIL 250 MG TAB 777988 TERBINAFINE HCL Inactive DICLOFENAC SODIUM 75 MG TBEC 1 tablet by mouth twice daily P RN Knee pain DICLOFENAC SODIUM 75 MG TBE 215482 DICLOFENAC S ODIUM Inactive METOCLOPRAMIDE HCL 10 MG ORAL TABS take one PO tid PRN nausea 20 29/12/14 METOCLOPRAMIDE HCL 10 MG ORAL TABS 079453 METOCLOPRAMID E HCL Inactive TERBINAFINE HCL 250 MG ORAL TABS take one table PO one time abran y TERBINAFINE HCL 250 MG ORAL TABS 498053 TERBINAFINE HCL Inactive BUPROPION HCL ER (SR) 100 MG ORAL [id number] take one t ablet by mouth one time daily for one week then take 1 two times daily BUPROPION HCL ER (SR) 100 MG ORAL [id number] BUPROPION HCL Inacti ve TRAVEL SICKNESS 25 MG ORAL CHEW chew and swallow one t ablet every 6 hours as needed TRAVEL SICKNESS 25 MG ORAL CHEW 693620 MECLIZINE HCL Inactive SUMATRIPTAN SUCCINATE 100 MG ORAL TABS Take one PRN for migrane SUMATRIPTAN SUCCINATE 100 MG ORAL TABS 215365 SUMATRIPT AN SUCCINATE Inactive COMPRO 25 MG RECTAL SUPP insert or apply one supposit ory rectally as directed every 12 hours as needed for nausea COMP RO 25 MG RECTAL SUPP 250452 PROCHLORPERAZINE Inactive ONDANSETRON [address] one tablet on tongue and allow to dissolve every 6 hours as needed for vomitting ON DANSETRON 8 MG ORAL TBDP 302911 ONDANSETRON Inactive HYDROCODONE-ACETAMINOPHEN 5-325 MG TABS 0.5 to 1 tab b y mouth every 6 hours as needed HYDROCODONE-ACETAMINOPHEN 5-325 MG TABS 8 11753 HYDROCODONE-ACETAMINOPHEN Inactive BACTRIM DS 800-160 MG TAB 1 tab by mouth twice daily 2 BACTRIM DS 800-160 MG TAB 685744 TRIMETHOPRIM-SULFAMETHOXAZOLE Inac tive DIFLUCAN 150 MG TAB 1 tablet by mouth if needed, hold until symptoms start DIFLUCAN 150 MG TAB 19760325 FLUCONAZOLE Inactive IBUPROFEN 800 MG TABS 1 tab every 8 hours with food 31/03/21 IBUPROFEN 800 MG TABS 884967 IBUPROFEN Inactive HYDROCODONE-ACETAMINOPHEN 5-325 MG TABS 1 tab by mouth every 6 hours as needed HYDROCODONE-ACETAMINOPHEN 5-325 MG TABS 701585 HYDROCODONE-ACETAMINOPHEN Inactive BACTROBAN 2 % CREAM Apply to affected area BID for up to 10 days BACTROBAN 2 % CREAM 752520 MUPIROCIN CALCIUM Inactive MAGNESIUM CITRATE 1.745 GM/30ML ORAL SOLN 150ml po BID PRN C onstipation MAGNESIUM CITRATE 1.745 GM/30ML ORAL SOLN 592026 0 MAGNESIUM CITRATE Inactive DIFLUCAN 150 MG TAB 1 tablet by mouth qod DIFLUCAN 150 MG TAB 428951 FLUCONAZOLE Inactive BACTRIM DS 800-160 MG TAB 1 tab by mouth twice daily 2 BACTRIM DS 800-160 MG TAB 183523 TRIMETHOPRIM-SULFAMETHOXAZOLE Inac tive CLARITIN 10 MG TAB 1 tablet by mouth daily as needed for allergi es CLARITIN 10 MG TAB 557858 LORATADINE Inactive FLUTICASONE PROPIONATE 50 MCG/ACT NASAL SUSP 2 sprays/ nostril qd PRN Congestion/Allergies FLUTICASONE PROPION ATE 50 MCG/ACT NASAL SUSP 2741505 FLUTICASONE PROPIONATE Inactive CIPRO 500 MG TAB 1 tablet by mouth twice daily CIPRO 500 MG TAB 505334 CIPROFLOXACIN HCL Inactive FLUCONAZOLE 150 MG TABS take 1 tab po qday once 04/06 FLUCONAZOLE 150 MG TABS 917741 FLUCONAZOLE Inactive ZITHROMAX Z-KARTHIK 250 MG TABS 2 today, then 1 daily for 4 days 201 09/18/28 ZITHROMAX Z-KARTHIK 250 MG TABS 1822539 AZITHROMYCIN Inac tive PREDNISONE 20 MG TAB 2 tabs daily for 3 days, 1 t ab daily for 3 days, 1/2 tab daily for 2 days PREDNISONE 20 MG TAB 637546 PREDNISON E Inactive AZITHROMYCIN 250 MG TABS 2 po qd x 1 day, then 1 po qd x 4 days AZITHROMYCIN 250 MG TABS 6743774 AZITHROMYCIN Inactiv e PREDNISONE 20 MG TAB 2 tabs daily for 3 days, 1 t ab daily for 3 days, 1/2 tab daily for 2 days PREDNISONE 20 MG TAB 815097 PREDNISON E Inactive CEFDINIR 300 MG CAPS by mouth twice a day CEFDINIR 300 MG CAPS 978412 CEFDINIR Inactive TRIAMCINOLONE ACETONIDE 0.1 % OINT Apply to affected a reas TID for up to 2 weeks TRIAMCINOLONE ACETONIDE 0.1 % OINT 235044 6 TRIAMCINOLONE ACETONIDE Inactive PREDNISONE 20 MG TAB 2 tabs daily for 3 days, 1 t ab daily for 3 days, 1/2 tab daily for 2 days PREDNISONE 20 MG TAB 537113 PREDNISON E Inactive BACTRIM DS 800-160 MG TABS 1 po BID x 7 days 0 BACTRIM DS 800-160 MG TABS 342914 SULFAMETHOXAZOLE-TRIMETHOPRIM Inactive CIPRO 500 MG TAB 1 tablet by mouth twice daily CIPRO 500 MG TAB 546503 CIPROFLOXACIN HCL Inactive AZITHROMYCIN 250 MG TABS 2 po qd x 1 day, then 1 po qd x 4 days AZITHROMYCIN 250 MG TABS 3313858 AZITHROMYCIN Inactiv e FLAGYL 500 MG TAB 1 tablet by mouth bid FLAGYL 500 MG TAB 685835 METRONIDAZOLE Inactive AZITHROMYCIN 250 MG TABS 2 po qd x 1 day, then 1 po qd x 4 days AZITHROMYCIN 250 MG TABS 5021226 AZITHROMYCIN Inactiv e AMOXICILLIN 500 MG ORAL CAPS 2 po BID x 10 days 09/12 AMOXICILLIN 500 MG ORAL CAPS 217516 AMOXICILLIN Inactive Immunizations Vaccine Administration Date Value [...] 11 .6-14.8 platelet count 248 10^3/MM^3 10*3/mm3 249-653 2323/05/27 erythrocyte (RBC) count 4.40 10^6/MM^3 10*6/mm3 4.04-5.4 8 lymphocytes as percent of blood leukocytes 25.1 % 20.5-51.1 monocytes as percent of blood leukocytes 7.6 % 1.7-9.3 neutrophils as percent of blood leukocytes 64.6 % 42.2-75.2 leukocyte count, blood 8.0 10^3/MM^3 10*3/mm3 4.6-10.2 Lab Report: CBC W/DIFF, Comp. Metabolic Panel, Qual [facility] [place] Chemistry sodium, serum 139 mmol/L 028-468 9771/10/21 carbon dioxide, venous blood 33.5 mmol/L 21.0-32 [...] Report: CBC W/DIFF, Comp. Metabolic Panel, Qual [facility] [place] - Hematology neutrophils as percent of blood [...] PANEL - Chemistry cholesterol, serum 192 mg/dL 309-114 8147/02/20 HDL cholesterol, serum 31 mg/dL > OR [...] 11 .0-15.0 platelet count 218 THOUSAND/UL 10*3/mm3 461-372 1291/02/20 mean platelet volume 9.7 fL 7.5-12.5 Lab Report: Chlamydia/GC APTIMA/20205 - Lab chlamydia DNA probe NOT DETECTED NOT DETECTED Lab Report: Chlamydia/GC APTIMA/24978 - Microbiology Neisseria gonorrhoeae DNA probe NOT DETECTED NO T DETECTED Lab Report: Comp. Metabolic Panel, Thyro id Stimulating Hormone (L), Eryt ... - Chemistry sodium, serum 137 mmol/L 940-979 2675/05/27 carbon dioxide, venous blood 29.1 mmol/L 21.0-32 [...] Negative Encounters Code Encounter Date Provider Facility CPT-38291 Level 3 Est. Patient 11:29:55 CDT Checo Conklin MD [facility] CPT-87784 Level 4 Est. 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 Patient 16:06:48 [employer] HEAD Checo Conklin MD [facility] CPT-25192 Level 3 Est. Patient 09:11:49 CDT Efren almendarez [facility] CPT-86869 Level 2 Est. Patient 19:53:27 CDT Tanner hill MD [facility] CPT-79566 Level 3 Est. Patient 09:15:34 CDT Efren almendarez [facility] CPT-00835 Level 3 Est. Patient 11:28:51 TR[employer]AYER HEAD Efren almendarez [facility] CPT-99073 Level 4 Est. Patient 13:55:46 TRACK LAYER HEAD Checo Conklin MD [facility] CPT-14607 Level 4 Est. Patient 17:10:53 CDT Checo Conklin MD [facility] CPT-57154 Level 3 Est. Patient 15:56:22 CDT Checo Conklin MD [facility] CPT-28757 Level 3 Est. Patient 15:29:07 CDT Checo Conklin MD [facility] CPT-70703 Level 3 Est. Patient 14:38:41 CDT Checo Conklin MD [facility] CPT-88933 Level 3 Est. Patient 15:22:03 TRACK LAYER HEAD Thomas reynolds DO [facility] CPT-32173 Level 3 Est. Patient 13:34:17 TRACK LAYER HEAD Checo Conklin MD [facility] CPT-75880 Level 3 Est. Patient 12:29:32 CDT Dangelo arroyo MD [facility] CPT-79680 Level 3 Est. Patient 16:53:02 CDT Checo Conklin MD [facility] CPT-78177 Level 3 Est. Patient 16:37:13 CDT Checo Conklin MD [facility] CPT-27908 Level 3 Est. Patient 16:16:59 CDT Paul Hamlin MD [facility] CPT-56776 Level 3 Est. Patient 14:20:13 CDT Dangelo arroyo MD [facility] CPT-02370 Level 4 Est. Patient 11:29:33 CDT Checo Conklin MD [facility] CPT-98938 Level 3 Est. Patient 17:08:31 CDT Checo Conklin MD [facility] CPT-09757 Level 3 Est. Patient 16:50:42 TRACK LAYER HEAD Checo Conklin MD [facility] CPT-12047 Level 4 Est. Patient 09:26:08 TRACK LAYER HEAD Checo Conklin MD [facility] CPT-50252 Level 3 Est. Patient 11:37:10 CDT Checo Conklni MD [facility] CPT-42485 Level 4 Est. Patient 14:07:38 CDT Checo Conklin MD [facility] CPT-73856 Level 3 Est. Patient 09:54:41 CDT Checo Conklin MD [facility] CPT-46405 Level 3 Est. Patient 11:10:54 CDT Paul Hamlin MD [facility] CPT-56384 Level 3 Est. Patient 14:16:56 TRACK LAYER HEAD Checo Conklin MD [facility] CPT-99360 Level 3 Est. Patient 11:04:11 TRACK LAYER HEAD Checo Conklin MD [facility] CPT-21192 Level 3 Est. Patient 17:09:26 CDT Dangelo arroyo MD [facility] CPT-02332 Level 3 Est. Patient 16:54:37 CDT Checo Conklin MD [facility] Procedures Code Procedure Name Date Entry Date Standard Desc ription CPT-46232 UA w micro - LAB USE ONLY 17:06:46 CDT 2015 CPT-94156 [facility] Qual - LAB USE ONLY 17:06:46 CDT 05/06 CPT-66655 CMP - LAB USE ONLY 17:06:46 CDT CPT-08745 CBC with Diff - LAB USE ONLY 17:06:45 CDT 2 CPT-17457 Venipuncture Draw Fee 17:06:45 CDT CPT-LR Lesion Removal 19:53:27 CDT CPT-OV Office Visit 11:31:28 CDT CPT-60332 Tubersol 09:39:29 CDT CPT-J2550 Phenergan 25 mg (Promethazine) 13:59:02 TR[employer]ER HEAD CPT-J1885 Toradol 60 mg (Ketorolac) 13:59:02 TRACK LAYER HEAD 2012
--- OUTSIDE RECORDS SUMMARY | 2019-09-29 01:43 | XMS REPORT | Clinical Summary ---
Author Author Admin, Bethany Gonzales Organization [employer] Address Unknown Phone Unavailable Allergies, Adverse Reactions, [...] Abdominal pain, generalized 789.07 Active Efren Medel BOOK SEWER Abdominal pain, generalized Nausea 787.02 Active Efren [...] outh daily, for acid reflux PANTOPRAZOLE SODIUM 53009429668 No Longer Activ e Corry Méndez TOWEL SORTER Active FLAGYL 500 MG ORAL TABLET 1 tablet by mouth bid 08/29 METRONIDAZOLE 31031608799 No Longer Active Corry Honey TOWEL SORTER Active CLARITHROMYCIN 500 MG ORAL TABLET 1 tab po BID x 14 days CLARITHROMYCIN 45500226964 No Longer Active Corrymary Méndez TOWEL SORTER Active AMOXICILLIN 500 MG ORAL CAPSULE 2 po BID x 14 days for H. Pylori AMOXICILLIN 09104476734 No Longer Active Corry Méndez TOWEL SORTER Active PAROXETINE HCL 20 MG ORAL TABLET 1.5 po qd PAR OXETINE HCL 78559164355 Active Checo Conklin MD Active FLUTICASONE PROPIONATE 50 MCG/ACT NASAL SUSPENSION 2 s prays/nostril qd PRN Congestion/Allergies FLUTICASONE PROPIONATE 5652840787 9 No Longer Active Checo Conklin MD Active AMOXICILLIN 500 MG ORAL CAPSULE 2 po BID x 10 days 201 01/15/27 AMOXICILLIN 94648306903 No Longer Active Checo Conklin MD Activ e MIRALAX ORAL POWDER 8.5 to 17g po qd PRN Constipation POLYETHYLENE GLYCOL 3350 79637196210 Active Checo Conklin MD Active CLARITIN 10 MG ORAL TABLET 1 tablet by mouth daily as needed for allergies LORATADINE 97126709512 No Longer Active Checo Ortiz MD Active BACTRIM DS 800-160 MG ORAL TABLET 1 tab by mouth twice daily 201 12/19/26 TRIMETHOPRIM-SULFAMETHOXAZOLE 85155136754 No Longer Active Ragini Carrillo MD Active DIFLUCAN 150 MG ORAL TABLET 1 tablet by mouth qod 2015 FLUCONAZOLE 49638086618 No Longer Active Efren Medel BOOK SEWER Act mike AZITHROMYCIN 250 MG ORAL TABLET 2 po qd x 1 day, then 1 po q d x 4 days AZITHROMYCIN 71722656173 No Longer Active Efren flores BOOK SEWER Active FLAGYL 500 MG ORAL TABLET 1 tablet by mouth bid 04/13 METRONIDAZOLE 56666401788 No Longer Active Checo Conklin MD Acti ve FOCALIN XR 10 MG ORAL CAPSULE EXTENDED RELEASE 24 HOUR 1 po q a.m. DEXMETHYLPHENIDATE HCL 68436688145 Active Checo Conklin MD Active MAGNESIUM CITRATE 1.745 GM/30ML ORAL SOLUTION 150ml po BID P RN Constipation MAGNESIUM CITRATE 46178423815 No Longer Active Checo Conklin MD Active BACTROBAN 2 % EXTERNAL CREAM Apply to affected area BID for up to 10 days MUPIROCIN CALCIUM 82905397225 No Longer Active Checo Conklin MD Active HYDROCODONE-ACETAMINOPHEN 5-325 MG ORAL TABLET 1 tab b y mouth every 6 hours as needed HYDROCODONE-ACETAMINOPHEN 97935567797 No Longer Active Checo Conklin MD Active IBUPROFEN 800 MG ORAL TABLET 1 tab every 8 hours with food 03/20 IBUPROFEN 85105483883 No Longer Active Checo Conklin MD Active DIFLUCAN 150 MG ORAL TABLET 1 tablet by mouth if neede d, hold until symptoms start FLUCONAZOLE 70592470856 No Longer Active Checo Conklin MD Active BACTRIM DS 800-160 MG ORAL TABLET 1 tab by mouth twice daily 201 11/23/03 TRIMETHOPRIM-SULFAMETHOXAZOLE 22052520978 No Longer Active K bernice Méndez LPN Active HYDROCODONE-ACETAMINOPHEN 5-325 MG ORAL TABLET 0.5 to 1 tab by mouth every 6 hours as needed HYDROCODONE-ACETAMINOPHEN 75759049649 No Longer Active Checo Conklin MD Active ONDANSETRON 8 MG ORAL TABLET DISINTEGRATING place one tablet on tongue and allow to dissolve every 6 hours as needed for vomitting ONDANSETRON 68416060559 No Longer Active Checo Conklin MD Activ e COMPRO 25 MG RECTAL SUPPOSITORY insert or apply one garza ppository rectally as directed every 12 hours as needed for nausea PROCHLORPERAZINE 08035278942 No Longer Active Checo Conklin MD A ctive SUMATRIPTAN SUCCINATE 100 MG ORAL TABLET Take one PRN for migran e SUMATRIPTAN SUCCINATE 37367385042 No Longer Active Checo Conklin MD Active TRAVEL SICKNESS 25 MG ORAL TABLET CHEWABLE chew and sw allow one tablet every 6 hours as needed MECLIZINE HCL 70584834989 No Longer A ctive Checo Conklin MD Active BUPROPION HCL ER (SR) 100 MG ORAL TABLET EXTENDED RELE ASE 12 HOUR take one tablet by mouth one time daily for one week then take 1 two times daily BUPROPION HCL 85943646907 No Longer Active Checo gallagher MD Active TERBINAFINE HCL 250 MG ORAL TABLET take one table PO one time da moises TERBINAFINE HCL 05192288366 No Longer Active Checo Conklin MD Active METOCLOPRAMIDE HCL 10 MG ORAL TABLET take one PO tid PRN nausea METOCLOPRAMIDE HCL 42160026500 No Longer Active Checo Conklin MD Active DICLOFENAC SODIUM 75 MG ORAL TABLET DELAYED RELEASE 1 tablet by mouth twice daily PRN Knee pain DICLOFENAC SODIUM 69645772224 No Longer Active Checo Conklin MD Active LAMISIL 250 MG ORAL TABLET 1 po qd TERBINAFI NE HCL 66229331672 No Longer Active Checo Conklin MD Active REGLAN 10 MG ORAL TABLET 1 po TID PRN Nausea 3 METOCLOPRAMIDE HCL 68002121891 No Longer Active Checo Conklin MD Active CELEXA 20 MG ORAL TABLET 1 tablet by mouth daily 09/26 CITALOPRAM HYDROBROMIDE 00643413320 No Longer Active Checo Conklin MD Active AZITHROMYCIN 250 MG ORAL TABLET 2 po qd x 1 day, then 1 po q d x 4 days AZITHROMYCIN 49254219908 No Longer Active Checo Ortiz MD Active HYDROCODONE-ACETAMINOPHEN 5-325 MG ORAL TABLET 1 po q 6hr PRN Pa in HYDROCODONE-ACETAMINOPHEN 31629699825 No Longer Active Lenora Conklin MD Active PHENAZOPYRIDINE HCL 200 MG ORAL TABLET take 1 tab po TID for bladder pain PHENAZOPYRIDINE HCL 65163139002 No Longer Active Joe Conklin MD Active CIPRO 500 MG ORAL TABLET 1 tablet by mouth twice daily CIPROFLOXACIN HCL 74552257908 No Longer Active Dangelo Rangel MD Active HYDROCODONE-ACETAMINOPHEN 5-325 MG ORAL TABLET 1/2 to 1 po q 4 hours prn cough HYDROCODONE-ACETAMINOPHEN 06208476028 No Longer Activ candy Rangel MD Active BACTRIM DS 800-160 MG ORAL TABLET 1 po BID x 7 days 29/04/10 SULFAMETHOXAZOLE-TRIMETHOPRIM 83169663839 No Longer Active Checo Conklin MD Active PREDNISONE 20 MG ORAL TABLET 2 tabs daily for 3 days, 1 tab daily for 3 days, 1/2 tab daily for 2 days PREDNISONE 44921526896 No Longer Active Checo Conklin MD Active TRIAMCINOLONE ACETONIDE 0.1 % EXTERNAL OINTMENT Apply to affected areas TID for up to 2 weeks TRIAMCINOLONE ACETONIDE 13502908271 No Longer Active Checo Conklin MD Active CEFDINIR 300 MG ORAL CAPSULE by mouth twice a day 2013 CEFDINIR 58710547562 No Longer Active Dangelo Rangel MD Acti ve BUPROPION HCL ER (SMOKING DET) 150 MG ORAL TABLET EXTE NDED RELEASE 12 HOUR 1 a day for 1 week then 1 twice a day BUPROPION HCL (SMOKING DETER) 67336658665 No Longer Active Checo Conklin MD Active SIMVASTATIN 20 MG ORAL TABLET 1 po qd SIMVASTAT IN 78325972250 Active Checo Conklin MD Active CHANTIX STARTING MONTH KARTHIK 0.5 MG X 11 & 1 MG X 42 ORA L TABLET 0.5mg daily for 3 days, then 0.5mg BID for 4 days, then 1mg BID VARENICLINE TARTRATE 00238208870 No Longer Active Checo Conklin MD Activ e XANAX 0.5 MG ORAL TABLET 1 po BID PRN anxiety A LPRAZOLAM 03585092170 Active Checo Conklin MD Active CONCERTA 18 MG ORAL TABLET EXTENDED RELEASE 1 po q a.m. METHYLPHENIDATE HCL 61052103970 No Longer Active Checo Conklin MD Active AMBIEN 5 MG ORAL TABLET 1 po qHS PRN Insomnia Z OLPIDEM TARTRATE 97042461172 Active Checo Conklin MD Active TRAZODONE HCL 100 MG ORAL TABLET 0.5 to 1 po qHS PRN Insomnia 20 30/07/08 TRAZODONE HCL 81485950585 No Longer Active Checo Conklin MD Active FIORICET 325-50-40 MG TAB 1 tablet by mouth four times daily as needed [id number] 88341603039 No Longer Active Checo Conklin MD Active PHENERGAN CREAM* 25mg applied to wrist q6hr PRN Nausea PHENERGAN CREAM* No Longer Active Checo Conklin MD A ctive FLONASE 50 MCG/ACT NASAL SUSPENSION 1 spray each nostril am and hs FLUTICASONE PROPIONATE 52270511275 No Longer Active Checo Conklin MD Active ANTIPYRINE-BENZOCAINE 5.4-1.4 % OTIC SOLUTION 1-2 drops in affec yohannes ear BENZOCAINE-ANTIPYRINE 35434362202 No Longer Active Checo Conklin MD Active CEFDINIR 300 MG ORAL CAPSULE 1 po bid CEFDINIR 05351904455 No Longer Active Checo Conklin MD Active PREDNISONE 20 MG ORAL TABLET 2 tabs daily for 3 days, 1 tab daily for 3 days, 1/2 tab daily for 2 days PREDNISONE 01772043966 No Longer Active Checo Conklin MD Active AZITHROMYCIN 250 MG ORAL TABLET 2 po qd x 1 day, then 1 po q d x 4 days AZITHROMYCIN 86570637194 No Longer Active Checo Ortiz MD Active PREDNISONE 20 MG ORAL TABLET 2 tabs daily for 3 days, 1 tab daily for 3 days, 1/2 tab daily for 2 days PREDNISONE 61615485894 No Longer Active Checo Conklin MD Active ZITHROMAX Z-KARTHIK 250 MG ORAL TABLET 2 today, then 1 daily for 4 d ays AZITHROMYCIN 17951322178 No Longer Active Paul Hamlin MD Active FOCALIN XR 10 MG ORAL CAPSULE EXTENDED RELEASE 24 HOUR 1 po q a. m. DEXMETHYLPHENIDATE HCL 85646970483 No Longer Active Paul Hamlin MD Active PERCOCET 10-325 MG ORAL TABLET 1 tablet every 6 hours as needed for pain OXYCODONE-ACETAMINOPHEN 44554358070 No Longer Active Paul Hamlin MD Active LORTAB 5-500 MG ORAL TABLET 1/2 to 1 tablet by mouth e very 4 hours as needed for pain HYDROCODONE-ACETAMINOPHEN 40367201192 No Longer Active Checo Conklin MD Active FOCALIN XR 15 MG ORAL CAPSULE EXTENDED RELEASE 24 HOUR 1 po q a. m. DEXMETHYLPHENIDATE HCL 99672720573 No Longer Active Checo Conklin MD Active ZOFRAN ODT 4 MG ORAL TABLET DISINTEGRATING 1 po q6hr PRN Nausea ONDANSETRON 67407175152 No Longer Active Checo Conklin MD Active PERCOCET 5-325 MG ORAL TABLET 1 tablet by mouth every 6 hour s as needed OXYCODONE-ACETAMINOPHEN 48659674180 No Longer Active Checo Conklin MD Active PYRIDIUM 200 MG ORAL TABLET take 1 tab po TID prn urinary pain. PHENAZOPYRIDINE HCL 41287383112 No Longer Active Checo Joshua Active FLUCONAZOLE 150 MG ORAL TABLET take 1 tab po qday once FLUCONAZOLE 19459837289 No Longer Active Dangelo Rangel MD Acti ve CIPRO 500 MG ORAL TABLET 1 tablet by mouth twice daily CIPROFLOXACIN HCL 89953311933 No Longer Active Dangelo Rangel MD Active PYRIDIUM 200 MG ORAL TABLET take 1 tab po TID prn urinary pain. PYRIDIUM 200 MG ORAL TABLET 8352449 PHENAZOPYRIDINE HCL Inactive PERCOCET 5-325 MG ORAL TABLET 1 tablet by mouth every 6 hour s as needed PERCOCET 5-325 MG ORAL TABLET 2667265 OXYCODONE-ACETAMINOPHEN Inactive ZOFRAN ODT 4 MG ORAL TABLET DISINTEGRATING 1 po q6hr PRN Nausea ZOFRAN ODT 4 MG ORAL TABLET DISINTEGRATING 943361 ONDAN SETRON Inactive FOCALIN XR 15 MG ORAL CAPSULE EXTENDED RELEASE 24 HOUR 1 po q a. m. FOCALIN XR 15 MG ORAL CAPSULE EXTENDED RELEASE 24 HOUR DEXMETHYLPHENIDATE HCL Inactive LORTAB 5-500 MG ORAL TABLET 1/2 to 1 tablet by mouth e very 4 hours as needed for pain LORTAB 5-500 MG ORAL TABLET 601416 HYDROCODONE-ACETAMINOPHEN Inactive PERCOCET 10-325 MG ORAL TABLET 1 tablet every 6 hours as needed for pain PERCOCET 10-325 MG ORAL TABLET 9322315 OXYCODONE-ACETAMI NOPHEN Inactive FOCALIN XR 10 MG ORAL CAPSULE EXTENDED RELEASE 24 HOUR 1 po q a. m. FOCALIN XR 10 MG ORAL CAPSULE EXTENDED RELEASE 24 HOUR DEXMETHYLPHENIDATE HCL Inactive CEFDINIR 300 MG ORAL CAPSULE 1 po bid CEFDINI R 300 MG ORAL CAPSULE 854693 CEFDINIR Inactive ANTIPYRINE-BENZOCAINE 5.4-1.4 % OTIC SOLUTION 1-2 drops in affec yohannes ear ANTIPYRINE-BENZOCAINE 5.4-1.4 % OTIC SOLUTION 564500 BENZOCAINE-ANTIPYRINE Inactive FLONASE 50 MCG/ACT NASAL SUSPENSION 1 spray each nostril am and hs FLONASE 50 MCG/ACT NASAL SUSPENSION 8804743 FLUTICASONE PROPIONATE I nactive PHENERGAN CREAM* 25mg applied to wrist q6hr PRN Nausea PHENERGAN CREAM* Inactive FIORICET 325-50-40 MG TAB 1 tablet by mouth four times daily as needed FIORICET 325-50-40 MG TAB ACETAMINOPHEN-C AFF-BUTALBITAL Inactive TRAZODONE HCL 100 MG ORAL TABLET 0.5 to 1 po qHS PRN Insomnia 20 30/07/08 TRAZODONE HCL 100 MG ORAL TABLET 409309 TRAZODONE HCL Inactive CONCERTA 18 MG ORAL [...] cough HYDROCODONE-ACETAMINOPHEN 5-325 MG ORAL TABLET 8 43157 HYDROCODONE-ACETAMINOPHEN Inactive PHENAZOPYRIDINE HCL 200 MG ORAL TABLET take 1 tab po TID for bladder pain PHENAZOPYRIDINE HCL 200 MG ORAL TABLET 4260854 PHENAZOPYRIDINE HCL Inactive HYDROCODONE-ACETAMINOPHEN 5-325 MG ORAL TABLET 1 po q 6hr PRN Pa in HYDROCODONE-ACETAMINOPHEN 5-325 MG ORAL TABLET 338043 HYDROCODONE-ACETAMINOPHEN Inactive CELEXA 20 MG ORAL TABLET 1 tablet by mouth daily 09/26 CELEXA 20 MG ORAL TABLET 238651 CITALOPRAM HYDROBROMIDE Inactive REGLAN 10 MG ORAL TABLET 1 po TID PRN Nausea 3 REGLAN 10 MG ORAL TABLET 236791 METOCLOPRAMIDE HCL Inactive LAMISIL 250 MG ORAL TABLET 1 po qd L AMISIL 250 MG ORAL TABLET 722347 TERBINAFINE HCL Inactive DICLOFENAC SODIUM 75 MG ORAL TABLET DELAYED RELEASE 1 tablet by mouth twice daily PRN Knee pain DICLOFENAC SODIUM 75 MG ORAL TABLET DELAYED RELEASE 613184 DICLOFENAC SODIUM Inactive METOCLOPRAMIDE HCL 10 MG ORAL TABLET take one PO tid PRN nausea METOCLOPRAMIDE HCL 10 MG ORAL TABLET 607916 METOCLOPRAM ZACH HCL Inactive TERBINAFINE HCL 250 MG ORAL TABLET take one table PO one time da moises TERBINAFINE HCL 250 MG ORAL TABLET 510123 TERBINAFINE H CL Inactive BUPROPION HCL ER [...] SICKNESS 25 M G ORAL TABLET CHEWABLE 357425 MECLIZINE HCL Inactive SUMATRIPTAN SUCCINATE 100 MG ORAL TABLET Take one PRN for migran e SUMATRIPTAN SUCCINATE 100 MG ORAL TABLET 583812 SUMATRIPTAN SUCCINATE Inactive COMPRO 25 MG RECTAL SUPPOSITORY insert or apply one garza ppository rectally as directed every 12 hours as needed for nausea COMPRO 25 MG RECTAL SUPPOSITORY 180120 PROCHLORPERAZINE Inactive ONDANSETRON 8 MG ORAL TABLET DISINTEGRATING place one tablet on tongue and allow to dissolve every 6 hours as needed for vomitting ONDANSETRON 8 MG ORAL TABLET DISINTEGRATING 793019 ONDANSETRON Inactive HYDROCODONE-ACETAMINOPHEN 5-325 MG ORAL TABLET 0.5 to 1 tab by mouth every 6 hours as needed HYDROCODONE-ACETAMIN OPHEN 5-325 MG ORAL TABLET 659563 HYDROCODONE-ACETAMINOPHEN Inactive BACTRIM DS 800-160 MG ORAL TABLET 1 tab by mouth twice daily 201 11/23/03 BACTRIM DS 800-160 MG ORAL TABLET 985521 TRIMETHOPRIM-SULFAMETHOXAZOLE Inactive DIFLUCAN 150 MG ORAL TABLET 1 tablet by mouth if neede d, hold until symptoms start DIFLUCAN 150 MG ORAL TABLET 683738 FLUCONAZ OLE Inactive IBUPROFEN 800 MG ORAL TABLET 1 tab every 8 hours with food 03/20 IBUPROFEN 800 MG ORAL TABLET 427856 IBUPROFEN Krupa ctive HYDROCODONE-ACETAMINOPHEN 5-325 MG ORAL TABLET 1 tab b y mouth every 6 hours as needed HYDROCODONE-ACETAMINOPHEN 5-325 MG ORAL TABLET 846420 HYDROCODONE-ACETAMINOPHEN Inactive BACTROBAN 2 % EXTERNAL CREAM Apply to affected area BID for up to 10 days BACTROBAN 2 % EXTERNAL CREAM 243551 MUPIROCIN CA LCIUM Inactive MAGNESIUM CITRATE 1.745 GM/30ML ORAL SOLUTION 150ml po BID P RN Constipation MAGNESIUM CITRATE 1.745 GM/30ML ORAL SOLUTION 10 94780 MAGNESIUM CITRATE Inactive DIFLUCAN 150 MG ORAL TABLET 1 tablet by mouth qod 2015 DIFLUCAN 150 MG ORAL TABLET 155137 FLUCONAZOLE Inactive BACTRIM DS 800-160 MG ORAL TABLET 1 tab by mouth twice daily 201 12/19/26 BACTRIM DS 800-160 MG ORAL TABLET 125427 TRIMETHOPRIM-SULFAMETHOXAZOLE Inactive CLARITIN 10 MG ORAL TABLET 1 tablet by mouth daily as needed for allergies CLARITIN 10 MG ORAL TABLET 532709 LORATADINE I nactive FLUTICASONE PROPIONATE 50 MCG/ACT NASAL SUSPENSION 2 s prays/nostril qd PRN Congestion/Allergies FLUTICASONE PROPION ATE 50 MCG/ACT NASAL SUSPENSION 3059345 FLUTICASONE PROPIONATE Inactive CIPRO 500 MG ORAL TABLET 1 tablet by mouth twice daily CIPRO 500 MG ORAL TABLET 097424 CIPROFLOXACIN HCL Inactive FLUCONAZOLE 150 MG ORAL TABLET take 1 tab po qday once FLUCONAZOLE 150 MG ORAL TABLET 697296 FLUCONAZOLE Inactive ZITHROMAX Z-KARTHIK 250 MG ORAL TABLET 2 today, then 1 daily for 4 d ays ZITHROMAX Z-KARTHIK 250 MG ORAL TABLET 965936 AZITHROMYCIN Inactive PREDNISONE 20 MG ORAL TABLET 2 tabs daily for 3 days, 1 tab daily for 3 days, 1/2 tab daily for 2 days PREDNISONE 20 MG ORAL T ABLET 848877 PREDNISONE Inactive AZITHROMYCIN 250 MG ORAL TABLET 2 po qd x 1 day, then 1 po q d x 4 days AZITHROMYCIN 250 MG ORAL TABLET 527010 AZITHROMY SPARKLE Inactive PREDNISONE 20 MG ORAL TABLET 2 tabs daily for 3 days, 1 tab daily for 3 days, 1/2 tab daily for 2 days PREDNISONE 20 MG ORAL TABLET 271023 PREDNISONE Inactive CEFDINIR 300 MG ORAL CAPSULE by mouth twice a day 2013 CEFDINIR 300 MG ORAL CAPSULE 017975 CEFDINIR Inactive TRIAMCINOLONE ACETONIDE 0.1 % EXTERNAL OINTMENT Apply to affected areas TID for up to 2 weeks TRIAMCINOLONE ACETON ZACH 0.1 % EXTERNAL OINTMENT 6114648 TRIAMCINOLONE ACETONIDE Inactive PREDNISONE 20 MG ORAL TABLET 2 tabs daily for 3 days, 1 tab daily for 3 days, 1/2 tab daily for 2 days PREDNISONE 20 MG ORAL T ABLET 792581 PREDNISONE Inactive BACTRIM DS 800-160 MG ORAL TABLET 1 po BID x 7 days 29/04/10 BACTRIM DS 800-160 MG ORAL TABLET 331124 SULFAMETHOXAZOLE-TRIMETHOP RIM Inactive CIPRO 500 MG ORAL TABLET 1 tablet by mouth twice daily CIPRO 500 MG ORAL TABLET 390771 CIPROFLOXACIN HCL Inactive AZITHROMYCIN 250 MG ORAL TABLET 2 po qd x 1 day, then 1 po q d x 4 days AZITHROMYCIN 250 MG ORAL TABLET 671662 AZITHROMY SPARKLE Inactive FLAGYL 500 MG ORAL TABLET 1 tablet by mouth bid 04/13 FLAGYL 500 MG ORAL TABLET 148811 METRONIDAZOLE Inactive AZITHROMYCIN 250 MG ORAL TABLET 2 po qd x 1 day, then 1 po q d x 4 days AZITHROMYCIN 250 MG ORAL TABLET 940579 AZITHROMY SPARKLE Inactive AMOXICILLIN 500 MG ORAL CAPSULE 2 po BID x 10 days 01/15/27 AMOXICILLIN 500 MG ORAL CAPSULE 538792 AMOXICILLIN Inactive AMOXICILLIN 500 MG ORAL CAPSULE 2 po BID x 14 days for H. Pylori AMOXICILLIN 500 MG ORAL CAPSULE 872046 AMOXICILLIN Inactive CLARITHROMYCIN 500 MG ORAL TABLET 1 tab po BID x 14 days CLARITHROMYCIN 500 MG ORAL TABLET 662403 CLARITHROMYCIN Inacti ve FLAGYL 500 MG ORAL TABLET 1 tablet by mouth bid 08/29 FLAGYL 500 MG ORAL TABLET 909982 METRONIDAZOLE Inactive PROTONIX 40 MG ORAL TABLET DELAYED RELEASE 1 pill by m outh daily, for acid reflux PROTONIX 40 MG ORAL TABLET DELAYED RELEAS E 443766 PANTOPRAZOLE SODIUM Inactive Immunizations Vaccine Administration Date [...] PANEL - Chemistry cholesterol, serum 192 mg/dL 608-414 8541/02/20 HDL cholesterol, serum 31 mg/dL > OR [...] 11 .0-15.0 platelet count 218 THOUSAND/UL 10*3/mm3 439-984 2377/02/20 mean platelet volume 9.7 fL 7.5-12.5 Lab Report: Comp. Metabolic Panel, Eryth rocyte Sed Rate, UADIP W/MICRO, ... - Chemistry protein, total urine random Negative mg/dL Negative sodium, serum 139 mmol/L 782-170 0523/11/28 carbon dioxide, venous blood 26.0 mmol/L 21.0-32 [...] Negative Encounters Code Encounter Date Provider Facility CPT-24387 Level 3 Est. Patient 11:24:55 CHEMIST INORGANIC Efren almendarez [facility] [place] CPT-37162 Level 3 Est. Patient 13:05:44 CDT Paul Hamlin MD [facility] CPT-57888 Level 3 Est. Patient 11:29:55 CDT Checo Conklin MD [facility] CPT-52463 Level 4 Est. Patient 11:08:12 CHEMIST INORGANIC Checo Conklin MD [facility] CPT-79140 Level 4 Est. Patient 16:06:48 CHEMIST INORGANIC Checo Conklin MD [facility] CPT-42158 Level 3 Est. Patient 09:11:49 CDT Efren almendarez [facility] [place] [facility] CPT-85028 Level 2 Est. Patient 19:53:27 CDT Tanner hill MD [facility] CPT-51349 Level 3 Est. Patient 09:15:34 CDT Efren almendarez [facility] CPT-62552 Level 3 Est. Patient 11:28:51 CHEMIST INORGANIC Efren almendarez [facility] CPT-62544 Level 4 Est. Patient 13:55:46 CHEMIST INORGANIC Checo Conklin MD [facility] CPT-12900 Level 4 Est. Patient 17:10:53 CDT Checo Conklin MD [facility] CPT-58535 Level 3 Est. Patient 15:56:22 CDT Checo Conklin MD [facility] CPT-80277 Level 3 Est. Patient 15:29:07 CDT Checo Conklin MD [facility] CPT-37950 Level 3 Est. Patient 14:38:41 CDT Checo Conklin MD [facility] CPT-88311 Level 3 Est. Patient 15:22:03 CHEMIST INORGANIC Thomas reynolds DO [facility] CPT-48318 Level 3 Est. Patient 13:34:17 CHEMIST INORGANIC Checo Conklin MD [facility] CPT-22090 Level 3 Est. Patient 12:29:32 CDT Dangelo arroyo MD [facility] CPT-24765 Level 3 Est. Patient 16:53:02 CDT Checo Conklin MD [facility] CPT-68330 Level 3 Est. Patient 16:37:13 CDT Checo Conklin MD [facility] CPT-19393 Level 3 Est. Patient 16:16:59 CDT Paul Hamlin MD [facility] CPT-09567 Level 3 Est. Patient 14:20:13 CDT Dangelo arroyo MD [facility] CPT-07745 Level 4 Est. Patient 11:29:33 CDT Checo Conklin MD [facility] CPT-67606 Level 3 Est. Patient 17:08:31 CDT Checo Conklin MD [facility] CPT-06525 Level 3 Est. Patient 16:50:42 CHEMIST INORGANIC Checo Conklin MD [facility] CPT-90153 Level 4 Est. Patient 09:26:08 CHEMIST INORGANIC Checo Conklin MD [facility] CPT-73000 Level 3 Est. Patient 11:37:10 CDT Checo Conklin MD [facility] CPT-41817 Level 4 Est. Patient 14:07:38 CDT Checo Conklin MD [facility] CPT-85489 Level 3 Est. Patient 09:54:41 CDT Checo Conklin MD [facility] CPT-09659 Level 3 Est. Patient 11:10:54 CDT Paul Hamlin MD [facility] CPT-06550 Level 3 Est. Patient 14:16:56 CHEMIST INORGANIC Checo Conklin MD [facility] CPT-02465 Level 3 Est. Patient 11:04:11 CHEMIST INORGANIC Checo Conklin MD [facility] CPT-17029 Level 3 Est. Patient 17:09:26 CDT Dangelo arroyo MD [facility] CPT-91095 Level 3 Est. Patient 16:54:37 CDT Checo Conklin MD [facility] Procedures Code Procedure Name Date Entry Date Standard Desc ription CPT-50484 Abd compl w upright - XRAY USE ONLY 1 1:36:54 CHEMIST INORGANIC CPT-61798 UA w micro - LAB USE ONLY 17:06:46 CDT 2015 CPT-12337 BHCG Qual - LAB USE ONLY 17:06:46 CDT 05/06 CPT-65141 CMP - LAB USE ONLY 17:06:46 CDT CPT-65205 CBC with Diff - LAB USE ONLY 17:06:45 CDT 2 CPT-50671 Venipuncture Draw Fee 17:06:45 CDT CPT-LR Lesion Removal 19:53:27 CDT CPT-OV Office Visit 11:31:28 CDT CPT-09504 Tubersol 09:39:29 CDT CPT-J2550 Phenergan 25 mg (Promethazine) 13:59:02 CHEMIST INORGANIC CPT-J1885 Toradol 60 mg (Ketorolac) 13:59:02 CHEMIST INORGANIC 2012
--- OUTSIDE RECORDS SUMMARY | 2019-09-29 01:43 | XMS REPORT | Clinical Summary ---
Author Author Admin, Bethany Ayala [facility] Address Unknown Phone Unavailable Allergies, Adverse Reactions, [...] Inactive Checo Conklin MD Insomnia ICD-780.52 Inactive Chceo Joshua Breast mass, right ICD-611.72 Inactive Checo [...] TABS 1.5 po qd PAROX ETINE HCL 02870426052 Active Checo Conklin MD Active FLUTICASONE PROPIONATE 50 MCG/ACT NASAL SUSP 2 sprays/ nostril qd PRN Congestion/Allergies FLUTICASONE PROPIONATE 1400514046 5 No Longer Active Checo Conklin MD Active AMOXICILLIN 500 MG ORAL CAPS 2 po BID x 10 days 09/12 AMOXICILLIN 21848633708 No Longer Active Checo Conklin MD Activ e MIRALAX ORAL POWD 8.5 to 17g po qd PRN Constipation POLYETHYLENE GLYCOL 3350 48131559423 Active Checo Conklin MD Active CLARITIN 10 MG TAB 1 tablet by mouth daily as needed for allergi es LORATADINE 87011877414 No Longer Active Checo Conklin MD Active BACTRIM DS 800-160 MG TAB 1 tab by mouth twice daily 2 TRIMETHOPRIM-SULFAMETHOXAZOLE 60920952847 No Longer Active Tanner Carrillo MD Active DIFLUCAN 150 MG TAB 1 tablet by mouth qod FLUCO NAZOLE 16106133825 No Longer Active Efren Medel APRN Active AZITHROMYCIN 250 MG TABS 2 po qd x 1 day, then 1 po qd x 4 days AZITHROMYCIN 70291632505 No Longer Active Jillina Frajoel [employer]ATOR Active FLAGYL 500 MG TAB 1 tablet by mouth bid METRONI DAZOLE 36220370456 No Longer Active Checo Conklin MD Active FOCALIN XR 10 MG ORAL [id number] 1 po q a.m. DEX METHYLPHENIDATE HCL 95209202151 Active Checo Conklin MD Active MAGNESIUM CITRATE 1.745 GM/30ML ORAL SOLN 150ml po BID PRN C onstipation MAGNESIUM CITRATE 55213248014 No Longer Active Checo Conklin MD Active BACTROBAN 2 % CREAM Apply to affected area BID for up to 10 days MUPIROCIN CALCIUM 05800218904 No Longer Active Checo Conklin MD Active HYDROCODONE-ACETAMINOPHEN 5-325 MG TABS 1 tab by mouth every 6 hours as needed HYDROCODONE-ACETAMINOPHEN 76286759531 No Longer Activ e Checo Conklin MD Active IBUPROFEN 800 MG TABS 1 tab every 8 hours with food 20 31/03/21 IBUPROFEN 38968309296 No Longer Active Checo Conklin MD Activ e DIFLUCAN 150 MG TAB 1 tablet by mouth if needed, hold until symptoms start FLUCONAZOLE 21596643192 No Longer Active Checo Ortiz MD Active BACTRIM DS 800-160 MG TAB 1 tab by mouth twice daily 2 TRIMETHOPRIM-SULFAMETHOXAZOLE 23224448401 No Longer Active Corry leong LPN Active HYDROCODONE-ACETAMINOPHEN 5-325 MG TABS 0.5 to 1 tab b y mouth every 6 hours as needed HYDROCODONE-ACETAMINOPHEN 13986027209 No Longer Active Checo Conklin MD Active ONDANSETRON [address] one tablet on tongue and allow to dissolve every 6 hours as needed for vomitting ONDANSETRO N 12168549962 No Longer Active Checo Conklin MD Active COMPRO 25 MG RECTAL SUPP insert or apply one supposit ory rectally as directed every 12 hours as needed for nausea PROCHLORPERA ZINE 41840368591 No Longer Active Checo Conklin MD Active SUMATRIPTAN SUCCINATE 100 MG ORAL TABS Take one PRN for migrane SUMATRIPTAN SUCCINATE 17776423220 No Longer Active Checo Conklin MD Active TRAVEL SICKNESS 25 MG ORAL CHEW chew and swallow one t ablet every 6 hours as needed MECLIZINE HCL 79598325546 No Longer Active Joe Conklin MD Active BUPROPION HCL ER (SR) 100 MG ORAL [id number] take one t ablet by mouth one time daily for one week then take 1 two times daily BUPROPION HCL 22277968263 No Longer Active Checo Conklin MD Activ e TERBINAFINE HCL 250 MG ORAL TABS take one table PO one time abran y TERBINAFINE HCL 43805370122 No Longer Active Checo Conklin MD Active METOCLOPRAMIDE HCL 10 MG ORAL TABS take one PO tid PRN nausea 20 29/12/14 METOCLOPRAMIDE HCL 45957076977 No Longer Active Checo Conklin MD Active DICLOFENAC SODIUM 75 MG TBEC 1 tablet by mouth twice daily P RN Knee pain DICLOFENAC SODIUM 21888060173 No Longer Active Checo Conklin MD Active LAMISIL 250 MG TAB 1 po qd TERBINAFINE HCL 548 07852868 No Longer Active Checo Conklin MD Active REGLAN 10 MG TAB 1 po TID PRN Nausea METOCLOPRA MIDE HCL 41687502200 No Longer Active Checo Conklin MD Active CELEXA 20 MG TABS 1 tablet by mouth daily CITALOPRAM HYDROBROMIDE 58379901792 No Longer Active Checo Conklin MD Activ e AZITHROMYCIN 250 MG TABS 2 po qd x 1 day, then 1 po qd x 4 days AZITHROMYCIN 09078922246 No Longer Active Checo Conklin MD Active HYDROCODONE-ACETAMINOPHEN 5-325 MG TABS 1 po q 6hr PRN Pain 2013 HYDROCODONE-ACETAMINOPHEN 18558539741 No Longer Active Lenora Conklin MD Active PHENAZOPYRIDINE HCL 200 MG TABS take 1 tab po TID for bladder pa in PHENAZOPYRIDINE HCL 36762536049 No Longer Active Checo Joshua Active CIPRO 500 MG TAB 1 tablet by mouth twice daily CIPROFLOXACIN HCL 59996533558 No Longer Active Dangelo Rangel MD Active HYDROCODONE-ACETAMINOPHEN 5-325 MG TABS 1/2 to 1 po q 4 hour s prn cough HYDROCODONE-ACETAMINOPHEN 17196837172 No Longer Activ e Dangelo Rangel MD Active BACTRIM DS 800-160 MG TABS 1 po BID x 7 days 0 SULFAMETHOXAZOLE-TRIMETHOPRIM 52287541241 No Longer Active Checo Conklin MD Active PREDNISONE 20 MG TAB 2 tabs daily for 3 days, 1 t ab daily for 3 days, 1/2 tab daily for 2 days PREDNISONE 09442060102 No Longer Active Checo Conklin MD Active TRIAMCINOLONE ACETONIDE 0.1 % OINT Apply to affected a reas TID for up to 2 weeks TRIAMCINOLONE ACETONIDE 25345330915 No Longer A ctive Checo Conklin MD Active CEFDINIR 300 MG CAPS by mouth twice a day CEFDI JAZZY 61882866045 No Longer Active Daneglo Rangel MD Active BUPROPION HCL (SMOKING DETER) 150 MG [id number] 1 a day for 1 week then 1 twice a day BUPROPION HCL (SMOKING DETER) 56708094042 No Lo nger Active Checo Conklin MD Active SIMVASTATIN 20 MG TABS 1 po qd SIMVASTATIN 0376342314 5 Active hCeco Conklin MD Active CHANTIX STARTING MONTH KARTHIK 0.5 MG X 11 & 1 MG X 42 TAB S 0.5mg daily for 3 days, then 0.5mg BID for 4 days, then 1mg BID VARENICLINE TARTRATE 37179972739 No Longer Active Checo Conklin MD Activ e XANAX 0.5 MG TABS 1 po BID PRN anxiety ALPRAZOLAM 92386894047 Active Checo Conklin MD Active CONCERTA 18 MG CR-TABS 1 po q a.m. METHYLPHENID ATE HCL 18438987061 No Longer Active Checo Conklin MD Active AMBIEN 5 MG TAB 1 po qHS PRN Insomnia ZOLPIDEM TARTRATE 70698158333 Active Checo Conklin MD Active TRAZODONE HCL 100 MG TAB 0.5 to 1 po qHS PRN Insomnia TRAZODONE HCL 56487391913 No Longer Active Checo Conklin MD Acti ve FIORICET 325-50-40 MG TAB 1 tablet by mouth four times daily as needed [id number] 22048735232 No Longer Active Checo Conklin MD Active PHENERGAN CREAM* 25mg applied to wrist q6hr PRN Nausea PHENERGAN CREAM* No Longer Active Checo Conklin MD A ctive FLONASE 50 MCG/ACT SUSP 1 spray each nostril am and hs FLUTICASONE PROPIONATE 62292891461 No Longer Active Checo Conklin MD Activ e ANTIPYRINE-BENZOCAINE 5.4-1.4 % SOLN 1-2 drops in affected ear BENZOCAINE-ANTIPYRINE 26595029716 No Longer Active Checo Conklin MD Active CEFDINIR 300 MG CAPS 1 po bid CEFDINIR 34482160 120 No Longer Active Checo Conklin MD Active PREDNISONE 20 MG TAB 2 tabs daily for 3 days, 1 t ab daily for 3 days, 1/2 tab daily for 2 days PREDNISONE 81703947077 No Longer Active Aracelis Conklin MD Active AZITHROMYCIN 250 MG TABS 2 po qd x 1 day, then 1 po qd x 4 days AZITHROMYCIN 07723638674 No Longer Active Checo Conklin MD Active PREDNISONE 20 MG TAB 2 tabs daily for 3 days, 1 t ab daily for 3 days, 1/2 tab daily for 2 days PREDNISONE 47254616137 No Longer Active Checo Conklin MD Active ZITHROMAX Z-KARTHIK 250 MG TABS 2 today, then 1 daily for 4 days 201 09/18/28 AZITHROMYCIN 49636251151 No Longer Active Paul Hamlin MD Active FOCALIN XR 10 MG [id number] 1 po q a.m. D EXMETHYLPHENIDATE HCL 51032627988 No Longer Active Paul Hamlin MD Activ e PERCOCET 10-325 MG TABS 1 tablet every 6 hours as needed for pain OXYCODONE-ACETAMINOPHEN 28456877019 No Longer Active Paul Hamlin MD Active LORTAB 5 5-500 MG TABS 1/2 to 1 tablet by mouth flaquito ry 4 hours as needed for pain HYDROCODONE-ACETAMINOPHEN 66032916500 No Longer Active Checo Conklin MD Active FOCALIN XR 15 MG [id number] 1 po q a.m. D EXMETHYLPHENIDATE HCL 38949158092 No Longer Active Checo Conklin MD Activ e ZOFRAN ODT 4 MG TBDP 1 po q6hr PRN Nausea ONDAN SETRON 39405059768 No Longer Active Checo Conklin MD Active PERCOCET 5-325 MG TABS 1 tablet by mouth every 6 hours as needed OXYCODONE-ACETAMINOPHEN 19885606854 No Longer Active Checo Conklin MD Active PYRIDIUM 200 MG TABS take 1 tab po TID prn urinary pain. 0 PHENAZOPYRIDINE HCL 91051010628 No Longer Active Checo Conklin MD Active FLUCONAZOLE 150 MG TABS take 1 tab po qday once 04/06 FLUCONAZOLE 07442752488 No Longer Active Dangelo Rangel MD Acti ve CIPRO 500 MG TAB 1 tablet by mouth twice daily CIPROFLOXACIN HCL 40916556988 No Longer Active Dangelo Rangel MD Active PYRIDIUM 200 MG TABS take 1 tab po TID prn urinary pain. 0 PYRIDIUM 200 MG TABS 1187033 PHENAZOPYRIDINE HCL Inactive PERCOCET 5-325 MG TABS 1 tablet by mouth every 6 hours as needed PERCOCET 5-325 MG TABS 5099399 OXYCODONE-ACETAMINOPHEN I nactive ZOFRAN ODT 4 MG TBDP 1 po q6hr PRN Nausea ZOFRAN ODT 4 MG TBDP 127310 ONDANSETRON Inactive FOCALIN XR 15 MG [id number] 1 po q a.m. F OCALIN XR 15 MG [id number] DEXMETHYLPHENIDATE HCL Inactive LORTAB 5 5-500 MG TABS 1/2 to 1 tablet by mouth flaquito ry 4 hours as needed for pain LORTAB 5 5-500 MG TABS HYDROCODONE-A CETAMINOPHEN Inactive PERCOCET 10-325 MG TABS 1 tablet every 6 hours as needed for pain PERCOCET 10-325 MG TABS 5365771 OXYCODONE-ACETAMINOPHEN Inactive FOCALIN XR 10 MG [id number] 1 po q a.m. F OCALIN XR 10 MG [id number] DEXMETHYLPHENIDATE HCL Inactive CEFDINIR 300 MG CAPS 1 po bid CEFDINIR 300 MG CAPS 20 0346 CEFDINIR Inactive ANTIPYRINE-BENZOCAINE 5.4-1.4 % SOLN 1-2 drops in affected ear ANTIPYRINE-BENZOCAINE 5.4-1.4 % SOLN BENZOCAINE-ANTIPYRINE I nactive FLONASE 50 MCG/ACT SUSP 1 spray each nostril am and hs FLONASE 50 MCG/ACT SUSP 4234227 FLUTICASONE PROPIONATE Inactive PHENERGAN CREAM* 25mg applied to wrist q6hr PRN Nausea PHENERGAN CREAM* Inactive FIORICET 325-50-40 MG TAB 1 tablet by mouth four times daily as needed FIORICET 325-50-40 MG TAB ACETAMINOPHEN-C AFF-BUTALBITAL Inactive TRAZODONE HCL 100 MG TAB 0.5 to 1 po qHS PRN Insomnia TRAZODONE HCL 100 MG TAB 112647 TRAZODONE HCL Inactive CONCERTA 18 MG CR-TABS [...] s prn cough HYDROCODONE-ACETAMINOPHEN 5-325 MG TABS 388326 HYDROCODONE-ACETAMINOPHEN Inactive PHENAZOPYRIDINE HCL 200 MG TABS take 1 tab po TID for bladder pa in PHENAZOPYRIDINE HCL 200 MG TABS 7017522 PHENAZOPYRIDINE HCL Inactive HYDROCODONE-ACETAMINOPHEN 5-325 MG TABS 1 po q 6hr PRN Pain 2013 HYDROCODONE-ACETAMINOPHEN 5-325 MG TABS 576724 HYDROCODONE-ACETAMINOPHEN Inactive CELEXA 20 MG TABS 1 tablet by mouth daily CELEXA 20 MG TABS 370096 CITALOPRAM HYDROBROMIDE Inactive REGLAN 10 MG TAB 1 po TID PRN Nausea REGLAN 10 MG TAB 914478 METOCLOPRAMIDE HCL Inactive LAMISIL 250 MG TAB 1 po qd LAMISIL 250 MG TAB 292442 TERBINAFINE HCL Inactive DICLOFENAC SODIUM 75 MG TBEC 1 tablet by mouth twice daily P RN Knee pain DICLOFENAC SODIUM 75 MG TBEC 545186 DICLOFENAC S ODIUM Inactive METOCLOPRAMIDE HCL 10 MG ORAL TABS take one PO tid PRN nausea 20 29/12/14 METOCLOPRAMIDE HCL 10 MG ORAL TABS 353412 METOCLOPRAMID E HCL Inactive TERBINAFINE HCL 250 MG ORAL TABS take one table PO one time abran y TERBINAFINE HCL 250 MG ORAL TABS 241216 TERBINAFINE HCL Inactive BUPROPION HCL ER (SR) 100 MG ORAL [id number] take one t ablet by mouth one time daily for one week then take 1 two times daily BUPROPION HCL ER (SR) 100 MG ORAL [id number] BUPROPION HCL Inacti ve TRAVEL SICKNESS 25 MG ORAL CHEW chew and swallow one t ablet every 6 hours as needed TRAVEL SICKNESS 25 MG ORAL CHEW 618142 MECLIZINE HCL Inactive SUMATRIPTAN SUCCINATE 100 MG ORAL TABS Take one PRN for migrane SUMATRIPTAN SUCCINATE 100 MG ORAL TABS 797101 SUMATRIPT AN SUCCINATE Inactive COMPRO 25 MG RECTAL SUPP insert or apply one supposit ory rectally as directed every 12 hours as needed for nausea COMP RO 25 MG RECTAL SUPP 394344 PROCHLORPERAZINE Inactive ONDANSETRON [address] one tablet on tongue and allow to dissolve every 6 hours as needed for vomitting ON DANSETRON 8 MG ORAL TBDP 633591 ONDANSETRON Inactive HYDROCODONE-ACETAMINOPHEN 5-325 MG TABS 0.5 to 1 tab b y mouth every 6 hours as needed HYDROCODONE-ACETAMINOPHEN 5-325 MG TABS 8 69791 HYDROCODONE-ACETAMINOPHEN Inactive BACTRIM DS 800-160 MG TAB 1 tab by mouth twice daily 2 BACTRIM DS 800-160 MG TAB 825476 TRIMETHOPRIM-SULFAMETHOXAZOLE Inac tive DIFLUCAN 150 MG TAB 1 tablet by mouth if needed, hold until symptoms start DIFLUCAN 150 MG TAB 19760325 FLUCONAZOLE Inactive IBUPROFEN 800 MG TABS 1 tab every 8 hours with food 31/03/21 IBUPROFEN 800 MG TABS 120465 IBUPROFEN Inactive HYDROCODONE-ACETAMINOPHEN 5-325 MG TABS 1 tab by mouth every 6 hours as needed HYDROCODONE-ACETAMINOPHEN 5-325 MG TABS 444699 HYDROCODONE-ACETAMINOPHEN Inactive BACTROBAN 2 % CREAM Apply to affected area BID for up to 10 days BACTROBAN 2 % CREAM 084342 MUPIROCIN CALCIUM Inactive MAGNESIUM CITRATE 1.745 GM/30ML ORAL SOLN 150ml po BID PRN C onstipation MAGNESIUM CITRATE 1.745 GM/30ML ORAL SOLN 579946 0 MAGNESIUM CITRATE Inactive DIFLUCAN 150 MG TAB 1 tablet by mouth qod DIFLUCAN 150 MG TAB 905006 FLUCONAZOLE Inactive BACTRIM DS 800-160 MG TAB 1 tab by mouth twice daily 2 BACTRIM DS 800-160 MG TAB 19820918 TRIMETHOPRIM-SULFAMETHOXAZOLE Inac tive CLARITIN 10 MG TAB 1 tablet by mouth daily as needed for allergi es CLARITIN 10 MG TAB 151489 LORATADINE Inactive FLUTICASONE PROPIONATE 50 MCG/ACT NASAL SUSP 2 sprays/ nostril qd PRN Congestion/Allergies FLUTICASONE PROPION ATE 50 MCG/ACT NASAL SUSP 3951408 FLUTICASONE PROPIONATE Inactive CIPRO 500 MG TAB 1 tablet by mouth twice daily CIPRO 500 MG TAB 920724 CIPROFLOXACIN HCL Inactive FLUCONAZOLE 150 MG TABS take 1 tab po qday once 04/06 FLUCONAZOLE 150 MG TABS 084306 FLUCONAZOLE Inactive ZITHROMAX Z-KARTHIK 250 MG TABS 2 today, then 1 daily for 4 days 201 09/18/28 ZITHROMAX Z-KARTHIK 250 MG TABS 0097269 AZITHROMYCIN Inac tive PREDNISONE 20 MG TAB 2 tabs daily for 3 days, 1 t ab daily for 3 days, 1/2 tab daily for 2 days PREDNISONE 20 MG TAB 868526 PREDNISON E Inactive AZITHROMYCIN 250 MG TABS 2 po qd x 1 day, then 1 po qd x 4 days AZITHROMYCIN 250 MG TABS 7198193 AZITHROMYCIN Inactiv e PREDNISONE 20 MG TAB 2 tabs daily for 3 days, 1 t ab daily for 3 days, 1/2 tab daily for 2 days PREDNISONE 20 MG TAB 814576 PREDNISON E Inactive CEFDINIR 300 MG CAPS by mouth twice a day CEFDINIR 300 MG CAPS 307219 CEFDINIR Inactive TRIAMCINOLONE ACETONIDE 0.1 % OINT Apply to affected a reas TID for up to 2 weeks TRIAMCINOLONE ACETONIDE 0.1 % OINT 557687 6 TRIAMCINOLONE ACETONIDE Inactive PREDNISONE 20 MG TAB 2 tabs daily for 3 days, 1 t ab daily for 3 days, 1/2 tab daily for 2 days PREDNISONE 20 MG TAB 977546 PREDNISON E Inactive BACTRIM DS 800-160 MG TABS 1 po BID x 7 days 0 BACTRIM DS 800-160 MG TABS 655487 SULFAMETHOXAZOLE-TRIMETHOPRIM Inactive CIPRO 500 MG TAB 1 tablet by mouth twice daily CIPRO 500 MG TAB 494741 CIPROFLOXACIN HCL Inactive AZITHROMYCIN 250 MG TABS 2 po qd x 1 day, then 1 po qd x 4 days AZITHROMYCIN 250 MG TABS 9815226 AZITHROMYCIN Inactiv e FLAGYL 500 MG TAB 1 tablet by mouth bid FLAGYL 500 MG TAB 711786 METRONIDAZOLE Inactive AZITHROMYCIN 250 MG TABS 2 po qd x 1 day, then 1 po qd x 4 days AZITHROMYCIN 250 MG TABS 8683828 AZITHROMYCIN Inactiv e AMOXICILLIN 500 MG ORAL CAPS 2 po BID x 10 days 09/12 AMOXICILLIN 500 MG ORAL CAPS 950920 AMOXICILLIN Inactive Immunizations Vaccine Administration Date Value [...] Report: CBC W/DIFF, Comp. Metabolic [place], [place] [facility] [place] sodium, serum 139 mmol/L 896-814 7067/10/21 carbon dioxide, venous blood 33.5 mmol/L 21.0-32 [...] Report: CBC W/DIFF, Comp. Metabolic Panel, [place] [facility] [place] H[place] leukocyte count, blood 7.9 10^3/MM^3 [...] PANEL - Chemistry cholesterol, serum 192 mg/dL 391-341 3810/02/20 HDL cholesterol, serum 31 mg/dL > OR [...] 11 .0-15.0 platelet count 218 THOUSAND/UL 10*3/mm3 004-557 3287/02/20 mean platelet volume 9.7 fL 7.5-12.5 Lab Report: Chlamydia/GC APTIMA/15532 - Lab chlamydia DNA probe NOT DETECTED NOT DETECTED Lab Report: Chlamydia/GC [facility]/25084 - Microbiology Neisseria gonorrhoeae DNA probe NOT [...] 5.0-8.5 Encounters Code Encounter Date Provider Facility CPT-56311 Level 3 Est. Patient 13:05:44 CDT Paul Hamlin MD [facility] CPT-86574 Level 3 Est. Patient 11:29:55 CDT Checo Conklin MD [facility] CPT-59295 Level 4 Est. Patient 11:08:12 [employer] Checo Conklin MD [facility] CPT-51324 Level 4 Est. Patient 16:06:48 [employer] Checo Conklin MD [facility] CPT-40351 Level 3 Est. Patient 09:11:49 CDT Efren almendarez [facility] CPT-08300 Level 2 Est. Patient 19:53:27 CDT Tanner hill MD [facility] CPT-74859 Level 3 Est. Patient 09:15:34 CDT Efren almendarez [facility] CPT-77673 Level 3 Est. Patient 11:28:51 [employer] Efren almendarez [facility] CPT-53872 Level 4 Est. Patient 13:55:46 [employer] TE[employer]ER Checo Conklin MD [facility] CPT-19092 Level 4 Est. Patient 17:10:53 CDT Checo Conklin MD [facility] CPT-62625 Level 3 Est. Patient 15:56:22 CDT Checo Conklin MD [facility] CPT-20260 Level 3 Est. Patient 15:29:07 CDT Checo Conklin MD [facility] CPT-08288 Level 3 Est. Patient 14:38:41 CDT Checo Conklin MD [facility] CPT-78917 Level 3 Est. Patient 15:22:03 [employer] Thomas reynolds DO [facility] CPT-90204 Level 3 Est. Patient 13:34:17 [employer] Checo Conklin MD [facility] CPT-06628 Level 3 Est. Patient 12:29:32 CDT Dangelo arroyo MD [facility] CPT-75013 Level 3 Est. Patient 16:53:02 CDT Checo Conklin MD [facility] CPT-53316 Level 3 Est. Patient 16:37:13 CDT Checo Conklin MD [facility] CPT-17674 Level 3 Est. Patient 16:16:59 CDT Paul Hamlin MD [facility] CPT-85880 Level 3 Est. Patient 14:20:13 CDT Dangelo arroyo MD [facility] CPT-65655 Level 4 Est. Patient 11:29:33 CDT Checo Conklin MD [facility] CPT-71291 Level 3 Est. Patient 17:08:31 CDT Checo Conklin MD [facility] CPT-96612 Level 3 Est. Patient 16:50:42 [employer] Checo Conklin MD [facility] CPT-31913 Level 4 Est. Patient 09:26:08 [employer] Checo Conklin MD [facility]-17519 Level 3 Est. Patient 11:37:10 CDT Checo Conklin MD [facility] CPT-69061 Level 4 Est. Patient 14:07:38 CDT Checo Conklin MD [facility] CPT-43876 Level 3 Est. Patient 09:54:41 CDT Checo Conklin MD [facility] CPT-03382 Level 3 Est. Patient 11:10:54 CDT Paul Hamlin MD [facility] CPT-41466 Level 3 Est. Patient 14:16:56 [employer] Checo Conklin MD [facility] CPT-48573 Level 3 Est. Patient 11:04:11 [employer] Checo Conklin MD [facility] CPT-20588 Level 3 Est. Patient 17:09:26 CDT Dangelo arroyo MD [facility] CPT-41273 Level 3 Est. Patient 16:54:37 CDT Checo Conklin MD [facility] Procedures Code Procedure Name Date Entry Date Standard Desc ription CPT-84017 UA w micro - LAB USE ONLY 17:06:46 CDT 2015 CPT-08858 [facility]CG Qual - LAB USE ONLY 17:06:46 CDT 05/06 CPT-46496 CMP - LAB USE ONLY 17:06:46 CDT CPT-01393 CBC with Diff - LAB USE ONLY 17:06:45 CDT 2 CPT-21152 Venipuncture Draw Fee 17:06:45 CDT CPT-LR Lesion Removal 19:53:27 CDT CPT-OV Office Visit 11:31:28 CDT CPT-24862 Tubersol 09:39:29 CDT CPT-J2550 Phenergan 25 mg (Promethazine) 13:59:02 [employer] CPT-J1885 Toradol 60 mg (Ketorolac) 13:59:02 [employer]ER 2012
--- OUTSIDE RECORDS SUMMARY | 2019-09-29 01:44 | XMS REPORT | Clinical Summary ---
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 Pylori AMOXICILLIN 00265310295 Active Corry Méndez LPN Active PAROXETINE HCL 20 MG ORAL TABLET 1.5 po qd PAR OXETINE HCL 50858782179 Active Checo Conklin MD Active FLUTICASONE PROPIONATE 50 MCG/ACT NASAL SUSPENSION 2 s prays/nostril qd PRN Congestion/Allergies FLUTICASONE PROPIONATE 4469296385 9 No Longer Active Checo Conklin MD Active AMOXICILLIN 500 MG ORAL CAPSULE 2 po BID x 10 days 201 01/15/27 AMOXICILLIN 46293919033 No Longer Active Checo Conklin MD Activ e MIRALAX ORAL POWDER 8.5 to 17g po qd PRN Constipation POLYETHYLENE GLYCOL 3350 57835379808 Active Checo Conklin MD Active CLARITIN 10 MG ORAL TABLET 1 tablet by mouth daily as needed for allergies LORATADINE 43765136240 No Longer Active Checo Ortiz MD Active BACTRIM DS 800-160 MG ORAL TABLET 1 tab by mouth twice daily 201 12/19/26 TRIMETHOPRIM-SULFAMETHOXAZOLE 02946486349 No Longer Active Ragini Carrillo MD Active DIFLUCAN 150 MG ORAL TABLET 1 tablet by mouth qod 2015 FLUCONAZOLE 15430536198 No Longer Active 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 DEXMETHYLPHENIDATE HCL 84790665943 Active Checo Conklin MD Active MAGNESIUM CITRATE 1.745 GM/30ML ORAL SOLUTION 150ml po BID P RN Constipation MAGNESIUM CITRATE 26117761409 No Longer Active Checo Conklin MD Active BACTROBAN 2 % EXTERNAL CREAM Apply to affected area BID for up to 10 days MUPIROCIN CALCIUM 69861620437 No Longer Active Checo Conklin MD Active HYDROCODONE-ACETAMINOPHEN 5-325 MG ORAL TABLET 1 tab b y mouth every 6 hours as needed HYDROCODONE-ACETAMINOPHEN 86981073062 No Longer Active Checo Conklin MD Active IBUPROFEN 800 MG ORAL TABLET 1 tab every 8 hours with food 03/20 IBUPROFEN 15290718238 No Longer Active Checo Conklin MD Active DIFLUCAN 150 MG ORAL TABLET 1 tablet by mouth if neede d, hold until symptoms start FLUCONAZOLE 20962290521 No Longer Active Checo Conklin MD Active BACTRIM DS 800-160 MG ORAL TABLET 1 tab by mouth twice daily 201 11/23/03 TRIMETHOPRIM-SULFAMETHOXAZOLE 65530792798 No Longer Active K bernice Méndez LPN Active HYDROCODONE-ACETAMINOPHEN 5-325 MG ORAL TABLET 0.5 to 1 tab by mouth every 6 hours as needed HYDROCODONE-ACETAMINOPHEN 38574667336 No Longer Active Checo Conklin MD Active ONDANSETRON 8 MG ORAL TABLET DISINTEGRATING place one tablet on tongue and allow to dissolve every 6 hours as needed for vomitting ONDANSETRON 76714583439 No Longer Active Checo Conklin MD Activ e COMPRO 25 MG RECTAL SUPPOSITORY insert or apply one garza ppository rectally as directed every 12 hours as needed for nausea PROCHLORPERAZINE 20460556250 No Longer Active Checo Conklin MD A ctive SUMATRIPTAN SUCCINATE 100 MG ORAL TABLET Take one PRN for migran e SUMATRIPTAN SUCCINATE 66717801126 No Longer Active Checo Conklin MD Active TRAVEL SICKNESS 25 MG ORAL TABLET CHEWABLE chew and sw allow one tablet every 6 hours as needed MECLIZINE HCL 24588695491 No Longer A ctive Checo Conklin MD Active BUPROPION HCL ER (SR) 100 MG ORAL TABLET EXTENDED RELE ASE 12 HOUR take one tablet by mouth one time daily for one week then take 1 two times daily BUPROPION HCL 50440457502 No Longer Active Checo gallagher MD Active TERBINAFINE HCL 250 MG ORAL TABLET take one table PO one time da moises TERBINAFINE HCL 85177349067 No Longer Active Checo Conklin MD Active METOCLOPRAMIDE HCL 10 MG ORAL TABLET take one PO tid PRN nausea METOCLOPRAMIDE HCL 58566040092 No Longer Active Checo Conklin MD Active DICLOFENAC SODIUM 75 MG ORAL TABLET DELAYED RELEASE 1 tablet by mouth twice daily PRN Knee pain DICLOFENAC SODIUM 23187757858 No Longer Active Checo Conklin MD Active LAMISIL 250 MG ORAL TABLET 1 po qd TERBINAFI NE HCL 32264221854 No Longer Active Checo Conklin MD Active REGLAN 10 MG ORAL TABLET 1 po TID PRN Nausea 3 METOCLOPRAMIDE HCL 74220747147 No Longer Active Checo Conklin MD Active CELEXA 20 MG ORAL TABLET 1 tablet by mouth daily 09/26 CITALOPRAM HYDROBROMIDE 15405607132 No Longer Active Checo Conklin MD Active AZITHROMYCIN 250 MG ORAL TABLET 2 po qd x 1 day, then 1 po q d x 4 days AZITHROMYCIN 48104895715 No Longer Active Checo Ortiz MD Active HYDROCODONE-ACETAMINOPHEN 5-325 MG ORAL TABLET 1 po q 6hr PRN Pa in HYDROCODONE-ACETAMINOPHEN 13109699247 No Longer Active Lenora Conklin MD Active PHENAZOPYRIDINE HCL 200 MG ORAL TABLET take 1 tab po TID for bladder pain PHENAZOPYRIDINE HCL 27797548974 No Longer Active Joe Conklin MD Active CIPRO 500 MG ORAL TABLET 1 tablet by mouth twice daily CIPROFLOXACIN HCL 99013196402 No Longer Active Dangelo Rangel MD Active HYDROCODONE-ACETAMINOPHEN 5-325 MG ORAL TABLET 1/2 to 1 po q 4 hours prn cough HYDROCODONE-ACETAMINOPHEN 58777202043 No Longer Activ candy Rangel MD Active BACTRIM DS 800-160 MG ORAL TABLET 1 po BID x 7 days 29/04/10 SULFAMETHOXAZOLE-TRIMETHOPRIM 47783209126 No Longer Active Checo Conklin MD Active PREDNISONE 20 MG ORAL TABLET 2 tabs daily for 3 days, 1 tab daily for 3 days, 1/2 tab daily for 2 days PREDNISONE 39106948144 No Longer Active Checo Conklin MD Active TRIAMCINOLONE ACETONIDE 0.1 % EXTERNAL OINTMENT Apply to affected areas TID for up to 2 weeks TRIAMCINOLONE ACETONIDE 85745730183 No Longer Active Checo Conklin MD Active CEFDINIR 300 MG ORAL CAPSULE by mouth twice a day 2013 CEFDINIR 62914731039 No Longer Active Dangelo Rangel MD Acti ve BUPROPION HCL ER (SMOKING DET) 150 MG ORAL TABLET EXTE NDED RELEASE 12 HOUR 1 a day for 1 week then 1 twice a day BUPROPION HCL (SMOKING DETER) 61172400722 No Longer Active Checo Conklin MD Active SIMVASTATIN 20 MG ORAL TABLET 1 po qd SIMVASTAT IN 76147135824 Active Checo Conklin MD Active CHANTIX STARTING MONTH KARTHIK 0.5 MG X 11 & 1 MG X 42 ORA L TABLET 0.5mg daily for 3 days, then 0.5mg BID for 4 days, then 1mg BID VARENICLINE TARTRATE 42276178811 No Longer Active Checo Conklin MD Activ e XANAX 0.5 MG ORAL TABLET 1 po BID PRN anxiety A LPRAZOLAM 34049705642 Active Checo Conklin MD Active CONCERTA 18 MG ORAL TABLET EXTENDED RELEASE 1 po q a.m. METHYLPHENIDATE HCL 68958520757 No Longer Active Checo oCnklin MD Active AMBIEN 5 MG ORAL TABLET 1 po qHS PRN Insomnia Z OLPIDEM TARTRATE 86440636060 Active Checo Conklin MD Active TRAZODONE HCL 100 MG ORAL TABLET 0.5 to 1 po qHS PRN Insomnia 20 30/07/08 TRAZODONE HCL 11927301852 No Longer Active Checo Conklin MD Active FIORICET 325-50-40 MG TAB 1 tablet by mouth four times daily as needed [id number] 73294052797 No Longer Active Checo Conklin MD Active PHENERGAN CREAM* 25mg applied to wrist q6hr PRN Nausea PHENERGAN CREAM* No Longer Active Checo Conklin MD A ctive FLONASE 50 MCG/ACT NASAL SUSPENSION 1 spray each nostril am and hs FLUTICASONE PROPIONATE 94144644300 No Longer Active Checo Conklin MD Active ANTIPYRINE-BENZOCAINE 5.4-1.4 % OTIC SOLUTION 1-2 drops in affec yohannes ear BENZOCAINE-ANTIPYRINE 49606996889 No Longer Active Checo Conklin MD Active CEFDINIR 300 MG ORAL CAPSULE 1 po bid CEFDINIR 55042131707 No Longer Active Checo Conklin MD Active PREDNISONE 20 MG ORAL TABLET 2 tabs daily for 3 days, 1 tab daily for 3 days, 1/2 tab daily for 2 days PREDNISONE 15347935056 No Longer Active Checo Conklin MD Active AZITHROMYCIN 250 MG ORAL TABLET 2 po qd x 1 day, then 1 po q d x 4 days AZITHROMYCIN 87617209155 No Longer Active Checo Ortiz MD Active PREDNISONE 20 MG ORAL TABLET 2 tabs daily for 3 days, 1 tab daily for 3 days, 1/2 tab daily for 2 days PREDNISONE 30810996318 No Longer Active Checo Conklin MD Active ZITHROMAX Z-KARTHIK 250 MG ORAL TABLET 2 today, then 1 daily for 4 d ays AZITHROMYCIN 72611989658 No Longer Active Paul Hamlin MD Active FOCALIN XR 10 MG ORAL CAPSULE EXTENDED RELEASE 24 HOUR 1 po q a. m. DEXMETHYLPHENIDATE HCL 19811927506 No Longer Active Paul Hamlin MD Active PERCOCET 10-325 MG ORAL TABLET 1 tablet every 6 hours as needed for pain OXYCODONE-ACETAMINOPHEN 69155579281 No Longer Active Paul Hamlin MD Active LORTAB 5-500 MG ORAL TABLET 1/2 to 1 tablet by mouth e very 4 hours as needed for pain HYDROCODONE-ACETAMINOPHEN 90301551884 No Longer Active Checo Conklin MD Active FOCALIN XR 15 MG ORAL CAPSULE EXTENDED RELEASE 24 HOUR 1 po q a. m. DEXMETHYLPHENIDATE HCL 77504834621 No Longer Active Checo Conklin MD Active ZOFRAN ODT 4 MG ORAL TABLET DISINTEGRATING 1 po q6hr PRN Nausea ONDANSETRON 79075677953 No Longer Active Checo Conklin MD Active PERCOCET 5-325 MG ORAL TABLET 1 tablet by mouth every 6 hour s as needed OXYCODONE-ACETAMINOPHEN 05930883223 No Longer Active Checo Conklin MD Active PYRIDIUM 200 MG ORAL TABLET take 1 tab po TID prn urinary pain. PHENAZOPYRIDINE HCL 54311340838 No Longer Active Checo Joshua Active FLUCONAZOLE 150 MG ORAL TABLET take 1 tab po qday once FLUCONAZOLE 29602632388 No Longer Active Dangelo Rangel MD Acti ve CIPRO 500 MG ORAL TABLET 1 tablet by mouth twice daily CIPROFLOXACIN HCL 88806694543 No Longer Active Dangelo Rangel MD Active PYRIDIUM 200 MG ORAL TABLET take 1 tab po TID prn urinary pain. PYRIDIUM 200 MG ORAL TABLET 2177572 PHENAZOPYRIDINE HCL Inactive PERCOCET 5-325 MG ORAL TABLET 1 tablet by mouth every 6 hour s as needed PERCOCET 5-325 MG ORAL TABLET 6046777 OXYCODONE-ACETAMINOPHEN Inactive ZOFRAN ODT 4 MG ORAL TABLET DISINTEGRATING 1 po q6hr PRN Nausea ZOFRAN ODT 4 MG ORAL TABLET DISINTEGRATING 590661 ONDAN SETRON Inactive FOCALIN XR 15 MG ORAL CAPSULE EXTENDED RELEASE 24 HOUR 1 po q a. m. FOCALIN XR 15 MG ORAL CAPSULE EXTENDED RELEASE 24 HOUR DEXMETHYLPHENIDATE HCL Inactive LORTAB 5-500 MG ORAL TABLET 1/2 to 1 tablet by mouth e very 4 hours as needed for pain LORTAB 5-500 MG ORAL TABLET 434843 HYDROCODONE-ACETAMINOPHEN Inactive PERCOCET 10-325 MG ORAL TABLET 1 tablet every 6 hours as needed for pain PERCOCET 10-325 MG ORAL TABLET 6795810 OXYCODONE-ACETAMI NOPHEN Inactive FOCALIN XR 10 MG ORAL CAPSULE EXTENDED RELEASE 24 HOUR 1 po q a. m. FOCALIN XR 10 MG ORAL CAPSULE EXTENDED RELEASE 24 HOUR DEXMETHYLPHENIDATE HCL Inactive CEFDINIR 300 MG ORAL CAPSULE 1 po bid CEFDINI R 300 MG ORAL CAPSULE 232581 CEFDINIR Inactive ANTIPYRINE-BENZOCAINE 5.4-1.4 % OTIC SOLUTION 1-2 drops in affec yohannes ear ANTIPYRINE-BENZOCAINE 5.4-1.4 % OTIC SOLUTION 914130 BENZOCAINE-ANTIPYRINE Inactive FLONASE 50 MCG/ACT NASAL SUSPENSION 1 spray each nostril am and hs FLONASE 50 MCG/ACT NASAL SUSPENSION 4318780 FLUTICASONE PROPIONATE I nactive PHENERGAN CREAM* 25mg applied to wrist q6hr PRN Nausea PHENERGAN CREAM* Inactive FIORICET 325-50-40 MG TAB 1 tablet by mouth four times daily as needed FIORICET 325-50-40 MG TAB ACETAMINOPHEN-C AFF-BUTALBITAL Inactive TRAZODONE HCL 100 MG ORAL TABLET 0.5 to 1 po qHS PRN Insomnia 20 30/07/08 TRAZODONE HCL 100 MG ORAL TABLET 084705 TRAZODONE HCL Inactive CONCERTA 18 MG ORAL [...] cough HYDROCODONE-ACETAMINOPHEN 5-325 MG ORAL TABLET 8 92969 HYDROCODONE-ACETAMINOPHEN Inactive PHENAZOPYRIDINE HCL 200 MG ORAL TABLET take 1 tab po TID for bladder pain PHENAZOPYRIDINE HCL 200 MG ORAL TABLET 7758979 PHENAZOPYRIDINE HCL Inactive HYDROCODONE-ACETAMINOPHEN 5-325 MG ORAL TABLET 1 po q 6hr PRN Pa in HYDROCODONE-ACETAMINOPHEN 5-325 MG ORAL TABLET 180549 HYDROCODONE-ACETAMINOPHEN Inactive CELEXA 20 MG ORAL TABLET 1 tablet by mouth daily 09/26 CELEXA 20 MG ORAL TABLET 010377 CITALOPRAM HYDROBROMIDE Inactive REGLAN 10 MG ORAL TABLET 1 po TID PRN Nausea 3 REGLAN 10 MG ORAL TABLET 139965 METOCLOPRAMIDE HCL Inactive LAMISIL 250 MG ORAL TABLET 1 po qd L AMISIL 250 MG ORAL TABLET 090563 TERBINAFINE HCL Inactive DICLOFENAC SODIUM 75 MG ORAL TABLET DELAYED RELEASE 1 tablet by mouth twice daily PRN Knee pain DICLOFENAC SODIUM 75 MG ORAL TABLET DELAYED RELEASE 963525 DICLOFENAC SODIUM Inactive METOCLOPRAMIDE HCL 10 MG ORAL TABLET take one PO tid PRN nausea METOCLOPRAMIDE HCL 10 MG ORAL TABLET 347531 METOCLOPRAM ZACH HCL Inactive TERBINAFINE HCL 250 MG ORAL TABLET take one table PO one time da moises TERBINAFINE HCL 250 MG ORAL TABLET 244120 TERBINAFINE H CL Inactive BUPROPION HCL ER [...] SICKNESS 25 M G ORAL TABLET CHEWABLE 694867 MECLIZINE HCL Inactive SUMATRIPTAN SUCCINATE 100 MG ORAL TABLET Take one PRN for migran e SUMATRIPTAN SUCCINATE 100 MG ORAL TABLET 320705 SUMATRIPTAN SUCCINATE Inactive COMPRO 25 MG RECTAL SUPPOSITORY insert or apply one garza ppository rectally as directed every 12 hours as needed for nausea COMPRO 25 MG RECTAL SUPPOSITORY 361321 PROCHLORPERAZINE Inactive ONDANSETRON 8 MG ORAL TABLET DISINTEGRATING place one tablet on tongue and allow to dissolve every 6 hours as needed for vomitting ONDANSETRON 8 MG ORAL TABLET DISINTEGRATING 648985 ONDANSETRON Inactive HYDROCODONE-ACETAMINOPHEN 5-325 MG ORAL TABLET 0.5 to 1 tab by mouth every 6 hours as needed HYDROCODONE-ACETAMIN OPHEN 5-325 MG ORAL TABLET 981274 HYDROCODONE-ACETAMINOPHEN Inactive BACTRIM DS 800-160 MG ORAL TABLET 1 tab by mouth twice daily 201 11/23/03 BACTRIM DS 800-160 MG ORAL TABLET 043178 TRIMETHOPRIM-SULFAMETHOXAZOLE Inactive DIFLUCAN 150 MG ORAL TABLET 1 tablet by mouth if neede d, hold until symptoms start DIFLUCAN 150 MG ORAL TABLET 272823 FLUCONAZ OLE Inactive IBUPROFEN 800 MG ORAL TABLET 1 tab every 8 hours with food 03/20 IBUPROFEN 800 MG ORAL TABLET 630355 IBUPROFEN Krupa ctive HYDROCODONE-ACETAMINOPHEN 5-325 MG ORAL TABLET 1 tab b y mouth every 6 hours as needed HYDROCODONE-ACETAMINOPHEN 5-325 MG ORAL TABLET 098539 HYDROCODONE-ACETAMINOPHEN Inactive BACTROBAN 2 % EXTERNAL CREAM Apply to affected area BID for up to 10 days BACTROBAN 2 % EXTERNAL CREAM 937728 MUPIROCIN CA LCIUM Inactive MAGNESIUM CITRATE 1.745 GM/30ML ORAL SOLUTION 150ml po BID P RN Constipation MAGNESIUM CITRATE 1.745 GM/30ML ORAL SOLUTION 10 39156 MAGNESIUM CITRATE Inactive DIFLUCAN 150 MG ORAL TABLET 1 tablet by mouth qod 2015 DIFLUCAN 150 MG ORAL TABLET 720881 FLUCONAZOLE Inactive BACTRIM DS 800-160 MG ORAL TABLET 1 tab by mouth twice daily 201 12/19/26 BACTRIM DS 800-160 MG ORAL TABLET 583737 TRIMETHOPRIM-SULFAMETHOXAZOLE Inactive CLARITIN 10 MG ORAL TABLET 1 tablet by mouth daily as needed for allergies CLARITIN 10 MG ORAL TABLET 403226 LORATADINE I nactive FLUTICASONE PROPIONATE 50 MCG/ACT NASAL SUSPENSION 2 s prays/nostril qd PRN Congestion/Allergies FLUTICASONE PROPION ATE 50 MCG/ACT NASAL SUSPENSION 6861742 FLUTICASONE PROPIONATE Inactive CIPRO 500 MG ORAL TABLET 1 tablet by mouth twice daily CIPRO 500 MG ORAL TABLET 108004 CIPROFLOXACIN HCL Inactive FLUCONAZOLE 150 MG ORAL TABLET take 1 tab po qday once FLUCONAZOLE 150 MG ORAL TABLET 635664 FLUCONAZOLE Inactive ZITHROMAX Z-KARTHIK 250 MG ORAL TABLET 2 today, then 1 daily for 4 d ays ZITHROMAX Z-KARTHIK 250 MG ORAL TABLET 381041 AZITHROMYCIN Inactive PREDNISONE 20 MG ORAL TABLET 2 tabs daily for 3 days, 1 tab daily for 3 days, 1/2 tab daily for 2 days PREDNISONE 20 MG ORAL T ABLET 606773 PREDNISONE Inactive AZITHROMYCIN 250 MG ORAL TABLET 2 po qd x 1 day, then 1 po q d x 4 days AZITHROMYCIN 250 MG ORAL TABLET 884673 AZITHROMY SPARKLE Inactive PREDNISONE 20 MG ORAL TABLET 2 tabs daily for 3 days, 1 tab daily for 3 days, 1/2 tab daily for 2 days PREDNISONE 20 MG ORAL TABLET 633592 PREDNISONE Inactive CEFDINIR 300 MG ORAL CAPSULE by mouth twice a day 2013 CEFDINIR 300 MG ORAL CAPSULE 745393 CEFDINIR Inactive TRIAMCINOLONE ACETONIDE 0.1 % EXTERNAL OINTMENT Apply to affected areas TID for up to 2 weeks TRIAMCINOLONE ACETON ZACH 0.1 % EXTERNAL OINTMENT 3676350 TRIAMCINOLONE ACETONIDE Inactive PREDNISONE 20 MG ORAL TABLET 2 tabs daily for 3 days, 1 tab daily for 3 days, 1/2 tab daily for 2 days PREDNISONE 20 MG ORAL T ABLET 683331 PREDNISONE Inactive BACTRIM DS 800-160 MG ORAL TABLET 1 po BID x 7 days 29/04/10 BACTRIM DS 800-160 MG ORAL TABLET 099386 SULFAMETHOXAZOLE-TRIMETHOP RIM Inactive CIPRO 500 MG ORAL TABLET 1 tablet by mouth twice daily CIPRO 500 MG ORAL TABLET 717698 CIPROFLOXACIN HCL Inactive AZITHROMYCIN 250 MG ORAL TABLET 2 po qd x 1 day, then 1 po q d x 4 days AZITHROMYCIN 250 MG ORAL TABLET 384167 AZITHROMY SPARKLE Inactive FLAGYL 500 MG ORAL TABLET 1 tablet by mouth bid 04/13 FLAGYL 500 MG ORAL TABLET 970743 METRONIDAZOLE Inactive AZITHROMYCIN 250 MG ORAL TABLET 2 po qd x 1 day, then 1 po q d x 4 days AZITHROMYCIN 250 MG ORAL TABLET 426687 AZITHROMY SPARKLE Inactive AMOXICILLIN 500 MG ORAL CAPSULE 2 po BID x 10 days 201 01/15/27 AMOXICILLIN 500 MG ORAL CAPSULE 739791 AMOXICILLIN Inactive Immunizations Vaccine Administration Date Value [...] PANEL - Chemistry cholesterol, serum 192 mg/dL 327-069 9130/02/20 HDL cholesterol, serum 31 mg/dL > OR [...] 11 .0-15.0 platelet count 218 THOUSAND/UL 10*3/mm3 890-366 3585/02/20 mean platelet volume 9.7 fL 7.5-12.5 Lab Report: Comp. Metabolic Panel, Eryth rocyte Sed Rate, UADIP W/MICRO, ... - Chemistry protein, total urine random Negative mg/dL Negative sodium, serum 139 mmol/L 771-557 2782/11/28 carbon dioxide, venous blood 26.0 mmol/L 21.0-32 [...] Negative Encounters Code Encounter Date Provider Facility CPT-10064 Level 3 Est. Patient 11:24:55 UNLOADER Efren almendarez [facility] CPT-67656 Level 3 Est. Patient 13:05:44 CDT Paul Hamlin MD [facility] CPT-05992 Level 3 Est. Patient 11:29:55 CDT Checo Conklin MD [facility] CPT-13354 Level 4 Est. Patient 11:08:12 UNLOADER Checo Conklin MD [facility] CPT-29917 Level 4 Est. Patient 16:06:48 UNLOADER Checo Conklin MD [facility] CPT-33303 Level 3 Est. Patient 09:11:49 CDT Efren almendarez [facility] CPT-22788 Level 2 Est. Patient 19:53:27 CDT Tanner hill MD [facility] CPT-82862 Level 3 Est. Patient 09:15:34 CDT Efren almendarez [facility] CPT-73675 Level 3 Est. Patient 11:28:51 UNLOADER Efren almendarez [facility] CPT-23547 Level 4 Est. Patient 13:55:46 UNLOADER Checo Conklin MD [facility] CPT-92810 Level 4 Est. Patient 17:10:53 CDT Checo Conklin MD [facility] CPT-92567 Level 3 Est. Patient 15:56:22 CDT Checo Conklin MD [facility] CPT-89750 Level 3 Est. Patient 15:29:07 CDT Checo Conklin MD [facility] CPT-33175 Level 3 Est. Patient 14:38:41 CDT Checo Conklin MD [facility] CPT-29796 Level 3 Est. Patient 15:22:03 UNLOADER Thomas reynolds DO [facility] CPT-49804 Level 3 Est. Patient 13:34:17 UNLOADER Checo Conklin MD [facility] CPT-86134 Level 3 Est. Patient 12:29:32 CDT Dangelo arroyo MD [facility] CPT-50949 Level 3 Est. Patient 16:53:02 CDT Checo Conklin MD [facility] CPT-89569 Level 3 Est. Patient 16:37:13 CDT Checo Conklin MD [facility] CPT-92225 Level 3 Est. Patient 16:16:59 CDT Paul Hamlin MD [facility] CPT-13922 Level 3 Est. Patient 14:20:13 CDT Dangelo arroyo MD [facility] CPT-65029 Level 4 Est. Patient 11:29:33 CDT Checo Conklin MD [facility] CPT-84410 Level 3 Est. Patient 17:08:31 CDT Checo Conklin MD [facility] CPT-34271 Level 3 Est. Patient 16:50:42 UNLOADER Checo Conklin MD [facility] CPT-12401 Level 4 Est. Patient 09:26:08 UNLOADER Checo Conklin MD [facility] CPT-85122 Level 3 Est. Patient 11:37:10 CDT Checo Conklin MD [facility] CPT-53428 Level 4 Est. Patient 14:07:38 CDT Checo Conklin MD [facility] CPT-57073 Level 3 Est. Patient 09:54:41 CDT Checo Conklin MD [facility] CPT-88176 Level 3 Est. Patient 11:10:54 CDT Paul Hamlin MD [facility]-25119 Level 3 Est. Patient 14:16:56 UNLOADER Checo Conklin MD [facility] CPT-79329 Level 3 Est. Patient 11:04:11 UNLOADER Checo Conklin MD [facility] CPT-30929 Level 3 Est. Patient 17:09:26 CDT Dangelo arroyo MD [facility] CPT-10557 Level 3 Est. Patient 16:54:37 CDT Checo Conklin MD [facility] Procedures Code Procedure Name Date Entry Date Standard Desc ription CPT-23841 Abd compl w upright - XRAY USE ONLY 1 1:36:54 UNLOADER CPT-34613 UA w micro - LAB USE ONLY 17:06:46 CDT 2015 CPT-77405 BHCG Qual - LAB USE ONLY 17:06:46 CDT 05/06 CPT-60730 CMP - LAB USE ONLY 17:06:46 CDT CPT-23943 CBC with Diff - LAB USE ONLY 17:06:45 CDT 2 CPT-50445 Venipuncture Draw Fee 17:06:45 CDT CPT-LR Lesion Removal 19:53:27 CDT CPT-OV Office Visit 11:31:28 CDT CPT-17470 Tubersol 09:39:29 CDT CPT-J2550 Phenergan 25 mg (Promethazine) 13:59:02 UNLOADER CPT-J1885 Toradol 60 mg (Ketorolac) 13:59:02 UNLOADER 2012
--- OUTSIDE RECORDS SUMMARY | 2019-09-29 01:44 | XMS REPORT | Clinical Summary ---
Author Author Admin, Bethany Gonzales Organization [employer] Address Unknown Phone Unavailable Allergies, Adverse Reactions, [...] TABS 1.5 po qd PAROX ETINE HCL 26211632481 Active Checo Conklin MD Active FLUTICASONE PROPIONATE 50 MCG/ACT NASAL SUSP 2 sprays/ nostril qd PRN Congestion/Allergies FLUTICASONE PROPIONATE 5693781856 5 No Longer Active Checo Conklin MD Active AMOXICILLIN 500 MG ORAL CAPS 2 po BID x 10 days 09/12 AMOXICILLIN 43554474711 No Longer Active Checo Conklin MD Activ e MIRALAX ORAL POWD 8.5 to 17g po qd PRN Constipation POLYETHYLENE GLYCOL 3350 73544619874 Active Checo Conklin MD Active CLARITIN 10 MG TAB 1 tablet by mouth daily as needed for allergi es LORATADINE 00234892976 No Longer Active Checo Conklin MD Active BACTRIM DS 800-160 MG TAB 1 tab by mouth twice daily 2 TRIMETHOPRIM-SULFAMETHOXAZOLE 92308727458 No Longer Active Tanner Carrillo MD Active DIFLUCAN 150 MG TAB 1 tablet by mouth qod FLUCO NAZOLE 21395678583 No Longer Active Efren Medel APRN Active AZITHROMYCIN 250 MG TABS 2 po qd x 1 day, then 1 po qd x 4 days AZITHROMYCIN 31339633879 No Longer Active Efren Medel APRN Active FLAGYL 500 MG TAB 1 tablet by mouth bid METRONI DAZOLE 91627264776 No Longer Active Checo Conklin MD Active FOCALIN XR 10 MG ORAL [id number] 1 po q a.m. DEX METHYLPHENIDATE HCL 19941673160 Active Checo Conklin MD Active MAGNESIUM CITRATE 1.745 GM/30ML ORAL SOLN 150ml po BID PRN C onstipation MAGNESIUM CITRATE 70092195818 No Longer Active Checo Conklin MD Active BACTROBAN 2 % CREAM Apply to affected area BID for up to 10 days MUPIROCIN CALCIUM 41596362212 No Longer Active Checo Conklin MD Active HYDROCODONE-ACETAMINOPHEN 5-325 MG TABS 1 tab by mouth every 6 hours as needed HYDROCODONE-ACETAMINOPHEN 33184604021 No Longer Activ e Checo Conklin MD Active IBUPROFEN 800 MG TABS 1 tab every 8 hours with food 20 31/03/21 IBUPROFEN 67798454238 No Longer Active Checo Conklin MD Activ e DIFLUCAN 150 MG TAB 1 tablet by mouth if needed, hold until symptoms start FLUCONAZOLE 60667054690 No Longer Active Checo Ortiz MD Active BACTRIM DS 800-160 MG TAB 1 tab by mouth twice daily 2 TRIMETHOPRIM-SULFAMETHOXAZOLE 23324177054 No Longer Active Corry leong LPN Active HYDROCODONE-ACETAMINOPHEN 5-325 MG TABS 0.5 to 1 tab b y mouth every 6 hours as needed HYDROCODONE-ACETAMINOPHEN 50918102682 No Longer Active Checo Conklin MD Active ONDANSETRON [address] one tablet on tongue and allow to dissolve every 6 hours as needed for vomitting ONDANSETRO N 75144727096 No Longer Active Checo Conklin MD Active COMPRO 25 MG RECTAL SUPP insert or apply one supposit ory rectally as directed every 12 hours as needed for nausea PROCHLORPERA ZINE 26586080240 No Longer Active Checo Conklin MD Active SUMATRIPTAN SUCCINATE 100 MG ORAL TABS Take one PRN for migrane SUMATRIPTAN SUCCINATE 05099947858 No Longer Active Checo Conklin MD Active TRAVEL SICKNESS 25 MG ORAL CHEW chew and swallow one t ablet every 6 hours as needed MECLIZINE HCL 31697557070 No Longer Active Joe Conklin MD Active BUPROPION HCL ER (SR) 100 MG ORAL [id number] take one t ablet by mouth one time daily for one week then take 1 two times daily BUPROPION HCL 39817809691 No Longer Active Checo Conklin MD Activ e TERBINAFINE HCL 250 MG ORAL TABS take one table PO one time abran y TERBINAFINE HCL 12768678334 No Longer Active Checo Conklin MD Active METOCLOPRAMIDE HCL 10 MG ORAL TABS take one PO tid PRN nausea 20 29/12/14 METOCLOPRAMIDE HCL 42185485375 No Longer Active Checo Conklin MD Active DICLOFENAC SODIUM 75 MG TBEC 1 tablet by mouth twice daily P RN Knee pain DICLOFENAC SODIUM 63449519980 No Longer Active Checo Conklin MD Active LAMISIL 250 MG TAB 1 po qd TERBINAFINE HCL 548 16902327 No Longer Active Checo Conklin MD Active REGLAN 10 MG TAB 1 po TID PRN Nausea METOCLOPRA MIDE HCL 21222664870 No Longer Active Checo Conklin MD Active CELEXA 20 MG TABS 1 tablet by mouth daily CITALOPRAM HYDROBROMIDE 60041222431 No Longer Active Checo Conklin MD Activ e AZITHROMYCIN 250 MG TABS 2 po qd x 1 day, then 1 po qd x 4 days AZITHROMYCIN 09146047965 No Longer Active Checo Conklin MD Active HYDROCODONE-ACETAMINOPHEN 5-325 MG TABS 1 po q 6hr PRN Pain 2013 HYDROCODONE-ACETAMINOPHEN 46591554899 No Longer Active Lenora Conklin MD Active PHENAZOPYRIDINE HCL 200 MG TABS take 1 tab po TID for bladder pa in PHENAZOPYRIDINE HCL 85019232776 No Longer Active Checo Joshua Active CIPRO 500 MG TAB 1 tablet by mouth twice daily CIPROFLOXACIN HCL 58409594941 No Longer Active Dangelo Rangel MD Active HYDROCODONE-ACETAMINOPHEN 5-325 MG TABS 1/2 to 1 po q 4 hour s prn cough HYDROCODONE-ACETAMINOPHEN 17482839095 No Longer Activ e Dangelo Rangel MD Active BACTRIM DS 800-160 MG TABS 1 po BID x 7 days 0 SULFAMETHOXAZOLE-TRIMETHOPRIM 87289412597 No Longer Active Checo Conklin MD Active PREDNISONE 20 MG TAB 2 tabs daily for 3 days, 1 t ab daily for 3 days, 1/2 tab daily for 2 days PREDNISONE 65720042301 No Longer Active Checo Conklin MD Active TRIAMCINOLONE ACETONIDE 0.1 % OINT Apply to affected a reas TID for up to 2 weeks TRIAMCINOLONE ACETONIDE 11092910711 No Longer A ctive Checo Conklin MD Active CEFDINIR 300 MG CAPS by mouth twice a day CEFDI JAZZY 07833970104 No Longer Active Dangelo Rangel MD Active BUPROPION HCL (SMOKING DETER) 150 MG [id number] 1 a day for 1 week then 1 twice a day BUPROPION HCL (SMOKING DETER) 43368587578 No Lo nger Active Checo Conklin MD Active SIMVASTATIN 20 MG TABS 1 po qd SIMVASTATIN 8508012378 5 Active Checo Conklin MD Active CHANTIX STARTING MONTH KARTHIK 0.5 MG X 11 & 1 MG X 42 TAB S 0.5mg daily for 3 days, then 0.5mg BID for 4 days, then 1mg BID VARENICLINE TARTRATE 80419125395 No Longer Active Checo Conklin MD Activ e XANAX 0.5 MG TABS 1 po BID PRN anxiety ALPRAZOLAM 51727686028 Active Checo Conklin MD Active CONCERTA 18 MG CR-TABS 1 po q a.m. METHYLPHENID ATE HCL 88343918990 No Longer Active Checo Conklin MD Active AMBIEN 5 MG TAB 1 po qHS PRN Insomnia ZOLPIDEM TARTRATE 38386731726 Active Checo Conklin MD Active TRAZODONE HCL 100 MG TAB 0.5 to 1 po qHS PRN Insomnia TRAZODONE HCL 72487969009 No Longer Active Checo Conklin MD Acti ve FIORICET 325-50-40 MG TAB 1 tablet by mouth four times daily as needed [id number] 42163487098 No Longer Active Checo Conklin MD Active PHENERGAN CREAM* 25mg applied to wrist q6hr PRN Nausea PHENERGAN CREAM* No Longer Active Checo Conklin MD A ctive FLONASE 50 MCG/ACT SUSP 1 spray each nostril am and hs FLUTICASONE PROPIONATE 49592347684 No Longer Active Checo Conklin MD Activ e ANTIPYRINE-BENZOCAINE 5.4-1.4 % SOLN 1-2 drops in affected ear BENZOCAINE-ANTIPYRINE 21484847367 No Longer Active Checo Conklin MD Active CEFDINIR 300 MG CAPS 1 po bid CEFDINIR 12002163 120 No Longer Active Checo Conklin MD Active PREDNISONE 20 MG TAB 2 tabs daily for 3 days, 1 t ab daily for 3 days, 1/2 tab daily for 2 days PREDNISONE 78552360161 No Longer Active Aracelis Conklin MD Active AZITHROMYCIN 250 MG TABS 2 po qd x 1 day, then 1 po qd x 4 days AZITHROMYCIN 17944447977 No Longer Active Checo Conklin MD Active PREDNISONE 20 MG TAB 2 tabs daily for 3 days, 1 t ab daily for 3 days, 1/2 tab daily for 2 days PREDNISONE 99128391901 No Longer Active Checo Conklin MD Active ZITHROMAX Z-KARTHIK 250 MG TABS 2 today, then 1 daily for 4 days 201 09/18/28 AZITHROMYCIN 39093493622 No Longer Active Paul Hamlin MD Active FOCALIN XR 10 MG [id number] 1 po q a.m. D EXMETHYLPHENIDATE HCL 37679918370 No Longer Active Paul Hamlin MD Activ e PERCOCET 10-325 MG TABS 1 tablet every 6 hours as needed for pain OXYCODONE-ACETAMINOPHEN 77890347549 No Longer Active Paul Hamlin MD Active LORTAB 5 5-500 MG TABS 1/2 to 1 tablet by mouth flaquito ry 4 hours as needed for pain HYDROCODONE-ACETAMINOPHEN 04845114855 No Longer Active Checo Conklin MD Active FOCALIN XR 15 MG [id number] 1 po q a.m. D EXMETHYLPHENIDATE HCL 67022308694 No Longer Active Checo Conklin MD Activ e ZOFRAN ODT 4 MG TBDP 1 po q6hr PRN Nausea ONDAN SETRON 24126352719 No Longer Active Checo Conklin MD Active PERCOCET 5-325 MG TABS 1 tablet by mouth every 6 hours as needed OXYCODONE-ACETAMINOPHEN 45850692588 No Longer Active Checo Conklin MD Active PYRIDIUM 200 MG TABS take 1 tab po TID prn urinary pain. 0 PHENAZOPYRIDINE HCL 13885188930 No Longer Active Checo Conklin MD Active FLUCONAZOLE 150 MG TABS take 1 tab po qday once 04/06 FLUCONAZOLE 78734590133 No Longer Active Dangelo Rangel MD Acti ve CIPRO 500 MG TAB 1 tablet by mouth twice daily CIPROFLOXACIN HCL 53381641545 No Longer Active Dangelo Rangel MD Active PHENERGAN CREAM* 25mg applied to wrist q6hr PRN Nausea PHENERGAN CREAM* Inactive AMOXICILLIN 500 MG ORAL CAPS 2 po BID x 10 days 09/12 AMOXICILLIN 500 MG ORAL CAPS 767731 AMOXICILLIN Inactive ANTIPYRINE-BENZOCAINE 5.4-1.4 % SOLN 1-2 drops in affected ear ANTIPYRINE-BENZOCAINE 5.4-1.4 % SOLN BENZOCAINE-ANTIPYRINE I nactive BACTRIM DS 800-160 MG TAB 1 tab by mouth twice daily 2 BACTRIM DS 800-160 MG TAB 919920 TRIMETHOPRIM-SULFAMETHOXAZOLE Inac tive BACTRIM DS 800-160 MG TABS 1 po BID x 7 days 0 BACTRIM DS 800-160 MG TABS 483251 SULFAMETHOXAZOLE-TRIMETHOPRIM Inactive BACTRIM DS 800-160 MG TAB 1 tab by mouth twice daily 2 BACTRIM DS 800-160 MG TAB 359783 TRIMETHOPRIM-SULFAMETHOXAZOLE Inac tive CIPRO 500 MG TAB 1 tablet by mouth twice daily CIPRO 500 MG TAB 934669 CIPROFLOXACIN HCL Inactive CIPRO 500 MG TAB 1 tablet by mouth twice daily CIPRO 500 MG TAB 770919 CIPROFLOXACIN HCL Inactive CLARITIN 10 MG TAB 1 tablet by mouth daily as needed for allergi es CLARITIN 10 MG TAB 060834 LORATADINE Inactive FIORICET 325-50-40 MG TAB 1 tablet by mouth four times daily as needed FIORICET 325-50-40 MG TAB ACETAMINOPHEN-C AFF-BUTALBITAL Inactive FLAGYL 500 MG TAB 1 tablet by mouth bid FLAGYL 500 MG TAB 544423 METRONIDAZOLE Inactive IBUPROFEN 800 MG TABS 1 tab every 8 hours with food 31/03/21 IBUPROFEN 800 MG TABS 717935 IBUPROFEN Inactive MAGNESIUM CITRATE 1.745 GM/30ML ORAL SOLN 150ml po BID PRN C onstipation MAGNESIUM CITRATE 1.745 GM/30ML ORAL SOLN 430008 0 MAGNESIUM CITRATE Inactive METOCLOPRAMIDE HCL 10 MG ORAL TABS take one PO tid PRN nausea 20 29/12/14 METOCLOPRAMIDE HCL 10 MG ORAL TABS 776177 METOCLOPRAMID E HCL Inactive PERCOCET 5-325 MG TABS 1 tablet by mouth every 6 hours as needed PERCOCET 5-325 MG TABS 7193658 OXYCODONE-ACETAMINOPHEN I nactive PHENAZOPYRIDINE HCL 200 MG TABS take 1 tab po TID for bladder pa in PHENAZOPYRIDINE HCL 200 MG TABS 1201137 PHENAZOPYRIDINE HCL Inactive PREDNISONE 20 MG TAB 2 tabs daily for 3 days, 1 t ab daily for 3 days, 1/2 tab daily for 2 days PREDNISONE 20 MG TAB 677799 PREDNISON E Inactive PREDNISONE 20 MG TAB 2 tabs daily for 3 days, 1 t ab daily for 3 days, 1/2 tab daily for 2 days PREDNISONE 20 MG TAB 374556 PREDNISON E Inactive PREDNISONE 20 MG TAB 2 tabs daily for 3 days, 1 t ab daily for 3 days, 1/2 tab daily for 2 days PREDNISONE 20 MG TAB 979440 PREDNISON E Inactive PYRIDIUM 200 MG TABS take 1 tab po TID prn urinary pain. 0 PYRIDIUM 200 MG TABS 8690796 PHENAZOPYRIDINE HCL Inactive REGLAN 10 MG TAB 1 po TID PRN Nausea REGLAN 10 MG TAB 418513 METOCLOPRAMIDE HCL Inactive TRAZODONE HCL 100 MG TAB 0.5 to 1 po qHS PRN Insomnia TRAZODONE HCL 100 MG TAB 249174 TRAZODONE HCL Inactive TRIAMCINOLONE ACETONIDE 0.1 % OINT Apply to affected a reas TID for up to 2 weeks TRIAMCINOLONE ACETONIDE 0.1 % OINT 872184 6 TRIAMCINOLONE ACETONIDE Inactive LORTAB 5 5-500 MG TABS 1/2 to 1 tablet by mouth flaquito ry 4 hours as needed for pain LORTAB 5 5-500 MG TABS HYDROCODONE-A CETAMINOPHEN Inactive TERBINAFINE HCL 250 MG ORAL TABS take one table PO one time abran y TERBINAFINE HCL 250 MG ORAL TABS 550129 TERBINAFINE HCL Inactive SUMATRIPTAN SUCCINATE 100 MG ORAL TABS Take one PRN for migrane SUMATRIPTAN SUCCINATE 100 MG ORAL TABS 749113 SUMATRIPT AN SUCCINATE Inactive DIFLUCAN 150 MG TAB 1 tablet by mouth if needed, hold until symptoms start DIFLUCAN 150 MG TAB 722365 FLUCONAZOLE Inactive DIFLUCAN 150 MG TAB 1 tablet by mouth qod DIFLUCAN 150 MG TAB 167908 FLUCONAZOLE Inactive FLUCONAZOLE 150 MG TABS take 1 tab po qday once 04/06 FLUCONAZOLE 150 MG TABS 766823 FLUCONAZOLE Inactive DICLOFENAC SODIUM 75 MG TBEC 1 tablet by mouth twice daily P RN Knee pain DICLOFENAC SODIUM 75 MG TBEC 163321 DICLOFENAC S ODIUM Inactive LAMISIL 250 MG TAB 1 po qd LAMISIL 250 MG TAB 656293 TERBINAFINE HCL Inactive AZITHROMYCIN 250 MG TABS 2 po qd x 1 day, then 1 po qd x 4 days AZITHROMYCIN 250 MG TABS 9560982 AZITHROMYCIN Inactiv e AZITHROMYCIN 250 MG TABS 2 po qd x 1 day, then 1 po qd x 4 days AZITHROMYCIN 250 MG TABS 1483280 AZITHROMYCIN Inactiv e AZITHROMYCIN 250 MG TABS 2 po qd x 1 day, then 1 po qd x 4 days AZITHROMYCIN 250 MG TABS 1533174 AZITHROMYCIN Inactiv e BACTROBAN 2 % CREAM Apply to affected area BID for up to 10 days BACTROBAN 2 % CREAM 926809 MUPIROCIN CALCIUM Inactive CEFDINIR 300 MG CAPS by mouth twice a day CEFDINIR 300 MG CAPS 338226 CEFDINIR Inactive CEFDINIR 300 MG CAPS 1 po bid CEFDINIR 300 MG CAPS 0346 CEFDINIR Inactive CELEXA 20 MG TABS 1 tablet by mouth daily CELEXA 20 MG TABS 417145 CITALOPRAM HYDROBROMIDE Inactive ZOFRAN ODT 4 MG TBDP 1 po q6hr PRN Nausea ZOFRAN ODT 4 MG TBDP 291743 ONDANSETRON Inactive ONDANSETRON [address] one tablet on tongue and allow to dissolve every 6 hours as needed for vomitting ON DANSETRON 8 MG ORAL TBDP 306163 ONDANSETRON Inactive CONCERTA 18 MG CR-TABS 1 po q a.m. CONCERTA 18 MG CR-TABS METHYLPHENIDATE HCL Inactive COMPRO 25 MG RECTAL SUPP insert or apply one supposit ory rectally as directed every 12 hours as needed for nausea COMP RO 25 MG RECTAL SUPP 024283 PROCHLORPERAZINE Inactive ZITHROMAX Z-KARTHIK 250 MG TABS 2 today, then 1 daily for 4 days 201 09/18/28 ZITHROMAX Z-KARTHIK 250 MG TABS 8324351 AZITHROMYCIN Inac tive FLONASE 50 MCG/ACT SUSP 1 spray each nostril am and hs FLONASE 50 MCG/ACT SUSP FLUTICASONE PROPIONATE Inactive PERCOCET 10-325 MG TABS 1 tablet every 6 hours as needed for pain PERCOCET 10-325 MG TABS 2528911 OXYCODONE-ACETAMINOPHEN Inactive HYDROCODONE-ACETAMINOPHEN 5-325 MG TABS 1 po q 6hr PRN Pain 2013 HYDROCODONE-ACETAMINOPHEN 5-325 MG TABS 913631 HYDROCODONE-ACETAMINOPHEN Inactive HYDROCODONE-ACETAMINOPHEN 5-325 MG TABS 0.5 to 1 tab b y mouth every 6 hours as needed HYDROCODONE-ACETAMINOPHEN 5-325 MG TABS 8 67699 HYDROCODONE-ACETAMINOPHEN Inactive HYDROCODONE-ACETAMINOPHEN 5-325 MG TABS 1 tab by mouth every 6 hours as needed HYDROCODONE-ACETAMINOPHEN 5-325 MG TABS 495621 HYDROCODONE-ACETAMINOPHEN Inactive HYDROCODONE-ACETAMINOPHEN 5-325 MG TABS 1/2 to 1 po q 4 hour s prn cough HYDROCODONE-ACETAMINOPHEN 5-325 MG TABS 852640 HYDROCODONE-ACETAMINOPHEN Inactive BUPROPION HCL ER (SR) 100 MG ORAL [id number] take one t ablet by mouth one time daily for one week then take 1 two times daily BUPROPION HCL ER (SR) 100 MG ORAL [id number] BUPROPION HCL Inacti ve FOCALIN XR 10 MG [id number] 1 po q a.m. F OCALIN XR 10 MG [id number] DEXMETHYLPHENIDATE HCL Inactive FLUTICASONE PROPIONATE 50 MCG/ACT NASAL SUSP 2 sprays/ nostril qd PRN Congestion/Allergies FLUTICASONE PROPION ATE 50 MCG/ACT NASAL SUSP 3854835 FLUTICASONE PROPIONATE Inactive FOCALIN XR 15 MG [id number] 1 po q a.m. F OCALIN XR 15 MG [id number] DEXMETHYLPHENIDATE HCL Inactive TRAVEL SICKNESS 25 MG ORAL CHEW chew and swallow one t ablet every 6 hours as needed TRAVEL SICKNESS 25 MG ORAL CHEW 313399 MECLIZINE HCL Inactive CHANTIX STARTING MONTH KARTHIK [...] Report: CBC W/DIFF, Comp. Metabolic Panel, Qual [facility] [place] - Chemistry sodium, serum 139 mmol/L 081-845 0437/10/21 carbon dioxide, venous blood 33.5 mmol/L 21.0-32 [...] Report: CBC W/DIFF, Comp. Metabolic Panel, Qual [facility] [place] - Hematology leukocyte count, blood 7.9 10^3/MM^3 [...] PANEL - Chemistry cholesterol, serum 192 mg/dL 127-708 0867/02/20 HDL cholesterol, serum 31 mg/dL > OR [...] 11 .0-15.0 platelet count 218 THOUSAND/UL 10*3/mm3 732-824 0327/02/20 mean platelet volume 9.7 fL 7.5-12.5 Lab Report: Chlamydia/GC APTIMA/[id number] - Lab chlamydia DNA probe NOT DETECTED NOT DETECTED Lab Report: Chlamydia/GC APTIMA/28810 - Microbiology Neisseria gonorrhoeae DNA probe NOT DETECTED NO T DETECTED Lab Report: Comp. Metabolic Panel, Thyro id Stimulating Hormone (L), Eryt ... - Chemistry sodium, serum 137 mmol/L 505-955 7498/05/27 carbon dioxide, venous blood 29.1 mmol/L 21.0-32 [...] 5.0-8.5 Encounters Code Encounter Date Provider Facility CPT-66589 Level 3 Est. Patient 11:29:55 CDT Checo Conklin MD [facility] CPT-64168 Level 4 Est. Patient 11:08:12 OWNER Checo Conklin MD [facility] CPT-21202 Level 4 Est. Patient 16:06:48 OWNER Checo Conklin MD [facility] CPT-95782 Level 3 Est. Patient 09:11:49 CDT Efren almendarez [facility] CPT-94927 Level 2 Est. Patient 19:53:27 CDT Tanner hill MD [facility] CPT-54605 Level 3 Est. Patient 09:15:34 CDT Efren almendarez [facility] CPT-20255 Level 3 Est. Patient 11:28:51 OWNER Efren almendarez [facility] CPT-96886 Level 4 Est. Patient 13:55:46 OWNER Checo Conklin MD [facility] CPT-24395 Level 4 Est. Patient 17:10:53 CDT Checo Conklin MD [facility] CPT-78834 Level 3 Est. Patient 15:56:22 CDT Checo Conklin MD [facility] CPT-59382 Level 3 Est. Patient 15:29:07 CDT Checo Conklin MD [facility] CPT-95418 Level 3 Est. Patient 14:38:41 CDT Checo Conklin MD [facility] CPT-69202 Level 3 Est. Patient 15:22:03 OWNER Thomas reynolds DO [facility] CPT-43917 Level 3 Est. Patient 13:34:17 OWNER Checo Conklin MD [facility] CPT-25073 Level 3 Est. Patient 12:29:32 CDT Dangelo arroyo MD [facility] CPT-42210 Level 3 Est. Patient 16:53:02 CDT Checo Conklin MD [facility] CPT-27480 Level 3 Est. Patient 16:37:13 CDT Checo Conklin MD [facility] CPT-32823 Level 3 Est. Patient 16:16:59 CDT Paul Hamlin MD [facility] CPT-98160 Level 3 Est. Patient 14:20:13 CDT Dangelo arroyo MD [facility] CPT-70861 Level 4 Est. Patient 11:29:33 CDT Checo Conklin MD [facility] CPT-15899 Level 3 Est. Patient 17:08:31 CDT Checo Conklin MD [facility] CPT-71884 Level 3 Est. Patient 16:50:42 OWNER Checo Conklin MD [facility] CPT-91362 Level 4 Est. Patient 09:26:08 OWNER Checo Conklin MD [facility] CPT-01916 Level 3 Est. Patient 11:37:10 CDT Checo Conklin MD [facility] CPT-44219 Level 4 Est. Patient 14:07:38 CDT Checo Conklin MD [facility] CPT-36661 Level 3 Est. Patient 09:54:41 CDT Checo Conklin MD [facility] CPT-98799 Level 3 Est. Patient 11:10:54 CDT Paul Hamlin MD [facility] CPT-64014 Level 3 Est. Patient 14:16:56 OWNER Checo Conklin MD [facility] CPT-78223 Level 3 Est. Patient 11:04:11 OWNER Chceo Conklin MD [facility] CPT-69067 Level 3 Est. Patient 17:09:26 CDT Dangelo arroyo MD [facility] CPT-84540 Level 3 Est. Patient 16:54:37 CDT Checo Conklin MD [facility] Procedures Code Procedure Name Date Entry Date Standard Desc ription CPT-15439 UA w micro - LAB USE ONLY 17:06:46 CDT 2015 CPT-11800 [facility] Qual - LAB USE ONLY 17:06:46 CDT 05/06 CPT-29626 CMP - LAB USE ONLY 17:06:46 CDT CPT-81242 CBC with Diff - LAB USE ONLY 17:06:45 CDT 2 CPT-44337 Venipuncture Draw Fee 17:06:45 CDT CPT-LR Lesion Removal 19:53:27 CDT CPT-OV Office Visit 11:31:28 CDT CPT-86884 Tubersol 09:39:29 CDT CPT-J2550 Phenergan 25 mg (Promethazine) 13:59:02 OWNER CPT-J1885 Toradol 60 mg (Ketorolac) 13:59:02 OWNER 2012
--- OUTSIDE RECORDS SUMMARY | 2019-09-29 01:44 | XMS REPORT | Clinical Summary ---
Author Author Admin, Bethany Ayala Daegis Address Unknown Phone Unavailable Allergies, Adverse Reactions, [...] vulvovaginitis, unspecified Pharyngitis 462 Active Jillina Frazell WOOD DRILLING MACHINE OPERATOR Acute pharyngitis Cough 786.2 Active Jillina Frasandra WOOD DRILLING MACHINE OPERATOR Cough Pedal edema 782.3 Active Jillina Frazell WOOD DRILLING MACHINE OPERATOR Edema NEOPLASM OF UNCERTAIN BEHAVIOR OF [...] Checo Conklin MD OTITIS MEDIA-RIGHT ICD-382.9 Inactive Cehco Conklin MD Onychomycosis, toenails ICD-110.1 Inactive Aracelis Conklin MD Hypoglycemia, unspecified ICD-251.2 Inactive Checo Conklin MD Insomnia ICD-780.52 Inactive Checo Joshua Breast mass, right ICD-611.72 Inactive Checo Conklin MD Mastalgia ICD-611.71 Inactive Checo Joshua Sinusitis ICD-461.9 Inactive Checo Coknlin MD Insect bite ICD-919.4 Inactive Checo Conklin [...] tab by mouth twice daily 2 TRIMETHOPRIM-SULFAMETHOXAZOLE 01639899120 No Longer Active Tanner Carrillo MD Active DIFLUCAN 150 MG TAB 1 tablet by mouth qod FLUCO NAZOLE 53032821487 No Longer Active Efren Medel APRN Active CLARITIN 10 MG TAB 1 tablet by mouth daily as needed for allergies LORATADINE 98308598251 Active Jillina Lizy WOOD DRILLING MACHINE OPERATOR Active AZITHROMYCIN 250 MG TABS 2 po qd x 1 day, then 1 po qd x 4 days AZITHROMYCIN 43748109971 No Longer Active Jillina Lizy RIDDLEN Active FLAGYL 500 MG TAB 1 tablet by mouth bid METRONI DAZOLE 19721577896 No Longer Active Checo Conklin MD Active FOCALIN XR 10 MG ORAL [id number] 1 po q a.m. DEX METHYLPHENIDATE HCL 75529517673 Active Checo Conklin MD Active MAGNESIUM CITRATE 1.745 GM/30ML ORAL SOLN 150ml po BID PRN C onstipation MAGNESIUM CITRATE 14017717746 No Longer Active Checo Conklin MD Active BACTROBAN 2 % CREAM Apply to affected area BID for up to 10 days MUPIROCIN CALCIUM 58378117864 No Longer Active Checo Conklin MD Active HYDROCODONE-ACETAMINOPHEN 5-325 MG TABS 1 tab by mouth every 6 hours as needed HYDROCODONE-ACETAMINOPHEN 32177313443 No Longer Activ e Checo Conklin MD Active IBUPROFEN 800 MG TABS 1 tab every 8 hours with food 20 31/03/21 IBUPROFEN 70602216113 No Longer Active Checo Conklin MD Activ e DIFLUCAN 150 MG TAB 1 tablet by mouth if needed, hold until symptoms start FLUCONAZOLE 07230738164 No Longer Active Checo Ortiz MD Active BACTRIM DS 800-160 MG TAB 1 tab by mouth twice daily 2 TRIMETHOPRIM-SULFAMETHOXAZOLE 72543435173 No Longer Active Corry leong LPN Active MIRALAX PACK 1 po qd PRN Constipation POLYETHYL JOEL GLYCOL 3350 05547884108 Active Checo Conklin MD Active HYDROCODONE-ACETAMINOPHEN 5-325 MG TABS 0.5 to 1 tab b y mouth every 6 hours as needed HYDROCODONE-ACETAMINOPHEN 16281608433 No Longer Active Checo Conklin MD Active ONDANSETRON [address] one tablet on tongue and allow to dissolve every 6 hours as needed for vomitting ONDANSETRO N 32793375418 No Longer Active Checo Conklin MD Active COMPRO 25 MG RECTAL SUPP insert or apply one supposit ory rectally as directed every 12 hours as needed for nausea PROCHLORPERA ZINE 79922865633 No Longer Active Checo Conklin MD Active SUMATRIPTAN SUCCINATE 100 MG ORAL TABS Take one PRN for migrane SUMATRIPTAN SUCCINATE 42940299972 No Longer Active Checo Conklin MD Active TRAVEL SICKNESS 25 MG ORAL CHEW chew and swallow one t ablet every 6 hours as needed MECLIZINE HCL 68364154919 No Longer Active Joe Conklin MD Active BUPROPION HCL ER (SR) 100 MG ORAL [id number] take one t ablet by mouth one time daily for one week then take 1 two times daily BUPROPION HCL 12341313617 No Longer Active Checo Conklin MD Activ e TERBINAFINE HCL 250 MG ORAL TABS take one table PO one time abran y TERBINAFINE HCL 88980929413 No Longer Active Checo Conklin MD Active METOCLOPRAMIDE HCL 10 MG ORAL TABS take one PO tid PRN nausea 20 29/12/14 METOCLOPRAMIDE HCL 70828274527 No Longer Active Checo Conklin MD Active DICLOFENAC SODIUM 75 MG TBEC 1 tablet by mouth twice daily P RN Knee pain DICLOFENAC SODIUM 58083150504 No Longer Active Checo Conklin MD Active LAMISIL 250 MG TAB 1 po qd TERBINAFINE HCL 548 25989271 No Longer Active Checo Conklin MD Active REGLAN 10 MG TAB 1 po TID PRN Nausea METOCLOPRA MIDE HCL 45987236663 No Longer Active Checo Conklin MD Active CELEXA 20 MG TABS 1 tablet by mouth daily CITALOPRAM HYDROBROMIDE 25291623672 No Longer Active Checo Conklin MD Activ e AZITHROMYCIN 250 MG TABS 2 po qd x 1 day, then 1 po qd x 4 days AZITHROMYCIN 94488732694 No Longer Active Chceo Conklin MD Active HYDROCODONE-ACETAMINOPHEN 5-325 MG TABS 1 po q 6hr PRN Pain 2013 HYDROCODONE-ACETAMINOPHEN 66855002290 No Longer Active Lenora Conklin MD Active PHENAZOPYRIDINE HCL 200 MG TABS take 1 tab po TID for bladder pa in PHENAZOPYRIDINE HCL 08678574190 No Longer Active Checo Joshua Active CIPRO 500 MG TAB 1 tablet by mouth twice daily CIPROFLOXACIN HCL 88605385800 No Longer Active Dangelo Rangel MD Active HYDROCODONE-ACETAMINOPHEN 5-325 MG TABS 1/2 to 1 po q 4 hour s prn cough HYDROCODONE-ACETAMINOPHEN 02941147615 No Longer Activ e Dangelo Rangel MD Active BACTRIM DS 800-160 MG TABS 1 po BID x 7 days 0 SULFAMETHOXAZOLE-TRIMETHOPRIM 13259016662 No Longer Active Checo Conklin MD Active PREDNISONE 20 MG TAB 2 tabs daily for 3 days, 1 t ab daily for 3 days, 1/2 tab daily for 2 days PREDNISONE 76133483246 No Longer Active Checo Conklin MD Active TRIAMCINOLONE ACETONIDE 0.1 % OINT Apply to affected a reas TID for up to 2 weeks TRIAMCINOLONE ACETONIDE 31904878465 No Longer A ctive Checo Conklin MD Active CEFDINIR 300 MG CAPS by mouth twice a day CEFDI JAZZY 67562544041 No Longer Active Dangelo Rangel MD Active BUPROPION HCL (SMOKING DETER) 150 MG [id number] 1 a day for 1 week then 1 twice a day BUPROPION HCL (SMOKING DETER) 28176725443 No Lo nger Active Checo Conklin MD Active SIMVASTATIN 20 MG TABS 1 po qd SIMVASTATIN 1618959105 5 Active Checo Conklin MD Active CHANTIX STARTING MONTH KARTHIK 0.5 MG X 11 & 1 MG X 42 TAB S 0.5mg daily for 3 days, then 0.5mg BID for 4 days, then 1mg BID VARENICLINE TARTRATE 45627463550 No Longer Active Checo Conklin MD Activ e XANAX 0.5 MG TABS 1 po BID PRN anxiety ALPRAZOLAM 54020251259 Active Checo Conklin MD Active CONCERTA 18 MG CR-TABS 1 po q a.m. METHYLPHENID ATE HCL 21661807159 No Longer Active Checo Conklin MD Active AMBIEN 5 MG TAB 1 po qHS PRN Insomnia ZOLPIDEM TARTRATE 88948422483 Active Checo Conklin MD Active TRAZODONE HCL 100 MG TAB 0.5 to 1 po qHS PRN Insomnia TRAZODONE HCL 85206085631 No Longer Active Checo Conklin MD Acti ve FIORICET 325-50-40 MG TAB 1 tablet by mouth four times daily as needed [id number] 06906775336 No Longer Active Checo Conklin MD Active PHENERGAN CREAM* 25mg applied to wrist q6hr PRN Nausea PHENERGAN CREAM* No Longer Active Checo Conklin MD A ctive FLONASE 50 MCG/ACT SUSP 1 spray each nostril am and hs FLUTICASONE PROPIONATE 57184870466 No Longer Active Checo Conklin MD Activ e ANTIPYRINE-BENZOCAINE 5.4-1.4 % SOLN 1-2 drops in affected ear BENZOCAINE-ANTIPYRINE 60076927194 No Longer Active Checo Conklin MD Active CEFDINIR 300 MG CAPS 1 po bid CEFDINIR 39990096 120 No Longer Active Checo Conklin MD Active PREDNISONE 20 MG TAB 2 tabs daily for 3 days, 1 t ab daily for 3 days, 1/2 tab daily for 2 days PREDNISONE 75910674504 No Longer Active Aracelis Conklin MD Active AZITHROMYCIN 250 MG TABS 2 po qd x 1 day, then 1 po qd x 4 days AZITHROMYCIN 98755242715 No Longer Active Checo Conklin MD Active PREDNISONE 20 MG TAB 2 tabs daily for 3 days, 1 t ab daily for 3 days, 1/2 tab daily for 2 days PREDNISONE 09036452078 No Longer Active Checo Conklin MD Active ZITHROMAX Z-KARTHIK 250 MG TABS 2 today, then 1 daily for 4 days 201 09/18/28 AZITHROMYCIN 85653082733 No Longer Active Paul Hamlin MD Active FOCALIN XR 10 MG [id number] 1 po q a.m. D EXMETHYLPHENIDATE HCL 77221373978 No Longer Active Paul Hamlin MD Activ e PERCOCET 10-325 MG TABS 1 tablet every 6 hours as needed for pain OXYCODONE-ACETAMINOPHEN 72710468166 No Longer Active Paul Hamlin MD Active LORTAB 5 5-500 MG TABS 1/2 to 1 tablet by mouth flaquito ry 4 hours as needed for pain HYDROCODONE-ACETAMINOPHEN 66134945519 No Longer Active Checo Conklin MD Active FOCALIN XR 15 MG [id number] 1 po q a.m. D EXMETHYLPHENIDATE HCL 86887825091 No Longer Active Checo Conklin MD Activ e ZOFRAN ODT 4 MG TBDP 1 po q6hr PRN Nausea ONDAN SETRON 92884550188 No Longer Active Checo Conklin MD Active PERCOCET 5-325 MG TABS 1 tablet by mouth every 6 hours as needed OXYCODONE-ACETAMINOPHEN 55653964780 No Longer Active Checo Conklin MD Active PYRIDIUM 200 MG TABS take 1 tab po TID prn urinary pain. 0 PHENAZOPYRIDINE HCL 64075187396 No Longer Active Checo Conklin MD Active FLUCONAZOLE 150 MG TABS take 1 tab po qday once 0 04/06 FLUCONAZOLE 55352254058 No Longer Active Dangelo Rangel MD Acti ve CIPRO 500 MG TAB 1 tablet by mouth twice daily CIPROFLOXACIN HCL 91842721160 No Longer Active Dangelo Rangel MD Active PYRIDIUM 200 MG TABS take 1 tab po TID prn urinary pain. 0 PYRIDIUM 200 MG TABS 9484925 PHENAZOPYRIDINE HCL Inactive PERCOCET 5-325 MG TABS 1 tablet by mouth every 6 hours as needed PERCOCET 5-325 MG TABS 8195627 OXYCODONE-ACETAMINOPHEN I nactive ZOFRAN ODT 4 MG TBDP 1 po q6hr PRN Nausea ZOFRAN ODT 4 MG TBDP 754887 ONDANSETRON Inactive FOCALIN XR 15 MG [id number] 1 po q a.m. F OCALIN XR 15 MG [id number] DEXMETHYLPHENIDATE HCL Inactive LORTAB 5 5-500 MG TABS 1/2 to 1 tablet by mouth flaquito ry 4 hours as needed for pain LORTAB 5 5-500 MG TABS HYDROCODONE-A CETAMINOPHEN Inactive PERCOCET 10-325 MG TABS 1 tablet every 6 hours as needed for pain PERCOCET 10-325 MG TABS 3069961 OXYCODONE-ACETAMINOPHEN Inactive FOCALIN XR 10 MG [id number] 1 po q a.m. F OCALIN XR 10 MG [id number] DEXMETHYLPHENIDATE HCL Inactive CEFDINIR 300 MG CAPS 1 po bid CEFDINIR 300 MG CAPS 20 0346 CEFDINIR Inactive ANTIPYRINE-BENZOCAINE 5.4-1.4 % SOLN 1-2 drops in affected ear ANTIPYRINE-BENZOCAINE 5.4-1.4 % SOLN 014720 BENZOCAINE-ANTIPYRINE I nactive FLONASE 50 MCG/ACT SUSP 1 spray each nostril am and hs FLONASE 50 MCG/ACT SUSP 045003 FLUTICASONE PROPIONATE Inactive PHENERGAN CREAM* 25mg applied to wrist q6hr PRN Nausea PHENERGAN CREAM* Inactive FIORICET 325-50-40 MG TAB 1 tablet by mouth four times daily as needed FIORICET 325-50-40 MG TAB ACETAMINOPHEN-C AFF-BUTALBITAL Inactive TRAZODONE HCL 100 MG TAB 0.5 to 1 po qHS PRN Insomnia TRAZODONE HCL 100 MG TAB 697314 TRAZODONE HCL Inactive CONCERTA 18 MG CR-TABS [...] s prn cough HYDROCODONE-ACETAMINOPHEN 5-325 MG TABS 522115 HYDROCODONE-ACETAMINOPHEN Inactive PHENAZOPYRIDINE HCL 200 MG TABS take 1 tab po TID for bladder pa in PHENAZOPYRIDINE HCL 200 MG TABS 8424796 PHENAZOPYRIDINE HCL Inactive HYDROCODONE-ACETAMINOPHEN 5-325 MG TABS 1 po q 6hr PRN Pain 2013 HYDROCODONE-ACETAMINOPHEN 5-325 MG TABS 181196 HYDROCODONE-ACETAMINOPHEN Inactive CELEXA 20 MG TABS 1 tablet by mouth daily CELEXA 20 MG TABS 554019 CITALOPRAM HYDROBROMIDE Inactive REGLAN 10 MG TAB 1 po TID PRN Nausea REGLAN 10 MG TAB 197662 METOCLOPRAMIDE HCL Inactive LAMISIL 250 MG TAB 1 po qd LAMISIL 250 MG TAB 479568 TERBINAFINE HCL Inactive DICLOFENAC SODIUM 75 MG TBEC 1 tablet by mouth twice daily P RN Knee pain DICLOFENAC SODIUM 75 MG TBEC 276050 DICLOFENAC S ODIUM Inactive METOCLOPRAMIDE HCL 10 MG ORAL TABS take one PO tid PRN nausea 20 29/12/14 METOCLOPRAMIDE HCL 10 MG ORAL TABS 409299 METOCLOPRAMID E HCL Inactive TERBINAFINE HCL 250 MG ORAL TABS take one table PO one time abran y TERBINAFINE HCL 250 MG ORAL TABS 671119 TERBINAFINE HCL Inactive BUPROPION HCL ER (SR) 100 MG ORAL [id number] take one t ablet by mouth one time daily for one week then take 1 two times daily BUPROPION HCL ER (SR) 100 MG ORAL [id number] BUPROPION HCL Inacti ve TRAVEL SICKNESS 25 MG ORAL CHEW chew and swallow one t ablet every 6 hours as needed TRAVEL SICKNESS 25 MG ORAL CHEW 370319 MECLIZINE HCL Inactive SUMATRIPTAN SUCCINATE 100 MG ORAL TABS Take one PRN for migrane SUMATRIPTAN SUCCINATE 100 MG ORAL TABS 727811 SUMATRIPT AN SUCCINATE Inactive COMPRO 25 MG RECTAL SUPP insert or apply one supposit ory rectally as directed every 12 hours as needed for nausea COMP RO 25 MG RECTAL SUPP 969037 PROCHLORPERAZINE Inactive ONDANSETRON [address] one tablet on tongue and allow to dissolve every 6 hours as needed for vomitting ON DANSETRON 8 MG ORAL TBDP 055339 ONDANSETRON Inactive HYDROCODONE-ACETAMINOPHEN 5-325 MG TABS 0.5 to 1 tab b y mouth every 6 hours as needed HYDROCODONE-ACETAMINOPHEN 5-325 MG TABS 8 24414 HYDROCODONE-ACETAMINOPHEN Inactive BACTRIM DS 800-160 MG TAB 1 tab by mouth twice daily 2 BACTRIM DS 800-160 MG TAB 339079 TRIMETHOPRIM-SULFAMETHOXAZOLE Inac tive DIFLUCAN 150 MG TAB 1 tablet by mouth if needed, hold until symptoms start DIFLUCAN 150 MG TAB 671842 FLUCONAZOLE Inactive IBUPROFEN 800 MG TABS 1 tab every 8 hours with food 31/03/21 IBUPROFEN 800 MG TABS 125314 IBUPROFEN Inactive HYDROCODONE-ACETAMINOPHEN 5-325 MG TABS 1 tab by mouth every 6 hours as needed HYDROCODONE-ACETAMINOPHEN 5-325 MG TABS 433758 HYDROCODONE-ACETAMINOPHEN Inactive BACTROBAN 2 % CREAM Apply to affected area BID for up to 10 days BACTROBAN 2 % CREAM 218622 MUPIROCIN CALCIUM Inactive MAGNESIUM CITRATE 1.745 GM/30ML ORAL SOLN 150ml po BID PRN C onstipation MAGNESIUM CITRATE 1.745 GM/30ML ORAL SOLN 840727 0 MAGNESIUM CITRATE Inactive DIFLUCAN 150 MG TAB 1 tablet by mouth qod DIFLUCAN 150 MG TAB 911665 FLUCONAZOLE Inactive BACTRIM DS 800-160 MG TAB 1 tab by mouth twice daily 2 BACTRIM DS 800-160 MG TAB 576486 TRIMETHOPRIM-SULFAMETHOXAZOLE Inac tive CIPRO 500 MG TAB 1 tablet by mouth twice daily CIPRO 500 MG TAB 276602 CIPROFLOXACIN HCL Inactive FLUCONAZOLE 150 MG TABS take 1 tab po qday once 04/06 FLUCONAZOLE 150 MG TABS 029549 FLUCONAZOLE Inactive ZITHROMAX Z-KARTHIK 250 MG TABS 2 today, then 1 daily for 4 days 201 09/18/28 ZITHROMAX Z-KARTHIK 250 MG TABS 7818300 AZITHROMYCIN Inac tive PREDNISONE 20 MG TAB 2 tabs daily for 3 days, 1 t ab daily for 3 days, 1/2 tab daily for 2 days PREDNISONE 20 MG TAB 986296 PREDNISON E Inactive AZITHROMYCIN 250 MG TABS 2 po qd x 1 day, then 1 po qd x 4 days AZITHROMYCIN 250 MG TABS 0411727 AZITHROMYCIN Inactiv e PREDNISONE 20 MG TAB 2 tabs daily for 3 days, 1 t ab daily for 3 days, 1/2 tab daily for 2 days PREDNISONE 20 MG TAB 255065 PREDNISON E Inactive CEFDINIR 300 MG CAPS by mouth twice a day CEFDINIR 300 MG CAPS 184150 CEFDINIR Inactive TRIAMCINOLONE ACETONIDE 0.1 % OINT Apply to affected a reas TID for up to 2 weeks TRIAMCINOLONE ACETONIDE 0.1 % OINT 054881 6 TRIAMCINOLONE ACETONIDE Inactive PREDNISONE 20 MG TAB 2 tabs daily for 3 days, 1 t ab daily for 3 days, 1/2 tab daily for 2 days PREDNISONE 20 MG TAB 379464 PREDNISON E Inactive BACTRIM DS 800-160 MG TABS 1 po BID x 7 days 0 BACTRIM DS 800-160 MG TABS 260417 SULFAMETHOXAZOLE-TRIMETHOPRIM Inactive CIPRO 500 MG TAB 1 tablet by mouth twice daily CIPRO 500 MG TAB 311718 CIPROFLOXACIN HCL Inactive AZITHROMYCIN 250 MG TABS 2 po qd x 1 day, then 1 po qd x 4 days AZITHROMYCIN 250 MG TABS 0801251 AZITHROMYCIN Inactiv e FLAGYL 500 MG TAB 1 tablet by mouth bid FLAGYL 500 MG TAB 056280 METRONIDAZOLE Inactive AZITHROMYCIN 250 MG TABS 2 po qd x 1 day, then 1 po qd x 4 days AZITHROMYCIN 250 MG TABS 1784389 AZITHROMYCIN Inactiv e Immunizations Vaccine Administration Date [...] ... - Chemistry sodium, serum 141 mmol/L 754-833 4097/01/26 carbon dioxide, venous blood 30.0 mmol/L 21.0-32 .0 potassium, serum 4.0 mmol/L 3.5-5.2 chloride, serum 105 mmol/L 98-107 blood glucose 85 mg/dL 65-110 urea nitrogen, blood 9 mg/dL 7-18 creatinine, serum 0.66 mg/dL 0.55-1.30 alanine aminotransferase (SGPT), serum 31 U/L 12-78 aspartate aminotransferase (SGOT), serum 21 U/L 15-37 calcium, serum 8.2 mg/dL 8.5-10.1 bilirubin, serum, total 1.10 mg/dL 0.00-1.00 cholesterol, serum 178 mg/dL 004-418 9450/01/26 triglyceride, serum, fasting 149 mg/dL 30-200 HDL [...] ... - Chemistry sodium, serum 137 mmol/L 904-820 3436/05/27 carbon dioxide, venous blood 29.1 mmol/L 21.0-32 [...] 5.0-8.5 Encounters Code Encounter Date Provider Facility CPT-92671 Level 2 Est. Patient 19:53:27 CDT Tanner hill MD [facility] CPT-20660 Level 3 Est. Patient 09:15:34 CDT Efren almendarez [facility] CPT-49125 Level 3 Est. Patient 11:28:51 BILLING SPEC Efren almendarez [facility] CPT-17764 Level 4 Est. Patient 13:55:46 BILLING SPEC Checo Conklin MD [facility] CPT-11483 Level 4 Est. Patient 17:10:53 CDT Checo Conklin MD [facility] CPT-69445 Level 3 Est. Patient 15:56:22 CDT Checo Conklin MD [facility] CPT-09507 Level 3 Est. Patient 15:29:07 CDT Checo Conklin MD [facility] CPT-85366 Level 3 Est. Patient 14:38:41 CDT Cehco Conklin MD [facility] CPT-19782 Level 3 Est. Patient 15:22:03 BILLING SPEC Thomas reynolds DO [facility] CPT-43395 Level 3 Est. Patient 13:34:17 BILLING SPEC Checo Conklin MD [facility] CPT-27456 Level 3 Est. Patient 12:29:32 CDT Dangelo arroyo MD [facility] CPT-41699 Level 3 Est. Patient 16:53:02 CDT Checo Conklin MD [facility] CPT-11228 Level 3 Est. Patient 16:37:13 CDT Checo Conklin MD [facility] CPT-65413 Level 3 Est. Patient 16:16:59 CDT Paul Hamlin MD [facility] CPT-72957 Level 3 Est. Patient 14:20:13 CDT Dangelo arroyo MD [facility] CPT-24342 Level 4 Est. Patient 11:29:33 CDT Checo Conklin MD [facility] CPT-19205 Level 3 Est. Patient 17:08:31 CDT Checo Conklin MD [facility] CPT-60093 Level 3 Est. Patient 16:50:42 BILLING SPEC Checo Conklin MD [facility] CPT-63328 Level 4 Est. Patient 09:26:08 BILLING SPEC Checo Conklin MD [facility] CPT-36067 Level 3 Est. Patient 11:37:10 CDT Checo Conklin MD [facility] CPT-24297 Level 4 Est. Patient 14:07:38 CDT Checo Conklin MD [facility] CPT-05920 Level 3 Est. Patient 09:54:41 CDT Checo Conklin MD [facility] CPT-00896 Level 3 Est. Patient 11:10:54 CDT Paul Hamlin MD [facility] CPT-17502 Level 3 Est. Patient 14:16:56 BILLING SPEC Checo Conklin MD [facility] CPT-36078 Level 3 Est. Patient 11:04:11 BILLING SPEC Checo Conklin MD [facility] CPT-42597 Level 3 Est. Patient 17:09:26 CDT Dangelo arroyo MD [facility] CPT-47864 Level 3 Est. Patient 16:54:37 CDT Checo Conklin MD [facility] Procedures Code Procedure Name Date Entry Date Standard Desc ription CPT-LR Lesion Removal 19:53:27 CDT CPT-OV Office Visit 11:31:28 CDT CPT-34246 Tubersol 09:39:29 CDT CPT-J2550 Phenergan 25 mg (Promethazine) 13:59:02 BILLING SPEC CPT-J1885 Toradol 60 mg (Ketorolac) 13:59:02 BILLING SPEC 2012
--- OUTSIDE RECORDS SUMMARY | 2019-09-29 01:45 | XMS REPORT | Clinical Summary ---
Author Author Admin, Bethany Ayala [facility] Address Unknown Phone Unavailable Allergies, [...] HEADACHE, TENSION ICD-307.81 Inactive Checo Conklin MD BREAST CANCER ICD-V16.3 Inactive Checo Joshua OTITIS MEDIA-RIGHT ICD-382.9 Inactive [...] Abscess, skin ICD-682.9 Inactive Checo richey MD PHARYNGITIS ICD-462 Inactive Checo Conklin MD Bacterial vaginosis ICD-616.10 [...] RELEASE 1 daily with furosemide POTASSIUM CHLORIDE 52658493640 Active Paul Hamlin MD Active FUROSEMIDE 20 MG ORAL TABLET 1 daily for swelling FUROSEMIDE 15288709088 Active Paul Hamlin MD Active HYDROCHLOROTHIAZIDE 12.5 MG ORAL CAPSULE 1 po qd PRN Edema 01/10 HYDROCHLOROTHIAZIDE 23607791680 No Longer Active Paul Hamlin MD Active IBUPROFEN 800 MG ORAL TABLET 1 tab every 8 hours as needed for p ain IBUPROFEN 42190584820 No Longer Active Paul Hamlin MD Active PAROXETINE HCL 40 MG ORAL TABLET 1 po qd PAR OXETINE HCL 46297897340 Active Checo Conklin MD Active MIRALAX ORAL POWDER 8.5 to 17g po qd PRN Constipation POLYETHYLENE GLYCOL 3350 12451170752 No Longer Active Checo Conklin MD Active PROTONIX 40 MG ORAL TABLET DELAYED RELEASE 1 pill by m out daily, for acid reflux PANTOPRAZOLE SODIUM 75246576267 No Longer Activ e Corry Méndez LPN Active FLAGYL 500 MG ORAL TABLET 1 tablet by mouth bid 08/29 METRONIDAZOLE 27728061678 No Longer Active Corry Méndez LPN Active CLARITHROMYCIN 500 MG ORAL TABLET 1 tab po BID x 14 days CLARITHROMYCIN 96664135022 No Longer Active Corry Méndez LPN Active AMOXICILLIN 500 MG ORAL CAPSULE 2 po BID x 14 days for H. Pylori AMOXICILLIN 70406109717 No Longer Active Corry Méndez LPN Active FLUTICASONE PROPIONATE 50 MCG/ACT NASAL SUSPENSION 2 s prays/nostril qd PRN Congestion/Allergies FLUTICASONE PROPIONATE 2782031700 9 No Longer Active Checo Conklin MD Active AMOXICILLIN 500 MG ORAL CAPSULE 2 po BID x 10 days 201 01/15/27 AMOXICILLIN 35396350391 No Longer Active Checo Conklin MD Activ e CLARITIN 10 MG ORAL TABLET 1 tablet by mouth daily as needed for allergies LORATADINE 13638912117 No Longer Active Checo Ortiz MD Active BACTRIM DS 800-160 MG ORAL TABLET 1 tab by mouth twice daily 201 12/19/26 TRIMETHOPRIM-SULFAMETHOXAZOLE 95436181842 No Longer Active Ragini Carrillo MD Active DIFLUCAN 150 MG ORAL TABLET 1 tablet by mouth qod 2015 FLUCONAZOLE 86765958321 No Longer Active Efren Medel ONLINE PROGRAM COORDINATOR Act mike AZITHROMYCIN 250 MG ORAL TABLET 2 po qd x 1 day, then 1 po q d x 4 days AZITHROMYCIN 58862273124 No Longer Active Efren flores ONLINE PROGRAM COORDINATOR Active FLAGYL 500 MG ORAL TABLET 1 tablet by mouth bid 04/13 METRONIDAZOLE 97231496076 No Longer Active Checo Conklin MD Acti ve FOCALIN XR 10 MG ORAL CAPSULE EXTENDED RELEASE 24 HOUR 1 po q a.m. DEXMETHYLPHENIDATE HCL 52718051799 Active Checo Conklin MD Active MAGNESIUM CITRATE 1.745 GM/30ML ORAL SOLUTION 150ml po BID P RN Constipation MAGNESIUM CITRATE 67711911125 No Longer Active Checo Conklin MD Active BACTROBAN 2 % EXTERNAL CREAM Apply to affected area BID for up to 10 days MUPIROCIN CALCIUM 03786113165 No Longer Active Checo Conklin MD Active HYDROCODONE-ACETAMINOPHEN 5-325 MG ORAL TABLET 1 tab b y mouth every 6 hours as needed HYDROCODONE-ACETAMINOPHEN 43745219549 No Longer Active Checo Conklin MD Active IBUPROFEN 800 MG ORAL TABLET 1 tab every 8 hours with food 03/20 IBUPROFEN 84167046141 No Longer Active Checo Conklin MD Active DIFLUCAN 150 MG ORAL TABLET 1 tablet by mouth if neede d, hold until symptoms start FLUCONAZOLE 18348010524 No Longer Active Checo Conklin MD Active BACTRIM DS 800-160 MG ORAL TABLET 1 tab by mouth twice daily 201 11/23/03 TRIMETHOPRIM-SULFAMETHOXAZOLE 99558221622 No Longer Active K bernice Méndez LPN Active HYDROCODONE-ACETAMINOPHEN 5-325 MG ORAL TABLET 0.5 to 1 tab by mouth every 6 hours as needed HYDROCODONE-ACETAMINOPHEN 79167662971 No Longer Active Checo Conklin MD Active ONDANSETRON 8 MG ORAL TABLET DISINTEGRATING place one tablet on tongue and allow to dissolve every 6 hours as needed for vomitting ONDANSETRON 55351364730 No Longer Active Checo Conklin MD Activ e COMPRO 25 MG RECTAL SUPPOSITORY insert or apply one garza ppository rectally as directed every 12 hours as needed for nausea PROCHLORPERAZINE 47905043417 No Longer Active Checo Conklin MD A ctive SUMATRIPTAN SUCCINATE 100 MG ORAL TABLET Take one PRN for migran e SUMATRIPTAN SUCCINATE 10772442666 No Longer Active Checo Conklin MD Active TRAVEL SICKNESS 25 MG ORAL TABLET CHEWABLE chew and sw allow one tablet every 6 hours as needed MECLIZINE HCL 22743656915 No Longer A ctive Checo Conklin MD Active BUPROPION HCL ER (SR) 100 MG ORAL TABLET EXTENDED RELE ASE 12 HOUR take one tablet by mouth one time daily for one week then take 1 two times daily BUPROPION HCL 06217221124 No Longer Active Checo gallagher MD Active TERBINAFINE HCL 250 MG ORAL TABLET take one table PO one time da moises TERBINAFINE HCL 60893642881 No Longer Active Checo Conklin MD Active METOCLOPRAMIDE HCL 10 MG ORAL TABLET take one PO tid PRN nausea METOCLOPRAMIDE HCL 59131964972 No Longer Active Checo Conklin MD Active DICLOFENAC SODIUM 75 MG ORAL TABLET DELAYED RELEASE 1 tablet by mouth twice daily PRN Knee pain DICLOFENAC SODIUM 06903452093 No Longer Active Checo Conklin MD Active LAMISIL 250 MG ORAL TABLET 1 po qd TERBINAFI NE HCL 83453757374 No Longer Active Checo Conklin MD Active REGLAN 10 MG ORAL TABLET 1 po TID PRN Nausea 3 METOCLOPRAMIDE HCL 69986866242 No Longer Active Checo Conklin MD Active CELEXA 20 MG ORAL TABLET 1 tablet by mouth daily 09/26 CITALOPRAM HYDROBROMIDE 04104270816 No Longer Active Checo Conklin MD Active AZITHROMYCIN 250 MG ORAL TABLET 2 po qd x 1 day, then 1 po q d x 4 days AZITHROMYCIN 15873114497 No Longer Active Checo Ortiz MD Active HYDROCODONE-ACETAMINOPHEN 5-325 MG ORAL TABLET 1 po q 6hr PRN Pa in HYDROCODONE-ACETAMINOPHEN 09844459025 No Longer Active Lenora Conklin MD Active PHENAZOPYRIDINE HCL 200 MG ORAL TABLET take 1 tab po TID for bladder pain PHENAZOPYRIDINE HCL 69383012355 No Longer Active Joe Conklin MD Active CIPRO 500 MG ORAL TABLET 1 tablet by mouth twice daily CIPROFLOXACIN HCL 34135209574 No Longer Active Dangelo Rangel MD Active HYDROCODONE-ACETAMINOPHEN 5-325 MG ORAL TABLET 1/2 to 1 po q 4 hours prn cough HYDROCODONE-ACETAMINOPHEN 09572272396 No Longer Activ candy Rangel MD Active BACTRIM DS 800-160 MG ORAL TABLET 1 po BID x 7 days 29/04/10 SULFAMETHOXAZOLE-TRIMETHOPRIM 93209765349 No Longer Active Checo Conklin MD Active PREDNISONE 20 MG ORAL TABLET 2 tabs daily for 3 days, 1 tab daily for 3 days, 1/2 tab daily for 2 days PREDNISONE 70788277542 No Longer Active Checo Conklin MD Active TRIAMCINOLONE ACETONIDE 0.1 % EXTERNAL OINTMENT Apply to affected areas TID for up to 2 weeks TRIAMCINOLONE ACETONIDE 80475951162 No Longer Active Checo Conklin MD Active CEFDINIR 300 MG ORAL CAPSULE by mouth twice a day 2013 CEFDINIR 13974916409 No Longer Active Dangelo Rangel MD Acti ve BUPROPION HCL ER (SMOKING DET) 150 MG ORAL TABLET EXTE NDED RELEASE 12 HOUR 1 a day for 1 week then 1 twice a day BUPROPION HCL (SMOKING DETER) 45719234129 No Longer Active Checo Conklin MD Active SIMVASTATIN 20 MG ORAL TABLET 1 po qd SIMVASTAT IN 31387495090 Active Checo Conklin MD Active CHANTIX STARTING MONTH KARTHIK 0.5 MG X 11 & 1 MG X 42 ORA L TABLET 0.5mg daily for 3 days, then 0.5mg BID for 4 days, then 1mg BID VARENICLINE TARTRATE 57291038156 No Longer Active Checo Conklin MD Activ e XANAX 0.5 MG ORAL TABLET 1 po BID PRN anxiety A LPRAZOLAM 28164515872 Active Thomas Marks DO Active CONCERTA 18 MG ORAL TABLET EXTENDED RELEASE 1 po q a.m. METHYLPHENIDATE HCL 90141869959 No Longer Active Checo Conklin MD Active AMBIEN 5 MG ORAL TABLET 1 po qHS PRN Insomnia Z OLPIDEM TARTRATE 05767247555 Active Checo Conklin MD Active TRAZODONE HCL 100 MG ORAL TABLET 0.5 to 1 po qHS PRN Insomnia 20 30/07/08 TRAZODONE HCL 37418475897 No Longer Active Checo Conklin MD Active FIORICET 325-50-40 MG TAB 1 tablet by mouth four times daily as needed [id number]-[id number]-IAMUENIKTC 87893202328 No Longer Active Checo Conklin MD Active PHENERGAN CREAM* 25mg applied to wrist q6hr PRN Nausea PHENERGAN CREAM* No Longer Active Checo Conklin MD A ctive FLONASE 50 MCG/ACT NASAL SUSPENSION 1 spray each nostril am and hs FLUTICASONE PROPIONATE 47106194275 No Longer Active Checo Conklin MD Active ANTIPYRINE-BENZOCAINE 5.4-1.4 % OTIC SOLUTION 1-2 drops in affec yohannes ear BENZOCAINE-ANTIPYRINE 09588532562 No Longer Active Checo Conklin MD Active CEFDINIR 300 MG ORAL CAPSULE 1 po bid CEFDINIR 04363126642 No Longer Active Checo Conklin MD Active PREDNISONE 20 MG ORAL TABLET 2 tabs daily for 3 days, 1 tab daily for 3 days, 1/2 tab daily for 2 days PREDNISONE 81129165105 No Longer Active Checo Conklin MD Active AZITHROMYCIN 250 MG ORAL TABLET 2 po qd x 1 day, then 1 po q d x 4 days AZITHROMYCIN 35716317225 No Longer Active Checo Ortiz MD Active PREDNISONE 20 MG ORAL TABLET 2 tabs daily for 3 days, 1 tab daily for 3 days, 1/2 tab daily for 2 days PREDNISONE 25783104799 No Longer Active Checo Conklin MD Active ZITHROMAX Z-KARTHIK 250 MG ORAL TABLET 2 today, then 1 daily for 4 d ays AZITHROMYCIN 52452006026 No Longer Active Paul Hamlin MD Active FOCALIN XR 10 MG ORAL CAPSULE EXTENDED RELEASE 24 HOUR 1 po q a. m. DEXMETHYLPHENIDATE HCL 81171350715 No Longer Active Paul Hamlin MD Active PERCOCET 10-325 MG ORAL TABLET 1 tablet every 6 hours as needed for pain OXYCODONE-ACETAMINOPHEN 30977443080 No Longer Active Paul Hamlin MD Active LORTAB 5-500 MG ORAL TABLET 1/2 to 1 tablet by mouth e very 4 hours as needed for pain HYDROCODONE-ACETAMINOPHEN 39947700537 No Longer Active Checo Conklin MD Active FOCALIN XR 15 MG ORAL CAPSULE EXTENDED RELEASE 24 HOUR 1 po q a. m. DEXMETHYLPHENIDATE HCL 90948994211 No Longer Active Checo Conklin MD Active ZOFRAN ODT 4 MG ORAL TABLET DISINTEGRATING 1 po q6hr PRN Nausea ONDANSETRON 85591897261 No Longer Active Checo Conklin MD Active PERCOCET 5-325 MG ORAL TABLET 1 tablet by mouth every 6 hour s as needed OXYCODONE-ACETAMINOPHEN 94114005055 No Longer Active Checo Conklin MD Active PYRIDIUM 200 MG ORAL TABLET take 1 tab po TID prn urinary pain. PHENAZOPYRIDINE HCL 59319936033 No Longer Active Checo Joshua Active FLUCONAZOLE 150 MG ORAL TABLET take 1 tab po qday once FLUCONAZOLE 43952270987 No Longer Active Dangelo Rangel MD Acti ve CIPRO 500 MG ORAL TABLET 1 tablet by mouth twice daily CIPROFLOXACIN HCL 90728968085 No Longer Active Dangelo Rangel MD Active PYRIDIUM 200 MG ORAL TABLET take 1 tab po TID prn urinary pain. PYRIDIUM 200 MG ORAL TABLET 2400338 PHENAZOPYRIDINE HCL Inactive PERCOCET 5-325 MG ORAL TABLET 1 tablet by mouth every 6 hour s as needed PERCOCET 5-325 MG ORAL TABLET 1686524 OXYCODONE-ACETAMINOPHEN Inactive ZOFRAN ODT 4 MG ORAL TABLET DISINTEGRATING 1 po q6hr PRN Nausea ZOFRAN ODT 4 MG ORAL TABLET DISINTEGRATING 025312 ONDAN SETRON Inactive FOCALIN XR 15 MG [...] for pain PERCOCET 10-325 MG ORAL TABLET 2478864 OXYCODONE-ACETAMI NOPHEN Inactive FOCALIN XR 10 MG ORAL CAPSULE EXTENDED RELEASE 24 HOUR 1 po q a. m. FOCALIN XR 10 MG ORAL CAPSULE EXTENDED RELEASE 24 HOUR DEXMETHYLPHENIDATE HCL Inactive CEFDINIR 300 MG ORAL CAPSULE 1 po bid CEFDINI R 300 MG ORAL CAPSULE 238087 CEFDINIR Inactive ANTIPYRINE-BENZOCAINE 5.4-1.4 % OTIC SOLUTION 1-2 drops in affec yohannes ear ANTIPYRINE-BENZOCAINE 5.4-1.4 % OTIC SOLUTION BENZOCAINE-ANTIPYRINE Inactive FLONASE 50 MCG/ACT NASAL SUSPENSION 1 spray each nostril am and hs FLONASE 50 MCG/ACT NASAL SUSPENSION 0724522 FLUTICASONE PROPIONATE I nactive PHENERGAN CREAM* 25mg applied to wrist q6hr PRN Nausea PHENERGAN CREAM* Inactive FIORICET 325-50-40 MG TAB 1 tablet by mouth four times daily as needed FIORICET 325-50-40 MG TAB ACETAMINOPHEN-C AFF-BUTALBITAL Inactive TRAZODONE HCL 100 MG ORAL TABLET 0.5 to 1 po qHS PRN Insomnia 20 30/07/08 TRAZODONE HCL 100 MG ORAL TABLET 104146 TRAZODONE HCL Inactive CONCERTA 18 MG ORAL [...] cough HYDROCODONE-ACETAMINOPHEN 5-325 MG ORAL TABLET 8 40974 HYDROCODONE-ACETAMINOPHEN Inactive PHENAZOPYRIDINE HCL 200 MG ORAL TABLET take 1 tab po TID for bladder pain PHENAZOPYRIDINE HCL 200 MG ORAL TABLET 1471880 PHENAZOPYRIDINE HCL Inactive HYDROCODONE-ACETAMINOPHEN 5-325 MG ORAL TABLET 1 po q 6hr PRN Pa in HYDROCODONE-ACETAMINOPHEN 5-325 MG ORAL TABLET 552353 HYDROCODONE-ACETAMINOPHEN Inactive CELEXA 20 MG ORAL TABLET 1 tablet by mouth daily 09/26 CELEXA 20 MG ORAL TABLET 713642 CITALOPRAM HYDROBROMIDE Inactive REGLAN 10 MG ORAL TABLET 1 po TID PRN Nausea 3 REGLAN 10 MG ORAL TABLET 961226 METOCLOPRAMIDE HCL Inactive LAMISIL 250 MG ORAL TABLET 1 po qd L AMISIL 250 MG ORAL TABLET 810326 TERBINAFINE HCL Inactive DICLOFENAC SODIUM 75 MG ORAL TABLET DELAYED RELEASE 1 tablet by mouth twice daily PRN Knee pain DICLOFENAC SODIUM 75 MG ORAL TABLET DELAYED RELEASE 332801 DICLOFENAC SODIUM Inactive METOCLOPRAMIDE HCL 10 MG ORAL TABLET take one PO tid PRN nausea METOCLOPRAMIDE HCL 10 MG ORAL TABLET 301772 METOCLOPRAM ZACH HCL Inactive TERBINAFINE HCL 250 MG ORAL TABLET take one table PO one time da moises TERBINAFINE HCL 250 MG ORAL TABLET 050931 TERBINAFINE H CL Inactive BUPROPION HCL ER [...] SICKNESS 25 M G ORAL TABLET CHEWABLE 491379 MECLIZINE HCL Inactive SUMATRIPTAN SUCCINATE 100 MG ORAL TABLET Take one PRN for migran e SUMATRIPTAN SUCCINATE 100 MG ORAL TABLET 090832 SUMATRIPTAN SUCCINATE Inactive COMPRO 25 MG RECTAL SUPPOSITORY insert or apply one garza ppository rectally as directed every 12 hours as needed for nausea COMPRO 25 MG RECTAL SUPPOSITORY 861580 PROCHLORPERAZINE Inactive ONDANSETRON 8 MG ORAL TABLET DISINTEGRATING place one tablet on tongue and allow to dissolve every 6 hours as needed for vomitting ONDANSETRON 8 MG ORAL TABLET DISINTEGRATING 923170 ONDANSETRON Inactive HYDROCODONE-ACETAMINOPHEN 5-325 MG ORAL TABLET 0.5 to 1 tab by mouth every 6 hours as needed HYDROCODONE-ACETAMIN OPHEN 5-325 MG ORAL TABLET 658351 HYDROCODONE-ACETAMINOPHEN Inactive BACTRIM DS 800-160 MG ORAL TABLET 1 tab by mouth twice daily 201 11/23/03 BACTRIM DS 800-160 MG ORAL TABLET 092285 TRIMETHOPRIM-SULFAMETHOXAZOLE Inactive DIFLUCAN 150 MG ORAL TABLET 1 tablet by mouth if neede d, hold until symptoms start DIFLUCAN 150 MG ORAL TABLET 660359 FLUCONAZ OLE Inactive IBUPROFEN 800 MG ORAL TABLET 1 tab every 8 hours with food 03/20 IBUPROFEN 800 MG ORAL TABLET 119792 IBUPROFEN Krupa ctive HYDROCODONE-ACETAMINOPHEN 5-325 MG ORAL TABLET 1 tab b y mouth every 6 hours as needed HYDROCODONE-ACETAMINOPHEN 5-325 MG ORAL TABLET 489133 HYDROCODONE-ACETAMINOPHEN Inactive BACTROBAN 2 % EXTERNAL CREAM Apply to affected area BID for up to 10 days BACTROBAN 2 % EXTERNAL CREAM 458915 MUPIROCIN CA LCIUM Inactive MAGNESIUM CITRATE 1.745 GM/30ML ORAL SOLUTION 150ml po BID P RN Constipation MAGNESIUM CITRATE 1.745 GM/30ML ORAL SOLUTION 10 20460 MAGNESIUM CITRATE Inactive DIFLUCAN 150 MG ORAL TABLET 1 tablet by mouth qod 2015 DIFLUCAN 150 MG ORAL TABLET 320191 FLUCONAZOLE Inactive BACTRIM DS 800-160 MG ORAL TABLET 1 tab by mouth twice daily 201 12/19/26 BACTRIM DS 800-160 MG ORAL TABLET 879876 TRIMETHOPRIM-SULFAMETHOXAZOLE Inactive CLARITIN 10 MG ORAL TABLET 1 tablet by mouth daily as needed for allergies CLARITIN 10 MG ORAL TABLET 301406 LORATADINE I nactive FLUTICASONE PROPIONATE 50 MCG/ACT NASAL SUSPENSION 2 s prays/nostril qd PRN Congestion/Allergies FLUTICASONE PROPION ATE 50 MCG/ACT NASAL SUSPENSION 9473550 FLUTICASONE PROPIONATE Inactive MIRALAX ORAL POWDER 8.5 to 17g po qd PRN Constipation MIRALAX ORAL POWDER 623561 POLYETHYLENE GLYCOL 3350 Inactive IBUPROFEN 800 MG ORAL TABLET 1 tab every 8 hours as needed for p ain IBUPROFEN 800 MG ORAL TABLET 251765 IBUPROFEN Krupa ctive HYDROCHLOROTHIAZIDE 12.5 MG ORAL CAPSULE 1 po qd PRN Edema 01/10 HYDROCHLOROTHIAZIDE 12.5 MG ORAL CAPSULE 490379 HYDROCH LOROTHIAZIDE Inactive CIPRO 500 MG ORAL TABLET 1 tablet by mouth twice daily CIPRO 500 MG ORAL TABLET 522137 CIPROFLOXACIN HCL Inactive FLUCONAZOLE 150 MG ORAL TABLET take 1 tab po qday once FLUCONAZOLE 150 MG ORAL TABLET 241945 FLUCONAZOLE Inactive ZITHROMAX Z-KARTHIK 250 MG ORAL TABLET 2 today, then 1 daily for 4 d ays ZITHROMAX Z-KARTHIK 250 MG ORAL TABLET 730591 AZITHROMYCIN Inactive PREDNISONE 20 MG ORAL TABLET 2 tabs daily for 3 days, 1 tab daily for 3 days, 1/2 tab daily for 2 days PREDNISONE 20 MG ORAL T ABLET 796544 PREDNISONE Inactive AZITHROMYCIN 250 MG ORAL TABLET 2 po qd x 1 day, then 1 po q d x 4 days AZITHROMYCIN 250 MG ORAL TABLET 619933 AZITHROMY SPARKLE Inactive PREDNISONE 20 MG ORAL TABLET 2 tabs daily for 3 days, 1 tab daily for 3 days, 1/2 tab daily for 2 days PREDNISONE 20 MG ORAL TABLET 027060 PREDNISONE Inactive CEFDINIR 300 MG ORAL CAPSULE by mouth twice a day 2013 CEFDINIR 300 MG ORAL CAPSULE 662043 CEFDINIR Inactive TRIAMCINOLONE ACETONIDE 0.1 % EXTERNAL OINTMENT Apply to affected areas TID for up to 2 weeks TRIAMCINOLONE ACETON ZACH 0.1 % EXTERNAL OINTMENT 5686432 TRIAMCINOLONE ACETONIDE Inactive PREDNISONE 20 MG ORAL TABLET 2 tabs daily for 3 days, 1 tab daily for 3 days, 1/2 tab daily for 2 days PREDNISONE 20 MG ORAL T ABLET 710244 PREDNISONE Inactive BACTRIM DS 800-160 MG ORAL TABLET 1 po BID x 7 days 29/04/10 BACTRIM DS 800-160 MG ORAL TABLET 739324 SULFAMETHOXAZOLE-TRIMETHOP RIM Inactive CIPRO 500 MG ORAL TABLET 1 tablet by mouth twice daily CIPRO 500 MG ORAL TABLET 053900 CIPROFLOXACIN HCL Inactive AZITHROMYCIN 250 MG ORAL TABLET 2 po qd x 1 day, then 1 po q d x 4 days AZITHROMYCIN 250 MG ORAL TABLET 155057 AZITHROMY SPARKLE Inactive FLAGYL 500 MG ORAL TABLET 1 tablet by mouth bid 04/13 FLAGYL 500 MG ORAL TABLET 552540 METRONIDAZOLE Inactive AZITHROMYCIN 250 MG ORAL TABLET 2 po qd x 1 day, then 1 po q d x 4 days AZITHROMYCIN 250 MG ORAL TABLET 191196 AZITHROMY SPARKLE Inactive AMOXICILLIN 500 MG ORAL CAPSULE 2 po BID x 10 days 201 01/15/27 AMOXICILLIN 500 MG ORAL CAPSULE 934226 AMOXICILLIN Inactive AMOXICILLIN 500 MG ORAL CAPSULE 2 po BID x 14 days for H. Pylori AMOXICILLIN 500 MG ORAL CAPSULE 333301 AMOXICILLIN Inactive CLARITHROMYCIN 500 MG ORAL TABLET 1 tab po BID x 14 days CLARITHROMYCIN 500 MG ORAL TABLET 825453 CLARITHROMYCIN Inacti ve FLAGYL 500 MG ORAL TABLET 1 tablet by mouth bid 08/29 FLAGYL 500 MG ORAL TABLET 098915 METRONIDAZOLE Inactive PROTONIX 40 MG ORAL TABLET DELAYED RELEASE 1 pill by m outh daily, for acid reflux PROTONIX 40 MG ORAL TABLET DELAYED RELEAS E 022120 PANTOPRAZOLE SODIUM Inactive Immunizations Vaccine Administration Date [...] 11 .6-14.8 platelet count 215 10^3/MM^3 10*3/mm3 087-284 6489/11/28 erythrocyte (RBC) count 4.17 10^6/MM^3 10*6/mm3 3.80-5.8 0 lymphocytes as percent of blood leukocytes 23.9 % 20.5-51.1 monocytes as percent of blood leukocytes 7.3 % 1.7-9.3 neutrophils as percent of blood leukocytes 66.5 % 42.2-75.2 leukocyte count, blood 7.6 10^3/MM^3 10*3/mm3 4.6-10.2 Lab Report: Comp. Metabolic Panel, B-Typ e Natriuretic Peptide, Free Thyr ... - Chemistry chloride, serum 102 mmol/L 98-107 blood glucose 95 mg/dL 65-95 urea nitrogen, blood 11 mg/dL 7-18 creatinine, serum 0.61 mg/dL 0.60-1.30 alanine aminotransferase (SGPT), serum 28 U/L 12-78 aspartate aminotransferase (SGOT), serum 20 U/L 15-37 calcium, serum 9.3 mg/dL 8.5-10.1 bilirubin, serum, total 0.60 mg/dL 0.00-1.00 thyroxine, serum, free 0.70 ng/dL 0.59-1.17 TSH 2.81 m[iU]/mL 0.36-3.74 sodium, serum 138 mmol/L 656-649 6502/06/27 carbon dioxide, venous blood 30.3 mmol/L 21.0-32 .0 potassium, serum 4.4 mmol/L 3.5-5.2 Lab Report: Comp. Metabolic Panel, Eryth rocyte Sed Rate, UADIP W/MICRO, ... - Chemistry protein, total urine random Negative mg/dL Negative RBC, urine, dipstick 1+ Negative sodium, serum 139 mmol/L 128-025 0067/11/28 carbon dioxide, venous blood 26.0 mmol/L 21.0-32 [...] 5.0-8.5 Encounters Code Encounter Date Provider Facility CPT-73449 Level 3 Est. Patient 16:46:51 CDT Thomas reynolds DO [facility] CPT-06428 [id number] Vst-Est Level III 14:40:49 CDT Paul Hamlin MD [facility] CPT-88123 Level 4 Est. Patient 11:08:43 CDT Checo Conklin MD [facility]-14058 [id number] Vst-Est Level III 09:37:41 CDT Dangelo Rangel MD [facility] CPT-40203 Level 4 Est. Patient 08:57:51 RECLAMATION WORKER Checo Conklin MD [facility] CPT-52670 Level 3 Est. Patient 11:24:55 RECLAMATION WORKER Efren almendarez [facility] CPT-01463 Level 3 Est. Patient 13:05:44 CDT Paul Hamlin MD [facility] CPT-14146 Level 3 Est. Patient 11:29:55 CDT Checo Conklin MD [facility] CPT-66393 Level 4 Est. Patient 11:08:12 RECLAMATION WORKER Checo Conklin MD [facility] CPT-20459 Level 4 Est. Patient 16:06:48 RECLAMATION WORKER Checo Conklin MD [facility] CPT-36234 Level 3 Est. Patient 09:11:49 CDT Efren almendarez [facility] CPT-91523 Level 2 Est. Patient 19:53:27 CDT Tanner hill MD [facility] CPT-32921 Level 3 Est. Patient 09:15:34 CDT Efren almendarez [facility]-53314 Level 3 Est. Patient 11:28:51 RECLAMATION WORKER Efren almendarez APRN [facility] CPT-90110 Level 4 Est. Patient 13:55:46 RECLAMATION WORKER Checo Conklin MD [facility] CPT-88872 Level 4 Est. Patient 17:10:53 CDT Checo Conklin MD [facility] CPT-66460 Level 3 Est. Patient 15:56:22 CDT Checo Conklin MD [facility] CPT-48253 Level 3 Est. Patient 15:29:07 CDT Checo Conklin MD [facility] CPT-94395 Level 3 Est. Patient 14:38:41 CDT Checo Conklin MD [facility] CPT-85556 Level 3 Est. Patient 15:22:03 RECLAMATION WORKER Thomas reyonlds DO [facility] CPT-19732 Level 3 Est. Patient 13:34:17 RECLAMATION WORKER Checo Conklin MD [facility] CPT-10788 Level 3 Est. Patient 12:29:32 CDT Dangelo arroyo MD [facility] CPT-54279 Level 3 Est. Patient 16:53:02 CDT Checo Conklin MD [facility] CPT-63137 Level 3 Est. Patient 16:37:13 CDT Checo Conklin MD [facility] CPT-21342 Level 3 Est. Patient 16:16:59 CDT Paul Hamlin MD [facility] CPT-28516 Level 3 Est. Patient 14:20:13 CDT Dangelo arroyo MD [facility] CPT-65556 Level 4 Est. Patient 11:29:33 CDT Checo Conklni MD [facility] CPT-93221 Level 3 Est. Patient 17:08:31 CDT Checo Conklin MD [facility] CPT-47866 Level 3 Est. Patient 16:50:42 RECLAMATION WORKER Checo Conklin MD [facility] CPT-12855 Level 4 Est. Patient 09:26:08 RECLAMATION WORKER Checo Conklin MD [facility] CPT-56628 Level 3 Est. Patient 11:37:10 CDT Checo Conklin MD [facility] CPT-22836 Level 4 Est. Patient 14:07:38 CDT Checo Conklin MD [facility] CPT-41075 Level 3 Est. Patient 09:54:41 CDT Checo Conklin MD [facility] CPT-72937 Level 3 Est. Patient 11:10:54 CDT Paul Hamlin MD [facility] CPT-98703 Level 3 Est. Patient 14:16:56 RECLAMATION WORKER Checo Conklin MD [facility] CPT-19518 Level 3 Est. Patient 11:04:11 RECLAMATION WORKER Checo Conklin MD [facility] CPT-66590 Level 3 Est. Patient 17:09:26 CDT Dangelo arroyo MD [facility] CPT-35700 Level 3 Est. 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
--- OUTSIDE RECORDS SUMMARY | 2019-09-29 01:45 | XMS REPORT | Clinical Summary ---
Author Author Admin, Bethany Gonzales Organization [employer] Address Unknown Phone Unavailable Allergies, Adverse Reactions, [...] Conklin MD BRONCHITIS, ACUTE ICD-466.0 Inactive Checo galalgher MD Abdominal pain ICD-789.00 Inactive Checo ngo [...] RELEASE 1 daily with furosemide POTASSIUM CHLORIDE [id number] Active Paul Hamlin MD Active FUROSEMIDE 20 MG ORAL TABLET 1 daily for swelling FUROSEMIDE 39782080735 Active Paul Hamlin MD Active HYDROCHLOROTHIAZIDE 12.5 MG ORAL CAPSULE 1 po qd PRN Edema 01/10 HYDROCHLOROTHIAZIDE 14656615829 No Longer Active Paul Hamlin MD Active IBUPROFEN 800 MG ORAL TABLET 1 tab every 8 hours as needed for p ain IBUPROFEN 34406589676 No Longer Active Paul Hamlin MD Active PAROXETINE HCL 40 MG ORAL TABLET 1 po qd PAR OXETINE HCL 34669861592 Active Checo Conklin MD Active MIRALAX ORAL POWDER 8.5 to 17g po qd PRN Constipation POLYETHYLENE GLYCOL 3350 58065653020 No Longer Active Checo Conklin MD Active PROTONIX 40 MG ORAL TABLET DELAYED RELEASE 1 pill by m outh daily, for acid reflux PANTOPRAZOLE SODIUM 73136503288 No Longer Activ e Corry Méndez LPN Active FLAGYL 500 MG ORAL TABLET 1 tablet by mouth bid 08/29 METRONIDAZOLE 17427376744 No Longer Active Corry Méndez LPN Active CLARITHROMYCIN 500 MG ORAL TABLET 1 tab po BID x 14 days CLARITHROMYCIN 61320716808 No Longer Active Corry Méndez LPN Active AMOXICILLIN 500 MG ORAL CAPSULE 2 po BID x 14 days for H. Pylori AMOXICILLIN 04373220387 No Longer Active Corry Méndez LPN Active FLUTICASONE PROPIONATE 50 MCG/ACT NASAL SUSPENSION 2 s prays/nostril qd PRN Congestion/Allergies FLUTICASONE PROPIONATE 7143439000 9 No Longer Active Checo Conklin MD Active AMOXICILLIN 500 MG ORAL CAPSULE 2 po BID x 10 days 201 01/15/27 AMOXICILLIN 48652361031 No Longer Active Checo Conklin MD Activ e CLARITIN 10 MG ORAL TABLET 1 tablet by mouth daily as needed for allergies LORATADINE 35161230506 No Longer Active Checo Ortiz MD Active BACTRIM DS 800-160 MG ORAL TABLET 1 tab by mouth twice daily 201 12/19/26 TRIMETHOPRIM-SULFAMETHOXAZOLE 09119023912 No Longer Active Ragini Carrillo MD Active DIFLUCAN 150 MG ORAL TABLET 1 tablet by mouth qod 2015 FLUCONAZOLE 94590786997 No Longer Active Efren Medel MEDICAL BILLER/CODER Act mike AZITHROMYCIN 250 MG ORAL TABLET 2 po qd x 1 day, then 1 po q d x 4 days AZITHROMYCIN 03909298758 No Longer Active Efren flores MEDICAL BILLER/CODER Active FLAGYL 500 MG ORAL TABLET 1 tablet by mouth bid 04/13 METRONIDAZOLE 13264862938 No Longer Active Checo Conklin MD Acti ve FOCALIN XR 10 MG ORAL CAPSULE EXTENDED RELEASE 24 HOUR 1 po q a.m. DEXMETHYLPHENIDATE HCL 68381687398 Active Checo Conklin MD Active MAGNESIUM CITRATE 1.745 GM/30ML ORAL SOLUTION 150ml po BID P RN Constipation MAGNESIUM CITRATE 30082017615 No Longer Active Checo Conklin MD Active BACTROBAN 2 % EXTERNAL CREAM Apply to affected area BID for up to 10 days MUPIROCIN CALCIUM 64037628622 No Longer Active Checo Conklin MD Active HYDROCODONE-ACETAMINOPHEN 5-325 MG ORAL TABLET 1 tab b y mouth every 6 hours as needed HYDROCODONE-ACETAMINOPHEN 02457607717 No Longer Active Checo Conklin MD Active IBUPROFEN 800 MG ORAL TABLET 1 tab every 8 hours with food 03/20 IBUPROFEN 06293293785 No Longer Active Checo Conklin MD Active DIFLUCAN 150 MG ORAL TABLET 1 tablet by mouth if neede d, hold until symptoms start FLUCONAZOLE 74356123558 No Longer Active Checo Conklin MD Active BACTRIM DS 800-160 MG ORAL TABLET 1 tab by mouth twice daily 201 11/23/03 TRIMETHOPRIM-SULFAMETHOXAZOLE 86666897436 No Longer Active K bernice Méndez LPN Active HYDROCODONE-ACETAMINOPHEN 5-325 MG ORAL TABLET 0.5 to 1 tab by mouth every 6 hours as needed HYDROCODONE-ACETAMINOPHEN 55154200930 No Longer Active Checo Conklin MD Active ONDANSETRON 8 MG ORAL TABLET DISINTEGRATING place one tablet on tongue and allow to dissolve every 6 hours as needed for vomitting ONDANSETRON 84732302853 No Longer Active Checo Conklin MD Activ e COMPRO 25 MG RECTAL SUPPOSITORY insert or apply one garza ppository rectally as directed every 12 hours as needed for nausea PROCHLORPERAZINE 80593186007 No Longer Active Checo Conklin MD A ctive SUMATRIPTAN SUCCINATE 100 MG ORAL TABLET Take one PRN for migran e SUMATRIPTAN SUCCINATE 35311008075 No Longer Active Checo Conklin MD Active TRAVEL SICKNESS 25 MG ORAL TABLET CHEWABLE chew and sw allow one tablet every 6 hours as needed MECLIZINE HCL 98884763187 No Longer A ctive Checo Conklin MD Active BUPROPION HCL ER (SR) 100 MG ORAL TABLET EXTENDED RELE ASE 12 HOUR take one tablet by mouth one time daily for one week then take 1 two times daily BUPROPION HCL 21340174763 No Longer Active Checo gallagher MD Active TERBINAFINE HCL 250 MG ORAL TABLET take one table PO one time da moises TERBINAFINE HCL 21199042806 No Longer Active Checo Conklin MD Active METOCLOPRAMIDE HCL 10 MG ORAL TABLET take one PO tid PRN nausea METOCLOPRAMIDE HCL 04676223712 No Longer Active Checo Conklin MD Active DICLOFENAC SODIUM 75 MG ORAL TABLET DELAYED RELEASE 1 tablet by mouth twice daily PRN Knee pain DICLOFENAC SODIUM 25682565092 No Longer Active Checo Conklin MD Active LAMISIL 250 MG ORAL TABLET 1 po qd TERBINAFI NE HCL 34174653744 No Longer Active Checo Conklin MD Active REGLAN 10 MG ORAL TABLET 1 po TID PRN Nausea 3 METOCLOPRAMIDE HCL 43610180633 No Longer Active Checo Conklin MD Active CELEXA 20 MG ORAL TABLET 1 tablet by mouth daily 09/26 CITALOPRAM HYDROBROMIDE 92475118369 No Longer Active Checo Conklin MD Active AZITHROMYCIN 250 MG ORAL TABLET 2 po qd x 1 day, then 1 po q d x 4 days AZITHROMYCIN 73363449044 No Longer Active Checo Ortiz MD Active HYDROCODONE-ACETAMINOPHEN 5-325 MG ORAL TABLET 1 po q 6hr PRN Pa in HYDROCODONE-ACETAMINOPHEN 61701144393 No Longer Active Lenora Conklin MD Active PHENAZOPYRIDINE HCL 200 MG ORAL TABLET take 1 tab po TID for bladder pain PHENAZOPYRIDINE HCL 00172229702 No Longer Active Joe Conklin MD Active CIPRO 500 MG ORAL TABLET 1 tablet by mouth twice daily CIPROFLOXACIN HCL 20299361878 No Longer Active Dangelo Rangel MD Active HYDROCODONE-ACETAMINOPHEN 5-325 MG ORAL TABLET 1/2 to 1 po q 4 hours prn cough HYDROCODONE-ACETAMINOPHEN 36339674011 No Longer Activ candy Rangel MD Active BACTRIM DS 800-160 MG ORAL TABLET 1 po BID x 7 days 29/04/10 SULFAMETHOXAZOLE-TRIMETHOPRIM 49035404275 No Longer Active Checo Conklin MD Active PREDNISONE 20 MG ORAL TABLET 2 tabs daily for 3 days, 1 tab daily for 3 days, 1/2 tab daily for 2 days PREDNISONE 29809355726 No Longer Active Checo Conklin MD Active TRIAMCINOLONE ACETONIDE 0.1 % EXTERNAL OINTMENT Apply to affected areas TID for up to 2 weeks TRIAMCINOLONE ACETONIDE 55900813012 No Longer Active Checo Conklin MD Active CEFDINIR 300 MG ORAL CAPSULE by mouth twice a day 2013 CEFDINIR 62868656871 No Longer Active Dangelo Rangel MD Acti ve BUPROPION HCL ER (SMOKING DET) 150 MG ORAL TABLET EXTE NDED RELEASE 12 HOUR 1 a day for 1 week then 1 twice a day BUPROPION HCL (SMOKING DETER) 27099534385 No Longer Active Checo Conklin MD Active SIMVASTATIN 20 MG ORAL TABLET 1 po qd SIMVASTAT IN 96155009495 Active Checo Conklin MD Active CHANTIX STARTING MONTH KARTHIK 0.5 MG X 11 & 1 MG X 42 ORA L TABLET 0.5mg daily for 3 days, then 0.5mg BID for 4 days, then 1mg BID VARENICLINE TARTRATE 92115107790 No Longer Active Checo Conklin MD Activ e XANAX 0.5 MG ORAL TABLET 1 po BID PRN anxiety A LPRAZOLAM 52544976548 Active Thomas Marks DO Active CONCERTA 18 MG ORAL TABLET EXTENDED RELEASE 1 po q a.m. METHYLPHENIDATE HCL 78259886415 No Longer Active Checo Conklin MD Active AMBIEN 5 MG ORAL TABLET 1 po qHS PRN Insomnia Z OLPIDEM TARTRATE 87441172187 Active Checo Conklin MD Active TRAZODONE HCL 100 MG ORAL TABLET 0.5 to 1 po qHS PRN Insomnia 20 30/07/08 TRAZODONE HCL 34143987117 No Longer Active Checo Conklin MD Active FIORICET 325-50-40 MG TAB 1 tablet by mouth four times daily as needed [id number] 77146631546 No Longer Active Checo Conklin MD Active PHENERGAN CREAM* 25mg applied to wrist q6hr PRN Nausea PHENERGAN CREAM* No Longer Active Checo Conklin MD A ctive FLONASE 50 MCG/ACT NASAL SUSPENSION 1 spray each nostril am and hs FLUTICASONE PROPIONATE 54280665066 No Longer Active Checo Conklin MD Active ANTIPYRINE-BENZOCAINE 5.4-1.4 % OTIC SOLUTION 1-2 drops in affec yohannes ear BENZOCAINE-ANTIPYRINE 49650422123 No Longer Active Checo Conklin MD Active CEFDINIR 300 MG ORAL CAPSULE 1 po bid CEFDINIR 02361956053 No Longer Active Checo Conklin MD Active PREDNISONE 20 MG ORAL TABLET 2 tabs daily for 3 days, 1 tab daily for 3 days, 1/2 tab daily for 2 days PREDNISONE 39248277632 No Longer Active Checo Conklin MD Active AZITHROMYCIN 250 MG ORAL TABLET 2 po qd x 1 day, then 1 po q d x 4 days AZITHROMYCIN 30567638795 No Longer Active Checo Ortiz MD Active PREDNISONE 20 MG ORAL TABLET 2 tabs daily for 3 days, 1 tab daily for 3 days, 1/2 tab daily for 2 days PREDNISONE 28584912889 No Longer Active Checo Conklin MD Active ZITHROMAX Z-KARTHIK 250 MG ORAL TABLET 2 today, then 1 daily for 4 d ays AZITHROMYCIN 95594561428 No Longer Active Paul Hamlin MD Active FOCALIN XR 10 MG ORAL CAPSULE EXTENDED RELEASE 24 HOUR 1 po q a. m. DEXMETHYLPHENIDATE HCL 77260929516 No Longer Active Paul Hamlin MD Active PERCOCET 10-325 MG ORAL TABLET 1 tablet every 6 hours as needed for pain OXYCODONE-ACETAMINOPHEN 21187586508 No Longer Active Paul Hamlin MD Active LORTAB 5-500 MG ORAL TABLET 1/2 to 1 tablet by mouth e very 4 hours as needed for pain HYDROCODONE-ACETAMINOPHEN 35150367342 No Longer Active Checo Conklin MD Active FOCALIN XR 15 MG ORAL CAPSULE EXTENDED RELEASE 24 HOUR 1 po q a. m. DEXMETHYLPHENIDATE HCL 00138194873 No Longer Active Checo Conklin MD Active ZOFRAN ODT 4 MG ORAL TABLET DISINTEGRATING 1 po q6hr PRN Nausea ONDANSETRON 09664239531 No Longer Active Checo Conklin MD Active PERCOCET 5-325 MG ORAL TABLET 1 tablet by mouth every 6 hour s as needed OXYCODONE-ACETAMINOPHEN 77453180160 No Longer Active Checo Conklin MD Active PYRIDIUM 200 MG ORAL TABLET take 1 tab po TID prn urinary pain. PHENAZOPYRIDINE HCL 46316552625 No Longer Active Checo Joshua Active FLUCONAZOLE 150 MG ORAL TABLET take 1 tab po qday once FLUCONAZOLE 31826809635 No Longer Active Dangelo Rangel MD Acti ve CIPRO 500 MG ORAL TABLET 1 tablet by mouth twice daily CIPROFLOXACIN HCL 62590211008 No Longer Active Dangelo Rangel MD Active PYRIDIUM 200 MG ORAL TABLET take 1 tab po TID prn urinary pain. PYRIDIUM 200 MG ORAL TABLET 7752022 PHENAZOPYRIDINE HCL Inactive PERCOCET 5-325 MG ORAL TABLET 1 tablet by mouth every 6 hour s as needed PERCOCET 5-325 MG ORAL TABLET 7481387 OXYCODONE-ACETAMINOPHEN Inactive ZOFRAN ODT 4 MG ORAL TABLET DISINTEGRATING 1 po q6hr PRN Nausea ZOFRAN ODT 4 MG ORAL TABLET DISINTEGRATING 137823 ONDAN SETRON Inactive FOCALIN XR 15 MG [...] for pain PERCOCET 10-325 MG ORAL TABLET 0815838 OXYCODONE-ACETAMI NOPHEN Inactive FOCALIN XR 10 MG ORAL CAPSULE EXTENDED RELEASE 24 HOUR 1 po q a. m. FOCALIN XR 10 MG ORAL CAPSULE EXTENDED RELEASE 24 HOUR DEXMETHYLPHENIDATE HCL Inactive CEFDINIR 300 MG ORAL CAPSULE 1 po bid CEFDINI R 300 MG ORAL CAPSULE 458811 CEFDINIR Inactive ANTIPYRINE-BENZOCAINE 5.4-1.4 % OTIC SOLUTION 1-2 drops in affec yohannes ear ANTIPYRINE-BENZOCAINE 5.4-1.4 % OTIC SOLUTION BENZOCAINE-ANTIPYRINE Inactive FLONASE 50 MCG/ACT NASAL SUSPENSION 1 spray each nostril am and hs FLONASE 50 MCG/ACT NASAL SUSPENSION 2156392 FLUTICASONE PROPIONATE I nactive PHENERGAN CREAM* 25mg applied to wrist q6hr PRN Nausea PHENERGAN CREAM* Inactive FIORICET 325-50-40 MG TAB 1 tablet by mouth four times daily as needed FIORICET 325-50-40 MG TAB ACETAMINOPHEN-C AFF-BUTALBITAL Inactive TRAZODONE HCL 100 MG ORAL TABLET 0.5 to 1 po qHS PRN Insomnia 20 30/07/08 TRAZODONE HCL 100 MG ORAL TABLET 818195 TRAZODONE HCL Inactive CONCERTA 18 MG ORAL [...] cough HYDROCODONE-ACETAMINOPHEN 5-325 MG ORAL TABLET 8 19244 HYDROCODONE-ACETAMINOPHEN Inactive PHENAZOPYRIDINE HCL 200 MG ORAL TABLET take 1 tab po TID for bladder pain PHENAZOPYRIDINE HCL 200 MG ORAL TABLET 1693024 PHENAZOPYRIDINE HCL Inactive HYDROCODONE-ACETAMINOPHEN 5-325 MG ORAL TABLET 1 po q 6hr PRN Pa in HYDROCODONE-ACETAMINOPHEN 5-325 MG ORAL TABLET 771252 HYDROCODONE-ACETAMINOPHEN Inactive CELEXA 20 MG ORAL TABLET 1 tablet by mouth daily 09/26 CELEXA 20 MG ORAL TABLET 543756 CITALOPRAM HYDROBROMIDE Inactive REGLAN 10 MG ORAL TABLET 1 po TID PRN Nausea 3 REGLAN 10 MG ORAL TABLET 191385 METOCLOPRAMIDE HCL Inactive LAMISIL 250 MG ORAL TABLET 1 po qd L AMISIL 250 MG ORAL TABLET 883484 TERBINAFINE HCL Inactive DICLOFENAC SODIUM 75 MG ORAL TABLET DELAYED RELEASE 1 tablet by mouth twice daily PRN Knee pain DICLOFENAC SODIUM 75 MG ORAL TABLET DELAYED RELEASE 559294 DICLOFENAC SODIUM Inactive METOCLOPRAMIDE HCL 10 MG ORAL TABLET take one PO tid PRN nausea METOCLOPRAMIDE HCL 10 MG ORAL TABLET 737969 METOCLOPRAM ZACH HCL Inactive TERBINAFINE HCL 250 MG ORAL TABLET take one table PO one time da moises TERBINAFINE HCL 250 MG ORAL TABLET 503906 TERBINAFINE H CL Inactive BUPROPION HCL ER [...] SICKNESS 25 M G ORAL TABLET CHEWABLE 370079 MECLIZINE HCL Inactive SUMATRIPTAN SUCCINATE 100 MG ORAL TABLET Take one PRN for migran e SUMATRIPTAN SUCCINATE 100 MG ORAL TABLET 480024 SUMATRIPTAN SUCCINATE Inactive COMPRO 25 MG RECTAL SUPPOSITORY insert or apply one garza ppository rectally as directed every 12 hours as needed for nausea COMPRO 25 MG RECTAL SUPPOSITORY 301281 PROCHLORPERAZINE Inactive ONDANSETRON 8 MG ORAL TABLET DISINTEGRATING place one tablet on tongue and allow to dissolve every 6 hours as needed for vomitting ONDANSETRON 8 MG ORAL TABLET DISINTEGRATING 904098 ONDANSETRON Inactive HYDROCODONE-ACETAMINOPHEN 5-325 MG ORAL TABLET 0.5 to 1 tab by mouth every 6 hours as needed HYDROCODONE-ACETAMIN OPHEN 5-325 MG ORAL TABLET 648263 HYDROCODONE-ACETAMINOPHEN Inactive BACTRIM DS 800-160 MG ORAL TABLET 1 tab by mouth twice daily 201 11/23/03 BACTRIM DS 800-160 MG ORAL TABLET 447694 TRIMETHOPRIM-SULFAMETHOXAZOLE Inactive DIFLUCAN 150 MG ORAL TABLET 1 tablet by mouth if neede d, hold until symptoms start DIFLUCAN 150 MG ORAL TABLET 547235 FLUCONAZ OLE Inactive IBUPROFEN 800 MG ORAL TABLET 1 tab every 8 hours with food 03/20 IBUPROFEN 800 MG ORAL TABLET 437546 IBUPROFEN [place] ctive HYDROCODONE-ACETAMINOPHEN 5-325 MG ORAL TABLET 1 tab b y mouth every 6 hours as needed HYDROCODONE-ACETAMINOPHEN 5-325 MG ORAL TABLET 739398 HYDROCODONE-ACETAMINOPHEN Inactive BACTROBAN 2 % EXTERNAL CREAM Apply to affected area BID for up to 10 days BACTROBAN 2 % EXTERNAL CREAM 088824 MUPIROCIN CA LCIUM Inactive MAGNESIUM CITRATE 1.745 GM/30ML ORAL SOLUTION 150ml po BID P RN Constipation MAGNESIUM CITRATE 1.745 GM/30ML ORAL SOLUTION 10 54632 MAGNESIUM CITRATE Inactive DIFLUCAN 150 MG ORAL TABLET 1 tablet by mouth qod 2015 DIFLUCAN 150 MG ORAL TABLET 671575 FLUCONAZOLE Inactive BACTRIM DS 800-160 MG ORAL TABLET 1 tab by mouth twice daily 201 12/19/26 BACTRIM DS 800-160 MG ORAL TABLET 385117 TRIMETHOPRIM-SULFAMETHOXAZOLE Inactive CLARITIN 10 MG ORAL TABLET 1 tablet by mouth daily as needed for allergies CLARITIN 10 MG ORAL TABLET 557484 LORATADINE I nactive FLUTICASONE PROPIONATE 50 MCG/ACT NASAL SUSPENSION 2 s prays/nostril qd PRN Congestion/Allergies FLUTICASONE PROPION ATE 50 MCG/ACT NASAL SUSPENSION 8461657 FLUTICASONE PROPIONATE Inactive MIRALAX ORAL POWDER 8.5 to 17g po qd PRN Constipation MIRALAX ORAL POWDER 656216 POLYETHYLENE GLYCOL 3350 Inactive IBUPROFEN 800 MG ORAL TABLET 1 tab every 8 hours as needed for p ain IBUPROFEN 800 MG ORAL TABLET 883788 IBUPROFEN [place] ctive HYDROCHLOROTHIAZIDE 12.5 MG ORAL CAPSULE 1 po qd PRN Edema 01/10 HYDROCHLOROTHIAZIDE 12.5 MG ORAL CAPSULE 978261 HYDROCH LOROTHIAZIDE Inactive CIPRO 500 MG ORAL TABLET 1 tablet by mouth twice daily CIPRO 500 MG ORAL TABLET 423045 CIPROFLOXACIN HCL Inactive FLUCONAZOLE 150 MG ORAL TABLET take 1 tab po qday once FLUCONAZOLE 150 MG ORAL TABLET 077702 FLUCONAZOLE Inactive ZITHROMAX Z-KARTHIK 250 MG ORAL TABLET 2 today, then 1 daily for 4 d ays ZITHROMAX Z-KARTHIK 250 MG ORAL TABLET 107651 AZITHROMYCIN Inactive PREDNISONE 20 MG ORAL TABLET 2 tabs daily for 3 days, 1 tab daily for 3 days, 1/2 tab daily for 2 days PREDNISONE 20 MG ORAL T ABLET 913112 PREDNISONE Inactive AZITHROMYCIN 250 MG ORAL TABLET 2 po qd x 1 day, then 1 po q d x 4 days AZITHROMYCIN 250 MG ORAL TABLET 152478 AZITHROMY SPARKLE Inactive PREDNISONE 20 MG ORAL TABLET 2 tabs daily for 3 days, 1 tab daily for 3 days, 1/2 tab daily for 2 days PREDNISONE 20 MG ORAL TABLET 362771 PREDNISONE Inactive CEFDINIR 300 MG ORAL CAPSULE by mouth twice a day 2013 CEFDINIR 300 MG ORAL CAPSULE 957008 CEFDINIR Inactive TRIAMCINOLONE ACETONIDE 0.1 % EXTERNAL OINTMENT Apply to affected areas TID for up to 2 weeks TRIAMCINOLONE ACETON ZACH 0.1 % EXTERNAL OINTMENT 4929410 TRIAMCINOLONE ACETONIDE Inactive PREDNISONE 20 MG ORAL TABLET 2 tabs daily for 3 days, 1 tab daily for 3 days, 1/2 tab daily for 2 days PREDNISONE 20 MG ORAL T ABLET 882426 PREDNISONE Inactive BACTRIM DS 800-160 MG ORAL TABLET 1 po BID x 7 days 29/04/10 BACTRIM DS 800-160 MG ORAL TABLET 154430 SULFAMETHOXAZOLE-TRIMETHOP RIM Inactive CIPRO 500 MG ORAL TABLET 1 tablet by mouth twice daily CIPRO 500 MG ORAL TABLET 842190 CIPROFLOXACIN HCL Inactive AZITHROMYCIN 250 MG ORAL TABLET 2 po qd x 1 day, then 1 po q d x 4 days AZITHROMYCIN 250 MG ORAL TABLET 717152 AZITHROMY SPARKLE Inactive FLAGYL 500 MG ORAL TABLET 1 tablet by mouth bid 04/13 FLAGYL 500 MG ORAL TABLET 929532 METRONIDAZOLE Inactive AZITHROMYCIN 250 MG ORAL TABLET 2 po qd x 1 day, then 1 po q d x 4 days AZITHROMYCIN 250 MG ORAL TABLET 073242 AZITHROMY SPARKLE Inactive AMOXICILLIN 500 MG ORAL CAPSULE 2 po BID x 10 days 201 01/15/27 AMOXICILLIN 500 MG ORAL CAPSULE 228192 AMOXICILLIN Inactive AMOXICILLIN 500 MG ORAL CAPSULE 2 po BID x 14 days for H. Pylori AMOXICILLIN 500 MG ORAL CAPSULE 234234 AMOXICILLIN Inactive CLARITHROMYCIN 500 MG ORAL TABLET 1 tab po BID x 14 days CLARITHROMYCIN 500 MG ORAL TABLET 903571 CLARITHROMYCIN Inacti ve FLAGYL 500 MG ORAL TABLET 1 tablet by mouth bid 08/29 FLAGYL 500 MG ORAL TABLET 477884 METRONIDAZOLE Inactive PROTONIX 40 MG ORAL TABLET DELAYED RELEASE 1 pill by m outh daily, for acid reflux PROTONIX 40 MG ORAL TABLET DELAYED RELEAS E 334174 PANTOPRAZOLE SODIUM Inactive Immunizations Vaccine Administration Date [...] 11 .6-14.8 platelet count 215 10^3/MM^3 10*3/mm3 236-145 7970/11/28 erythrocyte (RBC) count 4.17 10^6/MM^3 10*6/mm3 3.80-5.8 [...] 2.81 m[iU]/mL 0.36-3.74 sodium, serum 138 mmol/L 854-308 2490/06/27 carbon dioxide, venous blood 30.3 mmol/L 21.0-32 .0 potassium, serum 4.4 mmol/L 3.5-5.2 Lab Report: Comp. Metabolic Panel, Eryth rocyte Sed Rate, UADIP W/MICRO, ... - Chemistry protein, total urine random Negative mg/dL Negative RBC, urine, dipstick 1+ Negative sodium, serum 139 mmol/L 844-237 0268/11/28 carbon dioxide, venous blood 26.0 mmol/L 21.0-32 [...] 5.0-8.5 Encounters Code Encounter Date Provider Facility CPT-94922 Level 3 Est. Patient 16:46:51 CDT Thomas reynolds DO [facility] CPT-34549 [id number] Vst-Est Level III 14:40:49 CDT Paul Hamlin MD [facility] CPT-51755 Level 4 Est. Patient 11:08:43 CDT Checo Conklin MD [facility] CPT-45324 [id number] Vst-Est Level III 09:37:41 CDT Dangelo Rangel MD [facility] CPT-75864 Level 4 Est. Patient 08:57:51 EMPLOYMENT COACH Checo Conklin MD [facility] CPT-16624 Level 3 Est. Patient 11:24:55 EMPLOYMENT COACH Efren almendarez APRN [facility] CPT-29315 Level 3 Est. Patient 13:05:44 CDT Paul Hamlin MD [facility] CPT-99085 Level 3 Est. Patient 11:29:55 CDT Checo Conklin MD [facility] CPT-04906 Level 4 Est. Patient 11:08:12 EMPLOYMENT COACH Checo Conklin MD [facility] CPT-68742 Level 4 Est. Patient 16:06:48 EMPLOYMENT COACH Checo Conklin MD [facility] CPT-28249 Level 3 Est. Patient 09:11:49 CDT Efren Valenzuela razell [facility] CPT-51408 Level 2 Est. Patient 19:53:27 CDT Tanner hill MD [facility] CPT-04667 Level 3 Est. Patient 09:15:34 CDT Efren Nicolas almendarez [facility] CPT-40290 Level 3 Est. Patient 11:28:51 EMPLOYMENT COACH Efren Nicolas almendarez [facility] CPT-51844 Level 4 Est. Patient 13:55:46 EMPLOYMENT COACH Checo Conklin MD [facility] CPT-53108 Level 4 Est. Patient 17:10:53 CDT Checo Conklin MD [facility] CPT-96168 Level 3 Est. Patient 15:56:22 CDT Checo Conklin MD [facility] CPT-83150 Level 3 Est. Patient 15:29:07 CDT Checo Conklin MD [facility] CPT-35763 Level 3 Est. Patient 14:38:41 CDT Checo Conklin MD [facility] CPT-12981 Level 3 Est. Patient 15:22:03 EMPLOYMENT COACH Thomas reynolds DO [facility] CPT-04310 Level 3 Est. Patient 13:34:17 EMPLOYMENT COACH Checo Conklin MD [facility] CPT-59588 Level 3 Est. Patient 12:29:32 CDT Dangelo arroyo MD [facility] CPT-68827 Level 3 Est. Patient 16:53:02 CDT Checo Conklin MD [facility] CPT-54446 Level 3 Est. Patient 16:37:13 CDT Checo Conklin MD [facility] CPT-68532 Level 3 Est. Patient 16:16:59 CDT Paul Hamlin MD [facility]-60870 Level 3 Est. Patient 14:20:13 CDT Dangelo arroyo MD [facility] CPT-73282 Level 4 Est. Patient 11:29:33 CDT Checo Conklin MD [facility] CPT-35189 Level 3 Est. Patient 17:08:31 CDT Checo Conklin MD [facility] CPT-08385 Level 3 Est. Patient 16:50:42 EMPLOYMENT COACH Checo Conklin MD [facility] CPT-25449 Level 4 Est. Patient 09:26:08 EMPLOYMENT COACH Checo Conklin MD [facility] CPT-30743 Level 3 Est. Patient 11:37:10 CDT Checo Conklin MD [facility] CPT-31807 Level 4 Est. Patient 14:07:38 CDT Checo Conklin MD [facility] CPT-02257 Level 3 Est. Patient 09:54:41 CDT Checo Conklin MD [facility] CPT-57159 Level 3 Est. Patient 11:10:54 CDT Paul Hamlin MD [facility] CPT-27077 Level 3 Est. Patient 14:16:56 EMPLOYMENT COACH Checo Conklin MD [facility] CPT-53543 Level 3 Est. Patient 11:04:11 EMPLOYMENT COACH Checo Conklin MD [facility] CPT-66888 Level 3 Est. Patient 17:09:26 CDT Dangelo arroyo MD [facility] CPT-86817 Level 3 Est. Patient 16:54:37 CDT Checo Conklin MD [facility] Procedures Code Procedure Name Date Entry Date Standard Desc ription CPT-37254 Abx/Therapy Injection 18:17:48 CDT CPT-J2550 Phenergan 25 mg (Promethazine) 16:48:23 CDT CPT-J1885 Toradol 60 mg 16:48:23 CDT CPT-73123 Wrist, right, comp 3V - XRAY USE ONLY 09:24:31 CDT CPT-65681 Abd compl w upright - XRAY USE ONLY 1 1:36:54 EMPLOYMENT COACH CPT-26672 UA w micro - LAB USE ONLY 17:06:46 CDT 2015 CPT-53783 BHCG Qual - LAB USE ONLY 17:06:46 CDT 05/06 CPT-08072 CMP - LAB USE ONLY 17:06:46 CDT CPT-30255 CBC with Diff - LAB USE ONLY 17:06:45 CDT 2 CPT-38962 Venipuncture Draw Fee 17:06:45 CDT CPT-LR Lesion Removal 19:53:27 CDT CPT-OV Office Visit 11:31:28 CDT CPT-53611 Tubersol 09:39:29 CDT CPT-J2550 Phenergan 25 mg (Promethazine) 13:59:02 EMPLOYMENT COACH CPT-J1885 Toradol 60 mg (Ketorolac) 13:59:02 EMPLOYMENT COACH 2012
--- OUTSIDE RECORDS SUMMARY | 2019-09-29 01:45 | XMS REPORT | Clinical Summary ---
Author Author Admin, Bethany Gonzales Organization [facility] Address Unknown Phone Unavailable Allergies, Adverse Reactions, [...] TABLET 1 po qd PAR OXETINE HCL [id number] Active Checo Conklin MD Active MIRALAX ORAL POWDER 8.5 to 17g po qd PRN Constipation POLYETHYLENE GLYCOL 3350 [id number] No Longer Active Checo Conklin MD Active PROTONIX 40 MG ORAL TABLET DELAYED RELEASE 1 pill by m outh daily, for acid reflux PANTOPRAZOLE SODIUM 97324699179 No Longer Activ e Corry Méndez LPN Active FLAGYL 500 MG ORAL TABLET 1 tablet by mouth bid 08/29 METRONIDAZOLE 68748617364 No Longer Active Corry Méndez LPN Active CLARITHROMYCIN 500 MG ORAL TABLET 1 tab po BID x 14 days CLARITHROMYCIN 59015810353 No Longer Active Corry Méndez LPN Active AMOXICILLIN 500 MG ORAL CAPSULE 2 po BID x 14 days for H. Pylori AMOXICILLIN 26251442536 No Longer Active Corry Méndez LPN Active FLUTICASONE PROPIONATE 50 MCG/ACT NASAL SUSPENSION 2 s prays/nostril qd PRN Congestion/Allergies FLUTICASONE PROPIONATE 8791267081 9 No Longer Active Checo Conklin MD Active AMOXICILLIN 500 MG ORAL CAPSULE 2 po BID x 10 days 201 01/15/27 AMOXICILLIN 51561272479 No Longer Active Checo Conklin MD Activ e CLARITIN 10 MG ORAL TABLET 1 tablet by mouth daily as needed for allergies LORATADINE 24134889100 No Longer Active Checo Ortiz MD Active BACTRIM DS 800-160 MG ORAL TABLET 1 tab by mouth twice daily 201 12/19/26 TRIMETHOPRIM-SULFAMETHOXAZOLE 13019321557 No Longer Active Ragini Carrillo MD Active DIFLUCAN 150 MG ORAL TABLET 1 tablet by mouth qod 2015 FLUCONAZOLE 00430835673 No Longer Active Efren Medel APRN Act mike AZITHROMYCIN 250 MG ORAL TABLET 2 po qd x 1 day, then 1 po q d x 4 days AZITHROMYCIN 41704189949 No Longer Active Efrne flores APRN Active FLAGYL 500 MG ORAL TABLET 1 tablet by mouth bid 04/13 METRONIDAZOLE 51788235649 No Longer Active Checo Conklin MD Acti ve FOCALIN XR 10 MG ORAL CAPSULE EXTENDED RELEASE 24 HOUR 1 po q a.m. DEXMETHYLPHENIDATE HCL 35374520003 Active Checo Conklin MD Active MAGNESIUM CITRATE 1.745 GM/30ML ORAL SOLUTION 150ml po BID P RN Constipation MAGNESIUM CITRATE 01042378789 No Longer Active Checo Conklin MD Active BACTROBAN 2 % EXTERNAL CREAM Apply to affected area BID for up to 10 days MUPIROCIN CALCIUM 54536395737 No Longer Active Checo Conklin MD Active HYDROCODONE-ACETAMINOPHEN 5-325 MG ORAL TABLET 1 tab b y mouth every 6 hours as needed HYDROCODONE-ACETAMINOPHEN 34580363190 No Longer Active Checo Conklin MD Active IBUPROFEN 800 MG ORAL TABLET 1 tab every 8 hours with food 03/20 IBUPROFEN 87545153922 No Longer Active Checo Conklin MD Active DIFLUCAN 150 MG ORAL TABLET 1 tablet by mouth if neede d, hold until symptoms start FLUCONAZOLE 19183108190 No Longer Active Checo Conklin MD Active BACTRIM DS 800-160 MG ORAL TABLET 1 tab by mouth twice daily 201 11/23/03 TRIMETHOPRIM-SULFAMETHOXAZOLE 71224011152 No Longer Active K bernice Méndez, REGISTERED RESPIRATORY TECHNICIAN Active HYDROCODONE-ACETAMINOPHEN 5-325 MG ORAL TABLET 0.5 to 1 tab by mouth every 6 hours as needed HYDROCODONE-ACETAMINOPHEN 75762179144 No Longer Active Checo Conklin MD Active ONDANSETRON 8 MG ORAL TABLET DISINTEGRATING place one tablet on tongue and allow to dissolve every 6 hours as needed for vomitting ONDANSETRON 65967811659 No Longer Active Checo Conklin MD Activ e COMPRO 25 MG RECTAL SUPPOSITORY insert or apply one garza ppository rectally as directed every 12 hours as needed for nausea PROCHLORPERAZINE 72097182397 No Longer Active Checo Conklin MD A ctive SUMATRIPTAN SUCCINATE 100 MG ORAL TABLET Take one PRN for migran e SUMATRIPTAN SUCCINATE 38851553459 No Longer Active Checo Conklin MD Active TRAVEL SICKNESS 25 MG ORAL TABLET CHEWABLE chew and sw allow one tablet every 6 hours as needed MECLIZINE HCL 06919040416 No Longer A ctive Checo Conklin MD Active BUPROPION HCL ER (SR) 100 MG ORAL TABLET EXTENDED RELE ASE 12 HOUR take one tablet by mouth one time daily for one week then take 1 two times daily BUPROPION HCL 11442920965 No Longer Active Checo gallagher MD Active TERBINAFINE HCL 250 MG ORAL TABLET take one table PO one time da moises TERBINAFINE HCL 26581713034 No Longer Active Checo Conklin MD Active METOCLOPRAMIDE HCL 10 MG ORAL TABLET take one PO tid PRN nausea METOCLOPRAMIDE HCL 26587315150 No Longer Active Checo Conklin MD Active DICLOFENAC SODIUM 75 MG ORAL TABLET DELAYED RELEASE 1 tablet by mouth twice daily PRN Knee pain DICLOFENAC SODIUM 73117782109 No Longer Active Checo Conklin MD Active LAMISIL 250 MG ORAL TABLET 1 po qd TERBINAFI NE HCL 87084854989 No Longer Active Checo Conklin MD Active REGLAN 10 MG ORAL TABLET 1 po TID PRN Nausea 3 METOCLOPRAMIDE HCL 57510814839 No Longer Active Checo Conklin MD Active CELEXA 20 MG ORAL TABLET 1 tablet by mouth daily 09/26 CITALOPRAM HYDROBROMIDE 03982219897 No Longer Active Checo Conklin MD Active AZITHROMYCIN 250 MG ORAL TABLET 2 po qd x 1 day, then 1 po q d x 4 days AZITHROMYCIN 93779134334 No Longer Active Checo Ortiz MD Active HYDROCODONE-ACETAMINOPHEN 5-325 MG ORAL TABLET 1 po q 6hr PRN Pa in HYDROCODONE-ACETAMINOPHEN 92861618690 No Longer Active Lenora Conklin MD Active PHENAZOPYRIDINE HCL 200 MG ORAL TABLET take 1 tab po TID for bladder pain PHENAZOPYRIDINE HCL 99825962177 No Longer Active Joe Conklin MD Active CIPRO 500 MG ORAL TABLET 1 tablet by mouth twice daily CIPROFLOXACIN HCL 51220355252 No Longer Active Dangelo Rangel MD Active HYDROCODONE-ACETAMINOPHEN 5-325 MG ORAL TABLET 1/2 to 1 po q 4 hours prn cough HYDROCODONE-ACETAMINOPHEN 24946880196 No Longer Activ e Dangelo Rangel MD Active BACTRIM DS 800-160 MG ORAL TABLET 1 po BID x 7 days 29/04/10 SULFAMETHOXAZOLE-TRIMETHOPRIM 78885751557 No Longer Active Checo Conklin MD Active PREDNISONE 20 MG ORAL TABLET 2 tabs daily for 3 days, 1 tab daily for 3 days, 1/2 tab daily for 2 days PREDNISONE 27296139742 No Longer Active Checo Conklin MD Active TRIAMCINOLONE ACETONIDE 0.1 % EXTERNAL OINTMENT Apply to affected areas TID for up to 2 weeks TRIAMCINOLONE ACETONIDE 19659997467 No Longer Active Checo Conklin MD Active CEFDINIR 300 MG ORAL CAPSULE by mouth twice a day 2013 CEFDINIR 56343634559 No Longer Active Dangelo Rangel MD Acti ve BUPROPION HCL ER (SMOKING DET) 150 MG ORAL TABLET EXTE NDED RELEASE 12 HOUR 1 a day for 1 week then 1 twice a day BUPROPION HCL (SMOKING DETER) 88895470111 No Longer Active Checo Conklin MD Active SIMVASTATIN 20 MG ORAL TABLET 1 po qd SIMVASTAT IN 71568452484 Active Checo Conklin MD Active CHANTIX STARTING MONTH KARTHIK 0.5 MG X 11 & 1 MG X 42 ORA L TABLET 0.5mg daily for 3 days, then 0.5mg BID for 4 days, then 1mg BID VARENICLINE TARTRATE 54755796343 No Longer Active Checo Conklin MD Activ e XANAX 0.5 MG ORAL TABLET 1 po BID PRN anxiety A LPRAZOLAM 42157891410 Active Checo Conklin MD Active CONCERTA 18 MG ORAL TABLET EXTENDED RELEASE 1 po q a.m. METHYLPHENIDATE HCL 19742533027 No Longer Active Checo Conklin MD Active AMBIEN 5 MG ORAL TABLET 1 po qHS PRN Insomnia Z OLPIDEM TARTRATE 56190480707 Active Checo Conklin MD Active TRAZODONE HCL 100 MG ORAL TABLET 0.5 to 1 po qHS PRN Insomnia 20 30/07/08 TRAZODONE HCL 09097823157 No Longer Active Checo Conklin MD Active FIORICET 325-50-40 MG TAB 1 tablet by mouth four times daily as needed [id number] 68213704531 No Longer Active Checo Conklin MD Active PHENERGAN CREAM* 25mg applied to wrist q6hr PRN Nausea PHENERGAN CREAM* No Longer Active Checo Conklin MD A ctive FLONASE 50 MCG/ACT NASAL SUSPENSION 1 spray each nostril am and hs FLUTICASONE PROPIONATE 80435565808 No Longer Active Checo Conklin MD Active ANTIPYRINE-BENZOCAINE 5.4-1.4 % OTIC SOLUTION 1-2 drops in affec yohannes ear BENZOCAINE-ANTIPYRINE 57203345059 No Longer Active Checo Conklin MD Active CEFDINIR 300 MG ORAL CAPSULE 1 po bid CEFDINIR 06213851723 No Longer Active Checo Conklin MD Active PREDNISONE 20 MG ORAL TABLET 2 tabs daily for 3 days, 1 tab daily for 3 days, 1/2 tab daily for 2 days PREDNISONE 14171064780 No Longer Active Checo Conklin MD Active AZITHROMYCIN 250 MG ORAL TABLET 2 po qd x 1 day, then 1 po q d x 4 days AZITHROMYCIN 14662016884 No Longer Active Checo Ortiz MD Active PREDNISONE 20 MG ORAL TABLET 2 tabs daily for 3 days, 1 tab daily for 3 days, 1/2 tab daily for 2 days PREDNISONE 71472074035 No Longer Active Checo Conklin MD Active ZITHROMAX Z-KARTHIK 250 MG ORAL TABLET 2 today, then 1 daily for 4 d ays AZITHROMYCIN 47569027777 No Longer Active Paul Hamlin MD Active FOCALIN XR 10 MG ORAL CAPSULE EXTENDED RELEASE 24 HOUR 1 po q a. m. DEXMETHYLPHENIDATE HCL 71518602797 No Longer Active Paul Hamlin MD Active PERCOCET 10-325 MG ORAL TABLET 1 tablet every 6 hours as needed for pain OXYCODONE-ACETAMINOPHEN 31429396588 No Longer Active Paul Hamlin MD Active LORTAB 5-500 MG ORAL TABLET 1/2 to 1 tablet by mouth e very 4 hours as needed for pain HYDROCODONE-ACETAMINOPHEN 94873873036 No Longer Active Checo Conklin MD Active FOCALIN XR 15 MG ORAL CAPSULE EXTENDED RELEASE 24 HOUR 1 po q a. m. DEXMETHYLPHENIDATE HCL 19804736804 No Longer Active Checo Conklin MD Active ZOFRAN ODT 4 MG ORAL TABLET DISINTEGRATING 1 po q6hr PRN Nausea ONDANSETRON 22899627583 No Longer Active Checo Conklin MD Active PERCOCET 5-325 MG ORAL TABLET 1 tablet by mouth every 6 hour s as needed OXYCODONE-ACETAMINOPHEN 26798763622 No Longer Active Checo Conklin MD Active PYRIDIUM 200 MG ORAL TABLET take 1 tab po TID prn urinary pain. PHENAZOPYRIDINE HCL 81979328738 No Longer Active Checo Joshua Active FLUCONAZOLE 150 MG ORAL TABLET take 1 tab po qday once FLUCONAZOLE 97979219316 No Longer Active Dangelo Rangel MD Acti ve CIPRO 500 MG ORAL TABLET 1 tablet by mouth twice daily CIPROFLOXACIN HCL 46269732950 No Longer Active Dangelo Rangel MD Active PYRIDIUM 200 MG ORAL TABLET take 1 tab po TID prn urinary pain. PYRIDIUM 200 MG ORAL TABLET 0114943 PHENAZOPYRIDINE HCL Inactive PERCOCET 5-325 MG ORAL TABLET 1 tablet by mouth every 6 hour s as needed PERCOCET 5-325 MG ORAL TABLET 0661881 OXYCODONE-ACETAMINOPHEN Inactive ZOFRAN ODT 4 MG ORAL TABLET DISINTEGRATING 1 po q6hr PRN Nausea ZOFRAN ODT 4 MG ORAL TABLET DISINTEGRATING 104130 ONDAN SETRON Inactive FOCALIN XR 15 MG ORAL CAPSULE EXTENDED RELEASE 24 HOUR 1 po q a. m. FOCALIN XR 15 MG ORAL CAPSULE EXTENDED RELEASE 24 HOUR DEXMETHYLPHENIDATE HCL Inactive LORTAB 5-500 MG ORAL TABLET 1/2 to 1 tablet by mouth e very 4 hours as needed for pain LORTAB 5-500 MG ORAL TABLET 465747 HYDROCODONE-ACETAMINOPHEN Inactive PERCOCET 10-325 MG ORAL TABLET 1 tablet every 6 hours as needed for pain PERCOCET 10-325 MG ORAL TABLET 1721709 OXYCODONE-ACETAMI NOPHEN Inactive FOCALIN XR 10 MG ORAL CAPSULE EXTENDED RELEASE 24 HOUR 1 po q a. m. FOCALIN XR 10 MG ORAL CAPSULE EXTENDED RELEASE 24 HOUR DEXMETHYLPHENIDATE HCL Inactive CEFDINIR 300 MG ORAL CAPSULE 1 po bid CEFDINI R 300 MG ORAL CAPSULE 331170 CEFDINIR Inactive ANTIPYRINE-BENZOCAINE 5.4-1.4 % OTIC SOLUTION 1-2 drops in affec yohannes ear ANTIPYRINE-BENZOCAINE 5.4-1.4 % OTIC SOLUTION 570585 BENZOCAINE-ANTIPYRINE Inactive FLONASE 50 MCG/ACT NASAL SUSPENSION 1 spray each nostril am and hs FLONASE 50 MCG/ACT NASAL SUSPENSION 3406514 FLUTICASONE PROPIONATE I nactive PHENERGAN CREAM* 25mg applied to wrist q6hr PRN Nausea PHENERGAN CREAM* Inactive FIORICET 325-50-40 MG TAB 1 tablet by mouth four times daily as needed FIORICET 325-50-40 MG TAB ACETAMINOPHEN-C AFF-BUTALBITAL Inactive TRAZODONE HCL 100 MG ORAL TABLET 0.5 to 1 po qHS PRN Insomnia 20 30/07/08 TRAZODONE HCL 100 MG ORAL TABLET 662906 TRAZODONE HCL Inactive CONCERTA 18 MG ORAL [...] cough HYDROCODONE-ACETAMINOPHEN 5-325 MG ORAL TABLET 8 79735 HYDROCODONE-ACETAMINOPHEN Inactive PHENAZOPYRIDINE HCL 200 MG ORAL TABLET take 1 tab po TID for bladder pain PHENAZOPYRIDINE HCL 200 MG ORAL TABLET 3603085 PHENAZOPYRIDINE HCL Inactive HYDROCODONE-ACETAMINOPHEN 5-325 MG ORAL TABLET 1 po q 6hr PRN Pa in HYDROCODONE-ACETAMINOPHEN 5-325 MG ORAL TABLET 295973 HYDROCODONE-ACETAMINOPHEN Inactive CELEXA 20 MG ORAL TABLET 1 tablet by mouth daily 09/26 CELEXA 20 MG ORAL TABLET 527050 CITALOPRAM HYDROBROMIDE Inactive REGLAN 10 MG ORAL TABLET 1 po TID PRN Nausea 3 REGLAN 10 MG ORAL TABLET 609794 METOCLOPRAMIDE HCL Inactive LAMISIL 250 MG ORAL TABLET 1 po qd L AMISIL 250 MG ORAL TABLET 612263 TERBINAFINE HCL Inactive DICLOFENAC SODIUM 75 MG ORAL TABLET DELAYED RELEASE 1 tablet by mouth twice daily PRN Knee pain DICLOFENAC SODIUM 75 MG ORAL TABLET DELAYED RELEASE 208539 DICLOFENAC SODIUM Inactive METOCLOPRAMIDE HCL 10 MG ORAL TABLET take one PO tid PRN nausea METOCLOPRAMIDE HCL 10 MG ORAL TABLET 316682 METOCLOPRAM ZACH HCL Inactive TERBINAFINE HCL 250 MG ORAL TABLET take one table PO one time da moises TERBINAFINE HCL 250 MG ORAL TABLET 891185 TERBINAFINE H CL Inactive BUPROPION HCL ER [...] SICKNESS 25 M G ORAL TABLET CHEWABLE 815768 MECLIZINE HCL Inactive SUMATRIPTAN SUCCINATE 100 MG ORAL TABLET Take one PRN for migran e SUMATRIPTAN SUCCINATE 100 MG ORAL TABLET 120407 SUMATRIPTAN SUCCINATE Inactive COMPRO 25 MG RECTAL SUPPOSITORY insert or apply one garza ppository rectally as directed every 12 hours as needed for nausea COMPRO 25 MG RECTAL SUPPOSITORY 740105 PROCHLORPERAZINE Inactive ONDANSETRON 8 MG ORAL TABLET DISINTEGRATING place one tablet on tongue and allow to dissolve every 6 hours as needed for vomitting ONDANSETRON 8 MG ORAL TABLET DISINTEGRATING 136627 ONDANSETRON Inactive HYDROCODONE-ACETAMINOPHEN 5-325 MG ORAL TABLET 0.5 to 1 tab by mouth every 6 hours as needed HYDROCODONE-ACETAMIN OPHEN 5-325 MG ORAL TABLET 803839 HYDROCODONE-ACETAMINOPHEN Inactive BACTRIM DS 800-160 MG ORAL TABLET 1 tab by mouth twice daily 201 11/23/03 BACTRIM DS 800-160 MG ORAL TABLET 523185 TRIMETHOPRIM-SULFAMETHOXAZOLE Inactive DIFLUCAN 150 MG ORAL TABLET [...] as needed HYDROCODONE-ACETAMINOPHEN 5-325 MG ORAL TABLET 093984 HYDROCODONE-ACETAMINOPHEN Inactive BACTROBAN 2 % EXTERNAL CREAM Apply to affected area BID for up to 10 days BACTROBAN 2 % EXTERNAL CREAM 238233 MUPIROCIN CA LCIUM Inactive MAGNESIUM CITRATE 1.745 GM/30ML ORAL SOLUTION 150ml po BID P RN Constipation MAGNESIUM CITRATE 1.745 GM/30ML ORAL SOLUTION 10 47169 MAGNESIUM CITRATE Inactive DIFLUCAN 150 MG ORAL TABLET 1 tablet by mouth qod 2015 DIFLUCAN 150 MG ORAL TABLET 608890 FLUCONAZOLE Inactive BACTRIM DS 800-160 MG ORAL TABLET 1 tab by mouth twice daily 201 12/19/26 BACTRIM DS 800-160 MG ORAL TABLET 863609 TRIMETHOPRIM-SULFAMETHOXAZOLE Inactive CLARITIN 10 MG ORAL TABLET 1 tablet by mouth daily as needed for allergies CLARITIN 10 MG ORAL TABLET 930284 LORATADINE I nactive FLUTICASONE PROPIONATE 50 MCG/ACT NASAL SUSPENSION 2 s prays/nostril qd PRN Congestion/Allergies FLUTICASONE PROPION ATE 50 MCG/ACT NASAL SUSPENSION 8513352 FLUTICASONE PROPIONATE Inactive MIRALAX ORAL POWDER 8.5 to 17g po qd PRN Constipation MIRALAX ORAL POWDER 659112 POLYETHYLENE GLYCOL 3350 Inactive CIPRO 500 MG ORAL TABLET 1 tablet by mouth twice daily CIPRO 500 MG ORAL TABLET 437288 CIPROFLOXACIN HCL Inactive FLUCONAZOLE 150 MG ORAL TABLET take 1 tab po qday once FLUCONAZOLE 150 MG ORAL TABLET 342019 FLUCONAZOLE Inactive ZITHROMAX Z-KARTHIK 250 MG ORAL TABLET 2 today, then 1 daily for 4 d ays ZITHROMAX Z-KARTHIK 250 MG ORAL TABLET 465896 AZITHROMYCIN Inactive PREDNISONE 20 MG ORAL TABLET 2 tabs daily for 3 days, 1 tab daily for 3 days, 1/2 tab daily for 2 days PREDNISONE 20 MG ORAL T ABLET 308858 PREDNISONE Inactive AZITHROMYCIN 250 MG ORAL TABLET 2 po qd x 1 day, then 1 po q d x 4 days AZITHROMYCIN 250 MG ORAL TABLET 822703 AZITHROMY SPARKLE Inactive PREDNISONE 20 MG ORAL TABLET 2 tabs daily for 3 days, 1 tab daily for 3 days, 1/2 tab daily for 2 days PREDNISONE 20 MG ORAL TABLET 932553 PREDNISONE Inactive CEFDINIR 300 MG ORAL CAPSULE by mouth twice a day 2013 CEFDINIR 300 MG ORAL CAPSULE 947552 CEFDINIR Inactive TRIAMCINOLONE ACETONIDE 0.1 % EXTERNAL OINTMENT Apply to affected areas TID for up to 2 weeks TRIAMCINOLONE ACETON ZACH 0.1 % EXTERNAL OINTMENT 1006411 TRIAMCINOLONE ACETONIDE Inactive PREDNISONE 20 MG ORAL TABLET 2 tabs daily for 3 days, 1 tab daily for 3 days, 1/2 tab daily for 2 days PREDNISONE 20 MG ORAL T ABLET 771009 PREDNISONE Inactive BACTRIM DS 800-160 MG ORAL TABLET 1 po BID x 7 days 29/04/10 BACTRIM DS 800-160 MG ORAL TABLET 945623 SULFAMETHOXAZOLE-TRIMETHOP RIM Inactive CIPRO 500 MG ORAL TABLET 1 tablet by mouth twice daily CIPRO 500 MG ORAL TABLET 418740 CIPROFLOXACIN HCL Inactive AZITHROMYCIN 250 MG ORAL TABLET 2 po qd x 1 day, then 1 po q d x 4 days AZITHROMYCIN 250 MG ORAL TABLET 898339 AZITHROMY SPARKLE Inactive FLAGYL 500 MG ORAL TABLET 1 tablet by mouth bid 04/13 FLAGYL 500 MG ORAL TABLET 054918 METRONIDAZOLE Inactive AZITHROMYCIN 250 MG ORAL TABLET 2 po qd x 1 day, then 1 po q d x 4 days AZITHROMYCIN 250 MG ORAL TABLET 216458 AZITHROMY SPARKLE Inactive AMOXICILLIN 500 MG ORAL CAPSULE 2 po BID x 10 days 201 01/15/27 AMOXICILLIN 500 MG ORAL CAPSULE 355281 AMOXICILLIN Inactive AMOXICILLIN 500 MG ORAL CAPSULE 2 po BID x 14 days for H. Pylori AMOXICILLIN 500 MG ORAL CAPSULE 131555 AMOXICILLIN Inactive CLARITHROMYCIN 500 MG ORAL TABLET 1 tab po BID x 14 days CLARITHROMYCIN 500 MG ORAL TABLET 343205 CLARITHROMYCIN Inacti ve FLAGYL 500 MG ORAL TABLET 1 tablet by mouth bid 08/29 FLAGYL 500 MG ORAL TABLET 580235 METRONIDAZOLE Inactive PROTONIX 40 MG ORAL TABLET DELAYED RELEASE 1 pill by m outh daily, for acid reflux PROTONIX 40 MG ORAL TABLET DELAYED RELEAS E 551668 PANTOPRAZOLE SODIUM Inactive Immunizations Vaccine Administration Date [...] PANEL - Chemistry cholesterol, serum 192 mg/dL 805-438 7319/02/20 HDL cholesterol, serum 31 mg/dL > OR [...] 11 .0-15.0 platelet count 218 THOUSAND/UL 10*3/mm3 778-847 9773/02/20 mean platelet volume 9.7 fL 7.5-12.5 Lab Report: Comp. Metabolic Panel, Eryth rocyte Sed Rate, UADIP W/MICRO, ... - Chemistry protein, total urine random Negative mg/dL Negative sodium, serum 139 mmol/L 286-540 1028/11/28 carbon dioxide, venous blood 26.0 mmol/L 21.0-32 [...] Negative Encounters Code Encounter Date Provider Facility CPT-00489 Level 4 Est. Patient 08:57:51 RENT COLLECTOR Checo Conklin MD [facility] CPT-40100 Level 3 Est. Patient 11:24:55 RENT COLLECTOR Efren almendarez APRN [facility] CPT-03913 Level 3 Est. Patient 13:05:44 CDT Paul Hamlin MD [facility] CPT-08648 Level 3 Est. Patient 11:29:55 CDT Checo Conklin MD [facility] CPT-20330 Level 4 Est. Patient 11:08:12 RENT COLLECTOR Checo Conklin MD [facility] CPT-80823 Level 4 Est. Patient 16:06:48 RENT COLLECTOR Checo Conklin MD [facility] CPT-51438 Level 3 Est. Patient 09:11:49 CDT Efren almendarez [facility] CPT-73649 Level 2 Est. Patient 19:53:27 CDT Tanner hill MD [facility] CPT-89231 Level 3 Est. Patient 09:15:34 CDT Efren almendarez [facility] CPT-72036 Level 3 Est. Patient 11:28:51 RENT COLLECTOR Efren almendarez [facility] CPT-23832 Level 4 Est. Patient 13:55:46 RENT COLLECTOR Checo Conklin MD [facility] CPT-22469 Level 4 Est. Patient 17:10:53 CDT Checo Conklin MD [facility] CPT-83955 Level 3 Est. Patient 15:56:22 CDT Checo Conklin MD [facility] CPT-12028 Level 3 Est. Patient 15:29:07 CDT Checo Conklin MD [facility] CPT-54173 Level 3 Est. Patient 14:38:41 CDT Checo Conklin MD [facility] CPT-23111 Level 3 Est. Patient 15:22:03 RENT COLLECTOR Thomsa reynolds DO [facility] CPT-67822 Level 3 Est. Patient 13:34:17 RENT COLLECTOR Checo Conklin MD [facility] CPT-60292 Level 3 Est. Patient 12:29:32 CDT Dangelo arroyo MD [facility] CPT-94608 Level 3 Est. Patient 16:53:02 CDT Checo Conklin MD [facility] CPT-72464 Level 3 Est. Patient 16:37:13 CDT Checo Conklin MD [facility] CPT-85781 Level 3 Est. Patient 16:16:59 CDT Paul Hamlin MD [facility] CPT-29086 Level 3 Est. Patient 14:20:13 CDT Dangelo arroyo MD [facility] CPT-86598 Level 4 Est. Patient 11:29:33 CDT Checo Conklin MD [facility] CPT-98463 Level 3 Est. Patient 17:08:31 CDT Checo Conklin MD [facility] CPT-00947 Level 3 Est. Patient 16:50:42 RENT COLLECTOR Checo Conklin MD [facility] CPT-99436 Level 4 Est. Patient 09:26:08 RENT COLLECTOR Checo Conklin MD [facility] CPT-11504 Level 3 Est. Patient 11:37:10 CDT Checo Conklin MD [facility] CPT-77259 Level 4 Est. Patient 14:07:38 CDT Checo Conklin MD [facility] CPT-86900 Level 3 Est. Patient 09:54:41 CDT Checo Conklin MD [facility] CPT-70523 Level 3 Est. Patient 11:10:54 CDT Paul Hamlin MD [facility] CPT-77145 Level 3 Est. Patient 14:16:56 RENT COLLECTOR Checo Conklin MD [facility] CPT-70172 Level 3 Est. Patient 11:04:11 RENT COLLECTOR Checo Conklin MD [facility] CPT-02511 Level 3 Est. Patient 17:09:26 CDT Dangelo arroyo MD [facility] CPT-09198 Level 3 Est. Patient 16:54:37 CDT Checo Conklin MD [facility] Procedures Code Procedure Name Date Entry Date Standard Desc ription CPT-52657 Abd compl w upright - XRAY USE ONLY 1 1:36:54 RENT COLLECTOR CPT-11595 UA w micro - LAB USE ONLY 17:06:46 CDT 2015 CPT-32235 [facility] Qual - LAB USE ONLY 17:06:46 CDT 05/06 CPT-06112 CMP - LAB USE ONLY 17:06:46 CDT CPT-00026 CBC with Diff - LAB USE ONLY 17:06:45 CDT 2 CPT-51766 Venipuncture Draw Fee 17:06:45 CDT CPT-LR Lesion Removal 19:53:27 CDT CPT-OV Office Visit 11:31:28 CDT CPT-63625 Tubersol 09:39:29 CDT CPT-J2550 Phenergan 25 mg (Promethazine) 13:59:02 RENT COLLECTOR CPT-J1885 Toradol 60 mg (Ketorolac) 13:59:02 RENT COLLECTOR 2012
--- OUTSIDE RECORDS SUMMARY | 2019-09-29 01:46 | XMS REPORT | Clinical Summary ---
Author Author Admin, Bethany Ayala [facility] Address Unknown Phone Unavailable Allergies, Adverse Reactions, [...] site not specified Anxiety 300.00 Active Checo Coknlin MD Anxiety state, unspecified A D D [...] RELEASE 1 daily with furosemide POTASSIUM CHLORIDE 38037331890 Active Paul Hamlin MD Active FUROSEMIDE 20 MG ORAL TABLET 1 daily for swelling FUROSEMIDE 15999679608 Active Paul Hamlin MD Active HYDROCHLOROTHIAZIDE 12.5 MG ORAL CAPSULE 1 po qd PRN Edema 01/10 HYDROCHLOROTHIAZIDE 66859699599 No Longer Active Paul Hamlin MD Active IBUPROFEN 800 MG ORAL TABLET 1 tab every 8 hours as needed for p ain IBUPROFEN 04158591801 No Longer Active Paul Hamlin MD Active PAROXETINE HCL 40 MG ORAL TABLET 1 po qd PAR OXETINE HCL 04739612983 Active Checo Conklin MD Active MIRALAX ORAL POWDER 8.5 to 17g po qd PRN Constipation POLYETHYLENE GLYCOL 3350 14419298088 No Longer Active Checo Conklin MD Active PROTONIX 40 MG ORAL TABLET DELAYED RELEASE 1 pill by m out daily, for acid reflux PANTOPRAZOLE SODIUM 13222891060 No Longer Activ e Corry Méndez LPN Active FLAGYL 500 MG ORAL TABLET 1 tablet by mouth bid 08/29 METRONIDAZOLE 62543008385 No Longer Active Corry Méndez LPN Active CLARITHROMYCIN 500 MG ORAL TABLET 1 tab po BID x 14 days CLARITHROMYCIN 33759464266 No Longer Active Corry Méndez LPN Active AMOXICILLIN 500 MG ORAL CAPSULE 2 po BID x 14 days for H. Pylori AMOXICILLIN 95143393040 No Longer Active Corry Méndez LPN Active FLUTICASONE PROPIONATE 50 MCG/ACT NASAL SUSPENSION 2 s prays/nostril qd PRN Congestion/Allergies FLUTICASONE PROPIONATE 6163741064 9 No Longer Active Checo Conklin MD Active AMOXICILLIN 500 MG ORAL CAPSULE 2 po BID x 10 days 201 01/15/27 AMOXICILLIN 25659261133 No Longer Active Checo Conklin MD Activ e CLARITIN 10 MG ORAL TABLET 1 tablet by mouth daily as needed for allergies LORATADINE 94268436022 No Longer Active Checo Ortiz MD Active BACTRIM DS 800-160 MG ORAL TABLET 1 tab by mouth twice daily 201 12/19/26 TRIMETHOPRIM-SULFAMETHOXAZOLE 88406842353 No Longer Active Ragini Carrillo MD Active DIFLUCAN 150 MG ORAL TABLET 1 tablet by mouth qod 2015 FLUCONAZOLE 53440888860 No Longer Active Efren Medel POLE CLASSIFIER Act mike AZITHROMYCIN 250 MG ORAL TABLET 2 po qd x 1 day, then 1 po q d x 4 days AZITHROMYCIN 76884015215 No Longer Active Efren flores POLE CLASSIFIER Active FLAGYL 500 MG ORAL TABLET 1 tablet by mouth bid 04/13 METRONIDAZOLE 17268104563 No Longer Active Checo Conklin MD Acti ve FOCALIN XR 10 MG ORAL CAPSULE EXTENDED RELEASE 24 HOUR 1 po q a.m. DEXMETHYLPHENIDATE HCL 70190211550 Active Checo Conklin MD Active MAGNESIUM CITRATE 1.745 GM/30ML ORAL SOLUTION 150ml po BID P RN Constipation MAGNESIUM CITRATE 86879747039 No Longer Active Checo Conklin MD Active BACTROBAN 2 % EXTERNAL CREAM Apply to affected area BID for up to 10 days MUPIROCIN CALCIUM 73402047917 No Longer Active Checo Conklin MD Active HYDROCODONE-ACETAMINOPHEN 5-325 MG ORAL TABLET 1 tab b y mouth every 6 hours as needed HYDROCODONE-ACETAMINOPHEN 80116691739 No Longer Active Checo Conklin MD Active IBUPROFEN 800 MG ORAL TABLET 1 tab every 8 hours with food 03/20 IBUPROFEN 87958456847 No Longer Active Checo Conklin MD Active DIFLUCAN 150 MG ORAL TABLET 1 tablet by mouth if neede d, hold until symptoms start FLUCONAZOLE 72661522810 No Longer Active Checo Conklin MD Active BACTRIM DS 800-160 MG ORAL TABLET 1 tab by mouth twice daily 201 11/23/03 TRIMETHOPRIM-SULFAMETHOXAZOLE 41405396612 No Longer Active K bernice Méndez LPN Active HYDROCODONE-ACETAMINOPHEN 5-325 MG ORAL TABLET 0.5 to 1 tab by mouth every 6 hours as needed HYDROCODONE-ACETAMINOPHEN 20110729510 No Longer Active Checo Conklin MD Active ONDANSETRON 8 MG ORAL TABLET DISINTEGRATING place one tablet on tongue and allow to dissolve every 6 hours as needed for vomitting ONDANSETRON 87577851797 No Longer Active Checo Conklin MD Activ e COMPRO 25 MG RECTAL SUPPOSITORY insert or apply one garza ppository rectally as directed every 12 hours as needed for nausea PROCHLORPERAZINE 18367735477 No Longer Active Checo Conklin MD A ctive SUMATRIPTAN SUCCINATE 100 MG ORAL TABLET Take one PRN for migran e SUMATRIPTAN SUCCINATE 38950641097 No Longer Active Checo Conklin MD Active TRAVEL SICKNESS 25 MG ORAL TABLET CHEWABLE chew and sw allow one tablet every 6 hours as needed MECLIZINE HCL 69589082528 No Longer A ctive Checo Conklin MD Active BUPROPION HCL ER (SR) 100 MG ORAL TABLET EXTENDED RELE ASE 12 HOUR take one tablet by mouth one time daily for one week then take 1 two times daily BUPROPION HCL 91072289211 No Longer Active Checo gallagher MD Active TERBINAFINE HCL 250 MG ORAL TABLET take one table PO one time da moises TERBINAFINE HCL 18496184015 No Longer Active Checo Conklin MD Active METOCLOPRAMIDE HCL 10 MG ORAL TABLET take one PO tid PRN nausea METOCLOPRAMIDE HCL 09072371551 No Longer Active Checo Conklin MD Active DICLOFENAC SODIUM 75 MG ORAL TABLET DELAYED RELEASE 1 tablet by mouth twice daily PRN Knee pain DICLOFENAC SODIUM 96119975504 No Longer Active Checo Conklin MD Active LAMISIL 250 MG ORAL TABLET 1 po qd TERBINAFI NE HCL 28331449147 No Longer Active Checo Conklin MD Active REGLAN 10 MG ORAL TABLET 1 po TID PRN Nausea 3 METOCLOPRAMIDE HCL 75347470443 No Longer Active Checo Conklin MD Active CELEXA 20 MG ORAL TABLET 1 tablet by mouth daily 09/26 CITALOPRAM HYDROBROMIDE 82852952582 No Longer Active Checo Conklin MD Active AZITHROMYCIN 250 MG ORAL TABLET 2 po qd x 1 day, then 1 po q d x 4 days AZITHROMYCIN 15974769169 No Longer Active Checo Ortiz MD Active HYDROCODONE-ACETAMINOPHEN 5-325 MG ORAL TABLET 1 po q 6hr PRN Pa in HYDROCODONE-ACETAMINOPHEN 74229331992 No Longer Active Lenora Conklin MD Active PHENAZOPYRIDINE HCL 200 MG ORAL TABLET take 1 tab po TID for bladder pain PHENAZOPYRIDINE HCL 76081235722 No Longer Active Joe Conklin MD Active CIPRO 500 MG ORAL TABLET 1 tablet by mouth twice daily CIPROFLOXACIN HCL 56396491677 No Longer Active Dangelo Rangel MD Active HYDROCODONE-ACETAMINOPHEN 5-325 MG ORAL TABLET 1/2 to 1 po q 4 hours prn cough HYDROCODONE-ACETAMINOPHEN 63100180001 No Longer Activ candy Rangel MD Active BACTRIM DS 800-160 MG ORAL TABLET 1 po BID x 7 days 29/04/10 SULFAMETHOXAZOLE-TRIMETHOPRIM 69470286674 No Longer Active Checo Conklin MD Active PREDNISONE 20 MG ORAL TABLET 2 tabs daily for 3 days, 1 tab daily for 3 days, 1/2 tab daily for 2 days PREDNISONE 40844731021 No Longer Active Checo Conklin MD Active TRIAMCINOLONE ACETONIDE 0.1 % EXTERNAL OINTMENT Apply to affected areas TID for up to 2 weeks TRIAMCINOLONE ACETONIDE 67190832954 No Longer Active Checo Conklin MD Active CEFDINIR 300 MG ORAL CAPSULE by mouth twice a day 2013 CEFDINIR 38986584420 No Longer Active Dangelo Rangel MD Acti ve BUPROPION HCL ER (SMOKING DET) 150 MG ORAL TABLET EXTE NDED RELEASE 12 HOUR 1 a day for 1 week then 1 twice a day BUPROPION HCL (SMOKING DETER) 74681459851 No Longer Active Checo Conklin MD Active SIMVASTATIN 20 MG ORAL TABLET 1 po qd SIMVASTAT IN 80878263023 Active Checo Conklin MD Active CHANTIX STARTING MONTH KARTHIK 0.5 MG X 11 & 1 MG X 42 ORA L TABLET 0.5mg daily for 3 days, then 0.5mg BID for 4 days, then 1mg BID VARENICLINE TARTRATE 16592809753 No Longer Active Checo Conklin MD Activ e XANAX 0.5 MG ORAL TABLET 1 po BID PRN anxiety A LPRAZOLAM 04690582229 Active Thomas Marks DO Active CONCERTA 18 MG ORAL TABLET EXTENDED RELEASE 1 po q a.m. METHYLPHENIDATE HCL 92045732989 No Longer Active Checo Conklin MD Active AMBIEN 5 MG ORAL TABLET 1 po qHS PRN Insomnia Z OLPIDEM TARTRATE 59339993493 Active Checo Conklin MD Active TRAZODONE HCL 100 MG ORAL TABLET 0.5 to 1 po qHS PRN Insomnia 20 30/07/08 TRAZODONE HCL 51029492831 No Longer Active Checo Conklin MD Active FIORICET 325-50-40 MG TAB 1 tablet by mouth four times daily as needed [id number] 17179790908 No Longer Active Checo Conklin MD Active PHENERGAN CREAM* 25mg applied to wrist q6hr PRN Nausea PHENERGAN CREAM* No Longer Active Checo Conklin MD A ctive FLONASE 50 MCG/ACT NASAL SUSPENSION 1 spray each nostril am and hs FLUTICASONE PROPIONATE 30904644062 No Longer Active Checo Conklin MD Active ANTIPYRINE-BENZOCAINE 5.4-1.4 % OTIC SOLUTION 1-2 drops in affec yohannes ear BENZOCAINE-ANTIPYRINE 53613160527 No Longer Active Checo Conklin MD Active CEFDINIR 300 MG ORAL CAPSULE 1 po bid CEFDINIR 73945150591 No Longer Active Checo Conklin MD Active PREDNISONE 20 MG ORAL TABLET 2 tabs daily for 3 days, 1 tab daily for 3 days, 1/2 tab daily for 2 days PREDNISONE 30029703800 No Longer Active Checo Conklin MD Active AZITHROMYCIN 250 MG ORAL TABLET 2 po qd x 1 day, then 1 po q d x 4 days AZITHROMYCIN 01650289646 No Longer Active Checo Ortiz MD Active PREDNISONE 20 MG ORAL TABLET 2 tabs daily for 3 days, 1 tab daily for 3 days, 1/2 tab daily for 2 days PREDNISONE 08531549966 No Longer Active Checo Conklin MD Active ZITHROMAX Z-KARTHIK 250 MG ORAL TABLET 2 today, then 1 daily for 4 d ays AZITHROMYCIN 86992264477 No Longer Active Paul Hamlin MD Active FOCALIN XR 10 MG ORAL CAPSULE EXTENDED RELEASE 24 HOUR 1 po q a. m. DEXMETHYLPHENIDATE HCL 07818903225 No Longer Active Paul Hamlin MD Active PERCOCET 10-325 MG ORAL TABLET 1 tablet every 6 hours as needed for pain OXYCODONE-ACETAMINOPHEN 23435715559 No Longer Active Paul Hamlin MD Active LORTAB 5-500 MG ORAL TABLET 1/2 to 1 tablet by mouth e very 4 hours as needed for pain HYDROCODONE-ACETAMINOPHEN 33939388529 No Longer Active Checo Conklin MD Active FOCALIN XR 15 MG ORAL CAPSULE EXTENDED RELEASE 24 HOUR 1 po q a. m. DEXMETHYLPHENIDATE HCL 28164126629 No Longer Active Checo Conklin MD Active ZOFRAN ODT 4 MG ORAL TABLET DISINTEGRATING 1 po q6hr PRN Nausea ONDANSETRON 05365438067 No Longer Active Checo Conklin MD Active PERCOCET 5-325 MG ORAL TABLET 1 tablet by mouth every 6 hour s as needed OXYCODONE-ACETAMINOPHEN 06770045504 No Longer Active Checo Conklin MD Active PYRIDIUM 200 MG ORAL TABLET take 1 tab po TID prn urinary pain. PHENAZOPYRIDINE HCL 01010502984 No Longer Active Checo Joshua Active FLUCONAZOLE 150 MG ORAL TABLET take 1 tab po qday once FLUCONAZOLE 20447339478 No Longer Active Dangelo Rangel MD Acti ve CIPRO 500 MG ORAL TABLET 1 tablet by mouth twice daily CIPROFLOXACIN HCL 62336689764 No Longer Active Dangelo Rangel MD Active PYRIDIUM 200 MG ORAL TABLET take 1 tab po TID prn urinary pain. PYRIDIUM 200 MG ORAL TABLET 9265051 PHENAZOPYRIDINE HCL Inactive PERCOCET 5-325 MG ORAL TABLET 1 tablet by mouth every 6 hour s as needed PERCOCET 5-325 MG ORAL TABLET 1681593 OXYCODONE-ACETAMINOPHEN Inactive ZOFRAN ODT 4 MG ORAL TABLET DISINTEGRATING 1 po q6hr PRN Nausea ZOFRAN ODT 4 MG ORAL TABLET DISINTEGRATING 085894 ONDAN SETRON Inactive FOCALIN XR 15 MG [...] for pain PERCOCET 10-325 MG ORAL TABLET 8930389 OXYCODONE-ACETAMI NOPHEN Inactive FOCALIN XR 10 MG ORAL CAPSULE EXTENDED RELEASE 24 HOUR 1 po q a. m. FOCALIN XR 10 MG ORAL CAPSULE EXTENDED RELEASE 24 HOUR DEXMETHYLPHENIDATE HCL Inactive CEFDINIR 300 MG ORAL CAPSULE 1 po bid CEFDINI R 300 MG ORAL CAPSULE 561687 CEFDINIR Inactive ANTIPYRINE-BENZOCAINE 5.4-1.4 % OTIC SOLUTION 1-2 drops in affec yohannes ear ANTIPYRINE-BENZOCAINE 5.4-1.4 % OTIC SOLUTION BENZOCAINE-ANTIPYRINE Inactive FLONASE 50 MCG/ACT NASAL SUSPENSION 1 spray each nostril am and hs FLONASE 50 MCG/ACT NASAL SUSPENSION 7855467 FLUTICASONE PROPIONATE I nactive PHENERGAN CREAM* 25mg applied to wrist q6hr PRN Nausea PHENERGAN CREAM* Inactive FIORICET 325-50-40 MG TAB 1 tablet by mouth four times daily as needed FIORICET 325-50-40 MG TAB ACETAMINOPHEN-C AFF-BUTALBITAL Inactive TRAZODONE HCL 100 MG ORAL TABLET 0.5 to 1 po qHS PRN Insomnia 20 30/07/08 TRAZODONE HCL 100 MG ORAL TABLET 002811 TRAZODONE HCL Inactive CONCERTA 18 MG ORAL [...] cough HYDROCODONE-ACETAMINOPHEN 5-325 MG ORAL TABLET 8 20497 HYDROCODONE-ACETAMINOPHEN Inactive PHENAZOPYRIDINE HCL 200 MG ORAL TABLET take 1 tab po TID for bladder pain PHENAZOPYRIDINE HCL 200 MG ORAL TABLET 3132933 PHENAZOPYRIDINE HCL Inactive HYDROCODONE-ACETAMINOPHEN 5-325 MG ORAL TABLET 1 po q 6hr PRN Pa in HYDROCODONE-ACETAMINOPHEN 5-325 MG ORAL TABLET 872132 HYDROCODONE-ACETAMINOPHEN Inactive CELEXA 20 MG ORAL TABLET 1 tablet by mouth daily 09/26 CELEXA 20 MG ORAL TABLET 889209 CITALOPRAM HYDROBROMIDE Inactive REGLAN 10 MG ORAL TABLET 1 po TID PRN Nausea 3 REGLAN 10 MG ORAL TABLET 564697 METOCLOPRAMIDE HCL Inactive LAMISIL 250 MG ORAL TABLET 1 po qd L AMISIL 250 MG ORAL TABLET 695827 TERBINAFINE HCL Inactive DICLOFENAC SODIUM 75 MG ORAL TABLET DELAYED RELEASE 1 tablet by mouth twice daily PRN Knee pain DICLOFENAC SODIUM 75 MG ORAL TABLET DELAYED RELEASE 299845 DICLOFENAC SODIUM Inactive METOCLOPRAMIDE HCL 10 MG ORAL TABLET take one PO tid PRN nausea METOCLOPRAMIDE HCL 10 MG ORAL TABLET 403407 METOCLOPRAM ZACH HCL Inactive TERBINAFINE HCL 250 MG ORAL TABLET take one table PO one time da moises TERBINAFINE HCL 250 MG ORAL TABLET 082355 TERBINAFINE H CL Inactive BUPROPION HCL ER [...] SICKNESS 25 M G ORAL TABLET CHEWABLE 894566 MECLIZINE HCL Inactive SUMATRIPTAN SUCCINATE 100 MG ORAL TABLET Take one PRN for migran e SUMATRIPTAN SUCCINATE 100 MG ORAL TABLET 369661 SUMATRIPTAN SUCCINATE Inactive COMPRO 25 MG RECTAL SUPPOSITORY insert or apply one garza ppository rectally as directed every 12 hours as needed for nausea COMPRO 25 MG RECTAL SUPPOSITORY 319024 PROCHLORPERAZINE Inactive ONDANSETRON 8 MG ORAL TABLET DISINTEGRATING place one tablet on tongue and allow to dissolve every 6 hours as needed for vomitting ONDANSETRON 8 MG ORAL TABLET DISINTEGRATING 487257 ONDANSETRON Inactive HYDROCODONE-ACETAMINOPHEN 5-325 MG ORAL TABLET 0.5 to 1 tab by mouth every 6 hours as needed HYDROCODONE-ACETAMIN OPHEN 5-325 MG ORAL TABLET 949664 HYDROCODONE-ACETAMINOPHEN Inactive BACTRIM DS 800-160 MG ORAL TABLET 1 tab by mouth twice daily 201 11/23/03 BACTRIM DS 800-160 MG ORAL TABLET 761960 TRIMETHOPRIM-SULFAMETHOXAZOLE Inactive DIFLUCAN 150 MG ORAL TABLET 1 tablet by mouth if neede d, hold until symptoms start DIFLUCAN 150 MG ORAL TABLET 728739 FLUCONAZ OLE Inactive IBUPROFEN 800 MG ORAL TABLET 1 tab every 8 hours with food 03/20 IBUPROFEN 800 MG ORAL TABLET 663755 IBUPROFEN Krupa ctive HYDROCODONE-ACETAMINOPHEN 5-325 MG ORAL TABLET 1 tab b y mouth every 6 hours as needed HYDROCODONE-ACETAMINOPHEN 5-325 MG ORAL TABLET 046733 HYDROCODONE-ACETAMINOPHEN Inactive BACTROBAN 2 % EXTERNAL CREAM Apply to affected area BID for up to 10 days BACTROBAN 2 % EXTERNAL CREAM 290738 MUPIROCIN CA LCIUM Inactive MAGNESIUM CITRATE 1.745 GM/30ML ORAL SOLUTION 150ml po BID P RN Constipation MAGNESIUM CITRATE 1.745 GM/30ML ORAL SOLUTION 10 84540 MAGNESIUM CITRATE Inactive DIFLUCAN 150 MG ORAL TABLET 1 tablet by mouth qod 2015 DIFLUCAN 150 MG ORAL TABLET 518396 FLUCONAZOLE Inactive BACTRIM DS 800-160 MG ORAL TABLET 1 tab by mouth twice daily 201 12/19/26 BACTRIM DS 800-160 MG ORAL TABLET 629264 TRIMETHOPRIM-SULFAMETHOXAZOLE Inactive CLARITIN 10 MG ORAL TABLET 1 tablet by mouth daily as needed for allergies CLARITIN 10 MG ORAL TABLET 620346 LORATADINE I nactive FLUTICASONE PROPIONATE 50 MCG/ACT NASAL SUSPENSION 2 s prays/nostril qd PRN Congestion/Allergies FLUTICASONE PROPION ATE 50 MCG/ACT NASAL SUSPENSION 1553520 FLUTICASONE PROPIONATE Inactive MIRALAX ORAL POWDER 8.5 to 17g po qd PRN Constipation MIRALAX ORAL POWDER 271395 POLYETHYLENE GLYCOL 3350 Inactive IBUPROFEN 800 MG ORAL TABLET 1 tab every 8 hours as needed for p ain IBUPROFEN 800 MG ORAL TABLET 338406 IBUPROFEN Krupa ctive HYDROCHLOROTHIAZIDE 12.5 MG ORAL CAPSULE 1 po qd PRN Edema 01/10 HYDROCHLOROTHIAZIDE 12.5 MG ORAL CAPSULE 877395 HYDROCH LOROTHIAZIDE Inactive CIPRO 500 MG ORAL TABLET 1 tablet by mouth twice daily CIPRO 500 MG ORAL TABLET 382175 CIPROFLOXACIN HCL Inactive FLUCONAZOLE 150 MG ORAL TABLET take 1 tab po qday once FLUCONAZOLE 150 MG ORAL TABLET 509299 FLUCONAZOLE Inactive ZITHROMAX Z-KARTHIK 250 MG ORAL TABLET 2 today, then 1 daily for 4 d ays ZITHROMAX Z-KARTHIK 250 MG ORAL TABLET 249683 AZITHROMYCIN Inactive PREDNISONE 20 MG ORAL TABLET 2 tabs daily for 3 days, 1 tab daily for 3 days, 1/2 tab daily for 2 days PREDNISONE 20 MG ORAL T ABLET 321813 PREDNISONE Inactive AZITHROMYCIN 250 MG ORAL TABLET 2 po qd x 1 day, then 1 po q d x 4 days AZITHROMYCIN 250 MG ORAL TABLET 697806 AZITHROMY SPARKLE Inactive PREDNISONE 20 MG ORAL TABLET 2 tabs daily for 3 days, 1 tab daily for 3 days, 1/2 tab daily for 2 days PREDNISONE 20 MG ORAL TABLET 155682 PREDNISONE Inactive CEFDINIR 300 MG ORAL CAPSULE by mouth twice a day 2013 CEFDINIR 300 MG ORAL CAPSULE 085311 CEFDINIR Inactive TRIAMCINOLONE ACETONIDE 0.1 % EXTERNAL OINTMENT Apply to affected areas TID for up to 2 weeks TRIAMCINOLONE ACETON ZACH 0.1 % EXTERNAL OINTMENT 4817780 TRIAMCINOLONE ACETONIDE Inactive PREDNISONE 20 MG ORAL TABLET 2 tabs daily for 3 days, 1 tab daily for 3 days, 1/2 tab daily for 2 days PREDNISONE 20 MG ORAL T ABLET 790326 PREDNISONE Inactive BACTRIM DS 800-160 MG ORAL TABLET 1 po BID x 7 days 29/04/10 BACTRIM DS 800-160 MG ORAL TABLET 170301 SULFAMETHOXAZOLE-TRIMETHOP RIM Inactive CIPRO 500 MG ORAL TABLET 1 tablet by mouth twice daily CIPRO 500 MG ORAL TABLET 024242 CIPROFLOXACIN HCL Inactive AZITHROMYCIN 250 MG ORAL TABLET 2 po qd x 1 day, then 1 po q d x 4 days AZITHROMYCIN 250 MG ORAL TABLET 686391 AZITHROMY SPARKLE Inactive FLAGYL 500 MG ORAL TABLET 1 tablet by mouth bid 04/13 FLAGYL 500 MG ORAL TABLET 197180 METRONIDAZOLE Inactive AZITHROMYCIN 250 MG ORAL TABLET 2 po qd x 1 day, then 1 po q d x 4 days AZITHROMYCIN 250 MG ORAL TABLET 522294 AZITHROMY SPARKLE Inactive AMOXICILLIN 500 MG ORAL CAPSULE 2 po BID x 10 days 201 01/15/27 AMOXICILLIN 500 MG ORAL CAPSULE 336272 AMOXICILLIN Inactive AMOXICILLIN 500 MG ORAL CAPSULE 2 po BID x 14 days for H. Pylori AMOXICILLIN 500 MG ORAL CAPSULE 938804 AMOXICILLIN Inactive CLARITHROMYCIN 500 MG ORAL TABLET 1 tab po BID x 14 days CLARITHROMYCIN 500 MG ORAL TABLET 458521 CLARITHROMYCIN Inacti ve FLAGYL 500 MG ORAL TABLET 1 tablet by mouth bid 08/29 FLAGYL 500 MG ORAL TABLET 412040 METRONIDAZOLE Inactive PROTONIX 40 MG ORAL TABLET DELAYED RELEASE 1 pill by m outh daily, for acid reflux PROTONIX 40 MG ORAL TABLET DELAYED RELEAS E 554991 PANTOPRAZOLE SODIUM Inactive Immunizations Vaccine Administration Date [...] ... - Chemistry sodium, serum 138 mmol/L 134-317 1989/06/27 carbon dioxide, venous blood 30.3 mmol/L 21.0-32 [...] ... - Chemistry sodium, serum 139 mmol/L 980-253 7715/11/28 carbon dioxide, venous blood 26.0 mmol/L 21.0-32 [...] 5.0-8.5 Encounters Code Encounter Date Provider Facility CPT-70899 Level 3 Est. Patient 16:46:51 CDT Thomas reynolds DO [facility] CPT-36062 [id number] Vst-Est Level III 14:40:49 CDT Paul Hamlin MD [facility] CPT-97758 Level 4 Est. Patient 11:08:43 CDT Checo Conklin MD [facility] CPT-14977 [id number] Vst-Est Level III 09:37:41 CDT Dangelo Rangel MD [facility] CPT-36222 Level 4 Est. Patient 08:57:51 EXAM PROCTOR Checo Conklin MD [facility] CPT-57959 Level 3 Est. Patient 11:24:55 EXAM PROCTOR Efren almendarez APRN [facility] CPT-06797 Level 3 Est. Patient 13:05:44 CDT Paul Hamlin MD [facility] CPT-14467 Level 3 Est. Patient 11:29:55 CDT Checo Conklin MD [facility] CPT-87890 Level 4 Est. Patient 11:08:12 EXAM PROCTOR Checo Conklin MD [facility] CPT-30024 Level 4 Est. Patient 16:06:48 EXAM PROCTOR Checo Conklin MD [facility] CPT-64168 Level 3 Est. Patient 09:11:49 CDT Jillina F razell [facility] CPT-96132 Level 2 Est. Patient 19:53:27 CDT Tanner hill MD [facility] CPT-23388 Level 3 Est. Patient 09:15:34 CDT Efren Nicolas almendarez [facility] CPT-70339 Level 3 Est. Patient 11:28:51 EXAM PROCTOR Efren Nicolas almendarez [facility] CPT-90109 Level 4 Est. Patient 13:55:46 EXAM PROCTOR Checo Conklin MD [facility] CPT-17888 Level 4 Est. Patient 17:10:53 CDT Checo Conklin MD [facility] CPT-37822 Level 3 Est. Patient 15:56:22 CDT Checo Conklin MD [facility] CPT-70987 Level 3 Est. Patient 15:29:07 CDT Checo Conklin MD [facility] CPT-70099 Level 3 Est. Patient 14:38:41 CDT Checo Conklin MD [facility] CPT-70512 Level 3 Est. Patient 15:22:03 EXAM PROCTOR Thomas reynolds DO [facility] CPT-12643 Level 3 Est. Patient 13:34:17 EXAM PROCTOR Checo Conklin MD [facility] CPT-56799 Level 3 Est. Patient 12:29:32 CDT Dangelo arroyo MD [facility] CPT-48810 Level 3 Est. Patient 16:53:02 CDT Checo Conklin MD [facility] CPT-53206 Level 3 Est. Patient 16:37:13 CDT Checo Conklin MD [facility] CPT-19057 Level 3 Est. Patient 16:16:59 CDT Paul Hamlin MD [facility] CPT-53081 Level 3 Est. Patient 14:20:13 CDT Dangelo arroyo MD [facility] CPT-59520 Level 4 Est. Patient 11:29:33 CDT Checo Conklin MD [facility] CPT-55432 Level 3 Est. Patient 17:08:31 CDT Checo Conklin MD [facility] CPT-02541 Level 3 Est. Patient 16:50:42 EXAM PROCTOR Checo Conklin MD [facility] CPT-20333 Level 4 Est. Patient 09:26:08 EXAM PROCTOR Checo Conklin MD [facility] CPT-34985 Level 3 Est. Patient 11:37:10 CDT Checo Conklin MD [facility] CPT-86049 Level 4 Est. Patient 14:07:38 CDT Checo Conklin MD [facility] CPT-33150 Level 3 Est. Patient 09:54:41 CDT Checo Conklin MD [facility] CPT-31900 Level 3 Est. Patient 11:10:54 CDT Paul Hamlin MD [facility] CPT-82238 Level 3 Est. Patient 14:16:56 EXAM PROCTOR Checo Conklin MD [facility] CPT-87715 Level 3 Est. Patient 11:04:11 EXAM PROCTOR Checo Conklin MD [facility] CPT-34501 Level 3 Est. Patient 17:09:26 CDT Dangelo arroyo MD [facility] CPT-05061 Level 3 Est. Patient 16:54:37 CDT Checo Conklin MD [facility] Procedures Code Procedure Name Date Entry Date Standard Desc ription CPT-71034 Abx/Therapy Injection 18:17:48 CDT CPT-J2550 Phenergan 25 mg (Promethazine) 16:48:23 CDT CPT-J1885 Toradol 60 mg 16:48:23 CDT CPT-24244 Wrist, right, comp 3V - XRAY USE ONLY 09:24:31 CDT CPT-24249 Abd compl w upright - XRAY USE ONLY 1 1:36:54 EXAM PROCTOR CPT-07134 UA w micro - LAB USE ONLY 17:06:46 CDT 2015 CPT-61746 [facility]CG Qual - LAB USE ONLY 17:06:46 CDT 05/06 CPT-39075 CMP - LAB USE ONLY 17:06:46 CDT CPT-67935 CBC with Diff - LAB USE ONLY 17:06:45 CDT 2 CPT-77891 Venipuncture Draw Fee 17:06:45 CDT CPT-LR Lesion Removal 19:53:27 CDT CPT-OV Office Visit 11:31:28 CDT CPT-38199 Tubersol 09:39:29 CDT CPT-J2550 Phenergan 25 mg (Promethazine) 13:59:02 EXAM PROCTOR CPT-J1885 Toradol 60 mg (Ketorolac) 13:59:02 EXAM PROCTOR 2012
--- OUTSIDE RECORDS SUMMARY | 2019-09-29 01:46 | XMS REPORT | Clinical Summary ---
Author Author Admin, Bethany Ayala [facility] Address Unknown Phone Unavailable Allergies, Adverse [...] RELEASE 1 daily with furosemide POTASSIUM CHLORIDE [id number] Active Paul Hamlin MD Active FUROSEMIDE 20 MG ORAL TABLET 1 daily for swelling FUROSEMIDE 94344344279 Active Paul Hamlin MD Active HYDROCHLOROTHIAZIDE 12.5 MG ORAL CAPSULE 1 po qd PRN Edema 01/10 HYDROCHLOROTHIAZIDE 58696687788 No Longer Active Paul Hamlin MD Active IBUPROFEN 800 MG ORAL TABLET 1 tab every 8 hours as needed for p ain IBUPROFEN 29056649655 No Longer Active Paul Hamlin MD Active PAROXETINE HCL 40 MG ORAL TABLET 1 po qd PAR OXETINE HCL 15141466200 Active Checo Conklin MD Active MIRALAX ORAL POWDER 8.5 to 17g po qd PRN Constipation POLYETHYLENE GLYCOL 3350 72057309413 No Longer Active Checo Conklin MD Active PROTONIX 40 MG ORAL TABLET DELAYED RELEASE 1 pill by m out daily, for acid reflux PANTOPRAZOLE SODIUM 18791578007 No Longer Activ e Corry Méndez LPN Active FLAGYL 500 MG ORAL TABLET 1 tablet by mouth bid 08/29 METRONIDAZOLE 59731798556 No Longer Active Corry Méndez LPN Active CLARITHROMYCIN 500 MG ORAL TABLET 1 tab po BID x 14 days CLARITHROMYCIN 90273458861 No Longer Active Corry Méndez LPN Active AMOXICILLIN 500 MG ORAL CAPSULE 2 po BID x 14 days for H. Pylori AMOXICILLIN 76392157936 No Longer Active Corry Méndez LPN Active FLUTICASONE PROPIONATE 50 MCG/ACT NASAL SUSPENSION 2 s prays/nostril qd PRN Congestion/Allergies FLUTICASONE PROPIONATE 2833309224 9 No Longer Active Checo Conklin MD Active AMOXICILLIN 500 MG ORAL CAPSULE 2 po BID x 10 days 201 01/15/27 AMOXICILLIN 52970717067 No Longer Active Checo Conklin MD Activ e CLARITIN 10 MG ORAL TABLET 1 tablet by mouth daily as needed for allergies LORATADINE 53056413705 No Longer Active Checo Ortiz MD Active BACTRIM DS 800-160 MG ORAL TABLET 1 tab by mouth twice daily 201 12/19/26 TRIMETHOPRIM-SULFAMETHOXAZOLE 54899092572 No Longer Active Ragini Carrillo MD Active DIFLUCAN 150 MG ORAL TABLET 1 tablet by mouth qod 2015 FLUCONAZOLE 54798059871 No Longer Active fEren Medel CAR RETARDER OPERATOR Act mike AZITHROMYCIN 250 MG ORAL TABLET 2 po qd x 1 day, then 1 po q d x 4 days AZITHROMYCIN 05241534595 No Longer Active Efren flores CAR RETARDER OPERATOR Active FLAGYL 500 MG ORAL TABLET 1 tablet by mouth bid 04/13 METRONIDAZOLE 56170191746 No Longer Active Checo Conklin MD Acti ve FOCALIN XR 10 MG ORAL CAPSULE EXTENDED RELEASE 24 HOUR 1 po q a.m. DEXMETHYLPHENIDATE HCL 65540630251 Active Checo Conklin MD Active MAGNESIUM CITRATE 1.745 GM/30ML ORAL SOLUTION 150ml po BID P RN Constipation MAGNESIUM CITRATE 56825792120 No Longer Active Checo Conklin MD Active BACTROBAN 2 % EXTERNAL CREAM Apply to affected area BID for up to 10 days MUPIROCIN CALCIUM 07008930572 No Longer Active Checo Conklin MD Active HYDROCODONE-ACETAMINOPHEN 5-325 MG ORAL TABLET 1 tab b y mouth every 6 hours as needed HYDROCODONE-ACETAMINOPHEN 33893435980 No Longer Active Checo Conklin MD Active IBUPROFEN 800 MG ORAL TABLET 1 tab every 8 hours with food 03/20 IBUPROFEN 12030206918 No Longer Active Checo Conklin MD Active DIFLUCAN 150 MG ORAL TABLET 1 tablet by mouth if neede d, hold until symptoms start FLUCONAZOLE 65368600547 No Longer Active Checo Conklin MD Active BACTRIM DS 800-160 MG ORAL TABLET 1 tab by mouth twice daily 201 11/23/03 TRIMETHOPRIM-SULFAMETHOXAZOLE 70786159818 No Longer Active K bernice Méndez LPN Active HYDROCODONE-ACETAMINOPHEN 5-325 MG ORAL TABLET 0.5 to 1 tab by mouth every 6 hours as needed HYDROCODONE-ACETAMINOPHEN 78993639630 No Longer Active Checo Conklin MD Active ONDANSETRON 8 MG ORAL TABLET DISINTEGRATING place one tablet on tongue and allow to dissolve every 6 hours as needed for vomitting ONDANSETRON 58361070335 No Longer Active Checo Conklin MD Activ e COMPRO 25 MG RECTAL SUPPOSITORY insert or apply one garza ppository rectally as directed every 12 hours as needed for nausea PROCHLORPERAZINE 69932772903 No Longer Active Checo Conklin MD A ctive SUMATRIPTAN SUCCINATE 100 MG ORAL TABLET Take one PRN for migran e SUMATRIPTAN SUCCINATE 80515109702 No Longer Active Checo Conklin MD Active TRAVEL SICKNESS 25 MG ORAL TABLET CHEWABLE chew and sw allow one tablet every 6 hours as needed MECLIZINE HCL 34344567967 No Longer A ctive Checo Conklin MD Active BUPROPION HCL ER (SR) 100 MG ORAL TABLET EXTENDED RELE ASE 12 HOUR take one tablet by mouth one time daily for one week then take 1 two times daily BUPROPION HCL 05558802259 No Longer Active Checo gallagher MD Active TERBINAFINE HCL 250 MG ORAL TABLET take one table PO one time da moises TERBINAFINE HCL 30237649141 No Longer Active Checo Conklin MD Active METOCLOPRAMIDE HCL 10 MG ORAL TABLET take one PO tid PRN nausea METOCLOPRAMIDE HCL 33780577512 No Longer Active Checo Conklin MD Active DICLOFENAC SODIUM 75 MG ORAL TABLET DELAYED RELEASE 1 tablet by mouth twice daily PRN Knee pain DICLOFENAC SODIUM 75391562815 No Longer Active Checo Conklin MD Active LAMISIL 250 MG ORAL TABLET 1 po qd TERBINAFI NE HCL 45896680766 No Longer Active Checo Conklin MD Active REGLAN 10 MG ORAL TABLET 1 po TID PRN Nausea 3 METOCLOPRAMIDE HCL 75549411663 No Longer Active Checo Conklin MD Active CELEXA 20 MG ORAL TABLET 1 tablet by mouth daily 09/26 CITALOPRAM HYDROBROMIDE 94822283123 No Longer Active Checo Conklin MD Active AZITHROMYCIN 250 MG ORAL TABLET 2 po qd x 1 day, then 1 po q d x 4 days AZITHROMYCIN 42857882525 No Longer Active Checo Ortiz MD Active HYDROCODONE-ACETAMINOPHEN 5-325 MG ORAL TABLET 1 po q 6hr PRN Pa in HYDROCODONE-ACETAMINOPHEN 86480271898 No Longer Active Lenora Conklin MD Active PHENAZOPYRIDINE HCL 200 MG ORAL TABLET take 1 tab po TID for bladder pain PHENAZOPYRIDINE HCL 59918467628 No Longer Active Joe Conklin MD Active CIPRO 500 MG ORAL TABLET 1 tablet by mouth twice daily CIPROFLOXACIN HCL 72733540140 No Longer Active Dangelo Rangel MD Active HYDROCODONE-ACETAMINOPHEN 5-325 MG ORAL TABLET 1/2 to 1 po q 4 hours prn cough HYDROCODONE-ACETAMINOPHEN 14527203652 No Longer Activ candy Rangel MD Active BACTRIM DS 800-160 MG ORAL TABLET 1 po BID x 7 days 29/04/10 SULFAMETHOXAZOLE-TRIMETHOPRIM 18691970337 No Longer Active Checo Conklin MD Active PREDNISONE 20 MG ORAL TABLET 2 tabs daily for 3 days, 1 tab daily for 3 days, 1/2 tab daily for 2 days PREDNISONE 44466281032 No Longer Active Checo Conklin MD Active TRIAMCINOLONE ACETONIDE 0.1 % EXTERNAL OINTMENT Apply to affected areas TID for up to 2 weeks TRIAMCINOLONE ACETONIDE 38146234417 No Longer Active Checo Conklin MD Active CEFDINIR 300 MG ORAL CAPSULE by mouth twice a day 2013 CEFDINIR 08733184928 No Longer Active Dangelo Rangel MD Acti ve BUPROPION HCL ER (SMOKING DET) 150 MG ORAL TABLET EXTE NDED RELEASE 12 HOUR 1 a day for 1 week then 1 twice a day BUPROPION HCL (SMOKING DETER) 35554559328 No Longer Active Checo Conklin MD Active SIMVASTATIN 20 MG ORAL TABLET 1 po qd SIMVASTAT IN 89042807481 Active Checo Conklin MD Active CHANTIX STARTING MONTH KARTHIK 0.5 MG X 11 & 1 MG X 42 ORA L TABLET 0.5mg daily for 3 days, then 0.5mg BID for 4 days, then 1mg BID VARENICLINE TARTRATE 76791653923 No Longer Active Checo Conklin MD Activ e XANAX 0.5 MG ORAL TABLET 1 po BID PRN anxiety A LPRAZOLAM 10642427083 Active Thomas Marks DO Active CONCERTA 18 MG ORAL TABLET EXTENDED RELEASE 1 po q a.m. METHYLPHENIDATE HCL 01694170851 No Longer Active Checo Conklin MD Active AMBIEN 5 MG ORAL TABLET 1 po qHS PRN Insomnia Z OLPIDEM TARTRATE 77196317546 Active Checo Conklin MD Active TRAZODONE HCL 100 MG ORAL TABLET 0.5 to 1 po qHS PRN Insomnia 20 30/07/08 TRAZODONE HCL 87141756726 No Longer Active Checo Conklin MD Active FIORICET 325-50-40 MG TAB 1 tablet by mouth four times daily as needed [id number] 08705529094 No Longer Active Checo Conklin MD Active PHENERGAN CREAM* 25mg applied to wrist q6hr PRN Nausea PHENERGAN CREAM* No Longer Active Checo Conklin MD A ctive FLONASE 50 MCG/ACT NASAL SUSPENSION 1 spray each nostril am and hs FLUTICASONE PROPIONATE 91306362962 No Longer Active Checo Conklin MD Active ANTIPYRINE-BENZOCAINE 5.4-1.4 % OTIC SOLUTION 1-2 drops in affec yohannes ear BENZOCAINE-ANTIPYRINE 05968971789 No Longer Active Checo Conklin MD Active CEFDINIR 300 MG ORAL CAPSULE 1 po bid CEFDINIR 40329775374 No Longer Active Checo Conklin MD Active PREDNISONE 20 MG ORAL TABLET 2 tabs daily for 3 days, 1 tab daily for 3 days, 1/2 tab daily for 2 days PREDNISONE 05513871070 No Longer Active Checo Conklin MD Active AZITHROMYCIN 250 MG ORAL TABLET 2 po qd x 1 day, then 1 po q d x 4 days AZITHROMYCIN 28883947470 No Longer Active Checo Ortiz MD Active PREDNISONE 20 MG ORAL TABLET 2 tabs daily for 3 days, 1 tab daily for 3 days, 1/2 tab daily for 2 days PREDNISONE 06657116074 No Longer Active Checo Conklin MD Active ZITHROMAX Z-KARTHIK 250 MG ORAL TABLET 2 today, then 1 daily for 4 d ays AZITHROMYCIN 50780266456 No Longer Active Paul Hamlin MD Active FOCALIN XR 10 MG ORAL CAPSULE EXTENDED RELEASE 24 HOUR 1 po q a. m. DEXMETHYLPHENIDATE HCL 84553222593 No Longer Active Paul Hamlin MD Active PERCOCET 10-325 MG ORAL TABLET 1 tablet every 6 hours as needed for pain OXYCODONE-ACETAMINOPHEN 87828355080 No Longer Active Paul Hamlin MD Active LORTAB 5-500 MG ORAL TABLET 1/2 to 1 tablet by mouth e very 4 hours as needed for pain HYDROCODONE-ACETAMINOPHEN 98503884181 No Longer Active Checo Conklin MD Active FOCALIN XR 15 MG ORAL CAPSULE EXTENDED RELEASE 24 HOUR 1 po q a. m. DEXMETHYLPHENIDATE HCL 90214461049 No Longer Active Checo Conklin MD Active ZOFRAN ODT 4 MG ORAL TABLET DISINTEGRATING 1 po q6hr PRN Nausea ONDANSETRON 42317827201 No Longer Active Checo Conklin MD Active PERCOCET 5-325 MG ORAL TABLET 1 tablet by mouth every 6 hour s as needed OXYCODONE-ACETAMINOPHEN 58702240420 No Longer Active Checo Conklin MD Active PYRIDIUM 200 MG ORAL TABLET take 1 tab po TID prn urinary pain. PHENAZOPYRIDINE HCL 87627522669 No Longer Active Checo Joshua Active FLUCONAZOLE 150 MG ORAL TABLET take 1 tab po qday once FLUCONAZOLE 61802976801 No Longer Active Dangelo Rangel MD Acti ve CIPRO 500 MG ORAL TABLET 1 tablet by mouth twice daily CIPROFLOXACIN HCL 73366534081 No Longer Active Dangelo Rangel MD Active PYRIDIUM 200 MG ORAL TABLET take 1 tab po TID prn urinary pain. PYRIDIUM 200 MG ORAL TABLET 4949080 PHENAZOPYRIDINE HCL Inactive PERCOCET 5-325 MG ORAL TABLET 1 tablet by mouth every 6 hour s as needed PERCOCET 5-325 MG ORAL TABLET 8603160 OXYCODONE-ACETAMINOPHEN Inactive ZOFRAN ODT 4 MG ORAL TABLET DISINTEGRATING 1 po q6hr PRN Nausea ZOFRAN ODT 4 MG ORAL TABLET DISINTEGRATING 327947 ONDAN SETRON Inactive FOCALIN XR 15 MG [...] for pain PERCOCET 10-325 MG ORAL TABLET 5113146 OXYCODONE-ACETAMI NOPHEN Inactive FOCALIN XR 10 MG ORAL CAPSULE EXTENDED RELEASE 24 HOUR 1 po q a. m. FOCALIN XR 10 MG ORAL CAPSULE EXTENDED RELEASE 24 HOUR DEXMETHYLPHENIDATE HCL Inactive CEFDINIR 300 MG ORAL CAPSULE 1 po bid CEFDINI R 300 MG ORAL CAPSULE 721604 CEFDINIR Inactive ANTIPYRINE-BENZOCAINE 5.4-1.4 % OTIC SOLUTION 1-2 drops in affec yohannes ear ANTIPYRINE-BENZOCAINE 5.4-1.4 % OTIC SOLUTION BENZOCAINE-ANTIPYRINE Inactive FLONASE 50 MCG/ACT NASAL SUSPENSION 1 spray each nostril am and hs FLONASE 50 MCG/ACT NASAL SUSPENSION 3417418 FLUTICASONE PROPIONATE I nactive PHENERGAN CREAM* 25mg applied to wrist q6hr PRN Nausea PHENERGAN CREAM* Inactive FIORICET 325-50-40 MG TAB 1 tablet by mouth four times daily as needed FIORICET 325-50-40 MG TAB ACETAMINOPHEN-C AFF-BUTALBITAL Inactive TRAZODONE HCL 100 MG ORAL TABLET 0.5 to 1 po qHS PRN Insomnia 20 30/07/08 TRAZODONE HCL 100 MG ORAL TABLET 116318 TRAZODONE HCL Inactive CONCERTA 18 MG ORAL [...] cough HYDROCODONE-ACETAMINOPHEN 5-325 MG ORAL TABLET 8 94088 HYDROCODONE-ACETAMINOPHEN Inactive PHENAZOPYRIDINE HCL 200 MG ORAL TABLET take 1 tab po TID for bladder pain PHENAZOPYRIDINE HCL 200 MG ORAL TABLET 6988654 PHENAZOPYRIDINE HCL Inactive HYDROCODONE-ACETAMINOPHEN 5-325 MG ORAL TABLET 1 po q 6hr PRN Pa in HYDROCODONE-ACETAMINOPHEN 5-325 MG ORAL TABLET 170664 HYDROCODONE-ACETAMINOPHEN Inactive CELEXA 20 MG ORAL TABLET 1 tablet by mouth daily 09/26 CELEXA 20 MG ORAL TABLET 941275 CITALOPRAM HYDROBROMIDE Inactive REGLAN 10 MG ORAL TABLET 1 po TID PRN Nausea 3 REGLAN 10 MG ORAL TABLET 896806 METOCLOPRAMIDE HCL Inactive LAMISIL 250 MG ORAL TABLET 1 po qd L AMISIL 250 MG ORAL TABLET 284009 TERBINAFINE HCL Inactive DICLOFENAC SODIUM 75 MG ORAL TABLET DELAYED RELEASE 1 tablet by mouth twice daily PRN Knee pain DICLOFENAC SODIUM 75 MG ORAL TABLET DELAYED RELEASE 907840 DICLOFENAC SODIUM Inactive METOCLOPRAMIDE HCL 10 MG ORAL TABLET take one PO tid PRN nausea METOCLOPRAMIDE HCL 10 MG ORAL TABLET 651118 METOCLOPRAM ZACH HCL Inactive TERBINAFINE HCL 250 MG ORAL TABLET take one table PO one time da moises TERBINAFINE HCL 250 MG ORAL TABLET 361169 TERBINAFINE H CL Inactive BUPROPION HCL ER [...] SICKNESS 25 M G ORAL TABLET CHEWABLE 949589 MECLIZINE HCL Inactive SUMATRIPTAN SUCCINATE 100 MG ORAL TABLET Take one PRN for migran e SUMATRIPTAN SUCCINATE 100 MG ORAL TABLET 080002 SUMATRIPTAN SUCCINATE Inactive COMPRO 25 MG RECTAL SUPPOSITORY insert or apply one garza ppository rectally as directed every 12 hours as needed for nausea COMPRO 25 MG RECTAL SUPPOSITORY 314226 PROCHLORPERAZINE Inactive ONDANSETRON 8 MG ORAL TABLET DISINTEGRATING place one tablet on tongue and allow to dissolve every 6 hours as needed for vomitting ONDANSETRON 8 MG ORAL TABLET DISINTEGRATING 212647 ONDANSETRON Inactive HYDROCODONE-ACETAMINOPHEN 5-325 MG ORAL TABLET 0.5 to 1 tab by mouth every 6 hours as needed HYDROCODONE-ACETAMIN OPHEN 5-325 MG ORAL TABLET 118786 HYDROCODONE-ACETAMINOPHEN Inactive BACTRIM DS 800-160 MG ORAL TABLET 1 tab by mouth twice daily 201 11/23/03 BACTRIM DS 800-160 MG ORAL TABLET 754833 TRIMETHOPRIM-SULFAMETHOXAZOLE Inactive DIFLUCAN 150 MG ORAL TABLET 1 tablet by mouth if neede d, hold until symptoms start DIFLUCAN 150 MG ORAL TABLET 854708 FLUCONAZ OLE Inactive IBUPROFEN 800 MG ORAL TABLET 1 tab every 8 hours with food 03/20 IBUPROFEN 800 MG ORAL TABLET 105449 IBUPROFEN Krupa ctive HYDROCODONE-ACETAMINOPHEN 5-325 MG ORAL TABLET 1 tab b y mouth every 6 hours as needed HYDROCODONE-ACETAMINOPHEN 5-325 MG ORAL TABLET 133255 HYDROCODONE-ACETAMINOPHEN Inactive BACTROBAN 2 % EXTERNAL CREAM Apply to affected area BID for up to 10 days BACTROBAN 2 % EXTERNAL CREAM 155387 MUPIROCIN CA LCIUM Inactive MAGNESIUM CITRATE 1.745 GM/30ML ORAL SOLUTION 150ml po BID P RN Constipation MAGNESIUM CITRATE 1.745 GM/30ML ORAL SOLUTION 10 05029 MAGNESIUM CITRATE Inactive DIFLUCAN 150 MG ORAL TABLET 1 tablet by mouth qod 2015 DIFLUCAN 150 MG ORAL TABLET 956750 FLUCONAZOLE Inactive BACTRIM DS 800-160 MG ORAL TABLET 1 tab by mouth twice daily 201 12/19/26 BACTRIM DS 800-160 MG ORAL TABLET 757293 TRIMETHOPRIM-SULFAMETHOXAZOLE Inactive CLARITIN 10 MG ORAL TABLET 1 tablet by mouth daily as needed for allergies CLARITIN 10 MG ORAL TABLET 913834 LORATADINE I nactive FLUTICASONE PROPIONATE 50 MCG/ACT NASAL SUSPENSION 2 s prays/nostril qd PRN Congestion/Allergies FLUTICASONE PROPION ATE 50 MCG/ACT NASAL SUSPENSION 7628015 FLUTICASONE PROPIONATE Inactive MIRALAX ORAL POWDER 8.5 to 17g po qd PRN Constipation MIRALAX ORAL POWDER 807986 POLYETHYLENE GLYCOL 3350 Inactive IBUPROFEN 800 MG ORAL TABLET 1 tab every 8 hours as needed for p ain IBUPROFEN 800 MG ORAL TABLET 275343 IBUPROFEN Krupa ctive HYDROCHLOROTHIAZIDE 12.5 MG ORAL CAPSULE 1 po qd PRN Edema 01/10 HYDROCHLOROTHIAZIDE 12.5 MG ORAL CAPSULE 181089 HYDROCH LOROTHIAZIDE Inactive CIPRO 500 MG ORAL TABLET 1 tablet by mouth twice daily CIPRO 500 MG ORAL TABLET 440408 CIPROFLOXACIN HCL Inactive FLUCONAZOLE 150 MG ORAL TABLET take 1 tab po qday once FLUCONAZOLE 150 MG ORAL TABLET 528626 FLUCONAZOLE Inactive ZITHROMAX Z-KARTHIK 250 MG ORAL TABLET 2 today, then 1 daily for 4 d ays ZITHROMAX Z-KARTHIK 250 MG ORAL TABLET 103584 AZITHROMYCIN Inactive PREDNISONE 20 MG ORAL TABLET 2 tabs daily for 3 days, 1 tab daily for 3 days, 1/2 tab daily for 2 days PREDNISONE 20 MG ORAL T ABLET 888487 PREDNISONE Inactive AZITHROMYCIN 250 MG ORAL TABLET 2 po qd x 1 day, then 1 po q d x 4 days AZITHROMYCIN 250 MG ORAL TABLET 469653 AZITHROMY SPARKLE Inactive PREDNISONE 20 MG ORAL TABLET 2 tabs daily for 3 days, 1 tab daily for 3 days, 1/2 tab daily for 2 days PREDNISONE 20 MG ORAL TABLET 610685 PREDNISONE Inactive CEFDINIR 300 MG ORAL CAPSULE by mouth twice a day 2013 CEFDINIR 300 MG ORAL CAPSULE 612408 CEFDINIR Inactive TRIAMCINOLONE ACETONIDE 0.1 % EXTERNAL OINTMENT Apply to affected areas TID for up to 2 weeks TRIAMCINOLONE ACETON ZACH 0.1 % EXTERNAL OINTMENT 1609589 TRIAMCINOLONE ACETONIDE Inactive PREDNISONE 20 MG ORAL TABLET 2 tabs daily for 3 days, 1 tab daily for 3 days, 1/2 tab daily for 2 days PREDNISONE 20 MG ORAL T ABLET 221833 PREDNISONE Inactive BACTRIM DS 800-160 MG ORAL TABLET 1 po BID x 7 days 29/04/10 BACTRIM DS 800-160 MG ORAL TABLET 747110 SULFAMETHOXAZOLE-TRIMETHOP RIM Inactive CIPRO 500 MG ORAL TABLET 1 tablet by mouth twice daily CIPRO 500 MG ORAL TABLET 954510 CIPROFLOXACIN HCL Inactive AZITHROMYCIN 250 MG ORAL TABLET 2 po qd x 1 day, then 1 po q d x 4 days AZITHROMYCIN 250 MG ORAL TABLET 653917 AZITHROMY SPARKLE Inactive FLAGYL 500 MG ORAL TABLET 1 tablet by mouth bid 04/13 FLAGYL 500 MG ORAL TABLET 853690 METRONIDAZOLE Inactive AZITHROMYCIN 250 MG ORAL TABLET 2 po qd x 1 day, then 1 po q d x 4 days AZITHROMYCIN 250 MG ORAL TABLET 638882 AZITHROMY SPARKLE Inactive AMOXICILLIN 500 MG ORAL CAPSULE 2 po BID x 10 days 201 01/15/27 AMOXICILLIN 500 MG ORAL CAPSULE 719869 AMOXICILLIN Inactive AMOXICILLIN 500 MG ORAL CAPSULE 2 po BID x 14 days for H. Pylori AMOXICILLIN 500 MG ORAL CAPSULE 580869 AMOXICILLIN Inactive CLARITHROMYCIN 500 MG ORAL TABLET 1 tab po BID x 14 days CLARITHROMYCIN 500 MG ORAL TABLET 152746 CLARITHROMYCIN Inacti ve FLAGYL 500 MG ORAL TABLET 1 tablet by mouth bid 08/29 FLAGYL 500 MG ORAL TABLET 824729 METRONIDAZOLE Inactive PROTONIX 40 MG ORAL TABLET DELAYED RELEASE 1 pill by m outh daily, for acid reflux PROTONIX 40 MG ORAL TABLET DELAYED RELEAS E 773031 PANTOPRAZOLE SODIUM Inactive Immunizations Vaccine Administration Date [...] ... - Chemistry sodium, serum 138 mmol/L 713-980 8406/06/27 carbon dioxide, venous blood 30.3 mmol/L 21.0-32 [...] ... - Chemistry sodium, serum 139 mmol/L 666-424 6695/11/28 carbon dioxide, venous blood 26.0 mmol/L 21.0-32 [...] 5.0-8.5 Encounters Code Encounter Date Provider Facility CPT-25112 Level 3 Est. Patient 16:46:51 CDT Thomas reynolds DO [facility] CPT-60888 [id number] Vst-Est Level III 14:40:49 CDT Paul Hamlin MD [facility] CPT-18218 Level 4 Est. Patient 11:08:43 CDT Checo Conklin MD [facility] CPT-90267 [id number] Vst-Est Level III 09:37:41 CDT Dangelo Rangel MD [facility] CPT-49955 Level 4 Est. Patient 08:57:51 MANUAL TRAINING TEACHER Checo Conklin MD [facility] CPT-26687 Level 3 Est. Patient 11:24:55 MANUAL TRAINING TEACHER Efren almendarez APRN [facility] CPT-70716 Level 3 Est. Patient 13:05:44 CDT Paul Hamlin MD [facility] CPT-84185 Level 3 Est. Patient 11:29:55 CDT Checo Conklin MD [facility] CPT-37162 Level 4 Est. Patient 11:08:12 MANUAL TRAINING TEACHER Checo Conklin MD [facility] CPT-17420 Level 4 Est. Patient 16:06:48 MANUAL TRAINING TEACHER Checo Conklin MD [facility] CPT-68705 Level 3 Est. Patient 09:11:49 CDT Jillina F razell [facility] CPT-96680 Level 2 Est. Patient 19:53:27 CDT Tanner hill MD [facility] CPT-60660 Level 3 Est. Patient 09:15:34 CDT Efren Nicolas almendarez [facility] CPT-27323 Level 3 Est. Patient 11:28:51 MANUAL TRAINING TEACHER Efren Nicolas almendarez [facility] CPT-48885 Level 4 Est. Patient 13:55:46 MANUAL TRAINING TEACHER Checo Conklin MD [facility] CPT-82184 Level 4 Est. Patient 17:10:53 CDT Checo Conklin MD [facility] CPT-77627 Level 3 Est. Patient 15:56:22 CDT Checo Conklin MD [facility] CPT-78978 Level 3 Est. Patient 15:29:07 CDT Checo Conklin MD [facility] CPT-69350 Level 3 Est. Patient 14:38:41 CDT Checo Conklin MD [facility] CPT-87219 Level 3 Est. Patient 15:22:03 MANUAL TRAINING TEACHER Thomas reynolds DO [facility] CPT-29748 Level 3 Est. Patient 13:34:17 MANUAL TRAINING TEACHER Checo Conklin MD [facility] CPT-19779 Level 3 Est. Patient 12:29:32 CDT Dangelo arroyo MD [facility] CPT-54313 Level 3 Est. Patient 16:53:02 CDT Checo Conklin MD [facility] CPT-07894 Level 3 Est. Patient 16:37:13 CDT Checo Conklin MD [facility] CPT-02813 Level 3 Est. Patient 16:16:59 CDT Paul Hamlin MD [facility] CPT-76510 Level 3 Est. Patient 14:20:13 CDT Dangelo arroyo MD [facility] CPT-47874 Level 4 Est. Patient 11:29:33 CDT Checo Conklin MD [facility] CPT-90819 Level 3 Est. Patient 17:08:31 CDT Checo Conklin MD [facility] CPT-22911 Level 3 Est. Patient 16:50:42 MANUAL TRAINING TEACHER Checo Conklin MD [facility] CPT-09904 Level 4 Est. Patient 09:26:08 MANUAL TRAINING TEACHER Checo Conklin MD [facility] CPT-85688 Level 3 Est. Patient 11:37:10 CDT Checo Conklin MD [facility] CPT-01629 Level 4 Est. Patient 14:07:38 CDT Checo Conklin MD [facility] CPT-08740 Level 3 Est. Patient 09:54:41 CDT Checo Conklin MD [facility] CPT-77732 Level 3 Est. Patient 11:10:54 CDT Paul Hamlin MD [facility] CPT-45599 Level 3 Est. Patient 14:16:56 MANUAL TRAINING TEACHER Checo Conklin MD [facility] CPT-14779 Level 3 Est. Patient 11:04:11 MANUAL TRAINING TEACHER Checo Conklin MD [facility] CPT-97364 Level 3 Est. Patient 17:09:26 CDT Dangelo arroyo MD [facility] CPT-21104 Level 3 Est. Patient 16:54:37 CDT Checo Conklin MD [facility] Procedures Code Procedure Name Date Entry Date Standard Desc ription CPT-67311 Abx/Therapy Injection 18:17:48 CDT CPT-J2550 Phenergan 25 mg (Promethazine) 16:48:23 CDT CPT-J1885 Toradol 60 mg 16:48:23 CDT CPT-81351 Wrist, right, comp 3V - XRAY USE ONLY 09:24:31 CDT CPT-70624 Abd compl w upright - XRAY USE ONLY 1 1:36:54 MANUAL TRAINING TEACHER CPT-44947 UA w micro - LAB USE ONLY 17:06:46 CDT 2015 CPT-82908 [facility] Qual - LAB USE ONLY 17:06:46 CDT 05/06 CPT-72963 CMP - LAB USE ONLY 17:06:46 CDT CPT-61681 CBC with Diff - LAB USE ONLY 17:06:45 CDT 2 CPT-26609 Venipuncture Draw Fee 17:06:45 CDT CPT-LR Lesion Removal 19:53:27 CDT CPT-OV Office Visit 11:31:28 CDT CPT-69545 Tubersol 09:39:29 CDT CPT-J2550 Phenergan 25 mg (Promethazine) 13:59:02 MANUAL TRAINING TEACHER CPT-J1885 Toradol 60 mg (Ketorolac) 13:59:02 MANUAL TRAINING TEACHER 2012
--- OUTSIDE RECORDS SUMMARY | 2019-09-29 01:46 | XMS REPORT | Clinical Summary ---
Author Author Admin, Bethany Ayala Naubo [facility] Address Unknown Phone Unavailable [...] MD Acute pharyngitis TOBACCO ABUSE 305.1 Inactive aPul Hamlin MD Tobacco use disorder Tobacco user [...] pain, generalized ICD-789.07 Inactive Checo Conklin MD PHARYNGITIS ICD-462 Inactive Checo Conklin MD Urinary frequency ICD-788.41 [...] RELEASE 1 daily with furosemide POTASSIUM CHLORIDE 95474010121 Active Paul Hamlin MD Active FUROSEMIDE 20 MG ORAL TABLET 1 daily for swelling FUROSEMIDE 76246479317 Active Paul Hamlin MD Active HYDROCHLOROTHIAZIDE 12.5 MG ORAL CAPSULE 1 po qd PRN Edema 01/10 HYDROCHLOROTHIAZIDE 15509134558 No Longer Active Paul Hamlin MD Active IBUPROFEN 800 MG ORAL TABLET 1 tab every 8 hours as needed for p ain IBUPROFEN 57472193477 No Longer Active Paul Hamlin MD Active PAROXETINE HCL 40 MG ORAL TABLET 1 po qd PAR OXETINE HCL 86802516321 Active Checo Conklin MD Active MIRALAX ORAL POWDER 8.5 to 17g po qd PRN Constipation POLYETHYLENE GLYCOL 3350 83599206872 No Longer Active Checo Conklin MD Active PROTONIX 40 MG ORAL TABLET DELAYED RELEASE 1 pill by m outh daily, for acid reflux PANTOPRAZOLE SODIUM 27460009855 No Longer Activ e Corry Méndez LPN Active FLAGYL 500 MG ORAL TABLET 1 tablet by mouth bid 08/29 METRONIDAZOLE 01234837790 No Longer Active Corry Méndez LPN Active CLARITHROMYCIN 500 MG ORAL TABLET 1 tab po BID x 14 days CLARITHROMYCIN 24344521527 No Longer Active Corry Méndez LPN Active AMOXICILLIN 500 MG ORAL CAPSULE 2 po BID x 14 days for H. Pylori AMOXICILLIN 20924607293 No Longer Active Corry Méndez LPN Active FLUTICASONE PROPIONATE 50 MCG/ACT NASAL SUSPENSION 2 s prays/nostril qd PRN Congestion/Allergies FLUTICASONE PROPIONATE 8991679383 9 No Longer Active Checo Conklin MD Active AMOXICILLIN 500 MG ORAL CAPSULE 2 po BID x 10 days 201 01/15/27 AMOXICILLIN 38158158350 No Longer Active Checo Conklin MD Activ e CLARITIN 10 MG ORAL TABLET 1 tablet by mouth daily as needed for allergies LORATADINE 97190184104 No Longer Active Checo Ortiz MD Active BACTRIM DS 800-160 MG ORAL TABLET 1 tab by mouth twice daily 201 12/19/26 TRIMETHOPRIM-SULFAMETHOXAZOLE 06144123362 No Longer Active Ragini Carrillo MD Active DIFLUCAN 150 MG ORAL TABLET 1 tablet by mouth qod 2015 FLUCONAZOLE 52225197671 No Longer Active Efren Medel ONCOLOGY RESEARCH RN Act mike AZITHROMYCIN 250 MG ORAL TABLET 2 po qd x 1 day, then 1 po q d x 4 days AZITHROMYCIN 44370439678 No Longer Active Efren flores ONCOLOGY RESEARCH RN Active FLAGYL 500 MG ORAL TABLET 1 tablet by mouth bid 04/13 METRONIDAZOLE 93663994197 No Longer Active Checo Conklin MD Acti ve FOCALIN XR 10 MG ORAL CAPSULE EXTENDED RELEASE 24 HOUR 1 po q a.m. DEXMETHYLPHENIDATE HCL 03703916065 Active Checo Conklin MD Active MAGNESIUM CITRATE 1.745 GM/30ML ORAL SOLUTION 150ml po BID P RN Constipation MAGNESIUM CITRATE 11820970139 No Longer Active Checo Conklin MD Active BACTROBAN 2 % EXTERNAL CREAM Apply to affected area BID for up to 10 days MUPIROCIN CALCIUM 67943168654 No Longer Active Checo Conklin MD Active HYDROCODONE-ACETAMINOPHEN 5-325 MG ORAL TABLET 1 tab b y mouth every 6 hours as needed HYDROCODONE-ACETAMINOPHEN 87989925931 No Longer Active Checo Conklin MD Active IBUPROFEN 800 MG ORAL TABLET 1 tab every 8 hours with food 03/20 IBUPROFEN 74913541080 No Longer Active Checo Conklin MD Active DIFLUCAN 150 MG ORAL TABLET 1 tablet by mouth if neede d, hold until symptoms start FLUCONAZOLE 78286532798 No Longer Active Checo Conklin MD Active BACTRIM DS 800-160 MG ORAL TABLET 1 tab by mouth twice daily 201 11/23/03 TRIMETHOPRIM-SULFAMETHOXAZOLE 01481361404 No Longer Active K bernice Méndez LPN Active HYDROCODONE-ACETAMINOPHEN 5-325 MG ORAL TABLET 0.5 to 1 tab by mouth every 6 hours as needed HYDROCODONE-ACETAMINOPHEN 03770385067 No Longer Active Checo Conklin MD Active ONDANSETRON 8 MG ORAL TABLET DISINTEGRATING place one tablet on tongue and allow to dissolve every 6 hours as needed for vomitting ONDANSETRON 39486964725 No Longer Active Checo Conklin MD Activ e COMPRO 25 MG RECTAL SUPPOSITORY insert or apply one garza ppository rectally as directed every 12 hours as needed for nausea PROCHLORPERAZINE 49277535528 No Longer Active Cheoc Conklin MD A ctive SUMATRIPTAN SUCCINATE 100 MG ORAL TABLET Take one PRN for migran e SUMATRIPTAN SUCCINATE 12826446294 No Longer Active Checo Conklin MD Active TRAVEL SICKNESS 25 MG ORAL TABLET CHEWABLE chew and sw allow one tablet every 6 hours as needed MECLIZINE HCL 43919228809 No Longer A ctive Checo Conklin MD Active BUPROPION HCL ER (SR) 100 MG ORAL TABLET EXTENDED RELE ASE 12 HOUR take one tablet by mouth one time daily for one week then take 1 two times daily BUPROPION HCL 60835208920 No Longer Active Checo gallagher MD Active TERBINAFINE HCL 250 MG ORAL TABLET take one table PO one time da moises TERBINAFINE HCL 87921448318 No Longer Active Checo Conklin MD Active METOCLOPRAMIDE HCL 10 MG ORAL TABLET take one PO tid PRN nausea METOCLOPRAMIDE HCL 93516251570 No Longer Active Checo Conklin MD Active DICLOFENAC SODIUM 75 MG ORAL TABLET DELAYED RELEASE 1 tablet by mouth twice daily PRN Knee pain DICLOFENAC SODIUM 65309159893 No Longer Active Checo Conklin MD Active LAMISIL 250 MG ORAL TABLET 1 po qd TERBINAFI NE HCL 05374794696 No Longer Active Checo Conklin MD Active REGLAN 10 MG ORAL TABLET 1 po TID PRN Nausea 3 METOCLOPRAMIDE HCL 11267554832 No Longer Active Checo Conklin MD Active CELEXA 20 MG ORAL TABLET 1 tablet by mouth daily 09/26 CITALOPRAM HYDROBROMIDE 17086376261 No Longer Active Checo Conklin MD Active AZITHROMYCIN 250 MG ORAL TABLET 2 po qd x 1 day, then 1 po q d x 4 days AZITHROMYCIN 30040114680 No Longer Active Checo Ortiz MD Active HYDROCODONE-ACETAMINOPHEN 5-325 MG ORAL TABLET 1 po q 6hr PRN Pa in HYDROCODONE-ACETAMINOPHEN 21322839387 No Longer Active Lenora Conklin MD Active PHENAZOPYRIDINE HCL 200 MG ORAL TABLET take 1 tab po TID for bladder pain PHENAZOPYRIDINE HCL 38368979248 No Longer Active Joe Conklin MD Active CIPRO 500 MG ORAL TABLET 1 tablet by mouth twice daily CIPROFLOXACIN HCL 05430575569 No Longer Active Dangelo Rangel MD Active HYDROCODONE-ACETAMINOPHEN 5-325 MG ORAL TABLET 1/2 to 1 po q 4 hours prn cough HYDROCODONE-ACETAMINOPHEN 65708426383 No Longer Activ candy Rangel MD Active BACTRIM DS 800-160 MG ORAL TABLET 1 po BID x 7 days 29/04/10 SULFAMETHOXAZOLE-TRIMETHOPRIM 40883672708 No Longer Active Checo Conklin MD Active PREDNISONE 20 MG ORAL TABLET 2 tabs daily for 3 days, 1 tab daily for 3 days, 1/2 tab daily for 2 days PREDNISONE 56290382912 No Longer Active Checo Conklin MD Active TRIAMCINOLONE ACETONIDE 0.1 % EXTERNAL OINTMENT Apply to affected areas TID for up to 2 weeks TRIAMCINOLONE ACETONIDE 97022840353 No Longer Active Checo Conklin MD Active CEFDINIR 300 MG ORAL CAPSULE by mouth twice a day 2013 CEFDINIR 02204083892 No Longer Active Dangelo Rangel MD Acti ve BUPROPION HCL ER (SMOKING DET) 150 MG ORAL TABLET EXTE NDED RELEASE 12 HOUR 1 a day for 1 week then 1 twice a day BUPROPION HCL (SMOKING DETER) 39586525293 No Longer Active Checo Conklin MD Active SIMVASTATIN 20 MG ORAL TABLET 1 po qd SIMVASTAT IN 32164084195 Active Checo Conklin MD Active CHANTIX STARTING MONTH KARTHIK 0.5 MG X 11 & 1 MG X 42 ORA L TABLET 0.5mg daily for 3 days, then 0.5mg BID for 4 days, then 1mg BID VARENICLINE TARTRATE 02065286451 No Longer Active Checo Conklin MD Activ e XANAX 0.5 MG ORAL TABLET 1 po BID PRN anxiety A LPRAZOLAM 91200242605 Active Thomas Marks DO Active CONCERTA 18 MG ORAL TABLET EXTENDED RELEASE 1 po q a.m. METHYLPHENIDATE HCL 32952021271 No Longer Active Checo Conklin MD Active AMBIEN 5 MG ORAL TABLET 1 po qHS PRN Insomnia Z OLPIDEM TARTRATE 62464913425 Active Checo Conklin MD Active TRAZODONE HCL 100 MG ORAL TABLET 0.5 to 1 po qHS PRN Insomnia 20 30/07/08 TRAZODONE HCL 52205101668 No Longer Active Checo Conklin MD Active FIORICET 325-50-40 MG TAB 1 tablet by mouth four times daily as needed [id number] 30731920156 No Longer Active Checo Conklin MD Active PHENERGAN CREAM* 25mg applied to wrist q6hr PRN Nausea PHENERGAN CREAM* No Longer Active Checo Conklin MD A ctive FLONASE 50 MCG/ACT NASAL SUSPENSION 1 spray each nostril am and hs FLUTICASONE PROPIONATE 15687570520 No Longer Active Checo Conklin MD Active ANTIPYRINE-BENZOCAINE 5.4-1.4 % OTIC SOLUTION 1-2 drops in affec yohannes ear BENZOCAINE-ANTIPYRINE 78639029493 No Longer Active Checo Conklin MD Active CEFDINIR 300 MG ORAL CAPSULE 1 po bid CEFDINIR 43514630042 No Longer Active Checo Conklin MD Active PREDNISONE 20 MG ORAL TABLET 2 tabs daily for 3 days, 1 tab daily for 3 days, 1/2 tab daily for 2 days PREDNISONE 05565877689 No Longer Active Checo Conklin MD Active AZITHROMYCIN 250 MG ORAL TABLET 2 po qd x 1 day, then 1 po q d x 4 days AZITHROMYCIN 12722959171 No Longer Active Checo Ortiz MD Active PREDNISONE 20 MG ORAL TABLET 2 tabs daily for 3 days, 1 tab daily for 3 days, 1/2 tab daily for 2 days PREDNISONE 77589086243 No Longer Active Checo Conklin MD Active ZITHROMAX Z-KARTHIK 250 MG ORAL TABLET 2 today, then 1 daily for 4 d ays AZITHROMYCIN 41809080930 No Longer Active Paul Hamlin MD Active FOCALIN XR 10 MG ORAL CAPSULE EXTENDED RELEASE 24 HOUR 1 po q a. m. DEXMETHYLPHENIDATE HCL 83129541699 No Longer Active Paul Hamlin MD Active PERCOCET 10-325 MG ORAL TABLET 1 tablet every 6 hours as needed for pain OXYCODONE-ACETAMINOPHEN 52868509438 No Longer Active Paul Hamlin MD Active LORTAB 5-500 MG ORAL TABLET 1/2 to 1 tablet by mouth e very 4 hours as needed for pain HYDROCODONE-ACETAMINOPHEN 00136936181 No Longer Active Checo Conklin MD Active FOCALIN XR 15 MG ORAL CAPSULE EXTENDED RELEASE 24 HOUR 1 po q a. m. DEXMETHYLPHENIDATE HCL 71079239387 No Longer Active Checo Conklin MD Active ZOFRAN ODT 4 MG ORAL TABLET DISINTEGRATING 1 po q6hr PRN Nausea ONDANSETRON 56281699848 No Longer Active Checo Conklin MD Active PERCOCET 5-325 MG ORAL TABLET 1 tablet by mouth every 6 hour s as needed OXYCODONE-ACETAMINOPHEN 78242873431 No Longer Active Checo Conklin MD Active PYRIDIUM 200 MG ORAL TABLET take 1 tab po TID prn urinary pain. PHENAZOPYRIDINE HCL 19201246712 No Longer Active Checo Joshua Active FLUCONAZOLE 150 MG ORAL TABLET take 1 tab po qday once FLUCONAZOLE 34712760206 No Longer Active Dangelo Ragnel MD Acti ve CIPRO 500 MG ORAL TABLET 1 tablet by mouth twice daily CIPROFLOXACIN HCL 68042839808 No Longer Active Dangelo Rangel MD Active PYRIDIUM 200 MG ORAL TABLET take 1 tab po TID prn urinary pain. PYRIDIUM 200 MG ORAL TABLET 7931267 PHENAZOPYRIDINE HCL Inactive PERCOCET 5-325 MG ORAL TABLET 1 tablet by mouth every 6 hour s as needed PERCOCET 5-325 MG ORAL TABLET 3049999 OXYCODONE-ACETAMINOPHEN Inactive ZOFRAN ODT 4 MG ORAL TABLET DISINTEGRATING 1 po q6hr PRN Nausea ZOFRAN ODT 4 MG ORAL TABLET DISINTEGRATING 557217 ONDAN SETRON Inactive FOCALIN XR 15 MG [...] for pain PERCOCET 10-325 MG ORAL TABLET 5667132 OXYCODONE-ACETAMI NOPHEN Inactive FOCALIN XR 10 MG ORAL CAPSULE EXTENDED RELEASE 24 HOUR 1 po q a. m. FOCALIN XR 10 MG ORAL CAPSULE EXTENDED RELEASE 24 HOUR DEXMETHYLPHENIDATE HCL Inactive CEFDINIR 300 MG ORAL CAPSULE 1 po bid CEFDINI R 300 MG ORAL CAPSULE 655620 CEFDINIR Inactive ANTIPYRINE-BENZOCAINE 5.4-1.4 % OTIC SOLUTION 1-2 drops in affec yohannes ear ANTIPYRINE-BENZOCAINE 5.4-1.4 % OTIC SOLUTION BENZOCAINE-ANTIPYRINE Inactive FLONASE 50 MCG/ACT NASAL SUSPENSION 1 spray each nostril am and hs FLONASE 50 MCG/ACT NASAL SUSPENSION 8521757 FLUTICASONE PROPIONATE I nactive PHENERGAN CREAM* 25mg applied to wrist q6hr PRN Nausea PHENERGAN CREAM* Inactive FIORICET 325-50-40 MG TAB 1 tablet by mouth four times daily as needed FIORICET 325-50-40 MG TAB ACETAMINOPHEN-C AFF-BUTALBITAL Inactive TRAZODONE HCL 100 MG ORAL TABLET 0.5 to 1 po qHS PRN Insomnia 20 30/07/08 TRAZODONE HCL 100 MG ORAL TABLET 093460 TRAZODONE HCL Inactive CONCERTA 18 MG ORAL TABLET EXTENDED RELEASE 1 po q a.m. CONCERTA 18 MG ORAL TABLET EXTENDED RELEASE METHYLPHENIDATE HCL Inactive CHANTIX STARTING MONTH KARTHIK 0.5 MG X 11 & 1 MG X 42 ORA L TABLET 0.5mg daily for 3 days, then 0.5mg BID for 4 days, then 1mg BID CHANTIX STARTING MONTH KARTHKI 0.5 MG X 11 & 1 MG X 42 ORAL TABLET VAREN ICLINE TARTRATE Inactive HYDROCODONE-ACETAMINOPHEN 5-325 MG ORAL TABLET 1/2 to 1 po q 4 hours prn cough HYDROCODONE-ACETAMINOPHEN 5-325 MG ORAL TABLET 8 27056 HYDROCODONE-ACETAMINOPHEN Inactive PHENAZOPYRIDINE HCL 200 MG ORAL TABLET take 1 tab po TID for bladder pain PHENAZOPYRIDINE HCL 200 MG ORAL TABLET 0129696 PHENAZOPYRIDINE HCL Inactive HYDROCODONE-ACETAMINOPHEN 5-325 MG ORAL TABLET 1 po q 6hr PRN Pa in HYDROCODONE-ACETAMINOPHEN 5-325 MG ORAL TABLET 183420 HYDROCODONE-ACETAMINOPHEN Inactive CELEXA 20 MG ORAL TABLET 1 tablet by mouth daily 09/26 CELEXA 20 MG ORAL TABLET 354639 CITALOPRAM HYDROBROMIDE Inactive REGLAN 10 MG ORAL TABLET 1 po TID PRN Nausea 3 REGLAN 10 MG ORAL TABLET 450552 METOCLOPRAMIDE HCL Inactive LAMISIL 250 MG ORAL TABLET 1 po qd L AMISIL 250 MG ORAL TABLET 277796 TERBINAFINE HCL Inactive DICLOFENAC SODIUM 75 MG ORAL TABLET DELAYED RELEASE 1 tablet by mouth twice daily PRN Knee pain DICLOFENAC SODIUM 75 MG ORAL TABLET DELAYED RELEASE 503031 DICLOFENAC SODIUM Inactive METOCLOPRAMIDE HCL 10 MG ORAL TABLET take one PO tid PRN nausea METOCLOPRAMIDE HCL 10 MG ORAL TABLET 407351 METOCLOPRAM ZACH HCL Inactive TERBINAFINE HCL 250 MG ORAL TABLET take one table PO one time da moises TERBINAFINE HCL 250 MG ORAL TABLET 892965 TERBINAFINE H CL Inactive BUPROPION HCL ER [...] SICKNESS 25 M G ORAL TABLET CHEWABLE 237055 MECLIZINE HCL Inactive SUMATRIPTAN SUCCINATE 100 MG ORAL TABLET Take one PRN for migran e SUMATRIPTAN SUCCINATE 100 MG ORAL TABLET 687303 SUMATRIPTAN SUCCINATE Inactive COMPRO 25 MG RECTAL SUPPOSITORY insert or apply one garza ppository rectally as directed every 12 hours as needed for nausea COMPRO 25 MG RECTAL SUPPOSITORY 797895 PROCHLORPERAZINE Inactive ONDANSETRON 8 MG ORAL TABLET DISINTEGRATING place one tablet on tongue and allow to dissolve every 6 hours as needed for vomitting ONDANSETRON 8 MG ORAL TABLET DISINTEGRATING 101757 ONDANSETRON Inactive HYDROCODONE-ACETAMINOPHEN 5-325 MG ORAL TABLET 0.5 to 1 tab by mouth every 6 hours as needed HYDROCODONE-ACETAMIN OPHEN 5-325 MG ORAL TABLET 930819 HYDROCODONE-ACETAMINOPHEN Inactive BACTRIM DS 800-160 MG ORAL TABLET 1 tab by mouth twice daily 201 11/23/03 BACTRIM DS 800-160 MG ORAL TABLET 226500 TRIMETHOPRIM-SULFAMETHOXAZOLE Inactive DIFLUCAN 150 MG ORAL TABLET 1 tablet by mouth if neede d, hold until symptoms start DIFLUCAN 150 MG ORAL TABLET 594842 FLUCONAZ OLE Inactive IBUPROFEN 800 MG ORAL TABLET 1 tab every 8 hours with food 03/20 IBUPROFEN 800 MG ORAL TABLET 001839 IBUPROFEN [place] ctive HYDROCODONE-ACETAMINOPHEN 5-325 MG ORAL TABLET 1 tab b y mouth every 6 hours as needed HYDROCODONE-ACETAMINOPHEN 5-325 MG ORAL TABLET 729883 HYDROCODONE-ACETAMINOPHEN Inactive BACTROBAN 2 % EXTERNAL CREAM Apply to affected area BID for up to 10 days BACTROBAN 2 % EXTERNAL CREAM 100537 MUPIROCIN CA LCIUM Inactive MAGNESIUM CITRATE 1.745 GM/30ML ORAL SOLUTION 150ml po BID P RN Constipation MAGNESIUM CITRATE 1.745 GM/30ML ORAL SOLUTION 10 78470 MAGNESIUM CITRATE Inactive DIFLUCAN 150 MG ORAL TABLET 1 tablet by mouth qod 2015 DIFLUCAN 150 MG ORAL TABLET 165013 FLUCONAZOLE Inactive BACTRIM DS 800-160 MG ORAL TABLET 1 tab by mouth twice daily 201 12/19/26 BACTRIM DS 800-160 MG ORAL TABLET 965280 TRIMETHOPRIM-SULFAMETHOXAZOLE Inactive CLARITIN 10 MG ORAL TABLET 1 tablet by mouth daily as needed for allergies CLARITIN 10 MG ORAL TABLET 952158 LORATADINE I nactive FLUTICASONE PROPIONATE 50 MCG/ACT NASAL SUSPENSION 2 s prays/nostril qd PRN Congestion/Allergies FLUTICASONE PROPION ATE 50 MCG/ACT NASAL SUSPENSION 7563850 FLUTICASONE PROPIONATE Inactive MIRALAX ORAL POWDER 8.5 to 17g po qd PRN Constipation MIRALAX ORAL POWDER 492942 POLYETHYLENE GLYCOL 3350 Inactive IBUPROFEN 800 MG ORAL TABLET 1 tab every 8 hours as needed for p ain IBUPROFEN 800 MG ORAL TABLET 644022 IBUPROFEN [place] ctive HYDROCHLOROTHIAZIDE 12.5 MG ORAL CAPSULE 1 po qd PRN Edema 01/10 HYDROCHLOROTHIAZIDE 12.5 MG ORAL CAPSULE 701959 HYDROCH LOROTHIAZIDE Inactive CIPRO 500 MG ORAL TABLET 1 tablet by mouth twice daily CIPRO 500 MG ORAL TABLET 969279 CIPROFLOXACIN HCL Inactive FLUCONAZOLE 150 MG ORAL TABLET take 1 tab po qday once FLUCONAZOLE 150 MG ORAL TABLET 818947 FLUCONAZOLE Inactive ZITHROMAX Z-KARTHIK 250 MG ORAL TABLET 2 today, then 1 daily for 4 d ays ZITHROMAX Z-KARTHIK 250 MG ORAL TABLET 422090 AZITHROMYCIN Inactive PREDNISONE 20 MG ORAL TABLET 2 tabs daily for 3 days, 1 tab daily for 3 days, 1/2 tab daily for 2 days PREDNISONE 20 MG ORAL T ABLET 622377 PREDNISONE Inactive AZITHROMYCIN 250 MG ORAL TABLET 2 po qd x 1 day, then 1 po q d x 4 days AZITHROMYCIN 250 MG ORAL TABLET 887886 AZITHROMY SPARKLE Inactive PREDNISONE 20 MG ORAL TABLET 2 tabs daily for 3 days, 1 tab daily for 3 days, 1/2 tab daily for 2 days PREDNISONE 20 MG ORAL TABLET 438713 PREDNISONE Inactive CEFDINIR 300 MG ORAL CAPSULE by mouth twice a day 2013 CEFDINIR 300 MG ORAL CAPSULE 907898 CEFDINIR Inactive TRIAMCINOLONE ACETONIDE 0.1 % EXTERNAL OINTMENT Apply to affected areas TID for up to 2 weeks TRIAMCINOLONE ACETON ZACH 0.1 % EXTERNAL OINTMENT 0289948 TRIAMCINOLONE ACETONIDE Inactive PREDNISONE 20 MG ORAL TABLET 2 tabs daily for 3 days, 1 tab daily for 3 days, 1/2 tab daily for 2 days PREDNISONE 20 MG ORAL T ABLET 153728 PREDNISONE Inactive BACTRIM DS 800-160 MG ORAL TABLET 1 po BID x 7 days 29/04/10 BACTRIM DS 800-160 MG ORAL TABLET 822228 SULFAMETHOXAZOLE-TRIMETHOP RIM Inactive CIPRO 500 MG ORAL TABLET 1 tablet by mouth twice daily CIPRO 500 MG ORAL TABLET 414590 CIPROFLOXACIN HCL Inactive AZITHROMYCIN 250 MG ORAL TABLET 2 po qd x 1 day, then 1 po q d x 4 days AZITHROMYCIN 250 MG ORAL TABLET 771895 AZITHROMY SPARKLE Inactive FLAGYL 500 MG ORAL TABLET 1 tablet by mouth bid 04/13 FLAGYL 500 MG ORAL TABLET 998958 METRONIDAZOLE Inactive AZITHROMYCIN 250 MG ORAL TABLET 2 po qd x 1 day, then 1 po q d x 4 days AZITHROMYCIN 250 MG ORAL TABLET 548493 AZITHROMY SPARKLE Inactive AMOXICILLIN 500 MG ORAL CAPSULE 2 po BID x 10 days 201 01/15/27 AMOXICILLIN 500 MG ORAL CAPSULE 016501 AMOXICILLIN Inactive AMOXICILLIN 500 MG ORAL CAPSULE 2 po BID x 14 days for H. Pylori AMOXICILLIN 500 MG ORAL CAPSULE 680807 AMOXICILLIN Inactive CLARITHROMYCIN 500 MG ORAL TABLET 1 tab po BID x 14 days CLARITHROMYCIN 500 MG ORAL TABLET 537111 CLARITHROMYCIN Inacti ve FLAGYL 500 MG ORAL TABLET 1 tablet by mouth bid 08/29 FLAGYL 500 MG ORAL TABLET 772873 METRONIDAZOLE Inactive PROTONIX 40 MG ORAL TABLET DELAYED RELEASE 1 pill by m outh daily, for acid reflux PROTONIX 40 MG ORAL TABLET DELAYED RELEAS E 683877 PANTOPRAZOLE SODIUM Inactive Immunizations Vaccine Administration Date [...] d blood pressure, diastolic 75 mm[Hg] BP mtahew blood pressure, systolic 107 mm[Hg] BP sys [...] ... - Chemistry sodium, serum 138 mmol/L 014-912 1257/06/27 carbon dioxide, venous blood 30.3 mmol/L 21.0-32 [...] ... - Chemistry sodium, serum 139 mmol/L 966-534 9788/11/28 carbon dioxide, venous blood 26.0 mmol/L 21.0-32 [...] 5.0-8.5 Encounters Code Encounter Date Provider Facility CPT-43653 Level 3 Est. Patient 16:46:51 CDT Thomas reynolds DO [facility] CPT-83007 [id number] Vst-Est Level III 14:40:49 CDT Paul Hamlin [facility] CPT-39843 Level 4 Est. Patient 11:08:43 CDT Checo Conklin MD [facility] CPT-07919 [id number] Vst-Est Level III 09:37:41 CDT Dangelo Rangel MD [facility] CPT-68849 Level 4 Est. Patient 08:57:51 HOT BLASTER Checo Conklin MD [facility] CPT-79353 Level 3 Est. Patient 11:24:55 HOT BLASTER Efren almendarez APRN [facility] CPT-65152 Level 3 Est. Patient 13:05:44 CDT Paul Hamlin MD [facility] CPT-81957 Level 3 Est. Patient 11:29:55 CDT Checo Conklin MD [facility] CPT-18028 Level 4 Est. Patient 11:08:12 HOT BLASTER Checo Conklin MD [facility] CPT-63407 Level 4 Est. Patient 16:06:48 HOT BLASTER Checo Conklin MD [facility] CPT-48856 Level 3 Est. Patient 09:11:49 CDT Efren almendarez [facility] CPT-51129 Level 2 Est. Patient 19:53:27 CDT Tanner hill MD [facility] CPT-51854 Level 3 Est. Patient 09:15:34 CDT Efren Nicolas almendarez [facility] CPT-23159 Level 3 Est. Patient 11:28:51 HOT BLASTER Efren Nicolas almendarez [facility] CPT-48871 Level 4 Est. Patient 13:55:46 HOT BLASTER Checo Conklin MD [facility] CPT-48829 Level 4 Est. Patient 17:10:53 CDT Checo Conklin MD [facility] CPT-98483 Level 3 Est. Patient 15:56:22 CDT Checo Conklin MD [facility] CPT-40092 Level 3 Est. Patient 15:29:07 CDT Checo Conklin MD [facility] CPT-23251 Level 3 Est. Patient 14:38:41 CDT Checo Conklin MD [facility] CPT-54920 Level 3 Est. Patient 15:22:03 HOT BLASTER Thomas reynolds DO [facility] CPT-06796 Level 3 Est. Patient 13:34:17 HOT BLASTER Checo Conklin MD [facility] CPT-84879 Level 3 Est. Patient 12:29:32 CDT Dangelo arroyo MD [facility] CPT-72678 Level 3 Est. Patient 16:53:02 CDT Checo Conklin MD [facility] CPT-01579 Level 3 Est. Patient 16:37:13 CDT Checo Conklin MD [facility] CPT-86506 Level 3 Est. Patient 16:16:59 CDT Paul Hamlin MD [facility]-12960 Level 3 Est. Patient 14:20:13 CDT Dangelo arroyo MD [facility] CPT-43698 Level 4 Est. Patient 11:29:33 CDT Checo Conklin MD [facility] CPT-13685 Level 3 Est. Patient 17:08:31 CDT Checo Conklin MD [facility] CPT-12699 Level 3 Est. Patient 16:50:42 HOT BLASTER Checo Conklin MD [facility] CPT-91859 Level 4 Est. Patient 09:26:08 HOT BLASTER Checo Conklin MD [facility] CPT-03463 Level 3 Est. Patient 11:37:10 CDT Checo Conklin MD [facility] CPT-23548 Level 4 Est. Patient 14:07:38 CDT Checo Conklin MD [facility] CPT-36146 Level 3 Est. Patient 09:54:41 CDT Checo Conklin MD [facility] CPT-42916 Level 3 Est. Patient 11:10:54 CDT Paul Hamlin MD [facility] CPT-39971 Level 3 Est. Patient 14:16:56 HOT BLASTER Checo Conklin MD [facility] CPT-36464 Level 3 Est. Patient 11:04:11 HOT BLASTER Checo Conklin MD [facility] CPT-62672 Level 3 Est. Patient 17:09:26 CDT Dangelo arroyo MD [facility] CPT-73356 Level 3 Est. Patient 16:54:37 CDT Checo Conklin MD [facility] Procedures Code Procedure Name Date Entry Date Standard Desc ription CPT-75698 Abx/Therapy Injection 18:17:48 CDT CPT-J2550 Phenergan 25 mg (Promethazine) 16:48:23 CDT CPT-J1885 Toradol 60 mg 16:48:23 CDT CPT-41099 Wrist, right, comp 3V - XRAY USE ONLY 09:24:31 CDT CPT-03153 Abd compl w upright - XRAY USE ONLY 1 1:36:54 HOT BLASTER CPT-84446 UA w micro - LAB USE ONLY 17:06:46 CDT 2015 CPT-82338 BHCG Qual - LAB USE ONLY 17:06:46 CDT 05/06 CPT-05402 CMP - LAB USE ONLY 17:06:46 CDT CPT-99772 CBC with Diff - LAB USE ONLY 17:06:45 CDT 2 CPT-90769 Venipuncture Draw Fee 17:06:45 CDT CPT-LR Lesion Removal 19:53:27 CDT CPT-OV Office Visit 11:31:28 CDT CPT-05484 Tubersol 09:39:29 CDT CPT-J2550 Phenergan 25 mg (Promethazine) 13:59:02 HOT BLASTER CPT-J1885 Toradol 60 mg (Ketorolac) 13:59:02 HOT BLASTER 2012
--- OUTSIDE RECORDS SUMMARY | 2019-09-29 01:47 | XMS REPORT | Clinical Summary ---
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 Chceo Conklin MD Family history of malignant neoplasm [...] RELEASE 1 daily with furosemide POTASSIUM CHLORIDE 52186505234 Active Paul Hamlin MD Active FUROSEMIDE 20 MG ORAL TABLET 1 daily for swelling FUROSEMIDE 00762747557 Active Paul Hamlin MD Active HYDROCHLOROTHIAZIDE 12.5 MG ORAL CAPSULE 1 po qd PRN Edema 01/10 HYDROCHLOROTHIAZIDE 10113335020 No Longer Active Paul Hamlin MD Active IBUPROFEN 800 MG ORAL TABLET 1 tab every 8 hours as needed for p ain IBUPROFEN 22727265127 No Longer Active Paul Hamlin MD Active PAROXETINE HCL 40 MG ORAL TABLET 1 po qd PAR OXETINE HCL 56854069112 Active Checo Conklin MD Active MIRALAX ORAL POWDER 8.5 to 17g po qd PRN Constipation POLYETHYLENE GLYCOL 3350 06135900670 No Longer Active Checo Conklin MD Active PROTONIX 40 MG ORAL TABLET DELAYED RELEASE 1 pill by m out daily, for acid reflux PANTOPRAZOLE SODIUM 97791263378 No Longer Activ e Corry Méndez LPN Active FLAGYL 500 MG ORAL TABLET 1 tablet by mouth bid 08/29 METRONIDAZOLE 61487014570 No Longer Active Corry Méndez LPN Active CLARITHROMYCIN 500 MG ORAL TABLET 1 tab po BID x 14 days CLARITHROMYCIN 90381404481 No Longer Active Corry Méndez LPN Active AMOXICILLIN 500 MG ORAL CAPSULE 2 po BID x 14 days for H. Pylori AMOXICILLIN 03640821520 No Longer Active Corry Méndez LPN Active FLUTICASONE PROPIONATE 50 MCG/ACT NASAL SUSPENSION 2 s prays/nostril qd PRN Congestion/Allergies FLUTICASONE PROPIONATE 2385096000 9 No Longer Active Checo Conklin MD Active AMOXICILLIN 500 MG ORAL CAPSULE 2 po BID x 10 days 201 01/15/27 AMOXICILLIN 16546392072 No Longer Active Checo Conklin MD Activ e CLARITIN 10 MG ORAL TABLET 1 tablet by mouth daily as needed for allergies LORATADINE 22005177497 No Longer Active Checo Ortiz MD Active BACTRIM DS 800-160 MG ORAL TABLET 1 tab by mouth twice daily 201 12/19/26 TRIMETHOPRIM-SULFAMETHOXAZOLE 47637654828 No Longer Active Ragini Carrillo MD Active DIFLUCAN 150 MG ORAL TABLET 1 tablet by mouth qod 2015 FLUCONAZOLE 15045694131 No Longer Active Efren Medel TOURIST GUIDE Act mike AZITHROMYCIN 250 MG ORAL TABLET 2 po qd x 1 day, then 1 po q d x 4 days AZITHROMYCIN 26860880232 No Longer Active Efren flores TOURIST GUIDE Active FLAGYL 500 MG ORAL TABLET 1 tablet by mouth bid 04/13 METRONIDAZOLE 77542478713 No Longer Active Checo Conklin MD Acti ve FOCALIN XR 10 MG ORAL CAPSULE EXTENDED RELEASE 24 HOUR 1 po q a.m. DEXMETHYLPHENIDATE HCL 31096826824 Active Checo Conklin MD Active MAGNESIUM CITRATE 1.745 GM/30ML ORAL SOLUTION 150ml po BID P RN Constipation MAGNESIUM CITRATE 30725817785 No Longer Active Checo Conklin MD Active BACTROBAN 2 % EXTERNAL CREAM Apply to affected area BID for up to 10 days MUPIROCIN CALCIUM 39611728721 No Longer Active Checo Conklin MD Active HYDROCODONE-ACETAMINOPHEN 5-325 MG ORAL TABLET 1 tab b y mouth every 6 hours as needed HYDROCODONE-ACETAMINOPHEN 14005051977 No Longer Active Checo Conklin MD Active IBUPROFEN 800 MG ORAL TABLET 1 tab every 8 hours with food 03/20 IBUPROFEN 01372554842 No Longer Active Checo Conklin MD Active DIFLUCAN 150 MG ORAL TABLET 1 tablet by mouth if neede d, hold until symptoms start FLUCONAZOLE 98734231748 No Longer Active Checo Conklin MD Active BACTRIM DS 800-160 MG ORAL TABLET 1 tab by mouth twice daily 201 11/23/03 TRIMETHOPRIM-SULFAMETHOXAZOLE 33489898654 No Longer Active K bernice Méndez LPN Active HYDROCODONE-ACETAMINOPHEN 5-325 MG ORAL TABLET 0.5 to 1 tab by mouth every 6 hours as needed HYDROCODONE-ACETAMINOPHEN 87345520473 No Longer Active Checo Conklin MD Active ONDANSETRON 8 MG ORAL TABLET DISINTEGRATING place one tablet on tongue and allow to dissolve every 6 hours as needed for vomitting ONDANSETRON 83371634099 No Longer Active Checo Conklin MD Activ e COMPRO 25 MG RECTAL SUPPOSITORY insert or apply one garza ppository rectally as directed every 12 hours as needed for nausea PROCHLORPERAZINE 69778310216 No Longer Active Checo Conklin MD A ctive SUMATRIPTAN SUCCINATE 100 MG ORAL TABLET Take one PRN for migran e SUMATRIPTAN SUCCINATE 70323402334 No Longer Active Checo Conklin MD Active TRAVEL SICKNESS 25 MG ORAL TABLET CHEWABLE chew and sw allow one tablet every 6 hours as needed MECLIZINE HCL 30272067753 No Longer A ctive Checo Conklin MD Active BUPROPION HCL ER (SR) 100 MG ORAL TABLET EXTENDED RELE ASE 12 HOUR take one tablet by mouth one time daily for one week then take 1 two times daily BUPROPION HCL 59942157698 No Longer Active Checo gallagher MD Active TERBINAFINE HCL 250 MG ORAL TABLET take one table PO one time da moises TERBINAFINE HCL 71643967256 No Longer Active Checo Conklin MD Active METOCLOPRAMIDE HCL 10 MG ORAL TABLET take one PO tid PRN nausea METOCLOPRAMIDE HCL 63658476492 No Longer Active Checo Conklin MD Active DICLOFENAC SODIUM 75 MG ORAL TABLET DELAYED RELEASE 1 tablet by mouth twice daily PRN Knee pain DICLOFENAC SODIUM 45265763063 No Longer Active Checo Conklin MD Active LAMISIL 250 MG ORAL TABLET 1 po qd TERBINAFI NE HCL 14676072573 No Longer Active Checo Conklin MD Active REGLAN 10 MG ORAL TABLET 1 po TID PRN Nausea 3 METOCLOPRAMIDE HCL 07584639855 No Longer Active Checo Conklin MD Active CELEXA 20 MG ORAL TABLET 1 tablet by mouth daily 09/26 CITALOPRAM HYDROBROMIDE 93840657824 No Longer Active Checo Conklin MD Active AZITHROMYCIN 250 MG ORAL TABLET 2 po qd x 1 day, then 1 po q d x 4 days AZITHROMYCIN 08823098166 No Longer Active Checo Ortiz MD Active HYDROCODONE-ACETAMINOPHEN 5-325 MG ORAL TABLET 1 po q 6hr PRN Pa in HYDROCODONE-ACETAMINOPHEN 11220630127 No Longer Active Lenora Conklin MD Active PHENAZOPYRIDINE HCL 200 MG ORAL TABLET take 1 tab po TID for bladder pain PHENAZOPYRIDINE HCL 92923198092 No Longer Active Joe Conklin MD Active CIPRO 500 MG ORAL TABLET 1 tablet by mouth twice daily CIPROFLOXACIN HCL 20443678562 No Longer Active Dangelo Rangel MD Active HYDROCODONE-ACETAMINOPHEN 5-325 MG ORAL TABLET 1/2 to 1 po q 4 hours prn cough HYDROCODONE-ACETAMINOPHEN 10932557964 No Longer Activ candy Rangel MD Active BACTRIM DS 800-160 MG ORAL TABLET 1 po BID x 7 days 29/04/10 SULFAMETHOXAZOLE-TRIMETHOPRIM 09364170886 No Longer Active Checo Conklin MD Active PREDNISONE 20 MG ORAL TABLET 2 tabs daily for 3 days, 1 tab daily for 3 days, 1/2 tab daily for 2 days PREDNISONE 69397192756 No Longer Active Checo Conklin MD Active TRIAMCINOLONE ACETONIDE 0.1 % EXTERNAL OINTMENT Apply to affected areas TID for up to 2 weeks TRIAMCINOLONE ACETONIDE 95208824448 No Longer Active Checo Conklin MD Active CEFDINIR 300 MG ORAL CAPSULE by mouth twice a day 2013 CEFDINIR 13082384648 No Longer Active Dangelo Rangel MD Acti ve BUPROPION HCL ER (SMOKING DET) 150 MG ORAL TABLET EXTE NDED RELEASE 12 HOUR 1 a day for 1 week then 1 twice a day BUPROPION HCL (SMOKING DETER) 95831750012 No Longer Active Checo Conklin MD Active SIMVASTATIN 20 MG ORAL TABLET 1 po qd SIMVASTAT IN 50746155758 Active Checo Conklin MD Active CHANTIX STARTING MONTH KARTHIK 0.5 MG X 11 & 1 MG X 42 ORA L TABLET 0.5mg daily for 3 days, then 0.5mg BID for 4 days, then 1mg BID VARENICLINE TARTRATE 89593460603 No Longer Active Checo Conklin MD Activ e XANAX 0.5 MG ORAL TABLET 1 po BID PRN anxiety A LPRAZOLAM 97054865989 Active Thomas Marks DO Active CONCERTA 18 MG ORAL TABLET EXTENDED RELEASE 1 po q a.m. METHYLPHENIDATE HCL 72087227875 No Longer Active Checo Conklin MD Active AMBIEN 5 MG ORAL TABLET 1 po qHS PRN Insomnia Z OLPIDEM TARTRATE 99114808358 Active Thomas Marks DO Active TRAZODONE HCL 100 MG ORAL TABLET 0.5 to 1 po qHS PRN Insomnia 20 30/07/08 TRAZODONE HCL 14218078771 No Longer Active Checo Conklin MD Active FIORICET 325-50-40 MG TAB 1 tablet by mouth four times daily as needed [id number] 40066949301 No Longer Active Checo Conklin MD Active PHENERGAN CREAM* 25mg applied to wrist q6hr PRN Nausea PHENERGAN CREAM* No Longer Active Checo Conklin MD A ctive FLONASE 50 MCG/ACT NASAL SUSPENSION 1 spray each nostril am and hs FLUTICASONE PROPIONATE 05964176761 No Longer Active Checo Conklin MD Active ANTIPYRINE-BENZOCAINE 5.4-1.4 % OTIC SOLUTION 1-2 drops in affec yohannes ear BENZOCAINE-ANTIPYRINE 62210622086 No Longer Active Checo Conklin MD Active CEFDINIR 300 MG ORAL CAPSULE 1 po bid CEFDINIR 41073729790 No Longer Active Checo Conklin MD Active PREDNISONE 20 MG ORAL TABLET 2 tabs daily for 3 days, 1 tab daily for 3 days, 1/2 tab daily for 2 days PREDNISONE 77066479924 No Longer Active Checo Conklin MD Active AZITHROMYCIN 250 MG ORAL TABLET 2 po qd x 1 day, then 1 po q d x 4 days AZITHROMYCIN 48022521202 No Longer Active Checo Ortiz MD Active PREDNISONE 20 MG ORAL TABLET 2 tabs daily for 3 days, 1 tab daily for 3 days, 1/2 tab daily for 2 days PREDNISONE 24222160177 No Longer Active Checo Conklin MD Active ZITHROMAX Z-KARTHIK 250 MG ORAL TABLET 2 today, then 1 daily for 4 d ays AZITHROMYCIN 92653136079 No Longer Active Paul Hamlin MD Active FOCALIN XR 10 MG ORAL CAPSULE EXTENDED RELEASE 24 HOUR 1 po q a. m. DEXMETHYLPHENIDATE HCL 21170873617 No Longer Active Paul Hamlin MD Active PERCOCET 10-325 MG ORAL TABLET 1 tablet every 6 hours as needed for pain OXYCODONE-ACETAMINOPHEN 00634920373 No Longer Active Paul Hamlin MD Active LORTAB 5-500 MG ORAL TABLET 1/2 to 1 tablet by mouth e very 4 hours as needed for pain HYDROCODONE-ACETAMINOPHEN 39900401700 No Longer Active Checo Conklin MD Active FOCALIN XR 15 MG ORAL CAPSULE EXTENDED RELEASE 24 HOUR 1 po q a. m. DEXMETHYLPHENIDATE HCL 22056198065 No Longer Active Checo Conklin MD Active ZOFRAN ODT 4 MG ORAL TABLET DISINTEGRATING 1 po q6hr PRN Nausea ONDANSETRON 28851321638 No Longer Active Checo Conklin MD Active PERCOCET 5-325 MG ORAL TABLET 1 tablet by mouth every 6 hour s as needed OXYCODONE-ACETAMINOPHEN 99458163397 No Longer Active Checo Conklin MD Active PYRIDIUM 200 MG ORAL TABLET take 1 tab po TID prn urinary pain. PHENAZOPYRIDINE HCL 17000111796 No Longer Active Checo Joshua Active FLUCONAZOLE 150 MG ORAL TABLET take 1 tab po qday once FLUCONAZOLE 38531643322 No Longer Active Dangelo Rangel MD Acti ve CIPRO 500 MG ORAL TABLET 1 tablet by mouth twice daily CIPROFLOXACIN HCL 83098144691 No Longer Active Dangelo Rangel MD Active PYRIDIUM 200 MG ORAL TABLET take 1 tab po TID prn urinary pain. PYRIDIUM 200 MG ORAL TABLET 2835971 PHENAZOPYRIDINE HCL Inactive PERCOCET 5-325 MG ORAL TABLET 1 tablet by mouth every 6 hour s as needed PERCOCET 5-325 MG ORAL TABLET 8936185 OXYCODONE-ACETAMINOPHEN Inactive ZOFRAN ODT 4 MG ORAL TABLET DISINTEGRATING 1 po q6hr PRN Nausea ZOFRAN ODT 4 MG ORAL TABLET DISINTEGRATING 122386 ONDAN SETRON Inactive FOCALIN XR 15 MG [...] for pain PERCOCET 10-325 MG ORAL TABLET 7894840 OXYCODONE-ACETAMI NOPHEN Inactive FOCALIN XR 10 MG ORAL CAPSULE EXTENDED RELEASE 24 HOUR 1 po q a. m. FOCALIN XR 10 MG ORAL CAPSULE EXTENDED RELEASE 24 HOUR DEXMETHYLPHENIDATE HCL Inactive CEFDINIR 300 MG ORAL CAPSULE 1 po bid CEFDINI R 300 MG ORAL CAPSULE 133240 CEFDINIR Inactive ANTIPYRINE-BENZOCAINE 5.4-1.4 % OTIC SOLUTION 1-2 drops in affec yohannes ear ANTIPYRINE-BENZOCAINE 5.4-1.4 % OTIC SOLUTION BENZOCAINE-ANTIPYRINE Inactive FLONASE 50 MCG/ACT NASAL SUSPENSION 1 spray each nostril am and hs FLONASE 50 MCG/ACT NASAL SUSPENSION 5207351 FLUTICASONE PROPIONATE I nactive PHENERGAN CREAM* 25mg applied to wrist q6hr PRN Nausea PHENERGAN CREAM* Inactive FIORICET 325-50-40 MG TAB 1 tablet by mouth four times daily as needed FIORICET 325-50-40 MG TAB ACETAMINOPHEN-C AFF-BUTALBITAL Inactive TRAZODONE HCL 100 MG ORAL TABLET 0.5 to 1 po qHS PRN Insomnia 20 30/07/08 TRAZODONE HCL 100 MG ORAL TABLET 511051 TRAZODONE HCL Inactive CONCERTA 18 MG ORAL [...] cough HYDROCODONE-ACETAMINOPHEN 5-325 MG ORAL TABLET 8 09930 HYDROCODONE-ACETAMINOPHEN Inactive PHENAZOPYRIDINE HCL 200 MG ORAL TABLET take 1 tab po TID for bladder pain PHENAZOPYRIDINE HCL 200 MG ORAL TABLET 5098855 PHENAZOPYRIDINE HCL Inactive HYDROCODONE-ACETAMINOPHEN 5-325 MG ORAL TABLET 1 po q 6hr PRN Pa in HYDROCODONE-ACETAMINOPHEN 5-325 MG ORAL TABLET 195838 HYDROCODONE-ACETAMINOPHEN Inactive CELEXA 20 MG ORAL TABLET 1 tablet by mouth daily 09/26 CELEXA 20 MG ORAL TABLET 050195 CITALOPRAM HYDROBROMIDE Inactive REGLAN 10 MG ORAL TABLET 1 po TID PRN Nausea 3 REGLAN 10 MG ORAL TABLET 242343 METOCLOPRAMIDE HCL Inactive LAMISIL 250 MG ORAL TABLET 1 po qd L AMISIL 250 MG ORAL TABLET 502625 TERBINAFINE HCL Inactive DICLOFENAC SODIUM 75 MG ORAL TABLET DELAYED RELEASE 1 tablet by mouth twice daily PRN Knee pain DICLOFENAC SODIUM 75 MG ORAL TABLET DELAYED RELEASE 987115 DICLOFENAC SODIUM Inactive METOCLOPRAMIDE HCL 10 MG ORAL TABLET take one PO tid PRN nausea METOCLOPRAMIDE HCL 10 MG ORAL TABLET 123297 METOCLOPRAM ZACH HCL Inactive TERBINAFINE HCL 250 MG ORAL TABLET take one table PO one time da moises TERBINAFINE HCL 250 MG ORAL TABLET 977598 TERBINAFINE H CL Inactive BUPROPION HCL ER [...] SICKNESS 25 M G ORAL TABLET CHEWABLE 245591 MECLIZINE HCL Inactive SUMATRIPTAN SUCCINATE 100 MG ORAL TABLET Take one PRN for migran e SUMATRIPTAN SUCCINATE 100 MG ORAL TABLET 957324 SUMATRIPTAN SUCCINATE Inactive COMPRO 25 MG RECTAL SUPPOSITORY insert or apply one garza ppository rectally as directed every 12 hours as needed for nausea COMPRO 25 MG RECTAL SUPPOSITORY 859032 PROCHLORPERAZINE Inactive ONDANSETRON 8 MG ORAL TABLET DISINTEGRATING place one tablet on tongue and allow to dissolve every 6 hours as needed for vomitting ONDANSETRON 8 MG ORAL TABLET DISINTEGRATING 513196 ONDANSETRON Inactive HYDROCODONE-ACETAMINOPHEN 5-325 MG ORAL TABLET 0.5 to 1 tab by mouth every 6 hours as needed HYDROCODONE-ACETAMIN OPHEN 5-325 MG ORAL TABLET 161988 HYDROCODONE-ACETAMINOPHEN Inactive BACTRIM DS 800-160 MG ORAL TABLET 1 tab by mouth twice daily 201 11/23/03 BACTRIM DS 800-160 MG ORAL TABLET 034321 TRIMETHOPRIM-SULFAMETHOXAZOLE Inactive DIFLUCAN 150 MG ORAL TABLET 1 tablet by mouth if neede d, hold until symptoms start DIFLUCAN 150 MG ORAL TABLET 700573 FLUCONAZ OLE Inactive IBUPROFEN 800 MG ORAL TABLET 1 tab every 8 hours with food 03/20 IBUPROFEN 800 MG ORAL TABLET 227161 IBUPROFEN Krupa ctive HYDROCODONE-ACETAMINOPHEN 5-325 MG ORAL TABLET 1 tab b y mouth every 6 hours as needed HYDROCODONE-ACETAMINOPHEN 5-325 MG ORAL TABLET 889162 HYDROCODONE-ACETAMINOPHEN Inactive BACTROBAN 2 % EXTERNAL CREAM Apply to affected area BID for up to 10 days BACTROBAN 2 % EXTERNAL CREAM 801848 MUPIROCIN CA LCIUM Inactive MAGNESIUM CITRATE 1.745 GM/30ML ORAL SOLUTION 150ml po BID P RN Constipation MAGNESIUM CITRATE 1.745 GM/30ML ORAL SOLUTION 10 19061 MAGNESIUM CITRATE Inactive DIFLUCAN 150 MG ORAL TABLET 1 tablet by mouth qod 2015 DIFLUCAN 150 MG ORAL TABLET 779716 FLUCONAZOLE Inactive BACTRIM DS 800-160 MG ORAL TABLET 1 tab by mouth twice daily 201 12/19/26 BACTRIM DS 800-160 MG ORAL TABLET 643610 TRIMETHOPRIM-SULFAMETHOXAZOLE Inactive CLARITIN 10 MG ORAL TABLET 1 tablet by mouth daily as needed for allergies CLARITIN 10 MG ORAL TABLET 527422 LORATADINE I nactive FLUTICASONE PROPIONATE 50 MCG/ACT NASAL SUSPENSION 2 s prays/nostril qd PRN Congestion/Allergies FLUTICASONE PROPION ATE 50 MCG/ACT NASAL SUSPENSION 8900380 FLUTICASONE PROPIONATE Inactive MIRALAX ORAL POWDER 8.5 to 17g po qd PRN Constipation MIRALAX ORAL POWDER 207328 POLYETHYLENE GLYCOL 3350 Inactive IBUPROFEN 800 MG ORAL TABLET 1 tab every 8 hours as needed for p ain IBUPROFEN 800 MG ORAL TABLET 210236 IBUPROFEN Krupa ctive HYDROCHLOROTHIAZIDE 12.5 MG ORAL CAPSULE 1 po qd PRN Edema 01/10 HYDROCHLOROTHIAZIDE 12.5 MG ORAL CAPSULE 358424 HYDROCH LOROTHIAZIDE Inactive CIPRO 500 MG ORAL TABLET 1 tablet by mouth twice daily CIPRO 500 MG ORAL TABLET 760994 CIPROFLOXACIN HCL Inactive FLUCONAZOLE 150 MG ORAL TABLET take 1 tab po qday once FLUCONAZOLE 150 MG ORAL TABLET 307594 FLUCONAZOLE Inactive ZITHROMAX Z-KARTHIK 250 MG ORAL TABLET 2 today, then 1 daily for 4 d ays ZITHROMAX Z-KARTHIK 250 MG ORAL TABLET 875056 AZITHROMYCIN Inactive PREDNISONE 20 MG ORAL TABLET 2 tabs daily for 3 days, 1 tab daily for 3 days, 1/2 tab daily for 2 days PREDNISONE 20 MG ORAL T ABLET 357593 PREDNISONE Inactive AZITHROMYCIN 250 MG ORAL TABLET 2 po qd x 1 day, then 1 po q d x 4 days AZITHROMYCIN 250 MG ORAL TABLET 871137 AZITHROMY SPARKLE Inactive PREDNISONE 20 MG ORAL TABLET 2 tabs daily for 3 days, 1 tab daily for 3 days, 1/2 tab daily for 2 days PREDNISONE 20 MG ORAL TABLET 250568 PREDNISONE Inactive CEFDINIR 300 MG ORAL CAPSULE by mouth twice a day 2013 CEFDINIR 300 MG ORAL CAPSULE 039516 CEFDINIR Inactive TRIAMCINOLONE ACETONIDE 0.1 % EXTERNAL OINTMENT Apply to affected areas TID for up to 2 weeks TRIAMCINOLONE ACETON ZACH 0.1 % EXTERNAL OINTMENT 1300908 TRIAMCINOLONE ACETONIDE Inactive PREDNISONE 20 MG ORAL TABLET 2 tabs daily for 3 days, 1 tab daily for 3 days, 1/2 tab daily for 2 days PREDNISONE 20 MG ORAL T ABLET 859467 PREDNISONE Inactive BACTRIM DS 800-160 MG ORAL TABLET 1 po BID x 7 days 29/04/10 BACTRIM DS 800-160 MG ORAL TABLET 671602 SULFAMETHOXAZOLE-TRIMETHOP RIM Inactive CIPRO 500 MG ORAL TABLET 1 tablet by mouth twice daily CIPRO 500 MG ORAL TABLET 452445 CIPROFLOXACIN HCL Inactive AZITHROMYCIN 250 MG ORAL TABLET 2 po qd x 1 day, then 1 po q d x 4 days AZITHROMYCIN 250 MG ORAL TABLET 204535 AZITHROMY SPARKLE Inactive FLAGYL 500 MG ORAL TABLET 1 tablet by mouth bid 04/13 FLAGYL 500 MG ORAL TABLET 464277 METRONIDAZOLE Inactive AZITHROMYCIN 250 MG ORAL TABLET 2 po qd x 1 day, then 1 po q d x 4 days AZITHROMYCIN 250 MG ORAL TABLET 038850 AZITHROMY SPARKLE Inactive AMOXICILLIN 500 MG ORAL CAPSULE 2 po BID x 10 days 201 01/15/27 AMOXICILLIN 500 MG ORAL CAPSULE 370632 AMOXICILLIN Inactive AMOXICILLIN 500 MG ORAL CAPSULE 2 po BID x 14 days for H. Pylori AMOXICILLIN 500 MG ORAL CAPSULE 791578 AMOXICILLIN Inactive CLARITHROMYCIN 500 MG ORAL TABLET 1 tab po BID x 14 days CLARITHROMYCIN 500 MG ORAL TABLET 572671 CLARITHROMYCIN Inacti ve FLAGYL 500 MG ORAL TABLET 1 tablet by mouth bid 08/29 FLAGYL 500 MG ORAL TABLET 185636 METRONIDAZOLE Inactive PROTONIX 40 MG ORAL TABLET DELAYED RELEASE 1 pill by m outh daily, for acid reflux PROTONIX 40 MG ORAL TABLET DELAYED RELEAS E 893092 PANTOPRAZOLE SODIUM Inactive Immunizations Vaccine Administration Date [...] ... - Chemistry sodium, serum 138 mmol/L 273-842 9750/06/27 carbon dioxide, venous blood 30.3 mmol/L 21.0-32 [...] ... - Chemistry sodium, serum 139 mmol/L 602-160 5014/11/28 carbon dioxide, venous blood 26.0 mmol/L 21.0-32 [...] 5.0-8.5 Encounters Code Encounter Date Provider Facility CPT-46978 Level 3 Est. Patient 16:46:51 CDT Thomas reynolds DO [facility] CPT-22086 [id number] Vst-Est Level III 14:40:49 CDT Paul Hamlin MD [facility] CPT-90154 Level 4 Est. Patient 11:08:43 CDT Checo Conklin MD [facility] CPT-45924 [id number] Vst-Est Level III 09:37:41 CDT Dangelo Rangel MD [facility] CPT-85163 Level 4 Est. Patient 08:57:51 [employer] Checo Conklin MD [facility] CPT-55756 Level 3 Est. Patient 11:24:55 [employer] Efren almendarez APRN [facility] CPT-61834 Level 3 Est. Patient 13:05:44 CDT Paul Hamlin MD [facility] CPT-77046 Level 3 Est. Patient 11:29:55 CDT Checo Conklin MD [facility] CPT-57558 Level 4 Est. Patient 11:08:12 [employer] Checo Conklin MD [facility] CPT-27718 Level 4 Est. Patient 16:06:48 [employer] Checo Conklin MD [facility] CPT-73540 Level 3 Est. Patient 09:11:49 CDT Jillina F razell [facility] CPT-52229 Level 2 Est. Patient 19:53:27 CDT Tanner hill MD [facility] CPT-50013 Level 3 Est. Patient 09:15:34 CDT Efren Nicolas almendarez [facility] CPT-38841 Level 3 Est. Patient 11:28:51 [employer] Efren Nicolas almendarez [facility] CPT-83193 Level 4 Est. Patient 13:55:46 [employer] Checo Conklin MD [facility] CPT-33175 Level 4 Est. Patient 17:10:53 CDT Checo Conklin MD [facility] CPT-13898 Level 3 Est. Patient 15:56:22 CDT Checo Conklin MD [facility] CPT-69887 Level 3 Est. Patient 15:29:07 CDT Checo Conklin MD [facility] CPT-16990 Level 3 Est. Patient 14:38:41 CDT Checo Conklin MD [facility] CPT-88113 Level 3 Est. Patient 15:22:03 [employer] Thomas reynolds DO [facility] CPT-51898 Level 3 Est. Patient 13:34:17 [employer] Checo Conklin MD [facility] CPT-76733 Level 3 Est. Patient 12:29:32 CDT Dangelo arroyo MD [facility] CPT-99414 Level 3 Est. Patient 16:53:02 CDT Checo Conklin MD [facility] CPT-96997 Level 3 Est. Patient 16:37:13 CDT Checo Conklin MD [facility] CPT-16025 Level 3 Est. Patient 16:16:59 CDT Paul Hamlin MD [facility] CPT-27127 Level 3 Est. Patient 14:20:13 CDT Dangelo arroyo MD [facility] CPT-70340 Level 4 Est. Patient 11:29:33 CDT Checo Conklin MD [facility] CPT-98885 Level 3 Est. Patient 17:08:31 CDT Checo Conklin MD [facility] CPT-09580 Level 3 Est. Patient 16:50:42 [employer] Checo Conklin MD [facility] CPT-41711 Level 4 Est. Patient 09:26:08 [employer] Checo Conklin MD [facility] CPT-48863 Level 3 Est. Patient 11:37:10 CDT Checo Conklin MD [facility] CPT-20820 Level 4 Est. Patient 14:07:38 CDT Checo Conklin MD [facility] CPT-52604 Level 3 Est. Patient 09:54:41 CDT Checo Conklin MD [facility] CPT-83714 Level 3 Est. Patient 11:10:54 CDT Paul Hamlin MD [facility] CPT-23743 Level 3 Est. Patient 14:16:56 [employer] Checo Conklin MD [facility] CPT-27064 Level 3 Est. Patient 11:04:11 [employer] Checo Conklin MD [facility] CPT-82237 Level 3 Est. Patient 17:09:26 CDT Dangelo arroyo MD [facility] CPT-98447 Level 3 Est. Patient 16:54:37 CDT Checo Conklin MD [facility] Procedures Code Procedure Name Date Entry Date Standard Desc ription CPT-11811 Abx/Therapy Injection 18:17:48 CDT CPT-J2550 Phenergan 25 mg (Promethazine) 16:48:23 CDT CPT-J1885 Toradol 60 mg 16:48:23 CDT CPT-63828 Wrist, right, comp 3V - XRAY USE ONLY 09:24:31 CDT CPT-32103 Abd compl w upright - XRAY USE ONLY 1 1:36:54 [employer] CPT-91312 UA w micro - LAB USE ONLY 17:06:46 CDT 2015 CPT-67494 BHCG Qual - LAB USE ONLY 17:06:46 CDT 05/06 CPT-59038 CMP - LAB USE ONLY 17:06:46 CDT CPT-68984 CBC with Diff - LAB USE ONLY 17:06:45 CDT 2 CPT-52722 Venipuncture Draw Fee 17:06:45 CDT CPT-LR Lesion Removal 19:53:27 CDT CPT-OV Office Visit 11:31:28 CDT CPT-19463 Tubersol 09:39:29 CDT CPT-J2550 Phenergan 25 mg (Promethazine) 13:59:02 [employer] CPT-J1885 Toradol 60 mg (Ketorolac) 13:59:02 [employer] 2012
--- OUTSIDE RECORDS SUMMARY | 2019-09-29 01:47 | XMS REPORT | Clinical Summary ---
Author Author Admin, Bethany Ayala [facility] Address Unknown Phone Unavailable [...] unspecified A D D 314.00 Inactive Checo Coknlin MD Attention deficit disorder of childhood without [...] Conklin MD PHARYNGITIS ICD-462 Ozzy Conklin MD OTITIS MEDIA-RIGHT ICD-382.9 Ozzy Conklin MD Insomnia ICD-780.52 Inactive Checo Joshua Breast mass, right ICD-611.72 Ozzy Conklin MD Onychomycosis, toenails ICD-110.1 Ozzy [...] richey MD Mastalgia ICD-611.71 Inactive Checo Joshua Sinusitis ICD-461.9 Inactive Checo Conklin MD Bacterial vaginosis ICD-616.10 Inactive Lenora Conklin MD Cough ICD-786.2 Inactive Checo Conklin MD 2016 Pedal edema ICD-782.3 Ozzy Conklin MD 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 Checo Conklin MD Abdominal pain, generalized ICD-789.07 Inactive Checo Conklin MD Urinary frequency ICD-788.41 Inactive Checo Conklin MD Pharyngitis ICD-462 Inactive Checo Conklin MD Sinusitis, acute ICD-461.9 Inactive Checo Ortiz MD Abdominal pain, generalized ICD-789.07 Inactive Checo Conklin MD Nausea ICD-787.02 Inactive Checo Conklin MD 201 02/15/12 Repeated falls ICD-781.99 Inactive Checo ngo MD Body Mass Index 25.0-25.9 Adult Inac tive Paul Hamlin MD Medication List Medication Instructions Start Date Stop Date Generic Name NDC Status Provider Patient Instruction KLOR-CON 10 10 MEQ ORAL TABLET EXTENDED RELEASE 1 daily with furosemide POTASSIUM CHLORIDE 71076376505 Active Paul Hmalin MD Active FUROSEMIDE 20 MG ORAL TABLET 1 daily for swelling FUROSEMIDE 62530967294 Active Paul Hamlin MD Active HYDROCHLOROTHIAZIDE 12.5 MG ORAL CAPSULE 1 po qd PRN Edema 01/10 HYDROCHLOROTHIAZIDE 89830809782 No Longer Active Paul Hamlin MD Active IBUPROFEN 800 MG ORAL TABLET 1 tab every 8 hours as needed for p ain IBUPROFEN 61461251696 No Longer Active Paul Hamlin MD Active PAROXETINE HCL 40 MG ORAL TABLET 1 po qd PAR OXETINE HCL 27962517979 Active Checo Conklin MD Active MIRALAX ORAL POWDER 8.5 to 17g po qd PRN Constipation POLYETHYLENE GLYCOL 3350 48755326240 No Longer Active Checo Conklin MD Active PROTONIX 40 MG ORAL TABLET DELAYED RELEASE 1 pill by m out daily, for acid reflux PANTOPRAZOLE SODIUM 47068830951 No Longer Activ e Corry Méndez LPN Active FLAGYL 500 MG ORAL TABLET 1 tablet by mouth bid 08/29 METRONIDAZOLE 88750040289 No Longer Active Corry Méndez LPN Active CLARITHROMYCIN 500 MG ORAL TABLET 1 tab po BID x 14 days CLARITHROMYCIN 27783328099 No Longer Active Corry Méndez LPN Active AMOXICILLIN 500 MG ORAL CAPSULE 2 po BID x 14 days for H. Pylori AMOXICILLIN 34742835677 No Longer Active Corry Méndez LPN Active FLUTICASONE PROPIONATE 50 MCG/ACT NASAL SUSPENSION 2 s prays/nostril qd PRN Congestion/Allergies FLUTICASONE PROPIONATE 1164821012 9 No Longer Active Checo Conklin MD Active AMOXICILLIN 500 MG ORAL CAPSULE 2 po BID x 10 days 201 01/15/27 AMOXICILLIN 67467876520 No Longer Active Checo Conklin MD Activ e CLARITIN 10 MG ORAL TABLET 1 tablet by mouth daily as needed for allergies LORATADINE 01864024432 No Longer Active Checo Ortiz MD Active BACTRIM DS 800-160 MG ORAL TABLET 1 tab by mouth twice daily 201 12/19/26 TRIMETHOPRIM-SULFAMETHOXAZOLE 41436496559 No Longer Active Ragini Carrillo MD Active DIFLUCAN 150 MG ORAL TABLET 1 tablet by mouth qod 2015 FLUCONAZOLE 56371888144 No Longer Active Efren Medel [employer] Act mike AZITHROMYCIN 250 MG ORAL TABLET 2 po qd x 1 day, then 1 po q d x 4 days AZITHROMYCIN 86536345473 No Longer Active Efren flores [employer] Active FLAGYL 500 MG ORAL TABLET 1 tablet by mouth bid 04/13 METRONIDAZOLE 84308364244 No Longer Active Checo Conklin MD Acti ve FOCALIN XR 10 MG ORAL CAPSULE EXTENDED RELEASE 24 HOUR 1 po q a.m. DEXMETHYLPHENIDATE HCL 00635285919 Active Checo Conklin MD Active MAGNESIUM CITRATE 1.745 GM/30ML ORAL SOLUTION 150ml po BID P RN Constipation MAGNESIUM CITRATE 15445091044 No Longer Active Checo Conklin MD Active BACTROBAN 2 % EXTERNAL CREAM Apply to affected area BID for up to 10 days MUPIROCIN CALCIUM 97845479679 No Longer Active Checo Conklin MD Active HYDROCODONE-ACETAMINOPHEN 5-325 MG ORAL TABLET 1 tab b y mouth every 6 hours as needed HYDROCODONE-ACETAMINOPHEN 36668176105 No Longer Active Checo Conklin MD Active IBUPROFEN 800 MG ORAL TABLET 1 tab every 8 hours with food 03/20 IBUPROFEN 87073079924 No Longer Active Checo Conklin MD Active DIFLUCAN 150 MG ORAL TABLET 1 tablet by mouth if neede d, hold until symptoms start FLUCONAZOLE 52796245668 No Longer Active Checo Conklin MD Active BACTRIM DS 800-160 MG ORAL TABLET 1 tab by mouth twice daily 201 11/23/03 TRIMETHOPRIM-SULFAMETHOXAZOLE 97432175538 No Longer Active K bernice Méndez LPN Active HYDROCODONE-ACETAMINOPHEN 5-325 MG ORAL TABLET 0.5 to 1 tab by mouth every 6 hours as needed HYDROCODONE-ACETAMINOPHEN 91885862507 No Longer Active Checo Conklin MD Active ONDANSETRON 8 MG ORAL TABLET DISINTEGRATING place one tablet on tongue and allow to dissolve every 6 hours as needed for vomitting ONDANSETRON 54766427356 No Longer Active Checo Conklin MD Activ e COMPRO 25 MG RECTAL SUPPOSITORY insert or apply one garza ppository rectally as directed every 12 hours as needed for nausea PROCHLORPERAZINE 36774689435 No Longer Active Checo Conklin MD A ctive SUMATRIPTAN SUCCINATE 100 MG ORAL TABLET Take one PRN for migran e SUMATRIPTAN SUCCINATE 97648228641 No Longer Active Checo Conklin MD Active TRAVEL SICKNESS 25 MG ORAL TABLET CHEWABLE chew and sw allow one tablet every 6 hours as needed MECLIZINE HCL 56656854007 No Longer A ctive Checo Conklin MD Active BUPROPION HCL ER (SR) 100 MG ORAL TABLET EXTENDED RELE ASE 12 HOUR take one tablet by mouth one time daily for one week then take 1 two times daily BUPROPION HCL 13379743954 No Longer Active Checo gallagher MD Active TERBINAFINE HCL 250 MG ORAL TABLET take one table PO one time da moises TERBINAFINE HCL 12329125659 No Longer Active Checo Conklin MD Active METOCLOPRAMIDE HCL 10 MG ORAL TABLET take one PO tid PRN nausea METOCLOPRAMIDE HCL 57865671250 No Longer Active Checo Conklin MD Active DICLOFENAC SODIUM 75 MG ORAL TABLET DELAYED RELEASE 1 tablet by mouth twice daily PRN Knee pain DICLOFENAC SODIUM 92266084522 No Longer Active Checo Conklin MD Active LAMISIL 250 MG ORAL TABLET 1 po qd TERBINAFI NE HCL 73182306649 No Longer Active Checo Conklin MD Active REGLAN 10 MG ORAL TABLET 1 po TID PRN Nausea 3 METOCLOPRAMIDE HCL 00144858435 No Longer Active Checo Conklin MD Active CELEXA 20 MG ORAL TABLET 1 tablet by mouth daily 09/26 CITALOPRAM HYDROBROMIDE 46055960269 No Longer Active Checo Conklin MD Active AZITHROMYCIN 250 MG ORAL TABLET 2 po qd x 1 day, then 1 po q d x 4 days AZITHROMYCIN 21797900656 No Longer Active Checo Ortiz MD Active HYDROCODONE-ACETAMINOPHEN 5-325 MG ORAL TABLET 1 po q 6hr PRN Pa in HYDROCODONE-ACETAMINOPHEN 81947578081 No Longer Active Lenora Conklin MD Active PHENAZOPYRIDINE HCL 200 MG ORAL TABLET take 1 tab po TID for bladder pain PHENAZOPYRIDINE HCL 09864131034 No Longer Active Joe Conklin MD Active CIPRO 500 MG ORAL TABLET 1 tablet by mouth twice daily CIPROFLOXACIN HCL 67158233085 No Longer Active Dangelo Rangel MD Active HYDROCODONE-ACETAMINOPHEN 5-325 MG ORAL TABLET 1/2 to 1 po q 4 hours prn cough HYDROCODONE-ACETAMINOPHEN 37208278671 No Longer Activ candy Rangel MD Active BACTRIM DS 800-160 MG ORAL TABLET 1 po BID x 7 days 29/04/10 SULFAMETHOXAZOLE-TRIMETHOPRIM 66496118860 No Longer Active Checo Conklin MD Active PREDNISONE 20 MG ORAL TABLET 2 tabs daily for 3 days, 1 tab daily for 3 days, 1/2 tab daily for 2 days PREDNISONE 22486691763 No Longer Active Checo Conklin MD Active TRIAMCINOLONE ACETONIDE 0.1 % EXTERNAL OINTMENT Apply to affected areas TID for up to 2 weeks TRIAMCINOLONE ACETONIDE 87633122592 No Longer Active Checo Conklin MD Active CEFDINIR 300 MG ORAL CAPSULE by mouth twice a day 2013 CEFDINIR 87303474111 No Longer Active Dangelo Rangel MD Acti ve BUPROPION HCL ER (SMOKING DET) 150 MG ORAL TABLET EXTE NDED RELEASE 12 HOUR 1 a day for 1 week then 1 twice a day BUPROPION HCL (SMOKING DETER) 27284048264 No Longer Active Checo Conklin MD Active SIMVASTATIN 20 MG ORAL TABLET 1 po qd SIMVASTAT IN 72236059217 Active Checo Conklin MD Active CHANTIX STARTING MONTH KARTHIK 0.5 MG X 11 & 1 MG X 42 ORA L TABLET 0.5mg daily for 3 days, then 0.5mg BID for 4 days, then 1mg BID VARENICLINE TARTRATE 89945515149 No Longer Active Checo Conklin MD Activ e XANAX 0.5 MG ORAL TABLET 1 po BID PRN anxiety A LPRAZOLAM 50250863233 Active Thomas Marks DO Active CONCERTA 18 MG ORAL TABLET EXTENDED RELEASE 1 po q a.m. METHYLPHENIDATE HCL 94110477275 No Longer Active Checo Conklin MD Active AMBIEN 5 MG ORAL TABLET 1 po qHS PRN Insomnia Z OLPIDEM TARTRATE 96147239019 Active Thomas Marks DO Active TRAZODONE HCL 100 MG ORAL TABLET 0.5 to 1 po qHS PRN Insomnia 20 30/07/08 TRAZODONE HCL 82734683904 No Longer Active Checo Conklin MD Active FIORICET 325-50-40 MG TAB 1 tablet by mouth four times daily as needed JIGLFYVTRCIGE-ABAR-RFJTEQKTRA 54258665765 No Longer Active Checo Conklin MD Active PHENERGAN CREAM* 25mg applied to wrist q6hr PRN Nausea PHENERGAN CREAM* No Longer Active Checo Conklin MD A ctive FLONASE 50 MCG/ACT NASAL SUSPENSION 1 spray each nostril am and hs FLUTICASONE PROPIONATE 38869506339 No Longer Active Checo Conklin MD Active ANTIPYRINE-BENZOCAINE 5.4-1.4 % OTIC SOLUTION 1-2 drops in affec yohannes ear BENZOCAINE-ANTIPYRINE 94292835011 No Longer Active Checo Conklin MD Active CEFDINIR 300 MG ORAL CAPSULE 1 po bid CEFDINIR 12727997930 No Longer Active Checo Conklin MD Active PREDNISONE 20 MG ORAL TABLET 2 tabs daily for 3 days, 1 tab daily for 3 days, 1/2 tab daily for 2 days PREDNISONE 84405975703 No Longer Active Checo Conklin MD Active AZITHROMYCIN 250 MG ORAL TABLET 2 po qd x 1 day, then 1 po q d x 4 days AZITHROMYCIN 74401706230 No Longer Active Checo Ortiz MD Active PREDNISONE 20 MG ORAL TABLET 2 tabs daily for 3 days, 1 tab daily for 3 days, 1/2 tab daily for 2 days PREDNISONE 80077095199 No Longer Active Checo Conklin MD Active ZITHROMAX Z-KARTHIK 250 MG ORAL TABLET 2 today, then 1 daily for 4 d ays AZITHROMYCIN 87032610449 No Longer Active Paul Hamlin MD Active FOCALIN XR 10 MG ORAL CAPSULE EXTENDED RELEASE 24 HOUR 1 po q a. m. DEXMETHYLPHENIDATE HCL 42116399971 No Longer Active Paul Hamlin MD Active PERCOCET 10-325 MG ORAL TABLET 1 tablet every 6 hours as needed for pain OXYCODONE-ACETAMINOPHEN 04724313025 No Longer Active Paul Hamlin MD Active LORTAB 5-500 MG ORAL TABLET 1/2 to 1 tablet by mouth e very 4 hours as needed for pain HYDROCODONE-ACETAMINOPHEN 75591758918 No Longer Active Checo Conklin MD Active FOCALIN XR 15 MG ORAL CAPSULE EXTENDED RELEASE 24 HOUR 1 po q a. m. DEXMETHYLPHENIDATE HCL 23403738578 No Longer Active Checo Conklin MD Active ZOFRAN ODT 4 MG ORAL TABLET DISINTEGRATING 1 po q6hr PRN Nausea ONDANSETRON 75839956470 No Longer Active Checo Conklin MD Active PERCOCET 5-325 MG ORAL TABLET 1 tablet by mouth every 6 hour s as needed OXYCODONE-ACETAMINOPHEN 00279665934 No Longer Active Checo Conklin MD Active PYRIDIUM 200 MG ORAL TABLET take 1 tab po TID prn urinary pain. PHENAZOPYRIDINE HCL 13381922513 No Longer Active Checo Joshua Active FLUCONAZOLE 150 MG ORAL TABLET take 1 tab po qday once FLUCONAZOLE 58449517382 No Longer Active Dangelo Rangel MD Acti ve CIPRO 500 MG ORAL TABLET 1 tablet by mouth twice daily CIPROFLOXACIN HCL 38005281365 No Longer Active Dangelo Rangel MD Active PYRIDIUM 200 MG ORAL TABLET take 1 tab po TID prn urinary pain. PYRIDIUM 200 MG ORAL TABLET 6372211 PHENAZOPYRIDINE HCL Inactive PERCOCET 5-325 MG ORAL TABLET 1 tablet by mouth every 6 hour s as needed PERCOCET 5-325 MG ORAL TABLET 8876747 OXYCODONE-ACETAMINOPHEN Inactive ZOFRAN ODT 4 MG ORAL TABLET DISINTEGRATING 1 po q6hr PRN Nausea ZOFRAN ODT 4 MG ORAL TABLET DISINTEGRATING 475183 ONDAN SETRON Inactive FOCALIN XR 15 MG [...] for pain PERCOCET 10-325 MG ORAL TABLET 4726740 OXYCODONE-ACETAMI NOPHEN Inactive FOCALIN XR 10 MG ORAL CAPSULE EXTENDED RELEASE 24 HOUR 1 po q a. m. FOCALIN XR 10 MG ORAL CAPSULE EXTENDED RELEASE 24 HOUR DEXMETHYLPHENIDATE HCL Inactive CEFDINIR 300 MG ORAL CAPSULE 1 po bid CEFDINI R 300 MG ORAL CAPSULE 026622 CEFDINIR Inactive ANTIPYRINE-BENZOCAINE 5.4-1.4 % OTIC SOLUTION 1-2 drops in affec yohannes ear ANTIPYRINE-BENZOCAINE 5.4-1.4 % OTIC SOLUTION BENZOCAINE-ANTIPYRINE Inactive FLONASE 50 MCG/ACT NASAL SUSPENSION 1 spray each nostril am and hs FLONASE 50 MCG/ACT NASAL SUSPENSION 0447572 FLUTICASONE PROPIONATE I nactive PHENERGAN CREAM* 25mg applied to wrist q6hr PRN Nausea PHENERGAN CREAM* Inactive FIORICET 325-50-40 MG TAB 1 tablet by mouth four times daily as needed FIORICET 325-50-40 MG TAB ACETAMINOPHEN-C AFF-BUTALBITAL Inactive TRAZODONE HCL 100 MG ORAL TABLET 0.5 to 1 po qHS PRN Insomnia 20 30/07/08 TRAZODONE HCL 100 MG ORAL TABLET 251680 TRAZODONE HCL Inactive CONCERTA 18 MG ORAL [...] cough HYDROCODONE-ACETAMINOPHEN 5-325 MG ORAL TABLET 8 60225 HYDROCODONE-ACETAMINOPHEN Inactive PHENAZOPYRIDINE HCL 200 MG ORAL TABLET take 1 tab po TID for bladder pain PHENAZOPYRIDINE HCL 200 MG ORAL TABLET 6443036 PHENAZOPYRIDINE HCL Inactive HYDROCODONE-ACETAMINOPHEN 5-325 MG ORAL TABLET 1 po q 6hr PRN Pa in HYDROCODONE-ACETAMINOPHEN 5-325 MG ORAL TABLET 939631 HYDROCODONE-ACETAMINOPHEN Inactive CELEXA 20 MG ORAL TABLET 1 tablet by mouth daily 09/26 CELEXA 20 MG ORAL TABLET 376065 CITALOPRAM HYDROBROMIDE Inactive REGLAN 10 MG ORAL TABLET 1 po TID PRN Nausea 3 REGLAN 10 MG ORAL TABLET 708213 METOCLOPRAMIDE HCL Inactive LAMISIL 250 MG ORAL TABLET 1 po qd L AMISIL 250 MG ORAL TABLET 394755 TERBINAFINE HCL Inactive DICLOFENAC SODIUM 75 MG ORAL TABLET DELAYED RELEASE 1 tablet by mouth twice daily PRN Knee pain DICLOFENAC SODIUM 75 MG ORAL TABLET DELAYED RELEASE 640156 DICLOFENAC SODIUM Inactive METOCLOPRAMIDE HCL 10 MG ORAL TABLET take one PO tid PRN nausea METOCLOPRAMIDE HCL 10 MG ORAL TABLET 167495 METOCLOPRAM ZACH HCL Inactive TERBINAFINE HCL 250 MG ORAL TABLET take one table PO one time da moises TERBINAFINE HCL 250 MG ORAL TABLET 414719 TERBINAFINE H CL Inactive BUPROPION HCL ER [...] SICKNESS 25 M G ORAL TABLET CHEWABLE 501314 MECLIZINE HCL Inactive SUMATRIPTAN SUCCINATE 100 MG ORAL TABLET Take one PRN for migran e SUMATRIPTAN SUCCINATE 100 MG ORAL TABLET 360062 SUMATRIPTAN SUCCINATE Inactive COMPRO 25 MG RECTAL SUPPOSITORY insert or apply one garza ppository rectally as directed every 12 hours as needed for nausea COMPRO 25 MG RECTAL SUPPOSITORY 064899 PROCHLORPERAZINE Inactive ONDANSETRON 8 MG ORAL TABLET DISINTEGRATING place one tablet on tongue and allow to dissolve every 6 hours as needed for vomitting ONDANSETRON 8 MG ORAL TABLET DISINTEGRATING 305362 ONDANSETRON Inactive HYDROCODONE-ACETAMINOPHEN 5-325 MG ORAL TABLET 0.5 to 1 tab by mouth every 6 hours as needed HYDROCODONE-ACETAMIN OPHEN 5-325 MG ORAL TABLET 987871 HYDROCODONE-ACETAMINOPHEN Inactive BACTRIM DS 800-160 MG ORAL TABLET 1 tab by mouth twice daily 201 11/23/03 BACTRIM DS 800-160 MG ORAL TABLET 983536 TRIMETHOPRIM-SULFAMETHOXAZOLE Inactive DIFLUCAN 150 MG ORAL TABLET 1 tablet by mouth if neede d, hold until symptoms start DIFLUCAN 150 MG ORAL TABLET 991399 FLUCONAZ OLE Inactive IBUPROFEN 800 MG ORAL TABLET 1 tab every 8 hours with food 03/20 IBUPROFEN 800 MG ORAL TABLET 628047 IBUPROFEN Krupa ctive HYDROCODONE-ACETAMINOPHEN 5-325 MG ORAL TABLET 1 tab b y mouth every 6 hours as needed HYDROCODONE-ACETAMINOPHEN 5-325 MG ORAL TABLET 343045 HYDROCODONE-ACETAMINOPHEN Inactive BACTROBAN 2 % EXTERNAL CREAM Apply to affected area BID for up to 10 days BACTROBAN 2 % EXTERNAL CREAM 166737 MUPIROCIN CA LCIUM Inactive MAGNESIUM CITRATE 1.745 GM/30ML ORAL SOLUTION 150ml po BID P RN Constipation MAGNESIUM CITRATE 1.745 GM/30ML ORAL SOLUTION 10 17770 MAGNESIUM CITRATE Inactive DIFLUCAN 150 MG ORAL TABLET 1 tablet by mouth qod 2015 DIFLUCAN 150 MG ORAL TABLET 525080 FLUCONAZOLE Inactive BACTRIM DS 800-160 MG ORAL TABLET 1 tab by mouth twice daily 201 12/19/26 BACTRIM DS 800-160 MG ORAL TABLET 569284 TRIMETHOPRIM-SULFAMETHOXAZOLE Inactive CLARITIN 10 MG ORAL TABLET 1 tablet by mouth daily as needed for allergies CLARITIN 10 MG ORAL TABLET 543112 LORATADINE I nactive FLUTICASONE PROPIONATE 50 MCG/ACT NASAL SUSPENSION 2 s prays/nostril qd PRN Congestion/Allergies FLUTICASONE PROPION ATE 50 MCG/ACT NASAL SUSPENSION 6019282 FLUTICASONE PROPIONATE Inactive MIRALAX ORAL POWDER 8.5 to 17g po qd PRN Constipation MIRALAX ORAL POWDER 314072 POLYETHYLENE GLYCOL 3350 Inactive IBUPROFEN 800 MG ORAL TABLET 1 tab every 8 hours as needed for p ain IBUPROFEN 800 MG ORAL TABLET 955109 IBUPROFEN Krupa ctive HYDROCHLOROTHIAZIDE 12.5 MG ORAL CAPSULE 1 po qd PRN Edema 01/10 HYDROCHLOROTHIAZIDE 12.5 MG ORAL CAPSULE 643686 HYDROCH LOROTHIAZIDE Inactive CIPRO 500 MG ORAL TABLET 1 tablet by mouth twice daily CIPRO 500 MG ORAL TABLET 330087 CIPROFLOXACIN HCL Inactive FLUCONAZOLE 150 MG ORAL TABLET take 1 tab po qday once FLUCONAZOLE 150 MG ORAL TABLET 825352 FLUCONAZOLE Inactive ZITHROMAX Z-KARTHIK 250 MG ORAL TABLET 2 today, then 1 daily for 4 d ays ZITHROMAX Z-KARTHIK 250 MG ORAL TABLET 825223 AZITHROMYCIN Inactive PREDNISONE 20 MG ORAL TABLET 2 tabs daily for 3 days, 1 tab daily for 3 days, 1/2 tab daily for 2 days PREDNISONE 20 MG ORAL T ABLET 751692 PREDNISONE Inactive AZITHROMYCIN 250 MG ORAL TABLET 2 po qd x 1 day, then 1 po q d x 4 days AZITHROMYCIN 250 MG ORAL TABLET 726404 AZITHROMY SPARKLE Inactive PREDNISONE 20 MG ORAL TABLET 2 tabs daily for 3 days, 1 tab daily for 3 days, 1/2 tab daily for 2 days PREDNISONE 20 MG ORAL TABLET 050119 PREDNISONE Inactive CEFDINIR 300 MG ORAL CAPSULE by mouth twice a day 2013 CEFDINIR 300 MG ORAL CAPSULE 281622 CEFDINIR Inactive TRIAMCINOLONE ACETONIDE 0.1 % EXTERNAL OINTMENT Apply to affected areas TID for up to 2 weeks TRIAMCINOLONE ACETON ZACH 0.1 % EXTERNAL OINTMENT 5215612 TRIAMCINOLONE ACETONIDE Inactive PREDNISONE 20 MG ORAL TABLET 2 tabs daily for 3 days, 1 tab daily for 3 days, 1/2 tab daily for 2 days PREDNISONE 20 MG ORAL T ABLET 014301 PREDNISONE Inactive BACTRIM DS 800-160 MG ORAL TABLET 1 po BID x 7 days 29/04/10 BACTRIM DS 800-160 MG ORAL TABLET 142637 SULFAMETHOXAZOLE-TRIMETHOP RIM Inactive CIPRO 500 MG ORAL TABLET 1 tablet by mouth twice daily CIPRO 500 MG ORAL TABLET 509089 CIPROFLOXACIN HCL Inactive AZITHROMYCIN 250 MG ORAL TABLET 2 po qd x 1 day, then 1 po q d x 4 days AZITHROMYCIN 250 MG ORAL TABLET 367591 AZITHROMY SPARKLE Inactive FLAGYL 500 MG ORAL TABLET 1 tablet by mouth bid 04/13 FLAGYL 500 MG ORAL TABLET 198378 METRONIDAZOLE Inactive AZITHROMYCIN 250 MG ORAL TABLET 2 po qd x 1 day, then 1 po q d x 4 days AZITHROMYCIN 250 MG ORAL TABLET 407185 AZITHROMY SPARKLE Inactive AMOXICILLIN 500 MG ORAL CAPSULE 2 po BID x 10 days 201 01/15/27 AMOXICILLIN 500 MG ORAL CAPSULE 276289 AMOXICILLIN Inactive AMOXICILLIN 500 MG ORAL CAPSULE 2 po BID x 14 days for H. Pylori AMOXICILLIN 500 MG ORAL CAPSULE 519245 AMOXICILLIN Inactive CLARITHROMYCIN 500 MG ORAL TABLET 1 tab po BID x 14 days CLARITHROMYCIN 500 MG ORAL TABLET 019414 CLARITHROMYCIN Inacti ve FLAGYL 500 MG ORAL TABLET 1 tablet by mouth bid 08/29 FLAGYL 500 MG ORAL TABLET 171348 METRONIDAZOLE Inactive PROTONIX 40 MG ORAL TABLET DELAYED RELEASE 1 pill by m outh daily, for acid reflux PROTONIX 40 MG ORAL TABLET DELAYED RELEAS E 382130 PANTOPRAZOLE SODIUM Inactive Immunizations Vaccine Administration Date [...] 11 .6-14.8 platelet count 215 10^3/MM^3 10*3/mm3 828-822 0905/11/28 erythrocyte (RBC) count 4.17 10^6/MM^3 10*6/mm3 3.80-5.8 0 lymphocytes as percent of blood leukocytes 23.9 % 20.5-51.1 monocytes as percent of blood leukocytes 7.3 % 1.7-9.3 neutrophils as percent of blood leukocytes 66.5 % 42.2-75.2 leukocyte count, blood 7.6 10^3/MM^3 10*3/mm3 4.6-10.2 Lab Report: Comp. Metabolic Panel, B-Typ e Natriuretic Peptide, Free Thyr ... - Chemistry sodium, serum 138 mmol/L 668-249 6130/06/27 creatinine, serum 0.61 mg/dL 0.60-1.30 alanine aminotransferase (SGPT), serum 28 U/L 12-78 aspartate aminotransferase (SGOT), serum 20 U/L 15-37 calcium, serum 9.3 mg/dL 8.5-10.1 bilirubin, serum, total 0.60 mg/dL 0.00-1.00 thyroxine, serum, free 0.70 ng/dL 0.59-1.17 TSH 2.81 m[iU]/mL 0.36-3.74 carbon dioxide, venous blood 30.3 mmol/L 21.0-32 .0 potassium, serum 4.4 mmol/L 3.5-5.2 chloride, serum 102 mmol/L 98-107 blood glucose 95 mg/dL 65-95 urea nitrogen, blood 11 mg/dL 7-18 Lab Report: Comp. Metabolic Panel, Eryth rocyte Sed Rate, UADIP W/MICRO, ... - Chemistry sodium, serum 139 mmol/L 502-102 7403/11/28 carbon dioxide, venous blood 26.0 mmol/L 21.0-32 [...] Neg ative urobilinogen, urine, semiquantitative (dipstick) 0.2 E .U./dL Normal leukocyte esterase, urine, by dipstick Negative Negative nitrite, urine, semiquantitative Negative Neg ative appearance, urine Clear Clear specific gravity, urine 1.015 1.000-1.030 pH, urine, semiquantitative 6.5 5.0-8.5 urine color Yellow Colorless;Lightyellow;St raw;Yellow ketones, urine, by test strip Negative Negati ve bilirubin, urine Negative Negative Encounters Code Encounter Date Provider Facility CPT-43049 Level 3 Est. Patient 16:46:51 CDT Thomas reynolds DO [facility] CPT-60671 [id number] Vst-Est Level III 14:40:49 CDT Paul Hamlin MD [facility] CPT-41553 Level 4 Est. Patient 11:08:43 CDT Checo Conklin MD [facility] CPT-42269 [id number] Vst-Est Level III 09:37:41 CDT Dangelo Rangel MD [facility] CPT-76649 Level 4 Est. Patient 08:57:51 [employer] Checo Conklin MD [facility] CPT-83558 Level 3 Est. Patient 11:24:55 [employer]IST Efren almendarez APRN [facility] CPT-01501 Level 3 Est. Patient 13:05:44 CDT Paul Hamlin MD [facility] CPT-88168 Level 3 Est. Patient 11:29:55 CDT Checo Conklin MD [facility] CPT-40778 Level 4 Est. Patient 11:08:12 [employer]IST Checo Conklin MD [facility] CPT-38701 Level 4 Est. Patient 16:06:48 [employer] SPECIALIST Checo Conklin MD [facility] CPT-92621 Level 3 Est. Patient 09:11:49 CDT Jillina F razell [facility] CPT-65564 Level 2 Est. Patient 19:53:27 CDT Tanner hill MD [facility] CPT-07468 Level 3 Est. Patient 09:15:34 CDT Efren Nicolas almendarez [facility] CPT-34233 Level 3 Est. Patient 11:28:51 [employer]IST Efren Nicolas almendarez [facility] CPT-70800 Level 4 Est. Patient 13:55:46 [employer] SPECIALIST Checo Conklin MD [facility] CPT-29546 Level 4 Est. Patient 17:10:53 CDT Checo Conklin MD [facility] CPT-86637 Level 3 Est. Patient 15:56:22 CDT Checo Conklin MD [facility] CPT-30076 Level 3 Est. Patient 15:29:07 CDT Checo Conklin MD [facility] CPT-96558 Level 3 Est. Patient 14:38:41 CDT Checo Conklin MD [facility] CPT-39788 Level 3 Est. Patient 15:22:03 [employer]IST Thomas reynolds DO [facility] CPT-60173 Level 3 Est. Patient 13:34:17 [employer]IST Checo Conklin MD [facility] CPT-52304 Level 3 Est. Patient 12:29:32 CDT Dangelo arroyo MD [facility] CPT-54080 Level 3 Est. Patient 16:53:02 CDT Checo Conklin MD [facility] CPT-83046 Level 3 Est. Patient 16:37:13 CDT Checo Conklin MD [facility] CPT-93029 Level 3 Est. Patient 16:16:59 CDT Paul Hamlin MD [facility] CPT-24279 Level 3 Est. Patient 14:20:13 CDT Dangelo arroyo MD [facility] CPT-47924 Level 4 Est. Patient 11:29:33 CDT Checo Conklin MD [facility] CPT-12009 Level 3 Est. Patient 17:08:31 CDT Checo Conklin MD [facility] CPT-69706 Level 3 Est. Patient 16:50:42 [employer]IST Checo Conklin MD [facility] CPT-27462 Level 4 Est. Patient 09:26:08 [employer] Checo Conklin MD [facility] CPT-64900 Level 3 Est. Patient 11:37:10 CDT Checo Conklin MD [facility] CPT-99292 Level 4 Est. Patient 14:07:38 CDT Checo Conklin MD [facility] CPT-47101 Level 3 Est. Patient 09:54:41 CDT Checo Conklin MD [facility] CPT-31462 Level 3 Est. Patient 11:10:54 CDT Paul Hamlin MD [facility] CPT-88364 Level 3 Est. Patient 14:16:56 [employer]IST Checo Conklin MD [facility] CPT-21429 Level 3 Est. Patient 11:04:11 [employer] Checo Conklin MD [facility] CPT-63101 Level 3 Est. Patient 17:09:26 CDT Dangelo arroyo MD [facility] CPT-13119 Level 3 Est. Patient 16:54:37 CDT Checo Conklin MD [facility] Procedures Code Procedure Name Date Entry Date Standard Desc ription CPT-86648 Abx/Therapy Injection 18:17:48 CDT CPT-J2550 Phenergan 25 mg (Promethazine) 16:48:23 CDT CPT-J1885 Toradol 60 mg 16:48:23 CDT CPT-53524 Wrist, right, comp 3V - XRAY USE ONLY 09:24:31 CDT CPT-29187 Abd compl w upright - XRAY USE ONLY 1 1:36:54 [employer] CPT-92550 UA w micro - LAB USE ONLY 17:06:46 CDT 2015 CPT-89574 BHCG Qual - LAB USE ONLY 17:06:46 CDT 05/06 CPT-62200 CMP - LAB USE ONLY 17:06:46 CDT CPT-68828 CBC with Diff - LAB USE ONLY 17:06:45 CDT 2 CPT-59832 Venipuncture Draw Fee 17:06:45 CDT CPT-LR Lesion Removal 19:53:27 CDT CPT-OV Office Visit 11:31:28 CDT CPT-50396 Tubersol 09:39:29 CDT CPT-J2550 Phenergan 25 mg (Promethazine) 13:59:02 [employer] CPT-J1885 Toradol 60 mg (Ketorolac) 13:59:02 [employer]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
--- OUTSIDE RECORDS SUMMARY | 2019-09-29 01:48 | XMS REPORT | Clinical Summary ---
Author Author Admin, Bethany Ayala [facility] Address Unknown Phone Unavailable [...] Conklin MD 2014 Abscess, skin ICD-682.9 Inactive Cheoc richey MD Bacterial vaginosis ICD-616.10 Inactive Lenora [...] RELEASE 1 daily with furosemide POTASSIUM CHLORIDE 51204130271 Active Paul Hamlin MD Active FUROSEMIDE 20 MG ORAL TABLET 1 daily for swelling FUROSEMIDE 56678148357 Active Paul Hamlin MD Active HYDROCHLOROTHIAZIDE 12.5 MG ORAL CAPSULE 1 po qd PRN Edema 01/10 HYDROCHLOROTHIAZIDE 47279880546 No Longer Active Paul Hamlin MD Active IBUPROFEN 800 MG ORAL TABLET 1 tab every 8 hours as needed for p ain IBUPROFEN 39595774572 No Longer Active Paul Hamlin MD Active PAROXETINE HCL 40 MG ORAL TABLET 1 po qd PAR OXETINE HCL 75203282615 Active Checo Conklin MD Active MIRALAX ORAL POWDER 8.5 to 17g po qd PRN Constipation POLYETHYLENE GLYCOL 3350 80654844261 No Longer Active Checo Conklin MD Active PROTONIX 40 MG ORAL TABLET DELAYED RELEASE 1 pill by m out daily, for acid reflux PANTOPRAZOLE SODIUM 05657589780 No Longer Activ e Corry Méndez LPN Active FLAGYL 500 MG ORAL TABLET 1 tablet by mouth bid 08/29 METRONIDAZOLE 56192045948 No Longer Active Corry Méndez LPN Active CLARITHROMYCIN 500 MG ORAL TABLET 1 tab po BID x 14 days CLARITHROMYCIN 42984813723 No Longer Active Corry Méndez LPN Active AMOXICILLIN 500 MG ORAL CAPSULE 2 po BID x 14 days for H. Pylori AMOXICILLIN 82188262561 No Longer Active Corry Méndez LPN Active FLUTICASONE PROPIONATE 50 MCG/ACT NASAL SUSPENSION 2 s prays/nostril qd PRN Congestion/Allergies FLUTICASONE PROPIONATE 7609300563 9 No Longer Active Checo Conklin MD Active AMOXICILLIN 500 MG ORAL CAPSULE 2 po BID x 10 days 201 01/15/27 AMOXICILLIN 22364849549 No Longer Active Checo Conklin MD Activ e CLARITIN 10 MG ORAL TABLET 1 tablet by mouth daily as needed for allergies LORATADINE 96200081651 No Longer Active Checo Ortiz MD Active BACTRIM DS 800-160 MG ORAL TABLET 1 tab by mouth twice daily 201 12/19/26 TRIMETHOPRIM-SULFAMETHOXAZOLE 83854799215 No Longer Active Ragini Carrillo MD Active DIFLUCAN 150 MG ORAL TABLET 1 tablet by mouth qod 2015 FLUCONAZOLE 35402225579 No Longer Active Efren Medel FASHION MARKETER Act mike AZITHROMYCIN 250 MG ORAL TABLET 2 po qd x 1 day, then 1 po q d x 4 days AZITHROMYCIN 39182846651 No Longer Active Efren flores FASHION MARKETER Active FLAGYL 500 MG ORAL TABLET 1 tablet by mouth bid 04/13 METRONIDAZOLE 15188299830 No Longer Active Checo Conklin MD Acti ve FOCALIN XR 10 MG ORAL CAPSULE EXTENDED RELEASE 24 HOUR 1 po q a.m. DEXMETHYLPHENIDATE HCL 22584141788 Active Checo Conklin MD Active MAGNESIUM CITRATE 1.745 GM/30ML ORAL SOLUTION 150ml po BID P RN Constipation MAGNESIUM CITRATE 55533593227 No Longer Active Checo Conklin MD Active BACTROBAN 2 % EXTERNAL CREAM Apply to affected area BID for up to 10 days MUPIROCIN CALCIUM 64741035993 No Longer Active Checo Conklin MD Active HYDROCODONE-ACETAMINOPHEN 5-325 MG ORAL TABLET 1 tab b y mouth every 6 hours as needed HYDROCODONE-ACETAMINOPHEN 29979226630 No Longer Active Checo Conklin MD Active IBUPROFEN 800 MG ORAL TABLET 1 tab every 8 hours with food 03/20 IBUPROFEN 07370681531 No Longer Active Checo Conklin MD Active DIFLUCAN 150 MG ORAL TABLET 1 tablet by mouth if neede d, hold until symptoms start FLUCONAZOLE 76598179764 No Longer Active Checo Conklin MD Active BACTRIM DS 800-160 MG ORAL TABLET 1 tab by mouth twice daily 201 11/23/03 TRIMETHOPRIM-SULFAMETHOXAZOLE 69075732094 No Longer Active K bernice Méndez LPN Active HYDROCODONE-ACETAMINOPHEN 5-325 MG ORAL TABLET 0.5 to 1 tab by mouth every 6 hours as needed HYDROCODONE-ACETAMINOPHEN 14549408865 No Longer Active Checo Conklin MD Active ONDANSETRON 8 MG ORAL TABLET DISINTEGRATING place one tablet on tongue and allow to dissolve every 6 hours as needed for vomitting ONDANSETRON 56540753671 No Longer Active Checo Conklin MD Activ e COMPRO 25 MG RECTAL SUPPOSITORY insert or apply one garza ppository rectally as directed every 12 hours as needed for nausea PROCHLORPERAZINE 86902172958 No Longer Active Checo Conklin MD A ctive SUMATRIPTAN SUCCINATE 100 MG ORAL TABLET Take one PRN for migran e SUMATRIPTAN SUCCINATE 81244949122 No Longer Active Checo Conklin MD Active TRAVEL SICKNESS 25 MG ORAL TABLET CHEWABLE chew and sw allow one tablet every 6 hours as needed MECLIZINE HCL 61163269323 No Longer A ctive Checo Conklin MD Active BUPROPION HCL ER (SR) 100 MG ORAL TABLET EXTENDED RELE ASE 12 HOUR take one tablet by mouth one time daily for one week then take 1 two times daily BUPROPION HCL 21471053985 No Longer Active Checo gallagher MD Active TERBINAFINE HCL 250 MG ORAL TABLET take one table PO one time da moises TERBINAFINE HCL 16113681082 No Longer Active Checo Conklin MD Active METOCLOPRAMIDE HCL 10 MG ORAL TABLET take one PO tid PRN nausea METOCLOPRAMIDE HCL 46377834596 No Longer Active Checo Conklin MD Active DICLOFENAC SODIUM 75 MG ORAL TABLET DELAYED RELEASE 1 tablet by mouth twice daily PRN Knee pain DICLOFENAC SODIUM 61353579906 No Longer Active Checo Conklin MD Active LAMISIL 250 MG ORAL TABLET 1 po qd TERBINAFI NE HCL 88921119358 No Longer Active Checo Conklin MD Active REGLAN 10 MG ORAL TABLET 1 po TID PRN Nausea 3 METOCLOPRAMIDE HCL 58277775750 No Longer Active Checo Conklin MD Active CELEXA 20 MG ORAL TABLET 1 tablet by mouth daily 09/26 CITALOPRAM HYDROBROMIDE 52948005032 No Longer Active Checo Conklin MD Active AZITHROMYCIN 250 MG ORAL TABLET 2 po qd x 1 day, then 1 po q d x 4 days AZITHROMYCIN 59202425582 No Longer Active Checo Ortiz MD Active HYDROCODONE-ACETAMINOPHEN 5-325 MG ORAL TABLET 1 po q 6hr PRN Pa in HYDROCODONE-ACETAMINOPHEN 96060289046 No Longer Active Lenora Conklin MD Active PHENAZOPYRIDINE HCL 200 MG ORAL TABLET take 1 tab po TID for bladder pain PHENAZOPYRIDINE HCL 44734710835 No Longer Active Joe Conklin MD Active CIPRO 500 MG ORAL TABLET 1 tablet by mouth twice daily CIPROFLOXACIN HCL 27664739484 No Longer Active Dangelo Rangel MD Active HYDROCODONE-ACETAMINOPHEN 5-325 MG ORAL TABLET 1/2 to 1 po q 4 hours prn cough HYDROCODONE-ACETAMINOPHEN 15537450931 No Longer Activ candy Rangel MD Active BACTRIM DS 800-160 MG ORAL TABLET 1 po BID x 7 days 29/04/10 SULFAMETHOXAZOLE-TRIMETHOPRIM 09275567027 No Longer Active Checo Conklin MD Active PREDNISONE 20 MG ORAL TABLET 2 tabs daily for 3 days, 1 tab daily for 3 days, 1/2 tab daily for 2 days PREDNISONE 26426460112 No Longer Active Checo Conklin MD Active TRIAMCINOLONE ACETONIDE 0.1 % EXTERNAL OINTMENT Apply to affected areas TID for up to 2 weeks TRIAMCINOLONE ACETONIDE 95653008377 No Longer Active Checo Conklin MD Active CEFDINIR 300 MG ORAL CAPSULE by mouth twice a day 2013 CEFDINIR 15259251489 No Longer Active Dangelo Rangel MD Acti ve BUPROPION HCL ER (SMOKING DET) 150 MG ORAL TABLET EXTE NDED RELEASE 12 HOUR 1 a day for 1 week then 1 twice a day BUPROPION HCL (SMOKING DETER) 48854392935 No Longer Active Checo Conklin MD Active SIMVASTATIN 20 MG ORAL TABLET 1 po qd SIMVASTAT IN 02364098268 Active Checo Conklin MD Active CHANTIX STARTING MONTH KARTHIK 0.5 MG X 11 & 1 MG X 42 ORA L TABLET 0.5mg daily for 3 days, then 0.5mg BID for 4 days, then 1mg BID VARENICLINE TARTRATE 71971423582 No Longer Active Checo Conklin MD Activ e XANAX 0.5 MG ORAL TABLET 1 po BID PRN anxiety A LPRAZOLAM 44978038006 Active Thomas Marks DO Active CONCERTA 18 MG ORAL TABLET EXTENDED RELEASE 1 po q a.m. METHYLPHENIDATE HCL 40451627212 No Longer Active Checo Conklin MD Active AMBIEN 5 MG ORAL TABLET 1 po qHS PRN Insomnia Z OLPIDEM TARTRATE 12256811833 Active Thomas Marks DO Active TRAZODONE HCL 100 MG ORAL TABLET 0.5 to 1 po qHS PRN Insomnia 20 30/07/08 TRAZODONE HCL 30902732338 No Longer Active Checo Conklin MD Active FIORICET 325-50-40 MG TAB 1 tablet by mouth four times daily as needed OWLMEVPHREMHI-ILFE-PDFHKTLULM 11822812928 No Longer Active Checo Conklin MD Active PHENERGAN CREAM* 25mg applied to wrist q6hr PRN Nausea PHENERGAN CREAM* No Longer Active Checo Conklin MD A ctive FLONASE 50 MCG/ACT NASAL SUSPENSION 1 spray each nostril am and hs FLUTICASONE PROPIONATE 39958584683 No Longer Active Checo Conklin MD Active ANTIPYRINE-BENZOCAINE 5.4-1.4 % OTIC SOLUTION 1-2 drops in affec yohannes ear BENZOCAINE-ANTIPYRINE 53683511212 No Longer Active Checo Conklin MD Active CEFDINIR 300 MG ORAL CAPSULE 1 po bid CEFDINIR 08181912903 No Longer Active Checo Conklin MD Active PREDNISONE 20 MG ORAL TABLET 2 tabs daily for 3 days, 1 tab daily for 3 days, 1/2 tab daily for 2 days PREDNISONE 74859122359 No Longer Active Checo Conklin MD Active AZITHROMYCIN 250 MG ORAL TABLET 2 po qd x 1 day, then 1 po q d x 4 days AZITHROMYCIN 61258276441 No Longer Active Checo Ortiz MD Active PREDNISONE 20 MG ORAL TABLET 2 tabs daily for 3 days, 1 tab daily for 3 days, 1/2 tab daily for 2 days PREDNISONE 33062257303 No Longer Active Checo Conklin MD Active ZITHROMAX Z-KARTHIK 250 MG ORAL TABLET 2 today, then 1 daily for 4 d ays AZITHROMYCIN 34979669621 No Longer Active Paul Hamlin MD Active FOCALIN XR 10 MG ORAL CAPSULE EXTENDED RELEASE 24 HOUR 1 po q a. m. DEXMETHYLPHENIDATE HCL 34578597544 No Longer Active Paul Hamlin MD Active PERCOCET 10-325 MG ORAL TABLET 1 tablet every 6 hours as needed for pain OXYCODONE-ACETAMINOPHEN 37754456204 No Longer Active Paul Hamlin MD Active LORTAB 5-500 MG ORAL TABLET 1/2 to 1 tablet by mouth e very 4 hours as needed for pain HYDROCODONE-ACETAMINOPHEN 49381083740 No Longer Active Checo Conklin MD Active FOCALIN XR 15 MG ORAL CAPSULE EXTENDED RELEASE 24 HOUR 1 po q a. m. DEXMETHYLPHENIDATE HCL 98920151015 No Longer Active Checo Conklin MD Active ZOFRAN ODT 4 MG ORAL TABLET DISINTEGRATING 1 po q6hr PRN Nausea ONDANSETRON 91024878393 No Longer Active Checo Conklin MD Active PERCOCET 5-325 MG ORAL TABLET 1 tablet by mouth every 6 hour s as needed OXYCODONE-ACETAMINOPHEN 35358121881 No Longer Active Checo Conklin MD Active PYRIDIUM 200 MG ORAL TABLET take 1 tab po TID prn urinary pain. PHENAZOPYRIDINE HCL 73867762045 No Longer Active Checo Joshua Active FLUCONAZOLE 150 MG ORAL TABLET take 1 tab po qday once FLUCONAZOLE 32020079802 No Longer Active Dangelo Rangel MD Acti ve CIPRO 500 MG ORAL TABLET 1 tablet by mouth twice daily CIPROFLOXACIN HCL 95180983479 No Longer Active Dangelo Rangel MD Active PYRIDIUM 200 MG ORAL TABLET take 1 tab po TID prn urinary pain. PYRIDIUM 200 MG ORAL TABLET 6562583 PHENAZOPYRIDINE HCL Inactive PERCOCET 5-325 MG ORAL TABLET 1 tablet by mouth every 6 hour s as needed PERCOCET 5-325 MG ORAL TABLET 1888785 OXYCODONE-ACETAMINOPHEN Inactive ZOFRAN ODT 4 MG ORAL TABLET DISINTEGRATING 1 po q6hr PRN Nausea ZOFRAN ODT 4 MG ORAL TABLET DISINTEGRATING 796382 ONDAN SETRON Inactive FOCALIN XR 15 MG [...] for pain PERCOCET 10-325 MG ORAL TABLET 8230936 OXYCODONE-ACETAMI NOPHEN Inactive FOCALIN XR 10 MG ORAL CAPSULE EXTENDED RELEASE 24 HOUR 1 po q a. m. FOCALIN XR 10 MG ORAL CAPSULE EXTENDED RELEASE 24 HOUR DEXMETHYLPHENIDATE HCL Inactive CEFDINIR 300 MG ORAL CAPSULE 1 po bid CEFDINI R 300 MG ORAL CAPSULE 583393 CEFDINIR Inactive ANTIPYRINE-BENZOCAINE 5.4-1.4 % OTIC SOLUTION 1-2 drops in affec yohannes ear ANTIPYRINE-BENZOCAINE 5.4-1.4 % OTIC SOLUTION BENZOCAINE-ANTIPYRINE Inactive FLONASE 50 MCG/ACT NASAL SUSPENSION 1 spray each nostril am and hs FLONASE 50 MCG/ACT NASAL SUSPENSION 1492645 FLUTICASONE PROPIONATE I nactive PHENERGAN CREAM* 25mg applied to wrist q6hr PRN Nausea PHENERGAN CREAM* Inactive FIORICET 325-50-40 MG TAB 1 tablet by mouth four times daily as needed FIORICET 325-50-40 MG TAB ACETAMINOPHEN-C AFF-BUTALBITAL Inactive TRAZODONE HCL 100 MG ORAL TABLET 0.5 to 1 po qHS PRN Insomnia 20 30/07/08 TRAZODONE HCL 100 MG ORAL TABLET 930856 TRAZODONE HCL Inactive CONCERTA 18 MG ORAL [...] cough HYDROCODONE-ACETAMINOPHEN 5-325 MG ORAL TABLET 8 74299 HYDROCODONE-ACETAMINOPHEN Inactive PHENAZOPYRIDINE HCL 200 MG ORAL TABLET take 1 tab po TID for bladder pain PHENAZOPYRIDINE HCL 200 MG ORAL TABLET 1603983 PHENAZOPYRIDINE HCL Inactive HYDROCODONE-ACETAMINOPHEN 5-325 MG ORAL TABLET 1 po q 6hr PRN Pa in HYDROCODONE-ACETAMINOPHEN 5-325 MG ORAL TABLET 203563 HYDROCODONE-ACETAMINOPHEN Inactive CELEXA 20 MG ORAL TABLET 1 tablet by mouth daily 09/26 CELEXA 20 MG ORAL TABLET 374825 CITALOPRAM HYDROBROMIDE Inactive REGLAN 10 MG ORAL TABLET 1 po TID PRN Nausea 3 REGLAN 10 MG ORAL TABLET 588967 METOCLOPRAMIDE HCL Inactive LAMISIL 250 MG ORAL TABLET 1 po qd L AMISIL 250 MG ORAL TABLET 759738 TERBINAFINE HCL Inactive DICLOFENAC SODIUM 75 MG ORAL TABLET DELAYED RELEASE 1 tablet by mouth twice daily PRN Knee pain DICLOFENAC SODIUM 75 MG ORAL TABLET DELAYED RELEASE 649132 DICLOFENAC SODIUM Inactive METOCLOPRAMIDE HCL 10 MG ORAL TABLET take one PO tid PRN nausea METOCLOPRAMIDE HCL 10 MG ORAL TABLET 044503 METOCLOPRAM ZACH HCL Inactive TERBINAFINE HCL 250 MG ORAL TABLET take one table PO one time da moises TERBINAFINE HCL 250 MG ORAL TABLET 317729 TERBINAFINE H CL Inactive BUPROPION HCL ER [...] SICKNESS 25 M G ORAL TABLET CHEWABLE 376461 MECLIZINE HCL Inactive SUMATRIPTAN SUCCINATE 100 MG ORAL TABLET Take one PRN for migran e SUMATRIPTAN SUCCINATE 100 MG ORAL TABLET 842125 SUMATRIPTAN SUCCINATE Inactive COMPRO 25 MG RECTAL SUPPOSITORY insert or apply one garza ppository rectally as directed every 12 hours as needed for nausea COMPRO 25 MG RECTAL SUPPOSITORY 798524 PROCHLORPERAZINE Inactive ONDANSETRON 8 MG ORAL TABLET DISINTEGRATING place one tablet on tongue and allow to dissolve every 6 hours as needed for vomitting ONDANSETRON 8 MG ORAL TABLET DISINTEGRATING 931648 ONDANSETRON Inactive HYDROCODONE-ACETAMINOPHEN 5-325 MG ORAL TABLET 0.5 to 1 tab by mouth every 6 hours as needed HYDROCODONE-ACETAMIN OPHEN 5-325 MG ORAL TABLET 598669 HYDROCODONE-ACETAMINOPHEN Inactive BACTRIM DS 800-160 MG ORAL TABLET 1 tab by mouth twice daily 201 11/23/03 BACTRIM DS 800-160 MG ORAL TABLET 472266 TRIMETHOPRIM-SULFAMETHOXAZOLE Inactive DIFLUCAN 150 MG ORAL TABLET 1 tablet by mouth if neede d, hold until symptoms start DIFLUCAN 150 MG ORAL TABLET 127977 FLUCONAZ OLE Inactive IBUPROFEN 800 MG ORAL TABLET 1 tab every 8 hours with food 03/20 IBUPROFEN 800 MG ORAL TABLET 688832 IBUPROFEN Krupa ctive HYDROCODONE-ACETAMINOPHEN 5-325 MG ORAL TABLET 1 tab b y mouth every 6 hours as needed HYDROCODONE-ACETAMINOPHEN 5-325 MG ORAL TABLET 419752 HYDROCODONE-ACETAMINOPHEN Inactive BACTROBAN 2 % EXTERNAL CREAM Apply to affected area BID for up to 10 days BACTROBAN 2 % EXTERNAL CREAM 256472 MUPIROCIN CA LCIUM Inactive MAGNESIUM CITRATE 1.745 GM/30ML ORAL SOLUTION 150ml po BID P RN Constipation MAGNESIUM CITRATE 1.745 GM/30ML ORAL SOLUTION 10 51455 MAGNESIUM CITRATE Inactive DIFLUCAN 150 MG ORAL TABLET 1 tablet by mouth qod 2015 DIFLUCAN 150 MG ORAL TABLET 567078 FLUCONAZOLE Inactive BACTRIM DS 800-160 MG ORAL TABLET 1 tab by mouth twice daily 201 12/19/26 BACTRIM DS 800-160 MG ORAL TABLET 164815 TRIMETHOPRIM-SULFAMETHOXAZOLE Inactive CLARITIN 10 MG ORAL TABLET 1 tablet by mouth daily as needed for allergies CLARITIN 10 MG ORAL TABLET 564704 LORATADINE I nactive FLUTICASONE PROPIONATE 50 MCG/ACT NASAL SUSPENSION 2 s prays/nostril qd PRN Congestion/Allergies FLUTICASONE PROPION ATE 50 MCG/ACT NASAL SUSPENSION 8419481 FLUTICASONE PROPIONATE Inactive MIRALAX ORAL POWDER 8.5 to 17g po qd PRN Constipation MIRALAX ORAL POWDER 277919 POLYETHYLENE GLYCOL 3350 Inactive IBUPROFEN 800 MG ORAL TABLET 1 tab every 8 hours as needed for p ain IBUPROFEN 800 MG ORAL TABLET 579284 IBUPROFEN Krupa ctive HYDROCHLOROTHIAZIDE 12.5 MG ORAL CAPSULE 1 po qd PRN Edema 01/10 HYDROCHLOROTHIAZIDE 12.5 MG ORAL CAPSULE 994128 HYDROCH LOROTHIAZIDE Inactive CIPRO 500 MG ORAL TABLET 1 tablet by mouth twice daily CIPRO 500 MG ORAL TABLET 505859 CIPROFLOXACIN HCL Inactive FLUCONAZOLE 150 MG ORAL TABLET take 1 tab po qday once FLUCONAZOLE 150 MG ORAL TABLET 381576 FLUCONAZOLE Inactive ZITHROMAX Z-KARTHIK 250 MG ORAL TABLET 2 today, then 1 daily for 4 d ays ZITHROMAX Z-KARTHIK 250 MG ORAL TABLET 167611 AZITHROMYCIN Inactive PREDNISONE 20 MG ORAL TABLET 2 tabs daily for 3 days, 1 tab daily for 3 days, 1/2 tab daily for 2 days PREDNISONE 20 MG ORAL T ABLET 995645 PREDNISONE Inactive AZITHROMYCIN 250 MG ORAL TABLET 2 po qd x 1 day, then 1 po q d x 4 days AZITHROMYCIN 250 MG ORAL TABLET 588092 AZITHROMY SPARKLE Inactive PREDNISONE 20 MG ORAL TABLET 2 tabs daily for 3 days, 1 tab daily for 3 days, 1/2 tab daily for 2 days PREDNISONE 20 MG ORAL TABLET 851245 PREDNISONE Inactive CEFDINIR 300 MG ORAL CAPSULE by mouth twice a day 2013 CEFDINIR 300 MG ORAL CAPSULE 881807 CEFDINIR Inactive TRIAMCINOLONE ACETONIDE 0.1 % EXTERNAL OINTMENT Apply to affected areas TID for up to 2 weeks TRIAMCINOLONE ACETON ZACH 0.1 % EXTERNAL OINTMENT 1443402 TRIAMCINOLONE ACETONIDE Inactive PREDNISONE 20 MG ORAL TABLET 2 tabs daily for 3 days, 1 tab daily for 3 days, 1/2 tab daily for 2 days PREDNISONE 20 MG ORAL T ABLET 085849 PREDNISONE Inactive BACTRIM DS 800-160 MG ORAL TABLET 1 po BID x 7 days 29/04/10 BACTRIM DS 800-160 MG ORAL TABLET 018230 SULFAMETHOXAZOLE-TRIMETHOP RIM Inactive CIPRO 500 MG ORAL TABLET 1 tablet by mouth twice daily CIPRO 500 MG ORAL TABLET 468551 CIPROFLOXACIN HCL Inactive AZITHROMYCIN 250 MG ORAL TABLET 2 po qd x 1 day, then 1 po q d x 4 days AZITHROMYCIN 250 MG ORAL TABLET 288689 AZITHROMY SPARKLE Inactive FLAGYL 500 MG ORAL TABLET 1 tablet by mouth bid 04/13 FLAGYL 500 MG ORAL TABLET 323307 METRONIDAZOLE Inactive AZITHROMYCIN 250 MG ORAL TABLET 2 po qd x 1 day, then 1 po q d x 4 days AZITHROMYCIN 250 MG ORAL TABLET 246081 AZITHROMY SPARKLE Inactive AMOXICILLIN 500 MG ORAL CAPSULE 2 po BID x 10 days 201 01/15/27 AMOXICILLIN 500 MG ORAL CAPSULE 804605 AMOXICILLIN Inactive AMOXICILLIN 500 MG ORAL CAPSULE 2 po BID x 14 days for H. Pylori AMOXICILLIN 500 MG ORAL CAPSULE 880063 AMOXICILLIN Inactive CLARITHROMYCIN 500 MG ORAL TABLET 1 tab po BID x 14 days CLARITHROMYCIN 500 MG ORAL TABLET 875211 CLARITHROMYCIN Inacti ve FLAGYL 500 MG ORAL TABLET 1 tablet by mouth bid 08/29 FLAGYL 500 MG ORAL TABLET 292183 METRONIDAZOLE Inactive PROTONIX 40 MG ORAL TABLET DELAYED RELEASE 1 pill by m outh daily, for acid reflux PROTONIX 40 MG ORAL TABLET DELAYED RELEAS E 561726 PANTOPRAZOLE SODIUM Inactive Immunizations Vaccine Administration Date [...] ... - Chemistry sodium, serum 138 mmol/L 952-125 7981/06/27 carbon dioxide, venous blood 30.3 mmol/L 21.0-32 [...] ... - Chemistry sodium, serum 139 mmol/L 592-494 6860/11/28 carbon dioxide, venous blood 26.0 mmol/L 21.0-32 [...] 5.0-8.5 Encounters Code Encounter Date Provider Facility CPT-73697 Level 3 Est. Patient 16:46:51 CDT Thomas reynolds DO [facility] CPT-01820 [id number] Vst-Est Level III 14:40:49 CDT Paul Hamlin MD [facility] CPT-80912 Level 4 Est. Patient 11:08:43 CDT Checo Conklin MD [facility] CPT-51618 [id number] Vst-Est Level III 09:37:41 CDT Dangelo Rangel MD [facility] CPT-17859 Level 4 Est. Patient 08:57:51 PHOTO LAB SPECIALIST Checo Conklin MD [facility] CPT-83567 Level 3 Est. Patient 11:24:55 PHOTO LAB SPECIALIST Efren almendarez APRN [facility] CPT-27786 Level 3 Est. Patient 13:05:44 CDT Paul Hamlin MD [facility] CPT-07018 Level 3 Est. Patient 11:29:55 CDT Checo Conklin MD [facility] CPT-65152 Level 4 Est. Patient 11:08:12 PHOTO LAB SPECIALIST Checo Conklin MD [facility] CPT-88687 Level 4 Est. Patient 16:06:48 PHOTO LAB SPECIALIST Checo Conklin MD [facility] CPT-27541 Level 3 Est. Patient 09:11:49 CDT Jillina F razell [facility] CPT-73263 Level 2 Est. Patient 19:53:27 CDT Tanner hill MD [facility] CPT-75767 Level 3 Est. Patient 09:15:34 CDT Efren Nicolas almendarez [facility] CPT-57233 Level 3 Est. Patient 11:28:51 PHOTO LAB SPECIALIST Efren Nicolas almendarez [facility] CPT-90229 Level 4 Est. Patient 13:55:46 PHOTO LAB SPECIALIST Checo Conklin MD [facility] CPT-58463 Level 4 Est. Patient 17:10:53 CDT Checo Conklin MD [facility] CPT-18420 Level 3 Est. Patient 15:56:22 CDT Checo Conklin MD [facility] CPT-19588 Level 3 Est. Patient 15:29:07 CDT Checo Conklin MD [facility] CPT-61958 Level 3 Est. Patient 14:38:41 CDT Checo Conklin MD [facility] CPT-44603 Level 3 Est. Patient 15:22:03 PHOTO LAB SPECIALIST Thomas reynolds DO [facility] CPT-11783 Level 3 Est. Patient 13:34:17 PHOTO LAB SPECIALIST Checo Conklin MD [facility] CPT-74949 Level 3 Est. Patient 12:29:32 CDT Dangelo arroyo MD [facility] CPT-85528 Level 3 Est. Patient 16:53:02 CDT Checo Conklin MD [facility] CPT-98963 Level 3 Est. Patient 16:37:13 CDT Checo Conklin MD [facility] CPT-82242 Level 3 Est. Patient 16:16:59 CDT Paul Hamlin MD [facility] CPT-40072 Level 3 Est. Patient 14:20:13 CDT Dangelo arroyo MD [facility] CPT-99061 Level 4 Est. Patient 11:29:33 CDT Checo Conklin MD [facility] CPT-09729 Level 3 Est. Patient 17:08:31 CDT Checo Conklin MD [facility] CPT-67197 Level 3 Est. Patient 16:50:42 PHOTO LAB SPECIALIST Checo Conklin MD [facility] CPT-17309 Level 4 Est. Patient 09:26:08 PHOTO LAB SPECIALIST Checo Conklin MD [facility] CPT-67767 Level 3 Est. Patient 11:37:10 CDT Checo Conklin MD [facility] CPT-40796 Level 4 Est. Patient 14:07:38 CDT Checo Coknlin MD [facility] CPT-62033 Level 3 Est. Patient 09:54:41 CDT Checo Conklin MD [facility] CPT-98109 Level 3 Est. Patient 11:10:54 CDT Paul Hamlin MD [facility] CPT-43658 Level 3 Est. Patient 14:16:56 PHOTO LAB SPECIALIST Checo Conklin MD [facility] CPT-09081 Level 3 Est. Patient 11:04:11 PHOTO LAB SPECIALIST Checo Conklin MD [facility] CPT-06778 Level 3 Est. Patient 17:09:26 CDT Dangelo arroyo MD [facility] CPT-92881 Level 3 Est. Patient 16:54:37 CDT Checo Conklin MD [facility] Procedures Code Procedure Name Date Entry Date Standard Desc ription CPT-J2550 Phenergan 25 mg (Promethazine) 16:48:23 CDT CPT-J1885 Toradol 60 mg 16:48:23 CDT CPT-86856 Wrist, right, comp 3V - XRAY USE ONLY 09:24:31 CDT CPT-59116 Abd compl w upright - XRAY USE ONLY 1 1:36:54 PHOTO LAB SPECIALIST CPT-40071 UA w micro - LAB USE ONLY 17:06:46 CDT 2015 CPT-95684 [facility] Qual - LAB USE ONLY 17:06:46 CDT 05/06 CPT-71664 CMP - LAB USE ONLY 17:06:46 CDT CPT-04632 CBC with Diff - LAB USE ONLY 17:06:45 CDT 2 CPT-28323 Venipuncture Draw Fee 17:06:45 CDT CPT-LR Lesion Removal 19:53:27 CDT CPT-OV Office Visit 11:31:28 CDT CPT-40283 Tubersol 09:39:29 CDT CPT-J2550 Phenergan 25 mg (Promethazine) 13:59:02 PHOTO LAB SPECIALIST CPT-J1885 Toradol 60 mg (Ketorolac) 13:59:02 PHOTO LAB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
--- OUTSIDE RECORDS SUMMARY | 2019-09-29 01:48 | XMS REPORT | Clinical Summary ---
Author Author Admin, Bethany [facility] Address Unknown Phone Unavailable Allergies, Adverse [...] RELEASE 1 daily with furosemide POTASSIUM CHLORIDE 29862671075 Active Paul Hamlin MD Active FUROSEMIDE 20 MG ORAL TABLET 1 daily for swelling FUROSEMIDE 86108214022 Active Paul Hamlin MD Active HYDROCHLOROTHIAZIDE 12.5 MG ORAL CAPSULE 1 po qd PRN Edema 01/10 HYDROCHLOROTHIAZIDE 86717816188 No Longer Active Paul Hamlin MD Active IBUPROFEN 800 MG ORAL TABLET 1 tab every 8 hours as needed for p ain IBUPROFEN 41786395454 No Longer Active Paul Hamlin MD Active PAROXETINE HCL 40 MG ORAL TABLET 1 po qd PAR OXETINE HCL 01811776658 Active Checo Conklin MD Active MIRALAX ORAL POWDER 8.5 to 17g po qd PRN Constipation POLYETHYLENE GLYCOL 3350 22123606458 No Longer Active Checo Conklin MD Active PROTONIX 40 MG ORAL TABLET DELAYED RELEASE 1 pill by m out daily, for acid reflux PANTOPRAZOLE SODIUM 42089045964 No Longer Activ e Corry Méndez LPN Active FLAGYL 500 MG ORAL TABLET 1 tablet by mouth bid 08/29 METRONIDAZOLE 79297470144 No Longer Active Corry Méndez LPN Active CLARITHROMYCIN 500 MG ORAL TABLET 1 tab po BID x 14 days CLARITHROMYCIN 72939165445 No Longer Active Corry Méndez LPN Active AMOXICILLIN 500 MG ORAL CAPSULE 2 po BID x 14 days for H. Pylori AMOXICILLIN 00489491904 No Longer Active Corry Méndez LPN Active FLUTICASONE PROPIONATE 50 MCG/ACT NASAL SUSPENSION 2 s prays/nostril qd PRN Congestion/Allergies FLUTICASONE PROPIONATE 8475836801 9 No Longer Active Checo Conklin MD Active AMOXICILLIN 500 MG ORAL CAPSULE 2 po BID x 10 days 201 01/15/27 AMOXICILLIN 19259962009 No Longer Active Checo Conklin MD Activ e CLARITIN 10 MG ORAL TABLET 1 tablet by mouth daily as needed for allergies LORATADINE 84112282975 No Longer Active Checo Ortiz MD Active BACTRIM DS 800-160 MG ORAL TABLET 1 tab by mouth twice daily 201 12/19/26 TRIMETHOPRIM-SULFAMETHOXAZOLE 54413756154 No Longer Active Ragini Carrillo MD Active DIFLUCAN 150 MG ORAL TABLET 1 tablet by mouth qod 2015 FLUCONAZOLE 83492042599 No Longer Active Efren Medel MEAT GRADER Act mike AZITHROMYCIN 250 MG ORAL TABLET 2 po qd x 1 day, then 1 po q d x 4 days AZITHROMYCIN 13091872322 No Longer Active Efren flores MEAT GRADER Active FLAGYL 500 MG ORAL TABLET 1 tablet by mouth bid 04/13 METRONIDAZOLE 10846468589 No Longer Active Checo Conklin MD Acti ve FOCALIN XR 10 MG ORAL CAPSULE EXTENDED RELEASE 24 HOUR 1 po q a.m. DEXMETHYLPHENIDATE HCL 84052895701 Active Checo Conklin MD Active MAGNESIUM CITRATE 1.745 GM/30ML ORAL SOLUTION 150ml po BID P RN Constipation MAGNESIUM CITRATE 49638123757 No Longer Active Checo Conklin MD Active BACTROBAN 2 % EXTERNAL CREAM Apply to affected area BID for up to 10 days MUPIROCIN CALCIUM 36961782783 No Longer Active Checo Conklin MD Active HYDROCODONE-ACETAMINOPHEN 5-325 MG ORAL TABLET 1 tab b y mouth every 6 hours as needed HYDROCODONE-ACETAMINOPHEN 26386503610 No Longer Active Checo Conklin MD Active IBUPROFEN 800 MG ORAL TABLET 1 tab every 8 hours with food 03/20 IBUPROFEN 34470934392 No Longer Active Checo Conklin MD Active DIFLUCAN 150 MG ORAL TABLET 1 tablet by mouth if neede d, hold until symptoms start FLUCONAZOLE 07048985287 No Longer Active Checo Conklin MD Active BACTRIM DS 800-160 MG ORAL TABLET 1 tab by mouth twice daily 201 11/23/03 TRIMETHOPRIM-SULFAMETHOXAZOLE 77111940059 No Longer Active K bernice Méndez LPN Active HYDROCODONE-ACETAMINOPHEN 5-325 MG ORAL TABLET 0.5 to 1 tab by mouth every 6 hours as needed HYDROCODONE-ACETAMINOPHEN 05395866752 No Longer Active Checo Conklin MD Active ONDANSETRON 8 MG ORAL TABLET DISINTEGRATING place one tablet on tongue and allow to dissolve every 6 hours as needed for vomitting ONDANSETRON 70261357700 No Longer Active Checo Conklin MD Activ e COMPRO 25 MG RECTAL SUPPOSITORY insert or apply one garza ppository rectally as directed every 12 hours as needed for nausea PROCHLORPERAZINE 65566231349 No Longer Active Checo Conklin MD A ctive SUMATRIPTAN SUCCINATE 100 MG ORAL TABLET Take one PRN for migran e SUMATRIPTAN SUCCINATE 34818343636 No Longer Active Checo Conklin MD Active TRAVEL SICKNESS 25 MG ORAL TABLET CHEWABLE chew and sw allow one tablet every 6 hours as needed MECLIZINE HCL 58632618717 No Longer A ctive Checo Conklin MD Active BUPROPION HCL ER (SR) 100 MG ORAL TABLET EXTENDED RELE ASE 12 HOUR take one tablet by mouth one time daily for one week then take 1 two times daily BUPROPION HCL 07255778756 No Longer Active Checo gallagher MD Active TERBINAFINE HCL 250 MG ORAL TABLET take one table PO one time da moises TERBINAFINE HCL 74159584865 No Longer Active Checo Conklin MD Active METOCLOPRAMIDE HCL 10 MG ORAL TABLET take one PO tid PRN nausea METOCLOPRAMIDE HCL 88525295594 No Longer Active Checo Conklin MD Active DICLOFENAC SODIUM 75 MG ORAL TABLET DELAYED RELEASE 1 tablet by mouth twice daily PRN Knee pain DICLOFENAC SODIUM 08687636290 No Longer Active Checo Conklin MD Active LAMISIL 250 MG ORAL TABLET 1 po qd TERBINAFI NE HCL 85278591439 No Longer Active Checo Conklin MD Active REGLAN 10 MG ORAL TABLET 1 po TID PRN Nausea 3 METOCLOPRAMIDE HCL 30732650211 No Longer Active Checo Conklin MD Active CELEXA 20 MG ORAL TABLET 1 tablet by mouth daily 09/26 CITALOPRAM HYDROBROMIDE 14661603923 No Longer Active Checo Conklin MD Active AZITHROMYCIN 250 MG ORAL TABLET 2 po qd x 1 day, then 1 po q d x 4 days AZITHROMYCIN 07426912062 No Longer Active Checo Ortiz MD Active HYDROCODONE-ACETAMINOPHEN 5-325 MG ORAL TABLET 1 po q 6hr PRN Pa in HYDROCODONE-ACETAMINOPHEN 39350736824 No Longer Active Lenora Conklin MD Active PHENAZOPYRIDINE HCL 200 MG ORAL TABLET take 1 tab po TID for bladder pain PHENAZOPYRIDINE HCL 15868785449 No Longer Active Joe Conklin MD Active CIPRO 500 MG ORAL TABLET 1 tablet by mouth twice daily CIPROFLOXACIN HCL 19774507622 No Longer Active Dangelo Rangel MD Active HYDROCODONE-ACETAMINOPHEN 5-325 MG ORAL TABLET 1/2 to 1 po q 4 hours prn cough HYDROCODONE-ACETAMINOPHEN 66818345548 No Longer Activ candy Rangel MD Active BACTRIM DS 800-160 MG ORAL TABLET 1 po BID x 7 days 29/04/10 SULFAMETHOXAZOLE-TRIMETHOPRIM 50065859367 No Longer Active Checo Conklin MD Active PREDNISONE 20 MG ORAL TABLET 2 tabs daily for 3 days, 1 tab daily for 3 days, 1/2 tab daily for 2 days PREDNISONE 59155195683 No Longer Active Checo Conklin MD Active TRIAMCINOLONE ACETONIDE 0.1 % EXTERNAL OINTMENT Apply to affected areas TID for up to 2 weeks TRIAMCINOLONE ACETONIDE 27233169849 No Longer Active Checo Conklin MD Active CEFDINIR 300 MG ORAL CAPSULE by mouth twice a day 2013 CEFDINIR 40541602876 No Longer Active Dangelo Rangel MD Acti ve BUPROPION HCL ER (SMOKING DET) 150 MG ORAL TABLET EXTE NDED RELEASE 12 HOUR 1 a day for 1 week then 1 twice a day BUPROPION HCL (SMOKING DETER) 10983019732 No Longer Active Checo Conklin MD Active SIMVASTATIN 20 MG ORAL TABLET 1 po qd SIMVASTAT IN 09906250196 Active Checo Conklin MD Active CHANTIX STARTING MONTH KARTHIK 0.5 MG X 11 & 1 MG X 42 ORA L TABLET 0.5mg daily for 3 days, then 0.5mg BID for 4 days, then 1mg BID VARENICLINE TARTRATE 34650464929 No Longer Active Checo Conklin MD Activ e XANAX 0.5 MG ORAL TABLET 1 po BID PRN anxiety A LPRAZOLAM 80284394328 Active Thomas Marks DO Active CONCERTA 18 MG ORAL TABLET EXTENDED RELEASE 1 po q a.m. METHYLPHENIDATE HCL 49465284905 No Longer Active Checo Conklin MD Active AMBIEN 5 MG ORAL TABLET 1 po qHS PRN Insomnia Z OLPIDEM TARTRATE 38593037389 Active Thomas Marks DO Active TRAZODONE HCL 100 MG ORAL TABLET 0.5 to 1 po qHS PRN Insomnia 20 30/07/08 TRAZODONE HCL 19328131971 No Longer Active Checo Conklin MD Active FIORICET 325-50-40 MG TAB 1 tablet by mouth four times daily as needed [id number] 14175661586 No Longer Active Checo Conklin MD Active PHENERGAN CREAM* 25mg applied to wrist q6hr PRN Nausea PHENERGAN CREAM* No Longer Active Checo Conklin MD A ctive FLONASE 50 MCG/ACT NASAL SUSPENSION 1 spray each nostril am and hs FLUTICASONE PROPIONATE 23084360629 No Longer Active Checo Conklin MD Active ANTIPYRINE-BENZOCAINE 5.4-1.4 % OTIC SOLUTION 1-2 drops in affec yohannes ear BENZOCAINE-ANTIPYRINE 65366183837 No Longer Active Checo Conklin MD Active CEFDINIR 300 MG ORAL CAPSULE 1 po bid CEFDINIR 35351933128 No Longer Active Checo Conklin MD Active PREDNISONE 20 MG ORAL TABLET 2 tabs daily for 3 days, 1 tab daily for 3 days, 1/2 tab daily for 2 days PREDNISONE 40934395454 No Longer Active Checo Conklin MD Active AZITHROMYCIN 250 MG ORAL TABLET 2 po qd x 1 day, then 1 po q d x 4 days AZITHROMYCIN 36008404416 No Longer Active Checo Ortiz MD Active PREDNISONE 20 MG ORAL TABLET 2 tabs daily for 3 days, 1 tab daily for 3 days, 1/2 tab daily for 2 days PREDNISONE 23867283780 No Longer Active Checo Conklin MD Active ZITHROMAX Z-KARTHIK 250 MG ORAL TABLET 2 today, then 1 daily for 4 d ays AZITHROMYCIN 51631174424 No Longer Active Paul Hamlin MD Active FOCALIN XR 10 MG ORAL CAPSULE EXTENDED RELEASE 24 HOUR 1 po q a. m. DEXMETHYLPHENIDATE HCL 96818108093 No Longer Active Paul Hamlin MD Active PERCOCET 10-325 MG ORAL TABLET 1 tablet every 6 hours as needed for pain OXYCODONE-ACETAMINOPHEN 03420739767 No Longer Active Paul Hamlin MD Active LORTAB 5-500 MG ORAL TABLET 1/2 to 1 tablet by mouth e very 4 hours as needed for pain HYDROCODONE-ACETAMINOPHEN 41312437769 No Longer Active Checo Conklin MD Active FOCALIN XR 15 MG ORAL CAPSULE EXTENDED RELEASE 24 HOUR 1 po q a. m. DEXMETHYLPHENIDATE HCL 36665923555 No Longer Active Checo Conklin MD Active ZOFRAN ODT 4 MG ORAL TABLET DISINTEGRATING 1 po q6hr PRN Nausea ONDANSETRON 97599529226 No Longer Active Checo Conklin MD Active PERCOCET 5-325 MG ORAL TABLET 1 tablet by mouth every 6 hour s as needed OXYCODONE-ACETAMINOPHEN 77223479799 No Longer Active Checo Conklin MD Active PYRIDIUM 200 MG ORAL TABLET take 1 tab po TID prn urinary pain. PHENAZOPYRIDINE HCL 48100930488 No Longer Active Checo Joshua Active FLUCONAZOLE 150 MG ORAL TABLET take 1 tab po qday once FLUCONAZOLE 96702029058 No Longer Active Dangelo Rangel MD Acti ve CIPRO 500 MG ORAL TABLET 1 tablet by mouth twice daily CIPROFLOXACIN HCL 29235922629 No Longer Active Dangelo Rangel MD Active PYRIDIUM 200 MG ORAL TABLET take 1 tab po TID prn urinary pain. PYRIDIUM 200 MG ORAL TABLET 7872178 PHENAZOPYRIDINE HCL Inactive PERCOCET 5-325 MG ORAL TABLET 1 tablet by mouth every 6 hour s as needed PERCOCET 5-325 MG ORAL TABLET 6308270 OXYCODONE-ACETAMINOPHEN Inactive ZOFRAN ODT 4 MG ORAL TABLET DISINTEGRATING 1 po q6hr PRN Nausea ZOFRAN ODT 4 MG ORAL TABLET DISINTEGRATING 718122 ONDAN SETRON Inactive FOCALIN XR 15 MG [...] for pain PERCOCET 10-325 MG ORAL TABLET 1936623 OXYCODONE-ACETAMI NOPHEN Inactive FOCALIN XR 10 MG ORAL CAPSULE EXTENDED RELEASE 24 HOUR 1 po q a. m. FOCALIN XR 10 MG ORAL CAPSULE EXTENDED RELEASE 24 HOUR DEXMETHYLPHENIDATE HCL Inactive CEFDINIR 300 MG ORAL CAPSULE 1 po bid CEFDINI R 300 MG ORAL CAPSULE 904076 CEFDINIR Inactive ANTIPYRINE-BENZOCAINE 5.4-1.4 % OTIC SOLUTION 1-2 drops in affec yohannes ear ANTIPYRINE-BENZOCAINE 5.4-1.4 % OTIC SOLUTION BENZOCAINE-ANTIPYRINE Inactive FLONASE 50 MCG/ACT NASAL SUSPENSION 1 spray each nostril am and hs FLONASE 50 MCG/ACT NASAL SUSPENSION 2054727 FLUTICASONE PROPIONATE I nactive PHENERGAN CREAM* 25mg applied to wrist q6hr PRN Nausea PHENERGAN CREAM* Inactive FIORICET 325-50-40 MG TAB 1 tablet by mouth four times daily as needed FIORICET 325-50-40 MG TAB ACETAMINOPHEN-C AFF-BUTALBITAL Inactive TRAZODONE HCL 100 MG ORAL TABLET 0.5 to 1 po qHS PRN Insomnia 20 30/07/08 TRAZODONE HCL 100 MG ORAL TABLET 496833 TRAZODONE HCL Inactive CONCERTA 18 MG ORAL [...] cough HYDROCODONE-ACETAMINOPHEN 5-325 MG ORAL TABLET 8 35260 HYDROCODONE-ACETAMINOPHEN Inactive PHENAZOPYRIDINE HCL 200 MG ORAL TABLET take 1 tab po TID for bladder pain PHENAZOPYRIDINE HCL 200 MG ORAL TABLET 3146637 PHENAZOPYRIDINE HCL Inactive HYDROCODONE-ACETAMINOPHEN 5-325 MG ORAL TABLET 1 po q 6hr PRN Pa in HYDROCODONE-ACETAMINOPHEN 5-325 MG ORAL TABLET 938603 HYDROCODONE-ACETAMINOPHEN Inactive CELEXA 20 MG ORAL TABLET 1 tablet by mouth daily 09/26 CELEXA 20 MG ORAL TABLET 515537 CITALOPRAM HYDROBROMIDE Inactive REGLAN 10 MG ORAL TABLET 1 po TID PRN Nausea 3 REGLAN 10 MG ORAL TABLET 003924 METOCLOPRAMIDE HCL Inactive LAMISIL 250 MG ORAL TABLET 1 po qd L AMISIL 250 MG ORAL TABLET 643544 TERBINAFINE HCL Inactive DICLOFENAC SODIUM 75 MG ORAL TABLET DELAYED RELEASE 1 tablet by mouth twice daily PRN Knee pain DICLOFENAC SODIUM 75 MG ORAL TABLET DELAYED RELEASE 553438 DICLOFENAC SODIUM Inactive METOCLOPRAMIDE HCL 10 MG ORAL TABLET take one PO tid PRN nausea METOCLOPRAMIDE HCL 10 MG ORAL TABLET 046311 METOCLOPRAM ZACH HCL Inactive TERBINAFINE HCL 250 MG ORAL TABLET take one table PO one time da moises TERBINAFINE HCL 250 MG ORAL TABLET 635210 TERBINAFINE H CL Inactive BUPROPION HCL ER [...] SICKNESS 25 M G ORAL TABLET CHEWABLE 230072 MECLIZINE HCL Inactive SUMATRIPTAN SUCCINATE 100 MG ORAL TABLET Take one PRN for migran e SUMATRIPTAN SUCCINATE 100 MG ORAL TABLET 087514 SUMATRIPTAN SUCCINATE Inactive COMPRO 25 MG RECTAL SUPPOSITORY insert or apply one garza ppository rectally as directed every 12 hours as needed for nausea COMPRO 25 MG RECTAL SUPPOSITORY 087909 PROCHLORPERAZINE Inactive ONDANSETRON 8 MG ORAL TABLET DISINTEGRATING place one tablet on tongue and allow to dissolve every 6 hours as needed for vomitting ONDANSETRON 8 MG ORAL TABLET DISINTEGRATING 242021 ONDANSETRON Inactive HYDROCODONE-ACETAMINOPHEN 5-325 MG ORAL TABLET 0.5 to 1 tab by mouth every 6 hours as needed HYDROCODONE-ACETAMIN OPHEN 5-325 MG ORAL TABLET 176392 HYDROCODONE-ACETAMINOPHEN Inactive BACTRIM DS 800-160 MG ORAL TABLET 1 tab by mouth twice daily 201 11/23/03 BACTRIM DS 800-160 MG ORAL TABLET 800568 TRIMETHOPRIM-SULFAMETHOXAZOLE Inactive DIFLUCAN 150 MG ORAL TABLET 1 tablet by mouth if neede d, hold until symptoms start DIFLUCAN 150 MG ORAL TABLET 987530 FLUCONAZ OLE Inactive IBUPROFEN 800 MG ORAL TABLET 1 tab every 8 hours with food 03/20 IBUPROFEN 800 MG ORAL TABLET 312744 IBUPROFEN Krupa ctive HYDROCODONE-ACETAMINOPHEN 5-325 MG ORAL TABLET 1 tab b y mouth every 6 hours as needed HYDROCODONE-ACETAMINOPHEN 5-325 MG ORAL TABLET 737965 HYDROCODONE-ACETAMINOPHEN Inactive BACTROBAN 2 % EXTERNAL CREAM Apply to affected area BID for up to 10 days BACTROBAN 2 % EXTERNAL CREAM 721744 MUPIROCIN CA LCIUM Inactive MAGNESIUM CITRATE 1.745 GM/30ML ORAL SOLUTION 150ml po BID P RN Constipation MAGNESIUM CITRATE 1.745 GM/30ML ORAL SOLUTION 10 47359 MAGNESIUM CITRATE Inactive DIFLUCAN 150 MG ORAL TABLET 1 tablet by mouth qod 2015 DIFLUCAN 150 MG ORAL TABLET 002066 FLUCONAZOLE Inactive BACTRIM DS 800-160 MG ORAL TABLET 1 tab by mouth twice daily 201 12/19/26 BACTRIM DS 800-160 MG ORAL TABLET 690016 TRIMETHOPRIM-SULFAMETHOXAZOLE Inactive CLARITIN 10 MG ORAL TABLET 1 tablet by mouth daily as needed for allergies CLARITIN 10 MG ORAL TABLET 479661 LORATADINE I nactive FLUTICASONE PROPIONATE 50 MCG/ACT NASAL SUSPENSION 2 s prays/nostril qd PRN Congestion/Allergies FLUTICASONE PROPION ATE 50 MCG/ACT NASAL SUSPENSION 0265351 FLUTICASONE PROPIONATE Inactive MIRALAX ORAL POWDER 8.5 to 17g po qd PRN Constipation MIRALAX ORAL POWDER 901248 POLYETHYLENE GLYCOL 3350 Inactive IBUPROFEN 800 MG ORAL TABLET 1 tab every 8 hours as needed for p ain IBUPROFEN 800 MG ORAL TABLET 882236 IBUPROFEN Krupa ctive HYDROCHLOROTHIAZIDE 12.5 MG ORAL CAPSULE 1 po qd PRN Edema 01/10 HYDROCHLOROTHIAZIDE 12.5 MG ORAL CAPSULE 209990 HYDROCH LOROTHIAZIDE Inactive CIPRO 500 MG ORAL TABLET 1 tablet by mouth twice daily CIPRO 500 MG ORAL TABLET 644527 CIPROFLOXACIN HCL Inactive FLUCONAZOLE 150 MG ORAL TABLET take 1 tab po qday once FLUCONAZOLE 150 MG ORAL TABLET 430095 FLUCONAZOLE Inactive ZITHROMAX Z-KARTHIK 250 MG ORAL TABLET 2 today, then 1 daily for 4 d ays ZITHROMAX Z-KARTHIK 250 MG ORAL TABLET 798675 AZITHROMYCIN Inactive PREDNISONE 20 MG ORAL TABLET 2 tabs daily for 3 days, 1 tab daily for 3 days, 1/2 tab daily for 2 days PREDNISONE 20 MG ORAL T ABLET 627377 PREDNISONE Inactive AZITHROMYCIN 250 MG ORAL TABLET 2 po qd x 1 day, then 1 po q d x 4 days AZITHROMYCIN 250 MG ORAL TABLET 193184 AZITHROMY SPARKLE Inactive PREDNISONE 20 MG ORAL TABLET 2 tabs daily for 3 days, 1 tab daily for 3 days, 1/2 tab daily for 2 days PREDNISONE 20 MG ORAL TABLET 358365 PREDNISONE Inactive CEFDINIR 300 MG ORAL CAPSULE by mouth twice a day 2013 CEFDINIR 300 MG ORAL CAPSULE 931572 CEFDINIR Inactive TRIAMCINOLONE ACETONIDE 0.1 % EXTERNAL OINTMENT Apply to affected areas TID for up to 2 weeks TRIAMCINOLONE ACETON ZACH 0.1 % EXTERNAL OINTMENT 7407028 TRIAMCINOLONE ACETONIDE Inactive PREDNISONE 20 MG ORAL TABLET 2 tabs daily for 3 days, 1 tab daily for 3 days, 1/2 tab daily for 2 days PREDNISONE 20 MG ORAL T ABLET 204762 PREDNISONE Inactive BACTRIM DS 800-160 MG ORAL TABLET 1 po BID x 7 days 29/04/10 BACTRIM DS 800-160 MG ORAL TABLET 079783 SULFAMETHOXAZOLE-TRIMETHOP RIM Inactive CIPRO 500 MG ORAL TABLET 1 tablet by mouth twice daily CIPRO 500 MG ORAL TABLET 153633 CIPROFLOXACIN HCL Inactive AZITHROMYCIN 250 MG ORAL TABLET 2 po qd x 1 day, then 1 po q d x 4 days AZITHROMYCIN 250 MG ORAL TABLET 302793 AZITHROMY SPARKLE Inactive FLAGYL 500 MG ORAL TABLET 1 tablet by mouth bid 04/13 FLAGYL 500 MG ORAL TABLET 445643 METRONIDAZOLE Inactive AZITHROMYCIN 250 MG ORAL TABLET 2 po qd x 1 day, then 1 po q d x 4 days AZITHROMYCIN 250 MG ORAL TABLET 487441 AZITHROMY SPARKLE Inactive AMOXICILLIN 500 MG ORAL CAPSULE 2 po BID x 10 days 201 01/15/27 AMOXICILLIN 500 MG ORAL CAPSULE 178907 AMOXICILLIN Inactive AMOXICILLIN 500 MG ORAL CAPSULE 2 po BID x 14 days for H. Pylori AMOXICILLIN 500 MG ORAL CAPSULE 290915 AMOXICILLIN Inactive CLARITHROMYCIN 500 MG ORAL TABLET 1 tab po BID x 14 days CLARITHROMYCIN 500 MG ORAL TABLET 684888 CLARITHROMYCIN Inacti ve FLAGYL 500 MG ORAL TABLET 1 tablet by mouth bid 08/29 FLAGYL 500 MG ORAL TABLET 668079 METRONIDAZOLE Inactive PROTONIX 40 MG ORAL TABLET DELAYED RELEASE 1 pill by m outh daily, for acid reflux PROTONIX 40 MG ORAL TABLET DELAYED RELEAS E 683373 PANTOPRAZOLE SODIUM Inactive Immunizations Vaccine Administration Date [...] ... - Chemistry sodium, serum 138 mmol/L 612-033 2053/06/27 carbon dioxide, venous blood 30.3 mmol/L 21.0-32 [...] ... - Chemistry sodium, serum 139 mmol/L 922-935 2898/11/28 carbon dioxide, venous blood 26.0 mmol/L 21.0-32 [...] 5.0-8.5 Encounters Code Encounter Date Provider Facility CPT-65555 Level 3 Est. Patient 16:46:51 CDT Thomas reynolds DO [facility] CPT-32563 [id number] Vst-Est Level III 14:40:49 CDT Paul Hamlin MD [facility] CPT-27352 Level 4 Est. Patient 11:08:43 CDT Checo Conklin MD [facility] CPT-99739 [id number] Vst-Est Level III 09:37:41 CDT Daneglo Rangel MD [facility] CPT-69511 Level 4 Est. Patient 08:57:51 HEALTH CARE COACH Checo Conklin MD [facility] CPT-35476 Level 3 Est. Patient 11:24:55 HEALTH CARE COACH Efren almendarez APRN [facility] CPT-89760 Level 3 Est. Patient 13:05:44 CDT Paul Hamlin MD [facility] CPT-90387 Level 3 Est. Patient 11:29:55 CDT Checo Conklin MD [facility] CPT-70349 Level 4 Est. Patient 11:08:12 HEALTH CARE COACH Checo Conklin MD [facility] CPT-15345 Level 4 Est. Patient 16:06:48 HEALTH CARE COACH Checo Conklin MD [facility] CPT-00160 Level 3 Est. Patient 09:11:49 CDT Jillina F razell [facility] [place] CPT-31938 Level 2 Est. Patient 19:53:27 CDT Tanner hill MD [facility] CPT-60347 Level 3 Est. Patient 09:15:34 CDT Efren Nicolas almendarez [facility] [place] CPT-44512 Level 3 Est. Patient 11:28:51 HEALTH CARE COACH Efren Nicolas almendarez [facility] [place] CPT-94303 Level 4 Est. Patient 13:55:46 HEALTH CARE COACH Checo Conklin MD [facility] CPT-81414 Level 4 Est. Patient 17:10:53 CDT Checo Conklin MD [facility] CPT-48440 Level 3 Est. Patient 15:56:22 CDT Checo Conklin MD [facility] CPT-08078 Level 3 Est. Patient 15:29:07 CDT Checo Conklin MD [facility] CPT-04564 Level 3 Est. Patient 14:38:41 CDT Checo Conklin MD [facility] CPT-45721 Level 3 Est. Patient 15:22:03 HEALTH CARE COACH Thomas reynolds DO [facility] CPT-07896 Level 3 Est. Patient 13:34:17 HEALTH CARE COACH Checo Conklin MD [facility] CPT-05803 Level 3 Est. Patient 12:29:32 CDT Dangelo arroyo MD [facility] CPT-25803 Level 3 Est. Patient 16:53:02 CDT Checo Conklin MD [facility] CPT-70663 Level 3 Est. Patient 16:37:13 CDT Checo Conklin MD [facility] CPT-50830 Level 3 Est. Patient 16:16:59 CDT Paul Hamlin MD [facility] CPT-26424 Level 3 Est. Patient 14:20:13 CDT Dangelo arroyo MD [facility] CPT-39564 Level 4 Est. Patient 11:29:33 CDT Checo Conklin MD [facility] CPT-35443 Level 3 Est. Patient 17:08:31 CDT Checo Conklin MD [facility] CPT-13373 Level 3 Est. Patient 16:50:42 HEALTH CARE COACH Checo Conklin MD [facility] CPT-66284 Level 4 Est. Patient 09:26:08 HEALTH CARE COACH Checo Conklin MD [facility] CPT-37601 Level 3 Est. Patient 11:37:10 CDT Checo Conklin MD [facility] CPT-96608 Level 4 Est. Patient 14:07:38 CDT Checo Conklin MD [facility] CPT-34621 Level 3 Est. Patient 09:54:41 CDT Checo Conklin MD [facility] CPT-48114 Level 3 Est. Patient 11:10:54 CDT Paul Hamlin MD [facility] CPT-26254 Level 3 Est. Patient 14:16:56 HEALTH CARE COACH Checo Conklin MD [facility] CPT-92992 Level 3 Est. Patient 11:04:11 HEALTH CARE COACH Checo Conklin MD [facility] CPT-94608 Level 3 Est. Patient 17:09:26 CDT Dangelo arroyo MD [facility] CPT-95152 Level 3 Est. Patient 16:54:37 CDT Checo Conklin MD [facility] Procedures Code Procedure Name Date Entry Date Standard Desc ription CPT-39606 Abx/Therapy Injection 18:17:48 CDT CPT-J2550 Phenergan 25 mg (Promethazine) 16:48:23 CDT CPT-J1885 Toradol 60 mg 16:48:23 CDT CPT-75338 Wrist, right, comp 3V - XRAY USE ONLY 09:24:31 CDT CPT-52889 Abd compl w upright - XRAY USE ONLY 1 1:36:54 HEALTH CARE COACH CPT-23234 UA w micro - LAB USE ONLY 17:06:46 CDT 2015 CPT-28795 BHCG Qual - LAB USE ONLY 17:06:46 CDT 05/06 CPT-74389 CMP - LAB USE ONLY 17:06:46 CDT CPT-41865 CBC with Diff - LAB USE ONLY 17:06:45 CDT 2 CPT-12188 Venipuncture Draw Fee 17:06:45 CDT CPT-LR Lesion Removal 19:53:27 CDT CPT-OV Office Visit 11:31:28 CDT CPT-16646 Tubersol 09:39:29 CDT CPT-J2550 Phenergan 25 mg (Promethazine) 13:59:02 HEALTH CARE COACH CPT-J1885 Toradol 60 mg (Ketorolac) 13:59:02 HEALTH CARE COACH 2012
--- OUTSIDE RECORDS SUMMARY | 2019-09-29 01:48 | XMS REPORT | Clinical Summary ---
Author Author Admin, Bethany Ayala [employer] [facility] Address Unknown Phone Unavailable Allergies, [...] PAIN RIGHT LOWER QUADRANT ICD-789.03 Inactive Checo Conklni MD HEADACHE, TENSION ICD-307.81 Inactive Checo Conklin [...] RELEASE 1 daily with furosemide POTASSIUM CHLORIDE [id number] Active Paul Hamlin MD Active FUROSEMIDE 20 MG ORAL TABLET 1 daily for swelling FUROSEMIDE 01682316621 Active Paul Hamlin MD Active HYDROCHLOROTHIAZIDE 12.5 MG ORAL CAPSULE 1 po qd PRN Edema 01/10 HYDROCHLOROTHIAZIDE 64410356358 No Longer Active Paul Hamlin MD Active IBUPROFEN 800 MG ORAL TABLET 1 tab every 8 hours as needed for p ain IBUPROFEN 23304236902 No Longer Active Paul Hamlin MD Active PAROXETINE HCL 40 MG ORAL TABLET 1 po qd PAR OXETINE HCL 27916277516 Active Checo Conklin MD Active MIRALAX ORAL POWDER 8.5 to 17g po qd PRN Constipation POLYETHYLENE GLYCOL 3350 90852924096 No Longer Active Checo Conklin MD Active PROTONIX 40 MG ORAL TABLET DELAYED RELEASE 1 pill by m outh daily, for acid reflux PANTOPRAZOLE SODIUM 47621717256 No Longer Activ e Corry Méndez LPN Active FLAGYL 500 MG ORAL TABLET 1 tablet by mouth bid 08/29 METRONIDAZOLE 88091277082 No Longer Active Corry Méndez LPN Active CLARITHROMYCIN 500 MG ORAL TABLET 1 tab po BID x 14 days CLARITHROMYCIN 38853346283 No Longer Active Corry Méndez LPN Active AMOXICILLIN 500 MG ORAL CAPSULE 2 po BID x 14 days for H. Pylori AMOXICILLIN 52550385307 No Longer Active Corry Méndez LPN Active FLUTICASONE PROPIONATE 50 MCG/ACT NASAL SUSPENSION 2 s prays/nostril qd PRN Congestion/Allergies FLUTICASONE PROPIONATE 4818231210 9 No Longer Active Checo Conklin MD Active AMOXICILLIN 500 MG ORAL CAPSULE 2 po BID x 10 days 201 01/15/27 AMOXICILLIN 12211134439 No Longer Active Checo Conklin MD Activ e CLARITIN 10 MG ORAL TABLET 1 tablet by mouth daily as needed for allergies LORATADINE 34817434868 No Longer Active Checo Ortiz MD Active BACTRIM DS 800-160 MG ORAL TABLET 1 tab by mouth twice daily 201 12/19/26 TRIMETHOPRIM-SULFAMETHOXAZOLE 65595193175 No Longer Active Ragini Carrillo MD Active DIFLUCAN 150 MG ORAL TABLET 1 tablet by mouth qod 2015 FLUCONAZOLE 33967754324 No Longer Active Efren Medel LINEN WORKER Act mike AZITHROMYCIN 250 MG ORAL TABLET 2 po qd x 1 day, then 1 po q d x 4 days AZITHROMYCIN 36707533444 No Longer Active Efren flores [employer] WORK[employer] Active FLAGYL 500 MG ORAL TABLET 1 tablet by mouth bid 04/13 METRONIDAZOLE 70625512096 No Longer Active Checo Conklin MD Acti ve FOCALIN XR 10 MG ORAL CAPSULE EXTENDED RELEASE 24 HOUR 1 po q a.m. DEXMETHYLPHENIDATE HCL 21058630000 Active Checo Conklin MD Active MAGNESIUM CITRATE 1.745 GM/30ML ORAL SOLUTION 150ml po BID P RN Constipation MAGNESIUM CITRATE 91813229601 No Longer Active Checo Conklin MD Active BACTROBAN 2 % EXTERNAL CREAM Apply to affected area BID for up to 10 days MUPIROCIN CALCIUM 86430486645 No Longer Active Checo Conklin MD Active HYDROCODONE-ACETAMINOPHEN 5-325 MG ORAL TABLET 1 tab b y mouth every 6 hours as needed HYDROCODONE-ACETAMINOPHEN 61489125945 No Longer Active Checo Conklin MD Active IBUPROFEN 800 MG ORAL TABLET 1 tab every 8 hours with food 03/20 IBUPROFEN 66868094634 No Longer Active Checo Conklin MD Active DIFLUCAN 150 MG ORAL TABLET 1 tablet by mouth if neede d, hold until symptoms start FLUCONAZOLE 36127733721 No Longer Active Checo Conklin MD Active BACTRIM DS 800-160 MG ORAL TABLET 1 tab by mouth twice daily 201 11/23/03 TRIMETHOPRIM-SULFAMETHOXAZOLE 91155062100 No Longer Active K bernice Méndez LPN Active HYDROCODONE-ACETAMINOPHEN 5-325 MG ORAL TABLET 0.5 to 1 tab by mouth every 6 hours as needed HYDROCODONE-ACETAMINOPHEN 77716507898 No Longer Active Checo Conklin MD Active ONDANSETRON 8 MG ORAL TABLET DISINTEGRATING place one tablet on tongue and allow to dissolve every 6 hours as needed for vomitting ONDANSETRON 43710502154 No Longer Active Checo Conklin MD Activ e COMPRO 25 MG RECTAL SUPPOSITORY insert or apply one garza ppository rectally as directed every 12 hours as needed for nausea PROCHLORPERAZINE 71111785580 No Longer Active Checo Conklin MD A ctive SUMATRIPTAN SUCCINATE 100 MG ORAL TABLET Take one PRN for migran e SUMATRIPTAN SUCCINATE 24374146734 No Longer Active Checo Conklin MD Active TRAVEL SICKNESS 25 MG ORAL TABLET CHEWABLE chew and sw allow one tablet every 6 hours as needed MECLIZINE HCL 89049951385 No Longer A ctive Checo Conklin MD Active BUPROPION HCL ER (SR) 100 MG ORAL TABLET EXTENDED RELE ASE 12 HOUR take one tablet by mouth one time daily for one week then take 1 two times daily BUPROPION HCL 10294492066 No Longer Active Checo gallagher MD Active TERBINAFINE HCL 250 MG ORAL TABLET take one table PO one time da moises TERBINAFINE HCL 76738939051 No Longer Active Checo Conklin MD Active METOCLOPRAMIDE HCL 10 MG ORAL TABLET take one PO tid PRN nausea METOCLOPRAMIDE HCL 00110560582 No Longer Active Checo Conklin MD Active DICLOFENAC SODIUM 75 MG ORAL TABLET DELAYED RELEASE 1 tablet by mouth twice daily PRN Knee pain DICLOFENAC SODIUM 17750211874 No Longer Active Checo Conklin MD Active LAMISIL 250 MG ORAL TABLET 1 po qd TERBINAFI NE HCL 81393879580 No Longer Active Checo Conklin MD Active REGLAN 10 MG ORAL TABLET 1 po TID PRN Nausea 3 METOCLOPRAMIDE HCL 73972693991 No Longer Active Checo Conklin MD Active CELEXA 20 MG ORAL TABLET 1 tablet by mouth daily 09/26 CITALOPRAM HYDROBROMIDE 46607150406 No Longer Active Checo Conklin MD Active AZITHROMYCIN 250 MG ORAL TABLET 2 po qd x 1 day, then 1 po q d x 4 days AZITHROMYCIN 40247827249 No Longer Active Checo Ortiz MD Active HYDROCODONE-ACETAMINOPHEN 5-325 MG ORAL TABLET 1 po q 6hr PRN Pa in HYDROCODONE-ACETAMINOPHEN 75127690696 No Longer Active Lenora Conklin MD Active PHENAZOPYRIDINE HCL 200 MG ORAL TABLET take 1 tab po TID for bladder pain PHENAZOPYRIDINE HCL 80019881244 No Longer Active Joe Conklin MD Active CIPRO 500 MG ORAL TABLET 1 tablet by mouth twice daily CIPROFLOXACIN HCL 20815612242 No Longer Active Dangelo Rangel MD Active HYDROCODONE-ACETAMINOPHEN 5-325 MG ORAL TABLET 1/2 to 1 po q 4 hours prn cough HYDROCODONE-ACETAMINOPHEN 31703824683 No Longer Activ candy Rangel MD Active BACTRIM DS 800-160 MG ORAL TABLET 1 po BID x 7 days 29/04/10 SULFAMETHOXAZOLE-TRIMETHOPRIM 61078247562 No Longer Active Checo Conklin MD Active PREDNISONE 20 MG ORAL TABLET 2 tabs daily for 3 days, 1 tab daily for 3 days, 1/2 tab daily for 2 days PREDNISONE 37091118145 No Longer Active Checo Conklin MD Active TRIAMCINOLONE ACETONIDE 0.1 % EXTERNAL OINTMENT Apply to affected areas TID for up to 2 weeks TRIAMCINOLONE ACETONIDE 12911596786 No Longer Active Checo Conklin MD Active CEFDINIR 300 MG ORAL CAPSULE by mouth twice a day 2013 CEFDINIR 81768920509 No Longer Active Dangelo Rangel MD Acti ve BUPROPION HCL ER (SMOKING DET) 150 MG ORAL TABLET EXTE NDED RELEASE 12 HOUR 1 a day for 1 week then 1 twice a day BUPROPION HCL (SMOKING DETER) 27943711602 No Longer Active Checo Conklin MD Active SIMVASTATIN 20 MG ORAL TABLET 1 po qd SIMVASTAT IN 14012685799 Active Checo Conklin MD Active CHANTIX STARTING MONTH KARTHIK 0.5 MG X 11 & 1 MG X 42 ORA L TABLET 0.5mg daily for 3 days, then 0.5mg BID for 4 days, then 1mg BID VARENICLINE TARTRATE 18356845281 No Longer Active Checo Conklin MD Activ e XANAX 0.5 MG ORAL TABLET 1 po BID PRN anxiety A LPRAZOLAM 39738103241 Active Thomas Marks DO Active CONCERTA 18 MG ORAL TABLET EXTENDED RELEASE 1 po q a.m. METHYLPHENIDATE HCL 63508712867 No Longer Active Checo Conklin MD Active AMBIEN 5 MG ORAL TABLET 1 po qHS PRN Insomnia Z OLPIDEM TARTRATE 95956873480 Active Thomas Marks DO Active TRAZODONE HCL 100 MG ORAL TABLET 0.5 to 1 po qHS PRN Insomnia 20 30/07/08 TRAZODONE HCL 40705985861 No Longer Active Checo Conklin MD Active FIORICET 325-50-40 MG TAB 1 tablet by mouth four times daily as needed [id number] 23747179932 No Longer Active Checo Conklin MD Active PHENERGAN CREAM* 25mg applied to wrist q6hr PRN Nausea PHENERGAN CREAM* No Longer Active Checo Conklin MD A ctive FLONASE 50 MCG/ACT NASAL SUSPENSION 1 spray each nostril am and hs FLUTICASONE PROPIONATE 52728710717 No Longer Active Checo Conklin MD Active ANTIPYRINE-BENZOCAINE 5.4-1.4 % OTIC SOLUTION 1-2 drops in affec yohannes ear BENZOCAINE-ANTIPYRINE 70394998887 No Longer Active Checo Conklin MD Active CEFDINIR 300 MG ORAL CAPSULE 1 po bid CEFDINIR 02345338514 No Longer Active Checo Conklin MD Active PREDNISONE 20 MG ORAL TABLET 2 tabs daily for 3 days, 1 tab daily for 3 days, 1/2 tab daily for 2 days PREDNISONE 67878970376 No Longer Active Checo Conklin MD Active AZITHROMYCIN 250 MG ORAL TABLET 2 po qd x 1 day, then 1 po q d x 4 days AZITHROMYCIN 76900918143 No Longer Active Checo Ortiz MD Active PREDNISONE 20 MG ORAL TABLET 2 tabs daily for 3 days, 1 tab daily for 3 days, 1/2 tab daily for 2 days PREDNISONE 60415600394 No Longer Active Checo Conklin MD Active ZITHROMAX Z-KARTHIK 250 MG ORAL TABLET 2 today, then 1 daily for 4 d ays AZITHROMYCIN 37674022568 No Longer Active Paul Hamlin MD Active FOCALIN XR 10 MG ORAL CAPSULE EXTENDED RELEASE 24 HOUR 1 po q a. m. DEXMETHYLPHENIDATE HCL 13680150264 No Longer Active Paul Hamlin MD Active PERCOCET 10-325 MG ORAL TABLET 1 tablet every 6 hours as needed for pain OXYCODONE-ACETAMINOPHEN 66444087733 No Longer Active Paul Hamlin MD Active LORTAB 5-500 MG ORAL TABLET 1/2 to 1 tablet by mouth e very 4 hours as needed for pain HYDROCODONE-ACETAMINOPHEN 86920659999 No Longer Active Checo Conklin MD Active FOCALIN XR 15 MG ORAL CAPSULE EXTENDED RELEASE 24 HOUR 1 po q a. m. DEXMETHYLPHENIDATE HCL 92084257224 No Longer Active Checo Conklin MD Active ZOFRAN ODT 4 MG ORAL TABLET DISINTEGRATING 1 po q6hr PRN Nausea ONDANSETRON 16455131000 No Longer Active Checo Conklin MD Active PERCOCET 5-325 MG ORAL TABLET 1 tablet by mouth every 6 hour s as needed OXYCODONE-ACETAMINOPHEN 93891010032 No Longer Active Checo Conklin MD Active PYRIDIUM 200 MG ORAL TABLET take 1 tab po TID prn urinary pain. PHENAZOPYRIDINE HCL 91393218462 No Longer Active Checo Joshua Active FLUCONAZOLE 150 MG ORAL TABLET take 1 tab po qday once FLUCONAZOLE 49057316799 No Longer Active Dangelo Rangel MD Acti ve CIPRO 500 MG ORAL TABLET 1 tablet by mouth twice daily CIPROFLOXACIN HCL 62270247436 No Longer Active Dangelo Rangel MD Active PYRIDIUM 200 MG ORAL TABLET take 1 tab po TID prn urinary pain. PYRIDIUM 200 MG ORAL TABLET 8058326 PHENAZOPYRIDINE HCL Inactive PERCOCET 5-325 MG ORAL TABLET 1 tablet by mouth every 6 hour s as needed PERCOCET 5-325 MG ORAL TABLET 0367271 OXYCODONE-ACETAMINOPHEN Inactive ZOFRAN ODT 4 MG ORAL TABLET DISINTEGRATING 1 po q6hr PRN Nausea ZOFRAN ODT 4 MG ORAL TABLET DISINTEGRATING 046469 ONDAN SETRON Inactive FOCALIN XR 15 MG [...] for pain PERCOCET 10-325 MG ORAL TABLET 1461535 OXYCODONE-ACETAMI NOPHEN Inactive FOCALIN XR 10 MG ORAL CAPSULE EXTENDED RELEASE 24 HOUR 1 po q a. m. FOCALIN XR 10 MG ORAL CAPSULE EXTENDED RELEASE 24 HOUR DEXMETHYLPHENIDATE HCL Inactive CEFDINIR 300 MG ORAL CAPSULE 1 po bid CEFDINI R 300 MG ORAL CAPSULE 658084 CEFDINIR Inactive ANTIPYRINE-BENZOCAINE 5.4-1.4 % OTIC SOLUTION 1-2 drops in affec yohannes ear ANTIPYRINE-BENZOCAINE 5.4-1.4 % OTIC SOLUTION BENZOCAINE-ANTIPYRINE Inactive FLONASE 50 MCG/ACT NASAL SUSPENSION 1 spray each nostril am and hs FLONASE 50 MCG/ACT NASAL SUSPENSION 0583318 FLUTICASONE PROPIONATE I nactive PHENERGAN CREAM* 25mg applied to wrist q6hr PRN Nausea PHENERGAN CREAM* Inactive FIORICET 325-50-40 MG TAB 1 tablet by mouth four times daily as needed FIORICET 325-50-40 MG TAB ACETAMINOPHEN-C AFF-BUTALBITAL Inactive TRAZODONE HCL 100 MG ORAL TABLET 0.5 to 1 po qHS PRN Insomnia 20 30/07/08 TRAZODONE HCL 100 MG ORAL TABLET 207728 TRAZODONE HCL Inactive CONCERTA 18 MG ORAL [...] cough HYDROCODONE-ACETAMINOPHEN 5-325 MG ORAL TABLET 8 08360 HYDROCODONE-ACETAMINOPHEN Inactive PHENAZOPYRIDINE HCL 200 MG ORAL TABLET take 1 tab po TID for bladder pain PHENAZOPYRIDINE HCL 200 MG ORAL TABLET 9128531 PHENAZOPYRIDINE HCL Inactive HYDROCODONE-ACETAMINOPHEN 5-325 MG ORAL TABLET 1 po q 6hr PRN Pa in HYDROCODONE-ACETAMINOPHEN 5-325 MG ORAL TABLET 067940 HYDROCODONE-ACETAMINOPHEN Inactive CELEXA 20 MG ORAL TABLET 1 tablet by mouth daily 09/26 CELEXA 20 MG ORAL TABLET 118259 CITALOPRAM HYDROBROMIDE Inactive REGLAN 10 MG ORAL TABLET 1 po TID PRN Nausea 3 REGLAN 10 MG ORAL TABLET 486233 METOCLOPRAMIDE HCL Inactive LAMISIL 250 MG ORAL TABLET 1 po qd L AMISIL 250 MG ORAL TABLET 184311 TERBINAFINE HCL Inactive DICLOFENAC SODIUM 75 MG ORAL TABLET DELAYED RELEASE 1 tablet by mouth twice daily PRN Knee pain DICLOFENAC SODIUM 75 MG ORAL TABLET DELAYED RELEASE 520960 DICLOFENAC SODIUM Inactive METOCLOPRAMIDE HCL 10 MG ORAL TABLET take one PO tid PRN nausea METOCLOPRAMIDE HCL 10 MG ORAL TABLET 150199 METOCLOPRAM ZACH HCL Inactive TERBINAFINE HCL 250 MG ORAL TABLET take one table PO one time da moises TERBINAFINE HCL 250 MG ORAL TABLET 874439 TERBINAFINE H CL Inactive BUPROPION HCL ER [...] SICKNESS 25 M G ORAL TABLET CHEWABLE 555972 MECLIZINE HCL Inactive SUMATRIPTAN SUCCINATE 100 MG ORAL TABLET Take one PRN for migran e SUMATRIPTAN SUCCINATE 100 MG ORAL TABLET 296776 SUMATRIPTAN SUCCINATE Inactive COMPRO 25 MG RECTAL SUPPOSITORY insert or apply one garza ppository rectally as directed every 12 hours as needed for nausea COMPRO 25 MG RECTAL SUPPOSITORY 597010 PROCHLORPERAZINE Inactive ONDANSETRON 8 MG ORAL TABLET DISINTEGRATING place one tablet on tongue and allow to dissolve every 6 hours as needed for vomitting ONDANSETRON 8 MG ORAL TABLET DISINTEGRATING 323746 ONDANSETRON Inactive HYDROCODONE-ACETAMINOPHEN 5-325 MG ORAL TABLET 0.5 to 1 tab by mouth every 6 hours as needed HYDROCODONE-ACETAMIN OPHEN 5-325 MG ORAL TABLET 937414 HYDROCODONE-ACETAMINOPHEN Inactive BACTRIM DS 800-160 MG ORAL TABLET 1 tab by mouth twice daily 201 11/23/03 BACTRIM DS 800-160 MG ORAL TABLET 755879 TRIMETHOPRIM-SULFAMETHOXAZOLE Inactive DIFLUCAN 150 MG ORAL TABLET 1 tablet by mouth if neede d, hold until symptoms start DIFLUCAN 150 MG ORAL TABLET 999654 FLUCONAZ OLE Inactive IBUPROFEN 800 MG ORAL TABLET 1 tab every 8 hours with food 03/20 IBUPROFEN 800 MG ORAL TABLET 109355 IBUPROFEN [place] ctive HYDROCODONE-ACETAMINOPHEN 5-325 MG ORAL TABLET 1 tab b y mouth every 6 hours as needed HYDROCODONE-ACETAMINOPHEN 5-325 MG ORAL TABLET 825498 HYDROCODONE-ACETAMINOPHEN Inactive BACTROBAN 2 % EXTERNAL CREAM Apply to affected area BID for up to 10 days BACTROBAN 2 % EXTERNAL CREAM 886600 MUPIROCIN CA LCIUM Inactive MAGNESIUM CITRATE 1.745 GM/30ML ORAL SOLUTION 150ml po BID P RN Constipation MAGNESIUM CITRATE 1.745 GM/30ML ORAL SOLUTION 10 08144 MAGNESIUM CITRATE Inactive DIFLUCAN 150 MG ORAL TABLET 1 tablet by mouth qod 2015 DIFLUCAN 150 MG ORAL TABLET 916435 FLUCONAZOLE Inactive BACTRIM DS 800-160 MG ORAL TABLET 1 tab by mouth twice daily 201 12/19/26 BACTRIM DS 800-160 MG ORAL TABLET 272498 TRIMETHOPRIM-SULFAMETHOXAZOLE Inactive CLARITIN 10 MG ORAL TABLET 1 tablet by mouth daily as needed for allergies CLARITIN 10 MG ORAL TABLET 837728 LORATADINE I nactive FLUTICASONE PROPIONATE 50 MCG/ACT NASAL SUSPENSION 2 s prays/nostril qd PRN Congestion/Allergies FLUTICASONE PROPION ATE 50 MCG/ACT NASAL SUSPENSION 7943135 FLUTICASONE PROPIONATE Inactive MIRALAX ORAL POWDER 8.5 to 17g po qd PRN Constipation MIRALAX ORAL POWDER 368387 POLYETHYLENE GLYCOL 3350 Inactive IBUPROFEN 800 MG ORAL TABLET 1 tab every 8 hours as needed for p ain IBUPROFEN 800 MG ORAL TABLET 745887 IBUPROFEN [place] ctive HYDROCHLOROTHIAZIDE 12.5 MG ORAL CAPSULE 1 po qd PRN Edema 01/10 HYDROCHLOROTHIAZIDE 12.5 MG ORAL CAPSULE 362491 HYDROCH LOROTHIAZIDE Inactive CIPRO 500 MG ORAL TABLET 1 tablet by mouth twice daily CIPRO 500 MG ORAL TABLET 129284 CIPROFLOXACIN HCL Inactive FLUCONAZOLE 150 MG ORAL TABLET take 1 tab po qday once FLUCONAZOLE 150 MG ORAL TABLET 324160 FLUCONAZOLE Inactive ZITHROMAX Z-KARTHIK 250 MG ORAL TABLET 2 today, then 1 daily for 4 d ays ZITHROMAX Z-KARTHIK 250 MG ORAL TABLET 287209 AZITHROMYCIN Inactive PREDNISONE 20 MG ORAL TABLET 2 tabs daily for 3 days, 1 tab daily for 3 days, 1/2 tab daily for 2 days PREDNISONE 20 MG ORAL T ABLET 723897 PREDNISONE Inactive AZITHROMYCIN 250 MG ORAL TABLET 2 po qd x 1 day, then 1 po q d x 4 days AZITHROMYCIN 250 MG ORAL TABLET 341247 AZITHROMY SPARKLE Inactive PREDNISONE 20 MG ORAL TABLET 2 tabs daily for 3 days, 1 tab daily for 3 days, 1/2 tab daily for 2 days PREDNISONE 20 MG ORAL TABLET 996791 PREDNISONE Inactive CEFDINIR 300 MG ORAL CAPSULE by mouth twice a day 2013 CEFDINIR 300 MG ORAL CAPSULE 525429 CEFDINIR Inactive TRIAMCINOLONE ACETONIDE 0.1 % EXTERNAL OINTMENT Apply to affected areas TID for up to 2 weeks TRIAMCINOLONE ACETON ZACH 0.1 % EXTERNAL OINTMENT 0867098 TRIAMCINOLONE ACETONIDE Inactive PREDNISONE 20 MG ORAL TABLET 2 tabs daily for 3 days, 1 tab daily for 3 days, 1/2 tab daily for 2 days PREDNISONE 20 MG ORAL T ABLET 753844 PREDNISONE Inactive BACTRIM DS 800-160 MG ORAL TABLET 1 po BID x 7 days 29/04/10 BACTRIM DS 800-160 MG ORAL TABLET 971568 SULFAMETHOXAZOLE-TRIMETHOP RIM Inactive CIPRO 500 MG ORAL TABLET 1 tablet by mouth twice daily CIPRO 500 MG ORAL TABLET 883615 CIPROFLOXACIN HCL Inactive AZITHROMYCIN 250 MG ORAL TABLET 2 po qd x 1 day, then 1 po q d x 4 days AZITHROMYCIN 250 MG ORAL TABLET 445209 AZITHROMY SPARKLE Inactive FLAGYL 500 MG ORAL TABLET 1 tablet by mouth bid 04/13 FLAGYL 500 MG ORAL TABLET 497147 METRONIDAZOLE Inactive AZITHROMYCIN 250 MG ORAL TABLET 2 po qd x 1 day, then 1 po q d x 4 days AZITHROMYCIN 250 MG ORAL TABLET 376571 AZITHROMY SPARKLE Inactive AMOXICILLIN 500 MG ORAL CAPSULE 2 po BID x 10 days 201 01/15/27 AMOXICILLIN 500 MG ORAL CAPSULE 706892 AMOXICILLIN Inactive AMOXICILLIN 500 MG ORAL CAPSULE 2 po BID x 14 days for H. Pylori AMOXICILLIN 500 MG ORAL CAPSULE 660291 AMOXICILLIN Inactive CLARITHROMYCIN 500 MG ORAL TABLET 1 tab po BID x 14 days CLARITHROMYCIN 500 MG ORAL TABLET 696777 CLARITHROMYCIN Inacti ve FLAGYL 500 MG ORAL TABLET 1 tablet by mouth bid 08/29 FLAGYL 500 MG ORAL TABLET 836672 METRONIDAZOLE Inactive PROTONIX 40 MG ORAL TABLET DELAYED RELEASE 1 pill by m outh daily, for acid reflux PROTONIX 40 MG ORAL TABLET DELAYED RELEAS E 176726 PANTOPRAZOLE SODIUM Inactive Immunizations Vaccine Administration Date [...] ... - Chemistry sodium, serum 138 mmol/L 731-849 3467/06/27 carbon dioxide, venous blood 30.3 mmol/L 21.0-32 [...] ... - Chemistry sodium, serum 139 mmol/L 295-381 0200/11/28 carbon dioxide, venous blood 26.0 mmol/L 21.0-32 [...] 5.0-8.5 Encounters Code Encounter Date Provider Facility CPT-54352 Level 3 Est. Patient 16:46:51 CDT Thomas reynolds DO [facility] CPT-79534 [id number] Vst-Est Level III 14:40:49 CDT Paul Hamlin MD [facility] CPT-08665 Level 4 Est. Patient 11:08:43 CDT Checo Conklin MD [facility] CPT-48065 [id number] Vst-Est Level III 09:37:41 CDT Dangelo Rangel MD [facility] CPT-72883 Level 4 Est. Patient 08:57:51 NURSE CONSULTANT Checo Conklin MD [facility] CPT-21510 Level 3 Est. Patient 11:24:55 NURSE CONSULTANT Efren almendarez APRN [facility] CPT-13101 Level 3 Est. Patient 13:05:44 CDT Paul Hamlin MD [facility] CPT-83102 Level 3 Est. Patient 11:29:55 CDT Checo Conklin MD [facility] CPT-96225 Level 4 Est. Patient 11:08:12 NURSE CONSULTANT Checo Conklin MD [facility] CPT-63720 Level 4 Est. Patient 16:06:48 NURSE CONSULTANT Checo Conklin MD [facility] CPT-11812 Level 3 Est. Patient 09:11:49 CDT Jillina F razell [facility] CPT-74136 Level 2 Est. Patient 19:53:27 CDT Tanner hill MD [facility] CPT-72298 Level 3 Est. Patient 09:15:34 CDT Efren Nicolas almendarez [facility] CPT-17413 Level 3 Est. Patient 11:28:51 NURSE CONSULTANT Efren Nicolas almendarez [facility] CPT-24864 Level 4 Est. Patient 13:55:46 NURSE CONSULTANT Checo Conklin MD [facility] CPT-00138 Level 4 Est. Patient 17:10:53 CDT Checo Conklin MD [facility] CPT-05782 Level 3 Est. Patient 15:56:22 CDT Checo Conklin MD [facility] CPT-14013 Level 3 Est. Patient 15:29:07 CDT Checo Conklin MD [facility] CPT-40251 Level 3 Est. Patient 14:38:41 CDT Checo Conklin MD [facility] CPT-30772 Level 3 Est. Patient 15:22:03 NURSE CONSULTANT Thomas reynolds DO [facility] CPT-05840 Level 3 Est. Patient 13:34:17 NURSE CONSULTANT Checo Conklin MD [facility] CPT-81441 Level 3 Est. Patient 12:29:32 CDT Dangelo arroyo MD [facility] CPT-71466 Level 3 Est. Patient 16:53:02 CDT Checo Conklin MD [facility] CPT-79457 Level 3 Est. Patient 16:37:13 CDT Checo Conklin MD [facility] CPT-86684 Level 3 Est. Patient 16:16:59 CDT Paul Hamlin MD [facility] CPT-71260 Level 3 Est. Patient 14:20:13 CDT Dangelo arroyo MD [facility] CPT-04875 Level 4 Est. Patient 11:29:33 CDT Checo Conklin MD [facility] CPT-12211 Level 3 Est. Patient 17:08:31 CDT Checo Conklin MD [facility] CPT-96277 Level 3 Est. Patient 16:50:42 NURSE CONSULTANT Checo Conklin MD [facility] CPT-39721 Level 4 Est. Patient 09:26:08 NURSE CONSULTANT Checo Conklin MD [facility] CPT-05377 Level 3 Est. Patient 11:37:10 CDT Checo Conklin MD [facility] CPT-03167 Level 4 Est. Patient 14:07:38 CDT Checo Conklin MD [facility] CPT-12509 Level 3 Est. Patient 09:54:41 CDT Checo Conklin MD [facility] CPT-05618 Level 3 Est. Patient 11:10:54 CDT Paul Hamlin MD [facility] CPT-00136 Level 3 Est. Patient 14:16:56 NURSE CONSULTANT Checo Conklin MD [facility] CPT-34055 Level 3 Est. Patient 11:04:11 NURSE CONSULTANT Checo Conklin MD [facility] CPT-96065 Level 3 Est. Patient 17:09:26 CDT Dangelo arroyo MD [facility] CPT-95014 Level 3 Est. Patient 16:54:37 CDT Checo Conklin MD [facility] Procedures Code Procedure Name Date Entry Date Standard Desc ription CPT-83518 Abx/Therapy Injection 18:17:48 CDT CPT-J2550 Phenergan 25 mg (Promethazine) 16:48:23 CDT CPT-J1885 Toradol 60 mg 16:48:23 CDT CPT-29736 Wrist, right, comp 3V - XRAY USE ONLY 09:24:31 CDT CPT-06911 Abd compl w upright - XRAY USE ONLY 1 1:36:54 NURSE CONSULTANT CPT-90007 UA w micro - LAB USE ONLY 17:06:46 CDT 2015 CPT-24552 BHCG Qual - LAB USE ONLY 17:06:46 CDT 05/06 CPT-01007 CMP - LAB USE ONLY 17:06:46 CDT CPT-29023 CBC with Diff - LAB USE ONLY 17:06:45 CDT 2 CPT-26382 Venipuncture Draw Fee 17:06:45 CDT CPT-LR Lesion Removal 19:53:27 CDT CPT-OV Office Visit 11:31:28 CDT CPT-21163 Tubersol 09:39:29 CDT CPT-J2550 Phenergan 25 mg (Promethazine) 13:59:02 NURSE CONSULTANT CPT-J1885 Toradol 60 mg (Ketorolac) 13:59:02 NURSE CONSULTANT 2012
--- OUTSIDE RECORDS SUMMARY | 2019-09-29 01:49 | XMS REPORT | Clinical Summary ---
Author Author Admin, Bethany Ayala [facility] Address Unknown Phone Unavailable Allergies, [...] Body Mass Index 25.0-25.9 Adult Resolved 2017 aPul Hamlin MD Body Mass Index 25.0-25.9, adult [...] RELEASE 1 daily with furosemide POTASSIUM CHLORIDE 08390852527 Active Paul Hamlin MD Active FUROSEMIDE 20 MG ORAL TABLET 1 daily for swelling FUROSEMIDE 24313180968 Active Paul Hamlin MD Active HYDROCHLOROTHIAZIDE 12.5 MG ORAL CAPSULE 1 po qd PRN Edema 01/10 HYDROCHLOROTHIAZIDE 64211491331 No Longer Active Paul Hamlin MD Active IBUPROFEN 800 MG ORAL TABLET 1 tab every 8 hours as needed for p ain IBUPROFEN 68108394577 No Longer Active Paul Hamlin MD Active PAROXETINE HCL 40 MG ORAL TABLET 1 po qd PAR OXETINE HCL 38105972141 Active Checo Conklin MD Active MIRALAX ORAL POWDER 8.5 to 17g po qd PRN Constipation POLYETHYLENE GLYCOL 3350 45324713844 No Longer Active Checo Conklin MD Active PROTONIX 40 MG ORAL TABLET DELAYED RELEASE 1 pill by m outh daily, for acid reflux PANTOPRAZOLE SODIUM 93701810817 No Longer Activ e Corry Méndez LPN Active FLAGYL 500 MG ORAL TABLET 1 tablet by mouth bid 08/29 METRONIDAZOLE 51469419224 No Longer Active Corry Méndez LPN Active CLARITHROMYCIN 500 MG ORAL TABLET 1 tab po BID x 14 days CLARITHROMYCIN 92060860229 No Longer Active Corry Méndez LPN Active AMOXICILLIN 500 MG ORAL CAPSULE 2 po BID x 14 days for H. Pylori AMOXICILLIN 02471147909 No Longer Active Corry Méndez LPN Active FLUTICASONE PROPIONATE 50 MCG/ACT NASAL SUSPENSION 2 s prays/nostril qd PRN Congestion/Allergies FLUTICASONE PROPIONATE 9766943767 9 No Longer Active Checo Conklin MD Active AMOXICILLIN 500 MG ORAL CAPSULE 2 po BID x 10 days 201 01/15/27 AMOXICILLIN 36537831330 No Longer Active Checo Conklin MD Activ e CLARITIN 10 MG ORAL TABLET 1 tablet by mouth daily as needed for allergies LORATADINE 50102113605 No Longer Active Checo Ortiz MD Active BACTRIM DS 800-160 MG ORAL TABLET 1 tab by mouth twice daily 201 12/19/26 TRIMETHOPRIM-SULFAMETHOXAZOLE 38499025292 No Longer Active Ragini Carrillo MD Active DIFLUCAN 150 MG ORAL TABLET 1 tablet by mouth qod 2015 FLUCONAZOLE 88698198183 No Longer Active Efren Medel CLEAT THROWER Act mike AZITHROMYCIN 250 MG ORAL TABLET 2 po qd x 1 day, then 1 po q d x 4 days AZITHROMYCIN 39202976696 No Longer Active Efren flores CLEAT THROWER Active FLAGYL 500 MG ORAL TABLET 1 tablet by mouth bid 04/13 METRONIDAZOLE 09373192359 No Longer Active Checo Conklin MD Acti ve FOCALIN XR 10 MG ORAL CAPSULE EXTENDED RELEASE 24 HOUR 1 po q a.m. DEXMETHYLPHENIDATE HCL 46687511985 Active Checo Conklin MD Active MAGNESIUM CITRATE 1.745 GM/30ML ORAL SOLUTION 150ml po BID P RN Constipation MAGNESIUM CITRATE 00955093055 No Longer Active Checo Conklin MD Active BACTROBAN 2 % EXTERNAL CREAM Apply to affected area BID for up to 10 days MUPIROCIN CALCIUM 28352657912 No Longer Active Checo Conklin MD Active HYDROCODONE-ACETAMINOPHEN 5-325 MG ORAL TABLET 1 tab b y mouth every 6 hours as needed HYDROCODONE-ACETAMINOPHEN 10273173191 No Longer Active Checo Conklin MD Active IBUPROFEN 800 MG ORAL TABLET 1 tab every 8 hours with food 03/20 IBUPROFEN 53518763524 No Longer Active Checo Conklin MD Active DIFLUCAN 150 MG ORAL TABLET 1 tablet by mouth if neede d, hold until symptoms start FLUCONAZOLE 26953710950 No Longer Active Checo Conklin MD Active BACTRIM DS 800-160 MG ORAL TABLET 1 tab by mouth twice daily 201 11/23/03 TRIMETHOPRIM-SULFAMETHOXAZOLE 12392941871 No Longer Active K bernice Méndez LPN Active HYDROCODONE-ACETAMINOPHEN 5-325 MG ORAL TABLET 0.5 to 1 tab by mouth every 6 hours as needed HYDROCODONE-ACETAMINOPHEN 10321160667 No Longer Active Checo Conklin MD Active ONDANSETRON 8 MG ORAL TABLET DISINTEGRATING place one tablet on tongue and allow to dissolve every 6 hours as needed for vomitting ONDANSETRON 75875941536 No Longer Active Checo Conklin MD Activ e COMPRO 25 MG RECTAL SUPPOSITORY insert or apply one garza ppository rectally as directed every 12 hours as needed for nausea PROCHLORPERAZINE 28994028092 No Longer Active Checo Conklin MD A ctive SUMATRIPTAN SUCCINATE 100 MG ORAL TABLET Take one PRN for migran e SUMATRIPTAN SUCCINATE 42854658336 No Longer Active Checo Conklin MD Active TRAVEL SICKNESS 25 MG ORAL TABLET CHEWABLE chew and sw allow one tablet every 6 hours as needed MECLIZINE HCL 35978628925 No Longer A ctive Checo Conklin MD Active BUPROPION HCL ER (SR) 100 MG ORAL TABLET EXTENDED RELE ASE 12 HOUR take one tablet by mouth one time daily for one week then take 1 two times daily BUPROPION HCL 20537080339 No Longer Active Checo gallagher MD Active TERBINAFINE HCL 250 MG ORAL TABLET take one table PO one time da moises TERBINAFINE HCL 22879770377 No Longer Active Checo Conklin MD Active METOCLOPRAMIDE HCL 10 MG ORAL TABLET take one PO tid PRN nausea METOCLOPRAMIDE HCL 96131302152 No Longer Active Checo Conklin MD Active DICLOFENAC SODIUM 75 MG ORAL TABLET DELAYED RELEASE 1 tablet by mouth twice daily PRN Knee pain DICLOFENAC SODIUM 68589723829 No Longer Active Checo Conklin MD Active LAMISIL 250 MG ORAL TABLET 1 po qd TERBINAFI NE HCL 16207466902 No Longer Active Checo Conklin MD Active REGLAN 10 MG ORAL TABLET 1 po TID PRN Nausea 3 METOCLOPRAMIDE HCL 75757750760 No Longer Active Checo Conklin MD Active CELEXA 20 MG ORAL TABLET 1 tablet by mouth daily 09/26 CITALOPRAM HYDROBROMIDE 12092891465 No Longer Active Checo Conklin MD Active AZITHROMYCIN 250 MG ORAL TABLET 2 po qd x 1 day, then 1 po q d x 4 days AZITHROMYCIN 31314677811 No Longer Active Checo Ortiz MD Active HYDROCODONE-ACETAMINOPHEN 5-325 MG ORAL TABLET 1 po q 6hr PRN Pa in HYDROCODONE-ACETAMINOPHEN 47965788158 No Longer Active Lenora Conklin MD Active PHENAZOPYRIDINE HCL 200 MG ORAL TABLET take 1 tab po TID for bladder pain PHENAZOPYRIDINE HCL 18888503434 No Longer Active Joe Conklin MD Active CIPRO 500 MG ORAL TABLET 1 tablet by mouth twice daily CIPROFLOXACIN HCL 70447502951 No Longer Active Dangelo Rangel MD Active HYDROCODONE-ACETAMINOPHEN 5-325 MG ORAL TABLET 1/2 to 1 po q 4 hours prn cough HYDROCODONE-ACETAMINOPHEN 40444377254 No Longer Activ candy Rangel MD Active BACTRIM DS 800-160 MG ORAL TABLET 1 po BID x 7 days 29/04/10 SULFAMETHOXAZOLE-TRIMETHOPRIM 03663180177 No Longer Active Checo Conklin MD Active PREDNISONE 20 MG ORAL TABLET 2 tabs daily for 3 days, 1 tab daily for 3 days, 1/2 tab daily for 2 days PREDNISONE 83730626564 No Longer Active Checo Conklin MD Active TRIAMCINOLONE ACETONIDE 0.1 % EXTERNAL OINTMENT Apply to affected areas TID for up to 2 weeks TRIAMCINOLONE ACETONIDE 21101110358 No Longer Active Checo Conklin MD Active CEFDINIR 300 MG ORAL CAPSULE by mouth twice a day 2013 CEFDINIR 19031002720 No Longer Active Dangelo Rangel MD Acti ve BUPROPION HCL ER (SMOKING DET) 150 MG ORAL TABLET EXTE NDED RELEASE 12 HOUR 1 a day for 1 week then 1 twice a day BUPROPION HCL (SMOKING DETER) 41414407269 No Longer Active Checo Conklin MD Active SIMVASTATIN 20 MG ORAL TABLET 1 po qd SIMVASTAT IN 03879653965 Active Checo Conklin MD Active CHANTIX STARTING MONTH KARTHIK 0.5 MG X 11 & 1 MG X 42 ORA L TABLET 0.5mg daily for 3 days, then 0.5mg BID for 4 days, then 1mg BID VARENICLINE TARTRATE 50240925390 No Longer Active Checo Conklin MD Activ e XANAX 0.5 MG ORAL TABLET 1 po BID PRN anxiety A LPRAZOLAM 49587840341 Active Thomas Marks DO Active CONCERTA 18 MG ORAL TABLET EXTENDED RELEASE 1 po q a.m. METHYLPHENIDATE HCL 40032298070 No Longer Active Checo Conklin MD Active AMBIEN 5 MG ORAL TABLET 1 po qHS PRN Insomnia Z OLPIDEM TARTRATE 17042566193 Active Thomas Marks DO Active TRAZODONE HCL 100 MG ORAL TABLET 0.5 to 1 po qHS PRN Insomnia 20 30/07/08 TRAZODONE HCL 84812086740 No Longer Active Checo Conklin MD Active FIORICET 325-50-40 MG TAB 1 tablet by mouth four times daily as needed [id number] 94206784695 No Longer Active Checo Conklin MD Active PHENERGAN CREAM* 25mg applied to wrist q6hr PRN Nausea PHENERGAN CREAM* No Longer Active Checo Conklin MD A ctive FLONASE 50 MCG/ACT NASAL SUSPENSION 1 spray each nostril am and hs FLUTICASONE PROPIONATE 41314546765 No Longer Active Checo Conklin MD Active ANTIPYRINE-BENZOCAINE 5.4-1.4 % OTIC SOLUTION 1-2 drops in affec yohannes ear BENZOCAINE-ANTIPYRINE 04525328806 No Longer Active Checo Conklin MD Active CEFDINIR 300 MG ORAL CAPSULE 1 po bid CEFDINIR 79636714027 No Longer Active Checo Conklin MD Active PREDNISONE 20 MG ORAL TABLET 2 tabs daily for 3 days, 1 tab daily for 3 days, 1/2 tab daily for 2 days PREDNISONE 06620409991 No Longer Active Checo Conklin MD Active AZITHROMYCIN 250 MG ORAL TABLET 2 po qd x 1 day, then 1 po q d x 4 days AZITHROMYCIN 73255217113 No Longer Active Checo Ortiz MD Active PREDNISONE 20 MG ORAL TABLET 2 tabs daily for 3 days, 1 tab daily for 3 days, 1/2 tab daily for 2 days PREDNISONE 85027638226 No Longer Active Checo Conklin MD Active ZITHROMAX Z-KARTHIK 250 MG ORAL TABLET 2 today, then 1 daily for 4 d ays AZITHROMYCIN 22870754766 No Longer Active Paul Hamlin MD Active FOCALIN XR 10 MG ORAL CAPSULE EXTENDED RELEASE 24 HOUR 1 po q a. m. DEXMETHYLPHENIDATE HCL 28390199754 No Longer Active Paul Hamlin MD Active PERCOCET 10-325 MG ORAL TABLET 1 tablet every 6 hours as needed for pain OXYCODONE-ACETAMINOPHEN 23760997372 No Longer Active Paul Hamlin MD Active LORTAB 5-500 MG ORAL TABLET 1/2 to 1 tablet by mouth e very 4 hours as needed for pain HYDROCODONE-ACETAMINOPHEN 17196829594 No Longer Active Checo Conklin MD Active FOCALIN XR 15 MG ORAL CAPSULE EXTENDED RELEASE 24 HOUR 1 po q a. m. DEXMETHYLPHENIDATE HCL 61319398059 No Longer Active Checo Conklin MD Active ZOFRAN ODT 4 MG ORAL TABLET DISINTEGRATING 1 po q6hr PRN Nausea ONDANSETRON 91178239117 No Longer Active Checo Conklin MD Active PERCOCET 5-325 MG ORAL TABLET 1 tablet by mouth every 6 hour s as needed OXYCODONE-ACETAMINOPHEN 44916040636 No Longer Active Checo Conklin MD Active PYRIDIUM 200 MG ORAL TABLET take 1 tab po TID prn urinary pain. PHENAZOPYRIDINE HCL 65533543354 No Longer Active Checo Joshua Active FLUCONAZOLE 150 MG ORAL TABLET take 1 tab po qday once FLUCONAZOLE 00007849855 No Longer Active Dangelo Rangel MD Acti ve CIPRO 500 MG ORAL TABLET 1 tablet by mouth twice daily CIPROFLOXACIN HCL 54887862680 No Longer Active Dangelo Rangel MD Active PYRIDIUM 200 MG ORAL TABLET take 1 tab po TID prn urinary pain. PYRIDIUM 200 MG ORAL TABLET 2195456 PHENAZOPYRIDINE HCL Inactive PERCOCET 5-325 MG ORAL TABLET 1 tablet by mouth every 6 hour s as needed PERCOCET 5-325 MG ORAL TABLET 6571957 OXYCODONE-ACETAMINOPHEN Inactive ZOFRAN ODT 4 MG ORAL TABLET DISINTEGRATING 1 po q6hr PRN Nausea ZOFRAN ODT 4 MG ORAL TABLET DISINTEGRATING 258205 ONDAN SETRON Inactive FOCALIN XR 15 MG [...] for pain PERCOCET 10-325 MG ORAL TABLET 9006817 OXYCODONE-ACETAMI NOPHEN Inactive FOCALIN XR 10 MG ORAL CAPSULE EXTENDED RELEASE 24 HOUR 1 po q a. m. FOCALIN XR 10 MG ORAL CAPSULE EXTENDED RELEASE 24 HOUR DEXMETHYLPHENIDATE HCL Inactive CEFDINIR 300 MG ORAL CAPSULE 1 po bid CEFDINI R 300 MG ORAL CAPSULE 707401 CEFDINIR Inactive ANTIPYRINE-BENZOCAINE 5.4-1.4 % OTIC SOLUTION 1-2 drops in affec yohannes ear ANTIPYRINE-BENZOCAINE 5.4-1.4 % OTIC SOLUTION BENZOCAINE-ANTIPYRINE Inactive FLONASE 50 MCG/ACT NASAL SUSPENSION 1 spray each nostril am and hs FLONASE 50 MCG/ACT NASAL SUSPENSION 2594641 FLUTICASONE PROPIONATE I nactive PHENERGAN CREAM* 25mg applied to wrist q6hr PRN Nausea PHENERGAN CREAM* Inactive FIORICET 325-50-40 MG TAB 1 tablet by mouth four times daily as needed FIORICET 325-50-40 MG TAB ACETAMINOPHEN-C AFF-BUTALBITAL Inactive TRAZODONE HCL 100 MG ORAL TABLET 0.5 to 1 po qHS PRN Insomnia 20 30/07/08 TRAZODONE HCL 100 MG ORAL TABLET 237746 TRAZODONE HCL Inactive CONCERTA 18 MG ORAL [...] cough HYDROCODONE-ACETAMINOPHEN 5-325 MG ORAL TABLET 8 06025 HYDROCODONE-ACETAMINOPHEN Inactive PHENAZOPYRIDINE HCL 200 MG ORAL TABLET take 1 tab po TID for bladder pain PHENAZOPYRIDINE HCL 200 MG ORAL TABLET 4949915 PHENAZOPYRIDINE HCL Inactive HYDROCODONE-ACETAMINOPHEN 5-325 MG ORAL TABLET 1 po q 6hr PRN Pa in HYDROCODONE-ACETAMINOPHEN 5-325 MG ORAL TABLET 028597 HYDROCODONE-ACETAMINOPHEN Inactive CELEXA 20 MG ORAL TABLET 1 tablet by mouth daily 09/26 CELEXA 20 MG ORAL TABLET 110667 CITALOPRAM HYDROBROMIDE Inactive REGLAN 10 MG ORAL TABLET 1 po TID PRN Nausea 3 REGLAN 10 MG ORAL TABLET 477732 METOCLOPRAMIDE HCL Inactive LAMISIL 250 MG ORAL TABLET 1 po qd L AMISIL 250 MG ORAL TABLET 600645 TERBINAFINE HCL Inactive DICLOFENAC SODIUM 75 MG ORAL TABLET DELAYED RELEASE 1 tablet by mouth twice daily PRN Knee pain DICLOFENAC SODIUM 75 MG ORAL TABLET DELAYED RELEASE 166213 DICLOFENAC SODIUM Inactive METOCLOPRAMIDE HCL 10 MG ORAL TABLET take one PO tid PRN nausea METOCLOPRAMIDE HCL 10 MG ORAL TABLET 524914 METOCLOPRAM ZACH HCL Inactive TERBINAFINE HCL 250 MG ORAL TABLET take one table PO one time da moises TERBINAFINE HCL 250 MG ORAL TABLET 241198 TERBINAFINE H CL Inactive BUPROPION HCL ER [...] SICKNESS 25 M G ORAL TABLET CHEWABLE 515664 MECLIZINE HCL Inactive SUMATRIPTAN SUCCINATE 100 MG ORAL TABLET Take one PRN for migran e SUMATRIPTAN SUCCINATE 100 MG ORAL TABLET 340424 SUMATRIPTAN SUCCINATE Inactive COMPRO 25 MG RECTAL SUPPOSITORY insert or apply one gazra ppository rectally as directed every 12 hours as needed for nausea COMPRO 25 MG RECTAL SUPPOSITORY 723844 PROCHLORPERAZINE Inactive ONDANSETRON 8 MG ORAL TABLET DISINTEGRATING place one tablet on tongue and allow to dissolve every 6 hours as needed for vomitting ONDANSETRON 8 MG ORAL TABLET DISINTEGRATING 638753 ONDANSETRON Inactive HYDROCODONE-ACETAMINOPHEN 5-325 MG ORAL TABLET 0.5 to 1 tab by mouth every 6 hours as needed HYDROCODONE-ACETAMIN OPHEN 5-325 MG ORAL TABLET 438355 HYDROCODONE-ACETAMINOPHEN Inactive BACTRIM DS 800-160 MG ORAL TABLET 1 tab by mouth twice daily 201 11/23/03 BACTRIM DS 800-160 MG ORAL TABLET 794981 TRIMETHOPRIM-SULFAMETHOXAZOLE Inactive DIFLUCAN 150 MG ORAL TABLET 1 tablet by mouth if neede d, hold until symptoms start DIFLUCAN 150 MG ORAL TABLET 479382 FLUCONAZ OLE Inactive IBUPROFEN 800 MG ORAL TABLET 1 tab every 8 hours with food 03/20 IBUPROFEN 800 MG ORAL TABLET 887254 IBUPROFEN [place] ctive HYDROCODONE-ACETAMINOPHEN 5-325 MG ORAL TABLET 1 tab b y mouth every 6 hours as needed HYDROCODONE-ACETAMINOPHEN 5-325 MG ORAL TABLET 228328 HYDROCODONE-ACETAMINOPHEN Inactive BACTROBAN 2 % EXTERNAL CREAM Apply to affected area BID for up to 10 days BACTROBAN 2 % EXTERNAL CREAM 286125 MUPIROCIN CA LCIUM Inactive MAGNESIUM CITRATE 1.745 GM/30ML ORAL SOLUTION 150ml po BID P RN Constipation MAGNESIUM CITRATE 1.745 GM/30ML ORAL SOLUTION 10 00181 MAGNESIUM CITRATE Inactive DIFLUCAN 150 MG ORAL TABLET 1 tablet by mouth qod 2015 DIFLUCAN 150 MG ORAL TABLET 192309 FLUCONAZOLE Inactive BACTRIM DS 800-160 MG ORAL TABLET 1 tab by mouth twice daily 201 12/19/26 BACTRIM DS 800-160 MG ORAL TABLET 722387 TRIMETHOPRIM-SULFAMETHOXAZOLE Inactive CLARITIN 10 MG ORAL TABLET 1 tablet by mouth daily as needed for allergies CLARITIN 10 MG ORAL TABLET 911953 LORATADINE I nactive FLUTICASONE PROPIONATE 50 MCG/ACT NASAL SUSPENSION 2 s prays/nostril qd PRN Congestion/Allergies FLUTICASONE PROPION ATE 50 MCG/ACT NASAL SUSPENSION 4336289 FLUTICASONE PROPIONATE Inactive MIRALAX ORAL POWDER 8.5 to 17g po qd PRN Constipation MIRALAX ORAL POWDER 138166 POLYETHYLENE GLYCOL 3350 Inactive IBUPROFEN 800 MG ORAL TABLET 1 tab every 8 hours as needed for p ain IBUPROFEN 800 MG ORAL TABLET 828142 IBUPROFEN [place] ctive HYDROCHLOROTHIAZIDE 12.5 MG ORAL CAPSULE 1 po qd PRN Edema 01/10 HYDROCHLOROTHIAZIDE 12.5 MG ORAL CAPSULE 866082 HYDROCH LOROTHIAZIDE Inactive CIPRO 500 MG ORAL TABLET 1 tablet by mouth twice daily CIPRO 500 MG ORAL TABLET 150381 CIPROFLOXACIN HCL Inactive FLUCONAZOLE 150 MG ORAL TABLET take 1 tab po qday once FLUCONAZOLE 150 MG ORAL TABLET 227155 FLUCONAZOLE Inactive ZITHROMAX Z-KARTHIK 250 MG ORAL TABLET 2 today, then 1 daily for 4 d ays ZITHROMAX Z-KARTHIK 250 MG ORAL TABLET 808560 AZITHROMYCIN Inactive PREDNISONE 20 MG ORAL TABLET 2 tabs daily for 3 days, 1 tab daily for 3 days, 1/2 tab daily for 2 days PREDNISONE 20 MG ORAL T ABLET 333398 PREDNISONE Inactive AZITHROMYCIN 250 MG ORAL TABLET 2 po qd x 1 day, then 1 po q d x 4 days AZITHROMYCIN 250 MG ORAL TABLET 895277 AZITHROMY SPARKLE Inactive PREDNISONE 20 MG ORAL TABLET 2 tabs daily for 3 days, 1 tab daily for 3 days, 1/2 tab daily for 2 days PREDNISONE 20 MG ORAL TABLET 954303 PREDNISONE Inactive CEFDINIR 300 MG ORAL CAPSULE by mouth twice a day 2013 CEFDINIR 300 MG ORAL CAPSULE 299628 CEFDINIR Inactive TRIAMCINOLONE ACETONIDE 0.1 % EXTERNAL OINTMENT Apply to affected areas TID for up to 2 weeks TRIAMCINOLONE ACETON ZACH 0.1 % EXTERNAL OINTMENT 5608953 TRIAMCINOLONE ACETONIDE Inactive PREDNISONE 20 MG ORAL TABLET 2 tabs daily for 3 days, 1 tab daily for 3 days, 1/2 tab daily for 2 days PREDNISONE 20 MG ORAL T ABLET 919094 PREDNISONE Inactive BACTRIM DS 800-160 MG ORAL TABLET 1 po BID x 7 days 29/04/10 BACTRIM DS 800-160 MG ORAL TABLET 362016 SULFAMETHOXAZOLE-TRIMETHOP RIM Inactive CIPRO 500 MG ORAL TABLET 1 tablet by mouth twice daily CIPRO 500 MG ORAL TABLET 405727 CIPROFLOXACIN HCL Inactive AZITHROMYCIN 250 MG ORAL TABLET 2 po qd x 1 day, then 1 po q d x 4 days AZITHROMYCIN 250 MG ORAL TABLET 888515 AZITHROMY SPARKLE Inactive FLAGYL 500 MG ORAL TABLET 1 tablet by mouth bid 04/13 FLAGYL 500 MG ORAL TABLET 602896 METRONIDAZOLE Inactive AZITHROMYCIN 250 MG ORAL TABLET 2 po qd x 1 day, then 1 po q d x 4 days AZITHROMYCIN 250 MG ORAL TABLET 294011 AZITHROMY SPARKLE Inactive AMOXICILLIN 500 MG ORAL CAPSULE 2 po BID x 10 days 201 01/15/27 AMOXICILLIN 500 MG ORAL CAPSULE 019040 AMOXICILLIN Inactive AMOXICILLIN 500 MG ORAL CAPSULE 2 po BID x 14 days for H. Pylori AMOXICILLIN 500 MG ORAL CAPSULE 876626 AMOXICILLIN Inactive CLARITHROMYCIN 500 MG ORAL TABLET 1 tab po BID x 14 days CLARITHROMYCIN 500 MG ORAL TABLET 341207 CLARITHROMYCIN Inacti ve FLAGYL 500 MG ORAL TABLET 1 tablet by mouth bid 08/29 FLAGYL 500 MG ORAL TABLET 768496 METRONIDAZOLE Inactive PROTONIX 40 MG ORAL TABLET DELAYED RELEASE 1 pill by m outh daily, for acid reflux PROTONIX 40 MG ORAL TABLET DELAYED RELEAS E 422427 PANTOPRAZOLE SODIUM Inactive Immunizations Vaccine Administration Date Value Standard Michael cription TB-PPD (tuberculin purified protein derivative), intra dermal administration Tubersol Vital Signs Date Name Value Unit Range Description blood pressure, diastolic, repeated by physician 81 [...] ... - Chemistry sodium, serum 138 mmol/L 053-428 2030/06/27 carbon dioxide, venous blood 30.3 mmol/L 21.0-32 [...] ... - Chemistry sodium, serum 139 mmol/L 150-855 8717/11/28 carbon dioxide, venous blood 26.0 mmol/L 21.0-32 [...] 5.0-8.5 Encounters Code Encounter Date Provider Facility CPT-66787 Level 3 Est. Patient 16:46:51 CDT Thomas reynolds DO [facility] CPT-00568 [id number] Vst-Est Level III 14:40:49 CDT Paul Hamlin MD [facility] CPT-91930 Level 4 Est. Patient 11:08:43 CDT Checo Conklin MD [facility] CPT-21305 [id number] Vst-Est Level III 09:37:41 CDT Dangelo Rangel MD [facility] CPT-78694 Level 4 Est. Patient 08:57:51 [employer] Checo Conklin MD [facility] CPT-60779 Level 3 Est. Patient 11:24:55 [employer] Efren almendarez [facility] CPT-21695 Level 3 Est. Patient 13:05:44 CDT Paul Hamlin MD [facility] CPT-92069 Level 3 Est. Patient 11:29:55 CDT Checo Conklin MD [facility] CPT-88902 Level 4 Est. Patient 11:08:12 [employer] Checo Conklin MD [facility] CPT-92571 Level 4 Est. Patient 16:06:48 [employer] Checo Conklin MD [facility] CPT-87562 Level 3 Est. Patient 09:11:49 CDT Efren almendarez [facility] CPT-34345 Level 2 Est. Patient 19:53:27 CDT Tanner hill MD [facility]-62710 Level 3 Est. Patient 09:15:34 CDT Efren almendarez [facility]-82247 Level 3 Est. Patient 11:28:51 [employer] Efren almendarez [facility] CPT-28903 Level 4 Est. Patient 13:55:46 [employer] Checo Conklin MD [facility] CPT-10442 Level 4 Est. Patient 17:10:53 CDT Checo Conklin MD [facility] CPT-00566 Level 3 Est. Patient 15:56:22 CDT Checo Conklin MD [facility] CPT-55833 Level 3 Est. Patient 15:29:07 CDT Checo Conklin MD [facility] CPT-08999 Level 3 Est. Patient 14:38:41 CDT Checo Conklin MD [facility] CPT-80128 Level 3 Est. Patient 15:22:03 [employer] Thomas reynolds DO [facility] CPT-66331 Level 3 Est. Patient 13:34:17 [employer] Checo Conklin MD [facility] CPT-06920 Level 3 Est. Patient 12:29:32 CDT Dangelo arroyo MD [facility] CPT-31236 Level 3 Est. Patient 16:53:02 CDT Checo Conklin MD [facility] CPT-71064 Level 3 Est. Patient 16:37:13 CDT Checo Conklin MD [facility] CPT-06968 Level 3 Est. Patient 16:16:59 CDT Paul Hamlin MD [facility] CPT-66240 Level 3 Est. Patient 14:20:13 CDT Dangelo arroyo MD [facility] CPT-64211 Level 4 Est. Patient 11:29:33 CDT Checo Conklin MD [facility] CPT-50094 Level 3 Est. Patient 17:08:31 CDT Checo Conklin MD [facility] CPT-31767 Level 3 Est. Patient 16:50:42 [employer] Checo Conklin MD [facility] CPT-02833 Level 4 Est. Patient 09:26:08 [employer] Checo Conklin MD [facility] CPT-55560 Level 3 Est. Patient 11:37:10 CDT Checo Conklin MD [facility] CPT-34144 Level 4 Est. Patient 14:07:38 CDT Checo Conklin MD [facility] CPT-15357 Level 3 Est. Patient 09:54:41 CDT Checo Conklin MD [facility] CPT-50943 Level 3 Est. Patient 11:10:54 CDT Paul Hamlin MD [facility] CPT-01375 Level 3 Est. Patient 14:16:56 [employer] Checo Conklin MD [facility] CPT-84084 Level 3 Est. Patient 11:04:11 [employer] Checo Conklin MD [facility] CPT-00455 Level 3 Est. Patient 17:09:26 CDT Dangelo arroyo MD [facility] CPT-33291 Level 3 Est. Patient 16:54:37 CDT Checo Conklin MD [facility] Procedures Code Procedure Name Date Entry Date Standard Desc ription CPT-J2550 Phenergan 25 mg (Promethazine) 16:48:23 CDT CPT-J1885 Toradol 60 mg 16:48:23 CDT CPT-15341 Wrist, right, comp 3V - XRAY USE ONLY 09:24:31 CDT CPT-27976 Abd compl w upright - XRAY USE ONLY 1 1:36:54 [employer] CPT-56043 UA w micro - LAB USE ONLY 17:06:46 CDT 2015 CPT-85480 [facility]CG Qual - LAB USE ONLY 17:06:46 CDT 05/06 CPT-35861 CMP - LAB USE ONLY 17:06:46 CDT CPT-40562 CBC with Diff - LAB USE ONLY 17:06:45 CDT 2 CPT-95516 Venipuncture Draw Fee 17:06:45 CDT CPT-LR Lesion Removal 19:53:27 CDT CPT-OV Office Visit 11:31:28 CDT CPT-57450 Tubersol 09:39:29 CDT CPT-J2550 Phenergan 25 mg (Promethazine) 13:59:02 [employer] CPT-J1885 Toradol 60 mg (Ketorolac) 13:59:02 [employer] 2012
--- OUTSIDE RECORDS SUMMARY | 2019-09-29 01:49 | XMS REPORT | Clinical Summary ---
Author Author Admin, Bethany Gonzales Organization [employer] Address Unknown Phone Unavailable Allergies, Adverse Reactions, [...] in breast Breast mass, right 611.72 Resolved Cehco richey MD Lump or mass in breast [...] Hamlin MD Body Mass Index 27.0-27.9, adult FH BREAST CANCER ICD-V16.3 Inactive Checo Joshua FH DIABETES ICD-V18.0 Inactive Checo Conklin MD 201 08/27/26 CONCUSSION ICD-850.9 Inactive Checo Joshua UTI ICD-599.0 Inactive Checo Conklin MD 2013 ABDOMINAL PAIN RIGHT LOWER QUADRANT ICD-789.03 Inactive Checo Conklin MD HEADACHE, TENSION ICD-307.81 Inactive Checo Conklin MD PHARYNGITIS ICD-462 Inactive Checo Conklin MD Onychomycosis, toenails ICD-110.1 [...] Instructions Start Date Stop Date Generic Name [facility] Status Provider Patient Instruction KLOR-CON 10 10 MEQ ORAL TABLET EXTENDED RELEASE 1 daily with furosemide POTASSIUM CHLORIDE [id number] Active Paul Hamlin MD Active FUROSEMIDE 20 MG ORAL TABLET 1 daily for swelling FUROSEMIDE 76518969935 Active Paul Hamlin MD Active HYDROCHLOROTHIAZIDE 12.5 MG ORAL CAPSULE 1 po qd PRN Edema 01/10 HYDROCHLOROTHIAZIDE 65275476195 No Longer Active Paul Hamlin MD Active IBUPROFEN 800 MG ORAL TABLET 1 tab every 8 hours as needed for p ain IBUPROFEN 88839490628 No Longer Active Paul Hamlin MD Active PAROXETINE HCL 40 MG ORAL TABLET 1 po qd PAR OXETINE HCL 13860515093 Active Checo Conklin MD Active MIRALAX ORAL POWDER 8.5 to 17g po qd PRN Constipation POLYETHYLENE GLYCOL 3350 12966733691 No Longer Active Checo Conklin MD Active PROTONIX 40 MG ORAL TABLET DELAYED RELEASE 1 pill by m outh daily, for acid reflux PANTOPRAZOLE SODIUM 47176282441 No Longer Activ e Corry Méndez LPN Active FLAGYL 500 MG ORAL TABLET 1 tablet by mouth bid 08/29 METRONIDAZOLE 35368843210 No Longer Active Corry Méndez LPN Active CLARITHROMYCIN 500 MG ORAL TABLET 1 tab po BID x 14 days CLARITHROMYCIN 37237133244 No Longer Active Corry Méndez LPN Active AMOXICILLIN 500 MG ORAL CAPSULE 2 po BID x 14 days for H. Pylori AMOXICILLIN 11980718607 No Longer Active Corry Whittley, INTELLIGENCE SPECIALIST Active FLUTICASONE PROPIONATE 50 MCG/ACT NASAL SUSPENSION 2 s prays/nostril qd PRN Congestion/Allergies FLUTICASONE PROPIONATE 4257585075 9 No Longer Active Checo Conklin MD Active AMOXICILLIN 500 MG ORAL CAPSULE 2 po BID x 10 days 201 01/15/27 AMOXICILLIN 56304591392 No Longer Active Checo Conklin MD Activ e CLARITIN 10 MG ORAL TABLET 1 tablet by mouth daily as needed for allergies LORATADINE 55972839371 No Longer Active Checo Ortiz MD Active BACTRIM DS 800-160 MG ORAL TABLET 1 tab by mouth twice daily 201 12/19/26 TRIMETHOPRIM-SULFAMETHOXAZOLE 93732878499 No Longer Active Ragini Carrillo MD Active DIFLUCAN 150 MG ORAL TABLET 1 tablet by mouth qod 2015 FLUCONAZOLE 61750565994 No Longer Active Efren Medel CRAS Act mike AZITHROMYCIN 250 MG ORAL TABLET 2 po qd x 1 day, then 1 po q d x 4 days AZITHROMYCIN 91281113301 No Longer Active Efren flores CRAS Active FLAGYL 500 MG ORAL TABLET 1 tablet by mouth bid 04/13 METRONIDAZOLE 44274465592 No Longer Active Checo Conklin MD Acti ve FOCALIN XR 10 MG ORAL CAPSULE EXTENDED RELEASE 24 HOUR 1 po q a.m. DEXMETHYLPHENIDATE HCL 80225930855 Active Checo Conklin MD Active MAGNESIUM CITRATE 1.745 GM/30ML ORAL SOLUTION 150ml po BID P RN Constipation MAGNESIUM CITRATE 03531624745 No Longer Active Checo Conklin MD Active BACTROBAN 2 % EXTERNAL CREAM Apply to affected area BID for up to 10 days MUPIROCIN CALCIUM 65656900878 No Longer Active Checo Conklin MD Active HYDROCODONE-ACETAMINOPHEN 5-325 MG ORAL TABLET 1 tab b y mouth every 6 hours as needed HYDROCODONE-ACETAMINOPHEN 04272745804 No Longer Active Checo Conklin MD Active IBUPROFEN 800 MG ORAL TABLET 1 tab every 8 hours with food 03/20 IBUPROFEN 00387412044 No Longer Active Checo Conklin MD Active DIFLUCAN 150 MG ORAL TABLET 1 tablet by mouth if neede d, hold until symptoms start FLUCONAZOLE 59116276977 No Longer Active Checo Conklin MD Active BACTRIM DS 800-160 MG ORAL TABLET 1 tab by mouth twice daily 201 11/23/03 TRIMETHOPRIM-SULFAMETHOXAZOLE 20471251646 No Longer Active Bonnie Méndez LPN Active HYDROCODONE-ACETAMINOPHEN 5-325 MG ORAL TABLET 0.5 to 1 tab by mouth every 6 hours as needed HYDROCODONE-ACETAMINOPHEN 13161755077 No Longer Active Checo Conklin MD Active ONDANSETRON 8 MG ORAL TABLET DISINTEGRATING place one tablet on tongue and allow to dissolve every 6 hours as needed for vomitting ONDANSETRON 50572114700 No Longer Active Checo Conklin MD Activ e COMPRO 25 MG RECTAL SUPPOSITORY insert or apply one garza ppository rectally as directed every 12 hours as needed for nausea PROCHLORPERAZINE 21415261076 No Longer Active Checo Conklin MD A ctive SUMATRIPTAN SUCCINATE 100 MG ORAL TABLET Take one PRN for migran e SUMATRIPTAN SUCCINATE 76352572870 No Longer Active Checo Conklin MD Active TRAVEL SICKNESS 25 MG ORAL TABLET CHEWABLE chew and sw allow one tablet every 6 hours as needed MECLIZINE HCL 05993254298 No Longer A ctive Checo Conklin MD Active BUPROPION HCL ER (SR) 100 MG ORAL TABLET EXTENDED RELE ASE 12 HOUR take one tablet by mouth one time daily for one week then take 1 two times daily BUPROPION HCL 20769842484 No Longer Active Checo gallagher MD Active TERBINAFINE HCL 250 MG ORAL TABLET take one table PO one time da moises TERBINAFINE HCL 07576499327 No Longer Active Checo Conklin MD Active METOCLOPRAMIDE HCL 10 MG ORAL TABLET take one PO tid PRN nausea METOCLOPRAMIDE HCL 44913125666 No Longer Active Checo Conklin MD Active DICLOFENAC SODIUM 75 MG ORAL TABLET DELAYED RELEASE 1 tablet by mouth twice daily PRN Knee pain DICLOFENAC SODIUM 45828241618 No Longer Active Checo Conklin MD Active LAMISIL 250 MG ORAL TABLET 1 po qd TERBINAFI NE HCL 11613690199 No Longer Active Checo Conklin MD Active REGLAN 10 MG ORAL TABLET 1 po TID PRN Nausea 3 METOCLOPRAMIDE HCL 08219956487 No Longer Active Checo Conklin MD Active CELEXA 20 MG ORAL TABLET 1 tablet by mouth daily 09/26 CITALOPRAM HYDROBROMIDE 67831914873 No Longer Active Checo Conklin MD Active AZITHROMYCIN 250 MG ORAL TABLET 2 po qd x 1 day, then 1 po q d x 4 days AZITHROMYCIN 31368562406 No Longer Active Checo Ortiz MD Active HYDROCODONE-ACETAMINOPHEN 5-325 MG ORAL TABLET 1 po q 6hr PRN Pa in HYDROCODONE-ACETAMINOPHEN 32478666880 No Longer Active Lenora Conklin MD Active PHENAZOPYRIDINE HCL 200 MG ORAL TABLET take 1 tab po TID for bladder pain PHENAZOPYRIDINE HCL 37648844076 No Longer Active Joe Conklin MD Active CIPRO 500 MG ORAL TABLET 1 tablet by mouth twice daily CIPROFLOXACIN HCL 42784250657 No Longer Active Dangelo Rangel MD Active HYDROCODONE-ACETAMINOPHEN 5-325 MG ORAL TABLET 1/2 to 1 po q 4 hours prn cough HYDROCODONE-ACETAMINOPHEN 52802752045 No Longer Activ e Dangelo Rangel MD Active BACTRIM DS 800-160 MG ORAL TABLET 1 po BID x 7 days 29/04/10 SULFAMETHOXAZOLE-TRIMETHOPRIM 39876569927 No Longer Active Checo Conklin MD Active PREDNISONE 20 MG ORAL TABLET 2 tabs daily for 3 days, 1 tab daily for 3 days, 1/2 tab daily for 2 days PREDNISONE 27322106065 No Longer Active Checo Conklin MD Active TRIAMCINOLONE ACETONIDE 0.1 % EXTERNAL OINTMENT Apply to affected areas TID for up to 2 weeks TRIAMCINOLONE ACETONIDE 07486785303 No Longer Active Checo Conklin MD Active CEFDINIR 300 MG ORAL CAPSULE by mouth twice a day 2013 CEFDINIR 83800615338 No Longer Active Dangelo Rangel MD Acti ve BUPROPION HCL ER (SMOKING DET) 150 MG ORAL TABLET EXTE NDED RELEASE 12 HOUR 1 a day for 1 week then 1 twice a day BUPROPION HCL (SMOKING DETER) 49482680941 No Longer Active Checo Conklin MD Active SIMVASTATIN 20 MG ORAL TABLET 1 po qd SIMVASTAT IN 59230918387 Active Checo Conklin MD Active CHANTIX STARTING MONTH KARTHIK 0.5 MG X 11 & 1 MG X 42 ORA L TABLET 0.5mg daily for 3 days, then 0.5mg BID for 4 days, then 1mg BID VARENICLINE TARTRATE 67486553517 No Longer Active Checo Conklin MD Activ e XANAX 0.5 MG ORAL TABLET 1 po BID PRN anxiety A LPRAZOLAM 84985888199 Active Thomas Marks DO Active CONCERTA 18 MG ORAL TABLET EXTENDED RELEASE 1 po q a.m. METHYLPHENIDATE HCL 85652853101 No Longer Active Checo Conklin MD Active AMBIEN 5 MG ORAL TABLET 1 po qHS PRN Insomnia Z OLPIDEM TARTRATE 75570341457 Active Thomas Marks DO Active TRAZODONE HCL 100 MG ORAL TABLET 0.5 to 1 po qHS PRN Insomnia 20 30/07/08 TRAZODONE HCL 70878292220 No Longer Active Checo Conklin MD Active FIORICET 325-50-40 MG TAB 1 tablet by mouth four times daily as needed [id number] 34086932461 No Longer Active Checo Conklin MD Active PHENERGAN CREAM* 25mg applied to wrist q6hr PRN Nausea PHENERGAN CREAM* No Longer Active Checo Conklin MD A ctive FLONASE 50 MCG/ACT NASAL SUSPENSION 1 spray each nostril am and hs FLUTICASONE PROPIONATE 47240786204 No Longer Active Checo Conklin MD Active ANTIPYRINE-BENZOCAINE 5.4-1.4 % OTIC SOLUTION 1-2 drops in affec yohannes ear BENZOCAINE-ANTIPYRINE 57229658153 No Longer Active Checo Conklin MD Active CEFDINIR 300 MG ORAL CAPSULE 1 po bid CEFDINIR 09263873339 No Longer Active Checo Conklin MD Active PREDNISONE 20 MG ORAL TABLET 2 tabs daily for 3 days, 1 tab daily for 3 days, 1/2 tab daily for 2 days PREDNISONE 64391018598 No Longer Active Checo Conklin MD Active AZITHROMYCIN 250 MG ORAL TABLET 2 po qd x 1 day, then 1 po q d x 4 days AZITHROMYCIN 97337839426 No Longer Active Checo Ortiz MD Active PREDNISONE 20 MG ORAL TABLET 2 tabs daily for 3 days, 1 tab daily for 3 days, 1/2 tab daily for 2 days PREDNISONE 66800529878 No Longer Active Checo Conklin MD Active ZITHROMAX Z-KARTHIK 250 MG ORAL TABLET 2 today, then 1 daily for 4 d ays AZITHROMYCIN 92119012200 No Longer Active Paul Hamlin MD Active FOCALIN XR 10 MG ORAL CAPSULE EXTENDED RELEASE 24 HOUR 1 po q a. m. DEXMETHYLPHENIDATE HCL 63464761874 No Longer Active Paul Hamlin MD Active PERCOCET 10-325 MG ORAL TABLET 1 tablet every 6 hours as needed for pain OXYCODONE-ACETAMINOPHEN 04052072691 No Longer Active Paul Hamlin MD Active LORTAB 5-500 MG ORAL TABLET 1/2 to 1 tablet by mouth e very 4 hours as needed for pain HYDROCODONE-ACETAMINOPHEN 04416990386 No Longer Active Checo Conklin MD Active FOCALIN XR 15 MG ORAL CAPSULE EXTENDED RELEASE 24 HOUR 1 po q a. m. DEXMETHYLPHENIDATE HCL 57728318605 No Longer Active Checo Conklin MD Active ZOFRAN ODT 4 MG ORAL TABLET DISINTEGRATING 1 po q6hr PRN Nausea ONDANSETRON 72366469309 No Longer Active Checo Conklin MD Active PERCOCET 5-325 MG ORAL TABLET 1 tablet by mouth every 6 hour s as needed OXYCODONE-ACETAMINOPHEN 77457044295 No Longer Active Checo Conklin MD Active PYRIDIUM 200 MG ORAL TABLET take 1 tab po TID prn urinary pain. PHENAZOPYRIDINE HCL 16227035531 No Longer Active Checo Joshua Active FLUCONAZOLE 150 MG ORAL TABLET take 1 tab po qday once FLUCONAZOLE 21913245773 No Longer Active Dangelo Rangel MD Acti ve CIPRO 500 MG ORAL TABLET 1 tablet by mouth twice daily CIPROFLOXACIN HCL 10490537950 No Longer Active Dangelo Rangel MD Active PYRIDIUM 200 MG ORAL TABLET take 1 tab po TID prn urinary pain. PYRIDIUM 200 MG ORAL TABLET 0374149 PHENAZOPYRIDINE HCL Inactive PERCOCET 5-325 MG ORAL TABLET 1 tablet by mouth every 6 hour s as needed PERCOCET 5-325 MG ORAL TABLET 2802203 OXYCODONE-ACETAMINOPHEN Inactive ZOFRAN ODT 4 MG ORAL TABLET DISINTEGRATING 1 po q6hr PRN Nausea ZOFRAN ODT 4 MG ORAL TABLET DISINTEGRATING 412298 ONDAN SETRON Inactive FOCALIN XR 15 MG [...] for pain PERCOCET 10-325 MG ORAL TABLET 5273234 OXYCODONE-ACETAMI NOPHEN Inactive FOCALIN XR 10 MG ORAL CAPSULE EXTENDED RELEASE 24 HOUR 1 po q a. m. FOCALIN XR 10 MG ORAL CAPSULE EXTENDED RELEASE 24 HOUR DEXMETHYLPHENIDATE HCL Inactive CEFDINIR 300 MG ORAL CAPSULE 1 po bid CEFDINI R 300 MG ORAL CAPSULE 751926 CEFDINIR Inactive ANTIPYRINE-BENZOCAINE 5.4-1.4 % OTIC SOLUTION 1-2 drops in affec yohannes ear ANTIPYRINE-BENZOCAINE 5.4-1.4 % OTIC SOLUTION BENZOCAINE-ANTIPYRINE Inactive FLONASE 50 MCG/ACT NASAL SUSPENSION 1 spray each nostril am and hs FLONASE 50 MCG/ACT NASAL SUSPENSION 0025642 FLUTICASONE PROPIONATE I nactive PHENERGAN CREAM* 25mg applied to wrist q6hr PRN Nausea PHENERGAN CREAM* Inactive FIORICET 325-50-40 MG TAB 1 tablet by mouth four times daily as needed FIORICET 325-50-40 MG TAB ACETAMINOPHEN-C AFF-BUTALBITAL Inactive TRAZODONE HCL 100 MG ORAL TABLET 0.5 to 1 po qHS PRN Insomnia 20 30/07/08 TRAZODONE HCL 100 MG ORAL TABLET 488889 TRAZODONE HCL Inactive CONCERTA 18 MG ORAL [...] cough HYDROCODONE-ACETAMINOPHEN 5-325 MG ORAL TABLET 8 37404 HYDROCODONE-ACETAMINOPHEN Inactive PHENAZOPYRIDINE HCL 200 MG ORAL TABLET take 1 tab po TID for bladder pain PHENAZOPYRIDINE HCL 200 MG ORAL TABLET 7821928 PHENAZOPYRIDINE HCL Inactive HYDROCODONE-ACETAMINOPHEN 5-325 MG ORAL TABLET 1 po q 6hr PRN Pa in HYDROCODONE-ACETAMINOPHEN 5-325 MG ORAL TABLET 869293 HYDROCODONE-ACETAMINOPHEN Inactive CELEXA 20 MG ORAL TABLET 1 tablet by mouth daily 09/26 CELEXA 20 MG ORAL TABLET 654422 CITALOPRAM HYDROBROMIDE Inactive REGLAN 10 MG ORAL TABLET 1 po TID PRN Nausea 3 REGLAN 10 MG ORAL TABLET 004486 METOCLOPRAMIDE HCL Inactive LAMISIL 250 MG ORAL TABLET 1 po qd L AMISIL 250 MG ORAL TABLET 831701 TERBINAFINE HCL Inactive DICLOFENAC SODIUM 75 MG ORAL TABLET DELAYED RELEASE 1 tablet by mouth twice daily PRN Knee pain DICLOFENAC SODIUM 75 MG ORAL TABLET DELAYED RELEASE 459433 DICLOFENAC SODIUM Inactive METOCLOPRAMIDE HCL 10 MG ORAL TABLET take one PO tid PRN nausea METOCLOPRAMIDE HCL 10 MG ORAL TABLET 826327 METOCLOPRAM ZACH HCL Inactive TERBINAFINE HCL 250 MG ORAL TABLET take one table PO one time da moises TERBINAFINE HCL 250 MG ORAL TABLET 781492 TERBINAFINE H CL Inactive BUPROPION HCL ER [...] SICKNESS 25 M G ORAL TABLET CHEWABLE 341583 MECLIZINE HCL Inactive SUMATRIPTAN SUCCINATE 100 MG ORAL TABLET Take one PRN for migran e SUMATRIPTAN SUCCINATE 100 MG ORAL TABLET 047603 SUMATRIPTAN SUCCINATE Inactive COMPRO 25 MG RECTAL SUPPOSITORY insert or apply one garza ppository rectally as directed every 12 hours as needed for nausea COMPRO 25 MG RECTAL SUPPOSITORY 994341 PROCHLORPERAZINE Inactive ONDANSETRON 8 MG ORAL TABLET DISINTEGRATING place one tablet on tongue and allow to dissolve every 6 hours as needed for vomitting ONDANSETRON 8 MG ORAL TABLET DISINTEGRATING 449299 ONDANSETRON Inactive HYDROCODONE-ACETAMINOPHEN 5-325 MG ORAL TABLET 0.5 to 1 tab by mouth every 6 hours as needed HYDROCODONE-ACETAMIN OPHEN 5-325 MG ORAL TABLET 323148 HYDROCODONE-ACETAMINOPHEN Inactive BACTRIM DS 800-160 MG ORAL TABLET 1 tab by mouth twice daily 201 11/23/03 BACTRIM DS 800-160 MG ORAL TABLET 991013 TRIMETHOPRIM-SULFAMETHOXAZOLE Inactive DIFLUCAN 150 MG ORAL TABLET 1 tablet by mouth if neede d, hold until symptoms start DIFLUCAN 150 MG ORAL TABLET 19760325 FLUCONAZ OLE Inactive IBUPROFEN 800 MG ORAL TABLET 1 tab every 8 hours with food 03/20 IBUPROFEN 800 MG ORAL TABLET 370056 IBUPROFEN Krupa ctive HYDROCODONE-ACETAMINOPHEN 5-325 MG ORAL TABLET 1 tab b y mouth every 6 hours as needed HYDROCODONE-ACETAMINOPHEN 5-325 MG ORAL TABLET 298058 HYDROCODONE-ACETAMINOPHEN Inactive BACTROBAN 2 % EXTERNAL CREAM Apply to affected area BID for up to 10 days BACTROBAN 2 % EXTERNAL CREAM 122974 MUPIROCIN CA LCIUM Inactive MAGNESIUM CITRATE 1.745 GM/30ML ORAL SOLUTION 150ml po BID P RN Constipation MAGNESIUM CITRATE 1.745 GM/30ML ORAL SOLUTION 10 84513 MAGNESIUM CITRATE Inactive DIFLUCAN 150 MG ORAL TABLET 1 tablet by mouth qod 2015 DIFLUCAN 150 MG ORAL TABLET 604213 FLUCONAZOLE Inactive BACTRIM DS 800-160 MG ORAL TABLET 1 tab by mouth twice daily 201 12/19/26 BACTRIM DS 800-160 MG ORAL TABLET 044496 TRIMETHOPRIM-SULFAMETHOXAZOLE Inactive CLARITIN 10 MG ORAL TABLET 1 tablet by mouth daily as needed for allergies CLARITIN 10 MG ORAL TABLET 224567 LORATADINE I nactive FLUTICASONE PROPIONATE 50 MCG/ACT NASAL SUSPENSION 2 s prays/nostril qd PRN Congestion/Allergies FLUTICASONE PROPION ATE 50 MCG/ACT NASAL SUSPENSION 2989725 FLUTICASONE PROPIONATE Inactive MIRALAX ORAL POWDER 8.5 to 17g po qd PRN Constipation MIRALAX ORAL POWDER 526332 POLYETHYLENE GLYCOL 3350 Inactive IBUPROFEN 800 MG ORAL TABLET 1 tab every 8 hours as needed for p ain IBUPROFEN 800 MG ORAL TABLET 502176 IBUPROFEN [place] ctive HYDROCHLOROTHIAZIDE 12.5 MG ORAL CAPSULE 1 po qd PRN Edema 01/10 HYDROCHLOROTHIAZIDE 12.5 MG ORAL CAPSULE 970233 HYDROCH LOROTHIAZIDE Inactive CIPRO 500 MG ORAL TABLET 1 tablet by mouth twice daily CIPRO 500 MG ORAL TABLET 053082 CIPROFLOXACIN HCL Inactive FLUCONAZOLE 150 MG ORAL TABLET take 1 tab po qday once FLUCONAZOLE 150 MG ORAL TABLET 965141 FLUCONAZOLE Inactive ZITHROMAX Z-KARTHIK 250 MG ORAL TABLET 2 today, then 1 daily for 4 d ays ZITHROMAX Z-KARTHIK 250 MG ORAL TABLET 911623 AZITHROMYCIN Inactive PREDNISONE 20 MG ORAL TABLET 2 tabs daily for 3 days, 1 tab daily for 3 days, 1/2 tab daily for 2 days PREDNISONE 20 MG ORAL T ABLET 071426 PREDNISONE Inactive AZITHROMYCIN 250 MG ORAL TABLET 2 po qd x 1 day, then 1 po q d x 4 days AZITHROMYCIN 250 MG ORAL TABLET 927688 AZITHROMY SPARKLE Inactive PREDNISONE 20 MG ORAL TABLET 2 tabs daily for 3 days, 1 tab daily for 3 days, 1/2 tab daily for 2 days PREDNISONE 20 MG ORAL TABLET 726930 PREDNISONE Inactive CEFDINIR 300 MG ORAL CAPSULE by mouth twice a day 2013 CEFDINIR 300 MG ORAL CAPSULE 730613 CEFDINIR Inactive TRIAMCINOLONE ACETONIDE 0.1 % EXTERNAL OINTMENT Apply to affected areas TID for up to 2 weeks TRIAMCINOLONE ACETON ZACH 0.1 % EXTERNAL OINTMENT 0472133 TRIAMCINOLONE ACETONIDE Inactive PREDNISONE 20 MG ORAL TABLET 2 tabs daily for 3 days, 1 tab daily for 3 days, 1/2 tab daily for 2 days PREDNISONE 20 MG ORAL T ABLET 842131 PREDNISONE Inactive BACTRIM DS 800-160 MG ORAL TABLET 1 po BID x 7 days 29/04/10 BACTRIM DS 800-160 MG ORAL TABLET 702791 SULFAMETHOXAZOLE-TRIMETHOP RIM Inactive CIPRO 500 MG ORAL TABLET 1 tablet by mouth twice daily CIPRO 500 MG ORAL TABLET 499805 CIPROFLOXACIN HCL Inactive AZITHROMYCIN 250 MG ORAL TABLET 2 po qd x 1 day, then 1 po q d x 4 days AZITHROMYCIN 250 MG ORAL TABLET 947569 AZITHROMY SPARKLE Inactive FLAGYL 500 MG ORAL TABLET 1 tablet by mouth bid 04/13 FLAGYL 500 MG ORAL TABLET 099270 METRONIDAZOLE Inactive AZITHROMYCIN 250 MG ORAL TABLET 2 po qd x 1 day, then 1 po q d x 4 days AZITHROMYCIN 250 MG ORAL TABLET 776213 AZITHROMY SPARKLE Inactive AMOXICILLIN 500 MG ORAL CAPSULE 2 po BID x 10 days 201 01/15/27 AMOXICILLIN 500 MG ORAL CAPSULE 456701 AMOXICILLIN Inactive AMOXICILLIN 500 MG ORAL CAPSULE 2 po BID x 14 days for H. Pylori AMOXICILLIN 500 MG ORAL CAPSULE 388639 AMOXICILLIN Inactive CLARITHROMYCIN 500 MG ORAL TABLET 1 tab po BID x 14 days CLARITHROMYCIN 500 MG ORAL TABLET 943309 CLARITHROMYCIN Inacti ve FLAGYL 500 MG ORAL TABLET 1 tablet by mouth bid 08/29 FLAGYL 500 MG ORAL TABLET 662855 METRONIDAZOLE Inactive PROTONIX 40 MG ORAL TABLET DELAYED RELEASE 1 pill by m outh daily, for acid reflux PROTONIX 40 MG ORAL TABLET DELAYED RELEAS E 195062 PANTOPRAZOLE SODIUM Inactive Immunizations Vaccine Administration Date [...] d blood pressure, diastolic 81 mm[Hg] BP mahtew blood pressure, systolic 125 mm[Hg] BP sys [...] 11 .6-14.8 platelet count 215 10^3/MM^3 10*3/mm3 245-494 5218/11/28 erythrocyte (RBC) count 4.17 10^6/MM^3 10*6/mm3 3.80-5.8 0 lymphocytes as percent of blood leukocytes 23.9 % 20.5-51.1 monocytes as percent of blood leukocytes 7.3 % 1.7-9.3 neutrophils as percent of blood leukocytes 66.5 % 42.2-75.2 leukocyte count, blood 7.6 10^3/MM^3 10*3/mm3 4.6-10.2 Lab Report: Comp. Metabolic Panel, B-Typ e Natriuretic Peptide, Free Thyr ... - Chemistry sodium, serum 138 mmol/L 105-464 9712/06/27 carbon dioxide, venous blood 30.3 mmol/L 21.0-32 [...] mg/dL Negative RBC, urine, dipstick 1+ Negative blood glucose 76 mg/dL 65-110 urea nitrogen, blood 13 mg/dL 7-18 creatinine, serum 0.62 mg/dL 0.60-1.30 alanine aminotransferase (SGPT), serum 37 U/L 12-78 aspartate aminotransferase (SGOT), serum 25 U/L 15-37 calcium, serum 8.3 mg/dL 8.5-10.1 bilirubin, serum, total 0.60 mg/dL 0.00-1.00 sodium, serum 139 mmol/L 734-127 8423/11/28 carbon dioxide, venous blood 26.0 mmol/L 21.0-32 .0 potassium, serum 3.9 mmol/L 3.5-5.2 chloride, serum 104 mmol/L 98-107 Lab Report: Comp. Metabolic Panel, Eryth rocyte [...] 5.0-8.5 Encounters Code Encounter Date Provider Facility CPT-53181 [id number] Vst-Est Level III 14:40:49 CDT Paul Hamlin MD [facility] CPT-10547 Level 4 Est. Patient 11:08:43 CDT Checo Conklin MD [facility] CPT-11899 [id number] Vst-Est Level III 09:37:41 CDT Dangelo Rangel MD [facility] CPT-95330 Level 4 Est. 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 Patient 13:05:44 CDT Paul Hamlin MD [facility] CPT-81186 Level 3 Est. Patient 11:29:55 CDT Checo Conklin MD [facility] CPT-31874 Level 4 Est. 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 Patient 09:11:49 CDT Efren almendarez [facility] CPT-48322 Level 2 Est. Patient 19:53:27 CDT Tanner hill MD [facility] CPT-10239 Level 3 Est. Patient 09:15:34 CDT Efren almendarez [facility] CPT-18563 Level 3 Est. 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 Patient 17:10:53 CDT Checo Conklin MD [facility] CPT-07459 Level 3 Est. Patient 15:56:22 CDT Checo Conklin MD [facility] CPT-43807 Level 3 Est. Patient 15:29:07 CDT Checo Conklin MD [facility] CPT-41888 Level 3 Est. Patient 14:38:41 CDT Checo Conklin MD [facility] CPT-12517 Level 3 Est. 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 Patient 12:29:32 CDT Dangelo arroyo MD [facility] CPT-37371 Level 3 Est. Patient 16:53:02 CDT Checo Conklin MD [facility] CPT-96814 Level 3 Est. Patient 16:37:13 CDT Checo Conklin MD [facility] CPT-72133 Level 3 Est. Patient 16:16:59 CDT Paul Hamlin MD [facility] CPT-93724 Level 3 Est. Patient 14:20:13 CDT Dangelo arroyo MD [facility] CPT-67786 Level 4 Est. Patient 11:29:33 CDT Checo Conklin MD [facility] CPT-95766 Level 3 Est. Patient 17:08:31 CDT Checo Conklin MD [facility] CPT-57808 Level 3 Est. 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 Patient 11:37:10 CDT Checo Conklin MD [facility] CPT-58212 Level 4 Est. Patient 14:07:38 CDT Checo Conklin MD [facility] CPT-75016 Level 3 Est. Patient 09:54:41 CDT Checo Conklin MD [facility] CPT-35366 Level 3 Est. Patient 11:10:54 CDT Paul Hamlin MD [facility] CPT-21147 Level 3 Est. 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 Patient 17:09:26 CDT Dangelo arroyo MD [place] [facility] CPT-89003 Level 3 Est. 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
--- OUTSIDE RECORDS SUMMARY | 2019-09-29 01:50 | XMS REPORT | Clinical Summary ---
Author Author Admin, Bethany Ayala [employer] [facility] Address Unknown Phone Unavailable Allergies, [...] MD Body Mass Index 27.0-27.9, adult FH DIABETES ICD-V18.0 Inactive Checo Conklin [...] RELEASE 1 daily with furosemide POTASSIUM CHLORIDE 23394428131 Active Paul Hamlin MD Active FUROSEMIDE 20 MG ORAL TABLET 1 daily for swelling FUROSEMIDE 50242405829 Active Paul Hamlin MD Active HYDROCHLOROTHIAZIDE 12.5 MG ORAL CAPSULE 1 po qd PRN Edema 01/10 HYDROCHLOROTHIAZIDE 53297894716 No Longer Active Paul Hamlin MD Active IBUPROFEN 800 MG ORAL TABLET 1 tab every 8 hours as needed for p ain IBUPROFEN 86311335922 No Longer Active Paul Hamlin MD Active PAROXETINE HCL 40 MG ORAL TABLET 1 po qd PAR OXETINE HCL 25824224935 Active Checo Conklin MD Active MIRALAX ORAL POWDER 8.5 to 17g po qd PRN Constipation POLYETHYLENE GLYCOL 3350 76958084509 No Longer Active Checo Conklin MD Active PROTONIX 40 MG ORAL TABLET DELAYED RELEASE 1 pill by m outh daily, for acid reflux PANTOPRAZOLE SODIUM 39654905406 No Longer Activ e Corry Méndez LPN Active FLAGYL 500 MG ORAL TABLET 1 tablet by mouth bid 08/29 METRONIDAZOLE 90879624166 No Longer Active Corry Méndez LPN Active CLARITHROMYCIN 500 MG ORAL TABLET 1 tab po BID x 14 days CLARITHROMYCIN 77311225306 No Longer Active Corry Méndez LPN Active AMOXICILLIN 500 MG ORAL CAPSULE 2 po BID x 14 days for H. Pylori AMOXICILLIN 42821905997 No Longer Active Corry Méndez LPN Active FLUTICASONE PROPIONATE 50 MCG/ACT NASAL SUSPENSION 2 s prays/nostril qd PRN Congestion/Allergies FLUTICASONE PROPIONATE 5575509652 9 No Longer Active Checo Conklin MD Active AMOXICILLIN 500 MG ORAL CAPSULE 2 po BID x 10 days 201 01/15/27 AMOXICILLIN 51226429373 No Longer Active Checo Conklin MD Activ e CLARITIN 10 MG ORAL TABLET 1 tablet by mouth daily as needed for allergies LORATADINE 72991997185 No Longer Active Checo Ortiz MD Active BACTRIM DS 800-160 MG ORAL TABLET 1 tab by mouth twice daily 201 12/19/26 TRIMETHOPRIM-SULFAMETHOXAZOLE 10651632583 No Longer Active Ragini Carrillo MD Active DIFLUCAN 150 MG ORAL TABLET 1 tablet by mouth qod 2015 FLUCONAZOLE 72850387555 No Longer Active 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 DEXMETHYLPHENIDATE HCL 77247872542 Active Checo Conklin MD Active MAGNESIUM CITRATE 1.745 GM/30ML ORAL SOLUTION 150ml po BID P RN Constipation MAGNESIUM CITRATE 52208825765 No Longer Active Checo Conklin MD Active BACTROBAN 2 % EXTERNAL CREAM Apply to affected area BID for up to 10 days MUPIROCIN CALCIUM 57635291824 No Longer Active Checo Conklin MD Active HYDROCODONE-ACETAMINOPHEN 5-325 MG ORAL TABLET 1 tab b y mouth every 6 hours as needed HYDROCODONE-ACETAMINOPHEN 28997414736 No Longer Active Checo Conklin MD Active IBUPROFEN 800 MG ORAL TABLET 1 tab every 8 hours with food 03/20 IBUPROFEN 10025115646 No Longer Active Checo Conklin MD Active DIFLUCAN 150 MG ORAL TABLET 1 tablet by mouth if neede d, hold until symptoms start FLUCONAZOLE 74693352378 No Longer Active Checo Conklin MD Active BACTRIM DS 800-160 MG ORAL TABLET 1 tab by mouth twice daily 201 11/23/03 TRIMETHOPRIM-SULFAMETHOXAZOLE 79583612183 No Longer Active K bernice Méndez LPN Active HYDROCODONE-ACETAMINOPHEN 5-325 MG ORAL TABLET 0.5 to 1 tab by mouth every 6 hours as needed HYDROCODONE-ACETAMINOPHEN 98041995141 No Longer Active Checo Conklin MD Active ONDANSETRON 8 MG ORAL TABLET DISINTEGRATING place one tablet on tongue and allow to dissolve every 6 hours as needed for vomitting ONDANSETRON 45341397681 No Longer Active Checo Conklin MD Activ e COMPRO 25 MG RECTAL SUPPOSITORY insert or apply one garza ppository rectally as directed every 12 hours as needed for nausea PROCHLORPERAZINE 04783247623 No Longer Active Checo Conklin MD A ctive SUMATRIPTAN SUCCINATE 100 MG ORAL TABLET Take one PRN for migran e SUMATRIPTAN SUCCINATE 95625673271 No Longer Active Checo Conklin MD Active TRAVEL SICKNESS 25 MG ORAL TABLET CHEWABLE chew and sw allow one tablet every 6 hours as needed MECLIZINE HCL 00390379354 No Longer A ctive Checo Conklin MD Active BUPROPION HCL ER (SR) 100 MG ORAL TABLET EXTENDED RELE ASE 12 HOUR take one tablet by mouth one time daily for one week then take 1 two times daily BUPROPION HCL 57897230666 No Longer Active Checo gallagher MD Active TERBINAFINE HCL 250 MG ORAL TABLET take one table PO one time da moises TERBINAFINE HCL 66567228936 No Longer Active Checo Conklin MD Active METOCLOPRAMIDE HCL 10 MG ORAL TABLET take one PO tid PRN nausea METOCLOPRAMIDE HCL 44798314659 No Longer Active Checo Conklin MD Active DICLOFENAC SODIUM 75 MG ORAL TABLET DELAYED RELEASE 1 tablet by mouth twice daily PRN Knee pain DICLOFENAC SODIUM 63661881189 No Longer Active Checo Conklin MD Active LAMISIL 250 MG ORAL TABLET 1 po qd TERBINAFI NE HCL 02659146429 No Longer Active Checo Conklin MD Active REGLAN 10 MG ORAL TABLET 1 po TID PRN Nausea 3 METOCLOPRAMIDE HCL 85329238492 No Longer Active Checo Conklin MD Active CELEXA 20 MG ORAL TABLET 1 tablet by mouth daily 09/26 CITALOPRAM HYDROBROMIDE 39764178230 No Longer Active Checo Conklin MD Active AZITHROMYCIN 250 MG ORAL TABLET 2 po qd x 1 day, then 1 po q d x 4 days AZITHROMYCIN 20197502540 No Longer Active Checo Ortiz MD Active HYDROCODONE-ACETAMINOPHEN 5-325 MG ORAL TABLET 1 po q 6hr PRN Pa in HYDROCODONE-ACETAMINOPHEN 46064323013 No Longer Active Lenora Conklin MD Active PHENAZOPYRIDINE HCL 200 MG ORAL TABLET take 1 tab po TID for bladder pain PHENAZOPYRIDINE HCL 80567295319 No Longer Active Joe Conklin MD Active CIPRO 500 MG ORAL TABLET 1 tablet by mouth twice daily CIPROFLOXACIN HCL 41385114237 No Longer Active Dangelo Rangel MD Active HYDROCODONE-ACETAMINOPHEN 5-325 MG ORAL TABLET 1/2 to 1 po q 4 hours prn cough HYDROCODONE-ACETAMINOPHEN 27054775809 No Longer Activ candy Rangel MD Active BACTRIM DS 800-160 MG ORAL TABLET 1 po BID x 7 days 29/04/10 SULFAMETHOXAZOLE-TRIMETHOPRIM 55427799594 No Longer Active Checo Conklin MD Active PREDNISONE 20 MG ORAL TABLET 2 tabs daily for 3 days, 1 tab daily for 3 days, 1/2 tab daily for 2 days PREDNISONE 37272509857 No Longer Active Checo Conklin MD Active TRIAMCINOLONE ACETONIDE 0.1 % EXTERNAL OINTMENT Apply to affected areas TID for up to 2 weeks TRIAMCINOLONE ACETONIDE 61923483682 No Longer Active Checo Conklin MD Active CEFDINIR 300 MG ORAL CAPSULE by mouth twice a day 2013 CEFDINIR 87912148116 No Longer Active Dangelo Rangel MD Acti ve BUPROPION HCL ER (SMOKING DET) 150 MG ORAL TABLET EXTE NDED RELEASE 12 HOUR 1 a day for 1 week then 1 twice a day BUPROPION HCL (SMOKING DETER) 73822896144 No Longer Active Checo Conklin MD Active SIMVASTATIN 20 MG ORAL TABLET 1 po qd SIMVASTAT IN 58365586407 Active Checo Conklin MD Active CHANTIX STARTING MONTH KARTHIK 0.5 MG X 11 & 1 MG X 42 ORA L TABLET 0.5mg daily for 3 days, then 0.5mg BID for 4 days, then 1mg BID VARENICLINE TARTRATE 58391890595 No Longer Active Checo Conklin MD Activ e XANAX 0.5 MG ORAL TABLET 1 po BID PRN anxiety A LPRAZOLAM 09208206703 Active Thomas Marks DO Active CONCERTA 18 MG ORAL TABLET EXTENDED RELEASE 1 po q a.m. METHYLPHENIDATE HCL 30795824529 No Longer Active Checo Conklin MD Active AMBIEN 5 MG ORAL TABLET 1 po qHS PRN Insomnia Z OLPIDEM TARTRATE 66321714393 Active Thomas Marks DO Active TRAZODONE HCL 100 MG ORAL TABLET 0.5 to 1 po qHS PRN Insomnia 20 30/07/08 TRAZODONE HCL 71886750940 No Longer Active Checo Conklin MD Active FIORICET 325-50-40 MG TAB 1 tablet by mouth four times daily as needed [id number] 48101858523 No Longer Active Checo Conklin MD Active PHENERGAN CREAM* 25mg applied to wrist q6hr PRN Nausea PHENERGAN CREAM* No Longer Active Checo Conklin MD A ctive FLONASE 50 MCG/ACT NASAL SUSPENSION 1 spray each nostril am and hs FLUTICASONE PROPIONATE 40733381616 No Longer Active Checo Conklin MD Active ANTIPYRINE-BENZOCAINE 5.4-1.4 % OTIC SOLUTION 1-2 drops in affec yohannes ear BENZOCAINE-ANTIPYRINE 75673861783 No Longer Active Checo Conklin MD Active CEFDINIR 300 MG ORAL CAPSULE 1 po bid CEFDINIR 81972250597 No Longer Active Checo Conklin MD Active PREDNISONE 20 MG ORAL TABLET 2 tabs daily for 3 days, 1 tab daily for 3 days, 1/2 tab daily for 2 days PREDNISONE 09173227841 No Longer Active Checo Conklin MD Active AZITHROMYCIN 250 MG ORAL TABLET 2 po qd x 1 day, then 1 po q d x 4 days AZITHROMYCIN 04901402408 No Longer Active Checo Ortiz MD Active PREDNISONE 20 MG ORAL TABLET 2 tabs daily for 3 days, 1 tab daily for 3 days, 1/2 tab daily for 2 days PREDNISONE 30777798633 No Longer Active Checo Conklin MD Active ZITHROMAX Z-KARTHIK 250 MG ORAL TABLET 2 today, then 1 daily for 4 d ays AZITHROMYCIN 19451603490 No Longer Active Paul Hamlin MD Active FOCALIN XR 10 MG ORAL CAPSULE EXTENDED RELEASE 24 HOUR 1 po q a. m. DEXMETHYLPHENIDATE HCL 74712400741 No Longer Active Paul Hamlin MD Active PERCOCET 10-325 MG ORAL TABLET 1 tablet every 6 hours as needed for pain OXYCODONE-ACETAMINOPHEN 55728001138 No Longer Active Paul Hamlin MD Active LORTAB 5-500 MG ORAL TABLET 1/2 to 1 tablet by mouth e very 4 hours as needed for pain HYDROCODONE-ACETAMINOPHEN 89246421855 No Longer Active Checo Conklin MD Active FOCALIN XR 15 MG ORAL CAPSULE EXTENDED RELEASE 24 HOUR 1 po q a. m. DEXMETHYLPHENIDATE HCL 85606022104 No Longer Active Checo Conklin MD Active ZOFRAN ODT 4 MG ORAL TABLET DISINTEGRATING 1 po q6hr PRN Nausea ONDANSETRON 73511062310 No Longer Active Checo Conklin MD Active PERCOCET 5-325 MG ORAL TABLET 1 tablet by mouth every 6 hour s as needed OXYCODONE-ACETAMINOPHEN 71509341024 No Longer Active Checo Conklin MD Active PYRIDIUM 200 MG ORAL TABLET take 1 tab po TID prn urinary pain. PHENAZOPYRIDINE HCL 68308166870 No Longer Active Checo Joshua Active FLUCONAZOLE 150 MG ORAL TABLET take 1 tab po qday once FLUCONAZOLE 88800709226 No Longer Active Dangelo Rangel MD Acti ve CIPRO 500 MG ORAL TABLET 1 tablet by mouth twice daily CIPROFLOXACIN HCL 04272766710 No Longer Active Dangelo Rangel MD Active PYRIDIUM 200 MG ORAL TABLET take 1 tab po TID prn urinary pain. PYRIDIUM 200 MG ORAL TABLET 5487176 PHENAZOPYRIDINE HCL Inactive PERCOCET 5-325 MG ORAL TABLET 1 tablet by mouth every 6 hour s as needed PERCOCET 5-325 MG ORAL TABLET 4277288 OXYCODONE-ACETAMINOPHEN Inactive ZOFRAN ODT 4 MG ORAL TABLET DISINTEGRATING 1 po q6hr PRN Nausea ZOFRAN ODT 4 MG ORAL TABLET DISINTEGRATING 153274 ONDAN SETRON Inactive FOCALIN XR 15 MG [...] for pain PERCOCET 10-325 MG ORAL TABLET 9730451 OXYCODONE-ACETAMI NOPHEN Inactive FOCALIN XR 10 MG ORAL CAPSULE EXTENDED RELEASE 24 HOUR 1 po q a. m. FOCALIN XR 10 MG ORAL CAPSULE EXTENDED RELEASE 24 HOUR DEXMETHYLPHENIDATE HCL Inactive CEFDINIR 300 MG ORAL CAPSULE 1 po bid CEFDINI R 300 MG ORAL CAPSULE 266274 CEFDINIR Inactive ANTIPYRINE-BENZOCAINE 5.4-1.4 % OTIC SOLUTION 1-2 drops in affec yohannes ear ANTIPYRINE-BENZOCAINE 5.4-1.4 % OTIC SOLUTION BENZOCAINE-ANTIPYRINE Inactive FLONASE 50 MCG/ACT NASAL SUSPENSION 1 spray each nostril am and hs FLONASE 50 MCG/ACT NASAL SUSPENSION 3121304 FLUTICASONE PROPIONATE I nactive PHENERGAN CREAM* 25mg applied to wrist q6hr PRN Nausea PHENERGAN CREAM* Inactive FIORICET 325-50-40 MG TAB 1 tablet by mouth four times daily as needed FIORICET 325-50-40 MG TAB ACETAMINOPHEN-C AFF-BUTALBITAL Inactive TRAZODONE HCL 100 MG ORAL TABLET 0.5 to 1 po qHS PRN Insomnia 20 30/07/08 TRAZODONE HCL 100 MG ORAL TABLET 942172 TRAZODONE HCL Inactive CONCERTA 18 MG ORAL [...] cough HYDROCODONE-ACETAMINOPHEN 5-325 MG ORAL TABLET 8 81494 HYDROCODONE-ACETAMINOPHEN Inactive PHENAZOPYRIDINE HCL 200 MG ORAL TABLET take 1 tab po TID for bladder pain PHENAZOPYRIDINE HCL 200 MG ORAL TABLET 3907665 PHENAZOPYRIDINE HCL Inactive HYDROCODONE-ACETAMINOPHEN 5-325 MG ORAL TABLET 1 po q 6hr PRN Pa in HYDROCODONE-ACETAMINOPHEN 5-325 MG ORAL TABLET 955564 HYDROCODONE-ACETAMINOPHEN Inactive CELEXA 20 MG ORAL TABLET 1 tablet by mouth daily 09/26 CELEXA 20 MG ORAL TABLET 438816 CITALOPRAM HYDROBROMIDE Inactive REGLAN 10 MG ORAL TABLET 1 po TID PRN Nausea 3 REGLAN 10 MG ORAL TABLET 300757 METOCLOPRAMIDE HCL Inactive LAMISIL 250 MG ORAL TABLET 1 po qd L AMISIL 250 MG ORAL TABLET 351744 TERBINAFINE HCL Inactive DICLOFENAC SODIUM 75 MG ORAL TABLET DELAYED RELEASE 1 tablet by mouth twice daily PRN Knee pain DICLOFENAC SODIUM 75 MG ORAL TABLET DELAYED RELEASE 242563 DICLOFENAC SODIUM Inactive METOCLOPRAMIDE HCL 10 MG ORAL TABLET take one PO tid PRN nausea METOCLOPRAMIDE HCL 10 MG ORAL TABLET 792962 METOCLOPRAM ZACH HCL Inactive TERBINAFINE HCL 250 MG ORAL TABLET take one table PO one time da moises TERBINAFINE HCL 250 MG ORAL TABLET 700710 TERBINAFINE H CL Inactive BUPROPION HCL ER [...] SICKNESS 25 M G ORAL TABLET CHEWABLE 038872 MECLIZINE HCL Inactive SUMATRIPTAN SUCCINATE 100 MG ORAL TABLET Take one PRN for migran e SUMATRIPTAN SUCCINATE 100 MG ORAL TABLET 790159 SUMATRIPTAN SUCCINATE Inactive COMPRO 25 MG RECTAL SUPPOSITORY insert or apply one garza ppository rectally as directed every 12 hours as needed for nausea COMPRO 25 MG RECTAL SUPPOSITORY 238202 PROCHLORPERAZINE Inactive ONDANSETRON 8 MG ORAL TABLET DISINTEGRATING place one tablet on tongue and allow to dissolve every 6 hours as needed for vomitting ONDANSETRON 8 MG ORAL TABLET DISINTEGRATING 051039 ONDANSETRON Inactive HYDROCODONE-ACETAMINOPHEN 5-325 MG ORAL TABLET 0.5 to 1 tab by mouth every 6 hours as needed HYDROCODONE-ACETAMIN OPHEN 5-325 MG ORAL TABLET 444882 HYDROCODONE-ACETAMINOPHEN Inactive BACTRIM DS 800-160 MG ORAL TABLET 1 tab by mouth twice daily 201 11/23/03 BACTRIM DS 800-160 MG ORAL TABLET 247029 TRIMETHOPRIM-SULFAMETHOXAZOLE Inactive DIFLUCAN 150 MG ORAL TABLET 1 tablet by mouth if neede d, hold until symptoms start DIFLUCAN 150 MG ORAL TABLET 634063 FLUCONAZ OLE Inactive IBUPROFEN 800 MG ORAL TABLET 1 tab every 8 hours with food 03/20 IBUPROFEN 800 MG ORAL TABLET 515191 IBUPROFEN [place] ctive HYDROCODONE-ACETAMINOPHEN 5-325 MG ORAL TABLET 1 tab b y mouth every 6 hours as needed HYDROCODONE-ACETAMINOPHEN 5-325 MG ORAL TABLET 013408 HYDROCODONE-ACETAMINOPHEN Inactive BACTROBAN 2 % EXTERNAL CREAM Apply to affected area BID for up to 10 days BACTROBAN 2 % EXTERNAL CREAM 620361 MUPIROCIN CA LCIUM Inactive MAGNESIUM CITRATE 1.745 GM/30ML ORAL SOLUTION 150ml po BID P RN Constipation MAGNESIUM CITRATE 1.745 GM/30ML ORAL SOLUTION 10 11087 MAGNESIUM CITRATE Inactive DIFLUCAN 150 MG ORAL TABLET 1 tablet by mouth qod 2015 DIFLUCAN 150 MG ORAL TABLET 327171 FLUCONAZOLE Inactive BACTRIM DS 800-160 MG ORAL TABLET 1 tab by mouth twice daily 201 12/19/26 BACTRIM DS 800-160 MG ORAL TABLET 670167 TRIMETHOPRIM-SULFAMETHOXAZOLE Inactive CLARITIN 10 MG ORAL TABLET 1 tablet by mouth daily as needed for allergies CLARITIN 10 MG ORAL TABLET 340623 LORATADINE I nactive FLUTICASONE PROPIONATE 50 MCG/ACT NASAL SUSPENSION 2 s prays/nostril qd PRN Congestion/Allergies FLUTICASONE PROPION ATE 50 MCG/ACT NASAL SUSPENSION 4222984 FLUTICASONE PROPIONATE Inactive MIRALAX ORAL POWDER 8.5 to 17g po qd PRN Constipation MIRALAX ORAL POWDER 907398 POLYETHYLENE GLYCOL 3350 Inactive IBUPROFEN 800 MG ORAL TABLET 1 tab every 8 hours as needed for p ain IBUPROFEN 800 MG ORAL TABLET 957182 IBUPROFEN [place] ctive HYDROCHLOROTHIAZIDE 12.5 MG ORAL CAPSULE 1 po qd PRN Edema 01/10 HYDROCHLOROTHIAZIDE 12.5 MG ORAL CAPSULE 667259 HYDROCH LOROTHIAZIDE Inactive CIPRO 500 MG ORAL TABLET 1 tablet by mouth twice daily CIPRO 500 MG ORAL TABLET 664863 CIPROFLOXACIN HCL Inactive FLUCONAZOLE 150 MG ORAL TABLET take 1 tab po qday once FLUCONAZOLE 150 MG ORAL TABLET 045924 FLUCONAZOLE Inactive ZITHROMAX Z-KARTHIK 250 MG ORAL TABLET 2 today, then 1 daily for 4 d ays ZITHROMAX Z-KARTHIK 250 MG ORAL TABLET 448714 AZITHROMYCIN Inactive PREDNISONE 20 MG ORAL TABLET 2 tabs daily for 3 days, 1 tab daily for 3 days, 1/2 tab daily for 2 days PREDNISONE 20 MG ORAL T ABLET 381433 PREDNISONE Inactive AZITHROMYCIN 250 MG ORAL TABLET 2 po qd x 1 day, then 1 po q d x 4 days AZITHROMYCIN 250 MG ORAL TABLET 370764 AZITHROMY SPARKLE Inactive PREDNISONE 20 MG ORAL TABLET 2 tabs daily for 3 days, 1 tab daily for 3 days, 1/2 tab daily for 2 days PREDNISONE 20 MG ORAL TABLET 820449 PREDNISONE Inactive CEFDINIR 300 MG ORAL CAPSULE by mouth twice a day 2013 CEFDINIR 300 MG ORAL CAPSULE 042546 CEFDINIR Inactive TRIAMCINOLONE ACETONIDE 0.1 % EXTERNAL OINTMENT Apply to affected areas TID for up to 2 weeks TRIAMCINOLONE ACETON ZACH 0.1 % EXTERNAL OINTMENT 3558248 TRIAMCINOLONE ACETONIDE Inactive PREDNISONE 20 MG ORAL TABLET 2 tabs daily for 3 days, 1 tab daily for 3 days, 1/2 tab daily for 2 days PREDNISONE 20 MG ORAL T ABLET 576792 PREDNISONE Inactive BACTRIM DS 800-160 MG ORAL TABLET 1 po BID x 7 days 29/04/10 BACTRIM DS 800-160 MG ORAL TABLET 048415 SULFAMETHOXAZOLE-TRIMETHOP RIM Inactive CIPRO 500 MG ORAL TABLET 1 tablet by mouth twice daily CIPRO 500 MG ORAL TABLET 854073 CIPROFLOXACIN HCL Inactive AZITHROMYCIN 250 MG ORAL TABLET 2 po qd x 1 day, then 1 po q d x 4 days AZITHROMYCIN 250 MG ORAL TABLET 440641 AZITHROMY SPARKLE Inactive FLAGYL 500 MG ORAL TABLET 1 tablet by mouth bid 04/13 FLAGYL 500 MG ORAL TABLET 970389 METRONIDAZOLE Inactive AZITHROMYCIN 250 MG ORAL TABLET 2 po qd x 1 day, then 1 po q d x 4 days AZITHROMYCIN 250 MG ORAL TABLET 586244 AZITHROMY SPARKLE Inactive AMOXICILLIN 500 MG ORAL CAPSULE 2 po BID x 10 days 201 01/15/27 AMOXICILLIN 500 MG ORAL CAPSULE 019930 AMOXICILLIN Inactive AMOXICILLIN 500 MG ORAL CAPSULE 2 po BID x 14 days for H. Pylori AMOXICILLIN 500 MG ORAL CAPSULE 767357 AMOXICILLIN Inactive CLARITHROMYCIN 500 MG ORAL TABLET 1 tab po BID x 14 days CLARITHROMYCIN 500 MG ORAL TABLET 108725 CLARITHROMYCIN Inacti ve FLAGYL 500 MG ORAL TABLET 1 tablet by mouth bid 08/29 FLAGYL 500 MG ORAL TABLET 218905 METRONIDAZOLE Inactive PROTONIX 40 MG ORAL TABLET DELAYED RELEASE 1 pill by m outh daily, for acid reflux PROTONIX 40 MG ORAL TABLET DELAYED RELEAS E 738029 PANTOPRAZOLE SODIUM Inactive Immunizations Vaccine Administration Date [...] 11 .6-14.8 platelet count 215 10^3/MM^3 10*3/mm3 244-181 8379/11/28 erythrocyte (RBC) count 4.17 10^6/MM^3 10*6/mm3 3.80-5.8 0 lymphocytes as percent of blood leukocytes 23.9 % 20.5-51.1 monocytes as percent of blood leukocytes 7.3 % 1.7-9.3 neutrophils as percent of blood leukocytes 66.5 % 42.2-75.2 leukocyte count, blood 7.6 10^3/MM^3 10*3/mm3 4.6-10.2 Lab Report: Comp. Metabolic Panel, B-Typ e Natriuretic Peptide, Free Thyr ... - Chemistry potassium, serum 4.4 mmol/L 3.5-5.2 chloride, serum 102 mmol/L 98-107 sodium, serum 138 mmol/L 312-689 8159/06/27 carbon dioxide, venous blood 30.3 mmol/L 21.0-32 .0 blood glucose 95 mg/dL 65-95 urea nitrogen, [...] 0.60 mg/dL 0.00-1.00 sodium, serum 139 mmol/L 949-308 5627/11/28 carbon dioxide, venous blood 26.0 mmol/L 21.0-32 [...] 5.0-8.5 Encounters Code Encounter Date Provider Facility CPT-75665 [id number] Vst-Est Level III 14:40:49 CDT Paul Hamlin MD [facility] CPT-98441 Level 4 Est. Patient 11:08:43 CDT Checo Conklin MD [facility] CPT-06059 [id number] Vst-Est Level III 09:37:41 CDT Dangelo Rangel MD [facility] CPT-73276 Level 4 Est. Patient 08:57:51 FLOOR INSPECTOR Checo Conklin MD [facility] CPT-03060 Level 3 Est. Patient 11:24:55 FLOOR INSPECTOR Efren almendarez [facility] CPT-08729 Level 3 Est. Patient 13:05:44 CDT Paul Hamlin MD [facility] CPT-21668 Level 3 Est. Patient 11:29:55 CDT Checo Conklin MD [facility] CPT-07581 Level 4 Est. Patient 11:08:12 FLOOR INSPECTOR Checo Conklin MD [facility] CPT-92966 Level 4 Est. Patient 16:06:48 FLOOR INSPECTOR Checo Conklin MD [facility] CPT-75216 Level 3 Est. Patient 09:11:49 CDT Efren almendarez [facility] CPT-54356 Level 2 Est. Patient 19:53:27 CDT Tanner hill MD [facility] CPT-67000 Level 3 Est. Patient 09:15:34 CDT Efren almendarez [facility] CPT-02969 Level 3 Est. Patient 11:28:51 FLOOR INSPECTOR Efren almendarez [facility] CPT-32872 Level 4 Est. Patient 13:55:46 FLOOR INSPECTOR Checo Conklin MD [facility] CPT-47334 Level 4 Est. Patient 17:10:53 CDT Checo Conklin MD [facility] CPT-34879 Level 3 Est. Patient 15:56:22 CDT Checo Conklin MD [facility] CPT-22194 Level 3 Est. Patient 15:29:07 CDT Checo Conklin MD [facility] CPT-64878 Level 3 Est. Patient 14:38:41 CDT Checo Conklin MD [facility] CPT-01573 Level 3 Est. Patient 15:22:03 FLOOR INSPECTOR Thomas reynolds DO [facility] CPT-51904 Level 3 Est. Patient 13:34:17 FLOOR INSPECTOR Checo Conklin MD [facility] CPT-26351 Level 3 Est. Patient 12:29:32 CDT Dangelo arroyo MD [facility] CPT-39053 Level 3 Est. Patient 16:53:02 CDT Checo Conklin MD [facility] CPT-14498 Level 3 Est. Patient 16:37:13 CDT Checo Conklin MD [facility] CPT-14436 Level 3 Est. Patient 16:16:59 CDT Paul Hamlin MD [facility] CPT-88607 Level 3 Est. Patient 14:20:13 CDT Dangelo arroyo MD [facility] CPT-45677 Level 4 Est. Patient 11:29:33 CDT Checo Conklin MD [facility] CPT-04726 Level 3 Est. Patient 17:08:31 CDT Checo Conklin MD [facility] CPT-92377 Level 3 Est. Patient 16:50:42 FLOOR INSPECTOR Checo Conklin MD [facility] CPT-36528 Level 4 Est. Patient 09:26:08 FLOOR INSPECTOR Checo Conklin MD [facility] CPT-38437 Level 3 Est. Patient 11:37:10 CDT Checo Conklin MD [facility] CPT-27434 Level 4 Est. Patient 14:07:38 CDT Checo Conklin MD [facility] CPT-64967 Level 3 Est. Patient 09:54:41 CDT Checo Conklin MD [facility] CPT-07430 Level 3 Est. Patient 11:10:54 CDT Paul Hamlin MD [facility] CPT-75907 Level 3 Est. Patient 14:16:56 FLOOR INSPECTOR Checo Conklin MD [facility] CPT-47612 Level 3 Est. Patient 11:04:11 FLOOR INSPECTOR Checo Conklin MD [facility] CPT-43642 Level 3 Est. Patient 17:09:26 CDT Dangelo arroyo MD [facility] CPT-98464 Level 3 Est. Patient 16:54:37 CDT Checo Conklin MD [facility] Procedures Code Procedure Name Date Entry Date Standard Desc ription CPT-32193 Wrist, right, comp 3V - XRAY USE ONLY 09:24:31 CDT CPT-48641 Abd compl w upright - XRAY USE ONLY 1 1:36:54 FLOOR INSPECTOR CPT-84964 UA w micro - LAB USE ONLY 17:06:46 CDT 2015 CPT-10165 [facility] Qual - LAB USE ONLY 17:06:46 CDT 05/06 CPT-15168 CMP - LAB USE ONLY 17:06:46 CDT CPT-48832 CBC with Diff - LAB USE ONLY 17:06:45 CDT 2 CPT-49153 Venipuncture Draw Fee 17:06:45 CDT CPT-LR Lesion Removal 19:53:27 CDT CPT-OV Office Visit 11:31:28 CDT CPT-50401 Tubersol 09:39:29 CDT CPT-J2550 Phenergan 25 mg (Promethazine) 13:59:02 FLOOR INSPECTOR CPT-J1885 Toradol 60 mg (Ketorolac) 13:59:02 FLOOR INSPECTOR 2012
--- OUTSIDE RECORDS SUMMARY | 2019-09-29 01:50 | XMS REPORT | Clinical Summary ---
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 07/28 Checo Conklni MD Other specified gastritis, without menti on [...] 2013 ABDOMINAL PAIN RIGHT LOWER QUADRANT ICD-789.03 Ozzy [...] RELEASE 1 daily with furosemide POTASSIUM CHLORIDE 40951359606 Active Paul Hamlin MD Active FUROSEMIDE 20 MG ORAL TABLET 1 daily for swelling FUROSEMIDE 77527737396 Active Paul Hamlin MD Active HYDROCHLOROTHIAZIDE 12.5 MG ORAL CAPSULE 1 po qd PRN Edema 01/10 HYDROCHLOROTHIAZIDE 90938449459 No Longer Active Paul Hamlin MD Active IBUPROFEN 800 MG ORAL TABLET 1 tab every 8 hours as needed for p ain IBUPROFEN 85693813588 No Longer Active Paul Hamlin MD Active PAROXETINE HCL 40 MG ORAL TABLET 1 po qd PAR OXETINE HCL 95008861991 Active Checo Conklin MD Active MIRALAX ORAL POWDER 8.5 to 17g po qd PRN Constipation POLYETHYLENE GLYCOL 3350 32188979050 No Longer Active Checo Conklin MD Active PROTONIX 40 MG ORAL TABLET DELAYED RELEASE 1 pill by m outh daily, for acid reflux PANTOPRAZOLE SODIUM 26917482820 No Longer Activ e Corry Méndez LPN Active FLAGYL 500 MG ORAL TABLET 1 tablet by mouth bid 08/29 METRONIDAZOLE 05104710345 No Longer Active Corry Méndez LPN Active CLARITHROMYCIN 500 MG ORAL TABLET 1 tab po BID x 14 days CLARITHROMYCIN 88729641172 No Longer Active Corry Méndez LPN Active AMOXICILLIN 500 MG ORAL CAPSULE 2 po BID x 14 days for H. Pylori AMOXICILLIN 18488886729 No Longer Active Corry Méndez LPN Active FLUTICASONE PROPIONATE 50 MCG/ACT NASAL SUSPENSION 2 s prays/nostril qd PRN Congestion/Allergies FLUTICASONE PROPIONATE 8173439566 9 No Longer Active Checo Conklin MD Active AMOXICILLIN 500 MG ORAL CAPSULE 2 po BID x 10 days 201 01/15/27 AMOXICILLIN 76531241657 No Longer Active Checo Conklin MD Activ e CLARITIN 10 MG ORAL TABLET 1 tablet by mouth daily as needed for allergies LORATADINE 66088886052 No Longer Active Checo Ortiz MD Active BACTRIM DS 800-160 MG ORAL TABLET 1 tab by mouth twice daily 201 12/19/26 TRIMETHOPRIM-SULFAMETHOXAZOLE 04463935008 No Longer Active Ragini Carrillo MD Active DIFLUCAN 150 MG ORAL TABLET 1 tablet by mouth qod 2015 FLUCONAZOLE 34898184230 No Longer Active Efren Medel BPO SPECIALIST Act mike AZITHROMYCIN 250 MG ORAL TABLET 2 po qd x 1 day, then 1 po q d x 4 days AZITHROMYCIN 76033867462 No Longer Active Efren flores BPO SPECIALIST Active FLAGYL 500 MG ORAL TABLET 1 tablet by mouth bid 04/13 METRONIDAZOLE 30544698270 No Longer Active Checo Conklin MD Acti ve FOCALIN XR 10 MG ORAL CAPSULE EXTENDED RELEASE 24 HOUR 1 po q a.m. DEXMETHYLPHENIDATE HCL 47398889603 Active Checo Conklin MD Active MAGNESIUM CITRATE 1.745 GM/30ML ORAL SOLUTION 150ml po BID P RN Constipation MAGNESIUM CITRATE 45901901917 No Longer Active Checo Conklin MD Active BACTROBAN 2 % EXTERNAL CREAM Apply to affected area BID for up to 10 days MUPIROCIN CALCIUM 89139025120 No Longer Active Checo Conklin MD Active HYDROCODONE-ACETAMINOPHEN 5-325 MG ORAL TABLET 1 tab b y mouth every 6 hours as needed HYDROCODONE-ACETAMINOPHEN 66795013347 No Longer Active Checo Conklin MD Active IBUPROFEN 800 MG ORAL TABLET 1 tab every 8 hours with food 03/20 IBUPROFEN 33107402653 No Longer Active Checo Conklin MD Active DIFLUCAN 150 MG ORAL TABLET 1 tablet by mouth if neede d, hold until symptoms start FLUCONAZOLE 13285228808 No Longer Active Checo Conklin MD Active BACTRIM DS 800-160 MG ORAL TABLET 1 tab by mouth twice daily 201 11/23/03 TRIMETHOPRIM-SULFAMETHOXAZOLE 13497532599 No Longer Active K bernice Méndez LPN Active HYDROCODONE-ACETAMINOPHEN 5-325 MG ORAL TABLET 0.5 to 1 tab by mouth every 6 hours as needed HYDROCODONE-ACETAMINOPHEN 53323454276 No Longer Active Checo Conklin MD Active ONDANSETRON 8 MG ORAL TABLET DISINTEGRATING place one tablet on tongue and allow to dissolve every 6 hours as needed for vomitting ONDANSETRON 23881280840 No Longer Active Checo Conklin MD Activ e COMPRO 25 MG RECTAL SUPPOSITORY insert or apply one garza ppository rectally as directed every 12 hours as needed for nausea PROCHLORPERAZINE 65367302395 No Longer Active Checo Conklin MD A ctive SUMATRIPTAN SUCCINATE 100 MG ORAL TABLET Take one PRN for migran e SUMATRIPTAN SUCCINATE 48864881594 No Longer Active Checo Conklin MD Active TRAVEL SICKNESS 25 MG ORAL TABLET CHEWABLE chew and sw allow one tablet every 6 hours as needed MECLIZINE HCL 16384833989 No Longer A ctive Checo Conklin MD Active BUPROPION HCL ER (SR) 100 MG ORAL TABLET EXTENDED RELE ASE 12 HOUR take one tablet by mouth one time daily for one week then take 1 two times daily BUPROPION HCL 70689406506 No Longer Active Checo gallagher MD Active TERBINAFINE HCL 250 MG ORAL TABLET take one table PO one time da moises TERBINAFINE HCL 82399692804 No Longer Active Checo Conklin MD Active METOCLOPRAMIDE HCL 10 MG ORAL TABLET take one PO tid PRN nausea METOCLOPRAMIDE HCL 97488174802 No Longer Active Checo Conklin MD Active DICLOFENAC SODIUM 75 MG ORAL TABLET DELAYED RELEASE 1 tablet by mouth twice daily PRN Knee pain DICLOFENAC SODIUM 07266770859 No Longer Active Checo Conklin MD Active LAMISIL 250 MG ORAL TABLET 1 po qd TERBINAFI NE HCL 78071934980 No Longer Active Checo Conklin MD Active REGLAN 10 MG ORAL TABLET 1 po TID PRN Nausea 3 METOCLOPRAMIDE HCL 20570721278 No Longer Active Checo Conklin MD Active CELEXA 20 MG ORAL TABLET 1 tablet by mouth daily 09/26 CITALOPRAM HYDROBROMIDE 48795160948 No Longer Active Checo Conklin MD Active AZITHROMYCIN 250 MG ORAL TABLET 2 po qd x 1 day, then 1 po q d x 4 days AZITHROMYCIN 12241328635 No Longer Active Checo Ortiz MD Active HYDROCODONE-ACETAMINOPHEN 5-325 MG ORAL TABLET 1 po q 6hr PRN Pa in HYDROCODONE-ACETAMINOPHEN 18520064331 No Longer Active Lenora Conklin MD Active PHENAZOPYRIDINE HCL 200 MG ORAL TABLET take 1 tab po TID for bladder pain PHENAZOPYRIDINE HCL 53160903057 No Longer Active Joe Conklin MD Active CIPRO 500 MG ORAL TABLET 1 tablet by mouth twice daily CIPROFLOXACIN HCL 19732466326 No Longer Active Dangelo Rangel MD Active HYDROCODONE-ACETAMINOPHEN 5-325 MG ORAL TABLET 1/2 to 1 po q 4 hours prn cough HYDROCODONE-ACETAMINOPHEN 25907085995 No Longer Activ candy Rangel MD Active BACTRIM DS 800-160 MG ORAL TABLET 1 po BID x 7 days 29/04/10 SULFAMETHOXAZOLE-TRIMETHOPRIM 86640820630 No Longer Active Checo Conklin MD Active PREDNISONE 20 MG ORAL TABLET 2 tabs daily for 3 days, 1 tab daily for 3 days, 1/2 tab daily for 2 days PREDNISONE 86826444335 No Longer Active Checo Conklin MD Active TRIAMCINOLONE ACETONIDE 0.1 % EXTERNAL OINTMENT Apply to affected areas TID for up to 2 weeks TRIAMCINOLONE ACETONIDE 57301132412 No Longer Active Checo Conklin MD Active CEFDINIR 300 MG ORAL CAPSULE by mouth twice a day 2013 CEFDINIR 39047983657 No Longer Active Dangelo Rangel MD Acti ve BUPROPION HCL ER (SMOKING DET) 150 MG ORAL TABLET EXTE NDED RELEASE 12 HOUR 1 a day for 1 week then 1 twice a day BUPROPION HCL (SMOKING DETER) 46539449031 No Longer Active Checo Conklin MD Active SIMVASTATIN 20 MG ORAL TABLET 1 po qd SIMVASTAT IN 09331989102 Active Checo Conklin MD Active CHANTIX STARTING MONTH KARTHIK 0.5 MG X 11 & 1 MG X 42 ORA L TABLET 0.5mg daily for 3 days, then 0.5mg BID for 4 days, then 1mg BID VARENICLINE TARTRATE 69296587626 No Longer Active Checo Conklin MD Activ e XANAX 0.5 MG ORAL TABLET 1 po BID PRN anxiety A LPRAZOLAM 82501068451 Active Thomas Marks DO Active CONCERTA 18 MG ORAL TABLET EXTENDED RELEASE 1 po q a.m. METHYLPHENIDATE HCL 54959178614 No Longer Active Checo Conklin MD Active AMBIEN 5 MG ORAL TABLET 1 po qHS PRN Insomnia Z OLPIDEM TARTRATE 26600031815 Active Thomas Marks DO Active TRAZODONE HCL 100 MG ORAL TABLET 0.5 to 1 po qHS PRN Insomnia 20 30/07/08 TRAZODONE HCL 18739118421 No Longer Active Checo Conklin MD Active FIORICET 325-50-40 MG TAB 1 tablet by mouth four times daily as needed [id number] 52159317292 No Longer Active Checo Conklin MD Active PHENERGAN CREAM* 25mg applied to wrist q6hr PRN Nausea PHENERGAN CREAM* No Longer Active Checo Conklin MD A ctive FLONASE 50 MCG/ACT NASAL SUSPENSION 1 spray each nostril am and hs FLUTICASONE PROPIONATE 91170318436 No Longer Active Checo Conklin MD Active ANTIPYRINE-BENZOCAINE 5.4-1.4 % OTIC SOLUTION 1-2 drops in affec yohannes ear BENZOCAINE-ANTIPYRINE 95533922500 No Longer Active Checo Conklin MD Active CEFDINIR 300 MG ORAL CAPSULE 1 po bid CEFDINIR 96826432173 No Longer Active Checo Conklin MD Active PREDNISONE 20 MG ORAL TABLET 2 tabs daily for 3 days, 1 tab daily for 3 days, 1/2 tab daily for 2 days PREDNISONE 10309019979 No Longer Active Checo Conklin MD Active AZITHROMYCIN 250 MG ORAL TABLET 2 po qd x 1 day, then 1 po q d x 4 days AZITHROMYCIN 92672071606 No Longer Active Checo Ortiz MD Active PREDNISONE 20 MG ORAL TABLET 2 tabs daily for 3 days, 1 tab daily for 3 days, 1/2 tab daily for 2 days PREDNISONE 64404362840 No Longer Active Checo Conklin MD Active ZITHROMAX Z-KARTHIK 250 MG ORAL TABLET 2 today, then 1 daily for 4 d ays AZITHROMYCIN 59327888867 No Longer Active Paul Hamlin MD Active FOCALIN XR 10 MG ORAL CAPSULE EXTENDED RELEASE 24 HOUR 1 po q a. m. DEXMETHYLPHENIDATE HCL 44202556541 No Longer Active Paul Hamlin MD Active PERCOCET 10-325 MG ORAL TABLET 1 tablet every 6 hours as needed for pain OXYCODONE-ACETAMINOPHEN 02347117096 No Longer Active Paul Hamlin MD Active LORTAB 5-500 MG ORAL TABLET 1/2 to 1 tablet by mouth e very 4 hours as needed for pain HYDROCODONE-ACETAMINOPHEN 35062335941 No Longer Active Checo Conklin MD Active FOCALIN XR 15 MG ORAL CAPSULE EXTENDED RELEASE 24 HOUR 1 po q a. m. DEXMETHYLPHENIDATE HCL 79237399370 No Longer Active Checo Conklin MD Active ZOFRAN ODT 4 MG ORAL TABLET DISINTEGRATING 1 po q6hr PRN Nausea ONDANSETRON 35713359128 No Longer Active Checo Conklin MD Active PERCOCET 5-325 MG ORAL TABLET 1 tablet by mouth every 6 hour s as needed OXYCODONE-ACETAMINOPHEN 49844998433 No Longer Active Checo Conklin MD Active PYRIDIUM 200 MG ORAL TABLET take 1 tab po TID prn urinary pain. PHENAZOPYRIDINE HCL 04085088161 No Longer Active Checo Joshua Active FLUCONAZOLE 150 MG ORAL TABLET take 1 tab po qday once FLUCONAZOLE 48148929849 No Longer Active Dangelo Rangel MD Acti ve CIPRO 500 MG ORAL TABLET 1 tablet by mouth twice daily CIPROFLOXACIN HCL 01266500473 No Longer Active Dangelo Rangel MD Active PYRIDIUM 200 MG ORAL TABLET take 1 tab po TID prn urinary pain. PYRIDIUM 200 MG ORAL TABLET 3055531 PHENAZOPYRIDINE HCL Inactive PERCOCET 5-325 MG ORAL TABLET 1 tablet by mouth every 6 hour s as needed PERCOCET 5-325 MG ORAL TABLET 7748649 OXYCODONE-ACETAMINOPHEN Inactive ZOFRAN ODT 4 MG ORAL TABLET DISINTEGRATING 1 po q6hr PRN Nausea ZOFRAN ODT 4 MG ORAL TABLET DISINTEGRATING 597783 ONDAN SETRON Inactive FOCALIN XR 15 MG [...] for pain PERCOCET 10-325 MG ORAL TABLET 8397704 OXYCODONE-ACETAMI NOPHEN Inactive FOCALIN XR 10 MG ORAL CAPSULE EXTENDED RELEASE 24 HOUR 1 po q a. m. FOCALIN XR 10 MG ORAL CAPSULE EXTENDED RELEASE 24 HOUR DEXMETHYLPHENIDATE HCL Inactive CEFDINIR 300 MG ORAL CAPSULE 1 po bid CEFDINI R 300 MG ORAL CAPSULE 185986 CEFDINIR Inactive ANTIPYRINE-BENZOCAINE 5.4-1.4 % OTIC SOLUTION 1-2 drops in affec yohannes ear ANTIPYRINE-BENZOCAINE 5.4-1.4 % OTIC SOLUTION BENZOCAINE-ANTIPYRINE Inactive FLONASE 50 MCG/ACT NASAL SUSPENSION 1 spray each nostril am and hs FLONASE 50 MCG/ACT NASAL SUSPENSION 5250037 FLUTICASONE PROPIONATE I nactive PHENERGAN CREAM* 25mg applied to wrist q6hr PRN Nausea PHENERGAN CREAM* Inactive FIORICET 325-50-40 MG TAB 1 tablet by mouth four times daily as needed FIORICET 325-50-40 MG TAB ACETAMINOPHEN-C AFF-BUTALBITAL Inactive TRAZODONE HCL 100 MG ORAL TABLET 0.5 to 1 po qHS PRN Insomnia 20 30/07/08 TRAZODONE HCL 100 MG ORAL TABLET 705119 TRAZODONE HCL Inactive CONCERTA 18 MG ORAL [...] cough HYDROCODONE-ACETAMINOPHEN 5-325 MG ORAL TABLET 8 55902 HYDROCODONE-ACETAMINOPHEN Inactive PHENAZOPYRIDINE HCL 200 MG ORAL TABLET take 1 tab po TID for bladder pain PHENAZOPYRIDINE HCL 200 MG ORAL TABLET 6649736 PHENAZOPYRIDINE HCL Inactive HYDROCODONE-ACETAMINOPHEN 5-325 MG ORAL TABLET 1 po q 6hr PRN Pa in HYDROCODONE-ACETAMINOPHEN 5-325 MG ORAL TABLET 091705 HYDROCODONE-ACETAMINOPHEN Inactive CELEXA 20 MG ORAL TABLET 1 tablet by mouth daily 09/26 CELEXA 20 MG ORAL TABLET 737856 CITALOPRAM HYDROBROMIDE Inactive REGLAN 10 MG ORAL TABLET 1 po TID PRN Nausea 3 REGLAN 10 MG ORAL TABLET 489293 METOCLOPRAMIDE HCL Inactive LAMISIL 250 MG ORAL TABLET 1 po qd L AMISIL 250 MG ORAL TABLET 471531 TERBINAFINE HCL Inactive DICLOFENAC SODIUM 75 MG ORAL TABLET DELAYED RELEASE 1 tablet by mouth twice daily PRN Knee pain DICLOFENAC SODIUM 75 MG ORAL TABLET DELAYED RELEASE 939175 DICLOFENAC SODIUM Inactive METOCLOPRAMIDE HCL 10 MG ORAL TABLET take one PO tid PRN nausea METOCLOPRAMIDE HCL 10 MG ORAL TABLET 747432 METOCLOPRAM ZACH HCL Inactive TERBINAFINE HCL 250 MG ORAL TABLET take one table PO one time da moises TERBINAFINE HCL 250 MG ORAL TABLET 605968 TERBINAFINE H CL Inactive BUPROPION HCL ER [...] SICKNESS 25 M G ORAL TABLET CHEWABLE 427478 MECLIZINE HCL Inactive SUMATRIPTAN SUCCINATE 100 MG ORAL TABLET Take one PRN for migran e SUMATRIPTAN SUCCINATE 100 MG ORAL TABLET 577222 SUMATRIPTAN SUCCINATE Inactive COMPRO 25 MG RECTAL SUPPOSITORY insert or apply one garza ppository rectally as directed every 12 hours as needed for nausea COMPRO 25 MG RECTAL SUPPOSITORY 736631 PROCHLORPERAZINE Inactive ONDANSETRON 8 MG ORAL TABLET DISINTEGRATING place one tablet on tongue and allow to dissolve every 6 hours as needed for vomitting ONDANSETRON 8 MG ORAL TABLET DISINTEGRATING 270219 ONDANSETRON Inactive HYDROCODONE-ACETAMINOPHEN 5-325 MG ORAL TABLET 0.5 to 1 tab by mouth every 6 hours as needed HYDROCODONE-ACETAMIN OPHEN 5-325 MG ORAL TABLET 518196 HYDROCODONE-ACETAMINOPHEN Inactive BACTRIM DS 800-160 MG ORAL TABLET 1 tab by mouth twice daily 201 11/23/03 BACTRIM DS 800-160 MG ORAL TABLET 321883 TRIMETHOPRIM-SULFAMETHOXAZOLE Inactive DIFLUCAN 150 MG ORAL TABLET 1 tablet by mouth if neede d, hold until symptoms start DIFLUCAN 150 MG ORAL TABLET 425277 FLUCONAZ OLE Inactive IBUPROFEN 800 MG ORAL TABLET 1 tab every 8 hours with food 03/20 IBUPROFEN 800 MG ORAL TABLET 573047 IBUPROFEN Krupa ctive HYDROCODONE-ACETAMINOPHEN 5-325 MG ORAL TABLET 1 tab b y mouth every 6 hours as needed HYDROCODONE-ACETAMINOPHEN 5-325 MG ORAL TABLET 651163 HYDROCODONE-ACETAMINOPHEN Inactive BACTROBAN 2 % EXTERNAL CREAM Apply to affected area BID for up to 10 days BACTROBAN 2 % EXTERNAL CREAM 198287 MUPIROCIN CA LCIUM Inactive MAGNESIUM CITRATE 1.745 GM/30ML ORAL SOLUTION 150ml po BID P RN Constipation MAGNESIUM CITRATE 1.745 GM/30ML ORAL SOLUTION 10 05671 MAGNESIUM CITRATE Inactive DIFLUCAN 150 MG ORAL TABLET 1 tablet by mouth qod 2015 DIFLUCAN 150 MG ORAL TABLET 065332 FLUCONAZOLE Inactive BACTRIM DS 800-160 MG ORAL TABLET 1 tab by mouth twice daily 201 12/19/26 BACTRIM DS 800-160 MG ORAL TABLET 010286 TRIMETHOPRIM-SULFAMETHOXAZOLE Inactive CLARITIN 10 MG ORAL TABLET 1 tablet by mouth daily as needed for allergies CLARITIN 10 MG ORAL TABLET 432146 LORATADINE I nactive FLUTICASONE PROPIONATE 50 MCG/ACT NASAL SUSPENSION 2 s prays/nostril qd PRN Congestion/Allergies FLUTICASONE PROPION ATE 50 MCG/ACT NASAL SUSPENSION 7626342 FLUTICASONE PROPIONATE Inactive MIRALAX ORAL POWDER 8.5 to 17g po qd PRN Constipation MIRALAX ORAL POWDER 532255 POLYETHYLENE GLYCOL 3350 Inactive IBUPROFEN 800 MG ORAL TABLET 1 tab every 8 hours as needed for p ain IBUPROFEN 800 MG ORAL TABLET 588964 IBUPROFEN Sullivan ctive HYDROCHLOROTHIAZIDE 12.5 MG ORAL CAPSULE 1 po qd PRN Edema 01/10 HYDROCHLOROTHIAZIDE 12.5 MG ORAL CAPSULE 287830 HYDROCH LOROTHIAZIDE Inactive CIPRO 500 MG ORAL TABLET 1 tablet by mouth twice daily CIPRO 500 MG ORAL TABLET 125337 CIPROFLOXACIN HCL Inactive FLUCONAZOLE 150 MG ORAL TABLET take 1 tab po qday once FLUCONAZOLE 150 MG ORAL TABLET 538192 FLUCONAZOLE Inactive ZITHROMAX Z-KARTHIK 250 MG ORAL TABLET 2 today, then 1 daily for 4 d ays ZITHROMAX Z-KARTHIK 250 MG ORAL TABLET 385152 AZITHROMYCIN Inactive PREDNISONE 20 MG ORAL TABLET 2 tabs daily for 3 days, 1 tab daily for 3 days, 1/2 tab daily for 2 days PREDNISONE 20 MG ORAL T ABLET 268612 PREDNISONE Inactive AZITHROMYCIN 250 MG ORAL TABLET 2 po qd x 1 day, then 1 po q d x 4 days AZITHROMYCIN 250 MG ORAL TABLET 771414 AZITHROMY SPARKLE Inactive PREDNISONE 20 MG ORAL TABLET 2 tabs daily for 3 days, 1 tab daily for 3 days, 1/2 tab daily for 2 days PREDNISONE 20 MG ORAL TABLET 011368 PREDNISONE Inactive CEFDINIR 300 MG ORAL CAPSULE by mouth twice a day 2013 CEFDINIR 300 MG ORAL CAPSULE 223123 CEFDINIR Inactive TRIAMCINOLONE ACETONIDE 0.1 % EXTERNAL OINTMENT Apply to affected areas TID for up to 2 weeks TRIAMCINOLONE ACETON ZACH 0.1 % EXTERNAL OINTMENT 3379435 TRIAMCINOLONE ACETONIDE Inactive PREDNISONE 20 MG ORAL TABLET 2 tabs daily for 3 days, 1 tab daily for 3 days, 1/2 tab daily for 2 days PREDNISONE 20 MG ORAL T ABLET 496861 PREDNISONE Inactive BACTRIM DS 800-160 MG ORAL TABLET 1 po BID x 7 days 29/04/10 BACTRIM DS 800-160 MG ORAL TABLET 341789 SULFAMETHOXAZOLE-TRIMETHOP RIM Inactive CIPRO 500 MG ORAL TABLET 1 tablet by mouth twice daily CIPRO 500 MG ORAL TABLET 937734 CIPROFLOXACIN HCL Inactive AZITHROMYCIN 250 MG ORAL TABLET 2 po qd x 1 day, then 1 po q d x 4 days AZITHROMYCIN 250 MG ORAL TABLET 325501 AZITHROMY SPARKLE Inactive FLAGYL 500 MG ORAL TABLET 1 tablet by mouth bid 04/13 FLAGYL 500 MG ORAL TABLET 441130 METRONIDAZOLE Inactive AZITHROMYCIN 250 MG ORAL TABLET 2 po qd x 1 day, then 1 po q d x 4 days AZITHROMYCIN 250 MG ORAL TABLET 241423 AZITHROMY SPARKLE Inactive AMOXICILLIN 500 MG ORAL CAPSULE 2 po BID x 10 days 201 01/15/27 AMOXICILLIN 500 MG ORAL CAPSULE 790366 AMOXICILLIN Inactive AMOXICILLIN 500 MG ORAL CAPSULE 2 po BID x 14 days for H. Pylori AMOXICILLIN 500 MG ORAL CAPSULE 530718 AMOXICILLIN Inactive CLARITHROMYCIN 500 MG ORAL TABLET 1 tab po BID x 14 days CLARITHROMYCIN 500 MG ORAL TABLET 612813 CLARITHROMYCIN Inacti ve FLAGYL 500 MG ORAL TABLET 1 tablet by mouth bid 08/29 FLAGYL 500 MG ORAL TABLET 582638 METRONIDAZOLE Inactive PROTONIX 40 MG ORAL TABLET DELAYED RELEASE 1 pill by m outh daily, for acid reflux PROTONIX 40 MG ORAL TABLET DELAYED RELEAS E 394763 PANTOPRAZOLE SODIUM Inactive Immunizations Vaccine Administration Date [...] ... - Chemistry sodium, serum 138 mmol/L 673-021 0462/06/27 carbon dioxide, venous blood 30.3 mmol/L 21.0-32 [...] dipstick 1+ Negative sodium, serum 139 mmol/L 532-894 2963/11/28 carbon dioxide, venous blood 26.0 mmol/L 21.0-32 [...] Negative Encounters Code Encounter Date Provider Facility CPT-27943 [id number] Vst-Est Level III 14:40:49 CDT Paul Hamlin MD [facility] CPT-15945 Level 4 Est. Patient 11:08:43 CDT Checo Conklin MD [facility] CPT-53095 [id number] Vst-Est Level III 09:37:41 CDT Dangelo Rangel MD [facility] CPT-86246 Level 4 Est. Patient 08:57:51 OPERATOR TECHNICIAN Checo Conklin MD [facility] CPT-77903 Level 3 Est. Patient 11:24:55 OPERATOR TECHNICIAN Efren almendarez APRN [facility] CPT-87259 Level 3 Est. Patient 13:05:44 CDT Paul Hamlin MD [facility] CPT-12987 Level 3 Est. Patient 11:29:55 CDT Checo Conklin MD [facility] CPT-95336 Level 4 Est. Patient 11:08:12 OPERATOR TECHNICIAN Cehco Conklin MD [facility] CPT-82499 Level 4 Est. Patient 16:06:48 OPERATOR TECHNICIAN Checo Conklin MD [facility] CPT-24503 Level 3 Est. Patient 09:11:49 CDT Efren almendarez [facility] CPT-83361 Level 2 Est. Patient 19:53:27 CDT Tanner hill MD [facility] CPT-48815 Level 3 Est. Patient 09:15:34 CDT Efren almendarez [facility] CPT-37271 Level 3 Est. Patient 11:28:51 OPERATOR TECHNICIAN Efren almendarez [facility] CPT-94345 Level 4 Est. Patient 13:55:46 OPERATOR TECHNICIAN Checo Conklin MD [facility] CPT-23873 Level 4 Est. Patient 17:10:53 CDT Checo Conklin MD [facility] CPT-16733 Level 3 Est. Patient 15:56:22 CDT Checo Conklin MD [facility] CPT-78933 Level 3 Est. Patient 15:29:07 CDT Checo Conklin MD [facility] CPT-68356 Level 3 Est. Patient 14:38:41 CDT Checo Conklin MD [facility] CPT-45051 Level 3 Est. Patient 15:22:03 OPERATOR TECHNICIAN Thomas reynolds DO [facility] CPT-69841 Level 3 Est. Patient 13:34:17 OPERATOR TECHNICIAN Checo Conklin MD [facility] CPT-90030 Level 3 Est. Patient 12:29:32 CDT Dangelo arroyo MD [facility] CPT-56781 Level 3 Est. Patient 16:53:02 CDT Checo Conklin MD [facility] CPT-98754 Level 3 Est. Patient 16:37:13 CDT Checo Conklin MD [facility] CPT-57562 Level 3 Est. Patient 16:16:59 CDT Paul Hamlin MD [facility] CPT-98719 Level 3 Est. Patient 14:20:13 CDT Dangelo arroyo MD [facility] CPT-17590 Level 4 Est. Patient 11:29:33 CDT Checo Conklin MD [facility] CPT-66376 Level 3 Est. Patient 17:08:31 CDT Checo Conklin MD [facility] CPT-53151 Level 3 Est. Patient 16:50:42 OPERATOR TECHNICIAN Checo Conklin MD [facility] CPT-59051 Level 4 Est. Patient 09:26:08 OPERATOR TECHNICIAN Checo Conklin MD [facility] CPT-85216 Level 3 Est. Patient 11:37:10 CDT Checo Conklin MD [facility] CPT-48995 Level 4 Est. Patient 14:07:38 CDT Checo Conklin MD [facility] CPT-47061 Level 3 Est. Patient 09:54:41 CDT Checo Conklin MD [facility] CPT-92632 Level 3 Est. Patient 11:10:54 CDT Paul Hamlin MD [facility] CPT-94153 Level 3 Est. Patient 14:16:56 OPERATOR TECHNICIAN Checo Conklin MD [facility] CPT-25813 Level 3 Est. Patient 11:04:11 OPERATOR TECHNICIAN Checo Conklin MD [facility] CPT-28133 Level 3 Est. Patient 17:09:26 CDT Dangelo arroyo MD [facility] CPT-69087 Level 3 Est. Patient 16:54:37 CDT Checo Conklin MD [facility] Procedures Code Procedure Name Date Entry Date Standard Desc ription CPT-46531 Wrist, right, comp 3V - XRAY USE ONLY 09:24:31 CDT CPT-76998 Abd compl w upright - XRAY USE ONLY 1 1:36:54 OPERATOR TECHNICIAN CPT-52999 UA w micro - LAB USE ONLY 17:06:46 CDT 2015 CPT-94482 [facility] Qual - LAB USE ONLY 17:06:46 CDT 05/06 CPT-23925 CMP - LAB USE ONLY 17:06:46 CDT CPT-26122 CBC with Diff - LAB USE ONLY 17:06:45 CDT 2 CPT-58535 Venipuncture Draw Fee 17:06:45 CDT CPT-LR Lesion Removal 19:53:27 CDT CPT-OV Office Visit 11:31:28 CDT CPT-45724 Tubersol 09:39:29 CDT CPT-J2550 Phenergan 25 mg (Promethazine) 13:59:02 OPERATOR TECHNICIAN CPT-J1885 Toradol 60 mg (Ketorolac) 13:59:02 OPERATOR TECHNICIAN 2012
--- OUTSIDE RECORDS SUMMARY | 2019-09-29 01:50 | XMS REPORT | Clinical Summary ---
Author Author Admin, Bethany Ayala [facility] Address Unknown Phone Unavailable Allergies, Adverse Reactions, [...] Abdominal pain, generalized Nausea 787.02 Resolved Checo Cnoklin MD Nausea alone Helicobacter pylori gastritis 535.40 [...] RELEASE 1 daily with furosemide POTASSIUM CHLORIDE 63533993895 Active Paul Hamlin MD Active FUROSEMIDE 20 MG ORAL TABLET 1 daily for swelling FUROSEMIDE 13124795842 Active Paul Hamlin MD Active HYDROCHLOROTHIAZIDE 12.5 MG ORAL CAPSULE 1 po qd PRN Edema 01/10 HYDROCHLOROTHIAZIDE 00288082668 No Longer Active Paul Hamlin MD Active IBUPROFEN 800 MG ORAL TABLET 1 tab every 8 hours as needed for p ain IBUPROFEN 88972438333 No Longer Active Paul Hamlin MD Active PAROXETINE HCL 40 MG ORAL TABLET 1 po qd PAR OXETINE HCL 09741610217 Active Checo Conklin MD Active MIRALAX ORAL POWDER 8.5 to 17g po qd PRN Constipation POLYETHYLENE GLYCOL 3350 31598826567 No Longer Active Checo Conklin MD Active PROTONIX 40 MG ORAL TABLET DELAYED RELEASE 1 pill by m outh daily, for acid reflux PANTOPRAZOLE SODIUM 83097377844 No Longer Activ e Corry Méndez LPN Active FLAGYL 500 MG ORAL TABLET 1 tablet by mouth bid 08/29 METRONIDAZOLE 04079131132 No Longer Active Corry Méndez LPN Active CLARITHROMYCIN 500 MG ORAL TABLET 1 tab po BID x 14 days CLARITHROMYCIN 22608046190 No Longer Active Corry Méndez LPN Active AMOXICILLIN 500 MG ORAL CAPSULE 2 po BID x 14 days for H. Pylori AMOXICILLIN 28101311531 No Longer Active Corry Méndez LPN Active FLUTICASONE PROPIONATE 50 MCG/ACT NASAL SUSPENSION 2 s prays/nostril qd PRN Congestion/Allergies FLUTICASONE PROPIONATE 0218247733 9 No Longer Active Checo Conklin MD Active AMOXICILLIN 500 MG ORAL CAPSULE 2 po BID x 10 days 201 01/15/27 AMOXICILLIN 37003650764 No Longer Active Checo Conklin MD Activ e CLARITIN 10 MG ORAL TABLET 1 tablet by mouth daily as needed for allergies LORATADINE 55761687913 No Longer Active Checo Ortiz MD Active BACTRIM DS 800-160 MG ORAL TABLET 1 tab by mouth twice daily 201 12/19/26 TRIMETHOPRIM-SULFAMETHOXAZOLE 18627093252 No Longer Active Ragini Carrillo MD Active DIFLUCAN 150 MG ORAL TABLET 1 tablet by mouth qod 2015 FLUCONAZOLE 30417649046 No Longer Active Efren Medel NOZZLE TENDER Act mike AZITHROMYCIN 250 MG ORAL TABLET 2 po qd x 1 day, then 1 po q d x 4 days AZITHROMYCIN 70028848621 No Longer Active Efren flores NOZZLE TENDER Active FLAGYL 500 MG ORAL TABLET 1 tablet by mouth bid 04/13 METRONIDAZOLE 78948072866 No Longer Active Checo Conklni MD Acti ve FOCALIN XR 10 MG ORAL CAPSULE EXTENDED RELEASE 24 HOUR 1 po q a.m. DEXMETHYLPHENIDATE HCL 95861917255 Active Checo Conklin MD Active MAGNESIUM CITRATE 1.745 GM/30ML ORAL SOLUTION 150ml po BID P RN Constipation MAGNESIUM CITRATE 38476584715 No Longer Active Checo Conklin MD Active BACTROBAN 2 % EXTERNAL CREAM Apply to affected area BID for up to 10 days MUPIROCIN CALCIUM 08152915686 No Longer Active Checo Conklin MD Active HYDROCODONE-ACETAMINOPHEN 5-325 MG ORAL TABLET 1 tab b y mouth every 6 hours as needed HYDROCODONE-ACETAMINOPHEN 66046804973 No Longer Active Checo Conklin MD Active IBUPROFEN 800 MG ORAL TABLET 1 tab every 8 hours with food 03/20 IBUPROFEN 43045151096 No Longer Active Checo Conklin MD Active DIFLUCAN 150 MG ORAL TABLET 1 tablet by mouth if neede d, hold until symptoms start FLUCONAZOLE 05507144720 No Longer Active Checo Conklin MD Active BACTRIM DS 800-160 MG ORAL TABLET 1 tab by mouth twice daily 201 11/23/03 TRIMETHOPRIM-SULFAMETHOXAZOLE 46502802801 No Longer Active K bernice Méndez LPN Active HYDROCODONE-ACETAMINOPHEN 5-325 MG ORAL TABLET 0.5 to 1 tab by mouth every 6 hours as needed HYDROCODONE-ACETAMINOPHEN 48154745372 No Longer Active Checo Conklin MD Active ONDANSETRON 8 MG ORAL TABLET DISINTEGRATING place one tablet on tongue and allow to dissolve every 6 hours as needed for vomitting ONDANSETRON 44462447756 No Longer Active Checo Conklin MD Activ e COMPRO 25 MG RECTAL SUPPOSITORY insert or apply one garza ppository rectally as directed every 12 hours as needed for nausea PROCHLORPERAZINE 97275195325 No Longer Active Checo Conklin MD A ctive SUMATRIPTAN SUCCINATE 100 MG ORAL TABLET Take one PRN for migran e SUMATRIPTAN SUCCINATE 17978847502 No Longer Active Checo Conklin MD Active TRAVEL SICKNESS 25 MG ORAL TABLET CHEWABLE chew and sw allow one tablet every 6 hours as needed MECLIZINE HCL 51674055605 No Longer A ctive Checo Conklin MD Active BUPROPION HCL ER (SR) 100 MG ORAL TABLET EXTENDED RELE ASE 12 HOUR take one tablet by mouth one time daily for one week then take 1 two times daily BUPROPION HCL 67002524076 No Longer Active Checo gallagher MD Active TERBINAFINE HCL 250 MG ORAL TABLET take one table PO one time da moises TERBINAFINE HCL 51931424793 No Longer Active Checo Conklin MD Active METOCLOPRAMIDE HCL 10 MG ORAL TABLET take one PO tid PRN nausea METOCLOPRAMIDE HCL 63303757036 No Longer Active Checo Conklin MD Active DICLOFENAC SODIUM 75 MG ORAL TABLET DELAYED RELEASE 1 tablet by mouth twice daily PRN Knee pain DICLOFENAC SODIUM 84918755542 No Longer Active Checo Conklin MD Active LAMISIL 250 MG ORAL TABLET 1 po qd TERBINAFI NE HCL 92519881900 No Longer Active Checo Conklin MD Active REGLAN 10 MG ORAL TABLET 1 po TID PRN Nausea 3 METOCLOPRAMIDE HCL 24710425615 No Longer Active Checo Conklin MD Active CELEXA 20 MG ORAL TABLET 1 tablet by mouth daily 09/26 CITALOPRAM HYDROBROMIDE 46656815151 No Longer Active Checo Conklin MD Active AZITHROMYCIN 250 MG ORAL TABLET 2 po qd x 1 day, then 1 po q d x 4 days AZITHROMYCIN 46010643098 No Longer Active Checo Ortiz MD Active HYDROCODONE-ACETAMINOPHEN 5-325 MG ORAL TABLET 1 po q 6hr PRN Pa in HYDROCODONE-ACETAMINOPHEN 49340963571 No Longer Active Lenora Conklin MD Active PHENAZOPYRIDINE HCL 200 MG ORAL TABLET take 1 tab po TID for bladder pain PHENAZOPYRIDINE HCL 75776358722 No Longer Active Joe Conklin MD Active CIPRO 500 MG ORAL TABLET 1 tablet by mouth twice daily CIPROFLOXACIN HCL 63309547696 No Longer Active Dangelo Rangel MD Active HYDROCODONE-ACETAMINOPHEN 5-325 MG ORAL TABLET 1/2 to 1 po q 4 hours prn cough HYDROCODONE-ACETAMINOPHEN 10669316245 No Longer Activ e Dangelo Rangel MD Active BACTRIM DS 800-160 MG ORAL TABLET 1 po BID x 7 days 29/04/10 SULFAMETHOXAZOLE-TRIMETHOPRIM 28689107744 No Longer Active Checo Conklin MD Active PREDNISONE 20 MG ORAL TABLET 2 tabs daily for 3 days, 1 tab daily for 3 days, 1/2 tab daily for 2 days PREDNISONE 10056060949 No Longer Active Checo Conklin MD Active TRIAMCINOLONE ACETONIDE 0.1 % EXTERNAL OINTMENT Apply to affected areas TID for up to 2 weeks TRIAMCINOLONE ACETONIDE 71523828873 No Longer Active Checo Conklin MD Active CEFDINIR 300 MG ORAL CAPSULE by mouth twice a day 2013 CEFDINIR 86564244894 No Longer Active Dangelo Rangel MD Acti ve BUPROPION HCL ER (SMOKING DET) 150 MG ORAL TABLET EXTE NDED RELEASE 12 HOUR 1 a day for 1 week then 1 twice a day BUPROPION HCL (SMOKING DETER) 91089422381 No Longer Active Checo Conklin MD Active SIMVASTATIN 20 MG ORAL TABLET 1 po qd SIMVASTAT IN 38976554421 Active Checo Conklin MD Active CHANTIX STARTING MONTH KARTHIK 0.5 MG X 11 & 1 MG X 42 ORA L TABLET 0.5mg daily for 3 days, then 0.5mg BID for 4 days, then 1mg BID VARENICLINE TARTRATE 71486186578 No Longer Active Checo Conklin MD Activ e XANAX 0.5 MG ORAL TABLET 1 po BID PRN anxiety A LPRAZOLAM 12076701879 Active Thomas Marks DO Active CONCERTA 18 MG ORAL TABLET EXTENDED RELEASE 1 po q a.m. METHYLPHENIDATE HCL 77063098063 No Longer Active Checo Conklin MD Active AMBIEN 5 MG ORAL TABLET 1 po qHS PRN Insomnia Z OLPIDEM TARTRATE 44930621818 Active Thomas Marks DO Active TRAZODONE HCL 100 MG ORAL TABLET 0.5 to 1 po qHS PRN Insomnia 20 30/07/08 TRAZODONE HCL 54845025680 No Longer Active Checo Conklin MD Active FIORICET 325-50-40 MG TAB 1 tablet by mouth four times daily as needed [id number] 82722789399 No Longer Active Checo Conklin MD Active PHENERGAN CREAM* 25mg applied to wrist q6hr PRN Nausea PHENERGAN CREAM* No Longer Active Checo Conklin MD A ctive FLONASE 50 MCG/ACT NASAL SUSPENSION 1 spray each nostril am and hs FLUTICASONE PROPIONATE 47357961151 No Longer Active Checo Conklin MD Active ANTIPYRINE-BENZOCAINE 5.4-1.4 % OTIC SOLUTION 1-2 drops in affec yohannes ear BENZOCAINE-ANTIPYRINE 01563088780 No Longer Active Checo Conklin MD Active CEFDINIR 300 MG ORAL CAPSULE 1 po bid CEFDINIR 79811983802 No Longer Active Checo Conklin MD Active PREDNISONE 20 MG ORAL TABLET 2 tabs daily for 3 days, 1 tab daily for 3 days, 1/2 tab daily for 2 days PREDNISONE 94304457098 No Longer Active Checo Conklin MD Active AZITHROMYCIN 250 MG ORAL TABLET 2 po qd x 1 day, then 1 po q d x 4 days AZITHROMYCIN 24383522036 No Longer Active Checo Ortiz MD Active PREDNISONE 20 MG ORAL TABLET 2 tabs daily for 3 days, 1 tab daily for 3 days, 1/2 tab daily for 2 days PREDNISONE 22689467090 No Longer Active Checo Conklin MD Active ZITHROMAX Z-KARTHIK 250 MG ORAL TABLET 2 today, then 1 daily for 4 d ays AZITHROMYCIN 86802992684 No Longer Active Paul Hamlin MD Active FOCALIN XR 10 MG ORAL CAPSULE EXTENDED RELEASE 24 HOUR 1 po q a. m. DEXMETHYLPHENIDATE HCL 92205397611 No Longer Active Paul Hamlin MD Active PERCOCET 10-325 MG ORAL TABLET 1 tablet every 6 hours as needed for pain OXYCODONE-ACETAMINOPHEN 65216520123 No Longer Active Paul Hamlin MD Active LORTAB 5-500 MG ORAL TABLET 1/2 to 1 tablet by mouth e very 4 hours as needed for pain HYDROCODONE-ACETAMINOPHEN 80643571043 No Longer Active Checo Conklin MD Active FOCALIN XR 15 MG ORAL CAPSULE EXTENDED RELEASE 24 HOUR 1 po q a. m. DEXMETHYLPHENIDATE HCL 02221160724 No Longer Active Checo Conklin MD Active ZOFRAN ODT 4 MG ORAL TABLET DISINTEGRATING 1 po q6hr PRN Nausea ONDANSETRON 89558333832 No Longer Active Checo Conklin MD Active PERCOCET 5-325 MG ORAL TABLET 1 tablet by mouth every 6 hour s as needed OXYCODONE-ACETAMINOPHEN 47086409887 No Longer Active Checo Conklin MD Active PYRIDIUM 200 MG ORAL TABLET take 1 tab po TID prn urinary pain. PHENAZOPYRIDINE HCL 02213989481 No Longer Active Checo Joshua Active FLUCONAZOLE 150 MG ORAL TABLET take 1 tab po qday once FLUCONAZOLE 93485397652 No Longer Active Dangelo Rangel MD Acti ve CIPRO 500 MG ORAL TABLET 1 tablet by mouth twice daily CIPROFLOXACIN HCL 62668927513 No Longer Active Dangelo Rangel MD Active PYRIDIUM 200 MG ORAL TABLET take 1 tab po TID prn urinary pain. PYRIDIUM 200 MG ORAL TABLET 7676881 PHENAZOPYRIDINE HCL Inactive PERCOCET 5-325 MG ORAL TABLET 1 tablet by mouth every 6 hour s as needed PERCOCET 5-325 MG ORAL TABLET 2710995 OXYCODONE-ACETAMINOPHEN Inactive ZOFRAN ODT 4 MG ORAL TABLET DISINTEGRATING 1 po q6hr PRN Nausea ZOFRAN ODT 4 MG ORAL TABLET DISINTEGRATING 524568 ONDAN SETRON Inactive FOCALIN XR 15 MG [...] for pain PERCOCET 10-325 MG ORAL TABLET 5099742 OXYCODONE-ACETAMI NOPHEN Inactive FOCALIN XR 10 MG ORAL CAPSULE EXTENDED RELEASE 24 HOUR 1 po q a. m. FOCALIN XR 10 MG ORAL CAPSULE EXTENDED RELEASE 24 HOUR DEXMETHYLPHENIDATE HCL Inactive CEFDINIR 300 MG ORAL CAPSULE 1 po bid CEFDINI R 300 MG ORAL CAPSULE 248914 CEFDINIR Inactive ANTIPYRINE-BENZOCAINE 5.4-1.4 % OTIC SOLUTION 1-2 drops in affec yohannes ear ANTIPYRINE-BENZOCAINE 5.4-1.4 % OTIC SOLUTION BENZOCAINE-ANTIPYRINE Inactive FLONASE 50 MCG/ACT NASAL SUSPENSION 1 spray each nostril am and hs FLONASE 50 MCG/ACT NASAL SUSPENSION 2518646 FLUTICASONE PROPIONATE I nactive PHENERGAN CREAM* 25mg applied to wrist q6hr PRN Nausea PHENERGAN CREAM* Inactive FIORICET 325-50-40 MG TAB 1 tablet by mouth four times daily as needed FIORICET 325-50-40 MG TAB ACETAMINOPHEN-C AFF-BUTALBITAL Inactive TRAZODONE HCL 100 MG ORAL TABLET 0.5 to 1 po qHS PRN Insomnia 20 30/07/08 TRAZODONE HCL 100 MG ORAL TABLET 692494 TRAZODONE HCL Inactive CONCERTA 18 MG ORAL [...] cough HYDROCODONE-ACETAMINOPHEN 5-325 MG ORAL TABLET 8 09614 HYDROCODONE-ACETAMINOPHEN Inactive PHENAZOPYRIDINE HCL 200 MG ORAL TABLET take 1 tab po TID for bladder pain PHENAZOPYRIDINE HCL 200 MG ORAL TABLET 3564144 PHENAZOPYRIDINE HCL Inactive HYDROCODONE-ACETAMINOPHEN 5-325 MG ORAL TABLET 1 po q 6hr PRN Pa in HYDROCODONE-ACETAMINOPHEN 5-325 MG ORAL TABLET 677265 HYDROCODONE-ACETAMINOPHEN Inactive CELEXA 20 MG ORAL TABLET 1 tablet by mouth daily 09/26 CELEXA 20 MG ORAL TABLET 750909 CITALOPRAM HYDROBROMIDE Inactive REGLAN 10 MG ORAL TABLET 1 po TID PRN Nausea 3 REGLAN 10 MG ORAL TABLET 638833 METOCLOPRAMIDE HCL Inactive LAMISIL 250 MG ORAL TABLET 1 po qd L AMISIL 250 MG ORAL TABLET 632499 TERBINAFINE HCL Inactive DICLOFENAC SODIUM 75 MG ORAL TABLET DELAYED RELEASE 1 tablet by mouth twice daily PRN Knee pain DICLOFENAC SODIUM 75 MG ORAL TABLET DELAYED RELEASE 793660 DICLOFENAC SODIUM Inactive METOCLOPRAMIDE HCL 10 MG ORAL TABLET take one PO tid PRN nausea METOCLOPRAMIDE HCL 10 MG ORAL TABLET 665356 METOCLOPRAM ZACH HCL Inactive TERBINAFINE HCL 250 MG ORAL TABLET take one table PO one time da moises TERBINAFINE HCL 250 MG ORAL TABLET 786066 TERBINAFINE H CL Inactive BUPROPION HCL ER [...] SICKNESS 25 M G ORAL TABLET CHEWABLE 444723 MECLIZINE HCL Inactive SUMATRIPTAN SUCCINATE 100 MG ORAL TABLET Take one PRN for migran e SUMATRIPTAN SUCCINATE 100 MG ORAL TABLET 967608 SUMATRIPTAN SUCCINATE Inactive COMPRO 25 MG RECTAL SUPPOSITORY insert or apply one garza ppository rectally as directed every 12 hours as needed for nausea COMPRO 25 MG RECTAL SUPPOSITORY 315595 PROCHLORPERAZINE Inactive ONDANSETRON 8 MG ORAL TABLET DISINTEGRATING place one tablet on tongue and allow to dissolve every 6 hours as needed for vomitting ONDANSETRON 8 MG ORAL TABLET DISINTEGRATING 808881 ONDANSETRON Inactive HYDROCODONE-ACETAMINOPHEN 5-325 MG ORAL TABLET 0.5 to 1 tab by mouth every 6 hours as needed HYDROCODONE-ACETAMIN OPHEN 5-325 MG ORAL TABLET 013859 HYDROCODONE-ACETAMINOPHEN Inactive BACTRIM DS 800-160 MG ORAL TABLET 1 tab by mouth twice daily 201 11/23/03 BACTRIM DS 800-160 MG ORAL TABLET 582000 TRIMETHOPRIM-SULFAMETHOXAZOLE Inactive DIFLUCAN 150 MG ORAL TABLET 1 tablet by mouth if neede d, hold until symptoms start DIFLUCAN 150 MG ORAL TABLET 169130 FLUCONAZ OLE Inactive IBUPROFEN 800 MG ORAL TABLET 1 tab every 8 hours with food 03/20 IBUPROFEN 800 MG ORAL TABLET 165070 IBUPROFEN Krupa ctive HYDROCODONE-ACETAMINOPHEN 5-325 MG ORAL TABLET 1 tab b y mouth every 6 hours as needed HYDROCODONE-ACETAMINOPHEN 5-325 MG ORAL TABLET 833774 HYDROCODONE-ACETAMINOPHEN Inactive BACTROBAN 2 % EXTERNAL CREAM Apply to affected area BID for up to 10 days BACTROBAN 2 % EXTERNAL CREAM 199102 MUPIROCIN CA LCIUM Inactive MAGNESIUM CITRATE 1.745 GM/30ML ORAL SOLUTION 150ml po BID P RN Constipation MAGNESIUM CITRATE 1.745 GM/30ML ORAL SOLUTION 10 51651 MAGNESIUM CITRATE Inactive DIFLUCAN 150 MG ORAL TABLET 1 tablet by mouth qod 2015 DIFLUCAN 150 MG ORAL TABLET 221721 FLUCONAZOLE Inactive BACTRIM DS 800-160 MG ORAL TABLET 1 tab by mouth twice daily 201 6/05/27 BACTRIM DS 800-160 MG ORAL TABLET 748050 TRIMETHOPRIM-SULFAMETHOXAZOLE Inactive CLARITIN 10 MG ORAL TABLET 1 tablet by mouth daily as needed for allergies CLARITIN 10 MG ORAL TABLET 560201 LORATADINE I nactive FLUTICASONE PROPIONATE 50 MCG/ACT NASAL SUSPENSION 2 s prays/nostril qd PRN Congestion/Allergies FLUTICASONE PROPION ATE 50 MCG/ACT NASAL SUSPENSION 4203891 FLUTICASONE PROPIONATE Inactive MIRALAX ORAL POWDER 8.5 to 17g po qd PRN Constipation MIRALAX ORAL POWDER 048688 POLYETHYLENE GLYCOL 3350 Inactive IBUPROFEN 800 MG ORAL TABLET 1 tab every 8 hours as needed for p ain IBUPROFEN 800 MG ORAL TABLET 483117 IBUPROFEN Keyser ctive HYDROCHLOROTHIAZIDE 12.5 MG ORAL CAPSULE 1 po qd PRN Edema 01/10 HYDROCHLOROTHIAZIDE 12.5 MG ORAL CAPSULE 734079 HYDROCH LOROTHIAZIDE Inactive CIPRO 500 MG ORAL TABLET 1 tablet by mouth twice daily CIPRO 500 MG ORAL TABLET 631850 CIPROFLOXACIN HCL Inactive FLUCONAZOLE 150 MG ORAL TABLET take 1 tab po qday once FLUCONAZOLE 150 MG ORAL TABLET 659192 FLUCONAZOLE Inactive ZITHROMAX Z-KARTHIK 250 MG ORAL TABLET 2 today, then 1 daily for 4 d ays ZITHROMAX Z-KARTHIK 250 MG ORAL TABLET 940884 AZITHROMYCIN Inactive PREDNISONE 20 MG ORAL TABLET 2 tabs daily for 3 days, 1 tab daily for 3 days, 1/2 tab daily for 2 days PREDNISONE 20 MG ORAL T ABLET 183489 PREDNISONE Inactive AZITHROMYCIN 250 MG ORAL TABLET 2 po qd x 1 day, then 1 po q d x 4 days AZITHROMYCIN 250 MG ORAL TABLET 870043 AZITHROMY SPARKLE Inactive PREDNISONE 20 MG ORAL TABLET 2 tabs daily for 3 days, 1 tab daily for 3 days, 1/2 tab daily for 2 days PREDNISONE 20 MG ORAL TABLET 068722 PREDNISONE Inactive CEFDINIR 300 MG ORAL CAPSULE by mouth twice a day 2013 CEFDINIR 300 MG ORAL CAPSULE 405983 CEFDINIR Inactive TRIAMCINOLONE ACETONIDE 0.1 % EXTERNAL OINTMENT Apply to affected areas TID for up to 2 weeks TRIAMCINOLONE ACETON ZACH 0.1 % EXTERNAL OINTMENT 2234703 TRIAMCINOLONE ACETONIDE Inactive PREDNISONE 20 MG ORAL TABLET 2 tabs daily for 3 days, 1 tab daily for 3 days, 1/2 tab daily for 2 days PREDNISONE 20 MG ORAL T ABLET 585691 PREDNISONE Inactive BACTRIM DS 800-160 MG ORAL TABLET 1 po BID x 7 days 29/04/10 BACTRIM DS 800-160 MG ORAL TABLET 097672 SULFAMETHOXAZOLE-TRIMETHOP RIM Inactive CIPRO 500 MG ORAL TABLET 1 tablet by mouth twice daily CIPRO 500 MG ORAL TABLET 366909 CIPROFLOXACIN HCL Inactive AZITHROMYCIN 250 MG ORAL TABLET 2 po qd x 1 day, then 1 po q d x 4 days AZITHROMYCIN 250 MG ORAL TABLET 347415 AZITHROMY SPARKLE Inactive FLAGYL 500 MG ORAL TABLET 1 tablet by mouth bid 04/13 FLAGYL 500 MG ORAL TABLET 438068 METRONIDAZOLE Inactive AZITHROMYCIN 250 MG ORAL TABLET 2 po qd x 1 day, then 1 po q d x 4 days AZITHROMYCIN 250 MG ORAL TABLET 596085 AZITHROMY SPARKLE Inactive AMOXICILLIN 500 MG ORAL CAPSULE 2 po BID x 10 days 201 01/15/27 AMOXICILLIN 500 MG ORAL CAPSULE 115823 AMOXICILLIN Inactive AMOXICILLIN 500 MG ORAL CAPSULE 2 po BID x 14 days for H. Pylori AMOXICILLIN 500 MG ORAL CAPSULE 275507 AMOXICILLIN Inactive CLARITHROMYCIN 500 MG ORAL TABLET 1 tab po BID x 14 days CLARITHROMYCIN 500 MG ORAL TABLET 072845 CLARITHROMYCIN Inacti ve FLAGYL 500 MG ORAL TABLET 1 tablet by mouth bid 08/29 FLAGYL 500 MG ORAL TABLET 150876 METRONIDAZOLE Inactive PROTONIX 40 MG ORAL TABLET DELAYED RELEASE 1 pill by m outh daily, for acid reflux PROTONIX 40 MG ORAL TABLET DELAYED RELEAS E 605378 PANTOPRAZOLE SODIUM Inactive Immunizations Vaccine Administration Date [...] ... - Chemistry sodium, serum 138 mmol/L 331-652 5361/06/27 carbon dioxide, venous blood 30.3 mmol/L 21.0-32 [...] dipstick 1+ Negative sodium, serum 139 mmol/L 312-134 6329/11/28 carbon dioxide, venous blood 26.0 mmol/L 21.0-32 [...] Negative Encounters Code Encounter Date Provider Facility CPT-98830 84441-Cop Vst-Est Level III 14:40:49 CDT Paul Hamlin MD [facility] CPT-60117 Level 4 Est. Patient 11:08:43 CDT Checo Conklin MD [facility] CPT-04567 66914-Hog Vst-Est Level III 09:37:41 CDT Dangelo Rangel MD [facility] CPT-42833 Level 4 Est. Patient 08:57:51 PSYCHIATRIC AIDE INSTRUCTOR Checo Conklin MD [facility] CPT-96375 Level 3 Est. Patient 11:24:55 PSYCHIATRIC AIDE INSTRUCTOR Efren almendarez APRN [facility] CPT-11313 Level 3 Est. Patient 13:05:44 CDT Paul Hamlin MD [facility] CPT-11803 Level 3 Est. Patient 11:29:55 CDT Checo Conklin MD [facility] CPT-43412 Level 4 Est. Patient 11:08:12 PSYCHIATRIC AIDE INSTRUCTOR Checo Conklin MD [facility] CPT-29198 Level 4 Est. Patient 16:06:48 PSYCHIATRIC AIDE INSTRUCTOR Checo Conklin MD [facility] CPT-86831 Level 3 Est. Patient 09:11:49 CDT Efren almendarez [facility] CPT-42833 Level 2 Est. Patient 19:53:27 CDT Tanner hill MD [facility] CPT-58437 Level 3 Est. Patient 09:15:34 CDT Efren almendarez [facility] CPT-05596 Level 3 Est. Patient 11:28:51 PSYCHIATRIC AIDE INSTRUCTOR Efren almendarez [facility] CPT-46593 Level 4 Est. Patient 13:55:46 PSYCHIATRIC AIDE INSTRUCTOR Checo Conklin MD [facility] CPT-88864 Level 4 Est. Patient 17:10:53 CDT Checo Conklin MD [facility] CPT-66362 Level 3 Est. Patient 15:56:22 CDT Checo Conklin MD [facility] CPT-02728 Level 3 Est. Patient 15:29:07 CDT Checo Conklin MD [facility] CPT-32826 Level 3 Est. Patient 14:38:41 CDT Checo Conklin MD [facility] CPT-16362 Level 3 Est. Patient 15:22:03 PSYCHIATRIC AIDE INSTRUCTOR Thomas reynolds DO [facility] CPT-14107 Level 3 Est. Patient 13:34:17 PSYCHIATRIC AIDE INSTRUCTOR Checo Conklin MD [facility] CPT-44098 Level 3 Est. Patient 12:29:32 CDT Dangelo arroyo MD [facility] CPT-83868 Level 3 Est. Patient 16:53:02 CDT Checo Conklin MD [facility] CPT-31565 Level 3 Est. Patient 16:37:13 CDT Checo Conklin MD [facility] CPT-77724 Level 3 Est. Patient 16:16:59 CDT Paul Hamlin MD [facility] CPT-89764 Level 3 Est. Patient 14:20:13 CDT Dangelo arroyo MD [facility] CPT-06996 Level 4 Est. Patient 11:29:33 CDT Checo Conklin MD [facility] CPT-07632 Level 3 Est. Patient 17:08:31 CDT Checo Conklin MD [facility] CPT-62275 Level 3 Est. Patient 16:50:42 PSYCHIATRIC AIDE INSTRUCTOR Checo Conklin MD [facility] CPT-58875 Level 4 Est. Patient 09:26:08 PSYCHIATRIC AIDE INSTRUCTOR Checo Conklin MD [facility] CPT-45867 Level 3 Est. Patient 11:37:10 CDT Checo Conklin MD [facility] CPT-66384 Level 4 Est. Patient 14:07:38 CDT Checo Conklin MD [facility] CPT-31799 Level 3 Est. Patient 09:54:41 CDT Checo Conklin MD [facility] CPT-07937 Level 3 Est. Patient 11:10:54 CDT Paul Hamlin MD [facility] CPT-97072 Level 3 Est. Patient 14:16:56 PSYCHIATRIC AIDE INSTRUCTOR Checo Conklin MD [facility] CPT-45658 Level 3 Est. Patient 11:04:11 PSYCHIATRIC AIDE INSTRUCTOR Checo Conklin MD [facility] CPT-12038 Level 3 Est. Patient 17:09:26 CDT Dangelo arroyo MD [facility] CPT-36179 Level 3 Est. Patient 16:54:37 CDT Checo Conklin MD [facility] Procedures Code Procedure Name Date Entry Date Standard Desc ription CPT-32782 Wrist, right, comp 3V - XRAY USE ONLY 09:24:31 CDT CPT-47646 Abd compl w upright - XRAY USE ONLY 1 1:36:54 PSYCHIATRIC AIDE INSTRUCTOR CPT-77201 UA w micro - LAB USE ONLY 17:06:46 CDT 2015 CPT-46467 [facility] Qual - LAB USE ONLY 17:06:46 CDT 05/06 CPT-58797 CMP - LAB USE ONLY 17:06:46 CDT CPT-36292 CBC with Diff - LAB USE ONLY 17:06:45 CDT 2 CPT-53595 Venipuncture Draw Fee 17:06:45 CDT CPT-LR Lesion Removal 19:53:27 CDT CPT-OV Office Visit 11:31:28 CDT CPT-64891 Tubersol 09:39:29 CDT CPT-J2550 Phenergan 25 mg (Promethazine) 13:59:02 PSYCHIATRIC AIDE INSTRUCTOR CPT-J1885 Toradol 60 mg (Ketorolac) 13:59:02 PSYCHIATRIC AIDE INSTRUCTOR 2012
--- OUTSIDE RECORDS SUMMARY | 2019-09-29 01:51 | XMS REPORT | Clinical Summary ---
Author Author Admin, Bethany Ayala [facility] Address Unknown Phone Unavailable Allergies, Adverse [...] Conklin MD Abdominal pain, generalized ICD-789.07 Inactive Chceo Conklin MD Urinary frequency ICD-788.41 Ozzy Conklin MD Sinusitis, acute ICD-461.9 Inactive Checo Ortiz MD Repeated falls ICD-781.99 Ozzy ngo MD Abdominal pain, generalized ICD-789.07 Inactive Checo Conklin MD Nausea ICD-787.02 Ozzy Conklin MD 201 02/15/12 Medication List Medication Instructions Start Date Stop Date Generic Name NDC Status Provider Patient Instruction HYDROCHLOROTHIAZIDE 12.5 MG ORAL CAPSULE 1 po qd PRN Edema HYDROCHLOROTHIAZIDE [id number] Active Checo Conklin MD Ac tive IBUPROFEN 800 MG ORAL TABLET 1 tab every 8 hours as needed for p ain IBUPROFEN 31255601249 Active Dangelo Rangel MD Acti ve PAROXETINE HCL 40 MG ORAL TABLET 1 po qd PAR OXETINE HCL 92859928674 Active Checo Conklin MD Active MIRALAX ORAL POWDER 8.5 to 17g po qd PRN Constipation POLYETHYLENE GLYCOL 3350 37019495283 No Longer Active Checo Conklin MD Active PROTONIX 40 MG ORAL TABLET DELAYED RELEASE 1 pill by [facility] daily, for acid reflux PANTOPRAZOLE SODIUM 97774244855 No Longer Activ e Corry Méndez LPN Active FLAGYL 500 MG ORAL TABLET 1 tablet by mouth bid 08/29 METRONIDAZOLE 04738055105 No Longer Active Corry Méndez LPN Active CLARITHROMYCIN 500 MG ORAL TABLET 1 tab po BID x 14 days CLARITHROMYCIN 21511787372 No Longer Active Corry Méndez LPN Active AMOXICILLIN 500 MG ORAL CAPSULE 2 po BID x 14 days for H. Pylori AMOXICILLIN 76166095376 No Longer Active Corry Méndez LPN Active FLUTICASONE PROPIONATE 50 MCG/ACT NASAL SUSPENSION 2 s prays/nostril qd PRN Congestion/Allergies FLUTICASONE PROPIONATE 3790692481 9 No Longer Active Checo Conklin MD Active AMOXICILLIN 500 MG ORAL CAPSULE 2 po BID x 10 days 201 01/15/27 AMOXICILLIN 13017829181 No Longer Active Checo Conklin MD Activ e CLARITIN 10 MG ORAL TABLET 1 tablet by mouth daily as needed for allergies LORATADINE 84699080079 No Longer Active Checo Ortiz MD Active BACTRIM DS 800-160 MG ORAL TABLET 1 tab by mouth twice daily 201 12/19/26 TRIMETHOPRIM-SULFAMETHOXAZOLE 67160289609 No Longer Active Ragini Carrillo MD Active DIFLUCAN 150 MG ORAL TABLET 1 tablet by mouth qod 2015 FLUCONAZOLE 98684103165 No Longer Active Efren Medel APRN Act mike AZITHROMYCIN 250 MG ORAL TABLET 2 po qd x 1 day, then 1 po q d x 4 days AZITHROMYCIN 87142128762 No Longer Active Efren flores APRN Active FLAGYL 500 MG ORAL TABLET 1 tablet by mouth bid 04/13 METRONIDAZOLE 40101592966 No Longer Active Checo Conklin MD Acti ve FOCALIN XR 10 MG ORAL CAPSULE EXTENDED RELEASE 24 HOUR 1 po q a.m. DEXMETHYLPHENIDATE HCL 27891446437 Active Checo Conklin MD Active MAGNESIUM CITRATE 1.745 GM/30ML ORAL SOLUTION 150ml po BID P RN Constipation MAGNESIUM CITRATE 03545632686 No Longer Active Checo Conklin MD Active BACTROBAN 2 % EXTERNAL CREAM Apply to affected area BID for up to 10 days MUPIROCIN CALCIUM 35615000091 No Longer Active Checo Conklin MD Active HYDROCODONE-ACETAMINOPHEN 5-325 MG ORAL TABLET 1 tab b y mouth every 6 hours as needed HYDROCODONE-ACETAMINOPHEN 68261311091 No Longer Active Checo Conklin MD Active IBUPROFEN 800 MG ORAL TABLET 1 tab every 8 hours with food 03/20 IBUPROFEN 42712186557 No Longer Active Checo Conklin MD Active DIFLUCAN 150 MG ORAL TABLET 1 tablet by mouth if neede d, hold until symptoms start FLUCONAZOLE 92636229329 No Longer Active Checo Conklin MD Active BACTRIM DS 800-160 MG ORAL TABLET 1 tab by mouth twice daily 201 11/23/03 TRIMETHOPRIM-SULFAMETHOXAZOLE 61207045261 No Longer Active Bonnie Méndez LPN Active HYDROCODONE-ACETAMINOPHEN 5-325 MG ORAL TABLET 0.5 to 1 tab by mouth every 6 hours as needed HYDROCODONE-ACETAMINOPHEN 47636955215 No Longer Active Checo Conklin MD Active ONDANSETRON 8 MG ORAL TABLET DISINTEGRATING place one tablet on tongue and allow to dissolve every 6 hours as needed for vomitting ONDANSETRON 59815657482 No Longer Active Checo Conklin MD Activ e COMPRO 25 MG RECTAL SUPPOSITORY insert or apply one garza ppository rectally as directed every 12 hours as needed for nausea PROCHLORPERAZINE 06734369876 No Longer Active Checo Conklin MD A ctive SUMATRIPTAN SUCCINATE 100 MG ORAL TABLET Take one PRN for migran e SUMATRIPTAN SUCCINATE 16752608036 No Longer Active Checo Conklin MD Active TRAVEL SICKNESS 25 MG ORAL TABLET CHEWABLE chew and sw allow one tablet every 6 hours as needed MECLIZINE HCL 75122363261 No Longer A ctive Checo Conklin MD Active BUPROPION HCL ER (SR) 100 MG ORAL TABLET EXTENDED RELE ASE 12 HOUR take one tablet by mouth one time daily for one week then take 1 two times daily BUPROPION HCL 38833621364 No Longer Active Checo gallagher MD Active TERBINAFINE HCL 250 MG ORAL TABLET take one table PO one time da moises TERBINAFINE HCL 35560276599 No Longer Active Checo Conklin MD Active METOCLOPRAMIDE HCL 10 MG ORAL TABLET take one PO tid PRN nausea METOCLOPRAMIDE HCL 73771689811 No Longer Active Checo Conklin MD Active DICLOFENAC SODIUM 75 MG ORAL TABLET DELAYED RELEASE 1 tablet by mouth twice daily PRN Knee pain DICLOFENAC SODIUM 42065170942 No Longer Active Checo Conklin MD Active LAMISIL 250 MG ORAL TABLET 1 po qd TERBINAFI NE HCL 06101642603 No Longer Active Checo Conklin MD Active REGLAN 10 MG ORAL TABLET 1 po TID PRN Nausea 3 METOCLOPRAMIDE HCL 99371007838 No Longer Active Checo Conklin MD Active CELEXA 20 MG ORAL TABLET 1 tablet by mouth daily 09/26 CITALOPRAM HYDROBROMIDE 94350584376 No Longer Active Checo Conklin MD Active AZITHROMYCIN 250 MG ORAL TABLET 2 po qd x 1 day, then 1 po q d x 4 days AZITHROMYCIN 91769320067 No Longer Active Checo Ortiz MD Active HYDROCODONE-ACETAMINOPHEN 5-325 MG ORAL TABLET 1 po q 6hr PRN Pa in HYDROCODONE-ACETAMINOPHEN 14262576946 No Longer Active Lenora Conklin MD Active PHENAZOPYRIDINE HCL 200 MG ORAL TABLET take 1 tab po TID for bladder pain PHENAZOPYRIDINE HCL 82399901776 No Longer Active Joe Conklin MD Active CIPRO 500 MG ORAL TABLET 1 tablet by mouth twice daily CIPROFLOXACIN HCL 39604612607 No Longer Active Dangelo Rangel MD Active HYDROCODONE-ACETAMINOPHEN 5-325 MG ORAL TABLET 1/2 to 1 po q 4 hours prn cough HYDROCODONE-ACETAMINOPHEN 84010104457 No Longer Activ e Dangelo Rangel MD Active BACTRIM DS 800-160 MG ORAL TABLET 1 po BID x 7 days 29/04/10 SULFAMETHOXAZOLE-TRIMETHOPRIM 77434763488 No Longer Active Checo Coknlin MD Active PREDNISONE 20 MG ORAL TABLET 2 tabs daily for 3 days, 1 tab daily for 3 days, 1/2 tab daily for 2 days PREDNISONE 10275159090 No Longer Active Checo Conklin MD Active TRIAMCINOLONE ACETONIDE 0.1 % EXTERNAL OINTMENT Apply to affected areas TID for up to 2 weeks TRIAMCINOLONE ACETONIDE 76794496437 No Longer Active Checo Conklin MD Active CEFDINIR 300 MG ORAL CAPSULE by mouth twice a day 2013 CEFDINIR 99200343467 No Longer Active Dangelo Rangel MD Acti ve BUPROPION HCL ER (SMOKING DET) 150 MG ORAL TABLET EXTE NDED RELEASE 12 HOUR 1 a day for 1 week then 1 twice a day BUPROPION HCL (SMOKING DETER) 10669348306 No Longer Active Checo Conklin MD Active SIMVASTATIN 20 MG ORAL TABLET 1 po qd SIMVASTAT IN 26779050804 Active Checo Conklin MD Active CHANTIX STARTING MONTH KARTHIK 0.5 MG X 11 & 1 MG X 42 ORA L TABLET 0.5mg daily for 3 days, then 0.5mg BID for 4 days, then 1mg BID VARENICLINE TARTRATE 77105388240 No Longer Active Checo Conklin MD Activ e XANAX 0.5 MG ORAL TABLET 1 po BID PRN anxiety A LPRAZOLAM 24876903124 Active Thomas Marks DO Active CONCERTA 18 MG ORAL TABLET EXTENDED RELEASE 1 po q a.m. METHYLPHENIDATE HCL 11153070627 No Longer Active Checo Conklin MD Active AMBIEN 5 MG ORAL TABLET 1 po qHS PRN Insomnia Z OLPIDEM TARTRATE 97167525684 Active Thomas Marks DO Active TRAZODONE HCL 100 MG ORAL TABLET 0.5 to 1 po qHS PRN Insomnia 20 30/07/08 TRAZODONE HCL 31668703011 No Longer Active Checo Conklin MD Active FIORICET 325-50-40 MG TAB 1 tablet by mouth four times daily as needed [id number] 06030163863 No Longer Active Checo oCnklin MD Active PHENERGAN CREAM* 25mg applied to wrist q6hr PRN Nausea PHENERGAN CREAM* No Longer Active Checo Gonzales ctive FLONASE 50 MCG/ACT NASAL SUSPENSION 1 spray each nostril am and hs FLUTICASONE PROPIONATE 73209279223 No Longer Active Checo Conklin MD Active ANTIPYRINE-BENZOCAINE 5.4-1.4 % OTIC SOLUTION 1-2 drops in affec yohannes ear BENZOCAINE-ANTIPYRINE 21100264408 No Longer Active Checo Conklin MD Active CEFDINIR 300 MG ORAL CAPSULE 1 po bid CEFDINIR 24806574496 No Longer Active Checo Conklin MD Active PREDNISONE 20 MG ORAL TABLET 2 tabs daily for 3 days, 1 tab daily for 3 days, 1/2 tab daily for 2 days PREDNISONE 22626705153 No Longer Active Checo Conklin MD Active AZITHROMYCIN 250 MG ORAL TABLET 2 po qd x 1 day, then 1 po q d x 4 days AZITHROMYCIN 50090402015 No Longer Active Checo Ortiz MD Active PREDNISONE 20 MG ORAL TABLET 2 tabs daily for 3 days, 1 tab daily for 3 days, 1/2 tab daily for 2 days PREDNISONE 81862145184 No Longer Active Checo Conklin MD Active ZITHROMAX Z-KARTHIK 250 MG ORAL TABLET 2 today, then 1 daily for 4 d ays AZITHROMYCIN 71125877851 No Longer Active Paul Hamlin MD Active FOCALIN XR 10 MG ORAL CAPSULE EXTENDED RELEASE 24 HOUR 1 po q a. m. DEXMETHYLPHENIDATE HCL 45378740917 No Longer Active Paul Hamlin MD Active PERCOCET 10-325 MG ORAL TABLET 1 tablet every 6 hours as needed for pain OXYCODONE-ACETAMINOPHEN 50493248953 No Longer Active Paul Hamlin MD Active LORTAB 5-500 MG ORAL TABLET 1/2 to 1 tablet by mouth e very 4 hours as needed for pain HYDROCODONE-ACETAMINOPHEN 08248061346 No Longer Active Checo Conklin MD Active FOCALIN XR 15 MG ORAL CAPSULE EXTENDED RELEASE 24 HOUR 1 po q a. m. DEXMETHYLPHENIDATE HCL 64958077659 No Longer Active Checo Conklin MD Active ZOFRAN ODT 4 MG ORAL TABLET DISINTEGRATING 1 po q6hr PRN Nausea ONDANSETRON 40867743186 No Longer Active Chceo Conklin MD Active PERCOCET 5-325 MG ORAL TABLET 1 tablet by mouth every 6 hour s as needed OXYCODONE-ACETAMINOPHEN 26889167969 No Longer Active Checo Conklin MD Active PYRIDIUM 200 MG ORAL TABLET take 1 tab po TID prn urinary pain. PHENAZOPYRIDINE HCL 79566267753 No Longer Active Checo Joshua Active FLUCONAZOLE 150 MG ORAL TABLET take 1 tab po qday once FLUCONAZOLE 17746749341 No Longer Active Dangelo Rangel MD Acti ve CIPRO 500 MG ORAL TABLET 1 tablet by mouth twice daily CIPROFLOXACIN HCL 45016678630 No Longer Active Dangelo Rangel MD Active PYRIDIUM 200 MG ORAL TABLET take 1 tab po TID prn urinary pain. PYRIDIUM 200 MG ORAL TABLET 1440393 PHENAZOPYRIDINE HCL Inactive PERCOCET 5-325 MG ORAL TABLET 1 tablet by mouth every 6 hour s as needed PERCOCET 5-325 MG ORAL TABLET 7721210 OXYCODONE-ACETAMINOPHEN Inactive ZOFRAN ODT 4 MG ORAL TABLET DISINTEGRATING 1 po q6hr PRN Nausea ZOFRAN ODT 4 MG ORAL TABLET DISINTEGRATING 712567 ONDAN SETRON Inactive FOCALIN XR 15 MG [...] for pain PERCOCET 10-325 MG ORAL TABLET 3209145 OXYCODONE-ACETAMI NOPHEN Inactive FOCALIN XR 10 MG ORAL CAPSULE EXTENDED RELEASE 24 HOUR 1 po q a. m. FOCALIN XR 10 MG ORAL CAPSULE EXTENDED RELEASE 24 HOUR DEXMETHYLPHENIDATE HCL Inactive CEFDINIR 300 MG ORAL CAPSULE 1 po bid CEFDINI R 300 MG ORAL CAPSULE 066776 CEFDINIR Inactive ANTIPYRINE-BENZOCAINE 5.4-1.4 % OTIC SOLUTION 1-2 drops in affec yohannes ear ANTIPYRINE-BENZOCAINE 5.4-1.4 % OTIC SOLUTION BENZOCAINE-ANTIPYRINE Inactive FLONASE 50 MCG/ACT NASAL SUSPENSION 1 spray each nostril am and hs FLONASE 50 MCG/ACT NASAL SUSPENSION 3700149 FLUTICASONE PROPIONATE I nactive PHENERGAN CREAM* 25mg applied to wrist q6hr PRN Nausea PHENERGAN CREAM* Inactive FIORICET 325-50-40 MG TAB 1 tablet by mouth four times daily as needed FIORICET 325-50-40 MG TAB ACETAMINOPHEN-C AFF-BUTALBITAL Inactive TRAZODONE HCL 100 MG ORAL TABLET 0.5 to 1 po qHS PRN Insomnia 20 30/07/08 TRAZODONE HCL 100 MG ORAL TABLET 057809 TRAZODONE HCL Inactive CONCERTA 18 MG ORAL [...] cough HYDROCODONE-ACETAMINOPHEN 5-325 MG ORAL TABLET 8 49560 HYDROCODONE-ACETAMINOPHEN Inactive PHENAZOPYRIDINE HCL 200 MG ORAL TABLET take 1 tab po TID for bladder pain PHENAZOPYRIDINE HCL 200 MG ORAL TABLET 8132104 PHENAZOPYRIDINE HCL Inactive HYDROCODONE-ACETAMINOPHEN 5-325 MG ORAL TABLET 1 po q 6hr PRN Pa in HYDROCODONE-ACETAMINOPHEN 5-325 MG ORAL TABLET 710406 HYDROCODONE-ACETAMINOPHEN Inactive CELEXA 20 MG ORAL TABLET 1 tablet by mouth daily 09/26 CELEXA 20 MG ORAL TABLET 181154 CITALOPRAM HYDROBROMIDE Inactive REGLAN 10 MG ORAL TABLET 1 po TID PRN Nausea 3 REGLAN 10 MG ORAL TABLET 455886 METOCLOPRAMIDE HCL Inactive LAMISIL 250 MG ORAL TABLET 1 po qd L AMISIL 250 MG ORAL TABLET 573755 TERBINAFINE HCL Inactive DICLOFENAC SODIUM 75 MG ORAL TABLET DELAYED RELEASE 1 tablet by mouth twice daily PRN Knee pain DICLOFENAC SODIUM 75 MG ORAL TABLET DELAYED RELEASE 012108 DICLOFENAC SODIUM Inactive METOCLOPRAMIDE HCL 10 MG ORAL TABLET take one PO tid PRN nausea METOCLOPRAMIDE HCL 10 MG ORAL TABLET 569868 METOCLOPRAM ZACH HCL Inactive TERBINAFINE HCL 250 MG ORAL TABLET take one table PO one time da moises TERBINAFINE HCL 250 MG ORAL TABLET 723799 TERBINAFINE H CL Inactive BUPROPION HCL ER [...] SICKNESS 25 M G ORAL TABLET CHEWABLE 143105 MECLIZINE HCL Inactive SUMATRIPTAN SUCCINATE 100 MG ORAL TABLET Take one PRN for migran e SUMATRIPTAN SUCCINATE 100 MG ORAL TABLET 442061 SUMATRIPTAN SUCCINATE Inactive COMPRO 25 MG RECTAL SUPPOSITORY insert or apply one garza ppository rectally as directed every 12 hours as needed for nausea COMPRO 25 MG RECTAL SUPPOSITORY 703206 PROCHLORPERAZINE Inactive ONDANSETRON 8 MG ORAL TABLET DISINTEGRATING place one tablet on tongue and allow to dissolve every 6 hours as needed for vomitting ONDANSETRON 8 MG ORAL TABLET DISINTEGRATING 116260 ONDANSETRON Inactive HYDROCODONE-ACETAMINOPHEN 5-325 MG ORAL TABLET 0.5 to 1 tab by mouth every 6 hours as needed HYDROCODONE-ACETAMIN OPHEN 5-325 MG ORAL TABLET 627623 HYDROCODONE-ACETAMINOPHEN Inactive BACTRIM DS 800-160 MG ORAL TABLET 1 tab by mouth twice daily 201 11/23/03 BACTRIM DS 800-160 MG ORAL TABLET 008140 TRIMETHOPRIM-SULFAMETHOXAZOLE Inactive DIFLUCAN 150 MG ORAL TABLET 1 tablet by mouth if neede d, hold until symptoms start DIFLUCAN 150 MG ORAL TABLET 856441 FLUCONAZ OLE Inactive IBUPROFEN 800 MG ORAL TABLET 1 tab every 8 hours with food 03/20 IBUPROFEN 800 MG ORAL TABLET 558867 IBUPROFEN Rkupa ctive HYDROCODONE-ACETAMINOPHEN 5-325 MG ORAL TABLET 1 tab b y mouth every 6 hours as needed HYDROCODONE-ACETAMINOPHEN 5-325 MG ORAL TABLET 953475 HYDROCODONE-ACETAMINOPHEN Inactive BACTROBAN 2 % EXTERNAL CREAM Apply to affected area BID for up to 10 days BACTROBAN 2 % EXTERNAL CREAM 622517 MUPIROCIN CA LCIUM Inactive MAGNESIUM CITRATE 1.745 GM/30ML ORAL SOLUTION 150ml po BID P RN Constipation MAGNESIUM CITRATE 1.745 GM/30ML ORAL SOLUTION 10 94106 MAGNESIUM CITRATE Inactive DIFLUCAN 150 MG ORAL TABLET 1 tablet by mouth qod 2015 DIFLUCAN 150 MG ORAL TABLET 293288 FLUCONAZOLE Inactive BACTRIM DS 800-160 MG ORAL TABLET 1 tab by mouth twice daily 201 12/19/26 BACTRIM DS 800-160 MG ORAL TABLET 911921 TRIMETHOPRIM-SULFAMETHOXAZOLE Inactive CLARITIN 10 MG ORAL TABLET 1 tablet by mouth daily as needed for allergies CLARITIN 10 MG ORAL TABLET 174239 LORATADINE I nactive FLUTICASONE PROPIONATE 50 MCG/ACT NASAL SUSPENSION 2 s prays/nostril qd PRN Congestion/Allergies FLUTICASONE PROPION ATE 50 MCG/ACT NASAL SUSPENSION 7414263 FLUTICASONE PROPIONATE Inactive MIRALAX ORAL POWDER 8.5 to 17g po qd PRN Constipation MIRALAX ORAL POWDER 386783 POLYETHYLENE GLYCOL 3350 Inactive CIPRO 500 MG ORAL TABLET 1 tablet by mouth twice daily CIPRO 500 MG ORAL TABLET 534843 CIPROFLOXACIN HCL Inactive FLUCONAZOLE 150 MG ORAL TABLET take 1 tab po qday once FLUCONAZOLE 150 MG ORAL TABLET 672834 FLUCONAZOLE Inactive ZITHROMAX Z-KARTHIK 250 MG ORAL TABLET 2 today, then 1 daily for 4 d ays ZITHROMAX Z-KARTHIK 250 MG ORAL TABLET 953199 AZITHROMYCIN Inactive PREDNISONE 20 MG ORAL TABLET 2 tabs daily for 3 days, 1 tab daily for 3 days, 1/2 tab daily for 2 days PREDNISONE 20 MG ORAL T ABLET 473948 PREDNISONE Inactive AZITHROMYCIN 250 MG ORAL TABLET 2 po qd x 1 day, then 1 po q d x 4 days AZITHROMYCIN 250 MG ORAL TABLET 179393 AZITHROMY SPARKLE Inactive PREDNISONE 20 MG ORAL TABLET 2 tabs daily for 3 days, 1 tab daily for 3 days, 1/2 tab daily for 2 days PREDNISONE 20 MG ORAL TABLET 079694 PREDNISONE Inactive CEFDINIR 300 MG ORAL CAPSULE by mouth twice a day 2013 CEFDINIR 300 MG ORAL CAPSULE 973137 CEFDINIR Inactive TRIAMCINOLONE ACETONIDE 0.1 % EXTERNAL OINTMENT Apply to affected areas TID for up to 2 weeks TRIAMCINOLONE ACETON ZACH 0.1 % EXTERNAL OINTMENT 1466248 TRIAMCINOLONE ACETONIDE Inactive PREDNISONE 20 MG ORAL TABLET 2 tabs daily for 3 days, 1 tab daily for 3 days, 1/2 tab daily for 2 days PREDNISONE 20 MG ORAL T ABLET 625214 PREDNISONE Inactive BACTRIM DS 800-160 MG ORAL TABLET 1 po BID x 7 days 29/04/10 BACTRIM DS 800-160 MG ORAL TABLET 564290 SULFAMETHOXAZOLE-TRIMETHOP RIM Inactive CIPRO 500 MG ORAL TABLET 1 tablet by mouth twice daily CIPRO 500 MG ORAL TABLET 438773 CIPROFLOXACIN HCL Inactive AZITHROMYCIN 250 MG ORAL TABLET 2 po qd x 1 day, then 1 po q d x 4 days AZITHROMYCIN 250 MG ORAL TABLET 637404 AZITHROMY SPARKLE Inactive FLAGYL 500 MG ORAL TABLET 1 tablet by mouth bid 04/13 FLAGYL 500 MG ORAL TABLET 523458 METRONIDAZOLE Inactive AZITHROMYCIN 250 MG ORAL TABLET 2 po qd x 1 day, then 1 po q d x 4 days AZITHROMYCIN 250 MG ORAL TABLET 244947 AZITHROMY SPARKLE Inactive AMOXICILLIN 500 MG ORAL CAPSULE 2 po BID x 10 days 201 01/15/27 AMOXICILLIN 500 MG ORAL CAPSULE 971740 AMOXICILLIN Inactive AMOXICILLIN 500 MG ORAL CAPSULE 2 po BID x 14 days for H. Pylori AMOXICILLIN 500 MG ORAL CAPSULE 541171 AMOXICILLIN Inactive CLARITHROMYCIN 500 MG ORAL TABLET 1 tab po BID x 14 days CLARITHROMYCIN 500 MG ORAL TABLET 046795 CLARITHROMYCIN Inacti ve FLAGYL 500 MG ORAL TABLET 1 tablet by mouth bid 08/29 FLAGYL 500 MG ORAL TABLET 552818 METRONIDAZOLE Inactive PROTONIX 40 MG ORAL TABLET DELAYED RELEASE 1 pill by m outh daily, for acid reflux PROTONIX 40 MG ORAL TABLET DELAYED RELEAS E 625583 PANTOPRAZOLE SODIUM Inactive Immunizations Vaccine Administration Date [...] ... - Chemistry sodium, serum 138 mmol/L [phone]/06/27 carbon dioxide, venous blood 30.3 mmol/L 21.0-32 [...] dipstick 1+ Negative sodium, serum 139 mmol/L 693-069 3845/11/28 carbon dioxide, venous blood 26.0 mmol/L 21.0-32 [...] Negative Encounters Code Encounter Date Provider Facility CPT-80557 Level 4 Est. Patient 11:08:43 CDT Checo Conklin MD [facility] CPT-42621 [id number] Vst-Est Level III 09:37:41 CDT Dangelo Rangel MD [facility] CPT-24318 Level 4 Est. Patient 08:57:51 [employer] Checo Conklin MD [facility] CPT-90894 Level 3 Est. Patient 11:24:55 [employer] Efren almendarez [facility] CPT-32143 Level 3 Est. Patient 13:05:44 CDT Paul Hamlin MD [facility] CPT-24850 Level 3 Est. Patient 11:29:55 CDT Checo Conklin MD [facility] CPT-78807 Level 4 Est. Patient 11:08:12 [employer] Checo Conklin MD [facility] CPT-47819 Level 4 Est. Patient 16:06:48 [employer] Checo Conklin MD [facility] CPT-32836 Level 3 Est. Patient 09:11:49 CDT Efren almendarez [facility] CPT-85664 Level 2 Est. Patient 19:53:27 CDT Tanner hill MD [facility] CPT-67903 Level 3 Est. Patient 09:15:34 CDT Efren almendarez [facility] CPT-91370 Level 3 Est. Patient 11:28:51 [employer] Efren almendarez [facility] CPT-72618 Level 4 Est. Patient 13:55:46 [employer] Checo Conklin MD [facility] CPT-32130 Level 4 Est. Patient 17:10:53 CDT Checo Conklin MD [facility] CPT-29983 Level 3 Est. Patient 15:56:22 CDT Checo Conklin MD [facility] CPT-34296 Level 3 Est. Patient 15:29:07 CDT Checo Conklin MD [facility] CPT-05405 Level 3 Est. Patient 14:38:41 CDT Checo Conklin MD [facility] CPT-41005 Level 3 Est. Patient 15:22:03 [employer] Thomas reynolds DO [facility] CPT-70109 Level 3 Est. Patient 13:34:17 [employer] Checo Conklin MD [facility] CPT-84563 Level 3 Est. Patient 12:29:32 CDT Dangelo arroyo MD [facility] CPT-60966 Level 3 Est. Patient 16:53:02 CDT Checo Conklin MD [facility] CPT-30123 Level 3 Est. Patient 16:37:13 CDT Checo Conklin MD [facility] CPT-41184 Level 3 Est. Patient 16:16:59 CDT Paul Hamlin MD [facility] CPT-18140 Level 3 Est. Patient 14:20:13 CDT Dangelo arroyo MD [facility] CPT-74917 Level 4 Est. Patient 11:29:33 CDT Checo Conklin MD [facility] CPT-13609 Level 3 Est. Patient 17:08:31 CDT Checo Conklin MD [facility] CPT-05089 Level 3 Est. Patient 16:50:42 [employer] Checo Conklin MD [facility] CPT-55564 Level 4 Est. Patient 09:26:08 [employer] Checo Conklin MD [facility] CPT-69135 Level 3 Est. Patient 11:37:10 CDT Checo Conklin MD [facility] CPT-61655 Level 4 Est. Patient 14:07:38 CDT Checo Conklin MD [facility] CPT-69440 Level 3 Est. Patient 09:54:41 CDT Checo Conklin MD [facility] CPT-41334 Level 3 Est. Patient 11:10:54 CDT Paul Hamlin MD [facility] CPT-28942 Level 3 Est. Patient 14:16:56 [employer] Checo Conklin MD [facility] CPT-05572 Level 3 Est. Patient 11:04:11 [employer] Checo Conklin MD [facility] CPT-71480 Level 3 Est. Patient 17:09:26 CDT Dangelo arroyo MD [facility] CPT-95352 Level 3 Est. Patient 16:54:37 CDT Checo Conklin MD [facility] Procedures Code Procedure Name Date Entry Date Standard Desc ription CPT-85357 Wrist, right, comp 3V - XRAY USE ONLY 09:24:31 CDT CPT-30854 Abd compl w upright - XRAY USE ONLY 1 1:36:54 [employer] CPT-77419 UA w micro - LAB USE ONLY 17:06:46 CDT 2015 CPT-46341 BHCG Qual - LAB USE ONLY 17:06:46 CDT 05/06 CPT-07854 CMP - LAB USE ONLY 17:06:46 CDT CPT-84893 CBC with Diff - LAB USE ONLY 17:06:45 CDT 2 CPT-58409 Venipuncture Draw Fee 17:06:45 CDT CPT-LR Lesion Removal 19:53:27 CDT CPT-OV Office Visit 11:31:28 CDT CPT-72699 Tubersol 09:39:29 CDT CPT-J2550 Phenergan 25 mg (Promethazine) 13:59:02 [employer] CPT-J1885 Toradol 60 mg (Ketorolac) 13:59:02 [employer] 2012
--- OUTSIDE RECORDS SUMMARY | 2019-09-29 01:51 | XMS REPORT | Clinical Summary ---
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 07/28 Checo Coknlin MD Other specified gastritis, without menti on [...] RELEASE 1 daily with furosemide POTASSIUM CHLORIDE 00634419936 Active Paul Hamlin MD Active FUROSEMIDE 20 MG ORAL TABLET 1 daily for swelling FUROSEMIDE 52879618772 Active Paul Hamlin MD Active HYDROCHLOROTHIAZIDE 12.5 MG ORAL CAPSULE 1 po qd PRN Edema 01/10 HYDROCHLOROTHIAZIDE 44372298591 No Longer Active Paul Hamlin MD Active IBUPROFEN 800 MG ORAL TABLET 1 tab every 8 hours as needed for p ain IBUPROFEN 94171132412 No Longer Active Paul Hamlin MD Active PAROXETINE HCL 40 MG ORAL TABLET 1 po qd PAR OXETINE HCL 01483192506 Active Checo Conklin MD Active MIRALAX ORAL POWDER 8.5 to 17g po qd PRN Constipation POLYETHYLENE GLYCOL 3350 75809761498 No Longer Active Checo Conklin MD Active PROTONIX 40 MG ORAL TABLET DELAYED RELEASE 1 pill by m outh daily, for acid reflux PANTOPRAZOLE SODIUM 57218087682 No Longer Activ e Corry Méndez LPN Active FLAGYL 500 MG ORAL TABLET 1 tablet by mouth bid 08/29 METRONIDAZOLE 70494968661 No Longer Active Corry Méndez LPN Active CLARITHROMYCIN 500 MG ORAL TABLET 1 tab po BID x 14 days CLARITHROMYCIN 85429611990 No Longer Active Corry Méndez LPN Active AMOXICILLIN 500 MG ORAL CAPSULE 2 po BID x 14 days for H. Pylori AMOXICILLIN 13206148184 No Longer Active Corry Méndez LPN Active FLUTICASONE PROPIONATE 50 MCG/ACT NASAL SUSPENSION 2 s prays/nostril qd PRN Congestion/Allergies FLUTICASONE PROPIONATE 5145039575 9 No Longer Active Checo Conklin MD Active AMOXICILLIN 500 MG ORAL CAPSULE 2 po BID x 10 days 201 01/15/27 AMOXICILLIN 95573859512 No Longer Active Checo Conklin MD Activ e CLARITIN 10 MG ORAL TABLET 1 tablet by mouth daily as needed for allergies LORATADINE 28736805670 No Longer Active Checo Ortiz MD Active BACTRIM DS 800-160 MG ORAL TABLET 1 tab by mouth twice daily 201 12/19/26 TRIMETHOPRIM-SULFAMETHOXAZOLE 71512799735 No Longer Active Ragini Carrillo MD Active DIFLUCAN 150 MG ORAL TABLET 1 tablet by mouth qod 2015 FLUCONAZOLE 65244860585 No Longer Active Efren Medel PASTRY ARTIST Act mike AZITHROMYCIN 250 MG ORAL TABLET 2 po qd x 1 day, then 1 po q d x 4 days AZITHROMYCIN 04426290037 No Longer Active Efren flores PASTRY ARTIST Active FLAGYL 500 MG ORAL TABLET 1 tablet by mouth bid 04/13 METRONIDAZOLE 05455863757 No Longer Active Checo Conklin MD Acti ve FOCALIN XR 10 MG ORAL CAPSULE EXTENDED RELEASE 24 HOUR 1 po q a.m. DEXMETHYLPHENIDATE HCL 62977632148 Active Checo Conklin MD Active MAGNESIUM CITRATE 1.745 GM/30ML ORAL SOLUTION 150ml po BID P RN Constipation MAGNESIUM CITRATE 89380124624 No Longer Active Checo Conklin MD Active BACTROBAN 2 % EXTERNAL CREAM Apply to affected area BID for up to 10 days MUPIROCIN CALCIUM 04917956181 No Longer Active Checo Conklin MD Active HYDROCODONE-ACETAMINOPHEN 5-325 MG ORAL TABLET 1 tab b y mouth every 6 hours as needed HYDROCODONE-ACETAMINOPHEN 66469326696 No Longer Active Checo Conklin MD Active IBUPROFEN 800 MG ORAL TABLET 1 tab every 8 hours with food 03/20 IBUPROFEN 24744460409 No Longer Active Checo Conklin MD Active DIFLUCAN 150 MG ORAL TABLET 1 tablet by mouth if neede d, hold until symptoms start FLUCONAZOLE 75567678369 No Longer Active Checo Conklin MD Active BACTRIM DS 800-160 MG ORAL TABLET 1 tab by mouth twice daily 201 11/23/03 TRIMETHOPRIM-SULFAMETHOXAZOLE 01576284606 No Longer Active K bernice Méndez LPN Active HYDROCODONE-ACETAMINOPHEN 5-325 MG ORAL TABLET 0.5 to 1 tab by mouth every 6 hours as needed HYDROCODONE-ACETAMINOPHEN 94945894683 No Longer Active Checo Conklin MD Active ONDANSETRON 8 MG ORAL TABLET DISINTEGRATING place one tablet on tongue and allow to dissolve every 6 hours as needed for vomitting ONDANSETRON 13481159085 No Longer Active Checo Conklin MD Activ e COMPRO 25 MG RECTAL SUPPOSITORY insert or apply one garza ppository rectally as directed every 12 hours as needed for nausea PROCHLORPERAZINE 74485617703 No Longer Active Checo Conklin MD A ctive SUMATRIPTAN SUCCINATE 100 MG ORAL TABLET Take one PRN for migran e SUMATRIPTAN SUCCINATE 21145475928 No Longer Active Checo Conklin MD Active TRAVEL SICKNESS 25 MG ORAL TABLET CHEWABLE chew and sw allow one tablet every 6 hours as needed MECLIZINE HCL 65724464698 No Longer A ctive Checo Conklin MD Active BUPROPION HCL ER (SR) 100 MG ORAL TABLET EXTENDED RELE ASE 12 HOUR take one tablet by mouth one time daily for one week then take 1 two times daily BUPROPION HCL 81328999974 No Longer Active Checo gallagher MD Active TERBINAFINE HCL 250 MG ORAL TABLET take one table PO one time da moises TERBINAFINE HCL 51433461610 No Longer Active Checo Conklin MD Active METOCLOPRAMIDE HCL 10 MG ORAL TABLET take one PO tid PRN nausea METOCLOPRAMIDE HCL 95621108003 No Longer Active Checo Conklin MD Active DICLOFENAC SODIUM 75 MG ORAL TABLET DELAYED RELEASE 1 tablet by mouth twice daily PRN Knee pain DICLOFENAC SODIUM 87152080508 No Longer Active Checo Conklin MD Active LAMISIL 250 MG ORAL TABLET 1 po qd TERBINAFI NE HCL 12345337998 No Longer Active Checo Conklin MD Active REGLAN 10 MG ORAL TABLET 1 po TID PRN Nausea 3 METOCLOPRAMIDE HCL 39797833444 No Longer Active Checo Conklin MD Active CELEXA 20 MG ORAL TABLET 1 tablet by mouth daily 09/26 CITALOPRAM HYDROBROMIDE 65167887441 No Longer Active Checo Conklin MD Active AZITHROMYCIN 250 MG ORAL TABLET 2 po qd x 1 day, then 1 po q d x 4 days AZITHROMYCIN 12786250618 No Longer Active Checo Ortiz MD Active HYDROCODONE-ACETAMINOPHEN 5-325 MG ORAL TABLET 1 po q 6hr PRN Pa in HYDROCODONE-ACETAMINOPHEN 11732791685 No Longer Active Lenora Conklin MD Active PHENAZOPYRIDINE HCL 200 MG ORAL TABLET take 1 tab po TID for bladder pain PHENAZOPYRIDINE HCL 07776941093 No Longer Active Joe Conklin MD Active CIPRO 500 MG ORAL TABLET 1 tablet by mouth twice daily CIPROFLOXACIN HCL 14538196918 No Longer Active Dangelo Rangel MD Active HYDROCODONE-ACETAMINOPHEN 5-325 MG ORAL TABLET 1/2 to 1 po q 4 hours prn cough HYDROCODONE-ACETAMINOPHEN 47175269509 No Longer Activ e Dangelo Rangel MD Active BACTRIM DS 800-160 MG ORAL TABLET 1 po BID x 7 days 29/04/10 SULFAMETHOXAZOLE-TRIMETHOPRIM 99955455401 No Longer Active Checo Conklin MD Active PREDNISONE 20 MG ORAL TABLET 2 tabs daily for 3 days, 1 tab daily for 3 days, 1/2 tab daily for 2 days PREDNISONE 01468439654 No Longer Active Checo Conklin MD Active TRIAMCINOLONE ACETONIDE 0.1 % EXTERNAL OINTMENT Apply to affected areas TID for up to 2 weeks TRIAMCINOLONE ACETONIDE 77909209456 No Longer Active Checo Conklin MD Active CEFDINIR 300 MG ORAL CAPSULE by mouth twice a day 2013 CEFDINIR 06283003239 No Longer Active Dangelo Rangel MD Acti ve BUPROPION HCL ER (SMOKING DET) 150 MG ORAL TABLET EXTE NDED RELEASE 12 HOUR 1 a day for 1 week then 1 twice a day BUPROPION HCL (SMOKING DETER) 96098904050 No Longer Active Checo Conklin MD Active SIMVASTATIN 20 MG ORAL TABLET 1 po qd SIMVASTAT IN 78203902715 Active Checo Conklin MD Active CHANTIX STARTING MONTH KARTHIK 0.5 MG X 11 & 1 MG X 42 ORA L TABLET 0.5mg daily for 3 days, then 0.5mg BID for 4 days, then 1mg BID VARENICLINE TARTRATE 38875541136 No Longer Active Checo Conklin MD Activ e XANAX 0.5 MG ORAL TABLET 1 po BID PRN anxiety A LPRAZOLAM 12459537517 Active Thomas Marks DO Active CONCERTA 18 MG ORAL TABLET EXTENDED RELEASE 1 po q a.m. METHYLPHENIDATE HCL 75401853430 No Longer Active Checo Conklin MD Active AMBIEN 5 MG ORAL TABLET 1 po qHS PRN Insomnia Z OLPIDEM TARTRATE 55206536907 Active Thomas Marks DO Active TRAZODONE HCL 100 MG ORAL TABLET 0.5 to 1 po qHS PRN Insomnia 20 30/07/08 TRAZODONE HCL 78121099877 No Longer Active Checo Conklin MD Active FIORICET 325-50-40 MG TAB 1 tablet by mouth four times daily as needed [id number] 98949224731 No Longer Active Checo Conklin MD Active PHENERGAN CREAM* 25mg applied to wrist q6hr PRN Nausea PHENERGAN CREAM* No Longer Active Checo Conklin MD A ctive FLONASE 50 MCG/ACT NASAL SUSPENSION 1 spray each nostril am and hs FLUTICASONE PROPIONATE 52327322428 No Longer Active Checo Conklin MD Active ANTIPYRINE-BENZOCAINE 5.4-1.4 % OTIC SOLUTION 1-2 drops in affec yohannes ear BENZOCAINE-ANTIPYRINE 72752734753 No Longer Active Checo Conklin MD Active CEFDINIR 300 MG ORAL CAPSULE 1 po bid CEFDINIR 27227804403 No Longer Active Checo Conklin MD Active PREDNISONE 20 MG ORAL TABLET 2 tabs daily for 3 days, 1 tab daily for 3 days, 1/2 tab daily for 2 days PREDNISONE 28677012883 No Longer Active Checo Conklin MD Active AZITHROMYCIN 250 MG ORAL TABLET 2 po qd x 1 day, then 1 po q d x 4 days AZITHROMYCIN 56903714894 No Longer Active Checo Ortiz MD Active PREDNISONE 20 MG ORAL TABLET 2 tabs daily for 3 days, 1 tab daily for 3 days, 1/2 tab daily for 2 days PREDNISONE 24780844988 No Longer Active Checo Conklin MD Active ZITHROMAX Z-KARTHIK 250 MG ORAL TABLET 2 today, then 1 daily for 4 d ays AZITHROMYCIN 81029240997 No Longer Active Paul Hamlin MD Active FOCALIN XR 10 MG ORAL CAPSULE EXTENDED RELEASE 24 HOUR 1 po q a. m. DEXMETHYLPHENIDATE HCL 60854064018 No Longer Active Paul Hamlin MD Active PERCOCET 10-325 MG ORAL TABLET 1 tablet every 6 hours as needed for pain OXYCODONE-ACETAMINOPHEN 96966068634 No Longer Active Paul Hamlin MD Active LORTAB 5-500 MG ORAL TABLET 1/2 to 1 tablet by mouth e very 4 hours as needed for pain HYDROCODONE-ACETAMINOPHEN 92548199498 No Longer Active Checo Conklin MD Active FOCALIN XR 15 MG ORAL CAPSULE EXTENDED RELEASE 24 HOUR 1 po q a. m. DEXMETHYLPHENIDATE HCL 83321392632 No Longer Active Checo Conklin MD Active ZOFRAN ODT 4 MG ORAL TABLET DISINTEGRATING 1 po q6hr PRN Nausea ONDANSETRON 63474555993 No Longer Active Checo Conklin MD Active PERCOCET 5-325 MG ORAL TABLET 1 tablet by mouth every 6 hour s as needed OXYCODONE-ACETAMINOPHEN 11858724527 No Longer Active Checo Conklin MD Active PYRIDIUM 200 MG ORAL TABLET take 1 tab po TID prn urinary pain. PHENAZOPYRIDINE HCL 06055576127 No Longer Active Checo Joshua Active FLUCONAZOLE 150 MG ORAL TABLET take 1 tab po qday once FLUCONAZOLE 05530848642 No Longer Active Dangelo Rangel MD Acti ve CIPRO 500 MG ORAL TABLET 1 tablet by mouth twice daily CIPROFLOXACIN HCL 85314666032 No Longer Active Dangelo Rangel MD Active PYRIDIUM 200 MG ORAL TABLET take 1 tab po TID prn urinary pain. PYRIDIUM 200 MG ORAL TABLET 7377530 PHENAZOPYRIDINE HCL Inactive PERCOCET 5-325 MG ORAL TABLET 1 tablet by mouth every 6 hour s as needed PERCOCET 5-325 MG ORAL TABLET 3445770 OXYCODONE-ACETAMINOPHEN Inactive ZOFRAN ODT 4 MG ORAL TABLET DISINTEGRATING 1 po q6hr PRN Nausea ZOFRAN ODT 4 MG ORAL TABLET DISINTEGRATING 707760 ONDAN SETRON Inactive FOCALIN XR 15 MG [...] for pain PERCOCET 10-325 MG ORAL TABLET 2650866 OXYCODONE-ACETAMI NOPHEN Inactive FOCALIN XR 10 MG ORAL CAPSULE EXTENDED RELEASE 24 HOUR 1 po q a. m. FOCALIN XR 10 MG ORAL CAPSULE EXTENDED RELEASE 24 HOUR DEXMETHYLPHENIDATE HCL Inactive CEFDINIR 300 MG ORAL CAPSULE 1 po bid CEFDINI R 300 MG ORAL CAPSULE 917205 CEFDINIR Inactive ANTIPYRINE-BENZOCAINE 5.4-1.4 % OTIC SOLUTION 1-2 drops in affec yohannes ear ANTIPYRINE-BENZOCAINE 5.4-1.4 % OTIC SOLUTION BENZOCAINE-ANTIPYRINE Inactive FLONASE 50 MCG/ACT NASAL SUSPENSION 1 spray each nostril am and hs FLONASE 50 MCG/ACT NASAL SUSPENSION 4174945 FLUTICASONE PROPIONATE I nactive PHENERGAN CREAM* 25mg applied to wrist q6hr PRN Nausea PHENERGAN CREAM* Inactive FIORICET 325-50-40 MG TAB 1 tablet by mouth four times daily as needed FIORICET 325-50-40 MG TAB ACETAMINOPHEN-C AFF-BUTALBITAL Inactive TRAZODONE HCL 100 MG ORAL TABLET 0.5 to 1 po qHS PRN Insomnia 20 30/07/08 TRAZODONE HCL 100 MG ORAL TABLET 399135 TRAZODONE HCL Inactive CONCERTA 18 MG ORAL [...] cough HYDROCODONE-ACETAMINOPHEN 5-325 MG ORAL TABLET 8 26453 HYDROCODONE-ACETAMINOPHEN Inactive PHENAZOPYRIDINE HCL 200 MG ORAL TABLET take 1 tab po TID for bladder pain PHENAZOPYRIDINE HCL 200 MG ORAL TABLET 0206137 PHENAZOPYRIDINE HCL Inactive HYDROCODONE-ACETAMINOPHEN 5-325 MG ORAL TABLET 1 po q 6hr PRN Pa in HYDROCODONE-ACETAMINOPHEN 5-325 MG ORAL TABLET 220423 HYDROCODONE-ACETAMINOPHEN Inactive CELEXA 20 MG ORAL TABLET 1 tablet by mouth daily 09/26 CELEXA 20 MG ORAL TABLET 227694 CITALOPRAM HYDROBROMIDE Inactive REGLAN 10 MG ORAL TABLET 1 po TID PRN Nausea 3 REGLAN 10 MG ORAL TABLET 858078 METOCLOPRAMIDE HCL Inactive LAMISIL 250 MG ORAL TABLET 1 po qd L AMISIL 250 MG ORAL TABLET 787500 TERBINAFINE HCL Inactive DICLOFENAC SODIUM 75 MG ORAL TABLET DELAYED RELEASE 1 tablet by mouth twice daily PRN Knee pain DICLOFENAC SODIUM 75 MG ORAL TABLET DELAYED RELEASE 214179 DICLOFENAC SODIUM Inactive METOCLOPRAMIDE HCL 10 MG ORAL TABLET take one PO tid PRN nausea METOCLOPRAMIDE HCL 10 MG ORAL TABLET 999930 METOCLOPRAM ZACH HCL Inactive TERBINAFINE HCL 250 MG ORAL TABLET take one table PO one time da moises TERBINAFINE HCL 250 MG ORAL TABLET 961664 TERBINAFINE H CL Inactive BUPROPION HCL ER [...] SICKNESS 25 M G ORAL TABLET CHEWABLE 312129 MECLIZINE HCL Inactive SUMATRIPTAN SUCCINATE 100 MG ORAL TABLET Take one PRN for migran e SUMATRIPTAN SUCCINATE 100 MG ORAL TABLET 374814 SUMATRIPTAN SUCCINATE Inactive COMPRO 25 MG RECTAL SUPPOSITORY insert or apply one garza ppository rectally as directed every 12 hours as needed for nausea COMPRO 25 MG RECTAL SUPPOSITORY 635888 PROCHLORPERAZINE Inactive ONDANSETRON 8 MG ORAL TABLET DISINTEGRATING place one tablet on tongue and allow to dissolve every 6 hours as needed for vomitting ONDANSETRON 8 MG ORAL TABLET DISINTEGRATING 039635 ONDANSETRON Inactive HYDROCODONE-ACETAMINOPHEN 5-325 MG ORAL TABLET 0.5 to 1 tab by mouth every 6 hours as needed HYDROCODONE-ACETAMIN OPHEN 5-325 MG ORAL TABLET 699345 HYDROCODONE-ACETAMINOPHEN Inactive BACTRIM DS 800-160 MG ORAL TABLET 1 tab by mouth twice daily 201 11/23/03 BACTRIM DS 800-160 MG ORAL TABLET 112960 TRIMETHOPRIM-SULFAMETHOXAZOLE Inactive DIFLUCAN 150 MG ORAL TABLET 1 tablet by mouth if neede d, hold until symptoms start DIFLUCAN 150 MG ORAL TABLET 966753 FLUCONAZ OLE Inactive IBUPROFEN 800 MG ORAL TABLET 1 tab every 8 hours with food 03/20 IBUPROFEN 800 MG ORAL TABLET 799763 IBUPROFEN [place] ctive HYDROCODONE-ACETAMINOPHEN 5-325 MG ORAL TABLET 1 tab b y mouth every 6 hours as needed HYDROCODONE-ACETAMINOPHEN 5-325 MG ORAL TABLET 272288 HYDROCODONE-ACETAMINOPHEN Inactive BACTROBAN 2 % EXTERNAL CREAM Apply to affected area BID for up to 10 days BACTROBAN 2 % EXTERNAL CREAM 484699 MUPIROCIN CA LCIUM Inactive MAGNESIUM CITRATE 1.745 GM/30ML ORAL SOLUTION 150ml po BID P RN Constipation MAGNESIUM CITRATE 1.745 GM/30ML ORAL SOLUTION 10 80413 MAGNESIUM CITRATE Inactive DIFLUCAN 150 MG ORAL TABLET 1 tablet by mouth qod 2015 DIFLUCAN 150 MG ORAL TABLET 782686 FLUCONAZOLE Inactive BACTRIM DS 800-160 MG ORAL TABLET 1 tab by mouth twice daily 201 6/05/27 BACTRIM DS 800-160 MG ORAL TABLET 042697 TRIMETHOPRIM-SULFAMETHOXAZOLE Inactive CLARITIN 10 MG ORAL TABLET 1 tablet by mouth daily as needed for allergies CLARITIN 10 MG ORAL TABLET 546613 LORATADINE I nactive FLUTICASONE PROPIONATE 50 MCG/ACT NASAL SUSPENSION 2 s prays/nostril qd PRN Congestion/Allergies FLUTICASONE PROPION ATE 50 MCG/ACT NASAL SUSPENSION 4169420 FLUTICASONE PROPIONATE Inactive MIRALAX ORAL POWDER 8.5 to 17g po qd PRN Constipation MIRALAX ORAL POWDER 135921 POLYETHYLENE GLYCOL 3350 Inactive IBUPROFEN 800 MG ORAL TABLET 1 tab every 8 hours as needed for p ain IBUPROFEN 800 MG ORAL TABLET 100600 IBUPROFEN [place] ctive HYDROCHLOROTHIAZIDE 12.5 MG ORAL CAPSULE 1 po qd PRN Edema 01/10 HYDROCHLOROTHIAZIDE 12.5 MG ORAL CAPSULE 952953 HYDROCH LOROTHIAZIDE Inactive CIPRO 500 MG ORAL TABLET 1 tablet by mouth twice daily CIPRO 500 MG ORAL TABLET 225685 CIPROFLOXACIN HCL Inactive FLUCONAZOLE 150 MG ORAL TABLET take 1 tab po qday once FLUCONAZOLE 150 MG ORAL TABLET 293204 FLUCONAZOLE Inactive ZITHROMAX Z-KARTHIK 250 MG ORAL TABLET 2 today, then 1 daily for 4 d ays ZITHROMAX Z-KARTHIK 250 MG ORAL TABLET 213817 AZITHROMYCIN Inactive PREDNISONE 20 MG ORAL TABLET 2 tabs daily for 3 days, 1 tab daily for 3 days, 1/2 tab daily for 2 days PREDNISONE 20 MG ORAL T ABLET 800563 PREDNISONE Inactive AZITHROMYCIN 250 MG ORAL TABLET 2 po qd x 1 day, then 1 po q d x 4 days AZITHROMYCIN 250 MG ORAL TABLET 652454 AZITHROMY SPARKLE Inactive PREDNISONE 20 MG ORAL TABLET 2 tabs daily for 3 days, 1 tab daily for 3 days, 1/2 tab daily for 2 days PREDNISONE 20 MG ORAL TABLET 000310 PREDNISONE Inactive CEFDINIR 300 MG ORAL CAPSULE by mouth twice a day 2013 CEFDINIR 300 MG ORAL CAPSULE 030453 CEFDINIR Inactive TRIAMCINOLONE ACETONIDE 0.1 % EXTERNAL OINTMENT Apply to affected areas TID for up to 2 weeks TRIAMCINOLONE ACETON ZACH 0.1 % EXTERNAL OINTMENT 6274606 TRIAMCINOLONE ACETONIDE Inactive PREDNISONE 20 MG ORAL TABLET 2 tabs daily for 3 days, 1 tab daily for 3 days, 1/2 tab daily for 2 days PREDNISONE 20 MG ORAL T ABLET 722713 PREDNISONE Inactive BACTRIM DS 800-160 MG ORAL TABLET 1 po BID x 7 days 29/04/10 BACTRIM DS 800-160 MG ORAL TABLET 631754 SULFAMETHOXAZOLE-TRIMETHOP RIM Inactive CIPRO 500 MG ORAL TABLET 1 tablet by mouth twice daily CIPRO 500 MG ORAL TABLET 839889 CIPROFLOXACIN HCL Inactive AZITHROMYCIN 250 MG ORAL TABLET 2 po qd x 1 day, then 1 po q d x 4 days AZITHROMYCIN 250 MG ORAL TABLET 359290 AZITHROMY SPARKLE Inactive FLAGYL 500 MG ORAL TABLET 1 tablet by mouth bid 04/13 FLAGYL 500 MG ORAL TABLET 913695 METRONIDAZOLE Inactive AZITHROMYCIN 250 MG ORAL TABLET 2 po qd x 1 day, then 1 po q d x 4 days AZITHROMYCIN 250 MG ORAL TABLET 429938 AZITHROMY SPARKLE Inactive AMOXICILLIN 500 MG ORAL CAPSULE 2 po BID x 10 days 201 01/15/27 AMOXICILLIN 500 MG ORAL CAPSULE 523583 AMOXICILLIN Inactive AMOXICILLIN 500 MG ORAL CAPSULE 2 po BID x 14 days for H. Pylori AMOXICILLIN 500 MG ORAL CAPSULE 534472 AMOXICILLIN Inactive CLARITHROMYCIN 500 MG ORAL TABLET 1 tab po BID x 14 days CLARITHROMYCIN 500 MG ORAL TABLET 828369 CLARITHROMYCIN Inacti ve FLAGYL 500 MG ORAL TABLET 1 tablet by mouth bid 08/29 FLAGYL 500 MG ORAL TABLET 861019 METRONIDAZOLE Inactive PROTONIX 40 MG ORAL TABLET DELAYED RELEASE 1 pill by m outh daily, for acid reflux PROTONIX 40 MG ORAL TABLET DELAYED RELEAS E 352576 PANTOPRAZOLE SODIUM Inactive Immunizations Vaccine Administration Date [...] d blood pressure, diastolic 84 mm[Hg] BP mahtew blood pressure, systolic 139 mm[Hg] BP sys [...] ... - Chemistry sodium, serum 138 mmol/L 953-376 0307/06/27 carbon dioxide, venous blood 30.3 mmol/L 21.0-32 [...] dipstick 1+ Negative sodium, serum 139 mmol/L 096-815 7248/11/28 carbon dioxide, venous blood 26.0 mmol/L 21.0-32 [...] Negative Encounters Code Encounter Date Provider Facility CPT-11686 [id number] Vst-Est Level III 14:40:49 CDT Paul Hamlin MD [facility] CPT-58942 Level 4 Est. Patient 11:08:43 CDT Checo Conklin MD [facility] CPT-72369 [id number] Vst-Est Level III 09:37:41 CDT Dangelo Rangel MD [facility] CPT-12377 Level 4 Est. Patient 08:57:51 LAB ASST Checo Conklin MD [facility] CPT-90237 Level 3 Est. Patient 11:24:55 LAB ASST Efren almendarez APRN [facility] CPT-60474 Level 3 Est. Patient 13:05:44 CDT Paul Hamlin MD [facility] CPT-31962 Level 3 Est. Patient 11:29:55 CDT Checo Conklin MD [facility] CPT-47725 Level 4 Est. Patient 11:08:12 LAB ASST Checo Conklin MD [facility] CPT-15982 Level 4 Est. Patient 16:06:48 LAB ASST Checo Conklin MD [facility] CPT-23550 Level 3 Est. Patient 09:11:49 CDT Efren almendarez [facility] CPT-24568 Level 2 Est. Patient 19:53:27 CDT Tanner hill MD [facility] CPT-18781 Level 3 Est. Patient 09:15:34 CDT Efren almendarez [facility] CPT-14911 Level 3 Est. Patient 11:28:51 LAB ASST Efren almendarez [facility] CPT-21974 Level 4 Est. Patient 13:55:46 LAB ASST Checo Conklin MD [facility] CPT-06338 Level 4 Est. Patient 17:10:53 CDT Checo Conklin MD [facility] CPT-06413 Level 3 Est. Patient 15:56:22 CDT Checo Conklin MD [facility] CPT-92133 Level 3 Est. Patient 15:29:07 CDT Checo Conklin MD [facility] CPT-91140 Level 3 Est. Patient 14:38:41 CDT Checo Conklin MD [facility] CPT-26136 Level 3 Est. Patient 15:22:03 LAB ASST Thomas reynolds DO [facility] CPT-34786 Level 3 Est. Patient 13:34:17 LAB ASST Checo Conklin MD [facility] CPT-51177 Level 3 Est. Patient 12:29:32 CDT Dangelo arroyo MD [facility] CPT-79240 Level 3 Est. Patient 16:53:02 CDT Checo Conklin MD [facility] CPT-01509 Level 3 Est. Patient 16:37:13 CDT Checo Conklin MD [facility] CPT-15145 Level 3 Est. Patient 16:16:59 CDT Paul Hamlin MD [facility] CPT-70120 Level 3 Est. Patient 14:20:13 CDT Dangelo arroyo MD [facility] CPT-25428 Level 4 Est. Patient 11:29:33 CDT Checo Conklin MD [facility] CPT-95512 Level 3 Est. Patient 17:08:31 CDT Checo Conklin MD [facility] CPT-89683 Level 3 Est. Patient 16:50:42 LAB ASST Checo Conklin MD [facility] CPT-54039 Level 4 Est. Patient 09:26:08 LAB ASST Checo Conklin MD [facility] CPT-07796 Level 3 Est. Patient 11:37:10 CDT Checo Conklin MD [facility] CPT-00081 Level 4 Est. Patient 14:07:38 CDT Checo Conklin MD [facility] CPT-22023 Level 3 Est. Patient 09:54:41 CDT Checo Conklin MD [facility] CPT-54233 Level 3 Est. Patient 11:10:54 CDT Paul Hamlin MD [facility] CPT-17418 Level 3 Est. Patient 14:16:56 LAB ASST Checo Conklin MD [facility] CPT-05238 Level 3 Est. Patient 11:04:11 LAB ASST Checo Conklin MD [facility] CPT-34066 Level 3 Est. Patient 17:09:26 CDT Dangelo arroyo MD [facility] CPT-94591 Level 3 Est. Patient 16:54:37 CDT Checo Conklin MD [facility] Procedures Code Procedure Name Date Entry Date Standard Desc ription CPT-96277 Wrist, right, comp 3V - XRAY USE ONLY 09:24:31 CDT CPT-04750 Abd compl w upright - XRAY USE ONLY 1 1:36:54 LAB ASST CPT-10832 UA w micro - LAB USE ONLY 17:06:46 CDT 2015 CPT-09092 BHCG Qual - LAB USE ONLY 17:06:46 CDT 05/06 CPT-46189 CMP - LAB USE ONLY 17:06:46 CDT CPT-21694 CBC with Diff - LAB USE ONLY 17:06:45 CDT 2 CPT-10252 Venipuncture Draw Fee 17:06:45 CDT CPT-LR Lesion Removal 19:53:27 CDT CPT-OV Office Visit 11:31:28 CDT CPT-67393 Tubersol 09:39:29 CDT CPT-J2550 Phenergan 25 mg (Promethazine) 13:59:02 LAB ASST CPT-J1885 Toradol 60 mg (Ketorolac) 13:59:02 LAB ASST 2012
--- OUTSIDE RECORDS SUMMARY | 2019-09-29 01:51 | XMS REPORT | Clinical Summary ---
Author Author Admin, Bethany Ayala [facility] Address Unknown Phone Unavailable Allergies, [...] unspecified site BRONCHITIS, ACUTE 466.0 Resolved Checo Conkiln MD Acute bronchitis Abdominal pain 789.00 Resolved [...] CAPSULE 1 po qd PRN Edema HYDROCHLOROTHIAZIDE 07587237226 Active Checo Conklin MD Ac tive IBUPROFEN 800 MG ORAL TABLET 1 tab every 8 hours as needed for p ain IBUPROFEN 58049340566 Active Dangelo Rangel MD Acti ve PAROXETINE HCL 40 MG ORAL TABLET 1 po qd PAR OXETINE HCL 74266147736 Active Checo Conklin MD Active MIRALAX ORAL POWDER 8.5 to 17g po qd PRN Constipation POLYETHYLENE GLYCOL 3350 30215272204 No Longer Active Checo Conklin MD Active PROTONIX 40 MG ORAL TABLET DELAYED RELEASE 1 pill by [facility] daily, for acid reflux PANTOPRAZOLE SODIUM 43355450496 No Longer Activ e Corry Méndez LPN Active FLAGYL 500 MG ORAL TABLET 1 tablet by mouth bid 08/29 METRONIDAZOLE 57367792051 No Longer Active Corry Méndez LPN Active CLARITHROMYCIN 500 MG ORAL TABLET 1 tab po BID x 14 days CLARITHROMYCIN 32642087224 No Longer Active Corry Méndez LPN Active AMOXICILLIN 500 MG ORAL CAPSULE 2 po BID x 14 days for H. Pylori AMOXICILLIN 08226595559 No Longer Active Corry Méndez LPN Active FLUTICASONE PROPIONATE 50 MCG/ACT NASAL SUSPENSION 2 s prays/nostril qd PRN Congestion/Allergies FLUTICASONE PROPIONATE 9022792709 9 No Longer Active Checo Conklin MD Active AMOXICILLIN 500 MG ORAL CAPSULE 2 po BID x 10 days 201 01/15/27 AMOXICILLIN 01066618927 No Longer Active Checo Conklin MD Activ e CLARITIN 10 MG ORAL TABLET 1 tablet by mouth daily as needed for allergies LORATADINE 53081649954 No Longer Active Checo Ortiz MD Active BACTRIM DS 800-160 MG ORAL TABLET 1 tab by mouth twice daily 201 12/19/26 TRIMETHOPRIM-SULFAMETHOXAZOLE 97851022411 No Longer Active S cott D Hollenberg MD Active DIFLUCAN 150 MG ORAL TABLET 1 tablet by mouth qod 2015 FLUCONAZOLE 23625471252 No Longer Active Efren Medel APRN Act mike AZITHROMYCIN 250 MG ORAL TABLET 2 po qd x 1 day, then 1 po q d x 4 days AZITHROMYCIN 00448056359 No Longer Active Efren flores [employer]SOLE [employer] OUTSOLE SPLITTER Active FLAGYL 500 MG ORAL TABLET 1 tablet by mouth bid 04/13 METRONIDAZOLE 42355303344 No Longer Active Checo Conklin MD Acti ve FOCALIN XR 10 MG ORAL CAPSULE EXTENDED RELEASE 24 HOUR 1 po q a.m. DEXMETHYLPHENIDATE HCL 15849104254 Active Checo Conklin MD Active MAGNESIUM CITRATE 1.745 GM/30ML ORAL SOLUTION 150ml po BID P RN Constipation MAGNESIUM CITRATE 53875259190 No Longer Active Checo Conklin MD Active BACTROBAN 2 % EXTERNAL CREAM Apply to affected area BID for up to 10 days MUPIROCIN CALCIUM 52545927264 No Longer Active Checo Conklin MD Active HYDROCODONE-ACETAMINOPHEN 5-325 MG ORAL TABLET 1 tab b y mouth every 6 hours as needed HYDROCODONE-ACETAMINOPHEN 66353059886 No Longer Active Checo Conklin MD Active IBUPROFEN 800 MG ORAL TABLET 1 tab every 8 hours with food 03/20 IBUPROFEN 63301665364 No Longer Active Checo Conklin MD Active DIFLUCAN 150 MG ORAL TABLET 1 tablet by mouth if neede d, hold until symptoms start FLUCONAZOLE 98270020427 No Longer Active Checo Conklin MD Active BACTRIM DS 800-160 MG ORAL TABLET 1 tab by mouth twice daily 201 11/23/03 TRIMETHOPRIM-SULFAMETHOXAZOLE 91079408268 No Longer Active Bonnie Méndez LPN Active HYDROCODONE-ACETAMINOPHEN 5-325 MG ORAL TABLET 0.5 to 1 tab by mouth every 6 hours as needed HYDROCODONE-ACETAMINOPHEN 74655971933 No Longer Active Checo Conklin MD Active ONDANSETRON 8 MG ORAL TABLET DISINTEGRATING place one tablet on tongue and allow to dissolve every 6 hours as needed for vomitting ONDANSETRON 76035265174 No Longer Active Checo Conklin MD Activ e COMPRO 25 MG RECTAL SUPPOSITORY insert or apply one garza ppository rectally as directed every 12 hours as needed for nausea PROCHLORPERAZINE 59478497997 No Longer Active Checo Conklin MD A ctive SUMATRIPTAN SUCCINATE 100 MG ORAL TABLET Take one PRN for migran e SUMATRIPTAN SUCCINATE 73314782924 No Longer Active Checo Conklin MD Active TRAVEL SICKNESS 25 MG ORAL TABLET CHEWABLE chew and sw allow one tablet every 6 hours as needed MECLIZINE HCL 26183692543 No Longer A ctive Checo Conklin MD Active BUPROPION HCL ER (SR) 100 MG ORAL TABLET EXTENDED RELE ASE 12 HOUR take one tablet by mouth one time daily for one week then take 1 two times daily BUPROPION HCL 91719330307 No Longer Active Checo gallagher MD Active TERBINAFINE HCL 250 MG ORAL TABLET take one table PO one time da moises TERBINAFINE HCL 06946013566 No Longer Active Checo Conklin MD Active METOCLOPRAMIDE HCL 10 MG ORAL TABLET take one PO tid PRN nausea METOCLOPRAMIDE HCL 46354089339 No Longer Active Checo Conklin MD Active DICLOFENAC SODIUM 75 MG ORAL TABLET DELAYED RELEASE 1 tablet by mouth twice daily PRN Knee pain DICLOFENAC SODIUM 06180851076 No Longer Active Checo Conklin MD Active LAMISIL 250 MG ORAL TABLET 1 po qd TERBINAFI NE HCL 54880823386 No Longer Active Checo Conklin MD Active REGLAN 10 MG ORAL TABLET 1 po TID PRN Nausea 3 METOCLOPRAMIDE HCL 93275995177 No Longer Active Checo Conklin MD Active CELEXA 20 MG ORAL TABLET 1 tablet by mouth daily 09/26 CITALOPRAM HYDROBROMIDE 13677407784 No Longer Active Checo Conklin MD Active AZITHROMYCIN 250 MG ORAL TABLET 2 po qd x 1 day, then 1 po q d x 4 days AZITHROMYCIN 22537665134 No Longer Active Checo Ortiz MD Active HYDROCODONE-ACETAMINOPHEN 5-325 MG ORAL TABLET 1 po q 6hr PRN Pa in HYDROCODONE-ACETAMINOPHEN 09815513028 No Longer Active Lenora Conklin MD Active PHENAZOPYRIDINE HCL 200 MG ORAL TABLET take 1 tab po TID for bladder pain PHENAZOPYRIDINE HCL 72030646206 No Longer Active Joe Conklin MD Active CIPRO 500 MG ORAL TABLET 1 tablet by mouth twice daily CIPROFLOXACIN HCL 40752721752 No Longer Active Dangelo Rangel MD Active HYDROCODONE-ACETAMINOPHEN 5-325 MG ORAL TABLET 1/2 to 1 po q 4 hours prn cough HYDROCODONE-ACETAMINOPHEN 16919038823 No Longer Activ e Dangelo Rangel MD Active BACTRIM DS 800-160 MG ORAL TABLET 1 po BID x 7 days 29/04/10 SULFAMETHOXAZOLE-TRIMETHOPRIM 48355142310 No Longer Active Checo Conklin MD Active PREDNISONE 20 MG ORAL TABLET 2 tabs daily for 3 days, 1 tab daily for 3 days, 1/2 tab daily for 2 days PREDNISONE 88407332086 No Longer Active Checo Conklin MD Active TRIAMCINOLONE ACETONIDE 0.1 % EXTERNAL OINTMENT Apply to affected areas TID for up to 2 weeks TRIAMCINOLONE ACETONIDE 06858573674 No Longer Active Checo Conklin MD Active CEFDINIR 300 MG ORAL CAPSULE by mouth twice a day 2013 CEFDINIR 96425887561 No Longer Active Dangelo Rangel MD Acti ve BUPROPION HCL ER (SMOKING DET) 150 MG ORAL TABLET EXTE NDED RELEASE 12 HOUR 1 a day for 1 week then 1 twice a day BUPROPION HCL (SMOKING DETER) 20749019473 No Longer Active Checo Conklin MD Active SIMVASTATIN 20 MG ORAL TABLET 1 po qd SIMVASTAT IN 56866812283 Active Checo Conklin MD Active CHANTIX STARTING MONTH KARTHIK 0.5 MG X 11 & 1 MG X 42 ORA L TABLET 0.5mg daily for 3 days, then 0.5mg BID for 4 days, then 1mg BID VARENICLINE TARTRATE 21059727603 No Longer Active Checo Conklin MD Activ e XANAX 0.5 MG ORAL TABLET 1 po BID PRN anxiety A LPRAZOLAM 89426920850 Active Thomas Marks DO Active CONCERTA 18 MG ORAL TABLET EXTENDED RELEASE 1 po q a.m. METHYLPHENIDATE HCL 23980952341 No Longer Active Checo Conklin MD Active AMBIEN 5 MG ORAL TABLET 1 po qHS PRN Insomnia Z OLPIDEM TARTRATE 86059875980 Active Thomas Marks DO Active TRAZODONE HCL 100 MG ORAL TABLET 0.5 to 1 po qHS PRN Insomnia 20 30/07/08 TRAZODONE HCL 36759617226 No Longer Active Checo Conklin MD Active FIORICET 325-50-40 MG TAB 1 tablet by mouth four times daily as needed [id number] 62390092682 No Longer Active Checo Conklin MD Active PHENERGAN CREAM* 25mg applied to wrist q6hr PRN Nausea PHENERGAN CREAM* No Longer Active Checo Gonzales ctive FLONASE 50 MCG/ACT NASAL SUSPENSION 1 spray each nostril am and hs FLUTICASONE PROPIONATE 75945222315 No Longer Active Checo Conklin MD Active ANTIPYRINE-BENZOCAINE 5.4-1.4 % OTIC SOLUTION 1-2 drops in affec yohannes ear BENZOCAINE-ANTIPYRINE 99490441029 No Longer Active Checo Conklin MD Active CEFDINIR 300 MG ORAL CAPSULE 1 po bid CEFDINIR 75826505920 No Longer Active Checo Conklin MD Active PREDNISONE 20 MG ORAL TABLET 2 tabs daily for 3 days, 1 tab daily for 3 days, 1/2 tab daily for 2 days PREDNISONE 87507655980 No Longer Active Checo Conklin MD Active AZITHROMYCIN 250 MG ORAL TABLET 2 po qd x 1 day, then 1 po q d x 4 days AZITHROMYCIN 59839884441 No Longer Active Checo Ortiz MD Active PREDNISONE 20 MG ORAL TABLET 2 tabs daily for 3 days, 1 tab daily for 3 days, 1/2 tab daily for 2 days PREDNISONE 58559626480 No Longer Active Checo Conklin MD Active ZITHROMAX Z-KARTHIK 250 MG ORAL TABLET 2 today, then 1 daily for 4 d ays AZITHROMYCIN 53540708381 No Longer Active Paul Hamlin MD Active FOCALIN XR 10 MG ORAL CAPSULE EXTENDED RELEASE 24 HOUR 1 po q a. m. DEXMETHYLPHENIDATE HCL 24179880873 No Longer Active Paul Hamlin MD Active PERCOCET 10-325 MG ORAL TABLET 1 tablet every 6 hours as needed for pain OXYCODONE-ACETAMINOPHEN 45988577195 No Longer Active Paul Hamlin MD Active LORTAB 5-500 MG ORAL TABLET 1/2 to 1 tablet by mouth e very 4 hours as needed for pain HYDROCODONE-ACETAMINOPHEN 06226307774 No Longer Active Checo Conklin MD Active FOCALIN XR 15 MG ORAL CAPSULE EXTENDED RELEASE 24 HOUR 1 po q a. m. DEXMETHYLPHENIDATE HCL 77164163131 No Longer Active Checo Conklin MD Active ZOFRAN ODT 4 MG ORAL TABLET DISINTEGRATING 1 po q6hr PRN Nausea ONDANSETRON 05211713382 No Longer Active Checo Conklin MD Active PERCOCET 5-325 MG ORAL TABLET 1 tablet by mouth every 6 hour s as needed OXYCODONE-ACETAMINOPHEN 97418442779 No Longer Active Checo Conklin MD Active PYRIDIUM 200 MG ORAL TABLET take 1 tab po TID prn urinary pain. PHENAZOPYRIDINE HCL 66003100670 No Longer Active Checo Joshua Active FLUCONAZOLE 150 MG ORAL TABLET take 1 tab po qday once FLUCONAZOLE 14575306002 No Longer Active Dangelo Rangel MD Acti ve CIPRO 500 MG ORAL TABLET 1 tablet by mouth twice daily CIPROFLOXACIN HCL 42607698352 No Longer Active Dangelo Rangel MD Active PYRIDIUM 200 MG ORAL TABLET take 1 tab po TID prn urinary pain. PYRIDIUM 200 MG ORAL TABLET 8764525 PHENAZOPYRIDINE HCL Inactive PERCOCET 5-325 MG ORAL TABLET 1 tablet by mouth every 6 hour s as needed PERCOCET 5-325 MG ORAL TABLET 8709002 OXYCODONE-ACETAMINOPHEN Inactive ZOFRAN ODT 4 MG ORAL TABLET DISINTEGRATING 1 po q6hr PRN Nausea ZOFRAN ODT 4 MG ORAL TABLET DISINTEGRATING 307666 ONDAN SETRON Inactive FOCALIN XR 15 MG [...] for pain PERCOCET 10-325 MG ORAL TABLET 4402326 OXYCODONE-ACETAMI NOPHEN Inactive FOCALIN XR 10 MG ORAL CAPSULE EXTENDED RELEASE 24 HOUR 1 po q a. m. FOCALIN XR 10 MG ORAL CAPSULE EXTENDED RELEASE 24 HOUR DEXMETHYLPHENIDATE HCL Inactive CEFDINIR 300 MG ORAL CAPSULE 1 po bid CEFDINI R 300 MG ORAL CAPSULE 366676 CEFDINIR Inactive ANTIPYRINE-BENZOCAINE 5.4-1.4 % OTIC SOLUTION 1-2 drops in affec yohannes ear ANTIPYRINE-BENZOCAINE 5.4-1.4 % OTIC SOLUTION BENZOCAINE-ANTIPYRINE Inactive FLONASE 50 MCG/ACT NASAL SUSPENSION 1 spray each nostril am and hs FLONASE 50 MCG/ACT NASAL SUSPENSION 6394011 FLUTICASONE PROPIONATE I nactive PHENERGAN CREAM* 25mg applied to wrist q6hr PRN Nausea PHENERGAN CREAM* Inactive FIORICET 325-50-40 MG TAB 1 tablet by mouth four times daily as needed FIORICET 325-50-40 MG TAB ACETAMINOPHEN-C AFF-BUTALBITAL Inactive TRAZODONE HCL 100 MG ORAL TABLET 0.5 to 1 po qHS PRN Insomnia 20 30/07/08 TRAZODONE HCL 100 MG ORAL TABLET 250720 TRAZODONE HCL Inactive CONCERTA 18 MG ORAL [...] cough HYDROCODONE-ACETAMINOPHEN 5-325 MG ORAL TABLET 8 30860 HYDROCODONE-ACETAMINOPHEN Inactive PHENAZOPYRIDINE HCL 200 MG ORAL TABLET take 1 tab po TID for bladder pain PHENAZOPYRIDINE HCL 200 MG ORAL TABLET 6645135 PHENAZOPYRIDINE HCL Inactive HYDROCODONE-ACETAMINOPHEN 5-325 MG ORAL TABLET 1 po q 6hr PRN Pa in HYDROCODONE-ACETAMINOPHEN 5-325 MG ORAL TABLET 543480 HYDROCODONE-ACETAMINOPHEN Inactive CELEXA 20 MG ORAL TABLET 1 tablet by mouth daily 09/26 CELEXA 20 MG ORAL TABLET 749361 CITALOPRAM HYDROBROMIDE Inactive REGLAN 10 MG ORAL TABLET 1 po TID PRN Nausea 3 REGLAN 10 MG ORAL TABLET 201778 METOCLOPRAMIDE HCL Inactive LAMISIL 250 MG ORAL TABLET 1 po qd L AMISIL 250 MG ORAL TABLET 118589 TERBINAFINE HCL Inactive DICLOFENAC SODIUM 75 MG ORAL TABLET DELAYED RELEASE 1 tablet by mouth twice daily PRN Knee pain DICLOFENAC SODIUM 75 MG ORAL TABLET DELAYED RELEASE 425373 DICLOFENAC SODIUM Inactive METOCLOPRAMIDE HCL 10 MG ORAL TABLET take one PO tid PRN nausea METOCLOPRAMIDE HCL 10 MG ORAL TABLET 120690 METOCLOPRAM ZACH HCL Inactive TERBINAFINE HCL 250 MG ORAL TABLET take one table PO one time da moises TERBINAFINE HCL 250 MG ORAL TABLET 532052 TERBINAFINE H CL Inactive BUPROPION HCL ER [...] SICKNESS 25 M G ORAL TABLET CHEWABLE 311336 MECLIZINE HCL Inactive SUMATRIPTAN SUCCINATE 100 MG ORAL TABLET Take one PRN for migran e SUMATRIPTAN SUCCINATE 100 MG ORAL TABLET 036187 SUMATRIPTAN SUCCINATE Inactive COMPRO 25 MG RECTAL SUPPOSITORY insert or apply one garza ppository rectally as directed every 12 hours as needed for nausea COMPRO 25 MG RECTAL SUPPOSITORY 396853 PROCHLORPERAZINE Inactive ONDANSETRON 8 MG ORAL TABLET DISINTEGRATING place one tablet on tongue and allow to dissolve every 6 hours as needed for vomitting ONDANSETRON 8 MG ORAL TABLET DISINTEGRATING 919272 ONDANSETRON Inactive HYDROCODONE-ACETAMINOPHEN 5-325 MG ORAL TABLET 0.5 to 1 tab by mouth every 6 hours as needed HYDROCODONE-ACETAMIN OPHEN 5-325 MG ORAL TABLET 324442 HYDROCODONE-ACETAMINOPHEN Inactive BACTRIM DS 800-160 MG ORAL TABLET 1 tab by mouth twice daily 201 11/23/03 BACTRIM DS 800-160 MG ORAL TABLET 033309 TRIMETHOPRIM-SULFAMETHOXAZOLE Inactive DIFLUCAN 150 MG ORAL TABLET 1 tablet by mouth if neede d, hold until symptoms start DIFLUCAN 150 MG ORAL TABLET 644634 FLUCONAZ OLE Inactive IBUPROFEN 800 MG ORAL TABLET 1 tab every 8 hours with food 03/20 IBUPROFEN 800 MG ORAL TABLET 154307 IBUPROFEN Krupa ctive HYDROCODONE-ACETAMINOPHEN 5-325 MG ORAL TABLET 1 tab b y mouth every 6 hours as needed HYDROCODONE-ACETAMINOPHEN 5-325 MG ORAL TABLET 247559 HYDROCODONE-ACETAMINOPHEN Inactive BACTROBAN 2 % EXTERNAL CREAM Apply to affected area BID for up to 10 days BACTROBAN 2 % EXTERNAL CREAM 946039 MUPIROCIN CA LCIUM Inactive MAGNESIUM CITRATE 1.745 GM/30ML ORAL SOLUTION 150ml po BID P RN Constipation MAGNESIUM CITRATE 1.745 GM/30ML ORAL SOLUTION 10 20699 MAGNESIUM CITRATE Inactive DIFLUCAN 150 MG ORAL TABLET 1 tablet by mouth qod 2015 DIFLUCAN 150 MG ORAL TABLET 359023 FLUCONAZOLE Inactive BACTRIM DS 800-160 MG ORAL TABLET 1 tab by mouth twice daily 201 12/19/26 BACTRIM DS 800-160 MG ORAL TABLET 230316 TRIMETHOPRIM-SULFAMETHOXAZOLE Inactive CLARITIN 10 MG ORAL TABLET 1 tablet by mouth daily as needed for allergies CLARITIN 10 MG ORAL TABLET 974138 LORATADINE I nactive FLUTICASONE PROPIONATE 50 MCG/ACT NASAL SUSPENSION 2 s prays/nostril qd PRN Congestion/Allergies FLUTICASONE PROPION ATE 50 MCG/ACT NASAL SUSPENSION 6034497 FLUTICASONE PROPIONATE Inactive MIRALAX ORAL POWDER 8.5 to 17g po qd PRN Constipation MIRALAX ORAL POWDER 839546 POLYETHYLENE GLYCOL 3350 Inactive CIPRO 500 MG ORAL TABLET 1 tablet by mouth twice daily CIPRO 500 MG ORAL TABLET 561114 CIPROFLOXACIN HCL Inactive FLUCONAZOLE 150 MG ORAL TABLET take 1 tab po qday once FLUCONAZOLE 150 MG ORAL TABLET 767217 FLUCONAZOLE Inactive ZITHROMAX Z-KARTHIK 250 MG ORAL TABLET 2 today, then 1 daily for 4 d ays ZITHROMAX Z-KARTHIK 250 MG ORAL TABLET 021033 AZITHROMYCIN Inactive PREDNISONE 20 MG ORAL TABLET 2 tabs daily for 3 days, 1 tab daily for 3 days, 1/2 tab daily for 2 days PREDNISONE 20 MG ORAL T ABLET 491019 PREDNISONE Inactive AZITHROMYCIN 250 MG ORAL TABLET 2 po qd x 1 day, then 1 po q d x 4 days AZITHROMYCIN 250 MG ORAL TABLET 832722 AZITHROMY SPARKLE Inactive PREDNISONE 20 MG ORAL TABLET 2 tabs daily for 3 days, 1 tab daily for 3 days, 1/2 tab daily for 2 days PREDNISONE 20 MG ORAL TABLET 948853 PREDNISONE Inactive CEFDINIR 300 MG ORAL CAPSULE by mouth twice a day 2013 CEFDINIR 300 MG ORAL CAPSULE 601290 CEFDINIR Inactive TRIAMCINOLONE ACETONIDE 0.1 % EXTERNAL OINTMENT Apply to affected areas TID for up to 2 weeks TRIAMCINOLONE ACETON ZACH 0.1 % EXTERNAL OINTMENT 8993736 TRIAMCINOLONE ACETONIDE Inactive PREDNISONE 20 MG ORAL TABLET 2 tabs daily for 3 days, 1 tab daily for 3 days, 1/2 tab daily for 2 days PREDNISONE 20 MG ORAL T ABLET 647747 PREDNISONE Inactive BACTRIM DS 800-160 MG ORAL TABLET 1 po BID x 7 days 29/04/10 BACTRIM DS 800-160 MG ORAL TABLET 873590 SULFAMETHOXAZOLE-TRIMETHOP RIM Inactive CIPRO 500 MG ORAL TABLET 1 tablet by mouth twice daily CIPRO 500 MG ORAL TABLET 922132 CIPROFLOXACIN HCL Inactive AZITHROMYCIN 250 MG ORAL TABLET 2 po qd x 1 day, then 1 po q d x 4 days AZITHROMYCIN 250 MG ORAL TABLET 614428 AZITHROMY SPARKLE Inactive FLAGYL 500 MG ORAL TABLET 1 tablet by mouth bid 04/13 FLAGYL 500 MG ORAL TABLET 590107 METRONIDAZOLE Inactive AZITHROMYCIN 250 MG ORAL TABLET 2 po qd x 1 day, then 1 po q d x 4 days AZITHROMYCIN 250 MG ORAL TABLET 252801 AZITHROMY SPARKLE Inactive AMOXICILLIN 500 MG ORAL CAPSULE 2 po BID x 10 days 201 01/15/27 AMOXICILLIN 500 MG ORAL CAPSULE 474160 AMOXICILLIN Inactive AMOXICILLIN 500 MG ORAL CAPSULE 2 po BID x 14 days for H. Pylori AMOXICILLIN 500 MG ORAL CAPSULE 192304 AMOXICILLIN Inactive CLARITHROMYCIN 500 MG ORAL TABLET 1 tab po BID x 14 days CLARITHROMYCIN 500 MG ORAL TABLET 471073 CLARITHROMYCIN Inacti ve FLAGYL 500 MG ORAL TABLET 1 tablet by mouth bid 08/29 FLAGYL 500 MG ORAL TABLET 347641 METRONIDAZOLE Inactive PROTONIX 40 MG ORAL TABLET DELAYED RELEASE 1 pill by m outh daily, for acid reflux PROTONIX 40 MG ORAL TABLET DELAYED RELEAS E 964489 PANTOPRAZOLE SODIUM Inactive Immunizations Vaccine Administration Date [...] ... - Chemistry sodium, serum 138 mmol/L 365-956 0446/06/27 carbon dioxide, venous blood 30.3 mmol/L 21.0-32 [...] dipstick 1+ Negative sodium, serum 139 mmol/L 781-377 3954/11/28 carbon dioxide, venous blood 26.0 mmol/L 21.0-32 [...] Negative Encounters Code Encounter Date Provider Facility CPT-07309 Level 4 Est. Patient 11:08:43 CDT Checo Conklin MD [facility] CPT-08863 [id number] Vst-Est Level III 09:37:41 CDT Dangelo Rangel MD [facility] CPT-61515 Level 4 Est. Patient 08:57:51 TECHNICAL CONSULTANT Checo Conklin MD [facility] CPT-33828 Level 3 Est. Patient 11:24:55 TECHNICAL CONSULTANT Efren almendarez [facility] CPT-53881 Level 3 Est. Patient 13:05:44 CDT Paul Hamlin MD [facility] CPT-31603 Level 3 Est. Patient 11:29:55 CDT Checo Conklin MD [facility] CPT-99533 Level 4 Est. Patient 11:08:12 TECHNICAL CONSULTANT Checo Conklin MD [facility] CPT-47236 Level 4 Est. Patient 16:06:48 TECHNICAL CONSULTANT Checo Conklin MD [facility] CPT-21445 Level 3 Est. Patient 09:11:49 CDT Efren almendarez [facility] CPT-79077 Level 2 Est. Patient 19:53:27 CDT Tanner hill MD [facility] CPT-03219 Level 3 Est. Patient 09:15:34 CDT Efren almendarez [facility] CPT-00776 Level 3 Est. Patient 11:28:51 TECHNICAL CONSULTANT Efren almendarez [facility] CPT-50258 Level 4 Est. Patient 13:55:46 TECHNICAL CONSULTANT Checo Conklin MD [facility] CPT-47107 Level 4 Est. Patient 17:10:53 CDT Checo Conklin MD [facility] CPT-44602 Level 3 Est. Patient 15:56:22 CDT Checo Conklin MD [facility] CPT-65107 Level 3 Est. Patient 15:29:07 CDT Checo Conklin MD [facility] CPT-55519 Level 3 Est. Patient 14:38:41 CDT Checo Conklin MD [facility] CPT-63887 Level 3 Est. Patient 15:22:03 TECHNICAL CONSULTANT Thomas reynolds DO [facility] CPT-19080 Level 3 Est. Patient 13:34:17 TECHNICAL CONSULTANT Checo Conklin MD [facility] CPT-42699 Level 3 Est. Patient 12:29:32 CDT Dangelo arroyo MD [facility] CPT-13609 Level 3 Est. Patient 16:53:02 CDT Checo Conklin MD [facility] CPT-54517 Level 3 Est. Patient 16:37:13 CDT Checo Conklin MD [facility] CPT-65590 Level 3 Est. Patient 16:16:59 CDT Paul Hamlin MD [facility] CPT-42354 Level 3 Est. Patient 14:20:13 CDT Dangelo arroyo MD [facility] CPT-51749 Level 4 Est. Patient 11:29:33 CDT Checo Conklin MD [facility] CPT-89306 Level 3 Est. Patient 17:08:31 CDT Checo Conklin MD [facility] CPT-08355 Level 3 Est. Patient 16:50:42 TECHNICAL CONSULTANT Checo Conklin MD [facility] CPT-42850 Level 4 Est. Patient 09:26:08 TECHNICAL CONSULTANT Checo Conklin MD [facility] CPT-93975 Level 3 Est. Patient 11:37:10 CDT Checo Conklin MD [facility] CPT-18359 Level 4 Est. Patient 14:07:38 CDT Checo Conklin MD [facility] CPT-51528 Level 3 Est. Patient 09:54:41 CDT Checo Conklin MD [facility] CPT-56691 Level 3 Est. Patient 11:10:54 CDT Paul Hamlin MD [facility] CPT-75967 Level 3 Est. Patient 14:16:56 TECHNICAL CONSULTANT Checo Conklin MD [facility] CPT-07245 Level 3 Est. Patient 11:04:11 TECHNICAL CONSULTANT Checo Conklin MD [facility] CPT-65440 Level 3 Est. Patient 17:09:26 CDT Dangelo arroyo MD [facility] CPT-97064 Level 3 Est. Patient 16:54:37 CDT Checo Conklin MD [facility] Procedures Code Procedure Name Date Entry Date Standard Desc ription CPT-59226 Wrist, right, comp 3V - XRAY USE ONLY 09:24:31 CDT CPT-22961 Abd compl w upright - XRAY USE ONLY 1 1:36:54 TECHNICAL CONSULTANT CPT-72550 UA w micro - LAB USE ONLY 17:06:46 CDT 2015 CPT-92488 BHCG Qual - LAB USE ONLY 17:06:46 CDT 05/06 CPT-76614 CMP - LAB USE ONLY 17:06:46 CDT CPT-44893 CBC with Diff - LAB USE ONLY 17:06:45 CDT 2 CPT-96958 Venipuncture Draw Fee 17:06:45 CDT CPT-LR Lesion Removal 19:53:27 CDT CPT-OV Office Visit 11:31:28 CDT CPT-29629 Tubersol 09:39:29 CDT CPT-J2550 Phenergan 25 mg (Promethazine) 13:59:02 TECHNICAL CONSULTANT CPT-J1885 Toradol 60 mg (Ketorolac) 13:59:02 TECHNICAL CONSULTANT 2012
--- OUTSIDE RECORDS SUMMARY | 2019-09-29 01:52 | XMS REPORT | Clinical Summary ---
Author Author Admin, Bethany Gonzales Organization [email or web address] Address Unknown Phone Unavailable Allergies, Adverse Reactions, [...] CAPSULE 1 po qd PRN Edema HYDROCHLOROTHIAZIDE [id number] Active Checo Conklin MD Ac tive IBUPROFEN 800 MG ORAL TABLET 1 tab every 8 hours as needed for p ain IBUPROFEN 06669059006 Active Dangelo Rangel MD Acti ve PAROXETINE HCL 40 MG ORAL TABLET 1 po qd PAR OXETINE HCL 00135795700 Active Checo Conklin MD Active MIRALAX ORAL POWDER 8.5 to 17g po qd PRN Constipation POLYETHYLENE GLYCOL 3350 97154824239 No Longer Active Checo Conklin MD Active PROTONIX 40 MG ORAL TABLET DELAYED RELEASE 1 pill by [facility] daily, for acid reflux PANTOPRAZOLE SODIUM 70630209518 No Longer Activ e Corry Méndez LPN Active FLAGYL 500 MG ORAL TABLET 1 tablet by mouth bid 08/29 METRONIDAZOLE 86815523319 No Longer Active Corry Méndez LPN Active CLARITHROMYCIN 500 MG ORAL TABLET 1 tab po BID x 14 days CLARITHROMYCIN 19556461660 No Longer Active Corry Méndez LPN Active AMOXICILLIN 500 MG ORAL CAPSULE 2 po BID x 14 days for H. Pylori AMOXICILLIN 00893805717 No Longer Active Corry Méndez LPN Active FLUTICASONE PROPIONATE 50 MCG/ACT NASAL SUSPENSION 2 s prays/nostril qd PRN Congestion/Allergies FLUTICASONE PROPIONATE 0012653627 9 No Longer Active Checo Conklin MD Active AMOXICILLIN 500 MG ORAL CAPSULE 2 po BID x 10 days 201 01/15/27 AMOXICILLIN 61371368222 No Longer Active Checo Conklin MD Activ e CLARITIN 10 MG ORAL TABLET 1 tablet by mouth daily as needed for allergies LORATADINE 88131043219 No Longer Active Checo Ortiz MD Active BACTRIM DS 800-160 MG ORAL TABLET 1 tab by mouth twice daily 201 12/19/26 TRIMETHOPRIM-SULFAMETHOXAZOLE 40926453771 No Longer Active Ragini Carrillo MD Active DIFLUCAN 150 MG ORAL TABLET 1 tablet by mouth qod 2015 FLUCONAZOLE 43568432633 No Longer Active Efren Medel APRN Act mike AZITHROMYCIN 250 MG ORAL TABLET 2 po qd x 1 day, then 1 po q d x 4 days AZITHROMYCIN 23146029195 No Longer Active Efren flores APRN Active FLAGYL 500 MG ORAL TABLET 1 tablet by mouth bid 04/13 METRONIDAZOLE 25731764280 No Longer Active Checo Conklin MD Acti ve FOCALIN XR 10 MG ORAL CAPSULE EXTENDED RELEASE 24 HOUR 1 po q a.m. DEXMETHYLPHENIDATE HCL 19755302821 Active Checo Conklin MD Active MAGNESIUM CITRATE 1.745 GM/30ML ORAL SOLUTION 150ml po BID P RN Constipation MAGNESIUM CITRATE 21853181538 No Longer Active Checo Conklin MD Active BACTROBAN 2 % EXTERNAL CREAM Apply to affected area BID for up to 10 days MUPIROCIN CALCIUM 85515747301 No Longer Active Checo Conklin MD Active HYDROCODONE-ACETAMINOPHEN 5-325 MG ORAL TABLET 1 tab b y mouth every 6 hours as needed HYDROCODONE-ACETAMINOPHEN 92562334618 No Longer Active Checo Conklin MD Active IBUPROFEN 800 MG ORAL TABLET 1 tab every 8 hours with food 03/20 IBUPROFEN 50768321016 No Longer Active Checo Conklin MD Active DIFLUCAN 150 MG ORAL TABLET 1 tablet by mouth if neede d, hold until symptoms start FLUCONAZOLE 05089666799 No Longer Active Checo Conklin MD Active BACTRIM DS 800-160 MG ORAL TABLET 1 tab by mouth twice daily 201 11/23/03 TRIMETHOPRIM-SULFAMETHOXAZOLE 81008590118 No Longer Active Bonnie Méndez LPN Active HYDROCODONE-ACETAMINOPHEN 5-325 MG ORAL TABLET 0.5 to 1 tab by mouth every 6 hours as needed HYDROCODONE-ACETAMINOPHEN 70321421865 No Longer Active Checo Conklin MD Active ONDANSETRON 8 MG ORAL TABLET DISINTEGRATING place one tablet on tongue and allow to dissolve every 6 hours as needed for vomitting ONDANSETRON 28987720597 No Longer Active Checo Conklin MD Activ e COMPRO 25 MG RECTAL SUPPOSITORY insert or apply one garza ppository rectally as directed every 12 hours as needed for nausea PROCHLORPERAZINE 87553624634 No Longer Active Checo Conklin MD A ctive SUMATRIPTAN SUCCINATE 100 MG ORAL TABLET Take one PRN for migran e SUMATRIPTAN SUCCINATE 99919269157 No Longer Active Checo Conklin MD Active TRAVEL SICKNESS 25 MG ORAL TABLET CHEWABLE chew and sw allow one tablet every 6 hours as needed MECLIZINE HCL 82667789187 No Longer A ctive Checo Conklin MD Active BUPROPION HCL ER (SR) 100 MG ORAL TABLET EXTENDED RELE ASE 12 HOUR take one tablet by mouth one time daily for one week then take 1 two times daily BUPROPION HCL 31679532926 No Longer Active Checo gallagher MD Active TERBINAFINE HCL 250 MG ORAL TABLET take one table PO one time da moises TERBINAFINE HCL 07964639370 No Longer Active Checo Conklin MD Active METOCLOPRAMIDE HCL 10 MG ORAL TABLET take one PO tid PRN nausea METOCLOPRAMIDE HCL 28270173299 No Longer Active Checo Conklin MD Active DICLOFENAC SODIUM 75 MG ORAL TABLET DELAYED RELEASE 1 tablet by mouth twice daily PRN Knee pain DICLOFENAC SODIUM 00936487871 No Longer Active Checo Conklin MD Active LAMISIL 250 MG ORAL TABLET 1 po qd TERBINAFI NE HCL 68447793797 No Longer Active Checo Conklin MD Active REGLAN 10 MG ORAL TABLET 1 po TID PRN Nausea 3 METOCLOPRAMIDE HCL 11989584944 No Longer Active Checo Conklin MD Active CELEXA 20 MG ORAL TABLET 1 tablet by mouth daily 09/26 CITALOPRAM HYDROBROMIDE 41218010548 No Longer Active Checo Conklin MD Active AZITHROMYCIN 250 MG ORAL TABLET 2 po qd x 1 day, then 1 po q d x 4 days AZITHROMYCIN 13272069524 No Longer Active Checo Ortiz MD Active HYDROCODONE-ACETAMINOPHEN 5-325 MG ORAL TABLET 1 po q 6hr PRN Pa in HYDROCODONE-ACETAMINOPHEN 94542576597 No Longer Active Lenora Conklin MD Active PHENAZOPYRIDINE HCL 200 MG ORAL TABLET take 1 tab po TID for bladder pain PHENAZOPYRIDINE HCL 55587603718 No Longer Active Joe Conklin MD Active CIPRO 500 MG ORAL TABLET 1 tablet by mouth twice daily CIPROFLOXACIN HCL 17281586162 No Longer Active Dangelo Rangel MD Active HYDROCODONE-ACETAMINOPHEN 5-325 MG ORAL TABLET 1/2 to 1 po q 4 hours prn cough HYDROCODONE-ACETAMINOPHEN 87365430880 No Longer Activ e Dangelo Rangel MD Active BACTRIM DS 800-160 MG ORAL TABLET 1 po BID x 7 days 29/04/10 SULFAMETHOXAZOLE-TRIMETHOPRIM 97900141099 No Longer Active Checo Conklin MD Active PREDNISONE 20 MG ORAL TABLET 2 tabs daily for 3 days, 1 tab daily for 3 days, 1/2 tab daily for 2 days PREDNISONE 81673372919 No Longer Active Checo Conklin MD Active TRIAMCINOLONE ACETONIDE 0.1 % EXTERNAL OINTMENT Apply to affected areas TID for up to 2 weeks TRIAMCINOLONE ACETONIDE 68365201811 No Longer Active Checo Conklin MD Active CEFDINIR 300 MG ORAL CAPSULE by mouth twice a day 2013 CEFDINIR 46804448257 No Longer Active Dangelo Rangel MD Acti ve BUPROPION HCL ER (SMOKING DET) 150 MG ORAL TABLET EXTE NDED RELEASE 12 HOUR 1 a day for 1 week then 1 twice a day BUPROPION HCL (SMOKING DETER) 95395240707 No Longer Active Checo Conklin MD Active SIMVASTATIN 20 MG ORAL TABLET 1 po qd SIMVASTAT IN 65282903976 Active Checo Conklin MD Active CHANTIX STARTING MONTH KARTHIK 0.5 MG X 11 & 1 MG X 42 ORA L TABLET 0.5mg daily for 3 days, then 0.5mg BID for 4 days, then 1mg BID VARENICLINE TARTRATE 39285790677 No Longer Active Checo Conklin MD Activ e XANAX 0.5 MG ORAL TABLET 1 po BID PRN anxiety A LPRAZOLAM 03925171156 Active Checo Conklin MD Active CONCERTA 18 MG ORAL TABLET EXTENDED RELEASE 1 po q a.m. METHYLPHENIDATE HCL 28016944068 No Longer Active Checo Conklin MD Active AMBIEN 5 MG ORAL TABLET 1 po qHS PRN Insomnia Z OLPIDEM TARTRATE 53807528536 Active Checo Conklin MD Active TRAZODONE HCL 100 MG ORAL TABLET 0.5 to 1 po qHS PRN Insomnia 20 30/07/08 TRAZODONE HCL 82895874356 No Longer Active Checo Conklin MD Active FIORICET 325-50-40 MG TAB 1 tablet by mouth four times daily as needed [id number] 80464266009 No Longer Active Checo Conklin MD Active PHENERGAN CREAM* 25mg applied to wrist q6hr PRN Nausea PHENERGAN CREAM* No Longer Active Checo Gonzales ctive FLONASE 50 MCG/ACT NASAL SUSPENSION 1 spray each nostril am and hs FLUTICASONE PROPIONATE 50337396658 No Longer Active Checo Conklin MD Active ANTIPYRINE-BENZOCAINE 5.4-1.4 % OTIC SOLUTION 1-2 drops in affec yohannes ear BENZOCAINE-ANTIPYRINE 32615711686 No Longer Active Checo Conklin MD Active CEFDINIR 300 MG ORAL CAPSULE 1 po bid CEFDINIR 49693681693 No Longer Active Checo Conklin MD Active PREDNISONE 20 MG ORAL TABLET 2 tabs daily for 3 days, 1 tab daily for 3 days, 1/2 tab daily for 2 days PREDNISONE 58889277679 No Longer Active Checo Conklin MD Active AZITHROMYCIN 250 MG ORAL TABLET 2 po qd x 1 day, then 1 po q d x 4 days AZITHROMYCIN 32852263389 No Longer Active Checo Ortiz MD Active PREDNISONE 20 MG ORAL TABLET 2 tabs daily for 3 days, 1 tab daily for 3 days, 1/2 tab daily for 2 days PREDNISONE 47998332133 No Longer Active Checo Conklin MD Active ZITHROMAX Z-KARTHIK 250 MG ORAL TABLET 2 today, then 1 daily for 4 d ays AZITHROMYCIN 97261131587 No Longer Active Paul Hamlin MD Active FOCALIN XR 10 MG ORAL CAPSULE EXTENDED RELEASE 24 HOUR 1 po q a. m. DEXMETHYLPHENIDATE HCL 82140504230 No Longer Active Paul Hamlin MD Active PERCOCET 10-325 MG ORAL TABLET 1 tablet every 6 hours as needed for pain OXYCODONE-ACETAMINOPHEN 52418667619 No Longer Active Paul Hamlin MD Active LORTAB 5-500 MG ORAL TABLET 1/2 to 1 tablet by mouth e very 4 hours as needed for pain HYDROCODONE-ACETAMINOPHEN 84515681986 No Longer Active Checo Conklin MD Active FOCALIN XR 15 MG ORAL CAPSULE EXTENDED RELEASE 24 HOUR 1 po q a. m. DEXMETHYLPHENIDATE HCL 59699521812 No Longer Active Checo Conklin MD Active ZOFRAN ODT 4 MG ORAL TABLET DISINTEGRATING 1 po q6hr PRN Nausea ONDANSETRON 78488940991 No Longer Active Checo Conklin MD Active PERCOCET 5-325 MG ORAL TABLET 1 tablet by mouth every 6 hour s as needed OXYCODONE-ACETAMINOPHEN 47110423150 No Longer Active Checo Conklin MD Active PYRIDIUM 200 MG ORAL TABLET take 1 tab po TID prn urinary pain. PHENAZOPYRIDINE HCL 83184526780 No Longer Active Checo Joshua Active FLUCONAZOLE 150 MG ORAL TABLET take 1 tab po qday once FLUCONAZOLE 44500689343 No Longer Active Dangelo Rangel MD Acti ve CIPRO 500 MG ORAL TABLET 1 tablet by mouth twice daily CIPROFLOXACIN HCL 52852009033 No Longer Active Dangelo Rangel MD Active PYRIDIUM 200 MG ORAL TABLET take 1 tab po TID prn urinary pain. PYRIDIUM 200 MG ORAL TABLET 0111107 PHENAZOPYRIDINE HCL Inactive PERCOCET 5-325 MG ORAL TABLET 1 tablet by mouth every 6 hour s as needed PERCOCET 5-325 MG ORAL TABLET 8935645 OXYCODONE-ACETAMINOPHEN Inactive ZOFRAN ODT 4 MG ORAL TABLET DISINTEGRATING 1 po q6hr PRN Nausea ZOFRAN ODT 4 MG ORAL TABLET DISINTEGRATING 280813 ONDAN SETRON Inactive FOCALIN XR 15 MG [...] for pain PERCOCET 10-325 MG ORAL TABLET 4293033 OXYCODONE-ACETAMI NOPHEN Inactive FOCALIN XR 10 MG ORAL CAPSULE EXTENDED RELEASE 24 HOUR 1 po q a. m. FOCALIN XR 10 MG ORAL CAPSULE EXTENDED RELEASE 24 HOUR DEXMETHYLPHENIDATE HCL Inactive CEFDINIR 300 MG ORAL CAPSULE 1 po bid CEFDINI R 300 MG ORAL CAPSULE 091927 CEFDINIR Inactive ANTIPYRINE-BENZOCAINE 5.4-1.4 % OTIC SOLUTION 1-2 drops in affec yohannes ear ANTIPYRINE-BENZOCAINE 5.4-1.4 % OTIC SOLUTION BENZOCAINE-ANTIPYRINE Inactive FLONASE 50 MCG/ACT NASAL SUSPENSION 1 spray each nostril am and hs FLONASE 50 MCG/ACT NASAL SUSPENSION 7162176 FLUTICASONE PROPIONATE I nactive PHENERGAN CREAM* 25mg applied to wrist q6hr PRN Nausea PHENERGAN CREAM* Inactive FIORICET 325-50-40 MG TAB 1 tablet by mouth four times daily as needed FIORICET 325-50-40 MG TAB ACETAMINOPHEN-C AFF-BUTALBITAL Inactive TRAZODONE HCL 100 MG ORAL TABLET 0.5 to 1 po qHS PRN Insomnia 20 30/07/08 TRAZODONE HCL 100 MG ORAL TABLET 349947 TRAZODONE HCL Inactive CONCERTA 18 MG ORAL [...] cough HYDROCODONE-ACETAMINOPHEN 5-325 MG ORAL TABLET 8 49154 HYDROCODONE-ACETAMINOPHEN Inactive PHENAZOPYRIDINE HCL 200 MG ORAL TABLET take 1 tab po TID for bladder pain PHENAZOPYRIDINE HCL 200 MG ORAL TABLET 2839551 PHENAZOPYRIDINE HCL Inactive HYDROCODONE-ACETAMINOPHEN 5-325 MG ORAL TABLET 1 po q 6hr PRN Pa in HYDROCODONE-ACETAMINOPHEN 5-325 MG ORAL TABLET 649770 HYDROCODONE-ACETAMINOPHEN Inactive CELEXA 20 MG ORAL TABLET 1 tablet by mouth daily 09/26 CELEXA 20 MG ORAL TABLET 600259 CITALOPRAM HYDROBROMIDE Inactive REGLAN 10 MG ORAL TABLET 1 po TID PRN Nausea 3 REGLAN 10 MG ORAL TABLET 804143 METOCLOPRAMIDE HCL Inactive LAMISIL 250 MG ORAL TABLET 1 po qd L AMISIL 250 MG ORAL TABLET 680788 TERBINAFINE HCL Inactive DICLOFENAC SODIUM 75 MG ORAL TABLET DELAYED RELEASE 1 tablet by mouth twice daily PRN Knee pain DICLOFENAC SODIUM 75 MG ORAL TABLET DELAYED RELEASE 941617 DICLOFENAC SODIUM Inactive METOCLOPRAMIDE HCL 10 MG ORAL TABLET take one PO tid PRN nausea METOCLOPRAMIDE HCL 10 MG ORAL TABLET 858764 METOCLOPRAM ZACH HCL Inactive TERBINAFINE HCL 250 MG ORAL TABLET take one table PO one time da moises TERBINAFINE HCL 250 MG ORAL TABLET 980466 TERBINAFINE H CL Inactive BUPROPION HCL ER [...] SICKNESS 25 M G ORAL TABLET CHEWABLE 450550 MECLIZINE HCL Inactive SUMATRIPTAN SUCCINATE 100 MG ORAL TABLET Take one PRN for migran e SUMATRIPTAN SUCCINATE 100 MG ORAL TABLET 889027 SUMATRIPTAN SUCCINATE Inactive COMPRO 25 MG RECTAL SUPPOSITORY insert or apply one garza ppository rectally as directed every 12 hours as needed for nausea COMPRO 25 MG RECTAL SUPPOSITORY 681488 PROCHLORPERAZINE Inactive ONDANSETRON 8 MG ORAL TABLET DISINTEGRATING place one tablet on tongue and allow to dissolve every 6 hours as needed for vomitting ONDANSETRON 8 MG ORAL TABLET DISINTEGRATING 053997 ONDANSETRON Inactive HYDROCODONE-ACETAMINOPHEN 5-325 MG ORAL TABLET 0.5 to 1 tab by mouth every 6 hours as needed HYDROCODONE-ACETAMIN OPHEN 5-325 MG ORAL TABLET 375616 HYDROCODONE-ACETAMINOPHEN Inactive BACTRIM DS 800-160 MG ORAL TABLET 1 tab by mouth twice daily 201 11/23/03 BACTRIM DS 800-160 MG ORAL TABLET 725990 TRIMETHOPRIM-SULFAMETHOXAZOLE Inactive DIFLUCAN 150 MG ORAL TABLET 1 tablet by mouth if neede d, hold until symptoms start DIFLUCAN 150 MG ORAL TABLET 160359 FLUCONAZ OLE Inactive IBUPROFEN 800 MG ORAL TABLET 1 tab every 8 hours with food 03/20 IBUPROFEN 800 MG ORAL TABLET 735942 IBUPROFEN Krupa ctive HYDROCODONE-ACETAMINOPHEN 5-325 MG ORAL TABLET 1 tab b y mouth every 6 hours as needed HYDROCODONE-ACETAMINOPHEN 5-325 MG ORAL TABLET 756284 HYDROCODONE-ACETAMINOPHEN Inactive BACTROBAN 2 % EXTERNAL CREAM Apply to affected area BID for up to 10 days BACTROBAN 2 % EXTERNAL CREAM 007053 MUPIROCIN CA LCIUM Inactive MAGNESIUM CITRATE 1.745 GM/30ML ORAL SOLUTION 150ml po BID P RN Constipation MAGNESIUM CITRATE 1.745 GM/30ML ORAL SOLUTION 10 97992 MAGNESIUM CITRATE Inactive DIFLUCAN 150 MG ORAL TABLET 1 tablet by mouth qod 2015 DIFLUCAN 150 MG ORAL TABLET 582941 FLUCONAZOLE Inactive BACTRIM DS 800-160 MG ORAL TABLET 1 tab by mouth twice daily 201 12/19/26 BACTRIM DS 800-160 MG ORAL TABLET 017663 TRIMETHOPRIM-SULFAMETHOXAZOLE Inactive CLARITIN 10 MG ORAL TABLET 1 tablet by mouth daily as needed for allergies CLARITIN 10 MG ORAL TABLET 514168 LORATADINE I nactive FLUTICASONE PROPIONATE 50 MCG/ACT NASAL SUSPENSION 2 s prays/nostril qd PRN Congestion/Allergies FLUTICASONE PROPION ATE 50 MCG/ACT NASAL SUSPENSION 4013224 FLUTICASONE PROPIONATE Inactive MIRALAX ORAL POWDER 8.5 to 17g po qd PRN Constipation MIRALAX ORAL POWDER 110407 POLYETHYLENE GLYCOL 3350 Inactive CIPRO 500 MG ORAL TABLET 1 tablet by mouth twice daily CIPRO 500 MG ORAL TABLET 014742 CIPROFLOXACIN HCL Inactive FLUCONAZOLE 150 MG ORAL TABLET take 1 tab po qday once FLUCONAZOLE 150 MG ORAL TABLET 840367 FLUCONAZOLE Inactive ZITHROMAX Z-KARTHIK 250 MG ORAL TABLET 2 today, then 1 daily for 4 d ays ZITHROMAX Z-KARTHIK 250 MG ORAL TABLET 529899 AZITHROMYCIN Inactive PREDNISONE 20 MG ORAL TABLET 2 tabs daily for 3 days, 1 tab daily for 3 days, 1/2 tab daily for 2 days PREDNISONE 20 MG ORAL T ABLET 925495 PREDNISONE Inactive AZITHROMYCIN 250 MG ORAL TABLET 2 po qd x 1 day, then 1 po q d x 4 days AZITHROMYCIN 250 MG ORAL TABLET 728422 AZITHROMY SPARKLE Inactive PREDNISONE 20 MG ORAL TABLET 2 tabs daily for 3 days, 1 tab daily for 3 days, 1/2 tab daily for 2 days PREDNISONE 20 MG ORAL TABLET 045820 PREDNISONE Inactive CEFDINIR 300 MG ORAL CAPSULE by mouth twice a day 2013 CEFDINIR 300 MG ORAL CAPSULE 535619 CEFDINIR Inactive TRIAMCINOLONE ACETONIDE 0.1 % EXTERNAL OINTMENT Apply to affected areas TID for up to 2 weeks TRIAMCINOLONE ACETON ZACH 0.1 % EXTERNAL OINTMENT 0559052 TRIAMCINOLONE ACETONIDE Inactive PREDNISONE 20 MG ORAL TABLET 2 tabs daily for 3 days, 1 tab daily for 3 days, 1/2 tab daily for 2 days PREDNISONE 20 MG ORAL T ABLET 153757 PREDNISONE Inactive BACTRIM DS 800-160 MG ORAL TABLET 1 po BID x 7 days 29/04/10 BACTRIM DS 800-160 MG ORAL TABLET 475399 SULFAMETHOXAZOLE-TRIMETHOP RIM Inactive CIPRO 500 MG ORAL TABLET 1 tablet by mouth twice daily CIPRO 500 MG ORAL TABLET 005612 CIPROFLOXACIN HCL Inactive AZITHROMYCIN 250 MG ORAL TABLET 2 po qd x 1 day, then 1 po q d x 4 days AZITHROMYCIN 250 MG ORAL TABLET 504056 AZITHROMY SPARKLE Inactive FLAGYL 500 MG ORAL TABLET 1 tablet by mouth bid 04/13 FLAGYL 500 MG ORAL TABLET 700115 METRONIDAZOLE Inactive AZITHROMYCIN 250 MG ORAL TABLET 2 po qd x 1 day, then 1 po q d x 4 days AZITHROMYCIN 250 MG ORAL TABLET 286239 AZITHROMY SPARKLE Inactive AMOXICILLIN 500 MG ORAL CAPSULE 2 po BID x 10 days 201 01/15/27 AMOXICILLIN 500 MG ORAL CAPSULE 764258 AMOXICILLIN Inactive AMOXICILLIN 500 MG ORAL CAPSULE 2 po BID x 14 days for H. Pylori AMOXICILLIN 500 MG ORAL CAPSULE 249934 AMOXICILLIN Inactive CLARITHROMYCIN 500 MG ORAL TABLET 1 tab po BID x 14 days CLARITHROMYCIN 500 MG ORAL TABLET 489181 CLARITHROMYCIN Inacti ve FLAGYL 500 MG ORAL TABLET 1 tablet by mouth bid 08/29 FLAGYL 500 MG ORAL TABLET 033284 METRONIDAZOLE Inactive PROTONIX 40 MG ORAL TABLET DELAYED RELEASE 1 pill by m outh daily, for acid reflux PROTONIX 40 MG ORAL TABLET DELAYED RELEAS E 615254 PANTOPRAZOLE SODIUM Inactive Immunizations Vaccine Administration Date [...] ... - Chemistry sodium, serum 138 mmol/L 380-217 8611/06/27 carbon dioxide, venous blood 30.3 mmol/L 21.0-32 [...] dipstick 1+ Negative sodium, serum 139 mmol/L 473-446 0114/11/28 carbon dioxide, venous blood 26.0 mmol/L 21.0-32 [...] Negative Encounters Code Encounter Date Provider Facility CPT-08601 Level 4 Est. Patient 11:08:43 CDT Checo Conklin MD [facility] CPT-90931 [id number] Vst-Est Level III 09:37:41 CDT Dangelo Rangel MD [facility] CPT-86397 Level 4 Est. Patient 08:57:51 BOOK ILLUSTRATOR Checo Conklin MD [facility] CPT-44155 Level 3 Est. Patient 11:24:55 BOOK ILLUSTRATOR Efren almendarez [facility] CPT-98623 Level 3 Est. Patient 13:05:44 CDT Paul Hamlin MD [facility] CPT-39536 Level 3 Est. Patient 11:29:55 CDT Checo Conklin MD [facility] CPT-93085 Level 4 Est. Patient 11:08:12 BOOK ILLUSTRATOR Checo Conklin MD [facility] CPT-65565 Level 4 Est. Patient 16:06:48 BOOK ILLUSTRATOR Checo Conklin MD [facility] CPT-96066 Level 3 Est. Patient 09:11:49 CDT Efren almendarez [facility] CPT-90427 Level 2 Est. Patient 19:53:27 CDT Tanner hill MD [facility] CPT-15971 Level 3 Est. Patient 09:15:34 CDT Efren almendarez [facility] CPT-03836 Level 3 Est. Patient 11:28:51 BOOK ILLUSTRATOR Efren almendarez [facility] CPT-74990 Level 4 Est. Patient 13:55:46 BOOK ILLUSTRATOR Checo Conklin MD [facility] CPT-03944 Level 4 Est. Patient 17:10:53 CDT Checo Conklin MD [facility] CPT-44538 Level 3 Est. Patient 15:56:22 CDT Checo Conklin MD [facility] CPT-32457 Level 3 Est. Patient 15:29:07 CDT Checo Conklin MD [facility] CPT-86759 Level 3 Est. Patient 14:38:41 CDT Checo Conklin MD [facility] CPT-34927 Level 3 Est. Patient 15:22:03 BOOK ILLUSTRATOR Thomas reynolds DO [facility] CPT-02053 Level 3 Est. Patient 13:34:17 BOOK ILLUSTRATOR Checo Conklin MD [facility] CPT-00188 Level 3 Est. Patient 12:29:32 CDT Dangelo arroyo MD [facility] CPT-37531 Level 3 Est. Patient 16:53:02 CDT Checo Conklin MD [facility] CPT-20272 Level 3 Est. Patient 16:37:13 CDT Checo Conklin MD [facility] CPT-95870 Level 3 Est. Patient 16:16:59 CDT Paul Hamlin MD [facility] CPT-14504 Level 3 Est. Patient 14:20:13 CDT Dangelo arroyo MD [facility] CPT-30575 Level 4 Est. Patient 11:29:33 CDT Checo Conklin MD [facility] CPT-50858 Level 3 Est. Patient 17:08:31 CDT Checo Conklin MD [facility] CPT-66974 Level 3 Est. Patient 16:50:42 BOOK ILLUSTRATOR Checo Conklin MD [facility] CPT-51411 Level 4 Est. Patient 09:26:08 BOOK ILLUSTRATOR Checo Conklin MD [facility] CPT-54803 Level 3 Est. Patient 11:37:10 CDT Checo Conklin MD [facility] CPT-81400 Level 4 Est. Patient 14:07:38 CDT Checo Conklin MD [facility] CPT-19370 Level 3 Est. Patient 09:54:41 CDT Checo Conklin MD [facility] CPT-25035 Level 3 Est. Patient 11:10:54 CDT Paul Hamlin MD [facility] CPT-31222 Level 3 Est. Patient 14:16:56 BOOK ILLUSTRATOR Cehco Conklin MD [facility] CPT-00553 Level 3 Est. Patient 11:04:11 BOOK ILLUSTRATOR Checo Conklin MD [facility] CPT-33638 Level 3 Est. Patient 17:09:26 CDT Dangelo arroyo MD [facility] CPT-69985 Level 3 Est. Patient 16:54:37 CDT Checo Conklin MD [facility] Procedures Code Procedure Name Date Entry Date Standard Desc ription CPT-02871 Wrist, right, comp 3V - XRAY USE ONLY 09:24:31 CDT CPT-73581 Abd compl w upright - XRAY USE ONLY 1 1:36:54 BOOK ILLUSTRATOR CPT-02827 UA w micro - LAB USE ONLY 17:06:46 CDT 2015 CPT-80796 BHCG Qual - LAB USE ONLY 17:06:46 CDT 05/06 CPT-05341 CMP - LAB USE ONLY 17:06:46 CDT CPT-88133 CBC with Diff - LAB USE ONLY 17:06:45 CDT 2 CPT-91784 Venipuncture Draw Fee 17:06:45 CDT CPT-LR Lesion Removal 19:53:27 CDT CPT-OV Office Visit 11:31:28 CDT CPT-68505 Tubersol 09:39:29 CDT CPT-J2550 Phenergan 25 mg (Promethazine) 13:59:02 BOOK ILLUSTRATOR CPT-J1885 Toradol 60 mg (Ketorolac) 13:59:02 BOOK ILLUSTRATOR 2012
--- OUTSIDE RECORDS SUMMARY | 2019-09-29 01:52 | XMS REPORT | Clinical Summary ---
Author Author Admin, [facility] Address Unknown Phone Unavailable Allergies, Adverse [...] of unspecified sites Insomnia, chronic 307.42 Active Chceo Conklin MD Persistent disorder of initiating or [...] CAPSULE 1 po qd PRN Edema HYDROCHLOROTHIAZIDE 06365402747 Active Checo Conklin MD Ac tive IBUPROFEN 800 MG ORAL TABLET 1 tab every 8 hours as needed for p ain IBUPROFEN 58830929165 Active Dangelo Rangel MD Acti ve PAROXETINE HCL 40 MG ORAL TABLET 1 po qd PAR OXETINE HCL 99655377737 Active Checo Conklin MD Active MIRALAX ORAL POWDER 8.5 to 17g po qd PRN Constipation POLYETHYLENE GLYCOL 3350 32542536203 No Longer Active Checo Conklin MD Active PROTONIX 40 MG ORAL TABLET DELAYED RELEASE 1 pill by [facility] daily, for acid reflux PANTOPRAZOLE SODIUM 51737607831 No Longer Activ e Corry Méndez LPN Active FLAGYL 500 MG ORAL TABLET 1 tablet by mouth bid 08/29 METRONIDAZOLE 44524871463 No Longer Active Corry Méndez LPN Active CLARITHROMYCIN 500 MG ORAL TABLET 1 tab po BID x 14 days CLARITHROMYCIN 34693817087 No Longer Active Corry Méndez LPN Active AMOXICILLIN 500 MG ORAL CAPSULE 2 po BID x 14 days for H. Pylori AMOXICILLIN 60647713594 No Longer Active Corry Méndez LPN Active FLUTICASONE PROPIONATE 50 MCG/ACT NASAL SUSPENSION 2 s prays/nostril qd PRN Congestion/Allergies FLUTICASONE PROPIONATE 7766332953 9 No Longer Active Checo Conklin MD Active AMOXICILLIN 500 MG ORAL CAPSULE 2 po BID x 10 days 201 01/15/27 AMOXICILLIN 82817060034 No Longer Active Checo Conklin MD Activ e CLARITIN 10 MG ORAL TABLET 1 tablet by mouth daily as needed for allergies LORATADINE 24974036846 No Longer Active Checo Ortiz MD Active BACTRIM DS 800-160 MG ORAL TABLET 1 tab by mouth twice daily 201 12/19/26 TRIMETHOPRIM-SULFAMETHOXAZOLE 62720891437 No Longer Active S cott D Denio MD Active DIFLUCAN 150 MG ORAL TABLET 1 tablet by mouth qod 2015 FLUCONAZOLE 91653836034 No Longer Active Efren Medel APRN Act mike AZITHROMYCIN 250 MG ORAL TABLET 2 po qd x 1 day, then 1 po q d x 4 days AZITHROMYCIN 80685160824 No Longer Active Efren flores [employer]ISON OFFICER Active FLAGYL 500 MG ORAL TABLET 1 tablet by mouth bid 04/13 METRONIDAZOLE 65599422490 No Longer Active Checo Conklin MD Acti ve FOCALIN XR 10 MG ORAL CAPSULE EXTENDED RELEASE 24 HOUR 1 po q a.m. DEXMETHYLPHENIDATE HCL 23443717656 Active Checo Conklin MD Active MAGNESIUM CITRATE 1.745 GM/30ML ORAL SOLUTION 150ml po BID P RN Constipation MAGNESIUM CITRATE 17325632918 No Longer Active Checo Conklin MD Active BACTROBAN 2 % EXTERNAL CREAM Apply to affected area BID for up to 10 days MUPIROCIN CALCIUM 80228623893 No Longer Active Checo Conklin MD Active HYDROCODONE-ACETAMINOPHEN 5-325 MG ORAL TABLET 1 tab b y mouth every 6 hours as needed HYDROCODONE-ACETAMINOPHEN 85722977850 No Longer Active Checo Conklin MD Active IBUPROFEN 800 MG ORAL TABLET 1 tab every 8 hours with food 03/20 IBUPROFEN 76110966526 No Longer Active Checo Conklin MD Active DIFLUCAN 150 MG ORAL TABLET 1 tablet by mouth if neede d, hold until symptoms start FLUCONAZOLE 90881064435 No Longer Active Checo Conklin MD Active BACTRIM DS 800-160 MG ORAL TABLET 1 tab by mouth twice daily 201 11/23/03 TRIMETHOPRIM-SULFAMETHOXAZOLE 09546197493 No Longer Active Bonnie Méndez LPN Active HYDROCODONE-ACETAMINOPHEN 5-325 MG ORAL TABLET 0.5 to 1 tab by mouth every 6 hours as needed HYDROCODONE-ACETAMINOPHEN 23327966820 No Longer Active Checo Conklin MD Active ONDANSETRON 8 MG ORAL TABLET DISINTEGRATING place one tablet on tongue and allow to dissolve every 6 hours as needed for vomitting ONDANSETRON 47906100081 No Longer Active Checo Conklin MD Activ e COMPRO 25 MG RECTAL SUPPOSITORY insert or apply one garza ppository rectally as directed every 12 hours as needed for nausea PROCHLORPERAZINE 63524227864 No Longer Active Checo Conklin MD A ctive SUMATRIPTAN SUCCINATE 100 MG ORAL TABLET Take one PRN for migran e SUMATRIPTAN SUCCINATE 42203007979 No Longer Active Checo Conklin MD Active TRAVEL SICKNESS 25 MG ORAL TABLET CHEWABLE chew and sw allow one tablet every 6 hours as needed MECLIZINE HCL 06681243368 No Longer A ctive Checo Conklin MD Active BUPROPION HCL ER (SR) 100 MG ORAL TABLET EXTENDED RELE ASE 12 HOUR take one tablet by mouth one time daily for one week then take 1 two times daily BUPROPION HCL 42337694090 No Longer Active Checo gallagher MD Active TERBINAFINE HCL 250 MG ORAL TABLET take one table PO one time da moises TERBINAFINE HCL 17429009661 No Longer Active Checo Conklin MD Active METOCLOPRAMIDE HCL 10 MG ORAL TABLET take one PO tid PRN nausea METOCLOPRAMIDE HCL 18054128010 No Longer Active Checo Conklin MD Active DICLOFENAC SODIUM 75 MG ORAL TABLET DELAYED RELEASE 1 tablet by mouth twice daily PRN Knee pain DICLOFENAC SODIUM 81712717738 No Longer Active Checo Conklin MD Active LAMISIL 250 MG ORAL TABLET 1 po qd TERBINAFI NE HCL 74312047094 No Longer Active Checo Conklin MD Active REGLAN 10 MG ORAL TABLET 1 po TID PRN Nausea 3 METOCLOPRAMIDE HCL 51900117294 No Longer Active Checo Conklin MD Active CELEXA 20 MG ORAL TABLET 1 tablet by mouth daily 09/26 CITALOPRAM HYDROBROMIDE 73156621447 No Longer Active Checo Conklin MD Active AZITHROMYCIN 250 MG ORAL TABLET 2 po qd x 1 day, then 1 po q d x 4 days AZITHROMYCIN 47901061485 No Longer Active Checo Ortiz MD Active HYDROCODONE-ACETAMINOPHEN 5-325 MG ORAL TABLET 1 po q 6hr PRN Pa in HYDROCODONE-ACETAMINOPHEN 81483900510 No Longer Active Lenora Conklin MD Active PHENAZOPYRIDINE HCL 200 MG ORAL TABLET take 1 tab po TID for bladder pain PHENAZOPYRIDINE HCL 34073826078 No Longer Active Joe Conklin MD Active CIPRO 500 MG ORAL TABLET 1 tablet by mouth twice daily CIPROFLOXACIN HCL 38081828022 No Longer Active Dangelo Rangel MD Active HYDROCODONE-ACETAMINOPHEN 5-325 MG ORAL TABLET 1/2 to 1 po q 4 hours prn cough HYDROCODONE-ACETAMINOPHEN 31295758302 No Longer Activ e Dangelo Rangel MD Active BACTRIM DS 800-160 MG ORAL TABLET 1 po BID x 7 days 29/04/10 SULFAMETHOXAZOLE-TRIMETHOPRIM 20203602659 No Longer Active Checo Conklin MD Active PREDNISONE 20 MG ORAL TABLET 2 tabs daily for 3 days, 1 tab daily for 3 days, 1/2 tab daily for 2 days PREDNISONE 00525531490 No Longer Active Checo Conklin MD Active TRIAMCINOLONE ACETONIDE 0.1 % EXTERNAL OINTMENT Apply to affected areas TID for up to 2 weeks TRIAMCINOLONE ACETONIDE 23790633285 No Longer Active Checo Conklin MD Active CEFDINIR 300 MG ORAL CAPSULE by mouth twice a day 2013 CEFDINIR 82356992585 No Longer Active Dangelo Rangel MD Acti ve BUPROPION HCL ER (SMOKING DET) 150 MG ORAL TABLET EXTE NDED RELEASE 12 HOUR 1 a day for 1 week then 1 twice a day BUPROPION HCL (SMOKING DETER) 20316963488 No Longer Active Checo Conklin MD Active SIMVASTATIN 20 MG ORAL TABLET 1 po qd SIMVASTAT IN 56964789108 Active Checo Conklin MD Active CHANTIX STARTING MONTH KARTHIK 0.5 MG X 11 & 1 MG X 42 ORA L TABLET 0.5mg daily for 3 days, then 0.5mg BID for 4 days, then 1mg BID VARENICLINE TARTRATE 34492707662 No Longer Active Checo Conklin MD Activ e XANAX 0.5 MG ORAL TABLET 1 po BID PRN anxiety A LPRAZOLAM 60309640756 Active Checo Conklin MD Active CONCERTA 18 MG ORAL TABLET EXTENDED RELEASE 1 po q a.m. METHYLPHENIDATE HCL 64949108201 No Longer Active Checo Conklin MD Active AMBIEN 5 MG ORAL TABLET 1 po qHS PRN Insomnia Z OLPIDEM TARTRATE 35519376442 Active Checo Conklin MD Active TRAZODONE HCL 100 MG ORAL TABLET 0.5 to 1 po qHS PRN Insomnia 20 30/07/08 TRAZODONE HCL 54698081025 No Longer Active Checo Conklin MD Active FIORICET 325-50-40 MG TAB 1 tablet by mouth four times daily as needed [id number] 52862953681 No Longer Active Checo Conklin MD Active PHENERGAN CREAM* 25mg applied to wrist q6hr PRN Nausea PHENERGAN CREAM* No Longer Active Checo Gonzales ctive FLONASE 50 MCG/ACT NASAL SUSPENSION 1 spray each nostril am and hs FLUTICASONE PROPIONATE 91645717303 No Longer Active Checo Conklin MD Active ANTIPYRINE-BENZOCAINE 5.4-1.4 % OTIC SOLUTION 1-2 drops in affec yohannes ear BENZOCAINE-ANTIPYRINE 98429996861 No Longer Active Checo Conklin MD Active CEFDINIR 300 MG ORAL CAPSULE 1 po bid CEFDINIR 76407996729 No Longer Active Checo Conklin MD Active PREDNISONE 20 MG ORAL TABLET 2 tabs daily for 3 days, 1 tab daily for 3 days, 1/2 tab daily for 2 days PREDNISONE 70069171694 No Longer Active Checo Conklin MD Active AZITHROMYCIN 250 MG ORAL TABLET 2 po qd x 1 day, then 1 po q d x 4 days AZITHROMYCIN 02938162448 No Longer Active Checo Ortiz MD Active PREDNISONE 20 MG ORAL TABLET 2 tabs daily for 3 days, 1 tab daily for 3 days, 1/2 tab daily for 2 days PREDNISONE 58681125289 No Longer Active Checo Conklin MD Active ZITHROMAX Z-KARTHIK 250 MG ORAL TABLET 2 today, then 1 daily for 4 d ays AZITHROMYCIN 81508600264 No Longer Active Paul Hamlin MD Active FOCALIN XR 10 MG ORAL CAPSULE EXTENDED RELEASE 24 HOUR 1 po q a. m. DEXMETHYLPHENIDATE HCL 33766391278 No Longer Active Paul Hamlin MD Active PERCOCET 10-325 MG ORAL TABLET 1 tablet every 6 hours as needed for pain OXYCODONE-ACETAMINOPHEN 33136356458 No Longer Active Paul Hamlin MD Active LORTAB 5-500 MG ORAL TABLET 1/2 to 1 tablet by mouth e very 4 hours as needed for pain HYDROCODONE-ACETAMINOPHEN 70430640011 No Longer Active Checo Conklin MD Active FOCALIN XR 15 MG ORAL CAPSULE EXTENDED RELEASE 24 HOUR 1 po q a. m. DEXMETHYLPHENIDATE HCL 96679333279 No Longer Active Checo Conklin MD Active ZOFRAN ODT 4 MG ORAL TABLET DISINTEGRATING 1 po q6hr PRN Nausea ONDANSETRON 18769636433 No Longer Active Checo Conklin MD Active PERCOCET 5-325 MG ORAL TABLET 1 tablet by mouth every 6 hour s as needed OXYCODONE-ACETAMINOPHEN 04306456581 No Longer Active Checo Conklin MD Active PYRIDIUM 200 MG ORAL TABLET take 1 tab po TID prn urinary pain. PHENAZOPYRIDINE HCL 95784716120 No Longer Active Checo Joshua Active FLUCONAZOLE 150 MG ORAL TABLET take 1 tab po qday once FLUCONAZOLE 86161882837 No Longer Active Dangelo Rangel MD Acti ve CIPRO 500 MG ORAL TABLET 1 tablet by mouth twice daily CIPROFLOXACIN HCL 29937019943 No Longer Active Dangelo Rangel MD Active PYRIDIUM 200 MG ORAL TABLET take 1 tab po TID prn urinary pain. PYRIDIUM 200 MG ORAL TABLET 1530404 PHENAZOPYRIDINE HCL Inactive PERCOCET 5-325 MG ORAL TABLET 1 tablet by mouth every 6 hour s as needed PERCOCET 5-325 MG ORAL TABLET 9601002 OXYCODONE-ACETAMINOPHEN Inactive ZOFRAN ODT 4 MG ORAL TABLET DISINTEGRATING 1 po q6hr PRN Nausea ZOFRAN ODT 4 MG ORAL TABLET DISINTEGRATING 305352 ONDAN SETRON Inactive FOCALIN XR 15 MG [...] for pain PERCOCET 10-325 MG ORAL TABLET 8423800 OXYCODONE-ACETAMI NOPHEN Inactive FOCALIN XR 10 MG ORAL CAPSULE EXTENDED RELEASE 24 HOUR 1 po q a. m. FOCALIN XR 10 MG ORAL CAPSULE EXTENDED RELEASE 24 HOUR DEXMETHYLPHENIDATE HCL Inactive CEFDINIR 300 MG ORAL CAPSULE 1 po bid CEFDINI R 300 MG ORAL CAPSULE 974041 CEFDINIR Inactive ANTIPYRINE-BENZOCAINE 5.4-1.4 % OTIC SOLUTION 1-2 drops in affec yohannes ear ANTIPYRINE-BENZOCAINE 5.4-1.4 % OTIC SOLUTION BENZOCAINE-ANTIPYRINE Inactive FLONASE 50 MCG/ACT NASAL SUSPENSION 1 spray each nostril am and hs FLONASE 50 MCG/ACT NASAL SUSPENSION 7497343 FLUTICASONE PROPIONATE I nactive PHENERGAN CREAM* 25mg applied to wrist q6hr PRN Nausea PHENERGAN CREAM* Inactive FIORICET 325-50-40 MG TAB 1 tablet by mouth four times daily as needed FIORICET 325-50-40 MG TAB ACETAMINOPHEN-C AFF-BUTALBITAL Inactive TRAZODONE HCL 100 MG ORAL TABLET 0.5 to 1 po qHS PRN Insomnia 20 30/07/08 TRAZODONE HCL 100 MG ORAL TABLET 571025 TRAZODONE HCL Inactive CONCERTA 18 MG ORAL [...] cough HYDROCODONE-ACETAMINOPHEN 5-325 MG ORAL TABLET 8 74174 HYDROCODONE-ACETAMINOPHEN Inactive PHENAZOPYRIDINE HCL 200 MG ORAL TABLET take 1 tab po TID for bladder pain PHENAZOPYRIDINE HCL 200 MG ORAL TABLET 7635799 PHENAZOPYRIDINE HCL Inactive HYDROCODONE-ACETAMINOPHEN 5-325 MG ORAL TABLET 1 po q 6hr PRN Pa in HYDROCODONE-ACETAMINOPHEN 5-325 MG ORAL TABLET 342629 HYDROCODONE-ACETAMINOPHEN Inactive CELEXA 20 MG ORAL TABLET 1 tablet by mouth daily 09/26 CELEXA 20 MG ORAL TABLET 872939 CITALOPRAM HYDROBROMIDE Inactive REGLAN 10 MG ORAL TABLET 1 po TID PRN Nausea 3 REGLAN 10 MG ORAL TABLET 609688 METOCLOPRAMIDE HCL Inactive LAMISIL 250 MG ORAL TABLET 1 po qd L AMISIL 250 MG ORAL TABLET 053892 TERBINAFINE HCL Inactive DICLOFENAC SODIUM 75 MG ORAL TABLET DELAYED RELEASE 1 tablet by mouth twice daily PRN Knee pain DICLOFENAC SODIUM 75 MG ORAL TABLET DELAYED RELEASE 764689 DICLOFENAC SODIUM Inactive METOCLOPRAMIDE HCL 10 MG ORAL TABLET take one PO tid PRN nausea METOCLOPRAMIDE HCL 10 MG ORAL TABLET 905512 METOCLOPRAM ZACH HCL Inactive TERBINAFINE HCL 250 MG ORAL TABLET take one table PO one time da moises TERBINAFINE HCL 250 MG ORAL TABLET 968309 TERBINAFINE H CL Inactive BUPROPION HCL ER [...] SICKNESS 25 M G ORAL TABLET CHEWABLE 730503 MECLIZINE HCL Inactive SUMATRIPTAN SUCCINATE 100 MG ORAL TABLET Take one PRN for migran e SUMATRIPTAN SUCCINATE 100 MG ORAL TABLET 542303 SUMATRIPTAN SUCCINATE Inactive COMPRO 25 MG RECTAL SUPPOSITORY insert or apply one garza ppository rectally as directed every 12 hours as needed for nausea COMPRO 25 MG RECTAL SUPPOSITORY 449733 PROCHLORPERAZINE Inactive ONDANSETRON 8 MG ORAL TABLET DISINTEGRATING place one tablet on tongue and allow to dissolve every 6 hours as needed for vomitting ONDANSETRON 8 MG ORAL TABLET DISINTEGRATING 013938 ONDANSETRON Inactive HYDROCODONE-ACETAMINOPHEN 5-325 MG ORAL TABLET 0.5 to 1 tab by mouth every 6 hours as needed HYDROCODONE-ACETAMIN OPHEN 5-325 MG ORAL TABLET 778388 HYDROCODONE-ACETAMINOPHEN Inactive BACTRIM DS 800-160 MG ORAL TABLET 1 tab by mouth twice daily 201 11/23/03 BACTRIM DS 800-160 MG ORAL TABLET 197980 TRIMETHOPRIM-SULFAMETHOXAZOLE Inactive DIFLUCAN 150 MG ORAL TABLET 1 tablet by mouth if neede d, hold until symptoms start DIFLUCAN 150 MG ORAL TABLET 869233 FLUCONAZ OLE Inactive IBUPROFEN 800 MG ORAL TABLET 1 tab every 8 hours with food 03/20 IBUPROFEN 800 MG ORAL TABLET 220190 IBUPROFEN Krupa ctive HYDROCODONE-ACETAMINOPHEN 5-325 MG ORAL TABLET 1 tab b y mouth every 6 hours as needed HYDROCODONE-ACETAMINOPHEN 5-325 MG ORAL TABLET 057631 HYDROCODONE-ACETAMINOPHEN Inactive BACTROBAN 2 % EXTERNAL CREAM Apply to affected area BID for up to 10 days BACTROBAN 2 % EXTERNAL CREAM 280649 MUPIROCIN CA LCIUM Inactive MAGNESIUM CITRATE 1.745 GM/30ML ORAL SOLUTION 150ml po BID P RN Constipation MAGNESIUM CITRATE 1.745 GM/30ML ORAL SOLUTION 10 09130 MAGNESIUM CITRATE Inactive DIFLUCAN 150 MG ORAL TABLET 1 tablet by mouth qod 2015 DIFLUCAN 150 MG ORAL TABLET 166989 FLUCONAZOLE Inactive BACTRIM DS 800-160 MG ORAL TABLET 1 tab by mouth twice daily 201 12/19/26 BACTRIM DS 800-160 MG ORAL TABLET 093996 TRIMETHOPRIM-SULFAMETHOXAZOLE Inactive CLARITIN 10 MG ORAL TABLET 1 tablet by mouth daily as needed for allergies CLARITIN 10 MG ORAL TABLET 710285 LORATADINE I nactive FLUTICASONE PROPIONATE 50 MCG/ACT NASAL SUSPENSION 2 s prays/nostril qd PRN Congestion/Allergies FLUTICASONE PROPION ATE 50 MCG/ACT NASAL SUSPENSION 3180888 FLUTICASONE PROPIONATE Inactive MIRALAX ORAL POWDER 8.5 to 17g po qd PRN Constipation MIRALAX ORAL POWDER 585778 POLYETHYLENE GLYCOL 3350 Inactive CIPRO 500 MG ORAL TABLET 1 tablet by mouth twice daily CIPRO 500 MG ORAL TABLET 127655 CIPROFLOXACIN HCL Inactive FLUCONAZOLE 150 MG ORAL TABLET take 1 tab po qday once FLUCONAZOLE 150 MG ORAL TABLET 334186 FLUCONAZOLE Inactive ZITHROMAX Z-KARTHIK 250 MG ORAL TABLET 2 today, then 1 daily for 4 d ays ZITHROMAX Z-KARTHIK 250 MG ORAL TABLET 027760 AZITHROMYCIN Inactive PREDNISONE 20 MG ORAL TABLET 2 tabs daily for 3 days, 1 tab daily for 3 days, 1/2 tab daily for 2 days PREDNISONE 20 MG ORAL T ABLET 626085 PREDNISONE Inactive AZITHROMYCIN 250 MG ORAL TABLET 2 po qd x 1 day, then 1 po q d x 4 days AZITHROMYCIN 250 MG ORAL TABLET 496506 AZITHROMY SPARKLE Inactive PREDNISONE 20 MG ORAL TABLET 2 tabs daily for 3 days, 1 tab daily for 3 days, 1/2 tab daily for 2 days PREDNISONE 20 MG ORAL TABLET 986950 PREDNISONE Inactive CEFDINIR 300 MG ORAL CAPSULE by mouth twice a day 2013 CEFDINIR 300 MG ORAL CAPSULE 989023 CEFDINIR Inactive TRIAMCINOLONE ACETONIDE 0.1 % EXTERNAL OINTMENT Apply to affected areas TID for up to 2 weeks TRIAMCINOLONE ACETON ZACH 0.1 % EXTERNAL OINTMENT 0893819 TRIAMCINOLONE ACETONIDE Inactive PREDNISONE 20 MG ORAL TABLET 2 tabs daily for 3 days, 1 tab daily for 3 days, 1/2 tab daily for 2 days PREDNISONE 20 MG ORAL T ABLET 554509 PREDNISONE Inactive BACTRIM DS 800-160 MG ORAL TABLET 1 po BID x 7 days 29/04/10 BACTRIM DS 800-160 MG ORAL TABLET 332572 SULFAMETHOXAZOLE-TRIMETHOP RIM Inactive CIPRO 500 MG ORAL TABLET 1 tablet by mouth twice daily CIPRO 500 MG ORAL TABLET 842691 CIPROFLOXACIN HCL Inactive AZITHROMYCIN 250 MG ORAL TABLET 2 po qd x 1 day, then 1 po q d x 4 days AZITHROMYCIN 250 MG ORAL TABLET 441807 AZITHROMY SPARKLE Inactive FLAGYL 500 MG ORAL TABLET 1 tablet by mouth bid 04/13 FLAGYL 500 MG ORAL TABLET 329608 METRONIDAZOLE Inactive AZITHROMYCIN 250 MG ORAL TABLET 2 po qd x 1 day, then 1 po q d x 4 days AZITHROMYCIN 250 MG ORAL TABLET 407510 AZITHROMY SPARKLE Inactive AMOXICILLIN 500 MG ORAL CAPSULE 2 po BID x 10 days 201 01/15/27 AMOXICILLIN 500 MG ORAL CAPSULE 318612 AMOXICILLIN Inactive AMOXICILLIN 500 MG ORAL CAPSULE 2 po BID x 14 days for H. Pylori AMOXICILLIN 500 MG ORAL CAPSULE 289274 AMOXICILLIN Inactive CLARITHROMYCIN 500 MG ORAL TABLET 1 tab po BID x 14 days CLARITHROMYCIN 500 MG ORAL TABLET 143468 CLARITHROMYCIN Inacti ve FLAGYL 500 MG ORAL TABLET 1 tablet by mouth bid 08/29 FLAGYL 500 MG ORAL TABLET 808581 METRONIDAZOLE Inactive PROTONIX 40 MG ORAL TABLET DELAYED RELEASE 1 pill by m outh daily, for acid reflux PROTONIX 40 MG ORAL TABLET DELAYED RELEAS E 105871 PANTOPRAZOLE SODIUM Inactive Immunizations Vaccine Administration Date [...] ... - Chemistry sodium, serum 138 mmol/L 447-772 0549/06/27 carbon dioxide, venous blood 30.3 mmol/L 21.0-32 [...] dipstick 1+ Negative sodium, serum 139 mmol/L 715-164 0556/11/28 carbon dioxide, venous blood 26.0 mmol/L 21.0-32 [...] Negative Encounters Code Encounter Date Provider Facility CPT-44579 Level 4 Est. Patient 11:08:43 CDT Checo Conklin MD [facility] CPT-03496 [id number] Vst-Est Level III 09:37:41 CDT Dangelo Rangel MD [facility] CPT-74165 Level 4 Est. Patient 08:57:51 DIRECTOR OF CONTENT AND PROGRAMMING Checo Conklin MD [facility] CPT-97400 Level 3 Est. Patient 11:24:55 DIRECTOR OF CONTENT AND PROGRAMMING Efren almendarez [facility] CPT-67150 Level 3 Est. Patient 13:05:44 CDT aPul Hamlin MD [facility] CPT-58530 Level 3 Est. Patient 11:29:55 CDT Checo Conklin MD [facility] CPT-67170 Level 4 Est. Patient 11:08:12 DIRECTOR OF CONTENT AND PROGRAMMING Checo Conklin MD [facility] CPT-07348 Level 4 Est. Patient 16:06:48 DIRECTOR OF CONTENT AND PROGRAMMING Checo Conklin MD [facility] CPT-94659 Level 3 Est. Patient 09:11:49 CDT Efren almendarez [facility] CPT-64635 Level 2 Est. Patient 19:53:27 CDT Tanner hill MD [facility] CPT-26412 Level 3 Est. Patient 09:15:34 CDT Efren almendarez [facility] CPT-41637 Level 3 Est. Patient 11:28:51 DIRECTOR OF CONTENT AND PROGRAMMING Efren almendarez [facility] CPT-79532 Level 4 Est. Patient 13:55:46 DIRECTOR OF CONTENT AND PROGRAMMING Checo Conklin MD [facility] CPT-81772 Level 4 Est. Patient 17:10:53 CDT Checo Conklin MD [facility] CPT-91479 Level 3 Est. Patient 15:56:22 CDT Checo Conklin MD [facility] CPT-86265 Level 3 Est. Patient 15:29:07 CDT Checo Conklin MD [facility] CPT-77054 Level 3 Est. Patient 14:38:41 CDT Checo Conklin MD [facility] CPT-78699 Level 3 Est. Patient 15:22:03 DIRECTOR OF CONTENT AND PROGRAMMING Thomas reynolds DO [facility] CPT-37379 Level 3 Est. Patient 13:34:17 DIRECTOR OF CONTENT AND PROGRAMMING Checo Conklin MD [facility] CPT-82799 Level 3 Est. Patient 12:29:32 CDT Dangelo arroyo MD [facility] CPT-23333 Level 3 Est. Patient 16:53:02 CDT Checo Conklin MD [facility] CPT-56033 Level 3 Est. Patient 16:37:13 CDT Checo Conklin MD [facility] CPT-88164 Level 3 Est. Patient 16:16:59 CDT Paul Hamlin MD [facility] CPT-55685 Level 3 Est. Patient 14:20:13 CDT Dangelo arroyo MD [facility] CPT-57995 Level 4 Est. Patient 11:29:33 CDT Checo Conklin MD [facility] CPT-68290 Level 3 Est. Patient 17:08:31 CDT Checo Conklin MD [facility] CPT-55283 Level 3 Est. Patient 16:50:42 DIRECTOR OF CONTENT AND PROGRAMMING Checo Conklin MD [facility] CPT-97879 Level 4 Est. Patient 09:26:08 DIRECTOR OF CONTENT AND PROGRAMMING Checo Conklin MD [facility] CPT-69831 Level 3 Est. Patient 11:37:10 CDT Checo Conklin MD [facility] CPT-25329 Level 4 Est. Patient 14:07:38 CDT Checo Conklin MD [facility] CPT-70785 Level 3 Est. Patient 09:54:41 CDT Checo Conklin MD [facility] CPT-69327 Level 3 Est. Patient 11:10:54 CDT Palu Hamlin MD [facility] CPT-32902 Level 3 Est. Patient 14:16:56 DIRECTOR OF CONTENT AND PROGRAMMING Checo Conklin MD [facility] CPT-70978 Level 3 Est. Patient 11:04:11 DIRECTOR OF CONTENT AND PROGRAMMING Checo Conklin MD [facility] CPT-00416 Level 3 Est. Patient 17:09:26 CDT Dangelo arroyo MD [facility] CPT-62293 Level 3 Est. Patient 16:54:37 CDT Checo Conklin MD [facility] Procedures Code Procedure Name Date Entry Date Standard Desc ription CPT-39715 Wrist, right, comp 3V - XRAY USE ONLY 09:24:31 CDT CPT-39431 Abd compl w upright - XRAY USE ONLY 1 1:36:54 DIRECTOR OF CONTENT AND PROGRAMMING CPT-04601 UA w micro - LAB USE ONLY 17:06:46 CDT 2015 CPT-35149 [facility] Qual - LAB USE ONLY 17:06:46 CDT 05/06 CPT-30561 CMP - LAB USE ONLY 17:06:46 CDT CPT-96963 CBC with Diff - LAB USE ONLY 17:06:45 CDT 2 CPT-17158 Venipuncture Draw Fee 17:06:45 CDT CPT-LR Lesion Removal 19:53:27 CDT CPT-OV Office Visit 11:31:28 CDT CPT-03644 Tubersol 09:39:29 CDT CPT-J2550 Phenergan 25 mg (Promethazine) 13:59:02 DIRECTOR OF CONTENT AND PROGRAMMING CPT-J1885 Toradol 60 mg (Ketorolac) 13:59:02 DIRECTOR OF CONTENT AND PROGRAMMING 2012
--- OUTSIDE RECORDS SUMMARY | 2019-09-29 01:53 | XMS REPORT | Clinical Summary ---
Author Author Admin, Bethany Gonzales Organization [employer] Address Unknown Phone Unavailable Allergies, Adverse Reactions, [...] Conklin MD Insomnia, unspecified Hyperlipidemia 272.4 Active Cehco Conklin MD Other and unspecified hyperlipidemia Migraine [...] unspecified site Knee pain, right 719.46 Resolved Cheoc Conklin MD Pain in joint involving lower [...] Checo Conklin MD Breast mass, right ICD-611.72 Ozzy Conklin MD Mastalgia ICD-611.71 Inactive Checo Joshua Onychomycosis, toenails ICD-110.1 Inactive Aracelis Conklin MD Insect bite ICD-919.4 Inactive Checo Conklin MD Carbuncle/furuncle NOS ICD-680.9 Inactive Hilaria Conklin MD BRONCHITIS, ACUTE ICD-466.0 Inactive Checo gallagher MD Abdominal pain ICD-789.00 Ozzy ngo MD Knee pain, right ICD-719.46 Inactive Checo gallagher MD Vertigo ICD-780.4 Inactive Checo Conklin MD 2014 Abscess, skin ICD-682.9 Inactive Cehco richey MD Sinusitis ICD-461.9 Inactive Checo Conklin [...] Nausea ICD-787.02 Ozzy Conklin MD 201 02/15/12 Pharyngitis ICD-462 Ozzy Conklin MD Sinusitis, acute ICD-461.9 Ozzy Ortiz MD Medication List Medication Instructions Start Date Stop Date Generic Name NDC Status Provider Patient Instruction HYDROCHLOROTHIAZIDE 12.5 MG ORAL CAPSULE 1 po qd PRN Edema HYDROCHLOROTHIAZIDE [id number] Active Checo Conklin MD Ac tive IBUPROFEN 800 MG ORAL TABLET 1 tab every 8 hours as needed for p ain IBUPROFEN 19201988046 Active Dangelo Rangel MD Acti ve PAROXETINE HCL 40 MG ORAL TABLET 1 po qd PAR OXETINE HCL 25989194295 Active Checo Conklin MD Active MIRALAX ORAL POWDER 8.5 to 17g po qd PRN Constipation POLYETHYLENE GLYCOL 3350 41010127937 No Longer Active Checo Conklin MD Active PROTONIX 40 MG ORAL TABLET DELAYED RELEASE 1 pill by [facility] daily, for acid reflux PANTOPRAZOLE SODIUM 70455520257 No Longer Activ e Corry Méndez LPN Active FLAGYL 500 MG ORAL TABLET 1 tablet by mouth bid 08/29 METRONIDAZOLE 68508861409 No Longer Active Corry Méndez LPN Active CLARITHROMYCIN 500 MG ORAL TABLET 1 tab po BID x 14 days CLARITHROMYCIN 89514116185 No Longer Active Corry Méndez LPN Active AMOXICILLIN 500 MG ORAL CAPSULE 2 po BID x 14 days for H. Pylori AMOXICILLIN 68012567284 No Longer Active Corry Méndez LPN Active FLUTICASONE PROPIONATE 50 MCG/ACT NASAL SUSPENSION 2 s prays/nostril qd PRN Congestion/Allergies FLUTICASONE PROPIONATE 3108958277 9 No Longer Active Checo Conklin MD Active AMOXICILLIN 500 MG ORAL CAPSULE 2 po BID x 10 days 201 01/15/27 AMOXICILLIN 30774212642 No Longer Active Checo Conklin MD Activ e CLARITIN 10 MG ORAL TABLET 1 tablet by mouth daily as needed for allergies LORATADINE 90383632067 No Longer Active Checo Ortiz MD Active BACTRIM DS 800-160 MG ORAL TABLET 1 tab by mouth twice daily 201 12/19/26 TRIMETHOPRIM-SULFAMETHOXAZOLE 72940015410 No Longer Active Ragini Carrillo MD Active DIFLUCAN 150 MG ORAL TABLET 1 tablet by mouth qod 2015 FLUCONAZOLE 60860565378 No Longer Active Efren Medel APRN Act mike AZITHROMYCIN 250 MG ORAL TABLET 2 po qd x 1 day, then 1 po q d x 4 days AZITHROMYCIN 41265846247 No Longer Active Efren flores APRN Active FLAGYL 500 MG ORAL TABLET 1 tablet by mouth bid 04/13 METRONIDAZOLE 76057676678 No Longer Active Checo Conklin MD Acti ve FOCALIN XR 10 MG ORAL CAPSULE EXTENDED RELEASE 24 HOUR 1 po q a.m. DEXMETHYLPHENIDATE HCL 31222749438 Active Checo Conklin MD Active MAGNESIUM CITRATE 1.745 GM/30ML ORAL SOLUTION 150ml po BID P RN Constipation MAGNESIUM CITRATE 04437439154 No Longer Active Checo Conklin MD Active BACTROBAN 2 % EXTERNAL CREAM Apply to affected area BID for up to 10 days MUPIROCIN CALCIUM 04863462881 No Longer Active Checo Conklin MD Active HYDROCODONE-ACETAMINOPHEN 5-325 MG ORAL TABLET 1 tab b y mouth every 6 hours as needed HYDROCODONE-ACETAMINOPHEN 75884349751 No Longer Active Checo Conklin MD Active IBUPROFEN 800 MG ORAL TABLET 1 tab every 8 hours with food 03/20 IBUPROFEN 79245812482 No Longer Active Checo Conklin MD Active DIFLUCAN 150 MG ORAL TABLET 1 tablet by mouth if neede d, hold until symptoms start FLUCONAZOLE 60978454801 No Longer Active Checo Conklin MD Active BACTRIM DS 800-160 MG ORAL TABLET 1 tab by mouth twice daily 201 11/23/03 TRIMETHOPRIM-SULFAMETHOXAZOLE 81045702131 No Longer Active Bonnie Méndez LPN Active HYDROCODONE-ACETAMINOPHEN 5-325 MG ORAL TABLET 0.5 to 1 tab by mouth every 6 hours as needed HYDROCODONE-ACETAMINOPHEN 14935290377 No Longer Active Checo Conklin MD Active ONDANSETRON 8 MG ORAL TABLET DISINTEGRATING place one tablet on tongue and allow to dissolve every 6 hours as needed for vomitting ONDANSETRON 28722502508 No Longer Active Checo Conklin MD Activ e COMPRO 25 MG RECTAL SUPPOSITORY insert or apply one garza ppository rectally as directed every 12 hours as needed for nausea PROCHLORPERAZINE 62838091696 No Longer Active Checo Conklin MD A ctive SUMATRIPTAN SUCCINATE 100 MG ORAL TABLET Take one PRN for migran e SUMATRIPTAN SUCCINATE 83715083084 No Longer Active Checo Conklin MD Active TRAVEL SICKNESS 25 MG ORAL TABLET CHEWABLE chew and sw allow one tablet every 6 hours as needed MECLIZINE HCL 35155448536 No Longer A ctive Checo Conklin MD Active BUPROPION HCL ER (SR) 100 MG ORAL TABLET EXTENDED RELE ASE 12 HOUR take one tablet by mouth one time daily for one week then take 1 two times daily BUPROPION HCL 02964570814 No Longer Active Checo gallagher MD Active TERBINAFINE HCL 250 MG ORAL TABLET take one table PO one time da moises TERBINAFINE HCL 15218025332 No Longer Active Cehco Conklin MD Active METOCLOPRAMIDE HCL 10 MG ORAL TABLET take one PO tid PRN nausea METOCLOPRAMIDE HCL 89232543924 No Longer Active Checo Conklin MD Active DICLOFENAC SODIUM 75 MG ORAL TABLET DELAYED RELEASE 1 tablet by mouth twice daily PRN Knee pain DICLOFENAC SODIUM 54497137635 No Longer Active Checo Conklin MD Active LAMISIL 250 MG ORAL TABLET 1 po qd TERBINAFI NE HCL 91303679074 No Longer Active Checo Conklin MD Active REGLAN 10 MG ORAL TABLET 1 po TID PRN Nausea 3 METOCLOPRAMIDE HCL 17140845189 No Longer Active Checo Conklin MD Active CELEXA 20 MG ORAL TABLET 1 tablet by mouth daily 09/26 CITALOPRAM HYDROBROMIDE 65605828619 No Longer Active Checo Conklin MD Active AZITHROMYCIN 250 MG ORAL TABLET 2 po qd x 1 day, then 1 po q d x 4 days AZITHROMYCIN 65469542935 No Longer Active Checo Ortiz MD Active HYDROCODONE-ACETAMINOPHEN 5-325 MG ORAL TABLET 1 po q 6hr PRN Pa in HYDROCODONE-ACETAMINOPHEN 10666918870 No Longer Active Lenora Conklin MD Active PHENAZOPYRIDINE HCL 200 MG ORAL TABLET take 1 tab po TID for bladder pain PHENAZOPYRIDINE HCL 94235661358 No Longer Active Joe Conklin MD Active CIPRO 500 MG ORAL TABLET 1 tablet by mouth twice daily CIPROFLOXACIN HCL 46747774928 No Longer Active Dangelo Rnagel MD Active HYDROCODONE-ACETAMINOPHEN 5-325 MG ORAL TABLET 1/2 to 1 po q 4 hours prn cough HYDROCODONE-ACETAMINOPHEN 95358340316 No Longer Activ e Dangelo Rangel MD Active BACTRIM DS 800-160 MG ORAL TABLET 1 po BID x 7 days 29/04/10 SULFAMETHOXAZOLE-TRIMETHOPRIM 39741214071 No Longer Active Checo Conklin MD Active PREDNISONE 20 MG ORAL TABLET 2 tabs daily for 3 days, 1 tab daily for 3 days, 1/2 tab daily for 2 days PREDNISONE 25561057312 No Longer Active Checo Conklin MD Active TRIAMCINOLONE ACETONIDE 0.1 % EXTERNAL OINTMENT Apply to affected areas TID for up to 2 weeks TRIAMCINOLONE ACETONIDE 68529560482 No Longer Active Checo Conklin MD Active CEFDINIR 300 MG ORAL CAPSULE by mouth twice a day 2013 CEFDINIR 61938992580 No Longer Active Dangelo Rangel MD Acti ve BUPROPION HCL ER (SMOKING DET) 150 MG ORAL TABLET EXTE NDED RELEASE 12 HOUR 1 a day for 1 week then 1 twice a day BUPROPION HCL (SMOKING DETER) 06896442101 No Longer Active Checo Conklin MD Active SIMVASTATIN 20 MG ORAL TABLET 1 po qd SIMVASTAT IN 39457887966 Active Checo Conklin MD Active CHANTIX STARTING MONTH KARTHIK 0.5 MG X 11 & 1 MG X 42 ORA L TABLET 0.5mg daily for 3 days, then 0.5mg BID for 4 days, then 1mg BID VARENICLINE TARTRATE 97321072756 No Longer Active Checo Conklin MD Activ e XANAX 0.5 MG ORAL TABLET 1 po BID PRN anxiety A LPRAZOLAM 71841920134 Active Checo Conklin MD Active CONCERTA 18 MG ORAL TABLET EXTENDED RELEASE 1 po q a.m. METHYLPHENIDATE HCL 42548724262 No Longer Active Checo Conklin MD Active AMBIEN 5 MG ORAL TABLET 1 po qHS PRN Insomnia Z OLPIDEM TARTRATE 31591158240 Active Checo Conklin MD Active TRAZODONE HCL 100 MG ORAL TABLET 0.5 to 1 po qHS PRN Insomnia 20 30/07/08 TRAZODONE HCL 05459218025 No Longer Active Checo Conklin MD Active FIORICET 325-50-40 MG TAB 1 tablet by mouth four times daily as needed [id number] 48426303144 No Longer Active Checo Conklin MD Active PHENERGAN CREAM* 25mg applied to wrist q6hr PRN Nausea PHENERGAN CREAM* No Longer Active Checo Gonzales ctive FLONASE 50 MCG/ACT NASAL SUSPENSION 1 spray each nostril am and hs FLUTICASONE PROPIONATE 84855064271 No Longer Active Checo Conklin MD Active ANTIPYRINE-BENZOCAINE 5.4-1.4 % OTIC SOLUTION 1-2 drops in affec yohannes ear BENZOCAINE-ANTIPYRINE 35022449049 No Longer Active Checo Conklin MD Active CEFDINIR 300 MG ORAL CAPSULE 1 po bid CEFDINIR 43440524608 No Longer Active Checo Conklin MD Active PREDNISONE 20 MG ORAL TABLET 2 tabs daily for 3 days, 1 tab daily for 3 days, 1/2 tab daily for 2 days PREDNISONE 79256844956 No Longer Active Checo Conklin MD Active AZITHROMYCIN 250 MG ORAL TABLET 2 po qd x 1 day, then 1 po q d x 4 days AZITHROMYCIN 42221973205 No Longer Active Checo Ortiz MD Active PREDNISONE 20 MG ORAL TABLET 2 tabs daily for 3 days, 1 tab daily for 3 days, 1/2 tab daily for 2 days PREDNISONE 93499642501 No Longer Active Checo Conklin MD Active ZITHROMAX Z-KARTHIK 250 MG ORAL TABLET 2 today, then 1 daily for 4 d ays AZITHROMYCIN 07146487495 No Longer Active Paul Hamlin MD Active FOCALIN XR 10 MG ORAL CAPSULE EXTENDED RELEASE 24 HOUR 1 po q a. m. DEXMETHYLPHENIDATE HCL 98219238890 No Longer Active Paul Hamlin MD Active PERCOCET 10-325 MG ORAL TABLET 1 tablet every 6 hours as needed for pain OXYCODONE-ACETAMINOPHEN 87725563632 No Longer Active Paul Hamlin MD Active LORTAB 5-500 MG ORAL TABLET 1/2 to 1 tablet by mouth e very 4 hours as needed for pain HYDROCODONE-ACETAMINOPHEN 03347946526 No Longer Active Checo Conklin MD Active FOCALIN XR 15 MG ORAL CAPSULE EXTENDED RELEASE 24 HOUR 1 po q a. m. DEXMETHYLPHENIDATE HCL 52053246063 No Longer Active Checo Conklin MD Active ZOFRAN ODT 4 MG ORAL TABLET DISINTEGRATING 1 po q6hr PRN Nausea ONDANSETRON 31516036607 No Longer Active Checo Conklin MD Active PERCOCET 5-325 MG ORAL TABLET 1 tablet by mouth every 6 hour s as needed OXYCODONE-ACETAMINOPHEN 65642195685 No Longer Active Checo Conklin MD Active PYRIDIUM 200 MG ORAL TABLET take 1 tab po TID prn urinary pain. PHENAZOPYRIDINE HCL 86064337185 No Longer Active Checo Joshua Active FLUCONAZOLE 150 MG ORAL TABLET take 1 tab po qday once FLUCONAZOLE 78425406946 No Longer Active Dangelo Rangel MD Acti ve CIPRO 500 MG ORAL TABLET 1 tablet by mouth twice daily CIPROFLOXACIN HCL 14624021004 No Longer Active Dangelo Rangel MD Active PYRIDIUM 200 MG ORAL TABLET take 1 tab po TID prn urinary pain. PYRIDIUM 200 MG ORAL TABLET 1628664 PHENAZOPYRIDINE HCL Inactive PERCOCET 5-325 MG ORAL TABLET 1 tablet by mouth every 6 hour s as needed PERCOCET 5-325 MG ORAL TABLET 7273778 OXYCODONE-ACETAMINOPHEN Inactive ZOFRAN ODT 4 MG ORAL TABLET DISINTEGRATING 1 po q6hr PRN Nausea ZOFRAN ODT 4 MG ORAL TABLET DISINTEGRATING 294401 ONDAN SETRON Inactive FOCALIN XR 15 MG [...] for pain PERCOCET 10-325 MG ORAL TABLET 9907997 OXYCODONE-ACETAMI NOPHEN Inactive FOCALIN XR 10 MG ORAL CAPSULE EXTENDED RELEASE 24 HOUR 1 po q a. m. FOCALIN XR 10 MG ORAL CAPSULE EXTENDED RELEASE 24 HOUR DEXMETHYLPHENIDATE HCL Inactive CEFDINIR 300 MG ORAL CAPSULE 1 po bid CEFDINI R 300 MG ORAL CAPSULE 992517 CEFDINIR Inactive ANTIPYRINE-BENZOCAINE 5.4-1.4 % OTIC SOLUTION 1-2 drops in affec yohannes ear ANTIPYRINE-BENZOCAINE 5.4-1.4 % OTIC SOLUTION BENZOCAINE-ANTIPYRINE Inactive FLONASE 50 MCG/ACT NASAL SUSPENSION 1 spray each nostril am and hs FLONASE 50 MCG/ACT NASAL SUSPENSION 8227334 FLUTICASONE PROPIONATE I nactive PHENERGAN CREAM* 25mg applied to wrist q6hr PRN Nausea PHENERGAN CREAM* Inactive FIORICET 325-50-40 MG TAB 1 tablet by mouth four times daily as needed FIORICET 325-50-40 MG TAB ACETAMINOPHEN-C AFF-BUTALBITAL Inactive TRAZODONE HCL 100 MG ORAL TABLET 0.5 to 1 po qHS PRN Insomnia 20 30/07/08 TRAZODONE HCL 100 MG ORAL TABLET 706824 TRAZODONE HCL Inactive CONCERTA 18 MG ORAL [...] cough HYDROCODONE-ACETAMINOPHEN 5-325 MG ORAL TABLET 8 23763 HYDROCODONE-ACETAMINOPHEN Inactive PHENAZOPYRIDINE HCL 200 MG ORAL TABLET take 1 tab po TID for bladder pain PHENAZOPYRIDINE HCL 200 MG ORAL TABLET 9389882 PHENAZOPYRIDINE HCL Inactive HYDROCODONE-ACETAMINOPHEN 5-325 MG ORAL TABLET 1 po q 6hr PRN Pa in HYDROCODONE-ACETAMINOPHEN 5-325 MG ORAL TABLET 827247 HYDROCODONE-ACETAMINOPHEN Inactive CELEXA 20 MG ORAL TABLET 1 tablet by mouth daily 09/26 CELEXA 20 MG ORAL TABLET 766891 CITALOPRAM HYDROBROMIDE Inactive REGLAN 10 MG ORAL TABLET 1 po TID PRN Nausea 3 REGLAN 10 MG ORAL TABLET 516721 METOCLOPRAMIDE HCL Inactive LAMISIL 250 MG ORAL TABLET 1 po qd L AMISIL 250 MG ORAL TABLET 930667 TERBINAFINE HCL Inactive DICLOFENAC SODIUM 75 MG ORAL TABLET DELAYED RELEASE 1 tablet by mouth twice daily PRN Knee pain DICLOFENAC SODIUM 75 MG ORAL TABLET DELAYED RELEASE 847377 DICLOFENAC SODIUM Inactive METOCLOPRAMIDE HCL 10 MG ORAL TABLET take one PO tid PRN nausea METOCLOPRAMIDE HCL 10 MG ORAL TABLET 855652 METOCLOPRAM ZACH HCL Inactive TERBINAFINE HCL 250 MG ORAL TABLET take one table PO one time da moises TERBINAFINE HCL 250 MG ORAL TABLET 947915 TERBINAFINE H CL Inactive BUPROPION HCL ER [...] SICKNESS 25 M G ORAL TABLET CHEWABLE 014456 MECLIZINE HCL Inactive SUMATRIPTAN SUCCINATE 100 MG ORAL TABLET Take one PRN for migran e SUMATRIPTAN SUCCINATE 100 MG ORAL TABLET 501699 SUMATRIPTAN SUCCINATE Inactive COMPRO 25 MG RECTAL SUPPOSITORY insert or apply one garza ppository rectally as directed every 12 hours as needed for nausea COMPRO 25 MG RECTAL SUPPOSITORY 388801 PROCHLORPERAZINE Inactive ONDANSETRON 8 MG ORAL TABLET DISINTEGRATING place one tablet on tongue and allow to dissolve every 6 hours as needed for vomitting ONDANSETRON 8 MG ORAL TABLET DISINTEGRATING 329510 ONDANSETRON Inactive HYDROCODONE-ACETAMINOPHEN 5-325 MG ORAL TABLET 0.5 to 1 tab by mouth every 6 hours as needed HYDROCODONE-ACETAMIN OPHEN 5-325 MG ORAL TABLET 241395 HYDROCODONE-ACETAMINOPHEN Inactive BACTRIM DS 800-160 MG ORAL TABLET 1 tab by mouth twice daily 201 11/23/03 BACTRIM DS 800-160 MG ORAL TABLET 912974 TRIMETHOPRIM-SULFAMETHOXAZOLE Inactive DIFLUCAN 150 MG ORAL TABLET 1 tablet by mouth if neede d, hold until symptoms start DIFLUCAN 150 MG ORAL TABLET 294382 FLUCONAZ OLE Inactive IBUPROFEN 800 MG ORAL TABLET 1 tab every 8 hours with food 03/20 IBUPROFEN 800 MG ORAL TABLET 502333 IBUPROFEN Krupa ctive HYDROCODONE-ACETAMINOPHEN 5-325 MG ORAL TABLET 1 tab b y mouth every 6 hours as needed HYDROCODONE-ACETAMINOPHEN 5-325 MG ORAL TABLET 816448 HYDROCODONE-ACETAMINOPHEN Inactive BACTROBAN 2 % EXTERNAL CREAM Apply to affected area BID for up to 10 days BACTROBAN 2 % EXTERNAL CREAM 068792 MUPIROCIN CA LCIUM Inactive MAGNESIUM CITRATE 1.745 GM/30ML ORAL SOLUTION 150ml po BID P RN Constipation MAGNESIUM CITRATE 1.745 GM/30ML ORAL SOLUTION 10 69729 MAGNESIUM CITRATE Inactive DIFLUCAN 150 MG ORAL TABLET 1 tablet by mouth qod 2015 DIFLUCAN 150 MG ORAL TABLET 266538 FLUCONAZOLE Inactive BACTRIM DS 800-160 MG ORAL TABLET 1 tab by mouth twice daily 201 12/19/26 BACTRIM DS 800-160 MG ORAL TABLET 523001 TRIMETHOPRIM-SULFAMETHOXAZOLE Inactive CLARITIN 10 MG ORAL TABLET 1 tablet by mouth daily as needed for allergies CLARITIN 10 MG ORAL TABLET 473388 LORATADINE I nactive FLUTICASONE PROPIONATE 50 MCG/ACT NASAL SUSPENSION 2 s prays/nostril qd PRN Congestion/Allergies FLUTICASONE PROPION ATE 50 MCG/ACT NASAL SUSPENSION 4994865 FLUTICASONE PROPIONATE Inactive MIRALAX ORAL POWDER 8.5 to 17g po qd PRN Constipation MIRALAX ORAL POWDER 622871 POLYETHYLENE GLYCOL 3350 Inactive CIPRO 500 MG ORAL TABLET 1 tablet by mouth twice daily CIPRO 500 MG ORAL TABLET 229644 CIPROFLOXACIN HCL Inactive FLUCONAZOLE 150 MG ORAL TABLET take 1 tab po qday once FLUCONAZOLE 150 MG ORAL TABLET 935307 FLUCONAZOLE Inactive ZITHROMAX Z-KARTHIK 250 MG ORAL TABLET 2 today, then 1 daily for 4 d ays ZITHROMAX Z-KARTHIK 250 MG ORAL TABLET 031919 AZITHROMYCIN Inactive PREDNISONE 20 MG ORAL TABLET 2 tabs daily for 3 days, 1 tab daily for 3 days, 1/2 tab daily for 2 days PREDNISONE 20 MG ORAL T ABLET 282297 PREDNISONE Inactive AZITHROMYCIN 250 MG ORAL TABLET 2 po qd x 1 day, then 1 po q d x 4 days AZITHROMYCIN 250 MG ORAL TABLET 845528 AZITHROMY SPARKLE Inactive PREDNISONE 20 MG ORAL TABLET 2 tabs daily for 3 days, 1 tab daily for 3 days, 1/2 tab daily for 2 days PREDNISONE 20 MG ORAL TABLET 527752 PREDNISONE Inactive CEFDINIR 300 MG ORAL CAPSULE by mouth twice a day 2013 CEFDINIR 300 MG ORAL CAPSULE 975438 CEFDINIR Inactive TRIAMCINOLONE ACETONIDE 0.1 % EXTERNAL OINTMENT Apply to affected areas TID for up to 2 weeks TRIAMCINOLONE ACETON ZACH 0.1 % EXTERNAL OINTMENT 4673852 TRIAMCINOLONE ACETONIDE Inactive PREDNISONE 20 MG ORAL TABLET 2 tabs daily for 3 days, 1 tab daily for 3 days, 1/2 tab daily for 2 days PREDNISONE 20 MG ORAL T ABLET 568916 PREDNISONE Inactive BACTRIM DS 800-160 MG ORAL TABLET 1 po BID x 7 days 29/04/10 BACTRIM DS 800-160 MG ORAL TABLET 179286 SULFAMETHOXAZOLE-TRIMETHOP RIM Inactive CIPRO 500 MG ORAL TABLET 1 tablet by mouth twice daily CIPRO 500 MG ORAL TABLET 964207 CIPROFLOXACIN HCL Inactive AZITHROMYCIN 250 MG ORAL TABLET 2 po qd x 1 day, then 1 po q d x 4 days AZITHROMYCIN 250 MG ORAL TABLET 327920 AZITHROMY SPARKLE Inactive FLAGYL 500 MG ORAL TABLET 1 tablet by mouth bid 04/13 FLAGYL 500 MG ORAL TABLET 239728 METRONIDAZOLE Inactive AZITHROMYCIN 250 MG ORAL TABLET 2 po qd x 1 day, then 1 po q d x 4 days AZITHROMYCIN 250 MG ORAL TABLET 531320 AZITHROMY SPARKLE Inactive AMOXICILLIN 500 MG ORAL CAPSULE 2 po BID x 10 days 201 01/15/27 AMOXICILLIN 500 MG ORAL CAPSULE 946380 AMOXICILLIN Inactive AMOXICILLIN 500 MG ORAL CAPSULE 2 po BID x 14 days for H. Pylori AMOXICILLIN 500 MG ORAL CAPSULE 609482 AMOXICILLIN Inactive CLARITHROMYCIN 500 MG ORAL TABLET 1 tab po BID x 14 days CLARITHROMYCIN 500 MG ORAL TABLET 890229 CLARITHROMYCIN Inacti ve FLAGYL 500 MG ORAL TABLET 1 tablet by mouth bid 08/29 FLAGYL 500 MG ORAL TABLET 432764 METRONIDAZOLE Inactive PROTONIX 40 MG ORAL TABLET DELAYED RELEASE 1 pill by m outh daily, for acid reflux PROTONIX 40 MG ORAL TABLET DELAYED RELEAS E 166260 PANTOPRAZOLE SODIUM Inactive Immunizations Vaccine Administration Date [...] ... - Chemistry sodium, serum 138 mmol/L 969-368 0902/06/27 carbon dioxide, venous blood 30.3 mmol/L 21.0-32 [...] dipstick 1+ Negative sodium, serum 139 mmol/L 010-570 0983/11/28 carbon dioxide, venous blood 26.0 mmol/L 21.0-32 [...] Negative Encounters Code Encounter Date Provider Facility CPT-49235 Level 4 Est. Patient 11:08:43 CDT Checo Conklin MD [facility] CPT-94932 [id number] Vst-Est Level III 09:37:41 CDT Dangelo Rangel MD [facility] CPT-53744 Level 4 Est. Patient 08:57:51 OPERATIONS MANAGEMENT TRAINEE Checo Conklin MD [facility] CPT-89376 Level 3 Est. Patient 11:24:55 OPERATIONS MANAGEMENT TRAINEE Efren almendarez [facility] CPT-31741 Level 3 Est. Patient 13:05:44 CDT Paul Hamlin MD [facility] CPT-66646 Level 3 Est. Patient 11:29:55 CDT Checo Conklin MD [facility] CPT-08743 Level 4 Est. Patient 11:08:12 OPERATIONS MANAGEMENT TRAINEE Checo Conklin MD [facility] CPT-85236 Level 4 Est. Patient 16:06:48 OPERATIONS MANAGEMENT TRAINEE Checo Conklin MD [facility] CPT-73627 Level 3 Est. Patient 09:11:49 CDT Efren almendarez [facility] CPT-44017 Level 2 Est. Patient 19:53:27 CDT Tanner hill MD [facility] CPT-85703 Level 3 Est. Patient 09:15:34 CDT Efren almendarez [facility] CPT-29695 Level 3 Est. Patient 11:28:51 OPERATIONS MANAGEMENT TRAINEE Efren almendarez [facility] CPT-16527 Level 4 Est. Patient 13:55:46 OPERATIONS MANAGEMENT TRAINEE Checo Conklin MD [facility] CPT-01959 Level 4 Est. Patient 17:10:53 CDT Checo Conklin MD [facility] CPT-29320 Level 3 Est. Patient 15:56:22 CDT Checo Conklin MD [facility] CPT-65246 Level 3 Est. Patient 15:29:07 CDT Checo Conklin MD [facility] CPT-38009 Level 3 Est. Patient 14:38:41 CDT Checo Conklin MD [facility] CPT-48315 Level 3 Est. Patient 15:22:03 OPERATIONS MANAGEMENT TRAINEE Thomas reynolds DO [facility] CPT-40764 Level 3 Est. Patient 13:34:17 OPERATIONS MANAGEMENT TRAINEE Checo Conklin MD [facility] CPT-75135 Level 3 Est. Patient 12:29:32 CDT Dangelo arroyo MD [facility] CPT-88135 Level 3 Est. Patient 16:53:02 CDT Checo Conklin MD [facility] CPT-55154 Level 3 Est. Patient 16:37:13 CDT Checo Conklin MD [facility] CPT-33200 Level 3 Est. Patient 16:16:59 CDT Paul Hamlin MD [facility] CPT-62323 Level 3 Est. Patient 14:20:13 CDT Dangelo arroyo MD [facility] CPT-08328 Level 4 Est. Patient 11:29:33 CDT Checo Conklin MD [facility] CPT-42727 Level 3 Est. Patient 17:08:31 CDT Checo Conklin MD [facility] CPT-86465 Level 3 Est. Patient 16:50:42 OPERATIONS MANAGEMENT TRAINEE Checo Conklin MD [facility] CPT-44775 Level 4 Est. Patient 09:26:08 OPERATIONS MANAGEMENT TRAINEE Checo Conklin MD [facility] CPT-57507 Level 3 Est. Patient 11:37:10 CDT Checo Conklin MD [facility] CPT-73558 Level 4 Est. Patient 14:07:38 CDT Checo Conklin MD [facility] CPT-35914 Level 3 Est. Patient 09:54:41 CDT Checo Conklin MD [facility] CPT-87586 Level 3 Est. Patient 11:10:54 CDT Paul Hamlin MD [facility] CPT-67780 Level 3 Est. Patient 14:16:56 OPERATIONS MANAGEMENT TRAINEE Checo Conklin MD [facility] CPT-20020 Level 3 Est. Patient 11:04:11 OPERATIONS MANAGEMENT TRAINEE Checo Conklin MD [facility] CPT-42144 Level 3 Est. Patient 17:09:26 CDT Dangelo arroyo MD [facility] CPT-39235 Level 3 Est. Patient 16:54:37 CDT Checo Conklin MD [facility] Procedures Code Procedure Name Date Entry Date Standard Desc ription CPT-29554 Wrist, right, comp 3V - XRAY USE ONLY 09:24:31 CDT CPT-89862 Abd compl w upright - XRAY USE ONLY 1 1:36:54 OPERATIONS MANAGEMENT TRAINEE CPT-13366 UA w micro - LAB USE ONLY 17:06:46 CDT 2015 CPT-79459 [facility] Qual - LAB USE ONLY 17:06:46 CDT 05/06 CPT-04601 CMP - LAB USE ONLY 17:06:46 CDT CPT-84279 CBC with Diff - LAB USE ONLY 17:06:45 CDT 2 CPT-01383 Venipuncture Draw Fee 17:06:45 CDT CPT-LR Lesion Removal 19:53:27 CDT CPT-OV Office Visit 11:31:28 CDT CPT-51222 Tubersol 09:39:29 CDT CPT-J2550 Phenergan 25 mg (Promethazine) 13:59:02 OPERATIONS MANAGEMENT TRAINEE CPT-J1885 Toradol 60 mg (Ketorolac) 13:59:02 OPERATIONS MANAGEMENT TRAINEE 2012
--- OUTSIDE RECORDS SUMMARY | 2019-09-29 01:53 | XMS REPORT | Clinical Summary ---
Author Author Admin, Bethany Ayala [facility] Address Unknown Phone Unavailable Allergies, [...] CAPSULE 1 po qd PRN Edema HYDROCHLOROTHIAZIDE [id number] Active Checo Conklin MD Ac tive IBUPROFEN 800 MG ORAL TABLET 1 tab every 8 hours as needed for p ain IBUPROFEN 05923064734 Active Dangelo Rangel MD Acti ve PAROXETINE HCL 40 MG ORAL TABLET 1 po qd PAR OXETINE HCL 15263345160 Active Checo Conklin MD Active MIRALAX ORAL POWDER 8.5 to 17g po qd PRN Constipation POLYETHYLENE GLYCOL 3350 98265785610 No Longer Active Checo Conklin MD Active PROTONIX 40 MG ORAL TABLET DELAYED RELEASE 1 pill by [facility] daily, for acid reflux PANTOPRAZOLE SODIUM 65006211617 No Longer Activ e Corry Méndez LPN Active FLAGYL 500 MG ORAL TABLET 1 tablet by mouth bid 08/29 METRONIDAZOLE 15477820743 No Longer Active Corry Méndez LPN Active CLARITHROMYCIN 500 MG ORAL TABLET 1 tab po BID x 14 days CLARITHROMYCIN 74082396183 No Longer Active Corry Méndez LPN Active AMOXICILLIN 500 MG ORAL CAPSULE 2 po BID x 14 days for [facility] AMOXICILLIN 97267559931 No Longer Active Corry Méndez LPN Active FLUTICASONE PROPIONATE 50 MCG/ACT NASAL SUSPENSION 2 s prays/nostril qd PRN Congestion/Allergies FLUTICASONE PROPIONATE 6257725157 9 No Longer Active Checo Conklin MD Active AMOXICILLIN 500 MG ORAL CAPSULE 2 po BID x 10 days 201 01/15/27 AMOXICILLIN 08361279549 No Longer Active Checo Conklin MD Activ e CLARITIN 10 MG ORAL TABLET 1 tablet by mouth daily as needed for allergies LORATADINE 15705626945 No Longer Active Checo Ortiz MD Active BACTRIM DS 800-160 MG ORAL TABLET 1 tab by mouth twice daily 201 12/19/26 TRIMETHOPRIM-SULFAMETHOXAZOLE 03088709541 No Longer Active Ragini Carrillo MD Active DIFLUCAN 150 MG ORAL TABLET 1 tablet by mouth qod 2015 FLUCONAZOLE 85933299247 No Longer Active Efren Medel APRN Act mike AZITHROMYCIN 250 MG ORAL TABLET 2 po qd x 1 day, then 1 po q d x 4 days AZITHROMYCIN 49386891108 No Longer Active Efren flores APRN Active FLAGYL 500 MG ORAL TABLET 1 tablet by mouth bid 04/13 METRONIDAZOLE 45266817781 No Longer Active Checo Conklin MD Acti ve FOCALIN XR 10 MG ORAL CAPSULE EXTENDED RELEASE 24 HOUR 1 po q a.m. DEXMETHYLPHENIDATE HCL 40274904886 Active Checo Conklin MD Active MAGNESIUM CITRATE 1.745 GM/30ML ORAL SOLUTION 150ml po BID P RN Constipation MAGNESIUM CITRATE 06940352859 No Longer Active Checo Conklin MD Active BACTROBAN 2 % EXTERNAL CREAM Apply to affected area BID for up to 10 days MUPIROCIN CALCIUM 99874946617 No Longer Active Checo Conklin MD Active HYDROCODONE-ACETAMINOPHEN 5-325 MG ORAL TABLET 1 tab b y mouth every 6 hours as needed HYDROCODONE-ACETAMINOPHEN 24112859169 No Longer Active Checo Conklin MD Active IBUPROFEN 800 MG ORAL TABLET 1 tab every 8 hours with food 03/20 IBUPROFEN 47002813884 No Longer Active Checo Conklin MD Active DIFLUCAN 150 MG ORAL TABLET 1 tablet by mouth if neede d, hold until symptoms start FLUCONAZOLE 16006056091 No Longer Active Checo Conklin MD Active BACTRIM DS 800-160 MG ORAL TABLET 1 tab by mouth twice daily 201 11/23/03 TRIMETHOPRIM-SULFAMETHOXAZOLE 32652564478 No Longer Active Bonnie Méndez LPN Active HYDROCODONE-ACETAMINOPHEN 5-325 MG ORAL TABLET 0.5 to 1 tab by mouth every 6 hours as needed HYDROCODONE-ACETAMINOPHEN 98858095292 No Longer Active Checo Conklin MD Active ONDANSETRON 8 MG ORAL TABLET DISINTEGRATING place one tablet on tongue and allow to dissolve every 6 hours as needed for vomitting ONDANSETRON 71508104453 No Longer Active Checo Conklin MD Activ e COMPRO 25 MG RECTAL SUPPOSITORY insert or apply one garza ppository rectally as directed every 12 hours as needed for nausea PROCHLORPERAZINE 37095996640 No Longer Active Checo Conklin MD A ctive SUMATRIPTAN SUCCINATE 100 MG ORAL TABLET Take one PRN for migran e SUMATRIPTAN SUCCINATE 06690109002 No Longer Active Checo Conklin MD Active TRAVEL SICKNESS 25 MG ORAL TABLET CHEWABLE chew and sw allow one tablet every 6 hours as needed MECLIZINE HCL 09248521192 No Longer A ctive Checo Conklin MD Active BUPROPION HCL ER (SR) 100 MG ORAL TABLET EXTENDED RELE ASE 12 HOUR take one tablet by mouth one time daily for one week then take 1 two times daily BUPROPION HCL 65411155622 No Longer Active Checo gallagher MD Active TERBINAFINE HCL 250 MG ORAL TABLET take one table PO one time da moises TERBINAFINE HCL 55031872285 No Longer Active Checo Conklin MD Active METOCLOPRAMIDE HCL 10 MG ORAL TABLET take one PO tid PRN nausea METOCLOPRAMIDE HCL 11879750374 No Longer Active Checo Conklin MD Active DICLOFENAC SODIUM 75 MG ORAL TABLET DELAYED RELEASE 1 tablet by mouth twice daily PRN Knee pain DICLOFENAC SODIUM 06960724096 No Longer Active Checo Conklin MD Active LAMISIL 250 MG ORAL TABLET 1 po qd TERBINAFI NE HCL 71339429024 No Longer Active Checo Conklin MD Active REGLAN 10 MG ORAL TABLET 1 po TID PRN Nausea 3 METOCLOPRAMIDE HCL 86201903272 No Longer Active Checo Conklin MD Active CELEXA 20 MG ORAL TABLET 1 tablet by mouth daily 09/26 CITALOPRAM HYDROBROMIDE 78383345534 No Longer Active Checo Conklin MD Active AZITHROMYCIN 250 MG ORAL TABLET 2 po qd x 1 day, then 1 po q d x 4 days AZITHROMYCIN 01805603649 No Longer Active Checo Ortiz MD Active HYDROCODONE-ACETAMINOPHEN 5-325 MG ORAL TABLET 1 po q 6hr PRN Pa in HYDROCODONE-ACETAMINOPHEN 36939271904 No Longer Active Lenora Conklin MD Active PHENAZOPYRIDINE HCL 200 MG ORAL TABLET take 1 tab po TID for bladder pain PHENAZOPYRIDINE HCL 22345956811 No Longer Active Joe Conklin MD Active CIPRO 500 MG ORAL TABLET 1 tablet by mouth twice daily CIPROFLOXACIN HCL 77455176374 No Longer Active Dangelo Rangel MD Active HYDROCODONE-ACETAMINOPHEN 5-325 MG ORAL TABLET 1/2 to 1 po q 4 hours prn cough HYDROCODONE-ACETAMINOPHEN 59403157314 No Longer Activ e Dangelo Rangel MD Active BACTRIM DS 800-160 MG ORAL TABLET 1 po BID x 7 days 29/04/10 SULFAMETHOXAZOLE-TRIMETHOPRIM 96803326117 No Longer Active Checo Conklin MD Active PREDNISONE 20 MG ORAL TABLET 2 tabs daily for 3 days, 1 tab daily for 3 days, 1/2 tab daily for 2 days PREDNISONE 92307968417 No Longer Active Checo Conklin MD Active TRIAMCINOLONE ACETONIDE 0.1 % EXTERNAL OINTMENT Apply to affected areas TID for up to 2 weeks TRIAMCINOLONE ACETONIDE 74883154806 No Longer Active Checo Conklin MD Active CEFDINIR 300 MG ORAL CAPSULE by mouth twice a day 2013 CEFDINIR 19849790945 No Longer Active Dangelo Rangel MD Acti ve BUPROPION HCL ER (SMOKING DET) 150 MG ORAL TABLET EXTE NDED RELEASE 12 HOUR 1 a day for 1 week then 1 twice a day BUPROPION HCL (SMOKING DETER) 19821670643 No Longer Active Checo Conklin MD Active SIMVASTATIN 20 MG ORAL TABLET 1 po qd SIMVASTAT IN 81848945217 Active Checo Conklin MD Active CHANTIX STARTING MONTH KARTHIK 0.5 MG X 11 & 1 MG X 42 ORA L TABLET 0.5mg daily for 3 days, then 0.5mg BID for 4 days, then 1mg BID VARENICLINE TARTRATE 62840537029 No Longer Active Checo Conklin MD Activ e XANAX 0.5 MG ORAL TABLET 1 po BID PRN anxiety A LPRAZOLAM 79818281279 Active Checo Conklin MD Active CONCERTA 18 MG ORAL TABLET EXTENDED RELEASE 1 po q a.m. METHYLPHENIDATE HCL 90017458539 No Longer Active Checo Conklin MD Active AMBIEN 5 MG ORAL TABLET 1 po qHS PRN Insomnia Z OLPIDEM TARTRATE 03895427561 Active Checo Conklin MD Active TRAZODONE HCL 100 MG ORAL TABLET 0.5 to 1 po qHS PRN Insomnia 20 30/07/08 TRAZODONE HCL 01681779760 No Longer Active Checo Conklin MD Active FIORICET 325-50-40 MG TAB 1 tablet by mouth four times daily as needed [id number] 02001052353 No Longer Active Checo Conklin MD Active PHENERGAN CREAM* 25mg applied to wrist q6hr PRN Nausea PHENERGAN CREAM* No Longer Active Checo Gonzales ctive FLONASE 50 MCG/ACT NASAL SUSPENSION 1 spray each nostril am and hs FLUTICASONE PROPIONATE 07645084053 No Longer Active Checo Conklin MD Active ANTIPYRINE-BENZOCAINE 5.4-1.4 % OTIC SOLUTION 1-2 drops in affec yohannes ear BENZOCAINE-ANTIPYRINE 21332152759 No Longer Active Checo Conklin MD Active CEFDINIR 300 MG ORAL CAPSULE 1 po bid CEFDINIR 40070152004 No Longer Active Checo Conklin MD Active PREDNISONE 20 MG ORAL TABLET 2 tabs daily for 3 days, 1 tab daily for 3 days, 1/2 tab daily for 2 days PREDNISONE 96590937873 No Longer Active Checo Conklin MD Active AZITHROMYCIN 250 MG ORAL TABLET 2 po qd x 1 day, then 1 po q d x 4 days AZITHROMYCIN 58040787236 No Longer Active Checo Ortiz MD Active PREDNISONE 20 MG ORAL TABLET 2 tabs daily for 3 days, 1 tab daily for 3 days, 1/2 tab daily for 2 days PREDNISONE 88768962468 No Longer Active Checo Conklin MD Active ZITHROMAX Z-KARTHIK 250 MG ORAL TABLET 2 today, then 1 daily for 4 d ays AZITHROMYCIN 20135007789 No Longer Active Paul Hamlin MD Active FOCALIN XR 10 MG ORAL CAPSULE EXTENDED RELEASE 24 HOUR 1 po q a. m. DEXMETHYLPHENIDATE HCL 88427271842 No Longer Active Paul Hamlin MD Active PERCOCET 10-325 MG ORAL TABLET 1 tablet every 6 hours as needed for pain OXYCODONE-ACETAMINOPHEN 58597738221 No Longer Active Paul Hamlin MD Active LORTAB 5-500 MG ORAL TABLET 1/2 to 1 tablet by mouth e very 4 hours as needed for pain HYDROCODONE-ACETAMINOPHEN 24729808458 No Longer Active Checo Conklin MD Active FOCALIN XR 15 MG ORAL CAPSULE EXTENDED RELEASE 24 HOUR 1 po q a. m. DEXMETHYLPHENIDATE HCL 79104745227 No Longer Active Checo Conklin MD Active ZOFRAN ODT 4 MG ORAL TABLET DISINTEGRATING 1 po q6hr PRN Nausea ONDANSETRON 15412173605 No Longer Active Checo Conklin MD Active PERCOCET 5-325 MG ORAL TABLET 1 tablet by mouth every 6 hour s as needed OXYCODONE-ACETAMINOPHEN 54136352091 No Longer Active Checo Conklin MD Active PYRIDIUM 200 MG ORAL TABLET take 1 tab po TID prn urinary pain. PHENAZOPYRIDINE HCL 95873075085 No Longer Active Checo Joshua Active FLUCONAZOLE 150 MG ORAL TABLET take 1 tab po qday once FLUCONAZOLE 79188986889 No Longer Active Dangeol Rangel MD Acti ve CIPRO 500 MG ORAL TABLET 1 tablet by mouth twice daily CIPROFLOXACIN HCL 06679775162 No Longer Active Dangelo Rangel MD Active PYRIDIUM 200 MG ORAL TABLET take 1 tab po TID prn urinary pain. PYRIDIUM 200 MG ORAL TABLET 2604852 PHENAZOPYRIDINE HCL Inactive PERCOCET 5-325 MG ORAL TABLET 1 tablet by mouth every 6 hour s as needed PERCOCET 5-325 MG ORAL TABLET 4948545 OXYCODONE-ACETAMINOPHEN Inactive ZOFRAN ODT 4 MG ORAL TABLET DISINTEGRATING 1 po q6hr PRN Nausea ZOFRAN ODT 4 MG ORAL TABLET DISINTEGRATING 896354 ONDAN SETRON Inactive FOCALIN XR 15 MG [...] for pain PERCOCET 10-325 MG ORAL TABLET 9291279 OXYCODONE-ACETAMI NOPHEN Inactive FOCALIN XR 10 MG ORAL CAPSULE EXTENDED RELEASE 24 HOUR 1 po q a. m. FOCALIN XR 10 MG ORAL CAPSULE EXTENDED RELEASE 24 HOUR DEXMETHYLPHENIDATE HCL Inactive CEFDINIR 300 MG ORAL CAPSULE 1 po bid CEFDINI R 300 MG ORAL CAPSULE 048189 CEFDINIR Inactive ANTIPYRINE-BENZOCAINE 5.4-1.4 % OTIC SOLUTION 1-2 drops in affec yohannes ear ANTIPYRINE-BENZOCAINE 5.4-1.4 % OTIC SOLUTION BENZOCAINE-ANTIPYRINE Inactive FLONASE 50 MCG/ACT NASAL SUSPENSION 1 spray each nostril am and hs FLONASE 50 MCG/ACT NASAL SUSPENSION 2551044 FLUTICASONE PROPIONATE I nactive PHENERGAN CREAM* 25mg applied to wrist q6hr PRN Nausea PHENERGAN CREAM* Inactive FIORICET 325-50-40 MG TAB 1 tablet by mouth four times daily as needed FIORICET 325-50-40 MG TAB ACETAMINOPHEN-C AFF-BUTALBITAL Inactive TRAZODONE HCL 100 MG ORAL TABLET 0.5 to 1 po qHS PRN Insomnia 20 30/07/08 TRAZODONE HCL 100 MG ORAL TABLET 224052 TRAZODONE HCL Inactive CONCERTA 18 MG ORAL [...] cough HYDROCODONE-ACETAMINOPHEN 5-325 MG ORAL TABLET 8 22084 HYDROCODONE-ACETAMINOPHEN Inactive PHENAZOPYRIDINE HCL 200 MG ORAL TABLET take 1 tab po TID for bladder pain PHENAZOPYRIDINE HCL 200 MG ORAL TABLET 6594933 PHENAZOPYRIDINE HCL Inactive HYDROCODONE-ACETAMINOPHEN 5-325 MG ORAL TABLET 1 po q 6hr PRN Pa in HYDROCODONE-ACETAMINOPHEN 5-325 MG ORAL TABLET 135326 HYDROCODONE-ACETAMINOPHEN Inactive CELEXA 20 MG ORAL TABLET 1 tablet by mouth daily 09/26 CELEXA 20 MG ORAL TABLET 101218 CITALOPRAM HYDROBROMIDE Inactive REGLAN 10 MG ORAL TABLET 1 po TID PRN Nausea 3 REGLAN 10 MG ORAL TABLET 915652 METOCLOPRAMIDE HCL Inactive LAMISIL 250 MG ORAL TABLET 1 po qd L AMISIL 250 MG ORAL TABLET 695489 TERBINAFINE HCL Inactive DICLOFENAC SODIUM 75 MG ORAL TABLET DELAYED RELEASE 1 tablet by mouth twice daily PRN Knee pain DICLOFENAC SODIUM 75 MG ORAL TABLET DELAYED RELEASE 311370 DICLOFENAC SODIUM Inactive METOCLOPRAMIDE HCL 10 MG ORAL TABLET take one PO tid PRN nausea METOCLOPRAMIDE HCL 10 MG ORAL TABLET 567055 METOCLOPRAM ZACH HCL Inactive TERBINAFINE HCL 250 MG ORAL TABLET take one table PO one time da moises TERBINAFINE HCL 250 MG ORAL TABLET 479932 TERBINAFINE H CL Inactive BUPROPION HCL ER [...] SICKNESS 25 M G ORAL TABLET CHEWABLE 159054 MECLIZINE HCL Inactive SUMATRIPTAN SUCCINATE 100 MG ORAL TABLET Take one PRN for migran e SUMATRIPTAN SUCCINATE 100 MG ORAL TABLET 950868 SUMATRIPTAN SUCCINATE Inactive COMPRO 25 MG RECTAL SUPPOSITORY insert or apply one garza ppository rectally as directed every 12 hours as needed for nausea COMPRO 25 MG RECTAL SUPPOSITORY 795744 PROCHLORPERAZINE Inactive ONDANSETRON 8 MG ORAL TABLET DISINTEGRATING place one tablet on tongue and allow to dissolve every 6 hours as needed for vomitting ONDANSETRON 8 MG ORAL TABLET DISINTEGRATING 565289 ONDANSETRON Inactive HYDROCODONE-ACETAMINOPHEN 5-325 MG ORAL TABLET 0.5 to 1 tab by mouth every 6 hours as needed HYDROCODONE-ACETAMIN OPHEN 5-325 MG ORAL TABLET 284199 HYDROCODONE-ACETAMINOPHEN Inactive BACTRIM DS 800-160 MG ORAL TABLET 1 tab by mouth twice daily 201 11/23/03 BACTRIM DS 800-160 MG ORAL TABLET 814029 TRIMETHOPRIM-SULFAMETHOXAZOLE Inactive DIFLUCAN 150 MG ORAL TABLET 1 tablet by mouth if neede d, hold until symptoms start DIFLUCAN 150 MG ORAL TABLET 294521 FLUCONAZ OLE Inactive IBUPROFEN 800 MG ORAL TABLET 1 tab every 8 hours with food 03/20 IBUPROFEN 800 MG ORAL TABLET 709617 IBUPROFEN Krupa ctive HYDROCODONE-ACETAMINOPHEN 5-325 MG ORAL TABLET 1 tab b y mouth every 6 hours as needed HYDROCODONE-ACETAMINOPHEN 5-325 MG ORAL TABLET 523639 HYDROCODONE-ACETAMINOPHEN Inactive BACTROBAN 2 % EXTERNAL CREAM Apply to affected area BID for up to 10 days BACTROBAN 2 % EXTERNAL CREAM 382382 MUPIROCIN CA LCIUM Inactive MAGNESIUM CITRATE 1.745 GM/30ML ORAL SOLUTION 150ml po BID P RN Constipation MAGNESIUM CITRATE 1.745 GM/30ML ORAL SOLUTION 10 90129 MAGNESIUM CITRATE Inactive DIFLUCAN 150 MG ORAL TABLET 1 tablet by mouth qod 2015 DIFLUCAN 150 MG ORAL TABLET 079545 FLUCONAZOLE Inactive BACTRIM DS 800-160 MG ORAL TABLET 1 tab by mouth twice daily 201 12/19/26 BACTRIM DS 800-160 MG ORAL TABLET 754314 TRIMETHOPRIM-SULFAMETHOXAZOLE Inactive CLARITIN 10 MG ORAL TABLET 1 tablet by mouth daily as needed for allergies CLARITIN 10 MG ORAL TABLET 153439 LORATADINE I nactive FLUTICASONE PROPIONATE 50 MCG/ACT NASAL SUSPENSION 2 s prays/nostril qd PRN Congestion/Allergies FLUTICASONE PROPION ATE 50 MCG/ACT NASAL SUSPENSION 9099520 FLUTICASONE PROPIONATE Inactive MIRALAX ORAL POWDER 8.5 to 17g po qd PRN Constipation MIRALAX ORAL POWDER 930117 POLYETHYLENE GLYCOL 3350 Inactive CIPRO 500 MG ORAL TABLET 1 tablet by mouth twice daily CIPRO 500 MG ORAL TABLET 694637 CIPROFLOXACIN HCL Inactive FLUCONAZOLE 150 MG ORAL TABLET take 1 tab po qday once FLUCONAZOLE 150 MG ORAL TABLET 468895 FLUCONAZOLE Inactive ZITHROMAX Z-KARTHIK 250 MG ORAL TABLET 2 today, then 1 daily for 4 d ays ZITHROMAX Z-KARTHIK 250 MG ORAL TABLET 033505 AZITHROMYCIN Inactive PREDNISONE 20 MG ORAL TABLET 2 tabs daily for 3 days, 1 tab daily for 3 days, 1/2 tab daily for 2 days PREDNISONE 20 MG ORAL T ABLET 852220 PREDNISONE Inactive AZITHROMYCIN 250 MG ORAL TABLET 2 po qd x 1 day, then 1 po q d x 4 days AZITHROMYCIN 250 MG ORAL TABLET 433541 AZITHROMY SPARKLE Inactive PREDNISONE 20 MG ORAL TABLET 2 tabs daily for 3 days, 1 tab daily for 3 days, 1/2 tab daily for 2 days PREDNISONE 20 MG ORAL TABLET 890508 PREDNISONE Inactive CEFDINIR 300 MG ORAL CAPSULE by mouth twice a day 2013 CEFDINIR 300 MG ORAL CAPSULE 982016 CEFDINIR Inactive TRIAMCINOLONE ACETONIDE 0.1 % EXTERNAL OINTMENT Apply to affected areas TID for up to 2 weeks TRIAMCINOLONE ACETON ZACH 0.1 % EXTERNAL OINTMENT 6625315 TRIAMCINOLONE ACETONIDE Inactive PREDNISONE 20 MG ORAL TABLET 2 tabs daily for 3 days, 1 tab daily for 3 days, 1/2 tab daily for 2 days PREDNISONE 20 MG ORAL T ABLET 424365 PREDNISONE Inactive BACTRIM DS 800-160 MG ORAL TABLET 1 po BID x 7 days 29/04/10 BACTRIM DS 800-160 MG ORAL TABLET 239808 SULFAMETHOXAZOLE-TRIMETHOP RIM Inactive CIPRO 500 MG ORAL TABLET 1 tablet by mouth twice daily CIPRO 500 MG ORAL TABLET 484031 CIPROFLOXACIN HCL Inactive AZITHROMYCIN 250 MG ORAL TABLET 2 po qd x 1 day, then 1 po q d x 4 days AZITHROMYCIN 250 MG ORAL TABLET 094853 AZITHROMY SPARKLE Inactive FLAGYL 500 MG ORAL TABLET 1 tablet by mouth bid 04/13 FLAGYL 500 MG ORAL TABLET 073703 METRONIDAZOLE Inactive AZITHROMYCIN 250 MG ORAL TABLET 2 po qd x 1 day, then 1 po q d x 4 days AZITHROMYCIN 250 MG ORAL TABLET 446803 AZITHROMY SPARKLE Inactive AMOXICILLIN 500 MG ORAL CAPSULE 2 po BID x 10 days 201 01/15/27 AMOXICILLIN 500 MG ORAL CAPSULE 196416 AMOXICILLIN Inactive AMOXICILLIN 500 MG ORAL CAPSULE 2 po BID x 14 days for [facility] P[facility] AMOXICILLIN 500 MG ORAL CAPSULE 535818 AMOXICILLIN Inactive CLARITHROMYCIN 500 MG ORAL TABLET 1 tab po BID x 14 days CLARITHROMYCIN 500 MG ORAL TABLET 824052 CLARITHROMYCIN Inacti ve FLAGYL 500 MG ORAL TABLET 1 tablet by mouth bid 08/29 FLAGYL 500 MG ORAL TABLET 345772 METRONIDAZOLE Inactive PROTONIX 40 MG ORAL TABLET DELAYED RELEASE 1 pill by m outh daily, for acid reflux PROTONIX 40 MG ORAL TABLET DELAYED RELEAS E 921955 PANTOPRAZOLE SODIUM Inactive Immunizations Vaccine Administration Date [...] 11 .6-14.8 platelet count 215 10^3/MM^3 10*3/mm3 640-224 6875/11/28 erythrocyte (RBC) count 4.17 10^6/MM^3 10*6/mm3 3.80-5.8 [...] 2.81 m[iU]/mL 0.36-3.74 sodium, serum 138 mmol/L 783-149 0633/06/27 carbon dioxide, venous blood 30.3 mmol/L 21.0-32 .0 potassium, serum 4.4 mmol/L 3.5-5.2 Lab Report: Comp. Metabolic Panel, Eryth rocyte Sed Rate, UADIP W/MICRO, ... - Chemistry protein, total urine random Negative mg/dL Negative RBC, urine, dipstick 1+ Negative sodium, serum 139 mmol/L 425-975 3912/11/28 carbon dioxide, venous blood 26.0 mmol/L 21.0-32 [...] Negative Encounters Code Encounter Date Provider Facility CPT-76019 Level 4 Est. Patient 11:08:43 CDT Checo Conklin MD [facility] CPT-28015 29180-Rol Vst-Est Level III 09:37:41 CDT Dangelo Rangel MD [facility] CPT-02709 Level 4 Est. Patient 08:57:51 PARI MUTUEL CLERK Checo Conklin MD [facility] CPT-46868 Level 3 Est. Patient 11:24:55 PARI MUTUEL CLERK Efren almendarez [facility] [place] CPT-40125 Level 3 Est. Patient 13:05:44 CDT Paul Hamlin MD [facility] CPT-83896 Level 3 Est. Patient 11:29:55 CDT Checo Conklin MD [facility] CPT-25073 Level 4 Est. Patient 11:08:12 PARI MUTUEL CLERK Checo Conklin MD [facility] CPT-51599 Level 4 Est. Patient 16:06:48 PARI MUTUEL CLERK Checo Conklin MD [facility] CPT-15636 Level 3 Est. Patient 09:11:49 CDT Efren almendarez [facility] [place] CPT-35959 Level 2 Est. Patient 19:53:27 CDT Tanner hill MD [facility] CPT-62768 Level 3 Est. Patient 09:15:34 CDT Efren almendarez [facility] [place] CPT-69823 Level 3 Est. Patient 11:28:51 PARI MUTUEL CLERK Efren almendarez [facility] [place] CPT-52816 Level 4 Est. Patient 13:55:46 PARI MUTUEL CLERK Checo Conklin MD [facility] CPT-90047 Level 4 Est. Patient 17:10:53 CDT Checo Conklin MD [facility] CPT-17467 Level 3 Est. Patient 15:56:22 CDT Checo Conklin MD [facility] CPT-04896 Level 3 Est. Patient 15:29:07 CDT Checo Conklin MD [facility] CPT-95285 Level 3 Est. Patient 14:38:41 CDT Checo Conklin MD [facility] CPT-47801 Level 3 Est. Patient 15:22:03 PARI MUTUEL CLERK Thomas reynolds DO [facility] CPT-80187 Level 3 Est. Patient 13:34:17 PARI MUTUEL CLERK Checo Conklin MD [facility] CPT-48404 Level 3 Est. Patient 12:29:32 CDT Dangelo arroyo MD [facility] CPT-37055 Level 3 Est. Patient 16:53:02 CDT Checo Conklin MD [facility] CPT-81039 Level 3 Est. Patient 16:37:13 CDT Checo Conklin MD [facility] CPT-73597 Level 3 Est. Patient 16:16:59 CDT Paul Hamlin MD [facility] CPT-96651 Level 3 Est. Patient 14:20:13 CDT Dangelo arroyo MD [facility] CPT-93751 Level 4 Est. Patient 11:29:33 CDT Checo Conklin MD [facility] CPT-74483 Level 3 Est. Patient 17:08:31 CDT Checo Conklin MD [facility] CPT-32309 Level 3 Est. Patient 16:50:42 PARI MUTUEL CLERK Checo Conklin MD [facility] CPT-53354 Level 4 Est. Patient 09:26:08 PARI MUTUEL CLERK Checo Conklin MD [facility] CPT-32788 Level 3 Est. Patient 11:37:10 CDT Checo Conklin MD [facility] CPT-89363 Level 4 Est. Patient 14:07:38 CDT Checo Conklin MD [facility] CPT-50114 Level 3 Est. Patient 09:54:41 CDT Checo Conklin MD [facility] CPT-17487 Level 3 Est. Patient 11:10:54 CDT Paul Hamlin MD [facility] CPT-44641 Level 3 Est. Patient 14:16:56 PARI MUTUEL CLERK Checo Conklin MD [facility] CPT-79192 Level 3 Est. Patient 11:04:11 PARI MUTUEL CLERK Checo Conklin MD [facility] CPT-27623 Level 3 Est. Patient 17:09:26 CDT Dangelo arroyo MD [facility] CPT-14809 Level 3 Est. Patient 16:54:37 CDT Checo Conklin MD [facility] Procedures Code Procedure Name Date Entry Date Standard Desc ription CPT-80369 Wrist, right, comp 3V - XRAY USE ONLY 09:24:31 CDT CPT-47140 Abd compl w upright - XRAY USE ONLY 1 1:36:54 PARI MUTUEL CLERK CPT-53440 UA w micro - LAB USE ONLY 17:06:46 CDT 2015 CPT-64442 BHCG Qual - LAB USE ONLY 17:06:46 CDT 05/06 CPT-67049 CMP - LAB USE ONLY 17:06:46 CDT CPT-16306 CBC with Diff - LAB USE ONLY 17:06:45 CDT 2 CPT-20185 Venipuncture Draw Fee 17:06:45 CDT CPT-LR Lesion Removal 19:53:27 CDT CPT-OV Office Visit 11:31:28 CDT CPT-25048 Tubersol 09:39:29 CDT CPT-J2550 Phenergan 25 mg (Promethazine) 13:59:02 PARI MUTUEL CLERK CPT-J1885 Toradol 60 mg (Ketorolac) 13:59:02 PARI MUTUEL CLERK 2012
--- OUTSIDE RECORDS SUMMARY | 2019-09-29 01:53 | XMS REPORT | Clinical Summary ---
Author Author Admin, Bethany Ayala Webymaster [facility] Address Unknown Phone Unavailable Allergies, Adverse [...] hours as needed for p ain IBUPROFEN [id number] Active Dangelo Rangel MD Acti ve PAROXETINE HCL 40 MG ORAL TABLET 1 po qd PAR OXETINE HCL 90149675024 Active Checo Conklin MD Active MIRALAX ORAL POWDER 8.5 to 17g po qd PRN Constipation POLYETHYLENE GLYCOL 3350 70888460628 No Longer Active Checo Conklin MD Active PROTONIX 40 MG ORAL TABLET DELAYED RELEASE 1 pill by [facility] daily, for acid reflux PANTOPRAZOLE SODIUM 13189926002 No Longer Activ e Corry Méndez LPN Active FLAGYL 500 MG ORAL TABLET 1 tablet by mouth bid 08/29 METRONIDAZOLE 28870030450 No Longer Active Corry Méndez LPN Active CLARITHROMYCIN 500 MG ORAL TABLET 1 tab po BID x 14 days CLARITHROMYCIN 87672862850 No Longer Active Corry Méndez LPN Active AMOXICILLIN 500 MG ORAL CAPSULE 2 po BID x 14 days for H. Pylori AMOXICILLIN 27938154664 No Longer Active Corry Méndez LPN Active FLUTICASONE PROPIONATE 50 MCG/ACT NASAL SUSPENSION 2 s prays/nostril qd PRN Congestion/Allergies FLUTICASONE PROPIONATE 5885433328 9 No Longer Active Checo Conklin MD Active AMOXICILLIN 500 MG ORAL CAPSULE 2 po BID x 10 days 201 01/15/27 AMOXICILLIN 45545243046 No Longer Active Checo Conklin MD Activ e CLARITIN 10 MG ORAL TABLET 1 tablet by mouth daily as needed for allergies LORATADINE 11346184025 No Longer Active Checo Ortiz MD Active BACTRIM DS 800-160 MG ORAL TABLET 1 tab by mouth twice daily 201 12/19/26 TRIMETHOPRIM-SULFAMETHOXAZOLE 71311857243 No Longer Active Ragini Carrillo MD Active DIFLUCAN 150 MG ORAL TABLET 1 tablet by mouth qod 2015 FLUCONAZOLE 84649361412 No Longer Active 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 DEXMETHYLPHENIDATE HCL 11006052645 Active Checo Conklin MD Active MAGNESIUM CITRATE 1.745 GM/30ML ORAL SOLUTION 150ml po BID P RN Constipation MAGNESIUM CITRATE 29782107035 No Longer Active Checo Conklin MD Active BACTROBAN 2 % EXTERNAL CREAM Apply to affected area BID for up to 10 days MUPIROCIN CALCIUM 56590422679 No Longer Active Checo Conklin MD Active HYDROCODONE-ACETAMINOPHEN 5-325 MG ORAL TABLET 1 tab b y mouth every 6 hours as needed HYDROCODONE-ACETAMINOPHEN 81541945162 No Longer Active Checo Conklin MD Active IBUPROFEN 800 MG ORAL TABLET 1 tab every 8 hours with food 03/20 IBUPROFEN 31968657749 No Longer Active Checo Conklin MD Active DIFLUCAN 150 MG ORAL TABLET 1 tablet by mouth if neede d, hold until symptoms start FLUCONAZOLE 27916650045 No Longer Active Checo Conklin MD Active BACTRIM DS 800-160 MG ORAL TABLET 1 tab by mouth twice daily 201 11/23/03 TRIMETHOPRIM-SULFAMETHOXAZOLE 72310631478 No Longer Active K bernice Méndez, [employer] Active HYDROCODONE-ACETAMINOPHEN 5-325 MG ORAL TABLET 0.5 to 1 tab by mouth every 6 hours as needed HYDROCODONE-ACETAMINOPHEN 06022069894 No Longer Active Checo Conklin MD Active ONDANSETRON 8 MG ORAL TABLET DISINTEGRATING place one tablet on tongue and allow to dissolve every 6 hours as needed for vomitting ONDANSETRON 27129971918 No Longer Active Checo Conklin MD Activ e COMPRO 25 MG RECTAL SUPPOSITORY insert or apply one garza ppository rectally as directed every 12 hours as needed for nausea PROCHLORPERAZINE 63564701786 No Longer Active Checo Conklin MD A ctive SUMATRIPTAN SUCCINATE 100 MG ORAL TABLET Take one PRN for migran e SUMATRIPTAN SUCCINATE 87631970082 No Longer Active Checo Conklin MD Active TRAVEL SICKNESS 25 MG ORAL TABLET CHEWABLE chew and sw allow one tablet every 6 hours as needed MECLIZINE HCL 03043936146 No Longer A ctive Checo Conklin MD Active BUPROPION HCL ER (SR) 100 MG ORAL TABLET EXTENDED RELE ASE 12 HOUR take one tablet by mouth one time daily for one week then take 1 two times daily BUPROPION HCL 93284965841 No Longer Active Checo gallagher MD Active TERBINAFINE HCL 250 MG ORAL TABLET take one table PO one time da moises TERBINAFINE HCL 97883980616 No Longer Active Checo Conklin MD Active METOCLOPRAMIDE HCL 10 MG ORAL TABLET take one PO tid PRN nausea METOCLOPRAMIDE HCL 44740931399 No Longer Active Checo Conklin MD Active DICLOFENAC SODIUM 75 MG ORAL TABLET DELAYED RELEASE 1 tablet by mouth twice daily PRN Knee pain DICLOFENAC SODIUM 98493352089 No Longer Active Checo Conklin MD Active LAMISIL 250 MG ORAL TABLET 1 po qd TERBINAFI NE HCL 14289992569 No Longer Active Checo Conklin MD Active REGLAN 10 MG ORAL TABLET 1 po TID PRN Nausea 3 METOCLOPRAMIDE HCL 78495908656 No Longer Active Checo Conklin MD Active CELEXA 20 MG ORAL TABLET 1 tablet by mouth daily 09/26 CITALOPRAM HYDROBROMIDE 07344049273 No Longer Active Checo Conklin MD Active AZITHROMYCIN 250 MG ORAL TABLET 2 po qd x 1 day, then 1 po q d x 4 days AZITHROMYCIN 11606300939 No Longer Active Checo Ortiz MD Active HYDROCODONE-ACETAMINOPHEN 5-325 MG ORAL TABLET 1 po q 6hr PRN Pa in HYDROCODONE-ACETAMINOPHEN 75406733157 No Longer Active Lenora Conklin MD Active PHENAZOPYRIDINE HCL 200 MG ORAL TABLET take 1 tab po TID for bladder pain PHENAZOPYRIDINE HCL 59831744519 No Longer Active Joe Conklin MD Active CIPRO 500 MG ORAL TABLET 1 tablet by mouth twice daily CIPROFLOXACIN HCL 71881338858 No Longer Active Dangelo Rangel MD Active HYDROCODONE-ACETAMINOPHEN 5-325 MG ORAL TABLET 1/2 to 1 po q 4 hours prn cough HYDROCODONE-ACETAMINOPHEN 85387825199 No Longer Activ e Dangelo Rangel MD Active BACTRIM DS 800-160 MG ORAL TABLET 1 po BID x 7 days 29/04/10 SULFAMETHOXAZOLE-TRIMETHOPRIM 52828683627 No Longer Active Checo Conklin MD Active PREDNISONE 20 MG ORAL TABLET 2 tabs daily for 3 days, 1 tab daily for 3 days, 1/2 tab daily for 2 days PREDNISONE 40603937535 No Longer Active Checo Conklin MD Active TRIAMCINOLONE ACETONIDE 0.1 % EXTERNAL OINTMENT Apply to affected areas TID for up to 2 weeks TRIAMCINOLONE ACETONIDE 51029967946 No Longer Active Checo Conklin MD Active CEFDINIR 300 MG ORAL CAPSULE by mouth twice a day 2013 CEFDINIR 91077835522 No Longer Active Dangelo Rangel MD Acti ve BUPROPION HCL ER (SMOKING DET) 150 MG ORAL TABLET EXTE NDED RELEASE 12 HOUR 1 a day for 1 week then 1 twice a day BUPROPION HCL (SMOKING DETER) 00969573294 No Longer Active Checo Conklin MD Active SIMVASTATIN 20 MG ORAL TABLET 1 po qd SIMVASTAT IN 42089091798 Active Checo Conklin MD Active CHANTIX STARTING MONTH KARTHIK 0.5 MG X 11 & 1 MG X 42 ORA L TABLET 0.5mg daily for 3 days, then 0.5mg BID for 4 days, then 1mg BID VARENICLINE TARTRATE 51596210821 No Longer Active Checo Conklin MD Activ e XANAX 0.5 MG ORAL TABLET 1 po BID PRN anxiety A LPRAZOLAM 44718920626 Active Cehco Conklin MD Active CONCERTA 18 MG ORAL TABLET EXTENDED RELEASE 1 po q a.m. METHYLPHENIDATE HCL 94451871726 No Longer Active Checo Conklin MD Active AMBIEN 5 MG ORAL TABLET 1 po qHS PRN Insomnia Z OLPIDEM TARTRATE 11553826544 Active Checo Conklin MD Active TRAZODONE HCL 100 MG ORAL TABLET 0.5 to 1 po qHS PRN Insomnia 20 30/07/08 TRAZODONE HCL 94250903833 No Longer Active Checo Conklin MD Active FIORICET 325-50-40 MG TAB 1 tablet by mouth four times daily as needed [id number] 47256819987 No Longer Active Checo Conklin MD Active PHENERGAN CREAM* 25mg applied to wrist q6hr PRN Nausea PHENERGAN CREAM* No Longer Active Checo Gonzales ctive FLONASE 50 MCG/ACT NASAL SUSPENSION 1 spray each nostril am and hs FLUTICASONE PROPIONATE 04748123831 No Longer Active Checo Conklin MD Active ANTIPYRINE-BENZOCAINE 5.4-1.4 % OTIC SOLUTION 1-2 drops in affec yohannes ear BENZOCAINE-ANTIPYRINE 34120753724 No Longer Active Checo Conklin MD Active CEFDINIR 300 MG ORAL CAPSULE 1 po bid CEFDINIR 73371676303 No Longer Active Checo Conklin MD Active PREDNISONE 20 MG ORAL TABLET 2 tabs daily for 3 days, 1 tab daily for 3 days, 1/2 tab daily for 2 days PREDNISONE 46987906778 No Longer Active Checo Conklin MD Active AZITHROMYCIN 250 MG ORAL TABLET 2 po qd x 1 day, then 1 po q d x 4 days AZITHROMYCIN 05787935541 No Longer Active Checo Ortiz MD Active PREDNISONE 20 MG ORAL TABLET 2 tabs daily for 3 days, 1 tab daily for 3 days, 1/2 tab daily for 2 days PREDNISONE 21191033001 No Longer Active Checo Conklin MD Active ZITHROMAX Z-KARTHIK 250 MG ORAL TABLET 2 today, then 1 daily for 4 d ays AZITHROMYCIN 18152807590 No Longer Active Paul Hamlin MD Active FOCALIN XR 10 MG ORAL CAPSULE EXTENDED RELEASE 24 HOUR 1 po q a. m. DEXMETHYLPHENIDATE HCL 57984323669 No Longer Active Paul Hamlin MD Active PERCOCET 10-325 MG ORAL TABLET 1 tablet every 6 hours as needed for pain OXYCODONE-ACETAMINOPHEN 76050158413 No Longer Active Paul Hamlin MD Active LORTAB 5-500 MG ORAL TABLET 1/2 to 1 tablet by mouth e very 4 hours as needed for pain HYDROCODONE-ACETAMINOPHEN 73413752978 No Longer Active Checo Conklin MD Active FOCALIN XR 15 MG ORAL CAPSULE EXTENDED RELEASE 24 HOUR 1 po q a. m. DEXMETHYLPHENIDATE HCL 64258187166 No Longer Active Checo Conklin MD Active ZOFRAN ODT 4 MG ORAL TABLET DISINTEGRATING 1 po q6hr PRN Nausea ONDANSETRON 69361062223 No Longer Active Checo Conklin MD Active PERCOCET 5-325 MG ORAL TABLET 1 tablet by mouth every 6 hour s as needed OXYCODONE-ACETAMINOPHEN 46339120735 No Longer Active Checo Conklin MD Active PYRIDIUM 200 MG ORAL TABLET take 1 tab po TID prn urinary pain. PHENAZOPYRIDINE HCL 03277507926 No Longer Active Checo Joshua Active FLUCONAZOLE 150 MG ORAL TABLET take 1 tab po qday once FLUCONAZOLE 12649045584 No Longer Active Dangelo Rangel MD Acti ve CIPRO 500 MG ORAL TABLET 1 tablet by mouth twice daily CIPROFLOXACIN HCL 39880503027 No Longer Active Dangelo Rangel MD Active PYRIDIUM 200 MG ORAL TABLET take 1 tab po TID prn urinary pain. PYRIDIUM 200 MG ORAL TABLET 2717854 PHENAZOPYRIDINE HCL Inactive PERCOCET 5-325 MG ORAL TABLET 1 tablet by mouth every 6 hour s as needed PERCOCET 5-325 MG ORAL TABLET 2687280 OXYCODONE-ACETAMINOPHEN Inactive ZOFRAN ODT 4 MG ORAL TABLET DISINTEGRATING 1 po q6hr PRN Nausea ZOFRAN ODT 4 MG ORAL TABLET DISINTEGRATING 659144 ONDAN SETRON Inactive FOCALIN XR 15 MG [...] for pain PERCOCET 10-325 MG ORAL TABLET 8023424 OXYCODONE-ACETAMI NOPHEN Inactive FOCALIN XR 10 MG ORAL CAPSULE EXTENDED RELEASE 24 HOUR 1 po q a. m. FOCALIN XR 10 MG ORAL CAPSULE EXTENDED RELEASE 24 HOUR DEXMETHYLPHENIDATE HCL Inactive CEFDINIR 300 MG ORAL CAPSULE 1 po bid CEFDINI R 300 MG ORAL CAPSULE 152428 CEFDINIR Inactive ANTIPYRINE-BENZOCAINE 5.4-1.4 % OTIC SOLUTION 1-2 drops in affec yohannes ear ANTIPYRINE-BENZOCAINE 5.4-1.4 % OTIC SOLUTION BENZOCAINE-ANTIPYRINE Inactive FLONASE 50 MCG/ACT NASAL SUSPENSION 1 spray each nostril am and hs FLONASE 50 MCG/ACT NASAL SUSPENSION 6286771 FLUTICASONE PROPIONATE I nactive PHENERGAN CREAM* 25mg applied to wrist q6hr PRN Nausea PHENERGAN CREAM* Inactive FIORICET 325-50-40 MG TAB 1 tablet by mouth four times daily as needed FIORICET 325-50-40 MG TAB ACETAMINOPHEN-C AFF-BUTALBITAL Inactive TRAZODONE HCL 100 MG ORAL TABLET 0.5 to 1 po qHS PRN Insomnia 20 30/07/08 TRAZODONE HCL 100 MG ORAL TABLET 445700 TRAZODONE HCL Inactive CONCERTA 18 MG ORAL [...] cough HYDROCODONE-ACETAMINOPHEN 5-325 MG ORAL TABLET 8 41172 HYDROCODONE-ACETAMINOPHEN Inactive PHENAZOPYRIDINE HCL 200 MG ORAL TABLET take 1 tab po TID for bladder pain PHENAZOPYRIDINE HCL 200 MG ORAL TABLET 4261913 PHENAZOPYRIDINE HCL Inactive HYDROCODONE-ACETAMINOPHEN 5-325 MG ORAL TABLET 1 po q 6hr PRN Pa in HYDROCODONE-ACETAMINOPHEN 5-325 MG ORAL TABLET 934304 HYDROCODONE-ACETAMINOPHEN Inactive CELEXA 20 MG ORAL TABLET 1 tablet by mouth daily 09/26 CELEXA 20 MG ORAL TABLET 687174 CITALOPRAM HYDROBROMIDE Inactive REGLAN 10 MG ORAL TABLET 1 po TID PRN Nausea 3 REGLAN 10 MG ORAL TABLET 544165 METOCLOPRAMIDE HCL Inactive LAMISIL 250 MG ORAL TABLET 1 po qd L AMISIL 250 MG ORAL TABLET 535475 TERBINAFINE HCL Inactive DICLOFENAC SODIUM 75 MG ORAL TABLET DELAYED RELEASE 1 tablet by mouth twice daily PRN Knee pain DICLOFENAC SODIUM 75 MG ORAL TABLET DELAYED RELEASE 266174 DICLOFENAC SODIUM Inactive METOCLOPRAMIDE HCL 10 MG ORAL TABLET take one PO tid PRN nausea METOCLOPRAMIDE HCL 10 MG ORAL TABLET 501789 METOCLOPRAM ZACH HCL Inactive TERBINAFINE HCL 250 MG ORAL TABLET take one table PO one time da moises TERBINAFINE HCL 250 MG ORAL TABLET 780164 TERBINAFINE H CL Inactive BUPROPION HCL ER [...] SICKNESS 25 M G ORAL TABLET CHEWABLE 143185 MECLIZINE HCL Inactive SUMATRIPTAN SUCCINATE 100 MG ORAL TABLET Take one PRN for migran e SUMATRIPTAN SUCCINATE 100 MG ORAL TABLET 473952 SUMATRIPTAN SUCCINATE Inactive COMPRO 25 MG RECTAL SUPPOSITORY insert or apply one garza ppository rectally as directed every 12 hours as needed for nausea COMPRO 25 MG RECTAL SUPPOSITORY 749981 PROCHLORPERAZINE Inactive ONDANSETRON 8 MG ORAL TABLET DISINTEGRATING place one tablet on tongue and allow to dissolve every 6 hours as needed for vomitting ONDANSETRON 8 MG ORAL TABLET DISINTEGRATING 565704 ONDANSETRON Inactive HYDROCODONE-ACETAMINOPHEN 5-325 MG ORAL TABLET 0.5 to 1 tab by mouth every 6 hours as needed HYDROCODONE-ACETAMIN OPHEN 5-325 MG ORAL TABLET 200352 HYDROCODONE-ACETAMINOPHEN Inactive BACTRIM DS 800-160 MG ORAL TABLET 1 tab by mouth twice daily 201 11/23/03 BACTRIM DS 800-160 MG ORAL TABLET 19820918 TRIMETHOPRIM-SULFAMETHOXAZOLE Inactive DIFLUCAN 150 MG ORAL TABLET 1 tablet by mouth if neede d, hold until symptoms start DIFLUCAN 150 MG ORAL TABLET 175414 FLUCONAZ OLE Inactive IBUPROFEN 800 MG ORAL TABLET 1 tab every 8 hours with food 03/20 IBUPROFEN 800 MG ORAL TABLET 172427 IBUPROFEN [place] ctive HYDROCODONE-ACETAMINOPHEN 5-325 MG ORAL TABLET 1 tab b y mouth every 6 hours as needed HYDROCODONE-ACETAMINOPHEN 5-325 MG ORAL TABLET 465263 HYDROCODONE-ACETAMINOPHEN Inactive BACTROBAN 2 % EXTERNAL CREAM Apply to affected area BID for up to 10 days BACTROBAN 2 % EXTERNAL CREAM 622504 MUPIROCIN CA LCIUM Inactive MAGNESIUM CITRATE 1.745 GM/30ML ORAL SOLUTION 150ml po BID P RN Constipation MAGNESIUM CITRATE 1.745 GM/30ML ORAL SOLUTION 10 03946 MAGNESIUM CITRATE Inactive DIFLUCAN 150 MG ORAL TABLET 1 tablet by mouth qod 2015 DIFLUCAN 150 MG ORAL TABLET 852092 FLUCONAZOLE Inactive BACTRIM DS 800-160 MG ORAL TABLET 1 tab by mouth twice daily 201 12/19/26 BACTRIM DS 800-160 MG ORAL TABLET 814043 TRIMETHOPRIM-SULFAMETHOXAZOLE Inactive CLARITIN 10 MG ORAL TABLET 1 tablet by mouth daily as needed for allergies CLARITIN 10 MG ORAL TABLET 774478 LORATADINE I nactive FLUTICASONE PROPIONATE 50 MCG/ACT NASAL SUSPENSION 2 s prays/nostril qd PRN Congestion/Allergies FLUTICASONE PROPION ATE 50 MCG/ACT NASAL SUSPENSION 2860248 FLUTICASONE PROPIONATE Inactive MIRALAX ORAL POWDER 8.5 to 17g po qd PRN Constipation MIRALAX ORAL POWDER 380373 POLYETHYLENE GLYCOL 3350 Inactive CIPRO 500 MG ORAL TABLET 1 tablet by mouth twice daily CIPRO 500 MG ORAL TABLET 765190 CIPROFLOXACIN HCL Inactive FLUCONAZOLE 150 MG ORAL TABLET take 1 tab po qday once FLUCONAZOLE 150 MG ORAL TABLET 474156 FLUCONAZOLE Inactive ZITHROMAX Z-KARTHIK 250 MG ORAL TABLET 2 today, then 1 daily for 4 d ays ZITHROMAX Z-KARTHIK 250 MG ORAL TABLET 247632 AZITHROMYCIN Inactive PREDNISONE 20 MG ORAL TABLET 2 tabs daily for 3 days, 1 tab daily for 3 days, 1/2 tab daily for 2 days PREDNISONE 20 MG ORAL T ABLET 078020 PREDNISONE Inactive AZITHROMYCIN 250 MG ORAL TABLET 2 po qd x 1 day, then 1 po q d x 4 days AZITHROMYCIN 250 MG ORAL TABLET 232730 AZITHROMY SPARKLE Inactive PREDNISONE 20 MG ORAL TABLET 2 tabs daily for 3 days, 1 tab daily for 3 days, 1/2 tab daily for 2 days PREDNISONE 20 MG ORAL TABLET 899592 PREDNISONE Inactive CEFDINIR 300 MG ORAL CAPSULE by mouth twice a day 2013 CEFDINIR 300 MG ORAL CAPSULE 833588 CEFDINIR Inactive TRIAMCINOLONE ACETONIDE 0.1 % EXTERNAL OINTMENT Apply to affected areas TID for up to 2 weeks TRIAMCINOLONE ACETON ZACH 0.1 % EXTERNAL OINTMENT 7950927 TRIAMCINOLONE ACETONIDE Inactive PREDNISONE 20 MG ORAL TABLET 2 tabs daily for 3 days, 1 tab daily for 3 days, 1/2 tab daily for 2 days PREDNISONE 20 MG ORAL T ABLET 667597 PREDNISONE Inactive BACTRIM DS 800-160 MG ORAL TABLET 1 po BID x 7 days 29/04/10 BACTRIM DS 800-160 MG ORAL TABLET 398689 SULFAMETHOXAZOLE-TRIMETHOP RIM Inactive CIPRO 500 MG ORAL TABLET 1 tablet by mouth twice daily CIPRO 500 MG ORAL TABLET 870377 CIPROFLOXACIN HCL Inactive AZITHROMYCIN 250 MG ORAL TABLET 2 po qd x 1 day, then 1 po q d x 4 days AZITHROMYCIN 250 MG ORAL TABLET 688042 AZITHROMY SPARKLE Inactive FLAGYL 500 MG ORAL TABLET 1 tablet by mouth bid 04/13 FLAGYL 500 MG ORAL TABLET 248050 METRONIDAZOLE Inactive AZITHROMYCIN 250 MG ORAL TABLET 2 po qd x 1 day, then 1 po q d x 4 days AZITHROMYCIN 250 MG ORAL TABLET 842826 AZITHROMY SPARKLE Inactive AMOXICILLIN 500 MG ORAL CAPSULE 2 po BID x 10 days 201 01/15/27 AMOXICILLIN 500 MG ORAL CAPSULE 427691 AMOXICILLIN Inactive AMOXICILLIN 500 MG ORAL CAPSULE 2 po BID x 14 days for H. Pylori AMOXICILLIN 500 MG ORAL CAPSULE 186586 AMOXICILLIN Inactive CLARITHROMYCIN 500 MG ORAL TABLET 1 tab po BID x 14 days CLARITHROMYCIN 500 MG ORAL TABLET 395814 CLARITHROMYCIN Inacti ve FLAGYL 500 MG ORAL TABLET 1 tablet by mouth bid 08/29 FLAGYL 500 MG ORAL TABLET 842444 METRONIDAZOLE Inactive PROTONIX 40 MG ORAL TABLET DELAYED RELEASE 1 pill by m outh daily, for acid reflux PROTONIX 40 MG ORAL TABLET DELAYED RELEAS E 974663 PANTOPRAZOLE SODIUM Inactive Immunizations Vaccine Administration Date [...] ... - Chemistry sodium, serum 139 mmol/L 292-462 0490/11/28 carbon dioxide, venous blood 26.0 mmol/L 21.0-32 [...] 5.0-8.5 Encounters Code Encounter Date Provider Facility CPT-02637 [id number] Vst-Est Level III 09:37:41 CDT Dangelo Rangel MD [facility] CPT-59399 Level 4 Est. Patient 08:57:51 [employer] Checo Conklin MD [facility] CPT-34631 Level 3 Est. Patient 11:24:55 [employer] Efren almendarez [facility] CPT-83405 Level 3 Est. Patient 13:05:44 CDT Paul Hamlin MD [facility] CPT-41415 Level 3 Est. Patient 11:29:55 CDT Checo Conklin MD [facility] CPT-94754 Level 4 Est. Patient 11:08:12 [employer] Checo Conklin MD [facility] CPT-15836 Level 4 Est. Patient 16:06:48 [employer] Checo Conklin MD [facility] CPT-04803 Level 3 Est. Patient 09:11:49 CDT Efren almendarez [facility] CPT-18022 Level 2 Est. Patient 19:53:27 CDT Tanner hill MD [facility] CPT-04860 Level 3 Est. Patient 09:15:34 CDT Efren almendarez [facility] CPT-01790 Level 3 Est. Patient 11:28:51 [employer] Efren almendarez [facility] CPT-77478 Level 4 Est. Patient 13:55:46 [employer] S[employer]ER Checo Conklin MD [facility] CPT-61014 Level 4 Est. Patient 17:10:53 CDT Checo Conklin MD [facility] CPT-13799 Level 3 Est. Patient 15:56:22 CDT Checo Conklin MD [facility] CPT-26737 Level 3 Est. Patient 15:29:07 CDT Checo Conklin MD [facility] CPT-56007 Level 3 Est. Patient 14:38:41 CDT Checo Conklin MD [facility] CPT-75420 Level 3 Est. Patient 15:22:03 [employer] Thomas reynolds DO [facility] CPT-72164 Level 3 Est. Patient 13:34:17 [employer] Checo Conklin MD [facility] CPT-51830 Level 3 Est. Patient 12:29:32 CDT Dangelo arroyo MD [facility] CPT-65002 Level 3 Est. Patient 16:53:02 CDT Checo Conklin MD [facility] CPT-59279 Level 3 Est. Patient 16:37:13 CDT Checo Conklin MD [facility] CPT-73311 Level 3 Est. Patient 16:16:59 CDT Paul Hamlin MD [facility] CPT-15384 Level 3 Est. Patient 14:20:13 CDT Dangelo arroyo MD [facility] CPT-06006 Level 4 Est. Patient 11:29:33 CDT Checo Conklin MD [facility] CPT-08406 Level 3 Est. Patient 17:08:31 CDT Checo Conklin MD [facility] CPT-50536 Level 3 Est. Patient 16:50:42 [employer] S[employer]ER Checo Conklin MD [facility] CPT-77306 Level 4 Est. Patient 09:26:08 [employer] S[employer]ER Checo Conklin MD [facility] CPT-00434 Level 3 Est. Patient 11:37:10 CDT Checo Conklin MD [facility] CPT-07757 Level 4 Est. Patient 14:07:38 CDT Checo Conklin MD [facility] CPT-95658 Level 3 Est. Patient 09:54:41 CDT Checo Conklin MD [facility] CPT-88444 Level 3 Est. Patient 11:10:54 CDT Paul Hamlin MD [facility] CPT-72790 Level 3 Est. Patient 14:16:56 [employer] S[employer]ER Checo Conklin MD [facility] CPT-82957 Level 3 Est. Patient 11:04:11 [employer] S[employer] Checo Conklin MD [facility] CPT-81381 Level 3 Est. Patient 17:09:26 CDT Dangelo arroyo MD [facility] CPT-52936 Level 3 Est. Patient 16:54:37 CDT Checo Conklin MD [facility] Procedures Code Procedure Name Date Entry Date Standard Desc ription CPT-07674 Wrist, right, comp 3V - XRAY USE ONLY 09:24:31 CDT CPT-62033 Abd compl w upright - XRAY USE ONLY 1 1:36:54 [employer] CPT-33215 UA w micro - LAB USE ONLY 17:06:46 CDT 2015 CPT-48416 BHCG Qual - LAB USE ONLY 17:06:46 CDT 05/06 CPT-16772 CMP - LAB USE ONLY 17:06:46 CDT CPT-89894 CBC with Diff - LAB USE ONLY 17:06:45 CDT 2 CPT-83176 Venipuncture Draw Fee 17:06:45 CDT CPT-LR Lesion Removal 19:53:27 CDT CPT-OV Office Visit 11:31:28 CDT CPT-93582 Tubersol 09:39:29 CDT CPT-J2550 Phenergan 25 mg (Promethazine) 13:59:02 [employer] CPT-J1885 Toradol 60 mg (Ketorolac) 13:59:02 [employer] SINGER 2012
--- OUTSIDE RECORDS SUMMARY | 2019-09-29 01:54 | XMS REPORT | Clinical Summary ---
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 Abdominal pain, generalized Nausea 787.02 Active Efren Medel APRN Nausea alone FH BREAST CANCER ICD-V16.3 Inactive Checo Joshua FH DIABETES ICD-V18.0 Inactive Checo Coknlin MD 201 08/27/26 CONCUSSION ICD-850.9 Inactive Checo [...] outh daily, for acid reflux PANTOPRAZOLE SODIUM 76864852513 Active Fan Méndez LPN Active FLAGYL 500 MG ORAL TABLET 1 tablet by mouth bid 08/29 METRONIDAZOLE 12845910990 Active Corry Méndez LPN Acti ve CLARITHROMYCIN 500 MG ORAL TABLET 1 tab po BID x 14 days CLARITHROMYCIN 49474825108 Active Corry Méndez LPN Act mike AMOXICILLIN 500 MG ORAL CAPSULE 2 po BID x 14 days for H. Pylori AMOXICILLIN 99394665378 Active Corry Méndez LPN Active PAROXETINE HCL 20 MG ORAL TABLET 1.5 po qd PAR OXETINE HCL 78368087737 Active Checo Conklin MD Active FLUTICASONE PROPIONATE 50 MCG/ACT NASAL SUSPENSION 2 s prays/nostril qd PRN Congestion/Allergies FLUTICASONE PROPIONATE 0147503826 9 No Longer Active Checo Conklin MD Active AMOXICILLIN 500 MG ORAL CAPSULE 2 po BID x 10 days 201 01/15/27 AMOXICILLIN 54016532164 No Longer Active Checo Conklin MD Activ e MIRALAX ORAL POWDER 8.5 to 17g po qd PRN Constipation POLYETHYLENE GLYCOL 3350 60139279834 Active Checo Conklin MD Active CLARITIN 10 MG ORAL TABLET 1 tablet by mouth daily as needed for allergies LORATADINE 27795342630 No Longer Active Checo Ortiz MD Active BACTRIM DS 800-160 MG ORAL TABLET 1 tab by mouth twice daily 201 12/19/26 TRIMETHOPRIM-SULFAMETHOXAZOLE 62126564751 No Longer Active Ragini Carrillo MD Active DIFLUCAN 150 MG ORAL TABLET 1 tablet by mouth qod 2015 FLUCONAZOLE 92987780260 No Longer Active Efren Medel INSECTICIDE SPRAYER Act mike AZITHROMYCIN 250 MG ORAL TABLET 2 po qd x 1 day, then 1 po q d x 4 days AZITHROMYCIN 84730957553 No Longer Active Efren flores INSECTICIDE SPRAYER Active FLAGYL 500 MG ORAL TABLET 1 tablet by mouth bid 04/13 METRONIDAZOLE 46879056396 No Longer Active Checo Conklin MD Acti ve FOCALIN XR 10 MG ORAL CAPSULE EXTENDED RELEASE 24 HOUR 1 po q a.m. DEXMETHYLPHENIDATE HCL 31685097388 Active Checo Conklin MD Active MAGNESIUM CITRATE 1.745 GM/30ML ORAL SOLUTION 150ml po BID P RN Constipation MAGNESIUM CITRATE 80075445276 No Longer Active Checo Conklin MD Active BACTROBAN 2 % EXTERNAL CREAM Apply to affected area BID for up to 10 days MUPIROCIN CALCIUM 27773375417 No Longer Active Checo Conklin MD Active HYDROCODONE-ACETAMINOPHEN 5-325 MG ORAL TABLET 1 tab b y mouth every 6 hours as needed HYDROCODONE-ACETAMINOPHEN 29497575506 No Longer Active Checo Conklin MD Active IBUPROFEN 800 MG ORAL TABLET 1 tab every 8 hours with food 03/20 IBUPROFEN 22904166392 No Longer Active Checo Conklin MD Active DIFLUCAN 150 MG ORAL TABLET 1 tablet by mouth if neede d, hold until symptoms start FLUCONAZOLE 92948645710 No Longer Active Checo Conklin MD Active BACTRIM DS 800-160 MG ORAL TABLET 1 tab by mouth twice daily 201 11/23/03 TRIMETHOPRIM-SULFAMETHOXAZOLE 43683135166 No Longer Active K bernice Méndez LPN Active HYDROCODONE-ACETAMINOPHEN 5-325 MG ORAL TABLET 0.5 to 1 tab by mouth every 6 hours as needed HYDROCODONE-ACETAMINOPHEN 78894396246 No Longer Active Checo Conklin MD Active ONDANSETRON 8 MG ORAL TABLET DISINTEGRATING place one tablet on tongue and allow to dissolve every 6 hours as needed for vomitting ONDANSETRON 83615027961 No Longer Active Checo Conklin MD Activ e COMPRO 25 MG RECTAL SUPPOSITORY insert or apply one garza ppository rectally as directed every 12 hours as needed for nausea PROCHLORPERAZINE 15914355992 No Longer Active Checo Conklin MD A ctive SUMATRIPTAN SUCCINATE 100 MG ORAL TABLET Take one PRN for migran e SUMATRIPTAN SUCCINATE 17833049766 No Longer Active Checo Conklin MD Active TRAVEL SICKNESS 25 MG ORAL TABLET CHEWABLE chew and sw allow one tablet every 6 hours as needed MECLIZINE HCL 26608561341 No Longer A ctive Checo Conklin MD Active BUPROPION HCL ER (SR) 100 MG ORAL TABLET EXTENDED RELE ASE 12 HOUR take one tablet by mouth one time daily for one week then take 1 two times daily BUPROPION HCL 15725678813 No Longer Active Checo gallagher MD Active TERBINAFINE HCL 250 MG ORAL TABLET take one table PO one time da moises TERBINAFINE HCL 30689645351 No Longer Active Checo Conklin MD Active METOCLOPRAMIDE HCL 10 MG ORAL TABLET take one PO tid PRN nausea METOCLOPRAMIDE HCL 10566577496 No Longer Active Checo Conklin MD Active DICLOFENAC SODIUM 75 MG ORAL TABLET DELAYED RELEASE 1 tablet by mouth twice daily PRN Knee pain DICLOFENAC SODIUM 40006958692 No Longer Active Checo Conklin MD Active LAMISIL 250 MG ORAL TABLET 1 po qd TERBINAFI NE HCL 32941076744 No Longer Active Checo Conklin MD Active REGLAN 10 MG ORAL TABLET 1 po TID PRN Nausea 3 METOCLOPRAMIDE HCL 38985259761 No Longer Active Checo Conklin MD Active CELEXA 20 MG ORAL TABLET 1 tablet by mouth daily 09/26 CITALOPRAM HYDROBROMIDE 36309326020 No Longer Active Checo Conklin MD Active AZITHROMYCIN 250 MG ORAL TABLET 2 po qd x 1 day, then 1 po q d x 4 days AZITHROMYCIN 05849753312 No Longer Active Checo Ortiz MD Active HYDROCODONE-ACETAMINOPHEN 5-325 MG ORAL TABLET 1 po q 6hr PRN Pa in HYDROCODONE-ACETAMINOPHEN 46602480211 No Longer Active Lenora Conklin MD Active PHENAZOPYRIDINE HCL 200 MG ORAL TABLET take 1 tab po TID for bladder pain PHENAZOPYRIDINE HCL 68894412472 No Longer Active Joe Conklin MD Active CIPRO 500 MG ORAL TABLET 1 tablet by mouth twice daily CIPROFLOXACIN HCL 68964804101 No Longer Active Dangelo Rangel MD Active HYDROCODONE-ACETAMINOPHEN 5-325 MG ORAL TABLET 1/2 to 1 po q 4 hours prn cough HYDROCODONE-ACETAMINOPHEN 22274669679 No Longer Activ candy Rangel MD Active BACTRIM DS 800-160 MG ORAL TABLET 1 po BID x 7 days 29/04/10 SULFAMETHOXAZOLE-TRIMETHOPRIM 64369179109 No Longer Active Checo Conklin MD Active PREDNISONE 20 MG ORAL TABLET 2 tabs daily for 3 days, 1 tab daily for 3 days, 1/2 tab daily for 2 days PREDNISONE 26973330810 No Longer Active Checo Conklin MD Active TRIAMCINOLONE ACETONIDE 0.1 % EXTERNAL OINTMENT Apply to affected areas TID for up to 2 weeks TRIAMCINOLONE ACETONIDE 14507658651 No Longer Active Checo Conklin MD Active CEFDINIR 300 MG ORAL CAPSULE by mouth twice a day 2013 CEFDINIR 23864896232 No Longer Active Dangelo Rangel MD Acti ve BUPROPION HCL ER (SMOKING DET) 150 MG ORAL TABLET EXTE NDED RELEASE 12 HOUR 1 a day for 1 week then 1 twice a day BUPROPION HCL (SMOKING DETER) 16082579543 No Longer Active Checo Conklin MD Active SIMVASTATIN 20 MG ORAL TABLET 1 po qd SIMVASTAT IN 97921095812 Active Checo Conklin MD Active CHANTIX STARTING MONTH KARTHIK 0.5 MG X 11 & 1 MG X 42 ORA L TABLET 0.5mg daily for 3 days, then 0.5mg BID for 4 days, then 1mg BID VARENICLINE TARTRATE 06815900526 No Longer Active Checo Conklin MD Activ e XANAX 0.5 MG ORAL TABLET 1 po BID PRN anxiety A LPRAZOLAM 81489573036 Active Checo Conklin MD Active CONCERTA 18 MG ORAL TABLET EXTENDED RELEASE 1 po q a.m. METHYLPHENIDATE HCL 65165492926 No Longer Active Checo Conklin MD Active AMBIEN 5 MG ORAL TABLET 1 po qHS PRN Insomnia Z OLPIDEM TARTRATE 57067316058 Active Checo Conklin MD Active TRAZODONE HCL 100 MG ORAL TABLET 0.5 to 1 po qHS PRN Insomnia 20 30/07/08 TRAZODONE HCL 99405648013 No Longer Active Checo Conklin MD Active FIORICET 325-50-40 MG TAB 1 tablet by mouth four times daily as needed [id number] 77634142402 No Longer Active Checo Conklin MD Active PHENERGAN CREAM* 25mg applied to wrist q6hr PRN Nausea PHENERGAN CREAM* No Longer Active Checo Conklin MD A ctive FLONASE 50 MCG/ACT NASAL SUSPENSION 1 spray each nostril am and hs FLUTICASONE PROPIONATE 81130094513 No Longer Active Checo Conklin MD Active ANTIPYRINE-BENZOCAINE 5.4-1.4 % OTIC SOLUTION 1-2 drops in affec yohannes ear BENZOCAINE-ANTIPYRINE 49670034870 No Longer Active Checo Conklin MD Active CEFDINIR 300 MG ORAL CAPSULE 1 po bid CEFDINIR 12801806339 No Longer Active Checo Conklin MD Active PREDNISONE 20 MG ORAL TABLET 2 tabs daily for 3 days, 1 tab daily for 3 days, 1/2 tab daily for 2 days PREDNISONE 10650810747 No Longer Active Checo Conklin MD Active AZITHROMYCIN 250 MG ORAL TABLET 2 po qd x 1 day, then 1 po q d x 4 days AZITHROMYCIN 94567524571 No Longer Active Checo Ortiz MD Active PREDNISONE 20 MG ORAL TABLET 2 tabs daily for 3 days, 1 tab daily for 3 days, 1/2 tab daily for 2 days PREDNISONE 04869921712 No Longer Active Checo Conklin MD Active ZITHROMAX Z-KARTHIK 250 MG ORAL TABLET 2 today, then 1 daily for 4 d ays AZITHROMYCIN 88556736782 No Longer Active Paul Hamlin MD Active FOCALIN XR 10 MG ORAL CAPSULE EXTENDED RELEASE 24 HOUR 1 po q a. m. DEXMETHYLPHENIDATE HCL 83217963196 No Longer Active Paul Hamlin MD Active PERCOCET 10-325 MG ORAL TABLET 1 tablet every 6 hours as needed for pain OXYCODONE-ACETAMINOPHEN 78950440034 No Longer Active Paul Hamlin MD Active LORTAB 5-500 MG ORAL TABLET 1/2 to 1 tablet by mouth e very 4 hours as needed for pain HYDROCODONE-ACETAMINOPHEN 44039018718 No Longer Active Checo Conklin MD Active FOCALIN XR 15 MG ORAL CAPSULE EXTENDED RELEASE 24 HOUR 1 po q a. m. DEXMETHYLPHENIDATE HCL 01033098782 No Longer Active Checo Conklin MD Active ZOFRAN ODT 4 MG ORAL TABLET DISINTEGRATING 1 po q6hr PRN Nausea ONDANSETRON 84253799122 No Longer Active Checo Conklin MD Active PERCOCET 5-325 MG ORAL TABLET 1 tablet by mouth every 6 hour s as needed OXYCODONE-ACETAMINOPHEN 38359115945 No Longer Active Checo Conklin MD Active PYRIDIUM 200 MG ORAL TABLET take 1 tab po TID prn urinary pain. PHENAZOPYRIDINE HCL 14620292708 No Longer Active Checo Joshua Active FLUCONAZOLE 150 MG ORAL TABLET take 1 tab po qday once FLUCONAZOLE 23000076083 No Longer Active Dangelo Rangel MD Acti ve CIPRO 500 MG ORAL TABLET 1 tablet by mouth twice daily CIPROFLOXACIN HCL 17944791366 No Longer Active Dangelo Rangel MD Active PHENERGAN CREAM* 25mg applied to wrist q6hr PRN Nausea PHENERGAN CREAM* Inactive AMOXICILLIN 500 MG ORAL CAPSULE 2 po BID x 10 days 201 01/15/27 AMOXICILLIN 500 MG ORAL CAPSULE 182497 AMOXICILLIN Inactive ANTIPYRINE-BENZOCAINE 5.4-1.4 % OTIC SOLUTION 1-2 drops in affec yohannes ear ANTIPYRINE-BENZOCAINE 5.4-1.4 % OTIC SOLUTION 209310 BENZOCAINE-ANTIPYRINE Inactive BACTRIM DS 800-160 MG ORAL TABLET 1 tab by mouth twice daily 201 11/23/03 BACTRIM DS 800-160 MG ORAL TABLET 309147 TRIMETHOPRIM-SULFAMETHOXAZOLE Inactive BACTRIM DS 800-160 MG ORAL TABLET 1 po BID x 7 days 29/04/10 BACTRIM DS 800-160 MG ORAL TABLET 19820918 SULFAMETHOXAZOLE-TRIMETHOP RIM Inactive BACTRIM DS 800-160 MG ORAL TABLET 1 tab by mouth twice daily 201 12/19/26 BACTRIM DS 800-160 MG ORAL TABLET 275934 TRIMETHOPRIM-SULFAMETHOXAZOLE Inactive CIPRO 500 MG ORAL TABLET 1 tablet by mouth twice daily CIPRO 500 MG ORAL TABLET 097819 CIPROFLOXACIN HCL Inactive CIPRO 500 MG ORAL TABLET 1 tablet by mouth twice daily CIPRO 500 MG ORAL TABLET 953113 CIPROFLOXACIN HCL Inactive CLARITIN 10 MG ORAL TABLET 1 tablet by mouth daily as needed for allergies CLARITIN 10 MG ORAL TABLET 915920 LORATADINE I nactive FIORICET 325-50-40 MG TAB 1 tablet by mouth four times daily as needed FIORICET 325-50-40 MG TAB ACETAMINOPHEN-C AFF-BUTALBITAL Inactive FLAGYL 500 MG ORAL TABLET 1 tablet by mouth bid 04/13 FLAGYL 500 MG ORAL TABLET 211288 METRONIDAZOLE Inactive IBUPROFEN 800 MG ORAL TABLET 1 tab every 8 hours with food 03/20 IBUPROFEN 800 MG ORAL TABLET 626603 IBUPROFEN [place] ctive MAGNESIUM CITRATE 1.745 GM/30ML ORAL SOLUTION 150ml po BID P RN Constipation MAGNESIUM CITRATE 1.745 GM/30ML ORAL SOLUTION 10 82830 MAGNESIUM CITRATE Inactive METOCLOPRAMIDE HCL 10 MG ORAL TABLET take one PO tid PRN nausea METOCLOPRAMIDE HCL 10 MG ORAL TABLET 375383 METOCLOPRAM ZACH HCL Inactive PERCOCET 5-325 MG ORAL TABLET 1 tablet by mouth every 6 hour s as needed PERCOCET 5-325 MG ORAL TABLET 0888303 OXYCODONE-ACETAMINOPHEN Inactive PHENAZOPYRIDINE HCL 200 MG ORAL TABLET take 1 tab po TID for bladder pain PHENAZOPYRIDINE HCL 200 MG ORAL TABLET 9394397 PHENAZOPYRIDINE HCL Inactive PREDNISONE 20 MG ORAL TABLET 2 tabs daily for 3 days, 1 tab daily for 3 days, 1/2 tab daily for 2 days PREDNISONE 20 MG ORAL T ABLET 286743 PREDNISONE Inactive PREDNISONE 20 MG ORAL TABLET 2 tabs daily for 3 days, 1 tab daily for 3 days, 1/2 tab daily for 2 days PREDNISONE 20 MG ORAL TABLET 443847 PREDNISONE Inactive PREDNISONE 20 MG ORAL TABLET 2 tabs daily for 3 days, 1 tab daily for 3 days, 1/2 tab daily for 2 days PREDNISONE 20 MG ORAL T ABLET 265739 PREDNISONE Inactive PYRIDIUM 200 MG ORAL TABLET take 1 tab po TID prn urinary pain. PYRIDIUM 200 MG ORAL TABLET 9397077 PHENAZOPYRIDINE HCL Inactive REGLAN 10 MG ORAL TABLET 1 po TID PRN Nausea 3 REGLAN 10 MG ORAL TABLET 748488 METOCLOPRAMIDE HCL Inactive TRAZODONE HCL 100 MG ORAL TABLET 0.5 to 1 po qHS PRN Insomnia 20 30/07/08 TRAZODONE HCL 100 MG ORAL TABLET 971896 TRAZODONE HCL Inactive TRIAMCINOLONE ACETONIDE 0.1 % EXTERNAL OINTMENT Apply to affected areas TID for up to 2 weeks TRIAMCINOLONE ACETON ZACH 0.1 % EXTERNAL OINTMENT 2626651 TRIAMCINOLONE ACETONIDE Inactive LORTAB 5-500 MG ORAL TABLET 1/2 to 1 tablet by mouth e very 4 hours as needed for pain LORTAB 5-500 MG ORAL TABLET 849205 HYDROCODONE-ACETAMINOPHEN Inactive TERBINAFINE HCL 250 MG ORAL TABLET take one table PO one time da moises TERBINAFINE HCL 250 MG ORAL TABLET 732961 TERBINAFINE H CL Inactive SUMATRIPTAN SUCCINATE 100 MG ORAL TABLET Take one PRN for migran e SUMATRIPTAN SUCCINATE 100 MG ORAL TABLET 371281 SUMATRIPTAN SUCCINATE Inactive DIFLUCAN 150 MG ORAL TABLET 1 tablet by mouth if neede d, hold until symptoms start DIFLUCAN 150 MG ORAL TABLET 631404 FLUCONAZ OLE Inactive DIFLUCAN 150 MG ORAL TABLET 1 tablet by mouth qod 2015 DIFLUCAN 150 MG ORAL TABLET 781302 FLUCONAZOLE Inactive FLUCONAZOLE 150 MG ORAL TABLET take 1 tab po qday once FLUCONAZOLE 150 MG ORAL TABLET 693424 FLUCONAZOLE Inactive DICLOFENAC SODIUM 75 MG ORAL TABLET DELAYED RELEASE 1 tablet by mouth twice daily PRN Knee pain DICLOFENAC SODIUM 75 MG ORAL TABLET DELAYED RELEASE 807196 DICLOFENAC SODIUM Inactive LAMISIL 250 MG ORAL TABLET 1 po qd L AMISIL 250 MG ORAL TABLET 379486 TERBINAFINE HCL Inactive AZITHROMYCIN 250 MG ORAL TABLET 2 po qd x 1 day, then 1 po q d x 4 days AZITHROMYCIN 250 MG ORAL TABLET 171938 AZITHROMY SPARKLE Inactive AZITHROMYCIN 250 MG ORAL TABLET 2 po qd x 1 day, then 1 po q d x 4 days AZITHROMYCIN 250 MG ORAL TABLET 687340 AZITHROMY SPARKLE Inactive AZITHROMYCIN 250 MG ORAL TABLET 2 po qd x 1 day, then 1 po q d x 4 days AZITHROMYCIN 250 MG ORAL TABLET 945890 AZITHROMY SPARKLE Inactive BACTROBAN 2 % EXTERNAL CREAM Apply to affected area BID for up to 10 days BACTROBAN 2 % EXTERNAL CREAM 202342 MUPIROCIN CA LCIUM Inactive CEFDINIR 300 MG ORAL CAPSULE by mouth twice a day 2013 CEFDINIR 300 MG ORAL CAPSULE 20021020 CEFDINIR Inactive CEFDINIR 300 MG ORAL CAPSULE 1 po bid CEFDINI R 300 MG ORAL CAPSULE 20021020 CEFDINIR Inactive CELEXA 20 MG ORAL TABLET 1 tablet by mouth daily 09/26 CELEXA 20 MG ORAL TABLET 693999 CITALOPRAM HYDROBROMIDE Inactive ZOFRAN ODT 4 MG ORAL TABLET DISINTEGRATING 1 po q6hr PRN Nausea ZOFRAN ODT 4 MG ORAL TABLET DISINTEGRATING 805193 ONDAN SETRON Inactive ONDANSETRON 8 MG ORAL TABLET DISINTEGRATING place one tablet on tongue and allow to dissolve every 6 hours as needed for vomitting ONDANSETRON 8 MG ORAL TABLET DISINTEGRATING 042821 ONDANSETRON Inactive CONCERTA 18 MG ORAL TABLET EXTENDED RELEASE 1 po q a.m. CONCERTA 18 MG ORAL TABLET EXTENDED RELEASE METHYLPHENIDATE HCL Inactive COMPRO 25 MG RECTAL SUPPOSITORY insert or apply one garza ppository rectally as directed every 12 hours as needed for nausea COMPRO 25 MG RECTAL SUPPOSITORY 676776 PROCHLORPERAZINE Inactive ZITHROMAX Z-KARTHIK 250 MG ORAL TABLET 2 today, then 1 daily for 4 d ays ZITHROMAX Z-KARTHIK 250 MG ORAL TABLET 555597 AZITHROMYCIN Inactive FLONASE 50 MCG/ACT NASAL SUSPENSION 1 spray each nostril am and hs FLONASE 50 MCG/ACT NASAL SUSPENSION 4642247 FLUTICASONE PROPIONATE I nactive PERCOCET 10-325 MG ORAL TABLET 1 tablet every 6 hours as needed for pain PERCOCET 10-325 MG ORAL TABLET 6262018 OXYCODONE-ACETAMI NOPHEN Inactive HYDROCODONE-ACETAMINOPHEN 5-325 MG ORAL TABLET 1 po q 6hr PRN Pa in HYDROCODONE-ACETAMINOPHEN 5-325 MG ORAL TABLET 852558 HYDROCODONE-ACETAMINOPHEN Inactive HYDROCODONE-ACETAMINOPHEN 5-325 MG ORAL TABLET 0.5 to 1 tab by mouth every 6 hours as needed HYDROCODONE-ACETAMIN OPHEN 5-325 MG ORAL TABLET 650770 HYDROCODONE-ACETAMINOPHEN Inactive HYDROCODONE-ACETAMINOPHEN 5-325 MG ORAL TABLET 1 tab b y mouth every 6 hours as needed HYDROCODONE-ACETAMINOPHEN 5-325 MG ORAL TABLET 379571 HYDROCODONE-ACETAMINOPHEN Inactive HYDROCODONE-ACETAMINOPHEN 5-325 MG ORAL TABLET 1/2 to 1 po q 4 hours prn cough HYDROCODONE-ACETAMINOPHEN 5-325 MG ORAL TABLET 8 06585 HYDROCODONE-ACETAMINOPHEN Inactive BUPROPION HCL ER (SR) 100 [...] FLUTICASONE PROPION ATE 50 MCG/ACT NASAL SUSPENSION 7674711 FLUTICASONE PROPIONATE Inactive FOCALIN XR 15 MG ORAL CAPSULE EXTENDED RELEASE 24 HOUR 1 po q a. m. FOCALIN XR 15 MG ORAL CAPSULE EXTENDED RELEASE 24 HOUR DEXMETHYLPHENIDATE HCL Inactive TRAVEL SICKNESS 25 MG ORAL TABLET CHEWABLE chew and sw allow one tablet every 6 hours as needed TRAVEL SICKNESS 25 M G ORAL TABLET CHEWABLE 946493 MECLIZINE HCL Inactive CHANTIX STARTING MONTH KARTHIK [...] PANEL - Chemistry cholesterol, serum 192 mg/dL 557-595 3698/02/20 HDL cholesterol, serum 31 mg/dL > OR [...] 11 .0-15.0 platelet count 218 THOUSAND/UL 10*3/mm3 849-045 5516/02/20 mean platelet volume 9.7 fL 7.5-12.5 Lab Report: Comp. Metabolic Panel, Eryth rocyte Sed Rate, UADIP W/MICRO, ... - Chemistry protein, total urine random Negative mg/dL Negative sodium, serum 139 mmol/L 396-061 1444/11/28 carbon dioxide, venous blood 26.0 mmol/L 21.0-32 [...] Negative Encounters Code Encounter Date Provider Facility CPT-64336 Level 3 Est. Patient 11:24:55 MINING DETAIL DRAFTSPERSON Efren almendarez [facility] CPT-49907 Level 3 Est. Patient 13:05:44 CDT Paul Hamlin MD [facility] CPT-89760 Level 3 Est. Patient 11:29:55 CDT Checo Coknlin MD [facility] CPT-29078 Level 4 Est. Patient 11:08:12 MINING DETAIL DRAFTSPERSON Checo Conklin MD [facility] CPT-15338 Level 4 Est. Patient 16:06:48 MINING DETAIL DRAFTSPERSON Checo Conklin MD [facility] CPT-01932 Level 3 Est. Patient 09:11:49 CDT Efren almendarez [facility] CPT-63769 Level 2 Est. Patient 19:53:27 CDT Tanner hill MD [facility] CPT-83172 Level 3 Est. Patient 09:15:34 CDT Efren almendarez [facility] CPT-29331 Level 3 Est. Patient 11:28:51 MINING DETAIL DRAFTSPERSON Efren almendarez [facility] CPT-27080 Level 4 Est. Patient 13:55:46 MINING DETAIL DRAFTSPERSON Checo Conklin MD [facility] CPT-41787 Level 4 Est. Patient 17:10:53 CDT Checo Conklin MD [facility] CPT-67968 Level 3 Est. Patient 15:56:22 CDT Checo Conklin MD [facility] CPT-49891 Level 3 Est. Patient 15:29:07 CDT Checo Conklin MD [facility] CPT-97053 Level 3 Est. Patient 14:38:41 CDT Checo Conklin MD [facility] CPT-21796 Level 3 Est. Patient 15:22:03 MINING DETAIL DRAFTSPERSON Thomas reynolds DO [facility] CPT-68487 Level 3 Est. Patient 13:34:17 MINING DETAIL DRAFTSPERSON Checo Conklin MD [facility] CPT-54174 Level 3 Est. Patient 12:29:32 CDT Dangelo arroyo MD [facility] CPT-32514 Level 3 Est. Patient 16:53:02 CDT Checo Conklin MD [facility] CPT-02503 Level 3 Est. Patient 16:37:13 CDT Checo Conklin MD [facility] CPT-70779 Level 3 Est. Patient 16:16:59 CDT Paul Hamlin MD [facility] CPT-63405 Level 3 Est. Patient 14:20:13 CDT Dangelo arroyo MD [facility] CPT-37267 Level 4 Est. Patient 11:29:33 CDT Checo Conklin MD [facility] CPT-72126 Level 3 Est. Patient 17:08:31 CDT Checo Conklin MD [facility] CPT-76462 Level 3 Est. Patient 16:50:42 MINING DETAIL DRAFTSPERSON Checo Conklin MD [facility] CPT-07783 Level 4 Est. Patient 09:26:08 MINING DETAIL DRAFTSPERSON Checo Conklin MD [facility] CPT-84030 Level 3 Est. Patient 11:37:10 CDT Checo Conklin MD [facility] CPT-70885 Level 4 Est. Patient 14:07:38 CDT Checo Conklin MD [facility] CPT-96685 Level 3 Est. Patient 09:54:41 CDT Checo Conklin MD [facility] CPT-51906 Level 3 Est. Patient 11:10:54 CDT Pual Hamlin MD [facility] CPT-26577 Level 3 Est. Patient 14:16:56 MINING DETAIL DRAFTSPERSON Checo Conklin MD [facility] CPT-90012 Level 3 Est. Patient 11:04:11 MINING DETAIL DRAFTSPERSON Checo Conklin MD [facility] CPT-87251 Level 3 Est. Patient 17:09:26 CDT Dangelo arroyo MD [facility] CPT-01959 Level 3 Est. Patient 16:54:37 CDT Checo Conklin MD [facility] Procedures Code Procedure Name Date Entry Date Standard Desc ription CPT-14421 Abd compl w upright - XRAY USE ONLY 1 1:36:54 MINING DETAIL DRAFTSPERSON CPT-93616 UA w micro - LAB USE ONLY 17:06:46 CDT 2015 CPT-98805 BHCG Qual - LAB USE ONLY 17:06:46 CDT 05/06 CPT-94687 CMP - LAB USE ONLY 17:06:46 CDT CPT-30140 CBC with Diff - LAB USE ONLY 17:06:45 CDT 2 CPT-94986 Venipuncture Draw Fee 17:06:45 CDT CPT-LR Lesion Removal 19:53:27 CDT CPT-OV Office Visit 11:31:28 CDT CPT-86614 Tubersol 09:39:29 CDT CPT-J2550 Phenergan 25 mg (Promethazine) 13:59:02 MINING DETAIL DRAFTSPERSON CPT-J1885 Toradol 60 mg (Ketorolac) 13:59:02 MINING DETAIL DRAFTSPERSON 2012
--- OUTSIDE RECORDS SUMMARY | 2019-09-29 01:54 | XMS REPORT | Clinical Summary ---
Author Author Admin, Bethany Gonzales Organization [facility] Address Unknown Phone Unavailable Allergies, Adverse Reactions, [...] involving lower leg Vertigo 780.4 Resolved Checo Cnoklin MD Dizziness and giddiness Constipation 564.00 Active [...] MD 201 08/27/26 CONCUSSION ICD-850.9 Inactive Checo Johsua UTI ICD-599.0 Inactive Checo Conklin MD 2013 [...] hours as needed for p ain IBUPROFEN [id number] Active Dangelo Rangel MD Acti ve PAROXETINE HCL 40 MG ORAL TABLET 1 po qd PAR OXETINE HCL 17047352463 Active Checo Conklin MD Active MIRALAX ORAL POWDER 8.5 to 17g po qd PRN Constipation POLYETHYLENE GLYCOL 3350 84634771646 No Longer Active Checo Conklin MD Active PROTONIX 40 MG ORAL TABLET DELAYED RELEASE 1 pill by [facility] daily, for acid reflux PANTOPRAZOLE SODIUM 53330275881 No Longer Activ e Corry Méndez LPN Active FLAGYL 500 MG ORAL TABLET 1 tablet by mouth bid 08/29 METRONIDAZOLE 86384716656 No Longer Active Corry Méndez LPN Active CLARITHROMYCIN 500 MG ORAL TABLET 1 tab po BID x 14 days CLARITHROMYCIN 28741125724 No Longer Active Corry Méndez LPN Active AMOXICILLIN 500 MG ORAL CAPSULE 2 po BID x 14 days for H. Pylori AMOXICILLIN 78723334721 No Longer Active Corry Méndez LPN Active FLUTICASONE PROPIONATE 50 MCG/ACT NASAL SUSPENSION 2 s prays/nostril qd PRN Congestion/Allergies FLUTICASONE PROPIONATE 1082314550 9 No Longer Active Checo Conklin MD Active AMOXICILLIN 500 MG ORAL CAPSULE 2 po BID x 10 days 201 01/15/27 AMOXICILLIN 52358221165 No Longer Active Checo Conklin MD Activ e CLARITIN 10 MG ORAL TABLET 1 tablet by mouth daily as needed for allergies LORATADINE 02837879024 No Longer Active Checo Ortiz MD Active BACTRIM DS 800-160 MG ORAL TABLET 1 tab by mouth twice daily 201 12/19/26 TRIMETHOPRIM-SULFAMETHOXAZOLE 68894838852 No Longer Active Ragini Carrillo MD Active DIFLUCAN 150 MG ORAL TABLET 1 tablet by mouth qod 2015 FLUCONAZOLE 20009902776 No Longer Active Efren Medel WALL M[employer]OR DEPARTMENT SUPERVISOR Act mike AZITHROMYCIN 250 MG ORAL TABLET 2 po qd x 1 day, then 1 po q d x 4 days AZITHROMYCIN 83565550364 No Longer Active Efren flores [employer] DEPARTMENT SUPERVISOR Active FLAGYL 500 MG ORAL TABLET 1 tablet by mouth bid 04/13 METRONIDAZOLE 21247932652 No Longer Active Checo Conklin MD Acti ve FOCALIN XR 10 MG ORAL CAPSULE EXTENDED RELEASE 24 HOUR 1 po q a.m. DEXMETHYLPHENIDATE HCL 39537791531 Active Checo Conklin MD Active MAGNESIUM CITRATE 1.745 GM/30ML ORAL SOLUTION 150ml po BID P RN Constipation MAGNESIUM CITRATE 56422334953 No Longer Active hCeco Conklin MD Active BACTROBAN 2 % EXTERNAL CREAM Apply to affected area BID for up to 10 days MUPIROCIN CALCIUM 51223641499 No Longer Active Checo Conklin MD Active HYDROCODONE-ACETAMINOPHEN 5-325 MG ORAL TABLET 1 tab b y mouth every 6 hours as needed HYDROCODONE-ACETAMINOPHEN 09695103009 No Longer Active Checo Conklin MD Active IBUPROFEN 800 MG ORAL TABLET 1 tab every 8 hours with food 03/20 IBUPROFEN 25505871326 No Longer Active Checo Conklin MD Active DIFLUCAN 150 MG ORAL TABLET 1 tablet by mouth if neede d, hold until symptoms start FLUCONAZOLE 63542349903 No Longer Active Checo Conklin MD Active BACTRIM DS 800-160 MG ORAL TABLET 1 tab by mouth twice daily 201 11/23/03 TRIMETHOPRIM-SULFAMETHOXAZOLE 59558533132 No Longer Active K bernice Méndez, HOUSE CARPENTER HELPER Active HYDROCODONE-ACETAMINOPHEN 5-325 MG ORAL TABLET 0.5 to 1 tab by mouth every 6 hours as needed HYDROCODONE-ACETAMINOPHEN 13569940304 No Longer Active Checo Conklin MD Active ONDANSETRON 8 MG ORAL TABLET DISINTEGRATING place one tablet on tongue and allow to dissolve every 6 hours as needed for vomitting ONDANSETRON 46461287131 No Longer Active Checo Conklin MD Activ e COMPRO 25 MG RECTAL SUPPOSITORY insert or apply one garza ppository rectally as directed every 12 hours as needed for nausea PROCHLORPERAZINE 49393166662 No Longer Active Checo Conklin MD A ctive SUMATRIPTAN SUCCINATE 100 MG ORAL TABLET Take one PRN for migran e SUMATRIPTAN SUCCINATE 07769503084 No Longer Active Checo Conklin MD Active TRAVEL SICKNESS 25 MG ORAL TABLET CHEWABLE chew and sw allow one tablet every 6 hours as needed MECLIZINE HCL 89569809600 No Longer A ctive Checo Conklin MD Active BUPROPION HCL ER (SR) 100 MG ORAL TABLET EXTENDED RELE ASE 12 HOUR take one tablet by mouth one time daily for one week then take 1 two times daily BUPROPION HCL 55477096137 No Longer Active Checo gallagher MD Active TERBINAFINE HCL 250 MG ORAL TABLET take one table PO one time da moises TERBINAFINE HCL 93387791297 No Longer Active Checo Conklin MD Active METOCLOPRAMIDE HCL 10 MG ORAL TABLET take one PO tid PRN nausea METOCLOPRAMIDE HCL 78377184486 No Longer Active Checo Conklin MD Active DICLOFENAC SODIUM 75 MG ORAL TABLET DELAYED RELEASE 1 tablet by mouth twice daily PRN Knee pain DICLOFENAC SODIUM 77594534890 No Longer Active Checo Conklin MD Active LAMISIL 250 MG ORAL TABLET 1 po qd TERBINAFI NE HCL 59015543960 No Longer Active Checo Conklin MD Active REGLAN 10 MG ORAL TABLET 1 po TID PRN Nausea 3 METOCLOPRAMIDE HCL 64018455719 No Longer Active Checo Conklin MD Active CELEXA 20 MG ORAL TABLET 1 tablet by mouth daily 09/26 CITALOPRAM HYDROBROMIDE 68886733276 No Longer Active Checo Conklin MD Active AZITHROMYCIN 250 MG ORAL TABLET 2 po qd x 1 day, then 1 po q d x 4 days AZITHROMYCIN 67318265290 No Longer Active Checo Ortiz MD Active HYDROCODONE-ACETAMINOPHEN 5-325 MG ORAL TABLET 1 po q 6hr PRN Pa in HYDROCODONE-ACETAMINOPHEN 52096573837 No Longer Active Lenora Conklin MD Active PHENAZOPYRIDINE HCL 200 MG ORAL TABLET take 1 tab po TID for bladder pain PHENAZOPYRIDINE HCL 65495443541 No Longer Active Joe Conklin MD Active CIPRO 500 MG ORAL TABLET 1 tablet by mouth twice daily CIPROFLOXACIN HCL 08045122780 No Longer Active Dangelo Rangel MD Active HYDROCODONE-ACETAMINOPHEN 5-325 MG ORAL TABLET 1/2 to 1 po q 4 hours prn cough HYDROCODONE-ACETAMINOPHEN 20715021363 No Longer Activ e Dangelo Rangel MD Active BACTRIM DS 800-160 MG ORAL TABLET 1 po BID x 7 days 29/04/10 SULFAMETHOXAZOLE-TRIMETHOPRIM 39368529220 No Longer Active Checo Conklin MD Active PREDNISONE 20 MG ORAL TABLET 2 tabs daily for 3 days, 1 tab daily for 3 days, 1/2 tab daily for 2 days PREDNISONE 58402183918 No Longer Active Checo Conklin MD Active TRIAMCINOLONE ACETONIDE 0.1 % EXTERNAL OINTMENT Apply to affected areas TID for up to 2 weeks TRIAMCINOLONE ACETONIDE 91948765931 No Longer Active Checo Conklin MD Active CEFDINIR 300 MG ORAL CAPSULE by mouth twice a day 2013 CEFDINIR 81638114820 No Longer Active Dangelo Rangel MD Acti ve BUPROPION HCL ER (SMOKING DET) 150 MG ORAL TABLET EXTE NDED RELEASE 12 HOUR 1 a day for 1 week then 1 twice a day BUPROPION HCL (SMOKING DETER) 78677781858 No Longer Active Checo Conklin MD Active SIMVASTATIN 20 MG ORAL TABLET 1 po qd SIMVASTAT IN 83161463639 Active Checo Conklin MD Active CHANTIX STARTING MONTH KARTHIK 0.5 MG X 11 & 1 MG X 42 ORA L TABLET 0.5mg daily for 3 days, then 0.5mg BID for 4 days, then 1mg BID VARENICLINE TARTRATE 90096146710 No Longer Active Checo Conklin MD Activ e XANAX 0.5 MG ORAL TABLET 1 po BID PRN anxiety A LPRAZOLAM 94429160968 Active Checo Conklin MD Active CONCERTA 18 MG ORAL TABLET EXTENDED RELEASE 1 po q a.m. METHYLPHENIDATE HCL 00350841489 No Longer Active Checo Conklin MD Active AMBIEN 5 MG ORAL TABLET 1 po qHS PRN Insomnia Z OLPIDEM TARTRATE 10303734011 Active Checo Conklin MD Active TRAZODONE HCL 100 MG ORAL TABLET 0.5 to 1 po qHS PRN Insomnia 20 30/07/08 TRAZODONE HCL 77169700861 No Longer Active Checo Conklin MD Active FIORICET 325-50-40 MG TAB 1 tablet by mouth four times daily as needed [id number] 92254662732 No Longer Active Checo Conklin MD Active PHENERGAN CREAM* 25mg applied to wrist q6hr PRN Nausea PHENERGAN CREAM* No Longer Active Checo Gonzales ctive FLONASE 50 MCG/ACT NASAL SUSPENSION 1 spray each nostril am and hs FLUTICASONE PROPIONATE 58146389925 No Longer Active Checo Conklin MD Active ANTIPYRINE-BENZOCAINE 5.4-1.4 % OTIC SOLUTION 1-2 drops in affec yohannes ear BENZOCAINE-ANTIPYRINE 82622187593 No Longer Active Checo Conklin MD Active CEFDINIR 300 MG ORAL CAPSULE 1 po bid CEFDINIR 09687234073 No Longer Active Checo Conklin MD Active PREDNISONE 20 MG ORAL TABLET 2 tabs daily for 3 days, 1 tab daily for 3 days, 1/2 tab daily for 2 days PREDNISONE 39436341086 No Longer Active Checo Conklin MD Active AZITHROMYCIN 250 MG ORAL TABLET 2 po qd x 1 day, then 1 po q d x 4 days AZITHROMYCIN 19481565516 No Longer Active Checo Ortiz MD Active PREDNISONE 20 MG ORAL TABLET 2 tabs daily for 3 days, 1 tab daily for 3 days, 1/2 tab daily for 2 days PREDNISONE 35157655199 No Longer Active Checo Conklin MD Active ZITHROMAX Z-KARTHIK 250 MG ORAL TABLET 2 today, then 1 daily for 4 d ays AZITHROMYCIN 30784268596 No Longer Active Paul Hamlin MD Active FOCALIN XR 10 MG ORAL CAPSULE EXTENDED RELEASE 24 HOUR 1 po q a. m. DEXMETHYLPHENIDATE HCL 16172828979 No Longer Active Paul Hamlin MD Active PERCOCET 10-325 MG ORAL TABLET 1 tablet every 6 hours as needed for pain OXYCODONE-ACETAMINOPHEN 99406248870 No Longer Active Paul Hamlin MD Active LORTAB 5-500 MG ORAL TABLET 1/2 to 1 tablet by mouth e very 4 hours as needed for pain HYDROCODONE-ACETAMINOPHEN 61098950914 No Longer Active Checo Conklin MD Active FOCALIN XR 15 MG ORAL CAPSULE EXTENDED RELEASE 24 HOUR 1 po q a. m. DEXMETHYLPHENIDATE HCL 03896041205 No Longer Active Checo Conklin MD Active ZOFRAN ODT 4 MG ORAL TABLET DISINTEGRATING 1 po q6hr PRN Nausea ONDANSETRON 97842146376 No Longer Active Checo Conklin MD Active PERCOCET 5-325 MG ORAL TABLET 1 tablet by mouth every 6 hour s as needed OXYCODONE-ACETAMINOPHEN 06829011038 No Longer Active Checo Conklin MD Active PYRIDIUM 200 MG ORAL TABLET take 1 tab po TID prn urinary pain. PHENAZOPYRIDINE HCL 67993605353 No Longer Active Checo Joshua Active FLUCONAZOLE 150 MG ORAL TABLET take 1 tab po qday once FLUCONAZOLE 26481566400 No Longer Active Dangelo Rangel MD Acti ve CIPRO 500 MG ORAL TABLET 1 tablet by mouth twice daily CIPROFLOXACIN HCL 63735595606 No Longer Active Dangelo Rangel MD Active PYRIDIUM 200 MG ORAL TABLET take 1 tab po TID prn urinary pain. PYRIDIUM 200 MG ORAL TABLET 8496151 PHENAZOPYRIDINE HCL Inactive PERCOCET 5-325 MG ORAL TABLET 1 tablet by mouth every 6 hour s as needed PERCOCET 5-325 MG ORAL TABLET 7075474 OXYCODONE-ACETAMINOPHEN Inactive ZOFRAN ODT 4 MG ORAL TABLET DISINTEGRATING 1 po q6hr PRN Nausea ZOFRAN ODT 4 MG ORAL TABLET DISINTEGRATING 893290 ONDAN SETRON Inactive FOCALIN XR 15 MG [...] for pain PERCOCET 10-325 MG ORAL TABLET 0595821 OXYCODONE-ACETAMI NOPHEN Inactive FOCALIN XR 10 MG ORAL CAPSULE EXTENDED RELEASE 24 HOUR 1 po q a. m. FOCALIN XR 10 MG ORAL CAPSULE EXTENDED RELEASE 24 HOUR DEXMETHYLPHENIDATE HCL Inactive CEFDINIR 300 MG ORAL CAPSULE 1 po bid CEFDINI R 300 MG ORAL CAPSULE 654810 CEFDINIR Inactive ANTIPYRINE-BENZOCAINE 5.4-1.4 % OTIC SOLUTION 1-2 drops in affec yohannes ear ANTIPYRINE-BENZOCAINE 5.4-1.4 % OTIC SOLUTION 651367 BENZOCAINE-ANTIPYRINE Inactive FLONASE 50 MCG/ACT NASAL SUSPENSION 1 spray each nostril am and hs FLONASE 50 MCG/ACT NASAL SUSPENSION 3386205 FLUTICASONE PROPIONATE I nactive PHENERGAN CREAM* 25mg applied to wrist q6hr PRN Nausea PHENERGAN CREAM* Inactive FIORICET 325-50-40 MG TAB 1 tablet by mouth four times daily as needed FIORICET 325-50-40 MG TAB ACETAMINOPHEN-C AFF-BUTALBITAL Inactive TRAZODONE HCL 100 MG ORAL TABLET 0.5 to 1 po qHS PRN Insomnia 20 30/07/08 TRAZODONE HCL 100 MG ORAL TABLET 936659 TRAZODONE HCL Inactive CONCERTA 18 MG ORAL [...] cough HYDROCODONE-ACETAMINOPHEN 5-325 MG ORAL TABLET 8 48294 HYDROCODONE-ACETAMINOPHEN Inactive PHENAZOPYRIDINE HCL 200 MG ORAL TABLET take 1 tab po TID for bladder pain PHENAZOPYRIDINE HCL 200 MG ORAL TABLET 3571292 PHENAZOPYRIDINE HCL Inactive HYDROCODONE-ACETAMINOPHEN 5-325 MG ORAL TABLET 1 po q 6hr PRN Pa in HYDROCODONE-ACETAMINOPHEN 5-325 MG ORAL TABLET 185606 HYDROCODONE-ACETAMINOPHEN Inactive CELEXA 20 MG ORAL TABLET 1 tablet by mouth daily 09/26 CELEXA 20 MG ORAL TABLET 131851 CITALOPRAM HYDROBROMIDE Inactive REGLAN 10 MG ORAL TABLET 1 po TID PRN Nausea 3 REGLAN 10 MG ORAL TABLET 352331 METOCLOPRAMIDE HCL Inactive LAMISIL 250 MG ORAL TABLET 1 po qd L AMISIL 250 MG ORAL TABLET 520135 TERBINAFINE HCL Inactive DICLOFENAC SODIUM 75 MG ORAL TABLET DELAYED RELEASE 1 tablet by mouth twice daily PRN Knee pain DICLOFENAC SODIUM 75 MG ORAL TABLET DELAYED RELEASE 226497 DICLOFENAC SODIUM Inactive METOCLOPRAMIDE HCL 10 MG ORAL TABLET take one PO tid PRN nausea METOCLOPRAMIDE HCL 10 MG ORAL TABLET 300447 METOCLOPRAM ZACH HCL Inactive TERBINAFINE HCL 250 MG ORAL TABLET take one table PO one time da moises TERBINAFINE HCL 250 MG ORAL TABLET 604899 TERBINAFINE H CL Inactive BUPROPION HCL ER [...] SICKNESS 25 M G ORAL TABLET CHEWABLE 113439 MECLIZINE HCL Inactive SUMATRIPTAN SUCCINATE 100 MG ORAL TABLET Take one PRN for migran e SUMATRIPTAN SUCCINATE 100 MG ORAL TABLET 593703 SUMATRIPTAN SUCCINATE Inactive COMPRO 25 MG RECTAL SUPPOSITORY insert or apply one garza ppository rectally as directed every 12 hours as needed for nausea COMPRO 25 MG RECTAL SUPPOSITORY 931655 PROCHLORPERAZINE Inactive ONDANSETRON 8 MG ORAL TABLET DISINTEGRATING place one tablet on tongue and allow to dissolve every 6 hours as needed for vomitting ONDANSETRON 8 MG ORAL TABLET DISINTEGRATING 043847 ONDANSETRON Inactive HYDROCODONE-ACETAMINOPHEN 5-325 MG ORAL TABLET 0.5 to 1 tab by mouth every 6 hours as needed HYDROCODONE-ACETAMIN OPHEN 5-325 MG ORAL TABLET 590431 HYDROCODONE-ACETAMINOPHEN Inactive BACTRIM DS 800-160 MG ORAL TABLET 1 tab by mouth twice daily 201 11/23/03 BACTRIM DS 800-160 MG ORAL TABLET 19820918 TRIMETHOPRIM-SULFAMETHOXAZOLE Inactive DIFLUCAN 150 MG ORAL TABLET 1 tablet by mouth if neede d, hold until symptoms start DIFLUCAN 150 MG ORAL TABLET 019071 FLUCONAZ OLE Inactive IBUPROFEN 800 MG ORAL TABLET 1 tab every 8 hours with food 03/20 IBUPROFEN 800 MG ORAL TABLET 460798 IBUPROFEN [place] ctive HYDROCODONE-ACETAMINOPHEN 5-325 MG ORAL TABLET 1 tab b y mouth every 6 hours as needed HYDROCODONE-ACETAMINOPHEN 5-325 MG ORAL TABLET 278447 HYDROCODONE-ACETAMINOPHEN Inactive BACTROBAN 2 % EXTERNAL CREAM Apply to affected area BID for up to 10 days BACTROBAN 2 % EXTERNAL CREAM 943225 MUPIROCIN CA LCIUM Inactive MAGNESIUM CITRATE 1.745 GM/30ML ORAL SOLUTION 150ml po BID P RN Constipation MAGNESIUM CITRATE 1.745 GM/30ML ORAL SOLUTION 10 04063 MAGNESIUM CITRATE Inactive DIFLUCAN 150 MG ORAL TABLET 1 tablet by mouth qod 2015 DIFLUCAN 150 MG ORAL TABLET 699581 FLUCONAZOLE Inactive BACTRIM DS 800-160 MG ORAL TABLET 1 tab by mouth twice daily 201 12/19/26 BACTRIM DS 800-160 MG ORAL TABLET 373101 TRIMETHOPRIM-SULFAMETHOXAZOLE Inactive CLARITIN 10 MG ORAL TABLET 1 tablet by mouth daily as needed for allergies CLARITIN 10 MG ORAL TABLET 103410 LORATADINE I nactive FLUTICASONE PROPIONATE 50 MCG/ACT NASAL SUSPENSION 2 s prays/nostril qd PRN Congestion/Allergies FLUTICASONE PROPION ATE 50 MCG/ACT NASAL SUSPENSION 1186577 FLUTICASONE PROPIONATE Inactive MIRALAX ORAL POWDER 8.5 to 17g po qd PRN Constipation MIRALAX ORAL POWDER 119494 POLYETHYLENE GLYCOL 3350 Inactive CIPRO 500 MG ORAL TABLET 1 tablet by mouth twice daily CIPRO 500 MG ORAL TABLET 609353 CIPROFLOXACIN HCL Inactive FLUCONAZOLE 150 MG ORAL TABLET take 1 tab po qday once FLUCONAZOLE 150 MG ORAL TABLET 068564 FLUCONAZOLE Inactive ZITHROMAX Z-KARTHIK 250 MG ORAL TABLET 2 today, then 1 daily for 4 d ays ZITHROMAX Z-KARTHIK 250 MG ORAL TABLET 771517 AZITHROMYCIN Inactive PREDNISONE 20 MG ORAL TABLET 2 tabs daily for 3 days, 1 tab daily for 3 days, 1/2 tab daily for 2 days PREDNISONE 20 MG ORAL T ABLET 320096 PREDNISONE Inactive AZITHROMYCIN 250 MG ORAL TABLET 2 po qd x 1 day, then 1 po q d x 4 days AZITHROMYCIN 250 MG ORAL TABLET 945602 AZITHROMY SPARKLE Inactive PREDNISONE 20 MG ORAL TABLET 2 tabs daily for 3 days, 1 tab daily for 3 days, 1/2 tab daily for 2 days PREDNISONE 20 MG ORAL TABLET 706750 PREDNISONE Inactive CEFDINIR 300 MG ORAL CAPSULE by mouth twice a day 2013 CEFDINIR 300 MG ORAL CAPSULE 564195 CEFDINIR Inactive TRIAMCINOLONE ACETONIDE 0.1 % EXTERNAL OINTMENT Apply to affected areas TID for up to 2 weeks TRIAMCINOLONE ACETON ZACH 0.1 % EXTERNAL OINTMENT 8376125 TRIAMCINOLONE ACETONIDE Inactive PREDNISONE 20 MG ORAL TABLET 2 tabs daily for 3 days, 1 tab daily for 3 days, 1/2 tab daily for 2 days PREDNISONE 20 MG ORAL T ABLET 647201 PREDNISONE Inactive BACTRIM DS 800-160 MG ORAL TABLET 1 po BID x 7 days 29/04/10 BACTRIM DS 800-160 MG ORAL TABLET 515539 SULFAMETHOXAZOLE-TRIMETHOP RIM Inactive CIPRO 500 MG ORAL TABLET 1 tablet by mouth twice daily CIPRO 500 MG ORAL TABLET 492619 CIPROFLOXACIN HCL Inactive AZITHROMYCIN 250 MG ORAL TABLET 2 po qd x 1 day, then 1 po q d x 4 days AZITHROMYCIN 250 MG ORAL TABLET 786780 AZITHROMY SPARKLE Inactive FLAGYL 500 MG ORAL TABLET 1 tablet by mouth bid 04/13 FLAGYL 500 MG ORAL TABLET 315605 METRONIDAZOLE Inactive AZITHROMYCIN 250 MG ORAL TABLET 2 po qd x 1 day, then 1 po q d x 4 days AZITHROMYCIN 250 MG ORAL TABLET 567262 AZITHROMY SPARKLE Inactive AMOXICILLIN 500 MG ORAL CAPSULE 2 po BID x 10 days 201 01/15/27 AMOXICILLIN 500 MG ORAL CAPSULE 025935 AMOXICILLIN Inactive AMOXICILLIN 500 MG ORAL CAPSULE 2 po BID x 14 days for H. Pylori AMOXICILLIN 500 MG ORAL CAPSULE 852446 AMOXICILLIN Inactive CLARITHROMYCIN 500 MG ORAL TABLET 1 tab po BID x 14 days CLARITHROMYCIN 500 MG ORAL TABLET 172615 CLARITHROMYCIN Inacti ve FLAGYL 500 MG ORAL TABLET 1 tablet by mouth bid 08/29 FLAGYL 500 MG ORAL TABLET 055225 METRONIDAZOLE Inactive PROTONIX 40 MG ORAL TABLET DELAYED RELEASE 1 pill by m outh daily, for acid reflux PROTONIX 40 MG ORAL TABLET DELAYED RELEAS E 457470 PANTOPRAZOLE SODIUM Inactive Immunizations Vaccine Administration Date [...] ... - Chemistry sodium, serum 139 mmol/L 075-570 5564/11/28 carbon dioxide, venous blood 26.0 mmol/L 21.0-32 [...] 5.0-8.5 Encounters Code Encounter Date Provider Facility CPT-32631 [id number] Vst-Est Level III 09:37:41 CDT Dangelo Rangel MD [facility] CPT-63279 Level 4 Est. Patient 08:57:51 PATTERN DESIGNER Checo Conklin MD [facility] CPT-56594 Level 3 Est. Patient 11:24:55 PATTERN DESIGNER Efren almendarez [facility] CPT-93656 Level 3 Est. Patient 13:05:44 CDT Paul Hamlin MD [facility] CPT-40828 Level 3 Est. Patient 11:29:55 CDT Checo Conklin MD [facility] CPT-15687 Level 4 Est. Patient 11:08:12 PATTERN DESIGNER Checo Conklin MD [facility] CPT-14804 Level 4 Est. Patient 16:06:48 PATTERN DESIGNER Checo Conklin MD [facility] CPT-16973 Level 3 Est. Patient 09:11:49 CDT Efren almendarez [facility] CPT-66096 Level 2 Est. Patient 19:53:27 CDT Tanner hill MD [facility] CPT-15623 Level 3 Est. Patient 09:15:34 CDT Efren almendarez [facility] CPT-29811 Level 3 Est. Patient 11:28:51 PATTERN DESIGNER Efren almendarez [facility] CPT-95991 Level 4 Est. Patient 13:55:46 PATTERN DESIGNER Checo Conklin MD [facility] CPT-85204 Level 4 Est. Patient 17:10:53 CDT Checo Conklin MD [facility] CPT-36196 Level 3 Est. Patient 15:56:22 CDT Checo Conklin MD [facility] CPT-29815 Level 3 Est. Patient 15:29:07 CDT Checo Conklin MD [facility] CPT-52019 Level 3 Est. Patient 14:38:41 CDT Checo Conklin MD [facility] CPT-81036 Level 3 Est. Patient 15:22:03 PATTERN DESIGNER Thomas reynolds DO [facility] CPT-29859 Level 3 Est. Patient 13:34:17 PATTERN DESIGNER Checo Conklin MD [facility] CPT-53613 Level 3 Est. Patient 12:29:32 CDT Dangelo arroyo MD [facility] CPT-23086 Level 3 Est. Patient 16:53:02 CDT Checo Conklin MD [facility] CPT-06900 Level 3 Est. Patient 16:37:13 CDT Checo Conklin MD [facility] CPT-78623 Level 3 Est. Patient 16:16:59 CDT Paul Hamlin MD [facility] CPT-43719 Level 3 Est. Patient 14:20:13 CDT Dangelo arroyo MD [facility] CPT-41337 Level 4 Est. Patient 11:29:33 CDT Checo Conklin MD [facility] CPT-87274 Level 3 Est. Patient 17:08:31 CDT Checo Conklin MD [facility] CPT-00315 Level 3 Est. Patient 16:50:42 PATTERN DESIGNER Checo Conklin MD [facility] CPT-62691 Level 4 Est. Patient 09:26:08 PATTERN DESIGNER Checo Conklin MD [facility] CPT-01273 Level 3 Est. Patient 11:37:10 CDT Checo Conklin MD [facility] CPT-90221 Level 4 Est. Patient 14:07:38 CDT Checo Conklin MD [facility] CPT-81028 Level 3 Est. Patient 09:54:41 CDT Checo Conklin MD [facility] CPT-79652 Level 3 Est. Patient 11:10:54 CDT Paul Hamlin MD [facility] CPT-02596 Level 3 Est. Patient 14:16:56 PATTERN DESIGNER Checo Conklin MD [facility] CPT-96126 Level 3 Est. Patient 11:04:11 PATTERN DESIGNER Checo Conklin MD [facility] CPT-91811 Level 3 Est. Patient 17:09:26 CDT Dangelo arroyo MD [facility] CPT-46621 Level 3 Est. Patient 16:54:37 CDT Checo Conklin MD [facility] Procedures Code Procedure Name Date Entry Date Standard Desc ription CPT-27555 Wrist, right, comp 3V - XRAY USE ONLY 09:24:31 CDT CPT-05109 Abd compl w upright - XRAY USE ONLY 1 1:36:54 PATTERN DESIGNER CPT-03410 UA w micro - LAB USE ONLY 17:06:46 CDT 2015 CPT-92091 BHCG Qual - LAB USE ONLY 17:06:46 CDT 05/06 CPT-57067 CMP - LAB USE ONLY 17:06:46 CDT CPT-58583 CBC with Diff - LAB USE ONLY 17:06:45 CDT 2 CPT-22286 Venipuncture Draw Fee 17:06:45 CDT CPT-LR Lesion Removal 19:53:27 CDT CPT-OV Office Visit 11:31:28 CDT CPT-81463 Tubersol 09:39:29 CDT CPT-J2550 Phenergan 25 mg (Promethazine) 13:59:02 PATTERN DESIGNER CPT-J1885 Toradol 60 mg (Ketorolac) 13:59:02 PATTERN DESIGNER 2012
--- OUTSIDE RECORDS SUMMARY | 2019-09-29 01:54 | XMS REPORT | Clinical Summary ---
Author Author Admin, Bethany Gonzales Organization [employer] Address Unknown Phone Unavailable Allergies, Adverse Reactions, [...] Rangel MD Body Mass Index 25.0-25.9, adult DIABETES ICD-V18.0 Inactive Checo Conklin MD 201 08/27/26 CONCUSSION ICD-850.9 Inactive Checo Joshua UTI ICD-599.0 Inactive Checo Conklin MD 2013 BREAST CANCER ICD-V16.3 Inactive Checo Joshua ABDOMINAL PAIN RIGHT LOWER QUADRANT ICD-789.03 Inactive Checo Conklin MD HEADACHE, TENSION ICD-307.81 Inactive Checo Conklin MD PHARYNGITIS ICD-462 Ozzy Conklin MD Hypoglycemia, unspecified ICD-251.2 Inactive Checo Conklin MD Insomnia ICD-780.52 Inactive Checo Joshua OTITIS MEDIA-RIGHT ICD-382.9 Ozzy Conklin MD Breast mass, right ICD-611.72 Ozzy Conklin MD Onychomycosis, toenails ICD-110.1 Inactive Aracelis Conklin MD Sinusitis ICD-461.9 Inactive Checo Conklin MD Insect bite ICD-919.4 Inactive Checo Conklin MD Carbuncle/furuncle NOS ICD-680.9 Inactive Hilaria Conklin MD Mastalgia ICD-611.71 Inactive Checo Joshua Knee pain, right ICD-719.46 Inactive Checo gallagher MD Vertigo ICD-780.4 Inactive Checo Conklin MD 2014 Abscess, skin ICD-682.9 Inactive Checo richey MD BRONCHITIS, ACUTE ICD-466.0 Ozzy gallagher MD Abdominal pain ICD-789.00 Inactive Checo ngo MD Cough ICD-786.2 Inactive Checo Conklin MD 2016 Pedal edema ICD-782.3 Inactive Checo Conklin MD 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 Ozzy Conklin MD Abdominal pain, generalized ICD-789.07 Inactive Checo Conklin MD Urinary frequency ICD-788.41 Ozzy Conklin MD Bacterial vaginosis ICD-616.10 Inactive Lenora Conklin MD Repeated falls ICD-781.99 Ozzy ngo [...] hours as needed for p ain IBUPROFEN [id number] Active Dangelo Rangel MD Acti ve PAROXETINE HCL 40 MG ORAL TABLET 1 po qd PAR OXETINE HCL 74985445337 Active Checo Conklin MD Active MIRALAX ORAL POWDER 8.5 to 17g po qd PRN Constipation POLYETHYLENE GLYCOL 3350 52062587945 No Longer Active Checo Conklin MD Active PROTONIX 40 MG ORAL TABLET DELAYED RELEASE 1 pill by [facility] daily, for acid reflux PANTOPRAZOLE SODIUM 77050242497 No Longer Activ e Corry Méndez LPN Active FLAGYL 500 MG ORAL TABLET 1 tablet by mouth bid 08/29 METRONIDAZOLE 19513123255 No Longer Active Corry Méndez LPN Active CLARITHROMYCIN 500 MG ORAL TABLET 1 tab po BID x 14 days CLARITHROMYCIN 21325748280 No Longer Active Corry Méndez LPN Active AMOXICILLIN 500 MG ORAL CAPSULE 2 po BID x 14 days for H. Pylori AMOXICILLIN 22133170790 No Longer Active Corry Méndez LPN Active FLUTICASONE PROPIONATE 50 MCG/ACT NASAL SUSPENSION 2 s prays/nostril qd PRN Congestion/Allergies FLUTICASONE PROPIONATE 7132780570 9 No Longer Active Checo Conklin MD Active AMOXICILLIN 500 MG ORAL CAPSULE 2 po BID x 10 days 201 01/15/27 AMOXICILLIN 63060877375 No Longer Active Checo Conklin MD Activ e CLARITIN 10 MG ORAL TABLET 1 tablet by mouth daily as needed for allergies LORATADINE 78606772426 No Longer Active Checo Ortiz MD Active BACTRIM DS 800-160 MG ORAL TABLET 1 tab by mouth twice daily 201 12/19/26 TRIMETHOPRIM-SULFAMETHOXAZOLE 23532570804 No Longer Active Ragini Carrillo MD Active DIFLUCAN 150 MG ORAL TABLET 1 tablet by mouth qod 2015 FLUCONAZOLE 14778165623 No Longer Active Efren Medel CRNA Act mike AZITHROMYCIN 250 MG ORAL TABLET 2 po qd x 1 day, then 1 po q d x 4 days AZITHROMYCIN 45457144726 No Longer Active Efren flores CRNA Active FLAGYL 500 MG ORAL TABLET 1 tablet by mouth bid 04/13 METRONIDAZOLE 50683308504 No Longer Active Checo Conklin MD Acti ve FOCALIN XR 10 MG ORAL CAPSULE EXTENDED RELEASE 24 HOUR 1 po q a.m. DEXMETHYLPHENIDATE HCL 68491335986 Active Checo Conklin MD Active MAGNESIUM CITRATE 1.745 GM/30ML ORAL SOLUTION 150ml po BID P RN Constipation MAGNESIUM CITRATE 51304276531 No Longer Active Checo Conklin MD Active BACTROBAN 2 % EXTERNAL CREAM Apply to affected area BID for up to 10 days MUPIROCIN CALCIUM 59451020001 No Longer Active Checo Conklin MD Active HYDROCODONE-ACETAMINOPHEN 5-325 MG ORAL TABLET 1 tab b y mouth every 6 hours as needed HYDROCODONE-ACETAMINOPHEN 09125021012 No Longer Active Checo Conklin MD Active IBUPROFEN 800 MG ORAL TABLET 1 tab every 8 hours with food 03/20 IBUPROFEN 76210810130 No Longer Active Checo Conklin MD Active DIFLUCAN 150 MG ORAL TABLET 1 tablet by mouth if neede d, hold until symptoms start FLUCONAZOLE 29887635669 No Longer Active Checo Conklin MD Active BACTRIM DS 800-160 MG ORAL TABLET 1 tab by mouth twice daily 201 11/23/03 TRIMETHOPRIM-SULFAMETHOXAZOLE 61579718325 No Longer Active K bernice Méndez, EARLY CHILDHOOD SERVICES COORDINATOR Active HYDROCODONE-ACETAMINOPHEN 5-325 MG ORAL TABLET 0.5 to 1 tab by mouth every 6 hours as needed HYDROCODONE-ACETAMINOPHEN 23593630677 No Longer Active Checo Conklin MD Active ONDANSETRON 8 MG ORAL TABLET DISINTEGRATING place one tablet on tongue and allow to dissolve every 6 hours as needed for vomitting ONDANSETRON 69729336128 No Longer Active Checo Conklin MD Activ e COMPRO 25 MG RECTAL SUPPOSITORY insert or apply one garza ppository rectally as directed every 12 hours as needed for nausea PROCHLORPERAZINE 45585787011 No Longer Active Checo Conklin MD A ctive SUMATRIPTAN SUCCINATE 100 MG ORAL TABLET Take one PRN for migran e SUMATRIPTAN SUCCINATE 75773016210 No Longer Active Checo Conklin MD Active TRAVEL SICKNESS 25 MG ORAL TABLET CHEWABLE chew and sw allow one tablet every 6 hours as needed MECLIZINE HCL 10288477738 No Longer A ctive Checo Conklin MD Active BUPROPION HCL ER (SR) 100 MG ORAL TABLET EXTENDED RELE ASE 12 HOUR take one tablet by mouth one time daily for one week then take 1 two times daily BUPROPION HCL 20876200574 No Longer Active Checo gallagher MD Active TERBINAFINE HCL 250 MG ORAL TABLET take one table PO one time da moises TERBINAFINE HCL 16437800457 No Longer Active Checo Conklin MD Active METOCLOPRAMIDE HCL 10 MG ORAL TABLET take one PO tid PRN nausea METOCLOPRAMIDE HCL 30957016613 No Longer Active Checo Conklin MD Active DICLOFENAC SODIUM 75 MG ORAL TABLET DELAYED RELEASE 1 tablet by mouth twice daily PRN Knee pain DICLOFENAC SODIUM 78073877552 No Longer Active Checo Conklin MD Active LAMISIL 250 MG ORAL TABLET 1 po qd TERBINAFI NE HCL 62339778568 No Longer Active Checo Conklin MD Active REGLAN 10 MG ORAL TABLET 1 po TID PRN Nausea 3 METOCLOPRAMIDE HCL 51495321103 No Longer Active Checo Conklin MD Active CELEXA 20 MG ORAL TABLET 1 tablet by mouth daily 09/26 CITALOPRAM HYDROBROMIDE 72819721448 No Longer Active Checo Conklin MD Active AZITHROMYCIN 250 MG ORAL TABLET 2 po qd x 1 day, then 1 po q d x 4 days AZITHROMYCIN 27919442441 No Longer Active Checo Ortiz MD Active HYDROCODONE-ACETAMINOPHEN 5-325 MG ORAL TABLET 1 po q 6hr PRN Pa in HYDROCODONE-ACETAMINOPHEN 99395900559 No Longer Active Lenora Conklin MD Active PHENAZOPYRIDINE HCL 200 MG ORAL TABLET take 1 tab po TID for bladder pain PHENAZOPYRIDINE HCL 25982159909 No Longer Active Joe Conklin MD Active CIPRO 500 MG ORAL TABLET 1 tablet by mouth twice daily CIPROFLOXACIN HCL 96872501132 No Longer Active Dangelo Rangel MD Active HYDROCODONE-ACETAMINOPHEN 5-325 MG ORAL TABLET 1/2 to 1 po q 4 hours prn cough HYDROCODONE-ACETAMINOPHEN 15481680370 No Longer Activ e Dangelo Rangel MD Active BACTRIM DS 800-160 MG ORAL TABLET 1 po BID x 7 days 29/04/10 SULFAMETHOXAZOLE-TRIMETHOPRIM 24787071659 No Longer Active Checo Conklin MD Active PREDNISONE 20 MG ORAL TABLET 2 tabs daily for 3 days, 1 tab daily for 3 days, 1/2 tab daily for 2 days PREDNISONE 26331092855 No Longer Active Checo Conklin MD Active TRIAMCINOLONE ACETONIDE 0.1 % EXTERNAL OINTMENT Apply to affected areas TID for up to 2 weeks TRIAMCINOLONE ACETONIDE 23220372953 No Longer Active Checo Conklin MD Active CEFDINIR 300 MG ORAL CAPSULE by mouth twice a day 2013 CEFDINIR 97871707494 No Longer Active Dangelo Rangel MD Acti ve BUPROPION HCL ER (SMOKING DET) 150 MG ORAL TABLET EXTE NDED RELEASE 12 HOUR 1 a day for 1 week then 1 twice a day BUPROPION HCL (SMOKING DETER) 48132377257 No Longer Active Checo Conklin MD Active SIMVASTATIN 20 MG ORAL TABLET 1 po qd SIMVASTAT IN 45011966563 Active Checo Conklin MD Active CHANTIX STARTING MONTH KARTHIK 0.5 MG X 11 & 1 MG X 42 ORA L TABLET 0.5mg daily for 3 days, then 0.5mg BID for 4 days, then 1mg BID VARENICLINE TARTRATE 62600781503 No Longer Active Checo Conklin MD Activ e XANAX 0.5 MG ORAL TABLET 1 po BID PRN anxiety A LPRAZOLAM 48145772899 Active Checo Conklin MD Active CONCERTA 18 MG ORAL TABLET EXTENDED RELEASE 1 po q a.m. METHYLPHENIDATE HCL 95952395732 No Longer Active Checo Conklin MD Active AMBIEN 5 MG ORAL TABLET 1 po qHS PRN Insomnia Z OLPIDEM TARTRATE 93339670243 Active Checo Conklin MD Active TRAZODONE HCL 100 MG ORAL TABLET 0.5 to 1 po qHS PRN Insomnia 20 30/07/08 TRAZODONE HCL 68157081435 No Longer Active Checo Conklin MD Active FIORICET 325-50-40 MG TAB 1 tablet by mouth four times daily as needed [id number] 79187563409 No Longer Active Checo Conklin MD Active PHENERGAN CREAM* 25mg applied to wrist q6hr PRN Nausea PHENERGAN CREAM* No Longer Active Checo Gonzales ctive FLONASE 50 MCG/ACT NASAL SUSPENSION 1 spray each nostril am and hs FLUTICASONE PROPIONATE 36609781107 No Longer Active Checo Conklin MD Active ANTIPYRINE-BENZOCAINE 5.4-1.4 % OTIC SOLUTION 1-2 drops in affec yohannes ear BENZOCAINE-ANTIPYRINE 64007380130 No Longer Active Checo Conklin MD Active CEFDINIR 300 MG ORAL CAPSULE 1 po bid CEFDINIR 87420249625 No Longer Active Checo Conklin MD Active PREDNISONE 20 MG ORAL TABLET 2 tabs daily for 3 days, 1 tab daily for 3 days, 1/2 tab daily for 2 days PREDNISONE 47396756641 No Longer Active Checo Conklin MD Active AZITHROMYCIN 250 MG ORAL TABLET 2 po qd x 1 day, then 1 po q d x 4 days AZITHROMYCIN 08172786646 No Longer Active Checo Ortiz MD Active PREDNISONE 20 MG ORAL TABLET 2 tabs daily for 3 days, 1 tab daily for 3 days, 1/2 tab daily for 2 days PREDNISONE 48803114876 No Longer Active Checo Conklin MD Active ZITHROMAX Z-KARTHIK 250 MG ORAL TABLET 2 today, then 1 daily for 4 d ays AZITHROMYCIN 59064139661 No Longer Active Paul Hamlin MD Active FOCALIN XR 10 MG ORAL CAPSULE EXTENDED RELEASE 24 HOUR 1 po q a. m. DEXMETHYLPHENIDATE HCL 93589789008 No Longer Active Paul Hamlin MD Active PERCOCET 10-325 MG ORAL TABLET 1 tablet every 6 hours as needed for pain OXYCODONE-ACETAMINOPHEN 77772594368 No Longer Active Paul Hamlin MD Active LORTAB 5-500 MG ORAL TABLET 1/2 to 1 tablet by mouth e very 4 hours as needed for pain HYDROCODONE-ACETAMINOPHEN 88819689017 No Longer Active Checo Conklin MD Active FOCALIN XR 15 MG ORAL CAPSULE EXTENDED RELEASE 24 HOUR 1 po q a. m. DEXMETHYLPHENIDATE HCL 96885204493 No Longer Active Checo Conklin MD Active ZOFRAN ODT 4 MG ORAL TABLET DISINTEGRATING 1 po q6hr PRN Nausea ONDANSETRON 30375352346 No Longer Active Checo Conklin MD Active PERCOCET 5-325 MG ORAL TABLET 1 tablet by mouth every 6 hour s as needed OXYCODONE-ACETAMINOPHEN 35791766917 No Longer Active Checo Conklin MD Active PYRIDIUM 200 MG ORAL TABLET take 1 tab po TID prn urinary pain. PHENAZOPYRIDINE HCL 48430655718 No Longer Active Checo Joshua Active FLUCONAZOLE 150 MG ORAL TABLET take 1 tab po qday once FLUCONAZOLE 19816310501 No Longer Active Dangelo Rangel MD Acti ve CIPRO 500 MG ORAL TABLET 1 tablet by mouth twice daily CIPROFLOXACIN HCL 93902468095 No Longer Active Dangelo Rangel MD Active PYRIDIUM 200 MG ORAL TABLET take 1 tab po TID prn urinary pain. PYRIDIUM 200 MG ORAL TABLET 7370196 PHENAZOPYRIDINE HCL Inactive PERCOCET 5-325 MG ORAL TABLET 1 tablet by mouth every 6 hour s as needed PERCOCET 5-325 MG ORAL TABLET 4749971 OXYCODONE-ACETAMINOPHEN Inactive ZOFRAN ODT 4 MG ORAL TABLET DISINTEGRATING 1 po q6hr PRN Nausea ZOFRAN ODT 4 MG ORAL TABLET DISINTEGRATING 790332 ONDAN SETRON Inactive FOCALIN XR 15 MG [...] for pain PERCOCET 10-325 MG ORAL TABLET 2503714 OXYCODONE-ACETAMI NOPHEN Inactive FOCALIN XR 10 MG ORAL CAPSULE EXTENDED RELEASE 24 HOUR 1 po q a. m. FOCALIN XR 10 MG ORAL CAPSULE EXTENDED RELEASE 24 HOUR DEXMETHYLPHENIDATE HCL Inactive CEFDINIR 300 MG ORAL CAPSULE 1 po bid CEFDINI R 300 MG ORAL CAPSULE 030892 CEFDINIR Inactive ANTIPYRINE-BENZOCAINE 5.4-1.4 % OTIC SOLUTION 1-2 drops in affec yohannes ear ANTIPYRINE-BENZOCAINE 5.4-1.4 % OTIC SOLUTION BENZOCAINE-ANTIPYRINE Inactive FLONASE 50 MCG/ACT NASAL SUSPENSION 1 spray each nostril am and hs FLONASE 50 MCG/ACT NASAL SUSPENSION 6013517 FLUTICASONE PROPIONATE I nactive PHENERGAN CREAM* 25mg applied to wrist q6hr PRN Nausea PHENERGAN CREAM* Inactive FIORICET 325-50-40 MG TAB 1 tablet by mouth four times daily as needed FIORICET 325-50-40 MG TAB ACETAMINOPHEN-C AFF-BUTALBITAL Inactive TRAZODONE HCL 100 MG ORAL TABLET 0.5 to 1 po qHS PRN Insomnia 20 30/07/08 TRAZODONE HCL 100 MG ORAL TABLET 213970 TRAZODONE HCL Inactive CONCERTA 18 MG ORAL [...] cough HYDROCODONE-ACETAMINOPHEN 5-325 MG ORAL TABLET 8 02678 HYDROCODONE-ACETAMINOPHEN Inactive PHENAZOPYRIDINE HCL 200 MG ORAL TABLET take 1 tab po TID for bladder pain PHENAZOPYRIDINE HCL 200 MG ORAL TABLET 6742661 PHENAZOPYRIDINE HCL Inactive HYDROCODONE-ACETAMINOPHEN 5-325 MG ORAL TABLET 1 po q 6hr PRN Pa in HYDROCODONE-ACETAMINOPHEN 5-325 MG ORAL TABLET 638276 HYDROCODONE-ACETAMINOPHEN Inactive CELEXA 20 MG ORAL TABLET 1 tablet by mouth daily 09/26 CELEXA 20 MG ORAL TABLET 462613 CITALOPRAM HYDROBROMIDE Inactive REGLAN 10 MG ORAL TABLET 1 po TID PRN Nausea 3 REGLAN 10 MG ORAL TABLET 259771 METOCLOPRAMIDE HCL Inactive LAMISIL 250 MG ORAL TABLET 1 po qd L AMISIL 250 MG ORAL TABLET 934320 TERBINAFINE HCL Inactive DICLOFENAC SODIUM 75 MG ORAL TABLET DELAYED RELEASE 1 tablet by mouth twice daily PRN Knee pain DICLOFENAC SODIUM 75 MG ORAL TABLET DELAYED RELEASE 232622 DICLOFENAC SODIUM Inactive METOCLOPRAMIDE HCL 10 MG ORAL TABLET take one PO tid PRN nausea METOCLOPRAMIDE HCL 10 MG ORAL TABLET 770448 METOCLOPRAM ZACH HCL Inactive TERBINAFINE HCL 250 MG ORAL TABLET take one table PO one time da moises TERBINAFINE HCL 250 MG ORAL TABLET 182584 TERBINAFINE H CL Inactive BUPROPION HCL ER [...] SICKNESS 25 M G ORAL TABLET CHEWABLE 412801 MECLIZINE HCL Inactive SUMATRIPTAN SUCCINATE 100 MG ORAL TABLET Take one PRN for migran e SUMATRIPTAN SUCCINATE 100 MG ORAL TABLET 027161 SUMATRIPTAN SUCCINATE Inactive COMPRO 25 MG RECTAL SUPPOSITORY insert or apply one garza ppository rectally as directed every 12 hours as needed for nausea COMPRO 25 MG RECTAL SUPPOSITORY 969077 PROCHLORPERAZINE Inactive ONDANSETRON 8 MG ORAL TABLET DISINTEGRATING place one tablet on tongue and allow to dissolve every 6 hours as needed for vomitting ONDANSETRON 8 MG ORAL TABLET DISINTEGRATING 754890 ONDANSETRON Inactive HYDROCODONE-ACETAMINOPHEN 5-325 MG ORAL TABLET 0.5 to 1 tab by mouth every 6 hours as needed HYDROCODONE-ACETAMIN OPHEN 5-325 MG ORAL TABLET 515078 HYDROCODONE-ACETAMINOPHEN Inactive BACTRIM DS 800-160 MG ORAL TABLET 1 tab by mouth twice daily 201 11/23/03 BACTRIM DS 800-160 MG ORAL TABLET 19820918 TRIMETHOPRIM-SULFAMETHOXAZOLE Inactive DIFLUCAN 150 MG ORAL TABLET 1 tablet by mouth if neede d, hold until symptoms start DIFLUCAN 150 MG ORAL TABLET 825006 FLUCONAZ OLE Inactive IBUPROFEN 800 MG ORAL TABLET 1 tab every 8 hours with food 03/20 IBUPROFEN 800 MG ORAL TABLET 394379 IBUPROFEN [place] ctive HYDROCODONE-ACETAMINOPHEN 5-325 MG ORAL TABLET 1 tab b y mouth every 6 hours as needed HYDROCODONE-ACETAMINOPHEN 5-325 MG ORAL TABLET 079650 HYDROCODONE-ACETAMINOPHEN Inactive BACTROBAN 2 % EXTERNAL CREAM Apply to affected area BID for up to 10 days BACTROBAN 2 % EXTERNAL CREAM 120714 MUPIROCIN CA LCIUM Inactive MAGNESIUM CITRATE 1.745 GM/30ML ORAL SOLUTION 150ml po BID P RN Constipation MAGNESIUM CITRATE 1.745 GM/30ML ORAL SOLUTION 10 29460 MAGNESIUM CITRATE Inactive DIFLUCAN 150 MG ORAL TABLET 1 tablet by mouth qod 2015 DIFLUCAN 150 MG ORAL TABLET 528482 FLUCONAZOLE Inactive BACTRIM DS 800-160 MG ORAL TABLET 1 tab by mouth twice daily 201 12/19/26 BACTRIM DS 800-160 MG ORAL TABLET 945839 TRIMETHOPRIM-SULFAMETHOXAZOLE Inactive CLARITIN 10 MG ORAL TABLET 1 tablet by mouth daily as needed for allergies CLARITIN 10 MG ORAL TABLET 982222 LORATADINE I nactive FLUTICASONE PROPIONATE 50 MCG/ACT NASAL SUSPENSION 2 s prays/nostril qd PRN Congestion/Allergies FLUTICASONE PROPION ATE 50 MCG/ACT NASAL SUSPENSION 2151199 FLUTICASONE PROPIONATE Inactive MIRALAX ORAL POWDER 8.5 to 17g po qd PRN Constipation MIRALAX ORAL POWDER 169886 POLYETHYLENE GLYCOL 3350 Inactive CIPRO 500 MG ORAL TABLET 1 tablet by mouth twice daily CIPRO 500 MG ORAL TABLET 631569 CIPROFLOXACIN HCL Inactive FLUCONAZOLE 150 MG ORAL TABLET take 1 tab po qday once FLUCONAZOLE 150 MG ORAL TABLET 258002 FLUCONAZOLE Inactive ZITHROMAX Z-KARTHIK 250 MG ORAL TABLET 2 today, then 1 daily for 4 d ays ZITHROMAX Z-KARTHIK 250 MG ORAL TABLET 867674 AZITHROMYCIN Inactive PREDNISONE 20 MG ORAL TABLET 2 tabs daily for 3 days, 1 tab daily for 3 days, 1/2 tab daily for 2 days PREDNISONE 20 MG ORAL T ABLET 829941 PREDNISONE Inactive AZITHROMYCIN 250 MG ORAL TABLET 2 po qd x 1 day, then 1 po q d x 4 days AZITHROMYCIN 250 MG ORAL TABLET 498625 AZITHROMY SPARKLE Inactive PREDNISONE 20 MG ORAL TABLET 2 tabs daily for 3 days, 1 tab daily for 3 days, 1/2 tab daily for 2 days PREDNISONE 20 MG ORAL TABLET 534005 PREDNISONE Inactive CEFDINIR 300 MG ORAL CAPSULE by mouth twice a day 2013 CEFDINIR 300 MG ORAL CAPSULE 706335 CEFDINIR Inactive TRIAMCINOLONE ACETONIDE 0.1 % EXTERNAL OINTMENT Apply to affected areas TID for up to 2 weeks TRIAMCINOLONE ACETON ZACH 0.1 % EXTERNAL OINTMENT 5781045 TRIAMCINOLONE ACETONIDE Inactive PREDNISONE 20 MG ORAL TABLET 2 tabs daily for 3 days, 1 tab daily for 3 days, 1/2 tab daily for 2 days PREDNISONE 20 MG ORAL T ABLET 461499 PREDNISONE Inactive BACTRIM DS 800-160 MG ORAL TABLET 1 po BID x 7 days 29/04/10 BACTRIM DS 800-160 MG ORAL TABLET 284869 SULFAMETHOXAZOLE-TRIMETHOP RIM Inactive CIPRO 500 MG ORAL TABLET 1 tablet by mouth twice daily CIPRO 500 MG ORAL TABLET 819182 CIPROFLOXACIN HCL Inactive AZITHROMYCIN 250 MG ORAL TABLET 2 po qd x 1 day, then 1 po q d x 4 days AZITHROMYCIN 250 MG ORAL TABLET 448937 AZITHROMY SPARKLE Inactive FLAGYL 500 MG ORAL TABLET 1 tablet by mouth bid 04/13 FLAGYL 500 MG ORAL TABLET 745590 METRONIDAZOLE Inactive AZITHROMYCIN 250 MG ORAL TABLET 2 po qd x 1 day, then 1 po q d x 4 days AZITHROMYCIN 250 MG ORAL TABLET 856593 AZITHROMY SPARKLE Inactive AMOXICILLIN 500 MG ORAL CAPSULE 2 po BID x 10 days 201 01/15/27 AMOXICILLIN 500 MG ORAL CAPSULE 426209 AMOXICILLIN Inactive AMOXICILLIN 500 MG ORAL CAPSULE 2 po BID x 14 days for H. Pylori AMOXICILLIN 500 MG ORAL CAPSULE 324433 AMOXICILLIN Inactive CLARITHROMYCIN 500 MG ORAL TABLET 1 tab po BID x 14 days CLARITHROMYCIN 500 MG ORAL TABLET 904187 CLARITHROMYCIN Inacti ve FLAGYL 500 MG ORAL TABLET 1 tablet by mouth bid 08/29 FLAGYL 500 MG ORAL TABLET 312240 METRONIDAZOLE Inactive PROTONIX 40 MG ORAL TABLET DELAYED RELEASE 1 pill by m outh daily, for acid reflux PROTONIX 40 MG ORAL TABLET DELAYED RELEAS E 427802 PANTOPRAZOLE SODIUM Inactive Immunizations Vaccine Administration Date [...] 11 .6-14.8 platelet count 215 10^3/MM^3 10*3/mm3 964-315 5362/11/28 erythrocyte (RBC) count 4.17 10^6/MM^3 10*6/mm3 3.80-5.8 0 lymphocytes as percent of blood leukocytes 23.9 % 20.5-51.1 monocytes as percent of blood leukocytes 7.3 % 1.7-9.3 neutrophils as percent of blood leukocytes 66.5 % 42.2-75.2 leukocyte count, blood 7.6 10^3/MM^3 10*3/mm3 4.6-10.2 Lab Report: Comp. Metabolic Panel, Eryth rocyte Sed Rate, UADIP W/MICRO, ... - Chemistry sodium, serum 139 mmol/L 237-800 3208/11/28 creatinine, serum 0.62 mg/dL 0.60-1.30 alanine aminotransferase [...] 5.0-8.5 Encounters Code Encounter Date Provider Facility CPT-52122 [id number] Vst-Est Level III 09:37:41 CDT Dangelo Rangel MD [facility] CPT-55547 Level 4 Est. Patient 08:57:51 TOY ASSEMBLY SUPERVISOR Checo Conklin MD [facility] CPT-70511 Level 3 Est. Patient 11:24:55 TOY ASSEMBLY SUPERVISOR Efren almendarez [facility] CPT-44588 Level 3 Est. Patient 13:05:44 CDT Paul Hamlin MD [facility] CPT-33573 Level 3 Est. Patient 11:29:55 CDT Checo Conklin MD [facility] CPT-00463 Level 4 Est. Patient 11:08:12 TOY ASSEMBLY SUPERVISOR Checo Conklin MD [facility] CPT-63916 Level 4 Est. Patient 16:06:48 TOY ASSEMBLY SUPERVISOR Checo Conklin MD [facility] CPT-04855 Level 3 Est. Patient 09:11:49 CDT Efren almendarez [facility] CPT-02084 Level 2 Est. Patient 19:53:27 CDT Tanner hill MD [facility] CPT-35921 Level 3 Est. Patient 09:15:34 CDT Efren almendarez [facility] CPT-47884 Level 3 Est. Patient 11:28:51 TOY ASSEMBLY SUPERVISOR Efren almendarez [facility] CPT-36751 Level 4 Est. Patient 13:55:46 TOY ASSEMBLY SUPERVISOR Checo Conklin MD [facility] CPT-41606 Level 4 Est. Patient 17:10:53 CDT Checo Conklin MD [facility] CPT-50580 Level 3 Est. Patient 15:56:22 CDT Chceo Conklin MD [facility] CPT-19265 Level 3 Est. Patient 15:29:07 CDT Checo Conklin MD [facility] CPT-39250 Level 3 Est. Patient 14:38:41 CDT Checo Conklin MD [facility] CPT-43997 Level 3 Est. Patient 15:22:03 TOY ASSEMBLY SUPERVISOR Thomas reynolds DO [facility] CPT-26084 Level 3 Est. Patient 13:34:17 TOY ASSEMBLY SUPERVISOR Checo Conklin MD [facility] CPT-84824 Level 3 Est. Patient 12:29:32 CDT Dangelo arroyo MD [facility] CPT-09726 Level 3 Est. Patient 16:53:02 CDT Checo Conklin MD [facility] CPT-02232 Level 3 Est. Patient 16:37:13 CDT Checo Conklin MD [facility] CPT-04590 Level 3 Est. Patient 16:16:59 CDT Paul Hamlin MD [facility] CPT-21969 Level 3 Est. Patient 14:20:13 CDT Dangelo arroyo MD [facility] CPT-82255 Level 4 Est. Patient 11:29:33 CDT Checo Conklin MD [facility] CPT-22400 Level 3 Est. Patient 17:08:31 CDT Checo Conklin MD [facility] CPT-09172 Level 3 Est. Patient 16:50:42 TOY ASSEMBLY SUPERVISOR Checo Conklin MD [facility] CPT-44100 Level 4 Est. Patient 09:26:08 TOY ASSEMBLY SUPERVISOR Checo Conklin MD [facility] CPT-46321 Level 3 Est. Patient 11:37:10 CDT Checo Conklin MD [facility] CPT-80314 Level 4 Est. Patient 14:07:38 CDT Checo Conklin MD [facility] CPT-33578 Level 3 Est. Patient 09:54:41 CDT Checo Conklin MD [facility] CPT-46179 Level 3 Est. Patient 11:10:54 CDT Paul Hamlin MD [facility] CPT-01383 Level 3 Est. Patient 14:16:56 TOY ASSEMBLY SUPERVISOR Checo Conklin MD [facility] CPT-10980 Level 3 Est. Patient 11:04:11 TOY ASSEMBLY SUPERVISOR Checo Conklin MD [facility] CPT-62901 Level 3 Est. Patient 17:09:26 CDT Dangelo arroyo MD [facility] CPT-16199 Level 3 Est. Patient 16:54:37 CDT Checo Conklin MD [facility] Procedures Code Procedure Name Date Entry Date Standard Desc ription CPT-95178 Wrist, right, comp 3V - XRAY USE ONLY 09:24:31 CDT CPT-55440 Abd compl w upright - XRAY USE ONLY 1 1:36:54 TOY ASSEMBLY SUPERVISOR CPT-43344 UA w micro - LAB USE ONLY 17:06:46 CDT 2015 CPT-08974 [facility] Qual - LAB USE ONLY 17:06:46 CDT 05/06 CPT-48876 CMP - LAB USE ONLY 17:06:46 CDT CPT-73189 CBC with Diff - LAB USE ONLY 17:06:45 CDT 2 CPT-15703 Venipuncture Draw Fee 17:06:45 CDT CPT-LR Lesion Removal 19:53:27 CDT CPT-OV Office Visit 11:31:28 CDT CPT-60978 Tubersol 09:39:29 CDT CPT-J2550 Phenergan 25 mg (Promethazine) 13:59:02 TOY ASSEMBLY SUPERVISOR CPT-J1885 Toradol 60 mg (Ketorolac) 13:59:02 TOY ASSEMBLY SUPERVISOR 2012
--- OUTSIDE RECORDS SUMMARY | 2019-09-29 01:55 | XMS REPORT | Clinical Summary ---
Author Author Admin, Bethany Ayala [facility] Address Unknown Phone Unavailable Allergies, Adverse [...] TABLET 1.5 po qd PAR OXETINE HCL [id number] Active Checo Conklin MD Active FLUTICASONE PROPIONATE 50 MCG/ACT NASAL SUSPENSION 2 s prays/nostril qd PRN Congestion/Allergies FLUTICASONE PROPIONATE 4812525245 9 No Longer Active Checo Conklin MD Active AMOXICILLIN 500 MG ORAL CAPSULE 2 po BID x 10 days 201 01/15/27 AMOXICILLIN 66643639329 No Longer Active Checo Conklin MD Activ e MIRALAX ORAL POWDER 8.5 to 17g po qd PRN Constipation POLYETHYLENE GLYCOL 3350 51900855259 Active Checo Conklin MD Active CLARITIN 10 MG ORAL TABLET 1 tablet by mouth daily as needed for allergies LORATADINE 72990748229 No Longer Active Checo Ortiz MD Active BACTRIM DS 800-160 MG ORAL TABLET 1 tab by mouth twice daily 201 12/19/26 TRIMETHOPRIM-SULFAMETHOXAZOLE 71423769864 No Longer Active Ragini Carrillo MD Active DIFLUCAN 150 MG ORAL TABLET 1 tablet by mouth qod 2015 FLUCONAZOLE 22797629613 No Longer Active 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 DEXMETHYLPHENIDATE HCL 87769582335 Active Checo Conklin MD Active MAGNESIUM CITRATE 1.745 GM/30ML ORAL SOLUTION 150ml po BID P RN Constipation MAGNESIUM CITRATE 29933218558 No Longer Active Checo Conklin MD Active BACTROBAN 2 % EXTERNAL CREAM Apply to affected area BID for up to 10 days MUPIROCIN CALCIUM 77485960548 No Longer Active Checo Conklin MD Active HYDROCODONE-ACETAMINOPHEN 5-325 MG ORAL TABLET 1 tab b y mouth every 6 hours as needed HYDROCODONE-ACETAMINOPHEN 66067271257 No Longer Active Checo Conklin MD Active IBUPROFEN 800 MG ORAL TABLET 1 tab every 8 hours with food 03/20 IBUPROFEN 88314914490 No Longer Active Checo Conklin MD Active DIFLUCAN 150 MG ORAL TABLET 1 tablet by mouth if neede d, hold until symptoms start FLUCONAZOLE 88453490991 No Longer Active Checo Conklin MD Active BACTRIM DS 800-160 MG ORAL TABLET 1 tab by mouth twice daily 201 11/23/03 TRIMETHOPRIM-SULFAMETHOXAZOLE 12890258296 No Longer Active K bernice Méndez LPN Active HYDROCODONE-ACETAMINOPHEN 5-325 MG ORAL TABLET 0.5 to 1 tab by mouth every 6 hours as needed HYDROCODONE-ACETAMINOPHEN 31708248877 No Longer Active Checo Conklin MD Active ONDANSETRON 8 MG ORAL TABLET DISINTEGRATING place one tablet on tongue and allow to dissolve every 6 hours as needed for vomitting ONDANSETRON 75378439430 No Longer Active Checo Conklin MD Activ e COMPRO 25 MG RECTAL SUPPOSITORY insert or apply one garza ppository rectally as directed every 12 hours as needed for nausea PROCHLORPERAZINE 38170431484 No Longer Active Checo Conklin MD A ctive SUMATRIPTAN SUCCINATE 100 MG ORAL TABLET Take one PRN for migran e SUMATRIPTAN SUCCINATE 23154462013 No Longer Active Checo Conklin MD Active TRAVEL SICKNESS 25 MG ORAL TABLET CHEWABLE chew and sw allow one tablet every 6 hours as needed MECLIZINE HCL 35878120925 No Longer A ctive Checo Conklin MD Active BUPROPION HCL ER (SR) 100 MG ORAL TABLET EXTENDED RELE ASE 12 HOUR take one tablet by mouth one time daily for one week then take 1 two times daily BUPROPION HCL 01109076892 No Longer Active Checo gallagher MD Active TERBINAFINE HCL 250 MG ORAL TABLET take one table PO one time da moises TERBINAFINE HCL 72683713018 No Longer Active Checo Conklin MD Active METOCLOPRAMIDE HCL 10 MG ORAL TABLET take one PO tid PRN nausea METOCLOPRAMIDE HCL 92986851488 No Longer Active Checo Conklin MD Active DICLOFENAC SODIUM 75 MG ORAL TABLET DELAYED RELEASE 1 tablet by mouth twice daily PRN Knee pain DICLOFENAC SODIUM 72318405398 No Longer Active Checo Conklin MD Active LAMISIL 250 MG ORAL TABLET 1 po qd TERBINAFI NE HCL 35988016207 No Longer Active Checo Conklin MD Active REGLAN 10 MG ORAL TABLET 1 po TID PRN Nausea 3 METOCLOPRAMIDE HCL 92836851094 No Longer Active Checo Conklin MD Active CELEXA 20 MG ORAL TABLET 1 tablet by mouth daily 09/26 CITALOPRAM HYDROBROMIDE 78073692145 No Longer Active Checo Conklin MD Active AZITHROMYCIN 250 MG ORAL TABLET 2 po qd x 1 day, then 1 po q d x 4 days AZITHROMYCIN 52812569948 No Longer Active Checo Ortiz MD Active HYDROCODONE-ACETAMINOPHEN 5-325 MG ORAL TABLET 1 po q 6hr PRN Pa in HYDROCODONE-ACETAMINOPHEN 45486785561 No Longer Active Lenora Conklin MD Active PHENAZOPYRIDINE HCL 200 MG ORAL TABLET take 1 tab po TID for bladder pain PHENAZOPYRIDINE HCL 66637955676 No Longer Active Joe Conklin MD Active CIPRO 500 MG ORAL TABLET 1 tablet by mouth twice daily CIPROFLOXACIN HCL 50030230586 No Longer Active Dangelo Rangel MD Active HYDROCODONE-ACETAMINOPHEN 5-325 MG ORAL TABLET 1/2 to 1 po q 4 hours prn cough HYDROCODONE-ACETAMINOPHEN 32278750852 No Longer Activ e Dangelo Rangel MD Active BACTRIM DS 800-160 MG ORAL TABLET 1 po BID x 7 days 29/04/10 SULFAMETHOXAZOLE-TRIMETHOPRIM 18097547760 No Longer Active Checo Conklin MD Active PREDNISONE 20 MG ORAL TABLET 2 tabs daily for 3 days, 1 tab daily for 3 days, 1/2 tab daily for 2 days PREDNISONE 91852657878 No Longer Active Checo Conklin MD Active TRIAMCINOLONE ACETONIDE 0.1 % EXTERNAL OINTMENT Apply to affected areas TID for up to 2 weeks TRIAMCINOLONE ACETONIDE 08927678921 No Longer Active Checo Conklin MD Active CEFDINIR 300 MG ORAL CAPSULE by mouth twice a day 2013 CEFDINIR 65780163252 No Longer Active Dangelo Rangel MD Acti ve BUPROPION HCL ER (SMOKING DET) 150 MG ORAL TABLET EXTE NDED RELEASE 12 HOUR 1 a day for 1 week then 1 twice a day BUPROPION HCL (SMOKING DETER) 18829902616 No Longer Active Checo Conklin MD Active SIMVASTATIN 20 MG ORAL TABLET 1 po qd SIMVASTAT IN 81234773869 Active Checo Conklin MD Active CHANTIX STARTING MONTH KARTHIK 0.5 MG X 11 & 1 MG X 42 ORA L TABLET 0.5mg daily for 3 days, then 0.5mg BID for 4 days, then 1mg BID VARENICLINE TARTRATE 80025225301 No Longer Active Checo Conklin MD Activ e XANAX 0.5 MG ORAL TABLET 1 po BID PRN anxiety A LPRAZOLAM 28486948627 Active Checo Conklin MD Active CONCERTA 18 MG ORAL TABLET EXTENDED RELEASE 1 po q a.m. METHYLPHENIDATE HCL 03668688224 No Longer Active Checo Conklin MD Active AMBIEN 5 MG ORAL TABLET 1 po qHS PRN Insomnia Z OLPIDEM TARTRATE 75939659642 Active Checo Conklin MD Active TRAZODONE HCL 100 MG ORAL TABLET 0.5 to 1 po qHS PRN Insomnia 20 30/07/08 TRAZODONE HCL 02509323686 No Longer Active Checo Conklin MD Active FIORICET 325-50-40 MG TAB 1 tablet by mouth four times daily as needed [id number] 39304268595 No Longer Active Checo Conklin MD Active PHENERGAN CREAM* 25mg applied to wrist q6hr PRN Nausea PHENERGAN CREAM* No Longer Active Checo Gonzales ctive FLONASE 50 MCG/ACT NASAL SUSPENSION 1 spray each nostril am and hs FLUTICASONE PROPIONATE 41862035828 No Longer Active Checo Conklin MD Active ANTIPYRINE-BENZOCAINE 5.4-1.4 % OTIC SOLUTION 1-2 drops in affec yohannes ear BENZOCAINE-ANTIPYRINE 37447087890 No Longer Active Checo Conklin MD Active CEFDINIR 300 MG ORAL CAPSULE 1 po bid CEFDINIR 38933386743 No Longer Active Checo Conklin MD Active PREDNISONE 20 MG ORAL TABLET 2 tabs daily for 3 days, 1 tab daily for 3 days, 1/2 tab daily for 2 days PREDNISONE 29215558298 No Longer Active Checo Conklin MD Active AZITHROMYCIN 250 MG ORAL TABLET 2 po qd x 1 day, then 1 po q d x 4 days AZITHROMYCIN 80915855670 No Longer Active Checo Ortiz MD Active PREDNISONE 20 MG ORAL TABLET 2 tabs daily for 3 days, 1 tab daily for 3 days, 1/2 tab daily for 2 days PREDNISONE 59407735297 No Longer Active Checo Conklin MD Active ZITHROMAX Z-KARTHIK 250 MG ORAL TABLET 2 today, then 1 daily for 4 d ays AZITHROMYCIN 63555315330 No Longer Active Paul Hamlin MD Active FOCALIN XR 10 MG ORAL CAPSULE EXTENDED RELEASE 24 HOUR 1 po q a. m. DEXMETHYLPHENIDATE HCL 66647961266 No Longer Active Paul Hamlin MD Active PERCOCET 10-325 MG ORAL TABLET 1 tablet every 6 hours as needed for pain OXYCODONE-ACETAMINOPHEN 01155478040 No Longer Active Paul Hamlin MD Active LORTAB 5-500 MG ORAL TABLET 1/2 to 1 tablet by mouth e very 4 hours as needed for pain HYDROCODONE-ACETAMINOPHEN 53547370501 No Longer Active Checo Conklin MD Active FOCALIN XR 15 MG ORAL CAPSULE EXTENDED RELEASE 24 HOUR 1 po q a. m. DEXMETHYLPHENIDATE HCL 75085297362 No Longer Active Checo Conklin MD Active ZOFRAN ODT 4 MG ORAL TABLET DISINTEGRATING 1 po q6hr PRN Nausea ONDANSETRON 62714542432 No Longer Active Checo Conklin MD Active PERCOCET 5-325 MG ORAL TABLET 1 tablet by mouth every 6 hour s as needed OXYCODONE-ACETAMINOPHEN 28278373117 No Longer Active Checo Conklin MD Active PYRIDIUM 200 MG ORAL TABLET take 1 tab po TID prn urinary pain. PHENAZOPYRIDINE HCL 90404010307 No Longer Active Checo Joshua Active FLUCONAZOLE 150 MG ORAL TABLET take 1 tab po qday once FLUCONAZOLE 80304241270 No Longer Active Dangelo Rangel MD Acti ve CIPRO 500 MG ORAL TABLET 1 tablet by mouth twice daily CIPROFLOXACIN HCL 78865319901 No Longer Active Dangelo Rangel MD Active PYRIDIUM 200 MG ORAL TABLET take 1 tab po TID prn urinary pain. PYRIDIUM 200 MG ORAL TABLET 9631077 PHENAZOPYRIDINE HCL Inactive PERCOCET 5-325 MG ORAL TABLET 1 tablet by mouth every 6 hour s as needed PERCOCET 5-325 MG ORAL TABLET 7164674 OXYCODONE-ACETAMINOPHEN Inactive ZOFRAN ODT 4 MG ORAL TABLET DISINTEGRATING 1 po q6hr PRN Nausea ZOFRAN ODT 4 MG ORAL TABLET DISINTEGRATING 538037 ONDAN SETRON Inactive FOCALIN XR 15 MG ORAL CAPSULE EXTENDED RELEASE 24 HOUR 1 po q a. m. FOCALIN XR 15 MG ORAL CAPSULE EXTENDED RELEASE 24 HOUR DEXMETHYLPHENIDATE HCL Inactive LORTAB 5-500 MG ORAL TABLET 1/2 to 1 tablet by mouth e very 4 hours as needed for pain LORTAB 5-500 MG ORAL TABLET 832246 HYDROCODONE-ACETAMINOPHEN Inactive PERCOCET 10-325 MG ORAL TABLET 1 tablet every 6 hours as needed for pain PERCOCET 10-325 MG ORAL TABLET 1711881 OXYCODONE-ACETAMI NOPHEN Inactive FOCALIN XR 10 MG ORAL CAPSULE EXTENDED RELEASE 24 HOUR 1 po q a. m. FOCALIN XR 10 MG ORAL CAPSULE EXTENDED RELEASE 24 HOUR DEXMETHYLPHENIDATE HCL Inactive CEFDINIR 300 MG ORAL CAPSULE 1 po bid CEFDINI R 300 MG ORAL CAPSULE 448128 CEFDINIR Inactive ANTIPYRINE-BENZOCAINE 5.4-1.4 % OTIC SOLUTION 1-2 drops in affec yohannes ear ANTIPYRINE-BENZOCAINE 5.4-1.4 % OTIC SOLUTION 723798 BENZOCAINE-ANTIPYRINE Inactive FLONASE 50 MCG/ACT NASAL SUSPENSION 1 spray each nostril am and hs FLONASE 50 MCG/ACT NASAL SUSPENSION 0496609 FLUTICASONE PROPIONATE I nactive PHENERGAN CREAM* 25mg applied to wrist q6hr PRN Nausea PHENERGAN CREAM* Inactive FIORICET 325-50-40 MG TAB 1 tablet by mouth four times daily as needed FIORICET 325-50-40 MG TAB ACETAMINOPHEN-C AFF-BUTALBITAL Inactive TRAZODONE HCL 100 MG ORAL TABLET 0.5 to 1 po qHS PRN Insomnia 20 30/07/08 TRAZODONE HCL 100 MG ORAL TABLET 144227 TRAZODONE HCL Inactive CONCERTA 18 MG ORAL [...] cough HYDROCODONE-ACETAMINOPHEN 5-325 MG ORAL TABLET 8 94337 HYDROCODONE-ACETAMINOPHEN Inactive PHENAZOPYRIDINE HCL 200 MG ORAL TABLET take 1 tab po TID for bladder pain PHENAZOPYRIDINE HCL 200 MG ORAL TABLET 8505152 PHENAZOPYRIDINE HCL Inactive HYDROCODONE-ACETAMINOPHEN 5-325 MG ORAL TABLET 1 po q 6hr PRN Pa in HYDROCODONE-ACETAMINOPHEN 5-325 MG ORAL TABLET 125463 HYDROCODONE-ACETAMINOPHEN Inactive CELEXA 20 MG ORAL TABLET 1 tablet by mouth daily 09/26 CELEXA 20 MG ORAL TABLET 056925 CITALOPRAM HYDROBROMIDE Inactive REGLAN 10 MG ORAL TABLET 1 po TID PRN Nausea 3 REGLAN 10 MG ORAL TABLET 988722 METOCLOPRAMIDE HCL Inactive LAMISIL 250 MG ORAL TABLET 1 po qd L AMISIL 250 MG ORAL TABLET 125627 TERBINAFINE HCL Inactive DICLOFENAC SODIUM 75 MG ORAL TABLET DELAYED RELEASE 1 tablet by mouth twice daily PRN Knee pain DICLOFENAC SODIUM 75 MG ORAL TABLET DELAYED RELEASE 030663 DICLOFENAC SODIUM Inactive METOCLOPRAMIDE HCL 10 MG ORAL TABLET take one PO tid PRN nausea METOCLOPRAMIDE HCL 10 MG ORAL TABLET 095217 METOCLOPRAM ZACH HCL Inactive TERBINAFINE HCL 250 MG ORAL TABLET take one table PO one time da moises TERBINAFINE HCL 250 MG ORAL TABLET 232055 TERBINAFINE H CL Inactive BUPROPION HCL ER [...] SICKNESS 25 M G ORAL TABLET CHEWABLE 932570 MECLIZINE HCL Inactive SUMATRIPTAN SUCCINATE 100 MG ORAL TABLET Take one PRN for migran e SUMATRIPTAN SUCCINATE 100 MG ORAL TABLET 604855 SUMATRIPTAN SUCCINATE Inactive COMPRO 25 MG RECTAL SUPPOSITORY insert or apply one garza ppository rectally as directed every 12 hours as needed for nausea COMPRO 25 MG RECTAL SUPPOSITORY 385623 PROCHLORPERAZINE Inactive ONDANSETRON 8 MG ORAL TABLET DISINTEGRATING place one tablet on tongue and allow to dissolve every 6 hours as needed for vomitting ONDANSETRON 8 MG ORAL TABLET DISINTEGRATING 516535 ONDANSETRON Inactive HYDROCODONE-ACETAMINOPHEN 5-325 MG ORAL TABLET 0.5 to 1 tab by mouth every 6 hours as needed HYDROCODONE-ACETAMIN OPHEN 5-325 MG ORAL TABLET 232366 HYDROCODONE-ACETAMINOPHEN Inactive BACTRIM DS 800-160 MG ORAL TABLET 1 tab by mouth twice daily 201 11/23/03 BACTRIM DS 800-160 MG ORAL TABLET 325550 TRIMETHOPRIM-SULFAMETHOXAZOLE Inactive DIFLUCAN 150 MG ORAL TABLET 1 tablet by mouth if neede d, hold until symptoms start DIFLUCAN 150 MG ORAL TABLET 026025 FLUCONAZ OLE Inactive IBUPROFEN 800 MG ORAL TABLET 1 tab every 8 hours with food 03/20 IBUPROFEN 800 MG ORAL TABLET 135315 IBUPROFEN Krupa ctive HYDROCODONE-ACETAMINOPHEN 5-325 MG ORAL TABLET 1 tab b y mouth every 6 hours as needed HYDROCODONE-ACETAMINOPHEN 5-325 MG ORAL TABLET 370567 HYDROCODONE-ACETAMINOPHEN Inactive BACTROBAN 2 % EXTERNAL CREAM Apply to affected area BID for up to 10 days BACTROBAN 2 % EXTERNAL CREAM 319966 MUPIROCIN CA LCIUM Inactive MAGNESIUM CITRATE 1.745 GM/30ML ORAL SOLUTION 150ml po BID P RN Constipation MAGNESIUM CITRATE 1.745 GM/30ML ORAL SOLUTION 10 64533 MAGNESIUM CITRATE Inactive DIFLUCAN 150 MG ORAL TABLET 1 tablet by mouth qod 2015 DIFLUCAN 150 MG ORAL TABLET 923927 FLUCONAZOLE Inactive BACTRIM DS 800-160 MG ORAL TABLET 1 tab by mouth twice daily 201 12/19/26 BACTRIM DS 800-160 MG ORAL TABLET 571661 TRIMETHOPRIM-SULFAMETHOXAZOLE Inactive CLARITIN 10 MG ORAL TABLET 1 tablet by mouth daily as needed for allergies CLARITIN 10 MG ORAL TABLET 105994 LORATADINE I nactive FLUTICASONE PROPIONATE 50 MCG/ACT NASAL SUSPENSION 2 s prays/nostril qd PRN Congestion/Allergies FLUTICASONE PROPION ATE 50 MCG/ACT NASAL SUSPENSION 8307749 FLUTICASONE PROPIONATE Inactive CIPRO 500 MG ORAL TABLET 1 tablet by mouth twice daily CIPRO 500 MG ORAL TABLET 725316 CIPROFLOXACIN HCL Inactive FLUCONAZOLE 150 MG ORAL TABLET take 1 tab po qday once FLUCONAZOLE 150 MG ORAL TABLET 659342 FLUCONAZOLE Inactive ZITHROMAX Z-KARTHIK 250 MG ORAL TABLET 2 today, then 1 daily for 4 d ays ZITHROMAX Z-KARTHIK 250 MG ORAL TABLET 534268 AZITHROMYCIN Inactive PREDNISONE 20 MG ORAL TABLET 2 tabs daily for 3 days, 1 tab daily for 3 days, 1/2 tab daily for 2 days PREDNISONE 20 MG ORAL T ABLET 818882 PREDNISONE Inactive AZITHROMYCIN 250 MG ORAL TABLET 2 po qd x 1 day, then 1 po q d x 4 days AZITHROMYCIN 250 MG ORAL TABLET 131726 AZITHROMY SPARKLE Inactive PREDNISONE 20 MG ORAL TABLET 2 tabs daily for 3 days, 1 tab daily for 3 days, 1/2 tab daily for 2 days PREDNISONE 20 MG ORAL TABLET 065661 PREDNISONE Inactive CEFDINIR 300 MG ORAL CAPSULE by mouth twice a day 2013 CEFDINIR 300 MG ORAL CAPSULE 824304 CEFDINIR Inactive TRIAMCINOLONE ACETONIDE 0.1 % EXTERNAL OINTMENT Apply to affected areas TID for up to 2 weeks TRIAMCINOLONE ACETON ZACH 0.1 % EXTERNAL OINTMENT 2889978 TRIAMCINOLONE ACETONIDE Inactive PREDNISONE 20 MG ORAL TABLET 2 tabs daily for 3 days, 1 tab daily for 3 days, 1/2 tab daily for 2 days PREDNISONE 20 MG ORAL T ABLET 128703 PREDNISONE Inactive BACTRIM DS 800-160 MG ORAL TABLET 1 po BID x 7 days 29/04/10 BACTRIM DS 800-160 MG ORAL TABLET 152955 SULFAMETHOXAZOLE-TRIMETHOP RIM Inactive CIPRO 500 MG ORAL TABLET 1 tablet by mouth twice daily CIPRO 500 MG ORAL TABLET 637193 CIPROFLOXACIN HCL Inactive AZITHROMYCIN 250 MG ORAL TABLET 2 po qd x 1 day, then 1 po q d x 4 days AZITHROMYCIN 250 MG ORAL TABLET 650024 AZITHROMY SPARKLE Inactive FLAGYL 500 MG ORAL TABLET 1 tablet by mouth bid 04/13 FLAGYL 500 MG ORAL TABLET 451200 METRONIDAZOLE Inactive AZITHROMYCIN 250 MG ORAL TABLET 2 po qd x 1 day, then 1 po q d x 4 days AZITHROMYCIN 250 MG ORAL TABLET 176508 AZITHROMY SPARKLE Inactive AMOXICILLIN 500 MG ORAL CAPSULE 2 po BID x 10 days 201 01/15/27 AMOXICILLIN 500 MG ORAL CAPSULE 853309 AMOXICILLIN Inactive Immunizations Vaccine Administration Date Value [...] PANEL - Chemistry cholesterol, serum 192 mg/dL 899-327 4848/02/20 HDL cholesterol, serum 31 mg/dL > OR [...] 11 .0-15.0 platelet count 218 THOUSAND/UL 10*3/mm3 009-187 2504/02/20 mean platelet volume 9.7 fL 7.5-12.5 Encounters Code Encounter Date Provider Facility CPT-43131 Level 3 Est. Patient 11:24:55 HAND REAMER Efren almendarez [facility] CPT-88883 Level 3 Est. Patient 13:05:44 CDT Paul Hamlin MD [facility] CPT-33096 Level 3 Est. Patient 11:29:55 CDT Checo Conklin MD [facility] CPT-26307 Level 4 Est. Patient 11:08:12 HAND REAMER Checo Conklin MD [facility] CPT-04315 Level 4 Est. Patient 16:06:48 HAND REAMER Checo Conklin MD [facility] CPT-83774 Level 3 Est. Patient 09:11:49 CDT Efren almendarez [facility] CPT-05404 Level 2 Est. Patient 19:53:27 CDT Tanner hill MD [facility] CPT-68680 Level 3 Est. Patient 09:15:34 CDT Efren almendarez [facility] CPT-78458 Level 3 Est. Patient 11:28:51 HAND REAMER Efren almendarez [facility] CPT-72901 Level 4 Est. Patient 13:55:46 HAND REAMER Checo Conklin MD [facility] CPT-93385 Level 4 Est. Patient 17:10:53 CDT Checo Conklin MD [facility] CPT-45509 Level 3 Est. Patient 15:56:22 CDT Checo Conklin MD [facility] CPT-41391 Level 3 Est. Patient 15:29:07 CDT Checo Conklin MD [facility] CPT-03421 Level 3 Est. Patient 14:38:41 CDT Checo Conklin MD [facility] CPT-55898 Level 3 Est. Patient 15:22:03 HAND REAMER Thomas reynolds DO [facility] CPT-72976 Level 3 Est. Patient 13:34:17 HAND REAMER Checo Conklin MD [facility] CPT-16728 Level 3 Est. Patient 12:29:32 CDT Dangelo arroyo MD [facility] CPT-27809 Level 3 Est. Patient 16:53:02 CDT Checo Conklin MD [facility] CPT-40683 Level 3 Est. Patient 16:37:13 CDT Checo Conklin MD [facility] CPT-49003 Level 3 Est. Patient 16:16:59 CDT Paul Hamlin MD [facility] CPT-38885 Level 3 Est. Patient 14:20:13 CDT Dangelo arroyo MD [facility] CPT-05116 Level 4 Est. Patient 11:29:33 CDT Checo Conklin MD [facility] CPT-17678 Level 3 Est. Patient 17:08:31 CDT Checo Conklin MD [facility] CPT-00585 Level 3 Est. Patient 16:50:42 HAND REAMER Checo Conklin MD [facility] CPT-72131 Level 4 Est. Patient 09:26:08 HAND REAMER Checo Conklin MD [facility] CPT-94326 Level 3 Est. Patient 11:37:10 CDT Checo Conklin MD [facility] CPT-84830 Level 4 Est. Patient 14:07:38 CDT Checo Conklin MD [facility] CPT-81215 Level 3 Est. Patient 09:54:41 CDT Checo Conklin MD [facility] CPT-89701 Level 3 Est. Patient 11:10:54 CDT Paul Hamlin MD [facility] CPT-26006 Level 3 Est. Patient 14:16:56 HAND REAMER Checo Conklin MD [facility] CPT-82072 Level 3 Est. Patient 11:04:11 HAND REAMER Checo Conklin MD [facility] CPT-42105 Level 3 Est. Patient 17:09:26 CDT Dangelo arroyo MD [facility] CPT-22765 Level 3 Est. Patient 16:54:37 CDT Checo Conklin MD [facility] Procedures Code Procedure Name Date Entry Date Standard Desc ription CPT-45796 Abd compl w upright - XRAY USE ONLY 1 1:36:54 HAND REAMER CPT-24224 UA w micro - LAB USE ONLY 17:06:46 CDT 2015 CPT-07851 BHCG Qual - LAB USE ONLY 17:06:46 CDT 05/06 CPT-52483 CMP - LAB USE ONLY 17:06:46 CDT CPT-22524 CBC with Diff - LAB USE ONLY 17:06:45 CDT 2 CPT-37351 Venipuncture Draw Fee 17:06:45 CDT CPT-LR Lesion Removal 19:53:27 CDT CPT-OV Office Visit 11:31:28 CDT CPT-09184 Tubersol 09:39:29 CDT CPT-J2550 Phenergan 25 mg (Promethazine) 13:59:02 HAND REAMER CPT-J1885 Toradol 60 mg (Ketorolac) 13:59:02 HAND REAMER 2012
--- OUTSIDE RECORDS SUMMARY | 2019-09-29 01:55 | XMS REPORT | Clinical Summary ---
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 Tanner Carrillo MD Neoplasm of uncertain behavior of skin Abdominal pain, generalized 789.07 Active Jillina Frazell PUBLIC RELATIONS MANAGER Abdominal pain, generalized Urinary frequency 788.41 Active Jillina Frazell PUBLIC RELATIONS MANAGER Urinary frequency BREAST CANCER ICD-V16.3 Inactive Checo [...] tab by mouth twice daily 2 TRIMETHOPRIM-SULFAMETHOXAZOLE 98696157800 No Longer Active Tanner Carrillo MD Active DIFLUCAN 150 MG TAB 1 tablet by mouth qod FLUCO NAZOLE 45390887620 No Longer Active Efren Medel APRN Active CLARITIN 10 MG TAB 1 tablet by mouth daily as needed for allergies LORATADINE 34942119352 Active Americollmanuela Medel PUBLIC RELATIONS MANAGER Active AZITHROMYCIN 250 MG TABS 2 po qd x 1 day, then 1 po qd x 4 days AZITHROMYCIN 23263549727 No Longer Active Americollmanuela Medel APRN Active FLAGYL 500 MG TAB 1 tablet by mouth bid METRONI DAZOLE 77772913048 No Longer Active Checo Conklin MD Active FOCALIN XR 10 MG ORAL [id number] 1 po q a.m. DEX METHYLPHENIDATE HCL 70857096966 Active Checo Conklin MD Active MAGNESIUM CITRATE 1.745 GM/30ML ORAL SOLN 150ml po BID PRN C onstipation MAGNESIUM CITRATE 62001359887 No Longer Active Checo Conklin MD Active BACTROBAN 2 % CREAM Apply to affected area BID for up to 10 days MUPIROCIN CALCIUM 46752572735 No Longer Active Checo Conklin MD Active HYDROCODONE-ACETAMINOPHEN 5-325 MG TABS 1 tab by mouth every 6 hours as needed HYDROCODONE-ACETAMINOPHEN 90657635402 No Longer Activ e Checo Conklin MD Active IBUPROFEN 800 MG TABS 1 tab every 8 hours with food 31/03/21 IBUPROFEN 23694115500 No Longer Active Checo Conklin MD Activ e DIFLUCAN 150 MG TAB 1 tablet by mouth if needed, hold until symptoms start FLUCONAZOLE 60605239681 No Longer Active Checo Ortiz MD Active BACTRIM DS 800-160 MG TAB 1 tab by mouth twice daily 2 TRIMETHOPRIM-SULFAMETHOXAZOLE 76990971879 No Longer Active Corry leong LPN Active MIRALAX PACK 1 po qd PRN Constipation POLYETHYL JOEL GLYCOL 3350 19669799259 Active Checo Conklin MD Active HYDROCODONE-ACETAMINOPHEN 5-325 MG TABS 0.5 to 1 tab b y mouth every 6 hours as needed HYDROCODONE-ACETAMINOPHEN 38213795355 No Longer Active Checo Conklin MD Active ONDANSETRON [address] one tablet on tongue and allow to dissolve every 6 hours as needed for vomitting ONDANSETRO N 55925746573 No Longer Active Checo Conklin MD Active COMPRO 25 MG RECTAL SUPP insert or apply one supposit ory rectally as directed every 12 hours as needed for nausea PROCHLORPERA ZINE 23844972921 No Longer Active Checo Conklin MD Active SUMATRIPTAN SUCCINATE 100 MG ORAL TABS Take one PRN for migrane SUMATRIPTAN SUCCINATE 78466022516 No Longer Active Checo Conklin MD Active TRAVEL SICKNESS 25 MG ORAL CHEW chew and swallow one t ablet every 6 hours as needed MECLIZINE HCL 63035771131 No Longer Active Joe Conklin MD Active BUPROPION HCL ER (SR) 100 MG ORAL [id number] take one t ablet by mouth one time daily for one week then take 1 two times daily BUPROPION HCL 36444828302 No Longer Active Checo Conklin MD Activ e TERBINAFINE HCL 250 MG ORAL TABS take one table PO one time abran y TERBINAFINE HCL 96367295584 No Longer Active Checo Conklin MD Active METOCLOPRAMIDE HCL 10 MG ORAL TABS take one PO tid PRN nausea 20 29/12/14 METOCLOPRAMIDE HCL 27021831210 No Longer Active Checo Conklin MD Active DICLOFENAC SODIUM 75 MG TBEC 1 tablet by mouth twice daily P RN Knee pain DICLOFENAC SODIUM 01715412608 No Longer Active Checo Conklin MD Active LAMISIL 250 MG TAB 1 po qd TERBINAFINE HCL 548 11527213 No Longer Active Checo Conklin MD Active REGLAN 10 MG TAB 1 po TID PRN Nausea METOCLOPRA MIDE HCL 50809776910 No Longer Active Checo Conklin MD Active CELEXA 20 MG TABS 1 tablet by mouth daily CITALOPRAM HYDROBROMIDE 65927697900 No Longer Active Checo Conklin MD Activ e AZITHROMYCIN 250 MG TABS 2 po qd x 1 day, then 1 po qd x 4 days AZITHROMYCIN 87438747364 No Longer Active Checo Conklin MD Active HYDROCODONE-ACETAMINOPHEN 5-325 MG TABS 1 po q 6hr PRN Pain 2013 HYDROCODONE-ACETAMINOPHEN 91979759491 No Longer Active Lenora Conklin MD Active PHENAZOPYRIDINE HCL 200 MG TABS take 1 tab po TID for bladder pa in PHENAZOPYRIDINE HCL 35581933358 No Longer Active Checo Joshua Active CIPRO 500 MG TAB 1 tablet by mouth twice daily CIPROFLOXACIN HCL 86235645505 No Longer Active Dangelo Rangel MD Active HYDROCODONE-ACETAMINOPHEN 5-325 MG TABS 1/2 to 1 po q 4 hour s prn cough HYDROCODONE-ACETAMINOPHEN 14592192557 No Longer Activ e Dangelo Rangel MD Active BACTRIM DS 800-160 MG TABS 1 po BID x 7 days 0 SULFAMETHOXAZOLE-TRIMETHOPRIM 57845012219 No Longer Active Checo Conklin MD Active PREDNISONE 20 MG TAB 2 tabs daily for 3 days, 1 t ab daily for 3 days, 1/2 tab daily for 2 days PREDNISONE 64148814927 No Longer Active Checo Conklin MD Active TRIAMCINOLONE ACETONIDE 0.1 % OINT Apply to affected a reas TID for up to 2 weeks TRIAMCINOLONE ACETONIDE 49396448638 No Longer A ctive Checo Conklin MD Active CEFDINIR 300 MG CAPS by mouth twice a day CEFDI JAZZY 17489801386 No Longer Active Dangelo Rangel MD Active BUPROPION HCL (SMOKING DETER) 150 MG [id number] 1 a day for 1 week then 1 twice a day BUPROPION HCL (SMOKING DETER) 60326246697 No Lo nger Active Checo Conklin MD Active SIMVASTATIN 20 MG TABS 1 po qd SIMVASTATIN 3410805235 5 Active Checo Conklin MD Active CHANTIX STARTING MONTH KARTHIK 0.5 MG X 11 & 1 MG X 42 TAB S 0.5mg daily for 3 days, then 0.5mg BID for 4 days, then 1mg BID VARENICLINE TARTRATE 17708467505 No Longer Active Checo Conklin MD Activ e XANAX 0.5 MG TABS 1 po BID PRN anxiety ALPRAZOLAM 27112732077 Active Checo Conklin MD Active CONCERTA 18 MG CR-TABS 1 po q a.m. METHYLPHENID ATE HCL 86092541693 No Longer Active Checo Conklin MD Active AMBIEN 5 MG TAB 1 po qHS PRN Insomnia ZOLPIDEM TARTRATE 94709011316 Active Checo Conklin MD Active TRAZODONE HCL 100 MG TAB 0.5 to 1 po qHS PRN Insomnia TRAZODONE HCL 58438949260 No Longer Active Checo Conklin MD Acti ve FIORICET 325-50-40 MG TAB 1 tablet by mouth four times daily as needed [id number] 81853604725 No Longer Active Checo Conklin MD Active PHENERGAN CREAM* 25mg applied to wrist q6hr PRN Nausea PHENERGAN CREAM* No Longer Active Checo Conklin MD A ctive FLONASE 50 MCG/ACT SUSP 1 spray each nostril am and hs FLUTICASONE PROPIONATE 64638632098 No Longer Active Checo Simms e ANTIPYRINE-BENZOCAINE 5.4-1.4 % SOLN 1-2 drops in affected ear BENZOCAINE-ANTIPYRINE 60905759852 No Longer Active Checo Conklin MD Active CEFDINIR 300 MG CAPS 1 po bid CEFDINIR 63965000 120 No Longer Active Checo Conklin MD Active PREDNISONE 20 MG TAB 2 tabs daily for 3 days, 1 t ab daily for 3 days, 1/2 tab daily for 2 days PREDNISONE 12004894022 No Longer Active Aracelis Conklin MD Active AZITHROMYCIN 250 MG TABS 2 po qd x 1 day, then 1 po qd x 4 days AZITHROMYCIN 95653261925 No Longer Active Checo Conklin MD Active PREDNISONE 20 MG TAB 2 tabs daily for 3 days, 1 t ab daily for 3 days, 1/2 tab daily for 2 days PREDNISONE 32193067122 No Longer Active Checo Conklin MD Active ZITHROMAX Z-KARTHIK 250 MG TABS 2 today, then 1 daily for 4 days 201 09/18/28 AZITHROMYCIN 47060121856 No Longer Active Paul Hamlin MD Active FOCALIN XR 10 MG [id number] 1 po q a.m. D EXMETHYLPHENIDATE HCL 09563511782 No Longer Active Paul Hamlin MD Activ e PERCOCET 10-325 MG TABS 1 tablet every 6 hours as needed for pain OXYCODONE-ACETAMINOPHEN 67730446514 No Longer Active Paul Hamlin MD Active LORTAB 5 5-500 MG TABS 1/2 to 1 tablet by mouth flaquito ry 4 hours as needed for pain HYDROCODONE-ACETAMINOPHEN 00039034675 No Longer Active Checo Conklin MD Active FOCALIN XR 15 MG [id number] 1 po q a.m. D EXMETHYLPHENIDATE HCL 99143955233 No Longer Active Checo oCnklin MD Activ e ZOFRAN ODT 4 MG TBDP 1 po q6hr PRN Nausea ONDAN SETRON 69306185846 No Longer Active Checo Conklin MD Active PERCOCET 5-325 MG TABS 1 tablet by mouth every 6 hours as needed OXYCODONE-ACETAMINOPHEN 67433414148 No Longer Active Checo Conklin MD Active PYRIDIUM 200 MG TABS take 1 tab po TID prn urinary pain. 0 PHENAZOPYRIDINE HCL 16149909886 No Longer Active Checo Conklin MD Active FLUCONAZOLE 150 MG TABS take 1 tab po qday once 04/06 FLUCONAZOLE 41416026289 No Longer Active Dangelo Rangel MD Acti ve CIPRO 500 MG TAB 1 tablet by mouth twice daily CIPROFLOXACIN HCL 42977386411 No Longer Active Dangelo Rangel MD Active PYRIDIUM 200 MG TABS take 1 tab po TID prn urinary pain. 0 PYRIDIUM 200 MG TABS 9233720 PHENAZOPYRIDINE HCL Inactive PERCOCET 5-325 MG TABS 1 tablet by mouth every 6 hours as needed PERCOCET 5-325 MG TABS 0762302 OXYCODONE-ACETAMINOPHEN I nactive ZOFRAN ODT 4 MG TBDP 1 po q6hr PRN Nausea ZOFRAN ODT 4 MG TBDP 795780 ONDANSETRON Inactive FOCALIN XR 15 MG [id number] 1 po q a.m. F OCALIN XR 15 MG [id number] DEXMETHYLPHENIDATE HCL Inactive LORTAB 5 5-500 MG TABS 1/2 to 1 tablet by mouth flauqito ry 4 hours as needed for pain LORTAB 5 5-500 MG TABS HYDROCODONE-A CETAMINOPHEN Inactive PERCOCET 10-325 MG TABS 1 tablet every 6 hours as needed for pain PERCOCET 10-325 MG TABS 3585397 OXYCODONE-ACETAMINOPHEN Inactive FOCALIN XR 10 MG [id number] 1 po q a.m. F OCALIN XR 10 MG [id number] DEXMETHYLPHENIDATE HCL Inactive CEFDINIR 300 MG CAPS 1 po bid CEFDINIR 300 MG CAPS 20 0346 CEFDINIR Inactive ANTIPYRINE-BENZOCAINE 5.4-1.4 % SOLN 1-2 drops in affected ear ANTIPYRINE-BENZOCAINE 5.4-1.4 % SOLN 571183 BENZOCAINE-ANTIPYRINE I nactive FLONASE 50 MCG/ACT SUSP [...] PRN Insomnia TRAZODONE HCL 100 MG TAB 313110 TRAZODONE HCL Inactive CONCERTA 18 MG CR-TABS [...] s prn cough HYDROCODONE-ACETAMINOPHEN 5-325 MG TABS 608173 HYDROCODONE-ACETAMINOPHEN Inactive PHENAZOPYRIDINE HCL 200 MG TABS take 1 tab po TID for bladder pa in PHENAZOPYRIDINE HCL 200 MG TABS 8261787 PHENAZOPYRIDINE HCL Inactive HYDROCODONE-ACETAMINOPHEN 5-325 MG TABS 1 po q 6hr PRN Pain 2013 HYDROCODONE-ACETAMINOPHEN 5-325 MG TABS 068070 HYDROCODONE-ACETAMINOPHEN Inactive CELEXA 20 MG TABS 1 tablet by mouth daily CELEXA 20 MG TABS 236692 CITALOPRAM HYDROBROMIDE Inactive REGLAN 10 MG TAB 1 po TID PRN Nausea REGLAN 10 MG TAB 278460 METOCLOPRAMIDE HCL Inactive LAMISIL 250 MG TAB 1 po qd LAMISIL 250 MG TAB 299603 TERBINAFINE HCL Inactive DICLOFENAC SODIUM 75 MG TBEC 1 tablet by mouth twice daily P RN Knee pain DICLOFENAC SODIUM 75 MG TBEC 251655 DICLOFENAC S ODIUM Inactive METOCLOPRAMIDE HCL 10 MG ORAL TABS take one PO tid PRN nausea 20 29/12/14 METOCLOPRAMIDE HCL 10 MG ORAL TABS 472144 METOCLOPRAMID E HCL Inactive TERBINAFINE HCL 250 MG ORAL TABS take one table PO one time abran y TERBINAFINE HCL 250 MG ORAL TABS 832457 TERBINAFINE HCL Inactive BUPROPION HCL ER (SR) 100 MG ORAL [id number] take one t ablet by mouth one time daily for one week then take 1 two times daily BUPROPION HCL ER (SR) 100 MG ORAL [id number] BUPROPION HCL Inacti ve TRAVEL SICKNESS 25 MG ORAL CHEW chew and swallow one t ablet every 6 hours as needed TRAVEL SICKNESS 25 MG ORAL CHEW 903313 MECLIZINE HCL Inactive SUMATRIPTAN SUCCINATE 100 MG ORAL TABS Take one PRN for migrane SUMATRIPTAN SUCCINATE 100 MG ORAL TABS 186823 SUMATRIPT AN SUCCINATE Inactive COMPRO 25 MG RECTAL SUPP insert or apply one supposit ory rectally as directed every 12 hours as needed for nausea COMP RO 25 MG RECTAL SUPP 471669 PROCHLORPERAZINE Inactive ONDANSETRON [address] one tablet on tongue and allow to dissolve every 6 hours as needed for vomitting ON DANSETRON 8 MG ORAL TBDP 750572 ONDANSETRON Inactive HYDROCODONE-ACETAMINOPHEN 5-325 MG TABS 0.5 to 1 tab b y mouth every 6 hours as needed HYDROCODONE-ACETAMINOPHEN 5-325 MG TABS 8 35116 HYDROCODONE-ACETAMINOPHEN Inactive BACTRIM DS 800-160 MG TAB 1 tab by mouth twice daily 2 BACTRIM DS 800-160 MG TAB 863180 TRIMETHOPRIM-SULFAMETHOXAZOLE Inac tive DIFLUCAN 150 MG TAB 1 tablet by mouth if needed, hold until symptoms start DIFLUCAN 150 MG TAB 162233 FLUCONAZOLE Inactive IBUPROFEN 800 MG TABS 1 tab every 8 hours with food 20 31/03/21 IBUPROFEN 800 MG TABS 811472 IBUPROFEN Inactive HYDROCODONE-ACETAMINOPHEN 5-325 MG TABS 1 tab by mouth every 6 hours as needed HYDROCODONE-ACETAMINOPHEN 5-325 MG TABS 707741 HYDROCODONE-ACETAMINOPHEN Inactive BACTROBAN 2 % CREAM Apply to affected area BID for up to 10 days BACTROBAN 2 % CREAM 922868 MUPIROCIN CALCIUM Inactive MAGNESIUM CITRATE 1.745 GM/30ML ORAL SOLN 150ml po BID PRN C onstipation MAGNESIUM CITRATE 1.745 GM/30ML ORAL SOLN 666291 0 MAGNESIUM CITRATE Inactive DIFLUCAN 150 MG TAB 1 tablet by mouth qod DIFLUCAN 150 MG TAB 357345 FLUCONAZOLE Inactive BACTRIM DS 800-160 MG TAB 1 tab by mouth twice daily 2 BACTRIM DS 800-160 MG TAB 405221 TRIMETHOPRIM-SULFAMETHOXAZOLE Inac tive CIPRO 500 MG TAB 1 tablet by mouth twice daily CIPRO 500 MG TAB 896529 CIPROFLOXACIN HCL Inactive FLUCONAZOLE 150 MG TABS take 1 tab po qday once 04/06 FLUCONAZOLE 150 MG TABS 19760325 FLUCONAZOLE Inactive ZITHROMAX Z-KARTHIK 250 MG TABS 2 today, then 1 daily for 4 days 201 09/18/28 ZITHROMAX Z-KARTHIK 250 MG TABS 2390889 AZITHROMYCIN Inac tive PREDNISONE 20 MG TAB 2 tabs daily for 3 days, 1 t ab daily for 3 days, 1/2 tab daily for 2 days PREDNISONE 20 MG TAB 175704 PREDNISON E Inactive AZITHROMYCIN 250 MG TABS 2 po qd x 1 day, then 1 po qd x 4 days AZITHROMYCIN 250 MG TABS 0561463 AZITHROMYCIN Inactiv e PREDNISONE 20 MG TAB 2 tabs daily for 3 days, 1 t ab daily for 3 days, 1/2 tab daily for 2 days PREDNISONE 20 MG TAB 961002 PREDNISON E Inactive CEFDINIR 300 MG CAPS by mouth twice a day CEFDINIR 300 MG CAPS 562244 CEFDINIR Inactive TRIAMCINOLONE ACETONIDE 0.1 % OINT Apply to affected a reas TID for up to 2 weeks TRIAMCINOLONE ACETONIDE 0.1 % OINT 634665 6 TRIAMCINOLONE ACETONIDE Inactive PREDNISONE 20 MG TAB 2 tabs daily for 3 days, 1 t ab daily for 3 days, 1/2 tab daily for 2 days PREDNISONE 20 MG TAB 151129 PREDNISON E Inactive BACTRIM DS 800-160 MG TABS 1 po BID x 7 days 0 BACTRIM DS 800-160 MG TABS 110220 SULFAMETHOXAZOLE-TRIMETHOPRIM Inactive CIPRO 500 MG TAB 1 tablet by mouth twice daily CIPRO 500 MG TAB 314373 CIPROFLOXACIN HCL Inactive AZITHROMYCIN 250 MG TABS 2 po qd x 1 day, then 1 po qd x 4 days AZITHROMYCIN 250 MG TABS 1639722 AZITHROMYCIN Inactiv e FLAGYL 500 MG TAB 1 tablet by mouth bid FLAGYL 500 MG TAB 301299 METRONIDAZOLE Inactive AZITHROMYCIN 250 MG TABS 2 po qd x 1 day, then 1 po qd x 4 days AZITHROMYCIN 250 MG TABS 0482574 AZITHROMYCIN Inactiv e Immunizations Vaccine Administration Date [...] Report: CBC W/DIFF, Comp. Metabolic Panel, Qual [facility] [place] Chemistry sodium, serum 139 mmol/L 486-260 4155/10/21 carbon dioxide, venous blood 33.5 mmol/L 21.0-32 [...] Report: CBC W/DIFF, Comp. Metabolic Panel, Qual [facility] - Hematology leukocyte count, blood 7.9 10^3/MM^3 [...] 248 10^3/MM^3 10*3/mm3 142-424 Lab Report: Chlamydia/GC [facility]TIM[facility]/[id number] - Lab chlamydia DNA probe NOT DETECTED NOT DETECTED Lab Report: Chlamydia/GC [facility]/[id number] - Microbiology Neisseria gonorrhoeae DNA probe NOT DETECTED NO T DETECTED Lab Report: Comp. Metabolic Panel, Lipid Panel, Thyroid Stimulating Horm ... - Chemistry protein, total urine random Negative mg/dL Negative RBC, urine, dipstick Negative Negative sodium, serum 141 mmol/L 189-294 6779/01/26 carbon dioxide, venous blood 30.0 mmol/L 21.0-32 .0 potassium, serum 4.0 mmol/L 3.5-5.2 chloride, serum 105 mmol/L 98-107 blood glucose 85 mg/dL 65-110 urea nitrogen, blood 9 mg/dL 7-18 creatinine, serum 0.66 mg/dL 0.55-1.30 alanine aminotransferase (SGPT), serum 31 U/L 12-78 aspartate aminotransferase (SGOT), serum 21 U/L 15-37 calcium, serum 8.2 mg/dL 8.5-10.1 bilirubin, serum, total 1.10 mg/dL 0.00-1.00 cholesterol, serum 178 mg/dL 407-497 6940/01/26 triglyceride, serum, fasting 149 mg/dL 30-200 HDL [...] ... - Chemistry sodium, serum 137 mmol/L 695-544 0919/05/27 carbon dioxide, venous blood 29.1 mmol/L 21.0-32 [...] 5.0-8.5 Encounters Code Encounter Date Provider Facility CPT-01996 Level 3 Est. Patient 09:11:49 CDT Efren almendarez APRN [facility] CPT-04119 Level 2 Est. Patient 19:53:27 CDT Tanner hill MD [facility] CPT-26743 Level 3 Est. Patient 09:15:34 CDT Efren Nicolas sagastumerico [facility] CPT-59072 Level 3 Est. Patient 11:28:51 MANAGER CASINO Efren Nicolas miteshrico [facility] CPT-49309 Level 4 Est. Patient 13:55:46 MANAGER CASINO Checo Conklin MD [facility] CPT-53644 Level 4 Est. Patient 17:10:53 CDT Checo Conklin MD [facility] CPT-63890 Level 3 Est. Patient 15:56:22 CDT Checo Conklin MD [facility] CPT-29686 Level 3 Est. Patient 15:29:07 CDT Checo Conklin MD [facility] CPT-12943 Level 3 Est. Patient 14:38:41 CDT Checo Conklin MD [facility]-97175 Level 3 Est. Patient 15:22:03 MANAGER CASINO Thomas reynolds DO [facility] CPT-03726 Level 3 Est. Patient 13:34:17 MANAGER CASINO Checo Conklin MD [facility]-22765 Level 3 Est. Patient 12:29:32 CDT Dangelo arroyo MD [facility]-40978 Level 3 Est. Patient 16:53:02 CDT Checo Conklin MD [facility] CPT-37483 Level 3 Est. Patient 16:37:13 CDT Checo Conklin MD [facility] CPT-81730 Level 3 Est. Patient 16:16:59 CDT Paul Hamlin MD [facility]-24241 Level 3 Est. Patient 14:20:13 CDT Dangelo arroyo MD [facility]-68593 Level 4 Est. Patient 11:29:33 CDT Checo Conklin MD [facility] CPT-24363 Level 3 Est. Patient 17:08:31 CDT Checo Conklin MD [facility] CPT-30207 Level 3 Est. Patient 16:50:42 MANAGER CASINO Checo Conklin MD [facility] CPT-53342 Level 4 Est. Patient 09:26:08 MANAGER CASINO Checo Conklin MD [facility] CPT-74873 Level 3 Est. Patient 11:37:10 CDT Checo Conklin MD [facility] CPT-69350 Level 4 Est. Patient 14:07:38 CDT Checo Conklin MD [facility] CPT-72864 Level 3 Est. Patient 09:54:41 CDT Checo Conklin MD [facility] CPT-95239 Level 3 Est. Patient 11:10:54 CDT Paul Hamlin MD [facility] CPT-48952 Level 3 Est. Patient 14:16:56 MANAGER CASINO Checo Conklin MD [facility] CPT-92959 Level 3 Est. Patient 11:04:11 MANAGER CASINO Checo Conklin MD [facility] CPT-27949 Level 3 Est. Patient 17:09:26 CDT Dangelo arroyo MD [facility] CPT-92698 Level 3 Est. Patient 16:54:37 CDT Checo Conklin MD [facility] Procedures Code Procedure Name Date Entry Date Standard Desc ription CPT-74047 UA w micro - LAB USE ONLY 17:06:46 CDT 2015 CPT-60854 [facility] Qual - LAB USE ONLY 17:06:46 CDT 05/06 CPT-68645 CMP - LAB USE ONLY 17:06:46 CDT CPT-43932 CBC with Diff - LAB USE ONLY 17:06:45 CDT 2 CPT-16328 Venipuncture Draw Fee 17:06:45 CDT CPT-LR Lesion Removal 19:53:27 CDT CPT-OV Office Visit 11:31:28 CDT CPT-67115 Tubersol 09:39:29 CDT CPT-J2550 Phenergan 25 mg (Promethazine) 13:59:02 MANAGER CASINO CPT-J1885 Toradol 60 mg (Ketorolac) 13:59:02 MANAGER CASINO 2012
--- OUTSIDE RECORDS SUMMARY | 2019-09-29 01:55 | XMS REPORT | Clinical Summary ---
Author Author Admin, Bethany Ayala [facility] Address Unknown Phone Unavailable [...] TABS 1.5 po qd PAROX ETINE HCL 65330965423 Active Checo Conklin MD Active FLUTICASONE PROPIONATE 50 MCG/ACT NASAL SUSP 2 sprays/ nostril qd PRN Congestion/Allergies FLUTICASONE PROPIONATE 9057404284 5 No Longer Active Checo Conklin MD Active AMOXICILLIN 500 MG ORAL CAPS 2 po BID x 10 days 09/12 AMOXICILLIN 83153151811 No Longer Active Checo Conklin MD Activ e MIRALAX ORAL POWD 8.5 to 17g po qd PRN Constipation POLYETHYLENE GLYCOL 3350 65885578339 Active Checo Conklin MD Active CLARITIN 10 MG TAB 1 tablet by mouth daily as needed for allergi es LORATADINE 73942117904 No Longer Active Checo Conklin MD Active BACTRIM DS 800-160 MG TAB 1 tab by mouth twice daily 2 TRIMETHOPRIM-SULFAMETHOXAZOLE 03018133112 No Longer Active Tanner Carrillo MD Active DIFLUCAN 150 MG TAB 1 tablet by mouth qod FLUCO NAZOLE 78520502839 No Longer Active Efren Medel APRN Active AZITHROMYCIN 250 MG TABS 2 po qd x 1 day, then 1 po qd x 4 days AZITHROMYCIN 45707311557 No Longer Active Jilyndsayina Frajoel PHYSICIAN GENER[facility]ACTICE Active FLAGYL 500 MG TAB 1 tablet by mouth bid METRONI DAZOLE 11344307890 No Longer Active Checo Conklin MD Active FOCALIN XR 10 MG ORAL [id number] 1 po q a.m. DEX METHYLPHENIDATE HCL 87766072479 Active Checo Conklin MD Active MAGNESIUM CITRATE 1.745 GM/30ML ORAL SOLN 150ml po BID PRN C onstipation MAGNESIUM CITRATE 64008236549 No Longer Active Checo Conklin MD Active BACTROBAN 2 % CREAM Apply to affected area BID for up to 10 days MUPIROCIN CALCIUM 58884591935 No Longer Active Checo Conklin MD Active HYDROCODONE-ACETAMINOPHEN 5-325 MG TABS 1 tab by mouth every 6 hours as needed HYDROCODONE-ACETAMINOPHEN 28426432755 No Longer Activ e Checo Conklin MD Active IBUPROFEN 800 MG TABS 1 tab every 8 hours with food 20 31/03/21 IBUPROFEN 82715077900 No Longer Active Checo Conklin MD Activ e DIFLUCAN 150 MG TAB 1 tablet by mouth if needed, hold until symptoms start FLUCONAZOLE 95927330735 No Longer Active Checo Ortiz MD Active BACTRIM DS 800-160 MG TAB 1 tab by mouth twice daily 2 TRIMETHOPRIM-SULFAMETHOXAZOLE 78453311599 No Longer Active Corry leong LPN Active HYDROCODONE-ACETAMINOPHEN 5-325 MG TABS 0.5 to 1 tab b y mouth every 6 hours as needed HYDROCODONE-ACETAMINOPHEN 00921365209 No Longer Active Checo Conklin MD Active ONDANSETRON [address] one tablet on tongue and allow to dissolve every 6 hours as needed for vomitting ONDANSETRO N 30434069486 No Longer Active Checo Conklin MD Active COMPRO 25 MG RECTAL SUPP insert or apply one supposit ory rectally as directed every 12 hours as needed for nausea PROCHLORPERA ZINE 57050231214 No Longer Active Checo Conklin MD Active SUMATRIPTAN SUCCINATE 100 MG ORAL TABS Take one PRN for migrane SUMATRIPTAN SUCCINATE 10172394183 No Longer Active Checo Conklin MD Active TRAVEL SICKNESS 25 MG ORAL CHEW chew and swallow one t ablet every 6 hours as needed MECLIZINE HCL 67692770845 No Longer Active Joe Conklin MD Active BUPROPION HCL ER (SR) 100 MG ORAL [id number] take one t ablet by mouth one time daily for one week then take 1 two times daily BUPROPION HCL 12346205432 No Longer Active Checo Conklin MD Activ e TERBINAFINE HCL 250 MG ORAL TABS take one table PO one time abran y TERBINAFINE HCL 24283092218 No Longer Active Checo Conklin MD Active METOCLOPRAMIDE HCL 10 MG ORAL TABS take one PO tid PRN nausea 20 29/12/14 METOCLOPRAMIDE HCL 36622752904 No Longer Active Checo Conklin MD Active DICLOFENAC SODIUM 75 MG TBEC 1 tablet by mouth twice daily P RN Knee pain DICLOFENAC SODIUM 22680061426 No Longer Active Checo Conklin MD Active LAMISIL 250 MG TAB 1 po qd TERBINAFINE HCL 548 98660226 No Longer Active Checo Conklin MD Active REGLAN 10 MG TAB 1 po TID PRN Nausea METOCLOPRA MIDE HCL 54887391128 No Longer Active Checo Conklin MD Active CELEXA 20 MG TABS 1 tablet by mouth daily CITALOPRAM HYDROBROMIDE 36226737832 No Longer Active Checo Conklin MD Activ e AZITHROMYCIN 250 MG TABS 2 po qd x 1 day, then 1 po qd x 4 days AZITHROMYCIN 47214797186 No Longer Active Checo Conklin MD Active HYDROCODONE-ACETAMINOPHEN 5-325 MG TABS 1 po q 6hr PRN Pain 2013 HYDROCODONE-ACETAMINOPHEN 46624757519 No Longer Active Lenora Conklin MD Active PHENAZOPYRIDINE HCL 200 MG TABS take 1 tab po TID for bladder pa in PHENAZOPYRIDINE HCL 55473955825 No Longer Active Checo Joshua Active CIPRO 500 MG TAB 1 tablet by mouth twice daily CIPROFLOXACIN HCL 11919174573 No Longer Active Dangelo Rangel MD Active HYDROCODONE-ACETAMINOPHEN 5-325 MG TABS 1/2 to 1 po q 4 hour s prn cough HYDROCODONE-ACETAMINOPHEN 12280872442 No Longer Activ e Dangelo Rangel MD Active BACTRIM DS 800-160 MG TABS 1 po BID x 7 days 0 SULFAMETHOXAZOLE-TRIMETHOPRIM 91250474837 No Longer Active Checo Conklin MD Active PREDNISONE 20 MG TAB 2 tabs daily for 3 days, 1 t ab daily for 3 days, 1/2 tab daily for 2 days PREDNISONE 67012490365 No Longer Active Checo Conklin MD Active TRIAMCINOLONE ACETONIDE 0.1 % OINT Apply to affected a reas TID for up to 2 weeks TRIAMCINOLONE ACETONIDE 17595940315 No Longer A ctive Checo Conklin MD Active CEFDINIR 300 MG CAPS by mouth twice a day CEFDI JAZZY 44266601473 No Longer Active Dangelo Rangel MD Active BUPROPION HCL (SMOKING DETER) 150 MG [id number] 1 a day for 1 week then 1 twice a day BUPROPION HCL (SMOKING DETER) 44672636661 No Lo nger Active Checo Conklin MD Active SIMVASTATIN 20 MG TABS 1 po qd SIMVASTATIN 9238820437 5 Active Checo Conklin MD Active CHANTIX STARTING MONTH KARTHIK 0.5 MG X 11 & 1 MG X 42 TAB S 0.5mg daily for 3 days, then 0.5mg BID for 4 days, then 1mg BID VARENICLINE TARTRATE 35222778351 No Longer Active Checo Conklin MD Activ e XANAX 0.5 MG TABS 1 po BID PRN anxiety ALPRAZOLAM 69743499071 Active Checo Conklin MD Active CONCERTA 18 MG CR-TABS 1 po q a.m. METHYLPHENID ATE HCL 12373538128 No Longer Active Checo Conklin MD Active AMBIEN 5 MG TAB 1 po qHS PRN Insomnia ZOLPIDEM TARTRATE 57443488855 Active Checo Conklin MD Active TRAZODONE HCL 100 MG TAB 0.5 to 1 po qHS PRN Insomnia TRAZODONE HCL 00871973632 No Longer Active Checo Conklin MD Acti ve FIORICET 325-50-40 MG TAB 1 tablet by mouth four times daily as needed [id number] 10893604202 No Longer Active Checo Conklin MD Active PHENERGAN CREAM* 25mg applied to wrist q6hr PRN Nausea PHENERGAN CREAM* No Longer Active Checo Conklin MD A ctive FLONASE 50 MCG/ACT SUSP 1 spray each nostril am and hs FLUTICASONE PROPIONATE 95442124081 No Longer Active Checo Conklin MD Activ e ANTIPYRINE-BENZOCAINE 5.4-1.4 % SOLN 1-2 drops in affected ear BENZOCAINE-ANTIPYRINE 10985257789 No Longer Active Checo Conklin MD Active CEFDINIR 300 MG CAPS 1 po bid CEFDINIR 42895160 120 No Longer Active Checo Conklin MD Active PREDNISONE 20 MG TAB 2 tabs daily for 3 days, 1 t ab daily for 3 days, 1/2 tab daily for 2 days PREDNISONE 76029984649 No Longer Active Aracelis Conklin MD Active AZITHROMYCIN 250 MG TABS 2 po qd x 1 day, then 1 po qd x 4 days AZITHROMYCIN 71155557806 No Longer Active Checo Conklin MD Active PREDNISONE 20 MG TAB 2 tabs daily for 3 days, 1 t ab daily for 3 days, 1/2 tab daily for 2 days PREDNISONE 45409336151 No Longer Active Checo Conklin MD Active ZITHROMAX Z-KARTHIK 250 MG TABS 2 today, then 1 daily for 4 days 201 09/18/28 AZITHROMYCIN 55441712437 No Longer Active Paul Hamlin MD Active FOCALIN XR 10 MG [id number] 1 po q a.m. D EXMETHYLPHENIDATE HCL 49324751484 No Longer Active Paul Hamlin MD Activ e PERCOCET 10-325 MG TABS 1 tablet every 6 hours as needed for pain OXYCODONE-ACETAMINOPHEN 99088090743 No Longer Active Paul Hamlin MD Active LORTAB 5 5-500 MG TABS 1/2 to 1 tablet by mouth flaquito ry 4 hours as needed for pain HYDROCODONE-ACETAMINOPHEN 10265817974 No Longer Active Checo Conklin MD Active FOCALIN XR 15 MG [id number] 1 po q a.m. D EXMETHYLPHENIDATE HCL 73315998392 No Longer Active Checo Conklin MD Activ e ZOFRAN ODT 4 MG TBDP 1 po q6hr PRN Nausea ONDAN SETRON 30177743916 No Longer Active Checo Conklin MD Active PERCOCET 5-325 MG TABS 1 tablet by mouth every 6 hours as needed OXYCODONE-ACETAMINOPHEN 82345887749 No Longer Active Checo Conklin MD Active PYRIDIUM 200 MG TABS take 1 tab po TID prn urinary pain. 0 PHENAZOPYRIDINE HCL 64537174154 No Longer Active Checo Conklin MD Active FLUCONAZOLE 150 MG TABS take 1 tab po qday once 0 04/06 FLUCONAZOLE 57789841709 No Longer Active Dangelo Rangel MD Acti ve CIPRO 500 MG TAB 1 tablet by mouth twice daily CIPROFLOXACIN HCL 47892066029 No Longer Active Dangelo Rangel MD Active PYRIDIUM 200 MG TABS take 1 tab po TID prn urinary pain. 0 PYRIDIUM 200 MG TABS 3624937 PHENAZOPYRIDINE HCL Inactive PERCOCET 5-325 MG TABS 1 tablet by mouth every 6 hours as needed PERCOCET 5-325 MG TABS 6425217 OXYCODONE-ACETAMINOPHEN I nactive ZOFRAN ODT 4 MG TBDP 1 po q6hr PRN Nausea ZOFRAN ODT 4 MG TBDP 352720 ONDANSETRON Inactive FOCALIN XR 15 MG [id number] 1 po q a.m. F OCALIN XR 15 MG [id number] DEXMETHYLPHENIDATE HCL Inactive LORTAB 5 5-500 MG TABS 1/2 to 1 tablet by mouth flaquito ry 4 hours as needed for pain LORTAB 5 5-500 MG TABS 956974 HYDROCODONE-A CETAMINOPHEN Inactive PERCOCET 10-325 MG TABS 1 tablet every 6 hours as needed for pain PERCOCET 10-325 MG TABS 9410063 OXYCODONE-ACETAMINOPHEN Inactive FOCALIN XR 10 MG [id number] 1 po q a.m. F OCALIN XR 10 MG [id number] DEXMETHYLPHENIDATE HCL Inactive CEFDINIR 300 MG CAPS 1 po bid CEFDINIR 300 MG CAPS 20 0346 CEFDINIR Inactive ANTIPYRINE-BENZOCAINE 5.4-1.4 % SOLN 1-2 drops in affected ear ANTIPYRINE-BENZOCAINE 5.4-1.4 % SOLN 645439 BENZOCAINE-ANTIPYRINE I nactive FLONASE 50 MCG/ACT SUSP 1 spray each nostril am and hs FLONASE 50 MCG/ACT SUSP 4301215 FLUTICASONE PROPIONATE Inactive PHENERGAN CREAM* 25mg applied to wrist q6hr PRN Nausea PHENERGAN CREAM* Inactive FIORICET 325-50-40 MG TAB 1 tablet by mouth four times daily as needed FIORICET 325-50-40 MG TAB ACETAMINOPHEN-C AFF-BUTALBITAL Inactive TRAZODONE HCL 100 MG TAB 0.5 to 1 po qHS PRN Insomnia TRAZODONE HCL 100 MG TAB 083053 TRAZODONE HCL Inactive CONCERTA 18 MG CR-TABS [...] s prn cough HYDROCODONE-ACETAMINOPHEN 5-325 MG TABS 896591 HYDROCODONE-ACETAMINOPHEN Inactive PHENAZOPYRIDINE HCL 200 MG TABS take 1 tab po TID for bladder pa in PHENAZOPYRIDINE HCL 200 MG TABS 0176839 PHENAZOPYRIDINE HCL Inactive HYDROCODONE-ACETAMINOPHEN 5-325 MG TABS 1 po q 6hr PRN Pain 2013 HYDROCODONE-ACETAMINOPHEN 5-325 MG TABS 779505 HYDROCODONE-ACETAMINOPHEN Inactive CELEXA 20 MG TABS 1 tablet by mouth daily CELEXA 20 MG TABS 510283 CITALOPRAM HYDROBROMIDE Inactive REGLAN 10 MG TAB 1 po TID PRN Nausea REGLAN 10 MG TAB 063727 METOCLOPRAMIDE HCL Inactive LAMISIL 250 MG TAB 1 po qd LAMISIL 250 MG TAB 140360 TERBINAFINE HCL Inactive DICLOFENAC SODIUM 75 MG TBEC 1 tablet by mouth twice daily P RN Knee pain DICLOFENAC SODIUM 75 MG TBEC 831470 DICLOFENAC S ODIUM Inactive METOCLOPRAMIDE HCL 10 MG ORAL TABS take one PO tid PRN nausea 20 29/12/14 METOCLOPRAMIDE HCL 10 MG ORAL TABS 803249 METOCLOPRAMID E HCL Inactive TERBINAFINE HCL 250 MG ORAL TABS take one table PO one time abran y TERBINAFINE HCL 250 MG ORAL TABS 182293 TERBINAFINE HCL Inactive BUPROPION HCL ER (SR) 100 MG ORAL [id number] take one t ablet by mouth one time daily for one week then take 1 two times daily BUPROPION HCL ER (SR) 100 MG ORAL [id number] BUPROPION HCL Inacti ve TRAVEL SICKNESS 25 MG ORAL CHEW chew and swallow one t ablet every 6 hours as needed TRAVEL SICKNESS 25 MG ORAL CHEW 864979 MECLIZINE HCL Inactive SUMATRIPTAN SUCCINATE 100 MG ORAL TABS Take one PRN for migrane SUMATRIPTAN SUCCINATE 100 MG ORAL TABS 557573 SUMATRIPT AN SUCCINATE Inactive COMPRO 25 MG RECTAL SUPP insert or apply one supposit ory rectally as directed every 12 hours as needed for nausea COMP RO 25 MG RECTAL SUPP 776351 PROCHLORPERAZINE Inactive ONDANSETRON [address] one tablet on tongue and allow to dissolve every 6 hours as needed for vomitting ON DANSETRON 8 MG ORAL TBDP 214120 ONDANSETRON Inactive HYDROCODONE-ACETAMINOPHEN 5-325 MG TABS 0.5 to 1 tab b y mouth every 6 hours as needed HYDROCODONE-ACETAMINOPHEN 5-325 MG TABS 8 95185 HYDROCODONE-ACETAMINOPHEN Inactive BACTRIM DS 800-160 MG TAB 1 tab by mouth twice daily 2 BACTRIM DS 800-160 MG TAB 19820918 TRIMETHOPRIM-SULFAMETHOXAZOLE Inac tive DIFLUCAN 150 MG TAB 1 tablet by mouth if needed, hold until symptoms start DIFLUCAN 150 MG TAB 19760325 FLUCONAZOLE Inactive IBUPROFEN 800 MG TABS 1 tab every 8 hours with food 31/03/21 IBUPROFEN 800 MG TABS 693487 IBUPROFEN Inactive HYDROCODONE-ACETAMINOPHEN 5-325 MG TABS 1 tab by mouth every 6 hours as needed HYDROCODONE-ACETAMINOPHEN 5-325 MG TABS 699989 HYDROCODONE-ACETAMINOPHEN Inactive BACTROBAN 2 % CREAM Apply to affected area BID for up to 10 days BACTROBAN 2 % CREAM 360367 MUPIROCIN CALCIUM Inactive MAGNESIUM CITRATE 1.745 GM/30ML ORAL SOLN 150ml po BID PRN C onstipation MAGNESIUM CITRATE 1.745 GM/30ML ORAL SOLN 803473 0 MAGNESIUM CITRATE Inactive DIFLUCAN 150 MG TAB 1 tablet by mouth qod DIFLUCAN 150 MG TAB 643811 FLUCONAZOLE Inactive BACTRIM DS 800-160 MG TAB 1 tab by mouth twice daily 2 BACTRIM DS 800-160 MG TAB 19820918 TRIMETHOPRIM-SULFAMETHOXAZOLE Inac tive CLARITIN 10 MG TAB 1 tablet by mouth daily as needed for allergi es CLARITIN 10 MG TAB 308638 LORATADINE Inactive FLUTICASONE PROPIONATE 50 MCG/ACT NASAL SUSP 2 sprays/ nostril qd PRN Congestion/Allergies FLUTICASONE PROPION ATE 50 MCG/ACT NASAL SUSP 9258590 FLUTICASONE PROPIONATE Inactive CIPRO 500 MG TAB 1 tablet by mouth twice daily CIPRO 500 MG TAB 880505 CIPROFLOXACIN HCL Inactive FLUCONAZOLE 150 MG TABS take 1 tab po qday once 04/06 FLUCONAZOLE 150 MG TABS 871089 FLUCONAZOLE Inactive ZITHROMAX Z-KARTHIK 250 MG TABS 2 today, then 1 daily for 4 days 201 09/18/28 ZITHROMAX Z-KARTHIK 250 MG TABS 465096 AZITHROMYCIN Inac tive PREDNISONE 20 MG TAB 2 tabs daily for 3 days, 1 t ab daily for 3 days, 1/2 tab daily for 2 days PREDNISONE 20 MG TAB 811230 PREDNISON E Inactive AZITHROMYCIN 250 MG TABS 2 po qd x 1 day, then 1 po qd x 4 days AZITHROMYCIN 250 MG TABS 790019 AZITHROMYCIN Inactiv e PREDNISONE 20 MG TAB 2 tabs daily for 3 days, 1 t ab daily for 3 days, 1/2 tab daily for 2 days PREDNISONE 20 MG TAB 095298 PREDNISON E Inactive CEFDINIR 300 MG CAPS by mouth twice a day CEFDINIR 300 MG CAPS 280697 CEFDINIR Inactive TRIAMCINOLONE ACETONIDE 0.1 % OINT Apply to affected a reas TID for up to 2 weeks TRIAMCINOLONE ACETONIDE 0.1 % OINT 181898 6 TRIAMCINOLONE ACETONIDE Inactive PREDNISONE 20 MG TAB 2 tabs daily for 3 days, 1 t ab daily for 3 days, 1/2 tab daily for 2 days PREDNISONE 20 MG TAB 751685 PREDNISON E Inactive BACTRIM DS 800-160 MG TABS 1 po BID x 7 days 0 BACTRIM DS 800-160 MG TABS 444489 SULFAMETHOXAZOLE-TRIMETHOPRIM Inactive CIPRO 500 MG TAB 1 tablet by mouth twice daily CIPRO 500 MG TAB 231749 CIPROFLOXACIN HCL Inactive AZITHROMYCIN 250 MG TABS 2 po qd x 1 day, then 1 po qd x 4 days AZITHROMYCIN 250 MG TABS 531377 AZITHROMYCIN Inactiv e FLAGYL 500 MG TAB 1 tablet by mouth bid FLAGYL 500 MG TAB 528123 METRONIDAZOLE Inactive AZITHROMYCIN 250 MG TABS 2 po qd x 1 day, then 1 po qd x 4 days AZITHROMYCIN 250 MG TABS 638566 AZITHROMYCIN Inactiv e AMOXICILLIN 500 MG ORAL CAPS 2 po BID x 10 days 09/12 AMOXICILLIN 500 MG ORAL CAPS 412924 AMOXICILLIN Inactive Immunizations Vaccine Administration Date Value [...] PANEL - Chemistry cholesterol, serum 192 mg/dL 614-246 8540/02/20 HDL cholesterol, serum 31 mg/dL > OR [...] 11 .0-15.0 platelet count 218 THOUSAND/UL 10*3/mm3 761-430 5810/02/20 mean platelet volume 9.7 fL 7.5-12.5 Encounters Code Encounter Date Provider Facility CPT-55463 Level 3 Est. Patient 13:05:44 CDT Paul Hamlin MD [facility] CPT-28708 Level 3 Est. Patient 11:29:55 CDT Checo Conklin MD [facility] CPT-13155 Level 4 Est. Patient 11:08:12 SEVERITY OF ILLNESS COORDINATOR Checo Conklin MD [facility] CPT-57367 Level 4 Est. Patient 16:06:48 SEVERITY OF ILLNESS COORDINATOR Checo Conklin MD [facility] CPT-03468 Level 3 Est. Patient 09:11:49 CDT Efren almendarez APRN [facility] CPT-80563 Level 2 Est. Patient 19:53:27 CDT Tanner hill MD [facility] CPT-64382 Level 3 Est. Patient 09:15:34 CDT Efren almendarez [facility] CPT-67574 Level 3 Est. Patient 11:28:51 SEVERITY OF ILLNESS COORDINATOR Efren almendarez [facility] CPT-30802 Level 4 Est. Patient 13:55:46 SEVERITY OF ILLNESS COORDINATOR Checo Conklin MD [facility] CPT-89823 Level 4 Est. Patient 17:10:53 CDT Checo Conklin MD [facility] CPT-71312 Level 3 Est. Patient 15:56:22 CDT Checo Conklin MD [facility] CPT-94130 Level 3 Est. Patient 15:29:07 CDT Checo Conklin MD [facility] CPT-93975 Level 3 Est. Patient 14:38:41 CDT Checo Conklin MD [facility] CPT-91985 Level 3 Est. Patient 15:22:03 SEVERITY OF ILLNESS COORDINATOR Thomas reynolds DO [facility] CPT-98213 Level 3 Est. Patient 13:34:17 SEVERITY OF ILLNESS COORDINATOR Checo Conklin MD [facility]-65185 Level 3 Est. Patient 12:29:32 CDT Dangelo arroyo MD [facility]-42375 Level 3 Est. Patient 16:53:02 CDT Checo Conklin MD [facility] CPT-67347 Level 3 Est. Patient 16:37:13 CDT Checo Conklin MD [facility] CPT-71222 Level 3 Est. Patient 16:16:59 CDT Paul Hamlin MD [facility]-81837 Level 3 Est. Patient 14:20:13 CDT Dangelo arroyo MD [facility]-95975 Level 4 Est. Patient 11:29:33 CDT Checo Conklin MD [facility] CPT-02626 Level 3 Est. Patient 17:08:31 CDT Checo Conklin MD [facility] CPT-76310 Level 3 Est. Patient 16:50:42 SEVERITY OF ILLNESS COORDINATOR Checo Conklin MD [facility] CPT-55978 Level 4 Est. Patient 09:26:08 SEVERITY OF ILLNESS COORDINATOR Checo Conklin MD [facility] CPT-39137 Level 3 Est. Patient 11:37:10 CDT Checo Conklin MD [facility] CPT-37322 Level 4 Est. Patient 14:07:38 CDT Checo Conklin MD [facility] CPT-78971 Level 3 Est. Patient 09:54:41 CDT Checo Conklin MD [facility] CPT-32449 Level 3 Est. Patient 11:10:54 CDT Paul Hamlin MD [facility] CPT-36398 Level 3 Est. Patient 14:16:56 SEVERITY OF ILLNESS COORDINATOR Checo Conklin MD [facility] CPT-80123 Level 3 Est. Patient 11:04:11 SEVERITY OF ILLNESS COORDINATOR Checo Conklin MD [facility] CPT-43116 Level 3 Est. Patient 17:09:26 CDT Dangelo arroyo MD [facility] CPT-05293 Level 3 Est. Patient 16:54:37 CDT Checo Conklin MD [facility] Procedures Code Procedure Name Date Entry Date Standard Desc ription CPT-24925 UA w micro - LAB USE ONLY 17:06:46 CDT 2015 CPT-54126 [facility]CG Qual - LAB USE ONLY 17:06:46 CDT 05/06 CPT-82901 CMP - LAB USE ONLY 17:06:46 CDT CPT-93823 CBC with Diff - LAB USE ONLY 17:06:45 CDT 2 CPT-89178 Venipuncture Draw Fee 17:06:45 CDT CPT-LR Lesion Removal 19:53:27 CDT CPT-OV Office Visit 11:31:28 CDT CPT-55967 Tubersol 09:39:29 CDT CPT-J2550 Phenergan 25 mg (Promethazine) 13:59:02 SEVERITY OF ILLNESS COORDINATOR CPT-J1885 Toradol 60 mg (Ketorolac) 13:59:02 SEVERITY OF ILLNESS COORDINATOR 2012
--- OUTSIDE RECORDS SUMMARY | 2019-09-29 01:56 | XMS REPORT | Clinical Summary ---
Author Author Admin, Bethany Ayala [facility] Address Unknown Phone Unavailable Allergies, Adverse [...] vulvovaginitis, unspecified Pharyngitis 462 Active Jillina Frazell [employer] Acute pharyngitis Cough 786.2 Active Jillina Frasandra [employer] Cough Pedal edema 782.3 Active Jillina Lizy [employer] Edema BREAST CANCER ICD-V16.3 Inactive Checo Joshua [...] 1 tab by mouth twice daily TRIMETHOPRIM-SULFAMETHOXAZOLE 20982710058 Active Jillina Frazell [employer] Active DIFLUCAN 150 MG TAB 1 tablet by mouth qod FLUCO NAZOLE 39282730317 No Longer Active Jillina Frazell [employer] Active CLARITIN 10 MG TAB 1 tablet by mouth daily as needed for allergies LORATADINE 09183810517 Active Efren Medel [employer] Active AZITHROMYCIN 250 MG TABS 2 po qd x 1 day, then 1 po qd x 4 days AZITHROMYCIN 02427157666 No Longer Active Efren Medel [employer] Active FLAGYL 500 MG TAB 1 tablet by mouth bid METRONI DAZOLE 09336757908 No Longer Active Checo Conklin MD Active FOCALIN XR 10 MG ORAL [id number] 1 po q a.m. DEX METHYLPHENIDATE HCL 22162880841 Active Checo Conklin MD Active MAGNESIUM CITRATE 1.745 GM/30ML ORAL SOLN 150ml po BID PRN C onstipation MAGNESIUM CITRATE 46179098060 No Longer Active Checo Conklin MD Active BACTROBAN 2 % CREAM Apply to affected area BID for up to 10 days MUPIROCIN CALCIUM 75448918911 No Longer Active Checo Conklin MD Active HYDROCODONE-ACETAMINOPHEN 5-325 MG TABS 1 tab by mouth every 6 hours as needed HYDROCODONE-ACETAMINOPHEN 12211648209 No Longer Activ e Checo Conklin MD Active IBUPROFEN 800 MG TABS 1 tab every 8 hours with food 20 31/03/21 IBUPROFEN 83651376442 No Longer Active Checo Conklin MD Activ e DIFLUCAN 150 MG TAB 1 tablet by mouth if needed, hold until symptoms start FLUCONAZOLE 76103834987 No Longer Active Checo Ortiz MD Active BACTRIM DS 800-160 MG TAB 1 tab by mouth twice daily 2 TRIMETHOPRIM-SULFAMETHOXAZOLE 10843011553 No Longer Active Corry leong LPN Active MIRALAX PACK 1 po qd PRN Constipation POLYETHYL JOEL GLYCOL 3350 33010230992 Active Checo Conklin MD Active HYDROCODONE-ACETAMINOPHEN 5-325 MG TABS 0.5 to 1 tab b y mouth every 6 hours as needed HYDROCODONE-ACETAMINOPHEN 51647144058 No Longer Active Checo Conklin MD Active ONDANSETRON [address] one tablet on tongue and allow to dissolve every 6 hours as needed for vomitting ONDANSETRO N 63355026896 No Longer Active Checo Conklin MD Active COMPRO 25 MG RECTAL SUPP insert or apply one supposit ory rectally as directed every 12 hours as needed for nausea PROCHLORPERA ZINE 39978622144 No Longer Active Checo Conklin MD Active SUMATRIPTAN SUCCINATE 100 MG ORAL TABS Take one PRN for migrane SUMATRIPTAN SUCCINATE 98805397466 No Longer Active Checo Conklin MD Active TRAVEL SICKNESS 25 MG ORAL CHEW chew and swallow one t ablet every 6 hours as needed MECLIZINE HCL 95469607982 No Longer Active Joe Conklin MD Active BUPROPION HCL ER (SR) 100 MG ORAL [id number] take one t ablet by mouth one time daily for one week then take 1 two times daily BUPROPION HCL 09818711791 No Longer Active Checo Conklin MD Activ e TERBINAFINE HCL 250 MG ORAL TABS take one table PO one time abran y TERBINAFINE HCL 61191406775 No Longer Active Checo Conklin MD Active METOCLOPRAMIDE HCL 10 MG ORAL TABS take one PO tid PRN nausea 20 29/12/14 METOCLOPRAMIDE HCL 42875120288 No Longer Active Checo Conklin MD Active DICLOFENAC SODIUM 75 MG TBEC 1 tablet by mouth twice daily P RN Knee pain DICLOFENAC SODIUM 49384661584 No Longer Active Checo Conklin MD Active LAMISIL 250 MG TAB 1 po qd TERBINAFINE HCL 548 88434950 No Longer Active Checo Conklin MD Active REGLAN 10 MG TAB 1 po TID PRN Nausea METOCLOPRA MIDE HCL 04530919775 No Longer Active Checo Conklin MD Active CELEXA 20 MG TABS 1 tablet by mouth daily CITALOPRAM HYDROBROMIDE 74323809185 No Longer Active Checo Conklin MD Activ e AZITHROMYCIN 250 MG TABS 2 po qd x 1 day, then 1 po qd x 4 days AZITHROMYCIN 82245603856 No Longer Active Checo Conklin MD Active HYDROCODONE-ACETAMINOPHEN 5-325 MG TABS 1 po q 6hr PRN Pain 2013 HYDROCODONE-ACETAMINOPHEN 17541337721 No Longer Active Lenoar Conklin MD Active PHENAZOPYRIDINE HCL 200 MG TABS take 1 tab po TID for bladder pa in PHENAZOPYRIDINE HCL 98134694411 No Longer Active Checo Joshua Active CIPRO 500 MG TAB 1 tablet by mouth twice daily CIPROFLOXACIN HCL 18100700958 No Longer Active Dangelo Rangel MD Active HYDROCODONE-ACETAMINOPHEN 5-325 MG TABS 1/2 to 1 po q 4 hour s prn cough HYDROCODONE-ACETAMINOPHEN 20877272011 No Longer Activ e Dangelo Rangel MD Active BACTRIM DS 800-160 MG TABS 1 po BID x 7 days 0 SULFAMETHOXAZOLE-TRIMETHOPRIM 35354933889 No Longer Active Checo Conklin MD Active PREDNISONE 20 MG TAB 2 tabs daily for 3 days, 1 t ab daily for 3 days, 1/2 tab daily for 2 days PREDNISONE 83514166522 No Longer Active Checo Conklin MD Active TRIAMCINOLONE ACETONIDE 0.1 % OINT Apply to affected a reas TID for up to 2 weeks TRIAMCINOLONE ACETONIDE 46528352904 No Longer A ctive Checo Conklin MD Active CEFDINIR 300 MG CAPS by mouth twice a day CEFDI JAZZY 02873685059 No Longer Active Dangelo Rangel MD Active BUPROPION HCL (SMOKING DETER) 150 MG [id number] 1 a day for 1 week then 1 twice a day BUPROPION HCL (SMOKING DETER) 32930996443 No Lo nger Active Checo Conklin MD Active SIMVASTATIN 20 MG TABS 1 po qd SIMVASTATIN 7078107963 5 Active Checo Conklin MD Active CHANTIX STARTING MONTH KARTHIK 0.5 MG X 11 & 1 MG X 42 TAB S 0.5mg daily for 3 days, then 0.5mg BID for 4 days, then 1mg BID VARENICLINE TARTRATE 12032275644 No Longer Active Checo Conklin MD Activ e XANAX 0.5 MG TABS 1 po BID PRN anxiety ALPRAZOLAM 44494246613 Active Checo Conklin MD Active CONCERTA 18 MG CR-TABS 1 po q a.m. METHYLPHENID ATE HCL 94734759501 No Longer Active Checo Conklin MD Active AMBIEN 5 MG TAB 1 po qHS PRN Insomnia ZOLPIDEM TARTRATE 94896681567 Active Checo Conklin MD Active TRAZODONE HCL 100 MG TAB 0.5 to 1 po qHS PRN Insomnia TRAZODONE HCL 77370866066 No Longer Active Checo Conklin MD Acti ve FIORICET 325-50-40 MG TAB 1 tablet by mouth four times daily as needed [id number] 36832612423 No Longer Active Checo Conklin MD Active PHENERGAN CREAM* 25mg applied to wrist q6hr PRN Nausea PHENERGAN CREAM* No Longer Active Checo Conklin MD A ctive FLONASE 50 MCG/ACT SUSP 1 spray each nostril am and hs FLUTICASONE PROPIONATE 27330238665 No Longer Active Checo Conklin MD Activ e ANTIPYRINE-BENZOCAINE 5.4-1.4 % SOLN 1-2 drops in affected ear BENZOCAINE-ANTIPYRINE 09972724007 No Longer Active Checo Conklin MD Active CEFDINIR 300 MG CAPS 1 po bid CEFDINIR 39735911 120 No Longer Active Checo Conklin MD Active PREDNISONE 20 MG TAB 2 tabs daily for 3 days, 1 t ab daily for 3 days, 1/2 tab daily for 2 days PREDNISONE 61557212736 No Longer Active Aracelis Conklin MD Active AZITHROMYCIN 250 MG TABS 2 po qd x 1 day, then 1 po qd x 4 days AZITHROMYCIN 86119421680 No Longer Active Checo Conklin MD Active PREDNISONE 20 MG TAB 2 tabs daily for 3 days, 1 t ab daily for 3 days, 1/2 tab daily for 2 days PREDNISONE 95358857602 No Longer Active Checo Conklin MD Active ZITHROMAX Z-KARTHIK 250 MG TABS 2 today, then 1 daily for 4 days 201 09/18/28 AZITHROMYCIN 81969515597 No Longer Active Paul Hamlin MD Active FOCALIN XR 10 MG [id number] 1 po q a.m. D EXMETHYLPHENIDATE HCL 33572930135 No Longer Active Paul Hamlin MD Activ e PERCOCET 10-325 MG TABS 1 tablet every 6 hours as needed for pain OXYCODONE-ACETAMINOPHEN 49420291291 No Longer Active Paul Hamlin MD Active LORTAB 5 5-500 MG TABS 1/2 to 1 tablet by mouth flaquito ry 4 hours as needed for pain HYDROCODONE-ACETAMINOPHEN 41529828481 No Longer Active Checo Conklin MD Active FOCALIN XR 15 MG [id number] 1 po q a.m. D EXMETHYLPHENIDATE HCL 27935559422 No Longer Active Checo Conklin MD Activ e ZOFRAN ODT 4 MG TBDP 1 po q6hr PRN Nausea ONDAN SETRON 19190032156 No Longer Active Checo Conklin MD Active PERCOCET 5-325 MG TABS 1 tablet by mouth every 6 hours as needed OXYCODONE-ACETAMINOPHEN 03125534661 No Longer Active Checo Conklin MD Active PYRIDIUM 200 MG TABS take 1 tab po TID prn urinary pain. 0 PHENAZOPYRIDINE HCL 80379337834 No Longer Active Checo Conklin MD Active FLUCONAZOLE 150 MG TABS take 1 tab po qday once 04/06 FLUCONAZOLE 33349926283 No Longer Active Dangelo Rangel MD Acti ve CIPRO 500 MG TAB 1 tablet by mouth twice daily CIPROFLOXACIN HCL 11345887226 No Longer Active Dangelo Rangel MD Active PYRIDIUM 200 MG TABS take 1 tab po TID prn urinary pain. 0 PYRIDIUM 200 MG TABS 4369914 PHENAZOPYRIDINE HCL Inactive PERCOCET 5-325 MG TABS 1 tablet by mouth every 6 hours as needed PERCOCET 5-325 MG TABS 1711421 OXYCODONE-ACETAMINOPHEN I nactive ZOFRAN ODT 4 MG TBDP 1 po q6hr PRN Nausea ZOFRAN ODT 4 MG TBDP 665831 ONDANSETRON Inactive FOCALIN XR 15 MG [id number] 1 po q a.m. F OCALIN XR 15 MG [id number] DEXMETHYLPHENIDATE HCL Inactive LORTAB 5 5-500 MG TABS 1/2 to 1 tablet by mouth flaquito ry 4 hours as needed for pain LORTAB 5 5-500 MG TABS HYDROCODONE-A CETAMINOPHEN Inactive PERCOCET 10-325 MG TABS 1 tablet every 6 hours as needed for pain PERCOCET 10-325 MG TABS 6955672 OXYCODONE-ACETAMINOPHEN Inactive FOCALIN XR 10 MG [id number] 1 po q a.m. F OCALIN XR 10 MG VL05G-CAR DEXMETHYLPHENIDATE HCL Inactive CEFDINIR 300 MG CAPS 1 po bid CEFDINIR 300 MG CAPS 20 0346 CEFDINIR Inactive ANTIPYRINE-BENZOCAINE 5.4-1.4 % SOLN 1-2 drops in affected ear ANTIPYRINE-BENZOCAINE 5.4-1.4 % SOLN 409026 BENZOCAINE-ANTIPYRINE I nactive FLONASE 50 MCG/ACT SUSP 1 spray each nostril am and hs FLONASE 50 MCG/ACT SUSP 481723 FLUTICASONE PROPIONATE Inactive PHENERGAN CREAM* 25mg applied to wrist q6hr PRN Nausea PHENERGAN CREAM* Inactive FIORICET 325-50-40 MG TAB 1 tablet by mouth four times daily as needed FIORICET 325-50-40 MG TAB ACETAMINOPHEN-C AFF-BUTALBITAL Inactive TRAZODONE HCL 100 MG TAB 0.5 to 1 po qHS PRN Insomnia TRAZODONE HCL 100 MG TAB 758592 TRAZODONE HCL Inactive CONCERTA 18 MG CR-TABS [...] s prn cough HYDROCODONE-ACETAMINOPHEN 5-325 MG TABS 692120 HYDROCODONE-ACETAMINOPHEN Inactive PHENAZOPYRIDINE HCL 200 MG TABS take 1 tab po TID for bladder pa in PHENAZOPYRIDINE HCL 200 MG TABS 9343873 PHENAZOPYRIDINE HCL Inactive HYDROCODONE-ACETAMINOPHEN 5-325 MG TABS 1 po q 6hr PRN Pain 2013 HYDROCODONE-ACETAMINOPHEN 5-325 MG TABS 276602 HYDROCODONE-ACETAMINOPHEN Inactive CELEXA 20 MG TABS 1 tablet by mouth daily CELEXA 20 MG TABS 533539 CITALOPRAM HYDROBROMIDE Inactive REGLAN 10 MG TAB 1 po TID PRN Nausea REGLAN 10 MG TAB 991448 METOCLOPRAMIDE HCL Inactive LAMISIL 250 MG TAB 1 po qd LAMISIL 250 MG TAB 409993 TERBINAFINE HCL Inactive DICLOFENAC SODIUM 75 MG TBEC 1 tablet by mouth twice daily P RN Knee pain DICLOFENAC SODIUM 75 MG TBEC 899555 DICLOFENAC S ODIUM Inactive METOCLOPRAMIDE HCL 10 MG ORAL TABS take one PO tid PRN nausea 20 29/12/14 METOCLOPRAMIDE HCL 10 MG ORAL TABS 711127 METOCLOPRAMID E HCL Inactive TERBINAFINE HCL 250 MG ORAL TABS take one table PO one time abran y TERBINAFINE HCL 250 MG ORAL TABS 822302 TERBINAFINE HCL Inactive BUPROPION HCL ER (SR) 100 MG ORAL [id number] take one t ablet by mouth one time daily for one week then take 1 two times daily BUPROPION HCL ER (SR) 100 MG ORAL [id number] BUPROPION HCL Inacti ve TRAVEL SICKNESS 25 MG ORAL CHEW chew and swallow one t ablet every 6 hours as needed TRAVEL SICKNESS 25 MG ORAL CHEW 069253 MECLIZINE HCL Inactive SUMATRIPTAN SUCCINATE 100 MG ORAL TABS Take one PRN for migrane SUMATRIPTAN SUCCINATE 100 MG ORAL TABS 817810 SUMATRIPT AN SUCCINATE Inactive COMPRO 25 MG RECTAL SUPP insert or apply one supposit ory rectally as directed every 12 hours as needed for nausea COMP RO 25 MG RECTAL SUPP 422868 PROCHLORPERAZINE Inactive ONDANSETRON [address] one tablet on tongue and allow to dissolve every 6 hours as needed for vomitting ON DANSETRON 8 MG ORAL TBDP 006912 ONDANSETRON Inactive HYDROCODONE-ACETAMINOPHEN 5-325 MG TABS 0.5 to 1 tab b y mouth every 6 hours as needed HYDROCODONE-ACETAMINOPHEN 5-325 MG TABS 8 21980 HYDROCODONE-ACETAMINOPHEN Inactive BACTRIM DS 800-160 MG TAB 1 tab by mouth twice daily 2 BACTRIM DS 800-160 MG TAB 021101 TRIMETHOPRIM-SULFAMETHOXAZOLE Inac tive DIFLUCAN 150 MG TAB 1 tablet by mouth if needed, hold until symptoms start DIFLUCAN 150 MG TAB 048181 FLUCONAZOLE Inactive IBUPROFEN 800 MG TABS 1 tab every 8 hours with food 31/03/21 IBUPROFEN 800 MG TABS 800544 IBUPROFEN Inactive HYDROCODONE-ACETAMINOPHEN 5-325 MG TABS 1 tab by mouth every 6 hours as needed HYDROCODONE-ACETAMINOPHEN 5-325 MG TABS 476635 HYDROCODONE-ACETAMINOPHEN Inactive BACTROBAN 2 % CREAM Apply to affected area BID for up to 10 days BACTROBAN 2 % CREAM 052746 MUPIROCIN CALCIUM Inactive MAGNESIUM CITRATE 1.745 GM/30ML ORAL SOLN 150ml po BID PRN C onstipation MAGNESIUM CITRATE 1.745 GM/30ML ORAL SOLN 077417 0 MAGNESIUM CITRATE Inactive DIFLUCAN 150 MG TAB 1 tablet by mouth qod DIFLUCAN 150 MG TAB 107790 FLUCONAZOLE Inactive CIPRO 500 MG TAB 1 tablet by mouth twice daily CIPRO 500 MG TAB 357673 CIPROFLOXACIN HCL Inactive FLUCONAZOLE 150 MG TABS take 1 tab po qday once 04/06 FLUCONAZOLE 150 MG TABS 050436 FLUCONAZOLE Inactive ZITHROMAX Z-KARTHIK 250 MG TABS 2 today, then 1 daily for 4 days 201 09/18/28 ZITHROMAX Z-KARTHIK 250 MG TABS 6601644 AZITHROMYCIN Inac tive PREDNISONE 20 MG TAB 2 tabs daily for 3 days, 1 t ab daily for 3 days, 1/2 tab daily for 2 days PREDNISONE 20 MG TAB 185631 PREDNISON E Inactive AZITHROMYCIN 250 MG TABS 2 po qd x 1 day, then 1 po qd x 4 days AZITHROMYCIN 250 MG TABS 2760087 AZITHROMYCIN Inactiv e PREDNISONE 20 MG TAB 2 tabs daily for 3 days, 1 t ab daily for 3 days, 1/2 tab daily for 2 days PREDNISONE 20 MG TAB 437198 PREDNISON E Inactive CEFDINIR 300 MG CAPS by mouth twice a day CEFDINIR 300 MG CAPS 761604 CEFDINIR Inactive TRIAMCINOLONE ACETONIDE 0.1 % OINT Apply to affected a reas TID for up to 2 weeks TRIAMCINOLONE ACETONIDE 0.1 % OINT 595852 6 TRIAMCINOLONE ACETONIDE Inactive PREDNISONE 20 MG TAB 2 tabs daily for 3 days, 1 t ab daily for 3 days, 1/2 tab daily for 2 days PREDNISONE 20 MG TAB 115141 PREDNISON E Inactive BACTRIM DS 800-160 MG TABS 1 po BID x 7 days 0 BACTRIM DS 800-160 MG TABS 179049 SULFAMETHOXAZOLE-TRIMETHOPRIM Inactive CIPRO 500 MG TAB 1 tablet by mouth twice daily CIPRO 500 MG TAB 782766 CIPROFLOXACIN HCL Inactive AZITHROMYCIN 250 MG TABS 2 po qd x 1 day, then 1 po qd x 4 days AZITHROMYCIN 250 MG TABS 1281824 AZITHROMYCIN Inactiv e FLAGYL 500 MG TAB 1 tablet by mouth bid FLAGYL 500 MG TAB 734116 METRONIDAZOLE Inactive AZITHROMYCIN 250 MG TABS 2 po qd x 1 day, then 1 po qd x 4 days AZITHROMYCIN 250 MG TABS 0323830 AZITHROMYCIN Inactiv e Immunizations Vaccine Administration Date [...] ... - Chemistry sodium, serum 141 mmol/L 008-802 6575/01/26 carbon dioxide, venous blood 30.0 mmol/L 21.0-32 .0 potassium, serum 4.0 mmol/L 3.5-5.2 chloride, serum 105 mmol/L 98-107 blood glucose 85 mg/dL 65-110 urea nitrogen, blood 9 mg/dL 7-18 creatinine, serum 0.66 mg/dL 0.55-1.30 alanine aminotransferase (SGPT), serum 31 U/L 12-78 aspartate aminotransferase (SGOT), serum 21 U/L 15-37 calcium, serum 8.2 mg/dL 8.5-10.1 bilirubin, serum, total 1.10 mg/dL 0.00-1.00 cholesterol, serum 178 mg/dL 435-579 3229/01/26 triglyceride, serum, fasting 149 mg/dL 30-200 HDL [...] ... - Chemistry sodium, serum 137 mmol/L 744-860 6858/05/27 carbon dioxide, venous blood 29.1 mmol/L 21.0-32 [...] 5.0-8.5 Encounters Code Encounter Date Provider Facility CPT-49625 Level 3 Est. Patient 09:15:34 CDT Efren almendarez [facility] CPT-20283 Level 3 Est. Patient 11:28:51 [employer] PROFESSIONAL Efren almendarez [facility] CPT-78750 Level 4 Est. Patient 13:55:46 [employer] PROFESSIONAL Checo Conklin MD [facility] CPT-04689 Level 4 Est. Patient 17:10:53 CDT Checo Conklin MD [facility] CPT-77733 Level 3 Est. Patient 15:56:22 CDT Checo Conklin MD [facility] CPT-87067 Level 3 Est. Patient 15:29:07 CDT Checo Conklin MD [facility] CPT-81945 Level 3 Est. Patient 14:38:41 CDT Checo Conklin MD [facility] CPT-57275 Level 3 Est. Patient 15:22:03 [employer] PROFESSIONAL Thomas reynolds DO [facility] CPT-87305 Level 3 Est. Patient 13:34:17 [employer] PROFESSIONAL Checo Conklin MD [facility] CPT-44447 Level 3 Est. Patient 12:29:32 CDT Dangelo arroyo MD [facility] CPT-37091 Level 3 Est. Patient 16:53:02 CDT Checo Conklin MD [facility] CPT-42367 Level 3 Est. Patient 16:37:13 CDT Checo Conklin MD [facility] CPT-61715 Level 3 Est. Patient 16:16:59 CDT Paul Hamlin MD [facility] CPT-73811 Level 3 Est. Patient 14:20:13 CDT Dangelo arroyo MD [facility] CPT-07143 Level 4 Est. Patient 11:29:33 CDT Checo Conklin MD [facility] CPT-35901 Level 3 Est. Patient 17:08:31 CDT Checo Conklin MD [facility] CPT-73473 Level 3 Est. Patient 16:50:42 [employer] PROFESSIONAL Checo Conklin MD [facility] CPT-30475 Level 4 Est. Patient 09:26:08 REAL [employer] PROFESSIONAL Checo Conklin MD [facility] CPT-78879 Level 3 Est. Patient 11:37:10 CDT Checo Conklin MD [facility] CPT-57445 Level 4 Est. Patient 14:07:38 CDT Checo Conklin MD [facility] CPT-50515 Level 3 Est. Patient 09:54:41 CDT Checo Conklin MD [facility] CPT-49601 Level 3 Est. Patient 11:10:54 CDT Paul Hamlin MD [facility] CPT-59772 Level 3 Est. Patient 14:16:56 [employer] PROFESSIONAL Checo Conklin MD [facility] CPT-10771 Level 3 Est. Patient 11:04:11 REAL [employer] PROFESSIONAL Checo Conklin MD [facility] CPT-72951 Level 3 Est. Patient 17:09:26 CDT Dangelo arroyo MD [facility] CPT-82294 Level 3 Est. Patient 16:54:37 CDT Checo Conklin MD [facility] Procedures Code Procedure Name Date Entry Date Standard Desc ription CPT-OV Office Visit 11:31:28 CDT CPT-18808 Tubersol 09:39:29 CDT CPT-J2550 Phenergan 25 mg (Promethazine) 13:59:02 [employer] PROFESSION[employer] CPT-J1885 Toradol 60 mg (Ketorolac) 13:59:02 [employer] PROFESSIONAL 2012
--- OUTSIDE RECORDS SUMMARY | 2019-09-29 01:56 | XMS REPORT | Clinical Summary ---
Author Author Admin, Bethany Gonzales Organization [employer] Address Unknown Phone Unavailable Allergies, Adverse Reactions, [...] Sinusitis, acute ICD-461.9 Inactive Checo Ortiz MD Cough ICD-786.2 Inactive Checo Conklin MD 2016 Pharyngitis ICD-462 Inactive Checo Conklin MD Medication List Medication Instructions Start Date Stop Date Generic Name NDC Status Provider Patient Instruction PAROXETINE HCL 20 MG ORAL TABS 1.5 po qd PAROX ETINE HCL 18268545651 Active Checo Conklin MD Active FLUTICASONE PROPIONATE 50 MCG/ACT NASAL SUSP 2 sprays/ nostril qd PRN Congestion/Allergies FLUTICASONE PROPIONATE 8134474151 5 No Longer Active Checo Conklin MD Active AMOXICILLIN 500 MG ORAL CAPS 2 po BID x 10 days 09/12 AMOXICILLIN 36279277560 No Longer Active Checo Conklin MD Activ e MIRALAX ORAL POWD 8.5 to 17g po qd PRN Constipation POLYETHYLENE GLYCOL 3350 62650713215 Active Checo Conklin MD Active CLARITIN 10 MG TAB 1 tablet by mouth daily as needed for allergi es LORATADINE 37201274760 No Longer Active Checo Conklin MD Active BACTRIM DS 800-160 MG TAB 1 tab by mouth twice daily 2 TRIMETHOPRIM-SULFAMETHOXAZOLE 12053030294 No Longer Active Tanner Carrillo MD Active DIFLUCAN 150 MG TAB 1 tablet by mouth qod FLUCO NAZOLE 26022859242 No Longer Active Efren Medel APRN Active AZITHROMYCIN 250 MG TABS 2 po qd x 1 day, then 1 po qd x 4 days AZITHROMYCIN 13644598133 No Longer Active Efren Medel APRN Active FLAGYL 500 MG TAB 1 tablet by mouth bid METRONI DAZOLE 17573143436 No Longer Active Checo Conklin MD Active FOCALIN XR 10 MG ORAL [id number] 1 po q a.m. DEX METHYLPHENIDATE HCL 07861459519 Active Checo Conklin MD Active MAGNESIUM CITRATE 1.745 GM/30ML ORAL SOLN 150ml po BID PRN C onstipation MAGNESIUM CITRATE 86568256787 No Longer Active Checo Conklin MD Active BACTROBAN 2 % CREAM Apply to affected area BID for up to 10 days MUPIROCIN CALCIUM 80273839078 No Longer Active Checo Conklin MD Active HYDROCODONE-ACETAMINOPHEN 5-325 MG TABS 1 tab by mouth every 6 hours as needed HYDROCODONE-ACETAMINOPHEN 83757182013 No Longer Activ e Checo Conklin MD Active IBUPROFEN 800 MG TABS 1 tab every 8 hours with food 20 31/03/21 IBUPROFEN 98893674215 No Longer Active Checo Conklin MD Activ e DIFLUCAN 150 MG TAB 1 tablet by mouth if needed, hold until symptoms start FLUCONAZOLE 43012181468 No Longer Active Checo Ortiz MD Active BACTRIM DS 800-160 MG TAB 1 tab by mouth twice daily 2 TRIMETHOPRIM-SULFAMETHOXAZOLE 96113913098 No Longer Active Corry leong LPN Active HYDROCODONE-ACETAMINOPHEN 5-325 MG TABS 0.5 to 1 tab b y mouth every 6 hours as needed HYDROCODONE-ACETAMINOPHEN 13254415236 No Longer Active Checo Conklin MD Active ONDANSETRON [address] one tablet on tongue and allow to dissolve every 6 hours as needed for vomitting ONDANSETRO N 95634064654 No Longer Active Checo Conklin MD Active COMPRO 25 MG RECTAL SUPP insert or apply one supposit ory rectally as directed every 12 hours as needed for nausea PROCHLORPERA ZINE 95405410677 No Longer Active Checo Conklin MD Active SUMATRIPTAN SUCCINATE 100 MG ORAL TABS Take one PRN for migrane SUMATRIPTAN SUCCINATE 57183896969 No Longer Active Checo Conklin MD Active TRAVEL SICKNESS 25 MG ORAL CHEW chew and swallow one t ablet every 6 hours as needed MECLIZINE HCL 14185630606 No Longer Active Joe Conklin MD Active BUPROPION HCL ER (SR) 100 MG ORAL [id number] take one t ablet by mouth one time daily for one week then take 1 two times daily BUPROPION HCL 97893329538 No Longer Active Checo Conklin MD Activ e TERBINAFINE HCL 250 MG ORAL TABS take one table PO one time abran y TERBINAFINE HCL 61258819831 No Longer Active Checo Conklin MD Active METOCLOPRAMIDE HCL 10 MG ORAL TABS take one PO tid PRN nausea 20 29/12/14 METOCLOPRAMIDE HCL 12964268577 No Longer Active Checo Conklin MD Active DICLOFENAC SODIUM 75 MG TBEC 1 tablet by mouth twice daily P RN Knee pain DICLOFENAC SODIUM 32371952133 No Longer Active Checo Conklin MD Active LAMISIL 250 MG TAB 1 po qd TERBINAFINE HCL 548 16797886 No Longer Active Checo Conklin MD Active REGLAN 10 MG TAB 1 po TID PRN Nausea METOCLOPRA MIDE HCL 39072824378 No Longer Active Checo Conklin MD Active CELEXA 20 MG TABS 1 tablet by mouth daily CITALOPRAM HYDROBROMIDE 34102983114 No Longer Active Checo Conklin MD Activ e AZITHROMYCIN 250 MG TABS 2 po qd x 1 day, then 1 po qd x 4 days AZITHROMYCIN 87813608233 No Longer Active Checo Conklin MD Active HYDROCODONE-ACETAMINOPHEN 5-325 MG TABS 1 po q 6hr PRN Pain 2013 HYDROCODONE-ACETAMINOPHEN 42866511896 No Longer Active Lenora Conklin MD Active PHENAZOPYRIDINE HCL 200 MG TABS take 1 tab po TID for bladder pa in PHENAZOPYRIDINE HCL 50880737404 No Longer Active Checo Joshua Active CIPRO 500 MG TAB 1 tablet by mouth twice daily CIPROFLOXACIN HCL 78176040431 No Longer Active Dangelo Rangel MD Active HYDROCODONE-ACETAMINOPHEN 5-325 MG TABS 1/2 to 1 po q 4 hour s prn cough HYDROCODONE-ACETAMINOPHEN 60518771605 No Longer Activ e Dangelo Rangel MD Active BACTRIM DS 800-160 MG TABS 1 po BID x 7 days 0 SULFAMETHOXAZOLE-TRIMETHOPRIM 27046403301 No Longer Active Checo Conklin MD Active PREDNISONE 20 MG TAB 2 tabs daily for 3 days, 1 t ab daily for 3 days, 1/2 tab daily for 2 days PREDNISONE 35491310494 No Longer Active Checo Conklin MD Active TRIAMCINOLONE ACETONIDE 0.1 % OINT Apply to affected a reas TID for up to 2 weeks TRIAMCINOLONE ACETONIDE 10185220670 No Longer A ctive Checo Conklin MD Active CEFDINIR 300 MG CAPS by mouth twice a day CEFDI JAZZY 28411155613 No Longer Active Dangelo Rangel MD Active BUPROPION HCL (SMOKING DETER) 150 MG [id number] 1 a day for 1 week then 1 twice a day BUPROPION HCL (SMOKING DETER) 12608332724 No Lo nger Active Checo Conklin MD Active SIMVASTATIN 20 MG TABS 1 po qd SIMVASTATIN 9820561941 5 Active Checo Conklin MD Active CHANTIX STARTING MONTH KARTHIK 0.5 MG X 11 & 1 MG X 42 TAB S 0.5mg daily for 3 days, then 0.5mg BID for 4 days, then 1mg BID VARENICLINE TARTRATE 42884312770 No Longer Active Checo Conklin MD Activ e XANAX 0.5 MG TABS 1 po BID PRN anxiety ALPRAZOLAM 13974784099 Active Checo Conklin MD Active CONCERTA 18 MG CR-TABS 1 po q a.m. METHYLPHENID ATE HCL 82763326964 No Longer Active Checo Conklin MD Active AMBIEN 5 MG TAB 1 po qHS PRN Insomnia ZOLPIDEM TARTRATE 87693253689 Active Checo Conklin MD Active TRAZODONE HCL 100 MG TAB 0.5 to 1 po qHS PRN Insomnia TRAZODONE HCL 18828056858 No Longer Active Checo Conklin MD Acti ve FIORICET 325-50-40 MG TAB 1 tablet by mouth four times daily as needed [id number] 64943138226 No Longer Active Checo Conklin MD Active PHENERGAN CREAM* 25mg applied to wrist q6hr PRN Nausea PHENERGAN CREAM* No Longer Active Checo Conklin MD A ctive FLONASE 50 MCG/ACT SUSP 1 spray each nostril am and hs FLUTICASONE PROPIONATE 11574717246 No Longer Active Checo Conklin MD Activ e ANTIPYRINE-BENZOCAINE 5.4-1.4 % SOLN 1-2 drops in affected ear BENZOCAINE-ANTIPYRINE 23895007438 No Longer Active Checo Conklin MD Active CEFDINIR 300 MG CAPS 1 po bid CEFDINIR 45297905 120 No Longer Active Checo Conklin MD Active PREDNISONE 20 MG TAB 2 tabs daily for 3 days, 1 t ab daily for 3 days, 1/2 tab daily for 2 days PREDNISONE 23771802669 No Longer Active Aracelis Conklin MD Active AZITHROMYCIN 250 MG TABS 2 po qd x 1 day, then 1 po qd x 4 days AZITHROMYCIN 97446905016 No Longer Active Checo Conklin MD Active PREDNISONE 20 MG TAB 2 tabs daily for 3 days, 1 t ab daily for 3 days, 1/2 tab daily for 2 days PREDNISONE 62474410682 No Longer Active Checo Conklin MD Active ZITHROMAX Z-KARTHIK 250 MG TABS 2 today, then 1 daily for 4 days 201 09/18/28 AZITHROMYCIN 52633473405 No Longer Active Paul Hamlin MD Active FOCALIN XR 10 MG [id number] 1 po q a.m. D EXMETHYLPHENIDATE HCL 76537698216 No Longer Active Paul Hamlin MD Activ e PERCOCET 10-325 MG TABS 1 tablet every 6 hours as needed for pain OXYCODONE-ACETAMINOPHEN 26959280319 No Longer Active Paul Hamlin MD Active LORTAB 5 5-500 MG TABS 1/2 to 1 tablet by mouth flaquito ry 4 hours as needed for pain HYDROCODONE-ACETAMINOPHEN 48642497085 No Longer Active Checo Conklin MD Active FOCALIN XR 15 MG [id number] 1 po q a.m. D EXMETHYLPHENIDATE HCL 83790693098 No Longer Active Checo Conklin MD Activ e ZOFRAN ODT 4 MG TBDP 1 po q6hr PRN Nausea ONDAN SETRON 83510417178 No Longer Active Checo Conklin MD Active PERCOCET 5-325 MG TABS 1 tablet by mouth every 6 hours as needed OXYCODONE-ACETAMINOPHEN 61098019683 No Longer Active Checo Conklin MD Active PYRIDIUM 200 MG TABS take 1 tab po TID prn urinary pain. 0 PHENAZOPYRIDINE HCL 48942588693 No Longer Active Checo Conklin MD Active FLUCONAZOLE 150 MG TABS take 1 tab po qday once 04/06 FLUCONAZOLE 04041348550 No Longer Active Dangelo Rangel MD Acti ve CIPRO 500 MG TAB 1 tablet by mouth twice daily CIPROFLOXACIN HCL 18682744437 No Longer Active Dangelo Rangel MD Active PYRIDIUM 200 MG TABS take 1 tab po TID prn urinary pain. 0 PYRIDIUM 200 MG TABS 3669819 PHENAZOPYRIDINE HCL Inactive PERCOCET 5-325 MG TABS 1 tablet by mouth every 6 hours as needed PERCOCET 5-325 MG TABS 9770632 OXYCODONE-ACETAMINOPHEN I nactive ZOFRAN ODT 4 MG TBDP 1 po q6hr PRN Nausea ZOFRAN ODT 4 MG TBDP 602825 ONDANSETRON Inactive FOCALIN XR 15 MG [id number] 1 po q a.m. F OCALIN XR 15 MG [id number] DEXMETHYLPHENIDATE HCL Inactive LORTAB 5 5-500 MG TABS 1/2 to 1 tablet by mouth flaquito ry 4 hours as needed for pain LORTAB 5 5-500 MG TABS HYDROCODONE-A CETAMINOPHEN Inactive PERCOCET 10-325 MG TABS 1 tablet every 6 hours as needed for pain PERCOCET 10-325 MG TABS 7981496 OXYCODONE-ACETAMINOPHEN Inactive FOCALIN XR 10 MG [id number] 1 po q a.m. F OCALIN XR 10 MG [id number] DEXMETHYLPHENIDATE HCL Inactive CEFDINIR 300 MG CAPS [...] PRN Insomnia TRAZODONE HCL 100 MG TAB 789593 TRAZODONE HCL Inactive CONCERTA 18 MG CR-TABS [...] s prn cough HYDROCODONE-ACETAMINOPHEN 5-325 MG TABS 466901 HYDROCODONE-ACETAMINOPHEN Inactive PHENAZOPYRIDINE HCL 200 MG TABS take 1 tab po TID for bladder pa in PHENAZOPYRIDINE HCL 200 MG TABS 5294876 PHENAZOPYRIDINE HCL Inactive HYDROCODONE-ACETAMINOPHEN 5-325 MG TABS 1 po q 6hr PRN Pain 2013 HYDROCODONE-ACETAMINOPHEN 5-325 MG TABS 593522 HYDROCODONE-ACETAMINOPHEN Inactive CELEXA 20 MG TABS 1 tablet by mouth daily CELEXA 20 MG TABS 488511 CITALOPRAM HYDROBROMIDE Inactive REGLAN 10 MG TAB 1 po TID PRN Nausea REGLAN 10 MG TAB 796320 METOCLOPRAMIDE HCL Inactive LAMISIL 250 MG TAB 1 po qd LAMISIL 250 MG TAB 708664 TERBINAFINE HCL Inactive DICLOFENAC SODIUM 75 MG TBEC 1 tablet by mouth twice daily P RN Knee pain DICLOFENAC SODIUM 75 MG TBEC 795146 DICLOFENAC S ODIUM Inactive METOCLOPRAMIDE HCL 10 MG ORAL TABS take one PO tid PRN nausea 20 29/12/14 METOCLOPRAMIDE HCL 10 MG ORAL TABS 438018 METOCLOPRAMID E HCL Inactive TERBINAFINE HCL 250 MG ORAL TABS take one table PO one time abran y TERBINAFINE HCL 250 MG ORAL TABS 305322 TERBINAFINE HCL Inactive BUPROPION HCL ER (SR) 100 MG ORAL [id number] take one t ablet by mouth one time daily for one week then take 1 two times daily BUPROPION HCL ER (SR) 100 MG ORAL [id number] BUPROPION HCL Inacti ve TRAVEL SICKNESS 25 MG ORAL CHEW chew and swallow one t ablet every 6 hours as needed TRAVEL SICKNESS 25 MG ORAL CHEW 923742 MECLIZINE HCL Inactive SUMATRIPTAN SUCCINATE 100 MG ORAL TABS Take one PRN for migrane SUMATRIPTAN SUCCINATE 100 MG ORAL TABS 246516 SUMATRIPT AN SUCCINATE Inactive COMPRO 25 MG RECTAL SUPP insert or apply one supposit ory rectally as directed every 12 hours as needed for nausea COMP RO 25 MG RECTAL SUPP 903914 PROCHLORPERAZINE Inactive ONDANSETRON [address] one tablet on tongue and allow to dissolve every 6 hours as needed for vomitting ON DANSETRON 8 MG ORAL TBDP 233443 ONDANSETRON Inactive HYDROCODONE-ACETAMINOPHEN 5-325 MG TABS 0.5 to 1 tab b y mouth every 6 hours as needed HYDROCODONE-ACETAMINOPHEN 5-325 MG TABS 8 49663 HYDROCODONE-ACETAMINOPHEN Inactive BACTRIM DS 800-160 MG TAB 1 tab by mouth twice daily 2 BACTRIM DS 800-160 MG TAB 359443 TRIMETHOPRIM-SULFAMETHOXAZOLE Inac tive DIFLUCAN 150 MG TAB 1 tablet by mouth if needed, hold until symptoms start DIFLUCAN 150 MG TAB 19760325 FLUCONAZOLE Inactive IBUPROFEN 800 MG TABS 1 tab every 8 hours with food 31/03/21 IBUPROFEN 800 MG TABS 468651 IBUPROFEN Inactive HYDROCODONE-ACETAMINOPHEN 5-325 MG TABS 1 tab by mouth every 6 hours as needed HYDROCODONE-ACETAMINOPHEN 5-325 MG TABS 378574 HYDROCODONE-ACETAMINOPHEN Inactive BACTROBAN 2 % CREAM Apply to affected area BID for up to 10 days BACTROBAN 2 % CREAM 351319 MUPIROCIN CALCIUM Inactive MAGNESIUM CITRATE 1.745 GM/30ML ORAL SOLN 150ml po BID PRN C onstipation MAGNESIUM CITRATE 1.745 GM/30ML ORAL SOLN 469848 0 MAGNESIUM CITRATE Inactive DIFLUCAN 150 MG TAB 1 tablet by mouth qod DIFLUCAN 150 MG TAB 081700 FLUCONAZOLE Inactive BACTRIM DS 800-160 MG TAB 1 tab by mouth twice daily 2 BACTRIM DS 800-160 MG TAB 942920 TRIMETHOPRIM-SULFAMETHOXAZOLE Inac tive CLARITIN 10 MG TAB 1 tablet by mouth daily as needed for allergi es CLARITIN 10 MG TAB 267674 LORATADINE Inactive FLUTICASONE PROPIONATE 50 MCG/ACT NASAL SUSP 2 sprays/ nostril qd PRN Congestion/Allergies FLUTICASONE PROPION ATE 50 MCG/ACT NASAL SUSP 8911016 FLUTICASONE PROPIONATE Inactive CIPRO 500 MG TAB 1 tablet by mouth twice daily CIPRO 500 MG TAB 005401 CIPROFLOXACIN HCL Inactive FLUCONAZOLE 150 MG TABS take 1 tab po qday once 04/06 FLUCONAZOLE 150 MG TABS 273465 FLUCONAZOLE Inactive ZITHROMAX Z-KARTHIK 250 MG TABS 2 today, then 1 daily for 4 days 201 09/18/28 ZITHROMAX Z-KARTHIK 250 MG TABS 8522382 AZITHROMYCIN Inac tive PREDNISONE 20 MG TAB 2 tabs daily for 3 days, 1 t ab daily for 3 days, 1/2 tab daily for 2 days PREDNISONE 20 MG TAB 201349 PREDNISON E Inactive AZITHROMYCIN 250 MG TABS 2 po qd x 1 day, then 1 po qd x 4 days AZITHROMYCIN 250 MG TABS 6844434 AZITHROMYCIN Inactiv e PREDNISONE 20 MG TAB 2 tabs daily for 3 days, 1 t ab daily for 3 days, 1/2 tab daily for 2 days PREDNISONE 20 MG TAB 671349 PREDNISON E Inactive CEFDINIR 300 MG CAPS by mouth twice a day CEFDINIR 300 MG CAPS 835054 CEFDINIR Inactive TRIAMCINOLONE ACETONIDE 0.1 % OINT Apply to affected a reas TID for up to 2 weeks TRIAMCINOLONE ACETONIDE 0.1 % OINT 430972 6 TRIAMCINOLONE ACETONIDE Inactive PREDNISONE 20 MG TAB 2 tabs daily for 3 days, 1 t ab daily for 3 days, 1/2 tab daily for 2 days PREDNISONE 20 MG TAB 352533 PREDNISON E Inactive BACTRIM DS 800-160 MG TABS 1 po BID x 7 days 0 BACTRIM DS 800-160 MG TABS 047309 SULFAMETHOXAZOLE-TRIMETHOPRIM Inactive CIPRO 500 MG TAB 1 tablet by mouth twice daily CIPRO 500 MG TAB 725540 CIPROFLOXACIN HCL Inactive AZITHROMYCIN 250 MG TABS 2 po qd x 1 day, then 1 po qd x 4 days AZITHROMYCIN 250 MG TABS 9559543 AZITHROMYCIN Inactiv e FLAGYL 500 MG TAB 1 tablet by mouth bid FLAGYL 500 MG TAB 755653 METRONIDAZOLE Inactive AZITHROMYCIN 250 MG TABS 2 po qd x 1 day, then 1 po qd x 4 days AZITHROMYCIN 250 MG TABS 3162833 AZITHROMYCIN Inactiv e AMOXICILLIN 500 MG ORAL CAPS 2 po BID x 10 days 09/12 AMOXICILLIN 500 MG ORAL CAPS 568255 AMOXICILLIN Inactive Immunizations Vaccine Administration Date Value [...] 11 .6-14.8 platelet count 248 10^3/MM^3 10*3/mm3 736-876 4285/05/27 erythrocyte (RBC) count 4.40 10^6/MM^3 10*6/mm3 4.04-5.4 8 lymphocytes as percent of blood leukocytes 25.1 % 20.5-51.1 monocytes as percent of blood leukocytes 7.6 % 1.7-9.3 neutrophils as percent of blood leukocytes 64.6 % 42.2-75.2 leukocyte count, blood 8.0 10^3/MM^3 10*3/mm3 4.6-10.2 Lab Report: CBC W/DIFF, Comp. Metabolic Panel, Qual [facility] - Chemistry sodium, serum 139 mmol/L 947-228 7496/10/21 carbon dioxide, venous blood 33.5 mmol/L 21.0-32 [...] CBC W/DIFF, Comp. Metabolic Panel, Qual [facility] - Hematology neutrophils as percent of blood [...] PANEL - Chemistry cholesterol, serum 192 mg/dL 251-091 7273/02/20 HDL cholesterol, serum 31 mg/dL > OR [...] 11 .0-15.0 platelet count 218 THOUSAND/UL 10*3/mm3 356-607 7928/02/20 mean platelet volume 9.7 fL 7.5-12.5 Lab Report: Chlamydia/GC APTIMA/[id number] - Lab chlamydia DNA probe NOT DETECTED NOT DETECTED Lab Report: Chlamydia/GC [facility]TIMA/08772 - Microbiology Neisseria gonorrhoeae DNA probe NOT DETECTED NO T DETECTED Lab Report: Comp. Metabolic Panel, Thyro id Stimulating Hormone (L), Eryt ... - Chemistry sodium, serum 137 mmol/L 311-107 0888/05/27 creatinine, serum 0.70 mg/dL 0.55-1.30 alanine aminotransferase [...] Negative Encounters Code Encounter Date Provider Facility CPT-46812 Level 3 Est. Patient 11:29:55 CDT Checo Conklin MD [facility] CPT-81979 Level 4 Est. Patient 11:08:12 ACCOUNTS PAYABLE SUPERVISOR Checo Conklin MD [facility] CPT-10668 Level 4 Est. Patient 16:06:48 ACCOUNTS PAYABLE SUPERVISOR Checo Conklin MD [facility] CPT-80218 Level 3 Est. Patient 09:11:49 CDT Efren almendarez [facility] CPT-93560 Level 2 Est. Patient 19:53:27 CDT Tanner hill MD [facility] CPT-39032 Level 3 Est. Patient 09:15:34 CDT Efren almendarez [facility] CPT-36849 Level 3 Est. Patient 11:28:51 ACCOUNTS PAYABLE SUPERVISOR Efren almendarez [facility]-10217 Level 4 Est. Patient 13:55:46 ACCOUNTS PAYABLE SUPERVISOR Checo Conklin MD [facility] CPT-23779 Level 4 Est. Patient 17:10:53 CDT Checo Conklin MD [facility] CPT-32966 Level 3 Est. Patient 15:56:22 CDT Checo Conklin MD [facility] CPT-13330 Level 3 Est. Patient 15:29:07 CDT Checo Conklin MD [facility] CPT-45654 Level 3 Est. Patient 14:38:41 CDT Checo Conklin MD [facility] CPT-74691 Level 3 Est. Patient 15:22:03 ACCOUNTS PAYABLE SUPERVISOR Thomas reynolds DO [facility] CPT-65258 Level 3 Est. Patient 13:34:17 ACCOUNTS PAYABLE SUPERVISOR Checo Conklin MD [facility] CPT-92004 Level 3 Est. Patient 12:29:32 CDT Dangelo arroyo MD [facility] CPT-20401 Level 3 Est. Patient 16:53:02 CDT Checo Conklin MD [facility] CPT-11703 Level 3 Est. Patient 16:37:13 CDT Checo Conklin MD [facility] CPT-27975 Level 3 Est. Patient 16:16:59 CDT Paul Hamlin MD [facility] CPT-72722 Level 3 Est. Patient 14:20:13 CDT Dangelo arroyo MD [facility] CPT-98309 Level 4 Est. Patient 11:29:33 CDT Checo Conklin MD [facility] CPT-59950 Level 3 Est. Patient 17:08:31 CDT Checo Conklin MD [facility] CPT-67736 Level 3 Est. Patient 16:50:42 ACCOUNTS PAYABLE SUPERVISOR Checo Conklin MD [facility] CPT-15896 Level 4 Est. Patient 09:26:08 ACCOUNTS PAYABLE SUPERVISOR Checo Conklin MD [facility] CPT-71476 Level 3 Est. Patient 11:37:10 CDT Checo Conklin MD [facility] CPT-23950 Level 4 Est. Patient 14:07:38 CDT Checo Conklin MD [facility] CPT-59761 Level 3 Est. Patient 09:54:41 CDT Checo Conklin MD [facility] CPT-18644 Level 3 Est. Patient 11:10:54 CDT Paul Hamlin MD [facility] CPT-14183 Level 3 Est. Patient 14:16:56 ACCOUNTS PAYABLE SUPERVISOR Checo Conklin MD [facility] CPT-86380 Level 3 Est. Patient 11:04:11 ACCOUNTS PAYABLE SUPERVISOR Checo Conklin MD [facility] CPT-20241 Level 3 Est. Patient 17:09:26 CDT Dangelo arroyo MD [facility] CPT-16959 Level 3 Est. Patient 16:54:37 CDT Checo Conklin MD [facility] Procedures Code Procedure Name Date Entry Date Standard Desc ription CPT-52192 UA w micro - LAB USE ONLY 17:06:46 CDT 2015 CPT-54826 [facility] Qual - LAB USE ONLY 17:06:46 CDT 05/06 CPT-91012 CMP - LAB USE ONLY 17:06:46 CDT CPT-84536 CBC with Diff - LAB USE ONLY 17:06:45 CDT 2 CPT-83787 Venipuncture Draw Fee 17:06:45 CDT CPT-LR Lesion Removal 19:53:27 CDT CPT-OV Office Visit 11:31:28 CDT CPT-24707 Tubersol 09:39:29 CDT CPT-J2550 Phenergan 25 mg (Promethazine) 13:59:02 ACCOUNTS PAYABLE SUPERVISOR CPT-J1885 Toradol 60 mg (Ketorolac) 13:59:02 ACCOUNTS PAYABLE SUPERVISOR 2012
--- OUTSIDE RECORDS SUMMARY | 2019-09-29 01:56 | XMS REPORT | Clinical Summary ---
Author Author Admin, Bethany Ayala [facility] Address Unknown Phone Unavailable Allergies, Adverse [...] state, unspecified A D D 314.00 Inactive Chceo Conklin MD Attention deficit disorder of childhood [...] TABS 1.5 po qd PAROX ETINE HCL 26963977678 Active Checo Conklin MD Active FLUTICASONE PROPIONATE 50 MCG/ACT NASAL SUSP 2 sprays/ nostril qd PRN Congestion/Allergies FLUTICASONE PROPIONATE 6423870143 5 No Longer Active Checo Conklin MD Active AMOXICILLIN 500 MG ORAL CAPS 2 po BID x 10 days 09/12 AMOXICILLIN 22775625571 No Longer Active Checo Conklin MD Activ e MIRALAX ORAL POWD 8.5 to 17g po qd PRN Constipation POLYETHYLENE GLYCOL 3350 90320379101 Active Checo Conklin MD Active CLARITIN 10 MG TAB 1 tablet by mouth daily as needed for allergi es LORATADINE 05460064955 No Longer Active Checo Conklin MD Active BACTRIM DS 800-160 MG TAB 1 tab by mouth twice daily 2 TRIMETHOPRIM-SULFAMETHOXAZOLE 68632629038 No Longer Active Tanner Carrillo MD Active DIFLUCAN 150 MG TAB 1 tablet by mouth qod FLUCO NAZOLE 02402899469 No Longer Active Jillina Frazell PROFESSOR OF GENETICS Active AZITHROMYCIN 250 MG TABS 2 po qd x 1 day, then 1 po qd x 4 days AZITHROMYCIN 39767846324 No Longer Active Americomarine Medel APRN Active FLAGYL 500 MG TAB 1 tablet by mouth bid METRONI DAZOLE 15219916998 No Longer Active Checo Conklin MD Active FOCALIN XR 10 MG ORAL [id number] 1 po q a.m. DEX METHYLPHENIDATE HCL 64323694267 Active Checo Conklin MD Active MAGNESIUM CITRATE 1.745 GM/30ML ORAL SOLN 150ml po BID PRN C onstipation MAGNESIUM CITRATE 10983424304 No Longer Active Checo Conklin MD Active BACTROBAN 2 % CREAM Apply to affected area BID for up to 10 days MUPIROCIN CALCIUM 86316679903 No Longer Active Checo Conklin MD Active HYDROCODONE-ACETAMINOPHEN 5-325 MG TABS 1 tab by mouth every 6 hours as needed HYDROCODONE-ACETAMINOPHEN 04353042646 No Longer Activ e Checo Conklin MD Active IBUPROFEN 800 MG TABS 1 tab every 8 hours with food 20 31/03/21 IBUPROFEN 22390046362 No Longer Active Checo Conklin MD Activ e DIFLUCAN 150 MG TAB 1 tablet by mouth if needed, hold until symptoms start FLUCONAZOLE 24706775817 No Longer Active Checo Ortiz MD Active BACTRIM DS 800-160 MG TAB 1 tab by mouth twice daily 2 TRIMETHOPRIM-SULFAMETHOXAZOLE 91153722772 No Longer Active Corry leong LPN Active HYDROCODONE-ACETAMINOPHEN 5-325 MG TABS 0.5 to 1 tab b y mouth every 6 hours as needed HYDROCODONE-ACETAMINOPHEN 43526473462 No Longer Active Checo Conklin MD Active ONDANSETRON [address] one tablet on tongue and allow to dissolve every 6 hours as needed for vomitting ONDANSETRO N 91573492858 No Longer Active Checo Conklin MD Active COMPRO 25 MG RECTAL SUPP insert or apply one supposit ory rectally as directed every 12 hours as needed for nausea PROCHLORPERA ZINE 11077536741 No Longer Active Checo Conklin MD Active SUMATRIPTAN SUCCINATE 100 MG ORAL TABS Take one PRN for migrane SUMATRIPTAN SUCCINATE 36259382837 No Longer Active Checo Conklin MD Active TRAVEL SICKNESS 25 MG ORAL CHEW chew and swallow one t ablet every 6 hours as needed MECLIZINE HCL 44044443895 No Longer Active Joe Conklin MD Active BUPROPION HCL ER (SR) 100 MG ORAL [id number] take one t ablet by mouth one time daily for one week then take 1 two times daily BUPROPION HCL 77084223909 No Longer Active Checo Conklin MD Activ e TERBINAFINE HCL 250 MG ORAL TABS take one table PO one time abran y TERBINAFINE HCL 85953000873 No Longer Active Checo Conklin MD Active METOCLOPRAMIDE HCL 10 MG ORAL TABS take one PO tid PRN nausea 20 29/12/14 METOCLOPRAMIDE HCL 21399794687 No Longer Active Checo Conklin MD Active DICLOFENAC SODIUM 75 MG TBEC 1 tablet by mouth twice daily P RN Knee pain DICLOFENAC SODIUM 98614986320 No Longer Active Checo Conklin MD Active LAMISIL 250 MG TAB 1 po qd TERBINAFINE HCL 548 71874082 No Longer Active Checo Conklin MD Active REGLAN 10 MG TAB 1 po TID PRN Nausea METOCLOPRA MIDE HCL 77487147308 No Longer Active Checo Conklin MD Active CELEXA 20 MG TABS 1 tablet by mouth daily CITALOPRAM HYDROBROMIDE 89301025870 No Longer Active Checo Conklin MD Activ e AZITHROMYCIN 250 MG TABS 2 po qd x 1 day, then 1 po qd x 4 days AZITHROMYCIN 95353032260 No Longer Active Checo Conklin MD Active HYDROCODONE-ACETAMINOPHEN 5-325 MG TABS 1 po q 6hr PRN Pain 2013 HYDROCODONE-ACETAMINOPHEN 88814532379 No Longer Active Lenora Conklin MD Active PHENAZOPYRIDINE HCL 200 MG TABS take 1 tab po TID for bladder pa in PHENAZOPYRIDINE HCL 32391139184 No Longer Active Checo Joshua Active CIPRO 500 MG TAB 1 tablet by mouth twice daily CIPROFLOXACIN HCL 96866618470 No Longer Active Dangelo Rangel MD Active HYDROCODONE-ACETAMINOPHEN 5-325 MG TABS 1/2 to 1 po q 4 hour s prn cough HYDROCODONE-ACETAMINOPHEN 16634656015 No Longer Activ e Dangelo Rangel MD Active BACTRIM DS 800-160 MG TABS 1 po BID x 7 days 0 SULFAMETHOXAZOLE-TRIMETHOPRIM 06620918849 No Longer Active Checo Conklin MD Active PREDNISONE 20 MG TAB 2 tabs daily for 3 days, 1 t ab daily for 3 days, 1/2 tab daily for 2 days PREDNISONE 39021585034 No Longer Active Checo Conklin MD Active TRIAMCINOLONE ACETONIDE 0.1 % OINT Apply to affected a reas TID for up to 2 weeks TRIAMCINOLONE ACETONIDE 34159098062 No Longer A ctive Checo Conklin MD Active CEFDINIR 300 MG CAPS by mouth twice a day CEFDI JAZZY 70259997317 No Longer Active Dangelo Rangel MD Active BUPROPION HCL (SMOKING DETER) 150 MG [id number] 1 a day for 1 week then 1 twice a day BUPROPION HCL (SMOKING DETER) 40152434624 No Lo nger Active Checo Conklin MD Active SIMVASTATIN 20 MG TABS 1 po qd SIMVASTATIN 4784999813 5 Active Checo Conklin MD Active CHANTIX STARTING MONTH KARTHIK 0.5 MG X 11 & 1 MG X 42 TAB S 0.5mg daily for 3 days, then 0.5mg BID for 4 days, then 1mg BID VARENICLINE TARTRATE 76232704950 No Longer Active Checo Conklin MD Activ e XANAX 0.5 MG TABS 1 po BID PRN anxiety ALPRAZOLAM 28418341618 Active Checo Conklin MD Active CONCERTA 18 MG CR-TABS 1 po q a.m. METHYLPHENID ATE HCL 24471555813 No Longer Active Checo Conklin MD Active AMBIEN 5 MG TAB 1 po qHS PRN Insomnia ZOLPIDEM TARTRATE 04504101118 Active Checo Conklin MD Active TRAZODONE HCL 100 MG TAB 0.5 to 1 po qHS PRN Insomnia TRAZODONE HCL 70479477269 No Longer Active Checo Conklin MD Acti ve FIORICET 325-50-40 MG TAB 1 tablet by mouth four times daily as needed [id number] 50741302418 No Longer Active Checo Conklin MD Active PHENERGAN CREAM* 25mg applied to wrist q6hr PRN Nausea PHENERGAN CREAM* No Longer Active Checo Conklin MD A ctive FLONASE 50 MCG/ACT SUSP 1 spray each nostril am and hs FLUTICASONE PROPIONATE 44082583346 No Longer Active Checo Simms e ANTIPYRINE-BENZOCAINE 5.4-1.4 % SOLN 1-2 drops in affected ear BENZOCAINE-ANTIPYRINE 58340840021 No Longer Active Checo Conklin MD Active CEFDINIR 300 MG CAPS 1 po bid CEFDINIR 33996850 120 No Longer Active Checo Conklin MD Active PREDNISONE 20 MG TAB 2 tabs daily for 3 days, 1 t ab daily for 3 days, 1/2 tab daily for 2 days PREDNISONE 76497218498 No Longer Active Aracelis Conklin MD Active AZITHROMYCIN 250 MG TABS 2 po qd x 1 day, then 1 po qd x 4 days AZITHROMYCIN 25727105269 No Longer Active Checo Conklin MD Active PREDNISONE 20 MG TAB 2 tabs daily for 3 days, 1 t ab daily for 3 days, 1/2 tab daily for 2 days PREDNISONE 53200895385 No Longer Active Checo Conklin MD Active ZITHROMAX Z-KARTHIK 250 MG TABS 2 today, then 1 daily for 4 days 201 09/18/28 AZITHROMYCIN 85408959305 No Longer Active Paul Hamlin MD Active FOCALIN XR 10 MG [id number] 1 po q a.m. D EXMETHYLPHENIDATE HCL 91166895711 No Longer Active Paul Hamlin MD Activ e PERCOCET 10-325 MG TABS 1 tablet every 6 hours as needed for pain OXYCODONE-ACETAMINOPHEN 28979824988 No Longer Active Paul Hamlin MD Active LORTAB 5 5-500 MG TABS 1/2 to 1 tablet by mouth flaquito ry 4 hours as needed for pain HYDROCODONE-ACETAMINOPHEN 69130474179 No Longer Active Checo Conklin MD Active FOCALIN XR 15 MG [id number] 1 po q a.m. D EXMETHYLPHENIDATE HCL 76442708187 No Longer Active Checo Conklin MD Activ e ZOFRAN ODT 4 MG TBDP 1 po q6hr PRN Nausea ONDAN SETRON 90353220381 No Longer Active Checo Conklin MD Active PERCOCET 5-325 MG TABS 1 tablet by mouth every 6 hours as needed OXYCODONE-ACETAMINOPHEN 80366620981 No Longer Active Checo Conklin MD Active PYRIDIUM 200 MG TABS take 1 tab po TID prn urinary pain. 0 PHENAZOPYRIDINE HCL 52882017911 No Longer Active Checo Conklin MD Active FLUCONAZOLE 150 MG TABS take 1 tab po qday once 04/06 FLUCONAZOLE 50818177731 No Longer Active Dangelo Rangel MD Acti ve CIPRO 500 MG TAB 1 tablet by mouth twice daily CIPROFLOXACIN HCL 84222155751 No Longer Active Dangelo Rangel MD Active PHENERGAN CREAM* 25mg applied to wrist q6hr PRN Nausea PHENERGAN CREAM* Inactive AMOXICILLIN 500 MG ORAL CAPS 2 po BID x 10 days 09/12 AMOXICILLIN 500 MG ORAL CAPS 045224 AMOXICILLIN Inactive ANTIPYRINE-BENZOCAINE 5.4-1.4 % SOLN 1-2 drops in affected ear ANTIPYRINE-BENZOCAINE 5.4-1.4 % SOLN BENZOCAINE-ANTIPYRINE I nactive BACTRIM DS 800-160 MG TAB 1 tab by mouth twice daily 2 BACTRIM DS 800-160 MG TAB 19820918 TRIMETHOPRIM-SULFAMETHOXAZOLE Inac tive BACTRIM DS 800-160 MG TABS 1 po BID x 7 days 0 BACTRIM DS 800-160 MG TABS 125095 SULFAMETHOXAZOLE-TRIMETHOPRIM Inactive BACTRIM DS 800-160 MG TAB 1 tab by mouth twice daily 2 BACTRIM DS 800-160 MG TAB 766972 TRIMETHOPRIM-SULFAMETHOXAZOLE Inac tive CIPRO 500 MG TAB 1 tablet by mouth twice daily CIPRO 500 MG TAB 443982 CIPROFLOXACIN HCL Inactive CIPRO 500 MG TAB 1 tablet by mouth twice daily CIPRO 500 MG TAB 393562 CIPROFLOXACIN HCL Inactive CLARITIN 10 MG TAB 1 tablet by mouth daily as needed for allergi es CLARITIN 10 MG TAB 824313 LORATADINE Inactive FIORICET 325-50-40 MG TAB 1 tablet by mouth four times daily as needed FIORICET 325-50-40 MG TAB ACETAMINOPHEN-C AFF-BUTALBITAL Inactive FLAGYL 500 MG TAB 1 tablet by mouth bid FLAGYL 500 MG TAB 397051 METRONIDAZOLE Inactive IBUPROFEN 800 MG TABS 1 tab every 8 hours with food 31/03/21 IBUPROFEN 800 MG TABS 332036 IBUPROFEN Inactive MAGNESIUM CITRATE 1.745 GM/30ML ORAL SOLN 150ml po BID PRN C onstipation MAGNESIUM CITRATE 1.745 GM/30ML ORAL SOLN 714098 0 MAGNESIUM CITRATE Inactive METOCLOPRAMIDE HCL 10 MG ORAL TABS take one PO tid PRN nausea 20 29/12/14 METOCLOPRAMIDE HCL 10 MG ORAL TABS 795522 METOCLOPRAMID E HCL Inactive PERCOCET 5-325 MG TABS 1 tablet by mouth every 6 hours as needed PERCOCET 5-325 MG TABS 9927389 OXYCODONE-ACETAMINOPHEN I nactive PHENAZOPYRIDINE HCL 200 MG TABS take 1 tab po TID for bladder pa in PHENAZOPYRIDINE HCL 200 MG TABS 9803869 PHENAZOPYRIDINE HCL Inactive PREDNISONE 20 MG TAB 2 tabs daily for 3 days, 1 t ab daily for 3 days, 1/2 tab daily for 2 days PREDNISONE 20 MG TAB 049999 PREDNISON E Inactive PREDNISONE 20 MG TAB 2 tabs daily for 3 days, 1 t ab daily for 3 days, 1/2 tab daily for 2 days PREDNISONE 20 MG TAB 606916 PREDNISON E Inactive PREDNISONE 20 MG TAB 2 tabs daily for 3 days, 1 t ab daily for 3 days, 1/2 tab daily for 2 days PREDNISONE 20 MG TAB 195900 PREDNISON E Inactive PYRIDIUM 200 MG TABS take 1 tab po TID prn urinary pain. 0 PYRIDIUM 200 MG TABS 7384128 PHENAZOPYRIDINE HCL Inactive REGLAN 10 MG TAB 1 po TID PRN Nausea REGLAN 10 MG TAB 093794 METOCLOPRAMIDE HCL Inactive TRAZODONE HCL 100 MG TAB 0.5 to 1 po qHS PRN Insomnia TRAZODONE HCL 100 MG TAB 322410 TRAZODONE HCL Inactive TRIAMCINOLONE ACETONIDE 0.1 % OINT Apply to affected a reas TID for up to 2 weeks TRIAMCINOLONE ACETONIDE 0.1 % OINT 034406 6 TRIAMCINOLONE ACETONIDE Inactive LORTAB 5 5-500 MG TABS 1/2 to 1 tablet by mouth flaquito ry 4 hours as needed for pain LORTAB 5 5-500 MG TABS HYDROCODONE-A CETAMINOPHEN Inactive TERBINAFINE HCL 250 MG ORAL TABS take one table PO one time abran y TERBINAFINE HCL 250 MG ORAL TABS 598144 TERBINAFINE HCL Inactive SUMATRIPTAN SUCCINATE 100 MG ORAL TABS Take one PRN for migrane SUMATRIPTAN SUCCINATE 100 MG ORAL TABS 035485 SUMATRIPT AN SUCCINATE Inactive DIFLUCAN 150 MG TAB 1 tablet by mouth if needed, hold until symptoms start DIFLUCAN 150 MG TAB 976895 FLUCONAZOLE Inactive DIFLUCAN 150 MG TAB 1 tablet by mouth qod DIFLUCAN 150 MG TAB 541097 FLUCONAZOLE Inactive FLUCONAZOLE 150 MG TABS take 1 tab po qday once 04/06 FLUCONAZOLE 150 MG TABS 950621 FLUCONAZOLE Inactive DICLOFENAC SODIUM 75 MG TBEC 1 tablet by mouth twice daily P RN Knee pain DICLOFENAC SODIUM 75 MG TBEC 236964 DICLOFENAC S ODIUM Inactive LAMISIL 250 MG TAB 1 po qd LAMISIL 250 MG TAB 074643 TERBINAFINE HCL Inactive AZITHROMYCIN 250 MG TABS 2 po qd x 1 day, then 1 po qd x 4 days AZITHROMYCIN 250 MG TABS 8368332 AZITHROMYCIN Inactiv e AZITHROMYCIN 250 MG TABS 2 po qd x 1 day, then 1 po qd x 4 days AZITHROMYCIN 250 MG TABS 4234033 AZITHROMYCIN Inactiv e AZITHROMYCIN 250 MG TABS 2 po qd x 1 day, then 1 po qd x 4 days AZITHROMYCIN 250 MG TABS 3287092 AZITHROMYCIN Inactiv e BACTROBAN 2 % CREAM Apply to affected area BID for up to 10 days BACTROBAN 2 % CREAM 103073 MUPIROCIN CALCIUM Inactive CEFDINIR 300 MG CAPS by mouth twice a day CEFDINIR 300 MG CAPS 830019 CEFDINIR Inactive CEFDINIR 300 MG CAPS 1 po bid CEFDINIR 300 MG CAPS 20 0346 CEFDINIR Inactive CELEXA 20 MG TABS 1 tablet by mouth daily CELEXA 20 MG TABS 452113 CITALOPRAM HYDROBROMIDE Inactive ZOFRAN ODT 4 MG TBDP 1 po q6hr PRN Nausea ZOFRAN ODT 4 MG TBDP 492031 ONDANSETRON Inactive ONDANSETRON [address] one tablet on tongue and allow to dissolve every 6 hours as needed for vomitting ON DANSETRON 8 MG ORAL TBDP 885696 ONDANSETRON Inactive CONCERTA 18 MG CR-TABS 1 po q a.m. CONCERTA 18 MG CR-TABS METHYLPHENIDATE HCL Inactive COMPRO 25 MG RECTAL SUPP insert or apply one supposit ory rectally as directed every 12 hours as needed for nausea COMP RO 25 MG RECTAL SUPP 218456 PROCHLORPERAZINE Inactive ZITHROMAX Z-KARTHIK 250 MG TABS 2 today, then 1 daily for 4 days 201 09/18/28 ZITHROMAX Z-KARTHIK 250 MG TABS 5627380 AZITHROMYCIN Inac tive FLONASE 50 MCG/ACT SUSP 1 spray each nostril am and hs FLONASE 50 MCG/ACT SUSP FLUTICASONE PROPIONATE Inactive PERCOCET 10-325 MG TABS 1 tablet every 6 hours as needed for pain PERCOCET 10-325 MG TABS 6405631 OXYCODONE-ACETAMINOPHEN Inactive HYDROCODONE-ACETAMINOPHEN 5-325 MG TABS 1 po q 6hr PRN Pain 2013 HYDROCODONE-ACETAMINOPHEN 5-325 MG TABS 451542 HYDROCODONE-ACETAMINOPHEN Inactive HYDROCODONE-ACETAMINOPHEN 5-325 MG TABS 0.5 to 1 tab b y mouth every 6 hours as needed HYDROCODONE-ACETAMINOPHEN 5-325 MG TABS 8 26875 HYDROCODONE-ACETAMINOPHEN Inactive HYDROCODONE-ACETAMINOPHEN 5-325 MG TABS 1 tab by mouth every 6 hours as needed HYDROCODONE-ACETAMINOPHEN 5-325 MG TABS 556485 HYDROCODONE-ACETAMINOPHEN Inactive HYDROCODONE-ACETAMINOPHEN 5-325 MG TABS 1/2 to 1 po q 4 hour s prn cough HYDROCODONE-ACETAMINOPHEN 5-325 MG TABS 961592 HYDROCODONE-ACETAMINOPHEN Inactive BUPROPION HCL ER (SR) 100 MG ORAL [id number] take one t ablet by mouth one time daily for one week then take 1 two times daily BUPROPION HCL ER (SR) 100 MG ORAL [id number] BUPROPION HCL Inacti ve FOCALIN XR 10 MG [id number] 1 po q a.m. F OCALIN XR 10 MG [id number] DEXMETHYLPHENIDATE HCL Inactive FLUTICASONE PROPIONATE 50 MCG/ACT NASAL SUSP 2 sprays/ nostril qd PRN Congestion/Allergies FLUTICASONE PROPION ATE 50 MCG/ACT NASAL SUSP 9848581 FLUTICASONE PROPIONATE Inactive FOCALIN XR 15 MG [id number] 1 po q a.m. F OCALIN XR 15 MG [id number] DEXMETHYLPHENIDATE HCL Inactive TRAVEL SICKNESS 25 MG ORAL CHEW chew and swallow one t ablet every 6 hours as needed TRAVEL SICKNESS 25 MG ORAL CHEW 440514 MECLIZINE HCL Inactive CHANTIX STARTING MONTH KARTHIK [...] pressure, diastolic - 8462-4 88 mm[Hg] BP mahtew blood pressure, systolic - 8480-6 125 mm[Hg] [...] Report: CBC W/DIFF, Comp. Metabolic Panel, Qual [facility] [place] - Chemistry sodium, serum 139 mmol/L 766-639 9079/10/21 carbon dioxide, venous blood 33.5 mmol/L 21.0-32 [...] Report: CBC W/DIFF, Comp. Metabolic Panel, Qual [facility] [place] - Hematology leukocyte [...] PANEL - Chemistry cholesterol, serum 192 mg/dL 464-812 8864/02/20 HDL cholesterol, serum 31 mg/dL > OR [...] 11 .0-15.0 platelet count 218 THOUSAND/UL 10*3/mm3 875-946 5569/02/20 mean platelet volume 9.7 fL 7.5-12.5 Lab Report: Chlamydia/GC APTIMA/[id number] - Lab chlamydia DNA probe NOT DETECTED NOT DETECTED Lab Report: Chlamydia/GC APTIMA/[id number] - Microbiology Neisseria gonorrhoeae DNA probe NOT DETECTED NO T DETECTED Lab Report: Comp. Metabolic Panel, Thyro id Stimulating Hormone (L), Eryt ... - Chemistry sodium, serum 137 mmol/L 808-774 3751/05/27 carbon dioxide, venous blood 29.1 mmol/L 21.0-32 [...] 5.0-8.5 Encounters Code Encounter Date Provider Facility CPT-69169 Level 3 Est. Patient 11:29:55 CDT Checo Conklin MD [facility] CPT-63576 Level 4 Est. Patient 11:08:12 DEALMAKER Checo Conklin MD [facility] CPT-97971 Level 4 Est. Patient 16:06:48 DEALMAKER Checo Conklin MD [facility] CPT-70851 Level 3 Est. Patient 09:11:49 CDT Efren almendarez [facility] CPT-97073 Level 2 Est. Patient 19:53:27 CDT Tanner hill MD [facility] CPT-79635 Level 3 Est. Patient 09:15:34 CDT Efren almendarez [facility] CPT-20573 Level 3 Est. Patient 11:28:51 DEALMAKER Efren almendarez [facility] CPT-05951 Level 4 Est. Patient 13:55:46 DEALMAKER Checo Conklin MD [facility] CPT-21179 Level 4 Est. Patient 17:10:53 CDT Checo Conklin MD [facility] CPT-11449 Level 3 Est. Patient 15:56:22 CDT Checo Conklin MD [facility] CPT-08544 Level 3 Est. Patient 15:29:07 CDT Checo Conklin MD [facility] CPT-56053 Level 3 Est. Patient 14:38:41 CDT Checo Conklin MD [facility] CPT-46921 Level 3 Est. Patient 15:22:03 DEALMAKER Thomas reynolds DO [facility] CPT-02412 Level 3 Est. Patient 13:34:17 DEALMAKER Checo Conklin MD [facility] CPT-66240 Level 3 Est. Patient 12:29:32 CDT Dangelo arroyo MD [facility] CPT-33521 Level 3 Est. Patient 16:53:02 CDT Checo Conklin MD [facility] CPT-72539 Level 3 Est. Patient 16:37:13 CDT Checo Conklin MD [facility] CPT-78531 Level 3 Est. Patient 16:16:59 CDT Paul Hamlin MD [facility] CPT-52798 Level 3 Est. Patient 14:20:13 CDT Dangelo arroyo MD [facility] CPT-42677 Level 4 Est. Patient 11:29:33 CDT Checo Conklin MD [facility] CPT-78376 Level 3 Est. Patient 17:08:31 CDT Checo Conklin MD [facility] CPT-87334 Level 3 Est. Patient 16:50:42 DEALMAKER Checo Conklin MD [facility] CPT-09235 Level 4 Est. Patient 09:26:08 DEALMAKER Checo Conklin MD [facility] CPT-00394 Level 3 Est. Patient 11:37:10 CDT Checo Conklin MD [facility] CPT-05542 Level 4 Est. Patient 14:07:38 CDT Checo Conklin MD [facility] CPT-79017 Level 3 Est. Patient 09:54:41 CDT Checo Conklin MD [facility] CPT-19137 Level 3 Est. Patient 11:10:54 CDT Paul Hamlin MD [facility] CPT-73587 Level 3 Est. Patient 14:16:56 DEALMAKER Checo Conklin MD [facility] CPT-43298 Level 3 Est. Patient 11:04:11 DEALMAKER Checo Conklin MD [facility] CPT-99647 Level 3 Est. Patient 17:09:26 CDT Dangelo arroyo MD [facility] CPT-66429 Level 3 Est. Patient 16:54:37 CDT Checo Conklin MD [facility] Procedures Code Procedure Name Date Entry Date Standard Desc ription CPT-26690 UA w micro - LAB USE ONLY 17:06:46 CDT 2015 CPT-59151 BHCG Qual - LAB USE ONLY 17:06:46 CDT 05/06 CPT-70755 CMP - LAB USE ONLY 17:06:46 CDT CPT-11858 CBC with Diff - LAB USE ONLY 17:06:45 CDT 2 CPT-80936 Venipuncture Draw Fee 17:06:45 CDT CPT-LR Lesion Removal 19:53:27 CDT CPT-OV Office Visit 11:31:28 CDT CPT-50532 Tubersol 09:39:29 CDT CPT-J2550 Phenergan 25 mg (Promethazine) 13:59:02 DEALMAKER CPT-J1885 Toradol 60 mg (Ketorolac) 13:59:02 DEALMAKER 2012
--- OUTSIDE RECORDS SUMMARY | 2019-09-29 01:57 | XMS REPORT | Clinical Summary ---
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 DEX METHYLPHENIDATE HCL 70310772168 Active Checo Conklin MD Active MAGNESIUM CITRATE 1.745 GM/30ML ORAL SOLN 150ml po BID PRN C onstipation MAGNESIUM CITRATE 89303405958 No Longer Active Checo Conklin MD Active BACTROBAN 2 % CREAM Apply to affected area BID for up to 10 days MUPIROCIN CALCIUM 62011147292 No Longer Active Checo Conklin MD Active HYDROCODONE-ACETAMINOPHEN 5-325 MG TABS 1 tab by mouth every 6 hours as needed HYDROCODONE-ACETAMINOPHEN 27921709286 No Longer Activ e Checo Conklin MD Active IBUPROFEN 800 MG TABS 1 tab every 8 hours with food 31/03/21 IBUPROFEN 35105649920 No Longer Active Checo Conklin MD Activ e DIFLUCAN 150 MG TAB 1 tablet by mouth if needed, hold until symptoms start FLUCONAZOLE 93081896615 No Longer Active Checo Ortiz MD Active BACTRIM DS 800-160 MG TAB 1 tab by mouth twice daily 2 TRIMETHOPRIM-SULFAMETHOXAZOLE 02850712215 No Longer Active Corry leong LPN Active MIRALAX PACK 1 po qd PRN Constipation POLYETHYL JOEL GLYCOL 3350 55277960355 Active Checo Conklin MD Active HYDROCODONE-ACETAMINOPHEN 5-325 MG TABS 0.5 to 1 tab b y mouth every 6 hours as needed HYDROCODONE-ACETAMINOPHEN 81957726423 No Longer Active Checo Conklin MD Active ONDANSETRON [address] one tablet on tongue and allow to dissolve every 6 hours as needed for vomitting ONDANSETRO N 15819221483 No Longer Active Checo Conklin MD Active COMPRO 25 MG RECTAL SUPP insert or apply one supposit ory rectally as directed every 12 hours as needed for nausea PROCHLORPERA ZINE 87776487633 No Longer Active Checo Conklin MD Active SUMATRIPTAN SUCCINATE 100 MG ORAL TABS Take one PRN for migrane SUMATRIPTAN SUCCINATE 98184863050 No Longer Active Checo Conklin MD Active TRAVEL SICKNESS 25 MG ORAL CHEW chew and swallow one t ablet every 6 hours as needed MECLIZINE HCL 34546160590 No Longer Active Joe Conklin MD Active BUPROPION HCL ER (SR) 100 MG ORAL [id number] take one t ablet by mouth one time daily for one week then take 1 two times daily BUPROPION HCL 69302955080 No Longer Active Checo Conklin MD Activ e TERBINAFINE HCL 250 MG ORAL TABS take one table PO one time abran y TERBINAFINE HCL 48326793974 No Longer Active Checo Conklin MD Active METOCLOPRAMIDE HCL 10 MG ORAL TABS take one PO tid PRN nausea 20 29/12/14 METOCLOPRAMIDE HCL 80305246906 No Longer Active Checo Conklin MD Active DICLOFENAC SODIUM 75 MG TBEC 1 tablet by mouth twice daily P RN Knee pain DICLOFENAC SODIUM 71726021379 No Longer Active Checo Conklin MD Active LAMISIL 250 MG TAB 1 po qd TERBINAFINE HCL 548 68054628 No Longer Active Checo Conklin MD Active REGLAN 10 MG TAB 1 po TID PRN Nausea METOCLOPRA MIDE HCL 63888628139 No Longer Active Checo Conklin MD Active CELEXA 20 MG TABS 1 tablet by mouth daily CITALOPRAM HYDROBROMIDE 32391580584 No Longer Active Checo Conklin MD Activ e AZITHROMYCIN 250 MG TABS 2 po qd x 1 day, then 1 po qd x 4 days AZITHROMYCIN 10986468213 No Longer Active Checo Conklin MD Active HYDROCODONE-ACETAMINOPHEN 5-325 MG TABS 1 po q 6hr PRN Pain 2013 HYDROCODONE-ACETAMINOPHEN 10120884231 No Longer Active Lenora Conklin MD Active PHENAZOPYRIDINE HCL 200 MG TABS take 1 tab po TID for bladder pa in PHENAZOPYRIDINE HCL 84360911738 No Longer Active Checo Joshua Active CIPRO 500 MG TAB 1 tablet by mouth twice daily CIPROFLOXACIN HCL 68984663096 No Longer Active Dangelo Rangel MD Active HYDROCODONE-ACETAMINOPHEN 5-325 MG TABS 1/2 to 1 po q 4 hour s prn cough HYDROCODONE-ACETAMINOPHEN 61552334125 No Longer Activ e Dangelo Rangel MD Active BACTRIM DS 800-160 MG TABS 1 po BID x 7 days 0 SULFAMETHOXAZOLE-TRIMETHOPRIM 60738556368 No Longer Active Checo Conklin MD Active PREDNISONE 20 MG TAB 2 tabs daily for 3 days, 1 t ab daily for 3 days, 1/2 tab daily for 2 days PREDNISONE 59401818989 No Longer Active Checo Conklin MD Active TRIAMCINOLONE ACETONIDE 0.1 % OINT Apply to affected a reas TID for up to 2 weeks TRIAMCINOLONE ACETONIDE 26753327583 No Longer A ctive Checo Conklin MD Active CEFDINIR 300 MG CAPS by mouth twice a day CEFDI JAZZY 03478059379 No Longer Active Dangelo Rangel MD Active BUPROPION HCL (SMOKING DETER) 150 MG [id number] 1 a day for 1 week then 1 twice a day BUPROPION HCL (SMOKING DETER) 23354173746 No Lo nger Active Checo Conklin MD Active SIMVASTATIN 20 MG TABS 1 po qd SIMVASTATIN 5178856252 5 Active Checo Conklin MD Active CHANTIX STARTING MONTH KARTHIK 0.5 MG X 11 & 1 MG X 42 TAB S 0.5mg daily for 3 days, then 0.5mg BID for 4 days, then 1mg BID VARENICLINE TARTRATE 95973427590 No Longer Active Checo Conklin MD Activ e XANAX 0.5 MG TABS 1 po BID PRN anxiety ALPRAZOLAM 43287085351 Active Checo Conklin MD Active CONCERTA 18 MG CR-TABS 1 po q a.m. METHYLPHENID ATE HCL 86901502845 No Longer Active Checo Conklin MD Active AMBIEN 5 MG TAB 1 po qHS PRN Insomnia ZOLPIDEM TARTRATE 46471077102 Active Checo Conklin MD Active TRAZODONE HCL 100 MG TAB 0.5 to 1 po qHS PRN Insomnia TRAZODONE HCL 19805267834 No Longer Active Checo Conklin MD Acti ve FIORICET 325-50-40 MG TAB 1 tablet by mouth four times daily as needed [id number] 38503274970 No Longer Active Checo Conklin MD Active PHENERGAN CREAM* 25mg applied to wrist q6hr PRN Nausea PHENERGAN CREAM* No Longer Active Checo Conklin MD A ctive FLONASE 50 MCG/ACT SUSP 1 spray each nostril am and hs FLUTICASONE PROPIONATE 81699541301 No Longer Active Checo Conklin MD Activ e ANTIPYRINE-BENZOCAINE 5.4-1.4 % SOLN 1-2 drops in affected ear BENZOCAINE-ANTIPYRINE 73547816449 No Longer Active Checo Conklin MD Active CEFDINIR 300 MG CAPS 1 po bid CEFDINIR 92649520 120 No Longer Active Checo Conklin MD Active PREDNISONE 20 MG TAB 2 tabs daily for 3 days, 1 t ab daily for 3 days, 1/2 tab daily for 2 days PREDNISONE 08169615271 No Longer Active Aracelis Conklin MD Active AZITHROMYCIN 250 MG TABS 2 po qd x 1 day, then 1 po qd x 4 days AZITHROMYCIN 94980622428 No Longer Active Checo Conklin MD Active PREDNISONE 20 MG TAB 2 tabs daily for 3 days, 1 t ab daily for 3 days, 1/2 tab daily for 2 days PREDNISONE 02983134628 No Longer Active Checo Conklin MD Active ZITHROMAX Z-KARTHIK 250 MG TABS 2 today, then 1 daily for 4 days 201 09/18/28 AZITHROMYCIN 62359176889 No Longer Active Paul Hamlin MD Active FOCALIN XR 10 MG [id number] 1 po q a.m. D EXMETHYLPHENIDATE HCL 30030059869 No Longer Active Paul Hamlin MD Activ e PERCOCET 10-325 MG TABS 1 tablet every 6 hours as needed for pain OXYCODONE-ACETAMINOPHEN 09958624359 No Longer Active Paul Hamlin MD Active LORTAB 5 5-500 MG TABS 1/2 to 1 tablet by mouth flaquito ry 4 hours as needed for pain HYDROCODONE-ACETAMINOPHEN 60335348206 No Longer Active Checo Conklin MD Active FOCALIN XR 15 MG [id number] 1 po q a.m. D EXMETHYLPHENIDATE HCL 06018919663 No Longer Active Checo Conklin MD Activ e ZOFRAN ODT 4 MG TBDP 1 po q6hr PRN Nausea ONDAN SETRON 51228482288 No Longer Active Checo Conklin MD Active PERCOCET 5-325 MG TABS 1 tablet by mouth every 6 hours as needed OXYCODONE-ACETAMINOPHEN 62590508654 No Longer Active Checo Conklin MD Active PYRIDIUM 200 MG TABS take 1 tab po TID prn urinary pain. 0 PHENAZOPYRIDINE HCL 59835374492 No Longer Active Checo Conklin MD Active FLUCONAZOLE 150 MG TABS take 1 tab po qday once 04/06 FLUCONAZOLE 50305603182 No Longer Active Dangelo Rangel MD Acti ve CIPRO 500 MG TAB 1 tablet by mouth twice daily CIPROFLOXACIN HCL 24153127958 No Longer Active Dangelo Rangel MD Active PYRIDIUM 200 MG TABS take 1 tab po TID prn urinary pain. 0 PYRIDIUM 200 MG TABS 7394084 PHENAZOPYRIDINE HCL Inactive PERCOCET 5-325 MG TABS 1 tablet by mouth every 6 hours as needed PERCOCET 5-325 MG TABS 3557224 OXYCODONE-ACETAMINOPHEN I nactive ZOFRAN ODT 4 MG TBDP 1 po q6hr PRN Nausea ZOFRAN ODT 4 MG TBDP 141156 ONDANSETRON Inactive FOCALIN XR 15 MG [id number] 1 po q a.m. F OCALIN XR 15 MG [id number] DEXMETHYLPHENIDATE HCL Inactive LORTAB 5 5-500 MG TABS 1/2 to 1 tablet by mouth flaquito ry 4 hours as needed for pain LORTAB 5 5-500 MG TABS HYDROCODONE-A CETAMINOPHEN Inactive PERCOCET 10-325 MG TABS 1 tablet every 6 hours as needed for pain PERCOCET 10-325 MG TABS 1994858 OXYCODONE-ACETAMINOPHEN Inactive FOCALIN XR 10 MG [id number] 1 po q a.m. F OCALIN XR 10 MG [id number] DEXMETHYLPHENIDATE HCL Inactive CEFDINIR 300 MG CAPS 1 po bid CEFDINIR 300 MG CAPS 20 0346 CEFDINIR Inactive ANTIPYRINE-BENZOCAINE 5.4-1.4 % SOLN 1-2 drops in affected ear ANTIPYRINE-BENZOCAINE 5.4-1.4 % SOLN 795129 BENZOCAINE-ANTIPYRINE I nactive FLONASE 50 MCG/ACT SUSP [...] PRN Insomnia TRAZODONE HCL 100 MG TAB 938932 TRAZODONE HCL Inactive CONCERTA 18 MG CR-TABS [...] s prn cough HYDROCODONE-ACETAMINOPHEN 5-325 MG TABS 023229 HYDROCODONE-ACETAMINOPHEN Inactive PHENAZOPYRIDINE HCL 200 MG TABS take 1 tab po TID for bladder pa in PHENAZOPYRIDINE HCL 200 MG TABS 8179765 PHENAZOPYRIDINE HCL Inactive HYDROCODONE-ACETAMINOPHEN 5-325 MG TABS 1 po q 6hr PRN Pain 2013 HYDROCODONE-ACETAMINOPHEN 5-325 MG TABS 666471 HYDROCODONE-ACETAMINOPHEN Inactive CELEXA 20 MG TABS 1 tablet by mouth daily CELEXA 20 MG TABS 467526 CITALOPRAM HYDROBROMIDE Inactive REGLAN 10 MG TAB 1 po TID PRN Nausea REGLAN 10 MG TAB 018413 METOCLOPRAMIDE HCL Inactive LAMISIL 250 MG TAB 1 po qd LAMISIL 250 MG TAB 165560 TERBINAFINE HCL Inactive DICLOFENAC SODIUM 75 MG TBEC 1 tablet by mouth twice daily P RN Knee pain DICLOFENAC SODIUM 75 MG TBEC 972484 DICLOFENAC S ODIUM Inactive METOCLOPRAMIDE HCL 10 MG ORAL TABS take one PO tid PRN nausea 20 29/12/14 METOCLOPRAMIDE HCL 10 MG ORAL TABS 943325 METOCLOPRAMID E HCL Inactive TERBINAFINE HCL 250 MG ORAL TABS take one table PO one time abran y TERBINAFINE HCL 250 MG ORAL TABS 904284 TERBINAFINE HCL Inactive BUPROPION HCL ER (SR) 100 MG ORAL [id number] take one t ablet by mouth one time daily for one week then take 1 two times daily BUPROPION HCL ER (SR) 100 MG ORAL [id number] BUPROPION HCL Inacti ve TRAVEL SICKNESS 25 MG ORAL CHEW chew and swallow one t ablet every 6 hours as needed TRAVEL SICKNESS 25 MG ORAL CHEW 168400 MECLIZINE HCL Inactive SUMATRIPTAN SUCCINATE 100 MG ORAL TABS Take one PRN for migrane SUMATRIPTAN SUCCINATE 100 MG ORAL TABS 710564 SUMATRIPT AN SUCCINATE Inactive COMPRO 25 MG RECTAL SUPP insert or apply one supposit ory rectally as directed every 12 hours as needed for nausea COMP RO 25 MG RECTAL SUPP 025232 PROCHLORPERAZINE Inactive ONDANSETRON [address] one tablet on tongue and allow to dissolve every 6 hours as needed for vomitting ON DANSETRON 8 MG ORAL TBDP 280983 ONDANSETRON Inactive HYDROCODONE-ACETAMINOPHEN 5-325 MG TABS 0.5 to 1 tab b y mouth every 6 hours as needed HYDROCODONE-ACETAMINOPHEN 5-325 MG TABS 8 79184 HYDROCODONE-ACETAMINOPHEN Inactive BACTRIM DS 800-160 MG TAB 1 tab by mouth twice daily 2 BACTRIM DS 800-160 MG TAB 178371 TRIMETHOPRIM-SULFAMETHOXAZOLE Inac tive DIFLUCAN 150 MG TAB 1 tablet by mouth if needed, hold until symptoms start DIFLUCAN 150 MG TAB 949812 FLUCONAZOLE Inactive IBUPROFEN 800 MG TABS 1 tab every 8 hours with food 31/03/21 IBUPROFEN 800 MG TABS 860224 IBUPROFEN Inactive HYDROCODONE-ACETAMINOPHEN 5-325 MG TABS 1 tab by mouth every 6 hours as needed HYDROCODONE-ACETAMINOPHEN 5-325 MG TABS 243132 HYDROCODONE-ACETAMINOPHEN Inactive BACTROBAN 2 % CREAM Apply to affected area BID for up to 10 days BACTROBAN 2 % CREAM 070855 MUPIROCIN CALCIUM Inactive MAGNESIUM CITRATE 1.745 GM/30ML ORAL SOLN 150ml po BID PRN C onstipation MAGNESIUM CITRATE 1.745 GM/30ML ORAL SOLN 450978 0 MAGNESIUM CITRATE Inactive CIPRO 500 MG TAB 1 tablet by mouth twice daily CIPRO 500 MG TAB 257117 CIPROFLOXACIN HCL Inactive FLUCONAZOLE 150 MG TABS take 1 tab po qday once 04/06 FLUCONAZOLE 150 MG TABS 984725 FLUCONAZOLE Inactive ZITHROMAX Z-KARTHIK 250 MG TABS 2 today, then 1 daily for 4 days 201 09/18/28 ZITHROMAX Z-KARTHIK 250 MG TABS 9701297 AZITHROMYCIN Inac tive PREDNISONE 20 MG TAB 2 tabs daily for 3 days, 1 t ab daily for 3 days, 1/2 tab daily for 2 days PREDNISONE 20 MG TAB 131822 PREDNISON E Inactive AZITHROMYCIN 250 MG TABS 2 po qd x 1 day, then 1 po qd x 4 days AZITHROMYCIN 250 MG TABS 2302108 AZITHROMYCIN Inactiv e PREDNISONE 20 MG TAB 2 tabs daily for 3 days, 1 t ab daily for 3 days, 1/2 tab daily for 2 days PREDNISONE 20 MG TAB 757996 PREDNISON E Inactive CEFDINIR 300 MG CAPS by mouth twice a day CEFDINIR 300 MG CAPS 172860 CEFDINIR Inactive TRIAMCINOLONE ACETONIDE 0.1 % OINT Apply to affected a reas TID for up to 2 weeks TRIAMCINOLONE ACETONIDE 0.1 % OINT 385460 6 TRIAMCINOLONE ACETONIDE Inactive PREDNISONE 20 MG TAB 2 tabs daily for 3 days, 1 t ab daily for 3 days, 1/2 tab daily for 2 days PREDNISONE 20 MG TAB 031564 PREDNISON E Inactive BACTRIM DS 800-160 MG TABS 1 po BID x 7 days 0 BACTRIM DS 800-160 MG TABS 669983 SULFAMETHOXAZOLE-TRIMETHOPRIM Inactive CIPRO 500 MG TAB 1 tablet by mouth twice daily CIPRO 500 MG TAB 284158 CIPROFLOXACIN HCL Inactive AZITHROMYCIN 250 MG TABS 2 po qd x 1 day, then 1 po qd x 4 days AZITHROMYCIN 250 MG TABS 0735441 AZITHROMYCIN Inactiv e FLAGYL 500 MG TAB 1 tablet by mouth bid FLAGYL 500 MG TAB 375573 METRONIDAZOLE Inactive Immunizations Vaccine Administration Date Value [...] ... - Chemistry sodium, serum 141 mmol/L 016-642 2153/01/26 carbon dioxide, venous blood 30.0 mmol/L 21.0-32 .0 potassium, serum 4.0 mmol/L 3.5-5.2 chloride, serum 105 mmol/L 98-107 blood glucose 85 mg/dL 65-110 urea nitrogen, blood 9 mg/dL 7-18 creatinine, serum 0.66 mg/dL 0.55-1.30 alanine aminotransferase (SGPT), serum 31 U/L 12-78 aspartate aminotransferase (SGOT), serum 21 U/L 15-37 calcium, serum 8.2 mg/dL 8.5-10.1 bilirubin, serum, total 1.10 mg/dL 0.00-1.00 cholesterol, serum 178 mg/dL 934-979 4647/01/26 triglyceride, serum, fasting 149 mg/dL 30-200 HDL [...] 5.0-8.5 Encounters Code Encounter Date Provider Facility CPT-08443 Level 3 Est. Patient 11:28:51 CONSULTANT IN ERGONOMICS AND SAFETY Efren almendarez APRN [facility] CPT-32305 Level 4 Est. Patient 13:55:46 CONSULTANT IN ERGONOMICS AND SAFETY Checo Conklin MD [facility] CPT-42712 Level 4 Est. Patient 17:10:53 CDT Checo Conklin MD [facility] CPT-63442 Level 3 Est. Patient 15:56:22 CDT Checo Conklin MD [facility] CPT-28776 Level 3 Est. Patient 15:29:07 CDT Checo Conklin MD [facility] CPT-52384 Level 3 Est. Patient 14:38:41 CDT Checo Conklin MD [facility] CPT-53615 Level 3 Est. Patient 15:22:03 CONSULTANT IN ERGONOMICS AND SAFETY Thomas reynolds DO [facility] CPT-99531 Level 3 Est. Patient 13:34:17 CONSULTANT IN ERGONOMICS AND SAFETY Checo Conklin MD [facility] CPT-67179 Level 3 Est. Patient 12:29:32 CDT Dangelo arroyo MD [facility] CPT-09625 Level 3 Est. Patient 16:53:02 CDT Checo Conklin MD [facility] CPT-50204 Level 3 Est. Patient 16:37:13 CDT Checo Conklin MD [facility] CPT-83110 Level 3 Est. Patient 16:16:59 CDT Paul Hamlin MD [facility] CPT-93987 Level 3 Est. Patient 14:20:13 CDT Dangelo arroyo MD [facility] CPT-08799 Level 4 Est. Patient 11:29:33 CDT Checo Conklin MD [facility] CPT-33898 Level 3 Est. Patient 17:08:31 CDT Checo Conklin MD [facility] CPT-63712 Level 3 Est. Patient 16:50:42 CONSULTANT IN ERGONOMICS AND SAFETY Checo Conklin MD [facility] CPT-72578 Level 4 Est. Patient 09:26:08 CONSULTANT IN ERGONOMICS AND SAFETY Checo Conklin MD [facility] CPT-10146 Level 3 Est. Patient 11:37:10 CDT Checo Conklin MD [facility] CPT-49249 Level 4 Est. Patient 14:07:38 CDT Checo Conklin MD [facility] CPT-96314 Level 3 Est. Patient 09:54:41 CDT Checo Conklin MD [facility] CPT-57927 Level 3 Est. Patient 11:10:54 CDT Paul Hamlin MD [facility] CPT-36012 Level 3 Est. Patient 14:16:56 CONSULTANT IN ERGONOMICS AND SAFETY Checo Conklin MD [facility] CPT-75670 Level 3 Est. Patient 11:04:11 CONSULTANT IN ERGONOMICS AND SAFETY Checo Conklin MD [facility] CPT-54975 Level 3 Est. Patient 17:09:26 CDT Dangelo arroyo MD [facility] CPT-85158 Level 3 Est. Patient 16:54:37 CDT Checo Conklin MD [facility] Procedures Code Procedure Name Date Entry Date Standard Desc ription CPT-OV Office Visit 11:31:28 CDT CPT-22529 Tubersol 09:39:29 CDT CPT-J2550 Phenergan 25 mg (Promethazine) 13:59:02 CONSULTANT IN [employer]GONOMICS AND SAFETY CPT-J1885 Toradol 60 mg (Ketorolac) 13:59:02 CONSULTANT IN ERGONOMICS AND SAFETY 2012
--- OUTSIDE RECORDS SUMMARY | 2019-09-29 01:57 | XMS REPORT | Clinical Summary ---
Author Author Admin, Bethany Ayala [facility] Address Unknown Phone Unavailable Allergies, Adverse Reactions, [...] MD Acute bronchitis Abdominal pain 789.00 Resolved hCeco Conklin MD Abdominal pain, unspecified site Knee [...] 729.5 Active Dangelo Joshua Pain in limb BREAST CANCER ICD-V16.3 Inactive Checo Joshua FH [...] Checo ngo MD Knee pain, right ICD-719.46 Ozzy gallagher MD Vertigo ICD-780.4 Inactive Checo Conklin MD 2014 Abscess, skin ICD-682.9 Inactive Checo richey MD Bacterial vaginosis ICD-616.10 Inactive Lenora Conklin MD Mastalgia ICD-611.71 Inactive Checo Joshua Pedal edema ICD-782.3 Inactive Checo Conklin MD [...] 02/15/12 Pharyngitis ICD-462 Inactive Checo Conklin MD Cough ICD-786.2 Ozzy Conklin MD 2016 Medication List Medication Instructions Start Date Stop Date Generic Name NDC Status Provider Patient Instruction IBUPROFEN 800 MG ORAL TABLET 1 tab every 8 hours as needed for p ain IBUPROFEN [id number] Active Dangelo Rangel MD Acti ve PAROXETINE HCL 40 MG ORAL TABLET 1 po qd PAR OXETINE HCL 56037066335 Active Checo Conklin MD Active MIRALAX ORAL POWDER 8.5 to 17g po qd PRN Constipation POLYETHYLENE GLYCOL 3350 03825592846 No Longer Active Checo Conklin MD Active PROTONIX 40 MG ORAL TABLET DELAYED RELEASE 1 pill by m outh daily, for acid reflux PANTOPRAZOLE SODIUM 82970550376 No Longer Activ e Corry Méndez LPN Active FLAGYL 500 MG ORAL TABLET 1 tablet by mouth bid 08/29 METRONIDAZOLE 91718670753 No Longer Active Corry Méndez LPN Active CLARITHROMYCIN 500 MG ORAL TABLET 1 tab po BID x 14 days CLARITHROMYCIN 75132086759 No Longer Active Corry Méndez LPN Active AMOXICILLIN 500 MG ORAL CAPSULE 2 po BID x 14 days for H. Pylori AMOXICILLIN 10662620317 No Longer Active Corry Méndez LPN Active FLUTICASONE PROPIONATE 50 MCG/ACT NASAL SUSPENSION 2 s prays/nostril qd PRN Congestion/Allergies FLUTICASONE PROPIONATE 7870530105 9 No Longer Active Checo Conklin MD Active AMOXICILLIN 500 MG ORAL CAPSULE 2 po BID x 10 days 201 01/15/27 AMOXICILLIN 99477490451 No Longer Active Checo Conklin MD Activ e CLARITIN 10 MG ORAL TABLET 1 tablet by mouth daily as needed for allergies LORATADINE 55034073631 No Longer Active Checo Ortiz MD Active BACTRIM DS 800-160 MG ORAL TABLET 1 tab by mouth twice daily 201 12/19/26 TRIMETHOPRIM-SULFAMETHOXAZOLE 66309405366 No Longer Active Ragini Carrillo MD Active DIFLUCAN 150 MG ORAL TABLET 1 tablet by mouth qod 2015 FLUCONAZOLE 56067993119 No Longer Active Efren Medel APRN Act mike AZITHROMYCIN 250 MG ORAL TABLET 2 po qd x 1 day, then 1 po q d x 4 days AZITHROMYCIN 68889102140 No Longer Active Jillina Fra sandra [employer]CTION SPECIALIST Active FLAGYL 500 MG ORAL TABLET 1 tablet by mouth bid 04/13 METRONIDAZOLE 51568532392 No Longer Active Checo Conklin MD Acti ve FOCALIN XR 10 MG ORAL CAPSULE EXTENDED RELEASE 24 HOUR 1 po q a.m. DEXMETHYLPHENIDATE HCL 46021584974 Active Checo Conklin MD Active MAGNESIUM CITRATE 1.745 GM/30ML ORAL SOLUTION 150ml po BID P RN Constipation MAGNESIUM CITRATE 08208019532 No Longer Active Checo Conklin MD Active BACTROBAN 2 % EXTERNAL CREAM Apply to affected area BID for up to 10 days MUPIROCIN CALCIUM 60997681995 No Longer Active Checo Conklin MD Active HYDROCODONE-ACETAMINOPHEN 5-325 MG ORAL TABLET 1 tab b y mouth every 6 hours as needed HYDROCODONE-ACETAMINOPHEN 68524837171 No Longer Active Checo Conklin MD Active IBUPROFEN 800 MG ORAL TABLET 1 tab every 8 hours with food 03/20 IBUPROFEN 42855567062 No Longer Active Checo Conklin MD Active DIFLUCAN 150 MG ORAL TABLET 1 tablet by mouth if neede d, hold until symptoms start FLUCONAZOLE 77841777664 No Longer Active Checo Conklin MD Active BACTRIM DS 800-160 MG ORAL TABLET 1 tab by mouth twice daily 201 11/23/03 TRIMETHOPRIM-SULFAMETHOXAZOLE 89990792117 No Longer Active K imberly Whittley, [employer] Active HYDROCODONE-ACETAMINOPHEN 5-325 MG ORAL TABLET 0.5 to 1 tab by mouth every 6 hours as needed HYDROCODONE-ACETAMINOPHEN 84029744502 No Longer Active Checo Conklin MD Active ONDANSETRON 8 MG ORAL TABLET DISINTEGRATING place one tablet on tongue and allow to dissolve every 6 hours as needed for vomitting ONDANSETRON 10411732480 No Longer Active Checo Conklin MD Activ e COMPRO 25 MG RECTAL SUPPOSITORY insert or apply one garza ppository rectally as directed every 12 hours as needed for nausea PROCHLORPERAZINE 65254940207 No Longer Active Checo Conklin MD A ctive SUMATRIPTAN SUCCINATE 100 MG ORAL TABLET Take one PRN for migran e SUMATRIPTAN SUCCINATE 27203972826 No Longer Active Checo Conklin MD Active TRAVEL SICKNESS 25 MG ORAL TABLET CHEWABLE chew and sw allow one tablet every 6 hours as needed MECLIZINE HCL 30568126119 No Longer A ctive Checo Conklin MD Active BUPROPION HCL ER (SR) 100 MG ORAL TABLET EXTENDED RELE ASE 12 HOUR take one tablet by mouth one time daily for one week then take 1 two times daily BUPROPION HCL 57760848927 No Longer Active Checo gallagher MD Active TERBINAFINE HCL 250 MG ORAL TABLET take one table PO one time da moises TERBINAFINE HCL 79620663321 No Longer Active Checo Conklin MD Active METOCLOPRAMIDE HCL 10 MG ORAL TABLET take one PO tid PRN nausea METOCLOPRAMIDE HCL 25256905489 No Longer Active Checo Conklin MD Active DICLOFENAC SODIUM 75 MG ORAL TABLET DELAYED RELEASE 1 tablet by mouth twice daily PRN Knee pain DICLOFENAC SODIUM 30653752456 No Longer Active Checo Conklin MD Active LAMISIL 250 MG ORAL TABLET 1 po qd TERBINAFI NE HCL 39457535585 No Longer Active Checo Conklin MD Active REGLAN 10 MG ORAL TABLET 1 po TID PRN Nausea 3 METOCLOPRAMIDE HCL 18692954592 No Longer Active Checo Conklin MD Active CELEXA 20 MG ORAL TABLET 1 tablet by mouth daily 09/26 CITALOPRAM HYDROBROMIDE 57386723010 No Longer Active Checo Conklin MD Active AZITHROMYCIN 250 MG ORAL TABLET 2 po qd x 1 day, then 1 po q d x 4 days AZITHROMYCIN 31927476873 No Longer Active Checo Ortiz MD Active HYDROCODONE-ACETAMINOPHEN 5-325 MG ORAL TABLET 1 po q 6hr PRN Pa in HYDROCODONE-ACETAMINOPHEN 18963556831 No Longer Active Lenora Conklin MD Active PHENAZOPYRIDINE HCL 200 MG ORAL TABLET take 1 tab po TID for bladder pain PHENAZOPYRIDINE HCL 95579615363 No Longer Active Joe Conklin MD Active CIPRO 500 MG ORAL TABLET 1 tablet by mouth twice daily CIPROFLOXACIN HCL 45169260117 No Longer Active Dangelo Rangel MD Active HYDROCODONE-ACETAMINOPHEN 5-325 MG ORAL TABLET 1/2 to 1 po q 4 hours prn cough HYDROCODONE-ACETAMINOPHEN 92968968306 No Longer Activ e Dangelo Rangel MD Active BACTRIM DS 800-160 MG ORAL TABLET 1 po BID x 7 days 29/04/10 SULFAMETHOXAZOLE-TRIMETHOPRIM 23219163885 No Longer Active Checo Conklin MD Active PREDNISONE 20 MG ORAL TABLET 2 tabs daily for 3 days, 1 tab daily for 3 days, 1/2 tab daily for 2 days PREDNISONE 87986418055 No Longer Active Checo Conklin MD Active TRIAMCINOLONE ACETONIDE 0.1 % EXTERNAL OINTMENT Apply to affected areas TID for up to 2 weeks TRIAMCINOLONE ACETONIDE 04114398177 No Longer Active Checo Conklin MD Active CEFDINIR 300 MG ORAL CAPSULE by mouth twice a day 2013 CEFDINIR 83170019861 No Longer Active Dangelo Rangel MD Acti ve BUPROPION HCL ER (SMOKING DET) 150 MG ORAL TABLET EXTE NDED RELEASE 12 HOUR 1 a day for 1 week then 1 twice a day BUPROPION HCL (SMOKING DETER) 48173376751 No Longer Active Checo Conklin MD Active SIMVASTATIN 20 MG ORAL TABLET 1 po qd SIMVASTAT IN 35690892534 Active Checo Conklin MD Active CHANTIX STARTING MONTH KARTHIK 0.5 MG X 11 & 1 MG X 42 ORA L TABLET 0.5mg daily for 3 days, then 0.5mg BID for 4 days, then 1mg BID VARENICLINE TARTRATE 78233428395 No Longer Active Checo Conklin MD Activ e XANAX 0.5 MG ORAL TABLET 1 po BID PRN anxiety A LPRAZOLAM 29951690907 Active Checo Conklin MD Active CONCERTA 18 MG ORAL TABLET EXTENDED RELEASE 1 po q a.m. METHYLPHENIDATE HCL 44046153443 No Longer Active Checo Conklin MD Active AMBIEN 5 MG ORAL TABLET 1 po qHS PRN Insomnia Z OLPIDEM TARTRATE 62995349668 Active Checo Conklin MD Active TRAZODONE HCL 100 MG ORAL TABLET 0.5 to 1 po qHS PRN Insomnia 20 30/07/08 TRAZODONE HCL 96550993858 No Longer Active Checo Conklin MD Active FIORICET 325-50-40 MG TAB 1 tablet by mouth four times daily as needed [id number] 29185302123 No Longer Active Checo Conklin MD Active PHENERGAN CREAM* 25mg applied to wrist q6hr PRN Nausea PHENERGAN CREAM* No Longer Active Checo Gonzales ctive FLONASE 50 MCG/ACT NASAL SUSPENSION 1 spray each nostril am and hs FLUTICASONE PROPIONATE 27566928081 No Longer Active Checo Conklin MD Active ANTIPYRINE-BENZOCAINE 5.4-1.4 % OTIC SOLUTION 1-2 drops in affec yohannes ear BENZOCAINE-ANTIPYRINE 35801043844 No Longer Active Checo Conklin MD Active CEFDINIR 300 MG ORAL CAPSULE 1 po bid CEFDINIR 41351513066 No Longer Active Checo Conklin MD Active PREDNISONE 20 MG ORAL TABLET 2 tabs daily for 3 days, 1 tab daily for 3 days, 1/2 tab daily for 2 days PREDNISONE 21196613773 No Longer Active Checo Conklin MD Active AZITHROMYCIN 250 MG ORAL TABLET 2 po qd x 1 day, then 1 po q d x 4 days AZITHROMYCIN 53532333076 No Longer Active Checo Ortiz MD Active PREDNISONE 20 MG ORAL TABLET 2 tabs daily for 3 days, 1 tab daily for 3 days, 1/2 tab daily for 2 days PREDNISONE 97526364306 No Longer Active Checo Conklin MD Active ZITHROMAX Z-KARTHIK 250 MG ORAL TABLET 2 today, then 1 daily for 4 d ays AZITHROMYCIN 85437218072 No Longer Active Paul Hamlin MD Active FOCALIN XR 10 MG ORAL CAPSULE EXTENDED RELEASE 24 HOUR 1 po q a. m. DEXMETHYLPHENIDATE HCL 48344919240 No Longer Active Paul Hamlin MD Active PERCOCET 10-325 MG ORAL TABLET 1 tablet every 6 hours as needed for pain OXYCODONE-ACETAMINOPHEN 21062922567 No Longer Active Paul Hamlin MD Active LORTAB 5-500 MG ORAL TABLET 1/2 to 1 tablet by mouth e very 4 hours as needed for pain HYDROCODONE-ACETAMINOPHEN 93159080122 No Longer Active Checo Conklin MD Active FOCALIN XR 15 MG ORAL CAPSULE EXTENDED RELEASE 24 HOUR 1 po q a. m. DEXMETHYLPHENIDATE HCL 17332004149 No Longer Active Checo Conklin MD Active ZOFRAN ODT 4 MG ORAL TABLET DISINTEGRATING 1 po q6hr PRN Nausea ONDANSETRON 22311207545 No Longer Active Checo Conklin MD Active PERCOCET 5-325 MG ORAL TABLET 1 tablet by mouth every 6 hour s as needed OXYCODONE-ACETAMINOPHEN 18540083881 No Longer Active Checo Conklin MD Active PYRIDIUM 200 MG ORAL TABLET take 1 tab po TID prn urinary pain. PHENAZOPYRIDINE HCL 79967619495 No Longer Active Checo Joshua Active FLUCONAZOLE 150 MG ORAL TABLET take 1 tab po qday once FLUCONAZOLE 68273348363 No Longer Active Dangelo Rangel MD Acti ve CIPRO 500 MG ORAL TABLET 1 tablet by mouth twice daily CIPROFLOXACIN HCL 28590585938 No Longer Active Dangelo Rangel MD Active PYRIDIUM 200 MG ORAL TABLET take 1 tab po TID prn urinary pain. PYRIDIUM 200 MG ORAL TABLET 4841480 PHENAZOPYRIDINE HCL Inactive PERCOCET 5-325 MG ORAL TABLET 1 tablet by mouth every 6 hour s as needed PERCOCET 5-325 MG ORAL TABLET 1003549 OXYCODONE-ACETAMINOPHEN Inactive ZOFRAN ODT 4 MG ORAL TABLET DISINTEGRATING 1 po q6hr PRN Nausea ZOFRAN ODT 4 MG ORAL TABLET DISINTEGRATING 119189 ONDAN SETRON Inactive FOCALIN XR 15 MG [...] for pain PERCOCET 10-325 MG ORAL TABLET 6812417 OXYCODONE-ACETAMI NOPHEN Inactive FOCALIN XR 10 MG ORAL CAPSULE EXTENDED RELEASE 24 HOUR 1 po q a. m. FOCALIN XR 10 MG ORAL CAPSULE EXTENDED RELEASE 24 HOUR DEXMETHYLPHENIDATE HCL Inactive CEFDINIR 300 MG ORAL CAPSULE 1 po bid CEFDINI R 300 MG ORAL CAPSULE 248506 CEFDINIR Inactive ANTIPYRINE-BENZOCAINE 5.4-1.4 % OTIC SOLUTION 1-2 drops in affec yohannes ear ANTIPYRINE-BENZOCAINE 5.4-1.4 % OTIC SOLUTION 146619 BENZOCAINE-ANTIPYRINE Inactive FLONASE 50 MCG/ACT NASAL SUSPENSION 1 spray each nostril am and hs FLONASE 50 MCG/ACT NASAL SUSPENSION 6844250 FLUTICASONE PROPIONATE I nactive PHENERGAN CREAM* 25mg applied to wrist q6hr PRN Nausea PHENERGAN CREAM* Inactive FIORICET 325-50-40 MG TAB 1 tablet by mouth four times daily as needed FIORICET 325-50-40 MG TAB ACETAMINOPHEN-C AFF-BUTALBITAL Inactive TRAZODONE HCL 100 MG ORAL TABLET 0.5 to 1 po qHS PRN Insomnia 20 30/07/08 TRAZODONE HCL 100 MG ORAL TABLET 325516 TRAZODONE HCL Inactive CONCERTA 18 MG ORAL [...] cough HYDROCODONE-ACETAMINOPHEN 5-325 MG ORAL TABLET 8 99728 HYDROCODONE-ACETAMINOPHEN Inactive PHENAZOPYRIDINE HCL 200 MG ORAL TABLET take 1 tab po TID for bladder pain PHENAZOPYRIDINE HCL 200 MG ORAL TABLET 0446763 PHENAZOPYRIDINE HCL Inactive HYDROCODONE-ACETAMINOPHEN 5-325 MG ORAL TABLET 1 po q 6hr PRN Pa in HYDROCODONE-ACETAMINOPHEN 5-325 MG ORAL TABLET 191053 HYDROCODONE-ACETAMINOPHEN Inactive CELEXA 20 MG ORAL TABLET 1 tablet by mouth daily 09/26 CELEXA 20 MG ORAL TABLET 198422 CITALOPRAM HYDROBROMIDE Inactive REGLAN 10 MG ORAL TABLET 1 po TID PRN Nausea 3 REGLAN 10 MG ORAL TABLET 553818 METOCLOPRAMIDE HCL Inactive LAMISIL 250 MG ORAL TABLET 1 po qd L AMISIL 250 MG ORAL TABLET 446678 TERBINAFINE HCL Inactive DICLOFENAC SODIUM 75 MG ORAL TABLET DELAYED RELEASE 1 tablet by mouth twice daily PRN Knee pain DICLOFENAC SODIUM 75 MG ORAL TABLET DELAYED RELEASE 150383 DICLOFENAC SODIUM Inactive METOCLOPRAMIDE HCL 10 MG ORAL TABLET take one PO tid PRN nausea METOCLOPRAMIDE HCL 10 MG ORAL TABLET 976943 METOCLOPRAM ZACH HCL Inactive TERBINAFINE HCL 250 MG ORAL TABLET take one table PO one time da moises TERBINAFINE HCL 250 MG ORAL TABLET 796179 TERBINAFINE H CL Inactive BUPROPION HCL ER [...] SICKNESS 25 M G ORAL TABLET CHEWABLE 239475 MECLIZINE HCL Inactive SUMATRIPTAN SUCCINATE 100 MG ORAL TABLET Take one PRN for migran e SUMATRIPTAN SUCCINATE 100 MG ORAL TABLET 754169 SUMATRIPTAN SUCCINATE Inactive COMPRO 25 MG RECTAL SUPPOSITORY insert or apply one garza ppository rectally as directed every 12 hours as needed for nausea COMPRO 25 MG RECTAL SUPPOSITORY 193908 PROCHLORPERAZINE Inactive ONDANSETRON 8 MG ORAL TABLET DISINTEGRATING place one tablet on tongue and allow to dissolve every 6 hours as needed for vomitting ONDANSETRON 8 MG ORAL TABLET DISINTEGRATING 187224 ONDANSETRON Inactive HYDROCODONE-ACETAMINOPHEN 5-325 MG ORAL TABLET 0.5 to 1 tab by mouth every 6 hours as needed HYDROCODONE-ACETAMIN OPHEN 5-325 MG ORAL TABLET 609334 HYDROCODONE-ACETAMINOPHEN Inactive BACTRIM DS 800-160 MG ORAL TABLET 1 tab by mouth twice daily 201 11/23/03 BACTRIM DS 800-160 MG ORAL TABLET 325855 TRIMETHOPRIM-SULFAMETHOXAZOLE Inactive DIFLUCAN 150 MG ORAL TABLET 1 tablet by mouth if neede d, hold until symptoms start DIFLUCAN 150 MG ORAL TABLET 356894 FLUCONAZ OLE Inactive IBUPROFEN 800 MG ORAL TABLET 1 tab every 8 hours with food 03/20 IBUPROFEN 800 MG ORAL TABLET IBUPROFEN Krupa ctive HYDROCODONE-ACETAMINOPHEN 5-325 MG ORAL TABLET 1 tab b y mouth every 6 hours as needed HYDROCODONE-ACETAMINOPHEN 5-325 MG ORAL TABLET 366244 HYDROCODONE-ACETAMINOPHEN Inactive BACTROBAN 2 % EXTERNAL CREAM Apply to affected area BID for up to 10 days BACTROBAN 2 % EXTERNAL CREAM 961574 MUPIROCIN CA LCIUM Inactive MAGNESIUM CITRATE 1.745 GM/30ML ORAL SOLUTION 150ml po BID P RN Constipation MAGNESIUM CITRATE 1.745 GM/30ML ORAL SOLUTION 10 93094 MAGNESIUM CITRATE Inactive DIFLUCAN 150 MG ORAL TABLET 1 tablet by mouth qod 2015 DIFLUCAN 150 MG ORAL TABLET 394033 FLUCONAZOLE Inactive BACTRIM DS 800-160 MG ORAL TABLET 1 tab by mouth twice daily 201 12/19/26 BACTRIM DS 800-160 MG ORAL TABLET 217176 TRIMETHOPRIM-SULFAMETHOXAZOLE Inactive CLARITIN 10 MG ORAL TABLET 1 tablet by mouth daily as needed for allergies CLARITIN 10 MG ORAL TABLET 098762 LORATADINE I nactive FLUTICASONE PROPIONATE 50 MCG/ACT NASAL SUSPENSION 2 s prays/nostril qd PRN Congestion/Allergies FLUTICASONE PROPION ATE 50 MCG/ACT NASAL SUSPENSION 3928395 FLUTICASONE PROPIONATE Inactive MIRALAX ORAL POWDER 8.5 to 17g po qd PRN Constipation MIRALAX ORAL POWDER 993620 POLYETHYLENE GLYCOL 3350 Inactive CIPRO 500 MG ORAL TABLET 1 tablet by mouth twice daily CIPRO 500 MG ORAL TABLET 002211 CIPROFLOXACIN HCL Inactive FLUCONAZOLE 150 MG ORAL TABLET take 1 tab po qday once FLUCONAZOLE 150 MG ORAL TABLET 016625 FLUCONAZOLE Inactive ZITHROMAX Z-KARTHIK 250 MG ORAL TABLET 2 today, then 1 daily for 4 d ays ZITHROMAX Z-KARTHIK 250 MG ORAL TABLET 673890 AZITHROMYCIN Inactive PREDNISONE 20 MG ORAL TABLET 2 tabs daily for 3 days, 1 tab daily for 3 days, 1/2 tab daily for 2 days PREDNISONE 20 MG ORAL T ABLET 893534 PREDNISONE Inactive AZITHROMYCIN 250 MG ORAL TABLET 2 po qd x 1 day, then 1 po q d x 4 days AZITHROMYCIN 250 MG ORAL TABLET 390399 AZITHROMY SPARKLE Inactive PREDNISONE 20 MG ORAL TABLET 2 tabs daily for 3 days, 1 tab daily for 3 days, 1/2 tab daily for 2 days PREDNISONE 20 MG ORAL TABLET 395262 PREDNISONE Inactive CEFDINIR 300 MG ORAL CAPSULE by mouth twice a day 2013 CEFDINIR 300 MG ORAL CAPSULE 787529 CEFDINIR Inactive TRIAMCINOLONE ACETONIDE 0.1 % EXTERNAL OINTMENT Apply to affected areas TID for up to 2 weeks TRIAMCINOLONE ACETON ZACH 0.1 % EXTERNAL OINTMENT 4526398 TRIAMCINOLONE ACETONIDE Inactive PREDNISONE 20 MG ORAL TABLET 2 tabs daily for 3 days, 1 tab daily for 3 days, 1/2 tab daily for 2 days PREDNISONE 20 MG ORAL T ABLET 009864 PREDNISONE Inactive BACTRIM DS 800-160 MG ORAL TABLET 1 po BID x 7 days 29/04/10 BACTRIM DS 800-160 MG ORAL TABLET 758354 SULFAMETHOXAZOLE-TRIMETHOP RIM Inactive CIPRO 500 MG ORAL TABLET 1 tablet by mouth twice daily CIPRO 500 MG ORAL TABLET 819873 CIPROFLOXACIN HCL Inactive AZITHROMYCIN 250 MG ORAL TABLET 2 po qd x 1 day, then 1 po q d x 4 days AZITHROMYCIN 250 MG ORAL TABLET 400090 AZITHROMY SPARKLE Inactive FLAGYL 500 MG ORAL TABLET 1 tablet by mouth bid 04/13 FLAGYL 500 MG ORAL TABLET 861740 METRONIDAZOLE Inactive AZITHROMYCIN 250 MG ORAL TABLET 2 po qd x 1 day, then 1 po q d x 4 days AZITHROMYCIN 250 MG ORAL TABLET 620731 AZITHROMY SPARKLE Inactive AMOXICILLIN 500 MG ORAL CAPSULE 2 po BID x 10 days 201 01/15/27 AMOXICILLIN 500 MG ORAL CAPSULE 349607 AMOXICILLIN Inactive AMOXICILLIN 500 MG ORAL CAPSULE 2 po BID x 14 days for H. Pylori AMOXICILLIN 500 MG ORAL CAPSULE 747816 AMOXICILLIN Inactive CLARITHROMYCIN 500 MG ORAL TABLET 1 tab po BID x 14 days CLARITHROMYCIN 500 MG ORAL TABLET 467365 CLARITHROMYCIN Inacti ve FLAGYL 500 MG ORAL TABLET 1 tablet by mouth bid 08/29 FLAGYL 500 MG ORAL TABLET 761100 METRONIDAZOLE Inactive PROTONIX 40 MG ORAL TABLET DELAYED RELEASE 1 pill by m outh daily, for acid reflux PROTONIX 40 MG ORAL TABLET DELAYED RELEAS E 819612 PANTOPRAZOLE SODIUM Inactive Immunizations Vaccine Administration Date [...] ... - Chemistry sodium, serum 139 mmol/L 179-483 5959/11/28 carbon dioxide, venous blood 26.0 mmol/L 21.0-32 [...] 5.0-8.5 Encounters Code Encounter Date Provider Facility CPT-09518 Level 4 Est. Patient 08:57:51 OUTREACH ASSOCIATE Checo Conklin MD [facility] CPT-87083 Level 3 Est. Patient 11:24:55 OUTREACH ASSOCIATE Efren almendarez APRN [facility] CPT-29777 Level 3 Est. Patient 13:05:44 CDT Paul Hamlin MD [facility] CPT-48371 Level 3 Est. Patient 11:29:55 CDT Checo Conklin MD [facility] CPT-18013 Level 4 Est. Patient 11:08:12 OUTREACH ASSOCIATE Checo Conklin MD [facility] CPT-35856 Level 4 Est. Patient 16:06:48 OUTREACH ASSOCIATE Checo Conklin MD [facility] CPT-17003 Level 3 Est. Patient 09:11:49 CDT Efren Nicolas almendarez [facility] CPT-57697 Level 2 Est. Patient 19:53:27 CDT Tanner hill MD [facility]-53275 Level 3 Est. Patient 09:15:34 CDT Efren Nicolas almendarez [facility] CPT-69871 Level 3 Est. Patient 11:28:51 OUTREACH ASSOCIATE Efren Nicolas sagastumerico [facility] CPT-30409 Level 4 Est. Patient 13:55:46 OUTREACH ASSOCIATE Checo Conklin MD [facility] CPT-01059 Level 4 Est. Patient 17:10:53 CDT Checo Conklin MD [facility] CPT-24696 Level 3 Est. Patient 15:56:22 CDT Checo Conklin MD [facility] CPT-96986 Level 3 Est. Patient 15:29:07 CDT Checo Conklin MD [facility] CPT-10170 Level 3 Est. Patient 14:38:41 CDT Checo Conklin MD [facility] CPT-68112 Level 3 Est. Patient 15:22:03 OUTREACH ASSOCIATE Thomas reynolds DO [facility] CPT-51540 Level 3 Est. Patient 13:34:17 OUTREACH ASSOCIATE Checo Conklin MD [facility] CPT-47386 Level 3 Est. Patient 12:29:32 CDT Dangelo arroyo MD [facility] CPT-90310 Level 3 Est. Patient 16:53:02 CDT Checo Conklin MD [facility] CPT-87271 Level 3 Est. Patient 16:37:13 CDT Checo Conklin MD [facility] CPT-10132 Level 3 Est. Patient 16:16:59 CDT Paul Hamlin MD [facility] CPT-65564 Level 3 Est. Patient 14:20:13 CDT Dangelo arroyo MD [facility] CPT-18310 Level 4 Est. Patient 11:29:33 CDT Checo Conklin MD [facility] CPT-51990 Level 3 Est. Patient 17:08:31 CDT Checo Conklin MD [facility] CPT-25403 Level 3 Est. Patient 16:50:42 OUTREACH ASSOCIATE Checo Conklin MD [facility] CPT-32629 Level 4 Est. Patient 09:26:08 OUTREACH ASSOCIATE Checo Conklin MD [facility] CPT-00930 Level 3 Est. Patient 11:37:10 CDT Checo Conklin MD [facility] CPT-20477 Level 4 Est. Patient 14:07:38 CDT Checo Conklin MD [facility] CPT-24133 Level 3 Est. Patient 09:54:41 CDT Checo Conklin MD [facility] CPT-03579 Level 3 Est. Patient 11:10:54 CDT Paul Hamlin MD [facility] CPT-66682 Level 3 Est. Patient 14:16:56 OUTREACH ASSOCIATE Checo Conklin MD [facility] CPT-91391 Level 3 Est. Patient 11:04:11 OUTREACH ASSOCIATE Checo Conklin MD [facility] CPT-84096 Level 3 Est. Patient 17:09:26 CDT Dangelo arroyo MD [facility] CPT-38944 Level 3 Est. Patient 16:54:37 CDT Checo Conklin MD [facility] Procedures Code Procedure Name Date Entry Date Standard Desc ription CPT-80245 Wrist, right, comp 3V - XRAY USE ONLY 09:24:31 CDT CPT-27031 Abd compl w upright - XRAY USE ONLY 1 1:36:54 OUTREACH ASSOCIATE CPT-89862 UA w micro - LAB USE ONLY 17:06:46 CDT 2015 CPT-63648 BHCG Qual - LAB USE ONLY 17:06:46 CDT 05/06 CPT-32424 CMP - LAB USE ONLY 17:06:46 CDT CPT-42361 CBC with Diff - LAB USE ONLY 17:06:45 CDT 2 CPT-18088 Venipuncture Draw Fee 17:06:45 CDT CPT-LR Lesion Removal 19:53:27 CDT CPT-OV Office Visit 11:31:28 CDT CPT-68668 Tubersol 09:39:29 CDT CPT-J2550 Phenergan 25 mg (Promethazine) 13:59:02 OUTREACH ASSOCIATE CPT-J1885 Toradol 60 mg (Ketorolac) 13:59:02 OUTREACH ASSOCIATE 2012
--- OUTSIDE RECORDS SUMMARY | 2019-09-29 01:57 | XMS REPORT | Clinical Summary ---
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 Cheoc Conklin MD Abdominal pain, generalized ICD-789.07 Inactive Checo Conklin MD Urinary frequency ICD-788.41 Inactive Checo Conklin MD Sinusitis, acute ICD-461.9 Inactive Checo Ortiz MD Pharyngitis ICD-462 Inactive Checo Conklin MD Cough ICD-786.2 Inactive Checo Conklin MD 2016 Medication List Medication Instructions Start Date Stop Date Generic Name NDC Status Provider Patient Instruction PAROXETINE HCL 20 MG ORAL TABLET 1.5 po qd PAR OXETINE HCL 84237562708 Active Checo Conklin MD Active FLUTICASONE PROPIONATE 50 MCG/ACT NASAL SUSPENSION 2 s prays/nostril qd PRN Congestion/Allergies FLUTICASONE PROPIONATE [id number] 9 No Longer Active Checo Conklin MD Active AMOXICILLIN 500 MG ORAL CAPSULE 2 po BID x 10 days 201 01/15/27 AMOXICILLIN 59443545107 No Longer Active Checo Conklin MD Activ e MIRALAX ORAL POWDER 8.5 to 17g po qd PRN Constipation POLYETHYLENE GLYCOL 3350 68817791942 Active Checo Conklin MD Active CLARITIN 10 MG ORAL TABLET 1 tablet by mouth daily as needed for allergies LORATADINE 40158958153 No Longer Active Checo Ortiz MD Active BACTRIM DS 800-160 MG ORAL TABLET 1 tab by mouth twice daily 201 12/19/26 TRIMETHOPRIM-SULFAMETHOXAZOLE 29376002945 No Longer Active Ragini Carrillo MD Active DIFLUCAN 150 MG ORAL TABLET 1 tablet by mouth qod 2015 FLUCONAZOLE 39516525904 No Longer Active Efren Medel [employer] Act mike AZITHROMYCIN 250 MG ORAL TABLET 2 po qd x 1 day, then 1 po q d x 4 days AZITHROMYCIN 49802284945 No Longer Active Efren flores [employer] Active FLAGYL 500 MG ORAL TABLET 1 tablet by mouth bid 04/13 METRONIDAZOLE 23685790272 No Longer Active Checo Conklin MD Acti ve FOCALIN XR 10 MG ORAL CAPSULE EXTENDED RELEASE 24 HOUR 1 po q a.m. DEXMETHYLPHENIDATE HCL 85797717573 Active Checo Conklin MD Active MAGNESIUM CITRATE 1.745 GM/30ML ORAL SOLUTION 150ml po BID P RN Constipation MAGNESIUM CITRATE 50137832036 No Longer Active Checo Conklin MD Active BACTROBAN 2 % EXTERNAL CREAM Apply to affected area BID for up to 10 days MUPIROCIN CALCIUM 28500389763 No Longer Active Checo Conklin MD Active HYDROCODONE-ACETAMINOPHEN 5-325 MG ORAL TABLET 1 tab b y mouth every 6 hours as needed HYDROCODONE-ACETAMINOPHEN 86994944223 No Longer Active Checo Conklin MD Active IBUPROFEN 800 MG ORAL TABLET 1 tab every 8 hours with food 03/20 IBUPROFEN 68988939226 No Longer Active Checo Conklin MD Active DIFLUCAN 150 MG ORAL TABLET 1 tablet by mouth if neede d, hold until symptoms start FLUCONAZOLE 21010165552 No Longer Active Checo Conklin MD Active BACTRIM DS 800-160 MG ORAL TABLET 1 tab by mouth twice daily 201 11/23/03 TRIMETHOPRIM-SULFAMETHOXAZOLE 80423477865 No Longer Active K bernice Méndez LPN Active HYDROCODONE-ACETAMINOPHEN 5-325 MG ORAL TABLET 0.5 to 1 tab by mouth every 6 hours as needed HYDROCODONE-ACETAMINOPHEN 28298253688 No Longer Active Checo Conklin MD Active ONDANSETRON 8 MG ORAL TABLET DISINTEGRATING place one tablet on tongue and allow to dissolve every 6 hours as needed for vomitting ONDANSETRON 48310735282 No Longer Active Checo Conklin MD Activ e COMPRO 25 MG RECTAL SUPPOSITORY insert or apply one garza ppository rectally as directed every 12 hours as needed for nausea PROCHLORPERAZINE 02339043718 No Longer Active Checo Conklin MD A ctive SUMATRIPTAN SUCCINATE 100 MG ORAL TABLET Take one PRN for migran e SUMATRIPTAN SUCCINATE 99292858684 No Longer Active Checo Conklin MD Active TRAVEL SICKNESS 25 MG ORAL TABLET CHEWABLE chew and sw allow one tablet every 6 hours as needed MECLIZINE HCL 81122615973 No Longer A ctive Checo Conklin MD Active BUPROPION HCL ER (SR) 100 MG ORAL TABLET EXTENDED RELE ASE 12 HOUR take one tablet by mouth one time daily for one week then take 1 two times daily BUPROPION HCL 95195509360 No Longer Active Checo gallagher MD Active TERBINAFINE HCL 250 MG ORAL TABLET take one table PO one time da moises TERBINAFINE HCL 05137792001 No Longer Active Checo Conklin MD Active METOCLOPRAMIDE HCL 10 MG ORAL TABLET take one PO tid PRN nausea METOCLOPRAMIDE HCL 06450938895 No Longer Active Checo Conklin MD Active DICLOFENAC SODIUM 75 MG ORAL TABLET DELAYED RELEASE 1 tablet by mouth twice daily PRN Knee pain DICLOFENAC SODIUM 12497195863 No Longer Active Checo Conklin MD Active LAMISIL 250 MG ORAL TABLET 1 po qd TERBINAFI NE HCL 42155202799 No Longer Active Checo Conklin MD Active REGLAN 10 MG ORAL TABLET 1 po TID PRN Nausea 3 METOCLOPRAMIDE HCL 49076808192 No Longer Active Checo Conklin MD Active CELEXA 20 MG ORAL TABLET 1 tablet by mouth daily 09/26 CITALOPRAM HYDROBROMIDE 12612928569 No Longer Active Checo Conklin MD Active AZITHROMYCIN 250 MG ORAL TABLET 2 po qd x 1 day, then 1 po q d x 4 days AZITHROMYCIN 28670045296 No Longer Active Checo Ortiz MD Active HYDROCODONE-ACETAMINOPHEN 5-325 MG ORAL TABLET 1 po q 6hr PRN Pa in HYDROCODONE-ACETAMINOPHEN 49454835409 No Longer Active Lenora Conklin MD Active PHENAZOPYRIDINE HCL 200 MG ORAL TABLET take 1 tab po TID for bladder pain PHENAZOPYRIDINE HCL 74081753978 No Longer Active Joe Conklin MD Active CIPRO 500 MG ORAL TABLET 1 tablet by mouth twice daily CIPROFLOXACIN HCL 84642871605 No Longer Active Dangelo Rangel MD Active HYDROCODONE-ACETAMINOPHEN 5-325 MG ORAL TABLET 1/2 to 1 po q 4 hours prn cough HYDROCODONE-ACETAMINOPHEN 27714933310 No Longer Activ e Dangelo Rangel MD Active BACTRIM DS 800-160 MG ORAL TABLET 1 po BID x 7 days 29/04/10 SULFAMETHOXAZOLE-TRIMETHOPRIM 83782946968 No Longer Active Checo Conklin MD Active PREDNISONE 20 MG ORAL TABLET 2 tabs daily for 3 days, 1 tab daily for 3 days, 1/2 tab daily for 2 days PREDNISONE 80591958516 No Longer Active Checo Conklin MD Active TRIAMCINOLONE ACETONIDE 0.1 % EXTERNAL OINTMENT Apply to affected areas TID for up to 2 weeks TRIAMCINOLONE ACETONIDE 65836618835 No Longer Active Checo Conklin MD Active CEFDINIR 300 MG ORAL CAPSULE by mouth twice a day 2013 CEFDINIR 11052798927 No Longer Active Dangelo Rangel MD Acti ve BUPROPION HCL ER (SMOKING DET) 150 MG ORAL TABLET EXTE NDED RELEASE 12 HOUR 1 a day for 1 week then 1 twice a day BUPROPION HCL (SMOKING DETER) 31193690749 No Longer Active Checo Conklin MD Active SIMVASTATIN 20 MG ORAL TABLET 1 po qd SIMVASTAT IN 07046035224 Active Checo Conklin MD Active CHANTIX STARTING MONTH KARTHIK 0.5 MG X 11 & 1 MG X 42 ORA L TABLET 0.5mg daily for 3 days, then 0.5mg BID for 4 days, then 1mg BID VARENICLINE TARTRATE 21573260892 No Longer Active Checo Conklin MD Activ e XANAX 0.5 MG ORAL TABLET 1 po BID PRN anxiety A LPRAZOLAM 64993783560 Active Checo Conklin MD Active CONCERTA 18 MG ORAL TABLET EXTENDED RELEASE 1 po q a.m. METHYLPHENIDATE HCL 02260636507 No Longer Active Checo Conklin MD Active AMBIEN 5 MG ORAL TABLET 1 po qHS PRN Insomnia Z OLPIDEM TARTRATE 79749329104 Active Checo Conklin MD Active TRAZODONE HCL 100 MG ORAL TABLET 0.5 to 1 po qHS PRN Insomnia 20 30/07/08 TRAZODONE HCL 61972821707 No Longer Active Checo Conklin MD Active FIORICET 325-50-40 MG TAB 1 tablet by mouth four times daily as needed [id number] 64510837982 No Longer Active Checo Conklin MD Active PHENERGAN CREAM* 25mg applied to wrist q6hr PRN Nausea PHENERGAN CREAM* No Longer Active Checo Gonzales ctive FLONASE 50 MCG/ACT NASAL SUSPENSION 1 spray each nostril am and hs FLUTICASONE PROPIONATE 74251723711 No Longer Active Checo Conklin MD Active ANTIPYRINE-BENZOCAINE 5.4-1.4 % OTIC SOLUTION 1-2 drops in affec yohannes ear BENZOCAINE-ANTIPYRINE 63232547083 No Longer Active Checo Conklin MD Active CEFDINIR 300 MG ORAL CAPSULE 1 po bid CEFDINIR 18265243064 No Longer Active Checo Conklin MD Active PREDNISONE 20 MG ORAL TABLET 2 tabs daily for 3 days, 1 tab daily for 3 days, 1/2 tab daily for 2 days PREDNISONE 68780719875 No Longer Active Checo Conklin MD Active AZITHROMYCIN 250 MG ORAL TABLET 2 po qd x 1 day, then 1 po q d x 4 days AZITHROMYCIN 50238478523 No Longer Active Checo Ortiz MD Active PREDNISONE 20 MG ORAL TABLET 2 tabs daily for 3 days, 1 tab daily for 3 days, 1/2 tab daily for 2 days PREDNISONE 42911093026 No Longer Active Checo Conklin MD Active ZITHROMAX Z-KARTHIK 250 MG ORAL TABLET 2 today, then 1 daily for 4 d ays AZITHROMYCIN 10425670832 No Longer Active Paul Hamlin MD Active FOCALIN XR 10 MG ORAL CAPSULE EXTENDED RELEASE 24 HOUR 1 po q a. m. DEXMETHYLPHENIDATE HCL 46079406851 No Longer Active Paul Hamlin MD Active PERCOCET 10-325 MG ORAL TABLET 1 tablet every 6 hours as needed for pain OXYCODONE-ACETAMINOPHEN 30481044141 No Longer Active Paul Hamlin MD Active LORTAB 5-500 MG ORAL TABLET 1/2 to 1 tablet by mouth e very 4 hours as needed for pain HYDROCODONE-ACETAMINOPHEN 37610494781 No Longer Active Checo Conklin MD Active FOCALIN XR 15 MG ORAL CAPSULE EXTENDED RELEASE 24 HOUR 1 po q a. m. DEXMETHYLPHENIDATE HCL 61047000451 No Longer Active Checo Conklin MD Active ZOFRAN ODT 4 MG ORAL TABLET DISINTEGRATING 1 po q6hr PRN Nausea ONDANSETRON 99789238420 No Longer Active Checo Conklin MD Active PERCOCET 5-325 MG ORAL TABLET 1 tablet by mouth every 6 hour s as needed OXYCODONE-ACETAMINOPHEN 11788162449 No Longer Active Checo Conklin MD Active PYRIDIUM 200 MG ORAL TABLET take 1 tab po TID prn urinary pain. PHENAZOPYRIDINE HCL 18421907175 No Longer Active Checo Joshua Active FLUCONAZOLE 150 MG ORAL TABLET take 1 tab po qday once FLUCONAZOLE 50837815950 No Longer Active Dangelo Rangel MD Acti ve CIPRO 500 MG ORAL TABLET 1 tablet by mouth twice daily CIPROFLOXACIN HCL 74091282021 No Longer Active Dangelo Rangel MD Active PYRIDIUM 200 MG ORAL TABLET take 1 tab po TID prn urinary pain. PYRIDIUM 200 MG ORAL TABLET 8981893 PHENAZOPYRIDINE HCL Inactive PERCOCET 5-325 MG ORAL TABLET 1 tablet by mouth every 6 hour s as needed PERCOCET 5-325 MG ORAL TABLET 1929085 OXYCODONE-ACETAMINOPHEN Inactive ZOFRAN ODT 4 MG ORAL TABLET DISINTEGRATING 1 po q6hr PRN Nausea ZOFRAN ODT 4 MG ORAL TABLET DISINTEGRATING 839609 ONDAN SETRON Inactive FOCALIN XR 15 MG ORAL CAPSULE EXTENDED RELEASE 24 HOUR 1 po q a. m. FOCALIN XR 15 MG ORAL CAPSULE EXTENDED RELEASE 24 HOUR DEXMETHYLPHENIDATE HCL Inactive LORTAB 5-500 MG ORAL TABLET 1/2 to 1 tablet by mouth e very 4 hours as needed for pain LORTAB 5-500 MG ORAL TABLET 221755 HYDROCODONE-ACETAMINOPHEN Inactive PERCOCET 10-325 MG ORAL TABLET 1 tablet every 6 hours as needed for pain PERCOCET 10-325 MG ORAL TABLET 8187888 OXYCODONE-ACETAMI NOPHEN Inactive FOCALIN XR 10 MG ORAL CAPSULE EXTENDED RELEASE 24 HOUR 1 po q a. m. FOCALIN XR 10 MG ORAL CAPSULE EXTENDED RELEASE 24 HOUR DEXMETHYLPHENIDATE HCL Inactive CEFDINIR 300 MG ORAL CAPSULE 1 po bid CEFDINI R 300 MG ORAL CAPSULE 541087 CEFDINIR Inactive ANTIPYRINE-BENZOCAINE 5.4-1.4 % OTIC SOLUTION 1-2 drops in affec yohannes ear ANTIPYRINE-BENZOCAINE 5.4-1.4 % OTIC SOLUTION 435282 BENZOCAINE-ANTIPYRINE Inactive FLONASE 50 MCG/ACT NASAL SUSPENSION 1 spray each nostril am and hs FLONASE 50 MCG/ACT NASAL SUSPENSION 4987985 FLUTICASONE PROPIONATE I nactive PHENERGAN CREAM* 25mg applied to wrist q6hr PRN Nausea PHENERGAN CREAM* Inactive FIORICET 325-50-40 MG TAB 1 tablet by mouth four times daily as needed FIORICET 325-50-40 MG TAB ACETAMINOPHEN-C AFF-BUTALBITAL Inactive TRAZODONE HCL 100 MG ORAL TABLET 0.5 to 1 po qHS PRN Insomnia 20 30/07/08 TRAZODONE HCL 100 MG ORAL TABLET 249874 TRAZODONE HCL Inactive CONCERTA 18 MG ORAL [...] cough HYDROCODONE-ACETAMINOPHEN 5-325 MG ORAL TABLET 8 57391 HYDROCODONE-ACETAMINOPHEN Inactive PHENAZOPYRIDINE HCL 200 MG ORAL TABLET take 1 tab po TID for bladder pain PHENAZOPYRIDINE HCL 200 MG ORAL TABLET 8086039 PHENAZOPYRIDINE HCL Inactive HYDROCODONE-ACETAMINOPHEN 5-325 MG ORAL TABLET 1 po q 6hr PRN Pa in HYDROCODONE-ACETAMINOPHEN 5-325 MG ORAL TABLET 545206 HYDROCODONE-ACETAMINOPHEN Inactive CELEXA 20 MG ORAL TABLET 1 tablet by mouth daily 09/26 CELEXA 20 MG ORAL TABLET 050856 CITALOPRAM HYDROBROMIDE Inactive REGLAN 10 MG ORAL TABLET 1 po TID PRN Nausea 3 REGLAN 10 MG ORAL TABLET 594338 METOCLOPRAMIDE HCL Inactive LAMISIL 250 MG ORAL TABLET 1 po qd L AMISIL 250 MG ORAL TABLET 899382 TERBINAFINE HCL Inactive DICLOFENAC SODIUM 75 MG ORAL TABLET DELAYED RELEASE 1 tablet by mouth twice daily PRN Knee pain DICLOFENAC SODIUM 75 MG ORAL TABLET DELAYED RELEASE 132043 DICLOFENAC SODIUM Inactive METOCLOPRAMIDE HCL 10 MG ORAL TABLET take one PO tid PRN nausea METOCLOPRAMIDE HCL 10 MG ORAL TABLET 847781 METOCLOPRAM ZACH HCL Inactive TERBINAFINE HCL 250 MG ORAL TABLET take one table PO one time da moises TERBINAFINE HCL 250 MG ORAL TABLET 792499 TERBINAFINE H CL Inactive BUPROPION HCL ER [...] SICKNESS 25 M G ORAL TABLET CHEWABLE 361975 MECLIZINE HCL Inactive SUMATRIPTAN SUCCINATE 100 MG ORAL TABLET Take one PRN for migran e SUMATRIPTAN SUCCINATE 100 MG ORAL TABLET 397388 SUMATRIPTAN SUCCINATE Inactive COMPRO 25 MG RECTAL SUPPOSITORY insert or apply one garza ppository rectally as directed every 12 hours as needed for nausea COMPRO 25 MG RECTAL SUPPOSITORY 525191 PROCHLORPERAZINE Inactive ONDANSETRON 8 MG ORAL TABLET DISINTEGRATING place one tablet on tongue and allow to dissolve every 6 hours as needed for vomitting ONDANSETRON 8 MG ORAL TABLET DISINTEGRATING 877173 ONDANSETRON Inactive HYDROCODONE-ACETAMINOPHEN 5-325 MG ORAL TABLET 0.5 to 1 tab by mouth every 6 hours as needed HYDROCODONE-ACETAMIN OPHEN 5-325 MG ORAL TABLET 708591 HYDROCODONE-ACETAMINOPHEN Inactive BACTRIM DS 800-160 MG ORAL TABLET 1 tab by mouth twice daily 201 11/23/03 BACTRIM DS 800-160 MG ORAL TABLET 621719 TRIMETHOPRIM-SULFAMETHOXAZOLE Inactive DIFLUCAN 150 MG ORAL TABLET 1 tablet by mouth if neede d, hold until symptoms start DIFLUCAN 150 MG ORAL TABLET 512006 FLUCONAZ OLE Inactive IBUPROFEN 800 MG ORAL TABLET 1 tab every 8 hours with food 03/20 IBUPROFEN 800 MG ORAL TABLET 788738 IBUPROFEN Krupa ctive HYDROCODONE-ACETAMINOPHEN 5-325 MG ORAL TABLET 1 tab b y mouth every 6 hours as needed HYDROCODONE-ACETAMINOPHEN 5-325 MG ORAL TABLET 926365 HYDROCODONE-ACETAMINOPHEN Inactive BACTROBAN 2 % EXTERNAL CREAM Apply to affected area BID for up to 10 days BACTROBAN 2 % EXTERNAL CREAM 452851 MUPIROCIN CA LCIUM Inactive MAGNESIUM CITRATE 1.745 GM/30ML ORAL SOLUTION 150ml po BID P RN Constipation MAGNESIUM CITRATE 1.745 GM/30ML ORAL SOLUTION 10 65169 MAGNESIUM CITRATE Inactive DIFLUCAN 150 MG ORAL TABLET 1 tablet by mouth qod 2015 DIFLUCAN 150 MG ORAL TABLET 570284 FLUCONAZOLE Inactive BACTRIM DS 800-160 MG ORAL TABLET 1 tab by mouth twice daily 201 12/19/26 BACTRIM DS 800-160 MG ORAL TABLET 784690 TRIMETHOPRIM-SULFAMETHOXAZOLE Inactive CLARITIN 10 MG ORAL TABLET 1 tablet by mouth daily as needed for allergies CLARITIN 10 MG ORAL TABLET 799408 LORATADINE I nactive FLUTICASONE PROPIONATE 50 MCG/ACT NASAL SUSPENSION 2 s prays/nostril qd PRN Congestion/Allergies FLUTICASONE PROPION ATE 50 MCG/ACT NASAL SUSPENSION 7574765 FLUTICASONE PROPIONATE Inactive CIPRO 500 MG ORAL TABLET 1 tablet by mouth twice daily CIPRO 500 MG ORAL TABLET 305591 CIPROFLOXACIN HCL Inactive FLUCONAZOLE 150 MG ORAL TABLET take 1 tab po qday once FLUCONAZOLE 150 MG ORAL TABLET 629190 FLUCONAZOLE Inactive ZITHROMAX Z-KARTHIK 250 MG ORAL TABLET 2 today, then 1 daily for 4 d ays ZITHROMAX Z-KARTHIK 250 MG ORAL TABLET 741602 AZITHROMYCIN Inactive PREDNISONE 20 MG ORAL TABLET 2 tabs daily for 3 days, 1 tab daily for 3 days, 1/2 tab daily for 2 days PREDNISONE 20 MG ORAL T ABLET 285900 PREDNISONE Inactive AZITHROMYCIN 250 MG ORAL TABLET 2 po qd x 1 day, then 1 po q d x 4 days AZITHROMYCIN 250 MG ORAL TABLET 719658 AZITHROMY SPARKLE Inactive PREDNISONE 20 MG ORAL TABLET 2 tabs daily for 3 days, 1 tab daily for 3 days, 1/2 tab daily for 2 days PREDNISONE 20 MG ORAL TABLET 699750 PREDNISONE Inactive CEFDINIR 300 MG ORAL CAPSULE by mouth twice a day 2013 CEFDINIR 300 MG ORAL CAPSULE 503333 CEFDINIR Inactive TRIAMCINOLONE ACETONIDE 0.1 % EXTERNAL OINTMENT Apply to affected areas TID for up to 2 weeks TRIAMCINOLONE ACETON ZACH 0.1 % EXTERNAL OINTMENT 2091454 TRIAMCINOLONE ACETONIDE Inactive PREDNISONE 20 MG ORAL TABLET 2 tabs daily for 3 days, 1 tab daily for 3 days, 1/2 tab daily for 2 days PREDNISONE 20 MG ORAL T ABLET 988133 PREDNISONE Inactive BACTRIM DS 800-160 MG ORAL TABLET 1 po BID x 7 days 29/04/10 BACTRIM DS 800-160 MG ORAL TABLET 174610 SULFAMETHOXAZOLE-TRIMETHOP RIM Inactive CIPRO 500 MG ORAL TABLET 1 tablet by mouth twice daily CIPRO 500 MG ORAL TABLET 866871 CIPROFLOXACIN HCL Inactive AZITHROMYCIN 250 MG ORAL TABLET 2 po qd x 1 day, then 1 po q d x 4 days AZITHROMYCIN 250 MG ORAL TABLET 625880 AZITHROMY SPARKLE Inactive FLAGYL 500 MG ORAL TABLET 1 tablet by mouth bid 04/13 FLAGYL 500 MG ORAL TABLET 579924 METRONIDAZOLE Inactive AZITHROMYCIN 250 MG ORAL TABLET 2 po qd x 1 day, then 1 po q d x 4 days AZITHROMYCIN 250 MG ORAL TABLET 936097 AZITHROMY SPARKLE Inactive AMOXICILLIN 500 MG ORAL CAPSULE 2 po BID x 10 days 201 01/15/27 AMOXICILLIN 500 MG ORAL CAPSULE 254559 AMOXICILLIN Inactive Immunizations Vaccine Administration Date Value [...] PANEL - Chemistry cholesterol, serum 192 mg/dL 118-903 0590/02/20 HDL cholesterol, serum 31 mg/dL > OR [...] 11 .0-15.0 platelet count 218 THOUSAND/UL 10*3/mm3 517-440 8022/02/20 mean platelet volume 9.7 fL 7.5-12.5 Encounters Code Encounter Date Provider Facility CPT-59611 Level 3 Est. Patient 11:24:55 LURER Efren almendarez APRN [facility] CPT-94896 Level 3 Est. Patient 13:05:44 CDT Paul Hamlin MD [facility] CPT-35289 Level 3 Est. Patient 11:29:55 CDT Checo Conklin MD [facility] CPT-54711 Level 4 Est. Patient 11:08:12 LURER Checo Conklin MD [facility] CPT-91666 Level 4 Est. Patient 16:06:48 LURER Checo Conklin MD [facility] CPT-53390 Level 3 Est. Patient 09:11:49 CDT Efren Nicolas almendarez [facility] CPT-30797 Level 2 Est. Patient 19:53:27 CDT Tanner hill MD [facility] CPT-71374 Level 3 Est. Patient 09:15:34 CDT Americomarine Nicolas almendarez [facility] CPT-59709 Level 3 Est. Patient 11:28:51 LURER Efren Nicolas almendarez [facility] CPT-29079 Level 4 Est. Patient 13:55:46 LURER Checo Conklin MD [facility] CPT-97137 Level 4 Est. Patient 17:10:53 CDT Checo Conklin MD [facility] CPT-84309 Level 3 Est. Patient 15:56:22 CDT Checo Conklin MD [facility] CPT-80448 Level 3 Est. Patient 15:29:07 CDT Checo Conklin MD [facility] CPT-24265 Level 3 Est. Patient 14:38:41 CDT Checo Conklin MD [facility] CPT-12729 Level 3 Est. Patient 15:22:03 LURER Thomas reynolds DO [facility] CPT-84010 Level 3 Est. Patient 13:34:17 LURER Checo Conklin MD [facility] CPT-67078 Level 3 Est. Patient 12:29:32 CDT Dangelo arroyo MD [facility] CPT-06023 Level 3 Est. Patient 16:53:02 CDT Checo Conklin MD [facility] CPT-14319 Level 3 Est. Patient 16:37:13 CDT Checo Conklin MD [facility] CPT-95614 Level 3 Est. Patient 16:16:59 CDT Paul Hamlin MD [facility] CPT-02609 Level 3 Est. Patient 14:20:13 CDT Dangelo arroyo MD [facility] CPT-83286 Level 4 Est. Patient 11:29:33 CDT Checo Conklin MD [facility] CPT-32031 Level 3 Est. Patient 17:08:31 CDT Checo Conklin MD [facility] CPT-18002 Level 3 Est. Patient 16:50:42 LURER Checo Conklin MD [facility] CPT-31775 Level 4 Est. Patient 09:26:08 LURER Checo Conklin MD [facility] CPT-86969 Level 3 Est. Patient 11:37:10 CDT Checo Conklin MD [facility] CPT-85199 Level 4 Est. Patient 14:07:38 CDT Checo Conklin MD [facility] CPT-41529 Level 3 Est. Patient 09:54:41 CDT Checo Conklin MD [facility] CPT-39966 Level 3 Est. Patient 11:10:54 CDT Paul Hamlin MD [facility] CPT-88929 Level 3 Est. Patient 14:16:56 LURER Checo Conklin MD [facility] CPT-97629 Level 3 Est. Patient 11:04:11 LURER Checo Conklin MD [facility] CPT-78864 Level 3 Est. Patient 17:09:26 CDT Dangelo arroyo MD [facility] CPT-43699 Level 3 Est. Patient 16:54:37 CDT Checo Conklin MD [facility] Procedures Code Procedure Name Date Entry Date Standard Desc ription CPT-46849 Abd compl w upright - XRAY USE ONLY 1 1:36:54 LURER CPT-42285 UA w micro - LAB USE ONLY 17:06:46 CDT 2015 CPT-47878 BHCG Qual - LAB USE ONLY 17:06:46 CDT 05/06 CPT-88637 CMP - LAB USE ONLY 17:06:46 CDT CPT-88236 CBC with Diff - LAB USE ONLY 17:06:45 CDT 2 CPT-06191 Venipuncture Draw Fee 17:06:45 CDT CPT-LR Lesion Removal 19:53:27 CDT CPT-OV Office Visit 11:31:28 CDT CPT-80494 Tubersol 09:39:29 CDT CPT-J2550 Phenergan 25 mg (Promethazine) 13:59:02 LURER CPT-J1885 Toradol 60 mg (Ketorolac) 13:59:02 LURER 2012
--- OUTSIDE RECORDS SUMMARY | 2019-09-29 01:58 | XMS REPORT | Clinical Summary ---
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 Pylori AMOXICILLIN 41567336844 Active Corry Méndez LPN Active PAROXETINE HCL 20 MG ORAL TABLET 1.5 po qd PAR OXETINE HCL 26517439136 Active Checo Conklin MD Active FLUTICASONE PROPIONATE 50 MCG/ACT NASAL SUSPENSION 2 s prays/nostril qd PRN Congestion/Allergies FLUTICASONE PROPIONATE 1033763918 9 No Longer Active Checo Conklin MD Active AMOXICILLIN 500 MG ORAL CAPSULE 2 po BID x 10 days 201 01/15/27 AMOXICILLIN 49586689832 No Longer Active Checo Conklin MD Activ e MIRALAX ORAL POWDER 8.5 to 17g po qd PRN Constipation POLYETHYLENE GLYCOL 3350 53134238502 Active Checo Conklin MD Active CLARITIN 10 MG ORAL TABLET 1 tablet by mouth daily as needed for allergies LORATADINE 21770948966 No Longer Active Checo Ortiz MD Active BACTRIM DS 800-160 MG ORAL TABLET 1 tab by mouth twice daily 201 12/19/26 TRIMETHOPRIM-SULFAMETHOXAZOLE 82841155404 No Longer Active Ragini Carrillo MD Active DIFLUCAN 150 MG ORAL TABLET 1 tablet by mouth qod 2015 FLUCONAZOLE 71138852277 No Longer Active Efren Medel [employer] Act mike AZITHROMYCIN 250 MG ORAL TABLET 2 po qd x 1 day, then 1 po q d x 4 days AZITHROMYCIN 70603953307 No Longer Active 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 DEXMETHYLPHENIDATE HCL 71114489625 Active Checo Conklin MD Active MAGNESIUM CITRATE 1.745 GM/30ML ORAL SOLUTION 150ml po BID P RN Constipation MAGNESIUM CITRATE 96278680797 No Longer Active Checo Conklin MD Active BACTROBAN 2 % EXTERNAL CREAM Apply to affected area BID for up to 10 days MUPIROCIN CALCIUM 92356643188 No Longer Active Checo Conklin MD Active HYDROCODONE-ACETAMINOPHEN 5-325 MG ORAL TABLET 1 tab b y mouth every 6 hours as needed HYDROCODONE-ACETAMINOPHEN 26599532526 No Longer Active Checo Conklin MD Active IBUPROFEN 800 MG ORAL TABLET 1 tab every 8 hours with food 03/20 IBUPROFEN 77364444363 No Longer Active Checo Conklin MD Active DIFLUCAN 150 MG ORAL TABLET 1 tablet by mouth if neede d, hold until symptoms start FLUCONAZOLE 82546391680 No Longer Active Checo Conklin MD Active BACTRIM DS 800-160 MG ORAL TABLET 1 tab by mouth twice daily 201 11/23/03 TRIMETHOPRIM-SULFAMETHOXAZOLE 57883857545 No Longer Active K bernice Méndez LPN Active HYDROCODONE-ACETAMINOPHEN 5-325 MG ORAL TABLET 0.5 to 1 tab by mouth every 6 hours as needed HYDROCODONE-ACETAMINOPHEN 33016603572 No Longer Active Checo Conklin MD Active ONDANSETRON 8 MG ORAL TABLET DISINTEGRATING place one tablet on tongue and allow to dissolve every 6 hours as needed for vomitting ONDANSETRON 85994004790 No Longer Active Checo Conklin MD Activ e COMPRO 25 MG RECTAL SUPPOSITORY insert or apply one garza ppository rectally as directed every 12 hours as needed for nausea PROCHLORPERAZINE 13464071221 No Longer Active Checo Conklin MD A ctive SUMATRIPTAN SUCCINATE 100 MG ORAL TABLET Take one PRN for migran e SUMATRIPTAN SUCCINATE 84461812131 No Longer Active Checo Conklin MD Active TRAVEL SICKNESS 25 MG ORAL TABLET CHEWABLE chew and sw allow one tablet every 6 hours as needed MECLIZINE HCL 27267707131 No Longer A ctive Checo Conklin MD Active BUPROPION HCL ER (SR) 100 MG ORAL TABLET EXTENDED RELE ASE 12 HOUR take one tablet by mouth one time daily for one week then take 1 two times daily BUPROPION HCL 48712274037 No Longer Active Checo gallagher MD Active TERBINAFINE HCL 250 MG ORAL TABLET take one table PO one time da moises TERBINAFINE HCL 57011285381 No Longer Active Checo Conklin MD Active METOCLOPRAMIDE HCL 10 MG ORAL TABLET take one PO tid PRN nausea METOCLOPRAMIDE HCL 37373019850 No Longer Active Checo Conklin MD Active DICLOFENAC SODIUM 75 MG ORAL TABLET DELAYED RELEASE 1 tablet by mouth twice daily PRN Knee pain DICLOFENAC SODIUM 91095509424 No Longer Active Checo Conklin MD Active LAMISIL 250 MG ORAL TABLET 1 po qd TERBINAFI NE HCL 72117704974 No Longer Active Checo Conklin MD Active REGLAN 10 MG ORAL TABLET 1 po TID PRN Nausea 3 METOCLOPRAMIDE HCL 97822982173 No Longer Active Checo Conklin MD Active CELEXA 20 MG ORAL TABLET 1 tablet by mouth daily 09/26 CITALOPRAM HYDROBROMIDE 85212725106 No Longer Active Checo Conklin MD Active AZITHROMYCIN 250 MG ORAL TABLET 2 po qd x 1 day, then 1 po q d x 4 days AZITHROMYCIN 57511753964 No Longer Active Checo Ortiz MD Active HYDROCODONE-ACETAMINOPHEN 5-325 MG ORAL TABLET 1 po q 6hr PRN Pa in HYDROCODONE-ACETAMINOPHEN 81789987354 No Longer Active Lenora Conklin MD Active PHENAZOPYRIDINE HCL 200 MG ORAL TABLET take 1 tab po TID for bladder pain PHENAZOPYRIDINE HCL 00082861623 No Longer Active Joe Conklin MD Active CIPRO 500 MG ORAL TABLET 1 tablet by mouth twice daily CIPROFLOXACIN HCL 94989927677 No Longer Active Dangelo Rangel MD Active HYDROCODONE-ACETAMINOPHEN 5-325 MG ORAL TABLET 1/2 to 1 po q 4 hours prn cough HYDROCODONE-ACETAMINOPHEN 92026452384 No Longer Activ candy Rangel MD Active BACTRIM DS 800-160 MG ORAL TABLET 1 po BID x 7 days 29/04/10 SULFAMETHOXAZOLE-TRIMETHOPRIM 63086324103 No Longer Active Checo Conklin MD Active PREDNISONE 20 MG ORAL TABLET 2 tabs daily for 3 days, 1 tab daily for 3 days, 1/2 tab daily for 2 days PREDNISONE 16034947546 No Longer Active Checo Conklin MD Active TRIAMCINOLONE ACETONIDE 0.1 % EXTERNAL OINTMENT Apply to affected areas TID for up to 2 weeks TRIAMCINOLONE ACETONIDE 74493876340 No Longer Active Checo Conklin MD Active CEFDINIR 300 MG ORAL CAPSULE by mouth twice a day 2013 CEFDINIR 29486262116 No Longer Active Dangelo Rangel MD Acti ve BUPROPION HCL ER (SMOKING DET) 150 MG ORAL TABLET EXTE NDED RELEASE 12 HOUR 1 a day for 1 week then 1 twice a day BUPROPION HCL (SMOKING DETER) 75075225981 No Longer Active Checo Conklin MD Active SIMVASTATIN 20 MG ORAL TABLET 1 po qd SIMVASTAT IN 79790121009 Active Checo Conklin MD Active CHANTIX STARTING MONTH KARTHIK 0.5 MG X 11 & 1 MG X 42 ORA L TABLET 0.5mg daily for 3 days, then 0.5mg BID for 4 days, then 1mg BID VARENICLINE TARTRATE 57380953447 No Longer Active Checo Conklin MD Activ e XANAX 0.5 MG ORAL TABLET 1 po BID PRN anxiety A LPRAZOLAM 12770413944 Active Checo Conklin MD Active CONCERTA 18 MG ORAL TABLET EXTENDED RELEASE 1 po q a.m. METHYLPHENIDATE HCL 11430679528 No Longer Active Checo Conklin MD Active AMBIEN 5 MG ORAL TABLET 1 po qHS PRN Insomnia Z OLPIDEM TARTRATE 43049485481 Active Checo Conklin MD Active TRAZODONE HCL 100 MG ORAL TABLET 0.5 to 1 po qHS PRN Insomnia 20 30/07/08 TRAZODONE HCL 66190666200 No Longer Active Checo Conklin MD Active FIORICET 325-50-40 MG TAB 1 tablet by mouth four times daily as needed [id number] 91501478344 No Longer Active Checo Conklin MD Active PHENERGAN CREAM* 25mg applied to wrist q6hr PRN Nausea PHENERGAN CREAM* No Longer Active Checo Conklin MD A ctive FLONASE 50 MCG/ACT NASAL SUSPENSION 1 spray each nostril am and hs FLUTICASONE PROPIONATE 15252424518 No Longer Active Checo Conklin MD Active ANTIPYRINE-BENZOCAINE 5.4-1.4 % OTIC SOLUTION 1-2 drops in affec yohannes ear BENZOCAINE-ANTIPYRINE 86802641932 No Longer Active Checo Conklin MD Active CEFDINIR 300 MG ORAL CAPSULE 1 po bid CEFDINIR 87818656419 No Longer Active Checo Conklin MD Active PREDNISONE 20 MG ORAL TABLET 2 tabs daily for 3 days, 1 tab daily for 3 days, 1/2 tab daily for 2 days PREDNISONE 72329106742 No Longer Active Checo Conklin MD Active AZITHROMYCIN 250 MG ORAL TABLET 2 po qd x 1 day, then 1 po q d x 4 days AZITHROMYCIN 96796899922 No Longer Active Checo Ortiz MD Active PREDNISONE 20 MG ORAL TABLET 2 tabs daily for 3 days, 1 tab daily for 3 days, 1/2 tab daily for 2 days PREDNISONE 21612527652 No Longer Active Checo Conklin MD Active ZITHROMAX Z-KARTHIK 250 MG ORAL TABLET 2 today, then 1 daily for 4 d ays AZITHROMYCIN 03134995505 No Longer Active Paul Hamlin MD Active FOCALIN XR 10 MG ORAL CAPSULE EXTENDED RELEASE 24 HOUR 1 po q a. m. DEXMETHYLPHENIDATE HCL 39322496872 No Longer Active Paul Hamlin MD Active PERCOCET 10-325 MG ORAL TABLET 1 tablet every 6 hours as needed for pain OXYCODONE-ACETAMINOPHEN 99145920371 No Longer Active Paul Hamlin MD Active LORTAB 5-500 MG ORAL TABLET 1/2 to 1 tablet by mouth e very 4 hours as needed for pain HYDROCODONE-ACETAMINOPHEN 25997710068 No Longer Active Checo Conklin MD Active FOCALIN XR 15 MG ORAL CAPSULE EXTENDED RELEASE 24 HOUR 1 po q a. m. DEXMETHYLPHENIDATE HCL 87127811206 No Longer Active Checo Conklin MD Active ZOFRAN ODT 4 MG ORAL TABLET DISINTEGRATING 1 po q6hr PRN Nausea ONDANSETRON 70393231999 No Longer Active Checo Conklin MD Active PERCOCET 5-325 MG ORAL TABLET 1 tablet by mouth every 6 hour s as needed OXYCODONE-ACETAMINOPHEN 84600299308 No Longer Active Checo Conklin MD Active PYRIDIUM 200 MG ORAL TABLET take 1 tab po TID prn urinary pain. PHENAZOPYRIDINE HCL 23840611902 No Longer Active Checo Joshua Active FLUCONAZOLE 150 MG ORAL TABLET take 1 tab po qday once FLUCONAZOLE 03925341651 No Longer Active Dangelo Rangel MD Acti ve CIPRO 500 MG ORAL TABLET 1 tablet by mouth twice daily CIPROFLOXACIN HCL 14218333163 No Longer Active Dangelo Rangel MD Active PYRIDIUM 200 MG ORAL TABLET take 1 tab po TID prn urinary pain. PYRIDIUM 200 MG ORAL TABLET 9935924 PHENAZOPYRIDINE HCL Inactive PERCOCET 5-325 MG ORAL TABLET 1 tablet by mouth every 6 hour s as needed PERCOCET 5-325 MG ORAL TABLET 7052685 OXYCODONE-ACETAMINOPHEN Inactive ZOFRAN ODT 4 MG ORAL TABLET DISINTEGRATING 1 po q6hr PRN Nausea ZOFRAN ODT 4 MG ORAL TABLET DISINTEGRATING 988714 ONDAN SETRON Inactive FOCALIN XR 15 MG ORAL CAPSULE EXTENDED RELEASE 24 HOUR 1 po q a. m. FOCALIN XR 15 MG ORAL CAPSULE EXTENDED RELEASE 24 HOUR DEXMETHYLPHENIDATE HCL Inactive LORTAB 5-500 MG ORAL TABLET 1/2 to 1 tablet by mouth e very 4 hours as needed for pain LORTAB 5-500 MG ORAL TABLET 801119 HYDROCODONE-ACETAMINOPHEN Inactive PERCOCET 10-325 MG ORAL TABLET 1 tablet every 6 hours as needed for pain PERCOCET 10-325 MG ORAL TABLET 3557018 OXYCODONE-ACETAMI NOPHEN Inactive FOCALIN XR 10 MG ORAL CAPSULE EXTENDED RELEASE 24 HOUR 1 po q a. m. FOCALIN XR 10 MG ORAL CAPSULE EXTENDED RELEASE 24 HOUR DEXMETHYLPHENIDATE HCL Inactive CEFDINIR 300 MG ORAL CAPSULE 1 po bid CEFDINI R 300 MG ORAL CAPSULE 930910 CEFDINIR Inactive ANTIPYRINE-BENZOCAINE 5.4-1.4 % OTIC SOLUTION 1-2 drops in affec yohannes ear ANTIPYRINE-BENZOCAINE 5.4-1.4 % OTIC SOLUTION 157404 BENZOCAINE-ANTIPYRINE Inactive FLONASE 50 MCG/ACT NASAL SUSPENSION 1 spray each nostril am and hs FLONASE 50 MCG/ACT NASAL SUSPENSION 7863449 FLUTICASONE PROPIONATE I nactive PHENERGAN CREAM* 25mg applied to wrist q6hr PRN Nausea PHENERGAN CREAM* Inactive FIORICET 325-50-40 MG TAB 1 tablet by mouth four times daily as needed FIORICET 325-50-40 MG TAB ACETAMINOPHEN-C AFF-BUTALBITAL Inactive TRAZODONE HCL 100 MG ORAL TABLET 0.5 to 1 po qHS PRN Insomnia 20 30/07/08 TRAZODONE HCL 100 MG ORAL TABLET 626716 TRAZODONE HCL Inactive CONCERTA 18 MG ORAL [...] cough HYDROCODONE-ACETAMINOPHEN 5-325 MG ORAL TABLET 8 58953 HYDROCODONE-ACETAMINOPHEN Inactive PHENAZOPYRIDINE HCL 200 MG ORAL TABLET take 1 tab po TID for bladder pain PHENAZOPYRIDINE HCL 200 MG ORAL TABLET 8094782 PHENAZOPYRIDINE HCL Inactive HYDROCODONE-ACETAMINOPHEN 5-325 MG ORAL TABLET 1 po q 6hr PRN Pa in HYDROCODONE-ACETAMINOPHEN 5-325 MG ORAL TABLET 438278 HYDROCODONE-ACETAMINOPHEN Inactive CELEXA 20 MG ORAL TABLET 1 tablet by mouth daily 09/26 CELEXA 20 MG ORAL TABLET 618172 CITALOPRAM HYDROBROMIDE Inactive REGLAN 10 MG ORAL TABLET 1 po TID PRN Nausea 3 REGLAN 10 MG ORAL TABLET 796715 METOCLOPRAMIDE HCL Inactive LAMISIL 250 MG ORAL TABLET 1 po qd L AMISIL 250 MG ORAL TABLET 773656 TERBINAFINE HCL Inactive DICLOFENAC SODIUM 75 MG ORAL TABLET DELAYED RELEASE 1 tablet by mouth twice daily PRN Knee pain DICLOFENAC SODIUM 75 MG ORAL TABLET DELAYED RELEASE 662918 DICLOFENAC SODIUM Inactive METOCLOPRAMIDE HCL 10 MG ORAL TABLET take one PO tid PRN nausea METOCLOPRAMIDE HCL 10 MG ORAL TABLET 099285 METOCLOPRAM ZACH HCL Inactive TERBINAFINE HCL 250 MG ORAL TABLET take one table PO one time da moises TERBINAFINE HCL 250 MG ORAL TABLET 168616 TERBINAFINE H CL Inactive BUPROPION HCL ER [...] SICKNESS 25 M G ORAL TABLET CHEWABLE 840022 MECLIZINE HCL Inactive SUMATRIPTAN SUCCINATE 100 MG ORAL TABLET Take one PRN for migran e SUMATRIPTAN SUCCINATE 100 MG ORAL TABLET 803501 SUMATRIPTAN SUCCINATE Inactive COMPRO 25 MG RECTAL SUPPOSITORY insert or apply one garza ppository rectally as directed every 12 hours as needed for nausea COMPRO 25 MG RECTAL SUPPOSITORY 220980 PROCHLORPERAZINE Inactive ONDANSETRON 8 MG ORAL TABLET DISINTEGRATING place one tablet on tongue and allow to dissolve every 6 hours as needed for vomitting ONDANSETRON 8 MG ORAL TABLET DISINTEGRATING 607256 ONDANSETRON Inactive HYDROCODONE-ACETAMINOPHEN 5-325 MG ORAL TABLET 0.5 to 1 tab by mouth every 6 hours as needed HYDROCODONE-ACETAMIN OPHEN 5-325 MG ORAL TABLET 878772 HYDROCODONE-ACETAMINOPHEN Inactive BACTRIM DS 800-160 MG ORAL TABLET 1 tab by mouth twice daily 201 11/23/03 BACTRIM DS 800-160 MG ORAL TABLET 895979 TRIMETHOPRIM-SULFAMETHOXAZOLE Inactive DIFLUCAN 150 MG ORAL TABLET 1 tablet by mouth if neede d, hold until symptoms start DIFLUCAN 150 MG ORAL TABLET 156472 FLUCONAZ OLE Inactive IBUPROFEN 800 MG ORAL TABLET 1 tab every 8 hours with food 03/20 IBUPROFEN 800 MG ORAL TABLET 929357 IBUPROFEN [place] ctive HYDROCODONE-ACETAMINOPHEN 5-325 MG ORAL TABLET 1 tab b y mouth every 6 hours as needed HYDROCODONE-ACETAMINOPHEN 5-325 MG ORAL TABLET 808165 HYDROCODONE-ACETAMINOPHEN Inactive BACTROBAN 2 % EXTERNAL CREAM Apply to affected area BID for up to 10 days BACTROBAN 2 % EXTERNAL CREAM 976885 MUPIROCIN CA LCIUM Inactive MAGNESIUM CITRATE 1.745 GM/30ML ORAL SOLUTION 150ml po BID P RN Constipation MAGNESIUM CITRATE 1.745 GM/30ML ORAL SOLUTION 10 02909 MAGNESIUM CITRATE Inactive DIFLUCAN 150 MG ORAL TABLET 1 tablet by mouth qod 2015 DIFLUCAN 150 MG ORAL TABLET 710582 FLUCONAZOLE Inactive BACTRIM DS 800-160 MG ORAL TABLET 1 tab by mouth twice daily 201 12/19/26 BACTRIM DS 800-160 MG ORAL TABLET 190276 TRIMETHOPRIM-SULFAMETHOXAZOLE Inactive CLARITIN 10 MG ORAL TABLET 1 tablet by mouth daily as needed for allergies CLARITIN 10 MG ORAL TABLET 604069 LORATADINE I nactive FLUTICASONE PROPIONATE 50 MCG/ACT NASAL SUSPENSION 2 s prays/nostril qd PRN Congestion/Allergies FLUTICASONE PROPION ATE 50 MCG/ACT NASAL SUSPENSION 6948718 FLUTICASONE PROPIONATE Inactive CIPRO 500 MG ORAL TABLET 1 tablet by mouth twice daily CIPRO 500 MG ORAL TABLET 650610 CIPROFLOXACIN HCL Inactive FLUCONAZOLE 150 MG ORAL TABLET take 1 tab po qday once FLUCONAZOLE 150 MG ORAL TABLET 470355 FLUCONAZOLE Inactive ZITHROMAX Z-KARTHIK 250 MG ORAL TABLET 2 today, then 1 daily for 4 d ays ZITHROMAX Z-KARTHIK 250 MG ORAL TABLET 001324 AZITHROMYCIN Inactive PREDNISONE 20 MG ORAL TABLET 2 tabs daily for 3 days, 1 tab daily for 3 days, 1/2 tab daily for 2 days PREDNISONE 20 MG ORAL T ABLET 357234 PREDNISONE Inactive AZITHROMYCIN 250 MG ORAL TABLET 2 po qd x 1 day, then 1 po q d x 4 days AZITHROMYCIN 250 MG ORAL TABLET 630491 AZITHROMY SPARKLE Inactive PREDNISONE 20 MG ORAL TABLET 2 tabs daily for 3 days, 1 tab daily for 3 days, 1/2 tab daily for 2 days PREDNISONE 20 MG ORAL TABLET 938064 PREDNISONE Inactive CEFDINIR 300 MG ORAL CAPSULE by mouth twice a day 2013 CEFDINIR 300 MG ORAL CAPSULE 624555 CEFDINIR Inactive TRIAMCINOLONE ACETONIDE 0.1 % EXTERNAL OINTMENT Apply to affected areas TID for up to 2 weeks TRIAMCINOLONE ACETON ZACH 0.1 % EXTERNAL OINTMENT 1794483 TRIAMCINOLONE ACETONIDE Inactive PREDNISONE 20 MG ORAL TABLET 2 tabs daily for 3 days, 1 tab daily for 3 days, 1/2 tab daily for 2 days PREDNISONE 20 MG ORAL T ABLET 418700 PREDNISONE Inactive BACTRIM DS 800-160 MG ORAL TABLET 1 po BID x 7 days 29/04/10 BACTRIM DS 800-160 MG ORAL TABLET 174845 SULFAMETHOXAZOLE-TRIMETHOP RIM Inactive CIPRO 500 MG ORAL TABLET 1 tablet by mouth twice daily CIPRO 500 MG ORAL TABLET 354757 CIPROFLOXACIN HCL Inactive AZITHROMYCIN 250 MG ORAL TABLET 2 po qd x 1 day, then 1 po q d x 4 days AZITHROMYCIN 250 MG ORAL TABLET 532331 AZITHROMY SPARKLE Inactive FLAGYL 500 MG ORAL TABLET 1 tablet by mouth bid 04/13 FLAGYL 500 MG ORAL TABLET 652704 METRONIDAZOLE Inactive AZITHROMYCIN 250 MG ORAL TABLET 2 po qd x 1 day, then 1 po q d x 4 days AZITHROMYCIN 250 MG ORAL TABLET 186057 AZITHROMY SPARKLE Inactive AMOXICILLIN 500 MG ORAL CAPSULE 2 po BID x 10 days 201 01/15/27 AMOXICILLIN 500 MG ORAL CAPSULE 537503 AMOXICILLIN Inactive Immunizations Vaccine Administration Date Value [...] PANEL - Chemistry cholesterol, serum 192 mg/dL 057-584 5522/02/20 HDL cholesterol, serum 31 mg/dL > OR [...] 11 .0-15.0 platelet count 218 THOUSAND/UL 10*3/mm3 643-282 5768/02/20 mean platelet volume 9.7 fL 7.5-12.5 mean corpuscular volume, RBC 96.5 fL 80.0-10 0.0 hematocrit, blood 42.2 % 35.0-45.0 hemoglobin, blood 13.7 g/dL 11.7-15.5 erythrocyte (RBC) count 4.37 MILLION/UL 10*6/mm3 3.80-5. 10 leukocyte count, blood 8.7 THOUSAND/UL 10*3/mm3 3.8-10.8 Lab Report: Comp. Metabolic Panel, Eryth rocyte Sed Rate, UADIP W/MICRO, ... - Chemistry sodium, serum 139 mmol/L [phone]/11/28 carbon dioxide, venous blood 26.0 mmol/L 21.0-32 [...] 5.0-8.5 Encounters Code Encounter Date Provider Facility CPT-26535 Level 3 Est. 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 Patient 13:05:44 CDT Paul Hamlin MD [facility] CPT-02561 Level 3 Est. Patient 11:29:55 CDT Checo Conklin MD [facility] CPT-56911 Level 4 Est. 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 Patient 16:06:48 AMMUNITION STOREKEEPER Checo Conklin MD [facility] CPT-30072 Level 3 Est. Patient 09:11:49 CDT Efren almendarez [facility] CPT-64508 Level 2 Est. Patient 19:53:27 CDT Tanner hill MD [facility] CPT-51721 Level 3 Est. Patient 09:15:34 CDT Efren almendarez [facility] CPT-83549 Level 3 Est. Patient 11:28:51 AMM[employer]ITION STOREKEEPER Efren almendarez [facility] CPT-13788 Level 4 Est. Patient 13:55:46 AMMUNITION STOREKEEPER Checo Conklin MD [facility] CPT-44871 Level 4 Est. Patient 17:10:53 CDT Checo Conklin MD [facility] CPT-28302 Level 3 Est. Patient 15:56:22 CDT Checo Conklin MD [facility] CPT-43437 Level 3 Est. Patient 15:29:07 CDT Cehco Conklin MD [facility] CPT-75494 Level 3 Est. Patient 14:38:41 CDT Checo Conklin MD [facility] CPT-89627 Level 3 Est. Patient 15:22:03 [employer]ITION STOREKEEPER Thomas reynolds DO [facility] CPT-15938 Level 3 Est. Patient 13:34:17 AMMUNITION STOREKEEPER Checo Conklin MD [facility] CPT-20595 Level 3 Est. Patient 12:29:32 CDT Dangelo arroyo MD [facility] CPT-92060 Level 3 Est. Patient 16:53:02 CDT Checo Conklin MD [facility] CPT-84076 Level 3 Est. Patient 16:37:13 CDT Checo Conklin MD [facility] CPT-36510 Level 3 Est. Patient 16:16:59 CDT Paul Hamlin MD [facility] CPT-19809 Level 3 Est. Patient 14:20:13 CDT Dangelo arroyo MD [facility]-81445 Level 4 Est. Patient 11:29:33 CDT Checo Conklin MD [facility] CPT-83592 Level 3 Est. Patient 17:08:31 CDT Checo Conklin MD [facility] CPT-80696 Level 3 Est. Patient 16:50:42 AMMUNITION STOREKEEPER Checo Conklin MD [facility] CPT-62669 Level 4 Est. Patient 09:26:08 AMMUNITION STOREKEEPER Checo Conklin MD [facility] CPT-17075 Level 3 Est. Patient 11:37:10 CDT Checo Conklin MD [facility] CPT-84364 Level 4 Est. Patient 14:07:38 CDT Checo Conklin MD [facility] CPT-81041 Level 3 Est. Patient 09:54:41 CDT Checo Conklin MD [facility] CPT-40909 Level 3 Est. Patient 11:10:54 CDT Paul Hamlin MD [facility]-15007 Level 3 Est. Patient 14:16:56 AMMUNITION STOREKEEPER Checo Conklin MD [facility]-37638 Level 3 Est. Patient 11:04:11 AMMUNITION STOREKEEPER Checo Conklin MD [facility] CPT-85885 Level 3 Est. Patient 17:09:26 CDT Dangelo arroyo MD [facility] CPT-36483 Level 3 Est. Patient 16:54:37 CDT Checo Conklin MD [facility] Procedures Code Procedure Name Date Entry Date Standard Desc ription CPT-62777 Abd compl w upright - XRAY USE ONLY 1 1:36:54 [employer]ITION STOREKEEPER CPT-56346 UA w micro - LAB USE ONLY 17:06:46 CDT 2015 CPT-41846 BHCG Qual - LAB USE ONLY 17:06:46 CDT 05/06 CPT-44571 CMP - LAB USE ONLY 17:06:46 CDT CPT-24603 CBC with Diff - LAB USE ONLY 17:06:45 CDT 2 CPT-77397 Venipuncture Draw Fee 17:06:45 CDT CPT-LR Lesion Removal 19:53:27 CDT CPT-OV Office Visit 11:31:28 CDT CPT-79670 Tubersol 09:39:29 CDT CPT-J2550 Phenergan 25 mg (Promethazine) 13:59:02 [employer]ITION STOREKEEPER CPT-J1885 Toradol 60 mg (Ketorolac) 13:59:02 AMMUNITION STOREKEEPER 2012
--- OUTSIDE RECORDS SUMMARY | 2019-09-29 01:58 | XMS REPORT | Clinical Summary ---
[...] MD Concussion, unspecified UTI 599.0 Resolved Checo oCnklin MD Urinary tract infection, site not specified [...] hours as needed for p ain IBUPROFEN [id number] Active Dangelo Rangel MD Acti ve PAROXETINE HCL 40 MG ORAL TABLET 1 po qd PAR OXETINE HCL 13136956866 Active Checo Conklin MD Active MIRALAX ORAL POWDER 8.5 to 17g po qd PRN Constipation POLYETHYLENE GLYCOL 3350 [id number] No Longer Active Checo Conklin MD Active PROTONIX 40 MG ORAL TABLET DELAYED RELEASE 1 pill by [facility] daily, for acid reflux PANTOPRAZOLE SODIUM 02810838710 No Longer Activ e Corry Méndez LPN Active FLAGYL 500 MG ORAL TABLET 1 tablet by mouth bid 08/29 METRONIDAZOLE 61980574329 No Longer Active Corry Méndez LPN Active CLARITHROMYCIN 500 MG ORAL TABLET 1 tab po BID x 14 days CLARITHROMYCIN 51100169958 No Longer Active Corry Méndez LPN Active AMOXICILLIN 500 MG ORAL CAPSULE 2 po BID x 14 days for H. Pylori AMOXICILLIN 07944844002 No Longer Active Corry Méndez LPN Active FLUTICASONE PROPIONATE 50 MCG/ACT NASAL SUSPENSION 2 s prays/nostril qd PRN Congestion/Allergies FLUTICASONE PROPIONATE 3274230107 9 No Longer Active Checo Conklin MD Active AMOXICILLIN 500 MG ORAL CAPSULE 2 po BID x 10 days 201 01/15/27 AMOXICILLIN 20627206828 No Longer Active Checo Conklin MD Activ e CLARITIN 10 MG ORAL TABLET 1 tablet by mouth daily as needed for allergies LORATADINE 66074980548 No Longer Active Checo Ortiz MD Active BACTRIM DS 800-160 MG ORAL TABLET 1 tab by mouth twice daily 201 12/19/26 TRIMETHOPRIM-SULFAMETHOXAZOLE 36471566425 No Longer Active Ragini Carrillo MD Active DIFLUCAN 150 MG ORAL TABLET 1 tablet by mouth qod 2015 FLUCONAZOLE 60398783076 No Longer Active Efren Medel [employer] Act mike AZITHROMYCIN 250 MG ORAL TABLET 2 po qd x 1 day, then 1 po q d x 4 days AZITHROMYCIN 05134899438 No Longer Active Efren flores APRN Active FLAGYL 500 MG ORAL TABLET 1 tablet by mouth bid 04/13 METRONIDAZOLE 17881314051 No Longer Active Checo Conklin MD Acti ve FOCALIN XR 10 MG ORAL CAPSULE EXTENDED RELEASE 24 HOUR 1 po q a.m. DEXMETHYLPHENIDATE HCL 43291393574 Active Checo Conklin MD Active MAGNESIUM CITRATE 1.745 GM/30ML ORAL SOLUTION 150ml po BID P RN Constipation MAGNESIUM CITRATE 00976356856 No Longer Active Checo Conklin MD Active BACTROBAN 2 % EXTERNAL CREAM Apply to affected area BID for up to 10 days MUPIROCIN CALCIUM 67155797473 No Longer Active Checo Conklin MD Active HYDROCODONE-ACETAMINOPHEN 5-325 MG ORAL TABLET 1 tab b y mouth every 6 hours as needed HYDROCODONE-ACETAMINOPHEN 54024830422 No Longer Active Checo Conklin MD Active IBUPROFEN 800 MG ORAL TABLET 1 tab every 8 hours with food 03/20 IBUPROFEN 82855455394 No Longer Active Checo Conklin MD Active DIFLUCAN 150 MG ORAL TABLET 1 tablet by mouth if neede d, hold until symptoms start FLUCONAZOLE 69482968910 No Longer Active Checo Conklin MD Active BACTRIM DS 800-160 MG ORAL TABLET 1 tab by mouth twice daily 201 11/23/03 TRIMETHOPRIM-SULFAMETHOXAZOLE 62668153583 No Longer Active K bernice Méndez LPN Active HYDROCODONE-ACETAMINOPHEN 5-325 MG ORAL TABLET 0.5 to 1 tab by mouth every 6 hours as needed HYDROCODONE-ACETAMINOPHEN 12708681556 No Longer Active Checo Conklin MD Active ONDANSETRON 8 MG ORAL TABLET DISINTEGRATING place one tablet on tongue and allow to dissolve every 6 hours as needed for vomitting ONDANSETRON 87399787126 No Longer Active Checo Conklin MD Activ e COMPRO 25 MG RECTAL SUPPOSITORY insert or apply one agrza ppository rectally as directed every 12 hours as needed for nausea PROCHLORPERAZINE 86087248443 No Longer Active Checo Conklin MD A ctive SUMATRIPTAN SUCCINATE 100 MG ORAL TABLET Take one PRN for migran e SUMATRIPTAN SUCCINATE 14890833319 No Longer Active Checo Conklin MD Active TRAVEL SICKNESS 25 MG ORAL TABLET CHEWABLE chew and sw allow one tablet every 6 hours as needed MECLIZINE HCL 37917774394 No Longer A ctive Checo Conklin MD Active BUPROPION HCL ER (SR) 100 MG ORAL TABLET EXTENDED RELE ASE 12 HOUR take one tablet by mouth one time daily for one week then take 1 two times daily BUPROPION HCL 04848035970 No Longer Active Checo gallagher MD Active TERBINAFINE HCL 250 MG ORAL TABLET take one table PO one time da moises TERBINAFINE HCL 51385669751 No Longer Active Checo Conklin MD Active METOCLOPRAMIDE HCL 10 MG ORAL TABLET take one PO tid PRN nausea METOCLOPRAMIDE HCL 10875792466 No Longer Active Checo Conklin MD Active DICLOFENAC SODIUM 75 MG ORAL TABLET DELAYED RELEASE 1 tablet by mouth twice daily PRN Knee pain DICLOFENAC SODIUM 43993013814 No Longer Active Checo Conklin MD Active LAMISIL 250 MG ORAL TABLET 1 po qd TERBINAFI NE HCL 55850775199 No Longer Active Checo Conklin MD Active REGLAN 10 MG ORAL TABLET 1 po TID PRN Nausea 3 METOCLOPRAMIDE HCL 17901720986 No Longer Active Checo Conklin MD Active CELEXA 20 MG ORAL TABLET 1 tablet by mouth daily 09/26 CITALOPRAM HYDROBROMIDE 68708475119 No Longer Active Checo Conklin MD Active AZITHROMYCIN 250 MG ORAL TABLET 2 po qd x 1 day, then 1 po q d x 4 days AZITHROMYCIN 73298168203 No Longer Active Checo Ortiz MD Active HYDROCODONE-ACETAMINOPHEN 5-325 MG ORAL TABLET 1 po q 6hr PRN Pa in HYDROCODONE-ACETAMINOPHEN 22166446293 No Longer Active Lenora Conklin MD Active PHENAZOPYRIDINE HCL 200 MG ORAL TABLET take 1 tab po TID for bladder pain PHENAZOPYRIDINE HCL 72153731781 No Longer Active Joe Conklin MD Active CIPRO 500 MG ORAL TABLET 1 tablet by mouth twice daily CIPROFLOXACIN HCL 98247489227 No Longer Active Dangelo Rangel MD Active HYDROCODONE-ACETAMINOPHEN 5-325 MG ORAL TABLET 1/2 to 1 po q 4 hours prn cough HYDROCODONE-ACETAMINOPHEN 69578869648 No Longer Activ e Dangelo Rangel MD Active BACTRIM DS 800-160 MG ORAL TABLET 1 po BID x 7 days 29/04/10 SULFAMETHOXAZOLE-TRIMETHOPRIM 19530426594 No Longer Active Checo Conklin MD Active PREDNISONE 20 MG ORAL TABLET 2 tabs daily for 3 days, 1 tab daily for 3 days, 1/2 tab daily for 2 days PREDNISONE 46827361020 No Longer Active Checo Conklin MD Active TRIAMCINOLONE ACETONIDE 0.1 % EXTERNAL OINTMENT Apply to affected areas TID for up to 2 weeks TRIAMCINOLONE ACETONIDE 58262930931 No Longer Active Checo Conklin MD Active CEFDINIR 300 MG ORAL CAPSULE by mouth twice a day 2013 CEFDINIR 58643856198 No Longer Active Dangelo Rangel MD Acti ve BUPROPION HCL ER (SMOKING DET) 150 MG ORAL TABLET EXTE NDED RELEASE 12 HOUR 1 a day for 1 week then 1 twice a day BUPROPION HCL (SMOKING DETER) 67248511397 No Longer Active Checo Conklin MD Active SIMVASTATIN 20 MG ORAL TABLET 1 po qd SIMVASTAT IN 17969065868 Active Checo Conklin MD Active CHANTIX STARTING MONTH KARTHIK 0.5 MG X 11 & 1 MG X 42 ORA L TABLET 0.5mg daily for 3 days, then 0.5mg BID for 4 days, then 1mg BID VARENICLINE TARTRATE 42240148158 No Longer Active Checo Conklin MD Activ e XANAX 0.5 MG ORAL TABLET 1 po BID PRN anxiety A LPRAZOLAM 13438126913 Active Checo Conklin MD Active CONCERTA 18 MG ORAL TABLET EXTENDED RELEASE 1 po q a.m. METHYLPHENIDATE HCL 33909699371 No Longer Active Checo Conklin MD Active AMBIEN 5 MG ORAL TABLET 1 po qHS PRN Insomnia Z OLPIDEM TARTRATE 59340862669 Active Checo Conklin MD Active TRAZODONE HCL 100 MG ORAL TABLET 0.5 to 1 po qHS PRN Insomnia 20 30/07/08 TRAZODONE HCL 20779362693 No Longer Active Checo Conklin MD Active FIORICET 325-50-40 MG TAB 1 tablet by mouth four times daily as needed [id number] 60897110314 No Longer Active Checo Conklin MD Active PHENERGAN CREAM* 25mg applied to wrist q6hr PRN Nausea PHENERGAN CREAM* No Longer Active Checo Gonzales ctive FLONASE 50 MCG/ACT NASAL SUSPENSION 1 spray each nostril am and hs FLUTICASONE PROPIONATE 42392350694 No Longer Active Checo Conklin MD Active ANTIPYRINE-BENZOCAINE 5.4-1.4 % OTIC SOLUTION 1-2 drops in affec yohannes ear BENZOCAINE-ANTIPYRINE 00164132793 No Longer Active Checo Conklin MD Active CEFDINIR 300 MG ORAL CAPSULE 1 po bid CEFDINIR 92323949341 No Longer Active Checo Conklin MD Active PREDNISONE 20 MG ORAL TABLET 2 tabs daily for 3 days, 1 tab daily for 3 days, 1/2 tab daily for 2 days PREDNISONE 97001401202 No Longer Active Checo Conklin MD Active AZITHROMYCIN 250 MG ORAL TABLET 2 po qd x 1 day, then 1 po q d x 4 days AZITHROMYCIN 61351145029 No Longer Active Checo Ortiz MD Active PREDNISONE 20 MG ORAL TABLET 2 tabs daily for 3 days, 1 tab daily for 3 days, 1/2 tab daily for 2 days PREDNISONE 22453356676 No Longer Active Checo Conklin MD Active ZITHROMAX Z-KARTHIK 250 MG ORAL TABLET 2 today, then 1 daily for 4 d ays AZITHROMYCIN 66695467885 No Longer Active Paul Hamlin MD Active FOCALIN XR 10 MG ORAL CAPSULE EXTENDED RELEASE 24 HOUR 1 po q a. m. DEXMETHYLPHENIDATE HCL 68933199277 No Longer Active Paul Hamlin MD Active PERCOCET 10-325 MG ORAL TABLET 1 tablet every 6 hours as needed for pain OXYCODONE-ACETAMINOPHEN 16522857759 No Longer Active Paul Hamlin MD Active LORTAB 5-500 MG ORAL TABLET 1/2 to 1 tablet by mouth e very 4 hours as needed for pain HYDROCODONE-ACETAMINOPHEN 16573132122 No Longer Active Checo Conklin MD Active FOCALIN XR 15 MG ORAL CAPSULE EXTENDED RELEASE 24 HOUR 1 po q a. m. DEXMETHYLPHENIDATE HCL 56110002931 No Longer Active Checo Conklin MD Active ZOFRAN ODT 4 MG ORAL TABLET DISINTEGRATING 1 po q6hr PRN Nausea ONDANSETRON 43880490692 No Longer Active Checo Conklin MD Active PERCOCET 5-325 MG ORAL TABLET 1 tablet by mouth every 6 hour s as needed OXYCODONE-ACETAMINOPHEN 35293513216 No Longer Active Checo Conklin MD Active PYRIDIUM 200 MG ORAL TABLET take 1 tab po TID prn urinary pain. PHENAZOPYRIDINE HCL 78456923763 No Longer Active Checo Joshua Active FLUCONAZOLE 150 MG ORAL TABLET take 1 tab po qday once FLUCONAZOLE 28412283202 No Longer Active Dangelo Rangel MD Acti ve CIPRO 500 MG ORAL TABLET 1 tablet by mouth twice daily CIPROFLOXACIN HCL 78172685139 No Longer Active Dangelo Rangel MD Active PYRIDIUM 200 MG ORAL TABLET take 1 tab po TID prn urinary pain. PYRIDIUM 200 MG ORAL TABLET 3222510 PHENAZOPYRIDINE HCL Inactive PERCOCET 5-325 MG ORAL TABLET 1 tablet by mouth every 6 hour s as needed PERCOCET 5-325 MG ORAL TABLET 7323027 OXYCODONE-ACETAMINOPHEN Inactive ZOFRAN ODT 4 MG ORAL TABLET DISINTEGRATING 1 po q6hr PRN Nausea ZOFRAN ODT 4 MG ORAL TABLET DISINTEGRATING 326590 ONDAN SETRON Inactive FOCALIN XR 15 MG [...] for pain PERCOCET 10-325 MG ORAL TABLET 6708141 OXYCODONE-ACETAMI NOPHEN Inactive FOCALIN XR 10 MG ORAL CAPSULE EXTENDED RELEASE 24 HOUR 1 po q a. m. FOCALIN XR 10 MG ORAL CAPSULE EXTENDED RELEASE 24 HOUR DEXMETHYLPHENIDATE HCL Inactive CEFDINIR 300 MG ORAL CAPSULE 1 po bid CEFDINI R 300 MG ORAL CAPSULE 760206 CEFDINIR Inactive ANTIPYRINE-BENZOCAINE 5.4-1.4 % OTIC SOLUTION 1-2 drops in affec yohannes ear ANTIPYRINE-BENZOCAINE 5.4-1.4 % OTIC SOLUTION 213115 BENZOCAINE-ANTIPYRINE Inactive FLONASE 50 MCG/ACT NASAL SUSPENSION 1 spray each nostril am and hs FLONASE 50 MCG/ACT NASAL SUSPENSION 4793339 FLUTICASONE PROPIONATE I nactive PHENERGAN CREAM* 25mg applied to wrist q6hr PRN Nausea PHENERGAN CREAM* Inactive FIORICET 325-50-40 MG TAB 1 tablet by mouth four times daily as needed FIORICET 325-50-40 MG TAB ACETAMINOPHEN-C AFF-BUTALBITAL Inactive TRAZODONE HCL 100 MG ORAL TABLET 0.5 to 1 po qHS PRN Insomnia 20 30/07/08 TRAZODONE HCL 100 MG ORAL TABLET 514652 TRAZODONE HCL Inactive CONCERTA 18 MG ORAL [...] cough HYDROCODONE-ACETAMINOPHEN 5-325 MG ORAL TABLET 8 20251 HYDROCODONE-ACETAMINOPHEN Inactive PHENAZOPYRIDINE HCL 200 MG ORAL TABLET take 1 tab po TID for bladder pain PHENAZOPYRIDINE HCL 200 MG ORAL TABLET 4193521 PHENAZOPYRIDINE HCL Inactive HYDROCODONE-ACETAMINOPHEN 5-325 MG ORAL TABLET 1 po q 6hr PRN Pa in HYDROCODONE-ACETAMINOPHEN 5-325 MG ORAL TABLET 319949 HYDROCODONE-ACETAMINOPHEN Inactive CELEXA 20 MG ORAL TABLET 1 tablet by mouth daily 09/26 CELEXA 20 MG ORAL TABLET 011509 CITALOPRAM HYDROBROMIDE Inactive REGLAN 10 MG ORAL TABLET 1 po TID PRN Nausea 3 REGLAN 10 MG ORAL TABLET 162749 METOCLOPRAMIDE HCL Inactive LAMISIL 250 MG ORAL TABLET 1 po qd L AMISIL 250 MG ORAL TABLET 167073 TERBINAFINE HCL Inactive DICLOFENAC SODIUM 75 MG ORAL TABLET DELAYED RELEASE 1 tablet by mouth twice daily PRN Knee pain DICLOFENAC SODIUM 75 MG ORAL TABLET DELAYED RELEASE 715527 DICLOFENAC SODIUM Inactive METOCLOPRAMIDE HCL 10 MG ORAL TABLET take one PO tid PRN nausea METOCLOPRAMIDE HCL 10 MG ORAL TABLET 038603 METOCLOPRAM ZACH HCL Inactive TERBINAFINE HCL 250 MG ORAL TABLET take one table PO one time da moises TERBINAFINE HCL 250 MG ORAL TABLET 315287 TERBINAFINE H CL Inactive BUPROPION HCL ER [...] SICKNESS 25 M G ORAL TABLET CHEWABLE 656732 MECLIZINE HCL Inactive SUMATRIPTAN SUCCINATE 100 MG ORAL TABLET Take one PRN for migran e SUMATRIPTAN SUCCINATE 100 MG ORAL TABLET 939805 SUMATRIPTAN SUCCINATE Inactive COMPRO 25 MG RECTAL SUPPOSITORY insert or apply one garza ppository rectally as directed every 12 hours as needed for nausea COMPRO 25 MG RECTAL SUPPOSITORY 705138 PROCHLORPERAZINE Inactive ONDANSETRON 8 MG ORAL TABLET DISINTEGRATING place one tablet on tongue and allow to dissolve every 6 hours as needed for vomitting ONDANSETRON 8 MG ORAL TABLET DISINTEGRATING 312468 ONDANSETRON Inactive HYDROCODONE-ACETAMINOPHEN 5-325 MG ORAL TABLET 0.5 to 1 tab by mouth every 6 hours as needed HYDROCODONE-ACETAMIN OPHEN 5-325 MG ORAL TABLET 623588 HYDROCODONE-ACETAMINOPHEN Inactive BACTRIM DS 800-160 MG ORAL TABLET 1 tab by mouth twice daily 201 11/23/03 BACTRIM DS 800-160 MG ORAL TABLET 19820918 TRIMETHOPRIM-SULFAMETHOXAZOLE Inactive DIFLUCAN 150 MG ORAL TABLET 1 tablet by mouth if neede d, hold until symptoms start DIFLUCAN 150 MG ORAL TABLET 910956 FLUCONAZ OLE Inactive IBUPROFEN 800 MG ORAL TABLET 1 tab every 8 hours with food 03/20 IBUPROFEN 800 MG ORAL TABLET 950094 IBUPROFEN [place] ctive HYDROCODONE-ACETAMINOPHEN 5-325 MG ORAL TABLET 1 tab b y mouth every 6 hours as needed HYDROCODONE-ACETAMINOPHEN 5-325 MG ORAL TABLET 671203 HYDROCODONE-ACETAMINOPHEN Inactive BACTROBAN 2 % EXTERNAL CREAM Apply to affected area BID for up to 10 days BACTROBAN 2 % EXTERNAL CREAM 806410 MUPIROCIN CA LCIUM Inactive MAGNESIUM CITRATE 1.745 GM/30ML ORAL SOLUTION 150ml po BID P RN Constipation MAGNESIUM CITRATE 1.745 GM/30ML ORAL SOLUTION 10 40226 MAGNESIUM CITRATE Inactive DIFLUCAN 150 MG ORAL TABLET 1 tablet by mouth qod 2015 DIFLUCAN 150 MG ORAL TABLET 669537 FLUCONAZOLE Inactive BACTRIM DS 800-160 MG ORAL TABLET 1 tab by mouth twice daily 201 12/19/26 BACTRIM DS 800-160 MG ORAL TABLET 009140 TRIMETHOPRIM-SULFAMETHOXAZOLE Inactive CLARITIN 10 MG ORAL TABLET 1 tablet by mouth daily as needed for allergies CLARITIN 10 MG ORAL TABLET 380596 LORATADINE I nactive FLUTICASONE PROPIONATE 50 MCG/ACT NASAL SUSPENSION 2 s prays/nostril qd PRN Congestion/Allergies FLUTICASONE PROPION ATE 50 MCG/ACT NASAL SUSPENSION 6711081 FLUTICASONE PROPIONATE Inactive MIRALAX ORAL POWDER 8.5 to 17g po qd PRN Constipation MIRALAX ORAL POWDER 614238 POLYETHYLENE GLYCOL 3350 Inactive CIPRO 500 MG ORAL TABLET 1 tablet by mouth twice daily CIPRO 500 MG ORAL TABLET 911013 CIPROFLOXACIN HCL Inactive FLUCONAZOLE 150 MG ORAL TABLET take 1 tab po qday once FLUCONAZOLE 150 MG ORAL TABLET 926367 FLUCONAZOLE Inactive ZITHROMAX Z-KARTHIK 250 MG ORAL TABLET 2 today, then 1 daily for 4 d ays ZITHROMAX Z-KARTHIK 250 MG ORAL TABLET 240096 AZITHROMYCIN Inactive PREDNISONE 20 MG ORAL TABLET 2 tabs daily for 3 days, 1 tab daily for 3 days, 1/2 tab daily for 2 days PREDNISONE 20 MG ORAL T ABLET 891846 PREDNISONE Inactive AZITHROMYCIN 250 MG ORAL TABLET 2 po qd x 1 day, then 1 po q d x 4 days AZITHROMYCIN 250 MG ORAL TABLET 143891 AZITHROMY SPARKLE Inactive PREDNISONE 20 MG ORAL TABLET 2 tabs daily for 3 days, 1 tab daily for 3 days, 1/2 tab daily for 2 days PREDNISONE 20 MG ORAL TABLET 785769 PREDNISONE Inactive CEFDINIR 300 MG ORAL CAPSULE by mouth twice a day 2013 CEFDINIR 300 MG ORAL CAPSULE 809282 CEFDINIR Inactive TRIAMCINOLONE ACETONIDE 0.1 % EXTERNAL OINTMENT Apply to affected areas TID for up to 2 weeks TRIAMCINOLONE ACETON ZACH 0.1 % EXTERNAL OINTMENT 9720363 TRIAMCINOLONE ACETONIDE Inactive PREDNISONE 20 MG ORAL TABLET 2 tabs daily for 3 days, 1 tab daily for 3 days, 1/2 tab daily for 2 days PREDNISONE 20 MG ORAL T ABLET 088781 PREDNISONE Inactive BACTRIM DS 800-160 MG ORAL TABLET 1 po BID x 7 days 29/04/10 BACTRIM DS 800-160 MG ORAL TABLET 431267 SULFAMETHOXAZOLE-TRIMETHOP RIM Inactive CIPRO 500 MG ORAL TABLET 1 tablet by mouth twice daily CIPRO 500 MG ORAL TABLET 334774 CIPROFLOXACIN HCL Inactive AZITHROMYCIN 250 MG ORAL TABLET 2 po qd x 1 day, then 1 po q d x 4 days AZITHROMYCIN 250 MG ORAL TABLET 863108 AZITHROMY SPARKLE Inactive FLAGYL 500 MG ORAL TABLET 1 tablet by mouth bid 04/13 FLAGYL 500 MG ORAL TABLET 979069 METRONIDAZOLE Inactive AZITHROMYCIN 250 MG ORAL TABLET 2 po qd x 1 day, then 1 po q d x 4 days AZITHROMYCIN 250 MG ORAL TABLET 307242 AZITHROMY SPARKLE Inactive AMOXICILLIN 500 MG ORAL CAPSULE 2 po BID x 10 days 201 01/15/27 AMOXICILLIN 500 MG ORAL CAPSULE 139421 AMOXICILLIN Inactive AMOXICILLIN 500 MG ORAL CAPSULE 2 po BID x 14 days for H. Pylori AMOXICILLIN 500 MG ORAL CAPSULE 957035 AMOXICILLIN Inactive CLARITHROMYCIN 500 MG ORAL TABLET 1 tab po BID x 14 days CLARITHROMYCIN 500 MG ORAL TABLET 463371 CLARITHROMYCIN Inacti ve FLAGYL 500 MG ORAL TABLET 1 tablet by mouth bid 08/29 FLAGYL 500 MG ORAL TABLET 927270 METRONIDAZOLE Inactive PROTONIX 40 MG ORAL TABLET DELAYED RELEASE 1 pill by m outh daily, for acid reflux PROTONIX 40 MG ORAL TABLET DELAYED RELEAS E 832026 PANTOPRAZOLE SODIUM Inactive Immunizations Vaccine Administration Date [...] ... - Chemistry sodium, serum 139 mmol/L 321-620 9994/11/28 carbon dioxide, venous blood 26.0 mmol/L 21.0-32 [...] 5.0-8.5 Encounters Code Encounter Date Provider Facility CPT-43935 [id number] Vst-Est Level III 09:37:41 CDT Dangelo Rangel MD [facility] CPT-35512 Level 4 Est. Patient 08:57:51 NEWS WIRE PHOTO OPERATOR Checo Conklin MD [facility] CPT-81267 Level 3 Est. Patient 11:24:55 NEWS WIRE PHOTO OPERATOR Efren almendarez [facility] CPT-61853 Level 3 Est. Patient 13:05:44 CDT Paul Hamlin MD [facility] CPT-73542 Level 3 Est. Patient 11:29:55 CDT Checo Conklin MD [facility] CPT-34688 Level 4 Est. Patient 11:08:12 NEWS WIRE PHOTO OPERATOR Checo Conklin MD [facility] CPT-67713 Level 4 Est. Patient 16:06:48 NEWS WIRE PHOTO OPERATOR Checo Conklin MD [facility] CPT-23706 Level 3 Est. Patient 09:11:49 CDT Efren almendarez [facility] CPT-25009 Level 2 Est. Patient 19:53:27 CDT Tanner hill MD [facility] CPT-04691 Level 3 Est. Patient 09:15:34 CDT Efren almendarez [facility] CPT-89900 Level 3 Est. Patient 11:28:51 NEWS WIRE PHOTO OPERATOR Efren almendarez [facility] CPT-02777 Level 4 Est. Patient 13:55:46 NEWS WIRE PHOTO OPERATOR Checo Conklin MD [facility] CPT-72767 Level 4 Est. Patient 17:10:53 CDT Checo Conklin MD [facility] CPT-60758 Level 3 Est. Patient 15:56:22 CDT Checo Conklin MD [facility] CPT-88211 Level 3 Est. Patient 15:29:07 CDT Checo Conklin MD [facility] CPT-51467 Level 3 Est. Patient 14:38:41 CDT Checo Conklin MD [facility] CPT-54003 Level 3 Est. Patient 15:22:03 NEWS WIRE PHOTO OPERATOR Thomas reynolds DO [facility] CPT-71235 Level 3 Est. Patient 13:34:17 NEWS WIRE PHOTO OPERATOR Checo Conklin MD [facility] CPT-11521 Level 3 Est. Patient 12:29:32 CDT Dangelo arroyo MD [facility] CPT-80698 Level 3 Est. Patient 16:53:02 CDT Checo Conklin MD [facility] CPT-48875 Level 3 Est. Patient 16:37:13 CDT Checo Conklin MD [facility] CPT-45109 Level 3 Est. Patient 16:16:59 CDT Paul Hamlin MD [facility] CPT-34313 Level 3 Est. Patient 14:20:13 CDT Dangelo arroyo MD [facility] CPT-93597 Level 4 Est. Patient 11:29:33 CDT Checo Conklin MD [facility] CPT-31962 Level 3 Est. Patient 17:08:31 CDT Checo Conklin MD [facility] CPT-09614 Level 3 Est. Patient 16:50:42 NEWS WIRE PHOTO OPERATOR Checo Conklin MD [facility] CPT-26209 Level 4 Est. Patient 09:26:08 NEWS WIRE PHOTO OPERATOR Checo Conklin MD [facility] CPT-73025 Level 3 Est. Patient 11:37:10 CDT Checo Conklin MD [facility] CPT-86674 Level 4 Est. Patient 14:07:38 CDT Checo Conklin MD [facility] CPT-65974 Level 3 Est. Patient 09:54:41 CDT Checo Conklin MD [facility] CPT-79717 Level 3 Est. Patient 11:10:54 CDT Paul Hamlin MD [facility] CPT-25808 Level 3 Est. Patient 14:16:56 NEWS WIRE PHOTO OPERATOR Checo Conklin MD [facility] CPT-69021 Level 3 Est. Patient 11:04:11 NEWS WIRE PHOTO OPERATOR Checo Conklin MD [facility] CPT-91666 Level 3 Est. Patient 17:09:26 CDT Dangelo arroyo MD [facility] CPT-56307 Level 3 Est. Patient 16:54:37 CDT Checo Conklin MD [facility] Procedures Code Procedure Name Date Entry Date Standard Desc ription CPT-25941 Wrist, right, comp 3V - XRAY USE ONLY 09:24:31 CDT CPT-47996 Abd compl w upright - XRAY USE ONLY 1 1:36:54 NEWS WIRE PHOTO OPERATOR CPT-81098 UA w micro - LAB USE ONLY 17:06:46 CDT 2015 CPT-70723 [facility] Qual - LAB USE ONLY 17:06:46 CDT 05/06 CPT-34569 CMP - LAB USE ONLY 17:06:46 CDT CPT-73331 CBC with Diff - LAB USE ONLY 17:06:45 CDT 2 CPT-86773 Venipuncture Draw Fee 17:06:45 CDT CPT-LR Lesion Removal 19:53:27 CDT CPT-OV Office Visit 11:31:28 CDT CPT-23195 Tubersol 09:39:29 CDT CPT-J2550 Phenergan 25 mg (Promethazine) 13:59:02 NEWS WIRE PHOTO OPERATOR CPT-J1885 Toradol 60 mg (Ketorolac) 13:59:02 NEWS WIRE PHOTO OPERATOR 2012
--- OUTSIDE RECORDS SUMMARY | 2019-09-29 01:58 | XMS REPORT | Clinical Summary ---
Author Author Admin, Bethany Gonzales Organization [employer] Address Unknown Phone Unavailable Allergies, Adverse Reactions, [...] of skin Abdominal pain, generalized 789.07 Resolved Cheoc Conklin MD Abdominal pain, generalized Urinary frequency [...] TABS 1.5 po qd PAROX ETINE HCL 16770650280 Active Checo Conklin MD Active FLUTICASONE PROPIONATE 50 MCG/ACT NASAL SUSP 2 sprays/ nostril qd PRN Congestion/Allergies FLUTICASONE PROPIONATE 4618569485 5 No Longer Active Checo Conklin MD Active AMOXICILLIN 500 MG ORAL CAPS 2 po BID x 10 days 09/12 AMOXICILLIN 92673105162 No Longer Active Checo Conklin MD Activ e MIRALAX ORAL POWD 8.5 to 17g po qd PRN Constipation POLYETHYLENE GLYCOL 3350 95213472821 Active Checo Conklin MD Active CLARITIN 10 MG TAB 1 tablet by mouth daily as needed for allergi es LORATADINE 65119463347 No Longer Active Checo Conklin MD Active BACTRIM DS 800-160 MG TAB 1 tab by mouth twice daily 2 TRIMETHOPRIM-SULFAMETHOXAZOLE 54847217903 No Longer Active Tanner Carrillo MD Active DIFLUCAN 150 MG TAB 1 tablet by mouth qod FLUCO NAZOLE 41566469158 No Longer Active Efren Medel APRN Active AZITHROMYCIN 250 MG TABS 2 po qd x 1 day, then 1 po qd x 4 days AZITHROMYCIN 17029362154 No Longer Active Efren Medel APRN Active FLAGYL 500 MG TAB 1 tablet by mouth bid METRONI DAZOLE 84028946379 No Longer Active Checo Conklin MD Active FOCALIN XR 10 MG ORAL [id number] 1 po q a.m. DEX METHYLPHENIDATE HCL 51126287598 Active Checo Conklin MD Active MAGNESIUM CITRATE 1.745 GM/30ML ORAL SOLN 150ml po BID PRN C onstipation MAGNESIUM CITRATE 82191246652 No Longer Active Checo Conklin MD Active BACTROBAN 2 % CREAM Apply to affected area BID for up to 10 days MUPIROCIN CALCIUM 52967625749 No Longer Active Checo Conklin MD Active HYDROCODONE-ACETAMINOPHEN 5-325 MG TABS 1 tab by mouth every 6 hours as needed HYDROCODONE-ACETAMINOPHEN 02958998199 No Longer Activ e Checo Conklin MD Active IBUPROFEN 800 MG TABS 1 tab every 8 hours with food 20 31/03/21 IBUPROFEN 14354029363 No Longer Active Checo Conklin MD Activ e DIFLUCAN 150 MG TAB 1 tablet by mouth if needed, hold until symptoms start FLUCONAZOLE 12065017629 No Longer Active Checo Ortiz MD Active BACTRIM DS 800-160 MG TAB 1 tab by mouth twice daily 2 TRIMETHOPRIM-SULFAMETHOXAZOLE 78618165820 No Longer Active Corry leong LPN Active HYDROCODONE-ACETAMINOPHEN 5-325 MG TABS 0.5 to 1 tab b y mouth every 6 hours as needed HYDROCODONE-ACETAMINOPHEN 93562492995 No Longer Active Checo Conklin MD Active ONDANSETRON [address] one tablet on tongue and allow to dissolve every 6 hours as needed for vomitting ONDANSETRO N 22750255704 No Longer Active Checo Conklin MD Active COMPRO 25 MG RECTAL SUPP insert or apply one supposit ory rectally as directed every 12 hours as needed for nausea PROCHLORPERA ZINE 28913392215 No Longer Active Checo Conklin MD Active SUMATRIPTAN SUCCINATE 100 MG ORAL TABS Take one PRN for migrane SUMATRIPTAN SUCCINATE 21806598724 No Longer Active Checo Conklin MD Active TRAVEL SICKNESS 25 MG ORAL CHEW chew and swallow one t ablet every 6 hours as needed MECLIZINE HCL 35657738524 No Longer Active Joe Conklin MD Active BUPROPION HCL ER (SR) 100 MG ORAL [id number] take one t ablet by mouth one time daily for one week then take 1 two times daily BUPROPION HCL 85122703547 No Longer Active Checo Conklin MD Activ e TERBINAFINE HCL 250 MG ORAL TABS take one table PO one time abran y TERBINAFINE HCL 73662462445 No Longer Active Checo Conklin MD Active METOCLOPRAMIDE HCL 10 MG ORAL TABS take one PO tid PRN nausea 20 29/12/14 METOCLOPRAMIDE HCL 49699088591 No Longer Active Checo Conklin MD Active DICLOFENAC SODIUM 75 MG TBEC 1 tablet by mouth twice daily P RN Knee pain DICLOFENAC SODIUM 54972743785 No Longer Active Checo Conklin MD Active LAMISIL 250 MG TAB 1 po qd TERBINAFINE HCL 548 44565355 No Longer Active Checo Conklin MD Active REGLAN 10 MG TAB 1 po TID PRN Nausea METOCLOPRA MIDE HCL 56830611297 No Longer Active Checo Conklin MD Active CELEXA 20 MG TABS 1 tablet by mouth daily CITALOPRAM HYDROBROMIDE 89582664005 No Longer Active Checo Conklin MD Activ e AZITHROMYCIN 250 MG TABS 2 po qd x 1 day, then 1 po qd x 4 days AZITHROMYCIN 88317218490 No Longer Active Checo Conklin MD Active HYDROCODONE-ACETAMINOPHEN 5-325 MG TABS 1 po q 6hr PRN Pain 2013 HYDROCODONE-ACETAMINOPHEN 17895044625 No Longer Active Lenora Conklin MD Active PHENAZOPYRIDINE HCL 200 MG TABS take 1 tab po TID for bladder pa in PHENAZOPYRIDINE HCL 79960757955 No Longer Active Checo Joshua Active CIPRO 500 MG TAB 1 tablet by mouth twice daily CIPROFLOXACIN HCL 65725872068 No Longer Active Dangelo Rangel MD Active HYDROCODONE-ACETAMINOPHEN 5-325 MG TABS 1/2 to 1 po q 4 hour s prn cough HYDROCODONE-ACETAMINOPHEN 19017832303 No Longer Activ e Dangelo Rangel MD Active BACTRIM DS 800-160 MG TABS 1 po BID x 7 days 0 SULFAMETHOXAZOLE-TRIMETHOPRIM 68381146169 No Longer Active Checo Conklin MD Active PREDNISONE 20 MG TAB 2 tabs daily for 3 days, 1 t ab daily for 3 days, 1/2 tab daily for 2 days PREDNISONE 51630183401 No Longer Active Checo Conklin MD Active TRIAMCINOLONE ACETONIDE 0.1 % OINT Apply to affected a reas TID for up to 2 weeks TRIAMCINOLONE ACETONIDE 43186103767 No Longer A ctive Checo Conklin MD Active CEFDINIR 300 MG CAPS by mouth twice a day CEFDI JAZZY 56902435753 No Longer Active Dangelo Rangel MD Active BUPROPION HCL (SMOKING DETER) 150 MG [id number] 1 a day for 1 week then 1 twice a day BUPROPION HCL (SMOKING DETER) 83262909596 No Lo nger Active Checo Conklin MD Active SIMVASTATIN 20 MG TABS 1 po qd SIMVASTATIN 7703649697 5 Active Checo Conklin MD Active CHANTIX STARTING MONTH KARTHIK 0.5 MG X 11 & 1 MG X 42 TAB S 0.5mg daily for 3 days, then 0.5mg BID for 4 days, then 1mg BID VARENICLINE TARTRATE 12801514045 No Longer Active Checo Conklin MD Activ e XANAX 0.5 MG TABS 1 po BID PRN anxiety ALPRAZOLAM 29878003582 Active Checo Conklin MD Active CONCERTA 18 MG CR-TABS 1 po q a.m. METHYLPHENID ATE HCL 10168948542 No Longer Active Checo Conklin MD Active AMBIEN 5 MG TAB 1 po qHS PRN Insomnia ZOLPIDEM TARTRATE 88771648557 Active Checo Conklin MD Active TRAZODONE HCL 100 MG TAB 0.5 to 1 po qHS PRN Insomnia TRAZODONE HCL 84833569771 No Longer Active Checo Conklin MD Acti ve FIORICET 325-50-40 MG TAB 1 tablet by mouth four times daily as needed [id number] 65018545003 No Longer Active Checo Conklin MD Active PHENERGAN CREAM* 25mg applied to wrist q6hr PRN Nausea PHENERGAN CREAM* No Longer Active Checo Conklin MD A ctive FLONASE 50 MCG/ACT SUSP 1 spray each nostril am and hs FLUTICASONE PROPIONATE 03382938696 No Longer Active Checo Conklin MD Activ e ANTIPYRINE-BENZOCAINE 5.4-1.4 % SOLN 1-2 drops in affected ear BENZOCAINE-ANTIPYRINE 22431794933 No Longer Active Checo Conklin MD Active CEFDINIR 300 MG CAPS 1 po bid CEFDINIR 09502134 120 No Longer Active Checo Conklin MD Active PREDNISONE 20 MG TAB 2 tabs daily for 3 days, 1 t ab daily for 3 days, 1/2 tab daily for 2 days PREDNISONE 81444680086 No Longer Active Aracelis Conklin MD Active AZITHROMYCIN 250 MG TABS 2 po qd x 1 day, then 1 po qd x 4 days AZITHROMYCIN 48601848443 No Longer Active Checo Conklin MD Active PREDNISONE 20 MG TAB 2 tabs daily for 3 days, 1 t ab daily for 3 days, 1/2 tab daily for 2 days PREDNISONE 98915863193 No Longer Active Checo Conklin MD Active ZITHROMAX Z-KARTHIK 250 MG TABS 2 today, then 1 daily for 4 days 201 09/18/28 AZITHROMYCIN 76130439606 No Longer Active Paul Hamlin MD Active FOCALIN XR 10 MG [id number] 1 po q a.m. D EXMETHYLPHENIDATE HCL 92060734903 No Longer Active Paul Hamlin MD Activ e PERCOCET 10-325 MG TABS 1 tablet every 6 hours as needed for pain OXYCODONE-ACETAMINOPHEN 77648464827 No Longer Active Paul Hamlin MD Active LORTAB 5 5-500 MG TABS 1/2 to 1 tablet by mouth flaquito ry 4 hours as needed for pain HYDROCODONE-ACETAMINOPHEN 05231607439 No Longer Active Checo Conklin MD Active FOCALIN XR 15 MG [id number] 1 po q a.m. D EXMETHYLPHENIDATE HCL 24087890403 No Longer Active Checo Conklin MD Activ e ZOFRAN ODT 4 MG TBDP 1 po q6hr PRN Nausea ONDAN SETRON 35352992954 No Longer Active Checo Conklin MD Active PERCOCET 5-325 MG TABS 1 tablet by mouth every 6 hours as needed OXYCODONE-ACETAMINOPHEN 13084798585 No Longer Active Checo Conklin MD Active PYRIDIUM 200 MG TABS take 1 tab po TID prn urinary pain. 0 PHENAZOPYRIDINE HCL 70377349295 No Longer Active Checo Conklin MD Active FLUCONAZOLE 150 MG TABS take 1 tab po qday once 04/06 FLUCONAZOLE 13390330996 No Longer Active Dangelo Rangel MD Acti ve CIPRO 500 MG TAB 1 tablet by mouth twice daily CIPROFLOXACIN HCL 92648730994 No Longer Active Dangelo Rangel MD Active PYRIDIUM 200 MG TABS take 1 tab po TID prn urinary pain. 0 PYRIDIUM 200 MG TABS 8646354 PHENAZOPYRIDINE HCL Inactive PERCOCET 5-325 MG TABS 1 tablet by mouth every 6 hours as needed PERCOCET 5-325 MG TABS 6377910 OXYCODONE-ACETAMINOPHEN I nactive ZOFRAN ODT 4 MG TBDP 1 po q6hr PRN Nausea ZOFRAN ODT 4 MG TBDP 157276 ONDANSETRON Inactive FOCALIN XR 15 MG [id number] 1 po q a.m. F OCALIN XR 15 MG [id number] DEXMETHYLPHENIDATE HCL Inactive LORTAB 5 5-500 MG TABS 1/2 to 1 tablet by mouth flaquito ry 4 hours as needed for pain LORTAB 5 5-500 MG TABS HYDROCODONE-A CETAMINOPHEN Inactive PERCOCET 10-325 MG TABS 1 tablet every 6 hours as needed for pain PERCOCET 10-325 MG TABS 4926055 OXYCODONE-ACETAMINOPHEN Inactive FOCALIN XR 10 MG [id number] 1 po q a.m. F OCALIN XR 10 MG [id number] DEXMETHYLPHENIDATE HCL Inactive CEFDINIR 300 MG CAPS [...] PRN Insomnia TRAZODONE HCL 100 MG TAB 877426 TRAZODONE HCL Inactive CONCERTA 18 MG CR-TABS [...] s prn cough HYDROCODONE-ACETAMINOPHEN 5-325 MG TABS 616965 HYDROCODONE-ACETAMINOPHEN Inactive PHENAZOPYRIDINE HCL 200 MG TABS take 1 tab po TID for bladder pa in PHENAZOPYRIDINE HCL 200 MG TABS 1545945 PHENAZOPYRIDINE HCL Inactive HYDROCODONE-ACETAMINOPHEN 5-325 MG TABS 1 po q 6hr PRN Pain 2013 HYDROCODONE-ACETAMINOPHEN 5-325 MG TABS 217280 HYDROCODONE-ACETAMINOPHEN Inactive CELEXA 20 MG TABS 1 tablet by mouth daily CELEXA 20 MG TABS 550165 CITALOPRAM HYDROBROMIDE Inactive REGLAN 10 MG TAB 1 po TID PRN Nausea REGLAN 10 MG TAB 089697 METOCLOPRAMIDE HCL Inactive LAMISIL 250 MG TAB 1 po qd LAMISIL 250 MG TAB 032448 TERBINAFINE HCL Inactive DICLOFENAC SODIUM 75 MG TBEC 1 tablet by mouth twice daily P RN Knee pain DICLOFENAC SODIUM 75 MG TBEC 360882 DICLOFENAC S ODIUM Inactive METOCLOPRAMIDE HCL 10 MG ORAL TABS take one PO tid PRN nausea 20 29/12/14 METOCLOPRAMIDE HCL 10 MG ORAL TABS 180678 METOCLOPRAMID E HCL Inactive TERBINAFINE HCL 250 MG ORAL TABS take one table PO one time abran y TERBINAFINE HCL 250 MG ORAL TABS 778481 TERBINAFINE HCL Inactive BUPROPION HCL ER (SR) 100 MG ORAL [id number] take one t ablet by mouth one time daily for one week then take 1 two times daily BUPROPION HCL ER (SR) 100 MG ORAL [id number] BUPROPION HCL Inacti ve TRAVEL SICKNESS 25 MG ORAL CHEW chew and swallow one t ablet every 6 hours as needed TRAVEL SICKNESS 25 MG ORAL CHEW 868034 MECLIZINE HCL Inactive SUMATRIPTAN SUCCINATE 100 MG ORAL TABS Take one PRN for migrane SUMATRIPTAN SUCCINATE 100 MG ORAL TABS 276621 SUMATRIPT AN SUCCINATE Inactive COMPRO 25 MG RECTAL SUPP insert or apply one supposit ory rectally as directed every 12 hours as needed for nausea COMP RO 25 MG RECTAL SUPP 778464 PROCHLORPERAZINE Inactive ONDANSETRON [address] one tablet on tongue and allow to dissolve every 6 hours as needed for vomitting ON DANSETRON 8 MG ORAL TBDP 141260 ONDANSETRON Inactive HYDROCODONE-ACETAMINOPHEN 5-325 MG TABS 0.5 to 1 tab b y mouth every 6 hours as needed HYDROCODONE-ACETAMINOPHEN 5-325 MG TABS 8 26088 HYDROCODONE-ACETAMINOPHEN Inactive BACTRIM DS 800-160 MG TAB 1 tab by mouth twice daily 2 BACTRIM DS 800-160 MG TAB 877294 TRIMETHOPRIM-SULFAMETHOXAZOLE Inac tive DIFLUCAN 150 MG TAB 1 tablet by mouth if needed, hold until symptoms start DIFLUCAN 150 MG TAB 19760325 FLUCONAZOLE Inactive IBUPROFEN 800 MG TABS 1 tab every 8 hours with food 31/03/21 IBUPROFEN 800 MG TABS 256400 IBUPROFEN Inactive HYDROCODONE-ACETAMINOPHEN 5-325 MG TABS 1 tab by mouth every 6 hours as needed HYDROCODONE-ACETAMINOPHEN 5-325 MG TABS 033934 HYDROCODONE-ACETAMINOPHEN Inactive BACTROBAN 2 % CREAM Apply to affected area BID for up to 10 days BACTROBAN 2 % CREAM 493614 MUPIROCIN CALCIUM Inactive MAGNESIUM CITRATE 1.745 GM/30ML ORAL SOLN 150ml po BID PRN C onstipation MAGNESIUM CITRATE 1.745 GM/30ML ORAL SOLN 927715 0 MAGNESIUM CITRATE Inactive DIFLUCAN 150 MG TAB 1 tablet by mouth qod DIFLUCAN 150 MG TAB 302780 FLUCONAZOLE Inactive BACTRIM DS 800-160 MG TAB 1 tab by mouth twice daily 2 BACTRIM DS 800-160 MG TAB 571290 TRIMETHOPRIM-SULFAMETHOXAZOLE Inac tive CLARITIN 10 MG TAB 1 tablet by mouth daily as needed for allergi es CLARITIN 10 MG TAB 794086 LORATADINE Inactive FLUTICASONE PROPIONATE 50 MCG/ACT NASAL SUSP 2 sprays/ nostril qd PRN Congestion/Allergies FLUTICASONE PROPION ATE 50 MCG/ACT NASAL SUSP 8217659 FLUTICASONE PROPIONATE Inactive CIPRO 500 MG TAB 1 tablet by mouth twice daily CIPRO 500 MG TAB 365116 CIPROFLOXACIN HCL Inactive FLUCONAZOLE 150 MG TABS take 1 tab po qday once 04/06 FLUCONAZOLE 150 MG TABS 098809 FLUCONAZOLE Inactive ZITHROMAX Z-KARTHIK 250 MG TABS 2 today, then 1 daily for 4 days 201 09/18/28 ZITHROMAX Z-KARTHIK 250 MG TABS 6232860 AZITHROMYCIN Inac tive PREDNISONE 20 MG TAB 2 tabs daily for 3 days, 1 t ab daily for 3 days, 1/2 tab daily for 2 days PREDNISONE 20 MG TAB 016085 PREDNISON E Inactive AZITHROMYCIN 250 MG TABS 2 po qd x 1 day, then 1 po qd x 4 days AZITHROMYCIN 250 MG TABS 7021803 AZITHROMYCIN Inactiv e PREDNISONE 20 MG TAB 2 tabs daily for 3 days, 1 t ab daily for 3 days, 1/2 tab daily for 2 days PREDNISONE 20 MG TAB 544275 PREDNISON E Inactive CEFDINIR 300 MG CAPS by mouth twice a day CEFDINIR 300 MG CAPS 601888 CEFDINIR Inactive TRIAMCINOLONE ACETONIDE 0.1 % OINT Apply to affected a reas TID for up to 2 weeks TRIAMCINOLONE ACETONIDE 0.1 % OINT 993683 6 TRIAMCINOLONE ACETONIDE Inactive PREDNISONE 20 MG TAB 2 tabs daily for 3 days, 1 t ab daily for 3 days, 1/2 tab daily for 2 days PREDNISONE 20 MG TAB 272134 PREDNISON E Inactive BACTRIM DS 800-160 MG TABS 1 po BID x 7 days 0 BACTRIM DS 800-160 MG TABS 418281 SULFAMETHOXAZOLE-TRIMETHOPRIM Inactive CIPRO 500 MG TAB 1 tablet by mouth twice daily CIPRO 500 MG TAB 400548 CIPROFLOXACIN HCL Inactive AZITHROMYCIN 250 MG TABS 2 po qd x 1 day, then 1 po qd x 4 days AZITHROMYCIN 250 MG TABS 2735343 AZITHROMYCIN Inactiv e FLAGYL 500 MG TAB 1 tablet by mouth bid FLAGYL 500 MG TAB 828321 METRONIDAZOLE Inactive AZITHROMYCIN 250 MG TABS 2 po qd x 1 day, then 1 po qd x 4 days AZITHROMYCIN 250 MG TABS 4866069 AZITHROMYCIN Inactiv e AMOXICILLIN 500 MG ORAL CAPS 2 po BID x 10 days 09/12 AMOXICILLIN 500 MG ORAL CAPS 064898 AMOXICILLIN Inactive Immunizations Vaccine Administration Date Value [...] Report: CBC W/DIFF, Comp. Metabolic Panel, Qual [facility] [place] [facility] [place] Chemistry sodium, serum 139 mmol/L 367-345 1559/10/21 carbon dioxide, venous blood 33.5 mmol/L 21.0-32 [...] Report: CBC W/DIFF, Comp. Metabolic Panel, Qual [facility] [place] [facility] [place] - Hematology leukocyte count, [...] PANEL - Chemistry cholesterol, serum 192 mg/dL 776-212 7753/02/20 HDL cholesterol, serum 31 mg/dL > OR [...] 11 .0-15.0 platelet count 218 THOUSAND/UL 10*3/mm3 999-939 7675/02/20 mean platelet volume 9.7 fL 7.5-12.5 Lab Report: Chlamydia/GC APTIMA/[id number] - Lab chlamydia DNA probe NOT DETECTED NOT DETECTED Lab Report: Chlamydia/GC APTIMA/[id number] - Microbiology Neisseria gonorrhoeae DNA probe NOT DETECTED NO T DETECTED Lab Report: Comp. Metabolic Panel, Thyro id Stimulating Hormone (L), Eryt ... - Chemistry sodium, serum 137 mmol/L 606-074 3876/05/27 carbon dioxide, venous blood 29.1 mmol/L 21.0-32 [...] 5.0-8.5 Encounters Code Encounter Date Provider Facility CPT-35251 Level 3 Est. Patient 11:29:55 CDT Checo Conklin MD [facility] CPT-88349 Level 4 Est. Patient 11:08:12 [employer] Checo Conklin MD [facility] CPT-95099 Level 4 Est. Patient 16:06:48 [employer] Checo Conklin MD [facility] CPT-57199 Level 3 Est. Patient 09:11:49 CDT Efren almendarez [facility] CPT-21406 Level 2 Est. Patient 19:53:27 CDT Tanner hill MD [facility] CPT-13581 Level 3 Est. Patient 09:15:34 CDT Efren almendarez [facility] CPT-93601 Level 3 Est. Patient 11:28:51 [employer] Efren almendarez [facility] CPT-42745 Level 4 Est. Patient 13:55:46 [employer] Checo Conklin MD [facility] CPT-79103 Level 4 Est. Patient 17:10:53 CDT Checo Conklin MD [facility] CPT-61872 Level 3 Est. Patient 15:56:22 CDT Checo Conklin MD [facility] CPT-23063 Level 3 Est. Patient 15:29:07 CDT Checo Conklin MD [facility] CPT-27680 Level 3 Est. Patient 14:38:41 CDT Checo Conklin MD [facility] CPT-27303 Level 3 Est. Patient 15:22:03 [employer] Thomas reynolds DO [facility] CPT-59839 Level 3 Est. Patient 13:34:17 [employer] Checo Conklin MD [facility] CPT-97064 Level 3 Est. Patient 12:29:32 CDT Dangelo arroyo MD [facility] CPT-40315 Level 3 Est. Patient 16:53:02 CDT Checo Conklin MD [facility] CPT-65364 Level 3 Est. Patient 16:37:13 CDT Checo Conklin MD [facility] CPT-44940 Level 3 Est. Patient 16:16:59 CDT Paul Hamlin MD [facility] CPT-94156 Level 3 Est. Patient 14:20:13 CDT Dangelo arroyo MD [facility] CPT-15909 Level 4 Est. Patient 11:29:33 CDT Checo Conklin MD [facility] CPT-15228 Level 3 Est. Patient 17:08:31 CDT Checo Conklin MD [facility] CPT-65030 Level 3 Est. Patient 16:50:42 [employer] Checo Conklin MD [facility] CPT-54308 Level 4 Est. Patient 09:26:08 [employer] Checo Conklin MD [facility] CPT-46549 Level 3 Est. Patient 11:37:10 CDT Checo Conklin MD [facility] CPT-05184 Level 4 Est. Patient 14:07:38 CDT Checo Conklin MD [facility] CPT-29228 Level 3 Est. Patient 09:54:41 CDT Checo Conklin MD [facility] CPT-02641 Level 3 Est. Patient 11:10:54 CDT Paul Hamlin MD [facility] CPT-75733 Level 3 Est. Patient 14:16:56 [employer] Checo Conklin MD [facility] CPT-73057 Level 3 Est. Patient 11:04:11 [employer] Checo Conklin MD [facility] CPT-21152 Level 3 Est. Patient 17:09:26 CDT Dangelo arroyo MD [facility] CPT-59613 Level 3 Est. Patient 16:54:37 CDT Checo Conklin MD [facility] Procedures Code Procedure Name Date Entry Date Standard Desc ription CPT-99000 UA w micro - LAB USE ONLY 17:06:46 CDT 2015 CPT-25866 [facility] Qual - LAB USE ONLY 17:06:46 CDT 05/06 CPT-31300 CMP - LAB USE ONLY 17:06:46 CDT CPT-12836 CBC with Diff - LAB USE ONLY 17:06:45 CDT 2 CPT-14810 Venipuncture Draw Fee 17:06:45 CDT CPT-LR Lesion Removal 19:53:27 CDT CPT-OV Office Visit 11:31:28 CDT CPT-21945 Tubersol 09:39:29 CDT CPT-J2550 Phenergan 25 mg (Promethazine) 13:59:02 [employer] CPT-J1885 Toradol 60 mg (Ketorolac) 13:59:02 [employer] 2012
--- OUTSIDE RECORDS SUMMARY | 2019-09-29 01:59 | XMS REPORT | Clinical Summary ---
Author Author Admin, Bethany Gonzales Organization [facility] Address Unknown Phone Unavailable Allergies, Adverse Reactions, [...] Checo Conklin MD Mastalgia ICD-611.71 Inactive Checo Jsohua Sinusitis ICD-461.9 Inactive Checo Conklin MD Insect [...] TABS 1.5 po qd PAROX ETINE HCL 81601542272 Active Checo Conklin MD Active FLUTICASONE PROPIONATE 50 MCG/ACT NASAL SUSP 2 sprays/ nostril qd PRN Congestion/Allergies FLUTICASONE PROPIONATE 2422591878 5 No Longer Active Checo Conklin MD Active AMOXICILLIN 500 MG ORAL CAPS 2 po BID x 10 days 09/12 AMOXICILLIN 23646202579 No Longer Active Checo Conklin MD Activ e MIRALAX ORAL POWD 8.5 to 17g po qd PRN Constipation POLYETHYLENE GLYCOL 3350 72202684522 Active Checo Conklin MD Active CLARITIN 10 MG TAB 1 tablet by mouth daily as needed for allergi es LORATADINE 95608522472 No Longer Active Checo Conklin MD Active BACTRIM DS 800-160 MG TAB 1 tab by mouth twice daily 2 TRIMETHOPRIM-SULFAMETHOXAZOLE 59386936964 No Longer Active Tanner Carrillo MD Active DIFLUCAN 150 MG TAB 1 tablet by mouth qod FLUCO NAZOLE 32965096843 No Longer Active Efren Medel APRN Active AZITHROMYCIN 250 MG TABS 2 po qd x 1 day, then 1 po qd x 4 days AZITHROMYCIN 73115084975 No Longer Active Efren Medel APRN Active FLAGYL 500 MG TAB 1 tablet by mouth bid METRONI DAZOLE 16749863883 No Longer Active Checo Conklin MD Active FOCALIN XR 10 MG ORAL [id number] 1 po q a.m. DEX METHYLPHENIDATE HCL 33258226996 Active Checo Conklin MD Active MAGNESIUM CITRATE 1.745 GM/30ML ORAL SOLN 150ml po BID PRN C onstipation MAGNESIUM CITRATE 75179780649 No Longer Active Checo Conklin MD Active BACTROBAN 2 % CREAM Apply to affected area BID for up to 10 days MUPIROCIN CALCIUM 13868211630 No Longer Active Checo Conklin MD Active HYDROCODONE-ACETAMINOPHEN 5-325 MG TABS 1 tab by mouth every 6 hours as needed HYDROCODONE-ACETAMINOPHEN 90133806008 No Longer Activ e Checo Conklin MD Active IBUPROFEN 800 MG TABS 1 tab every 8 hours with food 20 31/03/21 IBUPROFEN 25996514158 No Longer Active Checo Conklin MD Activ e DIFLUCAN 150 MG TAB 1 tablet by mouth if needed, hold until symptoms start FLUCONAZOLE 22692932110 No Longer Active Checo Ortiz MD Active BACTRIM DS 800-160 MG TAB 1 tab by mouth twice daily 2 TRIMETHOPRIM-SULFAMETHOXAZOLE 00693069588 No Longer Active Corry leong LPN Active HYDROCODONE-ACETAMINOPHEN 5-325 MG TABS 0.5 to 1 tab b y mouth every 6 hours as needed HYDROCODONE-ACETAMINOPHEN 71490015538 No Longer Active Checo Conklin MD Active ONDANSETRON [address] one tablet on tongue and allow to dissolve every 6 hours as needed for vomitting ONDANSETRO N 36304504636 No Longer Active Checo Conklin MD Active COMPRO 25 MG RECTAL SUPP insert or apply one supposit ory rectally as directed every 12 hours as needed for nausea PROCHLORPERA ZINE 09710500855 No Longer Active Checo Conklin MD Active SUMATRIPTAN SUCCINATE 100 MG ORAL TABS Take one PRN for migrane SUMATRIPTAN SUCCINATE 09504629028 No Longer Active Checo Conklin MD Active TRAVEL SICKNESS 25 MG ORAL CHEW chew and swallow one t ablet every 6 hours as needed MECLIZINE HCL 67592213135 No Longer Active Joe Conklin MD Active BUPROPION HCL ER (SR) 100 MG ORAL [id number] take one t ablet by mouth one time daily for one week then take 1 two times daily BUPROPION HCL 25028631319 No Longer Active Checo Conklin MD Activ e TERBINAFINE HCL 250 MG ORAL TABS take one table PO one time abran y TERBINAFINE HCL 66744481916 No Longer Active Checo Conklin MD Active METOCLOPRAMIDE HCL 10 MG ORAL TABS take one PO tid PRN nausea 20 29/12/14 METOCLOPRAMIDE HCL 46520412798 No Longer Active Checo Conklin MD Active DICLOFENAC SODIUM 75 MG TBEC 1 tablet by mouth twice daily P RN Knee pain DICLOFENAC SODIUM 17646954749 No Longer Active Checo Conklin MD Active LAMISIL 250 MG TAB 1 po qd TERBINAFINE HCL 548 33429262 No Longer Active Checo Conklin MD Active REGLAN 10 MG TAB 1 po TID PRN Nausea METOCLOPRA MIDE HCL 08238023455 No Longer Active Checo Conklin MD Active CELEXA 20 MG TABS 1 tablet by mouth daily CITALOPRAM HYDROBROMIDE 36590624779 No Longer Active Checo Conklin MD Activ e AZITHROMYCIN 250 MG TABS 2 po qd x 1 day, then 1 po qd x 4 days AZITHROMYCIN 66285183286 No Longer Active Checo Conklin MD Active HYDROCODONE-ACETAMINOPHEN 5-325 MG TABS 1 po q 6hr PRN Pain 2013 HYDROCODONE-ACETAMINOPHEN 46692600004 No Longer Active Lenora Conklin MD Active PHENAZOPYRIDINE HCL 200 MG TABS take 1 tab po TID for bladder pa in PHENAZOPYRIDINE HCL 52332134703 No Longer Active Checo Joshua Active CIPRO 500 MG TAB 1 tablet by mouth twice daily CIPROFLOXACIN HCL 19951160537 No Longer Active Dangelo Rangel MD Active HYDROCODONE-ACETAMINOPHEN 5-325 MG TABS 1/2 to 1 po q 4 hour s prn cough HYDROCODONE-ACETAMINOPHEN 32536041169 No Longer Activ e Dangelo Rangel MD Active BACTRIM DS 800-160 MG TABS 1 po BID x 7 days 0 SULFAMETHOXAZOLE-TRIMETHOPRIM 61725907875 No Longer Active Checo Conklin MD Active PREDNISONE 20 MG TAB 2 tabs daily for 3 days, 1 t ab daily for 3 days, 1/2 tab daily for 2 days PREDNISONE 95383549373 No Longer Active Checo Conklin MD Active TRIAMCINOLONE ACETONIDE 0.1 % OINT Apply to affected a reas TID for up to 2 weeks TRIAMCINOLONE ACETONIDE 05571051409 No Longer A ctive Checo Conklin MD Active CEFDINIR 300 MG CAPS by mouth twice a day CEFDI JAZZY 40135642187 No Longer Active Dangelo Rangel MD Active BUPROPION HCL (SMOKING DETER) 150 MG [id number] 1 a day for 1 week then 1 twice a day BUPROPION HCL (SMOKING DETER) 96975389643 No Lo nger Active Checo Conklin MD Active SIMVASTATIN 20 MG TABS 1 po qd SIMVASTATIN 1501647428 5 Active Checo Conklin MD Active CHANTIX STARTING MONTH KARTHIK 0.5 MG X 11 & 1 MG X 42 TAB S 0.5mg daily for 3 days, then 0.5mg BID for 4 days, then 1mg BID VARENICLINE TARTRATE 66815001273 No Longer Active Checo Conklin MD Activ e XANAX 0.5 MG TABS 1 po BID PRN anxiety ALPRAZOLAM 89370953219 Active Checo Conklin MD Active CONCERTA 18 MG CR-TABS 1 po q a.m. METHYLPHENID ATE HCL 85144634429 No Longer Active Checo Conklin MD Active AMBIEN 5 MG TAB 1 po qHS PRN Insomnia ZOLPIDEM TARTRATE 89655414894 Active Checo Conklin MD Active TRAZODONE HCL 100 MG TAB 0.5 to 1 po qHS PRN Insomnia TRAZODONE HCL 92510654221 No Longer Active Checo Conklin MD Acti ve FIORICET 325-50-40 MG TAB 1 tablet by mouth four times daily as needed [id number] 48035949610 No Longer Active Checo Conklin MD Active PHENERGAN CREAM* 25mg applied to wrist q6hr PRN Nausea PHENERGAN CREAM* No Longer Active Checo Conklin MD A ctive FLONASE 50 MCG/ACT SUSP 1 spray each nostril am and hs FLUTICASONE PROPIONATE 22737848039 No Longer Active Checo Conklin MD Activ e ANTIPYRINE-BENZOCAINE 5.4-1.4 % SOLN 1-2 drops in affected ear BENZOCAINE-ANTIPYRINE 12622786539 No Longer Active Checo Conklin MD Active CEFDINIR 300 MG CAPS 1 po bid CEFDINIR 18515831 120 No Longer Active Checo Conklin MD Active PREDNISONE 20 MG TAB 2 tabs daily for 3 days, 1 t ab daily for 3 days, 1/2 tab daily for 2 days PREDNISONE 26653689800 No Longer Active Aracelis Conklin MD Active AZITHROMYCIN 250 MG TABS 2 po qd x 1 day, then 1 po qd x 4 days AZITHROMYCIN 96270343201 No Longer Active Checo Conklin MD Active PREDNISONE 20 MG TAB 2 tabs daily for 3 days, 1 t ab daily for 3 days, 1/2 tab daily for 2 days PREDNISONE 48536737201 No Longer Active Checo Conklin MD Active ZITHROMAX Z-KARTHIK 250 MG TABS 2 today, then 1 daily for 4 days 201 09/18/28 AZITHROMYCIN 26913970491 No Longer Active Paul Hamlin MD Active FOCALIN XR 10 MG [id number] 1 po q a.m. D EXMETHYLPHENIDATE HCL 57773359504 No Longer Active Paul Hamlin MD Activ e PERCOCET 10-325 MG TABS 1 tablet every 6 hours as needed for pain OXYCODONE-ACETAMINOPHEN 83255568666 No Longer Active Paul Hamlin MD Active LORTAB 5 5-500 MG TABS 1/2 to 1 tablet by mouth flaquito ry 4 hours as needed for pain HYDROCODONE-ACETAMINOPHEN 39012487832 No Longer Active Checo Conklin MD Active FOCALIN XR 15 MG [id number] 1 po q a.m. D EXMETHYLPHENIDATE HCL 86643729418 No Longer Active Checo Conklin MD Activ e ZOFRAN ODT 4 MG TBDP 1 po q6hr PRN Nausea ONDAN SETRON 89600709036 No Longer Active Checo Conklin MD Active PERCOCET 5-325 MG TABS 1 tablet by mouth every 6 hours as needed OXYCODONE-ACETAMINOPHEN 01427192856 No Longer Active Checo Conklin MD Active PYRIDIUM 200 MG TABS take 1 tab po TID prn urinary pain. 0 PHENAZOPYRIDINE HCL 80317203887 No Longer Active Checo Conklin MD Active FLUCONAZOLE 150 MG TABS take 1 tab po qday once 04/06 FLUCONAZOLE 80188214084 No Longer Active Dangelo Rangel MD Acti ve CIPRO 500 MG TAB 1 tablet by mouth twice daily CIPROFLOXACIN HCL 49104624083 No Longer Active Dangelo Rangel MD Active PYRIDIUM 200 MG TABS take 1 tab po TID prn urinary pain. 0 PYRIDIUM 200 MG TABS 6971742 PHENAZOPYRIDINE HCL Inactive PERCOCET 5-325 MG TABS 1 tablet by mouth every 6 hours as needed PERCOCET 5-325 MG TABS 2079326 OXYCODONE-ACETAMINOPHEN I nactive ZOFRAN ODT 4 MG TBDP 1 po q6hr PRN Nausea ZOFRAN ODT 4 MG TBDP 711991 ONDANSETRON Inactive FOCALIN XR 15 MG [id number] 1 po q a.m. F OCALIN XR 15 MG [id number] DEXMETHYLPHENIDATE HCL Inactive LORTAB 5 5-500 MG TABS 1/2 to 1 tablet by mouth flaquito ry 4 hours as needed for pain LORTAB 5 5-500 MG TABS HYDROCODONE-A CETAMINOPHEN Inactive PERCOCET 10-325 MG TABS 1 tablet every 6 hours as needed for pain PERCOCET 10-325 MG TABS 1082257 OXYCODONE-ACETAMINOPHEN Inactive FOCALIN XR 10 MG [id number] 1 po q a.m. F OCALIN XR 10 MG [id number] DEXMETHYLPHENIDATE HCL Inactive CEFDINIR 300 MG CAPS 1 po bid CEFDINIR 300 MG CAPS 20 0346 CEFDINIR Inactive ANTIPYRINE-BENZOCAINE 5.4-1.4 % SOLN 1-2 drops in affected ear ANTIPYRINE-BENZOCAINE 5.4-1.4 % SOLN BENZOCAINE-ANTIPYRINE I nactive FLONASE 50 MCG/ACT SUSP 1 spray each nostril am and hs FLONASE 50 MCG/ACT SUSP 9295326 FLUTICASONE PROPIONATE Inactive PHENERGAN CREAM* 25mg applied to wrist q6hr PRN Nausea PHENERGAN CREAM* Inactive FIORICET 325-50-40 MG TAB 1 tablet by mouth four times daily as needed FIORICET 325-50-40 MG TAB ACETAMINOPHEN-C AFF-BUTALBITAL Inactive TRAZODONE HCL 100 MG TAB 0.5 to 1 po qHS PRN Insomnia TRAZODONE HCL 100 MG TAB 167579 TRAZODONE HCL Inactive CONCERTA 18 MG CR-TABS [...] s prn cough HYDROCODONE-ACETAMINOPHEN 5-325 MG TABS 947711 HYDROCODONE-ACETAMINOPHEN Inactive PHENAZOPYRIDINE HCL 200 MG TABS take 1 tab po TID for bladder pa in PHENAZOPYRIDINE HCL 200 MG TABS 3298386 PHENAZOPYRIDINE HCL Inactive HYDROCODONE-ACETAMINOPHEN 5-325 MG TABS 1 po q 6hr PRN Pain 2013 HYDROCODONE-ACETAMINOPHEN 5-325 MG TABS 386652 HYDROCODONE-ACETAMINOPHEN Inactive CELEXA 20 MG TABS 1 tablet by mouth daily CELEXA 20 MG TABS 486947 CITALOPRAM HYDROBROMIDE Inactive REGLAN 10 MG TAB 1 po TID PRN Nausea REGLAN 10 MG TAB 545599 METOCLOPRAMIDE HCL Inactive LAMISIL 250 MG TAB 1 po qd LAMISIL 250 MG TAB 297205 TERBINAFINE HCL Inactive DICLOFENAC SODIUM 75 MG TBEC 1 tablet by mouth twice daily P RN Knee pain DICLOFENAC SODIUM 75 MG TBEC 879628 DICLOFENAC S ODIUM Inactive METOCLOPRAMIDE HCL 10 MG ORAL TABS take one PO tid PRN nausea 20 29/12/14 METOCLOPRAMIDE HCL 10 MG ORAL TABS 045045 METOCLOPRAMID E HCL Inactive TERBINAFINE HCL 250 MG ORAL TABS take one table PO one time abran y TERBINAFINE HCL 250 MG ORAL TABS 425772 TERBINAFINE HCL Inactive BUPROPION HCL ER (SR) 100 MG ORAL [id number] take one t ablet by mouth one time daily for one week then take 1 two times daily BUPROPION HCL ER (SR) 100 MG ORAL [id number] BUPROPION HCL Inacti ve TRAVEL SICKNESS 25 MG ORAL CHEW chew and swallow one t ablet every 6 hours as needed TRAVEL SICKNESS 25 MG ORAL CHEW 988900 MECLIZINE HCL Inactive SUMATRIPTAN SUCCINATE 100 MG ORAL TABS Take one PRN for migrane SUMATRIPTAN SUCCINATE 100 MG ORAL TABS 106356 SUMATRIPT AN SUCCINATE Inactive COMPRO 25 MG RECTAL SUPP insert or apply one supposit ory rectally as directed every 12 hours as needed for nausea COMP RO 25 MG RECTAL SUPP 309085 PROCHLORPERAZINE Inactive ONDANSETRON [address] one tablet on tongue and allow to dissolve every 6 hours as needed for vomitting ON DANSETRON 8 MG ORAL TBDP 649125 ONDANSETRON Inactive HYDROCODONE-ACETAMINOPHEN 5-325 MG TABS 0.5 to 1 tab b y mouth every 6 hours as needed HYDROCODONE-ACETAMINOPHEN 5-325 MG TABS 8 84536 HYDROCODONE-ACETAMINOPHEN Inactive BACTRIM DS 800-160 MG TAB 1 tab by mouth twice daily 2 BACTRIM DS 800-160 MG TAB 570783 TRIMETHOPRIM-SULFAMETHOXAZOLE Inac tive DIFLUCAN 150 MG TAB 1 tablet by mouth if needed, hold until symptoms start DIFLUCAN 150 MG TAB 19760325 FLUCONAZOLE Inactive IBUPROFEN 800 MG TABS 1 tab every 8 hours with food 31/03/21 IBUPROFEN 800 MG TABS 858394 IBUPROFEN Inactive HYDROCODONE-ACETAMINOPHEN 5-325 MG TABS 1 tab by mouth every 6 hours as needed HYDROCODONE-ACETAMINOPHEN 5-325 MG TABS 916753 HYDROCODONE-ACETAMINOPHEN Inactive BACTROBAN 2 % CREAM Apply to affected area BID for up to 10 days BACTROBAN 2 % CREAM 088670 MUPIROCIN CALCIUM Inactive MAGNESIUM CITRATE 1.745 GM/30ML ORAL SOLN 150ml po BID PRN C onstipation MAGNESIUM CITRATE 1.745 GM/30ML ORAL SOLN 367274 0 MAGNESIUM CITRATE Inactive DIFLUCAN 150 MG TAB 1 tablet by mouth qod DIFLUCAN 150 MG TAB 928146 FLUCONAZOLE Inactive BACTRIM DS 800-160 MG TAB 1 tab by mouth twice daily 2 BACTRIM DS 800-160 MG TAB 823439 TRIMETHOPRIM-SULFAMETHOXAZOLE Inac tive CLARITIN 10 MG TAB 1 tablet by mouth daily as needed for allergi es CLARITIN 10 MG TAB 978347 LORATADINE Inactive FLUTICASONE PROPIONATE 50 MCG/ACT NASAL SUSP 2 sprays/ nostril qd PRN Congestion/Allergies FLUTICASONE PROPION ATE 50 MCG/ACT NASAL SUSP 5644398 FLUTICASONE PROPIONATE Inactive CIPRO 500 MG TAB 1 tablet by mouth twice daily CIPRO 500 MG TAB 820291 CIPROFLOXACIN HCL Inactive FLUCONAZOLE 150 MG TABS take 1 tab po qday once 04/06 FLUCONAZOLE 150 MG TABS 014555 FLUCONAZOLE Inactive ZITHROMAX Z-KARTHIK 250 MG TABS 2 today, then 1 daily for 4 days 201 09/18/28 ZITHROMAX Z-KARTHIK 250 MG TABS 2118974 AZITHROMYCIN Inac tive PREDNISONE 20 MG TAB 2 tabs daily for 3 days, 1 t ab daily for 3 days, /2 tab daily for 2 days PREDNISONE 20 MG TAB 251161 PREDNISON E Inactive AZITHROMYCIN 250 MG TABS 2 po qd x 1 day, then 1 po qd x 4 days AZITHROMYCIN 250 MG TABS 8483003 AZITHROMYCIN Inactiv e PREDNISONE 20 MG TAB 2 tabs daily for 3 days, 1 t ab daily for 3 days, 1/2 tab daily for 2 days PREDNISONE 20 MG TAB 475916 PREDNISON E Inactive CEFDINIR 300 MG CAPS by mouth twice a day CEFDINIR 300 MG CAPS 407843 CEFDINIR Inactive TRIAMCINOLONE ACETONIDE 0.1 % OINT Apply to affected a reas TID for up to 2 weeks TRIAMCINOLONE ACETONIDE 0.1 % OINT 594884 6 TRIAMCINOLONE ACETONIDE Inactive PREDNISONE 20 MG TAB 2 tabs daily for 3 days, 1 t ab daily for 3 days, 1/2 tab daily for 2 days PREDNISONE 20 MG TAB 886775 PREDNISON E Inactive BACTRIM DS 800-160 MG TABS 1 po BID x 7 days 0 BACTRIM DS 800-160 MG TABS 411309 SULFAMETHOXAZOLE-TRIMETHOPRIM Inactive CIPRO 500 MG TAB 1 tablet by mouth twice daily CIPRO 500 MG TAB 058615 CIPROFLOXACIN HCL Inactive AZITHROMYCIN 250 MG TABS 2 po qd x 1 day, then 1 po qd x 4 days AZITHROMYCIN 250 MG TABS 6152959 AZITHROMYCIN Inactiv e FLAGYL 500 MG TAB 1 tablet by mouth bid FLAGYL 500 MG TAB 568566 METRONIDAZOLE Inactive AZITHROMYCIN 250 MG TABS 2 po qd x 1 day, then 1 po qd x 4 days AZITHROMYCIN 250 MG TABS 5667304 AZITHROMYCIN Inactiv e AMOXICILLIN 500 MG ORAL CAPS 2 po BID x 10 days 09/12 AMOXICILLIN 500 MG ORAL CAPS 479787 AMOXICILLIN Inactive Immunizations Vaccine Administration Date Value Standard Michael cription TB-PPD (tuberculin purified protein derivative), intra dermal administration Tubersol Vital Signs Date Name Value Unit Range Description blood pressure, diastolic 83 mm[Hg] BP mathew [...] [facility] - Chemistry sodium, serum 139 mmol/L 874-186 6487/10/21 carbon dioxide, venous blood 33.5 mmol/L 21.0-32 [...] PANEL - Chemistry cholesterol, serum 192 mg/dL 712-137 4307/02/20 HDL cholesterol, serum 31 mg/dL > OR [...] 11 .0-15.0 platelet count 218 THOUSAND/UL 10*3/mm3 414-060 7718/02/20 mean platelet volume 9.7 fL 7.5-12.5 Lab Report: Chlamydia/GC [facility]/[id number] - Lab chlamydia DNA probe NOT DETECTED NOT DETECTED Lab Report: Chlamydia/[facility]/[id number] - Microbiology Neisseria gonorrhoeae DNA probe NOT [...] ative Encounters Code Encounter Date Provider Facility CPT-75613 Level 3 Est. Patient 11:29:55 CDT Checo Conklin MD [facility] CPT-99702 Level 4 Est. Patient 11:08:12 RESIDENCY DIRECTOR Checo Conklin MD [facility]-17229 Level 4 Est. Patient 16:06:48 RESIDENCY DIRECTOR Checo Conklin MD [facility]-43686 Level 3 Est. Patient 09:11:49 CDT Efren almendarez [facility] CPT-91463 Level 2 Est. Patient 19:53:27 CDT Tanner hill MD [facility]-41281 Level 3 Est. Patient 09:15:34 CDT Efren almendarez [facility] CPT-27271 Level 3 Est. Patient 11:28:51 RESIDENCY DIRECTOR Efren almendarez [facility]-73476 Level 4 Est. Patient 13:55:46 RESIDENCY DIRECTOR Checo Conklin MD [facility] CPT-33484 Level 4 Est. Patient 17:10:53 CDT Checo Conklin MD [facility] CPT-65977 Level 3 Est. Patient 15:56:22 CDT Checo Conklin MD [facility] CPT-91232 Level 3 Est. Patient 15:29:07 CDT Checo Conklin MD [facility] CPT-52013 Level 3 Est. Patient 14:38:41 CDT Checo Conklin MD [facility] CPT-20121 Level 3 Est. Patient 15:22:03 RESIDENCY DIRECTOR Thomas reynolds DO [facility] CPT-19090 Level 3 Est. Patient 13:34:17 RESIDENCY DIRECTOR Checo Conklin MD [facility] CPT-85421 Level 3 Est. Patient 12:29:32 CDT Dangelo arroyo MD [facility] CPT-16077 Level 3 Est. Patient 16:53:02 CDT Checo Conklin MD [facility] CPT-01096 Level 3 Est. Patient 16:37:13 CDT Checo Conklin MD [facility] CPT-76275 Level 3 Est. Patient 16:16:59 CDT Paul Hamlin MD [facility] CPT-15978 Level 3 Est. Patient 14:20:13 CDT Dangelo arroyo MD [facility] CPT-20609 Level 4 Est. Patient 11:29:33 CDT Checo Conklin MD [facility] CPT-82957 Level 3 Est. Patient 17:08:31 CDT Checo Conklin MD [facility] CPT-89553 Level 3 Est. Patient 16:50:42 RESIDENCY DIRECTOR Checo Conklin MD [facility] CPT-71824 Level 4 Est. Patient 09:26:08 RESIDENCY DIRECTOR Checo Conklin MD [facility] CPT-73336 Level 3 Est. Patient 11:37:10 CDT Checo Conklin MD [facility] CPT-34624 Level 4 Est. Patient 14:07:38 CDT Checo Conklin MD [facility] CPT-35291 Level 3 Est. Patient 09:54:41 CDT Checo Conklin MD [facility] CPT-90556 Level 3 Est. Patient 11:10:54 CDT Paul Hamlin MD [facility] CPT-33178 Level 3 Est. Patient 14:16:56 RESIDENCY DIRECTOR Checo Conklin MD [facility] CPT-13510 Level 3 Est. Patient 11:04:11 RESIDENCY DIRECTOR Checo Conklin MD [facility] CPT-58856 Level 3 Est. Patient 17:09:26 CDT Dangelo arroyo MD [facility] CPT-68016 Level 3 Est. Patient 16:54:37 CDT Checo Conklin MD [facility] Procedures Code Procedure Name Date Entry Date Standard Desc ription CPT-80056 UA w micro - LAB USE ONLY 17:06:46 CDT 2015 CPT-93359 BHCG Qual - LAB USE ONLY 17:06:46 CDT 05/06 CPT-73439 CMP - LAB USE ONLY 17:06:46 CDT CPT-30579 CBC with Diff - LAB USE ONLY 17:06:45 CDT 2 CPT-59355 Venipuncture Draw Fee 17:06:45 CDT CPT-LR Lesion Removal 19:53:27 CDT CPT-OV Office Visit 11:31:28 CDT CPT-74787 Tubersol 09:39:29 CDT CPT-J2550 Phenergan 25 mg (Promethazine) 13:59:02 RESIDENCY DIRECTOR CPT-J1885 Toradol 60 mg (Ketorolac) 13:59:02 RESIDENCY DIRECTOR 2012
--- OUTSIDE RECORDS SUMMARY | 2019-09-29 01:59 | XMS REPORT | Clinical Summary ---
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 Tanner Carrillo MD Neoplasm of uncertain behavior of skin Abdominal pain, generalized 789.07 Active Jillina Frazell POSTDOCTORAL FELLOW Abdominal pain, generalized Urinary frequency 788.41 Active Jillina Frazell POSTDOCTORAL FELLOW Urinary frequency BREAST CANCER ICD-V16.3 Inactive Checo [...] tab by mouth twice daily 2 TRIMETHOPRIM-SULFAMETHOXAZOLE 23293590593 No Longer Active Tanner Carrillo MD Active DIFLUCAN 150 MG TAB 1 tablet by mouth qod FLUCO NAZOLE 35860971383 No Longer Active Efren Medel APRN Active CLARITIN 10 MG TAB 1 tablet by mouth daily as needed for allergies LORATADINE 52251069625 Active Jillina Frazell POSTDOCTORAL FELLOW Active AZITHROMYCIN 250 MG TABS 2 po qd x 1 day, then 1 po qd x 4 days AZITHROMYCIN 13071931721 No Longer Active Jillina Lizy MAX Active FLAGYL 500 MG TAB 1 tablet by mouth bid METRONI DAZOLE 17797292170 No Longer Active Checo Conklin MD Active FOCALIN XR 10 MG ORAL [id number] 1 po q a.m. DEX METHYLPHENIDATE HCL 70122168133 Active Checo Conklin MD Active MAGNESIUM CITRATE 1.745 GM/30ML ORAL SOLN 150ml po BID PRN C onstipation MAGNESIUM CITRATE 66130920880 No Longer Active Checo Conklin MD Active BACTROBAN 2 % CREAM Apply to affected area BID for up to 10 days MUPIROCIN CALCIUM 11513626151 No Longer Active Chceo Conklin MD Active HYDROCODONE-ACETAMINOPHEN 5-325 MG TABS 1 tab by mouth every 6 hours as needed HYDROCODONE-ACETAMINOPHEN 24526241146 No Longer Activ e Checo Conklin MD Active IBUPROFEN 800 MG TABS 1 tab every 8 hours with food 31/03/21 IBUPROFEN 47227910830 No Longer Active Checo Conklin MD Activ e DIFLUCAN 150 MG TAB 1 tablet by mouth if needed, hold until symptoms start FLUCONAZOLE 72744103651 No Longer Active Checo Ortiz MD Active BACTRIM DS 800-160 MG TAB 1 tab by mouth twice daily 2 TRIMETHOPRIM-SULFAMETHOXAZOLE 60302091962 No Longer Active Corry leong LPN Active MIRALAX PACK 1 po qd PRN Constipation POLYETHYL JOEL GLYCOL 3350 90328339103 Active Checo Conklin MD Active HYDROCODONE-ACETAMINOPHEN 5-325 MG TABS 0.5 to 1 tab b y mouth every 6 hours as needed HYDROCODONE-ACETAMINOPHEN 03269948136 No Longer Active Checo Conklin MD Active ONDANSETRON [address] one tablet on tongue and allow to dissolve every 6 hours as needed for vomitting ONDANSETRO N 80337183208 No Longer Active Checo Conklin MD Active COMPRO 25 MG RECTAL SUPP insert or apply one supposit ory rectally as directed every 12 hours as needed for nausea PROCHLORPERA ZINE 02571384997 No Longer Active Checo Conklin MD Active SUMATRIPTAN SUCCINATE 100 MG ORAL TABS Take one PRN for migrane SUMATRIPTAN SUCCINATE 29993542228 No Longer Active Checo Conklin MD Active TRAVEL SICKNESS 25 MG ORAL CHEW chew and swallow one t ablet every 6 hours as needed MECLIZINE HCL 21726290208 No Longer Active Joe Conklin MD Active BUPROPION HCL ER (SR) 100 MG ORAL [id number] take one t ablet by mouth one time daily for one week then take 1 two times daily BUPROPION HCL 42345363622 No Longer Active Checo Conklin MD Activ e TERBINAFINE HCL 250 MG ORAL TABS take one table PO one time abran y TERBINAFINE HCL 22132816487 No Longer Active Checo Conklin MD Active METOCLOPRAMIDE HCL 10 MG ORAL TABS take one PO tid PRN nausea 20 29/12/14 METOCLOPRAMIDE HCL 10420409764 No Longer Active Checo Conklin MD Active DICLOFENAC SODIUM 75 MG TBEC 1 tablet by mouth twice daily P RN Knee pain DICLOFENAC SODIUM 30200888137 No Longer Active Checo Conklin MD Active LAMISIL 250 MG TAB 1 po qd TERBINAFINE HCL 548 27790579 No Longer Active Checo Conklin MD Active REGLAN 10 MG TAB 1 po TID PRN Nausea METOCLOPRA MIDE HCL 44991030537 No Longer Active Checo Conklin MD Active CELEXA 20 MG TABS 1 tablet by mouth daily CITALOPRAM HYDROBROMIDE 22873812445 No Longer Active Checo Conklin MD Activ e AZITHROMYCIN 250 MG TABS 2 po qd x 1 day, then 1 po qd x 4 days AZITHROMYCIN 16483486938 No Longer Active Checo Conklin MD Active HYDROCODONE-ACETAMINOPHEN 5-325 MG TABS 1 po q 6hr PRN Pain 2013 HYDROCODONE-ACETAMINOPHEN 61828830491 No Longer Active Lenora Conklin MD Active PHENAZOPYRIDINE HCL 200 MG TABS take 1 tab po TID for bladder pa in PHENAZOPYRIDINE HCL 51502485521 No Longer Active Checo Joshua Active CIPRO 500 MG TAB 1 tablet by mouth twice daily CIPROFLOXACIN HCL 16971759502 No Longer Active Dangelo Rangel MD Active HYDROCODONE-ACETAMINOPHEN 5-325 MG TABS 1/2 to 1 po q 4 hour s prn cough HYDROCODONE-ACETAMINOPHEN 71402284939 No Longer Activ e Dangelo Rangel MD Active BACTRIM DS 800-160 MG TABS 1 po BID x 7 days 0 SULFAMETHOXAZOLE-TRIMETHOPRIM 95813171194 No Longer Active Checo Conklin MD Active PREDNISONE 20 MG TAB 2 tabs daily for 3 days, 1 t ab daily for 3 days, 1/2 tab daily for 2 days PREDNISONE 19967115063 No Longer Active Checo Conklin MD Active TRIAMCINOLONE ACETONIDE 0.1 % OINT Apply to affected a reas TID for up to 2 weeks TRIAMCINOLONE ACETONIDE 81956596362 No Longer A ctive Checo Conklin MD Active CEFDINIR 300 MG CAPS by mouth twice a day CEFDI JAZZY 66744539539 No Longer Active Dangelo Rangel MD Active BUPROPION HCL (SMOKING DETER) 150 MG [id number] 1 a day for 1 week then 1 twice a day BUPROPION HCL (SMOKING DETER) 32548324150 No Lo nger Active Checo Conklin MD Active SIMVASTATIN 20 MG TABS 1 po qd SIMVASTATIN 4983088743 5 Active Checo Conklin MD Active CHANTIX STARTING MONTH KARTHIK 0.5 MG X 11 & 1 MG X 42 TAB S 0.5mg daily for 3 days, then 0.5mg BID for 4 days, then 1mg BID VARENICLINE TARTRATE 77413809287 No Longer Active Checo Conklin MD Activ e XANAX 0.5 MG TABS 1 po BID PRN anxiety ALPRAZOLAM 37424127845 Active Checo Conklin MD Active CONCERTA 18 MG CR-TABS 1 po q a.m. METHYLPHENID ATE HCL 71849327530 No Longer Active Checo Conklin MD Active AMBIEN 5 MG TAB 1 po qHS PRN Insomnia ZOLPIDEM TARTRATE 05197114498 Active Checo Conklin MD Active TRAZODONE HCL 100 MG TAB 0.5 to 1 po qHS PRN Insomnia TRAZODONE HCL 33701611618 No Longer Active Checo Conklin MD Acti ve FIORICET 325-50-40 MG TAB 1 tablet by mouth four times daily as needed [id number] 12295789575 No Longer Active Checo Conklin MD Active PHENERGAN CREAM* 25mg applied to wrist q6hr PRN Nausea PHENERGAN CREAM* No Longer Active Checo Conklin MD A ctive FLONASE 50 MCG/ACT SUSP 1 spray each nostril am and hs FLUTICASONE PROPIONATE 12303666633 No Longer Active Checo Simms e ANTIPYRINE-BENZOCAINE 5.4-1.4 % SOLN 1-2 drops in affected ear BENZOCAINE-ANTIPYRINE 07108278315 No Longer Active Checo Conklin MD Active CEFDINIR 300 MG CAPS 1 po bid CEFDINIR 87785185 120 No Longer Active Checo Conklin MD Active PREDNISONE 20 MG TAB 2 tabs daily for 3 days, 1 t ab daily for 3 days, 1/2 tab daily for 2 days PREDNISONE 43353239337 No Longer Active Aracelis Conklin MD Active AZITHROMYCIN 250 MG TABS 2 po qd x 1 day, then 1 po qd x 4 days AZITHROMYCIN 47080938844 No Longer Active Checo Conklin MD Active PREDNISONE 20 MG TAB 2 tabs daily for 3 days, 1 t ab daily for 3 days, 1/2 tab daily for 2 days PREDNISONE 60669063286 No Longer Active Checo Conklin MD Active ZITHROMAX Z-KARTHIK 250 MG TABS 2 today, then 1 daily for 4 days 201 09/18/28 AZITHROMYCIN 87804101849 No Longer Active Paul Hamlin MD Active FOCALIN XR 10 MG [id number] 1 po q a.m. D EXMETHYLPHENIDATE HCL 42782388114 No Longer Active Paul Hamlin MD Activ e PERCOCET 10-325 MG TABS 1 tablet every 6 hours as needed for pain OXYCODONE-ACETAMINOPHEN 27068632709 No Longer Active Paul Hamlin MD Active LORTAB 5 5-500 MG TABS 1/2 to 1 tablet by mouth flaquito ry 4 hours as needed for pain HYDROCODONE-ACETAMINOPHEN 77413026911 No Longer Active Checo Conklin MD Active FOCALIN XR 15 MG [id number] 1 po q a.m. D EXMETHYLPHENIDATE HCL 82810988315 No Longer Active Checo Conklin MD Activ e ZOFRAN ODT 4 MG TBDP 1 po q6hr PRN Nausea ONDAN SETRON 55111871738 No Longer Active Checo Conklin MD Active PERCOCET 5-325 MG TABS 1 tablet by mouth every 6 hours as needed OXYCODONE-ACETAMINOPHEN 38046854580 No Longer Active Checo Conklin MD Active PYRIDIUM 200 MG TABS take 1 tab po TID prn urinary pain. 0 PHENAZOPYRIDINE HCL 62002550843 No Longer Active Checo Conklin MD Active FLUCONAZOLE 150 MG TABS take 1 tab po qday once 04/06 FLUCONAZOLE 48182867096 No Longer Active Dangelo Rangel MD Acti ve CIPRO 500 MG TAB 1 tablet by mouth twice daily CIPROFLOXACIN HCL 46080793910 No Longer Active Dangelo Rangel MD Active PYRIDIUM 200 MG TABS take 1 tab po TID prn urinary pain. 0 PYRIDIUM 200 MG TABS 2778409 PHENAZOPYRIDINE HCL Inactive PERCOCET 5-325 MG TABS 1 tablet by mouth every 6 hours as needed PERCOCET 5-325 MG TABS 0634293 OXYCODONE-ACETAMINOPHEN I nactive ZOFRAN ODT 4 MG TBDP 1 po q6hr PRN Nausea ZOFRAN ODT 4 MG TBDP 518525 ONDANSETRON Inactive FOCALIN XR 15 MG [id number] 1 po q a.m. F OCALIN XR 15 MG [id number] DEXMETHYLPHENIDATE HCL Inactive LORTAB 5 5-500 MG TABS 1/2 to 1 tablet by mouth flaquito ry 4 hours as needed for pain LORTAB 5 5-500 MG TABS HYDROCODONE-A CETAMINOPHEN Inactive PERCOCET 10-325 MG TABS 1 tablet every 6 hours as needed for pain PERCOCET 10-325 MG TABS 2615200 OXYCODONE-ACETAMINOPHEN Inactive FOCALIN XR 10 MG [id number] 1 po q a.m. F OCALIN XR 10 MG [id number] DEXMETHYLPHENIDATE HCL Inactive CEFDINIR 300 MG CAPS 1 po bid CEFDINIR 300 MG CAPS 20 0346 CEFDINIR Inactive ANTIPYRINE-BENZOCAINE 5.4-1.4 % SOLN 1-2 drops in affected ear ANTIPYRINE-BENZOCAINE 5.4-1.4 % SOLN 761519 BENZOCAINE-ANTIPYRINE I nactive FLONASE 50 MCG/ACT SUSP [...] PRN Insomnia TRAZODONE HCL 100 MG TAB 255780 TRAZODONE HCL Inactive CONCERTA 18 MG CR-TABS [...] s prn cough HYDROCODONE-ACETAMINOPHEN 5-325 MG TABS 545110 HYDROCODONE-ACETAMINOPHEN Inactive PHENAZOPYRIDINE HCL 200 MG TABS take 1 tab po TID for bladder pa in PHENAZOPYRIDINE HCL 200 MG TABS 8285883 PHENAZOPYRIDINE HCL Inactive HYDROCODONE-ACETAMINOPHEN 5-325 MG TABS 1 po q 6hr PRN Pain 2013 HYDROCODONE-ACETAMINOPHEN 5-325 MG TABS 458509 HYDROCODONE-ACETAMINOPHEN Inactive CELEXA 20 MG TABS 1 tablet by mouth daily CELEXA 20 MG TABS 621052 CITALOPRAM HYDROBROMIDE Inactive REGLAN 10 MG TAB 1 po TID PRN Nausea REGLAN 10 MG TAB 426038 METOCLOPRAMIDE HCL Inactive LAMISIL 250 MG TAB 1 po qd LAMISIL 250 MG TAB 804316 TERBINAFINE HCL Inactive DICLOFENAC SODIUM 75 MG TBEC 1 tablet by mouth twice daily P RN Knee pain DICLOFENAC SODIUM 75 MG TBEC 868189 DICLOFENAC S ODIUM Inactive METOCLOPRAMIDE HCL 10 MG ORAL TABS take one PO tid PRN nausea 20 29/12/14 METOCLOPRAMIDE HCL 10 MG ORAL TABS 877131 METOCLOPRAMID E HCL Inactive TERBINAFINE HCL 250 MG ORAL TABS take one table PO one time abran y TERBINAFINE HCL 250 MG ORAL TABS 405195 TERBINAFINE HCL Inactive BUPROPION HCL ER (SR) 100 MG ORAL [id number] take one t ablet by mouth one time daily for one week then take 1 two times daily BUPROPION HCL ER (SR) 100 MG ORAL [id number] BUPROPION HCL Inacti ve TRAVEL SICKNESS 25 MG ORAL CHEW chew and swallow one t ablet every 6 hours as needed TRAVEL SICKNESS 25 MG ORAL CHEW 001432 MECLIZINE HCL Inactive SUMATRIPTAN SUCCINATE 100 MG ORAL TABS Take one PRN for migrane SUMATRIPTAN SUCCINATE 100 MG ORAL TABS 727681 SUMATRIPT AN SUCCINATE Inactive COMPRO 25 MG RECTAL SUPP insert or apply one supposit ory rectally as directed every 12 hours as needed for nausea COMP RO 25 MG RECTAL SUPP 912312 PROCHLORPERAZINE Inactive ONDANSETRON [address] one tablet on tongue and allow to dissolve every 6 hours as needed for vomitting ON DANSETRON 8 MG ORAL TBDP 559965 ONDANSETRON Inactive HYDROCODONE-ACETAMINOPHEN 5-325 MG TABS 0.5 to 1 tab b y mouth every 6 hours as needed HYDROCODONE-ACETAMINOPHEN 5-325 MG TABS 8 43627 HYDROCODONE-ACETAMINOPHEN Inactive BACTRIM DS 800-160 MG TAB 1 tab by mouth twice daily 2 BACTRIM DS 800-160 MG TAB 19820918 TRIMETHOPRIM-SULFAMETHOXAZOLE Inac tive DIFLUCAN 150 MG TAB 1 tablet by mouth if needed, hold until symptoms start DIFLUCAN 150 MG TAB 19760325 FLUCONAZOLE Inactive IBUPROFEN 800 MG TABS 1 tab every 8 hours with food 20 31/03/21 IBUPROFEN 800 MG TABS 508177 IBUPROFEN Inactive HYDROCODONE-ACETAMINOPHEN 5-325 MG TABS 1 tab by mouth every 6 hours as needed HYDROCODONE-ACETAMINOPHEN 5-325 MG TABS 573303 HYDROCODONE-ACETAMINOPHEN Inactive BACTROBAN 2 % CREAM Apply to affected area BID for up to 10 days BACTROBAN 2 % CREAM 638590 MUPIROCIN CALCIUM Inactive MAGNESIUM CITRATE 1.745 GM/30ML ORAL SOLN 150ml po BID PRN C onstipation MAGNESIUM CITRATE 1.745 GM/30ML ORAL SOLN 063674 0 MAGNESIUM CITRATE Inactive DIFLUCAN 150 MG TAB 1 tablet by mouth qod DIFLUCAN 150 MG TAB 922435 FLUCONAZOLE Inactive BACTRIM DS 800-160 MG TAB 1 tab by mouth twice daily 2 BACTRIM DS 800-160 MG TAB 805994 TRIMETHOPRIM-SULFAMETHOXAZOLE Inac tive CIPRO 500 MG TAB 1 tablet by mouth twice daily CIPRO 500 MG TAB 338866 CIPROFLOXACIN HCL Inactive FLUCONAZOLE 150 MG TABS take 1 tab po qday once 04/06 FLUCONAZOLE 150 MG TABS 19760325 FLUCONAZOLE Inactive ZITHROMAX Z-KARTHIK 250 MG TABS 2 today, then 1 daily for 4 days 201 09/18/28 ZITHROMAX Z-KARTHIK 250 MG TABS 7858856 AZITHROMYCIN Inac tive PREDNISONE 20 MG TAB 2 tabs daily for 3 days, 1 t ab daily for 3 days, 1/2 tab daily for 2 days PREDNISONE 20 MG TAB 954217 PREDNISON E Inactive AZITHROMYCIN 250 MG TABS 2 po qd x 1 day, then 1 po qd x 4 days AZITHROMYCIN 250 MG TABS 7794189 AZITHROMYCIN Inactiv e PREDNISONE 20 MG TAB 2 tabs daily for 3 days, 1 t ab daily for 3 days, 1/2 tab daily for 2 days PREDNISONE 20 MG TAB 163209 PREDNISON E Inactive CEFDINIR 300 MG CAPS by mouth twice a day CEFDINIR 300 MG CAPS 066432 CEFDINIR Inactive TRIAMCINOLONE ACETONIDE 0.1 % OINT Apply to affected a reas TID for up to 2 weeks TRIAMCINOLONE ACETONIDE 0.1 % OINT 323954 6 TRIAMCINOLONE ACETONIDE Inactive PREDNISONE 20 MG TAB 2 tabs daily for 3 days, 1 t ab daily for 3 days, 1/2 tab daily for 2 days PREDNISONE 20 MG TAB 228028 PREDNISON E Inactive BACTRIM DS 800-160 MG TABS 1 po BID x 7 days 0 BACTRIM DS 800-160 MG TABS 853480 SULFAMETHOXAZOLE-TRIMETHOPRIM Inactive CIPRO 500 MG TAB 1 tablet by mouth twice daily CIPRO 500 MG TAB 235414 CIPROFLOXACIN HCL Inactive AZITHROMYCIN 250 MG TABS 2 po qd x 1 day, then 1 po qd x 4 days AZITHROMYCIN 250 MG TABS 6971803 AZITHROMYCIN Inactiv e FLAGYL 500 MG TAB 1 tablet by mouth bid FLAGYL 500 MG TAB 575699 METRONIDAZOLE Inactive AZITHROMYCIN 250 MG TABS 2 po qd x 1 day, then 1 po qd x 4 days AZITHROMYCIN 250 MG TABS 1956665 AZITHROMYCIN Inactiv e Immunizations Vaccine Administration Date [...] Report: CBC W/DIFF, Comp. Metabolic Panel, Qual [facility] [place] - Chemistry sodium, serum 139 mmol/L 088-457 9784/10/21 carbon dioxide, venous blood 33.5 mmol/L 21.0-32 [...] Report: CBC W/DIFF, Comp. Metabolic Panel, Qual [facility] [place] - Hematology leukocyte count, blood [...] 248 10^3/MM^3 10*3/mm3 142-424 Lab Report: Chlamydia/[facility]/[id number] - Lab chlamydia DNA probe NOT DETECTED NOT DETECTED Lab Report: Chlamydia/[facility]/53688 - Microbiology Neisseria gonorrhoeae DNA probe NOT DETECTED NO T DETECTED Lab Report: Comp. Metabolic Panel, Lipid Panel, Thyroid Stimulating Horm ... - Chemistry protein, total urine random Negative mg/dL Negative RBC, urine, dipstick Negative Negative sodium, serum 141 mmol/L 679-760 2937/01/26 carbon dioxide, venous blood 30.0 mmol/L 21.0-32 .0 potassium, serum 4.0 mmol/L 3.5-5.2 chloride, serum 105 mmol/L 98-107 blood glucose 85 mg/dL 65-110 urea nitrogen, blood 9 mg/dL 7-18 creatinine, serum 0.66 mg/dL 0.55-1.30 alanine aminotransferase (SGPT), serum 31 U/L 12-78 aspartate aminotransferase (SGOT), serum 21 U/L 15-37 calcium, serum 8.2 mg/dL 8.5-10.1 bilirubin, serum, total 1.10 mg/dL 0.00-1.00 cholesterol, serum 178 mg/dL 224-840 8397/01/26 triglyceride, serum, fasting 149 mg/dL 30-200 HDL [...] ... - Chemistry sodium, serum 137 mmol/L 902-883 2663/05/27 carbon dioxide, venous blood 29.1 mmol/L 21.0-32 [...] 5.0-8.5 Encounters Code Encounter Date Provider Facility CPT-13422 Level 3 Est. Patient 09:11:49 CDT Efren almendarez APRN [facility] CPT-15818 Level 2 Est. Patient 19:53:27 CDT Tanner hill MD [facility] CPT-78530 Level 3 Est. Patient 09:15:34 CDT Efren [facility] CPT-19493 Level 3 Est. Patient 11:28:51 WELFARE ADVISER Efren [facility] CPT-56559 Level 4 Est. Patient 13:55:46 WELFARE ADVISER Checo Conklin MD [facility] CPT-45363 Level 4 Est. Patient 17:10:53 CDT Checo Conklin MD [facility] CPT-54112 Level 3 Est. Patient 15:56:22 CDT Checo Conklin MD [facility] CPT-35676 Level 3 Est. Patient 15:29:07 CDT Checo Conklin MD [facility] CPT-30668 Level 3 Est. Patient 14:38:41 CDT Checo Conklin MD [facility] CPT-08366 Level 3 Est. Patient 15:22:03 WELFARE ADVISER Thomas reynolds DO [facility] CPT-09918 Level 3 Est. Patient 13:34:17 WELFARE ADVISER Checo Conklin MD [facility] CPT-41914 Level 3 Est. Patient 12:29:32 CDT Dangelo arroyo MD [facility]-98445 Level 3 Est. Patient 16:53:02 CDT Checo Conklin MD [facility] CPT-01657 Level 3 Est. Patient 16:37:13 CDT Checo Conklin MD [facility] CPT-61097 Level 3 Est. Patient 16:16:59 CDT Paul Hamlin MD [facility]-93266 Level 3 Est. Patient 14:20:13 CDT Dangelo arroyo MD [facility] CPT-67138 Level 4 Est. Patient 11:29:33 CDT Checo Conklin MD [facility] CPT-20974 Level 3 Est. Patient 17:08:31 CDT Checo Conklin MD [facility] CPT-76792 Level 3 Est. Patient 16:50:42 WELFARE ADVISER Checo Conklin MD [facility] CPT-81272 Level 4 Est. Patient 09:26:08 WELFARE ADVISER Checo Conklin MD [facility] CPT-60286 Level 3 Est. Patient 11:37:10 CDT Checo Conklin MD [facility] CPT-53687 Level 4 Est. Patient 14:07:38 CDT Checo Conklin MD [facility] CPT-33200 Level 3 Est. Patient 09:54:41 CDT Checo Conklin MD [facility] CPT-23263 Level 3 Est. Patient 11:10:54 CDT Paul Hamlin MD [facility] CPT-57240 Level 3 Est. Patient 14:16:56 WELFARE ADVISER Checo Conklin MD [facility] CPT-52833 Level 3 Est. Patient 11:04:11 WELFARE ADVISER Checo Conklin MD [facility] CPT-35664 Level 3 Est. Patient 17:09:26 CDT Dangelo arroyo MD [facility] CPT-08044 Level 3 Est. Patient 16:54:37 CDT Checo Conklin MD [facility] Procedures Code Procedure Name Date Entry Date Standard Desc ription CPT-55790 UA w micro - LAB USE ONLY 17:06:46 CDT 2015 CPT-66943 [facility] Qual - LAB USE ONLY 17:06:46 CDT 05/06 CPT-64112 CMP - LAB USE ONLY 17:06:46 CDT CPT-34881 CBC with Diff - LAB USE ONLY 17:06:45 CDT 2 CPT-25014 Venipuncture Draw Fee 17:06:45 CDT CPT-LR Lesion Removal 19:53:27 CDT CPT-OV Office Visit 11:31:28 CDT CPT-83095 Tubersol 09:39:29 CDT CPT-J2550 Phenergan 25 mg (Promethazine) 13:59:02 WELFARE ADVISER CPT-J1885 Toradol 60 mg (Ketorolac) 13:59:02 WELFARE ADVISER 2012
--- OUTSIDE RECORDS SUMMARY | 2019-09-29 01:59 | XMS REPORT | Clinical Summary ---
Author Author Admin, Bethany Ayala [facility] Address Unknown Phone Unavailable Allergies, Adverse Reactions, [...] ABDOMINAL PAIN RIGHT LOWER QUADRANT 789.03 Resolved Chceo Conklin MD Abdominal pain, right lower quadrant [...] vulvovaginitis, unspecified Pharyngitis 462 Active Jillina Frazell FISH CUTTING MACHINE OPERATOR Acute pharyngitis Cough 786.2 Active Jillina Frasandra FISH CUTTING MACHINE OPERATOR Cough Pedal edema 782.3 Active Jillina Lizy FISH CUTTING MACHINE OPERATOR Edema BREAST CANCER ICD-V16.3 Inactive Checo [...] 1 tab by mouth twice daily TRIMETHOPRIM-SULFAMETHOXAZOLE 95844602460 Active Jillina Frazell FISH CUTTING MACHINE OPERATOR Active DIFLUCAN 150 MG TAB 1 tablet by mouth qod FLUCO NAZOLE 24487499131 No Longer Active Jillina Frazell FISH CUTTING MACHINE OPERATOR Active CLARITIN 10 MG TAB 1 tablet by mouth daily as needed for allergies LORATADINE 65682525023 Active Efren Medel FISH CUTTING MACHINE OPERATOR Active AZITHROMYCIN 250 MG TABS 2 po qd x 1 day, then 1 po qd x 4 days AZITHROMYCIN 19954880766 No Longer Active Efren Medel FISH CUTTING MACHINE OPERATOR Active FLAGYL 500 MG TAB 1 tablet by mouth bid METRONI DAZOLE 35888097680 No Longer Active Checo Conklin MD Active FOCALIN XR 10 MG ORAL [id number] 1 po q a.m. DEX METHYLPHENIDATE HCL 89478299121 Active Checo Conklin MD Active MAGNESIUM CITRATE 1.745 GM/30ML ORAL SOLN 150ml po BID PRN C onstipation MAGNESIUM CITRATE 23164961192 No Longer Active Checo Conklin MD Active BACTROBAN 2 % CREAM Apply to affected area BID for up to 10 days MUPIROCIN CALCIUM 41686193564 No Longer Active Checo Conklin MD Active HYDROCODONE-ACETAMINOPHEN 5-325 MG TABS 1 tab by mouth every 6 hours as needed HYDROCODONE-ACETAMINOPHEN 28308931982 No Longer Activ e Checo Conklin MD Active IBUPROFEN 800 MG TABS 1 tab every 8 hours with food 20 31/03/21 IBUPROFEN 76066569717 No Longer Active Checo Conklin MD Activ e DIFLUCAN 150 MG TAB 1 tablet by mouth if needed, hold until symptoms start FLUCONAZOLE 29820362313 No Longer Active Checo Ortiz MD Active BACTRIM DS 800-160 MG TAB 1 tab by mouth twice daily 2 TRIMETHOPRIM-SULFAMETHOXAZOLE 18283899064 No Longer Active Corry leong LPN Active MIRALAX PACK 1 po qd PRN Constipation POLYETHYL JOEL GLYCOL 3350 54953373763 Active Checo Conklin MD Active HYDROCODONE-ACETAMINOPHEN 5-325 MG TABS 0.5 to 1 tab b y mouth every 6 hours as needed HYDROCODONE-ACETAMINOPHEN 27786315192 No Longer Active Checo Conklin MD Active ONDANSETRON [address] one tablet on tongue and allow to dissolve every 6 hours as needed for vomitting ONDANSETRO N 70671589829 No Longer Active Checo Conklin MD Active COMPRO 25 MG RECTAL SUPP insert or apply one supposit ory rectally as directed every 12 hours as needed for nausea PROCHLORPERA ZINE 01941478977 No Longer Active Cehco Conklin MD Active SUMATRIPTAN SUCCINATE 100 MG ORAL TABS Take one PRN for migrane SUMATRIPTAN SUCCINATE 45439758013 No Longer Active Checo Conklin MD Active TRAVEL SICKNESS 25 MG ORAL CHEW chew and swallow one t ablet every 6 hours as needed MECLIZINE HCL 55929572337 No Longer Active Joe Conklin MD Active BUPROPION HCL ER (SR) 100 MG ORAL [id number] take one t ablet by mouth one time daily for one week then take 1 two times daily BUPROPION HCL 09094656402 No Longer Active Checo Conklin MD Activ e TERBINAFINE HCL 250 MG ORAL TABS take one table PO one time abran y TERBINAFINE HCL 08898167032 No Longer Active Checo Conklin MD Active METOCLOPRAMIDE HCL 10 MG ORAL TABS take one PO tid PRN nausea 20 29/12/14 METOCLOPRAMIDE HCL 07573391974 No Longer Active Checo Conklin MD Active DICLOFENAC SODIUM 75 MG TBEC 1 tablet by mouth twice daily P RN Knee pain DICLOFENAC SODIUM 91664825279 No Longer Active Checo Conklin MD Active LAMISIL 250 MG TAB 1 po qd TERBINAFINE HCL 548 16916909 No Longer Active Checo Conklin MD Active REGLAN 10 MG TAB 1 po TID PRN Nausea METOCLOPRA MIDE HCL 25317621605 No Longer Active Checo Conklin MD Active CELEXA 20 MG TABS 1 tablet by mouth daily CITALOPRAM HYDROBROMIDE 56471041766 No Longer Active Checo Conklin MD Activ e AZITHROMYCIN 250 MG TABS 2 po qd x 1 day, then 1 po qd x 4 days AZITHROMYCIN 86550373443 No Longer Active Checo Conklin MD Active HYDROCODONE-ACETAMINOPHEN 5-325 MG TABS 1 po q 6hr PRN Pain 2013 HYDROCODONE-ACETAMINOPHEN 63396473248 No Longer Active Lenora Conklin MD Active PHENAZOPYRIDINE HCL 200 MG TABS take 1 tab po TID for bladder pa in PHENAZOPYRIDINE HCL 74195937000 No Longer Active Checo Joshua Active CIPRO 500 MG TAB 1 tablet by mouth twice daily CIPROFLOXACIN HCL 58604139734 No Longer Active Dangelo Rangel MD Active HYDROCODONE-ACETAMINOPHEN 5-325 MG TABS 1/2 to 1 po q 4 hour s prn cough HYDROCODONE-ACETAMINOPHEN 12939303767 No Longer Activ e Dangelo Rangel MD Active BACTRIM DS 800-160 MG TABS 1 po BID x 7 days 0 SULFAMETHOXAZOLE-TRIMETHOPRIM 38910378940 No Longer Active Checo Conklin MD Active PREDNISONE 20 MG TAB 2 tabs daily for 3 days, 1 t ab daily for 3 days, 1/2 tab daily for 2 days PREDNISONE 97141160050 No Longer Active Checo Conklin MD Active TRIAMCINOLONE ACETONIDE 0.1 % OINT Apply to affected a reas TID for up to 2 weeks TRIAMCINOLONE ACETONIDE 54557104431 No Longer A ctive Checo Conklin MD Active CEFDINIR 300 MG CAPS by mouth twice a day CEFDI JAZZY 96232607431 No Longer Active Dangelo Rangel MD Active BUPROPION HCL (SMOKING DETER) 150 MG [id number] 1 a day for 1 week then 1 twice a day BUPROPION HCL (SMOKING DETER) 98246342766 No Lo nger Active Checo Conklin MD Active SIMVASTATIN 20 MG TABS 1 po qd SIMVASTATIN 9292862244 5 Active Checo Conklin MD Active CHANTIX STARTING MONTH KARTHIK 0.5 MG X 11 & 1 MG X 42 TAB S 0.5mg daily for 3 days, then 0.5mg BID for 4 days, then 1mg BID VARENICLINE TARTRATE 02043456608 No Longer Active Checo Conklin MD Activ e XANAX 0.5 MG TABS 1 po BID PRN anxiety ALPRAZOLAM 38565530223 Active Checo Conklin MD Active CONCERTA 18 MG CR-TABS 1 po q a.m. METHYLPHENID ATE HCL 17249813629 No Longer Active Checo Conklin MD Active AMBIEN 5 MG TAB 1 po qHS PRN Insomnia ZOLPIDEM TARTRATE 81667754339 Active Checo Conklin MD Active TRAZODONE HCL 100 MG TAB 0.5 to 1 po qHS PRN Insomnia TRAZODONE HCL 76962141569 No Longer Active Checo Conklin MD Acti ve FIORICET 325-50-40 MG TAB 1 tablet by mouth four times daily as needed [id number] 93716830013 No Longer Active Checo Conklin MD Active PHENERGAN CREAM* 25mg applied to wrist q6hr PRN Nausea PHENERGAN CREAM* No Longer Active Checo Conklin MD A ctive FLONASE 50 MCG/ACT SUSP 1 spray each nostril am and hs FLUTICASONE PROPIONATE 14607918023 No Longer Active Checo Conklin MD Activ e ANTIPYRINE-BENZOCAINE 5.4-1.4 % SOLN 1-2 drops in affected ear BENZOCAINE-ANTIPYRINE 35969871605 No Longer Active Checo Conklin MD Active CEFDINIR 300 MG CAPS 1 po bid CEFDINIR 79430729 120 No Longer Active Checo Conklin MD Active PREDNISONE 20 MG TAB 2 tabs daily for 3 days, 1 t ab daily for 3 days, 1/2 tab daily for 2 days PREDNISONE 97950200182 No Longer Active Aracelis Conklin MD Active AZITHROMYCIN 250 MG TABS 2 po qd x 1 day, then 1 po qd x 4 days AZITHROMYCIN 77114444172 No Longer Active Checo Conklin MD Active PREDNISONE 20 MG TAB 2 tabs daily for 3 days, 1 t ab daily for 3 days, 1/2 tab daily for 2 days PREDNISONE 28970159484 No Longer Active Checo Conklin MD Active ZITHROMAX Z-KARTHIK 250 MG TABS 2 today, then 1 daily for 4 days 201 09/18/28 AZITHROMYCIN 25775451572 No Longer Active Paul Hamlin MD Active FOCALIN XR 10 MG [id number] 1 po q a.m. D EXMETHYLPHENIDATE HCL 61846197237 No Longer Active Paul Hamlin MD Activ e PERCOCET 10-325 MG TABS 1 tablet every 6 hours as needed for pain OXYCODONE-ACETAMINOPHEN 59129060917 No Longer Active Paul Hamlin MD Active LORTAB 5 5-500 MG TABS 1/2 to 1 tablet by mouth flaquito ry 4 hours as needed for pain HYDROCODONE-ACETAMINOPHEN 48167093011 No Longer Active Checo Conklin MD Active FOCALIN XR 15 MG [id number] 1 po q a.m. D EXMETHYLPHENIDATE HCL 05087401753 No Longer Active Checo Conklin MD Activ e ZOFRAN ODT 4 MG TBDP 1 po q6hr PRN Nausea ONDAN SETRON 65970638060 No Longer Active Checo Conklin MD Active PERCOCET 5-325 MG TABS 1 tablet by mouth every 6 hours as needed OXYCODONE-ACETAMINOPHEN 27249064296 No Longer Active Checo Conklin MD Active PYRIDIUM 200 MG TABS take 1 tab po TID prn urinary pain. 0 PHENAZOPYRIDINE HCL 51585526555 No Longer Active Checo Conklin MD Active FLUCONAZOLE 150 MG TABS take 1 tab po qday once 04/06 FLUCONAZOLE 45475000407 No Longer Active Dangelo Rangel MD Acti ve CIPRO 500 MG TAB 1 tablet by mouth twice daily CIPROFLOXACIN HCL 44337593692 No Longer Active Dangelo Rangel MD Active PYRIDIUM 200 MG TABS take 1 tab po TID prn urinary pain. 0 PYRIDIUM 200 MG TABS 9703310 PHENAZOPYRIDINE HCL Inactive PERCOCET 5-325 MG TABS 1 tablet by mouth every 6 hours as needed PERCOCET 5-325 MG TABS 4056245 OXYCODONE-ACETAMINOPHEN I nactive ZOFRAN ODT 4 MG TBDP 1 po q6hr PRN Nausea ZOFRAN ODT 4 MG TBDP 769535 ONDANSETRON Inactive FOCALIN XR 15 MG [id number] 1 po q a.m. F OCALIN XR 15 MG [id number] DEXMETHYLPHENIDATE HCL Inactive LORTAB 5 5-500 MG TABS 1/2 to 1 tablet by mouth flaquito ry 4 hours as needed for pain LORTAB 5 5-500 MG TABS HYDROCODONE-A CETAMINOPHEN Inactive PERCOCET 10-325 MG TABS 1 tablet every 6 hours as needed for pain PERCOCET 10-325 MG TABS 7995965 OXYCODONE-ACETAMINOPHEN Inactive FOCALIN XR 10 MG [id number] 1 po q a.m. F OCALIN XR 10 MG [id number] DEXMETHYLPHENIDATE HCL Inactive CEFDINIR 300 MG CAPS 1 po bid CEFDINIR 300 MG CAPS 20 0346 CEFDINIR Inactive ANTIPYRINE-BENZOCAINE 5.4-1.4 % SOLN 1-2 drops in affected ear ANTIPYRINE-BENZOCAINE 5.4-1.4 % SOLN 334824 BENZOCAINE-ANTIPYRINE I nactive FLONASE 50 MCG/ACT SUSP 1 spray each nostril am and hs FLONASE 50 MCG/ACT SUSP 122825 FLUTICASONE PROPIONATE Inactive PHENERGAN CREAM* 25mg applied to wrist q6hr PRN Nausea PHENERGAN CREAM* Inactive FIORICET 325-50-40 MG TAB 1 tablet by mouth four times daily as needed FIORICET 325-50-40 MG TAB ACETAMINOPHEN-C AFF-BUTALBITAL Inactive TRAZODONE HCL 100 MG TAB 0.5 to 1 po qHS PRN Insomnia TRAZODONE HCL 100 MG TAB 784282 TRAZODONE HCL Inactive CONCERTA 18 MG CR-TABS [...] s prn cough HYDROCODONE-ACETAMINOPHEN 5-325 MG TABS 014219 HYDROCODONE-ACETAMINOPHEN Inactive PHENAZOPYRIDINE HCL 200 MG TABS take 1 tab po TID for bladder pa in PHENAZOPYRIDINE HCL 200 MG TABS 0996419 PHENAZOPYRIDINE HCL Inactive HYDROCODONE-ACETAMINOPHEN 5-325 MG TABS 1 po q 6hr PRN Pain 2013 HYDROCODONE-ACETAMINOPHEN 5-325 MG TABS 108597 HYDROCODONE-ACETAMINOPHEN Inactive CELEXA 20 MG TABS 1 tablet by mouth daily CELEXA 20 MG TABS 927202 CITALOPRAM HYDROBROMIDE Inactive REGLAN 10 MG TAB 1 po TID PRN Nausea REGLAN 10 MG TAB 623205 METOCLOPRAMIDE HCL Inactive LAMISIL 250 MG TAB 1 po qd LAMISIL 250 MG TAB 247150 TERBINAFINE HCL Inactive DICLOFENAC SODIUM 75 MG TBEC 1 tablet by mouth twice daily P RN Knee pain DICLOFENAC SODIUM 75 MG TBEC 386406 DICLOFENAC S ODIUM Inactive METOCLOPRAMIDE HCL 10 MG ORAL TABS take one PO tid PRN nausea 20 29/12/14 METOCLOPRAMIDE HCL 10 MG ORAL TABS 054316 METOCLOPRAMID E HCL Inactive TERBINAFINE HCL 250 MG ORAL TABS take one table PO one time abran y TERBINAFINE HCL 250 MG ORAL TABS 163070 TERBINAFINE HCL Inactive BUPROPION HCL ER (SR) 100 MG ORAL [id number] take one t ablet by mouth one time daily for one week then take 1 two times daily BUPROPION HCL ER (SR) 100 MG ORAL [id number] BUPROPION HCL Inacti ve TRAVEL SICKNESS 25 MG ORAL CHEW chew and swallow one t ablet every 6 hours as needed TRAVEL SICKNESS 25 MG ORAL CHEW 769106 MECLIZINE HCL Inactive SUMATRIPTAN SUCCINATE 100 MG ORAL TABS Take one PRN for migrane SUMATRIPTAN SUCCINATE 100 MG ORAL TABS 002201 SUMATRIPT AN SUCCINATE Inactive COMPRO 25 MG RECTAL SUPP insert or apply one supposit ory rectally as directed every 12 hours as needed for nausea COMP RO 25 MG RECTAL SUPP 662696 PROCHLORPERAZINE Inactive ONDANSETRON [address] one tablet on tongue and allow to dissolve every 6 hours as needed for vomitting ON DANSETRON 8 MG ORAL TBDP 138743 ONDANSETRON Inactive HYDROCODONE-ACETAMINOPHEN 5-325 MG TABS 0.5 to 1 tab b y mouth every 6 hours as needed HYDROCODONE-ACETAMINOPHEN 5-325 MG TABS 8 70427 HYDROCODONE-ACETAMINOPHEN Inactive BACTRIM DS 800-160 MG TAB 1 tab by mouth twice daily 2 BACTRIM DS 800-160 MG TAB 995725 TRIMETHOPRIM-SULFAMETHOXAZOLE Inac tive DIFLUCAN 150 MG TAB 1 tablet by mouth if needed, hold until symptoms start DIFLUCAN 150 MG TAB 400596 FLUCONAZOLE Inactive IBUPROFEN 800 MG TABS 1 tab every 8 hours with food 31/03/21 IBUPROFEN 800 MG TABS 648822 IBUPROFEN Inactive HYDROCODONE-ACETAMINOPHEN 5-325 MG TABS 1 tab by mouth every 6 hours as needed HYDROCODONE-ACETAMINOPHEN 5-325 MG TABS 011079 HYDROCODONE-ACETAMINOPHEN Inactive BACTROBAN 2 % CREAM Apply to affected area BID for up to 10 days BACTROBAN 2 % CREAM 006848 MUPIROCIN CALCIUM Inactive MAGNESIUM CITRATE 1.745 GM/30ML ORAL SOLN 150ml po BID PRN C onstipation MAGNESIUM CITRATE 1.745 GM/30ML ORAL SOLN 009513 0 MAGNESIUM CITRATE Inactive DIFLUCAN 150 MG TAB 1 tablet by mouth qod DIFLUCAN 150 MG TAB 424764 FLUCONAZOLE Inactive CIPRO 500 MG TAB 1 tablet by mouth twice daily CIPRO 500 MG TAB 367760 CIPROFLOXACIN HCL Inactive FLUCONAZOLE 150 MG TABS take 1 tab po qday once 04/06 FLUCONAZOLE 150 MG TABS 826249 FLUCONAZOLE Inactive ZITHROMAX Z-KARTHIK 250 MG TABS 2 today, then 1 daily for 4 days 201 09/18/28 ZITHROMAX Z-KARTHIK 250 MG TABS 9092682 AZITHROMYCIN Inac tive PREDNISONE 20 MG TAB 2 tabs daily for 3 days, 1 t ab daily for 3 days, 1/2 tab daily for 2 days PREDNISONE 20 MG TAB 506781 PREDNISON E Inactive AZITHROMYCIN 250 MG TABS 2 po qd x 1 day, then 1 po qd x 4 days AZITHROMYCIN 250 MG TABS 2953183 AZITHROMYCIN Inactiv e PREDNISONE 20 MG TAB 2 tabs daily for 3 days, 1 t ab daily for 3 days, 1/2 tab daily for 2 days PREDNISONE 20 MG TAB 856379 PREDNISON E Inactive CEFDINIR 300 MG CAPS by mouth twice a day CEFDINIR 300 MG CAPS 803971 CEFDINIR Inactive TRIAMCINOLONE ACETONIDE 0.1 % OINT Apply to affected a reas TID for up to 2 weeks TRIAMCINOLONE ACETONIDE 0.1 % OINT 079034 6 TRIAMCINOLONE ACETONIDE Inactive PREDNISONE 20 MG TAB 2 tabs daily for 3 days, 1 t ab daily for 3 days, 1/2 tab daily for 2 days PREDNISONE 20 MG TAB 742438 PREDNISON E Inactive BACTRIM DS 800-160 MG TABS 1 po BID x 7 days 0 BACTRIM DS 800-160 MG TABS 474590 SULFAMETHOXAZOLE-TRIMETHOPRIM Inactive CIPRO 500 MG TAB 1 tablet by mouth twice daily CIPRO 500 MG TAB 121395 CIPROFLOXACIN HCL Inactive AZITHROMYCIN 250 MG TABS 2 po qd x 1 day, then 1 po qd x 4 days AZITHROMYCIN 250 MG TABS 1738152 AZITHROMYCIN Inactiv e FLAGYL 500 MG TAB 1 tablet by mouth bid FLAGYL 500 MG TAB 458825 METRONIDAZOLE Inactive AZITHROMYCIN 250 MG TABS 2 po qd x 1 day, then 1 po qd x 4 days AZITHROMYCIN 250 MG TABS 0268858 AZITHROMYCIN Inactiv e Immunizations Vaccine Administration Date [...] ... - Chemistry sodium, serum 141 mmol/L 766-216 7940/01/26 carbon dioxide, venous blood 30.0 mmol/L 21.0-32 .0 potassium, serum 4.0 mmol/L 3.5-5.2 chloride, serum 105 mmol/L 98-107 blood glucose 85 mg/dL 65-110 urea nitrogen, blood 9 mg/dL 7-18 creatinine, serum 0.66 mg/dL 0.55-1.30 alanine aminotransferase (SGPT), serum 31 U/L 12-78 aspartate aminotransferase (SGOT), serum 21 U/L 15-37 calcium, serum 8.2 mg/dL 8.5-10.1 bilirubin, serum, total 1.10 mg/dL 0.00-1.00 cholesterol, serum 178 mg/dL 354-652 5719/01/26 triglyceride, serum, fasting 149 mg/dL 30-200 HDL [...] ... - Chemistry sodium, serum 137 mmol/L 668-571 6103/05/27 carbon dioxide, venous blood 29.1 mmol/L 21.0-32 [...] 5.0-8.5 Encounters Code Encounter Date Provider Facility CPT-40242 Level 3 Est. Patient 09:15:34 CDT Efren almendarez [facility] CPT-65154 Level 3 Est. Patient 11:28:51 AD TERMINAL MAKEUP OPERATOR Efren almendarez [facility] CPT-77835 Level 4 Est. Patient 13:55:46 AD TERMINAL MAKEUP OPERATOR Checo Conklin MD [facility] CPT-10052 Level 4 Est. Patient 17:10:53 CDT Checo Conklin MD [facility] CPT-33145 Level 3 Est. Patient 15:56:22 CDT Checo Conklin MD [facility] CPT-61724 Level 3 Est. Patient 15:29:07 CDT Checo Conklin MD [facility] CPT-75207 Level 3 Est. Patient 14:38:41 CDT Checo Conklin MD [facility] CPT-40033 Level 3 Est. Patient 15:22:03 AD TERMINAL MAKEUP OPERATOR Thomas reynolds DO [facility] CPT-34505 Level 3 Est. Patient 13:34:17 AD TERMINAL MAKEUP OPERATOR Checo Conklin MD [facility] CPT-69231 Level 3 Est. Patient 12:29:32 CDT Dangelo arroyo MD [facility] CPT-05251 Level 3 Est. Patient 16:53:02 CDT Checo Conklin MD [facility] CPT-67537 Level 3 Est. Patient 16:37:13 CDT Checo Conklin MD [facility] CPT-31321 Level 3 Est. Patient 16:16:59 CDT Paul Hamlin MD [facility] CPT-54814 Level 3 Est. Patient 14:20:13 CDT Dangelo arroyo MD [facility] CPT-01889 Level 4 Est. Patient 11:29:33 CDT Checo Conklin MD [facility] CPT-83634 Level 3 Est. Patient 17:08:31 CDT Checo Conklin MD [facility] CPT-13463 Level 3 Est. Patient 16:50:42 AD TERMINAL MAKEUP OPERATOR Checo Conklin MD [facility] CPT-79862 Level 4 Est. Patient 09:26:08 AD TERMINAL MAKEUP OPERATOR Checo Conklin MD [facility] CPT-50217 Level 3 Est. Patient 11:37:10 CDT Checo Conklin MD [facility] CPT-29431 Level 4 Est. Patient 14:07:38 CDT Cheoc Conklin MD [facility] CPT-10019 Level 3 Est. Patient 09:54:41 CDT Checo Conklin MD [facility] CPT-67928 Level 3 Est. Patient 11:10:54 CDT Paul Hamlin MD [facility] CPT-18524 Level 3 Est. Patient 14:16:56 AD TERMINAL MAKEUP OPERATOR Checo Conklin MD [facility] CPT-48851 Level 3 Est. Patient 11:04:11 AD TERMINAL MAKEUP OPERATOR Checo Conklin MD [facility] CPT-94192 Level 3 Est. Patient 17:09:26 CDT Dangelo arroyo MD [facility] CPT-47728 Level 3 Est. Patient 16:54:37 CDT Checo Conklin MD [facility] Procedures Code Procedure Name Date Entry Date Standard Desc ription CPT-OV Office Visit 11:31:28 CDT CPT-57453 Tubersol 09:39:29 CDT CPT-J2550 Phenergan 25 mg (Promethazine) 13:59:02 AD TERMINAL MAKEUP OPERATOR CPT-J1885 Toradol 60 mg (Ketorolac) 13:59:02 AD TERMINAL MAKEUP OPERATOR 2012
--- OUTSIDE RECORDS SUMMARY | 2019-09-29 02:00 | XMS REPORT | Clinical Summary ---
Author Author Admin, Bethany Gonzales Organization [employer] Address Unknown Phone Unavailable Allergies, Adverse Reactions, [...] Abdominal pain, generalized 789.07 Active Efren Medel [employer] COM[employer]ER Abdominal pain, generalized Nausea 787.02 Active Efren [...] TABLET 1.5 po qd PAR OXETINE HCL 28897860140 Active Checo Conklin MD Active FLUTICASONE PROPIONATE 50 MCG/ACT NASAL SUSPENSION 2 s prays/nostril qd PRN Congestion/Allergies FLUTICASONE PROPIONATE 5854613390 9 No Longer Active Checo Conklin MD Active AMOXICILLIN 500 MG ORAL CAPSULE 2 po BID x 10 days 201 01/15/27 AMOXICILLIN 04920594338 No Longer Active Checo Conklin MD Activ e MIRALAX ORAL POWDER 8.5 to 17g po qd PRN Constipation POLYETHYLENE GLYCOL 3350 67339678049 Active Checo Conklin MD Active CLARITIN 10 MG ORAL TABLET 1 tablet by mouth daily as needed for allergies LORATADINE 90153075904 No Longer Active Checo Ortiz MD Active BACTRIM DS 800-160 MG ORAL TABLET 1 tab by mouth twice daily 201 12/19/26 TRIMETHOPRIM-SULFAMETHOXAZOLE 26733281589 No Longer Active Ragini Carrillo MD Active DIFLUCAN 150 MG ORAL TABLET 1 tablet by mouth qod 2015 FLUCONAZOLE 78405776386 No Longer Active Efren Medel [employer]ER [employer]ER Act mike AZITHROMYCIN 250 MG ORAL TABLET 2 po qd x 1 day, then 1 po q d x 4 days AZITHROMYCIN 55686389040 No Longer Active Efren flores [employer] 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 DEXMETHYLPHENIDATE HCL 73732283220 Active Checo Conklin MD Active MAGNESIUM CITRATE 1.745 GM/30ML ORAL SOLUTION 150ml po BID P RN Constipation MAGNESIUM CITRATE 54680712102 No Longer Active Checo Conklin MD Active BACTROBAN 2 % EXTERNAL CREAM Apply to affected area BID for up to 10 days MUPIROCIN CALCIUM 25783050669 No Longer Active Checo Conklin MD Active HYDROCODONE-ACETAMINOPHEN 5-325 MG ORAL TABLET 1 tab b y mouth every 6 hours as needed HYDROCODONE-ACETAMINOPHEN 08901573884 No Longer Active Checo Conklin MD Active IBUPROFEN 800 MG ORAL TABLET 1 tab every 8 hours with food 03/20 IBUPROFEN 10379120098 No Longer Active Checo Conklin MD Active DIFLUCAN 150 MG ORAL TABLET 1 tablet by mouth if neede d, hold until symptoms start FLUCONAZOLE 21820045528 No Longer Active Checo Conklin MD Active BACTRIM DS 800-160 MG ORAL TABLET 1 tab by mouth twice daily 201 11/23/03 TRIMETHOPRIM-SULFAMETHOXAZOLE 04136838491 No Longer Active Bonnie Méndez LPN Active HYDROCODONE-ACETAMINOPHEN 5-325 MG ORAL TABLET 0.5 to 1 tab by mouth every 6 hours as needed HYDROCODONE-ACETAMINOPHEN 16045829194 No Longer Active Checo Conklin MD Active ONDANSETRON 8 MG ORAL TABLET DISINTEGRATING place one tablet on tongue and allow to dissolve every 6 hours as needed for vomitting ONDANSETRON 64242184024 No Longer Active Checo Conklin MD Activ e COMPRO 25 MG RECTAL SUPPOSITORY insert or apply one garza ppository rectally as directed every 12 hours as needed for nausea PROCHLORPERAZINE 52851056862 No Longer Active Checo Conklin MD A ctive SUMATRIPTAN SUCCINATE 100 MG ORAL TABLET Take one PRN for migran e SUMATRIPTAN SUCCINATE 82216879995 No Longer Active Checo Conklin MD Active TRAVEL SICKNESS 25 MG ORAL TABLET CHEWABLE chew and sw allow one tablet every 6 hours as needed MECLIZINE HCL 92335174891 No Longer A ctive Checo Conklin MD Active BUPROPION HCL ER (SR) 100 MG ORAL TABLET EXTENDED RELE ASE 12 HOUR take one tablet by mouth one time daily for one week then take 1 two times daily BUPROPION HCL 46783364144 No Longer Active Checo gallagher MD Active TERBINAFINE HCL 250 MG ORAL TABLET take one table PO one time da moises TERBINAFINE HCL 31689985703 No Longer Active Checo Conklin MD Active METOCLOPRAMIDE HCL 10 MG ORAL TABLET take one PO tid PRN nausea METOCLOPRAMIDE HCL 34844156280 No Longer Active Checo Conklin MD Active DICLOFENAC SODIUM 75 MG ORAL TABLET DELAYED RELEASE 1 tablet by mouth twice daily PRN Knee pain DICLOFENAC SODIUM 01651111715 No Longer Active Checo Conklin MD Active LAMISIL 250 MG ORAL TABLET 1 po qd TERBINAFI NE HCL 22852010698 No Longer Active Checo Conklin MD Active REGLAN 10 MG ORAL TABLET 1 po TID PRN Nausea 3 METOCLOPRAMIDE HCL 21074376746 No Longer Active Checo Conklin MD Active CELEXA 20 MG ORAL TABLET 1 tablet by mouth daily 09/26 CITALOPRAM HYDROBROMIDE 53412969319 No Longer Active Checo Conklin MD Active AZITHROMYCIN 250 MG ORAL TABLET 2 po qd x 1 day, then 1 po q d x 4 days AZITHROMYCIN 69042486508 No Longer Active Checo Ortiz MD Active HYDROCODONE-ACETAMINOPHEN 5-325 MG ORAL TABLET 1 po q 6hr PRN Pa in HYDROCODONE-ACETAMINOPHEN 94264383400 No Longer Active Lenora Conklin MD Active PHENAZOPYRIDINE HCL 200 MG ORAL TABLET take 1 tab po TID for bladder pain PHENAZOPYRIDINE HCL 13199627030 No Longer Active Joe Conklin MD Active CIPRO 500 MG ORAL TABLET 1 tablet by mouth twice daily CIPROFLOXACIN HCL 00650034351 No Longer Active Dangelo Rangel MD Active HYDROCODONE-ACETAMINOPHEN 5-325 MG ORAL TABLET 1/2 to 1 po q 4 hours prn cough HYDROCODONE-ACETAMINOPHEN 67488111134 No Longer Activ e Dangelo Rangel MD Active BACTRIM DS 800-160 MG ORAL TABLET 1 po BID x 7 days 29/04/10 SULFAMETHOXAZOLE-TRIMETHOPRIM 95213186103 No Longer Active Checo Conklin MD Active PREDNISONE 20 MG ORAL TABLET 2 tabs daily for 3 days, 1 tab daily for 3 days, 1/2 tab daily for 2 days PREDNISONE 04333057342 No Longer Active Checo Conklin MD Active TRIAMCINOLONE ACETONIDE 0.1 % EXTERNAL OINTMENT Apply to affected areas TID for up to 2 weeks TRIAMCINOLONE ACETONIDE 44465914642 No Longer Active Checo Conklin MD Active CEFDINIR 300 MG ORAL CAPSULE by mouth twice a day 2013 CEFDINIR 90739907806 No Longer Active Dangelo Rangel MD Acti ve BUPROPION HCL ER (SMOKING DET) 150 MG ORAL TABLET EXTE NDED RELEASE 12 HOUR 1 a day for 1 week then 1 twice a day BUPROPION HCL (SMOKING DETER) 84892966530 No Longer Active Checo Conklin MD Active SIMVASTATIN 20 MG ORAL TABLET 1 po qd SIMVASTAT IN 88214094512 Active Checo Conklin MD Active CHANTIX STARTING MONTH KARTHIK 0.5 MG X 11 & 1 MG X 42 ORA L TABLET 0.5mg daily for 3 days, then 0.5mg BID for 4 days, then 1mg BID VARENICLINE TARTRATE 07266801829 No Longer Active Checo Conklin MD Activ e XANAX 0.5 MG ORAL TABLET 1 po BID PRN anxiety A LPRAZOLAM 79641533752 Active Checo Conklin MD Active CONCERTA 18 MG ORAL TABLET EXTENDED RELEASE 1 po q a.m. METHYLPHENIDATE HCL 71387192429 No Longer Active Checo Conklin MD Active AMBIEN 5 MG ORAL TABLET 1 po qHS PRN Insomnia Z OLPIDEM TARTRATE 82491425525 Active Checo Conklin MD Active TRAZODONE HCL 100 MG ORAL TABLET 0.5 to 1 po qHS PRN Insomnia 20 30/07/08 TRAZODONE HCL 77635770581 No Longer Active Checo Conklin MD Active FIORICET 325-50-40 MG TAB 1 tablet by mouth four times daily as needed FGEWXPOXIISFV-DRRK-[id number] 90701479747 No Longer Active Checo Conklin MD Active PHENERGAN CREAM* 25mg applied to wrist q6hr PRN Nausea PHENERGAN CREAM* No Longer Active Checo Gonzales ctive FLONASE 50 MCG/ACT NASAL SUSPENSION 1 spray each nostril am and hs FLUTICASONE PROPIONATE 16763925384 No Longer Active Checo Conklin MD Active ANTIPYRINE-BENZOCAINE 5.4-1.4 % OTIC SOLUTION 1-2 drops in affec yohannes ear BENZOCAINE-ANTIPYRINE 76117611674 No Longer Active Checo Conklin MD Active CEFDINIR 300 MG ORAL CAPSULE 1 po bid CEFDINIR 69941270185 No Longer Active Checo Conklin MD Active PREDNISONE 20 MG ORAL TABLET 2 tabs daily for 3 days, 1 tab daily for 3 days, 1/2 tab daily for 2 days PREDNISONE 69913029680 No Longer Active Checo Conklin MD Active AZITHROMYCIN 250 MG ORAL TABLET 2 po qd x 1 day, then 1 po q d x 4 days AZITHROMYCIN 25404707287 No Longer Active Checo Ortiz MD Active PREDNISONE 20 MG ORAL TABLET 2 tabs daily for 3 days, 1 tab daily for 3 days, 1/2 tab daily for 2 days PREDNISONE 32765474489 No Longer Active Checo Conklin MD Active ZITHROMAX Z-KARTHIK 250 MG ORAL TABLET 2 today, then 1 daily for 4 d ays AZITHROMYCIN 39625325212 No Longer Active Paul Hamlin MD Active FOCALIN XR 10 MG ORAL CAPSULE EXTENDED RELEASE 24 HOUR 1 po q a. m. DEXMETHYLPHENIDATE HCL 71200421377 No Longer Active Paul Hamlin MD Active PERCOCET 10-325 MG ORAL TABLET 1 tablet every 6 hours as needed for pain OXYCODONE-ACETAMINOPHEN 00869263572 No Longer Active Paul Hamlin MD Active LORTAB 5-500 MG ORAL TABLET 1/2 to 1 tablet by mouth e very 4 hours as needed for pain HYDROCODONE-ACETAMINOPHEN 90775652257 No Longer Active Checo Conklin MD Active FOCALIN XR 15 MG ORAL CAPSULE EXTENDED RELEASE 24 HOUR 1 po q a. m. DEXMETHYLPHENIDATE HCL 59057761852 No Longer Active Checo Conklin MD Active ZOFRAN ODT 4 MG ORAL TABLET DISINTEGRATING 1 po q6hr PRN Nausea ONDANSETRON 41566278156 No Longer Active Checo Conklin MD Active PERCOCET 5-325 MG ORAL TABLET 1 tablet by mouth every 6 hour s as needed OXYCODONE-ACETAMINOPHEN 01610837779 No Longer Active Checo Conklin MD Active PYRIDIUM 200 MG ORAL TABLET take 1 tab po TID prn urinary pain. PHENAZOPYRIDINE HCL 23605847666 No Longer Active Checo Joshua Active FLUCONAZOLE 150 MG ORAL TABLET take 1 tab po qday once FLUCONAZOLE 04185295240 No Longer Active Dangelo Rangel MD Acti ve CIPRO 500 MG ORAL TABLET 1 tablet by mouth twice daily CIPROFLOXACIN HCL 43113973256 No Longer Active Dangelo Rangel MD Active PYRIDIUM 200 MG ORAL TABLET take 1 tab po TID prn urinary pain. PYRIDIUM 200 MG ORAL TABLET 6847442 PHENAZOPYRIDINE HCL Inactive PERCOCET 5-325 MG ORAL TABLET 1 tablet by mouth every 6 hour s as needed PERCOCET 5-325 MG ORAL TABLET 5747212 OXYCODONE-ACETAMINOPHEN Inactive ZOFRAN ODT 4 MG ORAL TABLET DISINTEGRATING 1 po q6hr PRN Nausea ZOFRAN ODT 4 MG ORAL TABLET DISINTEGRATING 408088 ONDAN SETRON Inactive FOCALIN XR 15 MG ORAL CAPSULE EXTENDED RELEASE 24 HOUR 1 po q a. m. FOCALIN XR 15 MG ORAL CAPSULE EXTENDED RELEASE 24 HOUR DEXMETHYLPHENIDATE HCL Inactive LORTAB 5-500 MG ORAL TABLET 1/2 to 1 tablet by mouth e very 4 hours as needed for pain LORTAB 5-500 MG ORAL TABLET 073939 HYDROCODONE-ACETAMINOPHEN Inactive PERCOCET 10-325 MG ORAL TABLET 1 tablet every 6 hours as needed for pain PERCOCET 10-325 MG ORAL TABLET 1942439 OXYCODONE-ACETAMI NOPHEN Inactive FOCALIN XR 10 MG ORAL CAPSULE EXTENDED RELEASE 24 HOUR 1 po q a. m. FOCALIN XR 10 MG ORAL CAPSULE EXTENDED RELEASE 24 HOUR DEXMETHYLPHENIDATE HCL Inactive CEFDINIR 300 MG ORAL CAPSULE 1 po bid CEFDINI R 300 MG ORAL CAPSULE 630240 CEFDINIR Inactive ANTIPYRINE-BENZOCAINE 5.4-1.4 % OTIC SOLUTION 1-2 drops in affec yohannes ear ANTIPYRINE-BENZOCAINE 5.4-1.4 % OTIC SOLUTION 713179 BENZOCAINE-ANTIPYRINE Inactive FLONASE 50 MCG/ACT NASAL SUSPENSION 1 spray each nostril am and hs FLONASE 50 MCG/ACT NASAL SUSPENSION 5613797 FLUTICASONE PROPIONATE I nactive PHENERGAN CREAM* 25mg applied to wrist q6hr PRN Nausea PHENERGAN CREAM* Inactive FIORICET 325-50-40 MG TAB 1 tablet by mouth four times daily as needed FIORICET 325-50-40 MG TAB ACETAMINOPHEN-C AFF-BUTALBITAL Inactive TRAZODONE HCL 100 MG ORAL TABLET 0.5 to 1 po qHS PRN Insomnia 20 30/07/08 TRAZODONE HCL 100 MG ORAL TABLET 012814 TRAZODONE HCL Inactive CONCERTA 18 MG ORAL [...] cough HYDROCODONE-ACETAMINOPHEN 5-325 MG ORAL TABLET 8 74877 HYDROCODONE-ACETAMINOPHEN Inactive PHENAZOPYRIDINE HCL 200 MG ORAL TABLET take 1 tab po TID for bladder pain PHENAZOPYRIDINE HCL 200 MG ORAL TABLET 0698458 PHENAZOPYRIDINE HCL Inactive HYDROCODONE-ACETAMINOPHEN 5-325 MG ORAL TABLET 1 po q 6hr PRN Pa in HYDROCODONE-ACETAMINOPHEN 5-325 MG ORAL TABLET 082722 HYDROCODONE-ACETAMINOPHEN Inactive CELEXA 20 MG ORAL TABLET 1 tablet by mouth daily 09/26 CELEXA 20 MG ORAL TABLET 406635 CITALOPRAM HYDROBROMIDE Inactive REGLAN 10 MG ORAL TABLET 1 po TID PRN Nausea 3 REGLAN 10 MG ORAL TABLET 309727 METOCLOPRAMIDE HCL Inactive LAMISIL 250 MG ORAL TABLET 1 po qd L AMISIL 250 MG ORAL TABLET 709630 TERBINAFINE HCL Inactive DICLOFENAC SODIUM 75 MG ORAL TABLET DELAYED RELEASE 1 tablet by mouth twice daily PRN Knee pain DICLOFENAC SODIUM 75 MG ORAL TABLET DELAYED RELEASE 526903 DICLOFENAC SODIUM Inactive METOCLOPRAMIDE HCL 10 MG ORAL TABLET take one PO tid PRN nausea METOCLOPRAMIDE HCL 10 MG ORAL TABLET 964349 METOCLOPRAM ZACH HCL Inactive TERBINAFINE HCL 250 MG ORAL TABLET take one table PO one time da moises TERBINAFINE HCL 250 MG ORAL TABLET 044103 TERBINAFINE H CL Inactive BUPROPION HCL ER [...] SICKNESS 25 M G ORAL TABLET CHEWABLE 738851 MECLIZINE HCL Inactive SUMATRIPTAN SUCCINATE 100 MG ORAL TABLET Take one PRN for migran e SUMATRIPTAN SUCCINATE 100 MG ORAL TABLET 125672 SUMATRIPTAN SUCCINATE Inactive COMPRO 25 MG RECTAL SUPPOSITORY insert or apply one garza ppository rectally as directed every 12 hours as needed for nausea COMPRO 25 MG RECTAL SUPPOSITORY 369391 PROCHLORPERAZINE Inactive ONDANSETRON 8 MG ORAL TABLET DISINTEGRATING place one tablet on tongue and allow to dissolve every 6 hours as needed for vomitting ONDANSETRON 8 MG ORAL TABLET DISINTEGRATING 487280 ONDANSETRON Inactive HYDROCODONE-ACETAMINOPHEN 5-325 MG ORAL TABLET 0.5 to 1 tab by mouth every 6 hours as needed HYDROCODONE-ACETAMIN OPHEN 5-325 MG ORAL TABLET 767121 HYDROCODONE-ACETAMINOPHEN Inactive BACTRIM DS 800-160 MG ORAL TABLET 1 tab by mouth twice daily 201 11/23/03 BACTRIM DS 800-160 MG ORAL TABLET 114982 TRIMETHOPRIM-SULFAMETHOXAZOLE Inactive DIFLUCAN 150 MG ORAL TABLET 1 tablet by mouth if neede d, hold until symptoms start DIFLUCAN 150 MG ORAL TABLET 119359 FLUCONAZ OLE Inactive IBUPROFEN 800 MG ORAL TABLET 1 tab every 8 hours with food 03/20 IBUPROFEN 800 MG ORAL TABLET 255456 IBUPROFEN [place] ctive HYDROCODONE-ACETAMINOPHEN 5-325 MG ORAL TABLET 1 tab b y mouth every 6 hours as needed HYDROCODONE-ACETAMINOPHEN 5-325 MG ORAL TABLET 503356 HYDROCODONE-ACETAMINOPHEN Inactive BACTROBAN 2 % EXTERNAL CREAM Apply to affected area BID for up to 10 days BACTROBAN 2 % EXTERNAL CREAM 141470 MUPIROCIN CA LCIUM Inactive MAGNESIUM CITRATE 1.745 GM/30ML ORAL SOLUTION 150ml po BID P RN Constipation MAGNESIUM CITRATE 1.745 GM/30ML ORAL SOLUTION 10 15115 MAGNESIUM CITRATE Inactive DIFLUCAN 150 MG ORAL TABLET 1 tablet by mouth qod 2015 DIFLUCAN 150 MG ORAL TABLET 959742 FLUCONAZOLE Inactive BACTRIM DS 800-160 MG ORAL TABLET 1 tab by mouth twice daily 201 12/19/26 BACTRIM DS 800-160 MG ORAL TABLET 780647 TRIMETHOPRIM-SULFAMETHOXAZOLE Inactive CLARITIN 10 MG ORAL TABLET 1 tablet by mouth daily as needed for allergies CLARITIN 10 MG ORAL TABLET 108104 LORATADINE I nactive FLUTICASONE PROPIONATE 50 MCG/ACT NASAL SUSPENSION 2 s prays/nostril qd PRN Congestion/Allergies FLUTICASONE PROPION ATE 50 MCG/ACT NASAL SUSPENSION 8867524 FLUTICASONE PROPIONATE Inactive CIPRO 500 MG ORAL TABLET 1 tablet by mouth twice daily CIPRO 500 MG ORAL TABLET 734467 CIPROFLOXACIN HCL Inactive FLUCONAZOLE 150 MG ORAL TABLET take 1 tab po qday once FLUCONAZOLE 150 MG ORAL TABLET 135278 FLUCONAZOLE Inactive ZITHROMAX Z-KARTHIK 250 MG ORAL TABLET 2 today, then 1 daily for 4 d ays ZITHROMAX Z-KARTHIK 250 MG ORAL TABLET 164281 AZITHROMYCIN Inactive PREDNISONE 20 MG ORAL TABLET 2 tabs daily for 3 days, 1 tab daily for 3 days, 1/2 tab daily for 2 days PREDNISONE 20 MG ORAL T ABLET 753186 PREDNISONE Inactive AZITHROMYCIN 250 MG ORAL TABLET 2 po qd x 1 day, then 1 po q d x 4 days AZITHROMYCIN 250 MG ORAL TABLET 659568 AZITHROMY SPARKLE Inactive PREDNISONE 20 MG ORAL TABLET 2 tabs daily for 3 days, 1 tab daily for 3 days, 1/2 tab daily for 2 days PREDNISONE 20 MG ORAL TABLET 578030 PREDNISONE Inactive CEFDINIR 300 MG ORAL CAPSULE by mouth twice a day 2013 CEFDINIR 300 MG ORAL CAPSULE 041226 CEFDINIR Inactive TRIAMCINOLONE ACETONIDE 0.1 % EXTERNAL OINTMENT Apply to affected areas TID for up to 2 weeks TRIAMCINOLONE ACETON ZACH 0.1 % EXTERNAL OINTMENT 6081746 TRIAMCINOLONE ACETONIDE Inactive PREDNISONE 20 MG ORAL TABLET 2 tabs daily for 3 days, 1 tab daily for 3 days, 1/2 tab daily for 2 days PREDNISONE 20 MG ORAL T ABLET 200870 PREDNISONE Inactive BACTRIM DS 800-160 MG ORAL TABLET 1 po BID x 7 days 29/04/10 BACTRIM DS 800-160 MG ORAL TABLET 606647 SULFAMETHOXAZOLE-TRIMETHOP RIM Inactive CIPRO 500 MG ORAL TABLET 1 tablet by mouth twice daily CIPRO 500 MG ORAL TABLET 342048 CIPROFLOXACIN HCL Inactive AZITHROMYCIN 250 MG ORAL TABLET 2 po qd x 1 day, then 1 po q d x 4 days AZITHROMYCIN 250 MG ORAL TABLET 800706 AZITHROMY SPARKLE Inactive FLAGYL 500 MG ORAL TABLET 1 tablet by mouth bid 04/13 FLAGYL 500 MG ORAL TABLET 691015 METRONIDAZOLE Inactive AZITHROMYCIN 250 MG ORAL TABLET 2 po qd x 1 day, then 1 po q d x 4 days AZITHROMYCIN 250 MG ORAL TABLET 872649 AZITHROMY SPARKLE Inactive AMOXICILLIN 500 MG ORAL CAPSULE 2 po BID x 10 days 201 01/15/27 AMOXICILLIN 500 MG ORAL CAPSULE 872679 AMOXICILLIN Inactive Immunizations Vaccine Administration Date Value [...] PANEL - Chemistry cholesterol, serum 192 mg/dL 077-645 9101/02/20 HDL cholesterol, serum 31 mg/dL > OR [...] 11 .0-15.0 platelet count 218 THOUSAND/UL 10*3/mm3 954-405 6314/02/20 mean platelet volume 9.7 fL 7.5-12.5 Encounters Code Encounter Date Provider Facility CPT-23848 Level 3 Est. Patient 11:24:55 [employer]CH[employer]ISE PRESENTATION ASSOCIATE Efren almendarez APRN [facility] CPT-87867 Level 3 Est. Patient 13:05:44 CDT Paul Hamlin MD [facility] CPT-44366 Level 3 Est. Patient 11:29:55 CDT Checo Conklin MD [facility] CPT-35268 Level 4 Est. Patient 11:08:12 [employer]ISE PRESENTATION ASSOCIATE Checo Conklin MD [facility] CPT-47770 Level 4 Est. Patient 16:06:48 MERCHANDISE PRESENTATION ASSOCIATE Checo Conklin MD [facility] CPT-29033 Level 3 Est. Patient 09:11:49 CDT Efren Nicolas almendarez [facility] CPT-72944 Level 2 Est. Patient 19:53:27 CDT Tanner hill MD [facility] Unit-93689 Level 3 Est. Patient 09:15:34 CDT Efren Nicolas sagastumerico [facility] CPT-37530 Level 3 Est. Patient 11:28:51 MERCHANDISE PRESENTATION ASSOCIATE Efren almendarez [facility] CPT-98411 Level 4 Est. Patient 13:55:46 MERCHANDISE PRESENTATION ASSOCIATE Checo Conklin MD [facility] CPT-13437 Level 4 Est. Patient 17:10:53 CDT Checo Conklin MD [facility] CPT-10763 Level 3 Est. Patient 15:56:22 CDT Checo Conklin MD [facility] CPT-09964 Level 3 Est. Patient 15:29:07 CDT Checo Conklin MD [facility] CPT-91624 Level 3 Est. Patient 14:38:41 CDT Checo Conklin MD [facility] CPT-23528 Level 3 Est. Patient 15:22:03 MERCH[employer]ISE PRESENTATION ASSOCIATE Thomas reynolds DO [facility] CPT-34485 Level 3 Est. Patient 13:34:17 MERCHANDISE PRESENTATION ASSOCIATE Checo Conklin MD [facility] CPT-21000 Level 3 Est. Patient 12:29:32 CDT Dangelo arroyo MD [facility] CPT-82314 Level 3 Est. Patient 16:53:02 CDT Checo Conkiln MD [facility] CPT-58186 Level 3 Est. Patient 16:37:13 CDT Checo Conklin MD [facility] CPT-24791 Level 3 Est. Patient 16:16:59 CDT Paul Hamlin MD [facility] CPT-77115 Level 3 Est. Patient 14:20:13 CDT Dangelo arroyo MD [facility] CPT-59670 Level 4 Est. Patient 11:29:33 CDT Checo Conklin MD [facility] CPT-91358 Level 3 Est. Patient 17:08:31 CDT Checo Conklin MD [facility] CPT-31360 Level 3 Est. Patient 16:50:42 MERCHANDISE PRESENTATION ASSOCIATE Checo Conklin MD [facility] CPT-33485 Level 4 Est. Patient 09:26:08 MERCHANDISE PRESENTATION ASSOCIATE Checo Conklin MD [facility] CPT-27954 Level 3 Est. Patient 11:37:10 CDT Checo Conklin MD [facility] CPT-59828 Level 4 Est. Patient 14:07:38 CDT Checo Conklin MD [facility] CPT-18398 Level 3 Est. Patient 09:54:41 CDT Checo Conklin MD [facility] CPT-69003 Level 3 Est. Patient 11:10:54 CDT Paul Hamlin MD [facility] CPT-13240 Level 3 Est. Patient 14:16:56 MERCHANDISE PRESENTATION ASSOCIATE Checo Conklin MD [facility] CPT-59183 Level 3 Est. Patient 11:04:11 MERCHANDISE PRESENTATION ASSOCIATE Checo Conklin MD [facility] CPT-87761 Level 3 Est. Patient 17:09:26 CDT Dangelo arroyo MD [facility] CPT-34671 Level 3 Est. Patient 16:54:37 CDT Checo Conklin MD [facility] Procedures Code Procedure Name Date Entry Date Standard Desc ription CPT-35432 Abd compl w upright - XRAY USE ONLY 1 1:36:54 MERCHANDISE PRESENTATION ASSOCIATE CPT-00106 UA w micro - LAB USE ONLY 17:06:46 CDT 2015 CPT-00805 [facility] Qual - LAB USE ONLY 17:06:46 CDT 05/06 CPT-13525 CMP - LAB USE ONLY 17:06:46 CDT CPT-27322 CBC with Diff - LAB USE ONLY 17:06:45 CDT 2 CPT-90940 Venipuncture Draw Fee 17:06:45 CDT CPT-LR Lesion Removal 19:53:27 CDT CPT-OV Office Visit 11:31:28 CDT CPT-84592 Tubersol 09:39:29 CDT CPT-J2550 Phenergan 25 mg (Promethazine) 13:59:02 MERCHANDISE PRESENTATION ASSOCIATE CPT-J1885 Toradol 60 mg (Ketorolac) 13:59:02 MERCHANDISE PRESENTATION ASSOCIATE 2012
--- OUTSIDE RECORDS SUMMARY | 2019-09-29 02:00 | XMS REPORT | Clinical Summary ---
Author Author Admin, Bethany Ayala [facility] Address Unknown Phone Unavailable Allergies, Adverse Reactions, [...] MD Hypoglycemia, unspecified Insomnia 780.52 Resolved Checo oCnklin MD Insomnia, unspecified Hyperlipidemia 272.4 Active Checo [...] Joshua Breast mass, right ICD-611.72 Inactive Checo Conklni MD Mastalgia ICD-611.71 Inactive Checo Joshua Sinusitis [...] po BID x 10 days 09/12 AMOXICILLIN 35555755177 Active Checo Conklin MD Active PAROXETINE HCL 20 MG ORAL TABS 0.5 po qd 6 days, then 1 po qd 09/02 PAROXETINE HCL 51580910474 Active Checo Conklin MD Active FLUTICASONE PROPIONATE 50 MCG/ACT NASAL SUSP 2 sprays/ nostril qd PRN Congestion/Allergies FLUTICASONE PROPIONATE 52312425596 Ac tive Checo Conklin MD Active MIRALAX ORAL POWD 8.5 to 17g po qd PRN Constipation POLYETHYLENE GLYCOL 3350 92324552762 Active Checo Conklin MD Active CLARITIN 10 MG TAB 1 tablet by mouth daily as needed for allergi es LORATADINE 97612495536 No Longer Active Checo Conklin MD Active BACTRIM DS 800-160 MG TAB 1 tab by mouth twice daily 2 TRIMETHOPRIM-SULFAMETHOXAZOLE 32483159808 No Longer Active Tanner Carrillo MD Active DIFLUCAN 150 MG TAB 1 tablet by mouth qod FLUCO NAZOLE 95647265297 No Longer Active Efren Medel APRN Active AZITHROMYCIN 250 MG TABS 2 po qd x 1 day, then 1 po qd x 4 days AZITHROMYCIN 29816263104 No Longer Active Efren Medel APRN Active FLAGYL 500 MG TAB 1 tablet by mouth bid METRONI DAZOLE 11148554433 No Longer Active Checo Conklin MD Active FOCALIN XR 10 MG ORAL [id number] 1 po q a.m. DEX METHYLPHENIDATE HCL 27902644277 Active Checo Conklin MD Active MAGNESIUM CITRATE 1.745 GM/30ML ORAL SOLN 150ml po BID PRN C onstipation MAGNESIUM CITRATE 22186787764 No Longer Active Checo Conklin MD Active BACTROBAN 2 % CREAM Apply to affected area BID for up to 10 days MUPIROCIN CALCIUM 63343193219 No Longer Active Checo Conklin MD Active HYDROCODONE-ACETAMINOPHEN 5-325 MG TABS 1 tab by mouth every 6 hours as needed HYDROCODONE-ACETAMINOPHEN 73045320450 No Longer Activ e Checo Conklin MD Active IBUPROFEN 800 MG TABS 1 tab every 8 hours with food 20 31/03/21 IBUPROFEN 00765526238 No Longer Active Checo Conklin MD Activ e DIFLUCAN 150 MG TAB 1 tablet by mouth if needed, hold until symptoms start FLUCONAZOLE 16633952978 No Longer Active Checo Ortiz MD Active BACTRIM DS 800-160 MG TAB 1 tab by mouth twice daily 2 TRIMETHOPRIM-SULFAMETHOXAZOLE 79918564531 No Longer Active Corry leong LPN Active HYDROCODONE-ACETAMINOPHEN 5-325 MG TABS 0.5 to 1 tab b y mouth every 6 hours as needed HYDROCODONE-ACETAMINOPHEN 89440359212 No Longer Active Checo Conklin MD Active ONDANSETRON [address] one tablet on tongue and allow to dissolve every 6 hours as needed for vomitting ONDANSETRO N 54409849619 No Longer Active Checo Conklin MD Active COMPRO 25 MG RECTAL SUPP insert or apply one supposit ory rectally as directed every 12 hours as needed for nausea PROCHLORPERA ZINE 89610657108 No Longer Active Checo Conklin MD Active SUMATRIPTAN SUCCINATE 100 MG ORAL TABS Take one PRN for migrane SUMATRIPTAN SUCCINATE 72970049247 No Longer Active Checo Conklin MD Active TRAVEL SICKNESS 25 MG ORAL CHEW chew and swallow one t ablet every 6 hours as needed MECLIZINE HCL 61457241394 No Longer Active Joe Conklin MD Active BUPROPION HCL ER (SR) 100 MG ORAL [id number] take one t ablet by mouth one time daily for one week then take 1 two times daily BUPROPION HCL 78892399313 No Longer Active Checo Conklin MD Activ e TERBINAFINE HCL 250 MG ORAL TABS take one table PO one time abran y TERBINAFINE HCL 98075322404 No Longer Active Checo Conklin MD Active METOCLOPRAMIDE HCL 10 MG ORAL TABS take one PO tid PRN nausea 20 29/12/14 METOCLOPRAMIDE HCL 87467916648 No Longer Active Checo Conklin MD Active DICLOFENAC SODIUM 75 MG TBEC 1 tablet by mouth twice daily P RN Knee pain DICLOFENAC SODIUM 27148383047 No Longer Active Checo Conklin MD Active LAMISIL 250 MG TAB 1 po qd TERBINAFINE HCL 548 57852578 No Longer Active Checo Conklin MD Active REGLAN 10 MG TAB 1 po TID PRN Nausea METOCLOPRA MIDE HCL 36298246581 No Longer Active Checo Conklin MD Active CELEXA 20 MG TABS 1 tablet by mouth daily CITALOPRAM HYDROBROMIDE 76513815226 No Longer Active Checo Conklin MD Activ e AZITHROMYCIN 250 MG TABS 2 po qd x 1 day, then 1 po qd x 4 days AZITHROMYCIN 68764207226 No Longer Active Checo Conklin MD Active HYDROCODONE-ACETAMINOPHEN 5-325 MG TABS 1 po q 6hr PRN Pain 2013 HYDROCODONE-ACETAMINOPHEN 02437081748 No Longer Active Lenora Conklin MD Active PHENAZOPYRIDINE HCL 200 MG TABS take 1 tab po TID for bladder pa in PHENAZOPYRIDINE HCL 23369455052 No Longer Active Checo Joshua Active CIPRO 500 MG TAB 1 tablet by mouth twice daily CIPROFLOXACIN HCL 01913097380 No Longer Active Dangelo Rangel MD Active HYDROCODONE-ACETAMINOPHEN 5-325 MG TABS 1/2 to 1 po q 4 hour s prn cough HYDROCODONE-ACETAMINOPHEN 62618816574 No Longer Activ e Dangelo Rangel MD Active BACTRIM DS 800-160 MG TABS 1 po BID x 7 days 0 SULFAMETHOXAZOLE-TRIMETHOPRIM 33959728579 No Longer Active Checo Conklin MD Active PREDNISONE 20 MG TAB 2 tabs daily for 3 days, 1 t ab daily for 3 days, 1/2 tab daily for 2 days PREDNISONE 21450210315 No Longer Active Checo Conklin MD Active TRIAMCINOLONE ACETONIDE 0.1 % OINT Apply to affected a reas TID for up to 2 weeks TRIAMCINOLONE ACETONIDE 47777880467 No Longer A ctive Checo Conklin MD Active CEFDINIR 300 MG CAPS by mouth twice a day CEFDI JAZZY 60748438874 No Longer Active Dangelo Rangel MD Active BUPROPION HCL (SMOKING DETER) 150 MG [id number] 1 a day for 1 week then 1 twice a day BUPROPION HCL (SMOKING DETER) 22567601037 No Lo nger Active Checo Conklin MD Active SIMVASTATIN 20 MG TABS 1 po qd SIMVASTATIN 2981250747 5 Active Checo Conklin MD Active CHANTIX STARTING MONTH KARTHIK 0.5 MG X 11 & 1 MG X 42 TAB S 0.5mg daily for 3 days, then 0.5mg BID for 4 days, then 1mg BID VARENICLINE TARTRATE 59044374670 No Longer Active Checo Conklin MD Activ e XANAX 0.5 MG TABS 1 po BID PRN anxiety ALPRAZOLAM 65503124593 Active Checo Conklin MD Active CONCERTA 18 MG CR-TABS 1 po q a.m. METHYLPHENID ATE HCL 09129435431 No Longer Active Checo Conklin MD Active AMBIEN 5 MG TAB 1 po qHS PRN Insomnia ZOLPIDEM TARTRATE 27919955292 Active Checo Conklin MD Active TRAZODONE HCL 100 MG TAB 0.5 to 1 po qHS PRN Insomnia TRAZODONE HCL 75923711528 No Longer Active Checo Conklin MD Acti ve FIORICET 325-50-40 MG TAB 1 tablet by mouth four times daily as needed [id number] 01469262980 No Longer Active Checo Conklin MD Active PHENERGAN CREAM* 25mg applied to wrist q6hr PRN Nausea PHENERGAN CREAM* No Longer Active Checo Conklin MD A ctive FLONASE 50 MCG/ACT SUSP 1 spray each nostril am and hs FLUTICASONE PROPIONATE 02787835106 No Longer Active Checo Conklin MD Activ e ANTIPYRINE-BENZOCAINE 5.4-1.4 % SOLN 1-2 drops in affected ear BENZOCAINE-ANTIPYRINE 23332564019 No Longer Active Checo Conklin MD Active CEFDINIR 300 MG CAPS 1 po bid CEFDINIR 48773668 120 No Longer Active Checo Conklin MD Active PREDNISONE 20 MG TAB 2 tabs daily for 3 days, 1 t ab daily for 3 days, 1/2 tab daily for 2 days PREDNISONE 99788392968 No Longer Active Aracelis Conklin MD Active AZITHROMYCIN 250 MG TABS 2 po qd x 1 day, then 1 po qd x 4 days AZITHROMYCIN 59091482598 No Longer Active Checo Conklin MD Active PREDNISONE 20 MG TAB 2 tabs daily for 3 days, 1 t ab daily for 3 days, 1/2 tab daily for 2 days PREDNISONE 71639941322 No Longer Active Checo Conklin MD Active ZITHROMAX Z-KARTHIK 250 MG TABS 2 today, then 1 daily for 4 days 201 09/18/28 AZITHROMYCIN 60832878420 No Longer Active Paul Hamlin MD Active FOCALIN XR 10 MG [id number] 1 po q a.m. D EXMETHYLPHENIDATE HCL 14294559377 No Longer Active Paul Hamlin MD Activ e PERCOCET 10-325 MG TABS 1 tablet every 6 hours as needed for pain OXYCODONE-ACETAMINOPHEN 66379277792 No Longer Active Paul Hamlin MD Active LORTAB 5 5-500 MG TABS 1/2 to 1 tablet by mouth flaquito ry 4 hours as needed for pain HYDROCODONE-ACETAMINOPHEN 18072962622 No Longer Active Checo Conklin MD Active FOCALIN XR 15 MG [id number] 1 po q a.m. D EXMETHYLPHENIDATE HCL 35113618126 No Longer Active Checo Conklin MD Activ e ZOFRAN ODT 4 MG TBDP 1 po q6hr PRN Nausea ONDAN SETRON 60131985165 No Longer Active Checo Conklin MD Active PERCOCET 5-325 MG TABS 1 tablet by mouth every 6 hours as needed OXYCODONE-ACETAMINOPHEN 82350460977 No Longer Active Checo Conklin MD Active PYRIDIUM 200 MG TABS take 1 tab po TID prn urinary pain. 0 PHENAZOPYRIDINE HCL 52487926600 No Longer Active Checo Conklin MD Active FLUCONAZOLE 150 MG TABS take 1 tab po qday once 04/06 FLUCONAZOLE 78691444928 No Longer Active Dangelo Rangel MD Acti ve CIPRO 500 MG TAB 1 tablet by mouth twice daily CIPROFLOXACIN HCL 18839236404 No Longer Active Dangelo Rangel MD Active PYRIDIUM 200 MG TABS take 1 tab po TID prn urinary pain. 0 PYRIDIUM 200 MG TABS 3120901 PHENAZOPYRIDINE HCL Inactive PERCOCET 5-325 MG TABS 1 tablet by mouth every 6 hours as needed PERCOCET 5-325 MG TABS 3426169 OXYCODONE-ACETAMINOPHEN I nactive ZOFRAN ODT 4 MG TBDP 1 po q6hr PRN Nausea ZOFRAN ODT 4 MG TBDP 144855 ONDANSETRON Inactive FOCALIN XR 15 MG [id number] 1 po q a.m. F OCALIN XR 15 MG [id number] DEXMETHYLPHENIDATE HCL Inactive LORTAB 5 5-500 MG TABS 1/2 to 1 tablet by mouth flaquito ry 4 hours as needed for pain LORTAB 5 5-500 MG TABS HYDROCODONE-A CETAMINOPHEN Inactive PERCOCET 10-325 MG TABS 1 tablet every 6 hours as needed for pain PERCOCET 10-325 MG TABS 2784867 OXYCODONE-ACETAMINOPHEN Inactive FOCALIN XR 10 MG [id number] 1 po q a.m. F OCALIN XR 10 MG [id number] DEXMETHYLPHENIDATE HCL Inactive CEFDINIR 300 MG CAPS [...] PRN Insomnia TRAZODONE HCL 100 MG TAB 543237 TRAZODONE HCL Inactive CONCERTA 18 MG CR-TABS [...] s prn cough HYDROCODONE-ACETAMINOPHEN 5-325 MG TABS 851954 HYDROCODONE-ACETAMINOPHEN Inactive PHENAZOPYRIDINE HCL 200 MG TABS take 1 tab po TID for bladder pa in PHENAZOPYRIDINE HCL 200 MG TABS 2714282 PHENAZOPYRIDINE HCL Inactive HYDROCODONE-ACETAMINOPHEN 5-325 MG TABS 1 po q 6hr PRN Pain 2013 HYDROCODONE-ACETAMINOPHEN 5-325 MG TABS 401650 HYDROCODONE-ACETAMINOPHEN Inactive CELEXA 20 MG TABS 1 tablet by mouth daily CELEXA 20 MG TABS 455018 CITALOPRAM HYDROBROMIDE Inactive REGLAN 10 MG TAB 1 po TID PRN Nausea REGLAN 10 MG TAB 572046 METOCLOPRAMIDE HCL Inactive LAMISIL 250 MG TAB 1 po qd LAMISIL 250 MG TAB 662634 TERBINAFINE HCL Inactive DICLOFENAC SODIUM 75 MG TBEC 1 tablet by mouth twice daily P RN Knee pain DICLOFENAC SODIUM 75 MG TBEC 024480 DICLOFENAC S ODIUM Inactive METOCLOPRAMIDE HCL 10 MG ORAL TABS take one PO tid PRN nausea 20 29/12/14 METOCLOPRAMIDE HCL 10 MG ORAL TABS 041902 METOCLOPRAMID E HCL Inactive TERBINAFINE HCL 250 MG ORAL TABS take one table PO one time abran y TERBINAFINE HCL 250 MG ORAL TABS 805989 TERBINAFINE HCL Inactive BUPROPION HCL ER (SR) 100 MG ORAL [id number] take one t ablet by mouth one time daily for one week then take 1 two times daily BUPROPION HCL ER (SR) 100 MG ORAL [id number] BUPROPION HCL Inacti ve TRAVEL SICKNESS 25 MG ORAL CHEW chew and swallow one t ablet every 6 hours as needed TRAVEL SICKNESS 25 MG ORAL CHEW 632203 MECLIZINE HCL Inactive SUMATRIPTAN SUCCINATE 100 MG ORAL TABS Take one PRN for migrane SUMATRIPTAN SUCCINATE 100 MG ORAL TABS 024228 SUMATRIPT AN SUCCINATE Inactive COMPRO 25 MG RECTAL SUPP insert or apply one supposit ory rectally as directed every 12 hours as needed for nausea COMP RO 25 MG RECTAL SUPP 962870 PROCHLORPERAZINE Inactive ONDANSETRON [address] one tablet on tongue and allow to dissolve every 6 hours as needed for vomitting ON DANSETRON 8 MG ORAL TBDP 430523 ONDANSETRON Inactive HYDROCODONE-ACETAMINOPHEN 5-325 MG TABS 0.5 to 1 tab b y mouth every 6 hours as needed HYDROCODONE-ACETAMINOPHEN 5-325 MG TABS 8 93780 HYDROCODONE-ACETAMINOPHEN Inactive BACTRIM DS 800-160 MG TAB 1 tab by mouth twice daily 2 BACTRIM DS 800-160 MG TAB 491659 TRIMETHOPRIM-SULFAMETHOXAZOLE Inac tive DIFLUCAN 150 MG TAB 1 tablet by mouth if needed, hold until symptoms start DIFLUCAN 150 MG TAB 236805 FLUCONAZOLE Inactive IBUPROFEN 800 MG TABS 1 tab every 8 hours with food 31/03/21 IBUPROFEN 800 MG TABS 772231 IBUPROFEN Inactive HYDROCODONE-ACETAMINOPHEN 5-325 MG TABS 1 tab by mouth every 6 hours as needed HYDROCODONE-ACETAMINOPHEN 5-325 MG TABS 408080 HYDROCODONE-ACETAMINOPHEN Inactive BACTROBAN 2 % CREAM Apply to affected area BID for up to 10 days BACTROBAN 2 % CREAM 298590 MUPIROCIN CALCIUM Inactive MAGNESIUM CITRATE 1.745 GM/30ML ORAL SOLN 150ml po BID PRN C onstipation MAGNESIUM CITRATE 1.745 GM/30ML ORAL SOLN 370129 0 MAGNESIUM CITRATE Inactive DIFLUCAN 150 MG TAB 1 tablet by mouth qod DIFLUCAN 150 MG TAB 060588 FLUCONAZOLE Inactive BACTRIM DS 800-160 MG TAB 1 tab by mouth twice daily 2 BACTRIM DS 800-160 MG TAB 941026 TRIMETHOPRIM-SULFAMETHOXAZOLE Inac tive CLARITIN 10 MG TAB 1 tablet by mouth daily as needed for allergi es CLARITIN 10 MG TAB 810084 LORATADINE Inactive CIPRO 500 MG TAB 1 tablet by mouth twice daily CIPRO 500 MG TAB 515550 CIPROFLOXACIN HCL Inactive FLUCONAZOLE 150 MG TABS take 1 tab po qday once 04/06 FLUCONAZOLE 150 MG TABS 609549 FLUCONAZOLE Inactive ZITHROMAX Z-KARTHIK 250 MG TABS 2 today, then 1 daily for 4 days 201 09/18/28 ZITHROMAX Z-KARTHIK 250 MG TABS 0510312 AZITHROMYCIN Inac tive PREDNISONE 20 MG TAB 2 tabs daily for 3 days, 1 t ab daily for 3 days, 1/2 tab daily for 2 days PREDNISONE 20 MG TAB 583100 PREDNISON E Inactive AZITHROMYCIN 250 MG TABS 2 po qd x 1 day, then 1 po qd x 4 days AZITHROMYCIN 250 MG TABS 0197838 AZITHROMYCIN Inactiv e PREDNISONE 20 MG TAB 2 tabs daily for 3 days, 1 t ab daily for 3 days, 1/2 tab daily for 2 days PREDNISONE 20 MG TAB 789075 PREDNISON E Inactive CEFDINIR 300 MG CAPS by mouth twice a day CEFDINIR 300 MG CAPS 942314 CEFDINIR Inactive TRIAMCINOLONE ACETONIDE 0.1 % OINT Apply to affected a reas TID for up to 2 weeks TRIAMCINOLONE ACETONIDE 0.1 % OINT 296544 6 TRIAMCINOLONE ACETONIDE Inactive PREDNISONE 20 MG TAB 2 tabs daily for 3 days, 1 t ab daily for 3 days, 1/2 tab daily for 2 days PREDNISONE 20 MG TAB 518465 PREDNISON E Inactive BACTRIM DS 800-160 MG TABS 1 po BID x 7 days 0 BACTRIM DS 800-160 MG TABS 329072 SULFAMETHOXAZOLE-TRIMETHOPRIM Inactive CIPRO 500 MG TAB 1 tablet by mouth twice daily CIPRO 500 MG TAB 633255 CIPROFLOXACIN HCL Inactive AZITHROMYCIN 250 MG TABS 2 po qd x 1 day, then 1 po qd x 4 days AZITHROMYCIN 250 MG TABS 8392779 AZITHROMYCIN Inactiv e FLAGYL 500 MG TAB 1 tablet by mouth bid FLAGYL 500 MG TAB 901240 METRONIDAZOLE Inactive AZITHROMYCIN 250 MG TABS 2 po qd x 1 day, then 1 po qd x 4 days AZITHROMYCIN 250 MG TABS 5548001 AZITHROMYCIN Inactiv e Immunizations Vaccine Administration Date [...] Report: CBC W/DIFF, Comp. Metabolic Panel, Qual [facility] [place] Chemistry sodium, serum 139 mmol/L 227-718 2447/10/21 carbon dioxide, venous blood 33.5 mmol/L 21.0-32 [...] Report: CBC W/DIFF, Comp. Metabolic Panel, Qual [facility] [place] - Hematology leukocyte count, blood 7.9 10^3/MM^3 [...] 248 10^3/MM^3 10*3/mm3 142-424 Lab Report: Chlamydia/GC [facility]/[id number] - Lab chlamydia DNA probe NOT DETECTED NOT DETECTED Lab Report: Chlamydia/[facility]/[id number] - Microbiology Neisseria gonorrhoeae DNA probe NOT DETECTED NO T DETECTED Lab Report: Comp. Metabolic Panel, Thyro id Stimulating Hormone (L), Eryt ... - Chemistry sodium, serum 137 mmol/L 485-072 5451/05/27 carbon dioxide, venous blood 29.1 mmol/L 21.0-32 [...] 5.0-8.5 Encounters Code Encounter Date Provider Facility CPT-31537 Level 4 Est. Patient 11:08:12 [employer] Checo Conklin MD [facility] CPT-17387 Level 4 Est. Patient 16:06:48 [employer] Checo Conklin MD [facility]-60414 Level 3 Est. Patient 09:11:49 CDT Efren almendarez [facility]-89747 Level 2 Est. Patient 19:53:27 CDT Tanner hill MD [facility]-96340 Level 3 Est. Patient 09:15:34 CDT Efren almendarez [facility]-70787 Level 3 Est. Patient 11:28:51 [employer] Efren almendarez [facility]-42261 Level 4 Est. Patient 13:55:46 [employer] Checo Conklin MD [facility] CPT-91101 Level 4 Est. Patient 17:10:53 CDT Checo Conklin MD [facility] CPT-43114 Level 3 Est. Patient 15:56:22 CDT Checo Conklin MD [facility] CPT-58135 Level 3 Est. Patient 15:29:07 CDT Checo Conklin MD [facility] CPT-38203 Level 3 Est. Patient 14:38:41 CDT Checo Conklin MD [facility] CPT-36392 Level 3 Est. Patient 15:22:03 [employer] Thomas reynolds DO [facility] CPT-50708 Level 3 Est. Patient 13:34:17 [employer] Checo Conklin MD [facility] CPT-34515 Level 3 Est. Patient 12:29:32 CDT Dangelo arroyo MD [facility] CPT-76736 Level 3 Est. Patient 16:53:02 CDT Checo Conklin MD [facility] CPT-22178 Level 3 Est. Patient 16:37:13 CDT Checo Conklin MD [facility] CPT-18795 Level 3 Est. Patient 16:16:59 CDT Paul Hamlin MD [facility] CPT-89532 Level 3 Est. Patient 14:20:13 CDT Dangelo arroyo MD [facility] CPT-80384 Level 4 Est. Patient 11:29:33 CDT Checo Conklin MD [facility] CPT-32592 Level 3 Est. Patient 17:08:31 CDT Checo Conklin MD [facility] CPT-33717 Level 3 Est. Patient 16:50:42 [employer] Checo Conklin MD [facility] CPT-21944 Level 4 Est. Patient 09:26:08 [employer] Checo Conklin MD [facility] CPT-30922 Level 3 Est. Patient 11:37:10 CDT Checo Conklin MD [facility] CPT-92485 Level 4 Est. Patient 14:07:38 CDT Checo Conklin MD [facility] CPT-57840 Level 3 Est. Patient 09:54:41 CDT Checo Conklin MD [facility] CPT-15400 Level 3 Est. Patient 11:10:54 CDT Paul Hamlin MD [facility] CPT-60086 Level 3 Est. Patient 14:16:56 [employer] Checo Conklin MD [facility] CPT-31723 Level 3 Est. Patient 11:04:11 [employer] Checo Conklin MD [facility] CPT-35386 Level 3 Est. Patient 17:09:26 CDT Dangelo arroyo MD [facility] CPT-54892 Level 3 Est. Patient 16:54:37 CDT Checo Conklin MD [facility] Procedures Code Procedure Name Date Entry Date Standard Desc ription CPT-69006 UA w micro - LAB USE ONLY 17:06:46 CDT 2015 CPT-90837 [facility] Qual - LAB USE ONLY 17:06:46 CDT 05/06 CPT-57832 CMP - LAB USE ONLY 17:06:46 CDT CPT-05376 CBC with Diff - LAB USE ONLY 17:06:45 CDT 2 CPT-89870 Venipuncture Draw Fee 17:06:45 CDT CPT-LR Lesion Removal 19:53:27 CDT CPT-OV Office Visit 11:31:28 CDT CPT-02073 Tubersol 09:39:29 CDT CPT-J2550 Phenergan 25 mg (Promethazine) 13:59:02 [employer] CPT-J1885 Toradol 60 mg (Ketorolac) 13:59:02 [employer] 2012
--- OUTSIDE RECORDS SUMMARY | 2019-09-29 02:01 | XMS REPORT | Clinical Summary ---
Author Author Admin, Bethany Gonzales Organization [employer] Address Unknown Phone Unavailable Allergies, Adverse Reactions, [...] Conklin MD 2014 Abscess, skin ICD-682.9 Inactive Chceo richey MD Bacterial vaginosis ICD-616.10 Inactive Lenora [...] CAPSULE 1 po qd PRN Edema HYDROCHLOROTHIAZIDE [id number] Active Checo Conklin MD Ac tive IBUPROFEN 800 MG ORAL TABLET 1 tab every 8 hours as needed for p ain IBUPROFEN 52531159272 Active Dangelo Rangel MD Acti ve PAROXETINE HCL 40 MG ORAL TABLET 1 po qd PAR OXETINE HCL 39651625512 Active Checo Conklin MD Active MIRALAX ORAL POWDER 8.5 to 17g po qd PRN Constipation POLYETHYLENE GLYCOL 3350 18702936281 No Longer Active Checo Conklin MD Active PROTONIX 40 MG ORAL TABLET DELAYED RELEASE 1 pill [address] [facility] daily, for acid reflux PANTOPRAZOLE SODIUM 00177319191 No Longer Activ e Corry Méndez LPN Active FLAGYL 500 MG ORAL TABLET 1 tablet by mouth bid 08/29 METRONIDAZOLE 62053335328 No Longer Active Corry Méndez LPN Active CLARITHROMYCIN 500 MG ORAL TABLET 1 tab po BID x 14 days CLARITHROMYCIN 83338354771 No Longer Active Corry Méndez LPN Active AMOXICILLIN 500 MG ORAL CAPSULE 2 po BID x 14 days for [facility] Pyl[facility] AMOXICILLIN 65193085466 No Longer Active Corry Mnédez LPN Active FLUTICASONE PROPIONATE 50 MCG/ACT NASAL SUSPENSION 2 s prays/nostril qd PRN Congestion/Allergies FLUTICASONE PROPIONATE 4640245985 9 No Longer Active Checo Conklin MD Active AMOXICILLIN 500 MG ORAL CAPSULE 2 po BID x 10 days 201 01/15/27 AMOXICILLIN 87813220554 No Longer Active Checo Conklin MD Activ e CLARITIN 10 MG ORAL TABLET 1 tablet by mouth daily as needed for allergies LORATADINE 98930683062 No Longer Active Checo Ortiz MD Active BACTRIM DS 800-160 MG ORAL TABLET 1 tab by mouth twice daily 201 12/19/26 TRIMETHOPRIM-SULFAMETHOXAZOLE 39035030881 No Longer Active Ragini Carrillo MD Active DIFLUCAN 150 MG ORAL TABLET 1 tablet by mouth qod 2015 FLUCONAZOLE 37605163861 No Longer Active Efren Medel APRN Act mike AZITHROMYCIN 250 MG ORAL TABLET 2 po qd x 1 day, then 1 po q d x 4 days AZITHROMYCIN 28830592592 No Longer Active Efren flores APRN Active FLAGYL 500 MG ORAL TABLET 1 tablet by mouth bid 04/13 METRONIDAZOLE 35066112971 No Longer Active Checo Conklin MD Acti ve FOCALIN XR 10 MG ORAL CAPSULE EXTENDED RELEASE 24 HOUR 1 po q a.m. DEXMETHYLPHENIDATE HCL 19294210362 Active Checo Conklin MD Active MAGNESIUM CITRATE 1.745 GM/30ML ORAL SOLUTION 150ml po BID P RN Constipation MAGNESIUM CITRATE 51367238179 No Longer Active Checo Conklin MD Active BACTROBAN 2 % EXTERNAL CREAM Apply to affected area BID for up to 10 days MUPIROCIN CALCIUM 50114608713 No Longer Active Checo Conklin MD Active HYDROCODONE-ACETAMINOPHEN 5-325 MG ORAL TABLET 1 tab b y mouth every 6 hours as needed HYDROCODONE-ACETAMINOPHEN 12968780771 No Longer Active Checo Conklin MD Active IBUPROFEN 800 MG ORAL TABLET 1 tab every 8 hours with food 03/20 IBUPROFEN 91790025737 No Longer Active Checo Conklin MD Active DIFLUCAN 150 MG ORAL TABLET 1 tablet by mouth if neede d, hold until symptoms start FLUCONAZOLE 21005107532 No Longer Active Checo Conklin MD Active BACTRIM DS 800-160 MG ORAL TABLET 1 tab by mouth twice daily 201 11/23/03 TRIMETHOPRIM-SULFAMETHOXAZOLE 67703813881 No Longer Active Bonnie Méndez LPN Active HYDROCODONE-ACETAMINOPHEN 5-325 MG ORAL TABLET 0.5 to 1 tab by mouth every 6 hours as needed HYDROCODONE-ACETAMINOPHEN 75239398227 No Longer Active Checo Conklin MD Active ONDANSETRON 8 MG ORAL TABLET DISINTEGRATING place one tablet on tongue and allow to dissolve every 6 hours as needed for vomitting ONDANSETRON 34408896974 No Longer Active Checo Conklin MD Activ e COMPRO 25 MG RECTAL SUPPOSITORY insert or apply one garza ppository rectally as directed every 12 hours as needed for nausea PROCHLORPERAZINE 72731931124 No Longer Active Checo Conklin MD A ctive SUMATRIPTAN SUCCINATE 100 MG ORAL TABLET Take one PRN for migran e SUMATRIPTAN SUCCINATE 80744053055 No Longer Active Checo Conklin MD Active TRAVEL SICKNESS 25 MG ORAL TABLET CHEWABLE chew and sw allow one tablet every 6 hours as needed MECLIZINE HCL 18822514585 No Longer A ctive Checo Conklin MD Active BUPROPION HCL ER (SR) 100 MG ORAL TABLET EXTENDED RELE ASE 12 HOUR take one tablet by mouth one time daily for one week then take 1 two times daily BUPROPION HCL 52716546191 No Longer Active Checo gallagher MD Active TERBINAFINE HCL 250 MG ORAL TABLET take one table PO one time da moises TERBINAFINE HCL 07144259225 No Longer Active Checo Conklin MD Active METOCLOPRAMIDE HCL 10 MG ORAL TABLET take one PO tid PRN nausea METOCLOPRAMIDE HCL 30019828024 No Longer Active Checo Conklin MD Active DICLOFENAC SODIUM 75 MG ORAL TABLET DELAYED RELEASE 1 tablet by mouth twice daily PRN Knee pain DICLOFENAC SODIUM 10324871778 No Longer Active Checo Conklin MD Active LAMISIL 250 MG ORAL TABLET 1 po qd TERBINAFI NE HCL 84429701257 No Longer Active Checo Conklin MD Active REGLAN 10 MG ORAL TABLET 1 po TID PRN Nausea 3 METOCLOPRAMIDE HCL 46190821908 No Longer Active Checo Conklin MD Active CELEXA 20 MG ORAL TABLET 1 tablet by mouth daily 09/26 CITALOPRAM HYDROBROMIDE 94628922097 No Longer Active Checo Conklin MD Active AZITHROMYCIN 250 MG ORAL TABLET 2 po qd x 1 day, then 1 po q d x 4 days AZITHROMYCIN 65877558384 No Longer Active Checo Ortiz MD Active HYDROCODONE-ACETAMINOPHEN 5-325 MG ORAL TABLET 1 po q 6hr PRN Pa in HYDROCODONE-ACETAMINOPHEN 52748639965 No Longer Active Lenora Conklin MD Active PHENAZOPYRIDINE HCL 200 MG ORAL TABLET take 1 tab po TID for bladder pain PHENAZOPYRIDINE HCL 32196677290 No Longer Active Joe Conklin MD Active CIPRO 500 MG ORAL TABLET 1 tablet by mouth twice daily CIPROFLOXACIN HCL 05802315264 No Longer Active Dangelo Rangel MD Active HYDROCODONE-ACETAMINOPHEN 5-325 MG ORAL TABLET 1/2 to 1 po q 4 hours prn cough HYDROCODONE-ACETAMINOPHEN 63302081015 No Longer Activ e Dangelo Rangel MD Active BACTRIM DS 800-160 MG ORAL TABLET 1 po BID x 7 days 29/04/10 SULFAMETHOXAZOLE-TRIMETHOPRIM 72067841093 No Longer Active Checo Conklin MD Active PREDNISONE 20 MG ORAL TABLET 2 tabs daily for 3 days, 1 tab daily for 3 days, 1/2 tab daily for 2 days PREDNISONE 97140654137 No Longer Active Checo Coknlin MD Active TRIAMCINOLONE ACETONIDE 0.1 % EXTERNAL OINTMENT Apply to affected areas TID for up to 2 weeks TRIAMCINOLONE ACETONIDE 48631413065 No Longer Active Checo Conklin MD Active CEFDINIR 300 MG ORAL CAPSULE by mouth twice a day 2013 CEFDINIR 74169041392 No Longer Active Dangelo Rangel MD Acti ve BUPROPION HCL ER (SMOKING DET) 150 MG ORAL TABLET EXTE NDED RELEASE 12 HOUR 1 a day for 1 week then 1 twice a day BUPROPION HCL (SMOKING DETER) 77386864653 No Longer Active Checo Conklin MD Active SIMVASTATIN 20 MG ORAL TABLET 1 po qd SIMVASTAT IN 65731028620 Active Checo Conklin MD Active CHANTIX STARTING MONTH KARTHIK 0.5 MG X 11 & 1 MG X 42 ORA L TABLET 0.5mg daily for 3 days, then 0.5mg BID for 4 days, then 1mg BID VARENICLINE TARTRATE 31630573653 No Longer Active Checo Conklin MD Activ e XANAX 0.5 MG ORAL TABLET 1 po BID PRN anxiety A LPRAZOLAM 08215894997 Active Checo Conklin MD Active CONCERTA 18 MG ORAL TABLET EXTENDED RELEASE 1 po q a.m. METHYLPHENIDATE HCL 49717016186 No Longer Active Checo Conklin MD Active AMBIEN 5 MG ORAL TABLET 1 po qHS PRN Insomnia Z OLPIDEM TARTRATE 83770271937 Active Checo Conklin MD Active TRAZODONE HCL 100 MG ORAL TABLET 0.5 to 1 po qHS PRN Insomnia 20 30/07/08 TRAZODONE HCL 28329934518 No Longer Active Checo Conklin MD Active FIORICET 325-50-40 MG TAB 1 tablet by mouth four times daily as needed [id number] 00646121186 No Longer Active Checo Conklin MD Active PHENERGAN CREAM* 25mg applied to wrist q6hr PRN Nausea PHENERGAN CREAM* No Longer Active Checo Gonzales ctive FLONASE 50 MCG/ACT NASAL SUSPENSION 1 spray each nostril am and hs FLUTICASONE PROPIONATE 87060872041 No Longer Active Checo Conklin MD Active ANTIPYRINE-BENZOCAINE 5.4-1.4 % OTIC SOLUTION 1-2 drops in affec yohannes ear BENZOCAINE-ANTIPYRINE 26571499528 No Longer Active Checo Conklin MD Active CEFDINIR 300 MG ORAL CAPSULE 1 po bid CEFDINIR 90255736768 No Longer Active Checo Conklin MD Active PREDNISONE 20 MG ORAL TABLET 2 tabs daily for 3 days, 1 tab daily for 3 days, 1/2 tab daily for 2 days PREDNISONE 58734780522 No Longer Active Checo Conklin MD Active AZITHROMYCIN 250 MG ORAL TABLET 2 po qd x 1 day, then 1 po q d x 4 days AZITHROMYCIN 04745691723 No Longer Active Checo Ortiz MD Active PREDNISONE 20 MG ORAL TABLET 2 tabs daily for 3 days, 1 tab daily for 3 days, 1/2 tab daily for 2 days PREDNISONE 77907608755 No Longer Active Checo Conklin MD Active ZITHROMAX Z-KARTHIK 250 MG ORAL TABLET 2 today, then 1 daily for 4 d ays AZITHROMYCIN 21812789119 No Longer Active Paul Hamlin MD Active FOCALIN XR 10 MG ORAL CAPSULE EXTENDED RELEASE 24 HOUR 1 po q a. m. DEXMETHYLPHENIDATE HCL 02561381329 No Longer Active Paul Hamlin MD Active PERCOCET 10-325 MG ORAL TABLET 1 tablet every 6 hours as needed for pain OXYCODONE-ACETAMINOPHEN 57445107979 No Longer Active Paul Hamlin MD Active LORTAB 5-500 MG ORAL TABLET 1/2 to 1 tablet by mouth e very 4 hours as needed for pain HYDROCODONE-ACETAMINOPHEN 59192028324 No Longer Active Checo Conklin MD Active FOCALIN XR 15 MG ORAL CAPSULE EXTENDED RELEASE 24 HOUR 1 po q a. m. DEXMETHYLPHENIDATE HCL 44801329638 No Longer Active Checo Conklin MD Active ZOFRAN ODT 4 MG ORAL TABLET DISINTEGRATING 1 po q6hr PRN Nausea ONDANSETRON 60347008336 No Longer Active Checo Conklin MD Active PERCOCET 5-325 MG ORAL TABLET 1 tablet by mouth every 6 hour s as needed OXYCODONE-ACETAMINOPHEN 05337445353 No Longer Active Checo Conklin MD Active PYRIDIUM 200 MG ORAL TABLET take 1 tab po TID prn urinary pain. PHENAZOPYRIDINE HCL 18075676412 No Longer Active Checo Joshua Active FLUCONAZOLE 150 MG ORAL TABLET take 1 tab po qday once FLUCONAZOLE 22295133775 No Longer Active Dangelo Rangel MD Acti ve CIPRO 500 MG ORAL TABLET 1 tablet by mouth twice daily CIPROFLOXACIN HCL 24852526064 No Longer Active Dangelo Rangel MD Active PYRIDIUM 200 MG ORAL TABLET take 1 tab po TID prn urinary pain. PYRIDIUM 200 MG ORAL TABLET 1102166 PHENAZOPYRIDINE HCL Inactive PERCOCET 5-325 MG ORAL TABLET 1 tablet by mouth every 6 hour s as needed PERCOCET 5-325 MG ORAL TABLET 6477556 OXYCODONE-ACETAMINOPHEN Inactive ZOFRAN ODT 4 MG ORAL TABLET DISINTEGRATING 1 po q6hr PRN Nausea ZOFRAN ODT 4 MG ORAL TABLET DISINTEGRATING 273417 ONDAN SETRON Inactive FOCALIN XR 15 MG [...] for pain PERCOCET 10-325 MG ORAL TABLET 6710866 OXYCODONE-ACETAMI NOPHEN Inactive FOCALIN XR 10 MG ORAL CAPSULE EXTENDED RELEASE 24 HOUR 1 po q a. m. FOCALIN XR 10 MG ORAL CAPSULE EXTENDED RELEASE 24 HOUR DEXMETHYLPHENIDATE HCL Inactive CEFDINIR 300 MG ORAL CAPSULE 1 po bid CEFDINI R 300 MG ORAL CAPSULE 024108 CEFDINIR Inactive ANTIPYRINE-BENZOCAINE 5.4-1.4 % OTIC SOLUTION 1-2 drops in affec yohannes ear ANTIPYRINE-BENZOCAINE 5.4-1.4 % OTIC SOLUTION BENZOCAINE-ANTIPYRINE Inactive FLONASE 50 MCG/ACT NASAL SUSPENSION 1 spray each nostril am and hs FLONASE 50 MCG/ACT NASAL SUSPENSION 1427144 FLUTICASONE PROPIONATE I nactive PHENERGAN CREAM* 25mg applied to wrist q6hr PRN Nausea PHENERGAN CREAM* Inactive FIORICET 325-50-40 MG TAB 1 tablet by mouth four times daily as needed FIORICET 325-50-40 MG TAB ACETAMINOPHEN-C AFF-BUTALBITAL Inactive TRAZODONE HCL 100 MG ORAL TABLET 0.5 to 1 po qHS PRN Insomnia 20 30/07/08 TRAZODONE HCL 100 MG ORAL TABLET 467646 TRAZODONE HCL Inactive CONCERTA 18 MG ORAL [...] cough HYDROCODONE-ACETAMINOPHEN 5-325 MG ORAL TABLET 8 15832 HYDROCODONE-ACETAMINOPHEN Inactive PHENAZOPYRIDINE HCL 200 MG ORAL TABLET take 1 tab po TID for bladder pain PHENAZOPYRIDINE HCL 200 MG ORAL TABLET 9362649 PHENAZOPYRIDINE HCL Inactive HYDROCODONE-ACETAMINOPHEN 5-325 MG ORAL TABLET 1 po q 6hr PRN Pa in HYDROCODONE-ACETAMINOPHEN 5-325 MG ORAL TABLET 510844 HYDROCODONE-ACETAMINOPHEN Inactive CELEXA 20 MG ORAL TABLET 1 tablet by mouth daily 09/26 CELEXA 20 MG ORAL TABLET 244604 CITALOPRAM HYDROBROMIDE Inactive REGLAN 10 MG ORAL TABLET 1 po TID PRN Nausea 3 REGLAN 10 MG ORAL TABLET 241657 METOCLOPRAMIDE HCL Inactive LAMISIL 250 MG ORAL TABLET 1 po qd L AMISIL 250 MG ORAL TABLET 734067 TERBINAFINE HCL Inactive DICLOFENAC SODIUM 75 MG ORAL TABLET DELAYED RELEASE 1 tablet by mouth twice daily PRN Knee pain DICLOFENAC SODIUM 75 MG ORAL TABLET DELAYED RELEASE 264956 DICLOFENAC SODIUM Inactive METOCLOPRAMIDE HCL 10 MG ORAL TABLET take one PO tid PRN nausea METOCLOPRAMIDE HCL 10 MG ORAL TABLET 509138 METOCLOPRAM ZACH HCL Inactive TERBINAFINE HCL 250 MG ORAL TABLET take one table PO one time da moises TERBINAFINE HCL 250 MG ORAL TABLET 097543 TERBINAFINE H CL Inactive BUPROPION HCL ER [...] SICKNESS 25 M G ORAL TABLET CHEWABLE 876799 MECLIZINE HCL Inactive SUMATRIPTAN SUCCINATE 100 MG ORAL TABLET Take one PRN for migran e SUMATRIPTAN SUCCINATE 100 MG ORAL TABLET 143819 SUMATRIPTAN SUCCINATE Inactive COMPRO 25 MG RECTAL SUPPOSITORY insert or apply one garza ppository rectally as directed every 12 hours as needed for nausea COMPRO 25 MG RECTAL SUPPOSITORY 426268 PROCHLORPERAZINE Inactive ONDANSETRON 8 MG ORAL TABLET DISINTEGRATING place one tablet on tongue and allow to dissolve every 6 hours as needed for vomitting ONDANSETRON 8 MG ORAL TABLET DISINTEGRATING 399900 ONDANSETRON Inactive HYDROCODONE-ACETAMINOPHEN 5-325 MG ORAL TABLET 0.5 to 1 tab by mouth every 6 hours as needed HYDROCODONE-ACETAMIN OPHEN 5-325 MG ORAL TABLET 549358 HYDROCODONE-ACETAMINOPHEN Inactive BACTRIM DS 800-160 MG ORAL TABLET 1 tab by mouth twice daily 201 11/23/03 BACTRIM DS 800-160 MG ORAL TABLET 009190 TRIMETHOPRIM-SULFAMETHOXAZOLE Inactive DIFLUCAN 150 MG ORAL TABLET 1 tablet by mouth if neede d, hold until symptoms start DIFLUCAN 150 MG ORAL TABLET 813228 FLUCONAZ OLE Inactive IBUPROFEN 800 MG ORAL TABLET 1 tab every 8 hours with food 03/20 IBUPROFEN 800 MG ORAL TABLET 957179 IBUPROFEN Krupa ctive HYDROCODONE-ACETAMINOPHEN 5-325 MG ORAL TABLET 1 tab b y mouth every 6 hours as needed HYDROCODONE-ACETAMINOPHEN 5-325 MG ORAL TABLET 639103 HYDROCODONE-ACETAMINOPHEN Inactive BACTROBAN 2 % EXTERNAL CREAM Apply to affected area BID for up to 10 days BACTROBAN 2 % EXTERNAL CREAM 573138 MUPIROCIN CA LCIUM Inactive MAGNESIUM CITRATE 1.745 GM/30ML ORAL SOLUTION 150ml po BID P RN Constipation MAGNESIUM CITRATE 1.745 GM/30ML ORAL SOLUTION 10 11086 MAGNESIUM CITRATE Inactive DIFLUCAN 150 MG ORAL TABLET 1 tablet by mouth qod 2015 DIFLUCAN 150 MG ORAL TABLET 091433 FLUCONAZOLE Inactive BACTRIM DS 800-160 MG ORAL TABLET 1 tab by mouth twice daily 201 12/19/26 BACTRIM DS 800-160 MG ORAL TABLET 331288 TRIMETHOPRIM-SULFAMETHOXAZOLE Inactive CLARITIN 10 MG ORAL TABLET 1 tablet by mouth daily as needed for allergies CLARITIN 10 MG ORAL TABLET 609689 LORATADINE I nactive FLUTICASONE PROPIONATE 50 MCG/ACT NASAL SUSPENSION 2 s prays/nostril qd PRN Congestion/Allergies FLUTICASONE PROPION ATE 50 MCG/ACT NASAL SUSPENSION 1140497 FLUTICASONE PROPIONATE Inactive MIRALAX ORAL POWDER 8.5 to 17g po qd PRN Constipation MIRALAX ORAL POWDER 070120 POLYETHYLENE GLYCOL 3350 Inactive CIPRO 500 MG ORAL TABLET 1 tablet by mouth twice daily CIPRO 500 MG ORAL TABLET 275936 CIPROFLOXACIN HCL Inactive FLUCONAZOLE 150 MG ORAL TABLET take 1 tab po qday once FLUCONAZOLE 150 MG ORAL TABLET 424865 FLUCONAZOLE Inactive ZITHROMAX Z-KARTHIK 250 MG ORAL TABLET 2 today, then 1 daily for 4 d ays ZITHROMAX Z-KARTHIK 250 MG ORAL TABLET 663558 AZITHROMYCIN Inactive PREDNISONE 20 MG ORAL TABLET 2 tabs daily for 3 days, 1 tab daily for 3 days, 1/2 tab daily for 2 days PREDNISONE 20 MG ORAL T ABLET 496410 PREDNISONE Inactive AZITHROMYCIN 250 MG ORAL TABLET 2 po qd x 1 day, then 1 po q d x 4 days AZITHROMYCIN 250 MG ORAL TABLET 192070 AZITHROMY SPARKLE Inactive PREDNISONE 20 MG ORAL TABLET 2 tabs daily for 3 days, 1 tab daily for 3 days, 1/2 tab daily for 2 days PREDNISONE 20 MG ORAL TABLET 572217 PREDNISONE Inactive CEFDINIR 300 MG ORAL CAPSULE by mouth twice a day 2013 CEFDINIR 300 MG ORAL CAPSULE 423155 CEFDINIR Inactive TRIAMCINOLONE ACETONIDE 0.1 % EXTERNAL OINTMENT Apply to affected areas TID for up to 2 weeks TRIAMCINOLONE ACETON ZACH 0.1 % EXTERNAL OINTMENT 5933907 TRIAMCINOLONE ACETONIDE Inactive PREDNISONE 20 MG ORAL TABLET 2 tabs daily for 3 days, 1 tab daily for 3 days, 1/2 tab daily for 2 days PREDNISONE 20 MG ORAL T ABLET 687503 PREDNISONE Inactive BACTRIM DS 800-160 MG ORAL TABLET 1 po BID x 7 days 29/04/10 BACTRIM DS 800-160 MG ORAL TABLET 811424 SULFAMETHOXAZOLE-TRIMETHOP RIM Inactive CIPRO 500 MG ORAL TABLET 1 tablet by mouth twice daily CIPRO 500 MG ORAL TABLET 469516 CIPROFLOXACIN HCL Inactive AZITHROMYCIN 250 MG ORAL TABLET 2 po qd x 1 day, then 1 po q d x 4 days AZITHROMYCIN 250 MG ORAL TABLET 314314 AZITHROMY SPARKLE Inactive FLAGYL 500 MG ORAL TABLET 1 tablet by mouth bid 04/13 FLAGYL 500 MG ORAL TABLET 600391 METRONIDAZOLE Inactive AZITHROMYCIN 250 MG ORAL TABLET 2 po qd x 1 day, then 1 po q d x 4 days AZITHROMYCIN 250 MG ORAL TABLET 950858 AZITHROMY SPARKLE Inactive AMOXICILLIN 500 MG ORAL CAPSULE 2 po BID x 10 days 201 01/15/27 AMOXICILLIN 500 MG ORAL CAPSULE 582647 AMOXICILLIN Inactive AMOXICILLIN 500 MG ORAL CAPSULE 2 po BID x 14 days for H. Pylori AMOXICILLIN 500 MG ORAL CAPSULE 386563 AMOXICILLIN Inactive CLARITHROMYCIN 500 MG ORAL TABLET 1 tab po BID x 14 days CLARITHROMYCIN 500 MG ORAL TABLET 679678 CLARITHROMYCIN Inacti ve FLAGYL 500 MG ORAL TABLET 1 tablet by mouth bid 08/29 FLAGYL 500 MG ORAL TABLET 520871 METRONIDAZOLE Inactive PROTONIX 40 MG ORAL TABLET DELAYED RELEASE 1 pill by m outh daily, for acid reflux PROTONIX 40 MG ORAL TABLET DELAYED RELEAS E 294716 PANTOPRAZOLE SODIUM Inactive Immunizations Vaccine Administration Date [...] ... - Chemistry sodium, serum 138 mmol/L 784-679 5441/06/27 carbon dioxide, venous blood 30.3 mmol/L 21.0-32 [...] dipstick 1+ Negative sodium, serum 139 mmol/L 603-837 4266/11/28 carbon dioxide, venous blood 26.0 mmol/L 21.0-32 [...] Negative Encounters Code Encounter Date Provider Facility CPT-12390 Level 4 Est. Patient 11:08:43 CDT Checo Conklin MD [facility] CPT-17867 [id number] Vst-Est Level III 09:37:41 CDT Dangelo Rangel MD [facility] CPT-87427 Level 4 Est. Patient 08:57:51 [employer] Checo Conklin MD [facility] CPT-71528 Level 3 Est. Patient 11:24:55 WINDER T[employer]ER Efren almendarez [facility] CPT-84420 Level 3 Est. Patient 13:05:44 CDT Paul Hamlin MD [facility] CPT-87301 Level 3 Est. Patient 11:29:55 CDT Checo Conklin MD [facility] CPT-31382 Level 4 Est. Patient 11:08:12 WINDER TENDER Checo Conklin MD [facility] CPT-69250 Level 4 Est. Patient 16:06:48 WINDER TENDER Checo Conklin MD [facility] CPT-69186 Level 3 Est. Patient 09:11:49 CDT Efren almendarez [facility] CPT-40873 Level 2 Est. Patient 19:53:27 CDT Tanner hill MD [facility] CPT-67044 Level 3 Est. Patient 09:15:34 CDT Efren almendarez [facility] CPT-69934 Level 3 Est. Patient 11:28:51 WINDER TENDER Efren almendarez [facility] CPT-56393 Level 4 Est. Patient 13:55:46 WINDER TENDER Checo Conklin MD [facility] CPT-07049 Level 4 Est. Patient 17:10:53 CDT Checo Conklin MD [facility] CPT-99880 Level 3 Est. Patient 15:56:22 CDT Checo Conklin MD [facility] CPT-78289 Level 3 Est. Patient 15:29:07 CDT Checo Conklin MD [facility] CPT-65172 Level 3 Est. Patient 14:38:41 CDT Checo Conklin MD [facility] CPT-27275 Level 3 Est. Patient 15:22:03 WINDER TENDER Thomas reynolds DO [facility] CPT-75902 Level 3 Est. Patient 13:34:17 WINDER TENDER Checo Conklin MD [facility] CPT-14794 Level 3 Est. Patient 12:29:32 CDT Dangelo arroyo MD [facility] CPT-86443 Level 3 Est. Patient 16:53:02 CDT Checo Conklin MD [facility] CPT-95470 Level 3 Est. Patient 16:37:13 CDT Checo Conklin MD [facility] CPT-53474 Level 3 Est. Patient 16:16:59 CDT Paul Hamlin MD [facility] CPT-42369 Level 3 Est. Patient 14:20:13 CDT Dangelo arroyo MD [facility] CPT-54013 Level 4 Est. Patient 11:29:33 CDT Checo Conklin MD [facility] CPT-58665 Level 3 Est. Patient 17:08:31 CDT Checo Conklin MD [facility] CPT-30028 Level 3 Est. Patient 16:50:42 WINDER TENDER Checo Conklin MD [facility] CPT-47345 Level 4 Est. Patient 09:26:08 WINDER TENDER Checo Conklin MD [facility] CPT-51069 Level 3 Est. Patient 11:37:10 CDT Checo Conklin MD [facility] CPT-87789 Level 4 Est. Patient 14:07:38 CDT Checo Conklin MD [facility] CPT-04274 Level 3 Est. Patient 09:54:41 CDT Checo Conklin MD [facility] CPT-76194 Level 3 Est. Patient 11:10:54 CDT Paul Hamlin MD [facility] CPT-56674 Level 3 Est. Patient 14:16:56 WINDER TENDER Checo Conklin MD [facility] CPT-80912 Level 3 Est. Patient 11:04:11 WINDER TENDER Checo Conklin MD [facility] CPT-28686 Level 3 Est. Patient 17:09:26 CDT Dangelo arroyo MD [facility] CPT-29677 Level 3 Est. Patient 16:54:37 CDT Checo Conklin MD [facility] Procedures Code Procedure Name Date Entry Date Standard Desc ription CPT-81660 Wrist, right, comp 3V - XRAY USE ONLY 09:24:31 CDT CPT-29593 Abd compl w upright - XRAY USE ONLY 1 1:36:54 WINDER TENDER CPT-06823 UA w micro - LAB USE ONLY 17:06:46 CDT 2015 CPT-30695 [facility] Qual - LAB USE ONLY 17:06:46 CDT 05/06 CPT-96993 CMP - LAB USE ONLY 17:06:46 CDT CPT-16018 CBC with Diff - LAB USE ONLY 17:06:45 CDT 2 CPT-71390 Venipuncture Draw Fee 17:06:45 CDT CPT-LR Lesion Removal 19:53:27 CDT CPT-OV Office Visit 11:31:28 CDT CPT-37172 Tubersol 09:39:29 CDT CPT-J2550 Phenergan 25 mg (Promethazine) 13:59:02 WINDER TENDER CPT-J1885 Toradol 60 mg (Ketorolac) 13:59:02 WINDER TENDER 2012
--- OUTSIDE RECORDS SUMMARY | 2019-09-29 02:01 | XMS REPORT | Clinical Summary ---
Author Author Admin, Bethany Ayala [facility] Address Unknown Phone Unavailable Allergies, Adverse Reactions, [...] Conklin MD Concussion, unspecified UTI 599.0 Resolved Cehco Conklin MD Urinary tract infection, site not [...] Tobacco use disorder Health screening V70.0 Active Cehco Joshua Routine general medical examination at a [...] vulvovaginitis, unspecified Pharyngitis 462 Active Jillina Frazell CAVITY PUMP OPERATOR Acute pharyngitis Cough 786.2 Active Jillina Frasandra CAVITY PUMP OPERATOR Cough Pedal edema 782.3 Active Jillina Frasandra CAVITY PUMP OPERATOR Edema BREAST CANCER ICD-V16.3 Inactive Checo [...] 1 tab by mouth twice daily TRIMETHOPRIM-SULFAMETHOXAZOLE 01328619298 Active Jillina Frazell CAVITY PUMP OPERATOR Active DIFLUCAN 150 MG TAB 1 tablet by mouth qod FLUCO NAZOLE 00624929655 No Longer Active Jillina Frazell CAVITY PUMP OPERATOR Active CLARITIN 10 MG TAB 1 tablet by mouth daily as needed for allergies LORATADINE 28646453570 Active Efren Medel APRN Active AZITHROMYCIN 250 MG TABS 2 po qd x 1 day, then 1 po qd x 4 days AZITHROMYCIN 15522138724 No Longer Active Efren Medel CAVITY PUMP OPERATOR Active FLAGYL 500 MG TAB 1 tablet by mouth bid METRONI DAZOLE 83700617643 No Longer Active Checo Conklin MD Active FOCALIN XR 10 MG ORAL [id number] 1 po q a.m. DEX METHYLPHENIDATE HCL 89075795781 Active Checo Conklin MD Active MAGNESIUM CITRATE 1.745 GM/30ML ORAL SOLN 150ml po BID PRN C onstipation MAGNESIUM CITRATE 98448608069 No Longer Active Checo Conklin MD Active BACTROBAN 2 % CREAM Apply to affected area BID for up to 10 days MUPIROCIN CALCIUM 16545720713 No Longer Active Checo Conklin MD Active HYDROCODONE-ACETAMINOPHEN 5-325 MG TABS 1 tab by mouth every 6 hours as needed HYDROCODONE-ACETAMINOPHEN 82430222943 No Longer Activ e Checo Conklin MD Active IBUPROFEN 800 MG TABS 1 tab every 8 hours with food 20 31/03/21 IBUPROFEN 66481698765 No Longer Active Checo Conklin MD Activ e DIFLUCAN 150 MG TAB 1 tablet by mouth if needed, hold until symptoms start FLUCONAZOLE 99519701867 No Longer Active Checo Ortiz MD Active BACTRIM DS 800-160 MG TAB 1 tab by mouth twice daily 2 TRIMETHOPRIM-SULFAMETHOXAZOLE 44172880455 No Longer Active Corry leong LPN Active MIRALAX PACK 1 po qd PRN Constipation POLYETHYL JOEL GLYCOL 3350 04246003098 Active Checo Conklin MD Active HYDROCODONE-ACETAMINOPHEN 5-325 MG TABS 0.5 to 1 tab b y mouth every 6 hours as needed HYDROCODONE-ACETAMINOPHEN 42418826843 No Longer Active Checo Conklin MD Active ONDANSETRON [address] one tablet on tongue and allow to dissolve every 6 hours as needed for vomitting ONDANSETRO N 15819394073 No Longer Active Checo Conklin MD Active COMPRO 25 MG RECTAL SUPP insert or apply one supposit ory rectally as directed every 12 hours as needed for nausea PROCHLORPERA ZINE 03472265034 No Longer Active Checo Conklin MD Active SUMATRIPTAN SUCCINATE 100 MG ORAL TABS Take one PRN for migrane SUMATRIPTAN SUCCINATE 12019041897 No Longer Active Checo Conklin MD Active TRAVEL SICKNESS 25 MG ORAL CHEW chew and swallow one t ablet every 6 hours as needed MECLIZINE HCL 36076429841 No Longer Active Joe Conklin MD Active BUPROPION HCL ER (SR) 100 MG ORAL [id number] take one t ablet by mouth one time daily for one week then take 1 two times daily BUPROPION HCL 60224623584 No Longer Active Checo Conklin MD Activ e TERBINAFINE HCL 250 MG ORAL TABS take one table PO one time abran y TERBINAFINE HCL 53336211259 No Longer Active Checo Conklin MD Active METOCLOPRAMIDE HCL 10 MG ORAL TABS take one PO tid PRN nausea 20 29/12/14 METOCLOPRAMIDE HCL 08335991103 No Longer Active Checo Conklin MD Active DICLOFENAC SODIUM 75 MG TBEC 1 tablet by mouth twice daily P RN Knee pain DICLOFENAC SODIUM 31409368647 No Longer Active Checo Conklin MD Active LAMISIL 250 MG TAB 1 po qd TERBINAFINE HCL 548 19926834 No Longer Active Checo Conklin MD Active REGLAN 10 MG TAB 1 po TID PRN Nausea METOCLOPRA MIDE HCL 51969855381 No Longer Active Checo Conklin MD Active CELEXA 20 MG TABS 1 tablet by mouth daily CITALOPRAM HYDROBROMIDE 53972749688 No Longer Active Checo Conklin MD Activ e AZITHROMYCIN 250 MG TABS 2 po qd x 1 day, then 1 po qd x 4 days AZITHROMYCIN 28690793527 No Longer Active Checo Conklin MD Active HYDROCODONE-ACETAMINOPHEN 5-325 MG TABS 1 po q 6hr PRN Pain 2013 HYDROCODONE-ACETAMINOPHEN 85990587961 No Longer Active Lenora Conklin MD Active PHENAZOPYRIDINE HCL 200 MG TABS take 1 tab po TID for bladder pa in PHENAZOPYRIDINE HCL 53738583482 No Longer Active Checo Joshua Active CIPRO 500 MG TAB 1 tablet by mouth twice daily CIPROFLOXACIN HCL 75124051102 No Longer Active Dangelo Rangel MD Active HYDROCODONE-ACETAMINOPHEN 5-325 MG TABS 1/2 to 1 po q 4 hour s prn cough HYDROCODONE-ACETAMINOPHEN 75255536691 No Longer Activ e Dangelo Rangel MD Active BACTRIM DS 800-160 MG TABS 1 po BID x 7 days 0 SULFAMETHOXAZOLE-TRIMETHOPRIM 81140415954 No Longer Active Checo Conklin MD Active PREDNISONE 20 MG TAB 2 tabs daily for 3 days, 1 t ab daily for 3 days, 1/2 tab daily for 2 days PREDNISONE 63551955999 No Longer Active Checo Conklin MD Active TRIAMCINOLONE ACETONIDE 0.1 % OINT Apply to affected a reas TID for up to 2 weeks TRIAMCINOLONE ACETONIDE 50705281698 No Longer A ctive Checo Conklin MD Active CEFDINIR 300 MG CAPS by mouth twice a day CEFDI JAZZY 25715620283 No Longer Active Dangelo Rangel MD Active BUPROPION HCL (SMOKING DETER) 150 MG [id number] 1 a day for 1 week then 1 twice a day BUPROPION HCL (SMOKING DETER) 24687262122 No Lo nger Active Checo Coknlin MD Active SIMVASTATIN 20 MG TABS 1 po qd SIMVASTATIN 9333457204 5 Active Checo Conklin MD Active CHANTIX STARTING MONTH KARTHIK 0.5 MG X 11 & 1 MG X 42 TAB S 0.5mg daily for 3 days, then 0.5mg BID for 4 days, then 1mg BID VARENICLINE TARTRATE 95230749440 No Longer Active Checo Conklin MD Activ e XANAX 0.5 MG TABS 1 po BID PRN anxiety ALPRAZOLAM 70757573538 Active Checo Conklin MD Active CONCERTA 18 MG CR-TABS 1 po q a.m. METHYLPHENID ATE HCL 04624822788 No Longer Active Checo Conklin MD Active AMBIEN 5 MG TAB 1 po qHS PRN Insomnia ZOLPIDEM TARTRATE 74412645007 Active Checo Conklin MD Active TRAZODONE HCL 100 MG TAB 0.5 to 1 po qHS PRN Insomnia TRAZODONE HCL 40268728889 No Longer Active Checo Conklin MD Acti ve FIORICET 325-50-40 MG TAB 1 tablet by mouth four times daily as needed [id number] 23022633413 No Longer Active Checo Conklin MD Active PHENERGAN CREAM* 25mg applied to wrist q6hr PRN Nausea PHENERGAN CREAM* No Longer Active Checo Conklin MD A ctive FLONASE 50 MCG/ACT SUSP 1 spray each nostril am and hs FLUTICASONE PROPIONATE 54727351390 No Longer Active Checo Conklin MD Activ e ANTIPYRINE-BENZOCAINE 5.4-1.4 % SOLN 1-2 drops in affected ear BENZOCAINE-ANTIPYRINE 26936525354 No Longer Active Checo Conklin MD Active CEFDINIR 300 MG CAPS 1 po bid CEFDINIR 67599634 120 No Longer Active Checo Conklin MD Active PREDNISONE 20 MG TAB 2 tabs daily for 3 days, 1 t ab daily for 3 days, 1/2 tab daily for 2 days PREDNISONE 99098253522 No Longer Active Aracelis Conklin MD Active AZITHROMYCIN 250 MG TABS 2 po qd x 1 day, then 1 po qd x 4 days AZITHROMYCIN 11745323263 No Longer Active Checo Conklin MD Active PREDNISONE 20 MG TAB 2 tabs daily for 3 days, 1 t ab daily for 3 days, 1/2 tab daily for 2 days PREDNISONE 88296181998 No Longer Active Checo Conklin MD Active ZITHROMAX Z-KARTHIK 250 MG TABS 2 today, then 1 daily for 4 days 201 09/18/28 AZITHROMYCIN 52068308712 No Longer Active Paul Hamlin MD Active FOCALIN XR 10 MG [id number] 1 po q a.m. D EXMETHYLPHENIDATE HCL 00782432025 No Longer Active Paul Hamlin MD Activ e PERCOCET 10-325 MG TABS 1 tablet every 6 hours as needed for pain OXYCODONE-ACETAMINOPHEN 67066108002 No Longer Active Paul Hamlin MD Active LORTAB 5 5-500 MG TABS 1/2 to 1 tablet by mouth flaquito ry 4 hours as needed for pain HYDROCODONE-ACETAMINOPHEN 13856724029 No Longer Active Checo Conklin MD Active FOCALIN XR 15 MG [id number] 1 po q a.m. D EXMETHYLPHENIDATE HCL 57198463285 No Longer Active Checo Conklin MD Activ e ZOFRAN ODT 4 MG TBDP 1 po q6hr PRN Nausea ONDAN SETRON 19036432942 No Longer Active Checo Conklin MD Active PERCOCET 5-325 MG TABS 1 tablet by mouth every 6 hours as needed OXYCODONE-ACETAMINOPHEN 55701295704 No Longer Active Checo Conklin MD Active PYRIDIUM 200 MG TABS take 1 tab po TID prn urinary pain. 0 PHENAZOPYRIDINE HCL 99326827473 No Longer Active Checo Conklin MD Active FLUCONAZOLE 150 MG TABS take 1 tab po qday once 04/06 FLUCONAZOLE 01958513016 No Longer Active Dangelo Rangel MD Acti ve CIPRO 500 MG TAB 1 tablet by mouth twice daily CIPROFLOXACIN HCL 68305694676 No Longer Active Dangelo Rangel MD Active PYRIDIUM 200 MG TABS take 1 tab po TID prn urinary pain. 0 PYRIDIUM 200 MG TABS 6077000 PHENAZOPYRIDINE HCL Inactive PERCOCET 5-325 MG TABS 1 tablet by mouth every 6 hours as needed PERCOCET 5-325 MG TABS 6718136 OXYCODONE-ACETAMINOPHEN I nactive ZOFRAN ODT 4 MG TBDP 1 po q6hr PRN Nausea ZOFRAN ODT 4 MG TBDP 313380 ONDANSETRON Inactive FOCALIN XR 15 MG [id number] 1 po q a.m. F OCALIN XR 15 MG [id number] DEXMETHYLPHENIDATE HCL Inactive LORTAB 5 5-500 MG TABS 1/2 to 1 tablet by mouth flaquito ry 4 hours as needed for pain LORTAB 5 5-500 MG TABS HYDROCODONE-A CETAMINOPHEN Inactive PERCOCET 10-325 MG TABS 1 tablet every 6 hours as needed for pain PERCOCET 10-325 MG TABS 7395631 OXYCODONE-ACETAMINOPHEN Inactive FOCALIN XR 10 MG [id number] 1 po q a.m. F OCALIN XR 10 MG [id number] DEXMETHYLPHENIDATE HCL Inactive CEFDINIR 300 MG CAPS 1 po bid CEFDINIR 300 MG CAPS 20 0346 CEFDINIR Inactive ANTIPYRINE-BENZOCAINE 5.4-1.4 % SOLN 1-2 drops in affected ear ANTIPYRINE-BENZOCAINE 5.4-1.4 % SOLN 594258 BENZOCAINE-ANTIPYRINE I nactive FLONASE 50 MCG/ACT SUSP 1 spray each nostril am and hs FLONASE 50 MCG/ACT SUSP 897519 FLUTICASONE PROPIONATE Inactive PHENERGAN CREAM* 25mg applied to wrist q6hr PRN Nausea PHENERGAN CREAM* Inactive FIORICET 325-50-40 MG TAB 1 tablet by mouth four times daily as needed FIORICET 325-50-40 MG TAB ACETAMINOPHEN-C AFF-BUTALBITAL Inactive TRAZODONE HCL 100 MG TAB 0.5 to 1 po qHS PRN Insomnia TRAZODONE HCL 100 MG TAB 110084 TRAZODONE HCL Inactive CONCERTA 18 MG CR-TABS [...] s prn cough HYDROCODONE-ACETAMINOPHEN 5-325 MG TABS 520211 HYDROCODONE-ACETAMINOPHEN Inactive PHENAZOPYRIDINE HCL 200 MG TABS take 1 tab po TID for bladder pa in PHENAZOPYRIDINE HCL 200 MG TABS 4978961 PHENAZOPYRIDINE HCL Inactive HYDROCODONE-ACETAMINOPHEN 5-325 MG TABS 1 po q 6hr PRN Pain 2013 HYDROCODONE-ACETAMINOPHEN 5-325 MG TABS 531221 HYDROCODONE-ACETAMINOPHEN Inactive CELEXA 20 MG TABS 1 tablet by mouth daily CELEXA 20 MG TABS 642089 CITALOPRAM HYDROBROMIDE Inactive REGLAN 10 MG TAB 1 po TID PRN Nausea REGLAN 10 MG TAB 054005 METOCLOPRAMIDE HCL Inactive LAMISIL 250 MG TAB 1 po qd LAMISIL 250 MG TAB 026284 TERBINAFINE HCL Inactive DICLOFENAC SODIUM 75 MG TBEC 1 tablet by mouth twice daily P RN Knee pain DICLOFENAC SODIUM 75 MG TBEC 892926 DICLOFENAC S ODIUM Inactive METOCLOPRAMIDE HCL 10 MG ORAL TABS take one PO tid PRN nausea 20 29/12/14 METOCLOPRAMIDE HCL 10 MG ORAL TABS 413517 METOCLOPRAMID E HCL Inactive TERBINAFINE HCL 250 MG ORAL TABS take one table PO one time abran y TERBINAFINE HCL 250 MG ORAL TABS 104424 TERBINAFINE HCL Inactive BUPROPION HCL ER (SR) 100 MG ORAL [id number] take one t ablet by mouth one time daily for one week then take 1 two times daily BUPROPION HCL ER (SR) 100 MG ORAL [id number] BUPROPION HCL Inacti ve TRAVEL SICKNESS 25 MG ORAL CHEW chew and swallow one t ablet every 6 hours as needed TRAVEL SICKNESS 25 MG ORAL CHEW 267850 MECLIZINE HCL Inactive SUMATRIPTAN SUCCINATE 100 MG ORAL TABS Take one PRN for migrane SUMATRIPTAN SUCCINATE 100 MG ORAL TABS 957256 SUMATRIPT AN SUCCINATE Inactive COMPRO 25 MG RECTAL SUPP insert or apply one supposit ory rectally as directed every 12 hours as needed for nausea COMP RO 25 MG RECTAL SUPP 203758 PROCHLORPERAZINE Inactive ONDANSETRON [address] one tablet on tongue and allow to dissolve every 6 hours as needed for vomitting ON DANSETRON 8 MG ORAL TBDP 410639 ONDANSETRON Inactive HYDROCODONE-ACETAMINOPHEN 5-325 MG TABS 0.5 to 1 tab b y mouth every 6 hours as needed HYDROCODONE-ACETAMINOPHEN 5-325 MG TABS 8 55150 HYDROCODONE-ACETAMINOPHEN Inactive BACTRIM DS 800-160 MG TAB 1 tab by mouth twice daily 2 BACTRIM DS 800-160 MG TAB 193356 TRIMETHOPRIM-SULFAMETHOXAZOLE Inac tive DIFLUCAN 150 MG TAB 1 tablet by mouth if needed, hold until symptoms start DIFLUCAN 150 MG TAB 522252 FLUCONAZOLE Inactive IBUPROFEN 800 MG TABS 1 tab every 8 hours with food 31/03/21 IBUPROFEN 800 MG TABS 100305 IBUPROFEN Inactive HYDROCODONE-ACETAMINOPHEN 5-325 MG TABS 1 tab by mouth every 6 hours as needed HYDROCODONE-ACETAMINOPHEN 5-325 MG TABS 275608 HYDROCODONE-ACETAMINOPHEN Inactive BACTROBAN 2 % CREAM Apply to affected area BID for up to 10 days BACTROBAN 2 % CREAM 295986 MUPIROCIN CALCIUM Inactive MAGNESIUM CITRATE 1.745 GM/30ML ORAL SOLN 150ml po BID PRN C onstipation MAGNESIUM CITRATE 1.745 GM/30ML ORAL SOLN 551909 0 MAGNESIUM CITRATE Inactive DIFLUCAN 150 MG TAB 1 tablet by mouth qod DIFLUCAN 150 MG TAB 552479 FLUCONAZOLE Inactive CIPRO 500 MG TAB 1 tablet by mouth twice daily CIPRO 500 MG TAB 047561 CIPROFLOXACIN HCL Inactive FLUCONAZOLE 150 MG TABS take 1 tab po qday once 04/06 FLUCONAZOLE 150 MG TABS 934850 FLUCONAZOLE Inactive ZITHROMAX Z-KARTHIK 250 MG TABS 2 today, then 1 daily for 4 days 201 09/18/28 ZITHROMAX Z-KARTHIK 250 MG TABS 9996641 AZITHROMYCIN Inac tive PREDNISONE 20 MG TAB 2 tabs daily for 3 days, 1 t ab daily for 3 days, 1/2 tab daily for 2 days PREDNISONE 20 MG TAB 538748 PREDNISON E Inactive AZITHROMYCIN 250 MG TABS 2 po qd x 1 day, then 1 po qd x 4 days AZITHROMYCIN 250 MG TABS 8431503 AZITHROMYCIN Inactiv e PREDNISONE 20 MG TAB 2 tabs daily for 3 days, 1 t ab daily for 3 days, 1/2 tab daily for 2 days PREDNISONE 20 MG TAB 785079 PREDNISON E Inactive CEFDINIR 300 MG CAPS by mouth twice a day CEFDINIR 300 MG CAPS 693817 CEFDINIR Inactive TRIAMCINOLONE ACETONIDE 0.1 % OINT Apply to affected a reas TID for up to 2 weeks TRIAMCINOLONE ACETONIDE 0.1 % OINT 208121 6 TRIAMCINOLONE ACETONIDE Inactive PREDNISONE 20 MG TAB 2 tabs daily for 3 days, 1 t ab daily for 3 days, 1/2 tab daily for 2 days PREDNISONE 20 MG TAB 391910 PREDNISON E Inactive BACTRIM DS 800-160 MG TABS 1 po BID x 7 days 0 BACTRIM DS 800-160 MG TABS 640932 SULFAMETHOXAZOLE-TRIMETHOPRIM Inactive CIPRO 500 MG TAB 1 tablet by mouth twice daily CIPRO 500 MG TAB 428025 CIPROFLOXACIN HCL Inactive AZITHROMYCIN 250 MG TABS 2 po qd x 1 day, then 1 po qd x 4 days AZITHROMYCIN 250 MG TABS 8315130 AZITHROMYCIN Inactiv e FLAGYL 500 MG TAB 1 tablet by mouth bid FLAGYL 500 MG TAB 853096 METRONIDAZOLE Inactive AZITHROMYCIN 250 MG TABS 2 po qd x 1 day, then 1 po qd x 4 days AZITHROMYCIN 250 MG TABS 4985146 AZITHROMYCIN Inactiv e Immunizations Vaccine Administration Date Value Standard Michael cription TB-PPD (tuberculin purified protein derivative), intra dermal administration Tubersol Vital Signs Date Name Value Unit Range Description blood pressure, diastolic - 8462-4 79 mm[Hg] [...] ... - Chemistry sodium, serum 141 mmol/L 700-958 8956/01/26 carbon dioxide, venous blood 30.0 mmol/L 21.0-32 .0 potassium, serum 4.0 mmol/L 3.5-5.2 chloride, serum 105 mmol/L 98-107 blood glucose 85 mg/dL 65-110 urea nitrogen, blood 9 mg/dL 7-18 creatinine, serum 0.66 mg/dL 0.55-1.30 alanine aminotransferase (SGPT), serum 31 U/L 12-78 aspartate aminotransferase (SGOT), serum 21 U/L 15-37 calcium, serum 8.2 mg/dL 8.5-10.1 bilirubin, serum, total 1.10 mg/dL 0.00-1.00 cholesterol, serum 178 mg/dL 109-122 5633/01/26 triglyceride, serum, fasting 149 mg/dL 30-200 HDL [...] ... - Chemistry sodium, serum 137 mmol/L 093-968 2300/05/27 carbon dioxide, venous blood 29.1 mmol/L 21.0-32 [...] 5.0-8.5 Encounters Code Encounter Date Provider Facility CPT-57607 Level 3 Est. Patient 09:15:34 CDT Efren almendarez [facility] CPT-66637 Level 3 Est. Patient 11:28:51 TABLE ASSEMBLER Efren almendarez [facility] CPT-41178 Level 4 Est. Patient 13:55:46 TABLE ASSEMBLER Checo Conklin MD [facility] CPT-63850 Level 4 Est. Patient 17:10:53 CDT Checo Conklin MD [facility] CPT-24292 Level 3 Est. Patient 15:56:22 CDT Checo Conklin MD [facility] CPT-18649 Level 3 Est. Patient 15:29:07 CDT Checo Conklin MD [facility] CPT-89828 Level 3 Est. Patient 14:38:41 CDT Checo Conklin MD [facility] CPT-52769 Level 3 Est. Patient 15:22:03 TABLE ASSEMBLER Thomas reynolds DO [facility] CPT-25066 Level 3 Est. Patient 13:34:17 TABLE ASSEMBLER Checo Conklin MD [facility] CPT-20601 Level 3 Est. Patient 12:29:32 CDT Dangelo arroyo MD [facility] CPT-28524 Level 3 Est. Patient 16:53:02 CDT Checo Conklin MD [facility] CPT-16449 Level 3 Est. Patient 16:37:13 CDT Checo Conklin MD [facility] CPT-82532 Level 3 Est. Patient 16:16:59 CDT Paul Hamlin MD [facility] CPT-55708 Level 3 Est. Patient 14:20:13 CDT Dangelo arroyo MD [facility] CPT-93442 Level 4 Est. Patient 11:29:33 CDT Checo Conklin MD [facility] CPT-70248 Level 3 Est. Patient 17:08:31 CDT Checo Conklin MD [facility] CPT-33484 Level 3 Est. Patient 16:50:42 TABLE ASSEMBLER Checo Conklin MD [facility] CPT-54791 Level 4 Est. Patient 09:26:08 TABLE ASSEMBLER Checo Conklin MD [facility] CPT-07148 Level 3 Est. Patient 11:37:10 CDT Checo Conklin MD [facility] CPT-78156 Level 4 Est. Patient 14:07:38 CDT Checo Conklin MD [facility] CPT-48796 Level 3 Est. Patient 09:54:41 CDT Checo Conklin MD [facility] CPT-94593 Level 3 Est. Patient 11:10:54 CDT Paul Hamlin MD [facility] CPT-09916 Level 3 Est. Patient 14:16:56 TABLE ASSEMBLER Checo Conklin MD [facility] CPT-43483 Level 3 Est. Patient 11:04:11 TABLE ASSEMBLER Checo Conklin MD [facility] CPT-83681 Level 3 Est. Patient 17:09:26 CDT Dangelo arroyo MD [facility] CPT-40428 Level 3 Est. Patient 16:54:37 CDT Checo Conklin MD [facility] Procedures Code Procedure Name Date Entry Date Standard Desc ription CPT-OV Office Visit 11:31:28 CDT CPT-62353 Tubersol 09:39:29 CDT CPT-J2550 Phenergan 25 mg (Promethazine) 13:59:02 TABLE ASSEMBLER CPT-J1885 Toradol 60 mg (Ketorolac) 13:59:02 TABLE ASSEMBLER 2012
--- OUTSIDE RECORDS SUMMARY | 2019-09-29 02:01 | XMS REPORT | Clinical Summary ---
Author Author Admin, Bethany Gonzales Organization [facility] Address Unknown Phone Unavailable Allergies, Adverse Reactions, [...] Active Checo Joshua Acute sinusitis, unspecified FH DIABETES ICD-V18.0 Inactive Checo Conklin MD 201 08/27/26 CONCUSSION ICD-850.9 Inactive Checo Joshua FH BREAST CANCER ICD-V16.3 Inactive Checo Joshua UTI ICD-599.0 Inactive Checo Conklin MD 2013 ABDOMINAL PAIN RIGHT LOWER QUADRANT ICD-789.03 Inactive Checo Conklin MD HEADACHE, TENSION ICD-307.81 Inactive Checo Conklin MD PHARYNGITIS ICD-462 Inactive Checo Conklin MD Hypoglycemia, unspecified ICD-251.2 Inactive [facility] [...] Lenora Conklin MD Pedal edema ICD-782.3 Inactive Cehco Conklin MD [...] po BID x 10 days 09/12 AMOXICILLIN 81842999262 No Longer Active Checo Conklin MD Activ e PAROXETINE HCL 20 MG ORAL TABS 0.5 po qd 6 days, then 1 po qd 09/02 PAROXETINE HCL 67142958864 Active Checo Conklin MD Active FLUTICASONE PROPIONATE 50 MCG/ACT NASAL SUSP 2 sprays/ nostril qd PRN Congestion/Allergies FLUTICASONE PROPIONATE 46693514456 Ac tive Checo Conklin MD Active MIRALAX ORAL POWD 8.5 to 17g po qd PRN Constipation POLYETHYLENE GLYCOL 3350 52971493743 Active Checo Conklin MD Active CLARITIN 10 MG TAB 1 tablet by mouth daily as needed for allergi es LORATADINE 11424679187 No Longer Active Checo Conklin MD Active BACTRIM DS 800-160 MG TAB 1 tab by mouth twice daily 2 TRIMETHOPRIM-SULFAMETHOXAZOLE 25067139440 No Longer Active Tanner Carrillo MD Active DIFLUCAN 150 MG TAB 1 tablet by mouth qod FLUCO NAZOLE 73232028545 No Longer Active Efren Medel APRN Active AZITHROMYCIN 250 MG TABS 2 po qd x 1 day, then 1 po qd x 4 days AZITHROMYCIN 03994783512 No Longer Active Efren Medel APRN Active FLAGYL 500 MG TAB 1 tablet by mouth bid METRONI DAZOLE 07204457804 No Longer Active Checo Cnoklin MD Active FOCALIN XR [id number] 1 po q a.m. DEX METHYLPHENIDATE HCL 72981161631 Active Checo Conklin MD Active MAGNESIUM CITRATE 1.745 GM/30ML ORAL SOLN 150ml po BID PRN C onstipation MAGNESIUM CITRATE 12885551446 No Longer Active Checo Conklin MD Active BACTROBAN 2 % CREAM Apply to affected area BID for up to 10 days MUPIROCIN CALCIUM 29693602567 No Longer Active Checo Conklin MD Active HYDROCODONE-ACETAMINOPHEN 5-325 MG TABS 1 tab by mouth every 6 hours as needed HYDROCODONE-ACETAMINOPHEN 44331214099 No Longer Activ e Checo Conklin MD Active IBUPROFEN 800 MG TABS 1 tab every 8 hours with food 31/03/21 IBUPROFEN 19901725052 No Longer Active Checo Conklin MD Activ e DIFLUCAN 150 MG TAB 1 tablet by mouth if needed, hold until symptoms start FLUCONAZOLE 13161097130 No Longer Active Checo Ortiz MD Active BACTRIM DS 800-160 MG TAB 1 tab by mouth twice daily 2 TRIMETHOPRIM-SULFAMETHOXAZOLE 95897852105 No Longer Active Corry leong LPN Active HYDROCODONE-ACETAMINOPHEN 5-325 MG TABS 0.5 to 1 tab b y mouth every 6 hours as needed HYDROCODONE-ACETAMINOPHEN 32567459765 No Longer Active Checo Conlkin MD Active ONDANSETRON [address] one tablet on tongue and allow to dissolve every 6 hours as needed for vomitting ONDANSETRO N 67168609486 No Longer Active Checo Conklin MD Active COMPRO 25 MG RECTAL SUPP insert or apply one supposit ory rectally as directed every 12 hours as needed for nausea PROCHLORPERA ZINE 35968414991 No Longer Active Checo Conklin MD Active SUMATRIPTAN SUCCINATE 100 MG ORAL TABS Take one PRN for migrane SUMATRIPTAN SUCCINATE 27953562258 No Longer Active Checo Conklin MD Active TRAVEL SICKNESS 25 MG ORAL CHEW chew and swallow one t ablet every 6 hours as needed MECLIZINE HCL 91274705135 No Longer Active Joe Conklin MD Active BUPROPION HCL ER (SR) 100 MG ORAL [id number] take one t ablet by mouth one time daily for one week then take 1 two times daily BUPROPION HCL 82798277180 No Longer Active Checo Conklin MD Activ e TERBINAFINE HCL 250 MG ORAL TABS take one table PO one time abran y TERBINAFINE HCL 89903596203 No Longer Active Checo Conklin MD Active METOCLOPRAMIDE HCL 10 MG ORAL TABS take one PO tid PRN nausea 20 29/12/14 METOCLOPRAMIDE HCL 06987899304 No Longer Active Checo Conkiln MD Active DICLOFENAC SODIUM 75 MG TBEC 1 tablet by mouth twice daily P RN Knee pain DICLOFENAC SODIUM 47710334490 No Longer Active Checo Conklin MD Active LAMISIL 250 MG TAB 1 po qd TERBINAFINE HCL 548 85907484 No Longer Active Checo Conklin MD Active REGLAN 10 MG TAB 1 po TID PRN Nausea METOCLOPRA MIDE HCL 35968797777 No Longer Active Checo Conklin MD Active CELEXA 20 MG TABS 1 tablet by mouth daily CITALOPRAM HYDROBROMIDE 61974931515 No Longer Active Checo Conklin MD Activ e AZITHROMYCIN 250 MG TABS 2 po qd x 1 day, then 1 po qd x 4 days AZITHROMYCIN 58229825138 No Longer Active Checo Conklin MD Active HYDROCODONE-ACETAMINOPHEN 5-325 MG TABS 1 po q 6hr PRN Pain 2013 HYDROCODONE-ACETAMINOPHEN 56958654583 No Longer Active Lenora Conklin MD Active PHENAZOPYRIDINE HCL 200 MG TABS take 1 tab po TID for bladder pa in PHENAZOPYRIDINE HCL 37248103674 No Longer Active Checo Joshua Active CIPRO 500 MG TAB 1 tablet by mouth twice daily CIPROFLOXACIN HCL 91241445666 No Longer Active Dangelo Rangel MD Active HYDROCODONE-ACETAMINOPHEN 5-325 MG TABS 1/2 to 1 po q 4 hour s prn cough HYDROCODONE-ACETAMINOPHEN 96402553304 No Longer Activ e Dangelo Rangel MD Active BACTRIM DS 800-160 MG TABS 1 po BID x 7 days 0 SULFAMETHOXAZOLE-TRIMETHOPRIM 85419774775 No Longer Active Checo Conklin MD Active PREDNISONE 20 MG TAB 2 tabs daily for 3 days, 1 t ab daily for 3 days, 1/2 tab daily for 2 days PREDNISONE 58725995756 No Longer Active Checo Conklin MD Active TRIAMCINOLONE ACETONIDE 0.1 % OINT Apply to affected a reas TID for up to 2 weeks TRIAMCINOLONE ACETONIDE 45948469821 No Longer A ctive Checo Conklin MD Active CEFDINIR 300 MG CAPS by mouth twice a day CEFDI JAZZY 65383917170 No Longer Active Dangelo Rangel MD Active BUPROPION HCL (SMOKING DETER) 150 MG [id number] 1 a day for 1 week then 1 twice a day BUPROPION HCL (SMOKING DETER) 77180999457 No Lo nger Active Checo Conklin MD Active SIMVASTATIN 20 MG TABS 1 po qd SIMVASTATIN 9580641474 5 Active Checo Conklin MD Active CHANTIX STARTING MONTH KARTHIK 0.5 MG X 11 & 1 MG X 42 TAB S 0.5mg daily for 3 days, then 0.5mg BID for 4 days, then 1mg BID VARENICLINE TARTRATE 28099685128 No Longer Active Checo Conklin MD Activ e XANAX 0.5 MG TABS 1 po BID PRN anxiety ALPRAZOLAM 53101596316 Active Checo Conklin MD Active CONCERTA 18 MG CR-TABS 1 po q a.m. METHYLPHENID ATE HCL 00166617795 No Longer Active Checo Conklin MD Active AMBIEN 5 MG TAB 1 po qHS PRN Insomnia ZOLPIDEM TARTRATE 70110884028 Active Checo Conklin MD Active TRAZODONE HCL 100 MG TAB 0.5 to 1 po qHS PRN Insomnia TRAZODONE HCL 92952485984 No Longer Active Checo Conklin MD Acti ve FIORICET 325-50-40 MG TAB 1 tablet by mouth four times daily as needed [id number] 20184010271 No Longer Active Checo Conklin MD Active PHENERGAN CREAM* 25mg applied to wrist q6hr PRN Nausea PHENERGAN CREAM* No Longer Active Checo Conklin MD A ctive FLONASE 50 MCG/ACT SUSP 1 spray each nostril am and hs FLUTICASONE PROPIONATE 99770836240 No Longer Active Checo Conklin MD Activ e ANTIPYRINE-BENZOCAINE 5.4-1.4 % SOLN 1-2 drops in affected ear BENZOCAINE-ANTIPYRINE 51867484279 No Longer Active Checo Conklin MD Active CEFDINIR 300 MG CAPS 1 po bid CEFDINIR 82059704 120 No Longer Active Checo Conklin MD Active PREDNISONE 20 MG TAB 2 tabs daily for 3 days, 1 t ab daily for 3 days, 1/2 tab daily for 2 days PREDNISONE 53774335058 No Longer Active Aracelis Conklin MD Active AZITHROMYCIN 250 MG TABS 2 po qd x 1 day, then 1 po qd x 4 days AZITHROMYCIN 65723119968 No Longer Active Checo Conklin MD Active PREDNISONE 20 MG TAB 2 tabs daily for 3 days, 1 t ab daily for 3 days, 1/2 tab daily for 2 days PREDNISONE 00713114000 No Longer Active Checo Conklin MD Active ZITHROMAX Z-KARTHIK 250 MG TABS 2 today, then 1 daily for 4 days 201 09/18/28 AZITHROMYCIN 56361165916 No Longer Active Paul Hamlin MD Active FOCALIN XR 10 MG [id number] 1 po q a.m. D EXMETHYLPHENIDATE HCL 36095835394 No Longer Active Paul Hamlin MD Activ e PERCOCET 10-325 MG TABS 1 tablet every 6 hours as needed for pain OXYCODONE-ACETAMINOPHEN 83638188375 No Longer Active Paul Hamlin MD Active LORTAB 5 5-500 MG TABS 1/2 to 1 tablet by mouth flaquito ry 4 hours as needed for pain HYDROCODONE-ACETAMINOPHEN 85613599161 No Longer Active Checo Conklin MD Active FOCALIN XR 15 MG [id number] 1 po q a.m. D EXMETHYLPHENIDATE HCL 39800128942 No Longer Active Checo Conklin MD Activ e ZOFRAN ODT 4 MG TBDP 1 po q6hr PRN Nausea ONDAN SETRON 72383851219 No Longer Active Checo Conklin MD Active PERCOCET 5-325 MG TABS 1 tablet by mouth every 6 hours as needed OXYCODONE-ACETAMINOPHEN 86810121373 No Longer Active Checo Conklin MD Active PYRIDIUM 200 MG TABS take 1 tab po TID prn urinary pain. 0 PHENAZOPYRIDINE HCL 42218704007 No Longer Active Checo Conklin MD Active FLUCONAZOLE 150 MG TABS take 1 tab po qday once 04/06 FLUCONAZOLE 06617845575 No Longer Active Dangelo Rangel MD Acti ve CIPRO 500 MG TAB 1 tablet by mouth twice daily CIPROFLOXACIN HCL 75891673037 No Longer Active Dangelo Rangel MD Active PYRIDIUM 200 MG TABS take 1 tab po TID prn urinary pain. 0 PYRIDIUM 200 MG TABS 5273809 PHENAZOPYRIDINE HCL Inactive PERCOCET 5-325 MG TABS 1 tablet by mouth every 6 hours as needed PERCOCET 5-325 MG TABS 3161672 OXYCODONE-ACETAMINOPHEN I nactive ZOFRAN ODT 4 MG TBDP 1 po q6hr PRN Nausea ZOFRAN ODT 4 MG TBDP 780354 ONDANSETRON Inactive FOCALIN XR 15 MG [id number] 1 po q a.m. F OCALIN XR 15 MG [id number] DEXMETHYLPHENIDATE HCL Inactive LORTAB 5 5-500 MG TABS 1/2 to 1 tablet by mouth flaquito ry 4 hours as needed for pain LORTAB 5 5-500 MG TABS HYDROCODONE-A CETAMINOPHEN Inactive PERCOCET 10-325 MG TABS 1 tablet every 6 hours as needed for pain PERCOCET 10-325 MG TABS 5615133 OXYCODONE-ACETAMINOPHEN Inactive FOCALIN XR 10 MG [id number] 1 po q a.m. F OCALIN XR 10 MG [id number] DEXMETHYLPHENIDATE HCL Inactive CEFDINIR 300 MG CAPS [...] PRN Insomnia TRAZODONE HCL 100 MG TAB 631941 TRAZODONE HCL Inactive CONCERTA 18 MG CR-TABS [...] s prn cough HYDROCODONE-ACETAMINOPHEN 5-325 MG TABS 808523 HYDROCODONE-ACETAMINOPHEN Inactive PHENAZOPYRIDINE HCL 200 MG TABS take 1 tab po TID for bladder pa in PHENAZOPYRIDINE HCL 200 MG TABS 3845619 PHENAZOPYRIDINE HCL Inactive HYDROCODONE-ACETAMINOPHEN 5-325 MG TABS 1 po q 6hr PRN Pain 2013 HYDROCODONE-ACETAMINOPHEN 5-325 MG TABS 365111 HYDROCODONE-ACETAMINOPHEN Inactive CELEXA 20 MG TABS 1 tablet by mouth daily CELEXA 20 MG TABS 026113 CITALOPRAM HYDROBROMIDE Inactive REGLAN 10 MG TAB 1 po TID PRN Nausea REGLAN 10 MG TAB 332527 METOCLOPRAMIDE HCL Inactive LAMISIL 250 MG TAB 1 po qd LAMISIL 250 MG TAB 111271 TERBINAFINE HCL Inactive DICLOFENAC SODIUM 75 MG TBEC 1 tablet by mouth twice daily P RN Knee pain DICLOFENAC SODIUM 75 MG TBEC 954719 DICLOFENAC S ODIUM Inactive METOCLOPRAMIDE HCL 10 MG ORAL TABS take one PO tid PRN nausea 20 29/12/14 METOCLOPRAMIDE HCL 10 MG ORAL TABS 271360 METOCLOPRAMID E HCL Inactive TERBINAFINE HCL 250 MG ORAL TABS take one table PO one time abran y TERBINAFINE HCL 250 MG ORAL TABS 290570 TERBINAFINE HCL Inactive BUPROPION HCL ER (SR) 100 MG ORAL [id number] take one t ablet by mouth one time daily for one week then take 1 two times daily BUPROPION HCL ER (SR) 100 MG ORAL [id number] BUPROPION HCL Inacti ve TRAVEL SICKNESS 25 MG ORAL CHEW chew and swallow one t ablet every 6 hours as needed TRAVEL SICKNESS 25 MG ORAL CHEW 821003 MECLIZINE HCL Inactive SUMATRIPTAN SUCCINATE 100 MG ORAL TABS Take one PRN for migrane SUMATRIPTAN SUCCINATE 100 MG ORAL TABS 492987 SUMATRIPT AN SUCCINATE Inactive COMPRO 25 MG RECTAL SUPP insert or apply one supposit ory rectally as directed every 12 hours as needed for nausea COMP RO 25 MG RECTAL SUPP 867242 PROCHLORPERAZINE Inactive ONDANSETRON [address] one tablet on tongue and allow to dissolve every 6 hours as needed for vomitting ON DANSETRON 8 MG ORAL TBDP 051858 ONDANSETRON Inactive HYDROCODONE-ACETAMINOPHEN 5-325 MG TABS 0.5 to 1 tab b y mouth every 6 hours as needed HYDROCODONE-ACETAMINOPHEN 5-325 MG TABS 8 58400 HYDROCODONE-ACETAMINOPHEN Inactive BACTRIM DS 800-160 MG TAB 1 tab by mouth twice daily 2 BACTRIM DS 800-160 MG TAB 220404 TRIMETHOPRIM-SULFAMETHOXAZOLE Inac tive DIFLUCAN 150 MG TAB 1 tablet by mouth if needed, hold until symptoms start DIFLUCAN 150 MG TAB 031374 FLUCONAZOLE Inactive IBUPROFEN 800 MG TABS 1 tab every 8 hours with food 31/03/21 IBUPROFEN 800 MG TABS 020595 IBUPROFEN Inactive HYDROCODONE-ACETAMINOPHEN 5-325 MG TABS 1 tab by mouth every 6 hours as needed HYDROCODONE-ACETAMINOPHEN 5-325 MG TABS 923708 HYDROCODONE-ACETAMINOPHEN Inactive BACTROBAN 2 % CREAM Apply to affected area BID for up to 10 days BACTROBAN 2 % CREAM 549481 MUPIROCIN CALCIUM Inactive MAGNESIUM CITRATE 1.745 GM/30ML ORAL SOLN 150ml po BID PRN C onstipation MAGNESIUM CITRATE 1.745 GM/30ML ORAL SOLN 840518 0 MAGNESIUM CITRATE Inactive DIFLUCAN 150 MG TAB 1 tablet by mouth qod DIFLUCAN 150 MG TAB 587389 FLUCONAZOLE Inactive BACTRIM DS 800-160 MG TAB 1 tab by mouth twice daily 2 BACTRIM DS 800-160 MG TAB 867426 TRIMETHOPRIM-SULFAMETHOXAZOLE Inac tive CLARITIN 10 MG TAB 1 tablet by mouth daily as needed for allergi es CLARITIN 10 MG TAB 362984 LORATADINE Inactive CIPRO 500 MG TAB 1 tablet by mouth twice daily CIPRO 500 MG TAB 140252 CIPROFLOXACIN HCL Inactive FLUCONAZOLE 150 MG TABS take 1 tab po qday once 04/06 FLUCONAZOLE 150 MG TABS 391488 FLUCONAZOLE Inactive ZITHROMAX Z-KARTHIK 250 MG TABS 2 today, then 1 daily for 4 days 201 09/18/28 ZITHROMAX Z-KARTHIK 250 MG TABS 3646660 AZITHROMYCIN Inac tive PREDNISONE 20 MG TAB 2 tabs daily for 3 days, 1 t ab daily for 3 days, 1/2 tab daily for 2 days PREDNISONE 20 MG TAB 059731 PREDNISON E Inactive AZITHROMYCIN 250 MG TABS 2 po qd x 1 day, then 1 po qd x 4 days AZITHROMYCIN 250 MG TABS 7491726 AZITHROMYCIN Inactiv e PREDNISONE 20 MG TAB 2 tabs daily for 3 days, 1 t ab daily for 3 days, 1/2 tab daily for 2 days PREDNISONE 20 MG TAB 059129 PREDNISON E Inactive CEFDINIR 300 MG CAPS by mouth twice a day CEFDINIR 300 MG CAPS 778518 CEFDINIR Inactive TRIAMCINOLONE ACETONIDE 0.1 % OINT Apply to affected a reas TID for up to 2 weeks TRIAMCINOLONE ACETONIDE 0.1 % OINT 623422 6 TRIAMCINOLONE ACETONIDE Inactive PREDNISONE 20 MG TAB 2 tabs daily for 3 days, 1 t ab daily for 3 days, 1/2 tab daily for 2 days PREDNISONE 20 MG TAB 291969 PREDNISON E Inactive BACTRIM DS 800-160 MG TABS 1 po BID x 7 days 0 BACTRIM DS 800-160 MG TABS 501709 SULFAMETHOXAZOLE-TRIMETHOPRIM Inactive CIPRO 500 MG TAB 1 tablet by mouth twice daily CIPRO 500 MG TAB 423701 CIPROFLOXACIN HCL Inactive AZITHROMYCIN 250 MG TABS 2 po qd x 1 day, then 1 po qd x 4 days AZITHROMYCIN 250 MG TABS 3856379 AZITHROMYCIN Inactiv e FLAGYL 500 MG TAB 1 tablet by mouth bid FLAGYL 500 MG TAB 724162 METRONIDAZOLE Inactive AZITHROMYCIN 250 MG TABS 2 po qd x 1 day, then 1 po qd x 4 days AZITHROMYCIN 250 MG TABS 8098110 AZITHROMYCIN Inactiv e AMOXICILLIN 500 MG ORAL CAPS 2 po BID x 10 days 09/12 AMOXICILLIN 500 MG ORAL CAPS 724283 AMOXICILLIN Inactive Immunizations Vaccine Administration Date Value [...] 11 .6-14.8 platelet count 248 10^3/MM^3 10*3/mm3 356-721 9404/05/27 erythrocyte (RBC) count 4.40 10^6/MM^3 10*6/mm3 4.04-5.4 8 lymphocytes as percent of blood leukocytes 25.1 % 20.5-51.1 monocytes as percent of blood leukocytes 7.6 % 1.7-9.3 neutrophils as percent of blood leukocytes 64.6 % 42.2-75.2 leukocyte count, blood 8.0 10^3/MM^3 10*3/mm3 4.6-10.2 Lab Report: CBC W/DIFF, Comp. Metabolic Panel, Qual [facility] [place] - Chemistry sodium, serum 139 mmol/L 720-849 4801/10/21 carbon dioxide, venous blood 33.5 mmol/L 21.0-32 [...] CBC W/DIFF, Comp. Metabolic Panel, Qual [facility] [place] - Hematology leukocyte count, blood 7.9 10^3/MM^3 10*3/mm3 4.6-10.2 hematocrit, blood 43.7 % 36.0-46.0 mean corpuscular volume, RBC 97 fL 80-97 mean corpuscular hemoglobin, RBC 32.6 pg 27. 0-31.2 mean corpuscular hemoglobin concentration, RBC 33.8 G/DL % 31.8-35.4 red blood cell distribution width 13.8 % 11 .6-14.8 platelet count 248 10^3/MM^3 10*3/mm3 179-045 1684/10/21 neutrophils as percent of blood leukocytes 65.5 % 42.2-75.2 monocytes as percent of blood leukocytes 4.1 % 1.7-9.3 lymphocytes as percent of blood leukocytes 27.5 % 20.5-51.1 erythrocyte (RBC) count 4.53 10^6/MM^3 10*6/mm3 4.04-5.4 8 hemoglobin, blood 14.8 g/dL 12.0-16.0 Lab Report: CBC-QUEST, COMPREHENSIVE MET ABOLIC PANEL, LIPID PANEL - Chemistry cholesterol, serum 192 mg/dL 835-266 0486/02/20 HDL cholesterol, serum 31 mg/dL > OR [...] 11 .0-15.0 platelet count 218 THOUSAND/UL 10*3/mm3 519-380 4138/02/20 mean platelet volume 9.7 fL 7.5-12.5 Lab Report: Chlamydia/GC APTIMA/09081 - Lab chlamydia DNA probe NOT DETECTED NOT DETECTED Lab Report: Chlamydia/GC APTIMA/54083 - Microbiology Neisseria gonorrhoeae DNA probe NOT DETECTED NO T DETECTED Lab Report: Comp. Metabolic Panel, Thyro id Stimulating Hormone (L), Eryt ... - Chemistry sodium, serum 137 mmol/L 085-146 5156/05/27 creatinine, serum 0.70 mg/dL 0.55-1.30 alanine aminotransferase [...] >=1.030 1.000-1.030 pH, urine, semiquantitative 5.5 5.0-8.5 urobilinogen, urine, semiquantitative (dipstick) 0.2 Normal leukocyte esterase, urine, by dipstick Negative Negative nitrite, urine, semiquantitative Negative Neg ative Encounters Code Encounter Date Provider Facility CPT-98918 Level 4 Est. Patient 11:08:12 SEED CLEANING MANAGER Checo Conklin MD [facility] CPT-79851 Level 4 Est. Patient 16:06:48 SEED CLEANING MANAGER Checo Conklin MD [facility] CPT-00046 Level 3 Est. Patient 09:11:49 CDT Efren almendarez [facility] CPT-56860 Level 2 Est. Patient 19:53:27 CDT Tanner hill MD [facility] CPT-92015 Level 3 Est. Patient 09:15:34 CDT Efren almendarez [facility] CPT-72236 Level 3 Est. Patient 11:28:51 SEED CLEANING MANAGER Efren almendarez [facility] CPT-23835 Level 4 Est. Patient 13:55:46 SEED CLEANING MANAGER Checo Conklin MD [facility] CPT-23654 Level 4 Est. Patient 17:10:53 CDT Checo Conklin MD [facility] CPT-34558 Level 3 Est. Patient 15:56:22 CDT Checo Conklin MD [facility] CPT-80265 Level 3 Est. Patient 15:29:07 CDT Checo Conklin MD [facility] CPT-79571 Level 3 Est. Patient 14:38:41 CDT Checo Conklin MD [facility] CPT-94440 Level 3 Est. Patient 15:22:03 SEED CLEANING MANAGER Thomas reynolds DO [facility] CPT-97693 Level 3 Est. Patient 13:34:17 SEED CLEANING MANAGER Checo Conklin MD [facility] CPT-65624 Level 3 Est. Patient 12:29:32 CDT Dangelo arroyo MD [facility] CPT-35884 Level 3 Est. Patient 16:53:02 CDT Checo Conklin MD [facility] CPT-09763 Level 3 Est. Patient 16:37:13 CDT Checo Conklin MD [facility] CPT-17585 Level 3 Est. Patient 16:16:59 CDT Paul Hamlin MD [facility] CPT-02385 Level 3 Est. Patient 14:20:13 CDT Dangelo arroyo MD [facility] CPT-78576 Level 4 Est. Patient 11:29:33 CDT Checo Conklin MD [facility] CPT-65822 Level 3 Est. Patient 17:08:31 CDT Checo Conklin MD [facility] CPT-51200 Level 3 Est. Patient 16:50:42 SEED CLEANING MANAGER Checo Conklin MD [facility] CPT-34851 Level 4 Est. Patient 09:26:08 SEED CLEANING MANAGER Checo Conklin MD [facility] CPT-00480 Level 3 Est. Patient 11:37:10 CDT Checo Conklin MD [facility] CPT-51187 Level 4 Est. Patient 14:07:38 CDT Checo Conklin MD [facility] CPT-69778 Level 3 Est. Patient 09:54:41 CDT Checo Conklin MD [facility] CPT-78563 Level 3 Est. Patient 11:10:54 CDT Paul Hamlin MD [facility] CPT-26053 Level 3 Est. Patient 14:16:56 SEED CLEANING MANAGER Checo Conklin MD [facility] CPT-14916 Level 3 Est. Patient 11:04:11 SEED CLEANING MANAGER Checo Conklin MD [facility] CPT-21424 Level 3 Est. Patient 17:09:26 CDT Dangelo arroyo MD [facility] CPT-45206 Level 3 Est. Patient 16:54:37 CDT Checo Conklin MD [facility] Procedures Code Procedure Name Date Entry Date Standard Desc ription CPT-32565 UA w micro - LAB USE ONLY 17:06:46 CDT 2015 CPT-93247 [facility] Qual - LAB USE ONLY 17:06:46 CDT 05/06 CPT-47874 CMP - LAB USE ONLY 17:06:46 CDT CPT-10893 CBC with Diff - LAB USE ONLY 17:06:45 CDT 2 CPT-41193 Venipuncture Draw Fee 17:06:45 CDT CPT-LR Lesion Removal 19:53:27 CDT CPT-OV Office Visit 11:31:28 CDT CPT-69067 Tubersol 09:39:29 CDT CPT-J2550 Phenergan 25 mg (Promethazine) 13:59:02 SEED CLEANING MANAGER CPT-J1885 Toradol 60 mg (Ketorolac) 13:59:02 SEED CLEANING MANAGER 2012
--- OUTSIDE RECORDS SUMMARY | 2019-09-29 02:02 | XMS REPORT | Clinical Summary ---
Author Author Admin, Bethany Gonzales Organization [employer] Address Unknown Phone Unavailable Allergies, Adverse Reactions, [...] Conklin MD Mastodynia Sinusitis 461.9 Resolved Checo Conlkin MD Acute sinusitis, unspecified Insect bite 919.4 [...] TABS 1.5 po qd PAROX ETINE HCL 53147898110 Active Checo Conklin MD Active FLUTICASONE PROPIONATE 50 MCG/ACT NASAL SUSP 2 sprays/ nostril qd PRN Congestion/Allergies FLUTICASONE PROPIONATE 4391138971 5 No Longer Active Checo Conklin MD Active AMOXICILLIN 500 MG ORAL CAPS 2 po BID x 10 days 09/12 AMOXICILLIN 06499815406 No Longer Active Checo Conklin MD Activ e MIRALAX ORAL POWD 8.5 to 17g po qd PRN Constipation POLYETHYLENE GLYCOL 3350 37485546741 Active Checo Conklin MD Active CLARITIN 10 MG TAB 1 tablet by mouth daily as needed for allergi es LORATADINE 36663820000 No Longer Active Checo Conklin MD Active BACTRIM DS 800-160 MG TAB 1 tab by mouth twice daily 2 TRIMETHOPRIM-SULFAMETHOXAZOLE 19476460505 No Longer Active Tanner Carrillo MD Active DIFLUCAN 150 MG TAB 1 tablet by mouth qod FLUCO NAZOLE 29039071584 No Longer Active Efren Medel APRN Active AZITHROMYCIN 250 MG TABS 2 po qd x 1 day, then 1 po qd x 4 days AZITHROMYCIN 42123445235 No Longer Active Jimarine Medel SEWER REPAIRER Active FLAGYL 500 MG TAB 1 tablet by mouth bid METRONI DAZOLE 87377506209 No Longer Active Checo Conklin MD Active FOCALIN XR 10 MG ORAL [id number] 1 po q a.m. DEX METHYLPHENIDATE HCL 39294053427 Active Checo Conklin MD Active MAGNESIUM CITRATE 1.745 GM/30ML ORAL SOLN 150ml po BID PRN C onstipation MAGNESIUM CITRATE 99600874457 No Longer Active Checo Conklin MD Active BACTROBAN 2 % CREAM Apply to affected area BID for up to 10 days MUPIROCIN CALCIUM 37476817019 No Longer Active Checo Conklin MD Active HYDROCODONE-ACETAMINOPHEN 5-325 MG TABS 1 tab by mouth every 6 hours as needed HYDROCODONE-ACETAMINOPHEN 15100910222 No Longer Activ e Checo Conklin MD Active IBUPROFEN 800 MG TABS 1 tab every 8 hours with food 20 31/03/21 IBUPROFEN 81105738314 No Longer Active Checo Conklin MD Activ e DIFLUCAN 150 MG TAB 1 tablet by mouth if needed, hold until symptoms start FLUCONAZOLE 78455169587 No Longer Active Checo Ortiz MD Active BACTRIM DS 800-160 MG TAB 1 tab by mouth twice daily 2 TRIMETHOPRIM-SULFAMETHOXAZOLE 51520459706 No Longer Active Corry leong LPN Active HYDROCODONE-ACETAMINOPHEN 5-325 MG TABS 0.5 to 1 tab b y mouth every 6 hours as needed HYDROCODONE-ACETAMINOPHEN 14966514249 No Longer Active Checo Conklin MD Active ONDANSETRON [address] one tablet on tongue and allow to dissolve every 6 hours as needed for vomitting ONDANSETRO N 42887047150 No Longer Active Checo Conklin MD Active COMPRO 25 MG RECTAL SUPP insert or apply one supposit ory rectally as directed every 12 hours as needed for nausea PROCHLORPERA ZINE 23497553356 No Longer Active Checo Conklin MD Active SUMATRIPTAN SUCCINATE 100 MG ORAL TABS Take one PRN for migrane SUMATRIPTAN SUCCINATE 91346667273 No Longer Active Checo Conklin MD Active TRAVEL SICKNESS 25 MG ORAL CHEW chew and swallow one t ablet every 6 hours as needed MECLIZINE HCL 72846550960 No Longer Active Joe Conklin MD Active BUPROPION HCL ER (SR) 100 MG ORAL [id number] take one t ablet by mouth one time daily for one week then take 1 two times daily BUPROPION HCL 12615722579 No Longer Active Checo Conklin MD Activ e TERBINAFINE HCL 250 MG ORAL TABS take one table PO one time abran y TERBINAFINE HCL 31656220180 No Longer Active Checo Conklin MD Active METOCLOPRAMIDE HCL 10 MG ORAL TABS take one PO tid PRN nausea 20 29/12/14 METOCLOPRAMIDE HCL 57048201346 No Longer Active Checo Conklin MD Active DICLOFENAC SODIUM 75 MG TBEC 1 tablet by mouth twice daily P RN Knee pain DICLOFENAC SODIUM 49176699546 No Longer Active Checo Conklin MD Active LAMISIL 250 MG TAB 1 po qd TERBINAFINE HCL 548 87674567 No Longer Active Checo Conklin MD Active REGLAN 10 MG TAB 1 po TID PRN Nausea METOCLOPRA MIDE HCL 53545030736 No Longer Active Checo Conklin MD Active CELEXA 20 MG TABS 1 tablet by mouth daily CITALOPRAM HYDROBROMIDE 08692646899 No Longer Active Checo Conklin MD Activ e AZITHROMYCIN 250 MG TABS 2 po qd x 1 day, then 1 po qd x 4 days AZITHROMYCIN 64598883209 No Longer Active Checo Conklin MD Active HYDROCODONE-ACETAMINOPHEN 5-325 MG TABS 1 po q 6hr PRN Pain 2013 HYDROCODONE-ACETAMINOPHEN 28578190455 No Longer Active Lenora Conklin MD Active PHENAZOPYRIDINE HCL 200 MG TABS take 1 tab po TID for bladder pa in PHENAZOPYRIDINE HCL 03131596850 No Longer Active Checo Joshua Active CIPRO 500 MG TAB 1 tablet by mouth twice daily CIPROFLOXACIN HCL 00360341474 No Longer Active Dangelo Rangel MD Active HYDROCODONE-ACETAMINOPHEN 5-325 MG TABS 1/2 to 1 po q 4 hour s prn cough HYDROCODONE-ACETAMINOPHEN 70029230095 No Longer Activ e Dangelo Rangel MD Active BACTRIM DS 800-160 MG TABS 1 po BID x 7 days 0 SULFAMETHOXAZOLE-TRIMETHOPRIM 50138078354 No Longer Active Checo Conklin MD Active PREDNISONE 20 MG TAB 2 tabs daily for 3 days, 1 t ab daily for 3 days, 1/2 tab daily for 2 days PREDNISONE 27299506113 No Longer Active Checo Conklin MD Active TRIAMCINOLONE ACETONIDE 0.1 % OINT Apply to affected a reas TID for up to 2 weeks TRIAMCINOLONE ACETONIDE 67051275521 No Longer A ctive Checo Conklin MD Active CEFDINIR 300 MG CAPS by mouth twice a day CEFDI JAZZY 67881050599 No Longer Active Dangelo Rangel MD Active BUPROPION HCL (SMOKING DETER) 150 MG [id number] 1 a day for 1 week then 1 twice a day BUPROPION HCL (SMOKING DETER) 79751601223 No Lo nger Active Checo Conklin MD Active SIMVASTATIN 20 MG TABS 1 po qd SIMVASTATIN 2607151864 5 Active Checo Conklin MD Active CHANTIX STARTING MONTH KARTHIK 0.5 MG X 11 & 1 MG X 42 TAB S 0.5mg daily for 3 days, then 0.5mg BID for 4 days, then 1mg BID VARENICLINE TARTRATE 88351074011 No Longer Active Checo Conklin MD Activ e XANAX 0.5 MG TABS 1 po BID PRN anxiety ALPRAZOLAM 55952093240 Active Checo Conklin MD Active CONCERTA 18 MG CR-TABS 1 po q a.m. METHYLPHENID ATE HCL 21959458186 No Longer Active Checo Conklin MD Active AMBIEN 5 MG TAB 1 po qHS PRN Insomnia ZOLPIDEM TARTRATE 45769873037 Active Checo Conklin MD Active TRAZODONE HCL 100 MG TAB 0.5 to 1 po qHS PRN Insomnia TRAZODONE HCL 46965037026 No Longer Active Checo Conklin MD Acti ve FIORICET 325-50-40 MG TAB 1 tablet by mouth four times daily as needed [id number] 40988695578 No Longer Active Checo Conklin MD Active PHENERGAN CREAM* 25mg applied to wrist q6hr PRN Nausea PHENERGAN CREAM* No Longer Active Checo Conklin MD A ctive FLONASE 50 MCG/ACT SUSP 1 spray each nostril am and hs FLUTICASONE PROPIONATE 49039236551 No Longer Active Checo Conklin MD Activ e ANTIPYRINE-BENZOCAINE 5.4-1.4 % SOLN 1-2 drops in affected ear BENZOCAINE-ANTIPYRINE 38893627119 No Longer Active Checo Conklin MD Active CEFDINIR 300 MG CAPS 1 po bid CEFDINIR 75983155 120 No Longer Active Checo Conklin MD Active PREDNISONE 20 MG TAB 2 tabs daily for 3 days, 1 t ab daily for 3 days, 1/2 tab daily for 2 days PREDNISONE 52307834445 No Longer Active Aracelis Conklin MD Active AZITHROMYCIN 250 MG TABS 2 po qd x 1 day, then 1 po qd x 4 days AZITHROMYCIN 63809266285 No Longer Active Checo Conklin MD Active PREDNISONE 20 MG TAB 2 tabs daily for 3 days, 1 t ab daily for 3 days, 1/2 tab daily for 2 days PREDNISONE 40336370943 No Longer Active Checo Conklin MD Active ZITHROMAX Z-KARTHIK 250 MG TABS 2 today, then 1 daily for 4 days 201 09/18/28 AZITHROMYCIN 15253667112 No Longer Active Paul Hamlin MD Active FOCALIN XR 10 MG [id number] 1 po q a.m. D EXMETHYLPHENIDATE HCL 66777574384 No Longer Active Paul Hamlin MD Activ e PERCOCET 10-325 MG TABS 1 tablet every 6 hours as needed for pain OXYCODONE-ACETAMINOPHEN 81584090439 No Longer Active Paul Hamlin MD Active LORTAB 5 5-500 MG TABS 1/2 to 1 tablet by mouth flaquito ry 4 hours as needed for pain HYDROCODONE-ACETAMINOPHEN 41482264495 No Longer Active Checo Conklin MD Active FOCALIN XR 15 MG [id number] 1 po q a.m. D EXMETHYLPHENIDATE HCL 79938224409 No Longer Active Checo Conklin MD Activ e ZOFRAN ODT 4 MG TBDP 1 po q6hr PRN Nausea ONDAN SETRON 25648499760 No Longer Active Checo Conklin MD Active PERCOCET 5-325 MG TABS 1 tablet by mouth every 6 hours as needed OXYCODONE-ACETAMINOPHEN 36572643742 No Longer Active Checo Conklin MD Active PYRIDIUM 200 MG TABS take 1 tab po TID prn urinary pain. 0 PHENAZOPYRIDINE HCL 84545585395 No Longer Active Checo Conklin MD Active FLUCONAZOLE 150 MG TABS take 1 tab po qday once 0 04/06 FLUCONAZOLE 76183012755 No Longer Active Dangelo Rangel MD Acti ve CIPRO 500 MG TAB 1 tablet by mouth twice daily CIPROFLOXACIN HCL 73525586284 No Longer Active Dangelo Rangel MD Active PYRIDIUM 200 MG TABS take 1 tab po TID prn urinary pain. 0 PYRIDIUM 200 MG TABS 5915247 PHENAZOPYRIDINE HCL Inactive PERCOCET 5-325 MG TABS 1 tablet by mouth every 6 hours as needed PERCOCET 5-325 MG TABS 5598107 OXYCODONE-ACETAMINOPHEN I nactive ZOFRAN ODT 4 MG TBDP 1 po q6hr PRN Nausea ZOFRAN ODT 4 MG TBDP 557072 ONDANSETRON Inactive FOCALIN XR 15 MG [id number] 1 po q a.m. F OCALIN XR 15 MG [id number] DEXMETHYLPHENIDATE HCL Inactive LORTAB 5 5-500 MG TABS 1/2 to 1 tablet by mouth flaquito ry 4 hours as needed for pain LORTAB 5 5-500 MG TABS 409607 HYDROCODONE-A CETAMINOPHEN Inactive PERCOCET 10-325 MG TABS 1 tablet every 6 hours as needed for pain PERCOCET 10-325 MG TABS 4359535 OXYCODONE-ACETAMINOPHEN Inactive FOCALIN XR 10 MG [id number] 1 po q a.m. F OCALIN XR 10 MG [id number] DEXMETHYLPHENIDATE HCL Inactive CEFDINIR 300 MG CAPS 1 po bid CEFDINIR 300 MG CAPS 20 0346 CEFDINIR Inactive ANTIPYRINE-BENZOCAINE 5.4-1.4 % SOLN 1-2 drops in affected ear ANTIPYRINE-BENZOCAINE 5.4-1.4 % SOLN 916135 BENZOCAINE-ANTIPYRINE I nactive FLONASE 50 MCG/ACT SUSP 1 spray each nostril am and hs FLONASE 50 MCG/ACT SUSP 0333544 FLUTICASONE PROPIONATE Inactive PHENERGAN CREAM* 25mg applied to wrist q6hr PRN Nausea PHENERGAN CREAM* Inactive FIORICET 325-50-40 MG TAB 1 tablet by mouth four times daily as needed FIORICET 325-50-40 MG TAB ACETAMINOPHEN-C AFF-BUTALBITAL Inactive TRAZODONE HCL 100 MG TAB 0.5 to 1 po qHS PRN Insomnia TRAZODONE HCL 100 MG TAB 359230 TRAZODONE HCL Inactive CONCERTA 18 MG CR-TABS [...] s prn cough HYDROCODONE-ACETAMINOPHEN 5-325 MG TABS 113221 HYDROCODONE-ACETAMINOPHEN Inactive PHENAZOPYRIDINE HCL 200 MG TABS take 1 tab po TID for bladder pa in PHENAZOPYRIDINE HCL 200 MG TABS 7403661 PHENAZOPYRIDINE HCL Inactive HYDROCODONE-ACETAMINOPHEN 5-325 MG TABS 1 po q 6hr PRN Pain 2013 HYDROCODONE-ACETAMINOPHEN 5-325 MG TABS 204732 HYDROCODONE-ACETAMINOPHEN Inactive CELEXA 20 MG TABS 1 tablet by mouth daily CELEXA 20 MG TABS 093786 CITALOPRAM HYDROBROMIDE Inactive REGLAN 10 MG TAB 1 po TID PRN Nausea REGLAN 10 MG TAB 582911 METOCLOPRAMIDE HCL Inactive LAMISIL 250 MG TAB 1 po qd LAMISIL 250 MG TAB 597860 TERBINAFINE HCL Inactive DICLOFENAC SODIUM 75 MG TBEC 1 tablet by mouth twice daily P RN Knee pain DICLOFENAC SODIUM 75 MG TBEC 129650 DICLOFENAC S ODIUM Inactive METOCLOPRAMIDE HCL 10 MG ORAL TABS take one PO tid PRN nausea 20 29/12/14 METOCLOPRAMIDE HCL 10 MG ORAL TABS 660593 METOCLOPRAMID E HCL Inactive TERBINAFINE HCL 250 MG ORAL TABS take one table PO one time abran y TERBINAFINE HCL 250 MG ORAL TABS 000985 TERBINAFINE HCL Inactive BUPROPION HCL ER (SR) 100 MG ORAL [id number] take one t ablet by mouth one time daily for one week then take 1 two times daily BUPROPION HCL ER (SR) 100 MG ORAL [id number] BUPROPION HCL Inacti ve TRAVEL SICKNESS 25 MG ORAL CHEW chew and swallow one t ablet every 6 hours as needed TRAVEL SICKNESS 25 MG ORAL CHEW 667092 MECLIZINE HCL Inactive SUMATRIPTAN SUCCINATE 100 MG ORAL TABS Take one PRN for migrane SUMATRIPTAN SUCCINATE 100 MG ORAL TABS 857484 SUMATRIPT AN SUCCINATE Inactive COMPRO 25 MG RECTAL SUPP insert or apply one supposit ory rectally as directed every 12 hours as needed for nausea COMP RO 25 MG RECTAL SUPP 608588 PROCHLORPERAZINE Inactive ONDANSETRON [address] one tablet on tongue and allow to dissolve every 6 hours as needed for vomitting ON DANSETRON 8 MG ORAL TBDP 488110 ONDANSETRON Inactive HYDROCODONE-ACETAMINOPHEN 5-325 MG TABS 0.5 to 1 tab b y mouth every 6 hours as needed HYDROCODONE-ACETAMINOPHEN 5-325 MG TABS 8 73800 HYDROCODONE-ACETAMINOPHEN Inactive BACTRIM DS 800-160 MG TAB 1 tab by mouth twice daily 2 BACTRIM DS 800-160 MG TAB 19820918 TRIMETHOPRIM-SULFAMETHOXAZOLE Inac tive DIFLUCAN 150 MG TAB 1 tablet by mouth if needed, hold until symptoms start DIFLUCAN 150 MG TAB 19760325 FLUCONAZOLE Inactive IBUPROFEN 800 MG TABS 1 tab every 8 hours with food 31/03/21 IBUPROFEN 800 MG TABS 731161 IBUPROFEN Inactive HYDROCODONE-ACETAMINOPHEN 5-325 MG TABS 1 tab by mouth every 6 hours as needed HYDROCODONE-ACETAMINOPHEN 5-325 MG TABS 588703 HYDROCODONE-ACETAMINOPHEN Inactive BACTROBAN 2 % CREAM Apply to affected area BID for up to 10 days BACTROBAN 2 % CREAM 235934 MUPIROCIN CALCIUM Inactive MAGNESIUM CITRATE 1.745 GM/30ML ORAL SOLN 150ml po BID PRN C onstipation MAGNESIUM CITRATE 1.745 GM/30ML ORAL SOLN 964737 0 MAGNESIUM CITRATE Inactive DIFLUCAN 150 MG TAB 1 tablet by mouth qod DIFLUCAN 150 MG TAB 963554 FLUCONAZOLE Inactive BACTRIM DS 800-160 MG TAB 1 tab by mouth twice daily 2 BACTRIM DS 800-160 MG TAB 19820918 TRIMETHOPRIM-SULFAMETHOXAZOLE Inac tive CLARITIN 10 MG TAB 1 tablet by mouth daily as needed for allergi es CLARITIN 10 MG TAB 059911 LORATADINE Inactive FLUTICASONE PROPIONATE 50 MCG/ACT NASAL SUSP 2 sprays/ nostril qd PRN Congestion/Allergies FLUTICASONE PROPION ATE 50 MCG/ACT NASAL SUSP 5399189 FLUTICASONE PROPIONATE Inactive CIPRO 500 MG TAB 1 tablet by mouth twice daily CIPRO 500 MG TAB 848603 CIPROFLOXACIN HCL Inactive FLUCONAZOLE 150 MG TABS take 1 tab po qday once 04/06 FLUCONAZOLE 150 MG TABS 977785 FLUCONAZOLE Inactive ZITHROMAX Z-KARTHIK 250 MG TABS 2 today, then 1 daily for 4 days 201 09/18/28 ZITHROMAX Z-KARTHIK 250 MG TABS 045342 AZITHROMYCIN Inac tive PREDNISONE 20 MG TAB 2 tabs daily for 3 days, 1 t ab daily for 3 days, 1/2 tab daily for 2 days PREDNISONE 20 MG TAB 792387 PREDNISON E Inactive AZITHROMYCIN 250 MG TABS 2 po qd x 1 day, then 1 po qd x 4 days AZITHROMYCIN 250 MG TABS 179398 AZITHROMYCIN Inactiv e PREDNISONE 20 MG TAB 2 tabs daily for 3 days, 1 t ab daily for 3 days, 1/2 tab daily for 2 days PREDNISONE 20 MG TAB 451416 PREDNISON E Inactive CEFDINIR 300 MG CAPS by mouth twice a day CEFDINIR 300 MG CAPS 677094 CEFDINIR Inactive TRIAMCINOLONE ACETONIDE 0.1 % OINT Apply to affected a reas TID for up to 2 weeks TRIAMCINOLONE ACETONIDE 0.1 % OINT 793925 6 TRIAMCINOLONE ACETONIDE Inactive PREDNISONE 20 MG TAB 2 tabs daily for 3 days, 1 t ab daily for 3 days, 1/2 tab daily for 2 days PREDNISONE 20 MG TAB 547921 PREDNISON E Inactive BACTRIM DS 800-160 MG TABS 1 po BID x 7 days 0 BACTRIM DS 800-160 MG TABS 245957 SULFAMETHOXAZOLE-TRIMETHOPRIM Inactive CIPRO 500 MG TAB 1 tablet by mouth twice daily CIPRO 500 MG TAB 961018 CIPROFLOXACIN HCL Inactive AZITHROMYCIN 250 MG TABS 2 po qd x 1 day, then 1 po qd x 4 days AZITHROMYCIN 250 MG TABS 831408 AZITHROMYCIN Inactiv e FLAGYL 500 MG TAB 1 tablet by mouth bid FLAGYL 500 MG TAB 345540 METRONIDAZOLE Inactive AZITHROMYCIN 250 MG TABS 2 po qd x 1 day, then 1 po qd x 4 days AZITHROMYCIN 250 MG TABS 888149 AZITHROMYCIN Inactiv e AMOXICILLIN 500 MG ORAL CAPS 2 po BID x 10 days 09/12 AMOXICILLIN 500 MG ORAL CAPS 556321 AMOXICILLIN Inactive Immunizations Vaccine Administration Date Value [...] PANEL - Chemistry cholesterol, serum 192 mg/dL 458-664 5105/02/20 HDL cholesterol, serum 31 mg/dL > OR [...] 11 .0-15.0 platelet count 218 THOUSAND/UL 10*3/mm3 607-840 7456/02/20 mean platelet volume 9.7 fL 7.5-12.5 Encounters Code Encounter Date Provider Facility CPT-67561 Level 3 Est. Patient 13:05:44 CDT Paul Hamlin MD [facility] CPT-78199 Level 3 Est. Patient 11:29:55 CDT Checo Conklin MD [facility] CPT-51023 Level 4 Est. Patient 11:08:12 SALES SUPPORT ENGINEER Checo Conklin MD [facility] CPT-81049 Level 4 Est. Patient 16:06:48 SALES SUPPORT ENGINEER Checo Conklin MD [facility] CPT-03850 Level 3 Est. Patient 09:11:49 CDT Efren almendarez APRN [facility] CPT-05941 Level 2 Est. Patient 19:53:27 CDT Tanner hill MD [facility] CPT-82895 Level 3 Est. Patient 09:15:34 CDT Efren almendarez [facility] CPT-90510 Level 3 Est. Patient 11:28:51 SALES SUPPORT ENGINEER Efren almendarez [facility] CPT-93801 Level 4 Est. Patient 13:55:46 SALES SUPPORT ENGINEER Checo Conklin MD [facility] CPT-00676 Level 4 Est. Patient 17:10:53 CDT Checo Conklin MD [facility] CPT-18121 Level 3 Est. Patient 15:56:22 CDT Checo Conklin MD [facility] CPT-29865 Level 3 Est. Patient 15:29:07 CDT Checo Conklin MD [facility] CPT-75657 Level 3 Est. Patient 14:38:41 CDT Checo Conklin MD [facility] CPT-03671 Level 3 Est. Patient 15:22:03 SALES SUPPORT ENGINEER Thomas reynolds DO [facility] CPT-47142 Level 3 Est. Patient 13:34:17 SALES SUPPORT ENGINEER Checo Conklin MD [facility]-77174 Level 3 Est. Patient 12:29:32 CDT Dangelo arroyo MD [facility]-85181 Level 3 Est. Patient 16:53:02 CDT Checo Conklin MD [facility] CPT-08375 Level 3 Est. Patient 16:37:13 CDT Checo Conklin MD [facility] CPT-44821 Level 3 Est. Patient 16:16:59 CDT Paul Hamlin MD [facility]-13674 Level 3 Est. Patient 14:20:13 CDT Dangelo arroyo MD [facility] CPT-03741 Level 4 Est. Patient 11:29:33 CDT Checo Conklin MD [facility] CPT-77607 Level 3 Est. Patient 17:08:31 CDT Checo Conklin MD [facility] CPT-51923 Level 3 Est. Patient 16:50:42 SALES SUPPORT ENGINEER Checo Conklin MD [facility] CPT-03316 Level 4 Est. Patient 09:26:08 SALES SUPPORT ENGINEER Checo Conklin MD [facility] CPT-25787 Level 3 Est. Patient 11:37:10 CDT Checo Conklin MD [facility] CPT-54388 Level 4 Est. Patient 14:07:38 CDT Checo Conklin MD [facility] CPT-38601 Level 3 Est. Patient 09:54:41 CDT Checo Conklin MD [facility] CPT-10510 Level 3 Est. Patient 11:10:54 CDT Paul Hamlin MD [facility] CPT-70176 Level 3 Est. Patient 14:16:56 SALES SUPPORT ENGINEER Checo Conklin MD [facility] CPT-69093 Level 3 Est. Patient 11:04:11 SALES SUPPORT ENGINEER Checo Conklni MD [facility] CPT-29716 Level 3 Est. Patient 17:09:26 CDT Dangelo arroyo MD [facility] CPT-12456 Level 3 Est. Patient 16:54:37 CDT Checo Conklin MD [facility] Procedures Code Procedure Name Date Entry Date Standard Desc ription CPT-10465 UA w micro - LAB USE ONLY 17:06:46 CDT 2015 CPT-46125 BHCG Qual - LAB USE ONLY 17:06:46 CDT 05/06 CPT-65422 CMP - LAB USE ONLY 17:06:46 CDT CPT-69827 CBC with Diff - LAB USE ONLY 17:06:45 CDT 2 CPT-17416 Venipuncture Draw Fee 17:06:45 CDT CPT-LR Lesion Removal 19:53:27 CDT CPT-OV Office Visit 11:31:28 CDT CPT-21566 Tubersol 09:39:29 CDT CPT-J2550 Phenergan 25 mg (Promethazine) 13:59:02 SALES SUPPORT ENGINEER CPT-J1885 Toradol 60 mg (Ketorolac) 13:59:02 SALES SUPPORT ENGINEER 2012
--- OUTSIDE RECORDS SUMMARY | 2019-09-29 02:02 | XMS REPORT | Clinical Summary ---
Author Author Admin, [address] [facility] Address Unknown Phone Unavailable Allergies, Adverse Reactions, [...] TABLET 1.5 po qd PAR OXETINE HCL [id number] Active Checo Conklin MD Active FLUTICASONE PROPIONATE 50 MCG/ACT NASAL SUSPENSION 2 s prays/nostril qd PRN Congestion/Allergies FLUTICASONE PROPIONATE [id number] 9 No Longer Active Checo Conklin MD Active AMOXICILLIN 500 MG ORAL CAPSULE 2 po BID x 10 days 201 01/15/27 AMOXICILLIN 88869163602 No Longer Active Checo Conklin MD Activ e MIRALAX ORAL POWDER 8.5 to 17g po qd PRN Constipation POLYETHYLENE GLYCOL 3350 63638786585 Active Checo Conklin MD Active CLARITIN 10 MG ORAL TABLET 1 tablet by mouth daily as needed for allergies LORATADINE 76816530230 No Longer Active Checo Ortiz MD Active BACTRIM DS 800-160 MG ORAL TABLET 1 tab by mouth twice daily 201 12/19/26 TRIMETHOPRIM-SULFAMETHOXAZOLE 21323315951 No Longer Active Ragini Carrillo MD Active DIFLUCAN 150 MG ORAL TABLET 1 tablet by mouth qod 2015 FLUCONAZOLE 14785935707 No Longer Active Efren Medel APRN Act mike AZITHROMYCIN 250 MG ORAL TABLET 2 po qd x 1 day, then 1 po q d x 4 days AZITHROMYCIN 70261100169 No Longer Active Efren flores [employer]ER Active FLAGYL 500 MG ORAL TABLET 1 tablet by mouth bid 04/13 METRONIDAZOLE 70277663816 No Longer Active Checo Conklin MD Acti ve FOCALIN XR 10 MG ORAL CAPSULE EXTENDED RELEASE 24 HOUR 1 po q a.m. DEXMETHYLPHENIDATE HCL 10062389006 Active Checo Conklin MD Active MAGNESIUM CITRATE 1.745 GM/30ML ORAL SOLUTION 150ml po BID P RN Constipation MAGNESIUM CITRATE 01857380922 No Longer Active Checo Conklin MD Active BACTROBAN 2 % EXTERNAL CREAM Apply to affected area BID for up to 10 days MUPIROCIN CALCIUM 67086742802 No Longer Active Checo Conklin MD Active HYDROCODONE-ACETAMINOPHEN 5-325 MG ORAL TABLET 1 tab b y mouth every 6 hours as needed HYDROCODONE-ACETAMINOPHEN 68067105524 No Longer Active Checo Conklin MD Active IBUPROFEN 800 MG ORAL TABLET 1 tab every 8 hours with food 03/20 IBUPROFEN 63989348615 No Longer Active Checo Conklin MD Active DIFLUCAN 150 MG ORAL TABLET 1 tablet by mouth if neede d, hold until symptoms start FLUCONAZOLE 37932688233 No Longer Active Checo Conklin MD Active BACTRIM DS 800-160 MG ORAL TABLET 1 tab by mouth twice daily 201 11/23/03 TRIMETHOPRIM-SULFAMETHOXAZOLE 56632540561 No Longer Active Bonnie Méndez LPN Active HYDROCODONE-ACETAMINOPHEN 5-325 MG ORAL TABLET 0.5 to 1 tab by mouth every 6 hours as needed HYDROCODONE-ACETAMINOPHEN 26072414217 No Longer Active Checo Conklin MD Active ONDANSETRON 8 MG ORAL TABLET DISINTEGRATING place one tablet on tongue and allow to dissolve every 6 hours as needed for vomitting ONDANSETRON 68223681401 No Longer Active Checo Conklin MD Activ e COMPRO 25 MG RECTAL SUPPOSITORY insert or apply one garza ppository rectally as directed every 12 hours as needed for nausea PROCHLORPERAZINE 92834562064 No Longer Active Checo Conklin MD A ctive SUMATRIPTAN SUCCINATE 100 MG ORAL TABLET Take one PRN for migran e SUMATRIPTAN SUCCINATE 50504204161 No Longer Active Checo Conklin MD Active TRAVEL SICKNESS 25 MG ORAL TABLET CHEWABLE chew and sw allow one tablet every 6 hours as needed MECLIZINE HCL 42764646920 No Longer A ctive Checo Conklin MD Active BUPROPION HCL ER (SR) 100 MG ORAL TABLET EXTENDED RELE ASE 12 HOUR take one tablet by mouth one time daily for one week then take 1 two times daily BUPROPION HCL 59489013154 No Longer Active Checo gallagher MD Active TERBINAFINE HCL 250 MG ORAL TABLET take one table PO one time da moises TERBINAFINE HCL 45614120069 No Longer Active Checo Conklin MD Active METOCLOPRAMIDE HCL 10 MG ORAL TABLET take one PO tid PRN nausea METOCLOPRAMIDE HCL 42987007857 No Longer Active Checo Conklin MD Active DICLOFENAC SODIUM 75 MG ORAL TABLET DELAYED RELEASE 1 tablet by mouth twice daily PRN Knee pain DICLOFENAC SODIUM 61744865716 No Longer Active Checo Conklin MD Active LAMISIL 250 MG ORAL TABLET 1 po qd TERBINAFI NE HCL 85598913239 No Longer Active Checo Conklin MD Active REGLAN 10 MG ORAL TABLET 1 po TID PRN Nausea 3 METOCLOPRAMIDE HCL 66950673364 No Longer Active Checo Conklin MD Active CELEXA 20 MG ORAL TABLET 1 tablet by mouth daily 09/26 CITALOPRAM HYDROBROMIDE 63504464722 No Longer Active Checo Conklin MD Active AZITHROMYCIN 250 MG ORAL TABLET 2 po qd x 1 day, then 1 po q d x 4 days AZITHROMYCIN 87999212631 No Longer Active Checo Ortiz MD Active HYDROCODONE-ACETAMINOPHEN 5-325 MG ORAL TABLET 1 po q 6hr PRN Pa in HYDROCODONE-ACETAMINOPHEN 92248534072 No Longer Active Lenora Conklin MD Active PHENAZOPYRIDINE HCL 200 MG ORAL TABLET take 1 tab po TID for bladder pain PHENAZOPYRIDINE HCL 92075532727 No Longer Active Joe Conklin MD Active CIPRO 500 MG ORAL TABLET 1 tablet by mouth twice daily CIPROFLOXACIN HCL 57280860694 No Longer Active Dangelo Rangel MD Active HYDROCODONE-ACETAMINOPHEN 5-325 MG ORAL TABLET 1/2 to 1 po q 4 hours prn cough HYDROCODONE-ACETAMINOPHEN 86915110189 No Longer Activ e Dangelo Rangel MD Active BACTRIM DS 800-160 MG ORAL TABLET 1 po BID x 7 days 29/04/10 SULFAMETHOXAZOLE-TRIMETHOPRIM 69952389090 No Longer Active Checo Conklin MD Active PREDNISONE 20 MG ORAL TABLET 2 tabs daily for 3 days, 1 tab daily for 3 days, 1/2 tab daily for 2 days PREDNISONE 68595351727 No Longer Active Checo Conklin MD Active TRIAMCINOLONE ACETONIDE 0.1 % EXTERNAL OINTMENT Apply to affected areas TID for up to 2 weeks TRIAMCINOLONE ACETONIDE 23545550440 No Longer Active Checo Conklin MD Active CEFDINIR 300 MG ORAL CAPSULE by mouth twice a day 2013 CEFDINIR 78390628344 No Longer Active Dangelo Rangel MD Acti ve BUPROPION HCL ER (SMOKING DET) 150 MG ORAL TABLET EXTE NDED RELEASE 12 HOUR 1 a day for 1 week then 1 twice a day BUPROPION HCL (SMOKING DETER) 00111415730 No Longer Active Checo Conklin MD Active SIMVASTATIN 20 MG ORAL TABLET 1 po qd SIMVASTAT IN 61141716165 Active Checo Conklin MD Active CHANTIX STARTING MONTH KARTHIK 0.5 MG X 11 & 1 MG X 42 ORA L TABLET 0.5mg daily for 3 days, then 0.5mg BID for 4 days, then 1mg BID VARENICLINE TARTRATE 82177986814 No Longer Active Checo Conklin MD Activ e XANAX 0.5 MG ORAL TABLET 1 po BID PRN anxiety A LPRAZOLAM 82555682205 Active Checo Conklin MD Active CONCERTA 18 MG ORAL TABLET EXTENDED RELEASE 1 po q a.m. METHYLPHENIDATE HCL 07371799854 No Longer Active Checo Conklin MD Active AMBIEN 5 MG ORAL TABLET 1 po qHS PRN Insomnia Z OLPIDEM TARTRATE 75940640380 Active Checo Conklin MD Active TRAZODONE HCL 100 MG ORAL TABLET 0.5 to 1 po qHS PRN Insomnia 20 30/07/08 TRAZODONE HCL 60075026250 No Longer Active Checo Conklin MD Active FIORICET 325-50-40 MG TAB 1 tablet by mouth four times daily as needed [id number]-INED-CGJSFIGVHU 62750292543 No Longer Active Checo Conklin MD Active PHENERGAN CREAM* 25mg applied to wrist q6hr PRN Nausea PHENERGAN CREAM* No Longer Active Checo Gonzales ctive FLONASE 50 MCG/ACT NASAL SUSPENSION 1 spray each nostril am and hs FLUTICASONE PROPIONATE 44595511657 No Longer Active Checo Conklin MD Active ANTIPYRINE-BENZOCAINE 5.4-1.4 % OTIC SOLUTION 1-2 drops in affec yohannes ear BENZOCAINE-ANTIPYRINE 17973908001 No Longer Active Checo Conklin MD Active CEFDINIR 300 MG ORAL CAPSULE 1 po bid CEFDINIR 08874645009 No Longer Active Checo Conklin MD Active PREDNISONE 20 MG ORAL TABLET 2 tabs daily for 3 days, 1 tab daily for 3 days, 1/2 tab daily for 2 days PREDNISONE 63909236490 No Longer Active Checo Conklin MD Active AZITHROMYCIN 250 MG ORAL TABLET 2 po qd x 1 day, then 1 po q d x 4 days AZITHROMYCIN 60098898654 No Longer Active Checo Ortiz MD Active PREDNISONE 20 MG ORAL TABLET 2 tabs daily for 3 days, 1 tab daily for 3 days, 1/2 tab daily for 2 days PREDNISONE 15879093451 No Longer Active Checo Conklin MD Active ZITHROMAX Z-KARTHIK 250 MG ORAL TABLET 2 today, then 1 daily for 4 d ays AZITHROMYCIN 94357404029 No Longer Active Paul Hamlin MD Active FOCALIN XR 10 MG ORAL CAPSULE EXTENDED RELEASE 24 HOUR 1 po q a. m. DEXMETHYLPHENIDATE HCL 74839208387 No Longer Active Paul Hamlin MD Active PERCOCET 10-325 MG ORAL TABLET 1 tablet every 6 hours as needed for pain OXYCODONE-ACETAMINOPHEN 39697106239 No Longer Active Paul Hamlin MD Active LORTAB 5-500 MG ORAL TABLET 1/2 to 1 tablet by mouth e very 4 hours as needed for pain HYDROCODONE-ACETAMINOPHEN 37846773614 No Longer Active Checo Conklin MD Active FOCALIN XR 15 MG ORAL CAPSULE EXTENDED RELEASE 24 HOUR 1 po q a. m. DEXMETHYLPHENIDATE HCL 35830889001 No Longer Active Checo Conklin MD Active ZOFRAN ODT 4 MG ORAL TABLET DISINTEGRATING 1 po q6hr PRN Nausea ONDANSETRON 18601607139 No Longer Active Checo Conklin MD Active PERCOCET 5-325 MG ORAL TABLET 1 tablet by mouth every 6 hour s as needed OXYCODONE-ACETAMINOPHEN 11764153569 No Longer Active Checo Conklin MD Active PYRIDIUM 200 MG ORAL TABLET take 1 tab po TID prn urinary pain. PHENAZOPYRIDINE HCL 89687614694 No Longer Active Checo Joshua Active FLUCONAZOLE 150 MG ORAL TABLET take 1 tab po qday once FLUCONAZOLE 51461302310 No Longer Active Dangelo Rangel MD Acti ve CIPRO 500 MG ORAL TABLET 1 tablet by mouth twice daily CIPROFLOXACIN HCL 01888753628 No Longer Active Dangelo Rangel MD Active PYRIDIUM 200 MG ORAL TABLET take 1 tab po TID prn urinary pain. PYRIDIUM 200 MG ORAL TABLET 7793521 PHENAZOPYRIDINE HCL Inactive PERCOCET 5-325 MG ORAL TABLET 1 tablet by mouth every 6 hour s as needed PERCOCET 5-325 MG ORAL TABLET 2100966 OXYCODONE-ACETAMINOPHEN Inactive ZOFRAN ODT 4 MG ORAL TABLET DISINTEGRATING 1 po q6hr PRN Nausea ZOFRAN ODT 4 MG ORAL TABLET DISINTEGRATING 651340 ONDAN SETRON Inactive FOCALIN XR 15 MG ORAL CAPSULE EXTENDED RELEASE 24 HOUR 1 po q a. m. FOCALIN XR 15 MG ORAL CAPSULE EXTENDED RELEASE 24 HOUR DEXMETHYLPHENIDATE HCL Inactive LORTAB 5-500 MG ORAL TABLET 1/2 to 1 tablet by mouth e very 4 hours as needed for pain LORTAB 5-500 MG ORAL TABLET 109034 HYDROCODONE-ACETAMINOPHEN Inactive PERCOCET 10-325 MG ORAL TABLET 1 tablet every 6 hours as needed for pain PERCOCET 10-325 MG ORAL TABLET 3883768 OXYCODONE-ACETAMI NOPHEN Inactive FOCALIN XR 10 MG ORAL CAPSULE EXTENDED RELEASE 24 HOUR 1 po q a. m. FOCALIN XR 10 MG ORAL CAPSULE EXTENDED RELEASE 24 HOUR DEXMETHYLPHENIDATE HCL Inactive CEFDINIR 300 MG ORAL CAPSULE 1 po bid CEFDINI R 300 MG ORAL CAPSULE 586766 CEFDINIR Inactive ANTIPYRINE-BENZOCAINE 5.4-1.4 % OTIC SOLUTION 1-2 drops in affec yohannes ear ANTIPYRINE-BENZOCAINE 5.4-1.4 % OTIC SOLUTION 861189 BENZOCAINE-ANTIPYRINE Inactive FLONASE 50 MCG/ACT NASAL SUSPENSION 1 spray each nostril am and hs FLONASE 50 MCG/ACT NASAL SUSPENSION 5808036 FLUTICASONE PROPIONATE I nactive PHENERGAN CREAM* 25mg applied to wrist q6hr PRN Nausea PHENERGAN CREAM* Inactive FIORICET 325-50-40 MG TAB 1 tablet by mouth four times daily as needed FIORICET 325-50-40 MG TAB ACETAMINOPHEN-C AFF-BUTALBITAL Inactive TRAZODONE HCL 100 MG ORAL TABLET 0.5 to 1 po qHS PRN Insomnia 20 30/07/08 TRAZODONE HCL 100 MG ORAL TABLET 255749 TRAZODONE HCL Inactive CONCERTA 18 MG ORAL [...] cough HYDROCODONE-ACETAMINOPHEN 5-325 MG ORAL TABLET 8 67292 HYDROCODONE-ACETAMINOPHEN Inactive PHENAZOPYRIDINE HCL 200 MG ORAL TABLET take 1 tab po TID for bladder pain PHENAZOPYRIDINE HCL 200 MG ORAL TABLET 5269821 PHENAZOPYRIDINE HCL Inactive HYDROCODONE-ACETAMINOPHEN 5-325 MG ORAL TABLET 1 po q 6hr PRN Pa in HYDROCODONE-ACETAMINOPHEN 5-325 MG ORAL TABLET 776762 HYDROCODONE-ACETAMINOPHEN Inactive CELEXA 20 MG ORAL TABLET 1 tablet by mouth daily 09/26 CELEXA 20 MG ORAL TABLET 537197 CITALOPRAM HYDROBROMIDE Inactive REGLAN 10 MG ORAL TABLET 1 po TID PRN Nausea 3 REGLAN 10 MG ORAL TABLET 986430 METOCLOPRAMIDE HCL Inactive LAMISIL 250 MG ORAL TABLET 1 po qd L AMISIL 250 MG ORAL TABLET 371085 TERBINAFINE HCL Inactive DICLOFENAC SODIUM 75 MG ORAL TABLET DELAYED RELEASE 1 tablet by mouth twice daily PRN Knee pain DICLOFENAC SODIUM 75 MG ORAL TABLET DELAYED RELEASE 591825 DICLOFENAC SODIUM Inactive METOCLOPRAMIDE HCL 10 MG ORAL TABLET take one PO tid PRN nausea METOCLOPRAMIDE HCL 10 MG ORAL TABLET 498488 METOCLOPRAM ZACH HCL Inactive TERBINAFINE HCL 250 MG ORAL TABLET take one table PO one time da moises TERBINAFINE HCL 250 MG ORAL TABLET 788504 TERBINAFINE H CL Inactive BUPROPION HCL ER [...] SICKNESS 25 M G ORAL TABLET CHEWABLE 785453 MECLIZINE HCL Inactive SUMATRIPTAN SUCCINATE 100 MG ORAL TABLET Take one PRN for migran e SUMATRIPTAN SUCCINATE 100 MG ORAL TABLET 644411 SUMATRIPTAN SUCCINATE Inactive COMPRO 25 MG RECTAL SUPPOSITORY insert or apply one garza ppository rectally as directed every 12 hours as needed for nausea COMPRO 25 MG RECTAL SUPPOSITORY 395200 PROCHLORPERAZINE Inactive ONDANSETRON 8 MG ORAL TABLET DISINTEGRATING place one tablet on tongue and allow to dissolve every 6 hours as needed for vomitting ONDANSETRON 8 MG ORAL TABLET DISINTEGRATING 978835 ONDANSETRON Inactive HYDROCODONE-ACETAMINOPHEN 5-325 MG ORAL TABLET 0.5 to 1 tab by mouth every 6 hours as needed HYDROCODONE-ACETAMIN OPHEN 5-325 MG ORAL TABLET 128451 HYDROCODONE-ACETAMINOPHEN Inactive BACTRIM DS 800-160 MG ORAL TABLET 1 tab by mouth twice daily 201 11/23/03 BACTRIM DS 800-160 MG ORAL TABLET 765450 TRIMETHOPRIM-SULFAMETHOXAZOLE Inactive DIFLUCAN 150 MG ORAL TABLET 1 tablet by mouth if neede d, hold until symptoms start DIFLUCAN 150 MG ORAL TABLET 295924 FLUCONAZ OLE Inactive IBUPROFEN 800 MG ORAL TABLET 1 tab every 8 hours with food 03/20 IBUPROFEN 800 MG ORAL TABLET 168020 IBUPROFEN Krupa ctive HYDROCODONE-ACETAMINOPHEN 5-325 MG ORAL TABLET 1 tab b y mouth every 6 hours as needed HYDROCODONE-ACETAMINOPHEN 5-325 MG ORAL TABLET 391896 HYDROCODONE-ACETAMINOPHEN Inactive BACTROBAN 2 % EXTERNAL CREAM Apply to affected area BID for up to 10 days BACTROBAN 2 % EXTERNAL CREAM 469953 MUPIROCIN CA LCIUM Inactive MAGNESIUM CITRATE 1.745 GM/30ML ORAL SOLUTION 150ml po BID P RN Constipation MAGNESIUM CITRATE 1.745 GM/30ML ORAL SOLUTION 10 07547 MAGNESIUM CITRATE Inactive DIFLUCAN 150 MG ORAL TABLET 1 tablet by mouth qod 2015 DIFLUCAN 150 MG ORAL TABLET 836452 FLUCONAZOLE Inactive BACTRIM DS 800-160 MG ORAL TABLET 1 tab by mouth twice daily 201 12/19/26 BACTRIM DS 800-160 MG ORAL TABLET 815473 TRIMETHOPRIM-SULFAMETHOXAZOLE Inactive CLARITIN 10 MG ORAL TABLET 1 tablet by mouth daily as needed for allergies CLARITIN 10 MG ORAL TABLET 547268 LORATADINE I nactive FLUTICASONE PROPIONATE 50 MCG/ACT NASAL SUSPENSION 2 s prays/nostril qd PRN Congestion/Allergies FLUTICASONE PROPION ATE 50 MCG/ACT NASAL SUSPENSION 7593924 FLUTICASONE PROPIONATE Inactive CIPRO 500 MG ORAL TABLET 1 tablet by mouth twice daily CIPRO 500 MG ORAL TABLET 250527 CIPROFLOXACIN HCL Inactive FLUCONAZOLE 150 MG ORAL TABLET take 1 tab po qday once FLUCONAZOLE 150 MG ORAL TABLET 099307 FLUCONAZOLE Inactive ZITHROMAX Z-KARTHIK 250 MG ORAL TABLET 2 today, then 1 daily for 4 d ays ZITHROMAX Z-KARTHIK 250 MG ORAL TABLET 801245 AZITHROMYCIN Inactive PREDNISONE 20 MG ORAL TABLET 2 tabs daily for 3 days, 1 tab daily for 3 days, 1/2 tab daily for 2 days PREDNISONE 20 MG ORAL T ABLET 025999 PREDNISONE Inactive AZITHROMYCIN 250 MG ORAL TABLET 2 po qd x 1 day, then 1 po q d x 4 days AZITHROMYCIN 250 MG ORAL TABLET 991427 AZITHROMY SPARKLE Inactive PREDNISONE 20 MG ORAL TABLET 2 tabs daily for 3 days, 1 tab daily for 3 days, 1/2 tab daily for 2 days PREDNISONE 20 MG ORAL TABLET 309721 PREDNISONE Inactive CEFDINIR 300 MG ORAL CAPSULE by mouth twice a day 2013 CEFDINIR 300 MG ORAL CAPSULE 370797 CEFDINIR Inactive TRIAMCINOLONE ACETONIDE 0.1 % EXTERNAL OINTMENT Apply to affected areas TID for up to 2 weeks TRIAMCINOLONE ACETON ZACH 0.1 % EXTERNAL OINTMENT 1997962 TRIAMCINOLONE ACETONIDE Inactive PREDNISONE 20 MG ORAL TABLET 2 tabs daily for 3 days, 1 tab daily for 3 days, 1/2 tab daily for 2 days PREDNISONE 20 MG ORAL T ABLET 429412 PREDNISONE Inactive BACTRIM DS 800-160 MG ORAL TABLET 1 po BID x 7 days 29/04/10 BACTRIM DS 800-160 MG ORAL TABLET 759940 SULFAMETHOXAZOLE-TRIMETHOP RIM Inactive CIPRO 500 MG ORAL TABLET 1 tablet by mouth twice daily CIPRO 500 MG ORAL TABLET 996334 CIPROFLOXACIN HCL Inactive AZITHROMYCIN 250 MG ORAL TABLET 2 po qd x 1 day, then 1 po q d x 4 days AZITHROMYCIN 250 MG ORAL TABLET 904352 AZITHROMY SPARKLE Inactive FLAGYL 500 MG ORAL TABLET 1 tablet by mouth bid 04/13 FLAGYL 500 MG ORAL TABLET 322327 METRONIDAZOLE Inactive AZITHROMYCIN 250 MG ORAL TABLET 2 po qd x 1 day, then 1 po q d x 4 days AZITHROMYCIN 250 MG ORAL TABLET 828820 AZITHROMY SPARKLE Inactive AMOXICILLIN 500 MG ORAL CAPSULE 2 po BID x 10 days 201 01/15/27 AMOXICILLIN 500 MG ORAL CAPSULE 636406 AMOXICILLIN Inactive Immunizations Vaccine Administration Date Value [...] PANEL - Chemistry cholesterol, serum 192 mg/dL 441-535 7980/02/20 HDL cholesterol, serum 31 mg/dL > OR [...] 11 .0-15.0 platelet count 218 THOUSAND/UL 10*3/mm3 544-226 4462/02/20 mean platelet volume 9.7 fL 7.5-12.5 Encounters Code Encounter Date Provider Facility CPT-98420 Level 3 Est. Patient 13:05:44 CDT Paul Hamlin MD [facility] CPT-74544 Level 3 Est. Patient 11:29:55 CDT Checo Conklin MD [facility] CPT-04546 Level 4 Est. Patient 11:08:12 [employer] Checo Conklin MD [facility] CPT-59905 Level 4 Est. Patient 16:06:48 [employer] Checo Conklin MD [facility] CPT-41469 Level 3 Est. Patient 09:11:49 CDT Efren almendarez [facility] CPT-17480 Level 2 Est. Patient 19:53:27 CDT Tanner hill MD [facility] [id number] Level 3 Est. Patient 09:15:34 CDT Efren almendarez [facility] CPT-71056 Level 3 Est. Patient 11:28:51 [employer] Efren almendarez [facility] CPT-09407 Level 4 Est. Patient 13:55:46 [employer] Checo Conklin MD [facility] CPT-59304 Level 4 Est. Patient 17:10:53 CDT Checo Conklin MD [facility] CPT-77106 Level 3 Est. Patient 15:56:22 CDT Checo Conklin MD [facility] CPT-91988 Level 3 Est. Patient 15:29:07 CDT Checo Conklin MD [facility] CPT-61042 Level 3 Est. Patient 14:38:41 CDT Checo Conklin MD [facility] CPT-89471 Level 3 Est. Patient 15:22:03 [employer] Thomas reynolsd DO [facility] CPT-21606 Level 3 Est. Patient 13:34:17 [employer] Checo Conklin MD [facility] CPT-85984 Level 3 Est. Patient 12:29:32 CDT Dangelo arroyo MD [facility] CPT-55234 Level 3 Est. Patient 16:53:02 CDT Checo Conklin MD [facility] CPT-61934 Level 3 Est. Patient 16:37:13 CDT Checo Conklin MD [facility] CPT-44908 Level 3 Est. Patient 16:16:59 CDT Paul Hamlin MD [facility] CPT-60946 Level 3 Est. Patient 14:20:13 CDT Dangelo arroyo MD [facility] CPT-70430 Level 4 Est. Patient 11:29:33 CDT Checo Conklin MD [facility] CPT-44607 Level 3 Est. Patient 17:08:31 CDT Checo Conklin MD [facility] CPT-78695 Level 3 Est. Patient 16:50:42 [employer] Checo Conklin MD [facility] CPT-62001 Level 4 Est. Patient 09:26:08 [employer] Checo Conklin MD [facility] CPT-06381 Level 3 Est. Patient 11:37:10 CDT Checo Conklin MD [facility] CPT-55201 Level 4 Est. Patient 14:07:38 CDT Checo Conklin MD [facility] CPT-15014 Level 3 Est. Patient 09:54:41 CDT Checo Conklin MD [facility] CPT-54581 Level 3 Est. Patient 11:10:54 CDT Paul Hamlin MD [facility] CPT-91783 Level 3 Est. Patient 14:16:56 [employer] Checo Conklin MD [facility] CPT-37695 Level 3 Est. Patient 11:04:11 [employer] Checo Conklin MD [facility] CPT-99525 Level 3 Est. Patient 17:09:26 CDT Dangelo arroyo MD [facility] CPT-47777 Level 3 Est. Patient 16:54:37 CDT Checo Conklin MD [facility] Procedures Code Procedure Name Date Entry Date Standard Desc ription CPT-29279 UA w micro - LAB USE ONLY 17:06:46 CDT 2015 CPT-43323 [facility] Qual - LAB USE ONLY 17:06:46 CDT 05/06 CPT-75762 CMP - LAB USE ONLY 17:06:46 CDT CPT-89984 CBC with Diff - LAB USE ONLY 17:06:45 CDT 2 CPT-94312 Venipuncture Draw Fee 17:06:45 CDT CPT-LR Lesion Removal 19:53:27 CDT CPT-OV Office Visit 11:31:28 CDT CPT-83665 Tubersol 09:39:29 CDT CPT-J2550 Phenergan 25 mg (Promethazine) 13:59:02 [employer] CPT-J1885 Toradol 60 mg (Ketorolac) 13:59:02 [employer] 2012
--- OUTSIDE RECORDS SUMMARY | 2019-09-29 02:02 | XMS REPORT | Clinical Summary ---
Author Author Admin, Bethany Gonzales Organization [employer] Address Unknown Phone Unavailable Allergies, Adverse Reactions, [...] CAPSULE 1 po qd PRN Edema HYDROCHLOROTHIAZIDE [id number] Active Checo Conklin MD Ac tive IBUPROFEN 800 MG ORAL TABLET 1 tab every 8 hours as needed for p ain IBUPROFEN 82865988111 Active Dangelo Rangel MD Acti ve PAROXETINE HCL 40 MG ORAL TABLET 1 po qd PAR OXETINE HCL 57987048366 Active Checo Conklin MD Active MIRALAX ORAL POWDER 8.5 to 17g po qd PRN Constipation POLYETHYLENE GLYCOL 3350 25752228576 No Longer Active Checo Conklin MD Active PROTONIX 40 MG ORAL TABLET DELAYED RELEASE 1 pill by [facility] daily, for acid reflux PANTOPRAZOLE SODIUM 64457513879 No Longer Activ e Corry Méndez LPN Active FLAGYL 500 MG ORAL TABLET 1 tablet by mouth bid 08/29 METRONIDAZOLE 22667575261 No Longer Active Corry Méndez LPN Active CLARITHROMYCIN 500 MG ORAL TABLET 1 tab po BID x 14 days CLARITHROMYCIN 47867663731 No Longer Active Corry Méndez LPN Active AMOXICILLIN 500 MG ORAL CAPSULE 2 po BID x 14 days for H. Pylori AMOXICILLIN 66017155769 No Longer Active Corry Méndez LPN Active FLUTICASONE PROPIONATE 50 MCG/ACT NASAL SUSPENSION 2 s prays/nostril qd PRN Congestion/Allergies FLUTICASONE PROPIONATE 0725357737 9 No Longer Active Checo Conklin MD Active AMOXICILLIN 500 MG ORAL CAPSULE 2 po BID x 10 days 201 01/15/27 AMOXICILLIN 05827613072 No Longer Active Checo Conklin MD Activ e CLARITIN 10 MG ORAL TABLET 1 tablet by mouth daily as needed for allergies LORATADINE 40084167717 No Longer Active Checo Ortiz MD Active BACTRIM DS 800-160 MG ORAL TABLET 1 tab by mouth twice daily 201 12/19/26 TRIMETHOPRIM-SULFAMETHOXAZOLE 59757384960 No Longer Active Ragini Carrillo MD Active DIFLUCAN 150 MG ORAL TABLET 1 tablet by mouth qod 2015 FLUCONAZOLE 60448560540 No Longer Active Efren Medel APRN Act mike AZITHROMYCIN 250 MG ORAL TABLET 2 po qd x 1 day, then 1 po q d x 4 days AZITHROMYCIN 46522102516 No Longer Active Efren flores APRN Active FLAGYL 500 MG ORAL TABLET 1 tablet by mouth bid 04/13 METRONIDAZOLE 73849864519 No Longer Active Checo Conklin MD Acti ve FOCALIN XR 10 MG ORAL CAPSULE EXTENDED RELEASE 24 HOUR 1 po q a.m. DEXMETHYLPHENIDATE HCL 40239925952 Active Checo Conklin MD Active MAGNESIUM CITRATE 1.745 GM/30ML ORAL SOLUTION 150ml po BID P RN Constipation MAGNESIUM CITRATE 92288952475 No Longer Active Checo Conklin MD Active BACTROBAN 2 % EXTERNAL CREAM Apply to affected area BID for up to 10 days MUPIROCIN CALCIUM 38523382259 No Longer Active Checo Conklin MD Active HYDROCODONE-ACETAMINOPHEN 5-325 MG ORAL TABLET 1 tab b y mouth every 6 hours as needed HYDROCODONE-ACETAMINOPHEN 00165409810 No Longer Active Checo Conklin MD Active IBUPROFEN 800 MG ORAL TABLET 1 tab every 8 hours with food 03/20 IBUPROFEN 67489096773 No Longer Active Checo Coknlin MD Active DIFLUCAN 150 MG ORAL TABLET 1 tablet by mouth if neede d, hold until symptoms start FLUCONAZOLE 67856473062 No Longer Active Checo Conklin MD Active BACTRIM DS 800-160 MG ORAL TABLET 1 tab by mouth twice daily 201 11/23/03 TRIMETHOPRIM-SULFAMETHOXAZOLE 73050760612 No Longer Active Bonnie Méndez LPN Active HYDROCODONE-ACETAMINOPHEN 5-325 MG ORAL TABLET 0.5 to 1 tab by mouth every 6 hours as needed HYDROCODONE-ACETAMINOPHEN 83964275319 No Longer Active Checo Conklin MD Active ONDANSETRON 8 MG ORAL TABLET DISINTEGRATING place one tablet on tongue and allow to dissolve every 6 hours as needed for vomitting ONDANSETRON 16566499082 No Longer Active Checo Conklin MD Activ e COMPRO 25 MG RECTAL SUPPOSITORY insert or apply one garza ppository rectally as directed every 12 hours as needed for nausea PROCHLORPERAZINE 18827744720 No Longer Active Checo Conklin MD A ctive SUMATRIPTAN SUCCINATE 100 MG ORAL TABLET Take one PRN for migran e SUMATRIPTAN SUCCINATE 96573772120 No Longer Active Checo Conklin MD Active TRAVEL SICKNESS 25 MG ORAL TABLET CHEWABLE chew and sw allow one tablet every 6 hours as needed MECLIZINE HCL 95056544861 No Longer A ctive Checo Conklin MD Active BUPROPION HCL ER (SR) 100 MG ORAL TABLET EXTENDED RELE ASE 12 HOUR take one tablet by mouth one time daily for one week then take 1 two times daily BUPROPION HCL 27492563917 No Longer Active Checo gallagher MD Active TERBINAFINE HCL 250 MG ORAL TABLET take one table PO one time da moises TERBINAFINE HCL 48008865203 No Longer Active Checo Conklin MD Active METOCLOPRAMIDE HCL 10 MG ORAL TABLET take one PO tid PRN nausea METOCLOPRAMIDE HCL 70434422747 No Longer Active Checo Conklin MD Active DICLOFENAC SODIUM 75 MG ORAL TABLET DELAYED RELEASE 1 tablet by mouth twice daily PRN Knee pain DICLOFENAC SODIUM 68789766240 No Longer Active Checo Conklin MD Active LAMISIL 250 MG ORAL TABLET 1 po qd TERBINAFI NE HCL 46536498935 No Longer Active Checo Conklin MD Active REGLAN 10 MG ORAL TABLET 1 po TID PRN Nausea 3 METOCLOPRAMIDE HCL 59948217660 No Longer Active Checo Conklin MD Active CELEXA 20 MG ORAL TABLET 1 tablet by mouth daily 09/26 CITALOPRAM HYDROBROMIDE 85897851490 No Longer Active Checo Conklin MD Active AZITHROMYCIN 250 MG ORAL TABLET 2 po qd x 1 day, then 1 po q d x 4 days AZITHROMYCIN 87937992416 No Longer Active Checo Ortiz MD Active HYDROCODONE-ACETAMINOPHEN 5-325 MG ORAL TABLET 1 po q 6hr PRN Pa in HYDROCODONE-ACETAMINOPHEN 13317550632 No Longer Active Lenora Conklin MD Active PHENAZOPYRIDINE HCL 200 MG ORAL TABLET take 1 tab po TID for bladder pain PHENAZOPYRIDINE HCL 36453955902 No Longer Active Joe Conklin MD Active CIPRO 500 MG ORAL TABLET 1 tablet by mouth twice daily CIPROFLOXACIN HCL 35584819776 No Longer Active Dangelo Rangel MD Active HYDROCODONE-ACETAMINOPHEN 5-325 MG ORAL TABLET 1/2 to 1 po q 4 hours prn cough HYDROCODONE-ACETAMINOPHEN 64359268861 No Longer Activ e Dangelo Rangel MD Active BACTRIM DS 800-160 MG ORAL TABLET 1 po BID x 7 days 29/04/10 SULFAMETHOXAZOLE-TRIMETHOPRIM 60565657654 No Longer Active Checo Conklin MD Active PREDNISONE 20 MG ORAL TABLET 2 tabs daily for 3 days, 1 tab daily for 3 days, 1/2 tab daily for 2 days PREDNISONE 60522518595 No Longer Active Checo Conklin MD Active TRIAMCINOLONE ACETONIDE 0.1 % EXTERNAL OINTMENT Apply to affected areas TID for up to 2 weeks TRIAMCINOLONE ACETONIDE 13317541109 No Longer Active Checo Conklin MD Active CEFDINIR 300 MG ORAL CAPSULE by mouth twice a day 2013 CEFDINIR 76696749374 No Longer Active Dangelo Rangel MD Acti ve BUPROPION HCL ER (SMOKING DET) 150 MG ORAL TABLET EXTE NDED RELEASE 12 HOUR 1 a day for 1 week then 1 twice a day BUPROPION HCL (SMOKING DETER) 02973722482 No Longer Active Checo Conklin MD Active SIMVASTATIN 20 MG ORAL TABLET 1 po qd SIMVASTAT IN 33934861234 Active Checo Conklin MD Active CHANTIX STARTING MONTH KARTHIK 0.5 MG X 11 & 1 MG X 42 ORA L TABLET 0.5mg daily for 3 days, then 0.5mg BID for 4 days, then 1mg BID VARENICLINE TARTRATE 13857969158 No Longer Active Checo Conklin MD Activ e XANAX 0.5 MG ORAL TABLET 1 po BID PRN anxiety A LPRAZOLAM 00873787718 Active Checo Conklin MD Active CONCERTA 18 MG ORAL TABLET EXTENDED RELEASE 1 po q a.m. METHYLPHENIDATE HCL 12019559807 No Longer Active Checo Conklin MD Active AMBIEN 5 MG ORAL TABLET 1 po qHS PRN Insomnia Z OLPIDEM TARTRATE 09184231815 Active Checo Conklin MD Active TRAZODONE HCL 100 MG ORAL TABLET 0.5 to 1 po qHS PRN Insomnia 20 30/07/08 TRAZODONE HCL 97068436065 No Longer Active Checo Conklin MD Active FIORICET 325-50-40 MG TAB 1 tablet by mouth four times daily as needed EGBWCCLFJAFOT-THEN-UJITNAUUBL 04085568394 No Longer Active Checo Conklin MD Active PHENERGAN CREAM* 25mg applied to wrist q6hr PRN Nausea PHENERGAN CREAM* No Longer Active Checo Gonzales ctive FLONASE 50 MCG/ACT NASAL SUSPENSION 1 spray each nostril am and hs FLUTICASONE PROPIONATE 75566373727 No Longer Active Checo Conklin MD Active ANTIPYRINE-BENZOCAINE 5.4-1.4 % OTIC SOLUTION 1-2 drops in affec yohannes ear BENZOCAINE-ANTIPYRINE 86511682402 No Longer Active Checo Conklin MD Active CEFDINIR 300 MG ORAL CAPSULE 1 po bid CEFDINIR 45515881005 No Longer Active Checo Conklin MD Active PREDNISONE 20 MG ORAL TABLET 2 tabs daily for 3 days, 1 tab daily for 3 days, 1/2 tab daily for 2 days PREDNISONE 05700550092 No Longer Active Checo Conklin MD Active AZITHROMYCIN 250 MG ORAL TABLET 2 po qd x 1 day, then 1 po q d x 4 days AZITHROMYCIN 13593087145 No Longer Active Checo Ortiz MD Active PREDNISONE 20 MG ORAL TABLET 2 tabs daily for 3 days, 1 tab daily for 3 days, 1/2 tab daily for 2 days PREDNISONE 58637474325 No Longer Active Checo Conklin MD Active ZITHROMAX Z-KARTHIK 250 MG ORAL TABLET 2 today, then 1 daily for 4 d ays AZITHROMYCIN 08043941169 No Longer Active Paul Hamlin MD Active FOCALIN XR 10 MG ORAL CAPSULE EXTENDED RELEASE 24 HOUR 1 po q a. m. DEXMETHYLPHENIDATE HCL 56875714090 No Longer Active Paul Hamlin MD Active PERCOCET 10-325 MG ORAL TABLET 1 tablet every 6 hours as needed for pain OXYCODONE-ACETAMINOPHEN 36959837695 No Longer Active Paul Hamlin MD Active LORTAB 5-500 MG ORAL TABLET 1/2 to 1 tablet by mouth e very 4 hours as needed for pain HYDROCODONE-ACETAMINOPHEN 76832179528 No Longer Active Checo Conklin MD Active FOCALIN XR 15 MG ORAL CAPSULE EXTENDED RELEASE 24 HOUR 1 po q a. m. DEXMETHYLPHENIDATE HCL 47698758933 No Longer Active Checo Conklin MD Active ZOFRAN ODT 4 MG ORAL TABLET DISINTEGRATING 1 po q6hr PRN Nausea ONDANSETRON 05718645281 No Longer Active Checo Conklin MD Active PERCOCET 5-325 MG ORAL TABLET 1 tablet by mouth every 6 hour s as needed OXYCODONE-ACETAMINOPHEN 37440161845 No Longer Active Checo Conklin MD Active PYRIDIUM 200 MG ORAL TABLET take 1 tab po TID prn urinary pain. PHENAZOPYRIDINE HCL 09732051388 No Longer Active Checo Joshua Active FLUCONAZOLE 150 MG ORAL TABLET take 1 tab po qday once FLUCONAZOLE 07482761371 No Longer Active Dangelo Rangel MD Acti ve CIPRO 500 MG ORAL TABLET 1 tablet by mouth twice daily CIPROFLOXACIN HCL 20476630724 No Longer Active Dangelo Rangel MD Active PYRIDIUM 200 MG ORAL TABLET take 1 tab po TID prn urinary pain. PYRIDIUM 200 MG ORAL TABLET 2319902 PHENAZOPYRIDINE HCL Inactive PERCOCET 5-325 MG ORAL TABLET 1 tablet by mouth every 6 hour s as needed PERCOCET 5-325 MG ORAL TABLET 2189906 OXYCODONE-ACETAMINOPHEN Inactive ZOFRAN ODT 4 MG ORAL TABLET DISINTEGRATING 1 po q6hr PRN Nausea ZOFRAN ODT 4 MG ORAL TABLET DISINTEGRATING 627428 ONDAN SETRON Inactive FOCALIN XR 15 MG [...] for pain PERCOCET 10-325 MG ORAL TABLET 8486517 OXYCODONE-ACETAMI NOPHEN Inactive FOCALIN XR 10 MG ORAL CAPSULE EXTENDED RELEASE 24 HOUR 1 po q a. m. FOCALIN XR 10 MG ORAL CAPSULE EXTENDED RELEASE 24 HOUR DEXMETHYLPHENIDATE HCL Inactive CEFDINIR 300 MG ORAL CAPSULE 1 po bid CEFDINI R 300 MG ORAL CAPSULE 816697 CEFDINIR Inactive ANTIPYRINE-BENZOCAINE 5.4-1.4 % OTIC SOLUTION 1-2 drops in affec yohannes ear ANTIPYRINE-BENZOCAINE 5.4-1.4 % OTIC SOLUTION BENZOCAINE-ANTIPYRINE Inactive FLONASE 50 MCG/ACT NASAL SUSPENSION 1 spray each nostril am and hs FLONASE 50 MCG/ACT NASAL SUSPENSION 9511578 FLUTICASONE PROPIONATE I nactive PHENERGAN CREAM* 25mg applied to wrist q6hr PRN Nausea PHENERGAN CREAM* Inactive FIORICET 325-50-40 MG TAB 1 tablet by mouth four times daily as needed FIORICET 325-50-40 MG TAB ACETAMINOPHEN-C AFF-BUTALBITAL Inactive TRAZODONE HCL 100 MG ORAL TABLET 0.5 to 1 po qHS PRN Insomnia 20 30/07/08 TRAZODONE HCL 100 MG ORAL TABLET 260973 TRAZODONE HCL Inactive CONCERTA 18 MG ORAL [...] cough HYDROCODONE-ACETAMINOPHEN 5-325 MG ORAL TABLET 8 04389 HYDROCODONE-ACETAMINOPHEN Inactive PHENAZOPYRIDINE HCL 200 MG ORAL TABLET take 1 tab po TID for bladder pain PHENAZOPYRIDINE HCL 200 MG ORAL TABLET 3427404 PHENAZOPYRIDINE HCL Inactive HYDROCODONE-ACETAMINOPHEN 5-325 MG ORAL TABLET 1 po q 6hr PRN Pa in HYDROCODONE-ACETAMINOPHEN 5-325 MG ORAL TABLET 499842 HYDROCODONE-ACETAMINOPHEN Inactive CELEXA 20 MG ORAL TABLET 1 tablet by mouth daily 09/26 CELEXA 20 MG ORAL TABLET 276456 CITALOPRAM HYDROBROMIDE Inactive REGLAN 10 MG ORAL TABLET 1 po TID PRN Nausea 3 REGLAN 10 MG ORAL TABLET 736563 METOCLOPRAMIDE HCL Inactive LAMISIL 250 MG ORAL TABLET 1 po qd L AMISIL 250 MG ORAL TABLET 613751 TERBINAFINE HCL Inactive DICLOFENAC SODIUM 75 MG ORAL TABLET DELAYED RELEASE 1 tablet by mouth twice daily PRN Knee pain DICLOFENAC SODIUM 75 MG ORAL TABLET DELAYED RELEASE 539193 DICLOFENAC SODIUM Inactive METOCLOPRAMIDE HCL 10 MG ORAL TABLET take one PO tid PRN nausea METOCLOPRAMIDE HCL 10 MG ORAL TABLET 056531 METOCLOPRAM ZACH HCL Inactive TERBINAFINE HCL 250 MG ORAL TABLET take one table PO one time da moises TERBINAFINE HCL 250 MG ORAL TABLET 263527 TERBINAFINE H CL Inactive BUPROPION HCL ER [...] SICKNESS 25 M G ORAL TABLET CHEWABLE 501832 MECLIZINE HCL Inactive SUMATRIPTAN SUCCINATE 100 MG ORAL TABLET Take one PRN for migran e SUMATRIPTAN SUCCINATE 100 MG ORAL TABLET 684015 SUMATRIPTAN SUCCINATE Inactive COMPRO 25 MG RECTAL SUPPOSITORY insert or apply one garza ppository rectally as directed every 12 hours as needed for nausea COMPRO 25 MG RECTAL SUPPOSITORY 866581 PROCHLORPERAZINE Inactive ONDANSETRON 8 MG ORAL TABLET DISINTEGRATING place one tablet on tongue and allow to dissolve every 6 hours as needed for vomitting ONDANSETRON 8 MG ORAL TABLET DISINTEGRATING 560028 ONDANSETRON Inactive HYDROCODONE-ACETAMINOPHEN 5-325 MG ORAL TABLET 0.5 to 1 tab by mouth every 6 hours as needed HYDROCODONE-ACETAMIN OPHEN 5-325 MG ORAL TABLET 132029 HYDROCODONE-ACETAMINOPHEN Inactive BACTRIM DS 800-160 MG ORAL TABLET 1 tab by mouth twice daily 201 11/23/03 BACTRIM DS 800-160 MG ORAL TABLET 964248 TRIMETHOPRIM-SULFAMETHOXAZOLE Inactive DIFLUCAN 150 MG ORAL TABLET 1 tablet by mouth if neede d, hold until symptoms start DIFLUCAN 150 MG ORAL TABLET 446346 FLUCONAZ OLE Inactive IBUPROFEN 800 MG ORAL TABLET 1 tab every 8 hours with food 03/20 IBUPROFEN 800 MG ORAL TABLET 857924 IBUPROFEN Krupa ctive HYDROCODONE-ACETAMINOPHEN 5-325 MG ORAL TABLET 1 tab b y mouth every 6 hours as needed HYDROCODONE-ACETAMINOPHEN 5-325 MG ORAL TABLET 411650 HYDROCODONE-ACETAMINOPHEN Inactive BACTROBAN 2 % EXTERNAL CREAM Apply to affected area BID for up to 10 days BACTROBAN 2 % EXTERNAL CREAM 524355 MUPIROCIN CA LCIUM Inactive MAGNESIUM CITRATE 1.745 GM/30ML ORAL SOLUTION 150ml po BID P RN Constipation MAGNESIUM CITRATE 1.745 GM/30ML ORAL SOLUTION 10 15342 MAGNESIUM CITRATE Inactive DIFLUCAN 150 MG ORAL TABLET 1 tablet by mouth qod 2015 DIFLUCAN 150 MG ORAL TABLET 360418 FLUCONAZOLE Inactive BACTRIM DS 800-160 MG ORAL TABLET 1 tab by mouth twice daily 201 12/19/26 BACTRIM DS 800-160 MG ORAL TABLET 396714 TRIMETHOPRIM-SULFAMETHOXAZOLE Inactive CLARITIN 10 MG ORAL TABLET 1 tablet by mouth daily as needed for allergies CLARITIN 10 MG ORAL TABLET 272302 LORATADINE I nactive FLUTICASONE PROPIONATE 50 MCG/ACT NASAL SUSPENSION 2 s prays/nostril qd PRN Congestion/Allergies FLUTICASONE PROPION ATE 50 MCG/ACT NASAL SUSPENSION 5352483 FLUTICASONE PROPIONATE Inactive MIRALAX ORAL POWDER 8.5 to 17g po qd PRN Constipation MIRALAX ORAL POWDER 994319 POLYETHYLENE GLYCOL 3350 Inactive CIPRO 500 MG ORAL TABLET 1 tablet by mouth twice daily CIPRO 500 MG ORAL TABLET 624692 CIPROFLOXACIN HCL Inactive FLUCONAZOLE 150 MG ORAL TABLET take 1 tab po qday once FLUCONAZOLE 150 MG ORAL TABLET 384568 FLUCONAZOLE Inactive ZITHROMAX Z-KARTHIK 250 MG ORAL TABLET 2 today, then 1 daily for 4 d ays ZITHROMAX Z-KARTHIK 250 MG ORAL TABLET 173985 AZITHROMYCIN Inactive PREDNISONE 20 MG ORAL TABLET 2 tabs daily for 3 days, 1 tab daily for 3 days, 1/2 tab daily for 2 days PREDNISONE 20 MG ORAL T ABLET 368904 PREDNISONE Inactive AZITHROMYCIN 250 MG ORAL TABLET 2 po qd x 1 day, then 1 po q d x 4 days AZITHROMYCIN 250 MG ORAL TABLET 413061 AZITHROMY SPARKLE Inactive PREDNISONE 20 MG ORAL TABLET 2 tabs daily for 3 days, 1 tab daily for 3 days, 1/2 tab daily for 2 days PREDNISONE 20 MG ORAL TABLET 858381 PREDNISONE Inactive CEFDINIR 300 MG ORAL CAPSULE by mouth twice a day 2013 CEFDINIR 300 MG ORAL CAPSULE 237649 CEFDINIR Inactive TRIAMCINOLONE ACETONIDE 0.1 % EXTERNAL OINTMENT Apply to affected areas TID for up to 2 weeks TRIAMCINOLONE ACETON ZACH 0.1 % EXTERNAL OINTMENT 0418650 TRIAMCINOLONE ACETONIDE Inactive PREDNISONE 20 MG ORAL TABLET 2 tabs daily for 3 days, 1 tab daily for 3 days, 1/2 tab daily for 2 days PREDNISONE 20 MG ORAL T ABLET 020783 PREDNISONE Inactive BACTRIM DS 800-160 MG ORAL TABLET 1 po BID x 7 days 29/04/10 BACTRIM DS 800-160 MG ORAL TABLET 498520 SULFAMETHOXAZOLE-TRIMETHOP RIM Inactive CIPRO 500 MG ORAL TABLET 1 tablet by mouth twice daily CIPRO 500 MG ORAL TABLET 535361 CIPROFLOXACIN HCL Inactive AZITHROMYCIN 250 MG ORAL TABLET 2 po qd x 1 day, then 1 po q d x 4 days AZITHROMYCIN 250 MG ORAL TABLET 012740 AZITHROMY SPARKLE Inactive FLAGYL 500 MG ORAL TABLET 1 tablet by mouth bid 04/13 FLAGYL 500 MG ORAL TABLET 127003 METRONIDAZOLE Inactive AZITHROMYCIN 250 MG ORAL TABLET 2 po qd x 1 day, then 1 po q d x 4 days AZITHROMYCIN 250 MG ORAL TABLET 328293 AZITHROMY SPARKLE Inactive AMOXICILLIN 500 MG ORAL CAPSULE 2 po BID x 10 days 201 01/15/27 AMOXICILLIN 500 MG ORAL CAPSULE 231969 AMOXICILLIN Inactive AMOXICILLIN 500 MG ORAL CAPSULE 2 po BID x 14 days for H. Pylori AMOXICILLIN 500 MG ORAL CAPSULE 402678 AMOXICILLIN Inactive CLARITHROMYCIN 500 MG ORAL TABLET 1 tab po BID x 14 days CLARITHROMYCIN 500 MG ORAL TABLET 242033 CLARITHROMYCIN Inacti ve FLAGYL 500 MG ORAL TABLET 1 tablet by mouth bid 08/29 FLAGYL 500 MG ORAL TABLET 522426 METRONIDAZOLE Inactive PROTONIX 40 MG ORAL TABLET DELAYED RELEASE 1 pill by m outh daily, for acid reflux PROTONIX 40 MG ORAL TABLET DELAYED RELEAS E 040338 PANTOPRAZOLE SODIUM Inactive Immunizations Vaccine Administration Date [...] ... - Chemistry sodium, serum 138 mmol/L 626-840 9941/06/27 carbon dioxide, venous blood 30.3 mmol/L 21.0-32 [...] dipstick 1+ Negative sodium, serum 139 mmol/L 458-411 8072/11/28 carbon dioxide, venous blood 26.0 mmol/L 21.0-32 [...] Negative Encounters Code Encounter Date Provider Facility CPT-54735 Level 4 Est. Patient 11:08:43 CDT Checo Conklin MD [facility] CPT-19030 [id number] Vst-Est Level III 09:37:41 CDT Dangelo Rangel MD [facility] CPT-24646 Level 4 Est. Patient 08:57:51 TRANSMISSION AND COORDINATION ENGINEER Checo Conklin MD [facility] CPT-94279 Level 3 Est. Patient 11:24:55 TRANSMISSION AND COORDINATION ENGINEER Efren almendarez [facility] CPT-73915 Level 3 Est. Patient 13:05:44 CDT Paul Hamlin MD [facility] CPT-86206 Level 3 Est. Patient 11:29:55 CDT Checo Conklin MD [facility] CPT-84587 Level 4 Est. Patient 11:08:12 TRANSMISSION AND COORDINATION ENGINEER Checo Conklin MD [facility] CPT-57831 Level 4 Est. Patient 16:06:48 TRANSMISSION AND COORDINATION ENGINEER Checo Conklin MD [facility] CPT-73144 Level 3 Est. Patient 09:11:49 CDT Efren almendarez [facility] CPT-14324 Level 2 Est. Patient 19:53:27 CDT Tanner hill MD [facility] CPT-29595 Level 3 Est. Patient 09:15:34 CDT Efren almendarez [facility] CPT-31411 Level 3 Est. Patient 11:28:51 TRANSMISSION AND COORDINATION ENGINEER Efren almendarez [facility] CPT-53841 Level 4 Est. Patient 13:55:46 TRANSMISSION AND COORDINATION ENGINEER Checo Conklin MD [facility] CPT-86509 Level 4 Est. Patient 17:10:53 CDT Checo Conklin MD [facility] CPT-19562 Level 3 Est. Patient 15:56:22 CDT Checo Conklin MD [facility] CPT-89523 Level 3 Est. Patient 15:29:07 CDT Checo Conklin MD [facility] CPT-87193 Level 3 Est. Patient 14:38:41 CDT Checo Conklin MD [facility] CPT-16838 Level 3 Est. Patient 15:22:03 TRANSMISSION AND COORDINATION ENGINEER Thomas reynolds DO [facility] CPT-64382 Level 3 Est. Patient 13:34:17 TRANSMISSION AND COORDINATION ENGINEER Checo Conklin MD [facility] CPT-42416 Level 3 Est. Patient 12:29:32 CDT Dangelo arroyo MD [facility] CPT-87534 Level 3 Est. Patient 16:53:02 CDT Checo Conklin MD [facility] CPT-47851 Level 3 Est. Patient 16:37:13 CDT Checo Conklin MD [facility] CPT-98405 Level 3 Est. Patient 16:16:59 CDT Paul Hamlin MD [facility] CPT-28701 Level 3 Est. Patient 14:20:13 CDT Dangelo arroyo MD [facility] CPT-74679 Level 4 Est. Patient 11:29:33 CDT Checo Conklin MD [facility] CPT-29553 Level 3 Est. Patient 17:08:31 CDT Checo Conklin MD [facility] CPT-41329 Level 3 Est. Patient 16:50:42 TRANSMISSION AND COORDINATION ENGINEER Checo Conklin MD [facility] CPT-40093 Level 4 Est. Patient 09:26:08 TRANSMISSION AND COORDINATION ENGINEER Checo Conklin MD [facility] CPT-97942 Level 3 Est. Patient 11:37:10 CDT Checo Conklin MD [facility] CPT-73072 Level 4 Est. Patient 14:07:38 CDT Checo Conklin MD [facility] CPT-46115 Level 3 Est. Patient 09:54:41 CDT Checo Conklin MD [facility] CPT-51067 Level 3 Est. Patient 11:10:54 CDT Paul Hamlin MD [facility] CPT-19503 Level 3 Est. Patient 14:16:56 TRANSMISSION AND COORDINATION ENGINEER Checo Conklin MD [facility] CPT-44165 Level 3 Est. Patient 11:04:11 TRANSMISSION AND COORDINATION ENGINEER Checo Conklin MD [facility] CPT-10666 Level 3 Est. Patient 17:09:26 CDT Dangelo arroyo MD [facility] CPT-50240 Level 3 Est. Patient 16:54:37 CDT Checo Conklin MD [facility] Procedures Code Procedure Name Date Entry Date Standard Desc ription CPT-80960 Wrist, right, comp 3V - XRAY USE ONLY 09:24:31 CDT CPT-09242 Abd compl w upright - XRAY USE ONLY 1 1:36:54 TRANSMISSION AND COORDINATION ENGINEER CPT-57828 UA w micro - LAB USE ONLY 17:06:46 CDT 2015 CPT-68339 BHCG Qual - LAB USE ONLY 17:06:46 CDT 05/06 CPT-52902 CMP - LAB USE ONLY 17:06:46 CDT CPT-41871 CBC with Diff - LAB USE ONLY 17:06:45 CDT 2 CPT-68696 Venipuncture Draw Fee 17:06:45 CDT CPT-LR Lesion Removal 19:53:27 CDT CPT-OV Office Visit 11:31:28 CDT CPT-84430 Tubersol 09:39:29 CDT CPT-J2550 Phenergan 25 mg (Promethazine) 13:59:02 TRANSMISSION AND COORDINATION ENGINEER CPT-J1885 Toradol 60 mg (Ketorolac) 13:59:02 TRANSMISSION AND COORDINATION ENGINEER 2012
--- OUTSIDE RECORDS SUMMARY | 2019-09-29 02:03 | XMS REPORT | Clinical Summary ---
Author Author Admin, Bethany Gonzales Organization [employer] Address Unknown Phone Unavailable Allergies, Adverse Reactions, [...] vulvovaginitis, unspecified Pharyngitis 462 Active Jillina Frazell TROUBLE LOCATER Acute pharyngitis Cough 786.2 Active Jillina Frajoel TROUBLE LOCATER Cough Pedal edema 782.3 Active Jillina Frazell TROUBLE LOCATER Edema NEOPLASM OF UNCERTAIN BEHAVIOR OF SKIN [...] Checo Conklin MD 2013 Onychomycosis, toenails ICD-110.1 Ozzy Conklin MD Hypoglycemia, unspecified ICD-251.2 Inactive Checo Conklin MD Insomnia ICD-780.52 Inactive Checo Joshua Breast mass, right ICD-611.72 Inactive Checo Conklin MD PHARYNGITIS ICD-462 Inactive Checo Conklin MD Sinusitis ICD-461.9 Inactive Checo Conklin MD Insect bite ICD-919.4 Inactive Checo Conklin MD Carbuncle/furuncle NOS ICD-680.9 Inactive Hilaria Conklin MD Mastalgia ICD-611.71 Inactive Checo Joshua OTITIS MEDIA-RIGHT ICD-382.9 Inactive Checo Conklin MD Knee pain, right [...] tab by mouth twice daily 2 TRIMETHOPRIM-SULFAMETHOXAZOLE 87775775631 No Longer Active Tanner Carrillo MD Active DIFLUCAN 150 MG TAB 1 tablet by mouth qod FLUCO NAZOLE 30942947859 No Longer Active Efren Medel APRN Active CLARITIN 10 MG TAB 1 tablet by mouth daily as needed for allergies LORATADINE 88086937849 Active Jillina Frajoel TROUBLE LOCATER Active AZITHROMYCIN 250 MG TABS 2 po qd x 1 day, then 1 po qd x 4 days AZITHROMYCIN 35595687682 No Longer Active Jillina Lizy RIDDLEN Active FLAGYL 500 MG TAB 1 tablet by mouth bid METRONI DAZOLE 61106332816 No Longer Active Checo Conklin MD Active FOCALIN XR 10 MG ORAL [id number] 1 po q a.m. DEX METHYLPHENIDATE HCL 53900476346 Active Checo Conklin MD Active MAGNESIUM CITRATE 1.745 GM/30ML ORAL SOLN 150ml po BID PRN C onstipation MAGNESIUM CITRATE 86505984017 No Longer Active Checo Conklin MD Active BACTROBAN 2 % CREAM Apply to affected area BID for up to 10 days MUPIROCIN CALCIUM 50108973425 No Longer Active Checo Conklin MD Active HYDROCODONE-ACETAMINOPHEN 5-325 MG TABS 1 tab by mouth every 6 hours as needed HYDROCODONE-ACETAMINOPHEN 12777906634 No Longer Activ e Checo Conklin MD Active IBUPROFEN 800 MG TABS 1 tab every 8 hours with food 20 31/03/21 IBUPROFEN 22178351287 No Longer Active Checo Conklin MD Activ e DIFLUCAN 150 MG TAB 1 tablet by mouth if needed, hold until symptoms start FLUCONAZOLE 98595617775 No Longer Active Checo Ortiz MD Active BACTRIM DS 800-160 MG TAB 1 tab by mouth twice daily 2 TRIMETHOPRIM-SULFAMETHOXAZOLE 10420544177 No Longer Active Corry leong LPN Active MIRALAX PACK 1 po qd PRN Constipation POLYETHYL JOEL GLYCOL 3350 19738851836 Active Checo Conklin MD Active HYDROCODONE-ACETAMINOPHEN 5-325 MG TABS 0.5 to 1 tab b y mouth every 6 hours as needed HYDROCODONE-ACETAMINOPHEN 59634761040 No Longer Active Checo Conklin MD Active ONDANSETRON [address] one tablet on tongue and allow to dissolve every 6 hours as needed for vomitting ONDANSETRO N 66377629281 No Longer Active Checo Conklin MD Active COMPRO 25 MG RECTAL SUPP insert or apply one supposit ory rectally as directed every 12 hours as needed for nausea PROCHLORPERA ZINE 62379720209 No Longer Active Checo Conklin MD Active SUMATRIPTAN SUCCINATE 100 MG ORAL TABS Take one PRN for migrane SUMATRIPTAN SUCCINATE 41378297666 No Longer Active Checo Conklin MD Active TRAVEL SICKNESS 25 MG ORAL CHEW chew and swallow one t ablet every 6 hours as needed MECLIZINE HCL 68122165084 No Longer Active Joe Conklin MD Active BUPROPION HCL ER (SR) 100 MG ORAL [id number] take one t ablet by mouth one time daily for one week then take 1 two times daily BUPROPION HCL 45781087906 No Longer Active Checo Conklin MD Activ e TERBINAFINE HCL 250 MG ORAL TABS take one table PO one time abran y TERBINAFINE HCL 57598640887 No Longer Active Checo Conklin MD Active METOCLOPRAMIDE HCL 10 MG ORAL TABS take one PO tid PRN nausea 20 29/12/14 METOCLOPRAMIDE HCL 07402076121 No Longer Active Checo Conklin MD Active DICLOFENAC SODIUM 75 MG TBEC 1 tablet by mouth twice daily P RN Knee pain DICLOFENAC SODIUM 88594097207 No Longer Active Checo Conklin MD Active LAMISIL 250 MG TAB 1 po qd TERBINAFINE HCL 548 56190409 No Longer Active Checo Conklin MD Active REGLAN 10 MG TAB 1 po TID PRN Nausea METOCLOPRA MIDE HCL 71639281003 No Longer Active Checo Conklin MD Active CELEXA 20 MG TABS 1 tablet by mouth daily CITALOPRAM HYDROBROMIDE 85401932628 No Longer Active Checo Conklin MD Activ e AZITHROMYCIN 250 MG TABS 2 po qd x 1 day, then 1 po qd x 4 days AZITHROMYCIN 60344716918 No Longer Active Checo Conklin MD Active HYDROCODONE-ACETAMINOPHEN 5-325 MG TABS 1 po q 6hr PRN Pain 2013 HYDROCODONE-ACETAMINOPHEN 01627413083 No Longer Active Lenora Conklin MD Active PHENAZOPYRIDINE HCL 200 MG TABS take 1 tab po TID for bladder pa in PHENAZOPYRIDINE HCL 69573913695 No Longer Active Checo Joshua Active CIPRO 500 MG TAB 1 tablet by mouth twice daily CIPROFLOXACIN HCL 34709470109 No Longer Active Dangelo Rangel MD Active HYDROCODONE-ACETAMINOPHEN 5-325 MG TABS 1/2 to 1 po q 4 hour s prn cough HYDROCODONE-ACETAMINOPHEN 97892633770 No Longer Activ e Dangelo Rangel MD Active BACTRIM DS 800-160 MG TABS 1 po BID x 7 days 0 SULFAMETHOXAZOLE-TRIMETHOPRIM 83783064161 No Longer Active Checo Conklin MD Active PREDNISONE 20 MG TAB 2 tabs daily for 3 days, 1 t ab daily for 3 days, 1/2 tab daily for 2 days PREDNISONE 16644916101 No Longer Active Checo Conklin MD Active TRIAMCINOLONE ACETONIDE 0.1 % OINT Apply to affected a reas TID for up to 2 weeks TRIAMCINOLONE ACETONIDE 71694759139 No Longer A ctive Checo Conklin MD Active CEFDINIR 300 MG CAPS by mouth twice a day CEFDI JAZZY 17717669039 No Longer Active Dangelo Rangel MD Active BUPROPION HCL (SMOKING DETER) 150 MG [id number] 1 a day for 1 week then 1 twice a day BUPROPION HCL (SMOKING DETER) 26193079901 No Lo nger Active Checo Conklin MD Active SIMVASTATIN 20 MG TABS 1 po qd SIMVASTATIN 3055730629 5 Active Checo Conklin MD Active CHANTIX STARTING MONTH KARTHIK 0.5 MG X 11 & 1 MG X 42 TAB S 0.5mg daily for 3 days, then 0.5mg BID for 4 days, then 1mg BID VARENICLINE TARTRATE 66064644078 No Longer Active Checo Conklin MD Activ e XANAX 0.5 MG TABS 1 po BID PRN anxiety ALPRAZOLAM 71757618815 Active Checo Conklin MD Active CONCERTA 18 MG CR-TABS 1 po q a.m. METHYLPHENID ATE HCL 32464586691 No Longer Active Checo Conklin MD Active AMBIEN 5 MG TAB 1 po qHS PRN Insomnia ZOLPIDEM TARTRATE 19859386517 Active Checo Conklin MD Active TRAZODONE HCL 100 MG TAB 0.5 to 1 po qHS PRN Insomnia TRAZODONE HCL 13628775860 No Longer Active Checo Conklin MD Acti ve FIORICET 325-50-40 MG TAB 1 tablet by mouth four times daily as needed [id number] 27975915034 No Longer Active Checo Conklin MD Active PHENERGAN CREAM* 25mg applied to wrist q6hr PRN Nausea PHENERGAN CREAM* No Longer Active Checo Conklin MD A ctive FLONASE 50 MCG/ACT SUSP 1 spray each nostril am and hs FLUTICASONE PROPIONATE 65810006927 No Longer Active Checo Conklin MD Activ e ANTIPYRINE-BENZOCAINE 5.4-1.4 % SOLN 1-2 drops in affected ear BENZOCAINE-ANTIPYRINE 64595600749 No Longer Active Checo Conklin MD Active CEFDINIR 300 MG CAPS 1 po bid CEFDINIR 76535465 120 No Longer Active Checo Conklin MD Active PREDNISONE 20 MG TAB 2 tabs daily for 3 days, 1 t ab daily for 3 days, 1/2 tab daily for 2 days PREDNISONE 40021703391 No Longer Active Aracelis Conklin MD Active AZITHROMYCIN 250 MG TABS 2 po qd x 1 day, then 1 po qd x 4 days AZITHROMYCIN 70220823174 No Longer Active Checo Conklin MD Active PREDNISONE 20 MG TAB 2 tabs daily for 3 days, 1 t ab daily for 3 days, 1/2 tab daily for 2 days PREDNISONE 03640182539 No Longer Active Checo Conklin MD Active ZITHROMAX Z-KARTHIK 250 MG TABS 2 today, then 1 daily for 4 days 201 09/18/28 AZITHROMYCIN 59739759844 No Longer Active Paul Hamlin MD Active FOCALIN XR 10 MG [id number] 1 po q a.m. D EXMETHYLPHENIDATE HCL 28421762910 No Longer Active Paul Hamlin MD Activ e PERCOCET 10-325 MG TABS 1 tablet every 6 hours as needed for pain OXYCODONE-ACETAMINOPHEN 09534974856 No Longer Active Paul Hamlin MD Active LORTAB 5 5-500 MG TABS 1/2 to 1 tablet by mouth flaquito ry 4 hours as needed for pain HYDROCODONE-ACETAMINOPHEN 32334978008 No Longer Active Checo Conklin MD Active FOCALIN XR 15 MG [id number] 1 po q a.m. D EXMETHYLPHENIDATE HCL 47124348251 No Longer Active Checo Conklin MD Activ e ZOFRAN ODT 4 MG TBDP 1 po q6hr PRN Nausea ONDAN SETRON 48239737901 No Longer Active Checo Conklin MD Active PERCOCET 5-325 MG TABS 1 tablet by mouth every 6 hours as needed OXYCODONE-ACETAMINOPHEN 69612442781 No Longer Active Checo Conklin MD Active PYRIDIUM 200 MG TABS take 1 tab po TID prn urinary pain. 0 PHENAZOPYRIDINE HCL 31272714109 No Longer Active Checo Conklin MD Active FLUCONAZOLE 150 MG TABS take 1 tab po qday once 0 04/06 FLUCONAZOLE 89768155290 No Longer Active Dangelo Rangel MD Acti ve CIPRO 500 MG TAB 1 tablet by mouth twice daily CIPROFLOXACIN HCL 43222547294 No Longer Active Dangelo Rangel MD Active PYRIDIUM 200 MG TABS take 1 tab po TID prn urinary pain. 0 PYRIDIUM 200 MG TABS 6025961 PHENAZOPYRIDINE HCL Inactive PERCOCET 5-325 MG TABS 1 tablet by mouth every 6 hours as needed PERCOCET 5-325 MG TABS 3703001 OXYCODONE-ACETAMINOPHEN I nactive ZOFRAN ODT 4 MG TBDP 1 po q6hr PRN Nausea ZOFRAN ODT 4 MG TBDP 987562 ONDANSETRON Inactive FOCALIN XR 15 MG [id number] 1 po q a.m. F OCALIN XR 15 MG [id number] DEXMETHYLPHENIDATE HCL Inactive LORTAB 5 5-500 MG TABS 1/2 to 1 tablet by mouth flaquito ry 4 hours as needed for pain LORTAB 5 5-500 MG TABS HYDROCODONE-A CETAMINOPHEN Inactive PERCOCET 10-325 MG TABS 1 tablet every 6 hours as needed for pain PERCOCET 10-325 MG TABS 2593851 OXYCODONE-ACETAMINOPHEN Inactive FOCALIN XR 10 MG [id number] 1 po q a.m. F OCALIN XR 10 MG [id number] DEXMETHYLPHENIDATE HCL Inactive CEFDINIR 300 MG CAPS 1 po bid CEFDINIR 300 MG CAPS 20 0346 CEFDINIR Inactive ANTIPYRINE-BENZOCAINE 5.4-1.4 % SOLN 1-2 drops in affected ear ANTIPYRINE-BENZOCAINE 5.4-1.4 % SOLN 940809 BENZOCAINE-ANTIPYRINE I nactive FLONASE 50 MCG/ACT SUSP [...] PRN Insomnia TRAZODONE HCL 100 MG TAB 451953 TRAZODONE HCL Inactive CONCERTA 18 MG CR-TABS [...] s prn cough HYDROCODONE-ACETAMINOPHEN 5-325 MG TABS 602200 HYDROCODONE-ACETAMINOPHEN Inactive PHENAZOPYRIDINE HCL 200 MG TABS take 1 tab po TID for bladder pa in PHENAZOPYRIDINE HCL 200 MG TABS 5613704 PHENAZOPYRIDINE HCL Inactive HYDROCODONE-ACETAMINOPHEN 5-325 MG TABS 1 po q 6hr PRN Pain 2013 HYDROCODONE-ACETAMINOPHEN 5-325 MG TABS 410654 HYDROCODONE-ACETAMINOPHEN Inactive CELEXA 20 MG TABS 1 tablet by mouth daily CELEXA 20 MG TABS 796209 CITALOPRAM HYDROBROMIDE Inactive REGLAN 10 MG TAB 1 po TID PRN Nausea REGLAN 10 MG TAB 814630 METOCLOPRAMIDE HCL Inactive LAMISIL 250 MG TAB 1 po qd LAMISIL 250 MG TAB 688930 TERBINAFINE HCL Inactive DICLOFENAC SODIUM 75 MG TBEC 1 tablet by mouth twice daily P RN Knee pain DICLOFENAC SODIUM 75 MG TBEC 379992 DICLOFENAC S ODIUM Inactive METOCLOPRAMIDE HCL 10 MG ORAL TABS take one PO tid PRN nausea 20 29/12/14 METOCLOPRAMIDE HCL 10 MG ORAL TABS 103749 METOCLOPRAMID E HCL Inactive TERBINAFINE HCL 250 MG ORAL TABS take one table PO one time abran y TERBINAFINE HCL 250 MG ORAL TABS 152488 TERBINAFINE HCL Inactive BUPROPION HCL ER (SR) 100 MG ORAL [id number] take one t ablet by mouth one time daily for one week then take 1 two times daily BUPROPION HCL ER (SR) 100 MG ORAL [id number] BUPROPION HCL Inacti ve TRAVEL SICKNESS 25 MG ORAL CHEW chew and swallow one t ablet every 6 hours as needed TRAVEL SICKNESS 25 MG ORAL CHEW 016393 MECLIZINE HCL Inactive SUMATRIPTAN SUCCINATE 100 MG ORAL TABS Take one PRN for migrane SUMATRIPTAN SUCCINATE 100 MG ORAL TABS 013348 SUMATRIPT AN SUCCINATE Inactive COMPRO 25 MG RECTAL SUPP insert or apply one supposit ory rectally as directed every 12 hours as needed for nausea COMP RO 25 MG RECTAL SUPP 459957 PROCHLORPERAZINE Inactive ONDANSETRON [address] one tablet on tongue and allow to dissolve every 6 hours as needed for vomitting ON DANSETRON 8 MG ORAL TBDP 108036 ONDANSETRON Inactive HYDROCODONE-ACETAMINOPHEN 5-325 MG TABS 0.5 to 1 tab b y mouth every 6 hours as needed HYDROCODONE-ACETAMINOPHEN 5-325 MG TABS 8 40221 HYDROCODONE-ACETAMINOPHEN Inactive BACTRIM DS 800-160 MG TAB 1 tab by mouth twice daily 2 BACTRIM DS 800-160 MG TAB 253434 TRIMETHOPRIM-SULFAMETHOXAZOLE Inac tive DIFLUCAN 150 MG TAB 1 tablet by mouth if needed, hold until symptoms start DIFLUCAN 150 MG TAB 633110 FLUCONAZOLE Inactive IBUPROFEN 800 MG TABS 1 tab every 8 hours with food 31/03/21 IBUPROFEN 800 MG TABS 872489 IBUPROFEN Inactive HYDROCODONE-ACETAMINOPHEN 5-325 MG TABS 1 tab by mouth every 6 hours as needed HYDROCODONE-ACETAMINOPHEN 5-325 MG TABS 158817 HYDROCODONE-ACETAMINOPHEN Inactive BACTROBAN 2 % CREAM Apply to affected area BID for up to 10 days BACTROBAN 2 % CREAM 340377 MUPIROCIN CALCIUM Inactive MAGNESIUM CITRATE 1.745 GM/30ML ORAL SOLN 150ml po BID PRN C onstipation MAGNESIUM CITRATE 1.745 GM/30ML ORAL SOLN 245362 0 MAGNESIUM CITRATE Inactive DIFLUCAN 150 MG TAB 1 tablet by mouth qod DIFLUCAN 150 MG TAB 981204 FLUCONAZOLE Inactive BACTRIM DS 800-160 MG TAB 1 tab by mouth twice daily 2 BACTRIM DS 800-160 MG TAB 982864 TRIMETHOPRIM-SULFAMETHOXAZOLE Inac tive CIPRO 500 MG TAB 1 tablet by mouth twice daily CIPRO 500 MG TAB 441519 CIPROFLOXACIN HCL Inactive FLUCONAZOLE 150 MG TABS take 1 tab po qday once 04/06 FLUCONAZOLE 150 MG TABS 594863 FLUCONAZOLE Inactive ZITHROMAX Z-KARTHIK 250 MG TABS 2 today, then 1 daily for 4 days 201 09/18/28 ZITHROMAX Z-KARTHIK 250 MG TABS 8532421 AZITHROMYCIN Inac tive PREDNISONE 20 MG TAB 2 tabs daily for 3 days, 1 t ab daily for 3 days, 1/2 tab daily for 2 days PREDNISONE 20 MG TAB 823041 PREDNISON E Inactive AZITHROMYCIN 250 MG TABS 2 po qd x 1 day, then 1 po qd x 4 days AZITHROMYCIN 250 MG TABS 6334750 AZITHROMYCIN Inactiv e PREDNISONE 20 MG TAB 2 tabs daily for 3 days, 1 t ab daily for 3 days, 1/2 tab daily for 2 days PREDNISONE 20 MG TAB 778870 PREDNISON E Inactive CEFDINIR 300 MG CAPS by mouth twice a day CEFDINIR 300 MG CAPS 827472 CEFDINIR Inactive TRIAMCINOLONE ACETONIDE 0.1 % OINT Apply to affected a reas TID for up to 2 weeks TRIAMCINOLONE ACETONIDE 0.1 % OINT 850878 6 TRIAMCINOLONE ACETONIDE Inactive PREDNISONE 20 MG TAB 2 tabs daily for 3 days, 1 t ab daily for 3 days, 1/2 tab daily for 2 days PREDNISONE 20 MG TAB 334711 PREDNISON E Inactive BACTRIM DS 800-160 MG TABS 1 po BID x 7 days 0 BACTRIM DS 800-160 MG TABS 682951 SULFAMETHOXAZOLE-TRIMETHOPRIM Inactive CIPRO 500 MG TAB 1 tablet by mouth twice daily CIPRO 500 MG TAB 379962 CIPROFLOXACIN HCL Inactive AZITHROMYCIN 250 MG TABS 2 po qd x 1 day, then 1 po qd x 4 days AZITHROMYCIN 250 MG TABS 5148498 AZITHROMYCIN Inactiv e FLAGYL 500 MG TAB 1 tablet by mouth bid FLAGYL 500 MG TAB 249939 METRONIDAZOLE Inactive AZITHROMYCIN 250 MG TABS 2 po qd x 1 day, then 1 po qd x 4 days AZITHROMYCIN 250 MG TABS 2554750 AZITHROMYCIN Inactiv e Immunizations Vaccine Administration Date [...] ... - Chemistry sodium, serum 141 mmol/L 854-362 5743/01/26 carbon dioxide, venous blood 30.0 mmol/L 21.0-32 .0 potassium, serum 4.0 mmol/L 3.5-5.2 chloride, serum 105 mmol/L 98-107 blood glucose 85 mg/dL 65-110 urea nitrogen, blood 9 mg/dL 7-18 creatinine, serum 0.66 mg/dL 0.55-1.30 alanine aminotransferase (SGPT), serum 31 U/L 12-78 aspartate aminotransferase (SGOT), serum 21 U/L 15-37 calcium, serum 8.2 mg/dL 8.5-10.1 bilirubin, serum, total 1.10 mg/dL 0.00-1.00 cholesterol, serum 178 mg/dL 862-155 1455/01/26 triglyceride, serum, fasting 149 mg/dL 30-200 HDL [...] ... - Chemistry sodium, serum 137 mmol/L 722-694 3057/05/27 carbon dioxide, venous blood 29.1 mmol/L 21.0-32 [...] 5.0-8.5 Encounters Code Encounter Date Provider Facility CPT-10463 Level 2 Est. Patient 19:53:27 CDT Tanner hill MD [facility] CPT-47184 Level 3 Est. Patient 09:15:34 CDT Efren almendarez [facility] CPT-05643 Level 3 Est. Patient 11:28:51 ARTIFICIAL INSEMINATION TECHNICIAN Efren almendarez [facility] CPT-82147 Level 4 Est. Patient 13:55:46 ARTIFICIAL INSEMINATION TECHNICIAN Checo Conklin MD [facility] CPT-09273 Level 4 Est. Patient 17:10:53 CDT Checo Conklin MD [facility] CPT-17274 Level 3 Est. Patient 15:56:22 CDT Checo Conklin MD [facility] CPT-36582 Level 3 Est. Patient 15:29:07 CDT Checo Conklin MD [facility] CPT-54986 Level 3 Est. Patient 14:38:41 CDT Checo Conklin MD [facility] CPT-36864 Level 3 Est. Patient 15:22:03 ARTIFICIAL INSEMINATION TECHNICIAN Thomas reynolds DO [facility] CPT-64545 Level 3 Est. Patient 13:34:17 ARTIFICIAL INSEMINATION TECHNICIAN Checo Conklin MD [facility] CPT-93091 Level 3 Est. Patient 12:29:32 CDT Dangelo arroyo MD [facility] CPT-06616 Level 3 Est. Patient 16:53:02 CDT Checo Conklin MD [facility] CPT-92499 Level 3 Est. Patient 16:37:13 CDT Checo Conklin MD [facility] CPT-08944 Level 3 Est. Patient 16:16:59 CDT Paul Hamlin MD [facility] CPT-96738 Level 3 Est. Patient 14:20:13 CDT Dangelo arroyo MD [facility] CPT-63005 Level 4 Est. Patient 11:29:33 CDT Checo Conklin MD [facility]-85379 Level 3 Est. Patient 17:08:31 CDT Checo Conklin MD [facility] CPT-83707 Level 3 Est. Patient 16:50:42 ARTIFICIAL INSEMINATION TECHNICIAN Checo Conklin MD [facility] CPT-30142 Level 4 Est. Patient 09:26:08 ARTIFICIAL INSEMINATION TECHNICIAN Checo Conklin MD [facility] CPT-69850 Level 3 Est. Patient 11:37:10 CDT Checo Conklin MD [facility] CPT-80821 Level 4 Est. Patient 14:07:38 CDT Checo Conklin MD [facility] CPT-88762 Level 3 Est. Patient 09:54:41 CDT Checo Conklin MD [facility] CPT-30282 Level 3 Est. Patient 11:10:54 CDT Paul Hamlin MD [facility] CPT-80047 Level 3 Est. Patient 14:16:56 ARTIFICIAL INSEMINATION TECHNICIAN Checo Conklin MD [facility] CPT-14317 Level 3 Est. Patient 11:04:11 ARTIFICIAL INSEMINATION TECHNICIAN Checo Conklin MD [facility] CPT-75759 Level 3 Est. Patient 17:09:26 CDT Dangelo arroyo MD [facility] CPT-53421 Level 3 Est. Patient 16:54:37 CDT Checo Conklin MD [facility] Procedures Code Procedure Name Date Entry Date Standard Desc ription CPT-LR Lesion Removal 19:53:27 CDT CPT-OV Office Visit 11:31:28 CDT CPT-05360 Tubersol 09:39:29 CDT CPT-J2550 Phenergan 25 mg (Promethazine) 13:59:02 ARTIFICIAL INSEMINATION TECHNICIAN CPT-J1885 Toradol 60 mg (Ketorolac) 13:59:02 ARTIFICIAL INSEMINATION TECHNICIAN 2012
--- OUTSIDE RECORDS SUMMARY | 2019-09-29 02:03 | XMS REPORT | Clinical Summary ---
Author Author Admin, Bethany Ayala [facility] Address Unknown Phone Unavailable Allergies, Adverse [...] musculoskeletal systems Abdominal pain, generalized 789.07 Active Efern Medel APRN Abdominal pain, generalized Nausea 787.02 [...] out daily, for acid reflux PANTOPRAZOLE SODIUM 29106999817 Active Fan Méndez LPN Active FLAGYL 500 MG ORAL TABLET 1 tablet by mouth bid 08/29 METRONIDAZOLE 52408964479 Active Corry Méndez LPN Acti ve CLARITHROMYCIN 500 MG ORAL TABLET 1 tab po BID x 14 days CLARITHROMYCIN 77683017657 Active Corry Méndez LPN Act mike AMOXICILLIN 500 MG ORAL CAPSULE 2 po BID x 14 days for H. Pylori AMOXICILLIN 69702676677 Active Corry Méndez LPN Active PAROXETINE HCL 20 MG ORAL TABLET 1.5 po qd PAR OXETINE HCL 90076482987 Active Checo Conklin MD Active FLUTICASONE PROPIONATE 50 MCG/ACT NASAL SUSPENSION 2 s prays/nostril qd PRN Congestion/Allergies FLUTICASONE PROPIONATE 5510153457 9 No Longer Active Checo Conklin MD Active AMOXICILLIN 500 MG ORAL CAPSULE 2 po BID x 10 days 201 01/15/27 AMOXICILLIN 02362805917 No Longer Active Checo Conklin MD Activ e MIRALAX ORAL POWDER 8.5 to 17g po qd PRN Constipation POLYETHYLENE GLYCOL 3350 57583505760 Active Checo Conklin MD Active CLARITIN 10 MG ORAL TABLET 1 tablet by mouth daily as needed for allergies LORATADINE 13831678005 No Longer Active Checo Ortiz MD Active BACTRIM DS 800-160 MG ORAL TABLET 1 tab by mouth twice daily 201 12/19/26 TRIMETHOPRIM-SULFAMETHOXAZOLE 86168472675 No Longer Active Ragini Carrillo MD Active DIFLUCAN 150 MG ORAL TABLET 1 tablet by mouth qod 2015 FLUCONAZOLE 86385955508 No Longer Active Efren Medel POLE SANDER OPERATOR Act mike AZITHROMYCIN 250 MG ORAL TABLET 2 po qd x 1 day, then 1 po q d x 4 days AZITHROMYCIN 13891322437 No Longer Active Efren flores POLE SANDER OPERATOR Active FLAGYL 500 MG ORAL TABLET 1 tablet by mouth bid 04/13 METRONIDAZOLE 32970485290 No Longer Active Checo Conklin MD Acti ve FOCALIN XR 10 MG ORAL CAPSULE EXTENDED RELEASE 24 HOUR 1 po q a.m. DEXMETHYLPHENIDATE HCL 98652826725 Active Checo Conklin MD Active MAGNESIUM CITRATE 1.745 GM/30ML ORAL SOLUTION 150ml po BID P RN Constipation MAGNESIUM CITRATE 30629910237 No Longer Active Checo Conklin MD Active BACTROBAN 2 % EXTERNAL CREAM Apply to affected area BID for up to 10 days MUPIROCIN CALCIUM 62775934816 No Longer Active Checo Conklin MD Active HYDROCODONE-ACETAMINOPHEN 5-325 MG ORAL TABLET 1 tab b y mouth every 6 hours as needed HYDROCODONE-ACETAMINOPHEN 92776885562 No Longer Active Checo Conklin MD Active IBUPROFEN 800 MG ORAL TABLET 1 tab every 8 hours with food 03/20 IBUPROFEN 03678717099 No Longer Active Checo Conklin MD Active DIFLUCAN 150 MG ORAL TABLET 1 tablet by mouth if neede d, hold until symptoms start FLUCONAZOLE 64569344762 No Longer Active Checo Conklin MD Active BACTRIM DS 800-160 MG ORAL TABLET 1 tab by mouth twice daily 201 11/23/03 TRIMETHOPRIM-SULFAMETHOXAZOLE 00315877505 No Longer Active K bernice Méndez LPN Active HYDROCODONE-ACETAMINOPHEN 5-325 MG ORAL TABLET 0.5 to 1 tab by mouth every 6 hours as needed HYDROCODONE-ACETAMINOPHEN 13927614600 No Longer Active Checo Conklin MD Active ONDANSETRON 8 MG ORAL TABLET DISINTEGRATING place one tablet on tongue and allow to dissolve every 6 hours as needed for vomitting ONDANSETRON 95013205048 No Longer Active Checo Conklin MD Activ e COMPRO 25 MG RECTAL SUPPOSITORY insert or apply one garza ppository rectally as directed every 12 hours as needed for nausea PROCHLORPERAZINE 97861151741 No Longer Active Checo Conklin MD A ctive SUMATRIPTAN SUCCINATE 100 MG ORAL TABLET Take one PRN for migran e SUMATRIPTAN SUCCINATE 78502299317 No Longer Active Checo Conklin MD Active TRAVEL SICKNESS 25 MG ORAL TABLET CHEWABLE chew and sw allow one tablet every 6 hours as needed MECLIZINE HCL 96929880118 No Longer A ctive Checo Conklin MD Active BUPROPION HCL ER (SR) 100 MG ORAL TABLET EXTENDED RELE ASE 12 HOUR take one tablet by mouth one time daily for one week then take 1 two times daily BUPROPION HCL 32380597595 No Longer Active Checo gallagher MD Active TERBINAFINE HCL 250 MG ORAL TABLET take one table PO one time da moises TERBINAFINE HCL 79612088481 No Longer Active Checo Conklin MD Active METOCLOPRAMIDE HCL 10 MG ORAL TABLET take one PO tid PRN nausea METOCLOPRAMIDE HCL 56364600772 No Longer Active Checo Conklin MD Active DICLOFENAC SODIUM 75 MG ORAL TABLET DELAYED RELEASE 1 tablet by mouth twice daily PRN Knee pain DICLOFENAC SODIUM 23649990677 No Longer Active Checo Conklin MD Active LAMISIL 250 MG ORAL TABLET 1 po qd TERBINAFI NE HCL 77550727019 No Longer Active Checo Conklin MD Active REGLAN 10 MG ORAL TABLET 1 po TID PRN Nausea 3 METOCLOPRAMIDE HCL 27348902581 No Longer Active Checo Conklin MD Active CELEXA 20 MG ORAL TABLET 1 tablet by mouth daily 09/26 CITALOPRAM HYDROBROMIDE 48325960700 No Longer Active Checo Conklin MD Active AZITHROMYCIN 250 MG ORAL TABLET 2 po qd x 1 day, then 1 po q d x 4 days AZITHROMYCIN 40772729197 No Longer Active Checo Ortiz MD Active HYDROCODONE-ACETAMINOPHEN 5-325 MG ORAL TABLET 1 po q 6hr PRN Pa in HYDROCODONE-ACETAMINOPHEN 86464901780 No Longer Active Lenora Conklin MD Active PHENAZOPYRIDINE HCL 200 MG ORAL TABLET take 1 tab po TID for bladder pain PHENAZOPYRIDINE HCL 00701930618 No Longer Active Joe Conklin MD Active CIPRO 500 MG ORAL TABLET 1 tablet by mouth twice daily CIPROFLOXACIN HCL 11967601658 No Longer Active Dangelo Rangel MD Active HYDROCODONE-ACETAMINOPHEN 5-325 MG ORAL TABLET 1/2 to 1 po q 4 hours prn cough HYDROCODONE-ACETAMINOPHEN 25219538249 No Longer Activ candy Rangel MD Active BACTRIM DS 800-160 MG ORAL TABLET 1 po BID x 7 days 29/04/10 SULFAMETHOXAZOLE-TRIMETHOPRIM 78777370727 No Longer Active Checo Conklin MD Active PREDNISONE 20 MG ORAL TABLET 2 tabs daily for 3 days, 1 tab daily for 3 days, 1/2 tab daily for 2 days PREDNISONE 20294740978 No Longer Active Checo Conklin MD Active TRIAMCINOLONE ACETONIDE 0.1 % EXTERNAL OINTMENT Apply to affected areas TID for up to 2 weeks TRIAMCINOLONE ACETONIDE 45139146661 No Longer Active Checo Conklin MD Active CEFDINIR 300 MG ORAL CAPSULE by mouth twice a day 2013 CEFDINIR 67027223957 No Longer Active Dangelo Rangel MD Acti ve BUPROPION HCL ER (SMOKING DET) 150 MG ORAL TABLET EXTE NDED RELEASE 12 HOUR 1 a day for 1 week then 1 twice a day BUPROPION HCL (SMOKING DETER) 70437160936 No Longer Active Checo Conklin MD Active SIMVASTATIN 20 MG ORAL TABLET 1 po qd SIMVASTAT IN 33228564759 Active Checo Conklin MD Active CHANTIX STARTING MONTH KARTHIK 0.5 MG X 11 & 1 MG X 42 ORA L TABLET 0.5mg daily for 3 days, then 0.5mg BID for 4 days, then 1mg BID VARENICLINE TARTRATE 19062152198 No Longer Active Checo Conklin MD Activ e XANAX 0.5 MG ORAL TABLET 1 po BID PRN anxiety A LPRAZOLAM 91305533951 Active Checo Conklin MD Active CONCERTA 18 MG ORAL TABLET EXTENDED RELEASE 1 po q a.m. METHYLPHENIDATE HCL 91243035896 No Longer Active Checo Conklin MD Active AMBIEN 5 MG ORAL TABLET 1 po qHS PRN Insomnia Z OLPIDEM TARTRATE 84988895701 Active Checo Conklin MD Active TRAZODONE HCL 100 MG ORAL TABLET 0.5 to 1 po qHS PRN Insomnia 20 30/07/08 TRAZODONE HCL 26389076588 No Longer Active Checo Conklin MD Active FIORICET 325-50-40 MG TAB 1 tablet by mouth four times daily as needed [id number] 18693963611 No Longer Active Checo Conklin MD Active PHENERGAN CREAM* 25mg applied to wrist q6hr PRN Nausea PHENERGAN CREAM* No Longer Active Checo Conklin MD A ctive FLONASE 50 MCG/ACT NASAL SUSPENSION 1 spray each nostril am and hs FLUTICASONE PROPIONATE 41421856334 No Longer Active Checo Conklin MD Active ANTIPYRINE-BENZOCAINE 5.4-1.4 % OTIC SOLUTION 1-2 drops in affec yohannes ear BENZOCAINE-ANTIPYRINE 10488784991 No Longer Active Checo Conklin MD Active CEFDINIR 300 MG ORAL CAPSULE 1 po bid CEFDINIR 82668836439 No Longer Active Checo Conklin MD Active PREDNISONE 20 MG ORAL TABLET 2 tabs daily for 3 days, 1 tab daily for 3 days, 1/2 tab daily for 2 days PREDNISONE 30258052641 No Longer Active Checo Conklin MD Active AZITHROMYCIN 250 MG ORAL TABLET 2 po qd x 1 day, then 1 po q d x 4 days AZITHROMYCIN 61115406448 No Longer Active Checo Ortiz MD Active PREDNISONE 20 MG ORAL TABLET 2 tabs daily for 3 days, 1 tab daily for 3 days, 1/2 tab daily for 2 days PREDNISONE 41473940104 No Longer Active Checo Conklin MD Active ZITHROMAX Z-KARTHIK 250 MG ORAL TABLET 2 today, then 1 daily for 4 d ays AZITHROMYCIN 09547054609 No Longer Active Paul Hamlin MD Active FOCALIN XR 10 MG ORAL CAPSULE EXTENDED RELEASE 24 HOUR 1 po q a. m. DEXMETHYLPHENIDATE HCL 42294844266 No Longer Active Paul Hamlin MD Active PERCOCET 10-325 MG ORAL TABLET 1 tablet every 6 hours as needed for pain OXYCODONE-ACETAMINOPHEN 48213018211 No Longer Active Paul Hamlin MD Active LORTAB 5-500 MG ORAL TABLET 1/2 to 1 tablet by mouth e very 4 hours as needed for pain HYDROCODONE-ACETAMINOPHEN 89807714235 No Longer Active Checo Conklin MD Active FOCALIN XR 15 MG ORAL CAPSULE EXTENDED RELEASE 24 HOUR 1 po q a. m. DEXMETHYLPHENIDATE HCL 39822517858 No Longer Active Checo Conklin MD Active ZOFRAN ODT 4 MG ORAL TABLET DISINTEGRATING 1 po q6hr PRN Nausea ONDANSETRON 80257270812 No Longer Active Checo Conklin MD Active PERCOCET 5-325 MG ORAL TABLET 1 tablet by mouth every 6 hour s as needed OXYCODONE-ACETAMINOPHEN 45044680485 No Longer Active Checo Conklin MD Active PYRIDIUM 200 MG ORAL TABLET take 1 tab po TID prn urinary pain. PHENAZOPYRIDINE HCL 31151255781 No Longer Active Checo Joshua Active FLUCONAZOLE 150 MG ORAL TABLET take 1 tab po qday once FLUCONAZOLE 95773849781 No Longer Active Dangelo Rangel MD Acti ve CIPRO 500 MG ORAL TABLET 1 tablet by mouth twice daily CIPROFLOXACIN HCL 20760832760 No Longer Active Dangelo Rangel MD Active PYRIDIUM 200 MG ORAL TABLET take 1 tab po TID prn urinary pain. PYRIDIUM 200 MG ORAL TABLET 7368885 PHENAZOPYRIDINE HCL Inactive PERCOCET 5-325 MG ORAL TABLET 1 tablet by mouth every 6 hour s as needed PERCOCET 5-325 MG ORAL TABLET 7754181 OXYCODONE-ACETAMINOPHEN Inactive ZOFRAN ODT 4 MG ORAL TABLET DISINTEGRATING 1 po q6hr PRN Nausea ZOFRAN ODT 4 MG ORAL TABLET DISINTEGRATING 131422 ONDAN SETRON Inactive FOCALIN XR 15 MG ORAL CAPSULE EXTENDED RELEASE 24 HOUR 1 po q a. m. FOCALIN XR 15 MG ORAL CAPSULE EXTENDED RELEASE 24 HOUR DEXMETHYLPHENIDATE HCL Inactive LORTAB 5-500 MG ORAL TABLET 1/2 to 1 tablet by mouth e very 4 hours as needed for pain LORTAB 5-500 MG ORAL TABLET 864197 HYDROCODONE-ACETAMINOPHEN Inactive PERCOCET 10-325 MG ORAL TABLET 1 tablet every 6 hours as needed for pain PERCOCET 10-325 MG ORAL TABLET 7143502 OXYCODONE-ACETAMI NOPHEN Inactive FOCALIN XR 10 MG ORAL CAPSULE EXTENDED RELEASE 24 HOUR 1 po q a. m. FOCALIN XR 10 MG ORAL CAPSULE EXTENDED RELEASE 24 HOUR DEXMETHYLPHENIDATE HCL Inactive CEFDINIR 300 MG ORAL CAPSULE 1 po bid CEFDINI R 300 MG ORAL CAPSULE 869886 CEFDINIR Inactive ANTIPYRINE-BENZOCAINE 5.4-1.4 % OTIC SOLUTION 1-2 drops in affec yohannes ear ANTIPYRINE-BENZOCAINE 5.4-1.4 % OTIC SOLUTION 938549 BENZOCAINE-ANTIPYRINE Inactive FLONASE 50 MCG/ACT NASAL SUSPENSION 1 spray each nostril am and hs FLONASE 50 MCG/ACT NASAL SUSPENSION 6419063 FLUTICASONE PROPIONATE I nactive PHENERGAN CREAM* 25mg applied to wrist q6hr PRN Nausea PHENERGAN CREAM* Inactive FIORICET 325-50-40 MG TAB 1 tablet by mouth four times daily as needed FIORICET 325-50-40 MG TAB ACETAMINOPHEN-C AFF-BUTALBITAL Inactive TRAZODONE HCL 100 MG ORAL TABLET 0.5 to 1 po qHS PRN Insomnia 20 30/07/08 TRAZODONE HCL 100 MG ORAL TABLET 392024 TRAZODONE HCL Inactive CONCERTA 18 MG ORAL [...] cough HYDROCODONE-ACETAMINOPHEN 5-325 MG ORAL TABLET 8 10960 HYDROCODONE-ACETAMINOPHEN Inactive PHENAZOPYRIDINE HCL 200 MG ORAL TABLET take 1 tab po TID for bladder pain PHENAZOPYRIDINE HCL 200 MG ORAL TABLET 4530455 PHENAZOPYRIDINE HCL Inactive HYDROCODONE-ACETAMINOPHEN 5-325 MG ORAL TABLET 1 po q 6hr PRN Pa in HYDROCODONE-ACETAMINOPHEN 5-325 MG ORAL TABLET 960776 HYDROCODONE-ACETAMINOPHEN Inactive CELEXA 20 MG ORAL TABLET 1 tablet by mouth daily 09/26 CELEXA 20 MG ORAL TABLET 355166 CITALOPRAM HYDROBROMIDE Inactive REGLAN 10 MG ORAL TABLET 1 po TID PRN Nausea 3 REGLAN 10 MG ORAL TABLET 601563 METOCLOPRAMIDE HCL Inactive LAMISIL 250 MG ORAL TABLET 1 po qd L AMISIL 250 MG ORAL TABLET 397382 TERBINAFINE HCL Inactive DICLOFENAC SODIUM 75 MG ORAL TABLET DELAYED RELEASE 1 tablet by mouth twice daily PRN Knee pain DICLOFENAC SODIUM 75 MG ORAL TABLET DELAYED RELEASE 495952 DICLOFENAC SODIUM Inactive METOCLOPRAMIDE HCL 10 MG ORAL TABLET take one PO tid PRN nausea METOCLOPRAMIDE HCL 10 MG ORAL TABLET 475087 METOCLOPRAM ZACH HCL Inactive TERBINAFINE HCL 250 MG ORAL TABLET take one table PO one time da moises TERBINAFINE HCL 250 MG ORAL TABLET 452953 TERBINAFINE H CL Inactive BUPROPION HCL ER [...] SICKNESS 25 M G ORAL TABLET CHEWABLE 851424 MECLIZINE HCL Inactive SUMATRIPTAN SUCCINATE 100 MG ORAL TABLET Take one PRN for migran e SUMATRIPTAN SUCCINATE 100 MG ORAL TABLET 600623 SUMATRIPTAN SUCCINATE Inactive COMPRO 25 MG RECTAL SUPPOSITORY insert or apply one garza ppository rectally as directed every 12 hours as needed for nausea COMPRO 25 MG RECTAL SUPPOSITORY 181227 PROCHLORPERAZINE Inactive ONDANSETRON 8 MG ORAL TABLET DISINTEGRATING place one tablet on tongue and allow to dissolve every 6 hours as needed for vomitting ONDANSETRON 8 MG ORAL TABLET DISINTEGRATING 729354 ONDANSETRON Inactive HYDROCODONE-ACETAMINOPHEN 5-325 MG ORAL TABLET 0.5 to 1 tab by mouth every 6 hours as needed HYDROCODONE-ACETAMIN OPHEN 5-325 MG ORAL TABLET 451375 HYDROCODONE-ACETAMINOPHEN Inactive BACTRIM DS 800-160 MG ORAL TABLET 1 tab by mouth twice daily 201 11/23/03 BACTRIM DS 800-160 MG ORAL TABLET 259988 TRIMETHOPRIM-SULFAMETHOXAZOLE Inactive DIFLUCAN 150 MG ORAL TABLET 1 tablet by mouth if neede d, hold until symptoms start DIFLUCAN 150 MG ORAL TABLET 036343 FLUCONAZ OLE Inactive IBUPROFEN 800 MG ORAL TABLET 1 tab every 8 hours with food 03/20 IBUPROFEN 800 MG ORAL TABLET 371389 IBUPROFEN [place] ctive HYDROCODONE-ACETAMINOPHEN 5-325 MG ORAL TABLET 1 tab b y mouth every 6 hours as needed HYDROCODONE-ACETAMINOPHEN 5-325 MG ORAL TABLET 197346 HYDROCODONE-ACETAMINOPHEN Inactive BACTROBAN 2 % EXTERNAL CREAM Apply to affected area BID for up to 10 days BACTROBAN 2 % EXTERNAL CREAM 727616 MUPIROCIN CA LCIUM Inactive MAGNESIUM CITRATE 1.745 GM/30ML ORAL SOLUTION 150ml po BID P RN Constipation MAGNESIUM CITRATE 1.745 GM/30ML ORAL SOLUTION 10 45808 MAGNESIUM CITRATE Inactive DIFLUCAN 150 MG ORAL TABLET 1 tablet by mouth qod 2015 DIFLUCAN 150 MG ORAL TABLET 020705 FLUCONAZOLE Inactive BACTRIM DS 800-160 MG ORAL TABLET 1 tab by mouth twice daily 201 12/19/26 BACTRIM DS 800-160 MG ORAL TABLET 197997 TRIMETHOPRIM-SULFAMETHOXAZOLE Inactive CLARITIN 10 MG ORAL TABLET 1 tablet by mouth daily as needed for allergies CLARITIN 10 MG ORAL TABLET 555406 LORATADINE I nactive FLUTICASONE PROPIONATE 50 MCG/ACT NASAL SUSPENSION 2 s prays/nostril qd PRN Congestion/Allergies FLUTICASONE PROPION ATE 50 MCG/ACT NASAL SUSPENSION 5177820 FLUTICASONE PROPIONATE Inactive CIPRO 500 MG ORAL TABLET 1 tablet by mouth twice daily CIPRO 500 MG ORAL TABLET 867599 CIPROFLOXACIN HCL Inactive FLUCONAZOLE 150 MG ORAL TABLET take 1 tab po qday once FLUCONAZOLE 150 MG ORAL TABLET 959747 FLUCONAZOLE Inactive ZITHROMAX Z-KARTHIK 250 MG ORAL TABLET 2 today, then 1 daily for 4 d ays ZITHROMAX Z-KARTHIK 250 MG ORAL TABLET 796178 AZITHROMYCIN Inactive PREDNISONE 20 MG ORAL TABLET 2 tabs daily for 3 days, 1 tab daily for 3 days, 1/2 tab daily for 2 days PREDNISONE 20 MG ORAL T ABLET 770228 PREDNISONE Inactive AZITHROMYCIN 250 MG ORAL TABLET 2 po qd x 1 day, then 1 po q d x 4 days AZITHROMYCIN 250 MG ORAL TABLET 725902 AZITHROMY SPARKLE Inactive PREDNISONE 20 MG ORAL TABLET 2 tabs daily for 3 days, 1 tab daily for 3 days, 1/2 tab daily for 2 days PREDNISONE 20 MG ORAL TABLET 258976 PREDNISONE Inactive CEFDINIR 300 MG ORAL CAPSULE by mouth twice a day 2013 CEFDINIR 300 MG ORAL CAPSULE 787951 CEFDINIR Inactive TRIAMCINOLONE ACETONIDE 0.1 % EXTERNAL OINTMENT Apply to affected areas TID for up to 2 weeks TRIAMCINOLONE ACETON ZACH 0.1 % EXTERNAL OINTMENT 2913864 TRIAMCINOLONE ACETONIDE Inactive PREDNISONE 20 MG ORAL TABLET 2 tabs daily for 3 days, 1 tab daily for 3 days, 1/2 tab daily for 2 days PREDNISONE 20 MG ORAL T ABLET 474783 PREDNISONE Inactive BACTRIM DS 800-160 MG ORAL TABLET 1 po BID x 7 days 29/04/10 BACTRIM DS 800-160 MG ORAL TABLET 186600 SULFAMETHOXAZOLE-TRIMETHOP RIM Inactive CIPRO 500 MG ORAL TABLET 1 tablet by mouth twice daily CIPRO 500 MG ORAL TABLET 898184 CIPROFLOXACIN HCL Inactive AZITHROMYCIN 250 MG ORAL TABLET 2 po qd x 1 day, then 1 po q d x 4 days AZITHROMYCIN 250 MG ORAL TABLET 643038 AZITHROMY SPARKLE Inactive FLAGYL 500 MG ORAL TABLET 1 tablet by mouth bid 04/13 FLAGYL 500 MG ORAL TABLET 365051 METRONIDAZOLE Inactive AZITHROMYCIN 250 MG ORAL TABLET 2 po qd x 1 day, then 1 po q d x 4 days AZITHROMYCIN 250 MG ORAL TABLET 172274 AZITHROMY SPARKLE Inactive AMOXICILLIN 500 MG ORAL CAPSULE 2 po BID x 10 days 201 01/15/27 AMOXICILLIN 500 MG ORAL CAPSULE 929482 AMOXICILLIN Inactive Immunizations Vaccine Administration Date Value [...] PANEL - Chemistry cholesterol, serum 192 mg/dL 557-703 2164/02/20 HDL cholesterol, serum 31 mg/dL > OR [...] 11 .0-15.0 platelet count 218 THOUSAND/UL 10*3/mm3 963-546 8735/02/20 mean platelet volume 9.7 fL 7.5-12.5 Lab Report: Comp. Metabolic Panel, Eryth rocyte Sed Rate, UADIP W/MICRO, ... - Chemistry protein, total urine random Negative mg/dL Negative sodium, serum 139 mmol/L 798-477 4391/11/28 carbon dioxide, venous blood 26.0 mmol/L 21.0-32 [...] Negative Encounters Code Encounter Date Provider Facility CPT-49907 Level 3 Est. Patient 11:24:55 E/M ENGINEER Efren almendarez [facility] CPT-84821 Level 3 Est. Patient 13:05:44 CDT Paul Hamlin MD [facility] CPT-63031 Level 3 Est. Patient 11:29:55 CDT Checo Conklin MD [facility] CPT-54517 Level 4 Est. Patient 11:08:12 E/M ENGINEER Checo Conklin MD [facility] CPT-25779 Level 4 Est. Patient 16:06:48 E/M ENGINEER Checo Conklin MD [facility] CPT-97850 Level 3 Est. Patient 09:11:49 CDT Efren almendarez [facility] CPT-92891 Level 2 Est. Patient 19:53:27 CDT Tanner hill MD [facility] CPT-85407 Level 3 Est. Patient 09:15:34 CDT Efren almendarez [facility] CPT-60733 Level 3 Est. Patient 11:28:51 E/M ENGINEER Efren almendarez [facility] CPT-80351 Level 4 Est. Patient 13:55:46 E/M ENGINEER Checo Conklin MD [facility] CPT-99889 Level 4 Est. Patient 17:10:53 CDT Checo Conklin MD [facility] CPT-94942 Level 3 Est. Patient 15:56:22 CDT Checo Conklin MD [facility] CPT-45478 Level 3 Est. Patient 15:29:07 CDT Checo Conklin MD [facility] CPT-55430 Level 3 Est. Patient 14:38:41 CDT Checo Conklin MD [facility] CPT-01008 Level 3 Est. Patient 15:22:03 E/M ENGINEER Thomas reynolds DO [facility] CPT-91519 Level 3 Est. Patient 13:34:17 E/M ENGINEER Checo Conklin MD [facility] CPT-28311 Level 3 Est. Patient 12:29:32 CDT Dangelo arroyo MD [facility] CPT-82483 Level 3 Est. Patient 16:53:02 CDT Checo Conklin MD [facility] CPT-17415 Level 3 Est. Patient 16:37:13 CDT Checo Conklin MD [facility] CPT-23229 Level 3 Est. Patient 16:16:59 CDT Paul Hamlin MD [facility] CPT-74152 Level 3 Est. Patient 14:20:13 CDT Dangelo arroyo MD [facility] [place]-00467 Level 4 Est. Patient 11:29:33 CDT Checo Conklin MD [facility] CPT-02077 Level 3 Est. Patient 17:08:31 CDT Checo Conklin MD [facility] CPT-98422 Level 3 Est. Patient 16:50:42 E/M ENGINEER Checo Conklin MD [facility] CPT-68257 Level 4 Est. Patient 09:26:08 E/M ENGINEER Checo Conklin MD [facility] CPT-14655 Level 3 Est. Patient 11:37:10 CDT Checo Conklin MD [facility] CPT-94622 Level 4 Est. Patient 14:07:38 CDT Checo Conklin MD [facility] CPT-59242 Level 3 Est. Patient 09:54:41 CDT Checo Conklin MD [facility] CPT-10194 Level 3 Est. Patient 11:10:54 CDT Paul Hamlin MD [facility] [place]-35328 Level 3 Est. Patient 14:16:56 E/M ENGINEER Checo Conklin MD [facility] [place]-06868 Level 3 Est. Patient 11:04:11 E/M ENGINEER Checo Conklin MD [facility] CPT-18512 Level 3 Est. Patient 17:09:26 CDT Dangelo arroyo MD [facility] CPT-83388 Level 3 Est. Patient 16:54:37 CDT Checo Conklin MD [facility] Procedures Code Procedure Name Date Entry Date Standard Desc ription CPT-79594 Abd compl w upright - XRAY USE ONLY 1 1:36:54 E/M ENGINEER CPT-41531 UA w micro - LAB USE ONLY 17:06:46 CDT 2015 CPT-43312 BHCG Qual - LAB USE ONLY 17:06:46 CDT 05/06 CPT-42653 CMP - LAB USE ONLY 17:06:46 CDT CPT-35859 CBC with Diff - LAB USE ONLY 17:06:45 CDT 2 CPT-96236 Venipuncture Draw Fee 17:06:45 CDT CPT-LR Lesion Removal 19:53:27 CDT CPT-OV Office Visit 11:31:28 CDT CPT-79995 Tubersol 09:39:29 CDT CPT-J2550 Phenergan 25 mg (Promethazine) 13:59:02 E/M ENGINEER CPT-J1885 Toradol 60 mg (Ketorolac) 13:59:02 E/M ENGINEER 2012
--- OUTSIDE RECORDS SUMMARY | 2019-09-29 02:03 | XMS REPORT | Clinical Summary ---
Author Author Admin, Bethany Gonzales Organization [facility] Address Unknown Phone Unavailable Allergies, Adverse Reactions, [...] vulvovaginitis, unspecified FH BREAST CANCER ICD-V16.3 Inactive Cehco Joshua FH DIABETES ICD-V18.0 Inactive Checo Conklin [...] 1 tablet by mouth bid METRONI DAZOLE [id number] No Longer Active Checo Conklin MD Active FOCALIN XR 10 MG ORAL [id number] 1 po q a.m. DEX METHYLPHENIDATE HCL 85303879254 Active Checo Conklin MD Active MAGNESIUM CITRATE 1.745 GM/30ML ORAL SOLN 150ml po BID PRN C onstipation MAGNESIUM CITRATE 82016350977 No Longer Active Checo Conklin MD Active BACTROBAN 2 % CREAM Apply to affected area BID for up to 10 days MUPIROCIN CALCIUM 92585073504 No Longer Active Checo Conklin MD Active HYDROCODONE-ACETAMINOPHEN 5-325 MG TABS 1 tab by mouth every 6 hours as needed HYDROCODONE-ACETAMINOPHEN 24035932092 No Longer Activ e Checo Conklin MD Active IBUPROFEN 800 MG TABS 1 tab every 8 hours with food 31/03/21 IBUPROFEN 18617760070 No Longer Active Checo Conklin MD Activ e DIFLUCAN 150 MG TAB 1 tablet by mouth if needed, hold until symptoms start FLUCONAZOLE 37210565784 No Longer Active Checo Ortiz MD Active BACTRIM DS 800-160 MG TAB 1 tab by mouth twice daily 2 TRIMETHOPRIM-SULFAMETHOXAZOLE 54332578866 No Longer Active Corry leong LPN Active MIRALAX PACK 1 po qd PRN Constipation POLYETHYL JOEL GLYCOL 3350 09277844068 Active Checo Conklin MD Active HYDROCODONE-ACETAMINOPHEN 5-325 MG TABS 0.5 to 1 tab b y mouth every 6 hours as needed HYDROCODONE-ACETAMINOPHEN 00393344072 No Longer Active Checo Conklin MD Active ONDANSETRON [address] one tablet on tongue and allow to dissolve every 6 hours as needed for vomitting ONDANSETRO N 71846936520 No Longer Active Checo Conklin MD Active COMPRO 25 MG RECTAL SUPP insert or apply one supposit ory rectally as directed every 12 hours as needed for nausea PROCHLORPERA ZINE 07864556009 No Longer Active Checo Conklin MD Active SUMATRIPTAN SUCCINATE 100 MG ORAL TABS Take one PRN for migrane SUMATRIPTAN SUCCINATE 02021014692 No Longer Active Checo Conklin MD Active TRAVEL SICKNESS 25 MG ORAL CHEW chew and swallow one t ablet every 6 hours as needed MECLIZINE HCL 06081715032 No Longer Active Joe Conklin MD Active BUPROPION HCL ER (SR) 100 MG ORAL [id number] take one t ablet by mouth one time daily for one week then take 1 two times daily BUPROPION HCL 10674050365 No Longer Active Checo Conklin MD Activ e TERBINAFINE HCL 250 MG ORAL TABS take one table PO one time abran y TERBINAFINE HCL 52634839760 No Longer Active Checo Conklin MD Active METOCLOPRAMIDE HCL 10 MG ORAL TABS take one PO tid PRN nausea 20 29/12/14 METOCLOPRAMIDE HCL 10298158979 No Longer Active Checo Conklin MD Active DICLOFENAC SODIUM 75 MG TBEC 1 tablet by mouth twice daily P RN Knee pain DICLOFENAC SODIUM 73600288488 No Longer Active Checo Conklin MD Active LAMISIL 250 MG TAB 1 po qd TERBINAFINE HCL 548 87093605 No Longer Active Checo Conklin MD Active REGLAN 10 MG TAB 1 po TID PRN Nausea METOCLOPRA MIDE HCL 63410607581 No Longer Active Checo Conklin MD Active CELEXA 20 MG TABS 1 tablet by mouth daily CITALOPRAM HYDROBROMIDE 18374439679 No Longer Active Checo Conklin MD Activ e AZITHROMYCIN 250 MG TABS 2 po qd x 1 day, then 1 po qd x 4 days AZITHROMYCIN 87077038234 No Longer Active Checo Conklin MD Active HYDROCODONE-ACETAMINOPHEN 5-325 MG TABS 1 po q 6hr PRN Pain 2013 HYDROCODONE-ACETAMINOPHEN 96940185469 No Longer Active Lenora Conklin MD Active PHENAZOPYRIDINE HCL 200 MG TABS take 1 tab po TID for bladder pa in PHENAZOPYRIDINE HCL 09021276232 No Longer Active Checo Joshua Active CIPRO 500 MG TAB 1 tablet by mouth twice daily CIPROFLOXACIN HCL 30564458935 No Longer Active Dangelo Rangel MD Active HYDROCODONE-ACETAMINOPHEN 5-325 MG TABS 1/2 to 1 po q 4 hour s prn cough HYDROCODONE-ACETAMINOPHEN 95028054388 No Longer Activ e Dangelo Rangel MD Active BACTRIM DS 800-160 MG TABS 1 po BID x 7 days 0 SULFAMETHOXAZOLE-TRIMETHOPRIM 48288117827 No Longer Active Checo Conklin MD Active PREDNISONE 20 MG TAB 2 tabs daily for 3 days, 1 t ab daily for 3 days, 1/2 tab daily for 2 days PREDNISONE 63843929894 No Longer Active Checo Conklin MD Active TRIAMCINOLONE ACETONIDE 0.1 % OINT Apply to affected a reas TID for up to 2 weeks TRIAMCINOLONE ACETONIDE 36476174291 No Longer A ctive Checo Conklin MD Active CEFDINIR 300 MG CAPS by mouth twice a day CEFDI JAZZY 41125548938 No Longer Active Dangelo Rangel MD Active BUPROPION HCL (SMOKING DETER) 150 MG [id number] 1 a day for 1 week then 1 twice a day BUPROPION HCL (SMOKING DETER) 81134509942 No Lo nger Active Checo Conklin MD Active SIMVASTATIN 20 MG TABS 1 po qd SIMVASTATIN 5875996768 5 Active Checo Conklin MD Active CHANTIX STARTING MONTH KARTHIK 0.5 MG X 11 & 1 MG X 42 TAB S 0.5mg daily for 3 days, then 0.5mg BID for 4 days, then 1mg BID VARENICLINE TARTRATE 74591794358 No Longer Active Checo Conklin MD Activ e XANAX 0.5 MG TABS 1 po BID PRN anxiety ALPRAZOLAM 91482967614 Active Checo Conklin MD Active CONCERTA 18 MG CR-TABS 1 po q a.m. METHYLPHENID ATE HCL 68570445352 No Longer Active Checo Conklin MD Active AMBIEN 5 MG TAB 1 po qHS PRN Insomnia ZOLPIDEM TARTRATE 04949622016 Active Checo Conklin MD Active TRAZODONE HCL 100 MG TAB 0.5 to 1 po qHS PRN Insomnia TRAZODONE HCL 80640397573 No Longer Active Checo Conklin MD Acti ve FIORICET 325-50-40 MG TAB 1 tablet by mouth four times daily as needed [id number] 18832960167 No Longer Active Checo Conklin MD Active PHENERGAN CREAM* 25mg applied to wrist q6hr PRN Nausea PHENERGAN CREAM* No Longer Active Checo Conklin MD A ctive FLONASE 50 MCG/ACT SUSP 1 spray each nostril am and hs FLUTICASONE PROPIONATE 53267119124 No Longer Active Checo Conklin MD Activ e ANTIPYRINE-BENZOCAINE 5.4-1.4 % SOLN 1-2 drops in affected ear BENZOCAINE-ANTIPYRINE 61117673780 No Longer Active Checo Conklin MD Active CEFDINIR 300 MG CAPS 1 po bid CEFDINIR 66504232 120 No Longer Active Checo Conklin MD Active PREDNISONE 20 MG TAB 2 tabs daily for 3 days, 1 t ab daily for 3 days, 1/2 tab daily for 2 days PREDNISONE 65306941865 No Longer Active Aracelis Conklin MD Active AZITHROMYCIN 250 MG TABS 2 po qd x 1 day, then 1 po qd x 4 days AZITHROMYCIN 30759509864 No Longer Active Checo Conklin MD Active PREDNISONE 20 MG TAB 2 tabs daily for 3 days, 1 t ab daily for 3 days, 1/2 tab daily for 2 days PREDNISONE 37584411203 No Longer Active Checo Conklin MD Active ZITHROMAX Z-KARTHIK 250 MG TABS 2 today, then 1 daily for 4 days 201 09/18/28 AZITHROMYCIN 17015284002 No Longer Active Paul Hamlin MD Active FOCALIN XR 10 MG [id number] 1 po q a.m. D EXMETHYLPHENIDATE HCL 99229676983 No Longer Active Paul Hamlin MD Activ e PERCOCET 10-325 MG TABS 1 tablet every 6 hours as needed for pain OXYCODONE-ACETAMINOPHEN 12597696277 No Longer Active Paul Hamlin MD Active LORTAB 5 5-500 MG TABS 1/2 to 1 tablet by mouth flaquito ry 4 hours as needed for pain HYDROCODONE-ACETAMINOPHEN 24167174181 No Longer Active Checo Conklin MD Active FOCALIN XR 15 MG [id number] 1 po q a.m. D EXMETHYLPHENIDATE HCL 89303571076 No Longer Active Checo Conklin MD Activ e ZOFRAN ODT 4 MG TBDP 1 po q6hr PRN Nausea ONDAN SETRON 27342657572 No Longer Active Checo Conklin MD Active PERCOCET 5-325 MG TABS 1 tablet by mouth every 6 hours as needed OXYCODONE-ACETAMINOPHEN 39390660837 No Longer Active Checo Conklin MD Active PYRIDIUM 200 MG TABS take 1 tab po TID prn urinary pain. 0 PHENAZOPYRIDINE HCL 41205611304 No Longer Active Checo Conklin MD Active FLUCONAZOLE 150 MG TABS take 1 tab po qday once 04/06 FLUCONAZOLE 89530532960 No Longer Active Dangelo Rangel MD Acti ve CIPRO 500 MG TAB 1 tablet by mouth twice daily CIPROFLOXACIN HCL 86566083657 No Longer Active Dangelo Rangel MD Active PYRIDIUM 200 MG TABS take 1 tab po TID prn urinary pain. 0 PYRIDIUM 200 MG TABS 2084080 PHENAZOPYRIDINE HCL Inactive PERCOCET 5-325 MG TABS 1 tablet by mouth every 6 hours as needed PERCOCET 5-325 MG TABS 3515722 OXYCODONE-ACETAMINOPHEN I nactive ZOFRAN ODT 4 MG TBDP 1 po q6hr PRN Nausea ZOFRAN ODT 4 MG TBDP 629840 ONDANSETRON Inactive FOCALIN XR 15 MG [id number] 1 po q a.m. F OCALIN XR 15 MG [id number] DEXMETHYLPHENIDATE HCL Inactive LORTAB 5 5-500 MG TABS 1/2 to 1 tablet by mouth flaquito ry 4 hours as needed for pain LORTAB 5 5-500 MG TABS HYDROCODONE-A CETAMINOPHEN Inactive PERCOCET 10-325 MG TABS 1 tablet every 6 hours as needed for pain PERCOCET 10-325 MG TABS 1648769 OXYCODONE-ACETAMINOPHEN Inactive FOCALIN XR 10 MG [id number] 1 po q a.m. F OCALIN XR 10 MG [id number] DEXMETHYLPHENIDATE HCL Inactive CEFDINIR 300 MG CAPS 1 po bid CEFDINIR 300 MG CAPS 20 0346 CEFDINIR Inactive ANTIPYRINE-BENZOCAINE 5.4-1.4 % SOLN 1-2 drops in affected ear ANTIPYRINE-BENZOCAINE 5.4-1.4 % SOLN 183932 BENZOCAINE-ANTIPYRINE I nactive FLONASE 50 MCG/ACT SUSP [...] PRN Insomnia TRAZODONE HCL 100 MG TAB 740503 TRAZODONE HCL Inactive CONCERTA 18 MG CR-TABS [...] s prn cough HYDROCODONE-ACETAMINOPHEN 5-325 MG TABS 298583 HYDROCODONE-ACETAMINOPHEN Inactive PHENAZOPYRIDINE HCL 200 MG TABS take 1 tab po TID for bladder pa in PHENAZOPYRIDINE HCL 200 MG TABS 0435136 PHENAZOPYRIDINE HCL Inactive HYDROCODONE-ACETAMINOPHEN 5-325 MG TABS 1 po q 6hr PRN Pain 2013 HYDROCODONE-ACETAMINOPHEN 5-325 MG TABS 595921 HYDROCODONE-ACETAMINOPHEN Inactive CELEXA 20 MG TABS 1 tablet by mouth daily CELEXA 20 MG TABS 773899 CITALOPRAM HYDROBROMIDE Inactive REGLAN 10 MG TAB 1 po TID PRN Nausea REGLAN 10 MG TAB 879033 METOCLOPRAMIDE HCL Inactive LAMISIL 250 MG TAB 1 po qd LAMISIL 250 MG TAB 022957 TERBINAFINE HCL Inactive DICLOFENAC SODIUM 75 MG TBEC 1 tablet by mouth twice daily P RN Knee pain DICLOFENAC SODIUM 75 MG TBEC 585287 DICLOFENAC S ODIUM Inactive METOCLOPRAMIDE HCL 10 MG ORAL TABS take one PO tid PRN nausea 20 29/12/14 METOCLOPRAMIDE HCL 10 MG ORAL TABS 923429 METOCLOPRAMID E HCL Inactive TERBINAFINE HCL 250 MG ORAL TABS take one table PO one time abran y TERBINAFINE HCL 250 MG ORAL TABS 900970 TERBINAFINE HCL Inactive BUPROPION HCL ER (SR) 100 MG ORAL [id number] take one t ablet by mouth one time daily for one week then take 1 two times daily BUPROPION HCL ER (SR) 100 MG ORAL [id number] BUPROPION HCL Inacti ve TRAVEL SICKNESS 25 MG ORAL CHEW chew and swallow one t ablet every 6 hours as needed TRAVEL SICKNESS 25 MG ORAL CHEW 564101 MECLIZINE HCL Inactive SUMATRIPTAN SUCCINATE 100 MG ORAL TABS Take one PRN for migrane SUMATRIPTAN SUCCINATE 100 MG ORAL TABS 026364 SUMATRIPT AN SUCCINATE Inactive COMPRO 25 MG RECTAL SUPP insert or apply one supposit ory rectally as directed every 12 hours as needed for nausea COMP RO 25 MG RECTAL SUPP 648227 PROCHLORPERAZINE Inactive ONDANSETRON [address] one tablet on tongue and allow to dissolve every 6 hours as needed for vomitting ON DANSETRON 8 MG ORAL TBDP 773407 ONDANSETRON Inactive HYDROCODONE-ACETAMINOPHEN 5-325 MG TABS 0.5 to 1 tab b y mouth every 6 hours as needed HYDROCODONE-ACETAMINOPHEN 5-325 MG TABS 8 60325 HYDROCODONE-ACETAMINOPHEN Inactive BACTRIM DS 800-160 MG TAB 1 tab by mouth twice daily 2 BACTRIM DS 800-160 MG TAB 505385 TRIMETHOPRIM-SULFAMETHOXAZOLE Inac tive DIFLUCAN 150 MG TAB 1 tablet by mouth if needed, hold until symptoms start DIFLUCAN 150 MG TAB 919308 FLUCONAZOLE Inactive IBUPROFEN 800 MG TABS 1 tab every 8 hours with food 31/03/21 IBUPROFEN 800 MG TABS 181960 IBUPROFEN Inactive HYDROCODONE-ACETAMINOPHEN 5-325 MG TABS 1 tab by mouth every 6 hours as needed HYDROCODONE-ACETAMINOPHEN 5-325 MG TABS 739843 HYDROCODONE-ACETAMINOPHEN Inactive BACTROBAN 2 % CREAM Apply to affected area BID for up to 10 days BACTROBAN 2 % CREAM 725091 MUPIROCIN CALCIUM Inactive MAGNESIUM CITRATE 1.745 GM/30ML ORAL SOLN 150ml po BID PRN C onstipation MAGNESIUM CITRATE 1.745 GM/30ML ORAL SOLN 804238 0 MAGNESIUM CITRATE Inactive CIPRO 500 MG TAB 1 tablet by mouth twice daily CIPRO 500 MG TAB 631052 CIPROFLOXACIN HCL Inactive FLUCONAZOLE 150 MG TABS take 1 tab po qday once 04/06 FLUCONAZOLE 150 MG TABS 337765 FLUCONAZOLE Inactive ZITHROMAX Z-KARTHIK 250 MG TABS 2 today, then 1 daily for 4 days 201 09/18/28 ZITHROMAX Z-KARTHIK 250 MG TABS 4120879 AZITHROMYCIN Inac tive PREDNISONE 20 MG TAB 2 tabs daily for 3 days, 1 t ab daily for 3 days, 1/2 tab daily for 2 days PREDNISONE 20 MG TAB 888279 PREDNISON E Inactive AZITHROMYCIN 250 MG TABS 2 po qd x 1 day, then 1 po qd x 4 days AZITHROMYCIN 250 MG TABS 6439733 AZITHROMYCIN Inactiv e PREDNISONE 20 MG TAB 2 tabs daily for 3 days, 1 t ab daily for 3 days, 1/2 tab daily for 2 days PREDNISONE 20 MG TAB 697129 PREDNISON E Inactive CEFDINIR 300 MG CAPS by mouth twice a day CEFDINIR 300 MG CAPS 280300 CEFDINIR Inactive TRIAMCINOLONE ACETONIDE 0.1 % OINT Apply to affected a reas TID for up to 2 weeks TRIAMCINOLONE ACETONIDE 0.1 % OINT 276961 6 TRIAMCINOLONE ACETONIDE Inactive PREDNISONE 20 MG TAB 2 tabs daily for 3 days, 1 t ab daily for 3 days, 1/2 tab daily for 2 days PREDNISONE 20 MG TAB 635173 PREDNISON E Inactive BACTRIM DS 800-160 MG TABS 1 po BID x 7 days 0 BACTRIM DS 800-160 MG TABS 537282 SULFAMETHOXAZOLE-TRIMETHOPRIM Inactive CIPRO 500 MG TAB 1 tablet by mouth twice daily CIPRO 500 MG TAB 687579 CIPROFLOXACIN HCL Inactive AZITHROMYCIN 250 MG TABS 2 po qd x 1 day, then 1 po qd x 4 days AZITHROMYCIN 250 MG TABS 9042107 AZITHROMYCIN Inactiv e FLAGYL 500 MG TAB 1 tablet by mouth bid FLAGYL 500 MG TAB 765176 METRONIDAZOLE Inactive Immunizations Vaccine Administration Date Value [...] 5.0-8.5 Encounters Code Encounter Date Provider Facility CPT-45786 Level 4 Est. Patient 13:55:46 BUSINESS TRANSFORMATION ANALYST Checo Conklin MD [facility] CPT-93507 Level 4 Est. Patient 17:10:53 CDT Checo Conklin MD [facility] CPT-03830 Level 3 Est. Patient 15:56:22 CDT Checo Conklin MD [facility] CPT-41202 Level 3 Est. Patient 15:29:07 CDT Checo Conklin MD [facility] CPT-40560 Level 3 Est. Patient 14:38:41 CDT Checo Conklin MD [facility] CPT-11718 Level 3 Est. Patient 15:22:03 BUSINESS TRANSFORMATION ANALYST Thomas reynolds DO [facility] CPT-92460 Level 3 Est. Patient 13:34:17 BUSINESS TRANSFORMATION ANALYST Checo Conklin MD [facility] CPT-33602 Level 3 Est. Patient 12:29:32 CDT Dangelo arroyo MD [facility] CPT-55598 Level 3 Est. Patient 16:53:02 CDT Checo Conklin MD [facility] CPT-89341 Level 3 Est. Patient 16:37:13 CDT Checo Conklin MD [facility] CPT-40533 Level 3 Est. Patient 16:16:59 CDT Paul Hamlin MD [facility] CPT-46122 Level 3 Est. Patient 14:20:13 CDT Dangelo arroyo MD [facility] CPT-74675 Level 4 Est. Patient 11:29:33 CDT Checo Conklin MD [facility] CPT-93724 Level 3 Est. Patient 17:08:31 CDT Checo Conklin MD [facility] CPT-51981 Level 3 Est. Patient 16:50:42 BUSINESS TRANSFORMATION ANALYST Checo Conklin MD [facility] CPT-23103 Level 4 Est. Patient 09:26:08 BUSINESS TRANSFORMATION ANALYST Checo Conklin MD [facility] CPT-45358 Level 3 Est. Patient 11:37:10 CDT Checo Conklin MD [facility] CPT-65546 Level 4 Est. Patient 14:07:38 CDT Checo Conklin MD [facility] CPT-66742 Level 3 Est. Patient 09:54:41 CDT Checo Conklin MD [facility] CPT-72171 Level 3 Est. Patient 11:10:54 CDT Paul Hamlin MD [facility] CPT-28666 Level 3 Est. Patient 14:16:56 BUSINESS TRANSFORMATION ANALYST Checo Conklin MD [facility] CPT-82164 Level 3 Est. Patient 11:04:11 BUSINESS TRANSFORMATION ANALYST Checo Conklin MD [facility] CPT-23482 Level 3 Est. Patient 17:09:26 CDT Dangelo arroyo MD [facility] CPT-61263 Level 3 Est. Patient 16:54:37 CDT Checo Conklin MD [facility] Procedures Code Procedure Name Date Entry Date Standard Desc ription CPT-OV Office Visit 11:31:28 CDT CPT-63524 Tubersol 09:39:29 CDT CPT-J2550 Phenergan 25 mg (Promethazine) 13:59:02 BUSINESS TRANSFORMATION ANALYST CPT-J1885 Toradol 60 mg (Ketorolac) 13:59:02 BUSINESS TRANSFORMATION ANALYST 2012
--- OUTSIDE RECORDS SUMMARY | 2019-09-29 02:04 | XMS REPORT | Clinical Summary ---
Author Author Admin, Bethany Ayala [facility] Address Unknown Phone Unavailable Allergies, Adverse Reactions, [...] joint involving lower leg Vertigo 780.4 Resolved Chceo Conklin MD Dizziness and giddiness Constipation 564.00 [...] hours as needed for p ain IBUPROFEN 48116611345 Active Dangelo Rangel MD Acti ve PAROXETINE HCL 40 MG ORAL TABLET 1 po qd PAR OXETINE HCL 21777510547 Active Checo Conklin MD Active MIRALAX ORAL POWDER 8.5 to 17g po qd PRN Constipation POLYETHYLENE GLYCOL 3350 60724927347 No Longer Active Checo Conklin MD Active PROTONIX 40 MG ORAL TABLET DELAYED RELEASE 1 pill by [facility] daily, for acid reflux PANTOPRAZOLE SODIUM 33650753784 No Longer Activ e Corry Méndez LPN Active FLAGYL 500 MG ORAL TABLET 1 tablet by mouth bid 08/29 METRONIDAZOLE 30428193411 No Longer Active Corry Méndez LPN Active CLARITHROMYCIN 500 MG ORAL TABLET 1 tab po BID x 14 days CLARITHROMYCIN 43745091401 No Longer Active Corry Méndez LPN Active AMOXICILLIN 500 MG ORAL CAPSULE 2 po BID x 14 days for H. Pylori AMOXICILLIN 75090857179 No Longer Active Corry Méndez LPN Active FLUTICASONE PROPIONATE 50 MCG/ACT NASAL SUSPENSION 2 s prays/nostril qd PRN Congestion/Allergies FLUTICASONE PROPIONATE 1758217227 9 No Longer Active Checo Conklin MD Active AMOXICILLIN 500 MG ORAL CAPSULE 2 po BID x 10 days 201 01/15/27 AMOXICILLIN 69292545872 No Longer Active Checo Conklin MD Activ e CLARITIN 10 MG ORAL TABLET 1 tablet by mouth daily as needed for allergies LORATADINE 69725587514 No Longer Active Checo Ortiz MD Active BACTRIM DS 800-160 MG ORAL TABLET 1 tab by mouth twice daily 201 12/19/26 TRIMETHOPRIM-SULFAMETHOXAZOLE 56619749781 No Longer Active Ragini Carrillo MD Active DIFLUCAN 150 MG ORAL TABLET 1 tablet by mouth qod 2015 FLUCONAZOLE 06223055820 No Longer Active Efren Medel APRN Act mike AZITHROMYCIN 250 MG ORAL TABLET 2 po qd x 1 day, then 1 po q d x 4 days AZITHROMYCIN 18743414381 No Longer Active Efren flores [employer]NAGER Active FLAGYL 500 MG ORAL TABLET 1 tablet by mouth bid 04/13 METRONIDAZOLE 70134756112 No Longer Active Checo Conklin MD Acti ve FOCALIN XR 10 MG ORAL CAPSULE EXTENDED RELEASE 24 HOUR 1 po q a.m. DEXMETHYLPHENIDATE HCL 05217439580 Active Checo Conklin MD Active MAGNESIUM CITRATE 1.745 GM/30ML ORAL SOLUTION 150ml po BID P RN Constipation MAGNESIUM CITRATE 71087335292 No Longer Active Checo Conklin MD Active BACTROBAN 2 % EXTERNAL CREAM Apply to affected area BID for up to 10 days MUPIROCIN CALCIUM 23710122952 No Longer Active Checo Conlkin MD Active HYDROCODONE-ACETAMINOPHEN 5-325 MG ORAL TABLET 1 tab b y mouth every 6 hours as needed HYDROCODONE-ACETAMINOPHEN 28326561512 No Longer Active Checo Conklin MD Active IBUPROFEN 800 MG ORAL TABLET 1 tab every 8 hours with food 03/20 IBUPROFEN 04750208046 No Longer Active Checo Conklin MD Active DIFLUCAN 150 MG ORAL TABLET 1 tablet by mouth if neede d, hold until symptoms start FLUCONAZOLE 67857420916 No Longer Active Checo Conklin MD Active BACTRIM DS 800-160 MG ORAL TABLET 1 tab by mouth twice daily 201 11/23/03 TRIMETHOPRIM-SULFAMETHOXAZOLE 21768777591 No Longer Active K claudiaberly Whittley, 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 Active HYDROCODONE-ACETAMINOPHEN 5-325 MG ORAL TABLET 0.5 to 1 tab by mouth every 6 hours as needed HYDROCODONE-ACETAMINOPHEN 91844060877 No Longer Active Checo Conklin MD Active ONDANSETRON 8 MG ORAL TABLET DISINTEGRATING place one tablet on tongue and allow to dissolve every 6 hours as needed for vomitting ONDANSETRON 27387335701 No Longer Active Checo Conklin MD Activ e COMPRO 25 MG RECTAL SUPPOSITORY insert or apply one garza ppository rectally as directed every 12 hours as needed for nausea PROCHLORPERAZINE 01773826542 No Longer Active Checo Conklin MD A ctive SUMATRIPTAN SUCCINATE 100 MG ORAL TABLET Take one PRN for migran e SUMATRIPTAN SUCCINATE 03653227823 No Longer Active Checo Conklin MD Active TRAVEL SICKNESS 25 MG ORAL TABLET CHEWABLE chew and sw allow one tablet every 6 hours as needed MECLIZINE HCL 48665279205 No Longer A ctive Checo Conklin MD Active BUPROPION HCL ER (SR) 100 MG ORAL TABLET EXTENDED RELE ASE 12 HOUR take one tablet by mouth one time daily for one week then take 1 two times daily BUPROPION HCL 92214027618 No Longer Active Checo gallagher MD Active TERBINAFINE HCL 250 MG ORAL TABLET take one table PO one time da moises TERBINAFINE HCL 44522072364 No Longer Active Checo Conklin MD Active METOCLOPRAMIDE HCL 10 MG ORAL TABLET take one PO tid PRN nausea METOCLOPRAMIDE HCL 31688695498 No Longer Active Checo Conklin MD Active DICLOFENAC SODIUM 75 MG ORAL TABLET DELAYED RELEASE 1 tablet by mouth twice daily PRN Knee pain DICLOFENAC SODIUM 82772792465 No Longer Active Checo Conklin MD Active LAMISIL 250 MG ORAL TABLET 1 po qd TERBINAFI NE HCL 33954413677 No Longer Active Checo Conklin MD Active REGLAN 10 MG ORAL TABLET 1 po TID PRN Nausea 3 METOCLOPRAMIDE HCL 12487218940 No Longer Active Checo Conklin MD Active CELEXA 20 MG ORAL TABLET 1 tablet by mouth daily 09/26 CITALOPRAM HYDROBROMIDE 17866953348 No Longer Active Checo Conklin MD Active AZITHROMYCIN 250 MG ORAL TABLET 2 po qd x 1 day, then 1 po q d x 4 days AZITHROMYCIN 92523458451 No Longer Active Checo Ortiz MD Active HYDROCODONE-ACETAMINOPHEN 5-325 MG ORAL TABLET 1 po q 6hr PRN Pa in HYDROCODONE-ACETAMINOPHEN 75837051657 No Longer Active Lenora Conklin MD Active PHENAZOPYRIDINE HCL 200 MG ORAL TABLET take 1 tab po TID for bladder pain PHENAZOPYRIDINE HCL 83074361941 No Longer Active Joe Conklin MD Active CIPRO 500 MG ORAL TABLET 1 tablet by mouth twice daily CIPROFLOXACIN HCL 39008087227 No Longer Active Dangelo Rangel MD Active HYDROCODONE-ACETAMINOPHEN 5-325 MG ORAL TABLET 1/2 to 1 po q 4 hours prn cough HYDROCODONE-ACETAMINOPHEN 01347698709 No Longer Activ e Dangelo Rangel MD Active BACTRIM DS 800-160 MG ORAL TABLET 1 po BID x 7 days 29/04/10 SULFAMETHOXAZOLE-TRIMETHOPRIM 49654142867 No Longer Active Checo Conklin MD Active PREDNISONE 20 MG ORAL TABLET 2 tabs daily for 3 days, 1 tab daily for 3 days, 1/2 tab daily for 2 days PREDNISONE 46091533663 No Longer Active Checo Conklin MD Active TRIAMCINOLONE ACETONIDE 0.1 % EXTERNAL OINTMENT Apply to affected areas TID for up to 2 weeks TRIAMCINOLONE ACETONIDE 54195320431 No Longer Active Checo Conklin MD Active CEFDINIR 300 MG ORAL CAPSULE by mouth twice a day 2013 CEFDINIR 32540148029 No Longer Active Dangelo Rangel MD Acti ve BUPROPION HCL ER (SMOKING DET) 150 MG ORAL TABLET EXTE NDED RELEASE 12 HOUR 1 a day for 1 week then 1 twice a day BUPROPION HCL (SMOKING DETER) 77140200413 No Longer Active Checo Conklin MD Active SIMVASTATIN 20 MG ORAL TABLET 1 po qd SIMVASTAT IN 68602223569 Active Checo Conklin MD Active CHANTIX STARTING MONTH KARTHIK 0.5 MG X 11 & 1 MG X 42 ORA L TABLET 0.5mg daily for 3 days, then 0.5mg BID for 4 days, then 1mg BID VARENICLINE TARTRATE 38143764076 No Longer Active Checo Conklin MD Activ e XANAX 0.5 MG ORAL TABLET 1 po BID PRN anxiety A LPRAZOLAM 30313695614 Active Checo Conklin MD Active CONCERTA 18 MG ORAL TABLET EXTENDED RELEASE 1 po q a.m. METHYLPHENIDATE HCL 12104900122 No Longer Active Checo Conklin MD Active AMBIEN 5 MG ORAL TABLET 1 po qHS PRN Insomnia Z OLPIDEM TARTRATE 07831495496 Active Checo Conklin MD Active TRAZODONE HCL 100 MG ORAL TABLET 0.5 to 1 po qHS PRN Insomnia 20 30/07/08 TRAZODONE HCL 78815786868 No Longer Active Checo Conklin MD Active FIORICET 325-50-40 MG TAB 1 tablet by mouth four times daily as needed [id number] 27347068707 No Longer Active Checo Cnoklin MD Active PHENERGAN CREAM* 25mg applied to wrist q6hr PRN Nausea PHENERGAN CREAM* No Longer Active Checo Gonzales ctive FLONASE 50 MCG/ACT NASAL SUSPENSION 1 spray each nostril am and hs FLUTICASONE PROPIONATE 62233531350 No Longer Active Checo Conklin MD Active ANTIPYRINE-BENZOCAINE 5.4-1.4 % OTIC SOLUTION 1-2 drops in affec yohannes ear BENZOCAINE-ANTIPYRINE 26128284309 No Longer Active Checo Conklin MD Active CEFDINIR 300 MG ORAL CAPSULE 1 po bid CEFDINIR 01540275233 No Longer Active Checo Conklin MD Active PREDNISONE 20 MG ORAL TABLET 2 tabs daily for 3 days, 1 tab daily for 3 days, 1/2 tab daily for 2 days PREDNISONE 81585984079 No Longer Active Checo Conklin MD Active AZITHROMYCIN 250 MG ORAL TABLET 2 po qd x 1 day, then 1 po q d x 4 days AZITHROMYCIN 95676739589 No Longer Active Checo Ortiz MD Active PREDNISONE 20 MG ORAL TABLET 2 tabs daily for 3 days, 1 tab daily for 3 days, 1/2 tab daily for 2 days PREDNISONE 03440539254 No Longer Active Checo Conklin MD Active ZITHROMAX Z-KARTHIK 250 MG ORAL TABLET 2 today, then 1 daily for 4 d ays AZITHROMYCIN 86875425273 No Longer Active Paul Hamlin MD Active FOCALIN XR 10 MG ORAL CAPSULE EXTENDED RELEASE 24 HOUR 1 po q a. m. DEXMETHYLPHENIDATE HCL 59776184789 No Longer Active Paul Hamlin MD Active PERCOCET 10-325 MG ORAL TABLET 1 tablet every 6 hours as needed for pain OXYCODONE-ACETAMINOPHEN 28596548469 No Longer Active Paul Hamlin MD Active LORTAB 5-500 MG ORAL TABLET 1/2 to 1 tablet by mouth e very 4 hours as needed for pain HYDROCODONE-ACETAMINOPHEN 98136359819 No Longer Active Checo Conklin MD Active FOCALIN XR 15 MG ORAL CAPSULE EXTENDED RELEASE 24 HOUR 1 po q a. m. DEXMETHYLPHENIDATE HCL 54243021085 No Longer Active Checo Conklin MD Active ZOFRAN ODT 4 MG ORAL TABLET DISINTEGRATING 1 po q6hr PRN Nausea ONDANSETRON 93602480389 No Longer Active Checo Conklin MD Active PERCOCET 5-325 MG ORAL TABLET 1 tablet by mouth every 6 hour s as needed OXYCODONE-ACETAMINOPHEN 56149640140 No Longer Active Checo Conklin MD Active PYRIDIUM 200 MG ORAL TABLET take 1 tab po TID prn urinary pain. PHENAZOPYRIDINE HCL 40570364190 No Longer Active Checo Joshua Active FLUCONAZOLE 150 MG ORAL TABLET take 1 tab po qday once FLUCONAZOLE 48001805515 No Longer Active Dangelo Rangel MD Acti ve CIPRO 500 MG ORAL TABLET 1 tablet by mouth twice daily CIPROFLOXACIN HCL 11358421478 No Longer Active Dangelo Rangel MD Active PYRIDIUM 200 MG ORAL TABLET take 1 tab po TID prn urinary pain. PYRIDIUM 200 MG ORAL TABLET 9635077 PHENAZOPYRIDINE HCL Inactive PERCOCET 5-325 MG ORAL TABLET 1 tablet by mouth every 6 hour s as needed PERCOCET 5-325 MG ORAL TABLET 9438702 OXYCODONE-ACETAMINOPHEN Inactive ZOFRAN ODT 4 MG ORAL TABLET DISINTEGRATING 1 po q6hr PRN Nausea ZOFRAN ODT 4 MG ORAL TABLET DISINTEGRATING 228585 ONDAN SETRON Inactive FOCALIN XR 15 MG [...] for pain PERCOCET 10-325 MG ORAL TABLET 5588029 OXYCODONE-ACETAMI NOPHEN Inactive FOCALIN XR 10 MG ORAL CAPSULE EXTENDED RELEASE 24 HOUR 1 po q a. m. FOCALIN XR 10 MG ORAL CAPSULE EXTENDED RELEASE 24 HOUR DEXMETHYLPHENIDATE HCL Inactive CEFDINIR 300 MG ORAL CAPSULE 1 po bid CEFDINI R 300 MG ORAL CAPSULE 261976 CEFDINIR Inactive ANTIPYRINE-BENZOCAINE 5.4-1.4 % OTIC SOLUTION 1-2 drops in affec yohannes ear ANTIPYRINE-BENZOCAINE 5.4-1.4 % OTIC SOLUTION BENZOCAINE-ANTIPYRINE Inactive FLONASE 50 MCG/ACT NASAL SUSPENSION 1 spray each nostril am and hs FLONASE 50 MCG/ACT NASAL SUSPENSION 5177904 FLUTICASONE PROPIONATE I nactive PHENERGAN CREAM* 25mg applied to wrist q6hr PRN Nausea PHENERGAN CREAM* Inactive FIORICET 325-50-40 MG TAB 1 tablet by mouth four times daily as needed FIORICET 325-50-40 MG TAB ACETAMINOPHEN-C AFF-BUTALBITAL Inactive TRAZODONE HCL 100 MG ORAL TABLET 0.5 to 1 po qHS PRN Insomnia 20 30/07/08 TRAZODONE HCL 100 MG ORAL TABLET 147609 TRAZODONE HCL Inactive CONCERTA 18 MG ORAL [...] cough HYDROCODONE-ACETAMINOPHEN 5-325 MG ORAL TABLET 8 22958 HYDROCODONE-ACETAMINOPHEN Inactive PHENAZOPYRIDINE HCL 200 MG ORAL TABLET take 1 tab po TID for bladder pain PHENAZOPYRIDINE HCL 200 MG ORAL TABLET 2226537 PHENAZOPYRIDINE HCL Inactive HYDROCODONE-ACETAMINOPHEN 5-325 MG ORAL TABLET 1 po q 6hr PRN Pa in HYDROCODONE-ACETAMINOPHEN 5-325 MG ORAL TABLET 170987 HYDROCODONE-ACETAMINOPHEN Inactive CELEXA 20 MG ORAL TABLET 1 tablet by mouth daily 09/26 CELEXA 20 MG ORAL TABLET 355712 CITALOPRAM HYDROBROMIDE Inactive REGLAN 10 MG ORAL TABLET 1 po TID PRN Nausea 3 REGLAN 10 MG ORAL TABLET 136882 METOCLOPRAMIDE HCL Inactive LAMISIL 250 MG ORAL TABLET 1 po qd L AMISIL 250 MG ORAL TABLET 837968 TERBINAFINE HCL Inactive DICLOFENAC SODIUM 75 MG ORAL TABLET DELAYED RELEASE 1 tablet by mouth twice daily PRN Knee pain DICLOFENAC SODIUM 75 MG ORAL TABLET DELAYED RELEASE 477596 DICLOFENAC SODIUM Inactive METOCLOPRAMIDE HCL 10 MG ORAL TABLET take one PO tid PRN nausea METOCLOPRAMIDE HCL 10 MG ORAL TABLET 385103 METOCLOPRAM ZACH HCL Inactive TERBINAFINE HCL 250 MG ORAL TABLET take one table PO one time da moises TERBINAFINE HCL 250 MG ORAL TABLET 950733 TERBINAFINE H CL Inactive BUPROPION HCL ER [...] SICKNESS 25 M G ORAL TABLET CHEWABLE 505474 MECLIZINE HCL Inactive SUMATRIPTAN SUCCINATE 100 MG ORAL TABLET Take one PRN for migran e SUMATRIPTAN SUCCINATE 100 MG ORAL TABLET 195956 SUMATRIPTAN SUCCINATE Inactive COMPRO 25 MG RECTAL SUPPOSITORY insert or apply one garza ppository rectally as directed every 12 hours as needed for nausea COMPRO 25 MG RECTAL SUPPOSITORY 546800 PROCHLORPERAZINE Inactive ONDANSETRON 8 MG ORAL TABLET DISINTEGRATING place one tablet on tongue and allow to dissolve every 6 hours as needed for vomitting ONDANSETRON 8 MG ORAL TABLET DISINTEGRATING 555885 ONDANSETRON Inactive HYDROCODONE-ACETAMINOPHEN 5-325 MG ORAL TABLET 0.5 to 1 tab by mouth every 6 hours as needed HYDROCODONE-ACETAMIN OPHEN 5-325 MG ORAL TABLET 825024 HYDROCODONE-ACETAMINOPHEN Inactive BACTRIM DS 800-160 MG ORAL TABLET 1 tab by mouth twice daily 201 11/23/03 BACTRIM DS 800-160 MG ORAL TABLET 19820918 TRIMETHOPRIM-SULFAMETHOXAZOLE Inactive DIFLUCAN 150 MG ORAL TABLET 1 tablet by mouth if neede d, hold until symptoms start DIFLUCAN 150 MG ORAL TABLET 834479 FLUCONAZ OLE Inactive IBUPROFEN 800 MG ORAL TABLET 1 tab every 8 hours with food 03/20 IBUPROFEN 800 MG ORAL TABLET 731902 IBUPROFEN Basile ctive HYDROCODONE-ACETAMINOPHEN 5-325 MG ORAL TABLET 1 tab b y mouth every 6 hours as needed HYDROCODONE-ACETAMINOPHEN 5-325 MG ORAL TABLET 242500 HYDROCODONE-ACETAMINOPHEN Inactive BACTROBAN 2 % EXTERNAL CREAM Apply to affected area BID for up to 10 days BACTROBAN 2 % EXTERNAL CREAM 542868 MUPIROCIN CA LCIUM Inactive MAGNESIUM CITRATE 1.745 GM/30ML ORAL SOLUTION 150ml po BID P RN Constipation MAGNESIUM CITRATE 1.745 GM/30ML ORAL SOLUTION 10 27267 MAGNESIUM CITRATE Inactive DIFLUCAN 150 MG ORAL TABLET 1 tablet by mouth qod 2015 DIFLUCAN 150 MG ORAL TABLET 087617 FLUCONAZOLE Inactive BACTRIM DS 800-160 MG ORAL TABLET 1 tab by mouth twice daily 201 12/19/26 BACTRIM DS 800-160 MG ORAL TABLET 609603 TRIMETHOPRIM-SULFAMETHOXAZOLE Inactive CLARITIN 10 MG ORAL TABLET 1 tablet by mouth daily as needed for allergies CLARITIN 10 MG ORAL TABLET 428112 LORATADINE I nactive FLUTICASONE PROPIONATE 50 MCG/ACT NASAL SUSPENSION 2 s prays/nostril qd PRN Congestion/Allergies FLUTICASONE PROPION ATE 50 MCG/ACT NASAL SUSPENSION 6337590 FLUTICASONE PROPIONATE Inactive MIRALAX ORAL POWDER 8.5 to 17g po qd PRN Constipation MIRALAX ORAL POWDER 717470 POLYETHYLENE GLYCOL 3350 Inactive CIPRO 500 MG ORAL TABLET 1 tablet by mouth twice daily CIPRO 500 MG ORAL TABLET 825360 CIPROFLOXACIN HCL Inactive FLUCONAZOLE 150 MG ORAL TABLET take 1 tab po qday once FLUCONAZOLE 150 MG ORAL TABLET 129580 FLUCONAZOLE Inactive ZITHROMAX Z-KARTHIK 250 MG ORAL TABLET 2 today, then 1 daily for 4 d ays ZITHROMAX Z-KARTHIK 250 MG ORAL TABLET 786316 AZITHROMYCIN Inactive PREDNISONE 20 MG ORAL TABLET 2 tabs daily for 3 days, 1 tab daily for 3 days, 1/2 tab daily for 2 days PREDNISONE 20 MG ORAL T ABLET 618783 PREDNISONE Inactive AZITHROMYCIN 250 MG ORAL TABLET 2 po qd x 1 day, then 1 po q d x 4 days AZITHROMYCIN 250 MG ORAL TABLET 947525 AZITHROMY SPARKLE Inactive PREDNISONE 20 MG ORAL TABLET 2 tabs daily for 3 days, 1 tab daily for 3 days, 1/2 tab daily for 2 days PREDNISONE 20 MG ORAL TABLET 152126 PREDNISONE Inactive CEFDINIR 300 MG ORAL CAPSULE by mouth twice a day 2013 CEFDINIR 300 MG ORAL CAPSULE 766727 CEFDINIR Inactive TRIAMCINOLONE ACETONIDE 0.1 % EXTERNAL OINTMENT Apply to affected areas TID for up to 2 weeks TRIAMCINOLONE ACETON ZACH 0.1 % EXTERNAL OINTMENT 7500712 TRIAMCINOLONE ACETONIDE Inactive PREDNISONE 20 MG ORAL TABLET 2 tabs daily for 3 days, 1 tab daily for 3 days, 1/2 tab daily for 2 days PREDNISONE 20 MG ORAL T ABLET 273344 PREDNISONE Inactive BACTRIM DS 800-160 MG ORAL TABLET 1 po BID x 7 days 29/04/10 BACTRIM DS 800-160 MG ORAL TABLET 162253 SULFAMETHOXAZOLE-TRIMETHOP RIM Inactive CIPRO 500 MG ORAL TABLET 1 tablet by mouth twice daily CIPRO 500 MG ORAL TABLET 996326 CIPROFLOXACIN HCL Inactive AZITHROMYCIN 250 MG ORAL TABLET 2 po qd x 1 day, then 1 po q d x 4 days AZITHROMYCIN 250 MG ORAL TABLET 066448 AZITHROMY SPARKLE Inactive FLAGYL 500 MG ORAL TABLET 1 tablet by mouth bid 04/13 FLAGYL 500 MG ORAL TABLET 655229 METRONIDAZOLE Inactive AZITHROMYCIN 250 MG ORAL TABLET 2 po qd x 1 day, then 1 po q d x 4 days AZITHROMYCIN 250 MG ORAL TABLET 370805 AZITHROMY SPARKLE Inactive AMOXICILLIN 500 MG ORAL CAPSULE 2 po BID x 10 days 201 01/15/27 AMOXICILLIN 500 MG ORAL CAPSULE 872886 AMOXICILLIN Inactive AMOXICILLIN 500 MG ORAL CAPSULE 2 po BID x 14 days for H. Pylori AMOXICILLIN 500 MG ORAL CAPSULE 740742 AMOXICILLIN Inactive CLARITHROMYCIN 500 MG ORAL TABLET 1 tab po BID x 14 days CLARITHROMYCIN 500 MG ORAL TABLET 037038 CLARITHROMYCIN Inacti ve FLAGYL 500 MG ORAL TABLET 1 tablet by mouth bid 08/29 FLAGYL 500 MG ORAL TABLET 853082 METRONIDAZOLE Inactive PROTONIX 40 MG ORAL TABLET DELAYED RELEASE 1 pill by m outh daily, for acid reflux PROTONIX 40 MG ORAL TABLET DELAYED RELEAS E 074541 PANTOPRAZOLE SODIUM Inactive Immunizations Vaccine Administration Date [...] ... - Chemistry sodium, serum 139 mmol/L 065-540 7522/11/28 carbon dioxide, venous blood 26.0 mmol/L 21.0-32 [...] 5.0-8.5 Encounters Code Encounter Date Provider Facility CPT-52772 Level 4 Est. Patient 11:08:43 CDT Checo Conklin MD [facility]-[address] [id number] Vst-Est Level III 09:37:41 CDT Dangelo Rangel MD [facility] CPT-98726 Level 4 Est. Patient 08:57:51 BANK ANALYST Checo Conklin MD [facility] CPT-55778 Level 3 Est. Patient 11:24:55 BANK ANALYST Efren almendarez [facility] CPT-40459 Level 3 Est. Patient 13:05:44 CDT Paul Hamlin MD [facility] CPT-76364 Level 3 Est. Patient 11:29:55 CDT Checo Conklin MD [facility] CPT-15575 Level 4 Est. Patient 11:08:12 BANK ANALYST Checo Conklin MD [facility] CPT-77668 Level 4 Est. Patient 16:06:48 BANK ANALYST Checo Conklin MD [facility] CPT-16255 Level 3 Est. Patient 09:11:49 CDT Efren almendarez [facility] CPT-88009 Level 2 Est. Patient 19:53:27 CDT Tanner hill MD [facility] CPT-66632 Level 3 Est. Patient 09:15:34 CDT Efren almendarez [facility] CPT-64593 Level 3 Est. Patient 11:28:51 BANK ANALYST Efren almendarez [facility] CPT-57494 Level 4 Est. Patient 13:55:46 BANK ANALYST Checo Conklin MD [facility] CPT-57359 Level 4 Est. Patient 17:10:53 CDT Checo Conklin MD [facility] CPT-48766 Level 3 Est. Patient 15:56:22 CDT Checo Conklin MD [facility] CPT-97182 Level 3 Est. Patient 15:29:07 CDT Checo Conklin MD [facility] CPT-48421 Level 3 Est. Patient 14:38:41 CDT Checo Conklin MD [facility] CPT-32668 Level 3 Est. Patient 15:22:03 BANK ANALYST Thomas reynolds DO [facility] CPT-31483 Level 3 Est. Patient 13:34:17 BANK ANALYST Checo Conklin MD [facility] CPT-53349 Level 3 Est. Patient 12:29:32 CDT Dangelo arroyo MD [facility] CPT-32476 Level 3 Est. Patient 16:53:02 CDT Checo Conklin MD [facility] CPT-41777 Level 3 Est. Patient 16:37:13 CDT Checo Conklin MD [facility] CPT-83916 Level 3 Est. Patient 16:16:59 CDT Paul Hamlin MD [facility] CPT-39438 Level 3 Est. Patient 14:20:13 CDT Dangelo arroyo MD [facility] CPT-73630 Level 4 Est. Patient 11:29:33 CDT Checo Conklin MD [facility] CPT-59108 Level 3 Est. Patient 17:08:31 CDT Checo Conklin MD [facility] CPT-50726 Level 3 Est. Patient 16:50:42 BANK ANALYST Checo Conklin MD [facility] CPT-38491 Level 4 Est. Patient 09:26:08 BANK ANALYST Checo Conklin MD [facility] CPT-76269 Level 3 Est. Patient 11:37:10 CDT Checo Conklin MD [facility] CPT-70910 Level 4 Est. Patient 14:07:38 CDT Checo Conklin MD [facility] CPT-81279 Level 3 Est. Patient 09:54:41 CDT Checo Conklin MD [facility] CPT-90659 Level 3 Est. Patient 11:10:54 CDT Paul Hamlin MD [facility] CPT-14454 Level 3 Est. Patient 14:16:56 BANK ANALYST Checo Conklin MD [facility] CPT-03353 Level 3 Est. Patient 11:04:11 BANK ANALYST Checo Conklin MD [facility] CPT-18713 Level 3 Est. Patient 17:09:26 CDT Dangelo arroyo MD [facility] CPT-61532 Level 3 Est. Patient 16:54:37 CDT Checo Conklin MD [facility] Procedures Code Procedure Name Date Entry Date Standard Desc ription CPT-95349 Wrist, right, comp 3V - XRAY USE ONLY 09:24:31 CDT CPT-81067 Abd compl w upright - XRAY USE ONLY 1 1:36:54 BANK ANALYST CPT-78270 UA w micro - LAB USE ONLY 17:06:46 CDT 2015 CPT-91192 BHCG Qual - LAB USE ONLY 17:06:46 CDT 05/06 CPT-83548 CMP - LAB USE ONLY 17:06:46 CDT CPT-36371 CBC with Diff - LAB USE ONLY 17:06:45 CDT 2 CPT-29551 Venipuncture Draw Fee 17:06:45 CDT CPT-LR Lesion Removal 19:53:27 CDT CPT-OV Office Visit 11:31:28 CDT CPT-28654 Tubersol 09:39:29 CDT CPT-J2550 Phenergan 25 mg (Promethazine) 13:59:02 BANK ANALYST CPT-J1885 Toradol 60 mg (Ketorolac) 13:59:02 BANK ANALYST 2012
--- OUTSIDE RECORDS SUMMARY | 2019-09-29 02:04 | XMS REPORT | Clinical Summary ---
Author Author Admin, Bethany Ayala [employer] Address Unknown Phone Unavailable Allergies, Adverse Reactions, [...] MD Hypoglycemia, unspecified Insomnia 780.52 Resolved Checo Conklni MD Insomnia, unspecified Hyperlipidemia 272.4 Active Checo [...] MD Acute pharyngitis Cough 786.2 Resolved Checo Conlkin MD Cough Pedal edema 782.3 Resolved Checo [...] Conklin MD Carbuncle/furuncle NOS ICD-680.9 Inactive Hilaria Conlkin MD BRONCHITIS, ACUTE ICD-466.0 Inactive Checo gallagher [...] TABS 1.5 po qd PAROX ETINE HCL 85170816473 Active Checo Conklin MD Active FLUTICASONE PROPIONATE 50 MCG/ACT NASAL SUSP 2 sprays/ nostril qd PRN Congestion/Allergies FLUTICASONE PROPIONATE 4900441073 5 No Longer Active Checo Conklin MD Active AMOXICILLIN 500 MG ORAL CAPS 2 po BID x 10 days 09/12 AMOXICILLIN 33917172967 No Longer Active Checo Conklin MD Activ e MIRALAX ORAL POWD 8.5 to 17g po qd PRN Constipation POLYETHYLENE GLYCOL 3350 68544702491 Active Checo Conklin MD Active CLARITIN 10 MG TAB 1 tablet by mouth daily as needed for allergi es LORATADINE 70849851179 No Longer Active Checo Conklin MD Active BACTRIM DS 800-160 MG TAB 1 tab by mouth twice daily 2 TRIMETHOPRIM-SULFAMETHOXAZOLE 80152744779 No Longer Active Tanner Carrillo MD Active DIFLUCAN 150 MG TAB 1 tablet by mouth qod FLUCO NAZOLE 49616237067 No Longer Active Jillina Frazell DETASSELER Active AZITHROMYCIN 250 MG TABS 2 po qd x 1 day, then 1 po qd x 4 days AZITHROMYCIN 94169499994 No Longer Active Efren Medel APRN Active FLAGYL 500 MG TAB 1 tablet by mouth bid METRONI DAZOLE 28633603632 No Longer Active Checo Conklin MD Active FOCALIN XR 10 MG ORAL [id number] 1 po q a.m. DEX METHYLPHENIDATE HCL 58630981329 Active Checo Conklin MD Active MAGNESIUM CITRATE 1.745 GM/30ML ORAL SOLN 150ml po BID PRN C onstipation MAGNESIUM CITRATE 19311751927 No Longer Active Checo Conklin MD Active BACTROBAN 2 % CREAM Apply to affected area BID for up to 10 days MUPIROCIN CALCIUM 52192111870 No Longer Active Checo Conklin MD Active HYDROCODONE-ACETAMINOPHEN 5-325 MG TABS 1 tab by mouth every 6 hours as needed HYDROCODONE-ACETAMINOPHEN 49240626405 No Longer Activ e Checo Conklin MD Active IBUPROFEN 800 MG TABS 1 tab every 8 hours with food 20 31/03/21 IBUPROFEN 39928465325 No Longer Active Checo Conklin MD Activ e DIFLUCAN 150 MG TAB 1 tablet by mouth if needed, hold until symptoms start FLUCONAZOLE 68687755656 No Longer Active Checo Ortiz MD Active BACTRIM DS 800-160 MG TAB 1 tab by mouth twice daily 2 TRIMETHOPRIM-SULFAMETHOXAZOLE 76018540280 No Longer Active Corry leong LPN Active HYDROCODONE-ACETAMINOPHEN 5-325 MG TABS 0.5 to 1 tab b y mouth every 6 hours as needed HYDROCODONE-ACETAMINOPHEN 58310116033 No Longer Active Checo Conklin MD Active ONDANSETRON [address] one tablet on tongue and allow to dissolve every 6 hours as needed for vomitting ONDANSETRO N 61997932956 No Longer Active Checo Conklin MD Active COMPRO 25 MG RECTAL SUPP insert or apply one supposit ory rectally as directed every 12 hours as needed for nausea PROCHLORPERA ZINE 78262313029 No Longer Active Checo Conklin MD Active SUMATRIPTAN SUCCINATE 100 MG ORAL TABS Take one PRN for migrane SUMATRIPTAN SUCCINATE 86814987316 No Longer Active Checo Conklin MD Active TRAVEL SICKNESS 25 MG ORAL CHEW chew and swallow one t ablet every 6 hours as needed MECLIZINE HCL 82676523334 No Longer Active Joe Conklin MD Active BUPROPION HCL ER (SR) 100 MG ORAL [id number] take one t ablet by mouth one time daily for one week then take 1 two times daily BUPROPION HCL 32025329871 No Longer Active Checo Conklin MD Activ e TERBINAFINE HCL 250 MG ORAL TABS take one table PO one time abran y TERBINAFINE HCL 12293607284 No Longer Active Checo Conklin MD Active METOCLOPRAMIDE HCL 10 MG ORAL TABS take one PO tid PRN nausea 20 29/12/14 METOCLOPRAMIDE HCL 56092239451 No Longer Active Checo Conklin MD Active DICLOFENAC SODIUM 75 MG TBEC 1 tablet by mouth twice daily P RN Knee pain DICLOFENAC SODIUM 67159676824 No Longer Active Checo Conklin MD Active LAMISIL 250 MG TAB 1 po qd TERBINAFINE HCL 548 07075937 No Longer Active Checo Conklin MD Active REGLAN 10 MG TAB 1 po TID PRN Nausea METOCLOPRA MIDE HCL 56357598070 No Longer Active Checo Conklin MD Active CELEXA 20 MG TABS 1 tablet by mouth daily CITALOPRAM HYDROBROMIDE 12129713998 No Longer Active Checo Conklin MD Activ e AZITHROMYCIN 250 MG TABS 2 po qd x 1 day, then 1 po qd x 4 days AZITHROMYCIN 43056208213 No Longer Active Checo Conklin MD Active HYDROCODONE-ACETAMINOPHEN 5-325 MG TABS 1 po q 6hr PRN Pain 2013 HYDROCODONE-ACETAMINOPHEN 60171048031 No Longer Active Lenora Conklin MD Active PHENAZOPYRIDINE HCL 200 MG TABS take 1 tab po TID for bladder pa in PHENAZOPYRIDINE HCL 79187070185 No Longer Active Checo Joshua Active CIPRO 500 MG TAB 1 tablet by mouth twice daily CIPROFLOXACIN HCL 69544686568 No Longer Active Dangelo Rangel MD Active HYDROCODONE-ACETAMINOPHEN 5-325 MG TABS 1/2 to 1 po q 4 hour s prn cough HYDROCODONE-ACETAMINOPHEN 02074423202 No Longer Activ e Dangelo Rangel MD Active BACTRIM DS 800-160 MG TABS 1 po BID x 7 days 0 SULFAMETHOXAZOLE-TRIMETHOPRIM 05080235163 No Longer Active Checo Conklin MD Active PREDNISONE 20 MG TAB 2 tabs daily for 3 days, 1 t ab daily for 3 days, 1/2 tab daily for 2 days PREDNISONE 46418968521 No Longer Active Checo Conklin MD Active TRIAMCINOLONE ACETONIDE 0.1 % OINT Apply to affected a reas TID for up to 2 weeks TRIAMCINOLONE ACETONIDE 50221192493 No Longer A ctive Checo Conklin MD Active CEFDINIR 300 MG CAPS by mouth twice a day CEFDI JAZZY 29103078550 No Longer Active Dangelo Rangel MD Active BUPROPION HCL (SMOKING DETER) 150 MG [id number] 1 a day for 1 week then 1 twice a day BUPROPION HCL (SMOKING DETER) 95781149670 No Lo nger Active Checo Conklin MD Active SIMVASTATIN 20 MG TABS 1 po qd SIMVASTATIN 2116442192 5 Active Checo Conklin MD Active CHANTIX STARTING MONTH KARTHIK 0.5 MG X 11 & 1 MG X 42 TAB S 0.5mg daily for 3 days, then 0.5mg BID for 4 days, then 1mg BID VARENICLINE TARTRATE 26962475213 No Longer Active Checo Conklin MD Activ e XANAX 0.5 MG TABS 1 po BID PRN anxiety ALPRAZOLAM 44141902686 Active Checo Conklin MD Active CONCERTA 18 MG CR-TABS 1 po q a.m. METHYLPHENID ATE HCL 33496971705 No Longer Active Checo Conklin MD Active AMBIEN 5 MG TAB 1 po qHS PRN Insomnia ZOLPIDEM TARTRATE 49564630274 Active Checo Conklin MD Active TRAZODONE HCL 100 MG TAB 0.5 to 1 po qHS PRN Insomnia TRAZODONE HCL 35256514561 No Longer Active Checo Conklin MD Acti ve FIORICET 325-50-40 MG TAB 1 tablet by mouth four times daily as needed [id number] 89225821585 No Longer Active Checo Conklin MD Active PHENERGAN CREAM* 25mg applied to wrist q6hr PRN Nausea PHENERGAN CREAM* No Longer Active Checo Conklin MD A ctive FLONASE 50 MCG/ACT SUSP 1 spray each nostril am and hs FLUTICASONE PROPIONATE 68134648201 No Longer Active Checo Simms e ANTIPYRINE-BENZOCAINE 5.4-1.4 % SOLN 1-2 drops in affected ear BENZOCAINE-ANTIPYRINE 93247367218 No Longer Active Checo Conklin MD Active CEFDINIR 300 MG CAPS 1 po bid CEFDINIR 25221484 120 No Longer Active Checo Conklin MD Active PREDNISONE 20 MG TAB 2 tabs daily for 3 days, 1 t ab daily for 3 days, 1/2 tab daily for 2 days PREDNISONE 47144608036 No Longer Active Aracelis Conklin MD Active AZITHROMYCIN 250 MG TABS 2 po qd x 1 day, then 1 po qd x 4 days AZITHROMYCIN 82903891185 No Longer Active Checo Conklin MD Active PREDNISONE 20 MG TAB 2 tabs daily for 3 days, 1 t ab daily for 3 days, 1/2 tab daily for 2 days PREDNISONE 49256064722 No Longer Active Checo Conklin MD Active ZITHROMAX Z-KARTHIK 250 MG TABS 2 today, then 1 daily for 4 days 201 09/18/28 AZITHROMYCIN 22778833106 No Longer Active Paul Hamlin MD Active FOCALIN XR 10 MG [id number] 1 po q a.m. D EXMETHYLPHENIDATE HCL 04801790252 No Longer Active Paul Hamlin MD Activ e PERCOCET 10-325 MG TABS 1 tablet every 6 hours as needed for pain OXYCODONE-ACETAMINOPHEN 70583050475 No Longer Active Paul Hamlin MD Active LORTAB 5 5-500 MG TABS 1/2 to 1 tablet by mouth flaquito ry 4 hours as needed for pain HYDROCODONE-ACETAMINOPHEN 57096693423 No Longer Active Checo Conklin MD Active FOCALIN XR 15 MG [id number] 1 po q a.m. D EXMETHYLPHENIDATE HCL 52829738331 No Longer Active Checo Conklin MD Activ e ZOFRAN ODT 4 MG TBDP 1 po q6hr PRN Nausea ONDAN SETRON 87969622282 No Longer Active Checo Conklin MD Active PERCOCET 5-325 MG TABS 1 tablet by mouth every 6 hours as needed OXYCODONE-ACETAMINOPHEN 55299074936 No Longer Active Checo Conklin MD Active PYRIDIUM 200 MG TABS take 1 tab po TID prn urinary pain. 0 PHENAZOPYRIDINE HCL 11098877700 No Longer Active Checo Conklin MD Active FLUCONAZOLE 150 MG TABS take 1 tab po qday once 04/06 FLUCONAZOLE 67294909463 No Longer Active Dangelo Rangel MD Acti ve CIPRO 500 MG TAB 1 tablet by mouth twice daily CIPROFLOXACIN HCL 31545635658 No Longer Active Dangelo Rangel MD Active PYRIDIUM 200 MG TABS take 1 tab po TID prn urinary pain. 0 PYRIDIUM 200 MG TABS 2198665 PHENAZOPYRIDINE HCL Inactive PERCOCET 5-325 MG TABS 1 tablet by mouth every 6 hours as needed PERCOCET 5-325 MG TABS 4167755 OXYCODONE-ACETAMINOPHEN I nactive ZOFRAN ODT 4 MG TBDP 1 po q6hr PRN Nausea ZOFRAN ODT 4 MG TBDP 037662 ONDANSETRON Inactive FOCALIN XR 15 MG [id number] 1 po q a.m. F OCALIN XR 15 MG [id number]-GTE DEXMETHYLPHENIDATE HCL Inactive LORTAB 5 5-500 MG TABS 1/2 to 1 tablet by mouth flaquito ry 4 hours as needed for pain LORTAB 5 5-500 MG TABS HYDROCODONE-A CETAMINOPHEN Inactive PERCOCET 10-325 MG TABS 1 tablet every 6 hours as needed for pain PERCOCET 10-325 MG TABS 7029479 OXYCODONE-ACETAMINOPHEN Inactive FOCALIN XR 10 MG [id number] 1 po q a.m. F OCALIN XR 10 MG [id number] DEXMETHYLPHENIDATE HCL Inactive CEFDINIR 300 MG CAPS 1 po bid CEFDINIR 300 MG CAPS 20 0346 CEFDINIR Inactive ANTIPYRINE-BENZOCAINE 5.4-1.4 % SOLN 1-2 drops in affected ear ANTIPYRINE-BENZOCAINE 5.4-1.4 % SOLN BENZOCAINE-ANTIPYRINE I nactive FLONASE 50 MCG/ACT SUSP 1 spray each nostril am and hs FLONASE 50 MCG/ACT SUSP 9507527 FLUTICASONE PROPIONATE Inactive PHENERGAN CREAM* 25mg applied to wrist q6hr PRN Nausea PHENERGAN CREAM* Inactive FIORICET 325-50-40 MG TAB 1 tablet by mouth four times daily as needed FIORICET 325-50-40 MG TAB ACETAMINOPHEN-C AFF-BUTALBITAL Inactive TRAZODONE HCL 100 MG TAB 0.5 to 1 po qHS PRN Insomnia TRAZODONE HCL 100 MG TAB 803777 TRAZODONE HCL Inactive CONCERTA 18 MG CR-TABS [...] s prn cough HYDROCODONE-ACETAMINOPHEN 5-325 MG TABS 986677 HYDROCODONE-ACETAMINOPHEN Inactive PHENAZOPYRIDINE HCL 200 MG TABS take 1 tab po TID for bladder pa in PHENAZOPYRIDINE HCL 200 MG TABS 4650918 PHENAZOPYRIDINE HCL Inactive HYDROCODONE-ACETAMINOPHEN 5-325 MG TABS 1 po q 6hr PRN Pain 2013 HYDROCODONE-ACETAMINOPHEN 5-325 MG TABS 779641 HYDROCODONE-ACETAMINOPHEN Inactive CELEXA 20 MG TABS 1 tablet by mouth daily CELEXA 20 MG TABS 575396 CITALOPRAM HYDROBROMIDE Inactive REGLAN 10 MG TAB 1 po TID PRN Nausea REGLAN 10 MG TAB 031380 METOCLOPRAMIDE HCL Inactive LAMISIL 250 MG TAB 1 po qd LAMISIL 250 MG TAB 872231 TERBINAFINE HCL Inactive DICLOFENAC SODIUM 75 MG TBEC 1 tablet by mouth twice daily P RN Knee pain DICLOFENAC SODIUM 75 MG TBEC 764116 DICLOFENAC S ODIUM Inactive METOCLOPRAMIDE HCL 10 MG ORAL TABS take one PO tid PRN nausea 20 29/12/14 METOCLOPRAMIDE HCL 10 MG ORAL TABS 613489 METOCLOPRAMID E HCL Inactive TERBINAFINE HCL 250 MG ORAL TABS take one table PO one time abran y TERBINAFINE HCL 250 MG ORAL TABS 779409 TERBINAFINE HCL Inactive BUPROPION HCL ER (SR) 100 MG ORAL [id number] take one t ablet by mouth one time daily for one week then take 1 two times daily BUPROPION HCL ER (SR) 100 MG ORAL [id number] BUPROPION HCL Inacti ve TRAVEL SICKNESS 25 MG ORAL CHEW chew and swallow one t ablet every 6 hours as needed TRAVEL SICKNESS 25 MG ORAL CHEW 061321 MECLIZINE HCL Inactive SUMATRIPTAN SUCCINATE 100 MG ORAL TABS Take one PRN for migrane SUMATRIPTAN SUCCINATE 100 MG ORAL TABS 689708 SUMATRIPT AN SUCCINATE Inactive COMPRO 25 MG RECTAL SUPP insert or apply one supposit ory rectally as directed every 12 hours as needed for nausea COMP RO 25 MG RECTAL SUPP 062210 PROCHLORPERAZINE Inactive ONDANSETRON [address] one tablet on tongue and allow to dissolve every 6 hours as needed for vomitting ON DANSETRON 8 MG ORAL TBDP 448592 ONDANSETRON Inactive HYDROCODONE-ACETAMINOPHEN 5-325 MG TABS 0.5 to 1 tab b y mouth every 6 hours as needed HYDROCODONE-ACETAMINOPHEN 5-325 MG TABS 8 27448 HYDROCODONE-ACETAMINOPHEN Inactive BACTRIM DS 800-160 MG TAB 1 tab by mouth twice daily 2 BACTRIM DS 800-160 MG TAB 395724 TRIMETHOPRIM-SULFAMETHOXAZOLE Inac tive DIFLUCAN 150 MG TAB 1 tablet by mouth if needed, hold until symptoms start DIFLUCAN 150 MG TAB 19760325 FLUCONAZOLE Inactive IBUPROFEN 800 MG TABS 1 tab every 8 hours with food 31/03/21 IBUPROFEN 800 MG TABS 227262 IBUPROFEN Inactive HYDROCODONE-ACETAMINOPHEN 5-325 MG TABS 1 tab by mouth every 6 hours as needed HYDROCODONE-ACETAMINOPHEN 5-325 MG TABS 560028 HYDROCODONE-ACETAMINOPHEN Inactive BACTROBAN 2 % CREAM Apply to affected area BID for up to 10 days BACTROBAN 2 % CREAM 719851 MUPIROCIN CALCIUM Inactive MAGNESIUM CITRATE 1.745 GM/30ML ORAL SOLN 150ml po BID PRN C onstipation MAGNESIUM CITRATE 1.745 GM/30ML ORAL SOLN 559070 0 MAGNESIUM CITRATE Inactive DIFLUCAN 150 MG TAB 1 tablet by mouth qod DIFLUCAN 150 MG TAB 433120 FLUCONAZOLE Inactive BACTRIM DS 800-160 MG TAB 1 tab by mouth twice daily 2 BACTRIM DS 800-160 MG TAB 129165 TRIMETHOPRIM-SULFAMETHOXAZOLE Inac tive CLARITIN 10 MG TAB 1 tablet by mouth daily as needed for allergi es CLARITIN 10 MG TAB 984369 LORATADINE Inactive FLUTICASONE PROPIONATE 50 MCG/ACT NASAL SUSP 2 sprays/ nostril qd PRN Congestion/Allergies FLUTICASONE PROPION ATE 50 MCG/ACT NASAL SUSP 8050961 FLUTICASONE PROPIONATE Inactive CIPRO 500 MG TAB 1 tablet by mouth twice daily CIPRO 500 MG TAB 323823 CIPROFLOXACIN HCL Inactive FLUCONAZOLE 150 MG TABS take 1 tab po qday once 04/06 FLUCONAZOLE 150 MG TABS 451774 FLUCONAZOLE Inactive ZITHROMAX Z-KARTHIK 250 MG TABS 2 today, then 1 daily for 4 days 201 09/18/28 ZITHROMAX Z-KARTHIK 250 MG TABS 6911255 AZITHROMYCIN Inac tive PREDNISONE 20 MG TAB 2 tabs daily for 3 days, 1 t ab daily for 3 days, 1/2 tab daily for 2 days PREDNISONE 20 MG TAB 027663 PREDNISON E Inactive AZITHROMYCIN 250 MG TABS 2 po qd x 1 day, then 1 po qd x 4 days AZITHROMYCIN 250 MG TABS 8135040 AZITHROMYCIN Inactiv e PREDNISONE 20 MG TAB 2 tabs daily for 3 days, 1 t ab daily for 3 days, 1/2 tab daily for 2 days PREDNISONE 20 MG TAB 403506 PREDNISON E Inactive CEFDINIR 300 MG CAPS by mouth twice a day CEFDINIR 300 MG CAPS 507991 CEFDINIR Inactive TRIAMCINOLONE ACETONIDE 0.1 % OINT Apply to affected a reas TID for up to 2 weeks TRIAMCINOLONE ACETONIDE 0.1 % OINT 377961 6 TRIAMCINOLONE ACETONIDE Inactive PREDNISONE 20 MG TAB 2 tabs daily for 3 days, 1 t ab daily for 3 days, 1/2 tab daily for 2 days PREDNISONE 20 MG TAB 094785 PREDNISON E Inactive BACTRIM DS 800-160 MG TABS 1 po BID x 7 days 0 BACTRIM DS 800-160 MG TABS 508714 SULFAMETHOXAZOLE-TRIMETHOPRIM Inactive CIPRO 500 MG TAB 1 tablet by mouth twice daily CIPRO 500 MG TAB 132494 CIPROFLOXACIN HCL Inactive AZITHROMYCIN 250 MG TABS 2 po qd x 1 day, then 1 po qd x 4 days AZITHROMYCIN 250 MG TABS 9385678 AZITHROMYCIN Inactiv e FLAGYL 500 MG TAB 1 tablet by mouth bid FLAGYL 500 MG TAB 802519 METRONIDAZOLE Inactive AZITHROMYCIN 250 MG TABS 2 po qd x 1 day, then 1 po qd x 4 days AZITHROMYCIN 250 MG TABS 4009902 AZITHROMYCIN Inactiv e AMOXICILLIN 500 MG ORAL CAPS 2 po BID x 10 days 09/12 AMOXICILLIN 500 MG ORAL CAPS 148394 AMOXICILLIN Inactive Immunizations Vaccine Administration Date Value [...] CBC W/DIFF, Comp. Metabolic Panel, [place] [facility] [place] sodium, serum 139 mmol/L 447-061 3733/10/21 carbon dioxide, venous blood 33.5 mmol/L 21.0-32 [...] CBC W/DIFF, Comp. Metabolic Panel, [place] [facility] [place] [...] PANEL - Chemistry cholesterol, serum 192 mg/dL 391-240 8608/02/20 HDL cholesterol, serum 31 mg/dL > OR [...] 11 .0-15.0 platelet count 218 THOUSAND/UL 10*3/mm3 740-543 1908/02/20 mean platelet volume 9.7 fL 7.5-12.5 Lab Report: Chlamydia/GC [facility]/[id number] - Lab chlamydia DNA probe NOT DETECTED NOT DETECTED Lab Report: Chlamydia/[facility]/[id number] - Microbiology Neisseria gonorrhoeae DNA probe NOT [...] ative Encounters Code Encounter Date Provider Facility CPT-93227 Level 3 Est. Patient 11:29:55 CDT Checo Conklin MD [facility] CPT-05484 Level 4 Est. Patient 11:08:12 PATIENT SERVICE REP Checo Conklin MD [facility]-43857 Level 4 Est. Patient 16:06:48 PATIENT SERVICE REP Checo Conklin MD [facility]-84151 Level 3 Est. Patient 09:11:49 CDT Efren almendarez [facility]-46679 Level 2 Est. Patient 19:53:27 CDT Tanner hill MD [facility]-99594 Level 3 Est. Patient 09:15:34 CDT Efren almendarez [facility]-02136 Level 3 Est. Patient 11:28:51 PATIENT SERVICE REP Efren almendarez [facility]-51310 Level 4 Est. Patient 13:55:46 PATIENT SERVICE REP Checo Conklin MD [facility] CPT-30145 Level 4 Est. Patient 17:10:53 CDT Checo Conklin MD [facility] CPT-20273 Level 3 Est. Patient 15:56:22 CDT Checo Conklin MD [facility] CPT-29158 Level 3 Est. Patient 15:29:07 CDT Checo Conklin MD [facility] CPT-75290 Level 3 Est. Patient 14:38:41 CDT Checo Conklin MD [facility] CPT-90473 Level 3 Est. Patient 15:22:03 PATIENT SERVICE REP Thomas reynolds DO [facility] CPT-04893 Level 3 Est. Patient 13:34:17 PATIENT SERVICE REP Checo Conklin MD [facility] CPT-15513 Level 3 Est. Patient 12:29:32 CDT Dangelo arroyo MD [facility] CPT-24740 Level 3 Est. Patient 16:53:02 CDT Checo Conklin MD [facility] CPT-12895 Level 3 Est. Patient 16:37:13 CDT Checo Conklin MD [facility] CPT-95048 Level 3 Est. Patient 16:16:59 CDT Paul Hamlin MD [facility] CPT-17850 Level 3 Est. Patient 14:20:13 CDT Dangelo arroyo MD [facility] CPT-96032 Level 4 Est. Patient 11:29:33 CDT Checo Conklin MD [facility] CPT-47188 Level 3 Est. Patient 17:08:31 CDT Checo Conklin MD [facility] CPT-94276 Level 3 Est. Patient 16:50:42 PATIENT SERVICE REP Checo Conklin MD [facility] CPT-61340 Level 4 Est. Patient 09:26:08 PATIENT SERVICE REP Checo Conklin MD [facility] CPT-63743 Level 3 Est. Patient 11:37:10 CDT Checo Conklin MD [facility] CPT-04025 Level 4 Est. Patient 14:07:38 CDT Checo Conklin MD [facility] CPT-53124 Level 3 Est. Patient 09:54:41 CDT Checo Conklin MD [facility] CPT-86684 Level 3 Est. Patient 11:10:54 CDT Paul Hamlin MD [facility] CPT-13017 Level 3 Est. Patient 14:16:56 PATIENT SERVICE REP Checo Conklin MD [facility] CPT-97728 Level 3 Est. Patient 11:04:11 PATIENT SERVICE REP Checo Conklin MD [facility] CPT-86912 Level 3 Est. Patient 17:09:26 CDT Dangelo arroyo MD [facility] CPT-60643 Level 3 Est. Patient 16:54:37 CDT Checo Conklin MD [facility] Procedures Code Procedure Name Date Entry Date Standard Desc ription CPT-25386 UA w micro - LAB USE ONLY 17:06:46 CDT 2015 CPT-86568 [facility] Qual - LAB USE ONLY 17:06:46 CDT 05/06 CPT-93642 CMP - LAB USE ONLY 17:06:46 CDT CPT-48012 CBC with Diff - LAB USE ONLY 17:06:45 CDT 2 CPT-30711 Venipuncture Draw Fee 17:06:45 CDT CPT-LR Lesion Removal 19:53:27 CDT CPT-OV Office Visit 11:31:28 CDT CPT-42339 Tubersol 09:39:29 CDT CPT-J2550 Phenergan 25 mg (Promethazine) 13:59:02 PATIENT SERVICE REP CPT-J1885 Toradol 60 mg (Ketorolac) 13:59:02 PATIENT SERVICE REP 2012
--- OUTSIDE RECORDS SUMMARY | 2019-09-29 02:04 | XMS REPORT | Clinical Summary ---
Author Author Admin, Bethany Gonzales Organization [employer] Address Unknown Phone Unavailable Allergies, Adverse [...] TABS 1.5 po qd PAROX ETINE HCL [id number] Active HI Kerns Active FLUTICASONE PROPIONATE 50 MCG/ACT NASAL SUSP 2 sprays/ nostril qd PRN Congestion/Allergies FLUTICASONE PROPIONATE 5803849015 5 No Longer Active Checo Conklin MD Active AMOXICILLIN 500 MG ORAL CAPS 2 po BID x 10 days 09/12 AMOXICILLIN 67756348586 No Longer Active Checo Conklin MD Activ e MIRALAX ORAL POWD 8.5 to 17g po qd PRN Constipation POLYETHYLENE GLYCOL 3350 24548481242 Active Checo Conklin MD Active CLARITIN 10 MG TAB 1 tablet by mouth daily as needed for allergi es LORATADINE 68814510590 No Longer Active Checo Conklin MD Active BACTRIM DS 800-160 MG TAB 1 tab by mouth twice daily 2 TRIMETHOPRIM-SULFAMETHOXAZOLE 48712092096 No Longer Active Tanner Carrillo MD Active DIFLUCAN 150 MG TAB 1 tablet by mouth qod FLUCO NAZOLE 57243923931 No Longer Active Efren Medel APRN Active AZITHROMYCIN 250 MG TABS 2 po qd x 1 day, then 1 po qd x 4 days AZITHROMYCIN 19349730113 No Longer Active Efren Medel APRN Active FLAGYL 500 MG TAB 1 tablet by mouth bid METRONI DAZOLE 52766533804 No Longer Active Checo Conklin MD Active FOCALIN XR 10 MG ORAL [id number] 1 po q a.m. DEX METHYLPHENIDATE HCL 84968512146 Active Checo Conklin MD Active MAGNESIUM CITRATE 1.745 GM/30ML ORAL SOLN 150ml po BID PRN C onstipation MAGNESIUM CITRATE 55297934727 No Longer Active Checo Conklin MD Active BACTROBAN 2 % CREAM Apply to affected area BID for up to 10 days MUPIROCIN CALCIUM 15123852996 No Longer Active Checo Conklin MD Active HYDROCODONE-ACETAMINOPHEN 5-325 MG TABS 1 tab by mouth every 6 hours as needed HYDROCODONE-ACETAMINOPHEN 51559308997 No Longer Activ e Checo Conklin MD Active IBUPROFEN 800 MG TABS 1 tab every 8 hours with food 20 31/03/21 IBUPROFEN 17215090051 No Longer Active Checo Conklin MD Activ e DIFLUCAN 150 MG TAB 1 tablet by mouth if needed, hold until symptoms start FLUCONAZOLE 67889839284 No Longer Active Checo Ortiz MD Active BACTRIM DS 800-160 MG TAB 1 tab by mouth twice daily 2 TRIMETHOPRIM-SULFAMETHOXAZOLE 90205466990 No Longer Active Corry leong LPN Active HYDROCODONE-ACETAMINOPHEN 5-325 MG TABS 0.5 to 1 tab b y mouth every 6 hours as needed HYDROCODONE-ACETAMINOPHEN 81683095548 No Longer Active Checo Conklin MD Active ONDANSETRON [address] one tablet on tongue and allow to dissolve every 6 hours as needed for vomitting ONDANSETRO N 53960418213 No Longer Active Checo Conklin MD Active COMPRO 25 MG RECTAL SUPP insert or apply one supposit ory rectally as directed every 12 hours as needed for nausea PROCHLORPERA ZINE 87743266955 No Longer Active Checo Conklin MD Active SUMATRIPTAN SUCCINATE 100 MG ORAL TABS Take one PRN for migrane SUMATRIPTAN SUCCINATE 14783838326 No Longer Active Checo Conklin MD Active TRAVEL SICKNESS 25 MG ORAL CHEW chew and swallow one t ablet every 6 hours as needed MECLIZINE HCL 15254552882 No Longer Active Joe Conklin MD Active BUPROPION HCL ER (SR) 100 MG ORAL [id number] take one t ablet by mouth one time daily for one week then take 1 two times daily BUPROPION HCL 52298026040 No Longer Active Checo Conklin MD Activ e TERBINAFINE HCL 250 MG ORAL TABS take one table PO one time abran y TERBINAFINE HCL 27025699712 No Longer Active Checo Conklin MD Active METOCLOPRAMIDE HCL 10 MG ORAL TABS take one PO tid PRN nausea 20 29/12/14 METOCLOPRAMIDE HCL 30018312572 No Longer Active Checo Conklin MD Active DICLOFENAC SODIUM 75 MG TBEC 1 tablet by mouth twice daily P RN Knee pain DICLOFENAC SODIUM 79238380645 No Longer Active Checo Conklin MD Active LAMISIL 250 MG TAB 1 po qd TERBINAFINE HCL 548 19003058 No Longer Active Checo Conklin MD Active REGLAN 10 MG TAB 1 po TID PRN Nausea METOCLOPRA MIDE HCL 57273087323 No Longer Active Checo Conklin MD Active CELEXA 20 MG TABS 1 tablet by mouth daily CITALOPRAM HYDROBROMIDE 78155298341 No Longer Active Checo Conklin MD Activ e AZITHROMYCIN 250 MG TABS 2 po qd x 1 day, then 1 po qd x 4 days AZITHROMYCIN 45321482554 No Longer Active Checo Conklin MD Active HYDROCODONE-ACETAMINOPHEN 5-325 MG TABS 1 po q 6hr PRN Pain 2013 HYDROCODONE-ACETAMINOPHEN 36587850259 No Longer Active Lenora Conklin MD Active PHENAZOPYRIDINE HCL 200 MG TABS take 1 tab po TID for bladder pa in PHENAZOPYRIDINE HCL 66260859546 No Longer Active Checo Joshua Active CIPRO 500 MG TAB 1 tablet by mouth twice daily CIPROFLOXACIN HCL 82688276784 No Longer Active Dangelo Rangel MD Active HYDROCODONE-ACETAMINOPHEN 5-325 MG TABS 1/2 to 1 po q 4 hour s prn cough HYDROCODONE-ACETAMINOPHEN 11347938131 No Longer Activ e Dangelo Rangel MD Active BACTRIM DS 800-160 MG TABS 1 po BID x 7 days 0 SULFAMETHOXAZOLE-TRIMETHOPRIM 18788833122 No Longer Active Checo Conklin MD Active PREDNISONE 20 MG TAB 2 tabs daily for 3 days, 1 t ab daily for 3 days, 1/2 tab daily for 2 days PREDNISONE 62360131011 No Longer Active Checo Conklin MD Active TRIAMCINOLONE ACETONIDE 0.1 % OINT Apply to affected a reas TID for up to 2 weeks TRIAMCINOLONE ACETONIDE 06944925161 No Longer A ctive Checo Conklin MD Active CEFDINIR 300 MG CAPS by mouth twice a day CEFDI JAZZY 48968178720 No Longer Active Dangelo Rangel MD Active BUPROPION HCL (SMOKING DETER) 150 MG [id number] 1 a day for 1 week then 1 twice a day BUPROPION HCL (SMOKING DETER) 78254473361 No Lo nger Active Checo Conklin MD Active SIMVASTATIN 20 MG TABS 1 po qd SIMVASTATIN 4458397070 5 Active Checo Conklin MD Active CHANTIX STARTING MONTH KARTHIK 0.5 MG X 11 & 1 MG X 42 TAB S 0.5mg daily for 3 days, then 0.5mg BID for 4 days, then 1mg BID VARENICLINE TARTRATE 64672934484 No Longer Active Checo Coknlin MD Activ e XANAX 0.5 MG TABS 1 po BID PRN anxiety ALPRAZOLAM 83213352663 Active Checo Conklin MD Active CONCERTA 18 MG CR-TABS 1 po q a.m. METHYLPHENID ATE HCL 09387698475 No Longer Active Checo Conklin MD Active AMBIEN 5 MG TAB 1 po qHS PRN Insomnia ZOLPIDEM TARTRATE 90651459202 Active Checo Conklin MD Active TRAZODONE HCL 100 MG TAB 0.5 to 1 po qHS PRN Insomnia TRAZODONE HCL 75087559283 No Longer Active Checo Conklin MD Acti ve FIORICET 325-50-40 MG TAB 1 tablet by mouth four times daily as needed [id number] 64585889466 No Longer Active Checo Conklin MD Active PHENERGAN CREAM* 25mg applied to wrist q6hr PRN Nausea PHENERGAN CREAM* No Longer Active Checo Conklin MD A ctive FLONASE 50 MCG/ACT SUSP 1 spray each nostril am and hs FLUTICASONE PROPIONATE 65926696600 No Longer Active Checo Conklin MD Activ e ANTIPYRINE-BENZOCAINE 5.4-1.4 % SOLN 1-2 drops in affected ear BENZOCAINE-ANTIPYRINE 66987840496 No Longer Active Checo Conklin MD Active CEFDINIR 300 MG CAPS 1 po bid CEFDINIR 34188134 120 No Longer Active Checo Conklin MD Active PREDNISONE 20 MG TAB 2 tabs daily for 3 days, 1 t ab daily for 3 days, 1/2 tab daily for 2 days PREDNISONE 81675809005 No Longer Active Aracelis Conklin MD Active AZITHROMYCIN 250 MG TABS 2 po qd x 1 day, then 1 po qd x 4 days AZITHROMYCIN 16245588010 No Longer Active Checo Conklin MD Active PREDNISONE 20 MG TAB 2 tabs daily for 3 days, 1 t ab daily for 3 days, 1/2 tab daily for 2 days PREDNISONE 74492247204 No Longer Active Checo Conklin MD Active ZITHROMAX Z-KARTHIK 250 MG TABS 2 today, then 1 daily for 4 days 201 09/18/28 AZITHROMYCIN 87319708991 No Longer Active Paul Hamlin MD Active FOCALIN XR 10 MG [id number] 1 po q a.m. D EXMETHYLPHENIDATE HCL 99441092330 No Longer Active Paul Hamlin MD Activ e PERCOCET 10-325 MG TABS 1 tablet every 6 hours as needed for pain OXYCODONE-ACETAMINOPHEN 73068368064 No Longer Active Paul Hamlin MD Active LORTAB 5 5-500 MG TABS 1/2 to 1 tablet by mouth flaquito ry 4 hours as needed for pain HYDROCODONE-ACETAMINOPHEN 51493365143 No Longer Active Checo Conklin MD Active FOCALIN XR 15 MG [id number] 1 po q a.m. D EXMETHYLPHENIDATE HCL 14253580566 No Longer Active Checo Conklin MD Activ e ZOFRAN ODT 4 MG TBDP 1 po q6hr PRN Nausea ONDAN SETRON 75126613385 No Longer Active Checo Conklin MD Active PERCOCET 5-325 MG TABS 1 tablet by mouth every 6 hours as needed OXYCODONE-ACETAMINOPHEN 52399338501 No Longer Active Checo Conklin MD Active PYRIDIUM 200 MG TABS take 1 tab po TID prn urinary pain. 0 PHENAZOPYRIDINE HCL 73387801495 No Longer Active Checo Conklin MD Active FLUCONAZOLE 150 MG TABS take 1 tab po qday once 04/06 FLUCONAZOLE 30992709460 No Longer Active Dangelo Rangel MD Acti ve CIPRO 500 MG TAB 1 tablet by mouth twice daily CIPROFLOXACIN HCL 48127638686 No Longer Active Dangelo Rangel MD Active PYRIDIUM 200 MG TABS take 1 tab po TID prn urinary pain. 0 PYRIDIUM 200 MG TABS 1521330 PHENAZOPYRIDINE HCL Inactive PERCOCET 5-325 MG TABS 1 tablet by mouth every 6 hours as needed PERCOCET 5-325 MG TABS 4955227 OXYCODONE-ACETAMINOPHEN I nactive ZOFRAN ODT 4 MG TBDP 1 po q6hr PRN Nausea ZOFRAN ODT 4 MG TBDP 140121 ONDANSETRON Inactive FOCALIN XR 15 MG [id number] 1 po q a.m. F OCALIN XR 15 MG [id number] DEXMETHYLPHENIDATE HCL Inactive LORTAB 5 5-500 MG TABS 1/2 to 1 tablet by mouth flaquito ry 4 hours as needed for pain LORTAB 5 5-500 MG TABS HYDROCODONE-A CETAMINOPHEN Inactive PERCOCET 10-325 MG TABS 1 tablet every 6 hours as needed for pain PERCOCET 10-325 MG TABS 0315499 OXYCODONE-ACETAMINOPHEN Inactive FOCALIN XR 10 MG [id number] 1 po q a.m. F OCALIN XR 10 MG [id number] DEXMETHYLPHENIDATE HCL Inactive CEFDINIR 300 MG CAPS 1 po bid CEFDINIR 300 MG CAPS 20 0346 CEFDINIR Inactive ANTIPYRINE-BENZOCAINE 5.4-1.4 % SOLN 1-2 drops in affected ear ANTIPYRINE-BENZOCAINE 5.4-1.4 % SOLN BENZOCAINE-ANTIPYRINE I nactive FLONASE 50 MCG/ACT SUSP 1 spray each nostril am and hs FLONASE 50 MCG/ACT SUSP 6966681 FLUTICASONE PROPIONATE Inactive PHENERGAN CREAM* 25mg applied to wrist q6hr PRN Nausea PHENERGAN CREAM* Inactive FIORICET 325-50-40 MG TAB 1 tablet by mouth four times daily as needed FIORICET 325-50-40 MG TAB ACETAMINOPHEN-C AFF-BUTALBITAL Inactive TRAZODONE HCL 100 MG TAB 0.5 to 1 po qHS PRN Insomnia TRAZODONE HCL 100 MG TAB 218322 TRAZODONE HCL Inactive CONCERTA 18 MG CR-TABS [...] s prn cough HYDROCODONE-ACETAMINOPHEN 5-325 MG TABS 190753 HYDROCODONE-ACETAMINOPHEN Inactive PHENAZOPYRIDINE HCL 200 MG TABS take 1 tab po TID for bladder pa in PHENAZOPYRIDINE HCL 200 MG TABS 7641494 PHENAZOPYRIDINE HCL Inactive HYDROCODONE-ACETAMINOPHEN 5-325 MG TABS 1 po q 6hr PRN Pain 2013 HYDROCODONE-ACETAMINOPHEN 5-325 MG TABS 999776 HYDROCODONE-ACETAMINOPHEN Inactive CELEXA 20 MG TABS 1 tablet by mouth daily CELEXA 20 MG TABS 691745 CITALOPRAM HYDROBROMIDE Inactive REGLAN 10 MG TAB 1 po TID PRN Nausea REGLAN 10 MG TAB 933894 METOCLOPRAMIDE HCL Inactive LAMISIL 250 MG TAB 1 po qd LAMISIL 250 MG TAB 325707 TERBINAFINE HCL Inactive DICLOFENAC SODIUM 75 MG TBEC 1 tablet by mouth twice daily P RN Knee pain DICLOFENAC SODIUM 75 MG TBEC 844753 DICLOFENAC S ODIUM Inactive METOCLOPRAMIDE HCL 10 MG ORAL TABS take one PO tid PRN nausea 20 29/12/14 METOCLOPRAMIDE HCL 10 MG ORAL TABS 181308 METOCLOPRAMID E HCL Inactive TERBINAFINE HCL 250 MG ORAL TABS take one table PO one time abran y TERBINAFINE HCL 250 MG ORAL TABS 262660 TERBINAFINE HCL Inactive BUPROPION HCL ER (SR) 100 MG ORAL [id number] take one t ablet by mouth one time daily for one week then take 1 two times daily BUPROPION HCL ER (SR) 100 MG ORAL [id number] BUPROPION HCL Inacti ve TRAVEL SICKNESS 25 MG ORAL CHEW chew and swallow one t ablet every 6 hours as needed TRAVEL SICKNESS 25 MG ORAL CHEW 517629 MECLIZINE HCL Inactive SUMATRIPTAN SUCCINATE 100 MG ORAL TABS Take one PRN for migrane SUMATRIPTAN SUCCINATE 100 MG ORAL TABS 549535 SUMATRIPT AN SUCCINATE Inactive COMPRO 25 MG RECTAL SUPP insert or apply one supposit ory rectally as directed every 12 hours as needed for nausea COMP RO 25 MG RECTAL SUPP 843117 PROCHLORPERAZINE Inactive ONDANSETRON [address] one tablet on tongue and allow to dissolve every 6 hours as needed for vomitting ON DANSETRON 8 MG ORAL TBDP 313635 ONDANSETRON Inactive HYDROCODONE-ACETAMINOPHEN 5-325 MG TABS 0.5 to 1 tab b y mouth every 6 hours as needed HYDROCODONE-ACETAMINOPHEN 5-325 MG TABS 8 67678 HYDROCODONE-ACETAMINOPHEN Inactive BACTRIM DS 800-160 MG TAB 1 tab by mouth twice daily 2 BACTRIM DS 800-160 MG TAB 409065 TRIMETHOPRIM-SULFAMETHOXAZOLE Inac tive DIFLUCAN 150 MG TAB 1 tablet by mouth if needed, hold until symptoms start DIFLUCAN 150 MG TAB 338983 FLUCONAZOLE Inactive IBUPROFEN 800 MG TABS 1 tab every 8 hours with food 31/03/21 IBUPROFEN 800 MG TABS 843853 IBUPROFEN Inactive HYDROCODONE-ACETAMINOPHEN 5-325 MG TABS 1 tab by mouth every 6 hours as needed HYDROCODONE-ACETAMINOPHEN 5-325 MG TABS 641129 HYDROCODONE-ACETAMINOPHEN Inactive BACTROBAN 2 % CREAM Apply to affected area BID for up to 10 days BACTROBAN 2 % CREAM 471778 MUPIROCIN CALCIUM Inactive MAGNESIUM CITRATE 1.745 GM/30ML ORAL SOLN 150ml po BID PRN C onstipation MAGNESIUM CITRATE 1.745 GM/30ML ORAL SOLN 684705 0 MAGNESIUM CITRATE Inactive DIFLUCAN 150 MG TAB 1 tablet by mouth qod DIFLUCAN 150 MG TAB 682797 FLUCONAZOLE Inactive BACTRIM DS 800-160 MG TAB 1 tab by mouth twice daily 2 BACTRIM DS 800-160 MG TAB 467274 TRIMETHOPRIM-SULFAMETHOXAZOLE Inac tive CLARITIN 10 MG TAB 1 tablet by mouth daily as needed for allergi es CLARITIN 10 MG TAB 025765 LORATADINE Inactive FLUTICASONE PROPIONATE 50 MCG/ACT NASAL SUSP 2 sprays/ nostril qd PRN Congestion/Allergies FLUTICASONE PROPION ATE 50 MCG/ACT NASAL SUSP 3971637 FLUTICASONE PROPIONATE Inactive CIPRO 500 MG TAB 1 tablet by mouth twice daily CIPRO 500 MG TAB 339659 CIPROFLOXACIN HCL Inactive FLUCONAZOLE 150 MG TABS take 1 tab po qday once 04/06 FLUCONAZOLE 150 MG TABS 942397 FLUCONAZOLE Inactive ZITHROMAX Z-KARTHIK 250 MG TABS 2 today, then 1 daily for 4 days 201 09/18/28 ZITHROMAX Z-KARTHIK 250 MG TABS 7471635 AZITHROMYCIN Inac tive PREDNISONE 20 MG TAB 2 tabs daily for 3 days, 1 t ab daily for 3 days, 1/2 tab daily for 2 days PREDNISONE 20 MG TAB 515566 PREDNISON E Inactive AZITHROMYCIN 250 MG TABS 2 po qd x 1 day, then 1 po qd x 4 days AZITHROMYCIN 250 MG TABS 3975947 AZITHROMYCIN Inactiv e PREDNISONE 20 MG TAB 2 tabs daily for 3 days, 1 t ab daily for 3 days, 1/2 tab daily for 2 days PREDNISONE 20 MG TAB 148552 PREDNISON E Inactive CEFDINIR 300 MG CAPS by mouth twice a day CEFDINIR 300 MG CAPS 151120 CEFDINIR Inactive TRIAMCINOLONE ACETONIDE 0.1 % OINT Apply to affected a reas TID for up to 2 weeks TRIAMCINOLONE ACETONIDE 0.1 % OINT 513899 6 TRIAMCINOLONE ACETONIDE Inactive PREDNISONE 20 MG TAB 2 tabs daily for 3 days, 1 t ab daily for 3 days, 1/2 tab daily for 2 days PREDNISONE 20 MG TAB 953480 PREDNISON E Inactive BACTRIM DS 800-160 MG TABS 1 po BID x 7 days 0 BACTRIM DS 800-160 MG TABS 897980 SULFAMETHOXAZOLE-TRIMETHOPRIM Inactive CIPRO 500 MG TAB 1 tablet by mouth twice daily CIPRO 500 MG TAB 792497 CIPROFLOXACIN HCL Inactive AZITHROMYCIN 250 MG TABS 2 po qd x 1 day, then 1 po qd x 4 days AZITHROMYCIN 250 MG TABS 3192640 AZITHROMYCIN Inactiv e FLAGYL 500 MG TAB 1 tablet by mouth bid FLAGYL 500 MG TAB 465540 METRONIDAZOLE Inactive AZITHROMYCIN 250 MG TABS 2 po qd x 1 day, then 1 po qd x 4 days AZITHROMYCIN 250 MG TABS 2468375 AZITHROMYCIN Inactiv e AMOXICILLIN 500 MG ORAL CAPS 2 po BID x 10 days 09/12 AMOXICILLIN 500 MG ORAL CAPS 077496 AMOXICILLIN Inactive Immunizations Vaccine Administration Date Value [...] Report: CBC W/DIFF, Comp. Metabolic Panel, [place] [facility] [place] sodium, serum 139 mmol/L 220-632 5289/10/21 carbon dioxide, venous blood 33.5 mmol/L 21.0-32 [...] Report: CBC W/DIFF, Comp. Metabolic Panel, Qual [facility] [place] leukocyte count, blood [...] PANEL - Chemistry cholesterol, serum 192 mg/dL 619-103 2675/02/20 HDL cholesterol, serum 31 mg/dL > OR [...] 11 .0-15.0 platelet count 218 THOUSAND/UL 10*3/mm3 563-349 6918/02/20 mean platelet volume 9.7 fL 7.5-12.5 Lab Report: Chlamydia/GC APTIMA/33716 - Lab chlamydia DNA probe NOT DETECTED NOT DETECTED Lab Report: Chlamydia/GC APTIMA/10533 - Microbiology Neisseria gonorrhoeae DNA probe NOT [...] 5.0-8.5 Encounters Code Encounter Date Provider Facility CPT-12087 Level 3 Est. Patient 11:29:55 CDT Checo Conklin MD [facility] CPT-14583 Level 4 Est. Patient 11:08:12 [employer] Checo Conklin MD [facility] CPT-05080 Level 4 Est. Patient 16:06:48 [employer] SALES [employer]ER Checo Conklin MD [facility] CPT-08073 Level 3 Est. Patient 09:11:49 CDT Efren almendarez [facility] CPT-88808 Level 2 Est. Patient 19:53:27 CDT Tanner hill MD [facility] CPT-32639 Level 3 Est. Patient 09:15:34 CDT Efren almendarez [facility] CPT-26842 Level 3 Est. Patient 11:28:51 [employer] SAL[employer]INEER Efren almendarez [facility] CPT-43146 Level 4 Est. 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 Patient 17:10:53 CDT Checo Conklin MD [facility] CPT-52594 Level 3 Est. Patient 15:56:22 CDT Checo Conklin MD [facility] CPT-87240 Level 3 Est. Patient 15:29:07 CDT Checo Conklin MD [facility] CPT-49861 Level 3 Est. Patient 14:38:41 CDT Checo Conklin MD [facility] CPT-82505 Level 3 Est. Patient 15:22:03 [employer]AL SALES [employer]INEER Thomas reynolds DO [facility] CPT-00380 Level 3 Est. Patient 13:34:17 [employer]AL SALES ENGINEER Checo Conklin MD [facility] CPT-02952 Level 3 Est. Patient 12:29:32 CDT Dangelo arroyo MD [facility] CPT-50041 Level 3 Est. Patient 16:53:02 CDT Checo Conklin MD [facility] CPT-73316 Level 3 Est. Patient 16:37:13 CDT Checo Conklin MD [facility] CPT-83510 Level 3 Est. Patient 16:16:59 CDT Paul Hamlin MD [facility] CPT-16221 Level 3 Est. Patient 14:20:13 CDT Dangelo arroyo MD [facility] CPT-29710 Level 4 Est. Patient 11:29:33 CDT Checo Conklin MD [facility] CPT-00792 Level 3 Est. Patient 17:08:31 CDT Checo Conklin MD [facility] CPT-48606 Level 3 Est. Patient 16:50:42 [employer] SALES ENGINEER Checo Conklin MD [facility] CPT-10430 Level 4 Est. 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 Patient 11:37:10 CDT Checo Conklin MD [facility] CPT-02652 Level 4 Est. Patient 14:07:38 CDT Checo Conklin MD [facility] CPT-34672 Level 3 Est. Patient 09:54:41 CDT Checo Conklin MD [facility] CPT-31342 Level 3 Est. Patient 11:10:54 CDT Paul Hamlin MD [facility] CPT-82304 Level 3 Est. Patient 14:16:56 [employer]AL SALES ENGINEER Checo Conklin MD [facility] CPT-67774 Level 3 Est. Patient 11:04:11 [employer]AL SALES ENGINEER Checo Conklin MD [facility] CPT-26892 Level 3 Est. Patient 17:09:26 CDT Dangelo arroyo MD [facility] CPT-40530 Level 3 Est. Patient 16:54:37 CDT Checo Conklin MD [facility] Procedures Code Procedure Name Date Entry Date Standard Desc ription CPT-98278 UA w micro - LAB USE ONLY 17:06:46 CDT 2015 CPT-12169 [facility] Qual - LAB USE ONLY 17:06:46 CDT 05/06 CPT-22614 CMP - LAB USE ONLY 17:06:46 CDT CPT-64006 CBC with Diff - LAB USE ONLY 17:06:45 CDT 2 CPT-83259 Venipuncture Draw Fee 17:06:45 CDT CPT-LR Lesion Removal 19:53:27 CDT CPT-OV Office Visit 11:31:28 CDT CPT-84971 Tubersol 09:39:29 CDT CPT-J2550 Phenergan 25 mg (Promethazine) 13:59:02 [employer] SAL[employer]ER CPT-J1885 Toradol 60 mg (Ketorolac) 13:59:02 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
--- OUTSIDE RECORDS SUMMARY | 2019-09-29 02:05 | XMS REPORT | Clinical Summary ---
[...] TABS 1.5 po qd PAROX ETINE HCL 11901742405 Active Checo Conklin MD Active FLUTICASONE PROPIONATE 50 MCG/ACT NASAL SUSP 2 sprays/ nostril qd PRN Congestion/Allergies FLUTICASONE PROPIONATE 1667746456 5 No Longer Active Checo Conklin MD Active AMOXICILLIN 500 MG ORAL CAPS 2 po BID x 10 days 09/12 AMOXICILLIN 79231596270 No Longer Active Checo Conklin MD Activ e MIRALAX ORAL POWD 8.5 to 17g po qd PRN Constipation POLYETHYLENE GLYCOL 3350 78276340731 Active Checo Conklin MD Active CLARITIN 10 MG TAB 1 tablet by mouth daily as needed for allergi es LORATADINE 19215643541 No Longer Active Checo Conklin MD Active BACTRIM DS 800-160 MG TAB 1 tab by mouth twice daily 2 TRIMETHOPRIM-SULFAMETHOXAZOLE 94483004329 No Longer Active Tanner Carrillo MD Active DIFLUCAN 150 MG TAB 1 tablet by mouth qod FLUCO NAZOLE 63448373705 No Longer Active Efren Medel APRN Active AZITHROMYCIN 250 MG TABS 2 po qd x 1 day, then 1 po qd x 4 days AZITHROMYCIN 61402596089 No Longer Active Jilyndsayina Frasandra UNDER CUTTER Active FLAGYL 500 MG TAB 1 tablet by mouth bid METRONI DAZOLE 15403990787 No Longer Active Checo Conklin MD Active FOCALIN XR 10 MG ORAL [id number] 1 po q a.m. DEX METHYLPHENIDATE HCL 38312054197 Active Checo Conklin MD Active MAGNESIUM CITRATE 1.745 GM/30ML ORAL SOLN 150ml po BID PRN C onstipation MAGNESIUM CITRATE 18706498221 No Longer Active Checo Conklin MD Active BACTROBAN 2 % CREAM Apply to affected area BID for up to 10 days MUPIROCIN CALCIUM 86514031049 No Longer Active Checo Conklin MD Active HYDROCODONE-ACETAMINOPHEN 5-325 MG TABS 1 tab by mouth every 6 hours as needed HYDROCODONE-ACETAMINOPHEN 49286635212 No Longer Activ e Checo Conklin MD Active IBUPROFEN 800 MG TABS 1 tab every 8 hours with food 20 31/03/21 IBUPROFEN 04758256414 No Longer Active Checo Conklin MD Activ e DIFLUCAN 150 MG TAB 1 tablet by mouth if needed, hold until symptoms start FLUCONAZOLE 08676889227 No Longer Active Checo Ortiz MD Active BACTRIM DS 800-160 MG TAB 1 tab by mouth twice daily 2 TRIMETHOPRIM-SULFAMETHOXAZOLE 27111220157 No Longer Active Corry leong LPN Active HYDROCODONE-ACETAMINOPHEN 5-325 MG TABS 0.5 to 1 tab b y mouth every 6 hours as needed HYDROCODONE-ACETAMINOPHEN 13589013078 No Longer Active Checo Conklin MD Active ONDANSETRON [address] one tablet on tongue and allow to dissolve every 6 hours as needed for vomitting ONDANSETRO N 23175408717 No Longer Active Checo Conklin MD Active COMPRO 25 MG RECTAL SUPP insert or apply one supposit ory rectally as directed every 12 hours as needed for nausea PROCHLORPERA ZINE 14499317573 No Longer Active Checo Conklin MD Active SUMATRIPTAN SUCCINATE 100 MG ORAL TABS Take one PRN for migrane SUMATRIPTAN SUCCINATE 30889218627 No Longer Active Checo Conklin MD Active TRAVEL SICKNESS 25 MG ORAL CHEW chew and swallow one t ablet every 6 hours as needed MECLIZINE HCL 42913448874 No Longer Active Joe Conklin MD Active BUPROPION HCL ER (SR) 100 MG ORAL [id number] take one t ablet by mouth one time daily for one week then take 1 two times daily BUPROPION HCL 18245364280 No Longer Active Checo Conklin MD Activ e TERBINAFINE HCL 250 MG ORAL TABS take one table PO one time abran y TERBINAFINE HCL 88864753958 No Longer Active Checo Conklin MD Active METOCLOPRAMIDE HCL 10 MG ORAL TABS take one PO tid PRN nausea 20 29/12/14 METOCLOPRAMIDE HCL 89696051638 No Longer Active Checo Conklin MD Active DICLOFENAC SODIUM 75 MG TBEC 1 tablet by mouth twice daily P RN Knee pain DICLOFENAC SODIUM 22064780894 No Longer Active Checo Conklin MD Active LAMISIL 250 MG TAB 1 po qd TERBINAFINE HCL 548 04937142 No Longer Active Checo Conklin MD Active REGLAN 10 MG TAB 1 po TID PRN Nausea METOCLOPRA MIDE HCL 06384966513 No Longer Active Checo Conklin MD Active CELEXA 20 MG TABS 1 tablet by mouth daily CITALOPRAM HYDROBROMIDE 09361463147 No Longer Active Checo Conklin MD Activ e AZITHROMYCIN 250 MG TABS 2 po qd x 1 day, then 1 po qd x 4 days AZITHROMYCIN 62278990181 No Longer Active Checo Conklin MD Active HYDROCODONE-ACETAMINOPHEN 5-325 MG TABS 1 po q 6hr PRN Pain 2013 HYDROCODONE-ACETAMINOPHEN 37738808752 No Longer Active Lenora Conklin MD Active PHENAZOPYRIDINE HCL 200 MG TABS take 1 tab po TID for bladder pa in PHENAZOPYRIDINE HCL 80303271455 No Longer Active Checo Joshua Active CIPRO 500 MG TAB 1 tablet by mouth twice daily CIPROFLOXACIN HCL 20032906139 No Longer Active Dangelo Rangel MD Active HYDROCODONE-ACETAMINOPHEN 5-325 MG TABS 1/2 to 1 po q 4 hour s prn cough HYDROCODONE-ACETAMINOPHEN 69264063254 No Longer Activ e Dangelo Rangel MD Active BACTRIM DS 800-160 MG TABS 1 po BID x 7 days 0 SULFAMETHOXAZOLE-TRIMETHOPRIM 65943324925 No Longer Active Checo Conklin MD Active PREDNISONE 20 MG TAB 2 tabs daily for 3 days, 1 t ab daily for 3 days, 1/2 tab daily for 2 days PREDNISONE 69542099337 No Longer Active Checo Conklin MD Active TRIAMCINOLONE ACETONIDE 0.1 % OINT Apply to affected a reas TID for up to 2 weeks TRIAMCINOLONE ACETONIDE 31674621290 No Longer A ctive Checo Conklin MD Active CEFDINIR 300 MG CAPS by mouth twice a day CEFDI JAZZY 19956809663 No Longer Active Dangelo Rangel MD Active BUPROPION HCL (SMOKING DETER) 150 MG [id number] 1 a day for 1 week then 1 twice a day BUPROPION HCL (SMOKING DETER) 30904169996 No Lo nger Active Checo Conklin MD Active SIMVASTATIN 20 MG TABS 1 po qd SIMVASTATIN 9351558791 5 Active Checo Conklin MD Active CHANTIX STARTING MONTH KARTHIK 0.5 MG X 11 & 1 MG X 42 TAB S 0.5mg daily for 3 days, then 0.5mg BID for 4 days, then 1mg BID VARENICLINE TARTRATE 62594088744 No Longer Active Checo Conklin MD Activ e XANAX 0.5 MG TABS 1 po BID PRN anxiety ALPRAZOLAM 73487053751 Active Checo Conklin MD Active CONCERTA 18 MG CR-TABS 1 po q a.m. METHYLPHENID ATE HCL 58136820917 No Longer Active Checo Conklin MD Active AMBIEN 5 MG TAB 1 po qHS PRN Insomnia ZOLPIDEM TARTRATE 78128931842 Active Checo Conklin MD Active TRAZODONE HCL 100 MG TAB 0.5 to 1 po qHS PRN Insomnia TRAZODONE HCL 18431482145 No Longer Active Checo Conklin MD Acti ve FIORICET 325-50-40 MG TAB 1 tablet by mouth four times daily as needed [id number] 66916800013 No Longer Active Checo Conklin MD Active PHENERGAN CREAM* 25mg applied to wrist q6hr PRN Nausea PHENERGAN CREAM* No Longer Active Checo Conklin MD A ctive FLONASE 50 MCG/ACT SUSP 1 spray each nostril am and hs FLUTICASONE PROPIONATE 32035739833 No Longer Active Checo Conklin MD Activ e ANTIPYRINE-BENZOCAINE 5.4-1.4 % SOLN 1-2 drops in affected ear BENZOCAINE-ANTIPYRINE 79923473913 No Longer Active Checo Conklin MD Active CEFDINIR 300 MG CAPS 1 po bid CEFDINIR 13646431 120 No Longer Active Checo Conklin MD Active PREDNISONE 20 MG TAB 2 tabs daily for 3 days, 1 t ab daily for 3 days, 1/2 tab daily for 2 days PREDNISONE 91839190098 No Longer Active Aracelis Conklin MD Active AZITHROMYCIN 250 MG TABS 2 po qd x 1 day, then 1 po qd x 4 days AZITHROMYCIN 99133465845 No Longer Active Checo Conklin MD Active PREDNISONE 20 MG TAB 2 tabs daily for 3 days, 1 t ab daily for 3 days, 1/2 tab daily for 2 days PREDNISONE 82609938989 No Longer Active Checo Conklin MD Active ZITHROMAX Z-KARTHIK 250 MG TABS 2 today, then 1 daily for 4 days 201 09/18/28 AZITHROMYCIN 76796868248 No Longer Active Paul Hamlin MD Active FOCALIN XR 10 MG [id number] 1 po q a.m. D EXMETHYLPHENIDATE HCL 87142237483 No Longer Active Paul Hamlin MD Activ e PERCOCET 10-325 MG TABS 1 tablet every 6 hours as needed for pain OXYCODONE-ACETAMINOPHEN 90262237341 No Longer Active Paul Hamlin MD Active LORTAB 5 5-500 MG TABS 1/2 to 1 tablet by mouth flaquito ry 4 hours as needed for pain HYDROCODONE-ACETAMINOPHEN 13506870660 No Longer Active Checo Conklin MD Active FOCALIN XR 15 MG [id number] 1 po q a.m. D EXMETHYLPHENIDATE HCL 54266010332 No Longer Active Checo Conklin MD Activ e ZOFRAN ODT 4 MG TBDP 1 po q6hr PRN Nausea ONDAN SETRON 87996179656 No Longer Active Checo Conklin MD Active PERCOCET 5-325 MG TABS 1 tablet by mouth every 6 hours as needed OXYCODONE-ACETAMINOPHEN 06612809777 No Longer Active Checo Conklin MD Active PYRIDIUM 200 MG TABS take 1 tab po TID prn urinary pain. 0 PHENAZOPYRIDINE HCL 65374363311 No Longer Active Checo Conklin MD Active FLUCONAZOLE 150 MG TABS take 1 tab po qday once 0 04/06 FLUCONAZOLE 44147864363 No Longer Active Dangelo Rangel MD Acti ve CIPRO 500 MG TAB 1 tablet by mouth twice daily CIPROFLOXACIN HCL 42345369993 No Longer Active Dangelo Rangel MD Active PYRIDIUM 200 MG TABS take 1 tab po TID prn urinary pain. 0 PYRIDIUM 200 MG TABS 9996831 PHENAZOPYRIDINE HCL Inactive PERCOCET 5-325 MG TABS 1 tablet by mouth every 6 hours as needed PERCOCET 5-325 MG TABS 1954141 OXYCODONE-ACETAMINOPHEN I nactive ZOFRAN ODT 4 MG TBDP 1 po q6hr PRN Nausea ZOFRAN ODT 4 MG TBDP 569795 ONDANSETRON Inactive FOCALIN XR 15 MG [id number] 1 po q a.m. F OCALIN XR 15 MG [id number] DEXMETHYLPHENIDATE HCL Inactive LORTAB 5 5-500 MG TABS 1/2 to 1 tablet by mouth flaquito ry 4 hours as needed for pain LORTAB 5 5-500 MG TABS 476886 HYDROCODONE-A CETAMINOPHEN Inactive PERCOCET 10-325 MG TABS 1 tablet every 6 hours as needed for pain PERCOCET 10-325 MG TABS 0041555 OXYCODONE-ACETAMINOPHEN Inactive FOCALIN XR 10 MG [id number] 1 po q a.m. F OCALIN XR 10 MG [id number] DEXMETHYLPHENIDATE HCL Inactive CEFDINIR 300 MG CAPS 1 po bid CEFDINIR 300 MG CAPS 20 0346 CEFDINIR Inactive ANTIPYRINE-BENZOCAINE 5.4-1.4 % SOLN 1-2 drops in affected ear ANTIPYRINE-BENZOCAINE 5.4-1.4 % SOLN 631198 BENZOCAINE-ANTIPYRINE I nactive FLONASE 50 MCG/ACT SUSP 1 spray each nostril am and hs FLONASE 50 MCG/ACT SUSP 9366084 FLUTICASONE PROPIONATE Inactive PHENERGAN CREAM* 25mg applied to wrist q6hr PRN Nausea PHENERGAN CREAM* Inactive FIORICET 325-50-40 MG TAB 1 tablet by mouth four times daily as needed FIORICET 325-50-40 MG TAB ACETAMINOPHEN-C AFF-BUTALBITAL Inactive TRAZODONE HCL 100 MG TAB 0.5 to 1 po qHS PRN Insomnia TRAZODONE HCL 100 MG TAB 026478 TRAZODONE HCL Inactive CONCERTA 18 MG CR-TABS [...] s prn cough HYDROCODONE-ACETAMINOPHEN 5-325 MG TABS 865818 HYDROCODONE-ACETAMINOPHEN Inactive PHENAZOPYRIDINE HCL 200 MG TABS take 1 tab po TID for bladder pa in PHENAZOPYRIDINE HCL 200 MG TABS 2867289 PHENAZOPYRIDINE HCL Inactive HYDROCODONE-ACETAMINOPHEN 5-325 MG TABS 1 po q 6hr PRN Pain 2013 HYDROCODONE-ACETAMINOPHEN 5-325 MG TABS 062171 HYDROCODONE-ACETAMINOPHEN Inactive CELEXA 20 MG TABS 1 tablet by mouth daily CELEXA 20 MG TABS 878954 CITALOPRAM HYDROBROMIDE Inactive REGLAN 10 MG TAB 1 po TID PRN Nausea REGLAN 10 MG TAB 308080 METOCLOPRAMIDE HCL Inactive LAMISIL 250 MG TAB 1 po qd LAMISIL 250 MG TAB 411002 TERBINAFINE HCL Inactive DICLOFENAC SODIUM 75 MG TBEC 1 tablet by mouth twice daily P RN Knee pain DICLOFENAC SODIUM 75 MG TBEC 445796 DICLOFENAC S ODIUM Inactive METOCLOPRAMIDE HCL 10 MG ORAL TABS take one PO tid PRN nausea 20 29/12/14 METOCLOPRAMIDE HCL 10 MG ORAL TABS 622509 METOCLOPRAMID E HCL Inactive TERBINAFINE HCL 250 MG ORAL TABS take one table PO one time abran y TERBINAFINE HCL 250 MG ORAL TABS 194814 TERBINAFINE HCL Inactive BUPROPION HCL ER (SR) 100 MG ORAL [id number] take one t ablet by mouth one time daily for one week then take 1 two times daily BUPROPION HCL ER (SR) 100 MG ORAL [id number] BUPROPION HCL Inacti ve TRAVEL SICKNESS 25 MG ORAL CHEW chew and swallow one t ablet every 6 hours as needed TRAVEL SICKNESS 25 MG ORAL CHEW 917009 MECLIZINE HCL Inactive SUMATRIPTAN SUCCINATE 100 MG ORAL TABS Take one PRN for migrane SUMATRIPTAN SUCCINATE 100 MG ORAL TABS 174590 SUMATRIPT AN SUCCINATE Inactive COMPRO 25 MG RECTAL SUPP insert or apply one supposit ory rectally as directed every 12 hours as needed for nausea COMP RO 25 MG RECTAL SUPP 970149 PROCHLORPERAZINE Inactive ONDANSETRON [address] one tablet on tongue and allow to dissolve every 6 hours as needed for vomitting ON DANSETRON 8 MG ORAL TBDP 164764 ONDANSETRON Inactive HYDROCODONE-ACETAMINOPHEN 5-325 MG TABS 0.5 to 1 tab b y mouth every 6 hours as needed HYDROCODONE-ACETAMINOPHEN 5-325 MG TABS 8 58214 HYDROCODONE-ACETAMINOPHEN Inactive BACTRIM DS 800-160 MG TAB 1 tab by mouth twice daily 2 BACTRIM DS 800-160 MG TAB 19820918 TRIMETHOPRIM-SULFAMETHOXAZOLE Inac tive DIFLUCAN 150 MG TAB 1 tablet by mouth if needed, hold until symptoms start DIFLUCAN 150 MG TAB 19760325 FLUCONAZOLE Inactive IBUPROFEN 800 MG TABS 1 tab every 8 hours with food 31/03/21 IBUPROFEN 800 MG TABS 978500 IBUPROFEN Inactive HYDROCODONE-ACETAMINOPHEN 5-325 MG TABS 1 tab by mouth every 6 hours as needed HYDROCODONE-ACETAMINOPHEN 5-325 MG TABS 816433 HYDROCODONE-ACETAMINOPHEN Inactive BACTROBAN 2 % CREAM Apply to affected area BID for up to 10 days BACTROBAN 2 % CREAM 739622 MUPIROCIN CALCIUM Inactive MAGNESIUM CITRATE 1.745 GM/30ML ORAL SOLN 150ml po BID PRN C onstipation MAGNESIUM CITRATE 1.745 GM/30ML ORAL SOLN 711582 0 MAGNESIUM CITRATE Inactive DIFLUCAN 150 MG TAB 1 tablet by mouth qod DIFLUCAN 150 MG TAB 908856 FLUCONAZOLE Inactive BACTRIM DS 800-160 MG TAB 1 tab by mouth twice daily 2 BACTRIM DS 800-160 MG TAB 19820918 TRIMETHOPRIM-SULFAMETHOXAZOLE Inac tive CLARITIN 10 MG TAB 1 tablet by mouth daily as needed for allergi es CLARITIN 10 MG TAB 391270 LORATADINE Inactive FLUTICASONE PROPIONATE 50 MCG/ACT NASAL SUSP 2 sprays/ nostril qd PRN Congestion/Allergies FLUTICASONE PROPION ATE 50 MCG/ACT NASAL SUSP 3056371 FLUTICASONE PROPIONATE Inactive CIPRO 500 MG TAB 1 tablet by mouth twice daily CIPRO 500 MG TAB 622799 CIPROFLOXACIN HCL Inactive FLUCONAZOLE 150 MG TABS take 1 tab po qday once 04/06 FLUCONAZOLE 150 MG TABS 281399 FLUCONAZOLE Inactive ZITHROMAX Z-KARTHIK 250 MG TABS 2 today, then 1 daily for 4 days 201 09/18/28 ZITHROMAX Z-KARTHIK 250 MG TABS 353521 AZITHROMYCIN Inac tive PREDNISONE 20 MG TAB 2 tabs daily for 3 days, 1 t ab daily for 3 days, 1/2 tab daily for 2 days PREDNISONE 20 MG TAB 579812 PREDNISON E Inactive AZITHROMYCIN 250 MG TABS 2 po qd x 1 day, then 1 po qd x 4 days AZITHROMYCIN 250 MG TABS 413394 AZITHROMYCIN Inactiv e PREDNISONE 20 MG TAB 2 tabs daily for 3 days, 1 t ab daily for 3 days, 1/2 tab daily for 2 days PREDNISONE 20 MG TAB 378521 PREDNISON E Inactive CEFDINIR 300 MG CAPS by mouth twice a day CEFDINIR 300 MG CAPS 382632 CEFDINIR Inactive TRIAMCINOLONE ACETONIDE 0.1 % OINT Apply to affected a reas TID for up to 2 weeks TRIAMCINOLONE ACETONIDE 0.1 % OINT 857975 6 TRIAMCINOLONE ACETONIDE Inactive PREDNISONE 20 MG TAB 2 tabs daily for 3 days, 1 t ab daily for 3 days, 1/2 tab daily for 2 days PREDNISONE 20 MG TAB 199357 PREDNISON E Inactive BACTRIM DS 800-160 MG TABS 1 po BID x 7 days 0 BACTRIM DS 800-160 MG TABS 990712 SULFAMETHOXAZOLE-TRIMETHOPRIM Inactive CIPRO 500 MG TAB 1 tablet by mouth twice daily CIPRO 500 MG TAB 895448 CIPROFLOXACIN HCL Inactive AZITHROMYCIN 250 MG TABS 2 po qd x 1 day, then 1 po qd x 4 days AZITHROMYCIN 250 MG TABS 319283 AZITHROMYCIN Inactiv e FLAGYL 500 MG TAB 1 tablet by mouth bid FLAGYL 500 MG TAB 092261 METRONIDAZOLE Inactive AZITHROMYCIN 250 MG TABS 2 po qd x 1 day, then 1 po qd x 4 days AZITHROMYCIN 250 MG TABS 943113 AZITHROMYCIN Inactiv e AMOXICILLIN 500 MG ORAL CAPS 2 po BID x 10 days 09/12 AMOXICILLIN 500 MG ORAL CAPS 616969 AMOXICILLIN Inactive Immunizations Vaccine Administration Date Value [...] PANEL - Chemistry cholesterol, serum 192 mg/dL 324-350 0307/02/20 HDL cholesterol, serum 31 mg/dL > OR [...] 11 .0-15.0 platelet count 218 THOUSAND/UL 10*3/mm3 461-416 0001/02/20 mean platelet volume 9.7 fL 7.5-12.5 Encounters Code Encounter Date Provider Facility CPT-08479 Level 3 Est. Patient 13:05:44 CDT Paul Hamlin MD [facility] CPT-43328 Level 3 Est. Patient 11:29:55 CDT Checo Conklin MD [facility] CPT-30863 Level 4 Est. Patient 11:08:12 DIAL REFINISHER Checo Conklin MD [facility] CPT-96124 Level 4 Est. Patient 16:06:48 DIAL REFINISHER Checo Conklin MD [facility] CPT-48195 Level 3 Est. Patient 09:11:49 CDT Efren almendarez APRN [facility] CPT-15622 Level 2 Est. Patient 19:53:27 CDT Tanner hill MD [facility] CPT-86243 Level 3 Est. Patient 09:15:34 CDT Efren almendarez [facility] CPT-99137 Level 3 Est. Patient 11:28:51 DIAL REFINISHER Efren almendarez [facility] CPT-26954 Level 4 Est. Patient 13:55:46 DIAL REFINISHER Checo Conklin MD [facility] CPT-73206 Level 4 Est. Patient 17:10:53 CDT Checo Conklin MD [facility] CPT-71617 Level 3 Est. Patient 15:56:22 CDT Checo Conklin MD [facility] CPT-83273 Level 3 Est. Patient 15:29:07 CDT Checo Conklin MD [facility] CPT-41555 Level 3 Est. Patient 14:38:41 CDT Checo Conklin MD [facility] CPT-44119 Level 3 Est. Patient 15:22:03 DIAL REFINISHER Thomas reynolds DO [facility] CPT-43996 Level 3 Est. Patient 13:34:17 DIAL REFINISHER Checo Conklin MD [facility]-46097 Level 3 Est. Patient 12:29:32 CDT Dangelo arroyo MD [facility]-91948 Level 3 Est. Patient 16:53:02 CDT Checo Conklin MD [facility] CPT-75980 Level 3 Est. Patient 16:37:13 CDT Checo Conklin MD [facility] CPT-19145 Level 3 Est. Patient 16:16:59 CDT Paul Hamlin MD [facility]-40126 Level 3 Est. Patient 14:20:13 CDT Dangelo arroyo MD [facility]-49268 Level 4 Est. Patient 11:29:33 CDT Checo Conklin MD [facility] CPT-45067 Level 3 Est. Patient 17:08:31 CDT Checo Conklin MD [facility] CPT-60558 Level 3 Est. Patient 16:50:42 DIAL REFINISHER Checo Conklin MD [facility] CPT-94836 Level 4 Est. Patient 09:26:08 DIAL REFINISHER Checo Conklin MD [facility] CPT-80118 Level 3 Est. Patient 11:37:10 CDT Checo Conklin MD [facility] CPT-33952 Level 4 Est. Patient 14:07:38 CDT Checo Conklin MD [facility] CPT-25256 Level 3 Est. Patient 09:54:41 CDT Checo Conklin MD [facility] CPT-31351 Level 3 Est. Patient 11:10:54 CDT Paul Hamlin MD [facility] CPT-70633 Level 3 Est. Patient 14:16:56 DIAL REFINISHER Checo Conklin MD [facility] CPT-88268 Level 3 Est. Patient 11:04:11 DIAL REFINISHER Checo Conklin MD [facility] CPT-34946 Level 3 Est. Patient 17:09:26 CDT Dangelo arroyo MD [facility] CPT-86146 Level 3 Est. Patient 16:54:37 CDT Checo Conklin MD [facility] Procedures Code Procedure Name Date Entry Date Standard Desc ription CPT-34749 UA w micro - LAB USE ONLY 17:06:46 CDT 2015 CPT-67855 [facility] Qual - LAB USE ONLY 17:06:46 CDT 05/06 CPT-47146 CMP - LAB USE ONLY 17:06:46 CDT CPT-31606 CBC with Diff - LAB USE ONLY 17:06:45 CDT 2 CPT-08157 Venipuncture Draw Fee 17:06:45 CDT CPT-LR Lesion Removal 19:53:27 CDT CPT-OV Office Visit 11:31:28 CDT CPT-50722 Tubersol 09:39:29 CDT CPT-J2550 Phenergan 25 mg (Promethazine) 13:59:02 DIAL REFINISHER CPT-J1885 Toradol 60 mg (Ketorolac) 13:59:02 DIAL REFINISHER 2012
--- OUTSIDE RECORDS SUMMARY | 2019-09-29 02:05 | XMS REPORT | Clinical Summary ---
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 Abdominal pain, generalized Nausea 787.02 Active Efren [...] TABLET 1.5 po qd PAR OXETINE HCL 94256503021 Active Checo Conklin MD Active FLUTICASONE PROPIONATE 50 MCG/ACT NASAL SUSPENSION 2 s prays/nostril qd PRN Congestion/Allergies FLUTICASONE PROPIONATE 4954106336 9 No Longer Active Checo Conklin MD Active AMOXICILLIN 500 MG ORAL CAPSULE 2 po BID x 10 days 201 01/15/27 AMOXICILLIN 58785422863 No Longer Active Checo Conklin MD Activ e MIRALAX ORAL POWDER 8.5 to 17g po qd PRN Constipation POLYETHYLENE GLYCOL 3350 40115529891 Active Checo Conklin MD Active CLARITIN 10 MG ORAL TABLET 1 tablet by mouth daily as needed for allergies LORATADINE 84103440168 No Longer Active Checo Ortiz MD Active BACTRIM DS 800-160 MG ORAL TABLET 1 tab by mouth twice daily 201 12/19/26 TRIMETHOPRIM-SULFAMETHOXAZOLE 93248637384 No Longer Active Ragini Carrillo MD Active DIFLUCAN 150 MG ORAL TABLET 1 tablet by mouth qod 2015 FLUCONAZOLE 16846243168 No Longer Active 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 DEXMETHYLPHENIDATE HCL 44745078979 Active Checo Conklin MD Active MAGNESIUM CITRATE 1.745 GM/30ML ORAL SOLUTION 150ml po BID P RN Constipation MAGNESIUM CITRATE 27072151815 No Longer Active Checo Conklin MD Active BACTROBAN 2 % EXTERNAL CREAM Apply to affected area BID for up to 10 days MUPIROCIN CALCIUM 06037156687 No Longer Active Checo Conklin MD Active HYDROCODONE-ACETAMINOPHEN 5-325 MG ORAL TABLET 1 tab b y mouth every 6 hours as needed HYDROCODONE-ACETAMINOPHEN 61783562902 No Longer Active Checo Conklin MD Active IBUPROFEN 800 MG ORAL TABLET 1 tab every 8 hours with food 03/20 IBUPROFEN 67122680111 No Longer Active Checo Conklin MD Active DIFLUCAN 150 MG ORAL TABLET 1 tablet by mouth if neede d, hold until symptoms start FLUCONAZOLE 08057345509 No Longer Active Checo Conklin MD Active BACTRIM DS 800-160 MG ORAL TABLET 1 tab by mouth twice daily 201 11/23/03 TRIMETHOPRIM-SULFAMETHOXAZOLE 90471611097 No Longer Active Bonnie Méndez LPN Active HYDROCODONE-ACETAMINOPHEN 5-325 MG ORAL TABLET 0.5 to 1 tab by mouth every 6 hours as needed HYDROCODONE-ACETAMINOPHEN 16110420328 No Longer Active Checo Conklin MD Active ONDANSETRON 8 MG ORAL TABLET DISINTEGRATING place one tablet on tongue and allow to dissolve every 6 hours as needed for vomitting ONDANSETRON 42643065292 No Longer Active Checo Conklin MD Activ e COMPRO 25 MG RECTAL SUPPOSITORY insert or apply one garza ppository rectally as directed every 12 hours as needed for nausea PROCHLORPERAZINE 94747347842 No Longer Active Checo Conklin MD A ctive SUMATRIPTAN SUCCINATE 100 MG ORAL TABLET Take one PRN for migran e SUMATRIPTAN SUCCINATE 75821045798 No Longer Active Checo Conklin MD Active TRAVEL SICKNESS 25 MG ORAL TABLET CHEWABLE chew and sw allow one tablet every 6 hours as needed MECLIZINE HCL 66877917688 No Longer A ctive Checo Conklin MD Active BUPROPION HCL ER (SR) 100 MG ORAL TABLET EXTENDED RELE ASE 12 HOUR take one tablet by mouth one time daily for one week then take 1 two times daily BUPROPION HCL 73304590261 No Longer Active Checo gallagher MD Active TERBINAFINE HCL 250 MG ORAL TABLET take one table PO one time da moises TERBINAFINE HCL 62603115990 No Longer Active Checo Conklin MD Active METOCLOPRAMIDE HCL 10 MG ORAL TABLET take one PO tid PRN nausea METOCLOPRAMIDE HCL 98179559227 No Longer Active Checo Conklin MD Active DICLOFENAC SODIUM 75 MG ORAL TABLET DELAYED RELEASE 1 tablet by mouth twice daily PRN Knee pain DICLOFENAC SODIUM 05408196534 No Longer Active Checo Conklin MD Active LAMISIL 250 MG ORAL TABLET 1 po qd TERBINAFI NE HCL 55655273594 No Longer Active Checo Conklin MD Active REGLAN 10 MG ORAL TABLET 1 po TID PRN Nausea 3 METOCLOPRAMIDE HCL 83761184273 No Longer Active Checo Conklin MD Active CELEXA 20 MG ORAL TABLET 1 tablet by mouth daily 09/26 CITALOPRAM HYDROBROMIDE 38435834199 No Longer Active Checo Conklin MD Active AZITHROMYCIN 250 MG ORAL TABLET 2 po qd x 1 day, then 1 po q d x 4 days AZITHROMYCIN 19717711800 No Longer Active Checo Ortiz MD Active HYDROCODONE-ACETAMINOPHEN 5-325 MG ORAL TABLET 1 po q 6hr PRN Pa in HYDROCODONE-ACETAMINOPHEN 25332793548 No Longer Active Lenora Conklin MD Active PHENAZOPYRIDINE HCL 200 MG ORAL TABLET take 1 tab po TID for bladder pain PHENAZOPYRIDINE HCL 27768242606 No Longer Active Joe Conklin MD Active CIPRO 500 MG ORAL TABLET 1 tablet by mouth twice daily CIPROFLOXACIN HCL 22989285955 No Longer Active Dangelo Rangel MD Active HYDROCODONE-ACETAMINOPHEN 5-325 MG ORAL TABLET 1/2 to 1 po q 4 hours prn cough HYDROCODONE-ACETAMINOPHEN 17482304173 No Longer Activ e Dangelo Rangel MD Active BACTRIM DS 800-160 MG ORAL TABLET 1 po BID x 7 days 29/04/10 SULFAMETHOXAZOLE-TRIMETHOPRIM 69064659986 No Longer Active Checo Conklin MD Active PREDNISONE 20 MG ORAL TABLET 2 tabs daily for 3 days, 1 tab daily for 3 days, 1/2 tab daily for 2 days PREDNISONE 95509854942 No Longer Active Checo Conklin MD Active TRIAMCINOLONE ACETONIDE 0.1 % EXTERNAL OINTMENT Apply to affected areas TID for up to 2 weeks TRIAMCINOLONE ACETONIDE 31726242534 No Longer Active Checo Conklin MD Active CEFDINIR 300 MG ORAL CAPSULE by mouth twice a day 2013 CEFDINIR 35499002396 No Longer Active Dangelo Rangel MD Acti ve BUPROPION HCL ER (SMOKING DET) 150 MG ORAL TABLET EXTE NDED RELEASE 12 HOUR 1 a day for 1 week then 1 twice a day BUPROPION HCL (SMOKING DETER) 12950175768 No Longer Active Checo Conklin MD Active SIMVASTATIN 20 MG ORAL TABLET 1 po qd SIMVASTAT IN 93422835092 Active Checo Conklin MD Active CHANTIX STARTING MONTH KARTHIK 0.5 MG X 11 & 1 MG X 42 ORA L TABLET 0.5mg daily for 3 days, then 0.5mg BID for 4 days, then 1mg BID VARENICLINE TARTRATE 04755857969 No Longer Active Checo Conklin MD Activ e XANAX 0.5 MG ORAL TABLET 1 po BID PRN anxiety A LPRAZOLAM 87791728153 Active Checo Conklin MD Active CONCERTA 18 MG ORAL TABLET EXTENDED RELEASE 1 po q a.m. METHYLPHENIDATE HCL 70369084378 No Longer Active Checo Conklin MD Active AMBIEN 5 MG ORAL TABLET 1 po qHS PRN Insomnia Z OLPIDEM TARTRATE 07187684935 Active Checo Conklin MD Active TRAZODONE HCL 100 MG ORAL TABLET 0.5 to 1 po qHS PRN Insomnia 20 30/07/08 TRAZODONE HCL 95966066949 No Longer Active Checo Conklin MD Active FIORICET 325-50-40 MG TAB 1 tablet by mouth four times daily as needed [id number] 07394406140 No Longer Active Checo Conklin MD Active PHENERGAN CREAM* 25mg applied to wrist q6hr PRN Nausea PHENERGAN CREAM* No Longer Active Checo Gonzales ctive FLONASE 50 MCG/ACT NASAL SUSPENSION 1 spray each nostril am and hs FLUTICASONE PROPIONATE 66766156002 No Longer Active Checo Conklin MD Active ANTIPYRINE-BENZOCAINE 5.4-1.4 % OTIC SOLUTION 1-2 drops in affec yohannes ear BENZOCAINE-ANTIPYRINE 78877296093 No Longer Active Checo Conklin MD Active CEFDINIR 300 MG ORAL CAPSULE 1 po bid CEFDINIR 23757530710 No Longer Active Checo Conklin MD Active PREDNISONE 20 MG ORAL TABLET 2 tabs daily for 3 days, 1 tab daily for 3 days, 1/2 tab daily for 2 days PREDNISONE 29618872087 No Longer Active Checo Conklin MD Active AZITHROMYCIN 250 MG ORAL TABLET 2 po qd x 1 day, then 1 po q d x 4 days AZITHROMYCIN 16283720946 No Longer Active Checo Ortiz MD Active PREDNISONE 20 MG ORAL TABLET 2 tabs daily for 3 days, 1 tab daily for 3 days, 1/2 tab daily for 2 days PREDNISONE 82829251089 No Longer Active Checo Conklin MD Active ZITHROMAX Z-KARTHIK 250 MG ORAL TABLET 2 today, then 1 daily for 4 d ays AZITHROMYCIN 90162156554 No Longer Active Paul Hamlin MD Active FOCALIN XR 10 MG ORAL CAPSULE EXTENDED RELEASE 24 HOUR 1 po q a. m. DEXMETHYLPHENIDATE HCL 32486325736 No Longer Active Paul Hamlin MD Active PERCOCET 10-325 MG ORAL TABLET 1 tablet every 6 hours as needed for pain OXYCODONE-ACETAMINOPHEN 01872589980 No Longer Active Paul Hamlin MD Active LORTAB 5-500 MG ORAL TABLET 1/2 to 1 tablet by mouth e very 4 hours as needed for pain HYDROCODONE-ACETAMINOPHEN 61707511695 No Longer Active Checo Conklin MD Active FOCALIN XR 15 MG ORAL CAPSULE EXTENDED RELEASE 24 HOUR 1 po q a. m. DEXMETHYLPHENIDATE HCL 19340539801 No Longer Active Checo Conklin MD Active ZOFRAN ODT 4 MG ORAL TABLET DISINTEGRATING 1 po q6hr PRN Nausea ONDANSETRON 58389454454 No Longer Active Checo Conklin MD Active PERCOCET 5-325 MG ORAL TABLET 1 tablet by mouth every 6 hour s as needed OXYCODONE-ACETAMINOPHEN 44786944168 No Longer Active Checo Conklin MD Active PYRIDIUM 200 MG ORAL TABLET take 1 tab po TID prn urinary pain. PHENAZOPYRIDINE HCL 20622628228 No Longer Active Checo Joshua Active FLUCONAZOLE 150 MG ORAL TABLET take 1 tab po qday once FLUCONAZOLE 04287819287 No Longer Active Dangelo Rangel MD Acti ve CIPRO 500 MG ORAL TABLET 1 tablet by mouth twice daily CIPROFLOXACIN HCL 37677584177 No Longer Active Dangelo Rangel MD Active PYRIDIUM 200 MG ORAL TABLET take 1 tab po TID prn urinary pain. PYRIDIUM 200 MG ORAL TABLET 0733975 PHENAZOPYRIDINE HCL Inactive PERCOCET 5-325 MG ORAL TABLET 1 tablet by mouth every 6 hour s as needed PERCOCET 5-325 MG ORAL TABLET 7459021 OXYCODONE-ACETAMINOPHEN Inactive ZOFRAN ODT 4 MG ORAL TABLET DISINTEGRATING 1 po q6hr PRN Nausea ZOFRAN ODT 4 MG ORAL TABLET DISINTEGRATING 623427 ONDAN SETRON Inactive FOCALIN XR 15 MG ORAL CAPSULE EXTENDED RELEASE 24 HOUR 1 po q a. m. FOCALIN XR 15 MG ORAL CAPSULE EXTENDED RELEASE 24 HOUR DEXMETHYLPHENIDATE HCL Inactive LORTAB 5-500 MG ORAL TABLET 1/2 to 1 tablet by mouth e very 4 hours as needed for pain LORTAB 5-500 MG ORAL TABLET 412472 HYDROCODONE-ACETAMINOPHEN Inactive PERCOCET 10-325 MG ORAL TABLET 1 tablet every 6 hours as needed for pain PERCOCET 10-325 MG ORAL TABLET 6236309 OXYCODONE-ACETAMI NOPHEN Inactive FOCALIN XR 10 MG ORAL CAPSULE EXTENDED RELEASE 24 HOUR 1 po q a. m. FOCALIN XR 10 MG ORAL CAPSULE EXTENDED RELEASE 24 HOUR DEXMETHYLPHENIDATE HCL Inactive CEFDINIR 300 MG ORAL CAPSULE 1 po bid CEFDINI R 300 MG ORAL CAPSULE 467160 CEFDINIR Inactive ANTIPYRINE-BENZOCAINE 5.4-1.4 % OTIC SOLUTION 1-2 drops in affec yohannes ear ANTIPYRINE-BENZOCAINE 5.4-1.4 % OTIC SOLUTION 622690 BENZOCAINE-ANTIPYRINE Inactive FLONASE 50 MCG/ACT NASAL SUSPENSION 1 spray each nostril am and hs FLONASE 50 MCG/ACT NASAL SUSPENSION 2361532 FLUTICASONE PROPIONATE I nactive PHENERGAN CREAM* 25mg applied to wrist q6hr PRN Nausea PHENERGAN CREAM* Inactive FIORICET 325-50-40 MG TAB 1 tablet by mouth four times daily as needed FIORICET 325-50-40 MG TAB ACETAMINOPHEN-C AFF-BUTALBITAL Inactive TRAZODONE HCL 100 MG ORAL TABLET 0.5 to 1 po qHS PRN Insomnia 20 30/07/08 TRAZODONE HCL 100 MG ORAL TABLET 496583 TRAZODONE HCL Inactive CONCERTA 18 MG ORAL [...] cough HYDROCODONE-ACETAMINOPHEN 5-325 MG ORAL TABLET 8 05232 HYDROCODONE-ACETAMINOPHEN Inactive PHENAZOPYRIDINE HCL 200 MG ORAL TABLET take 1 tab po TID for bladder pain PHENAZOPYRIDINE HCL 200 MG ORAL TABLET 5033279 PHENAZOPYRIDINE HCL Inactive HYDROCODONE-ACETAMINOPHEN 5-325 MG ORAL TABLET 1 po q 6hr PRN Pa in HYDROCODONE-ACETAMINOPHEN 5-325 MG ORAL TABLET 613822 HYDROCODONE-ACETAMINOPHEN Inactive CELEXA 20 MG ORAL TABLET 1 tablet by mouth daily 09/26 CELEXA 20 MG ORAL TABLET 303514 CITALOPRAM HYDROBROMIDE Inactive REGLAN 10 MG ORAL TABLET 1 po TID PRN Nausea 3 REGLAN 10 MG ORAL TABLET 742509 METOCLOPRAMIDE HCL Inactive LAMISIL 250 MG ORAL TABLET 1 po qd L AMISIL 250 MG ORAL TABLET 029253 TERBINAFINE HCL Inactive DICLOFENAC SODIUM 75 MG ORAL TABLET DELAYED RELEASE 1 tablet by mouth twice daily PRN Knee pain DICLOFENAC SODIUM 75 MG ORAL TABLET DELAYED RELEASE 450350 DICLOFENAC SODIUM Inactive METOCLOPRAMIDE HCL 10 MG ORAL TABLET take one PO tid PRN nausea METOCLOPRAMIDE HCL 10 MG ORAL TABLET 659958 METOCLOPRAM ZACH HCL Inactive TERBINAFINE HCL 250 MG ORAL TABLET take one table PO one time da moises TERBINAFINE HCL 250 MG ORAL TABLET 299451 TERBINAFINE H CL Inactive BUPROPION HCL ER [...] SICKNESS 25 M G ORAL TABLET CHEWABLE 029966 MECLIZINE HCL Inactive SUMATRIPTAN SUCCINATE 100 MG ORAL TABLET Take one PRN for migran e SUMATRIPTAN SUCCINATE 100 MG ORAL TABLET 231979 SUMATRIPTAN SUCCINATE Inactive COMPRO 25 MG RECTAL SUPPOSITORY insert or apply one garza ppository rectally as directed every 12 hours as needed for nausea COMPRO 25 MG RECTAL SUPPOSITORY 718076 PROCHLORPERAZINE Inactive ONDANSETRON 8 MG ORAL TABLET DISINTEGRATING place one tablet on tongue and allow to dissolve every 6 hours as needed for vomitting ONDANSETRON 8 MG ORAL TABLET DISINTEGRATING 097134 ONDANSETRON Inactive HYDROCODONE-ACETAMINOPHEN 5-325 MG ORAL TABLET 0.5 to 1 tab by mouth every 6 hours as needed HYDROCODONE-ACETAMIN OPHEN 5-325 MG ORAL TABLET 846621 HYDROCODONE-ACETAMINOPHEN Inactive BACTRIM DS 800-160 MG ORAL TABLET 1 tab by mouth twice daily 201 11/23/03 BACTRIM DS 800-160 MG ORAL TABLET 275738 TRIMETHOPRIM-SULFAMETHOXAZOLE Inactive DIFLUCAN 150 MG ORAL TABLET 1 tablet by mouth if neede d, hold until symptoms start DIFLUCAN 150 MG ORAL TABLET 507020 FLUCONAZ OLE Inactive IBUPROFEN 800 MG ORAL TABLET 1 tab every 8 hours with food 03/20 IBUPROFEN 800 MG ORAL TABLET 248104 IBUPROFEN Collins ctive HYDROCODONE-ACETAMINOPHEN 5-325 MG ORAL TABLET 1 tab b y mouth every 6 hours as needed HYDROCODONE-ACETAMINOPHEN 5-325 MG ORAL TABLET 568831 HYDROCODONE-ACETAMINOPHEN Inactive BACTROBAN 2 % EXTERNAL CREAM Apply to affected area BID for up to 10 days BACTROBAN 2 % EXTERNAL CREAM 497330 MUPIROCIN CA LCIUM Inactive MAGNESIUM CITRATE 1.745 GM/30ML ORAL SOLUTION 150ml po BID P RN Constipation MAGNESIUM CITRATE 1.745 GM/30ML ORAL SOLUTION 10 59347 MAGNESIUM CITRATE Inactive DIFLUCAN 150 MG ORAL TABLET 1 tablet by mouth qod 2015 DIFLUCAN 150 MG ORAL TABLET 096970 FLUCONAZOLE Inactive BACTRIM DS 800-160 MG ORAL TABLET 1 tab by mouth twice daily 201 12/19/26 BACTRIM DS 800-160 MG ORAL TABLET 839030 TRIMETHOPRIM-SULFAMETHOXAZOLE Inactive CLARITIN 10 MG ORAL TABLET 1 tablet by mouth daily as needed for allergies CLARITIN 10 MG ORAL TABLET 924984 LORATADINE I nactive FLUTICASONE PROPIONATE 50 MCG/ACT NASAL SUSPENSION 2 s prays/nostril qd PRN Congestion/Allergies FLUTICASONE PROPION ATE 50 MCG/ACT NASAL SUSPENSION 7099778 FLUTICASONE PROPIONATE Inactive CIPRO 500 MG ORAL TABLET 1 tablet by mouth twice daily CIPRO 500 MG ORAL TABLET 956037 CIPROFLOXACIN HCL Inactive FLUCONAZOLE 150 MG ORAL TABLET take 1 tab po qday once FLUCONAZOLE 150 MG ORAL TABLET 736389 FLUCONAZOLE Inactive ZITHROMAX Z-KARTHIK 250 MG ORAL TABLET 2 today, then 1 daily for 4 d ays ZITHROMAX Z-KARTHIK 250 MG ORAL TABLET 974608 AZITHROMYCIN Inactive PREDNISONE 20 MG ORAL TABLET 2 tabs daily for 3 days, 1 tab daily for 3 days, 1/2 tab daily for 2 days PREDNISONE 20 MG ORAL T ABLET 548272 PREDNISONE Inactive AZITHROMYCIN 250 MG ORAL TABLET 2 po qd x 1 day, then 1 po q d x 4 days AZITHROMYCIN 250 MG ORAL TABLET 491209 AZITHROMY SPARKLE Inactive PREDNISONE 20 MG ORAL TABLET 2 tabs daily for 3 days, 1 tab daily for 3 days, 1/2 tab daily for 2 days PREDNISONE 20 MG ORAL TABLET 941743 PREDNISONE Inactive CEFDINIR 300 MG ORAL CAPSULE by mouth twice a day 2013 CEFDINIR 300 MG ORAL CAPSULE 430424 CEFDINIR Inactive TRIAMCINOLONE ACETONIDE 0.1 % EXTERNAL OINTMENT Apply to affected areas TID for up to 2 weeks TRIAMCINOLONE ACETON ZACH 0.1 % EXTERNAL OINTMENT 2658647 TRIAMCINOLONE ACETONIDE Inactive PREDNISONE 20 MG ORAL TABLET 2 tabs daily for 3 days, 1 tab daily for 3 days, 1/2 tab daily for 2 days PREDNISONE 20 MG ORAL T ABLET 938028 PREDNISONE Inactive BACTRIM DS 800-160 MG ORAL TABLET 1 po BID x 7 days 29/04/10 BACTRIM DS 800-160 MG ORAL TABLET 249667 SULFAMETHOXAZOLE-TRIMETHOP RIM Inactive CIPRO 500 MG ORAL TABLET 1 tablet by mouth twice daily CIPRO 500 MG ORAL TABLET 965526 CIPROFLOXACIN HCL Inactive AZITHROMYCIN 250 MG ORAL TABLET 2 po qd x 1 day, then 1 po q d x 4 days AZITHROMYCIN 250 MG ORAL TABLET 059545 AZITHROMY SPARKLE Inactive FLAGYL 500 MG ORAL TABLET 1 tablet by mouth bid 04/13 FLAGYL 500 MG ORAL TABLET 158061 METRONIDAZOLE Inactive AZITHROMYCIN 250 MG ORAL TABLET 2 po qd x 1 day, then 1 po q d x 4 days AZITHROMYCIN 250 MG ORAL TABLET 264174 AZITHROMY SPARKLE Inactive AMOXICILLIN 500 MG ORAL CAPSULE 2 po BID x 10 days 201 01/15/27 AMOXICILLIN 500 MG ORAL CAPSULE 421309 AMOXICILLIN Inactive Immunizations Vaccine Administration Date Value [...] PANEL - Chemistry cholesterol, serum 192 mg/dL 444-126 6957/02/20 HDL cholesterol, serum 31 mg/dL > OR [...] 11 .0-15.0 platelet count 218 THOUSAND/UL 10*3/mm3 359-942 8901/02/20 mean platelet volume 9.7 fL 7.5-12.5 Encounters Code Encounter Date Provider Facility CPT-93674 Level 3 Est. Patient 11:24:55 [employer] Efren almendarez APRN [facility] CPT-93708 Level 3 Est. Patient 13:05:44 CDT Paul Hamlin MD [facility] CPT-22699 Level 3 Est. Patient 11:29:55 CDT Checo Conklin MD [facility] CPT-84070 Level 4 Est. Patient 11:08:12 [employer] Checo Conklin MD [facility] CPT-43908 Level 4 Est. Patient 16:06:48 [employer] Checo Conklin MD [facility] CPT-70522 Level 3 Est. Patient 09:11:49 CDT Efren Nicolas almendarez [facility] CPT-98294 Level 2 Est. Patient 19:53:27 CDT Tanner hill MD [facility] CPT-35632 Level 3 Est. Patient 09:15:34 CDT Efren Nicolas almendarez [facility] CPT-15783 Level 3 Est. Patient 11:28:51 [employer] Efren Nicolas erickson [facility] CPT-73584 Level 4 Est. Patient 13:55:46 [employer] Checo Conklin MD [facility] CPT-62607 Level 4 Est. Patient 17:10:53 CDT Checo Conklin MD [facility] CPT-48978 Level 3 Est. Patient 15:56:22 CDT Checo Conklin MD [facility] CPT-46479 Level 3 Est. Patient 15:29:07 CDT Checo Conklin MD [facility] CPT-81802 Level 3 Est. Patient 14:38:41 CDT Checo Conklin MD [facility] CPT-25016 Level 3 Est. Patient 15:22:03 [employer] Thomas reynolds DO [facility] CPT-92731 Level 3 Est. Patient 13:34:17 [employer] Checo Conklin MD [facility] CPT-72354 Level 3 Est. Patient 12:29:32 CDT Dangelo arroyo MD [facility] CPT-51557 Level 3 Est. Patient 16:53:02 CDT Checo Conklin MD [facility] CPT-87202 Level 3 Est. Patient 16:37:13 CDT Checo Conklin MD [facility] CPT-63546 Level 3 Est. Patient 16:16:59 CDT Paul Hamlin MD [facility] CPT-52941 Level 3 Est. Patient 14:20:13 CDT Dangelo arroyo MD [facility] CPT-93479 Level 4 Est. Patient 11:29:33 CDT Checo Conklin MD [facility] CPT-98274 Level 3 Est. Patient 17:08:31 CDT Checo Conklin MD [facility] CPT-85771 Level 3 Est. Patient 16:50:42 [employer] Checo Conklin MD [facility] CPT-47666 Level 4 Est. Patient 09:26:08 [employer] Checo Conklin MD [facility] CPT-26880 Level 3 Est. Patient 11:37:10 CDT Checo Conklin MD [facility] CPT-25575 Level 4 Est. Patient 14:07:38 CDT Checo Conklin MD [facility] CPT-20740 Level 3 Est. Patient 09:54:41 CDT Checo Conklin MD [facility] CPT-76631 Level 3 Est. Patient 11:10:54 CDT Paul Hamlin MD [facility] CPT-96044 Level 3 Est. Patient 14:16:56 [employer] Checo Conklin MD [facility] CPT-90712 Level 3 Est. Patient 11:04:11 [employer] Checo Conklin MD [facility] CPT-53313 Level 3 Est. Patient 17:09:26 CDT Dangelo arroyo MD [facility] CPT-67723 Level 3 Est. Patient 16:54:37 CDT Checo Conklin MD [facility] Procedures Code Procedure Name Date Entry Date Standard Desc ription CPT-93940 Abd compl w upright - XRAY USE ONLY 1 1:36:54 [employer] CPT-17927 UA w micro - LAB USE ONLY 17:06:46 CDT 2015 CPT-75490 [facility] Qual - LAB USE ONLY 17:06:46 CDT 05/06 CPT-38710 CMP - LAB USE ONLY 17:06:46 CDT CPT-32295 CBC with Diff - LAB USE ONLY 17:06:45 CDT 2 CPT-47398 Venipuncture Draw Fee 17:06:45 CDT CPT-LR Lesion Removal 19:53:27 CDT CPT-OV Office Visit 11:31:28 CDT CPT-38126 Tubersol 09:39:29 CDT CPT-J2550 Phenergan 25 mg (Promethazine) 13:59:02 [employer] CPT-J1885 Toradol 60 mg (Ketorolac) 13:59:02 [employer] 2012
--- OUTSIDE RECORDS SUMMARY | 2019-09-29 02:06 | XMS REPORT | Clinical Summary ---
Author Author Admin, Bethany Ayala [facility] Address Unknown Phone Unavailable Allergies, Adverse [...] 1 tablet by mouth qod FLUCONA ZOLE [id number] Active Jillina Frazell IMPORT COORDINATOR Active CLARITIN 10 MG TAB 1 tablet by mouth daily as needed for allergies LORATADINE 66449130798 Active Jillina Frazell IMPORT COORDINATOR Active AZITHROMYCIN 250 MG TABS 2 po qd x 1 day, then 1 po qd x 4 days AZITHROMYCIN 67950959945 No Longer Active Jillina Frazell IMPORT COORDINATOR Active FLAGYL 500 MG TAB 1 tablet by mouth bid METRONI DAZOLE 49779370894 No Longer Active Checo Conklin MD Active FOCALIN XR 10 MG ORAL [id number] 1 po q a.m. DEX METHYLPHENIDATE HCL 77857826754 Active Checo Conklin MD Active MAGNESIUM CITRATE 1.745 GM/30ML ORAL SOLN 150ml po BID PRN C onstipation MAGNESIUM CITRATE 84882183414 No Longer Active Checo Conklin MD Active BACTROBAN 2 % CREAM Apply to affected area BID for up to 10 days MUPIROCIN CALCIUM 90543076256 No Longer Active Checo Conklin MD Active HYDROCODONE-ACETAMINOPHEN 5-325 MG TABS 1 tab by mouth every 6 hours as needed HYDROCODONE-ACETAMINOPHEN 94997490157 No Longer Activ e Checo Conklin MD Active IBUPROFEN 800 MG TABS 1 tab every 8 hours with food 31/03/21 IBUPROFEN 92555343447 No Longer Active Checo Conklin MD Activ e DIFLUCAN 150 MG TAB 1 tablet by mouth if needed, hold until symptoms start FLUCONAZOLE 51246325056 No Longer Active Checo Ortiz MD Active BACTRIM DS 800-160 MG TAB 1 tab by mouth twice daily 2 TRIMETHOPRIM-SULFAMETHOXAZOLE 27886644833 No Longer Active Corry leong LPN Active MIRALAX PACK 1 po qd PRN Constipation POLYETHYL JOEL GLYCOL 3350 54185908865 Active Checo Conklin MD Active HYDROCODONE-ACETAMINOPHEN 5-325 MG TABS 0.5 to 1 tab b y mouth every 6 hours as needed HYDROCODONE-ACETAMINOPHEN 80347272008 No Longer Active Checo Conklin MD Active ONDANSETRON [address] one tablet on tongue and allow to dissolve every 6 hours as needed for vomitting ONDANSETRO N 42274945904 No Longer Active Checo Conklin MD Active COMPRO 25 MG RECTAL SUPP insert or apply one supposit ory rectally as directed every 12 hours as needed for nausea PROCHLORPERA ZINE 22835156814 No Longer Active Checo Conklin MD Active SUMATRIPTAN SUCCINATE 100 MG ORAL TABS Take one PRN for migrane SUMATRIPTAN SUCCINATE 16556215595 No Longer Active Checo Conklin MD Active TRAVEL SICKNESS 25 MG ORAL CHEW chew and swallow one t ablet every 6 hours as needed MECLIZINE HCL 97067292882 No Longer Active Joe Conklin MD Active BUPROPION HCL ER (SR) 100 MG ORAL [id number] take one t ablet by mouth one time daily for one week then take 1 two times daily BUPROPION HCL 68499754954 No Longer Active Checo Conklin MD Activ e TERBINAFINE HCL 250 MG ORAL TABS take one table PO one time abran y TERBINAFINE HCL 64554867892 No Longer Active Checo Conklin MD Active METOCLOPRAMIDE HCL 10 MG ORAL TABS take one PO tid PRN nausea 20 29/12/14 METOCLOPRAMIDE HCL 07033221805 No Longer Active Checo Conklin MD Active DICLOFENAC SODIUM 75 MG TBEC 1 tablet by mouth twice daily P RN Knee pain DICLOFENAC SODIUM 01484613623 No Longer Active Checo Conklin MD Active LAMISIL 250 MG TAB 1 po qd TERBINAFINE HCL 548 07219289 No Longer Active Checo Conklin MD Active REGLAN 10 MG TAB 1 po TID PRN Nausea METOCLOPRA MIDE HCL 03105658986 No Longer Active Checo Conklin MD Active CELEXA 20 MG TABS 1 tablet by mouth daily CITALOPRAM HYDROBROMIDE 65233869973 No Longer Active Checo Conklin MD Activ e AZITHROMYCIN 250 MG TABS 2 po qd x 1 day, then 1 po qd x 4 days AZITHROMYCIN 16174490564 No Longer Active Checo Conklin MD Active HYDROCODONE-ACETAMINOPHEN 5-325 MG TABS 1 po q 6hr PRN Pain 2013 HYDROCODONE-ACETAMINOPHEN 39588858160 No Longer Active Lenora Conklin MD Active PHENAZOPYRIDINE HCL 200 MG TABS take 1 tab po TID for bladder pa in PHENAZOPYRIDINE HCL 18350875755 No Longer Active Checo Joshua Active CIPRO 500 MG TAB 1 tablet by mouth twice daily CIPROFLOXACIN HCL 13037504558 No Longer Active Dangelo Rangel MD Active HYDROCODONE-ACETAMINOPHEN 5-325 MG TABS 1/2 to 1 po q 4 hour s prn cough HYDROCODONE-ACETAMINOPHEN 46766163145 No Longer Activ e Dangelo Rangel MD Active BACTRIM DS 800-160 MG TABS 1 po BID x 7 days 0 SULFAMETHOXAZOLE-TRIMETHOPRIM 55733728799 No Longer Active Checo Conklin MD Active PREDNISONE 20 MG TAB 2 tabs daily for 3 days, 1 t ab daily for 3 days, 1/2 tab daily for 2 days PREDNISONE 94310673883 No Longer Active Checo Conklin MD Active TRIAMCINOLONE ACETONIDE 0.1 % OINT Apply to affected a reas TID for up to 2 weeks TRIAMCINOLONE ACETONIDE 70808041837 No Longer A ctive Checo Conklin MD Active CEFDINIR 300 MG CAPS by mouth twice a day CEFDI JAZZY 11121623985 No Longer Active Dangelo Rangel MD Active BUPROPION HCL (SMOKING DETER) 150 MG [id number] 1 a day for 1 week then 1 twice a day BUPROPION HCL (SMOKING DETER) 57629804338 No Lo nger Active Checo Conklin MD Active SIMVASTATIN 20 MG TABS 1 po qd SIMVASTATIN 6768652142 5 Active Checo Conklin MD Active CHANTIX STARTING MONTH KARTHIK 0.5 MG X 11 & 1 MG X 42 TAB S 0.5mg daily for 3 days, then 0.5mg BID for 4 days, then 1mg BID VARENICLINE TARTRATE 90159951703 No Longer Active Checo Conklin MD Activ e XANAX 0.5 MG TABS 1 po BID PRN anxiety ALPRAZOLAM 75025946734 Active Checo Conklin MD Active CONCERTA 18 MG CR-TABS 1 po q a.m. METHYLPHENID ATE HCL 50411607055 No Longer Active Checo Conklin MD Active AMBIEN 5 MG TAB 1 po qHS PRN Insomnia ZOLPIDEM TARTRATE 21157039726 Active Checo Conklin MD Active TRAZODONE HCL 100 MG TAB 0.5 to 1 po qHS PRN Insomnia TRAZODONE HCL 36356134282 No Longer Active Checo Conklin MD Acti ve FIORICET 325-50-40 MG TAB 1 tablet by mouth four times daily as needed [id number] 18210260536 No Longer Active Checo Conklin MD Active PHENERGAN CREAM* 25mg applied to wrist q6hr PRN Nausea PHENERGAN CREAM* No Longer Active Checo Conklin MD A ctive FLONASE 50 MCG/ACT SUSP 1 spray each nostril am and hs FLUTICASONE PROPIONATE 98742520278 No Longer Active Checo Conklin MD Activ e ANTIPYRINE-BENZOCAINE 5.4-1.4 % SOLN 1-2 drops in affected ear BENZOCAINE-ANTIPYRINE 30109965777 No Longer Active Checo Conklin MD Active CEFDINIR 300 MG CAPS 1 po bid CEFDINIR 34272588 120 No Longer Active Checo Conklin MD Active PREDNISONE 20 MG TAB 2 tabs daily for 3 days, 1 t ab daily for 3 days, 1/2 tab daily for 2 days PREDNISONE 89335303657 No Longer Active Aracelis Conklin MD Active AZITHROMYCIN 250 MG TABS 2 po qd x 1 day, then 1 po qd x 4 days AZITHROMYCIN 30637012111 No Longer Active Checo Conklin MD Active PREDNISONE 20 MG TAB 2 tabs daily for 3 days, 1 t ab daily for 3 days, 1/2 tab daily for 2 days PREDNISONE 83026630983 No Longer Active Checo Conklin MD Active ZITHROMAX Z-KARTHIK 250 MG TABS 2 today, then 1 daily for 4 days 201 09/18/28 AZITHROMYCIN 09912822649 No Longer Active Paul Hamlin MD Active FOCALIN XR 10 MG [id number] 1 po q a.m. D EXMETHYLPHENIDATE HCL 30232367297 No Longer Active Paul Hamlin MD Activ e PERCOCET 10-325 MG TABS 1 tablet every 6 hours as needed for pain OXYCODONE-ACETAMINOPHEN 55007017843 No Longer Active Paul Hamlin MD Active LORTAB 5 5-500 MG TABS 1/2 to 1 tablet by mouth flaquito ry 4 hours as needed for pain HYDROCODONE-ACETAMINOPHEN 02797363907 No Longer Active Checo Conklin MD Active FOCALIN XR 15 MG [id number] 1 po q a.m. D EXMETHYLPHENIDATE HCL 85572628884 No Longer Active Checo Conklin MD Activ e ZOFRAN ODT 4 MG TBDP 1 po q6hr PRN Nausea ONDAN SETRON 40423839948 No Longer Active Checo Conklin MD Active PERCOCET 5-325 MG TABS 1 tablet by mouth every 6 hours as needed OXYCODONE-ACETAMINOPHEN 01116170475 No Longer Active Checo Conklin MD Active PYRIDIUM 200 MG TABS take 1 tab po TID prn urinary pain. 0 PHENAZOPYRIDINE HCL 29050279448 No Longer Active Checo Conklin MD Active FLUCONAZOLE 150 MG TABS take 1 tab po qday once 04/06 FLUCONAZOLE 07244868473 No Longer Active Dangelo Rangel MD Acti ve CIPRO 500 MG TAB 1 tablet by mouth twice daily CIPROFLOXACIN HCL 50466427377 No Longer Active Dangelo Rangel MD Active PYRIDIUM 200 MG TABS take 1 tab po TID prn urinary pain. 0 PYRIDIUM 200 MG TABS 3401687 PHENAZOPYRIDINE HCL Inactive PERCOCET 5-325 MG TABS 1 tablet by mouth every 6 hours as needed PERCOCET 5-325 MG TABS 8814283 OXYCODONE-ACETAMINOPHEN I nactive ZOFRAN ODT 4 MG TBDP 1 po q6hr PRN Nausea ZOFRAN ODT 4 MG TBDP 668961 ONDANSETRON Inactive FOCALIN XR 15 MG [id number] 1 po q a.m. F OCALIN XR 15 MG [id number] DEXMETHYLPHENIDATE HCL Inactive LORTAB 5 5-500 MG TABS 1/2 to 1 tablet by mouth flaquito ry 4 hours as needed for pain LORTAB 5 5-500 MG TABS HYDROCODONE-A CETAMINOPHEN Inactive PERCOCET 10-325 MG TABS 1 tablet every 6 hours as needed for pain PERCOCET 10-325 MG TABS 3981107 OXYCODONE-ACETAMINOPHEN Inactive FOCALIN XR 10 MG [id number] 1 po q a.m. F OCALIN XR 10 MG [id number] DEXMETHYLPHENIDATE HCL Inactive CEFDINIR 300 MG CAPS 1 po bid CEFDINIR 300 MG CAPS 20 0346 CEFDINIR Inactive ANTIPYRINE-BENZOCAINE 5.4-1.4 % SOLN 1-2 drops in affected ear ANTIPYRINE-BENZOCAINE 5.4-1.4 % SOLN 702932 BENZOCAINE-ANTIPYRINE I nactive FLONASE 50 MCG/ACT SUSP [...] PRN Insomnia TRAZODONE HCL 100 MG TAB 278703 TRAZODONE HCL Inactive CONCERTA 18 MG CR-TABS [...] s prn cough HYDROCODONE-ACETAMINOPHEN 5-325 MG TABS 053254 HYDROCODONE-ACETAMINOPHEN Inactive PHENAZOPYRIDINE HCL 200 MG TABS take 1 tab po TID for bladder pa in PHENAZOPYRIDINE HCL 200 MG TABS 2047552 PHENAZOPYRIDINE HCL Inactive HYDROCODONE-ACETAMINOPHEN 5-325 MG TABS 1 po q 6hr PRN Pain 2013 HYDROCODONE-ACETAMINOPHEN 5-325 MG TABS 219586 HYDROCODONE-ACETAMINOPHEN Inactive CELEXA 20 MG TABS 1 tablet by mouth daily CELEXA 20 MG TABS 424296 CITALOPRAM HYDROBROMIDE Inactive REGLAN 10 MG TAB 1 po TID PRN Nausea REGLAN 10 MG TAB 520848 METOCLOPRAMIDE HCL Inactive LAMISIL 250 MG TAB 1 po qd LAMISIL 250 MG TAB 825865 TERBINAFINE HCL Inactive DICLOFENAC SODIUM 75 MG TBEC 1 tablet by mouth twice daily P RN Knee pain DICLOFENAC SODIUM 75 MG TBEC 245465 DICLOFENAC S ODIUM Inactive METOCLOPRAMIDE HCL 10 MG ORAL TABS take one PO tid PRN nausea 20 29/12/14 METOCLOPRAMIDE HCL 10 MG ORAL TABS 430627 METOCLOPRAMID E HCL Inactive TERBINAFINE HCL 250 MG ORAL TABS take one table PO one time abran y TERBINAFINE HCL 250 MG ORAL TABS 493540 TERBINAFINE HCL Inactive BUPROPION HCL ER (SR) 100 MG ORAL [id number] take one t ablet by mouth one time daily for one week then take 1 two times daily BUPROPION HCL ER (SR) 100 MG ORAL [id number] BUPROPION HCL Inacti ve TRAVEL SICKNESS 25 MG ORAL CHEW chew and swallow one t ablet every 6 hours as needed TRAVEL SICKNESS 25 MG ORAL CHEW 017005 MECLIZINE HCL Inactive SUMATRIPTAN SUCCINATE 100 MG ORAL TABS Take one PRN for migrane SUMATRIPTAN SUCCINATE 100 MG ORAL TABS 337279 SUMATRIPT AN SUCCINATE Inactive COMPRO 25 MG RECTAL SUPP insert or apply one supposit ory rectally as directed every 12 hours as needed for nausea COMP RO 25 MG RECTAL SUPP 616153 PROCHLORPERAZINE Inactive ONDANSETRON [address] one tablet on tongue and allow to dissolve every 6 hours as needed for vomitting ON DANSETRON 8 MG ORAL TBDP 053883 ONDANSETRON Inactive HYDROCODONE-ACETAMINOPHEN 5-325 MG TABS 0.5 to 1 tab b y mouth every 6 hours as needed HYDROCODONE-ACETAMINOPHEN 5-325 MG TABS 8 16075 HYDROCODONE-ACETAMINOPHEN Inactive BACTRIM DS 800-160 MG TAB 1 tab by mouth twice daily 2 BACTRIM DS 800-160 MG TAB 343416 TRIMETHOPRIM-SULFAMETHOXAZOLE Inac tive DIFLUCAN 150 MG TAB 1 tablet by mouth if needed, hold until symptoms start DIFLUCAN 150 MG TAB 740207 FLUCONAZOLE Inactive IBUPROFEN 800 MG TABS 1 tab every 8 hours with food 31/03/21 IBUPROFEN 800 MG TABS 955375 IBUPROFEN Inactive HYDROCODONE-ACETAMINOPHEN 5-325 MG TABS 1 tab by mouth every 6 hours as needed HYDROCODONE-ACETAMINOPHEN 5-325 MG TABS 060943 HYDROCODONE-ACETAMINOPHEN Inactive BACTROBAN 2 % CREAM Apply to affected area BID for up to 10 days BACTROBAN 2 % CREAM 981308 MUPIROCIN CALCIUM Inactive MAGNESIUM CITRATE 1.745 GM/30ML ORAL SOLN 150ml po BID PRN C onstipation MAGNESIUM CITRATE 1.745 GM/30ML ORAL SOLN 032448 0 MAGNESIUM CITRATE Inactive CIPRO 500 MG TAB 1 tablet by mouth twice daily CIPRO 500 MG TAB 191360 CIPROFLOXACIN HCL Inactive FLUCONAZOLE 150 MG TABS take 1 tab po qday once 04/06 FLUCONAZOLE 150 MG TABS 242379 FLUCONAZOLE Inactive ZITHROMAX Z-KARTHIK 250 MG TABS 2 today, then 1 daily for 4 days 201 09/18/28 ZITHROMAX Z-KARTHIK 250 MG TABS 9631788 AZITHROMYCIN Inac tive PREDNISONE 20 MG TAB 2 tabs daily for 3 days, 1 t ab daily for 3 days, 1/2 tab daily for 2 days PREDNISONE 20 MG TAB 669878 PREDNISON E Inactive AZITHROMYCIN 250 MG TABS 2 po qd x 1 day, then 1 po qd x 4 days AZITHROMYCIN 250 MG TABS 2758592 AZITHROMYCIN Inactiv e PREDNISONE 20 MG TAB 2 tabs daily for 3 days, 1 t ab daily for 3 days, 1/2 tab daily for 2 days PREDNISONE 20 MG TAB 608394 PREDNISON E Inactive CEFDINIR 300 MG CAPS by mouth twice a day CEFDINIR 300 MG CAPS 111694 CEFDINIR Inactive TRIAMCINOLONE ACETONIDE 0.1 % OINT Apply to affected a reas TID for up to 2 weeks TRIAMCINOLONE ACETONIDE 0.1 % OINT 695080 6 TRIAMCINOLONE ACETONIDE Inactive PREDNISONE 20 MG TAB 2 tabs daily for 3 days, 1 t ab daily for 3 days, 1/2 tab daily for 2 days PREDNISONE 20 MG TAB 963703 PREDNISON E Inactive BACTRIM DS 800-160 MG TABS 1 po BID x 7 days 0 BACTRIM DS 800-160 MG TABS 454029 SULFAMETHOXAZOLE-TRIMETHOPRIM Inactive CIPRO 500 MG TAB 1 tablet by mouth twice daily CIPRO 500 MG TAB 976013 CIPROFLOXACIN HCL Inactive AZITHROMYCIN 250 MG TABS 2 po qd x 1 day, then 1 po qd x 4 days AZITHROMYCIN 250 MG TABS 0201105 AZITHROMYCIN Inactiv e FLAGYL 500 MG TAB 1 tablet by mouth bid FLAGYL 500 MG TAB 866457 METRONIDAZOLE Inactive AZITHROMYCIN 250 MG TABS 2 po qd x 1 day, then 1 po qd x 4 days AZITHROMYCIN 250 MG TABS 3656208 AZITHROMYCIN Inactiv e Immunizations Vaccine Administration Date [...] ... - Chemistry sodium, serum 141 mmol/L 150-683 6292/01/26 carbon dioxide, venous blood 30.0 mmol/L 21.0-32 .0 potassium, serum 4.0 mmol/L 3.5-5.2 chloride, serum 105 mmol/L 98-107 blood glucose 85 mg/dL 65-110 urea nitrogen, blood 9 mg/dL 7-18 creatinine, serum 0.66 mg/dL 0.55-1.30 alanine aminotransferase (SGPT), serum 31 U/L 12-78 aspartate aminotransferase (SGOT), serum 21 U/L 15-37 calcium, serum 8.2 mg/dL 8.5-10.1 bilirubin, serum, total 1.10 mg/dL 0.00-1.00 cholesterol, serum 178 mg/dL 947-365 4242/01/26 triglyceride, serum, fasting 149 mg/dL 30-200 HDL [...] 5.0-8.5 Encounters Code Encounter Date Provider Facility CPT-72586 Level 3 Est. Patient 11:28:51 SENIOR SOFTWARE ENGINEERING MANAGER Efren almendarez APRN [facility] CPT-31855 Level 4 Est. Patient 13:55:46 SENIOR SOFTWARE ENGINEERING MANAGER Checo Conklin MD [facility] CPT-02388 Level 4 Est. Patient 17:10:53 CDT Checo Conklin MD [facility] CPT-89916 Level 3 Est. Patient 15:56:22 CDT Checo Conklin MD [facility] CPT-87169 Level 3 Est. Patient 15:29:07 CDT Checo Conklin MD [facility] CPT-80566 Level 3 Est. Patient 14:38:41 CDT Checo Conklin MD [facility] CPT-58818 Level 3 Est. Patient 15:22:03 SENIOR SOFTWARE ENGINEERING MANAGER Thomas reynolds DO [facility] CPT-79781 Level 3 Est. Patient 13:34:17 SENIOR SOFTWARE ENGINEERING MANAGER Checo Conklin MD [facility] CPT-46866 Level 3 Est. Patient 12:29:32 CDT Dangelo arroyo MD [facility] CPT-67977 Level 3 Est. Patient 16:53:02 CDT Checo Conklin MD [facility] CPT-29739 Level 3 Est. Patient 16:37:13 CDT Checo Conklin MD [facility] CPT-98571 Level 3 Est. Patient 16:16:59 CDT Paul Hamlin MD [facility] CPT-14251 Level 3 Est. Patient 14:20:13 CDT Dangelo arroyo MD [facility] CPT-94621 Level 4 Est. Patient 11:29:33 CDT Checo Conklin MD [facility] CPT-50099 Level 3 Est. Patient 17:08:31 CDT Checo Conklin MD [facility] CPT-18769 Level 3 Est. Patient 16:50:42 SENIOR SOFTWARE ENGINEERING MANAGER Checo Conklin MD [facility] CPT-74003 Level 4 Est. Patient 09:26:08 SENIOR SOFTWARE ENGINEERING MANAGER Checo Conklin MD [facility] CPT-44469 Level 3 Est. Patient 11:37:10 CDT Checo Conklin MD [facility] CPT-41529 Level 4 Est. Patient 14:07:38 CDT Checo Conklin MD [facility] CPT-35758 Level 3 Est. Patient 09:54:41 CDT Checo Conklin MD [facility] CPT-22343 Level 3 Est. Patient 11:10:54 CDT Paul Hamlin MD [facility] CPT-42482 Level 3 Est. Patient 14:16:56 SENIOR SOFTWARE ENGINEERING MANAGER Checo Conklin MD [facility] CPT-86212 Level 3 Est. Patient 11:04:11 SENIOR SOFTWARE ENGINEERING MANAGER Checo Conklin MD [facility] CPT-95628 Level 3 Est. Patient 17:09:26 CDT Dangelo arroyo MD [facility] CPT-89679 Level 3 Est. Patient 16:54:37 CDT Checo Conklin MD [facility] Procedures Code Procedure Name Date Entry Date Standard Desc ription CPT-OV Office Visit 11:31:28 CDT CPT-41643 Tubersol 09:39:29 CDT CPT-J2550 Phenergan 25 mg (Promethazine) 13:59:02 SENIOR SOFTWARE ENGINEERING MANAGER CPT-J1885 Toradol 60 mg (Ketorolac) 13:59:02 SENIOR SOFTWARE ENGINEERING MANAGER 2012
--- OUTSIDE RECORDS SUMMARY | 2019-09-29 02:06 | XMS REPORT | Clinical Summary ---
Author Author Admin, Bethany Ayala [facility] Address Unknown Phone Unavailable [...] Active Checo Conklin MD Dizziness and giddiness FH BREAST CANCER ICD-V16.3 Inactive Checo Joshua FH DIABETES ICD-V18.0 Inactive Checo Conklin MD 201 08/27/26 CONCUSSION ICD-850.9 Inactive Checo Joshua UTI ICD-599.0 Inactive Checo Conklin MD 2013 ABDOMINAL PAIN RIGHT LOWER QUADRANT ICD-789.03 Ozzy Conklin MD HEADACHE, TENSION ICD-307.81 Inactive Checo Conklin MD PHARYNGITIS ICD-462 Ozzy Conklin MD OTITIS MEDIA-RIGHT ICD-382.9 Inactive Checo [...] MD Abdominal pain ICD-789.00 Ozzy ngo MD Medication List Medication Instructions Start Date Stop Date Generic Name NDC Status Provider Patient Instruction METOCLOPRAMIDE HCL 10 MG ORAL TABS take one PO tid PRN nausea 12/29 METOCLOPRAMIDE HCL 19890951930 Active Checo Conklin MD Act mike TERBINAFINE HCL 250 MG ORAL TABS take one table PO one time daily 2 TERBINAFINE HCL 43907769564 Active Checo Conklin MD Active BUPROPION HCL ER (SR) 100 MG ORAL [id number] take one t ablet by mouth one time daily for one week then take 1 two times daily B UPROPION HCL 32704514244 Active Chceo Conklin MD Active TRAVEL SICKNESS 25 MG ORAL CHEW chew and swallow one t ablet every 6 hours as needed MECLIZINE HCL 45358339406 Active Checo Conklin MD Active SUMATRIPTAN SUCCINATE 100 MG ORAL TABS Take one PRN for migrane 201 11/19/14 SUMATRIPTAN SUCCINATE 48364759565 Active Checo Conklin MD Active COMPRO 25 MG RECTAL SUPP insert or apply one supposit ory rectally as directed every 12 hours as needed for nausea PROCHLORPERAZINE 0 8555576328 Active Checo Conklin MD Active ONDANSETRON [address] one tablet on tongue and allow to dissolve every 6 hours as needed for vomitting ONDANSETRON 658 15137480 Active Checo Conklin MD Active DICLOFENAC SODIUM 75 MG TBEC 1 tablet by mouth twice daily P RN Knee pain DICLOFENAC SODIUM 19539436563 No Longer Active Checo Conklin MD Active HYDROCODONE-ACETAMINOPHEN 5-325 MG TABS 0.5 to 1 tab b y mouth every 6 hours as needed HYDROCODONE-ACETAMINOPHEN 15769892941 Active Checo Conklin MD Active LAMISIL 250 MG TAB 1 po qd TERBINAFINE HCL 548 34846805 No Longer Active Checo Conklin MD Active REGLAN 10 MG TAB 1 po TID PRN Nausea METOCLOPRA MIDE HCL 35493165857 No Longer Active Checo Conklin MD Active CELEXA 20 MG TABS 1 tablet by mouth daily CITALOPRAM HYDROBROMIDE 47855123763 No Longer Active Checo Conklin MD Activ e AZITHROMYCIN 250 MG TABS 2 po qd x 1 day, then 1 po qd x 4 days AZITHROMYCIN 99918366608 No Longer Active Checo Conklin MD Active HYDROCODONE-ACETAMINOPHEN 5-325 MG TABS 1 po q 6hr PRN Pain 2013 HYDROCODONE-ACETAMINOPHEN 59699387032 No Longer Active Lenora Conklin MD Active PHENAZOPYRIDINE HCL 200 MG TABS take 1 tab po TID for bladder pa in PHENAZOPYRIDINE HCL 17740953152 No Longer Active Checo Joshua Active CIPRO 500 MG TAB 1 tablet by mouth twice daily CIPROFLOXACIN HCL 84249287466 No Longer Active Dangelo aRngel MD Active HYDROCODONE-ACETAMINOPHEN 5-325 MG TABS 1/2 to 1 po q 4 hour s prn cough HYDROCODONE-ACETAMINOPHEN 44650986594 No Longer Activ e Dangelo Rangel MD Active BACTRIM DS 800-160 MG TABS 1 po BID x 7 days 0 SULFAMETHOXAZOLE-TRIMETHOPRIM 23753102327 No Longer Active Checo Conklin MD Active PREDNISONE 20 MG TAB 2 tabs daily for 3 days, 1 t ab daily for 3 days, 1/2 tab daily for 2 days PREDNISONE 25491485263 No Longer Active Checo Conklin MD Active TRIAMCINOLONE ACETONIDE 0.1 % OINT Apply to affected a reas TID for up to 2 weeks TRIAMCINOLONE ACETONIDE 63220284579 No Longer A ctive Checo Conklin MD Active CEFDINIR 300 MG CAPS by mouth twice a day CEFDI JAZZY 62419065878 No Longer Active Dangelo Rangel MD Active BUPROPION HCL (SMOKING DETER) 150 MG [id number] 1 a day for 1 week then 1 twice a day BUPROPION HCL (SMOKING DETER) 59908414108 No Lo nger Active Checo Conklin MD Active SIMVASTATIN 20 MG TABS 1 po qd SIMVASTATIN 7492781837 5 Active Checo Conklin MD Active CHANTIX STARTING MONTH KARTHIK 0.5 MG X 11 & 1 MG X 42 TAB S 0.5mg daily for 3 days, then 0.5mg BID for 4 days, then 1mg BID VARENICLINE TARTRATE 02444051711 No Longer Active Checo Conklin MD Activ e XANAX 0.5 MG TABS 1 po BID PRN anxiety ALPRAZOLAM 76051329648 Active Checo Conklin MD Active CONCERTA 18 MG CR-TABS 1 po q a.m. METHYLPHENID ATE HCL 04227850476 No Longer Active Checo Conklin MD Active AMBIEN 5 MG TAB 1 po qHS PRN Insomnia ZOLPIDEM TARTRATE 06338368516 Active Checo Conklin MD Active TRAZODONE HCL 100 MG TAB 0.5 to 1 po qHS PRN Insomnia TRAZODONE HCL 76918772732 No Longer Active Checo Conklin MD Acti ve FIORICET 325-50-40 MG TAB 1 tablet by mouth four times daily as needed [id number] 02804198783 No Longer Active Checo Conklin MD Active PHENERGAN CREAM* 25mg applied to wrist q6hr PRN Nausea PHENERGAN CREAM* No Longer Active Checo Conklin MD A ctive FLONASE 50 MCG/ACT SUSP 1 spray each nostril am and hs FLUTICASONE PROPIONATE 88099820627 No Longer Active Checo Conklin MD Activ e ANTIPYRINE-BENZOCAINE 5.4-1.4 % SOLN 1-2 drops in affected ear BENZOCAINE-ANTIPYRINE 18995289083 No Longer Active Checo Conklin MD Active CEFDINIR 300 MG CAPS 1 po bid CEFDINIR 70637225 120 No Longer Active Checo Conklin MD Active PREDNISONE 20 MG TAB 2 tabs daily for 3 days, 1 t ab daily for 3 days, 1/2 tab daily for 2 days PREDNISONE 38664743123 No Longer Active Aracelis Conklin MD Active AZITHROMYCIN 250 MG TABS 2 po qd x 1 day, then 1 po qd x 4 days AZITHROMYCIN 10576257802 No Longer Active Checo Conklin MD Active PREDNISONE 20 MG TAB 2 tabs daily for 3 days, 1 t ab daily for 3 days, 1/2 tab daily for 2 days PREDNISONE 63869442816 No Longer Active Checo Conklin MD Active ZITHROMAX Z-KARTHIK 250 MG TABS 2 today, then 1 daily for 4 days 201 09/18/28 AZITHROMYCIN 71677837977 No Longer Active Paul Hamlin MD Active FOCALIN XR 10 MG [id number] 1 po q a.m. D EXMETHYLPHENIDATE HCL 34476299696 No Longer Active Paul Hamlin MD Activ e PERCOCET 10-325 MG TABS 1 tablet every 6 hours as needed for pain OXYCODONE-ACETAMINOPHEN 91210531883 No Longer Active Paul Hamlin MD Active LORTAB 5 5-500 MG TABS 1/2 to 1 tablet by mouth flaquito ry 4 hours as needed for pain HYDROCODONE-ACETAMINOPHEN 87732856671 No Longer Active Checo Conklin MD Active FOCALIN XR 15 MG [id number] 1 po q a.m. D EXMETHYLPHENIDATE HCL 53754066832 No Longer Active Checo Conklin MD Activ e ZOFRAN ODT 4 MG TBDP 1 po q6hr PRN Nausea ONDAN SETRON 63110656400 No Longer Active Checo Conklin MD Active PERCOCET 5-325 MG TABS 1 tablet by mouth every 6 hours as needed OXYCODONE-ACETAMINOPHEN 07814489365 No Longer Active Checo Conklin MD Active PYRIDIUM 200 MG TABS take 1 tab po TID prn urinary pain. 0 PHENAZOPYRIDINE HCL 74431294495 No Longer Active Checo Conklin MD Active FLUCONAZOLE 150 MG TABS take 1 tab po qday once 0 04/06 FLUCONAZOLE 03822409366 No Longer Active Dangelo Rangel MD Acti ve CIPRO 500 MG TAB 1 tablet by mouth twice daily CIPROFLOXACIN HCL 97266234157 No Longer Active Dangelo Rangel MD Active PYRIDIUM 200 MG TABS take 1 tab po TID prn urinary pain. 0 PYRIDIUM 200 MG TABS 1548205 PHENAZOPYRIDINE HCL Inactive PERCOCET 5-325 MG TABS 1 tablet by mouth every 6 hours as needed PERCOCET 5-325 MG TABS 0349094 OXYCODONE-ACETAMINOPHEN I nactive ZOFRAN ODT 4 MG TBDP 1 po q6hr PRN Nausea ZOFRAN ODT 4 MG TBDP 525988 ONDANSETRON Inactive FOCALIN XR 15 MG [id number] 1 po q a.m. F OCALIN XR 15 MG [id number] DEXMETHYLPHENIDATE HCL Inactive LORTAB 5 5-500 MG TABS 1/2 to 1 tablet by mouth flaquito ry 4 hours as needed for pain LORTAB 5 5-500 MG TABS HYDROCODONE-A CETAMINOPHEN Inactive PERCOCET 10-325 MG TABS 1 tablet every 6 hours as needed for pain PERCOCET 10-325 MG TABS 9969521 OXYCODONE-ACETAMINOPHEN Inactive FOCALIN XR 10 MG [id number] 1 po q a.m. F OCALIN XR 10 MG [id number] DEXMETHYLPHENIDATE HCL Inactive CEFDINIR 300 MG CAPS 1 po bid CEFDINIR 300 MG CAPS 20 0346 CEFDINIR Inactive ANTIPYRINE-BENZOCAINE 5.4-1.4 % SOLN 1-2 drops in affected ear ANTIPYRINE-BENZOCAINE 5.4-1.4 % SOLN 242248 BENZOCAINE-ANTIPYRINE I nactive FLONASE 50 MCG/ACT SUSP 1 spray each nostril am and hs FLONASE 50 MCG/ACT SUSP 818004 FLUTICASONE PROPIONATE Inactive PHENERGAN CREAM* 25mg applied to wrist q6hr PRN Nausea PHENERGAN CREAM* Inactive FIORICET 325-50-40 MG TAB 1 tablet by mouth four times daily as needed FIORICET 325-50-40 MG TAB ACETAMINOPHEN-C AFF-BUTALBITAL Inactive TRAZODONE HCL 100 MG TAB 0.5 to 1 po qHS PRN Insomnia TRAZODONE HCL 100 MG TAB 844372 TRAZODONE HCL Inactive CONCERTA 18 MG CR-TABS [...] s prn cough HYDROCODONE-ACETAMINOPHEN 5-325 MG TABS 274830 HYDROCODONE-ACETAMINOPHEN Inactive PHENAZOPYRIDINE HCL 200 MG TABS take 1 tab po TID for bladder pa in PHENAZOPYRIDINE HCL 200 MG TABS 0987843 PHENAZOPYRIDINE HCL Inactive HYDROCODONE-ACETAMINOPHEN 5-325 MG TABS 1 po q 6hr PRN Pain 2013 HYDROCODONE-ACETAMINOPHEN 5-325 MG TABS 453947 HYDROCODONE-ACETAMINOPHEN Inactive CELEXA 20 MG TABS 1 tablet by mouth daily CELEXA 20 MG TABS 857281 CITALOPRAM HYDROBROMIDE Inactive REGLAN 10 MG TAB 1 po TID PRN Nausea REGLAN 10 MG TAB 961211 METOCLOPRAMIDE HCL Inactive LAMISIL 250 MG TAB 1 po qd LAMISIL 250 MG TAB 412181 TERBINAFINE HCL Inactive DICLOFENAC SODIUM 75 MG TBEC 1 tablet by mouth twice daily P RN Knee pain DICLOFENAC SODIUM 75 MG TBEC 165242 DICLOFENAC S ODIUM Inactive CIPRO 500 MG TAB 1 tablet by mouth twice daily CIPRO 500 MG TAB 509070 CIPROFLOXACIN HCL Inactive FLUCONAZOLE 150 MG TABS take 1 tab po qday once 04/06 FLUCONAZOLE 150 MG TABS 496016 FLUCONAZOLE Inactive ZITHROMAX Z-KARTHIK 250 MG TABS 2 today, then 1 daily for 4 days 201 09/18/28 ZITHROMAX Z-KARTHIK 250 MG TABS 6502765 AZITHROMYCIN Inac tive PREDNISONE 20 MG TAB 2 tabs daily for 3 days, 1 t ab daily for 3 days, 1/2 tab daily for 2 days PREDNISONE 20 MG TAB 741143 PREDNISON E Inactive AZITHROMYCIN 250 MG TABS 2 po qd x 1 day, then 1 po qd x 4 days AZITHROMYCIN 250 MG TABS 9689771 AZITHROMYCIN Inactiv e PREDNISONE 20 MG TAB 2 tabs daily for 3 days, 1 t ab daily for 3 days, 1/2 tab daily for 2 days PREDNISONE 20 MG TAB 141380 PREDNISON E Inactive CEFDINIR 300 MG CAPS by mouth twice a day CEFDINIR 300 MG CAPS 304069 CEFDINIR Inactive TRIAMCINOLONE ACETONIDE 0.1 % OINT Apply to affected a reas TID for up to 2 weeks TRIAMCINOLONE ACETONIDE 0.1 % OINT 862582 6 TRIAMCINOLONE ACETONIDE Inactive PREDNISONE 20 MG TAB 2 tabs daily for 3 days, 1 t ab daily for 3 days, 1/2 tab daily for 2 days PREDNISONE 20 MG TAB 390185 PREDNISON E Inactive BACTRIM DS 800-160 MG TABS 1 po BID x 7 days 0 BACTRIM DS 800-160 MG TABS SULFAMETHOXAZOLE-TRIMETHOPRIM Inactive CIPRO 500 MG TAB 1 tablet by mouth twice daily CIPRO 500 MG TAB 133294 CIPROFLOXACIN HCL Inactive AZITHROMYCIN 250 MG TABS 2 po qd x 1 day, then 1 po qd x 4 days AZITHROMYCIN 250 MG TABS 8081995 AZITHROMYCIN Inactiv e Immunizations Vaccine Administration Date Value Standard Michael cription TB-PPD (tuberculin purified protein derivative), intra dermal administration Tubersol Vital Signs Date Name Value Unit Range Description blood pressure, diastolic - 8462-4 74 mm[Hg] [...] - 3141-9 114 [lb_av] Weigh t Measured Diagnostic Results Date Name Value Unit Range Description Immunizations: Immunization Administrati on - Challenge tests PPD results in mm < 5mm mm Lab Report: Comp. Metabolic Panel, Lipid Panel - Chemistry sodium, serum 139 mmol/L 404-269 7209/10/24 potassium, serum 4.1 mmol/L 3.5-5.2 chloride, serum [...] 0.80 mg/dL 0.00-1.00 cholesterol, serum 147 mg/dL 110-607 2537/10/24 triglyceride, serum, fasting 112 mg/dL 30-200 HDL [...] 5.0-8.5 Encounters Code Encounter Date Provider Facility CPT-33864 Level 3 Est. Patient 15:29:07 CDT Checo Conklin MD [facility] CPT-32333 Level 3 Est. Patient 14:38:41 CDT Checo Conklin MD [facility] CPT-73731 Level 3 Est. Patient 15:22:03 SENIOR GAME DEVELOPER Thomas reynolds DO [facility] CPT-32674 Level 3 Est. Patient 13:34:17 SENIOR GAME DEVELOPER Checo Conklin MD [facility] CPT-09419 Level 3 Est. Patient 12:29:32 CDT Dangelo arroyo MD [facility] CPT-85495 Level 3 Est. Patient 16:53:02 CDT Checo Conklin MD [facility] CPT-96441 Level 3 Est. Patient 16:37:13 CDT Checo Conklin MD [facility] CPT-85801 Level 3 Est. Patient 16:16:59 CDT Paul Hamlin MD [facility] CPT-04613 Level 3 Est. Patient 14:20:13 CDT Dangelo arroyo MD [facility] CPT-86065 Level 4 Est. Patient 11:29:33 CDT Checo Conklin MD [facility] CPT-53146 Level 3 Est. Patient 17:08:31 CDT Checo Conklin MD [facility] CPT-03900 Level 3 Est. Patient 16:50:42 SENIOR GAME DEVELOPER Checo Conklin MD [facility] CPT-79613 Level 4 Est. Patient 09:26:08 SENIOR GAME DEVELOPER Checo Conklin MD [facility] CPT-69080 Level 3 Est. Patient 11:37:10 CDT Checo Conklin MD [facility] CPT-31360 Level 4 Est. Patient 14:07:38 CDT Checo Conklin MD [facility] CPT-01010 Level 3 Est. Patient 09:54:41 CDT Checo Conklin MD [facility] CPT-56585 Level 3 Est. Patient 11:10:54 CDT Paul Hamlin MD [facility] CPT-68254 Level 3 Est. Patient 14:16:56 SENIOR GAME DEVELOPER Checo Conklin MD [facility] CPT-06943 Level 3 Est. Patient 11:04:11 SENIOR GAME DEVELOPER Checo Conklin MD [facility] CPT-07527 Level 3 Est. Patient 17:09:26 CDT Dangelo arroyo MD [facility] CPT-30841 Level 3 Est. Patient 16:54:37 CDT Checo Conklin MD [facility] Procedures Code Procedure Name Date Entry Date Standard Desc ription CPT-OV Office Visit 11:31:28 CDT CPT-30559 Tubersol 09:39:29 CDT CPT-J2550 Phenergan 25 mg (Promethazine) 13:59:02 SENIOR GAME DEVELOPER CPT-J1885 Toradol 60 mg (Ketorolac) 13:59:02 SENIOR GAME DEVELOPER 2012
--- OUTSIDE RECORDS SUMMARY | 2019-09-29 02:06 | XMS REPORT | Clinical Summary ---
Author Author Admin, Bethany Ayala [facility] Address Unknown Phone Unavailable Allergies, [...] Checo Conklin MD Urinary frequency ICD-788.41 Inactive Chceo Conklin MD Sinusitis, acute ICD-461.9 Inactive Checo Ortiz MD Medication List Medication Instructions Start Date Stop Date Generic Name NDC Status Provider Patient Instruction PAROXETINE HCL 20 MG ORAL TABS 1.5 po qd PAROX ETINE HCL 10940130847 Active Checo Conklin MD Active FLUTICASONE PROPIONATE 50 MCG/ACT NASAL SUSP 2 sprays/ nostril qd PRN Congestion/Allergies FLUTICASONE PROPIONATE 2675440948 5 No Longer Active Checo Conklin MD Active AMOXICILLIN 500 MG ORAL CAPS 2 po BID x 10 days 09/12 AMOXICILLIN 02885140765 No Longer Active Checo Conklin MD Activ e MIRALAX ORAL POWD 8.5 to 17g po qd PRN Constipation POLYETHYLENE GLYCOL 3350 28057922666 Active Checo Conklin MD Active CLARITIN 10 MG TAB 1 tablet by mouth daily as needed for allergi es LORATADINE 77447784394 No Longer Active Checo Conklin MD Active BACTRIM DS 800-160 MG TAB 1 tab by mouth twice daily 2 TRIMETHOPRIM-SULFAMETHOXAZOLE 51388810225 No Longer Active Tanner Carrillo MD Active DIFLUCAN 150 MG TAB 1 tablet by mouth qod FLUCO NAZOLE 62322222259 No Longer Active Efren Medel APRN Active AZITHROMYCIN 250 MG TABS 2 po qd x 1 day, then 1 po qd x 4 days AZITHROMYCIN 80552971973 No Longer Active Efren Medel LEGAL SERVICE SPECIALIST Active FLAGYL 500 MG TAB 1 tablet by mouth bid METRONI DAZOLE 40819015860 No Longer Active Checo Conklin MD Active FOCALIN XR 10 MG ORAL [id number] 1 po q a.m. DEX METHYLPHENIDATE HCL 03936739397 Active Checo Conklin MD Active MAGNESIUM CITRATE 1.745 GM/30ML ORAL SOLN 150ml po BID PRN C onstipation MAGNESIUM CITRATE 79623442873 No Longer Active Checo Conklin MD Active BACTROBAN 2 % CREAM Apply to affected area BID for up to 10 days MUPIROCIN CALCIUM 03139969962 No Longer Active Checo Conklin MD Active HYDROCODONE-ACETAMINOPHEN 5-325 MG TABS 1 tab by mouth every 6 hours as needed HYDROCODONE-ACETAMINOPHEN 44386735158 No Longer Activ e Checo Conklin MD Active IBUPROFEN 800 MG TABS 1 tab every 8 hours with food 20 31/03/21 IBUPROFEN 68903538281 No Longer Active Checo Conklin MD Activ e DIFLUCAN 150 MG TAB 1 tablet by mouth if needed, hold until symptoms start FLUCONAZOLE 98226689894 No Longer Active Checo Ortiz MD Active BACTRIM DS 800-160 MG TAB 1 tab by mouth twice daily 2 TRIMETHOPRIM-SULFAMETHOXAZOLE 72044180564 No Longer Active Corry leong LPN Active HYDROCODONE-ACETAMINOPHEN 5-325 MG TABS 0.5 to 1 tab b y mouth every 6 hours as needed HYDROCODONE-ACETAMINOPHEN 65390586890 No Longer Active Checo Conklin MD Active ONDANSETRON [address] one tablet on tongue and allow to dissolve every 6 hours as needed for vomitting ONDANSETRO N 83932110071 No Longer Active Checo Conklin MD Active COMPRO 25 MG RECTAL SUPP insert or apply one supposit ory rectally as directed every 12 hours as needed for nausea PROCHLORPERA ZINE 75870276042 No Longer Active Checo Conklin MD Active SUMATRIPTAN SUCCINATE 100 MG ORAL TABS Take one PRN for migrane SUMATRIPTAN SUCCINATE 08793380864 No Longer Active Checo Conklin MD Active TRAVEL SICKNESS 25 MG ORAL CHEW chew and swallow one t ablet every 6 hours as needed MECLIZINE HCL 70112167266 No Longer Active Joe Conklin MD Active BUPROPION HCL ER (SR) 100 MG ORAL [id number] take one t ablet by mouth one time daily for one week then take 1 two times daily BUPROPION HCL 32139024469 No Longer Active Checo Conklin MD Activ e TERBINAFINE HCL 250 MG ORAL TABS take one table PO one time abran y TERBINAFINE HCL 10576966769 No Longer Active Checo Conklin MD Active METOCLOPRAMIDE HCL 10 MG ORAL TABS take one PO tid PRN nausea 20 29/12/14 METOCLOPRAMIDE HCL 69596037516 No Longer Active Checo Conklin MD Active DICLOFENAC SODIUM 75 MG TBEC 1 tablet by mouth twice daily P RN Knee pain DICLOFENAC SODIUM 05111965933 No Longer Active Checo Conklin MD Active LAMISIL 250 MG TAB 1 po qd TERBINAFINE HCL 548 53594711 No Longer Active Checo Conklin MD Active REGLAN 10 MG TAB 1 po TID PRN Nausea METOCLOPRA MIDE HCL 80742166467 No Longer Active Checo Conklin MD Active CELEXA 20 MG TABS 1 tablet by mouth daily CITALOPRAM HYDROBROMIDE 63055331606 No Longer Active Checo Conklin MD Activ e AZITHROMYCIN 250 MG TABS 2 po qd x 1 day, then 1 po qd x 4 days AZITHROMYCIN 13806524880 No Longer Active Checo Conklin MD Active HYDROCODONE-ACETAMINOPHEN 5-325 MG TABS 1 po q 6hr PRN Pain 2013 HYDROCODONE-ACETAMINOPHEN 54273494566 No Longer Active Lenora Conklin MD Active PHENAZOPYRIDINE HCL 200 MG TABS take 1 tab po TID for bladder pa in PHENAZOPYRIDINE HCL 89148198564 No Longer Active Checo Joshua Active CIPRO 500 MG TAB 1 tablet by mouth twice daily CIPROFLOXACIN HCL 92341536274 No Longer Active Dangelo Rangel MD Active HYDROCODONE-ACETAMINOPHEN 5-325 MG TABS 1/2 to 1 po q 4 hour s prn cough HYDROCODONE-ACETAMINOPHEN 02285625818 No Longer Activ e Dangelo Rangel MD Active BACTRIM DS 800-160 MG TABS 1 po BID x 7 days 0 SULFAMETHOXAZOLE-TRIMETHOPRIM 02164944492 No Longer Active Checo Conklin MD Active PREDNISONE 20 MG TAB 2 tabs daily for 3 days, 1 t ab daily for 3 days, 1/2 tab daily for 2 days PREDNISONE 02954867989 No Longer Active Checo Conklin MD Active TRIAMCINOLONE ACETONIDE 0.1 % OINT Apply to affected a reas TID for up to 2 weeks TRIAMCINOLONE ACETONIDE 87297296465 No Longer A ctive Checo Conklin MD Active CEFDINIR 300 MG CAPS by mouth twice a day CEFDI JAZZY 32803052911 No Longer Active Dangelo Rangel MD Active BUPROPION HCL (SMOKING DETER) 150 MG [id number] 1 a day for 1 week then 1 twice a day BUPROPION HCL (SMOKING DETER) 47352156395 No Lo nger Active Checo Conklin MD Active SIMVASTATIN 20 MG TABS 1 po qd SIMVASTATIN 7820213671 5 Active Checo Conklin MD Active CHANTIX STARTING MONTH KARTHIK 0.5 MG X 11 & 1 MG X 42 TAB S 0.5mg daily for 3 days, then 0.5mg BID for 4 days, then 1mg BID VARENICLINE TARTRATE 23107275226 No Longer Active Checo Conklin MD Activ e XANAX 0.5 MG TABS 1 po BID PRN anxiety ALPRAZOLAM 39373357253 Active Checo Conklin MD Active CONCERTA 18 MG CR-TABS 1 po q a.m. METHYLPHENID ATE HCL 44625541052 No Longer Active Checo Conklin MD Active AMBIEN 5 MG TAB 1 po qHS PRN Insomnia ZOLPIDEM TARTRATE 38328178363 Active Checo Conklin MD Active TRAZODONE HCL 100 MG TAB 0.5 to 1 po qHS PRN Insomnia TRAZODONE HCL 14128753736 No Longer Active Checo Conklin MD Acti ve FIORICET 325-50-40 MG TAB 1 tablet by mouth four times daily as needed [id number] 52225659684 No Longer Active Checo Conklin MD Active PHENERGAN CREAM* 25mg applied to wrist q6hr PRN Nausea PHENERGAN CREAM* No Longer Active Checo Conklin MD A ctive FLONASE 50 MCG/ACT SUSP 1 spray each nostril am and hs FLUTICASONE PROPIONATE 98473492197 No Longer Active Checo Conklin MD Activ e ANTIPYRINE-BENZOCAINE 5.4-1.4 % SOLN 1-2 drops in affected ear BENZOCAINE-ANTIPYRINE 24395511638 No Longer Active Checo Conklin MD Active CEFDINIR 300 MG CAPS 1 po bid CEFDINIR 64940843 120 No Longer Active Checo Conklin MD Active PREDNISONE 20 MG TAB 2 tabs daily for 3 days, 1 t ab daily for 3 days, 1/2 tab daily for 2 days PREDNISONE 53922321482 No Longer Active Aracelis Conklin MD Active AZITHROMYCIN 250 MG TABS 2 po qd x 1 day, then 1 po qd x 4 days AZITHROMYCIN 18355443726 No Longer Active Checo Conklin MD Active PREDNISONE 20 MG TAB 2 tabs daily for 3 days, 1 t ab daily for 3 days, 1/2 tab daily for 2 days PREDNISONE 50215697678 No Longer Active Checo Conklin MD Active ZITHROMAX Z-KARTHIK 250 MG TABS 2 today, then 1 daily for 4 days 201 09/18/28 AZITHROMYCIN 58103977228 No Longer Active Paul Hamlin MD Active FOCALIN XR 10 MG [id number] 1 po q a.m. D EXMETHYLPHENIDATE HCL 37147890196 No Longer Active Paul Hamlin MD Activ e PERCOCET 10-325 MG TABS 1 tablet every 6 hours as needed for pain OXYCODONE-ACETAMINOPHEN 50535196899 No Longer Active Paul Hamlin MD Active LORTAB 5 5-500 MG TABS 1/2 to 1 tablet by mouth flaquito ry 4 hours as needed for pain HYDROCODONE-ACETAMINOPHEN 36348126852 No Longer Active Checo Conklin MD Active FOCALIN XR 15 MG [id number] 1 po q a.m. D EXMETHYLPHENIDATE HCL 55892111970 No Longer Active Checo Conklin MD Activ e ZOFRAN ODT 4 MG TBDP 1 po q6hr PRN Nausea ONDAN SETRON 25145259442 No Longer Active Checo Conklin MD Active PERCOCET 5-325 MG TABS 1 tablet by mouth every 6 hours as needed OXYCODONE-ACETAMINOPHEN 40566229953 No Longer Active Checo Conklin MD Active PYRIDIUM 200 MG TABS take 1 tab po TID prn urinary pain. 0 PHENAZOPYRIDINE HCL 04492925706 No Longer Active Checo Conklin MD Active FLUCONAZOLE 150 MG TABS take 1 tab po qday once 0 04/06 FLUCONAZOLE 28772103490 No Longer Active Dangelo Rangel MD Acti ve CIPRO 500 MG TAB 1 tablet by mouth twice daily CIPROFLOXACIN HCL 31734267665 No Longer Active Dangelo Rangel MD Active PYRIDIUM 200 MG TABS take 1 tab po TID prn urinary pain. 0 PYRIDIUM 200 MG TABS 3274847 PHENAZOPYRIDINE HCL Inactive PERCOCET 5-325 MG TABS 1 tablet by mouth every 6 hours as needed PERCOCET 5-325 MG TABS 6609030 OXYCODONE-ACETAMINOPHEN I nactive ZOFRAN ODT 4 MG TBDP 1 po q6hr PRN Nausea ZOFRAN ODT 4 MG TBDP 173922 ONDANSETRON Inactive FOCALIN XR 15 MG [id number] 1 po q a.m. F OCALIN XR 15 MG [id number] DEXMETHYLPHENIDATE HCL Inactive LORTAB 5 5-500 MG TABS 1/2 to 1 tablet by mouth flaquito ry 4 hours as needed for pain LORTAB 5 5-500 MG TABS 191195 HYDROCODONE-A CETAMINOPHEN Inactive PERCOCET 10-325 MG TABS 1 tablet every 6 hours as needed for pain PERCOCET 10-325 MG TABS 2402350 OXYCODONE-ACETAMINOPHEN Inactive FOCALIN XR 10 MG [id number] 1 po q a.m. F OCALIN XR 10 MG [id number] DEXMETHYLPHENIDATE HCL Inactive CEFDINIR 300 MG CAPS 1 po bid CEFDINIR 300 MG CAPS 20 0346 CEFDINIR Inactive ANTIPYRINE-BENZOCAINE 5.4-1.4 % SOLN 1-2 drops in affected ear ANTIPYRINE-BENZOCAINE 5.4-1.4 % SOLN 466109 BENZOCAINE-ANTIPYRINE I nactive FLONASE 50 MCG/ACT SUSP 1 spray each nostril am and hs FLONASE 50 MCG/ACT SUSP 3584701 FLUTICASONE PROPIONATE Inactive PHENERGAN CREAM* 25mg applied to wrist q6hr PRN Nausea PHENERGAN CREAM* Inactive FIORICET 325-50-40 MG TAB 1 tablet by mouth four times daily as needed FIORICET 325-50-40 MG TAB ACETAMINOPHEN-C AFF-BUTALBITAL Inactive TRAZODONE HCL 100 MG TAB 0.5 to 1 po qHS PRN Insomnia TRAZODONE HCL 100 MG TAB 882207 TRAZODONE HCL Inactive CONCERTA 18 MG CR-TABS [...] s prn cough HYDROCODONE-ACETAMINOPHEN 5-325 MG TABS 903483 HYDROCODONE-ACETAMINOPHEN Inactive PHENAZOPYRIDINE HCL 200 MG TABS take 1 tab po TID for bladder pa in PHENAZOPYRIDINE HCL 200 MG TABS 6385421 PHENAZOPYRIDINE HCL Inactive HYDROCODONE-ACETAMINOPHEN 5-325 MG TABS 1 po q 6hr PRN Pain 2013 HYDROCODONE-ACETAMINOPHEN 5-325 MG TABS 496141 HYDROCODONE-ACETAMINOPHEN Inactive CELEXA 20 MG TABS 1 tablet by mouth daily CELEXA 20 MG TABS 411044 CITALOPRAM HYDROBROMIDE Inactive REGLAN 10 MG TAB 1 po TID PRN Nausea REGLAN 10 MG TAB 125500 METOCLOPRAMIDE HCL Inactive LAMISIL 250 MG TAB 1 po qd LAMISIL 250 MG TAB 048309 TERBINAFINE HCL Inactive DICLOFENAC SODIUM 75 MG TBEC 1 tablet by mouth twice daily P RN Knee pain DICLOFENAC SODIUM 75 MG TBEC 584403 DICLOFENAC S ODIUM Inactive METOCLOPRAMIDE HCL 10 MG ORAL TABS take one PO tid PRN nausea 20 29/12/14 METOCLOPRAMIDE HCL 10 MG ORAL TABS 866138 METOCLOPRAMID E HCL Inactive TERBINAFINE HCL 250 MG ORAL TABS take one table PO one time abran y TERBINAFINE HCL 250 MG ORAL TABS 654803 TERBINAFINE HCL Inactive BUPROPION HCL ER (SR) 100 MG ORAL [id number] take one t ablet by mouth one time daily for one week then take 1 two times daily BUPROPION HCL ER (SR) 100 MG ORAL [id number] BUPROPION HCL Inacti ve TRAVEL SICKNESS 25 MG ORAL CHEW chew and swallow one t ablet every 6 hours as needed TRAVEL SICKNESS 25 MG ORAL CHEW 042983 MECLIZINE HCL Inactive SUMATRIPTAN SUCCINATE 100 MG ORAL TABS Take one PRN for migrane SUMATRIPTAN SUCCINATE 100 MG ORAL TABS 347038 SUMATRIPT AN SUCCINATE Inactive COMPRO 25 MG RECTAL SUPP insert or apply one supposit ory rectally as directed every 12 hours as needed for nausea COMP RO 25 MG RECTAL SUPP 153881 PROCHLORPERAZINE Inactive ONDANSETRON [address] one tablet on tongue and allow to dissolve every 6 hours as needed for vomitting ON DANSETRON 8 MG ORAL TBDP 696126 ONDANSETRON Inactive HYDROCODONE-ACETAMINOPHEN 5-325 MG TABS 0.5 to 1 tab b y mouth every 6 hours as needed HYDROCODONE-ACETAMINOPHEN 5-325 MG TABS 8 22638 HYDROCODONE-ACETAMINOPHEN Inactive BACTRIM DS 800-160 MG TAB 1 tab by mouth twice daily 2 BACTRIM DS 800-160 MG TAB 19820918 TRIMETHOPRIM-SULFAMETHOXAZOLE Inac tive DIFLUCAN 150 MG TAB 1 tablet by mouth if needed, hold until symptoms start DIFLUCAN 150 MG TAB 19760325 FLUCONAZOLE Inactive IBUPROFEN 800 MG TABS 1 tab every 8 hours with food 31/03/21 IBUPROFEN 800 MG TABS 010247 IBUPROFEN Inactive HYDROCODONE-ACETAMINOPHEN 5-325 MG TABS 1 tab by mouth every 6 hours as needed HYDROCODONE-ACETAMINOPHEN 5-325 MG TABS 729898 HYDROCODONE-ACETAMINOPHEN Inactive BACTROBAN 2 % CREAM Apply to affected area BID for up to 10 days BACTROBAN 2 % CREAM 533425 MUPIROCIN CALCIUM Inactive MAGNESIUM CITRATE 1.745 GM/30ML ORAL SOLN 150ml po BID PRN C onstipation MAGNESIUM CITRATE 1.745 GM/30ML ORAL SOLN 969204 0 MAGNESIUM CITRATE Inactive DIFLUCAN 150 MG TAB 1 tablet by mouth qod DIFLUCAN 150 MG TAB 974328 FLUCONAZOLE Inactive BACTRIM DS 800-160 MG TAB 1 tab by mouth twice daily 2 BACTRIM DS 800-160 MG TAB 19820918 TRIMETHOPRIM-SULFAMETHOXAZOLE Inac tive CLARITIN 10 MG TAB 1 tablet by mouth daily as needed for allergi es CLARITIN 10 MG TAB 264435 LORATADINE Inactive FLUTICASONE PROPIONATE 50 MCG/ACT NASAL SUSP 2 sprays/ nostril qd PRN Congestion/Allergies FLUTICASONE PROPION ATE 50 MCG/ACT NASAL SUSP 9622873 FLUTICASONE PROPIONATE Inactive CIPRO 500 MG TAB 1 tablet by mouth twice daily CIPRO 500 MG TAB 022353 CIPROFLOXACIN HCL Inactive FLUCONAZOLE 150 MG TABS take 1 tab po qday once 04/06 FLUCONAZOLE 150 MG TABS 703446 FLUCONAZOLE Inactive ZITHROMAX Z-KARTHIK 250 MG TABS 2 today, then 1 daily for 4 days 201 09/18/28 ZITHROMAX Z-KARTHIK 250 MG TABS 959442 AZITHROMYCIN Inac tive PREDNISONE 20 MG TAB 2 tabs daily for 3 days, 1 t ab daily for 3 days, 1/2 tab daily for 2 days PREDNISONE 20 MG TAB 815164 PREDNISON E Inactive AZITHROMYCIN 250 MG TABS 2 po qd x 1 day, then 1 po qd x 4 days AZITHROMYCIN 250 MG TABS 055684 AZITHROMYCIN Inactiv e PREDNISONE 20 MG TAB 2 tabs daily for 3 days, 1 t ab daily for 3 days, 1/2 tab daily for 2 days PREDNISONE 20 MG TAB 108394 PREDNISON E Inactive CEFDINIR 300 MG CAPS by mouth twice a day CEFDINIR 300 MG CAPS 676959 CEFDINIR Inactive TRIAMCINOLONE ACETONIDE 0.1 % OINT Apply to affected a reas TID for up to 2 weeks TRIAMCINOLONE ACETONIDE 0.1 % OINT 052761 6 TRIAMCINOLONE ACETONIDE Inactive PREDNISONE 20 MG TAB 2 tabs daily for 3 days, 1 t ab daily for 3 days, 1/2 tab daily for 2 days PREDNISONE 20 MG TAB 021767 PREDNISON E Inactive BACTRIM DS 800-160 MG TABS 1 po BID x 7 days 0 BACTRIM DS 800-160 MG TABS 297163 SULFAMETHOXAZOLE-TRIMETHOPRIM Inactive CIPRO 500 MG TAB 1 tablet by mouth twice daily CIPRO 500 MG TAB 708631 CIPROFLOXACIN HCL Inactive AZITHROMYCIN 250 MG TABS 2 po qd x 1 day, then 1 po qd x 4 days AZITHROMYCIN 250 MG TABS 141725 AZITHROMYCIN Inactiv e FLAGYL 500 MG TAB 1 tablet by mouth bid FLAGYL 500 MG TAB 200108 METRONIDAZOLE Inactive AZITHROMYCIN 250 MG TABS 2 po qd x 1 day, then 1 po qd x 4 days AZITHROMYCIN 250 MG TABS 397560 AZITHROMYCIN Inactiv e AMOXICILLIN 500 MG ORAL CAPS 2 po BID x 10 days 09/12 AMOXICILLIN 500 MG ORAL CAPS 099151 AMOXICILLIN Inactive Immunizations Vaccine Administration Date Value [...] PANEL - Chemistry cholesterol, serum 192 mg/dL 294-543 8277/02/20 HDL cholesterol, serum 31 mg/dL > OR [...] 11 .0-15.0 platelet count 218 THOUSAND/UL 10*3/mm3 609-608 9346/02/20 mean platelet volume 9.7 fL 7.5-12.5 Encounters Code Encounter Date Provider Facility CPT-71050 Level 3 Est. Patient 13:05:44 CDT Paul Hamlin MD [facility] CPT-78409 Level 3 Est. Patient 11:29:55 CDT Checo Conklin MD [facility] CPT-91628 Level 4 Est. Patient 11:08:12 SURGEON ASSISTANT Checo Conklin MD [facility] CPT-90547 Level 4 Est. Patient 16:06:48 SURGEON ASSISTANT Checo Conklin MD [facility] CPT-29033 Level 3 Est. Patient 09:11:49 CDT Efren almendarez APRN [facility] CPT-17456 Level 2 Est. Patient 19:53:27 CDT Tanner hill MD [facility] CPT-46825 Level 3 Est. Patient 09:15:34 CDT Efren almendarez [facility] CPT-91100 Level 3 Est. Patient 11:28:51 SURGEON ASSISTANT Efren almendarez [facility] CPT-94707 Level 4 Est. Patient 13:55:46 SURGEON ASSISTANT Checo Conklin MD [facility] CPT-66298 Level 4 Est. Patient 17:10:53 CDT Checo Conklin MD [facility] CPT-63143 Level 3 Est. Patient 15:56:22 CDT Checo Conklin MD [facility] CPT-98187 Level 3 Est. Patient 15:29:07 CDT Checo Conklin MD [facility] CPT-36603 Level 3 Est. Patient 14:38:41 CDT Checo Conklin MD [facility] CPT-91109 Level 3 Est. Patient 15:22:03 SURGEON ASSISTANT Thomas reynolds DO [facility] CPT-28236 Level 3 Est. Patient 13:34:17 SURGEON ASSISTANT Checo Conklin MD [facility]-36288 Level 3 Est. Patient 12:29:32 CDT Dangelo arroyo MD [facility]-82123 Level 3 Est. Patient 16:53:02 CDT Checo Conklin MD [facility] CPT-91303 Level 3 Est. Patient 16:37:13 CDT Checo Conklin MD [facility] CPT-17107 Level 3 Est. Patient 16:16:59 CDT Paul Hamlin MD [facility]-31540 Level 3 Est. Patient 14:20:13 CDT Dangelo arroyo MD [facility]-71899 Level 4 Est. Patient 11:29:33 CDT Checo Conklin MD [facility] CPT-63377 Level 3 Est. Patient 17:08:31 CDT Checo Conklin MD [facility] CPT-80254 Level 3 Est. Patient 16:50:42 SURGEON ASSISTANT Checo Conklin MD [facility] CPT-54037 Level 4 Est. Patient 09:26:08 SURGEON ASSISTANT Checo Conklin MD [facility] CPT-99013 Level 3 Est. Patient 11:37:10 CDT Checo Conklin MD [facility] CPT-41626 Level 4 Est. Patient 14:07:38 CDT Checo Conklin MD [facility] CPT-81846 Level 3 Est. Patient 09:54:41 CDT Checo Conklin MD [facility] CPT-83563 Level 3 Est. Patient 11:10:54 CDT Paul Hmalin MD [facility] CPT-42455 Level 3 Est. Patient 14:16:56 SURGEON ASSISTANT Checo Conklin MD [facility] CPT-98978 Level 3 Est. Patient 11:04:11 SURGEON ASSISTANT Checo Conklin MD [facility] CPT-26332 Level 3 Est. Patient 17:09:26 CDT Dangelo arroyo MD [facility] CPT-73868 Level 3 Est. Patient 16:54:37 CDT Checo Conklin MD [facility] Procedures Code Procedure Name Date Entry Date Standard Desc ription CPT-65364 UA w micro - LAB USE ONLY 17:06:46 CDT 2015 CPT-21574 BHCG Qual - LAB USE ONLY 17:06:46 CDT 05/06 CPT-35958 CMP - LAB USE ONLY 17:06:46 CDT CPT-29021 CBC with Diff - LAB USE ONLY 17:06:45 CDT 2 CPT-80657 Venipuncture Draw Fee 17:06:45 CDT CPT-LR Lesion Removal 19:53:27 CDT CPT-OV Office Visit 11:31:28 CDT CPT-46187 Tubersol 09:39:29 CDT CPT-J2550 Phenergan 25 mg (Promethazine) 13:59:02 SURGEON ASSISTANT CPT-J1885 Toradol 60 mg (Ketorolac) 13:59:02 SURGEON ASSISTANT 2012
--- OUTSIDE RECORDS SUMMARY | 2019-09-29 02:06 | XMS REPORT | Clinical Summary ---
Author Author Admin, Bethany Ayala [facility] Address Unknown Phone Unavailable Allergies, Adverse [...] PO tid PRN nausea 12/29 METOCLOPRAMIDE HCL 15234306773 Active Cheoc Conklin MD Act mike TERBINAFINE HCL 250 MG ORAL TABS take one table PO one time daily 2 TERBINAFINE HCL 05068704830 Active Checo Conklin MD Active BUPROPION HCL ER (SR) 100 MG ORAL [id number] take one t ablet by mouth one time daily for one week then take 1 two times daily B UPROPION HCL 75632511878 Active Checo Conklin MD Active TRAVEL SICKNESS 25 MG ORAL CHEW chew and swallow one t ablet every 6 hours as needed MECLIZINE HCL 07760297260 Active Checo Conklin MD Active SUMATRIPTAN SUCCINATE 100 MG ORAL TABS Take one PRN for migrane 201 11/19/14 SUMATRIPTAN SUCCINATE 09691876628 Active Checo Conklin MD Active COMPRO 25 MG RECTAL SUPP insert or apply one supposit ory rectally as directed every 12 hours as needed for nausea PROCHLORPERAZINE 0 0534142132 Active Checo Conklin MD Active ONDANSETRON [address] one tablet on tongue and allow to dissolve every 6 hours as needed for vomitting ONDANSETRON 658 06799236 Active Checo Conklin MD Active DICLOFENAC SODIUM 75 MG TBEC 1 tablet by mouth twice daily P RN Knee pain DICLOFENAC SODIUM 39082393431 No Longer Active Checo Conklin MD Active HYDROCODONE-ACETAMINOPHEN 5-325 MG TABS 0.5 to 1 tab b y mouth every 6 hours as needed HYDROCODONE-ACETAMINOPHEN 42565048697 Active Checo Conklin MD Active LAMISIL 250 MG TAB 1 po qd TERBINAFINE HCL 548 54077245 No Longer Active Checo Conklin MD Active REGLAN 10 MG TAB 1 po TID PRN Nausea METOCLOPRA MIDE HCL 78894857609 No Longer Active Checo Conklin MD Active CELEXA 20 MG TABS 1 tablet by mouth daily CITALOPRAM HYDROBROMIDE 84191875030 No Longer Active Checo Conklin MD Activ e AZITHROMYCIN 250 MG TABS 2 po qd x 1 day, then 1 po qd x 4 days AZITHROMYCIN 41370618169 No Longer Active Checo Conklin MD Active HYDROCODONE-ACETAMINOPHEN 5-325 MG TABS 1 po q 6hr PRN Pain 2013 HYDROCODONE-ACETAMINOPHEN 40859017204 No Longer Active Lenora Conklin MD Active PHENAZOPYRIDINE HCL 200 MG TABS take 1 tab po TID for bladder pa in PHENAZOPYRIDINE HCL 15745716904 No Longer Active Checo Joshua Active CIPRO 500 MG TAB 1 tablet by mouth twice daily CIPROFLOXACIN HCL 68983122383 No Longer Active Dangelo Rangel MD Active HYDROCODONE-ACETAMINOPHEN 5-325 MG TABS 1/2 to 1 po q 4 hour s prn cough HYDROCODONE-ACETAMINOPHEN 11042508564 No Longer Activ e Dangelo Rangel MD Active BACTRIM DS 800-160 MG TABS 1 po BID x 7 days 0 SULFAMETHOXAZOLE-TRIMETHOPRIM 82343935854 No Longer Active Checo Conklin MD Active PREDNISONE 20 MG TAB 2 tabs daily for 3 days, 1 t ab daily for 3 days, 1/2 tab daily for 2 days PREDNISONE 11781897129 No Longer Active Checo Conklin MD Active TRIAMCINOLONE ACETONIDE 0.1 % OINT Apply to affected a reas TID for up to 2 weeks TRIAMCINOLONE ACETONIDE 39036983311 No Longer A ctive Checo Conklin MD Active CEFDINIR 300 MG CAPS by mouth twice a day CEFDI JAZZY 21206661520 No Longer Active Dangelo Rangel MD Active BUPROPION HCL (SMOKING DETER) 150 MG [id number] 1 a day for 1 week then 1 twice a day BUPROPION HCL (SMOKING DETER) 76948631885 No Lo nger Active Checo Conklin MD Active SIMVASTATIN 20 MG TABS 1 po qd SIMVASTATIN 8388067171 5 Active Checo Conklin MD Active CHANTIX STARTING MONTH KARTHIK 0.5 MG X 11 & 1 MG X 42 TAB S 0.5mg daily for 3 days, then 0.5mg BID for 4 days, then 1mg BID VARENICLINE TARTRATE 93350950453 No Longer Active Checo Conklin MD Activ e XANAX 0.5 MG TABS 1 po BID PRN anxiety ALPRAZOLAM 00396765822 Active Checo Conklin MD Active CONCERTA 18 MG CR-TABS 1 po q a.m. METHYLPHENID ATE HCL 06421602644 No Longer Active Checo Conklin MD Active AMBIEN 5 MG TAB 1 po qHS PRN Insomnia ZOLPIDEM TARTRATE 65064230155 Active Checo Conklin MD Active TRAZODONE HCL 100 MG TAB 0.5 to 1 po qHS PRN Insomnia TRAZODONE HCL 43475781746 No Longer Active Checo Conklin MD Acti ve FIORICET 325-50-40 MG TAB 1 tablet by mouth four times daily as needed [id number] 12603534805 No Longer Active Checo Conklin MD Active PHENERGAN CREAM* 25mg applied to wrist q6hr PRN Nausea PHENERGAN CREAM* No Longer Active Checo Conklin MD A ctive FLONASE 50 MCG/ACT SUSP 1 spray each nostril am and hs FLUTICASONE PROPIONATE 34237934893 No Longer Active Checo Conklin MD Activ e ANTIPYRINE-BENZOCAINE 5.4-1.4 % SOLN 1-2 drops in affected ear BENZOCAINE-ANTIPYRINE 41598897222 No Longer Active Checo Conklin MD Active CEFDINIR 300 MG CAPS 1 po bid CEFDINIR 00212121 120 No Longer Active Checo Conklin MD Active PREDNISONE 20 MG TAB 2 tabs daily for 3 days, 1 t ab daily for 3 days, 1/2 tab daily for 2 days PREDNISONE 65048040050 No Longer Active Aracelis Conklin MD Active AZITHROMYCIN 250 MG TABS 2 po qd x 1 day, then 1 po qd x 4 days AZITHROMYCIN 96760861975 No Longer Active Checo Conklin MD Active PREDNISONE 20 MG TAB 2 tabs daily for 3 days, 1 t ab daily for 3 days, 1/2 tab daily for 2 days PREDNISONE 65877654856 No Longer Active Checo Conklin MD Active ZITHROMAX Z-KARTHIK 250 MG TABS 2 today, then 1 daily for 4 days 201 09/18/28 AZITHROMYCIN 13188267322 No Longer Active Paul Hamlin MD Active FOCALIN XR 10 MG [id number] 1 po q a.m. D EXMETHYLPHENIDATE HCL 63895651854 No Longer Active Paul Hamlin MD Activ e PERCOCET 10-325 MG TABS 1 tablet every 6 hours as needed for pain OXYCODONE-ACETAMINOPHEN 15495050325 No Longer Active Paul Hamlin MD Active LORTAB 5 5-500 MG TABS 1/2 to 1 tablet by mouth flaquito ry 4 hours as needed for pain HYDROCODONE-ACETAMINOPHEN 21845865903 No Longer Active Checo Conklin MD Active FOCALIN XR 15 MG [id number] 1 po q a.m. D EXMETHYLPHENIDATE HCL 99311206705 No Longer Active Checo Conklin MD Activ e ZOFRAN ODT 4 MG TBDP 1 po q6hr PRN Nausea ONDAN SETRON 95100420111 No Longer Active Checo Conklin MD Active PERCOCET 5-325 MG TABS 1 tablet by mouth every 6 hours as needed OXYCODONE-ACETAMINOPHEN 72516997174 No Longer Active Checo Conklin MD Active PYRIDIUM 200 MG TABS take 1 tab po TID prn urinary pain. 0 PHENAZOPYRIDINE HCL 35387803703 No Longer Active Checo Conklin MD Active FLUCONAZOLE 150 MG TABS take 1 tab po qday once 0 04/06 FLUCONAZOLE 88655588253 No Longer Active Dangelo Rangel MD Acti ve CIPRO 500 MG TAB 1 tablet by mouth twice daily CIPROFLOXACIN HCL 16318020281 No Longer Active Dangelo Rangel MD Active PYRIDIUM 200 MG TABS take 1 tab po TID prn urinary pain. 0 PYRIDIUM 200 MG TABS 3517011 PHENAZOPYRIDINE HCL Inactive PERCOCET 5-325 MG TABS 1 tablet by mouth every 6 hours as needed PERCOCET 5-325 MG TABS 8345723 OXYCODONE-ACETAMINOPHEN I nactive ZOFRAN ODT 4 MG TBDP 1 po q6hr PRN Nausea ZOFRAN ODT 4 MG TBDP 175252 ONDANSETRON Inactive FOCALIN XR 15 MG [id number] 1 po q a.m. F OCALIN XR 15 MG [id number] DEXMETHYLPHENIDATE HCL Inactive LORTAB 5 5-500 MG TABS 1/2 to 1 tablet by mouth flaquito ry 4 hours as needed for pain LORTAB 5 5-500 MG TABS HYDROCODONE-A CETAMINOPHEN Inactive PERCOCET 10-325 MG TABS 1 tablet every 6 hours as needed for pain PERCOCET 10-325 MG TABS 0425317 OXYCODONE-ACETAMINOPHEN Inactive FOCALIN XR 10 MG [id number] 1 po q a.m. F OCALIN XR 10 MG [id number] DEXMETHYLPHENIDATE HCL Inactive CEFDINIR 300 MG CAPS 1 po bid CEFDINIR 300 MG CAPS 20 0346 CEFDINIR Inactive ANTIPYRINE-BENZOCAINE 5.4-1.4 % SOLN 1-2 drops in affected ear ANTIPYRINE-BENZOCAINE 5.4-1.4 % SOLN 374100 BENZOCAINE-ANTIPYRINE I nactive FLONASE 50 MCG/ACT SUSP 1 spray each nostril am and hs FLONASE 50 MCG/ACT SUSP 483004 FLUTICASONE PROPIONATE Inactive PHENERGAN CREAM* 25mg applied to wrist q6hr PRN Nausea PHENERGAN CREAM* Inactive FIORICET 325-50-40 MG TAB 1 tablet by mouth four times daily as needed FIORICET 325-50-40 MG TAB ACETAMINOPHEN-C AFF-BUTALBITAL Inactive TRAZODONE HCL 100 MG TAB 0.5 to 1 po qHS PRN Insomnia TRAZODONE HCL 100 MG TAB 042912 TRAZODONE HCL Inactive CONCERTA 18 MG CR-TABS [...] s prn cough HYDROCODONE-ACETAMINOPHEN 5-325 MG TABS 404454 HYDROCODONE-ACETAMINOPHEN Inactive PHENAZOPYRIDINE HCL 200 MG TABS take 1 tab po TID for bladder pa in PHENAZOPYRIDINE HCL 200 MG TABS 2003859 PHENAZOPYRIDINE HCL Inactive HYDROCODONE-ACETAMINOPHEN 5-325 MG TABS 1 po q 6hr PRN Pain 2013 HYDROCODONE-ACETAMINOPHEN 5-325 MG TABS 420865 HYDROCODONE-ACETAMINOPHEN Inactive CELEXA 20 MG TABS 1 tablet by mouth daily CELEXA 20 MG TABS 705736 CITALOPRAM HYDROBROMIDE Inactive REGLAN 10 MG TAB 1 po TID PRN Nausea REGLAN 10 MG TAB 494326 METOCLOPRAMIDE HCL Inactive LAMISIL 250 MG TAB 1 po qd LAMISIL 250 MG TAB 986279 TERBINAFINE HCL Inactive DICLOFENAC SODIUM 75 MG TBEC 1 tablet by mouth twice daily P RN Knee pain DICLOFENAC SODIUM 75 MG TBEC 255114 DICLOFENAC S ODIUM Inactive CIPRO 500 MG TAB 1 tablet by mouth twice daily CIPRO 500 MG TAB 646994 CIPROFLOXACIN HCL Inactive FLUCONAZOLE 150 MG TABS take 1 tab po qday once 04/06 FLUCONAZOLE 150 MG TABS 694617 FLUCONAZOLE Inactive ZITHROMAX Z-KARTHIK 250 MG TABS 2 today, then 1 daily for 4 days 201 09/18/28 ZITHROMAX Z-KARTHIK 250 MG TABS 4802001 AZITHROMYCIN Inac tive PREDNISONE 20 MG TAB 2 tabs daily for 3 days, 1 t ab daily for 3 days, 1/2 tab daily for 2 days PREDNISONE 20 MG TAB 159319 PREDNISON E Inactive AZITHROMYCIN 250 MG TABS 2 po qd x 1 day, then 1 po qd x 4 days AZITHROMYCIN 250 MG TABS 2356503 AZITHROMYCIN Inactiv e PREDNISONE 20 MG TAB 2 tabs daily for 3 days, 1 t ab daily for 3 days, 1/2 tab daily for 2 days PREDNISONE 20 MG TAB 385390 PREDNISON E Inactive CEFDINIR 300 MG CAPS by mouth twice a day CEFDINIR 300 MG CAPS 030706 CEFDINIR Inactive TRIAMCINOLONE ACETONIDE 0.1 % OINT Apply to affected a reas TID for up to 2 weeks TRIAMCINOLONE ACETONIDE 0.1 % OINT 118387 6 TRIAMCINOLONE ACETONIDE Inactive PREDNISONE 20 MG TAB 2 tabs daily for 3 days, 1 t ab daily for 3 days, 1/2 tab daily for 2 days PREDNISONE 20 MG TAB 978163 PREDNISON E Inactive BACTRIM DS 800-160 MG TABS 1 po BID x 7 days 0 BACTRIM DS 800-160 MG TABS SULFAMETHOXAZOLE-TRIMETHOPRIM Inactive CIPRO 500 MG TAB 1 tablet by mouth twice daily CIPRO 500 MG TAB 230822 CIPROFLOXACIN HCL Inactive AZITHROMYCIN 250 MG TABS 2 po qd x 1 day, then 1 po qd x 4 days AZITHROMYCIN 250 MG TABS 0046943 AZITHROMYCIN Inactiv e Immunizations Vaccine Administration Date [...] Panel - Chemistry sodium, serum 139 mmol/L 867-028 9727/10/24 potassium, serum 4.1 mmol/L 3.5-5.2 chloride, serum [...] 0.80 mg/dL 0.00-1.00 cholesterol, serum 147 mg/dL 017-256 6619/10/24 triglyceride, serum, fasting 112 mg/dL 30-200 HDL [...] 5.0-8.5 Encounters Code Encounter Date Provider Facility CPT-52002 Level 3 Est. Patient 15:29:07 CDT Checo Conklin MD [facility] CPT-94258 Level 3 Est. Patient 14:38:41 CDT Checo Conklin MD [facility] CPT-42590 Level 3 Est. Patient 15:22:03 [employer]ILLET SHEAR[employer] Thomas reynolds DO [facility] CPT-99589 Level 3 Est. 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 Patient 12:29:32 CDT Dangelo arroyo MD [facility] CPT-62055 Level 3 Est. Patient 16:53:02 CDT Checo Conklin MD [facility] CPT-67127 Level 3 Est. Patient 16:37:13 CDT Checo Conklin MD [facility] CPT-21861 Level 3 Est. Patient 16:16:59 CDT Paul Hamlin MD [facility] CPT-92434 Level 3 Est. Patient 14:20:13 CDT Dangelo arroyo MD [facility] CPT-26504 Level 4 Est. Patient 11:29:33 CDT Checo Conklin MD [facility] CPT-76332 Level 3 Est. Patient 17:08:31 CDT Checo Conklin MD [facility] CPT-47052 Level 3 Est. 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 Patient 09:26:08 BILLET SHEARER Checo Conklin MD [facility] CPT-03919 Level 3 Est. Patient 11:37:10 CDT Checo Conklin MD [facility] CPT-77605 Level 4 Est. Patient 14:07:38 CDT Checo Conklin MD [facility] CPT-04669 Level 3 Est. Patient 09:54:41 CDT Checo Conklin MD [facility] CPT-29059 Level 3 Est. Patient 11:10:54 CDT Paul Hamlin MD [facility] CPT-56584 Level 3 Est. 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 Patient 11:04:11 BILLET SHEARER Checo Conklin MD [facility] CPT-49550 Level 3 Est. Patient 17:09:26 CDT Dangelo arroyo MD [facility] CPT-50753 Level 3 Est. Patient 16:54:37 CDT Checo Conklin MD [facility] Procedures Code Procedure Name Date Entry Date Standard Desc ription CPT-OV Office Visit 11:31:28 CDT CPT-59473 Tubersol 09:39:29 CDT CPT-J2550 Phenergan 25 mg (Promethazine) 13:59:02 BILLET SHEARER CPT-J1885 Toradol 60 mg (Ketorolac) 13:59:02 BILLET SHEARER 2012
--- OUTSIDE RECORDS SUMMARY | 2019-09-29 02:07 | XMS REPORT | Clinical Summary ---
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 Pylori AMOXICILLIN 85699624515 Active Corry Méndez LPN Active PAROXETINE HCL 20 MG ORAL TABLET 1.5 po qd PAR OXETINE HCL 02216410224 Active Checo Conklin MD Active FLUTICASONE PROPIONATE 50 MCG/ACT NASAL SUSPENSION 2 s prays/nostril qd PRN Congestion/Allergies FLUTICASONE PROPIONATE 2605192120 9 No Longer Active Checo Conklin MD Active AMOXICILLIN 500 MG ORAL CAPSULE 2 po BID x 10 days 201 01/15/27 AMOXICILLIN 15895343850 No Longer Active Checo Conklin MD Activ e MIRALAX ORAL POWDER 8.5 to 17g po qd PRN Constipation POLYETHYLENE GLYCOL 3350 46920907273 Active Checo Conklin MD Active CLARITIN 10 MG ORAL TABLET 1 tablet by mouth daily as needed for allergies LORATADINE 97840344781 No Longer Active Checo Ortiz MD Active BACTRIM DS 800-160 MG ORAL TABLET 1 tab by mouth twice daily 201 12/19/26 TRIMETHOPRIM-SULFAMETHOXAZOLE 70561981581 No Longer Active Ragini Carrillo MD Active DIFLUCAN 150 MG ORAL TABLET 1 tablet by mouth qod 2015 FLUCONAZOLE 83268057707 No Longer Active 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 DEXMETHYLPHENIDATE HCL 53546331932 Active Checo Conklin MD Active MAGNESIUM CITRATE 1.745 GM/30ML ORAL SOLUTION 150ml po BID P RN Constipation MAGNESIUM CITRATE 44430093872 No Longer Active Checo Conklin MD Active BACTROBAN 2 % EXTERNAL CREAM Apply to affected area BID for up to 10 days MUPIROCIN CALCIUM 41998016924 No Longer Active Checo Conklin MD Active HYDROCODONE-ACETAMINOPHEN 5-325 MG ORAL TABLET 1 tab b y mouth every 6 hours as needed HYDROCODONE-ACETAMINOPHEN 40381340631 No Longer Active Checo Conklin MD Active IBUPROFEN 800 MG ORAL TABLET 1 tab every 8 hours with food 03/20 IBUPROFEN 05254199448 No Longer Active Checo Conklin MD Active DIFLUCAN 150 MG ORAL TABLET 1 tablet by mouth if neede d, hold until symptoms start FLUCONAZOLE 98089068575 No Longer Active Checo Conklin MD Active BACTRIM DS 800-160 MG ORAL TABLET 1 tab by mouth twice daily 201 11/23/03 TRIMETHOPRIM-SULFAMETHOXAZOLE 10229839273 No Longer Active K bernice Méndez LPN Active HYDROCODONE-ACETAMINOPHEN 5-325 MG ORAL TABLET 0.5 to 1 tab by mouth every 6 hours as needed HYDROCODONE-ACETAMINOPHEN 50686282642 No Longer Active Checo Conklin MD Active ONDANSETRON 8 MG ORAL TABLET DISINTEGRATING place one tablet on tongue and allow to dissolve every 6 hours as needed for vomitting ONDANSETRON 36078856140 No Longer Active Checo Conklin MD Activ e COMPRO 25 MG RECTAL SUPPOSITORY insert or apply one garza ppository rectally as directed every 12 hours as needed for nausea PROCHLORPERAZINE 76123626991 No Longer Active Checo Conklin MD A ctive SUMATRIPTAN SUCCINATE 100 MG ORAL TABLET Take one PRN for migran e SUMATRIPTAN SUCCINATE 68502524460 No Longer Active Checo Conklin MD Active TRAVEL SICKNESS 25 MG ORAL TABLET CHEWABLE chew and sw allow one tablet every 6 hours as needed MECLIZINE HCL 43033371684 No Longer A ctive Checo Conklin MD Active BUPROPION HCL ER (SR) 100 MG ORAL TABLET EXTENDED RELE ASE 12 HOUR take one tablet by mouth one time daily for one week then take 1 two times daily BUPROPION HCL 75590118638 No Longer Active Checo gallagher MD Active TERBINAFINE HCL 250 MG ORAL TABLET take one table PO one time da moises TERBINAFINE HCL 44569360151 No Longer Active Checo Conklin MD Active METOCLOPRAMIDE HCL 10 MG ORAL TABLET take one PO tid PRN nausea METOCLOPRAMIDE HCL 85956482446 No Longer Active Checo Conklin MD Active DICLOFENAC SODIUM 75 MG ORAL TABLET DELAYED RELEASE 1 tablet by mouth twice daily PRN Knee pain DICLOFENAC SODIUM 32471957383 No Longer Active Checo Conklin MD Active LAMISIL 250 MG ORAL TABLET 1 po qd TERBINAFI NE HCL 41464575495 No Longer Active Checo Conklin MD Active REGLAN 10 MG ORAL TABLET 1 po TID PRN Nausea 3 METOCLOPRAMIDE HCL 61728070399 No Longer Active Checo Conklin MD Active CELEXA 20 MG ORAL TABLET 1 tablet by mouth daily 09/26 CITALOPRAM HYDROBROMIDE 84055859313 No Longer Active Checo Conklin MD Active AZITHROMYCIN 250 MG ORAL TABLET 2 po qd x 1 day, then 1 po q d x 4 days AZITHROMYCIN 46125319309 No Longer Active Checo Ortiz MD Active HYDROCODONE-ACETAMINOPHEN 5-325 MG ORAL TABLET 1 po q 6hr PRN Pa in HYDROCODONE-ACETAMINOPHEN 55304701297 No Longer Active Lenora Conklin MD Active PHENAZOPYRIDINE HCL 200 MG ORAL TABLET take 1 tab po TID for bladder pain PHENAZOPYRIDINE HCL 83182633296 No Longer Active Joe Conklin MD Active CIPRO 500 MG ORAL TABLET 1 tablet by mouth twice daily CIPROFLOXACIN HCL 54408263050 No Longer Active Dangelo Rangel MD Active HYDROCODONE-ACETAMINOPHEN 5-325 MG ORAL TABLET 1/2 to 1 po q 4 hours prn cough HYDROCODONE-ACETAMINOPHEN 53899472607 No Longer Activ candy Rangel MD Active BACTRIM DS 800-160 MG ORAL TABLET 1 po BID x 7 days 29/04/10 SULFAMETHOXAZOLE-TRIMETHOPRIM 81956284059 No Longer Active Checo Conklin MD Active PREDNISONE 20 MG ORAL TABLET 2 tabs daily for 3 days, 1 tab daily for 3 days, 1/2 tab daily for 2 days PREDNISONE 53679741031 No Longer Active Checo Conklin MD Active TRIAMCINOLONE ACETONIDE 0.1 % EXTERNAL OINTMENT Apply to affected areas TID for up to 2 weeks TRIAMCINOLONE ACETONIDE 27248344730 No Longer Active Checo Conklin MD Active CEFDINIR 300 MG ORAL CAPSULE by mouth twice a day 2013 CEFDINIR 75252380492 No Longer Active Dangelo Rangel MD Acti ve BUPROPION HCL ER (SMOKING DET) 150 MG ORAL TABLET EXTE NDED RELEASE 12 HOUR 1 a day for 1 week then 1 twice a day BUPROPION HCL (SMOKING DETER) 37955036922 No Longer Active Checo Conklin MD Active SIMVASTATIN 20 MG ORAL TABLET 1 po qd SIMVASTAT IN 80076671463 Active Checo Conklin MD Active CHANTIX STARTING MONTH KARTHIK 0.5 MG X 11 & 1 MG X 42 ORA L TABLET 0.5mg daily for 3 days, then 0.5mg BID for 4 days, then 1mg BID VARENICLINE TARTRATE 78188561678 No Longer Active Checo Conklin MD Activ e XANAX 0.5 MG ORAL TABLET 1 po BID PRN anxiety A LPRAZOLAM 23302188527 Active Checo Conklin MD Active CONCERTA 18 MG ORAL TABLET EXTENDED RELEASE 1 po q a.m. METHYLPHENIDATE HCL 93555396159 No Longer Active Checo Conklin MD Active AMBIEN 5 MG ORAL TABLET 1 po qHS PRN Insomnia Z OLPIDEM TARTRATE 07293433465 Active Checo Conklin MD Active TRAZODONE HCL 100 MG ORAL TABLET 0.5 to 1 po qHS PRN Insomnia 20 30/07/08 TRAZODONE HCL 73687894152 No Longer Active Checo Conklin MD Active FIORICET 325-50-40 MG TAB 1 tablet by mouth four times daily as needed [id number] 22034821491 No Longer Active Checo Conklin MD Active PHENERGAN CREAM* 25mg applied to wrist q6hr PRN Nausea PHENERGAN CREAM* No Longer Active Checo Conklin MD A ctive FLONASE 50 MCG/ACT NASAL SUSPENSION 1 spray each nostril am and hs FLUTICASONE PROPIONATE 61372040322 No Longer Active Checo Conklin MD Active ANTIPYRINE-BENZOCAINE 5.4-1.4 % OTIC SOLUTION 1-2 drops in affec yohannes ear BENZOCAINE-ANTIPYRINE 60188697761 No Longer Active Checo Conklin MD Active CEFDINIR 300 MG ORAL CAPSULE 1 po bid CEFDINIR 88301338734 No Longer Active Checo Conklin MD Active PREDNISONE 20 MG ORAL TABLET 2 tabs daily for 3 days, 1 tab daily for 3 days, 1/2 tab daily for 2 days PREDNISONE 06170549395 No Longer Active Checo Conklin MD Active AZITHROMYCIN 250 MG ORAL TABLET 2 po qd x 1 day, then 1 po q d x 4 days AZITHROMYCIN 25147302298 No Longer Active Checo Ortiz MD Active PREDNISONE 20 MG ORAL TABLET 2 tabs daily for 3 days, 1 tab daily for 3 days, 1/2 tab daily for 2 days PREDNISONE 05598668653 No Longer Active Checo Conklin MD Active ZITHROMAX Z-KARTHIK 250 MG ORAL TABLET 2 today, then 1 daily for 4 d ays AZITHROMYCIN 05713603535 No Longer Active Paul Hamlin MD Active FOCALIN XR 10 MG ORAL CAPSULE EXTENDED RELEASE 24 HOUR 1 po q a. m. DEXMETHYLPHENIDATE HCL 67684227689 No Longer Active Paul Hamlin MD Active PERCOCET 10-325 MG ORAL TABLET 1 tablet every 6 hours as needed for pain OXYCODONE-ACETAMINOPHEN 16350861296 No Longer Active Paul Hamlin MD Active LORTAB 5-500 MG ORAL TABLET 1/2 to 1 tablet by mouth e very 4 hours as needed for pain HYDROCODONE-ACETAMINOPHEN 48591927955 No Longer Active Checo Conklin MD Active FOCALIN XR 15 MG ORAL CAPSULE EXTENDED RELEASE 24 HOUR 1 po q a. m. DEXMETHYLPHENIDATE HCL 15181085581 No Longer Active Checo Conklin MD Active ZOFRAN ODT 4 MG ORAL TABLET DISINTEGRATING 1 po q6hr PRN Nausea ONDANSETRON 49003139586 No Longer Active Checo Conklin MD Active PERCOCET 5-325 MG ORAL TABLET 1 tablet by mouth every 6 hour s as needed OXYCODONE-ACETAMINOPHEN 25700636954 No Longer Active Checo Conklin MD Active PYRIDIUM 200 MG ORAL TABLET take 1 tab po TID prn urinary pain. PHENAZOPYRIDINE HCL 02764533529 No Longer Active Checo Joshua Active FLUCONAZOLE 150 MG ORAL TABLET take 1 tab po qday once FLUCONAZOLE 88255572334 No Longer Active Dangelo Rangel MD Acti ve CIPRO 500 MG ORAL TABLET 1 tablet by mouth twice daily CIPROFLOXACIN HCL 12756751788 No Longer Active Dangelo Rangel MD Active PYRIDIUM 200 MG ORAL TABLET take 1 tab po TID prn urinary pain. PYRIDIUM 200 MG ORAL TABLET 7003689 PHENAZOPYRIDINE HCL Inactive PERCOCET 5-325 MG ORAL TABLET 1 tablet by mouth every 6 hour s as needed PERCOCET 5-325 MG ORAL TABLET 8590939 OXYCODONE-ACETAMINOPHEN Inactive ZOFRAN ODT 4 MG ORAL TABLET DISINTEGRATING 1 po q6hr PRN Nausea ZOFRAN ODT 4 MG ORAL TABLET DISINTEGRATING 911232 ONDAN SETRON Inactive FOCALIN XR 15 MG ORAL CAPSULE EXTENDED RELEASE 24 HOUR 1 po q a. m. FOCALIN XR 15 MG ORAL CAPSULE EXTENDED RELEASE 24 HOUR DEXMETHYLPHENIDATE HCL Inactive LORTAB 5-500 MG ORAL TABLET 1/2 to 1 tablet by mouth e very 4 hours as needed for pain LORTAB 5-500 MG ORAL TABLET 788485 HYDROCODONE-ACETAMINOPHEN Inactive PERCOCET 10-325 MG ORAL TABLET 1 tablet every 6 hours as needed for pain PERCOCET 10-325 MG ORAL TABLET 7107176 OXYCODONE-ACETAMI NOPHEN Inactive FOCALIN XR 10 MG ORAL CAPSULE EXTENDED RELEASE 24 HOUR 1 po q a. m. FOCALIN XR 10 MG ORAL CAPSULE EXTENDED RELEASE 24 HOUR DEXMETHYLPHENIDATE HCL Inactive CEFDINIR 300 MG ORAL CAPSULE 1 po bid CEFDINI R 300 MG ORAL CAPSULE 971433 CEFDINIR Inactive ANTIPYRINE-BENZOCAINE 5.4-1.4 % OTIC SOLUTION 1-2 drops in affec yohannes ear ANTIPYRINE-BENZOCAINE 5.4-1.4 % OTIC SOLUTION 469668 BENZOCAINE-ANTIPYRINE Inactive FLONASE 50 MCG/ACT NASAL SUSPENSION 1 spray each nostril am and hs FLONASE 50 MCG/ACT NASAL SUSPENSION 7961202 FLUTICASONE PROPIONATE I nactive PHENERGAN CREAM* 25mg applied to wrist q6hr PRN Nausea PHENERGAN CREAM* Inactive FIORICET 325-50-40 MG TAB 1 tablet by mouth four times daily as needed FIORICET 325-50-40 MG TAB ACETAMINOPHEN-C AFF-BUTALBITAL Inactive TRAZODONE HCL 100 MG ORAL TABLET 0.5 to 1 po qHS PRN Insomnia 20 30/07/08 TRAZODONE HCL 100 MG ORAL TABLET 891171 TRAZODONE HCL Inactive CONCERTA 18 MG ORAL [...] cough HYDROCODONE-ACETAMINOPHEN 5-325 MG ORAL TABLET 8 05665 HYDROCODONE-ACETAMINOPHEN Inactive PHENAZOPYRIDINE HCL 200 MG ORAL TABLET take 1 tab po TID for bladder pain PHENAZOPYRIDINE HCL 200 MG ORAL TABLET 3383359 PHENAZOPYRIDINE HCL Inactive HYDROCODONE-ACETAMINOPHEN 5-325 MG ORAL TABLET 1 po q 6hr PRN Pa in HYDROCODONE-ACETAMINOPHEN 5-325 MG ORAL TABLET 834533 HYDROCODONE-ACETAMINOPHEN Inactive CELEXA 20 MG ORAL TABLET 1 tablet by mouth daily 09/26 CELEXA 20 MG ORAL TABLET 874201 CITALOPRAM HYDROBROMIDE Inactive REGLAN 10 MG ORAL TABLET 1 po TID PRN Nausea 3 REGLAN 10 MG ORAL TABLET 276913 METOCLOPRAMIDE HCL Inactive LAMISIL 250 MG ORAL TABLET 1 po qd L AMISIL 250 MG ORAL TABLET 491481 TERBINAFINE HCL Inactive DICLOFENAC SODIUM 75 MG ORAL TABLET DELAYED RELEASE 1 tablet by mouth twice daily PRN Knee pain DICLOFENAC SODIUM 75 MG ORAL TABLET DELAYED RELEASE 767345 DICLOFENAC SODIUM Inactive METOCLOPRAMIDE HCL 10 MG ORAL TABLET take one PO tid PRN nausea METOCLOPRAMIDE HCL 10 MG ORAL TABLET 726222 METOCLOPRAM ZACH HCL Inactive TERBINAFINE HCL 250 MG ORAL TABLET take one table PO one time da moises TERBINAFINE HCL 250 MG ORAL TABLET 144566 TERBINAFINE H CL Inactive BUPROPION HCL ER [...] SICKNESS 25 M G ORAL TABLET CHEWABLE 052688 MECLIZINE HCL Inactive SUMATRIPTAN SUCCINATE 100 MG ORAL TABLET Take one PRN for migran e SUMATRIPTAN SUCCINATE 100 MG ORAL TABLET 117708 SUMATRIPTAN SUCCINATE Inactive COMPRO 25 MG RECTAL SUPPOSITORY insert or apply one garza ppository rectally as directed every 12 hours as needed for nausea COMPRO 25 MG RECTAL SUPPOSITORY 442359 PROCHLORPERAZINE Inactive ONDANSETRON 8 MG ORAL TABLET DISINTEGRATING place one tablet on tongue and allow to dissolve every 6 hours as needed for vomitting ONDANSETRON 8 MG ORAL TABLET DISINTEGRATING 768380 ONDANSETRON Inactive HYDROCODONE-ACETAMINOPHEN 5-325 MG ORAL TABLET 0.5 to 1 tab by mouth every 6 hours as needed HYDROCODONE-ACETAMIN OPHEN 5-325 MG ORAL TABLET 021937 HYDROCODONE-ACETAMINOPHEN Inactive BACTRIM DS 800-160 MG ORAL TABLET 1 tab by mouth twice daily 201 11/23/03 BACTRIM DS 800-160 MG ORAL TABLET 090872 TRIMETHOPRIM-SULFAMETHOXAZOLE Inactive DIFLUCAN 150 MG ORAL TABLET 1 tablet by mouth if neede d, hold until symptoms start DIFLUCAN 150 MG ORAL TABLET 676679 FLUCONAZ OLE Inactive IBUPROFEN 800 MG ORAL TABLET 1 tab every 8 hours with food 03/20 IBUPROFEN 800 MG ORAL TABLET 371890 IBUPROFEN Krupa ctive HYDROCODONE-ACETAMINOPHEN 5-325 MG ORAL TABLET 1 tab b y mouth every 6 hours as needed HYDROCODONE-ACETAMINOPHEN 5-325 MG ORAL TABLET 265171 HYDROCODONE-ACETAMINOPHEN Inactive BACTROBAN 2 % EXTERNAL CREAM Apply to affected area BID for up to 10 days BACTROBAN 2 % EXTERNAL CREAM 800143 MUPIROCIN CA LCIUM Inactive MAGNESIUM CITRATE 1.745 GM/30ML ORAL SOLUTION 150ml po BID P RN Constipation MAGNESIUM CITRATE 1.745 GM/30ML ORAL SOLUTION 10 49511 MAGNESIUM CITRATE Inactive DIFLUCAN 150 MG ORAL TABLET 1 tablet by mouth qod 2015 DIFLUCAN 150 MG ORAL TABLET 971568 FLUCONAZOLE Inactive BACTRIM DS 800-160 MG ORAL TABLET 1 tab by mouth twice daily 201 12/19/26 BACTRIM DS 800-160 MG ORAL TABLET 255047 TRIMETHOPRIM-SULFAMETHOXAZOLE Inactive CLARITIN 10 MG ORAL TABLET 1 tablet by mouth daily as needed for allergies CLARITIN 10 MG ORAL TABLET 449597 LORATADINE I nactive FLUTICASONE PROPIONATE 50 MCG/ACT NASAL SUSPENSION 2 s prays/nostril qd PRN Congestion/Allergies FLUTICASONE PROPION ATE 50 MCG/ACT NASAL SUSPENSION 6665052 FLUTICASONE PROPIONATE Inactive CIPRO 500 MG ORAL TABLET 1 tablet by mouth twice daily CIPRO 500 MG ORAL TABLET 015641 CIPROFLOXACIN HCL Inactive FLUCONAZOLE 150 MG ORAL TABLET take 1 tab po qday once FLUCONAZOLE 150 MG ORAL TABLET 518650 FLUCONAZOLE Inactive ZITHROMAX Z-KARTHIK 250 MG ORAL TABLET 2 today, then 1 daily for 4 d ays ZITHROMAX Z-KARTHIK 250 MG ORAL TABLET 268825 AZITHROMYCIN Inactive PREDNISONE 20 MG ORAL TABLET 2 tabs daily for 3 days, 1 tab daily for 3 days, 1/2 tab daily for 2 days PREDNISONE 20 MG ORAL T ABLET 640401 PREDNISONE Inactive AZITHROMYCIN 250 MG ORAL TABLET 2 po qd x 1 day, then 1 po q d x 4 days AZITHROMYCIN 250 MG ORAL TABLET 186742 AZITHROMY SPARKLE Inactive PREDNISONE 20 MG ORAL TABLET 2 tabs daily for 3 days, 1 tab daily for 3 days, 1/2 tab daily for 2 days PREDNISONE 20 MG ORAL TABLET 187593 PREDNISONE Inactive CEFDINIR 300 MG ORAL CAPSULE by mouth twice a day 2013 CEFDINIR 300 MG ORAL CAPSULE 600127 CEFDINIR Inactive TRIAMCINOLONE ACETONIDE 0.1 % EXTERNAL OINTMENT Apply to affected areas TID for up to 2 weeks TRIAMCINOLONE ACETON ZACH 0.1 % EXTERNAL OINTMENT 1067294 TRIAMCINOLONE ACETONIDE Inactive PREDNISONE 20 MG ORAL TABLET 2 tabs daily for 3 days, 1 tab daily for 3 days, 1/2 tab daily for 2 days PREDNISONE 20 MG ORAL T ABLET 339412 PREDNISONE Inactive BACTRIM DS 800-160 MG ORAL TABLET 1 po BID x 7 days 29/04/10 BACTRIM DS 800-160 MG ORAL TABLET 867917 SULFAMETHOXAZOLE-TRIMETHOP RIM Inactive CIPRO 500 MG ORAL TABLET 1 tablet by mouth twice daily CIPRO 500 MG ORAL TABLET 219950 CIPROFLOXACIN HCL Inactive AZITHROMYCIN 250 MG ORAL TABLET 2 po qd x 1 day, then 1 po q d x 4 days AZITHROMYCIN 250 MG ORAL TABLET 247619 AZITHROMY SPARKLE Inactive FLAGYL 500 MG ORAL TABLET 1 tablet by mouth bid 04/13 FLAGYL 500 MG ORAL TABLET 497832 METRONIDAZOLE Inactive AZITHROMYCIN 250 MG ORAL TABLET 2 po qd x 1 day, then 1 po q d x 4 days AZITHROMYCIN 250 MG ORAL TABLET 688953 AZITHROMY SPARKLE Inactive AMOXICILLIN 500 MG ORAL CAPSULE 2 po BID x 10 days 201 01/15/27 AMOXICILLIN 500 MG ORAL CAPSULE 251946 AMOXICILLIN Inactive Immunizations Vaccine Administration Date Value [...] PANEL - Chemistry cholesterol, serum 192 mg/dL 398-058 7171/02/20 HDL cholesterol, serum 31 mg/dL > OR [...] 11 .0-15.0 platelet count 218 THOUSAND/UL 10*3/mm3 176-245 4896/02/20 mean platelet volume 9.7 fL 7.5-12.5 mean corpuscular volume, RBC 96.5 fL 80.0-10 0.0 hematocrit, blood 42.2 % 35.0-45.0 hemoglobin, blood 13.7 g/dL 11.7-15.5 erythrocyte (RBC) count 4.37 MILLION/UL 10*6/mm3 3.80-5. 10 leukocyte count, blood 8.7 THOUSAND/UL 10*3/mm3 3.8-10.8 Lab Report: Comp. Metabolic Panel, Eryth rocyte Sed Rate, UADIP W/MICRO, ... - Chemistry sodium, serum 139 mmol/L 009-822 1953/11/28 carbon dioxide, venous blood 26.0 mmol/L 21.0-32 [...] 5.0-8.5 Encounters Code Encounter Date Provider Facility CPT-99614 Level 3 Est. Patient 11:24:55 THERMAL SPRAY OPERATOR Efren almendarez [facility] CPT-96609 Level 3 Est. Patient 13:05:44 CDT Paul Hamlin MD [facility] CPT-48027 Level 3 Est. Patient 11:29:55 CDT Checo Conklin MD [facility] CPT-75195 Level 4 Est. Patient 11:08:12 THERMAL SPRAY OPERATOR Checo Conklin MD [facility] CPT-58106 Level 4 Est. Patient 16:06:48 THERMAL SPRAY OPERATOR Checo Conklin MD [facility] CPT-78250 Level 3 Est. Patient 09:11:49 CDT Efren almendarez [facility] CPT-31186 Level 2 Est. Patient 19:53:27 CDT Tanner hill MD [facility] CPT-28442 Level 3 Est. Patient 09:15:34 CDT Efren almendarez [facility] CPT-24491 Level 3 Est. Patient 11:28:51 THERMAL SPRAY OPERATOR Efren almendarez [facility] CPT-81337 Level 4 Est. Patient 13:55:46 THERMAL SPRAY OPERATOR Checo Conklin MD [facility] CPT-01636 Level 4 Est. Patient 17:10:53 CDT Checo Conklin MD [facility] CPT-07170 Level 3 Est. Patient 15:56:22 CDT Checo Conklin MD [facility] CPT-86986 Level 3 Est. Patient 15:29:07 CDT Checo Conklin MD [facility] CPT-45593 Level 3 Est. Patient 14:38:41 CDT Checo Conklin MD [facility] CPT-21553 Level 3 Est. Patient 15:22:03 THERMAL SPRAY OPERATOR Thomas reynolds DO [facility] CPT-77057 Level 3 Est. Patient 13:34:17 THERMAL SPRAY OPERATOR Checo Conklin MD [facility] CPT-41283 Level 3 Est. Patient 12:29:32 CDT Dangelo arroyo MD [facility] CPT-50985 Level 3 Est. Patient 16:53:02 CDT Checo Conklin MD [facility] CPT-36841 Level 3 Est. Patient 16:37:13 CDT Checo Conklin MD [facility] CPT-88064 Level 3 Est. Patient 16:16:59 CDT Paul Hamlin MD [facility] CPT-08174 Level 3 Est. Patient 14:20:13 CDT Dangelo arroyo MD [facility] CPT-08579 Level 4 Est. Patient 11:29:33 CDT Checo Conklin MD [facility] CPT-15856 Level 3 Est. Patient 17:08:31 CDT Checo Conklin MD [facility] CPT-65711 Level 3 Est. Patient 16:50:42 THERMAL SPRAY OPERATOR Checo Conklin MD [facility] CPT-59783 Level 4 Est. Patient 09:26:08 THERMAL SPRAY OPERATOR Checo Conklin MD [facility] CPT-85800 Level 3 Est. Patient 11:37:10 CDT Checo Conklin MD [facility] CPT-77557 Level 4 Est. Patient 14:07:38 CDT Checo Conklin MD [facility] CPT-79456 Level 3 Est. Patient 09:54:41 CDT Checo Conklin MD [facility] CPT-32818 Level 3 Est. Patient 11:10:54 CDT Paul Hamlin MD [facility] CPT-08780 Level 3 Est. Patient 14:16:56 THERMAL SPRAY OPERATOR Checo Conklin MD [facility] CPT-01305 Level 3 Est. Patient 11:04:11 THERMAL SPRAY OPERATOR Checo Conklin MD [facility] CPT-67500 Level 3 Est. Patient 17:09:26 CDT Dangelo arroyo MD [facility] CPT-50793 Level 3 Est. Patient 16:54:37 CDT Checo Conklin MD [facility] Procedures Code Procedure Name Date Entry Date Standard Desc ription CPT-54384 Abd compl w upright - XRAY USE ONLY 1 1:36:54 THERMAL SPRAY OPERATOR CPT-05471 UA w micro - LAB USE ONLY 17:06:46 CDT 2015 CPT-82535 BHCG Qual - LAB USE ONLY 17:06:46 CDT 05/06 CPT-60288 CMP - LAB USE ONLY 17:06:46 CDT CPT-42556 CBC with Diff - LAB USE ONLY 17:06:45 CDT 2 CPT-34120 Venipuncture Draw Fee 17:06:45 CDT CPT-LR Lesion Removal 19:53:27 CDT CPT-OV Office Visit 11:31:28 CDT CPT-52093 Tubersol 09:39:29 CDT CPT-J2550 Phenergan 25 mg (Promethazine) 13:59:02 THERMAL SPRAY OPERATOR CPT-J1885 Toradol 60 mg (Ketorolac) 13:59:02 THERMAL SPRAY OPERATOR 2012
--- OUTSIDE RECORDS SUMMARY | 2019-09-29 02:07 | XMS REPORT | Clinical Summary ---
Author Author Admin, Bethany Ayala [facility] Address Unknown Phone Unavailable Allergies, Adverse [...] TABLET 1.5 po qd PAR OXETINE HCL 48492282230 Active Checo Conklin MD Active FLUTICASONE PROPIONATE 50 MCG/ACT NASAL SUSPENSION 2 s prays/nostril qd PRN Congestion/Allergies FLUTICASONE PROPIONATE [id number] 9 No Longer Active Checo Conklin MD Active AMOXICILLIN 500 MG ORAL CAPSULE 2 po BID x 10 days 201 01/15/27 AMOXICILLIN 75841909122 No Longer Active Checo Conklin MD Activ e MIRALAX ORAL POWDER 8.5 to 17g po qd PRN Constipation POLYETHYLENE GLYCOL 3350 83880361984 Active Checo Conklin MD Active CLARITIN 10 MG ORAL TABLET 1 tablet by mouth daily as needed for allergies LORATADINE 28547757581 No Longer Active Checo Ortiz MD Active BACTRIM DS 800-160 MG ORAL TABLET 1 tab by mouth twice daily 201 12/19/26 TRIMETHOPRIM-SULFAMETHOXAZOLE 52616725595 No Longer Active Ragini Carrillo MD Active DIFLUCAN 150 MG ORAL TABLET 1 tablet by mouth qod 2015 FLUCONAZOLE 13008378723 No Longer Active Efren Medel [employer] Act mike AZITHROMYCIN 250 MG ORAL TABLET 2 po qd x 1 day, then 1 po q d x 4 days AZITHROMYCIN 87750471454 No Longer Active Efren flores [employer] Active FLAGYL 500 MG ORAL TABLET 1 tablet by mouth bid 04/13 METRONIDAZOLE 39334208071 No Longer Active Checo Conklin MD Acti ve FOCALIN XR 10 MG ORAL CAPSULE EXTENDED RELEASE 24 HOUR 1 po q a.m. DEXMETHYLPHENIDATE HCL 39473201937 Active Checo Conklin MD Active MAGNESIUM CITRATE 1.745 GM/30ML ORAL SOLUTION 150ml po BID P RN Constipation MAGNESIUM CITRATE 80594517102 No Longer Active Checo Conklin MD Active BACTROBAN 2 % EXTERNAL CREAM Apply to affected area BID for up to 10 days MUPIROCIN CALCIUM 46535199263 No Longer Active Checo Conklin MD Active HYDROCODONE-ACETAMINOPHEN 5-325 MG ORAL TABLET 1 tab b y mouth every 6 hours as needed HYDROCODONE-ACETAMINOPHEN 66419181250 No Longer Active Checo Conklin MD Active IBUPROFEN 800 MG ORAL TABLET 1 tab every 8 hours with food 03/20 IBUPROFEN 25465001058 No Longer Active Checo Conklin MD Active DIFLUCAN 150 MG ORAL TABLET 1 tablet by mouth if neede d, hold until symptoms start FLUCONAZOLE 79050988284 No Longer Active Checo Conklin MD Active BACTRIM DS 800-160 MG ORAL TABLET 1 tab by mouth twice daily 201 11/23/03 TRIMETHOPRIM-SULFAMETHOXAZOLE 29696617673 No Longer Active K bernice Méndez LPN Active HYDROCODONE-ACETAMINOPHEN 5-325 MG ORAL TABLET 0.5 to 1 tab by mouth every 6 hours as needed HYDROCODONE-ACETAMINOPHEN 43303937433 No Longer Active Checo Conklin MD Active ONDANSETRON 8 MG ORAL TABLET DISINTEGRATING place one tablet on tongue and allow to dissolve every 6 hours as needed for vomitting ONDANSETRON 33399361566 No Longer Active Checo Conklin MD Activ e COMPRO 25 MG RECTAL SUPPOSITORY insert or apply one garza ppository rectally as directed every 12 hours as needed for nausea PROCHLORPERAZINE 46678189473 No Longer Active Checo Conklin MD A ctive SUMATRIPTAN SUCCINATE 100 MG ORAL TABLET Take one PRN for migran e SUMATRIPTAN SUCCINATE 31367924717 No Longer Active Checo Conklin MD Active TRAVEL SICKNESS 25 MG ORAL TABLET CHEWABLE chew and sw allow one tablet every 6 hours as needed MECLIZINE HCL 13632672682 No Longer A ctive Checo Conklin MD Active BUPROPION HCL ER (SR) 100 MG ORAL TABLET EXTENDED RELE ASE 12 HOUR take one tablet by mouth one time daily for one week then take 1 two times daily BUPROPION HCL 56922445526 No Longer Active Checo gallagher MD Active TERBINAFINE HCL 250 MG ORAL TABLET take one table PO one time da moises TERBINAFINE HCL 17021870932 No Longer Active Checo Conklin MD Active METOCLOPRAMIDE HCL 10 MG ORAL TABLET take one PO tid PRN nausea METOCLOPRAMIDE HCL 87666411560 No Longer Active Checo Conklin MD Active DICLOFENAC SODIUM 75 MG ORAL TABLET DELAYED RELEASE 1 tablet by mouth twice daily PRN Knee pain DICLOFENAC SODIUM 50252806619 No Longer Active Checo Conklin MD Active LAMISIL 250 MG ORAL TABLET 1 po qd TERBINAFI NE HCL 25983992369 No Longer Active Checo Conklin MD Active REGLAN 10 MG ORAL TABLET 1 po TID PRN Nausea 3 METOCLOPRAMIDE HCL 99150974715 No Longer Active Checo Conklin MD Active CELEXA 20 MG ORAL TABLET 1 tablet by mouth daily 09/26 CITALOPRAM HYDROBROMIDE 89743812578 No Longer Active Checo Conklin MD Active AZITHROMYCIN 250 MG ORAL TABLET 2 po qd x 1 day, then 1 po q d x 4 days AZITHROMYCIN 05498606051 No Longer Active Checo Ortiz MD Active HYDROCODONE-ACETAMINOPHEN 5-325 MG ORAL TABLET 1 po q 6hr PRN Pa in HYDROCODONE-ACETAMINOPHEN 81841184855 No Longer Active Lenora Conklin MD Active PHENAZOPYRIDINE HCL 200 MG ORAL TABLET take 1 tab po TID for bladder pain PHENAZOPYRIDINE HCL 82093696511 No Longer Active Joe Conklin MD Active CIPRO 500 MG ORAL TABLET 1 tablet by mouth twice daily CIPROFLOXACIN HCL 30272123633 No Longer Active Dangelo Rangel MD Active HYDROCODONE-ACETAMINOPHEN 5-325 MG ORAL TABLET 1/2 to 1 po q 4 hours prn cough HYDROCODONE-ACETAMINOPHEN 02866167856 No Longer Activ e Dangelo Rangel MD Active BACTRIM DS 800-160 MG ORAL TABLET 1 po BID x 7 days 29/04/10 SULFAMETHOXAZOLE-TRIMETHOPRIM 82045043443 No Longer Active Checo Conklin MD Active PREDNISONE 20 MG ORAL TABLET 2 tabs daily for 3 days, 1 tab daily for 3 days, 1/2 tab daily for 2 days PREDNISONE 08299286383 No Longer Active Checo Conklin MD Active TRIAMCINOLONE ACETONIDE 0.1 % EXTERNAL OINTMENT Apply to affected areas TID for up to 2 weeks TRIAMCINOLONE ACETONIDE 79068836901 No Longer Active Checo Conklin MD Active CEFDINIR 300 MG ORAL CAPSULE by mouth twice a day 2013 CEFDINIR 93649225167 No Longer Active Dangelo Rangel MD Acti ve BUPROPION HCL ER (SMOKING DET) 150 MG ORAL TABLET EXTE NDED RELEASE 12 HOUR 1 a day for 1 week then 1 twice a day BUPROPION HCL (SMOKING DETER) 60403860919 No Longer Active Checo Conklin MD Active SIMVASTATIN 20 MG ORAL TABLET 1 po qd SIMVASTAT IN 75583171972 Active Checo Conklin MD Active CHANTIX STARTING MONTH KARTHIK 0.5 MG X 11 & 1 MG X 42 ORA L TABLET 0.5mg daily for 3 days, then 0.5mg BID for 4 days, then 1mg BID VARENICLINE TARTRATE 01059318749 No Longer Active Checo Conklin MD Activ e XANAX 0.5 MG ORAL TABLET 1 po BID PRN anxiety A LPRAZOLAM 38422986883 Active Checo Conklin MD Active CONCERTA 18 MG ORAL TABLET EXTENDED RELEASE 1 po q a.m. METHYLPHENIDATE HCL 26079744305 No Longer Active Checo Conklin MD Active AMBIEN 5 MG ORAL TABLET 1 po qHS PRN Insomnia Z OLPIDEM TARTRATE 33003757038 Active Checo Conklin MD Active TRAZODONE HCL 100 MG ORAL TABLET 0.5 to 1 po qHS PRN Insomnia 20 30/07/08 TRAZODONE HCL 36635455143 No Longer Active Checo Conklin MD Active FIORICET 325-50-40 MG TAB 1 tablet by mouth four times daily as needed HLLCUAFGBLXNX-ELAO-XJNCOEEMGE 43830584594 No Longer Active Checo Conklin MD Active PHENERGAN CREAM* 25mg applied to wrist q6hr PRN Nausea PHENERGAN CREAM* No Longer Active Checo Gonzales ctive FLONASE 50 MCG/ACT NASAL SUSPENSION 1 spray each nostril am and hs FLUTICASONE PROPIONATE 64419276742 No Longer Active Checo Conklin MD Active ANTIPYRINE-BENZOCAINE 5.4-1.4 % OTIC SOLUTION 1-2 drops in affec yohannes ear BENZOCAINE-ANTIPYRINE 06578186234 No Longer Active Checo Conklin MD Active CEFDINIR 300 MG ORAL CAPSULE 1 po bid CEFDINIR 79722415594 No Longer Active Checo Conklin MD Active PREDNISONE 20 MG ORAL TABLET 2 tabs daily for 3 days, 1 tab daily for 3 days, 1/2 tab daily for 2 days PREDNISONE 15243563823 No Longer Active Checo Conklin MD Active AZITHROMYCIN 250 MG ORAL TABLET 2 po qd x 1 day, then 1 po q d x 4 days AZITHROMYCIN 54113656499 No Longer Active Checo Ortiz MD Active PREDNISONE 20 MG ORAL TABLET 2 tabs daily for 3 days, 1 tab daily for 3 days, 1/2 tab daily for 2 days PREDNISONE 70779225874 No Longer Active Checo Conklin MD Active ZITHROMAX Z-KARTHIK 250 MG ORAL TABLET 2 today, then 1 daily for 4 d ays AZITHROMYCIN 21004756353 No Longer Active Paul Hamlin MD Active FOCALIN XR 10 MG ORAL CAPSULE EXTENDED RELEASE 24 HOUR 1 po q a. m. DEXMETHYLPHENIDATE HCL 97827145590 No Longer Active Paul Hamlin MD Active PERCOCET 10-325 MG ORAL TABLET 1 tablet every 6 hours as needed for pain OXYCODONE-ACETAMINOPHEN 67558802719 No Longer Active Paul Hamlin MD Active LORTAB 5-500 MG ORAL TABLET 1/2 to 1 tablet by mouth e very 4 hours as needed for pain HYDROCODONE-ACETAMINOPHEN 10790865776 No Longer Active Checo Conklin MD Active FOCALIN XR 15 MG ORAL CAPSULE EXTENDED RELEASE 24 HOUR 1 po q a. m. DEXMETHYLPHENIDATE HCL 45742617101 No Longer Active Checo Conklin MD Active ZOFRAN ODT 4 MG ORAL TABLET DISINTEGRATING 1 po q6hr PRN Nausea ONDANSETRON 22680473201 No Longer Active Checo Conklin MD Active PERCOCET 5-325 MG ORAL TABLET 1 tablet by mouth every 6 hour s as needed OXYCODONE-ACETAMINOPHEN 55325933225 No Longer Active Checo Conklin MD Active PYRIDIUM 200 MG ORAL TABLET take 1 tab po TID prn urinary pain. PHENAZOPYRIDINE HCL 14190259835 No Longer Active Checo Joshua Active FLUCONAZOLE 150 MG ORAL TABLET take 1 tab po qday once FLUCONAZOLE 87800873268 No Longer Active Dangelo Rangel MD Acti ve CIPRO 500 MG ORAL TABLET 1 tablet by mouth twice daily CIPROFLOXACIN HCL 32196797176 No Longer Active Dangelo Rangel MD Active PYRIDIUM 200 MG ORAL TABLET take 1 tab po TID prn urinary pain. PYRIDIUM 200 MG ORAL TABLET 9346672 PHENAZOPYRIDINE HCL Inactive PERCOCET 5-325 MG ORAL TABLET 1 tablet by mouth every 6 hour s as needed PERCOCET 5-325 MG ORAL TABLET 7570220 OXYCODONE-ACETAMINOPHEN Inactive ZOFRAN ODT 4 MG ORAL TABLET DISINTEGRATING 1 po q6hr PRN Nausea ZOFRAN ODT 4 MG ORAL TABLET DISINTEGRATING 076393 ONDAN SETRON Inactive FOCALIN XR 15 MG ORAL CAPSULE EXTENDED RELEASE 24 HOUR 1 po q a. m. FOCALIN XR 15 MG ORAL CAPSULE EXTENDED RELEASE 24 HOUR DEXMETHYLPHENIDATE HCL Inactive LORTAB 5-500 MG ORAL TABLET 1/2 to 1 tablet by mouth e very 4 hours as needed for pain LORTAB 5-500 MG ORAL TABLET 893944 HYDROCODONE-ACETAMINOPHEN Inactive PERCOCET 10-325 MG ORAL TABLET 1 tablet every 6 hours as needed for pain PERCOCET 10-325 MG ORAL TABLET 6532054 OXYCODONE-ACETAMI NOPHEN Inactive FOCALIN XR 10 MG ORAL CAPSULE EXTENDED RELEASE 24 HOUR 1 po q a. m. FOCALIN XR 10 MG ORAL CAPSULE EXTENDED RELEASE 24 HOUR DEXMETHYLPHENIDATE HCL Inactive CEFDINIR 300 MG ORAL CAPSULE 1 po bid CEFDINI R 300 MG ORAL CAPSULE 381607 CEFDINIR Inactive ANTIPYRINE-BENZOCAINE 5.4-1.4 % OTIC SOLUTION 1-2 drops in affec yohannes ear ANTIPYRINE-BENZOCAINE 5.4-1.4 % OTIC SOLUTION 236226 BENZOCAINE-ANTIPYRINE Inactive FLONASE 50 MCG/ACT NASAL SUSPENSION 1 spray each nostril am and hs FLONASE 50 MCG/ACT NASAL SUSPENSION 6656613 FLUTICASONE PROPIONATE I nactive PHENERGAN CREAM* 25mg applied to wrist q6hr PRN Nausea PHENERGAN CREAM* Inactive FIORICET 325-50-40 MG TAB 1 tablet by mouth four times daily as needed FIORICET 325-50-40 MG TAB ACETAMINOPHEN-C AFF-BUTALBITAL Inactive TRAZODONE HCL 100 MG ORAL TABLET 0.5 to 1 po qHS PRN Insomnia 20 30/07/08 TRAZODONE HCL 100 MG ORAL TABLET 687572 TRAZODONE HCL Inactive CONCERTA 18 MG ORAL [...] cough HYDROCODONE-ACETAMINOPHEN 5-325 MG ORAL TABLET 8 33866 HYDROCODONE-ACETAMINOPHEN Inactive PHENAZOPYRIDINE HCL 200 MG ORAL TABLET take 1 tab po TID for bladder pain PHENAZOPYRIDINE HCL 200 MG ORAL TABLET 5147090 PHENAZOPYRIDINE HCL Inactive HYDROCODONE-ACETAMINOPHEN 5-325 MG ORAL TABLET 1 po q 6hr PRN Pa in HYDROCODONE-ACETAMINOPHEN 5-325 MG ORAL TABLET 776042 HYDROCODONE-ACETAMINOPHEN Inactive CELEXA 20 MG ORAL TABLET 1 tablet by mouth daily 09/26 CELEXA 20 MG ORAL TABLET 974610 CITALOPRAM HYDROBROMIDE Inactive REGLAN 10 MG ORAL TABLET 1 po TID PRN Nausea 3 REGLAN 10 MG ORAL TABLET 907346 METOCLOPRAMIDE HCL Inactive LAMISIL 250 MG ORAL TABLET 1 po qd L AMISIL 250 MG ORAL TABLET 132983 TERBINAFINE HCL Inactive DICLOFENAC SODIUM 75 MG ORAL TABLET DELAYED RELEASE 1 tablet by mouth twice daily PRN Knee pain DICLOFENAC SODIUM 75 MG ORAL TABLET DELAYED RELEASE 995568 DICLOFENAC SODIUM Inactive METOCLOPRAMIDE HCL 10 MG ORAL TABLET take one PO tid PRN nausea METOCLOPRAMIDE HCL 10 MG ORAL TABLET 759212 METOCLOPRAM ZACH HCL Inactive TERBINAFINE HCL 250 MG ORAL TABLET take one table PO one time da moises TERBINAFINE HCL 250 MG ORAL TABLET 415919 TERBINAFINE H CL Inactive BUPROPION HCL ER [...] SICKNESS 25 M G ORAL TABLET CHEWABLE 635023 MECLIZINE HCL Inactive SUMATRIPTAN SUCCINATE 100 MG ORAL TABLET Take one PRN for migran e SUMATRIPTAN SUCCINATE 100 MG ORAL TABLET 601650 SUMATRIPTAN SUCCINATE Inactive COMPRO 25 MG RECTAL SUPPOSITORY insert or apply one garza ppository rectally as directed every 12 hours as needed for nausea COMPRO 25 MG RECTAL SUPPOSITORY 311543 PROCHLORPERAZINE Inactive ONDANSETRON 8 MG ORAL TABLET DISINTEGRATING place one tablet on tongue and allow to dissolve every 6 hours as needed for vomitting ONDANSETRON 8 MG ORAL TABLET DISINTEGRATING 353262 ONDANSETRON Inactive HYDROCODONE-ACETAMINOPHEN 5-325 MG ORAL TABLET 0.5 to 1 tab by mouth every 6 hours as needed HYDROCODONE-ACETAMIN OPHEN 5-325 MG ORAL TABLET 220444 HYDROCODONE-ACETAMINOPHEN Inactive BACTRIM DS 800-160 MG ORAL TABLET 1 tab by mouth twice daily 201 11/23/03 BACTRIM DS 800-160 MG ORAL TABLET 059724 TRIMETHOPRIM-SULFAMETHOXAZOLE Inactive DIFLUCAN 150 MG ORAL TABLET 1 tablet by mouth if neede d, hold until symptoms start DIFLUCAN 150 MG ORAL TABLET 294107 FLUCONAZ OLE Inactive IBUPROFEN 800 MG ORAL TABLET 1 tab every 8 hours with food 03/20 IBUPROFEN 800 MG ORAL TABLET 183841 IBUPROFEN Krupa ctive HYDROCODONE-ACETAMINOPHEN 5-325 MG ORAL TABLET 1 tab b y mouth every 6 hours as needed HYDROCODONE-ACETAMINOPHEN 5-325 MG ORAL TABLET 033876 HYDROCODONE-ACETAMINOPHEN Inactive BACTROBAN 2 % EXTERNAL CREAM Apply to affected area BID for up to 10 days BACTROBAN 2 % EXTERNAL CREAM 589720 MUPIROCIN CA LCIUM Inactive MAGNESIUM CITRATE 1.745 GM/30ML ORAL SOLUTION 150ml po BID P RN Constipation MAGNESIUM CITRATE 1.745 GM/30ML ORAL SOLUTION 10 58149 MAGNESIUM CITRATE Inactive DIFLUCAN 150 MG ORAL TABLET 1 tablet by mouth qod 2015 DIFLUCAN 150 MG ORAL TABLET 622929 FLUCONAZOLE Inactive BACTRIM DS 800-160 MG ORAL TABLET 1 tab by mouth twice daily 201 12/19/26 BACTRIM DS 800-160 MG ORAL TABLET 297245 TRIMETHOPRIM-SULFAMETHOXAZOLE Inactive CLARITIN 10 MG ORAL TABLET 1 tablet by mouth daily as needed for allergies CLARITIN 10 MG ORAL TABLET 253650 LORATADINE I nactive FLUTICASONE PROPIONATE 50 MCG/ACT NASAL SUSPENSION 2 s prays/nostril qd PRN Congestion/Allergies FLUTICASONE PROPION ATE 50 MCG/ACT NASAL SUSPENSION 8463304 FLUTICASONE PROPIONATE Inactive CIPRO 500 MG ORAL TABLET 1 tablet by mouth twice daily CIPRO 500 MG ORAL TABLET 931581 CIPROFLOXACIN HCL Inactive FLUCONAZOLE 150 MG ORAL TABLET take 1 tab po qday once FLUCONAZOLE 150 MG ORAL TABLET 097830 FLUCONAZOLE Inactive ZITHROMAX Z-KARTHIK 250 MG ORAL TABLET 2 today, then 1 daily for 4 d ays ZITHROMAX Z-KARTHIK 250 MG ORAL TABLET 453133 AZITHROMYCIN Inactive PREDNISONE 20 MG ORAL TABLET 2 tabs daily for 3 days, 1 tab daily for 3 days, 1/2 tab daily for 2 days PREDNISONE 20 MG ORAL T ABLET 400276 PREDNISONE Inactive AZITHROMYCIN 250 MG ORAL TABLET 2 po qd x 1 day, then 1 po q d x 4 days AZITHROMYCIN 250 MG ORAL TABLET 833308 AZITHROMY SPARKLE Inactive PREDNISONE 20 MG ORAL TABLET 2 tabs daily for 3 days, 1 tab daily for 3 days, 1/2 tab daily for 2 days PREDNISONE 20 MG ORAL TABLET 284906 PREDNISONE Inactive CEFDINIR 300 MG ORAL CAPSULE by mouth twice a day 2013 CEFDINIR 300 MG ORAL CAPSULE 655950 CEFDINIR Inactive TRIAMCINOLONE ACETONIDE 0.1 % EXTERNAL OINTMENT Apply to affected areas TID for up to 2 weeks TRIAMCINOLONE ACETON ZACH 0.1 % EXTERNAL OINTMENT 0209479 TRIAMCINOLONE ACETONIDE Inactive PREDNISONE 20 MG ORAL TABLET 2 tabs daily for 3 days, 1 tab daily for 3 days, 1/2 tab daily for 2 days PREDNISONE 20 MG ORAL T ABLET 246239 PREDNISONE Inactive BACTRIM DS 800-160 MG ORAL TABLET 1 po BID x 7 days 29/04/10 BACTRIM DS 800-160 MG ORAL TABLET 472052 SULFAMETHOXAZOLE-TRIMETHOP RIM Inactive CIPRO 500 MG ORAL TABLET 1 tablet by mouth twice daily CIPRO 500 MG ORAL TABLET 325819 CIPROFLOXACIN HCL Inactive AZITHROMYCIN 250 MG ORAL TABLET 2 po qd x 1 day, then 1 po q d x 4 days AZITHROMYCIN 250 MG ORAL TABLET 102159 AZITHROMY SPARKLE Inactive FLAGYL 500 MG ORAL TABLET 1 tablet by mouth bid 04/13 FLAGYL 500 MG ORAL TABLET 936178 METRONIDAZOLE Inactive AZITHROMYCIN 250 MG ORAL TABLET 2 po qd x 1 day, then 1 po q d x 4 days AZITHROMYCIN 250 MG ORAL TABLET 049519 AZITHROMY SPARKLE Inactive AMOXICILLIN 500 MG ORAL CAPSULE 2 po BID x 10 days 201 01/15/27 AMOXICILLIN 500 MG ORAL CAPSULE 370778 AMOXICILLIN Inactive Immunizations Vaccine Administration Date Value [...] PANEL - Chemistry cholesterol, serum 192 mg/dL 349-442 3147/02/20 HDL cholesterol, serum 31 mg/dL > OR [...] 11 .0-15.0 platelet count 218 THOUSAND/UL 10*3/mm3 068-349 7694/02/20 mean platelet volume 9.7 fL 7.5-12.5 Encounters Code Encounter Date Provider Facility CPT-40479 Level 3 Est. 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 Patient 13:05:44 CDT Paul Hamlin MD [facility] CPT-82196 Level 3 Est. Patient 11:29:55 CDT Checo Conklin MD [facility] CPT-72876 Level 4 Est. Patient 11:08:12 DEBURRING MACHINE OPERATOR Checo Conklin MD [facility] CPT-14385 Level 4 Est. Patient 16:06:48 DEBURRING MACHINE OPERATOR Checo Conklin MD [facility] CPT-36957 Level 3 Est. Patient 09:11:49 CDT Efren Nicolas almendarez [facility] CPT-27970 Level 2 Est. Patient 19:53:27 CDT Tanner hill MD [facility] CPT-35800 Level 3 Est. Patient 09:15:34 CDT Americomarine Nicolas almendarez [facility] CPT-86664 Level 3 Est. Patient 11:28:51 DEBURRING MACHINE OPERATOR Efren Nicolas almendarez [facility] CPT-57957 Level 4 Est. Patient 13:55:46 DEBURRING MACHINE OPERATOR Checo Conklin MD [facility] CPT-70384 Level 4 Est. Patient 17:10:53 CDT Checo Conklin MD [facility] CPT-08312 Level 3 Est. Patient 15:56:22 CDT Checo Conklin MD [facility] CPT-78195 Level 3 Est. Patient 15:29:07 CDT Checo Conklin MD [facility] CPT-68469 Level 3 Est. Patient 14:38:41 CDT Checo Conklin MD [facility] CPT-32781 Level 3 Est. Patient 15:22:03 DEBURRING MACHINE OPERATOR Thomas reynolds DO [facility] CPT-26583 Level 3 Est. Patient 13:34:17 DEBURRING MACHINE OPERATOR Checo Conklin MD [facility] CPT-83649 Level 3 Est. Patient 12:29:32 CDT Dangelo arroyo MD [facility] CPT-49307 Level 3 Est. Patient 16:53:02 CDT Checo Conklin MD [facility] CPT-49266 Level 3 Est. Patient 16:37:13 CDT Checo Conklin MD [facility] CPT-49133 Level 3 Est. Patient 16:16:59 CDT Paul Hamlin MD [facility] CPT-59764 Level 3 Est. Patient 14:20:13 CDT Dangelo arroyo MD [facility] CPT-61638 Level 4 Est. Patient 11:29:33 CDT Checo Conklin MD [facility] CPT-26466 Level 3 Est. Patient 17:08:31 CDT Checo Conklin MD [facility] CPT-43660 Level 3 Est. Patient 16:50:42 DEBURRING MACHINE OPERATOR Checo Conklin MD [facility] CPT-22485 Level 4 Est. Patient 09:26:08 DEBURRING MACHINE OPERATOR Checo Conklin MD [facility] CPT-56415 Level 3 Est. Patient 11:37:10 CDT Checo Conklin MD [facility] CPT-08205 Level 4 Est. Patient 14:07:38 CDT Checo Conklin MD [facility] CPT-14967 Level 3 Est. Patient 09:54:41 CDT Checo Conklin MD [facility] CPT-85064 Level 3 Est. Patient 11:10:54 CDT Paul Hamlin MD [facility] CPT-20427 Level 3 Est. Patient 14:16:56 DEBURRING MACHINE OPERATOR Checo Conklin MD [facility] CPT-02694 Level 3 Est. Patient 11:04:11 DEBURRING MACHINE OPERATOR Checo Conklin MD [facility] CPT-71066 Level 3 Est. Patient 17:09:26 CDT Dangelo arroyo MD [facility] CPT-75254 Level 3 Est. Patient 16:54:37 CDT Checo Conklin MD [facility] Procedures Code Procedure Name Date Entry Date Standard Desc ription CPT-23010 Abd compl w upright - XRAY USE ONLY 1 1:36:54 DEBURRING MACHINE OPERATOR CPT-38358 UA w micro - LAB USE ONLY 17:06:46 CDT 2015 CPT-27906 BHCG Qual - LAB USE ONLY 17:06:46 CDT 05/06 CPT-48155 CMP - LAB USE ONLY 17:06:46 CDT CPT-52380 CBC with Diff - LAB USE ONLY 17:06:45 CDT 2 CPT-56451 Venipuncture Draw Fee 17:06:45 CDT CPT-LR Lesion Removal 19:53:27 CDT CPT-OV Office Visit 11:31:28 CDT CPT-32228 Tubersol 09:39:29 CDT CPT-J2550 Phenergan 25 mg (Promethazine) 13:59:02 DEBURRING MACHINE OPERATOR CPT-J1885 Toradol 60 mg (Ketorolac) 13:59:02 DEBURRING MACHINE OPERATOR 2012
--- OUTSIDE RECORDS SUMMARY | 2019-09-29 02:07 | XMS REPORT | Clinical Summary ---
Author Author Admin, Bethany Ayala [facility] Address Unknown Phone Unavailable Allergies, Adverse [...] TABS 1.5 po qd PAROX ETINE HCL 96070265380 Active Checo Conlkin MD Active FLUTICASONE PROPIONATE 50 MCG/ACT NASAL SUSP 2 sprays/ nostril qd PRN Congestion/Allergies FLUTICASONE PROPIONATE 6644863869 5 No Longer Active Checo Conklin MD Active AMOXICILLIN 500 MG ORAL CAPS 2 po BID x 10 days 09/12 AMOXICILLIN 12379680393 No Longer Active Checo Conklin MD Activ e MIRALAX ORAL POWD 8.5 to 17g po qd PRN Constipation POLYETHYLENE GLYCOL 3350 73473999291 Active Checo Conklin MD Active CLARITIN 10 MG TAB 1 tablet by mouth daily as needed for allergi es LORATADINE 12381004456 No Longer Active Checo Conklin MD Active BACTRIM DS 800-160 MG TAB 1 tab by mouth twice daily 2 TRIMETHOPRIM-SULFAMETHOXAZOLE 79469624117 No Longer Active Tanner Carrillo MD Active DIFLUCAN 150 MG TAB 1 tablet by mouth qod FLUCO NAZOLE 34002061273 No Longer Active Efren Medel APRN Active AZITHROMYCIN 250 MG TABS 2 po qd x 1 day, then 1 po qd x 4 days AZITHROMYCIN 79796364569 No Longer Active Jillina Frajoel NEUROPHYSIOLOGY TECH Active FLAGYL 500 MG TAB 1 tablet by mouth bid METRONI DAZOLE 16460046867 No Longer Active Checo Conklin MD Active FOCALIN XR 10 MG ORAL [id number] 1 po q a.m. DEX METHYLPHENIDATE HCL 40877972462 Active Checo Conklin MD Active MAGNESIUM CITRATE 1.745 GM/30ML ORAL SOLN 150ml po BID PRN C onstipation MAGNESIUM CITRATE 01595094887 No Longer Active Checo Conklin MD Active BACTROBAN 2 % CREAM Apply to affected area BID for up to 10 days MUPIROCIN CALCIUM 33633803844 No Longer Active Checo Conklin MD Active HYDROCODONE-ACETAMINOPHEN 5-325 MG TABS 1 tab by mouth every 6 hours as needed HYDROCODONE-ACETAMINOPHEN 04071252447 No Longer Activ e Checo Conklin MD Active IBUPROFEN 800 MG TABS 1 tab every 8 hours with food 20 31/03/21 IBUPROFEN 88187941146 No Longer Active Checo Conklin MD Activ e DIFLUCAN 150 MG TAB 1 tablet by mouth if needed, hold until symptoms start FLUCONAZOLE 18683546498 No Longer Active Checo Ortiz MD Active BACTRIM DS 800-160 MG TAB 1 tab by mouth twice daily 2 TRIMETHOPRIM-SULFAMETHOXAZOLE 26709080374 No Longer Active Corry leong LPN Active HYDROCODONE-ACETAMINOPHEN 5-325 MG TABS 0.5 to 1 tab b y mouth every 6 hours as needed HYDROCODONE-ACETAMINOPHEN 68238991807 No Longer Active Checo Conklin MD Active ONDANSETRON [address] one tablet on tongue and allow to dissolve every 6 hours as needed for vomitting ONDANSETRO N 02412876697 No Longer Active Checo Conklin MD Active COMPRO 25 MG RECTAL SUPP insert or apply one supposit ory rectally as directed every 12 hours as needed for nausea PROCHLORPERA ZINE 14784893620 No Longer Active Checo Conklin MD Active SUMATRIPTAN SUCCINATE 100 MG ORAL TABS Take one PRN for migrane SUMATRIPTAN SUCCINATE 05211526739 No Longer Active Checo Conklin MD Active TRAVEL SICKNESS 25 MG ORAL CHEW chew and swallow one t ablet every 6 hours as needed MECLIZINE HCL 25672566145 No Longer Active Joe Conklin MD Active BUPROPION HCL ER (SR) 100 MG ORAL [id number] take one t ablet by mouth one time daily for one week then take 1 two times daily BUPROPION HCL 67918176150 No Longer Active Checo Conklin MD Activ e TERBINAFINE HCL 250 MG ORAL TABS take one table PO one time abran y TERBINAFINE HCL 66169263205 No Longer Active Checo Conklin MD Active METOCLOPRAMIDE HCL 10 MG ORAL TABS take one PO tid PRN nausea 20 29/12/14 METOCLOPRAMIDE HCL 87703287005 No Longer Active Checo Conklin MD Active DICLOFENAC SODIUM 75 MG TBEC 1 tablet by mouth twice daily P RN Knee pain DICLOFENAC SODIUM 44932860635 No Longer Active Checo Conklin MD Active LAMISIL 250 MG TAB 1 po qd TERBINAFINE HCL 548 79952396 No Longer Active Checo Conklin MD Active REGLAN 10 MG TAB 1 po TID PRN Nausea METOCLOPRA MIDE HCL 31767455747 No Longer Active Checo Conklin MD Active CELEXA 20 MG TABS 1 tablet by mouth daily CITALOPRAM HYDROBROMIDE 77967749535 No Longer Active Checo Conklin MD Activ e AZITHROMYCIN 250 MG TABS 2 po qd x 1 day, then 1 po qd x 4 days AZITHROMYCIN 60733954030 No Longer Active Checo Conklin MD Active HYDROCODONE-ACETAMINOPHEN 5-325 MG TABS 1 po q 6hr PRN Pain 2013 HYDROCODONE-ACETAMINOPHEN 81374311279 No Longer Active Lenora Conklin MD Active PHENAZOPYRIDINE HCL 200 MG TABS take 1 tab po TID for bladder pa in PHENAZOPYRIDINE HCL 20694305330 No Longer Active Checo Joshua Active CIPRO 500 MG TAB 1 tablet by mouth twice daily CIPROFLOXACIN HCL 24714943431 No Longer Active Dangelo Rangel MD Active HYDROCODONE-ACETAMINOPHEN 5-325 MG TABS 1/2 to 1 po q 4 hour s prn cough HYDROCODONE-ACETAMINOPHEN 44429659191 No Longer Activ e Dangelo Rangel MD Active BACTRIM DS 800-160 MG TABS 1 po BID x 7 days 0 SULFAMETHOXAZOLE-TRIMETHOPRIM 12550694441 No Longer Active Checo Conklin MD Active PREDNISONE 20 MG TAB 2 tabs daily for 3 days, 1 t ab daily for 3 days, 1/2 tab daily for 2 days PREDNISONE 76780900958 No Longer Active Checo Conklin MD Active TRIAMCINOLONE ACETONIDE 0.1 % OINT Apply to affected a reas TID for up to 2 weeks TRIAMCINOLONE ACETONIDE 27533415642 No Longer A ctive Checo Conklin MD Active CEFDINIR 300 MG CAPS by mouth twice a day CEFDI JAZZY 01286281433 No Longer Active Dangelo Rangel MD Active BUPROPION HCL (SMOKING DETER) 150 MG [id number] 1 a day for 1 week then 1 twice a day BUPROPION HCL (SMOKING DETER) 39581778850 No Lo nger Active Checo Conklin MD Active SIMVASTATIN 20 MG TABS 1 po qd SIMVASTATIN 2801248418 5 Active Checo Conklin MD Active CHANTIX STARTING MONTH KARTHIK 0.5 MG X 11 & 1 MG X 42 TAB S 0.5mg daily for 3 days, then 0.5mg BID for 4 days, then 1mg BID VARENICLINE TARTRATE 69754349426 No Longer Active Checo Conklin MD Activ e XANAX 0.5 MG TABS 1 po BID PRN anxiety ALPRAZOLAM 31671312442 Active Checo Conklin MD Active CONCERTA 18 MG CR-TABS 1 po q a.m. METHYLPHENID ATE HCL 57747580512 No Longer Active Checo Conklin MD Active AMBIEN 5 MG TAB 1 po qHS PRN Insomnia ZOLPIDEM TARTRATE 89181619379 Active Checo Conklin MD Active TRAZODONE HCL 100 MG TAB 0.5 to 1 po qHS PRN Insomnia TRAZODONE HCL 00062010012 No Longer Active Checo Conklin MD Acti ve FIORICET 325-50-40 MG TAB 1 tablet by mouth four times daily as needed [id number] 67208716663 No Longer Active Checo Conklin MD Active PHENERGAN CREAM* 25mg applied to wrist q6hr PRN Nausea PHENERGAN CREAM* No Longer Active Checo Conklin MD A ctive FLONASE 50 MCG/ACT SUSP 1 spray each nostril am and hs FLUTICASONE PROPIONATE 22946415217 No Longer Active Checo Conklin MD Activ e ANTIPYRINE-BENZOCAINE 5.4-1.4 % SOLN 1-2 drops in affected ear BENZOCAINE-ANTIPYRINE 59255162808 No Longer Active Checo Conklin MD Active CEFDINIR 300 MG CAPS 1 po bid CEFDINIR 89027957 120 No Longer Active Checo Conklin MD Active PREDNISONE 20 MG TAB 2 tabs daily for 3 days, 1 t ab daily for 3 days, 1/2 tab daily for 2 days PREDNISONE 53177272022 No Longer Active Aracelis Conklin MD Active AZITHROMYCIN 250 MG TABS 2 po qd x 1 day, then 1 po qd x 4 days AZITHROMYCIN 51031382333 No Longer Active Checo Conklin MD Active PREDNISONE 20 MG TAB 2 tabs daily for 3 days, 1 t ab daily for 3 days, 1/2 tab daily for 2 days PREDNISONE 88917190302 No Longer Active Checo Conklin MD Active ZITHROMAX Z-KARTHIK 250 MG TABS 2 today, then 1 daily for 4 days 201 09/18/28 AZITHROMYCIN 38162780038 No Longer Active Paul Hamlin MD Active FOCALIN XR 10 MG [id number] 1 po q a.m. D EXMETHYLPHENIDATE HCL 02259987612 No Longer Active Paul Hamlin MD Activ e PERCOCET 10-325 MG TABS 1 tablet every 6 hours as needed for pain OXYCODONE-ACETAMINOPHEN 09882169674 No Longer Active Paul Hamlin MD Active LORTAB 5 5-500 MG TABS 1/2 to 1 tablet by mouth flaquito ry 4 hours as needed for pain HYDROCODONE-ACETAMINOPHEN 22683034280 No Longer Active Checo Conklin MD Active FOCALIN XR 15 MG [id number] 1 po q a.m. D EXMETHYLPHENIDATE HCL 63388669241 No Longer Active Checo Conklin MD Activ e ZOFRAN ODT 4 MG TBDP 1 po q6hr PRN Nausea ONDAN SETRON 87417400058 No Longer Active Checo Conklin MD Active PERCOCET 5-325 MG TABS 1 tablet by mouth every 6 hours as needed OXYCODONE-ACETAMINOPHEN 81256438880 No Longer Active Checo Conklin MD Active PYRIDIUM 200 MG TABS take 1 tab po TID prn urinary pain. 0 PHENAZOPYRIDINE HCL 41734259235 No Longer Active Checo Conklin MD Active FLUCONAZOLE 150 MG TABS take 1 tab po qday once 04/06 FLUCONAZOLE 54723915839 No Longer Active Dangelo Rangel MD Acti ve CIPRO 500 MG TAB 1 tablet by mouth twice daily CIPROFLOXACIN HCL 37082316213 No Longer Active Dangelo Rangel MD Active PYRIDIUM 200 MG TABS take 1 tab po TID prn urinary pain. 0 PYRIDIUM 200 MG TABS 2200431 PHENAZOPYRIDINE HCL Inactive PERCOCET 5-325 MG TABS 1 tablet by mouth every 6 hours as needed PERCOCET 5-325 MG TABS 1631472 OXYCODONE-ACETAMINOPHEN I nactive ZOFRAN ODT 4 MG TBDP 1 po q6hr PRN Nausea ZOFRAN ODT 4 MG TBDP 718462 ONDANSETRON Inactive FOCALIN XR 15 MG [id number] 1 po q a.m. F OCALIN XR 15 MG [id number] DEXMETHYLPHENIDATE HCL Inactive LORTAB 5 5-500 MG TABS 1/2 to 1 tablet by mouth flaquito ry 4 hours as needed for pain LORTAB 5 5-500 MG TABS HYDROCODONE-A CETAMINOPHEN Inactive PERCOCET 10-325 MG TABS 1 tablet every 6 hours as needed for pain PERCOCET 10-325 MG TABS 0403827 OXYCODONE-ACETAMINOPHEN Inactive FOCALIN XR 10 MG [id number] 1 po q a.m. F OCALIN XR 10 MG [id number] DEXMETHYLPHENIDATE HCL Inactive CEFDINIR 300 MG CAPS 1 po bid CEFDINIR 300 MG CAPS 20 0346 CEFDINIR Inactive ANTIPYRINE-BENZOCAINE 5.4-1.4 % SOLN 1-2 drops in affected ear ANTIPYRINE-BENZOCAINE 5.4-1.4 % SOLN BENZOCAINE-ANTIPYRINE I nactive FLONASE 50 MCG/ACT SUSP 1 spray each nostril am and hs FLONASE 50 MCG/ACT SUSP 5251192 FLUTICASONE PROPIONATE Inactive PHENERGAN CREAM* 25mg applied to wrist q6hr PRN Nausea PHENERGAN CREAM* Inactive FIORICET 325-50-40 MG TAB 1 tablet by mouth four times daily as needed FIORICET 325-50-40 MG TAB ACETAMINOPHEN-C AFF-BUTALBITAL Inactive TRAZODONE HCL 100 MG TAB 0.5 to 1 po qHS PRN Insomnia TRAZODONE HCL 100 MG TAB 323053 TRAZODONE HCL Inactive CONCERTA 18 MG CR-TABS [...] s prn cough HYDROCODONE-ACETAMINOPHEN 5-325 MG TABS 305166 HYDROCODONE-ACETAMINOPHEN Inactive PHENAZOPYRIDINE HCL 200 MG TABS take 1 tab po TID for bladder pa in PHENAZOPYRIDINE HCL 200 MG TABS 7874914 PHENAZOPYRIDINE HCL Inactive HYDROCODONE-ACETAMINOPHEN 5-325 MG TABS 1 po q 6hr PRN Pain 2013 HYDROCODONE-ACETAMINOPHEN 5-325 MG TABS 152095 HYDROCODONE-ACETAMINOPHEN Inactive CELEXA 20 MG TABS 1 tablet by mouth daily CELEXA 20 MG TABS 509701 CITALOPRAM HYDROBROMIDE Inactive REGLAN 10 MG TAB 1 po TID PRN Nausea REGLAN 10 MG TAB 222825 METOCLOPRAMIDE HCL Inactive LAMISIL 250 MG TAB 1 po qd LAMISIL 250 MG TAB 696115 TERBINAFINE HCL Inactive DICLOFENAC SODIUM 75 MG TBEC 1 tablet by mouth twice daily P RN Knee pain DICLOFENAC SODIUM 75 MG TBEC 659740 DICLOFENAC S ODIUM Inactive METOCLOPRAMIDE HCL 10 MG ORAL TABS take one PO tid PRN nausea 20 29/12/14 METOCLOPRAMIDE HCL 10 MG ORAL TABS 115007 METOCLOPRAMID E HCL Inactive TERBINAFINE HCL 250 MG ORAL TABS take one table PO one time abran y TERBINAFINE HCL 250 MG ORAL TABS 064373 TERBINAFINE HCL Inactive BUPROPION HCL ER (SR) 100 MG ORAL [id number] take one t ablet by mouth one time daily for one week then take 1 two times daily BUPROPION HCL ER (SR) 100 MG ORAL [id number] BUPROPION HCL Inacti ve TRAVEL SICKNESS 25 MG ORAL CHEW chew and swallow one t ablet every 6 hours as needed TRAVEL SICKNESS 25 MG ORAL CHEW 113630 MECLIZINE HCL Inactive SUMATRIPTAN SUCCINATE 100 MG ORAL TABS Take one PRN for migrane SUMATRIPTAN SUCCINATE 100 MG ORAL TABS 800167 SUMATRIPT AN SUCCINATE Inactive COMPRO 25 MG RECTAL SUPP insert or apply one supposit ory rectally as directed every 12 hours as needed for nausea COMP RO 25 MG RECTAL SUPP 279564 PROCHLORPERAZINE Inactive ONDANSETRON [address] one tablet on tongue and allow to dissolve every 6 hours as needed for vomitting ON DANSETRON 8 MG ORAL TBDP 163754 ONDANSETRON Inactive HYDROCODONE-ACETAMINOPHEN 5-325 MG TABS 0.5 to 1 tab b y mouth every 6 hours as needed HYDROCODONE-ACETAMINOPHEN 5-325 MG TABS 8 82987 HYDROCODONE-ACETAMINOPHEN Inactive BACTRIM DS 800-160 MG TAB 1 tab by mouth twice daily 2 BACTRIM DS 800-160 MG TAB 031534 TRIMETHOPRIM-SULFAMETHOXAZOLE Inac tive DIFLUCAN 150 MG TAB 1 tablet by mouth if needed, hold until symptoms start DIFLUCAN 150 MG TAB 19760325 FLUCONAZOLE Inactive IBUPROFEN 800 MG TABS 1 tab every 8 hours with food 31/03/21 IBUPROFEN 800 MG TABS 482391 IBUPROFEN Inactive HYDROCODONE-ACETAMINOPHEN 5-325 MG TABS 1 tab by mouth every 6 hours as needed HYDROCODONE-ACETAMINOPHEN 5-325 MG TABS 227436 HYDROCODONE-ACETAMINOPHEN Inactive BACTROBAN 2 % CREAM Apply to affected area BID for up to 10 days BACTROBAN 2 % CREAM 889007 MUPIROCIN CALCIUM Inactive MAGNESIUM CITRATE 1.745 GM/30ML ORAL SOLN 150ml po BID PRN C onstipation MAGNESIUM CITRATE 1.745 GM/30ML ORAL SOLN 866899 0 MAGNESIUM CITRATE Inactive DIFLUCAN 150 MG TAB 1 tablet by mouth qod DIFLUCAN 150 MG TAB 329625 FLUCONAZOLE Inactive BACTRIM DS 800-160 MG TAB 1 tab by mouth twice daily 2 BACTRIM DS 800-160 MG TAB 19820918 TRIMETHOPRIM-SULFAMETHOXAZOLE Inac tive CLARITIN 10 MG TAB 1 tablet by mouth daily as needed for allergi es CLARITIN 10 MG TAB 037162 LORATADINE Inactive FLUTICASONE PROPIONATE 50 MCG/ACT NASAL SUSP 2 sprays/ nostril qd PRN Congestion/Allergies FLUTICASONE PROPION ATE 50 MCG/ACT NASAL SUSP 1142390 FLUTICASONE PROPIONATE Inactive CIPRO 500 MG TAB 1 tablet by mouth twice daily CIPRO 500 MG TAB 317497 CIPROFLOXACIN HCL Inactive FLUCONAZOLE 150 MG TABS take 1 tab po qday once 04/06 FLUCONAZOLE 150 MG TABS 038032 FLUCONAZOLE Inactive ZITHROMAX Z-KARTHIK 250 MG TABS 2 today, then 1 daily for 4 days 201 09/18/28 ZITHROMAX Z-KARTHIK 250 MG TABS 7651167 AZITHROMYCIN Inac tive PREDNISONE 20 MG TAB 2 tabs daily for 3 days, 1 t ab daily for 3 days, 1/2 tab daily for 2 days PREDNISONE 20 MG TAB 916863 PREDNISON E Inactive AZITHROMYCIN 250 MG TABS 2 po qd x 1 day, then 1 po qd x 4 days AZITHROMYCIN 250 MG TABS 1048801 AZITHROMYCIN Inactiv e PREDNISONE 20 MG TAB 2 tabs daily for 3 days, 1 t ab daily for 3 days, 1/2 tab daily for 2 days PREDNISONE 20 MG TAB 115295 PREDNISON E Inactive CEFDINIR 300 MG CAPS by mouth twice a day CEFDINIR 300 MG CAPS 735672 CEFDINIR Inactive TRIAMCINOLONE ACETONIDE 0.1 % OINT Apply to affected a reas TID for up to 2 weeks TRIAMCINOLONE ACETONIDE 0.1 % OINT 558821 6 TRIAMCINOLONE ACETONIDE Inactive PREDNISONE 20 MG TAB 2 tabs daily for 3 days, 1 t ab daily for 3 days, 1/2 tab daily for 2 days PREDNISONE 20 MG TAB 190313 PREDNISON E Inactive BACTRIM DS 800-160 MG TABS 1 po BID x 7 days 0 BACTRIM DS 800-160 MG TABS 703881 SULFAMETHOXAZOLE-TRIMETHOPRIM Inactive CIPRO 500 MG TAB 1 tablet by mouth twice daily CIPRO 500 MG TAB 048623 CIPROFLOXACIN HCL Inactive AZITHROMYCIN 250 MG TABS 2 po qd x 1 day, then 1 po qd x 4 days AZITHROMYCIN 250 MG TABS 2640517 AZITHROMYCIN Inactiv e FLAGYL 500 MG TAB 1 tablet by mouth bid FLAGYL 500 MG TAB 936044 METRONIDAZOLE Inactive AZITHROMYCIN 250 MG TABS 2 po qd x 1 day, then 1 po qd x 4 days AZITHROMYCIN 250 MG TABS 6207850 AZITHROMYCIN Inactiv e AMOXICILLIN 500 MG ORAL CAPS 2 po BID x 10 days 09/12 AMOXICILLIN 500 MG ORAL CAPS 330978 AMOXICILLIN Inactive Immunizations Vaccine Administration Date Value [...] d blood pressure, diastolic 68 mm[Hg] BP amthew blood pressure, systolic 122 mm[Hg] BP sys [...] W/DIFF, Comp. Metabolic Panel, Qual [facility] - Chemistry sodium, serum 139 mmol/L 530-090 2160/10/21 carbon dioxide, venous blood 33.5 mmol/L 21.0-32 [...] W/DIFF, Comp. Metabolic Panel, Qual [facility] - Hematology leukocyte count, blood 7.9 10^3/MM^3 [...] PANEL - Chemistry cholesterol, serum 192 mg/dL 860-748 5696/02/20 HDL cholesterol, serum 31 mg/dL > OR [...] 11 .0-15.0 platelet count 218 THOUSAND/UL 10*3/mm3 519-930 9339/02/20 mean platelet volume 9.7 fL 7.5-12.5 Lab Report: Chlamydia/GC APTIMA/[id number] - Lab chlamydia DNA probe NOT DETECTED NOT DETECTED Lab Report: Chlamydia/GC [facility]TIM[facility]/[id number] - Microbiology Neisseria gonorrhoeae DNA probe NOT [...] 5.0-8.5 Encounters Code Encounter Date Provider Facility CPT-30570 Level 3 Est. Patient 13:05:44 CDT Paul Hamlin MD [facility] CPT-94588 Level 3 Est. Patient 11:29:55 CDT Checo Conklin MD [facility] CPT-05542 Level 4 Est. 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 Patient 09:11:49 CDT Efren almendarez [facility] CPT-62818 Level 2 Est. Patient 19:53:27 CDT Tanner hill MD [facility] CPT-15172 Level 3 Est. Patient 09:15:34 CDT Efren almendarez [facility] CPT-32888 Level 3 Est. 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 Patient 17:10:53 CDT Checo Conklin MD [facility] CPT-61658 Level 3 Est. Patient 15:56:22 CDT Checo Conklin MD [facility] CPT-61900 Level 3 Est. Patient 15:29:07 CDT Checo Conklin MD [facility] CPT-52360 Level 3 Est. Patient 14:38:41 CDT Checo Conklin MD [facility] CPT-80567 Level 3 Est. 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 Patient 13:34:17 PANEL MACHINE SETTER Checo Conklin MD [facility] CPT-61714 Level 3 Est. Patient 12:29:32 CDT Dangelo arroyo MD [facility] CPT-35719 Level 3 Est. Patient 16:53:02 CDT Checo Conklin MD [facility] CPT-42818 Level 3 Est. Patient 16:37:13 CDT Checo Conklin MD [facility] CPT-08436 Level 3 Est. Patient 16:16:59 CDT Paul Hamlin MD [facility] CPT-75639 Level 3 Est. Patient 14:20:13 CDT Dangelo arroyo MD [facility] CPT-90356 Level 4 Est. Patient 11:29:33 CDT Checo Conklin MD [facility] CPT-66045 Level 3 Est. Patient 17:08:31 CDT Checo Conklin MD [facility] CPT-19385 Level 3 Est. 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 Patient 09:26:08 PANEL MACHINE SETTER Checo Conklin MD [facility]-45057 Level 3 Est. Patient 11:37:10 CDT Checo Conklin MD [facility] CPT-52251 Level 4 Est. Patient 14:07:38 CDT Checo Conklin MD [facility] CPT-03477 Level 3 Est. Patient 09:54:41 CDT Checo Conklin MD [facility] CPT-71602 Level 3 Est. Patient 11:10:54 CDT Paul Hamlin MD [facility] CPT-59191 Level 3 Est. 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 Patient 17:09:26 CDT Dangelo arroyo MD [facility] CPT-81679 Level 3 Est. Patient 16:54:37 CDT Checo Conklin MD [facility] Procedures Code Procedure Name Date Entry Date Standard Desc ription CPT-33432 UA w micro - LAB USE ONLY 17:06:46 CDT 2015 CPT-40345 BHCG Qual - LAB USE ONLY 17:06:46 CDT 05/06 CPT-34198 CMP - LAB USE ONLY 17:06:46 CDT CPT-01276 CBC with Diff - LAB USE ONLY 17:06:45 CDT 2 CPT-10129 Venipuncture Draw Fee 17:06:45 CDT CPT-LR Lesion Removal 19:53:27 CDT CPT-OV Office Visit 11:31:28 CDT CPT-50931 Tubersol 09:39:29 CDT CPT-J2550 Phenergan 25 mg (Promethazine) 13:59:02 PANEL MACHINE SETTER CPT-J1885 Toradol 60 mg (Ketorolac) 13:59:02 PANEL MACHINE SETTER 2012
--- OUTSIDE RECORDS SUMMARY | 2019-09-29 02:08 | XMS REPORT | Clinical Summary ---
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 Tanner Carrillo MD Neoplasm of uncertain behavior of skin Abdominal pain, generalized 789.07 Active Jillina Frazell [employer] Abdominal pain, generalized Urinary frequency 788.41 Active Jillina Frazell [employer] Urinary frequency DIABETES ICD-V18.0 Inactive Checo Conklin MD 201 08/27/26 CONCUSSION ICD-850.9 Inactive Checo Joshua FH BREAST CANCER ICD-V16.3 Inactive Checo Joshua ABDOMINAL PAIN RIGHT LOWER QUADRANT ICD-789.03 Inactive Checo Conklin MD HEADACHE, TENSION ICD-307.81 Inactive Checo Conkiln MD OTITIS MEDIA-RIGHT ICD-382.9 Inactive Checo Conklin MD UTI ICD-599.0 Inactive Checo Conklin MD 2013 PHARYNGITIS ICD-462 Inactive Checo Conklin MD Insomnia ICD-780.52 Inactive Cheoc Joshua Onychomycosis, toenails ICD-110.1 Inactive Aracelis Conklin [...] tab by mouth twice daily 2 TRIMETHOPRIM-SULFAMETHOXAZOLE 77146359195 No Longer Active Tanner Carrillo MD Active DIFLUCAN 150 MG TAB 1 tablet by mouth qod FLUCO NAZOLE 46201740144 No Longer Active Efren Medel APRN Active CLARITIN 10 MG TAB 1 tablet by mouth daily as needed for allergies LORATADINE 62279575188 Active Jillina Frazell [employer] Active AZITHROMYCIN 250 MG TABS 2 po qd x 1 day, then 1 po qd x 4 days AZITHROMYCIN 11852425769 No Longer Active Jillina Lizy MAX Active FLAGYL 500 MG TAB 1 tablet by mouth bid METRONI DAZOLE 17722654669 No Longer Active Checo Conklin MD Active FOCALIN XR 10 MG ORAL [id number] 1 po q a.m. DEX METHYLPHENIDATE HCL 55993720452 Active Checo Conklin MD Active MAGNESIUM CITRATE 1.745 GM/30ML ORAL SOLN 150ml po BID PRN C onstipation MAGNESIUM CITRATE 94553771482 No Longer Active Checo Conklin MD Active BACTROBAN 2 % CREAM Apply to affected area BID for up to 10 days MUPIROCIN CALCIUM 21731851503 No Longer Active Checo Conklin MD Active HYDROCODONE-ACETAMINOPHEN 5-325 MG TABS 1 tab by mouth every 6 hours as needed HYDROCODONE-ACETAMINOPHEN 51406973950 No Longer Activ e Checo Conklin MD Active IBUPROFEN 800 MG TABS 1 tab every 8 hours with food 31/03/21 IBUPROFEN 30776807651 No Longer Active Checo Conklin MD Activ e DIFLUCAN 150 MG TAB 1 tablet by mouth if needed, hold until symptoms start FLUCONAZOLE 49758034910 No Longer Active Checo Ortiz MD Active BACTRIM DS 800-160 MG TAB 1 tab by mouth twice daily 2 TRIMETHOPRIM-SULFAMETHOXAZOLE 45974687139 No Longer Active Corry leong LPN Active MIRALAX PACK 1 po qd PRN Constipation POLYETHYL JOEL GLYCOL 3350 35569519935 Active Checo Conklin MD Active HYDROCODONE-ACETAMINOPHEN 5-325 MG TABS 0.5 to 1 tab b y mouth every 6 hours as needed HYDROCODONE-ACETAMINOPHEN 78360199737 No Longer Active Checo Conklin MD Active ONDANSETRON [address] one tablet on tongue and allow to dissolve every 6 hours as needed for vomitting ONDANSETRO N 24811936821 No Longer Active Checo Conklin MD Active COMPRO 25 MG RECTAL SUPP insert or apply one supposit ory rectally as directed every 12 hours as needed for nausea PROCHLORPERA ZINE 28608514914 No Longer Active Checo Conklin MD Active SUMATRIPTAN SUCCINATE 100 MG ORAL TABS Take one PRN for migrane SUMATRIPTAN SUCCINATE 38566356271 No Longer Active Checo Conklin MD Active TRAVEL SICKNESS 25 MG ORAL CHEW chew and swallow one t ablet every 6 hours as needed MECLIZINE HCL 77657587987 No Longer Active Joe Conklin MD Active BUPROPION HCL ER (SR) 100 MG ORAL [id number] take one t ablet by mouth one time daily for one week then take 1 two times daily BUPROPION HCL 85260190448 No Longer Active Checo Conklin MD Activ e TERBINAFINE HCL 250 MG ORAL TABS take one table PO one time abran y TERBINAFINE HCL 14118334786 No Longer Active Checo Conklin MD Active METOCLOPRAMIDE HCL 10 MG ORAL TABS take one PO tid PRN nausea 20 29/12/14 METOCLOPRAMIDE HCL 95697651124 No Longer Active Checo Conklin MD Active DICLOFENAC SODIUM 75 MG TBEC 1 tablet by mouth twice daily P RN Knee pain DICLOFENAC SODIUM 43165511475 No Longer Active Checo Conklin MD Active LAMISIL 250 MG TAB 1 po qd TERBINAFINE HCL 548 07846977 No Longer Active Checo Conklin MD Active REGLAN 10 MG TAB 1 po TID PRN Nausea METOCLOPRA MIDE HCL 15655735962 No Longer Active Checo Conklin MD Active CELEXA 20 MG TABS 1 tablet by mouth daily CITALOPRAM HYDROBROMIDE 84917557423 No Longer Active Checo Conklin MD Activ e AZITHROMYCIN 250 MG TABS 2 po qd x 1 day, then 1 po qd x 4 days AZITHROMYCIN 11605710398 No Longer Active Checo Conklin MD Active HYDROCODONE-ACETAMINOPHEN 5-325 MG TABS 1 po q 6hr PRN Pain 2013 HYDROCODONE-ACETAMINOPHEN 84947075693 No Longer Active Lenora Conklin MD Active PHENAZOPYRIDINE HCL 200 MG TABS take 1 tab po TID for bladder pa in PHENAZOPYRIDINE HCL 39900849244 No Longer Active Checo Joshua Active CIPRO 500 MG TAB 1 tablet by mouth twice daily CIPROFLOXACIN HCL 81716343044 No Longer Active Dangelo Rangel MD Active HYDROCODONE-ACETAMINOPHEN 5-325 MG TABS 1/2 to 1 po q 4 hour s prn cough HYDROCODONE-ACETAMINOPHEN 03960684332 No Longer Activ e Dangelo Rangel MD Active BACTRIM DS 800-160 MG TABS 1 po BID x 7 days 0 SULFAMETHOXAZOLE-TRIMETHOPRIM 41807324970 No Longer Active Checo Conklin MD Active PREDNISONE 20 MG TAB 2 tabs daily for 3 days, 1 t ab daily for 3 days, 1/2 tab daily for 2 days PREDNISONE 96908869602 No Longer Active Checo Conklin MD Active TRIAMCINOLONE ACETONIDE 0.1 % OINT Apply to affected a reas TID for up to 2 weeks TRIAMCINOLONE ACETONIDE 61341998971 No Longer A ctive Checo Conklin MD Active CEFDINIR 300 MG CAPS by mouth twice a day CEFDI JAZZY 47055849057 No Longer Active Dangelo Rangel MD Active BUPROPION HCL (SMOKING DETER) 150 MG [id number] 1 a day for 1 week then 1 twice a day BUPROPION HCL (SMOKING DETER) 27525704296 No Lo nger Active Checo Conklin MD Active SIMVASTATIN 20 MG TABS 1 po qd SIMVASTATIN 9400665098 5 Active Checo Conklin MD Active CHANTIX STARTING MONTH KARTHIK 0.5 MG X 11 & 1 MG X 42 TAB S 0.5mg daily for 3 days, then 0.5mg BID for 4 days, then 1mg BID VARENICLINE TARTRATE 40757294236 No Longer Active Checo Conklin MD Activ e XANAX 0.5 MG TABS 1 po BID PRN anxiety ALPRAZOLAM 10129189999 Active Checo Conklin MD Active CONCERTA 18 MG CR-TABS 1 po q a.m. METHYLPHENID ATE HCL 02774742726 No Longer Active Checo Conklin MD Active AMBIEN 5 MG TAB 1 po qHS PRN Insomnia ZOLPIDEM TARTRATE 57542096079 Active Checo Conklin MD Active TRAZODONE HCL 100 MG TAB 0.5 to 1 po qHS PRN Insomnia TRAZODONE HCL 95748767845 No Longer Active Checo Conklin MD Acti ve FIORICET 325-50-40 MG TAB 1 tablet by mouth four times daily as needed [id number] 15023545049 No Longer Active Checo Conklin MD Active PHENERGAN CREAM* 25mg applied to wrist q6hr PRN Nausea PHENERGAN CREAM* No Longer Active Checo Conklin MD A ctive FLONASE 50 MCG/ACT SUSP 1 spray each nostril am and hs FLUTICASONE PROPIONATE 27990422527 No Longer Active Checo Simms e ANTIPYRINE-BENZOCAINE 5.4-1.4 % SOLN 1-2 drops in affected ear BENZOCAINE-ANTIPYRINE 66381658656 No Longer Active Checo Conklin MD Active CEFDINIR 300 MG CAPS 1 po bid CEFDINIR 78022362 120 No Longer Active Checo Conklin MD Active PREDNISONE 20 MG TAB 2 tabs daily for 3 days, 1 t ab daily for 3 days, 1/2 tab daily for 2 days PREDNISONE 21107888892 No Longer Active Aracelis Conklin MD Active AZITHROMYCIN 250 MG TABS 2 po qd x 1 day, then 1 po qd x 4 days AZITHROMYCIN 19845574017 No Longer Active Checo Conklin MD Active PREDNISONE 20 MG TAB 2 tabs daily for 3 days, 1 t ab daily for 3 days, 1/2 tab daily for 2 days PREDNISONE 80610377668 No Longer Active Checo Conklin MD Active ZITHROMAX Z-KARTHIK 250 MG TABS 2 today, then 1 daily for 4 days 201 09/18/28 AZITHROMYCIN 13126290155 No Longer Active Paul Hamlin MD Active FOCALIN XR 10 MG [id number] 1 po q a.m. D EXMETHYLPHENIDATE HCL 81766116821 No Longer Active Paul Hamlin MD Activ e PERCOCET 10-325 MG TABS 1 tablet every 6 hours as needed for pain OXYCODONE-ACETAMINOPHEN 01928361686 No Longer Active Paul Hamlin MD Active LORTAB 5 5-500 MG TABS 1/2 to 1 tablet by mouth flaquito ry 4 hours as needed for pain HYDROCODONE-ACETAMINOPHEN 77102581673 No Longer Active Checo Conklin MD Active FOCALIN XR 15 MG [id number] 1 po q a.m. D EXMETHYLPHENIDATE HCL 24538893758 No Longer Active Checo Conklin MD Activ e ZOFRAN ODT 4 MG TBDP 1 po q6hr PRN Nausea ONDAN SETRON 14184692163 No Longer Active Checo Conklin MD Active PERCOCET 5-325 MG TABS 1 tablet by mouth every 6 hours as needed OXYCODONE-ACETAMINOPHEN 71648834379 No Longer Active Checo Conklin MD Active PYRIDIUM 200 MG TABS take 1 tab po TID prn urinary pain. 0 PHENAZOPYRIDINE HCL 72088752658 No Longer Active Checo Conklin MD Active FLUCONAZOLE 150 MG TABS take 1 tab po qday once 04/06 FLUCONAZOLE 74859244405 No Longer Active Dangelo Rangel MD Acti ve CIPRO 500 MG TAB 1 tablet by mouth twice daily CIPROFLOXACIN HCL 81690445976 No Longer Active Dangelo Rangel MD Active PYRIDIUM 200 MG TABS take 1 tab po TID prn urinary pain. 0 PYRIDIUM 200 MG TABS 9988454 PHENAZOPYRIDINE HCL Inactive PERCOCET 5-325 MG TABS 1 tablet by mouth every 6 hours as needed PERCOCET 5-325 MG TABS 5314065 OXYCODONE-ACETAMINOPHEN I nactive ZOFRAN ODT 4 MG TBDP 1 po q6hr PRN Nausea ZOFRAN ODT 4 MG TBDP 238352 ONDANSETRON Inactive FOCALIN XR 15 MG [id number] 1 po q a.m. F OCALIN XR 15 MG [id number] DEXMETHYLPHENIDATE HCL Inactive LORTAB 5 5-500 MG TABS 1/2 to 1 tablet by mouth flaquito ry 4 hours as needed for pain LORTAB 5 5-500 MG TABS HYDROCODONE-A CETAMINOPHEN Inactive PERCOCET 10-325 MG TABS 1 tablet every 6 hours as needed for pain PERCOCET 10-325 MG TABS 9726238 OXYCODONE-ACETAMINOPHEN Inactive FOCALIN XR 10 MG [id number] 1 po q a.m. F OCALIN XR 10 MG [id number] DEXMETHYLPHENIDATE HCL Inactive CEFDINIR 300 MG CAPS 1 po bid CEFDINIR 300 MG CAPS 20 0346 CEFDINIR Inactive ANTIPYRINE-BENZOCAINE 5.4-1.4 % SOLN 1-2 drops in affected ear ANTIPYRINE-BENZOCAINE 5.4-1.4 % SOLN 562430 BENZOCAINE-ANTIPYRINE I nactive FLONASE 50 MCG/ACT SUSP [...] PRN Insomnia TRAZODONE HCL 100 MG TAB 118644 TRAZODONE HCL Inactive CONCERTA 18 MG CR-TABS [...] s prn cough HYDROCODONE-ACETAMINOPHEN 5-325 MG TABS 096495 HYDROCODONE-ACETAMINOPHEN Inactive PHENAZOPYRIDINE HCL 200 MG TABS take 1 tab po TID for bladder pa in PHENAZOPYRIDINE HCL 200 MG TABS 5667342 PHENAZOPYRIDINE HCL Inactive HYDROCODONE-ACETAMINOPHEN 5-325 MG TABS 1 po q 6hr PRN Pain 2013 HYDROCODONE-ACETAMINOPHEN 5-325 MG TABS 914880 HYDROCODONE-ACETAMINOPHEN Inactive CELEXA 20 MG TABS 1 tablet by mouth daily CELEXA 20 MG TABS 662480 CITALOPRAM HYDROBROMIDE Inactive REGLAN 10 MG TAB 1 po TID PRN Nausea REGLAN 10 MG TAB 859589 METOCLOPRAMIDE HCL Inactive LAMISIL 250 MG TAB 1 po qd LAMISIL 250 MG TAB 138449 TERBINAFINE HCL Inactive DICLOFENAC SODIUM 75 MG TBEC 1 tablet by mouth twice daily P RN Knee pain DICLOFENAC SODIUM 75 MG TBEC 491031 DICLOFENAC S ODIUM Inactive METOCLOPRAMIDE HCL 10 MG ORAL TABS take one PO tid PRN nausea 20 29/12/14 METOCLOPRAMIDE HCL 10 MG ORAL TABS 694410 METOCLOPRAMID E HCL Inactive TERBINAFINE HCL 250 MG ORAL TABS take one table PO one time abran y TERBINAFINE HCL 250 MG ORAL TABS 247575 TERBINAFINE HCL Inactive BUPROPION HCL ER (SR) 100 MG ORAL [id number] take one t ablet by mouth one time daily for one week then take 1 two times daily BUPROPION HCL ER (SR) 100 MG ORAL [id number] BUPROPION HCL Inacti ve TRAVEL SICKNESS 25 MG ORAL CHEW chew and swallow one t ablet every 6 hours as needed TRAVEL SICKNESS 25 MG ORAL CHEW 300322 MECLIZINE HCL Inactive SUMATRIPTAN SUCCINATE 100 MG ORAL TABS Take one PRN for migrane SUMATRIPTAN SUCCINATE 100 MG ORAL TABS 542323 SUMATRIPT AN SUCCINATE Inactive COMPRO 25 MG RECTAL SUPP insert or apply one supposit ory rectally as directed every 12 hours as needed for nausea COMP RO 25 MG RECTAL SUPP 530456 PROCHLORPERAZINE Inactive ONDANSETRON [address] one tablet on tongue and allow to dissolve every 6 hours as needed for vomitting ON DANSETRON 8 MG ORAL TBDP 722993 ONDANSETRON Inactive HYDROCODONE-ACETAMINOPHEN 5-325 MG TABS 0.5 to 1 tab b y mouth every 6 hours as needed HYDROCODONE-ACETAMINOPHEN 5-325 MG TABS 8 08519 HYDROCODONE-ACETAMINOPHEN Inactive BACTRIM DS 800-160 MG TAB 1 tab by mouth twice daily 2 BACTRIM DS 800-160 MG TAB 19820918 TRIMETHOPRIM-SULFAMETHOXAZOLE Inac tive DIFLUCAN 150 MG TAB 1 tablet by mouth if needed, hold until symptoms start DIFLUCAN 150 MG TAB 19760325 FLUCONAZOLE Inactive IBUPROFEN 800 MG TABS 1 tab every 8 hours with food 20 31/03/21 IBUPROFEN 800 MG TABS 085470 IBUPROFEN Inactive HYDROCODONE-ACETAMINOPHEN 5-325 MG TABS 1 tab by mouth every 6 hours as needed HYDROCODONE-ACETAMINOPHEN 5-325 MG TABS 830241 HYDROCODONE-ACETAMINOPHEN Inactive BACTROBAN 2 % CREAM Apply to affected area BID for up to 10 days BACTROBAN 2 % CREAM 876109 MUPIROCIN CALCIUM Inactive MAGNESIUM CITRATE 1.745 GM/30ML ORAL SOLN 150ml po BID PRN C onstipation MAGNESIUM CITRATE 1.745 GM/30ML ORAL SOLN 070148 0 MAGNESIUM CITRATE Inactive DIFLUCAN 150 MG TAB 1 tablet by mouth qod DIFLUCAN 150 MG TAB 454093 FLUCONAZOLE Inactive BACTRIM DS 800-160 MG TAB 1 tab by mouth twice daily 2 BACTRIM DS 800-160 MG TAB 693783 TRIMETHOPRIM-SULFAMETHOXAZOLE Inac tive CIPRO 500 MG TAB 1 tablet by mouth twice daily CIPRO 500 MG TAB 810159 CIPROFLOXACIN HCL Inactive FLUCONAZOLE 150 MG TABS take 1 tab po qday once 04/06 FLUCONAZOLE 150 MG TABS 19760325 FLUCONAZOLE Inactive ZITHROMAX Z-KARTHIK 250 MG TABS 2 today, then 1 daily for 4 days 201 09/18/28 ZITHROMAX Z-KARTHIK 250 MG TABS 9425122 AZITHROMYCIN Inac tive PREDNISONE 20 MG TAB 2 tabs daily for 3 days, 1 t ab daily for 3 days, 1/2 tab daily for 2 days PREDNISONE 20 MG TAB 933224 PREDNISON E Inactive AZITHROMYCIN 250 MG TABS 2 po qd x 1 day, then 1 po qd x 4 days AZITHROMYCIN 250 MG TABS 0737231 AZITHROMYCIN Inactiv e PREDNISONE 20 MG TAB 2 tabs daily for 3 days, 1 t ab daily for 3 days, 1/2 tab daily for 2 days PREDNISONE 20 MG TAB 073273 PREDNISON E Inactive CEFDINIR 300 MG CAPS by mouth twice a day CEFDINIR 300 MG CAPS 749256 CEFDINIR Inactive TRIAMCINOLONE ACETONIDE 0.1 % OINT Apply to affected a reas TID for up to 2 weeks TRIAMCINOLONE ACETONIDE 0.1 % OINT 634816 6 TRIAMCINOLONE ACETONIDE Inactive PREDNISONE 20 MG TAB 2 tabs daily for 3 days, 1 t ab daily for 3 days, 1/2 tab daily for 2 days PREDNISONE 20 MG TAB 742835 PREDNISON E Inactive BACTRIM DS 800-160 MG TABS 1 po BID x 7 days 0 BACTRIM DS 800-160 MG TABS 559901 SULFAMETHOXAZOLE-TRIMETHOPRIM Inactive CIPRO 500 MG TAB 1 tablet by mouth twice daily CIPRO 500 MG TAB 842732 CIPROFLOXACIN HCL Inactive AZITHROMYCIN 250 MG TABS 2 po qd x 1 day, then 1 po qd x 4 days AZITHROMYCIN 250 MG TABS 5604124 AZITHROMYCIN Inactiv e FLAGYL 500 MG TAB 1 tablet by mouth bid FLAGYL 500 MG TAB 747754 METRONIDAZOLE Inactive AZITHROMYCIN 250 MG TABS 2 po qd x 1 day, then 1 po qd x 4 days AZITHROMYCIN 250 MG TABS 1415226 AZITHROMYCIN Inactiv e Immunizations Vaccine Administration Date [...] 11 .6-14.8 platelet count 210 10^3/MM^3 10*3/mm3 994-233 3610/01/26 mean corpuscular volume, RBC 98 fL 80-97 [...] 11 .6-14.8 platelet count 248 10^3/MM^3 10*3/mm3 232-016 3178/05/27 leukocyte count, blood 8.0 10^3/MM^3 10*3/mm3 4.6-10.2 Lab Report: CBC W/DIFF, Comp. Metabolic Panel, Qual [facility] - Chemistry sodium, serum 139 mmol/L 084-087 6798/10/21 carbon dioxide, venous blood 33.5 mmol/L 21.0-32 [...] CBC W/DIFF, Comp. Metabolic Panel, Qual [facility] - Hematology leukocyte count, [...] dipstick Negative Negative sodium, serum 141 mmol/L 222-364 8177/01/26 carbon dioxide, venous blood 30.0 mmol/L 21.0-32 .0 potassium, serum 4.0 mmol/L 3.5-5.2 chloride, serum 105 mmol/L 98-107 blood glucose 85 mg/dL 65-110 urea nitrogen, blood 9 mg/dL 7-18 creatinine, serum 0.66 mg/dL 0.55-1.30 alanine aminotransferase (SGPT), serum 31 U/L 12-78 aspartate aminotransferase (SGOT), serum 21 U/L 15-37 calcium, serum 8.2 mg/dL 8.5-10.1 bilirubin, serum, total 1.10 mg/dL 0.00-1.00 cholesterol, serum 178 mg/dL 915-977 4278/01/26 triglyceride, serum, fasting 149 mg/dL 30-200 HDL [...] ... - Chemistry sodium, serum 137 mmol/L 262-838 9976/05/27 carbon dioxide, venous blood 29.1 mmol/L 21.0-32 [...] 5.0-8.5 Encounters Code Encounter Date Provider Facility CPT-96688 Level 3 Est. Patient 09:11:49 CDT Efren almendarez [facility] CPT-00265 Level 2 Est. Patient 19:53:27 CDT Tanner hill MD [facility] CPT-31797 Level 3 Est. Patient 09:15:34 CDT Efren almendarez [facility] CPT-38575 Level 3 Est. Patient 11:28:51 [employer] Efren almendarez APRN [facility] CPT-89035 Level 4 Est. Patient 13:55:46 [employer] DEVELOPER Checo Conklin MD [facility] CPT-13910 Level 4 Est. Patient 17:10:53 CDT Checo Conklin MD [facility] CPT-87309 Level 3 Est. Patient 15:56:22 CDT Checo Conklin MD [facility] CPT-39628 Level 3 Est. Patient 15:29:07 CDT Checo Conklin MD [facility] CPT-60105 Level 3 Est. Patient 14:38:41 CDT Checo Conklin MD [facility] CPT-43587 Level 3 Est. Patient 15:22:03 [employer] DEVELOPER Thomas reynolds DO [facility] CPT-41965 Level 3 Est. Patient 13:34:17 [employer] DEVEL[employer] Checo Conklin MD [facility] CPT-97046 Level 3 Est. Patient 12:29:32 CDT Dangelo arroyo MD [facility] CPT-91230 Level 3 Est. Patient 16:53:02 CDT Checo Conklin MD [facility] CPT-03329 Level 3 Est. Patient 16:37:13 CDT Checo Conklin MD [facility] CPT-20755 Level 3 Est. Patient 16:16:59 CDT Paul Hamlin MD [facility] CPT-88213 Level 3 Est. Patient 14:20:13 CDT Dangelo arroyo MD [facility] CPT-36273 Level 4 Est. Patient 11:29:33 CDT Checo Conklin MD [facility] CPT-81104 Level 3 Est. Patient 17:08:31 CDT Checo Conklin MD [facility] CPT-94241 Level 3 Est. Patient 16:50:42 [employer] DEVELOPER Checo Conklin MD [facility] CPT-34685 Level 4 Est. Patient 09:26:08 [employer] DEVELOPER Checo Conklin MD [facility] CPT-38275 Level 3 Est. Patient 11:37:10 CDT Checo Conklin MD [facility] CPT-98828 Level 4 Est. Patient 14:07:38 CDT Checo Conklin MD [facility] CPT-12246 Level 3 Est. Patient 09:54:41 CDT Checo Conklin MD [facility] CPT-16133 Level 3 Est. Patient 11:10:54 CDT Paul Hamlin MD [facility] CPT-83619 Level 3 Est. Patient 14:16:56 [employer] DEVELOPER Checo Conklin MD [facility] CPT-11868 Level 3 Est. Patient 11:04:11 [employer] DEVELOPER Checo Conklin MD [facility] CPT-22388 Level 3 Est. Patient 17:09:26 CDT Dangelo arroyo MD [facility] CPT-74802 Level 3 Est. Patient 16:54:37 CDT Cehco Conklin MD 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
--- OUTSIDE RECORDS SUMMARY | 2019-09-29 02:08 | XMS REPORT | Clinical Summary ---
Author Author Admin, Bethany Gonzales Organization [facility] Address Unknown Phone Unavailable Allergies, [...] care facility OTITIS MEDIA-RIGHT 382.9 Resolved Checo richye MD Unspecified otitis media Onychomycosis, toenails 110.1 [...] Joshua Pain in joint involving lower leg DIABETES ICD-V18.0 Inactive Checo Conklin MD 201 [...] Conklin MD Mastalgia ICD-611.71 Inactive Checo Joshua BRONCHITIS, ACUTE ICD-466.0 Ozzy gallagher MD Abdominal pain ICD-789.00 Ozzy ngo MD Medication List Medication Instructions Start Date Stop Date Generic Name NDC Status Provider Patient Instruction HYDROCODONE-ACETAMINOPHEN 5-325 MG TABS 0.5 to 1 tab b y mouth every 6 hours as needed HYDROCODONE-ACETAMINOPHEN 25381490216 Active Checo Conklin MD Active DICLOFENAC SODIUM 75 MG TBEC 1 tablet by mouth twice daily P RN Knee pain DICLOFENAC SODIUM 60856654707 Active Checo Conklin MD Active LAMISIL 250 MG TAB 1 po qd TERBINAFINE HCL 548 32934133 No Longer Active Checo Conklin MD Active REGLAN 10 MG TAB 1 po TID PRN Nausea METOCLOPRA MIDE HCL 25966507886 No Longer Active Checo Conklin MD Active CELEXA 20 MG TABS 1 tablet by mouth daily CITALOPRAM HYDROBROMIDE 13479815036 No Longer Active Checo Conklin MD Activ e AZITHROMYCIN 250 MG TABS 2 po qd x 1 day, then 1 po qd x 4 days AZITHROMYCIN 73716685804 No Longer Active Checo Conklin MD Active HYDROCODONE-ACETAMINOPHEN 5-325 MG TABS 1 po q 6hr PRN Pain 2013 HYDROCODONE-ACETAMINOPHEN 72327723914 No Longer Active Lenora Conklin MD Active PHENAZOPYRIDINE HCL 200 MG TABS take 1 tab po TID for bladder pa in PHENAZOPYRIDINE HCL 61828921595 No Longer Active Checo Joshua Active CIPRO 500 MG TAB 1 tablet by mouth twice daily CIPROFLOXACIN HCL 28719463431 No Longer Active Dangelo Rangel MD Active HYDROCODONE-ACETAMINOPHEN 5-325 MG TABS 1/2 to 1 po q 4 hour s prn cough HYDROCODONE-ACETAMINOPHEN 04893277647 No Longer Activ e Dangelo Rangel MD Active BACTRIM DS 800-160 MG TABS 1 po BID x 7 days 0 SULFAMETHOXAZOLE-TRIMETHOPRIM 58908361123 No Longer Active Checo Conklin MD Active PREDNISONE 20 MG TAB 2 tabs daily for 3 days, 1 t ab daily for 3 days, 1/2 tab daily for 2 days PREDNISONE 48534338947 No Longer Active Checo Conklin MD Active TRIAMCINOLONE ACETONIDE 0.1 % OINT Apply to affected a reas TID for up to 2 weeks TRIAMCINOLONE ACETONIDE 72077415984 No Longer A ctive Checo Conklin MD Active CEFDINIR 300 MG CAPS by mouth twice a day CEFDI JAZZY 91679759481 No Longer Active Dangelo Rangel MD Active BUPROPION HCL (SMOKING DETER) 150 MG [id number] 1 a day for 1 week then 1 twice a day BUPROPION HCL (SMOKING DETER) 03577980260 No Lo nger Active Checo Conklin MD Active SIMVASTATIN 20 MG TABS 1 po qd SIMVASTATIN 1268354751 5 Active Checo Conklin MD Active CHANTIX STARTING MONTH KARTHIK 0.5 MG X 11 & 1 MG X 42 TAB S 0.5mg daily for 3 days, then 0.5mg BID for 4 days, then 1mg BID VARENICLINE TARTRATE 66553358576 No Longer Active Checo Conklin MD Activ e XANAX 0.5 MG TABS 1 po BID PRN anxiety ALPRAZOLAM 03520586914 Active Checo Conklin MD Active CONCERTA 18 MG CR-TABS 1 po q a.m. METHYLPHENID ATE HCL 41649273478 No Longer Active Checo Conklin MD Active AMBIEN 5 MG TAB 1 po qHS PRN Insomnia ZOLPIDEM TARTRATE 00083977647 Active Checo Conklin MD Active TRAZODONE HCL 100 MG TAB 0.5 to 1 po qHS PRN Insomnia TRAZODONE HCL 83759067634 No Longer Active Checo Conklin MD Acti ve FIORICET 325-50-40 MG TAB 1 tablet by mouth four times daily as needed [id number] 74384617176 No Longer Active Checo Conklin MD Active PHENERGAN CREAM* 25mg applied to wrist q6hr PRN Nausea PHENERGAN CREAM* No Longer Active Checo Gonzales ctive FLONASE 50 MCG/ACT SUSP 1 spray each nostril am and hs FLUTICASONE PROPIONATE 88027422046 No Longer Active Checo Conklin MD Activ e ANTIPYRINE-BENZOCAINE 5.4-1.4 % SOLN 1-2 drops in affected ear BENZOCAINE-ANTIPYRINE 46342397780 No Longer Active Checo Conklin MD Active CEFDINIR 300 MG CAPS 1 po bid CEFDINIR 85580022 120 No Longer Active Checo Conklin MD Active PREDNISONE 20 MG TAB 2 tabs daily for 3 days, 1 t ab daily for 3 days, 1/2 tab daily for 2 days PREDNISONE 97648311301 No Longer Active Aracelis Conklin MD Active AZITHROMYCIN 250 MG TABS 2 po qd x 1 day, then 1 po qd x 4 days AZITHROMYCIN 57269920687 No Longer Active Checo Conklin MD Active PREDNISONE 20 MG TAB 2 tabs daily for 3 days, 1 t ab daily for 3 days, 1/2 tab daily for 2 days PREDNISONE 20779183681 No Longer Active Checo Conklin MD Active ZITHROMAX Z-KARTHIK 250 MG TABS 2 today, then 1 daily for 4 days 201 09/18/28 AZITHROMYCIN 98596883405 No Longer Active Paul Hamlin MD Active FOCALIN XR 10 MG [id number] 1 po q a.m. D EXMETHYLPHENIDATE HCL 69526661216 No Longer Active Paul Hamlin MD Activ e PERCOCET 10-325 MG TABS 1 tablet every 6 hours as needed for pain OXYCODONE-ACETAMINOPHEN 13781308555 No Longer Active Paul Hamlin MD Active LORTAB 5 5-500 MG TABS 1/2 to 1 tablet by mouth flaquito ry 4 hours as needed for pain HYDROCODONE-ACETAMINOPHEN 78361540119 No Longer Active Checo Conklin MD Active FOCALIN XR 15 MG [id number] 1 po q a.m. D EXMETHYLPHENIDATE HCL 09411529537 No Longer Active Checo Conklin MD Activ e ZOFRAN ODT 4 MG TBDP 1 po q6hr PRN Nausea ONDAN SETRON 28954944690 No Longer Active Checo Conklin MD Active PERCOCET 5-325 MG TABS 1 tablet by mouth every 6 hours as needed OXYCODONE-ACETAMINOPHEN 20663868029 No Longer Active Checo Conklin MD Active PYRIDIUM 200 MG TABS take 1 tab po TID prn urinary pain. 0 PHENAZOPYRIDINE HCL 89313702635 No Longer Active Checo Conklin MD Active FLUCONAZOLE 150 MG TABS take 1 tab po qday once 04/06 FLUCONAZOLE 06049705652 No Longer Active Dangelo Rangel MD Acti ve CIPRO 500 MG TAB 1 tablet by mouth twice daily CIPROFLOXACIN HCL 09263261360 No Longer Active Dangelo Rangel MD Active PYRIDIUM 200 MG TABS take 1 tab po TID prn urinary pain. 0 PYRIDIUM 200 MG TABS 8194240 PHENAZOPYRIDINE HCL Inactive PERCOCET 5-325 MG TABS 1 tablet by mouth every 6 hours as needed PERCOCET 5-325 MG TABS 1154647 OXYCODONE-ACETAMINOPHEN I nactive ZOFRAN ODT 4 MG TBDP 1 po q6hr PRN Nausea ZOFRAN ODT 4 MG TBDP 618325 ONDANSETRON Inactive FOCALIN XR 15 MG [id number] 1 po q a.m. F OCALIN XR 15 MG [id number] DEXMETHYLPHENIDATE HCL Inactive LORTAB 5 5-500 MG TABS 1/2 to 1 tablet by mouth flaquito ry 4 hours as needed for pain LORTAB 5 5-500 MG TABS HYDROCODONE-A CETAMINOPHEN Inactive PERCOCET 10-325 MG TABS 1 tablet every 6 hours as needed for pain PERCOCET 10-325 MG TABS 6926297 OXYCODONE-ACETAMINOPHEN Inactive FOCALIN XR 10 MG [id number] 1 po q a.m. F OCALIN XR 10 MG [id number] DEXMETHYLPHENIDATE HCL Inactive CEFDINIR 300 MG CAPS 1 po bid CEFDINIR 300 MG CAPS 20 0346 CEFDINIR Inactive ANTIPYRINE-BENZOCAINE 5.4-1.4 % SOLN 1-2 drops in affected ear ANTIPYRINE-BENZOCAINE 5.4-1.4 % SOLN 170230 BENZOCAINE-ANTIPYRINE I nactive FLONASE 50 MCG/ACT SUSP 1 spray each nostril am and hs FLONASE 50 MCG/ACT SUSP 666407 FLUTICASONE PROPIONATE Inactive PHENERGAN CREAM* 25mg applied to wrist q6hr PRN Nausea PHENERGAN CREAM* Inactive FIORICET 325-50-40 MG TAB 1 tablet by mouth four times daily as needed FIORICET 325-50-40 MG TAB ACETAMINOPHEN-C AFF-BUTALBITAL Inactive TRAZODONE HCL 100 MG TAB 0.5 to 1 po qHS PRN Insomnia TRAZODONE HCL 100 MG TAB 815789 TRAZODONE HCL Inactive CONCERTA 18 MG CR-TABS [...] s prn cough HYDROCODONE-ACETAMINOPHEN 5-325 MG TABS 386194 HYDROCODONE-ACETAMINOPHEN Inactive PHENAZOPYRIDINE HCL 200 MG TABS take 1 tab po TID for bladder pa in PHENAZOPYRIDINE HCL 200 MG TABS 8977976 PHENAZOPYRIDINE HCL Inactive HYDROCODONE-ACETAMINOPHEN 5-325 MG TABS 1 po q 6hr PRN Pain 2013 HYDROCODONE-ACETAMINOPHEN 5-325 MG TABS 315829 HYDROCODONE-ACETAMINOPHEN Inactive CELEXA 20 MG TABS 1 tablet by mouth daily CELEXA 20 MG TABS 413093 CITALOPRAM HYDROBROMIDE Inactive REGLAN 10 MG TAB 1 po TID PRN Nausea REGLAN 10 MG TAB 414449 METOCLOPRAMIDE HCL Inactive LAMISIL 250 MG TAB 1 po qd LAMISIL 250 MG TAB 557029 TERBINAFINE HCL Inactive CIPRO 500 MG TAB 1 tablet by mouth twice daily CIPRO 500 MG TAB 057417 CIPROFLOXACIN HCL Inactive FLUCONAZOLE 150 MG TABS take 1 tab po qday once 04/06 FLUCONAZOLE 150 MG TABS 363200 FLUCONAZOLE Inactive ZITHROMAX Z-KARTHIK 250 MG TABS 2 today, then 1 daily for 4 days 201 09/18/28 ZITHROMAX Z-KARTHIK 250 MG TABS 0535991 AZITHROMYCIN Inac tive PREDNISONE 20 MG TAB 2 tabs daily for 3 days, 1 t ab daily for 3 days, 1/2 tab daily for 2 days PREDNISONE 20 MG TAB 675106 PREDNISON E Inactive AZITHROMYCIN 250 MG TABS 2 po qd x 1 day, then 1 po qd x 4 days AZITHROMYCIN 250 MG TABS 1843581 AZITHROMYCIN Inactiv e PREDNISONE 20 MG TAB 2 tabs daily for 3 days, 1 t ab daily for 3 days, 1/2 tab daily for 2 days PREDNISONE 20 MG TAB 685948 PREDNISON E Inactive CEFDINIR 300 MG CAPS by mouth twice a day CEFDINIR 300 MG CAPS 457679 CEFDINIR Inactive TRIAMCINOLONE ACETONIDE 0.1 % OINT Apply to affected a reas TID for up to 2 weeks TRIAMCINOLONE ACETONIDE 0.1 % OINT 181385 6 TRIAMCINOLONE ACETONIDE Inactive PREDNISONE 20 MG TAB 2 tabs daily for 3 days, 1 t ab daily for 3 days, 1/2 tab daily for 2 days PREDNISONE 20 MG TAB 980886 PREDNISON E Inactive BACTRIM DS 800-160 MG TABS 1 po BID x 7 days 0 BACTRIM DS 800-160 MG TABS SULFAMETHOXAZOLE-TRIMETHOPRIM Inactive CIPRO 500 MG TAB 1 tablet by mouth twice daily CIPRO 500 MG TAB 484915 CIPROFLOXACIN HCL Inactive AZITHROMYCIN 250 MG TABS 2 po qd x 1 day, then 1 po qd x 4 days AZITHROMYCIN 250 MG TABS 1731473 AZITHROMYCIN Inactiv e Immunizations Vaccine Administration Date [...] - 3141-9 112 [lb_av] Weigh t Measured blood pressure, diastolic - 8462-4 71 mm[Hg] BP mathew blood pressure, systolic - 8480-6 109 mm[Hg] BP sys pulse rate E&M - 8867-4 75 /min H eart rate temperature E&M 98.6 [degF] Body temp erature weight E&M - 3141-9 106.44 [lb_av] Weigh t Measured Diagnostic Results Date Name Value Unit Range Description Immunizations: Immunization Administrati on - Challenge tests PPD results in mm < 5mm mm Lab Report: Comp. Metabolic Panel, Lipid Panel - Chemistry potassium, serum 4.1 mmol/L 3.5-5.2 sodium, serum 139 mmol/L 956-883 6014/10/24 alanine aminotransferase (SGPT), serum 12 U/L 12-78 aspartate aminotransferase (SGOT), serum 14 U/L 15-37 alkaline phosphatase, serum 64 U/L 50-136 calcium, serum 8.6 mg/dL 8.5-10.1 bilirubin, serum, total 0.80 mg/dL 0.00-1.00 cholesterol, serum 147 mg/dL 960-601 4147/10/24 triglyceride, serum, fasting 112 mg/dL 30-200 HDL cholesterol, serum 40 mg/dL 32-96 LDL cholesterol, serum 85 mg/dL 0-130 creatinine, serum 0.70 mg/dL 0.60-1.30 urea nitrogen, blood 11 mg/dL 7-18 blood glucose 78 mg/dL 65-110 carbon dioxide, venous blood 30.9 mmol/L 21.0-32 .0 chloride, serum 102 mmol/L 98-107 Lab Report: UADIP W/MICRO, AUTO - Chemis try RBC, urine, dipstick Negative Negative protein, total urine random Negative mg/dL Negative Lab Report: UADIP W/MICRO, AUTO - Urinal ysis glucose, urine, semiquantitative Negative Neg ative appearance, urine red-orange clear Clear urine color Unable to read macroscopic due t o interfering substance Colorless;Lightyellow;Straw;Yellow urobilinogen, urine, semiquantitative (dipstick) 1.0 Normal leukocyte esterase, urine, by dipstick Negative Negative nitrite, urine, semiquantitative Negative Neg ative appearance, urine Clear Clear specific gravity, urine 1.025 1.000-1.030 pH, urine, semiquantitative 7.0 5.0-8.5 urine color Yellow Colorless;Lightyellow;St raw;Yellow ketones, urine, by test strip Negative Negati ve bilirubin, urine Negative Negative Encounters Code Encounter Date Provider Facility CPT-33500 Level 3 Est. Patient 14:38:41 CDT Checo Conklin MD [facility] CPT-42527 Level 3 Est. Patient 15:22:03 COMPUTER ASSISTANT Thomas reynolds DO [facility] CPT-16870 Level 3 Est. Patient 13:34:17 COMPUTER ASSISTANT Checo Conklin MD [facility] CPT-72034 Level 3 Est. Patient 12:29:32 CDT Dangelo arroyo MD [facility] CPT-50016 Level 3 Est. Patient 16:53:02 CDT Checo Conklin MD [facility] CPT-92534 Level 3 Est. Patient 16:37:13 CDT Checo Conklin MD [facility] CPT-30912 Level 3 Est. Patient 16:16:59 CDT Paul Hamlin MD [facility] CPT-25137 Level 3 Est. Patient 14:20:13 CDT Dangelo arroyo MD [facility] CPT-79517 Level 4 Est. Patient 11:29:33 CDT Checo Conklin MD [facility] CPT-73551 Level 3 Est. Patient 17:08:31 CDT Checo Conklin MD [facility] CPT-78840 Level 3 Est. Patient 16:50:42 COMPUTER ASSISTANT Checo Conklin MD [facility] CPT-57491 Level 4 Est. Patient 09:26:08 COMPUTER ASSISTANT Checo Conklin MD [facility] CPT-00433 Level 3 Est. Patient 11:37:10 CDT Checo Conklin MD [facility] CPT-10821 Level 4 Est. Patient 14:07:38 CDT Checo Conklin MD [facility] CPT-30777 Level 3 Est. Patient 09:54:41 CDT Checo Conklin MD [facility] CPT-77183 Level 3 Est. Patient 11:10:54 CDT Paul Hamlin MD [facility] CPT-79027 Level 3 Est. Patient 14:16:56 COMPUTER ASSISTANT Checo Conklin MD [facility] CPT-67269 Level 3 Est. Patient 11:04:11 COMPUTER ASSISTANT Checo Conklin MD [facility] CPT-45008 Level 3 Est. Patient 17:09:26 CDT Dangelo arroyo MD [facility] CPT-89593 Level 3 Est. Patient 16:54:37 CDT Checo Conklin MD [facility] Procedures Code Procedure Name Date Entry Date Standard Desc ription CPT-OV Office Visit 11:31:28 CDT CPT-06271 Tubersol 09:39:29 CDT CPT-J2550 Phenergan 25 mg (Promethazine) 13:59:02 COMPUTER ASSISTANT CPT-J1885 Toradol 60 mg (Ketorolac) 13:59:02 COMPUTER ASSISTANT 2012
--- OUTSIDE RECORDS SUMMARY | 2019-09-29 02:09 | XMS REPORT | Clinical Summary ---
Author Author Admin, Bethany Gonzales Organization [employer] Address Unknown Phone Unavailable Allergies, Adverse Reactions, [...] po BID x 10 days 09/12 AMOXICILLIN [id number] No Longer Active Checo Conklin MD Activ e PAROXETINE HCL 20 MG ORAL TABS 0.5 po qd 6 days, then 1 po qd 09/02 PAROXETINE HCL 54186183263 Active Checo Conklin MD Active FLUTICASONE PROPIONATE 50 MCG/ACT NASAL SUSP 2 sprays/ nostril qd PRN Congestion/Allergies FLUTICASONE PROPIONATE 12201118191 Ac tive Checo Conklin MD Active MIRALAX ORAL POWD 8.5 to 17g po qd PRN Constipation POLYETHYLENE GLYCOL 3350 45230919355 Active Checo Conklin MD Active CLARITIN 10 MG TAB 1 tablet by mouth daily as needed for allergi es LORATADINE 15286195642 No Longer Active Checo Conklin MD Active BACTRIM DS 800-160 MG TAB 1 tab by mouth twice daily 2 TRIMETHOPRIM-SULFAMETHOXAZOLE 74106250463 No Longer Active Tanner Carrillo MD Active DIFLUCAN 150 MG TAB 1 tablet by mouth qod FLUCO NAZOLE 46169968292 No Longer Active Efren Medel APRN Active AZITHROMYCIN 250 MG TABS 2 po qd x 1 day, then 1 po qd x 4 days AZITHROMYCIN 51983192838 No Longer Active Efren Medel APRN Active FLAGYL 500 MG TAB 1 tablet by mouth bid METRONI DAZOLE 74146794761 No Longer Active Checo Conklin MD Active FOCALIN XR 10 MG ORAL [id number] 1 po q a.m. DEX METHYLPHENIDATE HCL 94083204307 Active Checo Conklin MD Active MAGNESIUM CITRATE 1.745 GM/30ML ORAL SOLN 150ml po BID PRN C onstipation MAGNESIUM CITRATE 92889436977 No Longer Active Checo Conklin MD Active BACTROBAN 2 % CREAM Apply to affected area BID for up to 10 days MUPIROCIN CALCIUM 57610194849 No Longer Active Checo Conklin MD Active HYDROCODONE-ACETAMINOPHEN 5-325 MG TABS 1 tab by mouth every 6 hours as needed HYDROCODONE-ACETAMINOPHEN 57366690207 No Longer Activ e Checo Conklin MD Active IBUPROFEN 800 MG TABS 1 tab every 8 hours with food 31/03/21 IBUPROFEN 33204972571 No Longer Active Checo Conklin MD Activ e DIFLUCAN 150 MG TAB 1 tablet by mouth if needed, hold until symptoms start FLUCONAZOLE 67252418458 No Longer Active Checo Ortiz MD Active BACTRIM DS 800-160 MG TAB 1 tab by mouth twice daily 2 TRIMETHOPRIM-SULFAMETHOXAZOLE 88228440882 No Longer Active Corry leong LPN Active HYDROCODONE-ACETAMINOPHEN 5-325 MG TABS 0.5 to 1 tab b y mouth every 6 hours as needed HYDROCODONE-ACETAMINOPHEN 22967814606 No Longer Active Checo Conklin MD Active ONDANSETRON [address] one tablet on tongue and allow to dissolve every 6 hours as needed for vomitting ONDANSETRO N 23119084698 No Longer Active Checo Conklin MD Active COMPRO 25 MG RECTAL SUPP insert or apply one supposit ory rectally as directed every 12 hours as needed for nausea PROCHLORPERA ZINE 07333098718 No Longer Active Checo Conklin MD Active SUMATRIPTAN SUCCINATE 100 MG ORAL TABS Take one PRN for migrane SUMATRIPTAN SUCCINATE 69670902175 No Longer Active Checo Conklin MD Active TRAVEL SICKNESS 25 MG ORAL CHEW chew and swallow one t ablet every 6 hours as needed MECLIZINE HCL 47676454527 No Longer Active Joe Conklin MD Active BUPROPION HCL ER (SR) 100 MG ORAL [id number] take one t ablet by mouth one time daily for one week then take 1 two times daily BUPROPION HCL 00373678031 No Longer Active Checo Conklin MD Activ e TERBINAFINE HCL 250 MG ORAL TABS take one table PO one time abran y TERBINAFINE HCL 76304374842 No Longer Active Checo Conklin MD Active METOCLOPRAMIDE HCL 10 MG ORAL TABS take one PO tid PRN nausea 20 29/12/14 METOCLOPRAMIDE HCL 29668947329 No Longer Active Checo Conklin MD Active DICLOFENAC SODIUM 75 MG TBEC 1 tablet by mouth twice daily P RN Knee pain DICLOFENAC SODIUM 69920382540 No Longer Active Checo Conklin MD Active LAMISIL 250 MG TAB 1 po qd TERBINAFINE HCL 548 66407664 No Longer Active Checo Conklin MD Active REGLAN 10 MG TAB 1 po TID PRN Nausea METOCLOPRA MIDE HCL 55657999976 No Longer Active Checo Conklin MD Active CELEXA 20 MG TABS 1 tablet by mouth daily CITALOPRAM HYDROBROMIDE 86124174143 No Longer Active Checo Conklin MD Activ e AZITHROMYCIN 250 MG TABS 2 po qd x 1 day, then 1 po qd x 4 days AZITHROMYCIN 20493784423 No Longer Active Checo Conklin MD Active HYDROCODONE-ACETAMINOPHEN 5-325 MG TABS 1 po q 6hr PRN Pain 2013 HYDROCODONE-ACETAMINOPHEN 14290378286 No Longer Active Lenora Conklin MD Active PHENAZOPYRIDINE HCL 200 MG TABS take 1 tab po TID for bladder pa in PHENAZOPYRIDINE HCL 71636098041 No Longer Active Checo Joshua Active CIPRO 500 MG TAB 1 tablet by mouth twice daily CIPROFLOXACIN HCL 92178494775 No Longer Active Dangelo Rangel MD Active HYDROCODONE-ACETAMINOPHEN 5-325 MG TABS 1/2 to 1 po q 4 hour s prn cough HYDROCODONE-ACETAMINOPHEN 72659566325 No Longer Activ e Dangelo Rangel MD Active BACTRIM DS 800-160 MG TABS 1 po BID x 7 days 0 SULFAMETHOXAZOLE-TRIMETHOPRIM 69870671587 No Longer Active Checo Conklin MD Active PREDNISONE 20 MG TAB 2 tabs daily for 3 days, 1 t ab daily for 3 days, 1/2 tab daily for 2 days PREDNISONE 42663344466 No Longer Active Checo Conklin MD Active TRIAMCINOLONE ACETONIDE 0.1 % OINT Apply to affected a reas TID for up to 2 weeks TRIAMCINOLONE ACETONIDE 97383268992 No Longer A ctive Checo Conklin MD Active CEFDINIR 300 MG CAPS by mouth twice a day CEFDI JAZZY 55119704696 No Longer Active Dangelo Rangel MD Active BUPROPION HCL (SMOKING DETER) 150 MG [id number] 1 a day for 1 week then 1 twice a day BUPROPION HCL (SMOKING DETER) 41859744727 No Lo nger Active Checo Conklin MD Active SIMVASTATIN 20 MG TABS 1 po qd SIMVASTATIN 6760228308 5 Active Checo Conklin MD Active CHANTIX STARTING MONTH KARTHIK 0.5 MG X 11 & 1 MG X 42 TAB S 0.5mg daily for 3 days, then 0.5mg BID for 4 days, then 1mg BID VARENICLINE TARTRATE 15445335026 No Longer Active Checo Conklin MD Activ e XANAX 0.5 MG TABS 1 po BID PRN anxiety ALPRAZOLAM 84608165675 Active Checo Conklin MD Active CONCERTA 18 MG CR-TABS 1 po q a.m. METHYLPHENID ATE HCL 20920320341 No Longer Active Checo Conklin MD Active AMBIEN 5 MG TAB 1 po qHS PRN Insomnia ZOLPIDEM TARTRATE 85613684809 Active Checo Conklin MD Active TRAZODONE HCL 100 MG TAB 0.5 to 1 po qHS PRN Insomnia TRAZODONE HCL 28584116476 No Longer Active Checo Conklin MD Acti ve FIORICET 325-50-40 MG TAB 1 tablet by mouth four times daily as needed [id number]-KOXLYLDXIC 07310559401 No Longer Active Checo Conklin MD Active PHENERGAN CREAM* 25mg applied to wrist q6hr PRN Nausea PHENERGAN CREAM* No Longer Active Checo Conklin MD A ctive FLONASE 50 MCG/ACT SUSP 1 spray each nostril am and hs FLUTICASONE PROPIONATE 52182897005 No Longer Active Checo Conklin MD Activ e ANTIPYRINE-BENZOCAINE 5.4-1.4 % SOLN 1-2 drops in affected ear BENZOCAINE-ANTIPYRINE 51472154794 No Longer Active Checo Conklin MD Active CEFDINIR 300 MG CAPS 1 po bid CEFDINIR 70236785 120 No Longer Active Checo Conklin MD Active PREDNISONE 20 MG TAB 2 tabs daily for 3 days, 1 t ab daily for 3 days, 1/2 tab daily for 2 days PREDNISONE 28137919430 No Longer Active Aracelis Conklin MD Active AZITHROMYCIN 250 MG TABS 2 po qd x 1 day, then 1 po qd x 4 days AZITHROMYCIN 29254061276 No Longer Active Checo Conklin MD Active PREDNISONE 20 MG TAB 2 tabs daily for 3 days, 1 t ab daily for 3 days, 1/2 tab daily for 2 days PREDNISONE 58155007718 No Longer Active Checo Conklin MD Active ZITHROMAX Z-KARTHIK 250 MG TABS 2 today, then 1 daily for 4 days 201 09/18/28 AZITHROMYCIN 93087612470 No Longer Active Paul Hamlin MD Active FOCALIN XR 10 MG [id number] 1 po q a.m. D EXMETHYLPHENIDATE HCL 47496327628 No Longer Active Paul Hamlin MD Activ e PERCOCET 10-325 MG TABS 1 tablet every 6 hours as needed for pain OXYCODONE-ACETAMINOPHEN 42975434502 No Longer Active Paul Hamlin MD Active LORTAB 5 5-500 MG TABS 1/2 to 1 tablet by mouth flaquito ry 4 hours as needed for pain HYDROCODONE-ACETAMINOPHEN 77948832409 No Longer Active Checo Conklin MD Active FOCALIN XR 15 MG [id number] 1 po q a.m. D EXMETHYLPHENIDATE HCL 44705782833 No Longer Active Checo Conklin MD Activ e ZOFRAN ODT 4 MG TBDP 1 po q6hr PRN Nausea ONDAN SETRON 87704547461 No Longer Active Checo Conklin MD Active PERCOCET 5-325 MG TABS 1 tablet by mouth every 6 hours as needed OXYCODONE-ACETAMINOPHEN 00762868274 No Longer Active Checo Conklin MD Active PYRIDIUM 200 MG TABS take 1 tab po TID prn urinary pain. 0 PHENAZOPYRIDINE HCL 71187840495 No Longer Active Checo Conklin MD Active FLUCONAZOLE 150 MG TABS take 1 tab po qday once 04/06 FLUCONAZOLE 54664153174 No Longer Active Dangelo Rangel MD Acti ve CIPRO 500 MG TAB 1 tablet by mouth twice daily CIPROFLOXACIN HCL 04129152853 No Longer Active Dangelo Rangel MD Active PYRIDIUM 200 MG TABS take 1 tab po TID prn urinary pain. 0 PYRIDIUM 200 MG TABS 4760737 PHENAZOPYRIDINE HCL Inactive PERCOCET 5-325 MG TABS 1 tablet by mouth every 6 hours as needed PERCOCET 5-325 MG TABS 9333001 OXYCODONE-ACETAMINOPHEN I nactive ZOFRAN ODT 4 MG TBDP 1 po q6hr PRN Nausea ZOFRAN ODT 4 MG TBDP 977474 ONDANSETRON Inactive FOCALIN XR 15 MG [id number] 1 po q a.m. F OCALIN XR 15 MG [id number] DEXMETHYLPHENIDATE HCL Inactive LORTAB 5 5-500 MG TABS 1/2 to 1 tablet by mouth flaquito ry 4 hours as needed for pain LORTAB 5 5-500 MG TABS HYDROCODONE-A CETAMINOPHEN Inactive PERCOCET 10-325 MG TABS 1 tablet every 6 hours as needed for pain PERCOCET 10-325 MG TABS 2910901 OXYCODONE-ACETAMINOPHEN Inactive FOCALIN XR 10 MG [id number] 1 po q a.m. F OCALIN XR 10 MG [id number] DEXMETHYLPHENIDATE HCL Inactive CEFDINIR 300 MG CAPS [...] PRN Insomnia TRAZODONE HCL 100 MG TAB 496636 TRAZODONE HCL Inactive CONCERTA 18 MG CR-TABS [...] s prn cough HYDROCODONE-ACETAMINOPHEN 5-325 MG TABS 611214 HYDROCODONE-ACETAMINOPHEN Inactive PHENAZOPYRIDINE HCL 200 MG TABS take 1 tab po TID for bladder pa in PHENAZOPYRIDINE HCL 200 MG TABS 6954262 PHENAZOPYRIDINE HCL Inactive HYDROCODONE-ACETAMINOPHEN 5-325 MG TABS 1 po q 6hr PRN Pain 2013 HYDROCODONE-ACETAMINOPHEN 5-325 MG TABS 461304 HYDROCODONE-ACETAMINOPHEN Inactive CELEXA 20 MG TABS 1 tablet by mouth daily CELEXA 20 MG TABS 384962 CITALOPRAM HYDROBROMIDE Inactive REGLAN 10 MG TAB 1 po TID PRN Nausea REGLAN 10 MG TAB 324566 METOCLOPRAMIDE HCL Inactive LAMISIL 250 MG TAB 1 po qd LAMISIL 250 MG TAB 392674 TERBINAFINE HCL Inactive DICLOFENAC SODIUM 75 MG TBEC 1 tablet by mouth twice daily P RN Knee pain DICLOFENAC SODIUM 75 MG TBEC 520947 DICLOFENAC S ODIUM Inactive METOCLOPRAMIDE HCL 10 MG ORAL TABS take one PO tid PRN nausea 20 29/12/14 METOCLOPRAMIDE HCL 10 MG ORAL TABS 104078 METOCLOPRAMID E HCL Inactive TERBINAFINE HCL 250 MG ORAL TABS take one table PO one time abran y TERBINAFINE HCL 250 MG ORAL TABS 549005 TERBINAFINE HCL Inactive BUPROPION HCL ER (SR) 100 MG ORAL [id number] take one t ablet by mouth one time daily for one week then take 1 two times daily BUPROPION HCL ER (SR) 100 MG ORAL [id number] BUPROPION HCL Inacti ve TRAVEL SICKNESS 25 MG ORAL CHEW chew and swallow one t ablet every 6 hours as needed TRAVEL SICKNESS 25 MG ORAL CHEW 647389 MECLIZINE HCL Inactive SUMATRIPTAN SUCCINATE 100 MG ORAL TABS Take one PRN for migrane SUMATRIPTAN SUCCINATE 100 MG ORAL TABS 800664 SUMATRIPT AN SUCCINATE Inactive COMPRO 25 MG RECTAL SUPP insert or apply one supposit ory rectally as directed every 12 hours as needed for nausea COMP RO 25 MG RECTAL SUPP 357594 PROCHLORPERAZINE Inactive ONDANSETRON [address] one tablet on tongue and allow to dissolve every 6 hours as needed for vomitting ON DANSETRON 8 MG ORAL TBDP 869921 ONDANSETRON Inactive HYDROCODONE-ACETAMINOPHEN 5-325 MG TABS 0.5 to 1 tab b y mouth every 6 hours as needed HYDROCODONE-ACETAMINOPHEN 5-325 MG TABS 8 76256 HYDROCODONE-ACETAMINOPHEN Inactive BACTRIM DS 800-160 MG TAB 1 tab by mouth twice daily 2 BACTRIM DS 800-160 MG TAB 607687 TRIMETHOPRIM-SULFAMETHOXAZOLE Inac tive DIFLUCAN 150 MG TAB 1 tablet by mouth if needed, hold until symptoms start DIFLUCAN 150 MG TAB 529151 FLUCONAZOLE Inactive IBUPROFEN 800 MG TABS 1 tab every 8 hours with food 31/03/21 IBUPROFEN 800 MG TABS 338884 IBUPROFEN Inactive HYDROCODONE-ACETAMINOPHEN 5-325 MG TABS 1 tab by mouth every 6 hours as needed HYDROCODONE-ACETAMINOPHEN 5-325 MG TABS 452311 HYDROCODONE-ACETAMINOPHEN Inactive BACTROBAN 2 % CREAM Apply to affected area BID for up to 10 days BACTROBAN 2 % CREAM 207674 MUPIROCIN CALCIUM Inactive MAGNESIUM CITRATE 1.745 GM/30ML ORAL SOLN 150ml po BID PRN C onstipation MAGNESIUM CITRATE 1.745 GM/30ML ORAL SOLN 622282 0 MAGNESIUM CITRATE Inactive DIFLUCAN 150 MG TAB 1 tablet by mouth qod DIFLUCAN 150 MG TAB 284589 FLUCONAZOLE Inactive BACTRIM DS 800-160 MG TAB 1 tab by mouth twice daily 2 BACTRIM DS 800-160 MG TAB 964035 TRIMETHOPRIM-SULFAMETHOXAZOLE Inac tive CLARITIN 10 MG TAB 1 tablet by mouth daily as needed for allergi es CLARITIN 10 MG TAB 608565 LORATADINE Inactive CIPRO 500 MG TAB 1 tablet by mouth twice daily CIPRO 500 MG TAB 127411 CIPROFLOXACIN HCL Inactive FLUCONAZOLE 150 MG TABS take 1 tab po qday once 04/06 FLUCONAZOLE 150 MG TABS 186583 FLUCONAZOLE Inactive ZITHROMAX Z-KARTHIK 250 MG TABS 2 today, then 1 daily for 4 days 201 09/18/28 ZITHROMAX Z-KARTHIK 250 MG TABS 7945272 AZITHROMYCIN Inac tive PREDNISONE 20 MG TAB 2 tabs daily for 3 days, 1 t ab daily for 3 days, 1/2 tab daily for 2 days PREDNISONE 20 MG TAB 395774 PREDNISON E Inactive AZITHROMYCIN 250 MG TABS 2 po qd x 1 day, then 1 po qd x 4 days AZITHROMYCIN 250 MG TABS 0949008 AZITHROMYCIN Inactiv e PREDNISONE 20 MG TAB 2 tabs daily for 3 days, 1 t ab daily for 3 days, 1/2 tab daily for 2 days PREDNISONE 20 MG TAB 708549 PREDNISON E Inactive CEFDINIR 300 MG CAPS by mouth twice a day CEFDINIR 300 MG CAPS 404394 CEFDINIR Inactive TRIAMCINOLONE ACETONIDE 0.1 % OINT Apply to affected a reas TID for up to 2 weeks TRIAMCINOLONE ACETONIDE 0.1 % OINT 650481 6 TRIAMCINOLONE ACETONIDE Inactive PREDNISONE 20 MG TAB 2 tabs daily for 3 days, 1 t ab daily for 3 days, 1/2 tab daily for 2 days PREDNISONE 20 MG TAB 591166 PREDNISON E Inactive BACTRIM DS 800-160 MG TABS 1 po BID x 7 days 0 BACTRIM DS 800-160 MG TABS 779507 SULFAMETHOXAZOLE-TRIMETHOPRIM Inactive CIPRO 500 MG TAB 1 tablet by mouth twice daily CIPRO 500 MG TAB 316386 CIPROFLOXACIN HCL Inactive AZITHROMYCIN 250 MG TABS 2 po qd x 1 day, then 1 po qd x 4 days AZITHROMYCIN 250 MG TABS 7583216 AZITHROMYCIN Inactiv e FLAGYL 500 MG TAB 1 tablet by mouth bid FLAGYL 500 MG TAB 206910 METRONIDAZOLE Inactive AZITHROMYCIN 250 MG TABS 2 po qd x 1 day, then 1 po qd x 4 days AZITHROMYCIN 250 MG TABS 9752580 AZITHROMYCIN Inactiv e AMOXICILLIN 500 MG ORAL CAPS 2 po BID x 10 days 09/12 AMOXICILLIN 500 MG ORAL CAPS 218065 AMOXICILLIN Inactive Immunizations Vaccine Administration Date Value [...] Report: CBC W/DIFF, Comp. Metabolic Panel, Qual [facility] [place] - Chemistry sodium, serum 139 mmol/L 354-601 9364/10/21 carbon dioxide, venous blood 33.5 mmol/L 21.0-32 [...] Report: CBC W/DIFF, Comp. Metabolic Panel, Qual [facility] [place] - Hematology leukocyte count, blood 7.9 10^3/MM^3 [...] PANEL - Chemistry cholesterol, serum 192 mg/dL 327-967 9273/02/20 HDL cholesterol, serum 31 mg/dL > OR [...] 11 .0-15.0 platelet count 218 THOUSAND/UL 10*3/mm3 680-762 7982/02/20 mean platelet volume 9.7 fL 7.5-12.5 Lab Report: Chlamydia/GC APTIMA/08287 - Lab chlamydia DNA probe NOT DETECTED NOT DETECTED Lab Report: Chlamydia/GC APTIMA/68124 - Microbiology Neisseria gonorrhoeae DNA probe NOT DETECTED NO T DETECTED Lab Report: Comp. Metabolic Panel, Thyro id Stimulating Hormone (L), Eryt ... - Chemistry sodium, serum 137 mmol/L 883-214 0224/05/27 carbon dioxide, venous blood 29.1 mmol/L 21.0-32 [...] 5.0-8.5 Encounters Code Encounter Date Provider Facility CPT-83945 Level 4 Est. Patient 11:08:12 [employer] Checo Conklin MD [facility] CPT-50750 Level 4 Est. Patient 16:06:48 [employer] Checo Conklin MD [facility] CPT-98741 Level 3 Est. Patient 09:11:49 CDT Efren almendarez [facility] CPT-57558 Level 2 Est. Patient 19:53:27 CDT Tanner hill MD [facility] CPT-67699 Level 3 Est. Patient 09:15:34 CDT Efren almendarez [facility] CPT-55275 Level 3 Est. Patient 11:28:51 [employer] Efren almendarez [facility] CPT-41692 Level 4 Est. Patient 13:55:46 [employer] Checo Conklin MD [facility] CPT-64921 Level 4 Est. Patient 17:10:53 CDT Checo Conklin MD [facility] CPT-31456 Level 3 Est. Patient 15:56:22 CDT Checo Conklin MD [facility] CPT-43412 Level 3 Est. Patient 15:29:07 CDT Checo Conklin MD [facility] CPT-38173 Level 3 Est. Patient 14:38:41 CDT Checo Conklin MD [facility] CPT-18409 Level 3 Est. Patient 15:22:03 [employer] Thomas reynolds DO [facility] CPT-07535 Level 3 Est. Patient 13:34:17 [employer] Checo Conklin MD [facility] CPT-83993 Level 3 Est. Patient 12:29:32 CDT Dangelo arroyo MD [facility] CPT-78058 Level 3 Est. Patient 16:53:02 CDT Checo Conklin MD [facility] CPT-06233 Level 3 Est. Patient 16:37:13 CDT Checo Conklin MD [facility] CPT-67786 Level 3 Est. Patient 16:16:59 CDT Paul Hamlin MD [facility] CPT-43173 Level 3 Est. Patient 14:20:13 CDT Dangelo arroyo MD [facility] CPT-10959 Level 4 Est. Patient 11:29:33 CDT Checo Conklin MD [facility] CPT-45488 Level 3 Est. Patient 17:08:31 CDT Checo Conklin MD [facility] CPT-23636 Level 3 Est. Patient 16:50:42 [employer] Checo Conklin MD [facility] CPT-51034 Level 4 Est. Patient 09:26:08 [employer] Checo Conklin MD [facility] CPT-92906 Level 3 Est. Patient 11:37:10 CDT Checo Conklin MD [facility] CPT-65616 Level 4 Est. Patient 14:07:38 CDT Checo Conklin MD [facility] CPT-83974 Level 3 Est. Patient 09:54:41 CDT Checo Conklin MD [facility] CPT-14917 Level 3 Est. Patient 11:10:54 CDT Paul Hamlin MD [facility] CPT-32696 Level 3 Est. Patient 14:16:56 [employer] Checo Conklin MD [facility] CPT-73215 Level 3 Est. Patient 11:04:11 [employer] Checo Conklin MD [facility] CPT-59446 Level 3 Est. Patient 17:09:26 CDT Dangelo arroyo MD [facility] CPT-36091 Level 3 Est. Patient 16:54:37 CDT Checo Conklin MD [facility] Procedures Code Procedure Name Date Entry Date Standard Desc ription CPT-82547 UA w micro - LAB USE ONLY 17:06:46 CDT 2015 CPT-87947 [facility] Qual - LAB USE ONLY 17:06:46 CDT 05/06 CPT-70523 CMP - LAB USE ONLY 17:06:46 CDT CPT-95508 CBC with Diff - LAB USE ONLY 17:06:45 CDT 2 CPT-07141 Venipuncture Draw Fee 17:06:45 CDT CPT-LR Lesion Removal 19:53:27 CDT CPT-OV Office Visit 11:31:28 CDT CPT-73291 Tubersol 09:39:29 CDT CPT-J2550 Phenergan 25 mg (Promethazine) 13:59:02 [employer] CPT-J1885 Toradol 60 mg (Ketorolac) 13:59:02 [employer] 2012
--- OUTSIDE RECORDS SUMMARY | 2019-09-29 02:09 | XMS REPORT | Clinical Summary ---
Author Author Admin, Bethany Gonzales Organization [employer] Address Unknown Phone Unavailable Allergies, Adverse Reactions, [...] LOWER QUADRANT ICD-789.03 Inactive Checo Conklin MD FH BREAST CANCER ICD-V16.3 Inactive Checo Joshua PHARYNGITIS ICD-462 Inactive Checo Conklin MD Onychomycosis, toenails ICD-110.1 Inactive Aracelis Conklin MD Hypoglycemia, unspecified ICD-251.2 Inactive Checo Conklin MD Insomnia ICD-780.52 Inactive Checo Joshua Breast mass, right ICD-611.72 Inactive Checo Conklin MD HEADACHE, TENSION ICD-307.81 Inactive Checo Conklin MD Sinusitis ICD-461.9 Inactive Checo Conklin MD OTITIS MEDIA-RIGHT ICD-382.9 Inactive Checo Conklin MD Carbuncle/furuncle NOS ICD-680.9 [...] Insect bite ICD-919.4 Inactive Checo Conklin MD Pedal edema ICD-782.3 [...] TABLET 1 po qd PAR OXETINE HCL 13297738938 Active Checo Conklin MD Active MIRALAX ORAL POWDER 8.5 to 17g po qd PRN Constipation POLYETHYLENE GLYCOL 3350 [id number] No Longer Active Checo Conklin MD Active PROTONIX 40 MG ORAL TABLET DELAYED RELEASE 1 pill by m outh daily, for acid reflux PANTOPRAZOLE SODIUM 96110614777 No Longer Activ e Corry Méndez LPN Active FLAGYL 500 MG ORAL TABLET 1 tablet by mouth bid 08/29 METRONIDAZOLE 20707289077 No Longer Active Corry Méndez LPN Active CLARITHROMYCIN 500 MG ORAL TABLET 1 tab po BID x 14 days CLARITHROMYCIN 07874078514 No Longer Active Corry Méndez LPN Active AMOXICILLIN 500 MG ORAL CAPSULE 2 po BID x 14 days for H. Pylori AMOXICILLIN 40887025641 No Longer Active Corry Méndez LPN Active FLUTICASONE PROPIONATE 50 MCG/ACT NASAL SUSPENSION 2 s prays/nostril qd PRN Congestion/Allergies FLUTICASONE PROPIONATE 9147246906 9 No Longer Active Checo Conklin MD Active AMOXICILLIN 500 MG ORAL CAPSULE 2 po BID x 10 days 201 01/15/27 AMOXICILLIN 26900101333 No Longer Active Checo Conklin MD Activ e CLARITIN 10 MG ORAL TABLET 1 tablet by mouth daily as needed for allergies LORATADINE 71374785735 No Longer Active Checo Ortiz MD Active BACTRIM DS 800-160 MG ORAL TABLET 1 tab by mouth twice daily 201 12/19/26 TRIMETHOPRIM-SULFAMETHOXAZOLE 45667183025 No Longer Active Ragini Carrillo MD Active DIFLUCAN 150 MG ORAL TABLET 1 tablet by mouth qod 2015 FLUCONAZOLE 79180461641 No Longer Active Efren Medel APRN Act mike AZITHROMYCIN 250 MG ORAL TABLET 2 po qd x 1 day, then 1 po q d x 4 days AZITHROMYCIN 41650382602 No Longer Active Efren flores APRN Active FLAGYL 500 MG ORAL TABLET 1 tablet by mouth bid 04/13 METRONIDAZOLE 14638310215 No Longer Active Checo Conklin MD Acti ve FOCALIN XR 10 MG ORAL CAPSULE EXTENDED RELEASE 24 HOUR 1 po q a.m. DEXMETHYLPHENIDATE HCL 09486895826 Active Checo Conklin MD Active MAGNESIUM CITRATE 1.745 GM/30ML ORAL SOLUTION 150ml po BID P RN Constipation MAGNESIUM CITRATE 30292004375 No Longer Active Checo Conklin MD Active BACTROBAN 2 % EXTERNAL CREAM Apply to affected area BID for up to 10 days MUPIROCIN CALCIUM 14889273734 No Longer Active Checo Conklin MD Active HYDROCODONE-ACETAMINOPHEN 5-325 MG ORAL TABLET 1 tab b y mouth every 6 hours as needed HYDROCODONE-ACETAMINOPHEN 78255916266 No Longer Active Checo Conklin MD Active IBUPROFEN 800 MG ORAL TABLET 1 tab every 8 hours with food 03/20 IBUPROFEN 67671157701 No Longer Active Checo Conklin MD Active DIFLUCAN 150 MG ORAL TABLET 1 tablet by mouth if neede d, hold until symptoms start FLUCONAZOLE 19068609709 No Longer Active Checo Conklin MD Active BACTRIM DS 800-160 MG ORAL TABLET 1 tab by mouth twice daily 201 11/23/03 TRIMETHOPRIM-SULFAMETHOXAZOLE 30976474619 No Longer Active K bernice Méndez, MBA INTERN Active HYDROCODONE-ACETAMINOPHEN 5-325 MG ORAL TABLET 0.5 to 1 tab by mouth every 6 hours as needed HYDROCODONE-ACETAMINOPHEN 98288055942 No Longer Active Checo Conklin MD Active ONDANSETRON 8 MG ORAL TABLET DISINTEGRATING place one tablet on tongue and allow to dissolve every 6 hours as needed for vomitting ONDANSETRON 00333618616 No Longer Active Checo Conklin MD Activ e COMPRO 25 MG RECTAL SUPPOSITORY insert or apply one garza ppository rectally as directed every 12 hours as needed for nausea PROCHLORPERAZINE 84070225057 No Longer Active Checo Conklin MD A ctive SUMATRIPTAN SUCCINATE 100 MG ORAL TABLET Take one PRN for migran e SUMATRIPTAN SUCCINATE 15114918792 No Longer Active Checo Conklin MD Active TRAVEL SICKNESS 25 MG ORAL TABLET CHEWABLE chew and sw allow one tablet every 6 hours as needed MECLIZINE HCL 14216822667 No Longer A ctive Checo Conklin MD Active BUPROPION HCL ER (SR) 100 MG ORAL TABLET EXTENDED RELE ASE 12 HOUR take one tablet by mouth one time daily for one week then take 1 two times daily BUPROPION HCL 62980890032 No Longer Active Checo gallagher MD Active TERBINAFINE HCL 250 MG ORAL TABLET take one table PO one time da moises TERBINAFINE HCL 96372205625 No Longer Active Checo Conklin MD Active METOCLOPRAMIDE HCL 10 MG ORAL TABLET take one PO tid PRN nausea METOCLOPRAMIDE HCL 18008396525 No Longer Active Checo Conklin MD Active DICLOFENAC SODIUM 75 MG ORAL TABLET DELAYED RELEASE 1 tablet by mouth twice daily PRN Knee pain DICLOFENAC SODIUM 77696004585 No Longer Active Checo Conklin MD Active LAMISIL 250 MG ORAL TABLET 1 po qd TERBINAFI NE HCL 22393212557 No Longer Active Checo Conklin MD Active REGLAN 10 MG ORAL TABLET 1 po TID PRN Nausea 3 METOCLOPRAMIDE HCL 69076305510 No Longer Active Checo Conklin MD Active CELEXA 20 MG ORAL TABLET 1 tablet by mouth daily 09/26 CITALOPRAM HYDROBROMIDE 40852130014 No Longer Active Checo Conklin MD Active AZITHROMYCIN 250 MG ORAL TABLET 2 po qd x 1 day, then 1 po q d x 4 days AZITHROMYCIN 69970147761 No Longer Active Checo Ortiz MD Active HYDROCODONE-ACETAMINOPHEN 5-325 MG ORAL TABLET 1 po q 6hr PRN Pa in HYDROCODONE-ACETAMINOPHEN 76150703818 No Longer Active Lenora Conklin MD Active PHENAZOPYRIDINE HCL 200 MG ORAL TABLET take 1 tab po TID for bladder pain PHENAZOPYRIDINE HCL 49164900590 No Longer Active Joe Conklin MD Active CIPRO 500 MG ORAL TABLET 1 tablet by mouth twice daily CIPROFLOXACIN HCL 40772552257 No Longer Active Dangelo Rangel MD Active HYDROCODONE-ACETAMINOPHEN 5-325 MG ORAL TABLET 1/2 to 1 po q 4 hours prn cough HYDROCODONE-ACETAMINOPHEN 48724153382 No Longer Activ e Dangelo Rangel MD Active BACTRIM DS 800-160 MG ORAL TABLET 1 po BID x 7 days 29/04/10 SULFAMETHOXAZOLE-TRIMETHOPRIM 92005266830 No Longer Active Checo Conklin MD Active PREDNISONE 20 MG ORAL TABLET 2 tabs daily for 3 days, 1 tab daily for 3 days, 1/2 tab daily for 2 days PREDNISONE 72018779791 No Longer Active Checo Conklin MD Active TRIAMCINOLONE ACETONIDE 0.1 % EXTERNAL OINTMENT Apply to affected areas TID for up to 2 weeks TRIAMCINOLONE ACETONIDE 50364338004 No Longer Active Checo Conklin MD Active CEFDINIR 300 MG ORAL CAPSULE by mouth twice a day 2013 CEFDINIR 34029461643 No Longer Active Dangelo Rangel MD Acti ve BUPROPION HCL ER (SMOKING DET) 150 MG ORAL TABLET EXTE NDED RELEASE 12 HOUR 1 a day for 1 week then 1 twice a day BUPROPION HCL (SMOKING DETER) 11851394471 No Longer Active Checo Conklin MD Active SIMVASTATIN 20 MG ORAL TABLET 1 po qd SIMVASTAT IN 83110168080 Active Checo Conklin MD Active CHANTIX STARTING MONTH KARTHIK 0.5 MG X 11 & 1 MG X 42 ORA L TABLET 0.5mg daily for 3 days, then 0.5mg BID for 4 days, then 1mg BID VARENICLINE TARTRATE 09603665687 No Longer Active Checo Conklin MD Activ e XANAX 0.5 MG ORAL TABLET 1 po BID PRN anxiety A LPRAZOLAM 79968663669 Active Checo Conklin MD Active CONCERTA 18 MG ORAL TABLET EXTENDED RELEASE 1 po q a.m. METHYLPHENIDATE HCL 46280472218 No Longer Active Checo Conklin MD Active AMBIEN 5 MG ORAL TABLET 1 po qHS PRN Insomnia Z OLPIDEM TARTRATE 90544032262 Active Checo Conklin MD Active TRAZODONE HCL 100 MG ORAL TABLET 0.5 to 1 po qHS PRN Insomnia 20 30/07/08 TRAZODONE HCL 72097102689 No Longer Active Checo Conklin MD Active FIORICET 325-50-40 MG TAB 1 tablet by mouth four times daily as needed [id number] 97899501673 No Longer Active Checo Conklin MD Active PHENERGAN CREAM* 25mg applied to wrist q6hr PRN Nausea PHENERGAN CREAM* No Longer Active Checo Conklin MD A ctive FLONASE 50 MCG/ACT NASAL SUSPENSION 1 spray each nostril am and hs FLUTICASONE PROPIONATE 52954764898 No Longer Active Checo Conklin MD Active ANTIPYRINE-BENZOCAINE 5.4-1.4 % OTIC SOLUTION 1-2 drops in affec yohannes ear BENZOCAINE-ANTIPYRINE 73249777441 No Longer Active Checo Conklin MD Active CEFDINIR 300 MG ORAL CAPSULE 1 po bid CEFDINIR 01657906285 No Longer Active Checo Conklin MD Active PREDNISONE 20 MG ORAL TABLET 2 tabs daily for 3 days, 1 tab daily for 3 days, 1/2 tab daily for 2 days PREDNISONE 06430810455 No Longer Active Checo Conklin MD Active AZITHROMYCIN 250 MG ORAL TABLET 2 po qd x 1 day, then 1 po q d x 4 days AZITHROMYCIN 05986959916 No Longer Active Checo Ortiz MD Active PREDNISONE 20 MG ORAL TABLET 2 tabs daily for 3 days, 1 tab daily for 3 days, 1/2 tab daily for 2 days PREDNISONE 85825302695 No Longer Active Checo Conklin MD Active ZITHROMAX Z-KARTHIK 250 MG ORAL TABLET 2 today, then 1 daily for 4 d ays AZITHROMYCIN 69954795189 No Longer Active Paul Hamlin MD Active FOCALIN XR 10 MG ORAL CAPSULE EXTENDED RELEASE 24 HOUR 1 po q a. m. DEXMETHYLPHENIDATE HCL 82201383424 No Longer Active Paul Hamlin MD Active PERCOCET 10-325 MG ORAL TABLET 1 tablet every 6 hours as needed for pain OXYCODONE-ACETAMINOPHEN 93631811759 No Longer Active Paul Hamlin MD Active LORTAB 5-500 MG ORAL TABLET 1/2 to 1 tablet by mouth e very 4 hours as needed for pain HYDROCODONE-ACETAMINOPHEN 98790113048 No Longer Active Checo Conklin MD Active FOCALIN XR 15 MG ORAL CAPSULE EXTENDED RELEASE 24 HOUR 1 po q a. m. DEXMETHYLPHENIDATE HCL 30171993744 No Longer Active Checo Conklin MD Active ZOFRAN ODT 4 MG ORAL TABLET DISINTEGRATING 1 po q6hr PRN Nausea ONDANSETRON 75110599064 No Longer Active Checo Conklin MD Active PERCOCET 5-325 MG ORAL TABLET 1 tablet by mouth every 6 hour s as needed OXYCODONE-ACETAMINOPHEN 69159508043 No Longer Active Checo Conklin MD Active PYRIDIUM 200 MG ORAL TABLET take 1 tab po TID prn urinary pain. PHENAZOPYRIDINE HCL 14173192611 No Longer Active Checo Joshua Active FLUCONAZOLE 150 MG ORAL TABLET take 1 tab po qday once FLUCONAZOLE 51326252401 No Longer Active Dangelo Rangel MD Acti ve CIPRO 500 MG ORAL TABLET 1 tablet by mouth twice daily CIPROFLOXACIN HCL 76452999114 No Longer Active Dangelo Rangel MD Active PYRIDIUM 200 MG ORAL TABLET take 1 tab po TID prn urinary pain. PYRIDIUM 200 MG ORAL TABLET 4510730 PHENAZOPYRIDINE HCL Inactive PERCOCET 5-325 MG ORAL TABLET 1 tablet by mouth every 6 hour s as needed PERCOCET 5-325 MG ORAL TABLET 7428675 OXYCODONE-ACETAMINOPHEN Inactive ZOFRAN ODT 4 MG ORAL TABLET DISINTEGRATING 1 po q6hr PRN Nausea ZOFRAN ODT 4 MG ORAL TABLET DISINTEGRATING 234265 ONDAN SETRON Inactive FOCALIN XR 15 MG ORAL CAPSULE EXTENDED RELEASE 24 HOUR 1 po q a. m. FOCALIN XR 15 MG ORAL CAPSULE EXTENDED RELEASE 24 HOUR DEXMETHYLPHENIDATE HCL Inactive LORTAB 5-500 MG ORAL TABLET 1/2 to 1 tablet by mouth e very 4 hours as needed for pain LORTAB 5-500 MG ORAL TABLET 624744 HYDROCODONE-ACETAMINOPHEN Inactive PERCOCET 10-325 MG ORAL TABLET 1 tablet every 6 hours as needed for pain PERCOCET 10-325 MG ORAL TABLET 3195249 OXYCODONE-ACETAMI NOPHEN Inactive FOCALIN XR 10 MG ORAL CAPSULE EXTENDED RELEASE 24 HOUR 1 po q a. m. FOCALIN XR 10 MG ORAL CAPSULE EXTENDED RELEASE 24 HOUR DEXMETHYLPHENIDATE HCL Inactive CEFDINIR 300 MG ORAL CAPSULE 1 po bid CEFDINI R 300 MG ORAL CAPSULE 438388 CEFDINIR Inactive ANTIPYRINE-BENZOCAINE 5.4-1.4 % OTIC SOLUTION 1-2 drops in affec yohannes ear ANTIPYRINE-BENZOCAINE 5.4-1.4 % OTIC SOLUTION 919115 BENZOCAINE-ANTIPYRINE Inactive FLONASE 50 MCG/ACT NASAL SUSPENSION 1 spray each nostril am and hs FLONASE 50 MCG/ACT NASAL SUSPENSION 2039752 FLUTICASONE PROPIONATE I nactive PHENERGAN CREAM* 25mg applied to wrist q6hr PRN Nausea PHENERGAN CREAM* Inactive FIORICET 325-50-40 MG TAB 1 tablet by mouth four times daily as needed FIORICET 325-50-40 MG TAB ACETAMINOPHEN-C AFF-BUTALBITAL Inactive TRAZODONE HCL 100 MG ORAL TABLET 0.5 to 1 po qHS PRN Insomnia 20 30/07/08 TRAZODONE HCL 100 MG ORAL TABLET 641174 TRAZODONE HCL Inactive CONCERTA 18 MG ORAL [...] cough HYDROCODONE-ACETAMINOPHEN 5-325 MG ORAL TABLET 8 97968 HYDROCODONE-ACETAMINOPHEN Inactive PHENAZOPYRIDINE HCL 200 MG ORAL TABLET take 1 tab po TID for bladder pain PHENAZOPYRIDINE HCL 200 MG ORAL TABLET 3057493 PHENAZOPYRIDINE HCL Inactive HYDROCODONE-ACETAMINOPHEN 5-325 MG ORAL TABLET 1 po q 6hr PRN Pa in HYDROCODONE-ACETAMINOPHEN 5-325 MG ORAL TABLET 910453 HYDROCODONE-ACETAMINOPHEN Inactive CELEXA 20 MG ORAL TABLET 1 tablet by mouth daily 09/26 CELEXA 20 MG ORAL TABLET 706787 CITALOPRAM HYDROBROMIDE Inactive REGLAN 10 MG ORAL TABLET 1 po TID PRN Nausea 3 REGLAN 10 MG ORAL TABLET 833746 METOCLOPRAMIDE HCL Inactive LAMISIL 250 MG ORAL TABLET 1 po qd L AMISIL 250 MG ORAL TABLET 350125 TERBINAFINE HCL Inactive DICLOFENAC SODIUM 75 MG ORAL TABLET DELAYED RELEASE 1 tablet by mouth twice daily PRN Knee pain DICLOFENAC SODIUM 75 MG ORAL TABLET DELAYED RELEASE 396386 DICLOFENAC SODIUM Inactive METOCLOPRAMIDE HCL 10 MG ORAL TABLET take one PO tid PRN nausea METOCLOPRAMIDE HCL 10 MG ORAL TABLET 880767 METOCLOPRAM ZACH HCL Inactive TERBINAFINE HCL 250 MG ORAL TABLET take one table PO one time da moises TERBINAFINE HCL 250 MG ORAL TABLET 331700 TERBINAFINE H CL Inactive BUPROPION HCL ER [...] SICKNESS 25 M G ORAL TABLET CHEWABLE 292912 MECLIZINE HCL Inactive SUMATRIPTAN SUCCINATE 100 MG ORAL TABLET Take one PRN for migran e SUMATRIPTAN SUCCINATE 100 MG ORAL TABLET 832725 SUMATRIPTAN SUCCINATE Inactive COMPRO 25 MG RECTAL SUPPOSITORY insert or apply one garza ppository rectally as directed every 12 hours as needed for nausea COMPRO 25 MG RECTAL SUPPOSITORY 013744 PROCHLORPERAZINE Inactive ONDANSETRON 8 MG ORAL TABLET DISINTEGRATING place one tablet on tongue and allow to dissolve every 6 hours as needed for vomitting ONDANSETRON 8 MG ORAL TABLET DISINTEGRATING 694216 ONDANSETRON Inactive HYDROCODONE-ACETAMINOPHEN 5-325 MG ORAL TABLET 0.5 to 1 tab by mouth every 6 hours as needed HYDROCODONE-ACETAMIN OPHEN 5-325 MG ORAL TABLET 018353 HYDROCODONE-ACETAMINOPHEN Inactive BACTRIM DS 800-160 MG ORAL TABLET 1 tab by mouth twice daily 201 11/23/03 BACTRIM DS 800-160 MG ORAL TABLET 659669 TRIMETHOPRIM-SULFAMETHOXAZOLE Inactive DIFLUCAN 150 MG ORAL TABLET [...] as needed HYDROCODONE-ACETAMINOPHEN 5-325 MG ORAL TABLET 731154 HYDROCODONE-ACETAMINOPHEN Inactive BACTROBAN 2 % EXTERNAL CREAM Apply to affected area BID for up to 10 days BACTROBAN 2 % EXTERNAL CREAM 010250 MUPIROCIN CA LCIUM Inactive MAGNESIUM CITRATE 1.745 GM/30ML ORAL SOLUTION 150ml po BID P RN Constipation MAGNESIUM CITRATE 1.745 GM/30ML ORAL SOLUTION 10 24322 MAGNESIUM CITRATE Inactive DIFLUCAN 150 MG ORAL TABLET 1 tablet by mouth qod 2015 DIFLUCAN 150 MG ORAL TABLET 598974 FLUCONAZOLE Inactive BACTRIM DS 800-160 MG ORAL TABLET 1 tab by mouth twice daily 201 12/19/26 BACTRIM DS 800-160 MG ORAL TABLET 457311 TRIMETHOPRIM-SULFAMETHOXAZOLE Inactive CLARITIN 10 MG ORAL TABLET 1 tablet by mouth daily as needed for allergies CLARITIN 10 MG ORAL TABLET 314873 LORATADINE I nactive FLUTICASONE PROPIONATE 50 MCG/ACT NASAL SUSPENSION 2 s prays/nostril qd PRN Congestion/Allergies FLUTICASONE PROPION ATE 50 MCG/ACT NASAL SUSPENSION 5292332 FLUTICASONE PROPIONATE Inactive MIRALAX ORAL POWDER 8.5 to 17g po qd PRN Constipation MIRALAX ORAL POWDER 157949 POLYETHYLENE GLYCOL 3350 Inactive CIPRO 500 MG ORAL TABLET 1 tablet by mouth twice daily CIPRO 500 MG ORAL TABLET 343398 CIPROFLOXACIN HCL Inactive FLUCONAZOLE 150 MG ORAL TABLET take 1 tab po qday once FLUCONAZOLE 150 MG ORAL TABLET 719256 FLUCONAZOLE Inactive ZITHROMAX Z-KARTHIK 250 MG ORAL TABLET 2 today, then 1 daily for 4 d ays ZITHROMAX Z-KARTHIK 250 MG ORAL TABLET 010473 AZITHROMYCIN Inactive PREDNISONE 20 MG ORAL TABLET 2 tabs daily for 3 days, 1 tab daily for 3 days, 1/2 tab daily for 2 days PREDNISONE 20 MG ORAL T ABLET 679709 PREDNISONE Inactive AZITHROMYCIN 250 MG ORAL TABLET 2 po qd x 1 day, then 1 po q d x 4 days AZITHROMYCIN 250 MG ORAL TABLET 049479 AZITHROMY SPARKLE Inactive PREDNISONE 20 MG ORAL TABLET 2 tabs daily for 3 days, 1 tab daily for 3 days, 1/2 tab daily for 2 days PREDNISONE 20 MG ORAL TABLET 438577 PREDNISONE Inactive CEFDINIR 300 MG ORAL CAPSULE by mouth twice a day 2013 CEFDINIR 300 MG ORAL CAPSULE 422930 CEFDINIR Inactive TRIAMCINOLONE ACETONIDE 0.1 % EXTERNAL OINTMENT Apply to affected areas TID for up to 2 weeks TRIAMCINOLONE ACETON ZACH 0.1 % EXTERNAL OINTMENT 7099368 TRIAMCINOLONE ACETONIDE Inactive PREDNISONE 20 MG ORAL TABLET 2 tabs daily for 3 days, 1 tab daily for 3 days, 1/2 tab daily for 2 days PREDNISONE 20 MG ORAL T ABLET 233007 PREDNISONE Inactive BACTRIM DS 800-160 MG ORAL TABLET 1 po BID x 7 days 29/04/10 BACTRIM DS 800-160 MG ORAL TABLET 345800 SULFAMETHOXAZOLE-TRIMETHOP RIM Inactive CIPRO 500 MG ORAL TABLET 1 tablet by mouth twice daily CIPRO 500 MG ORAL TABLET 801514 CIPROFLOXACIN HCL Inactive AZITHROMYCIN 250 MG ORAL TABLET 2 po qd x 1 day, then 1 po q d x 4 days AZITHROMYCIN 250 MG ORAL TABLET 805643 AZITHROMY SPARKLE Inactive FLAGYL 500 MG ORAL TABLET 1 tablet by mouth bid 04/13 FLAGYL 500 MG ORAL TABLET 349452 METRONIDAZOLE Inactive AZITHROMYCIN 250 MG ORAL TABLET 2 po qd x 1 day, then 1 po q d x 4 days AZITHROMYCIN 250 MG ORAL TABLET 394533 AZITHROMY SPARKLE Inactive AMOXICILLIN 500 MG ORAL CAPSULE 2 po BID x 10 days 201 01/15/27 AMOXICILLIN 500 MG ORAL CAPSULE 515920 AMOXICILLIN Inactive AMOXICILLIN 500 MG ORAL CAPSULE 2 po BID x 14 days for H. Pylori AMOXICILLIN 500 MG ORAL CAPSULE 912492 AMOXICILLIN Inactive CLARITHROMYCIN 500 MG ORAL TABLET 1 tab po BID x 14 days CLARITHROMYCIN 500 MG ORAL TABLET 383139 CLARITHROMYCIN Inacti ve FLAGYL 500 MG ORAL TABLET 1 tablet by mouth bid 08/29 FLAGYL 500 MG ORAL TABLET 912834 METRONIDAZOLE Inactive PROTONIX 40 MG ORAL TABLET DELAYED RELEASE 1 pill by m outh daily, for acid reflux PROTONIX 40 MG ORAL TABLET DELAYED RELEAS E 814922 PANTOPRAZOLE SODIUM Inactive Immunizations Vaccine Administration Date [...] PANEL - Chemistry cholesterol, serum 192 mg/dL 599-362 7459/02/20 HDL cholesterol, serum 31 mg/dL > OR [...] 11 .0-15.0 platelet count 218 THOUSAND/UL 10*3/mm3 593-557 3752/02/20 mean platelet volume 9.7 fL 7.5-12.5 Lab Report: Comp. Metabolic Panel, Eryth rocyte Sed Rate, UADIP W/MICRO, ... - Chemistry protein, total urine random Negative mg/dL Negative sodium, serum 139 mmol/L 104-139 1715/11/28 carbon dioxide, venous blood 26.0 mmol/L 21.0-32 [...] Negative Encounters Code Encounter Date Provider Facility CPT-14079 Level 4 Est. Patient 08:57:51 INSURANCE CLAIM AUDITOR Checo Conklin MD [facility] CPT-19487 Level 3 Est. Patient 11:24:55 INSURANCE CLAIM AUDITOR Efren almendarez APRN [facility] CPT-28044 Level 3 Est. Patient 13:05:44 CDT Paul Hamlin MD [facility] CPT-76769 Level 3 Est. Patient 11:29:55 CDT Checo Conklin MD [facility] CPT-91017 Level 4 Est. Patient 11:08:12 INSURANCE CLAIM AUDITOR Checo Conklin MD [facility] CPT-31266 Level 4 Est. Patient 16:06:48 INSURANCE CLAIM AUDITOR Checo Conklin MD [facility] CPT-93660 Level 3 Est. Patient 09:11:49 CDT Efren almendarez [facility] CPT-57710 Level 2 Est. Patient 19:53:27 CDT Tanner hill MD [facility] CPT-07213 Level 3 Est. Patient 09:15:34 CDT Efren almendarez [facility] CPT-75703 Level 3 Est. Patient 11:28:51 INSURANCE CLAIM AUDITOR Efren almendarez [facility] CPT-93583 Level 4 Est. Patient 13:55:46 INSURANCE CLAIM AUDITOR Checo Conklin MD [facility] CPT-95614 Level 4 Est. Patient 17:10:53 CDT Checo Conklin MD [facility] CPT-46456 Level 3 Est. Patient 15:56:22 CDT Checo Conklin MD [facility] CPT-34625 Level 3 Est. Patient 15:29:07 CDT Checo Conklin MD [facility] CPT-82139 Level 3 Est. Patient 14:38:41 CDT Checo Conklin MD [facility] CPT-14848 Level 3 Est. Patient 15:22:03 INSURANCE CLAIM AUDITOR Thomas reynolds DO [facility] CPT-46257 Level 3 Est. Patient 13:34:17 INSURANCE CLAIM AUDITOR Checo Conklin MD [facility] CPT-93142 Level 3 Est. Patient 12:29:32 CDT Dangelo arroyo MD [facility] CPT-94821 Level 3 Est. Patient 16:53:02 CDT Checo Conklin MD [facility] CPT-78257 Level 3 Est. Patient 16:37:13 CDT Checo Conklin MD [facility] CPT-79290 Level 3 Est. Patient 16:16:59 CDT Paul Hamlin MD [facility] CPT-73561 Level 3 Est. Patient 14:20:13 CDT Dangelo arroyo MD [facility] CPT-69104 Level 4 Est. Patient 11:29:33 CDT Checo Conklin MD [facility] CPT-31520 Level 3 Est. Patient 17:08:31 CDT Checo Conklin MD [facility] CPT-54974 Level 3 Est. Patient 16:50:42 INSURANCE CLAIM AUDITOR Checo Conklin MD [facility] CPT-90497 Level 4 Est. Patient 09:26:08 INSURANCE CLAIM AUDITOR Checo Conklin MD [facility] CPT-03700 Level 3 Est. Patient 11:37:10 CDT Checo Conklin MD [facility] CPT-14215 Level 4 Est. Patient 14:07:38 CDT Checo Conklin MD [facility] CPT-12442 Level 3 Est. Patient 09:54:41 CDT Checo Conklin MD [facility] CPT-73732 Level 3 Est. Patient 11:10:54 CDT Paul Hamlin MD [facility] CPT-90766 Level 3 Est. Patient 14:16:56 INSURANCE CLAIM AUDITOR Checo Conklin MD [facility] CPT-85835 Level 3 Est. Patient 11:04:11 INSURANCE CLAIM AUDITOR Checo Conklin MD [facility] CPT-81426 Level 3 Est. Patient 17:09:26 CDT Dangelo arroyo MD [facility] CPT-89272 Level 3 Est. Patient 16:54:37 CDT Checo Conklin MD [facility] Procedures Code Procedure Name Date Entry Date Standard Desc ription CPT-18308 Abd compl w upright - XRAY USE ONLY 1 1:36:54 INSURANCE CLAIM AUDITOR CPT-08998 UA w micro - LAB USE ONLY 17:06:46 CDT 2015 CPT-00630 [facility] Qual - LAB USE ONLY 17:06:46 CDT 05/06 CPT-61359 CMP - LAB USE ONLY 17:06:46 CDT CPT-01492 CBC with Diff - LAB USE ONLY 17:06:45 CDT 2 CPT-33621 Venipuncture Draw Fee 17:06:45 CDT CPT-LR Lesion Removal 19:53:27 CDT CPT-OV Office Visit 11:31:28 CDT CPT-14650 Tubersol 09:39:29 CDT CPT-J2550 Phenergan 25 mg (Promethazine) 13:59:02 INSURANCE CLAIM AUDITOR CPT-J1885 Toradol 60 mg (Ketorolac) 13:59:02 INSURANCE CLAIM AUDITOR 2012
--- OUTSIDE RECORDS SUMMARY | 2019-09-29 02:09 | XMS REPORT | Clinical Summary ---
[...] TABLET 1.5 po qd PAR OXETINE HCL 36103810584 Active Checo Conklin MD Active FLUTICASONE PROPIONATE 50 MCG/ACT NASAL SUSPENSION 2 s prays/nostril qd PRN Congestion/Allergies FLUTICASONE PROPIONATE [id number] 9 No Longer Active Checo Conklin MD Active AMOXICILLIN 500 MG ORAL CAPSULE 2 po BID x 10 days 201 01/15/27 AMOXICILLIN 23542648212 No Longer Active Checo Conklin MD Activ e MIRALAX ORAL POWDER 8.5 to 17g po qd PRN Constipation POLYETHYLENE GLYCOL 3350 50069901422 Active Checo Conklin MD Active CLARITIN 10 MG ORAL TABLET 1 tablet by mouth daily as needed for allergies LORATADINE 44850446331 No Longer Active Checo Otriz MD Active BACTRIM DS 800-160 MG ORAL TABLET 1 tab by mouth twice daily 201 12/19/26 TRIMETHOPRIM-SULFAMETHOXAZOLE 71320808906 No Longer Active Ragini Carrillo MD Active DIFLUCAN 150 MG ORAL TABLET 1 tablet by mouth qod 2015 FLUCONAZOLE 50212572611 No Longer Active 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 DEXMETHYLPHENIDATE HCL 11016697817 Active Checo Conklin MD Active MAGNESIUM CITRATE 1.745 GM/30ML ORAL SOLUTION 150ml po BID P RN Constipation MAGNESIUM CITRATE 01439410680 No Longer Active Checo Conklin MD Active BACTROBAN 2 % EXTERNAL CREAM Apply to affected area BID for up to 10 days MUPIROCIN CALCIUM 00340214354 No Longer Active Checo Conklin MD Active HYDROCODONE-ACETAMINOPHEN 5-325 MG ORAL TABLET 1 tab b y mouth every 6 hours as needed HYDROCODONE-ACETAMINOPHEN 37057494866 No Longer Active Checo Conklin MD Active IBUPROFEN 800 MG ORAL TABLET 1 tab every 8 hours with food 03/20 IBUPROFEN 42051328067 No Longer Active Checo Conklin MD Active DIFLUCAN 150 MG ORAL TABLET 1 tablet by mouth if neede d, hold until symptoms start FLUCONAZOLE 09767818778 No Longer Active Checo Conklin MD Active BACTRIM DS 800-160 MG ORAL TABLET 1 tab by mouth twice daily 201 11/23/03 TRIMETHOPRIM-SULFAMETHOXAZOLE 31795441398 No Longer Active K bernice Méndez LPN Active HYDROCODONE-ACETAMINOPHEN 5-325 MG ORAL TABLET 0.5 to 1 tab by mouth every 6 hours as needed HYDROCODONE-ACETAMINOPHEN 55030191921 No Longer Active Checo Conklin MD Active ONDANSETRON 8 MG ORAL TABLET DISINTEGRATING place one tablet on tongue and allow to dissolve every 6 hours as needed for vomitting ONDANSETRON 04816428774 No Longer Active Checo Conklin MD Activ e COMPRO 25 MG RECTAL SUPPOSITORY insert or apply one garza ppository rectally as directed every 12 hours as needed for nausea PROCHLORPERAZINE 84896699709 No Longer Active Checo Conklin MD A ctive SUMATRIPTAN SUCCINATE 100 MG ORAL TABLET Take one PRN for migran e SUMATRIPTAN SUCCINATE 05113244522 No Longer Active Checo Conklin MD Active TRAVEL SICKNESS 25 MG ORAL TABLET CHEWABLE chew and sw allow one tablet every 6 hours as needed MECLIZINE HCL 82230171422 No Longer A ctive Checo Conklin MD Active BUPROPION HCL ER (SR) 100 MG ORAL TABLET EXTENDED RELE ASE 12 HOUR take one tablet by mouth one time daily for one week then take 1 two times daily BUPROPION HCL 19993170729 No Longer Active Checo gallagher MD Active TERBINAFINE HCL 250 MG ORAL TABLET take one table PO one time da moises TERBINAFINE HCL 86834734803 No Longer Active Checo Conklin MD Active METOCLOPRAMIDE HCL 10 MG ORAL TABLET take one PO tid PRN nausea METOCLOPRAMIDE HCL 15908474537 No Longer Active Checo Conklin MD Active DICLOFENAC SODIUM 75 MG ORAL TABLET DELAYED RELEASE 1 tablet by mouth twice daily PRN Knee pain DICLOFENAC SODIUM 16976871383 No Longer Active Checo Conklin MD Active LAMISIL 250 MG ORAL TABLET 1 po qd TERBINAFI NE HCL 13020413038 No Longer Active Checo Conklin MD Active REGLAN 10 MG ORAL TABLET 1 po TID PRN Nausea 3 METOCLOPRAMIDE HCL 35132352272 No Longer Active Checo Conklin MD Active CELEXA 20 MG ORAL TABLET 1 tablet by mouth daily 09/26 CITALOPRAM HYDROBROMIDE 12313697822 No Longer Active Checo Conklin MD Active AZITHROMYCIN 250 MG ORAL TABLET 2 po qd x 1 day, then 1 po q d x 4 days AZITHROMYCIN 60917296238 No Longer Active Checo Ortiz MD Active HYDROCODONE-ACETAMINOPHEN 5-325 MG ORAL TABLET 1 po q 6hr PRN Pa in HYDROCODONE-ACETAMINOPHEN 13163999037 No Longer Active Lenora Conklin MD Active PHENAZOPYRIDINE HCL 200 MG ORAL TABLET take 1 tab po TID for bladder pain PHENAZOPYRIDINE HCL 04911869098 No Longer Active Joe Conklin MD Active CIPRO 500 MG ORAL TABLET 1 tablet by mouth twice daily CIPROFLOXACIN HCL 80453025254 No Longer Active Dangelo Rangel MD Active HYDROCODONE-ACETAMINOPHEN 5-325 MG ORAL TABLET 1/2 to 1 po q 4 hours prn cough HYDROCODONE-ACETAMINOPHEN 53789127763 No Longer Activ e Dangelo Rangel MD Active BACTRIM DS 800-160 MG ORAL TABLET 1 po BID x 7 days 29/04/10 SULFAMETHOXAZOLE-TRIMETHOPRIM 80118698420 No Longer Active Checo Conklin MD Active PREDNISONE 20 MG ORAL TABLET 2 tabs daily for 3 days, 1 tab daily for 3 days, 1/2 tab daily for 2 days PREDNISONE 65765978911 No Longer Active Checo Conklin MD Active TRIAMCINOLONE ACETONIDE 0.1 % EXTERNAL OINTMENT Apply to affected areas TID for up to 2 weeks TRIAMCINOLONE ACETONIDE 92047179207 No Longer Active Checo Conklin MD Active CEFDINIR 300 MG ORAL CAPSULE by mouth twice a day 2013 CEFDINIR 17143023925 No Longer Active Dangelo Rangel MD Acti ve BUPROPION HCL ER (SMOKING DET) 150 MG ORAL TABLET EXTE NDED RELEASE 12 HOUR 1 a day for 1 week then 1 twice a day BUPROPION HCL (SMOKING DETER) 62132778564 No Longer Active Checo Conklin MD Active SIMVASTATIN 20 MG ORAL TABLET 1 po qd SIMVASTAT IN 66200001445 Active Checo Conklin MD Active CHANTIX STARTING MONTH KARTHIK 0.5 MG X 11 & 1 MG X 42 ORA L TABLET 0.5mg daily for 3 days, then 0.5mg BID for 4 days, then 1mg BID VARENICLINE TARTRATE 87806708936 No Longer Active Checo Conklin MD Activ e XANAX 0.5 MG ORAL TABLET 1 po BID PRN anxiety A LPRAZOLAM 46625070004 Active Checo Conklin MD Active CONCERTA 18 MG ORAL TABLET EXTENDED RELEASE 1 po q a.m. METHYLPHENIDATE HCL 17687976426 No Longer Active Checo Conklin MD Active AMBIEN 5 MG ORAL TABLET 1 po qHS PRN Insomnia Z OLPIDEM TARTRATE 86051463244 Active Checo Conklin MD Active TRAZODONE HCL 100 MG ORAL TABLET 0.5 to 1 po qHS PRN Insomnia 20 30/07/08 TRAZODONE HCL 49025408423 No Longer Active Checo Conklin MD Active FIORICET 325-50-40 MG TAB 1 tablet by mouth four times daily as needed [id number] 86605307353 No Longer Active Checo Conklin MD Active PHENERGAN CREAM* 25mg applied to wrist q6hr PRN Nausea PHENERGAN CREAM* No Longer Active Checo Gonzales ctive FLONASE 50 MCG/ACT NASAL SUSPENSION 1 spray each nostril am and hs FLUTICASONE PROPIONATE 67591094258 No Longer Active Checo Conklin MD Active ANTIPYRINE-BENZOCAINE 5.4-1.4 % OTIC SOLUTION 1-2 drops in affec yohannes ear BENZOCAINE-ANTIPYRINE 50684600814 No Longer Active Checo Conklin MD Active CEFDINIR 300 MG ORAL CAPSULE 1 po bid CEFDINIR 32590030282 No Longer Active Checo Conklin MD Active PREDNISONE 20 MG ORAL TABLET 2 tabs daily for 3 days, 1 tab daily for 3 days, 1/2 tab daily for 2 days PREDNISONE 93225269308 No Longer Active Checo Conklin MD Active AZITHROMYCIN 250 MG ORAL TABLET 2 po qd x 1 day, then 1 po q d x 4 days AZITHROMYCIN 79752480150 No Longer Active Checo Ortiz MD Active PREDNISONE 20 MG ORAL TABLET 2 tabs daily for 3 days, 1 tab daily for 3 days, 1/2 tab daily for 2 days PREDNISONE 63234197630 No Longer Active Checo Conklin MD Active ZITHROMAX Z-KARTHIK 250 MG ORAL TABLET 2 today, then 1 daily for 4 d ays AZITHROMYCIN 38442336729 No Longer Active Paul Hamlin MD Active FOCALIN XR 10 MG ORAL CAPSULE EXTENDED RELEASE 24 HOUR 1 po q a. m. DEXMETHYLPHENIDATE HCL 77200181177 No Longer Active Paul Hamlin MD Active PERCOCET 10-325 MG ORAL TABLET 1 tablet every 6 hours as needed for pain OXYCODONE-ACETAMINOPHEN 55393327826 No Longer Active Paul Hamlin MD Active LORTAB 5-500 MG ORAL TABLET 1/2 to 1 tablet by mouth e very 4 hours as needed for pain HYDROCODONE-ACETAMINOPHEN 29331016187 No Longer Active Checo Conklin MD Active FOCALIN XR 15 MG ORAL CAPSULE EXTENDED RELEASE 24 HOUR 1 po q a. m. DEXMETHYLPHENIDATE HCL 12931358684 No Longer Active Checo Conklin MD Active ZOFRAN ODT 4 MG ORAL TABLET DISINTEGRATING 1 po q6hr PRN Nausea ONDANSETRON 24032099784 No Longer Active Checo Conklin MD Active PERCOCET 5-325 MG ORAL TABLET 1 tablet by mouth every 6 hour s as needed OXYCODONE-ACETAMINOPHEN 40646754357 No Longer Active Checo Conklin MD Active PYRIDIUM 200 MG ORAL TABLET take 1 tab po TID prn urinary pain. PHENAZOPYRIDINE HCL 08238457484 No Longer Active Checo Joshua Active FLUCONAZOLE 150 MG ORAL TABLET take 1 tab po qday once FLUCONAZOLE 35508605761 No Longer Active Dangelo Rangel MD Acti ve CIPRO 500 MG ORAL TABLET 1 tablet by mouth twice daily CIPROFLOXACIN HCL 83720990394 No Longer Active Dangelo Rangel MD Active PYRIDIUM 200 MG ORAL TABLET take 1 tab po TID prn urinary pain. PYRIDIUM 200 MG ORAL TABLET 7891102 PHENAZOPYRIDINE HCL Inactive PERCOCET 5-325 MG ORAL TABLET 1 tablet by mouth every 6 hour s as needed PERCOCET 5-325 MG ORAL TABLET 7375930 OXYCODONE-ACETAMINOPHEN Inactive ZOFRAN ODT 4 MG ORAL TABLET DISINTEGRATING 1 po q6hr PRN Nausea ZOFRAN ODT 4 MG ORAL TABLET DISINTEGRATING 331397 ONDAN SETRON Inactive FOCALIN XR 15 MG ORAL CAPSULE EXTENDED RELEASE 24 HOUR 1 po q a. m. FOCALIN XR 15 MG ORAL CAPSULE EXTENDED RELEASE 24 HOUR DEXMETHYLPHENIDATE HCL Inactive LORTAB 5-500 MG ORAL TABLET 1/2 to 1 tablet by mouth e very 4 hours as needed for pain LORTAB 5-500 MG ORAL TABLET 524088 HYDROCODONE-ACETAMINOPHEN Inactive PERCOCET 10-325 MG ORAL TABLET 1 tablet every 6 hours as needed for pain PERCOCET 10-325 MG ORAL TABLET 7828054 OXYCODONE-ACETAMI NOPHEN Inactive FOCALIN XR 10 MG ORAL CAPSULE EXTENDED RELEASE 24 HOUR 1 po q a. m. FOCALIN XR 10 MG ORAL CAPSULE EXTENDED RELEASE 24 HOUR DEXMETHYLPHENIDATE HCL Inactive CEFDINIR 300 MG ORAL CAPSULE 1 po bid CEFDINI R 300 MG ORAL CAPSULE 292439 CEFDINIR Inactive ANTIPYRINE-BENZOCAINE 5.4-1.4 % OTIC SOLUTION 1-2 drops in affec yohannes ear ANTIPYRINE-BENZOCAINE 5.4-1.4 % OTIC SOLUTION 522067 BENZOCAINE-ANTIPYRINE Inactive FLONASE 50 MCG/ACT NASAL SUSPENSION 1 spray each nostril am and hs FLONASE 50 MCG/ACT NASAL SUSPENSION 4834894 FLUTICASONE PROPIONATE I nactive PHENERGAN CREAM* 25mg applied to wrist q6hr PRN Nausea PHENERGAN CREAM* Inactive FIORICET 325-50-40 MG TAB 1 tablet by mouth four times daily as needed FIORICET 325-50-40 MG TAB ACETAMINOPHEN-C AFF-BUTALBITAL Inactive TRAZODONE HCL 100 MG ORAL TABLET 0.5 to 1 po qHS PRN Insomnia 20 30/07/08 TRAZODONE HCL 100 MG ORAL TABLET 792601 TRAZODONE HCL Inactive CONCERTA 18 MG ORAL [...] cough HYDROCODONE-ACETAMINOPHEN 5-325 MG ORAL TABLET 8 45052 HYDROCODONE-ACETAMINOPHEN Inactive PHENAZOPYRIDINE HCL 200 MG ORAL TABLET take 1 tab po TID for bladder pain PHENAZOPYRIDINE HCL 200 MG ORAL TABLET 9131095 PHENAZOPYRIDINE HCL Inactive HYDROCODONE-ACETAMINOPHEN 5-325 MG ORAL TABLET 1 po q 6hr PRN Pa in HYDROCODONE-ACETAMINOPHEN 5-325 MG ORAL TABLET 336541 HYDROCODONE-ACETAMINOPHEN Inactive CELEXA 20 MG ORAL TABLET 1 tablet by mouth daily 09/26 CELEXA 20 MG ORAL TABLET 377552 CITALOPRAM HYDROBROMIDE Inactive REGLAN 10 MG ORAL TABLET 1 po TID PRN Nausea 3 REGLAN 10 MG ORAL TABLET 041868 METOCLOPRAMIDE HCL Inactive LAMISIL 250 MG ORAL TABLET 1 po qd L AMISIL 250 MG ORAL TABLET 519916 TERBINAFINE HCL Inactive DICLOFENAC SODIUM 75 MG ORAL TABLET DELAYED RELEASE 1 tablet by mouth twice daily PRN Knee pain DICLOFENAC SODIUM 75 MG ORAL TABLET DELAYED RELEASE 803065 DICLOFENAC SODIUM Inactive METOCLOPRAMIDE HCL 10 MG ORAL TABLET take one PO tid PRN nausea METOCLOPRAMIDE HCL 10 MG ORAL TABLET 719916 METOCLOPRAM ZACH HCL Inactive TERBINAFINE HCL 250 MG ORAL TABLET take one table PO one time da moises TERBINAFINE HCL 250 MG ORAL TABLET 759952 TERBINAFINE H CL Inactive BUPROPION HCL ER [...] SICKNESS 25 M G ORAL TABLET CHEWABLE 548734 MECLIZINE HCL Inactive SUMATRIPTAN SUCCINATE 100 MG ORAL TABLET Take one PRN for migran e SUMATRIPTAN SUCCINATE 100 MG ORAL TABLET 837574 SUMATRIPTAN SUCCINATE Inactive COMPRO 25 MG RECTAL SUPPOSITORY insert or apply one garza ppository rectally as directed every 12 hours as needed for nausea COMPRO 25 MG RECTAL SUPPOSITORY 925389 PROCHLORPERAZINE Inactive ONDANSETRON 8 MG ORAL TABLET DISINTEGRATING place one tablet on tongue and allow to dissolve every 6 hours as needed for vomitting ONDANSETRON 8 MG ORAL TABLET DISINTEGRATING 278998 ONDANSETRON Inactive HYDROCODONE-ACETAMINOPHEN 5-325 MG ORAL TABLET 0.5 to 1 tab by mouth every 6 hours as needed HYDROCODONE-ACETAMIN OPHEN 5-325 MG ORAL TABLET 906222 HYDROCODONE-ACETAMINOPHEN Inactive BACTRIM DS 800-160 MG ORAL TABLET 1 tab by mouth twice daily 201 11/23/03 BACTRIM DS 800-160 MG ORAL TABLET 355163 TRIMETHOPRIM-SULFAMETHOXAZOLE Inactive DIFLUCAN 150 MG ORAL TABLET 1 tablet by mouth if neede d, hold until symptoms start DIFLUCAN 150 MG ORAL TABLET 451408 FLUCONAZ OLE Inactive IBUPROFEN 800 MG ORAL TABLET 1 tab every 8 hours with food 03/20 IBUPROFEN 800 MG ORAL TABLET 195341 IBUPROFEN Krupa ctive HYDROCODONE-ACETAMINOPHEN 5-325 MG ORAL TABLET 1 tab b y mouth every 6 hours as needed HYDROCODONE-ACETAMINOPHEN 5-325 MG ORAL TABLET 555599 HYDROCODONE-ACETAMINOPHEN Inactive BACTROBAN 2 % EXTERNAL CREAM Apply to affected area BID for up to 10 days BACTROBAN 2 % EXTERNAL CREAM 122319 MUPIROCIN CA LCIUM Inactive MAGNESIUM CITRATE 1.745 GM/30ML ORAL SOLUTION 150ml po BID P RN Constipation MAGNESIUM CITRATE 1.745 GM/30ML ORAL SOLUTION 10 52292 MAGNESIUM CITRATE Inactive DIFLUCAN 150 MG ORAL TABLET 1 tablet by mouth qod 2015 DIFLUCAN 150 MG ORAL TABLET 859934 FLUCONAZOLE Inactive BACTRIM DS 800-160 MG ORAL TABLET 1 tab by mouth twice daily 201 12/19/26 BACTRIM DS 800-160 MG ORAL TABLET 394013 TRIMETHOPRIM-SULFAMETHOXAZOLE Inactive CLARITIN 10 MG ORAL TABLET 1 tablet by mouth daily as needed for allergies CLARITIN 10 MG ORAL TABLET 736709 LORATADINE I nactive FLUTICASONE PROPIONATE 50 MCG/ACT NASAL SUSPENSION 2 s prays/nostril qd PRN Congestion/Allergies FLUTICASONE PROPION ATE 50 MCG/ACT NASAL SUSPENSION 1511331 FLUTICASONE PROPIONATE Inactive CIPRO 500 MG ORAL TABLET 1 tablet by mouth twice daily CIPRO 500 MG ORAL TABLET 281072 CIPROFLOXACIN HCL Inactive FLUCONAZOLE 150 MG ORAL TABLET take 1 tab po qday once FLUCONAZOLE 150 MG ORAL TABLET 604285 FLUCONAZOLE Inactive ZITHROMAX Z-KARTHIK 250 MG ORAL TABLET 2 today, then 1 daily for 4 d ays ZITHROMAX Z-KARTHIK 250 MG ORAL TABLET 686451 AZITHROMYCIN Inactive PREDNISONE 20 MG ORAL TABLET 2 tabs daily for 3 days, 1 tab daily for 3 days, 1/2 tab daily for 2 days PREDNISONE 20 MG ORAL T ABLET 819810 PREDNISONE Inactive AZITHROMYCIN 250 MG ORAL TABLET 2 po qd x 1 day, then 1 po q d x 4 days AZITHROMYCIN 250 MG ORAL TABLET 653481 AZITHROMY SPARKLE Inactive PREDNISONE 20 MG ORAL TABLET 2 tabs daily for 3 days, 1 tab daily for 3 days, 1/2 tab daily for 2 days PREDNISONE 20 MG ORAL TABLET 117989 PREDNISONE Inactive CEFDINIR 300 MG ORAL CAPSULE by mouth twice a day 2013 CEFDINIR 300 MG ORAL CAPSULE 030835 CEFDINIR Inactive TRIAMCINOLONE ACETONIDE 0.1 % EXTERNAL OINTMENT Apply to affected areas TID for up to 2 weeks TRIAMCINOLONE ACETON ZACH 0.1 % EXTERNAL OINTMENT 0976749 TRIAMCINOLONE ACETONIDE Inactive PREDNISONE 20 MG ORAL TABLET 2 tabs daily for 3 days, 1 tab daily for 3 days, 1/2 tab daily for 2 days PREDNISONE 20 MG ORAL T ABLET 043618 PREDNISONE Inactive BACTRIM DS 800-160 MG ORAL TABLET 1 po BID x 7 days 29/04/10 BACTRIM DS 800-160 MG ORAL TABLET 172397 SULFAMETHOXAZOLE-TRIMETHOP RIM Inactive CIPRO 500 MG ORAL TABLET 1 tablet by mouth twice daily CIPRO 500 MG ORAL TABLET 848860 CIPROFLOXACIN HCL Inactive AZITHROMYCIN 250 MG ORAL TABLET 2 po qd x 1 day, then 1 po q d x 4 days AZITHROMYCIN 250 MG ORAL TABLET 786646 AZITHROMY SPARKLE Inactive FLAGYL 500 MG ORAL TABLET 1 tablet by mouth bid 04/13 FLAGYL 500 MG ORAL TABLET 768057 METRONIDAZOLE Inactive AZITHROMYCIN 250 MG ORAL TABLET 2 po qd x 1 day, then 1 po q d x 4 days AZITHROMYCIN 250 MG ORAL TABLET 250466 AZITHROMY SPARKLE Inactive AMOXICILLIN 500 MG ORAL CAPSULE 2 po BID x 10 days 201 01/15/27 AMOXICILLIN 500 MG ORAL CAPSULE 044919 AMOXICILLIN Inactive Immunizations Vaccine Administration Date Value [...] PANEL - Chemistry cholesterol, serum 192 mg/dL 179-003 9644/02/20 HDL cholesterol, serum 31 mg/dL > OR [...] 11 .0-15.0 platelet count 218 THOUSAND/UL 10*3/mm3 320-508 4117/02/20 mean platelet volume 9.7 fL 7.5-12.5 Lab Report: Comp. Metabolic Panel, Eryth rocyte Sed Rate, UADIP W/MICRO, ... - Chemistry protein, total urine random Negative mg/dL Negative sodium, serum 139 mmol/L 504-124 1845/11/28 carbon dioxide, venous blood 26.0 mmol/L 21.0-32 [...] Negative Encounters Code Encounter Date Provider Facility CPT-26686 Level 3 Est. 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 Patient 13:05:44 CDT Paul Hamlin MD [facility] CPT-81427 Level 3 Est. Patient 11:29:55 CDT hCeco Conklin MD [facility] CPT-93045 Level 4 Est. Patient 11:08:12 REFINERY OPERATOR HELPER Checo Conklin MD [facility] CPT-39927 Level 4 Est. Patient 16:06:48 REFINERY OPERATOR HELPER Checo Conklin MD [facility] CPT-12289 Level 3 Est. Patient 09:11:49 CDT Efren almendarez [facility] CPT-30454 Level 2 Est. Patient 19:53:27 CDT Tanner hill MD [facility] CPT-66419 Level 3 Est. Patient 09:15:34 CDT Efren almendarez [facility] CPT-62139 Level 3 Est. 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 Patient 13:55:46 REFINERY OPERATOR HELPER Checo Conklin MD [facility] CPT-24809 Level 4 Est. Patient 17:10:53 CDT Checo Conklin MD [facility] CPT-96577 Level 3 Est. Patient 15:56:22 CDT Checo Conklin MD [facility] CPT-15101 Level 3 Est. Patient 15:29:07 CDT Checo Conklin MD [facility] CPT-39522 Level 3 Est. Patient 14:38:41 CDT Checo Conklin MD [facility] CPT-39528 Level 3 Est. Patient 15:22:03 REFINERY OPERATOR HELPER Thomas reynolds DO [facility] CPT-75388 Level 3 Est. Patient 13:34:17 REFINERY OPERATOR HELPER Checo Conklin MD [facility] CPT-48618 Level 3 Est. Patient 12:29:32 CDT Dangelo arroyo MD [facility] CPT-73438 Level 3 Est. Patient 16:53:02 CDT Checo Conklin MD [facility] CPT-29815 Level 3 Est. Patient 16:37:13 CDT Checo Conklin MD [facility] CPT-18523 Level 3 Est. Patient 16:16:59 CDT Paul Hamlin MD [facility] CPT-56704 Level 3 Est. Patient 14:20:13 CDT Dangelo arroyo MD [facility] CPT-02587 Level 4 Est. Patient 11:29:33 CDT Checo Conklin MD [facility] CPT-19037 Level 3 Est. Patient 17:08:31 CDT Checo Conklin MD [facility] CPT-24460 Level 3 Est. Patient 16:50:42 REFINERY OPERATOR HELPER Checo Conklin MD [facility] CPT-38656 Level 4 Est. Patient 09:26:08 REFINERY OPERATOR HELPER Checo Conklin MD [facility] CPT-07023 Level 3 Est. Patient 11:37:10 CDT Checo Conklin MD [facility] CPT-98598 Level 4 Est. Patient 14:07:38 CDT Checo Conklin MD [facility] CPT-70536 Level 3 Est. Patient 09:54:41 CDT Checo Conklin MD [facility] CPT-18715 Level 3 Est. Patient 11:10:54 CDT Paul Hamlin MD [facility] CPT-45552 Level 3 Est. Patient 14:16:56 REFINERY OPERATOR HELPER Checo Conklin MD [facility] CPT-91369 Level 3 Est. Patient 11:04:11 REFINERY OPERATOR HELPER Checo Conklin MD [facility] CPT-53433 Level 3 Est. Patient 17:09:26 CDT Dangelo arroyo MD [facility] CPT-80526 Level 3 Est. Patient 16:54:37 CDT Checo Conklin MD [facility] Procedures Code Procedure Name Date Entry Date Standard Desc ription CPT-54293 Abd compl w upright - XRAY USE ONLY 1 1:36:54 REFINERY OPERATOR HELPER CPT-55692 UA w micro - LAB USE ONLY 17:06:46 CDT 2015 CPT-45931 BHCG Qual - LAB USE ONLY 17:06:46 CDT 05/06 CPT-46421 CMP - LAB USE ONLY 17:06:46 CDT CPT-57746 CBC with Diff - LAB USE ONLY 17:06:45 CDT 2 CPT-98218 Venipuncture Draw Fee 17:06:45 CDT CPT-LR Lesion Removal 19:53:27 CDT CPT-OV Office Visit 11:31:28 CDT CPT-68856 Tubersol 09:39:29 CDT CPT-J2550 Phenergan 25 mg (Promethazine) 13:59:02 REFINERY OPERATOR HELPER CPT-J1885 Toradol 60 mg (Ketorolac) 13:59:02 REFINERY OPERATOR HELPER 2012
--- OUTSIDE RECORDS SUMMARY | 2019-09-29 02:10 | XMS REPORT | Clinical Summary ---
Author Author Admin, Bethany Gonzales Organization [employer] Address Unknown Phone Unavailable Allergies, Adverse Reactions, [...] TABS 1.5 po qd PAROX ETINE HCL 95426566587 Active Checo Conklin MD Active FLUTICASONE PROPIONATE 50 MCG/ACT NASAL SUSP 2 sprays/ nostril qd PRN Congestion/Allergies FLUTICASONE PROPIONATE 2692001761 5 No Longer Active Checo Conklin MD Active AMOXICILLIN 500 MG ORAL CAPS 2 po BID x 10 days 09/12 AMOXICILLIN 11503972019 No Longer Active Checo Conklin MD Activ e MIRALAX ORAL POWD 8.5 to 17g po qd PRN Constipation POLYETHYLENE GLYCOL 3350 59719798346 Active Checo Conklin MD Active CLARITIN 10 MG TAB 1 tablet by mouth daily as needed for allergi es LORATADINE 15405203706 No Longer Active Checo Conklin MD Active BACTRIM DS 800-160 MG TAB 1 tab by mouth twice daily 2 TRIMETHOPRIM-SULFAMETHOXAZOLE 87973290435 No Longer Active Tanner Carrillo MD Active DIFLUCAN 150 MG TAB 1 tablet by mouth qod FLUCO NAZOLE 92731860223 No Longer Active Efren Medel APRN Active AZITHROMYCIN 250 MG TABS 2 po qd x 1 day, then 1 po qd x 4 days AZITHROMYCIN 37086534223 No Longer Active Efren Medel [employer]ER [employer] 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 DEX METHYLPHENIDATE HCL 08400813890 Active Checo Conklin MD Active MAGNESIUM CITRATE 1.745 GM/30ML ORAL SOLN 150ml po BID PRN C onstipation MAGNESIUM CITRATE 29506274095 No Longer Active Checo Conklin MD Active BACTROBAN 2 % CREAM Apply to affected area BID for up to 10 days MUPIROCIN CALCIUM 93235373874 No Longer Active Checo Conklin MD Active HYDROCODONE-ACETAMINOPHEN 5-325 MG TABS 1 tab by mouth every 6 hours as needed HYDROCODONE-ACETAMINOPHEN 16368220043 No Longer Activ e Checo Conklin MD Active IBUPROFEN 800 MG TABS 1 tab every 8 hours with food 20 31/03/21 IBUPROFEN 78609657084 No Longer Active Checo Conklin MD Activ e DIFLUCAN 150 MG TAB 1 tablet by mouth if needed, hold until symptoms start FLUCONAZOLE 72746805674 No Longer Active Checo Ortiz MD Active BACTRIM DS 800-160 MG TAB 1 tab by mouth twice daily 2 TRIMETHOPRIM-SULFAMETHOXAZOLE 58709896206 No Longer Active Corry leong LPN Active HYDROCODONE-ACETAMINOPHEN 5-325 MG TABS 0.5 to 1 tab b y mouth every 6 hours as needed HYDROCODONE-ACETAMINOPHEN 10112014841 No Longer Active Checo Conklin MD Active ONDANSETRON [address] one tablet on tongue and allow to dissolve every 6 hours as needed for vomitting ONDANSETRO N 88735857394 No Longer Active Checo Conklin MD Active COMPRO 25 MG RECTAL SUPP insert or apply one supposit ory rectally as directed every 12 hours as needed for nausea PROCHLORPERA ZINE 55855690844 No Longer Active Checo Conklin MD Active SUMATRIPTAN SUCCINATE 100 MG ORAL TABS Take one PRN for migrane SUMATRIPTAN SUCCINATE 47522988063 No Longer Active Checo Conklin MD Active TRAVEL SICKNESS 25 MG ORAL CHEW chew and swallow one t ablet every 6 hours as needed MECLIZINE HCL 22954814913 No Longer Active Joe Conklin MD Active BUPROPION HCL ER (SR) 100 MG ORAL [id number] take one t ablet by mouth one time daily for one week then take 1 two times daily BUPROPION HCL 45591351704 No Longer Active Checo Conklin MD Activ e TERBINAFINE HCL 250 MG ORAL TABS take one table PO one time abran y TERBINAFINE HCL 26354999938 No Longer Active Checo Conklin MD Active METOCLOPRAMIDE HCL 10 MG ORAL TABS take one PO tid PRN nausea 20 29/12/14 METOCLOPRAMIDE HCL 44425747034 No Longer Active Checo Conklin MD Active DICLOFENAC SODIUM 75 MG TBEC 1 tablet by mouth twice daily P RN Knee pain DICLOFENAC SODIUM 14356532103 No Longer Active Checo Conklin MD Active LAMISIL 250 MG TAB 1 po qd TERBINAFINE HCL 548 72643980 No Longer Active Checo Conklin MD Active REGLAN 10 MG TAB 1 po TID PRN Nausea METOCLOPRA MIDE HCL 82947757845 No Longer Active Checo Conklin MD Active CELEXA 20 MG TABS 1 tablet by mouth daily CITALOPRAM HYDROBROMIDE 57162908756 No Longer Active Checo Conklin MD Activ e AZITHROMYCIN 250 MG TABS 2 po qd x 1 day, then 1 po qd x 4 days AZITHROMYCIN 11621996895 No Longer Active Checo Conklin MD Active HYDROCODONE-ACETAMINOPHEN 5-325 MG TABS 1 po q 6hr PRN Pain 2013 HYDROCODONE-ACETAMINOPHEN 27743900428 No Longer Active Lenora Conklin MD Active PHENAZOPYRIDINE HCL 200 MG TABS take 1 tab po TID for bladder pa in PHENAZOPYRIDINE HCL 66618635573 No Longer Active Checo Joshua Active CIPRO 500 MG TAB 1 tablet by mouth twice daily CIPROFLOXACIN HCL 41147597466 No Longer Active Dangelo Rangel MD Active HYDROCODONE-ACETAMINOPHEN 5-325 MG TABS 1/2 to 1 po q 4 hour s prn cough HYDROCODONE-ACETAMINOPHEN 37576776182 No Longer Activ e Dangelo Rangel MD Active BACTRIM DS 800-160 MG TABS 1 po BID x 7 days 0 SULFAMETHOXAZOLE-TRIMETHOPRIM 55000492970 No Longer Active Checo Conklin MD Active PREDNISONE 20 MG TAB 2 tabs daily for 3 days, 1 t ab daily for 3 days, 1/2 tab daily for 2 days PREDNISONE 75249031187 No Longer Active Checo Conklin MD Active TRIAMCINOLONE ACETONIDE 0.1 % OINT Apply to affected a reas TID for up to 2 weeks TRIAMCINOLONE ACETONIDE 43159386287 No Longer A ctive Checo Conklin MD Active CEFDINIR 300 MG CAPS by mouth twice a day CEFDI JAZZY 69370493441 No Longer Active Dangelo Rangel MD Active BUPROPION HCL (SMOKING DETER) 150 MG [id number] 1 a day for 1 week then 1 twice a day BUPROPION HCL (SMOKING DETER) 03650735174 No Lo nger Active Checo Conklin MD Active SIMVASTATIN 20 MG TABS 1 po qd SIMVASTATIN 4511657047 5 Active Checo Conklin MD Active CHANTIX STARTING MONTH KARTHIK 0.5 MG X 11 & 1 MG X 42 TAB S 0.5mg daily for 3 days, then 0.5mg BID for 4 days, then 1mg BID VARENICLINE TARTRATE 29727243426 No Longer Active Checo Conklin MD Activ e XANAX 0.5 MG TABS 1 po BID PRN anxiety ALPRAZOLAM 10020921469 Active Checo Conklin MD Active CONCERTA 18 MG CR-TABS 1 po q a.m. METHYLPHENID ATE HCL 28607806629 No Longer Active Checo Conklin MD Active AMBIEN 5 MG TAB 1 po qHS PRN Insomnia ZOLPIDEM TARTRATE 15645073385 Active Checo Conklin MD Active TRAZODONE HCL 100 MG TAB 0.5 to 1 po qHS PRN Insomnia TRAZODONE HCL 81257752872 No Longer Active Checo Conklin MD Acti ve FIORICET 325-50-40 MG TAB 1 tablet by mouth four times daily as needed [id number] 84506213598 No Longer Active Checo Conklin MD Active PHENERGAN CREAM* 25mg applied to wrist q6hr PRN Nausea PHENERGAN CREAM* No Longer Active Checo Conklin MD A ctive FLONASE 50 MCG/ACT SUSP 1 spray each nostril am and hs FLUTICASONE PROPIONATE 37649828378 No Longer Active Checo Conklin MD Activ e ANTIPYRINE-BENZOCAINE 5.4-1.4 % SOLN 1-2 drops in affected ear BENZOCAINE-ANTIPYRINE 02032859682 No Longer Active Checo Conklin MD Active CEFDINIR 300 MG CAPS 1 po bid CEFDINIR 21356111 120 No Longer Active Checo Conklin MD Active PREDNISONE 20 MG TAB 2 tabs daily for 3 days, 1 t ab daily for 3 days, 1/2 tab daily for 2 days PREDNISONE 39505208322 No Longer Active Aracelis Conklin MD Active AZITHROMYCIN 250 MG TABS 2 po qd x 1 day, then 1 po qd x 4 days AZITHROMYCIN 43408347927 No Longer Active Checo Conklin MD Active PREDNISONE 20 MG TAB 2 tabs daily for 3 days, 1 t ab daily for 3 days, 1/2 tab daily for 2 days PREDNISONE 14422581412 No Longer Active Checo Conklin MD Active ZITHROMAX Z-KARTHIK 250 MG TABS 2 today, then 1 daily for 4 days 201 09/18/28 AZITHROMYCIN 38133337583 No Longer Active Paul Hamlin MD Active FOCALIN XR 10 MG [id number] 1 po q a.m. D EXMETHYLPHENIDATE HCL 55757008886 No Longer Active Paul Hamlin MD Activ e PERCOCET 10-325 MG TABS 1 tablet every 6 hours as needed for pain OXYCODONE-ACETAMINOPHEN 06169265833 No Longer Active Paul Hamlin MD Active LORTAB 5 5-500 MG TABS 1/2 to 1 tablet by mouth flaquito ry 4 hours as needed for pain HYDROCODONE-ACETAMINOPHEN 73539959342 No Longer Active Checo Conklin MD Active FOCALIN XR 15 MG [id number] 1 po q a.m. D EXMETHYLPHENIDATE HCL 00426374388 No Longer Active Checo Conklin MD Activ e ZOFRAN ODT 4 MG TBDP 1 po q6hr PRN Nausea ONDAN SETRON 03963644154 No Longer Active Checo Conklin MD Active PERCOCET 5-325 MG TABS 1 tablet by mouth every 6 hours as needed OXYCODONE-ACETAMINOPHEN 34235573735 No Longer Active Checo Conklin MD Active PYRIDIUM 200 MG TABS take 1 tab po TID prn urinary pain. 0 PHENAZOPYRIDINE HCL 39898995362 No Longer Active Checo Conklin MD Active FLUCONAZOLE 150 MG TABS take 1 tab po qday once 0 04/06 FLUCONAZOLE 60917736613 No Longer Active Dangelo Rangel MD Acti ve CIPRO 500 MG TAB 1 tablet by mouth twice daily CIPROFLOXACIN HCL 63968302238 No Longer Active Dangelo Rangel MD Active PYRIDIUM 200 MG TABS take 1 tab po TID prn urinary pain. 0 PYRIDIUM 200 MG TABS 9478724 PHENAZOPYRIDINE HCL Inactive PERCOCET 5-325 MG TABS 1 tablet by mouth every 6 hours as needed PERCOCET 5-325 MG TABS 4154823 OXYCODONE-ACETAMINOPHEN I nactive ZOFRAN ODT 4 MG TBDP 1 po q6hr PRN Nausea ZOFRAN ODT 4 MG TBDP 966667 ONDANSETRON Inactive FOCALIN XR 15 MG [id number] 1 po q a.m. F OCALIN XR 15 MG [id number] DEXMETHYLPHENIDATE HCL Inactive LORTAB 5 5-500 MG TABS 1/2 to 1 tablet by mouth flaquito ry 4 hours as needed for pain LORTAB 5 5-500 MG TABS HYDROCODONE-A CETAMINOPHEN Inactive PERCOCET 10-325 MG TABS 1 tablet every 6 hours as needed for pain PERCOCET 10-325 MG TABS 7768179 OXYCODONE-ACETAMINOPHEN Inactive FOCALIN XR 10 MG [id number] 1 po q a.m. F OCALIN XR 10 MG [id number] DEXMETHYLPHENIDATE HCL Inactive CEFDINIR 300 MG CAPS 1 po bid CEFDINIR 300 MG CAPS 20 0346 CEFDINIR Inactive ANTIPYRINE-BENZOCAINE 5.4-1.4 % SOLN 1-2 drops in affected ear ANTIPYRINE-BENZOCAINE 5.4-1.4 % SOLN BENZOCAINE-ANTIPYRINE I nactive FLONASE 50 MCG/ACT SUSP 1 spray each nostril am and hs FLONASE 50 MCG/ACT SUSP 3877502 FLUTICASONE PROPIONATE Inactive PHENERGAN CREAM* 25mg applied to wrist q6hr PRN Nausea PHENERGAN CREAM* Inactive FIORICET 325-50-40 MG TAB 1 tablet by mouth four times daily as needed FIORICET 325-50-40 MG TAB ACETAMINOPHEN-C AFF-BUTALBITAL Inactive TRAZODONE HCL 100 MG TAB 0.5 to 1 po qHS PRN Insomnia TRAZODONE HCL 100 MG TAB 304166 TRAZODONE HCL Inactive CONCERTA 18 MG CR-TABS [...] s prn cough HYDROCODONE-ACETAMINOPHEN 5-325 MG TABS 507725 HYDROCODONE-ACETAMINOPHEN Inactive PHENAZOPYRIDINE HCL 200 MG TABS take 1 tab po TID for bladder pa in PHENAZOPYRIDINE HCL 200 MG TABS 3657252 PHENAZOPYRIDINE HCL Inactive HYDROCODONE-ACETAMINOPHEN 5-325 MG TABS 1 po q 6hr PRN Pain 2013 HYDROCODONE-ACETAMINOPHEN 5-325 MG TABS 228680 HYDROCODONE-ACETAMINOPHEN Inactive CELEXA 20 MG TABS 1 tablet by mouth daily CELEXA 20 MG TABS 193990 CITALOPRAM HYDROBROMIDE Inactive REGLAN 10 MG TAB 1 po TID PRN Nausea REGLAN 10 MG TAB 110219 METOCLOPRAMIDE HCL Inactive LAMISIL 250 MG TAB 1 po qd LAMISIL 250 MG TAB 795640 TERBINAFINE HCL Inactive DICLOFENAC SODIUM 75 MG TBEC 1 tablet by mouth twice daily P RN Knee pain DICLOFENAC SODIUM 75 MG TBEC 017828 DICLOFENAC S ODIUM Inactive METOCLOPRAMIDE HCL 10 MG ORAL TABS take one PO tid PRN nausea 20 29/12/14 METOCLOPRAMIDE HCL 10 MG ORAL TABS 918538 METOCLOPRAMID E HCL Inactive TERBINAFINE HCL 250 MG ORAL TABS take one table PO one time abran y TERBINAFINE HCL 250 MG ORAL TABS 877715 TERBINAFINE HCL Inactive BUPROPION HCL ER (SR) 100 MG ORAL [id number] take one t ablet by mouth one time daily for one week then take 1 two times daily BUPROPION HCL ER (SR) 100 MG ORAL [id number] BUPROPION HCL Inacti ve TRAVEL SICKNESS 25 MG ORAL CHEW chew and swallow one t ablet every 6 hours as needed TRAVEL SICKNESS 25 MG ORAL CHEW 413760 MECLIZINE HCL Inactive SUMATRIPTAN SUCCINATE 100 MG ORAL TABS Take one PRN for migrane SUMATRIPTAN SUCCINATE 100 MG ORAL TABS 515225 SUMATRIPT AN SUCCINATE Inactive COMPRO 25 MG RECTAL SUPP insert or apply one supposit ory rectally as directed every 12 hours as needed for nausea COMP RO 25 MG RECTAL SUPP 268638 PROCHLORPERAZINE Inactive ONDANSETRON [address] one tablet on tongue and allow to dissolve every 6 hours as needed for vomitting ON DANSETRON 8 MG ORAL TBDP 294748 ONDANSETRON Inactive HYDROCODONE-ACETAMINOPHEN 5-325 MG TABS 0.5 to 1 tab b y mouth every 6 hours as needed HYDROCODONE-ACETAMINOPHEN 5-325 MG TABS 8 55287 HYDROCODONE-ACETAMINOPHEN Inactive BACTRIM DS 800-160 MG TAB 1 tab by mouth twice daily 2 BACTRIM DS 800-160 MG TAB 19820918 TRIMETHOPRIM-SULFAMETHOXAZOLE Inac tive DIFLUCAN 150 MG TAB 1 tablet by mouth if needed, hold until symptoms start DIFLUCAN 150 MG TAB 19760325 FLUCONAZOLE Inactive IBUPROFEN 800 MG TABS 1 tab every 8 hours with food 31/03/21 IBUPROFEN 800 MG TABS 342207 IBUPROFEN Inactive HYDROCODONE-ACETAMINOPHEN 5-325 MG TABS 1 tab by mouth every 6 hours as needed HYDROCODONE-ACETAMINOPHEN 5-325 MG TABS 145188 HYDROCODONE-ACETAMINOPHEN Inactive BACTROBAN 2 % CREAM Apply to affected area BID for up to 10 days BACTROBAN 2 % CREAM 105665 MUPIROCIN CALCIUM Inactive MAGNESIUM CITRATE 1.745 GM/30ML ORAL SOLN 150ml po BID PRN C onstipation MAGNESIUM CITRATE 1.745 GM/30ML ORAL SOLN 978889 0 MAGNESIUM CITRATE Inactive DIFLUCAN 150 MG TAB 1 tablet by mouth qod DIFLUCAN 150 MG TAB 322275 FLUCONAZOLE Inactive BACTRIM DS 800-160 MG TAB 1 tab by mouth twice daily 2 BACTRIM DS 800-160 MG TAB 19820918 TRIMETHOPRIM-SULFAMETHOXAZOLE Inac tive CLARITIN 10 MG TAB 1 tablet by mouth daily as needed for allergi es CLARITIN 10 MG TAB 987329 LORATADINE Inactive FLUTICASONE PROPIONATE 50 MCG/ACT NASAL SUSP 2 sprays/ nostril qd PRN Congestion/Allergies FLUTICASONE PROPION ATE 50 MCG/ACT NASAL SUSP 4721095 FLUTICASONE PROPIONATE Inactive CIPRO 500 MG TAB 1 tablet by mouth twice daily CIPRO 500 MG TAB 256450 CIPROFLOXACIN HCL Inactive FLUCONAZOLE 150 MG TABS take 1 tab po qday once 04/06 FLUCONAZOLE 150 MG TABS 699441 FLUCONAZOLE Inactive ZITHROMAX Z-KARTHIK 250 MG TABS 2 today, then 1 daily for 4 days 201 09/18/28 ZITHROMAX Z-KARTHIK 250 MG TABS 5835704 AZITHROMYCIN Inac tive PREDNISONE 20 MG TAB 2 tabs daily for 3 days, 1 t ab daily for 3 days, 1/2 tab daily for 2 days PREDNISONE 20 MG TAB 496955 PREDNISON E Inactive AZITHROMYCIN 250 MG TABS 2 po qd x 1 day, then 1 po qd x 4 days AZITHROMYCIN 250 MG TABS 3540271 AZITHROMYCIN Inactiv e PREDNISONE 20 MG TAB 2 tabs daily for 3 days, 1 t ab daily for 3 days, 1/2 tab daily for 2 days PREDNISONE 20 MG TAB 404239 PREDNISON E Inactive CEFDINIR 300 MG CAPS by mouth twice a day CEFDINIR 300 MG CAPS 581568 CEFDINIR Inactive TRIAMCINOLONE ACETONIDE 0.1 % OINT Apply to affected a reas TID for up to 2 weeks TRIAMCINOLONE ACETONIDE 0.1 % OINT 133660 6 TRIAMCINOLONE ACETONIDE Inactive PREDNISONE 20 MG TAB 2 tabs daily for 3 days, 1 t ab daily for 3 days, 1/2 tab daily for 2 days PREDNISONE 20 MG TAB 310501 PREDNISON E Inactive BACTRIM DS 800-160 MG TABS 1 po BID x 7 days 0 BACTRIM DS 800-160 MG TABS 678586 SULFAMETHOXAZOLE-TRIMETHOPRIM Inactive CIPRO 500 MG TAB 1 tablet by mouth twice daily CIPRO 500 MG TAB 549590 CIPROFLOXACIN HCL Inactive AZITHROMYCIN 250 MG TABS 2 po qd x 1 day, then 1 po qd x 4 days AZITHROMYCIN 250 MG TABS 3667497 AZITHROMYCIN Inactiv e FLAGYL 500 MG TAB 1 tablet by mouth bid FLAGYL 500 MG TAB 034425 METRONIDAZOLE Inactive AZITHROMYCIN 250 MG TABS 2 po qd x 1 day, then 1 po qd x 4 days AZITHROMYCIN 250 MG TABS 6681670 AZITHROMYCIN Inactiv e AMOXICILLIN 500 MG ORAL CAPS 2 po BID x 10 days 09/12 AMOXICILLIN 500 MG ORAL CAPS 460460 AMOXICILLIN Inactive Immunizations Vaccine Administration Date Value [...] Report: CBC W/DIFF, Comp. Metabolic Panel, Qual [facility] [place] Chemistry sodium, serum 139 mmol/L 170-337 7330/10/21 carbon dioxide, venous blood 33.5 mmol/L 21.0-32 [...] Report: CBC W/DIFF, Comp. Metabolic Panel, Qual [facility] [place] Hematology leukocyte count, blood 7.9 10^3/MM^3 [...] PANEL - Chemistry cholesterol, serum 192 mg/dL 975-028 7847/02/20 HDL cholesterol, serum 31 mg/dL > OR [...] 11 .0-15.0 platelet count 218 THOUSAND/UL 10*3/mm3 644-528 8717/02/20 mean platelet volume 9.7 fL 7.5-12.5 Lab Report: Chlamydia/GC APTIMA/25624 - Lab chlamydia DNA probe NOT DETECTED NOT DETECTED Lab Report: Chlamydia/GC APTIMA/89366 - Microbiology Neisseria gonorrhoeae DNA probe NOT [...] ative Encounters Code Encounter Date Provider Facility CPT-45164 Level 3 Est. Patient 13:05:44 CDT Paul Hamlin MD [facility] CPT-55556 Level 3 Est. Patient 11:29:55 CDT Checo Conklin MD [facility] CPT-23022 Level 4 Est. Patient 11:08:12 FIRE EQUIPMENT OPERATOR Checo Conklin MD [facility] CPT-29526 Level 4 Est. Patient 16:06:48 FIRE EQUIPMENT OPERATOR Checo Conklin MD [facility] CPT-89136 Level 3 Est. Patient 09:11:49 CDT Efren almendarez [facility] CPT-02466 Level 2 Est. Patient 19:53:27 CDT Tanner hill MD [facility] CPT-13524 Level 3 Est. Patient 09:15:34 CDT Efren almendarez [facility] CPT-04274 Level 3 Est. Patient 11:28:51 FIRE EQUIPMENT OPERATOR Efren almendarez [facility] CPT-23156 Level 4 Est. Patient 13:55:46 FIRE EQUIPMENT OPERATOR Checo Conklin MD [facility] CPT-07910 Level 4 Est. Patient 17:10:53 CDT Checo Conklin MD [facility] CPT-16239 Level 3 Est. Patient 15:56:22 CDT Checo Conklin MD [facility] CPT-31574 Level 3 Est. Patient 15:29:07 CDT Checo Conklin MD [facility] CPT-56436 Level 3 Est. Patient 14:38:41 CDT Checo Conklin MD [facility] CPT-46025 Level 3 Est. Patient 15:22:03 FIRE EQUIPMENT OPERATOR Thomas reynolds DO [facility] CPT-07485 Level 3 Est. Patient 13:34:17 FIRE EQUIPMENT OPERATOR Checo Conklin MD [facility] CPT-54515 Level 3 Est. Patient 12:29:32 CDT Dangelo arroyo MD [facility] CPT-81683 Level 3 Est. Patient 16:53:02 CDT Checo Conklin MD [facility] CPT-12907 Level 3 Est. Patient 16:37:13 CDT Checo Conklin MD [facility] CPT-42402 Level 3 Est. Patient 16:16:59 CDT Paul Hamlin MD [facility] CPT-86867 Level 3 Est. Patient 14:20:13 CDT Dangelo arroyo MD [facility] CPT-60838 Level 4 Est. Patient 11:29:33 CDT Checo Conklin MD [facility] CPT-83629 Level 3 Est. Patient 17:08:31 CDT Checo Conklin MD [facility] CPT-15995 Level 3 Est. Patient 16:50:42 FIRE EQUIPMENT OPERATOR Checo Conklin MD [facility] CPT-75204 Level 4 Est. Patient 09:26:08 FIRE EQUIPMENT OPERATOR Checo Conklin MD [facility] CPT-50527 Level 3 Est. Patient 11:37:10 CDT Checo Conklin MD [facility] CPT-67321 Level 4 Est. Patient 14:07:38 CDT Checo Conklin MD [facility] CPT-76622 Level 3 Est. Patient 09:54:41 CDT Checo Conklin MD [facility] CPT-82387 Level 3 Est. Patient 11:10:54 CDT Paul Hamlin MD [facility] CPT-42156 Level 3 Est. Patient 14:16:56 FIRE EQUIPMENT OPERATOR Checo Conklin MD [facility] CPT-42484 Level 3 Est. Patient 11:04:11 FIRE EQUIPMENT OPERATOR Checo Conklin MD [facility] CPT-53605 Level 3 Est. Patient 17:09:26 CDT Dangelo arroyo MD [facility] CPT-30128 Level 3 Est. Patient 16:54:37 CDT Checo Conklin MD [facility] Procedures Code Procedure Name Date Entry Date Standard Desc ription CPT-74296 UA w micro - LAB USE ONLY 17:06:46 CDT 2015 CPT-69313 BHCG Qual - LAB USE ONLY 17:06:46 CDT 05/06 CPT-32858 CMP - LAB USE ONLY 17:06:46 CDT CPT-34862 CBC with Diff - LAB USE ONLY 17:06:45 CDT 2 CPT-66744 Venipuncture Draw Fee 17:06:45 CDT CPT-LR Lesion Removal 19:53:27 CDT CPT-OV Office Visit 11:31:28 CDT CPT-57340 Tubersol 09:39:29 CDT CPT-J2550 Phenergan 25 mg (Promethazine) 13:59:02 FIRE EQUIPMENT OPERATOR CPT-J1885 Toradol 60 mg (Ketorolac) 13:59:02 FIRE EQUIPMENT OPERATOR 2012
--- OUTSIDE RECORDS SUMMARY | 2019-09-29 02:10 | XMS REPORT | Clinical Summary ---
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 [...] tab by mouth twice daily 2 TRIMETHOPRIM-SULFAMETHOXAZOLE [id number] No Longer Active Tanner Carrillo MD Active DIFLUCAN 150 MG TAB 1 tablet by mouth qod FLUCO NAZOLE 64328098607 No Longer Active Efren Medel APRN Active CLARITIN 10 MG TAB 1 tablet by mouth daily as needed for allergies LORATADINE 45007692503 Active Efren Medel PS[employer]CHIATRIC SOCIAL WORKER Active AZITHROMYCIN 250 MG TABS 2 po qd x 1 day, then 1 po qd x 4 days AZITHROMYCIN 88166980719 No Longer Active Jillina Lizy RIDDLEN Active FLAGYL 500 MG TAB 1 tablet by mouth bid METRONI DAZOLE 12330400309 No Longer Active Checo Conklin MD Active FOCALIN XR 10 MG ORAL [id number] 1 po q a.m. DEX METHYLPHENIDATE HCL 31928653219 Active Checo Conklin MD Active MAGNESIUM CITRATE 1.745 GM/30ML ORAL SOLN 150ml po BID PRN C onstipation MAGNESIUM CITRATE 66460795121 No Longer Active Checo Conklin MD Active BACTROBAN 2 % CREAM Apply to affected area BID for up to 10 days MUPIROCIN CALCIUM 49547034773 No Longer Active Checo Conklin MD Active HYDROCODONE-ACETAMINOPHEN 5-325 MG TABS 1 tab by mouth every 6 hours as needed HYDROCODONE-ACETAMINOPHEN 21553818817 No Longer Activ e Checo Conklin MD Active IBUPROFEN 800 MG TABS 1 tab every 8 hours with food 20 31/03/21 IBUPROFEN 63771412715 No Longer Active Checo Conklin MD Activ e DIFLUCAN 150 MG TAB 1 tablet by mouth if needed, hold until symptoms start FLUCONAZOLE 94817495753 No Longer Active Checo Ortiz MD Active BACTRIM DS 800-160 MG TAB 1 tab by mouth twice daily 2 TRIMETHOPRIM-SULFAMETHOXAZOLE 42559061352 No Longer Active Corry leong LPN Active MIRALAX PACK 1 po qd PRN Constipation POLYETHYL JOEL GLYCOL 3350 69039018103 Active Checo Conklin MD Active HYDROCODONE-ACETAMINOPHEN 5-325 MG TABS 0.5 to 1 tab b y mouth every 6 hours as needed HYDROCODONE-ACETAMINOPHEN 72877689349 No Longer Active Checo Conklin MD Active ONDANSETRON [address] one tablet on tongue and allow to dissolve every 6 hours as needed for vomitting ONDANSETRO N 54510562844 No Longer Active Checo Conklin MD Active COMPRO 25 MG RECTAL SUPP insert or apply one supposit ory rectally as directed every 12 hours as needed for nausea PROCHLORPERA ZINE 44830205372 No Longer Active Checo Conklin MD Active SUMATRIPTAN SUCCINATE 100 MG ORAL TABS Take one PRN for migrane SUMATRIPTAN SUCCINATE 44462062315 No Longer Active Checo Conklin MD Active TRAVEL SICKNESS 25 MG ORAL CHEW chew and swallow one t ablet every 6 hours as needed MECLIZINE HCL 15918339525 No Longer Active Joe Conklin MD Active BUPROPION HCL ER (SR) 100 MG ORAL [id number] take one t ablet by mouth one time daily for one week then take 1 two times daily BUPROPION HCL 00227489314 No Longer Active Checo Conklin MD Activ e TERBINAFINE HCL 250 MG ORAL TABS take one table PO one time abran y TERBINAFINE HCL 56134654151 No Longer Active Checo Conklin MD Active METOCLOPRAMIDE HCL 10 MG ORAL TABS take one PO tid PRN nausea 20 29/12/14 METOCLOPRAMIDE HCL 79202619991 No Longer Active Checo Conklin MD Active DICLOFENAC SODIUM 75 MG TBEC 1 tablet by mouth twice daily P RN Knee pain DICLOFENAC SODIUM 46820249071 No Longer Active Checo Conklin MD Active LAMISIL 250 MG TAB 1 po qd TERBINAFINE HCL 548 90578548 No Longer Active Checo Conklin MD Active REGLAN 10 MG TAB 1 po TID PRN Nausea METOCLOPRA MIDE HCL 41185645027 No Longer Active Checo Conklin MD Active CELEXA 20 MG TABS 1 tablet by mouth daily CITALOPRAM HYDROBROMIDE 12862652973 No Longer Active Checo Conklin MD Activ e AZITHROMYCIN 250 MG TABS 2 po qd x 1 day, then 1 po qd x 4 days AZITHROMYCIN 77217463858 No Longer Active Checo Conklin MD Active HYDROCODONE-ACETAMINOPHEN 5-325 MG TABS 1 po q 6hr PRN Pain 2013 HYDROCODONE-ACETAMINOPHEN 54585705047 No Longer Active Lenora Conklin MD Active PHENAZOPYRIDINE HCL 200 MG TABS take 1 tab po TID for bladder pa in PHENAZOPYRIDINE HCL 60549860386 No Longer Active Checo Joshua Active CIPRO 500 MG TAB 1 tablet by mouth twice daily CIPROFLOXACIN HCL 22354373388 No Longer Active Dangelo Rangel MD Active HYDROCODONE-ACETAMINOPHEN 5-325 MG TABS 1/2 to 1 po q 4 hour s prn cough HYDROCODONE-ACETAMINOPHEN 06701041147 No Longer Activ e Dangelo Rangel MD Active BACTRIM DS 800-160 MG TABS 1 po BID x 7 days 0 SULFAMETHOXAZOLE-TRIMETHOPRIM 30932019961 No Longer Active Checo Conklin MD Active PREDNISONE 20 MG TAB 2 tabs daily for 3 days, 1 t ab daily for 3 days, 1/2 tab daily for 2 days PREDNISONE 64828844174 No Longer Active Checo Conklin MD Active TRIAMCINOLONE ACETONIDE 0.1 % OINT Apply to affected a reas TID for up to 2 weeks TRIAMCINOLONE ACETONIDE 41725426612 No Longer A ctive Checo Conklin MD Active CEFDINIR 300 MG CAPS by mouth twice a day CEFDI JAZZY 83814285380 No Longer Active Dangelo Rangel MD Active BUPROPION HCL (SMOKING DETER) 150 MG [id number] 1 a day for 1 week then 1 twice a day BUPROPION HCL (SMOKING DETER) 34759307522 No Lo nger Active Checo Conklin MD Active SIMVASTATIN 20 MG TABS 1 po qd SIMVASTATIN 9187775651 5 Active Checo Conklin MD Active CHANTIX STARTING MONTH KARTHIK 0.5 MG X 11 & 1 MG X 42 TAB S 0.5mg daily for 3 days, then 0.5mg BID for 4 days, then 1mg BID VARENICLINE TARTRATE 86778647300 No Longer Active Checo Conklin MD Activ e XANAX 0.5 MG TABS 1 po BID PRN anxiety ALPRAZOLAM 23078770105 Active Checo Conklin MD Active CONCERTA 18 MG CR-TABS 1 po q a.m. METHYLPHENID ATE HCL 67827510220 No Longer Active Checo Conklin MD Active AMBIEN 5 MG TAB 1 po qHS PRN Insomnia ZOLPIDEM TARTRATE 78183893819 Active Checo Conklin MD Active TRAZODONE HCL 100 MG TAB 0.5 to 1 po qHS PRN Insomnia TRAZODONE HCL 24038328501 No Longer Active Checo Conklin MD Acti ve FIORICET 325-50-40 MG TAB 1 tablet by mouth four times daily as needed [id number] 91379239290 No Longer Active Checo Conklin MD Active PHENERGAN CREAM* 25mg applied to wrist q6hr PRN Nausea PHENERGAN CREAM* No Longer Active Checo Conklin MD A ctive FLONASE 50 MCG/ACT SUSP 1 spray each nostril am and hs FLUTICASONE PROPIONATE 61226988595 No Longer Active Checo Conklin MD Activ e ANTIPYRINE-BENZOCAINE 5.4-1.4 % SOLN 1-2 drops in affected ear BENZOCAINE-ANTIPYRINE 32797150014 No Longer Active Checo Conklin MD Active CEFDINIR 300 MG CAPS 1 po bid CEFDINIR 36871373 120 No Longer Active Checo Conklin MD Active PREDNISONE 20 MG TAB 2 tabs daily for 3 days, 1 t ab daily for 3 days, 1/2 tab daily for 2 days PREDNISONE 97950751799 No Longer Active Aracelis Conklin MD Active AZITHROMYCIN 250 MG TABS 2 po qd x 1 day, then 1 po qd x 4 days AZITHROMYCIN 99597737403 No Longer Active Checo Conklin MD Active PREDNISONE 20 MG TAB 2 tabs daily for 3 days, 1 t ab daily for 3 days, 1/2 tab daily for 2 days PREDNISONE 70282398077 No Longer Active Checo Conklin MD Active ZITHROMAX Z-KARTHIK 250 MG TABS 2 today, then 1 daily for 4 days 201 09/18/28 AZITHROMYCIN 03837692600 No Longer Active Palu Hamlin MD Active FOCALIN XR 10 MG [id number] 1 po q a.m. D EXMETHYLPHENIDATE HCL 21440701028 No Longer Active Paul Hamlin MD Activ e PERCOCET 10-325 MG TABS 1 tablet every 6 hours as needed for pain OXYCODONE-ACETAMINOPHEN 86476928574 No Longer Active Paul Hamlin MD Active LORTAB 5 5-500 MG TABS 1/2 to 1 tablet by mouth flaquito ry 4 hours as needed for pain HYDROCODONE-ACETAMINOPHEN 46262329793 No Longer Active Checo Conklin MD Active FOCALIN XR 15 MG [id number] 1 po q a.m. D EXMETHYLPHENIDATE HCL 11302665169 No Longer Active Checo Conklin MD Activ e ZOFRAN ODT 4 MG TBDP 1 po q6hr PRN Nausea ONDAN SETRON 91716525638 No Longer Active Checo Conklin MD Active PERCOCET 5-325 MG TABS 1 tablet by mouth every 6 hours as needed OXYCODONE-ACETAMINOPHEN 27012070718 No Longer Active Checo Conklin MD Active PYRIDIUM 200 MG TABS take 1 tab po TID prn urinary pain. 0 PHENAZOPYRIDINE HCL 00211269335 No Longer Active Checo Conklin MD Active FLUCONAZOLE 150 MG TABS take 1 tab po qday once 0 04/06 FLUCONAZOLE 80801852902 No Longer Active Dangelo Rangel MD Acti ve CIPRO 500 MG TAB 1 tablet by mouth twice daily CIPROFLOXACIN HCL 60340602295 No Longer Active Dangelo Rangel MD Active PYRIDIUM 200 MG TABS take 1 tab po TID prn urinary pain. 0 PYRIDIUM 200 MG TABS 0412204 PHENAZOPYRIDINE HCL Inactive PERCOCET 5-325 MG TABS 1 tablet by mouth every 6 hours as needed PERCOCET 5-325 MG TABS 8009978 OXYCODONE-ACETAMINOPHEN I nactive ZOFRAN ODT 4 MG TBDP 1 po q6hr PRN Nausea ZOFRAN ODT 4 MG TBDP 164693 ONDANSETRON Inactive FOCALIN XR 15 MG [id number] 1 po q a.m. F OCALIN XR 15 MG [id number] DEXMETHYLPHENIDATE HCL Inactive LORTAB 5 5-500 MG TABS 1/2 to 1 tablet by mouth flaquito ry 4 hours as needed for pain LORTAB 5 5-500 MG TABS HYDROCODONE-A CETAMINOPHEN Inactive PERCOCET 10-325 MG TABS 1 tablet every 6 hours as needed for pain PERCOCET 10-325 MG TABS 8809307 OXYCODONE-ACETAMINOPHEN Inactive FOCALIN XR 10 MG [id number] 1 po q a.m. F OCALIN XR 10 MG [id number] DEXMETHYLPHENIDATE HCL Inactive CEFDINIR 300 MG CAPS 1 po bid CEFDINIR 300 MG CAPS 20 0346 CEFDINIR Inactive ANTIPYRINE-BENZOCAINE 5.4-1.4 % SOLN 1-2 drops in affected ear ANTIPYRINE-BENZOCAINE 5.4-1.4 % SOLN 131037 BENZOCAINE-ANTIPYRINE I nactive FLONASE 50 MCG/ACT SUSP [...] PRN Insomnia TRAZODONE HCL 100 MG TAB 085665 TRAZODONE HCL Inactive CONCERTA 18 MG CR-TABS [...] s prn cough HYDROCODONE-ACETAMINOPHEN 5-325 MG TABS 964528 HYDROCODONE-ACETAMINOPHEN Inactive PHENAZOPYRIDINE HCL 200 MG TABS take 1 tab po TID for bladder pa in PHENAZOPYRIDINE HCL 200 MG TABS 1336675 PHENAZOPYRIDINE HCL Inactive HYDROCODONE-ACETAMINOPHEN 5-325 MG TABS 1 po q 6hr PRN Pain 2013 HYDROCODONE-ACETAMINOPHEN 5-325 MG TABS 085683 HYDROCODONE-ACETAMINOPHEN Inactive CELEXA 20 MG TABS 1 tablet by mouth daily CELEXA 20 MG TABS 068508 CITALOPRAM HYDROBROMIDE Inactive REGLAN 10 MG TAB 1 po TID PRN Nausea REGLAN 10 MG TAB 528308 METOCLOPRAMIDE HCL Inactive LAMISIL 250 MG TAB 1 po qd LAMISIL 250 MG TAB 134503 TERBINAFINE HCL Inactive DICLOFENAC SODIUM 75 MG TBEC 1 tablet by mouth twice daily P RN Knee pain DICLOFENAC SODIUM 75 MG TBEC 074840 DICLOFENAC S ODIUM Inactive METOCLOPRAMIDE HCL 10 MG ORAL TABS take one PO tid PRN nausea 20 29/12/14 METOCLOPRAMIDE HCL 10 MG ORAL TABS 735827 METOCLOPRAMID E HCL Inactive TERBINAFINE HCL 250 MG ORAL TABS take one table PO one time abran y TERBINAFINE HCL 250 MG ORAL TABS 292939 TERBINAFINE HCL Inactive BUPROPION HCL ER (SR) 100 MG ORAL [id number] take one t ablet by mouth one time daily for one week then take 1 two times daily BUPROPION HCL ER (SR) 100 MG ORAL [id number] BUPROPION HCL Inacti ve TRAVEL SICKNESS 25 MG ORAL CHEW chew and swallow one t ablet every 6 hours as needed TRAVEL SICKNESS 25 MG ORAL CHEW 863619 MECLIZINE HCL Inactive SUMATRIPTAN SUCCINATE 100 MG ORAL TABS Take one PRN for migrane SUMATRIPTAN SUCCINATE 100 MG ORAL TABS 340600 SUMATRIPT AN SUCCINATE Inactive COMPRO 25 MG RECTAL SUPP insert or apply one supposit ory rectally as directed every 12 hours as needed for nausea COMP RO 25 MG RECTAL SUPP 080470 PROCHLORPERAZINE Inactive ONDANSETRON [address] one tablet on tongue and allow to dissolve every 6 hours as needed for vomitting ON DANSETRON 8 MG ORAL TBDP 067246 ONDANSETRON Inactive HYDROCODONE-ACETAMINOPHEN 5-325 MG TABS 0.5 to 1 tab b y mouth every 6 hours as needed HYDROCODONE-ACETAMINOPHEN 5-325 MG TABS 8 76672 HYDROCODONE-ACETAMINOPHEN Inactive BACTRIM DS 800-160 MG TAB 1 tab by mouth twice daily 2 BACTRIM DS 800-160 MG TAB 19820918 TRIMETHOPRIM-SULFAMETHOXAZOLE Inac tive DIFLUCAN 150 MG TAB 1 tablet by mouth if needed, hold until symptoms start DIFLUCAN 150 MG TAB 105505 FLUCONAZOLE Inactive IBUPROFEN 800 MG TABS 1 tab every 8 hours with food 31/03/21 IBUPROFEN 800 MG TABS 887481 IBUPROFEN Inactive HYDROCODONE-ACETAMINOPHEN 5-325 MG TABS 1 tab by mouth every 6 hours as needed HYDROCODONE-ACETAMINOPHEN 5-325 MG TABS 174312 HYDROCODONE-ACETAMINOPHEN Inactive BACTROBAN 2 % CREAM Apply to affected area BID for up to 10 days BACTROBAN 2 % CREAM 293699 MUPIROCIN CALCIUM Inactive MAGNESIUM CITRATE 1.745 GM/30ML ORAL SOLN 150ml po BID PRN C onstipation MAGNESIUM CITRATE 1.745 GM/30ML ORAL SOLN 260401 0 MAGNESIUM CITRATE Inactive DIFLUCAN 150 MG TAB 1 tablet by mouth qod DIFLUCAN 150 MG TAB 922039 FLUCONAZOLE Inactive BACTRIM DS 800-160 MG TAB 1 tab by mouth twice daily 2 BACTRIM DS 800-160 MG TAB 775113 TRIMETHOPRIM-SULFAMETHOXAZOLE Inac tive CIPRO 500 MG TAB 1 tablet by mouth twice daily CIPRO 500 MG TAB 073476 CIPROFLOXACIN HCL Inactive FLUCONAZOLE 150 MG TABS take 1 tab po qday once 04/06 FLUCONAZOLE 150 MG TABS 213265 FLUCONAZOLE Inactive ZITHROMAX Z-KARTHIK 250 MG TABS 2 today, then 1 daily for 4 days 201 09/18/28 ZITHROMAX Z-KARTHIK 250 MG TABS 9783133 AZITHROMYCIN Inac tive PREDNISONE 20 MG TAB 2 tabs daily for 3 days, 1 t ab daily for 3 days, 1/2 tab daily for 2 days PREDNISONE 20 MG TAB 479625 PREDNISON E Inactive AZITHROMYCIN 250 MG TABS 2 po qd x 1 day, then 1 po qd x 4 days AZITHROMYCIN 250 MG TABS 5173329 AZITHROMYCIN Inactiv e PREDNISONE 20 MG TAB 2 tabs daily for 3 days, 1 t ab daily for 3 days, 1/2 tab daily for 2 days PREDNISONE 20 MG TAB 646714 PREDNISON E Inactive CEFDINIR 300 MG CAPS by mouth twice a day CEFDINIR 300 MG CAPS 221314 CEFDINIR Inactive TRIAMCINOLONE ACETONIDE 0.1 % OINT Apply to affected a reas TID for up to 2 weeks TRIAMCINOLONE ACETONIDE 0.1 % OINT 174722 6 TRIAMCINOLONE ACETONIDE Inactive PREDNISONE 20 MG TAB 2 tabs daily for 3 days, 1 t ab daily for 3 days, 1/2 tab daily for 2 days PREDNISONE 20 MG TAB 426878 PREDNISON E Inactive BACTRIM DS 800-160 MG TABS 1 po BID x 7 days 0 BACTRIM DS 800-160 MG TABS 306293 SULFAMETHOXAZOLE-TRIMETHOPRIM Inactive CIPRO 500 MG TAB 1 tablet by mouth twice daily CIPRO 500 MG TAB 698595 CIPROFLOXACIN HCL Inactive AZITHROMYCIN 250 MG TABS 2 po qd x 1 day, then 1 po qd x 4 days AZITHROMYCIN 250 MG TABS 5899350 AZITHROMYCIN Inactiv e FLAGYL 500 MG TAB 1 tablet by mouth bid FLAGYL 500 MG TAB 195391 METRONIDAZOLE Inactive AZITHROMYCIN 250 MG TABS 2 po qd x 1 day, then 1 po qd x 4 days AZITHROMYCIN 250 MG TABS 7312392 AZITHROMYCIN Inactiv e Immunizations Vaccine Administration Date [...] ... - Chemistry sodium, serum 141 mmol/L 203-257 8910/01/26 carbon dioxide, venous blood 30.0 mmol/L 21.0-32 .0 potassium, serum 4.0 mmol/L 3.5-5.2 chloride, serum 105 mmol/L 98-107 blood glucose 85 mg/dL 65-110 urea nitrogen, blood 9 mg/dL 7-18 creatinine, serum 0.66 mg/dL 0.55-1.30 alanine aminotransferase (SGPT), serum 31 U/L 12-78 aspartate aminotransferase (SGOT), serum 21 U/L 15-37 calcium, serum 8.2 mg/dL 8.5-10.1 bilirubin, serum, total 1.10 mg/dL 0.00-1.00 cholesterol, serum 178 mg/dL 431-935 6933/01/26 triglyceride, serum, fasting 149 mg/dL 30-200 HDL [...] ... - Chemistry sodium, serum 137 mmol/L 357-799 8242/05/27 carbon dioxide, venous blood 29.1 mmol/L 21.0-32 [...] 5.0-8.5 Encounters Code Encounter Date Provider Facility CPT-42925 Level 2 Est. Patient 19:53:27 CDT Tanner hill MD [facility] CPT-52084 Level 3 Est. Patient 09:15:34 CDT Efren almendarez [facility] CPT-05965 Level 3 Est. Patient 11:28:51 [employer]IDE Efren almendarez [facility] CPT-92152 Level 4 Est. Patient 13:55:46 PUBLIC HEALTH AIDE Checo Conklin MD [facility] CPT-36489 Level 4 Est. Patient 17:10:53 CDT Checo Conklin MD [facility] CPT-64665 Level 3 Est. Patient 15:56:22 CDT Checo Conklin MD [facility] CPT-80689 Level 3 Est. Patient 15:29:07 CDT Checo Conklin MD [facility] CPT-04607 Level 3 Est. Patient 14:38:41 CDT Checo Conklin MD [facility] CPT-33787 Level 3 Est. Patient 15:22:03 [employer] HEALTH AIDE Thomas reynolds DO [facility] CPT-05604 Level 3 Est. Patient 13:34:17 [employer] HEALTH AIDE Checo Conklin MD [facility] CPT-38676 Level 3 Est. Patient 12:29:32 CDT Dangelo arroyo MD [facility] CPT-00988 Level 3 Est. Patient 16:53:02 CDT Checo Conklin MD [facility] CPT-25656 Level 3 Est. Patient 16:37:13 CDT Checo Conklin MD [facility] CPT-68791 Level 3 Est. Patient 16:16:59 CDT Paul Hamlin MD [facility] CPT-05131 Level 3 Est. Patient 14:20:13 CDT Dangelo arroyo MD [facility] CPT-60184 Level 4 Est. Patient 11:29:33 CDT Checo Conklin MD [facility] CPT-95161 Level 3 Est. Patient 17:08:31 CDT Checo Conklin MD [facility] CPT-27010 Level 3 Est. Patient 16:50:42 PUBLIC HEALTH AIDE Checo Conklin MD [facility] CPT-05856 Level 4 Est. Patient 09:26:08 PUBLIC HEALTH AIDE Checo Conklin MD [facility] CPT-16111 Level 3 Est. Patient 11:37:10 CDT Checo Conklin MD [facility] CPT-62310 Level 4 Est. Patient 14:07:38 CDT Checo Conklin MD [facility] CPT-28552 Level 3 Est. Patient 09:54:41 CDT Checo Conklin MD [facility] CPT-25197 Level 3 Est. Patient 11:10:54 CDT Paul Hamlin MD [facility] CPT-16942 Level 3 Est. Patient 14:16:56 [employer] HE[employer] AIDE Checo Conklin MD [facility] CPT-20688 Level 3 Est. Patient 11:04:11 [employer] HEALTH AIDE Checo Conklin MD [facility] CPT-93881 Level 3 Est. Patient 17:09:26 CDT Dangelo arroyo MD [facility] CPT-34019 Level 3 Est. Patient 16:54:37 CDT Checo Conklin MD [facility] Procedures Code Procedure Name Date Entry Date Standard Desc ription CPT-LR Lesion Removal 19:53:27 CDT CPT-OV Office Visit 11:31:28 CDT CPT-40373 Tubersol 09:39:29 CDT CPT-J2550 Phenergan 25 mg (Promethazine) 13:59:02 [employer] HE[employer] AIDE CPT-J1885 Toradol 60 mg (Ketorolac) 13:59:02 PUBLIC HEALTH AIDE 2012
--- OUTSIDE RECORDS SUMMARY | 2019-09-29 02:10 | XMS REPORT | Clinical Summary ---
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 [...] tab by mouth twice daily 2 TRIMETHOPRIM-SULFAMETHOXAZOLE 87416264376 No Longer Active Tanner Carrillo MD Active DIFLUCAN 150 MG TAB 1 tablet by mouth qod FLUCO NAZOLE 42345177390 No Longer Active Efren Medel APRN Active CLARITIN 10 MG TAB 1 tablet by mouth daily as needed for allergies LORATADINE 82762403623 Active Jillina Frajoel EATING DISORDER SPECIALIST Active AZITHROMYCIN 250 MG TABS 2 po qd x 1 day, then 1 po qd x 4 days AZITHROMYCIN 33734571811 No Longer Active Jillina Lizy RIDDLEN Active FLAGYL 500 MG TAB 1 tablet by mouth bid METRONI DAZOLE 41678073894 No Longer Active Checo Conklin MD Active FOCALIN XR 10 MG ORAL [id number] 1 po q a.m. DEX METHYLPHENIDATE HCL 48163405147 Active Checo Conklin MD Active MAGNESIUM CITRATE 1.745 GM/30ML ORAL SOLN 150ml po BID PRN C onstipation MAGNESIUM CITRATE 66600928298 No Longer Active Checo Conklin MD Active BACTROBAN 2 % CREAM Apply to affected area BID for up to 10 days MUPIROCIN CALCIUM 39109309836 No Longer Active Checo Conklin MD Active HYDROCODONE-ACETAMINOPHEN 5-325 MG TABS 1 tab by mouth every 6 hours as needed HYDROCODONE-ACETAMINOPHEN 75432102317 No Longer Activ e Checo Conklin MD Active IBUPROFEN 800 MG TABS 1 tab every 8 hours with food 20 31/03/21 IBUPROFEN 79997200203 No Longer Active Checo Conklin MD Activ e DIFLUCAN 150 MG TAB 1 tablet by mouth if needed, hold until symptoms start FLUCONAZOLE 90239599229 No Longer Active Checo Ortiz MD Active BACTRIM DS 800-160 MG TAB 1 tab by mouth twice daily 2 TRIMETHOPRIM-SULFAMETHOXAZOLE 01521222186 No Longer Active Corry leong LPN Active MIRALAX PACK 1 po qd PRN Constipation POLYETHYL JOEL GLYCOL 3350 60378340864 Active Checo Conklin MD Active HYDROCODONE-ACETAMINOPHEN 5-325 MG TABS 0.5 to 1 tab b y mouth every 6 hours as needed HYDROCODONE-ACETAMINOPHEN 66613848579 No Longer Active Checo Conklin MD Active ONDANSETRON [address] one tablet on tongue and allow to dissolve every 6 hours as needed for vomitting ONDANSETRO N 03130581967 No Longer Active Checo Conklin MD Active COMPRO 25 MG RECTAL SUPP insert or apply one supposit ory rectally as directed every 12 hours as needed for nausea PROCHLORPERA ZINE 76699592994 No Longer Active Checo Conklin MD Active SUMATRIPTAN SUCCINATE 100 MG ORAL TABS Take one PRN for migrane SUMATRIPTAN SUCCINATE 60159044926 No Longer Active Checo Conklin MD Active TRAVEL SICKNESS 25 MG ORAL CHEW chew and swallow one t ablet every 6 hours as needed MECLIZINE HCL 33268780611 No Longer Active Joe Conklin MD Active BUPROPION HCL ER (SR) 100 MG ORAL [id number] take one t ablet by mouth one time daily for one week then take 1 two times daily BUPROPION HCL 02498794277 No Longer Active Checo Conklin MD Activ e TERBINAFINE HCL 250 MG ORAL TABS take one table PO one time abran y TERBINAFINE HCL 28411732130 No Longer Active Checo Conklin MD Active METOCLOPRAMIDE HCL 10 MG ORAL TABS take one PO tid PRN nausea 20 29/12/14 METOCLOPRAMIDE HCL 21559673556 No Longer Active Checo Conklin MD Active DICLOFENAC SODIUM 75 MG TBEC 1 tablet by mouth twice daily P RN Knee pain DICLOFENAC SODIUM 80013091938 No Longer Active Checo Conklin MD Active LAMISIL 250 MG TAB 1 po qd TERBINAFINE HCL 548 12568656 No Longer Active Checo Conklin MD Active REGLAN 10 MG TAB 1 po TID PRN Nausea METOCLOPRA MIDE HCL 96120416164 No Longer Active Checo Conklin MD Active CELEXA 20 MG TABS 1 tablet by mouth daily CITALOPRAM HYDROBROMIDE 69730479091 No Longer Active Checo Conklin MD Activ e AZITHROMYCIN 250 MG TABS 2 po qd x 1 day, then 1 po qd x 4 days AZITHROMYCIN 42977842534 No Longer Active Checo Conklin MD Active HYDROCODONE-ACETAMINOPHEN 5-325 MG TABS 1 po q 6hr PRN Pain 2013 HYDROCODONE-ACETAMINOPHEN 81789193353 No Longer Active Lenora Conklin MD Active PHENAZOPYRIDINE HCL 200 MG TABS take 1 tab po TID for bladder pa in PHENAZOPYRIDINE HCL 52771910459 No Longer Active Checo Joshua Active CIPRO 500 MG TAB 1 tablet by mouth twice daily CIPROFLOXACIN HCL 53700214357 No Longer Active Dangelo Rangel MD Active HYDROCODONE-ACETAMINOPHEN 5-325 MG TABS 1/2 to 1 po q 4 hour s prn cough HYDROCODONE-ACETAMINOPHEN 24364370364 No Longer Activ e Dangelo Rangel MD Active BACTRIM DS 800-160 MG TABS 1 po BID x 7 days 0 SULFAMETHOXAZOLE-TRIMETHOPRIM 61401818776 No Longer Active Checo Conklin MD Active PREDNISONE 20 MG TAB 2 tabs daily for 3 days, 1 t ab daily for 3 days, 1/2 tab daily for 2 days PREDNISONE 11956897872 No Longer Active Checo Conklin MD Active TRIAMCINOLONE ACETONIDE 0.1 % OINT Apply to affected a reas TID for up to 2 weeks TRIAMCINOLONE ACETONIDE 92069815637 No Longer A ctive Checo Conklin MD Active CEFDINIR 300 MG CAPS by mouth twice a day CEFDI JAZZY 61950613293 No Longer Active Dangelo Rangel MD Active BUPROPION HCL (SMOKING DETER) 150 MG [id number] 1 a day for 1 week then 1 twice a day BUPROPION HCL (SMOKING DETER) 96771673449 No Lo nger Active Checo Conklin MD Active SIMVASTATIN 20 MG TABS 1 po qd SIMVASTATIN 2796566029 5 Active Checo Conklin MD Active CHANTIX STARTING MONTH KARTHIK 0.5 MG X 11 & 1 MG X 42 TAB S 0.5mg daily for 3 days, then 0.5mg BID for 4 days, then 1mg BID VARENICLINE TARTRATE 88466000055 No Longer Active Checo Conklin MD Activ e XANAX 0.5 MG TABS 1 po BID PRN anxiety ALPRAZOLAM 69088789757 Active Checo Conklin MD Active CONCERTA 18 MG CR-TABS 1 po q a.m. METHYLPHENID ATE HCL 19582746914 No Longer Active Checo Conklin MD Active AMBIEN 5 MG TAB 1 po qHS PRN Insomnia ZOLPIDEM TARTRATE 06985489266 Active Checo Conklin MD Active TRAZODONE HCL 100 MG TAB 0.5 to 1 po qHS PRN Insomnia TRAZODONE HCL 23870855413 No Longer Active Checo Conklin MD Acti ve FIORICET 325-50-40 MG TAB 1 tablet by mouth four times daily as needed [id number] 68666473520 No Longer Active Checo Conklin MD Active PHENERGAN CREAM* 25mg applied to wrist q6hr PRN Nausea PHENERGAN CREAM* No Longer Active Checo Conklin MD A ctive FLONASE 50 MCG/ACT SUSP 1 spray each nostril am and hs FLUTICASONE PROPIONATE 42884999003 No Longer Active Checo Conklin MD Activ e ANTIPYRINE-BENZOCAINE 5.4-1.4 % SOLN 1-2 drops in affected ear BENZOCAINE-ANTIPYRINE 46297515447 No Longer Active Checo Conklin MD Active CEFDINIR 300 MG CAPS 1 po bid CEFDINIR 11108328 120 No Longer Active Checo Conklin MD Active PREDNISONE 20 MG TAB 2 tabs daily for 3 days, 1 t ab daily for 3 days, 1/2 tab daily for 2 days PREDNISONE 44550182597 No Longer Active Aracelis Conklin MD Active AZITHROMYCIN 250 MG TABS 2 po qd x 1 day, then 1 po qd x 4 days AZITHROMYCIN 84454593328 No Longer Active Checo Conklin MD Active PREDNISONE 20 MG TAB 2 tabs daily for 3 days, 1 t ab daily for 3 days, 1/2 tab daily for 2 days PREDNISONE 75307897730 No Longer Active Checo Conklin MD Active ZITHROMAX Z-KARTHIK 250 MG TABS 2 today, then 1 daily for 4 days 201 09/18/28 AZITHROMYCIN 72819975353 No Longer Active Paul Hamlin MD Active FOCALIN XR 10 MG [id number] 1 po q a.m. D EXMETHYLPHENIDATE HCL 77223810726 No Longer Active Paul Hamlin MD Activ e PERCOCET 10-325 MG TABS 1 tablet every 6 hours as needed for pain OXYCODONE-ACETAMINOPHEN 07261553066 No Longer Active Paul Hamlin MD Active LORTAB 5 5-500 MG TABS 1/2 to 1 tablet by mouth flaquito ry 4 hours as needed for pain HYDROCODONE-ACETAMINOPHEN 17568897125 No Longer Active Checo Conklin MD Active FOCALIN XR 15 MG [id number] 1 po q a.m. D EXMETHYLPHENIDATE HCL 19302914730 No Longer Active Checo Conklin MD Activ e ZOFRAN ODT 4 MG TBDP 1 po q6hr PRN Nausea ONDAN SETRON 55264705994 No Longer Active Checo Conklin MD Active PERCOCET 5-325 MG TABS 1 tablet by mouth every 6 hours as needed OXYCODONE-ACETAMINOPHEN 45570430701 No Longer Active Checo Conklin MD Active PYRIDIUM 200 MG TABS take 1 tab po TID prn urinary pain. 0 PHENAZOPYRIDINE HCL 56038570365 No Longer Active Checo Conklin MD Active FLUCONAZOLE 150 MG TABS take 1 tab po qday once 0 04/06 FLUCONAZOLE 09769843920 No Longer Active Dangelo Rangel MD Acti ve CIPRO 500 MG TAB 1 tablet by mouth twice daily CIPROFLOXACIN HCL 13085887358 No Longer Active Dangelo Rangel MD Active PYRIDIUM 200 MG TABS take 1 tab po TID prn urinary pain. 0 PYRIDIUM 200 MG TABS 5252739 PHENAZOPYRIDINE HCL Inactive PERCOCET 5-325 MG TABS 1 tablet by mouth every 6 hours as needed PERCOCET 5-325 MG TABS 6929154 OXYCODONE-ACETAMINOPHEN I nactive ZOFRAN ODT 4 MG TBDP 1 po q6hr PRN Nausea ZOFRAN ODT 4 MG TBDP 476620 ONDANSETRON Inactive FOCALIN XR 15 MG [id number] 1 po q a.m. F OCALIN XR 15 MG [id number] DEXMETHYLPHENIDATE HCL Inactive LORTAB 5 5-500 MG TABS 1/2 to 1 tablet by mouth flaquito ry 4 hours as needed for pain LORTAB 5 5-500 MG TABS HYDROCODONE-A CETAMINOPHEN Inactive PERCOCET 10-325 MG TABS 1 tablet every 6 hours as needed for pain PERCOCET 10-325 MG TABS 3426445 OXYCODONE-ACETAMINOPHEN Inactive FOCALIN XR 10 MG [id number] 1 po q a.m. F OCALIN XR 10 MG [id number] DEXMETHYLPHENIDATE HCL Inactive CEFDINIR 300 MG CAPS 1 po bid CEFDINIR 300 MG CAPS 20 0346 CEFDINIR Inactive ANTIPYRINE-BENZOCAINE 5.4-1.4 % SOLN 1-2 drops in affected ear ANTIPYRINE-BENZOCAINE 5.4-1.4 % SOLN 340291 BENZOCAINE-ANTIPYRINE I nactive FLONASE 50 MCG/ACT SUSP [...] PRN Insomnia TRAZODONE HCL 100 MG TAB 339333 TRAZODONE HCL Inactive CONCERTA 18 MG CR-TABS [...] s prn cough HYDROCODONE-ACETAMINOPHEN 5-325 MG TABS 245480 HYDROCODONE-ACETAMINOPHEN Inactive PHENAZOPYRIDINE HCL 200 MG TABS take 1 tab po TID for bladder pa in PHENAZOPYRIDINE HCL 200 MG TABS 9397446 PHENAZOPYRIDINE HCL Inactive HYDROCODONE-ACETAMINOPHEN 5-325 MG TABS 1 po q 6hr PRN Pain 2013 HYDROCODONE-ACETAMINOPHEN 5-325 MG TABS 689614 HYDROCODONE-ACETAMINOPHEN Inactive CELEXA 20 MG TABS 1 tablet by mouth daily CELEXA 20 MG TABS 842377 CITALOPRAM HYDROBROMIDE Inactive REGLAN 10 MG TAB 1 po TID PRN Nausea REGLAN 10 MG TAB 759386 METOCLOPRAMIDE HCL Inactive LAMISIL 250 MG TAB 1 po qd LAMISIL 250 MG TAB 098538 TERBINAFINE HCL Inactive DICLOFENAC SODIUM 75 MG TBEC 1 tablet by mouth twice daily P RN Knee pain DICLOFENAC SODIUM 75 MG TBEC 548625 DICLOFENAC S ODIUM Inactive METOCLOPRAMIDE HCL 10 MG ORAL TABS take one PO tid PRN nausea 20 29/12/14 METOCLOPRAMIDE HCL 10 MG ORAL TABS 585459 METOCLOPRAMID E HCL Inactive TERBINAFINE HCL 250 MG ORAL TABS take one table PO one time abran y TERBINAFINE HCL 250 MG ORAL TABS 661162 TERBINAFINE HCL Inactive BUPROPION HCL ER (SR) 100 MG ORAL [id number] take one t ablet by mouth one time daily for one week then take 1 two times daily BUPROPION HCL ER (SR) 100 MG ORAL [id number] BUPROPION HCL Inacti ve TRAVEL SICKNESS 25 MG ORAL CHEW chew and swallow one t ablet every 6 hours as needed TRAVEL SICKNESS 25 MG ORAL CHEW 904390 MECLIZINE HCL Inactive SUMATRIPTAN SUCCINATE 100 MG ORAL TABS Take one PRN for migrane SUMATRIPTAN SUCCINATE 100 MG ORAL TABS 628713 SUMATRIPT AN SUCCINATE Inactive COMPRO 25 MG RECTAL SUPP insert or apply one supposit ory rectally as directed every 12 hours as needed for nausea COMP RO 25 MG RECTAL SUPP 248184 PROCHLORPERAZINE Inactive ONDANSETRON [address] one tablet on tongue and allow to dissolve every 6 hours as needed for vomitting ON DANSETRON 8 MG ORAL TBDP 258798 ONDANSETRON Inactive HYDROCODONE-ACETAMINOPHEN 5-325 MG TABS 0.5 to 1 tab b y mouth every 6 hours as needed HYDROCODONE-ACETAMINOPHEN 5-325 MG TABS 8 86780 HYDROCODONE-ACETAMINOPHEN Inactive BACTRIM DS 800-160 MG TAB 1 tab by mouth twice daily 2 BACTRIM DS 800-160 MG TAB 642243 TRIMETHOPRIM-SULFAMETHOXAZOLE Inac tive DIFLUCAN 150 MG TAB 1 tablet by mouth if needed, hold until symptoms start DIFLUCAN 150 MG TAB 131757 FLUCONAZOLE Inactive IBUPROFEN 800 MG TABS 1 tab every 8 hours with food 31/03/21 IBUPROFEN 800 MG TABS 308074 IBUPROFEN Inactive HYDROCODONE-ACETAMINOPHEN 5-325 MG TABS 1 tab by mouth every 6 hours as needed HYDROCODONE-ACETAMINOPHEN 5-325 MG TABS 156791 HYDROCODONE-ACETAMINOPHEN Inactive BACTROBAN 2 % CREAM Apply to affected area BID for up to 10 days BACTROBAN 2 % CREAM 618252 MUPIROCIN CALCIUM Inactive MAGNESIUM CITRATE 1.745 GM/30ML ORAL SOLN 150ml po BID PRN C onstipation MAGNESIUM CITRATE 1.745 GM/30ML ORAL SOLN 055015 0 MAGNESIUM CITRATE Inactive DIFLUCAN 150 MG TAB 1 tablet by mouth qod DIFLUCAN 150 MG TAB 945367 FLUCONAZOLE Inactive BACTRIM DS 800-160 MG TAB 1 tab by mouth twice daily 2 BACTRIM DS 800-160 MG TAB 035984 TRIMETHOPRIM-SULFAMETHOXAZOLE Inac tive CIPRO 500 MG TAB 1 tablet by mouth twice daily CIPRO 500 MG TAB 335676 CIPROFLOXACIN HCL Inactive FLUCONAZOLE 150 MG TABS take 1 tab po qday once 04/06 FLUCONAZOLE 150 MG TABS 291181 FLUCONAZOLE Inactive ZITHROMAX Z-KARTHIK 250 MG TABS 2 today, then 1 daily for 4 days 201 09/18/28 ZITHROMAX Z-KARTHIK 250 MG TABS 1630958 AZITHROMYCIN Inac tive PREDNISONE 20 MG TAB 2 tabs daily for 3 days, 1 t ab daily for 3 days, 1/2 tab daily for 2 days PREDNISONE 20 MG TAB 289784 PREDNISON E Inactive AZITHROMYCIN 250 MG TABS 2 po qd x 1 day, then 1 po qd x 4 days AZITHROMYCIN 250 MG TABS 3613504 AZITHROMYCIN Inactiv e PREDNISONE 20 MG TAB 2 tabs daily for 3 days, 1 t ab daily for 3 days, 1/2 tab daily for 2 days PREDNISONE 20 MG TAB 203603 PREDNISON E Inactive CEFDINIR 300 MG CAPS by mouth twice a day CEFDINIR 300 MG CAPS 700047 CEFDINIR Inactive TRIAMCINOLONE ACETONIDE 0.1 % OINT Apply to affected a reas TID for up to 2 weeks TRIAMCINOLONE ACETONIDE 0.1 % OINT 864243 6 TRIAMCINOLONE ACETONIDE Inactive PREDNISONE 20 MG TAB 2 tabs daily for 3 days, 1 t ab daily for 3 days, 1/2 tab daily for 2 days PREDNISONE 20 MG TAB 072597 PREDNISON E Inactive BACTRIM DS 800-160 MG TABS 1 po BID x 7 days 0 BACTRIM DS 800-160 MG TABS 827488 SULFAMETHOXAZOLE-TRIMETHOPRIM Inactive CIPRO 500 MG TAB 1 tablet by mouth twice daily CIPRO 500 MG TAB 096784 CIPROFLOXACIN HCL Inactive AZITHROMYCIN 250 MG TABS 2 po qd x 1 day, then 1 po qd x 4 days AZITHROMYCIN 250 MG TABS 8745276 AZITHROMYCIN Inactiv e FLAGYL 500 MG TAB 1 tablet by mouth bid FLAGYL 500 MG TAB 381092 METRONIDAZOLE Inactive AZITHROMYCIN 250 MG TABS 2 po qd x 1 day, then 1 po qd x 4 days AZITHROMYCIN 250 MG TABS 0075557 AZITHROMYCIN Inactiv e Immunizations Vaccine Administration Date [...] ... - Chemistry sodium, serum 141 mmol/L 201-798 8368/01/26 carbon dioxide, venous blood 30.0 mmol/L 21.0-32 .0 potassium, serum 4.0 mmol/L 3.5-5.2 chloride, serum 105 mmol/L 98-107 blood glucose 85 mg/dL 65-110 urea nitrogen, blood 9 mg/dL 7-18 creatinine, serum 0.66 mg/dL 0.55-1.30 alanine aminotransferase (SGPT), serum 31 U/L 12-78 aspartate aminotransferase (SGOT), serum 21 U/L 15-37 calcium, serum 8.2 mg/dL 8.5-10.1 bilirubin, serum, total 1.10 mg/dL 0.00-1.00 cholesterol, serum 178 mg/dL 672-280 7686/01/26 triglyceride, serum, fasting 149 mg/dL 30-200 HDL [...] ... - Chemistry sodium, serum 137 mmol/L 425-879 6880/05/27 carbon dioxide, venous blood 29.1 mmol/L 21.0-32 [...] 5.0-8.5 Encounters Code Encounter Date Provider Facility CPT-40029 Level 2 Est. Patient 19:53:27 CDT Tanner hill MD [facility] CPT-97263 Level 3 Est. Patient 09:15:34 CDT Efren almendarez [facility] CPT-44339 Level 3 Est. Patient 11:28:51 SECOND TIME WORKER Efren almendarez [facility] CPT-01085 Level 4 Est. Patient 13:55:46 SECOND TIME WORKER Checo Conklin MD [facility] CPT-03078 Level 4 Est. Patient 17:10:53 CDT Checo Conklin MD [facility] CPT-39039 Level 3 Est. Patient 15:56:22 CDT Checo Conklin MD [facility] CPT-54063 Level 3 Est. Patient 15:29:07 CDT Checo Conklin MD [facility] CPT-57463 Level 3 Est. Patient 14:38:41 CDT Checo Conklin MD [facility] CPT-59106 Level 3 Est. Patient 15:22:03 SECOND TIME WORKER Thomas reynolds DO [facility] CPT-50359 Level 3 Est. Patient 13:34:17 SECOND TIME WORKER Checo Conklin MD [facility] CPT-73835 Level 3 Est. Patient 12:29:32 CDT Dangelo arroyo MD [facility]-49683 Level 3 Est. Patient 16:53:02 CDT Checo Conklin MD [facility] CPT-02777 Level 3 Est. Patient 16:37:13 CDT Checo Conklin MD [facility] CPT-09314 Level 3 Est. Patient 16:16:59 CDT Paul Hamlin MD [facility]-21770 Level 3 Est. Patient 14:20:13 CDT Dangelo arroyo MD [facility] CPT-74915 Level 4 Est. Patient 11:29:33 CDT Checo Conklin MD [facility] CPT-34918 Level 3 Est. Patient 17:08:31 CDT Checo Conklin MD [facility] CPT-68596 Level 3 Est. Patient 16:50:42 SECOND TIME WORKER Checo Conklin MD [facility] CPT-49883 Level 4 Est. Patient 09:26:08 SECOND TIME WORKER Checo Conklin MD [facility] CPT-54689 Level 3 Est. Patient 11:37:10 CDT Checo Conklin MD [facility] CPT-80396 Level 4 Est. Patient 14:07:38 CDT Checo Conklin MD [facility] CPT-65951 Level 3 Est. Patient 09:54:41 CDT Checo Conklin MD [facility] CPT-75455 Level 3 Est. Patient 11:10:54 CDT Paul Hamlin MD [facility] CPT-53414 Level 3 Est. Patient 14:16:56 SECOND TIME WORKER Checo Conklin MD [facility] CPT-23282 Level 3 Est. Patient 11:04:11 SECOND TIME WORKER Checo Conklin MD [facility] CPT-95487 Level 3 Est. Patient 17:09:26 CDT Dangelo arroyo MD [facility] CPT-00330 Level 3 Est. Patient 16:54:37 CDT Checo Conklin MD [facility] Procedures Code Procedure Name Date Entry Date Standard Desc ription CPT-LR Lesion Removal 19:53:27 CDT CPT-OV Office Visit 11:31:28 CDT CPT-25431 Tubersol 09:39:29 CDT CPT-J2550 Phenergan 25 mg (Promethazine) 13:59:02 SECOND TIME WORKER CPT-J1885 Toradol 60 mg (Ketorolac) 13:59:02 SECOND TIME WORKER 2012
--- OUTSIDE RECORDS SUMMARY | 2019-09-29 02:11 | XMS REPORT | Clinical Summary ---
Author Author Admin, Bethany Ayala [facility] Address Unknown Phone Unavailable Allergies, Adverse [...] or mass in breast Mastalgia 611.71 Resolved Cehco Conklin MD Mastodynia Sinusitis 461.9 Resolved Checo [...] or maintaining sleep Bacterial vaginosis 616.10 Resolved Cehco martinez MD Vaginitis and vulvovaginitis, unspecified Pharyngitis [...] ICD-850.9 Inactive Checo Joshua UTI ICD-599.0 Inactive Cheoc Conklin MD 2013 ABDOMINAL PAIN RIGHT LOWER [...] TABLET 1 po qd PAR OXETINE HCL 54350453153 Active Checo Conklin MD Active MIRALAX ORAL POWDER 8.5 to 17g po qd PRN Constipation POLYETHYLENE GLYCOL 3350 [id number] No Longer Active Checo Conklin MD Active PROTONIX 40 MG ORAL TABLET DELAYED RELEASE 1 pill by m outh daily, for acid reflux PANTOPRAZOLE SODIUM 22558024457 No Longer Activ e Corry Méndez LPN Active FLAGYL 500 MG ORAL TABLET 1 tablet by mouth bid 08/29 METRONIDAZOLE 31349174737 No Longer Active Corry Méndez LPN Active CLARITHROMYCIN 500 MG ORAL TABLET 1 tab po BID x 14 days CLARITHROMYCIN 18000801899 No Longer Active Corry Méndez LPN Active AMOXICILLIN 500 MG ORAL CAPSULE 2 po BID x 14 days for H. Pylori AMOXICILLIN 19496208043 No Longer Active Corry Méndez LPN Active FLUTICASONE PROPIONATE 50 MCG/ACT NASAL SUSPENSION 2 s prays/nostril qd PRN Congestion/Allergies FLUTICASONE PROPIONATE 0064741750 9 No Longer Active Checo Conklin MD Active AMOXICILLIN 500 MG ORAL CAPSULE 2 po BID x 10 days 201 01/15/27 AMOXICILLIN 95872257403 No Longer Active Checo Conklin MD Activ e CLARITIN 10 MG ORAL TABLET 1 tablet by mouth daily as needed for allergies LORATADINE 39853867060 No Longer Active Checo Ortiz MD Active BACTRIM DS 800-160 MG ORAL TABLET 1 tab by mouth twice daily 201 12/19/26 TRIMETHOPRIM-SULFAMETHOXAZOLE 02069318063 No Longer Active Ragini Carrillo MD Active DIFLUCAN 150 MG ORAL TABLET 1 tablet by mouth qod 2015 FLUCONAZOLE 37654281515 No Longer Active Efren Medel APRN Act mike AZITHROMYCIN 250 MG ORAL TABLET 2 po qd x 1 day, then 1 po q d x 4 days AZITHROMYCIN 61787218892 No Longer Active Efren flores APRN Active FLAGYL 500 MG ORAL TABLET 1 tablet by mouth bid 04/13 METRONIDAZOLE 22119204498 No Longer Active Checo Conklin MD Acti ve FOCALIN XR 10 MG ORAL CAPSULE EXTENDED RELEASE 24 HOUR 1 po q a.m. DEXMETHYLPHENIDATE HCL 89921036269 Active Checo Conklin MD Active MAGNESIUM CITRATE 1.745 GM/30ML ORAL SOLUTION 150ml po BID P RN Constipation MAGNESIUM CITRATE 40281592768 No Longer Active Checo Conklin MD Active BACTROBAN 2 % EXTERNAL CREAM Apply to affected area BID for up to 10 days MUPIROCIN CALCIUM 10214139106 No Longer Active Checo Conklin MD Active HYDROCODONE-ACETAMINOPHEN 5-325 MG ORAL TABLET 1 tab b y mouth every 6 hours as needed HYDROCODONE-ACETAMINOPHEN 92042885821 No Longer Active Checo Conklin MD Active IBUPROFEN 800 MG ORAL TABLET 1 tab every 8 hours with food 03/20 IBUPROFEN 63459131561 No Longer Active Checo Conklin MD Active DIFLUCAN 150 MG ORAL TABLET 1 tablet by mouth if neede d, hold until symptoms start FLUCONAZOLE 28875285247 No Longer Active Checo Conklin MD Active BACTRIM DS 800-160 MG ORAL TABLET 1 tab by mouth twice daily 201 11/23/03 TRIMETHOPRIM-SULFAMETHOXAZOLE 20139998977 No Longer Active K bernice Méndez LPN Active HYDROCODONE-ACETAMINOPHEN 5-325 MG ORAL TABLET 0.5 to 1 tab by mouth every 6 hours as needed HYDROCODONE-ACETAMINOPHEN 32865710002 No Longer Active Checo Conklin MD Active ONDANSETRON 8 MG ORAL TABLET DISINTEGRATING place one tablet on tongue and allow to dissolve every 6 hours as needed for vomitting ONDANSETRON 59729188434 No Longer Active Checo Conklin MD Activ e COMPRO 25 MG RECTAL SUPPOSITORY insert or apply one garza ppository rectally as directed every 12 hours as needed for nausea PROCHLORPERAZINE 96627182694 No Longer Active Checo Conklin MD A ctive SUMATRIPTAN SUCCINATE 100 MG ORAL TABLET Take one PRN for migran e SUMATRIPTAN SUCCINATE 90827192091 No Longer Active Checo Conklin MD Active TRAVEL SICKNESS 25 MG ORAL TABLET CHEWABLE chew and sw allow one tablet every 6 hours as needed MECLIZINE HCL 33196563056 No Longer A ctive Checo Conklin MD Active BUPROPION HCL ER (SR) 100 MG ORAL TABLET EXTENDED RELE ASE 12 HOUR take one tablet by mouth one time daily for one week then take 1 two times daily BUPROPION HCL 59079275293 No Longer Active Checo gallagher MD Active TERBINAFINE HCL 250 MG ORAL TABLET take one table PO one time da moises TERBINAFINE HCL 77736447395 No Longer Active Checo Conklin MD Active METOCLOPRAMIDE HCL 10 MG ORAL TABLET take one PO tid PRN nausea METOCLOPRAMIDE HCL 34126958764 No Longer Active Checo Conklin MD Active DICLOFENAC SODIUM 75 MG ORAL TABLET DELAYED RELEASE 1 tablet by mouth twice daily PRN Knee pain DICLOFENAC SODIUM 01543958817 No Longer Active Checo Conklin MD Active LAMISIL 250 MG ORAL TABLET 1 po qd TERBINAFI NE HCL 70241558713 No Longer Active Checo Conklin MD Active REGLAN 10 MG ORAL TABLET 1 po TID PRN Nausea 3 METOCLOPRAMIDE HCL 78779340073 No Longer Active Checo Conklin MD Active CELEXA 20 MG ORAL TABLET 1 tablet by mouth daily 09/26 CITALOPRAM HYDROBROMIDE 68659351012 No Longer Active Checo Conklin MD Active AZITHROMYCIN 250 MG ORAL TABLET 2 po qd x 1 day, then 1 po q d x 4 days AZITHROMYCIN 09149356653 No Longer Active Checo Ortiz MD Active HYDROCODONE-ACETAMINOPHEN 5-325 MG ORAL TABLET 1 po q 6hr PRN Pa in HYDROCODONE-ACETAMINOPHEN 90880760164 No Longer Active Lenora Conklin MD Active PHENAZOPYRIDINE HCL 200 MG ORAL TABLET take 1 tab po TID for bladder pain PHENAZOPYRIDINE HCL 64968812687 No Longer Active Joe Conklin MD Active CIPRO 500 MG ORAL TABLET 1 tablet by mouth twice daily CIPROFLOXACIN HCL 97677667167 No Longer Active Dangelo Rangel MD Active HYDROCODONE-ACETAMINOPHEN 5-325 MG ORAL TABLET 1/2 to 1 po q 4 hours prn cough HYDROCODONE-ACETAMINOPHEN 32403417246 No Longer Activ e Dangelo Rangel MD Active BACTRIM DS 800-160 MG ORAL TABLET 1 po BID x 7 days 29/04/10 SULFAMETHOXAZOLE-TRIMETHOPRIM 58828077479 No Longer Active Checo Conklin MD Active PREDNISONE 20 MG ORAL TABLET 2 tabs daily for 3 days, 1 tab daily for 3 days, 1/2 tab daily for 2 days PREDNISONE 55443499512 No Longer Active Checo Conklin MD Active TRIAMCINOLONE ACETONIDE 0.1 % EXTERNAL OINTMENT Apply to affected areas TID for up to 2 weeks TRIAMCINOLONE ACETONIDE 92216260845 No Longer Active Checo Conklin MD Active CEFDINIR 300 MG ORAL CAPSULE by mouth twice a day 2013 CEFDINIR 63247863280 No Longer Active Dangelo Rangel MD Acti ve BUPROPION HCL ER (SMOKING DET) 150 MG ORAL TABLET EXTE NDED RELEASE 12 HOUR 1 a day for 1 week then 1 twice a day BUPROPION HCL (SMOKING DETER) 35038779877 No Longer Active Checo Conklin MD Active SIMVASTATIN 20 MG ORAL TABLET 1 po qd SIMVASTAT IN 87136560934 Active Checo Conklin MD Active CHANTIX STARTING MONTH KARTHIK 0.5 MG X 11 & 1 MG X 42 ORA L TABLET 0.5mg daily for 3 days, then 0.5mg BID for 4 days, then 1mg BID VARENICLINE TARTRATE 03483773798 No Longer Active Checo Conklin MD Activ e XANAX 0.5 MG ORAL TABLET 1 po BID PRN anxiety A LPRAZOLAM 67092229817 Active Checo Conklin MD Active CONCERTA 18 MG ORAL TABLET EXTENDED RELEASE 1 po q a.m. METHYLPHENIDATE HCL 85026914966 No Longer Active Checo Conklin MD Active AMBIEN 5 MG ORAL TABLET 1 po qHS PRN Insomnia Z OLPIDEM TARTRATE 82374259382 Active Checo Conklin MD Active TRAZODONE HCL 100 MG ORAL TABLET 0.5 to 1 po qHS PRN Insomnia 20 30/07/08 TRAZODONE HCL 92023630530 No Longer Active Checo Conklin MD Active FIORICET 325-50-40 MG TAB 1 tablet by mouth four times daily as needed [id number] 75832462314 No Longer Active Checo Conklin MD Active PHENERGAN CREAM* 25mg applied to wrist q6hr PRN Nausea PHENERGAN CREAM* No Longer Active Checo Conklin MD A ctive FLONASE 50 MCG/ACT NASAL SUSPENSION 1 spray each nostril am and hs FLUTICASONE PROPIONATE 55591066180 No Longer Active Checo Conklin MD Active ANTIPYRINE-BENZOCAINE 5.4-1.4 % OTIC SOLUTION 1-2 drops in affec yohannes ear BENZOCAINE-ANTIPYRINE 43091954305 No Longer Active Checo Conklin MD Active CEFDINIR 300 MG ORAL CAPSULE 1 po bid CEFDINIR 75798572328 No Longer Active Checo Conklin MD Active PREDNISONE 20 MG ORAL TABLET 2 tabs daily for 3 days, 1 tab daily for 3 days, 1/2 tab daily for 2 days PREDNISONE 50537932300 No Longer Active Checo Conklin MD Active AZITHROMYCIN 250 MG ORAL TABLET 2 po qd x 1 day, then 1 po q d x 4 days AZITHROMYCIN 39738776173 No Longer Active Checo Ortiz MD Active PREDNISONE 20 MG ORAL TABLET 2 tabs daily for 3 days, 1 tab daily for 3 days, 1/2 tab daily for 2 days PREDNISONE 56280177693 No Longer Active Checo Conklin MD Active ZITHROMAX Z-KARTHIK 250 MG ORAL TABLET 2 today, then 1 daily for 4 d ays AZITHROMYCIN 38622331178 No Longer Active Paul Hamlin MD Active FOCALIN XR 10 MG ORAL CAPSULE EXTENDED RELEASE 24 HOUR 1 po q a. m. DEXMETHYLPHENIDATE HCL 19638594417 No Longer Active Paul Hamlin MD Active PERCOCET 10-325 MG ORAL TABLET 1 tablet every 6 hours as needed for pain OXYCODONE-ACETAMINOPHEN 24997492963 No Longer Active Paul Hamlin MD Active LORTAB 5-500 MG ORAL TABLET 1/2 to 1 tablet by mouth e very 4 hours as needed for pain HYDROCODONE-ACETAMINOPHEN 09010001110 No Longer Active Checo Conklin MD Active FOCALIN XR 15 MG ORAL CAPSULE EXTENDED RELEASE 24 HOUR 1 po q a. m. DEXMETHYLPHENIDATE HCL 20530433522 No Longer Active Checo Conklin MD Active ZOFRAN ODT 4 MG ORAL TABLET DISINTEGRATING 1 po q6hr PRN Nausea ONDANSETRON 33838237478 No Longer Active Checo Conklin MD Active PERCOCET 5-325 MG ORAL TABLET 1 tablet by mouth every 6 hour s as needed OXYCODONE-ACETAMINOPHEN 62583905731 No Longer Active Checo Conklin MD Active PYRIDIUM 200 MG ORAL TABLET take 1 tab po TID prn urinary pain. PHENAZOPYRIDINE HCL 74113721170 No Longer Active Checo Joshua Active FLUCONAZOLE 150 MG ORAL TABLET take 1 tab po qday once FLUCONAZOLE 93565646497 No Longer Active Dangelo Rangel MD Acti ve CIPRO 500 MG ORAL TABLET 1 tablet by mouth twice daily CIPROFLOXACIN HCL 01981957758 No Longer Active Dangelo Rangel MD Active PYRIDIUM 200 MG ORAL TABLET take 1 tab po TID prn urinary pain. PYRIDIUM 200 MG ORAL TABLET 6911483 PHENAZOPYRIDINE HCL Inactive PERCOCET 5-325 MG ORAL TABLET 1 tablet by mouth every 6 hour s as needed PERCOCET 5-325 MG ORAL TABLET 9409570 OXYCODONE-ACETAMINOPHEN Inactive ZOFRAN ODT 4 MG ORAL TABLET DISINTEGRATING 1 po q6hr PRN Nausea ZOFRAN ODT 4 MG ORAL TABLET DISINTEGRATING 190943 ONDAN SETRON Inactive FOCALIN XR 15 MG ORAL CAPSULE EXTENDED RELEASE 24 HOUR 1 po q a. m. FOCALIN XR 15 MG ORAL CAPSULE EXTENDED RELEASE 24 HOUR DEXMETHYLPHENIDATE HCL Inactive LORTAB 5-500 MG ORAL TABLET 1/2 to 1 tablet by mouth e very 4 hours as needed for pain LORTAB 5-500 MG ORAL TABLET 671859 HYDROCODONE-ACETAMINOPHEN Inactive PERCOCET 10-325 MG ORAL TABLET 1 tablet every 6 hours as needed for pain PERCOCET 10-325 MG ORAL TABLET 4410490 OXYCODONE-ACETAMI NOPHEN Inactive FOCALIN XR 10 MG ORAL CAPSULE EXTENDED RELEASE 24 HOUR 1 po q a. m. FOCALIN XR 10 MG ORAL CAPSULE EXTENDED RELEASE 24 HOUR DEXMETHYLPHENIDATE HCL Inactive CEFDINIR 300 MG ORAL CAPSULE 1 po bid CEFDINI R 300 MG ORAL CAPSULE 822733 CEFDINIR Inactive ANTIPYRINE-BENZOCAINE 5.4-1.4 % OTIC SOLUTION 1-2 drops in affec yhoannes ear ANTIPYRINE-BENZOCAINE 5.4-1.4 % OTIC SOLUTION 648626 BENZOCAINE-ANTIPYRINE Inactive FLONASE 50 MCG/ACT NASAL SUSPENSION 1 spray each nostril am and hs FLONASE 50 MCG/ACT NASAL SUSPENSION 5626773 FLUTICASONE PROPIONATE I nactive PHENERGAN CREAM* 25mg applied to wrist q6hr PRN Nausea PHENERGAN CREAM* Inactive FIORICET 325-50-40 MG TAB 1 tablet by mouth four times daily as needed FIORICET 325-50-40 MG TAB ACETAMINOPHEN-C AFF-BUTALBITAL Inactive TRAZODONE HCL 100 MG ORAL TABLET 0.5 to 1 po qHS PRN Insomnia 20 30/07/08 TRAZODONE HCL 100 MG ORAL TABLET 248587 TRAZODONE HCL Inactive CONCERTA 18 MG ORAL [...] cough HYDROCODONE-ACETAMINOPHEN 5-325 MG ORAL TABLET 8 57556 HYDROCODONE-ACETAMINOPHEN Inactive PHENAZOPYRIDINE HCL 200 MG ORAL TABLET take 1 tab po TID for bladder pain PHENAZOPYRIDINE HCL 200 MG ORAL TABLET 2296163 PHENAZOPYRIDINE HCL Inactive HYDROCODONE-ACETAMINOPHEN 5-325 MG ORAL TABLET 1 po q 6hr PRN Pa in HYDROCODONE-ACETAMINOPHEN 5-325 MG ORAL TABLET 460099 HYDROCODONE-ACETAMINOPHEN Inactive CELEXA 20 MG ORAL TABLET 1 tablet by mouth daily 09/26 CELEXA 20 MG ORAL TABLET 615388 CITALOPRAM HYDROBROMIDE Inactive REGLAN 10 MG ORAL TABLET 1 po TID PRN Nausea 3 REGLAN 10 MG ORAL TABLET 620129 METOCLOPRAMIDE HCL Inactive LAMISIL 250 MG ORAL TABLET 1 po qd L AMISIL 250 MG ORAL TABLET 752452 TERBINAFINE HCL Inactive DICLOFENAC SODIUM 75 MG ORAL TABLET DELAYED RELEASE 1 tablet by mouth twice daily PRN Knee pain DICLOFENAC SODIUM 75 MG ORAL TABLET DELAYED RELEASE 209509 DICLOFENAC SODIUM Inactive METOCLOPRAMIDE HCL 10 MG ORAL TABLET take one PO tid PRN nausea METOCLOPRAMIDE HCL 10 MG ORAL TABLET 838795 METOCLOPRAM ZACH HCL Inactive TERBINAFINE HCL 250 MG ORAL TABLET take one table PO one time da moises TERBINAFINE HCL 250 MG ORAL TABLET 731935 TERBINAFINE H CL Inactive BUPROPION HCL ER [...] SICKNESS 25 M G ORAL TABLET CHEWABLE 503114 MECLIZINE HCL Inactive SUMATRIPTAN SUCCINATE 100 MG ORAL TABLET Take one PRN for migran e SUMATRIPTAN SUCCINATE 100 MG ORAL TABLET 362701 SUMATRIPTAN SUCCINATE Inactive COMPRO 25 MG RECTAL SUPPOSITORY insert or apply one garza ppository rectally as directed every 12 hours as needed for nausea COMPRO 25 MG RECTAL SUPPOSITORY 045275 PROCHLORPERAZINE Inactive ONDANSETRON 8 MG ORAL TABLET DISINTEGRATING place one tablet on tongue and allow to dissolve every 6 hours as needed for vomitting ONDANSETRON 8 MG ORAL TABLET DISINTEGRATING 524220 ONDANSETRON Inactive HYDROCODONE-ACETAMINOPHEN 5-325 MG ORAL TABLET 0.5 to 1 tab by mouth every 6 hours as needed HYDROCODONE-ACETAMIN OPHEN 5-325 MG ORAL TABLET 240660 HYDROCODONE-ACETAMINOPHEN Inactive BACTRIM DS 800-160 MG ORAL TABLET 1 tab by mouth twice daily 201 11/23/03 BACTRIM DS 800-160 MG ORAL TABLET 580583 TRIMETHOPRIM-SULFAMETHOXAZOLE Inactive DIFLUCAN 150 MG ORAL TABLET [...] as needed HYDROCODONE-ACETAMINOPHEN 5-325 MG ORAL TABLET 980155 HYDROCODONE-ACETAMINOPHEN Inactive BACTROBAN 2 % EXTERNAL CREAM Apply to affected area BID for up to 10 days BACTROBAN 2 % EXTERNAL CREAM 820752 MUPIROCIN CA LCIUM Inactive MAGNESIUM CITRATE 1.745 GM/30ML ORAL SOLUTION 150ml po BID P RN Constipation MAGNESIUM CITRATE 1.745 GM/30ML ORAL SOLUTION 10 92607 MAGNESIUM CITRATE Inactive DIFLUCAN 150 MG ORAL TABLET 1 tablet by mouth qod 2015 DIFLUCAN 150 MG ORAL TABLET 986442 FLUCONAZOLE Inactive BACTRIM DS 800-160 MG ORAL TABLET 1 tab by mouth twice daily 201 12/19/26 BACTRIM DS 800-160 MG ORAL TABLET 430434 TRIMETHOPRIM-SULFAMETHOXAZOLE Inactive CLARITIN 10 MG ORAL TABLET 1 tablet by mouth daily as needed for allergies CLARITIN 10 MG ORAL TABLET 067227 LORATADINE I nactive FLUTICASONE PROPIONATE 50 MCG/ACT NASAL SUSPENSION 2 s prays/nostril qd PRN Congestion/Allergies FLUTICASONE PROPION ATE 50 MCG/ACT NASAL SUSPENSION 0994972 FLUTICASONE PROPIONATE Inactive MIRALAX ORAL POWDER 8.5 to 17g po qd PRN Constipation MIRALAX ORAL POWDER 730016 POLYETHYLENE GLYCOL 3350 Inactive CIPRO 500 MG ORAL TABLET 1 tablet by mouth twice daily CIPRO 500 MG ORAL TABLET 442460 CIPROFLOXACIN HCL Inactive FLUCONAZOLE 150 MG ORAL TABLET take 1 tab po qday once FLUCONAZOLE 150 MG ORAL TABLET 795508 FLUCONAZOLE Inactive ZITHROMAX Z-KARTHIK 250 MG ORAL TABLET 2 today, then 1 daily for 4 d ays ZITHROMAX Z-KARTHIK 250 MG ORAL TABLET 321075 AZITHROMYCIN Inactive PREDNISONE 20 MG ORAL TABLET 2 tabs daily for 3 days, 1 tab daily for 3 days, 1/2 tab daily for 2 days PREDNISONE 20 MG ORAL T ABLET 645352 PREDNISONE Inactive AZITHROMYCIN 250 MG ORAL TABLET 2 po qd x 1 day, then 1 po q d x 4 days AZITHROMYCIN 250 MG ORAL TABLET 263388 AZITHROMY SPARKLE Inactive PREDNISONE 20 MG ORAL TABLET 2 tabs daily for 3 days, 1 tab daily for 3 days, 1/2 tab daily for 2 days PREDNISONE 20 MG ORAL TABLET 349120 PREDNISONE Inactive CEFDINIR 300 MG ORAL CAPSULE by mouth twice a day 2013 CEFDINIR 300 MG ORAL CAPSULE 321494 CEFDINIR Inactive TRIAMCINOLONE ACETONIDE 0.1 % EXTERNAL OINTMENT Apply to affected areas TID for up to 2 weeks TRIAMCINOLONE ACETON ZACH 0.1 % EXTERNAL OINTMENT 6478677 TRIAMCINOLONE ACETONIDE Inactive PREDNISONE 20 MG ORAL TABLET 2 tabs daily for 3 days, 1 tab daily for 3 days, 1/2 tab daily for 2 days PREDNISONE 20 MG ORAL T ABLET 513310 PREDNISONE Inactive BACTRIM DS 800-160 MG ORAL TABLET 1 po BID x 7 days 29/04/10 BACTRIM DS 800-160 MG ORAL TABLET 916130 SULFAMETHOXAZOLE-TRIMETHOP RIM Inactive CIPRO 500 MG ORAL TABLET 1 tablet by mouth twice daily CIPRO 500 MG ORAL TABLET 877430 CIPROFLOXACIN HCL Inactive AZITHROMYCIN 250 MG ORAL TABLET 2 po qd x 1 day, then 1 po q d x 4 days AZITHROMYCIN 250 MG ORAL TABLET 031676 AZITHROMY SPARKLE Inactive FLAGYL 500 MG ORAL TABLET 1 tablet by mouth bid 04/13 FLAGYL 500 MG ORAL TABLET 512752 METRONIDAZOLE Inactive AZITHROMYCIN 250 MG ORAL TABLET 2 po qd x 1 day, then 1 po q d x 4 days AZITHROMYCIN 250 MG ORAL TABLET 025170 AZITHROMY SPARKLE Inactive AMOXICILLIN 500 MG ORAL CAPSULE 2 po BID x 10 days 201 01/15/27 AMOXICILLIN 500 MG ORAL CAPSULE 898446 AMOXICILLIN Inactive AMOXICILLIN 500 MG ORAL CAPSULE 2 po BID x 14 days for H. Pylori AMOXICILLIN 500 MG ORAL CAPSULE 156381 AMOXICILLIN Inactive CLARITHROMYCIN 500 MG ORAL TABLET 1 tab po BID x 14 days CLARITHROMYCIN 500 MG ORAL TABLET 328504 CLARITHROMYCIN Inacti ve FLAGYL 500 MG ORAL TABLET 1 tablet by mouth bid 08/29 FLAGYL 500 MG ORAL TABLET 524306 METRONIDAZOLE Inactive PROTONIX 40 MG ORAL TABLET DELAYED RELEASE 1 pill by m outh daily, for acid reflux PROTONIX 40 MG ORAL TABLET DELAYED RELEAS E 180510 PANTOPRAZOLE SODIUM Inactive Immunizations Vaccine Administration Date [...] ... - Chemistry sodium, serum 139 mmol/L 550-692 0244/11/28 carbon dioxide, venous blood 26.0 mmol/L 21.0-32 [...] 5.0-8.5 Encounters Code Encounter Date Provider Facility CPT-95254 Level 4 Est. Patient 08:57:51 MEDICAL RECEPTION Checo Conklin MD [facility] CPT-23985 Level 3 Est. Patient 11:24:55 MEDICAL RECEPTION Efren almendarez APRN [facility] CPT-45963 Level 3 Est. Patient 13:05:44 CDT Paul Hamlin MD [facility] CPT-28587 Level 3 Est. Patient 11:29:55 CDT Checo Conklin MD [facility] CPT-26992 Level 4 Est. Patient 11:08:12 MEDICAL RECEPTION Checo Conklin MD [facility] CPT-55931 Level 4 Est. Patient 16:06:48 MEDICAL RECEPTION Checo Conklin MD [facility] CPT-03642 Level 3 Est. Patient 09:11:49 CDT Efren almendarez [facility] CPT-01661 Level 2 Est. Patient 19:53:27 CDT Tanner hill MD [facility] CPT-73153 Level 3 Est. Patient 09:15:34 CDT Efren almendarez [facility] CPT-58817 Level 3 Est. Patient 11:28:51 MEDICAL RECEPTION Efren almendarez [facility] CPT-18862 Level 4 Est. Patient 13:55:46 MEDICAL RECEPTION Checo Conklin MD [facility] CPT-79889 Level 4 Est. Patient 17:10:53 CDT Checo Conklin MD [facility] CPT-00636 Level 3 Est. Patient 15:56:22 CDT Checo Conklin MD [facility] CPT-80633 Level 3 Est. Patient 15:29:07 CDT Checo Conklin MD [facility] CPT-18821 Level 3 Est. Patient 14:38:41 CDT Checo Conklin MD [facility] CPT-56866 Level 3 Est. Patient 15:22:03 MEDICAL RECEPTION Thomas reynolds DO [facility] CPT-11805 Level 3 Est. Patient 13:34:17 MEDICAL RECEPTION Checo Conklin MD [facility] CPT-97743 Level 3 Est. Patient 12:29:32 CDT Dangelo arroyo MD [facility] CPT-80928 Level 3 Est. Patient 16:53:02 CDT Checo Conklin MD [facility] CPT-83474 Level 3 Est. Patient 16:37:13 CDT Checo Conklin MD [facility] CPT-37947 Level 3 Est. Patient 16:16:59 CDT Paul Hamlin MD [facility] CPT-31048 Level 3 Est. Patient 14:20:13 CDT Dangelo arroyo MD [facility] CPT-34473 Level 4 Est. Patient 11:29:33 CDT Checo Conkiln MD [facility] CPT-75357 Level 3 Est. Patient 17:08:31 CDT Checo Conklin MD [facility] CPT-79601 Level 3 Est. Patient 16:50:42 MEDICAL RECEPTION Checo Conklin MD [facility] CPT-61460 Level 4 Est. Patient 09:26:08 MEDICAL RECEPTION Checo Conklin MD [facility] CPT-12928 Level 3 Est. Patient 11:37:10 CDT Checo Conklin MD [facility] CPT-26465 Level 4 Est. Patient 14:07:38 CDT Checo Conklin MD [facility] CPT-43123 Level 3 Est. Patient 09:54:41 CDT Checo Conklin MD [facility] CPT-53392 Level 3 Est. Patient 11:10:54 CDT Paul Hamlin MD [facility] CPT-21473 Level 3 Est. Patient 14:16:56 MEDICAL RECEPTION Checo Conklin MD [facility] CPT-25076 Level 3 Est. Patient 11:04:11 MEDICAL RECEPTION Checo Conklin MD [facility] CPT-17140 Level 3 Est. Patient 17:09:26 CDT Dangelo arroyo MD [facility] CPT-72193 Level 3 Est. Patient 16:54:37 CDT Checo Conklin MD [facility] Procedures Code Procedure Name Date Entry Date Standard Desc ription CPT-30260 Abd compl w upright - XRAY USE ONLY 1 1:36:54 MEDICAL RECEPTION CPT-69874 UA w micro - LAB USE ONLY 17:06:46 CDT 2015 CPT-67857 BHCG Qual - LAB USE ONLY 17:06:46 CDT 05/06 CPT-76904 CMP - LAB USE ONLY 17:06:46 CDT CPT-68007 CBC with Diff - LAB USE ONLY 17:06:45 CDT 2 CPT-51307 Venipuncture Draw Fee 17:06:45 CDT CPT-LR Lesion Removal 19:53:27 CDT CPT-OV Office Visit 11:31:28 CDT CPT-11032 Tubersol 09:39:29 CDT CPT-J2550 Phenergan 25 mg (Promethazine) 13:59:02 MEDICAL RECEPTION CPT-J1885 Toradol 60 mg (Ketorolac) 13:59:02 MEDICAL RECEPTION 2012
--- OUTSIDE RECORDS SUMMARY | 2019-09-29 02:11 | XMS REPORT | Clinical Summary ---
Author Author Admin, Bethany Ayala [facility] Address Unknown Phone Unavailable Allergies, Adverse Reactions, Alerts Allergy Name Reaction Description Start Date Severity Status Pr ovider CODEINE in other meds is okay to take, not by its self Mild Active Thmoas Marks DO Conditions or Problems Problem Name [...] ABDOMINAL PAIN RIGHT LOWER QUADRANT 789.03 Resolved hCeco Conklin MD Abdominal pain, right lower quadrant [...] vulvovaginitis, unspecified Pharyngitis 462 Active Jillina Frazell LUMBER MOVER Acute pharyngitis Cough 786.2 Active Jillina Frazell LUMBER MOVER Cough Pedal edema 782.3 Active Jillina Frazell LUMBER MOVER 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 Tanner Carrillo MD Neoplasm of uncertain behavior of skin Abdominal pain, generalized 789.07 Active Jillina Frazell LUMBER MOVER Abdominal pain, generalized Urinary frequency 788.41 Active Jillina Frazell LUMBER MOVER Urinary frequency BREAST CANCER ICD-V16.3 Inactive Checo [...] tab by mouth twice daily 2 TRIMETHOPRIM-SULFAMETHOXAZOLE 55635475854 No Longer Active Tanner Carrillo MD Active DIFLUCAN 150 MG TAB 1 tablet by mouth qod FLUCO NAZOLE 65166982198 No Longer Active Efren Medel APRN Active CLARITIN 10 MG TAB 1 tablet by mouth daily as needed for allergies LORATADINE 44481768131 Active Americollmanuela Medel LUMBER MOVER Active AZITHROMYCIN 250 MG TABS 2 po qd x 1 day, then 1 po qd x 4 days AZITHROMYCIN 51811299285 No Longer Active Jillmanuela Medel APRN Active FLAGYL 500 MG TAB 1 tablet by mouth bid METRONI DAZOLE 01476731032 No Longer Active Checo Conklin MD Active FOCALIN XR 10 MG ORAL [id number] 1 po q a.m. DEX METHYLPHENIDATE HCL 27561182909 Active Checo Conklin MD Active MAGNESIUM CITRATE 1.745 GM/30ML ORAL SOLN 150ml po BID PRN C onstipation MAGNESIUM CITRATE 58372859556 No Longer Active Checo Conklin MD Active BACTROBAN 2 % CREAM Apply to affected area BID for up to 10 days MUPIROCIN CALCIUM 79167423365 No Longer Active Checo Conklin MD Active HYDROCODONE-ACETAMINOPHEN 5-325 MG TABS 1 tab by mouth every 6 hours as needed HYDROCODONE-ACETAMINOPHEN 33587941894 No Longer Activ e Checo Conklin MD Active IBUPROFEN 800 MG TABS 1 tab every 8 hours with food 20 31/03/21 IBUPROFEN 51256580269 No Longer Active Checo Conklin MD Activ e DIFLUCAN 150 MG TAB 1 tablet by mouth if needed, hold until symptoms start FLUCONAZOLE 28018763909 No Longer Active Checo Ortiz MD Active BACTRIM DS 800-160 MG TAB 1 tab by mouth twice daily 2 TRIMETHOPRIM-SULFAMETHOXAZOLE 97950042700 No Longer Active Corry leong LPN Active MIRALAX PACK 1 po qd PRN Constipation POLYETHYL JOEL GLYCOL 3350 17156027859 Active Checo Conklin MD Active HYDROCODONE-ACETAMINOPHEN 5-325 MG TABS 0.5 to 1 tab b y mouth every 6 hours as needed HYDROCODONE-ACETAMINOPHEN 97061880800 No Longer Active Checo Conklin MD Active ONDANSETRON [address] one tablet on tongue and allow to dissolve every 6 hours as needed for vomitting ONDANSETRO N 84742157268 No Longer Active Checo Conklin MD Active COMPRO 25 MG RECTAL SUPP insert or apply one supposit ory rectally as directed every 12 hours as needed for nausea PROCHLORPERA ZINE 61638592679 No Longer Active Checo Conklin MD Active SUMATRIPTAN SUCCINATE 100 MG ORAL TABS Take one PRN for migrane SUMATRIPTAN SUCCINATE 34810526192 No Longer Active Checo Conklin MD Active TRAVEL SICKNESS 25 MG ORAL CHEW chew and swallow one t ablet every 6 hours as needed MECLIZINE HCL 36629711054 No Longer Active Joe Conklin MD Active BUPROPION HCL ER (SR) 100 MG ORAL [id number] take one t ablet by mouth one time daily for one week then take 1 two times daily BUPROPION HCL 55508844647 No Longer Active Checo oCnklin MD Activ e TERBINAFINE HCL 250 MG ORAL TABS take one table PO one time abran y TERBINAFINE HCL 20905703001 No Longer Active Checo Conklin MD Active METOCLOPRAMIDE HCL 10 MG ORAL TABS take one PO tid PRN nausea 20 29/12/14 METOCLOPRAMIDE HCL 66621943420 No Longer Active Checo Conklin MD Active DICLOFENAC SODIUM 75 MG TBEC 1 tablet by mouth twice daily P RN Knee pain DICLOFENAC SODIUM 10103128206 No Longer Active Checo Conklin MD Active LAMISIL 250 MG TAB 1 po qd TERBINAFINE HCL 548 00385935 No Longer Active Checo Conklin MD Active REGLAN 10 MG TAB 1 po TID PRN Nausea METOCLOPRA MIDE HCL 53055000711 No Longer Active Checo Conklin MD Active CELEXA 20 MG TABS 1 tablet by mouth daily CITALOPRAM HYDROBROMIDE 75541334418 No Longer Active Checo Conklin MD Activ e AZITHROMYCIN 250 MG TABS 2 po qd x 1 day, then 1 po qd x 4 days AZITHROMYCIN 55906082892 No Longer Active Checo Conklin MD Active HYDROCODONE-ACETAMINOPHEN 5-325 MG TABS 1 po q 6hr PRN Pain 2013 HYDROCODONE-ACETAMINOPHEN 35351730790 No Longer Active Lenora Conklin MD Active PHENAZOPYRIDINE HCL 200 MG TABS take 1 tab po TID for bladder pa in PHENAZOPYRIDINE HCL 51775779201 No Longer Active Checo Joshua Active CIPRO 500 MG TAB 1 tablet by mouth twice daily CIPROFLOXACIN HCL 02985134199 No Longer Active Dangelo Rangel MD Active HYDROCODONE-ACETAMINOPHEN 5-325 MG TABS 1/2 to 1 po q 4 hour s prn cough HYDROCODONE-ACETAMINOPHEN 77666930709 No Longer Activ e Dangelo Rangel MD Active BACTRIM DS 800-160 MG TABS 1 po BID x 7 days 0 SULFAMETHOXAZOLE-TRIMETHOPRIM 62009501989 No Longer Active Checo Conklin MD Active PREDNISONE 20 MG TAB 2 tabs daily for 3 days, 1 t ab daily for 3 days, 1/2 tab daily for 2 days PREDNISONE 53482350150 No Longer Active Checo Conklin MD Active TRIAMCINOLONE ACETONIDE 0.1 % OINT Apply to affected a reas TID for up to 2 weeks TRIAMCINOLONE ACETONIDE 45950377507 No Longer A ctive Checo Conklin MD Active CEFDINIR 300 MG CAPS by mouth twice a day CEFDI JAZZY 95560648768 No Longer Active Dangelo Rangel MD Active BUPROPION HCL (SMOKING DETER) 150 MG [id number] 1 a day for 1 week then 1 twice a day BUPROPION HCL (SMOKING DETER) 15443483454 No Lo nger Active Checo Conklin MD Active SIMVASTATIN 20 MG TABS 1 po qd SIMVASTATIN 9247609019 5 Active Checo Conklin MD Active CHANTIX STARTING MONTH KARTHIK 0.5 MG X 11 & 1 MG X 42 TAB S 0.5mg daily for 3 days, then 0.5mg BID for 4 days, then 1mg BID VARENICLINE TARTRATE 71599568536 No Longer Active Checo Conklin MD Activ e XANAX 0.5 MG TABS 1 po BID PRN anxiety ALPRAZOLAM 41478464300 Active Checo Conklin MD Active CONCERTA 18 MG CR-TABS 1 po q a.m. METHYLPHENID ATE HCL 70168549064 No Longer Active Checo Conklin MD Active AMBIEN 5 MG TAB 1 po qHS PRN Insomnia ZOLPIDEM TARTRATE 52200259539 Active Checo Conklin MD Active TRAZODONE HCL 100 MG TAB 0.5 to 1 po qHS PRN Insomnia TRAZODONE HCL 38450650592 No Longer Active Checo Conklin MD Acti ve FIORICET 325-50-40 MG TAB 1 tablet by mouth four times daily as needed [id number] 37113255964 No Longer Active Checo Conklin MD Active PHENERGAN CREAM* 25mg applied to wrist q6hr PRN Nausea PHENERGAN CREAM* No Longer Active Checo Conklin MD A ctive FLONASE 50 MCG/ACT SUSP 1 spray each nostril am and hs FLUTICASONE PROPIONATE 23067293397 No Longer Active Checo Simms e ANTIPYRINE-BENZOCAINE 5.4-1.4 % SOLN 1-2 drops in affected ear BENZOCAINE-ANTIPYRINE 27009915247 No Longer Active Checo Conklin MD Active CEFDINIR 300 MG CAPS 1 po bid CEFDINIR 82228865 120 No Longer Active Checo Conklin MD Active PREDNISONE 20 MG TAB 2 tabs daily for 3 days, 1 t ab daily for 3 days, 1/2 tab daily for 2 days PREDNISONE 50855422290 No Longer Active Aracelis Conklin MD Active AZITHROMYCIN 250 MG TABS 2 po qd x 1 day, then 1 po qd x 4 days AZITHROMYCIN 25811086191 No Longer Active Checo Conklin MD Active PREDNISONE 20 MG TAB 2 tabs daily for 3 days, 1 t ab daily for 3 days, 1/2 tab daily for 2 days PREDNISONE 37339565658 No Longer Active Checo Conklin MD Active ZITHROMAX Z-KARTHIK 250 MG TABS 2 today, then 1 daily for 4 days 201 09/18/28 AZITHROMYCIN 35621333690 No Longer Active Paul Hamlin MD Active FOCALIN XR 10 MG [id number] 1 po q a.m. D EXMETHYLPHENIDATE HCL 23566073360 No Longer Active Paul Hamlin MD Activ e PERCOCET 10-325 MG TABS 1 tablet every 6 hours as needed for pain OXYCODONE-ACETAMINOPHEN 03281529454 No Longer Active Paul Hamlin MD Active LORTAB 5 5-500 MG TABS 1/2 to 1 tablet by mouth flaquito ry 4 hours as needed for pain HYDROCODONE-ACETAMINOPHEN 55998817103 No Longer Active Checo Conklin MD Active FOCALIN XR 15 MG [id number] 1 po q a.m. D EXMETHYLPHENIDATE HCL 45606435446 No Longer Active Checo Conklin MD Activ e ZOFRAN ODT 4 MG TBDP 1 po q6hr PRN Nausea ONDAN SETRON 23728399532 No Longer Active Checo Conklin MD Active PERCOCET 5-325 MG TABS 1 tablet by mouth every 6 hours as needed OXYCODONE-ACETAMINOPHEN 53436540595 No Longer Active Checo Conklin MD Active PYRIDIUM 200 MG TABS take 1 tab po TID prn urinary pain. 0 PHENAZOPYRIDINE HCL 93552804548 No Longer Active Checo Conklin MD Active FLUCONAZOLE 150 MG TABS take 1 tab po qday once 04/06 FLUCONAZOLE 94164951409 No Longer Active Dangelo Rangel MD Acti ve CIPRO 500 MG TAB 1 tablet by mouth twice daily CIPROFLOXACIN HCL 66804553375 No Longer Active Dangelo Rangel MD Active PYRIDIUM 200 MG TABS take 1 tab po TID prn urinary pain. 0 PYRIDIUM 200 MG TABS 3700760 PHENAZOPYRIDINE HCL Inactive PERCOCET 5-325 MG TABS 1 tablet by mouth every 6 hours as needed PERCOCET 5-325 MG TABS 8660593 OXYCODONE-ACETAMINOPHEN I nactive ZOFRAN ODT 4 MG TBDP 1 po q6hr PRN Nausea ZOFRAN ODT 4 MG TBDP 976500 ONDANSETRON Inactive FOCALIN XR 15 MG [id number] 1 po q a.m. F OCALIN XR 15 MG [id number] DEXMETHYLPHENIDATE HCL Inactive LORTAB 5 5-500 MG TABS 1/2 to 1 tablet by mouth flaquito ry 4 hours as needed for pain LORTAB 5 5-500 MG TABS HYDROCODONE-A CETAMINOPHEN Inactive PERCOCET 10-325 MG TABS 1 tablet every 6 hours as needed for pain PERCOCET 10-325 MG TABS 3406107 OXYCODONE-ACETAMINOPHEN Inactive FOCALIN XR 10 MG [id number] 1 po q a.m. F OCALIN XR 10 MG [id number] DEXMETHYLPHENIDATE HCL Inactive CEFDINIR 300 MG CAPS 1 po bid CEFDINIR 300 MG CAPS 20 0346 CEFDINIR Inactive ANTIPYRINE-BENZOCAINE 5.4-1.4 % SOLN 1-2 drops in affected ear ANTIPYRINE-BENZOCAINE 5.4-1.4 % SOLN 154835 BENZOCAINE-ANTIPYRINE I nactive FLONASE 50 MCG/ACT SUSP [...] PRN Insomnia TRAZODONE HCL 100 MG TAB 976392 TRAZODONE HCL Inactive CONCERTA 18 MG CR-TABS [...] s prn cough HYDROCODONE-ACETAMINOPHEN 5-325 MG TABS 102549 HYDROCODONE-ACETAMINOPHEN Inactive PHENAZOPYRIDINE HCL 200 MG TABS take 1 tab po TID for bladder pa in PHENAZOPYRIDINE HCL 200 MG TABS 7652971 PHENAZOPYRIDINE HCL Inactive HYDROCODONE-ACETAMINOPHEN 5-325 MG TABS 1 po q 6hr PRN Pain 2013 HYDROCODONE-ACETAMINOPHEN 5-325 MG TABS 951089 HYDROCODONE-ACETAMINOPHEN Inactive CELEXA 20 MG TABS 1 tablet by mouth daily CELEXA 20 MG TABS 165707 CITALOPRAM HYDROBROMIDE Inactive REGLAN 10 MG TAB 1 po TID PRN Nausea REGLAN 10 MG TAB 748720 METOCLOPRAMIDE HCL Inactive LAMISIL 250 MG TAB 1 po qd LAMISIL 250 MG TAB 010494 TERBINAFINE HCL Inactive DICLOFENAC SODIUM 75 MG TBEC 1 tablet by mouth twice daily P RN Knee pain DICLOFENAC SODIUM 75 MG TBEC 891447 DICLOFENAC S ODIUM Inactive METOCLOPRAMIDE HCL 10 MG ORAL TABS take one PO tid PRN nausea 20 29/12/14 METOCLOPRAMIDE HCL 10 MG ORAL TABS 489350 METOCLOPRAMID E HCL Inactive TERBINAFINE HCL 250 MG ORAL TABS take one table PO one time abran y TERBINAFINE HCL 250 MG ORAL TABS 952534 TERBINAFINE HCL Inactive BUPROPION HCL ER (SR) 100 MG ORAL [id number] take one t ablet by mouth one time daily for one week then take 1 two times daily BUPROPION HCL ER (SR) 100 MG ORAL [id number] BUPROPION HCL Inacti ve TRAVEL SICKNESS 25 MG ORAL CHEW chew and swallow one t ablet every 6 hours as needed TRAVEL SICKNESS 25 MG ORAL CHEW 249093 MECLIZINE HCL Inactive SUMATRIPTAN SUCCINATE 100 MG ORAL TABS Take one PRN for migrane SUMATRIPTAN SUCCINATE 100 MG ORAL TABS 071783 SUMATRIPT AN SUCCINATE Inactive COMPRO 25 MG RECTAL SUPP insert or apply one supposit ory rectally as directed every 12 hours as needed for nausea COMP RO 25 MG RECTAL SUPP 344293 PROCHLORPERAZINE Inactive ONDANSETRON [address] one tablet on tongue and allow to dissolve every 6 hours as needed for vomitting ON DANSETRON 8 MG ORAL TBDP 030446 ONDANSETRON Inactive HYDROCODONE-ACETAMINOPHEN 5-325 MG TABS 0.5 to 1 tab b y mouth every 6 hours as needed HYDROCODONE-ACETAMINOPHEN 5-325 MG TABS 8 77924 HYDROCODONE-ACETAMINOPHEN Inactive BACTRIM DS 800-160 MG TAB 1 tab by mouth twice daily 2 BACTRIM DS 800-160 MG TAB 137450 TRIMETHOPRIM-SULFAMETHOXAZOLE Inac tive DIFLUCAN 150 MG TAB 1 tablet by mouth if needed, hold until symptoms start DIFLUCAN 150 MG TAB 069994 FLUCONAZOLE Inactive IBUPROFEN 800 MG TABS 1 tab every 8 hours with food 20 31/03/21 IBUPROFEN 800 MG TABS 794572 IBUPROFEN Inactive HYDROCODONE-ACETAMINOPHEN 5-325 MG TABS 1 tab by mouth every 6 hours as needed HYDROCODONE-ACETAMINOPHEN 5-325 MG TABS 901478 HYDROCODONE-ACETAMINOPHEN Inactive BACTROBAN 2 % CREAM Apply to affected area BID for up to 10 days BACTROBAN 2 % CREAM 200053 MUPIROCIN CALCIUM Inactive MAGNESIUM CITRATE 1.745 GM/30ML ORAL SOLN 150ml po BID PRN C onstipation MAGNESIUM CITRATE 1.745 GM/30ML ORAL SOLN 815901 0 MAGNESIUM CITRATE Inactive DIFLUCAN 150 MG TAB 1 tablet by mouth qod DIFLUCAN 150 MG TAB 399289 FLUCONAZOLE Inactive BACTRIM DS 800-160 MG TAB 1 tab by mouth twice daily 2 BACTRIM DS 800-160 MG TAB 242165 TRIMETHOPRIM-SULFAMETHOXAZOLE Inac tive CIPRO 500 MG TAB 1 tablet by mouth twice daily CIPRO 500 MG TAB 487830 CIPROFLOXACIN HCL Inactive FLUCONAZOLE 150 MG TABS take 1 tab po qday once 04/06 FLUCONAZOLE 150 MG TABS 19760325 FLUCONAZOLE Inactive ZITHROMAX Z-KARTHIK 250 MG TABS 2 today, then 1 daily for 4 days 201 09/18/28 ZITHROMAX Z-KARTHIK 250 MG TABS 1974485 AZITHROMYCIN Inac tive PREDNISONE 20 MG TAB 2 tabs daily for 3 days, 1 t ab daily for 3 days, 1/2 tab daily for 2 days PREDNISONE 20 MG TAB 024742 PREDNISON E Inactive AZITHROMYCIN 250 MG TABS 2 po qd x 1 day, then 1 po qd x 4 days AZITHROMYCIN 250 MG TABS 0412690 AZITHROMYCIN Inactiv e PREDNISONE 20 MG TAB 2 tabs daily for 3 days, 1 t ab daily for 3 days, 1/2 tab daily for 2 days PREDNISONE 20 MG TAB 691106 PREDNISON E Inactive CEFDINIR 300 MG CAPS by mouth twice a day CEFDINIR 300 MG CAPS 374747 CEFDINIR Inactive TRIAMCINOLONE ACETONIDE 0.1 % OINT Apply to affected a reas TID for up to 2 weeks TRIAMCINOLONE ACETONIDE 0.1 % OINT 097908 6 TRIAMCINOLONE ACETONIDE Inactive PREDNISONE 20 MG TAB 2 tabs daily for 3 days, 1 t ab daily for 3 days, 1/2 tab daily for 2 days PREDNISONE 20 MG TAB 608697 PREDNISON E Inactive BACTRIM DS 800-160 MG TABS 1 po BID x 7 days 0 BACTRIM DS 800-160 MG TABS 520363 SULFAMETHOXAZOLE-TRIMETHOPRIM Inactive CIPRO 500 MG TAB 1 tablet by mouth twice daily CIPRO 500 MG TAB 537548 CIPROFLOXACIN HCL Inactive AZITHROMYCIN 250 MG TABS 2 po qd x 1 day, then 1 po qd x 4 days AZITHROMYCIN 250 MG TABS 9840330 AZITHROMYCIN Inactiv e FLAGYL 500 MG TAB 1 tablet by mouth bid FLAGYL 500 MG TAB 795429 METRONIDAZOLE Inactive AZITHROMYCIN 250 MG TABS 2 po qd x 1 day, then 1 po qd x 4 days AZITHROMYCIN 250 MG TABS 7654708 AZITHROMYCIN Inactiv e Immunizations Vaccine Administration Date [...] ... - Chemistry sodium, serum 141 mmol/L 894-920 8991/01/26 carbon dioxide, venous blood 30.0 mmol/L 21.0-32 .0 potassium, serum 4.0 mmol/L 3.5-5.2 chloride, serum 105 mmol/L 98-107 blood glucose 85 mg/dL 65-110 urea nitrogen, blood 9 mg/dL 7-18 creatinine, serum 0.66 mg/dL 0.55-1.30 alanine aminotransferase (SGPT), serum 31 U/L 12-78 aspartate aminotransferase (SGOT), serum 21 U/L 15-37 calcium, serum 8.2 mg/dL 8.5-10.1 bilirubin, serum, total 1.10 mg/dL 0.00-1.00 cholesterol, serum 178 mg/dL 071-739 3185/01/26 triglyceride, serum, fasting 149 mg/dL 30-200 HDL [...] ... - Chemistry sodium, serum 137 mmol/L 142-606 0555/05/27 carbon dioxide, venous blood 29.1 mmol/L 21.0-32 [...] 5.0-8.5 Encounters Code Encounter Date Provider Facility CPT-45023 Level 3 Est. Patient 09:11:49 CDT Efren almendarez [facility] CPT-88784 Level 2 Est. Patient 19:53:27 CDT Tanner hill MD [facility]-43296 Level 3 Est. Patient 09:15:34 CDT Efren almendarez [facility] CPT-23839 Level 3 Est. Patient 11:28:51 DONKEY DOCTOR Efren almendarez [facility] CPT-61680 Level 4 Est. Patient 13:55:46 DONKEY DOCTOR Checo Conklin MD [facility] CPT-78906 Level 4 Est. Patient 17:10:53 CDT Checo Conklin MD [facility] CPT-44056 Level 3 Est. Patient 15:56:22 CDT Checo Conklin MD [facility] CPT-38862 Level 3 Est. Patient 15:29:07 CDT Checo Conklin MD [facility] CPT-51053 Level 3 Est. Patient 14:38:41 CDT Checo Conklin MD [facility] CPT-80189 Level 3 Est. Patient 15:22:03 DONKEY DOCTOR Thomas reynolds DO [facility] CPT-37126 Level 3 Est. Patient 13:34:17 DONKEY DOCTOR Checo Conklin MD [facility] CPT-45328 Level 3 Est. Patient 12:29:32 CDT Dangelo arroyo MD [facility] CPT-24196 Level 3 Est. Patient 16:53:02 CDT Checo Conklin MD [facility] CPT-40028 Level 3 Est. Patient 16:37:13 CDT Checo Conklin MD [facility] CPT-63126 Level 3 Est. Patient 16:16:59 CDT Paul Hamlin MD [facility] CPT-96652 Level 3 Est. Patient 14:20:13 CDT Dangelo arroyo MD [facility] CPT-97789 Level 4 Est. Patient 11:29:33 CDT Checo Conklin MD [facility] CPT-28569 Level 3 Est. Patient 17:08:31 CDT Checo Conklin MD [facility] CPT-26111 Level 3 Est. Patient 16:50:42 DONKEY DOCTOR Checo Conklin MD [facility] CPT-91488 Level 4 Est. Patient 09:26:08 DONKEY DOCTOR Checo Conklin MD [facility] CPT-32037 Level 3 Est. Patient 11:37:10 CDT Checo Conklin MD [facility] CPT-03409 Level 4 Est. Patient 14:07:38 CDT Checo Conklin MD [facility] CPT-12323 Level 3 Est. Patient 09:54:41 CDT Checo Conklin MD [facility] CPT-75461 Level 3 Est. Patient 11:10:54 CDT Paul Hamlin MD [facility] CPT-82486 Level 3 Est. Patient 14:16:56 DONKEY DOCTOR Checo Conklin MD [facility] CPT-45091 Level 3 Est. Patient 11:04:11 DONKEY DOCTOR Checo Conklin MD [facility] CPT-39199 Level 3 Est. Patient 17:09:26 CDT Dangelo arroyo MD [facility] CPT-48563 Level 3 Est. Patient 16:54:37 CDT Checo Conklin MD [facility] Procedures Code Procedure Name Date Entry Date Standard Desc ription CPT-LR Lesion Removal 19:53:27 CDT CPT-OV Office Visit 11:31:28 CDT CPT-43190 Tubersol 09:39:29 CDT CPT-J2550 Phenergan 25 mg (Promethazine) 13:59:02 DONKEY DOCTOR CPT-J1885 Toradol 60 mg (Ketorolac) 13:59:02 DONKEY DOCTOR 2012
--- OUTSIDE RECORDS SUMMARY | 2019-09-29 02:12 | XMS REPORT | Clinical Summary ---
Author Author Admin, Bethany Gonzales Organization [facility] Address Unknown Phone Unavailable Allergies, Adverse [...] 201 08/27/26 CONCUSSION ICD-850.9 Inactive Checo Joshua BREAST CANCER ICD-V16.3 Inactive Checo Joshua ABDOMINAL PAIN RIGHT LOWER QUADRANT ICD-789.03 Inactive Checo Conklin MD UTI ICD-599.0 Inactive Checo Conklin MD 2013 PHARYNGITIS ICD-462 Inactive Checo Conklin MD OTITIS MEDIA-RIGHT ICD-382.9 Inactive Checo Cnoklin MD Hypoglycemia, unspecified ICD-251.2 Inactive Checo Conklin MD Insomnia ICD-780.52 Inactive Checo Joshua HEADACHE, TENSION ICD-307.81 Inactive Checo Conklin MD Breast mass, right [...] MD Sinusitis ICD-461.9 Inactive Checo Conklin MD Bacterial vaginosis ICD-616.10 Inactive Lenora Conklin MD Medication List Medication Instructions Start Date Stop Date Generic Name NDC Status Provider Patient Instruction DIFLUCAN 150 MG TAB 1 tablet by mouth qod FLUCONA ZOLE 35993103554 Active Jillina Frazell EDUCATION SUPERVISOR Active CLARITIN 10 MG TAB 1 tablet by mouth daily as needed for allergies LORATADINE 20329516159 Active Jillina Frazell EDUCATION SUPERVISOR Active AZITHROMYCIN 250 MG TABS 2 po qd x 1 day, then 1 po qd x 4 days AZITHROMYCIN 20706830586 Active Jillina Frazell EDUCATION SUPERVISOR A ctive FLAGYL 500 MG TAB 1 tablet by mouth bid METRONI DAZOLE 08595264143 No Longer Active Checo Conklin MD Active FOCALIN XR 10 MG ORAL [id number] 1 po q a.m. DEX METHYLPHENIDATE HCL 77222712225 Active Checo Conklin MD Active MAGNESIUM CITRATE 1.745 GM/30ML ORAL SOLN 150ml po BID PRN C onstipation MAGNESIUM CITRATE 87800089756 No Longer Active Checo Conklin MD Active BACTROBAN 2 % CREAM Apply to affected area BID for up to 10 days MUPIROCIN CALCIUM 12512976145 No Longer Active Checo Conklin MD Active HYDROCODONE-ACETAMINOPHEN 5-325 MG TABS 1 tab by mouth every 6 hours as needed HYDROCODONE-ACETAMINOPHEN 11482158115 No Longer Activ e Checo Conklin MD Active IBUPROFEN 800 MG TABS 1 tab every 8 hours with food 31/03/21 IBUPROFEN 70520098440 No Longer Active Checo Conklin MD Activ e DIFLUCAN 150 MG TAB 1 tablet by mouth if needed, hold until symptoms start FLUCONAZOLE 38477090509 No Longer Active Checo Ortiz MD Active BACTRIM DS 800-160 MG TAB 1 tab by mouth twice daily 2 TRIMETHOPRIM-SULFAMETHOXAZOLE 45857492320 No Longer Active Corry leong LPN Active MIRALAX PACK 1 po qd PRN Constipation POLYETHYL JOEL GLYCOL 3350 81678902119 Active Checo Conklin MD Active HYDROCODONE-ACETAMINOPHEN 5-325 MG TABS 0.5 to 1 tab b y mouth every 6 hours as needed HYDROCODONE-ACETAMINOPHEN 96798298822 No Longer Active Checo Conklin MD Active ONDANSETRON [address] one tablet on tongue and allow to dissolve every 6 hours as needed for vomitting ONDANSETRO N 49175081143 No Longer Active Checo Conklin MD Active COMPRO 25 MG RECTAL SUPP insert or apply one supposit ory rectally as directed every 12 hours as needed for nausea PROCHLORPERA ZINE 11088488331 No Longer Active Checo Conklin MD Active SUMATRIPTAN SUCCINATE 100 MG ORAL TABS Take one PRN for migrane SUMATRIPTAN SUCCINATE 63693203975 No Longer Active Checo Conklin MD Active TRAVEL SICKNESS 25 MG ORAL CHEW chew and swallow one t ablet every 6 hours as needed MECLIZINE HCL 73857872254 No Longer Active Joe Conklin MD Active BUPROPION HCL ER (SR) 100 MG ORAL [id number] take one t ablet by mouth one time daily for one week then take 1 two times daily BUPROPION HCL 11353596733 No Longer Active Checo Conklin MD Activ e TERBINAFINE HCL 250 MG ORAL TABS take one table PO one time abran y TERBINAFINE HCL 08134425880 No Longer Active Checo Conklin MD Active METOCLOPRAMIDE HCL 10 MG ORAL TABS take one PO tid PRN nausea 20 29/12/14 METOCLOPRAMIDE HCL 36634275324 No Longer Active Checo Conklin MD Active DICLOFENAC SODIUM 75 MG TBEC 1 tablet by mouth twice daily P RN Knee pain DICLOFENAC SODIUM 72572626902 No Longer Active Checo Conklin MD Active LAMISIL 250 MG TAB 1 po qd TERBINAFINE HCL 548 78819972 No Longer Active Checo Conklin MD Active REGLAN 10 MG TAB 1 po TID PRN Nausea METOCLOPRA MIDE HCL 27230259536 No Longer Active Checo Conklin MD Active CELEXA 20 MG TABS 1 tablet by mouth daily CITALOPRAM HYDROBROMIDE 89556401283 No Longer Active Checo Conklin MD Activ e AZITHROMYCIN 250 MG TABS 2 po qd x 1 day, then 1 po qd x 4 days AZITHROMYCIN 08203096390 No Longer Active Checo Conklin MD Active HYDROCODONE-ACETAMINOPHEN 5-325 MG TABS 1 po q 6hr PRN Pain 2013 HYDROCODONE-ACETAMINOPHEN 83372868091 No Longer Active Lenora Conklin MD Active PHENAZOPYRIDINE HCL 200 MG TABS take 1 tab po TID for bladder pa in PHENAZOPYRIDINE HCL 87702288046 No Longer Active Checo Joshua Active CIPRO 500 MG TAB 1 tablet by mouth twice daily CIPROFLOXACIN HCL 85394634823 No Longer Active Dangelo Rangel MD Active HYDROCODONE-ACETAMINOPHEN 5-325 MG TABS 1/2 to 1 po q 4 hour s prn cough HYDROCODONE-ACETAMINOPHEN 59632575567 No Longer Activ e Dangelo Rangel MD Active BACTRIM DS 800-160 MG TABS 1 po BID x 7 days 0 SULFAMETHOXAZOLE-TRIMETHOPRIM 85024131340 No Longer Active Checo Conklin MD Active PREDNISONE 20 MG TAB 2 tabs daily for 3 days, 1 t ab daily for 3 days, 1/2 tab daily for 2 days PREDNISONE 97355339763 No Longer Active Checo Conklin MD Active TRIAMCINOLONE ACETONIDE 0.1 % OINT Apply to affected a reas TID for up to 2 weeks TRIAMCINOLONE ACETONIDE 04655271572 No Longer A ctive Checo Conklin MD Active CEFDINIR 300 MG CAPS by mouth twice a day CEFDI JAZZY 54155696041 No Longer Active Dangelo Rangel MD Active BUPROPION HCL (SMOKING DETER) 150 MG [id number] 1 a day for 1 week then 1 twice a day BUPROPION HCL (SMOKING DETER) 79048802976 No Lo nger Active Checo Conklin MD Active SIMVASTATIN 20 MG TABS 1 po qd SIMVASTATIN 4378592503 5 Active Checo Conklin MD Active CHANTIX STARTING MONTH KARTHIK 0.5 MG X 11 & 1 MG X 42 TAB S 0.5mg daily for 3 days, then 0.5mg BID for 4 days, then 1mg BID VARENICLINE TARTRATE 27048235204 No Longer Active Checo Conklin MD Activ e XANAX 0.5 MG TABS 1 po BID PRN anxiety ALPRAZOLAM 39779601388 Active Checo Conklin MD Active CONCERTA 18 MG CR-TABS 1 po q a.m. METHYLPHENID ATE HCL 46732076590 No Longer Active Checo Conklin MD Active AMBIEN 5 MG TAB 1 po qHS PRN Insomnia ZOLPIDEM TARTRATE 93065896992 Active Checo Conklin MD Active TRAZODONE HCL 100 MG TAB 0.5 to 1 po qHS PRN Insomnia TRAZODONE HCL 25866423996 No Longer Active Checo Conklin MD Acti ve FIORICET 325-50-40 MG TAB 1 tablet by mouth four times daily as needed [id number] 18215018871 No Longer Active Checo Conklin MD Active PHENERGAN CREAM* 25mg applied to wrist q6hr PRN Nausea PHENERGAN CREAM* No Longer Active Checo Conklin MD A ctive FLONASE 50 MCG/ACT SUSP 1 spray each nostril am and hs FLUTICASONE PROPIONATE 48639112169 No Longer Active Checo Conklin MD Activ e ANTIPYRINE-BENZOCAINE 5.4-1.4 % SOLN 1-2 drops in affected ear BENZOCAINE-ANTIPYRINE 20676526538 No Longer Active Checo Conklin MD Active CEFDINIR 300 MG CAPS 1 po bid CEFDINIR 40567822 120 No Longer Active Checo Conklin MD Active PREDNISONE 20 MG TAB 2 tabs daily for 3 days, 1 t ab daily for 3 days, 1/2 tab daily for 2 days PREDNISONE 47925906910 No Longer Active Aracelis Conklin MD Active AZITHROMYCIN 250 MG TABS 2 po qd x 1 day, then 1 po qd x 4 days AZITHROMYCIN 68395087832 No Longer Active Checo Conklin MD Active PREDNISONE 20 MG TAB 2 tabs daily for 3 days, 1 t ab daily for 3 days, 1/2 tab daily for 2 days PREDNISONE 12240688947 No Longer Active Checo Conklin MD Active ZITHROMAX Z-KARTHIK 250 MG TABS 2 today, then 1 daily for 4 days 201 09/18/28 AZITHROMYCIN 44336945032 No Longer Active Paul Hamlin MD Active FOCALIN XR 10 MG [id number] 1 po q a.m. D EXMETHYLPHENIDATE HCL 03871424844 No Longer Active Paul Hamlin MD Activ e PERCOCET 10-325 MG TABS 1 tablet every 6 hours as needed for pain OXYCODONE-ACETAMINOPHEN 40865767849 No Longer Active Paul Hamlin MD Active LORTAB 5 5-500 MG TABS 1/2 to 1 tablet by mouth flaquito ry 4 hours as needed for pain HYDROCODONE-ACETAMINOPHEN 53784719397 No Longer Active Checo Conklin MD Active FOCALIN XR 15 MG [id number] 1 po q a.m. D EXMETHYLPHENIDATE HCL 91902301567 No Longer Active Checo Conklin MD Activ e ZOFRAN ODT 4 MG TBDP 1 po q6hr PRN Nausea ONDAN SETRON 85621944265 No Longer Active Checo Conklin MD Active PERCOCET 5-325 MG TABS 1 tablet by mouth every 6 hours as needed OXYCODONE-ACETAMINOPHEN 81021557145 No Longer Active Checo Conklin MD Active PYRIDIUM 200 MG TABS take 1 tab po TID prn urinary pain. 0 PHENAZOPYRIDINE HCL 63227234132 No Longer Active hCeco Conklin MD Active FLUCONAZOLE 150 MG TABS take 1 tab po qday once 04/06 FLUCONAZOLE 32805556698 No Longer Active Dangelo Rangel MD Acti ve CIPRO 500 MG TAB 1 tablet by mouth twice daily CIPROFLOXACIN HCL 39804569476 No Longer Active Dangelo Rangel MD Active PYRIDIUM 200 MG TABS take 1 tab po TID prn urinary pain. 0 PYRIDIUM 200 MG TABS 3626903 PHENAZOPYRIDINE HCL Inactive PERCOCET 5-325 MG TABS 1 tablet by mouth every 6 hours as needed PERCOCET 5-325 MG TABS 0594210 OXYCODONE-ACETAMINOPHEN I nactive ZOFRAN ODT 4 MG TBDP 1 po q6hr PRN Nausea ZOFRAN ODT 4 MG TBDP 738258 ONDANSETRON Inactive FOCALIN XR 15 MG [id number] 1 po q a.m. F OCALIN XR 15 MG [id number] DEXMETHYLPHENIDATE HCL Inactive LORTAB 5 5-500 MG TABS 1/2 to 1 tablet by mouth flaquito ry 4 hours as needed for pain LORTAB 5 5-500 MG TABS HYDROCODONE-A CETAMINOPHEN Inactive PERCOCET 10-325 MG TABS 1 tablet every 6 hours as needed for pain PERCOCET 10-325 MG TABS 7884192 OXYCODONE-ACETAMINOPHEN Inactive FOCALIN XR 10 MG [id number] 1 po q a.m. F OCALIN XR 10 MG [id number] DEXMETHYLPHENIDATE HCL Inactive CEFDINIR 300 MG CAPS 1 po bid CEFDINIR 300 MG CAPS 20 0346 CEFDINIR Inactive ANTIPYRINE-BENZOCAINE 5.4-1.4 % SOLN 1-2 drops in affected ear ANTIPYRINE-BENZOCAINE 5.4-1.4 % SOLN 005597 BENZOCAINE-ANTIPYRINE I nactive FLONASE 50 MCG/ACT SUSP [...] PRN Insomnia TRAZODONE HCL 100 MG TAB 722604 TRAZODONE HCL Inactive CONCERTA 18 MG CR-TABS [...] s prn cough HYDROCODONE-ACETAMINOPHEN 5-325 MG TABS 994832 HYDROCODONE-ACETAMINOPHEN Inactive PHENAZOPYRIDINE HCL 200 MG TABS take 1 tab po TID for bladder pa in PHENAZOPYRIDINE HCL 200 MG TABS 0668237 PHENAZOPYRIDINE HCL Inactive HYDROCODONE-ACETAMINOPHEN 5-325 MG TABS 1 po q 6hr PRN Pain 2013 HYDROCODONE-ACETAMINOPHEN 5-325 MG TABS 156756 HYDROCODONE-ACETAMINOPHEN Inactive CELEXA 20 MG TABS 1 tablet by mouth daily CELEXA 20 MG TABS 547468 CITALOPRAM HYDROBROMIDE Inactive REGLAN 10 MG TAB 1 po TID PRN Nausea REGLAN 10 MG TAB 564785 METOCLOPRAMIDE HCL Inactive LAMISIL 250 MG TAB 1 po qd LAMISIL 250 MG TAB 054535 TERBINAFINE HCL Inactive DICLOFENAC SODIUM 75 MG TBEC 1 tablet by mouth twice daily P RN Knee pain DICLOFENAC SODIUM 75 MG TBEC 767501 DICLOFENAC S ODIUM Inactive METOCLOPRAMIDE HCL 10 MG ORAL TABS take one PO tid PRN nausea 20 29/12/14 METOCLOPRAMIDE HCL 10 MG ORAL TABS 885639 METOCLOPRAMID E HCL Inactive TERBINAFINE HCL 250 MG ORAL TABS take one table PO one time abran y TERBINAFINE HCL 250 MG ORAL TABS 260230 TERBINAFINE HCL Inactive BUPROPION HCL ER (SR) 100 MG ORAL [id number] take one t ablet by mouth one time daily for one week then take 1 two times daily BUPROPION HCL ER (SR) 100 MG ORAL [id number] BUPROPION HCL Inacti ve TRAVEL SICKNESS 25 MG ORAL CHEW chew and swallow one t ablet every 6 hours as needed TRAVEL SICKNESS 25 MG ORAL CHEW 067617 MECLIZINE HCL Inactive SUMATRIPTAN SUCCINATE 100 MG ORAL TABS Take one PRN for migrane SUMATRIPTAN SUCCINATE 100 MG ORAL TABS 633120 SUMATRIPT AN SUCCINATE Inactive COMPRO 25 MG RECTAL SUPP insert or apply one supposit ory rectally as directed every 12 hours as needed for nausea COMP RO 25 MG RECTAL SUPP 727168 PROCHLORPERAZINE Inactive ONDANSETRON [address] one tablet on tongue and allow to dissolve every 6 hours as needed for vomitting ON DANSETRON 8 MG ORAL TBDP 720097 ONDANSETRON Inactive HYDROCODONE-ACETAMINOPHEN 5-325 MG TABS 0.5 to 1 tab b y mouth every 6 hours as needed HYDROCODONE-ACETAMINOPHEN 5-325 MG TABS 8 70220 HYDROCODONE-ACETAMINOPHEN Inactive BACTRIM DS 800-160 MG TAB 1 tab by mouth twice daily 2 BACTRIM DS 800-160 MG TAB 087026 TRIMETHOPRIM-SULFAMETHOXAZOLE Inac tive DIFLUCAN 150 MG TAB 1 tablet by mouth if needed, hold until symptoms start DIFLUCAN 150 MG TAB 891461 FLUCONAZOLE Inactive IBUPROFEN 800 MG TABS 1 tab every 8 hours with food 31/03/21 IBUPROFEN 800 MG TABS 549564 IBUPROFEN Inactive HYDROCODONE-ACETAMINOPHEN 5-325 MG TABS 1 tab by mouth every 6 hours as needed HYDROCODONE-ACETAMINOPHEN 5-325 MG TABS 072360 HYDROCODONE-ACETAMINOPHEN Inactive BACTROBAN 2 % CREAM Apply to affected area BID for up to 10 days BACTROBAN 2 % CREAM 424834 MUPIROCIN CALCIUM Inactive MAGNESIUM CITRATE 1.745 GM/30ML ORAL SOLN 150ml po BID PRN C onstipation MAGNESIUM CITRATE 1.745 GM/30ML ORAL SOLN 125167 0 MAGNESIUM CITRATE Inactive CIPRO 500 MG TAB 1 tablet by mouth twice daily CIPRO 500 MG TAB 707175 CIPROFLOXACIN HCL Inactive FLUCONAZOLE 150 MG TABS take 1 tab po qday once 04/06 FLUCONAZOLE 150 MG TABS 748203 FLUCONAZOLE Inactive ZITHROMAX Z-KARTHIK 250 MG TABS 2 today, then 1 daily for 4 days 201 09/18/28 ZITHROMAX Z-KARTHIK 250 MG TABS 7396883 AZITHROMYCIN Inac tive PREDNISONE 20 MG TAB 2 tabs daily for 3 days, 1 t ab daily for 3 days, 1/2 tab daily for 2 days PREDNISONE 20 MG TAB 122044 PREDNISON E Inactive AZITHROMYCIN 250 MG TABS 2 po qd x 1 day, then 1 po qd x 4 days AZITHROMYCIN 250 MG TABS 8374410 AZITHROMYCIN Inactiv e PREDNISONE 20 MG TAB 2 tabs daily for 3 days, 1 t ab daily for 3 days, 1/2 tab daily for 2 days PREDNISONE 20 MG TAB 896551 PREDNISON E Inactive CEFDINIR 300 MG CAPS by mouth twice a day CEFDINIR 300 MG CAPS 950447 CEFDINIR Inactive TRIAMCINOLONE ACETONIDE 0.1 % OINT Apply to affected a reas TID for up to 2 weeks TRIAMCINOLONE ACETONIDE 0.1 % OINT 014338 6 TRIAMCINOLONE ACETONIDE Inactive PREDNISONE 20 MG TAB 2 tabs daily for 3 days, 1 t ab daily for 3 days, 1/2 tab daily for 2 days PREDNISONE 20 MG TAB 141984 PREDNISON E Inactive BACTRIM DS 800-160 MG TABS 1 po BID x 7 days 0 BACTRIM DS 800-160 MG TABS 549959 SULFAMETHOXAZOLE-TRIMETHOPRIM Inactive CIPRO 500 MG TAB 1 tablet by mouth twice daily CIPRO 500 MG TAB 768610 CIPROFLOXACIN HCL Inactive AZITHROMYCIN 250 MG TABS 2 po qd x 1 day, then 1 po qd x 4 days AZITHROMYCIN 250 MG TABS 0698920 AZITHROMYCIN Inactiv e FLAGYL 500 MG TAB 1 tablet by mouth bid FLAGYL 500 MG TAB 041059 METRONIDAZOLE Inactive Immunizations Vaccine Administration Date Value [...] ... - Chemistry sodium, serum 141 mmol/L 266-988 8839/01/26 carbon dioxide, venous blood 30.0 mmol/L 21.0-32 .0 potassium, serum 4.0 mmol/L 3.5-5.2 chloride, serum 105 mmol/L 98-107 blood glucose 85 mg/dL 65-110 urea nitrogen, blood 9 mg/dL 7-18 creatinine, serum 0.66 mg/dL 0.55-1.30 alanine aminotransferase (SGPT), serum 31 U/L 12-78 aspartate aminotransferase (SGOT), serum 21 U/L 15-37 calcium, serum 8.2 mg/dL 8.5-10.1 bilirubin, serum, total 1.10 mg/dL 0.00-1.00 cholesterol, serum 178 mg/dL 500-185 0727/01/26 triglyceride, serum, fasting 149 mg/dL 30-200 HDL [...] 5.0-8.5 Encounters Code Encounter Date Provider Facility CPT-44264 Level 3 Est. Patient 11:28:51 RING STRIKER Efren almendarez APRN [facility] CPT-60742 Level 4 Est. Patient 13:55:46 RING STRIKER Checo Conklin MD [facility] CPT-37219 Level 4 Est. Patient 17:10:53 CDT Checo Conklin MD [facility] CPT-97666 Level 3 Est. Patient 15:56:22 CDT Checo Conklin MD [facility] CPT-01564 Level 3 Est. Patient 15:29:07 CDT Checo Conklin MD [facility] CPT-84208 Level 3 Est. Patient 14:38:41 CDT Checo Conklin MD [facility] CPT-69725 Level 3 Est. Patient 15:22:03 RING STRIKER Thomas reynolds DO [facility] CPT-28853 Level 3 Est. Patient 13:34:17 RING STRIKER Checo Conklin MD [facility] CPT-46959 Level 3 Est. Patient 12:29:32 CDT Dangelo arroyo MD [facility] CPT-57657 Level 3 Est. Patient 16:53:02 CDT Checo Conklin MD [facility] CPT-15176 Level 3 Est. Patient 16:37:13 CDT Checo Conklin MD [facility] CPT-56726 Level 3 Est. Patient 16:16:59 CDT Paul Hamlin MD [facility] CPT-08006 Level 3 Est. Patient 14:20:13 CDT Dangelo arroyo MD [facility] CPT-23051 Level 4 Est. Patient 11:29:33 CDT Checo Conklin MD [facility] CPT-52254 Level 3 Est. Patient 17:08:31 CDT Checo Conklin MD [facility] CPT-38475 Level 3 Est. Patient 16:50:42 RING STRIKER Checo Conklin MD [facility] CPT-35208 Level 4 Est. Patient 09:26:08 RING STRIKER Checo Conklin MD [facility] CPT-75539 Level 3 Est. Patient 11:37:10 CDT Checo Conklin MD [facility] CPT-09263 Level 4 Est. Patient 14:07:38 CDT Checo Conklin MD [facility] CPT-59775 Level 3 Est. Patient 09:54:41 CDT Checo Conklin MD [facility] CPT-96746 Level 3 Est. Patient 11:10:54 CDT Paul Hamlin MD [facility] CPT-74569 Level 3 Est. Patient 14:16:56 RING STRIKER Checo Conklin MD [facility] CPT-43773 Level 3 Est. Patient 11:04:11 RING STRIKER Checo Conklin MD [facility] CPT-02897 Level 3 Est. Patient 17:09:26 CDT Dangelo arroyo MD [facility] CPT-59560 Level 3 Est. Patient 16:54:37 CDT Checo Conklin MD [facility] Procedures Code Procedure Name Date Entry Date Standard Desc ription CPT-OV Office Visit 11:31:28 CDT CPT-70001 Tubersol 09:39:29 CDT CPT-J2550 Phenergan 25 mg (Promethazine) 13:59:02 RING STRIKER CPT-J1885 Toradol 60 mg (Ketorolac) 13:59:02 RING STRIKER 2012
--- OUTSIDE RECORDS SUMMARY | 2019-09-29 02:12 | XMS REPORT | Clinical Summary ---
Author Author Admin, Bethany Ayala [facility] Address Unknown Phone Unavailable Allergies, Adverse Reactions, [...] Vaginitis and vulvovaginitis, unspecified Pharyngitis 462 Active Jillmanuela Medel CHEMICAL APPLICATOR Acute pharyngitis Cough 786.2 Active Efren Medel APRN Cough FH BREAST CANCER ICD-V16.3 Inactive Checo Joshua [...] mass, right ICD-611.72 Inactive Checo Conklin MD UTI ICD-599.0 Inactive Checo Conklin MD 2013 Sinusitis ICD-461.9 Inactive Checo Conklin MD Carbuncle/furuncle [...] 1 tablet by mouth qod FLUCONA ZOLE 07373284457 Active Jillina Frazell CHEMICAL APPLICATOR Active CLARITIN 10 MG TAB 1 tablet by mouth daily as needed for allergies LORATADINE 75170109719 Active Jillina Frazell CHEMICAL APPLICATOR Active AZITHROMYCIN 250 MG TABS 2 po qd x 1 day, then 1 po qd x 4 days AZITHROMYCIN 04155329013 No Longer Active Jillina Frazell CHEMICAL APPLICATOR Active FLAGYL 500 MG TAB 1 tablet by mouth bid METRONI DAZOLE 89779639463 No Longer Active Checo Conklin MD Active FOCALIN XR 10 MG ORAL [id number] 1 po q a.m. DEX METHYLPHENIDATE HCL 68950402856 Active Checo Conklin MD Active MAGNESIUM CITRATE 1.745 GM/30ML ORAL SOLN 150ml po BID PRN C onstipation MAGNESIUM CITRATE 75877392945 No Longer Active Checo Conklin MD Active BACTROBAN 2 % CREAM Apply to affected area BID for up to 10 days MUPIROCIN CALCIUM 46549907255 No Longer Active Checo Conklin MD Active HYDROCODONE-ACETAMINOPHEN 5-325 MG TABS 1 tab by mouth every 6 hours as needed HYDROCODONE-ACETAMINOPHEN 86115813689 No Longer Activ e Checo Conklin MD Active IBUPROFEN 800 MG TABS 1 tab every 8 hours with food 31/03/21 IBUPROFEN 11175414125 No Longer Active Checo Conklin MD Activ e DIFLUCAN 150 MG TAB 1 tablet by mouth if needed, hold until symptoms start FLUCONAZOLE 54829114958 No Longer Active Checo Ortiz MD Active BACTRIM DS 800-160 MG TAB 1 tab by mouth twice daily 2 TRIMETHOPRIM-SULFAMETHOXAZOLE 30338633569 No Longer Active Corry leong LPN Active MIRALAX PACK 1 po qd PRN Constipation POLYETHYL JOEL GLYCOL 3350 62862961332 Active Checo Conklin MD Active HYDROCODONE-ACETAMINOPHEN 5-325 MG TABS 0.5 to 1 tab b y mouth every 6 hours as needed HYDROCODONE-ACETAMINOPHEN 61611080168 No Longer Active Checo Conklin MD Active ONDANSETRON [address] one tablet on tongue and allow to dissolve every 6 hours as needed for vomitting ONDANSETRO N 85235816017 No Longer Active Checo Conklin MD Active COMPRO 25 MG RECTAL SUPP insert or apply one supposit ory rectally as directed every 12 hours as needed for nausea PROCHLORPERA ZINE 77433967882 No Longer Active Checo Conklin MD Active SUMATRIPTAN SUCCINATE 100 MG ORAL TABS Take one PRN for migrane SUMATRIPTAN SUCCINATE 94371236739 No Longer Active Checo Conklin MD Active TRAVEL SICKNESS 25 MG ORAL CHEW chew and swallow one t ablet every 6 hours as needed MECLIZINE HCL 29320582280 No Longer Active Joe Conklin MD Active BUPROPION HCL ER (SR) 100 MG ORAL [id number] take one t ablet by mouth one time daily for one week then take 1 two times daily BUPROPION HCL 72846877905 No Longer Active Checo Conklin MD Activ e TERBINAFINE HCL 250 MG ORAL TABS take one table PO one time abran y TERBINAFINE HCL 47874928875 No Longer Active Checo Conklin MD Active METOCLOPRAMIDE HCL 10 MG ORAL TABS take one PO tid PRN nausea 20 29/12/14 METOCLOPRAMIDE HCL 90994262037 No Longer Active Checo Conklin MD Active DICLOFENAC SODIUM 75 MG TBEC 1 tablet by mouth twice daily P RN Knee pain DICLOFENAC SODIUM 80778242358 No Longer Active Checo Conklin MD Active LAMISIL 250 MG TAB 1 po qd TERBINAFINE HCL 548 08925442 No Longer Active Checo Conklin MD Active REGLAN 10 MG TAB 1 po TID PRN Nausea METOCLOPRA MIDE HCL 92067084502 No Longer Active Checo Conklin MD Active CELEXA 20 MG TABS 1 tablet by mouth daily CITALOPRAM HYDROBROMIDE 45677409146 No Longer Active Checo Conklin MD Activ e AZITHROMYCIN 250 MG TABS 2 po qd x 1 day, then 1 po qd x 4 days AZITHROMYCIN 35635445167 No Longer Active Checo Conklin MD Active HYDROCODONE-ACETAMINOPHEN 5-325 MG TABS 1 po q 6hr PRN Pain 2013 HYDROCODONE-ACETAMINOPHEN 31467375946 No Longer Active Lenora Conklin MD Active PHENAZOPYRIDINE HCL 200 MG TABS take 1 tab po TID for bladder pa in PHENAZOPYRIDINE HCL 13915918560 No Longer Active Checo Joshua Active CIPRO 500 MG TAB 1 tablet by mouth twice daily CIPROFLOXACIN HCL 21052657695 No Longer Active Dangelo Rangel MD Active HYDROCODONE-ACETAMINOPHEN 5-325 MG TABS 1/2 to 1 po q 4 hour s prn cough HYDROCODONE-ACETAMINOPHEN 28562389196 No Longer Activ e Dangelo Rangel MD Active BACTRIM DS 800-160 MG TABS 1 po BID x 7 days 0 SULFAMETHOXAZOLE-TRIMETHOPRIM 25299907890 No Longer Active Checo Conklin MD Active PREDNISONE 20 MG TAB 2 tabs daily for 3 days, 1 t ab daily for 3 days, 1/2 tab daily for 2 days PREDNISONE 39333695917 No Longer Active Checo Conklin MD Active TRIAMCINOLONE ACETONIDE 0.1 % OINT Apply to affected a reas TID for up to 2 weeks TRIAMCINOLONE ACETONIDE 51384413393 No Longer A ctive Checo Conklin MD Active CEFDINIR 300 MG CAPS by mouth twice a day CEFDI JAZZY 86773358439 No Longer Active Dangelo Rangel MD Active BUPROPION HCL (SMOKING DETER) 150 MG [id number] 1 a day for 1 week then 1 twice a day BUPROPION HCL (SMOKING DETER) 75390814448 No Lo nger Active Checo Conklin MD Active SIMVASTATIN 20 MG TABS 1 po qd SIMVASTATIN 6047384585 5 Active Checo Conklin MD Active CHANTIX STARTING MONTH KARTHIK 0.5 MG X 11 & 1 MG X 42 TAB S 0.5mg daily for 3 days, then 0.5mg BID for 4 days, then 1mg BID VARENICLINE TARTRATE 00000598784 No Longer Active Checo Conklin MD Activ e XANAX 0.5 MG TABS 1 po BID PRN anxiety ALPRAZOLAM 40210959291 Active Checo Conklin MD Active CONCERTA 18 MG CR-TABS 1 po q a.m. METHYLPHENID ATE HCL 33901845102 No Longer Active Checo Conklin MD Active AMBIEN 5 MG TAB 1 po qHS PRN Insomnia ZOLPIDEM TARTRATE 19209649633 Active Checo Conklin MD Active TRAZODONE HCL 100 MG TAB 0.5 to 1 po qHS PRN Insomnia TRAZODONE HCL 74249079780 No Longer Active Checo Conklin MD Acti ve FIORICET 325-50-40 MG TAB 1 tablet by mouth four times daily as needed [id number] 22856533991 No Longer Active Checo Conklin MD Active PHENERGAN CREAM* 25mg applied to wrist q6hr PRN Nausea PHENERGAN CREAM* No Longer Active Checo Conklin MD A ctive FLONASE 50 MCG/ACT SUSP 1 spray each nostril am and hs FLUTICASONE PROPIONATE 40858067925 No Longer Active Checo Conklin MD Activ e ANTIPYRINE-BENZOCAINE 5.4-1.4 % SOLN 1-2 drops in affected ear BENZOCAINE-ANTIPYRINE 47450999235 No Longer Active Checo Conklin MD Active CEFDINIR 300 MG CAPS 1 po bid CEFDINIR 53982121 120 No Longer Active Checo Conklin MD Active PREDNISONE 20 MG TAB 2 tabs daily for 3 days, 1 t ab daily for 3 days, 1/2 tab daily for 2 days PREDNISONE 15953841104 No Longer Active Aracelis Conklin MD Active AZITHROMYCIN 250 MG TABS 2 po qd x 1 day, then 1 po qd x 4 days AZITHROMYCIN 46304238462 No Longer Active Checo Conklin MD Active PREDNISONE 20 MG TAB 2 tabs daily for 3 days, 1 t ab daily for 3 days, 1/2 tab daily for 2 days PREDNISONE 23631691040 No Longer Active Checo Conklin MD Active ZITHROMAX Z-KARTHIK 250 MG TABS 2 today, then 1 daily for 4 days 201 09/18/28 AZITHROMYCIN 84963714419 No Longer Active Paul Hamlin MD Active FOCALIN XR 10 MG [id number] 1 po q a.m. D EXMETHYLPHENIDATE HCL 51163841430 No Longer Active Paul Hamlin MD Activ e PERCOCET 10-325 MG TABS 1 tablet every 6 hours as needed for pain OXYCODONE-ACETAMINOPHEN 16827389647 No Longer Active Paul Hamlin MD Active LORTAB 5 5-500 MG TABS 1/2 to 1 tablet by mouth flaquito ry 4 hours as needed for pain HYDROCODONE-ACETAMINOPHEN 51724957765 No Longer Active Checo Conklin MD Active FOCALIN XR 15 MG [id number] 1 po q a.m. D EXMETHYLPHENIDATE HCL 81443922088 No Longer Active Checo Conklin MD Activ e ZOFRAN ODT 4 MG TBDP 1 po q6hr PRN Nausea ONDAN SETRON 96662228500 No Longer Active Checo Conklin MD Active PERCOCET 5-325 MG TABS 1 tablet by mouth every 6 hours as needed OXYCODONE-ACETAMINOPHEN 05603469315 No Longer Active Checo Conklin MD Active PYRIDIUM 200 MG TABS take 1 tab po TID prn urinary pain. 0 PHENAZOPYRIDINE HCL 66013398179 No Longer Active Checo Conklin MD Active FLUCONAZOLE 150 MG TABS take 1 tab po qday once 04/06 FLUCONAZOLE 66500553182 No Longer Active Dangelo Rangel MD Acti ve CIPRO 500 MG TAB 1 tablet by mouth twice daily CIPROFLOXACIN HCL 70975212262 No Longer Active Dangelo Rangel MD Active PYRIDIUM 200 MG TABS take 1 tab po TID prn urinary pain. 0 PYRIDIUM 200 MG TABS 2619268 PHENAZOPYRIDINE HCL Inactive PERCOCET 5-325 MG TABS 1 tablet by mouth every 6 hours as needed PERCOCET 5-325 MG TABS 2711163 OXYCODONE-ACETAMINOPHEN I nactive ZOFRAN ODT 4 MG TBDP 1 po q6hr PRN Nausea ZOFRAN ODT 4 MG TBDP 592802 ONDANSETRON Inactive FOCALIN XR 15 MG [id number] 1 po q a.m. F OCALIN XR 15 MG [id number] DEXMETHYLPHENIDATE HCL Inactive LORTAB 5 5-500 MG TABS 1/2 to 1 tablet by mouth flaquito ry 4 hours as needed for pain LORTAB 5 5-500 MG TABS HYDROCODONE-A CETAMINOPHEN Inactive PERCOCET 10-325 MG TABS 1 tablet every 6 hours as needed for pain PERCOCET 10-325 MG TABS 7879327 OXYCODONE-ACETAMINOPHEN Inactive FOCALIN XR 10 MG [id number] 1 po q a.m. F OCALIN XR 10 MG [id number] DEXMETHYLPHENIDATE HCL Inactive CEFDINIR 300 MG CAPS 1 po bid CEFDINIR 300 MG CAPS 20 0346 CEFDINIR Inactive ANTIPYRINE-BENZOCAINE 5.4-1.4 % SOLN 1-2 drops in affected ear ANTIPYRINE-BENZOCAINE 5.4-1.4 % SOLN 645600 BENZOCAINE-ANTIPYRINE I nactive FLONASE 50 MCG/ACT SUSP [...] PRN Insomnia TRAZODONE HCL 100 MG TAB 281542 TRAZODONE HCL Inactive CONCERTA 18 MG CR-TABS [...] s prn cough HYDROCODONE-ACETAMINOPHEN 5-325 MG TABS 425662 HYDROCODONE-ACETAMINOPHEN Inactive PHENAZOPYRIDINE HCL 200 MG TABS take 1 tab po TID for bladder pa in PHENAZOPYRIDINE HCL 200 MG TABS 1133415 PHENAZOPYRIDINE HCL Inactive HYDROCODONE-ACETAMINOPHEN 5-325 MG TABS 1 po q 6hr PRN Pain 2013 HYDROCODONE-ACETAMINOPHEN 5-325 MG TABS 710299 HYDROCODONE-ACETAMINOPHEN Inactive CELEXA 20 MG TABS 1 tablet by mouth daily CELEXA 20 MG TABS 462013 CITALOPRAM HYDROBROMIDE Inactive REGLAN 10 MG TAB 1 po TID PRN Nausea REGLAN 10 MG TAB 677462 METOCLOPRAMIDE HCL Inactive LAMISIL 250 MG TAB 1 po qd LAMISIL 250 MG TAB 892471 TERBINAFINE HCL Inactive DICLOFENAC SODIUM 75 MG TBEC 1 tablet by mouth twice daily P RN Knee pain DICLOFENAC SODIUM 75 MG TBEC 792369 DICLOFENAC S ODIUM Inactive METOCLOPRAMIDE HCL 10 MG ORAL TABS take one PO tid PRN nausea 20 29/12/14 METOCLOPRAMIDE HCL 10 MG ORAL TABS 877005 METOCLOPRAMID E HCL Inactive TERBINAFINE HCL 250 MG ORAL TABS take one table PO one time abran y TERBINAFINE HCL 250 MG ORAL TABS 656286 TERBINAFINE HCL Inactive BUPROPION HCL ER (SR) 100 MG ORAL [id number] take one t ablet by mouth one time daily for one week then take 1 two times daily BUPROPION HCL ER (SR) 100 MG ORAL [id number] BUPROPION HCL Inacti ve TRAVEL SICKNESS 25 MG ORAL CHEW chew and swallow one t ablet every 6 hours as needed TRAVEL SICKNESS 25 MG ORAL CHEW 621488 MECLIZINE HCL Inactive SUMATRIPTAN SUCCINATE 100 MG ORAL TABS Take one PRN for migrane SUMATRIPTAN SUCCINATE 100 MG ORAL TABS 541796 SUMATRIPT AN SUCCINATE Inactive COMPRO 25 MG RECTAL SUPP insert or apply one supposit ory rectally as directed every 12 hours as needed for nausea COMP RO 25 MG RECTAL SUPP 357540 PROCHLORPERAZINE Inactive ONDANSETRON [address] one tablet on tongue and allow to dissolve every 6 hours as needed for vomitting ON DANSETRON 8 MG ORAL TBDP 735993 ONDANSETRON Inactive HYDROCODONE-ACETAMINOPHEN 5-325 MG TABS 0.5 to 1 tab b y mouth every 6 hours as needed HYDROCODONE-ACETAMINOPHEN 5-325 MG TABS 8 61449 HYDROCODONE-ACETAMINOPHEN Inactive BACTRIM DS 800-160 MG TAB 1 tab by mouth twice daily 2 BACTRIM DS 800-160 MG TAB 852221 TRIMETHOPRIM-SULFAMETHOXAZOLE Inac tive DIFLUCAN 150 MG TAB 1 tablet by mouth if needed, hold until symptoms start DIFLUCAN 150 MG TAB 606062 FLUCONAZOLE Inactive IBUPROFEN 800 MG TABS 1 tab every 8 hours with food 31/03/21 IBUPROFEN 800 MG TABS 581492 IBUPROFEN Inactive HYDROCODONE-ACETAMINOPHEN 5-325 MG TABS 1 tab by mouth every 6 hours as needed HYDROCODONE-ACETAMINOPHEN 5-325 MG TABS 976376 HYDROCODONE-ACETAMINOPHEN Inactive BACTROBAN 2 % CREAM Apply to affected area BID for up to 10 days BACTROBAN 2 % CREAM 531853 MUPIROCIN CALCIUM Inactive MAGNESIUM CITRATE 1.745 GM/30ML ORAL SOLN 150ml po BID PRN C onstipation MAGNESIUM CITRATE 1.745 GM/30ML ORAL SOLN 412245 0 MAGNESIUM CITRATE Inactive CIPRO 500 MG TAB 1 tablet by mouth twice daily CIPRO 500 MG TAB 459511 CIPROFLOXACIN HCL Inactive FLUCONAZOLE 150 MG TABS take 1 tab po qday once 04/06 FLUCONAZOLE 150 MG TABS 149830 FLUCONAZOLE Inactive ZITHROMAX Z-KARTHIK 250 MG TABS 2 today, then 1 daily for 4 days 201 09/18/28 ZITHROMAX Z-KARTHIK 250 MG TABS 8149244 AZITHROMYCIN Inac tive PREDNISONE 20 MG TAB 2 tabs daily for 3 days, 1 t ab daily for 3 days, 1/2 tab daily for 2 days PREDNISONE 20 MG TAB 841953 PREDNISON E Inactive AZITHROMYCIN 250 MG TABS 2 po qd x 1 day, then 1 po qd x 4 days AZITHROMYCIN 250 MG TABS 4749870 AZITHROMYCIN Inactiv e PREDNISONE 20 MG TAB 2 tabs daily for 3 days, 1 t ab daily for 3 days, 1/2 tab daily for 2 days PREDNISONE 20 MG TAB 192100 PREDNISON E Inactive CEFDINIR 300 MG CAPS by mouth twice a day CEFDINIR 300 MG CAPS 507199 CEFDINIR Inactive TRIAMCINOLONE ACETONIDE 0.1 % OINT Apply to affected a reas TID for up to 2 weeks TRIAMCINOLONE ACETONIDE 0.1 % OINT 158213 6 TRIAMCINOLONE ACETONIDE Inactive PREDNISONE 20 MG TAB 2 tabs daily for 3 days, 1 t ab daily for 3 days, 1/2 tab daily for 2 days PREDNISONE 20 MG TAB 920475 PREDNISON E Inactive BACTRIM DS 800-160 MG TABS 1 po BID x 7 days 0 BACTRIM DS 800-160 MG TABS 862241 SULFAMETHOXAZOLE-TRIMETHOPRIM Inactive CIPRO 500 MG TAB 1 tablet by mouth twice daily CIPRO 500 MG TAB 913053 CIPROFLOXACIN HCL Inactive AZITHROMYCIN 250 MG TABS 2 po qd x 1 day, then 1 po qd x 4 days AZITHROMYCIN 250 MG TABS 2516260 AZITHROMYCIN Inactiv e FLAGYL 500 MG TAB 1 tablet by mouth bid FLAGYL 500 MG TAB 223819 METRONIDAZOLE Inactive AZITHROMYCIN 250 MG TABS 2 po qd x 1 day, then 1 po qd x 4 days AZITHROMYCIN 250 MG TABS 7711411 AZITHROMYCIN Inactiv e Immunizations Vaccine Administration Date [...] ... - Chemistry sodium, serum 141 mmol/L 485-753 1803/01/26 carbon dioxide, venous blood 30.0 mmol/L 21.0-32 .0 potassium, serum 4.0 mmol/L 3.5-5.2 chloride, serum 105 mmol/L 98-107 blood glucose 85 mg/dL 65-110 urea nitrogen, blood 9 mg/dL 7-18 creatinine, serum 0.66 mg/dL 0.55-1.30 alanine aminotransferase (SGPT), serum 31 U/L 12-78 aspartate aminotransferase (SGOT), serum 21 U/L 15-37 calcium, serum 8.2 mg/dL 8.5-10.1 bilirubin, serum, total 1.10 mg/dL 0.00-1.00 cholesterol, serum 178 mg/dL 665-464 9063/01/26 triglyceride, serum, fasting 149 mg/dL 30-200 HDL [...] 5.0-8.5 Encounters Code Encounter Date Provider Facility CPT-73752 Level 3 Est. Patient 11:28:51 SHANK BURNISHER Efren almendarez APRN [facility] CPT-67018 Level 4 Est. Patient 13:55:46 SHANK BURNISHER Checo Conklin MD [facility] CPT-73258 Level 4 Est. Patient 17:10:53 CDT Checo Conklin MD [facility] CPT-62534 Level 3 Est. Patient 15:56:22 CDT Checo Conklin MD [facility] CPT-97487 Level 3 Est. Patient 15:29:07 CDT Checo Conklin MD [facility] CPT-55055 Level 3 Est. Patient 14:38:41 CDT Checo Conklin MD [facility] CPT-39154 Level 3 Est. Patient 15:22:03 SHANK BURNISHER Thomas reynolds DO [facility] CPT-67338 Level 3 Est. Patient 13:34:17 SHANK BURNISHER Checo Conklin MD [facility] CPT-59022 Level 3 Est. Patient 12:29:32 CDT Dangelo arroyo MD [facility] CPT-38246 Level 3 Est. Patient 16:53:02 CDT Checo Conklin MD [facility] CPT-29769 Level 3 Est. Patient 16:37:13 CDT Checo Conklin MD [facility] CPT-78085 Level 3 Est. Patient 16:16:59 CDT Paul Hamlin MD [facility] CPT-79922 Level 3 Est. Patient 14:20:13 CDT Dangelo arroyo MD [facility] CPT-87409 Level 4 Est. Patient 11:29:33 CDT Checo Conklin MD [facility] CPT-47383 Level 3 Est. Patient 17:08:31 CDT Checo Conklin MD [facility] CPT-47001 Level 3 Est. Patient 16:50:42 SHANK BURNISHER Checo Conklin MD [facility] CPT-47431 Level 4 Est. Patient 09:26:08 SHANK BURNISHER Checo Conklin MD [facility] CPT-59493 Level 3 Est. Patient 11:37:10 CDT Checo Conklin MD [facility] CPT-85938 Level 4 Est. Patient 14:07:38 CDT Checo Conklin MD [facility] CPT-96931 Level 3 Est. Patient 09:54:41 CDT Checo Conklin MD [facility] CPT-13084 Level 3 Est. Patient 11:10:54 CDT Paul Hamlin MD [facility] CPT-18868 Level 3 Est. Patient 14:16:56 SHANK BURNISHER Checo Conklin MD [facility] CPT-92084 Level 3 Est. Patient 11:04:11 SHANK BURNISHER Checo Conklin MD [facility] CPT-00575 Level 3 Est. Patient 17:09:26 CDT Dangelo arroyo MD [facility] CPT-59510 Level 3 Est. Patient 16:54:37 CDT Checo Conklin MD [facility] Procedures Code Procedure Name Date Entry Date Standard Desc ription CPT-OV Office Visit 11:31:28 CDT CPT-82005 Tubersol 09:39:29 CDT CPT-J2550 Phenergan 25 mg (Promethazine) 13:59:02 SHANK BURNISHER CPT-J1885 Toradol 60 mg (Ketorolac) 13:59:02 SHANK BURNISHER 2012
--- OUTSIDE RECORDS SUMMARY | 2019-09-29 02:12 | XMS REPORT | Clinical Summary ---
Author Author Admin, Bethany Gonzales Organization [employer] Address Unknown Phone Unavailable Allergies, Adverse [...] MD Tension headache PHARYNGITIS 462 Resolved Checo Cnoklin MD Acute pharyngitis TOBACCO ABUSE 305.1 Inactive [...] TABLET 1 po qd PAR OXETINE HCL 00649424915 Active Checo Conklin MD Active MIRALAX ORAL POWDER 8.5 to 17g po qd PRN Constipation POLYETHYLENE GLYCOL 3350 [id number] No Longer Active Checo Conklin MD Active PROTONIX 40 MG ORAL TABLET DELAYED RELEASE 1 pill by m outh daily, for acid reflux PANTOPRAZOLE SODIUM 90866638480 No Longer Activ e Corry Méndez LPN Active FLAGYL 500 MG ORAL TABLET 1 tablet by mouth bid 08/29 METRONIDAZOLE 28370663460 No Longer Active Corry Méndez LPN Active CLARITHROMYCIN 500 MG ORAL TABLET 1 tab po BID x 14 days CLARITHROMYCIN 79064788128 No Longer Active Corry Méndez LPN Active AMOXICILLIN 500 MG ORAL CAPSULE 2 po BID x 14 days for H. Pylori AMOXICILLIN 50616511771 No Longer Active Corry Méndez LPN Active FLUTICASONE PROPIONATE 50 MCG/ACT NASAL SUSPENSION 2 s prays/nostril qd PRN Congestion/Allergies FLUTICASONE PROPIONATE 3347406741 9 No Longer Active Checo Conklin MD Active AMOXICILLIN 500 MG ORAL CAPSULE 2 po BID x 10 days 201 01/15/27 AMOXICILLIN 51712875086 No Longer Active Checo Conklin MD Activ e CLARITIN 10 MG ORAL TABLET 1 tablet by mouth daily as needed for allergies LORATADINE 63708665978 No Longer Active Checo Ortiz MD Active BACTRIM DS 800-160 MG ORAL TABLET 1 tab by mouth twice daily 201 12/19/26 TRIMETHOPRIM-SULFAMETHOXAZOLE 83943240625 No Longer Active Ragini Carrillo MD Active DIFLUCAN 150 MG ORAL TABLET 1 tablet by mouth qod 2015 FLUCONAZOLE 32298751209 No Longer Active Efren Medel APRN Act mike AZITHROMYCIN 250 MG ORAL TABLET 2 po qd x 1 day, then 1 po q d x 4 days AZITHROMYCIN 39239819007 No Longer Active Efren flores APRN Active FLAGYL 500 MG ORAL TABLET 1 tablet by mouth bid 04/13 METRONIDAZOLE 85740193331 No Longer Active Checo Conklin MD Acti ve FOCALIN XR 10 MG ORAL CAPSULE EXTENDED RELEASE 24 HOUR 1 po q a.m. DEXMETHYLPHENIDATE HCL 51049825360 Active Checo Conklin MD Active MAGNESIUM CITRATE 1.745 GM/30ML ORAL SOLUTION 150ml po BID P RN Constipation MAGNESIUM CITRATE 24308782824 No Longer Active Checo Conklin MD Active BACTROBAN 2 % EXTERNAL CREAM Apply to affected area BID for up to 10 days MUPIROCIN CALCIUM 63209805799 No Longer Active Checo Conklin MD Active HYDROCODONE-ACETAMINOPHEN 5-325 MG ORAL TABLET 1 tab b y mouth every 6 hours as needed HYDROCODONE-ACETAMINOPHEN 11589103863 No Longer Active Checo Conklin MD Active IBUPROFEN 800 MG ORAL TABLET 1 tab every 8 hours with food 03/20 IBUPROFEN 80409426142 No Longer Active Checo Conklin MD Active DIFLUCAN 150 MG ORAL TABLET 1 tablet by mouth if neede d, hold until symptoms start FLUCONAZOLE 52670441256 No Longer Active Checo Conklin MD Active BACTRIM DS 800-160 MG ORAL TABLET 1 tab by mouth twice daily 201 11/23/03 TRIMETHOPRIM-SULFAMETHOXAZOLE 40480107962 No Longer Active K bernice Méndez, MANAGER OUTPATIENT Active HYDROCODONE-ACETAMINOPHEN 5-325 MG ORAL TABLET 0.5 to 1 tab by mouth every 6 hours as needed HYDROCODONE-ACETAMINOPHEN 48998724222 No Longer Active Checo Conklin MD Active ONDANSETRON 8 MG ORAL TABLET DISINTEGRATING place one tablet on tongue and allow to dissolve every 6 hours as needed for vomitting ONDANSETRON 23165425044 No Longer Active Checo Conklin MD Activ e COMPRO 25 MG RECTAL SUPPOSITORY insert or apply one garza ppository rectally as directed every 12 hours as needed for nausea PROCHLORPERAZINE 64309687982 No Longer Active Checo Conklin MD A ctive SUMATRIPTAN SUCCINATE 100 MG ORAL TABLET Take one PRN for migran e SUMATRIPTAN SUCCINATE 82765421067 No Longer Active Checo Conklin MD Active TRAVEL SICKNESS 25 MG ORAL TABLET CHEWABLE chew and sw allow one tablet every 6 hours as needed MECLIZINE HCL 08499189965 No Longer A ctive Checo Conklin MD Active BUPROPION HCL ER (SR) 100 MG ORAL TABLET EXTENDED RELE ASE 12 HOUR take one tablet by mouth one time daily for one week then take 1 two times daily BUPROPION HCL 54045729551 No Longer Active Checo gallagher MD Active TERBINAFINE HCL 250 MG ORAL TABLET take one table PO one time da moises TERBINAFINE HCL 36359258725 No Longer Active Checo Conklin MD Active METOCLOPRAMIDE HCL 10 MG ORAL TABLET take one PO tid PRN nausea METOCLOPRAMIDE HCL 16803234476 No Longer Active Checo Conklin MD Active DICLOFENAC SODIUM 75 MG ORAL TABLET DELAYED RELEASE 1 tablet by mouth twice daily PRN Knee pain DICLOFENAC SODIUM 44049382390 No Longer Active Checo Conklin MD Active LAMISIL 250 MG ORAL TABLET 1 po qd TERBINAFI NE HCL 82027977565 No Longer Active Checo Conklin MD Active REGLAN 10 MG ORAL TABLET 1 po TID PRN Nausea 3 METOCLOPRAMIDE HCL 51468920775 No Longer Active Checo Conklin MD Active CELEXA 20 MG ORAL TABLET 1 tablet by mouth daily 09/26 CITALOPRAM HYDROBROMIDE 42705236823 No Longer Active Checo Conklin MD Active AZITHROMYCIN 250 MG ORAL TABLET 2 po qd x 1 day, then 1 po q d x 4 days AZITHROMYCIN 03500889284 No Longer Active Checo Ortiz MD Active HYDROCODONE-ACETAMINOPHEN 5-325 MG ORAL TABLET 1 po q 6hr PRN Pa in HYDROCODONE-ACETAMINOPHEN 06829250287 No Longer Active Lenora Conklin MD Active PHENAZOPYRIDINE HCL 200 MG ORAL TABLET take 1 tab po TID for bladder pain PHENAZOPYRIDINE HCL 17510375511 No Longer Active Joe Conklin MD Active CIPRO 500 MG ORAL TABLET 1 tablet by mouth twice daily CIPROFLOXACIN HCL 92939254937 No Longer Active Dangelo Rangel MD Active HYDROCODONE-ACETAMINOPHEN 5-325 MG ORAL TABLET 1/2 to 1 po q 4 hours prn cough HYDROCODONE-ACETAMINOPHEN 69885670463 No Longer Activ e Dangelo Rangel MD Active BACTRIM DS 800-160 MG ORAL TABLET 1 po BID x 7 days 29/04/10 SULFAMETHOXAZOLE-TRIMETHOPRIM 88167087818 No Longer Active Checo Conklin MD Active PREDNISONE 20 MG ORAL TABLET 2 tabs daily for 3 days, 1 tab daily for 3 days, 1/2 tab daily for 2 days PREDNISONE 31261052371 No Longer Active Checo Conklin MD Active TRIAMCINOLONE ACETONIDE 0.1 % EXTERNAL OINTMENT Apply to affected areas TID for up to 2 weeks TRIAMCINOLONE ACETONIDE 48520007771 No Longer Active Checo Conklin MD Active CEFDINIR 300 MG ORAL CAPSULE by mouth twice a day 2013 CEFDINIR 80741049750 No Longer Active Dangelo Rangel MD Acti ve BUPROPION HCL ER (SMOKING DET) 150 MG ORAL TABLET EXTE NDED RELEASE 12 HOUR 1 a day for 1 week then 1 twice a day BUPROPION HCL (SMOKING DETER) 01434117450 No Longer Active Checo Conklin MD Active SIMVASTATIN 20 MG ORAL TABLET 1 po qd SIMVASTAT IN 50300930288 Active Checo Conklin MD Active CHANTIX STARTING MONTH KARTHIK 0.5 MG X 11 & 1 MG X 42 ORA L TABLET 0.5mg daily for 3 days, then 0.5mg BID for 4 days, then 1mg BID VARENICLINE TARTRATE 90192711558 No Longer Active Checo Conklin MD Activ e XANAX 0.5 MG ORAL TABLET 1 po BID PRN anxiety A LPRAZOLAM 63375717926 Active Checo Conklin MD Active CONCERTA 18 MG ORAL TABLET EXTENDED RELEASE 1 po q a.m. METHYLPHENIDATE HCL 81302937628 No Longer Active Checo Conklin MD Active AMBIEN 5 MG ORAL TABLET 1 po qHS PRN Insomnia Z OLPIDEM TARTRATE 84646822105 Active Checo Conklin MD Active TRAZODONE HCL 100 MG ORAL TABLET 0.5 to 1 po qHS PRN Insomnia 20 30/07/08 TRAZODONE HCL 92639510992 No Longer Active Checo Conklin MD Active FIORICET 325-50-40 MG TAB 1 tablet by mouth four times daily as needed [id number] 01687548016 No Longer Active Checo Conklin MD Active PHENERGAN CREAM* 25mg applied to wrist q6hr PRN Nausea PHENERGAN CREAM* No Longer Active Checo Conklin MD A ctive FLONASE 50 MCG/ACT NASAL SUSPENSION 1 spray each nostril am and hs FLUTICASONE PROPIONATE 08450430498 No Longer Active Checo Conklin MD Active ANTIPYRINE-BENZOCAINE 5.4-1.4 % OTIC SOLUTION 1-2 drops in affec yohannes ear BENZOCAINE-ANTIPYRINE 68384668662 No Longer Active Checo Conklin MD Active CEFDINIR 300 MG ORAL CAPSULE 1 po bid CEFDINIR 18198857676 No Longer Active Checo Conklin MD Active PREDNISONE 20 MG ORAL TABLET 2 tabs daily for 3 days, 1 tab daily for 3 days, 1/2 tab daily for 2 days PREDNISONE 81702385944 No Longer Active Checo Conklin MD Active AZITHROMYCIN 250 MG ORAL TABLET 2 po qd x 1 day, then 1 po q d x 4 days AZITHROMYCIN 80598824924 No Longer Active Checo Ortiz MD Active PREDNISONE 20 MG ORAL TABLET 2 tabs daily for 3 days, 1 tab daily for 3 days, 1/2 tab daily for 2 days PREDNISONE 58648302819 No Longer Active Checo Conklin MD Active ZITHROMAX Z-KARTHIK 250 MG ORAL TABLET 2 today, then 1 daily for 4 d ays AZITHROMYCIN 39594129550 No Longer Active Paul Hamlin MD Active FOCALIN XR 10 MG ORAL CAPSULE EXTENDED RELEASE 24 HOUR 1 po q a. m. DEXMETHYLPHENIDATE HCL 96437396401 No Longer Active Paul Hamlin MD Active PERCOCET 10-325 MG ORAL TABLET 1 tablet every 6 hours as needed for pain OXYCODONE-ACETAMINOPHEN 64085111123 No Longer Active Paul Hamlin MD Active LORTAB 5-500 MG ORAL TABLET 1/2 to 1 tablet by mouth e very 4 hours as needed for pain HYDROCODONE-ACETAMINOPHEN 76525938857 No Longer Active Checo Conklin MD Active FOCALIN XR 15 MG ORAL CAPSULE EXTENDED RELEASE 24 HOUR 1 po q a. m. DEXMETHYLPHENIDATE HCL 30684113788 No Longer Active Checo Conklin MD Active ZOFRAN ODT 4 MG ORAL TABLET DISINTEGRATING 1 po q6hr PRN Nausea ONDANSETRON 91403850904 No Longer Active Checo Conklin MD Active PERCOCET 5-325 MG ORAL TABLET 1 tablet by mouth every 6 hour s as needed OXYCODONE-ACETAMINOPHEN 24731822187 No Longer Active Checo Conklin MD Active PYRIDIUM 200 MG ORAL TABLET take 1 tab po TID prn urinary pain. PHENAZOPYRIDINE HCL 73172337196 No Longer Active Checo Joshua Active FLUCONAZOLE 150 MG ORAL TABLET take 1 tab po qday once FLUCONAZOLE 14675468162 No Longer Active Dangelo Rangel MD Acti ve CIPRO 500 MG ORAL TABLET 1 tablet by mouth twice daily CIPROFLOXACIN HCL 20477421640 No Longer Active Dangelo Rangel MD Active PYRIDIUM 200 MG ORAL TABLET take 1 tab po TID prn urinary pain. PYRIDIUM 200 MG ORAL TABLET 4196271 PHENAZOPYRIDINE HCL Inactive PERCOCET 5-325 MG ORAL TABLET 1 tablet by mouth every 6 hour s as needed PERCOCET 5-325 MG ORAL TABLET 2131622 OXYCODONE-ACETAMINOPHEN Inactive ZOFRAN ODT 4 MG ORAL TABLET DISINTEGRATING 1 po q6hr PRN Nausea ZOFRAN ODT 4 MG ORAL TABLET DISINTEGRATING 239035 ONDAN SETRON Inactive FOCALIN XR 15 MG [...] for pain PERCOCET 10-325 MG ORAL TABLET 5842989 OXYCODONE-ACETAMI NOPHEN Inactive FOCALIN XR 10 MG ORAL CAPSULE EXTENDED RELEASE 24 HOUR 1 po q a. m. FOCALIN XR 10 MG ORAL CAPSULE EXTENDED RELEASE 24 HOUR DEXMETHYLPHENIDATE HCL Inactive CEFDINIR 300 MG ORAL CAPSULE 1 po bid CEFDINI R 300 MG ORAL CAPSULE 446283 CEFDINIR Inactive ANTIPYRINE-BENZOCAINE 5.4-1.4 % OTIC SOLUTION 1-2 drops in affec yohannes ear ANTIPYRINE-BENZOCAINE 5.4-1.4 % OTIC SOLUTION 214227 BENZOCAINE-ANTIPYRINE Inactive FLONASE 50 MCG/ACT NASAL SUSPENSION 1 spray each nostril am and hs FLONASE 50 MCG/ACT NASAL SUSPENSION 8361187 FLUTICASONE PROPIONATE I nactive PHENERGAN CREAM* 25mg applied to wrist q6hr PRN Nausea PHENERGAN CREAM* Inactive FIORICET 325-50-40 MG TAB 1 tablet by mouth four times daily as needed FIORICET 325-50-40 MG TAB ACETAMINOPHEN-C AFF-BUTALBITAL Inactive TRAZODONE HCL 100 MG ORAL TABLET 0.5 to 1 po qHS PRN Insomnia 20 30/07/08 TRAZODONE HCL 100 MG ORAL TABLET 001341 TRAZODONE HCL Inactive CONCERTA 18 MG ORAL [...] cough HYDROCODONE-ACETAMINOPHEN 5-325 MG ORAL TABLET 8 47356 HYDROCODONE-ACETAMINOPHEN Inactive PHENAZOPYRIDINE HCL 200 MG ORAL TABLET take 1 tab po TID for bladder pain PHENAZOPYRIDINE HCL 200 MG ORAL TABLET 5032508 PHENAZOPYRIDINE HCL Inactive HYDROCODONE-ACETAMINOPHEN 5-325 MG ORAL TABLET 1 po q 6hr PRN Pa in HYDROCODONE-ACETAMINOPHEN 5-325 MG ORAL TABLET 815562 HYDROCODONE-ACETAMINOPHEN Inactive CELEXA 20 MG ORAL TABLET 1 tablet by mouth daily 09/26 CELEXA 20 MG ORAL TABLET 803891 CITALOPRAM HYDROBROMIDE Inactive REGLAN 10 MG ORAL TABLET 1 po TID PRN Nausea 3 REGLAN 10 MG ORAL TABLET 602261 METOCLOPRAMIDE HCL Inactive LAMISIL 250 MG ORAL TABLET 1 po qd L AMISIL 250 MG ORAL TABLET 117339 TERBINAFINE HCL Inactive DICLOFENAC SODIUM 75 MG ORAL TABLET DELAYED RELEASE 1 tablet by mouth twice daily PRN Knee pain DICLOFENAC SODIUM 75 MG ORAL TABLET DELAYED RELEASE 970205 DICLOFENAC SODIUM Inactive METOCLOPRAMIDE HCL 10 MG ORAL TABLET take one PO tid PRN nausea METOCLOPRAMIDE HCL 10 MG ORAL TABLET 545705 METOCLOPRAM ZACH HCL Inactive TERBINAFINE HCL 250 MG ORAL TABLET take one table PO one time da moises TERBINAFINE HCL 250 MG ORAL TABLET 837344 TERBINAFINE H CL Inactive BUPROPION HCL ER [...] SICKNESS 25 M G ORAL TABLET CHEWABLE 855831 MECLIZINE HCL Inactive SUMATRIPTAN SUCCINATE 100 MG ORAL TABLET Take one PRN for migran e SUMATRIPTAN SUCCINATE 100 MG ORAL TABLET 591341 SUMATRIPTAN SUCCINATE Inactive COMPRO 25 MG RECTAL SUPPOSITORY insert or apply one garza ppository rectally as directed every 12 hours as needed for nausea COMPRO 25 MG RECTAL SUPPOSITORY 846111 PROCHLORPERAZINE Inactive ONDANSETRON 8 MG ORAL TABLET DISINTEGRATING place one tablet on tongue and allow to dissolve every 6 hours as needed for vomitting ONDANSETRON 8 MG ORAL TABLET DISINTEGRATING 696767 ONDANSETRON Inactive HYDROCODONE-ACETAMINOPHEN 5-325 MG ORAL TABLET 0.5 to 1 tab by mouth every 6 hours as needed HYDROCODONE-ACETAMIN OPHEN 5-325 MG ORAL TABLET 461677 HYDROCODONE-ACETAMINOPHEN Inactive BACTRIM DS 800-160 MG ORAL TABLET 1 tab by mouth twice daily 201 11/23/03 BACTRIM DS 800-160 MG ORAL TABLET 540761 TRIMETHOPRIM-SULFAMETHOXAZOLE Inactive DIFLUCAN 150 MG ORAL TABLET [...] as needed HYDROCODONE-ACETAMINOPHEN 5-325 MG ORAL TABLET 681967 HYDROCODONE-ACETAMINOPHEN Inactive BACTROBAN 2 % EXTERNAL CREAM Apply to affected area BID for up to 10 days BACTROBAN 2 % EXTERNAL CREAM 756663 MUPIROCIN CA LCIUM Inactive MAGNESIUM CITRATE 1.745 GM/30ML ORAL SOLUTION 150ml po BID P RN Constipation MAGNESIUM CITRATE 1.745 GM/30ML ORAL SOLUTION 10 45685 MAGNESIUM CITRATE Inactive DIFLUCAN 150 MG ORAL TABLET 1 tablet by mouth qod 2015 DIFLUCAN 150 MG ORAL TABLET 741285 FLUCONAZOLE Inactive BACTRIM DS 800-160 MG ORAL TABLET 1 tab by mouth twice daily 201 12/19/26 BACTRIM DS 800-160 MG ORAL TABLET 611071 TRIMETHOPRIM-SULFAMETHOXAZOLE Inactive CLARITIN 10 MG ORAL TABLET 1 tablet by mouth daily as needed for allergies CLARITIN 10 MG ORAL TABLET 125282 LORATADINE I nactive FLUTICASONE PROPIONATE 50 MCG/ACT NASAL SUSPENSION 2 s prays/nostril qd PRN Congestion/Allergies FLUTICASONE PROPION ATE 50 MCG/ACT NASAL SUSPENSION 0460041 FLUTICASONE PROPIONATE Inactive MIRALAX ORAL POWDER 8.5 to 17g po qd PRN Constipation MIRALAX ORAL POWDER 950333 POLYETHYLENE GLYCOL 3350 Inactive CIPRO 500 MG ORAL TABLET 1 tablet by mouth twice daily CIPRO 500 MG ORAL TABLET 854624 CIPROFLOXACIN HCL Inactive FLUCONAZOLE 150 MG ORAL TABLET take 1 tab po qday once FLUCONAZOLE 150 MG ORAL TABLET 022947 FLUCONAZOLE Inactive ZITHROMAX Z-KARTHIK 250 MG ORAL TABLET 2 today, then 1 daily for 4 d ays ZITHROMAX Z-KARTHIK 250 MG ORAL TABLET 263900 AZITHROMYCIN Inactive PREDNISONE 20 MG ORAL TABLET 2 tabs daily for 3 days, 1 tab daily for 3 days, 1/2 tab daily for 2 days PREDNISONE 20 MG ORAL T ABLET 504128 PREDNISONE Inactive AZITHROMYCIN 250 MG ORAL TABLET 2 po qd x 1 day, then 1 po q d x 4 days AZITHROMYCIN 250 MG ORAL TABLET 294094 AZITHROMY SPARKLE Inactive PREDNISONE 20 MG ORAL TABLET 2 tabs daily for 3 days, 1 tab daily for 3 days, 1/2 tab daily for 2 days PREDNISONE 20 MG ORAL TABLET 679787 PREDNISONE Inactive CEFDINIR 300 MG ORAL CAPSULE by mouth twice a day 2013 CEFDINIR 300 MG ORAL CAPSULE 395437 CEFDINIR Inactive TRIAMCINOLONE ACETONIDE 0.1 % EXTERNAL OINTMENT Apply to affected areas TID for up to 2 weeks TRIAMCINOLONE ACETON ZACH 0.1 % EXTERNAL OINTMENT 5160852 TRIAMCINOLONE ACETONIDE Inactive PREDNISONE 20 MG ORAL TABLET 2 tabs daily for 3 days, 1 tab daily for 3 days, 1/2 tab daily for 2 days PREDNISONE 20 MG ORAL T ABLET 101385 PREDNISONE Inactive BACTRIM DS 800-160 MG ORAL TABLET 1 po BID x 7 days 29/04/10 BACTRIM DS 800-160 MG ORAL TABLET 711370 SULFAMETHOXAZOLE-TRIMETHOP RIM Inactive CIPRO 500 MG ORAL TABLET 1 tablet by mouth twice daily CIPRO 500 MG ORAL TABLET 193032 CIPROFLOXACIN HCL Inactive AZITHROMYCIN 250 MG ORAL TABLET 2 po qd x 1 day, then 1 po q d x 4 days AZITHROMYCIN 250 MG ORAL TABLET 629665 AZITHROMY SPARKLE Inactive FLAGYL 500 MG ORAL TABLET 1 tablet by mouth bid 04/13 FLAGYL 500 MG ORAL TABLET 101022 METRONIDAZOLE Inactive AZITHROMYCIN 250 MG ORAL TABLET 2 po qd x 1 day, then 1 po q d x 4 days AZITHROMYCIN 250 MG ORAL TABLET 875729 AZITHROMY SPARKLE Inactive AMOXICILLIN 500 MG ORAL CAPSULE 2 po BID x 10 days 201 01/15/27 AMOXICILLIN 500 MG ORAL CAPSULE 180104 AMOXICILLIN Inactive AMOXICILLIN 500 MG ORAL CAPSULE 2 po BID x 14 days for H. Pylori AMOXICILLIN 500 MG ORAL CAPSULE 033076 AMOXICILLIN Inactive CLARITHROMYCIN 500 MG ORAL TABLET 1 tab po BID x 14 days CLARITHROMYCIN 500 MG ORAL TABLET 789761 CLARITHROMYCIN Inacti ve FLAGYL 500 MG ORAL TABLET 1 tablet by mouth bid 08/29 FLAGYL 500 MG ORAL TABLET 147769 METRONIDAZOLE Inactive PROTONIX 40 MG ORAL TABLET DELAYED RELEASE 1 pill by m outh daily, for acid reflux PROTONIX 40 MG ORAL TABLET DELAYED RELEAS E 376340 PANTOPRAZOLE SODIUM Inactive Immunizations Vaccine Administration Date [...] ... - Chemistry sodium, serum 139 mmol/L [phone]/11/28 carbon dioxide, venous blood 26.0 mmol/L 21.0-32 [...] 5.0-8.5 Encounters Code Encounter Date Provider Facility CPT-86458 Level 4 Est. Patient 08:57:51 REGIONAL TRANSPORTATION MANAGER Checo Conklin MD [facility] CPT-25336 Level 3 Est. Patient 11:24:55 REGIONAL TRANSPORTATION MANAGER Efren almendarez [facility] CPT-51257 Level 3 Est. Patient 13:05:44 CDT Paul Hamlin MD [facility] CPT-76965 Level 3 Est. Patient 11:29:55 CDT Checo Conklin MD [facility] CPT-44356 Level 4 Est. Patient 11:08:12 REGIONAL TRANSPORTATION MANAGER Checo Conklin MD [facility] CPT-34831 Level 4 Est. Patient 16:06:48 REGIONAL TRANSPORTATION MANAGER Checo Conklin MD [facility] CPT-23855 Level 3 Est. Patient 09:11:49 CDT Efren almendarez [facility] CPT-44719 Level 2 Est. Patient 19:53:27 CDT Tanner hill MD [facility] CPT-86238 Level 3 Est. Patient 09:15:34 CDT Efren almendarez [facility] CPT-43725 Level 3 Est. Patient 11:28:51 REGIONAL TRANSPORTATION MANAGER Efren almendarez [facility] CPT-15119 Level 4 Est. Patient 13:55:46 REGIONAL TRANSPORTATION MANAGER Checo Conklin MD [facility] CPT-00987 Level 4 Est. Patient 17:10:53 CDT Checo Conklin MD [facility] CPT-86855 Level 3 Est. Patient 15:56:22 CDT Checo Conklin MD [facility] CPT-62406 Level 3 Est. Patient 15:29:07 CDT Checo Conklin MD [facility] CPT-80391 Level 3 Est. Patient 14:38:41 CDT Checo Conklin MD [facility] CPT-45368 Level 3 Est. Patient 15:22:03 REGIONAL TRANSPORTATION MANAGER Thomas reynolds DO [facility] CPT-68240 Level 3 Est. Patient 13:34:17 REGIONAL TRANSPORTATION MANAGER Checo Conklin MD [facility] CPT-08363 Level 3 Est. Patient 12:29:32 CDT Dangelo arroyo MD [facility] CPT-89211 Level 3 Est. Patient 16:53:02 CDT Checo Conklin MD [facility] CPT-20115 Level 3 Est. Patient 16:37:13 CDT Checo Conklin MD [facility] CPT-86998 Level 3 Est. Patient 16:16:59 CDT Paul Hamlin MD [facility] CPT-36434 Level 3 Est. Patient 14:20:13 CDT Dangelo arroyo MD [facility] CPT-27622 Level 4 Est. Patient 11:29:33 CDT Checo Conklin MD [facility] CPT-13211 Level 3 Est. Patient 17:08:31 CDT Checo Conklin MD [facility] CPT-55866 Level 3 Est. Patient 16:50:42 REGIONAL TRANSPORTATION MANAGER Checo Conklin MD [facility] CPT-28855 Level 4 Est. Patient 09:26:08 REGIONAL TRANSPORTATION MANAGER Checo Conklin MD [facility] CPT-31257 Level 3 Est. Patient 11:37:10 CDT Checo Conklin MD [facility] CPT-08498 Level 4 Est. Patient 14:07:38 CDT Checo Conklin MD [facility] CPT-52709 Level 3 Est. Patient 09:54:41 CDT Checo Conklin MD [facility] CPT-67628 Level 3 Est. Patient 11:10:54 CDT Paul Hamlin MD [facility] CPT-78768 Level 3 Est. Patient 14:16:56 REGIONAL TRANSPORTATION MANAGER Checo Conklin MD [facility] CPT-58104 Level 3 Est. Patient 11:04:11 REGIONAL TRANSPORTATION MANAGER Checo Conklin MD [facility] CPT-83845 Level 3 Est. Patient 17:09:26 CDT Dangelo arroyo MD [facility] CPT-72853 Level 3 Est. Patient 16:54:37 CDT Checo Conklin MD [facility] Procedures Code Procedure Name Date Entry Date Standard Desc ription CPT-86489 Abd compl w upright - XRAY USE ONLY 1 1:36:54 REGIONAL TRANSPORTATION MANAGER CPT-57728 UA w micro - LAB USE ONLY 17:06:46 CDT 2015 CPT-88486 BHCG Qual - LAB USE ONLY 17:06:46 CDT 05/06 CPT-78047 CMP - LAB USE ONLY 17:06:46 CDT CPT-50945 CBC with Diff - LAB USE ONLY 17:06:45 CDT 2 CPT-19255 Venipuncture Draw Fee 17:06:45 CDT CPT-LR Lesion Removal 19:53:27 CDT CPT-OV Office Visit 11:31:28 CDT CPT-38038 Tubersol 09:39:29 CDT CPT-J2550 Phenergan 25 mg (Promethazine) 13:59:02 REGIONAL TRANSPORTATION MANAGER CPT-J1885 Toradol 60 mg (Ketorolac) 13:59:02 REGIONAL TRANSPORTATION MANAGER 2012
--- OUTSIDE RECORDS SUMMARY | 2019-09-29 02:13 | XMS REPORT | Clinical Summary ---
Author Author Admin, Bethany Ayala [facility] Address Unknown Phone Unavailable Allergies, Adverse Reactions, Alerts Allergy Name Reaction Description Start Date Severity Status Pr ovider CODEINE in other meds is okay to take, not by its self Mild Active hTomas Marks DO Conditions or Problems Problem Name [...] mouth every 6 hours as needed HYDROCODONE-ACETAMINOPHEN 06235449926 Active Checo Conklin MD Active DICLOFENAC SODIUM 75 MG TBEC 1 tablet by mouth twice daily P RN Knee pain DICLOFENAC SODIUM 03001330145 Active Checo Conklin MD Active LAMISIL 250 MG TAB 1 po qd TERBINAFINE HCL 548 36341943 No Longer Active Checo Conklin MD Active REGLAN 10 MG TAB 1 po TID PRN Nausea METOCLOPRA MIDE HCL 51274147743 No Longer Active Checo Conklin MD Active CELEXA 20 MG TABS 1 tablet by mouth daily CITALOPRAM HYDROBROMIDE 22809610435 No Longer Active Checo Conklin MD Activ e AZITHROMYCIN 250 MG TABS 2 po qd x 1 day, then 1 po qd x 4 days AZITHROMYCIN 15326106291 No Longer Active Checo Conklin MD Active HYDROCODONE-ACETAMINOPHEN 5-325 MG TABS 1 po q 6hr PRN Pain 2013 HYDROCODONE-ACETAMINOPHEN 39005182606 No Longer Active Lenora Conklin MD Active PHENAZOPYRIDINE HCL 200 MG TABS take 1 tab po TID for bladder pa in PHENAZOPYRIDINE HCL 11605257068 No Longer Active Checo Joshua Active CIPRO 500 MG TAB 1 tablet by mouth twice daily CIPROFLOXACIN HCL 50038676253 No Longer Active Dangelo Rangel MD Active HYDROCODONE-ACETAMINOPHEN 5-325 MG TABS 1/2 to 1 po q 4 hour s prn cough HYDROCODONE-ACETAMINOPHEN 86933739018 No Longer Activ e Dangelo Rangel MD Active BACTRIM DS 800-160 MG TABS 1 po BID x 7 days 0 SULFAMETHOXAZOLE-TRIMETHOPRIM 00695854766 No Longer Active Checo Conklin MD Active PREDNISONE 20 MG TAB 2 tabs daily for 3 days, 1 t ab daily for 3 days, 1/2 tab daily for 2 days PREDNISONE 05144503857 No Longer Active Checo Conklin MD Active TRIAMCINOLONE ACETONIDE 0.1 % OINT Apply to affected a reas TID for up to 2 weeks TRIAMCINOLONE ACETONIDE 38214679438 No Longer A ctive Checo Conklin MD Active CEFDINIR 300 MG CAPS by mouth twice a day CEFDI JAZZY 10860703694 No Longer Active Dangelo Rangel MD Active BUPROPION HCL (SMOKING DETER) 150 MG [id number] 1 a day for 1 week then 1 twice a day BUPROPION HCL (SMOKING DETER) 82254906735 No Lo nger Active Checo Conklin MD Active SIMVASTATIN 20 MG TABS 1 po qd SIMVASTATIN 1995299449 5 Active Checo Conklin MD Active CHANTIX STARTING MONTH KARTHIK 0.5 MG X 11 & 1 MG X 42 TAB S 0.5mg daily for 3 days, then 0.5mg BID for 4 days, then 1mg BID VARENICLINE TARTRATE 67075633934 No Longer Active Checo Conklin MD Activ e XANAX 0.5 MG TABS 1 po BID PRN anxiety ALPRAZOLAM 24836525362 Active Checo Conklin MD Active CONCERTA 18 MG CR-TABS 1 po q a.m. METHYLPHENID ATE HCL 08839277665 No Longer Active Checo Conklin MD Active AMBIEN 5 MG TAB 1 po qHS PRN Insomnia ZOLPIDEM TARTRATE 01531123835 Active Checo Conklin MD Active TRAZODONE HCL 100 MG TAB 0.5 to 1 po qHS PRN Insomnia TRAZODONE HCL 43210227131 No Longer Active Checo Conklin MD Acti ve FIORICET 325-50-40 MG TAB 1 tablet by mouth four times daily as needed [id number] 06468093901 No Longer Active Checo Conklin MD Active PHENERGAN CREAM* 25mg applied to wrist q6hr PRN Nausea PHENERGAN CREAM* No Longer Active Checo Gonzales ctive FLONASE 50 MCG/ACT SUSP 1 spray each nostril am and hs FLUTICASONE PROPIONATE 95420653321 No Longer Active Checo Conklin MD Activ e ANTIPYRINE-BENZOCAINE 5.4-1.4 % SOLN 1-2 drops in affected ear BENZOCAINE-ANTIPYRINE 84430711046 No Longer Active Checo Conklin MD Active CEFDINIR 300 MG CAPS 1 po bid CEFDINIR 26547101 120 No Longer Active Checo Conklin MD Active PREDNISONE 20 MG TAB 2 tabs daily for 3 days, 1 t ab daily for 3 days, 1/2 tab daily for 2 days PREDNISONE 88799849561 No Longer Active Aracelis Conklin MD Active AZITHROMYCIN 250 MG TABS 2 po qd x 1 day, then 1 po qd x 4 days AZITHROMYCIN 24328869393 No Longer Active Checo Conklin MD Active PREDNISONE 20 MG TAB 2 tabs daily for 3 days, 1 t ab daily for 3 days, 1/2 tab daily for 2 days PREDNISONE 21689211435 No Longer Active Checo Conklin MD Active ZITHROMAX Z-KARTHIK 250 MG TABS 2 today, then 1 daily for 4 days 201 09/18/28 AZITHROMYCIN 88987227029 No Longer Active Pual Hamlin MD Active FOCALIN XR 10 MG [id number] 1 po q a.m. D EXMETHYLPHENIDATE HCL 53868295550 No Longer Active Paul Hamlin MD Activ e PERCOCET 10-325 MG TABS 1 tablet every 6 hours as needed for pain OXYCODONE-ACETAMINOPHEN 90357564165 No Longer Active Paul Hamlin MD Active LORTAB 5 5-500 MG TABS 1/2 to 1 tablet by mouth flaquito ry 4 hours as needed for pain HYDROCODONE-ACETAMINOPHEN 72605156110 No Longer Active Checo Conklin MD Active FOCALIN XR 15 MG [id number] 1 po q a.m. D EXMETHYLPHENIDATE HCL 82072067325 No Longer Active Checo Conklin MD Activ e ZOFRAN ODT 4 MG TBDP 1 po q6hr PRN Nausea ONDAN SETRON 76064619148 No Longer Active Checo Conklin MD Active PERCOCET 5-325 MG TABS 1 tablet by mouth every 6 hours as needed OXYCODONE-ACETAMINOPHEN 74032195318 No Longer Active Checo Conklin MD Active PYRIDIUM 200 MG TABS take 1 tab po TID prn urinary pain. 0 PHENAZOPYRIDINE HCL 13332078988 No Longer Active Checo Conklin MD Active FLUCONAZOLE 150 MG TABS take 1 tab po qday once 04/06 FLUCONAZOLE 32934227645 No Longer Active Dangelo Rangel MD Acti ve CIPRO 500 MG TAB 1 tablet by mouth twice daily CIPROFLOXACIN HCL 90771871536 No Longer Active Dangelo Rangel MD Active PYRIDIUM 200 MG TABS take 1 tab po TID prn urinary pain. 0 PYRIDIUM 200 MG TABS 0998732 PHENAZOPYRIDINE HCL Inactive PERCOCET 5-325 MG TABS 1 tablet by mouth every 6 hours as needed PERCOCET 5-325 MG TABS 5235419 OXYCODONE-ACETAMINOPHEN I nactive ZOFRAN ODT 4 MG TBDP 1 po q6hr PRN Nausea ZOFRAN ODT 4 MG TBDP 362875 ONDANSETRON Inactive FOCALIN XR 15 MG [id number] 1 po q a.m. F OCALIN XR 15 MG [id number] DEXMETHYLPHENIDATE HCL Inactive LORTAB 5 5-500 MG TABS 1/2 to 1 tablet by mouth flaquito ry 4 hours as needed for pain LORTAB 5 5-500 MG TABS HYDROCODONE-A CETAMINOPHEN Inactive PERCOCET 10-325 MG TABS 1 tablet every 6 hours as needed for pain PERCOCET 10-325 MG TABS 4280218 OXYCODONE-ACETAMINOPHEN Inactive FOCALIN XR 10 MG [id number] 1 po q a.m. F OCALIN XR 10 MG [id number] DEXMETHYLPHENIDATE HCL Inactive CEFDINIR 300 MG CAPS 1 po bid CEFDINIR 300 MG CAPS 20 0346 CEFDINIR Inactive ANTIPYRINE-BENZOCAINE 5.4-1.4 % SOLN 1-2 drops in affected ear ANTIPYRINE-BENZOCAINE 5.4-1.4 % SOLN 636115 BENZOCAINE-ANTIPYRINE I nactive FLONASE 50 MCG/ACT SUSP 1 spray each nostril am and hs FLONASE 50 MCG/ACT SUSP 859448 FLUTICASONE PROPIONATE Inactive PHENERGAN CREAM* 25mg applied to wrist q6hr PRN Nausea PHENERGAN CREAM* Inactive FIORICET 325-50-40 MG TAB 1 tablet by mouth four times daily as needed FIORICET 325-50-40 MG TAB ACETAMINOPHEN-C AFF-BUTALBITAL Inactive TRAZODONE HCL 100 MG TAB 0.5 to 1 po qHS PRN Insomnia TRAZODONE HCL 100 MG TAB 437218 TRAZODONE HCL Inactive CONCERTA 18 MG CR-TABS [...] s prn cough HYDROCODONE-ACETAMINOPHEN 5-325 MG TABS 464360 HYDROCODONE-ACETAMINOPHEN Inactive PHENAZOPYRIDINE HCL 200 MG TABS take 1 tab po TID for bladder pa in PHENAZOPYRIDINE HCL 200 MG TABS 7202543 PHENAZOPYRIDINE HCL Inactive HYDROCODONE-ACETAMINOPHEN 5-325 MG TABS 1 po q 6hr PRN Pain 2013 HYDROCODONE-ACETAMINOPHEN 5-325 MG TABS 466760 HYDROCODONE-ACETAMINOPHEN Inactive CELEXA 20 MG TABS 1 tablet by mouth daily CELEXA 20 MG TABS 876586 CITALOPRAM HYDROBROMIDE Inactive REGLAN 10 MG TAB 1 po TID PRN Nausea REGLAN 10 MG TAB 623720 METOCLOPRAMIDE HCL Inactive LAMISIL 250 MG TAB 1 po qd LAMISIL 250 MG TAB 463522 TERBINAFINE HCL Inactive CIPRO 500 MG TAB 1 tablet by mouth twice daily CIPRO 500 MG TAB 443836 CIPROFLOXACIN HCL Inactive FLUCONAZOLE 150 MG TABS take 1 tab po qday once 04/06 FLUCONAZOLE 150 MG TABS 235101 FLUCONAZOLE Inactive ZITHROMAX Z-KARTHIK 250 MG TABS 2 today, then 1 daily for 4 days 201 09/18/28 ZITHROMAX Z-KARTHIK 250 MG TABS 5480311 AZITHROMYCIN Inac tive PREDNISONE 20 MG TAB 2 tabs daily for 3 days, 1 t ab daily for 3 days, 1/2 tab daily for 2 days PREDNISONE 20 MG TAB 884826 PREDNISON E Inactive AZITHROMYCIN 250 MG TABS 2 po qd x 1 day, then 1 po qd x 4 days AZITHROMYCIN 250 MG TABS 8005205 AZITHROMYCIN Inactiv e PREDNISONE 20 MG TAB 2 tabs daily for 3 days, 1 t ab daily for 3 days, 1/2 tab daily for 2 days PREDNISONE 20 MG TAB 348323 PREDNISON E Inactive CEFDINIR 300 MG CAPS by mouth twice a day CEFDINIR 300 MG CAPS 155338 CEFDINIR Inactive TRIAMCINOLONE ACETONIDE 0.1 % OINT Apply to affected a reas TID for up to 2 weeks TRIAMCINOLONE ACETONIDE 0.1 % OINT 957987 6 TRIAMCINOLONE ACETONIDE Inactive PREDNISONE 20 MG TAB 2 tabs daily for 3 days, 1 t ab daily for 3 days, 1/2 tab daily for 2 days PREDNISONE 20 MG TAB 234233 PREDNISON E Inactive BACTRIM DS 800-160 MG TABS 1 po BID x 7 days 0 BACTRIM DS 800-160 MG TABS SULFAMETHOXAZOLE-TRIMETHOPRIM Inactive CIPRO 500 MG TAB 1 tablet by mouth twice daily CIPRO 500 MG TAB 789386 CIPROFLOXACIN HCL Inactive AZITHROMYCIN 250 MG TABS 2 po qd x 1 day, then 1 po qd x 4 days AZITHROMYCIN 250 MG TABS 6009675 AZITHROMYCIN Inactiv e Immunizations Vaccine Administration Date [...] Panel - Chemistry sodium, serum 139 mmol/L 380-607 7100/10/24 potassium, serum 4.1 mmol/L 3.5-5.2 chloride, serum [...] 0.80 mg/dL 0.00-1.00 cholesterol, serum 147 mg/dL 196-775 0466/10/24 triglyceride, serum, fasting 112 mg/dL 30-200 HDL [...] 5.0-8.5 Encounters Code Encounter Date Provider Facility CPT-06245 Level 3 Est. Patient 14:38:41 CDT Checo Conklin MD [facility] CPT-24744 Level 3 Est. Patient 15:22:03 [employer] Thomas reynolds DO [facility] CPT-55574 Level 3 Est. Patient 13:34:17 [employer] Checo Conklin MD [facility] CPT-90673 Level 3 Est. Patient 12:29:32 CDT Dangelo arroyo MD [facility] CPT-98770 Level 3 Est. Patient 16:53:02 CDT Checo Conklin MD [facility] CPT-25041 Level 3 Est. Patient 16:37:13 CDT Checo Conklin MD [facility] CPT-90885 Level 3 Est. Patient 16:16:59 CDT Paul Hamlin MD [facility] CPT-83385 Level 3 Est. Patient 14:20:13 CDT Dangelo arroyo MD [facility] CPT-78613 Level 4 Est. Patient 11:29:33 CDT Checo Conklin MD [facility] CPT-79942 Level 3 Est. Patient 17:08:31 CDT Checo Conklin MD [facility] CPT-50145 Level 3 Est. Patient 16:50:42 [employer] Checo Conklin MD [facility] CPT-15019 Level 4 Est. Patient 09:26:08 [employer] Checo Conklin MD [facility] CPT-50676 Level 3 Est. Patient 11:37:10 CDT Checo Conklin MD [facility] CPT-83640 Level 4 Est. Patient 14:07:38 CDT Checo Conklin MD [facility] CPT-62305 Level 3 Est. Patient 09:54:41 CDT Checo Conklin MD [facility] CPT-54018 Level 3 Est. Patient 11:10:54 CDT Paul Hamlin MD [facility] CPT-36043 Level 3 Est. Patient 14:16:56 [employer] Checo Conklin MD [facility] CPT-33444 Level 3 Est. Patient 11:04:11 [employer] Checo Conklin MD [facility] CPT-85399 Level 3 Est. Patient 17:09:26 CDT Dangelo arroyo MD [facility] CPT-31384 Level 3 Est. Patient 16:54:37 CDT Checo Conklin MD [facility] Procedures Code Procedure Name Date Entry Date Standard Desc ription CPT-OV Office Visit 11:31:28 CDT CPT-17538 Tubersol 09:39:29 CDT CPT-J2550 Phenergan 25 mg (Promethazine) 13:59:02 [employer] CPT-J1885 Toradol 60 mg (Ketorolac) 13:59:02 [employer] 2012
--- OUTSIDE RECORDS SUMMARY | 2019-09-29 02:13 | XMS REPORT | Clinical Summary ---
Author Author Admin, Bethany Gonzales Organization [facility] Address Unknown Phone Unavailable Allergies, Adverse [...] vulvovaginitis, unspecified Pharyngitis 462 Active Jimarine Medel POCKET CLOSER Acute pharyngitis Cough 786.2 Active Efren Medel [...] 1 tablet by mouth qod FLUCONA ZOLE 11686899837 Active Jillina Frazell POCKET CLOSER Active CLARITIN 10 MG TAB 1 tablet by mouth daily as needed for allergies LORATADINE 66249165272 Active Jillina Frazell POCKET CLOSER Active AZITHROMYCIN 250 MG TABS 2 po qd x 1 day, then 1 po qd x 4 days AZITHROMYCIN 63284895756 No Longer Active Jillina Frazell POCKET CLOSER Active FLAGYL 500 MG TAB 1 tablet by mouth bid METRONI DAZOLE 17650191619 No Longer Active Checo Conklin MD Active FOCALIN XR 10 MG ORAL [id number] 1 po q a.m. DEX METHYLPHENIDATE HCL 87211065179 Active Checo Conklin MD Active MAGNESIUM CITRATE 1.745 GM/30ML ORAL SOLN 150ml po BID PRN C onstipation MAGNESIUM CITRATE 34286508314 No Longer Active Checo Conklin MD Active BACTROBAN 2 % CREAM Apply to affected area BID for up to 10 days MUPIROCIN CALCIUM 59238921267 No Longer Active Checo Conklin MD Active HYDROCODONE-ACETAMINOPHEN 5-325 MG TABS 1 tab by mouth every 6 hours as needed HYDROCODONE-ACETAMINOPHEN 74978189103 No Longer Activ e Checo Conklin MD Active IBUPROFEN 800 MG TABS 1 tab every 8 hours with food 31/03/21 IBUPROFEN 59612267926 No Longer Active Checo Conklin MD Activ e DIFLUCAN 150 MG TAB 1 tablet by mouth if needed, hold until symptoms start FLUCONAZOLE 59276263874 No Longer Active Checo Ortiz MD Active BACTRIM DS 800-160 MG TAB 1 tab by mouth twice daily 2 TRIMETHOPRIM-SULFAMETHOXAZOLE 16941373457 No Longer Active Corry leong LPN Active MIRALAX PACK 1 po qd PRN Constipation POLYETHYL JOEL GLYCOL 3350 21206609560 Active Checo Conklin MD Active HYDROCODONE-ACETAMINOPHEN 5-325 MG TABS 0.5 to 1 tab b y mouth every 6 hours as needed HYDROCODONE-ACETAMINOPHEN 74478987050 No Longer Active Checo Conklin MD Active ONDANSETRON [address] one tablet on tongue and allow to dissolve every 6 hours as needed for vomitting ONDANSETRO N 42791154411 No Longer Active Checo Conklin MD Active COMPRO 25 MG RECTAL SUPP insert or apply one supposit ory rectally as directed every 12 hours as needed for nausea PROCHLORPERA ZINE 30230847062 No Longer Active Checo Conklin MD Active SUMATRIPTAN SUCCINATE 100 MG ORAL TABS Take one PRN for migrane SUMATRIPTAN SUCCINATE 33452149272 No Longer Active Checo Conklin MD Active TRAVEL SICKNESS 25 MG ORAL CHEW chew and swallow one t ablet every 6 hours as needed MECLIZINE HCL 42161387995 No Longer Active Joe Conklin MD Active BUPROPION HCL ER (SR) 100 MG ORAL [id number] take one t ablet by mouth one time daily for one week then take 1 two times daily BUPROPION HCL 09718747001 No Longer Active Checo Conklin MD Activ e TERBINAFINE HCL 250 MG ORAL TABS take one table PO one time abran y TERBINAFINE HCL 06261606216 No Longer Active Checo Conklin MD Active METOCLOPRAMIDE HCL 10 MG ORAL TABS take one PO tid PRN nausea 20 29/12/14 METOCLOPRAMIDE HCL 37696334839 No Longer Active Checo Conklin MD Active DICLOFENAC SODIUM 75 MG TBEC 1 tablet by mouth twice daily P RN Knee pain DICLOFENAC SODIUM 98630921046 No Longer Active Checo Conklin MD Active LAMISIL 250 MG TAB 1 po qd TERBINAFINE HCL 548 09734046 No Longer Active Checo Conklin MD Active REGLAN 10 MG TAB 1 po TID PRN Nausea METOCLOPRA MIDE HCL 31945450040 No Longer Active Checo Conklin MD Active CELEXA 20 MG TABS 1 tablet by mouth daily CITALOPRAM HYDROBROMIDE 12723425876 No Longer Active Checo Conklin MD Activ e AZITHROMYCIN 250 MG TABS 2 po qd x 1 day, then 1 po qd x 4 days AZITHROMYCIN 06565186353 No Longer Active Checo Conklin MD Active HYDROCODONE-ACETAMINOPHEN 5-325 MG TABS 1 po q 6hr PRN Pain 2013 HYDROCODONE-ACETAMINOPHEN 21369998586 No Longer Active Lenora Conklin MD Active PHENAZOPYRIDINE HCL 200 MG TABS take 1 tab po TID for bladder pa in PHENAZOPYRIDINE HCL 62319654833 No Longer Active Checo Joshua Active CIPRO 500 MG TAB 1 tablet by mouth twice daily CIPROFLOXACIN HCL 63237020243 No Longer Active Dangelo Rangel MD Active HYDROCODONE-ACETAMINOPHEN 5-325 MG TABS 1/2 to 1 po q 4 hour s prn cough HYDROCODONE-ACETAMINOPHEN 00802798615 No Longer Activ e Dangelo Rangel MD Active BACTRIM DS 800-160 MG TABS 1 po BID x 7 days 0 SULFAMETHOXAZOLE-TRIMETHOPRIM 54326722274 No Longer Active Checo Conklin MD Active PREDNISONE 20 MG TAB 2 tabs daily for 3 days, 1 t ab daily for 3 days, 1/2 tab daily for 2 days PREDNISONE 71085816591 No Longer Active Checo Conklin MD Active TRIAMCINOLONE ACETONIDE 0.1 % OINT Apply to affected a reas TID for up to 2 weeks TRIAMCINOLONE ACETONIDE 29818465506 No Longer A ctive Checo Conklin MD Active CEFDINIR 300 MG CAPS by mouth twice a day CEFDI JAZZY 88627404213 No Longer Active Dangelo Rangel MD Active BUPROPION HCL (SMOKING DETER) 150 MG [id number] 1 a day for 1 week then 1 twice a day BUPROPION HCL (SMOKING DETER) 53186232709 No Lo nger Active Checo Conklin MD Active SIMVASTATIN 20 MG TABS 1 po qd SIMVASTATIN 1968941252 5 Active Checo Conklin MD Active CHANTIX STARTING MONTH KARTHIK 0.5 MG X 11 & 1 MG X 42 TAB S 0.5mg daily for 3 days, then 0.5mg BID for 4 days, then 1mg BID VARENICLINE TARTRATE 66269189881 No Longer Active Checo Conklin MD Activ e XANAX 0.5 MG TABS 1 po BID PRN anxiety ALPRAZOLAM 99232641280 Active Checo Conklin MD Active CONCERTA 18 MG CR-TABS 1 po q a.m. METHYLPHENID ATE HCL 30889698113 No Longer Active Checo Conklin MD Active AMBIEN 5 MG TAB 1 po qHS PRN Insomnia ZOLPIDEM TARTRATE 13179193548 Active Checo Conklin MD Active TRAZODONE HCL 100 MG TAB 0.5 to 1 po qHS PRN Insomnia TRAZODONE HCL 42077258343 No Longer Active Checo Conklin MD Acti ve FIORICET 325-50-40 MG TAB 1 tablet by mouth four times daily as needed DRXINVMNAWTIM-LMNE-NDOBVNWAMG 57718453947 No Longer Active Checo Conklin MD Active PHENERGAN CREAM* 25mg applied to wrist q6hr PRN Nausea PHENERGAN CREAM* No Longer Active Checo Conklin MD A ctive FLONASE 50 MCG/ACT SUSP 1 spray each nostril am and hs FLUTICASONE PROPIONATE 48160025261 No Longer Active Checo Conklin MD Activ e ANTIPYRINE-BENZOCAINE 5.4-1.4 % SOLN 1-2 drops in affected ear BENZOCAINE-ANTIPYRINE 86734763426 No Longer Active Checo Conklin MD Active CEFDINIR 300 MG CAPS 1 po bid CEFDINIR 63198961 120 No Longer Active Checo Conklin MD Active PREDNISONE 20 MG TAB 2 tabs daily for 3 days, 1 t ab daily for 3 days, 1/2 tab daily for 2 days PREDNISONE 26550847572 No Longer Active Aracelis Conklin MD Active AZITHROMYCIN 250 MG TABS 2 po qd x 1 day, then 1 po qd x 4 days AZITHROMYCIN 81801121278 No Longer Active Checo Conklin MD Active PREDNISONE 20 MG TAB 2 tabs daily for 3 days, 1 t ab daily for 3 days, 1/2 tab daily for 2 days PREDNISONE 34494642654 No Longer Active Checo Conklin MD Active ZITHROMAX Z-KARTHIK 250 MG TABS 2 today, then 1 daily for 4 days 201 09/18/28 AZITHROMYCIN 25845602040 No Longer Active Pual Hamlin MD Active FOCALIN XR 10 MG [id number] 1 po q a.m. D EXMETHYLPHENIDATE HCL 41909851087 No Longer Active Paul Hamlin MD Activ e PERCOCET 10-325 MG TABS 1 tablet every 6 hours as needed for pain OXYCODONE-ACETAMINOPHEN 42191796600 No Longer Active Paul Hamlin MD Active LORTAB 5 5-500 MG TABS 1/2 to 1 tablet by mouth flaquito ry 4 hours as needed for pain HYDROCODONE-ACETAMINOPHEN 57477410893 No Longer Active Checo Conklin MD Active FOCALIN XR 15 MG [id number] 1 po q a.m. D EXMETHYLPHENIDATE HCL 63633743731 No Longer Active Checo Conklin MD Activ e ZOFRAN ODT 4 MG TBDP 1 po q6hr PRN Nausea ONDAN SETRON 21438374437 No Longer Active Checo Conklin MD Active PERCOCET 5-325 MG TABS 1 tablet by mouth every 6 hours as needed OXYCODONE-ACETAMINOPHEN 53864434084 No Longer Active Checo Conklin MD Active PYRIDIUM 200 MG TABS take 1 tab po TID prn urinary pain. 0 PHENAZOPYRIDINE HCL 05904407817 No Longer Active Checo Conklin MD Active FLUCONAZOLE 150 MG TABS take 1 tab po qday once 04/06 FLUCONAZOLE 33719504864 No Longer Active Dangelo Rangel MD Acti ve CIPRO 500 MG TAB 1 tablet by mouth twice daily CIPROFLOXACIN HCL 41158336185 No Longer Active Dangelo Rangel MD Active PHENERGAN CREAM* 25mg applied to wrist q6hr PRN Nausea PHENERGAN CREAM* Inactive ANTIPYRINE-BENZOCAINE 5.4-1.4 % SOLN 1-2 drops in affected ear ANTIPYRINE-BENZOCAINE 5.4-1.4 % SOLN 657907 BENZOCAINE-ANTIPYRINE I nactive BACTRIM DS 800-160 MG TAB 1 tab by mouth twice daily 2 BACTRIM DS 800-160 MG TAB 582300 TRIMETHOPRIM-SULFAMETHOXAZOLE Inac tive BACTRIM DS 800-160 MG TABS 1 po BID x 7 days 0 BACTRIM DS 800-160 MG TABS 19820918 SULFAMETHOXAZOLE-TRIMETHOPRIM Inactive CIPRO 500 MG TAB 1 tablet by mouth twice daily CIPRO 500 MG TAB 793491 CIPROFLOXACIN HCL Inactive CIPRO 500 MG TAB 1 tablet by mouth twice daily CIPRO 500 MG TAB 970589 CIPROFLOXACIN HCL Inactive FIORICET 325-50-40 MG TAB 1 tablet by mouth four times daily as needed FIORICET 325-50-40 MG TAB ACETAMINOPHEN-C AFF-BUTALBITAL Inactive FLAGYL 500 MG TAB 1 tablet by mouth bid FLAGYL 500 MG TAB 988276 METRONIDAZOLE Inactive IBUPROFEN 800 MG TABS 1 tab every 8 hours with food 31/03/21 IBUPROFEN 800 MG TABS 522873 IBUPROFEN Inactive MAGNESIUM CITRATE 1.745 GM/30ML ORAL SOLN 150ml po BID PRN C onstipation MAGNESIUM CITRATE 1.745 GM/30ML ORAL SOLN 419677 0 MAGNESIUM CITRATE Inactive METOCLOPRAMIDE HCL 10 MG ORAL TABS take one PO tid PRN nausea 20 29/12/14 METOCLOPRAMIDE HCL 10 MG ORAL TABS 656686 METOCLOPRAMID E HCL Inactive PERCOCET 5-325 MG TABS 1 tablet by mouth every 6 hours as needed PERCOCET 5-325 MG TABS 0879771 OXYCODONE-ACETAMINOPHEN I nactive PHENAZOPYRIDINE HCL 200 MG TABS take 1 tab po TID for bladder pa in PHENAZOPYRIDINE HCL 200 MG TABS 6933986 PHENAZOPYRIDINE HCL Inactive PREDNISONE 20 MG TAB 2 tabs daily for 3 days, 1 t ab daily for 3 days, 1/2 tab daily for 2 days PREDNISONE 20 MG TAB 238185 PREDNISON E Inactive PREDNISONE 20 MG TAB 2 tabs daily for 3 days, 1 t ab daily for 3 days, 1/2 tab daily for 2 days PREDNISONE 20 MG TAB 689696 PREDNISON E Inactive PREDNISONE 20 MG TAB 2 tabs daily for 3 days, 1 t ab daily for 3 days, 1/2 tab daily for 2 days PREDNISONE 20 MG TAB 118120 PREDNISON E Inactive PYRIDIUM 200 MG TABS take 1 tab po TID prn urinary pain. 0 PYRIDIUM 200 MG TABS 8090517 PHENAZOPYRIDINE HCL Inactive REGLAN 10 MG TAB 1 po TID PRN Nausea REGLAN 10 MG TAB 931302 METOCLOPRAMIDE HCL Inactive TRAZODONE HCL 100 MG TAB 0.5 to 1 po qHS PRN Insomnia TRAZODONE HCL 100 MG TAB 226670 TRAZODONE HCL Inactive TRIAMCINOLONE ACETONIDE 0.1 % OINT Apply to affected a reas TID for up to 2 weeks TRIAMCINOLONE ACETONIDE 0.1 % OINT 012667 6 TRIAMCINOLONE ACETONIDE Inactive LORTAB 5 5-500 MG TABS 1/2 to 1 tablet by mouth flaquito ry 4 hours as needed for pain LORTAB 5 5-500 MG TABS HYDROCODONE-A CETAMINOPHEN Inactive TERBINAFINE HCL 250 MG ORAL TABS take one table PO one time abran y TERBINAFINE HCL 250 MG ORAL TABS 328801 TERBINAFINE HCL Inactive SUMATRIPTAN SUCCINATE 100 MG ORAL TABS Take one PRN for migrane SUMATRIPTAN SUCCINATE 100 MG ORAL TABS 645242 SUMATRIPT AN SUCCINATE Inactive DIFLUCAN 150 MG TAB 1 tablet by mouth if needed, hold until symptoms start DIFLUCAN 150 MG TAB 707259 FLUCONAZOLE Inactive FLUCONAZOLE 150 MG TABS take 1 tab po qday once 04/06 FLUCONAZOLE 150 MG TABS 947620 FLUCONAZOLE Inactive DICLOFENAC SODIUM 75 MG TBEC 1 tablet by mouth twice daily P RN Knee pain DICLOFENAC SODIUM 75 MG TBEC 078372 DICLOFENAC S ODIUM Inactive LAMISIL 250 MG TAB 1 po qd LAMISIL 250 MG TAB 540299 TERBINAFINE HCL Inactive AZITHROMYCIN 250 MG TABS 2 po qd x 1 day, then 1 po qd x 4 days AZITHROMYCIN 250 MG TABS 9220099 AZITHROMYCIN Inactiv e AZITHROMYCIN 250 MG TABS 2 po qd x 1 day, then 1 po qd x 4 days AZITHROMYCIN 250 MG TABS 9525007 AZITHROMYCIN Inactiv e AZITHROMYCIN 250 MG TABS 2 po qd x 1 day, then 1 po qd x 4 days AZITHROMYCIN 250 MG TABS 0251846 AZITHROMYCIN Inactiv e BACTROBAN 2 % CREAM Apply to affected area BID for up to 10 days BACTROBAN 2 % CREAM 709857 MUPIROCIN CALCIUM Inactive CEFDINIR 300 MG CAPS [...] PRN Nausea ZOFRAN ODT 4 MG TBDP 400882 ONDANSETRON Inactive ONDANSETRON [address] one tablet on tongue and allow to dissolve every 6 hours as needed for vomitting ON DANSETRON 8 MG ORAL TBDP 133135 ONDANSETRON Inactive CONCERTA 18 MG CR-TABS 1 po q a.m. CONCERTA 18 MG CR-TABS METHYLPHENIDATE HCL Inactive COMPRO 25 MG RECTAL SUPP insert or apply one supposit ory rectally as directed every 12 hours as needed for nausea COMP RO 25 MG RECTAL SUPP 284075 PROCHLORPERAZINE Inactive ZITHROMAX Z-KARTHIK 250 MG TABS 2 today, then 1 daily for 4 days 201 09/18/28 ZITHROMAX Z-KARTHIK 250 MG TABS 4625844 AZITHROMYCIN Inac tive FLONASE 50 MCG/ACT SUSP 1 spray each nostril am and hs FLONASE 50 MCG/ACT SUSP FLUTICASONE PROPIONATE Inactive PERCOCET 10-325 MG TABS 1 tablet every 6 hours as needed for pain PERCOCET 10-325 MG TABS 3472081 OXYCODONE-ACETAMINOPHEN Inactive HYDROCODONE-ACETAMINOPHEN 5-325 MG TABS 1 po q 6hr PRN Pain 2013 HYDROCODONE-ACETAMINOPHEN 5-325 MG TABS 181599 HYDROCODONE-ACETAMINOPHEN Inactive HYDROCODONE-ACETAMINOPHEN 5-325 MG TABS 0.5 to 1 tab b y mouth every 6 hours as needed HYDROCODONE-ACETAMINOPHEN 5-325 MG TABS 8 56504 HYDROCODONE-ACETAMINOPHEN Inactive HYDROCODONE-ACETAMINOPHEN 5-325 MG TABS 1 tab by mouth every 6 hours as needed HYDROCODONE-ACETAMINOPHEN 5-325 MG TABS 175555 HYDROCODONE-ACETAMINOPHEN Inactive HYDROCODONE-ACETAMINOPHEN 5-325 MG TABS 1/2 to 1 po q 4 hour s prn cough HYDROCODONE-ACETAMINOPHEN 5-325 MG TABS 598777 HYDROCODONE-ACETAMINOPHEN Inactive BUPROPION HCL ER (SR) 100 MG ORAL [id number] take one t ablet by mouth one time daily for one week then take 1 two times daily BUPROPION HCL ER (SR) 100 MG ORAL [id number] BUPROPION HCL Inacti ve FOCALIN XR 10 MG [id number] 1 po q a.m. F OCALIN XR 10 MG [id number] DEXMETHYLPHENIDATE HCL Inactive FOCALIN XR 15 MG [id number] 1 po q a.m. F OCALIN XR 15 MG [id number] DEXMETHYLPHENIDATE HCL Inactive TRAVEL SICKNESS 25 MG ORAL CHEW chew and swallow one t ablet every 6 hours as needed TRAVEL SICKNESS 25 MG ORAL CHEW 826041 MECLIZINE HCL Inactive CHANTIX STARTING MONTH KARTHIK [...] ... - Chemistry sodium, serum 141 mmol/L 505-783 3770/01/26 carbon dioxide, venous blood 30.0 mmol/L 21.0-32 .0 potassium, serum 4.0 mmol/L 3.5-5.2 chloride, serum 105 mmol/L 98-107 blood glucose 85 mg/dL 65-110 urea nitrogen, blood 9 mg/dL 7-18 creatinine, serum 0.66 mg/dL 0.55-1.30 alanine aminotransferase (SGPT), serum 31 U/L 12-78 aspartate aminotransferase (SGOT), serum 21 U/L 15-37 calcium, serum 8.2 mg/dL 8.5-10.1 bilirubin, serum, total 1.10 mg/dL 0.00-1.00 cholesterol, serum 178 mg/dL 371-792 7877/01/26 triglyceride, serum, fasting 149 mg/dL 30-200 HDL [...] 5.0-8.5 Encounters Code Encounter Date Provider Facility CPT-20293 Level 3 Est. Patient 11:28:51 RUSSIAN HISTORY PROFESSOR Efren almendarez APRN [facility] CPT-58418 Level 4 Est. Patient 13:55:46 RUSSIAN HISTORY PROFESSOR Checo Conklin MD [facility] CPT-07343 Level 4 Est. Patient 17:10:53 CDT Checo Conklin MD [facility] CPT-03759 Level 3 Est. Patient 15:56:22 CDT Checo Conklin MD [facility] CPT-78050 Level 3 Est. Patient 15:29:07 CDT Checo Conklin MD [facility] CPT-43610 Level 3 Est. Patient 14:38:41 CDT Checo Conklin MD [facility] CPT-78629 Level 3 Est. Patient 15:22:03 RUSSIAN HISTORY PROFESSOR Thomas reynolds DO [facility] CPT-13363 Level 3 Est. Patient 13:34:17 RUSSIAN HISTORY PROFESSOR Checo Conklin MD [facility] CPT-45011 Level 3 Est. Patient 12:29:32 CDT Dangelo arroyo MD [facility] CPT-81944 Level 3 Est. Patient 16:53:02 CDT Checo Conklin MD [facility] CPT-88963 Level 3 Est. Patient 16:37:13 CDT Checo Conklin MD [facility] CPT-20772 Level 3 Est. Patient 16:16:59 CDT Paul Hamlin MD [facility] CPT-43899 Level 3 Est. Patient 14:20:13 CDT Dangelo arroyo MD [facility] CPT-26777 Level 4 Est. Patient 11:29:33 CDT Checo Conklin MD [facility] CPT-57375 Level 3 Est. Patient 17:08:31 CDT Checo Conklin MD [facility] CPT-11919 Level 3 Est. Patient 16:50:42 RUSSIAN HISTORY PROFESSOR Checo Conklin MD [facility] CPT-12112 Level 4 Est. Patient 09:26:08 RUSSIAN HISTORY PROFESSOR Checo Conklin MD [facility] CPT-96382 Level 3 Est. Patient 11:37:10 CDT Checo Conklin MD [facility] CPT-46380 Level 4 Est. Patient 14:07:38 CDT Checo Conklin MD [facility] CPT-51241 Level 3 Est. Patient 09:54:41 CDT Checo Conklin MD [facility] CPT-09870 Level 3 Est. Patient 11:10:54 CDT Paul Hamlin MD [facility] CPT-81333 Level 3 Est. Patient 14:16:56 RUSSIAN HISTORY PROFESSOR Checo Conklin MD [facility] CPT-84785 Level 3 Est. Patient 11:04:11 RUSSIAN HISTORY PROFESSOR Checo Conklin MD [facility] CPT-48658 Level 3 Est. Patient 17:09:26 CDT Dangelo arroyo MD [facility] CPT-00267 Level 3 Est. Patient 16:54:37 CDT Checo Conklin MD [facility] Procedures Code Procedure Name Date Entry Date Standard Desc ription CPT-OV Office Visit 11:31:28 CDT CPT-55941 Tubersol 09:39:29 CDT CPT-J2550 Phenergan 25 mg (Promethazine) 13:59:02 RUSSIAN HISTORY PROFESSOR CPT-J1885 Toradol 60 mg (Ketorolac) 13:59:02 RUSSIAN HISTORY PROFESSOR 2012
--- OUTSIDE RECORDS SUMMARY | 2019-09-29 02:13 | XMS REPORT | Clinical Summary ---
Author Author Admin, Bethany Gonzales Organization [facility] Address Unknown Phone Unavailable Allergies, Adverse [...] vulvovaginitis, unspecified Pharyngitis 462 Active Jimarine Medel MID LEVEL CLINICIAN Acute pharyngitis Cough 786.2 Active Efren Medel [...] 1 tablet by mouth qod FLUCONA ZOLE 97091646540 Active Jillina Frazell [facility] LEVEL CLINICIAN Active CLARITIN 10 MG TAB 1 tablet by mouth daily as needed for allergies LORATADINE 11306878513 Active Jillina Frazell MID LEVEL CLINICIAN Active AZITHROMYCIN 250 MG TABS 2 po qd x 1 day, then 1 po qd x 4 days AZITHROMYCIN 20457358667 No Longer Active Jillina Frazell MID LEVEL CLINICIAN Active FLAGYL 500 MG TAB 1 tablet by mouth bid METRONI DAZOLE 82922950543 No Longer Active Checo Conklin MD Active FOCALIN XR 10 MG ORAL [id number] 1 po q a.m. DEX METHYLPHENIDATE HCL 25871027675 Active Checo Conklin MD Active MAGNESIUM CITRATE 1.745 GM/30ML ORAL SOLN 150ml po BID PRN C onstipation MAGNESIUM CITRATE 01118819954 No Longer Active Checo Conklin MD Active BACTROBAN 2 % CREAM Apply to affected area BID for up to 10 days MUPIROCIN CALCIUM 14035114352 No Longer Active Checo Conklin MD Active HYDROCODONE-ACETAMINOPHEN 5-325 MG TABS 1 tab by mouth every 6 hours as needed HYDROCODONE-ACETAMINOPHEN 87339887457 No Longer Activ e Checo Conklin MD Active IBUPROFEN 800 MG TABS 1 tab every 8 hours with food 31/03/21 IBUPROFEN 17782368654 No Longer Active Checo Conklin MD Activ e DIFLUCAN 150 MG TAB 1 tablet by mouth if needed, hold until symptoms start FLUCONAZOLE 85305825140 No Longer Active Checo Ortiz MD Active BACTRIM DS 800-160 MG TAB 1 tab by mouth twice daily 2 TRIMETHOPRIM-SULFAMETHOXAZOLE 15276751532 No Longer Active Corry leong LPN Active MIRALAX PACK 1 po qd PRN Constipation POLYETHYL JOEL GLYCOL 3350 53844675195 Active Checo Conklin MD Active HYDROCODONE-ACETAMINOPHEN 5-325 MG TABS 0.5 to 1 tab b y mouth every 6 hours as needed HYDROCODONE-ACETAMINOPHEN 10247067323 No Longer Active Checo Conklin MD Active ONDANSETRON [address] one tablet on tongue and allow to dissolve every 6 hours as needed for vomitting ONDANSETRO N 82868510689 No Longer Active Checo Conklin MD Active COMPRO 25 MG RECTAL SUPP insert or apply one supposit ory rectally as directed every 12 hours as needed for nausea PROCHLORPERA ZINE 39843890364 No Longer Active Checo Conklin MD Active SUMATRIPTAN SUCCINATE 100 MG ORAL TABS Take one PRN for migrane SUMATRIPTAN SUCCINATE 85697118359 No Longer Active Checo Conklin MD Active TRAVEL SICKNESS 25 MG ORAL CHEW chew and swallow one t ablet every 6 hours as needed MECLIZINE HCL 97024839795 No Longer Active Joe Conklin MD Active BUPROPION HCL ER (SR) 100 MG ORAL [id number] take one t ablet by mouth one time daily for one week then take 1 two times daily BUPROPION HCL 08975525325 No Longer Active Checo Conklin MD Activ e TERBINAFINE HCL 250 MG ORAL TABS take one table PO one time abran y TERBINAFINE HCL 26446821426 No Longer Active Checo Conklin MD Active METOCLOPRAMIDE HCL 10 MG ORAL TABS take one PO tid PRN nausea 20 29/12/14 METOCLOPRAMIDE HCL 89487012550 No Longer Active Checo Conklin MD Active DICLOFENAC SODIUM 75 MG TBEC 1 tablet by mouth twice daily P RN Knee pain DICLOFENAC SODIUM 56424531909 No Longer Active Checo Conklin MD Active LAMISIL 250 MG TAB 1 po qd TERBINAFINE HCL 548 93995336 No Longer Active Checo Conklin MD Active REGLAN 10 MG TAB 1 po TID PRN Nausea METOCLOPRA MIDE HCL 39920725794 No Longer Active Checo Conklin MD Active CELEXA 20 MG TABS 1 tablet by mouth daily CITALOPRAM HYDROBROMIDE 59421617508 No Longer Active Checo Conklin MD Activ e AZITHROMYCIN 250 MG TABS 2 po qd x 1 day, then 1 po qd x 4 days AZITHROMYCIN 85919158912 No Longer Active Checo Conklin MD Active HYDROCODONE-ACETAMINOPHEN 5-325 MG TABS 1 po q 6hr PRN Pain 2013 HYDROCODONE-ACETAMINOPHEN 64940442652 No Longer Active Lenora Conklin MD Active PHENAZOPYRIDINE HCL 200 MG TABS take 1 tab po TID for bladder pa in PHENAZOPYRIDINE HCL 22819312350 No Longer Active Checo Joshua Active CIPRO 500 MG TAB 1 tablet by mouth twice daily CIPROFLOXACIN HCL 95483036012 No Longer Active Dangelo Rangel MD Active HYDROCODONE-ACETAMINOPHEN 5-325 MG TABS 1/2 to 1 po q 4 hour s prn cough HYDROCODONE-ACETAMINOPHEN 87859420848 No Longer Activ e Dangelo Rangel MD Active BACTRIM DS 800-160 MG TABS 1 po BID x 7 days 0 SULFAMETHOXAZOLE-TRIMETHOPRIM 10405393830 No Longer Active Checo Conklin MD Active PREDNISONE 20 MG TAB 2 tabs daily for 3 days, 1 t ab daily for 3 days, 1/2 tab daily for 2 days PREDNISONE 24353337980 No Longer Active Checo Conklin MD Active TRIAMCINOLONE ACETONIDE 0.1 % OINT Apply to affected a reas TID for up to 2 weeks TRIAMCINOLONE ACETONIDE 87423706037 No Longer A ctive Checo Conklin MD Active CEFDINIR 300 MG CAPS by mouth twice a day CEFDI JAZZY 91552329265 No Longer Active Dangelo Rangel MD Active BUPROPION HCL (SMOKING DETER) 150 MG [id number] 1 a day for 1 week then 1 twice a day BUPROPION HCL (SMOKING DETER) 44454092924 No Lo nger Active Checo Conklin MD Active SIMVASTATIN 20 MG TABS 1 po qd SIMVASTATIN 3160446556 5 Active Checo Conklin MD Active CHANTIX STARTING MONTH KARTHIK 0.5 MG X 11 & 1 MG X 42 TAB S 0.5mg daily for 3 days, then 0.5mg BID for 4 days, then 1mg BID VARENICLINE TARTRATE 02584095786 No Longer Active Checo Conklin MD Activ e XANAX 0.5 MG TABS 1 po BID PRN anxiety ALPRAZOLAM 75476363577 Active Checo Conklin MD Active CONCERTA 18 MG CR-TABS 1 po q a.m. METHYLPHENID ATE HCL 65950265739 No Longer Active Checo Conklin MD Active AMBIEN 5 MG TAB 1 po qHS PRN Insomnia ZOLPIDEM TARTRATE 83651640294 Active Checo Conklin MD Active TRAZODONE HCL 100 MG TAB 0.5 to 1 po qHS PRN Insomnia TRAZODONE HCL 11306949105 No Longer Active Checo Conklin MD Acti ve FIORICET 325-50-40 MG TAB 1 tablet by mouth four times daily as needed [id number] 14078895307 No Longer Active Checo Conklin MD Active PHENERGAN CREAM* 25mg applied to wrist q6hr PRN Nausea PHENERGAN CREAM* No Longer Active Checo Conklin MD A ctive FLONASE 50 MCG/ACT SUSP 1 spray each nostril am and hs FLUTICASONE PROPIONATE 34540471418 No Longer Active Checo Conklin MD Activ e ANTIPYRINE-BENZOCAINE 5.4-1.4 % SOLN 1-2 drops in affected ear BENZOCAINE-ANTIPYRINE 76484641793 No Longer Active Checo Conklin MD Active CEFDINIR 300 MG CAPS 1 po bid CEFDINIR 15169914 120 No Longer Active Checo Conklin MD Active PREDNISONE 20 MG TAB 2 tabs daily for 3 days, 1 t ab daily for 3 days, 1/2 tab daily for 2 days PREDNISONE 11752290763 No Longer Active Aracelis Conklin MD Active AZITHROMYCIN 250 MG TABS 2 po qd x 1 day, then 1 po qd x 4 days AZITHROMYCIN 08104586821 No Longer Active Checo Conklin MD Active PREDNISONE 20 MG TAB 2 tabs daily for 3 days, 1 t ab daily for 3 days, 1/2 tab daily for 2 days PREDNISONE 02675100691 No Longer Active Checo Conklin MD Active ZITHROMAX Z-KARTHIK 250 MG TABS 2 today, then 1 daily for 4 days 201 09/18/28 AZITHROMYCIN 22201975812 No Longer Active Paul Hamlin MD Active FOCALIN XR 10 MG [id number] 1 po q a.m. D EXMETHYLPHENIDATE HCL 56184642214 No Longer Active Paul Hamlin MD Activ e PERCOCET 10-325 MG TABS 1 tablet every 6 hours as needed for pain OXYCODONE-ACETAMINOPHEN 77083340010 No Longer Active Paul Hamlin MD Active LORTAB 5 5-500 MG TABS 1/2 to 1 tablet by mouth flaquito ry 4 hours as needed for pain HYDROCODONE-ACETAMINOPHEN 05928654054 No Longer Active Checo Conklin MD Active FOCALIN XR 15 MG [id number] 1 po q a.m. D EXMETHYLPHENIDATE HCL 29633121638 No Longer Active Checo Conklin MD Activ e ZOFRAN ODT 4 MG TBDP 1 po q6hr PRN Nausea ONDAN SETRON 02470712934 No Longer Active Checo Conklin MD Active PERCOCET 5-325 MG TABS 1 tablet by mouth every 6 hours as needed OXYCODONE-ACETAMINOPHEN 95439916462 No Longer Active Checo Conklin MD Active PYRIDIUM 200 MG TABS take 1 tab po TID prn urinary pain. 0 PHENAZOPYRIDINE HCL 57493916077 No Longer Active Checo Conklin MD Active FLUCONAZOLE 150 MG TABS take 1 tab po qday once 04/06 FLUCONAZOLE 37418674789 No Longer Active Dangelo Rangel MD Acti ve CIPRO 500 MG TAB 1 tablet by mouth twice daily CIPROFLOXACIN HCL 12249542932 No Longer Active Dangelo Rangel MD Active PYRIDIUM 200 MG TABS take 1 tab po TID prn urinary pain. 0 PYRIDIUM 200 MG TABS 1482546 PHENAZOPYRIDINE HCL Inactive PERCOCET 5-325 MG TABS 1 tablet by mouth every 6 hours as needed PERCOCET 5-325 MG TABS 0368017 OXYCODONE-ACETAMINOPHEN I nactive ZOFRAN ODT 4 MG TBDP 1 po q6hr PRN Nausea ZOFRAN ODT 4 MG TBDP 104339 ONDANSETRON Inactive FOCALIN XR 15 MG [id number] 1 po q a.m. F OCALIN XR 15 MG [id number] DEXMETHYLPHENIDATE HCL Inactive LORTAB 5 5-500 MG TABS 1/2 to 1 tablet by mouth flaquito ry 4 hours as needed for pain LORTAB 5 5-500 MG TABS HYDROCODONE-A CETAMINOPHEN Inactive PERCOCET 10-325 MG TABS 1 tablet every 6 hours as needed for pain PERCOCET 10-325 MG TABS 0305103 OXYCODONE-ACETAMINOPHEN Inactive FOCALIN XR 10 MG [id number] 1 po q a.m. F OCALIN XR 10 MG [id number] DEXMETHYLPHENIDATE HCL Inactive CEFDINIR 300 MG CAPS 1 po bid CEFDINIR 300 MG CAPS 20 0346 CEFDINIR Inactive ANTIPYRINE-BENZOCAINE 5.4-1.4 % SOLN 1-2 drops in affected ear ANTIPYRINE-BENZOCAINE 5.4-1.4 % SOLN 399839 BENZOCAINE-ANTIPYRINE I nactive FLONASE 50 MCG/ACT SUSP [...] PRN Insomnia TRAZODONE HCL 100 MG TAB 805009 TRAZODONE HCL Inactive CONCERTA 18 MG CR-TABS [...] s prn cough HYDROCODONE-ACETAMINOPHEN 5-325 MG TABS 025733 HYDROCODONE-ACETAMINOPHEN Inactive PHENAZOPYRIDINE HCL 200 MG TABS take 1 tab po TID for bladder pa in PHENAZOPYRIDINE HCL 200 MG TABS 9543862 PHENAZOPYRIDINE HCL Inactive HYDROCODONE-ACETAMINOPHEN 5-325 MG TABS 1 po q 6hr PRN Pain 2013 HYDROCODONE-ACETAMINOPHEN 5-325 MG TABS 372067 HYDROCODONE-ACETAMINOPHEN Inactive CELEXA 20 MG TABS 1 tablet by mouth daily CELEXA 20 MG TABS 291580 CITALOPRAM HYDROBROMIDE Inactive REGLAN 10 MG TAB 1 po TID PRN Nausea REGLAN 10 MG TAB 312572 METOCLOPRAMIDE HCL Inactive LAMISIL 250 MG TAB 1 po qd LAMISIL 250 MG TAB 916804 TERBINAFINE HCL Inactive DICLOFENAC SODIUM 75 MG TBEC 1 tablet by mouth twice daily P RN Knee pain DICLOFENAC SODIUM 75 MG TBEC 321845 DICLOFENAC S ODIUM Inactive METOCLOPRAMIDE HCL 10 MG ORAL TABS take one PO tid PRN nausea 20 29/12/14 METOCLOPRAMIDE HCL 10 MG ORAL TABS 257798 METOCLOPRAMID E HCL Inactive TERBINAFINE HCL 250 MG ORAL TABS take one table PO one time abran y TERBINAFINE HCL 250 MG ORAL TABS 643490 TERBINAFINE HCL Inactive BUPROPION HCL ER (SR) 100 MG ORAL [id number] take one t ablet by mouth one time daily for one week then take 1 two times daily BUPROPION HCL ER (SR) 100 MG ORAL [id number] BUPROPION HCL Inacti ve TRAVEL SICKNESS 25 MG ORAL CHEW chew and swallow one t ablet every 6 hours as needed TRAVEL SICKNESS 25 MG ORAL CHEW 935084 MECLIZINE HCL Inactive SUMATRIPTAN SUCCINATE 100 MG ORAL TABS Take one PRN for migrane SUMATRIPTAN SUCCINATE 100 MG ORAL TABS 730788 SUMATRIPT AN SUCCINATE Inactive COMPRO 25 MG RECTAL SUPP insert or apply one supposit ory rectally as directed every 12 hours as needed for nausea COMP RO 25 MG RECTAL SUPP 633302 PROCHLORPERAZINE Inactive ONDANSETRON [address] one tablet on tongue and allow to dissolve every 6 hours as needed for vomitting ON DANSETRON 8 MG ORAL TBDP 293672 ONDANSETRON Inactive HYDROCODONE-ACETAMINOPHEN 5-325 MG TABS 0.5 to 1 tab b y mouth every 6 hours as needed HYDROCODONE-ACETAMINOPHEN 5-325 MG TABS 8 36989 HYDROCODONE-ACETAMINOPHEN Inactive BACTRIM DS 800-160 MG TAB 1 tab by mouth twice daily 2 BACTRIM DS 800-160 MG TAB 950645 TRIMETHOPRIM-SULFAMETHOXAZOLE Inac tive DIFLUCAN 150 MG TAB 1 tablet by mouth if needed, hold until symptoms start DIFLUCAN 150 MG TAB 320383 FLUCONAZOLE Inactive IBUPROFEN 800 MG TABS 1 tab every 8 hours with food 31/03/21 IBUPROFEN 800 MG TABS 950637 IBUPROFEN Inactive HYDROCODONE-ACETAMINOPHEN 5-325 MG TABS 1 tab by mouth every 6 hours as needed HYDROCODONE-ACETAMINOPHEN 5-325 MG TABS 634055 HYDROCODONE-ACETAMINOPHEN Inactive BACTROBAN 2 % CREAM Apply to affected area BID for up to 10 days BACTROBAN 2 % CREAM 302066 MUPIROCIN CALCIUM Inactive MAGNESIUM CITRATE 1.745 GM/30ML ORAL SOLN 150ml po BID PRN C onstipation MAGNESIUM CITRATE 1.745 GM/30ML ORAL SOLN 515521 0 MAGNESIUM CITRATE Inactive CIPRO 500 MG TAB 1 tablet by mouth twice daily CIPRO 500 MG TAB 942153 CIPROFLOXACIN HCL Inactive FLUCONAZOLE 150 MG TABS take 1 tab po qday once 04/06 FLUCONAZOLE 150 MG TABS 793222 FLUCONAZOLE Inactive ZITHROMAX Z-KARTHIK 250 MG TABS 2 today, then 1 daily for 4 days 201 09/18/28 ZITHROMAX Z-KARTHIK 250 MG TABS 6614475 AZITHROMYCIN Inac tive PREDNISONE 20 MG TAB 2 tabs daily for 3 days, 1 t ab daily for 3 days, 1/2 tab daily for 2 days PREDNISONE 20 MG TAB 567201 PREDNISON E Inactive AZITHROMYCIN 250 MG TABS 2 po qd x 1 day, then 1 po qd x 4 days AZITHROMYCIN 250 MG TABS 8630031 AZITHROMYCIN Inactiv e PREDNISONE 20 MG TAB 2 tabs daily for 3 days, 1 t ab daily for 3 days, 1/2 tab daily for 2 days PREDNISONE 20 MG TAB 891885 PREDNISON E Inactive CEFDINIR 300 MG CAPS by mouth twice a day CEFDINIR 300 MG CAPS 646143 CEFDINIR Inactive TRIAMCINOLONE ACETONIDE 0.1 % OINT Apply to affected a reas TID for up to 2 weeks TRIAMCINOLONE ACETONIDE 0.1 % OINT 747511 6 TRIAMCINOLONE ACETONIDE Inactive PREDNISONE 20 MG TAB 2 tabs daily for 3 days, 1 t ab daily for 3 days, 1/2 tab daily for 2 days PREDNISONE 20 MG TAB 241532 PREDNISON E Inactive BACTRIM DS 800-160 MG TABS 1 po BID x 7 days 0 BACTRIM DS 800-160 MG TABS 684370 SULFAMETHOXAZOLE-TRIMETHOPRIM Inactive CIPRO 500 MG TAB 1 tablet by mouth twice daily CIPRO 500 MG TAB 515216 CIPROFLOXACIN HCL Inactive AZITHROMYCIN 250 MG TABS 2 po qd x 1 day, then 1 po qd x 4 days AZITHROMYCIN 250 MG TABS 1297192 AZITHROMYCIN Inactiv e FLAGYL 500 MG TAB 1 tablet by mouth bid FLAGYL 500 MG TAB 376303 METRONIDAZOLE Inactive AZITHROMYCIN 250 MG TABS 2 po qd x 1 day, then 1 po qd x 4 days AZITHROMYCIN 250 MG TABS 5531291 AZITHROMYCIN Inactiv e Immunizations Vaccine Administration Date Value Standard Michael cription TB-PPD (tuberculin purified protein derivative), intra dermal administration Tubersol Vital Signs Date Name Value Unit Range Description blood pressure, diastolic - 8462-4 70 mm[Hg] BP mahtew blood pressure, systolic - 8480-6 112 mm[Hg] [...] ... - Chemistry sodium, serum 141 mmol/L 167-529 7544/01/26 carbon dioxide, venous blood 30.0 mmol/L 21.0-32 .0 potassium, serum 4.0 mmol/L 3.5-5.2 chloride, serum 105 mmol/L 98-107 blood glucose 85 mg/dL 65-110 urea nitrogen, blood 9 mg/dL 7-18 creatinine, serum 0.66 mg/dL 0.55-1.30 alanine aminotransferase (SGPT), serum 31 U/L 12-78 aspartate aminotransferase (SGOT), serum 21 U/L 15-37 calcium, serum 8.2 mg/dL 8.5-10.1 bilirubin, serum, total 1.10 mg/dL 0.00-1.00 cholesterol, serum 178 mg/dL 281-925 8681/01/26 triglyceride, serum, fasting 149 mg/dL 30-200 HDL [...] 5.0-8.5 Encounters Code Encounter Date Provider Facility CPT-18942 Level 3 Est. Patient 11:28:51 HIDE SELECTOR Efren almendarez APRN [facility] CPT-11402 Level 4 Est. Patient 13:55:46 HIDE SELECTOR Checo Conklin MD [facility] CPT-31915 Level 4 Est. Patient 17:10:53 CDT Checo Conklin MD [facility] CPT-74992 Level 3 Est. Patient 15:56:22 CDT Checo Conklin MD [facility] CPT-95913 Level 3 Est. Patient 15:29:07 CDT Checo Conklin MD [facility] CPT-06270 Level 3 Est. Patient 14:38:41 CDT Checo Conklin MD [facility] CPT-81385 Level 3 Est. Patient 15:22:03 HIDE SELECTOR Thomas reynolds DO [facility] CPT-16084 Level 3 Est. Patient 13:34:17 HIDE SELECTOR Checo Conklin MD [facility] CPT-38427 Level 3 Est. Patient 12:29:32 CDT Dangelo arroyo MD [facility] CPT-13882 Level 3 Est. Patient 16:53:02 CDT Checo Conklin MD [facility] CPT-24601 Level 3 Est. Patient 16:37:13 CDT Checo Conklin MD [facility] CPT-06469 Level 3 Est. Patient 16:16:59 CDT Paul Hamlin MD [facility] CPT-70359 Level 3 Est. Patient 14:20:13 CDT Dangelo arroyo MD [facility] CPT-66123 Level 4 Est. Patient 11:29:33 CDT Checo Conklin MD [facility] CPT-52600 Level 3 Est. Patient 17:08:31 CDT Checo Conklin MD [facility] CPT-39497 Level 3 Est. Patient 16:50:42 HIDE SELECTOR Checo Conklin MD [facility] CPT-05278 Level 4 Est. Patient 09:26:08 HIDE SELECTOR Checo Conklin MD [facility]-88539 Level 3 Est. Patient 11:37:10 CDT Checo Conklin MD [facility] CPT-70639 Level 4 Est. Patient 14:07:38 CDT Checo Conklin MD [facility] CPT-44357 Level 3 Est. Patient 09:54:41 CDT Checo Conklin MD [facility] CPT-23304 Level 3 Est. Patient 11:10:54 CDT Paul Hamlin MD [facility] CPT-96310 Level 3 Est. Patient 14:16:56 HIDE SELECTOR Checo Conklin MD [facility] CPT-83840 Level 3 Est. Patient 11:04:11 HIDE SELECTOR Checo Conklin MD [facility] CPT-26847 Level 3 Est. Patient 17:09:26 CDT Dangelo arroyo MD [facility] CPT-02490 Level 3 Est. Patient 16:54:37 CDT Checo Conklin MD [facility] Procedures Code Procedure Name Date Entry Date Standard Desc ription CPT-OV Office Visit 11:31:28 CDT CPT-56528 Tubersol 09:39:29 CDT CPT-J2550 Phenergan 25 mg (Promethazine) 13:59:02 HIDE SELECTOR CPT-J1885 Toradol 60 mg (Ketorolac) 13:59:02 HIDE SELECTOR 2012
--- OUTSIDE RECORDS SUMMARY | 2019-09-29 02:14 | XMS REPORT | Clinical Summary ---
Author Author Admin, Betahny Gonzales Organization [facility] Address Unknown Phone Unavailable Allergies, Adverse [...] mouth every 6 hours as needed HYDROCODONE-ACETAMINOPHEN [id number] Active Checo Conklin MD Active DICLOFENAC SODIUM 75 MG TBEC 1 tablet by mouth twice daily P RN Knee pain DICLOFENAC SODIUM 46822263808 Active Checo Conklin MD Active LAMISIL 250 MG TAB 1 po qd TERBINAFINE HCL 548 79439764 No Longer Active Checo Conklin MD Active REGLAN 10 MG TAB 1 po TID PRN Nausea METOCLOPRA MIDE HCL 89329646198 No Longer Active Checo Conklin MD Active CELEXA 20 MG TABS 1 tablet by mouth daily CITALOPRAM HYDROBROMIDE 97637937969 No Longer Active Checo Conklin MD Activ e AZITHROMYCIN 250 MG TABS 2 po qd x 1 day, then 1 po qd x 4 days AZITHROMYCIN 99518973696 No Longer Active Checo Conklin MD Active HYDROCODONE-ACETAMINOPHEN 5-325 MG TABS 1 po q 6hr PRN Pain 2013 HYDROCODONE-ACETAMINOPHEN 43563729847 No Longer Active Lenora Conklin MD Active PHENAZOPYRIDINE HCL 200 MG TABS take 1 tab po TID for bladder pa in PHENAZOPYRIDINE HCL 82606225784 No Longer Active Checo Joshua Active CIPRO 500 MG TAB 1 tablet by mouth twice daily CIPROFLOXACIN HCL 97514463335 No Longer Active Dangelo Rangel MD Active HYDROCODONE-ACETAMINOPHEN 5-325 MG TABS 1/2 to 1 po q 4 hour s prn cough HYDROCODONE-ACETAMINOPHEN 47868798589 No Longer Activ e Dangelo Rangel MD Active BACTRIM DS 800-160 MG TABS 1 po BID x 7 days 0 SULFAMETHOXAZOLE-TRIMETHOPRIM 79425877463 No Longer Active Checo Conklin MD Active PREDNISONE 20 MG TAB 2 tabs daily for 3 days, 1 t ab daily for 3 days, 1/2 tab daily for 2 days PREDNISONE 67345000241 No Longer Active Checo Conklin MD Active TRIAMCINOLONE ACETONIDE 0.1 % OINT Apply to affected a reas TID for up to 2 weeks TRIAMCINOLONE ACETONIDE 52055783567 No Longer A ctive Checo Conklin MD Active CEFDINIR 300 MG CAPS by mouth twice a day CEFDI JAZZY 38816916271 No Longer Active Dangelo Rangel MD Active BUPROPION HCL (SMOKING DETER) 150 MG [id number] 1 a day for 1 week then 1 twice a day BUPROPION HCL (SMOKING DETER) 42229877237 No Lo nger Active Checo Conklin MD Active SIMVASTATIN 20 MG TABS 1 po qd SIMVASTATIN 3645061434 5 Active Checo Conklin MD Active CHANTIX STARTING MONTH KARTHIK 0.5 MG X 11 & 1 MG X 42 TAB S 0.5mg daily for 3 days, then 0.5mg BID for 4 days, then 1mg BID VARENICLINE TARTRATE 19736267359 No Longer Active Checo Conklin MD Activ e XANAX 0.5 MG TABS 1 po BID PRN anxiety ALPRAZOLAM 21022778872 Active Checo Conklin MD Active CONCERTA 18 MG CR-TABS 1 po q a.m. METHYLPHENID ATE HCL 31801992872 No Longer Active Checo Conklin MD Active AMBIEN 5 MG TAB 1 po qHS PRN Insomnia ZOLPIDEM TARTRATE 14019192534 Active Checo Conklin MD Active TRAZODONE HCL 100 MG TAB 0.5 to 1 po qHS PRN Insomnia TRAZODONE HCL 93317803880 No Longer Active Checo Conklin MD Acti ve FIORICET 325-50-40 MG TAB 1 tablet by mouth four times daily as needed [id number] 24679954064 No Longer Active Checo Conklin MD Active PHENERGAN CREAM* 25mg applied to wrist q6hr PRN Nausea PHENERGAN CREAM* No Longer Active Checo Gonzales ctive FLONASE 50 MCG/ACT SUSP 1 spray each nostril am and hs FLUTICASONE PROPIONATE 86603711324 No Longer Active Checo Conklin MD Activ e ANTIPYRINE-BENZOCAINE 5.4-1.4 % SOLN 1-2 drops in affected ear BENZOCAINE-ANTIPYRINE 64059350365 No Longer Active Checo Conklin MD Active CEFDINIR 300 MG CAPS 1 po bid CEFDINIR 18101922 120 No Longer Active Checo Conklin MD Active PREDNISONE 20 MG TAB 2 tabs daily for 3 days, 1 t ab daily for 3 days, 1/2 tab daily for 2 days PREDNISONE 92394200167 No Longer Active Aracelis Conklin MD Active AZITHROMYCIN 250 MG TABS 2 po qd x 1 day, then 1 po qd x 4 days AZITHROMYCIN 17044957327 No Longer Active Checo Conklin MD Active PREDNISONE 20 MG TAB 2 tabs daily for 3 days, 1 t ab daily for 3 days, 1/2 tab daily for 2 days PREDNISONE 03013993990 No Longer Active Checo Conklin MD Active ZITHROMAX Z-KARTHIK 250 MG TABS 2 today, then 1 daily for 4 days 201 09/18/28 AZITHROMYCIN 25841017609 No Longer Active Paul Hamlin MD Active FOCALIN XR 10 MG [id number] 1 po q a.m. D EXMETHYLPHENIDATE HCL 47532316446 No Longer Active Paul Hamlin MD Activ e PERCOCET 10-325 MG TABS 1 tablet every 6 hours as needed for pain OXYCODONE-ACETAMINOPHEN 65650604881 No Longer Active Paul Hamlin MD Active LORTAB 5 5-500 MG TABS 1/2 to 1 tablet by mouth flaquito ry 4 hours as needed for pain HYDROCODONE-ACETAMINOPHEN 87175197280 No Longer Active Checo Conklin MD Active FOCALIN XR 15 MG [id number] 1 po q a.m. D EXMETHYLPHENIDATE HCL 15362615523 No Longer Active Checo Conklin MD Activ e ZOFRAN ODT 4 MG TBDP 1 po q6hr PRN Nausea ONDAN SETRON 37686021406 No Longer Active Checo Conklin MD Active PERCOCET 5-325 MG TABS 1 tablet by mouth every 6 hours as needed OXYCODONE-ACETAMINOPHEN 32805045736 No Longer Active Checo Conklin MD Active PYRIDIUM 200 MG TABS take 1 tab po TID prn urinary pain. 0 PHENAZOPYRIDINE HCL 08160790282 No Longer Active Checo Conklin MD Active FLUCONAZOLE 150 MG TABS take 1 tab po qday once 04/06 FLUCONAZOLE 04164874938 No Longer Active Dangelo Rangel MD Acti ve CIPRO 500 MG TAB 1 tablet by mouth twice daily CIPROFLOXACIN HCL 20744073314 No Longer Active Dangelo Rangel MD Active PYRIDIUM 200 MG TABS take 1 tab po TID prn urinary pain. 0 PYRIDIUM 200 MG TABS 7618861 PHENAZOPYRIDINE HCL Inactive PERCOCET 5-325 MG TABS 1 tablet by mouth every 6 hours as needed PERCOCET 5-325 MG TABS 4190483 OXYCODONE-ACETAMINOPHEN I nactive ZOFRAN ODT 4 MG TBDP 1 po q6hr PRN Nausea ZOFRAN ODT 4 MG TBDP 576804 ONDANSETRON Inactive FOCALIN XR 15 MG [id number] 1 po q a.m. F OCALIN XR 15 MG [id number] DEXMETHYLPHENIDATE HCL Inactive LORTAB 5 5-500 MG TABS 1/2 to 1 tablet by mouth flaquito ry 4 hours as needed for pain LORTAB 5 5-500 MG TABS HYDROCODONE-A CETAMINOPHEN Inactive PERCOCET 10-325 MG TABS 1 tablet every 6 hours as needed for pain PERCOCET 10-325 MG TABS 3943287 OXYCODONE-ACETAMINOPHEN Inactive FOCALIN XR 10 MG [id number] 1 po q a.m. F OCALIN XR 10 MG [id number] DEXMETHYLPHENIDATE HCL Inactive CEFDINIR 300 MG CAPS 1 po bid CEFDINIR 300 MG CAPS 20 0346 CEFDINIR Inactive ANTIPYRINE-BENZOCAINE 5.4-1.4 % SOLN 1-2 drops in affected ear ANTIPYRINE-BENZOCAINE 5.4-1.4 % SOLN 837285 BENZOCAINE-ANTIPYRINE I nactive FLONASE 50 MCG/ACT SUSP 1 spray each nostril am and hs FLONASE 50 MCG/ACT SUSP 010531 FLUTICASONE PROPIONATE Inactive PHENERGAN CREAM* 25mg applied to wrist q6hr PRN Nausea PHENERGAN CREAM* Inactive FIORICET 325-50-40 MG TAB 1 tablet by mouth four times daily as needed FIORICET 325-50-40 MG TAB ACETAMINOPHEN-C AFF-BUTALBITAL Inactive TRAZODONE HCL 100 MG TAB 0.5 to 1 po qHS PRN Insomnia TRAZODONE HCL 100 MG TAB 476970 TRAZODONE HCL Inactive CONCERTA 18 MG CR-TABS [...] s prn cough HYDROCODONE-ACETAMINOPHEN 5-325 MG TABS 216438 HYDROCODONE-ACETAMINOPHEN Inactive PHENAZOPYRIDINE HCL 200 MG TABS take 1 tab po TID for bladder pa in PHENAZOPYRIDINE HCL 200 MG TABS 7013816 PHENAZOPYRIDINE HCL Inactive HYDROCODONE-ACETAMINOPHEN 5-325 MG TABS 1 po q 6hr PRN Pain 2013 HYDROCODONE-ACETAMINOPHEN 5-325 MG TABS 993388 HYDROCODONE-ACETAMINOPHEN Inactive CELEXA 20 MG TABS 1 tablet by mouth daily CELEXA 20 MG TABS 979677 CITALOPRAM HYDROBROMIDE Inactive REGLAN 10 MG TAB 1 po TID PRN Nausea REGLAN 10 MG TAB 274886 METOCLOPRAMIDE HCL Inactive LAMISIL 250 MG TAB 1 po qd LAMISIL 250 MG TAB 845742 TERBINAFINE HCL Inactive CIPRO 500 MG TAB 1 tablet by mouth twice daily CIPRO 500 MG TAB 470784 CIPROFLOXACIN HCL Inactive FLUCONAZOLE 150 MG TABS take 1 tab po qday once 04/06 FLUCONAZOLE 150 MG TABS 697579 FLUCONAZOLE Inactive ZITHROMAX Z-KARTHIK 250 MG TABS 2 today, then 1 daily for 4 days 201 09/18/28 ZITHROMAX Z-KARTHIK 250 MG TABS 1164783 AZITHROMYCIN Inac tive PREDNISONE 20 MG TAB 2 tabs daily for 3 days, 1 t ab daily for 3 days, 1/2 tab daily for 2 days PREDNISONE 20 MG TAB 985636 PREDNISON E Inactive AZITHROMYCIN 250 MG TABS 2 po qd x 1 day, then 1 po qd x 4 days AZITHROMYCIN 250 MG TABS 4192054 AZITHROMYCIN Inactiv e PREDNISONE 20 MG TAB 2 tabs daily for 3 days, 1 t ab daily for 3 days, 1/2 tab daily for 2 days PREDNISONE 20 MG TAB 489044 PREDNISON E Inactive CEFDINIR 300 MG CAPS by mouth twice a day CEFDINIR 300 MG CAPS 006289 CEFDINIR Inactive TRIAMCINOLONE ACETONIDE 0.1 % OINT Apply to affected a reas TID for up to 2 weeks TRIAMCINOLONE ACETONIDE 0.1 % OINT 630504 6 TRIAMCINOLONE ACETONIDE Inactive PREDNISONE 20 MG TAB 2 tabs daily for 3 days, 1 t ab daily for 3 days, 1/2 tab daily for 2 days PREDNISONE 20 MG TAB 384447 PREDNISON E Inactive BACTRIM DS 800-160 MG TABS 1 po BID x 7 days 0 BACTRIM DS 800-160 MG TABS SULFAMETHOXAZOLE-TRIMETHOPRIM Inactive CIPRO 500 MG TAB 1 tablet by mouth twice daily CIPRO 500 MG TAB 030116 CIPROFLOXACIN HCL Inactive AZITHROMYCIN 250 MG TABS 2 po qd x 1 day, then 1 po qd x 4 days AZITHROMYCIN 250 MG TABS 4108352 AZITHROMYCIN Inactiv e Immunizations Vaccine Administration Date [...] Panel - Chemistry sodium, serum 139 mmol/L 931-310 8077/10/24 potassium, serum 4.1 mmol/L 3.5-5.2 chloride, serum [...] 0.80 mg/dL 0.00-1.00 cholesterol, serum 147 mg/dL 585-966 4576/10/24 triglyceride, serum, fasting 112 mg/dL 30-200 HDL [...] 5.0-8.5 Encounters Code Encounter Date Provider Facility CPT-61751 Level 3 Est. Patient 14:38:41 CDT Checo Conklin MD [facility] CPT-45911 Level 3 Est. Patient 15:22:03 [employer] Thomas reynolds DO [facility] CPT-28996 Level 3 Est. Patient 13:34:17 [employer] Checo Conklin MD [facility] CPT-38554 Level 3 Est. Patient 12:29:32 CDT Dangelo arroyo MD [facility] CPT-18406 Level 3 Est. Patient 16:53:02 CDT Checo Conklin MD [facility] CPT-19146 Level 3 Est. Patient 16:37:13 CDT Checo Conklin MD [facility] CPT-16720 Level 3 Est. Patient 16:16:59 CDT Paul Hamlin MD [facility] CPT-36283 Level 3 Est. Patient 14:20:13 CDT Dangelo arroyo MD [facility] CPT-49713 Level 4 Est. Patient 11:29:33 CDT Checo Conklin MD [facility] CPT-12786 Level 3 Est. Patient 17:08:31 CDT Checo Conklin MD [facility] CPT-49453 Level 3 Est. Patient 16:50:42 [employer] Checo Conklin MD [facility] CPT-74765 Level 4 Est. Patient 09:26:08 [employer] Checo Conklin MD [facility] CPT-35303 Level 3 Est. Patient 11:37:10 CDT Checo Conklin MD [facility] CPT-85519 Level 4 Est. Patient 14:07:38 CDT Checo Conklin MD [facility] CPT-33655 Level 3 Est. Patient 09:54:41 CDT Checo Conklin MD [facility] CPT-38395 Level 3 Est. Patient 11:10:54 CDT Paul Hamlin MD [facility] CPT-06422 Level 3 Est. Patient 14:16:56 [employer] Checo Conklin MD [facility] CPT-31276 Level 3 Est. Patient 11:04:11 [employer] Checo Conklin MD [facility] CPT-07735 Level 3 Est. Patient 17:09:26 CDT Dangelo arroyo MD [facility] CPT-43890 Level 3 Est. Patient 16:54:37 CDT Checo Conklin MD [facility] Procedures Code Procedure Name Date Entry Date Standard Desc ription CPT-OV Office Visit 11:31:28 CDT CPT-82608 Tubersol 09:39:29 CDT CPT-J2550 Phenergan 25 mg (Promethazine) 13:59:02 [employer] CPT-J1885 Toradol 60 mg (Ketorolac) 13:59:02 [employer] 2012
--- OUTSIDE RECORDS SUMMARY | 2019-09-29 02:14 | XMS REPORT | Clinical Summary ---
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 Tanner Carrillo MD Neoplasm of uncertain behavior of skin Abdominal pain, generalized 789.07 Active Jillina Frazell LICENSE CLERK Abdominal pain, generalized Urinary frequency 788.41 Active Jillina Frazell LICENSE CLERK Urinary frequency BREAST CANCER ICD-V16.3 Inactive Checo [...] tab by mouth twice daily 2 TRIMETHOPRIM-SULFAMETHOXAZOLE 45569645098 No Longer Active Tanner Carrillo MD Active DIFLUCAN 150 MG TAB 1 tablet by mouth qod FLUCO NAZOLE 82326488500 No Longer Active Efren Medel APRN Active CLARITIN 10 MG TAB 1 tablet by mouth daily as needed for allergies LORATADINE 61193341535 Active Jillina Frazell LICENSE CLERK Active AZITHROMYCIN 250 MG TABS 2 po qd x 1 day, then 1 po qd x 4 days AZITHROMYCIN 10488315113 No Longer Active Jillina Lizy MAX Active FLAGYL 500 MG TAB 1 tablet by mouth bid METRONI DAZOLE 24614010068 No Longer Active Checo Conklin MD Active FOCALIN XR 10 MG ORAL [id number] 1 po q a.m. DEX METHYLPHENIDATE HCL 90668435383 Active Checo Conklin MD Active MAGNESIUM CITRATE 1.745 GM/30ML ORAL SOLN 150ml po BID PRN C onstipation MAGNESIUM CITRATE 22442223049 No Longer Active Checo Conklin MD Active BACTROBAN 2 % CREAM Apply to affected area BID for up to 10 days MUPIROCIN CALCIUM 28953389355 No Longer Active Checo Conklin MD Active HYDROCODONE-ACETAMINOPHEN 5-325 MG TABS 1 tab by mouth every 6 hours as needed HYDROCODONE-ACETAMINOPHEN 10363584969 No Longer Activ e Checo Conklin MD Active IBUPROFEN 800 MG TABS 1 tab every 8 hours with food 31/03/21 IBUPROFEN 78653962315 No Longer Active Checo Conklin MD Activ e DIFLUCAN 150 MG TAB 1 tablet by mouth if needed, hold until symptoms start FLUCONAZOLE 69301333609 No Longer Active Checo Ortiz MD Active BACTRIM DS 800-160 MG TAB 1 tab by mouth twice daily 2 TRIMETHOPRIM-SULFAMETHOXAZOLE 44096922953 No Longer Active Corry leong LPN Active MIRALAX PACK 1 po qd PRN Constipation POLYETHYL JOEL GLYCOL 3350 55109175318 Active Checo Conklin MD Active HYDROCODONE-ACETAMINOPHEN 5-325 MG TABS 0.5 to 1 tab b y mouth every 6 hours as needed HYDROCODONE-ACETAMINOPHEN 40697899338 No Longer Active Checo Conklin MD Active ONDANSETRON [address] one tablet on tongue and allow to dissolve every 6 hours as needed for vomitting ONDANSETRO N 15957947734 No Longer Active Checo Conklin MD Active COMPRO 25 MG RECTAL SUPP insert or apply one supposit ory rectally as directed every 12 hours as needed for nausea PROCHLORPERA ZINE 34191253295 No Longer Active Checo Conklin MD Active SUMATRIPTAN SUCCINATE 100 MG ORAL TABS Take one PRN for migrane SUMATRIPTAN SUCCINATE 70537734204 No Longer Active Checo Conklin MD Active TRAVEL SICKNESS 25 MG ORAL CHEW chew and swallow one t ablet every 6 hours as needed MECLIZINE HCL 05809140894 No Longer Active Joe Conklin MD Active BUPROPION HCL ER (SR) 100 MG ORAL [id number] take one t ablet by mouth one time daily for one week then take 1 two times daily BUPROPION HCL 97259908901 No Longer Active Checo Conklin MD Activ e TERBINAFINE HCL 250 MG ORAL TABS take one table PO one time abran y TERBINAFINE HCL 53748613672 No Longer Active Checo Conklin MD Active METOCLOPRAMIDE HCL 10 MG ORAL TABS take one PO tid PRN nausea 20 29/12/14 METOCLOPRAMIDE HCL 05643643299 No Longer Active Checo Conklin MD Active DICLOFENAC SODIUM 75 MG TBEC 1 tablet by mouth twice daily P RN Knee pain DICLOFENAC SODIUM 48553260939 No Longer Active Checo Conklin MD Active LAMISIL 250 MG TAB 1 po qd TERBINAFINE HCL 548 34512584 No Longer Active Checo Conklin MD Active REGLAN 10 MG TAB 1 po TID PRN Nausea METOCLOPRA MIDE HCL 29347872846 No Longer Active Checo Conklin MD Active CELEXA 20 MG TABS 1 tablet by mouth daily CITALOPRAM HYDROBROMIDE 23736118431 No Longer Active Checo Conklin MD Activ e AZITHROMYCIN 250 MG TABS 2 po qd x 1 day, then 1 po qd x 4 days AZITHROMYCIN 66427574371 No Longer Active Checo Conklin MD Active HYDROCODONE-ACETAMINOPHEN 5-325 MG TABS 1 po q 6hr PRN Pain 2013 HYDROCODONE-ACETAMINOPHEN 89501940356 No Longer Active Lenora Conklin MD Active PHENAZOPYRIDINE HCL 200 MG TABS take 1 tab po TID for bladder pa in PHENAZOPYRIDINE HCL 41428745160 No Longer Active Checo Joshua Active CIPRO 500 MG TAB 1 tablet by mouth twice daily CIPROFLOXACIN HCL 62497787530 No Longer Active Dangelo Rangel MD Active HYDROCODONE-ACETAMINOPHEN 5-325 MG TABS 1/2 to 1 po q 4 hour s prn cough HYDROCODONE-ACETAMINOPHEN 04075265843 No Longer Activ e Dangelo Rangel MD Active BACTRIM DS 800-160 MG TABS 1 po BID x 7 days 0 SULFAMETHOXAZOLE-TRIMETHOPRIM 28250437002 No Longer Active Checo Conklin MD Active PREDNISONE 20 MG TAB 2 tabs daily for 3 days, 1 t ab daily for 3 days, 1/2 tab daily for 2 days PREDNISONE 73841660859 No Longer Active Checo Conklin MD Active TRIAMCINOLONE ACETONIDE 0.1 % OINT Apply to affected a reas TID for up to 2 weeks TRIAMCINOLONE ACETONIDE 74606408643 No Longer A ctive Checo Conklin MD Active CEFDINIR 300 MG CAPS by mouth twice a day CEFDI JAZZY 73664209230 No Longer Active Dangelo Rangel MD Active BUPROPION HCL (SMOKING DETER) 150 MG [id number] 1 a day for 1 week then 1 twice a day BUPROPION HCL (SMOKING DETER) 87767639903 No Lo nger Active Checo Conklin MD Active SIMVASTATIN 20 MG TABS 1 po qd SIMVASTATIN 2278208635 5 Active Checo Conklin MD Active CHANTIX STARTING MONTH KARTHIK 0.5 MG X 11 & 1 MG X 42 TAB S 0.5mg daily for 3 days, then 0.5mg BID for 4 days, then 1mg BID VARENICLINE TARTRATE 84088425618 No Longer Active Checo Conklin MD Activ e XANAX 0.5 MG TABS 1 po BID PRN anxiety ALPRAZOLAM 70639238626 Active Paul Hamlin MD Active CONCERTA 18 MG CR-TABS 1 po q a.m. METHYLPHENID ATE HCL 82807893465 No Longer Active Checo Conklin MD Active AMBIEN 5 MG TAB 1 po qHS PRN Insomnia ZOLPIDEM TARTRATE 91111414505 Active Paul Hamlin MD Active TRAZODONE HCL 100 MG TAB 0.5 to 1 po qHS PRN Insomnia TRAZODONE HCL 68484078075 No Longer Active Checo Conklin MD Acti ve FIORICET 325-50-40 MG TAB 1 tablet by mouth four times daily as needed [id number] 39615372296 No Longer Active Checo Conklin MD Active PHENERGAN CREAM* 25mg applied to wrist q6hr PRN Nausea PHENERGAN CREAM* No Longer Active Checo Conklin MD A ctive FLONASE 50 MCG/ACT SUSP 1 spray each nostril am and hs FLUTICASONE PROPIONATE 19471991805 No Longer Active Checo Simms e ANTIPYRINE-BENZOCAINE 5.4-1.4 % SOLN 1-2 drops in affected ear BENZOCAINE-ANTIPYRINE 77917000907 No Longer Active Checo Conklin MD Active CEFDINIR 300 MG CAPS 1 po bid CEFDINIR 94535536 120 No Longer Active Checo Conklin MD Active PREDNISONE 20 MG TAB 2 tabs daily for 3 days, 1 t ab daily for 3 days, 1/2 tab daily for 2 days PREDNISONE 40453149132 No Longer Active Aracelis Conklin MD Active AZITHROMYCIN 250 MG TABS 2 po qd x 1 day, then 1 po qd x 4 days AZITHROMYCIN 93431705639 No Longer Active Checo Conklin MD Active PREDNISONE 20 MG TAB 2 tabs daily for 3 days, 1 t ab daily for 3 days, 1/2 tab daily for 2 days PREDNISONE 92249701748 No Longer Active Checo Conklin MD Active ZITHROMAX Z-KARTHIK 250 MG TABS 2 today, then 1 daily for 4 days 201 09/18/28 AZITHROMYCIN 76391709087 No Longer Active Paul Hamlin MD Active FOCALIN XR 10 MG [id number] 1 po q a.m. D EXMETHYLPHENIDATE HCL 54362563560 No Longer Active aPul Hamlin MD Activ e PERCOCET 10-325 MG TABS 1 tablet every 6 hours as needed for pain OXYCODONE-ACETAMINOPHEN 73353553476 No Longer Active Paul Hamlin MD Active LORTAB 5 5-500 MG TABS 1/2 to 1 tablet by mouth flaquito ry 4 hours as needed for pain HYDROCODONE-ACETAMINOPHEN 10246339688 No Longer Active Checo Conklin MD Active FOCALIN XR 15 MG [id number] 1 po q a.m. D EXMETHYLPHENIDATE HCL 36389142843 No Longer Active Checo Conklin MD Activ e ZOFRAN ODT 4 MG TBDP 1 po q6hr PRN Nausea ONDAN SETRON 84300273785 No Longer Active Checo Conklin MD Active PERCOCET 5-325 MG TABS 1 tablet by mouth every 6 hours as needed OXYCODONE-ACETAMINOPHEN 16966102629 No Longer Active Checo Conklin MD Active PYRIDIUM 200 MG TABS take 1 tab po TID prn urinary pain. 0 PHENAZOPYRIDINE HCL 53987166281 No Longer Active Checo Conklin MD Active FLUCONAZOLE 150 MG TABS take 1 tab po qday once 04/06 FLUCONAZOLE 09783438258 No Longer Active Dangelo Rangel MD Acti ve CIPRO 500 MG TAB 1 tablet by mouth twice daily CIPROFLOXACIN HCL 07508073624 No Longer Active Dangelo Rangel MD Active PYRIDIUM 200 MG TABS take 1 tab po TID prn urinary pain. 0 PYRIDIUM 200 MG TABS 3653366 PHENAZOPYRIDINE HCL Inactive PERCOCET 5-325 MG TABS 1 tablet by mouth every 6 hours as needed PERCOCET 5-325 MG TABS 9755885 OXYCODONE-ACETAMINOPHEN I nactive ZOFRAN ODT 4 MG TBDP 1 po q6hr PRN Nausea ZOFRAN ODT 4 MG TBDP 274045 ONDANSETRON Inactive FOCALIN XR 15 MG [id number] 1 po q a.m. F OCALIN XR 15 MG [id number] DEXMETHYLPHENIDATE HCL Inactive LORTAB 5 5-500 MG TABS 1/2 to 1 tablet by mouth flaquito ry 4 hours as needed for pain LORTAB 5 5-500 MG TABS HYDROCODONE-A CETAMINOPHEN Inactive PERCOCET 10-325 MG TABS 1 tablet every 6 hours as needed for pain PERCOCET 10-325 MG TABS 1465538 OXYCODONE-ACETAMINOPHEN Inactive FOCALIN XR 10 MG [id number] 1 po q a.m. F OCALIN XR 10 MG [id number] DEXMETHYLPHENIDATE HCL Inactive CEFDINIR 300 MG CAPS [...] PRN Insomnia TRAZODONE HCL 100 MG TAB 787275 TRAZODONE HCL Inactive CONCERTA 18 MG CR-TABS [...] s prn cough HYDROCODONE-ACETAMINOPHEN 5-325 MG TABS 117740 HYDROCODONE-ACETAMINOPHEN Inactive PHENAZOPYRIDINE HCL 200 MG TABS take 1 tab po TID for bladder pa in PHENAZOPYRIDINE HCL 200 MG TABS 9415886 PHENAZOPYRIDINE HCL Inactive HYDROCODONE-ACETAMINOPHEN 5-325 MG TABS 1 po q 6hr PRN Pain 2013 HYDROCODONE-ACETAMINOPHEN 5-325 MG TABS 596200 HYDROCODONE-ACETAMINOPHEN Inactive CELEXA 20 MG TABS 1 tablet by mouth daily CELEXA 20 MG TABS 343023 CITALOPRAM HYDROBROMIDE Inactive REGLAN 10 MG TAB 1 po TID PRN Nausea REGLAN 10 MG TAB 839536 METOCLOPRAMIDE HCL Inactive LAMISIL 250 MG TAB 1 po qd LAMISIL 250 MG TAB 078484 TERBINAFINE HCL Inactive DICLOFENAC SODIUM 75 MG TBEC 1 tablet by mouth twice daily P RN Knee pain DICLOFENAC SODIUM 75 MG TBEC 192176 DICLOFENAC S ODIUM Inactive METOCLOPRAMIDE HCL 10 MG ORAL TABS take one PO tid PRN nausea 20 29/12/14 METOCLOPRAMIDE HCL 10 MG ORAL TABS 321686 METOCLOPRAMID E HCL Inactive TERBINAFINE HCL 250 MG ORAL TABS take one table PO one time abran y TERBINAFINE HCL 250 MG ORAL TABS 088164 TERBINAFINE HCL Inactive BUPROPION HCL ER (SR) 100 MG ORAL [id number] take one t ablet by mouth one time daily for one week then take 1 two times daily BUPROPION HCL ER (SR) 100 MG ORAL [id number] BUPROPION HCL Inacti ve TRAVEL SICKNESS 25 MG ORAL CHEW chew and swallow one t ablet every 6 hours as needed TRAVEL SICKNESS 25 MG ORAL CHEW 619057 MECLIZINE HCL Inactive SUMATRIPTAN SUCCINATE 100 MG ORAL TABS Take one PRN for migrane SUMATRIPTAN SUCCINATE 100 MG ORAL TABS 144084 SUMATRIPT AN SUCCINATE Inactive COMPRO 25 MG RECTAL SUPP insert or apply one supposit ory rectally as directed every 12 hours as needed for nausea COMP RO 25 MG RECTAL SUPP 625682 PROCHLORPERAZINE Inactive ONDANSETRON [address] one tablet on tongue and allow to dissolve every 6 hours as needed for vomitting ON DANSETRON 8 MG ORAL TBDP 924178 ONDANSETRON Inactive HYDROCODONE-ACETAMINOPHEN 5-325 MG TABS 0.5 to 1 tab b y mouth every 6 hours as needed HYDROCODONE-ACETAMINOPHEN 5-325 MG TABS 8 53996 HYDROCODONE-ACETAMINOPHEN Inactive BACTRIM DS 800-160 MG TAB 1 tab by mouth twice daily 2 BACTRIM DS 800-160 MG TAB 546497 TRIMETHOPRIM-SULFAMETHOXAZOLE Inac tive DIFLUCAN 150 MG TAB 1 tablet by mouth if needed, hold until symptoms start DIFLUCAN 150 MG TAB 448923 FLUCONAZOLE Inactive IBUPROFEN 800 MG TABS 1 tab every 8 hours with food 20 31/03/21 IBUPROFEN 800 MG TABS 801964 IBUPROFEN Inactive HYDROCODONE-ACETAMINOPHEN 5-325 MG TABS 1 tab by mouth every 6 hours as needed HYDROCODONE-ACETAMINOPHEN 5-325 MG TABS 065765 HYDROCODONE-ACETAMINOPHEN Inactive BACTROBAN 2 % CREAM Apply to affected area BID for up to 10 days BACTROBAN 2 % CREAM 988909 MUPIROCIN CALCIUM Inactive MAGNESIUM CITRATE 1.745 GM/30ML ORAL SOLN 150ml po BID PRN C onstipation MAGNESIUM CITRATE 1.745 GM/30ML ORAL SOLN 107529 0 MAGNESIUM CITRATE Inactive DIFLUCAN 150 MG TAB 1 tablet by mouth qod DIFLUCAN 150 MG TAB 772580 FLUCONAZOLE Inactive BACTRIM DS 800-160 MG TAB 1 tab by mouth twice daily 2 BACTRIM DS 800-160 MG TAB 265063 TRIMETHOPRIM-SULFAMETHOXAZOLE Inac tive CIPRO 500 MG TAB 1 tablet by mouth twice daily CIPRO 500 MG TAB 057717 CIPROFLOXACIN HCL Inactive FLUCONAZOLE 150 MG TABS take 1 tab po qday once 04/06 FLUCONAZOLE 150 MG TABS 19760325 FLUCONAZOLE Inactive ZITHROMAX Z-KARTHIK 250 MG TABS 2 today, then 1 daily for 4 days 201 09/18/28 ZITHROMAX Z-KARTHIK 250 MG TABS 0145510 AZITHROMYCIN Inac tive PREDNISONE 20 MG TAB 2 tabs daily for 3 days, 1 t ab daily for 3 days, 1/2 tab daily for 2 days PREDNISONE 20 MG TAB 818035 PREDNISON E Inactive AZITHROMYCIN 250 MG TABS 2 po qd x 1 day, then 1 po qd x 4 days AZITHROMYCIN 250 MG TABS 2438768 AZITHROMYCIN Inactiv e PREDNISONE 20 MG TAB 2 tabs daily for 3 days, 1 t ab daily for 3 days, 1/2 tab daily for 2 days PREDNISONE 20 MG TAB 182031 PREDNISON E Inactive CEFDINIR 300 MG CAPS by mouth twice a day CEFDINIR 300 MG CAPS 267141 CEFDINIR Inactive TRIAMCINOLONE ACETONIDE 0.1 % OINT Apply to affected a reas TID for up to 2 weeks TRIAMCINOLONE ACETONIDE 0.1 % OINT 636435 6 TRIAMCINOLONE ACETONIDE Inactive PREDNISONE 20 MG TAB 2 tabs daily for 3 days, 1 t ab daily for 3 days, 1/2 tab daily for 2 days PREDNISONE 20 MG TAB 410286 PREDNISON E Inactive BACTRIM DS 800-160 MG TABS 1 po BID x 7 days 0 BACTRIM DS 800-160 MG TABS 290381 SULFAMETHOXAZOLE-TRIMETHOPRIM Inactive CIPRO 500 MG TAB 1 tablet by mouth twice daily CIPRO 500 MG TAB 609924 CIPROFLOXACIN HCL Inactive AZITHROMYCIN 250 MG TABS 2 po qd x 1 day, then 1 po qd x 4 days AZITHROMYCIN 250 MG TABS 4691552 AZITHROMYCIN Inactiv e FLAGYL 500 MG TAB 1 tablet by mouth bid FLAGYL 500 MG TAB 862076 METRONIDAZOLE Inactive AZITHROMYCIN 250 MG TABS 2 po qd x 1 day, then 1 po qd x 4 days AZITHROMYCIN 250 MG TABS 8332231 AZITHROMYCIN Inactiv e Immunizations Vaccine Administration Date [...] 11 .6-14.8 platelet count 210 10^3/MM^3 10*3/mm3 021-903 5790/01/26 mean corpuscular volume, RBC 98 fL 80-97 [...] 11 .6-14.8 platelet count 248 10^3/MM^3 10*3/mm3 333-589 7091/05/27 leukocyte count, blood 8.0 10^3/MM^3 10*3/mm3 4.6-10.2 Lab Report: CBC W/DIFF, Comp. Metabolic Panel, Qual [facility] - Chemistry sodium, serum 139 mmol/L 741-679 4603/10/21 carbon dioxide, venous blood 33.5 mmol/L 21.0-32 [...] W/DIFF, Comp. Metabolic Panel, [place] [facility] [place] leukocyte count, blood 7.9 10^3/MM^3 [...] 248 10^3/MM^3 10*3/mm3 142-424 Lab Report: Chlamydia/GC APTIMA/[id number] - Lab chlamydia DNA probe NOT DETECTED NOT DETECTED Lab Report: Chlamydia/GC APTIMA/[id number] - Microbiology Neisseria gonorrhoeae DNA probe NOT DETECTED NO T DETECTED Lab Report: Comp. Metabolic Panel, Lipid Panel, Thyroid Stimulating Horm ... - Chemistry protein, total urine random Negative mg/dL Negative RBC, urine, dipstick Negative Negative sodium, serum 141 mmol/L 256-709 5483/01/26 carbon dioxide, venous blood 30.0 mmol/L 21.0-32 .0 potassium, serum 4.0 mmol/L 3.5-5.2 chloride, serum 105 mmol/L 98-107 blood glucose 85 mg/dL 65-110 urea nitrogen, blood 9 mg/dL 7-18 creatinine, serum 0.66 mg/dL 0.55-1.30 alanine aminotransferase (SGPT), serum 31 U/L 12-78 aspartate aminotransferase (SGOT), serum 21 U/L 15-37 calcium, serum 8.2 mg/dL 8.5-10.1 bilirubin, serum, total 1.10 mg/dL 0.00-1.00 cholesterol, serum 178 mg/dL 469-524 0848/01/26 triglyceride, serum, fasting 149 mg/dL 30-200 HDL [...] ... - Chemistry sodium, serum 137 mmol/L 566-232 4918/05/27 carbon dioxide, venous blood 29.1 mmol/L 21.0-32 [...] 5.0-8.5 Encounters Code Encounter Date Provider Facility CPT-20975 Level 3 Est. Patient 09:11:49 CDT Efren almendarez [facility] CPT-28967 Level 2 Est. Patient 19:53:27 CDT Tanner hill MD [facility] CPT-85579 Level 3 Est. Patient 09:15:34 CDT Efren almendarez [facility] CPT-28096 Level 3 Est. Patient 11:28:51 POWDER COATER Efren almendarez [facility] CPT-63448 Level 4 Est. Patient 13:55:46 POWDER COATER Checo Conklin MD [facility] CPT-40359 Level 4 Est. Patient 17:10:53 CDT Checo Conklin MD [facility] CPT-81531 Level 3 Est. Patient 15:56:22 CDT Checo Conklin MD [facility] CPT-88745 Level 3 Est. Patient 15:29:07 CDT Checo Conklin MD [facility] CPT-65570 Level 3 Est. Patient 14:38:41 CDT Checo Conklin MD [facility] CPT-40235 Level 3 Est. Patient 15:22:03 POWDER COATER Thomas reynolds DO [facility] CPT-65437 Level 3 Est. Patient 13:34:17 POWDER COATER Checo Conklin MD [facility] CPT-56660 Level 3 Est. Patient 12:29:32 CDT Dangelo arroyo MD [facility] CPT-30523 Level 3 Est. Patient 16:53:02 CDT Checo Conklin MD [facility] CPT-30456 Level 3 Est. Patient 16:37:13 CDT Checo Conklin MD [facility] CPT-14074 Level 3 Est. Patient 16:16:59 CDT Paul Hamlin MD [facility] CPT-96513 Level 3 Est. Patient 14:20:13 CDT Dangelo arroyo MD [facility] CPT-89571 Level 4 Est. Patient 11:29:33 CDT Checo Conklin MD [facility] CPT-92095 Level 3 Est. Patient 17:08:31 CDT Checo Conklin MD [facility] CPT-76334 Level 3 Est. Patient 16:50:42 POWDER COATER Checo Conklin MD [facility] CPT-79701 Level 4 Est. Patient 09:26:08 POWDER COATER Checo Conklin MD [facility] CPT-87785 Level 3 Est. Patient 11:37:10 CDT Checo Conklin MD [facility] CPT-85973 Level 4 Est. Patient 14:07:38 CDT Checo Conklin MD [facility] CPT-54731 Level 3 Est. Patient 09:54:41 CDT Checo Conklin MD [facility] CPT-69445 Level 3 Est. Patient 11:10:54 CDT Paul Hamlin MD [facility] CPT-76772 Level 3 Est. Patient 14:16:56 POWDER COATER Checo Conklin MD [facility] CPT-05369 Level 3 Est. Patient 11:04:11 POWDER COATER Checo Conklin MD [facility] CPT-33082 Level 3 Est. Patient 17:09:26 CDT Dangelo arroyo MD [facility] CPT-56362 Level 3 Est. Patient 16:54:37 CDT Checo Conklin MD [facility] Procedures Code Procedure Name Date Entry Date Standard Desc ription CPT-93907 UA w micro - LAB USE ONLY 17:06:46 CDT 2015 CPT-41624 [facility] Qual - LAB USE ONLY 17:06:46 CDT 05/06 CPT-33282 CMP - LAB USE ONLY 17:06:46 CDT CPT-77666 CBC with Diff - LAB USE ONLY 17:06:45 CDT 2 CPT-36220 Venipuncture Draw Fee 17:06:45 CDT CPT-LR Lesion Removal 19:53:27 CDT CPT-OV Office Visit 11:31:28 CDT CPT-89015 Tubersol 09:39:29 CDT CPT-J2550 Phenergan 25 mg (Promethazine) 13:59:02 POWDER COATER CPT-J1885 Toradol 60 mg (Ketorolac) 13:59:02 POWDER COATER 2012
--- OUTSIDE RECORDS SUMMARY | 2019-09-29 02:14 | XMS REPORT | Clinical Summary ---
Author Author Admin, Bethany Ayala [facility] Address Unknown Phone Unavailable Allergies, Adverse [...] vulvovaginitis, unspecified Pharyngitis 462 Active Jillina Frazell MAILING CLERK Acute pharyngitis Cough 786.2 Active Jillina Frasandra MAILING CLERK Cough Pedal edema 782.3 Active Jillina Frazell MAILING CLERK Edema NEOPLASM OF UNCERTAIN BEHAVIOR OF [...] tab by mouth twice daily 2 TRIMETHOPRIM-SULFAMETHOXAZOLE 68232474807 No Longer Active Tanner Carrillo MD Active DIFLUCAN 150 MG TAB 1 tablet by mouth qod FLUCO NAZOLE 52105771365 No Longer Active Efren Medel APRN Active CLARITIN 10 MG TAB 1 tablet by mouth daily as needed for allergies LORATADINE 84928381055 Active Efren Medel MAILING CLERK Active AZITHROMYCIN 250 MG TABS 2 po qd x 1 day, then 1 po qd x 4 days AZITHROMYCIN 86207883071 No Longer Active Jillina Lizy RIDDLEN Active FLAGYL 500 MG TAB 1 tablet by mouth bid METRONI DAZOLE 10921890491 No Longer Active Checo Conklin MD Active FOCALIN XR 10 MG ORAL [id number] 1 po q a.m. DEX METHYLPHENIDATE HCL 59581231081 Active Checo Conklin MD Active MAGNESIUM CITRATE 1.745 GM/30ML ORAL SOLN 150ml po BID PRN C onstipation MAGNESIUM CITRATE 76026709830 No Longer Active Checo Conklin MD Active BACTROBAN 2 % CREAM Apply to affected area BID for up to 10 days MUPIROCIN CALCIUM 11624706235 No Longer Active Checo Conklin MD Active HYDROCODONE-ACETAMINOPHEN 5-325 MG TABS 1 tab by mouth every 6 hours as needed HYDROCODONE-ACETAMINOPHEN 85824824457 No Longer Activ e Checo Conklin MD Active IBUPROFEN 800 MG TABS 1 tab every 8 hours with food 20 31/03/21 IBUPROFEN 37143601204 No Longer Active Checo Conklin MD Activ e DIFLUCAN 150 MG TAB 1 tablet by mouth if needed, hold until symptoms start FLUCONAZOLE 92303112769 No Longer Active Checo Ortiz MD Active BACTRIM DS 800-160 MG TAB 1 tab by mouth twice daily 2 TRIMETHOPRIM-SULFAMETHOXAZOLE 12161815121 No Longer Active Corry leong LPN Active MIRALAX PACK 1 po qd PRN Constipation POLYETHYL JOEL GLYCOL 3350 63982817636 Active Checo Conklin MD Active HYDROCODONE-ACETAMINOPHEN 5-325 MG TABS 0.5 to 1 tab b y mouth every 6 hours as needed HYDROCODONE-ACETAMINOPHEN 88980009370 No Longer Active Checo Conklin MD Active ONDANSETRON [address] one tablet on tongue and allow to dissolve every 6 hours as needed for vomitting ONDANSETRO N 99577829581 No Longer Active Checo Conklin MD Active COMPRO 25 MG RECTAL SUPP insert or apply one supposit ory rectally as directed every 12 hours as needed for nausea PROCHLORPERA ZINE 76107622087 No Longer Active Checo Conklin MD Active SUMATRIPTAN SUCCINATE 100 MG ORAL TABS Take one PRN for migrane SUMATRIPTAN SUCCINATE 18025130986 No Longer Active Checo Conklin MD Active TRAVEL SICKNESS 25 MG ORAL CHEW chew and swallow one t ablet every 6 hours as needed MECLIZINE HCL 10103083639 No Longer Active Joe Conklin MD Active BUPROPION HCL ER (SR) 100 MG ORAL [id number] take one t ablet by mouth one time daily for one week then take 1 two times daily BUPROPION HCL 67733159190 No Longer Active Checo Conklin MD Activ e TERBINAFINE HCL 250 MG ORAL TABS take one table PO one time abran y TERBINAFINE HCL 11297883541 No Longer Active Checo Conklin MD Active METOCLOPRAMIDE HCL 10 MG ORAL TABS take one PO tid PRN nausea 20 29/12/14 METOCLOPRAMIDE HCL 80481181133 No Longer Active Checo Conklin MD Active DICLOFENAC SODIUM 75 MG TBEC 1 tablet by mouth twice daily P RN Knee pain DICLOFENAC SODIUM 43073163199 No Longer Active Checo Conklin MD Active LAMISIL 250 MG TAB 1 po qd TERBINAFINE HCL 548 70753554 No Longer Active Checo Conklin MD Active REGLAN 10 MG TAB 1 po TID PRN Nausea METOCLOPRA MIDE HCL 81304524523 No Longer Active Checo Conklin MD Active CELEXA 20 MG TABS 1 tablet by mouth daily CITALOPRAM HYDROBROMIDE 12428457251 No Longer Active Checo Conklin MD Activ e AZITHROMYCIN 250 MG TABS 2 po qd x 1 day, then 1 po qd x 4 days AZITHROMYCIN 93010206316 No Longer Active Checo Conklin MD Active HYDROCODONE-ACETAMINOPHEN 5-325 MG TABS 1 po q 6hr PRN Pain 2013 HYDROCODONE-ACETAMINOPHEN 99554363971 No Longer Active Lenora Conklin MD Active PHENAZOPYRIDINE HCL 200 MG TABS take 1 tab po TID for bladder pa in PHENAZOPYRIDINE HCL 38180471939 No Longer Active Checo Joshua Active CIPRO 500 MG TAB 1 tablet by mouth twice daily CIPROFLOXACIN HCL 09201473340 No Longer Active Dangelo Rangel MD Active HYDROCODONE-ACETAMINOPHEN 5-325 MG TABS 1/2 to 1 po q 4 hour s prn cough HYDROCODONE-ACETAMINOPHEN 16494505406 No Longer Activ e Dangelo Rangel MD Active BACTRIM DS 800-160 MG TABS 1 po BID x 7 days 0 SULFAMETHOXAZOLE-TRIMETHOPRIM 65773657328 No Longer Active Checo Conklin MD Active PREDNISONE 20 MG TAB 2 tabs daily for 3 days, 1 t ab daily for 3 days, 1/2 tab daily for 2 days PREDNISONE 11741847643 No Longer Active Checo Conklin MD Active TRIAMCINOLONE ACETONIDE 0.1 % OINT Apply to affected a reas TID for up to 2 weeks TRIAMCINOLONE ACETONIDE 70852826830 No Longer A ctive Checo Conklin MD Active CEFDINIR 300 MG CAPS by mouth twice a day CEFDI JAZZY 21702634039 No Longer Active Dangelo Rangel MD Active BUPROPION HCL (SMOKING DETER) 150 MG [id number] 1 a day for 1 week then 1 twice a day BUPROPION HCL (SMOKING DETER) 56198718304 No Lo nger Active Checo Conklin MD Active SIMVASTATIN 20 MG TABS 1 po qd SIMVASTATIN 7641014449 5 Active Checo Conklin MD Active CHANTIX STARTING MONTH KARTHIK 0.5 MG X 11 & 1 MG X 42 TAB S 0.5mg daily for 3 days, then 0.5mg BID for 4 days, then 1mg BID VARENICLINE TARTRATE 48547639681 No Longer Active Checo Conklin MD Activ e XANAX 0.5 MG TABS 1 po BID PRN anxiety ALPRAZOLAM 76891597894 Active Checo Conklin MD Active CONCERTA 18 MG CR-TABS 1 po q a.m. METHYLPHENID ATE HCL 78607666327 No Longer Active Checo Conklin MD Active AMBIEN 5 MG TAB 1 po qHS PRN Insomnia ZOLPIDEM TARTRATE 33110080098 Active Checo Conklin MD Active TRAZODONE HCL 100 MG TAB 0.5 to 1 po qHS PRN Insomnia TRAZODONE HCL 08913393651 No Longer Active Checo Conklin MD Acti ve FIORICET 325-50-40 MG TAB 1 tablet by mouth four times daily as needed [id number] 53012749011 No Longer Active Checo Conklin MD Active PHENERGAN CREAM* 25mg applied to wrist q6hr PRN Nausea PHENERGAN CREAM* No Longer Active Checo Conklin MD A ctive FLONASE 50 MCG/ACT SUSP 1 spray each nostril am and hs FLUTICASONE PROPIONATE 06584104993 No Longer Active Checo Conklin MD Activ e ANTIPYRINE-BENZOCAINE 5.4-1.4 % SOLN 1-2 drops in affected ear BENZOCAINE-ANTIPYRINE 98110972516 No Longer Active Checo Conklin MD Active CEFDINIR 300 MG CAPS 1 po bid CEFDINIR 53850628 120 No Longer Active Checo Conklin MD Active PREDNISONE 20 MG TAB 2 tabs daily for 3 days, 1 t ab daily for 3 days, 1/2 tab daily for 2 days PREDNISONE 70455140029 No Longer Active Aracelis Conklin MD Active AZITHROMYCIN 250 MG TABS 2 po qd x 1 day, then 1 po qd x 4 days AZITHROMYCIN 82583886322 No Longer Active Checo Conklin MD Active PREDNISONE 20 MG TAB 2 tabs daily for 3 days, 1 t ab daily for 3 days, 1/2 tab daily for 2 days PREDNISONE 15251284115 No Longer Active Checo Conklin MD Active ZITHROMAX Z-KARTHIK 250 MG TABS 2 today, then 1 daily for 4 days 201 09/18/28 AZITHROMYCIN 00667056022 No Longer Active Paul Hamlin MD Active FOCALIN XR 10 MG [id number] 1 po q a.m. D EXMETHYLPHENIDATE HCL 90755090880 No Longer Active Paul Hamlin MD Activ e PERCOCET 10-325 MG TABS 1 tablet every 6 hours as needed for pain OXYCODONE-ACETAMINOPHEN 98538860684 No Longer Active Paul Hamlin MD Active LORTAB 5 5-500 MG TABS 1/2 to 1 tablet by mouth flaquito ry 4 hours as needed for pain HYDROCODONE-ACETAMINOPHEN 06550677519 No Longer Active Checo Conklin MD Active FOCALIN XR 15 MG [id number] 1 po q a.m. D EXMETHYLPHENIDATE HCL 86279559360 No Longer Active Checo Conklin MD Activ e ZOFRAN ODT 4 MG TBDP 1 po q6hr PRN Nausea ONDAN SETRON 83856859187 No Longer Active Checo Conklin MD Active PERCOCET 5-325 MG TABS 1 tablet by mouth every 6 hours as needed OXYCODONE-ACETAMINOPHEN 56626586805 No Longer Active Checo Conklin MD Active PYRIDIUM 200 MG TABS take 1 tab po TID prn urinary pain. 0 PHENAZOPYRIDINE HCL 22866807007 No Longer Active Checo Conklin MD Active FLUCONAZOLE 150 MG TABS take 1 tab po qday once 0 04/06 FLUCONAZOLE 04917670208 No Longer Active Dangelo Rangel MD Acti ve CIPRO 500 MG TAB 1 tablet by mouth twice daily CIPROFLOXACIN HCL 95392436606 No Longer Active Dangelo Rangel MD Active PYRIDIUM 200 MG TABS take 1 tab po TID prn urinary pain. 0 PYRIDIUM 200 MG TABS 9254976 PHENAZOPYRIDINE HCL Inactive PERCOCET 5-325 MG TABS 1 tablet by mouth every 6 hours as needed PERCOCET 5-325 MG TABS 9997778 OXYCODONE-ACETAMINOPHEN I nactive ZOFRAN ODT 4 MG TBDP 1 po q6hr PRN Nausea ZOFRAN ODT 4 MG TBDP 304831 ONDANSETRON Inactive FOCALIN XR 15 MG [id number] 1 po q a.m. F OCALIN XR 15 MG [id number] DEXMETHYLPHENIDATE HCL Inactive LORTAB 5 5-500 MG TABS 1/2 to 1 tablet by mouth flaquito ry 4 hours as needed for pain LORTAB 5 5-500 MG TABS HYDROCODONE-A CETAMINOPHEN Inactive PERCOCET 10-325 MG TABS 1 tablet every 6 hours as needed for pain PERCOCET 10-325 MG TABS 1666071 OXYCODONE-ACETAMINOPHEN Inactive FOCALIN XR 10 MG [id number] 1 po q a.m. F OCALIN XR 10 MG [id number] DEXMETHYLPHENIDATE HCL Inactive CEFDINIR 300 MG CAPS 1 po bid CEFDINIR 300 MG CAPS 20 0346 CEFDINIR Inactive ANTIPYRINE-BENZOCAINE 5.4-1.4 % SOLN 1-2 drops in affected ear ANTIPYRINE-BENZOCAINE 5.4-1.4 % SOLN 377576 BENZOCAINE-ANTIPYRINE I nactive FLONASE 50 MCG/ACT SUSP [...] PRN Insomnia TRAZODONE HCL 100 MG TAB 040992 TRAZODONE HCL Inactive CONCERTA 18 MG CR-TABS [...] s prn cough HYDROCODONE-ACETAMINOPHEN 5-325 MG TABS 906747 HYDROCODONE-ACETAMINOPHEN Inactive PHENAZOPYRIDINE HCL 200 MG TABS take 1 tab po TID for bladder pa in PHENAZOPYRIDINE HCL 200 MG TABS 6211375 PHENAZOPYRIDINE HCL Inactive HYDROCODONE-ACETAMINOPHEN 5-325 MG TABS 1 po q 6hr PRN Pain 2013 HYDROCODONE-ACETAMINOPHEN 5-325 MG TABS 106838 HYDROCODONE-ACETAMINOPHEN Inactive CELEXA 20 MG TABS 1 tablet by mouth daily CELEXA 20 MG TABS 454510 CITALOPRAM HYDROBROMIDE Inactive REGLAN 10 MG TAB 1 po TID PRN Nausea REGLAN 10 MG TAB 452175 METOCLOPRAMIDE HCL Inactive LAMISIL 250 MG TAB 1 po qd LAMISIL 250 MG TAB 461664 TERBINAFINE HCL Inactive DICLOFENAC SODIUM 75 MG TBEC 1 tablet by mouth twice daily P RN Knee pain DICLOFENAC SODIUM 75 MG TBEC 984174 DICLOFENAC S ODIUM Inactive METOCLOPRAMIDE HCL 10 MG ORAL TABS take one PO tid PRN nausea 20 29/12/14 METOCLOPRAMIDE HCL 10 MG ORAL TABS 667164 METOCLOPRAMID E HCL Inactive TERBINAFINE HCL 250 MG ORAL TABS take one table PO one time abran y TERBINAFINE HCL 250 MG ORAL TABS 953522 TERBINAFINE HCL Inactive BUPROPION HCL ER (SR) 100 MG ORAL [id number] take one t ablet by mouth one time daily for one week then take 1 two times daily BUPROPION HCL ER (SR) 100 MG ORAL [id number] BUPROPION HCL Inacti ve TRAVEL SICKNESS 25 MG ORAL CHEW chew and swallow one t ablet every 6 hours as needed TRAVEL SICKNESS 25 MG ORAL CHEW 660593 MECLIZINE HCL Inactive SUMATRIPTAN SUCCINATE 100 MG ORAL TABS Take one PRN for migrane SUMATRIPTAN SUCCINATE 100 MG ORAL TABS 753502 SUMATRIPT AN SUCCINATE Inactive COMPRO 25 MG RECTAL SUPP insert or apply one supposit ory rectally as directed every 12 hours as needed for nausea COMP RO 25 MG RECTAL SUPP 569446 PROCHLORPERAZINE Inactive ONDANSETRON [address] one tablet on tongue and allow to dissolve every 6 hours as needed for vomitting ON DANSETRON 8 MG ORAL TBDP 307378 ONDANSETRON Inactive HYDROCODONE-ACETAMINOPHEN 5-325 MG TABS 0.5 to 1 tab b y mouth every 6 hours as needed HYDROCODONE-ACETAMINOPHEN 5-325 MG TABS 8 32316 HYDROCODONE-ACETAMINOPHEN Inactive BACTRIM DS 800-160 MG TAB 1 tab by mouth twice daily 2 BACTRIM DS 800-160 MG TAB 19820918 TRIMETHOPRIM-SULFAMETHOXAZOLE Inac tive DIFLUCAN 150 MG TAB 1 tablet by mouth if needed, hold until symptoms start DIFLUCAN 150 MG TAB 105892 FLUCONAZOLE Inactive IBUPROFEN 800 MG TABS 1 tab every 8 hours with food 31/03/21 IBUPROFEN 800 MG TABS 175281 IBUPROFEN Inactive HYDROCODONE-ACETAMINOPHEN 5-325 MG TABS 1 tab by mouth every 6 hours as needed HYDROCODONE-ACETAMINOPHEN 5-325 MG TABS 040593 HYDROCODONE-ACETAMINOPHEN Inactive BACTROBAN 2 % CREAM Apply to affected area BID for up to 10 days BACTROBAN 2 % CREAM 103917 MUPIROCIN CALCIUM Inactive MAGNESIUM CITRATE 1.745 GM/30ML ORAL SOLN 150ml po BID PRN C onstipation MAGNESIUM CITRATE 1.745 GM/30ML ORAL SOLN 459957 0 MAGNESIUM CITRATE Inactive DIFLUCAN 150 MG TAB 1 tablet by mouth qod DIFLUCAN 150 MG TAB 129696 FLUCONAZOLE Inactive BACTRIM DS 800-160 MG TAB 1 tab by mouth twice daily 2 BACTRIM DS 800-160 MG TAB 948965 TRIMETHOPRIM-SULFAMETHOXAZOLE Inac tive CIPRO 500 MG TAB 1 tablet by mouth twice daily CIPRO 500 MG TAB 642254 CIPROFLOXACIN HCL Inactive FLUCONAZOLE 150 MG TABS take 1 tab po qday once 04/06 FLUCONAZOLE 150 MG TABS 657013 FLUCONAZOLE Inactive ZITHROMAX Z-KARTHIK 250 MG TABS 2 today, then 1 daily for 4 days 201 09/18/28 ZITHROMAX Z-KARTHIK 250 MG TABS 8468970 AZITHROMYCIN Inac tive PREDNISONE 20 MG TAB 2 tabs daily for 3 days, 1 t ab daily for 3 days, 1/2 tab daily for 2 days PREDNISONE 20 MG TAB 941328 PREDNISON E Inactive AZITHROMYCIN 250 MG TABS 2 po qd x 1 day, then 1 po qd x 4 days AZITHROMYCIN 250 MG TABS 4082988 AZITHROMYCIN Inactiv e PREDNISONE 20 MG TAB 2 tabs daily for 3 days, 1 t ab daily for 3 days, 1/2 tab daily for 2 days PREDNISONE 20 MG TAB 362135 PREDNISON E Inactive CEFDINIR 300 MG CAPS by mouth twice a day CEFDINIR 300 MG CAPS 976917 CEFDINIR Inactive TRIAMCINOLONE ACETONIDE 0.1 % OINT Apply to affected a reas TID for up to 2 weeks TRIAMCINOLONE ACETONIDE 0.1 % OINT 747980 6 TRIAMCINOLONE ACETONIDE Inactive PREDNISONE 20 MG TAB 2 tabs daily for 3 days, 1 t ab daily for 3 days, 1/2 tab daily for 2 days PREDNISONE 20 MG TAB 400616 PREDNISON E Inactive BACTRIM DS 800-160 MG TABS 1 po BID x 7 days 0 BACTRIM DS 800-160 MG TABS 857516 SULFAMETHOXAZOLE-TRIMETHOPRIM Inactive CIPRO 500 MG TAB 1 tablet by mouth twice daily CIPRO 500 MG TAB 698618 CIPROFLOXACIN HCL Inactive AZITHROMYCIN 250 MG TABS 2 po qd x 1 day, then 1 po qd x 4 days AZITHROMYCIN 250 MG TABS 6238793 AZITHROMYCIN Inactiv e FLAGYL 500 MG TAB 1 tablet by mouth bid FLAGYL 500 MG TAB 354932 METRONIDAZOLE Inactive AZITHROMYCIN 250 MG TABS 2 po qd x 1 day, then 1 po qd x 4 days AZITHROMYCIN 250 MG TABS 5862008 AZITHROMYCIN Inactiv e Immunizations Vaccine Administration Date [...] ... - Chemistry sodium, serum 141 mmol/L 523-782 2553/01/26 carbon dioxide, venous blood 30.0 mmol/L 21.0-32 .0 potassium, serum 4.0 mmol/L 3.5-5.2 chloride, serum 105 mmol/L 98-107 blood glucose 85 mg/dL 65-110 urea nitrogen, blood 9 mg/dL 7-18 creatinine, serum 0.66 mg/dL 0.55-1.30 alanine aminotransferase (SGPT), serum 31 U/L 12-78 aspartate aminotransferase (SGOT), serum 21 U/L 15-37 calcium, serum 8.2 mg/dL 8.5-10.1 bilirubin, serum, total 1.10 mg/dL 0.00-1.00 cholesterol, serum 178 mg/dL 459-819 9013/01/26 triglyceride, serum, fasting 149 mg/dL 30-200 HDL [...] ... - Chemistry sodium, serum 137 mmol/L 502-809 3534/05/27 carbon dioxide, venous blood 29.1 mmol/L 21.0-32 [...] 5.0-8.5 Encounters Code Encounter Date Provider Facility CPT-91818 Level 2 Est. Patient 19:53:27 CDT Tanner hill MD [facility] CPT-38743 Level 3 Est. Patient 09:15:34 CDT Efren almendarez [facility] [place] CPT-25785 Level 3 Est. Patient 11:28:51 [employer]OL[employer] T[employer]RNAMENT CONSULTANT Efren almendarez [facility] [place] CPT-81948 Level 4 Est. Patient 13:55:46 GOLF TOURNAMENT CONSULTANT Checo Conklin MD [facility] CPT-85391 Level 4 Est. Patient 17:10:53 CDT Checo Conklin MD [facility] CPT-67091 Level 3 Est. Patient 15:56:22 CDT Checo Conklin MD [facility] CPT-97267 Level 3 Est. Patient 15:29:07 CDT Checo Conklin MD [facility] CPT-34977 Level 3 Est. Patient 14:38:41 CDT Checo Conklin MD [facility] CPT-83327 Level 3 Est. Patient 15:22:03 GOLF TOURNAMENT CONSULTANT Thomas reynolds DO [facility] CPT-74138 Level 3 Est. Patient 13:34:17 GOLF TOURNAMENT CONSULTANT Checo Conklin MD [facility] CPT-01161 Level 3 Est. Patient 12:29:32 CDT Dangelo arroyo MD [facility] CPT-14787 Level 3 Est. Patient 16:53:02 CDT Checo Conklin MD [facility] CPT-87944 Level 3 Est. Patient 16:37:13 CDT Checo Conklin MD [facility] CPT-52790 Level 3 Est. Patient 16:16:59 CDT Paul Hamlin MD [facility] CPT-67494 Level 3 Est. Patient 14:20:13 CDT Dangelo arroyo MD [facility] CPT-73978 Level 4 Est. Patient 11:29:33 CDT Checo Conklin MD [facility] CPT-44758 Level 3 Est. Patient 17:08:31 CDT Checo Conklin MD [facility] CPT-26754 Level 3 Est. Patient 16:50:42 GOLF TOURNAMENT CONSULTANT Checo Conklin MD [facility] CPT-17731 Level 4 Est. Patient 09:26:08 GOLF TOURNAMENT CONSULTANT Checo Conklin MD [facility] CPT-08623 Level 3 Est. Patient 11:37:10 CDT Checo Conklin MD [facility] CPT-10790 Level 4 Est. Patient 14:07:38 CDT Checo Conklin MD [facility] CPT-38604 Level 3 Est. Patient 09:54:41 CDT Checo Conklin MD [facility] CPT-16826 Level 3 Est. Patient 11:10:54 CDT Paul Hamlin MD [facility] CPT-96738 Level 3 Est. Patient 14:16:56 [employer]OL[employer] TOURNAMENT CONSULTANT Checo Conklin MD [facility] CPT-35057 Level 3 Est. Patient 11:04:11 GOLF TOURNAMENT CONSULTANT Checo Conklin MD [facility] CPT-42954 Level 3 Est. Patient 17:09:26 CDT Dangelo arroyo MD [facility] CPT-57972 Level 3 Est. Patient 16:54:37 CDT Checo Conklin MD [facility] Procedures Code Procedure Name Date Entry Date Standard Desc ription CPT-LR Lesion Removal 19:53:27 CDT CPT-OV Office Visit 11:31:28 CDT CPT-85936 Tubersol 09:39:29 CDT CPT-J2550 Phenergan 25 mg (Promethazine) 13:59:02 GOLF T[employer]RNAMENT CONSULTANT CPT-J1885 Toradol 60 mg (Ketorolac) 13:59:02 GOLF TOURNAMENT CONSULTANT 2012
--- OUTSIDE RECORDS SUMMARY | 2019-09-29 02:14 | XMS REPORT | Clinical Summary ---
Author Author Admin, Bethany Ayala [facility] Address Unknown Phone Unavailable Allergies, Adverse Reactions, [...] right lower quadrant HEADACHE, TENSION 307.81 Resolved Cheoc Conklin MD Tension headache PHARYNGITIS 462 Resolved [...] mention of infection Carbuncle/furuncle NOS 680.9 Resolved Lneora Conklin MD Carbuncle and furuncle of unspecified [...] vulvovaginitis, unspecified Pharyngitis 462 Active Jillina Frazell SANDBLAST OPERATOR Acute pharyngitis Cough 786.2 Active Jillina Frasandra SANDBLAST OPERATOR Cough Pedal edema 782.3 Active Jillina Frazell SANDBLAST OPERATOR Edema NEOPLASM OF UNCERTAIN BEHAVIOR OF [...] tab by mouth twice daily 2 TRIMETHOPRIM-SULFAMETHOXAZOLE 14251571461 No Longer Active Tanner Carrillo MD Active DIFLUCAN 150 MG TAB 1 tablet by mouth qod FLUCO NAZOLE 97095962549 No Longer Active Efren Medel APRN Active CLARITIN 10 MG TAB 1 tablet by mouth daily as needed for allergies LORATADINE 99051264276 Active Efren Medel SANDBLAST OPERATOR Active AZITHROMYCIN 250 MG TABS 2 po qd x 1 day, then 1 po qd x 4 days AZITHROMYCIN 99622677640 No Longer Active Jillina Lizy RIDDLEN Active FLAGYL 500 MG TAB 1 tablet by mouth bid METRONI DAZOLE 99126515657 No Longer Active Checo Conklin MD Active FOCALIN XR 10 MG ORAL [id number] 1 po q a.m. DEX METHYLPHENIDATE HCL 21818052250 Active Checo Conklin MD Active MAGNESIUM CITRATE 1.745 GM/30ML ORAL SOLN 150ml po BID PRN C onstipation MAGNESIUM CITRATE 61053527871 No Longer Active Checo Conklin MD Active BACTROBAN 2 % CREAM Apply to affected area BID for up to 10 days MUPIROCIN CALCIUM 28297148938 No Longer Active Checo Conklin MD Active HYDROCODONE-ACETAMINOPHEN 5-325 MG TABS 1 tab by mouth every 6 hours as needed HYDROCODONE-ACETAMINOPHEN 90833085350 No Longer Activ e Checo Conklin MD Active IBUPROFEN 800 MG TABS 1 tab every 8 hours with food 20 31/03/21 IBUPROFEN 26723886295 No Longer Active Checo Conklin MD Activ e DIFLUCAN 150 MG TAB 1 tablet by mouth if needed, hold until symptoms start FLUCONAZOLE 19150064603 No Longer Active Checo Ortiz MD Active BACTRIM DS 800-160 MG TAB 1 tab by mouth twice daily 2 TRIMETHOPRIM-SULFAMETHOXAZOLE 99600409026 No Longer Active Corry leong LPN Active MIRALAX PACK 1 po qd PRN Constipation POLYETHYL JOEL GLYCOL 3350 60793301393 Active Checo Conklin MD Active HYDROCODONE-ACETAMINOPHEN 5-325 MG TABS 0.5 to 1 tab b y mouth every 6 hours as needed HYDROCODONE-ACETAMINOPHEN 60664704440 No Longer Active Checo Conklin MD Active ONDANSETRON [address] one tablet on tongue and allow to dissolve every 6 hours as needed for vomitting ONDANSETRO N 97581830178 No Longer Active Checo Conklin MD Active COMPRO 25 MG RECTAL SUPP insert or apply one supposit ory rectally as directed every 12 hours as needed for nausea PROCHLORPERA ZINE 56250731474 No Longer Active Checo Conklin MD Active SUMATRIPTAN SUCCINATE 100 MG ORAL TABS Take one PRN for migrane SUMATRIPTAN SUCCINATE 54807743420 No Longer Active Checo Conklin MD Active TRAVEL SICKNESS 25 MG ORAL CHEW chew and swallow one t ablet every 6 hours as needed MECLIZINE HCL 51617396714 No Longer Active Joe Conklin MD Active BUPROPION HCL ER (SR) 100 MG ORAL [id number] take one t ablet by mouth one time daily for one week then take 1 two times daily BUPROPION HCL 79178862428 No Longer Active Checo Conklin MD Activ e TERBINAFINE HCL 250 MG ORAL TABS take one table PO one time abran y TERBINAFINE HCL 95920470577 No Longer Active Checo Conklin MD Active METOCLOPRAMIDE HCL 10 MG ORAL TABS take one PO tid PRN nausea 20 29/12/14 METOCLOPRAMIDE HCL 81310976521 No Longer Active Checo Conklin MD Active DICLOFENAC SODIUM 75 MG TBEC 1 tablet by mouth twice daily P RN Knee pain DICLOFENAC SODIUM 25576661787 No Longer Active Checo Conklin MD Active LAMISIL 250 MG TAB 1 po qd TERBINAFINE HCL 548 26995559 No Longer Active Checo Conklin MD Active REGLAN 10 MG TAB 1 po TID PRN Nausea METOCLOPRA MIDE HCL 37565728038 No Longer Active Checo Conklin MD Active CELEXA 20 MG TABS 1 tablet by mouth daily CITALOPRAM HYDROBROMIDE 13593756485 No Longer Active Checo Conklin MD Activ e AZITHROMYCIN 250 MG TABS 2 po qd x 1 day, then 1 po qd x 4 days AZITHROMYCIN 46146686437 No Longer Active Checo Conklin MD Active HYDROCODONE-ACETAMINOPHEN 5-325 MG TABS 1 po q 6hr PRN Pain 2013 HYDROCODONE-ACETAMINOPHEN 22179892420 No Longer Active Lenora Conklin MD Active PHENAZOPYRIDINE HCL 200 MG TABS take 1 tab po TID for bladder pa in PHENAZOPYRIDINE HCL 04411278002 No Longer Active Cehco Joshua Active CIPRO 500 MG TAB 1 tablet by mouth twice daily CIPROFLOXACIN HCL 76025687473 No Longer Active Dangelo Rangel MD Active HYDROCODONE-ACETAMINOPHEN 5-325 MG TABS 1/2 to 1 po q 4 hour s prn cough HYDROCODONE-ACETAMINOPHEN 06274855659 No Longer Activ e Dangelo Rangel MD Active BACTRIM DS 800-160 MG TABS 1 po BID x 7 days 0 SULFAMETHOXAZOLE-TRIMETHOPRIM 55856846289 No Longer Active Checo Conklin MD Active PREDNISONE 20 MG TAB 2 tabs daily for 3 days, 1 t ab daily for 3 days, 1/2 tab daily for 2 days PREDNISONE 52411280030 No Longer Active Checo Conklin MD Active TRIAMCINOLONE ACETONIDE 0.1 % OINT Apply to affected a reas TID for up to 2 weeks TRIAMCINOLONE ACETONIDE 57950133816 No Longer A ctive Checo Conklin MD Active CEFDINIR 300 MG CAPS by mouth twice a day CEFDI JAZZY 41350344589 No Longer Active Dangelo Rangel MD Active BUPROPION HCL (SMOKING DETER) 150 MG [id number] 1 a day for 1 week then 1 twice a day BUPROPION HCL (SMOKING DETER) 71815225623 No Lo nger Active Checo Conklin MD Active SIMVASTATIN 20 MG TABS 1 po qd SIMVASTATIN 4127097538 5 Active Checo Conklin MD Active CHANTIX STARTING MONTH KARTHIK 0.5 MG X 11 & 1 MG X 42 TAB S 0.5mg daily for 3 days, then 0.5mg BID for 4 days, then 1mg BID VARENICLINE TARTRATE 69406594863 No Longer Active Checo Conklin MD Activ e XANAX 0.5 MG TABS 1 po BID PRN anxiety ALPRAZOLAM 76615939410 Active Checo Conklin MD Active CONCERTA 18 MG CR-TABS 1 po q a.m. METHYLPHENID ATE HCL 68198013716 No Longer Active Checo Conklin MD Active AMBIEN 5 MG TAB 1 po qHS PRN Insomnia ZOLPIDEM TARTRATE 79349674932 Active Checo Conklin MD Active TRAZODONE HCL 100 MG TAB 0.5 to 1 po qHS PRN Insomnia TRAZODONE HCL 33759266833 No Longer Active Checo Conklin MD Acti ve FIORICET 325-50-40 MG TAB 1 tablet by mouth four times daily as needed [id number] 20369307673 No Longer Active Checo Conklin MD Active PHENERGAN CREAM* 25mg applied to wrist q6hr PRN Nausea PHENERGAN CREAM* No Longer Active Checo Conklin MD A ctive FLONASE 50 MCG/ACT SUSP 1 spray each nostril am and hs FLUTICASONE PROPIONATE 83553239348 No Longer Active Checo Conklin MD Activ e ANTIPYRINE-BENZOCAINE 5.4-1.4 % SOLN 1-2 drops in affected ear BENZOCAINE-ANTIPYRINE 04979914295 No Longer Active Checo Conklin MD Active CEFDINIR 300 MG CAPS 1 po bid CEFDINIR 58711699 120 No Longer Active Checo Conklin MD Active PREDNISONE 20 MG TAB 2 tabs daily for 3 days, 1 t ab daily for 3 days, 1/2 tab daily for 2 days PREDNISONE 36916748523 No Longer Active Aracelis Conklin MD Active AZITHROMYCIN 250 MG TABS 2 po qd x 1 day, then 1 po qd x 4 days AZITHROMYCIN 28916768985 No Longer Active Checo Conklin MD Active PREDNISONE 20 MG TAB 2 tabs daily for 3 days, 1 t ab daily for 3 days, 1/2 tab daily for 2 days PREDNISONE 01211034526 No Longer Active Checo Conklin MD Active ZITHROMAX Z-KARTHIK 250 MG TABS 2 today, then 1 daily for 4 days 201 09/18/28 AZITHROMYCIN 91884502577 No Longer Active Paul Hamlin MD Active FOCALIN XR 10 MG [id number] 1 po q a.m. D EXMETHYLPHENIDATE HCL 59098574463 No Longer Active Paul Hamlin MD Activ e PERCOCET 10-325 MG TABS 1 tablet every 6 hours as needed for pain OXYCODONE-ACETAMINOPHEN 99616436320 No Longer Active Paul Hamlin MD Active LORTAB 5 5-500 MG TABS 1/2 to 1 tablet by mouth flaquito ry 4 hours as needed for pain HYDROCODONE-ACETAMINOPHEN 45279907544 No Longer Active Checo Conklin MD Active FOCALIN XR 15 MG [id number] 1 po q a.m. D EXMETHYLPHENIDATE HCL 37802816625 No Longer Active Checo Conklin MD Activ e ZOFRAN ODT 4 MG TBDP 1 po q6hr PRN Nausea ONDAN SETRON 06854968485 No Longer Active Checo Conklin MD Active PERCOCET 5-325 MG TABS 1 tablet by mouth every 6 hours as needed OXYCODONE-ACETAMINOPHEN 55320146580 No Longer Active Checo Conklin MD Active PYRIDIUM 200 MG TABS take 1 tab po TID prn urinary pain. 0 PHENAZOPYRIDINE HCL 70832429693 No Longer Active Checo Conklin MD Active FLUCONAZOLE 150 MG TABS take 1 tab po qday once 0 04/06 FLUCONAZOLE 84228494968 No Longer Active Dangelo Rangel MD Acti ve CIPRO 500 MG TAB 1 tablet by mouth twice daily CIPROFLOXACIN HCL 74809179145 No Longer Active Dangelo Rangel MD Active PYRIDIUM 200 MG TABS take 1 tab po TID prn urinary pain. 0 PYRIDIUM 200 MG TABS 9495601 PHENAZOPYRIDINE HCL Inactive PERCOCET 5-325 MG TABS 1 tablet by mouth every 6 hours as needed PERCOCET 5-325 MG TABS 6797180 OXYCODONE-ACETAMINOPHEN I nactive ZOFRAN ODT 4 MG TBDP 1 po q6hr PRN Nausea ZOFRAN ODT 4 MG TBDP 764886 ONDANSETRON Inactive FOCALIN XR 15 MG [id number] 1 po q a.m. F OCALIN XR 15 MG [id number] DEXMETHYLPHENIDATE HCL Inactive LORTAB 5 5-500 MG TABS 1/2 to 1 tablet by mouth flaquito ry 4 hours as needed for pain LORTAB 5 5-500 MG TABS HYDROCODONE-A CETAMINOPHEN Inactive PERCOCET 10-325 MG TABS 1 tablet every 6 hours as needed for pain PERCOCET 10-325 MG TABS 1289979 OXYCODONE-ACETAMINOPHEN Inactive FOCALIN XR 10 MG [id number] 1 po q a.m. F OCALIN XR 10 MG [id number] DEXMETHYLPHENIDATE HCL Inactive CEFDINIR 300 MG CAPS 1 po bid CEFDINIR 300 MG CAPS 20 0346 CEFDINIR Inactive ANTIPYRINE-BENZOCAINE 5.4-1.4 % SOLN 1-2 drops in affected ear ANTIPYRINE-BENZOCAINE 5.4-1.4 % SOLN 009125 BENZOCAINE-ANTIPYRINE I nactive FLONASE 50 MCG/ACT SUSP [...] PRN Insomnia TRAZODONE HCL 100 MG TAB 541615 TRAZODONE HCL Inactive CONCERTA 18 MG CR-TABS [...] s prn cough HYDROCODONE-ACETAMINOPHEN 5-325 MG TABS 707999 HYDROCODONE-ACETAMINOPHEN Inactive PHENAZOPYRIDINE HCL 200 MG TABS take 1 tab po TID for bladder pa in PHENAZOPYRIDINE HCL 200 MG TABS 6952252 PHENAZOPYRIDINE HCL Inactive HYDROCODONE-ACETAMINOPHEN 5-325 MG TABS 1 po q 6hr PRN Pain 2013 HYDROCODONE-ACETAMINOPHEN 5-325 MG TABS 571508 HYDROCODONE-ACETAMINOPHEN Inactive CELEXA 20 MG TABS 1 tablet by mouth daily CELEXA 20 MG TABS 561021 CITALOPRAM HYDROBROMIDE Inactive REGLAN 10 MG TAB 1 po TID PRN Nausea REGLAN 10 MG TAB 378345 METOCLOPRAMIDE HCL Inactive LAMISIL 250 MG TAB 1 po qd LAMISIL 250 MG TAB 406723 TERBINAFINE HCL Inactive DICLOFENAC SODIUM 75 MG TBEC 1 tablet by mouth twice daily P RN Knee pain DICLOFENAC SODIUM 75 MG TBEC 640418 DICLOFENAC S ODIUM Inactive METOCLOPRAMIDE HCL 10 MG ORAL TABS take one PO tid PRN nausea 20 29/12/14 METOCLOPRAMIDE HCL 10 MG ORAL TABS 082339 METOCLOPRAMID E HCL Inactive TERBINAFINE HCL 250 MG ORAL TABS take one table PO one time abran y TERBINAFINE HCL 250 MG ORAL TABS 452907 TERBINAFINE HCL Inactive BUPROPION HCL ER (SR) 100 MG ORAL [id number] take one t ablet by mouth one time daily for one week then take 1 two times daily BUPROPION HCL ER (SR) 100 MG ORAL [id number] BUPROPION HCL Inacti ve TRAVEL SICKNESS 25 MG ORAL CHEW chew and swallow one t ablet every 6 hours as needed TRAVEL SICKNESS 25 MG ORAL CHEW 272244 MECLIZINE HCL Inactive SUMATRIPTAN SUCCINATE 100 MG ORAL TABS Take one PRN for migrane SUMATRIPTAN SUCCINATE 100 MG ORAL TABS 709566 SUMATRIPT AN SUCCINATE Inactive COMPRO 25 MG RECTAL SUPP insert or apply one supposit ory rectally as directed every 12 hours as needed for nausea COMP RO 25 MG RECTAL SUPP 719695 PROCHLORPERAZINE Inactive ONDANSETRON [address] one tablet on tongue and allow to dissolve every 6 hours as needed for vomitting ON DANSETRON 8 MG ORAL TBDP 157168 ONDANSETRON Inactive HYDROCODONE-ACETAMINOPHEN 5-325 MG TABS 0.5 to 1 tab b y mouth every 6 hours as needed HYDROCODONE-ACETAMINOPHEN 5-325 MG TABS 8 82812 HYDROCODONE-ACETAMINOPHEN Inactive BACTRIM DS 800-160 MG TAB 1 tab by mouth twice daily 2 BACTRIM DS 800-160 MG TAB 19820918 TRIMETHOPRIM-SULFAMETHOXAZOLE Inac tive DIFLUCAN 150 MG TAB 1 tablet by mouth if needed, hold until symptoms start DIFLUCAN 150 MG TAB 188693 FLUCONAZOLE Inactive IBUPROFEN 800 MG TABS 1 tab every 8 hours with food 31/03/21 IBUPROFEN 800 MG TABS 211475 IBUPROFEN Inactive HYDROCODONE-ACETAMINOPHEN 5-325 MG TABS 1 tab by mouth every 6 hours as needed HYDROCODONE-ACETAMINOPHEN 5-325 MG TABS 782666 HYDROCODONE-ACETAMINOPHEN Inactive BACTROBAN 2 % CREAM Apply to affected area BID for up to 10 days BACTROBAN 2 % CREAM 468547 MUPIROCIN CALCIUM Inactive MAGNESIUM CITRATE 1.745 GM/30ML ORAL SOLN 150ml po BID PRN C onstipation MAGNESIUM CITRATE 1.745 GM/30ML ORAL SOLN 958169 0 MAGNESIUM CITRATE Inactive DIFLUCAN 150 MG TAB 1 tablet by mouth qod DIFLUCAN 150 MG TAB 382654 FLUCONAZOLE Inactive BACTRIM DS 800-160 MG TAB 1 tab by mouth twice daily 2 BACTRIM DS 800-160 MG TAB 422151 TRIMETHOPRIM-SULFAMETHOXAZOLE Inac tive CIPRO 500 MG TAB 1 tablet by mouth twice daily CIPRO 500 MG TAB 164182 CIPROFLOXACIN HCL Inactive FLUCONAZOLE 150 MG TABS take 1 tab po qday once 04/06 FLUCONAZOLE 150 MG TABS 502645 FLUCONAZOLE Inactive ZITHROMAX Z-KARTHIK 250 MG TABS 2 today, then 1 daily for 4 days 201 09/18/28 ZITHROMAX Z-KARTHIK 250 MG TABS 2351489 AZITHROMYCIN Inac tive PREDNISONE 20 MG TAB 2 tabs daily for 3 days, 1 t ab daily for 3 days, 1/2 tab daily for 2 days PREDNISONE 20 MG TAB 825820 PREDNISON E Inactive AZITHROMYCIN 250 MG TABS 2 po qd x 1 day, then 1 po qd x 4 days AZITHROMYCIN 250 MG TABS 0015679 AZITHROMYCIN Inactiv e PREDNISONE 20 MG TAB 2 tabs daily for 3 days, 1 t ab daily for 3 days, 1/2 tab daily for 2 days PREDNISONE 20 MG TAB 435894 PREDNISON E Inactive CEFDINIR 300 MG CAPS by mouth twice a day CEFDINIR 300 MG CAPS 168107 CEFDINIR Inactive TRIAMCINOLONE ACETONIDE 0.1 % OINT Apply to affected a reas TID for up to 2 weeks TRIAMCINOLONE ACETONIDE 0.1 % OINT 818470 6 TRIAMCINOLONE ACETONIDE Inactive PREDNISONE 20 MG TAB 2 tabs daily for 3 days, 1 t ab daily for 3 days, 1/2 tab daily for 2 days PREDNISONE 20 MG TAB 367734 PREDNISON E Inactive BACTRIM DS 800-160 MG TABS 1 po BID x 7 days 0 BACTRIM DS 800-160 MG TABS 640200 SULFAMETHOXAZOLE-TRIMETHOPRIM Inactive CIPRO 500 MG TAB 1 tablet by mouth twice daily CIPRO 500 MG TAB 465223 CIPROFLOXACIN HCL Inactive AZITHROMYCIN 250 MG TABS 2 po qd x 1 day, then 1 po qd x 4 days AZITHROMYCIN 250 MG TABS 4038296 AZITHROMYCIN Inactiv e FLAGYL 500 MG TAB 1 tablet by mouth bid FLAGYL 500 MG TAB 078358 METRONIDAZOLE Inactive AZITHROMYCIN 250 MG TABS 2 po qd x 1 day, then 1 po qd x 4 days AZITHROMYCIN 250 MG TABS 2825914 AZITHROMYCIN Inactiv e Immunizations Vaccine Administration Date [...] ... - Chemistry sodium, serum 141 mmol/L 710-700 0462/01/26 carbon dioxide, venous blood 30.0 mmol/L 21.0-32 .0 potassium, serum 4.0 mmol/L 3.5-5.2 chloride, serum 105 mmol/L 98-107 blood glucose 85 mg/dL 65-110 urea nitrogen, blood 9 mg/dL 7-18 creatinine, serum 0.66 mg/dL 0.55-1.30 alanine aminotransferase (SGPT), serum 31 U/L 12-78 aspartate aminotransferase (SGOT), serum 21 U/L 15-37 calcium, serum 8.2 mg/dL 8.5-10.1 bilirubin, serum, total 1.10 mg/dL 0.00-1.00 cholesterol, serum 178 mg/dL 812-047 9280/01/26 triglyceride, serum, fasting 149 mg/dL 30-200 HDL [...] ... - Chemistry sodium, serum 137 mmol/L 412-968 3626/05/27 carbon dioxide, venous blood 29.1 mmol/L 21.0-32 [...] 5.0-8.5 Encounters Code Encounter Date Provider Facility CPT-84195 Level 2 Est. Patient 19:53:27 CDT Tanner hill MD [facility] CPT-15054 Level 3 Est. Patient 09:15:34 CDT Efren almendarez [facility] CPT-98854 Level 3 Est. Patient 11:28:51 SMALL BUSINESS CONSULTANT Efren almendarez [facility] CPT-78254 Level 4 Est. Patient 13:55:46 SMALL BUSINESS CONSULTANT Checo Conklin MD [facility] CPT-02522 Level 4 Est. Patient 17:10:53 CDT Checo Conklin MD [facility] CPT-60048 Level 3 Est. Patient 15:56:22 CDT Checo Conklin MD [facility] CPT-72408 Level 3 Est. Patient 15:29:07 CDT Checo Conklin MD [facility] CPT-02948 Level 3 Est. Patient 14:38:41 CDT Checo Conklin MD [facility] CPT-35154 Level 3 Est. Patient 15:22:03 SMALL BUSINESS CONSULTANT Thomas reynolds DO [facility] CPT-72599 Level 3 Est. Patient 13:34:17 SMALL BUSINESS CONSULTANT Checo Conklin MD [facility] CPT-71751 Level 3 Est. Patient 12:29:32 CDT Dangelo arroyo MD [facility] CPT-17440 Level 3 Est. Patient 16:53:02 CDT Checo Conklin MD [facility] CPT-20239 Level 3 Est. Patient 16:37:13 CDT Checo Conklin MD [facility] CPT-92303 Level 3 Est. Patient 16:16:59 CDT Paul Hamlin MD [facility] CPT-35383 Level 3 Est. Patient 14:20:13 CDT Dangelo arroyo MD [facility] CPT-27763 Level 4 Est. Patient 11:29:33 CDT Checo Conklin MD [facility] CPT-51515 Level 3 Est. Patient 17:08:31 CDT Checo Conklin MD [facility] CPT-20185 Level 3 Est. Patient 16:50:42 SMALL BUSINESS CONSULTANT Checo Conklin MD [facility] CPT-45808 Level 4 Est. Patient 09:26:08 SMALL BUSINESS CONSULTANT Checo Conklin MD [facility] CPT-76111 Level 3 Est. Patient 11:37:10 CDT Checo Conklin MD [facility] CPT-28083 Level 4 Est. Patient 14:07:38 CDT Checo Conklin MD [facility] CPT-30493 Level 3 Est. Patient 09:54:41 CDT Checo Conklin MD [facility] CPT-80494 Level 3 Est. Patient 11:10:54 CDT Paul Hamlin MD [facility] CPT-48367 Level 3 Est. Patient 14:16:56 SMALL BUSINESS CONSULTANT Checo Conklin MD [facility] CPT-64780 Level 3 Est. Patient 11:04:11 SMALL BUSINESS CONSULTANT Checo Conklin MD [facility] CPT-39304 Level 3 Est. Patient 17:09:26 CDT Dangelo arroyo MD [facility] CPT-72224 Level 3 Est. Patient 16:54:37 CDT Checo Conklin MD [facility] Procedures Code Procedure Name Date Entry Date Standard Desc ription CPT-LR Lesion Removal 19:53:27 CDT CPT-OV Office Visit 11:31:28 CDT CPT-18712 Tubersol 09:39:29 CDT CPT-J2550 Phenergan 25 mg (Promethazine) 13:59:02 SMALL BUSINESS CONSULTANT CPT-J1885 Toradol 60 mg (Ketorolac) 13:59:02 SMALL BUSINESS CONSULTANT 2012
--- OUTSIDE RECORDS SUMMARY | 2019-09-29 02:15 | XMS REPORT | Clinical Summary ---
Author Author Admin, Bethany Gonzales Organization [employer] Address Unknown Phone Unavailable Allergies, Adverse Reactions, [...] 2013 PHARYNGITIS ICD-462 Inactive Checo Conklin MD Onychomycosis, toenails ICD-110.1 Inactive Aracelis Conklin MD Hypoglycemia, unspecified ICD-251.2 Inactive Checo Conklin MD Insomnia ICD-780.52 Inactive Checo Joshua Breast mass, right ICD-611.72 Inactive Checo Conklin MD HEADACHE, TENSION ICD-307.81 Inactive Checo Conklin MD OTITIS MEDIA-RIGHT ICD-382.9 Inactive Checo Conklin MD Insect bite ICD-919.4 [...] Joshua Sinusitis ICD-461.9 Inactive Checo Conklin MD Pedal edema ICD-782.3 Inactive Checo Conklin MD 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 Checo Conklin MD Abdominal pain, generalized ICD-789.07 Inactive Checo Conklin MD Urinary frequency ICD-788.41 Inactive Checo Conklin MD Pharyngitis ICD-462 Inactive Checo Conklin MD Cough ICD-786.2 Inactive Checo Conklin MD 2016 Sinusitis, acute ICD-461.9 Inactive Checo Ortiz MD Medication List Medication Instructions Start Date Stop Date Generic Name NDC Status Provider Patient Instruction PAROXETINE HCL 20 MG ORAL TABS 1.5 po qd PAROX ETINE HCL 13597985423 Active Checo Conklin MD Active FLUTICASONE PROPIONATE 50 MCG/ACT NASAL SUSP 2 sprays/ nostril qd PRN Congestion/Allergies FLUTICASONE PROPIONATE 3616992347 5 No Longer Active Checo Conklin MD Active AMOXICILLIN 500 MG ORAL CAPS 2 po BID x 10 days 09/12 AMOXICILLIN 11580754089 No Longer Active Checo Conklin MD Activ e MIRALAX ORAL POWD 8.5 to 17g po qd PRN Constipation POLYETHYLENE GLYCOL 3350 94264860559 Active Checo Conklin MD Active CLARITIN 10 MG TAB 1 tablet by mouth daily as needed for allergi es LORATADINE 11683821184 No Longer Active Checo Conklin MD Active BACTRIM DS 800-160 MG TAB 1 tab by mouth twice daily 2 TRIMETHOPRIM-SULFAMETHOXAZOLE 12093115616 No Longer Active Tanner Carrillo MD Active DIFLUCAN 150 MG TAB 1 tablet by mouth qod FLUCO NAZOLE 28949256090 No Longer Active Efren Medel APRN Active AZITHROMYCIN 250 MG TABS 2 po qd x 1 day, then 1 po qd x 4 days AZITHROMYCIN 71210664222 No Longer Active Efren Medel SOAP TENDER Active FLAGYL 500 MG TAB 1 tablet by mouth bid METRONI DAZOLE 75335217924 No Longer Active Checo Conklin MD Active FOCALIN XR 10 MG ORAL [id number] 1 po q a.m. DEX METHYLPHENIDATE HCL 91235244187 Active Checo Conklin MD Active MAGNESIUM CITRATE 1.745 GM/30ML ORAL SOLN 150ml po BID PRN C onstipation MAGNESIUM CITRATE 44668277206 No Longer Active Checo Conklin MD Active BACTROBAN 2 % CREAM Apply to affected area BID for up to 10 days MUPIROCIN CALCIUM 31669476384 No Longer Active Checo Conklin MD Active HYDROCODONE-ACETAMINOPHEN 5-325 MG TABS 1 tab by mouth every 6 hours as needed HYDROCODONE-ACETAMINOPHEN 29683816363 No Longer Activ e Checo Conklin MD Active IBUPROFEN 800 MG TABS 1 tab every 8 hours with food 20 31/03/21 IBUPROFEN 53853248476 No Longer Active Checo Conklin MD Activ e DIFLUCAN 150 MG TAB 1 tablet by mouth if needed, hold until symptoms start FLUCONAZOLE 94100611565 No Longer Active Checo Ortiz MD Active BACTRIM DS 800-160 MG TAB 1 tab by mouth twice daily 2 TRIMETHOPRIM-SULFAMETHOXAZOLE 71306927458 No Longer Active Corry leong LPN Active HYDROCODONE-ACETAMINOPHEN 5-325 MG TABS 0.5 to 1 tab b y mouth every 6 hours as needed HYDROCODONE-ACETAMINOPHEN 60409170230 No Longer Active Checo Conklin MD Active ONDANSETRON [address] one tablet on tongue and allow to dissolve every 6 hours as needed for vomitting ONDANSETRO N 97156051357 No Longer Active Checo Conklin MD Active COMPRO 25 MG RECTAL SUPP insert or apply one supposit ory rectally as directed every 12 hours as needed for nausea PROCHLORPERA ZINE 73339248672 No Longer Active Checo Conklin MD Active SUMATRIPTAN SUCCINATE 100 MG ORAL TABS Take one PRN for migrane SUMATRIPTAN SUCCINATE 14370602600 No Longer Active Checo Conklin MD Active TRAVEL SICKNESS 25 MG ORAL CHEW chew and swallow one t ablet every 6 hours as needed MECLIZINE HCL 13547206157 No Longer Active Joe Conklin MD Active BUPROPION HCL ER (SR) 100 MG ORAL [id number] take one t ablet by mouth one time daily for one week then take 1 two times daily BUPROPION HCL 66494364961 No Longer Active Checo Conklin MD Activ e TERBINAFINE HCL 250 MG ORAL TABS take one table PO one time abran y TERBINAFINE HCL 02777126570 No Longer Active Checo Conklin MD Active METOCLOPRAMIDE HCL 10 MG ORAL TABS take one PO tid PRN nausea 20 29/12/14 METOCLOPRAMIDE HCL 36896994796 No Longer Active Checo Conklin MD Active DICLOFENAC SODIUM 75 MG TBEC 1 tablet by mouth twice daily P RN Knee pain DICLOFENAC SODIUM 35558749575 No Longer Active Checo Conklin MD Active LAMISIL 250 MG TAB 1 po qd TERBINAFINE HCL 548 48125191 No Longer Active Checo Conklin MD Active REGLAN 10 MG TAB 1 po TID PRN Nausea METOCLOPRA MIDE HCL 17129420099 No Longer Active Checo Conklin MD Active CELEXA 20 MG TABS 1 tablet by mouth daily CITALOPRAM HYDROBROMIDE 21082170505 No Longer Active Checo Conklin MD Activ e AZITHROMYCIN 250 MG TABS 2 po qd x 1 day, then 1 po qd x 4 days AZITHROMYCIN 00297533858 No Longer Active Checo Conklin MD Active HYDROCODONE-ACETAMINOPHEN 5-325 MG TABS 1 po q 6hr PRN Pain 2013 HYDROCODONE-ACETAMINOPHEN 22156301837 No Longer Active Lenora Conklin MD Active PHENAZOPYRIDINE HCL 200 MG TABS take 1 tab po TID for bladder pa in PHENAZOPYRIDINE HCL 06411720412 No Longer Active Checo Joshua Active CIPRO 500 MG TAB 1 tablet by mouth twice daily CIPROFLOXACIN HCL 20202099298 No Longer Active Dangelo Rangel MD Active HYDROCODONE-ACETAMINOPHEN 5-325 MG TABS 1/2 to 1 po q 4 hour s prn cough HYDROCODONE-ACETAMINOPHEN 60794863583 No Longer Activ e Dangelo Rangel MD Active BACTRIM DS 800-160 MG TABS 1 po BID x 7 days 0 SULFAMETHOXAZOLE-TRIMETHOPRIM 20085139702 No Longer Active Checo Conklin MD Active PREDNISONE 20 MG TAB 2 tabs daily for 3 days, 1 t ab daily for 3 days, 1/2 tab daily for 2 days PREDNISONE 14315374046 No Longer Active Checo Conklin MD Active TRIAMCINOLONE ACETONIDE 0.1 % OINT Apply to affected a reas TID for up to 2 weeks TRIAMCINOLONE ACETONIDE 99827633430 No Longer A ctive Checo Conklin MD Active CEFDINIR 300 MG CAPS by mouth twice a day CEFDI JAZZY 69450845918 No Longer Active Dangelo Rangel MD Active BUPROPION HCL (SMOKING DETER) 150 MG [id number] 1 a day for 1 week then 1 twice a day BUPROPION HCL (SMOKING DETER) 09993018573 No Lo nger Active Checo Conklin MD Active SIMVASTATIN 20 MG TABS 1 po qd SIMVASTATIN 5223248501 5 Active Checo Conklin MD Active CHANTIX STARTING MONTH KARTHIK 0.5 MG X 11 & 1 MG X 42 TAB S 0.5mg daily for 3 days, then 0.5mg BID for 4 days, then 1mg BID VARENICLINE TARTRATE 12256527491 No Longer Active Checo Conklin MD Activ e XANAX 0.5 MG TABS 1 po BID PRN anxiety ALPRAZOLAM 18144861627 Active Checo Conklin MD Active CONCERTA 18 MG CR-TABS 1 po q a.m. METHYLPHENID ATE HCL 40901708363 No Longer Active Checo Conklin MD Active AMBIEN 5 MG TAB 1 po qHS PRN Insomnia ZOLPIDEM TARTRATE 26087616264 Active Checo Conklin MD Active TRAZODONE HCL 100 MG TAB 0.5 to 1 po qHS PRN Insomnia TRAZODONE HCL 63944304782 No Longer Active Checo Conklin MD Acti ve FIORICET 325-50-40 MG TAB 1 tablet by mouth four times daily as needed [id number] 57092466730 No Longer Active Checo Conklin MD Active PHENERGAN CREAM* 25mg applied to wrist q6hr PRN Nausea PHENERGAN CREAM* No Longer Active Checo Conklin MD A ctive FLONASE 50 MCG/ACT SUSP 1 spray each nostril am and hs FLUTICASONE PROPIONATE 87378108537 No Longer Active Checo Conklin MD Activ e ANTIPYRINE-BENZOCAINE 5.4-1.4 % SOLN 1-2 drops in affected ear BENZOCAINE-ANTIPYRINE 11709532187 No Longer Active Checo Conklin MD Active CEFDINIR 300 MG CAPS 1 po bid CEFDINIR 94367463 120 No Longer Active Checo Conklin MD Active PREDNISONE 20 MG TAB 2 tabs daily for 3 days, 1 t ab daily for 3 days, 1/2 tab daily for 2 days PREDNISONE 89414524216 No Longer Active Aracelis Conklin MD Active AZITHROMYCIN 250 MG TABS 2 po qd x 1 day, then 1 po qd x 4 days AZITHROMYCIN 74147362788 No Longer Active Checo Conklin MD Active PREDNISONE 20 MG TAB 2 tabs daily for 3 days, 1 t ab daily for 3 days, 1/2 tab daily for 2 days PREDNISONE 68250229847 No Longer Active Checo Conklin MD Active ZITHROMAX Z-KARTHIK 250 MG TABS 2 today, then 1 daily for 4 days 201 09/18/28 AZITHROMYCIN 52309978381 No Longer Active Paul Hamlin MD Active FOCALIN XR 10 MG [id number] 1 po q a.m. D EXMETHYLPHENIDATE HCL 16829996365 No Longer Active Paul Hamlin MD Activ e PERCOCET 10-325 MG TABS 1 tablet every 6 hours as needed for pain OXYCODONE-ACETAMINOPHEN 59921905252 No Longer Active Paul Hamlin MD Active LORTAB 5 5-500 MG TABS 1/2 to 1 tablet by mouth flaquito ry 4 hours as needed for pain HYDROCODONE-ACETAMINOPHEN 33196351303 No Longer Active Checo Conklin MD Active FOCALIN XR 15 MG [id number] 1 po q a.m. D EXMETHYLPHENIDATE HCL 69059416621 No Longer Active Checo Conklin MD Activ e ZOFRAN ODT 4 MG TBDP 1 po q6hr PRN Nausea ONDAN SETRON 74349437372 No Longer Active Checo Conklin MD Active PERCOCET 5-325 MG TABS 1 tablet by mouth every 6 hours as needed OXYCODONE-ACETAMINOPHEN 14555732740 No Longer Active Checo Conklin MD Active PYRIDIUM 200 MG TABS take 1 tab po TID prn urinary pain. 0 PHENAZOPYRIDINE HCL 20523224380 No Longer Active Checo Coknlin MD Active FLUCONAZOLE 150 MG TABS take 1 tab po qday once 0 04/06 FLUCONAZOLE 13028274938 No Longer Active Dangelo Rangel MD Acti ve CIPRO 500 MG TAB 1 tablet by mouth twice daily CIPROFLOXACIN HCL 31710970349 No Longer Active Dangelo Rangel MD Active PYRIDIUM 200 MG TABS take 1 tab po TID prn urinary pain. 0 PYRIDIUM 200 MG TABS 0525240 PHENAZOPYRIDINE HCL Inactive PERCOCET 5-325 MG TABS 1 tablet by mouth every 6 hours as needed PERCOCET 5-325 MG TABS 7353264 OXYCODONE-ACETAMINOPHEN I nactive ZOFRAN ODT 4 MG TBDP 1 po q6hr PRN Nausea ZOFRAN ODT 4 MG TBDP 965761 ONDANSETRON Inactive FOCALIN XR 15 MG [id number] 1 po q a.m. F OCALIN XR 15 MG [id number] DEXMETHYLPHENIDATE HCL Inactive LORTAB 5 5-500 MG TABS 1/2 to 1 tablet by mouth flaquito ry 4 hours as needed for pain LORTAB 5 5-500 MG TABS HYDROCODONE-A CETAMINOPHEN Inactive PERCOCET 10-325 MG TABS 1 tablet every 6 hours as needed for pain PERCOCET 10-325 MG TABS 6465431 OXYCODONE-ACETAMINOPHEN Inactive FOCALIN XR 10 MG [id number] 1 po q a.m. F OCALIN XR 10 MG [id number] DEXMETHYLPHENIDATE HCL Inactive CEFDINIR 300 MG CAPS 1 po bid CEFDINIR 300 MG CAPS 20 0346 CEFDINIR Inactive ANTIPYRINE-BENZOCAINE 5.4-1.4 % SOLN 1-2 drops in affected ear ANTIPYRINE-BENZOCAINE 5.4-1.4 % SOLN BENZOCAINE-ANTIPYRINE I nactive FLONASE 50 MCG/ACT SUSP 1 spray each nostril am and hs FLONASE 50 MCG/ACT SUSP 8648499 FLUTICASONE PROPIONATE Inactive PHENERGAN CREAM* 25mg applied to wrist q6hr PRN Nausea PHENERGAN CREAM* Inactive FIORICET 325-50-40 MG TAB 1 tablet by mouth four times daily as needed FIORICET 325-50-40 MG TAB ACETAMINOPHEN-C AFF-BUTALBITAL Inactive TRAZODONE HCL 100 MG TAB 0.5 to 1 po qHS PRN Insomnia TRAZODONE HCL 100 MG TAB 451755 TRAZODONE HCL Inactive CONCERTA 18 MG CR-TABS [...] s prn cough HYDROCODONE-ACETAMINOPHEN 5-325 MG TABS 669928 HYDROCODONE-ACETAMINOPHEN Inactive PHENAZOPYRIDINE HCL 200 MG TABS take 1 tab po TID for bladder pa in PHENAZOPYRIDINE HCL 200 MG TABS 5583273 PHENAZOPYRIDINE HCL Inactive HYDROCODONE-ACETAMINOPHEN 5-325 MG TABS 1 po q 6hr PRN Pain 2013 HYDROCODONE-ACETAMINOPHEN 5-325 MG TABS 621180 HYDROCODONE-ACETAMINOPHEN Inactive CELEXA 20 MG TABS 1 tablet by mouth daily CELEXA 20 MG TABS 342881 CITALOPRAM HYDROBROMIDE Inactive REGLAN 10 MG TAB 1 po TID PRN Nausea REGLAN 10 MG TAB 199360 METOCLOPRAMIDE HCL Inactive LAMISIL 250 MG TAB 1 po qd LAMISIL 250 MG TAB 747524 TERBINAFINE HCL Inactive DICLOFENAC SODIUM 75 MG TBEC 1 tablet by mouth twice daily P RN Knee pain DICLOFENAC SODIUM 75 MG TBEC 329092 DICLOFENAC S ODIUM Inactive METOCLOPRAMIDE HCL 10 MG ORAL TABS take one PO tid PRN nausea 20 29/12/14 METOCLOPRAMIDE HCL 10 MG ORAL TABS 136630 METOCLOPRAMID E HCL Inactive TERBINAFINE HCL 250 MG ORAL TABS take one table PO one time abran y TERBINAFINE HCL 250 MG ORAL TABS 868923 TERBINAFINE HCL Inactive BUPROPION HCL ER (SR) 100 MG ORAL [id number] take one t ablet by mouth one time daily for one week then take 1 two times daily BUPROPION HCL ER (SR) 100 MG ORAL [id number] BUPROPION HCL Inacti ve TRAVEL SICKNESS 25 MG ORAL CHEW chew and swallow one t ablet every 6 hours as needed TRAVEL SICKNESS 25 MG ORAL CHEW 129070 MECLIZINE HCL Inactive SUMATRIPTAN SUCCINATE 100 MG ORAL TABS Take one PRN for migrane SUMATRIPTAN SUCCINATE 100 MG ORAL TABS 096339 SUMATRIPT AN SUCCINATE Inactive COMPRO 25 MG RECTAL SUPP insert or apply one supposit ory rectally as directed every 12 hours as needed for nausea COMP RO 25 MG RECTAL SUPP 823536 PROCHLORPERAZINE Inactive ONDANSETRON [address] one tablet on tongue and allow to dissolve every 6 hours as needed for vomitting ON DANSETRON 8 MG ORAL TBDP 661602 ONDANSETRON Inactive HYDROCODONE-ACETAMINOPHEN 5-325 MG TABS 0.5 to 1 tab b y mouth every 6 hours as needed HYDROCODONE-ACETAMINOPHEN 5-325 MG TABS 8 98402 HYDROCODONE-ACETAMINOPHEN Inactive BACTRIM DS 800-160 MG TAB 1 tab by mouth twice daily 2 BACTRIM DS 800-160 MG TAB 19820918 TRIMETHOPRIM-SULFAMETHOXAZOLE Inac tive DIFLUCAN 150 MG TAB 1 tablet by mouth if needed, hold until symptoms start DIFLUCAN 150 MG TAB 19760325 FLUCONAZOLE Inactive IBUPROFEN 800 MG TABS 1 tab every 8 hours with food 31/03/21 IBUPROFEN 800 MG TABS 002540 IBUPROFEN Inactive HYDROCODONE-ACETAMINOPHEN 5-325 MG TABS 1 tab by mouth every 6 hours as needed HYDROCODONE-ACETAMINOPHEN 5-325 MG TABS 691900 HYDROCODONE-ACETAMINOPHEN Inactive BACTROBAN 2 % CREAM Apply to affected area BID for up to 10 days BACTROBAN 2 % CREAM 560617 MUPIROCIN CALCIUM Inactive MAGNESIUM CITRATE 1.745 GM/30ML ORAL SOLN 150ml po BID PRN C onstipation MAGNESIUM CITRATE 1.745 GM/30ML ORAL SOLN 888230 0 MAGNESIUM CITRATE Inactive DIFLUCAN 150 MG TAB 1 tablet by mouth qod DIFLUCAN 150 MG TAB 031744 FLUCONAZOLE Inactive BACTRIM DS 800-160 MG TAB 1 tab by mouth twice daily 2 BACTRIM DS 800-160 MG TAB 19820918 TRIMETHOPRIM-SULFAMETHOXAZOLE Inac tive CLARITIN 10 MG TAB 1 tablet by mouth daily as needed for allergi es CLARITIN 10 MG TAB 517991 LORATADINE Inactive FLUTICASONE PROPIONATE 50 MCG/ACT NASAL SUSP 2 sprays/ nostril qd PRN Congestion/Allergies FLUTICASONE PROPION ATE 50 MCG/ACT NASAL SUSP 1694723 FLUTICASONE PROPIONATE Inactive CIPRO 500 MG TAB 1 tablet by mouth twice daily CIPRO 500 MG TAB 239324 CIPROFLOXACIN HCL Inactive FLUCONAZOLE 150 MG TABS take 1 tab po qday once 04/06 FLUCONAZOLE 150 MG TABS 476401 FLUCONAZOLE Inactive ZITHROMAX Z-KARTHIK 250 MG TABS 2 today, then 1 daily for 4 days 201 09/18/28 ZITHROMAX Z-KARTHIK 250 MG TABS 7128692 AZITHROMYCIN Inac tive PREDNISONE 20 MG TAB 2 tabs daily for 3 days, 1 t ab daily for 3 days, 1/2 tab daily for 2 days PREDNISONE 20 MG TAB 439842 PREDNISON E Inactive AZITHROMYCIN 250 MG TABS 2 po qd x 1 day, then 1 po qd x 4 days AZITHROMYCIN 250 MG TABS 1765079 AZITHROMYCIN Inactiv e PREDNISONE 20 MG TAB 2 tabs daily for 3 days, 1 t ab daily for 3 days, 1/2 tab daily for 2 days PREDNISONE 20 MG TAB 538535 PREDNISON E Inactive CEFDINIR 300 MG CAPS by mouth twice a day CEFDINIR 300 MG CAPS 063302 CEFDINIR Inactive TRIAMCINOLONE ACETONIDE 0.1 % OINT Apply to affected a reas TID for up to 2 weeks TRIAMCINOLONE ACETONIDE 0.1 % OINT 266294 6 TRIAMCINOLONE ACETONIDE Inactive PREDNISONE 20 MG TAB 2 tabs daily for 3 days, 1 t ab daily for 3 days, 1/2 tab daily for 2 days PREDNISONE 20 MG TAB 703200 PREDNISON E Inactive BACTRIM DS 800-160 MG TABS 1 po BID x 7 days 0 BACTRIM DS 800-160 MG TABS 453691 SULFAMETHOXAZOLE-TRIMETHOPRIM Inactive CIPRO 500 MG TAB 1 tablet by mouth twice daily CIPRO 500 MG TAB 356849 CIPROFLOXACIN HCL Inactive AZITHROMYCIN 250 MG TABS 2 po qd x 1 day, then 1 po qd x 4 days AZITHROMYCIN 250 MG TABS 9750648 AZITHROMYCIN Inactiv e FLAGYL 500 MG TAB 1 tablet by mouth bid FLAGYL 500 MG TAB 189137 METRONIDAZOLE Inactive AZITHROMYCIN 250 MG TABS 2 po qd x 1 day, then 1 po qd x 4 days AZITHROMYCIN 250 MG TABS 5107757 AZITHROMYCIN Inactiv e AMOXICILLIN 500 MG ORAL CAPS 2 po BID x 10 days 09/12 AMOXICILLIN 500 MG ORAL CAPS 309280 AMOXICILLIN Inactive Immunizations Vaccine Administration Date Value [...] Report: CBC W/DIFF, Comp. Metabolic Panel, Qual [facility] [place] Chemistry sodium, serum 139 mmol/L 382-776 0336/10/21 carbon dioxide, venous blood 33.5 mmol/L 21.0-32 [...] Report: CBC W/DIFF, Comp. Metabolic Panel, Qual [facility] [place] - Hematology leukocyte count, blood 7.9 10^3/MM^3 [...] PANEL - Chemistry cholesterol, serum 192 mg/dL 780-867 8481/02/20 HDL cholesterol, serum 31 mg/dL > OR [...] 11 .0-15.0 platelet count 218 THOUSAND/UL 10*3/mm3 254-024 3259/02/20 mean platelet volume 9.7 fL 7.5-12.5 Lab Report: Chlamydia/GC APTIMA/[id number] - Lab chlamydia DNA probe NOT DETECTED NOT DETECTED Lab Report: Chlamydia/GC APTIMA/26972 - Microbiology Neisseria gonorrhoeae DNA probe NOT [...] 5.0-8.5 Encounters Code Encounter Date Provider Facility CPT-39155 Level 3 Est. Patient 13:05:44 CDT Paul Hamlin MD [facility] CPT-88512 Level 3 Est. Patient 11:29:55 CDT Checo Conklin MD [facility] CPT-86163 Level 4 Est. Patient 11:08:12 FILTER WORKER Checo Conklin MD [facility] CPT-75779 Level 4 Est. Patient 16:06:48 FILTER WORKER Checo Conklin MD [facility] CPT-36306 Level 3 Est. Patient 09:11:49 CDT Efren almendarez [facility] CPT-83727 Level 2 Est. Patient 19:53:27 CDT Tanner hill MD [facility] CPT-43294 Level 3 Est. Patient 09:15:34 CDT Efren almendarez [facility] CPT-91389 Level 3 Est. Patient 11:28:51 FILTER WORKER Efren almendarez [facility] CPT-88659 Level 4 Est. Patient 13:55:46 FILTER WORKER Checo Conklin MD [facility] CPT-96192 Level 4 Est. Patient 17:10:53 CDT Checo Conklin MD [facility] CPT-54223 Level 3 Est. Patient 15:56:22 CDT Checo Conklin MD [facility] CPT-89467 Level 3 Est. Patient 15:29:07 CDT Checo Conklin MD [facility] CPT-56333 Level 3 Est. Patient 14:38:41 CDT Checo Conklin MD [facility] CPT-68583 Level 3 Est. Patient 15:22:03 FILTER WORKER Thomas reynolds DO [facility] CPT-02427 Level 3 Est. Patient 13:34:17 FILTER WORKER Checo Conklin MD [facility] CPT-98800 Level 3 Est. Patient 12:29:32 CDT Dangelo arroyo MD [facility] CPT-32827 Level 3 Est. Patient 16:53:02 CDT Checo Conklin MD [facility] CPT-10221 Level 3 Est. Patient 16:37:13 CDT Checo Conklin MD [facility] CPT-73896 Level 3 Est. Patient 16:16:59 CDT Paul Hamlin MD [facility] CPT-14095 Level 3 Est. Patient 14:20:13 CDT Dangelo arroyo MD [facility] CPT-03624 Level 4 Est. Patient 11:29:33 CDT Checo Conklin MD [facility] CPT-58579 Level 3 Est. Patient 17:08:31 CDT Checo Conklin MD [facility] CPT-41922 Level 3 Est. Patient 16:50:42 FILTER WORKER Chceo Conklin MD [facility] CPT-92106 Level 4 Est. Patient 09:26:08 FILTER WORKER Checo Conklin MD [facility] CPT-60714 Level 3 Est. Patient 11:37:10 CDT Checo Conklin MD [facility] CPT-08147 Level 4 Est. Patient 14:07:38 CDT Checo Conklin MD [facility] CPT-61419 Level 3 Est. Patient 09:54:41 CDT Checo Conklin MD [facility] CPT-45139 Level 3 Est. Patient 11:10:54 CDT Paul Hamlin MD [facility] CPT-49474 Level 3 Est. Patient 14:16:56 FILTER WORKER Checo Conklin MD [facility] CPT-16585 Level 3 Est. Patient 11:04:11 FILTER WORKER Checo Conklin MD [facility] CPT-65650 Level 3 Est. Patient 17:09:26 CDT Dangelo arroyo MD [facility] CPT-53945 Level 3 Est. Patient 16:54:37 CDT Checo Conklin MD [facility] Procedures Code Procedure Name Date Entry Date Standard Desc ription CPT-63498 UA w micro - LAB USE ONLY 17:06:46 CDT 2015 CPT-02356 [facility] Qual - LAB USE ONLY 17:06:46 CDT 05/06 CPT-15080 CMP - LAB USE ONLY 17:06:46 CDT CPT-65079 CBC with Diff - LAB USE ONLY 17:06:45 CDT 2 CPT-03469 Venipuncture Draw Fee 17:06:45 CDT CPT-LR Lesion Removal 19:53:27 CDT CPT-OV Office Visit 11:31:28 CDT CPT-19670 Tubersol 09:39:29 CDT CPT-J2550 Phenergan 25 mg (Promethazine) 13:59:02 FILTER WORKER CPT-J1885 Toradol 60 mg (Ketorolac) 13:59:02 FILTER WORKER 2012
--- OUTSIDE RECORDS SUMMARY | 2019-09-29 02:15 | XMS REPORT | Clinical Summary ---
Author Author Admin, Bethany Gonzales Organization [address] Address Unknown Phone Unavailable Allergies, Adverse Reactions, [...] MD Hypoglycemia, unspecified Insomnia 780.52 Resolved Checo Coknlin MD Insomnia, unspecified Hyperlipidemia 272.4 Active Checo [...] TABS 1.5 po qd PAROX ETINE HCL 32795456461 Active Checo Conklin MD Active FLUTICASONE PROPIONATE 50 MCG/ACT NASAL SUSP 2 sprays/ nostril qd PRN Congestion/Allergies FLUTICASONE PROPIONATE 4851188922 5 No Longer Active Checo Conklin MD Active AMOXICILLIN 500 MG ORAL CAPS 2 po BID x 10 days 09/12 AMOXICILLIN 50954416487 No Longer Active Checo Conklin MD Activ e MIRALAX ORAL POWD 8.5 to 17g po qd PRN Constipation POLYETHYLENE GLYCOL 3350 84230557494 Active Checo Conklin MD Active CLARITIN 10 MG TAB 1 tablet by mouth daily as needed for allergi es LORATADINE 45723949090 No Longer Active Checo Conklin MD Active BACTRIM DS 800-160 MG TAB 1 tab by mouth twice daily 2 TRIMETHOPRIM-SULFAMETHOXAZOLE 64721785106 No Longer Active Tanner Carrillo MD Active DIFLUCAN 150 MG TAB 1 tablet by mouth qod FLUCO NAZOLE 39956575812 No Longer Active Efren Medel APRN Active AZITHROMYCIN 250 MG TABS 2 po qd x 1 day, then 1 po qd x 4 days AZITHROMYCIN 86600689726 No Longer Active Efren Medel APRN Active FLAGYL 500 MG TAB 1 tablet by mouth bid METRONI DAZOLE 97904518347 No Longer Active Checo Conklin MD Active FOCALIN XR 10 MG ORAL [id number] 1 po q a.m. DEX METHYLPHENIDATE HCL 55245400323 Active Checo Conklin MD Active MAGNESIUM CITRATE 1.745 GM/30ML ORAL SOLN 150ml po BID PRN C onstipation MAGNESIUM CITRATE 34694527635 No Longer Active Checo Conklin MD Active BACTROBAN 2 % CREAM Apply to affected area BID for up to 10 days MUPIROCIN CALCIUM 49686005696 No Longer Active Checo Conklin MD Active HYDROCODONE-ACETAMINOPHEN 5-325 MG TABS 1 tab by mouth every 6 hours as needed HYDROCODONE-ACETAMINOPHEN 99124461501 No Longer Activ e Checo Conklin MD Active IBUPROFEN 800 MG TABS 1 tab every 8 hours with food 20 31/03/21 IBUPROFEN 00911335359 No Longer Active Checo Conklin MD Activ e DIFLUCAN 150 MG TAB 1 tablet by mouth if needed, hold until symptoms start FLUCONAZOLE 53408401537 No Longer Active Checo Ortiz MD Active BACTRIM DS 800-160 MG TAB 1 tab by mouth twice daily 2 TRIMETHOPRIM-SULFAMETHOXAZOLE 09175465420 No Longer Active Corry leong LPN Active HYDROCODONE-ACETAMINOPHEN 5-325 MG TABS 0.5 to 1 tab b y mouth every 6 hours as needed HYDROCODONE-ACETAMINOPHEN 10643099832 No Longer Active Checo Conklin MD Active ONDANSETRON [address] one tablet on tongue and allow to dissolve every 6 hours as needed for vomitting ONDANSETRO N 33969091406 No Longer Active Checo Conklin MD Active COMPRO 25 MG RECTAL SUPP insert or apply one supposit ory rectally as directed every 12 hours as needed for nausea PROCHLORPERA ZINE 95280097558 No Longer Active Checo Conklin MD Active SUMATRIPTAN SUCCINATE 100 MG ORAL TABS Take one PRN for migrane SUMATRIPTAN SUCCINATE 01054567840 No Longer Active Checo Conklin MD Active TRAVEL SICKNESS 25 MG ORAL CHEW chew and swallow one t ablet every 6 hours as needed MECLIZINE HCL 44479814724 No Longer Active Joe Conklin MD Active BUPROPION HCL ER (SR) 100 MG ORAL [id number] take one t ablet by mouth one time daily for one week then take 1 two times daily BUPROPION HCL 37856624204 No Longer Active Checo Conklin MD Activ e TERBINAFINE HCL 250 MG ORAL TABS take one table PO one time abran y TERBINAFINE HCL 12038787250 No Longer Active Checo Conklin MD Active METOCLOPRAMIDE HCL 10 MG ORAL TABS take one PO tid PRN nausea 20 29/12/14 METOCLOPRAMIDE HCL 31948143160 No Longer Active Checo Conklin MD Active DICLOFENAC SODIUM 75 MG TBEC 1 tablet by mouth twice daily P RN Knee pain DICLOFENAC SODIUM 38590580538 No Longer Active Checo Conklin MD Active LAMISIL 250 MG TAB 1 po qd TERBINAFINE HCL 548 82740488 No Longer Active Checo Conklin MD Active REGLAN 10 MG TAB 1 po TID PRN Nausea METOCLOPRA MIDE HCL 42821551268 No Longer Active Checo Conklin MD Active CELEXA 20 MG TABS 1 tablet by mouth daily CITALOPRAM HYDROBROMIDE 94075564697 No Longer Active Checo Conklin MD Activ e AZITHROMYCIN 250 MG TABS 2 po qd x 1 day, then 1 po qd x 4 days AZITHROMYCIN 01635419046 No Longer Active Checo Conklin MD Active HYDROCODONE-ACETAMINOPHEN 5-325 MG TABS 1 po q 6hr PRN Pain 2013 HYDROCODONE-ACETAMINOPHEN 81969141218 No Longer Active Lenora Conklin MD Active PHENAZOPYRIDINE HCL 200 MG TABS take 1 tab po TID for bladder pa in PHENAZOPYRIDINE HCL 23104911138 No Longer Active Checo Joshua Active CIPRO 500 MG TAB 1 tablet by mouth twice daily CIPROFLOXACIN HCL 09397037736 No Longer Active Dangelo Rangel MD Active HYDROCODONE-ACETAMINOPHEN 5-325 MG TABS 1/2 to 1 po q 4 hour s prn cough HYDROCODONE-ACETAMINOPHEN 94631575528 No Longer Activ e Dangelo Rangel MD Active BACTRIM DS 800-160 MG TABS 1 po BID x 7 days 0 SULFAMETHOXAZOLE-TRIMETHOPRIM 09418880571 No Longer Active Checo Conklin MD Active PREDNISONE 20 MG TAB 2 tabs daily for 3 days, 1 t ab daily for 3 days, 1/2 tab daily for 2 days PREDNISONE 06944648312 No Longer Active Checo Conklin MD Active TRIAMCINOLONE ACETONIDE 0.1 % OINT Apply to affected a reas TID for up to 2 weeks TRIAMCINOLONE ACETONIDE 34511222596 No Longer A ctive Checo Conklin MD Active CEFDINIR 300 MG CAPS by mouth twice a day CEFDI JAZZY 22924067364 No Longer Active Dangelo Rangel MD Active BUPROPION HCL (SMOKING DETER) 150 MG [id number] 1 a day for 1 week then 1 twice a day BUPROPION HCL (SMOKING DETER) 06113432987 No Lo nger Active Checo Conklin MD Active SIMVASTATIN 20 MG TABS 1 po qd SIMVASTATIN 9184883574 5 Active Checo Conklin MD Active CHANTIX STARTING MONTH KARTHIK 0.5 MG X 11 & 1 MG X 42 TAB S 0.5mg daily for 3 days, then 0.5mg BID for 4 days, then 1mg BID VARENICLINE TARTRATE 91224337907 No Longer Active Checo Conklin MD Activ e XANAX 0.5 MG TABS 1 po BID PRN anxiety ALPRAZOLAM 40817552368 Active Checo Conklin MD Active CONCERTA 18 MG CR-TABS 1 po q a.m. METHYLPHENID ATE HCL 83618354341 No Longer Active Checo Conklin MD Active AMBIEN 5 MG TAB 1 po qHS PRN Insomnia ZOLPIDEM TARTRATE 40807964467 Active Checo Conklin MD Active TRAZODONE HCL 100 MG TAB 0.5 to 1 po qHS PRN Insomnia TRAZODONE HCL 99144742353 No Longer Active Checo Conklin MD Acti ve FIORICET 325-50-40 MG TAB 1 tablet by mouth four times daily as needed [id number] 01199421179 No Longer Active Checo Conklin MD Active PHENERGAN CREAM* 25mg applied to wrist q6hr PRN Nausea PHENERGAN CREAM* No Longer Active Checo Conklin MD A ctive FLONASE 50 MCG/ACT SUSP 1 spray each nostril am and hs FLUTICASONE PROPIONATE 89840784601 No Longer Active Checo Conklin MD Activ e ANTIPYRINE-BENZOCAINE 5.4-1.4 % SOLN 1-2 drops in affected ear BENZOCAINE-ANTIPYRINE 95040148018 No Longer Active Checo Conklin MD Active CEFDINIR 300 MG CAPS 1 po bid CEFDINIR 81801478 120 No Longer Active Checo Conklin MD Active PREDNISONE 20 MG TAB 2 tabs daily for 3 days, 1 t ab daily for 3 days, 1/2 tab daily for 2 days PREDNISONE 85848331006 No Longer Active Aracelis Conklin MD Active AZITHROMYCIN 250 MG TABS 2 po qd x 1 day, then 1 po qd x 4 days AZITHROMYCIN 07167175998 No Longer Active Checo Conklin MD Active PREDNISONE 20 MG TAB 2 tabs daily for 3 days, 1 t ab daily for 3 days, 1/2 tab daily for 2 days PREDNISONE 29554010036 No Longer Active Checo Conklin MD Active ZITHROMAX Z-KARTHIK 250 MG TABS 2 today, then 1 daily for 4 days 201 09/18/28 AZITHROMYCIN 96647372840 No Longer Active Paul Hamlin MD Active FOCALIN XR 10 MG [id number] 1 po q a.m. D EXMETHYLPHENIDATE HCL 07390796238 No Longer Active Paul Hamlin MD Activ e PERCOCET 10-325 MG TABS 1 tablet every 6 hours as needed for pain OXYCODONE-ACETAMINOPHEN 60569904258 No Longer Active Paul Hamlin MD Active LORTAB 5 5-500 MG TABS 1/2 to 1 tablet by mouth flaquito ry 4 hours as needed for pain HYDROCODONE-ACETAMINOPHEN 46126046444 No Longer Active Checo Conklin MD Active FOCALIN XR 15 MG [id number] 1 po q a.m. D EXMETHYLPHENIDATE HCL 44037385418 No Longer Active Checo Conklin MD Activ e ZOFRAN ODT 4 MG TBDP 1 po q6hr PRN Nausea ONDAN SETRON 19097453394 No Longer Active Checo Conklin MD Active PERCOCET 5-325 MG TABS 1 tablet by mouth every 6 hours as needed OXYCODONE-ACETAMINOPHEN 04417549924 No Longer Active Checo Conklin MD Active PYRIDIUM 200 MG TABS take 1 tab po TID prn urinary pain. 0 PHENAZOPYRIDINE HCL 47357083023 No Longer Active Checo Conklin MD Active FLUCONAZOLE 150 MG TABS take 1 tab po qday once 04/06 FLUCONAZOLE 37310750899 No Longer Active Dangelo Rangel MD Acti ve CIPRO 500 MG TAB 1 tablet by mouth twice daily CIPROFLOXACIN HCL 13506760497 No Longer Active Dangelo Rangel MD Active PYRIDIUM 200 MG TABS take 1 tab po TID prn urinary pain. 0 PYRIDIUM 200 MG TABS 2105411 PHENAZOPYRIDINE HCL Inactive PERCOCET 5-325 MG TABS 1 tablet by mouth every 6 hours as needed PERCOCET 5-325 MG TABS 5488410 OXYCODONE-ACETAMINOPHEN I nactive ZOFRAN ODT 4 MG TBDP 1 po q6hr PRN Nausea ZOFRAN ODT 4 MG TBDP 243420 ONDANSETRON Inactive FOCALIN XR 15 MG [id number] 1 po q a.m. F OCALIN XR 15 MG [id number] DEXMETHYLPHENIDATE HCL Inactive LORTAB 5 5-500 MG TABS 1/2 to 1 tablet by mouth flaquito ry 4 hours as needed for pain LORTAB 5 5-500 MG TABS HYDROCODONE-A CETAMINOPHEN Inactive PERCOCET 10-325 MG TABS 1 tablet every 6 hours as needed for pain PERCOCET 10-325 MG TABS 7706923 OXYCODONE-ACETAMINOPHEN Inactive FOCALIN XR 10 MG [id number] 1 po q a.m. F OCALIN XR 10 MG [id number] DEXMETHYLPHENIDATE HCL Inactive CEFDINIR 300 MG CAPS [...] PRN Insomnia TRAZODONE HCL 100 MG TAB 423581 TRAZODONE HCL Inactive CONCERTA 18 MG CR-TABS [...] s prn cough HYDROCODONE-ACETAMINOPHEN 5-325 MG TABS 580905 HYDROCODONE-ACETAMINOPHEN Inactive PHENAZOPYRIDINE HCL 200 MG TABS take 1 tab po TID for bladder pa in PHENAZOPYRIDINE HCL 200 MG TABS 5338118 PHENAZOPYRIDINE HCL Inactive HYDROCODONE-ACETAMINOPHEN 5-325 MG TABS 1 po q 6hr PRN Pain 2013 HYDROCODONE-ACETAMINOPHEN 5-325 MG TABS 196200 HYDROCODONE-ACETAMINOPHEN Inactive CELEXA 20 MG TABS 1 tablet by mouth daily CELEXA 20 MG TABS 802057 CITALOPRAM HYDROBROMIDE Inactive REGLAN 10 MG TAB 1 po TID PRN Nausea REGLAN 10 MG TAB 813058 METOCLOPRAMIDE HCL Inactive LAMISIL 250 MG TAB 1 po qd LAMISIL 250 MG TAB 493040 TERBINAFINE HCL Inactive DICLOFENAC SODIUM 75 MG TBEC 1 tablet by mouth twice daily P RN Knee pain DICLOFENAC SODIUM 75 MG TBEC 056280 DICLOFENAC S ODIUM Inactive METOCLOPRAMIDE HCL 10 MG ORAL TABS take one PO tid PRN nausea 20 29/12/14 METOCLOPRAMIDE HCL 10 MG ORAL TABS 829521 METOCLOPRAMID E HCL Inactive TERBINAFINE HCL 250 MG ORAL TABS take one table PO one time abran y TERBINAFINE HCL 250 MG ORAL TABS 704236 TERBINAFINE HCL Inactive BUPROPION HCL ER (SR) 100 MG ORAL [id number] take one t ablet by mouth one time daily for one week then take 1 two times daily BUPROPION HCL ER (SR) 100 MG ORAL [id number] BUPROPION HCL Inacti ve TRAVEL SICKNESS 25 MG ORAL CHEW chew and swallow one t ablet every 6 hours as needed TRAVEL SICKNESS 25 MG ORAL CHEW 232176 MECLIZINE HCL Inactive SUMATRIPTAN SUCCINATE 100 MG ORAL TABS Take one PRN for migrane SUMATRIPTAN SUCCINATE 100 MG ORAL TABS 442611 SUMATRIPT AN SUCCINATE Inactive COMPRO 25 MG RECTAL SUPP insert or apply one supposit ory rectally as directed every 12 hours as needed for nausea COMP RO 25 MG RECTAL SUPP 508808 PROCHLORPERAZINE Inactive ONDANSETRON [address] one tablet on tongue and allow to dissolve every 6 hours as needed for vomitting ON DANSETRON 8 MG ORAL TBDP 140129 ONDANSETRON Inactive HYDROCODONE-ACETAMINOPHEN 5-325 MG TABS 0.5 to 1 tab b y mouth every 6 hours as needed HYDROCODONE-ACETAMINOPHEN 5-325 MG TABS 8 52419 HYDROCODONE-ACETAMINOPHEN Inactive BACTRIM DS 800-160 MG TAB 1 tab by mouth twice daily 2 BACTRIM DS 800-160 MG TAB 765715 TRIMETHOPRIM-SULFAMETHOXAZOLE Inac tive DIFLUCAN 150 MG TAB 1 tablet by mouth if needed, hold until symptoms start DIFLUCAN 150 MG TAB 19760325 FLUCONAZOLE Inactive IBUPROFEN 800 MG TABS 1 tab every 8 hours with food 31/03/21 IBUPROFEN 800 MG TABS 501864 IBUPROFEN Inactive HYDROCODONE-ACETAMINOPHEN 5-325 MG TABS 1 tab by mouth every 6 hours as needed HYDROCODONE-ACETAMINOPHEN 5-325 MG TABS 107786 HYDROCODONE-ACETAMINOPHEN Inactive BACTROBAN 2 % CREAM Apply to affected area BID for up to 10 days BACTROBAN 2 % CREAM 532446 MUPIROCIN CALCIUM Inactive MAGNESIUM CITRATE 1.745 GM/30ML ORAL SOLN 150ml po BID PRN C onstipation MAGNESIUM CITRATE 1.745 GM/30ML ORAL SOLN 519801 0 MAGNESIUM CITRATE Inactive DIFLUCAN 150 MG TAB 1 tablet by mouth qod DIFLUCAN 150 MG TAB 092710 FLUCONAZOLE Inactive BACTRIM DS 800-160 MG TAB 1 tab by mouth twice daily 2 BACTRIM DS 800-160 MG TAB 776980 TRIMETHOPRIM-SULFAMETHOXAZOLE Inac tive CLARITIN 10 MG TAB 1 tablet by mouth daily as needed for allergi es CLARITIN 10 MG TAB 890828 LORATADINE Inactive FLUTICASONE PROPIONATE 50 MCG/ACT NASAL SUSP 2 sprays/ nostril qd PRN Congestion/Allergies FLUTICASONE PROPION ATE 50 MCG/ACT NASAL SUSP 5669104 FLUTICASONE PROPIONATE Inactive CIPRO 500 MG TAB 1 tablet by mouth twice daily CIPRO 500 MG TAB 305954 CIPROFLOXACIN HCL Inactive FLUCONAZOLE 150 MG TABS take 1 tab po qday once 04/06 FLUCONAZOLE 150 MG TABS 854249 FLUCONAZOLE Inactive ZITHROMAX Z-KARTHIK 250 MG TABS 2 today, then 1 daily for 4 days 201 09/18/28 ZITHROMAX Z-KARTHIK 250 MG TABS 3514954 AZITHROMYCIN Inac tive PREDNISONE 20 MG TAB 2 tabs daily for 3 days, 1 t ab daily for 3 days, 1/2 tab daily for 2 days PREDNISONE 20 MG TAB 475466 PREDNISON E Inactive AZITHROMYCIN 250 MG TABS 2 po qd x 1 day, then 1 po qd x 4 days AZITHROMYCIN 250 MG TABS 2018836 AZITHROMYCIN Inactiv e PREDNISONE 20 MG TAB 2 tabs daily for 3 days, 1 t ab daily for 3 days, 1/2 tab daily for 2 days PREDNISONE 20 MG TAB 568880 PREDNISON E Inactive CEFDINIR 300 MG CAPS by mouth twice a day CEFDINIR 300 MG CAPS 623788 CEFDINIR Inactive TRIAMCINOLONE ACETONIDE 0.1 % OINT Apply to affected a reas TID for up to 2 weeks TRIAMCINOLONE ACETONIDE 0.1 % OINT 459384 6 TRIAMCINOLONE ACETONIDE Inactive PREDNISONE 20 MG TAB 2 tabs daily for 3 days, 1 t ab daily for 3 days, 1/2 tab daily for 2 days PREDNISONE 20 MG TAB 523932 PREDNISON E Inactive BACTRIM DS 800-160 MG TABS 1 po BID x 7 days 0 BACTRIM DS 800-160 MG TABS 325888 SULFAMETHOXAZOLE-TRIMETHOPRIM Inactive CIPRO 500 MG TAB 1 tablet by mouth twice daily CIPRO 500 MG TAB 738774 CIPROFLOXACIN HCL Inactive AZITHROMYCIN 250 MG TABS 2 po qd x 1 day, then 1 po qd x 4 days AZITHROMYCIN 250 MG TABS 7027368 AZITHROMYCIN Inactiv e FLAGYL 500 MG TAB 1 tablet by mouth bid FLAGYL 500 MG TAB 656870 METRONIDAZOLE Inactive AZITHROMYCIN 250 MG TABS 2 po qd x 1 day, then 1 po qd x 4 days AZITHROMYCIN 250 MG TABS 1947759 AZITHROMYCIN Inactiv e AMOXICILLIN 500 MG ORAL CAPS 2 po BID x 10 days 09/12 AMOXICILLIN 500 MG ORAL CAPS 295525 AMOXICILLIN Inactive Immunizations Vaccine Administration Date Value [...] Report: CBC W/DIFF, Comp. Metabolic Panel, Qual [facility] [place] - Chemistry sodium, serum 139 mmol/L 326-241 9955/10/21 carbon dioxide, venous blood 33.5 mmol/L 21.0-32 [...] Report: CBC W/DIFF, Comp. Metabolic Panel, Qual [facility] [place] - Hematology leukocyte count, blood [...] PANEL - Chemistry cholesterol, serum 192 mg/dL 953-479 5515/02/20 HDL cholesterol, serum 31 mg/dL > OR [...] 11 .0-15.0 platelet count 218 THOUSAND/UL 10*3/mm3 422-830 0934/02/20 mean platelet volume 9.7 fL 7.5-12.5 Lab Report: Chlamydia/GC APTIMA/04896 - Lab chlamydia DNA probe NOT DETECTED NOT DETECTED Lab Report: Chlamydia/GC APTIMA/41169 - Microbiology Neisseria gonorrhoeae DNA probe NOT DETECTED NO T DETECTED Lab Report: Comp. Metabolic Panel, Thyro id Stimulating Hormone (L), Eryt ... - Chemistry sodium, serum 137 mmol/L 223-335 6431/05/27 carbon dioxide, venous blood 29.1 mmol/L 21.0-32 [...] 5.0-8.5 Encounters Code Encounter Date Provider Facility CPT-17709 Level 3 Est. Patient 11:29:55 CDT Checo Conklin MD [facility] CPT-38363 Level 4 Est. Patient 11:08:12 ANATOMY TEACHER Checo Conklin MD [facility] CPT-70610 Level 4 Est. Patient 16:06:48 ANATOMY TEACHER Checo Conklin MD [facility] CPT-83808 Level 3 Est. Patient 09:11:49 CDT Efren almendarez [facility] CPT-58847 Level 2 Est. Patient 19:53:27 CDT Tanner hill MD [facility] CPT-44118 Level 3 Est. Patient 09:15:34 CDT Efren almendarez [facility] CPT-92764 Level 3 Est. Patient 11:28:51 ANATOMY TEACHER Efren almendarez [facility] CPT-65359 Level 4 Est. Patient 13:55:46 ANATOMY TEACHER Checo Conklin MD [facility] CPT-17767 Level 4 Est. Patient 17:10:53 CDT Checo Conklin MD [facility] CPT-45268 Level 3 Est. Patient 15:56:22 CDT Checo Conklin MD [facility] CPT-69263 Level 3 Est. Patient 15:29:07 CDT Checo Conklin MD [facility] CPT-62670 Level 3 Est. Patient 14:38:41 CDT Checo Conklin MD [facility] CPT-29322 Level 3 Est. Patient 15:22:03 ANATOMY TEACHER Thomas reynolds DO [facility] CPT-40855 Level 3 Est. Patient 13:34:17 ANATOMY TEACHER Checo Conklin MD [facility] CPT-49362 Level 3 Est. Patient 12:29:32 CDT Dangelo arroyo MD [facility] CPT-77446 Level 3 Est. Patient 16:53:02 CDT Checo Conklin MD [facility] CPT-04496 Level 3 Est. Patient 16:37:13 CDT Checo Conklin MD [facility] CPT-19470 Level 3 Est. Patient 16:16:59 CDT Paul Hamlin MD [facility] CPT-12671 Level 3 Est. Patient 14:20:13 CDT Dangelo arroyo MD [facility] CPT-33346 Level 4 Est. Patient 11:29:33 CDT Checo Conklin MD [facility] CPT-59158 Level 3 Est. Patient 17:08:31 CDT Checo Conklin MD [facility] CPT-55793 Level 3 Est. Patient 16:50:42 ANATOMY TEACHER Checo Conklin MD [facility] CPT-07528 Level 4 Est. Patient 09:26:08 ANATOMY TEACHER Checo Conklin MD [facility] CPT-57829 Level 3 Est. Patient 11:37:10 CDT Checo Conklin MD [facility] CPT-86492 Level 4 Est. Patient 14:07:38 CDT Checo Conklin MD [facility] CPT-81585 Level 3 Est. Patient 09:54:41 CDT Checo Conklin MD [facility] CPT-57400 Level 3 Est. Patient 11:10:54 CDT Paul Hamlin MD [facility] CPT-48295 Level 3 Est. Patient 14:16:56 ANATOMY TEACHER Checo Conklin MD [facility] CPT-46826 Level 3 Est. Patient 11:04:11 ANATOMY TEACHER Checo Conklin MD [facility] CPT-60365 Level 3 Est. Patient 17:09:26 CDT Dangelo arroyo MD [facility] CPT-28889 Level 3 Est. Patient 16:54:37 CDT Checo Conklin MD [facility] Procedures Code Procedure Name Date Entry Date Standard Desc ription CPT-65593 UA w micro - LAB USE ONLY 17:06:46 CDT 2015 CPT-45107 [facility] Qual - LAB USE ONLY 17:06:46 CDT 05/06 CPT-83551 CMP - LAB USE ONLY 17:06:46 CDT CPT-59377 CBC with Diff - LAB USE ONLY 17:06:45 CDT 2 CPT-98015 Venipuncture Draw Fee 17:06:45 CDT CPT-LR Lesion Removal 19:53:27 CDT CPT-OV Office Visit 11:31:28 CDT CPT-77024 Tubersol 09:39:29 CDT CPT-J2550 Phenergan 25 mg (Promethazine) 13:59:02 ANATOMY TEACHER CPT-J1885 Toradol 60 mg (Ketorolac) 13:59:02 ANATOMY TEACHER 2012
--- OUTSIDE RECORDS SUMMARY | 2019-09-29 02:15 | XMS REPORT | Clinical Summary ---
Author Author Admin, Bethany Ayala [facility] Address Unknown Phone Unavailable Allergies, Adverse Reactions, [...] TABS 1.5 po qd PAROX ETINE HCL 29009515389 Active Checo Conklin MD Active FLUTICASONE PROPIONATE 50 MCG/ACT NASAL SUSP 2 sprays/ nostril qd PRN Congestion/Allergies FLUTICASONE PROPIONATE 5062439930 5 No Longer Active Checo Conklin MD Active AMOXICILLIN 500 MG ORAL CAPS 2 po BID x 10 days 09/12 AMOXICILLIN 78861227965 No Longer Active Checo Conklin MD Activ e MIRALAX ORAL POWD 8.5 to 17g po qd PRN Constipation POLYETHYLENE GLYCOL 3350 28542822369 Active Checo Conklin MD Active CLARITIN 10 MG TAB 1 tablet by mouth daily as needed for allergi es LORATADINE 64252539745 No Longer Active Checo Conklin MD Active BACTRIM DS 800-160 MG TAB 1 tab by mouth twice daily 2 TRIMETHOPRIM-SULFAMETHOXAZOLE 07937536067 No Longer Active Tanner Carrillo MD Active DIFLUCAN 150 MG TAB 1 tablet by mouth qod FLUCO NAZOLE 64434619143 No Longer Active Efren Medel APRN Active AZITHROMYCIN 250 MG TABS 2 po qd x 1 day, then 1 po qd x 4 days AZITHROMYCIN 53376502801 No Longer Active Jillina Frajoel [employer] TRA[employer] Active FLAGYL 500 MG TAB 1 tablet by mouth bid METRONI DAZOLE 31479305879 No Longer Active Checo Conklin MD Active FOCALIN XR 10 MG ORAL [id number] 1 po q a.m. DEX METHYLPHENIDATE HCL 99143984197 Active Checo Conklin MD Active MAGNESIUM CITRATE 1.745 GM/30ML ORAL SOLN 150ml po BID PRN C onstipation MAGNESIUM CITRATE 30678947673 No Longer Active Checo Conklin MD Active BACTROBAN 2 % CREAM Apply to affected area BID for up to 10 days MUPIROCIN CALCIUM 56883153804 No Longer Active Checo Conklin MD Active HYDROCODONE-ACETAMINOPHEN 5-325 MG TABS 1 tab by mouth every 6 hours as needed HYDROCODONE-ACETAMINOPHEN 10340789125 No Longer Activ e Checo Conklin MD Active IBUPROFEN 800 MG TABS 1 tab every 8 hours with food 20 31/03/21 IBUPROFEN 00781667464 No Longer Active Checo Conklin MD Activ e DIFLUCAN 150 MG TAB 1 tablet by mouth if needed, hold until symptoms start FLUCONAZOLE 96598663821 No Longer Active Checo Ortiz MD Active BACTRIM DS 800-160 MG TAB 1 tab by mouth twice daily 2 TRIMETHOPRIM-SULFAMETHOXAZOLE 16331070745 No Longer Active Corry leong LPN Active HYDROCODONE-ACETAMINOPHEN 5-325 MG TABS 0.5 to 1 tab b y mouth every 6 hours as needed HYDROCODONE-ACETAMINOPHEN 54792431355 No Longer Active Checo Conklin MD Active ONDANSETRON [address] one tablet on tongue and allow to dissolve every 6 hours as needed for vomitting ONDANSETRO N 14639511793 No Longer Active Checo Conklin MD Active COMPRO 25 MG RECTAL SUPP insert or apply one supposit ory rectally as directed every 12 hours as needed for nausea PROCHLORPERA ZINE 62830112609 No Longer Active Checo Conklin MD Active SUMATRIPTAN SUCCINATE 100 MG ORAL TABS Take one PRN for migrane SUMATRIPTAN SUCCINATE 33376160853 No Longer Active Checo Conklin MD Active TRAVEL SICKNESS 25 MG ORAL CHEW chew and swallow one t ablet every 6 hours as needed MECLIZINE HCL 48113134890 No Longer Active Joe Conklin MD Active BUPROPION HCL ER (SR) 100 MG ORAL [id number] take one t ablet by mouth one time daily for one week then take 1 two times daily BUPROPION HCL 58385336305 No Longer Active Checo Conklin MD Activ e TERBINAFINE HCL 250 MG ORAL TABS take one table PO one time abran y TERBINAFINE HCL 34888250633 No Longer Active Checo Conklin MD Active METOCLOPRAMIDE HCL 10 MG ORAL TABS take one PO tid PRN nausea 20 29/12/14 METOCLOPRAMIDE HCL 99846141263 No Longer Active Checo Conklin MD Active DICLOFENAC SODIUM 75 MG TBEC 1 tablet by mouth twice daily P RN Knee pain DICLOFENAC SODIUM 76177253510 No Longer Active Checo Conklin MD Active LAMISIL 250 MG TAB 1 po qd TERBINAFINE HCL 548 36131001 No Longer Active Checo Conklin MD Active REGLAN 10 MG TAB 1 po TID PRN Nausea METOCLOPRA MIDE HCL 78157444845 No Longer Active Checo Conklin MD Active CELEXA 20 MG TABS 1 tablet by mouth daily CITALOPRAM HYDROBROMIDE 35573942883 No Longer Active Checo Conklin MD Activ e AZITHROMYCIN 250 MG TABS 2 po qd x 1 day, then 1 po qd x 4 days AZITHROMYCIN 91584127657 No Longer Active Checo Conklin MD Active HYDROCODONE-ACETAMINOPHEN 5-325 MG TABS 1 po q 6hr PRN Pain 2013 HYDROCODONE-ACETAMINOPHEN 98951236609 No Longer Active Lenora Conklin MD Active PHENAZOPYRIDINE HCL 200 MG TABS take 1 tab po TID for bladder pa in PHENAZOPYRIDINE HCL 40721228215 No Longer Active Checo Joshua Active CIPRO 500 MG TAB 1 tablet by mouth twice daily CIPROFLOXACIN HCL 73517119228 No Longer Active Dangelo Rangel MD Active HYDROCODONE-ACETAMINOPHEN 5-325 MG TABS 1/2 to 1 po q 4 hour s prn cough HYDROCODONE-ACETAMINOPHEN 36496263496 No Longer Activ e Dangelo Rangel MD Active BACTRIM DS 800-160 MG TABS 1 po BID x 7 days 0 SULFAMETHOXAZOLE-TRIMETHOPRIM 35776392645 No Longer Active Checo Conklin MD Active PREDNISONE 20 MG TAB 2 tabs daily for 3 days, 1 t ab daily for 3 days, 1/2 tab daily for 2 days PREDNISONE 66095235053 No Longer Active Checo Conklin MD Active TRIAMCINOLONE ACETONIDE 0.1 % OINT Apply to affected a reas TID for up to 2 weeks TRIAMCINOLONE ACETONIDE 74085260853 No Longer A ctive Checo Conklin MD Active CEFDINIR 300 MG CAPS by mouth twice a day CEFDI JAZZY 54076134234 No Longer Active Dangelo Rangel MD Active BUPROPION HCL (SMOKING DETER) 150 MG [id number] 1 a day for 1 week then 1 twice a day BUPROPION HCL (SMOKING DETER) 10725882598 No Lo nger Active Checo Conklin MD Active SIMVASTATIN 20 MG TABS 1 po qd SIMVASTATIN 1782189330 5 Active Checo Conklin MD Active CHANTIX STARTING MONTH KARTHIK 0.5 MG X 11 & 1 MG X 42 TAB S 0.5mg daily for 3 days, then 0.5mg BID for 4 days, then 1mg BID VARENICLINE TARTRATE 45225844159 No Longer Active Checo Conklin MD Activ e XANAX 0.5 MG TABS 1 po BID PRN anxiety ALPRAZOLAM 42727749521 Active Checo Conklin MD Active CONCERTA 18 MG CR-TABS 1 po q a.m. METHYLPHENID ATE HCL 08767776523 No Longer Active Checo Conklin MD Active AMBIEN 5 MG TAB 1 po qHS PRN Insomnia ZOLPIDEM TARTRATE 33963768981 Active Checo Conklin MD Active TRAZODONE HCL 100 MG TAB 0.5 to 1 po qHS PRN Insomnia TRAZODONE HCL 11642535395 No Longer Active Checo Conklin MD Acti ve FIORICET 325-50-40 MG TAB 1 tablet by mouth four times daily as needed [id number] 82879937646 No Longer Active Checo Conklin MD Active PHENERGAN CREAM* 25mg applied to wrist q6hr PRN Nausea PHENERGAN CREAM* No Longer Active Checo Conklin MD A ctive FLONASE 50 MCG/ACT SUSP 1 spray each nostril am and hs FLUTICASONE PROPIONATE 36350224740 No Longer Active Checo Conklin MD Activ e ANTIPYRINE-BENZOCAINE 5.4-1.4 % SOLN 1-2 drops in affected ear BENZOCAINE-ANTIPYRINE 59920407263 No Longer Active Checo Conklin MD Active CEFDINIR 300 MG CAPS 1 po bid CEFDINIR 81324616 120 No Longer Active Checo Conklin MD Active PREDNISONE 20 MG TAB 2 tabs daily for 3 days, 1 t ab daily for 3 days, 1/2 tab daily for 2 days PREDNISONE 14483671290 No Longer Active Aracelis Conklin MD Active AZITHROMYCIN 250 MG TABS 2 po qd x 1 day, then 1 po qd x 4 days AZITHROMYCIN 55872513327 No Longer Active Checo Conklin MD Active PREDNISONE 20 MG TAB 2 tabs daily for 3 days, 1 t ab daily for 3 days, 1/2 tab daily for 2 days PREDNISONE 88239008228 No Longer Active Checo Conklin MD Active ZITHROMAX Z-KARTHIK 250 MG TABS 2 today, then 1 daily for 4 days 201 09/18/28 AZITHROMYCIN 56865946088 No Longer Active Paul Hamlin MD Active FOCALIN XR 10 MG [id number] 1 po q a.m. D EXMETHYLPHENIDATE HCL 91814038697 No Longer Active Paul Hamlin MD Activ e PERCOCET 10-325 MG TABS 1 tablet every 6 hours as needed for pain OXYCODONE-ACETAMINOPHEN 95121795272 No Longer Active Paul Hamlin MD Active LORTAB 5 5-500 MG TABS 1/2 to 1 tablet by mouth flaquito ry 4 hours as needed for pain HYDROCODONE-ACETAMINOPHEN 02406280228 No Longer Active Checo Conklin MD Active FOCALIN XR 15 MG [id number] 1 po q a.m. D EXMETHYLPHENIDATE HCL 25656557013 No Longer Active Checo Conklin MD Activ e ZOFRAN ODT 4 MG TBDP 1 po q6hr PRN Nausea ONDAN SETRON 16928094628 No Longer Active Checo Conklin MD Active PERCOCET 5-325 MG TABS 1 tablet by mouth every 6 hours as needed OXYCODONE-ACETAMINOPHEN 42893653009 No Longer Active Checo Conklin MD Active PYRIDIUM 200 MG TABS take 1 tab po TID prn urinary pain. 0 PHENAZOPYRIDINE HCL 94659859688 No Longer Active Checo Conklin MD Active FLUCONAZOLE 150 MG TABS take 1 tab po qday once 04/06 FLUCONAZOLE 64268559977 No Longer Active Dangelo Rangel MD Acti ve CIPRO 500 MG TAB 1 tablet by mouth twice daily CIPROFLOXACIN HCL 93594439533 No Longer Active Dangelo Rangel MD Active PYRIDIUM 200 MG TABS take 1 tab po TID prn urinary pain. 0 PYRIDIUM 200 MG TABS 1053027 PHENAZOPYRIDINE HCL Inactive PERCOCET 5-325 MG TABS 1 tablet by mouth every 6 hours as needed PERCOCET 5-325 MG TABS 2470548 OXYCODONE-ACETAMINOPHEN I nactive ZOFRAN ODT 4 MG TBDP 1 po q6hr PRN Nausea ZOFRAN ODT 4 MG TBDP 163029 ONDANSETRON Inactive FOCALIN XR 15 MG [id number] 1 po q a.m. F OCALIN XR 15 MG [id number] DEXMETHYLPHENIDATE HCL Inactive LORTAB 5 5-500 MG TABS 1/2 to 1 tablet by mouth flaquito ry 4 hours as needed for pain LORTAB 5 5-500 MG TABS HYDROCODONE-A CETAMINOPHEN Inactive PERCOCET 10-325 MG TABS 1 tablet every 6 hours as needed for pain PERCOCET 10-325 MG TABS 9373211 OXYCODONE-ACETAMINOPHEN Inactive FOCALIN XR 10 MG [id number] 1 po q a.m. F OCALIN XR 10 MG [id number] DEXMETHYLPHENIDATE HCL Inactive CEFDINIR 300 MG CAPS 1 po bid CEFDINIR 300 MG CAPS 20 0346 CEFDINIR Inactive ANTIPYRINE-BENZOCAINE 5.4-1.4 % SOLN 1-2 drops in affected ear ANTIPYRINE-BENZOCAINE 5.4-1.4 % SOLN BENZOCAINE-ANTIPYRINE I nactive FLONASE 50 MCG/ACT SUSP 1 spray each nostril am and hs FLONASE 50 MCG/ACT SUSP 6200889 FLUTICASONE PROPIONATE Inactive PHENERGAN CREAM* 25mg applied to wrist q6hr PRN Nausea PHENERGAN CREAM* Inactive FIORICET 325-50-40 MG TAB 1 tablet by mouth four times daily as needed FIORICET 325-50-40 MG TAB ACETAMINOPHEN-C AFF-BUTALBITAL Inactive TRAZODONE HCL 100 MG TAB 0.5 to 1 po qHS PRN Insomnia TRAZODONE HCL 100 MG TAB 969320 TRAZODONE HCL Inactive CONCERTA 18 MG CR-TABS [...] s prn cough HYDROCODONE-ACETAMINOPHEN 5-325 MG TABS 018670 HYDROCODONE-ACETAMINOPHEN Inactive PHENAZOPYRIDINE HCL 200 MG TABS take 1 tab po TID for bladder pa in PHENAZOPYRIDINE HCL 200 MG TABS 2423491 PHENAZOPYRIDINE HCL Inactive HYDROCODONE-ACETAMINOPHEN 5-325 MG TABS 1 po q 6hr PRN Pain 2013 HYDROCODONE-ACETAMINOPHEN 5-325 MG TABS 832656 HYDROCODONE-ACETAMINOPHEN Inactive CELEXA 20 MG TABS 1 tablet by mouth daily CELEXA 20 MG TABS 621281 CITALOPRAM HYDROBROMIDE Inactive REGLAN 10 MG TAB 1 po TID PRN Nausea REGLAN 10 MG TAB 705962 METOCLOPRAMIDE HCL Inactive LAMISIL 250 MG TAB 1 po qd LAMISIL 250 MG TAB 582112 TERBINAFINE HCL Inactive DICLOFENAC SODIUM 75 MG TBEC 1 tablet by mouth twice daily P RN Knee pain DICLOFENAC SODIUM 75 MG TBEC 978088 DICLOFENAC S ODIUM Inactive METOCLOPRAMIDE HCL 10 MG ORAL TABS take one PO tid PRN nausea 20 29/12/14 METOCLOPRAMIDE HCL 10 MG ORAL TABS 709059 METOCLOPRAMID E HCL Inactive TERBINAFINE HCL 250 MG ORAL TABS take one table PO one time abran y TERBINAFINE HCL 250 MG ORAL TABS 704717 TERBINAFINE HCL Inactive BUPROPION HCL ER (SR) 100 MG ORAL [id number] take one t ablet by mouth one time daily for one week then take 1 two times daily BUPROPION HCL ER (SR) 100 MG ORAL [id number] BUPROPION HCL Inacti ve TRAVEL SICKNESS 25 MG ORAL CHEW chew and swallow one t ablet every 6 hours as needed TRAVEL SICKNESS 25 MG ORAL CHEW 142274 MECLIZINE HCL Inactive SUMATRIPTAN SUCCINATE 100 MG ORAL TABS Take one PRN for migrane SUMATRIPTAN SUCCINATE 100 MG ORAL TABS 513673 SUMATRIPT AN SUCCINATE Inactive COMPRO 25 MG RECTAL SUPP insert or apply one supposit ory rectally as directed every 12 hours as needed for nausea COMP RO 25 MG RECTAL SUPP 096904 PROCHLORPERAZINE Inactive ONDANSETRON [address] one tablet on tongue and allow to dissolve every 6 hours as needed for vomitting ON DANSETRON 8 MG ORAL TBDP 604383 ONDANSETRON Inactive HYDROCODONE-ACETAMINOPHEN 5-325 MG TABS 0.5 to 1 tab b y mouth every 6 hours as needed HYDROCODONE-ACETAMINOPHEN 5-325 MG TABS 8 80625 HYDROCODONE-ACETAMINOPHEN Inactive BACTRIM DS 800-160 MG TAB 1 tab by mouth twice daily 2 BACTRIM DS 800-160 MG TAB 528705 TRIMETHOPRIM-SULFAMETHOXAZOLE Inac tive DIFLUCAN 150 MG TAB 1 tablet by mouth if needed, hold until symptoms start DIFLUCAN 150 MG TAB 19760325 FLUCONAZOLE Inactive IBUPROFEN 800 MG TABS 1 tab every 8 hours with food 31/03/21 IBUPROFEN 800 MG TABS 230763 IBUPROFEN Inactive HYDROCODONE-ACETAMINOPHEN 5-325 MG TABS 1 tab by mouth every 6 hours as needed HYDROCODONE-ACETAMINOPHEN 5-325 MG TABS 435421 HYDROCODONE-ACETAMINOPHEN Inactive BACTROBAN 2 % CREAM Apply to affected area BID for up to 10 days BACTROBAN 2 % CREAM 002416 MUPIROCIN CALCIUM Inactive MAGNESIUM CITRATE 1.745 GM/30ML ORAL SOLN 150ml po BID PRN C onstipation MAGNESIUM CITRATE 1.745 GM/30ML ORAL SOLN 474255 0 MAGNESIUM CITRATE Inactive DIFLUCAN 150 MG TAB 1 tablet by mouth qod DIFLUCAN 150 MG TAB 190182 FLUCONAZOLE Inactive BACTRIM DS 800-160 MG TAB 1 tab by mouth twice daily 2 BACTRIM DS 800-160 MG TAB 19820918 TRIMETHOPRIM-SULFAMETHOXAZOLE Inac tive CLARITIN 10 MG TAB 1 tablet by mouth daily as needed for allergi es CLARITIN 10 MG TAB 716757 LORATADINE Inactive FLUTICASONE PROPIONATE 50 MCG/ACT NASAL SUSP 2 sprays/ nostril qd PRN Congestion/Allergies FLUTICASONE PROPION ATE 50 MCG/ACT NASAL SUSP 1648876 FLUTICASONE PROPIONATE Inactive CIPRO 500 MG TAB 1 tablet by mouth twice daily CIPRO 500 MG TAB 582396 CIPROFLOXACIN HCL Inactive FLUCONAZOLE 150 MG TABS take 1 tab po qday once 04/06 FLUCONAZOLE 150 MG TABS 937762 FLUCONAZOLE Inactive ZITHROMAX Z-KARTHIK 250 MG TABS 2 today, then 1 daily for 4 days 201 09/18/28 ZITHROMAX Z-KARTHIK 250 MG TABS 7705751 AZITHROMYCIN Inac tive PREDNISONE 20 MG TAB 2 tabs daily for 3 days, 1 t ab daily for 3 days, 1/2 tab daily for 2 days PREDNISONE 20 MG TAB 331426 PREDNISON E Inactive AZITHROMYCIN 250 MG TABS 2 po qd x 1 day, then 1 po qd x 4 days AZITHROMYCIN 250 MG TABS 7566515 AZITHROMYCIN Inactiv e PREDNISONE 20 MG TAB 2 tabs daily for 3 days, 1 t ab daily for 3 days, 1/2 tab daily for 2 days PREDNISONE 20 MG TAB 650175 PREDNISON E Inactive CEFDINIR 300 MG CAPS by mouth twice a day CEFDINIR 300 MG CAPS 501782 CEFDINIR Inactive TRIAMCINOLONE ACETONIDE 0.1 % OINT Apply to affected a reas TID for up to 2 weeks TRIAMCINOLONE ACETONIDE 0.1 % OINT 825323 6 TRIAMCINOLONE ACETONIDE Inactive PREDNISONE 20 MG TAB 2 tabs daily for 3 days, 1 t ab daily for 3 days, 1/2 tab daily for 2 days PREDNISONE 20 MG TAB 527456 PREDNISON E Inactive BACTRIM DS 800-160 MG TABS 1 po BID x 7 days 0 BACTRIM DS 800-160 MG TABS 236619 SULFAMETHOXAZOLE-TRIMETHOPRIM Inactive CIPRO 500 MG TAB 1 tablet by mouth twice daily CIPRO 500 MG TAB 548803 CIPROFLOXACIN HCL Inactive AZITHROMYCIN 250 MG TABS 2 po qd x 1 day, then 1 po qd x 4 days AZITHROMYCIN 250 MG TABS 3914605 AZITHROMYCIN Inactiv e FLAGYL 500 MG TAB 1 tablet by mouth bid FLAGYL 500 MG TAB 294551 METRONIDAZOLE Inactive AZITHROMYCIN 250 MG TABS 2 po qd x 1 day, then 1 po qd x 4 days AZITHROMYCIN 250 MG TABS 1911439 AZITHROMYCIN Inactiv e AMOXICILLIN 500 MG ORAL CAPS 2 po BID x 10 days 09/12 AMOXICILLIN 500 MG ORAL CAPS 565566 AMOXICILLIN Inactive Immunizations Vaccine Administration Date Value [...] Report: CBC W/DIFF, Comp. Metabolic Panel, Qual [facility] [place] - Chemistry sodium, serum 139 mmol/L 095-701 9874/10/21 carbon dioxide, venous blood 33.5 mmol/L 21.0-32 [...] Report: CBC W/DIFF, Comp. Metabolic Panel, Qual [facility] [place] - Hematology leukocyte count, blood 7.9 10^3/MM^3 [...] PANEL - Chemistry cholesterol, serum 192 mg/dL 658-043 3050/02/20 HDL cholesterol, serum 31 mg/dL > OR [...] 11 .0-15.0 platelet count 218 THOUSAND/UL 10*3/mm3 709-655 3578/02/20 mean platelet volume 9.7 fL 7.5-12.5 Lab Report: Chlamydia/GC APTIMA/78316 - Lab chlamydia DNA probe NOT DETECTED NOT DETECTED Lab Report: Chlamydia/GC [facility]/15873 - Microbiology Neisseria gonorrhoeae DNA probe NOT [...] 5.0-8.5 Encounters Code Encounter Date Provider Facility CPT-46921 Level 3 Est. Patient 13:05:44 CDT Paul Hamlin MD [facility] CPT-86843 Level 3 Est. Patient 11:29:55 CDT Checo Conklin MD [facility] CPT-63130 Level 4 Est. Patient 11:08:12 [place] Checo Conklin MD [facility] CPT-43571 Level 4 Est. Patient 16:06:48 [place] Checo Conklin MD [facility] CPT-95979 Level 3 Est. Patient 09:11:49 CDT Efren almendarez [facility] [place][note 2] CPT-77509 Level 2 Est. Patient 19:53:27 CDT Tanner hill MD [facility] CPT-95524 Level 3 Est. Patient 09:15:34 CDT Efren almendarez [facility] [place][note 2] CPT-75728 Level 3 Est. Patient 11:28:51 [place] Efren almendarez [facility] [place][note 2] CPT-12965 Level 4 Est. Patient 13:55:46 [place] Checo Conklin MD [facility] CPT-04550 Level 4 Est. Patient 17:10:53 CDT Checo Conklin MD [facility] CPT-77121 Level 3 Est. Patient 15:56:22 CDT Checo Conklin MD [facility] CPT-17161 Level 3 Est. Patient 15:29:07 CDT Checo Conklin MD [facility] CPT-94976 Level 3 Est. Patient 14:38:41 CDT Checo Conklin MD [facility] CPT-94752 Level 3 Est. Patient 15:22:03 [place] Thomas reynolds DO [facility] CPT-67970 Level 3 Est. Patient 13:34:17 [place] Checo Conklin MD [facility] CPT-22503 Level 3 Est. Patient 12:29:32 CDT Dangelo arroyo MD [facility] CPT-31083 Level 3 Est. Patient 16:53:02 CDT Checo Conklin MD [facility] CPT-44676 Level 3 Est. Patient 16:37:13 CDT Checo Conklin MD [facility] CPT-17559 Level 3 Est. Patient 16:16:59 CDT Paul Hamlin MD [facility] CPT-58651 Level 3 Est. Patient 14:20:13 CDT Dangelo arroyo MD [facility] CPT-09670 Level 4 Est. Patient 11:29:33 CDT Checo Conklin MD [facility] CPT-62639 Level 3 Est. Patient 17:08:31 CDT Checo Conklin MD [facility] CPT-84017 Level 3 Est. Patient 16:50:42 [place] Checo Conklin MD [facility] CPT-59051 Level 4 Est. Patient 09:26:08 [place] Checo Conklin MD [facility]-90750 Level 3 Est. Patient 11:37:10 CDT Checo Conklin MD [facility] CPT-32400 Level 4 Est. Patient 14:07:38 CDT Checo Conklin MD [facility] CPT-61156 Level 3 Est. Patient 09:54:41 CDT Checo Conklin MD [facility] CPT-78909 Level 3 Est. Patient 11:10:54 CDT Paul Hamlin MD [facility] CPT-81575 Level 3 Est. Patient 14:16:56 [place] Checo Conklin MD [facility] CPT-94910 Level 3 Est. Patient 11:04:11 [place] Checo Conklin MD [facility] CPT-18327 Level 3 Est. Patient 17:09:26 CDT Dangelo arroyo MD [facility] CPT-95591 Level 3 Est. Patient 16:54:37 CDT Checo Conklin MD [facility] Procedures Code Procedure Name Date Entry Date Standard Desc ription CPT-18506 UA w micro - LAB USE ONLY 17:06:46 CDT 2015 CPT-56068 BHCG Qual - LAB USE ONLY 17:06:46 CDT 05/06 CPT-07735 CMP - LAB USE ONLY 17:06:46 CDT CPT-34893 CBC with Diff - LAB USE ONLY 17:06:45 CDT 2 CPT-31902 Venipuncture Draw Fee 17:06:45 CDT CPT-LR Lesion Removal 19:53:27 CDT CPT-OV Office Visit 11:31:28 CDT CPT-38690 Tubersol 09:39:29 CDT CPT-J2550 Phenergan 25 mg (Promethazine) 13:59:02 [place] CPT-J1885 Toradol 60 mg (Ketorolac) 13:59:02 POKER IN 2012
--- OUTSIDE RECORDS SUMMARY | 2019-09-29 02:16 | XMS REPORT | Clinical Summary ---
Author Author Admin, Bethany Gonzales Organization [employer] Address Unknown Phone Unavailable Allergies, Adverse Reactions, [...] of skin Abdominal pain, generalized 789.07 Resolved hCeco Conklin MD Abdominal pain, generalized Urinary frequency [...] TABS 1.5 po qd PAROX ETINE HCL 37256112959 Active Checo Conklin MD Active FLUTICASONE PROPIONATE 50 MCG/ACT NASAL SUSP 2 sprays/ nostril qd PRN Congestion/Allergies FLUTICASONE PROPIONATE 0814222827 5 No Longer Active Checo Conklin MD Active AMOXICILLIN 500 MG ORAL CAPS 2 po BID x 10 days 09/12 AMOXICILLIN 40796315679 No Longer Active Checo Conklin MD Activ e MIRALAX ORAL POWD 8.5 to 17g po qd PRN Constipation POLYETHYLENE GLYCOL 3350 08685445548 Active Checo Conklin MD Active CLARITIN 10 MG TAB 1 tablet by mouth daily as needed for allergi es LORATADINE 24359252124 No Longer Active Checo Conklin MD Active BACTRIM DS 800-160 MG TAB 1 tab by mouth twice daily 2 TRIMETHOPRIM-SULFAMETHOXAZOLE 30682443425 No Longer Active Tanner Carrillo MD Active DIFLUCAN 150 MG TAB 1 tablet by mouth qod FLUCO NAZOLE 73636561419 No Longer Active Efren Medel APRN Active AZITHROMYCIN 250 MG TABS 2 po qd x 1 day, then 1 po qd x 4 days AZITHROMYCIN 31105262605 No Longer Active Efren Medel APRN Active FLAGYL 500 MG TAB 1 tablet by mouth bid METRONI DAZOLE 61656461347 No Longer Active Checo Conklin MD Active FOCALIN XR 10 MG ORAL [id number] 1 po q a.m. DEX METHYLPHENIDATE HCL 18906131923 Active Checo Conklin MD Active MAGNESIUM CITRATE 1.745 GM/30ML ORAL SOLN 150ml po BID PRN C onstipation MAGNESIUM CITRATE 96304628898 No Longer Active Checo Conklin MD Active BACTROBAN 2 % CREAM Apply to affected area BID for up to 10 days MUPIROCIN CALCIUM 64183695623 No Longer Active Checo Conklin MD Active HYDROCODONE-ACETAMINOPHEN 5-325 MG TABS 1 tab by mouth every 6 hours as needed HYDROCODONE-ACETAMINOPHEN 86949113190 No Longer Activ e Checo Conklin MD Active IBUPROFEN 800 MG TABS 1 tab every 8 hours with food 20 31/03/21 IBUPROFEN 76026928149 No Longer Active Checo Conklin MD Activ e DIFLUCAN 150 MG TAB 1 tablet by mouth if needed, hold until symptoms start FLUCONAZOLE 98265656319 No Longer Active Checo Ortiz MD Active BACTRIM DS 800-160 MG TAB 1 tab by mouth twice daily 2 TRIMETHOPRIM-SULFAMETHOXAZOLE 43598178197 No Longer Active Corry leong LPN Active HYDROCODONE-ACETAMINOPHEN 5-325 MG TABS 0.5 to 1 tab b y mouth every 6 hours as needed HYDROCODONE-ACETAMINOPHEN 06421460128 No Longer Active Checo Conklin MD Active ONDANSETRON [address] one tablet on tongue and allow to dissolve every 6 hours as needed for vomitting ONDANSETRO N 04533760004 No Longer Active Checo Conklin MD Active COMPRO 25 MG RECTAL SUPP insert or apply one supposit ory rectally as directed every 12 hours as needed for nausea PROCHLORPERA ZINE 07209814389 No Longer Active Checo Conklin MD Active SUMATRIPTAN SUCCINATE 100 MG ORAL TABS Take one PRN for migrane SUMATRIPTAN SUCCINATE 50753579107 No Longer Active Checo Conklin MD Active TRAVEL SICKNESS 25 MG ORAL CHEW chew and swallow one t ablet every 6 hours as needed MECLIZINE HCL 11583579697 No Longer Active Joe Conklin MD Active BUPROPION HCL ER (SR) 100 MG ORAL [id number] take one t ablet by mouth one time daily for one week then take 1 two times daily BUPROPION HCL 46482844805 No Longer Active Checo Conklin MD Activ e TERBINAFINE HCL 250 MG ORAL TABS take one table PO one time abran y TERBINAFINE HCL 47778670881 No Longer Active Checo Conklin MD Active METOCLOPRAMIDE HCL 10 MG ORAL TABS take one PO tid PRN nausea 20 29/12/14 METOCLOPRAMIDE HCL 01673604822 No Longer Active Checo Conklin MD Active DICLOFENAC SODIUM 75 MG TBEC 1 tablet by mouth twice daily P RN Knee pain DICLOFENAC SODIUM 91778765681 No Longer Active Checo Conklin MD Active LAMISIL 250 MG TAB 1 po qd TERBINAFINE HCL 548 16406982 No Longer Active Checo Conklin MD Active REGLAN 10 MG TAB 1 po TID PRN Nausea METOCLOPRA MIDE HCL 34692926124 No Longer Active Checo Conklin MD Active CELEXA 20 MG TABS 1 tablet by mouth daily CITALOPRAM HYDROBROMIDE 06999406453 No Longer Active Checo Conklin MD Activ e AZITHROMYCIN 250 MG TABS 2 po qd x 1 day, then 1 po qd x 4 days AZITHROMYCIN 92878003691 No Longer Active Checo Conklin MD Active HYDROCODONE-ACETAMINOPHEN 5-325 MG TABS 1 po q 6hr PRN Pain 2013 HYDROCODONE-ACETAMINOPHEN 06899465923 No Longer Active Lenora Conklin MD Active PHENAZOPYRIDINE HCL 200 MG TABS take 1 tab po TID for bladder pa in PHENAZOPYRIDINE HCL 50534666728 No Longer Active Checo Joshua Active CIPRO 500 MG TAB 1 tablet by mouth twice daily CIPROFLOXACIN HCL 28893911177 No Longer Active Dangelo Rangel MD Active HYDROCODONE-ACETAMINOPHEN 5-325 MG TABS 1/2 to 1 po q 4 hour s prn cough HYDROCODONE-ACETAMINOPHEN 69710922703 No Longer Activ e Dangelo Rangel MD Active BACTRIM DS 800-160 MG TABS 1 po BID x 7 days 0 SULFAMETHOXAZOLE-TRIMETHOPRIM 76918176386 No Longer Active Checo Conklin MD Active PREDNISONE 20 MG TAB 2 tabs daily for 3 days, 1 t ab daily for 3 days, 1/2 tab daily for 2 days PREDNISONE 40833016759 No Longer Active Checo Conklin MD Active TRIAMCINOLONE ACETONIDE 0.1 % OINT Apply to affected a reas TID for up to 2 weeks TRIAMCINOLONE ACETONIDE 95583267173 No Longer A ctive Checo Conklin MD Active CEFDINIR 300 MG CAPS by mouth twice a day CEFDI JAZZY 60702422283 No Longer Active Dangelo Rangel MD Active BUPROPION HCL (SMOKING DETER) 150 MG [id number] 1 a day for 1 week then 1 twice a day BUPROPION HCL (SMOKING DETER) 87759869807 No Lo nger Active Checo Conklin MD Active SIMVASTATIN 20 MG TABS 1 po qd SIMVASTATIN 3671546388 5 Active Checo Conklin MD Active CHANTIX STARTING MONTH KARTHIK 0.5 MG X 11 & 1 MG X 42 TAB S 0.5mg daily for 3 days, then 0.5mg BID for 4 days, then 1mg BID VARENICLINE TARTRATE 02631467697 No Longer Active Checo Conklin MD Activ e XANAX 0.5 MG TABS 1 po BID PRN anxiety ALPRAZOLAM 44908051196 Active Checo Conklin MD Active CONCERTA 18 MG CR-TABS 1 po q a.m. METHYLPHENID ATE HCL 42080367803 No Longer Active Checo Conklin MD Active AMBIEN 5 MG TAB 1 po qHS PRN Insomnia ZOLPIDEM TARTRATE 33506177309 Active Checo Conklin MD Active TRAZODONE HCL 100 MG TAB 0.5 to 1 po qHS PRN Insomnia TRAZODONE HCL 19231438735 No Longer Active Checo Conklin MD Acti ve FIORICET 325-50-40 MG TAB 1 tablet by mouth four times daily as needed [id number] 04851983643 No Longer Active Checo Conklin MD Active PHENERGAN CREAM* 25mg applied to wrist q6hr PRN Nausea PHENERGAN CREAM* No Longer Active Checo Conklin MD A ctive FLONASE 50 MCG/ACT SUSP 1 spray each nostril am and hs FLUTICASONE PROPIONATE 73826591067 No Longer Active Checo Conklin MD Activ e ANTIPYRINE-BENZOCAINE 5.4-1.4 % SOLN 1-2 drops in affected ear BENZOCAINE-ANTIPYRINE 34996076644 No Longer Active Checo Conklin MD Active CEFDINIR 300 MG CAPS 1 po bid CEFDINIR 17711638 120 No Longer Active Checo Conklin MD Active PREDNISONE 20 MG TAB 2 tabs daily for 3 days, 1 t ab daily for 3 days, 1/2 tab daily for 2 days PREDNISONE 55641263824 No Longer Active Aracelis Conklin MD Active AZITHROMYCIN 250 MG TABS 2 po qd x 1 day, then 1 po qd x 4 days AZITHROMYCIN 28618989449 No Longer Active Checo Conklin MD Active PREDNISONE 20 MG TAB 2 tabs daily for 3 days, 1 t ab daily for 3 days, 1/2 tab daily for 2 days PREDNISONE 51059388446 No Longer Active Checo Conklin MD Active ZITHROMAX Z-KARTHIK 250 MG TABS 2 today, then 1 daily for 4 days 201 09/18/28 AZITHROMYCIN 32976526391 No Longer Active Paul Hamlin MD Active FOCALIN XR 10 MG [id number] 1 po q a.m. D EXMETHYLPHENIDATE HCL 52313926727 No Longer Active Paul Hamlin MD Activ e PERCOCET 10-325 MG TABS 1 tablet every 6 hours as needed for pain OXYCODONE-ACETAMINOPHEN 63152146325 No Longer Active Paul Hamlin MD Active LORTAB 5 5-500 MG TABS 1/2 to 1 tablet by mouth flaquito ry 4 hours as needed for pain HYDROCODONE-ACETAMINOPHEN 36060196552 No Longer Active Checo Conklin MD Active FOCALIN XR 15 MG [id number] 1 po q a.m. D EXMETHYLPHENIDATE HCL 98347867884 No Longer Active Checo Conklin MD Activ e ZOFRAN ODT 4 MG TBDP 1 po q6hr PRN Nausea ONDAN SETRON 42116089008 No Longer Active Checo Conklin MD Active PERCOCET 5-325 MG TABS 1 tablet by mouth every 6 hours as needed OXYCODONE-ACETAMINOPHEN 27003510176 No Longer Active Checo Conklin MD Active PYRIDIUM 200 MG TABS take 1 tab po TID prn urinary pain. 0 PHENAZOPYRIDINE HCL 98020588450 No Longer Active Checo Conklin MD Active FLUCONAZOLE 150 MG TABS take 1 tab po qday once 04/06 FLUCONAZOLE 64082921378 No Longer Active Dangelo Rangel MD Acti ve CIPRO 500 MG TAB 1 tablet by mouth twice daily CIPROFLOXACIN HCL 12403521636 No Longer Active Dangelo Rangel MD Active PYRIDIUM 200 MG TABS take 1 tab po TID prn urinary pain. 0 PYRIDIUM 200 MG TABS 0033145 PHENAZOPYRIDINE HCL Inactive PERCOCET 5-325 MG TABS 1 tablet by mouth every 6 hours as needed PERCOCET 5-325 MG TABS 3400911 OXYCODONE-ACETAMINOPHEN I nactive ZOFRAN ODT 4 MG TBDP 1 po q6hr PRN Nausea ZOFRAN ODT 4 MG TBDP 917257 ONDANSETRON Inactive FOCALIN XR 15 MG [id number] 1 po q a.m. F OCALIN XR 15 MG [id number] DEXMETHYLPHENIDATE HCL Inactive LORTAB 5 5-500 MG TABS 1/2 to 1 tablet by mouth flaquito ry 4 hours as needed for pain LORTAB 5 5-500 MG TABS HYDROCODONE-A CETAMINOPHEN Inactive PERCOCET 10-325 MG TABS 1 tablet every 6 hours as needed for pain PERCOCET 10-325 MG TABS 1112489 OXYCODONE-ACETAMINOPHEN Inactive FOCALIN XR 10 MG [id number] 1 po q a.m. F OCALIN XR 10 MG [id number] DEXMETHYLPHENIDATE HCL Inactive CEFDINIR 300 MG CAPS [...] PRN Insomnia TRAZODONE HCL 100 MG TAB 614925 TRAZODONE HCL Inactive CONCERTA 18 MG CR-TABS [...] s prn cough HYDROCODONE-ACETAMINOPHEN 5-325 MG TABS 054110 HYDROCODONE-ACETAMINOPHEN Inactive PHENAZOPYRIDINE HCL 200 MG TABS take 1 tab po TID for bladder pa in PHENAZOPYRIDINE HCL 200 MG TABS 7783662 PHENAZOPYRIDINE HCL Inactive HYDROCODONE-ACETAMINOPHEN 5-325 MG TABS 1 po q 6hr PRN Pain 2013 HYDROCODONE-ACETAMINOPHEN 5-325 MG TABS 647188 HYDROCODONE-ACETAMINOPHEN Inactive CELEXA 20 MG TABS 1 tablet by mouth daily CELEXA 20 MG TABS 102063 CITALOPRAM HYDROBROMIDE Inactive REGLAN 10 MG TAB 1 po TID PRN Nausea REGLAN 10 MG TAB 360698 METOCLOPRAMIDE HCL Inactive LAMISIL 250 MG TAB 1 po qd LAMISIL 250 MG TAB 285572 TERBINAFINE HCL Inactive DICLOFENAC SODIUM 75 MG TBEC 1 tablet by mouth twice daily P RN Knee pain DICLOFENAC SODIUM 75 MG TBEC 098742 DICLOFENAC S ODIUM Inactive METOCLOPRAMIDE HCL 10 MG ORAL TABS take one PO tid PRN nausea 20 29/12/14 METOCLOPRAMIDE HCL 10 MG ORAL TABS 703254 METOCLOPRAMID E HCL Inactive TERBINAFINE HCL 250 MG ORAL TABS take one table PO one time abran y TERBINAFINE HCL 250 MG ORAL TABS 728736 TERBINAFINE HCL Inactive BUPROPION HCL ER (SR) 100 MG ORAL [id number] take one t ablet by mouth one time daily for one week then take 1 two times daily BUPROPION HCL ER (SR) 100 MG ORAL [id number] BUPROPION HCL Inacti ve TRAVEL SICKNESS 25 MG ORAL CHEW chew and swallow one t ablet every 6 hours as needed TRAVEL SICKNESS 25 MG ORAL CHEW 172609 MECLIZINE HCL Inactive SUMATRIPTAN SUCCINATE 100 MG ORAL TABS Take one PRN for migrane SUMATRIPTAN SUCCINATE 100 MG ORAL TABS 822616 SUMATRIPT AN SUCCINATE Inactive COMPRO 25 MG RECTAL SUPP insert or apply one supposit ory rectally as directed every 12 hours as needed for nausea COMP RO 25 MG RECTAL SUPP 649596 PROCHLORPERAZINE Inactive ONDANSETRON [address] one tablet on tongue and allow to dissolve every 6 hours as needed for vomitting ON DANSETRON 8 MG ORAL TBDP 340103 ONDANSETRON Inactive HYDROCODONE-ACETAMINOPHEN 5-325 MG TABS 0.5 to 1 tab b y mouth every 6 hours as needed HYDROCODONE-ACETAMINOPHEN 5-325 MG TABS 8 47371 HYDROCODONE-ACETAMINOPHEN Inactive BACTRIM DS 800-160 MG TAB 1 tab by mouth twice daily 2 BACTRIM DS 800-160 MG TAB 720851 TRIMETHOPRIM-SULFAMETHOXAZOLE Inac tive DIFLUCAN 150 MG TAB 1 tablet by mouth if needed, hold until symptoms start DIFLUCAN 150 MG TAB 19760325 FLUCONAZOLE Inactive IBUPROFEN 800 MG TABS 1 tab every 8 hours with food 31/03/21 IBUPROFEN 800 MG TABS 508353 IBUPROFEN Inactive HYDROCODONE-ACETAMINOPHEN 5-325 MG TABS 1 tab by mouth every 6 hours as needed HYDROCODONE-ACETAMINOPHEN 5-325 MG TABS 233907 HYDROCODONE-ACETAMINOPHEN Inactive BACTROBAN 2 % CREAM Apply to affected area BID for up to 10 days BACTROBAN 2 % CREAM 358292 MUPIROCIN CALCIUM Inactive MAGNESIUM CITRATE 1.745 GM/30ML ORAL SOLN 150ml po BID PRN C onstipation MAGNESIUM CITRATE 1.745 GM/30ML ORAL SOLN 409633 0 MAGNESIUM CITRATE Inactive DIFLUCAN 150 MG TAB 1 tablet by mouth qod DIFLUCAN 150 MG TAB 091315 FLUCONAZOLE Inactive BACTRIM DS 800-160 MG TAB 1 tab by mouth twice daily 2 BACTRIM DS 800-160 MG TAB 974859 TRIMETHOPRIM-SULFAMETHOXAZOLE Inac tive CLARITIN 10 MG TAB 1 tablet by mouth daily as needed for allergi es CLARITIN 10 MG TAB 748415 LORATADINE Inactive FLUTICASONE PROPIONATE 50 MCG/ACT NASAL SUSP 2 sprays/ nostril qd PRN Congestion/Allergies FLUTICASONE PROPION ATE 50 MCG/ACT NASAL SUSP 1460198 FLUTICASONE PROPIONATE Inactive CIPRO 500 MG TAB 1 tablet by mouth twice daily CIPRO 500 MG TAB 804593 CIPROFLOXACIN HCL Inactive FLUCONAZOLE 150 MG TABS take 1 tab po qday once 04/06 FLUCONAZOLE 150 MG TABS 532305 FLUCONAZOLE Inactive ZITHROMAX Z-KARTHIK 250 MG TABS 2 today, then 1 daily for 4 days 201 09/18/28 ZITHROMAX Z-KARTHIK 250 MG TABS 5140310 AZITHROMYCIN Inac tive PREDNISONE 20 MG TAB 2 tabs daily for 3 days, 1 t ab daily for 3 days, 1/2 tab daily for 2 days PREDNISONE 20 MG TAB 835751 PREDNISON E Inactive AZITHROMYCIN 250 MG TABS 2 po qd x 1 day, then 1 po qd x 4 days AZITHROMYCIN 250 MG TABS 7428674 AZITHROMYCIN Inactiv e PREDNISONE 20 MG TAB 2 tabs daily for 3 days, 1 t ab daily for 3 days, 1/2 tab daily for 2 days PREDNISONE 20 MG TAB 828016 PREDNISON E Inactive CEFDINIR 300 MG CAPS by mouth twice a day CEFDINIR 300 MG CAPS 826312 CEFDINIR Inactive TRIAMCINOLONE ACETONIDE 0.1 % OINT Apply to affected a reas TID for up to 2 weeks TRIAMCINOLONE ACETONIDE 0.1 % OINT 055940 6 TRIAMCINOLONE ACETONIDE Inactive PREDNISONE 20 MG TAB 2 tabs daily for 3 days, 1 t ab daily for 3 days, 1/2 tab daily for 2 days PREDNISONE 20 MG TAB 374311 PREDNISON E Inactive BACTRIM DS 800-160 MG TABS 1 po BID x 7 days 0 BACTRIM DS 800-160 MG TABS 284712 SULFAMETHOXAZOLE-TRIMETHOPRIM Inactive CIPRO 500 MG TAB 1 tablet by mouth twice daily CIPRO 500 MG TAB 963217 CIPROFLOXACIN HCL Inactive AZITHROMYCIN 250 MG TABS 2 po qd x 1 day, then 1 po qd x 4 days AZITHROMYCIN 250 MG TABS 7057328 AZITHROMYCIN Inactiv e FLAGYL 500 MG TAB 1 tablet by mouth bid FLAGYL 500 MG TAB 110823 METRONIDAZOLE Inactive AZITHROMYCIN 250 MG TABS 2 po qd x 1 day, then 1 po qd x 4 days AZITHROMYCIN 250 MG TABS 9240977 AZITHROMYCIN Inactiv e AMOXICILLIN 500 MG ORAL CAPS 2 po BID x 10 days 09/12 AMOXICILLIN 500 MG ORAL CAPS 938203 AMOXICILLIN Inactive Immunizations Vaccine Administration Date Value [...] Report: CBC W/DIFF, Comp. Metabolic Panel, Qual [facility] - Chemistry sodium, serum 139 mmol/L 829-307 5772/10/21 carbon dioxide, venous blood 33.5 mmol/L 21.0-32 [...] Report: CBC W/DIFF, Comp. Metabolic Panel, Qual [facility] - Hematology leukocyte count, blood 7.9 10^3/MM^3 [...] PANEL - Chemistry cholesterol, serum 192 mg/dL 376-925 9248/02/20 HDL cholesterol, serum 31 mg/dL > OR [...] 11 .0-15.0 platelet count 218 THOUSAND/UL 10*3/mm3 195-901 9263/02/20 mean platelet volume 9.7 fL 7.5-12.5 Lab Report: Chlamydia/GC APTIMA/43856 - Lab chlamydia DNA probe NOT DETECTED NOT DETECTED Lab Report: Chlamydia/GC APTIMA/53252 - Microbiology Neisseria gonorrhoeae DNA probe NOT DETECTED NO T DETECTED Lab Report: Comp. Metabolic Panel, Thyro id Stimulating Hormone (L), Eryt ... - Chemistry sodium, serum 137 mmol/L 339-521 3105/05/27 carbon dioxide, venous blood 29.1 mmol/L 21.0-32 [...] 5.0-8.5 Encounters Code Encounter Date Provider Facility CPT-26512 Level 3 Est. Patient 11:29:55 CDT Checo Conklin MD [facility] CPT-62767 Level 4 Est. 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 Patient 16:06:48 ELECTROSTATIC PAINTER Checo Conklin MD [facility] CPT-20451 Level 3 Est. Patient 09:11:49 CDT Efren almendarez [facility] CPT-71920 Level 2 Est. Patient 19:53:27 CDT Tanner hill MD [facility] CPT-25610 Level 3 Est. Patient 09:15:34 CDT Efren almendarez [facility] CPT-14642 Level 3 Est. Patient 11:28:51 ELECTROSTATIC PAINTER Efren almendarez [facility] CPT-25352 Level 4 Est. Patient 13:55:46 ELECTROSTATIC PAINTER Checo Conklin MD [facility] CPT-34591 Level 4 Est. Patient 17:10:53 CDT Checo Conklin MD [facility] CPT-05703 Level 3 Est. Patient 15:56:22 CDT Checo Conklin MD [facility] CPT-20862 Level 3 Est. Patient 15:29:07 CDT Checo Conklin MD [facility] CPT-62230 Level 3 Est. Patient 14:38:41 CDT Checo Conklin MD [facility] CPT-66987 Level 3 Est. Patient 15:22:03 ELECTROSTATIC PAINTER Thomas reynolds DO [facility] CPT-58944 Level 3 Est. Patient 13:34:17 ELECTROSTATIC PAINTER Checo Conklin MD [facility] CPT-83662 Level 3 Est. Patient 12:29:32 CDT Dangelo arroyo MD [facility] CPT-81812 Level 3 Est. Patient 16:53:02 CDT Checo Conklin MD [facility] CPT-33325 Level 3 Est. Patient 16:37:13 CDT Checo Conklin MD [facility] CPT-48245 Level 3 Est. Patient 16:16:59 CDT Paul Hamlin MD [facility] CPT-97864 Level 3 Est. Patient 14:20:13 CDT Dangelo arroyo MD [facility] CPT-32655 Level 4 Est. Patient 11:29:33 CDT Checo Conklin MD [facility] CPT-52045 Level 3 Est. Patient 17:08:31 CDT Checo Conklin MD [facility] CPT-70379 Level 3 Est. 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 Patient 09:26:08 ELECTROSTATIC PAINTER Checo Conklin MD [facility] CPT-87640 Level 3 Est. Patient 11:37:10 CDT Checo Conklin MD [facility] CPT-03346 Level 4 Est. Patient 14:07:38 CDT Checo Conklin MD [facility] CPT-25623 Level 3 Est. Patient 09:54:41 CDT Checo Conklin MD [facility] CPT-04135 Level 3 Est. Patient 11:10:54 CDT Paul Hamlin MD [facility] CPT-64142 Level 3 Est. Patient 14:16:56 ELECTROSTATIC PAINTER Checo Conklin MD [facility] CPT-31189 Level 3 Est. Patient 11:04:11 ELECTROSTATIC PAINTER Checo Conklin MD [facility] CPT-35681 Level 3 Est. Patient 17:09:26 CDT Dangelo arroyo MD [facility] CPT-08149 Level 3 Est. Patient 16:54:37 CDT Checo Conklin MD [facility] Procedures Code Procedure Name Date Entry Date Standard Desc ription CPT-97291 UA w micro - LAB USE ONLY 17:06:46 CDT 2015 CPT-87147 [facility] Qual - LAB USE ONLY 17:06:46 CDT 05/06 CPT-10780 CMP - LAB USE ONLY 17:06:46 CDT CPT-85368 CBC with Diff - LAB USE ONLY 17:06:45 CDT 2 CPT-16506 Venipuncture Draw Fee 17:06:45 CDT CPT-LR Lesion Removal 19:53:27 CDT CPT-OV Office Visit 11:31:28 CDT CPT-68714 Tubersol 09:39:29 CDT CPT-J2550 Phenergan 25 mg (Promethazine) 13:59:02 ELECTROSTATIC PAINTER CPT-J1885 Toradol 60 mg (Ketorolac) 13:59:02 ELECTROSTATIC PAINTER 2012
--- OUTSIDE RECORDS SUMMARY | 2019-09-29 02:16 | XMS REPORT | Clinical Summary ---
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 [...] tab by mouth twice daily 2 TRIMETHOPRIM-SULFAMETHOXAZOLE 90655819890 No Longer Active Tanner Carrillo MD Active DIFLUCAN 150 MG TAB 1 tablet by mouth qod FLUCO NAZOLE 57839784982 No Longer Active Efren Medel APRN Active CLARITIN 10 MG TAB 1 tablet by mouth daily as needed for allergies LORATADINE 76287968828 Active Jillina Frajoel [employer]ONE PRODUCT FABRICATOR Active AZITHROMYCIN 250 MG TABS 2 po qd x 1 day, then 1 po qd x 4 days AZITHROMYCIN 72854884389 No Longer Active Jillina Lizy RIDDLEN Active FLAGYL 500 MG TAB 1 tablet by mouth bid METRONI DAZOLE 89779890636 No Longer Active Checo Conklin MD Active FOCALIN XR 10 MG ORAL [id number] 1 po q a.m. DEX METHYLPHENIDATE HCL 91785251537 Active Checo Conklin MD Active MAGNESIUM CITRATE 1.745 GM/30ML ORAL SOLN 150ml po BID PRN C onstipation MAGNESIUM CITRATE 73317719575 No Longer Active Checo Conklin MD Active BACTROBAN 2 % CREAM Apply to affected area BID for up to 10 days MUPIROCIN CALCIUM 68130147895 No Longer Active Checo Conklin MD Active HYDROCODONE-ACETAMINOPHEN 5-325 MG TABS 1 tab by mouth every 6 hours as needed HYDROCODONE-ACETAMINOPHEN 69068779782 No Longer Activ e Checo Conklin MD Active IBUPROFEN 800 MG TABS 1 tab every 8 hours with food 20 31/03/21 IBUPROFEN 45317772529 No Longer Active Checo Conklin MD Activ e DIFLUCAN 150 MG TAB 1 tablet by mouth if needed, hold until symptoms start FLUCONAZOLE 58985606645 No Longer Active Checo Ortiz MD Active BACTRIM DS 800-160 MG TAB 1 tab by mouth twice daily 2 TRIMETHOPRIM-SULFAMETHOXAZOLE 73675415951 No Longer Active Corry leong LPN Active MIRALAX PACK 1 po qd PRN Constipation POLYETHYL JOEL GLYCOL 3350 52448242716 Active Checo Conklin MD Active HYDROCODONE-ACETAMINOPHEN 5-325 MG TABS 0.5 to 1 tab b y mouth every 6 hours as needed HYDROCODONE-ACETAMINOPHEN 64055678466 No Longer Active Checo Conklin MD Active ONDANSETRON [address] one tablet on tongue and allow to dissolve every 6 hours as needed for vomitting ONDANSETRO N 66597888836 No Longer Active Checo Conklin MD Active COMPRO 25 MG RECTAL SUPP insert or apply one supposit ory rectally as directed every 12 hours as needed for nausea PROCHLORPERA ZINE 94313871763 No Longer Active Checo Conklin MD Active SUMATRIPTAN SUCCINATE 100 MG ORAL TABS Take one PRN for migrane SUMATRIPTAN SUCCINATE 95074016982 No Longer Active Checo Conklin MD Active TRAVEL SICKNESS 25 MG ORAL CHEW chew and swallow one t ablet every 6 hours as needed MECLIZINE HCL 15633811420 No Longer Active Joe Conklin MD Active BUPROPION HCL ER (SR) 100 MG ORAL [id number] take one t ablet by mouth one time daily for one week then take 1 two times daily BUPROPION HCL 73733021790 No Longer Active Checo Conklin MD Activ e TERBINAFINE HCL 250 MG ORAL TABS take one table PO one time abran y TERBINAFINE HCL 20162283692 No Longer Active Checo Conklin MD Active METOCLOPRAMIDE HCL 10 MG ORAL TABS take one PO tid PRN nausea 20 29/12/14 METOCLOPRAMIDE HCL 35807950740 No Longer Active Checo Conklin MD Active DICLOFENAC SODIUM 75 MG TBEC 1 tablet by mouth twice daily P RN Knee pain DICLOFENAC SODIUM 71140762225 No Longer Active Checo Conklin MD Active LAMISIL 250 MG TAB 1 po qd TERBINAFINE HCL 548 94062822 No Longer Active Checo Conklin MD Active REGLAN 10 MG TAB 1 po TID PRN Nausea METOCLOPRA MIDE HCL 47370368837 No Longer Active Checo Conklin MD Active CELEXA 20 MG TABS 1 tablet by mouth daily CITALOPRAM HYDROBROMIDE 32325546898 No Longer Active Checo Conklin MD Activ e AZITHROMYCIN 250 MG TABS 2 po qd x 1 day, then 1 po qd x 4 days AZITHROMYCIN 51372115548 No Longer Active Checo Conklin MD Active HYDROCODONE-ACETAMINOPHEN 5-325 MG TABS 1 po q 6hr PRN Pain 2013 HYDROCODONE-ACETAMINOPHEN 24921896082 No Longer Active Lenora Conklin MD Active PHENAZOPYRIDINE HCL 200 MG TABS take 1 tab po TID for bladder pa in PHENAZOPYRIDINE HCL 56142628362 No Longer Active Checo Joshua Active CIPRO 500 MG TAB 1 tablet by mouth twice daily CIPROFLOXACIN HCL 75346228290 No Longer Active Dangelo Rangel MD Active HYDROCODONE-ACETAMINOPHEN 5-325 MG TABS 1/2 to 1 po q 4 hour s prn cough HYDROCODONE-ACETAMINOPHEN 30873654891 No Longer Activ e Dangelo Rangel MD Active BACTRIM DS 800-160 MG TABS 1 po BID x 7 days 0 SULFAMETHOXAZOLE-TRIMETHOPRIM 83778550842 No Longer Active Checo Conklin MD Active PREDNISONE 20 MG TAB 2 tabs daily for 3 days, 1 t ab daily for 3 days, 1/2 tab daily for 2 days PREDNISONE 12082197364 No Longer Active Checo Conklin MD Active TRIAMCINOLONE ACETONIDE 0.1 % OINT Apply to affected a reas TID for up to 2 weeks TRIAMCINOLONE ACETONIDE 25713405541 No Longer A ctive Checo Conklin MD Active CEFDINIR 300 MG CAPS by mouth twice a day CEFDI JAZZY 85094177535 No Longer Active Dangelo Rangel MD Active BUPROPION HCL (SMOKING DETER) 150 MG [id number] 1 a day for 1 week then 1 twice a day BUPROPION HCL (SMOKING DETER) 23401220193 No Lo nger Active Checo Conklin MD Active SIMVASTATIN 20 MG TABS 1 po qd SIMVASTATIN 7291316325 5 Active Checo Conklin MD Active CHANTIX STARTING MONTH KARTHIK 0.5 MG X 11 & 1 MG X 42 TAB S 0.5mg daily for 3 days, then 0.5mg BID for 4 days, then 1mg BID VARENICLINE TARTRATE 78302252464 No Longer Active Checo Conklin MD Activ e XANAX 0.5 MG TABS 1 po BID PRN anxiety ALPRAZOLAM 86364424083 Active Checo Conklin MD Active CONCERTA 18 MG CR-TABS 1 po q a.m. METHYLPHENID ATE HCL 98070340643 No Longer Active Checo Conklin MD Active AMBIEN 5 MG TAB 1 po qHS PRN Insomnia ZOLPIDEM TARTRATE 05615580382 Active Checo Conklin MD Active TRAZODONE HCL 100 MG TAB 0.5 to 1 po qHS PRN Insomnia TRAZODONE HCL 73209947037 No Longer Active Checo Conklin MD Acti ve FIORICET 325-50-40 MG TAB 1 tablet by mouth four times daily as needed [id number] 16867252513 No Longer Active Checo Conklin MD Active PHENERGAN CREAM* 25mg applied to wrist q6hr PRN Nausea PHENERGAN CREAM* No Longer Active Checo Conklin MD A ctive FLONASE 50 MCG/ACT SUSP 1 spray each nostril am and hs FLUTICASONE PROPIONATE 48764977250 No Longer Active Checo Conklin MD Activ e ANTIPYRINE-BENZOCAINE 5.4-1.4 % SOLN 1-2 drops in affected ear BENZOCAINE-ANTIPYRINE 21083753412 No Longer Active Checo Conklin MD Active CEFDINIR 300 MG CAPS 1 po bid CEFDINIR 26760077 120 No Longer Active Checo Conklin MD Active PREDNISONE 20 MG TAB 2 tabs daily for 3 days, 1 t ab daily for 3 days, 1/2 tab daily for 2 days PREDNISONE 78307008093 No Longer Active Aracelis Conklin MD Active AZITHROMYCIN 250 MG TABS 2 po qd x 1 day, then 1 po qd x 4 days AZITHROMYCIN 32675483430 No Longer Active Checo Conklin MD Active PREDNISONE 20 MG TAB 2 tabs daily for 3 days, 1 t ab daily for 3 days, 1/2 tab daily for 2 days PREDNISONE 25007646601 No Longer Active Checo Conklin MD Active ZITHROMAX Z-KARTHIK 250 MG TABS 2 today, then 1 daily for 4 days 201 09/18/28 AZITHROMYCIN 30151137434 No Longer Active Paul Hamlin MD Active FOCALIN XR 10 MG [id number] 1 po q a.m. D EXMETHYLPHENIDATE HCL 97240407903 No Longer Active Paul Hamlin MD Activ e PERCOCET 10-325 MG TABS 1 tablet every 6 hours as needed for pain OXYCODONE-ACETAMINOPHEN 08247948095 No Longer Active Paul Hamlin MD Active LORTAB 5 5-500 MG TABS 1/2 to 1 tablet by mouth flaquito ry 4 hours as needed for pain HYDROCODONE-ACETAMINOPHEN 30826435900 No Longer Active Checo Conklin MD Active FOCALIN XR 15 MG [id number] 1 po q a.m. D EXMETHYLPHENIDATE HCL 05664492668 No Longer Active Checo Conklin MD Activ e ZOFRAN ODT 4 MG TBDP 1 po q6hr PRN Nausea ONDAN SETRON 59274872556 No Longer Active Checo Conklin MD Active PERCOCET 5-325 MG TABS 1 tablet by mouth every 6 hours as needed OXYCODONE-ACETAMINOPHEN 99485991352 No Longer Active Checo Conklin MD Active PYRIDIUM 200 MG TABS take 1 tab po TID prn urinary pain. 0 PHENAZOPYRIDINE HCL 90818246353 No Longer Active Checo Conklin MD Active FLUCONAZOLE 150 MG TABS take 1 tab po qday once 0 04/06 FLUCONAZOLE 96771956236 No Longer Active Dangelo Rangel MD Acti ve CIPRO 500 MG TAB 1 tablet by mouth twice daily CIPROFLOXACIN HCL 33560847215 No Longer Active Dangelo Rangel MD Active PYRIDIUM 200 MG TABS take 1 tab po TID prn urinary pain. 0 PYRIDIUM 200 MG TABS 4628961 PHENAZOPYRIDINE HCL Inactive PERCOCET 5-325 MG TABS 1 tablet by mouth every 6 hours as needed PERCOCET 5-325 MG TABS 4110025 OXYCODONE-ACETAMINOPHEN I nactive ZOFRAN ODT 4 MG TBDP 1 po q6hr PRN Nausea ZOFRAN ODT 4 MG TBDP 757372 ONDANSETRON Inactive FOCALIN XR 15 MG [id number] 1 po q a.m. F OCALIN XR 15 MG [id number] DEXMETHYLPHENIDATE HCL Inactive LORTAB 5 5-500 MG TABS 1/2 to 1 tablet by mouth flaquito ry 4 hours as needed for pain LORTAB 5 5-500 MG TABS HYDROCODONE-A CETAMINOPHEN Inactive PERCOCET 10-325 MG TABS 1 tablet every 6 hours as needed for pain PERCOCET 10-325 MG TABS 4467999 OXYCODONE-ACETAMINOPHEN Inactive FOCALIN XR 10 MG [id number] 1 po q a.m. F OCALIN XR 10 MG [id number] DEXMETHYLPHENIDATE HCL Inactive CEFDINIR 300 MG CAPS 1 po bid CEFDINIR 300 MG CAPS 20 0346 CEFDINIR Inactive ANTIPYRINE-BENZOCAINE 5.4-1.4 % SOLN 1-2 drops in affected ear ANTIPYRINE-BENZOCAINE 5.4-1.4 % SOLN 329721 BENZOCAINE-ANTIPYRINE I nactive FLONASE 50 MCG/ACT SUSP [...] PRN Insomnia TRAZODONE HCL 100 MG TAB 910505 TRAZODONE HCL Inactive CONCERTA 18 MG CR-TABS [...] s prn cough HYDROCODONE-ACETAMINOPHEN 5-325 MG TABS 307734 HYDROCODONE-ACETAMINOPHEN Inactive PHENAZOPYRIDINE HCL 200 MG TABS take 1 tab po TID for bladder pa in PHENAZOPYRIDINE HCL 200 MG TABS 9317567 PHENAZOPYRIDINE HCL Inactive HYDROCODONE-ACETAMINOPHEN 5-325 MG TABS 1 po q 6hr PRN Pain 2013 HYDROCODONE-ACETAMINOPHEN 5-325 MG TABS 450639 HYDROCODONE-ACETAMINOPHEN Inactive CELEXA 20 MG TABS 1 tablet by mouth daily CELEXA 20 MG TABS 090982 CITALOPRAM HYDROBROMIDE Inactive REGLAN 10 MG TAB 1 po TID PRN Nausea REGLAN 10 MG TAB 610953 METOCLOPRAMIDE HCL Inactive LAMISIL 250 MG TAB 1 po qd LAMISIL 250 MG TAB 917367 TERBINAFINE HCL Inactive DICLOFENAC SODIUM 75 MG TBEC 1 tablet by mouth twice daily P RN Knee pain DICLOFENAC SODIUM 75 MG TBEC 176513 DICLOFENAC S ODIUM Inactive METOCLOPRAMIDE HCL 10 MG ORAL TABS take one PO tid PRN nausea 20 29/12/14 METOCLOPRAMIDE HCL 10 MG ORAL TABS 544323 METOCLOPRAMID E HCL Inactive TERBINAFINE HCL 250 MG ORAL TABS take one table PO one time abran y TERBINAFINE HCL 250 MG ORAL TABS 321334 TERBINAFINE HCL Inactive BUPROPION HCL ER (SR) 100 MG ORAL [id number] take one t ablet by mouth one time daily for one week then take 1 two times daily BUPROPION HCL ER (SR) 100 MG ORAL [id number] BUPROPION HCL Inacti ve TRAVEL SICKNESS 25 MG ORAL CHEW chew and swallow one t ablet every 6 hours as needed TRAVEL SICKNESS 25 MG ORAL CHEW 272406 MECLIZINE HCL Inactive SUMATRIPTAN SUCCINATE 100 MG ORAL TABS Take one PRN for migrane SUMATRIPTAN SUCCINATE 100 MG ORAL TABS 372042 SUMATRIPT AN SUCCINATE Inactive COMPRO 25 MG RECTAL SUPP insert or apply one supposit ory rectally as directed every 12 hours as needed for nausea COMP RO 25 MG RECTAL SUPP 983503 PROCHLORPERAZINE Inactive ONDANSETRON [address] one tablet on tongue and allow to dissolve every 6 hours as needed for vomitting ON DANSETRON 8 MG ORAL TBDP 293448 ONDANSETRON Inactive HYDROCODONE-ACETAMINOPHEN 5-325 MG TABS 0.5 to 1 tab b y mouth every 6 hours as needed HYDROCODONE-ACETAMINOPHEN 5-325 MG TABS 8 64031 HYDROCODONE-ACETAMINOPHEN Inactive BACTRIM DS 800-160 MG TAB 1 tab by mouth twice daily 2 BACTRIM DS 800-160 MG TAB 625160 TRIMETHOPRIM-SULFAMETHOXAZOLE Inac tive DIFLUCAN 150 MG TAB 1 tablet by mouth if needed, hold until symptoms start DIFLUCAN 150 MG TAB 169241 FLUCONAZOLE Inactive IBUPROFEN 800 MG TABS 1 tab every 8 hours with food 31/03/21 IBUPROFEN 800 MG TABS 975183 IBUPROFEN Inactive HYDROCODONE-ACETAMINOPHEN 5-325 MG TABS 1 tab by mouth every 6 hours as needed HYDROCODONE-ACETAMINOPHEN 5-325 MG TABS 390915 HYDROCODONE-ACETAMINOPHEN Inactive BACTROBAN 2 % CREAM Apply to affected area BID for up to 10 days BACTROBAN 2 % CREAM 568140 MUPIROCIN CALCIUM Inactive MAGNESIUM CITRATE 1.745 GM/30ML ORAL SOLN 150ml po BID PRN C onstipation MAGNESIUM CITRATE 1.745 GM/30ML ORAL SOLN 758146 0 MAGNESIUM CITRATE Inactive DIFLUCAN 150 MG TAB 1 tablet by mouth qod DIFLUCAN 150 MG TAB 531870 FLUCONAZOLE Inactive BACTRIM DS 800-160 MG TAB 1 tab by mouth twice daily 2 BACTRIM DS 800-160 MG TAB 962643 TRIMETHOPRIM-SULFAMETHOXAZOLE Inac tive CIPRO 500 MG TAB 1 tablet by mouth twice daily CIPRO 500 MG TAB 103160 CIPROFLOXACIN HCL Inactive FLUCONAZOLE 150 MG TABS take 1 tab po qday once 04/06 FLUCONAZOLE 150 MG TABS 787772 FLUCONAZOLE Inactive ZITHROMAX Z-KARTHIK 250 MG TABS 2 today, then 1 daily for 4 days 201 09/18/28 ZITHROMAX Z-KARTHIK 250 MG TABS 5271005 AZITHROMYCIN Inac tive PREDNISONE 20 MG TAB 2 tabs daily for 3 days, 1 t ab daily for 3 days, 1/2 tab daily for 2 days PREDNISONE 20 MG TAB 889198 PREDNISON E Inactive AZITHROMYCIN 250 MG TABS 2 po qd x 1 day, then 1 po qd x 4 days AZITHROMYCIN 250 MG TABS 8524092 AZITHROMYCIN Inactiv e PREDNISONE 20 MG TAB 2 tabs daily for 3 days, 1 t ab daily for 3 days, 1/2 tab daily for 2 days PREDNISONE 20 MG TAB 336260 PREDNISON E Inactive CEFDINIR 300 MG CAPS by mouth twice a day CEFDINIR 300 MG CAPS 864257 CEFDINIR Inactive TRIAMCINOLONE ACETONIDE 0.1 % OINT Apply to affected a reas TID for up to 2 weeks TRIAMCINOLONE ACETONIDE 0.1 % OINT 558249 6 TRIAMCINOLONE ACETONIDE Inactive PREDNISONE 20 MG TAB 2 tabs daily for 3 days, 1 t ab daily for 3 days, 1/2 tab daily for 2 days PREDNISONE 20 MG TAB 203363 PREDNISON E Inactive BACTRIM DS 800-160 MG TABS 1 po BID x 7 days 0 BACTRIM DS 800-160 MG TABS 037713 SULFAMETHOXAZOLE-TRIMETHOPRIM Inactive CIPRO 500 MG TAB 1 tablet by mouth twice daily CIPRO 500 MG TAB 383260 CIPROFLOXACIN HCL Inactive AZITHROMYCIN 250 MG TABS 2 po qd x 1 day, then 1 po qd x 4 days AZITHROMYCIN 250 MG TABS 2560857 AZITHROMYCIN Inactiv e FLAGYL 500 MG TAB 1 tablet by mouth bid FLAGYL 500 MG TAB 584162 METRONIDAZOLE Inactive AZITHROMYCIN 250 MG TABS 2 po qd x 1 day, then 1 po qd x 4 days AZITHROMYCIN 250 MG TABS 8325625 AZITHROMYCIN Inactiv e Immunizations Vaccine Administration Date [...] ... - Chemistry sodium, serum 141 mmol/L 485-898 5009/01/26 carbon dioxide, venous blood 30.0 mmol/L 21.0-32 .0 potassium, serum 4.0 mmol/L 3.5-5.2 chloride, serum 105 mmol/L 98-107 blood glucose 85 mg/dL 65-110 urea nitrogen, blood 9 mg/dL 7-18 creatinine, serum 0.66 mg/dL 0.55-1.30 alanine aminotransferase (SGPT), serum 31 U/L 12-78 aspartate aminotransferase (SGOT), serum 21 U/L 15-37 calcium, serum 8.2 mg/dL 8.5-10.1 bilirubin, serum, total 1.10 mg/dL 0.00-1.00 cholesterol, serum 178 mg/dL 732-909 8158/01/26 triglyceride, serum, fasting 149 mg/dL 30-200 HDL [...] ... - Chemistry sodium, serum 137 mmol/L 369-520 6712/05/27 carbon dioxide, venous blood 29.1 mmol/L 21.0-32 [...] 5.0-8.5 Encounters Code Encounter Date Provider Facility CPT-94941 Level 2 Est. Patient 19:53:27 CDT Tanner hill MD [facility] CPT-19007 Level 3 Est. Patient 09:15:34 CDT Efren almendarez [facility] CPT-06014 Level 3 Est. 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 Patient 13:55:46 MUD MIXER OPERATOR Checo Conklin MD [facility] CPT-95361 Level 4 Est. Patient 17:10:53 CDT Checo Conklin MD [facility] CPT-22645 Level 3 Est. Patient 15:56:22 CDT Checo Conklin MD [facility] CPT-90156 Level 3 Est. Patient 15:29:07 CDT Checo Conklin MD [facility] CPT-31250 Level 3 Est. Patient 14:38:41 CDT Checo Conklin MD [facility] CPT-70223 Level 3 Est. Patient 15:22:03 MUD MIXER OPERATOR Thomas reynolds DO [facility] CPT-98832 Level 3 Est. Patient 13:34:17 MUD MIXER OPERATOR Checo Conklin MD [facility] CPT-18754 Level 3 Est. Patient 12:29:32 CDT Dangelo arroyo MD [facility] CPT-97921 Level 3 Est. Patient 16:53:02 CDT Checo Conklin MD [facility] CPT-59868 Level 3 Est. Patient 16:37:13 CDT Checo Conklin MD [facility] CPT-66400 Level 3 Est. Patient 16:16:59 CDT Paul Hamlin MD [facility] CPT-71774 Level 3 Est. Patient 14:20:13 CDT Dangelo arroyo MD [facility] CPT-01781 Level 4 Est. Patient 11:29:33 CDT Checo Conklin MD [facility]-18241 Level 3 Est. Patient 17:08:31 CDT Checo Conklin MD [facility] CPT-76220 Level 3 Est. 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 Patient 11:37:10 CDT Checo Conklin MD [facility] CPT-55912 Level 4 Est. Patient 14:07:38 CDT Checo Conklin MD [facility] CPT-10217 Level 3 Est. Patient 09:54:41 CDT Checo Conklin MD [facility] CPT-50740 Level 3 Est. Patient 11:10:54 CDT Paul Hamlin MD [facility] CPT-85212 Level 3 Est. 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 Patient 17:09:26 CDT aDngelo arroyo MD [facility] CPT-77552 Level 3 Est. Patient 16:54:37 CDT Checo Conklin MD [facility] Procedures Code Procedure Name Date Entry Date Standard Desc ription CPT-LR Lesion Removal 19:53:27 CDT CPT-OV Office Visit 11:31:28 CDT CPT-56209 Tubersol 09:39:29 CDT CPT-J2550 Phenergan 25 mg (Promethazine) 13:59:02 MUD MIXER OPERATOR CPT-J1885 Toradol 60 mg (Ketorolac) 13:59:02 MUD MIXER OPERATOR 2012
--- OUTSIDE RECORDS SUMMARY | 2019-09-29 02:16 | XMS REPORT | Clinical Summary ---
Author Author Admin, Bethany Ayala 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 Tanner Carrillo MD Neoplasm of uncertain behavior of skin Abdominal pain, generalized 789.07 Active Jillina Frazell [employer] WORK[employer] Abdominal pain, generalized Urinary frequency 788.41 Active Jillina Frazell [employer] WORK[employer] Urinary frequency BREAST CANCER ICD-V16.3 Inactive Checo [...] tab by mouth twice daily 2 TRIMETHOPRIM-SULFAMETHOXAZOLE 97344182219 No Longer Active Tanner Carrillo MD Active DIFLUCAN 150 MG TAB 1 tablet by mouth qod FLUCO NAZOLE 20558893695 No Longer Active Efren Medel APRN Active CLARITIN 10 MG TAB 1 tablet by mouth daily as needed for allergies LORATADINE 39671076892 Active Americollmanuela Medel [employer]ER WORKER Active AZITHROMYCIN 250 MG TABS 2 po qd x 1 day, then 1 po qd x 4 days AZITHROMYCIN 59805245921 No Longer Active Jillmanuela Medel APRN Active FLAGYL 500 MG TAB 1 tablet by mouth bid METRONI DAZOLE 97700108008 No Longer Active Checo Conlkin MD Active FOCALIN XR 10 MG ORAL [id number] 1 po q a.m. DEX METHYLPHENIDATE HCL 77380270659 Active Checo Conklin MD Active MAGNESIUM CITRATE 1.745 GM/30ML ORAL SOLN 150ml po BID PRN C onstipation MAGNESIUM CITRATE 60416322323 No Longer Active Checo Conklin MD Active BACTROBAN 2 % CREAM Apply to affected area BID for up to 10 days MUPIROCIN CALCIUM 78845490331 No Longer Active Checo Conklin MD Active HYDROCODONE-ACETAMINOPHEN 5-325 MG TABS 1 tab by mouth every 6 hours as needed HYDROCODONE-ACETAMINOPHEN 80546383268 No Longer Activ e Checo Conklin MD Active IBUPROFEN 800 MG TABS 1 tab every 8 hours with food 20 31/03/21 IBUPROFEN 63650111040 No Longer Active Checo Conklin MD Activ e DIFLUCAN 150 MG TAB 1 tablet by mouth if needed, hold until symptoms start FLUCONAZOLE 06978642220 No Longer Active Checo Ortiz MD Active BACTRIM DS 800-160 MG TAB 1 tab by mouth twice daily 2 TRIMETHOPRIM-SULFAMETHOXAZOLE 31090448499 No Longer Active Corry leong LPN Active MIRALAX PACK 1 po qd PRN Constipation POLYETHYL JOEL GLYCOL 3350 89268919048 Active Checo Conklin MD Active HYDROCODONE-ACETAMINOPHEN 5-325 MG TABS 0.5 to 1 tab b y mouth every 6 hours as needed HYDROCODONE-ACETAMINOPHEN 28548621790 No Longer Active Checo Conklin MD Active ONDANSETRON [address] one tablet on tongue and allow to dissolve every 6 hours as needed for vomitting ONDANSETRO N 91212897643 No Longer Active Checo Conklin MD Active COMPRO 25 MG RECTAL SUPP insert or apply one supposit ory rectally as directed every 12 hours as needed for nausea PROCHLORPERA ZINE 70089033881 No Longer Active Checo Conklin MD Active SUMATRIPTAN SUCCINATE 100 MG ORAL TABS Take one PRN for migrane SUMATRIPTAN SUCCINATE 36800707153 No Longer Active Checo Conklin MD Active TRAVEL SICKNESS 25 MG ORAL CHEW chew and swallow one t ablet every 6 hours as needed MECLIZINE HCL 27580844212 No Longer Active Joe Conklin MD Active BUPROPION HCL ER (SR) 100 MG ORAL [id number] take one t ablet by mouth one time daily for one week then take 1 two times daily BUPROPION HCL 52475873437 No Longer Active Checo Conklin MD Activ e TERBINAFINE HCL 250 MG ORAL TABS take one table PO one time abran y TERBINAFINE HCL 16943431117 No Longer Active Checo Conklin MD Active METOCLOPRAMIDE HCL 10 MG ORAL TABS take one PO tid PRN nausea 20 29/12/14 METOCLOPRAMIDE HCL 64378318686 No Longer Active Checo Conklin MD Active DICLOFENAC SODIUM 75 MG TBEC 1 tablet by mouth twice daily P RN Knee pain DICLOFENAC SODIUM 26058653953 No Longer Active Checo Conklin MD Active LAMISIL 250 MG TAB 1 po qd TERBINAFINE HCL 548 09861979 No Longer Active Checo Conklin MD Active REGLAN 10 MG TAB 1 po TID PRN Nausea METOCLOPRA MIDE HCL 49191711091 No Longer Active Checo Conklin MD Active CELEXA 20 MG TABS 1 tablet by mouth daily CITALOPRAM HYDROBROMIDE 10291696750 No Longer Active Cheoc Conklin MD Activ e AZITHROMYCIN 250 MG TABS 2 po qd x 1 day, then 1 po qd x 4 days AZITHROMYCIN 27640998357 No Longer Active Checo Conklin MD Active HYDROCODONE-ACETAMINOPHEN 5-325 MG TABS 1 po q 6hr PRN Pain 2013 HYDROCODONE-ACETAMINOPHEN 74628221103 No Longer Active Lenora Conklin MD Active PHENAZOPYRIDINE HCL 200 MG TABS take 1 tab po TID for bladder pa in PHENAZOPYRIDINE HCL 83831128377 No Longer Active Checo Joshua Active CIPRO 500 MG TAB 1 tablet by mouth twice daily CIPROFLOXACIN HCL 89668765368 No Longer Active Dangelo Rangel MD Active HYDROCODONE-ACETAMINOPHEN 5-325 MG TABS 1/2 to 1 po q 4 hour s prn cough HYDROCODONE-ACETAMINOPHEN 33025633422 No Longer Activ e Dangelo Rangel MD Active BACTRIM DS 800-160 MG TABS 1 po BID x 7 days 0 SULFAMETHOXAZOLE-TRIMETHOPRIM 20066030401 No Longer Active Checo Conklin MD Active PREDNISONE 20 MG TAB 2 tabs daily for 3 days, 1 t ab daily for 3 days, 1/2 tab daily for 2 days PREDNISONE 27261167530 No Longer Active Checo Conklin MD Active TRIAMCINOLONE ACETONIDE 0.1 % OINT Apply to affected a reas TID for up to 2 weeks TRIAMCINOLONE ACETONIDE 83472838125 No Longer A ctive Checo Conklin MD Active CEFDINIR 300 MG CAPS by mouth twice a day CEFDI JAZZY 59799760771 No Longer Active Dangelo Rangel MD Active BUPROPION HCL (SMOKING DETER) 150 MG [id number] 1 a day for 1 week then 1 twice a day BUPROPION HCL (SMOKING DETER) 98911063604 No Lo nger Active Checo Conklin MD Active SIMVASTATIN 20 MG TABS 1 po qd SIMVASTATIN 1815412361 5 Active Checo Conklin MD Active CHANTIX STARTING MONTH KARTHIK 0.5 MG X 11 & 1 MG X 42 TAB S 0.5mg daily for 3 days, then 0.5mg BID for 4 days, then 1mg BID VARENICLINE TARTRATE 91032787691 No Longer Active Checo Conklin MD Activ e XANAX 0.5 MG TABS 1 po BID PRN anxiety ALPRAZOLAM 40313658323 Active Checo Conklin MD Active CONCERTA 18 MG CR-TABS 1 po q a.m. METHYLPHENID ATE HCL 89759218800 No Longer Active Checo Conklin MD Active AMBIEN 5 MG TAB 1 po qHS PRN Insomnia ZOLPIDEM TARTRATE 60690790216 Active Checo Conklin MD Active TRAZODONE HCL 100 MG TAB 0.5 to 1 po qHS PRN Insomnia TRAZODONE HCL 71485358291 No Longer Active Checo Conklin MD Acti ve FIORICET 325-50-40 MG TAB 1 tablet by mouth four times daily as needed [id number] 55737420481 No Longer Active Checo Conklin MD Active PHENERGAN CREAM* 25mg applied to wrist q6hr PRN Nausea PHENERGAN CREAM* No Longer Active Checo Conklin MD A ctive FLONASE 50 MCG/ACT SUSP 1 spray each nostril am and hs FLUTICASONE PROPIONATE 25244578925 No Longer Active Checo Simms e ANTIPYRINE-BENZOCAINE 5.4-1.4 % SOLN 1-2 drops in affected ear BENZOCAINE-ANTIPYRINE 17062835348 No Longer Active Checo Conklin MD Active CEFDINIR 300 MG CAPS 1 po bid CEFDINIR 55022494 120 No Longer Active Checo Conklin MD Active PREDNISONE 20 MG TAB 2 tabs daily for 3 days, 1 t ab daily for 3 days, 1/2 tab daily for 2 days PREDNISONE 23779359997 No Longer Active Aracelis Conklin MD Active AZITHROMYCIN 250 MG TABS 2 po qd x 1 day, then 1 po qd x 4 days AZITHROMYCIN 23203994285 No Longer Active Checo Conklin MD Active PREDNISONE 20 MG TAB 2 tabs daily for 3 days, 1 t ab daily for 3 days, 1/2 tab daily for 2 days PREDNISONE 72874604146 No Longer Active Checo Conklin MD Active ZITHROMAX Z-KARTHIK 250 MG TABS 2 today, then 1 daily for 4 days 201 09/18/28 AZITHROMYCIN 47173892911 No Longer Active Paul Hamlin MD Active FOCALIN XR 10 MG [id number] 1 po q a.m. D EXMETHYLPHENIDATE HCL 45738530175 No Longer Active Paul Hamlin MD Activ e PERCOCET 10-325 MG TABS 1 tablet every 6 hours as needed for pain OXYCODONE-ACETAMINOPHEN 99572842864 No Longer Active Paul Hamlin MD Active LORTAB 5 5-500 MG TABS 1/2 to 1 tablet by mouth flaquito ry 4 hours as needed for pain HYDROCODONE-ACETAMINOPHEN 65332252478 No Longer Active Checo Conklin MD Active FOCALIN XR 15 MG [id number] 1 po q a.m. D EXMETHYLPHENIDATE HCL 79312329296 No Longer Active Checo Conklin MD Activ e ZOFRAN ODT 4 MG TBDP 1 po q6hr PRN Nausea ONDAN SETRON 87337202668 No Longer Active Checo Conklin MD Active PERCOCET 5-325 MG TABS 1 tablet by mouth every 6 hours as needed OXYCODONE-ACETAMINOPHEN 03548495472 No Longer Active Checo Conklin MD Active PYRIDIUM 200 MG TABS take 1 tab po TID prn urinary pain. 0 PHENAZOPYRIDINE HCL 29729465166 No Longer Active Checo Conklin MD Active FLUCONAZOLE 150 MG TABS take 1 tab po qday once 04/06 FLUCONAZOLE 72614565562 No Longer Active Dangelo Rangel MD Acti ve CIPRO 500 MG TAB 1 tablet by mouth twice daily CIPROFLOXACIN HCL 71561712460 No Longer Active Dangelo Rangel MD Active PYRIDIUM 200 MG TABS take 1 tab po TID prn urinary pain. 0 PYRIDIUM 200 MG TABS 6011831 PHENAZOPYRIDINE HCL Inactive PERCOCET 5-325 MG TABS 1 tablet by mouth every 6 hours as needed PERCOCET 5-325 MG TABS 6185538 OXYCODONE-ACETAMINOPHEN I nactive ZOFRAN ODT 4 MG TBDP 1 po q6hr PRN Nausea ZOFRAN ODT 4 MG TBDP 684798 ONDANSETRON Inactive FOCALIN XR 15 MG [id number] 1 po q a.m. F OCALIN XR 15 MG [id number] DEXMETHYLPHENIDATE HCL Inactive LORTAB 5 5-500 MG TABS 1/2 to 1 tablet by mouth flaquito ry 4 hours as needed for pain LORTAB 5 5-500 MG TABS HYDROCODONE-A CETAMINOPHEN Inactive PERCOCET 10-325 MG TABS 1 tablet every 6 hours as needed for pain PERCOCET 10-325 MG TABS 1411302 OXYCODONE-ACETAMINOPHEN Inactive FOCALIN XR 10 MG [id number] 1 po q a.m. F OCALIN XR 10 MG [id number] DEXMETHYLPHENIDATE HCL Inactive CEFDINIR 300 MG CAPS 1 po bid CEFDINIR 300 MG CAPS 20 0346 CEFDINIR Inactive ANTIPYRINE-BENZOCAINE 5.4-1.4 % SOLN 1-2 drops in affected ear ANTIPYRINE-BENZOCAINE 5.4-1.4 % SOLN 906469 BENZOCAINE-ANTIPYRINE I nactive FLONASE 50 MCG/ACT SUSP [...] PRN Insomnia TRAZODONE HCL 100 MG TAB 900824 TRAZODONE HCL Inactive CONCERTA 18 MG CR-TABS [...] s prn cough HYDROCODONE-ACETAMINOPHEN 5-325 MG TABS 459246 HYDROCODONE-ACETAMINOPHEN Inactive PHENAZOPYRIDINE HCL 200 MG TABS take 1 tab po TID for bladder pa in PHENAZOPYRIDINE HCL 200 MG TABS 7594562 PHENAZOPYRIDINE HCL Inactive HYDROCODONE-ACETAMINOPHEN 5-325 MG TABS 1 po q 6hr PRN Pain 2013 HYDROCODONE-ACETAMINOPHEN 5-325 MG TABS 376933 HYDROCODONE-ACETAMINOPHEN Inactive CELEXA 20 MG TABS 1 tablet by mouth daily CELEXA 20 MG TABS 758276 CITALOPRAM HYDROBROMIDE Inactive REGLAN 10 MG TAB 1 po TID PRN Nausea REGLAN 10 MG TAB 936087 METOCLOPRAMIDE HCL Inactive LAMISIL 250 MG TAB 1 po qd LAMISIL 250 MG TAB 761278 TERBINAFINE HCL Inactive DICLOFENAC SODIUM 75 MG TBEC 1 tablet by mouth twice daily P RN Knee pain DICLOFENAC SODIUM 75 MG TBEC 457818 DICLOFENAC S ODIUM Inactive METOCLOPRAMIDE HCL 10 MG ORAL TABS take one PO tid PRN nausea 20 29/12/14 METOCLOPRAMIDE HCL 10 MG ORAL TABS 031185 METOCLOPRAMID E HCL Inactive TERBINAFINE HCL 250 MG ORAL TABS take one table PO one time abran y TERBINAFINE HCL 250 MG ORAL TABS 609226 TERBINAFINE HCL Inactive BUPROPION HCL ER (SR) 100 MG ORAL [id number] take one t ablet by mouth one time daily for one week then take 1 two times daily BUPROPION HCL ER (SR) 100 MG ORAL [id number] BUPROPION HCL Inacti ve TRAVEL SICKNESS 25 MG ORAL CHEW chew and swallow one t ablet every 6 hours as needed TRAVEL SICKNESS 25 MG ORAL CHEW 828937 MECLIZINE HCL Inactive SUMATRIPTAN SUCCINATE 100 MG ORAL TABS Take one PRN for migrane SUMATRIPTAN SUCCINATE 100 MG ORAL TABS 196822 SUMATRIPT AN SUCCINATE Inactive COMPRO 25 MG RECTAL SUPP insert or apply one supposit ory rectally as directed every 12 hours as needed for nausea COMP RO 25 MG RECTAL SUPP 937677 PROCHLORPERAZINE Inactive ONDANSETRON [address] one tablet on tongue and allow to dissolve every 6 hours as needed for vomitting ON DANSETRON 8 MG ORAL TBDP 467893 ONDANSETRON Inactive HYDROCODONE-ACETAMINOPHEN 5-325 MG TABS 0.5 to 1 tab b y mouth every 6 hours as needed HYDROCODONE-ACETAMINOPHEN 5-325 MG TABS 8 03636 HYDROCODONE-ACETAMINOPHEN Inactive BACTRIM DS 800-160 MG TAB 1 tab by mouth twice daily 2 BACTRIM DS 800-160 MG TAB 454612 TRIMETHOPRIM-SULFAMETHOXAZOLE Inac tive DIFLUCAN 150 MG TAB 1 tablet by mouth if needed, hold until symptoms start DIFLUCAN 150 MG TAB 970922 FLUCONAZOLE Inactive IBUPROFEN 800 MG TABS 1 tab every 8 hours with food 20 31/03/21 IBUPROFEN 800 MG TABS 886089 IBUPROFEN Inactive HYDROCODONE-ACETAMINOPHEN 5-325 MG TABS 1 tab by mouth every 6 hours as needed HYDROCODONE-ACETAMINOPHEN 5-325 MG TABS 698749 HYDROCODONE-ACETAMINOPHEN Inactive BACTROBAN 2 % CREAM Apply to affected area BID for up to 10 days BACTROBAN 2 % CREAM 970120 MUPIROCIN CALCIUM Inactive MAGNESIUM CITRATE 1.745 GM/30ML ORAL SOLN 150ml po BID PRN C onstipation MAGNESIUM CITRATE 1.745 GM/30ML ORAL SOLN 172250 0 MAGNESIUM CITRATE Inactive DIFLUCAN 150 MG TAB 1 tablet by mouth qod DIFLUCAN 150 MG TAB 592985 FLUCONAZOLE Inactive BACTRIM DS 800-160 MG TAB 1 tab by mouth twice daily 2 BACTRIM DS 800-160 MG TAB 689067 TRIMETHOPRIM-SULFAMETHOXAZOLE Inac tive CIPRO 500 MG TAB 1 tablet by mouth twice daily CIPRO 500 MG TAB 904963 CIPROFLOXACIN HCL Inactive FLUCONAZOLE 150 MG TABS take 1 tab po qday once 04/06 FLUCONAZOLE 150 MG TABS 19760325 FLUCONAZOLE Inactive ZITHROMAX Z-KARTHIK 250 MG TABS 2 today, then 1 daily for 4 days 201 09/18/28 ZITHROMAX Z-KARTHIK 250 MG TABS 1977778 AZITHROMYCIN Inac tive PREDNISONE 20 MG TAB 2 tabs daily for 3 days, 1 t ab daily for 3 days, 1/2 tab daily for 2 days PREDNISONE 20 MG TAB 542188 PREDNISON E Inactive AZITHROMYCIN 250 MG TABS 2 po qd x 1 day, then 1 po qd x 4 days AZITHROMYCIN 250 MG TABS 4312969 AZITHROMYCIN Inactiv e PREDNISONE 20 MG TAB 2 tabs daily for 3 days, 1 t ab daily for 3 days, 1/2 tab daily for 2 days PREDNISONE 20 MG TAB 508684 PREDNISON E Inactive CEFDINIR 300 MG CAPS by mouth twice a day CEFDINIR 300 MG CAPS 077623 CEFDINIR Inactive TRIAMCINOLONE ACETONIDE 0.1 % OINT Apply to affected a reas TID for up to 2 weeks TRIAMCINOLONE ACETONIDE 0.1 % OINT 815064 6 TRIAMCINOLONE ACETONIDE Inactive PREDNISONE 20 MG TAB 2 tabs daily for 3 days, 1 t ab daily for 3 days, 1/2 tab daily for 2 days PREDNISONE 20 MG TAB 443684 PREDNISON E Inactive BACTRIM DS 800-160 MG TABS 1 po BID x 7 days 0 BACTRIM DS 800-160 MG TABS 820243 SULFAMETHOXAZOLE-TRIMETHOPRIM Inactive CIPRO 500 MG TAB 1 tablet by mouth twice daily CIPRO 500 MG TAB 553097 CIPROFLOXACIN HCL Inactive AZITHROMYCIN 250 MG TABS 2 po qd x 1 day, then 1 po qd x 4 days AZITHROMYCIN 250 MG TABS 8613550 AZITHROMYCIN Inactiv e FLAGYL 500 MG TAB 1 tablet by mouth bid FLAGYL 500 MG TAB 995963 METRONIDAZOLE Inactive AZITHROMYCIN 250 MG TABS 2 po qd x 1 day, then 1 po qd x 4 days AZITHROMYCIN 250 MG TABS 9543137 AZITHROMYCIN Inactiv e Immunizations Vaccine Administration Date [...] Range Description Lab Report: CBC - Hematology hematocrit, blood 39.2 % 36.0-46.0 mean corpuscular volume, RBC 98 fL 80-97 platelet count 210 10^3/MM^3 10*3/mm3 949-929 5144/01/26 red blood cell distribution width 13.3 % 11 .6-14.8 mean corpuscular hemoglobin concentration, RBC 33.6 G/DL % 31.8-35.4 hemoglobin, blood 13.2 g/dL 12.0-16.0 erythrocyte (RBC) count 4.02 10^6/MM^3 10*6/mm3 4.04-5.4 8 leukocyte count, blood 8.2 10^3/MM^3 10*3/mm3 4.6-10.2 mean corpuscular hemoglobin, RBC 32.7 pg 27. 0-31.2 Lab Report: CBC W/DIFF - Hematology hematocrit, blood 42.8 % 36.0-46.0 mean corpuscular volume, RBC 97 fL 80-97 mean corpuscular hemoglobin, RBC 32.9 pg 27. 0-31.2 mean corpuscular hemoglobin concentration, RBC 33.8 G/DL % 31.8-35.4 red blood cell distribution width 13.0 % 11 .6-14.8 platelet count 248 10^3/MM^3 10*3/mm3 784-537 0924/05/27 leukocyte count, blood 8.0 10^3/MM^3 10*3/mm3 4.6-10.2 neutrophils as percent of blood leukocytes 64.6 % 42.2-75.2 monocytes as percent of blood leukocytes 7.6 % 1.7-9.3 lymphocytes as percent of blood leukocytes 25.1 % 20.5-51.1 erythrocyte (RBC) count 4.40 10^6/MM^3 10*6/mm3 4.04-5.4 8 hemoglobin, blood 14.5 g/dL 12.0-16.0 Lab Report: CBC W/DIFF, Comp. Metabolic Panel, Qual [facility] [place] - Chemistry sodium, serum 139 mmol/L 553-730 4714/10/21 carbon dioxide, venous blood 33.5 mmol/L 21.0-32 [...] Report: CBC W/DIFF, Comp. Metabolic Panel, Qual [facility] [place] - Hematology leukocyte count, blood 7.9 10^3/MM^3 [...] 248 10^3/MM^3 10*3/mm3 142-424 Lab Report: Chlamydia/GC [facility]TIM[facility]/33945 - Lab chlamydia DNA probe NOT DETECTED NOT DETECTED Lab Report: Chlamydia/[facility]/59362 - Microbiology Neisseria gonorrhoeae DNA probe NOT DETECTED NO T DETECTED Lab Report: Comp. Metabolic Panel, Lipid Panel, Thyroid Stimulating Horm ... - Chemistry potassium, serum 4.0 mmol/L 3.5-5.2 chloride, serum 105 mmol/L 98-107 blood glucose 85 mg/dL 65-110 urea nitrogen, blood 9 mg/dL 7-18 carbon dioxide, venous blood 30.0 mmol/L 21.0-32 .0 sodium, serum 141 mmol/L 848-004 2308/01/26 protein, total urine random Negative mg/dL Negative RBC, urine, dipstick Negative Negative creatinine, serum 0.66 mg/dL 0.55-1.30 alanine aminotransferase (SGPT), serum 31 U/L 12-78 aspartate aminotransferase (SGOT), serum 21 U/L 15-37 calcium, serum 8.2 mg/dL 8.5-10.1 bilirubin, serum, total 1.10 mg/dL 0.00-1.00 cholesterol, serum 178 mg/dL 785-755 8407/01/26 triglyceride, serum, fasting 149 mg/dL 30-200 HDL [...] ... - Chemistry sodium, serum 137 mmol/L 490-182 6972/05/27 carbon dioxide, venous blood 29.1 mmol/L 21.0-32 [...] 5.0-8.5 Encounters Code Encounter Date Provider Facility CPT-43636 Level 3 Est. Patient 09:11:49 CDT Efren almendarez APRN [facility] CPT-52954 Level 2 Est. Patient 19:53:27 CDT Tanner hill MD [facility] CPT-02201 Level 3 Est. Patient 09:15:34 CDT Efren Nicolas sagastumerico [facility] CPT-48115 Level 3 Est. Patient 11:28:51 ULTRASOUND SPECIALIST Efren Nicolas erickson [facility] CPT-06014 Level 4 Est. Patient 13:55:46 ULTRASOUND SPECIALIST Checo Conklin MD [facility] CPT-57169 Level 4 Est. Patient 17:10:53 CDT Checo Conklin MD [facility] CPT-05378 Level 3 Est. Patient 15:56:22 CDT Checo Conklin MD [facility] CPT-26122 Level 3 Est. Patient 15:29:07 CDT Checo Conklin MD [facility] CPT-10452 Level 3 Est. Patient 14:38:41 CDT Checo Conklin MD [facility] CPT-78197 Level 3 Est. Patient 15:22:03 ULTRASOUND SPECIALIST Thomas reynolds DO [facility] CPT-17903 Level 3 Est. Patient 13:34:17 ULTRASOUND SPECIALIST Checo Conklin MD [facility] CPT-71945 Level 3 Est. Patient 12:29:32 CDT Dangelo arroyo MD [facility]-83168 Level 3 Est. Patient 16:53:02 CDT Checo Conklin MD [facility] CPT-78871 Level 3 Est. Patient 16:37:13 CDT Checo Conklin MD [facility] CPT-12882 Level 3 Est. Patient 16:16:59 CDT Paul Hamlin MD [facility]-11980 Level 3 Est. Patient 14:20:13 CDT Dangelo arroyo MD [facility]-80680 Level 4 Est. Patient 11:29:33 CDT Checo Conklin MD [facility] CPT-11568 Level 3 Est. Patient 17:08:31 CDT Checo Conklin MD [facility] CPT-04558 Level 3 Est. Patient 16:50:42 ULTRASOUND SPECIALIST Checo Conklin MD [facility] CPT-59561 Level 4 Est. Patient 09:26:08 ULTRASOUND SPECIALIST Checo Conklin MD [facility] CPT-79155 Level 3 Est. Patient 11:37:10 CDT Checo Conklin MD [facility] CPT-08083 Level 4 Est. Patient 14:07:38 CDT Checo Conklin MD [facility] CPT-38340 Level 3 Est. Patient 09:54:41 CDT Checo Conklin MD [facility] CPT-06687 Level 3 Est. Patient 11:10:54 CDT Paul Hamlin MD [facility] CPT-34550 Level 3 Est. Patient 14:16:56 ULTRASOUND SPECIALIST Checo Conklin MD [facility] CPT-96377 Level 3 Est. Patient 11:04:11 ULTRASOUND SPECIALIST Checo Conklin MD [facility] CPT-10428 Level 3 Est. Patient 17:09:26 CDT Dangelo arroyo MD [facility] CPT-78321 Level 3 Est. Patient 16:54:37 CDT Checo Conklin MD [facility] Procedures Code Procedure Name Date Entry Date Standard Desc ription CPT-16127 UA w micro - LAB USE ONLY 17:06:46 CDT 2015 CPT-28446 [facility] Qual - LAB USE ONLY 17:06:46 CDT 05/06 CPT-05291 CMP - LAB USE ONLY 17:06:46 CDT CPT-55288 CBC with Diff - LAB USE ONLY 17:06:45 CDT 2 CPT-43600 Venipuncture Draw Fee 17:06:45 CDT CPT-LR Lesion Removal 19:53:27 CDT CPT-OV Office Visit 11:31:28 CDT CPT-84120 Tubersol 09:39:29 CDT CPT-J2550 Phenergan 25 mg (Promethazine) 13:59:02 ULTRASOUND SPECIALIST CPT-J1885 Toradol 60 mg (Ketorolac) 13:59:02 ULTRASOUND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
--- OUTSIDE RECORDS SUMMARY | 2019-09-29 02:17 | XMS REPORT | Clinical Summary ---
Author Author Admin, Bethany Ayala [facility] [employer] [facility] Address Unknown Phone Unavailable Allergies, Adverse [...] TABLET 1.5 po qd PAR OXETINE HCL [id number] Active Checo Conklin MD Active FLUTICASONE PROPIONATE 50 MCG/ACT NASAL SUSPENSION 2 s prays/nostril qd PRN Congestion/Allergies FLUTICASONE PROPIONATE [id number] 9 No Longer Active Checo Conklin MD Active AMOXICILLIN 500 MG ORAL CAPSULE 2 po BID x 10 days 201 01/15/27 AMOXICILLIN 59699205805 No Longer Active Checo Conklin MD Activ e MIRALAX ORAL POWDER 8.5 to 17g po qd PRN Constipation POLYETHYLENE GLYCOL 3350 33346146637 Active Checo Conklin MD Active CLARITIN 10 MG ORAL TABLET 1 tablet by mouth daily as needed for allergies LORATADINE 31160892987 No Longer Active Checo Ortiz MD Active BACTRIM DS 800-160 MG ORAL TABLET 1 tab by mouth twice daily 201 12/19/26 TRIMETHOPRIM-SULFAMETHOXAZOLE 19454441381 No Longer Active Ragini Carrillo MD Active DIFLUCAN 150 MG ORAL TABLET 1 tablet by mouth qod 2015 FLUCONAZOLE 30661755102 No Longer Active fEren Medel APRN Act mike AZITHROMYCIN 250 MG ORAL TABLET 2 po qd x 1 day, then 1 po q d x 4 days AZITHROMYCIN 92358988729 No Longer Active Efren flores 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 DEXMETHYLPHENIDATE HCL 53197663732 Active Checo Conklin MD Active MAGNESIUM CITRATE 1.745 GM/30ML ORAL SOLUTION 150ml po BID P RN Constipation MAGNESIUM CITRATE 40054006414 No Longer Active Checo Conklin MD Active BACTROBAN 2 % EXTERNAL CREAM Apply to affected area BID for up to 10 days MUPIROCIN CALCIUM 27759974496 No Longer Active Checo Conklin MD Active HYDROCODONE-ACETAMINOPHEN 5-325 MG ORAL TABLET 1 tab b y mouth every 6 hours as needed HYDROCODONE-ACETAMINOPHEN 04744843221 No Longer Active Checo Conklin MD Active IBUPROFEN 800 MG ORAL TABLET 1 tab every 8 hours with food 03/20 IBUPROFEN 80272291024 No Longer Active Checo Conklin MD Active DIFLUCAN 150 MG ORAL TABLET 1 tablet by mouth if neede d, hold until symptoms start FLUCONAZOLE 43053492481 No Longer Active Checo Conklin MD Active BACTRIM DS 800-160 MG ORAL TABLET 1 tab by mouth twice daily 201 11/23/03 TRIMETHOPRIM-SULFAMETHOXAZOLE 00673643954 No Longer Active Bonnie Méndez LPN Active HYDROCODONE-ACETAMINOPHEN 5-325 MG ORAL TABLET 0.5 to 1 tab by mouth every 6 hours as needed HYDROCODONE-ACETAMINOPHEN 76365310153 No Longer Active Checo Conklin MD Active ONDANSETRON 8 MG ORAL TABLET DISINTEGRATING place one tablet on tongue and allow to dissolve every 6 hours as needed for vomitting ONDANSETRON 97855224907 No Longer Active Checo Conklin MD Activ e COMPRO 25 MG RECTAL SUPPOSITORY insert or apply one garza ppository rectally as directed every 12 hours as needed for nausea PROCHLORPERAZINE 51694792811 No Longer Active Checo Conklin MD A ctive SUMATRIPTAN SUCCINATE 100 MG ORAL TABLET Take one PRN for migran e SUMATRIPTAN SUCCINATE 80251252682 No Longer Active Checo Conklin MD Active TRAVEL SICKNESS 25 MG ORAL TABLET CHEWABLE chew and sw allow one tablet every 6 hours as needed MECLIZINE HCL 57345355075 No Longer A ctive Checo Conklin MD Active BUPROPION HCL ER (SR) 100 MG ORAL TABLET EXTENDED RELE ASE 12 HOUR take one tablet by mouth one time daily for one week then take 1 two times daily BUPROPION HCL 88340330100 No Longer Active Checo gallagher MD Active TERBINAFINE HCL 250 MG ORAL TABLET take one table PO one time da moises TERBINAFINE HCL 05295087448 No Longer Active Checo Conklin MD Active METOCLOPRAMIDE HCL 10 MG ORAL TABLET take one PO tid PRN nausea METOCLOPRAMIDE HCL 23798380435 No Longer Active Checo Conklin MD Active DICLOFENAC SODIUM 75 MG ORAL TABLET DELAYED RELEASE 1 tablet by mouth twice daily PRN Knee pain DICLOFENAC SODIUM 62819646456 No Longer Active Checo Conklin MD Active LAMISIL 250 MG ORAL TABLET 1 po qd TERBINAFI NE HCL 78164986053 No Longer Active Checo Conklin MD Active REGLAN 10 MG ORAL TABLET 1 po TID PRN Nausea 3 METOCLOPRAMIDE HCL 11122376646 No Longer Active Checo Conklin MD Active CELEXA 20 MG ORAL TABLET 1 tablet by mouth daily 09/26 CITALOPRAM HYDROBROMIDE 54514411553 No Longer Active Checo Conklin MD Active AZITHROMYCIN 250 MG ORAL TABLET 2 po qd x 1 day, then 1 po q d x 4 days AZITHROMYCIN 07493721727 No Longer Active Checo Ortiz MD Active HYDROCODONE-ACETAMINOPHEN 5-325 MG ORAL TABLET 1 po q 6hr PRN Pa in HYDROCODONE-ACETAMINOPHEN 71571475893 No Longer Active Lenora Conlkin MD Active PHENAZOPYRIDINE HCL 200 MG ORAL TABLET take 1 tab po TID for bladder pain PHENAZOPYRIDINE HCL 70600673323 No Longer Active Joe Conklin MD Active CIPRO 500 MG ORAL TABLET 1 tablet by mouth twice daily CIPROFLOXACIN HCL 20620796382 No Longer Active Dangelo Rangel MD Active HYDROCODONE-ACETAMINOPHEN 5-325 MG ORAL TABLET 1/2 to 1 po q 4 hours prn cough HYDROCODONE-ACETAMINOPHEN 42397947276 No Longer Activ e Dangelo Rangel MD Active BACTRIM DS 800-160 MG ORAL TABLET 1 po BID x 7 days 29/04/10 SULFAMETHOXAZOLE-TRIMETHOPRIM 57631719307 No Longer Active Checo Conklin MD Active PREDNISONE 20 MG ORAL TABLET 2 tabs daily for 3 days, 1 tab daily for 3 days, 1/2 tab daily for 2 days PREDNISONE 07823320754 No Longer Active Checo Conklin MD Active TRIAMCINOLONE ACETONIDE 0.1 % EXTERNAL OINTMENT Apply to affected areas TID for up to 2 weeks TRIAMCINOLONE ACETONIDE 98475768239 No Longer Active Checo Conklin MD Active CEFDINIR 300 MG ORAL CAPSULE by mouth twice a day 2013 CEFDINIR 59897289536 No Longer Active Dangelo Rangel MD Acti ve BUPROPION HCL ER (SMOKING DET) 150 MG ORAL TABLET EXTE NDED RELEASE 12 HOUR 1 a day for 1 week then 1 twice a day BUPROPION HCL (SMOKING DETER) 80437270717 No Longer Active Checo Conklin MD Active SIMVASTATIN 20 MG ORAL TABLET 1 po qd SIMVASTAT IN 94847680982 Active Checo Conklin MD Active CHANTIX STARTING MONTH KARTHIK 0.5 MG X 11 & 1 MG X 42 ORA L TABLET 0.5mg daily for 3 days, then 0.5mg BID for 4 days, then 1mg BID VARENICLINE TARTRATE 56517903423 No Longer Active Checo Conklin MD Activ e XANAX 0.5 MG ORAL TABLET 1 po BID PRN anxiety A LPRAZOLAM 21457859161 Active Checo Conklin MD Active CONCERTA 18 MG ORAL TABLET EXTENDED RELEASE 1 po q a.m. METHYLPHENIDATE HCL 28817176583 No Longer Active Checo Conklin MD Active AMBIEN 5 MG ORAL TABLET 1 po qHS PRN Insomnia Z OLPIDEM TARTRATE 43138563368 Active Checo Conklin MD Active TRAZODONE HCL 100 MG ORAL TABLET 0.5 to 1 po qHS PRN Insomnia 20 30/07/08 TRAZODONE HCL 47881969562 No Longer Active Checo Conklin MD Active FIORICET 325-50-40 MG TAB 1 tablet by mouth four times daily as needed [id number] 84141168197 No Longer Active Checo Conklin MD Active PHENERGAN CREAM* 25mg applied to wrist q6hr PRN Nausea PHENERGAN CREAM* No Longer Active Checo Gonzales ctive FLONASE 50 MCG/ACT NASAL SUSPENSION 1 spray each nostril am and hs FLUTICASONE PROPIONATE 60120068230 No Longer Active Checo Conklin MD Active ANTIPYRINE-BENZOCAINE 5.4-1.4 % OTIC SOLUTION 1-2 drops in affec yohannes ear BENZOCAINE-ANTIPYRINE 76413584163 No Longer Active Checo Conklin MD Active CEFDINIR 300 MG ORAL CAPSULE 1 po bid CEFDINIR 85932937715 No Longer Active Checo Conklin MD Active PREDNISONE 20 MG ORAL TABLET 2 tabs daily for 3 days, 1 tab daily for 3 days, 1/2 tab daily for 2 days PREDNISONE 75718248579 No Longer Active Checo Conklin MD Active AZITHROMYCIN 250 MG ORAL TABLET 2 po qd x 1 day, then 1 po q d x 4 days AZITHROMYCIN 84587206279 No Longer Active Checo Ortiz MD Active PREDNISONE 20 MG ORAL TABLET 2 tabs daily for 3 days, 1 tab daily for 3 days, 1/2 tab daily for 2 days PREDNISONE 35798811225 No Longer Active Checo Conklin MD Active ZITHROMAX Z-KARTHIK 250 MG ORAL TABLET 2 today, then 1 daily for 4 d ays AZITHROMYCIN 94104552704 No Longer Active Paul Hamlin MD Active FOCALIN XR 10 MG ORAL CAPSULE EXTENDED RELEASE 24 HOUR 1 po q a. m. DEXMETHYLPHENIDATE HCL 32959196605 No Longer Active Paul Hamlin MD Active PERCOCET 10-325 MG ORAL TABLET 1 tablet every 6 hours as needed for pain OXYCODONE-ACETAMINOPHEN 93285284295 No Longer Active Paul Hamlin MD Active LORTAB 5-500 MG ORAL TABLET 1/2 to 1 tablet by mouth e very 4 hours as needed for pain HYDROCODONE-ACETAMINOPHEN 93907512097 No Longer Active Checo Conklin MD Active FOCALIN XR 15 MG ORAL CAPSULE EXTENDED RELEASE 24 HOUR 1 po q a. m. DEXMETHYLPHENIDATE HCL 85218647770 No Longer Active Checo Conklin MD Active ZOFRAN ODT 4 MG ORAL TABLET DISINTEGRATING 1 po q6hr PRN Nausea ONDANSETRON 71668631671 No Longer Active Checo Conklin MD Active PERCOCET 5-325 MG ORAL TABLET 1 tablet by mouth every 6 hour s as needed OXYCODONE-ACETAMINOPHEN 90486489169 No Longer Active Checo Conklin MD Active PYRIDIUM 200 MG ORAL TABLET take 1 tab po TID prn urinary pain. PHENAZOPYRIDINE HCL 47080840933 No Longer Active Checo Joshua Active FLUCONAZOLE 150 MG ORAL TABLET take 1 tab po qday once FLUCONAZOLE 59081163466 No Longer Active Dangelo Rangel MD Acti ve CIPRO 500 MG ORAL TABLET 1 tablet by mouth twice daily CIPROFLOXACIN HCL 61110990587 No Longer Active Dangelo Rangel MD Active PYRIDIUM 200 MG ORAL TABLET take 1 tab po TID prn urinary pain. PYRIDIUM 200 MG ORAL TABLET 4189062 PHENAZOPYRIDINE HCL Inactive PERCOCET 5-325 MG ORAL TABLET 1 tablet by mouth every 6 hour s as needed PERCOCET 5-325 MG ORAL TABLET 9190273 OXYCODONE-ACETAMINOPHEN Inactive ZOFRAN ODT 4 MG ORAL TABLET DISINTEGRATING 1 po q6hr PRN Nausea ZOFRAN ODT 4 MG ORAL TABLET DISINTEGRATING 219759 ONDAN SETRON Inactive FOCALIN XR 15 MG ORAL CAPSULE EXTENDED RELEASE 24 HOUR 1 po q a. m. FOCALIN XR 15 MG ORAL CAPSULE EXTENDED RELEASE 24 HOUR DEXMETHYLPHENIDATE HCL Inactive LORTAB 5-500 MG ORAL TABLET 1/2 to 1 tablet by mouth e very 4 hours as needed for pain LORTAB 5-500 MG ORAL TABLET 892424 HYDROCODONE-ACETAMINOPHEN Inactive PERCOCET 10-325 MG ORAL TABLET 1 tablet every 6 hours as needed for pain PERCOCET 10-325 MG ORAL TABLET 7454682 OXYCODONE-ACETAMI NOPHEN Inactive FOCALIN XR 10 MG ORAL CAPSULE EXTENDED RELEASE 24 HOUR 1 po q a. m. FOCALIN XR 10 MG ORAL CAPSULE EXTENDED RELEASE 24 HOUR DEXMETHYLPHENIDATE HCL Inactive CEFDINIR 300 MG ORAL CAPSULE 1 po bid CEFDINI R 300 MG ORAL CAPSULE 060650 CEFDINIR Inactive ANTIPYRINE-BENZOCAINE 5.4-1.4 % OTIC SOLUTION 1-2 drops in affec yohannes ear ANTIPYRINE-BENZOCAINE 5.4-1.4 % OTIC SOLUTION 853191 BENZOCAINE-ANTIPYRINE Inactive FLONASE 50 MCG/ACT NASAL SUSPENSION 1 spray each nostril am and hs FLONASE 50 MCG/ACT NASAL SUSPENSION 3007519 FLUTICASONE PROPIONATE I nactive PHENERGAN CREAM* 25mg applied to wrist q6hr PRN Nausea PHENERGAN CREAM* Inactive FIORICET 325-50-40 MG TAB 1 tablet by mouth four times daily as needed FIORICET 325-50-40 MG TAB ACETAMINOPHEN-C AFF-BUTALBITAL Inactive TRAZODONE HCL 100 MG ORAL TABLET 0.5 to 1 po qHS PRN Insomnia 20 30/07/08 TRAZODONE HCL 100 MG ORAL TABLET 016103 TRAZODONE HCL Inactive CONCERTA 18 MG ORAL [...] cough HYDROCODONE-ACETAMINOPHEN 5-325 MG ORAL TABLET 8 80590 HYDROCODONE-ACETAMINOPHEN Inactive PHENAZOPYRIDINE HCL 200 MG ORAL TABLET take 1 tab po TID for bladder pain PHENAZOPYRIDINE HCL 200 MG ORAL TABLET 7344904 PHENAZOPYRIDINE HCL Inactive HYDROCODONE-ACETAMINOPHEN 5-325 MG ORAL TABLET 1 po q 6hr PRN Pa in HYDROCODONE-ACETAMINOPHEN 5-325 MG ORAL TABLET 682140 HYDROCODONE-ACETAMINOPHEN Inactive CELEXA 20 MG ORAL TABLET 1 tablet by mouth daily 09/26 CELEXA 20 MG ORAL TABLET 245985 CITALOPRAM HYDROBROMIDE Inactive REGLAN 10 MG ORAL TABLET 1 po TID PRN Nausea 3 REGLAN 10 MG ORAL TABLET 457119 METOCLOPRAMIDE HCL Inactive LAMISIL 250 MG ORAL TABLET 1 po qd L AMISIL 250 MG ORAL TABLET 807912 TERBINAFINE HCL Inactive DICLOFENAC SODIUM 75 MG ORAL TABLET DELAYED RELEASE 1 tablet by mouth twice daily PRN Knee pain DICLOFENAC SODIUM 75 MG ORAL TABLET DELAYED RELEASE 406867 DICLOFENAC SODIUM Inactive METOCLOPRAMIDE HCL 10 MG ORAL TABLET take one PO tid PRN nausea METOCLOPRAMIDE HCL 10 MG ORAL TABLET 158424 METOCLOPRAM ZACH HCL Inactive TERBINAFINE HCL 250 MG ORAL TABLET take one table PO one time da moises TERBINAFINE HCL 250 MG ORAL TABLET 920433 TERBINAFINE H CL Inactive BUPROPION HCL ER [...] SICKNESS 25 M G ORAL TABLET CHEWABLE 606373 MECLIZINE HCL Inactive SUMATRIPTAN SUCCINATE 100 MG ORAL TABLET Take one PRN for migran e SUMATRIPTAN SUCCINATE 100 MG ORAL TABLET 154931 SUMATRIPTAN SUCCINATE Inactive COMPRO 25 MG RECTAL SUPPOSITORY insert or apply one garza ppository rectally as directed every 12 hours as needed for nausea COMPRO 25 MG RECTAL SUPPOSITORY 472966 PROCHLORPERAZINE Inactive ONDANSETRON 8 MG ORAL TABLET DISINTEGRATING place one tablet on tongue and allow to dissolve every 6 hours as needed for vomitting ONDANSETRON 8 MG ORAL TABLET DISINTEGRATING 737172 ONDANSETRON Inactive HYDROCODONE-ACETAMINOPHEN 5-325 MG ORAL TABLET 0.5 to 1 tab by mouth every 6 hours as needed HYDROCODONE-ACETAMIN OPHEN 5-325 MG ORAL TABLET 178672 HYDROCODONE-ACETAMINOPHEN Inactive BACTRIM DS 800-160 MG ORAL TABLET 1 tab by mouth twice daily 201 11/23/03 BACTRIM DS 800-160 MG ORAL TABLET 011839 TRIMETHOPRIM-SULFAMETHOXAZOLE Inactive DIFLUCAN 150 MG ORAL TABLET 1 tablet by mouth if neede d, hold until symptoms start DIFLUCAN 150 MG ORAL TABLET 450466 FLUCONAZ OLE Inactive IBUPROFEN 800 MG ORAL TABLET 1 tab every 8 hours with food 03/20 IBUPROFEN 800 MG ORAL TABLET 141388 IBUPROFEN Krupa ctive HYDROCODONE-ACETAMINOPHEN 5-325 MG ORAL TABLET 1 tab b y mouth every 6 hours as needed HYDROCODONE-ACETAMINOPHEN 5-325 MG ORAL TABLET 304741 HYDROCODONE-ACETAMINOPHEN Inactive BACTROBAN 2 % EXTERNAL CREAM Apply to affected area BID for up to 10 days BACTROBAN 2 % EXTERNAL CREAM 540030 MUPIROCIN CA LCIUM Inactive MAGNESIUM CITRATE 1.745 GM/30ML ORAL SOLUTION 150ml po BID P RN Constipation MAGNESIUM CITRATE 1.745 GM/30ML ORAL SOLUTION 10 91979 MAGNESIUM CITRATE Inactive DIFLUCAN 150 MG ORAL TABLET 1 tablet by mouth qod 2015 DIFLUCAN 150 MG ORAL TABLET 941441 FLUCONAZOLE Inactive BACTRIM DS 800-160 MG ORAL TABLET 1 tab by mouth twice daily 201 12/19/26 BACTRIM DS 800-160 MG ORAL TABLET 872357 TRIMETHOPRIM-SULFAMETHOXAZOLE Inactive CLARITIN 10 MG ORAL TABLET 1 tablet by mouth daily as needed for allergies CLARITIN 10 MG ORAL TABLET 668115 LORATADINE I nactive FLUTICASONE PROPIONATE 50 MCG/ACT NASAL SUSPENSION 2 s prays/nostril qd PRN Congestion/Allergies FLUTICASONE PROPION ATE 50 MCG/ACT NASAL SUSPENSION 3913675 FLUTICASONE PROPIONATE Inactive CIPRO 500 MG ORAL TABLET 1 tablet by mouth twice daily CIPRO 500 MG ORAL TABLET 930247 CIPROFLOXACIN HCL Inactive FLUCONAZOLE 150 MG ORAL TABLET take 1 tab po qday once FLUCONAZOLE 150 MG ORAL TABLET 674170 FLUCONAZOLE Inactive ZITHROMAX Z-KARTHIK 250 MG ORAL TABLET 2 today, then 1 daily for 4 d ays ZITHROMAX Z-KARTHIK 250 MG ORAL TABLET 906929 AZITHROMYCIN Inactive PREDNISONE 20 MG ORAL TABLET 2 tabs daily for 3 days, 1 tab daily for 3 days, 1/2 tab daily for 2 days PREDNISONE 20 MG ORAL T ABLET 414084 PREDNISONE Inactive AZITHROMYCIN 250 MG ORAL TABLET 2 po qd x 1 day, then 1 po q d x 4 days AZITHROMYCIN 250 MG ORAL TABLET 180889 AZITHROMY SPARKLE Inactive PREDNISONE 20 MG ORAL TABLET 2 tabs daily for 3 days, 1 tab daily for 3 days, 1/2 tab daily for 2 days PREDNISONE 20 MG ORAL TABLET 672007 PREDNISONE Inactive CEFDINIR 300 MG ORAL CAPSULE by mouth twice a day 2013 CEFDINIR 300 MG ORAL CAPSULE 303763 CEFDINIR Inactive TRIAMCINOLONE ACETONIDE 0.1 % EXTERNAL OINTMENT Apply to affected areas TID for up to 2 weeks TRIAMCINOLONE ACETON ZACH 0.1 % EXTERNAL OINTMENT 1076874 TRIAMCINOLONE ACETONIDE Inactive PREDNISONE 20 MG ORAL TABLET 2 tabs daily for 3 days, 1 tab daily for 3 days, 1/2 tab daily for 2 days PREDNISONE 20 MG ORAL T ABLET 061503 PREDNISONE Inactive BACTRIM DS 800-160 MG ORAL TABLET 1 po BID x 7 days 29/04/10 BACTRIM DS 800-160 MG ORAL TABLET 803067 SULFAMETHOXAZOLE-TRIMETHOP RIM Inactive CIPRO 500 MG ORAL TABLET 1 tablet by mouth twice daily CIPRO 500 MG ORAL TABLET 075042 CIPROFLOXACIN HCL Inactive AZITHROMYCIN 250 MG ORAL TABLET 2 po qd x 1 day, then 1 po q d x 4 days AZITHROMYCIN 250 MG ORAL TABLET 275515 AZITHROMY SPARKLE Inactive FLAGYL 500 MG ORAL TABLET 1 tablet by mouth bid 04/13 FLAGYL 500 MG ORAL TABLET 614040 METRONIDAZOLE Inactive AZITHROMYCIN 250 MG ORAL TABLET 2 po qd x 1 day, then 1 po q d x 4 days AZITHROMYCIN 250 MG ORAL TABLET 777177 AZITHROMY SPARKLE Inactive AMOXICILLIN 500 MG ORAL CAPSULE 2 po BID x 10 days 201 01/15/27 AMOXICILLIN 500 MG ORAL CAPSULE 450879 AMOXICILLIN Inactive Immunizations Vaccine Administration Date Value [...] PANEL - Chemistry cholesterol, serum 192 mg/dL 032-180 7229/02/20 HDL cholesterol, serum 31 mg/dL > OR [...] 11 .0-15.0 platelet count 218 THOUSAND/UL 10*3/mm3 246-469 9384/02/20 mean platelet volume 9.7 fL 7.5-12.5 Encounters Code Encounter Date Provider Facility CPT-32275 Level 3 Est. Patient 13:05:44 CDT Paul Hamlin MD [facility] CPT-26402 Level 3 Est. Patient 11:29:55 CDT Checo Conklin MD [facility] CPT-35047 Level 4 Est. Patient 11:08:12 [employer]PERVIS[employer] Checo Conklin MD [facility] CPT-19804 Level 4 Est. 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 CPT-74759 Level 3 Est. Patient 09:11:49 CDT Efren almendarez [facility] CPT-17954 Level 2 Est. Patient 19:53:27 CDT Tanner hill MD [facility]-59271 Level 3 Est. Patient 09:15:34 CDT Efren almendarez [facility] CPT-26483 Level 3 Est. Patient 11:28:51 SUPERVISOR [employer] Efren almendarez [facility] CPT-64521 Level 4 Est. Patient 13:55:46 SUPERVISOR [employer]IS [employer] Checo Conklin MD [facility] CPT-95446 Level 4 Est. Patient 17:10:53 CDT Checo Conklin MD [facility] CPT-59653 Level 3 Est. Patient 15:56:22 CDT Checo Conklin MD [facility] CPT-75356 Level 3 Est. Patient 15:29:07 CDT Checo Conklin MD [facility] CPT-06688 Level 3 Est. Patient 14:38:41 CDT Checo Conklin MD [facility] CPT-47338 Level 3 Est. Patient 15:22:03 [employer]PER[employer] Thomas reynolds DO [facility] CPT-16471 Level 3 Est. Patient 13:34:17 SUPERVISOR [employer] Checo Conklin MD [facility] CPT-82330 Level 3 Est. Patient 12:29:32 CDT aDngelo arroyo MD [facility] CPT-56292 Level 3 Est. Patient 16:53:02 CDT Checo Conklin MD [facility] CPT-46724 Level 3 Est. Patient 16:37:13 CDT Checo Conklin MD [facility] CPT-78959 Level 3 Est. Patient 16:16:59 CDT Paul Hamlni MD [facility] CPT-92272 Level 3 Est. Patient 14:20:13 CDT Dangelo arroyo MD [facility] CPT-20095 Level 4 Est. Patient 11:29:33 CDT Checo Conklin MD [facility] CPT-72168 Level 3 Est. Patient 17:08:31 CDT Checo Conklin MD [facility] CPT-18701 Level 3 Est. Patient 16:50:42 SUPERVISOR [employer] Checo Conklin MD [facility] CPT-04862 Level 4 Est. Patient 09:26:08 SUPERVISOR [employer] Checo Conklin MD [facility] CPT-55264 Level 3 Est. Patient 11:37:10 CDT Checo Conklin MD [facility] CPT-36902 Level 4 Est. Patient 14:07:38 CDT Checo Conklin MD [facility] CPT-76523 Level 3 Est. Patient 09:54:41 CDT Checo Conklin MD [facility] CPT-74452 Level 3 Est. Patient 11:10:54 CDT Paul Hamlin MD [facility] CPT-95020 Level 3 Est. Patient 14:16:56 SUPERVISOR [employer] Checo Conklin MD [facility] CPT-01987 Level 3 Est. Patient 11:04:11 SUPERVISOR [employer] Checo Conklin MD [facility] CPT-25561 Level 3 Est. Patient 17:09:26 CDT Dangelo arroyo MD [facility] CPT-36682 Level 3 Est. Patient 16:54:37 CDT Checo Conklin MD [facility] Procedures Code Procedure Name Date Entry Date Standard Desc ription CPT-63491 UA w micro - LAB USE ONLY 17:06:46 CDT 2015 CPT-90702 [facility] [place] Qual - LAB USE ONLY 17:06:46 CDT 05/06 CPT-84338 CMP - LAB USE ONLY 17:06:46 CDT CPT-32403 CBC with Diff - LAB USE ONLY 17:06:45 CDT 2 CPT-73460 Venipuncture Draw Fee 17:06:45 CDT CPT-LR Lesion Removal 19:53:27 CDT CPT-OV Office Visit 11:31:28 CDT CPT-24654 Tubersol 09:39:29 CDT CPT-J2550 Phenergan 25 mg (Promethazine) 13:59:02 [employer] CPT-J1885 Toradol 60 mg (Ketorolac) 13:59:02 [employer]PER[employer] 2012
--- OUTSIDE RECORDS SUMMARY | 2019-09-29 02:17 | XMS REPORT | Clinical Summary ---
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 Pylori AMOXICILLIN 09343767964 Active Corry Méndez LPN Active PAROXETINE HCL 20 MG ORAL TABLET 1.5 po qd PAR OXETINE HCL 50457508414 Active Checo Conklin MD Active FLUTICASONE PROPIONATE 50 MCG/ACT NASAL SUSPENSION 2 s prays/nostril qd PRN Congestion/Allergies FLUTICASONE PROPIONATE 1258171310 9 No Longer Active Checo Conklin MD Active AMOXICILLIN 500 MG ORAL CAPSULE 2 po BID x 10 days 201 01/15/27 AMOXICILLIN 37263179695 No Longer Active Checo Conklin MD Activ e MIRALAX ORAL POWDER 8.5 to 17g po qd PRN Constipation POLYETHYLENE GLYCOL 3350 41370233550 Active Checo Conklin MD Active CLARITIN 10 MG ORAL TABLET 1 tablet by mouth daily as needed for allergies LORATADINE 88196410576 No Longer Active Checo Ortiz MD Active BACTRIM DS 800-160 MG ORAL TABLET 1 tab by mouth twice daily 201 12/19/26 TRIMETHOPRIM-SULFAMETHOXAZOLE 69920042550 No Longer Active Ragini Carrillo MD Active DIFLUCAN 150 MG ORAL TABLET 1 tablet by mouth qod 2015 FLUCONAZOLE 79504212411 No Longer Active 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 DEXMETHYLPHENIDATE HCL 21330919761 Active Checo Conklin MD Active MAGNESIUM CITRATE 1.745 GM/30ML ORAL SOLUTION 150ml po BID P RN Constipation MAGNESIUM CITRATE 77162297937 No Longer Active Checo Conklin MD Active BACTROBAN 2 % EXTERNAL CREAM Apply to affected area BID for up to 10 days MUPIROCIN CALCIUM 10053823200 No Longer Active Checo Conklin MD Active HYDROCODONE-ACETAMINOPHEN 5-325 MG ORAL TABLET 1 tab b y mouth every 6 hours as needed HYDROCODONE-ACETAMINOPHEN 07921375487 No Longer Active Checo Conklin MD Active IBUPROFEN 800 MG ORAL TABLET 1 tab every 8 hours with food 03/20 IBUPROFEN 27696478560 No Longer Active Checo Conklin MD Active DIFLUCAN 150 MG ORAL TABLET 1 tablet by mouth if neede d, hold until symptoms start FLUCONAZOLE 08662512780 No Longer Active Checo Conklin MD Active BACTRIM DS 800-160 MG ORAL TABLET 1 tab by mouth twice daily 201 11/23/03 TRIMETHOPRIM-SULFAMETHOXAZOLE 91325272976 No Longer Active K bernice Méndez LPN Active HYDROCODONE-ACETAMINOPHEN 5-325 MG ORAL TABLET 0.5 to 1 tab by mouth every 6 hours as needed HYDROCODONE-ACETAMINOPHEN 28307079794 No Longer Active Checo Conklin MD Active ONDANSETRON 8 MG ORAL TABLET DISINTEGRATING place one tablet on tongue and allow to dissolve every 6 hours as needed for vomitting ONDANSETRON 99773493102 No Longer Active Checo Conklin MD Activ e COMPRO 25 MG RECTAL SUPPOSITORY insert or apply one garza ppository rectally as directed every 12 hours as needed for nausea PROCHLORPERAZINE 95191531637 No Longer Active Checo Conklin MD A ctive SUMATRIPTAN SUCCINATE 100 MG ORAL TABLET Take one PRN for migran e SUMATRIPTAN SUCCINATE 23827557409 No Longer Active Checo Conklin MD Active TRAVEL SICKNESS 25 MG ORAL TABLET CHEWABLE chew and sw allow one tablet every 6 hours as needed MECLIZINE HCL 89786414934 No Longer A ctive Checo Conklin MD Active BUPROPION HCL ER (SR) 100 MG ORAL TABLET EXTENDED RELE ASE 12 HOUR take one tablet by mouth one time daily for one week then take 1 two times daily BUPROPION HCL 00271812918 No Longer Active Checo gallagher MD Active TERBINAFINE HCL 250 MG ORAL TABLET take one table PO one time da moises TERBINAFINE HCL 62116829735 No Longer Active Checo Conklin MD Active METOCLOPRAMIDE HCL 10 MG ORAL TABLET take one PO tid PRN nausea METOCLOPRAMIDE HCL 41418567813 No Longer Active Checo Conklin MD Active DICLOFENAC SODIUM 75 MG ORAL TABLET DELAYED RELEASE 1 tablet by mouth twice daily PRN Knee pain DICLOFENAC SODIUM 05781708328 No Longer Active Checo Conklin MD Active LAMISIL 250 MG ORAL TABLET 1 po qd TERBINAFI NE HCL 46031054823 No Longer Active Checo Conklin MD Active REGLAN 10 MG ORAL TABLET 1 po TID PRN Nausea 3 METOCLOPRAMIDE HCL 30164276865 No Longer Active Checo Conklin MD Active CELEXA 20 MG ORAL TABLET 1 tablet by mouth daily 09/26 CITALOPRAM HYDROBROMIDE 41015785910 No Longer Active Checo Conklin MD Active AZITHROMYCIN 250 MG ORAL TABLET 2 po qd x 1 day, then 1 po q d x 4 days AZITHROMYCIN 03205628284 No Longer Active Checo Ortiz MD Active HYDROCODONE-ACETAMINOPHEN 5-325 MG ORAL TABLET 1 po q 6hr PRN Pa in HYDROCODONE-ACETAMINOPHEN 16084636246 No Longer Active Lenora Conklin MD Active PHENAZOPYRIDINE HCL 200 MG ORAL TABLET take 1 tab po TID for bladder pain PHENAZOPYRIDINE HCL 26324559792 No Longer Active Joe Conklin MD Active CIPRO 500 MG ORAL TABLET 1 tablet by mouth twice daily CIPROFLOXACIN HCL 09977022792 No Longer Active Dangelo Rangel MD Active HYDROCODONE-ACETAMINOPHEN 5-325 MG ORAL TABLET 1/2 to 1 po q 4 hours prn cough HYDROCODONE-ACETAMINOPHEN 82948925308 No Longer Activ candy Rangel MD Active BACTRIM DS 800-160 MG ORAL TABLET 1 po BID x 7 days 29/04/10 SULFAMETHOXAZOLE-TRIMETHOPRIM 83490548960 No Longer Active Checo Conklin MD Active PREDNISONE 20 MG ORAL TABLET 2 tabs daily for 3 days, 1 tab daily for 3 days, 1/2 tab daily for 2 days PREDNISONE 76771384792 No Longer Active Checo Conklin MD Active TRIAMCINOLONE ACETONIDE 0.1 % EXTERNAL OINTMENT Apply to affected areas TID for up to 2 weeks TRIAMCINOLONE ACETONIDE 73282613535 No Longer Active Checo Conklin MD Active CEFDINIR 300 MG ORAL CAPSULE by mouth twice a day 2013 CEFDINIR 14576074699 No Longer Active Dangelo Rangel MD Acti ve BUPROPION HCL ER (SMOKING DET) 150 MG ORAL TABLET EXTE NDED RELEASE 12 HOUR 1 a day for 1 week then 1 twice a day BUPROPION HCL (SMOKING DETER) 51392310794 No Longer Active Chceo Conklin MD Active SIMVASTATIN 20 MG ORAL TABLET 1 po qd SIMVASTAT IN 92351204977 Active Checo Conklin MD Active CHANTIX STARTING MONTH KARTHIK 0.5 MG X 11 & 1 MG X 42 ORA L TABLET 0.5mg daily for 3 days, then 0.5mg BID for 4 days, then 1mg BID VARENICLINE TARTRATE 33894211875 No Longer Active Checo Conklin MD Activ e XANAX 0.5 MG ORAL TABLET 1 po BID PRN anxiety A LPRAZOLAM 31506990618 Active Checo Conklin MD Active CONCERTA 18 MG ORAL TABLET EXTENDED RELEASE 1 po q a.m. METHYLPHENIDATE HCL 47210602283 No Longer Active Checo Conklin MD Active AMBIEN 5 MG ORAL TABLET 1 po qHS PRN Insomnia Z OLPIDEM TARTRATE 92045857389 Active Checo Conklin MD Active TRAZODONE HCL 100 MG ORAL TABLET 0.5 to 1 po qHS PRN Insomnia 20 30/07/08 TRAZODONE HCL 59696330146 No Longer Active Checo Conklin MD Active FIORICET 325-50-40 MG TAB 1 tablet by mouth four times daily as needed [id number] 63805012771 No Longer Active Checo Conklin MD Active PHENERGAN CREAM* 25mg applied to wrist q6hr PRN Nausea PHENERGAN CREAM* No Longer Active Checo Conklin MD A ctive FLONASE 50 MCG/ACT NASAL SUSPENSION 1 spray each nostril am and hs FLUTICASONE PROPIONATE 77910427620 No Longer Active Checo Conklin MD Active ANTIPYRINE-BENZOCAINE 5.4-1.4 % OTIC SOLUTION 1-2 drops in affec yohannes ear BENZOCAINE-ANTIPYRINE 99503879373 No Longer Active Checo Conklin MD Active CEFDINIR 300 MG ORAL CAPSULE 1 po bid CEFDINIR 93805345404 No Longer Active Checo Conklin MD Active PREDNISONE 20 MG ORAL TABLET 2 tabs daily for 3 days, 1 tab daily for 3 days, 1/2 tab daily for 2 days PREDNISONE 07283487893 No Longer Active Checo Conklin MD Active AZITHROMYCIN 250 MG ORAL TABLET 2 po qd x 1 day, then 1 po q d x 4 days AZITHROMYCIN 26800406522 No Longer Active Checo Ortiz MD Active PREDNISONE 20 MG ORAL TABLET 2 tabs daily for 3 days, 1 tab daily for 3 days, 1/2 tab daily for 2 days PREDNISONE 18984451702 No Longer Active Checo Conklin MD Active ZITHROMAX Z-KARTHIK 250 MG ORAL TABLET 2 today, then 1 daily for 4 d ays AZITHROMYCIN 24488267657 No Longer Active Paul Hamlin MD Active FOCALIN XR 10 MG ORAL CAPSULE EXTENDED RELEASE 24 HOUR 1 po q a. m. DEXMETHYLPHENIDATE HCL 55435563195 No Longer Active Paul Hamlin MD Active PERCOCET 10-325 MG ORAL TABLET 1 tablet every 6 hours as needed for pain OXYCODONE-ACETAMINOPHEN 33222770933 No Longer Active Paul Hamlin MD Active LORTAB 5-500 MG ORAL TABLET 1/2 to 1 tablet by mouth e very 4 hours as needed for pain HYDROCODONE-ACETAMINOPHEN 25387350615 No Longer Active Checo Conklin MD Active FOCALIN XR 15 MG ORAL CAPSULE EXTENDED RELEASE 24 HOUR 1 po q a. m. DEXMETHYLPHENIDATE HCL 17093595680 No Longer Active Checo Conklin MD Active ZOFRAN ODT 4 MG ORAL TABLET DISINTEGRATING 1 po q6hr PRN Nausea ONDANSETRON 93265571461 No Longer Active Checo Conklin MD Active PERCOCET 5-325 MG ORAL TABLET 1 tablet by mouth every 6 hour s as needed OXYCODONE-ACETAMINOPHEN 26737589343 No Longer Active Checo Conklin MD Active PYRIDIUM 200 MG ORAL TABLET take 1 tab po TID prn urinary pain. PHENAZOPYRIDINE HCL 75448522444 No Longer Active Checo Joshua Active FLUCONAZOLE 150 MG ORAL TABLET take 1 tab po qday once FLUCONAZOLE 57583561704 No Longer Active Dangelo Rangel MD Acti ve CIPRO 500 MG ORAL TABLET 1 tablet by mouth twice daily CIPROFLOXACIN HCL 37949276414 No Longer Active Dangelo Rangel MD Active PHENERGAN CREAM* 25mg applied to wrist q6hr PRN Nausea PHENERGAN CREAM* Inactive AMOXICILLIN 500 MG ORAL CAPSULE 2 po BID x 10 days 201 01/15/27 AMOXICILLIN 500 MG ORAL CAPSULE 794155 AMOXICILLIN Inactive ANTIPYRINE-BENZOCAINE 5.4-1.4 % OTIC SOLUTION 1-2 drops in affec yohannes ear ANTIPYRINE-BENZOCAINE 5.4-1.4 % OTIC SOLUTION 548441 BENZOCAINE-ANTIPYRINE Inactive BACTRIM DS 800-160 MG ORAL TABLET 1 tab by mouth twice daily 201 11/23/03 BACTRIM DS 800-160 MG ORAL TABLET 281729 TRIMETHOPRIM-SULFAMETHOXAZOLE Inactive BACTRIM DS 800-160 MG ORAL TABLET 1 po BID x 7 days 29/04/10 BACTRIM DS 800-160 MG ORAL TABLET 19820918 SULFAMETHOXAZOLE-TRIMETHOP RIM Inactive BACTRIM DS 800-160 MG ORAL TABLET 1 tab by mouth twice daily 201 12/19/26 BACTRIM DS 800-160 MG ORAL TABLET 839417 TRIMETHOPRIM-SULFAMETHOXAZOLE Inactive CIPRO 500 MG ORAL TABLET 1 tablet by mouth twice daily CIPRO 500 MG ORAL TABLET 589637 CIPROFLOXACIN HCL Inactive CIPRO 500 MG ORAL TABLET 1 tablet by mouth twice daily CIPRO 500 MG ORAL TABLET 954570 CIPROFLOXACIN HCL Inactive CLARITIN 10 MG ORAL TABLET 1 tablet by mouth daily as needed for allergies CLARITIN 10 MG ORAL TABLET 238214 LORATADINE I nactive FIORICET 325-50-40 MG TAB 1 tablet by mouth four times daily as needed FIORICET 325-50-40 MG TAB ACETAMINOPHEN-C AFF-BUTALBITAL Inactive FLAGYL 500 MG ORAL TABLET 1 tablet by mouth bid 04/13 FLAGYL 500 MG ORAL TABLET 068462 METRONIDAZOLE Inactive IBUPROFEN 800 MG ORAL TABLET 1 tab every 8 hours with food 03/20 IBUPROFEN 800 MG ORAL TABLET 087981 IBUPROFEN [place] ctive MAGNESIUM CITRATE 1.745 GM/30ML ORAL SOLUTION 150ml po BID P RN Constipation MAGNESIUM CITRATE 1.745 GM/30ML ORAL SOLUTION 10 15078 MAGNESIUM CITRATE Inactive METOCLOPRAMIDE HCL 10 MG ORAL TABLET take one PO tid PRN nausea METOCLOPRAMIDE HCL 10 MG ORAL TABLET 337938 METOCLOPRAM ZACH HCL Inactive PERCOCET 5-325 MG ORAL TABLET 1 tablet by mouth every 6 hour s as needed PERCOCET 5-325 MG ORAL TABLET 0448606 OXYCODONE-ACETAMINOPHEN Inactive PHENAZOPYRIDINE HCL 200 MG ORAL TABLET take 1 tab po TID for bladder pain PHENAZOPYRIDINE HCL 200 MG ORAL TABLET 1279843 PHENAZOPYRIDINE HCL Inactive PREDNISONE 20 MG ORAL TABLET 2 tabs daily for 3 days, 1 tab daily for 3 days, 1/2 tab daily for 2 days PREDNISONE 20 MG ORAL T ABLET 094403 PREDNISONE Inactive PREDNISONE 20 MG ORAL TABLET 2 tabs daily for 3 days, 1 tab daily for 3 days, 1/2 tab daily for 2 days PREDNISONE 20 MG ORAL TABLET 501796 PREDNISONE Inactive PREDNISONE 20 MG ORAL TABLET 2 tabs daily for 3 days, 1 tab daily for 3 days, 1/2 tab daily for 2 days PREDNISONE 20 MG ORAL T ABLET 451495 PREDNISONE Inactive PYRIDIUM 200 MG ORAL TABLET take 1 tab po TID prn urinary pain. PYRIDIUM 200 MG ORAL TABLET 8822745 PHENAZOPYRIDINE HCL Inactive REGLAN 10 MG ORAL TABLET 1 po TID PRN Nausea 3 REGLAN 10 MG ORAL TABLET 490729 METOCLOPRAMIDE HCL Inactive TRAZODONE HCL 100 MG ORAL TABLET 0.5 to 1 po qHS PRN Insomnia 20 30/07/08 TRAZODONE HCL 100 MG ORAL TABLET 822880 TRAZODONE HCL Inactive TRIAMCINOLONE ACETONIDE 0.1 % EXTERNAL OINTMENT Apply to affected areas TID for up to 2 weeks TRIAMCINOLONE ACETON ZACH 0.1 % EXTERNAL OINTMENT 9182223 TRIAMCINOLONE ACETONIDE Inactive LORTAB 5-500 MG ORAL TABLET 1/2 to 1 tablet by mouth e very 4 hours as needed for pain LORTAB 5-500 MG ORAL TABLET 394995 HYDROCODONE-ACETAMINOPHEN Inactive TERBINAFINE HCL 250 MG ORAL TABLET take one table PO one time da moises TERBINAFINE HCL 250 MG ORAL TABLET 412600 TERBINAFINE H CL Inactive SUMATRIPTAN SUCCINATE 100 MG ORAL TABLET Take one PRN for migran e SUMATRIPTAN SUCCINATE 100 MG ORAL TABLET 547854 SUMATRIPTAN SUCCINATE Inactive DIFLUCAN 150 MG ORAL TABLET 1 tablet by mouth if neede d, hold until symptoms start DIFLUCAN 150 MG ORAL TABLET 571405 FLUCONAZ OLE Inactive DIFLUCAN 150 MG ORAL TABLET 1 tablet by mouth qod 2015 DIFLUCAN 150 MG ORAL TABLET 269590 FLUCONAZOLE Inactive FLUCONAZOLE 150 MG ORAL TABLET take 1 tab po qday once FLUCONAZOLE 150 MG ORAL TABLET 545926 FLUCONAZOLE Inactive DICLOFENAC SODIUM 75 MG ORAL TABLET DELAYED RELEASE 1 tablet by mouth twice daily PRN Knee pain DICLOFENAC SODIUM 75 MG ORAL TABLET DELAYED RELEASE 712650 DICLOFENAC SODIUM Inactive LAMISIL 250 MG ORAL TABLET 1 po qd L AMISIL 250 MG ORAL TABLET 230125 TERBINAFINE HCL Inactive AZITHROMYCIN 250 MG ORAL TABLET 2 po qd x 1 day, then 1 po q d x 4 days AZITHROMYCIN 250 MG ORAL TABLET 700351 AZITHROMY SPARKLE Inactive AZITHROMYCIN 250 MG ORAL TABLET 2 po qd x 1 day, then 1 po q d x 4 days AZITHROMYCIN 250 MG ORAL TABLET 550553 AZITHROMY SPARKLE Inactive AZITHROMYCIN 250 MG ORAL TABLET 2 po qd x 1 day, then 1 po q d x 4 days AZITHROMYCIN 250 MG ORAL TABLET 956254 AZITHROMY SPARKLE Inactive BACTROBAN 2 % EXTERNAL CREAM Apply to affected area BID for up to 10 days BACTROBAN 2 % EXTERNAL CREAM 186212 MUPIROCIN CA LCIUM Inactive CEFDINIR 300 MG ORAL CAPSULE by mouth twice a day 2013 CEFDINIR 300 MG ORAL CAPSULE 20021020 CEFDINIR Inactive CEFDINIR 300 MG ORAL CAPSULE 1 po bid CEFDINI R 300 MG ORAL CAPSULE 20021020 CEFDINIR Inactive CELEXA 20 MG ORAL TABLET 1 tablet by mouth daily 09/26 CELEXA 20 MG ORAL TABLET 680694 CITALOPRAM HYDROBROMIDE Inactive ZOFRAN ODT 4 MG ORAL TABLET DISINTEGRATING 1 po q6hr PRN Nausea ZOFRAN ODT 4 MG ORAL TABLET DISINTEGRATING 811526 ONDAN SETRON Inactive ONDANSETRON 8 MG ORAL TABLET DISINTEGRATING place one tablet on tongue and allow to dissolve every 6 hours as needed for vomitting ONDANSETRON 8 MG ORAL TABLET DISINTEGRATING 689156 ONDANSETRON Inactive CONCERTA 18 MG ORAL TABLET EXTENDED RELEASE 1 po q a.m. CONCERTA 18 MG ORAL TABLET EXTENDED RELEASE METHYLPHENIDATE HCL Inactive COMPRO 25 MG RECTAL SUPPOSITORY insert or apply one garza ppository rectally as directed every 12 hours as needed for nausea COMPRO 25 MG RECTAL SUPPOSITORY 343278 PROCHLORPERAZINE Inactive ZITHROMAX Z-KARTHIK 250 MG ORAL TABLET 2 today, then 1 daily for 4 d ays ZITHROMAX Z-KARTHIK 250 MG ORAL TABLET 282070 AZITHROMYCIN Inactive FLONASE 50 MCG/ACT NASAL SUSPENSION 1 spray each nostril am and hs FLONASE 50 MCG/ACT NASAL SUSPENSION 6975490 FLUTICASONE PROPIONATE I nactive PERCOCET 10-325 MG ORAL TABLET 1 tablet every 6 hours as needed for pain PERCOCET 10-325 MG ORAL TABLET 5984684 OXYCODONE-ACETAMI NOPHEN Inactive HYDROCODONE-ACETAMINOPHEN 5-325 MG ORAL TABLET 1 po q 6hr PRN Pa in HYDROCODONE-ACETAMINOPHEN 5-325 MG ORAL TABLET 101631 HYDROCODONE-ACETAMINOPHEN Inactive HYDROCODONE-ACETAMINOPHEN 5-325 MG ORAL TABLET 0.5 to 1 tab by mouth every 6 hours as needed HYDROCODONE-ACETAMIN OPHEN 5-325 MG ORAL TABLET 519766 HYDROCODONE-ACETAMINOPHEN Inactive HYDROCODONE-ACETAMINOPHEN 5-325 MG ORAL TABLET 1 tab b y mouth every 6 hours as needed HYDROCODONE-ACETAMINOPHEN 5-325 MG ORAL TABLET 324764 HYDROCODONE-ACETAMINOPHEN Inactive HYDROCODONE-ACETAMINOPHEN 5-325 MG ORAL TABLET 1/2 to 1 po q 4 hours prn cough HYDROCODONE-ACETAMINOPHEN 5-325 MG ORAL TABLET 8 54139 HYDROCODONE-ACETAMINOPHEN Inactive BUPROPION HCL ER (SR) 100 [...] FLUTICASONE PROPION ATE 50 MCG/ACT NASAL SUSPENSION 7156932 FLUTICASONE PROPIONATE Inactive FOCALIN XR 15 MG ORAL CAPSULE EXTENDED RELEASE 24 HOUR 1 po q a. m. FOCALIN XR 15 MG ORAL CAPSULE EXTENDED RELEASE 24 HOUR DEXMETHYLPHENIDATE HCL Inactive TRAVEL SICKNESS 25 MG ORAL TABLET CHEWABLE chew and sw allow one tablet every 6 hours as needed TRAVEL SICKNESS 25 M G ORAL TABLET CHEWABLE 013562 MECLIZINE HCL Inactive CHANTIX STARTING MONTH KARTHIK [...] PANEL - Chemistry cholesterol, serum 192 mg/dL 400-426 8685/02/20 HDL cholesterol, serum 31 mg/dL > OR [...] 11 .0-15.0 platelet count 218 THOUSAND/UL 10*3/mm3 940-822 3721/02/20 mean platelet volume 9.7 fL 7.5-12.5 Lab Report: Comp. Metabolic Panel, Eryth rocyte Sed Rate, UADIP W/MICRO, ... - Chemistry protein, total urine random Negative mg/dL Negative sodium, serum 139 mmol/L 669-947 5771/11/28 carbon dioxide, venous blood 26.0 mmol/L 21.0-32 [...] Negative Encounters Code Encounter Date Provider Facility CPT-06751 Level 3 Est. 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 Patient 13:05:44 CDT Paul Hamlin MD [facility] CPT-70508 Level 3 Est. Patient 11:29:55 CDT Checo Conklin MD [facility] CPT-48774 Level 4 Est. Patient 11:08:12 RING MAKING MACHINE OPERATOR Checo Conklin MD [facility] CPT-29004 Level 4 Est. Patient 16:06:48 RING MAKING MACHINE OPERATOR Checo Conklin MD [facility] CPT-84037 Level 3 Est. Patient 09:11:49 CDT Efren almendarez [facility] CPT-11299 Level 2 Est. Patient 19:53:27 CDT Tanner hill MD [facility] CPT-28129 Level 3 Est. Patient 09:15:34 CDT Efren almendarez [facility] CPT-14257 Level 3 Est. 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 Patient 13:55:46 RING MAKING MACHINE OPERATOR Checo Conklin MD [facility] CPT-17968 Level 4 Est. Patient 17:10:53 CDT Checo Conklin MD [facility] CPT-59949 Level 3 Est. Patient 15:56:22 CDT Checo Conklin MD [facility] CPT-46873 Level 3 Est. Patient 15:29:07 CDT Checo Conklin MD [facility] CPT-19268 Level 3 Est. Patient 14:38:41 CDT Checo Conklin MD [facility] CPT-74343 Level 3 Est. Patient 15:22:03 RING MAKING MACHINE OPERATOR Thomas reynolds DO [facility] CPT-90781 Level 3 Est. Patient 13:34:17 RING MAKING MACHINE OPERATOR Checo Conklin MD [facility] CPT-96025 Level 3 Est. Patient 12:29:32 CDT Dangelo arroyo MD [facility] CPT-84728 Level 3 Est. Patient 16:53:02 CDT Checo Conklin MD [facility] CPT-41870 Level 3 Est. Patient 16:37:13 CDT Checo Conklin MD [facility] CPT-64154 Level 3 Est. Patient 16:16:59 CDT Paul Hamlin MD [facility] CPT-50485 Level 3 Est. Patient 14:20:13 CDT Dangelo arroyo MD [facility] CPT-74338 Level 4 Est. Patient 11:29:33 CDT Checo Conklin MD [facility] CPT-30504 Level 3 Est. Patient 17:08:31 CDT Checo Conklin MD [facility] CPT-39263 Level 3 Est. Patient 16:50:42 RING MAKING MACHINE OPERATOR Checo Conklin MD [facility] CPT-37100 Level 4 Est. Patient 09:26:08 RING MAKING MACHINE OPERATOR Checo Conklin MD [facility] CPT-63571 Level 3 Est. Patient 11:37:10 CDT Checo Conklin MD [facility] CPT-40493 Level 4 Est. Patient 14:07:38 CDT Checo Conklin MD [facility] CPT-93985 Level 3 Est. Patient 09:54:41 CDT Checo Conklin MD [facility] CPT-65685 Level 3 Est. Patient 11:10:54 CDT Paul Hamlin MD [facility] CPT-05497 Level 3 Est. Patient 14:16:56 RING MAKING MACHINE OPERATOR Checo Conklin MD [facility] CPT-09528 Level 3 Est. Patient 11:04:11 RING MAKING MACHINE OPERATOR Checo Conklin MD [facility] CPT-36198 Level 3 Est. Patient 17:09:26 CDT Dangelo arroyo MD [facility] CPT-82352 Level 3 Est. Patient 16:54:37 CDT Checo Conklin MD [facility] Procedures Code Procedure Name Date Entry Date Standard Desc ription CPT-86043 Abd compl w upright - XRAY USE ONLY 1 1:36:54 RING MAKING MACHINE OPERATOR CPT-34891 UA w micro - LAB USE ONLY 17:06:46 CDT 2015 CPT-75875 BHCG Qual - LAB USE ONLY 17:06:46 CDT 05/06 CPT-11394 CMP - LAB USE ONLY 17:06:46 CDT CPT-53988 CBC with Diff - LAB USE ONLY 17:06:45 CDT 2 CPT-30821 Venipuncture Draw Fee 17:06:45 CDT CPT-LR Lesion Removal 19:53:27 CDT CPT-OV Office Visit 11:31:28 CDT CPT-98079 Tubersol 09:39:29 CDT CPT-J2550 Phenergan 25 mg (Promethazine) 13:59:02 RING MAKING MACHINE OPERATOR CPT-J1885 Toradol 60 mg (Ketorolac) 13:59:02 RING MAKING MACHINE OPERATOR 2012
--- OUTSIDE RECORDS SUMMARY | 2019-09-29 02:17 | XMS REPORT | Clinical Summary ---
Author Author Admin, Bethany Gonzales Organization [employer] Address Unknown Phone Unavailable Allergies, Adverse Reactions, [...] vulvovaginitis, unspecified Pharyngitis 462 Active Jillina Frazell BUHR MILL OPERATOR Acute pharyngitis Cough 786.2 Active Jillina Frasandra BUHR MILL OPERATOR Cough Pedal edema 782.3 Active Jillina Frazelkenny BUHR MILL OPERATOR Edema NEOPLASM OF UNCERTAIN BEHAVIOR OF [...] tab by mouth twice daily 2 TRIMETHOPRIM-SULFAMETHOXAZOLE 43757359518 No Longer Active Tanner Carrillo MD Active DIFLUCAN 150 MG TAB 1 tablet by mouth qod FLUCO NAZOLE 22471112107 No Longer Active Efren Medel APRN Active CLARITIN 10 MG TAB 1 tablet by mouth daily as needed for allergies LORATADINE 87485563756 Active Jillina Frajoel BUHR MILL OPERATOR Active AZITHROMYCIN 250 MG TABS 2 po qd x 1 day, then 1 po qd x 4 days AZITHROMYCIN 86911240285 No Longer Active Jillina Lizy RIDDLEN Active FLAGYL 500 MG TAB 1 tablet by mouth bid METRONI DAZOLE 75078231118 No Longer Active Checo Conklin MD Active FOCALIN XR 10 MG ORAL [id number] 1 po q a.m. DEX METHYLPHENIDATE HCL 35997576005 Active Checo Conklin MD Active MAGNESIUM CITRATE 1.745 GM/30ML ORAL SOLN 150ml po BID PRN C onstipation MAGNESIUM CITRATE 80022227415 No Longer Active Checo Conklin MD Active BACTROBAN 2 % CREAM Apply to affected area BID for up to 10 days MUPIROCIN CALCIUM 72463274285 No Longer Active Checo Conklin MD Active HYDROCODONE-ACETAMINOPHEN 5-325 MG TABS 1 tab by mouth every 6 hours as needed HYDROCODONE-ACETAMINOPHEN 66504465783 No Longer Activ e Checo Conklin MD Active IBUPROFEN 800 MG TABS 1 tab every 8 hours with food 20 31/03/21 IBUPROFEN 49135528709 No Longer Active Checo Conklin MD Activ e DIFLUCAN 150 MG TAB 1 tablet by mouth if needed, hold until symptoms start FLUCONAZOLE 88149745705 No Longer Active Checo Ortiz MD Active BACTRIM DS 800-160 MG TAB 1 tab by mouth twice daily 2 TRIMETHOPRIM-SULFAMETHOXAZOLE 84549487876 No Longer Active Corry leogn LPN Active MIRALAX PACK 1 po qd PRN Constipation POLYETHYL JOEL GLYCOL 3350 83783270850 Active Checo Conklin MD Active HYDROCODONE-ACETAMINOPHEN 5-325 MG TABS 0.5 to 1 tab b y mouth every 6 hours as needed HYDROCODONE-ACETAMINOPHEN 13365098767 No Longer Active Checo Conklin MD Active ONDANSETRON [address] one tablet on tongue and allow to dissolve every 6 hours as needed for vomitting ONDANSETRO N 74447844868 No Longer Active Checo Conklin MD Active COMPRO 25 MG RECTAL SUPP insert or apply one supposit ory rectally as directed every 12 hours as needed for nausea PROCHLORPERA ZINE 77883349610 No Longer Active Checo Conklin MD Active SUMATRIPTAN SUCCINATE 100 MG ORAL TABS Take one PRN for migrane SUMATRIPTAN SUCCINATE 77163513564 No Longer Active Checo Conklin MD Active TRAVEL SICKNESS 25 MG ORAL CHEW chew and swallow one t ablet every 6 hours as needed MECLIZINE HCL 93414514858 No Longer Active Joe Conklin MD Active BUPROPION HCL ER (SR) 100 MG ORAL [id number] take one t ablet by mouth one time daily for one week then take 1 two times daily BUPROPION HCL 18063605007 No Longer Active Checo Conklin MD Activ e TERBINAFINE HCL 250 MG ORAL TABS take one table PO one time abran y TERBINAFINE HCL 43019602197 No Longer Active Checo Conklin MD Active METOCLOPRAMIDE HCL 10 MG ORAL TABS take one PO tid PRN nausea 20 29/12/14 METOCLOPRAMIDE HCL 56966173545 No Longer Active Checo Conklin MD Active DICLOFENAC SODIUM 75 MG TBEC 1 tablet by mouth twice daily P RN Knee pain DICLOFENAC SODIUM 11129742209 No Longer Active Checo Conklin MD Active LAMISIL 250 MG TAB 1 po qd TERBINAFINE HCL 548 10527600 No Longer Active Checo Conklin MD Active REGLAN 10 MG TAB 1 po TID PRN Nausea METOCLOPRA MIDE HCL 39888524618 No Longer Active Checo Conklin MD Active CELEXA 20 MG TABS 1 tablet by mouth daily CITALOPRAM HYDROBROMIDE 14052733316 No Longer Active Checo Conklin MD Activ e AZITHROMYCIN 250 MG TABS 2 po qd x 1 day, then 1 po qd x 4 days AZITHROMYCIN 83010576288 No Longer Active Checo Conklin MD Active HYDROCODONE-ACETAMINOPHEN 5-325 MG TABS 1 po q 6hr PRN Pain 2013 HYDROCODONE-ACETAMINOPHEN 57187995759 No Longer Active Lenora Conklin MD Active PHENAZOPYRIDINE HCL 200 MG TABS take 1 tab po TID for bladder pa in PHENAZOPYRIDINE HCL 71760811606 No Longer Active Checo Joshua Active CIPRO 500 MG TAB 1 tablet by mouth twice daily CIPROFLOXACIN HCL 10310206612 No Longer Active Dangelo Rangel MD Active HYDROCODONE-ACETAMINOPHEN 5-325 MG TABS 1/2 to 1 po q 4 hour s prn cough HYDROCODONE-ACETAMINOPHEN 32939920283 No Longer Activ e Dangelo Rangel MD Active BACTRIM DS 800-160 MG TABS 1 po BID x 7 days 0 SULFAMETHOXAZOLE-TRIMETHOPRIM 17418429222 No Longer Active Checo Conklin MD Active PREDNISONE 20 MG TAB 2 tabs daily for 3 days, 1 t ab daily for 3 days, 1/2 tab daily for 2 days PREDNISONE 37604593268 No Longer Active Checo Conklin MD Active TRIAMCINOLONE ACETONIDE 0.1 % OINT Apply to affected a reas TID for up to 2 weeks TRIAMCINOLONE ACETONIDE 35855306737 No Longer A ctive Checo Conklin MD Active CEFDINIR 300 MG CAPS by mouth twice a day CEFDI JAZZY 22707703271 No Longer Active Dangelo Rangel MD Active BUPROPION HCL (SMOKING DETER) 150 MG [id number] 1 a day for 1 week then 1 twice a day BUPROPION HCL (SMOKING DETER) 87890110858 No Lo nger Active Checo Conklin MD Active SIMVASTATIN 20 MG TABS 1 po qd SIMVASTATIN 3839345797 5 Active Checo Conklin MD Active CHANTIX STARTING MONTH KARTHIK 0.5 MG X 11 & 1 MG X 42 TAB S 0.5mg daily for 3 days, then 0.5mg BID for 4 days, then 1mg BID VARENICLINE TARTRATE 24289754666 No Longer Active Checo Conklin MD Activ e XANAX 0.5 MG TABS 1 po BID PRN anxiety ALPRAZOLAM 77300614117 Active Checo Conklin MD Active CONCERTA 18 MG CR-TABS 1 po q a.m. METHYLPHENID ATE HCL 50894500903 No Longer Active Checo Conklin MD Active AMBIEN 5 MG TAB 1 po qHS PRN Insomnia ZOLPIDEM TARTRATE 02388329382 Active Checo Conklin MD Active TRAZODONE HCL 100 MG TAB 0.5 to 1 po qHS PRN Insomnia TRAZODONE HCL 28444888138 No Longer Active Checo Conklin MD Acti ve FIORICET 325-50-40 MG TAB 1 tablet by mouth four times daily as needed [id number] 01869998854 No Longer Active Checo Conklin MD Active PHENERGAN CREAM* 25mg applied to wrist q6hr PRN Nausea PHENERGAN CREAM* No Longer Active Checo Conklin MD A ctive FLONASE 50 MCG/ACT SUSP 1 spray each nostril am and hs FLUTICASONE PROPIONATE 62520283256 No Longer Active Checo Conklin MD Activ e ANTIPYRINE-BENZOCAINE 5.4-1.4 % SOLN 1-2 drops in affected ear BENZOCAINE-ANTIPYRINE 13756963907 No Longer Active Checo Conklin MD Active CEFDINIR 300 MG CAPS 1 po bid CEFDINIR 35635040 120 No Longer Active Checo Conklin MD Active PREDNISONE 20 MG TAB 2 tabs daily for 3 days, 1 t ab daily for 3 days, 1/2 tab daily for 2 days PREDNISONE 56978357049 No Longer Active Aracelis Conklin MD Active AZITHROMYCIN 250 MG TABS 2 po qd x 1 day, then 1 po qd x 4 days AZITHROMYCIN 44308984410 No Longer Active Checo Conklin MD Active PREDNISONE 20 MG TAB 2 tabs daily for 3 days, 1 t ab daily for 3 days, 1/2 tab daily for 2 days PREDNISONE 84063084320 No Longer Active Checo Conklin MD Active ZITHROMAX Z-KARTHIK 250 MG TABS 2 today, then 1 daily for 4 days 201 09/18/28 AZITHROMYCIN 37755532965 No Longer Active Paul Hamlin MD Active FOCALIN XR 10 MG [id number] 1 po q a.m. D EXMETHYLPHENIDATE HCL 53064338456 No Longer Active Paul Hamlin MD Activ e PERCOCET 10-325 MG TABS 1 tablet every 6 hours as needed for pain OXYCODONE-ACETAMINOPHEN 68608515797 No Longer Active Paul Hamlin MD Active LORTAB 5 5-500 MG TABS 1/2 to 1 tablet by mouth flaquito ry 4 hours as needed for pain HYDROCODONE-ACETAMINOPHEN 05387983497 No Longer Active Checo Conklin MD Active FOCALIN XR 15 MG [id number] 1 po q a.m. D EXMETHYLPHENIDATE HCL 12268131595 No Longer Active Checo Conklin MD Activ e ZOFRAN ODT 4 MG TBDP 1 po q6hr PRN Nausea ONDAN SETRON 98871900309 No Longer Active Checo Conklin MD Active PERCOCET 5-325 MG TABS 1 tablet by mouth every 6 hours as needed OXYCODONE-ACETAMINOPHEN 30182783636 No Longer Active Checo Conklin MD Active PYRIDIUM 200 MG TABS take 1 tab po TID prn urinary pain. 0 PHENAZOPYRIDINE HCL 11541190508 No Longer Active Checo Conklin MD Active FLUCONAZOLE 150 MG TABS take 1 tab po qday once 0 04/06 FLUCONAZOLE 15204791332 No Longer Active Dangelo Rangel MD Acti ve CIPRO 500 MG TAB 1 tablet by mouth twice daily CIPROFLOXACIN HCL 37025330380 No Longer Active Dangelo Rangel MD Active PYRIDIUM 200 MG TABS take 1 tab po TID prn urinary pain. 0 PYRIDIUM 200 MG TABS 4298550 PHENAZOPYRIDINE HCL Inactive PERCOCET 5-325 MG TABS 1 tablet by mouth every 6 hours as needed PERCOCET 5-325 MG TABS 6744698 OXYCODONE-ACETAMINOPHEN I nactive ZOFRAN ODT 4 MG TBDP 1 po q6hr PRN Nausea ZOFRAN ODT 4 MG TBDP 311197 ONDANSETRON Inactive FOCALIN XR 15 MG [id number] 1 po q a.m. F OCALIN XR 15 MG [id number] DEXMETHYLPHENIDATE HCL Inactive LORTAB 5 5-500 MG TABS 1/2 to 1 tablet by mouth flaquito ry 4 hours as needed for pain LORTAB 5 5-500 MG TABS HYDROCODONE-A CETAMINOPHEN Inactive PERCOCET 10-325 MG TABS 1 tablet every 6 hours as needed for pain PERCOCET 10-325 MG TABS 6593996 OXYCODONE-ACETAMINOPHEN Inactive FOCALIN XR 10 MG [id number] 1 po q a.m. F OCALIN XR 10 MG [id number] DEXMETHYLPHENIDATE HCL Inactive CEFDINIR 300 MG CAPS 1 po bid CEFDINIR 300 MG CAPS 20 0346 CEFDINIR Inactive ANTIPYRINE-BENZOCAINE 5.4-1.4 % SOLN 1-2 drops in affected ear ANTIPYRINE-BENZOCAINE 5.4-1.4 % SOLN 668065 BENZOCAINE-ANTIPYRINE I nactive FLONASE 50 MCG/ACT SUSP 1 spray each nostril am and hs FLONASE 50 MCG/ACT SUSP 823038 FLUTICASONE PROPIONATE Inactive PHENERGAN CREAM* 25mg applied to wrist q6hr PRN Nausea PHENERGAN CREAM* Inactive FIORICET 325-50-40 MG TAB 1 tablet by mouth four times daily as needed FIORICET 325-50-40 MG TAB ACETAMINOPHEN-C AFF-BUTALBITAL Inactive TRAZODONE HCL 100 MG TAB 0.5 to 1 po qHS PRN Insomnia TRAZODONE HCL 100 MG TAB 326360 TRAZODONE HCL Inactive CONCERTA 18 MG CR-TABS [...] s prn cough HYDROCODONE-ACETAMINOPHEN 5-325 MG TABS 614499 HYDROCODONE-ACETAMINOPHEN Inactive PHENAZOPYRIDINE HCL 200 MG TABS take 1 tab po TID for bladder pa in PHENAZOPYRIDINE HCL 200 MG TABS 4136091 PHENAZOPYRIDINE HCL Inactive HYDROCODONE-ACETAMINOPHEN 5-325 MG TABS 1 po q 6hr PRN Pain 2013 HYDROCODONE-ACETAMINOPHEN 5-325 MG TABS 856982 HYDROCODONE-ACETAMINOPHEN Inactive CELEXA 20 MG TABS 1 tablet by mouth daily CELEXA 20 MG TABS 441529 CITALOPRAM HYDROBROMIDE Inactive REGLAN 10 MG TAB 1 po TID PRN Nausea REGLAN 10 MG TAB 165001 METOCLOPRAMIDE HCL Inactive LAMISIL 250 MG TAB 1 po qd LAMISIL 250 MG TAB 747219 TERBINAFINE HCL Inactive DICLOFENAC SODIUM 75 MG TBEC 1 tablet by mouth twice daily P RN Knee pain DICLOFENAC SODIUM 75 MG TBEC 432202 DICLOFENAC S ODIUM Inactive METOCLOPRAMIDE HCL 10 MG ORAL TABS take one PO tid PRN nausea 20 29/12/14 METOCLOPRAMIDE HCL 10 MG ORAL TABS 997905 METOCLOPRAMID E HCL Inactive TERBINAFINE HCL 250 MG ORAL TABS take one table PO one time abran y TERBINAFINE HCL 250 MG ORAL TABS 317014 TERBINAFINE HCL Inactive BUPROPION HCL ER (SR) 100 MG ORAL [id number] take one t ablet by mouth one time daily for one week then take 1 two times daily BUPROPION HCL ER (SR) 100 MG ORAL [id number] BUPROPION HCL Inacti ve TRAVEL SICKNESS 25 MG ORAL CHEW chew and swallow one t ablet every 6 hours as needed TRAVEL SICKNESS 25 MG ORAL CHEW 291685 MECLIZINE HCL Inactive SUMATRIPTAN SUCCINATE 100 MG ORAL TABS Take one PRN for migrane SUMATRIPTAN SUCCINATE 100 MG ORAL TABS 121673 SUMATRIPT AN SUCCINATE Inactive COMPRO 25 MG RECTAL SUPP insert or apply one supposit ory rectally as directed every 12 hours as needed for nausea COMP RO 25 MG RECTAL SUPP 141915 PROCHLORPERAZINE Inactive ONDANSETRON [address] one tablet on tongue and allow to dissolve every 6 hours as needed for vomitting ON DANSETRON 8 MG ORAL TBDP 423401 ONDANSETRON Inactive HYDROCODONE-ACETAMINOPHEN 5-325 MG TABS 0.5 to 1 tab b y mouth every 6 hours as needed HYDROCODONE-ACETAMINOPHEN 5-325 MG TABS 8 56906 HYDROCODONE-ACETAMINOPHEN Inactive BACTRIM DS 800-160 MG TAB 1 tab by mouth twice daily 2 BACTRIM DS 800-160 MG TAB 820793 TRIMETHOPRIM-SULFAMETHOXAZOLE Inac tive DIFLUCAN 150 MG TAB 1 tablet by mouth if needed, hold until symptoms start DIFLUCAN 150 MG TAB 787654 FLUCONAZOLE Inactive IBUPROFEN 800 MG TABS 1 tab every 8 hours with food 31/03/21 IBUPROFEN 800 MG TABS 341755 IBUPROFEN Inactive HYDROCODONE-ACETAMINOPHEN 5-325 MG TABS 1 tab by mouth every 6 hours as needed HYDROCODONE-ACETAMINOPHEN 5-325 MG TABS 932077 HYDROCODONE-ACETAMINOPHEN Inactive BACTROBAN 2 % CREAM Apply to affected area BID for up to 10 days BACTROBAN 2 % CREAM 353216 MUPIROCIN CALCIUM Inactive MAGNESIUM CITRATE 1.745 GM/30ML ORAL SOLN 150ml po BID PRN C onstipation MAGNESIUM CITRATE 1.745 GM/30ML ORAL SOLN 097438 0 MAGNESIUM CITRATE Inactive DIFLUCAN 150 MG TAB 1 tablet by mouth qod DIFLUCAN 150 MG TAB 532474 FLUCONAZOLE Inactive BACTRIM DS 800-160 MG TAB 1 tab by mouth twice daily 2 BACTRIM DS 800-160 MG TAB 015665 TRIMETHOPRIM-SULFAMETHOXAZOLE Inac tive CIPRO 500 MG TAB 1 tablet by mouth twice daily CIPRO 500 MG TAB 514971 CIPROFLOXACIN HCL Inactive FLUCONAZOLE 150 MG TABS take 1 tab po qday once 04/06 FLUCONAZOLE 150 MG TABS 999783 FLUCONAZOLE Inactive ZITHROMAX Z-KARTHIK 250 MG TABS 2 today, then 1 daily for 4 days 201 09/18/28 ZITHROMAX Z-KARTHIK 250 MG TABS 5082489 AZITHROMYCIN Inac tive PREDNISONE 20 MG TAB 2 tabs daily for 3 days, 1 t ab daily for 3 days, 1/2 tab daily for 2 days PREDNISONE 20 MG TAB 186288 PREDNISON E Inactive AZITHROMYCIN 250 MG TABS 2 po qd x 1 day, then 1 po qd x 4 days AZITHROMYCIN 250 MG TABS 2849589 AZITHROMYCIN Inactiv e PREDNISONE 20 MG TAB 2 tabs daily for 3 days, 1 t ab daily for 3 days, 1/2 tab daily for 2 days PREDNISONE 20 MG TAB 961760 PREDNISON E Inactive CEFDINIR 300 MG CAPS by mouth twice a day CEFDINIR 300 MG CAPS 195241 CEFDINIR Inactive TRIAMCINOLONE ACETONIDE 0.1 % OINT Apply to affected a reas TID for up to 2 weeks TRIAMCINOLONE ACETONIDE 0.1 % OINT 883079 6 TRIAMCINOLONE ACETONIDE Inactive PREDNISONE 20 MG TAB 2 tabs daily for 3 days, 1 t ab daily for 3 days, 1/2 tab daily for 2 days PREDNISONE 20 MG TAB 740514 PREDNISON E Inactive BACTRIM DS 800-160 MG TABS 1 po BID x 7 days 0 BACTRIM DS 800-160 MG TABS 097704 SULFAMETHOXAZOLE-TRIMETHOPRIM Inactive CIPRO 500 MG TAB 1 tablet by mouth twice daily CIPRO 500 MG TAB 952283 CIPROFLOXACIN HCL Inactive AZITHROMYCIN 250 MG TABS 2 po qd x 1 day, then 1 po qd x 4 days AZITHROMYCIN 250 MG TABS 1796452 AZITHROMYCIN Inactiv e FLAGYL 500 MG TAB 1 tablet by mouth bid FLAGYL 500 MG TAB 031397 METRONIDAZOLE Inactive AZITHROMYCIN 250 MG TABS 2 po qd x 1 day, then 1 po qd x 4 days AZITHROMYCIN 250 MG TABS 1984160 AZITHROMYCIN Inactiv e Immunizations Vaccine Administration Date [...] ... - Chemistry sodium, serum 141 mmol/L 462-565 9509/01/26 carbon dioxide, venous blood 30.0 mmol/L 21.0-32 .0 potassium, serum 4.0 mmol/L 3.5-5.2 chloride, serum 105 mmol/L 98-107 blood glucose 85 mg/dL 65-110 urea nitrogen, blood 9 mg/dL 7-18 creatinine, serum 0.66 mg/dL 0.55-1.30 alanine aminotransferase (SGPT), serum 31 U/L 12-78 aspartate aminotransferase (SGOT), serum 21 U/L 15-37 calcium, serum 8.2 mg/dL 8.5-10.1 bilirubin, serum, total 1.10 mg/dL 0.00-1.00 cholesterol, serum 178 mg/dL 211-482 3813/01/26 triglyceride, serum, fasting 149 mg/dL 30-200 HDL [...] ... - Chemistry sodium, serum 137 mmol/L 961-692 9613/05/27 carbon dioxide, venous blood 29.1 mmol/L 21.0-32 [...] 5.0-8.5 Encounters Code Encounter Date Provider Facility CPT-84830 Level 2 Est. Patient 19:53:27 CDT Tanner hill MD [facility] CPT-45257 Level 3 Est. Patient 09:15:34 CDT Efren almendarez [facility] CPT-28485 Level 3 Est. Patient 11:28:51 [employer]MENT [employer]TER Efren almendarez [facility] CPT-58959 Level 4 Est. 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 Patient 17:10:53 CDT Checo Conklin MD [facility] CPT-60775 Level 3 Est. Patient 15:56:22 CDT Cheoc Conklin MD [facility] CPT-29614 Level 3 Est. Patient 15:29:07 CDT Checo Conklin MD [facility] CPT-47943 Level 3 Est. Patient 14:38:41 CDT Checo Conklin MD [facility] CPT-58802 Level 3 Est. Patient 15:22:03 [employer] EQUIPMENT FITTER Thomas reynolds DO [facility] CPT-23303 Level 3 Est. Patient 13:34:17 [employer]OUND SU[employer] EQUIPMENT FITTER Checo Conklin MD [facility] CPT-35442 Level 3 Est. Patient 12:29:32 CDT Dangelo arroyo MD [facility] CPT-17120 Level 3 Est. Patient 16:53:02 CDT Checo Conklin MD [facility] CPT-21672 Level 3 Est. Patient 16:37:13 CDT Checo Conklin MD [facility] CPT-93485 Level 3 Est. Patient 16:16:59 CDT Paul Hamlin MD [facility] CPT-27602 Level 3 Est. Patient 14:20:13 CDT Dangelo arroyo MD [facility] CPT-09761 Level 4 Est. Patient 11:29:33 CDT Checo Conklin MD [facility] CPT-19690 Level 3 Est. Patient 17:08:31 CDT Checo Conklin MD [facility] CPT-94212 Level 3 Est. Patient 16:50:42 [employer] EQUIPMENT FITTER Checo Conklin MD [facility] CPT-83550 Level 4 Est. Patient 09:26:08 [employer]OUND SU[employer] EQUIPMENT FITTER Checo Conklin MD [facility] CPT-17834 Level 3 Est. Patient 11:37:10 CDT Checo Conklin MD [facility] CPT-86894 Level 4 Est. Patient 14:07:38 CDT Checo Conklin MD [facility] CPT-16900 Level 3 Est. Patient 09:54:41 CDT Checo Conklin MD [facility] CPT-64462 Level 3 Est. Patient 11:10:54 CDT Paul Hamlin MD [facility] CPT-07387 Level 3 Est. Patient 14:16:56 [employer] EQUIPMENT FITTER Checo Conklin MD [facility] CPT-96376 Level 3 Est. Patient 11:04:11 [employer] EQUIPMENT FITTER Checo Conklin MD [facility] CPT-41831 Level 3 Est. Patient 17:09:26 CDT Dangelo arroyo MD [facility] CPT-36190 Level 3 Est. Patient 16:54:37 CDT Checo Conklin MD [facility] Procedures Code Procedure Name Date Entry Date Standard Desc ription CPT-LR Lesion Removal 19:53:27 CDT CPT-OV Office Visit 11:31:28 CDT CPT-60351 Tubersol 09:39:29 CDT CPT-J2550 Phenergan 25 mg (Promethazine) 13:59:02 [employer] EQU[employer]MENT FITTER CPT-J1885 Toradol 60 mg (Ketorolac) 13:59:02 [employer] EQUIPMENT FITTER 2012
--- OUTSIDE RECORDS SUMMARY | 2019-09-29 02:18 | XMS REPORT | Clinical Summary ---
[...] out daily, for acid reflux PANTOPRAZOLE SODIUM [id number] Active Fan Méndez LPN Active FLAGYL 500 MG ORAL TABLET 1 tablet by mouth bid 08/29 METRONIDAZOLE 62571487964 Active Corry Méndez LPN Acti ve CLARITHROMYCIN 500 MG ORAL TABLET 1 tab po BID x 14 days CLARITHROMYCIN 51758622265 Active Corry Méndez LPN Act mike AMOXICILLIN 500 MG ORAL CAPSULE 2 po BID x 14 days for H. Pylori AMOXICILLIN 37810530547 Active Corry Méndez LPN Active PAROXETINE HCL 20 MG ORAL TABLET 1.5 po qd PAR OXETINE HCL 16473575830 Active Checo Conklin MD Active FLUTICASONE PROPIONATE 50 MCG/ACT NASAL SUSPENSION 2 s prays/nostril qd PRN Congestion/Allergies FLUTICASONE PROPIONATE 6310810793 9 No Longer Active Checo Conklin MD Active AMOXICILLIN 500 MG ORAL CAPSULE 2 po BID x 10 days 201 01/15/27 AMOXICILLIN 73510513266 No Longer Active Checo Conklin MD Activ e MIRALAX ORAL POWDER 8.5 to 17g po qd PRN Constipation POLYETHYLENE GLYCOL 3350 01014662232 Active Checo Conklin MD Active CLARITIN 10 MG ORAL TABLET 1 tablet by mouth daily as needed for allergies LORATADINE 20708320721 No Longer Active Checo Ortiz MD Active BACTRIM DS 800-160 MG ORAL TABLET 1 tab by mouth twice daily 201 12/19/26 TRIMETHOPRIM-SULFAMETHOXAZOLE 35466695323 No Longer Active Ragini Carrillo MD Active DIFLUCAN 150 MG ORAL TABLET 1 tablet by mouth qod 2015 FLUCONAZOLE 68230191415 No Longer Active Efren Medel [employer]WR[employer]CTIONAL TESTER Act mike AZITHROMYCIN 250 MG ORAL TABLET 2 po qd x 1 day, then 1 po q d x 4 days AZITHROMYCIN 57981492131 No Longer Active Efren flores [employer]WRIT[employer] FUNCTIONAL TESTER Active FLAGYL 500 MG ORAL TABLET 1 tablet by mouth bid 04/13 METRONIDAZOLE 21898583932 No Longer Active Checo Conklin MD Acti ve FOCALIN XR 10 MG ORAL CAPSULE EXTENDED RELEASE 24 HOUR 1 po q a.m. DEXMETHYLPHENIDATE HCL 44141087964 Active Checo Conklin MD Active MAGNESIUM CITRATE 1.745 GM/30ML ORAL SOLUTION 150ml po BID P RN Constipation MAGNESIUM CITRATE 61355778939 No Longer Active Checo Conklin MD Active BACTROBAN 2 % EXTERNAL CREAM Apply to affected area BID for up to 10 days MUPIROCIN CALCIUM 76345217435 No Longer Active Checo Conklin MD Active HYDROCODONE-ACETAMINOPHEN 5-325 MG ORAL TABLET 1 tab b y mouth every 6 hours as needed HYDROCODONE-ACETAMINOPHEN 67403799152 No Longer Active Checo Conklin MD Active IBUPROFEN 800 MG ORAL TABLET 1 tab every 8 hours with food 03/20 IBUPROFEN 58004170840 No Longer Active Checo Conklin MD Active DIFLUCAN 150 MG ORAL TABLET 1 tablet by mouth if neede d, hold until symptoms start FLUCONAZOLE 22584797942 No Longer Active Checo Conklin MD Active BACTRIM DS 800-160 MG ORAL TABLET 1 tab by mouth twice daily 201 11/23/03 TRIMETHOPRIM-SULFAMETHOXAZOLE 06961601646 No Longer Active K bernice Méndez LPN Active HYDROCODONE-ACETAMINOPHEN 5-325 MG ORAL TABLET 0.5 to 1 tab by mouth every 6 hours as needed HYDROCODONE-ACETAMINOPHEN 60636499183 No Longer Active Checo Conklin MD Active ONDANSETRON 8 MG ORAL TABLET DISINTEGRATING place one tablet on tongue and allow to dissolve every 6 hours as needed for vomitting ONDANSETRON 81075656825 No Longer Active Checo Conklin MD Activ e COMPRO 25 MG RECTAL SUPPOSITORY insert or apply one garza ppository rectally as directed every 12 hours as needed for nausea PROCHLORPERAZINE 38862242944 No Longer Active Checo Conklin MD A ctive SUMATRIPTAN SUCCINATE 100 MG ORAL TABLET Take one PRN for migran e SUMATRIPTAN SUCCINATE 93754842934 No Longer Active Checo Conklin MD Active TRAVEL SICKNESS 25 MG ORAL TABLET CHEWABLE chew and sw allow one tablet every 6 hours as needed MECLIZINE HCL 05453667495 No Longer A ctive Checo Conklin MD Active BUPROPION HCL ER (SR) 100 MG ORAL TABLET EXTENDED RELE ASE 12 HOUR take one tablet by mouth one time daily for one week then take 1 two times daily BUPROPION HCL 78348833141 No Longer Active Checo gallagher MD Active TERBINAFINE HCL 250 MG ORAL TABLET take one table PO one time da moises TERBINAFINE HCL 58939362865 No Longer Active Checo Conklin MD Active METOCLOPRAMIDE HCL 10 MG ORAL TABLET take one PO tid PRN nausea METOCLOPRAMIDE HCL 16898208508 No Longer Active Checo Conklin MD Active DICLOFENAC SODIUM 75 MG ORAL TABLET DELAYED RELEASE 1 tablet by mouth twice daily PRN Knee pain DICLOFENAC SODIUM 01334773932 No Longer Active Checo Conklin MD Active LAMISIL 250 MG ORAL TABLET 1 po qd TERBINAFI NE HCL 13812988085 No Longer Active Checo Conklin MD Active REGLAN 10 MG ORAL TABLET 1 po TID PRN Nausea 3 METOCLOPRAMIDE HCL 97039457877 No Longer Active Checo Conklin MD Active CELEXA 20 MG ORAL TABLET 1 tablet by mouth daily 09/26 CITALOPRAM HYDROBROMIDE 27230374857 No Longer Active Checo Conklin MD Active AZITHROMYCIN 250 MG ORAL TABLET 2 po qd x 1 day, then 1 po q d x 4 days AZITHROMYCIN 35615355866 No Longer Active Checo Ortiz MD Active HYDROCODONE-ACETAMINOPHEN 5-325 MG ORAL TABLET 1 po q 6hr PRN Pa in HYDROCODONE-ACETAMINOPHEN 60972700831 No Longer Active Lenora Conklin MD Active PHENAZOPYRIDINE HCL 200 MG ORAL TABLET take 1 tab po TID for bladder pain PHENAZOPYRIDINE HCL 28808988686 No Longer Active Joe Conklin MD Active CIPRO 500 MG ORAL TABLET 1 tablet by mouth twice daily CIPROFLOXACIN HCL 77335640955 No Longer Active Dangelo Rangel MD Active HYDROCODONE-ACETAMINOPHEN 5-325 MG ORAL TABLET 1/2 to 1 po q 4 hours prn cough HYDROCODONE-ACETAMINOPHEN 51597067785 No Longer Activ candy Rangel MD Active BACTRIM DS 800-160 MG ORAL TABLET 1 po BID x 7 days 29/04/10 SULFAMETHOXAZOLE-TRIMETHOPRIM 32036559139 No Longer Active Checo Conklin MD Active PREDNISONE 20 MG ORAL TABLET 2 tabs daily for 3 days, 1 tab daily for 3 days, 1/2 tab daily for 2 days PREDNISONE 89511076713 No Longer Active Checo Conklin MD Active TRIAMCINOLONE ACETONIDE 0.1 % EXTERNAL OINTMENT Apply to affected areas TID for up to 2 weeks TRIAMCINOLONE ACETONIDE 57823435818 No Longer Active Checo Conklin MD Active CEFDINIR 300 MG ORAL CAPSULE by mouth twice a day 2013 CEFDINIR 24484711717 No Longer Active Dangelo Rangel MD Acti ve BUPROPION HCL ER (SMOKING DET) 150 MG ORAL TABLET EXTE NDED RELEASE 12 HOUR 1 a day for 1 week then 1 twice a day BUPROPION HCL (SMOKING DETER) 72632419030 No Longer Active Checo Conklin MD Active SIMVASTATIN 20 MG ORAL TABLET 1 po qd SIMVASTAT IN 64928052607 Active Checo Conklin MD Active CHANTIX STARTING MONTH KARTHIK 0.5 MG X 11 & 1 MG X 42 ORA L TABLET 0.5mg daily for 3 days, then 0.5mg BID for 4 days, then 1mg BID VARENICLINE TARTRATE 20725149681 No Longer Active Checo Conklin MD Activ e XANAX 0.5 MG ORAL TABLET 1 po BID PRN anxiety A LPRAZOLAM 19926362089 Active Checo Conklin MD Active CONCERTA 18 MG ORAL TABLET EXTENDED RELEASE 1 po q a.m. METHYLPHENIDATE HCL 93064264910 No Longer Active Checo Conklin MD Active AMBIEN 5 MG ORAL TABLET 1 po qHS PRN Insomnia Z OLPIDEM TARTRATE 41775956347 Active Checo Conklin MD Active TRAZODONE HCL 100 MG ORAL TABLET 0.5 to 1 po qHS PRN Insomnia 20 30/07/08 TRAZODONE HCL 80766271628 No Longer Active Checo Conklin MD Active FIORICET 325-50-40 MG TAB 1 tablet by mouth four times daily as needed [id number] 61440127927 No Longer Active Checo Conklin MD Active PHENERGAN CREAM* 25mg applied to wrist q6hr PRN Nausea PHENERGAN CREAM* No Longer Active Checo Conklin MD A ctive FLONASE 50 MCG/ACT NASAL SUSPENSION 1 spray each nostril am and hs FLUTICASONE PROPIONATE 85214645968 No Longer Active Checo Conklin MD Active ANTIPYRINE-BENZOCAINE 5.4-1.4 % OTIC SOLUTION 1-2 drops in affec yohannes ear BENZOCAINE-ANTIPYRINE 51847836368 No Longer Active Checo Conklin MD Active CEFDINIR 300 MG ORAL CAPSULE 1 po bid CEFDINIR 30173832386 No Longer Active Checo Conklin MD Active PREDNISONE 20 MG ORAL TABLET 2 tabs daily for 3 days, 1 tab daily for 3 days, 1/2 tab daily for 2 days PREDNISONE 92054345619 No Longer Active Checo Conklin MD Active AZITHROMYCIN 250 MG ORAL TABLET 2 po qd x 1 day, then 1 po q d x 4 days AZITHROMYCIN 96104460239 No Longer Active Checo Ortiz MD Active PREDNISONE 20 MG ORAL TABLET 2 tabs daily for 3 days, 1 tab daily for 3 days, 1/2 tab daily for 2 days PREDNISONE 36608682859 No Longer Active Checo Conklin MD Active ZITHROMAX Z-KARTHIK 250 MG ORAL TABLET 2 today, then 1 daily for 4 d ays AZITHROMYCIN 89545043661 No Longer Active Paul Hamlin MD Active FOCALIN XR 10 MG ORAL CAPSULE EXTENDED RELEASE 24 HOUR 1 po q a. m. DEXMETHYLPHENIDATE HCL 80360106610 No Longer Active Paul Hamlin MD Active PERCOCET 10-325 MG ORAL TABLET 1 tablet every 6 hours as needed for pain OXYCODONE-ACETAMINOPHEN 09430990702 No Longer Active Paul Hamlin MD Active LORTAB 5-500 MG ORAL TABLET 1/2 to 1 tablet by mouth e very 4 hours as needed for pain HYDROCODONE-ACETAMINOPHEN 83534749458 No Longer Active Checo Conklin MD Active FOCALIN XR 15 MG ORAL CAPSULE EXTENDED RELEASE 24 HOUR 1 po q a. m. DEXMETHYLPHENIDATE HCL 52854018563 No Longer Active Checo Conklin MD Active ZOFRAN ODT 4 MG ORAL TABLET DISINTEGRATING 1 po q6hr PRN Nausea ONDANSETRON 54618020297 No Longer Active Checo Conklin MD Active PERCOCET 5-325 MG ORAL TABLET 1 tablet by mouth every 6 hour s as needed OXYCODONE-ACETAMINOPHEN 03309407163 No Longer Active Checo Conklin MD Active PYRIDIUM 200 MG ORAL TABLET take 1 tab po TID prn urinary pain. PHENAZOPYRIDINE HCL 95509594680 No Longer Active Checo Joshua Active FLUCONAZOLE 150 MG ORAL TABLET take 1 tab po qday once FLUCONAZOLE 45210533261 No Longer Active Dangelo Rangel MD Acti ve CIPRO 500 MG ORAL TABLET 1 tablet by mouth twice daily CIPROFLOXACIN HCL 52434947195 No Longer Active Dangelo Rangel MD Active PYRIDIUM 200 MG ORAL TABLET take 1 tab po TID prn urinary pain. PYRIDIUM 200 MG ORAL TABLET 9765232 PHENAZOPYRIDINE HCL Inactive PERCOCET 5-325 MG ORAL TABLET 1 tablet by mouth every 6 hour s as needed PERCOCET 5-325 MG ORAL TABLET 7054555 OXYCODONE-ACETAMINOPHEN Inactive ZOFRAN ODT 4 MG ORAL TABLET DISINTEGRATING 1 po q6hr PRN Nausea ZOFRAN ODT 4 MG ORAL TABLET DISINTEGRATING 377382 ONDAN SETRON Inactive FOCALIN XR 15 MG ORAL CAPSULE EXTENDED RELEASE 24 HOUR 1 po q a. m. FOCALIN XR 15 MG ORAL CAPSULE EXTENDED RELEASE 24 HOUR DEXMETHYLPHENIDATE HCL Inactive LORTAB 5-500 MG ORAL TABLET 1/2 to 1 tablet by mouth e very 4 hours as needed for pain LORTAB 5-500 MG ORAL TABLET 288519 HYDROCODONE-ACETAMINOPHEN Inactive PERCOCET 10-325 MG ORAL TABLET 1 tablet every 6 hours as needed for pain PERCOCET 10-325 MG ORAL TABLET 3099007 OXYCODONE-ACETAMI NOPHEN Inactive FOCALIN XR 10 MG ORAL CAPSULE EXTENDED RELEASE 24 HOUR 1 po q a. m. FOCALIN XR 10 MG ORAL CAPSULE EXTENDED RELEASE 24 HOUR DEXMETHYLPHENIDATE HCL Inactive CEFDINIR 300 MG ORAL CAPSULE 1 po bid CEFDINI R 300 MG ORAL CAPSULE 508753 CEFDINIR Inactive ANTIPYRINE-BENZOCAINE 5.4-1.4 % OTIC SOLUTION 1-2 drops in affec yohannes ear ANTIPYRINE-BENZOCAINE 5.4-1.4 % OTIC SOLUTION 168434 BENZOCAINE-ANTIPYRINE Inactive FLONASE 50 MCG/ACT NASAL SUSPENSION 1 spray each nostril am and hs FLONASE 50 MCG/ACT NASAL SUSPENSION 9925646 FLUTICASONE PROPIONATE I nactive PHENERGAN CREAM* 25mg applied to wrist q6hr PRN Nausea PHENERGAN CREAM* Inactive FIORICET 325-50-40 MG TAB 1 tablet by mouth four times daily as needed FIORICET 325-50-40 MG TAB ACETAMINOPHEN-C AFF-BUTALBITAL Inactive TRAZODONE HCL 100 MG ORAL TABLET 0.5 to 1 po qHS PRN Insomnia 20 30/07/08 TRAZODONE HCL 100 MG ORAL TABLET 271291 TRAZODONE HCL Inactive CONCERTA 18 MG ORAL [...] cough HYDROCODONE-ACETAMINOPHEN 5-325 MG ORAL TABLET 8 11130 HYDROCODONE-ACETAMINOPHEN Inactive PHENAZOPYRIDINE HCL 200 MG ORAL TABLET take 1 tab po TID for bladder pain PHENAZOPYRIDINE HCL 200 MG ORAL TABLET 9356268 PHENAZOPYRIDINE HCL Inactive HYDROCODONE-ACETAMINOPHEN 5-325 MG ORAL TABLET 1 po q 6hr PRN Pa in HYDROCODONE-ACETAMINOPHEN 5-325 MG ORAL TABLET 631698 HYDROCODONE-ACETAMINOPHEN Inactive CELEXA 20 MG ORAL TABLET 1 tablet by mouth daily 09/26 CELEXA 20 MG ORAL TABLET 081566 CITALOPRAM HYDROBROMIDE Inactive REGLAN 10 MG ORAL TABLET 1 po TID PRN Nausea 3 REGLAN 10 MG ORAL TABLET 732658 METOCLOPRAMIDE HCL Inactive LAMISIL 250 MG ORAL TABLET 1 po qd L AMISIL 250 MG ORAL TABLET 547991 TERBINAFINE HCL Inactive DICLOFENAC SODIUM 75 MG ORAL TABLET DELAYED RELEASE 1 tablet by mouth twice daily PRN Knee pain DICLOFENAC SODIUM 75 MG ORAL TABLET DELAYED RELEASE 606545 DICLOFENAC SODIUM Inactive METOCLOPRAMIDE HCL 10 MG ORAL TABLET take one PO tid PRN nausea METOCLOPRAMIDE HCL 10 MG ORAL TABLET 781288 METOCLOPRAM ZACH HCL Inactive TERBINAFINE HCL 250 MG ORAL TABLET take one table PO one time da moises TERBINAFINE HCL 250 MG ORAL TABLET 956050 TERBINAFINE H CL Inactive BUPROPION HCL ER [...] SICKNESS 25 M G ORAL TABLET CHEWABLE 134056 MECLIZINE HCL Inactive SUMATRIPTAN SUCCINATE 100 MG ORAL TABLET Take one PRN for migran e SUMATRIPTAN SUCCINATE 100 MG ORAL TABLET 002890 SUMATRIPTAN SUCCINATE Inactive COMPRO 25 MG RECTAL SUPPOSITORY insert or apply one garza ppository rectally as directed every 12 hours as needed for nausea COMPRO 25 MG RECTAL SUPPOSITORY 196724 PROCHLORPERAZINE Inactive ONDANSETRON 8 MG ORAL TABLET DISINTEGRATING place one tablet on tongue and allow to dissolve every 6 hours as needed for vomitting ONDANSETRON 8 MG ORAL TABLET DISINTEGRATING 851108 ONDANSETRON Inactive HYDROCODONE-ACETAMINOPHEN 5-325 MG ORAL TABLET 0.5 to 1 tab by mouth every 6 hours as needed HYDROCODONE-ACETAMIN OPHEN 5-325 MG ORAL TABLET 662418 HYDROCODONE-ACETAMINOPHEN Inactive BACTRIM DS 800-160 MG ORAL TABLET 1 tab by mouth twice daily 201 11/23/03 BACTRIM DS 800-160 MG ORAL TABLET 909227 TRIMETHOPRIM-SULFAMETHOXAZOLE Inactive DIFLUCAN 150 MG ORAL TABLET 1 tablet by mouth if neede d, hold until symptoms start DIFLUCAN 150 MG ORAL TABLET 406390 FLUCONAZ OLE Inactive IBUPROFEN 800 MG ORAL TABLET 1 tab every 8 hours with food 03/20 IBUPROFEN 800 MG ORAL TABLET 490909 IBUPROFEN [place] ctive HYDROCODONE-ACETAMINOPHEN 5-325 MG ORAL TABLET 1 tab b y mouth every 6 hours as needed HYDROCODONE-ACETAMINOPHEN 5-325 MG ORAL TABLET 981135 HYDROCODONE-ACETAMINOPHEN Inactive BACTROBAN 2 % EXTERNAL CREAM Apply to affected area BID for up to 10 days BACTROBAN 2 % EXTERNAL CREAM 683632 MUPIROCIN CA LCIUM Inactive MAGNESIUM CITRATE 1.745 GM/30ML ORAL SOLUTION 150ml po BID P RN Constipation MAGNESIUM CITRATE 1.745 GM/30ML ORAL SOLUTION 10 64389 MAGNESIUM CITRATE Inactive DIFLUCAN 150 MG ORAL TABLET 1 tablet by mouth qod 2015 DIFLUCAN 150 MG ORAL TABLET 822641 FLUCONAZOLE Inactive BACTRIM DS 800-160 MG ORAL TABLET 1 tab by mouth twice daily 201 12/19/26 BACTRIM DS 800-160 MG ORAL TABLET 163725 TRIMETHOPRIM-SULFAMETHOXAZOLE Inactive CLARITIN 10 MG ORAL TABLET 1 tablet by mouth daily as needed for allergies CLARITIN 10 MG ORAL TABLET 726180 LORATADINE I nactive FLUTICASONE PROPIONATE 50 MCG/ACT NASAL SUSPENSION 2 s prays/nostril qd PRN Congestion/Allergies FLUTICASONE PROPION ATE 50 MCG/ACT NASAL SUSPENSION 5414440 FLUTICASONE PROPIONATE Inactive CIPRO 500 MG ORAL TABLET 1 tablet by mouth twice daily CIPRO 500 MG ORAL TABLET 557995 CIPROFLOXACIN HCL Inactive FLUCONAZOLE 150 MG ORAL TABLET take 1 tab po qday once FLUCONAZOLE 150 MG ORAL TABLET 875989 FLUCONAZOLE Inactive ZITHROMAX Z-KARTHIK 250 MG ORAL TABLET 2 today, then 1 daily for 4 d ays ZITHROMAX Z-KARTHIK 250 MG ORAL TABLET 743009 AZITHROMYCIN Inactive PREDNISONE 20 MG ORAL TABLET 2 tabs daily for 3 days, 1 tab daily for 3 days, 1/2 tab daily for 2 days PREDNISONE 20 MG ORAL T ABLET 584783 PREDNISONE Inactive AZITHROMYCIN 250 MG ORAL TABLET 2 po qd x 1 day, then 1 po q d x 4 days AZITHROMYCIN 250 MG ORAL TABLET 067072 AZITHROMY SPARKLE Inactive PREDNISONE 20 MG ORAL TABLET 2 tabs daily for 3 days, 1 tab daily for 3 days, 1/2 tab daily for 2 days PREDNISONE 20 MG ORAL TABLET 333679 PREDNISONE Inactive CEFDINIR 300 MG ORAL CAPSULE by mouth twice a day 2013 CEFDINIR 300 MG ORAL CAPSULE 420907 CEFDINIR Inactive TRIAMCINOLONE ACETONIDE 0.1 % EXTERNAL OINTMENT Apply to affected areas TID for up to 2 weeks TRIAMCINOLONE ACETON ZACH 0.1 % EXTERNAL OINTMENT 1290543 TRIAMCINOLONE ACETONIDE Inactive PREDNISONE 20 MG ORAL TABLET 2 tabs daily for 3 days, 1 tab daily for 3 days, 1/2 tab daily for 2 days PREDNISONE 20 MG ORAL T ABLET 504603 PREDNISONE Inactive BACTRIM DS 800-160 MG ORAL TABLET 1 po BID x 7 days 29/04/10 BACTRIM DS 800-160 MG ORAL TABLET 178170 SULFAMETHOXAZOLE-TRIMETHOP RIM Inactive CIPRO 500 MG ORAL TABLET 1 tablet by mouth twice daily CIPRO 500 MG ORAL TABLET 471569 CIPROFLOXACIN HCL Inactive AZITHROMYCIN 250 MG ORAL TABLET 2 po qd x 1 day, then 1 po q d x 4 days AZITHROMYCIN 250 MG ORAL TABLET 128990 AZITHROMY SPARKLE Inactive FLAGYL 500 MG ORAL TABLET 1 tablet by mouth bid 04/13 FLAGYL 500 MG ORAL TABLET 536251 METRONIDAZOLE Inactive AZITHROMYCIN 250 MG ORAL TABLET 2 po qd x 1 day, then 1 po q d x 4 days AZITHROMYCIN 250 MG ORAL TABLET 218297 AZITHROMY SPARKLE Inactive AMOXICILLIN 500 MG ORAL CAPSULE 2 po BID x 10 days 201 01/15/27 AMOXICILLIN 500 MG ORAL CAPSULE 526770 AMOXICILLIN Inactive Immunizations Vaccine Administration Date Value [...] PANEL - Chemistry cholesterol, serum 192 mg/dL 580-918 3401/02/20 HDL cholesterol, serum 31 mg/dL > OR [...] 11 .0-15.0 platelet count 218 THOUSAND/UL 10*3/mm3 412-728 2090/02/20 mean platelet volume 9.7 fL 7.5-12.5 Lab Report: Comp. Metabolic Panel, Eryth rocyte Sed Rate, UADIP W/MICRO, ... - Chemistry protein, total urine random Negative mg/dL Negative sodium, serum 139 mmol/L 769-298 0933/11/28 carbon dioxide, venous blood 26.0 mmol/L 21.0-32 [...] Negative Encounters Code Encounter Date Provider Facility CPT-87170 Level 3 Est. Patient 11:24:55 ROUTE SPECIALIST Erfen almendarez [facility] [place] CPT-60875 Level 3 Est. Patient 13:05:44 CDT Paul Hamlin MD [facility] CPT-16980 Level 3 Est. Patient 11:29:55 CDT Checo Conklin MD [facility] CPT-27755 Level 4 Est. Patient 11:08:12 ROUTE SPECIALIST Checo Conklin MD [facility] CPT-96832 Level 4 Est. Patient 16:06:48 ROUTE SPECIALIST Checo Conklin MD [facility] CPT-87294 Level 3 Est. Patient 09:11:49 CDT Efren almendarez [facility] [place] CPT-81486 Level 2 Est. Patient 19:53:27 CDT Tanner hill MD [facility] CPT-86242 Level 3 Est. Patient 09:15:34 CDT Efren almendarez [facility] [place] CPT-12947 Level 3 Est. Patient 11:28:51 ROUTE SPECIALIST Efren almendarez [facility] [place] CPT-26600 Level 4 Est. Patient 13:55:46 ROUTE SPECIALIST Checo Conklin MD [facility] CPT-13552 Level 4 Est. Patient 17:10:53 CDT Checo Conklin MD [facility] CPT-42608 Level 3 Est. Patient 15:56:22 CDT Checo Conklin MD [facility] CPT-29371 Level 3 Est. Patient 15:29:07 CDT Checo Conklin MD [facility] CPT-81668 Level 3 Est. Patient 14:38:41 CDT Checo Conklin MD [facility] CPT-96613 Level 3 Est. Patient 15:22:03 ROUTE SPECIALIST Thomas reynolds DO [facility] CPT-82892 Level 3 Est. Patient 13:34:17 ROUTE SPECIALIST Checo Conklin MD [facility] CPT-88007 Level 3 Est. Patient 12:29:32 CDT Dangelo arroyo MD [facility] CPT-98036 Level 3 Est. Patient 16:53:02 CDT Checo Conklin MD [facility] CPT-40774 Level 3 Est. Patient 16:37:13 CDT Checo Conklin MD [facility] CPT-44407 Level 3 Est. Patient 16:16:59 CDT Paul Hamlin MD [facility] CPT-01916 Level 3 Est. Patient 14:20:13 CDT Dangelo arroyo MD [facility]-21185 Level 4 Est. Patient 11:29:33 CDT Checo Conklin MD [facility] CPT-26192 Level 3 Est. Patient 17:08:31 CDT Checo Conklin MD [facility] CPT-14865 Level 3 Est. Patient 16:50:42 ROUTE SPECIALIST Checo Conklin MD [facility] CPT-18350 Level 4 Est. Patient 09:26:08 ROUTE SPECIALIST Checo Conklin MD [facility] CPT-69973 Level 3 Est. Patient 11:37:10 CDT Checo Conklin MD [facility] CPT-45820 Level 4 Est. Patient 14:07:38 CDT Checo Conklin MD [facility] CPT-96945 Level 3 Est. Patient 09:54:41 CDT Checo Conklin MD [facility] CPT-34498 Level 3 Est. Patient 11:10:54 CDT Paul Hamlin MD [facility]-31976 Level 3 Est. Patient 14:16:56 ROUTE SPECIALIST Checo Conklin MD [facility]-48931 Level 3 Est. Patient 11:04:11 ROUTE SPECIALIST Checo Conklin MD [facility] CPT-85370 Level 3 Est. Patient 17:09:26 CDT Dangelo arroyo MD [facility] CPT-65447 Level 3 Est. Patient 16:54:37 CDT Checo Conklin MD [facility] Procedures Code Procedure Name Date Entry Date Standard Desc ription CPT-42892 Abd compl w upright - XRAY USE ONLY 1 1:36:54 ROUTE SPECIALIST CPT-01299 UA w micro - LAB USE ONLY 17:06:46 CDT 2015 CPT-88051 BHCG Qual - LAB USE ONLY 17:06:46 CDT 05/06 CPT-43307 CMP - LAB USE ONLY 17:06:46 CDT CPT-61603 CBC with Diff - LAB USE ONLY 17:06:45 CDT 2 CPT-56021 Venipuncture Draw Fee 17:06:45 CDT CPT-LR Lesion Removal 19:53:27 CDT CPT-OV Office Visit 11:31:28 CDT CPT-20446 Tubersol 09:39:29 CDT CPT-J2550 Phenergan 25 mg (Promethazine) 13:59:02 ROUTE SPECIALIST CPT-J1885 Toradol 60 mg (Ketorolac) 13:59:02 ROUTE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
--- OUTSIDE RECORDS SUMMARY | 2019-09-29 02:18 | XMS REPORT | Clinical Summary ---
Author Author Admin, Bethany Ayala Sunible Address Unknown Phone Unavailable Allergies, Adverse Reactions, [...] TABS 1.5 po qd PAROX ETINE HCL 40221803850 Active Checo Conklin MD Active FLUTICASONE PROPIONATE 50 MCG/ACT NASAL SUSP 2 sprays/ nostril qd PRN Congestion/Allergies FLUTICASONE PROPIONATE 9102004108 5 No Longer Active Checo Conklin MD Active AMOXICILLIN 500 MG ORAL CAPS 2 po BID x 10 days 09/12 AMOXICILLIN 01619065892 No Longer Active Checo Conklin MD Activ e MIRALAX ORAL POWD 8.5 to 17g po qd PRN Constipation POLYETHYLENE GLYCOL 3350 89204948473 Active Checo Conklin MD Active CLARITIN 10 MG TAB 1 tablet by mouth daily as needed for allergi es LORATADINE 40658530230 No Longer Active Checo Conklin MD Active BACTRIM DS 800-160 MG TAB 1 tab by mouth twice daily 2 TRIMETHOPRIM-SULFAMETHOXAZOLE 95522600740 No Longer Active Tanner Carrillo MD Active DIFLUCAN 150 MG TAB 1 tablet by mouth qod FLUCO NAZOLE 45258872702 No Longer Active Jillina Frazell 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 DEX METHYLPHENIDATE HCL 62790620210 Active Checo Conklin MD Active MAGNESIUM CITRATE 1.745 GM/30ML ORAL SOLN 150ml po BID PRN C onstipation MAGNESIUM CITRATE 33886553164 No Longer Active Checo Conklin MD Active BACTROBAN 2 % CREAM Apply to affected area BID for up to 10 days MUPIROCIN CALCIUM 54814216538 No Longer Active Checo Conklin MD Active HYDROCODONE-ACETAMINOPHEN 5-325 MG TABS 1 tab by mouth every 6 hours as needed HYDROCODONE-ACETAMINOPHEN 95475138107 No Longer Activ e Checo Conklin MD Active IBUPROFEN 800 MG TABS 1 tab every 8 hours with food 20 31/03/21 IBUPROFEN 68093838781 No Longer Active Checo Conklin MD Activ e DIFLUCAN 150 MG TAB 1 tablet by mouth if needed, hold until symptoms start FLUCONAZOLE 38670169082 No Longer Active Checo Ortiz MD Active BACTRIM DS 800-160 MG TAB 1 tab by mouth twice daily 2 TRIMETHOPRIM-SULFAMETHOXAZOLE 76627151037 No Longer Active Corry leong LPN Active HYDROCODONE-ACETAMINOPHEN 5-325 MG TABS 0.5 to 1 tab b y mouth every 6 hours as needed HYDROCODONE-ACETAMINOPHEN 15450257161 No Longer Active Checo Conklin MD Active ONDANSETRON [address] one tablet on tongue and allow to dissolve every 6 hours as needed for vomitting ONDANSETRO N 90028624253 No Longer Active Checo Conklin MD Active COMPRO 25 MG RECTAL SUPP insert or apply one supposit ory rectally as directed every 12 hours as needed for nausea PROCHLORPERA ZINE 76572153518 No Longer Active Checo Conklin MD Active SUMATRIPTAN SUCCINATE 100 MG ORAL TABS Take one PRN for migrane SUMATRIPTAN SUCCINATE 52810177180 No Longer Active Checo Conklin MD Active TRAVEL SICKNESS 25 MG ORAL CHEW chew and swallow one t ablet every 6 hours as needed MECLIZINE HCL 39466570636 No Longer Active Joe Conklin MD Active BUPROPION HCL ER (SR) 100 MG ORAL [id number] take one t ablet by mouth one time daily for one week then take 1 two times daily BUPROPION HCL 88174989418 No Longer Active Checo Conklin MD Activ e TERBINAFINE HCL 250 MG ORAL TABS take one table PO one time abran y TERBINAFINE HCL 24889809175 No Longer Active Checo Conklin MD Active METOCLOPRAMIDE HCL 10 MG ORAL TABS take one PO tid PRN nausea 20 29/12/14 METOCLOPRAMIDE HCL 00359662916 No Longer Active Checo Conklin MD Active DICLOFENAC SODIUM 75 MG TBEC 1 tablet by mouth twice daily P RN Knee pain DICLOFENAC SODIUM 88655169579 No Longer Active Checo Conklin MD Active LAMISIL 250 MG TAB 1 po qd TERBINAFINE HCL 548 58391353 No Longer Active Checo Conklin MD Active REGLAN 10 MG TAB 1 po TID PRN Nausea METOCLOPRA MIDE HCL 07749083016 No Longer Active Checo Conklin MD Active CELEXA 20 MG TABS 1 tablet by mouth daily CITALOPRAM HYDROBROMIDE 18721879243 No Longer Active Checo Conklin MD Activ e AZITHROMYCIN 250 MG TABS 2 po qd x 1 day, then 1 po qd x 4 days AZITHROMYCIN 58352598800 No Longer Active Checo Conklin MD Active HYDROCODONE-ACETAMINOPHEN 5-325 MG TABS 1 po q 6hr PRN Pain 2013 HYDROCODONE-ACETAMINOPHEN 35471200842 No Longer Active Lenora Conklin MD Active PHENAZOPYRIDINE HCL 200 MG TABS take 1 tab po TID for bladder pa in PHENAZOPYRIDINE HCL 51813207771 No Longer Active Checo Joshua Active CIPRO 500 MG TAB 1 tablet by mouth twice daily CIPROFLOXACIN HCL 78197928474 No Longer Active Dangelo Rangel MD Active HYDROCODONE-ACETAMINOPHEN 5-325 MG TABS 1/2 to 1 po q 4 hour s prn cough HYDROCODONE-ACETAMINOPHEN 45236001385 No Longer Activ e Dangelo Rangel MD Active BACTRIM DS 800-160 MG TABS 1 po BID x 7 days 0 SULFAMETHOXAZOLE-TRIMETHOPRIM 96038126138 No Longer Active Checo Conklin MD Active PREDNISONE 20 MG TAB 2 tabs daily for 3 days, 1 t ab daily for 3 days, 1/2 tab daily for 2 days PREDNISONE 82751179615 No Longer Active Checo Conklin MD Active TRIAMCINOLONE ACETONIDE 0.1 % OINT Apply to affected a reas TID for up to 2 weeks TRIAMCINOLONE ACETONIDE 84184358471 No Longer A ctive Checo Conklin MD Active CEFDINIR 300 MG CAPS by mouth twice a day CEFDI JAZZY 37919842188 No Longer Active Dangelo Rangel MD Active BUPROPION HCL (SMOKING DETER) 150 MG [id number] 1 a day for 1 week then 1 twice a day BUPROPION HCL (SMOKING DETER) 61983519337 No Lo nger Active Checo Conklin MD Active SIMVASTATIN 20 MG TABS 1 po qd SIMVASTATIN 9331883838 5 Active Checo Conklin MD Active CHANTIX STARTING MONTH KARTHIK 0.5 MG X 11 & 1 MG X 42 TAB S 0.5mg daily for 3 days, then 0.5mg BID for 4 days, then 1mg BID VARENICLINE TARTRATE 97605670793 No Longer Active Checo Conklin MD Activ e XANAX 0.5 MG TABS 1 po BID PRN anxiety ALPRAZOLAM 88775574773 Active Checo Conklin MD Active CONCERTA 18 MG CR-TABS 1 po q a.m. METHYLPHENID ATE HCL 68181688438 No Longer Active Checo Conklin MD Active AMBIEN 5 MG TAB 1 po qHS PRN Insomnia ZOLPIDEM TARTRATE 53101320920 Active Checo Conklin MD Active TRAZODONE HCL 100 MG TAB 0.5 to 1 po qHS PRN Insomnia TRAZODONE HCL 35739412405 No Longer Active Checo Conklin MD Acti ve FIORICET 325-50-40 MG TAB 1 tablet by mouth four times daily as needed [id number] 35752835254 No Longer Active Checo Conklin MD Active PHENERGAN CREAM* 25mg applied to wrist q6hr PRN Nausea PHENERGAN CREAM* No Longer Active Checo Conklin MD A ctive FLONASE 50 MCG/ACT SUSP 1 spray each nostril am and hs FLUTICASONE PROPIONATE 59142695921 No Longer Active Checo Simms e ANTIPYRINE-BENZOCAINE 5.4-1.4 % SOLN 1-2 drops in affected ear BENZOCAINE-ANTIPYRINE 53136589931 No Longer Active Checo Conklin MD Active CEFDINIR 300 MG CAPS 1 po bid CEFDINIR 69329496 120 No Longer Active Checo Conklin MD Active PREDNISONE 20 MG TAB 2 tabs daily for 3 days, 1 t ab daily for 3 days, 1/2 tab daily for 2 days PREDNISONE 11472720776 No Longer Active Aracelis Conklin MD Active AZITHROMYCIN 250 MG TABS 2 po qd x 1 day, then 1 po qd x 4 days AZITHROMYCIN 15340303601 No Longer Active Checo Conklin MD Active PREDNISONE 20 MG TAB 2 tabs daily for 3 days, 1 t ab daily for 3 days, 1/2 tab daily for 2 days PREDNISONE 25411085115 No Longer Active Checo Conklin MD Active ZITHROMAX Z-KARTHIK 250 MG TABS 2 today, then 1 daily for 4 days 201 09/18/28 AZITHROMYCIN 60289534995 No Longer Active Paul Hamlin MD Active FOCALIN XR 10 MG [id number] 1 po q a.m. D EXMETHYLPHENIDATE HCL 26439869640 No Longer Active Paul Hamlin MD Activ e PERCOCET 10-325 MG TABS 1 tablet every 6 hours as needed for pain OXYCODONE-ACETAMINOPHEN 43917715754 No Longer Active Paul Hamlin MD Active LORTAB 5 5-500 MG TABS 1/2 to 1 tablet by mouth flaquito ry 4 hours as needed for pain HYDROCODONE-ACETAMINOPHEN 73250189165 No Longer Active Checo Conklin MD Active FOCALIN XR 15 MG [id number] 1 po q a.m. D EXMETHYLPHENIDATE HCL 74565755440 No Longer Active Checo Conklin MD Activ e ZOFRAN ODT 4 MG TBDP 1 po q6hr PRN Nausea ONDAN SETRON 52765951545 No Longer Active Checo Conklin MD Active PERCOCET 5-325 MG TABS 1 tablet by mouth every 6 hours as needed OXYCODONE-ACETAMINOPHEN 86524268640 No Longer Active Checo Conklin MD Active PYRIDIUM 200 MG TABS take 1 tab po TID prn urinary pain. 0 PHENAZOPYRIDINE HCL 41911690734 No Longer Active Checo Conklin MD Active FLUCONAZOLE 150 MG TABS take 1 tab po qday once 04/06 FLUCONAZOLE 64528308502 No Longer Active Dangelo Rangel MD Acti ve CIPRO 500 MG TAB 1 tablet by mouth twice daily CIPROFLOXACIN HCL 36366399075 No Longer Active Dangelo Rangel MD Active PYRIDIUM 200 MG TABS take 1 tab po TID prn urinary pain. 0 PYRIDIUM 200 MG TABS 8248813 PHENAZOPYRIDINE HCL Inactive PERCOCET 5-325 MG TABS 1 tablet by mouth every 6 hours as needed PERCOCET 5-325 MG TABS 2624646 OXYCODONE-ACETAMINOPHEN I nactive ZOFRAN ODT 4 MG TBDP 1 po q6hr PRN Nausea ZOFRAN ODT 4 MG TBDP 173908 ONDANSETRON Inactive FOCALIN XR 15 MG [id number] 1 po q a.m. F OCALIN XR 15 MG [id number] DEXMETHYLPHENIDATE HCL Inactive LORTAB 5 5-500 MG TABS 1/2 to 1 tablet by mouth flaquito ry 4 hours as needed for pain LORTAB 5 5-500 MG TABS HYDROCODONE-A CETAMINOPHEN Inactive PERCOCET 10-325 MG TABS 1 tablet every 6 hours as needed for pain PERCOCET 10-325 MG TABS 7288788 OXYCODONE-ACETAMINOPHEN Inactive FOCALIN XR 10 MG [id number] 1 po q a.m. F OCALIN XR 10 MG [id number] DEXMETHYLPHENIDATE HCL Inactive CEFDINIR 300 MG CAPS 1 po bid CEFDINIR 300 MG CAPS 20 0346 CEFDINIR Inactive ANTIPYRINE-BENZOCAINE 5.4-1.4 % SOLN 1-2 drops in affected ear ANTIPYRINE-BENZOCAINE 5.4-1.4 % SOLN BENZOCAINE-ANTIPYRINE I nactive FLONASE 50 MCG/ACT SUSP 1 spray each nostril am and hs FLONASE 50 MCG/ACT SUSP 6620329 FLUTICASONE PROPIONATE Inactive PHENERGAN CREAM* 25mg applied to wrist q6hr PRN Nausea PHENERGAN CREAM* Inactive FIORICET 325-50-40 MG TAB 1 tablet by mouth four times daily as needed FIORICET 325-50-40 MG TAB ACETAMINOPHEN-C AFF-BUTALBITAL Inactive TRAZODONE HCL 100 MG TAB 0.5 to 1 po qHS PRN Insomnia TRAZODONE HCL 100 MG TAB 568182 TRAZODONE HCL Inactive CONCERTA 18 MG CR-TABS [...] s prn cough HYDROCODONE-ACETAMINOPHEN 5-325 MG TABS 390257 HYDROCODONE-ACETAMINOPHEN Inactive PHENAZOPYRIDINE HCL 200 MG TABS take 1 tab po TID for bladder pa in PHENAZOPYRIDINE HCL 200 MG TABS 5460999 PHENAZOPYRIDINE HCL Inactive HYDROCODONE-ACETAMINOPHEN 5-325 MG TABS 1 po q 6hr PRN Pain 2013 HYDROCODONE-ACETAMINOPHEN 5-325 MG TABS 793072 HYDROCODONE-ACETAMINOPHEN Inactive CELEXA 20 MG TABS 1 tablet by mouth daily CELEXA 20 MG TABS 598280 CITALOPRAM HYDROBROMIDE Inactive REGLAN 10 MG TAB 1 po TID PRN Nausea REGLAN 10 MG TAB 574208 METOCLOPRAMIDE HCL Inactive LAMISIL 250 MG TAB 1 po qd LAMISIL 250 MG TAB 597076 TERBINAFINE HCL Inactive DICLOFENAC SODIUM 75 MG TBEC 1 tablet by mouth twice daily P RN Knee pain DICLOFENAC SODIUM 75 MG TBEC 374693 DICLOFENAC S ODIUM Inactive METOCLOPRAMIDE HCL 10 MG ORAL TABS take one PO tid PRN nausea 20 29/12/14 METOCLOPRAMIDE HCL 10 MG ORAL TABS 018541 METOCLOPRAMID E HCL Inactive TERBINAFINE HCL 250 MG ORAL TABS take one table PO one time abran y TERBINAFINE HCL 250 MG ORAL TABS 951623 TERBINAFINE HCL Inactive BUPROPION HCL ER (SR) 100 MG ORAL [id number] take one t ablet by mouth one time daily for one week then take 1 two times daily BUPROPION HCL ER (SR) 100 MG ORAL [id number] BUPROPION HCL Inacti ve TRAVEL SICKNESS 25 MG ORAL CHEW chew and swallow one t ablet every 6 hours as needed TRAVEL SICKNESS 25 MG ORAL CHEW 800874 MECLIZINE HCL Inactive SUMATRIPTAN SUCCINATE 100 MG ORAL TABS Take one PRN for migrane SUMATRIPTAN SUCCINATE 100 MG ORAL TABS 578369 SUMATRIPT AN SUCCINATE Inactive COMPRO 25 MG RECTAL SUPP insert or apply one supposit ory rectally as directed every 12 hours as needed for nausea COMP RO 25 MG RECTAL SUPP 595979 PROCHLORPERAZINE Inactive ONDANSETRON [address] one tablet on tongue and allow to dissolve every 6 hours as needed for vomitting ON DANSETRON 8 MG ORAL TBDP 823491 ONDANSETRON Inactive HYDROCODONE-ACETAMINOPHEN 5-325 MG TABS 0.5 to 1 tab b y mouth every 6 hours as needed HYDROCODONE-ACETAMINOPHEN 5-325 MG TABS 8 97089 HYDROCODONE-ACETAMINOPHEN Inactive BACTRIM DS 800-160 MG TAB 1 tab by mouth twice daily 2 BACTRIM DS 800-160 MG TAB 447610 TRIMETHOPRIM-SULFAMETHOXAZOLE Inac tive DIFLUCAN 150 MG TAB 1 tablet by mouth if needed, hold until symptoms start DIFLUCAN 150 MG TAB 19760325 FLUCONAZOLE Inactive IBUPROFEN 800 MG TABS 1 tab every 8 hours with food 31/03/21 IBUPROFEN 800 MG TABS 133425 IBUPROFEN Inactive HYDROCODONE-ACETAMINOPHEN 5-325 MG TABS 1 tab by mouth every 6 hours as needed HYDROCODONE-ACETAMINOPHEN 5-325 MG TABS 863422 HYDROCODONE-ACETAMINOPHEN Inactive BACTROBAN 2 % CREAM Apply to affected area BID for up to 10 days BACTROBAN 2 % CREAM 698154 MUPIROCIN CALCIUM Inactive MAGNESIUM CITRATE 1.745 GM/30ML ORAL SOLN 150ml po BID PRN C onstipation MAGNESIUM CITRATE 1.745 GM/30ML ORAL SOLN 145785 0 MAGNESIUM CITRATE Inactive DIFLUCAN 150 MG TAB 1 tablet by mouth qod DIFLUCAN 150 MG TAB 350842 FLUCONAZOLE Inactive BACTRIM DS 800-160 MG TAB 1 tab by mouth twice daily 2 BACTRIM DS 800-160 MG TAB 196164 TRIMETHOPRIM-SULFAMETHOXAZOLE Inac tive CLARITIN 10 MG TAB 1 tablet by mouth daily as needed for allergi es CLARITIN 10 MG TAB 960179 LORATADINE Inactive FLUTICASONE PROPIONATE 50 MCG/ACT NASAL SUSP 2 sprays/ nostril qd PRN Congestion/Allergies FLUTICASONE PROPION ATE 50 MCG/ACT NASAL SUSP 2341438 FLUTICASONE PROPIONATE Inactive CIPRO 500 MG TAB 1 tablet by mouth twice daily CIPRO 500 MG TAB 396428 CIPROFLOXACIN HCL Inactive FLUCONAZOLE 150 MG TABS take 1 tab po qday once 04/06 FLUCONAZOLE 150 MG TABS 479515 FLUCONAZOLE Inactive ZITHROMAX Z-KARTHIK 250 MG TABS 2 today, then 1 daily for 4 days 201 09/18/28 ZITHROMAX Z-KARTHIK 250 MG TABS 2148253 AZITHROMYCIN Inac tive PREDNISONE 20 MG TAB 2 tabs daily for 3 days, 1 t ab daily for 3 days, 1/2 tab daily for 2 days PREDNISONE 20 MG TAB 441896 PREDNISON E Inactive AZITHROMYCIN 250 MG TABS 2 po qd x 1 day, then 1 po qd x 4 days AZITHROMYCIN 250 MG TABS 8662256 AZITHROMYCIN Inactiv e PREDNISONE 20 MG TAB 2 tabs daily for 3 days, 1 t ab daily for 3 days, 1/2 tab daily for 2 days PREDNISONE 20 MG TAB 223316 PREDNISON E Inactive CEFDINIR 300 MG CAPS by mouth twice a day CEFDINIR 300 MG CAPS 854129 CEFDINIR Inactive TRIAMCINOLONE ACETONIDE 0.1 % OINT Apply to affected a reas TID for up to 2 weeks TRIAMCINOLONE ACETONIDE 0.1 % OINT 476734 6 TRIAMCINOLONE ACETONIDE Inactive PREDNISONE 20 MG TAB 2 tabs daily for 3 days, 1 t ab daily for 3 days, 1/2 tab daily for 2 days PREDNISONE 20 MG TAB 909120 PREDNISON E Inactive BACTRIM DS 800-160 MG TABS 1 po BID x 7 days 0 BACTRIM DS 800-160 MG TABS 221271 SULFAMETHOXAZOLE-TRIMETHOPRIM Inactive CIPRO 500 MG TAB 1 tablet by mouth twice daily CIPRO 500 MG TAB 952389 CIPROFLOXACIN HCL Inactive AZITHROMYCIN 250 MG TABS 2 po qd x 1 day, then 1 po qd x 4 days AZITHROMYCIN 250 MG TABS 1771236 AZITHROMYCIN Inactiv e FLAGYL 500 MG TAB 1 tablet by mouth bid FLAGYL 500 MG TAB 638328 METRONIDAZOLE Inactive AZITHROMYCIN 250 MG TABS 2 po qd x 1 day, then 1 po qd x 4 days AZITHROMYCIN 250 MG TABS 7404652 AZITHROMYCIN Inactiv e AMOXICILLIN 500 MG ORAL CAPS 2 po BID x 10 days 09/12 AMOXICILLIN 500 MG ORAL CAPS 303373 AMOXICILLIN Inactive Immunizations Vaccine Administration Date Value [...] HOBART - Chemistry sodium, serum 139 mmol/L 298-305 0739/10/21 carbon dioxide, venous blood 33.5 mmol/L 21.0-32 [...] PANEL - Chemistry cholesterol, serum 192 mg/dL 225-873 2213/02/20 HDL cholesterol, serum 31 mg/dL > OR [...] 11 .0-15.0 platelet count 218 THOUSAND/UL 10*3/mm3 632-848 4692/02/20 mean platelet volume 9.7 fL 7.5-12.5 Lab Report: Chlamydia/GC [facility]/[id number] - Lab chlamydia DNA probe NOT DETECTED NOT DETECTED Lab Report: Chlamydia/GC [facility]/[id number] - Microbiology Neisseria gonorrhoeae DNA probe NOT [...] 5.0-8.5 Encounters Code Encounter Date Provider Facility CPT-14265 Level 3 Est. Patient 11:29:55 CDT Checo Conklin MD [facility]-38268 Level 4 Est. Patient 11:08:12 [employer] SUPERVISOR Checo Conklin MD [facility]-17065 Level 4 Est. Patient 16:06:48 [employer] SUPERVISOR Checo Conklin MD [facility]-83148 Level 3 Est. Patient 09:11:49 CDT Efren almendarez [facility]-38732 Level 2 Est. Patient 19:53:27 CDT Tanner hill MD [facility]-43677 Level 3 Est. Patient 09:15:34 CDT Efren almendarez [facility]-65661 Level 3 Est. Patient 11:28:51 [employer] CLAIM[employer] SUPERVISOR Efren almendarez [facility]-30624 Level 4 Est. Patient 13:55:46 [employer] CLAIM[employer] SUPERVISOR Checo Conklin MD [facility] CPT-53941 Level 4 Est. Patient 17:10:53 CDT Checo Conklin MD [facility] CPT-27637 Level 3 Est. Patient 15:56:22 CDT Checo Conklin MD [facility] CPT-10231 Level 3 Est. Patient 15:29:07 CDT Checo Conklin MD [facility] CPT-78894 Level 3 Est. Patient 14:38:41 CDT Checo Conklin MD [facility] CPT-46677 Level 3 Est. Patient 15:22:03 [employer] CLAIM[employer] SUPERVISOR Thomas reynolds DO [facility] CPT-51169 Level 3 Est. Patient 13:34:17 [employer] CLAIM[employer] SUPERVISOR Checo Conklin MD [facility] CPT-77262 Level 3 Est. Patient 12:29:32 CDT Dangelo arroyo MD [facility] CPT-48672 Level 3 Est. Patient 16:53:02 CDT Checo Conklin MD [facility] CPT-51000 Level 3 Est. Patient 16:37:13 CDT Checo Conklin MD [facility] CPT-68488 Level 3 Est. Patient 16:16:59 CDT Paul Hamlin MD [facility] CPT-96199 Level 3 Est. Patient 14:20:13 CDT Dangelo arroyo MD [facility] CPT-01874 Level 4 Est. Patient 11:29:33 CDT Checo Conklin MD [facility] CPT-80221 Level 3 Est. Patient 17:08:31 CDT Checo Conklin MD [facility] CPT-08433 Level 3 Est. Patient 16:50:42 [employer] CLAIM[employer] SUPERVISOR Checo Conklin MD [facility] CPT-27118 Level 4 Est. Patient 09:26:08 [employer] CLAIMS SUPERVISOR Checo Conklin MD [facility] CPT-96149 Level 3 Est. Patient 11:37:10 CDT Checo Conklin MD [facility] CPT-82433 Level 4 Est. Patient 14:07:38 CDT Checo Conklin MD [facility] CPT-47156 Level 3 Est. Patient 09:54:41 CDT Checo Conklin MD [facility] CPT-14900 Level 3 Est. Patient 11:10:54 CDT Paul Hamlin MD [facility] CPT-62211 Level 3 Est. Patient 14:16:56 [employer] CLAIMS SUPERVISOR Checo Conklin MD [facility] CPT-87555 Level 3 Est. Patient 11:04:11 [employer] CLAIMS SUPERVISOR Checo Conklin MD [facility] CPT-57156 Level 3 Est. Patient 17:09:26 CDT Dangelo arroyo MD [facility] CPT-70775 Level 3 Est. Patient 16:54:37 CDT Checo Conklin MD [facility] Procedures Code Procedure Name Date Entry Date Standard Desc ription CPT-33838 UA w micro - LAB USE ONLY 17:06:46 CDT 2015 CPT-63417 BHCG Qual - LAB USE ONLY 17:06:46 CDT 05/06 CPT-18781 CMP - LAB USE ONLY 17:06:46 CDT CPT-66350 CBC with Diff - LAB USE ONLY 17:06:45 CDT 2 CPT-39860 Venipuncture Draw Fee 17:06:45 CDT CPT-LR Lesion Removal 19:53:27 CDT CPT-OV Office Visit 11:31:28 CDT CPT-01743 Tubersol 09:39:29 CDT CPT-J2550 Phenergan 25 mg (Promethazine) 13:59:02 [employer] CLAIMS SUPERVISOR CPT-J1885 Toradol 60 mg (Ketorolac) 13:59:02 [employer] CLAIMS SUPERVISOR 2012
--- OUTSIDE RECORDS SUMMARY | 2019-09-29 02:18 | XMS REPORT | Clinical Summary ---
Author Author Admin, Bethany Gonzales Organization [employer] Address Unknown Phone Unavailable Allergies, Adverse Reactions, [...] MD Dizziness and giddiness Constipation 564.00 Active Cheoc Conklin MD Constipation, unspecified Abscess, skin 682.9 [...] ABDOMINAL PAIN RIGHT LOWER QUADRANT ICD-789.03 Inactive hCeco Conklin MD HEADACHE, TENSION ICD-307.81 Ozzy Conklin MD OTITIS MEDIA-RIGHT ICD-382.9 Inactive Checo Conklin MD Hypoglycemia, unspecified ICD-251.2 Inactive Checo Conklin MD Insomnia ICD-780.52 Inactive Checo Joshua Breast mass, right ICD-611.72 Ozzy Conklin MD Onychomycosis, toenails ICD-110.1 Inactive Aracelis Conklin MD PHARYNGITIS ICD-462 Inactive Checo Conklin MD Insect bite ICD-919.4 [...] Inactive Checo Joshua Sinusitis ICD-461.9 Inactive Checo Conklni MD Pedal edema ICD-782.3 Inactive Checo Conklin MD 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 Checo Conklin MD Abdominal pain, generalized ICD-789.07 Inactive Checo Conklin MD Urinary frequency ICD-788.41 Inactive Checo Conklin MD Pharyngitis ICD-462 Inactive Checo Conklin MD Repeated falls ICD-781.99 Inactive Checo ngo MD Abdominal pain, generalized ICD-789.07 Inactive Checo Conklin MD Nausea ICD-787.02 Inactive Checo Conklin MD 201 02/15/12 Cough ICD-786.2 Inactive Checo Conklin MD 2016 Sinusitis, acute ICD-461.9 Inactive Checo Ortiz MD Medication List Medication Instructions Start Date Stop Date Generic Name NDC Status Provider Patient Instruction PAROXETINE HCL 40 MG ORAL TABLET 1 po qd PAR OXETINE HCL [id number] Active Checo Conklin MD Active MIRALAX ORAL POWDER 8.5 to 17g po qd PRN Constipation POLYETHYLENE GLYCOL 3350 41387560635 No Longer Active Checo Conklin MD Active PROTONIX 40 MG ORAL TABLET DELAYED RELEASE 1 pill by m outh daily, for acid reflux PANTOPRAZOLE SODIUM 56320232539 No Longer Activ e Corry Méndez LPN Active FLAGYL 500 MG ORAL TABLET 1 tablet by mouth bid 08/29 METRONIDAZOLE 38757456698 No Longer Active Corry Méndez LPN Active CLARITHROMYCIN 500 MG ORAL TABLET 1 tab po BID x 14 days CLARITHROMYCIN 41212235437 No Longer Active Corry Méndez LPN Active AMOXICILLIN 500 MG ORAL CAPSULE 2 po BID x 14 days for H. Pylori AMOXICILLIN 44252639588 No Longer Active Corry Méndez LPN Active FLUTICASONE PROPIONATE 50 MCG/ACT NASAL SUSPENSION 2 s prays/nostril qd PRN Congestion/Allergies FLUTICASONE PROPIONATE 9325658572 9 No Longer Active Checo Conklin MD Active AMOXICILLIN 500 MG ORAL CAPSULE 2 po BID x 10 days 201 01/15/27 AMOXICILLIN 90455527968 No Longer Active Checo Conklin MD Activ e CLARITIN 10 MG ORAL TABLET 1 tablet by mouth daily as needed for allergies LORATADINE 22538728028 No Longer Active Checo Ortiz MD Active BACTRIM DS 800-160 MG ORAL TABLET 1 tab by mouth twice daily 201 12/19/26 TRIMETHOPRIM-SULFAMETHOXAZOLE 12842191023 No Longer Active Ragini Carrillo MD Active DIFLUCAN 150 MG ORAL TABLET 1 tablet by mouth qod 2015 FLUCONAZOLE 66576880548 No Longer Active Efren Medel APRN Act mike AZITHROMYCIN 250 MG ORAL TABLET 2 po qd x 1 day, then 1 po q d x 4 days AZITHROMYCIN 01890133937 No Longer Active Efren flores APRN Active FLAGYL 500 MG ORAL TABLET 1 tablet by mouth bid 04/13 METRONIDAZOLE 91945400204 No Longer Active Checo Conklin MD Acti ve FOCALIN XR 10 MG ORAL CAPSULE EXTENDED RELEASE 24 HOUR 1 po q a.m. DEXMETHYLPHENIDATE HCL 89617453407 Active Checo Conklin MD Active MAGNESIUM CITRATE 1.745 GM/30ML ORAL SOLUTION 150ml po BID P RN Constipation MAGNESIUM CITRATE 39496157552 No Longer Active Checo Conklin MD Active BACTROBAN 2 % EXTERNAL CREAM Apply to affected area BID for up to 10 days MUPIROCIN CALCIUM 57444027177 No Longer Active Checo oCnklin MD Active HYDROCODONE-ACETAMINOPHEN 5-325 MG ORAL TABLET 1 tab b y mouth every 6 hours as needed HYDROCODONE-ACETAMINOPHEN 16967186937 No Longer Active Chceo Conklin MD Active IBUPROFEN 800 MG ORAL TABLET 1 tab every 8 hours with food 03/20 IBUPROFEN 03069264361 No Longer Active Checo Conklin MD Active DIFLUCAN 150 MG ORAL TABLET 1 tablet by mouth if neede d, hold until symptoms start FLUCONAZOLE 95844965584 No Longer Active Checo Conklin MD Active BACTRIM DS 800-160 MG ORAL TABLET 1 tab by mouth twice daily 201 11/23/03 TRIMETHOPRIM-SULFAMETHOXAZOLE 81027671773 No Longer Active K bernice Méndez, QUOTATION CLERK Active HYDROCODONE-ACETAMINOPHEN 5-325 MG ORAL TABLET 0.5 to 1 tab by mouth every 6 hours as needed HYDROCODONE-ACETAMINOPHEN 65357324074 No Longer Active Checo Conklin MD Active ONDANSETRON 8 MG ORAL TABLET DISINTEGRATING place one tablet on tongue and allow to dissolve every 6 hours as needed for vomitting ONDANSETRON 67210968166 No Longer Active Checo Conklin MD Activ e COMPRO 25 MG RECTAL SUPPOSITORY insert or apply one garza ppository rectally as directed every 12 hours as needed for nausea PROCHLORPERAZINE 31696404485 No Longer Active Checo Conklin MD A ctive SUMATRIPTAN SUCCINATE 100 MG ORAL TABLET Take one PRN for migran e SUMATRIPTAN SUCCINATE 57706555976 No Longer Active Checo Conklin MD Active TRAVEL SICKNESS 25 MG ORAL TABLET CHEWABLE chew and sw allow one tablet every 6 hours as needed MECLIZINE HCL 69199218603 No Longer A ctive Checo Conklin MD Active BUPROPION HCL ER (SR) 100 MG ORAL TABLET EXTENDED RELE ASE 12 HOUR take one tablet by mouth one time daily for one week then take 1 two times daily BUPROPION HCL 52370371657 No Longer Active hCeco gallagher MD Active TERBINAFINE HCL 250 MG ORAL TABLET take one table PO one time da moises TERBINAFINE HCL 77080156813 No Longer Active Checo Conklin MD Active METOCLOPRAMIDE HCL 10 MG ORAL TABLET take one PO tid PRN nausea METOCLOPRAMIDE HCL 10089236513 No Longer Active Checo Conklin MD Active DICLOFENAC SODIUM 75 MG ORAL TABLET DELAYED RELEASE 1 tablet by mouth twice daily PRN Knee pain DICLOFENAC SODIUM 22927285965 No Longer Active Checo Conklin MD Active LAMISIL 250 MG ORAL TABLET 1 po qd TERBINAFI NE HCL 89550865576 No Longer Active Checo Conklin MD Active REGLAN 10 MG ORAL TABLET 1 po TID PRN Nausea 3 METOCLOPRAMIDE HCL 74813561353 No Longer Active Checo Conklin MD Active CELEXA 20 MG ORAL TABLET 1 tablet by mouth daily 09/26 CITALOPRAM HYDROBROMIDE 39826028266 No Longer Active Checo Conklin MD Active AZITHROMYCIN 250 MG ORAL TABLET 2 po qd x 1 day, then 1 po q d x 4 days AZITHROMYCIN 82435221209 No Longer Active Checo Ortiz MD Active HYDROCODONE-ACETAMINOPHEN 5-325 MG ORAL TABLET 1 po q 6hr PRN Pa in HYDROCODONE-ACETAMINOPHEN 02338081743 No Longer Active Lenora Conklin MD Active PHENAZOPYRIDINE HCL 200 MG ORAL TABLET take 1 tab po TID for bladder pain PHENAZOPYRIDINE HCL 59843914049 No Longer Active Joe Conklin MD Active CIPRO 500 MG ORAL TABLET 1 tablet by mouth twice daily CIPROFLOXACIN HCL 52443139402 No Longer Active Dangelo Rangel MD Active HYDROCODONE-ACETAMINOPHEN 5-325 MG ORAL TABLET 1/2 to 1 po q 4 hours prn cough HYDROCODONE-ACETAMINOPHEN 67701052927 No Longer Activ e Dangelo Rangel MD Active BACTRIM DS 800-160 MG ORAL TABLET 1 po BID x 7 days 29/04/10 SULFAMETHOXAZOLE-TRIMETHOPRIM 53082031950 No Longer Active Checo Conklin MD Active PREDNISONE 20 MG ORAL TABLET 2 tabs daily for 3 days, 1 tab daily for 3 days, 1/2 tab daily for 2 days PREDNISONE 20421609069 No Longer Active Checo Conklin MD Active TRIAMCINOLONE ACETONIDE 0.1 % EXTERNAL OINTMENT Apply to affected areas TID for up to 2 weeks TRIAMCINOLONE ACETONIDE 88516144299 No Longer Active Checo Conklin MD Active CEFDINIR 300 MG ORAL CAPSULE by mouth twice a day 2013 CEFDINIR 77390885892 No Longer Active Dangelo Rangel MD Acti ve BUPROPION HCL ER (SMOKING DET) 150 MG ORAL TABLET EXTE NDED RELEASE 12 HOUR 1 a day for 1 week then 1 twice a day BUPROPION HCL (SMOKING DETER) 62986939373 No Longer Active Checo Conklin MD Active SIMVASTATIN 20 MG ORAL TABLET 1 po qd SIMVASTAT IN 18985420054 Active Checo Conklin MD Active CHANTIX STARTING MONTH KARTHIK 0.5 MG X 11 & 1 MG X 42 ORA L TABLET 0.5mg daily for 3 days, then 0.5mg BID for 4 days, then 1mg BID VARENICLINE TARTRATE 99554275302 No Longer Active Checo Conklin MD Activ e XANAX 0.5 MG ORAL TABLET 1 po BID PRN anxiety A LPRAZOLAM 52569607621 Active Checo Conklin MD Active CONCERTA 18 MG ORAL TABLET EXTENDED RELEASE 1 po q a.m. METHYLPHENIDATE HCL 49363144142 No Longer Active Checo Conklin MD Active AMBIEN 5 MG ORAL TABLET 1 po qHS PRN Insomnia Z OLPIDEM TARTRATE 93570664674 Active Checo Conklin MD Active TRAZODONE HCL 100 MG ORAL TABLET 0.5 to 1 po qHS PRN Insomnia 20 30/07/08 TRAZODONE HCL 24569323470 No Longer Active Checo Conklin MD Active FIORICET 325-50-40 MG TAB 1 tablet by mouth four times daily as needed [id number] 35707556847 No Longer Active Checo Conklin MD Active PHENERGAN CREAM* 25mg applied to wrist q6hr PRN Nausea PHENERGAN CREAM* No Longer Active Checo Conklin MD A ctive FLONASE 50 MCG/ACT NASAL SUSPENSION 1 spray each nostril am and hs FLUTICASONE PROPIONATE 61257797018 No Longer Active Checo Conklin MD Active ANTIPYRINE-BENZOCAINE 5.4-1.4 % OTIC SOLUTION 1-2 drops in affec yohannes ear BENZOCAINE-ANTIPYRINE 41726860309 No Longer Active Checo Conklin MD Active CEFDINIR 300 MG ORAL CAPSULE 1 po bid CEFDINIR 77481206004 No Longer Active Checo Conklin MD Active PREDNISONE 20 MG ORAL TABLET 2 tabs daily for 3 days, 1 tab daily for 3 days, 1/2 tab daily for 2 days PREDNISONE 94618797790 No Longer Active Checo Conklin MD Active AZITHROMYCIN 250 MG ORAL TABLET 2 po qd x 1 day, then 1 po q d x 4 days AZITHROMYCIN 73220295847 No Longer Active Checo Ortiz MD Active PREDNISONE 20 MG ORAL TABLET 2 tabs daily for 3 days, 1 tab daily for 3 days, 1/2 tab daily for 2 days PREDNISONE 65943550608 No Longer Active Checo Conklin MD Active ZITHROMAX Z-KARTHIK 250 MG ORAL TABLET 2 today, then 1 daily for 4 d ays AZITHROMYCIN 39148736588 No Longer Active Paul Hamlin MD Active FOCALIN XR 10 MG ORAL CAPSULE EXTENDED RELEASE 24 HOUR 1 po q a. m. DEXMETHYLPHENIDATE HCL 90634911034 No Longer Active Paul Hamlin MD Active PERCOCET 10-325 MG ORAL TABLET 1 tablet every 6 hours as needed for pain OXYCODONE-ACETAMINOPHEN 99783863061 No Longer Active Paul Hamlin MD Active LORTAB 5-500 MG ORAL TABLET 1/2 to 1 tablet by mouth e very 4 hours as needed for pain HYDROCODONE-ACETAMINOPHEN 18259777960 No Longer Active Checo Conklin MD Active FOCALIN XR 15 MG ORAL CAPSULE EXTENDED RELEASE 24 HOUR 1 po q a. m. DEXMETHYLPHENIDATE HCL 25899802619 No Longer Active Checo Conklin MD Active ZOFRAN ODT 4 MG ORAL TABLET DISINTEGRATING 1 po q6hr PRN Nausea ONDANSETRON 35906785491 No Longer Active Checo Conklin MD Active PERCOCET 5-325 MG ORAL TABLET 1 tablet by mouth every 6 hour s as needed OXYCODONE-ACETAMINOPHEN 89161403330 No Longer Active Checo Conklin MD Active PYRIDIUM 200 MG ORAL TABLET take 1 tab po TID prn urinary pain. PHENAZOPYRIDINE HCL 88037215005 No Longer Active Checo Joshua Active FLUCONAZOLE 150 MG ORAL TABLET take 1 tab po qday once FLUCONAZOLE 87074563377 No Longer Active Dangelo Rangel MD Acti ve CIPRO 500 MG ORAL TABLET 1 tablet by mouth twice daily CIPROFLOXACIN HCL 42892416990 No Longer Active Dangelo Rangel MD Active PYRIDIUM 200 MG ORAL TABLET take 1 tab po TID prn urinary pain. PYRIDIUM 200 MG ORAL TABLET 8629834 PHENAZOPYRIDINE HCL Inactive PERCOCET 5-325 MG ORAL TABLET 1 tablet by mouth every 6 hour s as needed PERCOCET 5-325 MG ORAL TABLET 6941583 OXYCODONE-ACETAMINOPHEN Inactive ZOFRAN ODT 4 MG ORAL TABLET DISINTEGRATING 1 po q6hr PRN Nausea ZOFRAN ODT 4 MG ORAL TABLET DISINTEGRATING 669409 ONDAN SETRON Inactive FOCALIN XR 15 MG ORAL CAPSULE EXTENDED RELEASE 24 HOUR 1 po q a. m. FOCALIN XR 15 MG ORAL CAPSULE EXTENDED RELEASE 24 HOUR DEXMETHYLPHENIDATE HCL Inactive LORTAB 5-500 MG ORAL TABLET 1/2 to 1 tablet by mouth e very 4 hours as needed for pain LORTAB 5-500 MG ORAL TABLET 294281 HYDROCODONE-ACETAMINOPHEN Inactive PERCOCET 10-325 MG ORAL TABLET 1 tablet every 6 hours as needed for pain PERCOCET 10-325 MG ORAL TABLET 4314030 OXYCODONE-ACETAMI NOPHEN Inactive FOCALIN XR 10 MG ORAL CAPSULE EXTENDED RELEASE 24 HOUR 1 po q a. m. FOCALIN XR 10 MG ORAL CAPSULE EXTENDED RELEASE 24 HOUR DEXMETHYLPHENIDATE HCL Inactive CEFDINIR 300 MG ORAL CAPSULE 1 po bid CEFDINI R 300 MG ORAL CAPSULE 004188 CEFDINIR Inactive ANTIPYRINE-BENZOCAINE 5.4-1.4 % OTIC SOLUTION 1-2 drops in affec yohannes ear ANTIPYRINE-BENZOCAINE 5.4-1.4 % OTIC SOLUTION 293510 BENZOCAINE-ANTIPYRINE Inactive FLONASE 50 MCG/ACT NASAL SUSPENSION 1 spray each nostril am and hs FLONASE 50 MCG/ACT NASAL SUSPENSION 8939918 FLUTICASONE PROPIONATE I nactive PHENERGAN CREAM* 25mg applied to wrist q6hr PRN Nausea PHENERGAN CREAM* Inactive FIORICET 325-50-40 MG TAB 1 tablet by mouth four times daily as needed FIORICET 325-50-40 MG TAB ACETAMINOPHEN-C AFF-BUTALBITAL Inactive TRAZODONE HCL 100 MG ORAL TABLET 0.5 to 1 po qHS PRN Insomnia 20 30/07/08 TRAZODONE HCL 100 MG ORAL TABLET 710178 TRAZODONE HCL Inactive CONCERTA 18 MG ORAL [...] cough HYDROCODONE-ACETAMINOPHEN 5-325 MG ORAL TABLET 8 35753 HYDROCODONE-ACETAMINOPHEN Inactive PHENAZOPYRIDINE HCL 200 MG ORAL TABLET take 1 tab po TID for bladder pain PHENAZOPYRIDINE HCL 200 MG ORAL TABLET 2937938 PHENAZOPYRIDINE HCL Inactive HYDROCODONE-ACETAMINOPHEN 5-325 MG ORAL TABLET 1 po q 6hr PRN Pa in HYDROCODONE-ACETAMINOPHEN 5-325 MG ORAL TABLET 791831 HYDROCODONE-ACETAMINOPHEN Inactive CELEXA 20 MG ORAL TABLET 1 tablet by mouth daily 09/26 CELEXA 20 MG ORAL TABLET 807591 CITALOPRAM HYDROBROMIDE Inactive REGLAN 10 MG ORAL TABLET 1 po TID PRN Nausea 3 REGLAN 10 MG ORAL TABLET 313425 METOCLOPRAMIDE HCL Inactive LAMISIL 250 MG ORAL TABLET 1 po qd L AMISIL 250 MG ORAL TABLET 225077 TERBINAFINE HCL Inactive DICLOFENAC SODIUM 75 MG ORAL TABLET DELAYED RELEASE 1 tablet by mouth twice daily PRN Knee pain DICLOFENAC SODIUM 75 MG ORAL TABLET DELAYED RELEASE 978663 DICLOFENAC SODIUM Inactive METOCLOPRAMIDE HCL 10 MG ORAL TABLET take one PO tid PRN nausea METOCLOPRAMIDE HCL 10 MG ORAL TABLET 771802 METOCLOPRAM ZACH HCL Inactive TERBINAFINE HCL 250 MG ORAL TABLET take one table PO one time da moises TERBINAFINE HCL 250 MG ORAL TABLET 668298 TERBINAFINE H CL Inactive BUPROPION HCL ER [...] SICKNESS 25 M G ORAL TABLET CHEWABLE 628126 MECLIZINE HCL Inactive SUMATRIPTAN SUCCINATE 100 MG ORAL TABLET Take one PRN for migran e SUMATRIPTAN SUCCINATE 100 MG ORAL TABLET 874327 SUMATRIPTAN SUCCINATE Inactive COMPRO 25 MG RECTAL SUPPOSITORY insert or apply one garza ppository rectally as directed every 12 hours as needed for nausea COMPRO 25 MG RECTAL SUPPOSITORY 152890 PROCHLORPERAZINE Inactive ONDANSETRON 8 MG ORAL TABLET DISINTEGRATING place one tablet on tongue and allow to dissolve every 6 hours as needed for vomitting ONDANSETRON 8 MG ORAL TABLET DISINTEGRATING 313036 ONDANSETRON Inactive HYDROCODONE-ACETAMINOPHEN 5-325 MG ORAL TABLET 0.5 to 1 tab by mouth every 6 hours as needed HYDROCODONE-ACETAMIN OPHEN 5-325 MG ORAL TABLET 477535 HYDROCODONE-ACETAMINOPHEN Inactive BACTRIM DS 800-160 MG ORAL TABLET 1 tab by mouth twice daily 201 11/23/03 BACTRIM DS 800-160 MG ORAL TABLET 066918 TRIMETHOPRIM-SULFAMETHOXAZOLE Inactive DIFLUCAN 150 MG ORAL TABLET [...] as needed HYDROCODONE-ACETAMINOPHEN 5-325 MG ORAL TABLET 971917 HYDROCODONE-ACETAMINOPHEN Inactive BACTROBAN 2 % EXTERNAL CREAM Apply to affected area BID for up to 10 days BACTROBAN 2 % EXTERNAL CREAM 636111 MUPIROCIN CA LCIUM Inactive MAGNESIUM CITRATE 1.745 GM/30ML ORAL SOLUTION 150ml po BID P RN Constipation MAGNESIUM CITRATE 1.745 GM/30ML ORAL SOLUTION 10 59515 MAGNESIUM CITRATE Inactive DIFLUCAN 150 MG ORAL TABLET 1 tablet by mouth qod 2015 DIFLUCAN 150 MG ORAL TABLET 309066 FLUCONAZOLE Inactive BACTRIM DS 800-160 MG ORAL TABLET 1 tab by mouth twice daily 201 12/19/26 BACTRIM DS 800-160 MG ORAL TABLET 747119 TRIMETHOPRIM-SULFAMETHOXAZOLE Inactive CLARITIN 10 MG ORAL TABLET 1 tablet by mouth daily as needed for allergies CLARITIN 10 MG ORAL TABLET 393301 LORATADINE I nactive FLUTICASONE PROPIONATE 50 MCG/ACT NASAL SUSPENSION 2 s prays/nostril qd PRN Congestion/Allergies FLUTICASONE PROPION ATE 50 MCG/ACT NASAL SUSPENSION 8472095 FLUTICASONE PROPIONATE Inactive MIRALAX ORAL POWDER 8.5 to 17g po qd PRN Constipation MIRALAX ORAL POWDER 582466 POLYETHYLENE GLYCOL 3350 Inactive CIPRO 500 MG ORAL TABLET 1 tablet by mouth twice daily CIPRO 500 MG ORAL TABLET 373751 CIPROFLOXACIN HCL Inactive FLUCONAZOLE 150 MG ORAL TABLET take 1 tab po qday once FLUCONAZOLE 150 MG ORAL TABLET 926503 FLUCONAZOLE Inactive ZITHROMAX Z-KARTHIK 250 MG ORAL TABLET 2 today, then 1 daily for 4 d ays ZITHROMAX Z-KARTHIK 250 MG ORAL TABLET 401751 AZITHROMYCIN Inactive PREDNISONE 20 MG ORAL TABLET 2 tabs daily for 3 days, 1 tab daily for 3 days, 1/2 tab daily for 2 days PREDNISONE 20 MG ORAL T ABLET 066070 PREDNISONE Inactive AZITHROMYCIN 250 MG ORAL TABLET 2 po qd x 1 day, then 1 po q d x 4 days AZITHROMYCIN 250 MG ORAL TABLET 697522 AZITHROMY SPARKLE Inactive PREDNISONE 20 MG ORAL TABLET 2 tabs daily for 3 days, 1 tab daily for 3 days, 1/2 tab daily for 2 days PREDNISONE 20 MG ORAL TABLET 605235 PREDNISONE Inactive CEFDINIR 300 MG ORAL CAPSULE by mouth twice a day 2013 CEFDINIR 300 MG ORAL CAPSULE 563368 CEFDINIR Inactive TRIAMCINOLONE ACETONIDE 0.1 % EXTERNAL OINTMENT Apply to affected areas TID for up to 2 weeks TRIAMCINOLONE ACETON ZACH 0.1 % EXTERNAL OINTMENT 6253065 TRIAMCINOLONE ACETONIDE Inactive PREDNISONE 20 MG ORAL TABLET 2 tabs daily for 3 days, 1 tab daily for 3 days, 1/2 tab daily for 2 days PREDNISONE 20 MG ORAL T ABLET 697105 PREDNISONE Inactive BACTRIM DS 800-160 MG ORAL TABLET 1 po BID x 7 days 29/04/10 BACTRIM DS 800-160 MG ORAL TABLET 278876 SULFAMETHOXAZOLE-TRIMETHOP RIM Inactive CIPRO 500 MG ORAL TABLET 1 tablet by mouth twice daily CIPRO 500 MG ORAL TABLET 426301 CIPROFLOXACIN HCL Inactive AZITHROMYCIN 250 MG ORAL TABLET 2 po qd x 1 day, then 1 po q d x 4 days AZITHROMYCIN 250 MG ORAL TABLET 136019 AZITHROMY SPARKLE Inactive FLAGYL 500 MG ORAL TABLET 1 tablet by mouth bid 04/13 FLAGYL 500 MG ORAL TABLET 947154 METRONIDAZOLE Inactive AZITHROMYCIN 250 MG ORAL TABLET 2 po qd x 1 day, then 1 po q d x 4 days AZITHROMYCIN 250 MG ORAL TABLET 099643 AZITHROMY SPARKLE Inactive AMOXICILLIN 500 MG ORAL CAPSULE 2 po BID x 10 days 201 01/15/27 AMOXICILLIN 500 MG ORAL CAPSULE 164865 AMOXICILLIN Inactive AMOXICILLIN 500 MG ORAL CAPSULE 2 po BID x 14 days for H. Pylori AMOXICILLIN 500 MG ORAL CAPSULE 772739 AMOXICILLIN Inactive CLARITHROMYCIN 500 MG ORAL TABLET 1 tab po BID x 14 days CLARITHROMYCIN 500 MG ORAL TABLET 470102 CLARITHROMYCIN Inacti ve FLAGYL 500 MG ORAL TABLET 1 tablet by mouth bid 08/29 FLAGYL 500 MG ORAL TABLET 766108 METRONIDAZOLE Inactive PROTONIX 40 MG ORAL TABLET DELAYED RELEASE 1 pill by m outh daily, for acid reflux PROTONIX 40 MG ORAL TABLET DELAYED RELEAS E 534668 PANTOPRAZOLE SODIUM Inactive Immunizations Vaccine Administration Date [...] ... - Chemistry sodium, serum 139 mmol/L 174-093 9068/11/28 carbon dioxide, venous blood 26.0 mmol/L 21.0-32 [...] 5.0-8.5 Encounters Code Encounter Date Provider Facility CPT-77607 Level 4 Est. Patient 08:57:51 SQL DEVELOPER Checo Conklin MD [facility] CPT-77572 Level 3 Est. Patient 11:24:55 SQL DEVELOPER Efren almendarez APRN [facility] CPT-07410 Level 3 Est. Patient 13:05:44 CDT Paul Hamlin MD [facility] CPT-83207 Level 3 Est. Patient 11:29:55 CDT Checo Conklin MD [facility] CPT-48315 Level 4 Est. Patient 11:08:12 SQL DEVELOPER Checo Conklin MD [facility] CPT-29266 Level 4 Est. Patient 16:06:48 SQL DEVELOPER Checo Conklin MD [facility] CPT-12673 Level 3 Est. Patient 09:11:49 CDT Efren almendarez [facility] CPT-10958 Level 2 Est. Patient 19:53:27 CDT Tanner ihll MD [facility] CPT-43110 Level 3 Est. Patient 09:15:34 CDT Efren almendarez [facility] CPT-33270 Level 3 Est. Patient 11:28:51 SQL DEVELOPER Efren almendarez [facility] CPT-40135 Level 4 Est. Patient 13:55:46 SQL DEVELOPER Checo Conklin MD [facility] CPT-09557 Level 4 Est. Patient 17:10:53 CDT Checo Conklin MD [facility] CPT-06964 Level 3 Est. Patient 15:56:22 CDT Checo Conklin MD [facility] CPT-38377 Level 3 Est. Patient 15:29:07 CDT Checo Conklin MD [facility] CPT-48730 Level 3 Est. Patient 14:38:41 CDT Checo Conklin MD [facility] CPT-97383 Level 3 Est. Patient 15:22:03 SQL DEVELOPER Thomas reynolds DO [facility] CPT-56662 Level 3 Est. Patient 13:34:17 SQL DEVELOPER Checo Conklin MD [facility] CPT-24566 Level 3 Est. Patient 12:29:32 CDT Dangelo arroyo MD [facility] CPT-37060 Level 3 Est. Patient 16:53:02 CDT Checo Conklin MD [facility] CPT-20745 Level 3 Est. Patient 16:37:13 CDT Checo Conklin MD [facility] CPT-45725 Level 3 Est. Patient 16:16:59 CDT Paul Hamlin MD [facility] CPT-49331 Level 3 Est. Patient 14:20:13 CDT Dangelo arroyo MD [facility] CPT-42571 Level 4 Est. Patient 11:29:33 CDT Checo Conklin MD [facility] CPT-17315 Level 3 Est. Patient 17:08:31 CDT Checo Conklin MD [facility] CPT-20526 Level 3 Est. Patient 16:50:42 SQL DEVELOPER Checo Conklin MD [facility] CPT-47149 Level 4 Est. Patient 09:26:08 SQL DEVELOPER Checo Conklin MD [facility] CPT-79057 Level 3 Est. Patient 11:37:10 CDT Checo Conklin MD [facility] CPT-69804 Level 4 Est. Patient 14:07:38 CDT Checo Conklin MD [facility] CPT-09265 Level 3 Est. Patient 09:54:41 CDT Checo Conklin MD [facility] CPT-48822 Level 3 Est. Patient 11:10:54 CDT Paul Hamlin MD [facility] CPT-25569 Level 3 Est. Patient 14:16:56 SQL DEVELOPER Checo Conklin MD [facility] CPT-60343 Level 3 Est. Patient 11:04:11 SQL DEVELOPER Checo Conklin MD [facility] CPT-81010 Level 3 Est. Patient 17:09:26 CDT Dangelo arroyo MD [facility] CPT-28506 Level 3 Est. Patient 16:54:37 CDT Checo Conklin MD [facility] Procedures Code Procedure Name Date Entry Date Standard Desc ription CPT-81059 Abd compl w upright - XRAY USE ONLY 1 1:36:54 SQL DEVELOPER CPT-32409 UA w micro - LAB USE ONLY 17:06:46 CDT 2015 CPT-72592 [facility] Qual - LAB USE ONLY 17:06:46 CDT 05/06 CPT-11718 CMP - LAB USE ONLY 17:06:46 CDT CPT-69015 CBC with Diff - LAB USE ONLY 17:06:45 CDT 2 CPT-92749 Venipuncture Draw Fee 17:06:45 CDT CPT-LR Lesion Removal 19:53:27 CDT CPT-OV Office Visit 11:31:28 CDT CPT-93671 Tubersol 09:39:29 CDT CPT-J2550 Phenergan 25 mg (Promethazine) 13:59:02 SQL DEVELOPER CPT-J1885 Toradol 60 mg (Ketorolac) 13:59:02 SQL DEVELOPER 2012
--- OUTSIDE RECORDS SUMMARY | 2019-09-29 02:19 | XMS REPORT | Clinical Summary ---
Author Author Admin, Bethany Gonzales Organization [email or web address] Address Unknown Phone Unavailable Allergies, Adverse Reactions, [...] MD Acute pharyngitis TOBACCO ABUSE 305.1 Inactive Palu Hamlin MD Tobacco use disorder Tobacco user [...] Conklin MD Insomnia, unspecified Hyperlipidemia 272.4 Active Cheoc Conklin MD Other and unspecified hyperlipidemia Migraine [...] TABS 1.5 po qd PAROX ETINE HCL 62120712172 Active Checo Conklin MD Active FLUTICASONE PROPIONATE 50 MCG/ACT NASAL SUSP 2 sprays/ nostril qd PRN Congestion/Allergies FLUTICASONE PROPIONATE 7039371047 5 No Longer Active Checo Conklin MD Active AMOXICILLIN 500 MG ORAL CAPS 2 po BID x 10 days 09/12 AMOXICILLIN 86482828564 No Longer Active Checo Conklin MD Activ e MIRALAX ORAL POWD 8.5 to 17g po qd PRN Constipation POLYETHYLENE GLYCOL 3350 28600480938 Active Checo Conklin MD Active CLARITIN 10 MG TAB 1 tablet by mouth daily as needed for allergi es LORATADINE 11122955491 No Longer Active Checo Conklin MD Active BACTRIM DS 800-160 MG TAB 1 tab by mouth twice daily 2 TRIMETHOPRIM-SULFAMETHOXAZOLE 21566693120 No Longer Active Tanner Carrillo MD Active DIFLUCAN 150 MG TAB 1 tablet by mouth qod FLUCO NAZOLE 03611737912 No Longer Active Efren Medel APRN Active AZITHROMYCIN 250 MG TABS 2 po qd x 1 day, then 1 po qd x 4 days AZITHROMYCIN 02480992075 No Longer Active Efren Medel [employer] Active FLAGYL 500 MG TAB 1 tablet by mouth bid METRONI DAZOLE 69189891914 No Longer Active Checo Conklin MD Active FOCALIN XR 10 MG ORAL [id number] 1 po q a.m. DEX METHYLPHENIDATE HCL 42341711841 Active Checo Conklin MD Active MAGNESIUM CITRATE 1.745 GM/30ML ORAL SOLN 150ml po BID PRN C onstipation MAGNESIUM CITRATE 68229927028 No Longer Active Checo Conklin MD Active BACTROBAN 2 % CREAM Apply to affected area BID for up to 10 days MUPIROCIN CALCIUM 21202086660 No Longer Active Checo Cnoklin MD Active HYDROCODONE-ACETAMINOPHEN 5-325 MG TABS 1 tab by mouth every 6 hours as needed HYDROCODONE-ACETAMINOPHEN 73120077426 No Longer Activ e Checo Conklin MD Active IBUPROFEN 800 MG TABS 1 tab every 8 hours with food 20 31/03/21 IBUPROFEN 08171680803 No Longer Active Checo Conklin MD Activ e DIFLUCAN 150 MG TAB 1 tablet by mouth if needed, hold until symptoms start FLUCONAZOLE 34329925508 No Longer Active Checo Ortiz MD Active BACTRIM DS 800-160 MG TAB 1 tab by mouth twice daily 2 TRIMETHOPRIM-SULFAMETHOXAZOLE 03899502305 No Longer Active Corry leong LPN Active HYDROCODONE-ACETAMINOPHEN 5-325 MG TABS 0.5 to 1 tab b y mouth every 6 hours as needed HYDROCODONE-ACETAMINOPHEN 01342013140 No Longer Active Checo Conklin MD Active ONDANSETRON [address] one tablet on tongue and allow to dissolve every 6 hours as needed for vomitting ONDANSETRO N 62178910535 No Longer Active Checo Conklin MD Active COMPRO 25 MG RECTAL SUPP insert or apply one supposit ory rectally as directed every 12 hours as needed for nausea PROCHLORPERA ZINE 64953549840 No Longer Active Checo Conklin MD Active SUMATRIPTAN SUCCINATE 100 MG ORAL TABS Take one PRN for migrane SUMATRIPTAN SUCCINATE 09449650439 No Longer Active Checo Conklin MD Active TRAVEL SICKNESS 25 MG ORAL CHEW chew and swallow one t ablet every 6 hours as needed MECLIZINE HCL 18017058660 No Longer Active Joe Conklin MD Active BUPROPION HCL ER (SR) 100 MG ORAL [id number] take one t ablet by mouth one time daily for one week then take 1 two times daily BUPROPION HCL 77522542207 No Longer Active Checo Conklin MD Activ e TERBINAFINE HCL 250 MG ORAL TABS take one table PO one time abran y TERBINAFINE HCL 26387053259 No Longer Active Checo Conklin MD Active METOCLOPRAMIDE HCL 10 MG ORAL TABS take one PO tid PRN nausea 20 29/12/14 METOCLOPRAMIDE HCL 76393917141 No Longer Active Checo Conklin MD Active DICLOFENAC SODIUM 75 MG TBEC 1 tablet by mouth twice daily P RN Knee pain DICLOFENAC SODIUM 23346774335 No Longer Active Checo Conklin MD Active LAMISIL 250 MG TAB 1 po qd TERBINAFINE HCL 548 65049763 No Longer Active Checo Conklin MD Active REGLAN 10 MG TAB 1 po TID PRN Nausea METOCLOPRA MIDE HCL 47182827135 No Longer Active Checo Conklin MD Active CELEXA 20 MG TABS 1 tablet by mouth daily CITALOPRAM HYDROBROMIDE 38421201337 No Longer Active Checo Conklin MD Activ e AZITHROMYCIN 250 MG TABS 2 po qd x 1 day, then 1 po qd x 4 days AZITHROMYCIN 64152724890 No Longer Active Checo Conklin MD Active HYDROCODONE-ACETAMINOPHEN 5-325 MG TABS 1 po q 6hr PRN Pain 2013 HYDROCODONE-ACETAMINOPHEN 24292555298 No Longer Active Lenora Conklin MD Active PHENAZOPYRIDINE HCL 200 MG TABS take 1 tab po TID for bladder pa in PHENAZOPYRIDINE HCL 82118018829 No Longer Active Checo Joshua Active CIPRO 500 MG TAB 1 tablet by mouth twice daily CIPROFLOXACIN HCL 30268717567 No Longer Active Dangelo Rangel MD Active HYDROCODONE-ACETAMINOPHEN 5-325 MG TABS 1/2 to 1 po q 4 hour s prn cough HYDROCODONE-ACETAMINOPHEN 86741672790 No Longer Activ e Dangelo Rangel MD Active BACTRIM DS 800-160 MG TABS 1 po BID x 7 days 0 SULFAMETHOXAZOLE-TRIMETHOPRIM 71942248679 No Longer Active Checo Conklin MD Active PREDNISONE 20 MG TAB 2 tabs daily for 3 days, 1 t ab daily for 3 days, 1/2 tab daily for 2 days PREDNISONE 17521493032 No Longer Active Checo Conklin MD Active TRIAMCINOLONE ACETONIDE 0.1 % OINT Apply to affected a reas TID for up to 2 weeks TRIAMCINOLONE ACETONIDE 75159383927 No Longer A ctive Checo Conklin MD Active CEFDINIR 300 MG CAPS by mouth twice a day CEFDI JAZZY 68805921050 No Longer Active Dangelo Rangel MD Active BUPROPION HCL (SMOKING DETER) 150 MG [id number] 1 a day for 1 week then 1 twice a day BUPROPION HCL (SMOKING DETER) 90073506120 No Lo nger Active Checo Conklin MD Active SIMVASTATIN 20 MG TABS 1 po qd SIMVASTATIN 1202332513 5 Active Checo Conklin MD Active CHANTIX STARTING MONTH KARTHIK 0.5 MG X 11 & 1 MG X 42 TAB S 0.5mg daily for 3 days, then 0.5mg BID for 4 days, then 1mg BID VARENICLINE TARTRATE 88153717452 No Longer Active Checo Conklin MD Activ e XANAX 0.5 MG TABS 1 po BID PRN anxiety ALPRAZOLAM 98779850738 Active Checo Conklin MD Active CONCERTA 18 MG CR-TABS 1 po q a.m. METHYLPHENID ATE HCL 73227499767 No Longer Active Checo Conklin MD Active AMBIEN 5 MG TAB 1 po qHS PRN Insomnia ZOLPIDEM TARTRATE 67233583565 Active Checo Conklin MD Active TRAZODONE HCL 100 MG TAB 0.5 to 1 po qHS PRN Insomnia TRAZODONE HCL 89066646692 No Longer Active Checo Conklin MD Acti ve FIORICET 325-50-40 MG TAB 1 tablet by mouth four times daily as needed [id number] 91186521859 No Longer Active Checo Conklin MD Active PHENERGAN CREAM* 25mg applied to wrist q6hr PRN Nausea PHENERGAN CREAM* No Longer Active Checo Conklin MD A ctive FLONASE 50 MCG/ACT SUSP 1 spray each nostril am and hs FLUTICASONE PROPIONATE 04204077294 No Longer Active Checo Conklin MD Activ e ANTIPYRINE-BENZOCAINE 5.4-1.4 % SOLN 1-2 drops in affected ear BENZOCAINE-ANTIPYRINE 05838721239 No Longer Active Checo Conklin MD Active CEFDINIR 300 MG CAPS 1 po bid CEFDINIR 61063977 120 No Longer Active Checo Conklin MD Active PREDNISONE 20 MG TAB 2 tabs daily for 3 days, 1 t ab daily for 3 days, 1/2 tab daily for 2 days PREDNISONE 84577950393 No Longer Active Aracelis Conklin MD Active AZITHROMYCIN 250 MG TABS 2 po qd x 1 day, then 1 po qd x 4 days AZITHROMYCIN 17875476906 No Longer Active Checo Conklin MD Active PREDNISONE 20 MG TAB 2 tabs daily for 3 days, 1 t ab daily for 3 days, 1/2 tab daily for 2 days PREDNISONE 75118796178 No Longer Active Checo Conlkin MD Active ZITHROMAX Z-KARTHIK 250 MG TABS 2 today, then 1 daily for 4 days 201 09/18/28 AZITHROMYCIN 84405121604 No Longer Active Paul Hamlin MD Active FOCALIN XR 10 MG [id number] 1 po q a.m. D EXMETHYLPHENIDATE HCL 63435507483 No Longer Active Paul Hamlin MD Activ e PERCOCET 10-325 MG TABS 1 tablet every 6 hours as needed for pain OXYCODONE-ACETAMINOPHEN 73511193850 No Longer Active Paul Hamlin MD Active LORTAB 5 5-500 MG TABS 1/2 to 1 tablet by mouth flaquito ry 4 hours as needed for pain HYDROCODONE-ACETAMINOPHEN 14562844986 No Longer Active Checo Conklin MD Active FOCALIN XR 15 MG [id number] 1 po q a.m. D EXMETHYLPHENIDATE HCL 62617463286 No Longer Active Checo Conklin MD Activ e ZOFRAN ODT 4 MG TBDP 1 po q6hr PRN Nausea ONDAN SETRON 18204802588 No Longer Active Checo Conklin MD Active PERCOCET 5-325 MG TABS 1 tablet by mouth every 6 hours as needed OXYCODONE-ACETAMINOPHEN 87341024772 No Longer Active Checo Conklin MD Active PYRIDIUM 200 MG TABS take 1 tab po TID prn urinary pain. 0 PHENAZOPYRIDINE HCL 33562941243 No Longer Active Checo Conklin MD Active FLUCONAZOLE 150 MG TABS take 1 tab po qday once 0 04/06 FLUCONAZOLE 08108784933 No Longer Active Dangelo Rangel MD Acti ve CIPRO 500 MG TAB 1 tablet by mouth twice daily CIPROFLOXACIN HCL 52298503654 No Longer Active Dangelo Rangel MD Active PYRIDIUM 200 MG TABS take 1 tab po TID prn urinary pain. 0 PYRIDIUM 200 MG TABS 1443455 PHENAZOPYRIDINE HCL Inactive PERCOCET 5-325 MG TABS 1 tablet by mouth every 6 hours as needed PERCOCET 5-325 MG TABS 5477566 OXYCODONE-ACETAMINOPHEN I nactive ZOFRAN ODT 4 MG TBDP 1 po q6hr PRN Nausea ZOFRAN ODT 4 MG TBDP 174050 ONDANSETRON Inactive FOCALIN XR 15 MG [id number] 1 po q a.m. F OCALIN XR 15 MG [id number] DEXMETHYLPHENIDATE HCL Inactive LORTAB 5 5-500 MG TABS 1/2 to 1 tablet by mouth flaquito ry 4 hours as needed for pain LORTAB 5 5-500 MG TABS 913370 HYDROCODONE-A CETAMINOPHEN Inactive PERCOCET 10-325 MG TABS 1 tablet every 6 hours as needed for pain PERCOCET 10-325 MG TABS 0346713 OXYCODONE-ACETAMINOPHEN Inactive FOCALIN XR 10 MG [id number] 1 po q a.m. F OCALIN XR 10 MG [id number] DEXMETHYLPHENIDATE HCL Inactive CEFDINIR 300 MG CAPS 1 po bid CEFDINIR 300 MG CAPS 20 0346 CEFDINIR Inactive ANTIPYRINE-BENZOCAINE 5.4-1.4 % SOLN 1-2 drops in affected ear ANTIPYRINE-BENZOCAINE 5.4-1.4 % SOLN 950673 BENZOCAINE-ANTIPYRINE I nactive FLONASE 50 MCG/ACT SUSP 1 spray each nostril am and hs FLONASE 50 MCG/ACT SUSP 6578043 FLUTICASONE PROPIONATE Inactive PHENERGAN CREAM* 25mg applied to wrist q6hr PRN Nausea PHENERGAN CREAM* Inactive FIORICET 325-50-40 MG TAB 1 tablet by mouth four times daily as needed FIORICET 325-50-40 MG TAB ACETAMINOPHEN-C AFF-BUTALBITAL Inactive TRAZODONE HCL 100 MG TAB 0.5 to 1 po qHS PRN Insomnia TRAZODONE HCL 100 MG TAB 819538 TRAZODONE HCL Inactive CONCERTA 18 MG CR-TABS [...] s prn cough HYDROCODONE-ACETAMINOPHEN 5-325 MG TABS 689594 HYDROCODONE-ACETAMINOPHEN Inactive PHENAZOPYRIDINE HCL 200 MG TABS take 1 tab po TID for bladder pa in PHENAZOPYRIDINE HCL 200 MG TABS 6754783 PHENAZOPYRIDINE HCL Inactive HYDROCODONE-ACETAMINOPHEN 5-325 MG TABS 1 po q 6hr PRN Pain 2013 HYDROCODONE-ACETAMINOPHEN 5-325 MG TABS 421335 HYDROCODONE-ACETAMINOPHEN Inactive CELEXA 20 MG TABS 1 tablet by mouth daily CELEXA 20 MG TABS 337408 CITALOPRAM HYDROBROMIDE Inactive REGLAN 10 MG TAB 1 po TID PRN Nausea REGLAN 10 MG TAB 781863 METOCLOPRAMIDE HCL Inactive LAMISIL 250 MG TAB 1 po qd LAMISIL 250 MG TAB 071438 TERBINAFINE HCL Inactive DICLOFENAC SODIUM 75 MG TBEC 1 tablet by mouth twice daily P RN Knee pain DICLOFENAC SODIUM 75 MG TBEC 591896 DICLOFENAC S ODIUM Inactive METOCLOPRAMIDE HCL 10 MG ORAL TABS take one PO tid PRN nausea 20 29/12/14 METOCLOPRAMIDE HCL 10 MG ORAL TABS 034896 METOCLOPRAMID E HCL Inactive TERBINAFINE HCL 250 MG ORAL TABS take one table PO one time abran y TERBINAFINE HCL 250 MG ORAL TABS 658013 TERBINAFINE HCL Inactive BUPROPION HCL ER (SR) 100 MG ORAL [id number] take one t ablet by mouth one time daily for one week then take 1 two times daily BUPROPION HCL ER (SR) 100 MG ORAL [id number] BUPROPION HCL Inacti ve TRAVEL SICKNESS 25 MG ORAL CHEW chew and swallow one t ablet every 6 hours as needed TRAVEL SICKNESS 25 MG ORAL CHEW 184200 MECLIZINE HCL Inactive SUMATRIPTAN SUCCINATE 100 MG ORAL TABS Take one PRN for migrane SUMATRIPTAN SUCCINATE 100 MG ORAL TABS 994277 SUMATRIPT AN SUCCINATE Inactive COMPRO 25 MG RECTAL SUPP insert or apply one supposit ory rectally as directed every 12 hours as needed for nausea COMP RO 25 MG RECTAL SUPP 714976 PROCHLORPERAZINE Inactive ONDANSETRON [address] one tablet on tongue and allow to dissolve every 6 hours as needed for vomitting ON DANSETRON 8 MG ORAL TBDP 440185 ONDANSETRON Inactive HYDROCODONE-ACETAMINOPHEN 5-325 MG TABS 0.5 to 1 tab b y mouth every 6 hours as needed HYDROCODONE-ACETAMINOPHEN 5-325 MG TABS 8 73006 HYDROCODONE-ACETAMINOPHEN Inactive BACTRIM DS 800-160 MG TAB 1 tab by mouth twice daily 2 BACTRIM DS 800-160 MG TAB 19820918 TRIMETHOPRIM-SULFAMETHOXAZOLE Inac tive DIFLUCAN 150 MG TAB 1 tablet by mouth if needed, hold until symptoms start DIFLUCAN 150 MG TAB 19760325 FLUCONAZOLE Inactive IBUPROFEN 800 MG TABS 1 tab every 8 hours with food 31/03/21 IBUPROFEN 800 MG TABS 172952 IBUPROFEN Inactive HYDROCODONE-ACETAMINOPHEN 5-325 MG TABS 1 tab by mouth every 6 hours as needed HYDROCODONE-ACETAMINOPHEN 5-325 MG TABS 385888 HYDROCODONE-ACETAMINOPHEN Inactive BACTROBAN 2 % CREAM Apply to affected area BID for up to 10 days BACTROBAN 2 % CREAM 941846 MUPIROCIN CALCIUM Inactive MAGNESIUM CITRATE 1.745 GM/30ML ORAL SOLN 150ml po BID PRN C onstipation MAGNESIUM CITRATE 1.745 GM/30ML ORAL SOLN 587903 0 MAGNESIUM CITRATE Inactive DIFLUCAN 150 MG TAB 1 tablet by mouth qod DIFLUCAN 150 MG TAB 709996 FLUCONAZOLE Inactive BACTRIM DS 800-160 MG TAB 1 tab by mouth twice daily 2 BACTRIM DS 800-160 MG TAB 19820918 TRIMETHOPRIM-SULFAMETHOXAZOLE Inac tive CLARITIN 10 MG TAB 1 tablet by mouth daily as needed for allergi es CLARITIN 10 MG TAB 393083 LORATADINE Inactive FLUTICASONE PROPIONATE 50 MCG/ACT NASAL SUSP 2 sprays/ nostril qd PRN Congestion/Allergies FLUTICASONE PROPION ATE 50 MCG/ACT NASAL SUSP 1170401 FLUTICASONE PROPIONATE Inactive CIPRO 500 MG TAB 1 tablet by mouth twice daily CIPRO 500 MG TAB 984649 CIPROFLOXACIN HCL Inactive FLUCONAZOLE 150 MG TABS take 1 tab po qday once 04/06 FLUCONAZOLE 150 MG TABS 033600 FLUCONAZOLE Inactive ZITHROMAX Z-KARTHIK 250 MG TABS 2 today, then 1 daily for 4 days 201 09/18/28 ZITHROMAX Z-KARTHIK 250 MG TABS 416057 AZITHROMYCIN Inac tive PREDNISONE 20 MG TAB 2 tabs daily for 3 days, 1 t ab daily for 3 days, 1/2 tab daily for 2 days PREDNISONE 20 MG TAB 905803 PREDNISON E Inactive AZITHROMYCIN 250 MG TABS 2 po qd x 1 day, then 1 po qd x 4 days AZITHROMYCIN 250 MG TABS 173287 AZITHROMYCIN Inactiv e PREDNISONE 20 MG TAB 2 tabs daily for 3 days, 1 t ab daily for 3 days, 1/2 tab daily for 2 days PREDNISONE 20 MG TAB 374354 PREDNISON E Inactive CEFDINIR 300 MG CAPS by mouth twice a day CEFDINIR 300 MG CAPS 976637 CEFDINIR Inactive TRIAMCINOLONE ACETONIDE 0.1 % OINT Apply to affected a reas TID for up to 2 weeks TRIAMCINOLONE ACETONIDE 0.1 % OINT 443477 6 TRIAMCINOLONE ACETONIDE Inactive PREDNISONE 20 MG TAB 2 tabs daily for 3 days, 1 t ab daily for 3 days, 1/2 tab daily for 2 days PREDNISONE 20 MG TAB 585834 PREDNISON E Inactive BACTRIM DS 800-160 MG TABS 1 po BID x 7 days 0 BACTRIM DS 800-160 MG TABS 492260 SULFAMETHOXAZOLE-TRIMETHOPRIM Inactive CIPRO 500 MG TAB 1 tablet by mouth twice daily CIPRO 500 MG TAB 327685 CIPROFLOXACIN HCL Inactive AZITHROMYCIN 250 MG TABS 2 po qd x 1 day, then 1 po qd x 4 days AZITHROMYCIN 250 MG TABS 890194 AZITHROMYCIN Inactiv e FLAGYL 500 MG TAB 1 tablet by mouth bid FLAGYL 500 MG TAB 683306 METRONIDAZOLE Inactive AZITHROMYCIN 250 MG TABS 2 po qd x 1 day, then 1 po qd x 4 days AZITHROMYCIN 250 MG TABS 700587 AZITHROMYCIN Inactiv e AMOXICILLIN 500 MG ORAL CAPS 2 po BID x 10 days 09/12 AMOXICILLIN 500 MG ORAL CAPS 973809 AMOXICILLIN Inactive Immunizations Vaccine Administration Date Value [...] d blood pressure, diastolic 68 mm[Hg] BP mathwe blood pressure, systolic 122 mm[Hg] BP sys pulse rate E&M 69 /min Heart rate temperature E&M 98.3 [degF] Body temp erature weight E&M 130.3 [lb_av] Weight Measure d Diagnostic Results Date Name Value Unit Range Description Lab Report: CBC-QUEST, COMPREHENSIVE MET ABOLIC PANEL, LIPID PANEL - Chemistry cholesterol, serum 192 mg/dL 641-037 1812/02/20 HDL cholesterol, serum 31 mg/dL > OR [...] 11 .0-15.0 platelet count 218 THOUSAND/UL 10*3/mm3 395-206 7564/02/20 mean platelet volume 9.7 fL 7.5-12.5 Encounters Code Encounter Date Provider Facility CPT-65338 Level 3 Est. Patient 13:05:44 CDT Paul Hamlin MD [facility] CPT-97663 Level 3 Est. Patient 11:29:55 CDT Checo Conklin MD [facility] CPT-60087 Level 4 Est. Patient 11:08:12 EEO OFFICER Checo Conklin MD [facility] CPT-39901 Level 4 Est. Patient 16:06:48 EEO OFFICER Checo Conklin MD [facility] CPT-82127 Level 3 Est. Patient 09:11:49 CDT Efren almendarez APRN [facility] CPT-78810 Level 2 Est. Patient 19:53:27 CDT Tanner hill MD [facility] CPT-33385 Level 3 Est. Patient 09:15:34 CDT Efren almendarez [facility] CPT-58131 Level 3 Est. Patient 11:28:51 EEO OFFICER Efren almendarez [facility] CPT-97940 Level 4 Est. Patient 13:55:46 EEO OFFICER Checo Conklin MD [facility] CPT-49777 Level 4 Est. Patient 17:10:53 CDT Checo Conklin MD [facility] CPT-95638 Level 3 Est. Patient 15:56:22 CDT Checo Conklin MD [facility] CPT-72628 Level 3 Est. Patient 15:29:07 CDT Checo Conklin MD [facility] CPT-50352 Level 3 Est. Patient 14:38:41 CDT Checo Conklin MD [facility] CPT-50417 Level 3 Est. Patient 15:22:03 EEO OFFICER Thomas reynolds DO [facility] CPT-81498 Level 3 Est. Patient 13:34:17 EEO OFFICER Checo Conklin MD [facility]-97579 Level 3 Est. Patient 12:29:32 CDT Dangelo arroyo MD [facility]-26456 Level 3 Est. Patient 16:53:02 CDT Checo Conklin MD [facility] CPT-25847 Level 3 Est. Patient 16:37:13 CDT Checo Conklin MD [facility] CPT-39010 Level 3 Est. Patient 16:16:59 CDT Paul Hamlin MD [facility]-94336 Level 3 Est. Patient 14:20:13 CDT Dangelo arroyo MD [facility] CPT-80048 Level 4 Est. Patient 11:29:33 CDT Checo Conklin MD [facility] CPT-27670 Level 3 Est. Patient 17:08:31 CDT Checo Conklin MD [facility] CPT-09697 Level 3 Est. Patient 16:50:42 EEO OFFICER Checo Conklin MD [facility] CPT-03995 Level 4 Est. Patient 09:26:08 EEO OFFICER Checo Conklin MD [facility] CPT-62438 Level 3 Est. Patient 11:37:10 CDT Checo Conklin MD [facility] CPT-79355 Level 4 Est. Patient 14:07:38 CDT Checo Conklin MD [facility] CPT-55128 Level 3 Est. Patient 09:54:41 CDT Checo Conklin MD [facility] CPT-10297 Level 3 Est. Patient 11:10:54 CDT Paul Hamlin MD [facility] CPT-73269 Level 3 Est. Patient 14:16:56 EEO OFFICER Checo Conklin MD [facility] CPT-88941 Level 3 Est. Patient 11:04:11 EEO OFFICER Checo Conklin MD [facility] CPT-89572 Level 3 Est. Patient 17:09:26 CDT Dangelo arroyo MD [facility] CPT-68820 Level 3 Est. Patient 16:54:37 CDT Checo Conklin MD [facility] Procedures Code Procedure Name Date Entry Date Standard Desc ription CPT-16986 UA w micro - LAB USE ONLY 17:06:46 CDT 2015 CPT-96989 BHCG Qual - LAB USE ONLY 17:06:46 CDT 05/06 CPT-51229 CMP - LAB USE ONLY 17:06:46 CDT CPT-24320 CBC with Diff - LAB USE ONLY 17:06:45 CDT 2 CPT-59726 Venipuncture Draw Fee 17:06:45 CDT CPT-LR Lesion Removal 19:53:27 CDT CPT-OV Office Visit 11:31:28 CDT CPT-97829 Tubersol 09:39:29 CDT CPT-J2550 Phenergan 25 mg (Promethazine) 13:59:02 EEO OFFICER CPT-J1885 Toradol 60 mg (Ketorolac) 13:59:02 EEO OFFICER 2012
--- OUTSIDE RECORDS SUMMARY | 2019-09-29 02:19 | XMS REPORT | Clinical Summary ---
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 Tanner Carrillo MD Neoplasm of uncertain behavior of skin Abdominal pain, generalized 789.07 Active Jillina Frazell MOLD WASHER Abdominal pain, generalized Urinary frequency 788.41 Active Jillina Frazell MOLD WASHER Urinary frequency BREAST CANCER ICD-V16.3 Inactive Checo [...] Abscess, skin ICD-682.9 Inactive Checo richey MD ABDOMINAL PAIN RIGHT LOWER QUADRANT ICD-789.03 Inactive Checo Conklin MD Bacterial vaginosis ICD-616.10 Inactive Lenora Conklin MD Medication List Medication Instructions Start Date Stop Date Generic Name NDC Status Provider Patient Instruction BACTRIM DS 800-160 MG TAB 1 tab by mouth twice daily 2 TRIMETHOPRIM-SULFAMETHOXAZOLE 17440690536 No Longer Active Tanner Carrillo MD Active DIFLUCAN 150 MG TAB 1 tablet by mouth qod FLUCO NAZOLE 10255101026 No Longer Active Efren Medel APRN Active CLARITIN 10 MG TAB 1 tablet by mouth daily as needed for allergies LORATADINE 42742962622 Active Jillina Frazell MOLD WASHER Active AZITHROMYCIN 250 MG TABS 2 po qd x 1 day, then 1 po qd x 4 days AZITHROMYCIN 25907290438 No Longer Active Jillina Lizy MAX Active FLAGYL 500 MG TAB 1 tablet by mouth bid METRONI DAZOLE 25521738512 No Longer Active Checo Conklin MD Active FOCALIN XR 10 MG ORAL [id number] 1 po q a.m. DEX METHYLPHENIDATE HCL 53530468527 Active Checo Conklin MD Active MAGNESIUM CITRATE 1.745 GM/30ML ORAL SOLN 150ml po BID PRN C onstipation MAGNESIUM CITRATE 46467401890 No Longer Active Checo Conklin MD Active BACTROBAN 2 % CREAM Apply to affected area BID for up to 10 days MUPIROCIN CALCIUM 51180606453 No Longer Active Checo Conklin MD Active HYDROCODONE-ACETAMINOPHEN 5-325 MG TABS 1 tab by mouth every 6 hours as needed HYDROCODONE-ACETAMINOPHEN 11173562352 No Longer Activ e Checo Conklin MD Active IBUPROFEN 800 MG TABS 1 tab every 8 hours with food 31/03/21 IBUPROFEN 59208650137 No Longer Active Checo Conklin MD Activ e DIFLUCAN 150 MG TAB 1 tablet by mouth if needed, hold until symptoms start FLUCONAZOLE 98055458096 No Longer Active Checo Ortiz MD Active BACTRIM DS 800-160 MG TAB 1 tab by mouth twice daily 2 TRIMETHOPRIM-SULFAMETHOXAZOLE 31379325549 No Longer Active Corry leong LPN Active MIRALAX PACK 1 po qd PRN Constipation POLYETHYL JOEL GLYCOL 3350 70430487155 Active Checo Conklin MD Active HYDROCODONE-ACETAMINOPHEN 5-325 MG TABS 0.5 to 1 tab b y mouth every 6 hours as needed HYDROCODONE-ACETAMINOPHEN 66116317271 No Longer Active Checo Conklin MD Active ONDANSETRON [address] one tablet on tongue and allow to dissolve every 6 hours as needed for vomitting ONDANSETRO N 28768520946 No Longer Active Checo Conklin MD Active COMPRO 25 MG RECTAL SUPP insert or apply one supposit ory rectally as directed every 12 hours as needed for nausea PROCHLORPERA ZINE 01586880435 No Longer Active Checo Conklin MD Active SUMATRIPTAN SUCCINATE 100 MG ORAL TABS Take one PRN for migrane SUMATRIPTAN SUCCINATE 45909973197 No Longer Active Checo Conklin MD Active TRAVEL SICKNESS 25 MG ORAL CHEW chew and swallow one t ablet every 6 hours as needed MECLIZINE HCL 86799178559 No Longer Active Joe Conklin MD Active BUPROPION HCL ER (SR) 100 MG ORAL [id number] take one t ablet by mouth one time daily for one week then take 1 two times daily BUPROPION HCL 58227463040 No Longer Active Checo Conklin MD Activ e TERBINAFINE HCL 250 MG ORAL TABS take one table PO one time abran y TERBINAFINE HCL 14926467522 No Longer Active Checo Conklin MD Active METOCLOPRAMIDE HCL 10 MG ORAL TABS take one PO tid PRN nausea 20 29/12/14 METOCLOPRAMIDE HCL 43364080702 No Longer Active Checo Conklin MD Active DICLOFENAC SODIUM 75 MG TBEC 1 tablet by mouth twice daily P RN Knee pain DICLOFENAC SODIUM 71744357684 No Longer Active Checo Conklin MD Active LAMISIL 250 MG TAB 1 po qd TERBINAFINE HCL 548 24998714 No Longer Active Checo Conklin MD Active REGLAN 10 MG TAB 1 po TID PRN Nausea METOCLOPRA MIDE HCL 02006977614 No Longer Active Checo Conklin MD Active CELEXA 20 MG TABS 1 tablet by mouth daily CITALOPRAM HYDROBROMIDE 72831791814 No Longer Active Checo Conklin MD Activ e AZITHROMYCIN 250 MG TABS 2 po qd x 1 day, then 1 po qd x 4 days AZITHROMYCIN 39133326429 No Longer Active Checo Conklin MD Active HYDROCODONE-ACETAMINOPHEN 5-325 MG TABS 1 po q 6hr PRN Pain 2013 HYDROCODONE-ACETAMINOPHEN 85739139493 No Longer Active Lenora Conklin MD Active PHENAZOPYRIDINE HCL 200 MG TABS take 1 tab po TID for bladder pa in PHENAZOPYRIDINE HCL 69415831833 No Longer Active Checo Joshua Active CIPRO 500 MG TAB 1 tablet by mouth twice daily CIPROFLOXACIN HCL 47122368360 No Longer Active Dangelo Rangel MD Active HYDROCODONE-ACETAMINOPHEN 5-325 MG TABS 1/2 to 1 po q 4 hour s prn cough HYDROCODONE-ACETAMINOPHEN 23733453287 No Longer Activ e Dangelo Rangel MD Active BACTRIM DS 800-160 MG TABS 1 po BID x 7 days 0 SULFAMETHOXAZOLE-TRIMETHOPRIM 58493071268 No Longer Active Checo Conklin MD Active PREDNISONE 20 MG TAB 2 tabs daily for 3 days, 1 t ab daily for 3 days, 1/2 tab daily for 2 days PREDNISONE 50880942655 No Longer Active Checo Conklin MD Active TRIAMCINOLONE ACETONIDE 0.1 % OINT Apply to affected a reas TID for up to 2 weeks TRIAMCINOLONE ACETONIDE 19804967819 No Longer A ctive Checo Conklin MD Active CEFDINIR 300 MG CAPS by mouth twice a day CEFDI JAZZY 77087040353 No Longer Active Dangelo Rangel MD Active BUPROPION HCL (SMOKING DETER) 150 MG [id number] 1 a day for 1 week then 1 twice a day BUPROPION HCL (SMOKING DETER) 26578865219 No Lo nger Active Checo Conklin MD Active SIMVASTATIN 20 MG TABS 1 po qd SIMVASTATIN 9330942635 5 Active Checo Conklin MD Active CHANTIX STARTING MONTH KARTHIK 0.5 MG X 11 & 1 MG X 42 TAB S 0.5mg daily for 3 days, then 0.5mg BID for 4 days, then 1mg BID VARENICLINE TARTRATE 35092343656 No Longer Active Checo Conklin MD Activ e XANAX 0.5 MG TABS 1 po BID PRN anxiety ALPRAZOLAM 04158773500 Active Checo Conklin MD Active CONCERTA 18 MG CR-TABS 1 po q a.m. METHYLPHENID ATE HCL 46549313358 No Longer Active Checo Conklin MD Active AMBIEN 5 MG TAB 1 po qHS PRN Insomnia ZOLPIDEM TARTRATE 72929394603 Active Checo Conklin MD Active TRAZODONE HCL 100 MG TAB 0.5 to 1 po qHS PRN Insomnia TRAZODONE HCL 14178570428 No Longer Active Checo Conklin MD Acti ve FIORICET 325-50-40 MG TAB 1 tablet by mouth four times daily as needed [id number] 81990592180 No Longer Active Checo Conklin MD Active PHENERGAN CREAM* 25mg applied to wrist q6hr PRN Nausea PHENERGAN CREAM* No Longer Active Checo Conklin MD A ctive FLONASE 50 MCG/ACT SUSP 1 spray each nostril am and hs FLUTICASONE PROPIONATE 62761361608 No Longer Active Checo Simms e ANTIPYRINE-BENZOCAINE 5.4-1.4 % SOLN 1-2 drops in affected ear BENZOCAINE-ANTIPYRINE 12876937005 No Longer Active Checo Conklin MD Active CEFDINIR 300 MG CAPS 1 po bid CEFDINIR 19435217 120 No Longer Active Checo Conklin MD Active PREDNISONE 20 MG TAB 2 tabs daily for 3 days, 1 t ab daily for 3 days, 1/2 tab daily for 2 days PREDNISONE 59814919701 No Longer Active Aracelis Conklin MD Active AZITHROMYCIN 250 MG TABS 2 po qd x 1 day, then 1 po qd x 4 days AZITHROMYCIN 82785788943 No Longer Active Checo Conklin MD Active PREDNISONE 20 MG TAB 2 tabs daily for 3 days, 1 t ab daily for 3 days, 1/2 tab daily for 2 days PREDNISONE 49833294048 No Longer Active Checo Conklin MD Active ZITHROMAX Z-KARTHIK 250 MG TABS 2 today, then 1 daily for 4 days 201 09/18/28 AZITHROMYCIN 65608658714 No Longer Active Paul Hamlin MD Active FOCALIN XR 10 MG [id number] 1 po q a.m. D EXMETHYLPHENIDATE HCL 90082438562 No Longer Active Paul Hamlin MD Activ e PERCOCET 10-325 MG TABS 1 tablet every 6 hours as needed for pain OXYCODONE-ACETAMINOPHEN 39509889776 No Longer Active Paul Hamlin MD Active LORTAB 5 5-500 MG TABS 1/2 to 1 tablet by mouth flaquito ry 4 hours as needed for pain HYDROCODONE-ACETAMINOPHEN 06427813455 No Longer Active Checo Conklin MD Active FOCALIN XR 15 MG [id number] 1 po q a.m. D EXMETHYLPHENIDATE HCL 14595757625 No Longer Active Checo Conklin MD Activ e ZOFRAN ODT 4 MG TBDP 1 po q6hr PRN Nausea ONDAN SETRON 10849077994 No Longer Active Checo Conklin MD Active PERCOCET 5-325 MG TABS 1 tablet by mouth every 6 hours as needed OXYCODONE-ACETAMINOPHEN 77793010267 No Longer Active Checo Conklin MD Active PYRIDIUM 200 MG TABS take 1 tab po TID prn urinary pain. 0 PHENAZOPYRIDINE HCL 68321838705 No Longer Active Checo Conklin MD Active FLUCONAZOLE 150 MG TABS take 1 tab po qday once 04/06 FLUCONAZOLE 73684531642 No Longer Active Dangelo Rangel MD Acti ve CIPRO 500 MG TAB 1 tablet by mouth twice daily CIPROFLOXACIN HCL 14636265930 No Longer Active Dangelo Rangel MD Active PYRIDIUM 200 MG TABS take 1 tab po TID prn urinary pain. 0 PYRIDIUM 200 MG TABS 5189119 PHENAZOPYRIDINE HCL Inactive PERCOCET 5-325 MG TABS 1 tablet by mouth every 6 hours as needed PERCOCET 5-325 MG TABS 0800317 OXYCODONE-ACETAMINOPHEN I nactive ZOFRAN ODT 4 MG TBDP 1 po q6hr PRN Nausea ZOFRAN ODT 4 MG TBDP 149267 ONDANSETRON Inactive FOCALIN XR 15 MG [id number] 1 po q a.m. F OCALIN XR 15 MG [id number] DEXMETHYLPHENIDATE HCL Inactive LORTAB 5 5-500 MG TABS 1/2 to 1 tablet by mouth flaquito ry 4 hours as needed for pain LORTAB 5 5-500 MG TABS HYDROCODONE-A CETAMINOPHEN Inactive PERCOCET 10-325 MG TABS 1 tablet every 6 hours as needed for pain PERCOCET 10-325 MG TABS 1977818 OXYCODONE-ACETAMINOPHEN Inactive FOCALIN XR 10 MG [id number] 1 po q a.m. F OCALIN XR 10 MG [id number] DEXMETHYLPHENIDATE HCL Inactive CEFDINIR 300 MG CAPS 1 po bid CEFDINIR 300 MG CAPS 20 0346 CEFDINIR Inactive ANTIPYRINE-BENZOCAINE 5.4-1.4 % SOLN 1-2 drops in affected ear ANTIPYRINE-BENZOCAINE 5.4-1.4 % SOLN 527665 BENZOCAINE-ANTIPYRINE I nactive FLONASE 50 MCG/ACT SUSP [...] PRN Insomnia TRAZODONE HCL 100 MG TAB 040159 TRAZODONE HCL Inactive CONCERTA 18 MG CR-TABS [...] s prn cough HYDROCODONE-ACETAMINOPHEN 5-325 MG TABS 432463 HYDROCODONE-ACETAMINOPHEN Inactive PHENAZOPYRIDINE HCL 200 MG TABS take 1 tab po TID for bladder pa in PHENAZOPYRIDINE HCL 200 MG TABS 4924581 PHENAZOPYRIDINE HCL Inactive HYDROCODONE-ACETAMINOPHEN 5-325 MG TABS 1 po q 6hr PRN Pain 2013 HYDROCODONE-ACETAMINOPHEN 5-325 MG TABS 348896 HYDROCODONE-ACETAMINOPHEN Inactive CELEXA 20 MG TABS 1 tablet by mouth daily CELEXA 20 MG TABS 628904 CITALOPRAM HYDROBROMIDE Inactive REGLAN 10 MG TAB 1 po TID PRN Nausea REGLAN 10 MG TAB 094785 METOCLOPRAMIDE HCL Inactive LAMISIL 250 MG TAB 1 po qd LAMISIL 250 MG TAB 911979 TERBINAFINE HCL Inactive DICLOFENAC SODIUM 75 MG TBEC 1 tablet by mouth twice daily P RN Knee pain DICLOFENAC SODIUM 75 MG TBEC 248223 DICLOFENAC S ODIUM Inactive METOCLOPRAMIDE HCL 10 MG ORAL TABS take one PO tid PRN nausea 20 29/12/14 METOCLOPRAMIDE HCL 10 MG ORAL TABS 185595 METOCLOPRAMID E HCL Inactive TERBINAFINE HCL 250 MG ORAL TABS take one table PO one time abran y TERBINAFINE HCL 250 MG ORAL TABS 604971 TERBINAFINE HCL Inactive BUPROPION HCL ER (SR) 100 MG ORAL [id number] take one t ablet by mouth one time daily for one week then take 1 two times daily BUPROPION HCL ER (SR) 100 MG ORAL [id number] BUPROPION HCL Inacti ve TRAVEL SICKNESS 25 MG ORAL CHEW chew and swallow one t ablet every 6 hours as needed TRAVEL SICKNESS 25 MG ORAL CHEW 029571 MECLIZINE HCL Inactive SUMATRIPTAN SUCCINATE 100 MG ORAL TABS Take one PRN for migrane SUMATRIPTAN SUCCINATE 100 MG ORAL TABS 180648 SUMATRIPT AN SUCCINATE Inactive COMPRO 25 MG RECTAL SUPP insert or apply one supposit ory rectally as directed every 12 hours as needed for nausea COMP RO 25 MG RECTAL SUPP 386107 PROCHLORPERAZINE Inactive ONDANSETRON [address] one tablet on tongue and allow to dissolve every 6 hours as needed for vomitting ON DANSETRON 8 MG ORAL TBDP 682547 ONDANSETRON Inactive HYDROCODONE-ACETAMINOPHEN 5-325 MG TABS 0.5 to 1 tab b y mouth every 6 hours as needed HYDROCODONE-ACETAMINOPHEN 5-325 MG TABS 8 04018 HYDROCODONE-ACETAMINOPHEN Inactive BACTRIM DS 800-160 MG TAB 1 tab by mouth twice daily 2 BACTRIM DS 800-160 MG TAB 19820918 TRIMETHOPRIM-SULFAMETHOXAZOLE Inac tive DIFLUCAN 150 MG TAB 1 tablet by mouth if needed, hold until symptoms start DIFLUCAN 150 MG TAB 19760325 FLUCONAZOLE Inactive IBUPROFEN 800 MG TABS 1 tab every 8 hours with food 20 31/03/21 IBUPROFEN 800 MG TABS 756875 IBUPROFEN Inactive HYDROCODONE-ACETAMINOPHEN 5-325 MG TABS 1 tab by mouth every 6 hours as needed HYDROCODONE-ACETAMINOPHEN 5-325 MG TABS 504224 HYDROCODONE-ACETAMINOPHEN Inactive BACTROBAN 2 % CREAM Apply to affected area BID for up to 10 days BACTROBAN 2 % CREAM 120995 MUPIROCIN CALCIUM Inactive MAGNESIUM CITRATE 1.745 GM/30ML ORAL SOLN 150ml po BID PRN C onstipation MAGNESIUM CITRATE 1.745 GM/30ML ORAL SOLN 920822 0 MAGNESIUM CITRATE Inactive DIFLUCAN 150 MG TAB 1 tablet by mouth qod DIFLUCAN 150 MG TAB 732937 FLUCONAZOLE Inactive BACTRIM DS 800-160 MG TAB 1 tab by mouth twice daily 2 BACTRIM DS 800-160 MG TAB 602034 TRIMETHOPRIM-SULFAMETHOXAZOLE Inac tive CIPRO 500 MG TAB 1 tablet by mouth twice daily CIPRO 500 MG TAB 549352 CIPROFLOXACIN HCL Inactive FLUCONAZOLE 150 MG TABS take 1 tab po qday once 04/06 FLUCONAZOLE 150 MG TABS 19760325 FLUCONAZOLE Inactive ZITHROMAX Z-KARTHIK 250 MG TABS 2 today, then 1 daily for 4 days 201 09/18/28 ZITHROMAX Z-KARTHIK 250 MG TABS 0150523 AZITHROMYCIN Inac tive PREDNISONE 20 MG TAB 2 tabs daily for 3 days, 1 t ab daily for 3 days, 1/2 tab daily for 2 days PREDNISONE 20 MG TAB 976648 PREDNISON E Inactive AZITHROMYCIN 250 MG TABS 2 po qd x 1 day, then 1 po qd x 4 days AZITHROMYCIN 250 MG TABS 0965105 AZITHROMYCIN Inactiv e PREDNISONE 20 MG TAB 2 tabs daily for 3 days, 1 t ab daily for 3 days, 1/2 tab daily for 2 days PREDNISONE 20 MG TAB 435242 PREDNISON E Inactive CEFDINIR 300 MG CAPS by mouth twice a day CEFDINIR 300 MG CAPS 343215 CEFDINIR Inactive TRIAMCINOLONE ACETONIDE 0.1 % OINT Apply to affected a reas TID for up to 2 weeks TRIAMCINOLONE ACETONIDE 0.1 % OINT 583298 6 TRIAMCINOLONE ACETONIDE Inactive PREDNISONE 20 MG TAB 2 tabs daily for 3 days, 1 t ab daily for 3 days, 1/2 tab daily for 2 days PREDNISONE 20 MG TAB 277959 PREDNISON E Inactive BACTRIM DS 800-160 MG TABS 1 po BID x 7 days 0 BACTRIM DS 800-160 MG TABS 858422 SULFAMETHOXAZOLE-TRIMETHOPRIM Inactive CIPRO 500 MG TAB 1 tablet by mouth twice daily CIPRO 500 MG TAB 182975 CIPROFLOXACIN HCL Inactive AZITHROMYCIN 250 MG TABS 2 po qd x 1 day, then 1 po qd x 4 days AZITHROMYCIN 250 MG TABS 1621268 AZITHROMYCIN Inactiv e FLAGYL 500 MG TAB 1 tablet by mouth bid FLAGYL 500 MG TAB 952852 METRONIDAZOLE Inactive AZITHROMYCIN 250 MG TABS 2 po qd x 1 day, then 1 po qd x 4 days AZITHROMYCIN 250 MG TABS 2356968 AZITHROMYCIN Inactiv e Immunizations Vaccine Administration Date [...] ... - Chemistry sodium, serum 141 mmol/L 141-948 6971/01/26 carbon dioxide, venous blood 30.0 mmol/L 21.0-32 .0 potassium, serum 4.0 mmol/L 3.5-5.2 chloride, serum 105 mmol/L 98-107 blood glucose 85 mg/dL 65-110 urea nitrogen, blood 9 mg/dL 7-18 creatinine, serum 0.66 mg/dL 0.55-1.30 alanine aminotransferase (SGPT), serum 31 U/L 12-78 aspartate aminotransferase (SGOT), serum 21 U/L 15-37 calcium, serum 8.2 mg/dL 8.5-10.1 bilirubin, serum, total 1.10 mg/dL 0.00-1.00 cholesterol, serum 178 mg/dL 930-375 6253/01/26 triglyceride, serum, fasting 149 mg/dL 30-200 HDL [...] ... - Chemistry sodium, serum 137 mmol/L 133-189 4132/05/27 carbon dioxide, venous blood 29.1 mmol/L 21.0-32 [...] 5.0-8.5 Encounters Code Encounter Date Provider Facility CPT-05275 Level 3 Est. Patient 09:11:49 CDT Efren almendarez [facility] [place] CPT-26109 Level 2 Est. Patient 19:53:27 CDT Tanner hill MD -[id number] Level 3 Est. Patient 09:15:34 CDT Efren almendarez [facility]-88582 Level 3 Est. 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 Patient 17:10:53 CDT Checo Conklin MD [facility] CPT-16426 Level 3 Est. Patient 15:56:22 CDT Checo Conklin MD [facility] CPT-72213 Level 3 Est. Patient 15:29:07 CDT Checo Conklin MD [facility] CPT-15211 Level 3 Est. Patient 14:38:41 CDT Checo Conklin MD [facility] CPT-32234 Level 3 Est. 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 Patient 12:29:32 CDT Dangelo arroyo MD [facility] CPT-15781 Level 3 Est. Patient 16:53:02 CDT Checo Conklin MD [facility] CPT-97294 Level 3 Est. Patient 16:37:13 CDT Checo Conklin MD [facility] CPT-77171 Level 3 Est. Patient 16:16:59 CDT Paul Hamlin MD [facility] CPT-42231 Level 3 Est. Patient 14:20:13 CDT Dangelo arroyo MD [facility] CPT-28490 Level 4 Est. Patient 11:29:33 CDT Checo Conklin MD [facility] CPT-15063 Level 3 Est. Patient 17:08:31 CDT Checo Conklin MD [facility] CPT-94835 Level 3 Est. 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 Patient 11:37:10 CDT Checo Conklin MD [facility] CPT-02366 Level 4 Est. Patient 14:07:38 CDT Checo Conklin MD [facility] CPT-72597 Level 3 Est. Patient 09:54:41 CDT Checo Conklin MD [facility] CPT-59504 Level 3 Est. Patient 11:10:54 CDT Paul Hamlin MD [facility] CPT-77743 Level 3 Est. 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 Patient 17:09:26 CDT Dangelo arroyo MD [facility] CPT-26624 Level 3 Est. 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
--- OUTSIDE RECORDS SUMMARY | 2019-09-29 02:19 | XMS REPORT | Clinical Summary ---
Author Author Admin, Bethany Gonzales Organization [facility] Address Unknown Phone Unavailable Allergies, Adverse [...] Conklin MD PHARYNGITIS ICD-462 Ozzy Conklin MD ABDOMINAL PAIN RIGHT LOWER QUADRANT ICD-789.03 Ozzy Conklin MD Hypoglycemia, unspecified ICD-251.2 Ozzy Conklin MD Insomnia ICD-780.52 Inactive Checo Joshua Breast mass, right ICD-611.72 Inactive Checo Conklin MD OTITIS MEDIA-RIGHT ICD-382.9 Ozzy Conklin MD Onychomycosis, toenails ICD-110.1 Inactive Aracelis Conklin MD Insect bite ICD-919.4 Inactive Checo Conklin MD Carbuncle/furuncle NOS ICD-680.9 Inactive Hilaria Conklin MD Mastalgia ICD-611.71 Inactive Checo Joshua Sinusitis ICD-461.9 Ozzy Conklin MD Knee pain, right ICD-719.46 Inactive [...] MD Urinary frequency ICD-788.41 Ozzy Conklin MD Pharyngitis ICD-462 Ozzy Conklin MD Repeated falls ICD-781.99 Ozzy ngo MD Abdominal pain, generalized ICD-789.07 Inactive Checo Conklin MD Nausea ICD-787.02 Ozzy Conklin MD 201 02/15/12 Cough ICD-786.2 Ozzy Conklin MD 2016 Sinusitis, acute ICD-461.9 Ozzy Ortiz MD Medication List Medication Instructions Start Date Stop Date Generic Name NDC Status Provider Patient Instruction IBUPROFEN 800 MG ORAL TABLET 1 tab every 8 hours as needed for p ain IBUPROFEN [id number] Active Dangelo Rangel MD Acti ve PAROXETINE HCL 40 MG ORAL TABLET 1 po qd PAR OXETINE HCL 89297212207 Active Checo Conklin MD Active MIRALAX ORAL POWDER 8.5 to 17g po qd PRN Constipation POLYETHYLENE GLYCOL 3350 34502222406 No Longer Active Checo Conklin MD Active PROTONIX 40 MG ORAL TABLET DELAYED RELEASE 1 pill by [facility] daily, for acid reflux PANTOPRAZOLE SODIUM 18781169834 No Longer Activ e Corry Méndez LPN Active FLAGYL 500 MG ORAL TABLET 1 tablet by mouth bid 08/29 METRONIDAZOLE 56453415434 No Longer Active Corry Méndez LPN Active CLARITHROMYCIN 500 MG ORAL TABLET 1 tab po BID x 14 days CLARITHROMYCIN 13559012428 No Longer Active Corry Méndez LPN Active AMOXICILLIN 500 MG ORAL CAPSULE 2 po BID x 14 days for H. Pylori AMOXICILLIN 01666064786 No Longer Active Corry Méndez LPN Active FLUTICASONE PROPIONATE 50 MCG/ACT NASAL SUSPENSION 2 s prays/nostril qd PRN Congestion/Allergies FLUTICASONE PROPIONATE 5225596752 9 No Longer Active Checo Conklin MD Active AMOXICILLIN 500 MG ORAL CAPSULE 2 po BID x 10 days 201 01/15/27 AMOXICILLIN 68874477789 No Longer Active Checo Conklin MD Activ e CLARITIN 10 MG ORAL TABLET 1 tablet by mouth daily as needed for allergies LORATADINE 24241391915 No Longer Active Checo Ortiz MD Active BACTRIM DS 800-160 MG ORAL TABLET 1 tab by mouth twice daily 201 12/19/26 TRIMETHOPRIM-SULFAMETHOXAZOLE 89222633833 No Longer Active Ragini Carrillo MD Active DIFLUCAN 150 MG ORAL TABLET 1 tablet by mouth qod 2015 FLUCONAZOLE 63475213159 No Longer Active Efren Medel PLATING INSPECTOR Act mike AZITHROMYCIN 250 MG ORAL TABLET 2 po qd x 1 day, then 1 po q d x 4 days AZITHROMYCIN 32573483267 No Longer Active Efren flores PLATING INSPECTOR Active FLAGYL 500 MG ORAL TABLET 1 tablet by mouth bid 04/13 METRONIDAZOLE 36259682036 No Longer Active Checo Conklin MD Acti ve FOCALIN XR 10 MG ORAL CAPSULE EXTENDED RELEASE 24 HOUR 1 po q a.m. DEXMETHYLPHENIDATE HCL 08891356771 Active Checo Conklin MD Active MAGNESIUM CITRATE 1.745 GM/30ML ORAL SOLUTION 150ml po BID P RN Constipation MAGNESIUM CITRATE 91074657950 No Longer Active Checo Conklin MD Active BACTROBAN 2 % EXTERNAL CREAM Apply to affected area BID for up to 10 days MUPIROCIN CALCIUM 18342532196 No Longer Active Checo Conklin MD Active HYDROCODONE-ACETAMINOPHEN 5-325 MG ORAL TABLET 1 tab b y mouth every 6 hours as needed HYDROCODONE-ACETAMINOPHEN 27595453328 No Longer Active Checo Conklin MD Active IBUPROFEN 800 MG ORAL TABLET 1 tab every 8 hours with food 03/20 IBUPROFEN 87997537646 No Longer Active Checo Conklin MD Active DIFLUCAN 150 MG ORAL TABLET 1 tablet by mouth if neede d, hold until symptoms start FLUCONAZOLE 44009173803 No Longer Active Checo Conklin MD Active BACTRIM DS 800-160 MG ORAL TABLET 1 tab by mouth twice daily 201 11/23/03 TRIMETHOPRIM-SULFAMETHOXAZOLE 35469235635 No Longer Active K bernice Méndez, CASTING MACHINE CONTROL BOARD OPERATOR Active HYDROCODONE-ACETAMINOPHEN 5-325 MG ORAL TABLET 0.5 to 1 tab by mouth every 6 hours as needed HYDROCODONE-ACETAMINOPHEN 82743699346 No Longer Active Checo Conklin MD Active ONDANSETRON 8 MG ORAL TABLET DISINTEGRATING place one tablet on tongue and allow to dissolve every 6 hours as needed for vomitting ONDANSETRON 56790138821 No Longer Active Checo Conklin MD Activ e COMPRO 25 MG RECTAL SUPPOSITORY insert or apply one garza ppository rectally as directed every 12 hours as needed for nausea PROCHLORPERAZINE 00564186697 No Longer Active Checo Conklin MD A ctive SUMATRIPTAN SUCCINATE 100 MG ORAL TABLET Take one PRN for migran e SUMATRIPTAN SUCCINATE 08371763457 No Longer Active Checo Conklin MD Active TRAVEL SICKNESS 25 MG ORAL TABLET CHEWABLE chew and sw allow one tablet every 6 hours as needed MECLIZINE HCL 35861319682 No Longer A ctive Checo Conklin MD Active BUPROPION HCL ER (SR) 100 MG ORAL TABLET EXTENDED RELE ASE 12 HOUR take one tablet by mouth one time daily for one week then take 1 two times daily BUPROPION HCL 65515188659 No Longer Active Checo gallagher MD Active TERBINAFINE HCL 250 MG ORAL TABLET take one table PO one time da moises TERBINAFINE HCL 13047241765 No Longer Active Checo Conklin MD Active METOCLOPRAMIDE HCL 10 MG ORAL TABLET take one PO tid PRN nausea METOCLOPRAMIDE HCL 07903954488 No Longer Active Checo Conklin MD Active DICLOFENAC SODIUM 75 MG ORAL TABLET DELAYED RELEASE 1 tablet by mouth twice daily PRN Knee pain DICLOFENAC SODIUM 09877079971 No Longer Active Checo Conklin MD Active LAMISIL 250 MG ORAL TABLET 1 po qd TERBINAFI NE HCL 60944883625 No Longer Active Checo Conklin MD Active REGLAN 10 MG ORAL TABLET 1 po TID PRN Nausea 3 METOCLOPRAMIDE HCL 18351382402 No Longer Active Checo Conklin MD Active CELEXA 20 MG ORAL TABLET 1 tablet by mouth daily 09/26 CITALOPRAM HYDROBROMIDE 92407045201 No Longer Active Checo Conklin MD Active AZITHROMYCIN 250 MG ORAL TABLET 2 po qd x 1 day, then 1 po q d x 4 days AZITHROMYCIN 78546266884 No Longer Active Checo Ortiz MD Active HYDROCODONE-ACETAMINOPHEN 5-325 MG ORAL TABLET 1 po q 6hr PRN Pa in HYDROCODONE-ACETAMINOPHEN 84722427695 No Longer Active Lenora Conklin MD Active PHENAZOPYRIDINE HCL 200 MG ORAL TABLET take 1 tab po TID for bladder pain PHENAZOPYRIDINE HCL 73790410303 No Longer Active Joe Conklin MD Active CIPRO 500 MG ORAL TABLET 1 tablet by mouth twice daily CIPROFLOXACIN HCL 92566395466 No Longer Active Dangelo Rangel MD Active HYDROCODONE-ACETAMINOPHEN 5-325 MG ORAL TABLET 1/2 to 1 po q 4 hours prn cough HYDROCODONE-ACETAMINOPHEN 66034577425 No Longer Activ e Dangelo Rangel MD Active BACTRIM DS 800-160 MG ORAL TABLET 1 po BID x 7 days 29/04/10 SULFAMETHOXAZOLE-TRIMETHOPRIM 26347596497 No Longer Active Checo Conklin MD Active PREDNISONE 20 MG ORAL TABLET 2 tabs daily for 3 days, 1 tab daily for 3 days, 1/2 tab daily for 2 days PREDNISONE 20352835648 No Longer Active Checo Conklin MD Active TRIAMCINOLONE ACETONIDE 0.1 % EXTERNAL OINTMENT Apply to affected areas TID for up to 2 weeks TRIAMCINOLONE ACETONIDE 61516603896 No Longer Active Checo Conklin MD Active CEFDINIR 300 MG ORAL CAPSULE by mouth twice a day 2013 CEFDINIR 92343276350 No Longer Active Dangelo Rangel MD Acti ve BUPROPION HCL ER (SMOKING DET) 150 MG ORAL TABLET EXTE NDED RELEASE 12 HOUR 1 a day for 1 week then 1 twice a day BUPROPION HCL (SMOKING DETER) 63990911240 No Longer Active Checo Conklin MD Active SIMVASTATIN 20 MG ORAL TABLET 1 po qd SIMVASTAT IN 54740683435 Active Checo Conklin MD Active CHANTIX STARTING MONTH KARTHIK 0.5 MG X 11 & 1 MG X 42 ORA L TABLET 0.5mg daily for 3 days, then 0.5mg BID for 4 days, then 1mg BID VARENICLINE TARTRATE 03821397126 No Longer Active Checo Conklin MD Activ e XANAX 0.5 MG ORAL TABLET 1 po BID PRN anxiety A LPRAZOLAM 70970392713 Active Checo Conklin MD Active CONCERTA 18 MG ORAL TABLET EXTENDED RELEASE 1 po q a.m. METHYLPHENIDATE HCL 25779018064 No Longer Active Checo Conklin MD Active AMBIEN 5 MG ORAL TABLET 1 po qHS PRN Insomnia Z OLPIDEM TARTRATE 04990970485 Active Checo Conklin MD Active TRAZODONE HCL 100 MG ORAL TABLET 0.5 to 1 po qHS PRN Insomnia 20 30/07/08 TRAZODONE HCL 51008594993 No Longer Active Checo Conklin MD Active FIORICET 325-50-40 MG TAB 1 tablet by mouth four times daily as needed [id number] 75584403004 No Longer Active Checo Conklin MD Active PHENERGAN CREAM* 25mg applied to wrist q6hr PRN Nausea PHENERGAN CREAM* No Longer Active Checo Gonzales ctive FLONASE 50 MCG/ACT NASAL SUSPENSION 1 spray each nostril am and hs FLUTICASONE PROPIONATE 66109801673 No Longer Active Checo Conklin MD Active ANTIPYRINE-BENZOCAINE 5.4-1.4 % OTIC SOLUTION 1-2 drops in affec yohannes ear BENZOCAINE-ANTIPYRINE 87392362148 No Longer Active Checo Conklin MD Active CEFDINIR 300 MG ORAL CAPSULE 1 po bid CEFDINIR 33096985956 No Longer Active Checo Conklin MD Active PREDNISONE 20 MG ORAL TABLET 2 tabs daily for 3 days, 1 tab daily for 3 days, 1/2 tab daily for 2 days PREDNISONE 36914563239 No Longer Active Checo Conklin MD Active AZITHROMYCIN 250 MG ORAL TABLET 2 po qd x 1 day, then 1 po q d x 4 days AZITHROMYCIN 16015546838 No Longer Active Checo Ortiz MD Active PREDNISONE 20 MG ORAL TABLET 2 tabs daily for 3 days, 1 tab daily for 3 days, 1/2 tab daily for 2 days PREDNISONE 92723045903 No Longer Active Checo Conklin MD Active ZITHROMAX Z-KARTHIK 250 MG ORAL TABLET 2 today, then 1 daily for 4 d ays AZITHROMYCIN 88753802681 No Longer Active Paul Hamlin MD Active FOCALIN XR 10 MG ORAL CAPSULE EXTENDED RELEASE 24 HOUR 1 po q a. m. DEXMETHYLPHENIDATE HCL 02885892330 No Longer Active Paul Hamlin MD Active PERCOCET 10-325 MG ORAL TABLET 1 tablet every 6 hours as needed for pain OXYCODONE-ACETAMINOPHEN 35683225391 No Longer Active Paul Hamlin MD Active LORTAB 5-500 MG ORAL TABLET 1/2 to 1 tablet by mouth e very 4 hours as needed for pain HYDROCODONE-ACETAMINOPHEN 37124443369 No Longer Active Checo Conklin MD Active FOCALIN XR 15 MG ORAL CAPSULE EXTENDED RELEASE 24 HOUR 1 po q a. m. DEXMETHYLPHENIDATE HCL 96432604358 No Longer Active Checo Conklin MD Active ZOFRAN ODT 4 MG ORAL TABLET DISINTEGRATING 1 po q6hr PRN Nausea ONDANSETRON 90407596489 No Longer Active Checo Conklin MD Active PERCOCET 5-325 MG ORAL TABLET 1 tablet by mouth every 6 hour s as needed OXYCODONE-ACETAMINOPHEN 22591657986 No Longer Active Checo Conklin MD Active PYRIDIUM 200 MG ORAL TABLET take 1 tab po TID prn urinary pain. PHENAZOPYRIDINE HCL 66738364688 No Longer Active Checo Joshua Active FLUCONAZOLE 150 MG ORAL TABLET take 1 tab po qday once FLUCONAZOLE 21838915037 No Longer Active Dangelo Rangel MD Acti ve CIPRO 500 MG ORAL TABLET 1 tablet by mouth twice daily CIPROFLOXACIN HCL 92063061693 No Longer Active Dangelo Rangel MD Active PYRIDIUM 200 MG ORAL TABLET take 1 tab po TID prn urinary pain. PYRIDIUM 200 MG ORAL TABLET 1979294 PHENAZOPYRIDINE HCL Inactive PERCOCET 5-325 MG ORAL TABLET 1 tablet by mouth every 6 hour s as needed PERCOCET 5-325 MG ORAL TABLET 9480017 OXYCODONE-ACETAMINOPHEN Inactive ZOFRAN ODT 4 MG ORAL TABLET DISINTEGRATING 1 po q6hr PRN Nausea ZOFRAN ODT 4 MG ORAL TABLET DISINTEGRATING 251256 ONDAN SETRON Inactive FOCALIN XR 15 MG [...] for pain PERCOCET 10-325 MG ORAL TABLET 5780235 OXYCODONE-ACETAMI NOPHEN Inactive FOCALIN XR 10 MG ORAL CAPSULE EXTENDED RELEASE 24 HOUR 1 po q a. m. FOCALIN XR 10 MG ORAL CAPSULE EXTENDED RELEASE 24 HOUR DEXMETHYLPHENIDATE HCL Inactive CEFDINIR 300 MG ORAL CAPSULE 1 po bid CEFDINI R 300 MG ORAL CAPSULE 348319 CEFDINIR Inactive ANTIPYRINE-BENZOCAINE 5.4-1.4 % OTIC SOLUTION 1-2 drops in affec yohannes ear ANTIPYRINE-BENZOCAINE 5.4-1.4 % OTIC SOLUTION 063081 BENZOCAINE-ANTIPYRINE Inactive FLONASE 50 MCG/ACT NASAL SUSPENSION 1 spray each nostril am and hs FLONASE 50 MCG/ACT NASAL SUSPENSION 4443285 FLUTICASONE PROPIONATE I nactive PHENERGAN CREAM* 25mg applied to wrist q6hr PRN Nausea PHENERGAN CREAM* Inactive FIORICET 325-50-40 MG TAB 1 tablet by mouth four times daily as needed FIORICET 325-50-40 MG TAB ACETAMINOPHEN-C AFF-BUTALBITAL Inactive TRAZODONE HCL 100 MG ORAL TABLET 0.5 to 1 po qHS PRN Insomnia 20 30/07/08 TRAZODONE HCL 100 MG ORAL TABLET 696244 TRAZODONE HCL Inactive CONCERTA 18 MG ORAL [...] cough HYDROCODONE-ACETAMINOPHEN 5-325 MG ORAL TABLET 8 30566 HYDROCODONE-ACETAMINOPHEN Inactive PHENAZOPYRIDINE HCL 200 MG ORAL TABLET take 1 tab po TID for bladder pain PHENAZOPYRIDINE HCL 200 MG ORAL TABLET 1229722 PHENAZOPYRIDINE HCL Inactive HYDROCODONE-ACETAMINOPHEN 5-325 MG ORAL TABLET 1 po q 6hr PRN Pa in HYDROCODONE-ACETAMINOPHEN 5-325 MG ORAL TABLET 661357 HYDROCODONE-ACETAMINOPHEN Inactive CELEXA 20 MG ORAL TABLET 1 tablet by mouth daily 09/26 CELEXA 20 MG ORAL TABLET 079107 CITALOPRAM HYDROBROMIDE Inactive REGLAN 10 MG ORAL TABLET 1 po TID PRN Nausea 3 REGLAN 10 MG ORAL TABLET 350400 METOCLOPRAMIDE HCL Inactive LAMISIL 250 MG ORAL TABLET 1 po qd L AMISIL 250 MG ORAL TABLET 403803 TERBINAFINE HCL Inactive DICLOFENAC SODIUM 75 MG ORAL TABLET DELAYED RELEASE 1 tablet by mouth twice daily PRN Knee pain DICLOFENAC SODIUM 75 MG ORAL TABLET DELAYED RELEASE 398455 DICLOFENAC SODIUM Inactive METOCLOPRAMIDE HCL 10 MG ORAL TABLET take one PO tid PRN nausea METOCLOPRAMIDE HCL 10 MG ORAL TABLET 882932 METOCLOPRAM ZACH HCL Inactive TERBINAFINE HCL 250 MG ORAL TABLET take one table PO one time da moises TERBINAFINE HCL 250 MG ORAL TABLET 008374 TERBINAFINE H CL Inactive BUPROPION HCL ER [...] SICKNESS 25 M G ORAL TABLET CHEWABLE 567861 MECLIZINE HCL Inactive SUMATRIPTAN SUCCINATE 100 MG ORAL TABLET Take one PRN for migran e SUMATRIPTAN SUCCINATE 100 MG ORAL TABLET 130022 SUMATRIPTAN SUCCINATE Inactive COMPRO 25 MG RECTAL SUPPOSITORY insert or apply one garza ppository rectally as directed every 12 hours as needed for nausea COMPRO 25 MG RECTAL SUPPOSITORY 806089 PROCHLORPERAZINE Inactive ONDANSETRON 8 MG ORAL TABLET DISINTEGRATING place one tablet on tongue and allow to dissolve every 6 hours as needed for vomitting ONDANSETRON 8 MG ORAL TABLET DISINTEGRATING 215860 ONDANSETRON Inactive HYDROCODONE-ACETAMINOPHEN 5-325 MG ORAL TABLET 0.5 to 1 tab by mouth every 6 hours as needed HYDROCODONE-ACETAMIN OPHEN 5-325 MG ORAL TABLET 980178 HYDROCODONE-ACETAMINOPHEN Inactive BACTRIM DS 800-160 MG ORAL TABLET 1 tab by mouth twice daily 201 11/23/03 BACTRIM DS 800-160 MG ORAL TABLET 19820918 TRIMETHOPRIM-SULFAMETHOXAZOLE Inactive DIFLUCAN 150 MG ORAL TABLET 1 tablet by mouth if neede d, hold until symptoms start DIFLUCAN 150 MG ORAL TABLET 409484 FLUCONAZ OLE Inactive IBUPROFEN 800 MG ORAL TABLET 1 tab every 8 hours with food 03/20 IBUPROFEN 800 MG ORAL TABLET 479254 IBUPROFEN [place] ctive HYDROCODONE-ACETAMINOPHEN 5-325 MG ORAL TABLET 1 tab b y mouth every 6 hours as needed HYDROCODONE-ACETAMINOPHEN 5-325 MG ORAL TABLET 507220 HYDROCODONE-ACETAMINOPHEN Inactive BACTROBAN 2 % EXTERNAL CREAM Apply to affected area BID for up to 10 days BACTROBAN 2 % EXTERNAL CREAM 299575 MUPIROCIN CA LCIUM Inactive MAGNESIUM CITRATE 1.745 GM/30ML ORAL SOLUTION 150ml po BID P RN Constipation MAGNESIUM CITRATE 1.745 GM/30ML ORAL SOLUTION 10 33617 MAGNESIUM CITRATE Inactive DIFLUCAN 150 MG ORAL TABLET 1 tablet by mouth qod 2015 DIFLUCAN 150 MG ORAL TABLET 722107 FLUCONAZOLE Inactive BACTRIM DS 800-160 MG ORAL TABLET 1 tab by mouth twice daily 201 12/19/26 BACTRIM DS 800-160 MG ORAL TABLET 626727 TRIMETHOPRIM-SULFAMETHOXAZOLE Inactive CLARITIN 10 MG ORAL TABLET 1 tablet by mouth daily as needed for allergies CLARITIN 10 MG ORAL TABLET 766976 LORATADINE I nactive FLUTICASONE PROPIONATE 50 MCG/ACT NASAL SUSPENSION 2 s prays/nostril qd PRN Congestion/Allergies FLUTICASONE PROPION ATE 50 MCG/ACT NASAL SUSPENSION 5166850 FLUTICASONE PROPIONATE Inactive MIRALAX ORAL POWDER 8.5 to 17g po qd PRN Constipation MIRALAX ORAL POWDER 377472 POLYETHYLENE GLYCOL 3350 Inactive CIPRO 500 MG ORAL TABLET 1 tablet by mouth twice daily CIPRO 500 MG ORAL TABLET 464775 CIPROFLOXACIN HCL Inactive FLUCONAZOLE 150 MG ORAL TABLET take 1 tab po qday once FLUCONAZOLE 150 MG ORAL TABLET 628775 FLUCONAZOLE Inactive ZITHROMAX Z-KARTHIK 250 MG ORAL TABLET 2 today, then 1 daily for 4 d ays ZITHROMAX Z-KARTHIK 250 MG ORAL TABLET 260980 AZITHROMYCIN Inactive PREDNISONE 20 MG ORAL TABLET 2 tabs daily for 3 days, 1 tab daily for 3 days, 1/2 tab daily for 2 days PREDNISONE 20 MG ORAL T ABLET 548475 PREDNISONE Inactive AZITHROMYCIN 250 MG ORAL TABLET 2 po qd x 1 day, then 1 po q d x 4 days AZITHROMYCIN 250 MG ORAL TABLET 399891 AZITHROMY SPARKLE Inactive PREDNISONE 20 MG ORAL TABLET 2 tabs daily for 3 days, 1 tab daily for 3 days, 1/2 tab daily for 2 days PREDNISONE 20 MG ORAL TABLET 339333 PREDNISONE Inactive CEFDINIR 300 MG ORAL CAPSULE by mouth twice a day 2013 CEFDINIR 300 MG ORAL CAPSULE 482980 CEFDINIR Inactive TRIAMCINOLONE ACETONIDE 0.1 % EXTERNAL OINTMENT Apply to affected areas TID for up to 2 weeks TRIAMCINOLONE ACETON ZACH 0.1 % EXTERNAL OINTMENT 4960644 TRIAMCINOLONE ACETONIDE Inactive PREDNISONE 20 MG ORAL TABLET 2 tabs daily for 3 days, 1 tab daily for 3 days, 1/2 tab daily for 2 days PREDNISONE 20 MG ORAL T ABLET 452201 PREDNISONE Inactive BACTRIM DS 800-160 MG ORAL TABLET 1 po BID x 7 days 29/04/10 BACTRIM DS 800-160 MG ORAL TABLET 931677 SULFAMETHOXAZOLE-TRIMETHOP RIM Inactive CIPRO 500 MG ORAL TABLET 1 tablet by mouth twice daily CIPRO 500 MG ORAL TABLET 477316 CIPROFLOXACIN HCL Inactive AZITHROMYCIN 250 MG ORAL TABLET 2 po qd x 1 day, then 1 po q d x 4 days AZITHROMYCIN 250 MG ORAL TABLET 023681 AZITHROMY SPARKLE Inactive FLAGYL 500 MG ORAL TABLET 1 tablet by mouth bid 04/13 FLAGYL 500 MG ORAL TABLET 443493 METRONIDAZOLE Inactive AZITHROMYCIN 250 MG ORAL TABLET 2 po qd x 1 day, then 1 po q d x 4 days AZITHROMYCIN 250 MG ORAL TABLET 304335 AZITHROMY SPARKLE Inactive AMOXICILLIN 500 MG ORAL CAPSULE 2 po BID x 10 days 201 01/15/27 AMOXICILLIN 500 MG ORAL CAPSULE 158321 AMOXICILLIN Inactive AMOXICILLIN 500 MG ORAL CAPSULE 2 po BID x 14 days for H. Pylori AMOXICILLIN 500 MG ORAL CAPSULE 938690 AMOXICILLIN Inactive CLARITHROMYCIN 500 MG ORAL TABLET 1 tab po BID x 14 days CLARITHROMYCIN 500 MG ORAL TABLET 651709 CLARITHROMYCIN Inacti ve FLAGYL 500 MG ORAL TABLET 1 tablet by mouth bid 08/29 FLAGYL 500 MG ORAL TABLET 968754 METRONIDAZOLE Inactive PROTONIX 40 MG ORAL TABLET DELAYED RELEASE 1 pill by m outh daily, for acid reflux PROTONIX 40 MG ORAL TABLET DELAYED RELEAS E 999899 PANTOPRAZOLE SODIUM Inactive Immunizations Vaccine Administration Date [...] ... - Chemistry sodium, serum 139 mmol/L 344-539 1716/11/28 carbon dioxide, venous blood 26.0 mmol/L 21.0-32 [...] 5.0-8.5 Encounters Code Encounter Date Provider Facility CPT-97164 [id number] Vst-Est Level III 09:37:41 CDT Dangelo Rangel MD [facility] CPT-76608 Level 4 Est. Patient 08:57:51 RELATIONSHIP MANAGEMENT LEAD Checo Conklin MD [facility] CPT-01608 Level 3 Est. Patient 11:24:55 RELATIONSHIP MANAGEMENT LEAD Efren almendarez [facility] CPT-59259 Level 3 Est. Patient 13:05:44 CDT Paul Hamlin MD [facility] CPT-36935 Level 3 Est. Patient 11:29:55 CDT Checo Conklin MD [facility] CPT-53532 Level 4 Est. Patient 11:08:12 RELATIONSHIP MANAGEMENT LEAD Checo Conklin MD [facility] CPT-63682 Level 4 Est. Patient 16:06:48 RELATIONSHIP MANAGEMENT LEAD Checo Conklin MD [facility] CPT-60934 Level 3 Est. Patient 09:11:49 CDT Efren almendarez [facility] CPT-24405 Level 2 Est. Patient 19:53:27 CDT Tanner hill MD [facility] CPT-76586 Level 3 Est. Patient 09:15:34 CDT Efren almendarez [facility] CPT-65789 Level 3 Est. Patient 11:28:51 RELATIONSHIP MANAGEMENT LEAD Efren almendarez [facility] CPT-77403 Level 4 Est. Patient 13:55:46 RELATIONSHIP MANAGEMENT LEAD Checo Conklin MD [facility] CPT-65375 Level 4 Est. Patient 17:10:53 CDT Checo Conklin MD [facility] CPT-03901 Level 3 Est. Patient 15:56:22 CDT Checo Conklin MD [facility] CPT-84715 Level 3 Est. Patient 15:29:07 CDT Checo Conklin MD [facility] CPT-09870 Level 3 Est. Patient 14:38:41 CDT Checo Conklin MD [facility] CPT-77216 Level 3 Est. Patient 15:22:03 RELATIONSHIP MANAGEMENT LEAD Thomas reynolds DO [facility] CPT-88064 Level 3 Est. Patient 13:34:17 RELATIONSHIP MANAGEMENT LEAD Checo Conklin MD [facility] CPT-22885 Level 3 Est. Patient 12:29:32 CDT Dangelo arroyo MD [facility] CPT-01732 Level 3 Est. Patient 16:53:02 CDT Checo Conklin MD [facility] CPT-20338 Level 3 Est. Patient 16:37:13 CDT Checo Conklin MD [facility] CPT-60744 Level 3 Est. Patient 16:16:59 CDT Paul Hamlin MD [facility] CPT-20462 Level 3 Est. Patient 14:20:13 CDT Dangelo arroyo MD [facility] CPT-87648 Level 4 Est. Patient 11:29:33 CDT Checo Conklin MD [facility] CPT-58259 Level 3 Est. Patient 17:08:31 CDT Checo Conklin MD [facility] CPT-98004 Level 3 Est. Patient 16:50:42 RELATIONSHIP MANAGEMENT LEAD Checo Conklin MD [facility] CPT-12259 Level 4 Est. Patient 09:26:08 RELATIONSHIP MANAGEMENT LEAD Checo Conklin MD [facility] CPT-18749 Level 3 Est. Patient 11:37:10 CDT Checo Conklin MD [facility] CPT-06771 Level 4 Est. Patient 14:07:38 CDT Checo Conklin MD [facility] CPT-93823 Level 3 Est. Patient 09:54:41 CDT Checo Conklin MD [facility] CPT-08516 Level 3 Est. Patient 11:10:54 CDT Paul Hamlin MD [facility] CPT-02634 Level 3 Est. Patient 14:16:56 RELATIONSHIP MANAGEMENT LEAD Checo Conklin MD [facility] CPT-53463 Level 3 Est. Patient 11:04:11 RELATIONSHIP MANAGEMENT LEAD Checo Conklin MD [facility] CPT-99349 Level 3 Est. Patient 17:09:26 CDT Dangelo arroyo MD [facility] CPT-06647 Level 3 Est. Patient 16:54:37 CDT Checo Conklin MD [facility] Procedures Code Procedure Name Date Entry Date Standard Desc ription CPT-12226 Wrist, right, comp 3V - XRAY USE ONLY 09:24:31 CDT CPT-49509 Abd compl w upright - XRAY USE ONLY 1 1:36:54 RELATIONSHIP MANAGEMENT LEAD CPT-27206 UA w micro - LAB USE ONLY 17:06:46 CDT 2015 CPT-08055 [facility] Qual - LAB USE ONLY 17:06:46 CDT 05/06 CPT-23029 CMP - LAB USE ONLY 17:06:46 CDT CPT-41282 CBC with Diff - LAB USE ONLY 17:06:45 CDT 2 CPT-83701 Venipuncture Draw Fee 17:06:45 CDT CPT-LR Lesion Removal 19:53:27 CDT CPT-OV Office Visit 11:31:28 CDT CPT-46079 Tubersol 09:39:29 CDT CPT-J2550 Phenergan 25 mg (Promethazine) 13:59:02 RELATIONSHIP MANAGEMENT LEAD CPT-J1885 Toradol 60 mg (Ketorolac) 13:59:02 RELATIONSHIP MANAGEMENT LEAD 2012
--- OUTSIDE RECORDS SUMMARY | 2019-09-29 02:20 | XMS REPORT | Clinical Summary ---
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 Tanner Carrillo MD Neoplasm of uncertain behavior of skin Abdominal pain, generalized 789.07 Active Jillina Frazell DELI COOK Abdominal pain, generalized Urinary frequency 788.41 Active Jillina Frazell DELI COOK Urinary frequency BREAST CANCER ICD-V16.3 Inactive Checo [...] tab by mouth twice daily 2 TRIMETHOPRIM-SULFAMETHOXAZOLE 67439983250 No Longer Active Tanner Carrillo MD Active DIFLUCAN 150 MG TAB 1 tablet by mouth qod FLUCO NAZOLE 44294498894 No Longer Active Efren Medel APRN Active CLARITIN 10 MG TAB 1 tablet by mouth daily as needed for allergies LORATADINE 04561359431 Active Americollmanuela Medel DELI COOK Active AZITHROMYCIN 250 MG TABS 2 po qd x 1 day, then 1 po qd x 4 days AZITHROMYCIN 04683026498 No Longer Active Americollmanuela Medel APRN Active FLAGYL 500 MG TAB 1 tablet by mouth bid METRONI DAZOLE 49429654325 No Longer Active Checo Conklin MD Active FOCALIN XR 10 MG ORAL [id number] 1 po q a.m. DEX METHYLPHENIDATE HCL 16049561680 Active Checo Conklin MD Active MAGNESIUM CITRATE 1.745 GM/30ML ORAL SOLN 150ml po BID PRN C onstipation MAGNESIUM CITRATE 60371892500 No Longer Active Checo Conklin MD Active BACTROBAN 2 % CREAM Apply to affected area BID for up to 10 days MUPIROCIN CALCIUM 21566292232 No Longer Active Checo Conklin MD Active HYDROCODONE-ACETAMINOPHEN 5-325 MG TABS 1 tab by mouth every 6 hours as needed HYDROCODONE-ACETAMINOPHEN 94754193539 No Longer Activ e Checo Conklin MD Active IBUPROFEN 800 MG TABS 1 tab every 8 hours with food 31/03/21 IBUPROFEN 71430397349 No Longer Active Checo Conklin MD Activ e DIFLUCAN 150 MG TAB 1 tablet by mouth if needed, hold until symptoms start FLUCONAZOLE 17045163868 No Longer Active Checo Ortiz MD Active BACTRIM DS 800-160 MG TAB 1 tab by mouth twice daily 2 TRIMETHOPRIM-SULFAMETHOXAZOLE 44825492057 No Longer Active Corry leong LPN Active MIRALAX PACK 1 po qd PRN Constipation POLYETHYL JOEL GLYCOL 3350 03117347700 Active Checo Conklin MD Active HYDROCODONE-ACETAMINOPHEN 5-325 MG TABS 0.5 to 1 tab b y mouth every 6 hours as needed HYDROCODONE-ACETAMINOPHEN 00965441271 No Longer Active Checo Conklin MD Active ONDANSETRON [address] one tablet on tongue and allow to dissolve every 6 hours as needed for vomitting ONDANSETRO N 19022893420 No Longer Active Checo Conklin MD Active COMPRO 25 MG RECTAL SUPP insert or apply one supposit ory rectally as directed every 12 hours as needed for nausea PROCHLORPERA ZINE 23069061458 No Longer Active Checo Conklin MD Active SUMATRIPTAN SUCCINATE 100 MG ORAL TABS Take one PRN for migrane SUMATRIPTAN SUCCINATE 33848827206 No Longer Active Checo Conklin MD Active TRAVEL SICKNESS 25 MG ORAL CHEW chew and swallow one t ablet every 6 hours as needed MECLIZINE HCL 49017747686 No Longer Active Joe Conklin MD Active BUPROPION HCL ER (SR) 100 MG ORAL [id number] take one t ablet by mouth one time daily for one week then take 1 two times daily BUPROPION HCL 08239692328 No Longer Active Checo Conklin MD Activ e TERBINAFINE HCL 250 MG ORAL TABS take one table PO one time abran y TERBINAFINE HCL 13002802203 No Longer Active Checo Conklin MD Active METOCLOPRAMIDE HCL 10 MG ORAL TABS take one PO tid PRN nausea 20 29/12/14 METOCLOPRAMIDE HCL 00559031621 No Longer Active Checo Conklin MD Active DICLOFENAC SODIUM 75 MG TBEC 1 tablet by mouth twice daily P RN Knee pain DICLOFENAC SODIUM 08200616360 No Longer Active Checo Conkiln MD Active LAMISIL 250 MG TAB 1 po qd TERBINAFINE HCL 548 18870394 No Longer Active Checo Conklin MD Active REGLAN 10 MG TAB 1 po TID PRN Nausea METOCLOPRA MIDE HCL 91769980875 No Longer Active Checo Conklin MD Active CELEXA 20 MG TABS 1 tablet by mouth daily CITALOPRAM HYDROBROMIDE 52260329365 No Longer Active Cehco Conklin MD Activ e AZITHROMYCIN 250 MG TABS 2 po qd x 1 day, then 1 po qd x 4 days AZITHROMYCIN 77781454421 No Longer Active Checo Conklin MD Active HYDROCODONE-ACETAMINOPHEN 5-325 MG TABS 1 po q 6hr PRN Pain 2013 HYDROCODONE-ACETAMINOPHEN 18437933905 No Longer Active Lenora Conklin MD Active PHENAZOPYRIDINE HCL 200 MG TABS take 1 tab po TID for bladder pa in PHENAZOPYRIDINE HCL 92305138589 No Longer Active Checo Joshua Active CIPRO 500 MG TAB 1 tablet by mouth twice daily CIPROFLOXACIN HCL 43858713682 No Longer Active Dangelo Rangel MD Active HYDROCODONE-ACETAMINOPHEN 5-325 MG TABS 1/2 to 1 po q 4 hour s prn cough HYDROCODONE-ACETAMINOPHEN 00146908092 No Longer Activ e Dangelo Rangel MD Active BACTRIM DS 800-160 MG TABS 1 po BID x 7 days 0 SULFAMETHOXAZOLE-TRIMETHOPRIM 52718035263 No Longer Active Checo Conklin MD Active PREDNISONE 20 MG TAB 2 tabs daily for 3 days, 1 t ab daily for 3 days, 1/2 tab daily for 2 days PREDNISONE 91886406806 No Longer Active Checo Conklin MD Active TRIAMCINOLONE ACETONIDE 0.1 % OINT Apply to affected a reas TID for up to 2 weeks TRIAMCINOLONE ACETONIDE 95481950082 No Longer A ctive Checo Conklin MD Active CEFDINIR 300 MG CAPS by mouth twice a day CEFDI JAZZY 94349836960 No Longer Active Dangelo Rangel MD Active BUPROPION HCL (SMOKING DETER) 150 MG [id number] 1 a day for 1 week then 1 twice a day BUPROPION HCL (SMOKING DETER) 46789022496 No Lo nger Active Checo Conklin MD Active SIMVASTATIN 20 MG TABS 1 po qd SIMVASTATIN 1620013605 5 Active Checo Conklin MD Active CHANTIX STARTING MONTH KARTHIK 0.5 MG X 11 & 1 MG X 42 TAB S 0.5mg daily for 3 days, then 0.5mg BID for 4 days, then 1mg BID VARENICLINE TARTRATE 71973470811 No Longer Active Checo Conklin MD Activ e XANAX 0.5 MG TABS 1 po BID PRN anxiety ALPRAZOLAM 29593402747 Active Checo Conklin MD Active CONCERTA 18 MG CR-TABS 1 po q a.m. METHYLPHENID ATE HCL 75172557736 No Longer Active Checo Conklin MD Active AMBIEN 5 MG TAB 1 po qHS PRN Insomnia ZOLPIDEM TARTRATE 54012089285 Active Checo Conklin MD Active TRAZODONE HCL 100 MG TAB 0.5 to 1 po qHS PRN Insomnia TRAZODONE HCL 11277816450 No Longer Active Checo Conklin MD Acti ve FIORICET 325-50-40 MG TAB 1 tablet by mouth four times daily as needed [id number] 65383461194 No Longer Active Checo Conklin MD Active PHENERGAN CREAM* 25mg applied to wrist q6hr PRN Nausea PHENERGAN CREAM* No Longer Active Checo Conklin MD A ctive FLONASE 50 MCG/ACT SUSP 1 spray each nostril am and hs FLUTICASONE PROPIONATE 99201061997 No Longer Active Checo Simms e ANTIPYRINE-BENZOCAINE 5.4-1.4 % SOLN 1-2 drops in affected ear BENZOCAINE-ANTIPYRINE 15008571197 No Longer Active Checo Conklin MD Active CEFDINIR 300 MG CAPS 1 po bid CEFDINIR 33839658 120 No Longer Active Checo Conklin MD Active PREDNISONE 20 MG TAB 2 tabs daily for 3 days, 1 t ab daily for 3 days, 1/2 tab daily for 2 days PREDNISONE 40557677352 No Longer Active Aracelis Conklin MD Active AZITHROMYCIN 250 MG TABS 2 po qd x 1 day, then 1 po qd x 4 days AZITHROMYCIN 18445496673 No Longer Active Checo Conklin MD Active PREDNISONE 20 MG TAB 2 tabs daily for 3 days, 1 t ab daily for 3 days, 1/2 tab daily for 2 days PREDNISONE 04136845153 No Longer Active Checo Conklin MD Active ZITHROMAX Z-KARTHIK 250 MG TABS 2 today, then 1 daily for 4 days 201 09/18/28 AZITHROMYCIN 64465745507 No Longer Active Paul Hamlin MD Active FOCALIN XR 10 MG [id number] 1 po q a.m. D EXMETHYLPHENIDATE HCL 35789820898 No Longer Active Paul Hamlin MD Activ e PERCOCET 10-325 MG TABS 1 tablet every 6 hours as needed for pain OXYCODONE-ACETAMINOPHEN 03222089824 No Longer Active Paul Hamlin MD Active LORTAB 5 5-500 MG TABS 1/2 to 1 tablet by mouth flaquito ry 4 hours as needed for pain HYDROCODONE-ACETAMINOPHEN 29086587542 No Longer Active Checo Conklin MD Active FOCALIN XR 15 MG [id number] 1 po q a.m. D EXMETHYLPHENIDATE HCL 27727043452 No Longer Active Checo Conklin MD Activ e ZOFRAN ODT 4 MG TBDP 1 po q6hr PRN Nausea ONDAN SETRON 16358414561 No Longer Active Checo Conklin MD Active PERCOCET 5-325 MG TABS 1 tablet by mouth every 6 hours as needed OXYCODONE-ACETAMINOPHEN 81302346101 No Longer Active Checo Conklin MD Active PYRIDIUM 200 MG TABS take 1 tab po TID prn urinary pain. 0 PHENAZOPYRIDINE HCL 23932210270 No Longer Active Checo Conklin MD Active FLUCONAZOLE 150 MG TABS take 1 tab po qday once 04/06 FLUCONAZOLE 59696791688 No Longer Active Dangelo Rangel MD Acti ve CIPRO 500 MG TAB 1 tablet by mouth twice daily CIPROFLOXACIN HCL 74446788309 No Longer Active Dangelo Rangel MD Active PYRIDIUM 200 MG TABS take 1 tab po TID prn urinary pain. 0 PYRIDIUM 200 MG TABS 6119967 PHENAZOPYRIDINE HCL Inactive PERCOCET 5-325 MG TABS 1 tablet by mouth every 6 hours as needed PERCOCET 5-325 MG TABS 9528760 OXYCODONE-ACETAMINOPHEN I nactive ZOFRAN ODT 4 MG TBDP 1 po q6hr PRN Nausea ZOFRAN ODT 4 MG TBDP 917983 ONDANSETRON Inactive FOCALIN XR 15 MG [id number] 1 po q a.m. F OCALIN XR 15 MG [id number] DEXMETHYLPHENIDATE HCL Inactive LORTAB 5 5-500 MG TABS 1/2 to 1 tablet by mouth flaquito ry 4 hours as needed for pain LORTAB 5 5-500 MG TABS HYDROCODONE-A CETAMINOPHEN Inactive PERCOCET 10-325 MG TABS 1 tablet every 6 hours as needed for pain PERCOCET 10-325 MG TABS 5696683 OXYCODONE-ACETAMINOPHEN Inactive FOCALIN XR 10 MG [id number] 1 po q a.m. F OCALIN XR 10 MG [id number] DEXMETHYLPHENIDATE HCL Inactive CEFDINIR 300 MG CAPS 1 po bid CEFDINIR 300 MG CAPS 20 0346 CEFDINIR Inactive ANTIPYRINE-BENZOCAINE 5.4-1.4 % SOLN 1-2 drops in affected ear ANTIPYRINE-BENZOCAINE 5.4-1.4 % SOLN 833970 BENZOCAINE-ANTIPYRINE I nactive FLONASE 50 MCG/ACT SUSP [...] PRN Insomnia TRAZODONE HCL 100 MG TAB 244389 TRAZODONE HCL Inactive CONCERTA 18 MG CR-TABS [...] s prn cough HYDROCODONE-ACETAMINOPHEN 5-325 MG TABS 616505 HYDROCODONE-ACETAMINOPHEN Inactive PHENAZOPYRIDINE HCL 200 MG TABS take 1 tab po TID for bladder pa in PHENAZOPYRIDINE HCL 200 MG TABS 3753813 PHENAZOPYRIDINE HCL Inactive HYDROCODONE-ACETAMINOPHEN 5-325 MG TABS 1 po q 6hr PRN Pain 2013 HYDROCODONE-ACETAMINOPHEN 5-325 MG TABS 356621 HYDROCODONE-ACETAMINOPHEN Inactive CELEXA 20 MG TABS 1 tablet by mouth daily CELEXA 20 MG TABS 045823 CITALOPRAM HYDROBROMIDE Inactive REGLAN 10 MG TAB 1 po TID PRN Nausea REGLAN 10 MG TAB 088823 METOCLOPRAMIDE HCL Inactive LAMISIL 250 MG TAB 1 po qd LAMISIL 250 MG TAB 927866 TERBINAFINE HCL Inactive DICLOFENAC SODIUM 75 MG TBEC 1 tablet by mouth twice daily P RN Knee pain DICLOFENAC SODIUM 75 MG TBEC 661085 DICLOFENAC S ODIUM Inactive METOCLOPRAMIDE HCL 10 MG ORAL TABS take one PO tid PRN nausea 20 29/12/14 METOCLOPRAMIDE HCL 10 MG ORAL TABS 378851 METOCLOPRAMID E HCL Inactive TERBINAFINE HCL 250 MG ORAL TABS take one table PO one time abran y TERBINAFINE HCL 250 MG ORAL TABS 455601 TERBINAFINE HCL Inactive BUPROPION HCL ER (SR) 100 MG ORAL [id number] take one t ablet by mouth one time daily for one week then take 1 two times daily BUPROPION HCL ER (SR) 100 MG ORAL [id number] BUPROPION HCL Inacti ve TRAVEL SICKNESS 25 MG ORAL CHEW chew and swallow one t ablet every 6 hours as needed TRAVEL SICKNESS 25 MG ORAL CHEW 274489 MECLIZINE HCL Inactive SUMATRIPTAN SUCCINATE 100 MG ORAL TABS Take one PRN for migrane SUMATRIPTAN SUCCINATE 100 MG ORAL TABS 821459 SUMATRIPT AN SUCCINATE Inactive COMPRO 25 MG RECTAL SUPP insert or apply one supposit ory rectally as directed every 12 hours as needed for nausea COMP RO 25 MG RECTAL SUPP 184863 PROCHLORPERAZINE Inactive ONDANSETRON [address] one tablet on tongue and allow to dissolve every 6 hours as needed for vomitting ON DANSETRON 8 MG ORAL TBDP 727553 ONDANSETRON Inactive HYDROCODONE-ACETAMINOPHEN 5-325 MG TABS 0.5 to 1 tab b y mouth every 6 hours as needed HYDROCODONE-ACETAMINOPHEN 5-325 MG TABS 8 11710 HYDROCODONE-ACETAMINOPHEN Inactive BACTRIM DS 800-160 MG TAB 1 tab by mouth twice daily 2 BACTRIM DS 800-160 MG TAB 680410 TRIMETHOPRIM-SULFAMETHOXAZOLE Inac tive DIFLUCAN 150 MG TAB 1 tablet by mouth if needed, hold until symptoms start DIFLUCAN 150 MG TAB 165412 FLUCONAZOLE Inactive IBUPROFEN 800 MG TABS 1 tab every 8 hours with food 20 31/03/21 IBUPROFEN 800 MG TABS 694079 IBUPROFEN Inactive HYDROCODONE-ACETAMINOPHEN 5-325 MG TABS 1 tab by mouth every 6 hours as needed HYDROCODONE-ACETAMINOPHEN 5-325 MG TABS 435800 HYDROCODONE-ACETAMINOPHEN Inactive BACTROBAN 2 % CREAM Apply to affected area BID for up to 10 days BACTROBAN 2 % CREAM 438398 MUPIROCIN CALCIUM Inactive MAGNESIUM CITRATE 1.745 GM/30ML ORAL SOLN 150ml po BID PRN C onstipation MAGNESIUM CITRATE 1.745 GM/30ML ORAL SOLN 756839 0 MAGNESIUM CITRATE Inactive DIFLUCAN 150 MG TAB 1 tablet by mouth qod DIFLUCAN 150 MG TAB 273591 FLUCONAZOLE Inactive BACTRIM DS 800-160 MG TAB 1 tab by mouth twice daily 2 BACTRIM DS 800-160 MG TAB 095242 TRIMETHOPRIM-SULFAMETHOXAZOLE Inac tive CIPRO 500 MG TAB 1 tablet by mouth twice daily CIPRO 500 MG TAB 425270 CIPROFLOXACIN HCL Inactive FLUCONAZOLE 150 MG TABS take 1 tab po qday once 04/06 FLUCONAZOLE 150 MG TABS 19760325 FLUCONAZOLE Inactive ZITHROMAX Z-KARTHIK 250 MG TABS 2 today, then 1 daily for 4 days 201 09/18/28 ZITHROMAX Z-KARTHIK 250 MG TABS 1945168 AZITHROMYCIN Inac tive PREDNISONE 20 MG TAB 2 tabs daily for 3 days, 1 t ab daily for 3 days, 1/2 tab daily for 2 days PREDNISONE 20 MG TAB 271429 PREDNISON E Inactive AZITHROMYCIN 250 MG TABS 2 po qd x 1 day, then 1 po qd x 4 days AZITHROMYCIN 250 MG TABS 5038948 AZITHROMYCIN Inactiv e PREDNISONE 20 MG TAB 2 tabs daily for 3 days, 1 t ab daily for 3 days, 1/2 tab daily for 2 days PREDNISONE 20 MG TAB 318657 PREDNISON E Inactive CEFDINIR 300 MG CAPS by mouth twice a day CEFDINIR 300 MG CAPS 373809 CEFDINIR Inactive TRIAMCINOLONE ACETONIDE 0.1 % OINT Apply to affected a reas TID for up to 2 weeks TRIAMCINOLONE ACETONIDE 0.1 % OINT 750402 6 TRIAMCINOLONE ACETONIDE Inactive PREDNISONE 20 MG TAB 2 tabs daily for 3 days, 1 t ab daily for 3 days, 1/2 tab daily for 2 days PREDNISONE 20 MG TAB 871688 PREDNISON E Inactive BACTRIM DS 800-160 MG TABS 1 po BID x 7 days 0 BACTRIM DS 800-160 MG TABS 197264 SULFAMETHOXAZOLE-TRIMETHOPRIM Inactive CIPRO 500 MG TAB 1 tablet by mouth twice daily CIPRO 500 MG TAB 561755 CIPROFLOXACIN HCL Inactive AZITHROMYCIN 250 MG TABS 2 po qd x 1 day, then 1 po qd x 4 days AZITHROMYCIN 250 MG TABS 5959206 AZITHROMYCIN Inactiv e FLAGYL 500 MG TAB 1 tablet by mouth bid FLAGYL 500 MG TAB 734558 METRONIDAZOLE Inactive AZITHROMYCIN 250 MG TABS 2 po qd x 1 day, then 1 po qd x 4 days AZITHROMYCIN 250 MG TABS 6412892 AZITHROMYCIN Inactiv e Immunizations Vaccine Administration Date [...] CBC W/DIFF, Comp. Metabolic Panel, Qual [facility] [place] - Chemistry sodium, serum 139 mmol/L 730-661 3496/10/21 carbon dioxide, venous blood 33.5 mmol/L 21.0-32 [...] CBC W/DIFF, Comp. Metabolic Panel, Qual [facility] [place] - Hematology leukocyte [...] dipstick Negative Negative sodium, serum 141 mmol/L 504-355 6961/01/26 carbon dioxide, venous blood 30.0 mmol/L 21.0-32 .0 potassium, serum 4.0 mmol/L 3.5-5.2 chloride, serum 105 mmol/L 98-107 blood glucose 85 mg/dL 65-110 urea nitrogen, blood 9 mg/dL 7-18 creatinine, serum 0.66 mg/dL 0.55-1.30 alanine aminotransferase (SGPT), serum 31 U/L 12-78 aspartate aminotransferase (SGOT), serum 21 U/L 15-37 calcium, serum 8.2 mg/dL 8.5-10.1 bilirubin, serum, total 1.10 mg/dL 0.00-1.00 cholesterol, serum 178 mg/dL 348-129 2014/01/26 triglyceride, serum, fasting 149 mg/dL 30-200 HDL [...] ... - Chemistry sodium, serum 137 mmol/L 250-412 2787/05/27 carbon dioxide, venous blood 29.1 mmol/L 21.0-32 [...] 5.0-8.5 Encounters Code Encounter Date Provider Facility CPT-47658 Level 3 Est. Patient 09:11:49 CDT Efren almendarez [facility] CPT-89201 Level 2 Est. Patient 19:53:27 CDT Tanner hill MD [facility] CPT-75774 Level 3 Est. Patient 09:15:34 CDT Efren almendarez [facility] CPT-75742 Level 3 Est. Patient 11:28:51 STONEWORKER Efren almendarez [facility] CPT-22315 Level 4 Est. Patient 13:55:46 STONEWORKER Checo Conklin MD [facility] CPT-79075 Level 4 Est. Patient 17:10:53 CDT Checo Conklin MD [facility] CPT-21617 Level 3 Est. Patient 15:56:22 CDT Checo Conklin MD [facility] CPT-73631 Level 3 Est. Patient 15:29:07 CDT Checo Conklin MD [facility] CPT-93612 Level 3 Est. Patient 14:38:41 CDT Checo Conklin MD [facility] CPT-36116 Level 3 Est. Patient 15:22:03 STONEWORKER Thomas reynolds DO [facility] CPT-55353 Level 3 Est. Patient 13:34:17 STONEWORKER Checo Conklin MD [facility] CPT-24420 Level 3 Est. Patient 12:29:32 CDT Dangelo arroyo MD [facility] CPT-41029 Level 3 Est. Patient 16:53:02 CDT Checo Conklin MD [facility] CPT-29625 Level 3 Est. Patient 16:37:13 CDT Checo Conklin MD [facility] CPT-03644 Level 3 Est. Patient 16:16:59 CDT Paul Hamlin MD [facility] CPT-35624 Level 3 Est. Patient 14:20:13 CDT Dangelo arroyo MD [facility] CPT-35055 Level 4 Est. Patient 11:29:33 CDT Checo Conklin MD [facility] CPT-12262 Level 3 Est. Patient 17:08:31 CDT Checo Conklin MD [facility] CPT-98471 Level 3 Est. Patient 16:50:42 STONEWORKER Checo Conklin MD [facility] CPT-77877 Level 4 Est. Patient 09:26:08 STONEWORKER Checo Conklin MD [facility] CPT-56795 Level 3 Est. Patient 11:37:10 CDT Checo Conklin MD [facility] CPT-83926 Level 4 Est. Patient 14:07:38 CDT Checo Conklin MD [facility] CPT-17354 Level 3 Est. Patient 09:54:41 CDT Checo Conklin MD [facility] CPT-75141 Level 3 Est. Patient 11:10:54 CDT Paul Hamlin MD [facility] CPT-02417 Level 3 Est. Patient 14:16:56 STONEWORKER Checo Conklin MD [facility] CPT-31102 Level 3 Est. Patient 11:04:11 STONEWORKER Checo Conklin MD [facility] CPT-55867 Level 3 Est. Patient 17:09:26 CDT Dangelo arroyo MD [facility] CPT-51406 Level 3 Est. Patient 16:54:37 CDT Checo Conklin MD [facility] Procedures Code Procedure Name Date Entry Date Standard Desc ription CPT-58613 UA w micro - LAB USE ONLY 17:06:46 CDT 2015 CPT-33909 [facility] Qual - LAB USE ONLY 17:06:46 CDT 05/06 CPT-98064 CMP - LAB USE ONLY 17:06:46 CDT CPT-70666 CBC with Diff - LAB USE ONLY 17:06:45 CDT 2 CPT-12188 Venipuncture Draw Fee 17:06:45 CDT CPT-LR Lesion Removal 19:53:27 CDT CPT-OV Office Visit 11:31:28 CDT CPT-74763 Tubersol 09:39:29 CDT CPT-J2550 Phenergan 25 mg (Promethazine) 13:59:02 STONEWORKER CPT-J1885 Toradol 60 mg (Ketorolac) 13:59:02 STONEWORKER 2012
--- OUTSIDE RECORDS SUMMARY | 2019-09-29 02:20 | XMS REPORT | Clinical Summary ---
Author Author Admin, Bethany Gonzales Organization [employer] Address Unknown Phone Unavailable Allergies, Adverse Reactions, [...] TABS 1.5 po qd PAROX ETINE HCL 54174781044 Active Checo Conklin MD Active FLUTICASONE PROPIONATE 50 MCG/ACT NASAL SUSP 2 sprays/ nostril qd PRN Congestion/Allergies FLUTICASONE PROPIONATE 1681451140 5 No Longer Active Checo Conklin MD Active AMOXICILLIN 500 MG ORAL CAPS 2 po BID x 10 days 09/12 AMOXICILLIN 67094536144 No Longer Active Checo Conklin MD Activ e MIRALAX ORAL POWD 8.5 to 17g po qd PRN Constipation POLYETHYLENE GLYCOL 3350 23086718097 Active Checo Conklin MD Active CLARITIN 10 MG TAB 1 tablet by mouth daily as needed for allergi es LORATADINE 14532050952 No Longer Active Checo Conklin MD Active BACTRIM DS 800-160 MG TAB 1 tab by mouth twice daily 2 TRIMETHOPRIM-SULFAMETHOXAZOLE 19477456711 No Longer Active Tanner Carrillo MD Active DIFLUCAN 150 MG TAB 1 tablet by mouth qod FLUCO NAZOLE 74894822944 No Longer Active Efren Medel APRN Active AZITHROMYCIN 250 MG TABS 2 po qd x 1 day, then 1 po qd x 4 days AZITHROMYCIN 00182976543 No Longer Active Efren Medel APRN Active FLAGYL 500 MG TAB 1 tablet by mouth bid METRONI DAZOLE 63175723469 No Longer Active Checo Conklin MD Active FOCALIN XR 10 MG ORAL [id number] 1 po q a.m. DEX METHYLPHENIDATE HCL 31713016334 Active Checo Conklin MD Active MAGNESIUM CITRATE 1.745 GM/30ML ORAL SOLN 150ml po BID PRN C onstipation MAGNESIUM CITRATE 14699089333 No Longer Active Checo Conklin MD Active BACTROBAN 2 % CREAM Apply to affected area BID for up to 10 days MUPIROCIN CALCIUM 04751593975 No Longer Active Checo Conklin MD Active HYDROCODONE-ACETAMINOPHEN 5-325 MG TABS 1 tab by mouth every 6 hours as needed HYDROCODONE-ACETAMINOPHEN 25363908306 No Longer Activ e Checo Conklin MD Active IBUPROFEN 800 MG TABS 1 tab every 8 hours with food 20 31/03/21 IBUPROFEN 59228764829 No Longer Active Checo Conklin MD Activ e DIFLUCAN 150 MG TAB 1 tablet by mouth if needed, hold until symptoms start FLUCONAZOLE 10932112144 No Longer Active Checo Ortiz MD Active BACTRIM DS 800-160 MG TAB 1 tab by mouth twice daily 2 TRIMETHOPRIM-SULFAMETHOXAZOLE 31834121275 No Longer Active Corry leong LPN Active HYDROCODONE-ACETAMINOPHEN 5-325 MG TABS 0.5 to 1 tab b y mouth every 6 hours as needed HYDROCODONE-ACETAMINOPHEN 19295431537 No Longer Active Checo Conklin MD Active ONDANSETRON [address] one tablet on tongue and allow to dissolve every 6 hours as needed for vomitting ONDANSETRO N 80468994954 No Longer Active Checo Conklin MD Active COMPRO 25 MG RECTAL SUPP insert or apply one supposit ory rectally as directed every 12 hours as needed for nausea PROCHLORPERA ZINE 49704178158 No Longer Active Checo Conklin MD Active SUMATRIPTAN SUCCINATE 100 MG ORAL TABS Take one PRN for migrane SUMATRIPTAN SUCCINATE 64479625576 No Longer Active Checo Conklin MD Active TRAVEL SICKNESS 25 MG ORAL CHEW chew and swallow one t ablet every 6 hours as needed MECLIZINE HCL 74238713949 No Longer Active Joe Conklin MD Active BUPROPION HCL ER (SR) 100 MG ORAL [id number] take one t ablet by mouth one time daily for one week then take 1 two times daily BUPROPION HCL 81578335461 No Longer Active Checo Conklin MD Activ e TERBINAFINE HCL 250 MG ORAL TABS take one table PO one time abran y TERBINAFINE HCL 09970989454 No Longer Active Checo Conklin MD Active METOCLOPRAMIDE HCL 10 MG ORAL TABS take one PO tid PRN nausea 20 29/12/14 METOCLOPRAMIDE HCL 07014934284 No Longer Active Checo Conklin MD Active DICLOFENAC SODIUM 75 MG TBEC 1 tablet by mouth twice daily P RN Knee pain DICLOFENAC SODIUM 98926293004 No Longer Active Checo Conklin MD Active LAMISIL 250 MG TAB 1 po qd TERBINAFINE HCL 548 49017925 No Longer Active Checo Conklin MD Active REGLAN 10 MG TAB 1 po TID PRN Nausea METOCLOPRA MIDE HCL 70052563760 No Longer Active Checo Conklin MD Active CELEXA 20 MG TABS 1 tablet by mouth daily CITALOPRAM HYDROBROMIDE 66331752313 No Longer Active Checo Conklin MD Activ e AZITHROMYCIN 250 MG TABS 2 po qd x 1 day, then 1 po qd x 4 days AZITHROMYCIN 54744824788 No Longer Active Checo Conklin MD Active HYDROCODONE-ACETAMINOPHEN 5-325 MG TABS 1 po q 6hr PRN Pain 2013 HYDROCODONE-ACETAMINOPHEN 02581286671 No Longer Active Lenora Conklin MD Active PHENAZOPYRIDINE HCL 200 MG TABS take 1 tab po TID for bladder pa in PHENAZOPYRIDINE HCL 76994542507 No Longer Active Checo Joshua Active CIPRO 500 MG TAB 1 tablet by mouth twice daily CIPROFLOXACIN HCL 13066246706 No Longer Active Dangelo Rangel MD Active HYDROCODONE-ACETAMINOPHEN 5-325 MG TABS 1/2 to 1 po q 4 hour s prn cough HYDROCODONE-ACETAMINOPHEN 12037549049 No Longer Activ e Dangelo Rangel MD Active BACTRIM DS 800-160 MG TABS 1 po BID x 7 days 0 SULFAMETHOXAZOLE-TRIMETHOPRIM 66563970656 No Longer Active Checo Conklin MD Active PREDNISONE 20 MG TAB 2 tabs daily for 3 days, 1 t ab daily for 3 days, 1/2 tab daily for 2 days PREDNISONE 84431104761 No Longer Active Checo Conklin MD Active TRIAMCINOLONE ACETONIDE 0.1 % OINT Apply to affected a reas TID for up to 2 weeks TRIAMCINOLONE ACETONIDE 11579030191 No Longer A ctive Checo Conklin MD Active CEFDINIR 300 MG CAPS by mouth twice a day CEFDI JAZZY 79763352264 No Longer Active Dangelo Rangel MD Active BUPROPION HCL (SMOKING DETER) 150 MG [id number] 1 a day for 1 week then 1 twice a day BUPROPION HCL (SMOKING DETER) 40790980796 No Lo nger Active Checo Conklin MD Active SIMVASTATIN 20 MG TABS 1 po qd SIMVASTATIN 6318017421 5 Active Checo Conklin MD Active CHANTIX STARTING MONTH KARTHIK 0.5 MG X 11 & 1 MG X 42 TAB S 0.5mg daily for 3 days, then 0.5mg BID for 4 days, then 1mg BID VARENICLINE TARTRATE 16405680094 No Longer Active Checo Conklin MD Activ e XANAX 0.5 MG TABS 1 po BID PRN anxiety ALPRAZOLAM 86191209405 Active Checo Conklin MD Active CONCERTA 18 MG CR-TABS 1 po q a.m. METHYLPHENID ATE HCL 70319078909 No Longer Active Checo Conklin MD Active AMBIEN 5 MG TAB 1 po qHS PRN Insomnia ZOLPIDEM TARTRATE 22130192556 Active Checo Conklin MD Active TRAZODONE HCL 100 MG TAB 0.5 to 1 po qHS PRN Insomnia TRAZODONE HCL 06414778182 No Longer Active Checo Conklin MD Acti ve FIORICET 325-50-40 MG TAB 1 tablet by mouth four times daily as needed [id number] 32408402183 No Longer Active Checo Conklin MD Active PHENERGAN CREAM* 25mg applied to wrist q6hr PRN Nausea PHENERGAN CREAM* No Longer Active Checo Conklin MD A ctive FLONASE 50 MCG/ACT SUSP 1 spray each nostril am and hs FLUTICASONE PROPIONATE 44283430073 No Longer Active Checo Conklin MD Activ e ANTIPYRINE-BENZOCAINE 5.4-1.4 % SOLN 1-2 drops in affected ear BENZOCAINE-ANTIPYRINE 44906705324 No Longer Active Checo Conklin MD Active CEFDINIR 300 MG CAPS 1 po bid CEFDINIR 44953109 120 No Longer Active Checo Conklin MD Active PREDNISONE 20 MG TAB 2 tabs daily for 3 days, 1 t ab daily for 3 days, 1/2 tab daily for 2 days PREDNISONE 09782221031 No Longer Active Aracelis Conklin MD Active AZITHROMYCIN 250 MG TABS 2 po qd x 1 day, then 1 po qd x 4 days AZITHROMYCIN 49696085812 No Longer Active Checo Conklin MD Active PREDNISONE 20 MG TAB 2 tabs daily for 3 days, 1 t ab daily for 3 days, 1/2 tab daily for 2 days PREDNISONE 42106111078 No Longer Active Checo Conklin MD Active ZITHROMAX Z-KARTHIK 250 MG TABS 2 today, then 1 daily for 4 days 201 09/18/28 AZITHROMYCIN 60809465760 No Longer Active Paul Hamlin MD Active FOCALIN XR 10 MG [id number] 1 po q a.m. D EXMETHYLPHENIDATE HCL 61468753669 No Longer Active Paul Hamlin MD Activ e PERCOCET 10-325 MG TABS 1 tablet every 6 hours as needed for pain OXYCODONE-ACETAMINOPHEN 78591572570 No Longer Active Paul Hamlin MD Active LORTAB 5 5-500 MG TABS 1/2 to 1 tablet by mouth flaquito ry 4 hours as needed for pain HYDROCODONE-ACETAMINOPHEN 36942475590 No Longer Active Checo Conklin MD Active FOCALIN XR 15 MG [id number] 1 po q a.m. D EXMETHYLPHENIDATE HCL 58192011147 No Longer Active Checo Conklin MD Activ e ZOFRAN ODT 4 MG TBDP 1 po q6hr PRN Nausea ONDAN SETRON 24782536754 No Longer Active Checo Conklin MD Active PERCOCET 5-325 MG TABS 1 tablet by mouth every 6 hours as needed OXYCODONE-ACETAMINOPHEN 54771371175 No Longer Active Checo Conklin MD Active PYRIDIUM 200 MG TABS take 1 tab po TID prn urinary pain. 0 PHENAZOPYRIDINE HCL 27330419832 No Longer Active Checo Conklin MD Active FLUCONAZOLE 150 MG TABS take 1 tab po qday once 04/06 FLUCONAZOLE 95973593621 No Longer Active Dangelo Rangel MD Acti ve CIPRO 500 MG TAB 1 tablet by mouth twice daily CIPROFLOXACIN HCL 62092680265 No Longer Active Dangelo Rangel MD Active PHENERGAN CREAM* 25mg applied to wrist q6hr PRN Nausea PHENERGAN CREAM* Inactive AMOXICILLIN 500 MG ORAL CAPS 2 po BID x 10 days 09/12 AMOXICILLIN 500 MG ORAL CAPS 238601 AMOXICILLIN Inactive ANTIPYRINE-BENZOCAINE 5.4-1.4 % SOLN 1-2 drops in affected ear ANTIPYRINE-BENZOCAINE 5.4-1.4 % SOLN BENZOCAINE-ANTIPYRINE I nactive BACTRIM DS 800-160 MG TAB 1 tab by mouth twice daily 2 BACTRIM DS 800-160 MG TAB 357472 TRIMETHOPRIM-SULFAMETHOXAZOLE Inac tive BACTRIM DS 800-160 MG TABS 1 po BID x 7 days 0 BACTRIM DS 800-160 MG TABS 416768 SULFAMETHOXAZOLE-TRIMETHOPRIM Inactive BACTRIM DS 800-160 MG TAB 1 tab by mouth twice daily 2 BACTRIM DS 800-160 MG TAB 811296 TRIMETHOPRIM-SULFAMETHOXAZOLE Inac tive CIPRO 500 MG TAB 1 tablet by mouth twice daily CIPRO 500 MG TAB 250610 CIPROFLOXACIN HCL Inactive CIPRO 500 MG TAB 1 tablet by mouth twice daily CIPRO 500 MG TAB 954662 CIPROFLOXACIN HCL Inactive CLARITIN 10 MG TAB 1 tablet by mouth daily as needed for allergi es CLARITIN 10 MG TAB 383743 LORATADINE Inactive FIORICET 325-50-40 MG TAB 1 tablet by mouth four times daily as needed FIORICET 325-50-40 MG TAB ACETAMINOPHEN-C AFF-BUTALBITAL Inactive FLAGYL 500 MG TAB 1 tablet by mouth bid FLAGYL 500 MG TAB 759282 METRONIDAZOLE Inactive IBUPROFEN 800 MG TABS 1 tab every 8 hours with food 31/03/21 IBUPROFEN 800 MG TABS 689872 IBUPROFEN Inactive MAGNESIUM CITRATE 1.745 GM/30ML ORAL SOLN 150ml po BID PRN C onstipation MAGNESIUM CITRATE 1.745 GM/30ML ORAL SOLN 366115 0 MAGNESIUM CITRATE Inactive METOCLOPRAMIDE HCL 10 MG ORAL TABS take one PO tid PRN nausea 20 29/12/14 METOCLOPRAMIDE HCL 10 MG ORAL TABS 080825 METOCLOPRAMID E HCL Inactive PERCOCET 5-325 MG TABS 1 tablet by mouth every 6 hours as needed PERCOCET 5-325 MG TABS 4217535 OXYCODONE-ACETAMINOPHEN I nactive PHENAZOPYRIDINE HCL 200 MG TABS take 1 tab po TID for bladder pa in PHENAZOPYRIDINE HCL 200 MG TABS 5433525 PHENAZOPYRIDINE HCL Inactive PREDNISONE 20 MG TAB 2 tabs daily for 3 days, 1 t ab daily for 3 days, 1/2 tab daily for 2 days PREDNISONE 20 MG TAB 545954 PREDNISON E Inactive PREDNISONE 20 MG TAB 2 tabs daily for 3 days, 1 t ab daily for 3 days, 1/2 tab daily for 2 days PREDNISONE 20 MG TAB 815106 PREDNISON E Inactive PREDNISONE 20 MG TAB 2 tabs daily for 3 days, 1 t ab daily for 3 days, 1/2 tab daily for 2 days PREDNISONE 20 MG TAB 320859 PREDNISON E Inactive PYRIDIUM 200 MG TABS take 1 tab po TID prn urinary pain. 0 PYRIDIUM 200 MG TABS 1856452 PHENAZOPYRIDINE HCL Inactive REGLAN 10 MG TAB 1 po TID PRN Nausea REGLAN 10 MG TAB 696848 METOCLOPRAMIDE HCL Inactive TRAZODONE HCL 100 MG TAB 0.5 to 1 po qHS PRN Insomnia TRAZODONE HCL 100 MG TAB 937479 TRAZODONE HCL Inactive TRIAMCINOLONE ACETONIDE 0.1 % OINT Apply to affected a reas TID for up to 2 weeks TRIAMCINOLONE ACETONIDE 0.1 % OINT 281509 6 TRIAMCINOLONE ACETONIDE Inactive LORTAB 5 5-500 MG TABS 1/2 to 1 tablet by mouth flaquito ry 4 hours as needed for pain LORTAB 5 5-500 MG TABS HYDROCODONE-A CETAMINOPHEN Inactive TERBINAFINE HCL 250 MG ORAL TABS take one table PO one time abran y TERBINAFINE HCL 250 MG ORAL TABS 562182 TERBINAFINE HCL Inactive SUMATRIPTAN SUCCINATE 100 MG ORAL TABS Take one PRN for migrane SUMATRIPTAN SUCCINATE 100 MG ORAL TABS 658580 SUMATRIPT AN SUCCINATE Inactive DIFLUCAN 150 MG TAB 1 tablet by mouth if needed, hold until symptoms start DIFLUCAN 150 MG TAB 972474 FLUCONAZOLE Inactive DIFLUCAN 150 MG TAB 1 tablet by mouth qod DIFLUCAN 150 MG TAB 356210 FLUCONAZOLE Inactive FLUCONAZOLE 150 MG TABS take 1 tab po qday once 04/06 FLUCONAZOLE 150 MG TABS 444430 FLUCONAZOLE Inactive DICLOFENAC SODIUM 75 MG TBEC 1 tablet by mouth twice daily P RN Knee pain DICLOFENAC SODIUM 75 MG TBEC 055729 DICLOFENAC S ODIUM Inactive LAMISIL 250 MG TAB 1 po qd LAMISIL 250 MG TAB 420583 TERBINAFINE HCL Inactive AZITHROMYCIN 250 MG TABS 2 po qd x 1 day, then 1 po qd x 4 days AZITHROMYCIN 250 MG TABS 4386361 AZITHROMYCIN Inactiv e AZITHROMYCIN 250 MG TABS 2 po qd x 1 day, then 1 po qd x 4 days AZITHROMYCIN 250 MG TABS 7173544 AZITHROMYCIN Inactiv e AZITHROMYCIN 250 MG TABS 2 po qd x 1 day, then 1 po qd x 4 days AZITHROMYCIN 250 MG TABS 5162256 AZITHROMYCIN Inactiv e BACTROBAN 2 % CREAM Apply to affected area BID for up to 10 days BACTROBAN 2 % CREAM 254166 MUPIROCIN CALCIUM Inactive CEFDINIR 300 MG CAPS by mouth twice a day CEFDINIR 300 MG CAPS 660753 CEFDINIR Inactive CEFDINIR 300 MG CAPS 1 po bid CEFDINIR 300 MG CAPS 0346 CEFDINIR Inactive CELEXA 20 MG TABS 1 tablet by mouth daily CELEXA 20 MG TABS 487308 CITALOPRAM HYDROBROMIDE Inactive ZOFRAN ODT 4 MG TBDP 1 po q6hr PRN Nausea ZOFRAN ODT 4 MG TBDP 856035 ONDANSETRON Inactive ONDANSETRON [address] one tablet on tongue and allow to dissolve every 6 hours as needed for vomitting ON DANSETRON 8 MG ORAL TBDP 290601 ONDANSETRON Inactive CONCERTA 18 MG CR-TABS 1 po q a.m. CONCERTA 18 MG CR-TABS METHYLPHENIDATE HCL Inactive COMPRO 25 MG RECTAL SUPP insert or apply one supposit ory rectally as directed every 12 hours as needed for nausea COMP RO 25 MG RECTAL SUPP 189804 PROCHLORPERAZINE Inactive ZITHROMAX Z-KARTHIK 250 MG TABS 2 today, then 1 daily for 4 days 201 09/18/28 ZITHROMAX Z-KARTHIK 250 MG TABS 0433376 AZITHROMYCIN Inac tive FLONASE 50 MCG/ACT SUSP 1 spray each nostril am and hs FLONASE 50 MCG/ACT SUSP FLUTICASONE PROPIONATE Inactive PERCOCET 10-325 MG TABS 1 tablet every 6 hours as needed for pain PERCOCET 10-325 MG TABS 9387854 OXYCODONE-ACETAMINOPHEN Inactive HYDROCODONE-ACETAMINOPHEN 5-325 MG TABS 1 po q 6hr PRN Pain 2013 HYDROCODONE-ACETAMINOPHEN 5-325 MG TABS 877900 HYDROCODONE-ACETAMINOPHEN Inactive HYDROCODONE-ACETAMINOPHEN 5-325 MG TABS 0.5 to 1 tab b y mouth every 6 hours as needed HYDROCODONE-ACETAMINOPHEN 5-325 MG TABS 8 37664 HYDROCODONE-ACETAMINOPHEN Inactive HYDROCODONE-ACETAMINOPHEN 5-325 MG TABS 1 tab by mouth every 6 hours as needed HYDROCODONE-ACETAMINOPHEN 5-325 MG TABS 002651 HYDROCODONE-ACETAMINOPHEN Inactive HYDROCODONE-ACETAMINOPHEN 5-325 MG TABS 1/2 to 1 po q 4 hour s prn cough HYDROCODONE-ACETAMINOPHEN 5-325 MG TABS 955482 HYDROCODONE-ACETAMINOPHEN Inactive BUPROPION HCL ER (SR) 100 MG ORAL [id number] take one t ablet by mouth one time daily for one week then take 1 two times daily BUPROPION HCL ER (SR) 100 MG ORAL [id number] BUPROPION HCL Inacti ve FOCALIN XR 10 MG [id number] 1 po q a.m. F OCALIN XR 10 MG [id number] DEXMETHYLPHENIDATE HCL Inactive FLUTICASONE PROPIONATE 50 MCG/ACT NASAL SUSP 2 sprays/ nostril qd PRN Congestion/Allergies FLUTICASONE PROPION ATE 50 MCG/ACT NASAL SUSP 6031715 FLUTICASONE PROPIONATE Inactive FOCALIN XR 15 MG [id number] 1 po q a.m. F OCALIN XR 15 MG [id number] DEXMETHYLPHENIDATE HCL Inactive TRAVEL SICKNESS 25 MG ORAL CHEW chew and swallow one t ablet every 6 hours as needed TRAVEL SICKNESS 25 MG ORAL CHEW 163692 MECLIZINE HCL Inactive CHANTIX STARTING MONTH KARTHIK [...] 11 .6-14.8 platelet count 248 10^3/MM^3 10*3/mm3 982-997 2556/05/27 erythrocyte (RBC) count 4.40 10^6/MM^3 10*6/mm3 4.04-5.4 8 lymphocytes as percent of blood leukocytes 25.1 % 20.5-51.1 monocytes as percent of blood leukocytes 7.6 % 1.7-9.3 neutrophils as percent of blood leukocytes 64.6 % 42.2-75.2 leukocyte count, blood 8.0 10^3/MM^3 10*3/mm3 4.6-10.2 Lab Report: CBC W/DIFF, Comp. Metabolic Panel, Qual [facility] - Chemistry sodium, serum 139 mmol/L 233-886 3428/10/21 carbon dioxide, venous blood 33.5 mmol/L 21.0-32 [...] [facility] - Hematology leukocyte count, blood 7.9 10^3/MM^3 10*3/mm3 4.6-10.2 neutrophils as percent of blood leukocytes 65.5 % 42.2-75.2 monocytes as percent of blood leukocytes 4.1 % 1.7-9.3 hemoglobin, blood 14.8 g/dL 12.0-16.0 hematocrit, blood 43.7 % 36.0-46.0 mean corpuscular volume, RBC 97 fL 80-97 mean corpuscular hemoglobin, RBC 32.6 pg 27. 0-31.2 mean corpuscular hemoglobin concentration, RBC 33.8 G/DL % 31.8-35.4 red blood cell distribution width 13.8 % 11 .6-14.8 platelet count 248 10^3/MM^3 10*3/mm3 434-280 7615/10/21 lymphocytes as percent of blood leukocytes 27.5 % 20.5-51.1 erythrocyte (RBC) count 4.53 10^6/MM^3 10*6/mm3 4.04-5.4 8 Lab Report: CBC-QUEST, COMPREHENSIVE MET ABOLIC PANEL, LIPID PANEL - Chemistry cholesterol, serum 192 mg/dL 375-719 2586/02/20 HDL cholesterol, serum 31 mg/dL > OR = 46 triglyceride, serum, fasting 138 mg/dL <150 LDL cholesterol, serum 133 MG/DL (CALC) mg/dL <130 cholesterol/HDL ratio, serum 6.2 (calc) < OR = 5.0 Lab Report: CBC-QUEST, COMPREHENSIVE MET ABOLIC PANEL, LIPID PANEL - Hematology hemoglobin, blood 13.7 g/dL 11.7-15.5 erythrocyte (RBC) count 4.37 MILLION/UL 10*6/mm3 3.80-5. 10 mean corpuscular volume, RBC 96.5 fL 80.0-10 0.0 mean corpuscular hemoglobin, RBC 31.4 pg 27. 0-33.0 mean corpuscular hemoglobin concentration, RBC 32.6 G/DL % 32.0-36.0 red blood cell distribution width 13.5 % 11 .0-15.0 platelet count 218 THOUSAND/UL 10*3/mm3 940-085 2514/02/20 mean platelet volume 9.7 fL 7.5-12.5 leukocyte count, blood 8.7 THOUSAND/UL 10*3/mm3 3.8-10.8 hematocrit, blood 42.2 % 35.0-45.0 Lab Report: Chlamydia/GC APTIMA/03105 - Lab chlamydia DNA probe NOT DETECTED NOT DETECTED Lab Report: Chlamydia/GC APTIMA/92798 - Microbiology Neisseria gonorrhoeae DNA probe NOT DETECTED NO T DETECTED Lab Report: Comp. Metabolic Panel, Thyro id Stimulating Hormone (L), Eryt ... - Chemistry sodium, serum 137 mmol/L 075-991 6270/05/27 creatinine, serum 0.70 mg/dL 0.55-1.30 alanine aminotransferase [...] Negative Negati ve bilirubin, urine Negative Negative pH, urine, semiquantitative 5.5 5.0-8.5 urobilinogen, urine, semiquantitative (dipstick) 0.2 Normal leukocyte esterase, urine, by dipstick Negative Negative nitrite, urine, semiquantitative Negative Neg ative appearance, urine Clear Clear specific gravity, urine >=1.030 1.000-1.030 urine color Yellow Colorless;Lightyellow;St raw;Yellow Encounters Code Encounter Date Provider Facility CPT-92640 Level 3 Est. Patient 11:29:55 CDT Checo Conklin MD [facility] [place] CPT-51673 Level 4 Est. Patient 11:08:12 CHASER TAR Checo Conklin MD [facility] [place] CPT-01753 Level 4 Est. Patient 16:06:48 CHAS[facility] TAR Checo Conklin MD [facility] [place] CPT-64862 Level 3 Est. Patient 09:11:49 CDT Efren almendarez [facility] [place] CPT-94832 Level 2 Est. Patient 19:53:27 CDT Tanner hill MD [facility] [place] CPT-99426 Level 3 Est. Patient 09:15:34 CDT Efren almendarez [facility] [place] CPT-20172 Level 3 Est. Patient 11:28:51 CHASER TAR Efren almendarez [facility] [place] CPT-62871 Level 4 Est. Patient 13:55:46 CHASER TAR Checo Conklin MD [facility] CPT-69292 Level 4 Est. Patient 17:10:53 CDT hCeco Conklin MD [facility] CPT-40369 Level 3 Est. Patient 15:56:22 CDT Checo Conklin MD [facility] CPT-71433 Level 3 Est. Patient 15:29:07 CDT Checo Conklin MD [facility] CPT-94283 Level 3 Est. Patient 14:38:41 CDT Checo Conklin MD [facility] CPT-18805 Level 3 Est. Patient 15:22:03 CHASER TAR Thomas reynolds DO [facility] CPT-97738 Level 3 Est. Patient 13:34:17 CHASER TAR Checo Conklin MD [facility] CPT-11196 Level 3 Est. Patient 12:29:32 CDT Dangelo arroyo MD [facility] CPT-67534 Level 3 Est. Patient 16:53:02 CDT Checo Conklin MD [facility] CPT-90992 Level 3 Est. Patient 16:37:13 CDT Checo Conklin MD [facility] CPT-62094 Level 3 Est. Patient 16:16:59 CDT Paul Hamlin MD [facility] CPT-64681 Level 3 Est. Patient 14:20:13 CDT Dangelo arroyo MD [facility] CPT-14769 Level 4 Est. Patient 11:29:33 CDT Checo Conklin MD [facility] CPT-68419 Level 3 Est. Patient 17:08:31 CDT Checo Conklin MD [facility] CPT-54528 Level 3 Est. Patient 16:50:42 CHASER TAR Checo Conklin MD [facility] CPT-63412 Level 4 Est. Patient 09:26:08 CHASER TAR Checo Conklin MD [facility] [place] CPT-43693 Level 3 Est. Patient 11:37:10 CDT Checo Conklin MD [facility] CPT-14243 Level 4 Est. Patient 14:07:38 CDT Checo Conklin MD [facility] CPT-27482 Level 3 Est. Patient 09:54:41 CDT Checo Conklin MD [facility] CPT-55559 Level 3 Est. Patient 11:10:54 CDT Paul Hamlin MD [facility] CPT-57551 Level 3 Est. Patient 14:16:56 CHASER TAR Checo Conklin MD [facility] CPT-77325 Level 3 Est. Patient 11:04:11 CHASER TAR Checo Conklin MD [facility] CPT-36094 Level 3 Est. Patient 17:09:26 CDT Dangelo arroyo MD [facility] CPT-79484 Level 3 Est. Patient 16:54:37 CDT Checo Conklin MD [facility] Procedures Code Procedure Name Date Entry Date Standard Desc ription CPT-31846 UA w micro - LAB USE ONLY 17:06:46 CDT 2015 CPT-88007 [facility] Qual - LAB USE ONLY 17:06:46 CDT 05/06 CPT-57513 CMP - LAB USE ONLY 17:06:46 CDT CPT-32164 CBC with Diff - LAB USE ONLY 17:06:45 CDT 2 CPT-44014 Venipuncture Draw Fee 17:06:45 CDT CPT-LR Lesion Removal 19:53:27 CDT CPT-OV Office Visit 11:31:28 CDT CPT-86038 Tubersol 09:39:29 CDT CPT-J2550 Phenergan 25 mg (Promethazine) 13:59:02 CHASER TAR CPT-J1885 Toradol 60 mg (Ketorolac) 13:59:02 CHASER TAR 2012
--- OUTSIDE RECORDS SUMMARY | 2019-09-29 02:21 | XMS REPORT | Clinical Summary ---
Author Author Admin, Bethany Ayala [facility] Address Unknown Phone Unavailable Allergies, Adverse [...] TABLET 1 po qd PAR OXETINE HCL 15702207248 Active Checo Conklin MD Active MIRALAX ORAL POWDER 8.5 to 17g po qd PRN Constipation POLYETHYLENE GLYCOL 3350 [id number] No Longer Active Checo Conklin MD Active PROTONIX 40 MG ORAL TABLET DELAYED RELEASE 1 pill by m outh daily, for acid reflux PANTOPRAZOLE SODIUM 16622675765 No Longer Activ e Corry Méndez LPN Active FLAGYL 500 MG ORAL TABLET 1 tablet by mouth bid 08/29 METRONIDAZOLE 23622106059 No Longer Active Corry Méndez LPN Active CLARITHROMYCIN 500 MG ORAL TABLET 1 tab po BID x 14 days CLARITHROMYCIN 20464101031 No Longer Active Corry Méndez LPN Active AMOXICILLIN 500 MG ORAL CAPSULE 2 po BID x 14 days for H. Pylori AMOXICILLIN 50699474318 No Longer Active Corry Méndez LPN Active FLUTICASONE PROPIONATE 50 MCG/ACT NASAL SUSPENSION 2 s prays/nostril qd PRN Congestion/Allergies FLUTICASONE PROPIONATE 1437427886 9 No Longer Active Checo Conklin MD Active AMOXICILLIN 500 MG ORAL CAPSULE 2 po BID x 10 days 201 01/15/27 AMOXICILLIN 93961432691 No Longer Active Checo Conklin MD Activ e CLARITIN 10 MG ORAL TABLET 1 tablet by mouth daily as needed for allergies LORATADINE 06056651302 No Longer Active Checo Ortiz MD Active BACTRIM DS 800-160 MG ORAL TABLET 1 tab by mouth twice daily 201 12/19/26 TRIMETHOPRIM-SULFAMETHOXAZOLE 14438534918 No Longer Active Ragini Carrillo MD Active DIFLUCAN 150 MG ORAL TABLET 1 tablet by mouth qod 2015 FLUCONAZOLE 47524245656 No Longer Active Efren Medel APRN Act mike AZITHROMYCIN 250 MG ORAL TABLET 2 po qd x 1 day, then 1 po q d x 4 days AZITHROMYCIN 83999049345 No Longer Active Efren flores APRN Active FLAGYL 500 MG ORAL TABLET 1 tablet by mouth bid 04/13 METRONIDAZOLE 67746131343 No Longer Active Checo Conklin MD Acti ve FOCALIN XR 10 MG ORAL CAPSULE EXTENDED RELEASE 24 HOUR 1 po q a.m. DEXMETHYLPHENIDATE HCL 87308899405 Active Checo Conklin MD Active MAGNESIUM CITRATE 1.745 GM/30ML ORAL SOLUTION 150ml po BID P RN Constipation MAGNESIUM CITRATE 13542506392 No Longer Active Checo Conklin MD Active BACTROBAN 2 % EXTERNAL CREAM Apply to affected area BID for up to 10 days MUPIROCIN CALCIUM 01432986967 No Longer Active Checo Conklin MD Active HYDROCODONE-ACETAMINOPHEN 5-325 MG ORAL TABLET 1 tab b y mouth every 6 hours as needed HYDROCODONE-ACETAMINOPHEN 77698943430 No Longer Active Checo Conklin MD Active IBUPROFEN 800 MG ORAL TABLET 1 tab every 8 hours with food 03/20 IBUPROFEN 51138550895 No Longer Active Checo Conklin MD Active DIFLUCAN 150 MG ORAL TABLET 1 tablet by mouth if neede d, hold until symptoms start FLUCONAZOLE 59928741121 No Longer Active Checo Conklin MD Active BACTRIM DS 800-160 MG ORAL TABLET 1 tab by mouth twice daily 201 11/23/03 TRIMETHOPRIM-SULFAMETHOXAZOLE 18077899951 No Longer Active K bernice Méndez LPN Active HYDROCODONE-ACETAMINOPHEN 5-325 MG ORAL TABLET 0.5 to 1 tab by mouth every 6 hours as needed HYDROCODONE-ACETAMINOPHEN 36307202317 No Longer Active Checo Conklin MD Active ONDANSETRON 8 MG ORAL TABLET DISINTEGRATING place one tablet on tongue and allow to dissolve every 6 hours as needed for vomitting ONDANSETRON 83747553600 No Longer Active Checo Conklin MD Activ e COMPRO 25 MG RECTAL SUPPOSITORY insert or apply one garza ppository rectally as directed every 12 hours as needed for nausea PROCHLORPERAZINE 54053984765 No Longer Active Checo Conklin MD A ctive SUMATRIPTAN SUCCINATE 100 MG ORAL TABLET Take one PRN for migran e SUMATRIPTAN SUCCINATE 69673929110 No Longer Active Checo Conklin MD Active TRAVEL SICKNESS 25 MG ORAL TABLET CHEWABLE chew and sw allow one tablet every 6 hours as needed MECLIZINE HCL 70182426268 No Longer A ctive Checo Conklin MD Active BUPROPION HCL ER (SR) 100 MG ORAL TABLET EXTENDED RELE ASE 12 HOUR take one tablet by mouth one time daily for one week then take 1 two times daily BUPROPION HCL 22388278565 No Longer Active Checo gallagher MD Active TERBINAFINE HCL 250 MG ORAL TABLET take one table PO one time da moises TERBINAFINE HCL 56243735341 No Longer Active Checo Conklin MD Active METOCLOPRAMIDE HCL 10 MG ORAL TABLET take one PO tid PRN nausea METOCLOPRAMIDE HCL 30952115510 No Longer Active Checo Conklin MD Active DICLOFENAC SODIUM 75 MG ORAL TABLET DELAYED RELEASE 1 tablet by mouth twice daily PRN Knee pain DICLOFENAC SODIUM 96290791855 No Longer Active Checo Conklin MD Active LAMISIL 250 MG ORAL TABLET 1 po qd TERBINAFI NE HCL 84808866536 No Longer Active Checo Conklin MD Active REGLAN 10 MG ORAL TABLET 1 po TID PRN Nausea 3 METOCLOPRAMIDE HCL 87387809961 No Longer Active Checo Conklin MD Active CELEXA 20 MG ORAL TABLET 1 tablet by mouth daily 09/26 CITALOPRAM HYDROBROMIDE 42292391729 No Longer Active Checo Conklin MD Active AZITHROMYCIN 250 MG ORAL TABLET 2 po qd x 1 day, then 1 po q d x 4 days AZITHROMYCIN 88473742228 No Longer Active Checo Ortiz MD Active HYDROCODONE-ACETAMINOPHEN 5-325 MG ORAL TABLET 1 po q 6hr PRN Pa in HYDROCODONE-ACETAMINOPHEN 62618367766 No Longer Active Lenora Conklin MD Active PHENAZOPYRIDINE HCL 200 MG ORAL TABLET take 1 tab po TID for bladder pain PHENAZOPYRIDINE HCL 59009980908 No Longer Active Joe Conklin MD Active CIPRO 500 MG ORAL TABLET 1 tablet by mouth twice daily CIPROFLOXACIN HCL 62405885128 No Longer Active Dangelo Rangel MD Active HYDROCODONE-ACETAMINOPHEN 5-325 MG ORAL TABLET 1/2 to 1 po q 4 hours prn cough HYDROCODONE-ACETAMINOPHEN 54825923004 No Longer Activ e Dangelo Rangel MD Active BACTRIM DS 800-160 MG ORAL TABLET 1 po BID x 7 days 29/04/10 SULFAMETHOXAZOLE-TRIMETHOPRIM 56742048733 No Longer Active Checo Conklin MD Active PREDNISONE 20 MG ORAL TABLET 2 tabs daily for 3 days, 1 tab daily for 3 days, 1/2 tab daily for 2 days PREDNISONE 40429511552 No Longer Active Checo Conklin MD Active TRIAMCINOLONE ACETONIDE 0.1 % EXTERNAL OINTMENT Apply to affected areas TID for up to 2 weeks TRIAMCINOLONE ACETONIDE 50968127544 No Longer Active Checo Conklin MD Active CEFDINIR 300 MG ORAL CAPSULE by mouth twice a day 2013 CEFDINIR 14830464958 No Longer Active Dangelo Rangel MD Acti ve BUPROPION HCL ER (SMOKING DET) 150 MG ORAL TABLET EXTE NDED RELEASE 12 HOUR 1 a day for 1 week then 1 twice a day BUPROPION HCL (SMOKING DETER) 09370758965 No Longer Active Checo Conklin MD Active SIMVASTATIN 20 MG ORAL TABLET 1 po qd SIMVASTAT IN 96305694198 Active Checo Conklin MD Active CHANTIX STARTING MONTH KARTHIK 0.5 MG X 11 & 1 MG X 42 ORA L TABLET 0.5mg daily for 3 days, then 0.5mg BID for 4 days, then 1mg BID VARENICLINE TARTRATE 04443932574 No Longer Active Checo Conklin MD Activ e XANAX 0.5 MG ORAL TABLET 1 po BID PRN anxiety A LPRAZOLAM 83068744740 Active Checo Conklin MD Active CONCERTA 18 MG ORAL TABLET EXTENDED RELEASE 1 po q a.m. METHYLPHENIDATE HCL 37651445937 No Longer Active Checo Conklin MD Active AMBIEN 5 MG ORAL TABLET 1 po qHS PRN Insomnia Z OLPIDEM TARTRATE 80428436854 Active Checo Conklin MD Active TRAZODONE HCL 100 MG ORAL TABLET 0.5 to 1 po qHS PRN Insomnia 20 30/07/08 TRAZODONE HCL 47571156032 No Longer Active Checo Conklin MD Active FIORICET 325-50-40 MG TAB 1 tablet by mouth four times daily as needed [id number] 10897152152 No Longer Active Checo Conklin MD Active PHENERGAN CREAM* 25mg applied to wrist q6hr PRN Nausea PHENERGAN CREAM* No Longer Active Checo Conklin MD A ctive FLONASE 50 MCG/ACT NASAL SUSPENSION 1 spray each nostril am and hs FLUTICASONE PROPIONATE 01875163037 No Longer Active Checo Conklin MD Active ANTIPYRINE-BENZOCAINE 5.4-1.4 % OTIC SOLUTION 1-2 drops in affec yohannes ear BENZOCAINE-ANTIPYRINE 78721096484 No Longer Active Checo Conklin MD Active CEFDINIR 300 MG ORAL CAPSULE 1 po bid CEFDINIR 38641043481 No Longer Active Checo Conklin MD Active PREDNISONE 20 MG ORAL TABLET 2 tabs daily for 3 days, 1 tab daily for 3 days, 1/2 tab daily for 2 days PREDNISONE 75575032943 No Longer Active Checo Conklin MD Active AZITHROMYCIN 250 MG ORAL TABLET 2 po qd x 1 day, then 1 po q d x 4 days AZITHROMYCIN 95701399158 No Longer Active Checo Ortiz MD Active PREDNISONE 20 MG ORAL TABLET 2 tabs daily for 3 days, 1 tab daily for 3 days, 1/2 tab daily for 2 days PREDNISONE 78312041880 No Longer Active Checo Conklin MD Active ZITHROMAX Z-KARTHIK 250 MG ORAL TABLET 2 today, then 1 daily for 4 d ays AZITHROMYCIN 11593840960 No Longer Active Paul Hamlin MD Active FOCALIN XR 10 MG ORAL CAPSULE EXTENDED RELEASE 24 HOUR 1 po q a. m. DEXMETHYLPHENIDATE HCL 40927182800 No Longer Active Paul Hamlin MD Active PERCOCET 10-325 MG ORAL TABLET 1 tablet every 6 hours as needed for pain OXYCODONE-ACETAMINOPHEN 08324236942 No Longer Active Paul Hamlin MD Active LORTAB 5-500 MG ORAL TABLET 1/2 to 1 tablet by mouth e very 4 hours as needed for pain HYDROCODONE-ACETAMINOPHEN 77569113721 No Longer Active Checo Conklin MD Active FOCALIN XR 15 MG ORAL CAPSULE EXTENDED RELEASE 24 HOUR 1 po q a. m. DEXMETHYLPHENIDATE HCL 06086086003 No Longer Active Checo Conklin MD Active ZOFRAN ODT 4 MG ORAL TABLET DISINTEGRATING 1 po q6hr PRN Nausea ONDANSETRON 70220462933 No Longer Active Checo Conklin MD Active PERCOCET 5-325 MG ORAL TABLET 1 tablet by mouth every 6 hour s as needed OXYCODONE-ACETAMINOPHEN 91250556693 No Longer Active Checo Conklin MD Active PYRIDIUM 200 MG ORAL TABLET take 1 tab po TID prn urinary pain. PHENAZOPYRIDINE HCL 87059736289 No Longer Active Checo Joshua Active FLUCONAZOLE 150 MG ORAL TABLET take 1 tab po qday once FLUCONAZOLE 43978850101 No Longer Active Dangelo Rangel MD Acti ve CIPRO 500 MG ORAL TABLET 1 tablet by mouth twice daily CIPROFLOXACIN HCL 85614303397 No Longer Active Dangelo Rangel MD Active PYRIDIUM 200 MG ORAL TABLET take 1 tab po TID prn urinary pain. PYRIDIUM 200 MG ORAL TABLET 2785392 PHENAZOPYRIDINE HCL Inactive PERCOCET 5-325 MG ORAL TABLET 1 tablet by mouth every 6 hour s as needed PERCOCET 5-325 MG ORAL TABLET 1377804 OXYCODONE-ACETAMINOPHEN Inactive ZOFRAN ODT 4 MG ORAL TABLET DISINTEGRATING 1 po q6hr PRN Nausea ZOFRAN ODT 4 MG ORAL TABLET DISINTEGRATING 845400 ONDAN SETRON Inactive FOCALIN XR 15 MG [...] for pain PERCOCET 10-325 MG ORAL TABLET 1463563 OXYCODONE-ACETAMI NOPHEN Inactive FOCALIN XR 10 MG ORAL CAPSULE EXTENDED RELEASE 24 HOUR 1 po q a. m. FOCALIN XR 10 MG ORAL CAPSULE EXTENDED RELEASE 24 HOUR DEXMETHYLPHENIDATE HCL Inactive CEFDINIR 300 MG ORAL CAPSULE 1 po bid CEFDINI R 300 MG ORAL CAPSULE 887552 CEFDINIR Inactive ANTIPYRINE-BENZOCAINE 5.4-1.4 % OTIC SOLUTION 1-2 drops in affec yohannes ear ANTIPYRINE-BENZOCAINE 5.4-1.4 % OTIC SOLUTION 669973 BENZOCAINE-ANTIPYRINE Inactive FLONASE 50 MCG/ACT NASAL SUSPENSION 1 spray each nostril am and hs FLONASE 50 MCG/ACT NASAL SUSPENSION 1667526 FLUTICASONE PROPIONATE I nactive PHENERGAN CREAM* 25mg applied to wrist q6hr PRN Nausea PHENERGAN CREAM* Inactive FIORICET 325-50-40 MG TAB 1 tablet by mouth four times daily as needed FIORICET 325-50-40 MG TAB ACETAMINOPHEN-C AFF-BUTALBITAL Inactive TRAZODONE HCL 100 MG ORAL TABLET 0.5 to 1 po qHS PRN Insomnia 20 30/07/08 TRAZODONE HCL 100 MG ORAL TABLET 797246 TRAZODONE HCL Inactive CONCERTA 18 MG ORAL [...] cough HYDROCODONE-ACETAMINOPHEN 5-325 MG ORAL TABLET 8 49244 HYDROCODONE-ACETAMINOPHEN Inactive PHENAZOPYRIDINE HCL 200 MG ORAL TABLET take 1 tab po TID for bladder pain PHENAZOPYRIDINE HCL 200 MG ORAL TABLET 7995302 PHENAZOPYRIDINE HCL Inactive HYDROCODONE-ACETAMINOPHEN 5-325 MG ORAL TABLET 1 po q 6hr PRN Pa in HYDROCODONE-ACETAMINOPHEN 5-325 MG ORAL TABLET 448706 HYDROCODONE-ACETAMINOPHEN Inactive CELEXA 20 MG ORAL TABLET 1 tablet by mouth daily 09/26 CELEXA 20 MG ORAL TABLET 962015 CITALOPRAM HYDROBROMIDE Inactive REGLAN 10 MG ORAL TABLET 1 po TID PRN Nausea 3 REGLAN 10 MG ORAL TABLET 619150 METOCLOPRAMIDE HCL Inactive LAMISIL 250 MG ORAL TABLET 1 po qd L AMISIL 250 MG ORAL TABLET 110518 TERBINAFINE HCL Inactive DICLOFENAC SODIUM 75 MG ORAL TABLET DELAYED RELEASE 1 tablet by mouth twice daily PRN Knee pain DICLOFENAC SODIUM 75 MG ORAL TABLET DELAYED RELEASE 322113 DICLOFENAC SODIUM Inactive METOCLOPRAMIDE HCL 10 MG ORAL TABLET take one PO tid PRN nausea METOCLOPRAMIDE HCL 10 MG ORAL TABLET 112488 METOCLOPRAM ZACH HCL Inactive TERBINAFINE HCL 250 MG ORAL TABLET take one table PO one time da moises TERBINAFINE HCL 250 MG ORAL TABLET 037715 TERBINAFINE H CL Inactive BUPROPION HCL ER [...] SICKNESS 25 M G ORAL TABLET CHEWABLE 389137 MECLIZINE HCL Inactive SUMATRIPTAN SUCCINATE 100 MG ORAL TABLET Take one PRN for migran e SUMATRIPTAN SUCCINATE 100 MG ORAL TABLET 677814 SUMATRIPTAN SUCCINATE Inactive COMPRO 25 MG RECTAL SUPPOSITORY insert or apply one garza ppository rectally as directed every 12 hours as needed for nausea COMPRO 25 MG RECTAL SUPPOSITORY 341751 PROCHLORPERAZINE Inactive ONDANSETRON 8 MG ORAL TABLET DISINTEGRATING place one tablet on tongue and allow to dissolve every 6 hours as needed for vomitting ONDANSETRON 8 MG ORAL TABLET DISINTEGRATING 309112 ONDANSETRON Inactive HYDROCODONE-ACETAMINOPHEN 5-325 MG ORAL TABLET 0.5 to 1 tab by mouth every 6 hours as needed HYDROCODONE-ACETAMIN OPHEN 5-325 MG ORAL TABLET 930800 HYDROCODONE-ACETAMINOPHEN Inactive BACTRIM DS 800-160 MG ORAL TABLET 1 tab by mouth twice daily 201 11/23/03 BACTRIM DS 800-160 MG ORAL TABLET 111135 TRIMETHOPRIM-SULFAMETHOXAZOLE Inactive DIFLUCAN 150 MG ORAL TABLET 1 tablet by mouth if neede d, hold until symptoms start DIFLUCAN 150 MG ORAL TABLET 19760325 FLUCONAZ OLE Inactive IBUPROFEN 800 MG ORAL TABLET 1 tab every 8 hours with food 03/20 IBUPROFEN 800 MG ORAL TABLET IBUPROFEN [facility] HYDROCODONE-ACETAMINOPHEN 5-325 MG ORAL TABLET 1 tab b y mouth every 6 hours as needed HYDROCODONE-ACETAMINOPHEN 5-325 MG ORAL TABLET 377120 HYDROCODONE-ACETAMINOPHEN Inactive BACTROBAN 2 % EXTERNAL CREAM Apply to affected area BID for up to 10 days BACTROBAN 2 % EXTERNAL CREAM 164408 MUPIROCIN CA LCIUM Inactive MAGNESIUM CITRATE 1.745 GM/30ML ORAL SOLUTION 150ml po BID P RN Constipation MAGNESIUM CITRATE 1.745 GM/30ML ORAL SOLUTION 10 83733 MAGNESIUM CITRATE Inactive DIFLUCAN 150 MG ORAL TABLET 1 tablet by mouth qod 2015 DIFLUCAN 150 MG ORAL TABLET 706402 FLUCONAZOLE Inactive BACTRIM DS 800-160 MG ORAL TABLET 1 tab by mouth twice daily 201 12/19/26 BACTRIM DS 800-160 MG ORAL TABLET 278073 TRIMETHOPRIM-SULFAMETHOXAZOLE Inactive CLARITIN 10 MG ORAL TABLET 1 tablet by mouth daily as needed for allergies CLARITIN 10 MG ORAL TABLET 044990 LORATADINE I nactive FLUTICASONE PROPIONATE 50 MCG/ACT NASAL SUSPENSION 2 s prays/nostril qd PRN Congestion/Allergies FLUTICASONE PROPION ATE 50 MCG/ACT NASAL SUSPENSION 5450932 FLUTICASONE PROPIONATE Inactive MIRALAX ORAL POWDER 8.5 to 17g po qd PRN Constipation MIRALAX ORAL POWDER 130006 POLYETHYLENE GLYCOL 3350 Inactive CIPRO 500 MG ORAL TABLET 1 tablet by mouth twice daily CIPRO 500 MG ORAL TABLET 722859 CIPROFLOXACIN HCL Inactive FLUCONAZOLE 150 MG ORAL TABLET take 1 tab po qday once FLUCONAZOLE 150 MG ORAL TABLET 673960 FLUCONAZOLE Inactive ZITHROMAX Z-KARTHIK 250 MG ORAL TABLET 2 today, then 1 daily for 4 d ays ZITHROMAX Z-KARTHIK 250 MG ORAL TABLET 204189 AZITHROMYCIN Inactive PREDNISONE 20 MG ORAL TABLET 2 tabs daily for 3 days, 1 tab daily for 3 days, 1/2 tab daily for 2 days PREDNISONE 20 MG ORAL T ABLET 426448 PREDNISONE Inactive AZITHROMYCIN 250 MG ORAL TABLET 2 po qd x 1 day, then 1 po q d x 4 days AZITHROMYCIN 250 MG ORAL TABLET 155112 AZITHROMY SPARKLE Inactive PREDNISONE 20 MG ORAL TABLET 2 tabs daily for 3 days, 1 tab daily for 3 days, 1/2 tab daily for 2 days PREDNISONE 20 MG ORAL TABLET 758060 PREDNISONE Inactive CEFDINIR 300 MG ORAL CAPSULE by mouth twice a day 2013 CEFDINIR 300 MG ORAL CAPSULE 824861 CEFDINIR Inactive TRIAMCINOLONE ACETONIDE 0.1 % EXTERNAL OINTMENT Apply to affected areas TID for up to 2 weeks TRIAMCINOLONE ACETON ZACH 0.1 % EXTERNAL OINTMENT 0536371 TRIAMCINOLONE ACETONIDE Inactive PREDNISONE 20 MG ORAL TABLET 2 tabs daily for 3 days, 1 tab daily for 3 days, 1/2 tab daily for 2 days PREDNISONE 20 MG ORAL T ABLET 965787 PREDNISONE Inactive BACTRIM DS 800-160 MG ORAL TABLET 1 po BID x 7 days 29/04/10 BACTRIM DS 800-160 MG ORAL TABLET 387226 SULFAMETHOXAZOLE-TRIMETHOP RIM Inactive CIPRO 500 MG ORAL TABLET 1 tablet by mouth twice daily CIPRO 500 MG ORAL TABLET 229340 CIPROFLOXACIN HCL Inactive AZITHROMYCIN 250 MG ORAL TABLET 2 po qd x 1 day, then 1 po q d x 4 days AZITHROMYCIN 250 MG ORAL TABLET 512727 AZITHROMY SPARKLE Inactive FLAGYL 500 MG ORAL TABLET 1 tablet by mouth bid 04/13 FLAGYL 500 MG ORAL TABLET 878724 METRONIDAZOLE Inactive AZITHROMYCIN 250 MG ORAL TABLET 2 po qd x 1 day, then 1 po q d x 4 days AZITHROMYCIN 250 MG ORAL TABLET 728094 AZITHROMY SPARKLE Inactive AMOXICILLIN 500 MG ORAL CAPSULE 2 po BID x 10 days 201 01/15/27 AMOXICILLIN 500 MG ORAL CAPSULE 915324 AMOXICILLIN Inactive AMOXICILLIN 500 MG ORAL CAPSULE 2 po BID x 14 days for H. Pylori AMOXICILLIN 500 MG ORAL CAPSULE 493984 AMOXICILLIN Inactive CLARITHROMYCIN 500 MG ORAL TABLET 1 tab po BID x 14 days CLARITHROMYCIN 500 MG ORAL TABLET 574905 CLARITHROMYCIN Inacti ve FLAGYL 500 MG ORAL TABLET 1 tablet by mouth bid 08/29 FLAGYL 500 MG ORAL TABLET 355410 METRONIDAZOLE Inactive PROTONIX 40 MG ORAL TABLET DELAYED RELEASE 1 pill by m outh daily, for acid reflux PROTONIX 40 MG ORAL TABLET DELAYED RELEAS E 380092 PANTOPRAZOLE SODIUM Inactive Immunizations Vaccine Administration Date [...] ... - Chemistry sodium, serum 139 mmol/L 946-308 5109/11/28 carbon dioxide, venous blood 26.0 mmol/L 21.0-32 [...] 5.0-8.5 Encounters Code Encounter Date Provider Facility CPT-80032 Level 4 Est. Patient 08:57:51 OVEN OPERATOR Checo Conklin MD [facility] CPT-19748 Level 3 Est. Patient 11:24:55 OVEN OPERATOR Efren almendarez [facility] [place] CPT-59146 Level 3 Est. Patient 13:05:44 CDT Paul Hamlin MD [facility] CPT-32506 Level 3 Est. Patient 11:29:55 CDT Checo Conklin MD [facility] CPT-97825 Level 4 Est. Patient 11:08:12 OVEN OPERATOR Checo Conklin MD [facility] CPT-64950 Level 4 Est. Patient 16:06:48 OVEN OPERATOR Checo Conklin MD [facility] CPT-72677 Level 3 Est. Patient 09:11:49 CDT Efren almendarez [facility] [place] CPT-98543 Level 2 Est. Patient 19:53:27 CDT Tanner hill MD [facility] CPT-40637 Level 3 Est. Patient 09:15:34 CDT Efren almendarez [facility] [place] CPT-55656 Level 3 Est. Patient 11:28:51 OVEN OPERATOR Efren almendarez [facility] [place] CPT-75946 Level 4 Est. Patient 13:55:46 OVEN OPERATOR Checo Conklni MD [facility] CPT-23795 Level 4 Est. Patient 17:10:53 CDT Checo Conklin MD [facility] CPT-16494 Level 3 Est. Patient 15:56:22 CDT Checo Conklin MD [facility] CPT-83501 Level 3 Est. Patient 15:29:07 CDT Checo Conklin MD [facility] CPT-86422 Level 3 Est. Patient 14:38:41 CDT Checo Conklin MD [facility] CPT-38117 Level 3 Est. Patient 15:22:03 OVEN OPERATOR Thomas reynolds DO [facility] CPT-41737 Level 3 Est. Patient 13:34:17 OVEN OPERATOR Checo Conklin MD [facility] CPT-57603 Level 3 Est. Patient 12:29:32 CDT Dangelo arroyo MD [facility] CPT-65481 Level 3 Est. Patient 16:53:02 CDT Checo Conklin MD [facility] CPT-89980 Level 3 Est. Patient 16:37:13 CDT Checo Conklin MD [facility] CPT-04183 Level 3 Est. Patient 16:16:59 CDT Paul Hamlin MD [facility] CPT-98735 Level 3 Est. Patient 14:20:13 CDT Dangelo arroyo MD [facility] CPT-85419 Level 4 Est. Patient 11:29:33 CDT Checo Conklin MD [facility] CPT-50075 Level 3 Est. Patient 17:08:31 CDT Checo Conklin MD [facility] CPT-31851 Level 3 Est. Patient 16:50:42 OVEN OPERATOR Checo Conklin MD [facility] CPT-31647 Level 4 Est. Patient 09:26:08 OVEN OPERATOR Checo Conklin MD [facility] CPT-11415 Level 3 Est. Patient 11:37:10 CDT Checo Conklin MD [facility] CPT-83113 Level 4 Est. Patient 14:07:38 CDT Checo Conklin MD [facility] CPT-49770 Level 3 Est. Patient 09:54:41 CDT Checo Conklin MD [facility] CPT-66561 Level 3 Est. Patient 11:10:54 CDT Paul Hamlin MD [facility] CPT-72196 Level 3 Est. Patient 14:16:56 OVEN OPERATOR Checo Conklin MD [facility] CPT-55336 Level 3 Est. Patient 11:04:11 OVEN OPERATOR Checo Conklin MD [facility] CPT-84940 Level 3 Est. Patient 17:09:26 CDT Dangelo arroyo MD [facility] CPT-34978 Level 3 Est. Patient 16:54:37 CDT Checo Conklin MD [facility] Procedures Code Procedure Name Date Entry Date Standard Desc ription CPT-24074 Abd compl w upright - XRAY USE ONLY 1 1:36:54 OVEN OPERATOR CPT-10738 UA w micro - LAB USE ONLY 17:06:46 CDT 2015 CPT-31191 BHCG Qual - LAB USE ONLY 17:06:46 CDT 05/06 CPT-85306 CMP - LAB USE ONLY 17:06:46 CDT CPT-11565 CBC with Diff - LAB USE ONLY 17:06:45 CDT 2 CPT-70335 Venipuncture Draw Fee 17:06:45 CDT CPT-LR Lesion Removal 19:53:27 CDT CPT-OV Office Visit 11:31:28 CDT CPT-03466 Tubersol 09:39:29 CDT CPT-J2550 Phenergan 25 mg (Promethazine) 13:59:02 OVEN OPERATOR CPT-J1885 Toradol 60 mg (Ketorolac) 13:59:02 OVEN OPERATOR 2012
--- OUTSIDE RECORDS SUMMARY | 2019-09-29 02:21 | XMS REPORT | Clinical Summary ---
Author Author Admin, Bethany Ayala [facility] Address Unknown Phone [...] APRN Acute pharyngitis Cough 786.2 Active Efren eMdel APRN Cough FH DIABETES ICD-V18.0 Inactive Checo Conklin MD 201 08/27/26 CONCUSSION ICD-850.9 Inactive Checo Joshua UTI ICD-599.0 Inactive Checo Conklin MD 2013 [facility] BREAST CANCER ICD-V16.3 Inactive Checo Joshua PHARYNGITIS ICD-462 Inactive Checo Conklin MD OTITIS MEDIA-RIGHT ICD-382.9 Inactive Checo Conklin MD ABDOMINAL PAIN RIGHT LOWER QUADRANT ICD-789.03 Inactive Checo Conklin MD HEADACHE, TENSION ICD-307.81 Inactive Checo Conklin MD Insomnia ICD-780.52 Inactive Checo Joshua Breast mass, right ICD-611.72 Inactive Checo Conklin MD Hypoglycemia, unspecified ICD-251.2 Inactive Checo Conklin MD Onychomycosis, toenails ICD-110.1 Inactive Aracelis Conklin MD Insect bite ICD-919.4 Inactive Checo Conklin MD Carbuncle/furuncle NOS ICD-680.9 Inactive Hilaria Conklin MD Mastalgia ICD-611.71 Inactive Checo Joshua Abdominal pain ICD-789.00 Inactive Checo ngo MD Knee pain, right ICD-719.46 Inactive Checo gallagher MD Vertigo ICD-780.4 Inactive Checo Conklin MD 2014 Abscess, skin ICD-682.9 Inactive Checo richey MD BRONCHITIS, ACUTE ICD-466.0 Inactive Checo gallagher MD Sinusitis ICD-461.9 Inactive Checo Conklin MD Bacterial vaginosis ICD-616.10 Inactive Lenora Conklin MD Medication List Medication Instructions Start Date Stop Date Generic Name NDC Status Provider Patient Instruction DIFLUCAN 150 MG TAB 1 tablet by mouth qod FLUCONA ZOLE 70187282631 Active Jillina Frazell DOCUMENT MANAGER Active CLARITIN 10 MG TAB 1 tablet by mouth daily as needed for allergies LORATADINE 67889949282 Active Jillina Frazell DOCUMENT MANAGER Active AZITHROMYCIN 250 MG TABS 2 po qd x 1 day, then 1 po qd x 4 days AZITHROMYCIN 40889117166 No Longer Active Jillina Frazell DOCUMENT MANAGER Active FLAGYL 500 MG TAB 1 tablet by mouth bid METRONI DAZOLE 16043852202 No Longer Active Checo Conklin MD Active FOCALIN XR 10 MG ORAL [id number] 1 po q a.m. DEX METHYLPHENIDATE HCL 42915438592 Active Checo Conklin MD Active MAGNESIUM CITRATE 1.745 GM/30ML ORAL SOLN 150ml po BID PRN C onstipation MAGNESIUM CITRATE 71802270710 No Longer Active Checo Conklin MD Active BACTROBAN 2 % CREAM Apply to affected area BID for up to 10 days MUPIROCIN CALCIUM 89498790530 No Longer Active Checo Conklin MD Active HYDROCODONE-ACETAMINOPHEN 5-325 MG TABS 1 tab by mouth every 6 hours as needed HYDROCODONE-ACETAMINOPHEN 46344613470 No Longer Activ e Checo Conklin MD Active IBUPROFEN 800 MG TABS 1 tab every 8 hours with food 31/03/21 IBUPROFEN 02344079807 No Longer Active Checo Conklin MD Activ e DIFLUCAN 150 MG TAB 1 tablet by mouth if needed, hold until symptoms start FLUCONAZOLE 32035365792 No Longer Active Checo Ortiz MD Active BACTRIM DS 800-160 MG TAB 1 tab by mouth twice daily 2 TRIMETHOPRIM-SULFAMETHOXAZOLE 59623071043 No Longer Active Corry leong LPN Active MIRALAX PACK 1 po qd PRN Constipation POLYETHYL JOEL GLYCOL 3350 90382469793 Active Checo Conklin MD Active HYDROCODONE-ACETAMINOPHEN 5-325 MG TABS 0.5 to 1 tab b y mouth every 6 hours as needed HYDROCODONE-ACETAMINOPHEN 54134800267 No Longer Active Checo Conklin MD Active ONDANSETRON [address] one tablet on tongue and allow to dissolve every 6 hours as needed for vomitting ONDANSETRO N 07652669043 No Longer Active Checo Conklin MD Active COMPRO 25 MG RECTAL SUPP insert or apply one supposit ory rectally as directed every 12 hours as needed for nausea PROCHLORPERA ZINE 05381608482 No Longer Active Checo Conklin MD Active SUMATRIPTAN SUCCINATE 100 MG ORAL TABS Take one PRN for migrane SUMATRIPTAN SUCCINATE 43318520604 No Longer Active Checo Conklin MD Active TRAVEL SICKNESS 25 MG ORAL CHEW chew and swallow one t ablet every 6 hours as needed MECLIZINE HCL 88268113834 No Longer Active Joe Conklin MD Active BUPROPION HCL ER (SR) 100 MG ORAL [id number] take one t ablet by mouth one time daily for one week then take 1 two times daily BUPROPION HCL 30675354903 No Longer Active Checo Conklin MD Activ e TERBINAFINE HCL 250 MG ORAL TABS take one table PO one time abran y TERBINAFINE HCL 76638638279 No Longer Active Checo Conklin MD Active METOCLOPRAMIDE HCL 10 MG ORAL TABS take one PO tid PRN nausea 20 29/12/14 METOCLOPRAMIDE HCL 48016264216 No Longer Active Checo Conklin MD Active DICLOFENAC SODIUM 75 MG TBEC 1 tablet by mouth twice daily P RN Knee pain DICLOFENAC SODIUM 05749798213 No Longer Active Checo Conklin MD Active LAMISIL 250 MG TAB 1 po qd TERBINAFINE HCL 548 55856482 No Longer Active Checo Conklin MD Active REGLAN 10 MG TAB 1 po TID PRN Nausea METOCLOPRA MIDE HCL 91349010489 No Longer Active Checo Conklin MD Active CELEXA 20 MG TABS 1 tablet by mouth daily CITALOPRAM HYDROBROMIDE 72951757941 No Longer Active Checo Conklin MD Activ e AZITHROMYCIN 250 MG TABS 2 po qd x 1 day, then 1 po qd x 4 days AZITHROMYCIN 20752806360 No Longer Active Checo Conklin MD Active HYDROCODONE-ACETAMINOPHEN 5-325 MG TABS 1 po q 6hr PRN Pain 2013 HYDROCODONE-ACETAMINOPHEN 25913595866 No Longer Active Lenora Conklin MD Active PHENAZOPYRIDINE HCL 200 MG TABS take 1 tab po TID for bladder pa in PHENAZOPYRIDINE HCL 94777667894 No Longer Active Checo Joshua Active CIPRO 500 MG TAB 1 tablet by mouth twice daily CIPROFLOXACIN HCL 64337154221 No Longer Active Dangelo Rangel MD Active HYDROCODONE-ACETAMINOPHEN 5-325 MG TABS 1/2 to 1 po q 4 hour s prn cough HYDROCODONE-ACETAMINOPHEN 01991276528 No Longer Activ e Dangelo Rangel MD Active BACTRIM DS 800-160 MG TABS 1 po BID x 7 days 0 SULFAMETHOXAZOLE-TRIMETHOPRIM 24136404986 No Longer Active Checo Conklin MD Active PREDNISONE 20 MG TAB 2 tabs daily for 3 days, 1 t ab daily for 3 days, 1/2 tab daily for 2 days PREDNISONE 26320809235 No Longer Active Checo Conklin MD Active TRIAMCINOLONE ACETONIDE 0.1 % OINT Apply to affected a reas TID for up to 2 weeks TRIAMCINOLONE ACETONIDE 58781180452 No Longer A ctive Checo Conklin MD Active CEFDINIR 300 MG CAPS by mouth twice a day CEFDI JAZZY 19796886929 No Longer Active Dangelo Rangel MD Active BUPROPION HCL (SMOKING DETER) 150 MG [id number] 1 a day for 1 week then 1 twice a day BUPROPION HCL (SMOKING DETER) 52890862364 No Lo nger Active Checo Conklin MD Active SIMVASTATIN 20 MG TABS 1 po qd SIMVASTATIN 1583605429 5 Active Checo Conklin MD Active CHANTIX STARTING MONTH KARTHIK 0.5 MG X 11 & 1 MG X 42 TAB S 0.5mg daily for 3 days, then 0.5mg BID for 4 days, then 1mg BID VARENICLINE TARTRATE 55892599379 No Longer Active Checo Conklin MD Activ e XANAX 0.5 MG TABS 1 po BID PRN anxiety ALPRAZOLAM 70418807944 Active Checo Conklin MD Active CONCERTA 18 MG CR-TABS 1 po q a.m. METHYLPHENID ATE HCL 60494629647 No Longer Active Checo Conklin MD Active AMBIEN 5 MG TAB 1 po qHS PRN Insomnia ZOLPIDEM TARTRATE 27124490065 Active Checo Conklin MD Active TRAZODONE HCL 100 MG TAB 0.5 to 1 po qHS PRN Insomnia TRAZODONE HCL 47489181020 No Longer Active Checo Conklin MD Acti ve FIORICET 325-50-40 MG TAB 1 tablet by mouth four times daily as needed [id number] 62025484305 No Longer Active Checo Conklin MD Active PHENERGAN CREAM* 25mg applied to wrist q6hr PRN Nausea PHENERGAN CREAM* No Longer Active Checo Conklin MD A ctive FLONASE 50 MCG/ACT SUSP 1 spray each nostril am and hs FLUTICASONE PROPIONATE 63668084779 No Longer Active Checo Conklin MD Activ e ANTIPYRINE-BENZOCAINE 5.4-1.4 % SOLN 1-2 drops in affected ear BENZOCAINE-ANTIPYRINE 75163430997 No Longer Active Checo Conklin MD Active CEFDINIR 300 MG CAPS 1 po bid CEFDINIR 45160369 120 No Longer Active Checo Conklin MD Active PREDNISONE 20 MG TAB 2 tabs daily for 3 days, 1 t ab daily for 3 days, 1/2 tab daily for 2 days PREDNISONE 76988548605 No Longer Active Aracelis Conklin MD Active AZITHROMYCIN 250 MG TABS 2 po qd x 1 day, then 1 po qd x 4 days AZITHROMYCIN 12635985786 No Longer Active Checo Conklin MD Active PREDNISONE 20 MG TAB 2 tabs daily for 3 days, 1 t ab daily for 3 days, 1/2 tab daily for 2 days PREDNISONE 80972035118 No Longer Active Checo Conklin MD Active ZITHROMAX Z-KARTHIK 250 MG TABS 2 today, then 1 daily for 4 days 201 09/18/28 AZITHROMYCIN 30788403734 No Longer Active Paul Hamlin MD Active FOCALIN XR 10 MG [id number] 1 po q a.m. D EXMETHYLPHENIDATE HCL 88327198452 No Longer Active Paul Hamlin MD Activ e PERCOCET 10-325 MG TABS 1 tablet every 6 hours as needed for pain OXYCODONE-ACETAMINOPHEN 10862080707 No Longer Active Paul Hamlin MD Active LORTAB 5 5-500 MG TABS 1/2 to 1 tablet by mouth flaquito ry 4 hours as needed for pain HYDROCODONE-ACETAMINOPHEN 56195538128 No Longer Active Checo Conklin MD Active FOCALIN XR 15 MG [id number] 1 po q a.m. D EXMETHYLPHENIDATE HCL 02035809601 No Longer Active Checo Conklin MD Activ e ZOFRAN ODT 4 MG TBDP 1 po q6hr PRN Nausea ONDAN SETRON 00197708399 No Longer Active Checo Conklin MD Active PERCOCET 5-325 MG TABS 1 tablet by mouth every 6 hours as needed OXYCODONE-ACETAMINOPHEN 93593576992 No Longer Active Checo Conklin MD Active PYRIDIUM 200 MG TABS take 1 tab po TID prn urinary pain. 0 PHENAZOPYRIDINE HCL 88538178647 No Longer Active Checo Conklin MD Active FLUCONAZOLE 150 MG TABS take 1 tab po qday once 04/06 FLUCONAZOLE 43223716507 No Longer Active Dangelo Rangel MD Acti ve CIPRO 500 MG TAB 1 tablet by mouth twice daily CIPROFLOXACIN HCL 45021495875 No Longer Active Dangelo Rangel MD Active PYRIDIUM 200 MG TABS take 1 tab po TID prn urinary pain. 0 PYRIDIUM 200 MG TABS 9164162 PHENAZOPYRIDINE HCL Inactive PERCOCET 5-325 MG TABS 1 tablet by mouth every 6 hours as needed PERCOCET 5-325 MG TABS 4347350 OXYCODONE-ACETAMINOPHEN I nactive ZOFRAN ODT 4 MG TBDP 1 po q6hr PRN Nausea ZOFRAN ODT 4 MG TBDP 072563 ONDANSETRON Inactive FOCALIN XR 15 MG [id number] 1 po q a.m. F OCALIN XR 15 MG [id number] DEXMETHYLPHENIDATE HCL Inactive LORTAB 5 5-500 MG TABS 1/2 to 1 tablet by mouth flaquito ry 4 hours as needed for pain LORTAB 5 5-500 MG TABS HYDROCODONE-A CETAMINOPHEN Inactive PERCOCET 10-325 MG TABS 1 tablet every 6 hours as needed for pain PERCOCET 10-325 MG TABS 1935083 OXYCODONE-ACETAMINOPHEN Inactive FOCALIN XR 10 MG [id number] 1 po q a.m. F OCALIN XR 10 MG [id number] DEXMETHYLPHENIDATE HCL Inactive CEFDINIR 300 MG CAPS 1 po bid CEFDINIR 300 MG CAPS 20 0346 CEFDINIR Inactive ANTIPYRINE-BENZOCAINE 5.4-1.4 % SOLN 1-2 drops in affected ear ANTIPYRINE-BENZOCAINE 5.4-1.4 % SOLN 789253 BENZOCAINE-ANTIPYRINE I nactive FLONASE 50 MCG/ACT SUSP 1 spray each nostril am and hs FLONASE 50 MCG/ACT SUSP 836783 FLUTICASONE PROPIONATE Inactive PHENERGAN CREAM* 25mg applied to wrist q6hr PRN Nausea PHENERGAN CREAM* Inactive FIORICET 325-50-40 MG TAB 1 tablet by mouth four times daily as needed FIORICET 325-50-40 MG TAB ACETAMINOPHEN-C AFF-BUTALBITAL Inactive TRAZODONE HCL 100 MG TAB 0.5 to 1 po qHS PRN Insomnia TRAZODONE HCL 100 MG TAB 739649 TRAZODONE HCL Inactive CONCERTA 18 MG CR-TABS [...] s prn cough HYDROCODONE-ACETAMINOPHEN 5-325 MG TABS 414953 HYDROCODONE-ACETAMINOPHEN Inactive PHENAZOPYRIDINE HCL 200 MG TABS take 1 tab po TID for bladder pa in PHENAZOPYRIDINE HCL 200 MG TABS 9586583 PHENAZOPYRIDINE HCL Inactive HYDROCODONE-ACETAMINOPHEN 5-325 MG TABS 1 po q 6hr PRN Pain 2013 HYDROCODONE-ACETAMINOPHEN 5-325 MG TABS 582154 HYDROCODONE-ACETAMINOPHEN Inactive CELEXA 20 MG TABS 1 tablet by mouth daily CELEXA 20 MG TABS 856564 CITALOPRAM HYDROBROMIDE Inactive REGLAN 10 MG TAB 1 po TID PRN Nausea REGLAN 10 MG TAB 551104 METOCLOPRAMIDE HCL Inactive LAMISIL 250 MG TAB 1 po qd LAMISIL 250 MG TAB 594130 TERBINAFINE HCL Inactive DICLOFENAC SODIUM 75 MG TBEC 1 tablet by mouth twice daily P RN Knee pain DICLOFENAC SODIUM 75 MG TBEC 160242 DICLOFENAC S ODIUM Inactive METOCLOPRAMIDE HCL 10 MG ORAL TABS take one PO tid PRN nausea 20 29/12/14 METOCLOPRAMIDE HCL 10 MG ORAL TABS 982855 METOCLOPRAMID E HCL Inactive TERBINAFINE HCL 250 MG ORAL TABS take one table PO one time abran y TERBINAFINE HCL 250 MG ORAL TABS 544107 TERBINAFINE HCL Inactive BUPROPION HCL ER (SR) 100 MG ORAL [id number] take one t ablet by mouth one time daily for one week then take 1 two times daily BUPROPION HCL ER (SR) 100 MG ORAL [id number] BUPROPION HCL Inacti ve TRAVEL SICKNESS 25 MG ORAL CHEW chew and swallow one t ablet every 6 hours as needed TRAVEL SICKNESS 25 MG ORAL CHEW 032136 MECLIZINE HCL Inactive SUMATRIPTAN SUCCINATE 100 MG ORAL TABS Take one PRN for migrane SUMATRIPTAN SUCCINATE 100 MG ORAL TABS 957965 SUMATRIPT AN SUCCINATE Inactive COMPRO 25 MG RECTAL SUPP insert or apply one supposit ory rectally as directed every 12 hours as needed for nausea COMP RO 25 MG RECTAL SUPP 334798 PROCHLORPERAZINE Inactive ONDANSETRON [address] one tablet on tongue and allow to dissolve every 6 hours as needed for vomitting ON DANSETRON 8 MG ORAL TBDP 802217 ONDANSETRON Inactive HYDROCODONE-ACETAMINOPHEN 5-325 MG TABS 0.5 to 1 tab b y mouth every 6 hours as needed HYDROCODONE-ACETAMINOPHEN 5-325 MG TABS 8 82177 HYDROCODONE-ACETAMINOPHEN Inactive BACTRIM DS 800-160 MG TAB 1 tab by mouth twice daily 2 BACTRIM DS 800-160 MG TAB 788703 TRIMETHOPRIM-SULFAMETHOXAZOLE Inac tive DIFLUCAN 150 MG TAB 1 tablet by mouth if needed, hold until symptoms start DIFLUCAN 150 MG TAB 733251 FLUCONAZOLE Inactive IBUPROFEN 800 MG TABS 1 tab every 8 hours with food 31/03/21 IBUPROFEN 800 MG TABS 837163 IBUPROFEN Inactive HYDROCODONE-ACETAMINOPHEN 5-325 MG TABS 1 tab by mouth every 6 hours as needed HYDROCODONE-ACETAMINOPHEN 5-325 MG TABS 951089 HYDROCODONE-ACETAMINOPHEN Inactive BACTROBAN 2 % CREAM Apply to affected area BID for up to 10 days BACTROBAN 2 % CREAM 829899 MUPIROCIN CALCIUM Inactive MAGNESIUM CITRATE 1.745 GM/30ML ORAL SOLN 150ml po BID PRN C onstipation MAGNESIUM CITRATE 1.745 GM/30ML ORAL SOLN 772143 0 MAGNESIUM CITRATE Inactive CIPRO 500 MG TAB 1 tablet by mouth twice daily CIPRO 500 MG TAB 850658 CIPROFLOXACIN HCL Inactive FLUCONAZOLE 150 MG TABS take 1 tab po qday once 04/06 FLUCONAZOLE 150 MG TABS 657305 FLUCONAZOLE Inactive ZITHROMAX Z-KARTHIK 250 MG TABS 2 today, then 1 daily for 4 days 201 09/18/28 ZITHROMAX Z-KARTHIK 250 MG TABS 6390723 AZITHROMYCIN Inac tive PREDNISONE 20 MG TAB 2 tabs daily for 3 days, 1 t ab daily for 3 days, 1/2 tab daily for 2 days PREDNISONE 20 MG TAB 486006 PREDNISON E Inactive AZITHROMYCIN 250 MG TABS 2 po qd x 1 day, then 1 po qd x 4 days AZITHROMYCIN 250 MG TABS 2937300 AZITHROMYCIN Inactiv e PREDNISONE 20 MG TAB 2 tabs daily for 3 days, 1 t ab daily for 3 days, 1/2 tab daily for 2 days PREDNISONE 20 MG TAB 106477 PREDNISON E Inactive CEFDINIR 300 MG CAPS by mouth twice a day CEFDINIR 300 MG CAPS 462694 CEFDINIR Inactive TRIAMCINOLONE ACETONIDE 0.1 % OINT Apply to affected a reas TID for up to 2 weeks TRIAMCINOLONE ACETONIDE 0.1 % OINT 126302 6 TRIAMCINOLONE ACETONIDE Inactive PREDNISONE 20 MG TAB 2 tabs daily for 3 days, 1 t ab daily for 3 days, 1/2 tab daily for 2 days PREDNISONE 20 MG TAB 092159 PREDNISON E Inactive BACTRIM DS 800-160 MG TABS 1 po BID x 7 days 0 BACTRIM DS 800-160 MG TABS 920454 SULFAMETHOXAZOLE-TRIMETHOPRIM Inactive CIPRO 500 MG TAB 1 tablet by mouth twice daily CIPRO 500 MG TAB 605079 CIPROFLOXACIN HCL Inactive AZITHROMYCIN 250 MG TABS 2 po qd x 1 day, then 1 po qd x 4 days AZITHROMYCIN 250 MG TABS 8329139 AZITHROMYCIN Inactiv e FLAGYL 500 MG TAB 1 tablet by mouth bid FLAGYL 500 MG TAB 243274 METRONIDAZOLE Inactive AZITHROMYCIN 250 MG TABS 2 po qd x 1 day, then 1 po qd x 4 days AZITHROMYCIN 250 MG TABS 7113271 AZITHROMYCIN Inactiv e Immunizations Vaccine Administration Date [...] ... - Chemistry sodium, serum 141 mmol/L 211-573 3824/01/26 carbon dioxide, venous blood 30.0 mmol/L 21.0-32 .0 potassium, serum 4.0 mmol/L 3.5-5.2 chloride, serum 105 mmol/L 98-107 blood glucose 85 mg/dL 65-110 urea nitrogen, blood 9 mg/dL 7-18 creatinine, serum 0.66 mg/dL 0.55-1.30 alanine aminotransferase (SGPT), serum 31 U/L 12-78 aspartate aminotransferase (SGOT), serum 21 U/L 15-37 calcium, serum 8.2 mg/dL 8.5-10.1 bilirubin, serum, total 1.10 mg/dL 0.00-1.00 cholesterol, serum 178 mg/dL 817-880 6985/01/26 triglyceride, serum, fasting 149 mg/dL 30-200 HDL [...] 5.0-8.5 Encounters Code Encounter Date Provider Facility CPT-80733 Level 3 Est. Patient 11:28:51 TAX STAFF ACCOUNTANT Efren almendarez APRN [facility] CPT-60024 Level 4 Est. Patient 13:55:46 TAX STAFF ACCOUNTANT Checo Cnoklin MD [facility] CPT-33455 Level 4 Est. Patient 17:10:53 CDT Checo Conklin MD [facility] CPT-20122 Level 3 Est. Patient 15:56:22 CDT Checo Conklin MD [facility] CPT-63442 Level 3 Est. Patient 15:29:07 CDT Checo Conklin MD [facility] CPT-60177 Level 3 Est. Patient 14:38:41 CDT Checo Conklin MD [facility] CPT-46844 Level 3 Est. Patient 15:22:03 TAX STAFF ACCOUNTANT Thomas reynolds DO [facility] CPT-69790 Level 3 Est. Patient 13:34:17 TAX STAFF ACCOUNTANT Checo Conklin MD [facility] CPT-24842 Level 3 Est. Patient 12:29:32 CDT Dangelo arroyo MD [facility] CPT-84958 Level 3 Est. Patient 16:53:02 CDT Checo Conklin MD [facility] CPT-55603 Level 3 Est. Patient 16:37:13 CDT Checo Conklin MD [facility] CPT-64893 Level 3 Est. Patient 16:16:59 CDT Paul Hamlin MD [facility] CPT-97711 Level 3 Est. Patient 14:20:13 CDT Dangelo arroyo MD [facility] CPT-10029 Level 4 Est. Patient 11:29:33 CDT Checo Conklin MD [facility] CPT-05912 Level 3 Est. Patient 17:08:31 CDT Checo Conklin MD [facility] CPT-19505 Level 3 Est. Patient 16:50:42 TAX STAFF ACCOUNTANT Checo Conklin MD [facility] CPT-66165 Level 4 Est. Patient 09:26:08 TAX STAFF ACCOUNTANT Checo Conklin MD [facility] CPT-38638 Level 3 Est. Patient 11:37:10 CDT Checo Conklin MD [facility] CPT-20654 Level 4 Est. Patient 14:07:38 CDT Checo Conklin MD [facility] CPT-07903 Level 3 Est. Patient 09:54:41 CDT Checo Conklin MD [facility] CPT-92454 Level 3 Est. Patient 11:10:54 CDT Paul Hamlin MD [facility] CPT-87579 Level 3 Est. Patient 14:16:56 TAX STAFF ACCOUNTANT Checo Conklin MD [facility] CPT-55607 Level 3 Est. Patient 11:04:11 TAX STAFF ACCOUNTANT Checo Conklin MD [facility] CPT-23500 Level 3 Est. Patient 17:09:26 CDT Dangelo arroyo MD [facility] CPT-68122 Level 3 Est. Patient 16:54:37 CDT Checo Conklin MD [facility] Procedures Code Procedure Name Date Entry Date Standard Desc ription CPT-OV Office Visit 11:31:28 CDT CPT-58119 Tubersol 09:39:29 CDT CPT-J2550 Phenergan 25 mg (Promethazine) 13:59:02 TAX STAFF ACCOUNTANT CPT-J1885 Toradol 60 mg (Ketorolac) 13:59:02 TAX STAFF ACCOUNTANT 2012
--- OUTSIDE RECORDS SUMMARY | 2019-09-29 02:21 | XMS REPORT | Clinical Summary ---
Author Author Admin, Bethany Gonzales Organization [employer] Address Unknown Phone Unavailable Allergies, Adverse [...] Inactive Checo Conklin MD Cough ICD-786.2 Inactive Cheoc Conklin MD 2016 Pedal edema ICD-782.3 Inactive [...] po BID x 10 days 09/12 AMOXICILLIN [id number] Active Checo Conklin MD Active PAROXETINE HCL 20 MG ORAL TABS 0.5 po qd 6 days, then 1 po qd 09/02 PAROXETINE HCL 47939516383 Active Checo Conklin MD Active FLUTICASONE PROPIONATE 50 MCG/ACT NASAL SUSP 2 sprays/ nostril qd PRN Congestion/Allergies FLUTICASONE PROPIONATE 42089641192 Ac tive Checo Conklin MD Active MIRALAX ORAL POWD 8.5 to 17g po qd PRN Constipation POLYETHYLENE GLYCOL 3350 61099708112 Active Checo Conklin MD Active CLARITIN 10 MG TAB 1 tablet by mouth daily as needed for allergi es LORATADINE 82561048992 No Longer Active Checo Conklin MD Active BACTRIM DS 800-160 MG TAB 1 tab by mouth twice daily 2 TRIMETHOPRIM-SULFAMETHOXAZOLE 78242757404 No Longer Active Tanner Carrillo MD Active DIFLUCAN 150 MG TAB 1 tablet by mouth qod FLUCO NAZOLE 71249549879 No Longer Active Efren Medel APRN Active AZITHROMYCIN 250 MG TABS 2 po qd x 1 day, then 1 po qd x 4 days AZITHROMYCIN 81688940448 No Longer Active Efren Medel APRN Active FLAGYL 500 MG TAB 1 tablet by mouth bid METRONI DAZOLE 95521651136 No Longer Active Checo Conklin MD Active FOCALIN XR 10 MG ORAL [id number] 1 po q a.m. DEX METHYLPHENIDATE HCL 11033479161 Active Checo Conklin MD Active MAGNESIUM CITRATE 1.745 GM/30ML ORAL SOLN 150ml po BID PRN C onstipation MAGNESIUM CITRATE 68441676932 No Longer Active Checo Conklin MD Active BACTROBAN 2 % CREAM Apply to affected area BID for up to 10 days MUPIROCIN CALCIUM 23280690061 No Longer Active Checo Conklin MD Active HYDROCODONE-ACETAMINOPHEN 5-325 MG TABS 1 tab by mouth every 6 hours as needed HYDROCODONE-ACETAMINOPHEN 60136031132 No Longer Activ e Checo Conklin MD Active IBUPROFEN 800 MG TABS 1 tab every 8 hours with food 31/03/21 IBUPROFEN 08280171791 No Longer Active Checo Conklin MD Activ e DIFLUCAN 150 MG TAB 1 tablet by mouth if needed, hold until symptoms start FLUCONAZOLE 57451969728 No Longer Active Checo Ortiz MD Active BACTRIM DS 800-160 MG TAB 1 tab by mouth twice daily 2 TRIMETHOPRIM-SULFAMETHOXAZOLE 61121313463 No Longer Active Corry leong LPN Active HYDROCODONE-ACETAMINOPHEN 5-325 MG TABS 0.5 to 1 tab b y mouth every 6 hours as needed HYDROCODONE-ACETAMINOPHEN 43689842451 No Longer Active Checo Conklin MD Active ONDANSETRON [address] one tablet on tongue and allow to dissolve every 6 hours as needed for vomitting ONDANSETRO N 72623359187 No Longer Active Checo Conklin MD Active COMPRO 25 MG RECTAL SUPP insert or apply one supposit ory rectally as directed every 12 hours as needed for nausea PROCHLORPERA ZINE 77087254792 No Longer Active Checo Conklin MD Active SUMATRIPTAN SUCCINATE 100 MG ORAL TABS Take one PRN for migrane SUMATRIPTAN SUCCINATE 89965034160 No Longer Active Checo Conklin MD Active TRAVEL SICKNESS 25 MG ORAL CHEW chew and swallow one t ablet every 6 hours as needed MECLIZINE HCL 65459901974 No Longer Active Joe Conklin MD Active BUPROPION HCL ER (SR) 100 MG ORAL [id number] take one t ablet by mouth one time daily for one week then take 1 two times daily BUPROPION HCL 15348340551 No Longer Active Checo Conklin MD Activ e TERBINAFINE HCL 250 MG ORAL TABS take one table PO one time abran y TERBINAFINE HCL 33590279365 No Longer Active Checo Conklin MD Active METOCLOPRAMIDE HCL 10 MG ORAL TABS take one PO tid PRN nausea 20 29/12/14 METOCLOPRAMIDE HCL 80645374067 No Longer Active Checo Conklin MD Active DICLOFENAC SODIUM 75 MG TBEC 1 tablet by mouth twice daily P RN Knee pain DICLOFENAC SODIUM 98685415321 No Longer Active Checo Conklin MD Active LAMISIL 250 MG TAB 1 po qd TERBINAFINE HCL 548 17532375 No Longer Active Checo Conklin MD Active REGLAN 10 MG TAB 1 po TID PRN Nausea METOCLOPRA MIDE HCL 61375794009 No Longer Active Checo Conklin MD Active CELEXA 20 MG TABS 1 tablet by mouth daily CITALOPRAM HYDROBROMIDE 42324843010 No Longer Active Checo Conklin MD Activ e AZITHROMYCIN 250 MG TABS 2 po qd x 1 day, then 1 po qd x 4 days AZITHROMYCIN 98934034704 No Longer Active Checo Conklin MD Active HYDROCODONE-ACETAMINOPHEN 5-325 MG TABS 1 po q 6hr PRN Pain 2013 HYDROCODONE-ACETAMINOPHEN 03972374662 No Longer Active Lenora Conklin MD Active PHENAZOPYRIDINE HCL 200 MG TABS take 1 tab po TID for bladder pa in PHENAZOPYRIDINE HCL 84427483142 No Longer Active Checo Joshua Active CIPRO 500 MG TAB 1 tablet by mouth twice daily CIPROFLOXACIN HCL 99441091014 No Longer Active Dangelo Rangel MD Active HYDROCODONE-ACETAMINOPHEN 5-325 MG TABS 1/2 to 1 po q 4 hour s prn cough HYDROCODONE-ACETAMINOPHEN 24725149307 No Longer Activ e Dangelo Rangel MD Active BACTRIM DS 800-160 MG TABS 1 po BID x 7 days 0 SULFAMETHOXAZOLE-TRIMETHOPRIM 47541815080 No Longer Active Checo Conklin MD Active PREDNISONE 20 MG TAB 2 tabs daily for 3 days, 1 t ab daily for 3 days, 1/2 tab daily for 2 days PREDNISONE 30777175379 No Longer Active Checo Conklin MD Active TRIAMCINOLONE ACETONIDE 0.1 % OINT Apply to affected a reas TID for up to 2 weeks TRIAMCINOLONE ACETONIDE 87478667802 No Longer A ctive Checo Conklin MD Active CEFDINIR 300 MG CAPS by mouth twice a day CEFDI JAZZY 18740677647 No Longer Active Dangelo Rangel MD Active BUPROPION HCL (SMOKING DETER) 150 MG [id number] 1 a day for 1 week then 1 twice a day BUPROPION HCL (SMOKING DETER) 27408140155 No Lo nger Active Checo Conklin MD Active SIMVASTATIN 20 MG TABS 1 po qd SIMVASTATIN 4836597451 5 Active Checo Conklin MD Active CHANTIX STARTING MONTH KARTHIK 0.5 MG X 11 & 1 MG X 42 TAB S 0.5mg daily for 3 days, then 0.5mg BID for 4 days, then 1mg BID VARENICLINE TARTRATE 88678383722 No Longer Active Checo Conlkin MD Activ e XANAX 0.5 MG TABS 1 po BID PRN anxiety ALPRAZOLAM 90466423710 Active Checo Conklin MD Active CONCERTA 18 MG CR-TABS 1 po q a.m. METHYLPHENID ATE HCL 03995988476 No Longer Active Checo Conklin MD Active AMBIEN 5 MG TAB 1 po qHS PRN Insomnia ZOLPIDEM TARTRATE 93242762413 Active Checo Conklin MD Active TRAZODONE HCL 100 MG TAB 0.5 to 1 po qHS PRN Insomnia TRAZODONE HCL 30188075278 No Longer Active Checo Conklin MD Acti ve FIORICET 325-50-40 MG TAB 1 tablet by mouth four times daily as needed [id number] 09260638468 No Longer Active Checo Conklin MD Active PHENERGAN CREAM* 25mg applied to wrist q6hr PRN Nausea PHENERGAN CREAM* No Longer Active Checo Conklin MD A ctive FLONASE 50 MCG/ACT SUSP 1 spray each nostril am and hs FLUTICASONE PROPIONATE 68086584720 No Longer Active Checo Conklin MD Activ e ANTIPYRINE-BENZOCAINE 5.4-1.4 % SOLN 1-2 drops in affected ear BENZOCAINE-ANTIPYRINE 26255313599 No Longer Active Checo Conklin MD Active CEFDINIR 300 MG CAPS 1 po bid CEFDINIR 99004394 120 No Longer Active Checo Conklin MD Active PREDNISONE 20 MG TAB 2 tabs daily for 3 days, 1 t ab daily for 3 days, 1/2 tab daily for 2 days PREDNISONE 04018571894 No Longer Active Aracelis Conklin MD Active AZITHROMYCIN 250 MG TABS 2 po qd x 1 day, then 1 po qd x 4 days AZITHROMYCIN 31531271416 No Longer Active Checo Conklin MD Active PREDNISONE 20 MG TAB 2 tabs daily for 3 days, 1 t ab daily for 3 days, 1/2 tab daily for 2 days PREDNISONE 91314514437 No Longer Active Checo Conklin MD Active ZITHROMAX Z-KARTHIK 250 MG TABS 2 today, then 1 daily for 4 days 201 09/18/28 AZITHROMYCIN 52325385385 No Longer Active Paul Hamlin MD Active FOCALIN XR 10 MG [id number] 1 po q a.m. D EXMETHYLPHENIDATE HCL 86169689047 No Longer Active Paul Hamlin MD Activ e PERCOCET 10-325 MG TABS 1 tablet every 6 hours as needed for pain OXYCODONE-ACETAMINOPHEN 77154700648 No Longer Active Paul Hamlin MD Active LORTAB 5 5-500 MG TABS 1/2 to 1 tablet by mouth flaquito ry 4 hours as needed for pain HYDROCODONE-ACETAMINOPHEN 51872012874 No Longer Active Checo Conklin MD Active FOCALIN XR 15 MG [id number] 1 po q a.m. D EXMETHYLPHENIDATE HCL 42085637794 No Longer Active Checo Conklin MD Activ e ZOFRAN ODT 4 MG TBDP 1 po q6hr PRN Nausea ONDAN SETRON 57517342088 No Longer Active Checo Conklin MD Active PERCOCET 5-325 MG TABS 1 tablet by mouth every 6 hours as needed OXYCODONE-ACETAMINOPHEN 39929143291 No Longer Active Checo Conklin MD Active PYRIDIUM 200 MG TABS take 1 tab po TID prn urinary pain. 0 PHENAZOPYRIDINE HCL 89725084530 No Longer Active Checo Conklin MD Active FLUCONAZOLE 150 MG TABS take 1 tab po qday once 04/06 FLUCONAZOLE 57776108011 No Longer Active Dangelo Rangel MD Acti ve CIPRO 500 MG TAB 1 tablet by mouth twice daily CIPROFLOXACIN HCL 10988116476 No Longer Active Dangelo Rangel MD Active PYRIDIUM 200 MG TABS take 1 tab po TID prn urinary pain. 0 PYRIDIUM 200 MG TABS 9435240 PHENAZOPYRIDINE HCL Inactive PERCOCET 5-325 MG TABS 1 tablet by mouth every 6 hours as needed PERCOCET 5-325 MG TABS 8466091 OXYCODONE-ACETAMINOPHEN I nactive ZOFRAN ODT 4 MG TBDP 1 po q6hr PRN Nausea ZOFRAN ODT 4 MG TBDP 530198 ONDANSETRON Inactive FOCALIN XR 15 MG [id number] 1 po q a.m. F OCALIN XR 15 MG [id number] DEXMETHYLPHENIDATE HCL Inactive LORTAB 5 5-500 MG TABS 1/2 to 1 tablet by mouth flaquito ry 4 hours as needed for pain LORTAB 5 5-500 MG TABS HYDROCODONE-A CETAMINOPHEN Inactive PERCOCET 10-325 MG TABS 1 tablet every 6 hours as needed for pain PERCOCET 10-325 MG TABS 1828927 OXYCODONE-ACETAMINOPHEN Inactive FOCALIN XR 10 MG [id number] 1 po q a.m. F OCALIN XR 10 MG [id number] DEXMETHYLPHENIDATE HCL Inactive CEFDINIR 300 MG CAPS [...] PRN Insomnia TRAZODONE HCL 100 MG TAB 525024 TRAZODONE HCL Inactive CONCERTA 18 MG CR-TABS [...] s prn cough HYDROCODONE-ACETAMINOPHEN 5-325 MG TABS 824972 HYDROCODONE-ACETAMINOPHEN Inactive PHENAZOPYRIDINE HCL 200 MG TABS take 1 tab po TID for bladder pa in PHENAZOPYRIDINE HCL 200 MG TABS 6084614 PHENAZOPYRIDINE HCL Inactive HYDROCODONE-ACETAMINOPHEN 5-325 MG TABS 1 po q 6hr PRN Pain 2013 HYDROCODONE-ACETAMINOPHEN 5-325 MG TABS 782798 HYDROCODONE-ACETAMINOPHEN Inactive CELEXA 20 MG TABS 1 tablet by mouth daily CELEXA 20 MG TABS 445405 CITALOPRAM HYDROBROMIDE Inactive REGLAN 10 MG TAB 1 po TID PRN Nausea REGLAN 10 MG TAB 651684 METOCLOPRAMIDE HCL Inactive LAMISIL 250 MG TAB 1 po qd LAMISIL 250 MG TAB 310817 TERBINAFINE HCL Inactive DICLOFENAC SODIUM 75 MG TBEC 1 tablet by mouth twice daily P RN Knee pain DICLOFENAC SODIUM 75 MG TBEC 848647 DICLOFENAC S ODIUM Inactive METOCLOPRAMIDE HCL 10 MG ORAL TABS take one PO tid PRN nausea 20 29/12/14 METOCLOPRAMIDE HCL 10 MG ORAL TABS 845869 METOCLOPRAMID E HCL Inactive TERBINAFINE HCL 250 MG ORAL TABS take one table PO one time abran y TERBINAFINE HCL 250 MG ORAL TABS 735842 TERBINAFINE HCL Inactive BUPROPION HCL ER (SR) 100 MG ORAL [id number] take one t ablet by mouth one time daily for one week then take 1 two times daily BUPROPION HCL ER (SR) 100 MG ORAL [id number] BUPROPION HCL Inacti ve TRAVEL SICKNESS 25 MG ORAL CHEW chew and swallow one t ablet every 6 hours as needed TRAVEL SICKNESS 25 MG ORAL CHEW 792958 MECLIZINE HCL Inactive SUMATRIPTAN SUCCINATE 100 MG ORAL TABS Take one PRN for migrane SUMATRIPTAN SUCCINATE 100 MG ORAL TABS 154861 SUMATRIPT AN SUCCINATE Inactive COMPRO 25 MG RECTAL SUPP insert or apply one supposit ory rectally as directed every 12 hours as needed for nausea COMP RO 25 MG RECTAL SUPP 737461 PROCHLORPERAZINE Inactive ONDANSETRON [address] one tablet on tongue and allow to dissolve every 6 hours as needed for vomitting ON DANSETRON 8 MG ORAL TBDP 261318 ONDANSETRON Inactive HYDROCODONE-ACETAMINOPHEN 5-325 MG TABS 0.5 to 1 tab b y mouth every 6 hours as needed HYDROCODONE-ACETAMINOPHEN 5-325 MG TABS 8 45538 HYDROCODONE-ACETAMINOPHEN Inactive BACTRIM DS 800-160 MG TAB 1 tab by mouth twice daily 2 BACTRIM DS 800-160 MG TAB 599331 TRIMETHOPRIM-SULFAMETHOXAZOLE Inac tive DIFLUCAN 150 MG TAB 1 tablet by mouth if needed, hold until symptoms start DIFLUCAN 150 MG TAB 192725 FLUCONAZOLE Inactive IBUPROFEN 800 MG TABS 1 tab every 8 hours with food 31/03/21 IBUPROFEN 800 MG TABS 762934 IBUPROFEN Inactive HYDROCODONE-ACETAMINOPHEN 5-325 MG TABS 1 tab by mouth every 6 hours as needed HYDROCODONE-ACETAMINOPHEN 5-325 MG TABS 677928 HYDROCODONE-ACETAMINOPHEN Inactive BACTROBAN 2 % CREAM Apply to affected area BID for up to 10 days BACTROBAN 2 % CREAM 007402 MUPIROCIN CALCIUM Inactive MAGNESIUM CITRATE 1.745 GM/30ML ORAL SOLN 150ml po BID PRN C onstipation MAGNESIUM CITRATE 1.745 GM/30ML ORAL SOLN 814216 0 MAGNESIUM CITRATE Inactive DIFLUCAN 150 MG TAB 1 tablet by mouth qod DIFLUCAN 150 MG TAB 687555 FLUCONAZOLE Inactive BACTRIM DS 800-160 MG TAB 1 tab by mouth twice daily 2 BACTRIM DS 800-160 MG TAB 948732 TRIMETHOPRIM-SULFAMETHOXAZOLE Inac tive CLARITIN 10 MG TAB 1 tablet by mouth daily as needed for allergi es CLARITIN 10 MG TAB 822418 LORATADINE Inactive CIPRO 500 MG TAB 1 tablet by mouth twice daily CIPRO 500 MG TAB 999428 CIPROFLOXACIN HCL Inactive FLUCONAZOLE 150 MG TABS take 1 tab po qday once 04/06 FLUCONAZOLE 150 MG TABS 297153 FLUCONAZOLE Inactive ZITHROMAX Z-KARTHIK 250 MG TABS 2 today, then 1 daily for 4 days 201 09/18/28 ZITHROMAX Z-KARTHIK 250 MG TABS 6484443 AZITHROMYCIN Inac tive PREDNISONE 20 MG TAB 2 tabs daily for 3 days, 1 t ab daily for 3 days, 1/2 tab daily for 2 days PREDNISONE 20 MG TAB 165860 PREDNISON E Inactive AZITHROMYCIN 250 MG TABS 2 po qd x 1 day, then 1 po qd x 4 days AZITHROMYCIN 250 MG TABS 3985553 AZITHROMYCIN Inactiv e PREDNISONE 20 MG TAB 2 tabs daily for 3 days, 1 t ab daily for 3 days, 1/2 tab daily for 2 days PREDNISONE 20 MG TAB 199582 PREDNISON E Inactive CEFDINIR 300 MG CAPS by mouth twice a day CEFDINIR 300 MG CAPS 083777 CEFDINIR Inactive TRIAMCINOLONE ACETONIDE 0.1 % OINT Apply to affected a reas TID for up to 2 weeks TRIAMCINOLONE ACETONIDE 0.1 % OINT 500028 6 TRIAMCINOLONE ACETONIDE Inactive PREDNISONE 20 MG TAB 2 tabs daily for 3 days, 1 t ab daily for 3 days, 1/2 tab daily for 2 days PREDNISONE 20 MG TAB 631988 PREDNISON E Inactive BACTRIM DS 800-160 MG TABS 1 po BID x 7 days 0 BACTRIM DS 800-160 MG TABS 612046 SULFAMETHOXAZOLE-TRIMETHOPRIM Inactive CIPRO 500 MG TAB 1 tablet by mouth twice daily CIPRO 500 MG TAB 260005 CIPROFLOXACIN HCL Inactive AZITHROMYCIN 250 MG TABS 2 po qd x 1 day, then 1 po qd x 4 days AZITHROMYCIN 250 MG TABS 8719828 AZITHROMYCIN Inactiv e FLAGYL 500 MG TAB 1 tablet by mouth bid FLAGYL 500 MG TAB 979513 METRONIDAZOLE Inactive AZITHROMYCIN 250 MG TABS 2 po qd x 1 day, then 1 po qd x 4 days AZITHROMYCIN 250 MG TABS 4283897 AZITHROMYCIN Inactiv e Immunizations Vaccine Administration Date [...] Description Lab Report: CBC W/DIFF - Hematology red blood cell distribution width 13.0 % 11 .6-14.8 platelet count 248 10^3/MM^3 10*3/mm3 007-768 9597/05/27 mean corpuscular hemoglobin concentration, RBC 33.8 G/DL % 31.8-35.4 mean corpuscular hemoglobin, RBC 32.9 pg 27. 0-31.2 mean corpuscular volume, RBC 97 fL 80-97 hematocrit, blood 42.8 % 36.0-46.0 hemoglobin, blood 14.5 g/dL 12.0-16.0 erythrocyte (RBC) count 4.40 10^6/MM^3 10*6/mm3 4.04-5.4 8 lymphocytes as percent of blood leukocytes 25.1 % 20.5-51.1 monocytes as percent of blood leukocytes 7.6 % 1.7-9.3 neutrophils as percent of blood leukocytes 64.6 % 42.2-75.2 leukocyte count, blood 8.0 10^3/MM^3 10*3/mm3 4.6-10.2 Lab Report: CBC W/DIFF, Comp. Metabolic Panel, [facility] - Chemistry sodium, serum 139 mmol/L 898-060 2996/10/21 carbon dioxide, venous blood 33.5 mmol/L 21.0-32 [...] W/DIFF, Comp. Metabolic Panel, [place] [facility] [place] neutrophils as percent of blood [...] 248 10^3/MM^3 10*3/mm3 142-424 Lab Report: Chlamydia/GC APTIMA/11862 - Lab chlamydia DNA probe NOT DETECTED NOT DETECTED Lab Report: Chlamydia/GC [facility]TIMA/52407 - Microbiology Neisseria gonorrhoeae DNA probe NOT DETECTED NO T DETECTED Lab Report: Comp. Metabolic Panel, Thyro id Stimulating Hormone (L), Eryt ... - Chemistry potassium, serum 4.1 mmol/L 3.5-5.2 chloride, serum 103 mmol/L 98-107 blood glucose 96 mg/dL 65-110 urea nitrogen, blood 11 mg/dL 7-18 sodium, serum 137 mmol/L 067-432 8939/05/27 creatinine, serum 0.70 mg/dL 0.55-1.30 alanine aminotransferase (SGPT), serum 37 U/L 12-78 aspartate aminotransferase (SGOT), serum 31 U/L 15-37 calcium, serum 8.9 mg/dL 8.5-10.1 bilirubin, serum, total 1.10 mg/dL 0.00-1.00 TSH 2.59 m[iU]/mL 0.36-3.74 thyroxine, serum, free 0.97 ng/dL 0.76-1.46 carbon dioxide, venous blood 29.1 mmol/L 21.0-32 .0 Lab Report: UADIP (AUTO) - Chemistry protein, [...] Negative Encounters Code Encounter Date Provider Facility CPT-66478 Level 4 Est. 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 Patient 16:06:48 FILLING MACHINE TENDER Checo Conklin MD [facility] CPT-20467 Level 3 Est. Patient 09:11:49 CDT Efren almendarez [facility]-45297 Level 2 Est. Patient 19:53:27 CDT Tanner hill MD [facility]-38261 Level 3 Est. Patient 09:15:34 CDT Efren almendarez [facility] [place] CPT-22428 Level 3 Est. Patient 11:28:51 FILLING MACHINE TENDER Efren almendarez [facility]-63876 Level 4 Est. Patient 13:55:46 FILLING MACHINE TENDER Checo Conklin MD [facility] CPT-85631 Level 4 Est. Patient 17:10:53 CDT Checo Conklin MD [facility] CPT-69862 Level 3 Est. Patient 15:56:22 CDT Checo Conklin MD [facility] CPT-81125 Level 3 Est. Patient 15:29:07 CDT Checo Conklin MD [facility] CPT-93312 Level 3 Est. Patient 14:38:41 CDT Checo Conklin MD [facility] CPT-87166 Level 3 Est. Patient 15:22:03 FILLING MACHINE TENDER Thomas reynolds DO [facility] CPT-81448 Level 3 Est. Patient 13:34:17 FILLING MACHINE TENDER Checo Conklin MD [facility] CPT-70375 Level 3 Est. Patient 12:29:32 CDT Dangelo arroyo MD [facility] CPT-04233 Level 3 Est. Patient 16:53:02 CDT Checo Conklin MD [facility] CPT-86287 Level 3 Est. Patient 16:37:13 CDT Checo Conklin MD [facility] CPT-61664 Level 3 Est. Patient 16:16:59 CDT Paul Hamlin MD [facility] CPT-38141 Level 3 Est. Patient 14:20:13 CDT Dangelo arroyo MD [facility] CPT-54700 Level 4 Est. Patient 11:29:33 CDT Checo Conklin MD [facility] CPT-84135 Level 3 Est. Patient 17:08:31 CDT Checo Conklin MD [facility] CPT-07561 Level 3 Est. Patient 16:50:42 FILLING MACHINE TENDER Checo Conklin MD [facility] CPT-94474 Level 4 Est. Patient 09:26:08 FILLING MACHINE TENDER Checo Conklin MD [facility] CPT-37347 Level 3 Est. Patient 11:37:10 CDT Checo Conklin MD [facility] CPT-47485 Level 4 Est. Patient 14:07:38 CDT Checo Conklin MD [facility] CPT-20435 Level 3 Est. Patient 09:54:41 CDT Checo Conklin MD [facility] CPT-85311 Level 3 Est. Patient 11:10:54 CDT Paul Hamlin MD [facility] CPT-42271 Level 3 Est. Patient 14:16:56 FILLING MACHINE TENDER Checo Conklin MD [facility] CPT-42041 Level 3 Est. Patient 11:04:11 FILLING MACHINE TENDER Checo Conklin MD [facility] CPT-30447 Level 3 Est. Patient 17:09:26 CDT Dangelo arroyo MD [facility] CPT-33167 Level 3 Est. Patient 16:54:37 CDT Checo Conklin MD [facility] Procedures Code Procedure Name Date Entry Date Standard Desc ription CPT-31381 UA w micro - LAB USE ONLY 17:06:46 CDT 2015 CPT-74545 [facility] Qual - LAB USE ONLY 17:06:46 CDT 05/06 CPT-01538 CMP - LAB USE ONLY 17:06:46 CDT CPT-53514 CBC with Diff - LAB USE ONLY 17:06:45 CDT 2 CPT-92619 Venipuncture Draw Fee 17:06:45 CDT CPT-LR Lesion Removal 19:53:27 CDT CPT-OV Office Visit 11:31:28 CDT CPT-61206 Tubersol 09:39:29 CDT CPT-J2550 Phenergan 25 mg (Promethazine) 13:59:02 FILLING MACHINE TENDER CPT-J1885 Toradol 60 mg (Ketorolac) 13:59:02 FILLING MACHINE TENDER 2012
--- OUTSIDE RECORDS SUMMARY | 2019-09-29 02:22 | XMS REPORT | Clinical Summary ---
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 [...] Checo gallagher MD Abdominal pain ICD-789.00 Inactive hCeco ngo MD Knee pain, right ICD-719.46 Inactive Checo gallagher MD Vertigo ICD-780.4 Inactive Checo Conklin MD 2014 Abscess, skin ICD-682.9 Inactive Checo richey MD Bacterial vaginosis ICD-616.10 Inactive Lenora Conklin MD Medication List Medication Instructions Start Date Stop Date Generic Name NDC Status Provider Patient Instruction BACTRIM DS 800-160 MG TAB 1 tab by mouth twice daily 2 TRIMETHOPRIM-SULFAMETHOXAZOLE 90157987857 No Longer Active Tanner Carrillo MD Active DIFLUCAN 150 MG TAB 1 tablet by mouth qod FLUCO NAZOLE 39864582408 No Longer Active Efren Medel APRN Active CLARITIN 10 MG TAB 1 tablet by mouth daily as needed for allergies LORATADINE 53435215006 Active Jillina Frajoel ROD HANGER Active AZITHROMYCIN 250 MG TABS 2 po qd x 1 day, then 1 po qd x 4 days AZITHROMYCIN 12853035436 No Longer Active Jillina Lizy RIDDLEN Active FLAGYL 500 MG TAB 1 tablet by mouth bid METRONI DAZOLE 25842072914 No Longer Active Checo Conklin MD Active FOCALIN XR 10 MG ORAL [id number] 1 po q a.m. DEX METHYLPHENIDATE HCL 07517999271 Active Checo Conklin MD Active MAGNESIUM CITRATE 1.745 GM/30ML ORAL SOLN 150ml po BID PRN C onstipation MAGNESIUM CITRATE 78537472188 No Longer Active Checo Conklin MD Active BACTROBAN 2 % CREAM Apply to affected area BID for up to 10 days MUPIROCIN CALCIUM 54940796716 No Longer Active Checo Conklin MD Active HYDROCODONE-ACETAMINOPHEN 5-325 MG TABS 1 tab by mouth every 6 hours as needed HYDROCODONE-ACETAMINOPHEN 35850448778 No Longer Activ e Checo Conklin MD Active IBUPROFEN 800 MG TABS 1 tab every 8 hours with food 20 31/03/21 IBUPROFEN 75277324962 No Longer Active Checo Conklin MD Activ e DIFLUCAN 150 MG TAB 1 tablet by mouth if needed, hold until symptoms start FLUCONAZOLE 05967564704 No Longer Active Checo Ortiz MD Active BACTRIM DS 800-160 MG TAB 1 tab by mouth twice daily 2 TRIMETHOPRIM-SULFAMETHOXAZOLE 09782406752 No Longer Active Corry leong LPN Active MIRALAX PACK 1 po qd PRN Constipation POLYETHYL JOEL GLYCOL 3350 88030075351 Active Checo Conklin MD Active HYDROCODONE-ACETAMINOPHEN 5-325 MG TABS 0.5 to 1 tab b y mouth every 6 hours as needed HYDROCODONE-ACETAMINOPHEN 03602432549 No Longer Active Checo Conklin MD Active ONDANSETRON [address] one tablet on tongue and allow to dissolve every 6 hours as needed for vomitting ONDANSETRO N 44203005023 No Longer Active Checo Conklin MD Active COMPRO 25 MG RECTAL SUPP insert or apply one supposit ory rectally as directed every 12 hours as needed for nausea PROCHLORPERA ZINE 16988753842 No Longer Active Checo Conklin MD Active SUMATRIPTAN SUCCINATE 100 MG ORAL TABS Take one PRN for migrane SUMATRIPTAN SUCCINATE 36075017187 No Longer Active Checo Conklin MD Active TRAVEL SICKNESS 25 MG ORAL CHEW chew and swallow one t ablet every 6 hours as needed MECLIZINE HCL 85865196150 No Longer Active Joe Conklin MD Active BUPROPION HCL ER (SR) 100 MG ORAL [id number] take one t ablet by mouth one time daily for one week then take 1 two times daily BUPROPION HCL 34052536299 No Longer Active Checo Conklin MD Activ e TERBINAFINE HCL 250 MG ORAL TABS take one table PO one time abran y TERBINAFINE HCL 84814506885 No Longer Active Checo Conklin MD Active METOCLOPRAMIDE HCL 10 MG ORAL TABS take one PO tid PRN nausea 20 29/12/14 METOCLOPRAMIDE HCL 57519202075 No Longer Active Checo Conklin MD Active DICLOFENAC SODIUM 75 MG TBEC 1 tablet by mouth twice daily P RN Knee pain DICLOFENAC SODIUM 81862500166 No Longer Active Checo Conklin MD Active LAMISIL 250 MG TAB 1 po qd TERBINAFINE HCL 548 62601553 No Longer Active Checo Conklin MD Active REGLAN 10 MG TAB 1 po TID PRN Nausea METOCLOPRA MIDE HCL 53385337291 No Longer Active Checo Conklin MD Active CELEXA 20 MG TABS 1 tablet by mouth daily CITALOPRAM HYDROBROMIDE 75945188107 No Longer Active Checo Conklin MD Activ e AZITHROMYCIN 250 MG TABS 2 po qd x 1 day, then 1 po qd x 4 days AZITHROMYCIN 10608772593 No Longer Active Checo Conklin MD Active HYDROCODONE-ACETAMINOPHEN 5-325 MG TABS 1 po q 6hr PRN Pain 2013 HYDROCODONE-ACETAMINOPHEN 53716907269 No Longer Active Lenora Conklin MD Active PHENAZOPYRIDINE HCL 200 MG TABS take 1 tab po TID for bladder pa in PHENAZOPYRIDINE HCL 99423548604 No Longer Active Checo Joshua Active CIPRO 500 MG TAB 1 tablet by mouth twice daily CIPROFLOXACIN HCL 76414663872 No Longer Active Dangelo Rangel MD Active HYDROCODONE-ACETAMINOPHEN 5-325 MG TABS 1/2 to 1 po q 4 hour s prn cough HYDROCODONE-ACETAMINOPHEN 64287421809 No Longer Activ e Dangelo Rangel MD Active BACTRIM DS 800-160 MG TABS 1 po BID x 7 days 0 SULFAMETHOXAZOLE-TRIMETHOPRIM 47994881395 No Longer Active Checo Conklin MD Active PREDNISONE 20 MG TAB 2 tabs daily for 3 days, 1 t ab daily for 3 days, 1/2 tab daily for 2 days PREDNISONE 83039440625 No Longer Active Checo Conklin MD Active TRIAMCINOLONE ACETONIDE 0.1 % OINT Apply to affected a reas TID for up to 2 weeks TRIAMCINOLONE ACETONIDE 38734308271 No Longer A ctive Checo Conklin MD Active CEFDINIR 300 MG CAPS by mouth twice a day CEFDI JAZZY 07692285776 No Longer Active Dangelo Rangel MD Active BUPROPION HCL (SMOKING DETER) 150 MG [id number] 1 a day for 1 week then 1 twice a day BUPROPION HCL (SMOKING DETER) 87343114617 No Lo nger Active Checo Conklin MD Active SIMVASTATIN 20 MG TABS 1 po qd SIMVASTATIN 7459496532 5 Active Checo Conklin MD Active CHANTIX STARTING MONTH KARTHIK 0.5 MG X 11 & 1 MG X 42 TAB S 0.5mg daily for 3 days, then 0.5mg BID for 4 days, then 1mg BID VARENICLINE TARTRATE 58637682860 No Longer Active Checo Conklin MD Activ e XANAX 0.5 MG TABS 1 po BID PRN anxiety ALPRAZOLAM 14913035061 Active Checo Conklin MD Active CONCERTA 18 MG CR-TABS 1 po q a.m. METHYLPHENID ATE HCL 37671265232 No Longer Active Checo Conklin MD Active AMBIEN 5 MG TAB 1 po qHS PRN Insomnia ZOLPIDEM TARTRATE 04526391752 Active Checo Conklin MD Active TRAZODONE HCL 100 MG TAB 0.5 to 1 po qHS PRN Insomnia TRAZODONE HCL 44528845717 No Longer Active Checo Conklin MD Acti ve FIORICET 325-50-40 MG TAB 1 tablet by mouth four times daily as needed [id number] 81553901963 No Longer Active Checo Conklin MD Active PHENERGAN CREAM* 25mg applied to wrist q6hr PRN Nausea PHENERGAN CREAM* No Longer Active Checo Conklin MD A ctive FLONASE 50 MCG/ACT SUSP 1 spray each nostril am and hs FLUTICASONE PROPIONATE 85924751802 No Longer Active Checo Conklin MD Activ e ANTIPYRINE-BENZOCAINE 5.4-1.4 % SOLN 1-2 drops in affected ear BENZOCAINE-ANTIPYRINE 60994576385 No Longer Active Checo Conklin MD Active CEFDINIR 300 MG CAPS 1 po bid CEFDINIR 43527183 120 No Longer Active Checo Conklin MD Active PREDNISONE 20 MG TAB 2 tabs daily for 3 days, 1 t ab daily for 3 days, 1/2 tab daily for 2 days PREDNISONE 47608530720 No Longer Active Aracelis Conklin MD Active AZITHROMYCIN 250 MG TABS 2 po qd x 1 day, then 1 po qd x 4 days AZITHROMYCIN 84792335071 No Longer Active Checo Conklin MD Active PREDNISONE 20 MG TAB 2 tabs daily for 3 days, 1 t ab daily for 3 days, 1/2 tab daily for 2 days PREDNISONE 70116238451 No Longer Active Checo Conklin MD Active ZITHROMAX Z-KARTHIK 250 MG TABS 2 today, then 1 daily for 4 days 201 09/18/28 AZITHROMYCIN 34483263952 No Longer Active Paul Hamlin MD Active FOCALIN XR 10 MG [id number] 1 po q a.m. D EXMETHYLPHENIDATE HCL 52061931082 No Longer Active Paul Hamlin MD Activ e PERCOCET 10-325 MG TABS 1 tablet every 6 hours as needed for pain OXYCODONE-ACETAMINOPHEN 58761316486 No Longer Active Paul Hamlin MD Active LORTAB 5 5-500 MG TABS 1/2 to 1 tablet by mouth flaquito ry 4 hours as needed for pain HYDROCODONE-ACETAMINOPHEN 37436581163 No Longer Active Checo Conklin MD Active FOCALIN XR 15 MG [id number] 1 po q a.m. D EXMETHYLPHENIDATE HCL 90713623038 No Longer Active Checo Conklin MD Activ e ZOFRAN ODT 4 MG TBDP 1 po q6hr PRN Nausea ONDAN SETRON 95551740010 No Longer Active Checo Conklin MD Active PERCOCET 5-325 MG TABS 1 tablet by mouth every 6 hours as needed OXYCODONE-ACETAMINOPHEN 83872889378 No Longer Active Checo Conklin MD Active PYRIDIUM 200 MG TABS take 1 tab po TID prn urinary pain. 0 PHENAZOPYRIDINE HCL 64504078138 No Longer Active Checo Conklin MD Active FLUCONAZOLE 150 MG TABS take 1 tab po qday once 0 04/06 FLUCONAZOLE 50441077450 No Longer Active Dangelo Rangel MD Acti ve CIPRO 500 MG TAB 1 tablet by mouth twice daily CIPROFLOXACIN HCL 38997783672 No Longer Active Dangelo Rangel MD Active PYRIDIUM 200 MG TABS take 1 tab po TID prn urinary pain. 0 PYRIDIUM 200 MG TABS 7338035 PHENAZOPYRIDINE HCL Inactive PERCOCET 5-325 MG TABS 1 tablet by mouth every 6 hours as needed PERCOCET 5-325 MG TABS 4882579 OXYCODONE-ACETAMINOPHEN I nactive ZOFRAN ODT 4 MG TBDP 1 po q6hr PRN Nausea ZOFRAN ODT 4 MG TBDP 459015 ONDANSETRON Inactive FOCALIN XR 15 MG [id number] 1 po q a.m. F OCALIN XR 15 MG [id number] DEXMETHYLPHENIDATE HCL Inactive LORTAB 5 5-500 MG TABS 1/2 to 1 tablet by mouth flaquito ry 4 hours as needed for pain LORTAB 5 5-500 MG TABS HYDROCODONE-A CETAMINOPHEN Inactive PERCOCET 10-325 MG TABS 1 tablet every 6 hours as needed for pain PERCOCET 10-325 MG TABS 9755905 OXYCODONE-ACETAMINOPHEN Inactive FOCALIN XR 10 MG [id number] 1 po q a.m. F OCALIN XR 10 MG [id number] DEXMETHYLPHENIDATE HCL Inactive CEFDINIR 300 MG CAPS 1 po bid CEFDINIR 300 MG CAPS 20 0346 CEFDINIR Inactive ANTIPYRINE-BENZOCAINE 5.4-1.4 % SOLN 1-2 drops in affected ear ANTIPYRINE-BENZOCAINE 5.4-1.4 % SOLN 872294 BENZOCAINE-ANTIPYRINE I nactive FLONASE 50 MCG/ACT SUSP [...] PRN Insomnia TRAZODONE HCL 100 MG TAB 057160 TRAZODONE HCL Inactive CONCERTA 18 MG CR-TABS [...] s prn cough HYDROCODONE-ACETAMINOPHEN 5-325 MG TABS 719887 HYDROCODONE-ACETAMINOPHEN Inactive PHENAZOPYRIDINE HCL 200 MG TABS take 1 tab po TID for bladder pa in PHENAZOPYRIDINE HCL 200 MG TABS 5233819 PHENAZOPYRIDINE HCL Inactive HYDROCODONE-ACETAMINOPHEN 5-325 MG TABS 1 po q 6hr PRN Pain 2013 HYDROCODONE-ACETAMINOPHEN 5-325 MG TABS 176821 HYDROCODONE-ACETAMINOPHEN Inactive CELEXA 20 MG TABS 1 tablet by mouth daily CELEXA 20 MG TABS 083654 CITALOPRAM HYDROBROMIDE Inactive REGLAN 10 MG TAB 1 po TID PRN Nausea REGLAN 10 MG TAB 963409 METOCLOPRAMIDE HCL Inactive LAMISIL 250 MG TAB 1 po qd LAMISIL 250 MG TAB 955188 TERBINAFINE HCL Inactive DICLOFENAC SODIUM 75 MG TBEC 1 tablet by mouth twice daily P RN Knee pain DICLOFENAC SODIUM 75 MG TBEC 446573 DICLOFENAC S ODIUM Inactive METOCLOPRAMIDE HCL 10 MG ORAL TABS take one PO tid PRN nausea 20 29/12/14 METOCLOPRAMIDE HCL 10 MG ORAL TABS 083558 METOCLOPRAMID E HCL Inactive TERBINAFINE HCL 250 MG ORAL TABS take one table PO one time abran y TERBINAFINE HCL 250 MG ORAL TABS 837854 TERBINAFINE HCL Inactive BUPROPION HCL ER (SR) 100 MG ORAL [id number] take one t ablet by mouth one time daily for one week then take 1 two times daily BUPROPION HCL ER (SR) 100 MG ORAL [id number] BUPROPION HCL Inacti ve TRAVEL SICKNESS 25 MG ORAL CHEW chew and swallow one t ablet every 6 hours as needed TRAVEL SICKNESS 25 MG ORAL CHEW 630544 MECLIZINE HCL Inactive SUMATRIPTAN SUCCINATE 100 MG ORAL TABS Take one PRN for migrane SUMATRIPTAN SUCCINATE 100 MG ORAL TABS 461710 SUMATRIPT AN SUCCINATE Inactive COMPRO 25 MG RECTAL SUPP insert or apply one supposit ory rectally as directed every 12 hours as needed for nausea COMP RO 25 MG RECTAL SUPP 191463 PROCHLORPERAZINE Inactive ONDANSETRON [address] one tablet on tongue and allow to dissolve every 6 hours as needed for vomitting ON DANSETRON 8 MG ORAL TBDP 533907 ONDANSETRON Inactive HYDROCODONE-ACETAMINOPHEN 5-325 MG TABS 0.5 to 1 tab b y mouth every 6 hours as needed HYDROCODONE-ACETAMINOPHEN 5-325 MG TABS 8 04719 HYDROCODONE-ACETAMINOPHEN Inactive BACTRIM DS 800-160 MG TAB 1 tab by mouth twice daily 2 BACTRIM DS 800-160 MG TAB 155048 TRIMETHOPRIM-SULFAMETHOXAZOLE Inac tive DIFLUCAN 150 MG TAB 1 tablet by mouth if needed, hold until symptoms start DIFLUCAN 150 MG TAB 178183 FLUCONAZOLE Inactive IBUPROFEN 800 MG TABS 1 tab every 8 hours with food 31/03/21 IBUPROFEN 800 MG TABS 759660 IBUPROFEN Inactive HYDROCODONE-ACETAMINOPHEN 5-325 MG TABS 1 tab by mouth every 6 hours as needed HYDROCODONE-ACETAMINOPHEN 5-325 MG TABS 304058 HYDROCODONE-ACETAMINOPHEN Inactive BACTROBAN 2 % CREAM Apply to affected area BID for up to 10 days BACTROBAN 2 % CREAM 437601 MUPIROCIN CALCIUM Inactive MAGNESIUM CITRATE 1.745 GM/30ML ORAL SOLN 150ml po BID PRN C onstipation MAGNESIUM CITRATE 1.745 GM/30ML ORAL SOLN 565884 0 MAGNESIUM CITRATE Inactive DIFLUCAN 150 MG TAB 1 tablet by mouth qod DIFLUCAN 150 MG TAB 309349 FLUCONAZOLE Inactive BACTRIM DS 800-160 MG TAB 1 tab by mouth twice daily 2 BACTRIM DS 800-160 MG TAB 617416 TRIMETHOPRIM-SULFAMETHOXAZOLE Inac tive CIPRO 500 MG TAB 1 tablet by mouth twice daily CIPRO 500 MG TAB 435179 CIPROFLOXACIN HCL Inactive FLUCONAZOLE 150 MG TABS take 1 tab po qday once 04/06 FLUCONAZOLE 150 MG TABS 195405 FLUCONAZOLE Inactive ZITHROMAX Z-KARTHIK 250 MG TABS 2 today, then 1 daily for 4 days 201 09/18/28 ZITHROMAX Z-KARTHIK 250 MG TABS 0717383 AZITHROMYCIN Inac tive PREDNISONE 20 MG TAB 2 tabs daily for 3 days, 1 t ab daily for 3 days, 1/2 tab daily for 2 days PREDNISONE 20 MG TAB 662365 PREDNISON E Inactive AZITHROMYCIN 250 MG TABS 2 po qd x 1 day, then 1 po qd x 4 days AZITHROMYCIN 250 MG TABS 2959454 AZITHROMYCIN Inactiv e PREDNISONE 20 MG TAB 2 tabs daily for 3 days, 1 t ab daily for 3 days, 1/2 tab daily for 2 days PREDNISONE 20 MG TAB 724530 PREDNISON E Inactive CEFDINIR 300 MG CAPS by mouth twice a day CEFDINIR 300 MG CAPS 998161 CEFDINIR Inactive TRIAMCINOLONE ACETONIDE 0.1 % OINT Apply to affected a reas TID for up to 2 weeks TRIAMCINOLONE ACETONIDE 0.1 % OINT 833393 6 TRIAMCINOLONE ACETONIDE Inactive PREDNISONE 20 MG TAB 2 tabs daily for 3 days, 1 t ab daily for 3 days, 1/2 tab daily for 2 days PREDNISONE 20 MG TAB 302383 PREDNISON E Inactive BACTRIM DS 800-160 MG TABS 1 po BID x 7 days 0 BACTRIM DS 800-160 MG TABS 688043 SULFAMETHOXAZOLE-TRIMETHOPRIM Inactive CIPRO 500 MG TAB 1 tablet by mouth twice daily CIPRO 500 MG TAB 487811 CIPROFLOXACIN HCL Inactive AZITHROMYCIN 250 MG TABS 2 po qd x 1 day, then 1 po qd x 4 days AZITHROMYCIN 250 MG TABS 9629825 AZITHROMYCIN Inactiv e FLAGYL 500 MG TAB 1 tablet by mouth bid FLAGYL 500 MG TAB 880564 METRONIDAZOLE Inactive AZITHROMYCIN 250 MG TABS 2 po qd x 1 day, then 1 po qd x 4 days AZITHROMYCIN 250 MG TABS 7308586 AZITHROMYCIN Inactiv e Immunizations Vaccine Administration Date [...] ... - Chemistry sodium, serum 141 mmol/L 289-314 8418/01/26 carbon dioxide, venous blood 30.0 mmol/L 21.0-32 .0 potassium, serum 4.0 mmol/L 3.5-5.2 chloride, serum 105 mmol/L 98-107 blood glucose 85 mg/dL 65-110 urea nitrogen, blood 9 mg/dL 7-18 creatinine, serum 0.66 mg/dL 0.55-1.30 alanine aminotransferase (SGPT), serum 31 U/L 12-78 aspartate aminotransferase (SGOT), serum 21 U/L 15-37 calcium, serum 8.2 mg/dL 8.5-10.1 bilirubin, serum, total 1.10 mg/dL 0.00-1.00 cholesterol, serum 178 mg/dL 363-414 5106/01/26 triglyceride, serum, fasting 149 mg/dL 30-200 HDL [...] ... - Chemistry sodium, serum 137 mmol/L 392-399 4712/05/27 carbon dioxide, venous blood 29.1 mmol/L 21.0-32 [...] 5.0-8.5 Encounters Code Encounter Date Provider Facility CPT-50527 Level 2 Est. Patient 19:53:27 CDT Tanner hill MD [facility] CPT-06601 Level 3 Est. Patient 09:15:34 CDT Efren almendarez [facility] [place] CPT-11121 Level 3 Est. Patient 11:28:51 NURSERY SUPERVISOR Efren almendarez [facility] [place] CPT-38755 Level 4 Est. Patient 13:55:46 NURSERY SUPERVISOR Checo Conklin MD [facility] CPT-83731 Level 4 Est. Patient 17:10:53 CDT Checo Conklin MD [facility] CPT-57456 Level 3 Est. Patient 15:56:22 CDT Checo Conklin MD [facility] CPT-76285 Level 3 Est. Patient 15:29:07 CDT Checo Conklin MD [facility] CPT-20153 Level 3 Est. Patient 14:38:41 CDT Checo Conklin MD [facility] CPT-50512 Level 3 Est. Patient 15:22:03 NURSERY SUPERVISOR Thomas reynolds DO [facility] CPT-38982 Level 3 Est. Patient 13:34:17 NURSERY SUPERVISOR Checo Conklin MD [facility] CPT-95920 Level 3 Est. Patient 12:29:32 CDT Dangelo arroyo MD [facility] CPT-55042 Level 3 Est. Patient 16:53:02 CDT Checo Conklin MD [facility] CPT-64473 Level 3 Est. Patient 16:37:13 CDT Checo Conklin MD [facility] CPT-87976 Level 3 Est. Patient 16:16:59 CDT Paul Hamlin MD [facility] CPT-10358 Level 3 Est. Patient 14:20:13 CDT Dangelo arroyo MD [facility] CPT-70534 Level 4 Est. Patient 11:29:33 CDT Checo Conklin MD [facility] CPT-20865 Level 3 Est. Patient 17:08:31 CDT Checo Conklin MD [facility] CPT-69989 Level 3 Est. Patient 16:50:42 NURSERY SUPERVISOR Checo Conklin MD [facility] CPT-48531 Level 4 Est. Patient 09:26:08 NURSERY SUPERVISOR Checo Conklin MD [facility] CPT-61489 Level 3 Est. Patient 11:37:10 CDT Checo Conklin MD [facility] CPT-54402 Level 4 Est. Patient 14:07:38 CDT Checo Conklin MD [facility] CPT-37065 Level 3 Est. Patient 09:54:41 CDT Checo Conklin MD [facility] CPT-22607 Level 3 Est. Patient 11:10:54 CDT Paul Hamlin MD [facility] CPT-66370 Level 3 Est. Patient 14:16:56 NURSERY SUPERVISOR Checo Cnoklin MD [facility] CPT-84659 Level 3 Est. Patient 11:04:11 NURSERY SUPERVISOR Checo Conklin MD [facility] CPT-67944 Level 3 Est. Patient 17:09:26 CDT Dangelo arroyo MD [facility] CPT-43550 Level 3 Est. Patient 16:54:37 CDT Checo Conklin MD [facility] Procedures Code Procedure Name Date Entry Date Standard Desc ription CPT-LR Lesion Removal 19:53:27 CDT CPT-OV Office Visit 11:31:28 CDT CPT-74927 Tubersol 09:39:29 CDT CPT-J2550 Phenergan 25 mg (Promethazine) 13:59:02 NURSERY SUPERVISOR CPT-J1885 Toradol 60 mg (Ketorolac) 13:59:02 NURSERY SUPERVISOR 2012
--- OUTSIDE RECORDS SUMMARY | 2019-09-29 02:22 | XMS REPORT | Clinical Summary ---
Author Author Admin, Bethany Ayala [facility] Address Unknown Phone Unavailable Allergies, Adverse [...] unspecified hyperlipidemia Migraine with aura 346.00 Active Cehco Conklin MD Migraine with aura, without mention [...] Conklin MD 201 08/27/26 CONCUSSION ICD-850.9 Inactive [facility] Joshua UTI ICD-599.0 Inactive Checo Conklin MD [...] TABLET 1 po qd PAR OXETINE HCL 60973087187 Active Checo Conklin MD Active MIRALAX ORAL POWDER 8.5 to 17g po qd PRN Constipation POLYETHYLENE GLYCOL 3350 [id number] No Longer Active Checo Conklin MD Active PROTONIX 40 MG ORAL TABLET DELAYED RELEASE 1 pill by m outh daily, for acid reflux PANTOPRAZOLE SODIUM 55103397939 No Longer Activ e Corry Méndez LPN Active FLAGYL 500 MG ORAL TABLET 1 tablet by mouth bid 08/29 METRONIDAZOLE 76802483305 No Longer Active Corry Méndez LPN Active CLARITHROMYCIN 500 MG ORAL TABLET 1 tab po BID x 14 days CLARITHROMYCIN 31851019347 No Longer Active Corry Méndez LPN Active AMOXICILLIN 500 MG ORAL CAPSULE 2 po BID x 14 days for H. Pylori AMOXICILLIN 47969768279 No Longer Active Corry Méndez LPN Active FLUTICASONE PROPIONATE 50 MCG/ACT NASAL SUSPENSION 2 s prays/nostril qd PRN Congestion/Allergies FLUTICASONE PROPIONATE 7616525040 9 No Longer Active Checo Conklin MD Active AMOXICILLIN 500 MG ORAL CAPSULE 2 po BID x 10 days 201 01/15/27 AMOXICILLIN 02863334140 No Longer Active Checo Conklin MD Activ e CLARITIN 10 MG ORAL TABLET 1 tablet by mouth daily as needed for allergies LORATADINE 67894897845 No Longer Active Checo Ortiz MD Active BACTRIM DS 800-160 MG ORAL TABLET 1 tab by mouth twice daily 201 12/19/26 TRIMETHOPRIM-SULFAMETHOXAZOLE 24519063868 No Longer Active Ragini Carrillo MD Active DIFLUCAN 150 MG ORAL TABLET 1 tablet by mouth qod 2015 FLUCONAZOLE 97072880392 No Longer Active Efren Medel APRN Act mike AZITHROMYCIN 250 MG ORAL TABLET 2 po qd x 1 day, then 1 po q d x 4 days AZITHROMYCIN 12232366616 No Longer Active Efren flores APRN Active FLAGYL 500 MG ORAL TABLET 1 tablet by mouth bid 04/13 METRONIDAZOLE 42860156601 No Longer Active Checo Conklin MD Acti ve FOCALIN XR 10 MG ORAL CAPSULE EXTENDED RELEASE 24 HOUR 1 po q a.m. DEXMETHYLPHENIDATE HCL 73568570434 Active Checo Conklin MD Active MAGNESIUM CITRATE 1.745 GM/30ML ORAL SOLUTION 150ml po BID P RN Constipation MAGNESIUM CITRATE 79225481263 No Longer Active Checo Conlkin MD Active BACTROBAN 2 % EXTERNAL CREAM Apply to affected area BID for up to 10 days MUPIROCIN CALCIUM 00578629110 No Longer Active Checo Conklin MD Active HYDROCODONE-ACETAMINOPHEN 5-325 MG ORAL TABLET 1 tab b y mouth every 6 hours as needed HYDROCODONE-ACETAMINOPHEN 55143644112 No Longer Active Checo Conklin MD Active IBUPROFEN 800 MG ORAL TABLET 1 tab every 8 hours with food 03/20 IBUPROFEN 45500532884 No Longer Active Checo Conklin MD Active DIFLUCAN 150 MG ORAL TABLET 1 tablet by mouth if neede d, hold until symptoms start FLUCONAZOLE 17267191841 No Longer Active Checo Conklin MD Active BACTRIM DS 800-160 MG ORAL TABLET 1 tab by mouth twice daily 201 11/23/03 TRIMETHOPRIM-SULFAMETHOXAZOLE 50313548968 No Longer Active K bernice Méndez LPN Active HYDROCODONE-ACETAMINOPHEN 5-325 MG ORAL TABLET 0.5 to 1 tab by mouth every 6 hours as needed HYDROCODONE-ACETAMINOPHEN 32360875601 No Longer Active Checo Conklin MD Active ONDANSETRON 8 MG ORAL TABLET DISINTEGRATING place one tablet on tongue and allow to dissolve every 6 hours as needed for vomitting ONDANSETRON 88698731385 No Longer Active Checo Conklin MD Activ e COMPRO 25 MG RECTAL SUPPOSITORY insert or apply one garza ppository rectally as directed every 12 hours as needed for nausea PROCHLORPERAZINE 22602106600 No Longer Active Checo Conklin MD A ctive SUMATRIPTAN SUCCINATE 100 MG ORAL TABLET Take one PRN for migran e SUMATRIPTAN SUCCINATE 50223013970 No Longer Active Checo Conklin MD Active TRAVEL SICKNESS 25 MG ORAL TABLET CHEWABLE chew and sw allow one tablet every 6 hours as needed MECLIZINE HCL 64862957934 No Longer A ctive Checo Conklin MD Active BUPROPION HCL ER (SR) 100 MG ORAL TABLET EXTENDED RELE ASE 12 HOUR take one tablet by mouth one time daily for one week then take 1 two times daily BUPROPION HCL 09057418661 No Longer Active Checo gallagher MD Active TERBINAFINE HCL 250 MG ORAL TABLET take one table PO one time da moises TERBINAFINE HCL 30584567299 No Longer Active Checo Conklin MD Active METOCLOPRAMIDE HCL 10 MG ORAL TABLET take one PO tid PRN nausea METOCLOPRAMIDE HCL 69416786095 No Longer Active Checo Conklin MD Active DICLOFENAC SODIUM 75 MG ORAL TABLET DELAYED RELEASE 1 tablet by mouth twice daily PRN Knee pain DICLOFENAC SODIUM 21946749529 No Longer Active Checo Conklin MD Active LAMISIL 250 MG ORAL TABLET 1 po qd TERBINAFI NE HCL 64202486271 No Longer Active Checo Conklin MD Active REGLAN 10 MG ORAL TABLET 1 po TID PRN Nausea 3 METOCLOPRAMIDE HCL 53714519228 No Longer Active Checo Conklin MD Active CELEXA 20 MG ORAL TABLET 1 tablet by mouth daily 09/26 CITALOPRAM HYDROBROMIDE 24801623133 No Longer Active Checo Conklin MD Active AZITHROMYCIN 250 MG ORAL TABLET 2 po qd x 1 day, then 1 po q d x 4 days AZITHROMYCIN 64579697711 No Longer Active Checo Ortiz MD Active HYDROCODONE-ACETAMINOPHEN 5-325 MG ORAL TABLET 1 po q 6hr PRN Pa in HYDROCODONE-ACETAMINOPHEN 96909322469 No Longer Active Lenora Conklin MD Active PHENAZOPYRIDINE HCL 200 MG ORAL TABLET take 1 tab po TID for bladder pain PHENAZOPYRIDINE HCL 44767270644 No Longer Active Joe Conklin MD Active CIPRO 500 MG ORAL TABLET 1 tablet by mouth twice daily CIPROFLOXACIN HCL 54499788924 No Longer Active Dangelo Rangel MD Active HYDROCODONE-ACETAMINOPHEN 5-325 MG ORAL TABLET 1/2 to 1 po q 4 hours prn cough HYDROCODONE-ACETAMINOPHEN 52087758138 No Longer Activ e Dangelo Rangel MD Active BACTRIM DS 800-160 MG ORAL TABLET 1 po BID x 7 days 29/04/10 SULFAMETHOXAZOLE-TRIMETHOPRIM 36885157239 No Longer Active Checo Conklin MD Active PREDNISONE 20 MG ORAL TABLET 2 tabs daily for 3 days, 1 tab daily for 3 days, 1/2 tab daily for 2 days PREDNISONE 44537273330 No Longer Active Checo Conklin MD Active TRIAMCINOLONE ACETONIDE 0.1 % EXTERNAL OINTMENT Apply to affected areas TID for up to 2 weeks TRIAMCINOLONE ACETONIDE 19086911332 No Longer Active Checo Conklin MD Active CEFDINIR 300 MG ORAL CAPSULE by mouth twice a day 2013 CEFDINIR 24515467693 No Longer Active Dangelo Rangel MD Acti ve BUPROPION HCL ER (SMOKING DET) 150 MG ORAL TABLET EXTE NDED RELEASE 12 HOUR 1 a day for 1 week then 1 twice a day BUPROPION HCL (SMOKING DETER) 87234413253 No Longer Active Checo Conklin MD Active SIMVASTATIN 20 MG ORAL TABLET 1 po qd SIMVASTAT IN 45681278711 Active Checo Conklin MD Active CHANTIX STARTING MONTH KARTHIK 0.5 MG X 11 & 1 MG X 42 ORA L TABLET 0.5mg daily for 3 days, then 0.5mg BID for 4 days, then 1mg BID VARENICLINE TARTRATE 26560198443 No Longer Active Checo Conklin MD Activ e XANAX 0.5 MG ORAL TABLET 1 po BID PRN anxiety A LPRAZOLAM 06437687665 Active Checo Conklin MD Active CONCERTA 18 MG ORAL TABLET EXTENDED RELEASE 1 po q a.m. METHYLPHENIDATE HCL 48924411430 No Longer Active Checo Conklin MD Active AMBIEN 5 MG ORAL TABLET 1 po qHS PRN Insomnia Z OLPIDEM TARTRATE 55188405948 Active Checo Conklin MD Active TRAZODONE HCL 100 MG ORAL TABLET 0.5 to 1 po qHS PRN Insomnia 20 30/07/08 TRAZODONE HCL 15276518389 No Longer Active Checo Conklin MD Active FIORICET 325-50-40 MG TAB 1 tablet by mouth four times daily as needed [id number] 36458218959 No Longer Active Checo Conklin MD Active PHENERGAN CREAM* 25mg applied to wrist q6hr PRN Nausea PHENERGAN CREAM* No Longer Active Checo Conklin MD A ctive FLONASE 50 MCG/ACT NASAL SUSPENSION 1 spray each nostril am and hs FLUTICASONE PROPIONATE 33172564801 No Longer Active Checo Conklin MD Active ANTIPYRINE-BENZOCAINE 5.4-1.4 % OTIC SOLUTION 1-2 drops in affec yohannes ear BENZOCAINE-ANTIPYRINE 59964287972 No Longer Active Checo Conklin MD Active CEFDINIR 300 MG ORAL CAPSULE 1 po bid CEFDINIR 11621320270 No Longer Active Checo Conklin MD Active PREDNISONE 20 MG ORAL TABLET 2 tabs daily for 3 days, 1 tab daily for 3 days, 1/2 tab daily for 2 days PREDNISONE 90079622072 No Longer Active Checo Conklin MD Active AZITHROMYCIN 250 MG ORAL TABLET 2 po qd x 1 day, then 1 po q d x 4 days AZITHROMYCIN 04102518118 No Longer Active Checo Ortiz MD Active PREDNISONE 20 MG ORAL TABLET 2 tabs daily for 3 days, 1 tab daily for 3 days, 1/2 tab daily for 2 days PREDNISONE 54237882189 No Longer Active Checo Conklin MD Active ZITHROMAX Z-KARTHIK 250 MG ORAL TABLET 2 today, then 1 daily for 4 d ays AZITHROMYCIN 18465728500 No Longer Active Paul Hamlin MD Active FOCALIN XR 10 MG ORAL CAPSULE EXTENDED RELEASE 24 HOUR 1 po q a. m. DEXMETHYLPHENIDATE HCL 05682328787 No Longer Active Paul Hamlin MD Active PERCOCET 10-325 MG ORAL TABLET 1 tablet every 6 hours as needed for pain OXYCODONE-ACETAMINOPHEN 82620842615 No Longer Active Paul Hamlin MD Active LORTAB 5-500 MG ORAL TABLET 1/2 to 1 tablet by mouth e very 4 hours as needed for pain HYDROCODONE-ACETAMINOPHEN 59298959674 No Longer Active Checo Conklin MD Active FOCALIN XR 15 MG ORAL CAPSULE EXTENDED RELEASE 24 HOUR 1 po q a. m. DEXMETHYLPHENIDATE HCL 22031325201 No Longer Active Checo Conklin MD Active ZOFRAN ODT 4 MG ORAL TABLET DISINTEGRATING 1 po q6hr PRN Nausea ONDANSETRON 48952070021 No Longer Active Checo Conklin MD Active PERCOCET 5-325 MG ORAL TABLET 1 tablet by mouth every 6 hour s as needed OXYCODONE-ACETAMINOPHEN 02324929851 No Longer Active Checo Conklin MD Active PYRIDIUM 200 MG ORAL TABLET take 1 tab po TID prn urinary pain. PHENAZOPYRIDINE HCL 96393908168 No Longer Active Checo Joshua Active FLUCONAZOLE 150 MG ORAL TABLET take 1 tab po qday once FLUCONAZOLE 53651165819 No Longer Active Dangelo Rangel MD Acti ve CIPRO 500 MG ORAL TABLET 1 tablet by mouth twice daily CIPROFLOXACIN HCL 86943736049 No Longer Active Dangelo Rangel MD Active PYRIDIUM 200 MG ORAL TABLET take 1 tab po TID prn urinary pain. PYRIDIUM 200 MG ORAL TABLET 4652477 PHENAZOPYRIDINE HCL Inactive PERCOCET 5-325 MG ORAL TABLET 1 tablet by mouth every 6 hour s as needed PERCOCET 5-325 MG ORAL TABLET 9238206 OXYCODONE-ACETAMINOPHEN Inactive ZOFRAN ODT 4 MG ORAL TABLET DISINTEGRATING 1 po q6hr PRN Nausea ZOFRAN ODT 4 MG ORAL TABLET DISINTEGRATING 762291 ONDAN SETRON Inactive FOCALIN XR 15 MG ORAL CAPSULE EXTENDED RELEASE 24 HOUR 1 po q a. m. FOCALIN XR 15 MG ORAL CAPSULE EXTENDED RELEASE 24 HOUR DEXMETHYLPHENIDATE HCL Inactive LORTAB 5-500 MG ORAL TABLET 1/2 to 1 tablet by mouth e very 4 hours as needed for pain LORTAB 5-500 MG ORAL TABLET 194502 HYDROCODONE-ACETAMINOPHEN Inactive PERCOCET 10-325 MG ORAL TABLET 1 tablet every 6 hours as needed for pain PERCOCET 10-325 MG ORAL TABLET 2251997 OXYCODONE-ACETAMI NOPHEN Inactive FOCALIN XR 10 MG ORAL CAPSULE EXTENDED RELEASE 24 HOUR 1 po q a. m. FOCALIN XR 10 MG ORAL CAPSULE EXTENDED RELEASE 24 HOUR DEXMETHYLPHENIDATE HCL Inactive CEFDINIR 300 MG ORAL CAPSULE 1 po bid CEFDINI R 300 MG ORAL CAPSULE 995470 CEFDINIR Inactive ANTIPYRINE-BENZOCAINE 5.4-1.4 % OTIC SOLUTION 1-2 drops in affec yohannes ear ANTIPYRINE-BENZOCAINE 5.4-1.4 % OTIC SOLUTION 326732 BENZOCAINE-ANTIPYRINE Inactive FLONASE 50 MCG/ACT NASAL SUSPENSION 1 spray each nostril am and hs FLONASE 50 MCG/ACT NASAL SUSPENSION 0852967 FLUTICASONE PROPIONATE I nactive PHENERGAN CREAM* 25mg applied to wrist q6hr PRN Nausea PHENERGAN CREAM* Inactive FIORICET 325-50-40 MG TAB 1 tablet by mouth four times daily as needed FIORICET 325-50-40 MG TAB ACETAMINOPHEN-C AFF-BUTALBITAL Inactive TRAZODONE HCL 100 MG ORAL TABLET 0.5 to 1 po qHS PRN Insomnia 20 30/07/08 TRAZODONE HCL 100 MG ORAL TABLET 108576 TRAZODONE HCL Inactive CONCERTA 18 MG ORAL [...] cough HYDROCODONE-ACETAMINOPHEN 5-325 MG ORAL TABLET 8 72042 HYDROCODONE-ACETAMINOPHEN Inactive PHENAZOPYRIDINE HCL 200 MG ORAL TABLET take 1 tab po TID for bladder pain PHENAZOPYRIDINE HCL 200 MG ORAL TABLET 1811214 PHENAZOPYRIDINE HCL Inactive HYDROCODONE-ACETAMINOPHEN 5-325 MG ORAL TABLET 1 po q 6hr PRN Pa in HYDROCODONE-ACETAMINOPHEN 5-325 MG ORAL TABLET 840148 HYDROCODONE-ACETAMINOPHEN Inactive CELEXA 20 MG ORAL TABLET 1 tablet by mouth daily 09/26 CELEXA 20 MG ORAL TABLET 623861 CITALOPRAM HYDROBROMIDE Inactive REGLAN 10 MG ORAL TABLET 1 po TID PRN Nausea 3 REGLAN 10 MG ORAL TABLET 065203 METOCLOPRAMIDE HCL Inactive LAMISIL 250 MG ORAL TABLET 1 po qd L AMISIL 250 MG ORAL TABLET 632045 TERBINAFINE HCL Inactive DICLOFENAC SODIUM 75 MG ORAL TABLET DELAYED RELEASE 1 tablet by mouth twice daily PRN Knee pain DICLOFENAC SODIUM 75 MG ORAL TABLET DELAYED RELEASE 747307 DICLOFENAC SODIUM Inactive METOCLOPRAMIDE HCL 10 MG ORAL TABLET take one PO tid PRN nausea METOCLOPRAMIDE HCL 10 MG ORAL TABLET 539308 METOCLOPRAM ZACH HCL Inactive TERBINAFINE HCL 250 MG ORAL TABLET take one table PO one time da moises TERBINAFINE HCL 250 MG ORAL TABLET 298096 TERBINAFINE H CL Inactive BUPROPION HCL ER [...] SICKNESS 25 M G ORAL TABLET CHEWABLE 812100 MECLIZINE HCL Inactive SUMATRIPTAN SUCCINATE 100 MG ORAL TABLET Take one PRN for migran e SUMATRIPTAN SUCCINATE 100 MG ORAL TABLET 798942 SUMATRIPTAN SUCCINATE Inactive COMPRO 25 MG RECTAL SUPPOSITORY insert or apply one garza ppository rectally as directed every 12 hours as needed for nausea COMPRO 25 MG RECTAL SUPPOSITORY 719600 PROCHLORPERAZINE Inactive ONDANSETRON 8 MG ORAL TABLET DISINTEGRATING place one tablet on tongue and allow to dissolve every 6 hours as needed for vomitting ONDANSETRON 8 MG ORAL TABLET DISINTEGRATING 578968 ONDANSETRON Inactive HYDROCODONE-ACETAMINOPHEN 5-325 MG ORAL TABLET 0.5 to 1 tab by mouth every 6 hours as needed HYDROCODONE-ACETAMIN OPHEN 5-325 MG ORAL TABLET 769989 HYDROCODONE-ACETAMINOPHEN Inactive BACTRIM DS 800-160 MG ORAL TABLET 1 tab by mouth twice daily 201 11/23/03 BACTRIM DS 800-160 MG ORAL TABLET 184363 TRIMETHOPRIM-SULFAMETHOXAZOLE Inactive DIFLUCAN 150 MG ORAL TABLET [...] as needed HYDROCODONE-ACETAMINOPHEN 5-325 MG ORAL TABLET 344719 HYDROCODONE-ACETAMINOPHEN Inactive BACTROBAN 2 % EXTERNAL CREAM Apply to affected area BID for up to 10 days BACTROBAN 2 % EXTERNAL CREAM 063161 MUPIROCIN CA LCIUM Inactive MAGNESIUM CITRATE 1.745 GM/30ML ORAL SOLUTION 150ml po BID P RN Constipation MAGNESIUM CITRATE 1.745 GM/30ML ORAL SOLUTION 10 88400 MAGNESIUM CITRATE Inactive DIFLUCAN 150 MG ORAL TABLET 1 tablet by mouth qod 2015 DIFLUCAN 150 MG ORAL TABLET 107352 FLUCONAZOLE Inactive BACTRIM DS 800-160 MG ORAL TABLET 1 tab by mouth twice daily 201 12/19/26 BACTRIM DS 800-160 MG ORAL TABLET 110907 TRIMETHOPRIM-SULFAMETHOXAZOLE Inactive CLARITIN 10 MG ORAL TABLET 1 tablet by mouth daily as needed for allergies CLARITIN 10 MG ORAL TABLET 705073 LORATADINE I nactive FLUTICASONE PROPIONATE 50 MCG/ACT NASAL SUSPENSION 2 s prays/nostril qd PRN Congestion/Allergies FLUTICASONE PROPION ATE 50 MCG/ACT NASAL SUSPENSION 2269625 FLUTICASONE PROPIONATE Inactive MIRALAX ORAL POWDER 8.5 to 17g po qd PRN Constipation MIRALAX ORAL POWDER 672861 POLYETHYLENE GLYCOL 3350 Inactive CIPRO 500 MG ORAL TABLET 1 tablet by mouth twice daily CIPRO 500 MG ORAL TABLET 483584 CIPROFLOXACIN HCL Inactive FLUCONAZOLE 150 MG ORAL TABLET take 1 tab po qday once FLUCONAZOLE 150 MG ORAL TABLET 803928 FLUCONAZOLE Inactive ZITHROMAX Z-KARTHIK 250 MG ORAL TABLET 2 today, then 1 daily for 4 d ays ZITHROMAX Z-KARTHIK 250 MG ORAL TABLET 687619 AZITHROMYCIN Inactive PREDNISONE 20 MG ORAL TABLET 2 tabs daily for 3 days, 1 tab daily for 3 days, 1/2 tab daily for 2 days PREDNISONE 20 MG ORAL T ABLET 699650 PREDNISONE Inactive AZITHROMYCIN 250 MG ORAL TABLET 2 po qd x 1 day, then 1 po q d x 4 days AZITHROMYCIN 250 MG ORAL TABLET 838779 AZITHROMY SPARKLE Inactive PREDNISONE 20 MG ORAL TABLET 2 tabs daily for 3 days, 1 tab daily for 3 days, 1/2 tab daily for 2 days PREDNISONE 20 MG ORAL TABLET 685269 PREDNISONE Inactive CEFDINIR 300 MG ORAL CAPSULE by mouth twice a day 2013 CEFDINIR 300 MG ORAL CAPSULE 386061 CEFDINIR Inactive TRIAMCINOLONE ACETONIDE 0.1 % EXTERNAL OINTMENT Apply to affected areas TID for up to 2 weeks TRIAMCINOLONE ACETON ZACH 0.1 % EXTERNAL OINTMENT 3600687 TRIAMCINOLONE ACETONIDE Inactive PREDNISONE 20 MG ORAL TABLET 2 tabs daily for 3 days, 1 tab daily for 3 days, 1/2 tab daily for 2 days PREDNISONE 20 MG ORAL T ABLET 888202 PREDNISONE Inactive BACTRIM DS 800-160 MG ORAL TABLET 1 po BID x 7 days 29/04/10 BACTRIM DS 800-160 MG ORAL TABLET 020835 SULFAMETHOXAZOLE-TRIMETHOP RIM Inactive CIPRO 500 MG ORAL TABLET 1 tablet by mouth twice daily CIPRO 500 MG ORAL TABLET 711522 CIPROFLOXACIN HCL Inactive AZITHROMYCIN 250 MG ORAL TABLET 2 po qd x 1 day, then 1 po q d x 4 days AZITHROMYCIN 250 MG ORAL TABLET 317840 AZITHROMY SPARKLE Inactive FLAGYL 500 MG ORAL TABLET 1 tablet by mouth bid 04/13 FLAGYL 500 MG ORAL TABLET 803250 METRONIDAZOLE Inactive AZITHROMYCIN 250 MG ORAL TABLET 2 po qd x 1 day, then 1 po q d x 4 days AZITHROMYCIN 250 MG ORAL TABLET 703774 AZITHROMY SPARKLE Inactive AMOXICILLIN 500 MG ORAL CAPSULE 2 po BID x 10 days 201 01/15/27 AMOXICILLIN 500 MG ORAL CAPSULE 126385 AMOXICILLIN Inactive AMOXICILLIN 500 MG ORAL CAPSULE 2 po BID x 14 days for H. Pylori AMOXICILLIN 500 MG ORAL CAPSULE 541427 AMOXICILLIN Inactive CLARITHROMYCIN 500 MG ORAL TABLET 1 tab po BID x 14 days CLARITHROMYCIN 500 MG ORAL TABLET 340370 CLARITHROMYCIN Inacti ve FLAGYL 500 MG ORAL TABLET 1 tablet by mouth bid 08/29 FLAGYL 500 MG ORAL TABLET 061568 METRONIDAZOLE Inactive PROTONIX 40 MG ORAL TABLET DELAYED RELEASE 1 pill by m outh daily, for acid reflux PROTONIX 40 MG ORAL TABLET DELAYED RELEAS E 260342 PANTOPRAZOLE SODIUM Inactive Immunizations Vaccine Administration Date [...] PANEL - Chemistry cholesterol, serum 192 mg/dL 472-799 5097/02/20 HDL cholesterol, serum 31 mg/dL > OR [...] 11 .0-15.0 platelet count 218 THOUSAND/UL 10*3/mm3 415-642 8813/02/20 mean platelet volume 9.7 fL 7.5-12.5 Lab Report: Comp. Metabolic Panel, Eryth rocyte Sed Rate, UADIP W/MICRO, ... - Chemistry protein, total urine random Negative mg/dL Negative sodium, serum 139 mmol/L 467-230 0693/11/28 carbon dioxide, venous blood 26.0 mmol/L 21.0-32 [...] Negative Encounters Code Encounter Date Provider Facility CPT-87304 Level 4 Est. 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 Patient 11:24:55 [employer] Efren almendarez APRN [facility] CPT-12905 Level 3 Est. Patient 13:05:44 CDT Paul Hamlin MD [facility] CPT-08226 Level 3 Est. Patient 11:29:55 CDT Checo Conklin MD [facility] CPT-78559 Level 4 Est. Patient 11:08:12 [employer]MAN [employer] Checo Conklin MD [facility] CPT-35739 Level 4 Est. 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 Patient 09:11:49 CDT Efren almendarez [facility] CPT-42157 Level 2 Est. Patient 19:53:27 CDT Tanner hill MD [facility] CPT-23358 Level 3 Est. Patient 09:15:34 CDT Efren almendarez [facility] CPT-76642 Level 3 Est. Patient 11:28:51 [employer]OURNEYMAN [employer]UM[employer] Efren almendarez [facility] CPT-54104 Level 4 Est. 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 Patient 17:10:53 CDT Checo Conklin MD [facility] CPT-93705 Level 3 Est. Patient 15:56:22 CDT Checo Conklin MD [facility] CPT-34903 Level 3 Est. Patient 15:29:07 CDT Checo Conklin MD [facility] CPT-75893 Level 3 Est. Patient 14:38:41 CDT Checo Conklin MD [facility] CPT-96108 Level 3 Est. Patient 15:22:03 JOURNEYMAN [employer]UM[employer] Thomas reynolds DO [facility] CPT-89026 Level 3 Est. 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 Patient 12:29:32 CDT Dangelo arroyo MD [facility] CPT-35560 Level 3 Est. Patient 16:53:02 CDT Checo Conklin MD [facility] CPT-27065 Level 3 Est. Patient 16:37:13 CDT Checo Conklin MD [facility] CPT-85057 Level 3 Est. Patient 16:16:59 CDT Paul Hamlin MD [facility] CPT-45951 Level 3 Est. Patient 14:20:13 CDT Dangelo arroyo MD [facility] CPT-89464 Level 4 Est. Patient 11:29:33 CDT Checo Conklin MD [facility] CPT-54995 Level 3 Est. Patient 17:08:31 CDT Checo Conklin MD [facility] CPT-78109 Level 3 Est. 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 Patient 11:37:10 CDT Checo Conklin MD [facility] CPT-86341 Level 4 Est. Patient 14:07:38 CDT Checo Conklin MD [facility] CPT-82578 Level 3 Est. Patient 09:54:41 CDT Checo Conklin MD [facility] CPT-43741 Level 3 Est. Patient 11:10:54 CDT Paul Hamlin MD [facility] CPT-85551 Level 3 Est. 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 Patient 17:09:26 CDT Dangelo arroyo MD [facility] CPT-81300 Level 3 Est. Patient 16:54:37 CDT Checo Conklin MD [facility] Procedures Code Procedure Name Date Entry Date Standard Desc ription CPT-32100 Abd compl w upright - XRAY USE ONLY 1 1:36:54 [employer]NEYMAN [employer]UMBER CPT-31923 UA w micro - LAB USE ONLY 17:06:46 CDT 2015 CPT-47250 BHCG Qual - LAB USE ONLY 17:06:46 CDT 05/06 CPT-67433 CMP - LAB USE ONLY 17:06:46 CDT CPT-95504 CBC with Diff - LAB USE ONLY 17:06:45 CDT 2 CPT-75196 Venipuncture Draw Fee 17:06:45 CDT CPT-LR Lesion Removal 19:53:27 CDT CPT-OV Office Visit 11:31:28 CDT CPT-53275 Tubersol 09:39:29 CDT CPT-J2550 Phenergan 25 mg (Promethazine) 13:59:02 J[employer]NEYMAN [employer]UM[employer] CPT-J1885 Toradol 60 mg (Ketorolac) 13:59:02 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
--- OUTSIDE RECORDS SUMMARY | 2019-09-29 02:22 | XMS REPORT | Clinical Summary ---
Author Author Admin, Bethany Ayala [facility] Address Unknown Phone Unavailable Allergies, Adverse [...] ICD-850.9 Inactive Checo Joshua UTI ICD-599.0 Inactive Chceo Conklin MD 2013 ABDOMINAL PAIN RIGHT LOWER [...] TABS 1.5 po qd PAROX ETINE HCL 93282746912 Active Checo Conklin MD Active FLUTICASONE PROPIONATE 50 MCG/ACT NASAL SUSP 2 sprays/ nostril qd PRN Congestion/Allergies FLUTICASONE PROPIONATE 8867944080 5 No Longer Active Checo Conklin MD Active AMOXICILLIN 500 MG ORAL CAPS 2 po BID x 10 days 09/12 AMOXICILLIN 71569910662 No Longer Active Checo Conklin MD Activ e MIRALAX ORAL POWD 8.5 to 17g po qd PRN Constipation POLYETHYLENE GLYCOL 3350 96087143059 Active Checo Conklin MD Active CLARITIN 10 MG TAB 1 tablet by mouth daily as needed for allergi es LORATADINE 98142474727 No Longer Active Checo Conklin MD Active BACTRIM DS 800-160 MG TAB 1 tab by mouth twice daily 2 TRIMETHOPRIM-SULFAMETHOXAZOLE 61059426638 No Longer Active Tanner Carrillo MD Active DIFLUCAN 150 MG TAB 1 tablet by mouth qod FLUCO NAZOLE 42238065752 No Longer Active Efren Medel APRN Active AZITHROMYCIN 250 MG TABS 2 po qd x 1 day, then 1 po qd x 4 days AZITHROMYCIN 65757196816 No Longer Active Jillina Frajoel SUCTION PLATE ROLLER HAND Active FLAGYL 500 MG TAB 1 tablet by mouth bid METRONI DAZOLE 94147326727 No Longer Active Checo Conklin MD Active FOCALIN XR 10 MG ORAL [id number] 1 po q a.m. DEX METHYLPHENIDATE HCL 46685835012 Active Checo Conklin MD Active MAGNESIUM CITRATE 1.745 GM/30ML ORAL SOLN 150ml po BID PRN C onstipation MAGNESIUM CITRATE 69182358927 No Longer Active Checo Conklin MD Active BACTROBAN 2 % CREAM Apply to affected area BID for up to 10 days MUPIROCIN CALCIUM 05672065298 No Longer Active Checo Conklin MD Active HYDROCODONE-ACETAMINOPHEN 5-325 MG TABS 1 tab by mouth every 6 hours as needed HYDROCODONE-ACETAMINOPHEN 49718006370 No Longer Activ e Checo Conklin MD Active IBUPROFEN 800 MG TABS 1 tab every 8 hours with food 20 31/03/21 IBUPROFEN 43468953887 No Longer Active Checo Conklin MD Activ e DIFLUCAN 150 MG TAB 1 tablet by mouth if needed, hold until symptoms start FLUCONAZOLE 67097949444 No Longer Active Checo Ortiz MD Active BACTRIM DS 800-160 MG TAB 1 tab by mouth twice daily 2 TRIMETHOPRIM-SULFAMETHOXAZOLE 74250388686 No Longer Active Corry leong LPN Active HYDROCODONE-ACETAMINOPHEN 5-325 MG TABS 0.5 to 1 tab b y mouth every 6 hours as needed HYDROCODONE-ACETAMINOPHEN 34711807570 No Longer Active Checo Conklin MD Active ONDANSETRON [address] one tablet on tongue and allow to dissolve every 6 hours as needed for vomitting ONDANSETRO N 06141737959 No Longer Active Checo Conklin MD Active COMPRO 25 MG RECTAL SUPP insert or apply one supposit ory rectally as directed every 12 hours as needed for nausea PROCHLORPERA ZINE 22010321138 No Longer Active Checo Conklin MD Active SUMATRIPTAN SUCCINATE 100 MG ORAL TABS Take one PRN for migrane SUMATRIPTAN SUCCINATE 15501877679 No Longer Active Checo Conklin MD Active TRAVEL SICKNESS 25 MG ORAL CHEW chew and swallow one t ablet every 6 hours as needed MECLIZINE HCL 98970775095 No Longer Active Joe Conklin MD Active BUPROPION HCL ER (SR) 100 MG ORAL [id number] take one t ablet by mouth one time daily for one week then take 1 two times daily BUPROPION HCL 69171897994 No Longer Active Checo Conklin MD Activ e TERBINAFINE HCL 250 MG ORAL TABS take one table PO one time abran y TERBINAFINE HCL 97065439109 No Longer Active Checo Conklin MD Active METOCLOPRAMIDE HCL 10 MG ORAL TABS take one PO tid PRN nausea 20 29/12/14 METOCLOPRAMIDE HCL 07709631532 No Longer Active Checo Conklin MD Active DICLOFENAC SODIUM 75 MG TBEC 1 tablet by mouth twice daily P RN Knee pain DICLOFENAC SODIUM 97003328947 No Longer Active Checo Conklin MD Active LAMISIL 250 MG TAB 1 po qd TERBINAFINE HCL 548 90933585 No Longer Active Checo Conklin MD Active REGLAN 10 MG TAB 1 po TID PRN Nausea METOCLOPRA MIDE HCL 20526735168 No Longer Active Checo Conklin MD Active CELEXA 20 MG TABS 1 tablet by mouth daily CITALOPRAM HYDROBROMIDE 26181966705 No Longer Active Checo Conklin MD Activ e AZITHROMYCIN 250 MG TABS 2 po qd x 1 day, then 1 po qd x 4 days AZITHROMYCIN 25768024022 No Longer Active Checo Conklin MD Active HYDROCODONE-ACETAMINOPHEN 5-325 MG TABS 1 po q 6hr PRN Pain 2013 HYDROCODONE-ACETAMINOPHEN 17509609236 No Longer Active Lenora Conklin MD Active PHENAZOPYRIDINE HCL 200 MG TABS take 1 tab po TID for bladder pa in PHENAZOPYRIDINE HCL 51155133311 No Longer Active Checo Joshua Active CIPRO 500 MG TAB 1 tablet by mouth twice daily CIPROFLOXACIN HCL 53018660492 No Longer Active Dangelo Rangel MD Active HYDROCODONE-ACETAMINOPHEN 5-325 MG TABS 1/2 to 1 po q 4 hour s prn cough HYDROCODONE-ACETAMINOPHEN 84865399069 No Longer Activ e Dangelo Rangel MD Active BACTRIM DS 800-160 MG TABS 1 po BID x 7 days 0 SULFAMETHOXAZOLE-TRIMETHOPRIM 17399654073 No Longer Active Checo Conklin MD Active PREDNISONE 20 MG TAB 2 tabs daily for 3 days, 1 t ab daily for 3 days, 1/2 tab daily for 2 days PREDNISONE 02444750987 No Longer Active Checo Conklin MD Active TRIAMCINOLONE ACETONIDE 0.1 % OINT Apply to affected a reas TID for up to 2 weeks TRIAMCINOLONE ACETONIDE 79764589807 No Longer A ctive Checo Conklin MD Active CEFDINIR 300 MG CAPS by mouth twice a day CEFDI JAZZY 04958184980 No Longer Active Dangelo Rangel MD Active BUPROPION HCL (SMOKING DETER) 150 MG [id number] 1 a day for 1 week then 1 twice a day BUPROPION HCL (SMOKING DETER) 02767503001 No Lo nger Active Checo Conklin MD Active SIMVASTATIN 20 MG TABS 1 po qd SIMVASTATIN 2183448753 5 Active Checo Conklin MD Active CHANTIX STARTING MONTH KARTHIK 0.5 MG X 11 & 1 MG X 42 TAB S 0.5mg daily for 3 days, then 0.5mg BID for 4 days, then 1mg BID VARENICLINE TARTRATE 00594686679 No Longer Active Checo Conklin MD Activ e XANAX 0.5 MG TABS 1 po BID PRN anxiety ALPRAZOLAM 09044218861 Active Checo Conklin MD Active CONCERTA 18 MG CR-TABS 1 po q a.m. METHYLPHENID ATE HCL 08873470326 No Longer Active Checo Conklin MD Active AMBIEN 5 MG TAB 1 po qHS PRN Insomnia ZOLPIDEM TARTRATE 47808448472 Active Checo Conklin MD Active TRAZODONE HCL 100 MG TAB 0.5 to 1 po qHS PRN Insomnia TRAZODONE HCL 11906449893 No Longer Active Checo Conklin MD Acti ve FIORICET 325-50-40 MG TAB 1 tablet by mouth four times daily as needed [id number] 94425339181 No Longer Active Checo Conklin MD Active PHENERGAN CREAM* 25mg applied to wrist q6hr PRN Nausea PHENERGAN CREAM* No Longer Active Checo Conklin MD A ctive FLONASE 50 MCG/ACT SUSP 1 spray each nostril am and hs FLUTICASONE PROPIONATE 31283129705 No Longer Active Checo Conklin MD Activ e ANTIPYRINE-BENZOCAINE 5.4-1.4 % SOLN 1-2 drops in affected ear BENZOCAINE-ANTIPYRINE 27746923300 No Longer Active Checo Conklin MD Active CEFDINIR 300 MG CAPS 1 po bid CEFDINIR 58560001 120 No Longer Active Checo Conklin MD Active PREDNISONE 20 MG TAB 2 tabs daily for 3 days, 1 t ab daily for 3 days, 1/2 tab daily for 2 days PREDNISONE 44363351137 No Longer Active Aracelis Conklin MD Active AZITHROMYCIN 250 MG TABS 2 po qd x 1 day, then 1 po qd x 4 days AZITHROMYCIN 82996620617 No Longer Active Checo Conklin MD Active PREDNISONE 20 MG TAB 2 tabs daily for 3 days, 1 t ab daily for 3 days, 1/2 tab daily for 2 days PREDNISONE 74623072119 No Longer Active Checo Conklin MD Active ZITHROMAX Z-KARTHIK 250 MG TABS 2 today, then 1 daily for 4 days 201 09/18/28 AZITHROMYCIN 10597043944 No Longer Active Paul Hamlin MD Active FOCALIN XR 10 MG [id number] 1 po q a.m. D EXMETHYLPHENIDATE HCL 93212721842 No Longer Active Paul Hamlin MD Activ e PERCOCET 10-325 MG TABS 1 tablet every 6 hours as needed for pain OXYCODONE-ACETAMINOPHEN 90115101739 No Longer Active Paul Hamlin MD Active LORTAB 5 5-500 MG TABS 1/2 to 1 tablet by mouth flaquito ry 4 hours as needed for pain HYDROCODONE-ACETAMINOPHEN 84538986101 No Longer Active Checo Conklin MD Active FOCALIN XR 15 MG [id number] 1 po q a.m. D EXMETHYLPHENIDATE HCL 50319312311 No Longer Active Checo Conklin MD Activ e ZOFRAN ODT 4 MG TBDP 1 po q6hr PRN Nausea ONDAN SETRON 84165429260 No Longer Active Checo Conklin MD Active PERCOCET 5-325 MG TABS 1 tablet by mouth every 6 hours as needed OXYCODONE-ACETAMINOPHEN 18207366245 No Longer Active Checo Conklin MD Active PYRIDIUM 200 MG TABS take 1 tab po TID prn urinary pain. 0 PHENAZOPYRIDINE HCL 86890390695 No Longer Active Checo Conklin MD Active FLUCONAZOLE 150 MG TABS take 1 tab po qday once 04/06 FLUCONAZOLE 83838573353 No Longer Active Dangelo Rangel MD Acti ve CIPRO 500 MG TAB 1 tablet by mouth twice daily CIPROFLOXACIN HCL 61454008377 No Longer Active Dangelo Rangel MD Active PYRIDIUM 200 MG TABS take 1 tab po TID prn urinary pain. 0 PYRIDIUM 200 MG TABS 2265018 PHENAZOPYRIDINE HCL Inactive PERCOCET 5-325 MG TABS 1 tablet by mouth every 6 hours as needed PERCOCET 5-325 MG TABS 7598252 OXYCODONE-ACETAMINOPHEN I nactive ZOFRAN ODT 4 MG TBDP 1 po q6hr PRN Nausea ZOFRAN ODT 4 MG TBDP 746421 ONDANSETRON Inactive FOCALIN XR 15 MG [id number] 1 po q a.m. F OCALIN XR 15 MG [id number] DEXMETHYLPHENIDATE HCL Inactive LORTAB 5 5-500 MG TABS 1/2 to 1 tablet by mouth flaquito ry 4 hours as needed for pain LORTAB 5 5-500 MG TABS HYDROCODONE-A CETAMINOPHEN Inactive PERCOCET 10-325 MG TABS 1 tablet every 6 hours as needed for pain PERCOCET 10-325 MG TABS 3153953 OXYCODONE-ACETAMINOPHEN Inactive FOCALIN XR 10 MG [id number] 1 po q a.m. F OCALIN XR 10 MG [id number] DEXMETHYLPHENIDATE HCL Inactive CEFDINIR 300 MG CAPS 1 po bid CEFDINIR 300 MG CAPS 20 0346 CEFDINIR Inactive ANTIPYRINE-BENZOCAINE 5.4-1.4 % SOLN 1-2 drops in affected ear ANTIPYRINE-BENZOCAINE 5.4-1.4 % SOLN BENZOCAINE-ANTIPYRINE I nactive FLONASE 50 MCG/ACT SUSP 1 spray each nostril am and hs FLONASE 50 MCG/ACT SUSP 8504732 FLUTICASONE PROPIONATE Inactive PHENERGAN CREAM* 25mg applied to wrist q6hr PRN Nausea PHENERGAN CREAM* Inactive FIORICET 325-50-40 MG TAB 1 tablet by mouth four times daily as needed FIORICET 325-50-40 MG TAB ACETAMINOPHEN-C AFF-BUTALBITAL Inactive TRAZODONE HCL 100 MG TAB 0.5 to 1 po qHS PRN Insomnia TRAZODONE HCL 100 MG TAB 417737 TRAZODONE HCL Inactive CONCERTA 18 MG CR-TABS [...] s prn cough HYDROCODONE-ACETAMINOPHEN 5-325 MG TABS 740273 HYDROCODONE-ACETAMINOPHEN Inactive PHENAZOPYRIDINE HCL 200 MG TABS take 1 tab po TID for bladder pa in PHENAZOPYRIDINE HCL 200 MG TABS 3316582 PHENAZOPYRIDINE HCL Inactive HYDROCODONE-ACETAMINOPHEN 5-325 MG TABS 1 po q 6hr PRN Pain 2013 HYDROCODONE-ACETAMINOPHEN 5-325 MG TABS 524104 HYDROCODONE-ACETAMINOPHEN Inactive CELEXA 20 MG TABS 1 tablet by mouth daily CELEXA 20 MG TABS 519727 CITALOPRAM HYDROBROMIDE Inactive REGLAN 10 MG TAB 1 po TID PRN Nausea REGLAN 10 MG TAB 395542 METOCLOPRAMIDE HCL Inactive LAMISIL 250 MG TAB 1 po qd LAMISIL 250 MG TAB 868783 TERBINAFINE HCL Inactive DICLOFENAC SODIUM 75 MG TBEC 1 tablet by mouth twice daily P RN Knee pain DICLOFENAC SODIUM 75 MG TBEC 836589 DICLOFENAC S ODIUM Inactive METOCLOPRAMIDE HCL 10 MG ORAL TABS take one PO tid PRN nausea 20 29/12/14 METOCLOPRAMIDE HCL 10 MG ORAL TABS 196080 METOCLOPRAMID E HCL Inactive TERBINAFINE HCL 250 MG ORAL TABS take one table PO one time abran y TERBINAFINE HCL 250 MG ORAL TABS 500436 TERBINAFINE HCL Inactive BUPROPION HCL ER (SR) 100 MG ORAL [id number] take one t ablet by mouth one time daily for one week then take 1 two times daily BUPROPION HCL ER (SR) 100 MG ORAL [id number] BUPROPION HCL Inacti ve TRAVEL SICKNESS 25 MG ORAL CHEW chew and swallow one t ablet every 6 hours as needed TRAVEL SICKNESS 25 MG ORAL CHEW 817910 MECLIZINE HCL Inactive SUMATRIPTAN SUCCINATE 100 MG ORAL TABS Take one PRN for migrane SUMATRIPTAN SUCCINATE 100 MG ORAL TABS 575495 SUMATRIPT AN SUCCINATE Inactive COMPRO 25 MG RECTAL SUPP insert or apply one supposit ory rectally as directed every 12 hours as needed for nausea COMP RO 25 MG RECTAL SUPP 710106 PROCHLORPERAZINE Inactive ONDANSETRON [address] one tablet on tongue and allow to dissolve every 6 hours as needed for vomitting ON DANSETRON 8 MG ORAL TBDP 824361 ONDANSETRON Inactive HYDROCODONE-ACETAMINOPHEN 5-325 MG TABS 0.5 to 1 tab b y mouth every 6 hours as needed HYDROCODONE-ACETAMINOPHEN 5-325 MG TABS 8 15912 HYDROCODONE-ACETAMINOPHEN Inactive BACTRIM DS 800-160 MG TAB 1 tab by mouth twice daily 2 BACTRIM DS 800-160 MG TAB 087673 TRIMETHOPRIM-SULFAMETHOXAZOLE Inac tive DIFLUCAN 150 MG TAB 1 tablet by mouth if needed, hold until symptoms start DIFLUCAN 150 MG TAB 19760325 FLUCONAZOLE Inactive IBUPROFEN 800 MG TABS 1 tab every 8 hours with food 31/03/21 IBUPROFEN 800 MG TABS 040461 IBUPROFEN Inactive HYDROCODONE-ACETAMINOPHEN 5-325 MG TABS 1 tab by mouth every 6 hours as needed HYDROCODONE-ACETAMINOPHEN 5-325 MG TABS 707682 HYDROCODONE-ACETAMINOPHEN Inactive BACTROBAN 2 % CREAM Apply to affected area BID for up to 10 days BACTROBAN 2 % CREAM 200842 MUPIROCIN CALCIUM Inactive MAGNESIUM CITRATE 1.745 GM/30ML ORAL SOLN 150ml po BID PRN C onstipation MAGNESIUM CITRATE 1.745 GM/30ML ORAL SOLN 963431 0 MAGNESIUM CITRATE Inactive DIFLUCAN 150 MG TAB 1 tablet by mouth qod DIFLUCAN 150 MG TAB 331162 FLUCONAZOLE Inactive BACTRIM DS 800-160 MG TAB 1 tab by mouth twice daily 2 BACTRIM DS 800-160 MG TAB 19820918 TRIMETHOPRIM-SULFAMETHOXAZOLE Inac tive CLARITIN 10 MG TAB 1 tablet by mouth daily as needed for allergi es CLARITIN 10 MG TAB 883215 LORATADINE Inactive FLUTICASONE PROPIONATE 50 MCG/ACT NASAL SUSP 2 sprays/ nostril qd PRN Congestion/Allergies FLUTICASONE PROPION ATE 50 MCG/ACT NASAL SUSP 3740941 FLUTICASONE PROPIONATE Inactive CIPRO 500 MG TAB 1 tablet by mouth twice daily CIPRO 500 MG TAB 867787 CIPROFLOXACIN HCL Inactive FLUCONAZOLE 150 MG TABS take 1 tab po qday once 04/06 FLUCONAZOLE 150 MG TABS 210097 FLUCONAZOLE Inactive ZITHROMAX Z-KARTHIK 250 MG TABS 2 today, then 1 daily for 4 days 201 09/18/28 ZITHROMAX Z-KARTHIK 250 MG TABS 9875954 AZITHROMYCIN Inac tive PREDNISONE 20 MG TAB 2 tabs daily for 3 days, 1 t ab daily for 3 days, 1/2 tab daily for 2 days PREDNISONE 20 MG TAB 795134 PREDNISON E Inactive AZITHROMYCIN 250 MG TABS 2 po qd x 1 day, then 1 po qd x 4 days AZITHROMYCIN 250 MG TABS 7987969 AZITHROMYCIN Inactiv e PREDNISONE 20 MG TAB 2 tabs daily for 3 days, 1 t ab daily for 3 days, 1/2 tab daily for 2 days PREDNISONE 20 MG TAB 758605 PREDNISON E Inactive CEFDINIR 300 MG CAPS by mouth twice a day CEFDINIR 300 MG CAPS 069818 CEFDINIR Inactive TRIAMCINOLONE ACETONIDE 0.1 % OINT Apply to affected a reas TID for up to 2 weeks TRIAMCINOLONE ACETONIDE 0.1 % OINT 616621 6 TRIAMCINOLONE ACETONIDE Inactive PREDNISONE 20 MG TAB 2 tabs daily for 3 days, 1 t ab daily for 3 days, 1/2 tab daily for 2 days PREDNISONE 20 MG TAB 438153 PREDNISON E Inactive BACTRIM DS 800-160 MG TABS 1 po BID x 7 days 0 BACTRIM DS 800-160 MG TABS 100761 SULFAMETHOXAZOLE-TRIMETHOPRIM Inactive CIPRO 500 MG TAB 1 tablet by mouth twice daily CIPRO 500 MG TAB 446440 CIPROFLOXACIN HCL Inactive AZITHROMYCIN 250 MG TABS 2 po qd x 1 day, then 1 po qd x 4 days AZITHROMYCIN 250 MG TABS 3424781 AZITHROMYCIN Inactiv e FLAGYL 500 MG TAB 1 tablet by mouth bid FLAGYL 500 MG TAB 677424 METRONIDAZOLE Inactive AZITHROMYCIN 250 MG TABS 2 po qd x 1 day, then 1 po qd x 4 days AZITHROMYCIN 250 MG TABS 2296987 AZITHROMYCIN Inactiv e AMOXICILLIN 500 MG ORAL CAPS 2 po BID x 10 days 09/12 AMOXICILLIN 500 MG ORAL CAPS 927157 AMOXICILLIN Inactive Immunizations Vaccine Administration Date Value [...] Report: CBC W/DIFF, Comp. Metabolic Panel, Qual [facility] [place] - Chemistry sodium, serum 139 mmol/L 078-886 3652/10/21 carbon dioxide, venous blood 33.5 mmol/L 21.0-32 [...] Report: CBC W/DIFF, Comp. Metabolic Panel, Qual [facility] [place] - Hematology leukocyte [...] PANEL - Chemistry cholesterol, serum 192 mg/dL 579-037 9347/02/20 HDL cholesterol, serum 31 mg/dL > OR [...] 11 .0-15.0 platelet count 218 THOUSAND/UL 10*3/mm3 444-083 2481/02/20 mean platelet volume 9.7 fL 7.5-12.5 Lab Report: Chlamydia/GC APTIMA/22022 - Lab chlamydia DNA probe NOT DETECTED NOT DETECTED Lab Report: Chlamydia/GC [facility]TIMA/14886 - Microbiology Neisseria gonorrhoeae DNA probe NOT [...] 5.0-8.5 Encounters Code Encounter Date Provider Facility CPT-62317 Level 3 Est. Patient 13:05:44 CDT Paul Hamlin MD [facility] CPT-41019 Level 3 Est. Patient 11:29:55 CDT Checo Conklin MD [facility] CPT-85922 Level 4 Est. Patient 11:08:12 [employer] Checo Conklin MD [facility] CPT-40875 Level 4 Est. Patient 16:06:48 [employer] Checo Conklin MD [facility] CPT-05777 Level 3 Est. Patient 09:11:49 CDT Efren almendarez [facility] CPT-23311 Level 2 Est. Patient 19:53:27 CDT Tanner hill MD [facility] CPT-26860 Level 3 Est. Patient 09:15:34 CDT Efren almendarez [facility] CPT-01328 Level 3 Est. Patient 11:28:51 [employer] Efren almendarez [facility] CPT-71055 Level 4 Est. Patient 13:55:46 [employer] Checo Conklin MD [facility] CPT-83044 Level 4 Est. Patient 17:10:53 CDT Checo Conklin MD [facility] CPT-30394 Level 3 Est. Patient 15:56:22 CDT Checo Conklin MD [facility] CPT-58277 Level 3 Est. Patient 15:29:07 CDT Checo Conklin MD [facility] CPT-27031 Level 3 Est. Patient 14:38:41 CDT Checo Conklin MD [facility] CPT-41258 Level 3 Est. Patient 15:22:03 [employer] Thomas reynolds DO [facility] CPT-08170 Level 3 Est. Patient 13:34:17 [employer] Checo Conklin MD [facility] CPT-82064 Level 3 Est. Patient 12:29:32 CDT Dangelo arroyo MD [facility] CPT-44388 Level 3 Est. Patient 16:53:02 CDT Checo Conklin MD [facility] CPT-69032 Level 3 Est. Patient 16:37:13 CDT Checo Conklin MD [facility] CPT-39959 Level 3 Est. Patient 16:16:59 CDT Paul Hamlin MD [facility] CPT-06810 Level 3 Est. Patient 14:20:13 CDT Dangelo arroyo MD [facility] CPT-23570 Level 4 Est. Patient 11:29:33 CDT Checo Conklin MD [facility] CPT-03524 Level 3 Est. Patient 17:08:31 CDT Checo Conklin MD [facility] CPT-13285 Level 3 Est. Patient 16:50:42 [employer] Checo Conklin MD [facility] CPT-05380 Level 4 Est. Patient 09:26:08 [employer] Checo Conklin MD [facility]-39293 Level 3 Est. Patient 11:37:10 CDT Checo Conklin MD [facility] CPT-94041 Level 4 Est. Patient 14:07:38 CDT Checo Conklin MD [facility] CPT-81764 Level 3 Est. Patient 09:54:41 CDT Checo Conklin MD [facility] CPT-24570 Level 3 Est. Patient 11:10:54 CDT Paul Hamlin MD [facility] CPT-85008 Level 3 Est. Patient 14:16:56 [employer] Checo Conklin MD [facility] CPT-60444 Level 3 Est. Patient 11:04:11 [employer] Checo Conklin MD [facility] CPT-33648 Level 3 Est. Patient 17:09:26 CDT Dangelo arroyo MD [facility] CPT-69043 Level 3 Est. Patient 16:54:37 CDT Checo Conklin MD [facility] Procedures Code Procedure Name Date Entry Date Standard Desc ription CPT-42002 UA w micro - LAB USE ONLY 17:06:46 CDT 2015 CPT-84526 [facility] Qual - LAB USE ONLY 17:06:46 CDT 05/06 CPT-65380 CMP - LAB USE ONLY 17:06:46 CDT CPT-61540 CBC with Diff - LAB USE ONLY 17:06:45 CDT 2 CPT-93994 Venipuncture Draw Fee 17:06:45 CDT CPT-LR Lesion Removal 19:53:27 CDT CPT-OV Office Visit 11:31:28 CDT CPT-96831 Tubersol 09:39:29 CDT CPT-J2550 Phenergan 25 mg (Promethazine) 13:59:02 [employer] CPT-J1885 Toradol 60 mg (Ketorolac) 13:59:02 [employer] 2012
--- OUTSIDE RECORDS SUMMARY | 2019-09-29 02:23 | XMS REPORT | Clinical Summary ---
Author Author Admin, Bethany Gonzales Organization [employer] Address Unknown Phone Unavailable Allergies, Adverse Reactions, [...] TABS 1.5 po qd PAROX ETINE HCL 11145310692 Active Checo Conklin MD Active FLUTICASONE PROPIONATE 50 MCG/ACT NASAL SUSP 2 sprays/ nostril qd PRN Congestion/Allergies FLUTICASONE PROPIONATE 6510567737 5 No Longer Active Checo Conklin MD Active AMOXICILLIN 500 MG ORAL CAPS 2 po BID x 10 days 09/12 AMOXICILLIN 82866416868 No Longer Active Checo Conklin MD Activ e MIRALAX ORAL POWD 8.5 to 17g po qd PRN Constipation POLYETHYLENE GLYCOL 3350 97069617532 Active Checo Conklin MD Active CLARITIN 10 MG TAB 1 tablet by mouth daily as needed for allergi es LORATADINE 69337465044 No Longer Active Checo Conklin MD Active BACTRIM DS 800-160 MG TAB 1 tab by mouth twice daily 2 TRIMETHOPRIM-SULFAMETHOXAZOLE 97733217812 No Longer Active Tanner Carrillo MD Active DIFLUCAN 150 MG TAB 1 tablet by mouth qod FLUCO NAZOLE 90196968999 No Longer Active Efren Medel APRN Active AZITHROMYCIN 250 MG TABS 2 po qd x 1 day, then 1 po qd x 4 days AZITHROMYCIN 12020780411 No Longer Active Efren Medel APRN Active FLAGYL 500 MG TAB 1 tablet by mouth bid METRONI DAZOLE 78615286799 No Longer Active Checo Conklin MD Active FOCALIN XR 10 MG ORAL [id number] 1 po q a.m. DEX METHYLPHENIDATE HCL 97982371188 Active Checo Conklin MD Active MAGNESIUM CITRATE 1.745 GM/30ML ORAL SOLN 150ml po BID PRN C onstipation MAGNESIUM CITRATE 88211971373 No Longer Active Checo Coknlin MD Active BACTROBAN 2 % CREAM Apply to affected area BID for up to 10 days MUPIROCIN CALCIUM 64354667046 No Longer Active Checo Conklin MD Active HYDROCODONE-ACETAMINOPHEN 5-325 MG TABS 1 tab by mouth every 6 hours as needed HYDROCODONE-ACETAMINOPHEN 71813206077 No Longer Activ e Checo Conklin MD Active IBUPROFEN 800 MG TABS 1 tab every 8 hours with food 20 31/03/21 IBUPROFEN 08853176207 No Longer Active Checo Conklin MD Activ e DIFLUCAN 150 MG TAB 1 tablet by mouth if needed, hold until symptoms start FLUCONAZOLE 35929398256 No Longer Active Checo Ortiz MD Active BACTRIM DS 800-160 MG TAB 1 tab by mouth twice daily 2 TRIMETHOPRIM-SULFAMETHOXAZOLE 40093626316 No Longer Active Corry leong LPN Active HYDROCODONE-ACETAMINOPHEN 5-325 MG TABS 0.5 to 1 tab b y mouth every 6 hours as needed HYDROCODONE-ACETAMINOPHEN 31979750690 No Longer Active Checo Conklin MD Active ONDANSETRON [address] one tablet on tongue and allow to dissolve every 6 hours as needed for vomitting ONDANSETRO N 87089329391 No Longer Active Checo Conklin MD Active COMPRO 25 MG RECTAL SUPP insert or apply one supposit ory rectally as directed every 12 hours as needed for nausea PROCHLORPERA ZINE 72951706853 No Longer Active Checo Conklin MD Active SUMATRIPTAN SUCCINATE 100 MG ORAL TABS Take one PRN for migrane SUMATRIPTAN SUCCINATE 14623576729 No Longer Active Checo Conklin MD Active TRAVEL SICKNESS 25 MG ORAL CHEW chew and swallow one t ablet every 6 hours as needed MECLIZINE HCL 11047987388 No Longer Active Joe Conklin MD Active BUPROPION HCL ER (SR) 100 MG ORAL [id number] take one t ablet by mouth one time daily for one week then take 1 two times daily BUPROPION HCL 53002644823 No Longer Active Checo Conklin MD Activ e TERBINAFINE HCL 250 MG ORAL TABS take one table PO one time abran y TERBINAFINE HCL 38664307753 No Longer Active Checo Conklin MD Active METOCLOPRAMIDE HCL 10 MG ORAL TABS take one PO tid PRN nausea 20 29/12/14 METOCLOPRAMIDE HCL 15265792045 No Longer Active Checo Conklin MD Active DICLOFENAC SODIUM 75 MG TBEC 1 tablet by mouth twice daily P RN Knee pain DICLOFENAC SODIUM 25769266239 No Longer Active Checo Conklin MD Active LAMISIL 250 MG TAB 1 po qd TERBINAFINE HCL 548 59310759 No Longer Active Checo Conklin MD Active REGLAN 10 MG TAB 1 po TID PRN Nausea METOCLOPRA MIDE HCL 52025547846 No Longer Active Checo Conklin MD Active CELEXA 20 MG TABS 1 tablet by mouth daily CITALOPRAM HYDROBROMIDE 14628553423 No Longer Active Checo Conklin MD Activ e AZITHROMYCIN 250 MG TABS 2 po qd x 1 day, then 1 po qd x 4 days AZITHROMYCIN 21091809442 No Longer Active Checo Conklin MD Active HYDROCODONE-ACETAMINOPHEN 5-325 MG TABS 1 po q 6hr PRN Pain 2013 HYDROCODONE-ACETAMINOPHEN 63181025437 No Longer Active Lenora Conklin MD Active PHENAZOPYRIDINE HCL 200 MG TABS take 1 tab po TID for bladder pa in PHENAZOPYRIDINE HCL 48207478230 No Longer Active Checo Joshua Active CIPRO 500 MG TAB 1 tablet by mouth twice daily CIPROFLOXACIN HCL 60322961444 No Longer Active Dangelo Rangel MD Active HYDROCODONE-ACETAMINOPHEN 5-325 MG TABS 1/2 to 1 po q 4 hour s prn cough HYDROCODONE-ACETAMINOPHEN 90806000392 No Longer Activ e Dangelo Rangel MD Active BACTRIM DS 800-160 MG TABS 1 po BID x 7 days 0 SULFAMETHOXAZOLE-TRIMETHOPRIM 72472985386 No Longer Active Checo Conklin MD Active PREDNISONE 20 MG TAB 2 tabs daily for 3 days, 1 t ab daily for 3 days, 1/2 tab daily for 2 days PREDNISONE 97872576320 No Longer Active Checo Conklin MD Active TRIAMCINOLONE ACETONIDE 0.1 % OINT Apply to affected a reas TID for up to 2 weeks TRIAMCINOLONE ACETONIDE 75685420075 No Longer A ctive Checo Conklin MD Active CEFDINIR 300 MG CAPS by mouth twice a day CEFDI JAZZY 61481270804 No Longer Active Dangelo Rangel MD Active BUPROPION HCL (SMOKING DETER) 150 MG [id number] 1 a day for 1 week then 1 twice a day BUPROPION HCL (SMOKING DETER) 26221686918 No Lo nger Active Checo Conklin MD Active SIMVASTATIN 20 MG TABS 1 po qd SIMVASTATIN 4898250245 5 Active Checo Conklin MD Active CHANTIX STARTING MONTH KARTHIK 0.5 MG X 11 & 1 MG X 42 TAB S 0.5mg daily for 3 days, then 0.5mg BID for 4 days, then 1mg BID VARENICLINE TARTRATE 66369858444 No Longer Active Checo Conklin MD Activ e XANAX 0.5 MG TABS 1 po BID PRN anxiety ALPRAZOLAM 66435173088 Active Checo Conklin MD Active CONCERTA 18 MG CR-TABS 1 po q a.m. METHYLPHENID ATE HCL 85907618854 No Longer Active Checo Conklin MD Active AMBIEN 5 MG TAB 1 po qHS PRN Insomnia ZOLPIDEM TARTRATE 78982908891 Active Checo Conklin MD Active TRAZODONE HCL 100 MG TAB 0.5 to 1 po qHS PRN Insomnia TRAZODONE HCL 29031065267 No Longer Active Checo Conklin MD Acti ve FIORICET 325-50-40 MG TAB 1 tablet by mouth four times daily as needed [id number] 76020282859 No Longer Active Checo Conklin MD Active PHENERGAN CREAM* 25mg applied to wrist q6hr PRN Nausea PHENERGAN CREAM* No Longer Active Checo Conklin MD A ctive FLONASE 50 MCG/ACT SUSP 1 spray each nostril am and hs FLUTICASONE PROPIONATE 95651488205 No Longer Active Checo Conklin MD Activ e ANTIPYRINE-BENZOCAINE 5.4-1.4 % SOLN 1-2 drops in affected ear BENZOCAINE-ANTIPYRINE 95410020672 No Longer Active Checo Conklin MD Active CEFDINIR 300 MG CAPS 1 po bid CEFDINIR 11682225 120 No Longer Active Checo Conklin MD Active PREDNISONE 20 MG TAB 2 tabs daily for 3 days, 1 t ab daily for 3 days, 1/2 tab daily for 2 days PREDNISONE 92321647790 No Longer Active Aracelis Conklin MD Active AZITHROMYCIN 250 MG TABS 2 po qd x 1 day, then 1 po qd x 4 days AZITHROMYCIN 17463856869 No Longer Active Checo Conklin MD Active PREDNISONE 20 MG TAB 2 tabs daily for 3 days, 1 t ab daily for 3 days, 1/2 tab daily for 2 days PREDNISONE 59118164238 No Longer Active Checo Conklin MD Active ZITHROMAX Z-KARTHIK 250 MG TABS 2 today, then 1 daily for 4 days 201 09/18/28 AZITHROMYCIN 53621323242 No Longer Active Paul Hamlin MD Active FOCALIN XR 10 MG [id number] 1 po q a.m. D EXMETHYLPHENIDATE HCL 41355109596 No Longer Active Paul Hamlin MD Activ e PERCOCET 10-325 MG TABS 1 tablet every 6 hours as needed for pain OXYCODONE-ACETAMINOPHEN 86701500279 No Longer Active Paul Hamlin MD Active LORTAB 5 5-500 MG TABS 1/2 to 1 tablet by mouth flaquito ry 4 hours as needed for pain HYDROCODONE-ACETAMINOPHEN 24722901570 No Longer Active Checo Conklin MD Active FOCALIN XR 15 MG [id number] 1 po q a.m. D EXMETHYLPHENIDATE HCL 62892559187 No Longer Active Checo Conklin MD Activ e ZOFRAN ODT 4 MG TBDP 1 po q6hr PRN Nausea ONDAN SETRON 79745970683 No Longer Active Checo Conklin MD Active PERCOCET 5-325 MG TABS 1 tablet by mouth every 6 hours as needed OXYCODONE-ACETAMINOPHEN 57113931172 No Longer Active Checo Conklin MD Active PYRIDIUM 200 MG TABS take 1 tab po TID prn urinary pain. 0 PHENAZOPYRIDINE HCL 54243026024 No Longer Active Checo Conklin MD Active FLUCONAZOLE 150 MG TABS take 1 tab po qday once 04/06 FLUCONAZOLE 25691770699 No Longer Active Dangelo Rangel MD Acti ve CIPRO 500 MG TAB 1 tablet by mouth twice daily CIPROFLOXACIN HCL 50547128047 No Longer Active Dangelo Rangel MD Active PYRIDIUM 200 MG TABS take 1 tab po TID prn urinary pain. 0 PYRIDIUM 200 MG TABS 9694302 PHENAZOPYRIDINE HCL Inactive PERCOCET 5-325 MG TABS 1 tablet by mouth every 6 hours as needed PERCOCET 5-325 MG TABS 3311900 OXYCODONE-ACETAMINOPHEN I nactive ZOFRAN ODT 4 MG TBDP 1 po q6hr PRN Nausea ZOFRAN ODT 4 MG TBDP 024504 ONDANSETRON Inactive FOCALIN XR 15 MG [id number] 1 po q a.m. F OCALIN XR 15 MG [id number] DEXMETHYLPHENIDATE HCL Inactive LORTAB 5 5-500 MG TABS 1/2 to 1 tablet by mouth flaquito ry 4 hours as needed for pain LORTAB 5 5-500 MG TABS HYDROCODONE-A CETAMINOPHEN Inactive PERCOCET 10-325 MG TABS 1 tablet every 6 hours as needed for pain PERCOCET 10-325 MG TABS 0757244 OXYCODONE-ACETAMINOPHEN Inactive FOCALIN XR 10 MG [id number] 1 po q a.m. F OCALIN XR 10 MG [id number] DEXMETHYLPHENIDATE HCL Inactive CEFDINIR 300 MG CAPS [...] PRN Insomnia TRAZODONE HCL 100 MG TAB 422018 TRAZODONE HCL Inactive CONCERTA 18 MG CR-TABS [...] s prn cough HYDROCODONE-ACETAMINOPHEN 5-325 MG TABS 548416 HYDROCODONE-ACETAMINOPHEN Inactive PHENAZOPYRIDINE HCL 200 MG TABS take 1 tab po TID for bladder pa in PHENAZOPYRIDINE HCL 200 MG TABS 4253520 PHENAZOPYRIDINE HCL Inactive HYDROCODONE-ACETAMINOPHEN 5-325 MG TABS 1 po q 6hr PRN Pain 2013 HYDROCODONE-ACETAMINOPHEN 5-325 MG TABS 650123 HYDROCODONE-ACETAMINOPHEN Inactive CELEXA 20 MG TABS 1 tablet by mouth daily CELEXA 20 MG TABS 047966 CITALOPRAM HYDROBROMIDE Inactive REGLAN 10 MG TAB 1 po TID PRN Nausea REGLAN 10 MG TAB 362557 METOCLOPRAMIDE HCL Inactive LAMISIL 250 MG TAB 1 po qd LAMISIL 250 MG TAB 673446 TERBINAFINE HCL Inactive DICLOFENAC SODIUM 75 MG TBEC 1 tablet by mouth twice daily P RN Knee pain DICLOFENAC SODIUM 75 MG TBEC 140765 DICLOFENAC S ODIUM Inactive METOCLOPRAMIDE HCL 10 MG ORAL TABS take one PO tid PRN nausea 20 29/12/14 METOCLOPRAMIDE HCL 10 MG ORAL TABS 472469 METOCLOPRAMID E HCL Inactive TERBINAFINE HCL 250 MG ORAL TABS take one table PO one time abran y TERBINAFINE HCL 250 MG ORAL TABS 596041 TERBINAFINE HCL Inactive BUPROPION HCL ER (SR) 100 MG ORAL [id number] take one t ablet by mouth one time daily for one week then take 1 two times daily BUPROPION HCL ER (SR) 100 MG ORAL [id number] BUPROPION HCL Inacti ve TRAVEL SICKNESS 25 MG ORAL CHEW chew and swallow one t ablet every 6 hours as needed TRAVEL SICKNESS 25 MG ORAL CHEW 339675 MECLIZINE HCL Inactive SUMATRIPTAN SUCCINATE 100 MG ORAL TABS Take one PRN for migrane SUMATRIPTAN SUCCINATE 100 MG ORAL TABS 346200 SUMATRIPT AN SUCCINATE Inactive COMPRO 25 MG RECTAL SUPP insert or apply one supposit ory rectally as directed every 12 hours as needed for nausea COMP RO 25 MG RECTAL SUPP 523778 PROCHLORPERAZINE Inactive ONDANSETRON [address] one tablet on tongue and allow to dissolve every 6 hours as needed for vomitting ON DANSETRON 8 MG ORAL TBDP 655482 ONDANSETRON Inactive HYDROCODONE-ACETAMINOPHEN 5-325 MG TABS 0.5 to 1 tab b y mouth every 6 hours as needed HYDROCODONE-ACETAMINOPHEN 5-325 MG TABS 8 32725 HYDROCODONE-ACETAMINOPHEN Inactive BACTRIM DS 800-160 MG TAB 1 tab by mouth twice daily 2 BACTRIM DS 800-160 MG TAB 848349 TRIMETHOPRIM-SULFAMETHOXAZOLE Inac tive DIFLUCAN 150 MG TAB 1 tablet by mouth if needed, hold until symptoms start DIFLUCAN 150 MG TAB 19760325 FLUCONAZOLE Inactive IBUPROFEN 800 MG TABS 1 tab every 8 hours with food 31/03/21 IBUPROFEN 800 MG TABS 233451 IBUPROFEN Inactive HYDROCODONE-ACETAMINOPHEN 5-325 MG TABS 1 tab by mouth every 6 hours as needed HYDROCODONE-ACETAMINOPHEN 5-325 MG TABS 987921 HYDROCODONE-ACETAMINOPHEN Inactive BACTROBAN 2 % CREAM Apply to affected area BID for up to 10 days BACTROBAN 2 % CREAM 154613 MUPIROCIN CALCIUM Inactive MAGNESIUM CITRATE 1.745 GM/30ML ORAL SOLN 150ml po BID PRN C onstipation MAGNESIUM CITRATE 1.745 GM/30ML ORAL SOLN 877757 0 MAGNESIUM CITRATE Inactive DIFLUCAN 150 MG TAB 1 tablet by mouth qod DIFLUCAN 150 MG TAB 826133 FLUCONAZOLE Inactive BACTRIM DS 800-160 MG TAB 1 tab by mouth twice daily 2 BACTRIM DS 800-160 MG TAB 200943 TRIMETHOPRIM-SULFAMETHOXAZOLE Inac tive CLARITIN 10 MG TAB 1 tablet by mouth daily as needed for allergi es CLARITIN 10 MG TAB 862520 LORATADINE Inactive FLUTICASONE PROPIONATE 50 MCG/ACT NASAL SUSP 2 sprays/ nostril qd PRN Congestion/Allergies FLUTICASONE PROPION ATE 50 MCG/ACT NASAL SUSP 4986295 FLUTICASONE PROPIONATE Inactive CIPRO 500 MG TAB 1 tablet by mouth twice daily CIPRO 500 MG TAB 295470 CIPROFLOXACIN HCL Inactive FLUCONAZOLE 150 MG TABS take 1 tab po qday once 04/06 FLUCONAZOLE 150 MG TABS 504841 FLUCONAZOLE Inactive ZITHROMAX Z-KARTHIK 250 MG TABS 2 today, then 1 daily for 4 days 201 09/18/28 ZITHROMAX Z-KARTHIK 250 MG TABS 5632414 AZITHROMYCIN Inac tive PREDNISONE 20 MG TAB 2 tabs daily for 3 days, 1 t ab daily for 3 days, 1/2 tab daily for 2 days PREDNISONE 20 MG TAB 045323 PREDNISON E Inactive AZITHROMYCIN 250 MG TABS 2 po qd x 1 day, then 1 po qd x 4 days AZITHROMYCIN 250 MG TABS 4796013 AZITHROMYCIN Inactiv e PREDNISONE 20 MG TAB 2 tabs daily for 3 days, 1 t ab daily for 3 days, 1/2 tab daily for 2 days PREDNISONE 20 MG TAB 338237 PREDNISON E Inactive CEFDINIR 300 MG CAPS by mouth twice a day CEFDINIR 300 MG CAPS 162806 CEFDINIR Inactive TRIAMCINOLONE ACETONIDE 0.1 % OINT Apply to affected a reas TID for up to 2 weeks TRIAMCINOLONE ACETONIDE 0.1 % OINT 780523 6 TRIAMCINOLONE ACETONIDE Inactive PREDNISONE 20 MG TAB 2 tabs daily for 3 days, 1 t ab daily for 3 days, 1/2 tab daily for 2 days PREDNISONE 20 MG TAB 220495 PREDNISON E Inactive BACTRIM DS 800-160 MG TABS 1 po BID x 7 days 0 BACTRIM DS 800-160 MG TABS 335283 SULFAMETHOXAZOLE-TRIMETHOPRIM Inactive CIPRO 500 MG TAB 1 tablet by mouth twice daily CIPRO 500 MG TAB 642860 CIPROFLOXACIN HCL Inactive AZITHROMYCIN 250 MG TABS 2 po qd x 1 day, then 1 po qd x 4 days AZITHROMYCIN 250 MG TABS 3607903 AZITHROMYCIN Inactiv e FLAGYL 500 MG TAB 1 tablet by mouth bid FLAGYL 500 MG TAB 739080 METRONIDAZOLE Inactive AZITHROMYCIN 250 MG TABS 2 po qd x 1 day, then 1 po qd x 4 days AZITHROMYCIN 250 MG TABS 5671657 AZITHROMYCIN Inactiv e AMOXICILLIN 500 MG ORAL CAPS 2 po BID x 10 days 09/12 AMOXICILLIN 500 MG ORAL CAPS 380149 AMOXICILLIN Inactive Immunizations Vaccine Administration Date Value [...] CITY - Chemistry sodium, serum 139 mmol/L 868-861 4518/10/21 carbon dioxide, venous blood 33.5 mmol/L 21.0-32 [...] PANEL - Chemistry cholesterol, serum 192 mg/dL 950-137 3635/02/20 HDL cholesterol, serum 31 mg/dL > OR [...] 11 .0-15.0 platelet count 218 THOUSAND/UL 10*3/mm3 963-306 5975/02/20 mean platelet volume 9.7 fL 7.5-12.5 Lab Report: Chlamydia/GC APTIMA/[id number] - Lab chlamydia DNA probe NOT DETECTED NOT DETECTED Lab Report: Chlamydia/GC APTIMA/10531 - Microbiology Neisseria gonorrhoeae DNA probe NOT DETECTED NO T DETECTED Lab Report: Comp. Metabolic Panel, Thyro id Stimulating Hormone (L), Eryt ... - Chemistry sodium, serum 137 mmol/L 196-775 4783/05/27 carbon dioxide, venous blood 29.1 mmol/L 21.0-32 [...] 5.0-8.5 Encounters Code Encounter Date Provider Facility CPT-93197 Level 3 Est. Patient 11:29:55 CDT Checo Conklin MD [facility] CPT-60280 Level 4 Est. Patient 11:08:12 RECYCLING ATTENDANT Checo Conklin MD [facility] CPT-07754 Level 4 Est. Patient 16:06:48 RECYCLING ATTENDANT Checo Conklin MD [facility] CPT-52076 Level 3 Est. Patient 09:11:49 CDT Efren almendarez [facility] CPT-68505 Level 2 Est. Patient 19:53:27 CDT Tanner hill MD [facility] CPT-32537 Level 3 Est. Patient 09:15:34 CDT Efren almendarez [facility] CPT-03216 Level 3 Est. Patient 11:28:51 RECYCLING ATTENDANT Efren almendarez [facility] CPT-41258 Level 4 Est. Patient 13:55:46 RECYCLING ATTENDANT Checo Conklin MD [facility] CPT-43024 Level 4 Est. Patient 17:10:53 CDT Checo Conklin MD [facility] CPT-11161 Level 3 Est. Patient 15:56:22 CDT Checo Conklin MD [facility] CPT-36516 Level 3 Est. Patient 15:29:07 CDT Checo Conklin MD [facility] CPT-03090 Level 3 Est. Patient 14:38:41 CDT Checo Conklin MD [facility] CPT-53341 Level 3 Est. Patient 15:22:03 RECYCLING ATTENDANT Thomas reynolds DO [facility] CPT-80947 Level 3 Est. Patient 13:34:17 RECYCLING ATTENDANT Checo Conklin MD [facility] CPT-30508 Level 3 Est. Patient 12:29:32 CDT Dangelo arroyo MD [facility] CPT-36239 Level 3 Est. Patient 16:53:02 CDT Checo Conklin MD [facility] CPT-49788 Level 3 Est. Patient 16:37:13 CDT Checo Conklin MD [facility] CPT-16159 Level 3 Est. Patient 16:16:59 CDT Paul Hamlin MD [facility] CPT-29801 Level 3 Est. Patient 14:20:13 CDT Dangelo arroyo MD [facility] CPT-21899 Level 4 Est. Patient 11:29:33 CDT Checo Conklin MD [facility] CPT-39289 Level 3 Est. Patient 17:08:31 CDT Checo Conklin MD [facility] CPT-48712 Level 3 Est. Patient 16:50:42 RECYCLING ATTENDANT Checo Conklin MD [facility] CPT-06523 Level 4 Est. Patient 09:26:08 RECYCLING ATTENDANT Checo Conklin MD [facility] CPT-51914 Level 3 Est. Patient 11:37:10 CDT Checo Conklin MD [facility] CPT-15744 Level 4 Est. Patient 14:07:38 CDT Checo Conklin MD [facility] CPT-83185 Level 3 Est. Patient 09:54:41 CDT Checo Conklin MD [facility] CPT-69945 Level 3 Est. Patient 11:10:54 CDT Paul Hamlin MD [facility] CPT-61875 Level 3 Est. Patient 14:16:56 RECYCLING ATTENDANT Checo Conklin MD [facility] CPT-90179 Level 3 Est. Patient 11:04:11 RECYCLING ATTENDANT Checo Conklin MD [facility] CPT-09453 Level 3 Est. Patient 17:09:26 CDT Dangelo arroyo MD [facility] CPT-56925 Level 3 Est. Patient 16:54:37 CDT Checo Conklin MD [facility] Procedures Code Procedure Name Date Entry Date Standard Desc ription CPT-71608 UA w micro - LAB USE ONLY 17:06:46 CDT 2015 CPT-11223 [facility]CG Qual - LAB USE ONLY 17:06:46 CDT 05/06 CPT-44160 CMP - LAB USE ONLY 17:06:46 CDT CPT-45965 CBC with Diff - LAB USE ONLY 17:06:45 CDT 2 CPT-44175 Venipuncture Draw Fee 17:06:45 CDT CPT-LR Lesion Removal 19:53:27 CDT CPT-OV Office Visit 11:31:28 CDT CPT-85743 Tubersol 09:39:29 CDT CPT-J2550 Phenergan 25 mg (Promethazine) 13:59:02 RECYCLING ATTENDANT CPT-J1885 Toradol 60 mg (Ketorolac) 13:59:02 RECYCLING 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
--- OUTSIDE RECORDS SUMMARY | 2019-09-29 02:23 | XMS REPORT | Clinical Summary ---
Author Author Admin, Bethany Gonzales Organization [employer] Address Unknown Phone Unavailable Allergies, Adverse Reactions, [...] MD Urinary frequency Sinusitis, acute 461.9 Resolved hCeco Conklin MD Acute sinusitis, unspecified FH BREAST [...] Conklin MD Insect bite ICD-919.4 Inactive Checo Coknlin MD Carbuncle/furuncle NOS ICD-680.9 Inactive Hilaria Conklin [...] TABS 1.5 po qd PAROX ETINE HCL 44067826198 Active Checo Conklin MD Active FLUTICASONE PROPIONATE 50 MCG/ACT NASAL SUSP 2 sprays/ nostril qd PRN Congestion/Allergies FLUTICASONE PROPIONATE 8953761597 5 No Longer Active Checo Conklin MD Active AMOXICILLIN 500 MG ORAL CAPS 2 po BID x 10 days 09/12 AMOXICILLIN 86174338323 No Longer Active Checo Conklin MD Activ e MIRALAX ORAL POWD 8.5 to 17g po qd PRN Constipation POLYETHYLENE GLYCOL 3350 50107753705 Active Checo Conklin MD Active CLARITIN 10 MG TAB 1 tablet by mouth daily as needed for allergi es LORATADINE 93663305094 No Longer Active Checo Conklin MD Active BACTRIM DS 800-160 MG TAB 1 tab by mouth twice daily 2 TRIMETHOPRIM-SULFAMETHOXAZOLE 54984787087 No Longer Active Tanner Carrillo MD Active DIFLUCAN 150 MG TAB 1 tablet by mouth qod FLUCO NAZOLE 95478843851 No Longer Active Efren Medel APRN Active AZITHROMYCIN 250 MG TABS 2 po qd x 1 day, then 1 po qd x 4 days AZITHROMYCIN 41118633873 No Longer Active Efren Medel APRN Active FLAGYL 500 MG TAB 1 tablet by mouth bid METRONI DAZOLE 56777387851 No Longer Active Checo Conklin MD Active FOCALIN XR 10 MG ORAL [id number] 1 po q a.m. DEX METHYLPHENIDATE HCL 82026148020 Active Checo Conklin MD Active MAGNESIUM CITRATE 1.745 GM/30ML ORAL SOLN 150ml po BID PRN C onstipation MAGNESIUM CITRATE 11342815824 No Longer Active Checo Conklin MD Active BACTROBAN 2 % CREAM Apply to affected area BID for up to 10 days MUPIROCIN CALCIUM 09429192021 No Longer Active Checo Conklin MD Active HYDROCODONE-ACETAMINOPHEN 5-325 MG TABS 1 tab by mouth every 6 hours as needed HYDROCODONE-ACETAMINOPHEN 10569435602 No Longer Activ e Checo Conklin MD Active IBUPROFEN 800 MG TABS 1 tab every 8 hours with food 20 31/03/21 IBUPROFEN 96033626991 No Longer Active Checo Conklin MD Activ e DIFLUCAN 150 MG TAB 1 tablet by mouth if needed, hold until symptoms start FLUCONAZOLE 62513937151 No Longer Active Checo Ortiz MD Active BACTRIM DS 800-160 MG TAB 1 tab by mouth twice daily 2 TRIMETHOPRIM-SULFAMETHOXAZOLE 45296606219 No Longer Active Corry leong LPN Active HYDROCODONE-ACETAMINOPHEN 5-325 MG TABS 0.5 to 1 tab b y mouth every 6 hours as needed HYDROCODONE-ACETAMINOPHEN 48356044706 No Longer Active Checo Conklin MD Active ONDANSETRON [address] one tablet on tongue and allow to dissolve every 6 hours as needed for vomitting ONDANSETRO N 90020292978 No Longer Active Checo Conklin MD Active COMPRO 25 MG RECTAL SUPP insert or apply one supposit ory rectally as directed every 12 hours as needed for nausea PROCHLORPERA ZINE 69953000754 No Longer Active Checo Conklin MD Active SUMATRIPTAN SUCCINATE 100 MG ORAL TABS Take one PRN for migrane SUMATRIPTAN SUCCINATE 57989889138 No Longer Active Checo Conklin MD Active TRAVEL SICKNESS 25 MG ORAL CHEW chew and swallow one t ablet every 6 hours as needed MECLIZINE HCL 68183491284 No Longer Active Joe Conklin MD Active BUPROPION HCL ER (SR) 100 MG ORAL [id number] take one t ablet by mouth one time daily for one week then take 1 two times daily BUPROPION HCL 04344885663 No Longer Active Checo Conklin MD Activ e TERBINAFINE HCL 250 MG ORAL TABS take one table PO one time abran y TERBINAFINE HCL 73887901082 No Longer Active Checo Conklin MD Active METOCLOPRAMIDE HCL 10 MG ORAL TABS take one PO tid PRN nausea 20 29/12/14 METOCLOPRAMIDE HCL 68709490887 No Longer Active Checo Conklin MD Active DICLOFENAC SODIUM 75 MG TBEC 1 tablet by mouth twice daily P RN Knee pain DICLOFENAC SODIUM 15297982092 No Longer Active Checo Conklin MD Active LAMISIL 250 MG TAB 1 po qd TERBINAFINE HCL 548 73009436 No Longer Active Checo Conklin MD Active REGLAN 10 MG TAB 1 po TID PRN Nausea METOCLOPRA MIDE HCL 38870438909 No Longer Active Checo Conklin MD Active CELEXA 20 MG TABS 1 tablet by mouth daily CITALOPRAM HYDROBROMIDE 02625956410 No Longer Active Checo Conklin MD Activ e AZITHROMYCIN 250 MG TABS 2 po qd x 1 day, then 1 po qd x 4 days AZITHROMYCIN 65772203346 No Longer Active Checo Conklin MD Active HYDROCODONE-ACETAMINOPHEN 5-325 MG TABS 1 po q 6hr PRN Pain 2013 HYDROCODONE-ACETAMINOPHEN 03807932443 No Longer Active Lenora Conklin MD Active PHENAZOPYRIDINE HCL 200 MG TABS take 1 tab po TID for bladder pa in PHENAZOPYRIDINE HCL 46356415872 No Longer Active Checo Joshua Active CIPRO 500 MG TAB 1 tablet by mouth twice daily CIPROFLOXACIN HCL 45210669473 No Longer Active Dangelo Rangel MD Active HYDROCODONE-ACETAMINOPHEN 5-325 MG TABS 1/2 to 1 po q 4 hour s prn cough HYDROCODONE-ACETAMINOPHEN 31625073232 No Longer Activ e Dangelo Rangel MD Active BACTRIM DS 800-160 MG TABS 1 po BID x 7 days 0 SULFAMETHOXAZOLE-TRIMETHOPRIM 10910619556 No Longer Active Checo Conklin MD Active PREDNISONE 20 MG TAB 2 tabs daily for 3 days, 1 t ab daily for 3 days, 1/2 tab daily for 2 days PREDNISONE 46924590674 No Longer Active Checo Conklin MD Active TRIAMCINOLONE ACETONIDE 0.1 % OINT Apply to affected a reas TID for up to 2 weeks TRIAMCINOLONE ACETONIDE 64255801448 No Longer A ctive Checo Conklin MD Active CEFDINIR 300 MG CAPS by mouth twice a day CEFDI JAZZY 84270674774 No Longer Active Dangelo Rangel MD Active BUPROPION HCL (SMOKING DETER) 150 MG [id number] 1 a day for 1 week then 1 twice a day BUPROPION HCL (SMOKING DETER) 21247445204 No Lo nger Active Checo Conklin MD Active SIMVASTATIN 20 MG TABS 1 po qd SIMVASTATIN 6521167878 5 Active Checo Conklin MD Active CHANTIX STARTING MONTH KARTHIK 0.5 MG X 11 & 1 MG X 42 TAB S 0.5mg daily for 3 days, then 0.5mg BID for 4 days, then 1mg BID VARENICLINE TARTRATE 63312136636 No Longer Active Checo Conklin MD Activ e XANAX 0.5 MG TABS 1 po BID PRN anxiety ALPRAZOLAM 50203914529 Active Checo Conklin MD Active CONCERTA 18 MG CR-TABS 1 po q a.m. METHYLPHENID ATE HCL 61540502240 No Longer Active Checo Conklin MD Active AMBIEN 5 MG TAB 1 po qHS PRN Insomnia ZOLPIDEM TARTRATE 73720623433 Active Checo Conklin MD Active TRAZODONE HCL 100 MG TAB 0.5 to 1 po qHS PRN Insomnia TRAZODONE HCL 83740527458 No Longer Active Checo Conklin MD Acti ve FIORICET 325-50-40 MG TAB 1 tablet by mouth four times daily as needed [id number] 81633130913 No Longer Active Checo Conklin MD Active PHENERGAN CREAM* 25mg applied to wrist q6hr PRN Nausea PHENERGAN CREAM* No Longer Active Checo Conklin MD A ctive FLONASE 50 MCG/ACT SUSP 1 spray each nostril am and hs FLUTICASONE PROPIONATE 97956346990 No Longer Active Checo Conklin MD Activ e ANTIPYRINE-BENZOCAINE 5.4-1.4 % SOLN 1-2 drops in affected ear BENZOCAINE-ANTIPYRINE 68425251389 No Longer Active Checo Conklin MD Active CEFDINIR 300 MG CAPS 1 po bid CEFDINIR 08934688 120 No Longer Active Checo Conklin MD Active PREDNISONE 20 MG TAB 2 tabs daily for 3 days, 1 t ab daily for 3 days, 1/2 tab daily for 2 days PREDNISONE 66418944596 No Longer Active Aracelis Conklin MD Active AZITHROMYCIN 250 MG TABS 2 po qd x 1 day, then 1 po qd x 4 days AZITHROMYCIN 05085731913 No Longer Active Checo Conklin MD Active PREDNISONE 20 MG TAB 2 tabs daily for 3 days, 1 t ab daily for 3 days, 1/2 tab daily for 2 days PREDNISONE 37696153020 No Longer Active Checo Conklin MD Active ZITHROMAX Z-KARTHIK 250 MG TABS 2 today, then 1 daily for 4 days 201 09/18/28 AZITHROMYCIN 60895164485 No Longer Active Paul Hamlin MD Active FOCALIN XR 10 MG [id number] 1 po q a.m. D EXMETHYLPHENIDATE HCL 96160324555 No Longer Active Paul Hamlin MD Activ e PERCOCET 10-325 MG TABS 1 tablet every 6 hours as needed for pain OXYCODONE-ACETAMINOPHEN 95865305565 No Longer Active Paul Hamlin MD Active LORTAB 5 5-500 MG TABS 1/2 to 1 tablet by mouth flaquito ry 4 hours as needed for pain HYDROCODONE-ACETAMINOPHEN 15165239510 No Longer Active Checo Conklin MD Active FOCALIN XR 15 MG [id number] 1 po q a.m. D EXMETHYLPHENIDATE HCL 99446717453 No Longer Active Checo Conklin MD Activ e ZOFRAN ODT 4 MG TBDP 1 po q6hr PRN Nausea ONDAN SETRON 20348158505 No Longer Active Checo Conklin MD Active PERCOCET 5-325 MG TABS 1 tablet by mouth every 6 hours as needed OXYCODONE-ACETAMINOPHEN 60575265385 No Longer Active Checo Conklin MD Active PYRIDIUM 200 MG TABS take 1 tab po TID prn urinary pain. 0 PHENAZOPYRIDINE HCL 35701954913 No Longer Active Checo Conklin MD Active FLUCONAZOLE 150 MG TABS take 1 tab po qday once 04/06 FLUCONAZOLE 30486894862 No Longer Active Dangelo Rangel MD Acti ve CIPRO 500 MG TAB 1 tablet by mouth twice daily CIPROFLOXACIN HCL 80258796747 No Longer Active Dangelo Rangel MD Active PHENERGAN CREAM* 25mg applied to wrist q6hr PRN Nausea PHENERGAN CREAM* Inactive AMOXICILLIN 500 MG ORAL CAPS 2 po BID x 10 days 09/12 AMOXICILLIN 500 MG ORAL CAPS 907019 AMOXICILLIN Inactive ANTIPYRINE-BENZOCAINE 5.4-1.4 % SOLN 1-2 drops in affected ear ANTIPYRINE-BENZOCAINE 5.4-1.4 % SOLN BENZOCAINE-ANTIPYRINE I nactive BACTRIM DS 800-160 MG TAB 1 tab by mouth twice daily 2 BACTRIM DS 800-160 MG TAB 356462 TRIMETHOPRIM-SULFAMETHOXAZOLE Inac tive BACTRIM DS 800-160 MG TABS 1 po BID x 7 days 0 BACTRIM DS 800-160 MG TABS 501113 SULFAMETHOXAZOLE-TRIMETHOPRIM Inactive BACTRIM DS 800-160 MG TAB 1 tab by mouth twice daily 2 BACTRIM DS 800-160 MG TAB 472468 TRIMETHOPRIM-SULFAMETHOXAZOLE Inac tive CIPRO 500 MG TAB 1 tablet by mouth twice daily CIPRO 500 MG TAB 327384 CIPROFLOXACIN HCL Inactive CIPRO 500 MG TAB 1 tablet by mouth twice daily CIPRO 500 MG TAB 838257 CIPROFLOXACIN HCL Inactive CLARITIN 10 MG TAB 1 tablet by mouth daily as needed for allergi es CLARITIN 10 MG TAB 724416 LORATADINE Inactive FIORICET 325-50-40 MG TAB 1 tablet by mouth four times daily as needed FIORICET 325-50-40 MG TAB ACETAMINOPHEN-C AFF-BUTALBITAL Inactive FLAGYL 500 MG TAB 1 tablet by mouth bid FLAGYL 500 MG TAB 565524 METRONIDAZOLE Inactive IBUPROFEN 800 MG TABS 1 tab every 8 hours with food 31/03/21 IBUPROFEN 800 MG TABS 183866 IBUPROFEN Inactive MAGNESIUM CITRATE 1.745 GM/30ML ORAL SOLN 150ml po BID PRN C onstipation MAGNESIUM CITRATE 1.745 GM/30ML ORAL SOLN 310561 0 MAGNESIUM CITRATE Inactive METOCLOPRAMIDE HCL 10 MG ORAL TABS take one PO tid PRN nausea 20 29/12/14 METOCLOPRAMIDE HCL 10 MG ORAL TABS 922404 METOCLOPRAMID E HCL Inactive PERCOCET 5-325 MG TABS 1 tablet by mouth every 6 hours as needed PERCOCET 5-325 MG TABS 8106311 OXYCODONE-ACETAMINOPHEN I nactive PHENAZOPYRIDINE HCL 200 MG TABS take 1 tab po TID for bladder pa in PHENAZOPYRIDINE HCL 200 MG TABS 8176541 PHENAZOPYRIDINE HCL Inactive PREDNISONE 20 MG TAB 2 tabs daily for 3 days, 1 t ab daily for 3 days, 1/2 tab daily for 2 days PREDNISONE 20 MG TAB 562072 PREDNISON E Inactive PREDNISONE 20 MG TAB 2 tabs daily for 3 days, 1 t ab daily for 3 days, 1/2 tab daily for 2 days PREDNISONE 20 MG TAB 756854 PREDNISON E Inactive PREDNISONE 20 MG TAB 2 tabs daily for 3 days, 1 t ab daily for 3 days, 1/2 tab daily for 2 days PREDNISONE 20 MG TAB 924406 PREDNISON E Inactive PYRIDIUM 200 MG TABS take 1 tab po TID prn urinary pain. 0 PYRIDIUM 200 MG TABS 3059168 PHENAZOPYRIDINE HCL Inactive REGLAN 10 MG TAB 1 po TID PRN Nausea REGLAN 10 MG TAB 084988 METOCLOPRAMIDE HCL Inactive TRAZODONE HCL 100 MG TAB 0.5 to 1 po qHS PRN Insomnia TRAZODONE HCL 100 MG TAB 272825 TRAZODONE HCL Inactive TRIAMCINOLONE ACETONIDE 0.1 % OINT Apply to affected a reas TID for up to 2 weeks TRIAMCINOLONE ACETONIDE 0.1 % OINT 237347 6 TRIAMCINOLONE ACETONIDE Inactive LORTAB 5 5-500 MG TABS 1/2 to 1 tablet by mouth flaquito ry 4 hours as needed for pain LORTAB 5 5-500 MG TABS HYDROCODONE-A CETAMINOPHEN Inactive TERBINAFINE HCL 250 MG ORAL TABS take one table PO one time abran y TERBINAFINE HCL 250 MG ORAL TABS 561021 TERBINAFINE HCL Inactive SUMATRIPTAN SUCCINATE 100 MG ORAL TABS Take one PRN for migrane SUMATRIPTAN SUCCINATE 100 MG ORAL TABS 166951 SUMATRIPT AN SUCCINATE Inactive DIFLUCAN 150 MG TAB 1 tablet by mouth if needed, hold until symptoms start DIFLUCAN 150 MG TAB 768424 FLUCONAZOLE Inactive DIFLUCAN 150 MG TAB 1 tablet by mouth qod DIFLUCAN 150 MG TAB 117591 FLUCONAZOLE Inactive FLUCONAZOLE 150 MG TABS take 1 tab po qday once 04/06 FLUCONAZOLE 150 MG TABS 470342 FLUCONAZOLE Inactive DICLOFENAC SODIUM 75 MG TBEC 1 tablet by mouth twice daily P RN Knee pain DICLOFENAC SODIUM 75 MG TBEC 353770 DICLOFENAC S ODIUM Inactive LAMISIL 250 MG TAB 1 po qd LAMISIL 250 MG TAB 386866 TERBINAFINE HCL Inactive AZITHROMYCIN 250 MG TABS 2 po qd x 1 day, then 1 po qd x 4 days AZITHROMYCIN 250 MG TABS 3082116 AZITHROMYCIN Inactiv e AZITHROMYCIN 250 MG TABS 2 po qd x 1 day, then 1 po qd x 4 days AZITHROMYCIN 250 MG TABS 7255160 AZITHROMYCIN Inactiv e AZITHROMYCIN 250 MG TABS 2 po qd x 1 day, then 1 po qd x 4 days AZITHROMYCIN 250 MG TABS 3762078 AZITHROMYCIN Inactiv e BACTROBAN 2 % CREAM Apply to affected area BID for up to 10 days BACTROBAN 2 % CREAM 368561 MUPIROCIN CALCIUM Inactive CEFDINIR 300 MG CAPS by mouth twice a day CEFDINIR 300 MG CAPS 719519 CEFDINIR Inactive CEFDINIR 300 MG CAPS 1 po bid CEFDINIR 300 MG CAPS 0346 CEFDINIR Inactive CELEXA 20 MG TABS 1 tablet by mouth daily CELEXA 20 MG TABS 917102 CITALOPRAM HYDROBROMIDE Inactive ZOFRAN ODT 4 MG TBDP 1 po q6hr PRN Nausea ZOFRAN ODT 4 MG TBDP 852768 ONDANSETRON Inactive ONDANSETRON [address] one tablet on tongue and allow to dissolve every 6 hours as needed for vomitting ON DANSETRON 8 MG ORAL TBDP 454396 ONDANSETRON Inactive CONCERTA 18 MG CR-TABS 1 po q a.m. CONCERTA 18 MG CR-TABS METHYLPHENIDATE HCL Inactive COMPRO 25 MG RECTAL SUPP insert or apply one supposit ory rectally as directed every 12 hours as needed for nausea COMP RO 25 MG RECTAL SUPP 564031 PROCHLORPERAZINE Inactive ZITHROMAX Z-KARTHIK 250 MG TABS 2 today, then 1 daily for 4 days 201 09/18/28 ZITHROMAX Z-KARTHIK 250 MG TABS 4186923 AZITHROMYCIN Inac tive FLONASE 50 MCG/ACT SUSP 1 spray each nostril am and hs FLONASE 50 MCG/ACT SUSP FLUTICASONE PROPIONATE Inactive PERCOCET 10-325 MG TABS 1 tablet every 6 hours as needed for pain PERCOCET 10-325 MG TABS 6346229 OXYCODONE-ACETAMINOPHEN Inactive HYDROCODONE-ACETAMINOPHEN 5-325 MG TABS 1 po q 6hr PRN Pain 2013 HYDROCODONE-ACETAMINOPHEN 5-325 MG TABS 918787 HYDROCODONE-ACETAMINOPHEN Inactive HYDROCODONE-ACETAMINOPHEN 5-325 MG TABS 0.5 to 1 tab b y mouth every 6 hours as needed HYDROCODONE-ACETAMINOPHEN 5-325 MG TABS 8 64725 HYDROCODONE-ACETAMINOPHEN Inactive HYDROCODONE-ACETAMINOPHEN 5-325 MG TABS 1 tab by mouth every 6 hours as needed HYDROCODONE-ACETAMINOPHEN 5-325 MG TABS 685012 HYDROCODONE-ACETAMINOPHEN Inactive HYDROCODONE-ACETAMINOPHEN 5-325 MG TABS 1/2 to 1 po q 4 hour s prn cough HYDROCODONE-ACETAMINOPHEN 5-325 MG TABS 142955 HYDROCODONE-ACETAMINOPHEN Inactive BUPROPION HCL ER (SR) 100 MG ORAL [id number] take one t ablet by mouth one time daily for one week then take 1 two times daily BUPROPION HCL ER (SR) 100 MG ORAL [id number] BUPROPION HCL Inacti ve FOCALIN XR 10 MG [id number] 1 po q a.m. F OCALIN XR 10 MG [id number] DEXMETHYLPHENIDATE HCL Inactive FLUTICASONE PROPIONATE 50 MCG/ACT NASAL SUSP 2 sprays/ nostril qd PRN Congestion/Allergies FLUTICASONE PROPION ATE 50 MCG/ACT NASAL SUSP 0936434 FLUTICASONE PROPIONATE Inactive FOCALIN XR 15 MG [id number] 1 po q a.m. F OCALIN XR 15 MG [id number] DEXMETHYLPHENIDATE HCL Inactive TRAVEL SICKNESS 25 MG ORAL CHEW chew and swallow one t ablet every 6 hours as needed TRAVEL SICKNESS 25 MG ORAL CHEW 404832 MECLIZINE HCL Inactive CHANTIX STARTING MONTH KARTHIK [...] Report: CBC W/DIFF, Comp. Metabolic Panel, Qual [facility] - Chemistry sodium, serum 139 mmol/L 983-110 8950/10/21 carbon dioxide, venous blood 33.5 mmol/L 21.0-32 [...] Report: CBC W/DIFF, Comp. Metabolic Panel, Qual [facility] - Hematology leukocyte count, blood 7.9 10^3/MM^3 [...] PANEL - Chemistry cholesterol, serum 192 mg/dL 780-763 6910/02/20 HDL cholesterol, serum 31 mg/dL > OR [...] 11 .0-15.0 platelet count 218 THOUSAND/UL 10*3/mm3 914-353 5022/02/20 mean platelet volume 9.7 fL 7.5-12.5 Lab Report: Chlamydia/GC APTIMA/[id number] - Lab chlamydia DNA probe NOT DETECTED NOT DETECTED Lab Report: Chlamydia/GC APTIMA/[id number] - Microbiology Neisseria gonorrhoeae DNA probe NOT DETECTED NO T DETECTED Lab Report: Comp. Metabolic Panel, Thyro id Stimulating Hormone (L), Eryt ... - Chemistry sodium, serum 137 mmol/L 123-819 3949/05/27 carbon dioxide, venous blood 29.1 mmol/L 21.0-32 [...] 5.0-8.5 Encounters Code Encounter Date Provider Facility CPT-79463 Level 3 Est. Patient 11:29:55 CDT Checo Conklin MD [facility] CPT-13880 Level 4 Est. Patient 11:08:12 IMMIGRATION SPECIALIST Checo Conklin MD [facility] CPT-50212 Level 4 Est. Patient 16:06:48 IMMIGRATION SPECIALIST Checo Conklin MD [facility] CPT-36724 Level 3 Est. Patient 09:11:49 CDT Efren almendarez [facility] CPT-84425 Level 2 Est. Patient 19:53:27 CDT Tanner hill MD [facility] CPT-92097 Level 3 Est. Patient 09:15:34 CDT Efren almendarez [facility] CPT-87191 Level 3 Est. Patient 11:28:51 IMMIGRATION SPECIALIST Efren almendarez [facility] CPT-06734 Level 4 Est. Patient 13:55:46 IMMIGRATION SPECIALIST Checo Conklin MD [facility] CPT-89460 Level 4 Est. Patient 17:10:53 CDT Checo Conklin MD [facility] CPT-37618 Level 3 Est. Patient 15:56:22 CDT Checo Conklin MD [facility] CPT-18198 Level 3 Est. Patient 15:29:07 CDT Checo Conklin MD [facility] CPT-84843 Level 3 Est. Patient 14:38:41 CDT Checo Conklin MD [facility] CPT-32907 Level 3 Est. Patient 15:22:03 IMMIGRATION SPECIALIST Thomas reynolds DO [facility] CPT-79909 Level 3 Est. Patient 13:34:17 IMMIGRATION SPECIALIST Checo Conklin MD [facility] CPT-20924 Level 3 Est. Patient 12:29:32 CDT Dangelo arroyo MD [facility] CPT-92147 Level 3 Est. Patient 16:53:02 CDT Checo Conklin MD [facility] CPT-39754 Level 3 Est. Patient 16:37:13 CDT Checo Conklin MD [facility] CPT-08911 Level 3 Est. Patient 16:16:59 CDT Paul Hamlin MD [facility] CPT-15617 Level 3 Est. Patient 14:20:13 CDT Dangelo arroyo MD [facility] CPT-75356 Level 4 Est. Patient 11:29:33 CDT Checo Conklin MD [facility] CPT-54119 Level 3 Est. Patient 17:08:31 CDT Checo Conklin MD [facility] CPT-20522 Level 3 Est. Patient 16:50:42 IMMIGRATION SPECIALIST Checo Conklin MD [facility] CPT-60468 Level 4 Est. Patient 09:26:08 IMMIGRATION SPECIALIST Checo Conklin MD [facility] CPT-32551 Level 3 Est. Patient 11:37:10 CDT Checo Conklin MD [facility] CPT-68301 Level 4 Est. Patient 14:07:38 CDT Checo Conklin MD [facility] CPT-31041 Level 3 Est. Patient 09:54:41 CDT Checo Conklin MD [facility] CPT-83442 Level 3 Est. Patient 11:10:54 CDT Paul Hamlin MD [facility] CPT-97796 Level 3 Est. Patient 14:16:56 IMMIGRATION SPECIALIST Checo Conklin MD [facility] CPT-99910 Level 3 Est. Patient 11:04:11 IMMIGRATION SPECIALIST Checo Conklin MD [facility] CPT-78949 Level 3 Est. Patient 17:09:26 CDT Dangelo arroyo MD [facility] CPT-80096 Level 3 Est. Patient 16:54:37 CDT Checo Conklin MD [facility] Procedures Code Procedure Name Date Entry Date Standard Desc ription CPT-50839 UA w micro - LAB USE ONLY 17:06:46 CDT 2015 CPT-07283 [facility] Qual - LAB USE ONLY 17:06:46 CDT 05/06 CPT-53461 CMP - LAB USE ONLY 17:06:46 CDT CPT-70277 CBC with Diff - LAB USE ONLY 17:06:45 CDT 2 CPT-73363 Venipuncture Draw Fee 17:06:45 CDT CPT-LR Lesion Removal 19:53:27 CDT CPT-OV Office Visit 11:31:28 CDT CPT-36239 Tubersol 09:39:29 CDT CPT-J2550 Phenergan 25 mg (Promethazine) 13:59:02 IMMIGRATION SPECIALIST CPT-J1885 Toradol 60 mg (Ketorolac) 13:59:02 IMMIGRATION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
--- OUTSIDE RECORDS SUMMARY | 2019-09-29 02:23 | XMS REPORT | Clinical Summary ---
Author Author Admin, Bethany Ayala [employer] [facility] Address Unknown Phone Unavailable Allergies, Adverse [...] MD 201 08/27/26 CONCUSSION ICD-850.9 Inactive Checo Jsohua UTI ICD-599.0 Inactive Checo Conklin MD 2013 [...] hours as needed for p ain IBUPROFEN [id number] Active Dangelo Rangel MD Acti ve PAROXETINE HCL 40 MG ORAL TABLET 1 po qd PAR OXETINE HCL 84289153357 Active Checo Conklin MD Active MIRALAX ORAL POWDER 8.5 to 17g po qd PRN Constipation POLYETHYLENE GLYCOL 3350 61069591786 No Longer Active Checo Conklin MD Active PROTONIX 40 MG ORAL TABLET DELAYED RELEASE 1 pill by [facility] daily, for acid reflux PANTOPRAZOLE SODIUM 25056477760 No Longer Activ e Corry Méndez LPN Active FLAGYL 500 MG ORAL TABLET 1 tablet by mouth bid 08/29 METRONIDAZOLE 33586302810 No Longer Active Corry Méndez LPN Active CLARITHROMYCIN 500 MG ORAL TABLET 1 tab po BID x 14 days CLARITHROMYCIN 15733892900 No Longer Active Corry Méndez LPN Active AMOXICILLIN 500 MG ORAL CAPSULE 2 po BID x 14 days for H. Pylori AMOXICILLIN 68601805979 No Longer Active Corry Méndez LPN Active FLUTICASONE PROPIONATE 50 MCG/ACT NASAL SUSPENSION 2 s prays/nostril qd PRN Congestion/Allergies FLUTICASONE PROPIONATE 5406544560 9 No Longer Active Checo Conklin MD Active AMOXICILLIN 500 MG ORAL CAPSULE 2 po BID x 10 days 201 01/15/27 AMOXICILLIN 32783686957 No Longer Active Checo Conklin MD Activ e CLARITIN 10 MG ORAL TABLET 1 tablet by mouth daily as needed for allergies LORATADINE 78421262720 No Longer Active Checo Ortiz MD Active BACTRIM DS 800-160 MG ORAL TABLET 1 tab by mouth twice daily 201 12/19/26 TRIMETHOPRIM-SULFAMETHOXAZOLE 51345719763 No Longer Active Ragini Carrillo MD Active DIFLUCAN 150 MG ORAL TABLET 1 tablet by mouth qod 2015 FLUCONAZOLE 48097657169 No Longer Active Efren Medel WEIGHT ENGINEER Act mike AZITHROMYCIN 250 MG ORAL TABLET 2 po qd x 1 day, then 1 po q d x 4 days AZITHROMYCIN 40697534526 No Longer Active Efren flores WEIGHT ENGINEER Active FLAGYL 500 MG ORAL TABLET 1 tablet by mouth bid 04/13 METRONIDAZOLE 54861921603 No Longer Active Checo Conklin MD Acti ve FOCALIN XR 10 MG ORAL CAPSULE EXTENDED RELEASE 24 HOUR 1 po q a.m. DEXMETHYLPHENIDATE HCL 81810731043 Active Checo Conklin MD Active MAGNESIUM CITRATE 1.745 GM/30ML ORAL SOLUTION 150ml po BID P RN Constipation MAGNESIUM CITRATE 56074753313 No Longer Active Checo Conklin MD Active BACTROBAN 2 % EXTERNAL CREAM Apply to affected area BID for up to 10 days MUPIROCIN CALCIUM 29417482998 No Longer Active Checo Conklin MD Active HYDROCODONE-ACETAMINOPHEN 5-325 MG ORAL TABLET 1 tab b y mouth every 6 hours as needed HYDROCODONE-ACETAMINOPHEN 14534502239 No Longer Active Checo Conklin MD Active IBUPROFEN 800 MG ORAL TABLET 1 tab every 8 hours with food 03/20 IBUPROFEN 58140937028 No Longer Active Checo Conklin MD Active DIFLUCAN 150 MG ORAL TABLET 1 tablet by mouth if neede d, hold until symptoms start FLUCONAZOLE 82702592573 No Longer Active Checo Conklin MD Active BACTRIM DS 800-160 MG ORAL TABLET 1 tab by mouth twice daily 201 11/23/03 TRIMETHOPRIM-SULFAMETHOXAZOLE 24144709784 No Longer Active K bernice Méndez, RAW STOCK MACHINE LOADER Active HYDROCODONE-ACETAMINOPHEN 5-325 MG ORAL TABLET 0.5 to 1 tab by mouth every 6 hours as needed HYDROCODONE-ACETAMINOPHEN 41732210187 No Longer Active Checo Conklin MD Active ONDANSETRON 8 MG ORAL TABLET DISINTEGRATING place one tablet on tongue and allow to dissolve every 6 hours as needed for vomitting ONDANSETRON 50321055302 No Longer Active Checo Conklin MD Activ e COMPRO 25 MG RECTAL SUPPOSITORY insert or apply one garza ppository rectally as directed every 12 hours as needed for nausea PROCHLORPERAZINE 98742845521 No Longer Active Checo Conklin MD A ctive SUMATRIPTAN SUCCINATE 100 MG ORAL TABLET Take one PRN for migran e SUMATRIPTAN SUCCINATE 06019793187 No Longer Active Checo Conklin MD Active TRAVEL SICKNESS 25 MG ORAL TABLET CHEWABLE chew and sw allow one tablet every 6 hours as needed MECLIZINE HCL 26606560559 No Longer A ctive Checo Conklin MD Active BUPROPION HCL ER (SR) 100 MG ORAL TABLET EXTENDED RELE ASE 12 HOUR take one tablet by mouth one time daily for one week then take 1 two times daily BUPROPION HCL 79677449667 No Longer Active Checo gallagher MD Active TERBINAFINE HCL 250 MG ORAL TABLET take one table PO one time da moises TERBINAFINE HCL 91981494600 No Longer Active Checo Conklin MD Active METOCLOPRAMIDE HCL 10 MG ORAL TABLET take one PO tid PRN nausea METOCLOPRAMIDE HCL 05473450193 No Longer Active Checo Conklin MD Active DICLOFENAC SODIUM 75 MG ORAL TABLET DELAYED RELEASE 1 tablet by mouth twice daily PRN Knee pain DICLOFENAC SODIUM 38324438010 No Longer Active Checo Conklin MD Active LAMISIL 250 MG ORAL TABLET 1 po qd TERBINAFI NE HCL 23304443078 No Longer Active Checo Conklin MD Active REGLAN 10 MG ORAL TABLET 1 po TID PRN Nausea 3 METOCLOPRAMIDE HCL 74807096039 No Longer Active Checo Conklin MD Active CELEXA 20 MG ORAL TABLET 1 tablet by mouth daily 09/26 CITALOPRAM HYDROBROMIDE 58369584269 No Longer Active Checo Conklin MD Active AZITHROMYCIN 250 MG ORAL TABLET 2 po qd x 1 day, then 1 po q d x 4 days AZITHROMYCIN 30565495157 No Longer Active Checo Ortiz MD Active HYDROCODONE-ACETAMINOPHEN 5-325 MG ORAL TABLET 1 po q 6hr PRN Pa in HYDROCODONE-ACETAMINOPHEN 80761426957 No Longer Active Lenora Conklin MD Active PHENAZOPYRIDINE HCL 200 MG ORAL TABLET take 1 tab po TID for bladder pain PHENAZOPYRIDINE HCL 47980615642 No Longer Active Joe Conklin MD Active CIPRO 500 MG ORAL TABLET 1 tablet by mouth twice daily CIPROFLOXACIN HCL 53801028188 No Longer Active Dangelo Rangel MD Active HYDROCODONE-ACETAMINOPHEN 5-325 MG ORAL TABLET 1/2 to 1 po q 4 hours prn cough HYDROCODONE-ACETAMINOPHEN 07709767864 No Longer Activ e Dangelo Rangel MD Active BACTRIM DS 800-160 MG ORAL TABLET 1 po BID x 7 days 29/04/10 SULFAMETHOXAZOLE-TRIMETHOPRIM 45867838419 No Longer Active Checo Conklin MD Active PREDNISONE 20 MG ORAL TABLET 2 tabs daily for 3 days, 1 tab daily for 3 days, 1/2 tab daily for 2 days PREDNISONE 23813170507 No Longer Active Checo Conklin MD Active TRIAMCINOLONE ACETONIDE 0.1 % EXTERNAL OINTMENT Apply to affected areas TID for up to 2 weeks TRIAMCINOLONE ACETONIDE 27910522262 No Longer Active Checo Conklin MD Active CEFDINIR 300 MG ORAL CAPSULE by mouth twice a day 2013 CEFDINIR 73631887702 No Longer Active Dangelo Rangel MD Acti ve BUPROPION HCL ER (SMOKING DET) 150 MG ORAL TABLET EXTE NDED RELEASE 12 HOUR 1 a day for 1 week then 1 twice a day BUPROPION HCL (SMOKING DETER) 91154877549 No Longer Active Checo Conklin MD Active SIMVASTATIN 20 MG ORAL TABLET 1 po qd SIMVASTAT IN 62259447475 Active Checo Conklin MD Active CHANTIX STARTING MONTH KARTHIK 0.5 MG X 11 & 1 MG X 42 ORA L TABLET 0.5mg daily for 3 days, then 0.5mg BID for 4 days, then 1mg BID VARENICLINE TARTRATE 48060998194 No Longer Active Checo Conklin MD Activ e XANAX 0.5 MG ORAL TABLET 1 po BID PRN anxiety A LPRAZOLAM 49882327034 Active Checo Conklin MD Active CONCERTA 18 MG ORAL TABLET EXTENDED RELEASE 1 po q a.m. METHYLPHENIDATE HCL 00269847983 No Longer Active Checo Conklin MD Active AMBIEN 5 MG ORAL TABLET 1 po qHS PRN Insomnia Z OLPIDEM TARTRATE 51755554627 Active Checo Conklin MD Active TRAZODONE HCL 100 MG ORAL TABLET 0.5 to 1 po qHS PRN Insomnia 20 30/07/08 TRAZODONE HCL 55067647029 No Longer Active Checo Conklin MD Active FIORICET 325-50-40 MG TAB 1 tablet by mouth four times daily as needed IMILETIFYOYIS-[id number] 44330962683 No Longer Active Checo Conklin MD Active PHENERGAN CREAM* 25mg applied to wrist q6hr PRN Nausea PHENERGAN CREAM* No Longer Active Checo Gonzales ctive FLONASE 50 MCG/ACT NASAL SUSPENSION 1 spray each nostril am and hs FLUTICASONE PROPIONATE 31789738231 No Longer Active Checo Conklin MD Active ANTIPYRINE-BENZOCAINE 5.4-1.4 % OTIC SOLUTION 1-2 drops in affec yohannes ear BENZOCAINE-ANTIPYRINE 71258029305 No Longer Active Checo Conklin MD Active CEFDINIR 300 MG ORAL CAPSULE 1 po bid CEFDINIR 11500612685 No Longer Active Checo Conklin MD Active PREDNISONE 20 MG ORAL TABLET 2 tabs daily for 3 days, 1 tab daily for 3 days, 1/2 tab daily for 2 days PREDNISONE 09509436720 No Longer Active Checo Conklin MD Active AZITHROMYCIN 250 MG ORAL TABLET 2 po qd x 1 day, then 1 po q d x 4 days AZITHROMYCIN 77315927383 No Longer Active Checo Ortiz MD Active PREDNISONE 20 MG ORAL TABLET 2 tabs daily for 3 days, 1 tab daily for 3 days, 1/2 tab daily for 2 days PREDNISONE 35488183124 No Longer Active Checo Conklin MD Active ZITHROMAX Z-KARTHIK 250 MG ORAL TABLET 2 today, then 1 daily for 4 d ays AZITHROMYCIN 22789661448 No Longer Active Paul Hamlin MD Active FOCALIN XR 10 MG ORAL CAPSULE EXTENDED RELEASE 24 HOUR 1 po q a. m. DEXMETHYLPHENIDATE HCL 03420987686 No Longer Active Paul Hamlin MD Active PERCOCET 10-325 MG ORAL TABLET 1 tablet every 6 hours as needed for pain OXYCODONE-ACETAMINOPHEN 75361760342 No Longer Active Paul Hamlin MD Active LORTAB 5-500 MG ORAL TABLET 1/2 to 1 tablet by mouth e very 4 hours as needed for pain HYDROCODONE-ACETAMINOPHEN 11038217227 No Longer Active Checo Conklin MD Active FOCALIN XR 15 MG ORAL CAPSULE EXTENDED RELEASE 24 HOUR 1 po q a. m. DEXMETHYLPHENIDATE HCL 03965654733 No Longer Active Checo Conklin MD Active ZOFRAN ODT 4 MG ORAL TABLET DISINTEGRATING 1 po q6hr PRN Nausea ONDANSETRON 69746589720 No Longer Active Checo Conklin MD Active PERCOCET 5-325 MG ORAL TABLET 1 tablet by mouth every 6 hour s as needed OXYCODONE-ACETAMINOPHEN 90900724545 No Longer Active Checo Conklin MD Active PYRIDIUM 200 MG ORAL TABLET take 1 tab po TID prn urinary pain. PHENAZOPYRIDINE HCL 46166796562 No Longer Active Checo Joshua Active FLUCONAZOLE 150 MG ORAL TABLET take 1 tab po qday once FLUCONAZOLE 83187185731 No Longer Active Dangelo Rangel MD Acti ve CIPRO 500 MG ORAL TABLET 1 tablet by mouth twice daily CIPROFLOXACIN HCL 48341083984 No Longer Active Dangelo Rangel MD Active PYRIDIUM 200 MG ORAL TABLET take 1 tab po TID prn urinary pain. PYRIDIUM 200 MG ORAL TABLET 3639613 PHENAZOPYRIDINE HCL Inactive PERCOCET 5-325 MG ORAL TABLET 1 tablet by mouth every 6 hour s as needed PERCOCET 5-325 MG ORAL TABLET 0711067 OXYCODONE-ACETAMINOPHEN Inactive ZOFRAN ODT 4 MG ORAL TABLET DISINTEGRATING 1 po q6hr PRN Nausea ZOFRAN ODT 4 MG ORAL TABLET DISINTEGRATING 498515 ONDAN SETRON Inactive FOCALIN XR 15 MG [...] for pain PERCOCET 10-325 MG ORAL TABLET 7998722 OXYCODONE-ACETAMI NOPHEN Inactive FOCALIN XR 10 MG ORAL CAPSULE EXTENDED RELEASE 24 HOUR 1 po q a. m. FOCALIN XR 10 MG ORAL CAPSULE EXTENDED RELEASE 24 HOUR DEXMETHYLPHENIDATE HCL Inactive CEFDINIR 300 MG ORAL CAPSULE 1 po bid CEFDINI R 300 MG ORAL CAPSULE 479644 CEFDINIR Inactive ANTIPYRINE-BENZOCAINE 5.4-1.4 % OTIC SOLUTION 1-2 drops in affec yohannes ear ANTIPYRINE-BENZOCAINE 5.4-1.4 % OTIC SOLUTION BENZOCAINE-ANTIPYRINE Inactive FLONASE 50 MCG/ACT NASAL SUSPENSION 1 spray each nostril am and hs FLONASE 50 MCG/ACT NASAL SUSPENSION 3714494 FLUTICASONE PROPIONATE I nactive PHENERGAN CREAM* 25mg applied to wrist q6hr PRN Nausea PHENERGAN CREAM* Inactive FIORICET 325-50-40 MG TAB 1 tablet by mouth four times daily as needed FIORICET 325-50-40 MG TAB ACETAMINOPHEN-C AFF-BUTALBITAL Inactive TRAZODONE HCL 100 MG ORAL TABLET 0.5 to 1 po qHS PRN Insomnia 20 30/07/08 TRAZODONE HCL 100 MG ORAL TABLET 752651 TRAZODONE HCL Inactive CONCERTA 18 MG ORAL [...] cough HYDROCODONE-ACETAMINOPHEN 5-325 MG ORAL TABLET 8 22229 HYDROCODONE-ACETAMINOPHEN Inactive PHENAZOPYRIDINE HCL 200 MG ORAL TABLET take 1 tab po TID for bladder pain PHENAZOPYRIDINE HCL 200 MG ORAL TABLET 0301441 PHENAZOPYRIDINE HCL Inactive HYDROCODONE-ACETAMINOPHEN 5-325 MG ORAL TABLET 1 po q 6hr PRN Pa in HYDROCODONE-ACETAMINOPHEN 5-325 MG ORAL TABLET 963620 HYDROCODONE-ACETAMINOPHEN Inactive CELEXA 20 MG ORAL TABLET 1 tablet by mouth daily 09/26 CELEXA 20 MG ORAL TABLET 648085 CITALOPRAM HYDROBROMIDE Inactive REGLAN 10 MG ORAL TABLET 1 po TID PRN Nausea 3 REGLAN 10 MG ORAL TABLET 444204 METOCLOPRAMIDE HCL Inactive LAMISIL 250 MG ORAL TABLET 1 po qd L AMISIL 250 MG ORAL TABLET 070583 TERBINAFINE HCL Inactive DICLOFENAC SODIUM 75 MG ORAL TABLET DELAYED RELEASE 1 tablet by mouth twice daily PRN Knee pain DICLOFENAC SODIUM 75 MG ORAL TABLET DELAYED RELEASE 767809 DICLOFENAC SODIUM Inactive METOCLOPRAMIDE HCL 10 MG ORAL TABLET take one PO tid PRN nausea METOCLOPRAMIDE HCL 10 MG ORAL TABLET 487834 METOCLOPRAM ZACH HCL Inactive TERBINAFINE HCL 250 MG ORAL TABLET take one table PO one time da moises TERBINAFINE HCL 250 MG ORAL TABLET 806107 TERBINAFINE H CL Inactive BUPROPION HCL ER [...] SICKNESS 25 M G ORAL TABLET CHEWABLE 745134 MECLIZINE HCL Inactive SUMATRIPTAN SUCCINATE 100 MG ORAL TABLET Take one PRN for migran e SUMATRIPTAN SUCCINATE 100 MG ORAL TABLET 016798 SUMATRIPTAN SUCCINATE Inactive COMPRO 25 MG RECTAL SUPPOSITORY insert or apply one garza ppository rectally as directed every 12 hours as needed for nausea COMPRO 25 MG RECTAL SUPPOSITORY 680288 PROCHLORPERAZINE Inactive ONDANSETRON 8 MG ORAL TABLET DISINTEGRATING place one tablet on tongue and allow to dissolve every 6 hours as needed for vomitting ONDANSETRON 8 MG ORAL TABLET DISINTEGRATING 117782 ONDANSETRON Inactive HYDROCODONE-ACETAMINOPHEN 5-325 MG ORAL TABLET 0.5 to 1 tab by mouth every 6 hours as needed HYDROCODONE-ACETAMIN OPHEN 5-325 MG ORAL TABLET 159806 HYDROCODONE-ACETAMINOPHEN Inactive BACTRIM DS 800-160 MG ORAL TABLET 1 tab by mouth twice daily 201 11/23/03 BACTRIM DS 800-160 MG ORAL TABLET 19820918 TRIMETHOPRIM-SULFAMETHOXAZOLE Inactive DIFLUCAN 150 MG ORAL TABLET 1 tablet by mouth if neede d, hold until symptoms start DIFLUCAN 150 MG ORAL TABLET 653162 FLUCONAZ OLE Inactive IBUPROFEN 800 MG ORAL TABLET 1 tab every 8 hours with food 03/20 IBUPROFEN 800 MG ORAL TABLET 814781 IBUPROFEN Foster ctive HYDROCODONE-ACETAMINOPHEN 5-325 MG ORAL TABLET 1 tab b y mouth every 6 hours as needed HYDROCODONE-ACETAMINOPHEN 5-325 MG ORAL TABLET 399790 HYDROCODONE-ACETAMINOPHEN Inactive BACTROBAN 2 % EXTERNAL CREAM Apply to affected area BID for up to 10 days BACTROBAN 2 % EXTERNAL CREAM 215205 MUPIROCIN CA LCIUM Inactive MAGNESIUM CITRATE 1.745 GM/30ML ORAL SOLUTION 150ml po BID P RN Constipation MAGNESIUM CITRATE 1.745 GM/30ML ORAL SOLUTION 10 81110 MAGNESIUM CITRATE Inactive DIFLUCAN 150 MG ORAL TABLET 1 tablet by mouth qod 2015 DIFLUCAN 150 MG ORAL TABLET 096135 FLUCONAZOLE Inactive BACTRIM DS 800-160 MG ORAL TABLET 1 tab by mouth twice daily 201 12/19/26 BACTRIM DS 800-160 MG ORAL TABLET 810477 TRIMETHOPRIM-SULFAMETHOXAZOLE Inactive CLARITIN 10 MG ORAL TABLET 1 tablet by mouth daily as needed for allergies CLARITIN 10 MG ORAL TABLET 090081 LORATADINE I nactive FLUTICASONE PROPIONATE 50 MCG/ACT NASAL SUSPENSION 2 s prays/nostril qd PRN Congestion/Allergies FLUTICASONE PROPION ATE 50 MCG/ACT NASAL SUSPENSION 4408271 FLUTICASONE PROPIONATE Inactive MIRALAX ORAL POWDER 8.5 to 17g po qd PRN Constipation MIRALAX ORAL POWDER 940332 POLYETHYLENE GLYCOL 3350 Inactive CIPRO 500 MG ORAL TABLET 1 tablet by mouth twice daily CIPRO 500 MG ORAL TABLET 687816 CIPROFLOXACIN HCL Inactive FLUCONAZOLE 150 MG ORAL TABLET take 1 tab po qday once FLUCONAZOLE 150 MG ORAL TABLET 528135 FLUCONAZOLE Inactive ZITHROMAX Z-KARTHIK 250 MG ORAL TABLET 2 today, then 1 daily for 4 d ays ZITHROMAX Z-KARTHIK 250 MG ORAL TABLET 810457 AZITHROMYCIN Inactive PREDNISONE 20 MG ORAL TABLET 2 tabs daily for 3 days, 1 tab daily for 3 days, 1/2 tab daily for 2 days PREDNISONE 20 MG ORAL T ABLET 160354 PREDNISONE Inactive AZITHROMYCIN 250 MG ORAL TABLET 2 po qd x 1 day, then 1 po q d x 4 days AZITHROMYCIN 250 MG ORAL TABLET 702179 AZITHROMY SPARKLE Inactive PREDNISONE 20 MG ORAL TABLET 2 tabs daily for 3 days, 1 tab daily for 3 days, 1/2 tab daily for 2 days PREDNISONE 20 MG ORAL TABLET 502680 PREDNISONE Inactive CEFDINIR 300 MG ORAL CAPSULE by mouth twice a day 2013 CEFDINIR 300 MG ORAL CAPSULE 468030 CEFDINIR Inactive TRIAMCINOLONE ACETONIDE 0.1 % EXTERNAL OINTMENT Apply to affected areas TID for up to 2 weeks TRIAMCINOLONE ACETON ZACH 0.1 % EXTERNAL OINTMENT 4850208 TRIAMCINOLONE ACETONIDE Inactive PREDNISONE 20 MG ORAL TABLET 2 tabs daily for 3 days, 1 tab daily for 3 days, 1/2 tab daily for 2 days PREDNISONE 20 MG ORAL T ABLET 114276 PREDNISONE Inactive BACTRIM DS 800-160 MG ORAL TABLET 1 po BID x 7 days 29/04/10 BACTRIM DS 800-160 MG ORAL TABLET 475599 SULFAMETHOXAZOLE-TRIMETHOP RIM Inactive CIPRO 500 MG ORAL TABLET 1 tablet by mouth twice daily CIPRO 500 MG ORAL TABLET 418301 CIPROFLOXACIN HCL Inactive AZITHROMYCIN 250 MG ORAL TABLET 2 po qd x 1 day, then 1 po q d x 4 days AZITHROMYCIN 250 MG ORAL TABLET 787299 AZITHROMY SPARKLE Inactive FLAGYL 500 MG ORAL TABLET 1 tablet by mouth bid 04/13 FLAGYL 500 MG ORAL TABLET 166556 METRONIDAZOLE Inactive AZITHROMYCIN 250 MG ORAL TABLET 2 po qd x 1 day, then 1 po q d x 4 days AZITHROMYCIN 250 MG ORAL TABLET 360648 AZITHROMY SPARKLE Inactive AMOXICILLIN 500 MG ORAL CAPSULE 2 po BID x 10 days 201 01/15/27 AMOXICILLIN 500 MG ORAL CAPSULE 311724 AMOXICILLIN Inactive AMOXICILLIN 500 MG ORAL CAPSULE 2 po BID x 14 days for H. Pylori AMOXICILLIN 500 MG ORAL CAPSULE 449552 AMOXICILLIN Inactive CLARITHROMYCIN 500 MG ORAL TABLET 1 tab po BID x 14 days CLARITHROMYCIN 500 MG ORAL TABLET 602673 CLARITHROMYCIN Inacti ve FLAGYL 500 MG ORAL TABLET 1 tablet by mouth bid 08/29 FLAGYL 500 MG ORAL TABLET 024216 METRONIDAZOLE Inactive PROTONIX 40 MG ORAL TABLET DELAYED RELEASE 1 pill by m outh daily, for acid reflux PROTONIX 40 MG ORAL TABLET DELAYED RELEAS E 146878 PANTOPRAZOLE SODIUM Inactive Immunizations Vaccine Administration Date [...] ... - Chemistry sodium, serum 139 mmol/L 373-248 5494/11/28 carbon dioxide, venous blood 26.0 mmol/L 21.0-32 [...] 5.0-8.5 Encounters Code Encounter Date Provider Facility CPT-54953 [id number] Vst-Est Level III 09:37:41 CDT Dangelo Rangel MD [facility] CPT-13780 Level 4 Est. Patient 08:57:51 CRYSTAL SLICER Checo Conklin MD [facility] CPT-83240 Level 3 Est. Patient 11:24:55 CRYSTAL SLICER Efren almendarez [facility] CPT-72445 Level 3 Est. Patient 13:05:44 CDT Paul Hamlin MD [facility] CPT-56238 Level 3 Est. Patient 11:29:55 CDT Checo Conklin MD [facility] CPT-84583 Level 4 Est. Patient 11:08:12 CRYSTAL SLICER Checo Conklin MD [facility] CPT-49518 Level 4 Est. Patient 16:06:48 CRYSTAL SLICER Checo Conklin MD [facility] CPT-50574 Level 3 Est. Patient 09:11:49 CDT Efren almendarez [facility] CPT-53198 Level 2 Est. Patient 19:53:27 CDT Tanner hill MD [facility] CPT-70168 Level 3 Est. Patient 09:15:34 CDT Efren almendarez [facility] CPT-82619 Level 3 Est. Patient 11:28:51 CRYSTAL SLICER Efren almendarez [facility] CPT-69991 Level 4 Est. Patient 13:55:46 CRYSTAL SLICER Checo Conklin MD [facility] CPT-80441 Level 4 Est. Patient 17:10:53 CDT Checo Conklin MD [facility] CPT-25314 Level 3 Est. Patient 15:56:22 CDT Checo Conklin MD [facility] CPT-61067 Level 3 Est. Patient 15:29:07 CDT Checo Conklin MD [facility] CPT-88718 Level 3 Est. Patient 14:38:41 CDT Checo Conklin MD [facility] CPT-30765 Level 3 Est. Patient 15:22:03 CRYSTAL SLICER Thomas reynolds DO [facility] CPT-28445 Level 3 Est. Patient 13:34:17 CRYSTAL SLICER Checo Conklin MD [facility] CPT-84655 Level 3 Est. Patient 12:29:32 CDT Dangelo arroyo MD [facility] CPT-92038 Level 3 Est. Patient 16:53:02 CDT Checo Conklin MD [facility] CPT-76928 Level 3 Est. Patient 16:37:13 CDT Checo Conklin MD [facility] CPT-72138 Level 3 Est. Patient 16:16:59 CDT Paul Hamlin MD [facility] CPT-17679 Level 3 Est. Patient 14:20:13 CDT Dangelo arroyo MD [facility] CPT-61853 Level 4 Est. Patient 11:29:33 CDT Checo Conklin MD [facility] CPT-45703 Level 3 Est. Patient 17:08:31 CDT Checo Conklin MD [facility] CPT-15798 Level 3 Est. Patient 16:50:42 CRYSTAL SLICER Checo Conklin MD [facility] CPT-71718 Level 4 Est. Patient 09:26:08 CRYSTAL SLICER Checo Conklin MD [facility] CPT-82407 Level 3 Est. Patient 11:37:10 CDT Checo Conklin MD [facility] CPT-97350 Level 4 Est. Patient 14:07:38 CDT Checo Conklin MD [facility] CPT-07617 Level 3 Est. Patient 09:54:41 CDT Checo Conklin MD [facility] CPT-71992 Level 3 Est. Patient 11:10:54 CDT Paul Hamlin MD [facility] CPT-91980 Level 3 Est. Patient 14:16:56 CRYSTAL SLICER Checo Conklin MD [facility] CPT-91021 Level 3 Est. Patient 11:04:11 CRYSTAL SLICER Checo Conklin MD [facility] CPT-00316 Level 3 Est. Patient 17:09:26 CDT Dangelo arroyo MD [facility] CPT-42504 Level 3 Est. Patient 16:54:37 CDT Checo Conklin MD [facility] Procedures Code Procedure Name Date Entry Date Standard Desc ription CPT-99644 Wrist, right, comp 3V - XRAY USE ONLY 09:24:31 CDT CPT-07665 Abd compl w upright - XRAY USE ONLY 1 1:36:54 CRYSTAL SLICER CPT-90246 UA w micro - LAB USE ONLY 17:06:46 CDT 2015 CPT-70190 BHCG Qual - LAB USE ONLY 17:06:46 CDT 05/06 CPT-85378 CMP - LAB USE ONLY 17:06:46 CDT CPT-95960 CBC with Diff - LAB USE ONLY 17:06:45 CDT 2 CPT-45235 Venipuncture Draw Fee 17:06:45 CDT CPT-LR Lesion Removal 19:53:27 CDT CPT-OV Office Visit 11:31:28 CDT CPT-82655 Tubersol 09:39:29 CDT CPT-J2550 Phenergan 25 mg (Promethazine) 13:59:02 CRYSTAL SLICER CPT-J1885 Toradol 60 mg (Ketorolac) 13:59:02 CRYSTAL SLICER 2012
--- OUTSIDE RECORDS SUMMARY | 2019-09-29 02:24 | XMS REPORT | Clinical Summary ---
Author Author Admin, Bethany Ayala 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 Tanner Carrillo MD Neoplasm of uncertain behavior of skin Abdominal pain, generalized 789.07 Active Jillina Frazell MOP MAKER Abdominal pain, generalized Urinary frequency 788.41 Active Jillina Frazell MOP MAKER Urinary frequency BREAST CANCER ICD-V16.3 Inactive Checo [...] tab by mouth twice daily 2 TRIMETHOPRIM-SULFAMETHOXAZOLE 74755725922 No Longer Active Tanner Carrillo MD Active DIFLUCAN 150 MG TAB 1 tablet by mouth qod FLUCO NAZOLE 24163420674 No Longer Active Efren Medel APRN Active CLARITIN 10 MG TAB 1 tablet by mouth daily as needed for allergies LORATADINE 88530413756 Active Americollmanuela Medel MOP MAKER Active AZITHROMYCIN 250 MG TABS 2 po qd x 1 day, then 1 po qd x 4 days AZITHROMYCIN 94208507994 No Longer Active Jillmanuela Medel APRN Active FLAGYL 500 MG TAB 1 tablet by mouth bid METRONI DAZOLE 76928832109 No Longer Active Checo Conklin MD Active FOCALIN XR 10 MG ORAL [id number] 1 po q a.m. DEX METHYLPHENIDATE HCL 48536958915 Active Checo Conklin MD Active MAGNESIUM CITRATE 1.745 GM/30ML ORAL SOLN 150ml po BID PRN C onstipation MAGNESIUM CITRATE 34934180405 No Longer Active Checo Conklin MD Active BACTROBAN 2 % CREAM Apply to affected area BID for up to 10 days MUPIROCIN CALCIUM 53316867232 No Longer Active Checo Conklin MD Active HYDROCODONE-ACETAMINOPHEN 5-325 MG TABS 1 tab by mouth every 6 hours as needed HYDROCODONE-ACETAMINOPHEN 02409397943 No Longer Activ e Checo Conklin MD Active IBUPROFEN 800 MG TABS 1 tab every 8 hours with food 20 31/03/21 IBUPROFEN 36909734651 No Longer Active Checo Conklin MD Activ e DIFLUCAN 150 MG TAB 1 tablet by mouth if needed, hold until symptoms start FLUCONAZOLE 97483069297 No Longer Active Checo Ortiz MD Active BACTRIM DS 800-160 MG TAB 1 tab by mouth twice daily 2 TRIMETHOPRIM-SULFAMETHOXAZOLE 55739723673 No Longer Active Corry leong LPN Active MIRALAX PACK 1 po qd PRN Constipation POLYETHYL JOEL GLYCOL 3350 82370035985 Active Checo Conklin MD Active HYDROCODONE-ACETAMINOPHEN 5-325 MG TABS 0.5 to 1 tab b y mouth every 6 hours as needed HYDROCODONE-ACETAMINOPHEN 62539668284 No Longer Active Checo Conklin MD Active ONDANSETRON [address] one tablet on tongue and allow to dissolve every 6 hours as needed for vomitting ONDANSETRO N 84460062511 No Longer Active Checo Conklin MD Active COMPRO 25 MG RECTAL SUPP insert or apply one supposit ory rectally as directed every 12 hours as needed for nausea PROCHLORPERA ZINE 80917885339 No Longer Active Checo Conklin MD Active SUMATRIPTAN SUCCINATE 100 MG ORAL TABS Take one PRN for migrane SUMATRIPTAN SUCCINATE 51771511486 No Longer Active Checo Conklin MD Active TRAVEL SICKNESS 25 MG ORAL CHEW chew and swallow one t ablet every 6 hours as needed MECLIZINE HCL 07112933511 No Longer Active Joe Conklin MD Active BUPROPION HCL ER (SR) 100 MG ORAL [id number] take one t ablet by mouth one time daily for one week then take 1 two times daily BUPROPION HCL 75419590097 No Longer Active Checo Conklin MD Activ e TERBINAFINE HCL 250 MG ORAL TABS take one table PO one time abran y TERBINAFINE HCL 31279909004 No Longer Active Checo Conklin MD Active METOCLOPRAMIDE HCL 10 MG ORAL TABS take one PO tid PRN nausea 20 29/12/14 METOCLOPRAMIDE HCL 17294841334 No Longer Active Checo Conklin MD Active DICLOFENAC SODIUM 75 MG TBEC 1 tablet by mouth twice daily P RN Knee pain DICLOFENAC SODIUM 75637632044 No Longer Active Checo Conklin MD Active LAMISIL 250 MG TAB 1 po qd TERBINAFINE HCL 548 67952752 No Longer Active Checo Conklin MD Active REGLAN 10 MG TAB 1 po TID PRN Nausea METOCLOPRA MIDE HCL 15002960006 No Longer Active Checo Conklin MD Active CELEXA 20 MG TABS 1 tablet by mouth daily CITALOPRAM HYDROBROMIDE 51891245587 No Longer Active Checo Conklin MD Activ e AZITHROMYCIN 250 MG TABS 2 po qd x 1 day, then 1 po qd x 4 days AZITHROMYCIN 21473403909 No Longer Active Checo Conklin MD Active HYDROCODONE-ACETAMINOPHEN 5-325 MG TABS 1 po q 6hr PRN Pain 2013 HYDROCODONE-ACETAMINOPHEN 32415757464 No Longer Active Lenora Conklin MD Active PHENAZOPYRIDINE HCL 200 MG TABS take 1 tab po TID for bladder pa in PHENAZOPYRIDINE HCL 82770593087 No Longer Active Checo Joshua Active CIPRO 500 MG TAB 1 tablet by mouth twice daily CIPROFLOXACIN HCL 37140727860 No Longer Active Dangelo Rangel MD Active HYDROCODONE-ACETAMINOPHEN 5-325 MG TABS 1/2 to 1 po q 4 hour s prn cough HYDROCODONE-ACETAMINOPHEN 93756717575 No Longer Activ e Dangelo Rangel MD Active BACTRIM DS 800-160 MG TABS 1 po BID x 7 days 0 SULFAMETHOXAZOLE-TRIMETHOPRIM 54531957255 No Longer Active Checo Conklin MD Active PREDNISONE 20 MG TAB 2 tabs daily for 3 days, 1 t ab daily for 3 days, 1/2 tab daily for 2 days PREDNISONE 55135392996 No Longer Active Checo Conklin MD Active TRIAMCINOLONE ACETONIDE 0.1 % OINT Apply to affected a reas TID for up to 2 weeks TRIAMCINOLONE ACETONIDE 20226434749 No Longer A ctive Checo Conklin MD Active CEFDINIR 300 MG CAPS by mouth twice a day CEFDI JAZZY 43018252698 No Longer Active Dangelo Rangel MD Active BUPROPION HCL (SMOKING DETER) 150 MG [id number] 1 a day for 1 week then 1 twice a day BUPROPION HCL (SMOKING DETER) 99517949804 No Lo nger Active Checo Conklin MD Active SIMVASTATIN 20 MG TABS 1 po qd SIMVASTATIN 9968120400 5 Active Checo Conklin MD Active CHANTIX STARTING MONTH KARTHIK 0.5 MG X 11 & 1 MG X 42 TAB S 0.5mg daily for 3 days, then 0.5mg BID for 4 days, then 1mg BID VARENICLINE TARTRATE 65198316034 No Longer Active Checo Conklin MD Activ e XANAX 0.5 MG TABS 1 po BID PRN anxiety ALPRAZOLAM 62505554980 Active Checo Conklin MD Active CONCERTA 18 MG CR-TABS 1 po q a.m. METHYLPHENID ATE HCL 16341217715 No Longer Active Checo Conklin MD Active AMBIEN 5 MG TAB 1 po qHS PRN Insomnia ZOLPIDEM TARTRATE 63005741948 Active Checo Conklin MD Active TRAZODONE HCL 100 MG TAB 0.5 to 1 po qHS PRN Insomnia TRAZODONE HCL 57233968986 No Longer Active Checo Conklin MD Acti ve FIORICET 325-50-40 MG TAB 1 tablet by mouth four times daily as needed [id number] 66227301923 No Longer Active Checo Conklin MD Active PHENERGAN CREAM* 25mg applied to wrist q6hr PRN Nausea PHENERGAN CREAM* No Longer Active Checo Conklin MD A ctive FLONASE 50 MCG/ACT SUSP 1 spray each nostril am and hs FLUTICASONE PROPIONATE 16104478987 No Longer Active Checo Simms e ANTIPYRINE-BENZOCAINE 5.4-1.4 % SOLN 1-2 drops in affected ear BENZOCAINE-ANTIPYRINE 92860777597 No Longer Active Checo Conklin MD Active CEFDINIR 300 MG CAPS 1 po bid CEFDINIR 61020587 120 No Longer Active Checo Conklin MD Active PREDNISONE 20 MG TAB 2 tabs daily for 3 days, 1 t ab daily for 3 days, 1/2 tab daily for 2 days PREDNISONE 81404072548 No Longer Active Aracelis Conklin MD Active AZITHROMYCIN 250 MG TABS 2 po qd x 1 day, then 1 po qd x 4 days AZITHROMYCIN 27693904530 No Longer Active Checo Conklin MD Active PREDNISONE 20 MG TAB 2 tabs daily for 3 days, 1 t ab daily for 3 days, 1/2 tab daily for 2 days PREDNISONE 88739503178 No Longer Active Checo Conklin MD Active ZITHROMAX Z-KARTHIK 250 MG TABS 2 today, then 1 daily for 4 days 201 09/18/28 AZITHROMYCIN 04852149355 No Longer Active Paul Hamlin MD Active FOCALIN XR 10 MG [id number] 1 po q a.m. D EXMETHYLPHENIDATE HCL 89734670467 No Longer Active Paul Hamlin MD Activ e PERCOCET 10-325 MG TABS 1 tablet every 6 hours as needed for pain OXYCODONE-ACETAMINOPHEN 42610573694 No Longer Active Paul Hamlin MD Active LORTAB 5 5-500 MG TABS 1/2 to 1 tablet by mouth flaquito ry 4 hours as needed for pain HYDROCODONE-ACETAMINOPHEN 00119616311 No Longer Active Checo Conklin MD Active FOCALIN XR 15 MG [id number] 1 po q a.m. D EXMETHYLPHENIDATE HCL 48076134016 No Longer Active Checo Conklin MD Activ e ZOFRAN ODT 4 MG TBDP 1 po q6hr PRN Nausea ONDAN SETRON 90372702040 No Longer Active Checo Conklin MD Active PERCOCET 5-325 MG TABS 1 tablet by mouth every 6 hours as needed OXYCODONE-ACETAMINOPHEN 57745051944 No Longer Active Checo Conklin MD Active PYRIDIUM 200 MG TABS take 1 tab po TID prn urinary pain. 0 PHENAZOPYRIDINE HCL 42327376457 No Longer Active Checo Conklin MD Active FLUCONAZOLE 150 MG TABS take 1 tab po qday once 04/06 FLUCONAZOLE 25313336287 No Longer Active Dangelo Rangel MD Acti ve CIPRO 500 MG TAB 1 tablet by mouth twice daily CIPROFLOXACIN HCL 47036931106 No Longer Active Dangelo Rangel MD Active PYRIDIUM 200 MG TABS take 1 tab po TID prn urinary pain. 0 PYRIDIUM 200 MG TABS 5964184 PHENAZOPYRIDINE HCL Inactive PERCOCET 5-325 MG TABS 1 tablet by mouth every 6 hours as needed PERCOCET 5-325 MG TABS 4802272 OXYCODONE-ACETAMINOPHEN I nactive ZOFRAN ODT 4 MG TBDP 1 po q6hr PRN Nausea ZOFRAN ODT 4 MG TBDP 256925 ONDANSETRON Inactive FOCALIN XR 15 MG [id number] 1 po q a.m. F OCALIN XR 15 MG [id number] DEXMETHYLPHENIDATE HCL Inactive LORTAB 5 5-500 MG TABS 1/2 to 1 tablet by mouth flaquito ry 4 hours as needed for pain LORTAB 5 5-500 MG TABS HYDROCODONE-A CETAMINOPHEN Inactive PERCOCET 10-325 MG TABS 1 tablet every 6 hours as needed for pain PERCOCET 10-325 MG TABS 9569175 OXYCODONE-ACETAMINOPHEN Inactive FOCALIN XR 10 MG [id number] 1 po q a.m. F OCALIN XR 10 MG [id number] DEXMETHYLPHENIDATE HCL Inactive CEFDINIR 300 MG CAPS 1 po bid CEFDINIR 300 MG CAPS 20 0346 CEFDINIR Inactive ANTIPYRINE-BENZOCAINE 5.4-1.4 % SOLN 1-2 drops in affected ear ANTIPYRINE-BENZOCAINE 5.4-1.4 % SOLN 160636 BENZOCAINE-ANTIPYRINE I nactive FLONASE 50 MCG/ACT SUSP [...] PRN Insomnia TRAZODONE HCL 100 MG TAB 220889 TRAZODONE HCL Inactive CONCERTA 18 MG CR-TABS [...] s prn cough HYDROCODONE-ACETAMINOPHEN 5-325 MG TABS 617988 HYDROCODONE-ACETAMINOPHEN Inactive PHENAZOPYRIDINE HCL 200 MG TABS take 1 tab po TID for bladder pa in PHENAZOPYRIDINE HCL 200 MG TABS 5272001 PHENAZOPYRIDINE HCL Inactive HYDROCODONE-ACETAMINOPHEN 5-325 MG TABS 1 po q 6hr PRN Pain 2013 HYDROCODONE-ACETAMINOPHEN 5-325 MG TABS 624170 HYDROCODONE-ACETAMINOPHEN Inactive CELEXA 20 MG TABS 1 tablet by mouth daily CELEXA 20 MG TABS 654909 CITALOPRAM HYDROBROMIDE Inactive REGLAN 10 MG TAB 1 po TID PRN Nausea REGLAN 10 MG TAB 072860 METOCLOPRAMIDE HCL Inactive LAMISIL 250 MG TAB 1 po qd LAMISIL 250 MG TAB 720771 TERBINAFINE HCL Inactive DICLOFENAC SODIUM 75 MG TBEC 1 tablet by mouth twice daily P RN Knee pain DICLOFENAC SODIUM 75 MG TBEC 103753 DICLOFENAC S ODIUM Inactive METOCLOPRAMIDE HCL 10 MG ORAL TABS take one PO tid PRN nausea 20 29/12/14 METOCLOPRAMIDE HCL 10 MG ORAL TABS 754154 METOCLOPRAMID E HCL Inactive TERBINAFINE HCL 250 MG ORAL TABS take one table PO one time abran y TERBINAFINE HCL 250 MG ORAL TABS 022828 TERBINAFINE HCL Inactive BUPROPION HCL ER (SR) 100 MG ORAL [id number] take one t ablet by mouth one time daily for one week then take 1 two times daily BUPROPION HCL ER (SR) 100 MG ORAL [id number] BUPROPION HCL Inacti ve TRAVEL SICKNESS 25 MG ORAL CHEW chew and swallow one t ablet every 6 hours as needed TRAVEL SICKNESS 25 MG ORAL CHEW 158564 MECLIZINE HCL Inactive SUMATRIPTAN SUCCINATE 100 MG ORAL TABS Take one PRN for migrane SUMATRIPTAN SUCCINATE 100 MG ORAL TABS 311920 SUMATRIPT AN SUCCINATE Inactive COMPRO 25 MG RECTAL SUPP insert or apply one supposit ory rectally as directed every 12 hours as needed for nausea COMP RO 25 MG RECTAL SUPP 756651 PROCHLORPERAZINE Inactive ONDANSETRON [address] one tablet on tongue and allow to dissolve every 6 hours as needed for vomitting ON DANSETRON 8 MG ORAL TBDP 708633 ONDANSETRON Inactive HYDROCODONE-ACETAMINOPHEN 5-325 MG TABS 0.5 to 1 tab b y mouth every 6 hours as needed HYDROCODONE-ACETAMINOPHEN 5-325 MG TABS 8 63131 HYDROCODONE-ACETAMINOPHEN Inactive BACTRIM DS 800-160 MG TAB 1 tab by mouth twice daily 2 BACTRIM DS 800-160 MG TAB 034944 TRIMETHOPRIM-SULFAMETHOXAZOLE Inac tive DIFLUCAN 150 MG TAB 1 tablet by mouth if needed, hold until symptoms start DIFLUCAN 150 MG TAB 194882 FLUCONAZOLE Inactive IBUPROFEN 800 MG TABS 1 tab every 8 hours with food 20 31/03/21 IBUPROFEN 800 MG TABS 225742 IBUPROFEN Inactive HYDROCODONE-ACETAMINOPHEN 5-325 MG TABS 1 tab by mouth every 6 hours as needed HYDROCODONE-ACETAMINOPHEN 5-325 MG TABS 101395 HYDROCODONE-ACETAMINOPHEN Inactive BACTROBAN 2 % CREAM Apply to affected area BID for up to 10 days BACTROBAN 2 % CREAM 975858 MUPIROCIN CALCIUM Inactive MAGNESIUM CITRATE 1.745 GM/30ML ORAL SOLN 150ml po BID PRN C onstipation MAGNESIUM CITRATE 1.745 GM/30ML ORAL SOLN 942031 0 MAGNESIUM CITRATE Inactive DIFLUCAN 150 MG TAB 1 tablet by mouth qod DIFLUCAN 150 MG TAB 282436 FLUCONAZOLE Inactive BACTRIM DS 800-160 MG TAB 1 tab by mouth twice daily 2 BACTRIM DS 800-160 MG TAB 840634 TRIMETHOPRIM-SULFAMETHOXAZOLE Inac tive CIPRO 500 MG TAB 1 tablet by mouth twice daily CIPRO 500 MG TAB 166091 CIPROFLOXACIN HCL Inactive FLUCONAZOLE 150 MG TABS take 1 tab po qday once 04/06 FLUCONAZOLE 150 MG TABS 19760325 FLUCONAZOLE Inactive ZITHROMAX Z-KARTHIK 250 MG TABS 2 today, then 1 daily for 4 days 201 09/18/28 ZITHROMAX Z-KARTHIK 250 MG TABS 7927578 AZITHROMYCIN Inac tive PREDNISONE 20 MG TAB 2 tabs daily for 3 days, 1 t ab daily for 3 days, 1/2 tab daily for 2 days PREDNISONE 20 MG TAB 429535 PREDNISON E Inactive AZITHROMYCIN 250 MG TABS 2 po qd x 1 day, then 1 po qd x 4 days AZITHROMYCIN 250 MG TABS 2201504 AZITHROMYCIN Inactiv e PREDNISONE 20 MG TAB 2 tabs daily for 3 days, 1 t ab daily for 3 days, 1/2 tab daily for 2 days PREDNISONE 20 MG TAB 872768 PREDNISON E Inactive CEFDINIR 300 MG CAPS by mouth twice a day CEFDINIR 300 MG CAPS 109654 CEFDINIR Inactive TRIAMCINOLONE ACETONIDE 0.1 % OINT Apply to affected a reas TID for up to 2 weeks TRIAMCINOLONE ACETONIDE 0.1 % OINT 547952 6 TRIAMCINOLONE ACETONIDE Inactive PREDNISONE 20 MG TAB 2 tabs daily for 3 days, 1 t ab daily for 3 days, 1/2 tab daily for 2 days PREDNISONE 20 MG TAB 620259 PREDNISON E Inactive BACTRIM DS 800-160 MG TABS 1 po BID x 7 days 0 BACTRIM DS 800-160 MG TABS 629049 SULFAMETHOXAZOLE-TRIMETHOPRIM Inactive CIPRO 500 MG TAB 1 tablet by mouth twice daily CIPRO 500 MG TAB 657609 CIPROFLOXACIN HCL Inactive AZITHROMYCIN 250 MG TABS 2 po qd x 1 day, then 1 po qd x 4 days AZITHROMYCIN 250 MG TABS 4447021 AZITHROMYCIN Inactiv e FLAGYL 500 MG TAB 1 tablet by mouth bid FLAGYL 500 MG TAB 535987 METRONIDAZOLE Inactive AZITHROMYCIN 250 MG TABS 2 po qd x 1 day, then 1 po qd x 4 days AZITHROMYCIN 250 MG TABS 4329715 AZITHROMYCIN Inactiv e Immunizations Vaccine Administration Date [...] Report: CBC W/DIFF, Comp. Metabolic [place], [place] [facility] [place] sodium, serum 139 mmol/L 085-847 2893/10/21 carbon dioxide, venous blood 33.5 mmol/L 21.0-32 [...] Report: CBC W/DIFF, Comp. Metabolic Panel, [place] [facility] [place] Hemat[place] leukocyte count, blood 7.9 10^3/MM^3 [...] dipstick Negative Negative sodium, serum 141 mmol/L 853-942 1173/01/26 carbon dioxide, venous blood 30.0 mmol/L 21.0-32 .0 potassium, serum 4.0 mmol/L 3.5-5.2 chloride, serum 105 mmol/L 98-107 blood glucose 85 mg/dL 65-110 urea nitrogen, blood 9 mg/dL 7-18 creatinine, serum 0.66 mg/dL 0.55-1.30 alanine aminotransferase (SGPT), serum 31 U/L 12-78 aspartate aminotransferase (SGOT), serum 21 U/L 15-37 calcium, serum 8.2 mg/dL 8.5-10.1 bilirubin, serum, total 1.10 mg/dL 0.00-1.00 cholesterol, serum 178 mg/dL 476-319 9880/01/26 triglyceride, serum, fasting 149 mg/dL 30-200 HDL [...] ... - Chemistry sodium, serum 137 mmol/L 280-897 7968/05/27 carbon dioxide, venous blood 29.1 mmol/L 21.0-32 [...] 5.0-8.5 Encounters Code Encounter Date Provider Facility CPT-39738 Level 3 Est. Patient 09:11:49 CDT Efren almendarez [facility] CPT-22901 Level 2 Est. Patient 19:53:27 CDT Tanner hill MD [facility] CPT-30508 Level 3 Est. Patient 09:15:34 CDT Efren almendarez [facility] CPT-40913 Level 3 Est. Patient 11:28:51 L[employer]EL [employer] MACHINE OPERATOR Efren almendarez [facility] CPT-49158 Level 4 Est. 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 Patient 17:10:53 CDT Checo Conklin MD [facility] CPT-72260 Level 3 Est. Patient 15:56:22 CDT Checo Conklin MD [facility] CPT-61640 Level 3 Est. Patient 15:29:07 CDT Checo Conklin MD [facility] CPT-81976 Level 3 Est. Patient 14:38:41 CDT Checo Conklin MD [facility] CPT-09151 Level 3 Est. Patient 15:22:03 LEVEL [employer]ASS FORMING MACHINE OPERATOR Thomas reynolds DO [facility] CPT-13366 Level 3 Est. 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 Patient 12:29:32 CDT Dangelo arroyo MD [facility] CPT-34932 Level 3 Est. Patient 16:53:02 CDT Checo Conklin MD [facility] CPT-44020 Level 3 Est. Patient 16:37:13 CDT Checo Conklin MD [facility] CPT-54744 Level 3 Est. Patient 16:16:59 CDT Paul Hamlin MD [facility] CPT-91153 Level 3 Est. Patient 14:20:13 CDT Dangelo arroyo MD [facility] CPT-11329 Level 4 Est. Patient 11:29:33 CDT Checo Conklin MD [facility] CPT-30735 Level 3 Est. Patient 17:08:31 CDT Checo Conklin MD [facility] CPT-72365 Level 3 Est. 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 CPT-30765 Level 3 Est. Patient 11:37:10 CDT Checo Conklin MD [facility] CPT-85459 Level 4 Est. Patient 14:07:38 CDT Checo Conklin MD [facility] CPT-98618 Level 3 Est. Patient 09:54:41 CDT Checo Conklin MD [facility] CPT-01247 Level 3 Est. Patient 11:10:54 CDT Paul Hamlin MD [facility] CPT-11529 Level 3 Est. 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 Patient 17:09:26 CDT Dangelo arroyo MD [facility] CPT-55921 Level 3 Est. 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
--- OUTSIDE RECORDS SUMMARY | 2019-09-29 02:24 | XMS REPORT | Clinical Summary ---
Author Author Admin, Bethany Ayala [email or web address] Address Unknown Phone Unavailable Allergies, Adverse Reactions, [...] TABS 1.5 po qd PAROX ETINE HCL 48070189217 Active Checo Conklin MD Active FLUTICASONE PROPIONATE 50 MCG/ACT NASAL SUSP 2 sprays/ nostril qd PRN Congestion/Allergies FLUTICASONE PROPIONATE 6236500615 5 No Longer Active Checo Conklin MD Active AMOXICILLIN 500 MG ORAL CAPS 2 po BID x 10 days 09/12 AMOXICILLIN 19142214620 No Longer Active Checo Conklin MD Activ e MIRALAX ORAL POWD 8.5 to 17g po qd PRN Constipation POLYETHYLENE GLYCOL 3350 80055157288 Active Checo Conklin MD Active CLARITIN 10 MG TAB 1 tablet by mouth daily as needed for allergi es LORATADINE 84088327011 No Longer Active Checo Conklin MD Active BACTRIM DS 800-160 MG TAB 1 tab by mouth twice daily 2 TRIMETHOPRIM-SULFAMETHOXAZOLE 73151944981 No Longer Active Tanner Carrillo MD Active DIFLUCAN 150 MG TAB 1 tablet by mouth qod FLUCO NAZOLE 03669574691 No Longer Active Jillina Frazell RN [facility] Active AZITHROMYCIN 250 MG TABS 2 po qd x 1 day, then 1 po qd x 4 days AZITHROMYCIN 82442430148 No Longer Active Efren Medel APRN Active FLAGYL 500 MG TAB 1 tablet by mouth bid METRONI DAZOLE 75446844536 No Longer Active Checo Conklin MD Active FOCALIN XR 10 MG ORAL [id number] 1 po q a.m. DEX METHYLPHENIDATE HCL 93395571793 Active Checo Conklin MD Active MAGNESIUM CITRATE 1.745 GM/30ML ORAL SOLN 150ml po BID PRN C onstipation MAGNESIUM CITRATE 43817484337 No Longer Active Checo Conklin MD Active BACTROBAN 2 % CREAM Apply to affected area BID for up to 10 days MUPIROCIN CALCIUM 29777617028 No Longer Active Checo Conklin MD Active HYDROCODONE-ACETAMINOPHEN 5-325 MG TABS 1 tab by mouth every 6 hours as needed HYDROCODONE-ACETAMINOPHEN 80502318755 No Longer Activ e Checo Conklin MD Active IBUPROFEN 800 MG TABS 1 tab every 8 hours with food 20 31/03/21 IBUPROFEN 79077970135 No Longer Active Checo Conklin MD Activ e DIFLUCAN 150 MG TAB 1 tablet by mouth if needed, hold until symptoms start FLUCONAZOLE 43731283289 No Longer Active Checo Ortiz MD Active BACTRIM DS 800-160 MG TAB 1 tab by mouth twice daily 2 TRIMETHOPRIM-SULFAMETHOXAZOLE 38041298850 No Longer Active Corry leong LPN Active HYDROCODONE-ACETAMINOPHEN 5-325 MG TABS 0.5 to 1 tab b y mouth every 6 hours as needed HYDROCODONE-ACETAMINOPHEN 18608748402 No Longer Active Checo Conklin MD Active ONDANSETRON [address] one tablet on tongue and allow to dissolve every 6 hours as needed for vomitting ONDANSETRO N 84923065562 No Longer Active Checo Conklin MD Active COMPRO 25 MG RECTAL SUPP insert or apply one supposit ory rectally as directed every 12 hours as needed for nausea PROCHLORPERA ZINE 15130915904 No Longer Active Checo Conklin MD Active SUMATRIPTAN SUCCINATE 100 MG ORAL TABS Take one PRN for migrane SUMATRIPTAN SUCCINATE 79995342641 No Longer Active Checo Conklin MD Active TRAVEL SICKNESS 25 MG ORAL CHEW chew and swallow one t ablet every 6 hours as needed MECLIZINE HCL 81515209650 No Longer Active Joe Conklin MD Active BUPROPION HCL ER (SR) 100 MG ORAL [id number] take one t ablet by mouth one time daily for one week then take 1 two times daily BUPROPION HCL 57716768508 No Longer Active Checo Conklin MD Activ e TERBINAFINE HCL 250 MG ORAL TABS take one table PO one time abran y TERBINAFINE HCL 92288908666 No Longer Active Checo Conklin MD Active METOCLOPRAMIDE HCL 10 MG ORAL TABS take one PO tid PRN nausea 20 29/12/14 METOCLOPRAMIDE HCL 55722502139 No Longer Active Checo Conklin MD Active DICLOFENAC SODIUM 75 MG TBEC 1 tablet by mouth twice daily P RN Knee pain DICLOFENAC SODIUM 67748500003 No Longer Active Checo Conklin MD Active LAMISIL 250 MG TAB 1 po qd TERBINAFINE HCL 548 69938765 No Longer Active Checo Conklin MD Active REGLAN 10 MG TAB 1 po TID PRN Nausea METOCLOPRA MIDE HCL 61019001039 No Longer Active Checo Conklin MD Active CELEXA 20 MG TABS 1 tablet by mouth daily CITALOPRAM HYDROBROMIDE 76232731264 No Longer Active Checo Conklin MD Activ e AZITHROMYCIN 250 MG TABS 2 po qd x 1 day, then 1 po qd x 4 days AZITHROMYCIN 27461698496 No Longer Active Checo Conklin MD Active HYDROCODONE-ACETAMINOPHEN 5-325 MG TABS 1 po q 6hr PRN Pain 2013 HYDROCODONE-ACETAMINOPHEN 49524888953 No Longer Active Lenora Conklin MD Active PHENAZOPYRIDINE HCL 200 MG TABS take 1 tab po TID for bladder pa in PHENAZOPYRIDINE HCL 92433288602 No Longer Active Checo Joshua Active CIPRO 500 MG TAB 1 tablet by mouth twice daily CIPROFLOXACIN HCL 27273727705 No Longer Active Dangelo Rangel MD Active HYDROCODONE-ACETAMINOPHEN 5-325 MG TABS 1/2 to 1 po q 4 hour s prn cough HYDROCODONE-ACETAMINOPHEN 87050089560 No Longer Activ e Dangelo Rangel MD Active BACTRIM DS 800-160 MG TABS 1 po BID x 7 days 0 SULFAMETHOXAZOLE-TRIMETHOPRIM 13412647925 No Longer Active Checo Conklin MD Active PREDNISONE 20 MG TAB 2 tabs daily for 3 days, 1 t ab daily for 3 days, 1/2 tab daily for 2 days PREDNISONE 03095089861 No Longer Active Checo Conklin MD Active TRIAMCINOLONE ACETONIDE 0.1 % OINT Apply to affected a reas TID for up to 2 weeks TRIAMCINOLONE ACETONIDE 50076314225 No Longer A ctive Checo Conklin MD Active CEFDINIR 300 MG CAPS by mouth twice a day CEFDI JAZZY 77144145101 No Longer Active Dangelo Rangel MD Active BUPROPION HCL (SMOKING DETER) 150 MG [id number] 1 a day for 1 week then 1 twice a day BUPROPION HCL (SMOKING DETER) 67998554546 No Lo nger Active Checo Conklin MD Active SIMVASTATIN 20 MG TABS 1 po qd SIMVASTATIN 9044631912 5 Active Checo Conklin MD Active CHANTIX STARTING MONTH KARTHIK 0.5 MG X 11 & 1 MG X 42 TAB S 0.5mg daily for 3 days, then 0.5mg BID for 4 days, then 1mg BID VARENICLINE TARTRATE 16148303508 No Longer Active Checo Conklin MD Activ e XANAX 0.5 MG TABS 1 po BID PRN anxiety ALPRAZOLAM 34216484083 Active Checo Conklin MD Active CONCERTA 18 MG CR-TABS 1 po q a.m. METHYLPHENID ATE HCL 26717010419 No Longer Active Checo Conklin MD Active AMBIEN 5 MG TAB 1 po qHS PRN Insomnia ZOLPIDEM TARTRATE 21016486722 Active Checo Conklin MD Active TRAZODONE HCL 100 MG TAB 0.5 to 1 po qHS PRN Insomnia TRAZODONE HCL 74175003455 No Longer Active Checo Conklin MD Acti ve FIORICET 325-50-40 MG TAB 1 tablet by mouth four times daily as needed [id number] 66068327750 No Longer Active Checo Conklin MD Active PHENERGAN CREAM* 25mg applied to wrist q6hr PRN Nausea PHENERGAN CREAM* No Longer Active Checo Conklin MD A ctive FLONASE 50 MCG/ACT SUSP 1 spray each nostril am and hs FLUTICASONE PROPIONATE 89816966060 No Longer Active Checo Simms e ANTIPYRINE-BENZOCAINE 5.4-1.4 % SOLN 1-2 drops in affected ear BENZOCAINE-ANTIPYRINE 59096295425 No Longer Active Checo Conklin MD Active CEFDINIR 300 MG CAPS 1 po bid CEFDINIR 57385705 120 No Longer Active Checo Conlkin MD Active PREDNISONE 20 MG TAB 2 tabs daily for 3 days, 1 t ab daily for 3 days, 1/2 tab daily for 2 days PREDNISONE 68173036831 No Longer Active Aracelis Conklin MD Active AZITHROMYCIN 250 MG TABS 2 po qd x 1 day, then 1 po qd x 4 days AZITHROMYCIN 74086664130 No Longer Active Checo Conklin MD Active PREDNISONE 20 MG TAB 2 tabs daily for 3 days, 1 t ab daily for 3 days, 1/2 tab daily for 2 days PREDNISONE 13532332912 No Longer Active Checo Conklin MD Active ZITHROMAX Z-KARTHIK 250 MG TABS 2 today, then 1 daily for 4 days 201 09/18/28 AZITHROMYCIN 89772666033 No Longer Active Paul Hamlin MD Active FOCALIN XR 10 MG [id number] 1 po q a.m. D EXMETHYLPHENIDATE HCL 65438860473 No Longer Active Paul Hamlin MD Activ e PERCOCET 10-325 MG TABS 1 tablet every 6 hours as needed for pain OXYCODONE-ACETAMINOPHEN 29321312039 No Longer Active Paul Hamlin MD Active LORTAB 5 5-500 MG TABS 1/2 to 1 tablet by mouth flaquito ry 4 hours as needed for pain HYDROCODONE-ACETAMINOPHEN 07082280739 No Longer Active Checo Conklin MD Active FOCALIN XR 15 MG [id number] 1 po q a.m. D EXMETHYLPHENIDATE HCL 82489075370 No Longer Active Checo Conklin MD Activ e ZOFRAN ODT 4 MG TBDP 1 po q6hr PRN Nausea ONDAN SETRON 19751860947 No Longer Active Checo Conklin MD Active PERCOCET 5-325 MG TABS 1 tablet by mouth every 6 hours as needed OXYCODONE-ACETAMINOPHEN 19807138357 No Longer Active Checo Conklin MD Active PYRIDIUM 200 MG TABS take 1 tab po TID prn urinary pain. 0 PHENAZOPYRIDINE HCL 67260524117 No Longer Active Checo Conklin MD Active FLUCONAZOLE 150 MG TABS take 1 tab po qday once 04/06 FLUCONAZOLE 61108699259 No Longer Active Dangelo Rangel MD Acti ve CIPRO 500 MG TAB 1 tablet by mouth twice daily CIPROFLOXACIN HCL 50012016555 No Longer Active Dangelo Rangel MD Active PYRIDIUM 200 MG TABS take 1 tab po TID prn urinary pain. 0 PYRIDIUM 200 MG TABS 1565699 PHENAZOPYRIDINE HCL Inactive PERCOCET 5-325 MG TABS 1 tablet by mouth every 6 hours as needed PERCOCET 5-325 MG TABS 9060902 OXYCODONE-ACETAMINOPHEN I nactive ZOFRAN ODT 4 MG TBDP 1 po q6hr PRN Nausea ZOFRAN ODT 4 MG TBDP 821325 ONDANSETRON Inactive FOCALIN XR 15 MG [id number] 1 po q a.m. F OCALIN XR 15 MG [id number] DEXMETHYLPHENIDATE HCL Inactive LORTAB 5 5-500 MG TABS 1/2 to 1 tablet by mouth flaquito ry 4 hours as needed for pain LORTAB 5 5-500 MG TABS HYDROCODONE-A CETAMINOPHEN Inactive PERCOCET 10-325 MG TABS 1 tablet every 6 hours as needed for pain PERCOCET 10-325 MG TABS 9066354 OXYCODONE-ACETAMINOPHEN Inactive FOCALIN XR 10 MG [id number] 1 po q a.m. F OCALIN XR 10 MG [id number] DEXMETHYLPHENIDATE HCL Inactive CEFDINIR 300 MG CAPS [...] PRN Insomnia TRAZODONE HCL 100 MG TAB 025192 TRAZODONE HCL Inactive CONCERTA 18 MG CR-TABS [...] s prn cough HYDROCODONE-ACETAMINOPHEN 5-325 MG TABS 355692 HYDROCODONE-ACETAMINOPHEN Inactive PHENAZOPYRIDINE HCL 200 MG TABS take 1 tab po TID for bladder pa in PHENAZOPYRIDINE HCL 200 MG TABS 3825039 PHENAZOPYRIDINE HCL Inactive HYDROCODONE-ACETAMINOPHEN 5-325 MG TABS 1 po q 6hr PRN Pain 2013 HYDROCODONE-ACETAMINOPHEN 5-325 MG TABS 891697 HYDROCODONE-ACETAMINOPHEN Inactive CELEXA 20 MG TABS 1 tablet by mouth daily CELEXA 20 MG TABS 363507 CITALOPRAM HYDROBROMIDE Inactive REGLAN 10 MG TAB 1 po TID PRN Nausea REGLAN 10 MG TAB 275525 METOCLOPRAMIDE HCL Inactive LAMISIL 250 MG TAB 1 po qd LAMISIL 250 MG TAB 567387 TERBINAFINE HCL Inactive DICLOFENAC SODIUM 75 MG TBEC 1 tablet by mouth twice daily P RN Knee pain DICLOFENAC SODIUM 75 MG TBE 277284 DICLOFENAC S ODIUM Inactive METOCLOPRAMIDE HCL 10 MG ORAL TABS take one PO tid PRN nausea 20 29/12/14 METOCLOPRAMIDE HCL 10 MG ORAL TABS 202297 METOCLOPRAMID E HCL Inactive TERBINAFINE HCL 250 MG ORAL TABS take one table PO one time abran y TERBINAFINE HCL 250 MG ORAL TABS 810944 TERBINAFINE HCL Inactive BUPROPION HCL ER (SR) 100 MG ORAL [id number] take one t ablet by mouth one time daily for one week then take 1 two times daily BUPROPION HCL ER (SR) 100 MG ORAL [id number] BUPROPION HCL Inacti ve TRAVEL SICKNESS 25 MG ORAL CHEW chew and swallow one t ablet every 6 hours as needed TRAVEL SICKNESS 25 MG ORAL CHEW 643619 MECLIZINE HCL Inactive SUMATRIPTAN SUCCINATE 100 MG ORAL TABS Take one PRN for migrane SUMATRIPTAN SUCCINATE 100 MG ORAL TABS 965211 SUMATRIPT AN SUCCINATE Inactive COMPRO 25 MG RECTAL SUPP insert or apply one supposit ory rectally as directed every 12 hours as needed for nausea COMP RO 25 MG RECTAL SUPP 566439 PROCHLORPERAZINE Inactive ONDANSETRON [address] one tablet on tongue and allow to dissolve every 6 hours as needed for vomitting ON DANSETRON 8 MG ORAL TBDP 662546 ONDANSETRON Inactive HYDROCODONE-ACETAMINOPHEN 5-325 MG TABS 0.5 to 1 tab b y mouth every 6 hours as needed HYDROCODONE-ACETAMINOPHEN 5-325 MG TABS 8 74453 HYDROCODONE-ACETAMINOPHEN Inactive BACTRIM DS 800-160 MG TAB 1 tab by mouth twice daily 2 BACTRIM DS 800-160 MG TAB 725799 TRIMETHOPRIM-SULFAMETHOXAZOLE Inac tive DIFLUCAN 150 MG TAB 1 tablet by mouth if needed, hold until symptoms start DIFLUCAN 150 MG TAB 19760325 FLUCONAZOLE Inactive IBUPROFEN 800 MG TABS 1 tab every 8 hours with food 31/03/21 IBUPROFEN 800 MG TABS 364154 IBUPROFEN Inactive HYDROCODONE-ACETAMINOPHEN 5-325 MG TABS 1 tab by mouth every 6 hours as needed HYDROCODONE-ACETAMINOPHEN 5-325 MG TABS 520348 HYDROCODONE-ACETAMINOPHEN Inactive BACTROBAN 2 % CREAM Apply to affected area BID for up to 10 days BACTROBAN 2 % CREAM 950498 MUPIROCIN CALCIUM Inactive MAGNESIUM CITRATE 1.745 GM/30ML ORAL SOLN 150ml po BID PRN C onstipation MAGNESIUM CITRATE 1.745 GM/30ML ORAL SOLN 405111 0 MAGNESIUM CITRATE Inactive DIFLUCAN 150 MG TAB 1 tablet by mouth qod DIFLUCAN 150 MG TAB 109806 FLUCONAZOLE Inactive BACTRIM DS 800-160 MG TAB 1 tab by mouth twice daily 2 BACTRIM DS 800-160 MG TAB 506685 TRIMETHOPRIM-SULFAMETHOXAZOLE Inac tive CLARITIN 10 MG TAB 1 tablet by mouth daily as needed for allergi es CLARITIN 10 MG TAB 603826 LORATADINE Inactive FLUTICASONE PROPIONATE 50 MCG/ACT NASAL SUSP 2 sprays/ nostril qd PRN Congestion/Allergies FLUTICASONE PROPION ATE 50 MCG/ACT NASAL SUSP 9035861 FLUTICASONE PROPIONATE Inactive CIPRO 500 MG TAB 1 tablet by mouth twice daily CIPRO 500 MG TAB 281734 CIPROFLOXACIN HCL Inactive FLUCONAZOLE 150 MG TABS take 1 tab po qday once 04/06 FLUCONAZOLE 150 MG TABS 903417 FLUCONAZOLE Inactive ZITHROMAX Z-KARTHIK 250 MG TABS 2 today, then 1 daily for 4 days 201 09/18/28 ZITHROMAX Z-KARTHIK 250 MG TABS 4200041 AZITHROMYCIN Inac tive PREDNISONE 20 MG TAB 2 tabs daily for 3 days, 1 t ab daily for 3 days, 1/2 tab daily for 2 days PREDNISONE 20 MG TAB 635382 PREDNISON E Inactive AZITHROMYCIN 250 MG TABS 2 po qd x 1 day, then 1 po qd x 4 days AZITHROMYCIN 250 MG TABS 5238827 AZITHROMYCIN Inactiv e PREDNISONE 20 MG TAB 2 tabs daily for 3 days, 1 t ab daily for 3 days, 1/2 tab daily for 2 days PREDNISONE 20 MG TAB 424731 PREDNISON E Inactive CEFDINIR 300 MG CAPS by mouth twice a day CEFDINIR 300 MG CAPS 057927 CEFDINIR Inactive TRIAMCINOLONE ACETONIDE 0.1 % OINT Apply to affected a reas TID for up to 2 weeks TRIAMCINOLONE ACETONIDE 0.1 % OINT 700340 6 TRIAMCINOLONE ACETONIDE Inactive PREDNISONE 20 MG TAB 2 tabs daily for 3 days, 1 t ab daily for 3 days, 1/2 tab daily for 2 days PREDNISONE 20 MG TAB 865318 PREDNISON E Inactive BACTRIM DS 800-160 MG TABS 1 po BID x 7 days 0 BACTRIM DS 800-160 MG TABS 269363 SULFAMETHOXAZOLE-TRIMETHOPRIM Inactive CIPRO 500 MG TAB 1 tablet by mouth twice daily CIPRO 500 MG TAB 032580 CIPROFLOXACIN HCL Inactive AZITHROMYCIN 250 MG TABS 2 po qd x 1 day, then 1 po qd x 4 days AZITHROMYCIN 250 MG TABS 1155877 AZITHROMYCIN Inactiv e FLAGYL 500 MG TAB 1 tablet by mouth bid FLAGYL 500 MG TAB 420357 METRONIDAZOLE Inactive AZITHROMYCIN 250 MG TABS 2 po qd x 1 day, then 1 po qd x 4 days AZITHROMYCIN 250 MG TABS 5332805 AZITHROMYCIN Inactiv e AMOXICILLIN 500 MG ORAL CAPS 2 po BID x 10 days 09/12 AMOXICILLIN 500 MG ORAL CAPS 705531 AMOXICILLIN Inactive Immunizations Vaccine Administration Date Value [...] [place] - Chemistry sodium, serum 139 mmol/L 342-777 2488/10/21 carbon dioxide, venous blood 33.5 mmol/L 21.0-32 [...] PANEL - Chemistry cholesterol, serum 192 mg/dL 688-998 7703/02/20 HDL cholesterol, serum 31 mg/dL > OR [...] 11 .0-15.0 platelet count 218 THOUSAND/UL 10*3/mm3 331-106 8655/02/20 mean platelet volume 9.7 fL 7.5-12.5 Lab Report: Chlamydia/GC APTIMA/[id number] - Lab chlamydia DNA probe NOT DETECTED NOT DETECTED Lab Report: Chlamydia/GC APTIMA/[id number] - Microbiology Neisseria gonorrhoeae DNA probe NOT DETECTED NO T DETECTED Lab Report: Comp. Metabolic Panel, Thyro id Stimulating Hormone (L), Eryt ... - Chemistry sodium, serum 137 mmol/L 879-791 0773/05/27 carbon dioxide, venous blood 29.1 mmol/L 21.0-32 [...] 5.0-8.5 Encounters Code Encounter Date Provider Facility CPT-89953 Level 3 Est. Patient 11:29:55 CDT Checo Conklin MD [facility] CPT-50519 Level 4 Est. Patient 11:08:12 ULTRASOUND COORDINATOR Checo Conklin MD [facility] CPT-19627 Level 4 Est. Patient 16:06:48 ULTRASOUND COORDINATOR Checo Conklin MD [facility] CPT-82294 Level 3 Est. Patient 09:11:49 CDT Efren almendarez [facility] CPT-39602 Level 2 Est. Patient 19:53:27 CDT Tanner hill MD [facility] CPT-98454 Level 3 Est. Patient 09:15:34 CDT Efren almendarez [facility] CPT-98489 Level 3 Est. Patient 11:28:51 ULTRASOUND COORDINATOR Efren almendarez [facility] CPT-25936 Level 4 Est. Patient 13:55:46 ULTRASOUND COORDINATOR Checo Conklin MD [facility] CPT-11750 Level 4 Est. Patient 17:10:53 CDT Checo Conklin MD [facility] CPT-44901 Level 3 Est. Patient 15:56:22 CDT Checo Conklin MD [facility] CPT-88823 Level 3 Est. Patient 15:29:07 CDT Checo Conklin MD [facility] CPT-93381 Level 3 Est. Patient 14:38:41 CDT Checo Conklin MD [facility] CPT-06978 Level 3 Est. Patient 15:22:03 ULTRASOUND COORDINATOR Thomas reynolds DO [facility] CPT-17110 Level 3 Est. Patient 13:34:17 ULTRASOUND COORDINATOR Checo Conklin MD [facility] CPT-82985 Level 3 Est. Patient 12:29:32 CDT Dangelo arroyo MD [facility] CPT-98572 Level 3 Est. Patient 16:53:02 CDT Checo Conklin MD [facility] CPT-40185 Level 3 Est. Patient 16:37:13 CDT Checo Conklin MD [facility] CPT-32909 Level 3 Est. Patient 16:16:59 CDT Paul Hamlin MD [facility] CPT-18292 Level 3 Est. Patient 14:20:13 CDT Dangelo arroyo MD [facility] CPT-13456 Level 4 Est. Patient 11:29:33 CDT Checo Conklin MD [facility] CPT-64279 Level 3 Est. Patient 17:08:31 CDT Checo Conklin MD [facility] CPT-40132 Level 3 Est. Patient 16:50:42 ULTRASOUND COORDINATOR Checo Conklin MD [facility] CPT-24286 Level 4 Est. Patient 09:26:08 ULTRASOUND COORDINATOR Checo Conklin MD [facility] CPT-87320 Level 3 Est. Patient 11:37:10 CDT Checo Conklin MD [facility] CPT-10051 Level 4 Est. Patient 14:07:38 CDT Checo Conklin MD [facility] CPT-67992 Level 3 Est. Patient 09:54:41 CDT Checo Conklin MD [facility] CPT-32143 Level 3 Est. Patient 11:10:54 CDT Paul Hamlin MD [facility] CPT-88003 Level 3 Est. Patient 14:16:56 ULTRASOUND COORDINATOR Checo Conklin MD [facility] CPT-93647 Level 3 Est. Patient 11:04:11 ULTRASOUND COORDINATOR Checo Conklin MD [facility] CPT-20477 Level 3 Est. Patient 17:09:26 CDT Dangelo arroyo MD [facility] CPT-16578 Level 3 Est. Patient 16:54:37 CDT Checo Conklin MD [facility] Procedures Code Procedure Name Date Entry Date Standard Desc ription CPT-91498 UA w micro - LAB USE ONLY 17:06:46 CDT 2015 CPT-59506 [facility]CG Qual - LAB USE ONLY 17:06:46 CDT 05/06 CPT-91266 CMP - LAB USE ONLY 17:06:46 CDT CPT-23367 CBC with Diff - LAB USE ONLY 17:06:45 CDT 2 CPT-45955 Venipuncture Draw Fee 17:06:45 CDT CPT-LR Lesion Removal 19:53:27 CDT CPT-OV Office Visit 11:31:28 CDT CPT-08693 Tubersol 09:39:29 CDT CPT-J2550 Phenergan 25 mg (Promethazine) 13:59:02 ULTRASOUND COORDINATOR CPT-J1885 Toradol 60 mg (Ketorolac) 13:59:02 ULTRASOUND COORDINATOR 2012
--- OUTSIDE RECORDS SUMMARY | 2019-09-29 02:24 | XMS REPORT | Clinical Summary ---
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 Tanner Carrillo MD Neoplasm of uncertain behavior of skin Abdominal pain, generalized 789.07 Active Jillina Frazell [employer] PRINTER OPERATOR Abdominal pain, generalized Urinary frequency 788.41 Active Jillina Frazell [employer] PRINTER OPERATOR Urinary frequency BREAST CANCER ICD-V16.3 Inactive Checo [...] tab by mouth twice daily 2 TRIMETHOPRIM-SULFAMETHOXAZOLE 35377228032 No Longer Active Tanner Carrillo MD Active DIFLUCAN 150 MG TAB 1 tablet by mouth qod FLUCO NAZOLE 76496939367 No Longer Active Efren Medel APRN Active CLARITIN 10 MG TAB 1 tablet by mouth daily as needed for allergies LORATADINE 87256175099 Active Americollmanuela Medel [employer] WH[employer] PRINTER OPERATOR Active AZITHROMYCIN 250 MG TABS 2 po qd x 1 day, then 1 po qd x 4 days AZITHROMYCIN 48968584991 No Longer Active Jillmanuela Medel APRN Active FLAGYL 500 MG TAB 1 tablet by mouth bid METRONI DAZOLE 10452444477 No Longer Active Checo Conklin MD Active FOCALIN XR 10 MG ORAL [id number] 1 po q a.m. DEX METHYLPHENIDATE HCL 78521791415 Active Checo Conklin MD Active MAGNESIUM CITRATE 1.745 GM/30ML ORAL SOLN 150ml po BID PRN C onstipation MAGNESIUM CITRATE 27019816767 No Longer Active Checo Conklin MD Active BACTROBAN 2 % CREAM Apply to affected area BID for up to 10 days MUPIROCIN CALCIUM 13888429546 No Longer Active Checo Conklin MD Active HYDROCODONE-ACETAMINOPHEN 5-325 MG TABS 1 tab by mouth every 6 hours as needed HYDROCODONE-ACETAMINOPHEN 68450380744 No Longer Activ e Checo Conklin MD Active IBUPROFEN 800 MG TABS 1 tab every 8 hours with food 20 31/03/21 IBUPROFEN 10265594492 No Longer Active Checo Conklin MD Activ e DIFLUCAN 150 MG TAB 1 tablet by mouth if needed, hold until symptoms start FLUCONAZOLE 33535727292 No Longer Active Checo Ortiz MD Active BACTRIM DS 800-160 MG TAB 1 tab by mouth twice daily 2 TRIMETHOPRIM-SULFAMETHOXAZOLE 19594520110 No Longer Active Corry leong LPN Active MIRALAX PACK 1 po qd PRN Constipation POLYETHYL JOEL GLYCOL 3350 85011009648 Active Checo Conklin MD Active HYDROCODONE-ACETAMINOPHEN 5-325 MG TABS 0.5 to 1 tab b y mouth every 6 hours as needed HYDROCODONE-ACETAMINOPHEN 48223933799 No Longer Active Checo Conklin MD Active ONDANSETRON [address] one tablet on tongue and allow to dissolve every 6 hours as needed for vomitting ONDANSETRO N 96704425914 No Longer Active Checo Conklin MD Active COMPRO 25 MG RECTAL SUPP insert or apply one supposit ory rectally as directed every 12 hours as needed for nausea PROCHLORPERA ZINE 62633445122 No Longer Active Checo Conklin MD Active SUMATRIPTAN SUCCINATE 100 MG ORAL TABS Take one PRN for migrane SUMATRIPTAN SUCCINATE 54868752781 No Longer Active Checo Conklin MD Active TRAVEL SICKNESS 25 MG ORAL CHEW chew and swallow one t ablet every 6 hours as needed MECLIZINE HCL 64698388414 No Longer Active Joe Conklin MD Active BUPROPION HCL ER (SR) 100 MG ORAL [id number] take one t ablet by mouth one time daily for one week then take 1 two times daily BUPROPION HCL 79391802098 No Longer Active Checo Conklin MD Activ e TERBINAFINE HCL 250 MG ORAL TABS take one table PO one time abran y TERBINAFINE HCL 51852171881 No Longer Active Checo Conklin MD Active METOCLOPRAMIDE HCL 10 MG ORAL TABS take one PO tid PRN nausea 20 29/12/14 METOCLOPRAMIDE HCL 31430335705 No Longer Active Checo Conklin MD Active DICLOFENAC SODIUM 75 MG TBEC 1 tablet by mouth twice daily P RN Knee pain DICLOFENAC SODIUM 53171524078 No Longer Active Checo Conklin MD Active LAMISIL 250 MG TAB 1 po qd TERBINAFINE HCL 548 51386730 No Longer Active Checo Conklin MD Active REGLAN 10 MG TAB 1 po TID PRN Nausea METOCLOPRA MIDE HCL 08482674621 No Longer Active Checo Conklin MD Active CELEXA 20 MG TABS 1 tablet by mouth daily CITALOPRAM HYDROBROMIDE 11497171172 No Longer Active Checo Conklin MD Activ e AZITHROMYCIN 250 MG TABS 2 po qd x 1 day, then 1 po qd x 4 days AZITHROMYCIN 94668119206 No Longer Active Checo Conklin MD Active HYDROCODONE-ACETAMINOPHEN 5-325 MG TABS 1 po q 6hr PRN Pain 2013 HYDROCODONE-ACETAMINOPHEN 96486894675 No Longer Active Lenora Conklin MD Active PHENAZOPYRIDINE HCL 200 MG TABS take 1 tab po TID for bladder pa in PHENAZOPYRIDINE HCL 02466797773 No Longer Active Checo Joshua Active CIPRO 500 MG TAB 1 tablet by mouth twice daily CIPROFLOXACIN HCL 81169580725 No Longer Active Dangelo Rangel MD Active HYDROCODONE-ACETAMINOPHEN 5-325 MG TABS 1/2 to 1 po q 4 hour s prn cough HYDROCODONE-ACETAMINOPHEN 76857393289 No Longer Activ e Dangelo Rangel MD Active BACTRIM DS 800-160 MG TABS 1 po BID x 7 days 0 SULFAMETHOXAZOLE-TRIMETHOPRIM 17281708865 No Longer Active Checo Conklin MD Active PREDNISONE 20 MG TAB 2 tabs daily for 3 days, 1 t ab daily for 3 days, 1/2 tab daily for 2 days PREDNISONE 19902118293 No Longer Active Checo Conklin MD Active TRIAMCINOLONE ACETONIDE 0.1 % OINT Apply to affected a reas TID for up to 2 weeks TRIAMCINOLONE ACETONIDE 92447996704 No Longer A ctive Checo Conklin MD Active CEFDINIR 300 MG CAPS by mouth twice a day CEFDI JAZZY 06018963985 No Longer Active Dangelo Rangel MD Active BUPROPION HCL (SMOKING DETER) 150 MG [id number] 1 a day for 1 week then 1 twice a day BUPROPION HCL (SMOKING DETER) 61297370737 No Lo nger Active Checo Conklin MD Active SIMVASTATIN 20 MG TABS 1 po qd SIMVASTATIN 2078759977 5 Active Checo Conklin MD Active CHANTIX STARTING MONTH KARTHIK 0.5 MG X 11 & 1 MG X 42 TAB S 0.5mg daily for 3 days, then 0.5mg BID for 4 days, then 1mg BID VARENICLINE TARTRATE 62383249626 No Longer Active Checo Conklin MD Activ e XANAX 0.5 MG TABS 1 po BID PRN anxiety ALPRAZOLAM 37790591291 Active Checo Conklin MD Active CONCERTA 18 MG CR-TABS 1 po q a.m. METHYLPHENID ATE HCL 86891460153 No Longer Active Checo Conklin MD Active AMBIEN 5 MG TAB 1 po qHS PRN Insomnia ZOLPIDEM TARTRATE 88102220773 Active Checo Conklin MD Active TRAZODONE HCL 100 MG TAB 0.5 to 1 po qHS PRN Insomnia TRAZODONE HCL 95634654997 No Longer Active Checo Conklin MD Acti ve FIORICET 325-50-40 MG TAB 1 tablet by mouth four times daily as needed [id number] 38980629038 No Longer Active Checo Conklin MD Active PHENERGAN CREAM* 25mg applied to wrist q6hr PRN Nausea PHENERGAN CREAM* No Longer Active Checo Conklin MD A ctive FLONASE 50 MCG/ACT SUSP 1 spray each nostril am and hs FLUTICASONE PROPIONATE 77039215783 No Longer Active Checo Simms e ANTIPYRINE-BENZOCAINE 5.4-1.4 % SOLN 1-2 drops in affected ear BENZOCAINE-ANTIPYRINE 07924930834 No Longer Active Checo Conklin MD Active CEFDINIR 300 MG CAPS 1 po bid CEFDINIR 78201298 120 No Longer Active Checo Conklin MD Active PREDNISONE 20 MG TAB 2 tabs daily for 3 days, 1 t ab daily for 3 days, 1/2 tab daily for 2 days PREDNISONE 05327172009 No Longer Active Aracelis Conklin MD Active AZITHROMYCIN 250 MG TABS 2 po qd x 1 day, then 1 po qd x 4 days AZITHROMYCIN 58247083538 No Longer Active Checo Conklin MD Active PREDNISONE 20 MG TAB 2 tabs daily for 3 days, 1 t ab daily for 3 days, 1/2 tab daily for 2 days PREDNISONE 77359382274 No Longer Active Checo Conklin MD Active ZITHROMAX Z-KARTHIK 250 MG TABS 2 today, then 1 daily for 4 days 201 09/18/28 AZITHROMYCIN 18952357012 No Longer Active Paul Hamlin MD Active FOCALIN XR 10 MG [id number] 1 po q a.m. D EXMETHYLPHENIDATE HCL 27231118907 No Longer Active Paul Hamlin MD Activ e PERCOCET 10-325 MG TABS 1 tablet every 6 hours as needed for pain OXYCODONE-ACETAMINOPHEN 66864459216 No Longer Active Paul Hamlin MD Active LORTAB 5 5-500 MG TABS 1/2 to 1 tablet by mouth flaquito ry 4 hours as needed for pain HYDROCODONE-ACETAMINOPHEN 70972248520 No Longer Active Checo Conklin MD Active FOCALIN XR 15 MG [id number] 1 po q a.m. D EXMETHYLPHENIDATE HCL 28474232957 No Longer Active Checo Conklin MD Activ e ZOFRAN ODT 4 MG TBDP 1 po q6hr PRN Nausea ONDAN SETRON 94636812090 No Longer Active Checo Conklin MD Active PERCOCET 5-325 MG TABS 1 tablet by mouth every 6 hours as needed OXYCODONE-ACETAMINOPHEN 79750621825 No Longer Active Checo Conklin MD Active PYRIDIUM 200 MG TABS take 1 tab po TID prn urinary pain. 0 PHENAZOPYRIDINE HCL 94698874834 No Longer Active Checo Conklin MD Active FLUCONAZOLE 150 MG TABS take 1 tab po qday once 04/06 FLUCONAZOLE 70107622425 No Longer Active Dangelo Rangel MD Acti ve CIPRO 500 MG TAB 1 tablet by mouth twice daily CIPROFLOXACIN HCL 66888396242 No Longer Active Dangelo Rangel MD Active PYRIDIUM 200 MG TABS take 1 tab po TID prn urinary pain. 0 PYRIDIUM 200 MG TABS 3672889 PHENAZOPYRIDINE HCL Inactive PERCOCET 5-325 MG TABS 1 tablet by mouth every 6 hours as needed PERCOCET 5-325 MG TABS 6473188 OXYCODONE-ACETAMINOPHEN I nactive ZOFRAN ODT 4 MG TBDP 1 po q6hr PRN Nausea ZOFRAN ODT 4 MG TBDP 727463 ONDANSETRON Inactive FOCALIN XR 15 MG [id number] 1 po q a.m. F OCALIN XR 15 MG [id number] DEXMETHYLPHENIDATE HCL Inactive LORTAB 5 5-500 MG TABS 1/2 to 1 tablet by mouth flaquito ry 4 hours as needed for pain LORTAB 5 5-500 MG TABS HYDROCODONE-A CETAMINOPHEN Inactive PERCOCET 10-325 MG TABS 1 tablet every 6 hours as needed for pain PERCOCET 10-325 MG TABS 1966152 OXYCODONE-ACETAMINOPHEN Inactive FOCALIN XR 10 MG [id number] 1 po q a.m. F OCALIN XR 10 MG [id number]-JRK DEXMETHYLPHENIDATE HCL Inactive CEFDINIR 300 MG CAPS 1 po bid CEFDINIR 300 MG CAPS 20 0346 CEFDINIR Inactive ANTIPYRINE-BENZOCAINE 5.4-1.4 % SOLN 1-2 drops in affected ear ANTIPYRINE-BENZOCAINE 5.4-1.4 % SOLN 756672 BENZOCAINE-ANTIPYRINE I nactive FLONASE 50 MCG/ACT SUSP [...] PRN Insomnia TRAZODONE HCL 100 MG TAB 832788 TRAZODONE HCL Inactive CONCERTA 18 MG CR-TABS [...] s prn cough HYDROCODONE-ACETAMINOPHEN 5-325 MG TABS 938868 HYDROCODONE-ACETAMINOPHEN Inactive PHENAZOPYRIDINE HCL 200 MG TABS take 1 tab po TID for bladder pa in PHENAZOPYRIDINE HCL 200 MG TABS 9748313 PHENAZOPYRIDINE HCL Inactive HYDROCODONE-ACETAMINOPHEN 5-325 MG TABS 1 po q 6hr PRN Pain 2013 HYDROCODONE-ACETAMINOPHEN 5-325 MG TABS 901973 HYDROCODONE-ACETAMINOPHEN Inactive CELEXA 20 MG TABS 1 tablet by mouth daily CELEXA 20 MG TABS 958166 CITALOPRAM HYDROBROMIDE Inactive REGLAN 10 MG TAB 1 po TID PRN Nausea REGLAN 10 MG TAB 346590 METOCLOPRAMIDE HCL Inactive LAMISIL 250 MG TAB 1 po qd LAMISIL 250 MG TAB 582195 TERBINAFINE HCL Inactive DICLOFENAC SODIUM 75 MG TBEC 1 tablet by mouth twice daily P RN Knee pain DICLOFENAC SODIUM 75 MG TBEC 002045 DICLOFENAC S ODIUM Inactive METOCLOPRAMIDE HCL 10 MG ORAL TABS take one PO tid PRN nausea 20 29/12/14 METOCLOPRAMIDE HCL 10 MG ORAL TABS 294005 METOCLOPRAMID E HCL Inactive TERBINAFINE HCL 250 MG ORAL TABS take one table PO one time abran y TERBINAFINE HCL 250 MG ORAL TABS 068588 TERBINAFINE HCL Inactive BUPROPION HCL ER (SR) 100 MG ORAL [id number] take one t ablet by mouth one time daily for one week then take 1 two times daily BUPROPION HCL ER (SR) 100 MG ORAL [id number] BUPROPION HCL Inacti ve TRAVEL SICKNESS 25 MG ORAL CHEW chew and swallow one t ablet every 6 hours as needed TRAVEL SICKNESS 25 MG ORAL CHEW 921185 MECLIZINE HCL Inactive SUMATRIPTAN SUCCINATE 100 MG ORAL TABS Take one PRN for migrane SUMATRIPTAN SUCCINATE 100 MG ORAL TABS 203511 SUMATRIPT AN SUCCINATE Inactive COMPRO 25 MG RECTAL SUPP insert or apply one supposit ory rectally as directed every 12 hours as needed for nausea COMP RO 25 MG RECTAL SUPP 850360 PROCHLORPERAZINE Inactive ONDANSETRON [address] one tablet on tongue and allow to dissolve every 6 hours as needed for vomitting ON DANSETRON 8 MG ORAL TBDP 671385 ONDANSETRON Inactive HYDROCODONE-ACETAMINOPHEN 5-325 MG TABS 0.5 to 1 tab b y mouth every 6 hours as needed HYDROCODONE-ACETAMINOPHEN 5-325 MG TABS 8 42851 HYDROCODONE-ACETAMINOPHEN Inactive BACTRIM DS 800-160 MG TAB 1 tab by mouth twice daily 2 BACTRIM DS 800-160 MG TAB 990822 TRIMETHOPRIM-SULFAMETHOXAZOLE Inac tive DIFLUCAN 150 MG TAB 1 tablet by mouth if needed, hold until symptoms start DIFLUCAN 150 MG TAB 917013 FLUCONAZOLE Inactive IBUPROFEN 800 MG TABS 1 tab every 8 hours with food 20 31/03/21 IBUPROFEN 800 MG TABS 818846 IBUPROFEN Inactive HYDROCODONE-ACETAMINOPHEN 5-325 MG TABS 1 tab by mouth every 6 hours as needed HYDROCODONE-ACETAMINOPHEN 5-325 MG TABS 007040 HYDROCODONE-ACETAMINOPHEN Inactive BACTROBAN 2 % CREAM Apply to affected area BID for up to 10 days BACTROBAN 2 % CREAM 584599 MUPIROCIN CALCIUM Inactive MAGNESIUM CITRATE 1.745 GM/30ML ORAL SOLN 150ml po BID PRN C onstipation MAGNESIUM CITRATE 1.745 GM/30ML ORAL SOLN 019089 0 MAGNESIUM CITRATE Inactive DIFLUCAN 150 MG TAB 1 tablet by mouth qod DIFLUCAN 150 MG TAB 366915 FLUCONAZOLE Inactive BACTRIM DS 800-160 MG TAB 1 tab by mouth twice daily 2 BACTRIM DS 800-160 MG TAB 493099 TRIMETHOPRIM-SULFAMETHOXAZOLE Inac tive CIPRO 500 MG TAB 1 tablet by mouth twice daily CIPRO 500 MG TAB 895122 CIPROFLOXACIN HCL Inactive FLUCONAZOLE 150 MG TABS take 1 tab po qday once 04/06 FLUCONAZOLE 150 MG TABS 19760325 FLUCONAZOLE Inactive ZITHROMAX Z-KARTHIK 250 MG TABS 2 today, then 1 daily for 4 days 201 09/18/28 ZITHROMAX Z-KARTHIK 250 MG TABS 7292634 AZITHROMYCIN Inac tive PREDNISONE 20 MG TAB 2 tabs daily for 3 days, 1 t ab daily for 3 days, 1/2 tab daily for 2 days PREDNISONE 20 MG TAB 999594 PREDNISON E Inactive AZITHROMYCIN 250 MG TABS 2 po qd x 1 day, then 1 po qd x 4 days AZITHROMYCIN 250 MG TABS 9408064 AZITHROMYCIN Inactiv e PREDNISONE 20 MG TAB 2 tabs daily for 3 days, 1 t ab daily for 3 days, 1/2 tab daily for 2 days PREDNISONE 20 MG TAB 883621 PREDNISON E Inactive CEFDINIR 300 MG CAPS by mouth twice a day CEFDINIR 300 MG CAPS 821759 CEFDINIR Inactive TRIAMCINOLONE ACETONIDE 0.1 % OINT Apply to affected a reas TID for up to 2 weeks TRIAMCINOLONE ACETONIDE 0.1 % OINT 940081 6 TRIAMCINOLONE ACETONIDE Inactive PREDNISONE 20 MG TAB 2 tabs daily for 3 days, 1 t ab daily for 3 days, 1/2 tab daily for 2 days PREDNISONE 20 MG TAB 243983 PREDNISON E Inactive BACTRIM DS 800-160 MG TABS 1 po BID x 7 days 0 BACTRIM DS 800-160 MG TABS 995924 SULFAMETHOXAZOLE-TRIMETHOPRIM Inactive CIPRO 500 MG TAB 1 tablet by mouth twice daily CIPRO 500 MG TAB 308435 CIPROFLOXACIN HCL Inactive AZITHROMYCIN 250 MG TABS 2 po qd x 1 day, then 1 po qd x 4 days AZITHROMYCIN 250 MG TABS 2244423 AZITHROMYCIN Inactiv e FLAGYL 500 MG TAB 1 tablet by mouth bid FLAGYL 500 MG TAB 526231 METRONIDAZOLE Inactive AZITHROMYCIN 250 MG TABS 2 po qd x 1 day, then 1 po qd x 4 days AZITHROMYCIN 250 MG TABS 3278301 AZITHROMYCIN Inactiv e Immunizations Vaccine Administration Date [...] Report: CBC W/DIFF, Comp. Metabolic Panel, Qual [facility] - Chemistry sodium, serum 139 mmol/L 387-057 2456/10/21 carbon dioxide, venous blood 33.5 mmol/L 21.0-32 [...] Report: CBC W/DIFF, Comp. Metabolic Panel, Qual [facility] [place] - Hematology leukocyte count, blood 7.9 10^3/MM^3 [...] 248 10^3/MM^3 10*3/mm3 142-424 Lab Report: Chlamydia/[facility]/10907 - Lab chlamydia DNA probe NOT DETECTED NOT DETECTED Lab Report: Chlamydia/[facility]/[id number] - Microbiology Neisseria gonorrhoeae DNA probe NOT DETECTED NO T DETECTED Lab Report: Comp. Metabolic Panel, Lipid Panel, Thyroid Stimulating Horm ... - Chemistry protein, total urine random Negative mg/dL Negative RBC, urine, dipstick Negative Negative sodium, serum 141 mmol/L 554-596 1783/01/26 carbon dioxide, venous blood 30.0 mmol/L 21.0-32 .0 potassium, serum 4.0 mmol/L 3.5-5.2 chloride, serum 105 mmol/L 98-107 blood glucose 85 mg/dL 65-110 urea nitrogen, blood 9 mg/dL 7-18 creatinine, serum 0.66 mg/dL 0.55-1.30 alanine aminotransferase (SGPT), serum 31 U/L 12-78 aspartate aminotransferase (SGOT), serum 21 U/L 15-37 calcium, serum 8.2 mg/dL 8.5-10.1 bilirubin, serum, total 1.10 mg/dL 0.00-1.00 cholesterol, serum 178 mg/dL 534-286 5474/01/26 triglyceride, serum, fasting 149 mg/dL 30-200 HDL [...] ... - Chemistry sodium, serum 137 mmol/L 080-374 1457/05/27 carbon dioxide, venous blood 29.1 mmol/L 21.0-32 [...] 5.0-8.5 Encounters Code Encounter Date Provider Facility CPT-22234 Level 3 Est. Patient 09:11:49 CDT Efren almendarez APRN [facility] CPT-01781 Level 2 Est. Patient 19:53:27 CDT Tanner hill MD [facility] CPT-47139 Level 3 Est. Patient 09:15:34 CDT Efren Nicolas sagastumerico [facility] CPT-72345 Level 3 Est. Patient 11:28:51 HOSTED SERVICES ANALYST Efren Nicolas erickson [facility] CPT-48302 Level 4 Est. Patient 13:55:46 HOSTED SERVICES ANALYST Checo Conklin MD [facility] CPT-80091 Level 4 Est. Patient 17:10:53 CDT Checo Conklin MD [facility] CPT-63708 Level 3 Est. Patient 15:56:22 CDT Checo Conklin MD [facility] CPT-77594 Level 3 Est. Patient 15:29:07 CDT Checo Conklin MD [facility] CPT-89071 Level 3 Est. Patient 14:38:41 CDT Checo Conklin MD [facility] CPT-24757 Level 3 Est. Patient 15:22:03 HOSTED SERVICES ANALYST Thomas reynolds DO [facility] CPT-54413 Level 3 Est. Patient 13:34:17 HOSTED SERVICES ANALYST Checo Conklin MD [facility] CPT-26519 Level 3 Est. Patient 12:29:32 CDT Dangelo arroyo MD [facility]-65002 Level 3 Est. Patient 16:53:02 CDT Checo Conklin MD [facility] CPT-78769 Level 3 Est. Patient 16:37:13 CDT Checo Conklin MD [facility] CPT-61833 Level 3 Est. Patient 16:16:59 CDT Paul Hamlin MD [facility]-31430 Level 3 Est. Patient 14:20:13 CDT Dangelo arroyo MD [facility]-32492 Level 4 Est. Patient 11:29:33 CDT Checo Conklin MD [facility] CPT-85298 Level 3 Est. Patient 17:08:31 CDT Checo Conklin MD [facility] CPT-89120 Level 3 Est. Patient 16:50:42 HOSTED SERVICES ANALYST Checo Conklin MD [facility] CPT-80942 Level 4 Est. Patient 09:26:08 HOSTED SERVICES ANALYST Checo Conklin MD [facility] CPT-07099 Level 3 Est. Patient 11:37:10 CDT Checo Conklin MD [facility] CPT-70606 Level 4 Est. Patient 14:07:38 CDT Checo Conklin MD [facility] CPT-02441 Level 3 Est. Patient 09:54:41 CDT Checo Conklin MD [facility] CPT-51503 Level 3 Est. Patient 11:10:54 CDT Paul Hamlin MD [facility] CPT-84992 Level 3 Est. Patient 14:16:56 HOSTED SERVICES ANALYST Checo Conklin MD [facility] CPT-72288 Level 3 Est. Patient 11:04:11 HOSTED SERVICES ANALYST Checo Conklin MD [facility] CPT-51310 Level 3 Est. Patient 17:09:26 CDT Dangelo arroyo MD [facility] CPT-20948 Level 3 Est. Patient 16:54:37 CDT Checo Conklin MD [facility] Procedures Code Procedure Name Date Entry Date Standard Desc ription CPT-50379 UA w micro - LAB USE ONLY 17:06:46 CDT 2015 CPT-07419 [facility] Qual - LAB USE ONLY 17:06:46 CDT 05/06 CPT-03970 CMP - LAB USE ONLY 17:06:46 CDT CPT-45039 CBC with Diff - LAB USE ONLY 17:06:45 CDT 2 CPT-84074 Venipuncture Draw Fee 17:06:45 CDT CPT-LR Lesion Removal 19:53:27 CDT CPT-OV Office Visit 11:31:28 CDT CPT-37251 Tubersol 09:39:29 CDT CPT-J2550 Phenergan 25 mg (Promethazine) 13:59:02 HOSTED SERVICES ANALYST CPT-J1885 Toradol 60 mg (Ketorolac) 13:59:02 HOSTED SERVICES ANALYST 2012
--- OUTSIDE RECORDS SUMMARY | 2019-09-29 02:25 | XMS REPORT | Clinical Summary ---
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 Tanner Carrillo MD Neoplasm of uncertain behavior of skin Abdominal pain, generalized 789.07 Active Jillina Frazell SET STAFF FITTER Abdominal pain, generalized Urinary frequency 788.41 Active Jillina Frazell SET STAFF FITTER Urinary frequency BREAST CANCER ICD-V16.3 Inactive Checo [...] tab by mouth twice daily 2 TRIMETHOPRIM-SULFAMETHOXAZOLE 43138655913 No Longer Active Tanner Carrillo MD Active DIFLUCAN 150 MG TAB 1 tablet by mouth qod FLUCO NAZOLE 53933139196 No Longer Active Efren Medel APRN Active CLARITIN 10 MG TAB 1 tablet by mouth daily as needed for allergies LORATADINE 58868052039 Active Jillina Frazell SET STAFF FITTER Active AZITHROMYCIN 250 MG TABS 2 po qd x 1 day, then 1 po qd x 4 days AZITHROMYCIN 20676674824 No Longer Active Jillina Lizy MAX Active FLAGYL 500 MG TAB 1 tablet by mouth bid METRONI DAZOLE 70181389083 No Longer Active Checo Conklin MD Active FOCALIN XR 10 MG ORAL [id number] 1 po q a.m. DEX METHYLPHENIDATE HCL 69516862253 Active Checo Conklin MD Active MAGNESIUM CITRATE 1.745 GM/30ML ORAL SOLN 150ml po BID PRN C onstipation MAGNESIUM CITRATE 63649250024 No Longer Active Checo Conklin MD Active BACTROBAN 2 % CREAM Apply to affected area BID for up to 10 days MUPIROCIN CALCIUM 44983358657 No Longer Active Checo Conklin MD Active HYDROCODONE-ACETAMINOPHEN 5-325 MG TABS 1 tab by mouth every 6 hours as needed HYDROCODONE-ACETAMINOPHEN 19454433302 No Longer Activ e Checo Conklin MD Active IBUPROFEN 800 MG TABS 1 tab every 8 hours with food 31/03/21 IBUPROFEN 19368581092 No Longer Active Checo Conklin MD Activ e DIFLUCAN 150 MG TAB 1 tablet by mouth if needed, hold until symptoms start FLUCONAZOLE 94311634086 No Longer Active Checo Ortiz MD Active BACTRIM DS 800-160 MG TAB 1 tab by mouth twice daily 2 TRIMETHOPRIM-SULFAMETHOXAZOLE 47737089384 No Longer Active Corry leong LPN Active MIRALAX PACK 1 po qd PRN Constipation POLYETHYL JOEL GLYCOL 3350 25584845675 Active Checo Conklin MD Active HYDROCODONE-ACETAMINOPHEN 5-325 MG TABS 0.5 to 1 tab b y mouth every 6 hours as needed HYDROCODONE-ACETAMINOPHEN 91566756708 No Longer Active Checo Conklin MD Active ONDANSETRON [address] one tablet on tongue and allow to dissolve every 6 hours as needed for vomitting ONDANSETRO N 01675429236 No Longer Active Checo Conklin MD Active COMPRO 25 MG RECTAL SUPP insert or apply one supposit ory rectally as directed every 12 hours as needed for nausea PROCHLORPERA ZINE 39867862961 No Longer Active Checo Conklin MD Active SUMATRIPTAN SUCCINATE 100 MG ORAL TABS Take one PRN for migrane SUMATRIPTAN SUCCINATE 41523529045 No Longer Active Checo Conklin MD Active TRAVEL SICKNESS 25 MG ORAL CHEW chew and swallow one t ablet every 6 hours as needed MECLIZINE HCL 03439218641 No Longer Active Joe Conklin MD Active BUPROPION HCL ER (SR) 100 MG ORAL [id number] take one t ablet by mouth one time daily for one week then take 1 two times daily BUPROPION HCL 53944583667 No Longer Active Checo Conklin MD Activ e TERBINAFINE HCL 250 MG ORAL TABS take one table PO one time abran y TERBINAFINE HCL 06034645535 No Longer Active Checo Conklin MD Active METOCLOPRAMIDE HCL 10 MG ORAL TABS take one PO tid PRN nausea 20 29/12/14 METOCLOPRAMIDE HCL 84123651522 No Longer Active Cehco Conklin MD Active DICLOFENAC SODIUM 75 MG TBEC 1 tablet by mouth twice daily P RN Knee pain DICLOFENAC SODIUM 83737582740 No Longer Active Checo Conklin MD Active LAMISIL 250 MG TAB 1 po qd TERBINAFINE HCL 548 02711901 No Longer Active Checo Conklin MD Active REGLAN 10 MG TAB 1 po TID PRN Nausea METOCLOPRA MIDE HCL 59926485699 No Longer Active Checo Conklin MD Active CELEXA 20 MG TABS 1 tablet by mouth daily CITALOPRAM HYDROBROMIDE 19615139972 No Longer Active Checo Conklin MD Activ e AZITHROMYCIN 250 MG TABS 2 po qd x 1 day, then 1 po qd x 4 days AZITHROMYCIN 14904966275 No Longer Active Checo Conklin MD Active HYDROCODONE-ACETAMINOPHEN 5-325 MG TABS 1 po q 6hr PRN Pain 2013 HYDROCODONE-ACETAMINOPHEN 81821296291 No Longer Active Lenora Conklin MD Active PHENAZOPYRIDINE HCL 200 MG TABS take 1 tab po TID for bladder pa in PHENAZOPYRIDINE HCL 96152788955 No Longer Active Checo Joshua Active CIPRO 500 MG TAB 1 tablet by mouth twice daily CIPROFLOXACIN HCL 41740573234 No Longer Active Dangelo Rangel MD Active HYDROCODONE-ACETAMINOPHEN 5-325 MG TABS 1/2 to 1 po q 4 hour s prn cough HYDROCODONE-ACETAMINOPHEN 36687467965 No Longer Activ e Dangelo Rangel MD Active BACTRIM DS 800-160 MG TABS 1 po BID x 7 days 0 SULFAMETHOXAZOLE-TRIMETHOPRIM 50022136730 No Longer Active Checo Conklin MD Active PREDNISONE 20 MG TAB 2 tabs daily for 3 days, 1 t ab daily for 3 days, 1/2 tab daily for 2 days PREDNISONE 91150082464 No Longer Active Checo Conklin MD Active TRIAMCINOLONE ACETONIDE 0.1 % OINT Apply to affected a reas TID for up to 2 weeks TRIAMCINOLONE ACETONIDE 87168309122 No Longer A ctive Checo Conklin MD Active CEFDINIR 300 MG CAPS by mouth twice a day CEFDI JAZZY 77872732441 No Longer Active Dangelo Rangel MD Active BUPROPION HCL (SMOKING DETER) 150 MG [id number] 1 a day for 1 week then 1 twice a day BUPROPION HCL (SMOKING DETER) 87478098376 No Lo nger Active Checo Conklin MD Active SIMVASTATIN 20 MG TABS 1 po qd SIMVASTATIN 0671708010 5 Active Checo Conklin MD Active CHANTIX STARTING MONTH KARTHIK 0.5 MG X 11 & 1 MG X 42 TAB S 0.5mg daily for 3 days, then 0.5mg BID for 4 days, then 1mg BID VARENICLINE TARTRATE 53701918982 No Longer Active Checo Conklin MD Activ e XANAX 0.5 MG TABS 1 po BID PRN anxiety ALPRAZOLAM 14748936718 Active Checo Conklin MD Active CONCERTA 18 MG CR-TABS 1 po q a.m. METHYLPHENID ATE HCL 39072665907 No Longer Active Checo Conklin MD Active AMBIEN 5 MG TAB 1 po qHS PRN Insomnia ZOLPIDEM TARTRATE 06041593383 Active Checo Conklin MD Active TRAZODONE HCL 100 MG TAB 0.5 to 1 po qHS PRN Insomnia TRAZODONE HCL 90327615485 No Longer Active Checo Conklin MD Acti ve FIORICET 325-50-40 MG TAB 1 tablet by mouth four times daily as needed [id number] 23942319840 No Longer Active Checo Conklin MD Active PHENERGAN CREAM* 25mg applied to wrist q6hr PRN Nausea PHENERGAN CREAM* No Longer Active Checo Conklin MD A ctive FLONASE 50 MCG/ACT SUSP 1 spray each nostril am and hs FLUTICASONE PROPIONATE 05832106710 No Longer Active Checo Simms e ANTIPYRINE-BENZOCAINE 5.4-1.4 % SOLN 1-2 drops in affected ear BENZOCAINE-ANTIPYRINE 27217129906 No Longer Active Checo Conklin MD Active CEFDINIR 300 MG CAPS 1 po bid CEFDINIR 47279930 120 No Longer Active Checo Conklin MD Active PREDNISONE 20 MG TAB 2 tabs daily for 3 days, 1 t ab daily for 3 days, 1/2 tab daily for 2 days PREDNISONE 45667351437 No Longer Active rAacelis Conklin MD Active AZITHROMYCIN 250 MG TABS 2 po qd x 1 day, then 1 po qd x 4 days AZITHROMYCIN 89823714792 No Longer Active Checo Conklin MD Active PREDNISONE 20 MG TAB 2 tabs daily for 3 days, 1 t ab daily for 3 days, 1/2 tab daily for 2 days PREDNISONE 63431287529 No Longer Active Checo Conklin MD Active ZITHROMAX Z-KARTHIK 250 MG TABS 2 today, then 1 daily for 4 days 201 09/18/28 AZITHROMYCIN 07168486326 No Longer Active Paul Hamlin MD Active FOCALIN XR 10 MG [id number] 1 po q a.m. D EXMETHYLPHENIDATE HCL 69268370769 No Longer Active Paul Hamlin MD Activ e PERCOCET 10-325 MG TABS 1 tablet every 6 hours as needed for pain OXYCODONE-ACETAMINOPHEN 47503764129 No Longer Active Paul Hamlin MD Active LORTAB 5 5-500 MG TABS 1/2 to 1 tablet by mouth flaquito ry 4 hours as needed for pain HYDROCODONE-ACETAMINOPHEN 57075606957 No Longer Active Checo Conklin MD Active FOCALIN XR 15 MG [id number] 1 po q a.m. D EXMETHYLPHENIDATE HCL 73213243293 No Longer Active Checo Conklin MD Activ e ZOFRAN ODT 4 MG TBDP 1 po q6hr PRN Nausea ONDAN SETRON 43312890756 No Longer Active Checo Conklin MD Active PERCOCET 5-325 MG TABS 1 tablet by mouth every 6 hours as needed OXYCODONE-ACETAMINOPHEN 13096836559 No Longer Active Checo Conklin MD Active PYRIDIUM 200 MG TABS take 1 tab po TID prn urinary pain. 0 PHENAZOPYRIDINE HCL 55514910257 No Longer Active Checo Conklin MD Active FLUCONAZOLE 150 MG TABS take 1 tab po qday once 04/06 FLUCONAZOLE 84263606676 No Longer Active Dangelo Rangel MD Acti ve CIPRO 500 MG TAB 1 tablet by mouth twice daily CIPROFLOXACIN HCL 93983448013 No Longer Active Dangelo Rangel MD Active PYRIDIUM 200 MG TABS take 1 tab po TID prn urinary pain. 0 PYRIDIUM 200 MG TABS 6524778 PHENAZOPYRIDINE HCL Inactive PERCOCET 5-325 MG TABS 1 tablet by mouth every 6 hours as needed PERCOCET 5-325 MG TABS 0197348 OXYCODONE-ACETAMINOPHEN I nactive ZOFRAN ODT 4 MG TBDP 1 po q6hr PRN Nausea ZOFRAN ODT 4 MG TBDP 253753 ONDANSETRON Inactive FOCALIN XR 15 MG [id number] 1 po q a.m. F OCALIN XR 15 MG [id number] DEXMETHYLPHENIDATE HCL Inactive LORTAB 5 5-500 MG TABS 1/2 to 1 tablet by mouth flaquito ry 4 hours as needed for pain LORTAB 5 5-500 MG TABS HYDROCODONE-A CETAMINOPHEN Inactive PERCOCET 10-325 MG TABS 1 tablet every 6 hours as needed for pain PERCOCET 10-325 MG TABS 4606717 OXYCODONE-ACETAMINOPHEN Inactive FOCALIN XR 10 MG [id number] 1 po q a.m. F OCALIN XR 10 MG [id number] DEXMETHYLPHENIDATE HCL Inactive CEFDINIR 300 MG CAPS 1 po bid CEFDINIR 300 MG CAPS 20 0346 CEFDINIR Inactive ANTIPYRINE-BENZOCAINE 5.4-1.4 % SOLN 1-2 drops in affected ear ANTIPYRINE-BENZOCAINE 5.4-1.4 % SOLN 006994 BENZOCAINE-ANTIPYRINE I nactive FLONASE 50 MCG/ACT SUSP [...] PRN Insomnia TRAZODONE HCL 100 MG TAB 633796 TRAZODONE HCL Inactive CONCERTA 18 MG CR-TABS [...] s prn cough HYDROCODONE-ACETAMINOPHEN 5-325 MG TABS 679339 HYDROCODONE-ACETAMINOPHEN Inactive PHENAZOPYRIDINE HCL 200 MG TABS take 1 tab po TID for bladder pa in PHENAZOPYRIDINE HCL 200 MG TABS 4433171 PHENAZOPYRIDINE HCL Inactive HYDROCODONE-ACETAMINOPHEN 5-325 MG TABS 1 po q 6hr PRN Pain 2013 HYDROCODONE-ACETAMINOPHEN 5-325 MG TABS 332749 HYDROCODONE-ACETAMINOPHEN Inactive CELEXA 20 MG TABS 1 tablet by mouth daily CELEXA 20 MG TABS 154296 CITALOPRAM HYDROBROMIDE Inactive REGLAN 10 MG TAB 1 po TID PRN Nausea REGLAN 10 MG TAB 183240 METOCLOPRAMIDE HCL Inactive LAMISIL 250 MG TAB 1 po qd LAMISIL 250 MG TAB 242128 TERBINAFINE HCL Inactive DICLOFENAC SODIUM 75 MG TBEC 1 tablet by mouth twice daily P RN Knee pain DICLOFENAC SODIUM 75 MG TBEC 799500 DICLOFENAC S ODIUM Inactive METOCLOPRAMIDE HCL 10 MG ORAL TABS take one PO tid PRN nausea 20 29/12/14 METOCLOPRAMIDE HCL 10 MG ORAL TABS 159203 METOCLOPRAMID E HCL Inactive TERBINAFINE HCL 250 MG ORAL TABS take one table PO one time abran y TERBINAFINE HCL 250 MG ORAL TABS 922552 TERBINAFINE HCL Inactive BUPROPION HCL ER (SR) 100 MG ORAL [id number] take one t ablet by mouth one time daily for one week then take 1 two times daily BUPROPION HCL ER (SR) 100 MG ORAL [id number] BUPROPION HCL Inacti ve TRAVEL SICKNESS 25 MG ORAL CHEW chew and swallow one t ablet every 6 hours as needed TRAVEL SICKNESS 25 MG ORAL CHEW 416641 MECLIZINE HCL Inactive SUMATRIPTAN SUCCINATE 100 MG ORAL TABS Take one PRN for migrane SUMATRIPTAN SUCCINATE 100 MG ORAL TABS 103578 SUMATRIPT AN SUCCINATE Inactive COMPRO 25 MG RECTAL SUPP insert or apply one supposit ory rectally as directed every 12 hours as needed for nausea COMP RO 25 MG RECTAL SUPP 261255 PROCHLORPERAZINE Inactive ONDANSETRON [address] one tablet on tongue and allow to dissolve every 6 hours as needed for vomitting ON DANSETRON 8 MG ORAL TBDP 900556 ONDANSETRON Inactive HYDROCODONE-ACETAMINOPHEN 5-325 MG TABS 0.5 to 1 tab b y mouth every 6 hours as needed HYDROCODONE-ACETAMINOPHEN 5-325 MG TABS 8 61808 HYDROCODONE-ACETAMINOPHEN Inactive BACTRIM DS 800-160 MG TAB 1 tab by mouth twice daily 2 BACTRIM DS 800-160 MG TAB 19820918 TRIMETHOPRIM-SULFAMETHOXAZOLE Inac tive DIFLUCAN 150 MG TAB 1 tablet by mouth if needed, hold until symptoms start DIFLUCAN 150 MG TAB 19760325 FLUCONAZOLE Inactive IBUPROFEN 800 MG TABS 1 tab every 8 hours with food 20 31/03/21 IBUPROFEN 800 MG TABS 934869 IBUPROFEN Inactive HYDROCODONE-ACETAMINOPHEN 5-325 MG TABS 1 tab by mouth every 6 hours as needed HYDROCODONE-ACETAMINOPHEN 5-325 MG TABS 057443 HYDROCODONE-ACETAMINOPHEN Inactive BACTROBAN 2 % CREAM Apply to affected area BID for up to 10 days BACTROBAN 2 % CREAM 805776 MUPIROCIN CALCIUM Inactive MAGNESIUM CITRATE 1.745 GM/30ML ORAL SOLN 150ml po BID PRN C onstipation MAGNESIUM CITRATE 1.745 GM/30ML ORAL SOLN 416992 0 MAGNESIUM CITRATE Inactive DIFLUCAN 150 MG TAB 1 tablet by mouth qod DIFLUCAN 150 MG TAB 058838 FLUCONAZOLE Inactive BACTRIM DS 800-160 MG TAB 1 tab by mouth twice daily 2 BACTRIM DS 800-160 MG TAB 697311 TRIMETHOPRIM-SULFAMETHOXAZOLE Inac tive CIPRO 500 MG TAB 1 tablet by mouth twice daily CIPRO 500 MG TAB 519920 CIPROFLOXACIN HCL Inactive FLUCONAZOLE 150 MG TABS take 1 tab po qday once 04/06 FLUCONAZOLE 150 MG TABS 19760325 FLUCONAZOLE Inactive ZITHROMAX Z-KARTHIK 250 MG TABS 2 today, then 1 daily for 4 days 201 09/18/28 ZITHROMAX Z-KARTHIK 250 MG TABS 9488946 AZITHROMYCIN Inac tive PREDNISONE 20 MG TAB 2 tabs daily for 3 days, 1 t ab daily for 3 days, 1/2 tab daily for 2 days PREDNISONE 20 MG TAB 891104 PREDNISON E Inactive AZITHROMYCIN 250 MG TABS 2 po qd x 1 day, then 1 po qd x 4 days AZITHROMYCIN 250 MG TABS 6634012 AZITHROMYCIN Inactiv e PREDNISONE 20 MG TAB 2 tabs daily for 3 days, 1 t ab daily for 3 days, 1/2 tab daily for 2 days PREDNISONE 20 MG TAB 260546 PREDNISON E Inactive CEFDINIR 300 MG CAPS by mouth twice a day CEFDINIR 300 MG CAPS 555565 CEFDINIR Inactive TRIAMCINOLONE ACETONIDE 0.1 % OINT Apply to affected a reas TID for up to 2 weeks TRIAMCINOLONE ACETONIDE 0.1 % OINT 246723 6 TRIAMCINOLONE ACETONIDE Inactive PREDNISONE 20 MG TAB 2 tabs daily for 3 days, 1 t ab daily for 3 days, 1/2 tab daily for 2 days PREDNISONE 20 MG TAB 664216 PREDNISON E Inactive BACTRIM DS 800-160 MG TABS 1 po BID x 7 days 0 BACTRIM DS 800-160 MG TABS 168222 SULFAMETHOXAZOLE-TRIMETHOPRIM Inactive CIPRO 500 MG TAB 1 tablet by mouth twice daily CIPRO 500 MG TAB 892715 CIPROFLOXACIN HCL Inactive AZITHROMYCIN 250 MG TABS 2 po qd x 1 day, then 1 po qd x 4 days AZITHROMYCIN 250 MG TABS 9804572 AZITHROMYCIN Inactiv e FLAGYL 500 MG TAB 1 tablet by mouth bid FLAGYL 500 MG TAB 557775 METRONIDAZOLE Inactive AZITHROMYCIN 250 MG TABS 2 po qd x 1 day, then 1 po qd x 4 days AZITHROMYCIN 250 MG TABS 7138930 AZITHROMYCIN Inactiv e Immunizations Vaccine Administration Date [...] CITY - Chemistry sodium, serum 139 mmol/L 070-155 2765/10/21 carbon dioxide, venous blood 33.5 mmol/L 21.0-32 [...] 248 10^3/MM^3 10*3/mm3 142-424 Lab Report: Chlamydia/GC APTIMA/[id number] - Lab chlamydia DNA probe NOT DETECTED NOT DETECTED Lab Report: Chlamydia/GC [facility]/[id number] - Microbiology Neisseria gonorrhoeae DNA probe NOT DETECTED NO T DETECTED Lab Report: Comp. Metabolic Panel, Lipid Panel, Thyroid Stimulating Horm ... - Chemistry protein, total urine random Negative mg/dL Negative RBC, urine, dipstick Negative Negative sodium, serum 141 mmol/L 055-406 0404/01/26 carbon dioxide, venous blood 30.0 mmol/L 21.0-32 .0 potassium, serum 4.0 mmol/L 3.5-5.2 chloride, serum 105 mmol/L 98-107 blood glucose 85 mg/dL 65-110 urea nitrogen, blood 9 mg/dL 7-18 creatinine, serum 0.66 mg/dL 0.55-1.30 alanine aminotransferase (SGPT), serum 31 U/L 12-78 aspartate aminotransferase (SGOT), serum 21 U/L 15-37 calcium, serum 8.2 mg/dL 8.5-10.1 bilirubin, serum, total 1.10 mg/dL 0.00-1.00 cholesterol, serum 178 mg/dL 063-963 0610/01/26 triglyceride, serum, fasting 149 mg/dL 30-200 HDL [...] ... - Chemistry sodium, serum 137 mmol/L 609-383 1521/05/27 carbon dioxide, venous blood 29.1 mmol/L 21.0-32 [...] 5.0-8.5 Encounters Code Encounter Date Provider Facility CPT-63023 Level 3 Est. Patient 09:11:49 CDT Efren almendarez APRN [facility] CPT-34774 Level 2 Est. Patient 19:53:27 CDT Tanner hill MD [facility] CPT-43775 Level 3 Est. Patient 09:15:34 CDT Efren Nicolas erickson [facility] CPT-64484 Level 3 Est. Patient 11:28:51 FOLDER TIER Efren almendarez [facility] CPT-51617 Level 4 Est. Patient 13:55:46 FOLDER TIER Checo Conklin MD [facility] CPT-11197 Level 4 Est. Patient 17:10:53 CDT Checo Conklin MD [facility] CPT-44078 Level 3 Est. Patient 15:56:22 CDT Checo Conklin MD [facility] CPT-69926 Level 3 Est. Patient 15:29:07 CDT Checo Conklin MD [facility] CPT-30424 Level 3 Est. Patient 14:38:41 CDT Checo Conklin MD [facility] CPT-90436 Level 3 Est. Patient 15:22:03 FOLDER TIER Thomas reynolds DO [facility] CPT-68007 Level 3 Est. Patient 13:34:17 FOLDER TIER Checo Conklin MD [facility] CPT-38870 Level 3 Est. Patient 12:29:32 CDT Dangelo arroyo MD [facility]-56450 Level 3 Est. Patient 16:53:02 CDT Checo Conklin MD [facility] CPT-92655 Level 3 Est. Patient 16:37:13 CDT Checo Conklin MD [facility] CPT-86289 Level 3 Est. Patient 16:16:59 CDT Paul Hamlin MD [facility]-82702 Level 3 Est. Patient 14:20:13 CDT Dangelo arroyo MD [facility] CPT-53222 Level 4 Est. Patient 11:29:33 CDT Checo Conklin MD [facility] CPT-04402 Level 3 Est. Patient 17:08:31 CDT Checo Conklin MD [facility] CPT-43329 Level 3 Est. Patient 16:50:42 FOLDER TIER Checo Conklin MD [facility] CPT-15743 Level 4 Est. Patient 09:26:08 FOLDER TIER Checo Conklin MD [facility] CPT-13664 Level 3 Est. Patient 11:37:10 CDT Checo Conklin MD [facility] CPT-75113 Level 4 Est. Patient 14:07:38 CDT Checo Conklin MD [facility] CPT-66216 Level 3 Est. Patient 09:54:41 CDT Checo Conklin MD [facility] CPT-18624 Level 3 Est. Patient 11:10:54 CDT Paul Hamlin MD [facility] CPT-67536 Level 3 Est. Patient 14:16:56 FOLDER TIER Checo Conklin MD [facility] CPT-79012 Level 3 Est. Patient 11:04:11 FOLDER TIER Checo Conklin MD [facility] CPT-65878 Level 3 Est. Patient 17:09:26 CDT Dangelo arroyo MD [facility] CPT-94506 Level 3 Est. Patient 16:54:37 CDT Checo Conklin MD [facility] Procedures Code Procedure Name Date Entry Date Standard Desc ription CPT-13468 UA w micro - LAB USE ONLY 17:06:46 CDT 2015 CPT-28211 [facility] Qual - LAB USE ONLY 17:06:46 CDT 05/06 CPT-49490 CMP - LAB USE ONLY 17:06:46 CDT CPT-42033 CBC with Diff - LAB USE ONLY 17:06:45 CDT 2 CPT-99734 Venipuncture Draw Fee 17:06:45 CDT CPT-LR Lesion Removal 19:53:27 CDT CPT-OV Office Visit 11:31:28 CDT CPT-23795 Tubersol 09:39:29 CDT CPT-J2550 Phenergan 25 mg (Promethazine) 13:59:02 FOLDER TIER CPT-J1885 Toradol 60 mg (Ketorolac) 13:59:02 FOLDER TIER 2012
--- OUTSIDE RECORDS SUMMARY | 2019-09-29 02:25 | XMS REPORT | Clinical Summary ---
Author Author Admin, Bethany Gonzales Organization [employer] Address Unknown Phone Unavailable Allergies, Adverse Reactions, [...] history of diabetes mellitus CONCUSSION 850.9 Resolved Cheoc Conklin MD Concussion, unspecified UTI 599.0 Resolved [...] TABS 1.5 po qd PAROX ETINE HCL 24946039954 Active Checo Conklin MD Active FLUTICASONE PROPIONATE 50 MCG/ACT NASAL SUSP 2 sprays/ nostril qd PRN Congestion/Allergies FLUTICASONE PROPIONATE 0034668125 5 No Longer Active Checo Conklin MD Active AMOXICILLIN 500 MG ORAL CAPS 2 po BID x 10 days 09/12 AMOXICILLIN 86179744506 No Longer Active Checo Conklin MD Activ e MIRALAX ORAL POWD 8.5 to 17g po qd PRN Constipation POLYETHYLENE GLYCOL 3350 48681599068 Active Checo Conklin MD Active CLARITIN 10 MG TAB 1 tablet by mouth daily as needed for allergi es LORATADINE 03940829948 No Longer Active Checo Conklin MD Active BACTRIM DS 800-160 MG TAB 1 tab by mouth twice daily 2 TRIMETHOPRIM-SULFAMETHOXAZOLE 71344503442 No Longer Active Tanner Carrillo MD Active DIFLUCAN 150 MG TAB 1 tablet by mouth qod FLUCO NAZOLE 06494891309 No Longer Active Efren Medel APRN Active AZITHROMYCIN 250 MG TABS 2 po qd x 1 day, then 1 po qd x 4 days AZITHROMYCIN 26437518049 No Longer Active Efren Medel APRN Active FLAGYL 500 MG TAB 1 tablet by mouth bid METRONI DAZOLE 06255253909 No Longer Active Checo Conklin MD Active FOCALIN XR 10 MG ORAL [id number] 1 po q a.m. DEX METHYLPHENIDATE HCL 30122749798 Active Checo Conklin MD Active MAGNESIUM CITRATE 1.745 GM/30ML ORAL SOLN 150ml po BID PRN C onstipation MAGNESIUM CITRATE 30880699210 No Longer Active Checo Conklin MD Active BACTROBAN 2 % CREAM Apply to affected area BID for up to 10 days MUPIROCIN CALCIUM 08320584010 No Longer Active Checo Conklin MD Active HYDROCODONE-ACETAMINOPHEN 5-325 MG TABS 1 tab by mouth every 6 hours as needed HYDROCODONE-ACETAMINOPHEN 95261401329 No Longer Activ e Checo Conklin MD Active IBUPROFEN 800 MG TABS 1 tab every 8 hours with food 20 31/03/21 IBUPROFEN 59778327179 No Longer Active Checo Conklin MD Activ e DIFLUCAN 150 MG TAB 1 tablet by mouth if needed, hold until symptoms start FLUCONAZOLE 43030576868 No Longer Active Checo Ortiz MD Active BACTRIM DS 800-160 MG TAB 1 tab by mouth twice daily 2 TRIMETHOPRIM-SULFAMETHOXAZOLE 44350287929 No Longer Active Corry leong LPN Active HYDROCODONE-ACETAMINOPHEN 5-325 MG TABS 0.5 to 1 tab b y mouth every 6 hours as needed HYDROCODONE-ACETAMINOPHEN 32686268892 No Longer Active Checo Conklin MD Active ONDANSETRON [address] one tablet on tongue and allow to dissolve every 6 hours as needed for vomitting ONDANSETRO N 72617539477 No Longer Active Checo Conklin MD Active COMPRO 25 MG RECTAL SUPP insert or apply one supposit ory rectally as directed every 12 hours as needed for nausea PROCHLORPERA ZINE 61484055360 No Longer Active Checo Conklin MD Active SUMATRIPTAN SUCCINATE 100 MG ORAL TABS Take one PRN for migrane SUMATRIPTAN SUCCINATE 43003371148 No Longer Active Checo Conklin MD Active TRAVEL SICKNESS 25 MG ORAL CHEW chew and swallow one t ablet every 6 hours as needed MECLIZINE HCL 65340273630 No Longer Active Joe Conklin MD Active BUPROPION HCL ER (SR) 100 MG ORAL [id number] take one t ablet by mouth one time daily for one week then take 1 two times daily BUPROPION HCL 46284981766 No Longer Active Checo Conklin MD Activ e TERBINAFINE HCL 250 MG ORAL TABS take one table PO one time abran y TERBINAFINE HCL 61423673247 No Longer Active Checo Conklin MD Active METOCLOPRAMIDE HCL 10 MG ORAL TABS take one PO tid PRN nausea 20 29/12/14 METOCLOPRAMIDE HCL 58466412514 No Longer Active Checo Conklin MD Active DICLOFENAC SODIUM 75 MG TBEC 1 tablet by mouth twice daily P RN Knee pain DICLOFENAC SODIUM 66947035735 No Longer Active Checo Conklin MD Active LAMISIL 250 MG TAB 1 po qd TERBINAFINE HCL 548 37213546 No Longer Active Checo Conklin MD Active REGLAN 10 MG TAB 1 po TID PRN Nausea METOCLOPRA MIDE HCL 11830841557 No Longer Active Checo Conklin MD Active CELEXA 20 MG TABS 1 tablet by mouth daily CITALOPRAM HYDROBROMIDE 94704804014 No Longer Active Checo Conklin MD Activ e AZITHROMYCIN 250 MG TABS 2 po qd x 1 day, then 1 po qd x 4 days AZITHROMYCIN 08588208441 No Longer Active Checo Conklin MD Active HYDROCODONE-ACETAMINOPHEN 5-325 MG TABS 1 po q 6hr PRN Pain 2013 HYDROCODONE-ACETAMINOPHEN 52363107530 No Longer Active Lenora Conklin MD Active PHENAZOPYRIDINE HCL 200 MG TABS take 1 tab po TID for bladder pa in PHENAZOPYRIDINE HCL 89936889309 No Longer Active Checo Joshua Active CIPRO 500 MG TAB 1 tablet by mouth twice daily CIPROFLOXACIN HCL 14162770791 No Longer Active Dangelo Rangel MD Active HYDROCODONE-ACETAMINOPHEN 5-325 MG TABS 1/2 to 1 po q 4 hour s prn cough HYDROCODONE-ACETAMINOPHEN 32487358443 No Longer Activ e Dangelo Rangel MD Active BACTRIM DS 800-160 MG TABS 1 po BID x 7 days 0 SULFAMETHOXAZOLE-TRIMETHOPRIM 90067456445 No Longer Active Checo Conklin MD Active PREDNISONE 20 MG TAB 2 tabs daily for 3 days, 1 t ab daily for 3 days, 1/2 tab daily for 2 days PREDNISONE 54198823860 No Longer Active Checo Conklin MD Active TRIAMCINOLONE ACETONIDE 0.1 % OINT Apply to affected a reas TID for up to 2 weeks TRIAMCINOLONE ACETONIDE 97923752519 No Longer A ctive Checo Conklin MD Active CEFDINIR 300 MG CAPS by mouth twice a day CEFDI JAZZY 65702628331 No Longer Active Dangelo Rangel MD Active BUPROPION HCL (SMOKING DETER) 150 MG [id number] 1 a day for 1 week then 1 twice a day BUPROPION HCL (SMOKING DETER) 00227458765 No Lo nger Active Checo Conklin MD Active SIMVASTATIN 20 MG TABS 1 po qd SIMVASTATIN 5195714778 5 Active Checo Conklin MD Active CHANTIX STARTING MONTH KARTHIK 0.5 MG X 11 & 1 MG X 42 TAB S 0.5mg daily for 3 days, then 0.5mg BID for 4 days, then 1mg BID VARENICLINE TARTRATE 82791388592 No Longer Active Checo Conklin MD Activ e XANAX 0.5 MG TABS 1 po BID PRN anxiety ALPRAZOLAM 38585983235 Active Checo Conklin MD Active CONCERTA 18 MG CR-TABS 1 po q a.m. METHYLPHENID ATE HCL 77229312280 No Longer Active Checo Conklin MD Active AMBIEN 5 MG TAB 1 po qHS PRN Insomnia ZOLPIDEM TARTRATE 26184977928 Active Checo Conklin MD Active TRAZODONE HCL 100 MG TAB 0.5 to 1 po qHS PRN Insomnia TRAZODONE HCL 06081972234 No Longer Active Checo Conklin MD Acti ve FIORICET 325-50-40 MG TAB 1 tablet by mouth four times daily as needed [id number] 27483536197 No Longer Active Checo Conklin MD Active PHENERGAN CREAM* 25mg applied to wrist q6hr PRN Nausea PHENERGAN CREAM* No Longer Active Checo Conklin MD A ctive FLONASE 50 MCG/ACT SUSP 1 spray each nostril am and hs FLUTICASONE PROPIONATE 15503005128 No Longer Active Checo Conklin MD Activ e ANTIPYRINE-BENZOCAINE 5.4-1.4 % SOLN 1-2 drops in affected ear BENZOCAINE-ANTIPYRINE 34391591220 No Longer Active Checo Conklin MD Active CEFDINIR 300 MG CAPS 1 po bid CEFDINIR 71174162 120 No Longer Active Checo Conklin MD Active PREDNISONE 20 MG TAB 2 tabs daily for 3 days, 1 t ab daily for 3 days, 1/2 tab daily for 2 days PREDNISONE 59824550149 No Longer Active Aracelis Conklin MD Active AZITHROMYCIN 250 MG TABS 2 po qd x 1 day, then 1 po qd x 4 days AZITHROMYCIN 05808717560 No Longer Active Checo Conklin MD Active PREDNISONE 20 MG TAB 2 tabs daily for 3 days, 1 t ab daily for 3 days, 1/2 tab daily for 2 days PREDNISONE 36783686910 No Longer Active Checo Conklin MD Active ZITHROMAX Z-KARTHIK 250 MG TABS 2 today, then 1 daily for 4 days 201 09/18/28 AZITHROMYCIN 01109923515 No Longer Active Paul Hamlin MD Active FOCALIN XR 10 MG [id number] 1 po q a.m. D EXMETHYLPHENIDATE HCL 17321364495 No Longer Active Paul Hamlin MD Activ e PERCOCET 10-325 MG TABS 1 tablet every 6 hours as needed for pain OXYCODONE-ACETAMINOPHEN 50853066733 No Longer Active Paul Hamlin MD Active LORTAB 5 5-500 MG TABS 1/2 to 1 tablet by mouth flaquito ry 4 hours as needed for pain HYDROCODONE-ACETAMINOPHEN 51054212233 No Longer Active Checo Conklin MD Active FOCALIN XR 15 MG [id number] 1 po q a.m. D EXMETHYLPHENIDATE HCL 21212954794 No Longer Active Checo Conklin MD Activ e ZOFRAN ODT 4 MG TBDP 1 po q6hr PRN Nausea ONDAN SETRON 15549750803 No Longer Active Checo Conklin MD Active PERCOCET 5-325 MG TABS 1 tablet by mouth every 6 hours as needed OXYCODONE-ACETAMINOPHEN 10663405375 No Longer Active Checo Conklin MD Active PYRIDIUM 200 MG TABS take 1 tab po TID prn urinary pain. 0 PHENAZOPYRIDINE HCL 65295469508 No Longer Active Checo Conklin MD Active FLUCONAZOLE 150 MG TABS take 1 tab po qday once 04/06 FLUCONAZOLE 76262081596 No Longer Active Dangelo Rangel MD Acti ve CIPRO 500 MG TAB 1 tablet by mouth twice daily CIPROFLOXACIN HCL 21867460376 No Longer Active Dangelo Rangel MD Active PYRIDIUM 200 MG TABS take 1 tab po TID prn urinary pain. 0 PYRIDIUM 200 MG TABS 0090244 PHENAZOPYRIDINE HCL Inactive PERCOCET 5-325 MG TABS 1 tablet by mouth every 6 hours as needed PERCOCET 5-325 MG TABS 1474455 OXYCODONE-ACETAMINOPHEN I nactive ZOFRAN ODT 4 MG TBDP 1 po q6hr PRN Nausea ZOFRAN ODT 4 MG TBDP 356657 ONDANSETRON Inactive FOCALIN XR 15 MG [id number] 1 po q a.m. F OCALIN XR 15 MG [id number] DEXMETHYLPHENIDATE HCL Inactive LORTAB 5 5-500 MG TABS 1/2 to 1 tablet by mouth flaquito ry 4 hours as needed for pain LORTAB 5 5-500 MG TABS HYDROCODONE-A CETAMINOPHEN Inactive PERCOCET 10-325 MG TABS 1 tablet every 6 hours as needed for pain PERCOCET 10-325 MG TABS 8863696 OXYCODONE-ACETAMINOPHEN Inactive FOCALIN XR 10 MG [id number] 1 po q a.m. F OCALIN XR 10 MG [id number] DEXMETHYLPHENIDATE HCL Inactive CEFDINIR 300 MG CAPS [...] PRN Insomnia TRAZODONE HCL 100 MG TAB 331727 TRAZODONE HCL Inactive CONCERTA 18 MG CR-TABS [...] s prn cough HYDROCODONE-ACETAMINOPHEN 5-325 MG TABS 999751 HYDROCODONE-ACETAMINOPHEN Inactive PHENAZOPYRIDINE HCL 200 MG TABS take 1 tab po TID for bladder pa in PHENAZOPYRIDINE HCL 200 MG TABS 7267580 PHENAZOPYRIDINE HCL Inactive HYDROCODONE-ACETAMINOPHEN 5-325 MG TABS 1 po q 6hr PRN Pain 2013 HYDROCODONE-ACETAMINOPHEN 5-325 MG TABS 727922 HYDROCODONE-ACETAMINOPHEN Inactive CELEXA 20 MG TABS 1 tablet by mouth daily CELEXA 20 MG TABS 203421 CITALOPRAM HYDROBROMIDE Inactive REGLAN 10 MG TAB 1 po TID PRN Nausea REGLAN 10 MG TAB 072690 METOCLOPRAMIDE HCL Inactive LAMISIL 250 MG TAB 1 po qd LAMISIL 250 MG TAB 060305 TERBINAFINE HCL Inactive DICLOFENAC SODIUM 75 MG TBEC 1 tablet by mouth twice daily P RN Knee pain DICLOFENAC SODIUM 75 MG TBEC 222842 DICLOFENAC S ODIUM Inactive METOCLOPRAMIDE HCL 10 MG ORAL TABS take one PO tid PRN nausea 20 29/12/14 METOCLOPRAMIDE HCL 10 MG ORAL TABS 268878 METOCLOPRAMID E HCL Inactive TERBINAFINE HCL 250 MG ORAL TABS take one table PO one time abran y TERBINAFINE HCL 250 MG ORAL TABS 766918 TERBINAFINE HCL Inactive BUPROPION HCL ER (SR) 100 MG ORAL [id number] take one t ablet by mouth one time daily for one week then take 1 two times daily BUPROPION HCL ER (SR) 100 MG ORAL [id number] BUPROPION HCL Inacti ve TRAVEL SICKNESS 25 MG ORAL CHEW chew and swallow one t ablet every 6 hours as needed TRAVEL SICKNESS 25 MG ORAL CHEW 611912 MECLIZINE HCL Inactive SUMATRIPTAN SUCCINATE 100 MG ORAL TABS Take one PRN for migrane SUMATRIPTAN SUCCINATE 100 MG ORAL TABS 807068 SUMATRIPT AN SUCCINATE Inactive COMPRO 25 MG RECTAL SUPP insert or apply one supposit ory rectally as directed every 12 hours as needed for nausea COMP RO 25 MG RECTAL SUPP 320803 PROCHLORPERAZINE Inactive ONDANSETRON [address] one tablet on tongue and allow to dissolve every 6 hours as needed for vomitting ON DANSETRON 8 MG ORAL TBDP 091315 ONDANSETRON Inactive HYDROCODONE-ACETAMINOPHEN 5-325 MG TABS 0.5 to 1 tab b y mouth every 6 hours as needed HYDROCODONE-ACETAMINOPHEN 5-325 MG TABS 8 51384 HYDROCODONE-ACETAMINOPHEN Inactive BACTRIM DS 800-160 MG TAB 1 tab by mouth twice daily 2 BACTRIM DS 800-160 MG TAB 536666 TRIMETHOPRIM-SULFAMETHOXAZOLE Inac tive DIFLUCAN 150 MG TAB 1 tablet by mouth if needed, hold until symptoms start DIFLUCAN 150 MG TAB 19760325 FLUCONAZOLE Inactive IBUPROFEN 800 MG TABS 1 tab every 8 hours with food 31/03/21 IBUPROFEN 800 MG TABS 916804 IBUPROFEN Inactive HYDROCODONE-ACETAMINOPHEN 5-325 MG TABS 1 tab by mouth every 6 hours as needed HYDROCODONE-ACETAMINOPHEN 5-325 MG TABS 491134 HYDROCODONE-ACETAMINOPHEN Inactive BACTROBAN 2 % CREAM Apply to affected area BID for up to 10 days BACTROBAN 2 % CREAM 432035 MUPIROCIN CALCIUM Inactive MAGNESIUM CITRATE 1.745 GM/30ML ORAL SOLN 150ml po BID PRN C onstipation MAGNESIUM CITRATE 1.745 GM/30ML ORAL SOLN 197448 0 MAGNESIUM CITRATE Inactive DIFLUCAN 150 MG TAB 1 tablet by mouth qod DIFLUCAN 150 MG TAB 457422 FLUCONAZOLE Inactive BACTRIM DS 800-160 MG TAB 1 tab by mouth twice daily 2 BACTRIM DS 800-160 MG TAB 558965 TRIMETHOPRIM-SULFAMETHOXAZOLE Inac tive CLARITIN 10 MG TAB 1 tablet by mouth daily as needed for allergi es CLARITIN 10 MG TAB 732453 LORATADINE Inactive FLUTICASONE PROPIONATE 50 MCG/ACT NASAL SUSP 2 sprays/ nostril qd PRN Congestion/Allergies FLUTICASONE PROPION ATE 50 MCG/ACT NASAL SUSP 0134489 FLUTICASONE PROPIONATE Inactive CIPRO 500 MG TAB 1 tablet by mouth twice daily CIPRO 500 MG TAB 004348 CIPROFLOXACIN HCL Inactive FLUCONAZOLE 150 MG TABS take 1 tab po qday once 04/06 FLUCONAZOLE 150 MG TABS 435871 FLUCONAZOLE Inactive ZITHROMAX Z-KARTHIK 250 MG TABS 2 today, then 1 daily for 4 days 201 09/18/28 ZITHROMAX Z-KARTHIK 250 MG TABS 6273617 AZITHROMYCIN Inac tive PREDNISONE 20 MG TAB 2 tabs daily for 3 days, 1 t ab daily for 3 days, 1/2 tab daily for 2 days PREDNISONE 20 MG TAB 851158 PREDNISON E Inactive AZITHROMYCIN 250 MG TABS 2 po qd x 1 day, then 1 po qd x 4 days AZITHROMYCIN 250 MG TABS 1915669 AZITHROMYCIN Inactiv e PREDNISONE 20 MG TAB 2 tabs daily for 3 days, 1 t ab daily for 3 days, 1/2 tab daily for 2 days PREDNISONE 20 MG TAB 825699 PREDNISON E Inactive CEFDINIR 300 MG CAPS by mouth twice a day CEFDINIR 300 MG CAPS 808277 CEFDINIR Inactive TRIAMCINOLONE ACETONIDE 0.1 % OINT Apply to affected a reas TID for up to 2 weeks TRIAMCINOLONE ACETONIDE 0.1 % OINT 752693 6 TRIAMCINOLONE ACETONIDE Inactive PREDNISONE 20 MG TAB 2 tabs daily for 3 days, 1 t ab daily for 3 days, 1/2 tab daily for 2 days PREDNISONE 20 MG TAB 564738 PREDNISON E Inactive BACTRIM DS 800-160 MG TABS 1 po BID x 7 days 0 BACTRIM DS 800-160 MG TABS 500210 SULFAMETHOXAZOLE-TRIMETHOPRIM Inactive CIPRO 500 MG TAB 1 tablet by mouth twice daily CIPRO 500 MG TAB 594407 CIPROFLOXACIN HCL Inactive AZITHROMYCIN 250 MG TABS 2 po qd x 1 day, then 1 po qd x 4 days AZITHROMYCIN 250 MG TABS 3516366 AZITHROMYCIN Inactiv e FLAGYL 500 MG TAB 1 tablet by mouth bid FLAGYL 500 MG TAB 934109 METRONIDAZOLE Inactive AZITHROMYCIN 250 MG TABS 2 po qd x 1 day, then 1 po qd x 4 days AZITHROMYCIN 250 MG TABS 4057165 AZITHROMYCIN Inactiv e AMOXICILLIN 500 MG ORAL CAPS 2 po BID x 10 days 09/12 AMOXICILLIN 500 MG ORAL CAPS 225114 AMOXICILLIN Inactive Immunizations Vaccine Administration Date Value [...] Comp. Metabolic Panel, Qual [facility] - Chemistry sodium, serum 139 mmol/L 953-369 2185/10/21 carbon dioxide, venous blood 33.5 mmol/L 21.0-32 [...] Comp. Metabolic Panel, Qual [facility] - Hematology leukocyte count, blood [...] PANEL - Chemistry cholesterol, serum 192 mg/dL 851-039 8781/02/20 HDL cholesterol, serum 31 mg/dL > OR [...] 11 .0-15.0 platelet count 218 THOUSAND/UL 10*3/mm3 759-547 2264/02/20 mean platelet volume 9.7 fL 7.5-12.5 Lab Report: Chlamydia/GC APTIMA/[id number] - Lab chlamydia DNA probe NOT DETECTED NOT DETECTED Lab Report: Chlamydia/GC APTIMA/[id number] - Microbiology Neisseria gonorrhoeae DNA probe NOT DETECTED NO T DETECTED Lab Report: Comp. Metabolic Panel, Thyro id Stimulating Hormone (L), Eryt ... - Chemistry sodium, serum 137 mmol/L 495-644 0992/05/27 carbon dioxide, venous blood 29.1 mmol/L 21.0-32 [...] 5.0-8.5 Encounters Code Encounter Date Provider Facility CPT-07609 Level 3 Est. Patient 11:29:55 CDT Checo Conklin MD [facility] CPT-63140 Level 4 Est. Patient 11:08:12 MIRROR SILVERER Checo Conklin MD [facility] CPT-65184 Level 4 Est. Patient 16:06:48 MIRROR SILVERER Checo Conklin MD [facility] CPT-64949 Level 3 Est. Patient 09:11:49 CDT Efren almendarez [facility] CPT-71005 Level 2 Est. Patient 19:53:27 CDT Tanner hill MD [facility] CPT-07195 Level 3 Est. Patient 09:15:34 CDT Efren almendarez [facility] CPT-38994 Level 3 Est. Patient 11:28:51 MIRROR SILVERER Efren almendarez [facility] CPT-56928 Level 4 Est. Patient 13:55:46 MIRROR SILVERER Checo Conklin MD [facility] CPT-50528 Level 4 Est. Patient 17:10:53 CDT Checo Conklin MD [facility] CPT-44220 Level 3 Est. Patient 15:56:22 CDT Checo Conklin MD [facility] CPT-70034 Level 3 Est. Patient 15:29:07 CDT Checo Conklin MD [facility] CPT-30314 Level 3 Est. Patient 14:38:41 CDT Checo Conklin MD [facility] CPT-09225 Level 3 Est. Patient 15:22:03 MIRROR SILVERER Thomas reynolds DO [facility] CPT-78461 Level 3 Est. Patient 13:34:17 MIRROR SILVERER Checo Conklin MD [facility] CPT-81346 Level 3 Est. Patient 12:29:32 CDT Dangelo arroyo MD [facility] CPT-09692 Level 3 Est. Patient 16:53:02 CDT Checo Conklin MD [facility] CPT-89702 Level 3 Est. Patient 16:37:13 CDT Checo Conklin MD [facility] CPT-71706 Level 3 Est. Patient 16:16:59 CDT Paul Hamlin MD [facility] CPT-97177 Level 3 Est. Patient 14:20:13 CDT Dangelo arroyo MD [facility] CPT-16002 Level 4 Est. Patient 11:29:33 CDT Checo Conklin MD [facility] CPT-24422 Level 3 Est. Patient 17:08:31 CDT Checo Conklin MD [facility] CPT-15693 Level 3 Est. Patient 16:50:42 MIRROR SILVERER Checo Conklin MD [facility] CPT-35275 Level 4 Est. Patient 09:26:08 MIRROR SILVERER Checo Conklin MD [facility] CPT-82315 Level 3 Est. Patient 11:37:10 CDT Checo Conklin MD [facility] CPT-42469 Level 4 Est. Patient 14:07:38 CDT Checo Conklin MD [facility] CPT-83170 Level 3 Est. Patient 09:54:41 CDT Checo Conklin MD [facility] CPT-13874 Level 3 Est. Patient 11:10:54 CDT Paul Hamlin MD [facility] CPT-80506 Level 3 Est. Patient 14:16:56 MIRROR SILVERER Checo Conklin MD [facility] CPT-73384 Level 3 Est. Patient 11:04:11 MIRROR SILVERER Checo Conklin MD [facility] CPT-86212 Level 3 Est. Patient 17:09:26 CDT Dangelo arroyo MD [facility] CPT-61415 Level 3 Est. Patient 16:54:37 CDT Checo Conklin MD [facility] Procedures Code Procedure Name Date Entry Date Standard Desc ription CPT-94646 UA w micro - LAB USE ONLY 17:06:46 CDT 2015 CPT-25077 [facility] Qual - LAB USE ONLY 17:06:46 CDT 05/06 CPT-17935 CMP - LAB USE ONLY 17:06:46 CDT CPT-25729 CBC with Diff - LAB USE ONLY 17:06:45 CDT 2 CPT-32653 Venipuncture Draw Fee 17:06:45 CDT CPT-LR Lesion Removal 19:53:27 CDT CPT-OV Office Visit 11:31:28 CDT CPT-60537 Tubersol 09:39:29 CDT CPT-J2550 Phenergan 25 mg (Promethazine) 13:59:02 MIRROR SILVERER CPT-J1885 Toradol 60 mg (Ketorolac) 13:59:02 MIRROR SILVERER 2012
--- OUTSIDE RECORDS SUMMARY | 2019-09-29 02:25 | XMS REPORT | Clinical Summary ---
Author Author Admin, Bethany Gonzales Organization mention Address Unknown Phone Unavailable Allergies, Adverse Reactions, [...] Conklin MD Mastalgia ICD-611.71 Inactive Checo Joshua ABDOMINAL PAIN RIGHT LOWER QUADRANT ICD-789.03 Inactive Checo Conklin MD Insect bite ICD-919.4 [...] Urinary frequency ICD-788.41 Inactive Checo Conklin MD Sinusitis ICD-461.9 Inactive Checo Conklin MD Medication List Medication Instructions Start Date Stop Date Generic Name NDC Status Provider Patient Instruction AMOXICILLIN 500 MG ORAL CAPS 2 po BID x 10 days 09/12 AMOXICILLIN [id number] Active Checo Conklin MD Active PAROXETINE HCL 20 MG ORAL TABS 0.5 po qd 6 days, then 1 po qd 09/02 PAROXETINE HCL 60354819332 Active Checo Conklin MD Active FLUTICASONE PROPIONATE 50 MCG/ACT NASAL SUSP 2 sprays/ nostril qd PRN Congestion/Allergies FLUTICASONE PROPIONATE 86662867883 Ac tive Checo Conklin MD Active MIRALAX ORAL POWD 8.5 to 17g po qd PRN Constipation POLYETHYLENE GLYCOL 3350 73632055126 Active Checo Conklin MD Active CLARITIN 10 MG TAB 1 tablet by mouth daily as needed for allergi es LORATADINE 45470635561 No Longer Active Checo Conklin MD Active BACTRIM DS 800-160 MG TAB 1 tab by mouth twice daily 2 TRIMETHOPRIM-SULFAMETHOXAZOLE 02774053807 No Longer Active Tanner Carrillo MD Active DIFLUCAN 150 MG TAB 1 tablet by mouth qod FLUCO NAZOLE 88161163281 No Longer Active Efren Medel APRN Active AZITHROMYCIN 250 MG TABS 2 po qd x 1 day, then 1 po qd x 4 days AZITHROMYCIN 49289672131 No Longer Active Efren Medel APRN Active FLAGYL 500 MG TAB 1 tablet by mouth bid METRONI DAZOLE 46182564134 No Longer Active Checo Conklin MD Active FOCALIN XR 10 MG ORAL [id number] 1 po q a.m. DEX METHYLPHENIDATE HCL 28179084871 Active Checo Conklin MD Active MAGNESIUM CITRATE 1.745 GM/30ML ORAL SOLN 150ml po BID PRN C onstipation MAGNESIUM CITRATE 83157041709 No Longer Active Checo Conklin MD Active BACTROBAN 2 % CREAM Apply to affected area BID for up to 10 days MUPIROCIN CALCIUM 46132092842 No Longer Active Checo Conklin MD Active HYDROCODONE-ACETAMINOPHEN 5-325 MG TABS 1 tab by mouth every 6 hours as needed HYDROCODONE-ACETAMINOPHEN 57815949644 No Longer Activ e Checo Conklin MD Active IBUPROFEN 800 MG TABS 1 tab every 8 hours with food 31/03/21 IBUPROFEN 04769680165 No Longer Active Checo Conklin MD Activ e DIFLUCAN 150 MG TAB 1 tablet by mouth if needed, hold until symptoms start FLUCONAZOLE 43626291440 No Longer Active Checo Ortiz MD Active BACTRIM DS 800-160 MG TAB 1 tab by mouth twice daily 2 TRIMETHOPRIM-SULFAMETHOXAZOLE 35285452894 No Longer Active Corry leong LPN Active HYDROCODONE-ACETAMINOPHEN 5-325 MG TABS 0.5 to 1 tab b y mouth every 6 hours as needed HYDROCODONE-ACETAMINOPHEN 31839644990 No Longer Active Checo Conklin MD Active ONDANSETRON [address] one tablet on tongue and allow to dissolve every 6 hours as needed for vomitting ONDANSETRO N 50649565310 No Longer Active Checo Conklin MD Active COMPRO 25 MG RECTAL SUPP insert or apply one supposit ory rectally as directed every 12 hours as needed for nausea PROCHLORPERA ZINE 40419564485 No Longer Active Checo Conklin MD Active SUMATRIPTAN SUCCINATE 100 MG ORAL TABS Take one PRN for migrane SUMATRIPTAN SUCCINATE 49268518058 No Longer Active Checo Conklin MD Active TRAVEL SICKNESS 25 MG ORAL CHEW chew and swallow one t ablet every 6 hours as needed MECLIZINE HCL 41672392290 No Longer Active Joe Conklin MD Active BUPROPION HCL ER (SR) 100 MG ORAL [id number] take one t ablet by mouth one time daily for one week then take 1 two times daily BUPROPION HCL 47683831403 No Longer Active Checo Conklin MD Activ e TERBINAFINE HCL 250 MG ORAL TABS take one table PO one time abran y TERBINAFINE HCL 71517304636 No Longer Active Checo Conklin MD Active METOCLOPRAMIDE HCL 10 MG ORAL TABS take one PO tid PRN nausea 20 29/12/14 METOCLOPRAMIDE HCL 01435603513 No Longer Active Checo Conklin MD Active DICLOFENAC SODIUM 75 MG TBEC 1 tablet by mouth twice daily P RN Knee pain DICLOFENAC SODIUM 80403105386 No Longer Active Checo Conklin MD Active LAMISIL 250 MG TAB 1 po qd TERBINAFINE HCL 548 65551991 No Longer Active Checo Conklin MD Active REGLAN 10 MG TAB 1 po TID PRN Nausea METOCLOPRA MIDE HCL 57368617786 No Longer Active Checo Conklin MD Active CELEXA 20 MG TABS 1 tablet by mouth daily CITALOPRAM HYDROBROMIDE 27296152323 No Longer Active Checo Conklin MD Activ e AZITHROMYCIN 250 MG TABS 2 po qd x 1 day, then 1 po qd x 4 days AZITHROMYCIN 87355921007 No Longer Active Checo Conklin MD Active HYDROCODONE-ACETAMINOPHEN 5-325 MG TABS 1 po q 6hr PRN Pain 2013 HYDROCODONE-ACETAMINOPHEN 40881157038 No Longer Active Lenora Conklin MD Active PHENAZOPYRIDINE HCL 200 MG TABS take 1 tab po TID for bladder pa in PHENAZOPYRIDINE HCL 73278015690 No Longer Active Checo Joshua Active CIPRO 500 MG TAB 1 tablet by mouth twice daily CIPROFLOXACIN HCL 87996009404 No Longer Active Dangelo Rangel MD Active HYDROCODONE-ACETAMINOPHEN 5-325 MG TABS 1/2 to 1 po q 4 hour s prn cough HYDROCODONE-ACETAMINOPHEN 51130641263 No Longer Activ e Dangelo Rangel MD Active BACTRIM DS 800-160 MG TABS 1 po BID x 7 days 0 SULFAMETHOXAZOLE-TRIMETHOPRIM 52031921433 No Longer Active Checo Conklin MD Active PREDNISONE 20 MG TAB 2 tabs daily for 3 days, 1 t ab daily for 3 days, 1/2 tab daily for 2 days PREDNISONE 18141650675 No Longer Active Checo Conklin MD Active TRIAMCINOLONE ACETONIDE 0.1 % OINT Apply to affected a reas TID for up to 2 weeks TRIAMCINOLONE ACETONIDE 05222224871 No Longer A ctive Checo Conklin MD Active CEFDINIR 300 MG CAPS by mouth twice a day CEFDI JAZZY 89193301610 No Longer Active Dangelo Rangel MD Active BUPROPION HCL (SMOKING DETER) 150 MG [id number] 1 a day for 1 week then 1 twice a day BUPROPION HCL (SMOKING DETER) 47818051669 No Lo nger Active Checo Conklin MD Active SIMVASTATIN 20 MG TABS 1 po qd SIMVASTATIN 4828011486 5 Active Checo Conklin MD Active CHANTIX STARTING MONTH KARTHIK 0.5 MG X 11 & 1 MG X 42 TAB S 0.5mg daily for 3 days, then 0.5mg BID for 4 days, then 1mg BID VARENICLINE TARTRATE 20375563172 No Longer Active Checo Conklin MD Activ e XANAX 0.5 MG TABS 1 po BID PRN anxiety ALPRAZOLAM 02945987982 Active Checo Conklin MD Active CONCERTA 18 MG CR-TABS 1 po q a.m. METHYLPHENID ATE HCL 17200542921 No Longer Active Checo Conklin MD Active AMBIEN 5 MG TAB 1 po qHS PRN Insomnia ZOLPIDEM TARTRATE 68315365948 Active Checo Conklin MD Active TRAZODONE HCL 100 MG TAB 0.5 to 1 po qHS PRN Insomnia TRAZODONE HCL 68068287852 No Longer Active Checo Conklin MD Acti ve FIORICET 325-50-40 MG TAB 1 tablet by mouth four times daily as needed [id number] 60590341510 No Longer Active Checo Conklin MD Active PHENERGAN CREAM* 25mg applied to wrist q6hr PRN Nausea PHENERGAN CREAM* No Longer Active Checo Conklin MD A ctive FLONASE 50 MCG/ACT SUSP 1 spray each nostril am and hs FLUTICASONE PROPIONATE 98589428475 No Longer Active Checo Conklin MD Activ e ANTIPYRINE-BENZOCAINE 5.4-1.4 % SOLN 1-2 drops in affected ear BENZOCAINE-ANTIPYRINE 09361540003 No Longer Active Checo Conklin MD Active CEFDINIR 300 MG CAPS 1 po bid CEFDINIR 56843802 120 No Longer Active Checo Conklin MD Active PREDNISONE 20 MG TAB 2 tabs daily for 3 days, 1 t ab daily for 3 days, 1/2 tab daily for 2 days PREDNISONE 95854368621 No Longer Active Aracelis Conklin MD Active AZITHROMYCIN 250 MG TABS 2 po qd x 1 day, then 1 po qd x 4 days AZITHROMYCIN 64134082542 No Longer Active Checo Conklin MD Active PREDNISONE 20 MG TAB 2 tabs daily for 3 days, 1 t ab daily for 3 days, 1/2 tab daily for 2 days PREDNISONE 30644393552 No Longer Active Checo Conklin MD Active ZITHROMAX Z-KARTHIK 250 MG TABS 2 today, then 1 daily for 4 days 201 09/18/28 AZITHROMYCIN 53977157188 No Longer Active Paul Hamlin MD Active FOCALIN XR 10 MG [id number] 1 po q a.m. D EXMETHYLPHENIDATE HCL 15771363676 No Longer Active Paul Hamlin MD Activ e PERCOCET 10-325 MG TABS 1 tablet every 6 hours as needed for pain OXYCODONE-ACETAMINOPHEN 22552812084 No Longer Active Paul Hamlin MD Active LORTAB 5 5-500 MG TABS 1/2 to 1 tablet by mouth flaquito ry 4 hours as needed for pain HYDROCODONE-ACETAMINOPHEN 40226629324 No Longer Active Checo Conklin MD Active FOCALIN XR 15 MG [id number] 1 po q a.m. D EXMETHYLPHENIDATE HCL 07013239276 No Longer Active Checo Conklin MD Activ e ZOFRAN ODT 4 MG TBDP 1 po q6hr PRN Nausea ONDAN SETRON 88090131193 No Longer Active Checo Conklin MD Active PERCOCET 5-325 MG TABS 1 tablet by mouth every 6 hours as needed OXYCODONE-ACETAMINOPHEN 47447593564 No Longer Active Checo Conklin MD Active PYRIDIUM 200 MG TABS take 1 tab po TID prn urinary pain. 0 PHENAZOPYRIDINE HCL 76623741821 No Longer Active Checo Conklin MD Active FLUCONAZOLE 150 MG TABS take 1 tab po qday once 04/06 FLUCONAZOLE 89398945145 No Longer Active Dangelo Rangel MD Acti ve CIPRO 500 MG TAB 1 tablet by mouth twice daily CIPROFLOXACIN HCL 37824058025 No Longer Active Dangelo Rangel MD Active PYRIDIUM 200 MG TABS take 1 tab po TID prn urinary pain. 0 PYRIDIUM 200 MG TABS 7550757 PHENAZOPYRIDINE HCL Inactive PERCOCET 5-325 MG TABS 1 tablet by mouth every 6 hours as needed PERCOCET 5-325 MG TABS 9531253 OXYCODONE-ACETAMINOPHEN I nactive ZOFRAN ODT 4 MG TBDP 1 po q6hr PRN Nausea ZOFRAN ODT 4 MG TBDP 515889 ONDANSETRON Inactive FOCALIN XR 15 MG [id number] 1 po q a.m. F OCALIN XR 15 MG [id number]-JBE DEXMETHYLPHENIDATE HCL Inactive LORTAB 5 5-500 MG TABS 1/2 to 1 tablet by mouth flaquito ry 4 hours as needed for pain LORTAB 5 5-500 MG TABS HYDROCODONE-A CETAMINOPHEN Inactive PERCOCET 10-325 MG TABS 1 tablet every 6 hours as needed for pain PERCOCET 10-325 MG TABS 9744718 OXYCODONE-ACETAMINOPHEN Inactive FOCALIN XR 10 MG [id number] 1 po q a.m. F OCALIN XR 10 MG [id number] DEXMETHYLPHENIDATE HCL Inactive CEFDINIR 300 MG CAPS [...] PRN Insomnia TRAZODONE HCL 100 MG TAB 394314 TRAZODONE HCL Inactive CONCERTA 18 MG CR-TABS [...] s prn cough HYDROCODONE-ACETAMINOPHEN 5-325 MG TABS 326109 HYDROCODONE-ACETAMINOPHEN Inactive PHENAZOPYRIDINE HCL 200 MG TABS take 1 tab po TID for bladder pa in PHENAZOPYRIDINE HCL 200 MG TABS 9495788 PHENAZOPYRIDINE HCL Inactive HYDROCODONE-ACETAMINOPHEN 5-325 MG TABS 1 po q 6hr PRN Pain 2013 HYDROCODONE-ACETAMINOPHEN 5-325 MG TABS 536886 HYDROCODONE-ACETAMINOPHEN Inactive CELEXA 20 MG TABS 1 tablet by mouth daily CELEXA 20 MG TABS 018517 CITALOPRAM HYDROBROMIDE Inactive REGLAN 10 MG TAB 1 po TID PRN Nausea REGLAN 10 MG TAB 101040 METOCLOPRAMIDE HCL Inactive LAMISIL 250 MG TAB 1 po qd LAMISIL 250 MG TAB 662656 TERBINAFINE HCL Inactive DICLOFENAC SODIUM 75 MG TBEC 1 tablet by mouth twice daily P RN Knee pain DICLOFENAC SODIUM 75 MG TBEC 902428 DICLOFENAC S ODIUM Inactive METOCLOPRAMIDE HCL 10 MG ORAL TABS take one PO tid PRN nausea 20 29/12/14 METOCLOPRAMIDE HCL 10 MG ORAL TABS 190552 METOCLOPRAMID E HCL Inactive TERBINAFINE HCL 250 MG ORAL TABS take one table PO one time abran y TERBINAFINE HCL 250 MG ORAL TABS 592044 TERBINAFINE HCL Inactive BUPROPION HCL ER (SR) 100 MG ORAL [id number] take one t ablet by mouth one time daily for one week then take 1 two times daily BUPROPION HCL ER (SR) 100 MG ORAL [id number] BUPROPION HCL Inacti ve TRAVEL SICKNESS 25 MG ORAL CHEW chew and swallow one t ablet every 6 hours as needed TRAVEL SICKNESS 25 MG ORAL CHEW 032756 MECLIZINE HCL Inactive SUMATRIPTAN SUCCINATE 100 MG ORAL TABS Take one PRN for migrane SUMATRIPTAN SUCCINATE 100 MG ORAL TABS 461897 SUMATRIPT AN SUCCINATE Inactive COMPRO 25 MG RECTAL SUPP insert or apply one supposit ory rectally as directed every 12 hours as needed for nausea COMP RO 25 MG RECTAL SUPP 829900 PROCHLORPERAZINE Inactive ONDANSETRON [address] one tablet on tongue and allow to dissolve every 6 hours as needed for vomitting ON DANSETRON 8 MG ORAL TBDP 124382 ONDANSETRON Inactive HYDROCODONE-ACETAMINOPHEN 5-325 MG TABS 0.5 to 1 tab b y mouth every 6 hours as needed HYDROCODONE-ACETAMINOPHEN 5-325 MG TABS 8 54738 HYDROCODONE-ACETAMINOPHEN Inactive BACTRIM DS 800-160 MG TAB 1 tab by mouth twice daily 2 BACTRIM DS 800-160 MG TAB 222028 TRIMETHOPRIM-SULFAMETHOXAZOLE Inac tive DIFLUCAN 150 MG TAB 1 tablet by mouth if needed, hold until symptoms start DIFLUCAN 150 MG TAB 560206 FLUCONAZOLE Inactive IBUPROFEN 800 MG TABS 1 tab every 8 hours with food 31/03/21 IBUPROFEN 800 MG TABS 619097 IBUPROFEN Inactive HYDROCODONE-ACETAMINOPHEN 5-325 MG TABS 1 tab by mouth every 6 hours as needed HYDROCODONE-ACETAMINOPHEN 5-325 MG TABS 330353 HYDROCODONE-ACETAMINOPHEN Inactive BACTROBAN 2 % CREAM Apply to affected area BID for up to 10 days BACTROBAN 2 % CREAM 399793 MUPIROCIN CALCIUM Inactive MAGNESIUM CITRATE 1.745 GM/30ML ORAL SOLN 150ml po BID PRN C onstipation MAGNESIUM CITRATE 1.745 GM/30ML ORAL SOLN 192934 0 MAGNESIUM CITRATE Inactive DIFLUCAN 150 MG TAB 1 tablet by mouth qod DIFLUCAN 150 MG TAB 006959 FLUCONAZOLE Inactive BACTRIM DS 800-160 MG TAB 1 tab by mouth twice daily 2 BACTRIM DS 800-160 MG TAB 010190 TRIMETHOPRIM-SULFAMETHOXAZOLE Inac tive CLARITIN 10 MG TAB 1 tablet by mouth daily as needed for allergi es CLARITIN 10 MG TAB 382766 LORATADINE Inactive CIPRO 500 MG TAB 1 tablet by mouth twice daily CIPRO 500 MG TAB 961736 CIPROFLOXACIN HCL Inactive FLUCONAZOLE 150 MG TABS take 1 tab po qday once 04/06 FLUCONAZOLE 150 MG TABS 014319 FLUCONAZOLE Inactive ZITHROMAX Z-KARTHIK 250 MG TABS 2 today, then 1 daily for 4 days 201 09/18/28 ZITHROMAX Z-KARTHIK 250 MG TABS 6861257 AZITHROMYCIN Inac tive PREDNISONE 20 MG TAB 2 tabs daily for 3 days, 1 t ab daily for 3 days, 1/2 tab daily for 2 days PREDNISONE 20 MG TAB 549213 PREDNISON E Inactive AZITHROMYCIN 250 MG TABS 2 po qd x 1 day, then 1 po qd x 4 days AZITHROMYCIN 250 MG TABS 5820867 AZITHROMYCIN Inactiv e PREDNISONE 20 MG TAB 2 tabs daily for 3 days, 1 t ab daily for 3 days, 1/2 tab daily for 2 days PREDNISONE 20 MG TAB 032517 PREDNISON E Inactive CEFDINIR 300 MG CAPS by mouth twice a day CEFDINIR 300 MG CAPS 305508 CEFDINIR Inactive TRIAMCINOLONE ACETONIDE 0.1 % OINT Apply to affected a reas TID for up to 2 weeks TRIAMCINOLONE ACETONIDE 0.1 % OINT 497811 6 TRIAMCINOLONE ACETONIDE Inactive PREDNISONE 20 MG TAB 2 tabs daily for 3 days, 1 t ab daily for 3 days, 1/2 tab daily for 2 days PREDNISONE 20 MG TAB 391834 PREDNISON E Inactive BACTRIM DS 800-160 MG TABS 1 po BID x 7 days 0 BACTRIM DS 800-160 MG TABS 420399 SULFAMETHOXAZOLE-TRIMETHOPRIM Inactive CIPRO 500 MG TAB 1 tablet by mouth twice daily CIPRO 500 MG TAB 122646 CIPROFLOXACIN HCL Inactive AZITHROMYCIN 250 MG TABS 2 po qd x 1 day, then 1 po qd x 4 days AZITHROMYCIN 250 MG TABS 0648255 AZITHROMYCIN Inactiv e FLAGYL 500 MG TAB 1 tablet by mouth bid FLAGYL 500 MG TAB 723171 METRONIDAZOLE Inactive AZITHROMYCIN 250 MG TABS 2 po qd x 1 day, then 1 po qd x 4 days AZITHROMYCIN 250 MG TABS 4173984 AZITHROMYCIN Inactiv e Immunizations Vaccine Administration Date [...] pressure, diastolic - 8462-4 79 mm[Hg] BP mtahew blood pressure, systolic - 8480-6 114 mm[Hg] [...] Lab Report: CBC W/DIFF, Comp. Metabolic Panel, [facility] - Chemistry sodium, serum 139 mmol/L 693-235 4760/10/21 carbon dioxide, venous blood 33.5 mmol/L 21.0-32 [...] Report: CBC W/DIFF, Comp. Metabolic Panel, Qual [facility] [place], [place] - Hematology leukocyte count, blood 7.9 10^3/MM^3 [...] PANEL - Chemistry cholesterol, serum 192 mg/dL 346-087 2342/02/20 HDL cholesterol, serum 31 mg/dL > OR [...] 11 .0-15.0 platelet count 218 THOUSAND/UL 10*3/mm3 274-112 1518/02/20 mean platelet volume 9.7 fL 7.5-12.5 Lab Report: Chlamydia/GC APTIMA/[id number] - Lab chlamydia DNA probe NOT DETECTED NOT DETECTED Lab Report: Chlamydia/GC APTIMA/[id number] - Microbiology Neisseria gonorrhoeae DNA probe NOT DETECTED NO T DETECTED Lab Report: Comp. Metabolic Panel, Thyro id Stimulating Hormone (L), Eryt ... - Chemistry sodium, serum 137 mmol/L 491-006 2749/05/27 carbon dioxide, venous blood 29.1 mmol/L 21.0-32 [...] 5.0-8.5 Encounters Code Encounter Date Provider Facility CPT-54368 Level 4 Est. Patient 11:08:12 [employer] Checo Conklin MD [facility] CPT-22113 Level 4 Est. Patient 16:06:48 [employer] Checo Conklin MD [facility] CPT-69481 Level 3 Est. Patient 09:11:49 CDT Efren Nicolas almendarez [facility] CPT-33563 Level 2 Est. Patient 19:53:27 CDT Tanner hill MD [facility] CPT-72127 Level 3 Est. Patient 09:15:34 CDT Americomarine Nicolas almendarez [facility] CPT-74200 Level 3 Est. Patient 11:28:51 [employer] Efren Nicolas almendarez [facility] CPT-70256 Level 4 Est. Patient 13:55:46 [employer] Checo Conklin MD [facility] CPT-70680 Level 4 Est. Patient 17:10:53 CDT Checo Conklin MD [facility] CPT-41335 Level 3 Est. Patient 15:56:22 CDT Checo Conklin MD [facility] CPT-92987 Level 3 Est. Patient 15:29:07 CDT Checo Conklin MD [facility] CPT-48420 Level 3 Est. Patient 14:38:41 CDT Checo Conklin MD [facility] CPT-74191 Level 3 Est. Patient 15:22:03 [employer] Thomas reynolds DO [facility] CPT-19832 Level 3 Est. Patient 13:34:17 [employer] Checo Conklin MD [facility] CPT-64479 Level 3 Est. Patient 12:29:32 CDT Dangelo arroyo MD [facility] CPT-37770 Level 3 Est. Patient 16:53:02 CDT Checo Conklin MD [facility] CPT-92802 Level 3 Est. Patient 16:37:13 CDT Checo Conklin MD [facility] CPT-20279 Level 3 Est. Patient 16:16:59 CDT Paul Hamlin MD [facility] CPT-63612 Level 3 Est. Patient 14:20:13 CDT Dangelo arroyo MD [facility] CPT-26987 Level 4 Est. Patient 11:29:33 CDT Checo Conklin MD [facility] CPT-88926 Level 3 Est. Patient 17:08:31 CDT Checo Conklin MD [facility] CPT-87430 Level 3 Est. Patient 16:50:42 [employer] Checo Conklin MD [facility] CPT-28987 Level 4 Est. Patient 09:26:08 [employer] Checo Conklin MD [facility] CPT-40925 Level 3 Est. Patient 11:37:10 CDT Checo Conklin MD [facility] CPT-31458 Level 4 Est. Patient 14:07:38 CDT Checo Conklin MD [facility] CPT-92727 Level 3 Est. Patient 09:54:41 CDT Checo Conklin MD [facility] CPT-95067 Level 3 Est. Patient 11:10:54 CDT Paul Hamlin MD [facility] CPT-23674 Level 3 Est. Patient 14:16:56 [employer] Checo Conklin MD [facility] CPT-63130 Level 3 Est. Patient 11:04:11 [employer] Checo Conklin MD [facility] CPT-79474 Level 3 Est. Patient 17:09:26 CDT Dangelo arroyo MD [facility] CPT-65517 Level 3 Est. Patient 16:54:37 CDT Checo Conklin MD [facility] Procedures Code Procedure Name Date Entry Date Standard Desc ription CPT-20128 UA w micro - LAB USE ONLY 17:06:46 CDT 2015 CPT-67692 BHCG Qual - LAB USE ONLY 17:06:46 CDT 05/06 CPT-86186 CMP - LAB USE ONLY 17:06:46 CDT CPT-24474 CBC with Diff - LAB USE ONLY 17:06:45 CDT 2 CPT-75508 Venipuncture Draw Fee 17:06:45 CDT CPT-LR Lesion Removal 19:53:27 CDT CPT-OV Office Visit 11:31:28 CDT CPT-33571 Tubersol 09:39:29 CDT CPT-J2550 Phenergan 25 mg (Promethazine) 13:59:02 [employer] CPT-J1885 Toradol 60 mg (Ketorolac) 13:59:02 [employer] 2012
--- OUTSIDE RECORDS SUMMARY | 2019-09-29 02:26 | XMS REPORT | Clinical Summary ---
Author Author Admin, Bethany Ayala [email or web address] [facility] Address Unknown Phone Unavailable Allergies, Adverse Reactions, [...] TABS 1.5 po qd PAROX ETINE HCL 18098889485 Active Checo Conklin MD Active FLUTICASONE PROPIONATE 50 MCG/ACT NASAL SUSP 2 sprays/ nostril qd PRN Congestion/Allergies FLUTICASONE PROPIONATE 0329510553 5 No Longer Active Checo Conklin MD Active AMOXICILLIN 500 MG ORAL CAPS 2 po BID x 10 days 09/12 AMOXICILLIN 60706143858 No Longer Active Checo Conklin MD Activ e MIRALAX ORAL POWD 8.5 to 17g po qd PRN Constipation POLYETHYLENE GLYCOL 3350 12020369547 Active Checo Conklin MD Active CLARITIN 10 MG TAB 1 tablet by mouth daily as needed for allergi es LORATADINE 42155637331 No Longer Active Checo Conklin MD Active BACTRIM DS 800-160 MG TAB 1 tab by mouth twice daily 2 TRIMETHOPRIM-SULFAMETHOXAZOLE 73008649937 No Longer Active Tanner Carrillo MD Active DIFLUCAN 150 MG TAB 1 tablet by mouth qod FLUCO NAZOLE 77387431294 No Longer Active Efren Medel APRN Active AZITHROMYCIN 250 MG TABS 2 po qd x 1 day, then 1 po qd x 4 days AZITHROMYCIN 15499574320 No Longer Active Jilyndsayina Frasandra [employer]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 DEX METHYLPHENIDATE HCL 68026608868 Active Checo Conklin MD Active MAGNESIUM CITRATE 1.745 GM/30ML ORAL SOLN 150ml po BID PRN C onstipation MAGNESIUM CITRATE 08566723993 No Longer Active Checo Conklin MD Active BACTROBAN 2 % CREAM Apply to affected area BID for up to 10 days MUPIROCIN CALCIUM 68432611241 No Longer Active Checo Conklin MD Active HYDROCODONE-ACETAMINOPHEN 5-325 MG TABS 1 tab by mouth every 6 hours as needed HYDROCODONE-ACETAMINOPHEN 62771909334 No Longer Activ e Checo Conklin MD Active IBUPROFEN 800 MG TABS 1 tab every 8 hours with food 20 31/03/21 IBUPROFEN 01185538594 No Longer Active Checo Conklin MD Activ e DIFLUCAN 150 MG TAB 1 tablet by mouth if needed, hold until symptoms start FLUCONAZOLE 99936811567 No Longer Active Checo Ortiz MD Active BACTRIM DS 800-160 MG TAB 1 tab by mouth twice daily 2 TRIMETHOPRIM-SULFAMETHOXAZOLE 42427644405 No Longer Active Corry leong LPN Active HYDROCODONE-ACETAMINOPHEN 5-325 MG TABS 0.5 to 1 tab b y mouth every 6 hours as needed HYDROCODONE-ACETAMINOPHEN 34732658676 No Longer Active Checo Conklin MD Active ONDANSETRON [address] one tablet on tongue and allow to dissolve every 6 hours as needed for vomitting ONDANSETRO N 04459550981 No Longer Active Checo Conklin MD Active COMPRO 25 MG RECTAL SUPP insert or apply one supposit ory rectally as directed every 12 hours as needed for nausea PROCHLORPERA ZINE 82501720219 No Longer Active Checo Conklin MD Active SUMATRIPTAN SUCCINATE 100 MG ORAL TABS Take one PRN for migrane SUMATRIPTAN SUCCINATE 21403417851 No Longer Active Checo Conklin MD Active TRAVEL SICKNESS 25 MG ORAL CHEW chew and swallow one t ablet every 6 hours as needed MECLIZINE HCL 44427116657 No Longer Active Joe Conklin MD Active BUPROPION HCL ER (SR) 100 MG ORAL [id number] take one t ablet by mouth one time daily for one week then take 1 two times daily BUPROPION HCL 30871626439 No Longer Active Checo Conklin MD Activ e TERBINAFINE HCL 250 MG ORAL TABS take one table PO one time abran y TERBINAFINE HCL 59612478032 No Longer Active Checo Conklin MD Active METOCLOPRAMIDE HCL 10 MG ORAL TABS take one PO tid PRN nausea 20 29/12/14 METOCLOPRAMIDE HCL 48100954292 No Longer Active Checo Conklin MD Active DICLOFENAC SODIUM 75 MG TBEC 1 tablet by mouth twice daily P RN Knee pain DICLOFENAC SODIUM 26008099323 No Longer Active Checo Conklin MD Active LAMISIL 250 MG TAB 1 po qd TERBINAFINE HCL 548 46717672 No Longer Active Checo Conklin MD Active REGLAN 10 MG TAB 1 po TID PRN Nausea METOCLOPRA MIDE HCL 67378899563 No Longer Active Checo Conklin MD Active CELEXA 20 MG TABS 1 tablet by mouth daily CITALOPRAM HYDROBROMIDE 20710562606 No Longer Active Checo Conklin MD Activ e AZITHROMYCIN 250 MG TABS 2 po qd x 1 day, then 1 po qd x 4 days AZITHROMYCIN 52801142586 No Longer Active Checo Conklin MD Active HYDROCODONE-ACETAMINOPHEN 5-325 MG TABS 1 po q 6hr PRN Pain 2013 HYDROCODONE-ACETAMINOPHEN 18510739245 No Longer Active Lenora Conklin MD Active PHENAZOPYRIDINE HCL 200 MG TABS take 1 tab po TID for bladder pa in PHENAZOPYRIDINE HCL 12431414359 No Longer Active Checo Joshua Active CIPRO 500 MG TAB 1 tablet by mouth twice daily CIPROFLOXACIN HCL 67279909476 No Longer Active Dangelo Rangel MD Active HYDROCODONE-ACETAMINOPHEN 5-325 MG TABS 1/2 to 1 po q 4 hour s prn cough HYDROCODONE-ACETAMINOPHEN 29739316978 No Longer Activ e Dangelo Rangel MD Active BACTRIM DS 800-160 MG TABS 1 po BID x 7 days 0 SULFAMETHOXAZOLE-TRIMETHOPRIM 23492640297 No Longer Active Checo Conklin MD Active PREDNISONE 20 MG TAB 2 tabs daily for 3 days, 1 t ab daily for 3 days, 1/2 tab daily for 2 days PREDNISONE 25020040939 No Longer Active Checo Conklin MD Active TRIAMCINOLONE ACETONIDE 0.1 % OINT Apply to affected a reas TID for up to 2 weeks TRIAMCINOLONE ACETONIDE 18041901108 No Longer A ctive Checo Conklin MD Active CEFDINIR 300 MG CAPS by mouth twice a day CEFDI JAZZY 02044028768 No Longer Active Dangelo Rangel MD Active BUPROPION HCL (SMOKING DETER) 150 MG [id number] 1 a day for 1 week then 1 twice a day BUPROPION HCL (SMOKING DETER) 84887216856 No Lo nger Active Checo Conklin MD Active SIMVASTATIN 20 MG TABS 1 po qd SIMVASTATIN 9214779789 5 Active Checo Conklin MD Active CHANTIX STARTING MONTH KARTHIK 0.5 MG X 11 & 1 MG X 42 TAB S 0.5mg daily for 3 days, then 0.5mg BID for 4 days, then 1mg BID VARENICLINE TARTRATE 90756162590 No Longer Active Checo Conklin MD Activ e XANAX 0.5 MG TABS 1 po BID PRN anxiety ALPRAZOLAM 26827103144 Active Checo Conklin MD Active CONCERTA 18 MG CR-TABS 1 po q a.m. METHYLPHENID ATE HCL 79092485289 No Longer Active Checo Conklin MD Active AMBIEN 5 MG TAB 1 po qHS PRN Insomnia ZOLPIDEM TARTRATE 32471214152 Active Checo Conklin MD Active TRAZODONE HCL 100 MG TAB 0.5 to 1 po qHS PRN Insomnia TRAZODONE HCL 61341378256 No Longer Active Checo Conklin MD Acti ve FIORICET 325-50-40 MG TAB 1 tablet by mouth four times daily as needed [id number] 50572132459 No Longer Active Checo Conklin MD Active PHENERGAN CREAM* 25mg applied to wrist q6hr PRN Nausea PHENERGAN CREAM* No Longer Active Checo Conklin MD A ctive FLONASE 50 MCG/ACT SUSP 1 spray each nostril am and hs FLUTICASONE PROPIONATE 80052355050 No Longer Active Checo Conklin MD Activ e ANTIPYRINE-BENZOCAINE 5.4-1.4 % SOLN 1-2 drops in affected ear BENZOCAINE-ANTIPYRINE 89692137418 No Longer Active Checo Conklin MD Active CEFDINIR 300 MG CAPS 1 po bid CEFDINIR 35692738 120 No Longer Active Checo Conklin MD Active PREDNISONE 20 MG TAB 2 tabs daily for 3 days, 1 t ab daily for 3 days, 1/2 tab daily for 2 days PREDNISONE 52108062904 No Longer Active Aracelis Conklin MD Active AZITHROMYCIN 250 MG TABS 2 po qd x 1 day, then 1 po qd x 4 days AZITHROMYCIN 83671612310 No Longer Active Checo Conklin MD Active PREDNISONE 20 MG TAB 2 tabs daily for 3 days, 1 t ab daily for 3 days, 1/2 tab daily for 2 days PREDNISONE 84744715565 No Longer Active Checo Conklin MD Active ZITHROMAX Z-KARTHIK 250 MG TABS 2 today, then 1 daily for 4 days 201 09/18/28 AZITHROMYCIN 00370199734 No Longer Active Paul Hamlin MD Active FOCALIN XR 10 MG [id number] 1 po q a.m. D EXMETHYLPHENIDATE HCL 92665107291 No Longer Active Paul Hamlin MD Activ e PERCOCET 10-325 MG TABS 1 tablet every 6 hours as needed for pain OXYCODONE-ACETAMINOPHEN 52802778760 No Longer Active Paul Hamlin MD Active LORTAB 5 5-500 MG TABS 1/2 to 1 tablet by mouth flaquito ry 4 hours as needed for pain HYDROCODONE-ACETAMINOPHEN 80254163524 No Longer Active Checo Conklin MD Active FOCALIN XR 15 MG [id number] 1 po q a.m. D EXMETHYLPHENIDATE HCL 98583949022 No Longer Active Checo Conklin MD Activ e ZOFRAN ODT 4 MG TBDP 1 po q6hr PRN Nausea ONDAN SETRON 17347104486 No Longer Active Checo Conklin MD Active PERCOCET 5-325 MG TABS 1 tablet by mouth every 6 hours as needed OXYCODONE-ACETAMINOPHEN 89582380641 No Longer Active Cheoc Conklin MD Active PYRIDIUM 200 MG TABS take 1 tab po TID prn urinary pain. 0 PHENAZOPYRIDINE HCL 02398738450 No Longer Active Checo Conklin MD Active FLUCONAZOLE 150 MG TABS take 1 tab po qday once 0 04/06 FLUCONAZOLE 05354724979 No Longer Active Dangelo Rangel MD Acti ve CIPRO 500 MG TAB 1 tablet by mouth twice daily CIPROFLOXACIN HCL 42558975736 No Longer Active Dangelo Rangel MD Active PYRIDIUM 200 MG TABS take 1 tab po TID prn urinary pain. 0 PYRIDIUM 200 MG TABS 0214309 PHENAZOPYRIDINE HCL Inactive PERCOCET 5-325 MG TABS 1 tablet by mouth every 6 hours as needed PERCOCET 5-325 MG TABS 2852535 OXYCODONE-ACETAMINOPHEN I nactive ZOFRAN ODT 4 MG TBDP 1 po q6hr PRN Nausea ZOFRAN ODT 4 MG TBDP 336171 ONDANSETRON Inactive FOCALIN XR 15 MG [id number] 1 po q a.m. F OCALIN XR 15 MG [id number] DEXMETHYLPHENIDATE HCL Inactive LORTAB 5 5-500 MG TABS 1/2 to 1 tablet by mouth flaquito ry 4 hours as needed for pain LORTAB 5 5-500 MG TABS HYDROCODONE-A CETAMINOPHEN Inactive PERCOCET 10-325 MG TABS 1 tablet every 6 hours as needed for pain PERCOCET 10-325 MG TABS 3951670 OXYCODONE-ACETAMINOPHEN Inactive FOCALIN XR 10 MG [id number] 1 po q a.m. F OCALIN XR 10 MG [id number] DEXMETHYLPHENIDATE HCL Inactive CEFDINIR 300 MG CAPS 1 po bid CEFDINIR 300 MG CAPS 20 0346 CEFDINIR Inactive ANTIPYRINE-BENZOCAINE 5.4-1.4 % SOLN 1-2 drops in affected ear ANTIPYRINE-BENZOCAINE 5.4-1.4 % SOLN BENZOCAINE-ANTIPYRINE I nactive FLONASE 50 MCG/ACT SUSP 1 spray each nostril am and hs FLONASE 50 MCG/ACT SUSP 7446843 FLUTICASONE PROPIONATE Inactive PHENERGAN CREAM* 25mg applied to wrist q6hr PRN Nausea PHENERGAN CREAM* Inactive FIORICET 325-50-40 MG TAB 1 tablet by mouth four times daily as needed FIORICET 325-50-40 MG TAB ACETAMINOPHEN-C AFF-BUTALBITAL Inactive TRAZODONE HCL 100 MG TAB 0.5 to 1 po qHS PRN Insomnia TRAZODONE HCL 100 MG TAB 896465 TRAZODONE HCL Inactive CONCERTA 18 MG CR-TABS [...] s prn cough HYDROCODONE-ACETAMINOPHEN 5-325 MG TABS 211722 HYDROCODONE-ACETAMINOPHEN Inactive PHENAZOPYRIDINE HCL 200 MG TABS take 1 tab po TID for bladder pa in PHENAZOPYRIDINE HCL 200 MG TABS 4983043 PHENAZOPYRIDINE HCL Inactive HYDROCODONE-ACETAMINOPHEN 5-325 MG TABS 1 po q 6hr PRN Pain 2013 HYDROCODONE-ACETAMINOPHEN 5-325 MG TABS 114613 HYDROCODONE-ACETAMINOPHEN Inactive CELEXA 20 MG TABS 1 tablet by mouth daily CELEXA 20 MG TABS 145471 CITALOPRAM HYDROBROMIDE Inactive REGLAN 10 MG TAB 1 po TID PRN Nausea REGLAN 10 MG TAB 600034 METOCLOPRAMIDE HCL Inactive LAMISIL 250 MG TAB 1 po qd LAMISIL 250 MG TAB 430439 TERBINAFINE HCL Inactive DICLOFENAC SODIUM 75 MG TBEC 1 tablet by mouth twice daily P RN Knee pain DICLOFENAC SODIUM 75 MG TBEC 769984 DICLOFENAC S ODIUM Inactive METOCLOPRAMIDE HCL 10 MG ORAL TABS take one PO tid PRN nausea 20 29/12/14 METOCLOPRAMIDE HCL 10 MG ORAL TABS 233196 METOCLOPRAMID E HCL Inactive TERBINAFINE HCL 250 MG ORAL TABS take one table PO one time abran y TERBINAFINE HCL 250 MG ORAL TABS 586844 TERBINAFINE HCL Inactive BUPROPION HCL ER (SR) 100 MG ORAL [id number] take one t ablet by mouth one time daily for one week then take 1 two times daily BUPROPION HCL ER (SR) 100 MG ORAL [id number] BUPROPION HCL Inacti ve TRAVEL SICKNESS 25 MG ORAL CHEW chew and swallow one t ablet every 6 hours as needed TRAVEL SICKNESS 25 MG ORAL CHEW 108077 MECLIZINE HCL Inactive SUMATRIPTAN SUCCINATE 100 MG ORAL TABS Take one PRN for migrane SUMATRIPTAN SUCCINATE 100 MG ORAL TABS 619376 SUMATRIPT AN SUCCINATE Inactive COMPRO 25 MG RECTAL SUPP insert or apply one supposit ory rectally as directed every 12 hours as needed for nausea COMP RO 25 MG RECTAL SUPP 201042 PROCHLORPERAZINE Inactive ONDANSETRON [address] one tablet on tongue and allow to dissolve every 6 hours as needed for vomitting ON DANSETRON 8 MG ORAL TBDP 271600 ONDANSETRON Inactive HYDROCODONE-ACETAMINOPHEN 5-325 MG TABS 0.5 to 1 tab b y mouth every 6 hours as needed HYDROCODONE-ACETAMINOPHEN 5-325 MG TABS 8 72378 HYDROCODONE-ACETAMINOPHEN Inactive BACTRIM DS 800-160 MG TAB 1 tab by mouth twice daily 2 BACTRIM DS 800-160 MG TAB 19820918 TRIMETHOPRIM-SULFAMETHOXAZOLE Inac tive DIFLUCAN 150 MG TAB 1 tablet by mouth if needed, hold until symptoms start DIFLUCAN 150 MG TAB 19760325 FLUCONAZOLE Inactive IBUPROFEN 800 MG TABS 1 tab every 8 hours with food 31/03/21 IBUPROFEN 800 MG TABS 571455 IBUPROFEN Inactive HYDROCODONE-ACETAMINOPHEN 5-325 MG TABS 1 tab by mouth every 6 hours as needed HYDROCODONE-ACETAMINOPHEN 5-325 MG TABS 069504 HYDROCODONE-ACETAMINOPHEN Inactive BACTROBAN 2 % CREAM Apply to affected area BID for up to 10 days BACTROBAN 2 % CREAM 501229 MUPIROCIN CALCIUM Inactive MAGNESIUM CITRATE 1.745 GM/30ML ORAL SOLN 150ml po BID PRN C onstipation MAGNESIUM CITRATE 1.745 GM/30ML ORAL SOLN 982258 0 MAGNESIUM CITRATE Inactive DIFLUCAN 150 MG TAB 1 tablet by mouth qod DIFLUCAN 150 MG TAB 484557 FLUCONAZOLE Inactive BACTRIM DS 800-160 MG TAB 1 tab by mouth twice daily 2 BACTRIM DS 800-160 MG TAB 409708 TRIMETHOPRIM-SULFAMETHOXAZOLE Inac tive CLARITIN 10 MG TAB 1 tablet by mouth daily as needed for allergi es CLARITIN 10 MG TAB 154911 LORATADINE Inactive FLUTICASONE PROPIONATE 50 MCG/ACT NASAL SUSP 2 sprays/ nostril qd PRN Congestion/Allergies FLUTICASONE PROPION ATE 50 MCG/ACT NASAL SUSP 3533946 FLUTICASONE PROPIONATE Inactive CIPRO 500 MG TAB 1 tablet by mouth twice daily CIPRO 500 MG TAB 104730 CIPROFLOXACIN HCL Inactive FLUCONAZOLE 150 MG TABS take 1 tab po qday once 04/06 FLUCONAZOLE 150 MG TABS 411871 FLUCONAZOLE Inactive ZITHROMAX Z-KARTHIK 250 MG TABS 2 today, then 1 daily for 4 days 201 09/18/28 ZITHROMAX Z-KARTHIK 250 MG TABS 6363761 AZITHROMYCIN Inac tive PREDNISONE 20 MG TAB 2 tabs daily for 3 days, 1 t ab daily for 3 days, 1/2 tab daily for 2 days PREDNISONE 20 MG TAB 229986 PREDNISON E Inactive AZITHROMYCIN 250 MG TABS 2 po qd x 1 day, then 1 po qd x 4 days AZITHROMYCIN 250 MG TABS 8303418 AZITHROMYCIN Inactiv e PREDNISONE 20 MG TAB 2 tabs daily for 3 days, 1 t ab daily for 3 days, 1/2 tab daily for 2 days PREDNISONE 20 MG TAB 606521 PREDNISON E Inactive CEFDINIR 300 MG CAPS by mouth twice a day CEFDINIR 300 MG CAPS 774020 CEFDINIR Inactive TRIAMCINOLONE ACETONIDE 0.1 % OINT Apply to affected a reas TID for up to 2 weeks TRIAMCINOLONE ACETONIDE 0.1 % OINT 919613 6 TRIAMCINOLONE ACETONIDE Inactive PREDNISONE 20 MG TAB 2 tabs daily for 3 days, 1 t ab daily for 3 days, 1/2 tab daily for 2 days PREDNISONE 20 MG TAB 590371 PREDNISON E Inactive BACTRIM DS 800-160 MG TABS 1 po BID x 7 days 0 BACTRIM DS 800-160 MG TABS 141258 SULFAMETHOXAZOLE-TRIMETHOPRIM Inactive CIPRO 500 MG TAB 1 tablet by mouth twice daily CIPRO 500 MG TAB 526556 CIPROFLOXACIN HCL Inactive AZITHROMYCIN 250 MG TABS 2 po qd x 1 day, then 1 po qd x 4 days AZITHROMYCIN 250 MG TABS 4830701 AZITHROMYCIN Inactiv e FLAGYL 500 MG TAB 1 tablet by mouth bid FLAGYL 500 MG TAB 121081 METRONIDAZOLE Inactive AZITHROMYCIN 250 MG TABS 2 po qd x 1 day, then 1 po qd x 4 days AZITHROMYCIN 250 MG TABS 0244449 AZITHROMYCIN Inactiv e AMOXICILLIN 500 MG ORAL CAPS 2 po BID x 10 days 09/12 AMOXICILLIN 500 MG ORAL CAPS 911266 AMOXICILLIN Inactive Immunizations Vaccine Administration Date Value [...] Report: CBC W/DIFF, Comp. Metabolic Panel, [place] [facility] [place] Chemistry sodium, serum 139 mmol/L 585-286 3005/10/21 carbon dioxide, venous blood 33.5 mmol/L 21.0-32 [...] Report: CBC W/DIFF, Comp. Metabolic Panel, Qual [facility] [place] - Hematology leukocyte count, blood 7.9 10^3/MM^3 [...] PANEL - Chemistry cholesterol, serum 192 mg/dL 509-424 1849/02/20 HDL cholesterol, serum 31 mg/dL > OR [...] 11 .0-15.0 platelet count 218 THOUSAND/UL 10*3/mm3 105-673 6891/02/20 mean platelet volume 9.7 fL 7.5-12.5 Lab Report: Chlamydia/GC APTIMA/08564 - Lab chlamydia DNA probe NOT DETECTED NOT DETECTED Lab Report: Chlamydia/GC [facility]/97433 - Microbiology Neisseria gonorrhoeae DNA probe NOT [...] 5.0-8.5 Encounters Code Encounter Date Provider Facility CPT-75547 Level 3 Est. Patient 13:05:44 CDT Paul Hamlin MD [facility] CPT-60324 Level 3 Est. Patient 11:29:55 CDT Checo Conklin MD [facility] CPT-65331 Level 4 Est. Patient 11:08:12 CLAY MODELER Checo Conklin MD [facility] CPT-46168 Level 4 Est. Patient 16:06:48 CLAY MODELER Checo Conklin MD [facility] CPT-71421 Level 3 Est. Patient 09:11:49 CDT Efren almendarez [facility] CPT-84719 Level 2 Est. Patient 19:53:27 CDT Tanner hill MD [facility] CPT-15549 Level 3 Est. Patient 09:15:34 CDT Efren almendarez [facility] CPT-34376 Level 3 Est. Patient 11:28:51 CLAY MODELER Efren almendarez [facility] CPT-04148 Level 4 Est. Patient 13:55:46 CLAY MODELER Checo Conklin MD [facility] CPT-82899 Level 4 Est. Patient 17:10:53 CDT Checo Conklin MD [facility] CPT-28778 Level 3 Est. Patient 15:56:22 CDT Checo Conklin MD [facility] CPT-06284 Level 3 Est. Patient 15:29:07 CDT Checo Conklin MD [facility] CPT-93045 Level 3 Est. Patient 14:38:41 CDT Checo Conklin MD [facility] CPT-89422 Level 3 Est. Patient 15:22:03 CLAY MODELER Thomas reynolds DO [facility] CPT-36997 Level 3 Est. Patient 13:34:17 CLAY MODELER Checo Conklin MD [facility] CPT-86809 Level 3 Est. Patient 12:29:32 CDT Dangelo arroyo MD [facility] CPT-91048 Level 3 Est. Patient 16:53:02 CDT Checo Conklin MD [facility] CPT-13382 Level 3 Est. Patient 16:37:13 CDT Checo Conklin MD [facility] CPT-58253 Level 3 Est. Patient 16:16:59 CDT Paul Hamlin MD [facility] CPT-69846 Level 3 Est. Patient 14:20:13 CDT Dangelo arroyo MD [facility] CPT-02447 Level 4 Est. Patient 11:29:33 CDT Checo Conklin MD [facility] CPT-19130 Level 3 Est. Patient 17:08:31 CDT Checo Conklin MD [facility] CPT-19974 Level 3 Est. Patient 16:50:42 CLAY MODELER Checo Conklin MD [facility] CPT-79662 Level 4 Est. Patient 09:26:08 CLAY MODELER Checo Conklin MD [facility]-78860 Level 3 Est. Patient 11:37:10 CDT Checo Conklin MD [facility] CPT-15839 Level 4 Est. Patient 14:07:38 CDT Checo Conklin MD [facility] CPT-68032 Level 3 Est. Patient 09:54:41 CDT Checo Conklin MD [facility] CPT-40288 Level 3 Est. Patient 11:10:54 CDT Paul Hamlin MD [facility] CPT-64594 Level 3 Est. Patient 14:16:56 CLAY MODELER Checo Conklin MD [facility] CPT-02380 Level 3 Est. Patient 11:04:11 CLAY MODELER Checo Conklin MD [facility] CPT-72331 Level 3 Est. Patient 17:09:26 CDT Dangelo arroyo MD [facility] CPT-99854 Level 3 Est. Patient 16:54:37 CDT Checo Conklin MD [facility] Procedures Code Procedure Name Date Entry Date Standard Desc ription CPT-16560 UA w micro - LAB USE ONLY 17:06:46 CDT 2015 CPT-18719 [facility]CG Qual - LAB USE ONLY 17:06:46 CDT 05/06 CPT-93295 CMP - LAB USE ONLY 17:06:46 CDT CPT-95531 CBC with Diff - LAB USE ONLY 17:06:45 CDT 2 CPT-56680 Venipuncture Draw Fee 17:06:45 CDT CPT-LR Lesion Removal 19:53:27 CDT CPT-OV Office Visit 11:31:28 CDT CPT-91755 Tubersol 09:39:29 CDT CPT-J2550 Phenergan 25 mg (Promethazine) 13:59:02 CLAY MODELER CPT-J1885 Toradol 60 mg (Ketorolac) 13:59:02 CLAY MODELER 2012
--- OUTSIDE RECORDS SUMMARY | 2019-09-29 02:26 | XMS REPORT | Clinical Summary ---
Author Author Admin, Bethany Gonzales Organization [facility] Address Unknown Phone Unavailable Allergies, Adverse Reactions, [...] Conklin MD 201 08/27/26 CONCUSSION ICD-850.9 Inactive Cehco Joshua UTI ICD-599.0 Inactive Checo Conklin MD [...] mouth every 6 hours as needed HYDROCODONE-ACETAMINOPHEN 94688494852 Active Checo Conklin MD Active DICLOFENAC SODIUM 75 MG TBEC 1 tablet by mouth twice daily P RN Knee pain DICLOFENAC SODIUM 35586390172 Active Checo Conklin MD Active LAMISIL 250 MG TAB 1 po qd TERBINAFINE HCL 548 06159443 No Longer Active Checo Conklin MD Active REGLAN 10 MG TAB 1 po TID PRN Nausea METOCLOPRA MIDE HCL 45733734268 No Longer Active Checo Conklin MD Active CELEXA 20 MG TABS 1 tablet by mouth daily CITALOPRAM HYDROBROMIDE 71684916201 No Longer Active Checo Conklin MD Activ e AZITHROMYCIN 250 MG TABS 2 po qd x 1 day, then 1 po qd x 4 days AZITHROMYCIN 04060641182 No Longer Active Checo Conklin MD Active HYDROCODONE-ACETAMINOPHEN 5-325 MG TABS 1 po q 6hr PRN Pain 2013 HYDROCODONE-ACETAMINOPHEN 39231822691 No Longer Active Lenora Conklin MD Active PHENAZOPYRIDINE HCL 200 MG TABS take 1 tab po TID for bladder pa in PHENAZOPYRIDINE HCL 62742914850 No Longer Active Checo Joshua Active CIPRO 500 MG TAB 1 tablet by mouth twice daily CIPROFLOXACIN HCL 49869673609 No Longer Active Dangelo Rangel MD Active HYDROCODONE-ACETAMINOPHEN 5-325 MG TABS 1/2 to 1 po q 4 hour s prn cough HYDROCODONE-ACETAMINOPHEN 84079918524 No Longer Activ e Dangelo Rangel MD Active BACTRIM DS 800-160 MG TABS 1 po BID x 7 days 0 SULFAMETHOXAZOLE-TRIMETHOPRIM 09908962500 No Longer Active Checo Conklin MD Active PREDNISONE 20 MG TAB 2 tabs daily for 3 days, 1 t ab daily for 3 days, 1/2 tab daily for 2 days PREDNISONE 95799405167 No Longer Active Checo Conklin MD Active TRIAMCINOLONE ACETONIDE 0.1 % OINT Apply to affected a reas TID for up to 2 weeks TRIAMCINOLONE ACETONIDE 17263205852 No Longer A ctive Checo Coknlin MD Active CEFDINIR 300 MG CAPS by mouth twice a day CEFDI JAZZY 34551212922 No Longer Active Dangelo Rangel MD Active BUPROPION HCL (SMOKING DETER) 150 MG [id number] 1 a day for 1 week then 1 twice a day BUPROPION HCL (SMOKING DETER) 83123333254 No Lo nger Active Checo Conklin MD Active SIMVASTATIN 20 MG TABS 1 po qd SIMVASTATIN 6531876028 5 Active Checo Conklin MD Active CHANTIX STARTING MONTH KARTHIK 0.5 MG X 11 & 1 MG X 42 TAB S 0.5mg daily for 3 days, then 0.5mg BID for 4 days, then 1mg BID VARENICLINE TARTRATE 80677430401 No Longer Active Checo Conklin MD Activ e XANAX 0.5 MG TABS 1 po BID PRN anxiety ALPRAZOLAM 16791687616 Active Checo Conklin MD Active CONCERTA 18 MG CR-TABS 1 po q a.m. METHYLPHENID ATE HCL 06556497370 No Longer Active Checo Conklin MD Active AMBIEN 5 MG TAB 1 po qHS PRN Insomnia ZOLPIDEM TARTRATE 38643836455 Active Checo Conklin MD Active TRAZODONE HCL 100 MG TAB 0.5 to 1 po qHS PRN Insomnia TRAZODONE HCL 20824676527 No Longer Active Checo Conklin MD Acti ve FIORICET 325-50-40 MG TAB 1 tablet by mouth four times daily as needed [id number] 73703474076 No Longer Active Checo Conklin MD Active PHENERGAN CREAM* 25mg applied to wrist q6hr PRN Nausea PHENERGAN CREAM* No Longer Active Checo Gonzales ctive FLONASE 50 MCG/ACT SUSP 1 spray each nostril am and hs FLUTICASONE PROPIONATE 95270596392 No Longer Active Checo Conklin MD Activ e ANTIPYRINE-BENZOCAINE 5.4-1.4 % SOLN 1-2 drops in affected ear BENZOCAINE-ANTIPYRINE 64931850912 No Longer Active Checo Conklin MD Active CEFDINIR 300 MG CAPS 1 po bid CEFDINIR 58282294 120 No Longer Active Checo Conklin MD Active PREDNISONE 20 MG TAB 2 tabs daily for 3 days, 1 t ab daily for 3 days, 1/2 tab daily for 2 days PREDNISONE 11122077840 No Longer Active Aracelis Conklin MD Active AZITHROMYCIN 250 MG TABS 2 po qd x 1 day, then 1 po qd x 4 days AZITHROMYCIN 94894162866 No Longer Active Checo Conklin MD Active PREDNISONE 20 MG TAB 2 tabs daily for 3 days, 1 t ab daily for 3 days, 1/2 tab daily for 2 days PREDNISONE 24216216207 No Longer Active Checo Conklin MD Active ZITHROMAX Z-KARTHIK 250 MG TABS 2 today, then 1 daily for 4 days 201 09/18/28 AZITHROMYCIN 97909398247 No Longer Active Paul Hamlin MD Active FOCALIN XR 10 MG [id number] 1 po q a.m. D EXMETHYLPHENIDATE HCL 22801475101 No Longer Active Paul Hamlin MD Activ e PERCOCET 10-325 MG TABS 1 tablet every 6 hours as needed for pain OXYCODONE-ACETAMINOPHEN 42167667326 No Longer Active Paul Hamlin MD Active LORTAB 5 5-500 MG TABS 1/2 to 1 tablet by mouth flaquito ry 4 hours as needed for pain HYDROCODONE-ACETAMINOPHEN 78749986567 No Longer Active Checo Conklin MD Active FOCALIN XR 15 MG [id number] 1 po q a.m. D EXMETHYLPHENIDATE HCL 10988916104 No Longer Active Checo Conklin MD Activ e ZOFRAN ODT 4 MG TBDP 1 po q6hr PRN Nausea ONDAN SETRON 81524298843 No Longer Active Checo Conklin MD Active PERCOCET 5-325 MG TABS 1 tablet by mouth every 6 hours as needed OXYCODONE-ACETAMINOPHEN 05723102764 No Longer Active Checo Conklin MD Active PYRIDIUM 200 MG TABS take 1 tab po TID prn urinary pain. 0 PHENAZOPYRIDINE HCL 89265297079 No Longer Active Checo Conklin MD Active FLUCONAZOLE 150 MG TABS take 1 tab po qday once 04/06 FLUCONAZOLE 20210899544 No Longer Active Dangelo Rangel MD Acti ve CIPRO 500 MG TAB 1 tablet by mouth twice daily CIPROFLOXACIN HCL 50927473290 No Longer Active Dangelo Rangel MD Active PYRIDIUM 200 MG TABS take 1 tab po TID prn urinary pain. 0 PYRIDIUM 200 MG TABS 9568471 PHENAZOPYRIDINE HCL Inactive PERCOCET 5-325 MG TABS 1 tablet by mouth every 6 hours as needed PERCOCET 5-325 MG TABS 7997283 OXYCODONE-ACETAMINOPHEN I nactive ZOFRAN ODT 4 MG TBDP 1 po q6hr PRN Nausea ZOFRAN ODT 4 MG TBDP 592669 ONDANSETRON Inactive FOCALIN XR 15 MG [id number] 1 po q a.m. F OCALIN XR 15 MG [id number] DEXMETHYLPHENIDATE HCL Inactive LORTAB 5 5-500 MG TABS 1/2 to 1 tablet by mouth flaquito ry 4 hours as needed for pain LORTAB 5 5-500 MG TABS HYDROCODONE-A CETAMINOPHEN Inactive PERCOCET 10-325 MG TABS 1 tablet every 6 hours as needed for pain PERCOCET 10-325 MG TABS 2288569 OXYCODONE-ACETAMINOPHEN Inactive FOCALIN XR 10 MG [id number] 1 po q a.m. F OCALIN XR 10 MG [id number] DEXMETHYLPHENIDATE HCL Inactive CEFDINIR 300 MG CAPS 1 po bid CEFDINIR 300 MG CAPS 20 0346 CEFDINIR Inactive ANTIPYRINE-BENZOCAINE 5.4-1.4 % SOLN 1-2 drops in affected ear ANTIPYRINE-BENZOCAINE 5.4-1.4 % SOLN 768100 BENZOCAINE-ANTIPYRINE I nactive FLONASE 50 MCG/ACT SUSP 1 spray each nostril am and hs FLONASE 50 MCG/ACT SUSP 062497 FLUTICASONE PROPIONATE Inactive PHENERGAN CREAM* 25mg applied to wrist q6hr PRN Nausea PHENERGAN CREAM* Inactive FIORICET 325-50-40 MG TAB 1 tablet by mouth four times daily as needed FIORICET 325-50-40 MG TAB ACETAMINOPHEN-C AFF-BUTALBITAL Inactive TRAZODONE HCL 100 MG TAB 0.5 to 1 po qHS PRN Insomnia TRAZODONE HCL 100 MG TAB 614750 TRAZODONE HCL Inactive CONCERTA 18 MG CR-TABS [...] s prn cough HYDROCODONE-ACETAMINOPHEN 5-325 MG TABS 527851 HYDROCODONE-ACETAMINOPHEN Inactive PHENAZOPYRIDINE HCL 200 MG TABS take 1 tab po TID for bladder pa in PHENAZOPYRIDINE HCL 200 MG TABS 8766994 PHENAZOPYRIDINE HCL Inactive HYDROCODONE-ACETAMINOPHEN 5-325 MG TABS 1 po q 6hr PRN Pain 2013 HYDROCODONE-ACETAMINOPHEN 5-325 MG TABS 504610 HYDROCODONE-ACETAMINOPHEN Inactive CELEXA 20 MG TABS 1 tablet by mouth daily CELEXA 20 MG TABS 877545 CITALOPRAM HYDROBROMIDE Inactive REGLAN 10 MG TAB 1 po TID PRN Nausea REGLAN 10 MG TAB 709067 METOCLOPRAMIDE HCL Inactive LAMISIL 250 MG TAB 1 po qd LAMISIL 250 MG TAB 737919 TERBINAFINE HCL Inactive CIPRO 500 MG TAB 1 tablet by mouth twice daily CIPRO 500 MG TAB 824410 CIPROFLOXACIN HCL Inactive FLUCONAZOLE 150 MG TABS take 1 tab po qday once 04/06 FLUCONAZOLE 150 MG TABS 627349 FLUCONAZOLE Inactive ZITHROMAX Z-KARTHIK 250 MG TABS 2 today, then 1 daily for 4 days 201 09/18/28 ZITHROMAX Z-KARTHIK 250 MG TABS 9059686 AZITHROMYCIN Inac tive PREDNISONE 20 MG TAB 2 tabs daily for 3 days, 1 t ab daily for 3 days, 1/2 tab daily for 2 days PREDNISONE 20 MG TAB 648659 PREDNISON E Inactive AZITHROMYCIN 250 MG TABS 2 po qd x 1 day, then 1 po qd x 4 days AZITHROMYCIN 250 MG TABS 7577065 AZITHROMYCIN Inactiv e PREDNISONE 20 MG TAB 2 tabs daily for 3 days, 1 t ab daily for 3 days, 1/2 tab daily for 2 days PREDNISONE 20 MG TAB 147330 PREDNISON E Inactive CEFDINIR 300 MG CAPS by mouth twice a day CEFDINIR 300 MG CAPS 725694 CEFDINIR Inactive TRIAMCINOLONE ACETONIDE 0.1 % OINT Apply to affected a reas TID for up to 2 weeks TRIAMCINOLONE ACETONIDE 0.1 % OINT 599768 6 TRIAMCINOLONE ACETONIDE Inactive PREDNISONE 20 MG TAB 2 tabs daily for 3 days, 1 t ab daily for 3 days, 1/2 tab daily for 2 days PREDNISONE 20 MG TAB 828018 PREDNISON E Inactive BACTRIM DS 800-160 MG TABS 1 po BID x 7 days 0 BACTRIM DS 800-160 MG TABS SULFAMETHOXAZOLE-TRIMETHOPRIM Inactive CIPRO 500 MG TAB 1 tablet by mouth twice daily CIPRO 500 MG TAB 478413 CIPROFLOXACIN HCL Inactive AZITHROMYCIN 250 MG TABS 2 po qd x 1 day, then 1 po qd x 4 days AZITHROMYCIN 250 MG TABS 1336652 AZITHROMYCIN Inactiv e Immunizations Vaccine Administration Date [...] Panel - Chemistry sodium, serum 139 mmol/L 025-900 5537/10/24 potassium, serum 4.1 mmol/L 3.5-5.2 chloride, serum [...] 0.80 mg/dL 0.00-1.00 cholesterol, serum 147 mg/dL 337-993 9521/10/24 triglyceride, serum, fasting 112 mg/dL 30-200 HDL [...] 5.0-8.5 Encounters Code Encounter Date Provider Facility CPT-16812 Level 3 Est. Patient 14:38:41 CDT Checo Conklin MD [facility] CPT-25992 Level 3 Est. 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 Patient 13:34:17 FLOOR INSTALLATION MECHANIC Checo Conklin MD [facility] CPT-41915 Level 3 Est. Patient 12:29:32 CDT Dangelo arroyo MD [facility] CPT-34027 Level 3 Est. Patient 16:53:02 CDT Checo Conklin MD [facility] CPT-57251 Level 3 Est. Patient 16:37:13 CDT Checo Conklin MD [facility] CPT-63502 Level 3 Est. Patient 16:16:59 CDT Paul Hamlin MD [facility] CPT-15674 Level 3 Est. Patient 14:20:13 CDT Dangelo arroyo MD [facility] CPT-87789 Level 4 Est. Patient 11:29:33 CDT Checo Conklin MD [facility] CPT-35396 Level 3 Est. Patient 17:08:31 CDT Checo Conklin MD [facility] CPT-03105 Level 3 Est. Patient 16:50:42 FLOOR INSTALLATION MECHANIC Checo Conklin MD [facility] CPT-68631 Level 4 Est. Patient 09:26:08 FLOOR INSTALLATION MECHANIC Checo Conklin MD [facility] CPT-39282 Level 3 Est. Patient 11:37:10 CDT Checo Conklin MD [facility] CPT-71884 Level 4 Est. Patient 14:07:38 CDT Checo Conklin MD [facility] CPT-09645 Level 3 Est. Patient 09:54:41 CDT Checo Conklin MD [facility] CPT-63609 Level 3 Est. Patient 11:10:54 CDT Paul Hamlin MD [facility] CPT-18307 Level 3 Est. Patient 14:16:56 FLOOR INSTALLATION MECHANIC Checo Conklin MD [facility] CPT-98086 Level 3 Est. Patient 11:04:11 FLOOR INSTALLATION MECHANIC Checo Conklin MD [facility] CPT-36779 Level 3 Est. Patient 17:09:26 CDT Dangelo arroyo MD [facility] CPT-05744 Level 3 Est. Patient 16:54:37 CDT Checo Conklin MD [facility] Procedures Code Procedure Name Date Entry Date Standard Desc ription CPT-OV Office Visit 11:31:28 CDT CPT-43697 Tubersol 09:39:29 CDT CPT-J2550 Phenergan 25 mg (Promethazine) 13:59:02 FLOOR INSTALLATION MECHANIC CPT-J1885 Toradol 60 mg (Ketorolac) 13:59:02 FLOOR INSTALLATION MECHANIC 2012
--- OUTSIDE RECORDS SUMMARY | 2019-09-29 02:26 | XMS REPORT | Clinical Summary ---
Author Author Admin, Bethany Gonzales Organization [employer] Address Unknown Phone Unavailable Allergies, Adverse Reactions, [...] MD Hypoglycemia, unspecified Insomnia 780.52 Resolved Checo Conlkin MD Insomnia, unspecified Hyperlipidemia 272.4 Active Checo [...] Carbuncle/furuncle NOS ICD-680.9 Inactive Hilaria Conklin MD PHARYNGITIS ICD-462 Inactive Checo Conklin MD Sinusitis ICD-461.9 Inactive Checo Conklin MD Knee pain, right ICD-719.46 Inactive Checo gallagher MD Vertigo ICD-780.4 Inactive Checo Conklin MD 2014 Abscess, skin ICD-682.9 Inactive Checo richey MD Bacterial vaginosis ICD-616.10 Inactive Lenora Conklin MD Abdominal pain ICD-789.00 Inactive Checo ngo MD BRONCHITIS, ACUTE ICD-466.0 Inactive Checo gallagher MD Pedal edema ICD-782.3 Inactive Checo Conklin [...] TABS 1.5 po qd PAROX ETINE HCL 45502211037 Active Checo Conklin MD Active FLUTICASONE PROPIONATE 50 MCG/ACT NASAL SUSP 2 sprays/ nostril qd PRN Congestion/Allergies FLUTICASONE PROPIONATE 7669460787 5 No Longer Active Checo Conklin MD Active AMOXICILLIN 500 MG ORAL CAPS 2 po BID x 10 days 09/12 AMOXICILLIN 41350695390 No Longer Active Checo Conklin MD Activ e MIRALAX ORAL POWD 8.5 to 17g po qd PRN Constipation POLYETHYLENE GLYCOL 3350 82393336912 Active Checo Conklin MD Active CLARITIN 10 MG TAB 1 tablet by mouth daily as needed for allergi es LORATADINE 66023308704 No Longer Active Checo Conklin MD Active BACTRIM DS 800-160 MG TAB 1 tab by mouth twice daily 2 TRIMETHOPRIM-SULFAMETHOXAZOLE 28016652249 No Longer Active Tanner Carrillo MD Active DIFLUCAN 150 MG TAB 1 tablet by mouth qod FLUCO NAZOLE 03943960221 No Longer Active Efren Medel APRN Active AZITHROMYCIN 250 MG TABS 2 po qd x 1 day, then 1 po qd x 4 days AZITHROMYCIN 86698965327 No Longer Active Efren Medel APRN Active FLAGYL 500 MG TAB 1 tablet by mouth bid METRONI DAZOLE 32552362010 No Longer Active Checo Conklin MD Active FOCALIN XR 10 MG ORAL [id number] 1 po q a.m. DEX METHYLPHENIDATE HCL 96750377369 Active Checo Conklin MD Active MAGNESIUM CITRATE 1.745 GM/30ML ORAL SOLN 150ml po BID PRN C onstipation MAGNESIUM CITRATE 40928157005 No Longer Active Checo Conklin MD Active BACTROBAN 2 % CREAM Apply to affected area BID for up to 10 days MUPIROCIN CALCIUM 23891942711 No Longer Active Checo Conklin MD Active HYDROCODONE-ACETAMINOPHEN 5-325 MG TABS 1 tab by mouth every 6 hours as needed HYDROCODONE-ACETAMINOPHEN 59642880180 No Longer Activ e Checo Conklin MD Active IBUPROFEN 800 MG TABS 1 tab every 8 hours with food 20 31/03/21 IBUPROFEN 75723702318 No Longer Active Checo Conklin MD Activ e DIFLUCAN 150 MG TAB 1 tablet by mouth if needed, hold until symptoms start FLUCONAZOLE 74633570572 No Longer Active Checo Ortiz MD Active BACTRIM DS 800-160 MG TAB 1 tab by mouth twice daily 2 TRIMETHOPRIM-SULFAMETHOXAZOLE 34158452909 No Longer Active Corry leong LPN Active HYDROCODONE-ACETAMINOPHEN 5-325 MG TABS 0.5 to 1 tab b y mouth every 6 hours as needed HYDROCODONE-ACETAMINOPHEN 44433166948 No Longer Active Checo Conklin MD Active ONDANSETRON [address] one tablet on tongue and allow to dissolve every 6 hours as needed for vomitting ONDANSETRO N 31720880505 No Longer Active Checo Conklin MD Active COMPRO 25 MG RECTAL SUPP insert or apply one supposit ory rectally as directed every 12 hours as needed for nausea PROCHLORPERA ZINE 56270523004 No Longer Active Checo Conklin MD Active SUMATRIPTAN SUCCINATE 100 MG ORAL TABS Take one PRN for migrane SUMATRIPTAN SUCCINATE 25650105376 No Longer Active Checo Conklin MD Active TRAVEL SICKNESS 25 MG ORAL CHEW chew and swallow one t ablet every 6 hours as needed MECLIZINE HCL 13156065692 No Longer Active Joe Conklin MD Active BUPROPION HCL ER (SR) 100 MG ORAL [id number] take one t ablet by mouth one time daily for one week then take 1 two times daily BUPROPION HCL 64754363685 No Longer Active Checo Conklin MD Activ e TERBINAFINE HCL 250 MG ORAL TABS take one table PO one time abran y TERBINAFINE HCL 61868921624 No Longer Active Checo Conklin MD Active METOCLOPRAMIDE HCL 10 MG ORAL TABS take one PO tid PRN nausea 20 29/12/14 METOCLOPRAMIDE HCL 40797549058 No Longer Active Checo Conklin MD Active DICLOFENAC SODIUM 75 MG TBEC 1 tablet by mouth twice daily P RN Knee pain DICLOFENAC SODIUM 76617005740 No Longer Active Checo Conklin MD Active LAMISIL 250 MG TAB 1 po qd TERBINAFINE HCL 548 96637818 No Longer Active Checo Conklin MD Active REGLAN 10 MG TAB 1 po TID PRN Nausea METOCLOPRA MIDE HCL 87549078973 No Longer Active Checo Conklin MD Active CELEXA 20 MG TABS 1 tablet by mouth daily CITALOPRAM HYDROBROMIDE 18800538261 No Longer Active Checo Conklin MD Activ e AZITHROMYCIN 250 MG TABS 2 po qd x 1 day, then 1 po qd x 4 days AZITHROMYCIN 74788865249 No Longer Active Checo Conklin MD Active HYDROCODONE-ACETAMINOPHEN 5-325 MG TABS 1 po q 6hr PRN Pain 2013 HYDROCODONE-ACETAMINOPHEN 41607397212 No Longer Active Lenora Conklin MD Active PHENAZOPYRIDINE HCL 200 MG TABS take 1 tab po TID for bladder pa in PHENAZOPYRIDINE HCL 12814370294 No Longer Active Checo Joshua Active CIPRO 500 MG TAB 1 tablet by mouth twice daily CIPROFLOXACIN HCL 05027127257 No Longer Active Dangelo Rangel MD Active HYDROCODONE-ACETAMINOPHEN 5-325 MG TABS 1/2 to 1 po q 4 hour s prn cough HYDROCODONE-ACETAMINOPHEN 72695624850 No Longer Activ e Dangelo Rangel MD Active BACTRIM DS 800-160 MG TABS 1 po BID x 7 days 0 SULFAMETHOXAZOLE-TRIMETHOPRIM 30256411214 No Longer Active Checo Conklin MD Active PREDNISONE 20 MG TAB 2 tabs daily for 3 days, 1 t ab daily for 3 days, 1/2 tab daily for 2 days PREDNISONE 29529534156 No Longer Active Checo Conklin MD Active TRIAMCINOLONE ACETONIDE 0.1 % OINT Apply to affected a reas TID for up to 2 weeks TRIAMCINOLONE ACETONIDE 63978019343 No Longer A ctive Checo Conklin MD Active CEFDINIR 300 MG CAPS by mouth twice a day CEFDI JAZZY 78392573649 No Longer Active Dangelo Rangel MD Active BUPROPION HCL (SMOKING DETER) 150 MG [id number]-DDM 1 a day for 1 week then 1 twice a day BUPROPION HCL (SMOKING DETER) 79589494489 No Lo nger Active Checo Conklin MD Active SIMVASTATIN 20 MG TABS 1 po qd SIMVASTATIN 1038992098 5 Active Checo Conklin MD Active CHANTIX STARTING MONTH KARTHIK 0.5 MG X 11 & 1 MG X 42 TAB S 0.5mg daily for 3 days, then 0.5mg BID for 4 days, then 1mg BID VARENICLINE TARTRATE 13040194538 No Longer Active Checo Conklin MD Activ e XANAX 0.5 MG TABS 1 po BID PRN anxiety ALPRAZOLAM 56514294690 Active Checo Conklin MD Active CONCERTA 18 MG CR-TABS 1 po q a.m. METHYLPHENID ATE HCL 18018695761 No Longer Active Checo Conklin MD Active AMBIEN 5 MG TAB 1 po qHS PRN Insomnia ZOLPIDEM TARTRATE 80980814512 Active Checo Conklin MD Active TRAZODONE HCL 100 MG TAB 0.5 to 1 po qHS PRN Insomnia TRAZODONE HCL 69749308625 No Longer Active Checo Conklin MD Acti ve FIORICET 325-50-40 MG TAB 1 tablet by mouth four times daily as needed [id number] 32413722115 No Longer Active Checo Conklin MD Active PHENERGAN CREAM* 25mg applied to wrist q6hr PRN Nausea PHENERGAN CREAM* No Longer Active Checo Conklin MD A ctive FLONASE 50 MCG/ACT SUSP 1 spray each nostril am and hs FLUTICASONE PROPIONATE 94770176760 No Longer Active Checo Conklin MD Activ e ANTIPYRINE-BENZOCAINE 5.4-1.4 % SOLN 1-2 drops in affected ear BENZOCAINE-ANTIPYRINE 68413556671 No Longer Active Checo Conklin MD Active CEFDINIR 300 MG CAPS 1 po bid CEFDINIR 29333006 120 No Longer Active Checo Conklin MD Active PREDNISONE 20 MG TAB 2 tabs daily for 3 days, 1 t ab daily for 3 days, 1/2 tab daily for 2 days PREDNISONE 40623141280 No Longer Active Aracelis Conklin MD Active AZITHROMYCIN 250 MG TABS 2 po qd x 1 day, then 1 po qd x 4 days AZITHROMYCIN 12482633240 No Longer Active Checo Conklin MD Active PREDNISONE 20 MG TAB 2 tabs daily for 3 days, 1 t ab daily for 3 days, 1/2 tab daily for 2 days PREDNISONE 71923557968 No Longer Active Checo Conklin MD Active ZITHROMAX Z-KARTHIK 250 MG TABS 2 today, then 1 daily for 4 days 201 09/18/28 AZITHROMYCIN 09029013896 No Longer Active Paul Hamlin MD Active FOCALIN XR 10 MG [id number] 1 po q a.m. D EXMETHYLPHENIDATE HCL 64594462223 No Longer Active Paul Hamlin MD Activ e PERCOCET 10-325 MG TABS 1 tablet every 6 hours as needed for pain OXYCODONE-ACETAMINOPHEN 38309340399 No Longer Active Paul Hamlin MD Active LORTAB 5 5-500 MG TABS 1/2 to 1 tablet by mouth flaquito ry 4 hours as needed for pain HYDROCODONE-ACETAMINOPHEN 79777511095 No Longer Active Checo Conklin MD Active FOCALIN XR 15 MG [id number] 1 po q a.m. D EXMETHYLPHENIDATE HCL 72801092591 No Longer Active Checo Conklin MD Activ e ZOFRAN ODT 4 MG TBDP 1 po q6hr PRN Nausea ONDAN SETRON 38595884189 No Longer Active Checo Conklin MD Active PERCOCET 5-325 MG TABS 1 tablet by mouth every 6 hours as needed OXYCODONE-ACETAMINOPHEN 12053242656 No Longer Active Checo Conklin MD Active PYRIDIUM 200 MG TABS take 1 tab po TID prn urinary pain. 0 PHENAZOPYRIDINE HCL 36965291017 No Longer Active Checo Conklin MD Active FLUCONAZOLE 150 MG TABS take 1 tab po qday once 04/06 FLUCONAZOLE 81410345464 No Longer Active Dangelo Rangel MD Acti ve CIPRO 500 MG TAB 1 tablet by mouth twice daily CIPROFLOXACIN HCL 00694732740 No Longer Active Dangelo Rangel MD Active PYRIDIUM 200 MG TABS take 1 tab po TID prn urinary pain. 0 PYRIDIUM 200 MG TABS 7627674 PHENAZOPYRIDINE HCL Inactive PERCOCET 5-325 MG TABS 1 tablet by mouth every 6 hours as needed PERCOCET 5-325 MG TABS 2345982 OXYCODONE-ACETAMINOPHEN I nactive ZOFRAN ODT 4 MG TBDP 1 po q6hr PRN Nausea ZOFRAN ODT 4 MG TBDP 585416 ONDANSETRON Inactive FOCALIN XR 15 MG [id number] 1 po q a.m. F OCALIN XR 15 MG [id number]-DLZ DEXMETHYLPHENIDATE HCL Inactive LORTAB 5 5-500 MG TABS 1/2 to 1 tablet by mouth flaquito ry 4 hours as needed for pain LORTAB 5 5-500 MG TABS HYDROCODONE-A CETAMINOPHEN Inactive PERCOCET 10-325 MG TABS 1 tablet every 6 hours as needed for pain PERCOCET 10-325 MG TABS 1907417 OXYCODONE-ACETAMINOPHEN Inactive FOCALIN XR 10 MG [id number] 1 po q a.m. F OCALIN XR 10 MG [id number]-[id number] DEXMETHYLPHENIDATE HCL Inactive CEFDINIR 300 MG CAPS [...] PRN Insomnia TRAZODONE HCL 100 MG TAB 116286 TRAZODONE HCL Inactive CONCERTA 18 MG CR-TABS [...] s prn cough HYDROCODONE-ACETAMINOPHEN 5-325 MG TABS 951754 HYDROCODONE-ACETAMINOPHEN Inactive PHENAZOPYRIDINE HCL 200 MG TABS take 1 tab po TID for bladder pa in PHENAZOPYRIDINE HCL 200 MG TABS 7192157 PHENAZOPYRIDINE HCL Inactive HYDROCODONE-ACETAMINOPHEN 5-325 MG TABS 1 po q 6hr PRN Pain 2013 HYDROCODONE-ACETAMINOPHEN 5-325 MG TABS 129508 HYDROCODONE-ACETAMINOPHEN Inactive CELEXA 20 MG TABS 1 tablet by mouth daily CELEXA 20 MG TABS 600702 CITALOPRAM HYDROBROMIDE Inactive REGLAN 10 MG TAB 1 po TID PRN Nausea REGLAN 10 MG TAB 368704 METOCLOPRAMIDE HCL Inactive LAMISIL 250 MG TAB 1 po qd LAMISIL 250 MG TAB 668137 TERBINAFINE HCL Inactive DICLOFENAC SODIUM 75 MG TBEC 1 tablet by mouth twice daily P RN Knee pain DICLOFENAC SODIUM 75 MG TBEC 024084 DICLOFENAC S ODIUM Inactive METOCLOPRAMIDE HCL 10 MG ORAL TABS take one PO tid PRN nausea 20 29/12/14 METOCLOPRAMIDE HCL 10 MG ORAL TABS 356645 METOCLOPRAMID E HCL Inactive TERBINAFINE HCL 250 MG ORAL TABS take one table PO one time abran y TERBINAFINE HCL 250 MG ORAL TABS 259550 TERBINAFINE HCL Inactive BUPROPION HCL ER (SR) 100 MG ORAL [id number] take one t ablet by mouth one time daily for one week then take 1 two times daily BUPROPION HCL ER (SR) 100 MG ORAL [id number] BUPROPION HCL Inacti ve TRAVEL SICKNESS 25 MG ORAL CHEW chew and swallow one t ablet every 6 hours as needed TRAVEL SICKNESS 25 MG ORAL CHEW 416555 MECLIZINE HCL Inactive SUMATRIPTAN SUCCINATE 100 MG ORAL TABS Take one PRN for migrane SUMATRIPTAN SUCCINATE 100 MG ORAL TABS 314601 SUMATRIPT AN SUCCINATE Inactive COMPRO 25 MG RECTAL SUPP insert or apply one supposit ory rectally as directed every 12 hours as needed for nausea COMP RO 25 MG RECTAL SUPP 454653 PROCHLORPERAZINE Inactive ONDANSETRON [address] one tablet on tongue and allow to dissolve every 6 hours as needed for vomitting ON DANSETRON 8 MG ORAL TBDP 863991 ONDANSETRON Inactive HYDROCODONE-ACETAMINOPHEN 5-325 MG TABS 0.5 to 1 tab b y mouth every 6 hours as needed HYDROCODONE-ACETAMINOPHEN 5-325 MG TABS 8 60166 HYDROCODONE-ACETAMINOPHEN Inactive BACTRIM DS 800-160 MG TAB 1 tab by mouth twice daily 2 BACTRIM DS 800-160 MG TAB 359275 TRIMETHOPRIM-SULFAMETHOXAZOLE Inac tive DIFLUCAN 150 MG TAB 1 tablet by mouth if needed, hold until symptoms start DIFLUCAN 150 MG TAB 19760325 FLUCONAZOLE Inactive IBUPROFEN 800 MG TABS 1 tab every 8 hours with food 31/03/21 IBUPROFEN 800 MG TABS 418410 IBUPROFEN Inactive HYDROCODONE-ACETAMINOPHEN 5-325 MG TABS 1 tab by mouth every 6 hours as needed HYDROCODONE-ACETAMINOPHEN 5-325 MG TABS 390998 HYDROCODONE-ACETAMINOPHEN Inactive BACTROBAN 2 % CREAM Apply to affected area BID for up to 10 days BACTROBAN 2 % CREAM 165016 MUPIROCIN CALCIUM Inactive MAGNESIUM CITRATE 1.745 GM/30ML ORAL SOLN 150ml po BID PRN C onstipation MAGNESIUM CITRATE 1.745 GM/30ML ORAL SOLN 518335 0 MAGNESIUM CITRATE Inactive DIFLUCAN 150 MG TAB 1 tablet by mouth qod DIFLUCAN 150 MG TAB 632551 FLUCONAZOLE Inactive BACTRIM DS 800-160 MG TAB 1 tab by mouth twice daily 2 BACTRIM DS 800-160 MG TAB 977880 TRIMETHOPRIM-SULFAMETHOXAZOLE Inac tive CLARITIN 10 MG TAB 1 tablet by mouth daily as needed for allergi es CLARITIN 10 MG TAB 002802 LORATADINE Inactive FLUTICASONE PROPIONATE 50 MCG/ACT NASAL SUSP 2 sprays/ nostril qd PRN Congestion/Allergies FLUTICASONE PROPION ATE 50 MCG/ACT NASAL SUSP 0133653 FLUTICASONE PROPIONATE Inactive CIPRO 500 MG TAB 1 tablet by mouth twice daily CIPRO 500 MG TAB 741066 CIPROFLOXACIN HCL Inactive FLUCONAZOLE 150 MG TABS take 1 tab po qday once 04/06 FLUCONAZOLE 150 MG TABS 515538 FLUCONAZOLE Inactive ZITHROMAX Z-KARTHIK 250 MG TABS 2 today, then 1 daily for 4 days 201 09/18/28 ZITHROMAX Z-KARTHIK 250 MG TABS 3640059 AZITHROMYCIN Inac tive PREDNISONE 20 MG TAB 2 tabs daily for 3 days, 1 t ab daily for 3 days, 1/2 tab daily for 2 days PREDNISONE 20 MG TAB 314058 PREDNISON E Inactive AZITHROMYCIN 250 MG TABS 2 po qd x 1 day, then 1 po qd x 4 days AZITHROMYCIN 250 MG TABS 0708849 AZITHROMYCIN Inactiv e PREDNISONE 20 MG TAB 2 tabs daily for 3 days, 1 t ab daily for 3 days, 1/2 tab daily for 2 days PREDNISONE 20 MG TAB 274168 PREDNISON E Inactive CEFDINIR 300 MG CAPS by mouth twice a day CEFDINIR 300 MG CAPS 085482 CEFDINIR Inactive TRIAMCINOLONE ACETONIDE 0.1 % OINT Apply to affected a reas TID for up to 2 weeks TRIAMCINOLONE ACETONIDE 0.1 % OINT 554406 6 TRIAMCINOLONE ACETONIDE Inactive PREDNISONE 20 MG TAB 2 tabs daily for 3 days, 1 t ab daily for 3 days, 1/2 tab daily for 2 days PREDNISONE 20 MG TAB 900090 PREDNISON E Inactive BACTRIM DS 800-160 MG TABS 1 po BID x 7 days 0 BACTRIM DS 800-160 MG TABS 065774 SULFAMETHOXAZOLE-TRIMETHOPRIM Inactive CIPRO 500 MG TAB 1 tablet by mouth twice daily CIPRO 500 MG TAB 011869 CIPROFLOXACIN HCL Inactive AZITHROMYCIN 250 MG TABS 2 po qd x 1 day, then 1 po qd x 4 days AZITHROMYCIN 250 MG TABS 4007008 AZITHROMYCIN Inactiv e FLAGYL 500 MG TAB 1 tablet by mouth bid FLAGYL 500 MG TAB 169431 METRONIDAZOLE Inactive AZITHROMYCIN 250 MG TABS 2 po qd x 1 day, then 1 po qd x 4 days AZITHROMYCIN 250 MG TABS 4283837 AZITHROMYCIN Inactiv e AMOXICILLIN 500 MG ORAL CAPS 2 po BID x 10 days 09/12 AMOXICILLIN 500 MG ORAL CAPS 500876 AMOXICILLIN Inactive Immunizations Vaccine Administration Date Value [...] 11 .6-14.8 platelet count 248 10^3/MM^3 10*3/mm3 537-622 6810/05/27 erythrocyte (RBC) count 4.40 10^6/MM^3 10*6/mm3 4.04-5.4 8 lymphocytes as percent of blood leukocytes 25.1 % 20.5-51.1 monocytes as percent of blood leukocytes 7.6 % 1.7-9.3 neutrophils as percent of blood leukocytes 64.6 % 42.2-75.2 leukocyte count, blood 8.0 10^3/MM^3 10*3/mm3 4.6-10.2 Lab Report: CBC W/DIFF, Comp. Metabolic Panel, [place] [facility] [place] Chemistry sodium, serum 139 mmol/L 049-319 3205/10/21 carbon dioxide, venous blood 33.5 mmol/L 21.0-32 [...] W/DIFF, Comp. Metabolic Panel, [place] [facility] [place] Hematology neutrophils as percent of blood [...] PANEL - Chemistry cholesterol, serum 192 mg/dL 283-439 4154/02/20 HDL cholesterol, serum 31 mg/dL > OR [...] 11 .0-15.0 platelet count 218 THOUSAND/UL 10*3/mm3 698-733 2935/02/20 mean platelet volume 9.7 fL 7.5-12.5 Lab Report: Chlamydia/GC APTIMA/[id number] - Lab chlamydia DNA probe NOT DETECTED NOT DETECTED Lab Report: Chlamydia/GC [facility]TIMA/27474 - Microbiology Neisseria gonorrhoeae DNA probe NOT DETECTED NO T DETECTED Lab Report: Comp. Metabolic Panel, Thyro id Stimulating Hormone (L), Eryt ... - Chemistry sodium, serum 137 mmol/L 924-255 5011/05/27 carbon dioxide, venous blood 29.1 mmol/L 21.0-32 [...] Negative Encounters Code Encounter Date Provider Facility CPT-36959 Level 3 Est. Patient 11:29:55 CDT Checo Conklin MD [facility] CPT-54802 Level 4 Est. Patient 11:08:12 STENCIL PRINTER Checo Conklin MD [facility] CPT-64143 Level 4 Est. Patient 16:06:48 STENCIL PRINTER Checo Conklin MD [facility] CPT-00179 Level 3 Est. Patient 09:11:49 CDT Efren almendarez [facility] CPT-69116 Level 2 Est. Patient 19:53:27 CDT Tanner hill MD [facility] CPT-98017 Level 3 Est. Patient 09:15:34 CDT Efren almendarez [facility] CPT-55502 Level 3 Est. Patient 11:28:51 STENCIL PRINTER Efren almendarez [facility]-30286 Level 4 Est. Patient 13:55:46 STENCIL PRINTER Checo Conklin MD [facility] CPT-61604 Level 4 Est. Patient 17:10:53 CDT Checo Conklin MD [facility] CPT-69194 Level 3 Est. Patient 15:56:22 CDT Checo Conklin MD [facility] CPT-79541 Level 3 Est. Patient 15:29:07 CDT Checo Conklin MD [facility] CPT-22691 Level 3 Est. Patient 14:38:41 CDT Checo Conklin MD [facility] CPT-32590 Level 3 Est. Patient 15:22:03 STENCIL PRINTER Thomas reynolds DO [facility] CPT-00676 Level 3 Est. Patient 13:34:17 STENCIL PRINTER Checo Conklin MD [facility] CPT-77691 Level 3 Est. Patient 12:29:32 CDT Dangelo arroyo MD [facility] CPT-41954 Level 3 Est. Patient 16:53:02 CDT Checo Conklin MD [facility] CPT-36966 Level 3 Est. Patient 16:37:13 CDT Checo Conklin MD [facility] CPT-99769 Level 3 Est. Patient 16:16:59 CDT Paul Hamlin MD [facility] CPT-11781 Level 3 Est. Patient 14:20:13 CDT Dangelo arroyo MD [facility] CPT-10070 Level 4 Est. Patient 11:29:33 CDT Checo Conklin MD [facility] CPT-56540 Level 3 Est. Patient 17:08:31 CDT Checo Conklin MD [facility] CPT-84708 Level 3 Est. Patient 16:50:42 STENCIL PRINTER Checo Conklin MD [facility] CPT-54126 Level 4 Est. Patient 09:26:08 STENCIL PRINTER Checo Conklin MD [facility] CPT-64397 Level 3 Est. Patient 11:37:10 CDT Checo Conklin MD [facility] CPT-78410 Level 4 Est. Patient 14:07:38 CDT Checo Conklin MD [facility] CPT-21077 Level 3 Est. Patient 09:54:41 CDT Checo Conklin MD [facility] CPT-19621 Level 3 Est. Patient 11:10:54 CDT Paul Hamlin MD [facility] CPT-96575 Level 3 Est. Patient 14:16:56 STENCIL PRINTER Checo Conklin MD [facility] CPT-46048 Level 3 Est. Patient 11:04:11 STENCIL PRINTER Checo Conklin MD [facility] CPT-04821 Level 3 Est. Patient 17:09:26 CDT Dangelo arroyo MD [facility] CPT-66169 Level 3 Est. Patient 16:54:37 CDT Checo Conklin MD [facility] Procedures Code Procedure Name Date Entry Date Standard Desc ription CPT-05726 UA w micro - LAB USE ONLY 17:06:46 CDT 2015 CPT-42988 [facility] Qual - LAB USE ONLY 17:06:46 CDT 05/06 CPT-81114 CMP - LAB USE ONLY 17:06:46 CDT CPT-92101 CBC with Diff - LAB USE ONLY 17:06:45 CDT 2 CPT-09077 Venipuncture Draw Fee 17:06:45 CDT CPT-LR Lesion Removal 19:53:27 CDT CPT-OV Office Visit 11:31:28 CDT CPT-65089 Tubersol 09:39:29 CDT CPT-J2550 Phenergan 25 mg (Promethazine) 13:59:02 STENCIL PRINTER CPT-J1885 Toradol 60 mg (Ketorolac) 13:59:02 STENCIL PRINTER 2012
--- OUTSIDE RECORDS SUMMARY | 2019-09-29 02:27 | XMS REPORT | Clinical Summary ---
Author Author Admin, Bethany Gonzales Organization [employer] Address Unknown Phone Unavailable Allergies, Adverse Reactions, [...] TABS 1.5 po qd PAROX ETINE HCL 58404225066 Active Checo Conklin MD Active FLUTICASONE PROPIONATE 50 MCG/ACT NASAL SUSP 2 sprays/ nostril qd PRN Congestion/Allergies FLUTICASONE PROPIONATE 7789540036 5 No Longer Active Checo Conklin MD Active AMOXICILLIN 500 MG ORAL CAPS 2 po BID x 10 days 09/12 AMOXICILLIN 49026780371 No Longer Active Checo Conklin MD Activ e MIRALAX ORAL POWD 8.5 to 17g po qd PRN Constipation POLYETHYLENE GLYCOL 3350 09265688970 Active Checo Conklin MD Active CLARITIN 10 MG TAB 1 tablet by mouth daily as needed for allergi es LORATADINE 72373542181 No Longer Active Checo Conklin MD Active BACTRIM DS 800-160 MG TAB 1 tab by mouth twice daily 2 TRIMETHOPRIM-SULFAMETHOXAZOLE 45981848889 No Longer Active Tanner Carrillo MD Active DIFLUCAN 150 MG TAB 1 tablet by mouth qod FLUCO NAZOLE 52822172128 No Longer Active Efren Medel APRN Active AZITHROMYCIN 250 MG TABS 2 po qd x 1 day, then 1 po qd x 4 days AZITHROMYCIN 49600704305 No Longer Active Efren Medel [employer] MA[employer]GER Active FLAGYL 500 MG TAB 1 tablet by mouth bid METRONI DAZOLE 19389725059 No Longer Active Checo Conklin MD Active FOCALIN XR 10 MG ORAL [id number] 1 po q a.m. DEX METHYLPHENIDATE HCL 41105440961 Active Checo Conklin MD Active MAGNESIUM CITRATE 1.745 GM/30ML ORAL SOLN 150ml po BID PRN C onstipation MAGNESIUM CITRATE 95612838058 No Longer Active Checo Conklin MD Active BACTROBAN 2 % CREAM Apply to affected area BID for up to 10 days MUPIROCIN CALCIUM 14314654805 No Longer Active Checo Conklin MD Active HYDROCODONE-ACETAMINOPHEN 5-325 MG TABS 1 tab by mouth every 6 hours as needed HYDROCODONE-ACETAMINOPHEN 94965597033 No Longer Activ e Checo Conklin MD Active IBUPROFEN 800 MG TABS 1 tab every 8 hours with food 20 31/03/21 IBUPROFEN 76976663862 No Longer Active Checo Conklin MD Activ e DIFLUCAN 150 MG TAB 1 tablet by mouth if needed, hold until symptoms start FLUCONAZOLE 19448947207 No Longer Active Checo Ortiz MD Active BACTRIM DS 800-160 MG TAB 1 tab by mouth twice daily 2 TRIMETHOPRIM-SULFAMETHOXAZOLE 98384918891 No Longer Active Corry leong LPN Active HYDROCODONE-ACETAMINOPHEN 5-325 MG TABS 0.5 to 1 tab b y mouth every 6 hours as needed HYDROCODONE-ACETAMINOPHEN 98933315476 No Longer Active Checo Conklin MD Active ONDANSETRON [address] one tablet on tongue and allow to dissolve every 6 hours as needed for vomitting ONDANSETRO N 11653818011 No Longer Active Checo Conklin MD Active COMPRO 25 MG RECTAL SUPP insert or apply one supposit ory rectally as directed every 12 hours as needed for nausea PROCHLORPERA ZINE 61724110979 No Longer Active Checo Conklin MD Active SUMATRIPTAN SUCCINATE 100 MG ORAL TABS Take one PRN for migrane SUMATRIPTAN SUCCINATE 39419899223 No Longer Active Checo Conklin MD Active TRAVEL SICKNESS 25 MG ORAL CHEW chew and swallow one t ablet every 6 hours as needed MECLIZINE HCL 37108845141 No Longer Active Joe Conklin MD Active BUPROPION HCL ER (SR) 100 MG ORAL [id number] take one t ablet by mouth one time daily for one week then take 1 two times daily BUPROPION HCL 53074138985 No Longer Active Checo Conklin MD Activ e TERBINAFINE HCL 250 MG ORAL TABS take one table PO one time abran y TERBINAFINE HCL 41792159350 No Longer Active Checo Conklin MD Active METOCLOPRAMIDE HCL 10 MG ORAL TABS take one PO tid PRN nausea 20 29/12/14 METOCLOPRAMIDE HCL 95977863257 No Longer Active Checo Conklin MD Active DICLOFENAC SODIUM 75 MG TBEC 1 tablet by mouth twice daily P RN Knee pain DICLOFENAC SODIUM 99541948491 No Longer Active Checo Conklin MD Active LAMISIL 250 MG TAB 1 po qd TERBINAFINE HCL 548 45159648 No Longer Active Checo Conklin MD Active REGLAN 10 MG TAB 1 po TID PRN Nausea METOCLOPRA MIDE HCL 65577647921 No Longer Active Checo Conklin MD Active CELEXA 20 MG TABS 1 tablet by mouth daily CITALOPRAM HYDROBROMIDE 75271069719 No Longer Active Checo Conklin MD Activ e AZITHROMYCIN 250 MG TABS 2 po qd x 1 day, then 1 po qd x 4 days AZITHROMYCIN 93394767601 No Longer Active Checo Conklin MD Active HYDROCODONE-ACETAMINOPHEN 5-325 MG TABS 1 po q 6hr PRN Pain 2013 HYDROCODONE-ACETAMINOPHEN 57574509036 No Longer Active Lenora Conklin MD Active PHENAZOPYRIDINE HCL 200 MG TABS take 1 tab po TID for bladder pa in PHENAZOPYRIDINE HCL 43112510004 No Longer Active Checo Joshua Active CIPRO 500 MG TAB 1 tablet by mouth twice daily CIPROFLOXACIN HCL 58913269984 No Longer Active Dangelo Rangel MD Active HYDROCODONE-ACETAMINOPHEN 5-325 MG TABS 1/2 to 1 po q 4 hour s prn cough HYDROCODONE-ACETAMINOPHEN 87342480543 No Longer Activ e Dangelo Rangel MD Active BACTRIM DS 800-160 MG TABS 1 po BID x 7 days 0 SULFAMETHOXAZOLE-TRIMETHOPRIM 82631359896 No Longer Active Checo Conklin MD Active PREDNISONE 20 MG TAB 2 tabs daily for 3 days, 1 t ab daily for 3 days, 1/2 tab daily for 2 days PREDNISONE 08530230294 No Longer Active Checo Conklin MD Active TRIAMCINOLONE ACETONIDE 0.1 % OINT Apply to affected a reas TID for up to 2 weeks TRIAMCINOLONE ACETONIDE 20855500116 No Longer A ctive Checo Conklin MD Active CEFDINIR 300 MG CAPS by mouth twice a day CEFDI JAZZY 37569968461 No Longer Active Dangelo Rangel MD Active BUPROPION HCL (SMOKING DETER) 150 MG [id number] 1 a day for 1 week then 1 twice a day BUPROPION HCL (SMOKING DETER) 87482698863 No Lo nger Active Checo Conklin MD Active SIMVASTATIN 20 MG TABS 1 po qd SIMVASTATIN 3312840222 5 Active Checo Conklin MD Active CHANTIX STARTING MONTH KARTHIK 0.5 MG X 11 & 1 MG X 42 TAB S 0.5mg daily for 3 days, then 0.5mg BID for 4 days, then 1mg BID VARENICLINE TARTRATE 02893474686 No Longer Active Checo Conklin MD Activ e XANAX 0.5 MG TABS 1 po BID PRN anxiety ALPRAZOLAM 88668915721 Active Checo Conklin MD Active CONCERTA 18 MG CR-TABS 1 po q a.m. METHYLPHENID ATE HCL 45135323332 No Longer Active Checo Conklin MD Active AMBIEN 5 MG TAB 1 po qHS PRN Insomnia ZOLPIDEM TARTRATE 30759231129 Active Checo Conklin MD Active TRAZODONE HCL 100 MG TAB 0.5 to 1 po qHS PRN Insomnia TRAZODONE HCL 12824963988 No Longer Active Checo Conklin MD Acti ve FIORICET 325-50-40 MG TAB 1 tablet by mouth four times daily as needed [id number] 70017797157 No Longer Active Checo Conklin MD Active PHENERGAN CREAM* 25mg applied to wrist q6hr PRN Nausea PHENERGAN CREAM* No Longer Active Checo Conklin MD A ctive FLONASE 50 MCG/ACT SUSP 1 spray each nostril am and hs FLUTICASONE PROPIONATE 37483575367 No Longer Active Checo Conklin MD Activ e ANTIPYRINE-BENZOCAINE 5.4-1.4 % SOLN 1-2 drops in affected ear BENZOCAINE-ANTIPYRINE 56886839855 No Longer Active Checo Conklin MD Active CEFDINIR 300 MG CAPS 1 po bid CEFDINIR 41561583 120 No Longer Active Checo Conklin MD Active PREDNISONE 20 MG TAB 2 tabs daily for 3 days, 1 t ab daily for 3 days, 1/2 tab daily for 2 days PREDNISONE 94205187819 No Longer Active Aracelis Conklin MD Active AZITHROMYCIN 250 MG TABS 2 po qd x 1 day, then 1 po qd x 4 days AZITHROMYCIN 99297173433 No Longer Active Checo Conklin MD Active PREDNISONE 20 MG TAB 2 tabs daily for 3 days, 1 t ab daily for 3 days, 1/2 tab daily for 2 days PREDNISONE 57407426517 No Longer Active Checo Conklin MD Active ZITHROMAX Z-KARTHIK 250 MG TABS 2 today, then 1 daily for 4 days 201 09/18/28 AZITHROMYCIN 08337805701 No Longer Active Paul Hamlin MD Active FOCALIN XR 10 MG [id number] 1 po q a.m. D EXMETHYLPHENIDATE HCL 50311482987 No Longer Active Paul Hamlin MD Activ e PERCOCET 10-325 MG TABS 1 tablet every 6 hours as needed for pain OXYCODONE-ACETAMINOPHEN 77746800680 No Longer Active Paul Hamlin MD Active LORTAB 5 5-500 MG TABS 1/2 to 1 tablet by mouth flaquito ry 4 hours as needed for pain HYDROCODONE-ACETAMINOPHEN 49126141558 No Longer Active Checo Conklin MD Active FOCALIN XR 15 MG [id number] 1 po q a.m. D EXMETHYLPHENIDATE HCL 91051154312 No Longer Active Checo Conklin MD Activ e ZOFRAN ODT 4 MG TBDP 1 po q6hr PRN Nausea ONDAN SETRON 45415964560 No Longer Active Checo Conklin MD Active PERCOCET 5-325 MG TABS 1 tablet by mouth every 6 hours as needed OXYCODONE-ACETAMINOPHEN 67919697953 No Longer Active Checo Conklin MD Active PYRIDIUM 200 MG TABS take 1 tab po TID prn urinary pain. 0 PHENAZOPYRIDINE HCL 32197033244 No Longer Active Checo Conklin MD Active FLUCONAZOLE 150 MG TABS take 1 tab po qday once 0 04/06 FLUCONAZOLE 51402344117 No Longer Active Dangelo Rangel MD Acti ve CIPRO 500 MG TAB 1 tablet by mouth twice daily CIPROFLOXACIN HCL 25320371177 No Longer Active Dangelo Rangel MD Active PYRIDIUM 200 MG TABS take 1 tab po TID prn urinary pain. 0 PYRIDIUM 200 MG TABS 3700001 PHENAZOPYRIDINE HCL Inactive PERCOCET 5-325 MG TABS 1 tablet by mouth every 6 hours as needed PERCOCET 5-325 MG TABS 7218911 OXYCODONE-ACETAMINOPHEN I nactive ZOFRAN ODT 4 MG TBDP 1 po q6hr PRN Nausea ZOFRAN ODT 4 MG TBDP 972265 ONDANSETRON Inactive FOCALIN XR 15 MG [id number] 1 po q a.m. F OCALIN XR 15 MG [id number] DEXMETHYLPHENIDATE HCL Inactive LORTAB 5 5-500 MG TABS 1/2 to 1 tablet by mouth flaquito ry 4 hours as needed for pain LORTAB 5 5-500 MG TABS HYDROCODONE-A CETAMINOPHEN Inactive PERCOCET 10-325 MG TABS 1 tablet every 6 hours as needed for pain PERCOCET 10-325 MG TABS 4267196 OXYCODONE-ACETAMINOPHEN Inactive FOCALIN XR 10 MG [id number] 1 po q a.m. F OCALIN XR 10 MG [id number] DEXMETHYLPHENIDATE HCL Inactive CEFDINIR 300 MG CAPS 1 po bid CEFDINIR 300 MG CAPS 20 0346 CEFDINIR Inactive ANTIPYRINE-BENZOCAINE 5.4-1.4 % SOLN 1-2 drops in affected ear ANTIPYRINE-BENZOCAINE 5.4-1.4 % SOLN BENZOCAINE-ANTIPYRINE I nactive FLONASE 50 MCG/ACT SUSP 1 spray each nostril am and hs FLONASE 50 MCG/ACT SUSP 8013478 FLUTICASONE PROPIONATE Inactive PHENERGAN CREAM* 25mg applied to wrist q6hr PRN Nausea PHENERGAN CREAM* Inactive FIORICET 325-50-40 MG TAB 1 tablet by mouth four times daily as needed FIORICET 325-50-40 MG TAB ACETAMINOPHEN-C AFF-BUTALBITAL Inactive TRAZODONE HCL 100 MG TAB 0.5 to 1 po qHS PRN Insomnia TRAZODONE HCL 100 MG TAB 217251 TRAZODONE HCL Inactive CONCERTA 18 MG CR-TABS [...] s prn cough HYDROCODONE-ACETAMINOPHEN 5-325 MG TABS 665389 HYDROCODONE-ACETAMINOPHEN Inactive PHENAZOPYRIDINE HCL 200 MG TABS take 1 tab po TID for bladder pa in PHENAZOPYRIDINE HCL 200 MG TABS 5422541 PHENAZOPYRIDINE HCL Inactive HYDROCODONE-ACETAMINOPHEN 5-325 MG TABS 1 po q 6hr PRN Pain 2013 HYDROCODONE-ACETAMINOPHEN 5-325 MG TABS 200047 HYDROCODONE-ACETAMINOPHEN Inactive CELEXA 20 MG TABS 1 tablet by mouth daily CELEXA 20 MG TABS 228488 CITALOPRAM HYDROBROMIDE Inactive REGLAN 10 MG TAB 1 po TID PRN Nausea REGLAN 10 MG TAB 229377 METOCLOPRAMIDE HCL Inactive LAMISIL 250 MG TAB 1 po qd LAMISIL 250 MG TAB 324745 TERBINAFINE HCL Inactive DICLOFENAC SODIUM 75 MG TBEC 1 tablet by mouth twice daily P RN Knee pain DICLOFENAC SODIUM 75 MG TBEC 217871 DICLOFENAC S ODIUM Inactive METOCLOPRAMIDE HCL 10 MG ORAL TABS take one PO tid PRN nausea 20 29/12/14 METOCLOPRAMIDE HCL 10 MG ORAL TABS 345124 METOCLOPRAMID E HCL Inactive TERBINAFINE HCL 250 MG ORAL TABS take one table PO one time abran y TERBINAFINE HCL 250 MG ORAL TABS 937066 TERBINAFINE HCL Inactive BUPROPION HCL ER (SR) 100 MG ORAL [id number] take one t ablet by mouth one time daily for one week then take 1 two times daily BUPROPION HCL ER (SR) 100 MG ORAL [id number] BUPROPION HCL Inacti ve TRAVEL SICKNESS 25 MG ORAL CHEW chew and swallow one t ablet every 6 hours as needed TRAVEL SICKNESS 25 MG ORAL CHEW 265822 MECLIZINE HCL Inactive SUMATRIPTAN SUCCINATE 100 MG ORAL TABS Take one PRN for migrane SUMATRIPTAN SUCCINATE 100 MG ORAL TABS 120093 SUMATRIPT AN SUCCINATE Inactive COMPRO 25 MG RECTAL SUPP insert or apply one supposit ory rectally as directed every 12 hours as needed for nausea COMP RO 25 MG RECTAL SUPP 643179 PROCHLORPERAZINE Inactive ONDANSETRON [address] one tablet on tongue and allow to dissolve every 6 hours as needed for vomitting ON DANSETRON 8 MG ORAL TBDP 913631 ONDANSETRON Inactive HYDROCODONE-ACETAMINOPHEN 5-325 MG TABS 0.5 to 1 tab b y mouth every 6 hours as needed HYDROCODONE-ACETAMINOPHEN 5-325 MG TABS 8 29674 HYDROCODONE-ACETAMINOPHEN Inactive BACTRIM DS 800-160 MG TAB 1 tab by mouth twice daily 2 BACTRIM DS 800-160 MG TAB 19820918 TRIMETHOPRIM-SULFAMETHOXAZOLE Inac tive DIFLUCAN 150 MG TAB 1 tablet by mouth if needed, hold until symptoms start DIFLUCAN 150 MG TAB 19760325 FLUCONAZOLE Inactive IBUPROFEN 800 MG TABS 1 tab every 8 hours with food 31/03/21 IBUPROFEN 800 MG TABS 963768 IBUPROFEN Inactive HYDROCODONE-ACETAMINOPHEN 5-325 MG TABS 1 tab by mouth every 6 hours as needed HYDROCODONE-ACETAMINOPHEN 5-325 MG TABS 550644 HYDROCODONE-ACETAMINOPHEN Inactive BACTROBAN 2 % CREAM Apply to affected area BID for up to 10 days BACTROBAN 2 % CREAM 680935 MUPIROCIN CALCIUM Inactive MAGNESIUM CITRATE 1.745 GM/30ML ORAL SOLN 150ml po BID PRN C onstipation MAGNESIUM CITRATE 1.745 GM/30ML ORAL SOLN 839502 0 MAGNESIUM CITRATE Inactive DIFLUCAN 150 MG TAB 1 tablet by mouth qod DIFLUCAN 150 MG TAB 524136 FLUCONAZOLE Inactive BACTRIM DS 800-160 MG TAB 1 tab by mouth twice daily 2 BACTRIM DS 800-160 MG TAB 19820918 TRIMETHOPRIM-SULFAMETHOXAZOLE Inac tive CLARITIN 10 MG TAB 1 tablet by mouth daily as needed for allergi es CLARITIN 10 MG TAB 831578 LORATADINE Inactive FLUTICASONE PROPIONATE 50 MCG/ACT NASAL SUSP 2 sprays/ nostril qd PRN Congestion/Allergies FLUTICASONE PROPION ATE 50 MCG/ACT NASAL SUSP 6862239 FLUTICASONE PROPIONATE Inactive CIPRO 500 MG TAB 1 tablet by mouth twice daily CIPRO 500 MG TAB 684891 CIPROFLOXACIN HCL Inactive FLUCONAZOLE 150 MG TABS take 1 tab po qday once 04/06 FLUCONAZOLE 150 MG TABS 604294 FLUCONAZOLE Inactive ZITHROMAX Z-KARTHIK 250 MG TABS 2 today, then 1 daily for 4 days 201 09/18/28 ZITHROMAX Z-KARTHIK 250 MG TABS 1558775 AZITHROMYCIN Inac tive PREDNISONE 20 MG TAB 2 tabs daily for 3 days, 1 t ab daily for 3 days, 1/2 tab daily for 2 days PREDNISONE 20 MG TAB 044278 PREDNISON E Inactive AZITHROMYCIN 250 MG TABS 2 po qd x 1 day, then 1 po qd x 4 days AZITHROMYCIN 250 MG TABS 2941513 AZITHROMYCIN Inactiv e PREDNISONE 20 MG TAB 2 tabs daily for 3 days, 1 t ab daily for 3 days, 1/2 tab daily for 2 days PREDNISONE 20 MG TAB 902947 PREDNISON E Inactive CEFDINIR 300 MG CAPS by mouth twice a day CEFDINIR 300 MG CAPS 786051 CEFDINIR Inactive TRIAMCINOLONE ACETONIDE 0.1 % OINT Apply to affected a reas TID for up to 2 weeks TRIAMCINOLONE ACETONIDE 0.1 % OINT 315597 6 TRIAMCINOLONE ACETONIDE Inactive PREDNISONE 20 MG TAB 2 tabs daily for 3 days, 1 t ab daily for 3 days, 1/2 tab daily for 2 days PREDNISONE 20 MG TAB 240785 PREDNISON E Inactive BACTRIM DS 800-160 MG TABS 1 po BID x 7 days 0 BACTRIM DS 800-160 MG TABS 955410 SULFAMETHOXAZOLE-TRIMETHOPRIM Inactive CIPRO 500 MG TAB 1 tablet by mouth twice daily CIPRO 500 MG TAB 429883 CIPROFLOXACIN HCL Inactive AZITHROMYCIN 250 MG TABS 2 po qd x 1 day, then 1 po qd x 4 days AZITHROMYCIN 250 MG TABS 1529780 AZITHROMYCIN Inactiv e FLAGYL 500 MG TAB 1 tablet by mouth bid FLAGYL 500 MG TAB 607695 METRONIDAZOLE Inactive AZITHROMYCIN 250 MG TABS 2 po qd x 1 day, then 1 po qd x 4 days AZITHROMYCIN 250 MG TABS 1190439 AZITHROMYCIN Inactiv e AMOXICILLIN 500 MG ORAL CAPS 2 po BID x 10 days 09/12 AMOXICILLIN 500 MG ORAL CAPS 158996 AMOXICILLIN Inactive Immunizations Vaccine Administration Date Value [...] d blood pressure, diastolic 68 mm[Hg] BP matehw blood pressure, systolic 122 mm[Hg] BP sys [...] CBC W/DIFF, Comp. Metabolic Panel, Qual [facility] [place] - Chemistry sodium, serum 139 mmol/L 238-620 3988/10/21 carbon dioxide, venous blood 33.5 mmol/L 21.0-32 [...] CBC W/DIFF, Comp. Metabolic Panel, Qual [facility] [place] - Hematology leukocyte [...] PANEL - Chemistry cholesterol, serum 192 mg/dL 263-899 0594/02/20 HDL cholesterol, serum 31 mg/dL > OR [...] 11 .0-15.0 platelet count 218 THOUSAND/UL 10*3/mm3 840-495 6633/02/20 mean platelet volume 9.7 fL 7.5-12.5 Lab Report: Chlamydia/GC APTIMA/[id number] - Lab chlamydia DNA probe NOT DETECTED NOT DETECTED Lab Report: Chlamydia/GC APTIMA/[id number] - Microbiology Neisseria gonorrhoeae DNA probe NOT [...] 5.0-8.5 Encounters Code Encounter Date Provider Facility CPT-30764 Level 3 Est. Patient 13:05:44 CDT Paul Hamlin MD [facility] CPT-52948 Level 3 Est. Patient 11:29:55 CDT Checo Conklin MD [facility] CPT-66586 Level 4 Est. Patient 11:08:12 [employer] Checo Conklin MD [facility] CPT-02558 Level 4 Est. Patient 16:06:48 [employer] Checo Conklin MD [facility] CPT-58426 Level 3 Est. Patient 09:11:49 CDT Efren almendarez [facility] CPT-19352 Level 2 Est. Patient 19:53:27 CDT Tanner hill MD [facility] CPT-24533 Level 3 Est. Patient 09:15:34 CDT Efren almendarez [facility] CPT-13768 Level 3 Est. Patient 11:28:51 [employer] Efren almendarez [facility] CPT-05825 Level 4 Est. Patient 13:55:46 [employer] Checo Conklin MD [facility] CPT-98038 Level 4 Est. Patient 17:10:53 CDT Checo Conklin MD [facility] CPT-93437 Level 3 Est. Patient 15:56:22 CDT Checo Conklin MD [facility] CPT-64946 Level 3 Est. Patient 15:29:07 CDT Checo Conklin MD [facility] CPT-32888 Level 3 Est. Patient 14:38:41 CDT Checo Conklin MD [facility] CPT-85705 Level 3 Est. Patient 15:22:03 [employer] Thomas reynolds DO [facility] CPT-57175 Level 3 Est. Patient 13:34:17 [employer] Checo Conklin MD [facility] CPT-59225 Level 3 Est. Patient 12:29:32 CDT Dangelo arroyo MD [facility] CPT-50147 Level 3 Est. Patient 16:53:02 CDT Checo Conklin MD [facility] CPT-27758 Level 3 Est. Patient 16:37:13 CDT Checo Conklin MD [facility] CPT-08877 Level 3 Est. Patient 16:16:59 CDT Paul Hamlin MD [facility] CPT-73861 Level 3 Est. Patient 14:20:13 CDT Dangelo arroyo MD [facility] CPT-21555 Level 4 Est. Patient 11:29:33 CDT Checo Conklin MD [facility] CPT-00333 Level 3 Est. Patient 17:08:31 CDT Checo Conklin MD [facility] CPT-07498 Level 3 Est. Patient 16:50:42 [employer] Checo Conklin MD [facility] CPT-07766 Level 4 Est. Patient 09:26:08 [employer] Checo Conklin MD [facility] CPT-07611 Level 3 Est. Patient 11:37:10 CDT Checo Conklin MD [facility] CPT-95071 Level 4 Est. Patient 14:07:38 CDT Checo Conklin MD [facility] CPT-19962 Level 3 Est. Patient 09:54:41 CDT Checo Conklin MD [facility] CPT-90359 Level 3 Est. Patient 11:10:54 CDT Paul Hamlin MD [facility] CPT-52690 Level 3 Est. Patient 14:16:56 [employer] Checo Conklin MD [facility] CPT-22933 Level 3 Est. Patient 11:04:11 [employer] Checo Conklin MD [facility] CPT-23434 Level 3 Est. Patient 17:09:26 CDT Dangelo arroyo MD [facility] CPT-68976 Level 3 Est. Patient 16:54:37 CDT Checo Conklin MD [facility] Procedures Code Procedure Name Date Entry Date Standard Desc ription CPT-87460 UA w micro - LAB USE ONLY 17:06:46 CDT 2015 CPT-94856 [facility] Qual - LAB USE ONLY 17:06:46 CDT 05/06 CPT-50940 CMP - LAB USE ONLY 17:06:46 CDT CPT-17539 CBC with Diff - LAB USE ONLY 17:06:45 CDT 2 CPT-89713 Venipuncture Draw Fee 17:06:45 CDT CPT-LR Lesion Removal 19:53:27 CDT CPT-OV Office Visit 11:31:28 CDT CPT-82356 Tubersol 09:39:29 CDT CPT-J2550 Phenergan 25 mg (Promethazine) 13:59:02 [employer] CPT-J1885 Toradol 60 mg (Ketorolac) 13:59:02 [employer] 2012
--- OUTSIDE RECORDS SUMMARY | 2019-09-29 02:27 | XMS REPORT | Clinical Summary ---
[...] Sinusitis, acute ICD-461.9 Inactive Checo Ortiz MD Sinusitis ICD-461.9 Inactive Checo Conklin MD Medication List Medication Instructions Start Date Stop Date Generic Name NDC Status Provider Patient Instruction PAROXETINE HCL 20 MG ORAL TABS 1.5 po qd PAROX ETINE HCL [id number] Active Checo Conklin MD Active FLUTICASONE PROPIONATE 50 MCG/ACT NASAL SUSP 2 sprays/ nostril qd PRN Congestion/Allergies FLUTICASONE PROPIONATE 6608246536 5 No Longer Active Checo Conklin MD Active AMOXICILLIN 500 MG ORAL CAPS 2 po BID x 10 days 09/12 AMOXICILLIN 47893254465 No Longer Active Checo Conklin MD Activ e MIRALAX ORAL POWD 8.5 to 17g po qd PRN Constipation POLYETHYLENE GLYCOL 3350 18229152472 Active Checo Conklin MD Active CLARITIN 10 MG TAB 1 tablet by mouth daily as needed for allergi es LORATADINE 95323032601 No Longer Active Checo Conklin MD Active BACTRIM DS 800-160 MG TAB 1 tab by mouth twice daily 2 TRIMETHOPRIM-SULFAMETHOXAZOLE 63645353582 No Longer Active Tanner Carrillo MD Active DIFLUCAN 150 MG TAB 1 tablet by mouth qod FLUCO NAZOLE 91736525529 No Longer Active Jillina Frazell RETAIL PHARMACIST Active AZITHROMYCIN 250 MG TABS 2 po qd x 1 day, then 1 po qd x 4 days AZITHROMYCIN 90726218027 No Longer Active [employer] Medel APRN Active FLAGYL 500 MG TAB 1 tablet by mouth bid METRONI DAZOLE 61736116535 No Longer Active Checo Conklin MD Active FOCALIN XR 10 MG ORAL [id number] 1 po q a.m. DEX METHYLPHENIDATE HCL 77905147400 Active Checo Conklin MD Active MAGNESIUM CITRATE 1.745 GM/30ML ORAL SOLN 150ml po BID PRN C onstipation MAGNESIUM CITRATE 22734437892 No Longer Active Checo Conklin MD Active BACTROBAN 2 % CREAM Apply to affected area BID for up to 10 days MUPIROCIN CALCIUM 06900019533 No Longer Active Checo Conklin MD Active HYDROCODONE-ACETAMINOPHEN 5-325 MG TABS 1 tab by mouth every 6 hours as needed HYDROCODONE-ACETAMINOPHEN 22547538044 No Longer Activ e Checo Conklin MD Active IBUPROFEN 800 MG TABS 1 tab every 8 hours with food 20 31/03/21 IBUPROFEN 22608476941 No Longer Active Checo Conklin MD Activ e DIFLUCAN 150 MG TAB 1 tablet by mouth if needed, hold until symptoms start FLUCONAZOLE 83172425305 No Longer Active Checo Ortiz MD Active BACTRIM DS 800-160 MG TAB 1 tab by mouth twice daily 2 TRIMETHOPRIM-SULFAMETHOXAZOLE 55074929274 No Longer Active Corry leong LPN Active HYDROCODONE-ACETAMINOPHEN 5-325 MG TABS 0.5 to 1 tab b y mouth every 6 hours as needed HYDROCODONE-ACETAMINOPHEN 39501623029 No Longer Active Checo Conklin MD Active ONDANSETRON [address] one tablet on tongue and allow to dissolve every 6 hours as needed for vomitting ONDANSETRO N 41515042875 No Longer Active Checo Conklin MD Active COMPRO 25 MG RECTAL SUPP insert or apply one supposit ory rectally as directed every 12 hours as needed for nausea PROCHLORPERA ZINE 09914711169 No Longer Active Checo Conklin MD Active SUMATRIPTAN SUCCINATE 100 MG ORAL TABS Take one PRN for migrane SUMATRIPTAN SUCCINATE 34781215480 No Longer Active Checo Conklin MD Active TRAVEL SICKNESS 25 MG ORAL CHEW chew and swallow one t ablet every 6 hours as needed MECLIZINE HCL 92968353116 No Longer Active Joe Conklin MD Active BUPROPION HCL ER (SR) 100 MG ORAL [id number] take one t ablet by mouth one time daily for one week then take 1 two times daily BUPROPION HCL 05789639456 No Longer Active Checo Conklin MD Activ e TERBINAFINE HCL 250 MG ORAL TABS take one table PO one time abran y TERBINAFINE HCL 19319403485 No Longer Active Checo Conklin MD Active METOCLOPRAMIDE HCL 10 MG ORAL TABS take one PO tid PRN nausea 20 29/12/14 METOCLOPRAMIDE HCL 62690619816 No Longer Active Checo Conklin MD Active DICLOFENAC SODIUM 75 MG TBEC 1 tablet by mouth twice daily P RN Knee pain DICLOFENAC SODIUM 14526209174 No Longer Active Checo Conklin MD Active LAMISIL 250 MG TAB 1 po qd TERBINAFINE HCL 548 76618735 No Longer Active Checo Conklin MD Active REGLAN 10 MG TAB 1 po TID PRN Nausea METOCLOPRA MIDE HCL 77560634177 No Longer Active Checo Conklin MD Active CELEXA 20 MG TABS 1 tablet by mouth daily CITALOPRAM HYDROBROMIDE 43329489262 No Longer Active Checo Conklin MD Activ e AZITHROMYCIN 250 MG TABS 2 po qd x 1 day, then 1 po qd x 4 days AZITHROMYCIN 23436776497 No Longer Active Checo Conklin MD Active HYDROCODONE-ACETAMINOPHEN 5-325 MG TABS 1 po q 6hr PRN Pain 2013 HYDROCODONE-ACETAMINOPHEN 63975189606 No Longer Active Lenora Conklin MD Active PHENAZOPYRIDINE HCL 200 MG TABS take 1 tab po TID for bladder pa in PHENAZOPYRIDINE HCL 87192978680 No Longer Active Checo Joshua Active CIPRO 500 MG TAB 1 tablet by mouth twice daily CIPROFLOXACIN HCL 61599024187 No Longer Active Dangelo Rangel MD Active HYDROCODONE-ACETAMINOPHEN 5-325 MG TABS 1/2 to 1 po q 4 hour s prn cough HYDROCODONE-ACETAMINOPHEN 45166950355 No Longer Activ e Dangelo Rangel MD Active BACTRIM DS 800-160 MG TABS 1 po BID x 7 days 0 SULFAMETHOXAZOLE-TRIMETHOPRIM 73402034414 No Longer Active Checo Conklin MD Active PREDNISONE 20 MG TAB 2 tabs daily for 3 days, 1 t ab daily for 3 days, 1/2 tab daily for 2 days PREDNISONE 04056192085 No Longer Active Checo Conklin MD Active TRIAMCINOLONE ACETONIDE 0.1 % OINT Apply to affected a reas TID for up to 2 weeks TRIAMCINOLONE ACETONIDE 86227349877 No Longer A ctive Checo Conklin MD Active CEFDINIR 300 MG CAPS by mouth twice a day CEFDI JAZZY 85658608280 No Longer Active Dangelo Rangel MD Active BUPROPION HCL (SMOKING DETER) 150 MG [id number] 1 a day for 1 week then 1 twice a day BUPROPION HCL (SMOKING DETER) 69939925358 No Lo nger Active Checo Conklin MD Active SIMVASTATIN 20 MG TABS 1 po qd SIMVASTATIN 4938818620 5 Active Checo Conklin MD Active CHANTIX STARTING MONTH KARTHIK 0.5 MG X 11 & 1 MG X 42 TAB S 0.5mg daily for 3 days, then 0.5mg BID for 4 days, then 1mg BID VARENICLINE TARTRATE 12085259405 No Longer Active Checo Conklin MD Activ e XANAX 0.5 MG TABS 1 po BID PRN anxiety ALPRAZOLAM 00412429841 Active Checo Conklin MD Active CONCERTA 18 MG CR-TABS 1 po q a.m. METHYLPHENID ATE HCL 86023663589 No Longer Active Checo Conklin MD Active AMBIEN 5 MG TAB 1 po qHS PRN Insomnia ZOLPIDEM TARTRATE 38819413015 Active Checo Conklin MD Active TRAZODONE HCL 100 MG TAB 0.5 to 1 po qHS PRN Insomnia TRAZODONE HCL 36800944872 No Longer Active Checo Conklin MD Acti ve FIORICET 325-50-40 MG TAB 1 tablet by mouth four times daily as needed [id number] 78330821013 No Longer Active Checo Conklin MD Active PHENERGAN CREAM* 25mg applied to wrist q6hr PRN Nausea PHENERGAN CREAM* No Longer Active Checo Conklin MD A ctive FLONASE 50 MCG/ACT SUSP 1 spray each nostril am and hs FLUTICASONE PROPIONATE 43546232373 No Longer Active Checo Simms e ANTIPYRINE-BENZOCAINE 5.4-1.4 % SOLN 1-2 drops in affected ear BENZOCAINE-ANTIPYRINE 31169094681 No Longer Active Checo Conklin MD Active CEFDINIR 300 MG CAPS 1 po bid CEFDINIR 23778681 120 No Longer Active Checo Conklin MD Active PREDNISONE 20 MG TAB 2 tabs daily for 3 days, 1 t ab daily for 3 days, 1/2 tab daily for 2 days PREDNISONE 93576585849 No Longer Active Aracelis Conklin MD Active AZITHROMYCIN 250 MG TABS 2 po qd x 1 day, then 1 po qd x 4 days AZITHROMYCIN 84107222465 No Longer Active Checo Conklin MD Active PREDNISONE 20 MG TAB 2 tabs daily for 3 days, 1 t ab daily for 3 days, 1/2 tab daily for 2 days PREDNISONE 17229383519 No Longer Active Checo Conklin MD Active ZITHROMAX Z-KARTHIK 250 MG TABS 2 today, then 1 daily for 4 days 201 09/18/28 AZITHROMYCIN 16890217144 No Longer Active Paul Hamlin MD Active FOCALIN XR 10 MG [id number] 1 po q a.m. D EXMETHYLPHENIDATE HCL 92808344056 No Longer Active Paul Hamlin MD Activ e PERCOCET 10-325 MG TABS 1 tablet every 6 hours as needed for pain OXYCODONE-ACETAMINOPHEN 17714482438 No Longer Active Paul Hamlin MD Active LORTAB 5 5-500 MG TABS 1/2 to 1 tablet by mouth flaquito ry 4 hours as needed for pain HYDROCODONE-ACETAMINOPHEN 15186784229 No Longer Active Checo Conklin MD Active FOCALIN XR 15 MG [id number] 1 po q a.m. D EXMETHYLPHENIDATE HCL 22981477342 No Longer Active Checo Conklin MD Activ e ZOFRAN ODT 4 MG TBDP 1 po q6hr PRN Nausea ONDAN SETRON 60213110383 No Longer Active Checo Conklin MD Active PERCOCET 5-325 MG TABS 1 tablet by mouth every 6 hours as needed OXYCODONE-ACETAMINOPHEN 96114472248 No Longer Active Checo Conklin MD Active PYRIDIUM 200 MG TABS take 1 tab po TID prn urinary pain. 0 PHENAZOPYRIDINE HCL 34273699303 No Longer Active Checo Conklin MD Active FLUCONAZOLE 150 MG TABS take 1 tab po qday once 04/06 FLUCONAZOLE 43512550491 No Longer Active Dangelo Rangel MD Acti ve CIPRO 500 MG TAB 1 tablet by mouth twice daily CIPROFLOXACIN HCL 68975966998 No Longer Active Dangelo Rangel MD Active PYRIDIUM 200 MG TABS take 1 tab po TID prn urinary pain. 0 PYRIDIUM 200 MG TABS 9549351 PHENAZOPYRIDINE HCL Inactive PERCOCET 5-325 MG TABS 1 tablet by mouth every 6 hours as needed PERCOCET 5-325 MG TABS 4165134 OXYCODONE-ACETAMINOPHEN I nactive ZOFRAN ODT 4 MG TBDP 1 po q6hr PRN Nausea ZOFRAN ODT 4 MG TBDP 874508 ONDANSETRON Inactive FOCALIN XR 15 MG [id number] 1 po q a.m. F OCALIN XR 15 MG [id number] DEXMETHYLPHENIDATE HCL Inactive LORTAB 5 5-500 MG TABS 1/2 to 1 tablet by mouth flaquito ry 4 hours as needed for pain LORTAB 5 5-500 MG TABS HYDROCODONE-A CETAMINOPHEN Inactive PERCOCET 10-325 MG TABS 1 tablet every 6 hours as needed for pain PERCOCET 10-325 MG TABS 5733390 OXYCODONE-ACETAMINOPHEN Inactive FOCALIN XR 10 MG [id number] 1 po q a.m. F OCALIN XR 10 MG [id number] DEXMETHYLPHENIDATE HCL Inactive CEFDINIR 300 MG CAPS 1 po bid CEFDINIR 300 MG CAPS 20 0346 CEFDINIR Inactive ANTIPYRINE-BENZOCAINE 5.4-1.4 % SOLN 1-2 drops in affected ear ANTIPYRINE-BENZOCAINE 5.4-1.4 % SOLN BENZOCAINE-ANTIPYRINE I nactive FLONASE 50 MCG/ACT SUSP 1 spray each nostril am and hs FLONASE 50 MCG/ACT SUSP 4166849 FLUTICASONE PROPIONATE Inactive PHENERGAN CREAM* 25mg applied to wrist q6hr PRN Nausea PHENERGAN CREAM* Inactive FIORICET 325-50-40 MG TAB 1 tablet by mouth four times daily as needed FIORICET 325-50-40 MG TAB ACETAMINOPHEN-C AFF-BUTALBITAL Inactive TRAZODONE HCL 100 MG TAB 0.5 to 1 po qHS PRN Insomnia TRAZODONE HCL 100 MG TAB 817222 TRAZODONE HCL Inactive CONCERTA 18 MG CR-TABS [...] s prn cough HYDROCODONE-ACETAMINOPHEN 5-325 MG TABS 312991 HYDROCODONE-ACETAMINOPHEN Inactive PHENAZOPYRIDINE HCL 200 MG TABS take 1 tab po TID for bladder pa in PHENAZOPYRIDINE HCL 200 MG TABS 3031259 PHENAZOPYRIDINE HCL Inactive HYDROCODONE-ACETAMINOPHEN 5-325 MG TABS 1 po q 6hr PRN Pain 2013 HYDROCODONE-ACETAMINOPHEN 5-325 MG TABS 739093 HYDROCODONE-ACETAMINOPHEN Inactive CELEXA 20 MG TABS 1 tablet by mouth daily CELEXA 20 MG TABS 307013 CITALOPRAM HYDROBROMIDE Inactive REGLAN 10 MG TAB 1 po TID PRN Nausea REGLAN 10 MG TAB 771371 METOCLOPRAMIDE HCL Inactive LAMISIL 250 MG TAB 1 po qd LAMISIL 250 MG TAB 825821 TERBINAFINE HCL Inactive DICLOFENAC SODIUM 75 MG TBEC 1 tablet by mouth twice daily P RN Knee pain DICLOFENAC SODIUM 75 MG TBEC 364324 DICLOFENAC S ODIUM Inactive METOCLOPRAMIDE HCL 10 MG ORAL TABS take one PO tid PRN nausea 20 29/12/14 METOCLOPRAMIDE HCL 10 MG ORAL TABS 094291 METOCLOPRAMID E HCL Inactive TERBINAFINE HCL 250 MG ORAL TABS take one table PO one time abran y TERBINAFINE HCL 250 MG ORAL TABS 617699 TERBINAFINE HCL Inactive BUPROPION HCL ER (SR) 100 MG ORAL [id number] take one t ablet by mouth one time daily for one week then take 1 two times daily BUPROPION HCL ER (SR) 100 MG ORAL [id number] BUPROPION HCL Inacti ve TRAVEL SICKNESS 25 MG ORAL CHEW chew and swallow one t ablet every 6 hours as needed TRAVEL SICKNESS 25 MG ORAL CHEW 594069 MECLIZINE HCL Inactive SUMATRIPTAN SUCCINATE 100 MG ORAL TABS Take one PRN for migrane SUMATRIPTAN SUCCINATE 100 MG ORAL TABS 666030 SUMATRIPT AN SUCCINATE Inactive COMPRO 25 MG RECTAL SUPP insert or apply one supposit ory rectally as directed every 12 hours as needed for nausea COMP RO 25 MG RECTAL SUPP 564554 PROCHLORPERAZINE Inactive ONDANSETRON [address] one tablet on tongue and allow to dissolve every 6 hours as needed for vomitting ON DANSETRON 8 MG ORAL TBDP 349297 ONDANSETRON Inactive HYDROCODONE-ACETAMINOPHEN 5-325 MG TABS 0.5 to 1 tab b y mouth every 6 hours as needed HYDROCODONE-ACETAMINOPHEN 5-325 MG TABS 8 39599 HYDROCODONE-ACETAMINOPHEN Inactive BACTRIM DS 800-160 MG TAB 1 tab by mouth twice daily 2 BACTRIM DS 800-160 MG TAB 875730 TRIMETHOPRIM-SULFAMETHOXAZOLE Inac tive DIFLUCAN 150 MG TAB 1 tablet by mouth if needed, hold until symptoms start DIFLUCAN 150 MG TAB 19760325 FLUCONAZOLE Inactive IBUPROFEN 800 MG TABS 1 tab every 8 hours with food 31/03/21 IBUPROFEN 800 MG TABS 423980 IBUPROFEN Inactive HYDROCODONE-ACETAMINOPHEN 5-325 MG TABS 1 tab by mouth every 6 hours as needed HYDROCODONE-ACETAMINOPHEN 5-325 MG TABS 785640 HYDROCODONE-ACETAMINOPHEN Inactive BACTROBAN 2 % CREAM Apply to affected area BID for up to 10 days BACTROBAN 2 % CREAM 638250 MUPIROCIN CALCIUM Inactive MAGNESIUM CITRATE 1.745 GM/30ML ORAL SOLN 150ml po BID PRN C onstipation MAGNESIUM CITRATE 1.745 GM/30ML ORAL SOLN 107641 0 MAGNESIUM CITRATE Inactive DIFLUCAN 150 MG TAB 1 tablet by mouth qod DIFLUCAN 150 MG TAB 765859 FLUCONAZOLE Inactive BACTRIM DS 800-160 MG TAB 1 tab by mouth twice daily 2 BACTRIM DS 800-160 MG TAB 773811 TRIMETHOPRIM-SULFAMETHOXAZOLE Inac tive CLARITIN 10 MG TAB 1 tablet by mouth daily as needed for allergi es CLARITIN 10 MG TAB 328096 LORATADINE Inactive FLUTICASONE PROPIONATE 50 MCG/ACT NASAL SUSP 2 sprays/ nostril qd PRN Congestion/Allergies FLUTICASONE PROPION ATE 50 MCG/ACT NASAL SUSP 6912382 FLUTICASONE PROPIONATE Inactive CIPRO 500 MG TAB 1 tablet by mouth twice daily CIPRO 500 MG TAB 148303 CIPROFLOXACIN HCL Inactive FLUCONAZOLE 150 MG TABS take 1 tab po qday once 04/06 FLUCONAZOLE 150 MG TABS 400352 FLUCONAZOLE Inactive ZITHROMAX Z-KARTHIK 250 MG TABS 2 today, then 1 daily for 4 days 201 09/18/28 ZITHROMAX Z-KARTHIK 250 MG TABS 2416986 AZITHROMYCIN Inac tive PREDNISONE 20 MG TAB 2 tabs daily for 3 days, 1 t ab daily for 3 days, 1/2 tab daily for 2 days PREDNISONE 20 MG TAB 780732 PREDNISON E Inactive AZITHROMYCIN 250 MG TABS 2 po qd x 1 day, then 1 po qd x 4 days AZITHROMYCIN 250 MG TABS 1734201 AZITHROMYCIN Inactiv e PREDNISONE 20 MG TAB 2 tabs daily for 3 days, 1 t ab daily for 3 days, 1/2 tab daily for 2 days PREDNISONE 20 MG TAB 578686 PREDNISON E Inactive CEFDINIR 300 MG CAPS by mouth twice a day CEFDINIR 300 MG CAPS 654542 CEFDINIR Inactive TRIAMCINOLONE ACETONIDE 0.1 % OINT Apply to affected a reas TID for up to 2 weeks TRIAMCINOLONE ACETONIDE 0.1 % OINT 298563 6 TRIAMCINOLONE ACETONIDE Inactive PREDNISONE 20 MG TAB 2 tabs daily for 3 days, 1 t ab daily for 3 days, 1/2 tab daily for 2 days PREDNISONE 20 MG TAB 754572 PREDNISON E Inactive BACTRIM DS 800-160 MG TABS 1 po BID x 7 days 0 BACTRIM DS 800-160 MG TABS 550973 SULFAMETHOXAZOLE-TRIMETHOPRIM Inactive CIPRO 500 MG TAB 1 tablet by mouth twice daily CIPRO 500 MG TAB 590097 CIPROFLOXACIN HCL Inactive AZITHROMYCIN 250 MG TABS 2 po qd x 1 day, then 1 po qd x 4 days AZITHROMYCIN 250 MG TABS 6607526 AZITHROMYCIN Inactiv e FLAGYL 500 MG TAB 1 tablet by mouth bid FLAGYL 500 MG TAB 990449 METRONIDAZOLE Inactive AZITHROMYCIN 250 MG TABS 2 po qd x 1 day, then 1 po qd x 4 days AZITHROMYCIN 250 MG TABS 3788422 AZITHROMYCIN Inactiv e AMOXICILLIN 500 MG ORAL CAPS 2 po BID x 10 days 09/12 AMOXICILLIN 500 MG ORAL CAPS 179253 AMOXICILLIN Inactive Immunizations Vaccine Administration Date Value [...] Report: CBC W/DIFF, Comp. Metabolic Panel, Qual [facility] - Chemistry sodium, serum 139 mmol/L 285-191 0038/10/21 carbon dioxide, venous blood 33.5 mmol/L 21.0-32 [...] Report: CBC W/DIFF, Comp. Metabolic Panel, Qual [facility] - Hematology leukocyte count, blood 7.9 10^3/MM^3 [...] PANEL - Chemistry cholesterol, serum 192 mg/dL 221-350 3211/02/20 HDL cholesterol, serum 31 mg/dL > OR [...] 11 .0-15.0 platelet count 218 THOUSAND/UL 10*3/mm3 025-642 1378/02/20 mean platelet volume 9.7 fL 7.5-12.5 Lab Report: Chlamydia/GC [facility]/[id number] - Lab chlamydia DNA probe NOT DETECTED NOT DETECTED Lab Report: Chlamydia/[facility]/72261 - Microbiology Neisseria gonorrhoeae DNA probe NOT [...] 5.0-8.5 Encounters Code Encounter Date Provider Facility CPT-49110 Level 3 Est. Patient 11:29:55 CDT Checo Conklin MD [facility]-17490 Level 4 Est. Patient 11:08:12 ASSISTANT DIRECTOR Checo Conklin MD [facility]-93666 Level 4 Est. Patient 16:06:48 ASSISTANT DIRECTOR Checo Conklin MD [facility]-14919 Level 3 Est. Patient 09:11:49 CDT Efren almendarez [facility]-14316 Level 2 Est. Patient 19:53:27 CDT Tanner hill MD [facility]-97742 Level 3 Est. Patient 09:15:34 CDT Efren almendarez [facility]-33360 Level 3 Est. Patient 11:28:51 ASSISTANT DIRECTOR Efren almendarez [facility]-78748 Level 4 Est. Patient 13:55:46 ASSISTANT DIRECTOR Checo Conklin MD [facility] CPT-03611 Level 4 Est. Patient 17:10:53 CDT Checo Conklin MD [facility] CPT-53280 Level 3 Est. Patient 15:56:22 CDT Checo Conklin MD [facility] CPT-03789 Level 3 Est. Patient 15:29:07 CDT Checo Conklin MD [facility] CPT-61730 Level 3 Est. Patient 14:38:41 CDT Checo Conklin MD [facility] CPT-90231 Level 3 Est. Patient 15:22:03 ASSISTANT DIRECTOR Thomas reynolds DO [facility] CPT-79382 Level 3 Est. Patient 13:34:17 ASSISTANT DIRECTOR Checo Conklin MD [facility] CPT-39016 Level 3 Est. Patient 12:29:32 CDT Dangelo arroyo MD [facility] CPT-59306 Level 3 Est. Patient 16:53:02 CDT Checo Conklin MD [facility] CPT-80528 Level 3 Est. Patient 16:37:13 CDT Checo Conklin MD [facility] CPT-87039 Level 3 Est. Patient 16:16:59 CDT Paul Hamlin MD [facility] CPT-14651 Level 3 Est. Patient 14:20:13 CDT Dangelo arroyo MD [facility] CPT-49305 Level 4 Est. Patient 11:29:33 CDT Checo Conklin MD [facility] CPT-37646 Level 3 Est. Patient 17:08:31 CDT Checo Conklin MD [facility] CPT-69807 Level 3 Est. Patient 16:50:42 ASSISTANT DIRECTOR Checo Conklin MD [facility] CPT-50827 Level 4 Est. Patient 09:26:08 ASSISTANT DIRECTOR Checo Conklin MD [facility] CPT-88229 Level 3 Est. Patient 11:37:10 CDT Checo Conklin MD [facility] CPT-29630 Level 4 Est. Patient 14:07:38 CDT Checo Conklin MD [facility] CPT-11526 Level 3 Est. Patient 09:54:41 CDT Checo Conklin MD [facility] CPT-44032 Level 3 Est. Patient 11:10:54 CDT Paul Hamlin MD [facility] CPT-46906 Level 3 Est. Patient 14:16:56 ASSISTANT DIRECTOR Checo Conklin MD [facility] CPT-72554 Level 3 Est. Patient 11:04:11 ASSISTANT DIRECTOR Checo Conklin MD [facility] CPT-72381 Level 3 Est. Patient 17:09:26 CDT Dangelo arroyo MD [facility] CPT-43575 Level 3 Est. Patient 16:54:37 CDT Checo Conklin MD [facility] Procedures Code Procedure Name Date Entry Date Standard Desc ription CPT-92481 UA w micro - LAB USE ONLY 17:06:46 CDT 2015 CPT-58803 [facility] Qual - LAB USE ONLY 17:06:46 CDT 05/06 CPT-10614 CMP - LAB USE ONLY 17:06:46 CDT CPT-21578 CBC with Diff - LAB USE ONLY 17:06:45 CDT 2 CPT-42177 Venipuncture Draw Fee 17:06:45 CDT CPT-LR Lesion Removal 19:53:27 CDT CPT-OV Office Visit 11:31:28 CDT CPT-01836 Tubersol 09:39:29 CDT CPT-J2550 Phenergan 25 mg (Promethazine) 13:59:02 ASSISTANT DIRECTOR CPT-J1885 Toradol 60 mg (Ketorolac) 13:59:02 ASSISTANT DIRECTOR 2012
--- OUTSIDE RECORDS SUMMARY | 2019-09-29 02:27 | XMS REPORT | Clinical Summary ---
Author Author Admin, Bethany Ayala [facility] Address Unknown Phone Unavailable [...] 1 tablet by mouth bid METRONI DAZOLE [id number] No Longer Active Checo Conklin MD Active FOCALIN XR 10 MG ORAL [id number] 1 po q a.m. DEX METHYLPHENIDATE HCL 96347149323 Active Checo Conklin MD Active MAGNESIUM CITRATE 1.745 GM/30ML ORAL SOLN 150ml po BID PRN C onstipation MAGNESIUM CITRATE 88446608608 No Longer Active Checo Conklin MD Active BACTROBAN 2 % CREAM Apply to affected area BID for up to 10 days MUPIROCIN CALCIUM 61158354765 No Longer Active Checo Conklin MD Active HYDROCODONE-ACETAMINOPHEN 5-325 MG TABS 1 tab by mouth every 6 hours as needed HYDROCODONE-ACETAMINOPHEN 01567699933 No Longer Activ e Checo Conklin MD Active IBUPROFEN 800 MG TABS 1 tab every 8 hours with food 31/03/21 IBUPROFEN 92293526681 No Longer Active Checo Conklin MD Activ e DIFLUCAN 150 MG TAB 1 tablet by mouth if needed, hold until symptoms start FLUCONAZOLE 30153846121 No Longer Active Checo Ortiz MD Active BACTRIM DS 800-160 MG TAB 1 tab by mouth twice daily 2 TRIMETHOPRIM-SULFAMETHOXAZOLE 64244115043 No Longer Active Corry leong LPN Active MIRALAX PACK 1 po qd PRN Constipation POLYETHYL JOEL GLYCOL 3350 84145219151 Active Checo Conklin MD Active HYDROCODONE-ACETAMINOPHEN 5-325 MG TABS 0.5 to 1 tab b y mouth every 6 hours as needed HYDROCODONE-ACETAMINOPHEN 34947330102 No Longer Active Checo Conklin MD Active ONDANSETRON [address] one tablet on tongue and allow to dissolve every 6 hours as needed for vomitting ONDANSETRO N 44142886228 No Longer Active Checo Conklin MD Active COMPRO 25 MG RECTAL SUPP insert or apply one supposit ory rectally as directed every 12 hours as needed for nausea PROCHLORPERA ZINE 80731045738 No Longer Active Checo Conklin MD Active SUMATRIPTAN SUCCINATE 100 MG ORAL TABS Take one PRN for migrane SUMATRIPTAN SUCCINATE 23958873705 No Longer Active Checo Conklin MD Active TRAVEL SICKNESS 25 MG ORAL CHEW chew and swallow one t ablet every 6 hours as needed MECLIZINE HCL 07037151967 No Longer Active Joe Conklin MD Active BUPROPION HCL ER (SR) 100 MG ORAL [id number] take one t ablet by mouth one time daily for one week then take 1 two times daily BUPROPION HCL 39057714027 No Longer Active Checo Conklin MD Activ e TERBINAFINE HCL 250 MG ORAL TABS take one table PO one time abran y TERBINAFINE HCL 37454150748 No Longer Active Checo Conklin MD Active METOCLOPRAMIDE HCL 10 MG ORAL TABS take one PO tid PRN nausea 20 29/12/14 METOCLOPRAMIDE HCL 47136887780 No Longer Active Checo Conklin MD Active DICLOFENAC SODIUM 75 MG TBEC 1 tablet by mouth twice daily P RN Knee pain DICLOFENAC SODIUM 38370254332 No Longer Active Checo Conklin MD Active LAMISIL 250 MG TAB 1 po qd TERBINAFINE HCL 548 60559611 No Longer Active Checo Conklin MD Active REGLAN 10 MG TAB 1 po TID PRN Nausea METOCLOPRA MIDE HCL 17904281159 No Longer Active Checo Conklin MD Active CELEXA 20 MG TABS 1 tablet by mouth daily CITALOPRAM HYDROBROMIDE 73369804191 No Longer Active Checo Conklin MD Activ e AZITHROMYCIN 250 MG TABS 2 po qd x 1 day, then 1 po qd x 4 days AZITHROMYCIN 07380722901 No Longer Active Checo Conklin MD Active HYDROCODONE-ACETAMINOPHEN 5-325 MG TABS 1 po q 6hr PRN Pain 2013 HYDROCODONE-ACETAMINOPHEN 49509684346 No Longer Active Lenora Conklin MD Active PHENAZOPYRIDINE HCL 200 MG TABS take 1 tab po TID for bladder pa in PHENAZOPYRIDINE HCL 78362961674 No Longer Active Checo Joshua Active CIPRO 500 MG TAB 1 tablet by mouth twice daily CIPROFLOXACIN HCL 42705691970 No Longer Active Dangelo Rangel MD Active HYDROCODONE-ACETAMINOPHEN 5-325 MG TABS 1/2 to 1 po q 4 hour s prn cough HYDROCODONE-ACETAMINOPHEN 18149850952 No Longer Activ e Dangelo Rangel MD Active BACTRIM DS 800-160 MG TABS 1 po BID x 7 days 0 SULFAMETHOXAZOLE-TRIMETHOPRIM 18077701179 No Longer Active Checo Conklin MD Active PREDNISONE 20 MG TAB 2 tabs daily for 3 days, 1 t ab daily for 3 days, 1/2 tab daily for 2 days PREDNISONE 21341104309 No Longer Active Checo Conklin MD Active TRIAMCINOLONE ACETONIDE 0.1 % OINT Apply to affected a reas TID for up to 2 weeks TRIAMCINOLONE ACETONIDE 03184248231 No Longer A ctive Checo Conklin MD Active CEFDINIR 300 MG CAPS by mouth twice a day CEFDI JAZZY 19307472700 No Longer Active Dangelo Rangel MD Active BUPROPION HCL (SMOKING DETER) 150 MG [id number] 1 a day for 1 week then 1 twice a day BUPROPION HCL (SMOKING DETER) 06010863536 No Lo nger Active Checo Conklin MD Active SIMVASTATIN 20 MG TABS 1 po qd SIMVASTATIN 9965859491 5 Active Checo Conklin MD Active CHANTIX STARTING MONTH KARTHIK 0.5 MG X 11 & 1 MG X 42 TAB S 0.5mg daily for 3 days, then 0.5mg BID for 4 days, then 1mg BID VARENICLINE TARTRATE 62307359228 No Longer Active Checo Conklin MD Activ e XANAX 0.5 MG TABS 1 po BID PRN anxiety ALPRAZOLAM 37609989300 Active Checo Conklin MD Active CONCERTA 18 MG CR-TABS 1 po q a.m. METHYLPHENID ATE HCL 19349425545 No Longer Active Checo Conklin MD Active AMBIEN 5 MG TAB 1 po qHS PRN Insomnia ZOLPIDEM TARTRATE 89076169216 Active Checo Conklin MD Active TRAZODONE HCL 100 MG TAB 0.5 to 1 po qHS PRN Insomnia TRAZODONE HCL 85643992745 No Longer Active Checo Conklin MD Acti ve FIORICET 325-50-40 MG TAB 1 tablet by mouth four times daily as needed [id number] 09270239716 No Longer Active Checo Conklin MD Active PHENERGAN CREAM* 25mg applied to wrist q6hr PRN Nausea PHENERGAN CREAM* No Longer Active Checo Conklin MD A ctive FLONASE 50 MCG/ACT SUSP 1 spray each nostril am and hs FLUTICASONE PROPIONATE 05221064451 No Longer Active Checo Conklin MD Activ e ANTIPYRINE-BENZOCAINE 5.4-1.4 % SOLN 1-2 drops in affected ear BENZOCAINE-ANTIPYRINE 26401114757 No Longer Active Checo Conklin MD Active CEFDINIR 300 MG CAPS 1 po bid CEFDINIR 19739070 120 No Longer Active Checo Conklin MD Active PREDNISONE 20 MG TAB 2 tabs daily for 3 days, 1 t ab daily for 3 days, 1/2 tab daily for 2 days PREDNISONE 47132500361 No Longer Active M greg Conklin MD Active AZITHROMYCIN 250 MG TABS 2 po qd x 1 day, then 1 po qd x 4 days AZITHROMYCIN 90508399906 No Longer Active Checo Conklin MD Active PREDNISONE 20 MG TAB 2 tabs daily for 3 days, 1 t ab daily for 3 days, 1/2 tab daily for 2 days PREDNISONE 81162664071 No Longer Active Checo Conklin MD Active ZITHROMAX Z-KARTHIK 250 MG TABS 2 today, then 1 daily for 4 days 201 09/18/28 AZITHROMYCIN 86163591382 No Longer Active Paul Hamlin MD Active FOCALIN XR 10 MG [id number] 1 po q a.m. D EXMETHYLPHENIDATE HCL 94620179393 No Longer Active Paul Hamlin MD Activ e PERCOCET 10-325 MG TABS 1 tablet every 6 hours as needed for pain OXYCODONE-ACETAMINOPHEN 85223111381 No Longer Active Paul Hamlin MD Active LORTAB 5 5-500 MG TABS 1/2 to 1 tablet by mouth flaquito ry 4 hours as needed for pain HYDROCODONE-ACETAMINOPHEN 49837089440 No Longer Active Checo Conklin MD Active FOCALIN XR 15 MG [id number] 1 po q a.m. D EXMETHYLPHENIDATE HCL 06010025156 No Longer Active Checo Conklin MD Activ e ZOFRAN ODT 4 MG TBDP 1 po q6hr PRN Nausea ONDAN SETRON 61717979355 No Longer Active Checo Conklin MD Active PERCOCET 5-325 MG TABS 1 tablet by mouth every 6 hours as needed OXYCODONE-ACETAMINOPHEN 76859561443 No Longer Active Checo Conklin MD Active PYRIDIUM 200 MG TABS take 1 tab po TID prn urinary pain. 0 PHENAZOPYRIDINE HCL 21476707489 No Longer Active Checo Conklin MD Active FLUCONAZOLE 150 MG TABS take 1 tab po qday once 04/06 FLUCONAZOLE 91704655660 No Longer Active Dangelo Rangel MD Acti ve CIPRO 500 MG TAB 1 tablet by mouth twice daily CIPROFLOXACIN HCL 81149496571 No Longer Active Dangelo Rangel MD Active PYRIDIUM 200 MG TABS take 1 tab po TID prn urinary pain. 0 PYRIDIUM 200 MG TABS 9134134 PHENAZOPYRIDINE HCL Inactive PERCOCET 5-325 MG TABS 1 tablet by mouth every 6 hours as needed PERCOCET 5-325 MG TABS 2356069 OXYCODONE-ACETAMINOPHEN I nactive ZOFRAN ODT 4 MG TBDP 1 po q6hr PRN Nausea ZOFRAN ODT 4 MG TBDP 368262 ONDANSETRON Inactive FOCALIN XR 15 MG [id number] 1 po q a.m. F OCALIN XR 15 MG [id number] DEXMETHYLPHENIDATE HCL Inactive LORTAB 5 5-500 MG TABS 1/2 to 1 tablet by mouth flaquito ry 4 hours as needed for pain LORTAB 5 5-500 MG TABS HYDROCODONE-A CETAMINOPHEN Inactive PERCOCET 10-325 MG TABS 1 tablet every 6 hours as needed for pain PERCOCET 10-325 MG TABS 1731065 OXYCODONE-ACETAMINOPHEN Inactive FOCALIN XR 10 MG [id number] 1 po q a.m. F OCALIN XR 10 MG [id number] DEXMETHYLPHENIDATE HCL Inactive CEFDINIR 300 MG CAPS 1 po bid CEFDINIR 300 MG CAPS 20 0346 CEFDINIR Inactive ANTIPYRINE-BENZOCAINE 5.4-1.4 % SOLN 1-2 drops in affected ear ANTIPYRINE-BENZOCAINE 5.4-1.4 % SOLN 435833 BENZOCAINE-ANTIPYRINE I nactive FLONASE 50 MCG/ACT SUSP [...] PRN Insomnia TRAZODONE HCL 100 MG TAB 694974 TRAZODONE HCL Inactive CONCERTA 18 MG CR-TABS [...] s prn cough HYDROCODONE-ACETAMINOPHEN 5-325 MG TABS 348615 HYDROCODONE-ACETAMINOPHEN Inactive PHENAZOPYRIDINE HCL 200 MG TABS take 1 tab po TID for bladder pa in PHENAZOPYRIDINE HCL 200 MG TABS 7661515 PHENAZOPYRIDINE HCL Inactive HYDROCODONE-ACETAMINOPHEN 5-325 MG TABS 1 po q 6hr PRN Pain 2013 HYDROCODONE-ACETAMINOPHEN 5-325 MG TABS 353648 HYDROCODONE-ACETAMINOPHEN Inactive CELEXA 20 MG TABS 1 tablet by mouth daily CELEXA 20 MG TABS 103748 CITALOPRAM HYDROBROMIDE Inactive REGLAN 10 MG TAB 1 po TID PRN Nausea REGLAN 10 MG TAB 655901 METOCLOPRAMIDE HCL Inactive LAMISIL 250 MG TAB 1 po qd LAMISIL 250 MG TAB 495168 TERBINAFINE HCL Inactive DICLOFENAC SODIUM 75 MG TBEC 1 tablet by mouth twice daily P RN Knee pain DICLOFENAC SODIUM 75 MG TBEC 257287 DICLOFENAC S ODIUM Inactive METOCLOPRAMIDE HCL 10 MG ORAL TABS take one PO tid PRN nausea 20 29/12/14 METOCLOPRAMIDE HCL 10 MG ORAL TABS 797821 METOCLOPRAMID E HCL Inactive TERBINAFINE HCL 250 MG ORAL TABS take one table PO one time abran y TERBINAFINE HCL 250 MG ORAL TABS 919224 TERBINAFINE HCL Inactive BUPROPION HCL ER (SR) 100 MG ORAL [id number] take one t ablet by mouth one time daily for one week then take 1 two times daily BUPROPION HCL ER (SR) 100 MG ORAL [id number] BUPROPION HCL Inacti ve TRAVEL SICKNESS 25 MG ORAL CHEW chew and swallow one t ablet every 6 hours as needed TRAVEL SICKNESS 25 MG ORAL CHEW 482387 MECLIZINE HCL Inactive SUMATRIPTAN SUCCINATE 100 MG ORAL TABS Take one PRN for migrane SUMATRIPTAN SUCCINATE 100 MG ORAL TABS 407103 SUMATRIPT AN SUCCINATE Inactive COMPRO 25 MG RECTAL SUPP insert or apply one supposit ory rectally as directed every 12 hours as needed for nausea COMP RO 25 MG RECTAL SUPP 358968 PROCHLORPERAZINE Inactive ONDANSETRON [address] one tablet on tongue and allow to dissolve every 6 hours as needed for vomitting ON DANSETRON 8 MG ORAL TBDP 819567 ONDANSETRON Inactive HYDROCODONE-ACETAMINOPHEN 5-325 MG TABS 0.5 to 1 tab b y mouth every 6 hours as needed HYDROCODONE-ACETAMINOPHEN 5-325 MG TABS 8 63489 HYDROCODONE-ACETAMINOPHEN Inactive BACTRIM DS 800-160 MG TAB 1 tab by mouth twice daily 2 BACTRIM DS 800-160 MG TAB 885842 TRIMETHOPRIM-SULFAMETHOXAZOLE Inac tive DIFLUCAN 150 MG TAB 1 tablet by mouth if needed, hold until symptoms start DIFLUCAN 150 MG TAB 909011 FLUCONAZOLE Inactive IBUPROFEN 800 MG TABS 1 tab every 8 hours with food 31/03/21 IBUPROFEN 800 MG TABS 216226 IBUPROFEN Inactive HYDROCODONE-ACETAMINOPHEN 5-325 MG TABS 1 tab by mouth every 6 hours as needed HYDROCODONE-ACETAMINOPHEN 5-325 MG TABS 170340 HYDROCODONE-ACETAMINOPHEN Inactive BACTROBAN 2 % CREAM Apply to affected area BID for up to 10 days BACTROBAN 2 % CREAM 298140 MUPIROCIN CALCIUM Inactive MAGNESIUM CITRATE 1.745 GM/30ML ORAL SOLN 150ml po BID PRN C onstipation MAGNESIUM CITRATE 1.745 GM/30ML ORAL SOLN 545110 0 MAGNESIUM CITRATE Inactive CIPRO 500 MG TAB 1 tablet by mouth twice daily CIPRO 500 MG TAB 072873 CIPROFLOXACIN HCL Inactive FLUCONAZOLE 150 MG TABS take 1 tab po qday once 04/06 FLUCONAZOLE 150 MG TABS 138581 FLUCONAZOLE Inactive ZITHROMAX Z-KARTHIK 250 MG TABS 2 today, then 1 daily for 4 days 201 09/18/28 ZITHROMAX Z-KARTHIK 250 MG TABS 6564648 AZITHROMYCIN Inac tive PREDNISONE 20 MG TAB 2 tabs daily for 3 days, 1 t ab daily for 3 days, 1/2 tab daily for 2 days PREDNISONE 20 MG TAB 873518 PREDNISON E Inactive AZITHROMYCIN 250 MG TABS 2 po qd x 1 day, then 1 po qd x 4 days AZITHROMYCIN 250 MG TABS 4492844 AZITHROMYCIN Inactiv e PREDNISONE 20 MG TAB 2 tabs daily for 3 days, 1 t ab daily for 3 days, 1/2 tab daily for 2 days PREDNISONE 20 MG TAB 532493 PREDNISON E Inactive CEFDINIR 300 MG CAPS by mouth twice a day CEFDINIR 300 MG CAPS 647033 CEFDINIR Inactive TRIAMCINOLONE ACETONIDE 0.1 % OINT Apply to affected a reas TID for up to 2 weeks TRIAMCINOLONE ACETONIDE 0.1 % OINT 115244 6 TRIAMCINOLONE ACETONIDE Inactive PREDNISONE 20 MG TAB 2 tabs daily for 3 days, 1 t ab daily for 3 days, 1/2 tab daily for 2 days PREDNISONE 20 MG TAB 200050 PREDNISON E Inactive BACTRIM DS 800-160 MG TABS 1 po BID x 7 days 0 BACTRIM DS 800-160 MG TABS 147850 SULFAMETHOXAZOLE-TRIMETHOPRIM Inactive CIPRO 500 MG TAB 1 tablet by mouth twice daily CIPRO 500 MG TAB 990701 CIPROFLOXACIN HCL Inactive AZITHROMYCIN 250 MG TABS 2 po qd x 1 day, then 1 po qd x 4 days AZITHROMYCIN 250 MG TABS 2740889 AZITHROMYCIN Inactiv e FLAGYL 500 MG TAB 1 tablet by mouth bid FLAGYL 500 MG TAB 658606 METRONIDAZOLE Inactive Immunizations Vaccine Administration Date Value [...] 5.0-8.5 Encounters Code Encounter Date Provider Facility CPT-11783 Level 4 Est. Patient 13:55:46 [employer] Checo Conklin MD [facility] CPT-98968 Level 4 Est. Patient 17:10:53 CDT Checo Conklin MD [facility] CPT-44372 Level 3 Est. Patient 15:56:22 CDT Checo Conklin MD [facility] CPT-38883 Level 3 Est. Patient 15:29:07 CDT Checo Conklin MD [facility] CPT-44883 Level 3 Est. Patient 14:38:41 CDT Checo Conklin MD [facility] CPT-21961 Level 3 Est. Patient 15:22:03 [employer] Thomas reynolds DO [facility] CPT-37127 Level 3 Est. Patient 13:34:17 [employer] Checo Conklin MD [facility] CPT-34340 Level 3 Est. Patient 12:29:32 CDT Dangelo arroyo MD [facility] CPT-50333 Level 3 Est. Patient 16:53:02 CDT Checo Conklin MD [facility] CPT-76653 Level 3 Est. Patient 16:37:13 CDT Checo Conklin MD [facility] CPT-18817 Level 3 Est. Patient 16:16:59 CDT Paul Hamlin MD [facility] CPT-41020 Level 3 Est. Patient 14:20:13 CDT Dangelo arroyo MD [facility] CPT-62352 Level 4 Est. Patient 11:29:33 CDT Checo Conklin MD [facility] CPT-10350 Level 3 Est. Patient 17:08:31 CDT Checo Conklin MD [facility] CPT-65645 Level 3 Est. Patient 16:50:42 [employer] Checo Conklin MD [facility] CPT-76031 Level 4 Est. Patient 09:26:08 [employer] Checo Conklin MD [facility] CPT-18238 Level 3 Est. Patient 11:37:10 CDT Checo Conklin MD [facility] CPT-44480 Level 4 Est. Patient 14:07:38 CDT Checo Conklin MD [facility] CPT-87259 Level 3 Est. Patient 09:54:41 CDT Checo Conklin MD [facility] CPT-57983 Level 3 Est. Patient 11:10:54 CDT Paul Hamlin MD [facility] CPT-03425 Level 3 Est. Patient 14:16:56 [employer] Checo Conklin MD [facility] CPT-57969 Level 3 Est. Patient 11:04:11 [employer] Checo Conklin MD [facility] CPT-13445 Level 3 Est. Patient 17:09:26 CDT Dangelo arroyo MD [facility] CPT-89825 Level 3 Est. Patient 16:54:37 CDT Checo Conklin MD [facility] Procedures Code Procedure Name Date Entry Date Standard Desc ription CPT-OV Office Visit 11:31:28 CDT CPT-86509 Tubersol 09:39:29 CDT CPT-J2550 Phenergan 25 mg (Promethazine) 13:59:02 [employer] CPT-J1885 Toradol 60 mg (Ketorolac) 13:59:02 [employer] 2012
--- OUTSIDE RECORDS SUMMARY | 2019-09-29 02:28 | XMS REPORT | Clinical Summary ---
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 [...] tab by mouth twice daily 2 TRIMETHOPRIM-SULFAMETHOXAZOLE 45742628734 No Longer Active Tanner Carrillo MD Active DIFLUCAN 150 MG TAB 1 tablet by mouth qod FLUCO NAZOLE 15374535547 No Longer Active Efren Medel APRN Active CLARITIN 10 MG TAB 1 tablet by mouth daily as needed for allergies LORATADINE 21102753179 Active Jillina Lizy NEWS PRODUCER Active AZITHROMYCIN 250 MG TABS 2 po qd x 1 day, then 1 po qd x 4 days AZITHROMYCIN 78306403382 No Longer Active Jillina Lizy RIDDLEN Active FLAGYL 500 MG TAB 1 tablet by mouth bid METRONI DAZOLE 87925070289 No Longer Active Checo Conklin MD Active FOCALIN XR 10 MG ORAL [id number] 1 po q a.m. DEX METHYLPHENIDATE HCL 17855477988 Active Checo Conklin MD Active MAGNESIUM CITRATE 1.745 GM/30ML ORAL SOLN 150ml po BID PRN C onstipation MAGNESIUM CITRATE 36310194158 No Longer Active Checo Conklin MD Active BACTROBAN 2 % CREAM Apply to affected area BID for up to 10 days MUPIROCIN CALCIUM 88528129733 No Longer Active Checo Conklin MD Active HYDROCODONE-ACETAMINOPHEN 5-325 MG TABS 1 tab by mouth every 6 hours as needed HYDROCODONE-ACETAMINOPHEN 54342545298 No Longer Activ e Checo Conklin MD Active IBUPROFEN 800 MG TABS 1 tab every 8 hours with food 20 31/03/21 IBUPROFEN 89545110963 No Longer Active Checo Conklin MD Activ e DIFLUCAN 150 MG TAB 1 tablet by mouth if needed, hold until symptoms start FLUCONAZOLE 50059619200 No Longer Active Checo Ortiz MD Active BACTRIM DS 800-160 MG TAB 1 tab by mouth twice daily 2 TRIMETHOPRIM-SULFAMETHOXAZOLE 58654054174 No Longer Active Corry leong LPN Active MIRALAX PACK 1 po qd PRN Constipation POLYETHYL JOEL GLYCOL 3350 51874359046 Active Checo Conklin MD Active HYDROCODONE-ACETAMINOPHEN 5-325 MG TABS 0.5 to 1 tab b y mouth every 6 hours as needed HYDROCODONE-ACETAMINOPHEN 97718482233 No Longer Active Checo Conklin MD Active ONDANSETRON [address] one tablet on tongue and allow to dissolve every 6 hours as needed for vomitting ONDANSETRO N 43804768037 No Longer Active Checo Conklin MD Active COMPRO 25 MG RECTAL SUPP insert or apply one supposit ory rectally as directed every 12 hours as needed for nausea PROCHLORPERA ZINE 24024988099 No Longer Active Checo Conklin MD Active SUMATRIPTAN SUCCINATE 100 MG ORAL TABS Take one PRN for migrane SUMATRIPTAN SUCCINATE 03914454687 No Longer Active Checo Conklin MD Active TRAVEL SICKNESS 25 MG ORAL CHEW chew and swallow one t ablet every 6 hours as needed MECLIZINE HCL 76103090013 No Longer Active Joe Conklin MD Active BUPROPION HCL ER (SR) 100 MG ORAL [id number] take one t ablet by mouth one time daily for one week then take 1 two times daily BUPROPION HCL 83245413684 No Longer Active Checo Conklin MD Activ e TERBINAFINE HCL 250 MG ORAL TABS take one table PO one time abran y TERBINAFINE HCL 97387799994 No Longer Active Checo Conklin MD Active METOCLOPRAMIDE HCL 10 MG ORAL TABS take one PO tid PRN nausea 20 29/12/14 METOCLOPRAMIDE HCL 58672690230 No Longer Active Checo Conklin MD Active DICLOFENAC SODIUM 75 MG TBEC 1 tablet by mouth twice daily P RN Knee pain DICLOFENAC SODIUM 98169746067 No Longer Active Checo Conklin MD Active LAMISIL 250 MG TAB 1 po qd TERBINAFINE HCL 548 74367122 No Longer Active Checo Conklin MD Active REGLAN 10 MG TAB 1 po TID PRN Nausea METOCLOPRA MIDE HCL 35214322841 No Longer Active Checo Conklin MD Active CELEXA 20 MG TABS 1 tablet by mouth daily CITALOPRAM HYDROBROMIDE 73181541725 No Longer Active Checo Conklin MD Activ e AZITHROMYCIN 250 MG TABS 2 po qd x 1 day, then 1 po qd x 4 days AZITHROMYCIN 14109721358 No Longer Active Checo Conklin MD Active HYDROCODONE-ACETAMINOPHEN 5-325 MG TABS 1 po q 6hr PRN Pain 2013 HYDROCODONE-ACETAMINOPHEN 92199811755 No Longer Active Lenora Conklin MD Active PHENAZOPYRIDINE HCL 200 MG TABS take 1 tab po TID for bladder pa in PHENAZOPYRIDINE HCL 71647051407 No Longer Active Checo Joshua Active CIPRO 500 MG TAB 1 tablet by mouth twice daily CIPROFLOXACIN HCL 71245696318 No Longer Active Dangelo Rangel MD Active HYDROCODONE-ACETAMINOPHEN 5-325 MG TABS 1/2 to 1 po q 4 hour s prn cough HYDROCODONE-ACETAMINOPHEN 51870290943 No Longer Activ e Dangelo Rangel MD Active BACTRIM DS 800-160 MG TABS 1 po BID x 7 days 0 SULFAMETHOXAZOLE-TRIMETHOPRIM 43169248771 No Longer Active Checo Conklin MD Active PREDNISONE 20 MG TAB 2 tabs daily for 3 days, 1 t ab daily for 3 days, 1/2 tab daily for 2 days PREDNISONE 98696972897 No Longer Active Checo Conklin MD Active TRIAMCINOLONE ACETONIDE 0.1 % OINT Apply to affected a reas TID for up to 2 weeks TRIAMCINOLONE ACETONIDE 04098088921 No Longer A ctive Checo Conklin MD Active CEFDINIR 300 MG CAPS by mouth twice a day CEFDI JAZZY 10028756005 No Longer Active Dangelo Rangel MD Active BUPROPION HCL (SMOKING DETER) 150 MG [id number] 1 a day for 1 week then 1 twice a day BUPROPION HCL (SMOKING DETER) 87989725831 No Lo nger Active Checo Conklin MD Active SIMVASTATIN 20 MG TABS 1 po qd SIMVASTATIN 2165168471 5 Active Checo Conklin MD Active CHANTIX STARTING MONTH KARTHIK 0.5 MG X 11 & 1 MG X 42 TAB S 0.5mg daily for 3 days, then 0.5mg BID for 4 days, then 1mg BID VARENICLINE TARTRATE 64624657173 No Longer Active Checo Conklin MD Activ e XANAX 0.5 MG TABS 1 po BID PRN anxiety ALPRAZOLAM 18064240903 Active Checo Conklin MD Active CONCERTA 18 MG CR-TABS 1 po q a.m. METHYLPHENID ATE HCL 12463916789 No Longer Active Checo Conklin MD Active AMBIEN 5 MG TAB 1 po qHS PRN Insomnia ZOLPIDEM TARTRATE 11691382767 Active Checo Conklin MD Active TRAZODONE HCL 100 MG TAB 0.5 to 1 po qHS PRN Insomnia TRAZODONE HCL 49147060946 No Longer Active Checo Conklin MD Acti ve FIORICET 325-50-40 MG TAB 1 tablet by mouth four times daily as needed [id number] 74164221487 No Longer Active Checo Conklin MD Active PHENERGAN CREAM* 25mg applied to wrist q6hr PRN Nausea PHENERGAN CREAM* No Longer Active Checo Conklin MD A ctive FLONASE 50 MCG/ACT SUSP 1 spray each nostril am and hs FLUTICASONE PROPIONATE 56712775266 No Longer Active Checo Conklin MD Activ e ANTIPYRINE-BENZOCAINE 5.4-1.4 % SOLN 1-2 drops in affected ear BENZOCAINE-ANTIPYRINE 65563142872 No Longer Active Checo Conklin MD Active CEFDINIR 300 MG CAPS 1 po bid CEFDINIR 49622140 120 No Longer Active Checo Conklin MD Active PREDNISONE 20 MG TAB 2 tabs daily for 3 days, 1 t ab daily for 3 days, 1/2 tab daily for 2 days PREDNISONE 27374738027 No Longer Active Aracelis Conklin MD Active AZITHROMYCIN 250 MG TABS 2 po qd x 1 day, then 1 po qd x 4 days AZITHROMYCIN 47250323141 No Longer Active Checo Conklin MD Active PREDNISONE 20 MG TAB 2 tabs daily for 3 days, 1 t ab daily for 3 days, 1/2 tab daily for 2 days PREDNISONE 69784019921 No Longer Active Checo Conklin MD Active ZITHROMAX Z-KARTHIK 250 MG TABS 2 today, then 1 daily for 4 days 201 09/18/28 AZITHROMYCIN 14624386601 No Longer Active Paul Hamlin MD Active FOCALIN XR 10 MG [id number] 1 po q a.m. D EXMETHYLPHENIDATE HCL 14988082708 No Longer Active Paul Hamlin MD Activ e PERCOCET 10-325 MG TABS 1 tablet every 6 hours as needed for pain OXYCODONE-ACETAMINOPHEN 48007233284 No Longer Active Paul Hamlin MD Active LORTAB 5 5-500 MG TABS 1/2 to 1 tablet by mouth flaquito ry 4 hours as needed for pain HYDROCODONE-ACETAMINOPHEN 10603227052 No Longer Active Checo Conklin MD Active FOCALIN XR 15 MG [id number] 1 po q a.m. D EXMETHYLPHENIDATE HCL 21218275922 No Longer Active Checo Conklin MD Activ e ZOFRAN ODT 4 MG TBDP 1 po q6hr PRN Nausea ONDAN SETRON 82000444800 No Longer Active Checo Conklin MD Active PERCOCET 5-325 MG TABS 1 tablet by mouth every 6 hours as needed OXYCODONE-ACETAMINOPHEN 70523265043 No Longer Active Checo Conklin MD Active PYRIDIUM 200 MG TABS take 1 tab po TID prn urinary pain. 0 PHENAZOPYRIDINE HCL 46270267384 No Longer Active Checo Conklin MD Active FLUCONAZOLE 150 MG TABS take 1 tab po qday once 0 04/06 FLUCONAZOLE 32704017724 No Longer Active Dangelo Rangel MD Acti ve CIPRO 500 MG TAB 1 tablet by mouth twice daily CIPROFLOXACIN HCL 20330033198 No Longer Active Dangelo Rangel MD Active PYRIDIUM 200 MG TABS take 1 tab po TID prn urinary pain. 0 PYRIDIUM 200 MG TABS 1570465 PHENAZOPYRIDINE HCL Inactive PERCOCET 5-325 MG TABS 1 tablet by mouth every 6 hours as needed PERCOCET 5-325 MG TABS 3718093 OXYCODONE-ACETAMINOPHEN I nactive ZOFRAN ODT 4 MG TBDP 1 po q6hr PRN Nausea ZOFRAN ODT 4 MG TBDP 774127 ONDANSETRON Inactive FOCALIN XR 15 MG [id number] 1 po q a.m. F OCALIN XR 15 MG [id number] DEXMETHYLPHENIDATE HCL Inactive LORTAB 5 5-500 MG TABS 1/2 to 1 tablet by mouth flaquito ry 4 hours as needed for pain LORTAB 5 5-500 MG TABS HYDROCODONE-A CETAMINOPHEN Inactive PERCOCET 10-325 MG TABS 1 tablet every 6 hours as needed for pain PERCOCET 10-325 MG TABS 5431040 OXYCODONE-ACETAMINOPHEN Inactive FOCALIN XR 10 MG [id number] 1 po q a.m. F OCALIN XR 10 MG [id number] DEXMETHYLPHENIDATE HCL Inactive CEFDINIR 300 MG CAPS 1 po bid CEFDINIR 300 MG CAPS 20 0346 CEFDINIR Inactive ANTIPYRINE-BENZOCAINE 5.4-1.4 % SOLN 1-2 drops in affected ear ANTIPYRINE-BENZOCAINE 5.4-1.4 % SOLN 272846 BENZOCAINE-ANTIPYRINE I nactive FLONASE 50 MCG/ACT SUSP [...] PRN Insomnia TRAZODONE HCL 100 MG TAB 509371 TRAZODONE HCL Inactive CONCERTA 18 MG CR-TABS [...] s prn cough HYDROCODONE-ACETAMINOPHEN 5-325 MG TABS 127180 HYDROCODONE-ACETAMINOPHEN Inactive PHENAZOPYRIDINE HCL 200 MG TABS take 1 tab po TID for bladder pa in PHENAZOPYRIDINE HCL 200 MG TABS 3197749 PHENAZOPYRIDINE HCL Inactive HYDROCODONE-ACETAMINOPHEN 5-325 MG TABS 1 po q 6hr PRN Pain 2013 HYDROCODONE-ACETAMINOPHEN 5-325 MG TABS 979048 HYDROCODONE-ACETAMINOPHEN Inactive CELEXA 20 MG TABS 1 tablet by mouth daily CELEXA 20 MG TABS 849080 CITALOPRAM HYDROBROMIDE Inactive REGLAN 10 MG TAB 1 po TID PRN Nausea REGLAN 10 MG TAB 299456 METOCLOPRAMIDE HCL Inactive LAMISIL 250 MG TAB 1 po qd LAMISIL 250 MG TAB 438343 TERBINAFINE HCL Inactive DICLOFENAC SODIUM 75 MG TBEC 1 tablet by mouth twice daily P RN Knee pain DICLOFENAC SODIUM 75 MG TBEC 923950 DICLOFENAC S ODIUM Inactive METOCLOPRAMIDE HCL 10 MG ORAL TABS take one PO tid PRN nausea 20 29/12/14 METOCLOPRAMIDE HCL 10 MG ORAL TABS 673180 METOCLOPRAMID E HCL Inactive TERBINAFINE HCL 250 MG ORAL TABS take one table PO one time abran y TERBINAFINE HCL 250 MG ORAL TABS 955097 TERBINAFINE HCL Inactive BUPROPION HCL ER (SR) 100 MG ORAL [id number] take one t ablet by mouth one time daily for one week then take 1 two times daily BUPROPION HCL ER (SR) 100 MG ORAL [id number] BUPROPION HCL Inacti ve TRAVEL SICKNESS 25 MG ORAL CHEW chew and swallow one t ablet every 6 hours as needed TRAVEL SICKNESS 25 MG ORAL CHEW 033730 MECLIZINE HCL Inactive SUMATRIPTAN SUCCINATE 100 MG ORAL TABS Take one PRN for migrane SUMATRIPTAN SUCCINATE 100 MG ORAL TABS 658952 SUMATRIPT AN SUCCINATE Inactive COMPRO 25 MG RECTAL SUPP insert or apply one supposit ory rectally as directed every 12 hours as needed for nausea COMP RO 25 MG RECTAL SUPP 759817 PROCHLORPERAZINE Inactive ONDANSETRON [address] one tablet on tongue and allow to dissolve every 6 hours as needed for vomitting ON DANSETRON 8 MG ORAL TBDP 109445 ONDANSETRON Inactive HYDROCODONE-ACETAMINOPHEN 5-325 MG TABS 0.5 to 1 tab b y mouth every 6 hours as needed HYDROCODONE-ACETAMINOPHEN 5-325 MG TABS 8 42777 HYDROCODONE-ACETAMINOPHEN Inactive BACTRIM DS 800-160 MG TAB 1 tab by mouth twice daily 2 BACTRIM DS 800-160 MG TAB 833580 TRIMETHOPRIM-SULFAMETHOXAZOLE Inac tive DIFLUCAN 150 MG TAB 1 tablet by mouth if needed, hold until symptoms start DIFLUCAN 150 MG TAB 649758 FLUCONAZOLE Inactive IBUPROFEN 800 MG TABS 1 tab every 8 hours with food 31/03/21 IBUPROFEN 800 MG TABS 909485 IBUPROFEN Inactive HYDROCODONE-ACETAMINOPHEN 5-325 MG TABS 1 tab by mouth every 6 hours as needed HYDROCODONE-ACETAMINOPHEN 5-325 MG TABS 293927 HYDROCODONE-ACETAMINOPHEN Inactive BACTROBAN 2 % CREAM Apply to affected area BID for up to 10 days BACTROBAN 2 % CREAM 621730 MUPIROCIN CALCIUM Inactive MAGNESIUM CITRATE 1.745 GM/30ML ORAL SOLN 150ml po BID PRN C onstipation MAGNESIUM CITRATE 1.745 GM/30ML ORAL SOLN 202280 0 MAGNESIUM CITRATE Inactive DIFLUCAN 150 MG TAB 1 tablet by mouth qod DIFLUCAN 150 MG TAB 631434 FLUCONAZOLE Inactive BACTRIM DS 800-160 MG TAB 1 tab by mouth twice daily 2 BACTRIM DS 800-160 MG TAB 709966 TRIMETHOPRIM-SULFAMETHOXAZOLE Inac tive CIPRO 500 MG TAB 1 tablet by mouth twice daily CIPRO 500 MG TAB 663417 CIPROFLOXACIN HCL Inactive FLUCONAZOLE 150 MG TABS take 1 tab po qday once 04/06 FLUCONAZOLE 150 MG TABS 445016 FLUCONAZOLE Inactive ZITHROMAX Z-KARTHIK 250 MG TABS 2 today, then 1 daily for 4 days 201 09/18/28 ZITHROMAX Z-KARTHIK 250 MG TABS 1663170 AZITHROMYCIN Inac tive PREDNISONE 20 MG TAB 2 tabs daily for 3 days, 1 t ab daily for 3 days, 1/2 tab daily for 2 days PREDNISONE 20 MG TAB 113989 PREDNISON E Inactive AZITHROMYCIN 250 MG TABS 2 po qd x 1 day, then 1 po qd x 4 days AZITHROMYCIN 250 MG TABS 1904957 AZITHROMYCIN Inactiv e PREDNISONE 20 MG TAB 2 tabs daily for 3 days, 1 t ab daily for 3 days, 1/2 tab daily for 2 days PREDNISONE 20 MG TAB 433759 PREDNISON E Inactive CEFDINIR 300 MG CAPS by mouth twice a day CEFDINIR 300 MG CAPS 799601 CEFDINIR Inactive TRIAMCINOLONE ACETONIDE 0.1 % OINT Apply to affected a reas TID for up to 2 weeks TRIAMCINOLONE ACETONIDE 0.1 % OINT 110803 6 TRIAMCINOLONE ACETONIDE Inactive PREDNISONE 20 MG TAB 2 tabs daily for 3 days, 1 t ab daily for 3 days, 1/2 tab daily for 2 days PREDNISONE 20 MG TAB 283227 PREDNISON E Inactive BACTRIM DS 800-160 MG TABS 1 po BID x 7 days 0 BACTRIM DS 800-160 MG TABS 569515 SULFAMETHOXAZOLE-TRIMETHOPRIM Inactive CIPRO 500 MG TAB 1 tablet by mouth twice daily CIPRO 500 MG TAB 829763 CIPROFLOXACIN HCL Inactive AZITHROMYCIN 250 MG TABS 2 po qd x 1 day, then 1 po qd x 4 days AZITHROMYCIN 250 MG TABS 5466257 AZITHROMYCIN Inactiv e FLAGYL 500 MG TAB 1 tablet by mouth bid FLAGYL 500 MG TAB 298168 METRONIDAZOLE Inactive AZITHROMYCIN 250 MG TABS 2 po qd x 1 day, then 1 po qd x 4 days AZITHROMYCIN 250 MG TABS 6016016 AZITHROMYCIN Inactiv e Immunizations Vaccine Administration Date [...] ... - Chemistry sodium, serum 141 mmol/L 173-538 2756/01/26 carbon dioxide, venous blood 30.0 mmol/L 21.0-32 .0 potassium, serum 4.0 mmol/L 3.5-5.2 chloride, serum 105 mmol/L 98-107 blood glucose 85 mg/dL 65-110 urea nitrogen, blood 9 mg/dL 7-18 creatinine, serum 0.66 mg/dL 0.55-1.30 alanine aminotransferase (SGPT), serum 31 U/L 12-78 aspartate aminotransferase (SGOT), serum 21 U/L 15-37 calcium, serum 8.2 mg/dL 8.5-10.1 bilirubin, serum, total 1.10 mg/dL 0.00-1.00 cholesterol, serum 178 mg/dL 687-871 1053/01/26 triglyceride, serum, fasting 149 mg/dL 30-200 HDL [...] ... - Chemistry sodium, serum 137 mmol/L 410-853 5740/05/27 carbon dioxide, venous blood 29.1 mmol/L 21.0-32 [...] 5.0-8.5 Encounters Code Encounter Date Provider Facility CPT-54862 Level 2 Est. Patient 19:53:27 CDT Tanner hill MD [facility] CPT-48127 Level 3 Est. Patient 09:15:34 CDT Efren almendarez [facility] CPT-10130 Level 3 Est. Patient 11:28:51 ALFALFA DEHYDRATOR OPERATOR Efren almendarez [facility] CPT-61244 Level 4 Est. Patient 13:55:46 ALFALFA DEHYDRATOR OPERATOR Checo Conklin MD [facility] CPT-11581 Level 4 Est. Patient 17:10:53 CDT Checo Conklin MD [facility] CPT-58938 Level 3 Est. Patient 15:56:22 CDT Checo oCnklin MD [facility] CPT-10957 Level 3 Est. Patient 15:29:07 CDT Checo Conklin MD [facility] CPT-34725 Level 3 Est. Patient 14:38:41 CDT Checo Conklin MD [facility] CPT-91299 Level 3 Est. Patient 15:22:03 ALFALFA DEHYDRATOR OPERATOR Thomas reynolds DO [facility] CPT-92601 Level 3 Est. Patient 13:34:17 ALFALFA DEHYDRATOR OPERATOR Checo Conklin MD [facility] CPT-88492 Level 3 Est. Patient 12:29:32 CDT Dangelo arroyo MD [facility] CPT-89289 Level 3 Est. Patient 16:53:02 CDT Checo Conklin MD [facility] CPT-10307 Level 3 Est. Patient 16:37:13 CDT Checo Conklin MD [facility] CPT-70899 Level 3 Est. Patient 16:16:59 CDT Paul Hamlin MD [facility] CPT-15280 Level 3 Est. Patient 14:20:13 CDT Dangelo arroyo MD [facility] CPT-02381 Level 4 Est. Patient 11:29:33 CDT Checo Conklin MD [facility] CPT-85809 Level 3 Est. Patient 17:08:31 CDT Checo Conklin MD [facility] CPT-70190 Level 3 Est. Patient 16:50:42 ALFALFA DEHYDRATOR OPERATOR Checo Conklin MD [facility] CPT-92533 Level 4 Est. Patient 09:26:08 ALFALFA DEHYDRATOR OPERATOR Checo Conklin MD [facility] CPT-89086 Level 3 Est. Patient 11:37:10 CDT Checo Conklin MD [facility] CPT-82037 Level 4 Est. Patient 14:07:38 CDT Checo Conklin MD [facility] CPT-29281 Level 3 Est. Patient 09:54:41 CDT Checo Conklin MD [facility] CPT-05861 Level 3 Est. Patient 11:10:54 CDT Paul Hamlin MD [facility] CPT-42984 Level 3 Est. Patient 14:16:56 ALFALFA DEHYDRATOR OPERATOR Checo Conklin MD [facility] CPT-02843 Level 3 Est. Patient 11:04:11 ALFALFA DEHYDRATOR OPERATOR Checo Conklin MD [facility] CPT-72684 Level 3 Est. Patient 17:09:26 CDT Dangelo arroyo MD [facility] CPT-45496 Level 3 Est. Patient 16:54:37 CDT Checo Conklin MD [facility] Procedures Code Procedure Name Date Entry Date Standard Desc ription CPT-LR Lesion Removal 19:53:27 CDT CPT-OV Office Visit 11:31:28 CDT CPT-33626 Tubersol 09:39:29 CDT CPT-J2550 Phenergan 25 mg (Promethazine) 13:59:02 ALFALFA DEHYDRATOR OPERATOR CPT-J1885 Toradol 60 mg (Ketorolac) 13:59:02 ALFALFA DEHYDRATOR OPERATOR 2012
--- OUTSIDE RECORDS SUMMARY | 2019-09-29 02:28 | XMS REPORT | Clinical Summary ---
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 Tanner Carrillo MD Neoplasm of uncertain behavior of skin BREAST CANCER ICD-V16.3 Inactive Checo Joshua FH DIABETES ICD-V18.0 Inactive Checo Conklni MD 201 08/27/26 CONCUSSION ICD-850.9 Inactive Checo [...] tab by mouth twice daily 2 TRIMETHOPRIM-SULFAMETHOXAZOLE 30218100465 No Longer Active Tanner Carrillo MD Active DIFLUCAN 150 MG TAB 1 tablet by mouth qod FLUCO NAZOLE 25673948789 No Longer Active Efren Medel APRN Active CLARITIN 10 MG TAB 1 tablet by mouth daily as needed for allergies LORATADINE 32252634252 Active 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 DEX METHYLPHENIDATE HCL 95522712545 Active Checo Conklin MD Active MAGNESIUM CITRATE 1.745 GM/30ML ORAL SOLN 150ml po BID PRN C onstipation MAGNESIUM CITRATE 78049945712 No Longer Active Checo Conklin MD Active BACTROBAN 2 % CREAM Apply to affected area BID for up to 10 days MUPIROCIN CALCIUM 43969780498 No Longer Active Checo Conklin MD Active HYDROCODONE-ACETAMINOPHEN 5-325 MG TABS 1 tab by mouth every 6 hours as needed HYDROCODONE-ACETAMINOPHEN 38923020748 No Longer Activ e Checo Conklin MD Active IBUPROFEN 800 MG TABS 1 tab every 8 hours with food 20 31/03/21 IBUPROFEN 55119457920 No Longer Active Checo Conklin MD Activ e DIFLUCAN 150 MG TAB 1 tablet by mouth if needed, hold until symptoms start FLUCONAZOLE 01053292583 No Longer Active Checo Ortiz MD Active BACTRIM DS 800-160 MG TAB 1 tab by mouth twice daily 2 TRIMETHOPRIM-SULFAMETHOXAZOLE 91584868220 No Longer Active Corry leong LPN Active MIRALAX PACK 1 po qd PRN Constipation POLYETHYL JOEL GLYCOL 3350 43426500529 Active Checo Conklin MD Active HYDROCODONE-ACETAMINOPHEN 5-325 MG TABS 0.5 to 1 tab b y mouth every 6 hours as needed HYDROCODONE-ACETAMINOPHEN 94903581166 No Longer Active Checo Conklin MD Active ONDANSETRON [address] one tablet on tongue and allow to dissolve every 6 hours as needed for vomitting ONDANSETRO N 24426402555 No Longer Active Checo Conklin MD Active COMPRO 25 MG RECTAL SUPP insert or apply one supposit ory rectally as directed every 12 hours as needed for nausea PROCHLORPERA ZINE 85177664909 No Longer Active Checo Conklin MD Active SUMATRIPTAN SUCCINATE 100 MG ORAL TABS Take one PRN for migrane SUMATRIPTAN SUCCINATE 56571396655 No Longer Active Checo Conklin MD Active TRAVEL SICKNESS 25 MG ORAL CHEW chew and swallow one t ablet every 6 hours as needed MECLIZINE HCL 49148453205 No Longer Active oJe Conklin MD Active BUPROPION HCL ER (SR) 100 MG ORAL [id number] take one t ablet by mouth one time daily for one week then take 1 two times daily BUPROPION HCL 61573081471 No Longer Active Checo Conklin MD Activ e TERBINAFINE HCL 250 MG ORAL TABS take one table PO one time abran y TERBINAFINE HCL 21541194793 No Longer Active Checo Conklin MD Active METOCLOPRAMIDE HCL 10 MG ORAL TABS take one PO tid PRN nausea 20 29/12/14 METOCLOPRAMIDE HCL 13770403894 No Longer Active Checo Conklin MD Active DICLOFENAC SODIUM 75 MG TBEC 1 tablet by mouth twice daily P RN Knee pain DICLOFENAC SODIUM 76912859689 No Longer Active Checo Conklin MD Active LAMISIL 250 MG TAB 1 po qd TERBINAFINE HCL 548 74341419 No Longer Active Checo Conklin MD Active REGLAN 10 MG TAB 1 po TID PRN Nausea METOCLOPRA MIDE HCL 84796267799 No Longer Active Checo Conklin MD Active CELEXA 20 MG TABS 1 tablet by mouth daily CITALOPRAM HYDROBROMIDE 49611416049 No Longer Active Checo Conklin MD Activ e AZITHROMYCIN 250 MG TABS 2 po qd x 1 day, then 1 po qd x 4 days AZITHROMYCIN 63775388006 No Longer Active Checo Conklin MD Active HYDROCODONE-ACETAMINOPHEN 5-325 MG TABS 1 po q 6hr PRN Pain 2013 HYDROCODONE-ACETAMINOPHEN 38012404691 No Longer Active Lenora Conklin MD Active PHENAZOPYRIDINE HCL 200 MG TABS take 1 tab po TID for bladder pa in PHENAZOPYRIDINE HCL 14722131510 No Longer Active Checo Joshua Active CIPRO 500 MG TAB 1 tablet by mouth twice daily CIPROFLOXACIN HCL 45127065017 No Longer Active Dangelo Rangel MD Active HYDROCODONE-ACETAMINOPHEN 5-325 MG TABS 1/2 to 1 po q 4 hour s prn cough HYDROCODONE-ACETAMINOPHEN 95667723783 No Longer Activ e Dangelo Rangel MD Active BACTRIM DS 800-160 MG TABS 1 po BID x 7 days 0 SULFAMETHOXAZOLE-TRIMETHOPRIM 10617352629 No Longer Active Checo Conklin MD Active PREDNISONE 20 MG TAB 2 tabs daily for 3 days, 1 t ab daily for 3 days, 1/2 tab daily for 2 days PREDNISONE 22752325516 No Longer Active Checo Conklin MD Active TRIAMCINOLONE ACETONIDE 0.1 % OINT Apply to affected a reas TID for up to 2 weeks TRIAMCINOLONE ACETONIDE 45363537083 No Longer A ctive Checo Conlkin MD Active CEFDINIR 300 MG CAPS by mouth twice a day CEFDI JAZZY 53468115172 No Longer Active Dangelo Rangel MD Active BUPROPION HCL (SMOKING DETER) 150 MG [id number] 1 a day for 1 week then 1 twice a day BUPROPION HCL (SMOKING DETER) 01453857258 No Lo nger Active Checo Conklin MD Active SIMVASTATIN 20 MG TABS 1 po qd SIMVASTATIN 6982257908 5 Active Checo Conklin MD Active CHANTIX STARTING MONTH KARTHIK 0.5 MG X 11 & 1 MG X 42 TAB S 0.5mg daily for 3 days, then 0.5mg BID for 4 days, then 1mg BID VARENICLINE TARTRATE 32086079436 No Longer Active Checo Conklin MD Activ e XANAX 0.5 MG TABS 1 po BID PRN anxiety ALPRAZOLAM 53285527849 Active Checo Conklin MD Active CONCERTA 18 MG CR-TABS 1 po q a.m. METHYLPHENID ATE HCL 71022928760 No Longer Active Checo Conklin MD Active AMBIEN 5 MG TAB 1 po qHS PRN Insomnia ZOLPIDEM TARTRATE 39772580579 Active Checo Conklin MD Active TRAZODONE HCL 100 MG TAB 0.5 to 1 po qHS PRN Insomnia TRAZODONE HCL 60077759588 No Longer Active Checo Conklin MD Acti ve FIORICET 325-50-40 MG TAB 1 tablet by mouth four times daily as needed [id number] 53714357018 No Longer Active Checo Conklin MD Active PHENERGAN CREAM* 25mg applied to wrist q6hr PRN Nausea PHENERGAN CREAM* No Longer Active Checo Conklin MD A ctive FLONASE 50 MCG/ACT SUSP 1 spray each nostril am and hs FLUTICASONE PROPIONATE 84996769682 No Longer Active Checo Conklin MD Activ e ANTIPYRINE-BENZOCAINE 5.4-1.4 % SOLN 1-2 drops in affected ear BENZOCAINE-ANTIPYRINE 31077103457 No Longer Active Checo Conklin MD Active CEFDINIR 300 MG CAPS 1 po bid CEFDINIR 58001706 120 No Longer Active Checo Conklin MD Active PREDNISONE 20 MG TAB 2 tabs daily for 3 days, 1 t ab daily for 3 days, 1/2 tab daily for 2 days PREDNISONE 20209956981 No Longer Active Aracelis Conklin MD Active AZITHROMYCIN 250 MG TABS 2 po qd x 1 day, then 1 po qd x 4 days AZITHROMYCIN 45106247900 No Longer Active Checo Conklin MD Active PREDNISONE 20 MG TAB 2 tabs daily for 3 days, 1 t ab daily for 3 days, 1/2 tab daily for 2 days PREDNISONE 73507587409 No Longer Active Checo Conklin MD Active ZITHROMAX Z-KARTHIK 250 MG TABS 2 today, then 1 daily for 4 days 201 09/18/28 AZITHROMYCIN 47939446812 No Longer Active Paul Hamlin MD Active FOCALIN XR 10 MG [id number] 1 po q a.m. D EXMETHYLPHENIDATE HCL 33516864600 No Longer Active Paul Hamlin MD Activ e PERCOCET 10-325 MG TABS 1 tablet every 6 hours as needed for pain OXYCODONE-ACETAMINOPHEN 64640385743 No Longer Active Paul Hamlin MD Active LORTAB 5 5-500 MG TABS 1/2 to 1 tablet by mouth flaquito ry 4 hours as needed for pain HYDROCODONE-ACETAMINOPHEN 59793261537 No Longer Active Checo Conklin MD Active FOCALIN XR 15 MG [id number] 1 po q a.m. D EXMETHYLPHENIDATE HCL 62246891232 No Longer Active Checo Conklin MD Activ e ZOFRAN ODT 4 MG TBDP 1 po q6hr PRN Nausea ONDAN SETRON 76618476993 No Longer Active Checo Conklin MD Active PERCOCET 5-325 MG TABS 1 tablet by mouth every 6 hours as needed OXYCODONE-ACETAMINOPHEN 10689839239 No Longer Active Checo Conklin MD Active PYRIDIUM 200 MG TABS take 1 tab po TID prn urinary pain. 0 PHENAZOPYRIDINE HCL 48966298199 No Longer Active Checo Conklin MD Active FLUCONAZOLE 150 MG TABS take 1 tab po qday once 0 04/06 FLUCONAZOLE 75468957009 No Longer Active Dangelo Rangel MD Acti ve CIPRO 500 MG TAB 1 tablet by mouth twice daily CIPROFLOXACIN HCL 07412353462 No Longer Active Dangelo Rangel MD Active PYRIDIUM 200 MG TABS take 1 tab po TID prn urinary pain. 0 PYRIDIUM 200 MG TABS 8514417 PHENAZOPYRIDINE HCL Inactive PERCOCET 5-325 MG TABS 1 tablet by mouth every 6 hours as needed PERCOCET 5-325 MG TABS 7472821 OXYCODONE-ACETAMINOPHEN I nactive ZOFRAN ODT 4 MG TBDP 1 po q6hr PRN Nausea ZOFRAN ODT 4 MG TBDP 492124 ONDANSETRON Inactive FOCALIN XR 15 MG [id number] 1 po q a.m. F OCALIN XR 15 MG [id number] DEXMETHYLPHENIDATE HCL Inactive LORTAB 5 5-500 MG TABS 1/2 to 1 tablet by mouth flaquito ry 4 hours as needed for pain LORTAB 5 5-500 MG TABS HYDROCODONE-A CETAMINOPHEN Inactive PERCOCET 10-325 MG TABS 1 tablet every 6 hours as needed for pain PERCOCET 10-325 MG TABS 8501514 OXYCODONE-ACETAMINOPHEN Inactive FOCALIN XR 10 MG [id number] 1 po q a.m. F OCALIN XR 10 MG [id number] DEXMETHYLPHENIDATE HCL Inactive CEFDINIR 300 MG CAPS 1 po bid CEFDINIR 300 MG CAPS 20 0346 CEFDINIR Inactive ANTIPYRINE-BENZOCAINE 5.4-1.4 % SOLN 1-2 drops in affected ear ANTIPYRINE-BENZOCAINE 5.4-1.4 % SOLN 171563 BENZOCAINE-ANTIPYRINE I nactive FLONASE 50 MCG/ACT SUSP 1 spray each nostril am and hs FLONASE 50 MCG/ACT SUSP 303093 FLUTICASONE PROPIONATE Inactive PHENERGAN CREAM* 25mg applied to wrist q6hr PRN Nausea PHENERGAN CREAM* Inactive FIORICET 325-50-40 MG TAB 1 tablet by mouth four times daily as needed FIORICET 325-50-40 MG TAB ACETAMINOPHEN-C AFF-BUTALBITAL Inactive TRAZODONE HCL 100 MG TAB 0.5 to 1 po qHS PRN Insomnia TRAZODONE HCL 100 MG TAB 013025 TRAZODONE HCL Inactive CONCERTA 18 MG CR-TABS [...] s prn cough HYDROCODONE-ACETAMINOPHEN 5-325 MG TABS 923209 HYDROCODONE-ACETAMINOPHEN Inactive PHENAZOPYRIDINE HCL 200 MG TABS take 1 tab po TID for bladder pa in PHENAZOPYRIDINE HCL 200 MG TABS 8216939 PHENAZOPYRIDINE HCL Inactive HYDROCODONE-ACETAMINOPHEN 5-325 MG TABS 1 po q 6hr PRN Pain 2013 HYDROCODONE-ACETAMINOPHEN 5-325 MG TABS 391576 HYDROCODONE-ACETAMINOPHEN Inactive CELEXA 20 MG TABS 1 tablet by mouth daily CELEXA 20 MG TABS 612235 CITALOPRAM HYDROBROMIDE Inactive REGLAN 10 MG TAB 1 po TID PRN Nausea REGLAN 10 MG TAB 912306 METOCLOPRAMIDE HCL Inactive LAMISIL 250 MG TAB 1 po qd LAMISIL 250 MG TAB 312103 TERBINAFINE HCL Inactive DICLOFENAC SODIUM 75 MG TBEC 1 tablet by mouth twice daily P RN Knee pain DICLOFENAC SODIUM 75 MG TBEC 425850 DICLOFENAC S ODIUM Inactive METOCLOPRAMIDE HCL 10 MG ORAL TABS take one PO tid PRN nausea 20 29/12/14 METOCLOPRAMIDE HCL 10 MG ORAL TABS 886757 METOCLOPRAMID E HCL Inactive TERBINAFINE HCL 250 MG ORAL TABS take one table PO one time abran y TERBINAFINE HCL 250 MG ORAL TABS 795500 TERBINAFINE HCL Inactive BUPROPION HCL ER (SR) 100 MG ORAL [id number] take one t ablet by mouth one time daily for one week then take 1 two times daily BUPROPION HCL ER (SR) 100 MG ORAL [id number] BUPROPION HCL Inacti ve TRAVEL SICKNESS 25 MG ORAL CHEW chew and swallow one t ablet every 6 hours as needed TRAVEL SICKNESS 25 MG ORAL CHEW 478677 MECLIZINE HCL Inactive SUMATRIPTAN SUCCINATE 100 MG ORAL TABS Take one PRN for migrane SUMATRIPTAN SUCCINATE 100 MG ORAL TABS 795176 SUMATRIPT AN SUCCINATE Inactive COMPRO 25 MG RECTAL SUPP insert or apply one supposit ory rectally as directed every 12 hours as needed for nausea COMP RO 25 MG RECTAL SUPP 729419 PROCHLORPERAZINE Inactive ONDANSETRON [address] one tablet on tongue and allow to dissolve every 6 hours as needed for vomitting ON DANSETRON 8 MG ORAL TBDP 118626 ONDANSETRON Inactive HYDROCODONE-ACETAMINOPHEN 5-325 MG TABS 0.5 to 1 tab b y mouth every 6 hours as needed HYDROCODONE-ACETAMINOPHEN 5-325 MG TABS 8 89708 HYDROCODONE-ACETAMINOPHEN Inactive BACTRIM DS 800-160 MG TAB 1 tab by mouth twice daily 2 BACTRIM DS 800-160 MG TAB 270395 TRIMETHOPRIM-SULFAMETHOXAZOLE Inac tive DIFLUCAN 150 MG TAB 1 tablet by mouth if needed, hold until symptoms start DIFLUCAN 150 MG TAB 873746 FLUCONAZOLE Inactive IBUPROFEN 800 MG TABS 1 tab every 8 hours with food 31/03/21 IBUPROFEN 800 MG TABS 279745 IBUPROFEN Inactive HYDROCODONE-ACETAMINOPHEN 5-325 MG TABS 1 tab by mouth every 6 hours as needed HYDROCODONE-ACETAMINOPHEN 5-325 MG TABS 367718 HYDROCODONE-ACETAMINOPHEN Inactive BACTROBAN 2 % CREAM Apply to affected area BID for up to 10 days BACTROBAN 2 % CREAM 370234 MUPIROCIN CALCIUM Inactive MAGNESIUM CITRATE 1.745 GM/30ML ORAL SOLN 150ml po BID PRN C onstipation MAGNESIUM CITRATE 1.745 GM/30ML ORAL SOLN 586601 0 MAGNESIUM CITRATE Inactive DIFLUCAN 150 MG TAB 1 tablet by mouth qod DIFLUCAN 150 MG TAB 753825 FLUCONAZOLE Inactive BACTRIM DS 800-160 MG TAB 1 tab by mouth twice daily 2 BACTRIM DS 800-160 MG TAB 649776 TRIMETHOPRIM-SULFAMETHOXAZOLE Inac tive CIPRO 500 MG TAB 1 tablet by mouth twice daily CIPRO 500 MG TAB 106139 CIPROFLOXACIN HCL Inactive FLUCONAZOLE 150 MG TABS take 1 tab po qday once 04/06 FLUCONAZOLE 150 MG TABS 462182 FLUCONAZOLE Inactive ZITHROMAX Z-KARTHIK 250 MG TABS 2 today, then 1 daily for 4 days 201 09/18/28 ZITHROMAX Z-KARTHIK 250 MG TABS 5232831 AZITHROMYCIN Inac tive PREDNISONE 20 MG TAB 2 tabs daily for 3 days, 1 t ab daily for 3 days, 1/2 tab daily for 2 days PREDNISONE 20 MG TAB 025772 PREDNISON E Inactive AZITHROMYCIN 250 MG TABS 2 po qd x 1 day, then 1 po qd x 4 days AZITHROMYCIN 250 MG TABS 4145719 AZITHROMYCIN Inactiv e PREDNISONE 20 MG TAB 2 tabs daily for 3 days, 1 t ab daily for 3 days, 1/2 tab daily for 2 days PREDNISONE 20 MG TAB 841050 PREDNISON E Inactive CEFDINIR 300 MG CAPS by mouth twice a day CEFDINIR 300 MG CAPS 997150 CEFDINIR Inactive TRIAMCINOLONE ACETONIDE 0.1 % OINT Apply to affected a reas TID for up to 2 weeks TRIAMCINOLONE ACETONIDE 0.1 % OINT 379046 6 TRIAMCINOLONE ACETONIDE Inactive PREDNISONE 20 MG TAB 2 tabs daily for 3 days, 1 t ab daily for 3 days, 1/2 tab daily for 2 days PREDNISONE 20 MG TAB 464762 PREDNISON E Inactive BACTRIM DS 800-160 MG TABS 1 po BID x 7 days 0 BACTRIM DS 800-160 MG TABS 600455 SULFAMETHOXAZOLE-TRIMETHOPRIM Inactive CIPRO 500 MG TAB 1 tablet by mouth twice daily CIPRO 500 MG TAB 938178 CIPROFLOXACIN HCL Inactive AZITHROMYCIN 250 MG TABS 2 po qd x 1 day, then 1 po qd x 4 days AZITHROMYCIN 250 MG TABS 0491626 AZITHROMYCIN Inactiv e FLAGYL 500 MG TAB 1 tablet by mouth bid FLAGYL 500 MG TAB 341052 METRONIDAZOLE Inactive AZITHROMYCIN 250 MG TABS 2 po qd x 1 day, then 1 po qd x 4 days AZITHROMYCIN 250 MG TABS 1058300 AZITHROMYCIN Inactiv e Immunizations Vaccine Administration Date [...] ... - Chemistry sodium, serum 141 mmol/L 816-287 3271/01/26 carbon dioxide, venous blood 30.0 mmol/L 21.0-32 .0 potassium, serum 4.0 mmol/L 3.5-5.2 chloride, serum 105 mmol/L 98-107 blood glucose 85 mg/dL 65-110 urea nitrogen, blood 9 mg/dL 7-18 creatinine, serum 0.66 mg/dL 0.55-1.30 alanine aminotransferase (SGPT), serum 31 U/L 12-78 aspartate aminotransferase (SGOT), serum 21 U/L 15-37 calcium, serum 8.2 mg/dL 8.5-10.1 bilirubin, serum, total 1.10 mg/dL 0.00-1.00 cholesterol, serum 178 mg/dL 030-622 0643/01/26 triglyceride, serum, fasting 149 mg/dL 30-200 HDL [...] ... - Chemistry sodium, serum 137 mmol/L 661-397 7501/05/27 carbon dioxide, venous blood 29.1 mmol/L 21.0-32 [...] 5.0-8.5 Encounters Code Encounter Date Provider Facility CPT-95256 Level 2 Est. Patient 19:53:27 CDT Tanner hill MD [facility] CPT-34730 Level 3 Est. Patient 09:15:34 CDT Efren almendarez [facility] CPT-29177 Level 3 Est. Patient 11:28:51 ASSISTANT PLANT MANAGER Efren almendarez [facility] CPT-20188 Level 4 Est. Patient 13:55:46 ASSISTANT PLANT MANAGER Checo Conklin MD [facility] CPT-70834 Level 4 Est. Patient 17:10:53 CDT Checo Conklin MD [facility] CPT-40805 Level 3 Est. Patient 15:56:22 CDT Checo Conklin MD [facility] CPT-92854 Level 3 Est. Patient 15:29:07 CDT Checo Conklin MD [facility] CPT-91646 Level 3 Est. Patient 14:38:41 CDT Checo Conklin MD [facility] CPT-01161 Level 3 Est. Patient 15:22:03 ASSISTANT PLANT MANAGER Thomas reynolds DO [facility] CPT-84530 Level 3 Est. Patient 13:34:17 ASSISTANT PLANT MANAGER Checo Conklin MD [facility] CPT-11821 Level 3 Est. Patient 12:29:32 CDT Dangelo arroyo MD [facility] CPT-29595 Level 3 Est. Patient 16:53:02 CDT Checo Conklin MD [facility] CPT-29831 Level 3 Est. Patient 16:37:13 CDT Checo Conklin MD [facility] CPT-99678 Level 3 Est. Patient 16:16:59 CDT Paul Hamlin MD [facility] CPT-39454 Level 3 Est. Patient 14:20:13 CDT Dangelo arroyo MD [facility] CPT-38239 Level 4 Est. Patient 11:29:33 CDT Checo Conklin MD [facility] CPT-98861 Level 3 Est. Patient 17:08:31 CDT Checo Conklin MD [facility] CPT-63837 Level 3 Est. Patient 16:50:42 ASSISTANT PLANT MANAGER Checo Conklin MD [facility] CPT-96541 Level 4 Est. Patient 09:26:08 ASSISTANT PLANT MANAGER Checo Conklin MD [facility] CPT-10448 Level 3 Est. Patient 11:37:10 CDT Checo Conklin MD [facility] CPT-11881 Level 4 Est. Patient 14:07:38 CDT Checo Conklin MD [facility] CPT-57220 Level 3 Est. Patient 09:54:41 CDT Checo Conklin MD [facility] CPT-36717 Level 3 Est. Patient 11:10:54 CDT Paul Hamlin MD [facility] CPT-10397 Level 3 Est. Patient 14:16:56 ASSISTANT PLANT MANAGER Checo Conklin MD [facility] CPT-76453 Level 3 Est. Patient 11:04:11 ASSISTANT PLANT MANAGER Checo Conklin MD [facility] CPT-59212 Level 3 Est. Patient 17:09:26 CDT Dangelo arroyo MD [facility] CPT-57320 Level 3 Est. Patient 16:54:37 CDT Checo Conklin MD [facility] Procedures Code Procedure Name Date Entry Date Standard Desc ription CPT-LR Lesion Removal 19:53:27 CDT CPT-OV Office Visit 11:31:28 CDT CPT-62596 Tubersol 09:39:29 CDT CPT-J2550 Phenergan 25 mg (Promethazine) 13:59:02 ASSISTANT PLANT MANAGER CPT-J1885 Toradol 60 mg (Ketorolac) 13:59:02 ASSISTANT PLANT MANAGER 2012
--- OUTSIDE RECORDS SUMMARY | 2019-09-29 02:28 | XMS REPORT | Clinical Summary ---
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 Tanner Carrillo MD Neoplasm of uncertain behavior of skin Abdominal pain, generalized 789.07 Active Jillina Frazell PLANETARIUM TECHNICIAN Abdominal pain, generalized Urinary frequency 788.41 Active Jillina Frazell PLANETARIUM TECHNICIAN Urinary frequency BREAST CANCER ICD-V16.3 Inactive Checo [...] tab by mouth twice daily 2 TRIMETHOPRIM-SULFAMETHOXAZOLE 52091985369 No Longer Active Tanner Carrillo MD Active DIFLUCAN 150 MG TAB 1 tablet by mouth qod FLUCO NAZOLE 86228172395 No Longer Active Efren Medel APRN Active CLARITIN 10 MG TAB 1 tablet by mouth daily as needed for allergies LORATADINE 75726589140 Active Americollmanuela Medel PLANETARIUM TECHNICIAN Active AZITHROMYCIN 250 MG TABS 2 po qd x 1 day, then 1 po qd x 4 days AZITHROMYCIN 90321973075 No Longer Active Jillmanuela Medel APRN Active FLAGYL 500 MG TAB 1 tablet by mouth bid METRONI DAZOLE 83517949908 No Longer Active Checo Conklin MD Active FOCALIN XR 10 MG ORAL [id number] 1 po q a.m. DEX METHYLPHENIDATE HCL 28945455075 Active Checo Conklin MD Active MAGNESIUM CITRATE 1.745 GM/30ML ORAL SOLN 150ml po BID PRN C onstipation MAGNESIUM CITRATE 32914101212 No Longer Active Checo Conklin MD Active BACTROBAN 2 % CREAM Apply to affected area BID for up to 10 days MUPIROCIN CALCIUM 84834789997 No Longer Active Checo Conklin MD Active HYDROCODONE-ACETAMINOPHEN 5-325 MG TABS 1 tab by mouth every 6 hours as needed HYDROCODONE-ACETAMINOPHEN 67412856102 No Longer Activ e Checo Conklin MD Active IBUPROFEN 800 MG TABS 1 tab every 8 hours with food 20 31/03/21 IBUPROFEN 11230327835 No Longer Active Checo Conklin MD Activ e DIFLUCAN 150 MG TAB 1 tablet by mouth if needed, hold until symptoms start FLUCONAZOLE 62946525600 No Longer Active Checo Ortiz MD Active BACTRIM DS 800-160 MG TAB 1 tab by mouth twice daily 2 TRIMETHOPRIM-SULFAMETHOXAZOLE 81932192970 No Longer Active Corry leong LPN Active MIRALAX PACK 1 po qd PRN Constipation POLYETHYL JOEL GLYCOL 3350 34322754608 Active Checo Conklin MD Active HYDROCODONE-ACETAMINOPHEN 5-325 MG TABS 0.5 to 1 tab b y mouth every 6 hours as needed HYDROCODONE-ACETAMINOPHEN 54232082393 No Longer Active Checo Conklin MD Active ONDANSETRON [address] one tablet on tongue and allow to dissolve every 6 hours as needed for vomitting ONDANSETRO N 61280002736 No Longer Active Checo Conklin MD Active COMPRO 25 MG RECTAL SUPP insert or apply one supposit ory rectally as directed every 12 hours as needed for nausea PROCHLORPERA ZINE 06722657817 No Longer Active Checo Conklin MD Active SUMATRIPTAN SUCCINATE 100 MG ORAL TABS Take one PRN for migrane SUMATRIPTAN SUCCINATE 46878724759 No Longer Active Checo Conklin MD Active TRAVEL SICKNESS 25 MG ORAL CHEW chew and swallow one t ablet every 6 hours as needed MECLIZINE HCL 73555569429 No Longer Active Joe Conklin MD Active BUPROPION HCL ER (SR) 100 MG ORAL [id number] take one t ablet by mouth one time daily for one week then take 1 two times daily BUPROPION HCL 44987117235 No Longer Active Checo Conklin MD Activ e TERBINAFINE HCL 250 MG ORAL TABS take one table PO one time abran y TERBINAFINE HCL 12257931427 No Longer Active Checo Conklin MD Active METOCLOPRAMIDE HCL 10 MG ORAL TABS take one PO tid PRN nausea 20 29/12/14 METOCLOPRAMIDE HCL 78648182422 No Longer Active Checo Conklin MD Active DICLOFENAC SODIUM 75 MG TBEC 1 tablet by mouth twice daily P RN Knee pain DICLOFENAC SODIUM 08524705643 No Longer Active Checo Conklin MD Active LAMISIL 250 MG TAB 1 po qd TERBINAFINE HCL 548 78259993 No Longer Active Checo Conklin MD Active REGLAN 10 MG TAB 1 po TID PRN Nausea METOCLOPRA MIDE HCL 27266428325 No Longer Active Checo Conklin MD Active CELEXA 20 MG TABS 1 tablet by mouth daily CITALOPRAM HYDROBROMIDE 18682981434 No Longer Active Checo Conklin MD Activ e AZITHROMYCIN 250 MG TABS 2 po qd x 1 day, then 1 po qd x 4 days AZITHROMYCIN 51779655376 No Longer Active Checo Conklin MD Active HYDROCODONE-ACETAMINOPHEN 5-325 MG TABS 1 po q 6hr PRN Pain 2013 HYDROCODONE-ACETAMINOPHEN 80402317973 No Longer Active Lenora Conklin MD Active PHENAZOPYRIDINE HCL 200 MG TABS take 1 tab po TID for bladder pa in PHENAZOPYRIDINE HCL 88544351309 No Longer Active Checo Joshua Active CIPRO 500 MG TAB 1 tablet by mouth twice daily CIPROFLOXACIN HCL 24044507544 No Longer Active Dangelo Ranegl MD Active HYDROCODONE-ACETAMINOPHEN 5-325 MG TABS 1/2 to 1 po q 4 hour s prn cough HYDROCODONE-ACETAMINOPHEN 22345012783 No Longer Activ e Dangelo Rangel MD Active BACTRIM DS 800-160 MG TABS 1 po BID x 7 days 0 SULFAMETHOXAZOLE-TRIMETHOPRIM 79705452177 No Longer Active Checo Conklin MD Active PREDNISONE 20 MG TAB 2 tabs daily for 3 days, 1 t ab daily for 3 days, 1/2 tab daily for 2 days PREDNISONE 61290853001 No Longer Active Checo Conklin MD Active TRIAMCINOLONE ACETONIDE 0.1 % OINT Apply to affected a reas TID for up to 2 weeks TRIAMCINOLONE ACETONIDE 93271560270 No Longer A ctive Checo Conklin MD Active CEFDINIR 300 MG CAPS by mouth twice a day CEFDI JAZZY 71170171475 No Longer Active Dangelo Rangel MD Active BUPROPION HCL (SMOKING DETER) 150 MG [id number] 1 a day for 1 week then 1 twice a day BUPROPION HCL (SMOKING DETER) 08464211103 No Lo nger Active Checo Conklin MD Active SIMVASTATIN 20 MG TABS 1 po qd SIMVASTATIN 8185859121 5 Active Checo Conklin MD Active CHANTIX STARTING MONTH KARTHIK 0.5 MG X 11 & 1 MG X 42 TAB S 0.5mg daily for 3 days, then 0.5mg BID for 4 days, then 1mg BID VARENICLINE TARTRATE 81047799877 No Longer Active Checo Conklin MD Activ e XANAX 0.5 MG TABS 1 po BID PRN anxiety ALPRAZOLAM 19705954308 Active Checo Conklin MD Active CONCERTA 18 MG CR-TABS 1 po q a.m. METHYLPHENID ATE HCL 76476192676 No Longer Active Checo Conklin MD Active AMBIEN 5 MG TAB 1 po qHS PRN Insomnia ZOLPIDEM TARTRATE 62301457761 Active Checo Conklin MD Active TRAZODONE HCL 100 MG TAB 0.5 to 1 po qHS PRN Insomnia TRAZODONE HCL 81385219179 No Longer Active Checo Conklin MD Acti ve FIORICET 325-50-40 MG TAB 1 tablet by mouth four times daily as needed [id number] 44753439346 No Longer Active Checo Conklin MD Active PHENERGAN CREAM* 25mg applied to wrist q6hr PRN Nausea PHENERGAN CREAM* No Longer Active Checo Conklin MD A ctive FLONASE 50 MCG/ACT SUSP 1 spray each nostril am and hs FLUTICASONE PROPIONATE 91319576667 No Longer Active Checo Simms e ANTIPYRINE-BENZOCAINE 5.4-1.4 % SOLN 1-2 drops in affected ear BENZOCAINE-ANTIPYRINE 88138837334 No Longer Active Checo Conklin MD Active CEFDINIR 300 MG CAPS 1 po bid CEFDINIR 57741760 120 No Longer Active Checo Conklin MD Active PREDNISONE 20 MG TAB 2 tabs daily for 3 days, 1 t ab daily for 3 days, 1/2 tab daily for 2 days PREDNISONE 87646352390 No Longer Active Aracelis Conklin MD Active AZITHROMYCIN 250 MG TABS 2 po qd x 1 day, then 1 po qd x 4 days AZITHROMYCIN 04672855222 No Longer Active Checo Conklin MD Active PREDNISONE 20 MG TAB 2 tabs daily for 3 days, 1 t ab daily for 3 days, 1/2 tab daily for 2 days PREDNISONE 03636123291 No Longer Active Checo Conklin MD Active ZITHROMAX Z-KARTHIK 250 MG TABS 2 today, then 1 daily for 4 days 201 09/18/28 AZITHROMYCIN 86752549248 No Longer Active Paul Hamlin MD Active FOCALIN XR 10 MG [id number] 1 po q a.m. D EXMETHYLPHENIDATE HCL 85364493032 No Longer Active Paul Hamlin MD Activ e PERCOCET 10-325 MG TABS 1 tablet every 6 hours as needed for pain OXYCODONE-ACETAMINOPHEN 21770859125 No Longer Active Paul Hamlin MD Active LORTAB 5 5-500 MG TABS 1/2 to 1 tablet by mouth flaquito ry 4 hours as needed for pain HYDROCODONE-ACETAMINOPHEN 64611435903 No Longer Active Checo Conklin MD Active FOCALIN XR 15 MG [id number] 1 po q a.m. D EXMETHYLPHENIDATE HCL 37970448314 No Longer Active Checo Conklin MD Activ e ZOFRAN ODT 4 MG TBDP 1 po q6hr PRN Nausea ONDAN SETRON 83753722716 No Longer Active Checo Conklin MD Active PERCOCET 5-325 MG TABS 1 tablet by mouth every 6 hours as needed OXYCODONE-ACETAMINOPHEN 61431601104 No Longer Active Checo Conklin MD Active PYRIDIUM 200 MG TABS take 1 tab po TID prn urinary pain. 0 PHENAZOPYRIDINE HCL 38660946530 No Longer Active Checo Conklin MD Active FLUCONAZOLE 150 MG TABS take 1 tab po qday once 04/06 FLUCONAZOLE 54335445493 No Longer Active Dangelo Rangel MD Acti ve CIPRO 500 MG TAB 1 tablet by mouth twice daily CIPROFLOXACIN HCL 43793852831 No Longer Active Dangelo Rangel MD Active PYRIDIUM 200 MG TABS take 1 tab po TID prn urinary pain. 0 PYRIDIUM 200 MG TABS 6563568 PHENAZOPYRIDINE HCL Inactive PERCOCET 5-325 MG TABS 1 tablet by mouth every 6 hours as needed PERCOCET 5-325 MG TABS 5518881 OXYCODONE-ACETAMINOPHEN I nactive ZOFRAN ODT 4 MG TBDP 1 po q6hr PRN Nausea ZOFRAN ODT 4 MG TBDP 938383 ONDANSETRON Inactive FOCALIN XR 15 MG [id number] 1 po q a.m. F OCALIN XR 15 MG [id number] DEXMETHYLPHENIDATE HCL Inactive LORTAB 5 5-500 MG TABS 1/2 to 1 tablet by mouth flaquito ry 4 hours as needed for pain LORTAB 5 5-500 MG TABS HYDROCODONE-A CETAMINOPHEN Inactive PERCOCET 10-325 MG TABS 1 tablet every 6 hours as needed for pain PERCOCET 10-325 MG TABS 6428044 OXYCODONE-ACETAMINOPHEN Inactive FOCALIN XR 10 MG [id number] 1 po q a.m. F OCALIN XR 10 MG [id number] DEXMETHYLPHENIDATE HCL Inactive CEFDINIR 300 MG CAPS 1 po bid CEFDINIR 300 MG CAPS 20 0346 CEFDINIR Inactive ANTIPYRINE-BENZOCAINE 5.4-1.4 % SOLN 1-2 drops in affected ear ANTIPYRINE-BENZOCAINE 5.4-1.4 % SOLN 474842 BENZOCAINE-ANTIPYRINE I nactive FLONASE 50 MCG/ACT SUSP [...] PRN Insomnia TRAZODONE HCL 100 MG TAB 606105 TRAZODONE HCL Inactive CONCERTA 18 MG CR-TABS [...] s prn cough HYDROCODONE-ACETAMINOPHEN 5-325 MG TABS 135479 HYDROCODONE-ACETAMINOPHEN Inactive PHENAZOPYRIDINE HCL 200 MG TABS take 1 tab po TID for bladder pa in PHENAZOPYRIDINE HCL 200 MG TABS 3817904 PHENAZOPYRIDINE HCL Inactive HYDROCODONE-ACETAMINOPHEN 5-325 MG TABS 1 po q 6hr PRN Pain 2013 HYDROCODONE-ACETAMINOPHEN 5-325 MG TABS 122785 HYDROCODONE-ACETAMINOPHEN Inactive CELEXA 20 MG TABS 1 tablet by mouth daily CELEXA 20 MG TABS 030748 CITALOPRAM HYDROBROMIDE Inactive REGLAN 10 MG TAB 1 po TID PRN Nausea REGLAN 10 MG TAB 408934 METOCLOPRAMIDE HCL Inactive LAMISIL 250 MG TAB 1 po qd LAMISIL 250 MG TAB 826781 TERBINAFINE HCL Inactive DICLOFENAC SODIUM 75 MG TBEC 1 tablet by mouth twice daily P RN Knee pain DICLOFENAC SODIUM 75 MG TBEC 520459 DICLOFENAC S ODIUM Inactive METOCLOPRAMIDE HCL 10 MG ORAL TABS take one PO tid PRN nausea 20 29/12/14 METOCLOPRAMIDE HCL 10 MG ORAL TABS 869619 METOCLOPRAMID E HCL Inactive TERBINAFINE HCL 250 MG ORAL TABS take one table PO one time abran y TERBINAFINE HCL 250 MG ORAL TABS 144552 TERBINAFINE HCL Inactive BUPROPION HCL ER (SR) 100 MG ORAL [id number] take one t ablet by mouth one time daily for one week then take 1 two times daily BUPROPION HCL ER (SR) 100 MG ORAL [id number] BUPROPION HCL Inacti ve TRAVEL SICKNESS 25 MG ORAL CHEW chew and swallow one t ablet every 6 hours as needed TRAVEL SICKNESS 25 MG ORAL CHEW 754583 MECLIZINE HCL Inactive SUMATRIPTAN SUCCINATE 100 MG ORAL TABS Take one PRN for migrane SUMATRIPTAN SUCCINATE 100 MG ORAL TABS 671114 SUMATRIPT AN SUCCINATE Inactive COMPRO 25 MG RECTAL SUPP insert or apply one supposit ory rectally as directed every 12 hours as needed for nausea COMP RO 25 MG RECTAL SUPP 063477 PROCHLORPERAZINE Inactive ONDANSETRON [address] one tablet on tongue and allow to dissolve every 6 hours as needed for vomitting ON DANSETRON 8 MG ORAL TBDP 778835 ONDANSETRON Inactive HYDROCODONE-ACETAMINOPHEN 5-325 MG TABS 0.5 to 1 tab b y mouth every 6 hours as needed HYDROCODONE-ACETAMINOPHEN 5-325 MG TABS 8 71180 HYDROCODONE-ACETAMINOPHEN Inactive BACTRIM DS 800-160 MG TAB 1 tab by mouth twice daily 2 BACTRIM DS 800-160 MG TAB 239279 TRIMETHOPRIM-SULFAMETHOXAZOLE Inac tive DIFLUCAN 150 MG TAB 1 tablet by mouth if needed, hold until symptoms start DIFLUCAN 150 MG TAB 649311 FLUCONAZOLE Inactive IBUPROFEN 800 MG TABS 1 tab every 8 hours with food 20 31/03/21 IBUPROFEN 800 MG TABS 542558 IBUPROFEN Inactive HYDROCODONE-ACETAMINOPHEN 5-325 MG TABS 1 tab by mouth every 6 hours as needed HYDROCODONE-ACETAMINOPHEN 5-325 MG TABS 989757 HYDROCODONE-ACETAMINOPHEN Inactive BACTROBAN 2 % CREAM Apply to affected area BID for up to 10 days BACTROBAN 2 % CREAM 948328 MUPIROCIN CALCIUM Inactive MAGNESIUM CITRATE 1.745 GM/30ML ORAL SOLN 150ml po BID PRN C onstipation MAGNESIUM CITRATE 1.745 GM/30ML ORAL SOLN 402206 0 MAGNESIUM CITRATE Inactive DIFLUCAN 150 MG TAB 1 tablet by mouth qod DIFLUCAN 150 MG TAB 173162 FLUCONAZOLE Inactive BACTRIM DS 800-160 MG TAB 1 tab by mouth twice daily 2 BACTRIM DS 800-160 MG TAB 367208 TRIMETHOPRIM-SULFAMETHOXAZOLE Inac tive CIPRO 500 MG TAB 1 tablet by mouth twice daily CIPRO 500 MG TAB 255236 CIPROFLOXACIN HCL Inactive FLUCONAZOLE 150 MG TABS take 1 tab po qday once 04/06 FLUCONAZOLE 150 MG TABS 19760325 FLUCONAZOLE Inactive ZITHROMAX Z-KARTHIK 250 MG TABS 2 today, then 1 daily for 4 days 201 09/18/28 ZITHROMAX Z-KARTHIK 250 MG TABS 0500032 AZITHROMYCIN Inac tive PREDNISONE 20 MG TAB 2 tabs daily for 3 days, 1 t ab daily for 3 days, 1/2 tab daily for 2 days PREDNISONE 20 MG TAB 200315 PREDNISON E Inactive AZITHROMYCIN 250 MG TABS 2 po qd x 1 day, then 1 po qd x 4 days AZITHROMYCIN 250 MG TABS 8083199 AZITHROMYCIN Inactiv e PREDNISONE 20 MG TAB 2 tabs daily for 3 days, 1 t ab daily for 3 days, 1/2 tab daily for 2 days PREDNISONE 20 MG TAB 060581 PREDNISON E Inactive CEFDINIR 300 MG CAPS by mouth twice a day CEFDINIR 300 MG CAPS 285702 CEFDINIR Inactive TRIAMCINOLONE ACETONIDE 0.1 % OINT Apply to affected a reas TID for up to 2 weeks TRIAMCINOLONE ACETONIDE 0.1 % OINT 027859 6 TRIAMCINOLONE ACETONIDE Inactive PREDNISONE 20 MG TAB 2 tabs daily for 3 days, 1 t ab daily for 3 days, 1/2 tab daily for 2 days PREDNISONE 20 MG TAB 545526 PREDNISON E Inactive BACTRIM DS 800-160 MG TABS 1 po BID x 7 days 0 BACTRIM DS 800-160 MG TABS 460680 SULFAMETHOXAZOLE-TRIMETHOPRIM Inactive CIPRO 500 MG TAB 1 tablet by mouth twice daily CIPRO 500 MG TAB 215735 CIPROFLOXACIN HCL Inactive AZITHROMYCIN 250 MG TABS 2 po qd x 1 day, then 1 po qd x 4 days AZITHROMYCIN 250 MG TABS 9752090 AZITHROMYCIN Inactiv e FLAGYL 500 MG TAB 1 tablet by mouth bid FLAGYL 500 MG TAB 270925 METRONIDAZOLE Inactive AZITHROMYCIN 250 MG TABS 2 po qd x 1 day, then 1 po qd x 4 days AZITHROMYCIN 250 MG TABS 9924919 AZITHROMYCIN Inactiv e Immunizations Vaccine Administration Date [...] CBC W/DIFF, Comp. Metabolic Panel, Qual [facility] [place] Chemistry sodium, serum 139 mmol/L 523-483 3583/10/21 carbon dioxide, venous blood 33.5 mmol/L 21.0-32 [...] CBC W/DIFF, Comp. Metabolic Panel, Qual [facility] [place] Hematology leukocyte count, blood 7.9 10^3/MM^3 [...] dipstick Negative Negative sodium, serum 141 mmol/L 724-013 2877/01/26 carbon dioxide, venous blood 30.0 mmol/L 21.0-32 .0 potassium, serum 4.0 mmol/L 3.5-5.2 chloride, serum 105 mmol/L 98-107 blood glucose 85 mg/dL 65-110 urea nitrogen, blood 9 mg/dL 7-18 creatinine, serum 0.66 mg/dL 0.55-1.30 alanine aminotransferase (SGPT), serum 31 U/L 12-78 aspartate aminotransferase (SGOT), serum 21 U/L 15-37 calcium, serum 8.2 mg/dL 8.5-10.1 bilirubin, serum, total 1.10 mg/dL 0.00-1.00 cholesterol, serum 178 mg/dL 267-624 6417/01/26 triglyceride, serum, fasting 149 mg/dL 30-200 HDL [...] ... - Chemistry sodium, serum 137 mmol/L 161-771 4676/05/27 carbon dioxide, venous blood 29.1 mmol/L 21.0-32 [...] 5.0-8.5 Encounters Code Encounter Date Provider Facility CPT-89175 Level 3 Est. Patient 09:11:49 CDT Efren almendarez APRN [facility] CPT-89327 Level 2 Est. Patient 19:53:27 CDT Tanner hill MD [facility] CPT-52490 Level 3 Est. Patient 09:15:34 CD[facility]-80345 Level 3 Est. Patient 11:28:51 CURRICULUM AND ASSESSMENT DIRECTOR Efren almendarez APRN [facility] CPT-48520 Level 4 Est. Patient 13:55:46 CURRICULUM AND ASSESSMENT DIRECTOR Checo Conklin MD [facility] CPT-21782 Level 4 Est. Patient 17:10:53 CDT Checo Conklin MD [facility] CPT-49302 Level 3 Est. Patient 15:56:22 CDT Checo Conklin MD [facility] CPT-36682 Level 3 Est. Patient 15:29:07 CDT Checo Conklin MD [facility] CPT-43054 Level 3 Est. Patient 14:38:41 CDT Checo Conklin MD [facility] CPT-10749 Level 3 Est. Patient 15:22:03 CURRICULUM AND ASSESSMENT DIRECTOR Thomas reynolds DO [facility] CPT-61135 Level 3 Est. Patient 13:34:17 CURRICULUM AND ASSESSMENT DIRECTOR Checo Conklin MD [facility] CPT-37001 Level 3 Est. Patient 12:29:32 CDT Dangelo arroyo MD [facility] CPT-55540 Level 3 Est. Patient 16:53:02 CDT Checo Conklin MD [facility] CPT-96021 Level 3 Est. Patient 16:37:13 CDT Checo Conklin MD [facility] CPT-11763 Level 3 Est. Patient 16:16:59 CDT Paul Hamlin MD [facility] CPT-69741 Level 3 Est. Patient 14:20:13 CDT Dangelo arroyo MD [facility] CPT-75226 Level 4 Est. Patient 11:29:33 CDT Checo Conklin MD [facility] CPT-58353 Level 3 Est. Patient 17:08:31 CDT Checo Conklin MD [facility] CPT-71497 Level 3 Est. Patient 16:50:42 CURRICULUM AND ASSESSMENT DIRECTOR Checo Conklin MD [facility] CPT-61617 Level 4 Est. Patient 09:26:08 CURRICULUM AND ASSESSMENT DIRECTOR Checo Conklin MD [facility] CPT-21348 Level 3 Est. Patient 11:37:10 CDT Checo Conklin MD [facility] CPT-83581 Level 4 Est. Patient 14:07:38 CDT Checo Conklin MD [facility] CPT-01484 Level 3 Est. Patient 09:54:41 CDT Checo Conklin MD [facility] CPT-20203 Level 3 Est. Patient 11:10:54 CDT Paul Hamlin MD [facility] CPT-41145 Level 3 Est. Patient 14:16:56 CURRICULUM AND ASSESSMENT DIRECTOR Checo Conklin MD [facility] CPT-50372 Level 3 Est. Patient 11:04:11 CURRICULUM AND ASSESSMENT DIRECTOR Checo Conklin MD [facility] CPT-40260 Level 3 Est. Patient 17:09:26 CDT Dangelo arroyo MD [facility] CPT-21468 Level 3 Est. Patient 16:54:37 CDT Checo Conklin MD [facility] Procedures Code Procedure Name Date Entry Date Standard Desc ription CPT-37169 UA w micro - LAB USE ONLY 17:06:46 CDT 2015 CPT-12007 [facility] Qual - LAB USE ONLY 17:06:46 CDT 05/06 CPT-64427 CMP - LAB USE ONLY 17:06:46 CDT CPT-01548 CBC with Diff - LAB USE ONLY 17:06:45 CDT 2 CPT-76212 Venipuncture Draw Fee 17:06:45 CDT CPT-LR Lesion Removal 19:53:27 CDT CPT-OV Office Visit 11:31:28 CDT CPT-26844 Tubersol 09:39:29 CDT CPT-J2550 Phenergan 25 mg (Promethazine) 13:59:02 CURRICULUM AND ASSESSMENT DIRECTOR CPT-J1885 Toradol 60 mg (Ketorolac) 13:59:02 CURRICULUM AND ASSESSMENT DIRECTOR 2012
--- OUTSIDE RECORDS SUMMARY | 2019-09-29 02:29 | XMS REPORT | Clinical Summary ---
Author Author Admin, Bethany Ayala [facility] Address Unknown Phone Unavailable Allergies, Adverse Reactions, Alerts Allergy Name Reaction Description Start Date Severity Status Pr ovider CODEINE Critical Active Checo richey MD Conditions or Problems Problem Name Problem Code [...] Lump or mass in breast Mastalgia 611.71 Active Vicky Dozier MD Mastodynia BREAST CANCER ICD-V16.3 Inactive Checo Joshua FH DIABETES ICD-V18.0 Inactive Checo Conklin MD 201 08/27/26 CONCUSSION ICD-850.9 Inactive Checo Joshua UTI ICD-599.0 Inactive Checo Conklin MD 2011 ABDOMINAL PAIN RIGHT LOWER QUADRANT ICD-789.03 Inactive Checo Conklin MD HEADACHE, TENSION ICD-307.81 Inactive Checo Conklin MD PHARYNGITIS ICD-462 Inactive Checo Conklin MD OTITIS MEDIA-RIGHT ICD-382.9 Inactive Checo Conklin MD Onychomycosis, toenails ICD-110.1 Ozzy Conklin MD Hypoglycemia, unspecified ICD-251.2 Inactive Checo Conklin MD Insomnia ICD-780.52 Inactive Checo Joshua Medication List Medication Instructions Start Date Stop Date Generic Name ND Status Provider Patient Instruction CELEXA 20 MG TABS 1 tablet by mouth daily CITAL OPRAM HYDROBROMIDE 06296898712 Active Checo Conklin MD Active BUPROPION HCL (SMOKING DETER) 150 MG [id number] 1 a day for 1 week then 1 twice a day BUPROPION HCL (SMOKING DETER) 86591115897 No Lo nger Active Checo Conklin MD Active SIMVASTATIN 20 MG TABS 1 po qd SIMVASTATIN 2695209336 4 Active Checo Conklin MD Active CHANTIX STARTING MONTH KARTHIK 0.5 MG X 11 & 1 MG X 42 TAB S 0.5mg daily for 3 days, then 0.5mg BID for 4 days, then 1mg BID VARENICLINE TARTRATE 62065518517 No Longer Active Checo Conklin MD Activ e XANAX 0.5 MG TABS 1 po BID PRN anxiety ALPRAZOLAM 54246440776 Active Checo Conklin MD Active CONCERTA 18 MG CR-TABS 1 po q a.m. METHYLPHENID ATE HCL 61091186713 No Longer Active Checo Conklin MD Active REGLAN 10 MG TAB 1 po TID PRN Nausea METOCLOPRA MIDE HCL 38892279096 Active Checo Conklin MD Active AMBIEN 5 MG TAB 1 po qHS PRN Insomnia ZOLPIDEM TARTRATE 74871919631 Active Checo Conklin MD Active TRAZODONE HCL 100 MG TAB 0.5 to 1 po qHS PRN Insomnia TRAZODONE HCL 29680595301 No Longer Active Checo Conklin MD Acti ve FIORICET 325-50-40 MG TAB 1 tablet by mouth four times daily as needed [id number] 86670658355 No Longer Active Checo Conklin MD Active PHENERGAN CREAM* 25mg applied to wrist q6hr PRN Nausea PHENERGAN CREAM* No Longer Active Checo Conklin MD A ctive LAMISIL 250 MG TAB 1 po qd TERBINAFINE HCL 1223965054 1 Active Checo Conklin MD Active FLONASE 50 MCG/ACT SUSP 1 spray each nostril am and hs FLUTICASONE PROPIONATE 48065134382 No Longer Active Checo Conklin MD Activ e ANTIPYRINE-BENZOCAINE 5.4-1.4 % SOLN 1-2 drops in affected ear BENZOCAINE-ANTIPYRINE 89840006873 No Longer Active Checo Conklin MD Active CEFDINIR 300 MG CAPS 1 po bid CEFDINIR 61331754 120 No Longer Active Checo Conklin MD Active PREDNISONE 20 MG TAB 2 tabs daily for 3 days, 1 t ab daily for 3 days, 1/2 tab daily for 2 days PREDNISONE 19779431370 No Longer Active Aracelis Conklin MD Active AZITHROMYCIN 250 MG TABS 2 po qd x 1 day, then 1 po qd x 4 days AZITHROMYCIN 94809686673 No Longer Active Checo Conklin MD Active PREDNISONE 20 MG TAB 2 tabs daily for 3 days, 1 t ab daily for 3 days, 1/2 tab daily for 2 days PREDNISONE 76080602067 No Longer Active Checo Conklin MD Active ZITHROMAX Z-KARTHIK 250 MG TABS 2 today, then 1 daily for 4 days 201 09/18/28 AZITHROMYCIN 00043697436 No Longer Active Paul Hamlin MD Active FOCALIN XR 10 MG [id number] 1 po q a.m. D EXMETHYLPHENIDATE HCL 26468243480 No Longer Active Paul Hamlin MD Activ e PERCOCET 10-325 MG TABS 1 tablet every 6 hours as needed for pain OXYCODONE-ACETAMINOPHEN 02715245383 No Longer Active Paul Hamlin MD Active LORTAB 5 5-500 MG TABS 1/2 to 1 tablet by mouth flaquito ry 4 hours as needed for pain HYDROCODONE-ACETAMINOPHEN 15535407542 No Longer Active Checo Conklin MD Active FOCALIN XR 15 MG [id number] 1 po q a.m. D EXMETHYLPHENIDATE HCL 54076510155 No Longer Active Checo Conklin MD Activ e ZOFRAN ODT 4 MG TBDP 1 po q6hr PRN Nausea ONDAN SETRON 94692356993 No Longer Active Checo Conklin MD Active PERCOCET 5-325 MG TABS 1 tablet by mouth every 6 hours as needed OXYCODONE-ACETAMINOPHEN 10169529218 No Longer Active Checo Conklin MD Active PYRIDIUM 200 MG TABS take 1 tab po TID prn urinary pain. 0 PHENAZOPYRIDINE HCL 58146113139 No Longer Active Checo Conklin MD Active FLUCONAZOLE 150 MG TABS take 1 tab po qday once 04/06 FLUCONAZOLE 61693859479 No Longer Active Dangelo Rangel MD Acti ve CIPRO 500 MG TAB 1 tablet by mouth twice daily CIPROFLOXACIN HCL 92408444662 No Longer Active Dangelo Rangel MD Active PYRIDIUM 200 MG TABS take 1 tab po TID prn urinary pain. 0 PYRIDIUM 200 MG TABS 3365126 PHENAZOPYRIDINE HCL Inactive PERCOCET 5-325 MG TABS 1 tablet by mouth every 6 hours as needed PERCOCET 5-325 MG TABS 6122243 OXYCODONE-ACETAMINOPHEN I nactive ZOFRAN ODT 4 MG TBDP 1 po q6hr PRN Nausea ZOFRAN ODT 4 MG TBDP 580161 ONDANSETRON Inactive FOCALIN XR 15 MG [id number] 1 po q a.m. F OCALIN XR 15 MG [id number] DEXMETHYLPHENIDATE HCL Inactive LORTAB 5 5-500 MG TABS 1/2 to 1 tablet by mouth flaquito ry 4 hours as needed for pain LORTAB 5 5-500 MG TABS HYDROCODONE-A CETAMINOPHEN Inactive PERCOCET 10-325 MG TABS 1 tablet every 6 hours as needed for pain PERCOCET 10-325 MG TABS 0960102 OXYCODONE-ACETAMINOPHEN Inactive FOCALIN XR 10 MG [id number] 1 po q a.m. F OCALIN XR 10 MG [id number] DEXMETHYLPHENIDATE HCL Inactive CEFDINIR 300 MG CAPS 1 po bid CEFDINIR 300 MG CAPS 20 0346 CEFDINIR Inactive ANTIPYRINE-BENZOCAINE 5.4-1.4 % SOLN 1-2 drops in affected ear ANTIPYRINE-BENZOCAINE 5.4-1.4 % SOLN 184103 BENZOCAINE-ANTIPYRINE I nactive FLONASE 50 MCG/ACT SUSP 1 spray each nostril am and hs FLONASE 50 MCG/ACT SUSP 987221 FLUTICASONE PROPIONATE Inactive PHENERGAN CREAM* 25mg applied to wrist q6hr PRN Nausea PHENERGAN CREAM* Inactive FIORICET 325-50-40 MG TAB 1 tablet by mouth four times daily as needed FIORICET 325-50-40 MG TAB ACETAMINOPHEN-C AFF-BUTALBITAL Inactive TRAZODONE HCL 100 MG TAB 0.5 to 1 po qHS PRN Insomnia TRAZODONE HCL 100 MG TAB 868880 TRAZODONE HCL Inactive CONCERTA 18 MG CR-TABS [...] MG X 42 TABS VARENICLINE TARTRATE Inactive CIPRO 500 MG TAB 1 tablet by mouth twice daily CIPRO 500 MG TAB 966647 CIPROFLOXACIN HCL Inactive FLUCONAZOLE 150 MG TABS take 1 tab po qday once 04/06 FLUCONAZOLE 150 MG TABS 397703 FLUCONAZOLE Inactive ZITHROMAX Z-KARTHIK 250 MG TABS 2 today, then 1 daily for 4 days 201 09/18/28 ZITHROMAX Z-KRATHIK 250 MG TABS 2123973 AZITHROMYCIN Inac tive PREDNISONE 20 MG TAB 2 tabs daily for 3 days, 1 t ab daily for 3 days, 1/2 tab daily for 2 days PREDNISONE 20 MG TAB 563948 PREDNISON E Inactive AZITHROMYCIN 250 MG TABS 2 po qd x 1 day, then 1 po qd x 4 days AZITHROMYCIN 250 MG TABS 8008994 AZITHROMYCIN Inactiv e PREDNISONE 20 MG TAB 2 tabs daily for 3 days, 1 t ab daily for 3 days, 1/2 tab daily for 2 days PREDNISONE 20 MG TAB 099453 PREDNISON E Inactive Immunizations Vaccine Administration Date Value Standard Michael cription TB-PPD (tuberculin purified protein derivative), intra dermal administration Tubersol Vital Signs Date Name Value Unit Range Description blood pressure, diastolic - 8462-4 72 mm[Hg] [...] - 3141-9 106.44 [lb_av] Weigh t Measured blood pressure, diastolic - 8462-4 82 mm[Hg] BP mathew blood pressure, systolic - 8480-6 114 mm[Hg] BP sys height E&M - 8302-2 63.5 [in_us] Bdy h eight pulse rate E&M - 8867-4 61 /min H eart rate temperature E&M 96.7 [degF] Body temp erature weight E&M - 3141-9 115 [lb_av] Weigh t Measured blood pressure, diastolic - 8462-4 81 mm[Hg] BP mathew blood pressure, systolic - 8480-6 117 mm[Hg] BP sys height E&M - 8302-2 63.5 [in_us] Bdy h eight pulse rate E&M - 8867-4 57 /min H eart rate temperature E&M 96.8 [degF] Body temp erature weight E&M - 3141-9 116.06 [lb_av] Weigh t Measured Diagnostic Results Date Name Value Unit Range Description Immunizations: Immunization Administrati on - Challenge tests PPD results in mm < 5mm mm Lab Report: HGBA1C, CBC W/DIFF, Comp. Me tabolic Panel, Lipid Panel - Chemistry hemoglobin A1C, blood, as % of total hemoglobin 5.3 % 4.3-6.0 sodium, serum 139 mmol/L 078-415 8654/01/09 potassium, serum 4.3 mmol/L 3.5-5.2 chloride, serum 105 mmol/L 98-107 carbon dioxide, venous blood 25.3 mmol/L 21.0-32 .0 blood glucose 85 mg/dL 65-110 urea nitrogen, blood 10 mg/dL 7-18 creatinine, serum 0.60 mg/dL 0.60-1.30 alanine aminotransferase (SGPT), serum 15 U/L 12-78 aspartate aminotransferase (SGOT), serum 14 U/L 15-37 alkaline phosphatase, serum 85 U/L 50-136 calcium, serum 9.0 mg/dL 8.5-10.1 bilirubin, serum, total 1.10 mg/dL 0.00-1.00 cholesterol, serum 222 mg/dL 285-075 8767/01/09 triglyceride, serum, fasting 92 mg/dL 30-200 HDL cholesterol, serum 41 mg/dL 32-96 LDL cholesterol, serum 163 mg/dL 0-130 Lab Report: HGBA1C, CBC W/DIFF, Comp. Me tabolic Panel, Lipid Panel - Hematology leukocyte count, blood 5.5 10^3/MM^3 10*3/mm3 4.6-10.2 neutrophils as percent of blood leukocytes 51.6 % 42.2-75.2 monocytes as percent of blood leukocytes 8.7 % 1.7-9.3 lymphocytes as percent of blood leukocytes 37.5 % 20.5-51.1 erythrocyte (RBC) count 4.35 10^6/MM^3 10*6/mm3 4.04-5.4 8 hemoglobin, blood 14.5 g/dL 12.0-16.0 hematocrit, blood 43.3 % 36.0-46.0 mean corpuscular volume, RBC 100 fL 80-97 mean corpuscular hemoglobin, RBC 33.2 pg 27. 0-31.2 mean corpuscular hemoglobin concentration, RBC 33.4 G/DL % 31.8-35.4 red blood cell distribution width 13.1 % 11 .6-14.8 platelet count 179 10^3/MM^3 10*3/mm3 142-424 Encounters Code Encounter Date Provider Facility CPT-57479 Level 4 Est. Patient 11:29:33 CDT Checo Conklin MD [facility] CPT-14983 Level 3 Est. Patient 17:08:31 CDT Checo Conklin MD [facility] CPT-79713 Level 3 Est. Patient 16:50:42 CERTIFIED FAMILY MEDIATOR Checo Conklin MD [facility] CPT-03911 Level 4 Est. Patient 09:26:08 CERTIFIED FAMILY MEDIATOR Checo Conklin MD [facility] CPT-34434 Level 3 Est. Patient 11:37:10 CDT Checo Conklin MD [facility] CPT-84986 Level 4 Est. Patient 14:07:38 CDT Checo Conklin MD [facility] CPT-60595 Level 3 Est. Patient 09:54:41 CDT Checo Conklin MD [facility] CPT-97038 Level 3 Est. Patient 11:10:54 CDT Paul Hamlin MD [facility] CPT-77085 Level 3 Est. Patient 14:16:56 CERTIFIED FAMILY MEDIATOR Checo Conklin MD [facility] CPT-86856 Level 3 Est. Patient 11:04:11 CERTIFIED FAMILY MEDIATOR Checo Conklin MD [facility] CPT-99495 Level 3 Est. Patient 17:09:26 CDT Dangelo arroyo MD [facility] CPT-99168 Level 3 Est. Patient 16:54:37 CDT Checo Conklin MD [facility] Procedures Code Procedure Name Date Entry Date Standard Desc ription CPT-OV Office Visit 11:31:28 CDT CPT-58143 Tubersol 09:39:29 CDT CPT-J2550 Phenergan 25 mg (Promethazine) 13:59:02 CERTIFIED FAMILY MEDIATOR CPT-J1885 Toradol 60 mg (Ketorolac) 13:59:02 CERTIFIED FAMILY MEDIATOR 2012
--- OUTSIDE RECORDS SUMMARY | 2019-09-29 02:29 | XMS REPORT | Clinical Summary ---
Author Author Admin, Bethany Gonzales Organization [facility] Address Unknown Phone Allergies, Adverse Reactions, Alerts Allergy Name Reaction Description Start Date Severity Status Pr ovider CODEINE Critical Active Checo richye MD Conditions or Problems Problem Name Problem [...] MD Unspecified otitis media Onychomycosis, toenails 110.1 Active Checo gallagher MD Dermatophytosis of nail Hypoglycemia, unspecified 251.2 Active Hilaria Conklin MD Hypoglycemia, unspecified Insomnia 780.52 Active Checo Conklin MD Insomnia, unspecified Hyperlipidemia 272.4 Active Checo Conklin MD Other and unspecified hyperlipidemia Migraine with aura 346.00 Active Checo Conklin MD Migraine with aura, without mention of intractable migraine, without mention of status migrainosus Breast mass, right 611.72 Active Checo Conklin MD Lump or mass in breast BREAST CANCER ICD-V16.3 Inactive Checo Joshua FH DIABETES ICD-V18.0 Inactive Checo Conklin MD 201 08/27/26 CONCUSSION ICD-850.9 Inactive Checo Joshua UTI ICD-599.0 Inactive Checo Conklin MD 2011 ABDOMINAL PAIN RIGHT LOWER QUADRANT ICD-789.03 Inactive Checo Conklin MD HEADACHE, TENSION ICD-307.81 Inactive Checo Conklin MD PHARYNGITIS ICD-462 Inactive Checo Conklin MD OTITIS MEDIA-RIGHT ICD-382.9 Inactive Checo Conklin MD Medication List Medication Instructions Start Date Stop Date Generic Name NDC Status Provider Patient Instruction XANAX 0.5 MG TABS 1 po BID PRN anxiety ALPRAZOLAM 56171107589 Active Checo Conklin MD Active CHANTIX STARTING MONTH KARTHIK 0.5 MG X 11 & 1 MG X 42 TAB S 0.5mg daily for 3 days, then 0.5mg BID for 4 days, then 1mg BID VARENICL INE TARTRATE 77014256289 Active Checo Conklin MD Active CONCERTA 18 MG CR-TABS 1 po q a.m. METHYLPHENID ATE HCL 30094838483 No Longer Active Checo Conklin MD Active REGLAN 10 MG TAB 1 po TID PRN Nausea METOCLOPRA MIDE HCL 94233396912 Active Checo Conklin MD Active AMBIEN 5 MG TAB 1 po qHS PRN Insomnia ZOLPIDEM TARTRATE 91202556552 Active Checo Conklin MD Active TRAZODONE HCL 100 MG TAB 0.5 to 1 po qHS PRN Insomnia TRAZODONE HCL 57244875843 No Longer Active Checo Conklin MD Acti ve FIORICET 325-50-40 MG TAB 1 tablet by mouth four times daily as needed [id number] 57899745784 No Longer Active Checo Conklin MD Active PHENERGAN CREAM* 25mg applied to wrist q6hr PRN Nausea PHENERGAN CREAM* No Longer Active Checo Conklin MD A ctive SIMVASTATIN 20 MG TABS 1 tab daily at bedtime S IMVASTATIN 06810668398 Active Checo Conklin MD Active LAMISIL 250 MG TAB 1 po qd TERBINAFINE HCL 0425948779 1 Active Checo Conklin MD Active FLONASE 50 MCG/ACT SUSP 1 spray each nostril am and hs FLUTICASONE PROPIONATE 31702500912 No Longer Active Checo Conklin MD Activ e ANTIPYRINE-BENZOCAINE 5.4-1.4 % SOLN 1-2 drops in affected ear BENZOCAINE-ANTIPYRINE 12023058519 No Longer Active Checo Conklin MD Active CEFDINIR 300 MG CAPS 1 po bid CEFDINIR 56794787 120 No Longer Active Checo Conklin MD Active PREDNISONE 20 MG TAB 2 tabs daily for 3 days, 1 t ab daily for 3 days, 1/2 tab daily for 2 days PREDNISONE 19879600845 No Longer Active Aracelis Conklin MD Active AZITHROMYCIN 250 MG TABS 2 po qd x 1 day, then 1 po qd x 4 days AZITHROMYCIN 74082743864 No Longer Active Checo Conklin MD Active PREDNISONE 20 MG TAB 2 tabs daily for 3 days, 1 t ab daily for 3 days, 1/2 tab daily for 2 days PREDNISONE 49915154185 No Longer Active Checo Conklin MD Active ZITHROMAX Z-KARTHIK 250 MG TABS 2 today, then 1 daily for 4 days 201 09/18/28 AZITHROMYCIN 11028885802 No Longer Active Paul Hamlin MD Active FOCALIN XR 10 MG [id number] 1 po q a.m. D EXMETHYLPHENIDATE HCL 05088053204 No Longer Active Paul Hamlin MD Activ e PERCOCET 10-325 MG TABS 1 tablet every 6 hours as needed for pain OXYCODONE-ACETAMINOPHEN 12405795414 No Longer Active Paul Hamlin MD Active LORTAB 5 5-500 MG TABS 1/2 to 1 tablet by mouth flaquito ry 4 hours as needed for pain HYDROCODONE-ACETAMINOPHEN 61880147699 No Longer Active Checo Conklin MD Active FOCALIN XR 15 MG [id number] 1 po q a.m. D EXMETHYLPHENIDATE HCL 43171988962 No Longer Active Checo Conklin MD Activ e ZOFRAN ODT 4 MG TBDP 1 po q6hr PRN Nausea ONDAN SETRON 00346080053 No Longer Active Checo Conklin MD Active PERCOCET 5-325 MG TABS 1 tablet by mouth every 6 hours as needed OXYCODONE-ACETAMINOPHEN 65743488252 No Longer Active Checo Conklin MD Active PYRIDIUM 200 MG TABS take 1 tab po TID prn urinary pain. 0 PHENAZOPYRIDINE HCL 77038354149 No Longer Active Checo Conklin MD Active FLUCONAZOLE 150 MG TABS take 1 tab po qday once 04/06 FLUCONAZOLE 72429006692 No Longer Active Dangelo Rangel MD Acti ve CIPRO 500 MG TAB 1 tablet by mouth twice daily CIPROFLOXACIN HCL 02302284050 No Longer Active Dangelo Rangel MD Active PYRIDIUM 200 MG TABS take 1 tab po TID prn urinary pain. 0 PYRIDIUM 200 MG TABS 9613674 PHENAZOPYRIDINE HCL Inactive PERCOCET 5-325 MG TABS 1 tablet by mouth every 6 hours as needed PERCOCET 5-325 MG TABS 4329726 OXYCODONE-ACETAMINOPHEN I nactive ZOFRAN ODT 4 MG TBDP 1 po q6hr PRN Nausea ZOFRAN ODT 4 MG TBDP 881879 ONDANSETRON Inactive FOCALIN XR 15 MG [id number] 1 po q a.m. F OCALIN XR 15 MG LL80K-RRO DEXMETHYLPHENIDATE HCL Inactive LORTAB 5 5-500 MG TABS 1/2 to 1 tablet by mouth flaquito ry 4 hours as needed for pain LORTAB 5 5-500 MG TABS HYDROCODONE-A CETAMINOPHEN Inactive PERCOCET 10-325 MG TABS 1 tablet every 6 hours as needed for pain PERCOCET 10-325 MG TABS 7456048 OXYCODONE-ACETAMINOPHEN Inactive FOCALIN XR 10 MG [id number] 1 po q a.m. F OCALIN XR 10 MG [id number]-[id number] DEXMETHYLPHENIDATE HCL Inactive CEFDINIR 300 MG CAPS 1 po bid CEFDINIR 300 MG CAPS 20 0346 CEFDINIR Inactive ANTIPYRINE-BENZOCAINE 5.4-1.4 % SOLN 1-2 drops in affected ear ANTIPYRINE-BENZOCAINE 5.4-1.4 % SOLN 172569 BENZOCAINE-ANTIPYRINE I nactive FLONASE 50 MCG/ACT SUSP 1 spray each nostril am and hs FLONASE 50 MCG/ACT SUSP 499386 FLUTICASONE PROPIONATE Inactive PHENERGAN CREAM* 25mg applied to wrist q6hr PRN Nausea PHENERGAN CREAM* Inactive FIORICET 325-50-40 MG TAB 1 tablet by mouth four times daily as needed FIORICET 325-50-40 MG TAB ACETAMINOPHEN-C AFF-BUTALBITAL Inactive TRAZODONE HCL 100 MG TAB 0.5 to 1 po qHS PRN Insomnia TRAZODONE HCL 100 MG TAB 786756 TRAZODONE HCL Inactive CONCERTA 18 MG CR-TABS 1 po q a.m. CONCERTA 18 MG CR-TABS METHYLPHENIDATE HCL Inactive CIPRO 500 MG TAB 1 tablet by mouth twice daily CIPRO 500 MG TAB 031915 CIPROFLOXACIN HCL Inactive FLUCONAZOLE 150 MG TABS take 1 tab po qday once 04/06 FLUCONAZOLE 150 MG TABS 864241 FLUCONAZOLE Inactive ZITHROMAX Z-KARTHIK 250 MG TABS 2 today, then 1 daily for 4 days 201 09/18/28 ZITHROMAX Z-KARTHIK 250 MG TABS 0893721 AZITHROMYCIN Inac tive PREDNISONE 20 MG TAB 2 tabs daily for 3 days, 1 t ab daily for 3 days, 1/2 tab daily for 2 days PREDNISONE 20 MG TAB 010788 PREDNISON E Inactive AZITHROMYCIN 250 MG TABS 2 po qd x 1 day, then 1 po qd x 4 days AZITHROMYCIN 250 MG TABS 2126040 AZITHROMYCIN Inactiv e PREDNISONE 20 MG TAB 2 tabs daily for 3 days, 1 t ab daily for 3 days, 1/2 tab daily for 2 days PREDNISONE 20 MG TAB 783406 PREDNISON E Inactive Vital Signs Date Name Value Unit Range Description blood pressure, diastolic 71 mm[Hg] BP mathew blood pressure, systolic 109 mm[Hg] BP sys pulse rate E&M 75 /min Heart rate temperature E&M 98.6 [degF] Body temp erature weight E&M 106.44 [lb_av] Weight Measure d blood pressure, diastolic 82 mm[Hg] BP mathew blood pressure, systolic 114 mm[Hg] BP sys height E&M 63.5 [in_us] Bdy height pulse rate E&M 61 /min Heart rate temperature E&M 96.7 [degF] Body temp erature weight E&M 115 [lb_av] Weight Measure d blood pressure, diastolic 81 mm[Hg] BP mathew blood pressure, systolic 117 mm[Hg] BP sys height E&M 63.5 [in_us] Bdy height pulse rate E&M 57 /min Heart rate temperature E&M 96.8 [degF] Body temp erature weight E&M 116.06 [lb_av] Weight Measure d blood pressure, diastolic 75 mm[Hg] BP mathew blood pressure, systolic 105 mm[Hg] BP sys temperature E&M 97.9 [degF] Body temp erature weight E&M 113 [lb_av] Weight Measure d blood pressure, diastolic 77 mm[Hg] BP mathew blood pressure, systolic 114 mm[Hg] BP sys height E&M 63.5 [in_us] Bdy height pulse rate E&M 78 /min Heart rate temperature E&M 97.8 [degF] Body temp erature weight E&M 113 [lb_av] Weight Measure d blood pressure, diastolic 83 mm[Hg] BP mathew blood pressure, systolic 114 mm[Hg] BP sys height E&M 63.5 [in_us] Bdy height pulse rate E&M 76 /min Heart rate respiratory rate E&M 18 /min Resp rate temperature E&M 97.8 [degF] Body temp erature weight E&M 111 [lb_av] Weight Measure d blood pressure, diastolic 79 mm[Hg] BP mathew blood pressure, systolic 113 mm[Hg] BP sys height E&M 63.5 [in_us] Bdy height pulse rate E&M 73 /min Heart rate temperature E&M 97.9 [degF] Body temp erature weight E&M 116.59 [lb_av] Weight Measure d Diagnostic Results Date Name Value Unit Range Description Lab Report: HGBA1C, CBC W/DIFF, Comp. Me tabolic Panel, Lipid Panel - Chemistry sodium, serum 139 mmol/L 057-007 4289/01/09 potassium, serum 4.3 mmol/L 3.5-5.2 chloride, serum [...] 1.10 mg/dL 0.00-1.00 cholesterol, serum 222 mg/dL 333-481 1144/01/09 triglyceride, serum, fasting 92 mg/dL 30-200 HDL cholesterol, serum 41 mg/dL 32-96 LDL cholesterol, serum 163 mg/dL 0-130 hemoglobin A1C, blood, as % of total hemoglobin 5.3 % 4.3-6.0 Lab Report: HGBA1C, CBC W/DIFF, Comp. Me [...] 142-424 Encounters Code Encounter Date Provider Facility CPT-82144 Level 3 Est. Patient 17:08:31 CDT Checo Conklin MD [facility] CPT-70236 Level 3 Est. Patient 16:50:42 ANTENNA SPECIALIST Checo Conklin MD [facility] CPT-72750 Level 4 Est. Patient 09:26:08 ANTENNA SPECIALIST Checo Conklin MD [facility] CPT-26244 Level 3 Est. Patient 11:37:10 CDT Checo Conklin MD [facility] CPT-85787 Level 4 Est. Patient 14:07:38 CDT Checo Conklin MD [facility] CPT-51501 Level 3 Est. Patient 09:54:41 CDT Checo Conklin MD [facility] CPT-37401 Level 3 Est. Patient 11:10:54 CDT Paul Hamlin MD [facility] CPT-92101 Level 3 Est. Patient 14:16:56 ANTENNA SPECIALIST Checo Conklin MD [facility] CPT-02164 Level 3 Est. Patient 11:04:11 ANTENNA SPECIALIST Checo Conklin MD [facility] CPT-75313 Level 3 Est. Patient 17:09:26 CDT Dangelo arroyo MD [facility] CPT-03430 Level 3 Est. Patient 16:54:37 CDT Checo Conklin MD [facility] Procedures Code Procedure Name Date Entry Date Standard Desc ription CPT-J2550 Phenergan 25 mg (Promethazine) 13:59:02 ANTENNA SPECIALIST CPT-J1885 Toradol 60 mg (Ketorolac) 13:59:02 ANTENNA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
--- OUTSIDE RECORDS SUMMARY | 2019-09-29 02:29 | XMS REPORT | Clinical Summary ---
Author Author Admin, Bethany [facility] Address Unknown Phone Unavailable Allergies, Adverse [...] vulvovaginitis, unspecified Pharyngitis 462 Active Jillina Frazell MD OPHTHALMOLOGIST Acute pharyngitis Cough 786.2 Active Jillina Frasandra MD OPHTHALMOLOGIST Cough Pedal edema 782.3 Active Jillina Lizy MD OPHTHALMOLOGIST Edema BREAST CANCER ICD-V16.3 Inactive Checo Joshua [...] 1 tab by mouth twice daily TRIMETHOPRIM-SULFAMETHOXAZOLE 57288464262 Active Jillina Frazell MD OPHTHALMOLOGIST Active DIFLUCAN 150 MG TAB 1 tablet by mouth qod FLUCO NAZOLE 23200146282 No Longer Active Jillina Frazell MD OPHTHALMOLOGIST Active CLARITIN 10 MG TAB 1 tablet by mouth daily as needed for allergies LORATADINE 74267393920 Active Efren Medel MD OPHTHALMOLOGIST Active AZITHROMYCIN 250 MG TABS 2 po qd x 1 day, then 1 po qd x 4 days AZITHROMYCIN 27809432174 No Longer Active Efren Medel MD OPHTHALMOLOGIST Active FLAGYL 500 MG TAB 1 tablet by mouth bid METRONI DAZOLE 39733524207 No Longer Active Checo Conklin MD Active FOCALIN XR 10 MG ORAL [id number] 1 po q a.m. DEX METHYLPHENIDATE HCL 42600764344 Active Checo Conklin MD Active MAGNESIUM CITRATE 1.745 GM/30ML ORAL SOLN 150ml po BID PRN C onstipation MAGNESIUM CITRATE 05673363404 No Longer Active Checo Conklin MD Active BACTROBAN 2 % CREAM Apply to affected area BID for up to 10 days MUPIROCIN CALCIUM 09822522572 No Longer Active Checo Conklin MD Active HYDROCODONE-ACETAMINOPHEN 5-325 MG TABS 1 tab by mouth every 6 hours as needed HYDROCODONE-ACETAMINOPHEN 22620473856 No Longer Activ e Checo Conklin MD Active IBUPROFEN 800 MG TABS 1 tab every 8 hours with food 20 31/03/21 IBUPROFEN 17605277129 No Longer Active Checo Conklin MD Activ e DIFLUCAN 150 MG TAB 1 tablet by mouth if needed, hold until symptoms start FLUCONAZOLE 70364132634 No Longer Active Checo Ortiz MD Active BACTRIM DS 800-160 MG TAB 1 tab by mouth twice daily 2 TRIMETHOPRIM-SULFAMETHOXAZOLE 20159268557 No Longer Active Corry leong LPN Active MIRALAX PACK 1 po qd PRN Constipation POLYETHYL JOEL GLYCOL 3350 88397250512 Active Checo Conklin MD Active HYDROCODONE-ACETAMINOPHEN 5-325 MG TABS 0.5 to 1 tab b y mouth every 6 hours as needed HYDROCODONE-ACETAMINOPHEN 15537940708 No Longer Active Checo Conklin MD Active ONDANSETRON [address] one tablet on tongue and allow to dissolve every 6 hours as needed for vomitting ONDANSETRO N 46672624278 No Longer Active Checo Conklin MD Active COMPRO 25 MG RECTAL SUPP insert or apply one supposit ory rectally as directed every 12 hours as needed for nausea PROCHLORPERA ZINE 51051342978 No Longer Active Checo Conklin MD Active SUMATRIPTAN SUCCINATE 100 MG ORAL TABS Take one PRN for migrane SUMATRIPTAN SUCCINATE 96097667304 No Longer Active Checo Conklin MD Active TRAVEL SICKNESS 25 MG ORAL CHEW chew and swallow one t ablet every 6 hours as needed MECLIZINE HCL 04854609018 No Longer Active Joe Conklin MD Active BUPROPION HCL ER (SR) 100 MG ORAL [id number] take one t ablet by mouth one time daily for one week then take 1 two times daily BUPROPION HCL 03555165044 No Longer Active Checo Conklin MD Activ e TERBINAFINE HCL 250 MG ORAL TABS take one table PO one time abran y TERBINAFINE HCL 71639944693 No Longer Active Checo Conklin MD Active METOCLOPRAMIDE HCL 10 MG ORAL TABS take one PO tid PRN nausea 20 29/12/14 METOCLOPRAMIDE HCL 81104277525 No Longer Active Checo Conklin MD Active DICLOFENAC SODIUM 75 MG TBEC 1 tablet by mouth twice daily P RN Knee pain DICLOFENAC SODIUM 23563245940 No Longer Active Checo Conklin MD Active LAMISIL 250 MG TAB 1 po qd TERBINAFINE HCL 548 09146209 No Longer Active Checo Conklin MD Active REGLAN 10 MG TAB 1 po TID PRN Nausea METOCLOPRA MIDE HCL 59789064394 No Longer Active Checo Conklin MD Active CELEXA 20 MG TABS 1 tablet by mouth daily CITALOPRAM HYDROBROMIDE 76010193662 No Longer Active Checo Conklin MD Activ e AZITHROMYCIN 250 MG TABS 2 po qd x 1 day, then 1 po qd x 4 days AZITHROMYCIN 74783906023 No Longer Active Checo Conklin MD Active HYDROCODONE-ACETAMINOPHEN 5-325 MG TABS 1 po q 6hr PRN Pain 2013 HYDROCODONE-ACETAMINOPHEN 50568340453 No Longer Active Lenora Conklin MD Active PHENAZOPYRIDINE HCL 200 MG TABS take 1 tab po TID for bladder pa in PHENAZOPYRIDINE HCL 91367070323 No Longer Active Checo Joshua Active CIPRO 500 MG TAB 1 tablet by mouth twice daily CIPROFLOXACIN HCL 46333225184 No Longer Active Dangelo Rangel MD Active HYDROCODONE-ACETAMINOPHEN 5-325 MG TABS 1/2 to 1 po q 4 hour s prn cough HYDROCODONE-ACETAMINOPHEN 81031409331 No Longer Activ e Dangelo Rangel MD Active BACTRIM DS 800-160 MG TABS 1 po BID x 7 days 0 SULFAMETHOXAZOLE-TRIMETHOPRIM 08735810865 No Longer Active Checo Conklin MD Active PREDNISONE 20 MG TAB 2 tabs daily for 3 days, 1 t ab daily for 3 days, 1/2 tab daily for 2 days PREDNISONE 14574249292 No Longer Active Checo Conklin MD Active TRIAMCINOLONE ACETONIDE 0.1 % OINT Apply to affected a reas TID for up to 2 weeks TRIAMCINOLONE ACETONIDE 01809682184 No Longer A ctive Checo Conklin MD Active CEFDINIR 300 MG CAPS by mouth twice a day CEFDI JAZZY 93302098261 No Longer Active Dangelo Rangel MD Active BUPROPION HCL (SMOKING DETER) 150 MG [id number] 1 a day for 1 week then 1 twice a day BUPROPION HCL (SMOKING DETER) 27293324155 No Lo nger Active Checo Conklin MD Active SIMVASTATIN 20 MG TABS 1 po qd SIMVASTATIN 5068205901 5 Active Checo Conklin MD Active CHANTIX STARTING MONTH KARTHIK 0.5 MG X 11 & 1 MG X 42 TAB S 0.5mg daily for 3 days, then 0.5mg BID for 4 days, then 1mg BID VARENICLINE TARTRATE 70622495053 No Longer Active Checo Conklin MD Activ e XANAX 0.5 MG TABS 1 po BID PRN anxiety ALPRAZOLAM 90634163488 Active Checo Conklin MD Active CONCERTA 18 MG CR-TABS 1 po q a.m. METHYLPHENID ATE HCL 06698845340 No Longer Active Checo Conklin MD Active AMBIEN 5 MG TAB 1 po qHS PRN Insomnia ZOLPIDEM TARTRATE 55343045013 Active Checo Conklin MD Active TRAZODONE HCL 100 MG TAB 0.5 to 1 po qHS PRN Insomnia TRAZODONE HCL 91345535514 No Longer Active Checo Conklin MD Acti ve FIORICET 325-50-40 MG TAB 1 tablet by mouth four times daily as needed [id number] 24681019096 No Longer Active Checo Conklin MD Active PHENERGAN CREAM* 25mg applied to wrist q6hr PRN Nausea PHENERGAN CREAM* No Longer Active Checo Conklin MD A ctive FLONASE 50 MCG/ACT SUSP 1 spray each nostril am and hs FLUTICASONE PROPIONATE 00870564228 No Longer Active Checo Conklin MD Activ e ANTIPYRINE-BENZOCAINE 5.4-1.4 % SOLN 1-2 drops in affected ear BENZOCAINE-ANTIPYRINE 04546077642 No Longer Active Checo Conklin MD Active CEFDINIR 300 MG CAPS 1 po bid CEFDINIR 66527788 120 No Longer Active Checo Conklin MD Active PREDNISONE 20 MG TAB 2 tabs daily for 3 days, 1 t ab daily for 3 days, 1/2 tab daily for 2 days PREDNISONE 74984612363 No Longer Active Aracelis Conklin MD Active AZITHROMYCIN 250 MG TABS 2 po qd x 1 day, then 1 po qd x 4 days AZITHROMYCIN 73720208812 No Longer Active Checo Conklin MD Active PREDNISONE 20 MG TAB 2 tabs daily for 3 days, 1 t ab daily for 3 days, 1/2 tab daily for 2 days PREDNISONE 19648881624 No Longer Active Checo Conklin MD Active ZITHROMAX Z-KARTHIK 250 MG TABS 2 today, then 1 daily for 4 days 201 09/18/28 AZITHROMYCIN 25595702042 No Longer Active Paul Hamlin MD Active FOCALIN XR 10 MG [id number] 1 po q a.m. D EXMETHYLPHENIDATE HCL 00327052291 No Longer Active Paul Hamlin MD Activ e PERCOCET 10-325 MG TABS 1 tablet every 6 hours as needed for pain OXYCODONE-ACETAMINOPHEN 55279716736 No Longer Active Paul Hamlin MD Active LORTAB 5 5-500 MG TABS 1/2 to 1 tablet by mouth flaquito ry 4 hours as needed for pain HYDROCODONE-ACETAMINOPHEN 06782696497 No Longer Active Checo Conklin MD Active FOCALIN XR 15 MG [id number] 1 po q a.m. D EXMETHYLPHENIDATE HCL 14648801680 No Longer Active Checo Conklin MD Activ e ZOFRAN ODT 4 MG TBDP 1 po q6hr PRN Nausea ONDAN SETRON 23348108481 No Longer Active Checo Conklin MD Active PERCOCET 5-325 MG TABS 1 tablet by mouth every 6 hours as needed OXYCODONE-ACETAMINOPHEN 57819980896 No Longer Active Checo Conklin MD Active PYRIDIUM 200 MG TABS take 1 tab po TID prn urinary pain. 0 PHENAZOPYRIDINE HCL 63901858332 No Longer Active Checo Conklin MD Active FLUCONAZOLE 150 MG TABS take 1 tab po qday once 04/06 FLUCONAZOLE 19192649041 No Longer Active Dangelo Rangel MD Acti ve CIPRO 500 MG TAB 1 tablet by mouth twice daily CIPROFLOXACIN HCL 90880918227 No Longer Active Dangelo Rangel MD Active PYRIDIUM 200 MG TABS take 1 tab po TID prn urinary pain. 0 PYRIDIUM 200 MG TABS 5326799 PHENAZOPYRIDINE HCL Inactive PERCOCET 5-325 MG TABS 1 tablet by mouth every 6 hours as needed PERCOCET 5-325 MG TABS 3636702 OXYCODONE-ACETAMINOPHEN I nactive ZOFRAN ODT 4 MG TBDP 1 po q6hr PRN Nausea ZOFRAN ODT 4 MG TBDP 786039 ONDANSETRON Inactive FOCALIN XR 15 MG [id number] 1 po q a.m. F OCALIN XR 15 MG [id number] DEXMETHYLPHENIDATE HCL Inactive LORTAB 5 5-500 MG TABS 1/2 to 1 tablet by mouth flaquito ry 4 hours as needed for pain LORTAB 5 5-500 MG TABS HYDROCODONE-A CETAMINOPHEN Inactive PERCOCET 10-325 MG TABS 1 tablet every 6 hours as needed for pain PERCOCET 10-325 MG TABS 9279214 OXYCODONE-ACETAMINOPHEN Inactive FOCALIN XR 10 MG [id number] 1 po q a.m. F OCALIN XR 10 MG [id number] DEXMETHYLPHENIDATE HCL Inactive CEFDINIR 300 MG CAPS 1 po bid CEFDINIR 300 MG CAPS 20 0346 CEFDINIR Inactive ANTIPYRINE-BENZOCAINE 5.4-1.4 % SOLN 1-2 drops in affected ear ANTIPYRINE-BENZOCAINE 5.4-1.4 % SOLN 480903 BENZOCAINE-ANTIPYRINE I nactive FLONASE 50 MCG/ACT SUSP 1 spray each nostril am and hs FLONASE 50 MCG/ACT SUSP 142684 FLUTICASONE PROPIONATE Inactive PHENERGAN CREAM* 25mg applied to wrist q6hr PRN Nausea PHENERGAN CREAM* Inactive FIORICET 325-50-40 MG TAB 1 tablet by mouth four times daily as needed FIORICET 325-50-40 MG TAB ACETAMINOPHEN-C AFF-BUTALBITAL Inactive TRAZODONE HCL 100 MG TAB 0.5 to 1 po qHS PRN Insomnia TRAZODONE HCL 100 MG TAB 838491 TRAZODONE HCL Inactive CONCERTA 18 MG CR-TABS [...] s prn cough HYDROCODONE-ACETAMINOPHEN 5-325 MG TABS 694939 HYDROCODONE-ACETAMINOPHEN Inactive PHENAZOPYRIDINE HCL 200 MG TABS take 1 tab po TID for bladder pa in PHENAZOPYRIDINE HCL 200 MG TABS 7475661 PHENAZOPYRIDINE HCL Inactive HYDROCODONE-ACETAMINOPHEN 5-325 MG TABS 1 po q 6hr PRN Pain 2013 HYDROCODONE-ACETAMINOPHEN 5-325 MG TABS 260997 HYDROCODONE-ACETAMINOPHEN Inactive CELEXA 20 MG TABS 1 tablet by mouth daily CELEXA 20 MG TABS 796740 CITALOPRAM HYDROBROMIDE Inactive REGLAN 10 MG TAB 1 po TID PRN Nausea REGLAN 10 MG TAB 112611 METOCLOPRAMIDE HCL Inactive LAMISIL 250 MG TAB 1 po qd LAMISIL 250 MG TAB 654225 TERBINAFINE HCL Inactive DICLOFENAC SODIUM 75 MG TBEC 1 tablet by mouth twice daily P RN Knee pain DICLOFENAC SODIUM 75 MG TBEC 680721 DICLOFENAC S ODIUM Inactive METOCLOPRAMIDE HCL 10 MG ORAL TABS take one PO tid PRN nausea 20 29/12/14 METOCLOPRAMIDE HCL 10 MG ORAL TABS 860482 METOCLOPRAMID E HCL Inactive TERBINAFINE HCL 250 MG ORAL TABS take one table PO one time abran y TERBINAFINE HCL 250 MG ORAL TABS 096620 TERBINAFINE HCL Inactive BUPROPION HCL ER (SR) 100 MG ORAL [id number] take one t ablet by mouth one time daily for one week then take 1 two times daily BUPROPION HCL ER (SR) 100 MG ORAL [id number] BUPROPION HCL Inacti ve TRAVEL SICKNESS 25 MG ORAL CHEW chew and swallow one t ablet every 6 hours as needed TRAVEL SICKNESS 25 MG ORAL CHEW 323760 MECLIZINE HCL Inactive SUMATRIPTAN SUCCINATE 100 MG ORAL TABS Take one PRN for migrane SUMATRIPTAN SUCCINATE 100 MG ORAL TABS 723434 SUMATRIPT AN SUCCINATE Inactive COMPRO 25 MG RECTAL SUPP insert or apply one supposit ory rectally as directed every 12 hours as needed for nausea COMP RO 25 MG RECTAL SUPP 318926 PROCHLORPERAZINE Inactive ONDANSETRON [address] one tablet on tongue and allow to dissolve every 6 hours as needed for vomitting ON DANSETRON 8 MG ORAL TBDP 831410 ONDANSETRON Inactive HYDROCODONE-ACETAMINOPHEN 5-325 MG TABS 0.5 to 1 tab b y mouth every 6 hours as needed HYDROCODONE-ACETAMINOPHEN 5-325 MG TABS 8 68832 HYDROCODONE-ACETAMINOPHEN Inactive BACTRIM DS 800-160 MG TAB 1 tab by mouth twice daily 2 BACTRIM DS 800-160 MG TAB 716508 TRIMETHOPRIM-SULFAMETHOXAZOLE Inac tive DIFLUCAN 150 MG TAB 1 tablet by mouth if needed, hold until symptoms start DIFLUCAN 150 MG TAB 424779 FLUCONAZOLE Inactive IBUPROFEN 800 MG TABS 1 tab every 8 hours with food 31/03/21 IBUPROFEN 800 MG TABS 125191 IBUPROFEN Inactive HYDROCODONE-ACETAMINOPHEN 5-325 MG TABS 1 tab by mouth every 6 hours as needed HYDROCODONE-ACETAMINOPHEN 5-325 MG TABS 603667 HYDROCODONE-ACETAMINOPHEN Inactive BACTROBAN 2 % CREAM Apply to affected area BID for up to 10 days BACTROBAN 2 % CREAM 669245 MUPIROCIN CALCIUM Inactive MAGNESIUM CITRATE 1.745 GM/30ML ORAL SOLN 150ml po BID PRN C onstipation MAGNESIUM CITRATE 1.745 GM/30ML ORAL SOLN 516332 0 MAGNESIUM CITRATE Inactive DIFLUCAN 150 MG TAB 1 tablet by mouth qod DIFLUCAN 150 MG TAB 166123 FLUCONAZOLE Inactive CIPRO 500 MG TAB 1 tablet by mouth twice daily CIPRO 500 MG TAB 619941 CIPROFLOXACIN HCL Inactive FLUCONAZOLE 150 MG TABS take 1 tab po qday once 04/06 FLUCONAZOLE 150 MG TABS 591388 FLUCONAZOLE Inactive ZITHROMAX Z-KARTHIK 250 MG TABS 2 today, then 1 daily for 4 days 201 09/18/28 ZITHROMAX Z-KARTHIK 250 MG TABS 8963219 AZITHROMYCIN Inac tive PREDNISONE 20 MG TAB 2 tabs daily for 3 days, 1 t ab daily for 3 days, 1/2 tab daily for 2 days PREDNISONE 20 MG TAB 500241 PREDNISON E Inactive AZITHROMYCIN 250 MG TABS 2 po qd x 1 day, then 1 po qd x 4 days AZITHROMYCIN 250 MG TABS 3785481 AZITHROMYCIN Inactiv e PREDNISONE 20 MG TAB 2 tabs daily for 3 days, 1 t ab daily for 3 days, 1/2 tab daily for 2 days PREDNISONE 20 MG TAB 843013 PREDNISON E Inactive CEFDINIR 300 MG CAPS by mouth twice a day CEFDINIR 300 MG CAPS 847828 CEFDINIR Inactive TRIAMCINOLONE ACETONIDE 0.1 % OINT Apply to affected a reas TID for up to 2 weeks TRIAMCINOLONE ACETONIDE 0.1 % OINT 292817 6 TRIAMCINOLONE ACETONIDE Inactive PREDNISONE 20 MG TAB 2 tabs daily for 3 days, 1 t ab daily for 3 days, 1/2 tab daily for 2 days PREDNISONE 20 MG TAB 913345 PREDNISON E Inactive BACTRIM DS 800-160 MG TABS 1 po BID x 7 days 0 BACTRIM DS 800-160 MG TABS 017453 SULFAMETHOXAZOLE-TRIMETHOPRIM Inactive CIPRO 500 MG TAB 1 tablet by mouth twice daily CIPRO 500 MG TAB 532422 CIPROFLOXACIN HCL Inactive AZITHROMYCIN 250 MG TABS 2 po qd x 1 day, then 1 po qd x 4 days AZITHROMYCIN 250 MG TABS 8203219 AZITHROMYCIN Inactiv e FLAGYL 500 MG TAB 1 tablet by mouth bid FLAGYL 500 MG TAB 591289 METRONIDAZOLE Inactive AZITHROMYCIN 250 MG TABS 2 po qd x 1 day, then 1 po qd x 4 days AZITHROMYCIN 250 MG TABS 0202724 AZITHROMYCIN Inactiv e Immunizations Vaccine Administration Date [...] ... - Chemistry sodium, serum 141 mmol/L 720-996 5770/01/26 carbon dioxide, venous blood 30.0 mmol/L 21.0-32 .0 potassium, serum 4.0 mmol/L 3.5-5.2 chloride, serum 105 mmol/L 98-107 blood glucose 85 mg/dL 65-110 urea nitrogen, blood 9 mg/dL 7-18 creatinine, serum 0.66 mg/dL 0.55-1.30 alanine aminotransferase (SGPT), serum 31 U/L 12-78 aspartate aminotransferase (SGOT), serum 21 U/L 15-37 calcium, serum 8.2 mg/dL 8.5-10.1 bilirubin, serum, total 1.10 mg/dL 0.00-1.00 cholesterol, serum 178 mg/dL 440-038 9129/01/26 triglyceride, serum, fasting 149 mg/dL 30-200 HDL [...] ... - Chemistry sodium, serum 137 mmol/L 670-778 6321/05/27 carbon dioxide, venous blood 29.1 mmol/L 21.0-32 [...] 5.0-8.5 Encounters Code Encounter Date Provider Facility CPT-07936 Level 3 Est. Patient 09:15:34 CDT Efren almendarez [facility] CPT-82029 Level 3 Est. Patient 11:28:51 TICKET TAKER Efren almendarez [facility] CPT-59567 Level 4 Est. Patient 13:55:46 TICKET TAKER Checo Conklin MD [facility] CPT-29713 Level 4 Est. Patient 17:10:53 CDT Checo Conklin MD [facility] CPT-46982 Level 3 Est. Patient 15:56:22 CDT Checo Conklin MD [facility] CPT-27622 Level 3 Est. Patient 15:29:07 CDT Checo Conklin MD [facility] CPT-33390 Level 3 Est. Patient 14:38:41 CDT Checo Conklin MD [facility] CPT-94980 Level 3 Est. Patient 15:22:03 TICKET TAKER Thomas reynolds DO [facility] CPT-45842 Level 3 Est. Patient 13:34:17 TICKET TAKER Checo Conklin MD [facility] CPT-07866 Level 3 Est. Patient 12:29:32 CDT Dangelo arroyo MD [facility] CPT-89053 Level 3 Est. Patient 16:53:02 CDT Checo Conklin MD [facility] CPT-24953 Level 3 Est. Patient 16:37:13 CDT Checo Conklin MD [facility] CPT-39152 Level 3 Est. Patient 16:16:59 CDT Paul Hamlin MD [facility] CPT-73680 Level 3 Est. Patient 14:20:13 CDT Dangelo arroyo MD [facility] CPT-95423 Level 4 Est. Patient 11:29:33 CDT Checo Conklin MD [facility] CPT-80051 Level 3 Est. Patient 17:08:31 CDT Checo Conklin MD [facility] CPT-70703 Level 3 Est. Patient 16:50:42 TICKET TAKER Checo Conklin MD [facility] CPT-39455 Level 4 Est. Patient 09:26:08 TICKET TAKER Checo Conklin MD [facility] CPT-00495 Level 3 Est. Patient 11:37:10 CDT Checo Conklin MD [facility] CPT-29793 Level 4 Est. Patient 14:07:38 CDT Checo Conklin MD [facility] CPT-34838 Level 3 Est. Patient 09:54:41 CDT Checo Conklin MD [facility] CPT-25032 Level 3 Est. Patient 11:10:54 CDT Paul Hamlin MD [facility] CPT-62352 Level 3 Est. Patient 14:16:56 TICKET TAKER Checo Conklin MD [facility] CPT-72470 Level 3 Est. Patient 11:04:11 TICKET TAKER Checo Conklin MD [facility] CPT-02356 Level 3 Est. Patient 17:09:26 CDT Dangelo arroyo MD [facility] CPT-84383 Level 3 Est. Patient 16:54:37 CDT Checo Conklin MD [facility] Procedures Code Procedure Name Date Entry Date Standard Desc ription CPT-OV Office Visit 11:31:28 CDT CPT-22399 Tubersol 09:39:29 CDT CPT-J2550 Phenergan 25 mg (Promethazine) 13:59:02 TICKET TAKER CPT-J1885 Toradol 60 mg (Ketorolac) 13:59:02 TICKET TAKER 2012
--- OUTSIDE RECORDS SUMMARY | 2019-09-29 02:29 | XMS REPORT | Clinical Summary ---
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.9 Active Checo Ortiz MD Carbuncle and furuncle of unspecified site FH BREAST CANCER ICD-V16.3 Inactive Checo Joshua [...] Insect bite ICD-919.4 Inactive Checo Conklin MD Medication List Medication Instructions Start Date Stop Date Generic Name NDC Status Provider Patient Instruction HYDROCODONE-ACETAMINOPHEN 5-325 MG TABS 1 po q 6hr PRN Pain HYDROCODONE-ACETAMINOPHEN 33998160484 Active Dangelo Rangel MD Active PHENAZOPYRIDINE HCL 200 MG TABS take 1 tab po TID for bladder pain PHENAZOPYRIDINE HCL 97973305250 Active Dangelo Rangel MD A ctive CIPRO 500 MG TAB 1 tablet by mouth twice daily CIPROFLOXACIN HCL 99852908318 Active Dangelo Rangel MD Act mike HYDROCODONE-ACETAMINOPHEN 5-325 MG TABS 1/2 to 1 po q 4 hour s prn cough HYDROCODONE-ACETAMINOPHEN 13049426243 No Longer Activ e Dangelo Rangel MD Active BACTRIM DS 800-160 MG TABS 1 po BID x 7 days 0 SULFAMETHOXAZOLE-TRIMETHOPRIM 31739679614 No Longer Active Checo Conklin MD Active PREDNISONE 20 MG TAB 2 tabs daily for 3 days, 1 t ab daily for 3 days, 1/2 tab daily for 2 days PREDNISONE 21543188268 No Longer Active Checo Conklin MD Active TRIAMCINOLONE ACETONIDE 0.1 % OINT Apply to affected a reas TID for up to 2 weeks TRIAMCINOLONE ACETONIDE 63319704856 No Longer A ctive Checo Conklin MD Active CEFDINIR 300 MG CAPS by mouth twice a day CEFDI JAZZY 33429141364 No Longer Active Dangelo Rangel MD Active CELEXA 20 MG TABS 1 tablet by mouth daily CITAL OPRAM HYDROBROMIDE 98569095235 Active Checo Conklin MD Active BUPROPION HCL (SMOKING DETER) 150 MG [id number] 1 a day for 1 week then 1 twice a day BUPROPION HCL (SMOKING DETER) 14729248017 No Lo nger Active Checo Conklin MD Active SIMVASTATIN 20 MG TABS 1 po qd SIMVASTATIN 9272684579 4 Active Checo Conklin MD Active CHANTIX STARTING MONTH KARTHIK 0.5 MG X 11 & 1 MG X 42 TAB S 0.5mg daily for 3 days, then 0.5mg BID for 4 days, then 1mg BID VARENICLINE TARTRATE 61915783087 No Longer Active Checo Conklin MD Activ e XANAX 0.5 MG TABS 1 po BID PRN anxiety ALPRAZOLAM 02930178780 Active Checo Conklin MD Active CONCERTA 18 MG CR-TABS 1 po q a.m. METHYLPHENID ATE HCL 44179987101 No Longer Active Checo Conklin MD Active REGLAN 10 MG TAB 1 po TID PRN Nausea METOCLOPRA MIDE HCL 55848291860 Active Checo Conklin MD Active AMBIEN 5 MG TAB 1 po qHS PRN Insomnia ZOLPIDEM TARTRATE 03187979612 Active Checo Conklin MD Active TRAZODONE HCL 100 MG TAB 0.5 to 1 po qHS PRN Insomnia TRAZODONE HCL 86646349351 No Longer Active Checo Conklin MD Acti ve FIORICET 325-50-40 MG TAB 1 tablet by mouth four times daily as needed [id number] 79224111878 No Longer Active Checo Conklin MD Active PHENERGAN CREAM* 25mg applied to wrist q6hr PRN Nausea PHENERGAN CREAM* No Longer Active Checo Conklin MD A ctive LAMISIL 250 MG TAB 1 po qd TERBINAFINE HCL 2452785942 1 Active Checo Conklin MD Active FLONASE 50 MCG/ACT SUSP 1 spray each nostril am and hs FLUTICASONE PROPIONATE 07341425177 No Longer Active Checo Conklin MD Activ e ANTIPYRINE-BENZOCAINE 5.4-1.4 % SOLN 1-2 drops in affected ear BENZOCAINE-ANTIPYRINE 41982522764 No Longer Active Checo Conklin MD Active CEFDINIR 300 MG CAPS 1 po bid CEFDINIR 00682163 120 No Longer Active Checo Conklin MD Active PREDNISONE 20 MG TAB 2 tabs daily for 3 days, 1 t ab daily for 3 days, 1/2 tab daily for 2 days PREDNISONE 03001352142 No Longer Active Aracelis Conklin MD Active AZITHROMYCIN 250 MG TABS 2 po qd x 1 day, then 1 po qd x 4 days AZITHROMYCIN 55384202093 No Longer Active Checo Conklin MD Active PREDNISONE 20 MG TAB 2 tabs daily for 3 days, 1 t ab daily for 3 days, 1/2 tab daily for 2 days PREDNISONE 22078149869 No Longer Active Checo Conklin MD Active ZITHROMAX Z-KARTHIK 250 MG TABS 2 today, then 1 daily for 4 days 201 09/18/28 AZITHROMYCIN 81110298396 No Longer Active Paul Hamlin MD Active FOCALIN XR 10 MG [id number] 1 po q a.m. D EXMETHYLPHENIDATE HCL 00529528298 No Longer Active Paul Hamlin MD Activ e PERCOCET 10-325 MG TABS 1 tablet every 6 hours as needed for pain OXYCODONE-ACETAMINOPHEN 46346533542 No Longer Active Paul Hamlin MD Active LORTAB 5 5-500 MG TABS 1/2 to 1 tablet by mouth flaquito ry 4 hours as needed for pain HYDROCODONE-ACETAMINOPHEN 08794190957 No Longer Active Checo Conklin MD Active FOCALIN XR 15 MG [id number] 1 po q a.m. D EXMETHYLPHENIDATE HCL 96321305863 No Longer Active Checo Conklin MD Activ e ZOFRAN ODT 4 MG TBDP 1 po q6hr PRN Nausea ONDAN SETRON 04112508147 No Longer Active Checo Conklin MD Active PERCOCET 5-325 MG TABS 1 tablet by mouth every 6 hours as needed OXYCODONE-ACETAMINOPHEN 96190237064 No Longer Active Checo Conklin MD Active PYRIDIUM 200 MG TABS take 1 tab po TID prn urinary pain. 0 PHENAZOPYRIDINE HCL 44675454808 No Longer Active Checo Conklin MD Active FLUCONAZOLE 150 MG TABS take 1 tab po qday once 04/06 FLUCONAZOLE 97720715103 No Longer Active Dangelo Rangel MD Acti ve CIPRO 500 MG TAB 1 tablet by mouth twice daily CIPROFLOXACIN HCL 77830736966 No Longer Active Dangelo Rangel MD Active PYRIDIUM 200 MG TABS take 1 tab po TID prn urinary pain. 0 PYRIDIUM 200 MG TABS 9491847 PHENAZOPYRIDINE HCL Inactive PERCOCET 5-325 MG TABS 1 tablet by mouth every 6 hours as needed PERCOCET 5-325 MG TABS 7912143 OXYCODONE-ACETAMINOPHEN I nactive ZOFRAN ODT 4 MG TBDP 1 po q6hr PRN Nausea ZOFRAN ODT 4 MG TBDP 824747 ONDANSETRON Inactive FOCALIN XR 15 MG [id number] 1 po q a.m. F OCALIN XR 15 MG [id number] DEXMETHYLPHENIDATE HCL Inactive LORTAB 5 5-500 MG TABS 1/2 to 1 tablet by mouth flaquito ry 4 hours as needed for pain LORTAB 5 5-500 MG TABS HYDROCODONE-A CETAMINOPHEN Inactive PERCOCET 10-325 MG TABS 1 tablet every 6 hours as needed for pain PERCOCET 10-325 MG TABS 4914835 OXYCODONE-ACETAMINOPHEN Inactive FOCALIN XR 10 MG [id number] 1 po q a.m. F OCALIN XR 10 MG [id number]-SNY DEXMETHYLPHENIDATE HCL Inactive CEFDINIR 300 MG CAPS 1 po bid CEFDINIR 300 MG CAPS 20 0346 CEFDINIR Inactive ANTIPYRINE-BENZOCAINE 5.4-1.4 % SOLN 1-2 drops in affected ear ANTIPYRINE-BENZOCAINE 5.4-1.4 % SOLN 968835 BENZOCAINE-ANTIPYRINE I nactive FLONASE 50 MCG/ACT SUSP 1 spray each nostril am and hs FLONASE 50 MCG/ACT SUSP 090513 FLUTICASONE PROPIONATE Inactive PHENERGAN CREAM* 25mg applied to wrist q6hr PRN Nausea PHENERGAN CREAM* Inactive FIORICET 325-50-40 MG TAB 1 tablet by mouth four times daily as needed FIORICET 325-50-40 MG TAB ACETAMINOPHEN-C AFF-BUTALBITAL Inactive TRAZODONE HCL 100 MG TAB 0.5 to 1 po qHS PRN Insomnia TRAZODONE HCL 100 MG TAB 103600 TRAZODONE HCL Inactive CONCERTA 18 MG CR-TABS [...] s prn cough HYDROCODONE-ACETAMINOPHEN 5-325 MG TABS 093350 HYDROCODONE-ACETAMINOPHEN Inactive CIPRO 500 MG TAB 1 tablet by mouth twice daily CIPRO 500 MG TAB 542012 CIPROFLOXACIN HCL Inactive FLUCONAZOLE 150 MG TABS take 1 tab po qday once 04/06 FLUCONAZOLE 150 MG TABS 426041 FLUCONAZOLE Inactive ZITHROMAX Z-KARTHIK 250 MG TABS 2 today, then 1 daily for 4 days 201 09/18/28 ZITHROMAX Z-KARTHIK 250 MG TABS 8559007 AZITHROMYCIN Inac tive PREDNISONE 20 MG TAB 2 tabs daily for 3 days, 1 t ab daily for 3 days, 1/2 tab daily for 2 days PREDNISONE 20 MG TAB 613581 PREDNISON E Inactive AZITHROMYCIN 250 MG TABS 2 po qd x 1 day, then 1 po qd x 4 days AZITHROMYCIN 250 MG TABS 9943033 AZITHROMYCIN Inactiv e PREDNISONE 20 MG TAB 2 tabs daily for 3 days, 1 t ab daily for 3 days, 1/2 tab daily for 2 days PREDNISONE 20 MG TAB 257056 PREDNISON E Inactive CEFDINIR 300 MG CAPS by mouth twice a day CEFDINIR 300 MG CAPS 103363 CEFDINIR Inactive TRIAMCINOLONE ACETONIDE 0.1 % OINT Apply to affected a reas TID for up to 2 weeks TRIAMCINOLONE ACETONIDE 0.1 % OINT 505852 6 TRIAMCINOLONE ACETONIDE Inactive PREDNISONE 20 MG TAB 2 tabs daily for 3 days, 1 t ab daily for 3 days, 1/2 tab daily for 2 days PREDNISONE 20 MG TAB 764908 PREDNISON E Inactive BACTRIM DS 800-160 MG TABS 1 po BID x 7 days 0 BACTRIM DS 800-160 MG TABS SULFAMETHOXAZOLE-TRIMETHOPRIM Inactive Immunizations Vaccine Administration Date Value Standard Michael cription TB PPD (tuberculin purified protein derivative), intra dermal administration Tubersol Vital Signs Date Name Value Unit Range Description blood pressure, diastolic 82 mm[Hg] BP mathew blood pressure, systolic 117 mm[Hg] BP sys pulse rate E&M 84 /min Heart rate temperature E&M 97.3 [degF] Body temp erature weight E&M 120 [lb_av] Weight Measure d blood pressure, diastolic 76 mm[Hg] BP mathew blood pressure, systolic 123 mm[Hg] BP sys height E&M 63.5 [in_us] Bdy height pulse rate E&M 73 /min Heart rate temperature E&M 98.4 [degF] Body temp erature weight E&M 119.13 [lb_av] Weight Measure d blood pressure, diastolic 74 mm[Hg] BP mathew blood pressure, systolic 109 mm[Hg] BP sys pulse rate E&M 69 /min Heart rate temperature E&M 96.8 [degF] Body temp erature weight E&M 116 [lb_av] Weight Measure d blood pressure, diastolic 77 mm[Hg] BP mathew blood pressure, systolic 115 mm[Hg] BP sys pulse rate E&M 76 /min Heart rate temperature E&M 98.8 [degF] Body temp erature weight E&M 115 [lb_av] Weight Measure d blood pressure, diastolic 72 mm[Hg] BP mathew blood pressure, systolic 110 mm[Hg] BP sys height E&M 63.5 [in_us] Bdy height pulse rate E&M 72 /min Heart rate temperature E&M 97.5 [degF] Body temp erature weight E&M 114 [lb_av] Weight Measure d blood pressure, diastolic 83 mm[Hg] BP mathew blood pressure, systolic 115 mm[Hg] BP sys pulse rate E&M 78 /min Heart rate temperature E&M 98.0 [degF] Body temp erature weight E&M 112 [lb_av] Weight Measure d blood pressure, diastolic 71 mm[Hg] BP mathew [...] weight E&M 116.06 [lb_av] Weight Measure d Diagnostic Results Date Name Value Unit Range Description Immunizations: Immunization Administrati on - Challenge tests PPD results in mm < 5mm mm Lab Report: Comp. Metabolic Panel, Lipid Panel - Chemistry creatinine, serum 0.70 mg/dL 0.60-1.30 alanine aminotransferase (SGPT), serum 12 U/L 12-78 aspartate aminotransferase (SGOT), serum 14 U/L 15-37 alkaline phosphatase, serum 64 U/L 50-136 calcium, serum 8.6 mg/dL 8.5-10.1 bilirubin, serum, total 0.80 mg/dL 0.00-1.00 cholesterol, serum 147 mg/dL 142-727 3449/10/24 triglyceride, serum, fasting 112 mg/dL 30-200 HDL cholesterol, serum 40 mg/dL 32-96 LDL cholesterol, serum 85 mg/dL 0-130 sodium, serum 139 mmol/L 291-495 6882/10/24 potassium, serum 4.1 mmol/L 3.5-5.2 chloride, serum 102 mmol/L 98-107 carbon dioxide, venous blood 30.9 mmol/L 21.0-32 .0 blood glucose 78 mg/dL 65-110 urea nitrogen, blood 11 mg/dL 7-18 Lab Report: HGBA1C, CBC W/DIFF, Comp. Me tabolic Panel, Lipid Panel - Chemistry sodium, serum 139 mmol/L 811-955 7978/01/09 potassium, serum 4.3 mmol/L 3.5-5.2 chloride, serum [...] 1.10 mg/dL 0.00-1.00 cholesterol, serum 222 mg/dL 828-343 3412/01/09 triglyceride, serum, fasting 92 mg/dL 30-200 HDL cholesterol, serum 41 mg/dL 32-96 LDL cholesterol, serum 163 mg/dL 0-130 hemoglobin A1C, blood, as % of total hemoglobin 5.3 % 4.3-6.0 Lab Report: HGBA1C, CBC W/DIFF, Comp. Me tabolic Panel, Lipid Panel - Hematology lymphocytes as percent of blood leukocytes 37.5 % 20.5-51.1 monocytes as percent of blood leukocytes 8.7 % 1.7-9.3 neutrophils as percent of blood leukocytes 51.6 % 42.2-75.2 leukocyte count, blood 5.5 10^3/MM^3 10*3/mm3 4.6-10.2 erythrocyte (RBC) count 4.35 10^6/MM^3 10*6/mm3 4.04-5.4 8 hemoglobin, blood 14.5 g/dL 12.0-16.0 hematocrit, blood 43.3 % 36.0-46.0 mean corpuscular volume, RBC 100 fL 80-97 mean corpuscular hemoglobin, RBC 33.2 pg 27. 0-31.2 mean corpuscular hemoglobin concentration, RBC 33.4 G/DL % 31.8-35.4 red blood cell distribution width 13.1 % 11 .6-14.8 platelet count 179 10^3/MM^3 10*3/mm3 142-424 Lab Report: UADIP W/MICRO, AUTO - Urinal ysis urine color Unable to read macroscopic due t o interfering substance Colorless;Lightyellow;Straw;Yellow appearance, urine red-orange clear Clear Encounters Code Encounter Date Provider Facility CPT-31510 Level 3 Est. Patient 12:29:32 CDT Dangelo arroyo MD [facility] CPT-16544 Level 3 Est. Patient 16:53:02 CDT Checo Conklin MD [facility] CPT-25357 Level 3 Est. Patient 16:37:13 CDT Checo Conklin MD [facility] CPT-03102 Level 3 Est. Patient 16:16:59 CDT Paul Hamlin MD [facility] CPT-30592 Level 3 Est. Patient 14:20:13 CDT Dangelo arroyo MD [facility] CPT-26656 Level 4 Est. Patient 11:29:33 CDT Checo Conklin MD [facility] CPT-56145 Level 3 Est. Patient 17:08:31 CDT Checo Conklin MD [facility] CPT-18003 Level 3 Est. Patient 16:50:42 SHOE IRONER Checo Conklin MD [facility] CPT-07575 Level 4 Est. Patient 09:26:08 SHOE IRONER Checo Conklin MD [facility] CPT-44465 Level 3 Est. Patient 11:37:10 CDT Checo Conklin MD [facility] CPT-66369 Level 4 Est. Patient 14:07:38 CDT Checo Conklin MD [facility] CPT-95922 Level 3 Est. Patient 09:54:41 CDT Checo Conklin MD [facility] CPT-57249 Level 3 Est. Patient 11:10:54 CDT Paul Hamlin MD [facility] CPT-85324 Level 3 Est. Patient 14:16:56 SHOE IRONER Checo Conklin MD [facility] CPT-53409 Level 3 Est. Patient 11:04:11 SHOE IRONER Checo Conklin MD [facility] CPT-30097 Level 3 Est. Patient 17:09:26 CDT Dangelo arroyo MD [facility] CPT-90114 Level 3 Est. Patient 16:54:37 CDT Checo Conklin MD [facility] Procedures Code Procedure Name Date Entry Date Standard Desc ription CPT-OV Office Visit 11:31:28 CDT CPT-03960 Tubersol 09:39:29 CDT CPT-J2550 Phenergan 25 mg (Promethazine) 13:59:02 SHOE IRONER CPT-J1885 Toradol 60 mg (Ketorolac) 13:59:02 SHOE IRONER 2012
--- OUTSIDE RECORDS SUMMARY | 2019-09-29 02:29 | XMS REPORT | Clinical Summary ---
Author Author Admin, Bethany Ayala [facility] Address Unknown Phone Unavailable Allergies, [...] MD Acute pharyngitis TOBACCO ABUSE 305.1 Active Pual Hamlin MD Tobacco use disorder HEALTH SCREENING [...] Mastalgia 611.71 Active Vicky Dozier MD Mastodynia Sinusitis 461.9 Active Dangelo Rangel MD Acute sinusitis, unspecified FH BREAST CANCER [...] Provider Patient Instruction HYDROCODONE-ACETAMINOPHEN 5-325 MG TABS 1/2 to 1 po q 4 hour s prn cough HYDROCODONE-ACETAMINOPHEN 62704152009 Active Paul montgomery MD Active CEFDINIR 300 MG CAPS by mouth twice a day CEFDI JAZZY 83056868299 Active Dangelo Rangel MD Active CELEXA 20 MG TABS 1 tablet by mouth daily CITAL OPRAM HYDROBROMIDE 98150344077 Active Checo Conklin MD Active BUPROPION HCL (SMOKING DETER) 150 MG [id number]-HJD 1 a day for 1 week then 1 twice a day BUPROPION HCL (SMOKING DETER) 25631931224 No Lo nger Active Checo Conklin MD Active SIMVASTATIN 20 MG TABS 1 po qd SIMVASTATIN 5374786519 4 Active Checo Conklin MD Active CHANTIX STARTING MONTH KARTHIK 0.5 MG X 11 & 1 MG X 42 TAB S 0.5mg daily for 3 days, then 0.5mg BID for 4 days, then 1mg BID VARENICLINE TARTRATE 19941650844 No Longer Active Checo Conklin MD Activ e XANAX 0.5 MG TABS 1 po BID PRN anxiety ALPRAZOLAM 25225301554 Active Checo Conklin MD Active CONCERTA 18 MG CR-TABS 1 po q a.m. METHYLPHENID ATE HCL 26810474041 No Longer Active Checo Conklin MD Active REGLAN 10 MG TAB 1 po TID PRN Nausea METOCLOPRA MIDE HCL 00775556166 Active Checo Conklin MD Active AMBIEN 5 MG TAB 1 po qHS PRN Insomnia ZOLPIDEM TARTRATE 51546043091 Active Checo Conklin MD Active TRAZODONE HCL 100 MG TAB 0.5 to 1 po qHS PRN Insomnia TRAZODONE HCL 56968888642 No Longer Active Checo Conklin MD Acti ve FIORICET 325-50-40 MG TAB 1 tablet by mouth four times daily as needed [id number] 89206602568 No Longer Active Checo Conklin MD Active PHENERGAN CREAM* 25mg applied to wrist q6hr PRN Nausea PHENERGAN CREAM* No Longer Active Checo Conklin MD A ctive LAMISIL 250 MG TAB 1 po qd TERBINAFINE HCL 5310831753 1 Active Checo Conklin MD Active FLONASE 50 MCG/ACT SUSP 1 spray each nostril am and hs FLUTICASONE PROPIONATE 16192126531 No Longer Active Checo Conklin MD Activ e ANTIPYRINE-BENZOCAINE 5.4-1.4 % SOLN 1-2 drops in affected ear BENZOCAINE-ANTIPYRINE 07406890384 No Longer Active Checo Conklin MD Active CEFDINIR 300 MG CAPS 1 po bid CEFDINIR 05682637 120 No Longer Active Checo Conklin MD Active PREDNISONE 20 MG TAB 2 tabs daily for 3 days, 1 t ab daily for 3 days, 1/2 tab daily for 2 days PREDNISONE 56123041372 No Longer Active Aracelis Conklin MD Active AZITHROMYCIN 250 MG TABS 2 po qd x 1 day, then 1 po qd x 4 days AZITHROMYCIN 30150391220 No Longer Active Checo Conklin MD Active PREDNISONE 20 MG TAB 2 tabs daily for 3 days, 1 t ab daily for 3 days, 1/2 tab daily for 2 days PREDNISONE 91497612530 No Longer Active Checo Conklin MD Active ZITHROMAX Z-KARTHIK 250 MG TABS 2 today, then 1 daily for 4 days 201 09/18/28 AZITHROMYCIN 56208252961 No Longer Active Paul Hamlin MD Active FOCALIN XR 10 MG [id number] 1 po q a.m. D EXMETHYLPHENIDATE HCL 14938890431 No Longer Active Paul Hamlin MD Activ e PERCOCET 10-325 MG TABS 1 tablet every 6 hours as needed for pain OXYCODONE-ACETAMINOPHEN 36395330660 No Longer Active Paul Hamlin MD Active LORTAB 5 5-500 MG TABS 1/2 to 1 tablet by mouth flaquito ry 4 hours as needed for pain HYDROCODONE-ACETAMINOPHEN 22816371104 No Longer Active Checo Conklin MD Active FOCALIN XR 15 MG MU68A-HCZ 1 po q a.m. D EXMETHYLPHENIDATE HCL 70907003957 No Longer Active Checo Conklin MD Activ e ZOFRAN ODT 4 MG TBDP 1 po q6hr PRN Nausea ONDAN SETRON 45225617847 No Longer Active Checo Conklin MD Active PERCOCET 5-325 MG TABS 1 tablet by mouth every 6 hours as needed OXYCODONE-ACETAMINOPHEN 53536542127 No Longer Active Checo Conklin MD Active PYRIDIUM 200 MG TABS take 1 tab po TID prn urinary pain. PHENAZOPYRIDINE HCL 55385791873 No Longer Active Checo Conklin MD Active FLUCONAZOLE 150 MG TABS take 1 tab po qday once 04/06 FLUCONAZOLE 36986372034 No Longer Active Dangelo Rangel MD Acti ve CIPRO 500 MG TAB 1 tablet by mouth twice daily CIPROFLOXACIN HCL 37290111213 No Longer Active Dangelo Rangel MD Active PYRIDIUM 200 MG TABS take 1 tab po TID prn urinary pain. 0 PYRIDIUM 200 MG TABS 9906942 PHENAZOPYRIDINE HCL Inactive PERCOCET 5-325 MG TABS 1 tablet by mouth every 6 hours as needed PERCOCET 5-325 MG TABS 8428111 OXYCODONE-ACETAMINOPHEN I nactive ZOFRAN ODT 4 MG TBDP 1 po q6hr PRN Nausea ZOFRAN ODT 4 MG TBDP 425493 ONDANSETRON Inactive FOCALIN XR 15 MG [id number]-BJR 1 po q a.m. F OCALIN XR 15 MG PG09X-GSM DEXMETHYLPHENIDATE HCL Inactive LORTAB 5 5-500 MG TABS 1/2 to 1 tablet by mouth flaquito ry 4 hours as needed for pain LORTAB 5 5-500 MG TABS HYDROCODONE-A CETAMINOPHEN Inactive PERCOCET 10-325 MG TABS 1 tablet every 6 hours as needed for pain PERCOCET 10-325 MG TABS 1251322 OXYCODONE-ACETAMINOPHEN Inactive FOCALIN XR 10 MG [id number] 1 po q a.m. F OCALIN XR 10 MG [id number]-VPV DEXMETHYLPHENIDATE HCL Inactive CEFDINIR 300 MG CAPS 1 po bid CEFDINIR 300 MG CAPS 20 0346 CEFDINIR Inactive ANTIPYRINE-BENZOCAINE 5.4-1.4 % SOLN 1-2 drops in affected ear ANTIPYRINE-BENZOCAINE 5.4-1.4 % SOLN 036160 BENZOCAINE-ANTIPYRINE I nactive FLONASE 50 MCG/ACT SUSP 1 spray each nostril am and hs FLONASE 50 MCG/ACT SUSP 241273 FLUTICASONE PROPIONATE Inactive PHENERGAN CREAM* 25mg applied to wrist q6hr PRN Nausea PHENERGAN CREAM* Inactive FIORICET 325-50-40 MG TAB 1 tablet by mouth four times daily as needed FIORICET 325-50-40 MG TAB ACETAMINOPHEN-C AFF-BUTALBITAL Inactive TRAZODONE HCL 100 MG TAB 0.5 to 1 po qHS PRN Insomnia TRAZODONE HCL 100 MG TAB 239025 TRAZODONE HCL Inactive CONCERTA 18 MG CR-TABS [...] mouth twice daily CIPRO 500 MG TAB 520167 CIPROFLOXACIN HCL Inactive FLUCONAZOLE 150 MG TABS take 1 tab po qday once 04/06 FLUCONAZOLE 150 MG TABS 353574 FLUCONAZOLE Inactive ZITHROMAX Z-KARTIHK 250 MG TABS 2 today, then 1 daily for 4 days 201 09/18/28 ZITHROMAX Z-KARTHIK 250 MG TABS 9914961 AZITHROMYCIN Inac tive PREDNISONE 20 MG TAB 2 tabs daily for 3 days, 1 t ab daily for 3 days, 1/2 tab daily for 2 days PREDNISONE 20 MG TAB 602671 PREDNISON E Inactive AZITHROMYCIN 250 MG TABS 2 po qd x 1 day, then 1 po qd x 4 days AZITHROMYCIN 250 MG TABS 8180016 AZITHROMYCIN Inactiv e PREDNISONE 20 MG TAB 2 tabs daily for 3 days, 1 t ab daily for 3 days, 1/2 tab daily for 2 days PREDNISONE 20 MG TAB 024030 PREDNISON E Inactive Immunizations Vaccine Administration Date [...] 5.3 % 4.3-6.0 sodium, serum 139 mmol/L 335-957 3057/01/09 potassium, serum 4.3 mmol/L 3.5-5.2 chloride, serum [...] 1.10 mg/dL 0.00-1.00 cholesterol, serum 222 mg/dL 893-506 4183/01/09 triglyceride, serum, fasting 92 mg/dL 30-200 HDL [...] 142-424 Encounters Code Encounter Date Provider Facility CPT-32041 Level 3 Est. Patient 16:16:59 CDT Paul Hamlin MD [facility] CPT-27578 Level 3 Est. Patient 14:20:13 CDT Dangelo arroyo MD [facility] CPT-24757 Level 4 Est. Patient 11:29:33 CDT Checo Conklin MD [facility] CPT-40732 Level 3 Est. Patient 17:08:31 CDT Checo Conklin MD [facility] CPT-27023 Level 3 Est. Patient 16:50:42 ORE BUYER Checo Conklin MD [facility] CPT-73378 Level 4 Est. Patient 09:26:08 ORE BUYER Checo Conklin MD [facility] CPT-70885 Level 3 Est. Patient 11:37:10 CDT Checo Conklin MD [facility] CPT-25400 Level 4 Est. Patient 14:07:38 CDT Checo Conklin MD [facility] CPT-40496 Level 3 Est. Patient 09:54:41 CDT Checo Conklin MD [facility] CPT-57089 Level 3 Est. Patient 11:10:54 CDT Paul Hamlin MD [facility] CPT-51528 Level 3 Est. Patient 14:16:56 ORE BUYER Checo Conklin MD [facility] CPT-18626 Level 3 Est. Patient 11:04:11 ORE BUYER Checo Conklin MD [facility] CPT-58716 Level 3 Est. Patient 17:09:26 CDT Dangelo arroyo MD [facility] CPT-28418 Level 3 Est. Patient 16:54:37 CDT Checo Conklin MD [facility] Procedures Code Procedure Name Date Entry Date Standard Desc ription CPT-OV Office Visit 11:31:28 CDT CPT-95299 Tubersol 09:39:29 CDT CPT-J2550 Phenergan 25 mg (Promethazine) 13:59:02 ORE BUYER CPT-J1885 Toradol 60 mg (Ketorolac) 13:59:02 ORE BUYER 2012
--- OUTSIDE RECORDS SUMMARY | 2019-09-29 02:30 | XMS REPORT | Clinical Summary ---
Author Author Admin, Bethany Ayala [facility] Address Unknown Phone Unavailable Allergies, Adverse [...] FH BREAST CANCER ICD-V16.3 Inactive Checo Joshua DIABETES [...] Provider Patient Instruction BACTRIM DS 800-160 MG TABS 1 po BID x 7 days 0 SULFAMETHOXAZOLE-TRIMETHOPRIM [id number] Active Checo Conklin MD Active PREDNISONE 20 MG TAB 2 tabs daily for 3 days, 1 t ab daily for 3 days, 1/2 tab daily for 2 days PREDNISONE 70233349314 No Longer Active Checo Conklin MD Active TRIAMCINOLONE ACETONIDE 0.1 % OINT Apply to affected a reas TID for up to 2 weeks TRIAMCINOLONE ACETONIDE 07608249080 No Longer A ctive Checo Conklin MD Active HYDROCODONE-ACETAMINOPHEN 5-325 MG TABS 1/2 to 1 po q 4 hour s prn cough HYDROCODONE-ACETAMINOPHEN 38716022703 Active Paul montgomery MD Active CEFDINIR 300 MG CAPS by mouth twice a day CEFDI JAZZY 25248617237 No Longer Active Dangelo Rangel MD Active CELEXA 20 MG TABS 1 tablet by mouth daily CITAL OPRAM HYDROBROMIDE 20206923084 Active Checo Conklin MD Active BUPROPION HCL (SMOKING DETER) 150 MG [id number] 1 a day for 1 week then 1 twice a day BUPROPION HCL (SMOKING DETER) 35517925765 No Lo nger Active Checo Conklin MD Active SIMVASTATIN 20 MG TABS 1 po qd SIMVASTATIN 2330739613 4 Active Checo Conklin MD Active CHANTIX STARTING MONTH KARTHIK 0.5 MG X 11 & 1 MG X 42 TAB S 0.5mg daily for 3 days, then 0.5mg BID for 4 days, then 1mg BID VARENICLINE TARTRATE 32088537733 No Longer Active Checo Conklin MD Activ e XANAX 0.5 MG TABS 1 po BID PRN anxiety ALPRAZOLAM 79351346226 Active Checo Conklin MD Active CONCERTA 18 MG CR-TABS 1 po q a.m. METHYLPHENID ATE HCL 78833109858 No Longer Active Checo Conklin MD Active REGLAN 10 MG TAB 1 po TID PRN Nausea METOCLOPRA MIDE HCL 66560514943 Active Checo Conklin MD Active AMBIEN 5 MG TAB 1 po qHS PRN Insomnia ZOLPIDEM TARTRATE 54536456605 Active Checo Conklin MD Active TRAZODONE HCL 100 MG TAB 0.5 to 1 po qHS PRN Insomnia TRAZODONE HCL 62385211289 No Longer Active Checo Conklin MD Acti ve FIORICET 325-50-40 MG TAB 1 tablet by mouth four times daily as needed [id number] 53488445734 No Longer Active Checo Conklin MD Active PHENERGAN CREAM* 25mg applied to wrist q6hr PRN Nausea PHENERGAN CREAM* No Longer Active Checo Conklin MD A ctive LAMISIL 250 MG TAB 1 po qd TERBINAFINE HCL 6742666006 1 Active Checo Conklin MD Active FLONASE 50 MCG/ACT SUSP 1 spray each nostril am and hs FLUTICASONE PROPIONATE 47771875909 No Longer Active Checo Conklin MD Activ e ANTIPYRINE-BENZOCAINE 5.4-1.4 % SOLN 1-2 drops in affected ear BENZOCAINE-ANTIPYRINE 28835226006 No Longer Active Checo Conklin MD Active CEFDINIR 300 MG CAPS 1 po bid CEFDINIR 93354872 120 No Longer Active Checo Conklin MD Active PREDNISONE 20 MG TAB 2 tabs daily for 3 days, 1 t ab daily for 3 days, 1/2 tab daily for 2 days PREDNISONE 30939530076 No Longer Active Aracelis Conklin MD Active AZITHROMYCIN 250 MG TABS 2 po qd x 1 day, then 1 po qd x 4 days AZITHROMYCIN 14535154523 No Longer Active Checo Conklin MD Active PREDNISONE 20 MG TAB 2 tabs daily for 3 days, 1 t ab daily for 3 days, 1/2 tab daily for 2 days PREDNISONE 37620169425 No Longer Active Checo Conklin MD Active ZITHROMAX Z-KARTHIK 250 MG TABS 2 today, then 1 daily for 4 days 201 09/18/28 AZITHROMYCIN 01561240298 No Longer Active Paul Hamlin MD Active FOCALIN XR 10 MG [id number] 1 po q a.m. D EXMETHYLPHENIDATE HCL 93715492955 No Longer Active Paul Hamlin MD Activ e PERCOCET 10-325 MG TABS 1 tablet every 6 hours as needed for pain OXYCODONE-ACETAMINOPHEN 52160017012 No Longer Active Paul Hamlin MD Active LORTAB 5 5-500 MG TABS 1/2 to 1 tablet by mouth flaquito ry 4 hours as needed for pain HYDROCODONE-ACETAMINOPHEN 33542355048 No Longer Active Checo Conklin MD Active FOCALIN XR 15 MG [id number] 1 po q a.m. D EXMETHYLPHENIDATE HCL 70177384735 No Longer Active Checo Conklin MD Activ e ZOFRAN ODT 4 MG TBDP 1 po q6hr PRN Nausea ONDAN SETRON 67362619560 No Longer Active Checo Conklin MD Active PERCOCET 5-325 MG TABS 1 tablet by mouth every 6 hours as needed OXYCODONE-ACETAMINOPHEN 21074088147 No Longer Active Checo Conklin MD Active PYRIDIUM 200 MG TABS take 1 tab po TID prn urinary pain. 0 PHENAZOPYRIDINE HCL 28300214002 No Longer Active Checo Conklin MD Active FLUCONAZOLE 150 MG TABS take 1 tab po qday once 04/06 FLUCONAZOLE 49673443873 No Longer Active Dangelo Rangel MD Acti ve CIPRO 500 MG TAB 1 tablet by mouth twice daily CIPROFLOXACIN HCL 62353136069 No Longer Active Dangelo Rangel MD Active PYRIDIUM 200 MG TABS take 1 tab po TID prn urinary pain. 0 PYRIDIUM 200 MG TABS 6579230 PHENAZOPYRIDINE HCL Inactive PERCOCET 5-325 MG TABS 1 tablet by mouth every 6 hours as needed PERCOCET 5-325 MG TABS 4215301 OXYCODONE-ACETAMINOPHEN I nactive ZOFRAN ODT 4 MG TBDP 1 po q6hr PRN Nausea ZOFRAN ODT 4 MG TBDP 081316 ONDANSETRON Inactive FOCALIN XR 15 MG [id number] 1 po q a.m. F OCALIN XR 15 MG [id number] DEXMETHYLPHENIDATE HCL Inactive LORTAB 5 5-500 MG TABS 1/2 to 1 tablet by mouth flaquito ry 4 hours as needed for pain LORTAB 5 5-500 MG TABS HYDROCODONE-A CETAMINOPHEN Inactive PERCOCET 10-325 MG TABS 1 tablet every 6 hours as needed for pain PERCOCET 10-325 MG TABS 5342138 OXYCODONE-ACETAMINOPHEN Inactive FOCALIN XR 10 MG [id number] 1 po q a.m. F OCALIN XR 10 MG [id number] DEXMETHYLPHENIDATE HCL Inactive CEFDINIR 300 MG CAPS 1 po bid CEFDINIR 300 MG CAPS 20 0346 CEFDINIR Inactive ANTIPYRINE-BENZOCAINE 5.4-1.4 % SOLN 1-2 drops in affected ear ANTIPYRINE-BENZOCAINE 5.4-1.4 % SOLN 404464 BENZOCAINE-ANTIPYRINE I nactive FLONASE 50 MCG/ACT SUSP 1 spray each nostril am and hs FLONASE 50 MCG/ACT SUSP 749628 FLUTICASONE PROPIONATE Inactive PHENERGAN CREAM* 25mg applied to wrist q6hr PRN Nausea PHENERGAN CREAM* Inactive FIORICET 325-50-40 MG TAB 1 tablet by mouth four times daily as needed FIORICET 325-50-40 MG TAB ACETAMINOPHEN-C AFF-BUTALBITAL Inactive TRAZODONE HCL 100 MG TAB 0.5 to 1 po qHS PRN Insomnia TRAZODONE HCL 100 MG TAB 184881 TRAZODONE HCL Inactive CONCERTA 18 MG CR-TABS [...] mouth twice daily CIPRO 500 MG TAB 062968 CIPROFLOXACIN HCL Inactive FLUCONAZOLE 150 MG TABS take 1 tab po qday once 04/06 FLUCONAZOLE 150 MG TABS 260007 FLUCONAZOLE Inactive ZITHROMAX Z-KRATHIK 250 MG TABS 2 today, then 1 daily for 4 days 201 09/18/28 ZITHROMAX Z-KARTHIK 250 MG TABS 6830064 AZITHROMYCIN Inac tive PREDNISONE 20 MG TAB 2 tabs daily for 3 days, 1 t ab daily for 3 days, 1/2 tab daily for 2 days PREDNISONE 20 MG TAB 734257 PREDNISON E Inactive AZITHROMYCIN 250 MG TABS 2 po qd x 1 day, then 1 po qd x 4 days AZITHROMYCIN 250 MG TABS 8104604 AZITHROMYCIN Inactiv e PREDNISONE 20 MG TAB 2 tabs daily for 3 days, 1 t ab daily for 3 days, 1/2 tab daily for 2 days PREDNISONE 20 MG TAB 238732 PREDNISON E Inactive CEFDINIR 300 MG CAPS by mouth twice a day CEFDINIR 300 MG CAPS 223941 CEFDINIR Inactive TRIAMCINOLONE ACETONIDE 0.1 % OINT Apply to affected a reas TID for up to 2 weeks TRIAMCINOLONE ACETONIDE 0.1 % OINT 894496 6 TRIAMCINOLONE ACETONIDE Inactive PREDNISONE 20 MG TAB 2 tabs daily for 3 days, 1 t ab daily for 3 days, 1/2 tab daily for 2 days PREDNISONE 20 MG TAB 287108 PREDNISON E Inactive Immunizations Vaccine Administration Date [...] 5.3 % 4.3-6.0 sodium, serum 139 mmol/L 302-211 9962/01/09 potassium, serum 4.3 mmol/L 3.5-5.2 chloride, serum [...] 1.10 mg/dL 0.00-1.00 cholesterol, serum 222 mg/dL 186-400 7215/01/09 triglyceride, serum, fasting 92 mg/dL 30-200 HDL [...] 142-424 Encounters Code Encounter Date Provider Facility CPT-27277 Level 3 Est. Patient 16:53:02 CDT Checo Conklin MD [facility] CPT-20891 Level 3 Est. Patient 16:37:13 CDT Checo Conklin MD [facility] CPT-25219 Level 3 Est. Patient 16:16:59 CDT Paul Hamlin MD [facility] CPT-65577 Level 3 Est. Patient 14:20:13 CDT Dangelo arroyo MD [facility] CPT-53565 Level 4 Est. Patient 11:29:33 CDT Checo Conklin MD [facility] CPT-37890 Level 3 Est. Patient 17:08:31 CDT Checo Conklin MD [facility] CPT-67127 Level 3 Est. Patient 16:50:42 SENIOR ASSOCIATE Checo Conklin MD [facility] CPT-61826 Level 4 Est. Patient 09:26:08 SENIOR ASSOCIATE Checo Conklin MD [facility] CPT-14666 Level 3 Est. Patient 11:37:10 CDT Checo Conklin MD [facility] CPT-45466 Level 4 Est. Patient 14:07:38 CDT Checo Conklin MD [facility] CPT-23034 Level 3 Est. Patient 09:54:41 CDT Checo Conklin MD [facility] CPT-77133 Level 3 Est. Patient 11:10:54 CDT Paul Hamlin MD [facility] CPT-67634 Level 3 Est. Patient 14:16:56 SENIOR ASSOCIATE Checo Conklin MD [facility] CPT-36681 Level 3 Est. Patient 11:04:11 SENIOR ASSOCIATE Checo Conklin MD [facility] CPT-87992 Level 3 Est. Patient 17:09:26 CDT Dangelo arroyo MD [facility] CPT-26993 Level 3 Est. Patient 16:54:37 CDT Checo Conklin MD [facility] Procedures Code Procedure Name Date Entry Date Standard Desc ription CPT-OV Office Visit 11:31:28 CDT CPT-06931 Tubersol 09:39:29 CDT CPT-J2550 Phenergan 25 mg (Promethazine) 13:59:02 SENIOR ASSOCIATE CPT-J1885 Toradol 60 mg (Ketorolac) 13:59:02 SENIOR ASSOCIATE 2012
--- OUTSIDE RECORDS SUMMARY | 2019-09-29 02:30 | XMS REPORT | Clinical Summary ---
[...] q 4 hour s prn cough HYDROCODONE-ACETAMINOPHEN 41989426564 Active Paul montgomery MD Active CEFDINIR 300 MG CAPS by mouth twice a day CEFDI JAZZY 89106087346 No Longer Active Dangelo Rangel MD Active CELEXA 20 MG TABS 1 tablet by mouth daily CITAL OPRAM HYDROBROMIDE 43973616635 Active Checo Conklin MD Active BUPROPION HCL (SMOKING DETER) 150 MG [id number] 1 a day for 1 week then 1 twice a day BUPROPION HCL (SMOKING DETER) 91532010365 No Lo nger Active Checo Conklin MD Active SIMVASTATIN 20 MG TABS 1 po qd SIMVASTATIN 8083224929 4 Active Checo Conklin MD Active CHANTIX STARTING MONTH KARTHIK 0.5 MG X 11 & 1 MG X 42 TAB S 0.5mg daily for 3 days, then 0.5mg BID for 4 days, then 1mg BID VARENICLINE TARTRATE 15422089563 No Longer Active Checo Conklin MD Activ e XANAX 0.5 MG TABS 1 po BID PRN anxiety ALPRAZOLAM 05403741737 Active Checo Conklin MD Active CONCERTA 18 MG CR-TABS 1 po q a.m. METHYLPHENID ATE HCL 15614422749 No Longer Active Checo Conklin MD Active REGLAN 10 MG TAB 1 po TID PRN Nausea METOCLOPRA MIDE HCL 36675738121 Active Checo Conklin MD Active AMBIEN 5 MG TAB 1 po qHS PRN Insomnia ZOLPIDEM TARTRATE 19827456897 Active Checo Conklin MD Active TRAZODONE HCL 100 MG TAB 0.5 to 1 po qHS PRN Insomnia TRAZODONE HCL 64074618589 No Longer Active Checo Conklin MD Acti ve FIORICET 325-50-40 MG TAB 1 tablet by mouth four times daily as needed [id number] 95730524945 No Longer Active Checo Conklin MD Active PHENERGAN CREAM* 25mg applied to wrist q6hr PRN Nausea PHENERGAN CREAM* No Longer Active Checo Conklin MD A ctive LAMISIL 250 MG TAB 1 po qd TERBINAFINE HCL 0540992019 1 Active Checo Conklin MD Active FLONASE 50 MCG/ACT SUSP 1 spray each nostril am and hs FLUTICASONE PROPIONATE 92341975652 No Longer Active Checo Conklin MD Activ e ANTIPYRINE-BENZOCAINE 5.4-1.4 % SOLN 1-2 drops in affected ear BENZOCAINE-ANTIPYRINE 46852710934 No Longer Active Checo Conklin MD Active CEFDINIR 300 MG CAPS 1 po bid CEFDINIR 57397891 120 No Longer Active Checo Conklin MD Active PREDNISONE 20 MG TAB 2 tabs daily for 3 days, 1 t ab daily for 3 days, 1/2 tab daily for 2 days PREDNISONE 83192450629 No Longer Active Aracelis Conklin MD Active AZITHROMYCIN 250 MG TABS 2 po qd x 1 day, then 1 po qd x 4 days AZITHROMYCIN 18227948213 No Longer Active Checo Conklin MD Active PREDNISONE 20 MG TAB 2 tabs daily for 3 days, 1 t ab daily for 3 days, 1/2 tab daily for 2 days PREDNISONE 34455670991 No Longer Active Checo Conklin MD Active ZITHROMAX Z-KARTHIK 250 MG TABS 2 today, then 1 daily for 4 days 201 09/18/28 AZITHROMYCIN 48828409705 No Longer Active Paul Hamlin MD Active FOCALIN XR 10 MG [id number] 1 po q a.m. D EXMETHYLPHENIDATE HCL 67579489169 No Longer Active Paul Hamlin MD Activ e PERCOCET 10-325 MG TABS 1 tablet every 6 hours as needed for pain OXYCODONE-ACETAMINOPHEN 93963799052 No Longer Active Paul Hamlin MD Active LORTAB 5 5-500 MG TABS 1/2 to 1 tablet by mouth flaquito ry 4 hours as needed for pain HYDROCODONE-ACETAMINOPHEN 92398330781 No Longer Active Checo Conklin MD Active FOCALIN XR 15 MG [id number] 1 po q a.m. D EXMETHYLPHENIDATE HCL 43855617727 No Longer Active Checo Conklin MD Activ e ZOFRAN ODT 4 MG TBDP 1 po q6hr PRN Nausea ONDAN SETRON 87826008763 No Longer Active Checo Conklin MD Active PERCOCET 5-325 MG TABS 1 tablet by mouth every 6 hours as needed OXYCODONE-ACETAMINOPHEN 83216932966 No Longer Active Checo Conklin MD Active PYRIDIUM 200 MG TABS take 1 tab po TID prn urinary pain. 0 PHENAZOPYRIDINE HCL 97584506858 No Longer Active Checo Conklin MD Active FLUCONAZOLE 150 MG TABS take 1 tab po qday once 04/06 FLUCONAZOLE 75435643900 No Longer Active Dangelo Rangel MD Acti ve CIPRO 500 MG TAB 1 tablet by mouth twice daily CIPROFLOXACIN HCL 12280312992 No Longer Active Dangelo Rangel MD Active PYRIDIUM 200 MG TABS take 1 tab po TID prn urinary pain. 0 PYRIDIUM 200 MG TABS 1827931 PHENAZOPYRIDINE HCL Inactive PERCOCET 5-325 MG TABS 1 tablet by mouth every 6 hours as needed PERCOCET 5-325 MG TABS 2725636 OXYCODONE-ACETAMINOPHEN I nactive ZOFRAN ODT 4 MG TBDP 1 po q6hr PRN Nausea ZOFRAN ODT 4 MG TBDP 817301 ONDANSETRON Inactive FOCALIN XR 15 MG [id number] 1 po q a.m. F OCALIN XR 15 MG [id number] DEXMETHYLPHENIDATE HCL Inactive LORTAB 5 5-500 MG TABS 1/2 to 1 tablet by mouth flaquito ry 4 hours as needed for pain LORTAB 5 5-500 MG TABS HYDROCODONE-A CETAMINOPHEN Inactive PERCOCET 10-325 MG TABS 1 tablet every 6 hours as needed for pain PERCOCET 10-325 MG TABS 3584652 OXYCODONE-ACETAMINOPHEN Inactive FOCALIN XR 10 MG [id number] 1 po q a.m. F OCALIN XR 10 MG [id number] DEXMETHYLPHENIDATE HCL Inactive CEFDINIR 300 MG CAPS 1 po bid CEFDINIR 300 MG CAPS 20 0346 CEFDINIR Inactive ANTIPYRINE-BENZOCAINE 5.4-1.4 % SOLN 1-2 drops in affected ear ANTIPYRINE-BENZOCAINE 5.4-1.4 % SOLN 964076 BENZOCAINE-ANTIPYRINE I nactive FLONASE 50 MCG/ACT SUSP 1 spray each nostril am and hs FLONASE 50 MCG/ACT SUSP 375395 FLUTICASONE PROPIONATE Inactive PHENERGAN CREAM* 25mg applied to wrist q6hr PRN Nausea PHENERGAN CREAM* Inactive FIORICET 325-50-40 MG TAB 1 tablet by mouth four times daily as needed FIORICET 325-50-40 MG TAB ACETAMINOPHEN-C AFF-BUTALBITAL Inactive TRAZODONE HCL 100 MG TAB 0.5 to 1 po qHS PRN Insomnia TRAZODONE HCL 100 MG TAB 571075 TRAZODONE HCL Inactive CONCERTA 18 MG CR-TABS [...] mouth twice daily CIPRO 500 MG TAB 855065 CIPROFLOXACIN HCL Inactive FLUCONAZOLE 150 MG TABS take 1 tab po qday once 04/06 FLUCONAZOLE 150 MG TABS 781707 FLUCONAZOLE Inactive ZITHROMAX Z-KARTHIK 250 MG TABS 2 today, then 1 daily for 4 days 201 09/18/28 ZITHROMAX Z-KARTHIK 250 MG TABS 6479057 AZITHROMYCIN Inac tive PREDNISONE 20 MG TAB 2 tabs daily for 3 days, 1 t ab daily for 3 days, 1/2 tab daily for 2 days PREDNISONE 20 MG TAB 675938 PREDNISON E Inactive AZITHROMYCIN 250 MG TABS 2 po qd x 1 day, then 1 po qd x 4 days AZITHROMYCIN 250 MG TABS 3201542 AZITHROMYCIN Inactiv e PREDNISONE 20 MG TAB 2 tabs daily for 3 days, 1 t ab daily for 3 days, 1/2 tab daily for 2 days PREDNISONE 20 MG TAB 699116 PREDNISON E Inactive CEFDINIR 300 MG CAPS by mouth twice a day CEFDINIR 300 MG CAPS 226688 CEFDINIR Inactive Immunizations Vaccine Administration Date Value Standard [...] 5.3 % 4.3-6.0 sodium, serum 139 mmol/L 478-552 6490/01/09 potassium, serum 4.3 mmol/L 3.5-5.2 chloride, serum [...] 1.10 mg/dL 0.00-1.00 cholesterol, serum 222 mg/dL 469-376 1042/01/09 triglyceride, serum, fasting 92 mg/dL 30-200 HDL [...] 142-424 Encounters Code Encounter Date Provider Facility CPT-16593 Level 3 Est. Patient 16:16:59 CDT Paul Hamlin MD [facility] CPT-73825 Level 3 Est. Patient 14:20:13 CDT Dangelo arroyo MD [facility] CPT-05670 Level 4 Est. Patient 11:29:33 CDT Checo Conklin MD [facility] CPT-75322 Level 3 Est. Patient 17:08:31 CDT Checo Conklin MD [facility] CPT-20890 Level 3 Est. Patient 16:50:42 [employer]YEAR [employer] Checo Conklin MD [facility] CPT-88254 Level 4 Est. Patient 09:26:08 [employer]YEAR [employer]ER Checo Conklin MD [facility] CPT-87601 Level 3 Est. Patient 11:37:10 CDT Checo Conklin MD [facility] CPT-13793 Level 4 Est. Patient 14:07:38 CDT Checo Conklin MD [facility] CPT-32090 Level 3 Est. Patient 09:54:41 CDT Checo Conklin MD [facility] CPT-79160 Level 3 Est. Patient 11:10:54 CDT Paul Hamlin MD [facility] CPT-68114 Level 3 Est. Patient 14:16:56 [employer]YE[employer]ER hCeco Conklin MD [facility] CPT-75662 Level 3 Est. Patient 11:04:11 [employer]YEAR [employer] Checo Conklin MD [facility] CPT-92830 Level 3 Est. Patient 17:09:26 CDT Dangelo arroyo MD [facility] CPT-76216 Level 3 Est. Patient 16:54:37 CDT Checo Conklin MD [facility] Procedures Code Procedure Name Date Entry Date Standard Desc ription CPT-OV Office Visit 11:31:28 CDT CPT-27701 Tubersol 09:39:29 CDT CPT-J2550 Phenergan 25 mg (Promethazine) 13:59:02 [employer]YEAR [employer]ER CPT-J1885 Toradol 60 mg (Ketorolac) 13:59:02 GOODYEAR [employer]ITCHER 2012
--- OUTSIDE RECORDS SUMMARY | 2019-09-29 02:30 | XMS REPORT | Clinical Summary ---
Author Author Admin, Bethany Gonzales Organization [facility] Address Unknown Phone Unavailable Allergies, [...] unspecified A D D 314.00 Active Checo oCnklin MD Attention deficit disorder of childhood without [...] in breast Breast mass, right 611.72 Active Vikcy Joshua Lump or mass in breast Mastalgia [...] tablet by mouth daily CITAL OPRAM HYDROBROMIDE 21996618772 Active Checo Conklin MD Active BUPROPION HCL (SMOKING DETER) 150 MG [id number] 1 a day for 1 week then 1 twice a day BUPROPION HCL (SMOKING DETER) 00686493003 No Lo nger Active Checo Conklin MD Active SIMVASTATIN 20 MG TABS 1 po qd SIMVASTATIN 0619458994 4 Active Checo Conklin MD Active CHANTIX STARTING MONTH KARTHIK 0.5 MG X 11 & 1 MG X 42 TAB S 0.5mg daily for 3 days, then 0.5mg BID for 4 days, then 1mg BID VARENICLINE TARTRATE 38750509121 No Longer Active Checo Conklin MD Activ e XANAX 0.5 MG TABS 1 po BID PRN anxiety ALPRAZOLAM 09697698975 Active Checo Conklin MD Active CONCERTA 18 MG CR-TABS 1 po q a.m. METHYLPHENID ATE HCL 07588083482 No Longer Active Checo Conklin MD Active REGLAN 10 MG TAB 1 po TID PRN Nausea METOCLOPRA MIDE HCL 79208327855 Active Checo Conklin MD Active AMBIEN 5 MG TAB 1 po qHS PRN Insomnia ZOLPIDEM TARTRATE 23661536011 Active Checo Conklin MD Active TRAZODONE HCL 100 MG TAB 0.5 to 1 po qHS PRN Insomnia TRAZODONE HCL 77893892189 No Longer Active Checo Conklin MD Acti ve FIORICET 325-50-40 MG TAB 1 tablet by mouth four times daily as needed [id number] 22048804437 No Longer Active Checo Conklin MD Active PHENERGAN CREAM* 25mg applied to wrist q6hr PRN Nausea PHENERGAN CREAM* No Longer Active Checo Conklin MD A ctive LAMISIL 250 MG TAB 1 po qd TERBINAFINE HCL 1694582686 1 Active Checo Conklin MD Active FLONASE 50 MCG/ACT SUSP 1 spray each nostril am and hs FLUTICASONE PROPIONATE 63651401554 No Longer Active Checo Conklin MD Activ e ANTIPYRINE-BENZOCAINE 5.4-1.4 % SOLN 1-2 drops in affected ear BENZOCAINE-ANTIPYRINE 83867958988 No Longer Active Checo Conklin MD Active CEFDINIR 300 MG CAPS 1 po bid CEFDINIR 36928247 120 No Longer Active Checo Conklin MD Active PREDNISONE 20 MG TAB 2 tabs daily for 3 days, 1 t ab daily for 3 days, 1/2 tab daily for 2 days PREDNISONE 39367638613 No Longer Active Aracelis Conklin MD Active AZITHROMYCIN 250 MG TABS 2 po qd x 1 day, then 1 po qd x 4 days AZITHROMYCIN 68221238768 No Longer Active Checo Conklin MD Active PREDNISONE 20 MG TAB 2 tabs daily for 3 days, 1 t ab daily for 3 days, 1/2 tab daily for 2 days PREDNISONE 30989236176 No Longer Active Checo Conklin MD Active ZITHROMAX Z-KARTHIK 250 MG TABS 2 today, then 1 daily for 4 days 201 09/18/28 AZITHROMYCIN 78310533694 No Longer Active Paul Hamlin MD Active FOCALIN XR 10 MG [id number] 1 po q a.m. D EXMETHYLPHENIDATE HCL 53378734047 No Longer Active Paul Hamlin MD Activ e PERCOCET 10-325 MG TABS 1 tablet every 6 hours as needed for pain OXYCODONE-ACETAMINOPHEN 25191133997 No Longer Active Paul Hamlin MD Active LORTAB 5 5-500 MG TABS 1/2 to 1 tablet by mouth flaquito ry 4 hours as needed for pain HYDROCODONE-ACETAMINOPHEN 23134281084 No Longer Active Checo Conklin MD Active FOCALIN XR 15 MG [id number] 1 po q a.m. D EXMETHYLPHENIDATE HCL 12023535001 No Longer Active Checo Conklin MD Activ e ZOFRAN ODT 4 MG TBDP 1 po q6hr PRN Nausea ONDAN SETRON 89526534086 No Longer Active Checo Conklin MD Active PERCOCET 5-325 MG TABS 1 tablet by mouth every 6 hours as needed OXYCODONE-ACETAMINOPHEN 28059134793 No Longer Active Checo Conklin MD Active PYRIDIUM 200 MG TABS take 1 tab po TID prn urinary pain. 0 PHENAZOPYRIDINE HCL 04438000885 No Longer Active Checo Conklin MD Active FLUCONAZOLE 150 MG TABS take 1 tab po qday once 04/06 FLUCONAZOLE 80916192959 No Longer Active Dangelo Rangel MD Acti ve CIPRO 500 MG TAB 1 tablet by mouth twice daily CIPROFLOXACIN HCL 89208323321 No Longer Active Dangelo Rangel MD Active PYRIDIUM 200 MG TABS take 1 tab po TID prn urinary pain. 0 PYRIDIUM 200 MG TABS 4881633 PHENAZOPYRIDINE HCL Inactive PERCOCET 5-325 MG TABS 1 tablet by mouth every 6 hours as needed PERCOCET 5-325 MG TABS 3033272 OXYCODONE-ACETAMINOPHEN I nactive ZOFRAN ODT 4 MG TBDP 1 po q6hr PRN Nausea ZOFRAN ODT 4 MG TBDP 862792 ONDANSETRON Inactive FOCALIN XR 15 MG [id number] 1 po q a.m. F OCALIN XR 15 MG [id number]-AAR DEXMETHYLPHENIDATE HCL Inactive LORTAB 5 5-500 MG TABS 1/2 to 1 tablet by mouth flaquito ry 4 hours as needed for pain LORTAB 5 5-500 MG TABS HYDROCODONE-A CETAMINOPHEN Inactive PERCOCET 10-325 MG TABS 1 tablet every 6 hours as needed for pain PERCOCET 10-325 MG TABS 4378813 OXYCODONE-ACETAMINOPHEN Inactive FOCALIN XR 10 MG [id number] 1 po q a.m. F OCALIN XR 10 MG [id number] DEXMETHYLPHENIDATE HCL Inactive CEFDINIR 300 MG CAPS 1 po bid CEFDINIR 300 MG CAPS 20 0346 CEFDINIR Inactive ANTIPYRINE-BENZOCAINE 5.4-1.4 % SOLN 1-2 drops in affected ear ANTIPYRINE-BENZOCAINE 5.4-1.4 % SOLN 479039 BENZOCAINE-ANTIPYRINE I nactive FLONASE 50 MCG/ACT SUSP 1 spray each nostril am and hs FLONASE 50 MCG/ACT SUSP 326464 FLUTICASONE PROPIONATE Inactive PHENERGAN CREAM* 25mg applied to wrist q6hr PRN Nausea PHENERGAN CREAM* Inactive FIORICET 325-50-40 MG TAB 1 tablet by mouth four times daily as needed FIORICET 325-50-40 MG TAB ACETAMINOPHEN-C AFF-BUTALBITAL Inactive TRAZODONE HCL 100 MG TAB 0.5 to 1 po qHS PRN Insomnia TRAZODONE HCL 100 MG TAB 036019 TRAZODONE HCL Inactive CONCERTA 18 MG CR-TABS [...] mouth twice daily CIPRO 500 MG TAB 915662 CIPROFLOXACIN HCL Inactive FLUCONAZOLE 150 MG TABS take 1 tab po qday once 04/06 FLUCONAZOLE 150 MG TABS 951106 FLUCONAZOLE Inactive ZITHROMAX Z-KARTHIK 250 MG TABS 2 today, then 1 daily for 4 days 201 09/18/28 ZITHROMAX Z-KARTHIK 250 MG TABS 0177938 AZITHROMYCIN Inac tive PREDNISONE 20 MG TAB 2 tabs daily for 3 days, 1 t ab daily for 3 days, 1/2 tab daily for 2 days PREDNISONE 20 MG TAB 287187 PREDNISON E Inactive AZITHROMYCIN 250 MG TABS 2 po qd x 1 day, then 1 po qd x 4 days AZITHROMYCIN 250 MG TABS 7384635 AZITHROMYCIN Inactiv e PREDNISONE 20 MG TAB 2 tabs daily for 3 days, 1 t ab daily for 3 days, 1/2 tab daily for 2 days PREDNISONE 20 MG TAB 559327 PREDNISON E Inactive Immunizations Vaccine Administration Date [...] 5.3 % 4.3-6.0 sodium, serum 139 mmol/L 894-202 9072/01/09 potassium, serum 4.3 mmol/L 3.5-5.2 chloride, serum [...] 1.10 mg/dL 0.00-1.00 cholesterol, serum 222 mg/dL 044-305 2521/01/09 triglyceride, serum, fasting 92 mg/dL 30-200 HDL [...] 142-424 Encounters Code Encounter Date Provider Facility CPT-94244 Level 4 Est. Patient 11:29:33 CDT Checo Conklin MD [facility] CPT-03237 Level 3 Est. Patient 17:08:31 CDT Checo Conklin MD [facility] CPT-78096 Level 3 Est. Patient 16:50:42 TSO Checo Conklin MD [facility] CPT-17571 Level 4 Est. Patient 09:26:08 TSO Checo Conklin MD [facility] CPT-22989 Level 3 Est. Patient 11:37:10 CDT Checo Conklin MD [facility] CPT-99764 Level 4 Est. Patient 14:07:38 CDT Checo Conklin MD [facility] CPT-66194 Level 3 Est. Patient 09:54:41 CDT Checo Conklin MD [facility] CPT-48038 Level 3 Est. Patient 11:10:54 CDT Paul Hamlin MD [facility] CPT-95194 Level 3 Est. Patient 14:16:56 TSO Checo Conklin MD [facility] CPT-91508 Level 3 Est. Patient 11:04:11 TSO Checo Conklin MD [facility] CPT-69920 Level 3 Est. Patient 17:09:26 CDT Dangelo arroyo MD [facility] CPT-08761 Level 3 Est. Patient 16:54:37 CDT Checo Conklin MD [facility] Procedures Code Procedure Name Date Entry Date Standard Desc ription CPT-OV Office Visit 11:31:28 CDT CPT-29600 Tubersol 09:39:29 CDT CPT-J2550 Phenergan 25 mg (Promethazine) 13:59:02 TSO CPT-J1885 Toradol 60 mg (Ketorolac) 13:59:02 TSO 2012
--- OUTSIDE RECORDS SUMMARY | 2019-09-29 02:30 | XMS REPORT | Clinical Summary ---
Author Author Admin, Bethany Gonzales Organization [facility] Address Unknown Phone Unavailable [...] care facility OTITIS MEDIA-RIGHT 382.9 Resolved Checo ricehy MD Unspecified otitis media Onychomycosis, toenails 110.1 [...] Active Vicky Dozier MD Mastodynia Sinusitis 461.9 Resolved Checo Conklin MD Acute sinusitis, unspecified Insect bite 919.4 Active Checo Conklin MD Insect bite, nonvenomous, of other, multiple, and unspecified sites, without mention of infection FH BREAST CANCER ICD-V16.3 Inactive Checo Joshua [...] Conklin MD Insomnia ICD-780.52 Inactive Checo Joshua Sinusitis ICD-461.9 Inactive Checo Conklin MD Medication List Medication Instructions Start Date Stop Date Generic Name NDC Status Provider Patient Instruction PREDNISONE 20 MG TAB 2 tabs daily for 3 days, 1 t ab daily for 3 days, 1/2 tab daily for 2 days PREDNISONE 52203906504 Active Checo Conklin MD Active TRIAMCINOLONE ACETONIDE 0.1 % OINT Apply to affected a reas TID for up to 2 weeks TRIAMCINOLONE ACETONIDE 37578900002 Active Checo Conklin MD Active HYDROCODONE-ACETAMINOPHEN 5-325 MG TABS 1/2 to 1 po q 4 hour s prn cough HYDROCODONE-ACETAMINOPHEN 62065497248 Active Paul montgomery MD Active CEFDINIR 300 MG CAPS by mouth twice a day CEFDI JAZZY 09000261682 No Longer Active Dangelo Rangel MD Active CELEXA 20 MG TABS 1 tablet by mouth daily CITAL OPRAM HYDROBROMIDE 72910946981 Active Checo Conklin MD Active BUPROPION HCL (SMOKING DETER) 150 MG [id number] 1 a day for 1 week then 1 twice a day BUPROPION HCL (SMOKING DETER) 41064329872 No Lo nger Active Checo Conklin MD Active SIMVASTATIN 20 MG TABS 1 po qd SIMVASTATIN 5621904608 4 Active Checo Conklin MD Active CHANTIX STARTING MONTH KARTHIK 0.5 MG X 11 & 1 MG X 42 TAB S 0.5mg daily for 3 days, then 0.5mg BID for 4 days, then 1mg BID VARENICLINE TARTRATE 06239814194 No Longer Active Checo Conklin MD Activ e XANAX 0.5 MG TABS 1 po BID PRN anxiety ALPRAZOLAM 47960371358 Active Checo Conklin MD Active CONCERTA 18 MG CR-TABS 1 po q a.m. METHYLPHENID ATE HCL 40048085533 No Longer Active Checo Conklin MD Active REGLAN 10 MG TAB 1 po TID PRN Nausea METOCLOPRA MIDE HCL 78071008570 Active Checo Conklin MD Active AMBIEN 5 MG TAB 1 po qHS PRN Insomnia ZOLPIDEM TARTRATE 23244061944 Active Checo Conklin MD Active TRAZODONE HCL 100 MG TAB 0.5 to 1 po qHS PRN Insomnia TRAZODONE HCL 73428223581 No Longer Active Checo Conklin MD Acti ve FIORICET 325-50-40 MG TAB 1 tablet by mouth four times daily as needed [id number] 04610371871 No Longer Active Checo Conklin MD Active PHENERGAN CREAM* 25mg applied to wrist q6hr PRN Nausea PHENERGAN CREAM* No Longer Active Checo Conklin MD A ctive LAMISIL 250 MG TAB 1 po qd TERBINAFINE HCL 3980240011 1 Active Checo Conklin MD Active FLONASE 50 MCG/ACT SUSP 1 spray each nostril am and hs FLUTICASONE PROPIONATE 96227989729 No Longer Active Checo Conklin MD Activ e ANTIPYRINE-BENZOCAINE 5.4-1.4 % SOLN 1-2 drops in affected ear BENZOCAINE-ANTIPYRINE 40739888967 No Longer Active Checo Conklin MD Active CEFDINIR 300 MG CAPS 1 po bid CEFDINIR 43811678 120 No Longer Active Checo Conklin MD Active PREDNISONE 20 MG TAB 2 tabs daily for 3 days, 1 t ab daily for 3 days, 1/2 tab daily for 2 days PREDNISONE 17905612334 No Longer Active Aracelis Conklin MD Active AZITHROMYCIN 250 MG TABS 2 po qd x 1 day, then 1 po qd x 4 days AZITHROMYCIN 33664659369 No Longer Active Checo Conklin MD Active PREDNISONE 20 MG TAB 2 tabs daily for 3 days, 1 t ab daily for 3 days, 1/2 tab daily for 2 days PREDNISONE 67758442035 No Longer Active Checo Conklin MD Active ZITHROMAX Z-KARTHIK 250 MG TABS 2 today, then 1 daily for 4 days 201 09/18/28 AZITHROMYCIN 36644502411 No Longer Active Paul Hamlin MD Active FOCALIN XR 10 MG [id number] 1 po q a.m. D EXMETHYLPHENIDATE HCL 26037269265 No Longer Active Paul Hamlin MD Activ e PERCOCET 10-325 MG TABS 1 tablet every 6 hours as needed for pain OXYCODONE-ACETAMINOPHEN 61706239387 No Longer Active Paul Hamlin MD Active LORTAB 5 5-500 MG TABS 1/2 to 1 tablet by mouth flaquito ry 4 hours as needed for pain HYDROCODONE-ACETAMINOPHEN 11483587566 No Longer Active Checo Conklin MD Active FOCALIN XR 15 MG [id number] 1 po q a.m. D EXMETHYLPHENIDATE HCL 38236919879 No Longer Active Checo Conklin MD Activ e ZOFRAN ODT 4 MG TBDP 1 po q6hr PRN Nausea ONDAN SETRON 71664549956 No Longer Active Checo Conklin MD Active PERCOCET 5-325 MG TABS 1 tablet by mouth every 6 hours as needed OXYCODONE-ACETAMINOPHEN 89390806922 No Longer Active Checo Conklin MD Active PYRIDIUM 200 MG TABS take 1 tab po TID prn urinary pain. 0 PHENAZOPYRIDINE HCL 23949674248 No Longer Active Checo Conklin MD Active FLUCONAZOLE 150 MG TABS take 1 tab po qday once 0 04/06 FLUCONAZOLE 50562389577 No Longer Active Dangelo Rangel MD Acti ve CIPRO 500 MG TAB 1 tablet by mouth twice daily CIPROFLOXACIN HCL 85586422312 No Longer Active Dangelo Rangel MD Active PYRIDIUM 200 MG TABS take 1 tab po TID prn urinary pain. 0 PYRIDIUM 200 MG TABS 5879283 PHENAZOPYRIDINE HCL Inactive PERCOCET 5-325 MG TABS 1 tablet by mouth every 6 hours as needed PERCOCET 5-325 MG TABS 1052702 OXYCODONE-ACETAMINOPHEN I nactive ZOFRAN ODT 4 MG TBDP 1 po q6hr PRN Nausea ZOFRAN ODT 4 MG TBDP 298848 ONDANSETRON Inactive FOCALIN XR 15 MG [id number] 1 po q a.m. F OCALIN XR 15 MG [id number] DEXMETHYLPHENIDATE HCL Inactive LORTAB 5 5-500 MG TABS 1/2 to 1 tablet by mouth flaquito ry 4 hours as needed for pain LORTAB 5 5-500 MG TABS HYDROCODONE-A CETAMINOPHEN Inactive PERCOCET 10-325 MG TABS 1 tablet every 6 hours as needed for pain PERCOCET 10-325 MG TABS 9215933 OXYCODONE-ACETAMINOPHEN Inactive FOCALIN XR 10 MG [id number] 1 po q a.m. F OCALIN XR 10 MG [id number]-[id number] DEXMETHYLPHENIDATE HCL Inactive CEFDINIR 300 MG CAPS 1 po bid CEFDINIR 300 MG CAPS 20 0346 CEFDINIR Inactive ANTIPYRINE-BENZOCAINE 5.4-1.4 % SOLN 1-2 drops in affected ear ANTIPYRINE-BENZOCAINE 5.4-1.4 % SOLN 859173 BENZOCAINE-ANTIPYRINE I nactive FLONASE 50 MCG/ACT SUSP 1 spray each nostril am and hs FLONASE 50 MCG/ACT SUSP 304460 FLUTICASONE PROPIONATE Inactive PHENERGAN CREAM* 25mg applied to wrist q6hr PRN Nausea PHENERGAN CREAM* Inactive FIORICET 325-50-40 MG TAB 1 tablet by mouth four times daily as needed FIORICET 325-50-40 MG TAB ACETAMINOPHEN-C AFF-BUTALBITAL Inactive TRAZODONE HCL 100 MG TAB 0.5 to 1 po qHS PRN Insomnia TRAZODONE HCL 100 MG TAB 854052 TRAZODONE HCL Inactive CONCERTA 18 MG CR-TABS [...] mouth twice daily CIPRO 500 MG TAB 274902 CIPROFLOXACIN HCL Inactive FLUCONAZOLE 150 MG TABS take 1 tab po qday once 04/06 FLUCONAZOLE 150 MG TABS 852125 FLUCONAZOLE Inactive ZITHROMAX Z-KARTHIK 250 MG TABS 2 today, then 1 daily for 4 days 201 09/18/28 ZITHROMAX Z-KARTHIK 250 MG TABS 2920550 AZITHROMYCIN Inac tive PREDNISONE 20 MG TAB 2 tabs daily for 3 days, 1 t ab daily for 3 days, 1/2 tab daily for 2 days PREDNISONE 20 MG TAB 666108 PREDNISON E Inactive AZITHROMYCIN 250 MG TABS 2 po qd x 1 day, then 1 po qd x 4 days AZITHROMYCIN 250 MG TABS 7689779 AZITHROMYCIN Inactiv e PREDNISONE 20 MG TAB 2 tabs daily for 3 days, 1 t ab daily for 3 days, 1/2 tab daily for 2 days PREDNISONE 20 MG TAB 416622 PREDNISON E Inactive CEFDINIR 300 MG CAPS by mouth twice a day CEFDINIR 300 MG CAPS 099681 CEFDINIR Inactive Immunizations Vaccine Administration Date Value [...] 5.3 % 4.3-6.0 sodium, serum 139 mmol/L 376-579 9954/01/09 potassium, serum 4.3 mmol/L 3.5-5.2 chloride, serum [...] 1.10 mg/dL 0.00-1.00 cholesterol, serum 222 mg/dL 118-562 6967/01/09 triglyceride, serum, fasting 92 mg/dL 30-200 HDL [...] 142-424 Encounters Code Encounter Date Provider Facility CPT-19753 Level 3 Est. Patient 16:37:13 CDT Checo Conklin MD [facility] CPT-55378 Level 3 Est. Patient 16:16:59 CDT Paul Hamlin MD [facility] CPT-10391 Level 3 Est. Patient 14:20:13 CDT Dangelo arroyo MD [facility] CPT-16677 Level 4 Est. Patient 11:29:33 CDT Checo Conklin MD [facility] CPT-09853 Level 3 Est. Patient 17:08:31 CDT Checo Conklin MD [facility] CPT-64545 Level 3 Est. 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 Patient 11:37:10 CDT Checo Conklin MD [facility] CPT-34286 Level 4 Est. Patient 14:07:38 CDT Checo Conklin MD [facility] CPT-00117 Level 3 Est. Patient 09:54:41 CDT Checo Conklin MD [facility] CPT-68849 Level 3 Est. Patient 11:10:54 CDT Paul Hamlin MD [facility] CPT-99010 Level 3 Est. 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 Patient 17:09:26 CDT Dangelo arroyo MD [facility] CPT-40823 Level 3 Est. 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
--- OUTSIDE RECORDS SUMMARY | 2019-09-29 02:30 | XMS REPORT | Clinical Summary ---
[...] Carbuncle and furuncle of unspecified site FH DIABETES ICD-V18.0 Inactive Checo Conklin MD [...] Checo Joshua Mastalgia ICD-611.71 Inactive Checo Joshua FH BREAST CANCER ICD-V16.3 Inactive Checo Joshua Insect bite ICD-919.4 Inactive Checo Conklin MD Sinusitis ICD-461.9 Inactive Checo Conklin MD Medication List Medication Instructions Start Date Stop Date Generic Name NDC Status Provider Patient Instruction HYDROCODONE-ACETAMINOPHEN 5-325 MG TABS 1 po q 6hr PRN Pain HYDROCODONE-ACETAMINOPHEN 73452150982 Active Dangelo Rangel MD Active PHENAZOPYRIDINE HCL 200 MG TABS take 1 tab po TID for bladder pain PHENAZOPYRIDINE HCL 66872323127 Active Dangelo Rangel MD A ctive CIPRO 500 MG TAB 1 tablet by mouth twice daily CIPROFLOXACIN HCL 67882754430 No Longer Active Dangelo Rangel MD Active HYDROCODONE-ACETAMINOPHEN 5-325 MG TABS 1/2 to 1 po q 4 hour s prn cough HYDROCODONE-ACETAMINOPHEN 45181225440 No Longer Activ e Dangelo Rangel MD Active BACTRIM DS 800-160 MG TABS 1 po BID x 7 days 0 SULFAMETHOXAZOLE-TRIMETHOPRIM 02654375779 No Longer Active Checo Conklin MD Active PREDNISONE 20 MG TAB 2 tabs daily for 3 days, 1 t ab daily for 3 days, 1/2 tab daily for 2 days PREDNISONE 02394703060 No Longer Active Checo Conklin MD Active TRIAMCINOLONE ACETONIDE 0.1 % OINT Apply to affected a reas TID for up to 2 weeks TRIAMCINOLONE ACETONIDE 75005542452 No Longer A ctive Checo Conklin MD Active CEFDINIR 300 MG CAPS by mouth twice a day CEFDI JAZZY 21680294830 No Longer Active Dangelo Rangel MD Active CELEXA 20 MG TABS 1 tablet by mouth daily CITAL OPRAM HYDROBROMIDE 46528952977 Active Checo Conklin MD Active BUPROPION HCL (SMOKING DETER) 150 MG [id number] 1 a day for 1 week then 1 twice a day BUPROPION HCL (SMOKING DETER) 33726167902 No Lo nger Active Checo Conklin MD Active SIMVASTATIN 20 MG TABS 1 po qd SIMVASTATIN 5227298956 4 Active Checo Conklin MD Active CHANTIX STARTING MONTH KARTHIK 0.5 MG X 11 & 1 MG X 42 TAB S 0.5mg daily for 3 days, then 0.5mg BID for 4 days, then 1mg BID VARENICLINE TARTRATE 76026327130 No Longer Active Checo Conklin MD Activ e XANAX 0.5 MG TABS 1 po BID PRN anxiety ALPRAZOLAM 18695650858 Active Checo Conklin MD Active CONCERTA 18 MG CR-TABS 1 po q a.m. METHYLPHENID ATE HCL 71775644139 No Longer Active Checo Conklin MD Active REGLAN 10 MG TAB 1 po TID PRN Nausea METOCLOPRA MIDE HCL 94023209814 Active Checo Conklin MD Active AMBIEN 5 MG TAB 1 po qHS PRN Insomnia ZOLPIDEM TARTRATE 27618005078 Active Checo Conklin MD Active TRAZODONE HCL 100 MG TAB 0.5 to 1 po qHS PRN Insomnia TRAZODONE HCL 60945002386 No Longer Active Checo Conklin MD Acti ve FIORICET 325-50-40 MG TAB 1 tablet by mouth four times daily as needed [id number] 54203932715 No Longer Active Checo Conklin MD Active PHENERGAN CREAM* 25mg applied to wrist q6hr PRN Nausea PHENERGAN CREAM* No Longer Active Checo Conklin MD A ctive LAMISIL 250 MG TAB 1 po qd TERBINAFINE HCL 1350429545 1 Active Checo Conklin MD Active FLONASE 50 MCG/ACT SUSP 1 spray each nostril am and hs FLUTICASONE PROPIONATE 22917552465 No Longer Active Checo Conklin MD Activ e ANTIPYRINE-BENZOCAINE 5.4-1.4 % SOLN 1-2 drops in affected ear BENZOCAINE-ANTIPYRINE 45869959615 No Longer Active Checo Conklin MD Active CEFDINIR 300 MG CAPS 1 po bid CEFDINIR 40807479 120 No Longer Active Checo Conklin MD Active PREDNISONE 20 MG TAB 2 tabs daily for 3 days, 1 t ab daily for 3 days, 1/2 tab daily for 2 days PREDNISONE 02868240896 No Longer Active Aracelis Conklin MD Active AZITHROMYCIN 250 MG TABS 2 po qd x 1 day, then 1 po qd x 4 days AZITHROMYCIN 64241008838 No Longer Active Checo Conklin MD Active PREDNISONE 20 MG TAB 2 tabs daily for 3 days, 1 t ab daily for 3 days, 1/2 tab daily for 2 days PREDNISONE 34380221638 No Longer Active Checo Conklin MD Active ZITHROMAX Z-KARTHIK 250 MG TABS 2 today, then 1 daily for 4 days 201 09/18/28 AZITHROMYCIN 21575736798 No Longer Active Paul Hamlin MD Active FOCALIN XR 10 MG [id number] 1 po q a.m. D EXMETHYLPHENIDATE HCL 64343441129 No Longer Active Paul Hamlin MD Activ e PERCOCET 10-325 MG TABS 1 tablet every 6 hours as needed for pain OXYCODONE-ACETAMINOPHEN 94164819589 No Longer Active Paul Hamlin MD Active LORTAB 5 5-500 MG TABS 1/2 to 1 tablet by mouth flaquito ry 4 hours as needed for pain HYDROCODONE-ACETAMINOPHEN 49882593048 No Longer Active Checo Conklin MD Active FOCALIN XR 15 MG [id number] 1 po q a.m. D EXMETHYLPHENIDATE HCL 38966480252 No Longer Active Checo Conklin MD Activ e ZOFRAN ODT 4 MG TBDP 1 po q6hr PRN Nausea ONDAN SETRON 27713722191 No Longer Active Checo Conklin MD Active PERCOCET 5-325 MG TABS 1 tablet by mouth every 6 hours as needed OXYCODONE-ACETAMINOPHEN 49606876521 No Longer Active Checo Conklin MD Active PYRIDIUM 200 MG TABS take 1 tab po TID prn urinary pain. 0 PHENAZOPYRIDINE HCL 73968878922 No Longer Active Checo Conklin MD Active FLUCONAZOLE 150 MG TABS take 1 tab po qday once 04/06 FLUCONAZOLE 13882884877 No Longer Active Dangelo Rangel MD Acti ve CIPRO 500 MG TAB 1 tablet by mouth twice daily CIPROFLOXACIN HCL 33777331631 No Longer Active Dangelo Rangel MD Active PYRIDIUM 200 MG TABS take 1 tab po TID prn urinary pain. 0 PYRIDIUM 200 MG TABS 9224089 PHENAZOPYRIDINE HCL Inactive PERCOCET 5-325 MG TABS 1 tablet by mouth every 6 hours as needed PERCOCET 5-325 MG TABS 8160734 OXYCODONE-ACETAMINOPHEN I nactive ZOFRAN ODT 4 MG TBDP 1 po q6hr PRN Nausea ZOFRAN ODT 4 MG TBDP 560925 ONDANSETRON Inactive FOCALIN XR 15 MG [id number] 1 po q a.m. F OCALIN XR 15 MG [id number] DEXMETHYLPHENIDATE HCL Inactive LORTAB 5 5-500 MG TABS 1/2 to 1 tablet by mouth flaquito ry 4 hours as needed for pain LORTAB 5 5-500 MG TABS HYDROCODONE-A CETAMINOPHEN Inactive PERCOCET 10-325 MG TABS 1 tablet every 6 hours as needed for pain PERCOCET 10-325 MG TABS 1369535 OXYCODONE-ACETAMINOPHEN Inactive FOCALIN XR 10 MG [id number] 1 po q a.m. F OCALIN XR 10 MG [id number] DEXMETHYLPHENIDATE HCL Inactive CEFDINIR 300 MG CAPS 1 po bid CEFDINIR 300 MG CAPS 20 0346 CEFDINIR Inactive ANTIPYRINE-BENZOCAINE 5.4-1.4 % SOLN 1-2 drops in affected ear ANTIPYRINE-BENZOCAINE 5.4-1.4 % SOLN 645263 BENZOCAINE-ANTIPYRINE I nactive FLONASE 50 MCG/ACT SUSP 1 spray each nostril am and hs FLONASE 50 MCG/ACT SUSP 944460 FLUTICASONE PROPIONATE Inactive PHENERGAN CREAM* 25mg applied to wrist q6hr PRN Nausea PHENERGAN CREAM* Inactive FIORICET 325-50-40 MG TAB 1 tablet by mouth four times daily as needed FIORICET 325-50-40 MG TAB ACETAMINOPHEN-C AFF-BUTALBITAL Inactive TRAZODONE HCL 100 MG TAB 0.5 to 1 po qHS PRN Insomnia TRAZODONE HCL 100 MG TAB 963846 TRAZODONE HCL Inactive CONCERTA 18 MG CR-TABS [...] s prn cough HYDROCODONE-ACETAMINOPHEN 5-325 MG TABS 505065 HYDROCODONE-ACETAMINOPHEN Inactive CIPRO 500 MG TAB 1 tablet by mouth twice daily CIPRO 500 MG TAB 109822 CIPROFLOXACIN HCL Inactive FLUCONAZOLE 150 MG TABS take 1 tab po qday once 04/06 FLUCONAZOLE 150 MG TABS 269245 FLUCONAZOLE Inactive ZITHROMAX Z-KARTHIK 250 MG TABS 2 today, then 1 daily for 4 days 201 09/18/28 ZITHROMAX Z-KARTHIK 250 MG TABS 5628529 AZITHROMYCIN Inac tive PREDNISONE 20 MG TAB 2 tabs daily for 3 days, 1 t ab daily for 3 days, 1/2 tab daily for 2 days PREDNISONE 20 MG TAB 357099 PREDNISON E Inactive AZITHROMYCIN 250 MG TABS 2 po qd x 1 day, then 1 po qd x 4 days AZITHROMYCIN 250 MG TABS 9888168 AZITHROMYCIN Inactiv e PREDNISONE 20 MG TAB 2 tabs daily for 3 days, 1 t ab daily for 3 days, 1/2 tab daily for 2 days PREDNISONE 20 MG TAB 143116 PREDNISON E Inactive CEFDINIR 300 MG CAPS by mouth twice a day CEFDINIR 300 MG CAPS 952877 CEFDINIR Inactive TRIAMCINOLONE ACETONIDE 0.1 % OINT Apply to affected a reas TID for up to 2 weeks TRIAMCINOLONE ACETONIDE 0.1 % OINT 271010 6 TRIAMCINOLONE ACETONIDE Inactive PREDNISONE 20 MG TAB 2 tabs daily for 3 days, 1 t ab daily for 3 days, 1/2 tab daily for 2 days PREDNISONE 20 MG TAB 798710 PREDNISON E Inactive BACTRIM DS 800-160 MG TABS 1 po BID x 7 days 0 BACTRIM DS 800-160 MG TABS SULFAMETHOXAZOLE-TRIMETHOPRIM Inactive CIPRO 500 MG TAB 1 tablet by mouth twice daily CIPRO 500 MG TAB 940484 CIPROFLOXACIN HCL Inactive Immunizations Vaccine Administration Date Value Standard [...] Panel - Chemistry sodium, serum 139 mmol/L 121-469 6538/10/24 potassium, serum 4.1 mmol/L 3.5-5.2 chloride, serum [...] 0.80 mg/dL 0.00-1.00 cholesterol, serum 147 mg/dL 302-754 4554/10/24 triglyceride, serum, fasting 112 mg/dL 30-200 HDL cholesterol, serum 40 mg/dL 32-96 LDL cholesterol, serum 85 mg/dL 0-130 Lab Report: HGBA1C, CBC W/DIFF, Comp. Me tabolic Panel, Lipid Panel - Chemistry sodium, serum 139 mmol/L 104-631 4801/01/09 potassium, serum 4.3 mmol/L 3.5-5.2 chloride, serum [...] 1.10 mg/dL 0.00-1.00 cholesterol, serum 222 mg/dL 300-544 0226/01/09 triglyceride, serum, fasting 92 mg/dL 30-200 HDL [...] Clear Encounters Code Encounter Date Provider Facility CPT-84935 Level 3 Est. Patient 12:29:32 CDT Dangelo arroyo MD [facility] CPT-30463 Level 3 Est. Patient 16:53:02 CDT Checo Conklin MD [facility] CPT-62841 Level 3 Est. Patient 16:37:13 CDT Checo Conklin MD [facility] CPT-42177 Level 3 Est. Patient 16:16:59 CDT Paul Hamlin MD [facility] CPT-49620 Level 3 Est. Patient 14:20:13 CDT Dangelo arroyo MD [facility] CPT-20810 Level 4 Est. Patient 11:29:33 CDT Checo Conklin MD [facility] CPT-74729 Level 3 Est. Patient 17:08:31 CDT Checo Conklin MD [facility] CPT-69299 Level 3 Est. 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 Patient 09:26:08 LIQUOR GALLERY OPERATOR Checo Conklin MD [facility] CPT-95754 Level 3 Est. Patient 11:37:10 CDT Checo Conklin MD [facility] CPT-60190 Level 4 Est. Patient 14:07:38 CDT Checo Conklin MD [facility] CPT-72038 Level 3 Est. Patient 09:54:41 CDT Checo Conklin MD [facility] CPT-48867 Level 3 Est. Patient 11:10:54 CDT Paul Hamlin MD [facility] CPT-93361 Level 3 Est. Patient 14:16:56 LIQUOR GALLERY OPERATOR Checo Conklin MD [facility] CPT-60269 Level 3 Est. Patient 11:04:11 LIQUOR GALLERY OPERATOR Checo Conklin MD [facility] CPT-10749 Level 3 Est. Patient 17:09:26 CDT Dangelo arroyo MD [facility] CPT-71406 Level 3 Est. Patient 16:54:37 CDT Checo Conklin MD [facility] Procedures Code Procedure Name Date Entry Date Standard Desc ription CPT-OV Office Visit 11:31:28 CDT CPT-14745 Tubersol 09:39:29 CDT CPT-J2550 Phenergan 25 mg (Promethazine) 13:59:02 LIQUOR GALLERY OPERATOR CPT-J1885 Toradol 60 mg (Ketorolac) 13:59:02 LIQUOR GALLERY OPERATOR 2012
--- OUTSIDE RECORDS SUMMARY | 2019-09-29 02:31 | XMS REPORT | Clinical Summary ---
Author Author Admin, Bethany Gonzales Organization [facility] Address Unknown Phone Unavailable Allergies, Adverse [...] furuncle of unspecified site BRONCHITIS, ACUTE 466.0 Active Checo Conklin MD Acute bronchitis Abdominal pain 789.00 Active Thomas Marks DO Abdominal pain, unspecified site FH DIABETES ICD-V18.0 Inactive Checo Conklin MD 201 08/27/26 CONCUSSION ICD-850.9 Inactive Checo Joshua UTI ICD-599.0 Inactive Checo Conklin MD 2013 ABDOMINAL PAIN RIGHT LOWER QUADRANT ICD-789.03 Inactive Checo Conklin MD HEADACHE, TENSION ICD-307.81 Inactive Checo Conklin MD FH BREAST CANCER ICD-V16.3 Inactive Checo Joshua OTITIS MEDIA-RIGHT ICD-382.9 Inactive Checo Conklin MD Onychomycosis, toenails ICD-110.1 Inactive Aracelis Conklin MD Hypoglycemia, unspecified ICD-251.2 Inactive Checo Conklin MD Insomnia ICD-780.52 Inactive Checo Joshua PHARYNGITIS ICD-462 Inactive Checo Conklin MD Sinusitis ICD-461.9 Inactive Checo Conklin MD Insect bite ICD-919.4 Inactive Checo Conklin MD Carbuncle/furuncle NOS ICD-680.9 Inactive Hilaria Conklin MD Mastalgia ICD-611.71 Inactive Checo Joshua Medication List Medication Instructions Start Date Stop Date Generic Name NDC Status Provider Patient Instruction AZITHROMYCIN 250 MG TABS 2 po qd x 1 day, then 1 po qd x 4 days AZITHROMYCIN 68145769351 No Longer Active Checo Conklin MD Active HYDROCODONE-ACETAMINOPHEN 5-325 MG TABS 1 po q 6hr PRN Pain 2013 HYDROCODONE-ACETAMINOPHEN 69384596002 No Longer Active Lenora Conklin MD Active PHENAZOPYRIDINE HCL 200 MG TABS take 1 tab po TID for bladder pa in PHENAZOPYRIDINE HCL 79750557969 No Longer Active Checo Joshua Active CIPRO 500 MG TAB 1 tablet by mouth twice daily CIPROFLOXACIN HCL 81175964493 No Longer Active Dangelo Rangel MD Active HYDROCODONE-ACETAMINOPHEN 5-325 MG TABS 1/2 to 1 po q 4 hour s prn cough HYDROCODONE-ACETAMINOPHEN 76488846497 No Longer Activ e Dangelo Rangel MD Active BACTRIM DS 800-160 MG TABS 1 po BID x 7 days 0 SULFAMETHOXAZOLE-TRIMETHOPRIM 48108183644 No Longer Active Checo Conklin MD Active PREDNISONE 20 MG TAB 2 tabs daily for 3 days, 1 t ab daily for 3 days, 1/2 tab daily for 2 days PREDNISONE 85950487832 No Longer Active Checo Conklin MD Active TRIAMCINOLONE ACETONIDE 0.1 % OINT Apply to affected a reas TID for up to 2 weeks TRIAMCINOLONE ACETONIDE 47299731712 No Longer A ctive Checo Conklin MD Active CEFDINIR 300 MG CAPS by mouth twice a day CEFDI JAZZY 05849065780 No Longer Active Dangelo Rangel MD Active CELEXA 20 MG TABS 1 tablet by mouth daily CITAL OPRAM HYDROBROMIDE 60547163023 Active Checo Conklin MD Active BUPROPION HCL (SMOKING DETER) 150 MG [id number] 1 a day for 1 week then 1 twice a day BUPROPION HCL (SMOKING DETER) 38797642450 No Lo nger Active Checo Conklin MD Active SIMVASTATIN 20 MG TABS 1 po qd SIMVASTATIN 2513601592 5 Active Checo Conklin MD Active CHANTIX STARTING MONTH KARTHIK 0.5 MG X 11 & 1 MG X 42 TAB S 0.5mg daily for 3 days, then 0.5mg BID for 4 days, then 1mg BID VARENICLINE TARTRATE 18853325603 No Longer Active Checo Conklin MD Activ e XANAX 0.5 MG TABS 1 po BID PRN anxiety ALPRAZOLAM 63235199096 Active Checo Conklin MD Active CONCERTA 18 MG CR-TABS 1 po q a.m. METHYLPHENID ATE HCL 93640415866 No Longer Active Checo Conklin MD Active REGLAN 10 MG TAB 1 po TID PRN Nausea METOCLOPRA MIDE HCL 88697749883 Active Checo Conklin MD Active AMBIEN 5 MG TAB 1 po qHS PRN Insomnia ZOLPIDEM TARTRATE 12760266339 Active Checo Conklin MD Active TRAZODONE HCL 100 MG TAB 0.5 to 1 po qHS PRN Insomnia TRAZODONE HCL 28911924924 No Longer Active Checo Conklin MD Acti ve FIORICET 325-50-40 MG TAB 1 tablet by mouth four times daily as needed [id number] 55709547519 No Longer Active Checo Conklin MD Active PHENERGAN CREAM* 25mg applied to wrist q6hr PRN Nausea PHENERGAN CREAM* No Longer Active Checo Conklin MD A ctive LAMISIL 250 MG TAB 1 po qd TERBINAFINE HCL 9809894749 1 Active Checo Conklin MD Active FLONASE 50 MCG/ACT SUSP 1 spray each nostril am and hs FLUTICASONE PROPIONATE 77258019348 No Longer Active Checo Conklin MD Activ e ANTIPYRINE-BENZOCAINE 5.4-1.4 % SOLN 1-2 drops in affected ear BENZOCAINE-ANTIPYRINE 03110643802 No Longer Active Checo Conklin MD Active CEFDINIR 300 MG CAPS 1 po bid CEFDINIR 04659039 120 No Longer Active Checo Conklin MD Active PREDNISONE 20 MG TAB 2 tabs daily for 3 days, 1 t ab daily for 3 days, 1/2 tab daily for 2 days PREDNISONE 95152843418 No Longer Active Aracelis Conklin MD Active AZITHROMYCIN 250 MG TABS 2 po qd x 1 day, then 1 po qd x 4 days AZITHROMYCIN 91477999448 No Longer Active Checo Conklin MD Active PREDNISONE 20 MG TAB 2 tabs daily for 3 days, 1 t ab daily for 3 days, 1/2 tab daily for 2 days PREDNISONE 85420677452 No Longer Active Checo Conklin MD Active ZITHROMAX Z-KARTHIK 250 MG TABS 2 today, then 1 daily for 4 days 201 09/18/28 AZITHROMYCIN 82321880772 No Longer Active Paul Hamlin MD Active FOCALIN XR 10 MG [id number] 1 po q a.m. D EXMETHYLPHENIDATE HCL 14681846989 No Longer Active Paul Hamlin MD Activ e PERCOCET 10-325 MG TABS 1 tablet every 6 hours as needed for pain OXYCODONE-ACETAMINOPHEN 20240396654 No Longer Active Paul Hamlin MD Active LORTAB 5 5-500 MG TABS 1/2 to 1 tablet by mouth flaquito ry 4 hours as needed for pain HYDROCODONE-ACETAMINOPHEN 63898069951 No Longer Active Checo Conklin MD Active FOCALIN XR 15 MG [id number] 1 po q a.m. D EXMETHYLPHENIDATE HCL 24483822537 No Longer Active Checo Conklin MD Activ e ZOFRAN ODT 4 MG TBDP 1 po q6hr PRN Nausea ONDAN SETRON 17837476946 No Longer Active Checo Conklin MD Active PERCOCET 5-325 MG TABS 1 tablet by mouth every 6 hours as needed OXYCODONE-ACETAMINOPHEN 24296487130 No Longer Active Checo Conklin MD Active PYRIDIUM 200 MG TABS take 1 tab po TID prn urinary pain. 0 PHENAZOPYRIDINE HCL 29677914127 No Longer Active Checo Conklin MD Active FLUCONAZOLE 150 MG TABS take 1 tab po qday once 04/06 FLUCONAZOLE 77789214343 No Longer Active Dangelo Rangel MD Acti ve CIPRO 500 MG TAB 1 tablet by mouth twice daily CIPROFLOXACIN HCL 78743346850 No Longer Active Dangelo Rangel MD Active PYRIDIUM 200 MG TABS take 1 tab po TID prn urinary pain. 0 PYRIDIUM 200 MG TABS 3507819 PHENAZOPYRIDINE HCL Inactive PERCOCET 5-325 MG TABS 1 tablet by mouth every 6 hours as needed PERCOCET 5-325 MG TABS 5328336 OXYCODONE-ACETAMINOPHEN I nactive ZOFRAN ODT 4 MG TBDP 1 po q6hr PRN Nausea ZOFRAN ODT 4 MG TBDP 551209 ONDANSETRON Inactive FOCALIN XR 15 MG [id number] 1 po q a.m. F OCALIN XR 15 MG [id number] DEXMETHYLPHENIDATE HCL Inactive LORTAB 5 5-500 MG TABS 1/2 to 1 tablet by mouth flaquito ry 4 hours as needed for pain LORTAB 5 5-500 MG TABS HYDROCODONE-A CETAMINOPHEN Inactive PERCOCET 10-325 MG TABS 1 tablet every 6 hours as needed for pain PERCOCET 10-325 MG TABS 8584850 OXYCODONE-ACETAMINOPHEN Inactive FOCALIN XR 10 MG [id number] 1 po q a.m. F OCALIN XR 10 MG AZ15A-UOU DEXMETHYLPHENIDATE HCL Inactive CEFDINIR 300 MG CAPS 1 po bid CEFDINIR 300 MG CAPS 20 0346 CEFDINIR Inactive ANTIPYRINE-BENZOCAINE 5.4-1.4 % SOLN 1-2 drops in affected ear ANTIPYRINE-BENZOCAINE 5.4-1.4 % SOLN 356528 BENZOCAINE-ANTIPYRINE I nactive FLONASE 50 MCG/ACT SUSP 1 spray each nostril am and hs FLONASE 50 MCG/ACT SUSP 221961 FLUTICASONE PROPIONATE Inactive PHENERGAN CREAM* 25mg applied to wrist q6hr PRN Nausea PHENERGAN CREAM* Inactive FIORICET 325-50-40 MG TAB 1 tablet by mouth four times daily as needed FIORICET 325-50-40 MG TAB ACETAMINOPHEN-C AFF-BUTALBITAL Inactive TRAZODONE HCL 100 MG TAB 0.5 to 1 po qHS PRN Insomnia TRAZODONE HCL 100 MG TAB 633891 TRAZODONE HCL Inactive CONCERTA 18 MG CR-TABS [...] s prn cough HYDROCODONE-ACETAMINOPHEN 5-325 MG TABS 381609 HYDROCODONE-ACETAMINOPHEN Inactive PHENAZOPYRIDINE HCL 200 MG TABS take 1 tab po TID for bladder pa in PHENAZOPYRIDINE HCL 200 MG TABS 5444394 PHENAZOPYRIDINE HCL Inactive HYDROCODONE-ACETAMINOPHEN 5-325 MG TABS 1 po q 6hr PRN Pain 2013 HYDROCODONE-ACETAMINOPHEN 5-325 MG TABS 361072 HYDROCODONE-ACETAMINOPHEN Inactive CIPRO 500 MG TAB 1 tablet by mouth twice daily CIPRO 500 MG TAB 730185 CIPROFLOXACIN HCL Inactive FLUCONAZOLE 150 MG TABS take 1 tab po qday once 04/06 FLUCONAZOLE 150 MG TABS 554169 FLUCONAZOLE Inactive ZITHROMAX Z-KARTHIK 250 MG TABS 2 today, then 1 daily for 4 days 201 09/18/28 ZITHROMAX Z-KARTHIK 250 MG TABS 6887530 AZITHROMYCIN Inac tive PREDNISONE 20 MG TAB 2 tabs daily for 3 days, 1 t ab daily for 3 days, 1/2 tab daily for 2 days PREDNISONE 20 MG TAB 847533 PREDNISON E Inactive AZITHROMYCIN 250 MG TABS 2 po qd x 1 day, then 1 po qd x 4 days AZITHROMYCIN 250 MG TABS 9229696 AZITHROMYCIN Inactiv e PREDNISONE 20 MG TAB 2 tabs daily for 3 days, 1 t ab daily for 3 days, 1/2 tab daily for 2 days PREDNISONE 20 MG TAB 662465 PREDNISON E Inactive CEFDINIR 300 MG CAPS by mouth twice a day CEFDINIR 300 MG CAPS 620713 CEFDINIR Inactive TRIAMCINOLONE ACETONIDE 0.1 % OINT Apply to affected a reas TID for up to 2 weeks TRIAMCINOLONE ACETONIDE 0.1 % OINT 728636 6 TRIAMCINOLONE ACETONIDE Inactive PREDNISONE 20 MG TAB 2 tabs daily for 3 days, 1 t ab daily for 3 days, 1/2 tab daily for 2 days PREDNISONE 20 MG TAB 015804 PREDNISON E Inactive BACTRIM DS 800-160 MG TABS 1 po BID x 7 days 0 BACTRIM DS 800-160 MG TABS SULFAMETHOXAZOLE-TRIMETHOPRIM Inactive CIPRO 500 MG TAB 1 tablet by mouth twice daily CIPRO 500 MG TAB 438192 CIPROFLOXACIN HCL Inactive AZITHROMYCIN 250 MG TABS 2 po qd x 1 day, then 1 po qd x 4 days AZITHROMYCIN 250 MG TABS 6753019 AZITHROMYCIN Inactiv e Immunizations Vaccine Administration Date [...] Comp. Metabolic Panel, Lipid Panel - Chemistry blood glucose 78 mg/dL 65-110 carbon dioxide, venous blood 30.9 mmol/L 21.0-32 .0 chloride, serum 102 mmol/L 98-107 potassium, serum 4.1 mmol/L 3.5-5.2 sodium, serum 139 mmol/L 973-142 5216/10/24 urea nitrogen, blood 11 mg/dL 7-18 creatinine, serum 0.70 mg/dL 0.60-1.30 alanine aminotransferase (SGPT), serum 12 U/L 12-78 aspartate aminotransferase (SGOT), serum 14 U/L 15-37 alkaline phosphatase, serum 64 U/L 50-136 calcium, serum 8.6 mg/dL 8.5-10.1 bilirubin, serum, total 0.80 mg/dL 0.00-1.00 cholesterol, serum 147 mg/dL 887-305 7451/10/24 triglyceride, serum, fasting 112 mg/dL 30-200 HDL [...] Clear Encounters Code Encounter Date Provider Facility CPT-13745 Level 3 Est. 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 Patient 13:34:17 PUNCH MACHINE OPERATOR Checo Conklin MD [facility] CPT-40769 Level 3 Est. Patient 12:29:32 CDT Dangelo arroyo MD [facility]-66913 Level 3 Est. Patient 16:53:02 CDT Checo Conklin MD [facility] CPT-43896 Level 3 Est. Patient 16:37:13 CDT Checo Conklin MD [facility] CPT-07653 Level 3 Est. Patient 16:16:59 CDT Paul Hamlin MD [facility]-56208 Level 3 Est. Patient 14:20:13 CDT Dangelo arroyo MD [facility] CPT-05196 Level 4 Est. Patient 11:29:33 CDT Checo Conklin MD [facility] CPT-10735 Level 3 Est. Patient 17:08:31 CDT Checo Conklin MD [facility] CPT-64092 Level 3 Est. Patient 16:50:42 PUNCH MACHINE OPERATOR Checo Conklin MD [facility] CPT-08782 Level 4 Est. Patient 09:26:08 PUNCH MACHINE OPERATOR Checo Conklin MD [facility]-86232 Level 3 Est. Patient 11:37:10 CDT Checo Conklin MD [facility] CPT-14212 Level 4 Est. Patient 14:07:38 CDT Checo Conklin MD [facility] CPT-89184 Level 3 Est. Patient 09:54:41 CDT Checo Conklin MD [facility] CPT-53372 Level 3 Est. Patient 11:10:54 CDT Paul Hamlin MD [facility] CPT-26258 Level 3 Est. Patient 14:16:56 PUNCH MACHINE OPERATOR Checo Conklin MD [facility] CPT-88251 Level 3 Est. Patient 11:04:11 PUNCH MACHINE OPERATOR Checo Conklin MD [facility] CPT-80698 Level 3 Est. Patient 17:09:26 CDT Dangelo arroyo MD [facility] CPT-07056 Level 3 Est. Patient 16:54:37 CDT Checo Conklin MD [facility] Procedures Code Procedure Name Date Entry Date Standard Desc ription CPT-OV Office Visit 11:31:28 CDT CPT-44989 Tubersol 09:39:29 CDT CPT-J2550 Phenergan 25 mg (Promethazine) 13:59:02 PUNCH MACHINE OPERATOR CPT-J1885 Toradol 60 mg (Ketorolac) 13:59:02 PUNCH MACHINE OPERATOR 2012
--- OUTSIDE RECORDS SUMMARY | 2019-09-29 02:31 | XMS REPORT | Clinical Summary ---
Author Author Admin, Bethany Ayala [facility] Address Unknown Phone Unavailable Allergies, Adverse Reactions, [...] mouth every 6 hours as needed HYDROCODONE-ACETAMINOPHEN 52307395810 Active Checo Conklin MD Active DICLOFENAC SODIUM 75 MG TBEC 1 tablet by mouth twice daily P RN Knee pain DICLOFENAC SODIUM 17069456164 Active Checo Conklin MD Active LAMISIL 250 MG TAB 1 po qd TERBINAFINE HCL 548 87513670 No Longer Active Checo Conklin MD Active REGLAN 10 MG TAB 1 po TID PRN Nausea METOCLOPRA MIDE HCL 59075811656 No Longer Active Checo Conklin MD Active CELEXA 20 MG TABS 1 tablet by mouth daily CITALOPRAM HYDROBROMIDE 05985768364 No Longer Active Checo Conklin MD Activ e AZITHROMYCIN 250 MG TABS 2 po qd x 1 day, then 1 po qd x 4 days AZITHROMYCIN 01160996900 No Longer Active Checo Conklin MD Active HYDROCODONE-ACETAMINOPHEN 5-325 MG TABS 1 po q 6hr PRN Pain 2013 HYDROCODONE-ACETAMINOPHEN 24687362130 No Longer Active Lenora Conklin MD Active PHENAZOPYRIDINE HCL 200 MG TABS take 1 tab po TID for bladder pa in PHENAZOPYRIDINE HCL 13005013376 No Longer Active Checo Joshua Active CIPRO 500 MG TAB 1 tablet by mouth twice daily CIPROFLOXACIN HCL 19634735165 No Longer Active Dangelo Rangel MD Active HYDROCODONE-ACETAMINOPHEN 5-325 MG TABS 1/2 to 1 po q 4 hour s prn cough HYDROCODONE-ACETAMINOPHEN 48773714425 No Longer Activ e Dangelo Rangel MD Active BACTRIM DS 800-160 MG TABS 1 po BID x 7 days 0 SULFAMETHOXAZOLE-TRIMETHOPRIM 51543508004 No Longer Active Checo Conklin MD Active PREDNISONE 20 MG TAB 2 tabs daily for 3 days, 1 t ab daily for 3 days, 1/2 tab daily for 2 days PREDNISONE 12787271196 No Longer Active Checo Conklin MD Active TRIAMCINOLONE ACETONIDE 0.1 % OINT Apply to affected a reas TID for up to 2 weeks TRIAMCINOLONE ACETONIDE 65632640144 No Longer A ctive Checo Conklin MD Active CEFDINIR 300 MG CAPS by mouth twice a day CEFDI JAZZY 39724491443 No Longer Active Dangelo Rangle MD Active BUPROPION HCL (SMOKING DETER) 150 MG [id number] 1 a day for 1 week then 1 twice a day BUPROPION HCL (SMOKING DETER) 91624596435 No Lo nger Active Checo Conklin MD Active SIMVASTATIN 20 MG TABS 1 po qd SIMVASTATIN 8347412689 5 Active Checo Conklin MD Active CHANTIX STARTING MONTH KARTHIK 0.5 MG X 11 & 1 MG X 42 TAB S 0.5mg daily for 3 days, then 0.5mg BID for 4 days, then 1mg BID VARENICLINE TARTRATE 78825298084 No Longer Active Checo Conklin MD Activ e XANAX 0.5 MG TABS 1 po BID PRN anxiety ALPRAZOLAM 19381749884 Active Checo Conklin MD Active CONCERTA 18 MG CR-TABS 1 po q a.m. METHYLPHENID ATE HCL 77373901984 No Longer Active Checo Conklin MD Active AMBIEN 5 MG TAB 1 po qHS PRN Insomnia ZOLPIDEM TARTRATE 81556240528 Active Checo Conklin MD Active TRAZODONE HCL 100 MG TAB 0.5 to 1 po qHS PRN Insomnia TRAZODONE HCL 83737985407 No Longer Active Checo Conklin MD Acti ve FIORICET 325-50-40 MG TAB 1 tablet by mouth four times daily as needed [id number] 42104060334 No Longer Active Checo Conklin MD Active PHENERGAN CREAM* 25mg applied to wrist q6hr PRN Nausea PHENERGAN CREAM* No Longer Active Checo Gonzales ctive FLONASE 50 MCG/ACT SUSP 1 spray each nostril am and hs FLUTICASONE PROPIONATE 05550480186 No Longer Active Checo Conklin MD Activ e ANTIPYRINE-BENZOCAINE 5.4-1.4 % SOLN 1-2 drops in affected ear BENZOCAINE-ANTIPYRINE 60159398294 No Longer Active Checo Conklin MD Active CEFDINIR 300 MG CAPS 1 po bid CEFDINIR 41473658 120 No Longer Active Checo Conklin MD Active PREDNISONE 20 MG TAB 2 tabs daily for 3 days, 1 t ab daily for 3 days, 1/2 tab daily for 2 days PREDNISONE 54527917508 No Longer Active Aracelis Conklin MD Active AZITHROMYCIN 250 MG TABS 2 po qd x 1 day, then 1 po qd x 4 days AZITHROMYCIN 13520617186 No Longer Active Checo Conklin MD Active PREDNISONE 20 MG TAB 2 tabs daily for 3 days, 1 t ab daily for 3 days, 1/2 tab daily for 2 days PREDNISONE 08944758781 No Longer Active Checo Conklin MD Active ZITHROMAX Z-KARTHIK 250 MG TABS 2 today, then 1 daily for 4 days 201 09/18/28 AZITHROMYCIN 60797632793 No Longer Active Paul Hamlin MD Active FOCALIN XR 10 MG [id number] 1 po q a.m. D EXMETHYLPHENIDATE HCL 00146776055 No Longer Active Paul Hamlin MD Activ e PERCOCET 10-325 MG TABS 1 tablet every 6 hours as needed for pain OXYCODONE-ACETAMINOPHEN 30440501521 No Longer Active Paul Hamlin MD Active LORTAB 5 5-500 MG TABS 1/2 to 1 tablet by mouth flaquito ry 4 hours as needed for pain HYDROCODONE-ACETAMINOPHEN 94706252412 No Longer Active Checo Conklin MD Active FOCALIN XR 15 MG [id number] 1 po q a.m. D EXMETHYLPHENIDATE HCL 94019861615 No Longer Active Checo Conklin MD Activ e ZOFRAN ODT 4 MG TBDP 1 po q6hr PRN Nausea ONDAN SETRON 88468816536 No Longer Active Checo Conklin MD Active PERCOCET 5-325 MG TABS 1 tablet by mouth every 6 hours as needed OXYCODONE-ACETAMINOPHEN 02871357206 No Longer Active Checo Conklin MD Active PYRIDIUM 200 MG TABS take 1 tab po TID prn urinary pain. 0 PHENAZOPYRIDINE HCL 79005512555 No Longer Active Checo Conklin MD Active FLUCONAZOLE 150 MG TABS take 1 tab po qday once 04/06 FLUCONAZOLE 21649447108 No Longer Active Dangelo Rangel MD Acti ve CIPRO 500 MG TAB 1 tablet by mouth twice daily CIPROFLOXACIN HCL 90073786165 No Longer Active Dangelo Rangel MD Active PYRIDIUM 200 MG TABS take 1 tab po TID prn urinary pain. 0 PYRIDIUM 200 MG TABS 3449042 PHENAZOPYRIDINE HCL Inactive PERCOCET 5-325 MG TABS 1 tablet by mouth every 6 hours as needed PERCOCET 5-325 MG TABS 6096979 OXYCODONE-ACETAMINOPHEN I nactive ZOFRAN ODT 4 MG TBDP 1 po q6hr PRN Nausea ZOFRAN ODT 4 MG TBDP 513182 ONDANSETRON Inactive FOCALIN XR 15 MG [id number] 1 po q a.m. F OCALIN XR 15 MG [id number] DEXMETHYLPHENIDATE HCL Inactive LORTAB 5 5-500 MG TABS 1/2 to 1 tablet by mouth flaquito ry 4 hours as needed for pain LORTAB 5 5-500 MG TABS HYDROCODONE-A CETAMINOPHEN Inactive PERCOCET 10-325 MG TABS 1 tablet every 6 hours as needed for pain PERCOCET 10-325 MG TABS 1759013 OXYCODONE-ACETAMINOPHEN Inactive FOCALIN XR 10 MG [id number] 1 po q a.m. F OCALIN XR 10 MG [id number] DEXMETHYLPHENIDATE HCL Inactive CEFDINIR 300 MG CAPS 1 po bid CEFDINIR 300 MG CAPS 20 0346 CEFDINIR Inactive ANTIPYRINE-BENZOCAINE 5.4-1.4 % SOLN 1-2 drops in affected ear ANTIPYRINE-BENZOCAINE 5.4-1.4 % SOLN 802981 BENZOCAINE-ANTIPYRINE I nactive FLONASE 50 MCG/ACT SUSP 1 spray each nostril am and hs FLONASE 50 MCG/ACT SUSP 985424 FLUTICASONE PROPIONATE Inactive PHENERGAN CREAM* 25mg applied to wrist q6hr PRN Nausea PHENERGAN CREAM* Inactive FIORICET 325-50-40 MG TAB 1 tablet by mouth four times daily as needed FIORICET 325-50-40 MG TAB ACETAMINOPHEN-C AFF-BUTALBITAL Inactive TRAZODONE HCL 100 MG TAB 0.5 to 1 po qHS PRN Insomnia TRAZODONE HCL 100 MG TAB 732663 TRAZODONE HCL Inactive CONCERTA 18 MG CR-TABS [...] s prn cough HYDROCODONE-ACETAMINOPHEN 5-325 MG TABS 103646 HYDROCODONE-ACETAMINOPHEN Inactive PHENAZOPYRIDINE HCL 200 MG TABS take 1 tab po TID for bladder pa in PHENAZOPYRIDINE HCL 200 MG TABS 5793420 PHENAZOPYRIDINE HCL Inactive HYDROCODONE-ACETAMINOPHEN 5-325 MG TABS 1 po q 6hr PRN Pain 2013 HYDROCODONE-ACETAMINOPHEN 5-325 MG TABS 642976 HYDROCODONE-ACETAMINOPHEN Inactive CELEXA 20 MG TABS 1 tablet by mouth daily CELEXA 20 MG TABS 699505 CITALOPRAM HYDROBROMIDE Inactive REGLAN 10 MG TAB 1 po TID PRN Nausea REGLAN 10 MG TAB 642887 METOCLOPRAMIDE HCL Inactive LAMISIL 250 MG TAB 1 po qd LAMISIL 250 MG TAB 007794 TERBINAFINE HCL Inactive CIPRO 500 MG TAB 1 tablet by mouth twice daily CIPRO 500 MG TAB 511795 CIPROFLOXACIN HCL Inactive FLUCONAZOLE 150 MG TABS take 1 tab po qday once 04/06 FLUCONAZOLE 150 MG TABS 636287 FLUCONAZOLE Inactive ZITHROMAX Z-KARTHIK 250 MG TABS 2 today, then 1 daily for 4 days 201 09/18/28 ZITHROMAX Z-KARTHIK 250 MG TABS 0837788 AZITHROMYCIN Inac tive PREDNISONE 20 MG TAB 2 tabs daily for 3 days, 1 t ab daily for 3 days, 1/2 tab daily for 2 days PREDNISONE 20 MG TAB 758587 PREDNISON E Inactive AZITHROMYCIN 250 MG TABS 2 po qd x 1 day, then 1 po qd x 4 days AZITHROMYCIN 250 MG TABS 6250678 AZITHROMYCIN Inactiv e PREDNISONE 20 MG TAB 2 tabs daily for 3 days, 1 t ab daily for 3 days, 1/2 tab daily for 2 days PREDNISONE 20 MG TAB 509294 PREDNISON E Inactive CEFDINIR 300 MG CAPS by mouth twice a day CEFDINIR 300 MG CAPS 307872 CEFDINIR Inactive TRIAMCINOLONE ACETONIDE 0.1 % OINT Apply to affected a reas TID for up to 2 weeks TRIAMCINOLONE ACETONIDE 0.1 % OINT 464190 6 TRIAMCINOLONE ACETONIDE Inactive PREDNISONE 20 MG TAB 2 tabs daily for 3 days, 1 t ab daily for 3 days, 1/2 tab daily for 2 days PREDNISONE 20 MG TAB 728340 PREDNISON E Inactive BACTRIM DS 800-160 MG TABS 1 po BID x 7 days 0 BACTRIM DS 800-160 MG TABS SULFAMETHOXAZOLE-TRIMETHOPRIM Inactive CIPRO 500 MG TAB 1 tablet by mouth twice daily CIPRO 500 MG TAB 872979 CIPROFLOXACIN HCL Inactive AZITHROMYCIN 250 MG TABS 2 po qd x 1 day, then 1 po qd x 4 days AZITHROMYCIN 250 MG TABS 4633747 AZITHROMYCIN Inactiv e Immunizations Vaccine Administration Date [...] Panel - Chemistry sodium, serum 139 mmol/L 912-616 4819/10/24 potassium, serum 4.1 mmol/L 3.5-5.2 chloride, serum [...] 0.80 mg/dL 0.00-1.00 cholesterol, serum 147 mg/dL 994-883 7135/10/24 triglyceride, serum, fasting 112 mg/dL 30-200 HDL [...] 5.0-8.5 Encounters Code Encounter Date Provider Facility CPT-85126 Level 3 Est. Patient 14:38:41 CDT Checo Conklin MD [facility] CPT-36095 Level 3 Est. Patient 15:22:03 GLOVE BRUSHER Thomas reynolds DO [facility] CPT-90731 Level 3 Est. Patient 13:34:17 GLOVE BRUSHER Checo Conklin MD [facility] CPT-35332 Level 3 Est. Patient 12:29:32 CDT Dangelo arroyo MD [facility] CPT-61624 Level 3 Est. Patient 16:53:02 CDT Checo Conklin MD [facility] CPT-43419 Level 3 Est. Patient 16:37:13 CDT Checo Conklin MD [facility] CPT-47500 Level 3 Est. Patient 16:16:59 CDT Paul Hamlin MD [facility] CPT-89136 Level 3 Est. Patient 14:20:13 CDT Dangelo arroyo MD [facility] CPT-68590 Level 4 Est. Patient 11:29:33 CDT Checo Conklin MD [facility] CPT-78433 Level 3 Est. Patient 17:08:31 CDT Checo Conklin MD [facility] CPT-85119 Level 3 Est. Patient 16:50:42 GLOVE BRUSHER Checo Conklin MD [facility] CPT-47461 Level 4 Est. Patient 09:26:08 GLOVE BRUSHER Checo Conklin MD [facility] CPT-84689 Level 3 Est. Patient 11:37:10 CDT Checo Conklin MD [facility] CPT-16078 Level 4 Est. Patient 14:07:38 CDT Checo Conklin MD [facility] CPT-58913 Level 3 Est. Patient 09:54:41 CDT Checo Conklin MD [facility] CPT-76153 Level 3 Est. Patient 11:10:54 CDT Paul Hamlin MD [facility] CPT-32453 Level 3 Est. Patient 14:16:56 GLOVE BRUSHER Checo Conklin MD [facility] CPT-24354 Level 3 Est. Patient 11:04:11 GLOVE BRUSHER Checo Conklin MD [facility] CPT-49474 Level 3 Est. Patient 17:09:26 CDT Dangelo arroyo MD [facility] CPT-89799 Level 3 Est. Patient 16:54:37 CDT Checo Conklin MD [facility] Procedures Code Procedure Name Date Entry Date Standard Desc ription CPT-OV Office Visit 11:31:28 CDT CPT-10716 Tubersol 09:39:29 CDT CPT-J2550 Phenergan 25 mg (Promethazine) 13:59:02 GLOVE BRUSHER CPT-J1885 Toradol 60 mg (Ketorolac) 13:59:02 GLOVE BRUSHER 2012
--- OUTSIDE RECORDS SUMMARY | 2019-09-29 02:31 | XMS REPORT | Clinical Summary ---
[...] mention of infection Carbuncle/furuncle NOS 680.9 Resolved Leonra Conklin MD Carbuncle and furuncle of unspecified site BRONCHITIS, ACUTE 466.0 Active Checo Conklin MD Acute bronchitis FH BREAST CANCER ICD-V16.3 Inactive Checo Joshua [...] Carbuncle/furuncle NOS ICD-680.9 Inactive Hilaria Conklin MD Medication List Medication Instructions Start Date Stop Date Generic Name NDC Status Provider Patient Instruction AZITHROMYCIN 250 MG TABS 2 po qd x 1 day, then 1 po qd x 4 days AZITHROMYCIN 39131312628 Active Checo Conklin MD Act mike HYDROCODONE-ACETAMINOPHEN 5-325 MG TABS 1 po q 6hr PRN Pain 2013 HYDROCODONE-ACETAMINOPHEN 02183556704 No Longer Active Lenora Conklin MD Active PHENAZOPYRIDINE HCL 200 MG TABS take 1 tab po TID for bladder pa in PHENAZOPYRIDINE HCL 29170178706 No Longer Active Checo Joshua Active CIPRO 500 MG TAB 1 tablet by mouth twice daily CIPROFLOXACIN HCL 66438222898 No Longer Active Dangelo Rangel MD Active HYDROCODONE-ACETAMINOPHEN 5-325 MG TABS 1/2 to 1 po q 4 hour s prn cough HYDROCODONE-ACETAMINOPHEN 54061647798 No Longer Activ e Dangelo Rangel MD Active BACTRIM DS 800-160 MG TABS 1 po BID x 7 days 0 SULFAMETHOXAZOLE-TRIMETHOPRIM 82956760073 No Longer Active Checo Conklin MD Active PREDNISONE 20 MG TAB 2 tabs daily for 3 days, 1 t ab daily for 3 days, 1/2 tab daily for 2 days PREDNISONE 39146923674 No Longer Active Checo Conklin MD Active TRIAMCINOLONE ACETONIDE 0.1 % OINT Apply to affected a reas TID for up to 2 weeks TRIAMCINOLONE ACETONIDE 83137229807 No Longer A ctive Checo Conklin MD Active CEFDINIR 300 MG CAPS by mouth twice a day CEFDI JAZZY 69737882780 No Longer Active Dangeol Rangel MD Active CELEXA 20 MG TABS 1 tablet by mouth daily CITAL OPRAM HYDROBROMIDE 86611497274 Active Checo Conklin MD Active BUPROPION HCL (SMOKING DETER) 150 MG [id number] 1 a day for 1 week then 1 twice a day BUPROPION HCL (SMOKING DETER) 44929366865 No Lo nger Active Checo Conklin MD Active SIMVASTATIN 20 MG TABS 1 po qd SIMVASTATIN 5783536704 5 Active Checo Conklin MD Active CHANTIX STARTING MONTH KARTHIK 0.5 MG X 11 & 1 MG X 42 TAB S 0.5mg daily for 3 days, then 0.5mg BID for 4 days, then 1mg BID VARENICLINE TARTRATE 90242337600 No Longer Active Checo Conklin MD Activ e XANAX 0.5 MG TABS 1 po BID PRN anxiety ALPRAZOLAM 08206066935 Active Checo Conklin MD Active CONCERTA 18 MG CR-TABS 1 po q a.m. METHYLPHENID ATE HCL 98175392962 No Longer Active Checo Conklin MD Active REGLAN 10 MG TAB 1 po TID PRN Nausea METOCLOPRA MIDE HCL 62501140909 Active Checo Conklin MD Active AMBIEN 5 MG TAB 1 po qHS PRN Insomnia ZOLPIDEM TARTRATE 04527220920 Active Checo Conklin MD Active TRAZODONE HCL 100 MG TAB 0.5 to 1 po qHS PRN Insomnia TRAZODONE HCL 56448549080 No Longer Active Checo Conklin MD Acti ve FIORICET 325-50-40 MG TAB 1 tablet by mouth four times daily as needed [id number] 46228399152 No Longer Active Checo Conklin MD Active PHENERGAN CREAM* 25mg applied to wrist q6hr PRN Nausea PHENERGAN CREAM* No Longer Active Checo Conklin MD A ctive LAMISIL 250 MG TAB 1 po qd TERBINAFINE HCL 2596269756 1 Active Checo Conklin MD Active FLONASE 50 MCG/ACT SUSP 1 spray each nostril am and hs FLUTICASONE PROPIONATE 26759560743 No Longer Active Checo Conklin MD Activ e ANTIPYRINE-BENZOCAINE 5.4-1.4 % SOLN 1-2 drops in affected ear BENZOCAINE-ANTIPYRINE 77181472209 No Longer Active Checo Conklin MD Active CEFDINIR 300 MG CAPS 1 po bid CEFDINIR 46804180 120 No Longer Active Checo Conklin MD Active PREDNISONE 20 MG TAB 2 tabs daily for 3 days, 1 t ab daily for 3 days, 1/2 tab daily for 2 days PREDNISONE 36864990225 No Longer Active Aracelis Conklin MD Active AZITHROMYCIN 250 MG TABS 2 po qd x 1 day, then 1 po qd x 4 days AZITHROMYCIN 93175336130 No Longer Active Checo Conklin MD Active PREDNISONE 20 MG TAB 2 tabs daily for 3 days, 1 t ab daily for 3 days, 1/2 tab daily for 2 days PREDNISONE 45325426570 No Longer Active Checo Conklin MD Active ZITHROMAX Z-KARTHIK 250 MG TABS 2 today, then 1 daily for 4 days 201 09/18/28 AZITHROMYCIN 17461134851 No Longer Active Paul Hamlin MD Active FOCALIN XR 10 MG [id number] 1 po q a.m. D EXMETHYLPHENIDATE HCL 30867151746 No Longer Active Paul Hamlin MD Activ e PERCOCET 10-325 MG TABS 1 tablet every 6 hours as needed for pain OXYCODONE-ACETAMINOPHEN 18713534548 No Longer Active Paul Hamlin MD Active LORTAB 5 5-500 MG TABS 1/2 to 1 tablet by mouth flaquito ry 4 hours as needed for pain HYDROCODONE-ACETAMINOPHEN 94475498334 No Longer Active Checo Conklin MD Active FOCALIN XR 15 MG [id number] 1 po q a.m. D EXMETHYLPHENIDATE HCL 54670804363 No Longer Active Checo Conklin MD Activ e ZOFRAN ODT 4 MG TBDP 1 po q6hr PRN Nausea ONDAN SETRON 84861362265 No Longer Active Checo Conklin MD Active PERCOCET 5-325 MG TABS 1 tablet by mouth every 6 hours as needed OXYCODONE-ACETAMINOPHEN 45248073300 No Longer Active Checo Conklin MD Active PYRIDIUM 200 MG TABS take 1 tab po TID prn urinary pain. 0 PHENAZOPYRIDINE HCL 41061179254 No Longer Active Checo Conklin MD Active FLUCONAZOLE 150 MG TABS take 1 tab po qday once 04/06 FLUCONAZOLE 19718925489 No Longer Active Dangelo Rangel MD Acti ve CIPRO 500 MG TAB 1 tablet by mouth twice daily CIPROFLOXACIN HCL 84442647266 No Longer Active Dangelo Rangel MD Active PYRIDIUM 200 MG TABS take 1 tab po TID prn urinary pain. 0 PYRIDIUM 200 MG TABS 1903684 PHENAZOPYRIDINE HCL Inactive PERCOCET 5-325 MG TABS 1 tablet by mouth every 6 hours as needed PERCOCET 5-325 MG TABS 6406139 OXYCODONE-ACETAMINOPHEN I nactive ZOFRAN ODT 4 MG TBDP 1 po q6hr PRN Nausea ZOFRAN ODT 4 MG TBDP 886447 ONDANSETRON Inactive FOCALIN XR 15 MG [id number] 1 po q a.m. F OCALIN XR 15 MG GL73B-LMK DEXMETHYLPHENIDATE HCL Inactive LORTAB 5 5-500 MG TABS 1/2 to 1 tablet by mouth flaquito ry 4 hours as needed for pain LORTAB 5 5-500 MG TABS HYDROCODONE-A CETAMINOPHEN Inactive PERCOCET 10-325 MG TABS 1 tablet every 6 hours as needed for pain PERCOCET 10-325 MG TABS 5131773 OXYCODONE-ACETAMINOPHEN Inactive FOCALIN XR 10 MG [id number] 1 po q a.m. F OCALIN XR 10 MG [id number]-GQD DEXMETHYLPHENIDATE HCL Inactive CEFDINIR 300 MG CAPS 1 po bid CEFDINIR 300 MG CAPS 20 0346 CEFDINIR Inactive ANTIPYRINE-BENZOCAINE 5.4-1.4 % SOLN 1-2 drops in affected ear ANTIPYRINE-BENZOCAINE 5.4-1.4 % SOLN 207559 BENZOCAINE-ANTIPYRINE I nactive FLONASE 50 MCG/ACT SUSP 1 spray each nostril am and hs FLONASE 50 MCG/ACT SUSP 185269 FLUTICASONE PROPIONATE Inactive PHENERGAN CREAM* 25mg applied to wrist q6hr PRN Nausea PHENERGAN CREAM* Inactive FIORICET 325-50-40 MG TAB 1 tablet by mouth four times daily as needed FIORICET 325-50-40 MG TAB ACETAMINOPHEN-C AFF-BUTALBITAL Inactive TRAZODONE HCL 100 MG TAB 0.5 to 1 po qHS PRN Insomnia TRAZODONE HCL 100 MG TAB 212283 TRAZODONE HCL Inactive CONCERTA 18 MG CR-TABS [...] s prn cough HYDROCODONE-ACETAMINOPHEN 5-325 MG TABS 112083 HYDROCODONE-ACETAMINOPHEN Inactive PHENAZOPYRIDINE HCL 200 MG TABS take 1 tab po TID for bladder pa in PHENAZOPYRIDINE HCL 200 MG TABS 1200048 PHENAZOPYRIDINE HCL Inactive HYDROCODONE-ACETAMINOPHEN 5-325 MG TABS 1 po q 6hr PRN Pain 2013 HYDROCODONE-ACETAMINOPHEN 5-325 MG TABS 519755 HYDROCODONE-ACETAMINOPHEN Inactive CIPRO 500 MG TAB 1 tablet by mouth twice daily CIPRO 500 MG TAB 647613 CIPROFLOXACIN HCL Inactive FLUCONAZOLE 150 MG TABS take 1 tab po qday once 04/06 FLUCONAZOLE 150 MG TABS 074217 FLUCONAZOLE Inactive ZITHROMAX Z-KARTHIK 250 MG TABS 2 today, then 1 daily for 4 days 201 09/18/28 ZITHROMAX Z-KARTHIK 250 MG TABS 1968754 AZITHROMYCIN Inac tive PREDNISONE 20 MG TAB 2 tabs daily for 3 days, 1 t ab daily for 3 days, 1/2 tab daily for 2 days PREDNISONE 20 MG TAB 859412 PREDNISON E Inactive AZITHROMYCIN 250 MG TABS 2 po qd x 1 day, then 1 po qd x 4 days AZITHROMYCIN 250 MG TABS 6339472 AZITHROMYCIN Inactiv e PREDNISONE 20 MG TAB 2 tabs daily for 3 days, 1 t ab daily for 3 days, 1/2 tab daily for 2 days PREDNISONE 20 MG TAB 054520 PREDNISON E Inactive CEFDINIR 300 MG CAPS by mouth twice a day CEFDINIR 300 MG CAPS 928323 CEFDINIR Inactive TRIAMCINOLONE ACETONIDE 0.1 % OINT Apply to affected a reas TID for up to 2 weeks TRIAMCINOLONE ACETONIDE 0.1 % OINT 313271 6 TRIAMCINOLONE ACETONIDE Inactive PREDNISONE 20 MG TAB 2 tabs daily for 3 days, 1 t ab daily for 3 days, 1/2 tab daily for 2 days PREDNISONE 20 MG TAB 686981 PREDNISON E Inactive BACTRIM DS 800-160 MG TABS 1 po BID x 7 days 0 BACTRIM DS 800-160 MG TABS SULFAMETHOXAZOLE-TRIMETHOPRIM Inactive CIPRO 500 MG TAB 1 tablet by mouth twice daily CIPRO 500 MG TAB 212334 CIPROFLOXACIN HCL Inactive Immunizations Vaccine Administration Date Value Standard Michael cription TB-PPD (tuberculin purified protein derivative), intra dermal administration Tubersol Vital Signs Date Name Value Unit Range Description temperature E&M 98.4 [degF] Body temp erature [...] Panel - Chemistry sodium, serum 139 mmol/L 673-797 2503/10/24 potassium, serum 4.1 mmol/L 3.5-5.2 chloride, serum [...] 0.80 mg/dL 0.00-1.00 cholesterol, serum 147 mg/dL 869-053 4294/10/24 triglyceride, serum, fasting 112 mg/dL 30-200 HDL cholesterol, serum 40 mg/dL 32-96 LDL cholesterol, serum 85 mg/dL 0-130 Lab Report: HGBA1C, CBC W/DIFF, Comp. Me tabolic Panel, Lipid Panel - Chemistry sodium, serum 139 mmol/L 983-328 0607/01/09 potassium, serum 4.3 mmol/L 3.5-5.2 chloride, serum [...] 1.10 mg/dL 0.00-1.00 cholesterol, serum 222 mg/dL 288-277 0773/01/09 triglyceride, serum, fasting 92 mg/dL 30-200 HDL [...] Clear Encounters Code Encounter Date Provider Facility CPT-89383 Level 3 Est. Patient 13:34:17 SET UP OPERATOR Checo Conklin MD [facility] CPT-70694 Level 3 Est. Patient 12:29:32 CDT Dangelo arroyo MD [facility] CPT-16760 Level 3 Est. Patient 16:53:02 CDT Checo Conklin MD [facility] CPT-50245 Level 3 Est. Patient 16:37:13 CDT Checo Conklin MD [facility] CPT-06791 Level 3 Est. Patient 16:16:59 CDT Paul Hamlin MD [facility] CPT-56573 Level 3 Est. Patient 14:20:13 CDT Dangelo arroyo MD [facility] CPT-31329 Level 4 Est. Patient 11:29:33 CDT Checo Conklin MD [facility] CPT-57523 Level 3 Est. Patient 17:08:31 CDT Checo Conklin MD [facility] CPT-74762 Level 3 Est. Patient 16:50:42 SET UP OPERATOR Checo Conklin MD [facility] CPT-19414 Level 4 Est. Patient 09:26:08 SET UP OPERATOR Checo Conklin MD [facility] CPT-26775 Level 3 Est. Patient 11:37:10 CDT Checo Conklin MD [facility] CPT-55987 Level 4 Est. Patient 14:07:38 CDT Checo Conklin MD [facility] CPT-85650 Level 3 Est. Patient 09:54:41 CDT Checo Conklin MD [facility] CPT-05243 Level 3 Est. Patient 11:10:54 CDT Paul Hamlin MD [facility] CPT-47397 Level 3 Est. Patient 14:16:56 SET UP OPERATOR Checo Conklin MD [facility] CPT-40449 Level 3 Est. Patient 11:04:11 SET UP OPERATOR Checo Conklin MD [facility] CPT-71583 Level 3 Est. Patient 17:09:26 CDT Dangelo arroyo MD [facility] CPT-37343 Level 3 Est. Patient 16:54:37 CDT Checo Conklin MD [facility] Procedures Code Procedure Name Date Entry Date Standard Desc ription CPT-OV Office Visit 11:31:28 CDT CPT-66963 Tubersol 09:39:29 CDT CPT-J2550 Phenergan 25 mg (Promethazine) 13:59:02 SET UP OPERATOR CPT-J1885 Toradol 60 mg (Ketorolac) 13:59:02 SET UP OPERATOR 2012
--- OUTSIDE RECORDS SUMMARY | 2019-09-29 02:31 | XMS REPORT | Clinical Summary ---
[...] 1 po q 6hr PRN Pain HYDROCODONE-ACETAMINOPHEN 83836495006 Active Dangelo Rangel MD Active PHENAZOPYRIDINE HCL 200 MG TABS take 1 tab po TID for bladder pain PHENAZOPYRIDINE HCL 04418189034 Active Dangelo Rangel MD A ctive CIPRO 500 MG TAB 1 tablet by mouth twice daily CIPROFLOXACIN HCL 28318546561 No Longer Active Dangelo Rangel MD Active HYDROCODONE-ACETAMINOPHEN 5-325 MG TABS 1/2 to 1 po q 4 hour s prn cough HYDROCODONE-ACETAMINOPHEN 52512756933 No Longer Activ e Dangelo Rangel MD Active BACTRIM DS 800-160 MG TABS 1 po BID x 7 days 0 SULFAMETHOXAZOLE-TRIMETHOPRIM 92781910999 No Longer Active Checo Conklin MD Active PREDNISONE 20 MG TAB 2 tabs daily for 3 days, 1 t ab daily for 3 days, 1/2 tab daily for 2 days PREDNISONE 25957319378 No Longer Active Checo Conklin MD Active TRIAMCINOLONE ACETONIDE 0.1 % OINT Apply to affected a reas TID for up to 2 weeks TRIAMCINOLONE ACETONIDE 64768425968 No Longer A ctive Checo Conklin MD Active CEFDINIR 300 MG CAPS by mouth twice a day CEFDI JAZZY 27651396127 No Longer Active Dangelo Rangel MD Active CELEXA 20 MG TABS 1 tablet by mouth daily CITAL OPRAM HYDROBROMIDE 06985055183 Active Checo Conklin MD Active BUPROPION HCL (SMOKING DETER) 150 MG [id number] 1 a day for 1 week then 1 twice a day BUPROPION HCL (SMOKING DETER) 83014730801 No Lo nger Active Checo Conklin MD Active SIMVASTATIN 20 MG TABS 1 po qd SIMVASTATIN 2518000219 4 Active Checo Conklin MD Active CHANTIX STARTING MONTH KARTHIK 0.5 MG X 11 & 1 MG X 42 TAB S 0.5mg daily for 3 days, then 0.5mg BID for 4 days, then 1mg BID VARENICLINE TARTRATE 19194644152 No Longer Active Checo Conklin MD Activ e XANAX 0.5 MG TABS 1 po BID PRN anxiety ALPRAZOLAM 10216560302 Active Checo Conklin MD Active CONCERTA 18 MG CR-TABS 1 po q a.m. METHYLPHENID ATE HCL 98859943508 No Longer Active Checo Conklin MD Active REGLAN 10 MG TAB 1 po TID PRN Nausea METOCLOPRA MIDE HCL 94845273405 Active Checo Conklin MD Active AMBIEN 5 MG TAB 1 po qHS PRN Insomnia ZOLPIDEM TARTRATE 33317274217 Active Checo Conklin MD Active TRAZODONE HCL 100 MG TAB 0.5 to 1 po qHS PRN Insomnia TRAZODONE HCL 15901042281 No Longer Active Checo Conklin MD Acti ve FIORICET 325-50-40 MG TAB 1 tablet by mouth four times daily as needed [id number] 10122181836 No Longer Active Checo Conklin MD Active PHENERGAN CREAM* 25mg applied to wrist q6hr PRN Nausea PHENERGAN CREAM* No Longer Active Checo Conklin MD A ctive LAMISIL 250 MG TAB 1 po qd TERBINAFINE HCL 2622479540 1 Active Checo Conklin MD Active FLONASE 50 MCG/ACT SUSP 1 spray each nostril am and hs FLUTICASONE PROPIONATE 74992425388 No Longer Active Checo Conklin MD Activ e ANTIPYRINE-BENZOCAINE 5.4-1.4 % SOLN 1-2 drops in affected ear BENZOCAINE-ANTIPYRINE 42986587127 No Longer Active Checo Conklin MD Active CEFDINIR 300 MG CAPS 1 po bid CEFDINIR 67209515 120 No Longer Active Checo Conklin MD Active PREDNISONE 20 MG TAB 2 tabs daily for 3 days, 1 t ab daily for 3 days, 1/2 tab daily for 2 days PREDNISONE 45035533788 No Longer Active Aracelis Conklin MD Active AZITHROMYCIN 250 MG TABS 2 po qd x 1 day, then 1 po qd x 4 days AZITHROMYCIN 87530398614 No Longer Active Checo Conklin MD Active PREDNISONE 20 MG TAB 2 tabs daily for 3 days, 1 t ab daily for 3 days, 1/2 tab daily for 2 days PREDNISONE 97126736580 No Longer Active Checo Conklin MD Active ZITHROMAX Z-KARTHIK 250 MG TABS 2 today, then 1 daily for 4 days 201 09/18/28 AZITHROMYCIN 92256675978 No Longer Active Paul Hamlin MD Active FOCALIN XR 10 MG [id number] 1 po q a.m. D EXMETHYLPHENIDATE HCL 51166483687 No Longer Active Paul Hamlin MD Activ e PERCOCET 10-325 MG TABS 1 tablet every 6 hours as needed for pain OXYCODONE-ACETAMINOPHEN 84326263668 No Longer Active Paul Hamlin MD Active LORTAB 5 5-500 MG TABS 1/2 to 1 tablet by mouth flaquito ry 4 hours as needed for pain HYDROCODONE-ACETAMINOPHEN 63042268129 No Longer Active Checo Conklin MD Active FOCALIN XR 15 MG [id number] 1 po q a.m. D EXMETHYLPHENIDATE HCL 21797950172 No Longer Active Checo Conklin MD Activ e ZOFRAN ODT 4 MG TBDP 1 po q6hr PRN Nausea ONDAN SETRON 46503777603 No Longer Active Checo Conklin MD Active PERCOCET 5-325 MG TABS 1 tablet by mouth every 6 hours as needed OXYCODONE-ACETAMINOPHEN 60373159914 No Longer Active Checo Conklin MD Active PYRIDIUM 200 MG TABS take 1 tab po TID prn urinary pain. 0 PHENAZOPYRIDINE HCL 87278314353 No Longer Active Checo Conklin MD Active FLUCONAZOLE 150 MG TABS take 1 tab po qday once 04/06 FLUCONAZOLE 42344843686 No Longer Active Dangelo Rangel MD Acti ve CIPRO 500 MG TAB 1 tablet by mouth twice daily CIPROFLOXACIN HCL 90053750461 No Longer Active Dangelo Rangel MD Active PYRIDIUM 200 MG TABS take 1 tab po TID prn urinary pain. 0 PYRIDIUM 200 MG TABS 7883247 PHENAZOPYRIDINE HCL Inactive PERCOCET 5-325 MG TABS 1 tablet by mouth every 6 hours as needed PERCOCET 5-325 MG TABS 9361475 OXYCODONE-ACETAMINOPHEN I nactive ZOFRAN ODT 4 MG TBDP 1 po q6hr PRN Nausea ZOFRAN ODT 4 MG TBDP 629694 ONDANSETRON Inactive FOCALIN XR 15 MG [id number] 1 po q a.m. F OCALIN XR 15 MG [id number] DEXMETHYLPHENIDATE HCL Inactive LORTAB 5 5-500 MG TABS 1/2 to 1 tablet by mouth flaquito ry 4 hours as needed for pain LORTAB 5 5-500 MG TABS HYDROCODONE-A CETAMINOPHEN Inactive PERCOCET 10-325 MG TABS 1 tablet every 6 hours as needed for pain PERCOCET 10-325 MG TABS 2743755 OXYCODONE-ACETAMINOPHEN Inactive FOCALIN XR 10 MG [id number] 1 po q a.m. F OCALIN XR 10 MG [id number] DEXMETHYLPHENIDATE HCL Inactive CEFDINIR 300 MG CAPS 1 po bid CEFDINIR 300 MG CAPS 20 0346 CEFDINIR Inactive ANTIPYRINE-BENZOCAINE 5.4-1.4 % SOLN 1-2 drops in affected ear ANTIPYRINE-BENZOCAINE 5.4-1.4 % SOLN 330152 BENZOCAINE-ANTIPYRINE I nactive FLONASE 50 MCG/ACT SUSP 1 spray each nostril am and hs FLONASE 50 MCG/ACT SUSP 708445 FLUTICASONE PROPIONATE Inactive PHENERGAN CREAM* 25mg applied to wrist q6hr PRN Nausea PHENERGAN CREAM* Inactive FIORICET 325-50-40 MG TAB 1 tablet by mouth four times daily as needed FIORICET 325-50-40 MG TAB ACETAMINOPHEN-C AFF-BUTALBITAL Inactive TRAZODONE HCL 100 MG TAB 0.5 to 1 po qHS PRN Insomnia TRAZODONE HCL 100 MG TAB 899302 TRAZODONE HCL Inactive CONCERTA 18 MG CR-TABS [...] s prn cough HYDROCODONE-ACETAMINOPHEN 5-325 MG TABS 897241 HYDROCODONE-ACETAMINOPHEN Inactive CIPRO 500 MG TAB 1 tablet by mouth twice daily CIPRO 500 MG TAB 566142 CIPROFLOXACIN HCL Inactive FLUCONAZOLE 150 MG TABS take 1 tab po qday once 04/06 FLUCONAZOLE 150 MG TABS 924430 FLUCONAZOLE Inactive ZITHROMAX Z-KARTHIK 250 MG TABS 2 today, then 1 daily for 4 days 201 09/18/28 ZITHROMAX Z-KARTHIK 250 MG TABS 4376400 AZITHROMYCIN Inac tive PREDNISONE 20 MG TAB 2 tabs daily for 3 days, 1 t ab daily for 3 days, 1/2 tab daily for 2 days PREDNISONE 20 MG TAB 008469 PREDNISON E Inactive AZITHROMYCIN 250 MG TABS 2 po qd x 1 day, then 1 po qd x 4 days AZITHROMYCIN 250 MG TABS 5619308 AZITHROMYCIN Inactiv e PREDNISONE 20 MG TAB 2 tabs daily for 3 days, 1 t ab daily for 3 days, 1/2 tab daily for 2 days PREDNISONE 20 MG TAB 697403 PREDNISON E Inactive CEFDINIR 300 MG CAPS by mouth twice a day CEFDINIR 300 MG CAPS 114990 CEFDINIR Inactive TRIAMCINOLONE ACETONIDE 0.1 % OINT Apply to affected a reas TID for up to 2 weeks TRIAMCINOLONE ACETONIDE 0.1 % OINT 974143 6 TRIAMCINOLONE ACETONIDE Inactive PREDNISONE 20 MG TAB 2 tabs daily for 3 days, 1 t ab daily for 3 days, 1/2 tab daily for 2 days PREDNISONE 20 MG TAB 681642 PREDNISON E Inactive BACTRIM DS 800-160 MG TABS 1 po BID x 7 days 0 BACTRIM DS 800-160 MG TABS SULFAMETHOXAZOLE-TRIMETHOPRIM Inactive CIPRO 500 MG TAB 1 tablet by mouth twice daily CIPRO 500 MG TAB 912547 CIPROFLOXACIN HCL Inactive Immunizations Vaccine Administration Date [...] pressure, diastolic - 8462-4 71 mm[Hg] BP mtahew blood pressure, systolic - 8480-6 109 mm[Hg] [...] 0.80 mg/dL 0.00-1.00 cholesterol, serum 147 mg/dL 924-378 5448/10/24 triglyceride, serum, fasting 112 mg/dL 30-200 HDL cholesterol, serum 40 mg/dL 32-96 LDL cholesterol, serum 85 mg/dL 0-130 sodium, serum 139 mmol/L 344-204 4102/10/24 potassium, serum 4.1 mmol/L 3.5-5.2 chloride, serum 102 mmol/L 98-107 carbon dioxide, venous blood 30.9 mmol/L 21.0-32 .0 blood glucose 78 mg/dL 65-110 urea nitrogen, blood 11 mg/dL 7-18 Lab Report: HGBA1C, CBC W/DIFF, Comp. Me tabolic Panel, Lipid Panel - Chemistry sodium, serum 139 mmol/L 628-560 8268/01/09 potassium, serum 4.3 mmol/L 3.5-5.2 chloride, serum [...] 1.10 mg/dL 0.00-1.00 cholesterol, serum 222 mg/dL 897-937 2346/01/09 triglyceride, serum, fasting 92 mg/dL 30-200 HDL [...] Clear Encounters Code Encounter Date Provider Facility CPT-11790 Level 3 Est. Patient 12:29:32 CDT Dangelo arroyo MD [facility] CPT-62005 Level 3 Est. Patient 16:53:02 CDT Checo Conklin MD [facility] CPT-09825 Level 3 Est. Patient 16:37:13 CDT Checo Conklin MD [facility] CPT-25583 Level 3 Est. Patient 16:16:59 CDT Paul Hamlin MD [facility] CPT-59360 Level 3 Est. Patient 14:20:13 CDT Dangelo arroyo MD [facility] CPT-81644 Level 4 Est. Patient 11:29:33 CDT Checo Conklin MD [facility] CPT-67489 Level 3 Est. Patient 17:08:31 CDT Checo Conklin MD [facility] CPT-51173 Level 3 Est. Patient 16:50:42 [employer] Checo Conklin MD [facility] CPT-55636 Level 4 Est. Patient 09:26:08 [employer] Checo Conklin MD [facility] CPT-94141 Level 3 Est. Patient 11:37:10 CDT Checo Conklin MD [facility] CPT-53315 Level 4 Est. Patient 14:07:38 CDT Checo Conklin MD [facility] CPT-28766 Level 3 Est. Patient 09:54:41 CDT Checo Conklin MD [facility] CPT-61700 Level 3 Est. Patient 11:10:54 CDT Paul Hamlin MD [facility] CPT-07943 Level 3 Est. Patient 14:16:56 [employer] Checo Conklin MD [facility] CPT-77306 Level 3 Est. Patient 11:04:11 [employer] Checo Conklin MD [facility] CPT-18212 Level 3 Est. Patient 17:09:26 CDT Dangelo arroyo MD [facility] CPT-45450 Level 3 Est. Patient 16:54:37 CDT Checo Conklin MD [facility] Procedures Code Procedure Name Date Entry Date Standard Desc ription CPT-OV Office Visit 11:31:28 CDT CPT-16504 Tubersol 09:39:29 CDT CPT-J2550 Phenergan 25 mg (Promethazine) 13:59:02 [employer] CPT-J1885 Toradol 60 mg (Ketorolac) 13:59:02 [employer] 2012
--- OUTSIDE RECORDS SUMMARY | 2019-09-29 02:31 | XMS REPORT | Clinical Summary ---
[...] MD Carbuncle and furuncle of unspecified site BREAST CANCER ICD-V16.3 Inactive Checo Joshua [facility] [...] 1 po q 6hr PRN Pain HYDROCODONE-ACETAMINOPHEN 55276860312 Active Dangelo Rangel MD Active PHENAZOPYRIDINE HCL 200 MG TABS take 1 tab po TID for bladder pain PHENAZOPYRIDINE HCL 27230548881 Active Dangelo Rangel MD A ctive CIPRO 500 MG TAB 1 tablet by mouth twice daily CIPROFLOXACIN HCL 73791066786 No Longer Active Dangelo Rangel MD Active HYDROCODONE-ACETAMINOPHEN 5-325 MG TABS 1/2 to 1 po q 4 hour s prn cough HYDROCODONE-ACETAMINOPHEN 78272305627 No Longer Activ e Dangelo Rangel MD Active BACTRIM DS 800-160 MG TABS 1 po BID x 7 days 0 SULFAMETHOXAZOLE-TRIMETHOPRIM 95087525602 No Longer Active Checo Conklin MD Active PREDNISONE 20 MG TAB 2 tabs daily for 3 days, 1 t ab daily for 3 days, 1/2 tab daily for 2 days PREDNISONE 50977863723 No Longer Active Checo Conklin MD Active TRIAMCINOLONE ACETONIDE 0.1 % OINT Apply to affected a reas TID for up to 2 weeks TRIAMCINOLONE ACETONIDE 68036601978 No Longer A ctive Checo Conklin MD Active CEFDINIR 300 MG CAPS by mouth twice a day CEFDI JAZZY 82958332675 No Longer Active Dangelo Rangel MD Active CELEXA 20 MG TABS 1 tablet by mouth daily CITAL OPRAM HYDROBROMIDE 51959940895 Active Checo Conklin MD Active BUPROPION HCL (SMOKING DETER) 150 MG [id number] 1 a day for 1 week then 1 twice a day BUPROPION HCL (SMOKING DETER) 22746262692 No Lo nger Active Checo Conklin MD Active SIMVASTATIN 20 MG TABS 1 po qd SIMVASTATIN 8013793891 4 Active Checo Conklin MD Active CHANTIX STARTING MONTH KARTHIK 0.5 MG X 11 & 1 MG X 42 TAB S 0.5mg daily for 3 days, then 0.5mg BID for 4 days, then 1mg BID VARENICLINE TARTRATE 29985316753 No Longer Active Checo Conklin MD Activ e XANAX 0.5 MG TABS 1 po BID PRN anxiety ALPRAZOLAM 26352603510 Active Checo Conklin MD Active CONCERTA 18 MG CR-TABS 1 po q a.m. METHYLPHENID ATE HCL 21882589805 No Longer Active Checo Conklin MD Active REGLAN 10 MG TAB 1 po TID PRN Nausea METOCLOPRA MIDE HCL 68091838545 Active Checo Conklin MD Active AMBIEN 5 MG TAB 1 po qHS PRN Insomnia ZOLPIDEM TARTRATE 90850220225 Active Checo Conklin MD Active TRAZODONE HCL 100 MG TAB 0.5 to 1 po qHS PRN Insomnia TRAZODONE HCL 80484665454 No Longer Active Checo Conklin MD Acti ve FIORICET 325-50-40 MG TAB 1 tablet by mouth four times daily as needed [id number] 88391243141 No Longer Active Checo Conklin MD Active PHENERGAN CREAM* 25mg applied to wrist q6hr PRN Nausea PHENERGAN CREAM* No Longer Active Checo Conklin MD A ctive LAMISIL 250 MG TAB 1 po qd TERBINAFINE HCL 8145600611 1 Active Checo Conklin MD Active FLONASE 50 MCG/ACT SUSP 1 spray each nostril am and hs FLUTICASONE PROPIONATE 64913624288 No Longer Active Checo Conklin MD Activ e ANTIPYRINE-BENZOCAINE 5.4-1.4 % SOLN 1-2 drops in affected ear BENZOCAINE-ANTIPYRINE 91922763753 No Longer Active Checo Conklin MD Active CEFDINIR 300 MG CAPS 1 po bid CEFDINIR 15189936 120 No Longer Active Checo Conklin MD Active PREDNISONE 20 MG TAB 2 tabs daily for 3 days, 1 t ab daily for 3 days, 1/2 tab daily for 2 days PREDNISONE 52288783873 No Longer Active M greg Conklin MD Active AZITHROMYCIN 250 MG TABS 2 po qd x 1 day, then 1 po qd x 4 days AZITHROMYCIN 73329730351 No Longer Active Checo Conklin MD Active PREDNISONE 20 MG TAB 2 tabs daily for 3 days, 1 t ab daily for 3 days, 1/2 tab daily for 2 days PREDNISONE 99998819815 No Longer Active Checo Conklin MD Active ZITHROMAX Z-KARTHIK 250 MG TABS 2 today, then 1 daily for 4 days 201 09/18/28 AZITHROMYCIN 32419330690 No Longer Active Paul Hamlin MD Active FOCALIN XR 10 MG [id number] 1 po q a.m. D EXMETHYLPHENIDATE HCL 87604653630 No Longer Active Paul Hamlin MD Activ e PERCOCET 10-325 MG TABS 1 tablet every 6 hours as needed for pain OXYCODONE-ACETAMINOPHEN 47212277421 No Longer Active Paul Hamlin MD Active LORTAB 5 5-500 MG TABS 1/2 to 1 tablet by mouth flaquito ry 4 hours as needed for pain HYDROCODONE-ACETAMINOPHEN 92708151126 No Longer Active Checo Conklin MD Active FOCALIN XR 15 MG [id number] 1 po q a.m. D EXMETHYLPHENIDATE HCL 99805241634 No Longer Active Checo Conklin MD Activ e ZOFRAN ODT 4 MG TBDP 1 po q6hr PRN Nausea ONDAN SETRON 99806935354 No Longer Active Checo Conklin MD Active PERCOCET 5-325 MG TABS 1 tablet by mouth every 6 hours as needed OXYCODONE-ACETAMINOPHEN 50530919039 No Longer Active Checo Conklin MD Active PYRIDIUM 200 MG TABS take 1 tab po TID prn urinary pain. 0 PHENAZOPYRIDINE HCL 71063440042 No Longer Active Checo Conklin MD Active FLUCONAZOLE 150 MG TABS take 1 tab po qday once 04/06 FLUCONAZOLE 81463573154 No Longer Active Dangelo Rangel MD Acti ve CIPRO 500 MG TAB 1 tablet by mouth twice daily CIPROFLOXACIN HCL 70872116103 No Longer Active Dangelo Rangel MD Active PYRIDIUM 200 MG TABS take 1 tab po TID prn urinary pain. 0 PYRIDIUM 200 MG TABS 9252600 PHENAZOPYRIDINE HCL Inactive PERCOCET 5-325 MG TABS 1 tablet by mouth every 6 hours as needed PERCOCET 5-325 MG TABS 9421947 OXYCODONE-ACETAMINOPHEN I nactive ZOFRAN ODT 4 MG TBDP 1 po q6hr PRN Nausea ZOFRAN ODT 4 MG TBDP 417033 ONDANSETRON Inactive FOCALIN XR 15 MG [id number] 1 po q a.m. F OCALIN XR 15 MG [id number] DEXMETHYLPHENIDATE HCL Inactive LORTAB 5 5-500 MG TABS 1/2 to 1 tablet by mouth flaquito ry 4 hours as needed for pain LORTAB 5 5-500 MG TABS HYDROCODONE-A CETAMINOPHEN Inactive PERCOCET 10-325 MG TABS 1 tablet every 6 hours as needed for pain PERCOCET 10-325 MG TABS 7657639 OXYCODONE-ACETAMINOPHEN Inactive FOCALIN XR 10 MG [id number] 1 po q a.m. F OCALIN XR 10 MG [id number] DEXMETHYLPHENIDATE HCL Inactive CEFDINIR 300 MG CAPS 1 po bid CEFDINIR 300 MG CAPS 20 0346 CEFDINIR Inactive ANTIPYRINE-BENZOCAINE 5.4-1.4 % SOLN 1-2 drops in affected ear ANTIPYRINE-BENZOCAINE 5.4-1.4 % SOLN 788190 BENZOCAINE-ANTIPYRINE I nactive FLONASE 50 MCG/ACT SUSP 1 spray each nostril am and hs FLONASE 50 MCG/ACT SUSP 230943 FLUTICASONE PROPIONATE Inactive PHENERGAN CREAM* 25mg applied to wrist q6hr PRN Nausea PHENERGAN CREAM* Inactive FIORICET 325-50-40 MG TAB 1 tablet by mouth four times daily as needed FIORICET 325-50-40 MG TAB ACETAMINOPHEN-C AFF-BUTALBITAL Inactive TRAZODONE HCL 100 MG TAB 0.5 to 1 po qHS PRN Insomnia TRAZODONE HCL 100 MG TAB 198217 TRAZODONE HCL Inactive CONCERTA 18 MG CR-TABS [...] s prn cough HYDROCODONE-ACETAMINOPHEN 5-325 MG TABS 533458 HYDROCODONE-ACETAMINOPHEN Inactive CIPRO 500 MG TAB 1 tablet by mouth twice daily CIPRO 500 MG TAB 270500 CIPROFLOXACIN HCL Inactive FLUCONAZOLE 150 MG TABS take 1 tab po qday once 04/06 FLUCONAZOLE 150 MG TABS 156696 FLUCONAZOLE Inactive ZITHROMAX Z-KARTHIK 250 MG TABS 2 today, then 1 daily for 4 days 201 09/18/28 ZITHROMAX Z-KARTHIK 250 MG TABS 7684241 AZITHROMYCIN Inac tive PREDNISONE 20 MG TAB 2 tabs daily for 3 days, 1 t ab daily for 3 days, 1/2 tab daily for 2 days PREDNISONE 20 MG TAB 554415 PREDNISON E Inactive AZITHROMYCIN 250 MG TABS 2 po qd x 1 day, then 1 po qd x 4 days AZITHROMYCIN 250 MG TABS 0154537 AZITHROMYCIN Inactiv e PREDNISONE 20 MG TAB 2 tabs daily for 3 days, 1 t ab daily for 3 days, 1/2 tab daily for 2 days PREDNISONE 20 MG TAB 221425 PREDNISON E Inactive CEFDINIR 300 MG CAPS by mouth twice a day CEFDINIR 300 MG CAPS 248642 CEFDINIR Inactive TRIAMCINOLONE ACETONIDE 0.1 % OINT Apply to affected a reas TID for up to 2 weeks TRIAMCINOLONE ACETONIDE 0.1 % OINT 663817 6 TRIAMCINOLONE ACETONIDE Inactive PREDNISONE 20 MG TAB 2 tabs daily for 3 days, 1 t ab daily for 3 days, 1/2 tab daily for 2 days PREDNISONE 20 MG TAB 658246 PREDNISON E Inactive BACTRIM DS 800-160 MG TABS 1 po BID x 7 days 0 BACTRIM DS 800-160 MG TABS SULFAMETHOXAZOLE-TRIMETHOPRIM Inactive CIPRO 500 MG TAB 1 tablet by mouth twice daily CIPRO 500 MG TAB 291521 CIPROFLOXACIN HCL Inactive Immunizations Vaccine Administration Date Value Standard Michael cription TB PPD (tuberculin purified protein derivative), intra dermal administration Tubersol Vital Signs Date Name Value Unit Range Description blood pressure, diastolic 79 mm[Hg] BP mathew blood pressure, systolic 121 mm[Hg] BP sys pulse rate E&M 77 /min Heart rate temperature E&M 98.6 [degF] Body temp erature weight E&M 118 [lb_av] Weight Measure d blood pressure, diastolic [...] Panel - Chemistry sodium, serum 139 mmol/L 491-449 3453/10/24 potassium, serum 4.1 mmol/L 3.5-5.2 chloride, serum [...] 0.80 mg/dL 0.00-1.00 cholesterol, serum 147 mg/dL 605-706 7666/10/24 triglyceride, serum, fasting 112 mg/dL 30-200 HDL cholesterol, serum 40 mg/dL 32-96 LDL cholesterol, serum 85 mg/dL 0-130 Lab Report: HGBA1C, CBC W/DIFF, Comp. Me tabolic Panel, Lipid Panel - Chemistry sodium, serum 139 mmol/L 324-471 3863/01/09 potassium, serum 4.3 mmol/L 3.5-5.2 chloride, serum [...] 1.10 mg/dL 0.00-1.00 cholesterol, serum 222 mg/dL 362-407 9329/01/09 triglyceride, serum, fasting 92 mg/dL 30-200 HDL [...] Clear Encounters Code Encounter Date Provider Facility CPT-86459 Level 3 Est. Patient 12:29:32 CDT Dangelo arroyo MD [facility] CPT-38654 Level 3 Est. Patient 16:53:02 CDT Checo Conklin MD [facility] CPT-57888 Level 3 Est. Patient 16:37:13 CDT Checo Conklin MD [facility] CPT-71478 Level 3 Est. Patient 16:16:59 CDT Paul Hamlin MD [facility] CPT-18888 Level 3 Est. Patient 14:20:13 CDT Dangelo arroyo MD [facility] CPT-03705 Level 4 Est. Patient 11:29:33 CDT Checo Conklin MD [facility] CPT-96842 Level 3 Est. Patient 17:08:31 CDT Checo Conklin MD [facility] CPT-16282 Level 3 Est. 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 Patient 11:37:10 CDT Checo Conklin MD [facility] CPT-58949 Level 4 Est. Patient 14:07:38 CDT Checo Conklin MD [facility] CPT-91840 Level 3 Est. Patient 09:54:41 CDT Checo Conklin MD [facility] CPT-35403 Level 3 Est. Patient 11:10:54 CDT Paul Hamlin MD [facility] CPT-77625 Level 3 Est. Patient 14:16:56 PROFESS[employer]ONMENT[employer] SCI[employer] Checo Conklin MD [facility] CPT-79690 Level 3 Est. Patient 11:04:11 PROFESSOR [employer]ONMENT[employer] Checo Conklin MD [facility] CPT-99328 Level 3 Est. Patient 17:09:26 CDT Dangelo arroyo MD [facility] CPT-98022 Level 3 Est. 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
--- OUTSIDE RECORDS SUMMARY | 2019-09-29 02:32 | XMS REPORT | Clinical Summary ---
[...] mouth every 6 hours as needed HYDROCODONE-ACETAMINOPHEN 47102203717 Active Checo Conklin MD Active DICLOFENAC SODIUM 75 MG TBEC 1 tablet by mouth twice daily P RN Knee pain DICLOFENAC SODIUM 11066047283 Active Checo Conklin MD Active LAMISIL 250 MG TAB 1 po qd TERBINAFINE HCL 548 33014923 No Longer Active Checo Conklin MD Active REGLAN 10 MG TAB 1 po TID PRN Nausea METOCLOPRA MIDE HCL 86203659248 No Longer Active Checo Conklin MD Active CELEXA 20 MG TABS 1 tablet by mouth daily CITALOPRAM HYDROBROMIDE 92956612698 No Longer Active Checo Conklin MD Activ e AZITHROMYCIN 250 MG TABS 2 po qd x 1 day, then 1 po qd x 4 days AZITHROMYCIN 08454534231 No Longer Active Checo Conklin MD Active HYDROCODONE-ACETAMINOPHEN 5-325 MG TABS 1 po q 6hr PRN Pain 2013 HYDROCODONE-ACETAMINOPHEN 13540296517 No Longer Active Lenora Conklin MD Active PHENAZOPYRIDINE HCL 200 MG TABS take 1 tab po TID for bladder pa in PHENAZOPYRIDINE HCL 54606560765 No Longer Active Checo Joshua Active CIPRO 500 MG TAB 1 tablet by mouth twice daily CIPROFLOXACIN HCL 03210670332 No Longer Active Dangelo Rangel MD Active HYDROCODONE-ACETAMINOPHEN 5-325 MG TABS 1/2 to 1 po q 4 hour s prn cough HYDROCODONE-ACETAMINOPHEN 76902515910 No Longer Activ e Dangelo Rangel MD Active BACTRIM DS 800-160 MG TABS 1 po BID x 7 days 0 SULFAMETHOXAZOLE-TRIMETHOPRIM 42264717613 No Longer Active Checo Conklin MD Active PREDNISONE 20 MG TAB 2 tabs daily for 3 days, 1 t ab daily for 3 days, 1/2 tab daily for 2 days PREDNISONE 53003551429 No Longer Active Checo Conklin MD Active TRIAMCINOLONE ACETONIDE 0.1 % OINT Apply to affected a reas TID for up to 2 weeks TRIAMCINOLONE ACETONIDE 95099103736 No Longer A ctive Checo Conklin MD Active CEFDINIR 300 MG CAPS by mouth twice a day CEFDI JAZZY 13518358324 No Longer Active Dangelo Rangel MD Active BUPROPION HCL (SMOKING DETER) 150 MG [id number] 1 a day for 1 week then 1 twice a day BUPROPION HCL (SMOKING DETER) 37955776873 No Lo nger Active Checo Conklin MD Active SIMVASTATIN 20 MG TABS 1 po qd SIMVASTATIN 1013552149 5 Active Checo Conklin MD Active CHANTIX STARTING MONTH KARTHIK 0.5 MG X 11 & 1 MG X 42 TAB S 0.5mg daily for 3 days, then 0.5mg BID for 4 days, then 1mg BID VARENICLINE TARTRATE 91171806766 No Longer Active Checo Conklin MD Activ e XANAX 0.5 MG TABS 1 po BID PRN anxiety ALPRAZOLAM 33323169681 Active Checo Conklin MD Active CONCERTA 18 MG CR-TABS 1 po q a.m. METHYLPHENID ATE HCL 33976647313 No Longer Active Checo Conklin MD Active AMBIEN 5 MG TAB 1 po qHS PRN Insomnia ZOLPIDEM TARTRATE 37092373486 Active Checo Conklin MD Active TRAZODONE HCL 100 MG TAB 0.5 to 1 po qHS PRN Insomnia TRAZODONE HCL 27999666083 No Longer Active Checo Conklin MD Acti ve FIORICET 325-50-40 MG TAB 1 tablet by mouth four times daily as needed [id number] 36101553371 No Longer Active Checo Conklin MD Active PHENERGAN CREAM* 25mg applied to wrist q6hr PRN Nausea PHENERGAN CREAM* No Longer Active Checo Gonzales ctive FLONASE 50 MCG/ACT SUSP 1 spray each nostril am and hs FLUTICASONE PROPIONATE 06766352026 No Longer Active Checo Conklin MD Activ e ANTIPYRINE-BENZOCAINE 5.4-1.4 % SOLN 1-2 drops in affected ear BENZOCAINE-ANTIPYRINE 90844225504 No Longer Active Checo Conklin MD Active CEFDINIR 300 MG CAPS 1 po bid CEFDINIR 55664628 120 No Longer Active Checo Conklin MD Active PREDNISONE 20 MG TAB 2 tabs daily for 3 days, 1 t ab daily for 3 days, 1/2 tab daily for 2 days PREDNISONE 88452726321 No Longer Active Aracelis Conklin MD Active AZITHROMYCIN 250 MG TABS 2 po qd x 1 day, then 1 po qd x 4 days AZITHROMYCIN 05545596654 No Longer Active Checo Conklin MD Active PREDNISONE 20 MG TAB 2 tabs daily for 3 days, 1 t ab daily for 3 days, 1/2 tab daily for 2 days PREDNISONE 93561322935 No Longer Active Checo Conklin MD Active ZITHROMAX Z-KARTHIK 250 MG TABS 2 today, then 1 daily for 4 days 201 09/18/28 AZITHROMYCIN 81291876649 No Longer Active Paul Hamlin MD Active FOCALIN XR 10 MG [id number] 1 po q a.m. D EXMETHYLPHENIDATE HCL 12032193082 No Longer Active Paul Hamlin MD Activ e PERCOCET 10-325 MG TABS 1 tablet every 6 hours as needed for pain OXYCODONE-ACETAMINOPHEN 52904992280 No Longer Active Paul Hamlin MD Active LORTAB 5 5-500 MG TABS 1/2 to 1 tablet by mouth flaquito ry 4 hours as needed for pain HYDROCODONE-ACETAMINOPHEN 39311338143 No Longer Active Checo Conklin MD Active FOCALIN XR 15 MG [id number] 1 po q a.m. D EXMETHYLPHENIDATE HCL 65449389388 No Longer Active Checo Conklin MD Activ e ZOFRAN ODT 4 MG TBDP 1 po q6hr PRN Nausea ONDAN SETRON 64026515351 No Longer Active Checo Conklin MD Active PERCOCET 5-325 MG TABS 1 tablet by mouth every 6 hours as needed OXYCODONE-ACETAMINOPHEN 98958818427 No Longer Active Checo Conklin MD Active PYRIDIUM 200 MG TABS take 1 tab po TID prn urinary pain. 0 PHENAZOPYRIDINE HCL 34890695000 No Longer Active Checo Conklin MD Active FLUCONAZOLE 150 MG TABS take 1 tab po qday once 04/06 FLUCONAZOLE 55734616987 No Longer Active Dangelo Rangel MD Acti ve CIPRO 500 MG TAB 1 tablet by mouth twice daily CIPROFLOXACIN HCL 72906007673 No Longer Active Dangelo Rangel MD Active PYRIDIUM 200 MG TABS take 1 tab po TID prn urinary pain. 0 PYRIDIUM 200 MG TABS 7579914 PHENAZOPYRIDINE HCL Inactive PERCOCET 5-325 MG TABS 1 tablet by mouth every 6 hours as needed PERCOCET 5-325 MG TABS 8763549 OXYCODONE-ACETAMINOPHEN I nactive ZOFRAN ODT 4 MG TBDP 1 po q6hr PRN Nausea ZOFRAN ODT 4 MG TBDP 892151 ONDANSETRON Inactive FOCALIN XR 15 MG [id number] 1 po q a.m. F OCALIN XR 15 MG [id number] DEXMETHYLPHENIDATE HCL Inactive LORTAB 5 5-500 MG TABS 1/2 to 1 tablet by mouth flaquito ry 4 hours as needed for pain LORTAB 5 5-500 MG TABS HYDROCODONE-A CETAMINOPHEN Inactive PERCOCET 10-325 MG TABS 1 tablet every 6 hours as needed for pain PERCOCET 10-325 MG TABS 5822259 OXYCODONE-ACETAMINOPHEN Inactive FOCALIN XR 10 MG [id number] 1 po q a.m. F OCALIN XR 10 MG [id number] DEXMETHYLPHENIDATE HCL Inactive CEFDINIR 300 MG CAPS 1 po bid CEFDINIR 300 MG CAPS 20 0346 CEFDINIR Inactive ANTIPYRINE-BENZOCAINE 5.4-1.4 % SOLN 1-2 drops in affected ear ANTIPYRINE-BENZOCAINE 5.4-1.4 % SOLN 006165 BENZOCAINE-ANTIPYRINE I nactive FLONASE 50 MCG/ACT SUSP 1 spray each nostril am and hs FLONASE 50 MCG/ACT SUSP 833644 FLUTICASONE PROPIONATE Inactive PHENERGAN CREAM* 25mg applied to wrist q6hr PRN Nausea PHENERGAN CREAM* Inactive FIORICET 325-50-40 MG TAB 1 tablet by mouth four times daily as needed FIORICET 325-50-40 MG TAB ACETAMINOPHEN-C AFF-BUTALBITAL Inactive TRAZODONE HCL 100 MG TAB 0.5 to 1 po qHS PRN Insomnia TRAZODONE HCL 100 MG TAB 555058 TRAZODONE HCL Inactive CONCERTA 18 MG CR-TABS [...] s prn cough HYDROCODONE-ACETAMINOPHEN 5-325 MG TABS 113850 HYDROCODONE-ACETAMINOPHEN Inactive PHENAZOPYRIDINE HCL 200 MG TABS take 1 tab po TID for bladder pa in PHENAZOPYRIDINE HCL 200 MG TABS 5328509 PHENAZOPYRIDINE HCL Inactive HYDROCODONE-ACETAMINOPHEN 5-325 MG TABS 1 po q 6hr PRN Pain 2013 HYDROCODONE-ACETAMINOPHEN 5-325 MG TABS 137688 HYDROCODONE-ACETAMINOPHEN Inactive CELEXA 20 MG TABS 1 tablet by mouth daily CELEXA 20 MG TABS 123210 CITALOPRAM HYDROBROMIDE Inactive REGLAN 10 MG TAB 1 po TID PRN Nausea REGLAN 10 MG TAB 075872 METOCLOPRAMIDE HCL Inactive LAMISIL 250 MG TAB 1 po qd LAMISIL 250 MG TAB 241822 TERBINAFINE HCL Inactive CIPRO 500 MG TAB 1 tablet by mouth twice daily CIPRO 500 MG TAB 716977 CIPROFLOXACIN HCL Inactive FLUCONAZOLE 150 MG TABS take 1 tab po qday once 04/06 FLUCONAZOLE 150 MG TABS 510386 FLUCONAZOLE Inactive ZITHROMAX Z-KARTHIK 250 MG TABS 2 today, then 1 daily for 4 days 201 09/18/28 ZITHROMAX Z-KARTHIK 250 MG TABS 7825034 AZITHROMYCIN Inac tive PREDNISONE 20 MG TAB 2 tabs daily for 3 days, 1 t ab daily for 3 days, 1/2 tab daily for 2 days PREDNISONE 20 MG TAB 995159 PREDNISON E Inactive AZITHROMYCIN 250 MG TABS 2 po qd x 1 day, then 1 po qd x 4 days AZITHROMYCIN 250 MG TABS 3187845 AZITHROMYCIN Inactiv e PREDNISONE 20 MG TAB 2 tabs daily for 3 days, 1 t ab daily for 3 days, 1/2 tab daily for 2 days PREDNISONE 20 MG TAB 413364 PREDNISON E Inactive CEFDINIR 300 MG CAPS by mouth twice a day CEFDINIR 300 MG CAPS 412760 CEFDINIR Inactive TRIAMCINOLONE ACETONIDE 0.1 % OINT Apply to affected a reas TID for up to 2 weeks TRIAMCINOLONE ACETONIDE 0.1 % OINT 630632 6 TRIAMCINOLONE ACETONIDE Inactive PREDNISONE 20 MG TAB 2 tabs daily for 3 days, 1 t ab daily for 3 days, 1/2 tab daily for 2 days PREDNISONE 20 MG TAB 983161 PREDNISON E Inactive BACTRIM DS 800-160 MG TABS 1 po BID x 7 days 0 BACTRIM DS 800-160 MG TABS SULFAMETHOXAZOLE-TRIMETHOPRIM Inactive CIPRO 500 MG TAB 1 tablet by mouth twice daily CIPRO 500 MG TAB 530896 CIPROFLOXACIN HCL Inactive AZITHROMYCIN 250 MG TABS 2 po qd x 1 day, then 1 po qd x 4 days AZITHROMYCIN 250 MG TABS 7416266 AZITHROMYCIN Inactiv e Immunizations Vaccine Administration Date [...] Comp. Metabolic Panel, Lipid Panel - Chemistry carbon dioxide, venous blood 30.9 mmol/L 21.0-32 .0 chloride, serum 102 mmol/L 98-107 potassium, serum 4.1 mmol/L 3.5-5.2 sodium, serum 139 mmol/L 591-978 3975/10/24 blood glucose 78 mg/dL 65-110 urea nitrogen, blood 11 mg/dL 7-18 creatinine, serum 0.70 mg/dL 0.60-1.30 alanine aminotransferase (SGPT), serum 12 U/L 12-78 aspartate aminotransferase (SGOT), serum 14 U/L 15-37 alkaline phosphatase, serum 64 U/L 50-136 calcium, serum 8.6 mg/dL 8.5-10.1 bilirubin, serum, total 0.80 mg/dL 0.00-1.00 cholesterol, serum 147 mg/dL 161-638 2831/10/24 triglyceride, serum, fasting 112 mg/dL 30-200 HDL [...] 5.0-8.5 Encounters Code Encounter Date Provider Facility CPT-22169 Level 3 Est. Patient 14:38:41 CDT Checo Conklin MD [facility] CPT-46352 Level 3 Est. Patient 15:22:03 RADIO TELEVISION ANNOUNCER Thomas reynolds DO [facility] CPT-93822 Level 3 Est. Patient 13:34:17 RADIO TELEVISION ANNOUNCER Checo Conklin MD [facility] CPT-28224 Level 3 Est. Patient 12:29:32 CDT Dangelo arroyo MD [facility] CPT-42661 Level 3 Est. Patient 16:53:02 CDT Checo Conklin MD [facility] CPT-57936 Level 3 Est. Patient 16:37:13 CDT Checo Conklin MD [facility] CPT-90947 Level 3 Est. Patient 16:16:59 CDT Paul Hamlin MD [facility] CPT-00612 Level 3 Est. Patient 14:20:13 CDT Dangelo arroyo MD [facility] CPT-84876 Level 4 Est. Patient 11:29:33 CDT Checo Conklin MD [facility] CPT-88846 Level 3 Est. Patient 17:08:31 CDT Checo Conklin MD [facility] CPT-74088 Level 3 Est. Patient 16:50:42 RADIO TELEVISION ANNOUNCER Checo Conklin MD [facility] CPT-59677 Level 4 Est. Patient 09:26:08 RADIO TELEVISION ANNOUNCER Checo Conklin MD [facility] CPT-19023 Level 3 Est. Patient 11:37:10 CDT Checo Conklin MD [facility] CPT-90896 Level 4 Est. Patient 14:07:38 CDT Checo Conklin MD [facility] CPT-62599 Level 3 Est. Patient 09:54:41 CDT Checo Conklin MD [facility] CPT-93643 Level 3 Est. Patient 11:10:54 CDT Paul Hamlin MD [facility] CPT-69451 Level 3 Est. Patient 14:16:56 RADIO TELEVISION ANNOUNCER Checo Conklin MD [facility] CPT-34499 Level 3 Est. Patient 11:04:11 RADIO TELEVISION ANNOUNCER Checo Conklin MD [facility] CPT-96048 Level 3 Est. Patient 17:09:26 CDT Dangelo arroyo MD [facility] CPT-59019 Level 3 Est. Patient 16:54:37 CDT Checo Conklin MD [facility] Procedures Code Procedure Name Date Entry Date Standard Desc ription CPT-OV Office Visit 11:31:28 CDT CPT-19119 Tubersol 09:39:29 CDT CPT-J2550 Phenergan 25 mg (Promethazine) 13:59:02 RADIO TELEVISION ANNOUNCER CPT-J1885 Toradol 60 mg (Ketorolac) 13:59:02 RADIO TELEVISION ANNOUNCER 2012
--- OUTSIDE RECORDS SUMMARY | 2019-09-29 02:32 | XMS REPORT | Clinical Summary ---
Author Author Admin, Bethany Gonzales Organization [facility] Address Unknown Phone Unavailable Allergies, Adverse Reactions, [...] MD Concussion, unspecified UTI 599.0 Resolved Checo Coknlin MD Urinary tract infection, site not specified [...] q 4 hour s prn cough HYDROCODONE-ACETAMINOPHEN 28273132842 Active Paul montgomery MD Active CEFDINIR 300 MG CAPS by mouth twice a day CEFDI JAZZY 75697321456 Active Dangelo Rangel MD Active CELEXA 20 MG TABS 1 tablet by mouth daily CITAL OPRAM HYDROBROMIDE 51908508657 Active Checo Conklin MD Active BUPROPION HCL (SMOKING DETER) 150 MG [id number] 1 a day for 1 week then 1 twice a day BUPROPION HCL (SMOKING DETER) 00927107981 No Lo nger Active Checo Conklin MD Active SIMVASTATIN 20 MG TABS 1 po qd SIMVASTATIN 4330116818 4 Active Checo Conklin MD Active CHANTIX STARTING MONTH KARTHIK 0.5 MG X 11 & 1 MG X 42 TAB S 0.5mg daily for 3 days, then 0.5mg BID for 4 days, then 1mg BID VARENICLINE TARTRATE 69971284611 No Longer Active Checo Conklin MD Activ e XANAX 0.5 MG TABS 1 po BID PRN anxiety ALPRAZOLAM 06425935820 Active Checo Conklin MD Active CONCERTA 18 MG CR-TABS 1 po q a.m. METHYLPHENID ATE HCL 80197415885 No Longer Active Checo Conklin MD Active REGLAN 10 MG TAB 1 po TID PRN Nausea METOCLOPRA MIDE HCL 79583822115 Active Checo Conklin MD Active AMBIEN 5 MG TAB 1 po qHS PRN Insomnia ZOLPIDEM TARTRATE 20862925171 Active Checo Conklin MD Active TRAZODONE HCL 100 MG TAB 0.5 to 1 po qHS PRN Insomnia TRAZODONE HCL 41465238414 No Longer Active Checo Conklin MD Acti ve FIORICET 325-50-40 MG TAB 1 tablet by mouth four times daily as needed [id number] 33607302181 No Longer Active Checo Conklin MD Active PHENERGAN CREAM* 25mg applied to wrist q6hr PRN Nausea PHENERGAN CREAM* No Longer Active Checo Conklin MD A ctive LAMISIL 250 MG TAB 1 po qd TERBINAFINE HCL 2096106304 1 Active Checo Conklin MD Active FLONASE 50 MCG/ACT SUSP 1 spray each nostril am and hs FLUTICASONE PROPIONATE 50893379703 No Longer Active Checo Conklin MD Activ e ANTIPYRINE-BENZOCAINE 5.4-1.4 % SOLN 1-2 drops in affected ear BENZOCAINE-ANTIPYRINE 41970243965 No Longer Active Checo Conklin MD Active CEFDINIR 300 MG CAPS 1 po bid CEFDINIR 64718044 120 No Longer Active Checo Conklin MD Active PREDNISONE 20 MG TAB 2 tabs daily for 3 days, 1 t ab daily for 3 days, 1/2 tab daily for 2 days PREDNISONE 04689299507 No Longer Active Aracelis Conklin MD Active AZITHROMYCIN 250 MG TABS 2 po qd x 1 day, then 1 po qd x 4 days AZITHROMYCIN 14447781504 No Longer Active Checo Conklin MD Active PREDNISONE 20 MG TAB 2 tabs daily for 3 days, 1 t ab daily for 3 days, 1/2 tab daily for 2 days PREDNISONE 04848288917 No Longer Active Checo Conklin MD Active ZITHROMAX Z-KARTHIK 250 MG TABS 2 today, then 1 daily for 4 days 201 09/18/28 AZITHROMYCIN 33822794553 No Longer Active Paul Hamlin MD Active FOCALIN XR 10 MG [id number] 1 po q a.m. D EXMETHYLPHENIDATE HCL 41112080958 No Longer Active Paul Hamlin MD Activ e PERCOCET 10-325 MG TABS 1 tablet every 6 hours as needed for pain OXYCODONE-ACETAMINOPHEN 91102211122 No Longer Active Paul Hamlin MD Active LORTAB 5 5-500 MG TABS 1/2 to 1 tablet by mouth flaquito ry 4 hours as needed for pain HYDROCODONE-ACETAMINOPHEN 04440508637 No Longer Active Checo Conklin MD Active FOCALIN XR 15 MG [id number] 1 po q a.m. D EXMETHYLPHENIDATE HCL 58630623933 No Longer Active Checo Conklin MD Activ e ZOFRAN ODT 4 MG TBDP 1 po q6hr PRN Nausea ONDAN SETRON 41351542855 No Longer Active Checo Conklin MD Active PERCOCET 5-325 MG TABS 1 tablet by mouth every 6 hours as needed OXYCODONE-ACETAMINOPHEN 31413852083 No Longer Active Checo Conklin MD Active PYRIDIUM 200 MG TABS take 1 tab po TID prn urinary pain. 0 PHENAZOPYRIDINE HCL 10273297404 No Longer Active Checo Conklin MD Active FLUCONAZOLE 150 MG TABS take 1 tab po qday once 04/06 FLUCONAZOLE 67775765530 No Longer Active Dangelo Rangel MD Acti ve CIPRO 500 MG TAB 1 tablet by mouth twice daily CIPROFLOXACIN HCL 93380031896 No Longer Active Dangelo Rangel MD Active PYRIDIUM 200 MG TABS take 1 tab po TID prn urinary pain. 0 PYRIDIUM 200 MG TABS 4914456 PHENAZOPYRIDINE HCL Inactive PERCOCET 5-325 MG TABS 1 tablet by mouth every 6 hours as needed PERCOCET 5-325 MG TABS 5153077 OXYCODONE-ACETAMINOPHEN I nactive ZOFRAN ODT 4 MG TBDP 1 po q6hr PRN Nausea ZOFRAN ODT 4 MG TBDP 759926 ONDANSETRON Inactive FOCALIN XR 15 MG [id number] 1 po q a.m. F OCALIN XR 15 MG [id number] DEXMETHYLPHENIDATE HCL Inactive LORTAB 5 5-500 MG TABS 1/2 to 1 tablet by mouth flaquito ry 4 hours as needed for pain LORTAB 5 5-500 MG TABS HYDROCODONE-A CETAMINOPHEN Inactive PERCOCET 10-325 MG TABS 1 tablet every 6 hours as needed for pain PERCOCET 10-325 MG TABS 0923735 OXYCODONE-ACETAMINOPHEN Inactive FOCALIN XR 10 MG [id number] 1 po q a.m. F OCALIN XR 10 MG [id number]-HQC DEXMETHYLPHENIDATE HCL Inactive CEFDINIR 300 MG CAPS 1 po bid CEFDINIR 300 MG CAPS 20 0346 CEFDINIR Inactive ANTIPYRINE-BENZOCAINE 5.4-1.4 % SOLN 1-2 drops in affected ear ANTIPYRINE-BENZOCAINE 5.4-1.4 % SOLN 895465 BENZOCAINE-ANTIPYRINE I nactive FLONASE 50 MCG/ACT SUSP 1 spray each nostril am and hs FLONASE 50 MCG/ACT SUSP 417162 FLUTICASONE PROPIONATE Inactive PHENERGAN CREAM* 25mg applied to wrist q6hr PRN Nausea PHENERGAN CREAM* Inactive FIORICET 325-50-40 MG TAB 1 tablet by mouth four times daily as needed FIORICET 325-50-40 MG TAB ACETAMINOPHEN-C AFF-BUTALBITAL Inactive TRAZODONE HCL 100 MG TAB 0.5 to 1 po qHS PRN Insomnia TRAZODONE HCL 100 MG TAB 568610 TRAZODONE HCL Inactive CONCERTA 18 MG CR-TABS [...] mouth twice daily CIPRO 500 MG TAB 489579 CIPROFLOXACIN HCL Inactive FLUCONAZOLE 150 MG TABS take 1 tab po qday once 04/06 FLUCONAZOLE 150 MG TABS 463789 FLUCONAZOLE Inactive ZITHROMAX Z-KARTHIK 250 MG TABS 2 today, then 1 daily for 4 days 201 09/18/28 ZITHROMAX Z-KARTHIK 250 MG TABS 4357547 AZITHROMYCIN Inac tive PREDNISONE 20 MG TAB 2 tabs daily for 3 days, 1 t ab daily for 3 days, 1/2 tab daily for 2 days PREDNISONE 20 MG TAB 852203 PREDNISON E Inactive AZITHROMYCIN 250 MG TABS 2 po qd x 1 day, then 1 po qd x 4 days AZITHROMYCIN 250 MG TABS 2146642 AZITHROMYCIN Inactiv e PREDNISONE 20 MG TAB 2 tabs daily for 3 days, 1 t ab daily for 3 days, 1/2 tab daily for 2 days PREDNISONE 20 MG TAB 295159 PREDNISON E Inactive Immunizations Vaccine Administration Date [...] 5.3 % 4.3-6.0 sodium, serum 139 mmol/L 176-519 3393/01/09 potassium, serum 4.3 mmol/L 3.5-5.2 chloride, serum [...] 1.10 mg/dL 0.00-1.00 cholesterol, serum 222 mg/dL 363-834 3057/01/09 triglyceride, serum, fasting 92 mg/dL 30-200 HDL [...] 142-424 Encounters Code Encounter Date Provider Facility CPT-68757 Level 3 Est. Patient 16:16:59 CDT Paul Hamlin MD [facility] CPT-14287 Level 3 Est. Patient 14:20:13 CDT Dangelo arroyo MD [facility] CPT-22429 Level 4 Est. Patient 11:29:33 CDT Checo Conklin MD [facility] CPT-61921 Level 3 Est. Patient 17:08:31 CDT Checo Conklin MD [facility] CPT-93362 Level 3 Est. Patient 16:50:42 MECHANICAL PROJECT ENGINEER Checo Conklin MD [facility] CPT-96646 Level 4 Est. Patient 09:26:08 MECHANICAL PROJECT ENGINEER Checo Conklin MD [facility] CPT-45590 Level 3 Est. Patient 11:37:10 CDT Checo Conklin MD [facility] CPT-82099 Level 4 Est. Patient 14:07:38 CDT Checo Conklin MD [facility] CPT-39414 Level 3 Est. Patient 09:54:41 CDT Checo Conklin MD [facility] CPT-65138 Level 3 Est. Patient 11:10:54 CDT Paul Hamlin MD [facility] CPT-43660 Level 3 Est. Patient 14:16:56 MECHANICAL PROJECT ENGINEER Checo Conklin MD [facility] CPT-26881 Level 3 Est. Patient 11:04:11 MECHANICAL PROJECT ENGINEER Checo Conklin MD [facility] CPT-97784 Level 3 Est. Patient 17:09:26 CDT Dangelo arroyo MD [facility] CPT-75642 Level 3 Est. Patient 16:54:37 CDT Checo Conklin MD [facility] Procedures Code Procedure Name Date Entry Date Standard Desc ription CPT-OV Office Visit 11:31:28 CDT CPT-41440 Tubersol 09:39:29 CDT CPT-J2550 Phenergan 25 mg (Promethazine) 13:59:02 MECHANICAL PROJECT ENGINEER CPT-J1885 Toradol 60 mg (Ketorolac) 13:59:02 MECHANICAL PROJECT ENGINEER 2012
--- OUTSIDE RECORDS SUMMARY | 2019-09-29 02:32 | XMS REPORT | Clinical Summary ---
Author Author Admin, Bethany Gonzales Organization [facility] Address Unknown Phone Unavailable Allergies, Adverse [...] Marks DO Abdominal pain, unspecified site FH BREAST CANCER ICD-V16.3 Inactive [...] 1 po qd x 4 days AZITHROMYCIN 36182624302 No Longer Active Checo Conklin MD Active HYDROCODONE-ACETAMINOPHEN 5-325 MG TABS 1 po q 6hr PRN Pain 2013 HYDROCODONE-ACETAMINOPHEN 27652005667 No Longer Active Lenora Conklin MD Active PHENAZOPYRIDINE HCL 200 MG TABS take 1 tab po TID for bladder pa in PHENAZOPYRIDINE HCL 31260931375 No Longer Active Checo Joshua Active CIPRO 500 MG TAB 1 tablet by mouth twice daily CIPROFLOXACIN HCL 83532862428 No Longer Active Dangelo Rangel MD Active HYDROCODONE-ACETAMINOPHEN 5-325 MG TABS 1/2 to 1 po q 4 hour s prn cough HYDROCODONE-ACETAMINOPHEN 72248694767 No Longer Activ e Dangelo Rangel MD Active BACTRIM DS 800-160 MG TABS 1 po BID x 7 days 0 SULFAMETHOXAZOLE-TRIMETHOPRIM 40408864783 No Longer Active Checo Conklin MD Active PREDNISONE 20 MG TAB 2 tabs daily for 3 days, 1 t ab daily for 3 days, 1/2 tab daily for 2 days PREDNISONE 26399476681 No Longer Active Checo Conklin MD Active TRIAMCINOLONE ACETONIDE 0.1 % OINT Apply to affected a reas TID for up to 2 weeks TRIAMCINOLONE ACETONIDE 65808708261 No Longer A ctive Checo Conklin MD Active CEFDINIR 300 MG CAPS by mouth twice a day CEFDI JAZZY 11828225512 No Longer Active Dangelo Rangel MD Active CELEXA 20 MG TABS 1 tablet by mouth daily CITAL OPRAM HYDROBROMIDE 28663814787 Active Checo Conklin MD Active BUPROPION HCL (SMOKING DETER) 150 MG [id number] 1 a day for 1 week then 1 twice a day BUPROPION HCL (SMOKING DETER) 17241004191 No Lo nger Active Checo Conklin MD Active SIMVASTATIN 20 MG TABS 1 po qd SIMVASTATIN 1625549529 5 Active Checo Conklin MD Active CHANTIX STARTING MONTH KARTHIK 0.5 MG X 11 & 1 MG X 42 TAB S 0.5mg daily for 3 days, then 0.5mg BID for 4 days, then 1mg BID VARENICLINE TARTRATE 99204067640 No Longer Active Checo Conklin MD Activ e XANAX 0.5 MG TABS 1 po BID PRN anxiety ALPRAZOLAM 86268966859 Active Checo Conklin MD Active CONCERTA 18 MG CR-TABS 1 po q a.m. METHYLPHENID ATE HCL 88790471560 No Longer Active Checo Conklin MD Active REGLAN 10 MG TAB 1 po TID PRN Nausea METOCLOPRA MIDE HCL 96951277566 Active Checo Conklin MD Active AMBIEN 5 MG TAB 1 po qHS PRN Insomnia ZOLPIDEM TARTRATE 03901630199 Active Checo Conklin MD Active TRAZODONE HCL 100 MG TAB 0.5 to 1 po qHS PRN Insomnia TRAZODONE HCL 56545947614 No Longer Active Checo Conklin MD Acti ve FIORICET 325-50-40 MG TAB 1 tablet by mouth four times daily as needed [id number] 42894243323 No Longer Active Checo Conklin MD Active PHENERGAN CREAM* 25mg applied to wrist q6hr PRN Nausea PHENERGAN CREAM* No Longer Active Checo Conklin MD A ctive LAMISIL 250 MG TAB 1 po qd TERBINAFINE HCL 0408491827 1 Active Checo Conklin MD Active FLONASE 50 MCG/ACT SUSP 1 spray each nostril am and hs FLUTICASONE PROPIONATE 75901385780 No Longer Active Checo Conklin MD Activ e ANTIPYRINE-BENZOCAINE 5.4-1.4 % SOLN 1-2 drops in affected ear BENZOCAINE-ANTIPYRINE 70397518303 No Longer Active Checo Conklin MD Active CEFDINIR 300 MG CAPS 1 po bid CEFDINIR 42773117 120 No Longer Active Checo Conklin MD Active PREDNISONE 20 MG TAB 2 tabs daily for 3 days, 1 t ab daily for 3 days, 1/2 tab daily for 2 days PREDNISONE 60694021033 No Longer Active Aracelis Conklin MD Active AZITHROMYCIN 250 MG TABS 2 po qd x 1 day, then 1 po qd x 4 days AZITHROMYCIN 11106329997 No Longer Active Checo Conklin MD Active PREDNISONE 20 MG TAB 2 tabs daily for 3 days, 1 t ab daily for 3 days, 1/2 tab daily for 2 days PREDNISONE 04008864687 No Longer Active Checo Conklin MD Active ZITHROMAX Z-KARTHIK 250 MG TABS 2 today, then 1 daily for 4 days 201 09/18/28 AZITHROMYCIN 13651303035 No Longer Active Paul Hamlin MD Active FOCALIN XR 10 MG [id number] 1 po q a.m. D EXMETHYLPHENIDATE HCL 93664667303 No Longer Active Paul Hamlin MD Activ e PERCOCET 10-325 MG TABS 1 tablet every 6 hours as needed for pain OXYCODONE-ACETAMINOPHEN 16381204547 No Longer Active Paul Hamlin MD Active LORTAB 5 5-500 MG TABS 1/2 to 1 tablet by mouth flaquito ry 4 hours as needed for pain HYDROCODONE-ACETAMINOPHEN 17751697183 No Longer Active Checo Conklin MD Active FOCALIN XR 15 MG [id number] 1 po q a.m. D EXMETHYLPHENIDATE HCL 97375619464 No Longer Active Checo Conklin MD Activ e ZOFRAN ODT 4 MG TBDP 1 po q6hr PRN Nausea ONDAN SETRON 71988407627 No Longer Active Checo Conklin MD Active PERCOCET 5-325 MG TABS 1 tablet by mouth every 6 hours as needed OXYCODONE-ACETAMINOPHEN 58981794626 No Longer Active Checo Conklin MD Active PYRIDIUM 200 MG TABS take 1 tab po TID prn urinary pain. 0 PHENAZOPYRIDINE HCL 51462069845 No Longer Active Checo Conklin MD Active FLUCONAZOLE 150 MG TABS take 1 tab po qday once 04/06 FLUCONAZOLE 28266543768 No Longer Active Dangelo Rangel MD Acti ve CIPRO 500 MG TAB 1 tablet by mouth twice daily CIPROFLOXACIN HCL 64772834957 No Longer Active Dangelo Rangel MD Active PYRIDIUM 200 MG TABS take 1 tab po TID prn urinary pain. 0 PYRIDIUM 200 MG TABS 7029254 PHENAZOPYRIDINE HCL Inactive PERCOCET 5-325 MG TABS 1 tablet by mouth every 6 hours as needed PERCOCET 5-325 MG TABS 0262694 OXYCODONE-ACETAMINOPHEN I nactive ZOFRAN ODT 4 MG TBDP 1 po q6hr PRN Nausea ZOFRAN ODT 4 MG TBDP 123102 ONDANSETRON Inactive FOCALIN XR 15 MG [id number] 1 po q a.m. F OCALIN XR 15 MG [id number]-SCJ DEXMETHYLPHENIDATE HCL Inactive LORTAB 5 5-500 MG TABS 1/2 to 1 tablet by mouth flaquito ry 4 hours as needed for pain LORTAB 5 5-500 MG TABS HYDROCODONE-A CETAMINOPHEN Inactive PERCOCET 10-325 MG TABS 1 tablet every 6 hours as needed for pain PERCOCET 10-325 MG TABS 1121409 OXYCODONE-ACETAMINOPHEN Inactive FOCALIN XR 10 MG [id number] 1 po q a.m. F OCALIN XR 10 MG [id number] DEXMETHYLPHENIDATE HCL Inactive CEFDINIR 300 MG CAPS 1 po bid CEFDINIR 300 MG CAPS 20 0346 CEFDINIR Inactive ANTIPYRINE-BENZOCAINE 5.4-1.4 % SOLN 1-2 drops in affected ear ANTIPYRINE-BENZOCAINE 5.4-1.4 % SOLN 366165 BENZOCAINE-ANTIPYRINE I nactive FLONASE 50 MCG/ACT SUSP 1 spray each nostril am and hs FLONASE 50 MCG/ACT SUSP 479675 FLUTICASONE PROPIONATE Inactive PHENERGAN CREAM* 25mg applied to wrist q6hr PRN Nausea PHENERGAN CREAM* Inactive FIORICET 325-50-40 MG TAB 1 tablet by mouth four times daily as needed FIORICET 325-50-40 MG TAB ACETAMINOPHEN-C AFF-BUTALBITAL Inactive TRAZODONE HCL 100 MG TAB 0.5 to 1 po qHS PRN Insomnia TRAZODONE HCL 100 MG TAB 740948 TRAZODONE HCL Inactive CONCERTA 18 MG CR-TABS [...] s prn cough HYDROCODONE-ACETAMINOPHEN 5-325 MG TABS 989313 HYDROCODONE-ACETAMINOPHEN Inactive PHENAZOPYRIDINE HCL 200 MG TABS take 1 tab po TID for bladder pa in PHENAZOPYRIDINE HCL 200 MG TABS 7744500 PHENAZOPYRIDINE HCL Inactive HYDROCODONE-ACETAMINOPHEN 5-325 MG TABS 1 po q 6hr PRN Pain 2013 HYDROCODONE-ACETAMINOPHEN 5-325 MG TABS 315305 HYDROCODONE-ACETAMINOPHEN Inactive CIPRO 500 MG TAB 1 tablet by mouth twice daily CIPRO 500 MG TAB 853051 CIPROFLOXACIN HCL Inactive FLUCONAZOLE 150 MG TABS take 1 tab po qday once 04/06 FLUCONAZOLE 150 MG TABS 240226 FLUCONAZOLE Inactive ZITHROMAX Z-KARTHIK 250 MG TABS 2 today, then 1 daily for 4 days 201 09/18/28 ZITHROMAX Z-KARTHIK 250 MG TABS 5538671 AZITHROMYCIN Inac tive PREDNISONE 20 MG TAB 2 tabs daily for 3 days, 1 t ab daily for 3 days, 1/2 tab daily for 2 days PREDNISONE 20 MG TAB 349329 PREDNISON E Inactive AZITHROMYCIN 250 MG TABS 2 po qd x 1 day, then 1 po qd x 4 days AZITHROMYCIN 250 MG TABS 9713651 AZITHROMYCIN Inactiv e PREDNISONE 20 MG TAB 2 tabs daily for 3 days, 1 t ab daily for 3 days, 1/2 tab daily for 2 days PREDNISONE 20 MG TAB 968400 PREDNISON E Inactive CEFDINIR 300 MG CAPS by mouth twice a day CEFDINIR 300 MG CAPS 492233 CEFDINIR Inactive TRIAMCINOLONE ACETONIDE 0.1 % OINT Apply to affected a reas TID for up to 2 weeks TRIAMCINOLONE ACETONIDE 0.1 % OINT 400803 6 TRIAMCINOLONE ACETONIDE Inactive PREDNISONE 20 MG TAB 2 tabs daily for 3 days, 1 t ab daily for 3 days, 1/2 tab daily for 2 days PREDNISONE 20 MG TAB 936687 PREDNISON E Inactive BACTRIM DS 800-160 MG TABS 1 po BID x 7 days 0 BACTRIM DS 800-160 MG TABS SULFAMETHOXAZOLE-TRIMETHOPRIM Inactive CIPRO 500 MG TAB 1 tablet by mouth twice daily CIPRO 500 MG TAB 087717 CIPROFLOXACIN HCL Inactive AZITHROMYCIN 250 MG TABS 2 po qd x 1 day, then 1 po qd x 4 days AZITHROMYCIN 250 MG TABS 3122731 AZITHROMYCIN Inactiv e Immunizations Vaccine Administration Date [...] 4.1 mmol/L 3.5-5.2 sodium, serum 139 mmol/L 320-177 5401/10/24 urea nitrogen, blood 11 mg/dL 7-18 creatinine, serum 0.70 mg/dL 0.60-1.30 alanine aminotransferase (SGPT), serum 12 U/L 12-78 aspartate aminotransferase (SGOT), serum 14 U/L 15-37 alkaline phosphatase, serum 64 U/L 50-136 calcium, serum 8.6 mg/dL 8.5-10.1 bilirubin, serum, total 0.80 mg/dL 0.00-1.00 cholesterol, serum 147 mg/dL 627-165 7434/10/24 triglyceride, serum, fasting 112 mg/dL 30-200 HDL [...] Clear Encounters Code Encounter Date Provider Facility CPT-34058 Level 3 Est. 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 Patient 13:34:17 SALES MERCHANDISE ASSOCIATE Checo Conklin MD [facility] CPT-94401 Level 3 Est. Patient 12:29:32 CDT Dangelo arroyo MD [facility]-16230 Level 3 Est. Patient 16:53:02 CDT Checo Conklin MD [facility] CPT-32821 Level 3 Est. Patient 16:37:13 CDT Checo Conklin MD [facility] CPT-34503 Level 3 Est. Patient 16:16:59 CDT Paul Hamlin MD [facility]-79271 Level 3 Est. Patient 14:20:13 CDT Dangelo arroyo MD [facility] CPT-73491 Level 4 Est. Patient 11:29:33 CDT Checo Conklin MD [facility] CPT-70955 Level 3 Est. Patient 17:08:31 CDT Checo Conklin MD [facility] CPT-98155 Level 3 Est. Patient 16:50:42 SALES MERCHANDISE ASSOCIATE Checo Conklin MD [facility] CPT-87673 Level 4 Est. Patient 09:26:08 SALES MERCHANDISE ASSOCIATE Checo Conklin MD [facility]-39875 Level 3 Est. Patient 11:37:10 CDT Checo Conklin MD [facility] CPT-85759 Level 4 Est. Patient 14:07:38 CDT Checo Conklin MD [facility] CPT-89946 Level 3 Est. Patient 09:54:41 CDT Checo Conklin MD [facility] CPT-63841 Level 3 Est. Patient 11:10:54 CDT Paul Hamlin MD [facility] CPT-67272 Level 3 Est. Patient 14:16:56 SALES MERCHANDISE ASSOCIATE Checo Conklin MD [facility] CPT-14778 Level 3 Est. Patient 11:04:11 SALES MERCHANDISE ASSOCIATE Checo Conklin MD [facility] CPT-80819 Level 3 Est. Patient 17:09:26 CDT Dangelo arroyo MD [facility] CPT-74255 Level 3 Est. Patient 16:54:37 CDT Checo Conklin MD [facility] Procedures Code Procedure Name Date Entry Date Standard Desc ription CPT-OV Office Visit 11:31:28 CDT CPT-12270 Tubersol 09:39:29 CDT CPT-J2550 Phenergan 25 mg (Promethazine) 13:59:02 SALES MERCHANDISE ASSOCIATE CPT-J1885 Toradol 60 mg (Ketorolac) 13:59:02 SALES MERCHANDISE ASSOCIATE 2012
--- OUTSIDE RECORDS SUMMARY | 2019-09-29 02:32 | XMS REPORT | Clinical Summary ---
Author Author Admin, Bethany Ayala [facility] Address Unknown Phone Unavailable Allergies, Adverse [...] 1 po qd x 4 days AZITHROMYCIN 33312728309 No Longer Active Checo Conklin MD Active HYDROCODONE-ACETAMINOPHEN 5-325 MG TABS 1 po q 6hr PRN Pain 2013 HYDROCODONE-ACETAMINOPHEN 40675193821 No Longer Active Lenora Conklin MD Active PHENAZOPYRIDINE HCL 200 MG TABS take 1 tab po TID for bladder pa in PHENAZOPYRIDINE HCL 84856877029 No Longer Active Checo Joshua Active CIPRO 500 MG TAB 1 tablet by mouth twice daily CIPROFLOXACIN HCL 22336804872 No Longer Active Dangelo Rangel MD Active HYDROCODONE-ACETAMINOPHEN 5-325 MG TABS 1/2 to 1 po q 4 hour s prn cough HYDROCODONE-ACETAMINOPHEN 18748709430 No Longer Activ e Dangelo Rangel MD Active BACTRIM DS 800-160 MG TABS 1 po BID x 7 days 0 SULFAMETHOXAZOLE-TRIMETHOPRIM 08965643187 No Longer Active Checo Conklin MD Active PREDNISONE 20 MG TAB 2 tabs daily for 3 days, 1 t ab daily for 3 days, 1/2 tab daily for 2 days PREDNISONE 42290104761 No Longer Active Checo Conklin MD Active TRIAMCINOLONE ACETONIDE 0.1 % OINT Apply to affected a reas TID for up to 2 weeks TRIAMCINOLONE ACETONIDE 71172699589 No Longer A ctive Checo Conklin MD Active CEFDINIR 300 MG CAPS by mouth twice a day CEFDI JAZZY 09142225579 No Longer Active Dangelo Rangel MD Active CELEXA 20 MG TABS 1 tablet by mouth daily CITAL OPRAM HYDROBROMIDE 39655109274 Active Checo Conklin MD Active BUPROPION HCL (SMOKING DETER) 150 MG CL90R-GML 1 a day for 1 week then 1 twice a day BUPROPION HCL (SMOKING DETER) 98049288042 No Lo nger Active Checo Conklin MD Active SIMVASTATIN 20 MG TABS 1 po qd SIMVASTATIN 9451639429 5 Active Checo Conklin MD Active CHANTIX STARTING MONTH KARTHIK 0.5 MG X 11 & 1 MG X 42 TAB S 0.5mg daily for 3 days, then 0.5mg BID for 4 days, then 1mg BID VARENICLINE TARTRATE 91356181659 No Longer Active Checo Conklin MD Activ e XANAX 0.5 MG TABS 1 po BID PRN anxiety ALPRAZOLAM 52323264980 Active Jillina Frajoel [employer]ENT LAMP REPLACER Active CONCERTA 18 MG CR-TABS 1 po q a.m. METHYLPHENID ATE HCL 43140199296 No Longer Active Checo Conklin MD Active REGLAN 10 MG TAB 1 po TID PRN Nausea METOCLOPRA MIDE HCL 64803055180 Active Checo Conklin MD Active AMBIEN 5 MG TAB 1 po qHS PRN Insomnia ZOLPIDEM TARTRATE 40061106094 Active Jillina Frazell FLUORESCENT LAMP REPLACER Active TRAZODONE HCL 100 MG TAB 0.5 to 1 po qHS PRN Insomnia TRAZODONE HCL 19197109779 No Longer Active Checo Conklin MD Acti ve FIORICET 325-50-40 MG TAB 1 tablet by mouth four times daily as needed [id number] 43755448800 No Longer Active Checo Conklin MD Active PHENERGAN CREAM* 25mg applied to wrist q6hr PRN Nausea PHENERGAN CREAM* No Longer Active Checo Conklin MD A ctive LAMISIL 250 MG TAB 1 po qd TERBINAFINE HCL 6540478363 1 Active Checo Conklin MD Active FLONASE 50 MCG/ACT SUSP 1 spray each nostril am and hs FLUTICASONE PROPIONATE 40852781308 No Longer Active Checo Conklin MD Activ e ANTIPYRINE-BENZOCAINE 5.4-1.4 % SOLN 1-2 drops in affected ear BENZOCAINE-ANTIPYRINE 78616401847 No Longer Active Checo Conklin MD Active CEFDINIR 300 MG CAPS 1 po bid CEFDINIR 96604220 120 No Longer Active Checo Conklin MD Active PREDNISONE 20 MG TAB 2 tabs daily for 3 days, 1 t ab daily for 3 days, 1/2 tab daily for 2 days PREDNISONE 26482608156 No Longer Active Aracelis Conklin MD Active AZITHROMYCIN 250 MG TABS 2 po qd x 1 day, then 1 po qd x 4 days AZITHROMYCIN 76720585850 No Longer Active Checo Conklin MD Active PREDNISONE 20 MG TAB 2 tabs daily for 3 days, 1 t ab daily for 3 days, 1/2 tab daily for 2 days PREDNISONE 11185481351 No Longer Active Checo Conklin MD Active ZITHROMAX Z-KARTHIK 250 MG TABS 2 today, then 1 daily for 4 days 201 09/18/28 AZITHROMYCIN 22728979296 No Longer Active Paul Hamlin MD Active FOCALIN XR 10 MG [id number] 1 po q a.m. D EXMETHYLPHENIDATE HCL 58801714393 No Longer Active Paul Hamlin MD Activ e PERCOCET 10-325 MG TABS 1 tablet every 6 hours as needed for pain OXYCODONE-ACETAMINOPHEN 24371477553 No Longer Active Paul Hamlin MD Active LORTAB 5 5-500 MG TABS 1/2 to 1 tablet by mouth flaquito ry 4 hours as needed for pain HYDROCODONE-ACETAMINOPHEN 52798719732 No Longer Active Checo Conklin MD Active FOCALIN XR 15 MG [id number] 1 po q a.m. D EXMETHYLPHENIDATE HCL 59854094946 No Longer Active Checo Conklin MD Activ e ZOFRAN ODT 4 MG TBDP 1 po q6hr PRN Nausea ONDAN SETRON 49749175408 No Longer Active Checo Conklin MD Active PERCOCET 5-325 MG TABS 1 tablet by mouth every 6 hours as needed OXYCODONE-ACETAMINOPHEN 22283150705 No Longer Active Checo Conklin MD Active PYRIDIUM 200 MG TABS take 1 tab po TID prn urinary pain. 0 PHENAZOPYRIDINE HCL 39302519706 No Longer Active Checo Conklin MD Active FLUCONAZOLE 150 MG TABS take 1 tab po qday once 04/06 FLUCONAZOLE 26579369891 No Longer Active Dangelo Rangel MD Acti ve CIPRO 500 MG TAB 1 tablet by mouth twice daily CIPROFLOXACIN HCL 63348822014 No Longer Active Dangelo Rangle MD Active PYRIDIUM 200 MG TABS take 1 tab po TID prn urinary pain. 0 PYRIDIUM 200 MG TABS 7728773 PHENAZOPYRIDINE HCL Inactive PERCOCET 5-325 MG TABS 1 tablet by mouth every 6 hours as needed PERCOCET 5-325 MG TABS 4567283 OXYCODONE-ACETAMINOPHEN I nactive ZOFRAN ODT 4 MG TBDP 1 po q6hr PRN Nausea ZOFRAN ODT 4 MG TBDP 859748 ONDANSETRON Inactive FOCALIN XR 15 MG [id number] 1 po q a.m. F OCALIN XR 15 MG [id number]-RNV DEXMETHYLPHENIDATE HCL Inactive LORTAB 5 5-500 MG TABS 1/2 to 1 tablet by mouth flaquito ry 4 hours as needed for pain LORTAB 5 5-500 MG TABS HYDROCODONE-A CETAMINOPHEN Inactive PERCOCET 10-325 MG TABS 1 tablet every 6 hours as needed for pain PERCOCET 10-325 MG TABS 9968886 OXYCODONE-ACETAMINOPHEN Inactive FOCALIN XR 10 MG [id number] 1 po q a.m. F OCALIN XR 10 MG [id number] DEXMETHYLPHENIDATE HCL Inactive CEFDINIR 300 MG CAPS 1 po bid CEFDINIR 300 MG CAPS 20 0346 CEFDINIR Inactive ANTIPYRINE-BENZOCAINE 5.4-1.4 % SOLN 1-2 drops in affected ear ANTIPYRINE-BENZOCAINE 5.4-1.4 % SOLN 215919 BENZOCAINE-ANTIPYRINE I nactive FLONASE 50 MCG/ACT SUSP 1 spray each nostril am and hs FLONASE 50 MCG/ACT SUSP 560346 FLUTICASONE PROPIONATE Inactive PHENERGAN CREAM* 25mg applied to wrist q6hr PRN Nausea PHENERGAN CREAM* Inactive FIORICET 325-50-40 MG TAB 1 tablet by mouth four times daily as needed FIORICET 325-50-40 MG TAB ACETAMINOPHEN-C AFF-BUTALBITAL Inactive TRAZODONE HCL 100 MG TAB 0.5 to 1 po qHS PRN Insomnia TRAZODONE HCL 100 MG TAB 013157 TRAZODONE HCL Inactive CONCERTA 18 MG CR-TABS [...] s prn cough HYDROCODONE-ACETAMINOPHEN 5-325 MG TABS 862206 HYDROCODONE-ACETAMINOPHEN Inactive PHENAZOPYRIDINE HCL 200 MG TABS take 1 tab po TID for bladder pa in PHENAZOPYRIDINE HCL 200 MG TABS 7180008 PHENAZOPYRIDINE HCL Inactive HYDROCODONE-ACETAMINOPHEN 5-325 MG TABS 1 po q 6hr PRN Pain 2013 HYDROCODONE-ACETAMINOPHEN 5-325 MG TABS 393709 HYDROCODONE-ACETAMINOPHEN Inactive CIPRO 500 MG TAB 1 tablet by mouth twice daily CIPRO 500 MG TAB 739004 CIPROFLOXACIN HCL Inactive FLUCONAZOLE 150 MG TABS take 1 tab po qday once 04/06 FLUCONAZOLE 150 MG TABS 011562 FLUCONAZOLE Inactive ZITHROMAX Z-KARTHIK 250 MG TABS 2 today, then 1 daily for 4 days 201 09/18/28 ZITHROMAX Z-KARTHIK 250 MG TABS 4446425 AZITHROMYCIN Inac tive PREDNISONE 20 MG TAB 2 tabs daily for 3 days, 1 t ab daily for 3 days, 1/2 tab daily for 2 days PREDNISONE 20 MG TAB 484558 PREDNISON E Inactive AZITHROMYCIN 250 MG TABS 2 po qd x 1 day, then 1 po qd x 4 days AZITHROMYCIN 250 MG TABS 2836584 AZITHROMYCIN Inactiv e PREDNISONE 20 MG TAB 2 tabs daily for 3 days, 1 t ab daily for 3 days, 1/2 tab daily for 2 days PREDNISONE 20 MG TAB 988672 PREDNISON E Inactive CEFDINIR 300 MG CAPS by mouth twice a day CEFDINIR 300 MG CAPS 257354 CEFDINIR Inactive TRIAMCINOLONE ACETONIDE 0.1 % OINT Apply to affected a reas TID for up to 2 weeks TRIAMCINOLONE ACETONIDE 0.1 % OINT 875907 6 TRIAMCINOLONE ACETONIDE Inactive PREDNISONE 20 MG TAB 2 tabs daily for 3 days, 1 t ab daily for 3 days, 1/2 tab daily for 2 days PREDNISONE 20 MG TAB 825528 PREDNISON E Inactive BACTRIM DS 800-160 MG TABS 1 po BID x 7 days 0 BACTRIM DS 800-160 MG TABS SULFAMETHOXAZOLE-TRIMETHOPRIM Inactive CIPRO 500 MG TAB 1 tablet by mouth twice daily CIPRO 500 MG TAB 514497 CIPROFLOXACIN HCL Inactive AZITHROMYCIN 250 MG TABS 2 po qd x 1 day, then 1 po qd x 4 days AZITHROMYCIN 250 MG TABS 9375177 AZITHROMYCIN Inactiv e Immunizations Vaccine Administration Date [...] Panel - Chemistry sodium, serum 139 mmol/L 899-985 0469/10/24 potassium, serum 4.1 mmol/L 3.5-5.2 chloride, serum [...] 0.80 mg/dL 0.00-1.00 cholesterol, serum 147 mg/dL 637-320 0417/10/24 triglyceride, serum, fasting 112 mg/dL 30-200 HDL [...] 5.0-8.5 Encounters Code Encounter Date Provider Facility CPT-28332 Level 3 Est. Patient 15:22:03 MULE TENDER Thomas reynolds DO [facility] CPT-30370 Level 3 Est. Patient 13:34:17 MULE TENDER Checo Conklin MD [facility] CPT-68197 Level 3 Est. Patient 12:29:32 CDT Dangelo arroyo MD [facility] CPT-65560 Level 3 Est. Patient 16:53:02 CDT Checo Conklin MD [facility] CPT-16339 Level 3 Est. Patient 16:37:13 CDT Checo Conklin MD [facility] CPT-47661 Level 3 Est. Patient 16:16:59 CDT Paul Hamlin MD [facility] CPT-88135 Level 3 Est. Patient 14:20:13 CDT Dangelo arroyo MD [facility] CPT-52050 Level 4 Est. Patient 11:29:33 CDT Checo Conklin MD [facility] CPT-43696 Level 3 Est. Patient 17:08:31 CDT Checo Conklin MD [facility] CPT-41828 Level 3 Est. Patient 16:50:42 MULE TENDER Checo Conklin MD [facility] CPT-88567 Level 4 Est. Patient 09:26:08 MULE TENDER Checo Conklin MD [facility] CPT-14471 Level 3 Est. Patient 11:37:10 CDT Checo Conklin MD [facility] CPT-17800 Level 4 Est. Patient 14:07:38 CDT Checo Conklin MD [facility] CPT-81571 Level 3 Est. Patient 09:54:41 CDT Checo Conklin MD [facility] CPT-04661 Level 3 Est. Patient 11:10:54 CDT Paul Hamlin MD [facility] CPT-69528 Level 3 Est. Patient 14:16:56 MULE TENDER Checo Conklin MD [facility] CPT-72255 Level 3 Est. Patient 11:04:11 MULE TENDER Checo Conklin MD [facility] CPT-04759 Level 3 Est. Patient 17:09:26 CDT Dangelo arroyo MD [facility] CPT-00272 Level 3 Est. Patient 16:54:37 CDT Checo Conklin MD [facility] Procedures Code Procedure Name Date Entry Date Standard Desc ription CPT-OV Office Visit 11:31:28 CDT CPT-15372 Tubersol 09:39:29 CDT CPT-J2550 Phenergan 25 mg (Promethazine) 13:59:02 MULE TENDER CPT-J1885 Toradol 60 mg (Ketorolac) 13:59:02 MULE TENDER 2012
--- OUTSIDE RECORDS SUMMARY | 2019-09-29 02:33 | XMS REPORT | Clinical Summary ---
Author Author Admin, Bethany Gonzales Organization [facility] Address Unknown Phone Unavailable Allergies, Adverse Reactions, [...] q 4 hour s prn cough HYDROCODONE-ACETAMINOPHEN 07716649257 Active Paul montgomery MD Active CEFDINIR 300 MG CAPS by mouth twice a day CEFDI JAZZY 08727714322 No Longer Active Dangelo Rangel MD Active CELEXA 20 MG TABS 1 tablet by mouth daily CITAL OPRAM HYDROBROMIDE 84110810161 Active Checo Conklin MD Active BUPROPION HCL (SMOKING DETER) 150 MG [id number] 1 a day for 1 week then 1 twice a day BUPROPION HCL (SMOKING DETER) 29624026236 No Lo nger Active Checo Conklin MD Active SIMVASTATIN 20 MG TABS 1 po qd SIMVASTATIN 9336196231 4 Active Checo Conklin MD Active CHANTIX STARTING MONTH KARTHIK 0.5 MG X 11 & 1 MG X 42 TAB S 0.5mg daily for 3 days, then 0.5mg BID for 4 days, then 1mg BID VARENICLINE TARTRATE 15834312665 No Longer Active Checo Conklin MD Activ e XANAX 0.5 MG TABS 1 po BID PRN anxiety ALPRAZOLAM 20485259022 Active Checo Conklin MD Active CONCERTA 18 MG CR-TABS 1 po q a.m. METHYLPHENID ATE HCL 80784179659 No Longer Active Checo Conklin MD Active REGLAN 10 MG TAB 1 po TID PRN Nausea METOCLOPRA MIDE HCL 45440065640 Active Checo Conklin MD Active AMBIEN 5 MG TAB 1 po qHS PRN Insomnia ZOLPIDEM TARTRATE 03742162598 Active Checo Conklin MD Active TRAZODONE HCL 100 MG TAB 0.5 to 1 po qHS PRN Insomnia TRAZODONE HCL 75618823282 No Longer Active Checo Conklin MD Acti ve FIORICET 325-50-40 MG TAB 1 tablet by mouth four times daily as needed [id number] 02173841171 No Longer Active Checo Conklin MD Active PHENERGAN CREAM* 25mg applied to wrist q6hr PRN Nausea PHENERGAN CREAM* No Longer Active Checo Cnoklin MD A ctive LAMISIL 250 MG TAB 1 po qd TERBINAFINE HCL 3356331593 1 Active Checo Conklin MD Active FLONASE 50 MCG/ACT SUSP 1 spray each nostril am and hs FLUTICASONE PROPIONATE 54274810598 No Longer Active Checo Conklin MD Activ e ANTIPYRINE-BENZOCAINE 5.4-1.4 % SOLN 1-2 drops in affected ear BENZOCAINE-ANTIPYRINE 07352234028 No Longer Active Checo Conklin MD Active CEFDINIR 300 MG CAPS 1 po bid CEFDINIR 47013016 120 No Longer Active Chceo Conklin MD Active PREDNISONE 20 MG TAB 2 tabs daily for 3 days, 1 t ab daily for 3 days, 1/2 tab daily for 2 days PREDNISONE 46461880793 No Longer Active Aracelis Conklin MD Active AZITHROMYCIN 250 MG TABS 2 po qd x 1 day, then 1 po qd x 4 days AZITHROMYCIN 80953460926 No Longer Active Checo Conklin MD Active PREDNISONE 20 MG TAB 2 tabs daily for 3 days, 1 t ab daily for 3 days, 1/2 tab daily for 2 days PREDNISONE 98369729007 No Longer Active Checo Conklin MD Active ZITHROMAX Z-KARTHIK 250 MG TABS 2 today, then 1 daily for 4 days 201 09/18/28 AZITHROMYCIN 87551978380 No Longer Active Paul Hamlin MD Active FOCALIN XR 10 MG [id number] 1 po q a.m. D EXMETHYLPHENIDATE HCL 21230308490 No Longer Active Paul Hamlin MD Activ e PERCOCET 10-325 MG TABS 1 tablet every 6 hours as needed for pain OXYCODONE-ACETAMINOPHEN 48266866117 No Longer Active Paul Hamlin MD Active LORTAB 5 5-500 MG TABS 1/2 to 1 tablet by mouth flaquito ry 4 hours as needed for pain HYDROCODONE-ACETAMINOPHEN 85092310647 No Longer Active Checo Conklin MD Active FOCALIN XR 15 MG [id number] 1 po q a.m. D EXMETHYLPHENIDATE HCL 58952748604 No Longer Active Checo Conklin MD Activ e ZOFRAN ODT 4 MG TBDP 1 po q6hr PRN Nausea ONDAN SETRON 12108532235 No Longer Active Checo Conklin MD Active PERCOCET 5-325 MG TABS 1 tablet by mouth every 6 hours as needed OXYCODONE-ACETAMINOPHEN 44726748881 No Longer Active Checo Conklin MD Active PYRIDIUM 200 MG TABS take 1 tab po TID prn urinary pain. 0 PHENAZOPYRIDINE HCL 84104870394 No Longer Active Checo Conklin MD Active FLUCONAZOLE 150 MG TABS take 1 tab po qday once 04/06 FLUCONAZOLE 51665729530 No Longer Active Dangelo Rangel MD Acti ve CIPRO 500 MG TAB 1 tablet by mouth twice daily CIPROFLOXACIN HCL 35744857727 No Longer Active Dangelo Rangel MD Active PYRIDIUM 200 MG TABS take 1 tab po TID prn urinary pain. 0 PYRIDIUM 200 MG TABS 0742965 PHENAZOPYRIDINE HCL Inactive PERCOCET 5-325 MG TABS 1 tablet by mouth every 6 hours as needed PERCOCET 5-325 MG TABS 2189329 OXYCODONE-ACETAMINOPHEN I nactive ZOFRAN ODT 4 MG TBDP 1 po q6hr PRN Nausea ZOFRAN ODT 4 MG TBDP 218235 ONDANSETRON Inactive FOCALIN XR 15 MG [id number] 1 po q a.m. F OCALIN XR 15 MG [id number] DEXMETHYLPHENIDATE HCL Inactive LORTAB 5 5-500 MG TABS 1/2 to 1 tablet by mouth flaquito ry 4 hours as needed for pain LORTAB 5 5-500 MG TABS HYDROCODONE-A CETAMINOPHEN Inactive PERCOCET 10-325 MG TABS 1 tablet every 6 hours as needed for pain PERCOCET 10-325 MG TABS 3839043 OXYCODONE-ACETAMINOPHEN Inactive FOCALIN XR 10 MG [id number] 1 po q a.m. F OCALIN XR 10 MG [id number] DEXMETHYLPHENIDATE HCL Inactive CEFDINIR 300 MG CAPS 1 po bid CEFDINIR 300 MG CAPS 20 0346 CEFDINIR Inactive ANTIPYRINE-BENZOCAINE 5.4-1.4 % SOLN 1-2 drops in affected ear ANTIPYRINE-BENZOCAINE 5.4-1.4 % SOLN 668137 BENZOCAINE-ANTIPYRINE I nactive FLONASE 50 MCG/ACT SUSP 1 spray each nostril am and hs FLONASE 50 MCG/ACT SUSP 930773 FLUTICASONE PROPIONATE Inactive PHENERGAN CREAM* 25mg applied to wrist q6hr PRN Nausea PHENERGAN CREAM* Inactive FIORICET 325-50-40 MG TAB 1 tablet by mouth four times daily as needed FIORICET 325-50-40 MG TAB ACETAMINOPHEN-C AFF-BUTALBITAL Inactive TRAZODONE HCL 100 MG TAB 0.5 to 1 po qHS PRN Insomnia TRAZODONE HCL 100 MG TAB 912394 TRAZODONE HCL Inactive CONCERTA 18 MG CR-TABS [...] mouth twice daily CIPRO 500 MG TAB 356142 CIPROFLOXACIN HCL Inactive FLUCONAZOLE 150 MG TABS take 1 tab po qday once 04/06 FLUCONAZOLE 150 MG TABS 050688 FLUCONAZOLE Inactive ZITHROMAX Z-KARTHIK 250 MG TABS 2 today, then 1 daily for 4 days 201 09/18/28 ZITHROMAX Z-KARTHIK 250 MG TABS 6308070 AZITHROMYCIN Inac tive PREDNISONE 20 MG TAB 2 tabs daily for 3 days, 1 t ab daily for 3 days, 1/2 tab daily for 2 days PREDNISONE 20 MG TAB 818280 PREDNISON E Inactive AZITHROMYCIN 250 MG TABS 2 po qd x 1 day, then 1 po qd x 4 days AZITHROMYCIN 250 MG TABS 3917631 AZITHROMYCIN Inactiv e PREDNISONE 20 MG TAB 2 tabs daily for 3 days, 1 t ab daily for 3 days, 1/2 tab daily for 2 days PREDNISONE 20 MG TAB 864974 PREDNISON E Inactive CEFDINIR 300 MG CAPS by mouth twice a day CEFDINIR 300 MG CAPS 753998 CEFDINIR Inactive Immunizations Vaccine Administration Date Value [...] 5.3 % 4.3-6.0 sodium, serum 139 mmol/L 462-437 4397/01/09 potassium, serum 4.3 mmol/L 3.5-5.2 chloride, serum [...] 1.10 mg/dL 0.00-1.00 cholesterol, serum 222 mg/dL 185-962 5134/01/09 triglyceride, serum, fasting 92 mg/dL 30-200 HDL [...] 142-424 Encounters Code Encounter Date Provider Facility CPT-63444 Level 3 Est. Patient 16:16:59 CDT Paul Hamlin MD [facility] CPT-13944 Level 3 Est. Patient 14:20:13 CDT Dangelo arroyo MD [facility] CPT-97202 Level 4 Est. Patient 11:29:33 CDT Checo Conklin MD [facility] CPT-28334 Level 3 Est. Patient 17:08:31 CDT Checo Conklin MD [facility] CPT-92457 Level 3 Est. Patient 16:50:42 PERSONNEL MANAGER Checo Conklin MD [facility] CPT-21969 Level 4 Est. Patient 09:26:08 PERSONNEL MANAGER Checo Conklin MD [facility] CPT-88113 Level 3 Est. Patient 11:37:10 CDT Checo Conklin MD [facility] CPT-99753 Level 4 Est. Patient 14:07:38 CDT Checo Conklin MD [facility] CPT-56118 Level 3 Est. Patient 09:54:41 CDT Checo Conklin MD [facility] CPT-42034 Level 3 Est. Patient 11:10:54 CDT Paul Hamlin MD [facility] CPT-12691 Level 3 Est. Patient 14:16:56 PERSONNEL MANAGER Checo Conklin MD [facility] CPT-18938 Level 3 Est. Patient 11:04:11 PERSONNEL MANAGER Checo Conklin MD [facility] CPT-46867 Level 3 Est. Patient 17:09:26 CDT Dangelo arroyo MD [facility] CPT-40078 Level 3 Est. Patient 16:54:37 CDT Checo Conklin MD [facility] Procedures Code Procedure Name Date Entry Date Standard Desc ription CPT-OV Office Visit 11:31:28 CDT CPT-20574 Tubersol 09:39:29 CDT CPT-J2550 Phenergan 25 mg (Promethazine) 13:59:02 PERSONNEL MANAGER CPT-J1885 Toradol 60 mg (Ketorolac) 13:59:02 PERSONNEL MANAGER 2012
--- OUTSIDE RECORDS SUMMARY | 2019-09-29 02:33 | XMS REPORT | Clinical Summary ---
Author Author Admin, Bethany Gonzales Organization [facility] Address Unknown Phone Allergies, Adverse Reactions, Alerts [...] TABS 1 po BID PRN anxiety ALPRAZOLAM 21768794722 Active Checo Conklin MD Active CHANTIX STARTING MONTH KARTHIK 0.5 MG X 11 & 1 MG X 42 TAB S 0.5mg daily for 3 days, then 0.5mg BID for 4 days, then 1mg BID VARENICL INE TARTRATE 97444179738 Active Checo Conklin MD Active CONCERTA 18 MG CR-TABS 1 po q a.m. METHYLPHENID ATE HCL 51755599049 No Longer Active Checo Conklin MD Active REGLAN 10 MG TAB 1 po TID PRN Nausea METOCLOPRA MIDE HCL 04951901727 Active Checo Conklin MD Active AMBIEN 5 MG TAB 1 po qHS PRN Insomnia ZOLPIDEM TARTRATE 04589415531 Active Checo Conklin MD Active TRAZODONE HCL 100 MG TAB 0.5 to 1 po qHS PRN Insomnia TRAZODONE HCL 85098686302 No Longer Active Chceo Conklin MD Acti ve FIORICET 325-50-40 MG TAB 1 tablet by mouth four times daily as needed [id number] 26527516064 No Longer Active Checo Conklin MD Active PHENERGAN CREAM* 25mg applied to wrist q6hr PRN Nausea PHENERGAN CREAM* No Longer Active Checo Conklin MD A ctive SIMVASTATIN 20 MG TABS 1 tab daily at bedtime S IMVASTATIN 34506576497 Active Checo Conklin MD Active LAMISIL 250 MG TAB 1 po qd TERBINAFINE HCL 9428017339 1 Active Checo Conklin MD Active FLONASE 50 MCG/ACT SUSP 1 spray each nostril am and hs FLUTICASONE PROPIONATE 56301626955 No Longer Active Checo Conklin MD Activ e ANTIPYRINE-BENZOCAINE 5.4-1.4 % SOLN 1-2 drops in affected ear BENZOCAINE-ANTIPYRINE 71596154538 No Longer Active Checo Conklin MD Active CEFDINIR 300 MG CAPS 1 po bid CEFDINIR 52795395 120 No Longer Active Checo Conklin MD Active PREDNISONE 20 MG TAB 2 tabs daily for 3 days, 1 t ab daily for 3 days, 1/2 tab daily for 2 days PREDNISONE 75960595711 No Longer Active Aracelis Conklin MD Active AZITHROMYCIN 250 MG TABS 2 po qd x 1 day, then 1 po qd x 4 days AZITHROMYCIN 05666023648 No Longer Active Checo Conklin MD Active PREDNISONE 20 MG TAB 2 tabs daily for 3 days, 1 t ab daily for 3 days, 1/2 tab daily for 2 days PREDNISONE 26702026361 No Longer Active Checo Conklin MD Active ZITHROMAX Z-KARTHIK 250 MG TABS 2 today, then 1 daily for 4 days 201 09/18/28 AZITHROMYCIN 24802901654 No Longer Active Paul Hamlin MD Active FOCALIN XR 10 MG [id number] 1 po q a.m. D EXMETHYLPHENIDATE HCL 35000456723 No Longer Active Paul Hamlin MD Activ e PERCOCET 10-325 MG TABS 1 tablet every 6 hours as needed for pain OXYCODONE-ACETAMINOPHEN 70634672953 No Longer Active Paul Hamlin MD Active LORTAB 5 5-500 MG TABS 1/2 to 1 tablet by mouth flqauito ry 4 hours as needed for pain HYDROCODONE-ACETAMINOPHEN 63695027204 No Longer Active Checo Conklin MD Active FOCALIN XR 15 MG [id number] 1 po q a.m. D EXMETHYLPHENIDATE HCL 73368770373 No Longer Active Checo Conklin MD Activ e ZOFRAN ODT 4 MG TBDP 1 po q6hr PRN Nausea ONDAN SETRON 86474939288 No Longer Active Checo Conklin MD Active PERCOCET 5-325 MG TABS 1 tablet by mouth every 6 hours as needed OXYCODONE-ACETAMINOPHEN 09562757447 No Longer Active Checo Conklin MD Active PYRIDIUM 200 MG TABS take 1 tab po TID prn urinary pain. 0 PHENAZOPYRIDINE HCL 46147264706 No Longer Active Checo Conklin MD Active FLUCONAZOLE 150 MG TABS take 1 tab po qday once 04/06 FLUCONAZOLE 05452334894 No Longer Active Dangelo Rangel MD Acti ve CIPRO 500 MG TAB 1 tablet by mouth twice daily CIPROFLOXACIN HCL 12259133087 No Longer Active Dangelo Rangel MD Active PYRIDIUM 200 MG TABS take 1 tab po TID prn urinary pain. 0 PYRIDIUM 200 MG TABS 2675550 PHENAZOPYRIDINE HCL Inactive PERCOCET 5-325 MG TABS 1 tablet by mouth every 6 hours as needed PERCOCET 5-325 MG TABS 3835627 OXYCODONE-ACETAMINOPHEN I nactive ZOFRAN ODT 4 MG TBDP 1 po q6hr PRN Nausea ZOFRAN ODT 4 MG TBDP 812327 ONDANSETRON Inactive FOCALIN XR 15 MG [id number] 1 po q a.m. F OCALIN XR 15 MG [id number] DEXMETHYLPHENIDATE HCL Inactive LORTAB 5 5-500 MG TABS 1/2 to 1 tablet by mouth flaquito ry 4 hours as needed for pain LORTAB 5 5-500 MG TABS HYDROCODONE-A CETAMINOPHEN Inactive PERCOCET 10-325 MG TABS 1 tablet every 6 hours as needed for pain PERCOCET 10-325 MG TABS 2185711 OXYCODONE-ACETAMINOPHEN Inactive FOCALIN XR 10 MG [id number] 1 po q a.m. F OCALIN XR 10 MG [id number] DEXMETHYLPHENIDATE HCL Inactive CEFDINIR 300 MG CAPS 1 po bid CEFDINIR 300 MG CAPS 20 0346 CEFDINIR Inactive ANTIPYRINE-BENZOCAINE 5.4-1.4 % SOLN 1-2 drops in affected ear ANTIPYRINE-BENZOCAINE 5.4-1.4 % SOLN 773418 BENZOCAINE-ANTIPYRINE I nactive FLONASE 50 MCG/ACT SUSP 1 spray each nostril am and hs FLONASE 50 MCG/ACT SUSP 360742 FLUTICASONE PROPIONATE Inactive PHENERGAN CREAM* 25mg applied to wrist q6hr PRN Nausea PHENERGAN CREAM* Inactive FIORICET 325-50-40 MG TAB 1 tablet by mouth four times daily as needed FIORICET 325-50-40 MG TAB ACETAMINOPHEN-C AFF-BUTALBITAL Inactive TRAZODONE HCL 100 MG TAB 0.5 to 1 po qHS PRN Insomnia TRAZODONE HCL 100 MG TAB 963619 TRAZODONE HCL Inactive CONCERTA 18 MG CR-TABS 1 po q a.m. CONCERTA 18 MG CR-TABS METHYLPHENIDATE HCL Inactive CIPRO 500 MG TAB 1 tablet by mouth twice daily CIPRO 500 MG TAB 765532 CIPROFLOXACIN HCL Inactive FLUCONAZOLE 150 MG TABS take 1 tab po qday once 04/06 FLUCONAZOLE 150 MG TABS 173214 FLUCONAZOLE Inactive ZITHROMAX Z-KARTHIK 250 MG TABS 2 today, then 1 daily for 4 days 201 09/18/28 ZITHROMAX Z-KARTHIK 250 MG TABS 2404430 AZITHROMYCIN Inac tive PREDNISONE 20 MG TAB 2 tabs daily for 3 days, 1 t ab daily for 3 days, 1/2 tab daily for 2 days PREDNISONE 20 MG TAB 976201 PREDNISON E Inactive AZITHROMYCIN 250 MG TABS 2 po qd x 1 day, then 1 po qd x 4 days AZITHROMYCIN 250 MG TABS 0611062 AZITHROMYCIN Inactiv e PREDNISONE 20 MG TAB 2 tabs daily for 3 days, 1 t ab daily for 3 days, 1/2 tab daily for 2 days PREDNISONE 20 MG TAB 702746 PREDNISON E Inactive Vital Signs Date Name [...] Panel - Chemistry sodium, serum 139 mmol/L 925-679 4461/01/09 potassium, serum 4.3 mmol/L 3.5-5.2 chloride, serum [...] 1.10 mg/dL 0.00-1.00 cholesterol, serum 222 mg/dL 626-268 6424/01/09 triglyceride, serum, fasting 92 mg/dL 30-200 HDL cholesterol, serum 41 mg/dL 32-96 LDL cholesterol, serum 163 mg/dL 0-130 hemoglobin A1C, blood, as % of total hemoglobin 5.3 % 4.3-6.0 Lab Report: HGBA1C, CBC W/DIFF, Comp. Me tabolic Panel, Lipid Panel - Hematology mean corpuscular hemoglobin, RBC 33.2 pg 27. 0-31.2 mean corpuscular volume, RBC 100 fL 80-97 hematocrit, blood 43.3 % 36.0-46.0 hemoglobin, blood 14.5 g/dL 12.0-16.0 erythrocyte (RBC) count 4.35 10^6/MM^3 10*6/mm3 4.04-5.4 8 mean corpuscular hemoglobin concentration, RBC 33.4 G/DL % 31.8-35.4 red blood cell distribution width 13.1 % 11 .6-14.8 platelet count 179 10^3/MM^3 10*3/mm3 512-023 0443/01/09 lymphocytes as percent of blood leukocytes 37.5 % 20.5-51.1 monocytes as percent of blood leukocytes 8.7 % 1.7-9.3 neutrophils as percent of blood leukocytes 51.6 % 42.2-75.2 leukocyte count, blood 5.5 10^3/MM^3 10*3/mm3 4.6-10.2 Encounters Code Encounter Date Provider Facility CPT-56710 Level 3 Est. Patient 17:08:31 CDT Checo Conklin MD [facility] CPT-84806 Level 3 Est. Patient 16:50:42 CHILDREN'S CHOIR DIRECTOR Checo Conklin MD [facility] CPT-16528 Level 4 Est. Patient 09:26:08 CHILDREN'S CHOIR DIRECTOR Checo Conklin MD [facility] CPT-40989 Level 3 Est. Patient 11:37:10 CDT Checo Conklin MD [facility] CPT-64179 Level 4 Est. Patient 14:07:38 CDT Checo Conklin MD [facility] CPT-06455 Level 3 Est. Patient 09:54:41 CDT Checo Conklin MD [facility] CPT-92544 Level 3 Est. Patient 11:10:54 CDT Paul Hamlin MD [facility] CPT-21249 Level 3 Est. Patient 14:16:56 CHILDREN'S CHOIR DIRECTOR Checo Conklin MD [facility] CPT-08241 Level 3 Est. Patient 11:04:11 CHILDREN'S CHOIR DIRECTOR Checo Conklin MD [facility] CPT-58722 Level 3 Est. Patient 17:09:26 CDT Dangelo arroyo MD [facility] CPT-48922 Level 3 Est. Patient 16:54:37 CDT Checo Conklin MD [facility] Procedures Code Procedure Name Date Entry Date Standard Desc ription CPT-J2550 Phenergan 25 mg (Promethazine) 13:59:02 CHILDREN'S CHOIR DIRECTOR CPT-J1885 Toradol 60 mg (Ketorolac) 13:59:02 CHILDREN'S CHOIR DIRECTOR 2012
--- OUTSIDE RECORDS SUMMARY | 2019-09-29 02:33 | XMS REPORT | Clinical Summary ---
Author Author Admin, Bethany Ayala [facility] Address Unknown Phone Unavailable Allergies, [...] 1 po q 6hr PRN Pain HYDROCODONE-ACETAMINOPHEN 02163688902 Active Dangelo Rangel MD Active PHENAZOPYRIDINE HCL 200 MG TABS take 1 tab po TID for bladder pain PHENAZOPYRIDINE HCL 61401614684 Active Dangelo Rangel MD A ctive CIPRO 500 MG TAB 1 tablet by mouth twice daily CIPROFLOXACIN HCL 99463108512 No Longer Active Dangelo Rangel MD Active HYDROCODONE-ACETAMINOPHEN 5-325 MG TABS 1/2 to 1 po q 4 hour s prn cough HYDROCODONE-ACETAMINOPHEN 81608262789 No Longer Activ e Dangelo Rangel MD Active BACTRIM DS 800-160 MG TABS 1 po BID x 7 days 0 SULFAMETHOXAZOLE-TRIMETHOPRIM 57562494022 No Longer Active Checo Conklin MD Active PREDNISONE 20 MG TAB 2 tabs daily for 3 days, 1 t ab daily for 3 days, 1/2 tab daily for 2 days PREDNISONE 20142428131 No Longer Active Checo Conklin MD Active TRIAMCINOLONE ACETONIDE 0.1 % OINT Apply to affected a reas TID for up to 2 weeks TRIAMCINOLONE ACETONIDE 72129860859 No Longer A ctive Checo Conklin MD Active CEFDINIR 300 MG CAPS by mouth twice a day CEFDI JAZZY 35986633181 No Longer Active Dangelo Rangel MD Active CELEXA 20 MG TABS 1 tablet by mouth daily CITAL OPRAM HYDROBROMIDE 02260564763 Active Checo Conklin MD Active BUPROPION HCL (SMOKING DETER) 150 MG [id number] 1 a day for 1 week then 1 twice a day BUPROPION HCL (SMOKING DETER) 65162918431 No Lo nger Active Checo Conklin MD Active SIMVASTATIN 20 MG TABS 1 po qd SIMVASTATIN 0371805861 4 Active Checo Conklin MD Active CHANTIX STARTING MONTH KARTHIK 0.5 MG X 11 & 1 MG X 42 TAB S 0.5mg daily for 3 days, then 0.5mg BID for 4 days, then 1mg BID VARENICLINE TARTRATE 26173299538 No Longer Active Checo Conklin MD Activ e XANAX 0.5 MG TABS 1 po BID PRN anxiety ALPRAZOLAM 58495559019 Active Checo Conklin MD Active CONCERTA 18 MG CR-TABS 1 po q a.m. METHYLPHENID ATE HCL 98466753809 No Longer Active Checo Conklin MD Active REGLAN 10 MG TAB 1 po TID PRN Nausea METOCLOPRA MIDE HCL 34096514371 Active Checo Conklin MD Active AMBIEN 5 MG TAB 1 po qHS PRN Insomnia ZOLPIDEM TARTRATE 01676756246 Active Checo Conklin MD Active TRAZODONE HCL 100 MG TAB 0.5 to 1 po qHS PRN Insomnia TRAZODONE HCL 75732241069 No Longer Active Checo Conklin MD Acti ve FIORICET 325-50-40 MG TAB 1 tablet by mouth four times daily as needed [id number] 29734536904 No Longer Active Checo Conklin MD Active PHENERGAN CREAM* 25mg applied to wrist q6hr PRN Nausea PHENERGAN CREAM* No Longer Active Checo Conklin MD A ctive LAMISIL 250 MG TAB 1 po qd TERBINAFINE HCL 1607618706 1 Active Checo Conklin MD Active FLONASE 50 MCG/ACT SUSP 1 spray each nostril am and hs FLUTICASONE PROPIONATE 01767550077 No Longer Active Checo Conklin MD Activ e ANTIPYRINE-BENZOCAINE 5.4-1.4 % SOLN 1-2 drops in affected ear BENZOCAINE-ANTIPYRINE 94474715314 No Longer Active Checo Conklin MD Active CEFDINIR 300 MG CAPS 1 po bid CEFDINIR 63117081 120 No Longer Active Checo Conklin MD Active PREDNISONE 20 MG TAB 2 tabs daily for 3 days, 1 t ab daily for 3 days, 1/2 tab daily for 2 days PREDNISONE 83303884475 No Longer Active Aracelis Conklin MD Active AZITHROMYCIN 250 MG TABS 2 po qd x 1 day, then 1 po qd x 4 days AZITHROMYCIN 25700697033 No Longer Active Checo Conklin MD Active PREDNISONE 20 MG TAB 2 tabs daily for 3 days, 1 t ab daily for 3 days, 1/2 tab daily for 2 days PREDNISONE 73834925639 No Longer Active Checo Conklin MD Active ZITHROMAX Z-KARTHIK 250 MG TABS 2 today, then 1 daily for 4 days 201 09/18/28 AZITHROMYCIN 14882298080 No Longer Active Paul Hamlin MD Active FOCALIN XR 10 MG [id number] 1 po q a.m. D EXMETHYLPHENIDATE HCL 67271399583 No Longer Active Paul Hamlin MD Activ e PERCOCET 10-325 MG TABS 1 tablet every 6 hours as needed for pain OXYCODONE-ACETAMINOPHEN 59814986372 No Longer Active Paul Hamlin MD Active LORTAB 5 5-500 MG TABS 1/2 to 1 tablet by mouth flaquito ry 4 hours as needed for pain HYDROCODONE-ACETAMINOPHEN 09162281085 No Longer Active Checo Conklin MD Active FOCALIN XR 15 MG [id number] 1 po q a.m. D EXMETHYLPHENIDATE HCL 18275997418 No Longer Active Checo Conklin MD Activ e ZOFRAN ODT 4 MG TBDP 1 po q6hr PRN Nausea ONDAN SETRON 78008473893 No Longer Active Checo Conklin MD Active PERCOCET 5-325 MG TABS 1 tablet by mouth every 6 hours as needed OXYCODONE-ACETAMINOPHEN 85160149977 No Longer Active Checo Conklin MD Active PYRIDIUM 200 MG TABS take 1 tab po TID prn urinary pain. 0 PHENAZOPYRIDINE HCL 72135188889 No Longer Active Checo Conklin MD Active FLUCONAZOLE 150 MG TABS take 1 tab po qday once 04/06 FLUCONAZOLE 34558710184 No Longer Active Dangelo Rangel MD Acti ve CIPRO 500 MG TAB 1 tablet by mouth twice daily CIPROFLOXACIN HCL 35705940288 No Longer Active Dangelo Rangel MD Active PYRIDIUM 200 MG TABS take 1 tab po TID prn urinary pain. 0 PYRIDIUM 200 MG TABS 8253999 PHENAZOPYRIDINE HCL Inactive PERCOCET 5-325 MG TABS 1 tablet by mouth every 6 hours as needed PERCOCET 5-325 MG TABS 1042171 OXYCODONE-ACETAMINOPHEN I nactive ZOFRAN ODT 4 MG TBDP 1 po q6hr PRN Nausea ZOFRAN ODT 4 MG TBDP 182830 ONDANSETRON Inactive FOCALIN XR 15 MG [id number] 1 po q a.m. F OCALIN XR 15 MG [id number] DEXMETHYLPHENIDATE HCL Inactive LORTAB 5 5-500 MG TABS 1/2 to 1 tablet by mouth flaquito ry 4 hours as needed for pain LORTAB 5 5-500 MG TABS HYDROCODONE-A CETAMINOPHEN Inactive PERCOCET 10-325 MG TABS 1 tablet every 6 hours as needed for pain PERCOCET 10-325 MG TABS 8733674 OXYCODONE-ACETAMINOPHEN Inactive FOCALIN XR 10 MG [id number] 1 po q a.m. F OCALIN XR 10 MG [id number] DEXMETHYLPHENIDATE HCL Inactive CEFDINIR 300 MG CAPS 1 po bid CEFDINIR 300 MG CAPS 20 0346 CEFDINIR Inactive ANTIPYRINE-BENZOCAINE 5.4-1.4 % SOLN 1-2 drops in affected ear ANTIPYRINE-BENZOCAINE 5.4-1.4 % SOLN 785768 BENZOCAINE-ANTIPYRINE I nactive FLONASE 50 MCG/ACT SUSP 1 spray each nostril am and hs FLONASE 50 MCG/ACT SUSP 836661 FLUTICASONE PROPIONATE Inactive PHENERGAN CREAM* 25mg applied to wrist q6hr PRN Nausea PHENERGAN CREAM* Inactive FIORICET 325-50-40 MG TAB 1 tablet by mouth four times daily as needed FIORICET 325-50-40 MG TAB ACETAMINOPHEN-C AFF-BUTALBITAL Inactive TRAZODONE HCL 100 MG TAB 0.5 to 1 po qHS PRN Insomnia TRAZODONE HCL 100 MG TAB 122811 TRAZODONE HCL Inactive CONCERTA 18 MG CR-TABS [...] s prn cough HYDROCODONE-ACETAMINOPHEN 5-325 MG TABS 671211 HYDROCODONE-ACETAMINOPHEN Inactive CIPRO 500 MG TAB 1 tablet by mouth twice daily CIPRO 500 MG TAB 705059 CIPROFLOXACIN HCL Inactive FLUCONAZOLE 150 MG TABS take 1 tab po qday once 04/06 FLUCONAZOLE 150 MG TABS 295950 FLUCONAZOLE Inactive ZITHROMAX Z-KARTHIK 250 MG TABS 2 today, then 1 daily for 4 days 201 09/18/28 ZITHROMAX Z-KARTHIK 250 MG TABS 8926973 AZITHROMYCIN Inac tive PREDNISONE 20 MG TAB 2 tabs daily for 3 days, 1 t ab daily for 3 days, 1/2 tab daily for 2 days PREDNISONE 20 MG TAB 116790 PREDNISON E Inactive AZITHROMYCIN 250 MG TABS 2 po qd x 1 day, then 1 po qd x 4 days AZITHROMYCIN 250 MG TABS 8911009 AZITHROMYCIN Inactiv e PREDNISONE 20 MG TAB 2 tabs daily for 3 days, 1 t ab daily for 3 days, 1/2 tab daily for 2 days PREDNISONE 20 MG TAB 594633 PREDNISON E Inactive CEFDINIR 300 MG CAPS by mouth twice a day CEFDINIR 300 MG CAPS 693674 CEFDINIR Inactive TRIAMCINOLONE ACETONIDE 0.1 % OINT Apply to affected a reas TID for up to 2 weeks TRIAMCINOLONE ACETONIDE 0.1 % OINT 217403 6 TRIAMCINOLONE ACETONIDE Inactive PREDNISONE 20 MG TAB 2 tabs daily for 3 days, 1 t ab daily for 3 days, 1/2 tab daily for 2 days PREDNISONE 20 MG TAB 327443 PREDNISON E Inactive BACTRIM DS 800-160 MG TABS 1 po BID x 7 days 0 BACTRIM DS 800-160 MG TABS SULFAMETHOXAZOLE-TRIMETHOPRIM Inactive CIPRO 500 MG TAB 1 tablet by mouth twice daily CIPRO 500 MG TAB 272029 CIPROFLOXACIN HCL Inactive Immunizations Vaccine Administration Date Value Standard Mihcael cription TB PPD (tuberculin purified protein derivative), [...] Panel - Chemistry sodium, serum 139 mmol/L 476-409 2390/10/24 potassium, serum 4.1 mmol/L 3.5-5.2 chloride, serum [...] 0.80 mg/dL 0.00-1.00 cholesterol, serum 147 mg/dL 945-992 3554/10/24 triglyceride, serum, fasting 112 mg/dL 30-200 HDL cholesterol, serum 40 mg/dL 32-96 LDL cholesterol, serum 85 mg/dL 0-130 Lab Report: HGBA1C, CBC W/DIFF, Comp. Me tabolic Panel, Lipid Panel - Chemistry sodium, serum 139 mmol/L 461-381 1988/01/09 potassium, serum 4.3 mmol/L 3.5-5.2 chloride, serum [...] 1.10 mg/dL 0.00-1.00 cholesterol, serum 222 mg/dL 779-397 7034/01/09 triglyceride, serum, fasting 92 mg/dL 30-200 HDL [...] Clear Encounters Code Encounter Date Provider Facility CPT-42319 Level 3 Est. Patient 12:29:32 CDT Dangelo arroyo MD [facility] CPT-47411 Level 3 Est. Patient 16:53:02 CDT Checo Conklin MD [facility] CPT-44339 Level 3 Est. Patient 16:37:13 CDT Checo Conklin MD [facility] CPT-84046 Level 3 Est. Patient 16:16:59 CDT Paul Hamlin MD [facility] CPT-59613 Level 3 Est. Patient 14:20:13 CDT Dangelo arroyo MD [facility] CPT-17013 Level 4 Est. Patient 11:29:33 CDT Checo Conklin MD [facility] CPT-33656 Level 3 Est. Patient 17:08:31 CDT Checo Conklin MD [facility] CPT-21017 Level 3 Est. 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 Patient 09:26:08 LAW FIRM ADMINISTRATOR Checo Conklin MD [facility] CPT-59385 Level 3 Est. Patient 11:37:10 CDT Checo Conklin MD [facility] CPT-38652 Level 4 Est. Patient 14:07:38 CDT Checo Conklin MD [facility] CPT-10822 Level 3 Est. Patient 09:54:41 CDT Checo Conklin MD [facility] CPT-26446 Level 3 Est. Patient 11:10:54 CDT Paul Hamlin MD [facility] CPT-67447 Level 3 Est. Patient 14:16:56 LAW FIRM ADMINISTRATOR Checo Conklin MD [facility] CPT-60093 Level 3 Est. Patient 11:04:11 LAW FIRM ADMINISTRATOR Checo Conklin MD [facility] CPT-36227 Level 3 Est. Patient 17:09:26 CDT Dangelo arroyo MD [facility] CPT-14359 Level 3 Est. Patient 16:54:37 CDT Checo Conklin MD [facility] Procedures Code Procedure Name Date Entry Date Standard Desc ription CPT-OV Office Visit 11:31:28 CDT CPT-49067 Tubersol 09:39:29 CDT CPT-J2550 Phenergan 25 mg (Promethazine) 13:59:02 LAW FIRM ADMINISTRATOR CPT-J1885 Toradol 60 mg (Ketorolac) 13:59:02 LAW FIRM ADMINISTRATOR 2012
--- OUTSIDE RECORDS SUMMARY | 2019-09-29 02:33 | XMS REPORT | Clinical Summary ---
Author Author Admin, Bethany Ayala [facility] Address Unknown Phone Unavailable Allergies, [...] q 4 hour s prn cough HYDROCODONE-ACETAMINOPHEN 99137783780 Active Paul montgomery MD Active CEFDINIR 300 MG CAPS by mouth twice a day CEFDI JAZZY 32392992751 No Longer Active Dangelo Rangel MD Active CELEXA 20 MG TABS 1 tablet by mouth daily CITAL OPRAM HYDROBROMIDE 47986885040 Active Checo Conklin MD Active BUPROPION HCL (SMOKING DETER) 150 MG [id number] 1 a day for 1 week then 1 twice a day BUPROPION HCL (SMOKING DETER) 32359551554 No Lo nger Active Checo Conklin MD Active SIMVASTATIN 20 MG TABS 1 po qd SIMVASTATIN 2385267258 4 Active Checo Conklin MD Active CHANTIX STARTING MONTH KARTHIK 0.5 MG X 11 & 1 MG X 42 TAB S 0.5mg daily for 3 days, then 0.5mg BID for 4 days, then 1mg BID VARENICLINE TARTRATE 02580186959 No Longer Active Checo Conklin MD Activ e XANAX 0.5 MG TABS 1 po BID PRN anxiety ALPRAZOLAM 86210333113 Active Checo Conklin MD Active CONCERTA 18 MG CR-TABS 1 po q a.m. METHYLPHENID ATE HCL 83998073305 No Longer Active Checo Conklin MD Active REGLAN 10 MG TAB 1 po TID PRN Nausea METOCLOPRA MIDE HCL 25132562656 Active Checo Conklin MD Active AMBIEN 5 MG TAB 1 po qHS PRN Insomnia ZOLPIDEM TARTRATE 47647656842 Active Checo Conklin MD Active TRAZODONE HCL 100 MG TAB 0.5 to 1 po qHS PRN Insomnia TRAZODONE HCL 01689748481 No Longer Active Checo Conklin MD Acti ve FIORICET 325-50-40 MG TAB 1 tablet by mouth four times daily as needed [id number] 64901424567 No Longer Active Checo Conklin MD Active PHENERGAN CREAM* 25mg applied to wrist q6hr PRN Nausea PHENERGAN CREAM* No Longer Active Checo Conklin MD A ctive LAMISIL 250 MG TAB 1 po qd TERBINAFINE HCL 8502570112 1 Active Checo Conklin MD Active FLONASE 50 MCG/ACT SUSP 1 spray each nostril am and hs FLUTICASONE PROPIONATE 15771236952 No Longer Active Checo Conklin MD Activ e ANTIPYRINE-BENZOCAINE 5.4-1.4 % SOLN 1-2 drops in affected ear BENZOCAINE-ANTIPYRINE 63384047073 No Longer Active Checo Conklin MD Active CEFDINIR 300 MG CAPS 1 po bid CEFDINIR 04343208 120 No Longer Active Checo Conklin MD Active PREDNISONE 20 MG TAB 2 tabs daily for 3 days, 1 t ab daily for 3 days, 1/2 tab daily for 2 days PREDNISONE 93273357382 No Longer Active Aracelis Conklin MD Active AZITHROMYCIN 250 MG TABS 2 po qd x 1 day, then 1 po qd x 4 days AZITHROMYCIN 87406382070 No Longer Active Checo Conklin MD Active PREDNISONE 20 MG TAB 2 tabs daily for 3 days, 1 t ab daily for 3 days, 1/2 tab daily for 2 days PREDNISONE 11321428559 No Longer Active Checo Conklin MD Active ZITHROMAX Z-KARTHIK 250 MG TABS 2 today, then 1 daily for 4 days 201 09/18/28 AZITHROMYCIN 62619941280 No Longer Active Paul Hamlin MD Active FOCALIN XR 10 MG [id number] 1 po q a.m. D EXMETHYLPHENIDATE HCL 86429992523 No Longer Active Paul Hamlin MD Activ e PERCOCET 10-325 MG TABS 1 tablet every 6 hours as needed for pain OXYCODONE-ACETAMINOPHEN 77889691181 No Longer Active Paul Hamlin MD Active LORTAB 5 5-500 MG TABS 1/2 to 1 tablet by mouth flaquito ry 4 hours as needed for pain HYDROCODONE-ACETAMINOPHEN 70992855376 No Longer Active Checo Conklin MD Active FOCALIN XR 15 MG [id number] 1 po q a.m. D EXMETHYLPHENIDATE HCL 17549895095 No Longer Active Checo Conklin MD Activ e ZOFRAN ODT 4 MG TBDP 1 po q6hr PRN Nausea ONDAN SETRON 35418497734 No Longer Active Checo Conklin MD Active PERCOCET 5-325 MG TABS 1 tablet by mouth every 6 hours as needed OXYCODONE-ACETAMINOPHEN 82003829772 No Longer Active Checo Conklin MD Active PYRIDIUM 200 MG TABS take 1 tab po TID prn urinary pain. 0 PHENAZOPYRIDINE HCL 54268535580 No Longer Active Checo Conklin MD Active FLUCONAZOLE 150 MG TABS take 1 tab po qday once 04/06 FLUCONAZOLE 69193897821 No Longer Active Dangelo Rangel MD Acti ve CIPRO 500 MG TAB 1 tablet by mouth twice daily CIPROFLOXACIN HCL 17053769474 No Longer Active Dangelo Rangel MD Active PYRIDIUM 200 MG TABS take 1 tab po TID prn urinary pain. 0 PYRIDIUM 200 MG TABS 0097192 PHENAZOPYRIDINE HCL Inactive PERCOCET 5-325 MG TABS 1 tablet by mouth every 6 hours as needed PERCOCET 5-325 MG TABS 0659639 OXYCODONE-ACETAMINOPHEN I nactive ZOFRAN ODT 4 MG TBDP 1 po q6hr PRN Nausea ZOFRAN ODT 4 MG TBDP 434601 ONDANSETRON Inactive FOCALIN XR 15 MG [id number] 1 po q a.m. F OCALIN XR 15 MG [id number] DEXMETHYLPHENIDATE HCL Inactive LORTAB 5 5-500 MG TABS 1/2 to 1 tablet by mouth flaquito ry 4 hours as needed for pain LORTAB 5 5-500 MG TABS HYDROCODONE-A CETAMINOPHEN Inactive PERCOCET 10-325 MG TABS 1 tablet every 6 hours as needed for pain PERCOCET 10-325 MG TABS 7772085 OXYCODONE-ACETAMINOPHEN Inactive FOCALIN XR 10 MG [id number] 1 po q a.m. F OCALIN XR 10 MG [id number] DEXMETHYLPHENIDATE HCL Inactive CEFDINIR 300 MG CAPS 1 po bid CEFDINIR 300 MG CAPS 20 0346 CEFDINIR Inactive ANTIPYRINE-BENZOCAINE 5.4-1.4 % SOLN 1-2 drops in affected ear ANTIPYRINE-BENZOCAINE 5.4-1.4 % SOLN 377975 BENZOCAINE-ANTIPYRINE I nactive FLONASE 50 MCG/ACT SUSP 1 spray each nostril am and hs FLONASE 50 MCG/ACT SUSP 726295 FLUTICASONE PROPIONATE Inactive PHENERGAN CREAM* 25mg applied to wrist q6hr PRN Nausea PHENERGAN CREAM* Inactive FIORICET 325-50-40 MG TAB 1 tablet by mouth four times daily as needed FIORICET 325-50-40 MG TAB ACETAMINOPHEN-C AFF-BUTALBITAL Inactive TRAZODONE HCL 100 MG TAB 0.5 to 1 po qHS PRN Insomnia TRAZODONE HCL 100 MG TAB 432529 TRAZODONE HCL Inactive CONCERTA 18 MG CR-TABS [...] mouth twice daily CIPRO 500 MG TAB 303956 CIPROFLOXACIN HCL Inactive FLUCONAZOLE 150 MG TABS take 1 tab po qday once 04/06 FLUCONAZOLE 150 MG TABS 150271 FLUCONAZOLE Inactive ZITHROMAX Z-KARTHIK 250 MG TABS 2 today, then 1 daily for 4 days 201 09/18/28 ZITHROMAX Z-KARTHIK 250 MG TABS 7093417 AZITHROMYCIN Inac tive PREDNISONE 20 MG TAB 2 tabs daily for 3 days, 1 t ab daily for 3 days, 1/2 tab daily for 2 days PREDNISONE 20 MG TAB 424546 PREDNISON E Inactive AZITHROMYCIN 250 MG TABS 2 po qd x 1 day, then 1 po qd x 4 days AZITHROMYCIN 250 MG TABS 5696410 AZITHROMYCIN Inactiv e PREDNISONE 20 MG TAB 2 tabs daily for 3 days, 1 t ab daily for 3 days, 1/2 tab daily for 2 days PREDNISONE 20 MG TAB 820270 PREDNISON E Inactive CEFDINIR 300 MG CAPS by mouth twice a day CEFDINIR 300 MG CAPS 770714 CEFDINIR Inactive Immunizations Vaccine Administration Date Value [...] 5.3 % 4.3-6.0 sodium, serum 139 mmol/L 176-990 7679/01/09 potassium, serum 4.3 mmol/L 3.5-5.2 chloride, serum [...] 1.10 mg/dL 0.00-1.00 cholesterol, serum 222 mg/dL 042-646 9913/01/09 triglyceride, serum, fasting 92 mg/dL 30-200 HDL [...] 142-424 Encounters Code Encounter Date Provider Facility CPT-77639 Level 3 Est. Patient 16:16:59 CDT Paul Hamlin MD [facility] CPT-24031 Level 3 Est. Patient 14:20:13 CDT Dangelo arroyo MD [facility] CPT-94297 Level 4 Est. Patient 11:29:33 CDT Checo Conklin MD [facility] CPT-24569 Level 3 Est. Patient 17:08:31 CDT Checo Conklin MD [facility] CPT-33801 Level 3 Est. Patient 16:50:42 AEMT Checo Conklin MD [facility] CPT-66822 Level 4 Est. Patient 09:26:08 AEMT Checo Conklin MD [facility] CPT-74640 Level 3 Est. Patient 11:37:10 CDT Checo Conklin MD [facility] CPT-71157 Level 4 Est. Patient 14:07:38 CDT Checo Conklin MD [facility] CPT-76873 Level 3 Est. Patient 09:54:41 CDT Checo Conklin MD [facility] CPT-64811 Level 3 Est. Patient 11:10:54 CDT Paul Hamlin MD [facility] CPT-35949 Level 3 Est. Patient 14:16:56 AEMT Checo Conklin MD [facility] CPT-47450 Level 3 Est. Patient 11:04:11 AEMT Checo Conklin MD [facility] CPT-47564 Level 3 Est. Patient 17:09:26 CDT Dangelo arroyo MD [facility] CPT-45696 Level 3 Est. Patient 16:54:37 CDT Checo Conklin MD [facility] Procedures Code Procedure Name Date Entry Date Standard Desc ription CPT-OV Office Visit 11:31:28 CDT CPT-87587 Tubersol 09:39:29 CDT CPT-J2550 Phenergan 25 mg (Promethazine) 13:59:02 AEMT CPT-J1885 Toradol 60 mg (Ketorolac) 13:59:02 AEMT 2012
--- OUTSIDE RECORDS SUMMARY | 2019-09-29 02:33 | XMS REPORT | Clinical Summary ---
Author Author Admin, Bethany Ayala [facility] Address Unknown Phone Unavailable Allergies, Adverse [...] 1 po q 6hr PRN Pain HYDROCODONE-ACETAMINOPHEN 75613139747 Active Dangelo Rangel MD Active PHENAZOPYRIDINE HCL 200 MG TABS take 1 tab po TID for bladder pain PHENAZOPYRIDINE HCL 50538089577 Active Dangelo Rangel MD A ctive CIPRO 500 MG TAB 1 tablet by mouth twice daily CIPROFLOXACIN HCL 31737338966 No Longer Active Dangelo Rangel MD Active HYDROCODONE-ACETAMINOPHEN 5-325 MG TABS 1/2 to 1 po q 4 hour s prn cough HYDROCODONE-ACETAMINOPHEN 55878597733 No Longer Activ e Dangelo Rangel MD Active BACTRIM DS 800-160 MG TABS 1 po BID x 7 days 0 SULFAMETHOXAZOLE-TRIMETHOPRIM 55552095471 No Longer Active Checo Conklin MD Active PREDNISONE 20 MG TAB 2 tabs daily for 3 days, 1 t ab daily for 3 days, 1/2 tab daily for 2 days PREDNISONE 75884987560 No Longer Active Checo Conklin MD Active TRIAMCINOLONE ACETONIDE 0.1 % OINT Apply to affected a reas TID for up to 2 weeks TRIAMCINOLONE ACETONIDE 20537078290 No Longer A ctive Checo Conklin MD Active CEFDINIR 300 MG CAPS by mouth twice a day CEFDI JAZZY 06232529493 No Longer Active Dangelo Rangel MD Active CELEXA 20 MG TABS 1 tablet by mouth daily CITAL OPRAM HYDROBROMIDE 55821419650 Active Checo Conklin MD Active BUPROPION HCL (SMOKING DETER) 150 MG [id number] 1 a day for 1 week then 1 twice a day BUPROPION HCL (SMOKING DETER) 41070810268 No Lo nger Active Checo Conklin MD Active SIMVASTATIN 20 MG TABS 1 po qd SIMVASTATIN 1224708768 5 Active Checo Conklin MD Active CHANTIX STARTING MONTH KARTHIK 0.5 MG X 11 & 1 MG X 42 TAB S 0.5mg daily for 3 days, then 0.5mg BID for 4 days, then 1mg BID VARENICLINE TARTRATE 84954702108 No Longer Active Checo Conklin MD Activ e XANAX 0.5 MG TABS 1 po BID PRN anxiety ALPRAZOLAM 72770233879 Active Efren Medel APRN Active CONCERTA 18 MG CR-TABS 1 po q a.m. METHYLPHENID ATE HCL 54238565492 No Longer Active Checo Conklin MD Active REGLAN 10 MG TAB 1 po TID PRN Nausea METOCLOPRA MIDE HCL 55406471509 Active Checo Conklin MD Active AMBIEN 5 MG TAB 1 po qHS PRN Insomnia ZOLPIDEM TARTRATE 62319324413 Active Efren Medel APRN Active TRAZODONE HCL 100 MG TAB 0.5 to 1 po qHS PRN Insomnia TRAZODONE HCL 29107536598 No Longer Active Checo Conklin MD Acti ve FIORICET 325-50-40 MG TAB 1 tablet by mouth four times daily as needed [id number] 78136400524 No Longer Active Checo Conklin MD Active PHENERGAN CREAM* 25mg applied to wrist q6hr PRN Nausea PHENERGAN CREAM* No Longer Active Checo Conklin MD A ctive LAMISIL 250 MG TAB 1 po qd TERBINAFINE HCL 3971791708 1 Active Checo Conklin MD Active FLONASE 50 MCG/ACT SUSP 1 spray each nostril am and hs FLUTICASONE PROPIONATE 72937485271 No Longer Active Checo Conklin MD Activ e ANTIPYRINE-BENZOCAINE 5.4-1.4 % SOLN 1-2 drops in affected ear BENZOCAINE-ANTIPYRINE 79479388759 No Longer Active Checo Conklin MD Active CEFDINIR 300 MG CAPS 1 po bid CEFDINIR 05858940 120 No Longer Active Checo Conklin MD Active PREDNISONE 20 MG TAB 2 tabs daily for 3 days, 1 t ab daily for 3 days, 1/2 tab daily for 2 days PREDNISONE 59188386798 No Longer Active M greg Conklin MD Active AZITHROMYCIN 250 MG TABS 2 po qd x 1 day, then 1 po qd x 4 days AZITHROMYCIN 11124153867 No Longer Active Checo Conklin MD Active PREDNISONE 20 MG TAB 2 tabs daily for 3 days, 1 t ab daily for 3 days, 1/2 tab daily for 2 days PREDNISONE 44543339170 No Longer Active Checo Conklin MD Active ZITHROMAX Z-KARTHIK 250 MG TABS 2 today, then 1 daily for 4 days 201 09/18/28 AZITHROMYCIN 81464650796 No Longer Active Paul Hamlin MD Active FOCALIN XR 10 MG [id number] 1 po q a.m. D EXMETHYLPHENIDATE HCL 92606392967 No Longer Active Paul Hamlin MD Activ e PERCOCET 10-325 MG TABS 1 tablet every 6 hours as needed for pain OXYCODONE-ACETAMINOPHEN 89394996182 No Longer Active Paul Hamlin MD Active LORTAB 5 5-500 MG TABS 1/2 to 1 tablet by mouth flaquito ry 4 hours as needed for pain HYDROCODONE-ACETAMINOPHEN 97209707449 No Longer Active Checo Conklin MD Active FOCALIN XR 15 MG [id number] 1 po q a.m. D EXMETHYLPHENIDATE HCL 82600335972 No Longer Active Checo Conklin MD Activ e ZOFRAN ODT 4 MG TBDP 1 po q6hr PRN Nausea ONDAN SETRON 11771743772 No Longer Active Checo Conklin MD Active PERCOCET 5-325 MG TABS 1 tablet by mouth every 6 hours as needed OXYCODONE-ACETAMINOPHEN 37653907541 No Longer Active Checo Conklin MD Active PYRIDIUM 200 MG TABS take 1 tab po TID prn urinary pain. 0 PHENAZOPYRIDINE HCL 89781605475 No Longer Active Checo Conklin MD Active FLUCONAZOLE 150 MG TABS take 1 tab po qday once 04/06 FLUCONAZOLE 43818901321 No Longer Active Dangelo Rangel MD Acti ve CIPRO 500 MG TAB 1 tablet by mouth twice daily CIPROFLOXACIN HCL 42115675178 No Longer Active Dangelo Rangel MD Active PYRIDIUM 200 MG TABS take 1 tab po TID prn urinary pain. 0 PYRIDIUM 200 MG TABS 5142602 PHENAZOPYRIDINE HCL Inactive PERCOCET 5-325 MG TABS 1 tablet by mouth every 6 hours as needed PERCOCET 5-325 MG TABS 9550702 OXYCODONE-ACETAMINOPHEN I nactive ZOFRAN ODT 4 MG TBDP 1 po q6hr PRN Nausea ZOFRAN ODT 4 MG TBDP 627722 ONDANSETRON Inactive FOCALIN XR 15 MG [id number] 1 po q a.m. F OCALIN XR 15 MG [id number] DEXMETHYLPHENIDATE HCL Inactive LORTAB 5 5-500 MG TABS 1/2 to 1 tablet by mouth flaquito ry 4 hours as needed for pain LORTAB 5 5-500 MG TABS HYDROCODONE-A CETAMINOPHEN Inactive PERCOCET 10-325 MG TABS 1 tablet every 6 hours as needed for pain PERCOCET 10-325 MG TABS 8421324 OXYCODONE-ACETAMINOPHEN Inactive FOCALIN XR 10 MG [id number] 1 po q a.m. F OCALIN XR 10 MG [id number] DEXMETHYLPHENIDATE HCL Inactive CEFDINIR 300 MG CAPS 1 po bid CEFDINIR 300 MG CAPS 20 0346 CEFDINIR Inactive ANTIPYRINE-BENZOCAINE 5.4-1.4 % SOLN 1-2 drops in affected ear ANTIPYRINE-BENZOCAINE 5.4-1.4 % SOLN 560805 BENZOCAINE-ANTIPYRINE I nactive FLONASE 50 MCG/ACT SUSP 1 spray each nostril am and hs FLONASE 50 MCG/ACT SUSP 707496 FLUTICASONE PROPIONATE Inactive PHENERGAN CREAM* 25mg applied to wrist q6hr PRN Nausea PHENERGAN CREAM* Inactive FIORICET 325-50-40 MG TAB 1 tablet by mouth four times daily as needed FIORICET 325-50-40 MG TAB ACETAMINOPHEN-C AFF-BUTALBITAL Inactive TRAZODONE HCL 100 MG TAB 0.5 to 1 po qHS PRN Insomnia TRAZODONE HCL 100 MG TAB 072049 TRAZODONE HCL Inactive CONCERTA 18 MG CR-TABS 1 po q a.m. CONCERTA 18 MG CR-TABS METHYLPHENIDATE HCL Inactive CHANTIX STARTING MONTH KARTHIK 0.5 MG X 11 & 1 MG X 42 TAB S 0.5mg daily for 3 days, then 0.5mg BID for 4 days, then 1mg BID CHANTIX STARTING MONTH AKRTHIK 0.5 MG X 11 & 1 MG X 42 TABS VARENICLINE TARTRATE Inactive HYDROCODONE-ACETAMINOPHEN 5-325 MG TABS 1/2 to 1 po q 4 hour s prn cough HYDROCODONE-ACETAMINOPHEN 5-325 MG TABS 425613 HYDROCODONE-ACETAMINOPHEN Inactive CIPRO 500 MG TAB 1 tablet by mouth twice daily CIPRO 500 MG TAB 834825 CIPROFLOXACIN HCL Inactive FLUCONAZOLE 150 MG TABS take 1 tab po qday once 04/06 FLUCONAZOLE 150 MG TABS 419853 FLUCONAZOLE Inactive ZITHROMAX Z-KARTHIK 250 MG TABS 2 today, then 1 daily for 4 days 201 09/18/28 ZITHROMAX Z-KARTHIK 250 MG TABS 7760021 AZITHROMYCIN Inac tive PREDNISONE 20 MG TAB 2 tabs daily for 3 days, 1 t ab daily for 3 days, 1/2 tab daily for 2 days PREDNISONE 20 MG TAB 625205 PREDNISON E Inactive AZITHROMYCIN 250 MG TABS 2 po qd x 1 day, then 1 po qd x 4 days AZITHROMYCIN 250 MG TABS 9329940 AZITHROMYCIN Inactiv e PREDNISONE 20 MG TAB 2 tabs daily for 3 days, 1 t ab daily for 3 days, 1/2 tab daily for 2 days PREDNISONE 20 MG TAB 534732 PREDNISON E Inactive CEFDINIR 300 MG CAPS by mouth twice a day CEFDINIR 300 MG CAPS 584615 CEFDINIR Inactive TRIAMCINOLONE ACETONIDE 0.1 % OINT Apply to affected a reas TID for up to 2 weeks TRIAMCINOLONE ACETONIDE 0.1 % OINT 596733 6 TRIAMCINOLONE ACETONIDE Inactive PREDNISONE 20 MG TAB 2 tabs daily for 3 days, 1 t ab daily for 3 days, 1/2 tab daily for 2 days PREDNISONE 20 MG TAB 350786 PREDNISON E Inactive BACTRIM DS 800-160 MG TABS 1 po BID x 7 days 0 BACTRIM DS 800-160 MG TABS SULFAMETHOXAZOLE-TRIMETHOPRIM Inactive CIPRO 500 MG TAB 1 tablet by mouth twice daily CIPRO 500 MG TAB 782995 CIPROFLOXACIN HCL Inactive Immunizations Vaccine Administration Date [...] 0.80 mg/dL 0.00-1.00 cholesterol, serum 147 mg/dL 795-829 9663/10/24 triglyceride, serum, fasting 112 mg/dL 30-200 HDL cholesterol, serum 40 mg/dL 32-96 LDL cholesterol, serum 85 mg/dL 0-130 sodium, serum 139 mmol/L 583-017 4700/10/24 potassium, serum 4.1 mmol/L 3.5-5.2 chloride, serum 102 mmol/L 98-107 carbon dioxide, venous blood 30.9 mmol/L 21.0-32 .0 blood glucose 78 mg/dL 65-110 urea nitrogen, blood 11 mg/dL 7-18 Lab Report: HGBA1C, CBC W/DIFF, Comp. Me tabolic Panel, Lipid Panel - Chemistry sodium, serum 139 mmol/L 438-629 5055/01/09 potassium, serum 4.3 mmol/L 3.5-5.2 chloride, serum [...] 1.10 mg/dL 0.00-1.00 cholesterol, serum 222 mg/dL 910-822 3494/01/09 triglyceride, serum, fasting 92 mg/dL 30-200 HDL [...] Clear Encounters Code Encounter Date Provider Facility CPT-62339 Level 3 Est. Patient 12:29:32 CDT Dangelo arroyo MD [facility] CPT-85632 Level 3 Est. Patient 16:53:02 CDT Checo Conklin MD [facility] CPT-91775 Level 3 Est. Patient 16:37:13 CDT Checo Conklin MD [facility] CPT-59832 Level 3 Est. Patient 16:16:59 CDT Paul Hamlin MD [facility] CPT-32661 Level 3 Est. Patient 14:20:13 CDT Dangelo arroyo MD [facility] CPT-06187 Level 4 Est. Patient 11:29:33 CDT Checo Conklin MD [facility] CPT-85111 Level 3 Est. Patient 17:08:31 CDT Checo Conklin MD [facility] CPT-83491 Level 3 Est. 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 Patient 11:37:10 CDT Checo Conklin MD [facility] CPT-19253 Level 4 Est. Patient 14:07:38 CDT Checo Conklin MD [facility] CPT-89302 Level 3 Est. Patient 09:54:41 CDT Checo Conklin MD [facility] CPT-01772 Level 3 Est. Patient 11:10:54 CDT Paul Hamlin MD [facility] CPT-38306 Level 3 Est. 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 Patient 17:09:26 CDT Dangelo arroyo MD [facility] CPT-48024 Level 3 Est. 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
--- OUTSIDE RECORDS SUMMARY | 2019-09-29 02:34 | XMS REPORT | Clinical Summary ---
Author Author Admin, Bethany Gonzales Organization [facility] Address Unknown Phone Allergies, Adverse [...] TABS 1 po BID PRN anxiety ALPRAZOLAM 96031600302 Active Checo Conklin MD Active CHANTIX STARTING MONTH KARTHIK 0.5 MG X 11 & 1 MG X 42 TAB S 0.5mg daily for 3 days, then 0.5mg BID for 4 days, then 1mg BID VARENICL INE TARTRATE 61942477575 Active Checo Conklin MD Active CONCERTA 18 MG CR-TABS 1 po q a.m. METHYLPHENID ATE HCL 22989165463 No Longer Active Checo Conklin MD Active REGLAN 10 MG TAB 1 po TID PRN Nausea METOCLOPRA MIDE HCL 80805287372 Active Checo Conklin MD Active AMBIEN 5 MG TAB 1 po qHS PRN Insomnia ZOLPIDEM TARTRATE 65334863998 Active Checo Conklin MD Active TRAZODONE HCL 100 MG TAB 0.5 to 1 po qHS PRN Insomnia TRAZODONE HCL 61547956210 No Longer Active Checo Conklin MD Acti ve FIORICET 325-50-40 MG TAB 1 tablet by mouth four times daily as needed [id number] 50711582729 No Longer Active Checo Conklin MD Active PHENERGAN CREAM* 25mg applied to wrist q6hr PRN Nausea PHENERGAN CREAM* No Longer Active Checo Conklin MD A ctive SIMVASTATIN 20 MG TABS 1 tab daily at bedtime S IMVASTATIN 87261296922 Active Checo Conklin MD Active LAMISIL 250 MG TAB 1 po qd TERBINAFINE HCL 5935342165 1 Active Checo Conklin MD Active FLONASE 50 MCG/ACT SUSP 1 spray each nostril am and hs FLUTICASONE PROPIONATE 39734635139 No Longer Active Checo Conklin MD Activ e ANTIPYRINE-BENZOCAINE 5.4-1.4 % SOLN 1-2 drops in affected ear BENZOCAINE-ANTIPYRINE 11299483832 No Longer Active Checo Conklin MD Active CEFDINIR 300 MG CAPS 1 po bid CEFDINIR 12867684 120 No Longer Active Checo Conklin MD Active PREDNISONE 20 MG TAB 2 tabs daily for 3 days, 1 t ab daily for 3 days, 1/2 tab daily for 2 days PREDNISONE 37168794112 No Longer Active Aracelis Conklin MD Active AZITHROMYCIN 250 MG TABS 2 po qd x 1 day, then 1 po qd x 4 days AZITHROMYCIN 21434565362 No Longer Active Checo Conklin MD Active PREDNISONE 20 MG TAB 2 tabs daily for 3 days, 1 t ab daily for 3 days, 1/2 tab daily for 2 days PREDNISONE 36558910975 No Longer Active Checo Conklin MD Active ZITHROMAX Z-KARTHIK 250 MG TABS 2 today, then 1 daily for 4 days 201 09/18/28 AZITHROMYCIN 05762193161 No Longer Active Paul Hamlni MD Active FOCALIN XR 10 MG [id number] 1 po q a.m. D EXMETHYLPHENIDATE HCL 54360704476 No Longer Active Paul Hamlin MD Activ e PERCOCET 10-325 MG TABS 1 tablet every 6 hours as needed for pain OXYCODONE-ACETAMINOPHEN 70033352805 No Longer Active Paul Hamlin MD Active LORTAB 5 5-500 MG TABS 1/2 to 1 tablet by mouth flaquito ry 4 hours as needed for pain HYDROCODONE-ACETAMINOPHEN 11267642668 No Longer Active Checo Conklin MD Active FOCALIN XR 15 MG [id number] 1 po q a.m. D EXMETHYLPHENIDATE HCL 92248917126 No Longer Active Checo Conklin MD Activ e ZOFRAN ODT 4 MG TBDP 1 po q6hr PRN Nausea ONDAN SETRON 74794768697 No Longer Active Checo Conklin MD Active PERCOCET 5-325 MG TABS 1 tablet by mouth every 6 hours as needed OXYCODONE-ACETAMINOPHEN 59217536510 No Longer Active Checo Conklin MD Active PYRIDIUM 200 MG TABS take 1 tab po TID prn urinary pain. 0 PHENAZOPYRIDINE HCL 91360848355 No Longer Active Checo Conklin MD Active FLUCONAZOLE 150 MG TABS take 1 tab po qday once 04/06 FLUCONAZOLE 78958179604 No Longer Active Dangelo Rangel MD Acti ve CIPRO 500 MG TAB 1 tablet by mouth twice daily CIPROFLOXACIN HCL 65663564283 No Longer Active Dangelo Rangel MD Active PYRIDIUM 200 MG TABS take 1 tab po TID prn urinary pain. 0 PYRIDIUM 200 MG TABS 4465571 PHENAZOPYRIDINE HCL Inactive PERCOCET 5-325 MG TABS 1 tablet by mouth every 6 hours as needed PERCOCET 5-325 MG TABS 4306591 OXYCODONE-ACETAMINOPHEN I nactive ZOFRAN ODT 4 MG TBDP 1 po q6hr PRN Nausea ZOFRAN ODT 4 MG TBDP 691509 ONDANSETRON Inactive FOCALIN XR 15 MG [id number] 1 po q a.m. F OCALIN XR 15 MG [id number] DEXMETHYLPHENIDATE HCL Inactive LORTAB 5 5-500 MG TABS 1/2 to 1 tablet by mouth flaquito ry 4 hours as needed for pain LORTAB 5 5-500 MG TABS HYDROCODONE-A CETAMINOPHEN Inactive PERCOCET 10-325 MG TABS 1 tablet every 6 hours as needed for pain PERCOCET 10-325 MG TABS 5530153 OXYCODONE-ACETAMINOPHEN Inactive FOCALIN XR 10 MG [id number] 1 po q a.m. F OCALIN XR 10 MG [id number] DEXMETHYLPHENIDATE HCL Inactive CEFDINIR 300 MG CAPS 1 po bid CEFDINIR 300 MG CAPS 20 0346 CEFDINIR Inactive ANTIPYRINE-BENZOCAINE 5.4-1.4 % SOLN 1-2 drops in affected ear ANTIPYRINE-BENZOCAINE 5.4-1.4 % SOLN 424487 BENZOCAINE-ANTIPYRINE I nactive FLONASE 50 MCG/ACT SUSP 1 spray each nostril am and hs FLONASE 50 MCG/ACT SUSP 331369 FLUTICASONE PROPIONATE Inactive PHENERGAN CREAM* 25mg applied to wrist q6hr PRN Nausea PHENERGAN CREAM* Inactive FIORICET 325-50-40 MG TAB 1 tablet by mouth four times daily as needed FIORICET 325-50-40 MG TAB ACETAMINOPHEN-C AFF-BUTALBITAL Inactive TRAZODONE HCL 100 MG TAB 0.5 to 1 po qHS PRN Insomnia TRAZODONE HCL 100 MG TAB 312407 TRAZODONE HCL Inactive CONCERTA 18 MG CR-TABS 1 po q a.m. CONCERTA 18 MG CR-TABS METHYLPHENIDATE HCL Inactive CIPRO 500 MG TAB 1 tablet by mouth twice daily CIPRO 500 MG TAB 644529 CIPROFLOXACIN HCL Inactive FLUCONAZOLE 150 MG TABS take 1 tab po qday once 04/06 FLUCONAZOLE 150 MG TABS 042037 FLUCONAZOLE Inactive ZITHROMAX Z-KARTHIK 250 MG TABS 2 today, then 1 daily for 4 days 201 09/18/28 ZITHROMAX Z-KARTHIK 250 MG TABS 4669411 AZITHROMYCIN Inac tive PREDNISONE 20 MG TAB 2 tabs daily for 3 days, 1 t ab daily for 3 days, 1/2 tab daily for 2 days PREDNISONE 20 MG TAB 068061 PREDNISON E Inactive AZITHROMYCIN 250 MG TABS 2 po qd x 1 day, then 1 po qd x 4 days AZITHROMYCIN 250 MG TABS 8905084 AZITHROMYCIN Inactiv e PREDNISONE 20 MG TAB 2 tabs daily for 3 days, 1 t ab daily for 3 days, 1/2 tab daily for 2 days PREDNISONE 20 MG TAB 096793 PREDNISON E Inactive Vital Signs Date Name Value Unit Range Description blood pressure, diastolic - 8462-4 71 mm[Hg] [...] - 3141-9 116.06 [lb_av] Weigh t Measured blood pressure, diastolic - 8462-4 75 mm[Hg] BP mathew blood pressure, systolic - 8480-6 105 mm[Hg] BP sys temperature E&M 97.9 [degF] Body temp erature weight E&M - 3141-9 113 [lb_av] Weigh t Measured blood pressure, diastolic - 8462-4 77 mm[Hg] BP mathew blood pressure, systolic - 8480-6 114 mm[Hg] BP sys height E&M - 8302-2 63.5 [in_us] Bdy h eight pulse rate E&M - 8867-4 78 /min H eart rate temperature E&M 97.8 [degF] Body temp erature weight E&M - 3141-9 113 [lb_av] Weigh t Measured blood pressure, diastolic - 8462-4 83 mm[Hg] BP mathew blood pressure, systolic - 8480-6 114 mm[Hg] BP sys height E&M - 8302-2 63.5 [in_us] Bdy h eight pulse rate E&M - 8867-4 76 /min H eart rate respiratory rate E&M - 9279-1 18 /min Resp rate temperature E&M 97.8 [degF] Body temp erature weight E&M - 3141-9 111 [lb_av] Weigh t Measured blood pressure, diastolic - 8462-4 79 mm[Hg] BP mathew blood pressure, systolic - 8480-6 113 mm[Hg] BP sys height E&M - 8302-2 63.5 [in_us] Bdy h eight pulse rate E&M - 8867-4 73 /min H eart rate temperature E&M 97.9 [degF] Body temp erature weight E&M - 3141-9 116.59 [lb_av] Weigh t Measured Diagnostic Results Date Name Value Unit Range Description Lab Report: HGBA1C, CBC W/DIFF, Comp. Me tabolic Panel, Lipid Panel - Chemistry sodium, serum 139 mmol/L 014-944 6343/01/09 potassium, serum 4.3 mmol/L 3.5-5.2 chloride, serum [...] 1.10 mg/dL 0.00-1.00 cholesterol, serum 222 mg/dL 959-635 5181/01/09 triglyceride, serum, fasting 92 mg/dL 30-200 HDL [...] 142-424 Encounters Code Encounter Date Provider Facility CPT-43086 Level 3 Est. Patient 17:08:31 CDT [facility] CPT-39997 Level 3 Est. 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 Patient 09:26:08 PHARMACEUTICAL PHYSICIAN Checo Conklin MD [facility] CPT-21392 Level 3 Est. Patient 11:37:10 CDT Checo Conklin MD [facility] CPT-24520 Level 4 Est. Patient 14:07:38 CDT Checo Conklin MD [facility] CPT-64002 Level 3 Est. Patient 09:54:41 CDT Checo Conklin MD [facility] CPT-06549 Level 3 Est. Patient 11:10:54 CDT Paul Hamlin MD [facility] CPT-22923 Level 3 Est. Patient 14:16:56 PHARMACEUTICAL PHYSICIAN Checo Conklin MD [facility] CPT-38089 Level 3 Est. Patient 11:04:11 PHARMACEUTICAL PHYSICIAN Checo Conklin MD [facility] CPT-00650 Level 3 Est. Patient 17:09:26 CDT Dangelo arroyo MD [facility] CPT-01500 Level 3 Est. Patient 16:54:37 CDT Checo Conklin MD [facility] Procedures Code Procedure Name Date Entry Date Standard Desc ription CPT-J2550 Phenergan 25 mg (Promethazine) 13:59:02 PHARMACEUTICAL PHYSICIAN CPT-J1885 Toradol 60 mg (Ketorolac) 13:59:02 PHARMACEUTICAL PHYSICIAN 2012
--- OUTSIDE RECORDS SUMMARY | 2019-09-29 02:34 | XMS REPORT | Clinical Summary ---
Author Author Admin, Bethany Gonzales Organization [facility] Address Unknown Phone Unavailable Allergies, Adverse Reactions, [...] UTI ICD-599.0 Inactive Checo Conklin MD 2011 HEADACHE, TENSION ICD-307.81 Inactive Checo Conklin MD PHARYNGITIS ICD-462 Inactive Checo Conklin MD OTITIS MEDIA-RIGHT ICD-382.9 Inactive Checo Conklin MD Hypoglycemia, unspecified ICD-251.2 Inactive Checo Conklin MD Insomnia ICD-780.52 Inactive Checo Joshua Onychomycosis, toenails ICD-110.1 Inactive Aracelis Conklin MD ABDOMINAL PAIN RIGHT LOWER QUADRANT ICD-789.03 Inactive Checo Conklin MD Sinusitis ICD-461.9 Inactive Checo Conklin MD Insect bite ICD-919.4 Inactive Checo Conklin MD Mastalgia ICD-611.71 Inactive Checo Joshua Medication List Medication Instructions Start Date Stop Date Generic Name NDC Status Provider Patient Instruction BACTRIM DS 800-160 MG TABS 1 po BID x 7 days 0 SULFAMETHOXAZOLE-TRIMETHOPRIM [id number] Active Checo Conklin MD Active PREDNISONE 20 MG TAB 2 tabs daily for 3 days, 1 t ab daily for 3 days, 1/2 tab daily for 2 days PREDNISONE 11995631331 No Longer Active Checo Conklin MD Active TRIAMCINOLONE ACETONIDE 0.1 % OINT Apply to affected a reas TID for up to 2 weeks TRIAMCINOLONE ACETONIDE 83819501320 No Longer A ctive Checo Conklin MD Active HYDROCODONE-ACETAMINOPHEN 5-325 MG TABS 1/2 to 1 po q 4 hour s prn cough HYDROCODONE-ACETAMINOPHEN 13534836847 Active Paul montgomery MD Active CEFDINIR 300 MG CAPS by mouth twice a day CEFDI JAZZY 05844971104 No Longer Active Dangelo Rangel MD Active CELEXA 20 MG TABS 1 tablet by mouth daily CITAL OPRAM HYDROBROMIDE 65296881833 Active Checo Conklin MD Active BUPROPION HCL (SMOKING DETER) 150 MG [id number] 1 a day for 1 week then 1 twice a day BUPROPION HCL (SMOKING DETER) 90178010454 No Lo nger Active Checo Conklin MD Active SIMVASTATIN 20 MG TABS 1 po qd SIMVASTATIN 8089815347 4 Active Checo Conklin MD Active CHANTIX STARTING MONTH KARTHIK 0.5 MG X 11 & 1 MG X 42 TAB S 0.5mg daily for 3 days, then 0.5mg BID for 4 days, then 1mg BID VARENICLINE TARTRATE 49322051781 No Longer Active Checo Conklin MD Activ e XANAX 0.5 MG TABS 1 po BID PRN anxiety ALPRAZOLAM 25065643633 Active Checo Conklin MD Active CONCERTA 18 MG CR-TABS 1 po q a.m. METHYLPHENID ATE HCL 15649084969 No Longer Active Checo Conklin MD Active REGLAN 10 MG TAB 1 po TID PRN Nausea METOCLOPRA MIDE HCL 12945348332 Active Checo Conklin MD Active AMBIEN 5 MG TAB 1 po qHS PRN Insomnia ZOLPIDEM TARTRATE 51378690878 Active Checo Conklin MD Active TRAZODONE HCL 100 MG TAB 0.5 to 1 po qHS PRN Insomnia TRAZODONE HCL 96988664570 No Longer Active Checo Conklin MD Acti ve FIORICET 325-50-40 MG TAB 1 tablet by mouth four times daily as needed [id number] 04414906855 No Longer Active Checo Conklin MD Active PHENERGAN CREAM* 25mg applied to wrist q6hr PRN Nausea PHENERGAN CREAM* No Longer Active Checo Conklin MD A ctive LAMISIL 250 MG TAB 1 po qd TERBINAFINE HCL 9215059567 1 Active Checo Conklin MD Active FLONASE 50 MCG/ACT SUSP 1 spray each nostril am and hs FLUTICASONE PROPIONATE 73660646293 No Longer Active Checo Conklin MD Activ e ANTIPYRINE-BENZOCAINE 5.4-1.4 % SOLN 1-2 drops in affected ear BENZOCAINE-ANTIPYRINE 99574556163 No Longer Active Checo Conklin MD Active CEFDINIR 300 MG CAPS 1 po bid CEFDINIR 02332012 120 No Longer Active Checo Conklin MD Active PREDNISONE 20 MG TAB 2 tabs daily for 3 days, 1 t ab daily for 3 days, 1/2 tab daily for 2 days PREDNISONE 45646145759 No Longer Active Aracelis Conklin MD Active AZITHROMYCIN 250 MG TABS 2 po qd x 1 day, then 1 po qd x 4 days AZITHROMYCIN 95769143131 No Longer Active Checo Conklin MD Active PREDNISONE 20 MG TAB 2 tabs daily for 3 days, 1 t ab daily for 3 days, 1/2 tab daily for 2 days PREDNISONE 30616619373 No Longer Active Checo Conklin MD Active ZITHROMAX Z-KARTHIK 250 MG TABS 2 today, then 1 daily for 4 days 201 09/18/28 AZITHROMYCIN 87710034545 No Longer Active Paul Hamlin MD Active FOCALIN XR 10 MG [id number] 1 po q a.m. D EXMETHYLPHENIDATE HCL 92347556396 No Longer Active Paul Hamlin MD Activ e PERCOCET 10-325 MG TABS 1 tablet every 6 hours as needed for pain OXYCODONE-ACETAMINOPHEN 78250776637 No Longer Active Paul Hamlin MD Active LORTAB 5 5-500 MG TABS 1/2 to 1 tablet by mouth flaquito ry 4 hours as needed for pain HYDROCODONE-ACETAMINOPHEN 96678816409 No Longer Active Checo Conklin MD Active FOCALIN XR 15 MG [id number] 1 po q a.m. D EXMETHYLPHENIDATE HCL 91104499296 No Longer Active Checo Conklin MD Activ e ZOFRAN ODT 4 MG TBDP 1 po q6hr PRN Nausea ONDAN SETRON 43645782583 No Longer Active Checo Conklin MD Active PERCOCET 5-325 MG TABS 1 tablet by mouth every 6 hours as needed OXYCODONE-ACETAMINOPHEN 65413258457 No Longer Active Checo Conklin MD Active PYRIDIUM 200 MG TABS take 1 tab po TID prn urinary pain. 0 PHENAZOPYRIDINE HCL 17186822338 No Longer Active Checo Conklin MD Active FLUCONAZOLE 150 MG TABS take 1 tab po qday once 04/06 FLUCONAZOLE 03553407687 No Longer Active Dangelo Rangel MD Acti ve CIPRO 500 MG TAB 1 tablet by mouth twice daily CIPROFLOXACIN HCL 95741607178 No Longer Active Dangelo Rangel MD Active PYRIDIUM 200 MG TABS take 1 tab po TID prn urinary pain. 0 PYRIDIUM 200 MG TABS 8950052 PHENAZOPYRIDINE HCL Inactive PERCOCET 5-325 MG TABS 1 tablet by mouth every 6 hours as needed PERCOCET 5-325 MG TABS 0299898 OXYCODONE-ACETAMINOPHEN I nactive ZOFRAN ODT 4 MG TBDP 1 po q6hr PRN Nausea ZOFRAN ODT 4 MG TBDP 742337 ONDANSETRON Inactive FOCALIN XR 15 MG [id number] 1 po q a.m. F OCALIN XR 15 MG [id number] DEXMETHYLPHENIDATE HCL Inactive LORTAB 5 5-500 MG TABS 1/2 to 1 tablet by mouth flaquito ry 4 hours as needed for pain LORTAB 5 5-500 MG TABS HYDROCODONE-A CETAMINOPHEN Inactive PERCOCET 10-325 MG TABS 1 tablet every 6 hours as needed for pain PERCOCET 10-325 MG TABS 6677175 OXYCODONE-ACETAMINOPHEN Inactive FOCALIN XR 10 MG [id number] 1 po q a.m. F OCALIN XR 10 MG [id number] DEXMETHYLPHENIDATE HCL Inactive CEFDINIR 300 MG CAPS 1 po bid CEFDINIR 300 MG CAPS 20 0346 CEFDINIR Inactive ANTIPYRINE-BENZOCAINE 5.4-1.4 % SOLN 1-2 drops in affected ear ANTIPYRINE-BENZOCAINE 5.4-1.4 % SOLN 485188 BENZOCAINE-ANTIPYRINE I nactive FLONASE 50 MCG/ACT SUSP 1 spray each nostril am and hs FLONASE 50 MCG/ACT SUSP 939418 FLUTICASONE PROPIONATE Inactive PHENERGAN CREAM* 25mg applied to wrist q6hr PRN Nausea PHENERGAN CREAM* Inactive FIORICET 325-50-40 MG TAB 1 tablet by mouth four times daily as needed FIORICET 325-50-40 MG TAB ACETAMINOPHEN-C AFF-BUTALBITAL Inactive TRAZODONE HCL 100 MG TAB 0.5 to 1 po qHS PRN Insomnia TRAZODONE HCL 100 MG TAB 958411 TRAZODONE HCL Inactive CONCERTA 18 MG CR-TABS [...] mouth twice daily CIPRO 500 MG TAB 179650 CIPROFLOXACIN HCL Inactive FLUCONAZOLE 150 MG TABS take 1 tab po qday once 04/06 FLUCONAZOLE 150 MG TABS 642557 FLUCONAZOLE Inactive ZITHROMAX Z-KARTHIK 250 MG TABS 2 today, then 1 daily for 4 days 201 09/18/28 ZITHROMAX Z-KARTHIK 250 MG TABS 3743828 AZITHROMYCIN Inac tive PREDNISONE 20 MG TAB 2 tabs daily for 3 days, 1 t ab daily for 3 days, 1/2 tab daily for 2 days PREDNISONE 20 MG TAB 420070 PREDNISON E Inactive AZITHROMYCIN 250 MG TABS 2 po qd x 1 day, then 1 po qd x 4 days AZITHROMYCIN 250 MG TABS 0577946 AZITHROMYCIN Inactiv e PREDNISONE 20 MG TAB 2 tabs daily for 3 days, 1 t ab daily for 3 days, 1/2 tab daily for 2 days PREDNISONE 20 MG TAB 650374 PREDNISON E Inactive CEFDINIR 300 MG CAPS by mouth twice a day CEFDINIR 300 MG CAPS 766886 CEFDINIR Inactive TRIAMCINOLONE ACETONIDE 0.1 % OINT Apply to affected a reas TID for up to 2 weeks TRIAMCINOLONE ACETONIDE 0.1 % OINT 565555 6 TRIAMCINOLONE ACETONIDE Inactive PREDNISONE 20 MG TAB 2 tabs daily for 3 days, 1 t ab daily for 3 days, 1/2 tab daily for 2 days PREDNISONE 20 MG TAB 583871 PREDNISON E Inactive Immunizations Vaccine Administration Date [...] 5.3 % 4.3-6.0 sodium, serum 139 mmol/L 278-024 2815/01/09 potassium, serum 4.3 mmol/L 3.5-5.2 chloride, serum [...] 1.10 mg/dL 0.00-1.00 cholesterol, serum 222 mg/dL 368-043 9965/01/09 triglyceride, serum, fasting 92 mg/dL 30-200 HDL [...] 142-424 Encounters Code Encounter Date Provider Facility CPT-52679 Level 3 Est. Patient 16:53:02 CDT Checo Conklin MD [facility] CPT-54750 Level 3 Est. Patient 16:37:13 CDT Checo Conklin MD [facility] CPT-29434 Level 3 Est. Patient 16:16:59 CDT Paul Hamlin MD [facility] CPT-99929 Level 3 Est. Patient 14:20:13 CDT Dangelo arroyo MD [facility] CPT-65855 Level 4 Est. Patient 11:29:33 CDT Checo Conklin MD [facility] CPT-83723 Level 3 Est. Patient 17:08:31 CDT Checo Conklin MD [facility] CPT-79090 Level 3 Est. 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 Patient 09:26:08 DIRECT SERVICE PROFESSIONAL Checo Conklin MD [facility] CPT-38737 Level 3 Est. Patient 11:37:10 CDT Checo Conklin MD [facility] CPT-72851 Level 4 Est. Patient 14:07:38 CDT Checo Conklin MD [facility] CPT-16791 Level 3 Est. Patient 09:54:41 CDT Checo Conklin MD [facility] CPT-43899 Level 3 Est. Patient 11:10:54 CDT Paul Hamlin MD [facility] CPT-53064 Level 3 Est. Patient 14:16:56 DIRECT SERVICE PROFESSIONAL Checo Conklin MD [facility] CPT-53968 Level 3 Est. Patient 11:04:11 DIRECT SERVICE PROFESSIONAL Checo Conklin MD [facility] CPT-80093 Level 3 Est. Patient 17:09:26 CDT Dangelo arroyo MD [facility] CPT-42111 Level 3 Est. Patient 16:54:37 CDT Checo Conklin MD [facility] Procedures Code Procedure Name Date Entry Date Standard Desc ription CPT-OV Office Visit 11:31:28 CDT CPT-34946 Tubersol 09:39:29 CDT CPT-J2550 Phenergan 25 mg (Promethazine) 13:59:02 DIRECT SERVICE PROFESSIONAL CPT-J1885 Toradol 60 mg (Ketorolac) 13:59:02 DIRECT SERVICE PROFESSIONAL 2012
--- OUTSIDE RECORDS SUMMARY | 2019-09-29 02:34 | XMS REPORT | Clinical Summary ---
[...] tablet by mouth daily CITAL OPRAM HYDROBROMIDE 94280596288 Active Checo Conklin MD Active BUPROPION HCL (SMOKING DETER) 150 MG [id number] 1 a day for 1 week then 1 twice a day BUPROPION HCL (SMOKING DETER) 30547666404 No Lo nger Active Checo Conklin MD Active SIMVASTATIN 20 MG TABS 1 po qd SIMVASTATIN 3728999853 4 Active Checo Conklin MD Active CHANTIX STARTING MONTH KARTHIK 0.5 MG X 11 & 1 MG X 42 TAB S 0.5mg daily for 3 days, then 0.5mg BID for 4 days, then 1mg BID VARENICLINE TARTRATE 61455947579 No Longer Active Checo Conklin MD Activ e XANAX 0.5 MG TABS 1 po BID PRN anxiety ALPRAZOLAM 76302243013 Active Checo Conklin MD Active CONCERTA 18 MG CR-TABS 1 po q a.m. METHYLPHENID ATE HCL 27354210809 No Longer Active Checo Conklin MD Active REGLAN 10 MG TAB 1 po TID PRN Nausea METOCLOPRA MIDE HCL 45316009477 Active Checo Conklin MD Active AMBIEN 5 MG TAB 1 po qHS PRN Insomnia ZOLPIDEM TARTRATE 18240714672 Active Checo Conklin MD Active TRAZODONE HCL 100 MG TAB 0.5 to 1 po qHS PRN Insomnia TRAZODONE HCL 55888138310 No Longer Active Cheoc Conklin MD Acti ve FIORICET 325-50-40 MG TAB 1 tablet by mouth four times daily as needed [id number] 03161898688 No Longer Active Checo Conklin MD Active PHENERGAN CREAM* 25mg applied to wrist q6hr PRN Nausea PHENERGAN CREAM* No Longer Active Checo Conklin MD A ctive LAMISIL 250 MG TAB 1 po qd TERBINAFINE HCL 9203257776 1 Active Checo Conklin MD Active FLONASE 50 MCG/ACT SUSP 1 spray each nostril am and hs FLUTICASONE PROPIONATE 57688490283 No Longer Active Checo Conklin MD Activ e ANTIPYRINE-BENZOCAINE 5.4-1.4 % SOLN 1-2 drops in affected ear BENZOCAINE-ANTIPYRINE 26506652045 No Longer Active Checo Conklin MD Active CEFDINIR 300 MG CAPS 1 po bid CEFDINIR 99808928 120 No Longer Active Checo Conklin MD Active PREDNISONE 20 MG TAB 2 tabs daily for 3 days, 1 t ab daily for 3 days, 1/2 tab daily for 2 days PREDNISONE 18315952384 No Longer Active Aracelis Conklin MD Active AZITHROMYCIN 250 MG TABS 2 po qd x 1 day, then 1 po qd x 4 days AZITHROMYCIN 22475242257 No Longer Active Checo Conklin MD Active PREDNISONE 20 MG TAB 2 tabs daily for 3 days, 1 t ab daily for 3 days, 1/2 tab daily for 2 days PREDNISONE 73685883528 No Longer Active Checo Conklin MD Active ZITHROMAX Z-KARTHIK 250 MG TABS 2 today, then 1 daily for 4 days 201 09/18/28 AZITHROMYCIN 91439582938 No Longer Active Paul Hamlin MD Active FOCALIN XR 10 MG [id number] 1 po q a.m. D EXMETHYLPHENIDATE HCL 31265356526 No Longer Active Paul Hamlin MD Activ e PERCOCET 10-325 MG TABS 1 tablet every 6 hours as needed for pain OXYCODONE-ACETAMINOPHEN 48617274508 No Longer Active Paul Hamlin MD Active LORTAB 5 5-500 MG TABS 1/2 to 1 tablet by mouth flaquito ry 4 hours as needed for pain HYDROCODONE-ACETAMINOPHEN 54241601523 No Longer Active Checo Conklin MD Active FOCALIN XR 15 MG [id number] 1 po q a.m. D EXMETHYLPHENIDATE HCL 20699963829 No Longer Active Checo Conklin MD Activ e ZOFRAN ODT 4 MG TBDP 1 po q6hr PRN Nausea ONDAN SETRON 04659490087 No Longer Active Checo Conklin MD Active PERCOCET 5-325 MG TABS 1 tablet by mouth every 6 hours as needed OXYCODONE-ACETAMINOPHEN 65291869114 No Longer Active Checo Conklin MD Active PYRIDIUM 200 MG TABS take 1 tab po TID prn urinary pain. 0 PHENAZOPYRIDINE HCL 48886122051 No Longer Active Checo Conklin MD Active FLUCONAZOLE 150 MG TABS take 1 tab po qday once 04/06 FLUCONAZOLE 70280327075 No Longer Active Dangelo Rangel MD Acti ve CIPRO 500 MG TAB 1 tablet by mouth twice daily CIPROFLOXACIN HCL 39603935083 No Longer Active Dangelo Rangel MD Active PYRIDIUM 200 MG TABS take 1 tab po TID prn urinary pain. 0 PYRIDIUM 200 MG TABS 2392769 PHENAZOPYRIDINE HCL Inactive PERCOCET 5-325 MG TABS 1 tablet by mouth every 6 hours as needed PERCOCET 5-325 MG TABS 5244052 OXYCODONE-ACETAMINOPHEN I nactive ZOFRAN ODT 4 MG TBDP 1 po q6hr PRN Nausea ZOFRAN ODT 4 MG TBDP 465310 ONDANSETRON Inactive FOCALIN XR 15 MG [id number] 1 po q a.m. F OCALIN XR 15 MG [id number] DEXMETHYLPHENIDATE HCL Inactive LORTAB 5 5-500 MG TABS 1/2 to 1 tablet by mouth flaquito ry 4 hours as needed for pain LORTAB 5 5-500 MG TABS HYDROCODONE-A CETAMINOPHEN Inactive PERCOCET 10-325 MG TABS 1 tablet every 6 hours as needed for pain PERCOCET 10-325 MG TABS 1443852 OXYCODONE-ACETAMINOPHEN Inactive FOCALIN XR 10 MG [id number] 1 po q a.m. F OCALIN XR 10 MG [id number] DEXMETHYLPHENIDATE HCL Inactive CEFDINIR 300 MG CAPS 1 po bid CEFDINIR 300 MG CAPS 20 0346 CEFDINIR Inactive ANTIPYRINE-BENZOCAINE 5.4-1.4 % SOLN 1-2 drops in affected ear ANTIPYRINE-BENZOCAINE 5.4-1.4 % SOLN 030051 BENZOCAINE-ANTIPYRINE I nactive FLONASE 50 MCG/ACT SUSP 1 spray each nostril am and hs FLONASE 50 MCG/ACT SUSP 653177 FLUTICASONE PROPIONATE Inactive PHENERGAN CREAM* 25mg applied to wrist q6hr PRN Nausea PHENERGAN CREAM* Inactive FIORICET 325-50-40 MG TAB 1 tablet by mouth four times daily as needed FIORICET 325-50-40 MG TAB ACETAMINOPHEN-C AFF-BUTALBITAL Inactive TRAZODONE HCL 100 MG TAB 0.5 to 1 po qHS PRN Insomnia TRAZODONE HCL 100 MG TAB 388382 TRAZODONE HCL Inactive CONCERTA 18 MG CR-TABS [...] mouth twice daily CIPRO 500 MG TAB 200978 CIPROFLOXACIN HCL Inactive FLUCONAZOLE 150 MG TABS take 1 tab po qday once 04/06 FLUCONAZOLE 150 MG TABS 467936 FLUCONAZOLE Inactive ZITHROMAX Z-KARTHIK 250 MG TABS 2 today, then 1 daily for 4 days 201 09/18/28 ZITHROMAX Z-KARTHIK 250 MG TABS 6385624 AZITHROMYCIN Inac tive PREDNISONE 20 MG TAB 2 tabs daily for 3 days, 1 t ab daily for 3 days, 1/2 tab daily for 2 days PREDNISONE 20 MG TAB 701362 PREDNISON E Inactive AZITHROMYCIN 250 MG TABS 2 po qd x 1 day, then 1 po qd x 4 days AZITHROMYCIN 250 MG TABS 7892105 AZITHROMYCIN Inactiv e PREDNISONE 20 MG TAB 2 tabs daily for 3 days, 1 t ab daily for 3 days, 1/2 tab daily for 2 days PREDNISONE 20 MG TAB 763713 PREDNISON E Inactive Immunizations Vaccine Administration Date [...] 5.3 % 4.3-6.0 sodium, serum 139 mmol/L 143-799 8982/01/09 potassium, serum 4.3 mmol/L 3.5-5.2 chloride, serum [...] 1.10 mg/dL 0.00-1.00 cholesterol, serum 222 mg/dL 110-209 5882/01/09 triglyceride, serum, fasting 92 mg/dL 30-200 HDL [...] 142-424 Encounters Code Encounter Date Provider Facility CPT-09940 Level 4 Est. Patient 11:29:33 CDT Checo Conklin MD [facility] CPT-82202 Level 3 Est. Patient 17:08:31 CDT Checo Conklin MD [facility] CPT-78527 Level 3 Est. 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 Patient 11:37:10 CDT Checo Conklin MD [facility] CPT-13091 Level 4 Est. Patient 14:07:38 CDT Checo Conklin MD [facility] CPT-67453 Level 3 Est. Patient 09:54:41 CDT Checo Conklin MD [facility] CPT-57736 Level 3 Est. Patient 11:10:54 CDT Paul Hamlin MD [facility] CPT-78038 Level 3 Est. Patient 14:16:56 REPA[employer]ER [employer] Checo Conklin MD [facility] CPT-67706 Level 3 Est. 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 Patient 17:09:26 CDT Dangelo arroyo MD [facility] CPT-85363 Level 3 Est. Patient 16:54:37 CDT Checo Conklin MD [facility] Procedures Code Procedure Name Date Entry Date Standard Desc ription CPT-OV Office Visit 11:31:28 CDT CPT-07761 Tubersol 09:39:29 CDT CPT-J2550 Phenergan 25 mg (Promethazine) 13:59:02 RE[employer]ER [employer] CPT-J1885 Toradol 60 mg (Ketorolac) 13:59:02 REPAIRER [employer]IRS[employer]ING 2012
--- OUTSIDE RECORDS SUMMARY | 2019-09-29 02:34 | XMS REPORT | Clinical Summary ---
Author Author Admin, Bethany Gonzales Organization [facility] Address Unknown Phone Allergies, Adverse Reactions, Alerts [...] migrainosus Breast mass, right 611.72 Resolved Checo ricehy MD Lump or mass in breast FH BREAST CANCER ICD-V16.3 Inactive Checo Joshua [...] Checo Joshua Breast mass, right ICD-611.72 Inactive Cheoc Conklin MD Medication List Medication Instructions Start Date Stop Date Generic Name NDC Status Provider Patient Instruction BUPROPION HCL (SMOKING DETER) 150 MG [id number] 1 a day for 1 week then 1 twice a day BUPROPION HCL (SMOKING DETER) [id number] Activ e Checo Conklin MD Active SIMVASTATIN 20 MG TABS 1 po qd SIMVASTATIN 4055039596 4 Active Checo Conklin MD Active CHANTIX STARTING MONTH KARTHIK 0.5 MG X 11 & 1 MG X 42 TAB S 0.5mg daily for 3 days, then 0.5mg BID for 4 days, then 1mg BID VARENICLINE TARTRATE 59162574416 No Longer Active Checo Conklin MD Activ e XANAX 0.5 MG TABS 1 po BID PRN anxiety ALPRAZOLAM 54069145716 Active Checo Conklin MD Active CONCERTA 18 MG CR-TABS 1 po q a.m. METHYLPHENID ATE HCL 68937617312 No Longer Active Checo Conklin MD Active REGLAN 10 MG TAB 1 po TID PRN Nausea METOCLOPRA MIDE HCL 30180384306 Active Checo Conklin MD Active AMBIEN 5 MG TAB 1 po qHS PRN Insomnia ZOLPIDEM TARTRATE 74683666865 Active Paul Hamlin MD Active TRAZODONE HCL 100 MG TAB 0.5 to 1 po qHS PRN Insomnia TRAZODONE HCL 09137349170 No Longer Active Checo Conklin MD Acti ve FIORICET 325-50-40 MG TAB 1 tablet by mouth four times daily as needed [id number] 22824541199 No Longer Active Checo Conklin MD Active PHENERGAN CREAM* 25mg applied to wrist q6hr PRN Nausea PHENERGAN CREAM* No Longer Active Checo Conklin MD A ctive LAMISIL 250 MG TAB 1 po qd TERBINAFINE HCL 5686778387 1 Active Checo Conklin MD Active FLONASE 50 MCG/ACT SUSP 1 spray each nostril am and hs FLUTICASONE PROPIONATE 98545118229 No Longer Active Checo Conklin MD Activ e ANTIPYRINE-BENZOCAINE 5.4-1.4 % SOLN 1-2 drops in affected ear BENZOCAINE-ANTIPYRINE 89535943817 No Longer Active Checo Conklin MD Active CEFDINIR 300 MG CAPS 1 po bid CEFDINIR 35764021 120 No Longer Active Checo Conklin MD Active PREDNISONE 20 MG TAB 2 tabs daily for 3 days, 1 t ab daily for 3 days, 1/2 tab daily for 2 days PREDNISONE 64751460058 No Longer Active Aracelis Conklin MD Active AZITHROMYCIN 250 MG TABS 2 po qd x 1 day, then 1 po qd x 4 days AZITHROMYCIN 59537215860 No Longer Active Checo Conklin MD Active PREDNISONE 20 MG TAB 2 tabs daily for 3 days, 1 t ab daily for 3 days, 1/2 tab daily for 2 days PREDNISONE 58952035242 No Longer Active Checo Conklin MD Active ZITHROMAX Z-KARTHIK 250 MG TABS 2 today, then 1 daily for 4 days 201 09/18/28 AZITHROMYCIN 77109924714 No Longer Active Paul Hamlin MD Active FOCALIN XR 10 MG [id number] 1 po q a.m. D EXMETHYLPHENIDATE HCL 31718473161 No Longer Active Paul Hamlin MD Activ e PERCOCET 10-325 MG TABS 1 tablet every 6 hours as needed for pain OXYCODONE-ACETAMINOPHEN 72265939523 No Longer Active Paul Hamlin MD Active LORTAB 5 5-500 MG TABS 1/2 to 1 tablet by mouth flaquito ry 4 hours as needed for pain HYDROCODONE-ACETAMINOPHEN 53024833747 No Longer Active Checo Conklin MD Active FOCALIN XR 15 MG [id number] 1 po q a.m. D EXMETHYLPHENIDATE HCL 46128622498 No Longer Active Checo Conklin MD Activ e ZOFRAN ODT 4 MG TBDP 1 po q6hr PRN Nausea ONDAN SETRON 76622200721 No Longer Active Checo Conklin MD Active PERCOCET 5-325 MG TABS 1 tablet by mouth every 6 hours as needed OXYCODONE-ACETAMINOPHEN 32241699207 No Longer Active Checo Conklin MD Active PYRIDIUM 200 MG TABS take 1 tab po TID prn urinary pain. 0 PHENAZOPYRIDINE HCL 42757832077 No Longer Active Checo Conklin MD Active FLUCONAZOLE 150 MG TABS take 1 tab po qday once 04/06 FLUCONAZOLE 07505966842 No Longer Active Dangelo Rangel MD Acti ve CIPRO 500 MG TAB 1 tablet by mouth twice daily CIPROFLOXACIN HCL 78398533747 No Longer Active Dangelo Rangel MD Active PYRIDIUM 200 MG TABS take 1 tab po TID prn urinary pain. 0 PYRIDIUM 200 MG TABS 2500226 PHENAZOPYRIDINE HCL Inactive PERCOCET 5-325 MG TABS 1 tablet by mouth every 6 hours as needed PERCOCET 5-325 MG TABS 5154463 OXYCODONE-ACETAMINOPHEN I nactive ZOFRAN ODT 4 MG TBDP 1 po q6hr PRN Nausea ZOFRAN ODT 4 MG TBDP 594728 ONDANSETRON Inactive FOCALIN XR 15 MG [id number] 1 po q a.m. F OCALIN XR 15 MG [id number] DEXMETHYLPHENIDATE HCL Inactive LORTAB 5 5-500 MG TABS 1/2 to 1 tablet by mouth flaquito ry 4 hours as needed for pain LORTAB 5 5-500 MG TABS HYDROCODONE-A CETAMINOPHEN Inactive PERCOCET 10-325 MG TABS 1 tablet every 6 hours as needed for pain PERCOCET 10-325 MG TABS 5122163 OXYCODONE-ACETAMINOPHEN Inactive FOCALIN XR 10 MG [id number] 1 po q a.m. F OCALIN XR 10 MG [id number] DEXMETHYLPHENIDATE HCL Inactive CEFDINIR 300 MG CAPS 1 po bid CEFDINIR 300 MG CAPS 20 0346 CEFDINIR Inactive ANTIPYRINE-BENZOCAINE 5.4-1.4 % SOLN 1-2 drops in affected ear ANTIPYRINE-BENZOCAINE 5.4-1.4 % SOLN 795170 BENZOCAINE-ANTIPYRINE I nactive FLONASE 50 MCG/ACT SUSP 1 spray each nostril am and hs FLONASE 50 MCG/ACT SUSP 166558 FLUTICASONE PROPIONATE Inactive PHENERGAN CREAM* 25mg applied to wrist q6hr PRN Nausea PHENERGAN CREAM* Inactive FIORICET 325-50-40 MG TAB 1 tablet by mouth four times daily as needed FIORICET 325-50-40 MG TAB ACETAMINOPHEN-C AFF-BUTALBITAL Inactive TRAZODONE HCL 100 MG TAB 0.5 to 1 po qHS PRN Insomnia TRAZODONE HCL 100 MG TAB 712206 TRAZODONE HCL Inactive CONCERTA 18 MG CR-TABS [...] mouth twice daily CIPRO 500 MG TAB 089641 CIPROFLOXACIN HCL Inactive FLUCONAZOLE 150 MG TABS take 1 tab po qday once 04/06 FLUCONAZOLE 150 MG TABS 035724 FLUCONAZOLE Inactive ZITHROMAX Z-KARTHIK 250 MG TABS 2 today, then 1 daily for 4 days 201 09/18/28 ZITHROMAX Z-KARTHIK 250 MG TABS 9157825 AZITHROMYCIN Inac tive PREDNISONE 20 MG TAB 2 tabs daily for 3 days, 1 t ab daily for 3 days, 1/2 tab daily for 2 days PREDNISONE 20 MG TAB 027400 PREDNISON E Inactive AZITHROMYCIN 250 MG TABS 2 po qd x 1 day, then 1 po qd x 4 days AZITHROMYCIN 250 MG TABS 0673044 AZITHROMYCIN Inactiv e PREDNISONE 20 MG TAB 2 tabs daily for 3 days, 1 t ab daily for 3 days, 1/2 tab daily for 2 days PREDNISONE 20 MG TAB 312500 PREDNISON E Inactive Vital Signs Date Name [...] - [id number] 113 [lb_av] Weigh t Measured Diagnostic Results Date Name Value Unit Range Description Lab Report: HGBA1C, CBC W/DIFF, Comp. Me tabolic Panel, Lipid Panel - Chemistry sodium, serum 139 mmol/L 080-014 6230/01/09 potassium, serum 4.3 mmol/L 3.5-5.2 chloride, serum [...] 1.10 mg/dL 0.00-1.00 cholesterol, serum 222 mg/dL 259-601 6555/01/09 triglyceride, serum, fasting 92 mg/dL 30-200 HDL [...] 142-424 Encounters Code Encounter Date Provider Facility CPT-74307 Level 4 Est. Patient 11:29:33 CDT Checo Conklin MD [facility] CPT-60259 Level 3 Est. Patient 17:08:31 CDT Checo Conklin MD [facility] CPT-71726 Level 3 Est. 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 Patient 09:26:08 BUNKER WORKER Checo Conklin MD [facility] CPT-30655 Level 3 Est. Patient 11:37:10 CDT Checo Conklin MD [facility] CPT-79120 Level 4 Est. Patient 14:07:38 CDT Checo Conklin MD [facility] CPT-12243 Level 3 Est. Patient 09:54:41 CDT Checo Conklin MD [facility] CPT-34988 Level 3 Est. Patient 11:10:54 CDT Paul Hamlin MD [facility] CPT-37839 Level 3 Est. 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 Patient 11:04:11 BUNKER WORKER Checo Conklin MD [facility] CPT-53310 Level 3 Est. Patient 17:09:26 CDT Dangelo arroyo MD [facility] CPT-52882 Level 3 Est. Patient 16:54:37 CDT Checo Conklin MD [facility] Procedures Code Procedure Name Date Entry Date Standard Desc ription CPT-J2550 Phenergan 25 mg (Promethazine) 13:59:02 BUNKER WORKER CPT-J1885 Toradol 60 mg (Ketorolac) 13:59:02 BUNKER WORKER 2012
--- OUTSIDE RECORDS SUMMARY | 2019-09-29 02:34 | XMS REPORT | Clinical Summary ---
Author Author Admin, Bethany Ayala [facility] Address Unknown Phone Unavailable [...] 1 po qd x 4 days AZITHROMYCIN 18359099402 No Longer Active Checo Conklin MD Active HYDROCODONE-ACETAMINOPHEN 5-325 MG TABS 1 po q 6hr PRN Pain 2013 HYDROCODONE-ACETAMINOPHEN 28997836096 No Longer Active Lenora Conklin MD Active PHENAZOPYRIDINE HCL 200 MG TABS take 1 tab po TID for bladder pa in PHENAZOPYRIDINE HCL 24923985193 No Longer Active Checo Joshua Active CIPRO 500 MG TAB 1 tablet by mouth twice daily CIPROFLOXACIN HCL 98192005520 No Longer Active Dangelo Rangel MD Active HYDROCODONE-ACETAMINOPHEN 5-325 MG TABS 1/2 to 1 po q 4 hour s prn cough HYDROCODONE-ACETAMINOPHEN 73446567098 No Longer Activ e Dangelo Rangel MD Active BACTRIM DS 800-160 MG TABS 1 po BID x 7 days 0 SULFAMETHOXAZOLE-TRIMETHOPRIM 38181570305 No Longer Active Checo Conklin MD Active PREDNISONE 20 MG TAB 2 tabs daily for 3 days, 1 t ab daily for 3 days, 1/2 tab daily for 2 days PREDNISONE 16279557822 No Longer Active Checo Conklin MD Active TRIAMCINOLONE ACETONIDE 0.1 % OINT Apply to affected a reas TID for up to 2 weeks TRIAMCINOLONE ACETONIDE 96012642841 No Longer A ctive Checo Conklin MD Active CEFDINIR 300 MG CAPS by mouth twice a day CEFDI JAZZY 27641581869 No Longer Active Dangelo Rangel MD Active CELEXA 20 MG TABS 1 tablet by mouth daily CITAL OPRAM HYDROBROMIDE 89213317155 Active Checo Conklin MD Active BUPROPION HCL (SMOKING DETER) 150 MG [id number] 1 a day for 1 week then 1 twice a day BUPROPION HCL (SMOKING DETER) 16813319236 No Lo nger Active Checo Conklin MD Active SIMVASTATIN 20 MG TABS 1 po qd SIMVASTATIN 1320864795 5 Active Checo Conklin MD Active CHANTIX STARTING MONTH KARTHIK 0.5 MG X 11 & 1 MG X 42 TAB S 0.5mg daily for 3 days, then 0.5mg BID for 4 days, then 1mg BID VARENICLINE TARTRATE 19157695199 No Longer Active Checo Conklin MD Activ e XANAX 0.5 MG TABS 1 po BID PRN anxiety ALPRAZOLAM 63830120937 Active Efren Medel BULLET SWAGING MACHINE OPERATOR Active CONCERTA 18 MG CR-TABS 1 po q a.m. METHYLPHENID ATE HCL 96721773690 No Longer Active Checo Conklin MD Active REGLAN 10 MG TAB 1 po TID PRN Nausea METOCLOPRA MIDE HCL 84892607243 Active Checo Conklin MD Active AMBIEN 5 MG TAB 1 po qHS PRN Insomnia ZOLPIDEM TARTRATE 95787917971 Active Efren Onealkenny BULLET SWAGING MACHINE OPERATOR Active TRAZODONE HCL 100 MG TAB 0.5 to 1 po qHS PRN Insomnia TRAZODONE HCL 41891243001 No Longer Active Checo Conklin MD Acti ve FIORICET 325-50-40 MG TAB 1 tablet by mouth four times daily as needed [id number] 27405760049 No Longer Active Checo Conklin MD Active PHENERGAN CREAM* 25mg applied to wrist q6hr PRN Nausea PHENERGAN CREAM* No Longer Active Checo Conklin MD A ctive LAMISIL 250 MG TAB 1 po qd TERBINAFINE HCL 6309207025 1 Active Checo Conklin MD Active FLONASE 50 MCG/ACT SUSP 1 spray each nostril am and hs FLUTICASONE PROPIONATE 11073372119 No Longer Active Checo Conklin MD Activ e ANTIPYRINE-BENZOCAINE 5.4-1.4 % SOLN 1-2 drops in affected ear BENZOCAINE-ANTIPYRINE 88083663305 No Longer Active Checo Conklin MD Active CEFDINIR 300 MG CAPS 1 po bid CEFDINIR 57591082 120 No Longer Active Checo Conklin MD Active PREDNISONE 20 MG TAB 2 tabs daily for 3 days, 1 t ab daily for 3 days, 1/2 tab daily for 2 days PREDNISONE 65485919174 No Longer Active Aracelis Conklin MD Active AZITHROMYCIN 250 MG TABS 2 po qd x 1 day, then 1 po qd x 4 days AZITHROMYCIN 63807778513 No Longer Active Checo Conklin MD Active PREDNISONE 20 MG TAB 2 tabs daily for 3 days, 1 t ab daily for 3 days, 1/2 tab daily for 2 days PREDNISONE 26903855370 No Longer Active Checo Conklin MD Active ZITHROMAX Z-KARTHIK 250 MG TABS 2 today, then 1 daily for 4 days 201 09/18/28 AZITHROMYCIN 01262583105 No Longer Active Paul Hamlin MD Active FOCALIN XR 10 MG [id number] 1 po q a.m. D EXMETHYLPHENIDATE HCL 31907237854 No Longer Active Paul Hamlin MD Activ e PERCOCET 10-325 MG TABS 1 tablet every 6 hours as needed for pain OXYCODONE-ACETAMINOPHEN 56012605712 No Longer Active Paul Hamlin MD Active LORTAB 5 5-500 MG TABS 1/2 to 1 tablet by mouth flaquito ry 4 hours as needed for pain HYDROCODONE-ACETAMINOPHEN 93566323004 No Longer Active Checo Conklin MD Active FOCALIN XR 15 MG [id number] 1 po q a.m. D EXMETHYLPHENIDATE HCL 15164004329 No Longer Active Checo Conklin MD Activ e ZOFRAN ODT 4 MG TBDP 1 po q6hr PRN Nausea ONDAN SETRON 38221280984 No Longer Active Checo Conklin MD Active PERCOCET 5-325 MG TABS 1 tablet by mouth every 6 hours as needed OXYCODONE-ACETAMINOPHEN 10615027894 No Longer Active Checo Conklin MD Active PYRIDIUM 200 MG TABS take 1 tab po TID prn urinary pain. 0 PHENAZOPYRIDINE HCL 39029061794 No Longer Active Checo Conklin MD Active FLUCONAZOLE 150 MG TABS take 1 tab po qday once 04/06 FLUCONAZOLE 62344009293 No Longer Active Dangelo Rangel MD Acti ve CIPRO 500 MG TAB 1 tablet by mouth twice daily CIPROFLOXACIN HCL 08840208058 No Longer Active Dangelo Rangel MD Active PYRIDIUM 200 MG TABS take 1 tab po TID prn urinary pain. 0 PYRIDIUM 200 MG TABS 9079122 PHENAZOPYRIDINE HCL Inactive PERCOCET 5-325 MG TABS 1 tablet by mouth every 6 hours as needed PERCOCET 5-325 MG TABS 6203358 OXYCODONE-ACETAMINOPHEN I nactive ZOFRAN ODT 4 MG TBDP 1 po q6hr PRN Nausea ZOFRAN ODT 4 MG TBDP 368284 ONDANSETRON Inactive FOCALIN XR 15 MG [id number] 1 po q a.m. F OCALIN XR 15 MG [id number] DEXMETHYLPHENIDATE HCL Inactive LORTAB 5 5-500 MG TABS 1/2 to 1 tablet by mouth flaquito ry 4 hours as needed for pain LORTAB 5 5-500 MG TABS HYDROCODONE-A CETAMINOPHEN Inactive PERCOCET 10-325 MG TABS 1 tablet every 6 hours as needed for pain PERCOCET 10-325 MG TABS 9865538 OXYCODONE-ACETAMINOPHEN Inactive FOCALIN XR 10 MG [id number] 1 po q a.m. F OCALIN XR 10 MG [id number] DEXMETHYLPHENIDATE HCL Inactive CEFDINIR 300 MG CAPS 1 po bid CEFDINIR 300 MG CAPS 20 0346 CEFDINIR Inactive ANTIPYRINE-BENZOCAINE 5.4-1.4 % SOLN 1-2 drops in affected ear ANTIPYRINE-BENZOCAINE 5.4-1.4 % SOLN 726648 BENZOCAINE-ANTIPYRINE I nactive FLONASE 50 MCG/ACT SUSP 1 spray each nostril am and hs FLONASE 50 MCG/ACT SUSP 132553 FLUTICASONE PROPIONATE Inactive PHENERGAN CREAM* 25mg applied to wrist q6hr PRN Nausea PHENERGAN CREAM* Inactive FIORICET 325-50-40 MG TAB 1 tablet by mouth four times daily as needed FIORICET 325-50-40 MG TAB ACETAMINOPHEN-C AFF-BUTALBITAL Inactive TRAZODONE HCL 100 MG TAB 0.5 to 1 po qHS PRN Insomnia TRAZODONE HCL 100 MG TAB 718380 TRAZODONE HCL Inactive CONCERTA 18 MG CR-TABS [...] s prn cough HYDROCODONE-ACETAMINOPHEN 5-325 MG TABS 936571 HYDROCODONE-ACETAMINOPHEN Inactive PHENAZOPYRIDINE HCL 200 MG TABS take 1 tab po TID for bladder pa in PHENAZOPYRIDINE HCL 200 MG TABS 8736279 PHENAZOPYRIDINE HCL Inactive HYDROCODONE-ACETAMINOPHEN 5-325 MG TABS 1 po q 6hr PRN Pain 2013 HYDROCODONE-ACETAMINOPHEN 5-325 MG TABS 295942 HYDROCODONE-ACETAMINOPHEN Inactive CIPRO 500 MG TAB 1 tablet by mouth twice daily CIPRO 500 MG TAB 260106 CIPROFLOXACIN HCL Inactive FLUCONAZOLE 150 MG TABS take 1 tab po qday once 04/06 FLUCONAZOLE 150 MG TABS 708016 FLUCONAZOLE Inactive ZITHROMAX Z-KARTHIK 250 MG TABS 2 today, then 1 daily for 4 days 201 09/18/28 ZITHROMAX Z-KARTHIK 250 MG TABS 5795395 AZITHROMYCIN Inac tive PREDNISONE 20 MG TAB 2 tabs daily for 3 days, 1 t ab daily for 3 days, 1/2 tab daily for 2 days PREDNISONE 20 MG TAB 122705 PREDNISON E Inactive AZITHROMYCIN 250 MG TABS 2 po qd x 1 day, then 1 po qd x 4 days AZITHROMYCIN 250 MG TABS 6227547 AZITHROMYCIN Inactiv e PREDNISONE 20 MG TAB 2 tabs daily for 3 days, 1 t ab daily for 3 days, 1/2 tab daily for 2 days PREDNISONE 20 MG TAB 932596 PREDNISON E Inactive CEFDINIR 300 MG CAPS by mouth twice a day CEFDINIR 300 MG CAPS 726462 CEFDINIR Inactive TRIAMCINOLONE ACETONIDE 0.1 % OINT Apply to affected a reas TID for up to 2 weeks TRIAMCINOLONE ACETONIDE 0.1 % OINT 811112 6 TRIAMCINOLONE ACETONIDE Inactive PREDNISONE 20 MG TAB 2 tabs daily for 3 days, 1 t ab daily for 3 days, 1/2 tab daily for 2 days PREDNISONE 20 MG TAB 964397 PREDNISON E Inactive BACTRIM DS 800-160 MG TABS 1 po BID x 7 days 0 BACTRIM DS 800-160 MG TABS SULFAMETHOXAZOLE-TRIMETHOPRIM Inactive CIPRO 500 MG TAB 1 tablet by mouth twice daily CIPRO 500 MG TAB 956575 CIPROFLOXACIN HCL Inactive AZITHROMYCIN 250 MG TABS 2 po qd x 1 day, then 1 po qd x 4 days AZITHROMYCIN 250 MG TABS 4160167 AZITHROMYCIN Inactiv e Immunizations Vaccine Administration Date [...] Panel - Chemistry sodium, serum 139 mmol/L 443-570 9070/10/24 potassium, serum 4.1 mmol/L 3.5-5.2 chloride, serum [...] 0.80 mg/dL 0.00-1.00 cholesterol, serum 147 mg/dL 829-075 2887/10/24 triglyceride, serum, fasting 112 mg/dL 30-200 HDL cholesterol, serum 40 mg/dL 32-96 LDL cholesterol, serum 85 mg/dL 0-130 Lab Report: UADIP W/MICRO, AUTO - Urinal ysis urine color Unable to read macroscopic due t o interfering substance Colorless;Lightyellow;Straw;Yellow appearance, urine red-orange clear Clear Encounters Code Encounter Date Provider Facility CPT-87897 Level 3 Est. 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 Patient 12:29:32 CDT Dangelo arroyo MD [facility] CPT-65944 Level 3 Est. Patient 16:53:02 CDT Checo Conklin MD [facility] CPT-55328 Level 3 Est. Patient 16:37:13 CDT Checo Conklin MD [facility] CPT-02770 Level 3 Est. Patient 16:16:59 CDT Paul Hamlin MD [facility] CPT-89762 Level 3 Est. Patient 14:20:13 CDT Dangelo arroyo MD [facility] CPT-74362 Level 4 Est. Patient 11:29:33 CDT Checo Conklin MD [facility] CPT-83190 Level 3 Est. Patient 17:08:31 CDT Checo Conklin MD [facility] CPT-50700 Level 3 Est. 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 Patient 11:37:10 CDT Checo Conklin MD [facility] CPT-65027 Level 4 Est. Patient 14:07:38 CDT Checo Conklin MD [facility] CPT-00442 Level 3 Est. Patient 09:54:41 CDT Checo Conklin MD [facility] CPT-91811 Level 3 Est. Patient 11:10:54 CDT Paul Hamlin MD [facility] CPT-24917 Level 3 Est. 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 Patient 11:04:11 CARAMEL COLORING OPERATOR Checo Conklin MD [facility] CPT-91945 Level 3 Est. Patient 17:09:26 CDT Dangelo arroyo MD [facility] CPT-38572 Level 3 Est. Patient 16:54:37 CDT Checo Conklin MD [facility] Procedures Code Procedure Name Date Entry Date Standard Desc ription CPT-OV Office Visit 11:31:28 CDT CPT-25273 Tubersol 09:39:29 CDT CPT-J2550 Phenergan 25 mg (Promethazine) 13:59:02 CARAMEL COLORING OPERATOR CPT-J1885 Toradol 60 mg (Ketorolac) 13:59:02 CARAMEL COLORING OPERATOR 2012
--- OUTSIDE RECORDS SUMMARY | 2019-09-29 02:35 | XMS REPORT | Clinical Summary ---
Author Author Admin, Bethany Ayala [facility] Address Unknown Phone Unavailable Allergies, [...] Generic Name NDC Status Provider Patient Instruction CEFDINIR 300 MG CAPS by mouth twice a day CEFDI JAZZY [id number] Active Dangelo Rangel MD Active CELEXA 20 MG TABS 1 tablet by mouth daily CITAL OPRAM HYDROBROMIDE 09932979049 Active Checo Conklin MD Active BUPROPION HCL (SMOKING DETER) 150 MG [id number] 1 a day for 1 week then 1 twice a day BUPROPION HCL (SMOKING DETER) 92401386130 No Lo nger Active Checo Conklin MD Active SIMVASTATIN 20 MG TABS 1 po qd SIMVASTATIN 6851066416 4 Active Checo Conklin MD Active CHANTIX STARTING MONTH KARTHIK 0.5 MG X 11 & 1 MG X 42 TAB S 0.5mg daily for 3 days, then 0.5mg BID for 4 days, then 1mg BID VARENICLINE TARTRATE 66148996609 No Longer Active Checo Conklin MD Activ e XANAX 0.5 MG TABS 1 po BID PRN anxiety ALPRAZOLAM 51468188525 Active Checo Conklin MD Active CONCERTA 18 MG CR-TABS 1 po q a.m. METHYLPHENID ATE HCL 39757270990 No Longer Active Checo Conklin MD Active REGLAN 10 MG TAB 1 po TID PRN Nausea METOCLOPRA MIDE HCL 19269407983 Active Cheoc Conklin MD Active AMBIEN 5 MG TAB 1 po qHS PRN Insomnia ZOLPIDEM TARTRATE 96423466900 Active Checo Conklin MD Active TRAZODONE HCL 100 MG TAB 0.5 to 1 po qHS PRN Insomnia TRAZODONE HCL 90177308136 No Longer Active Checo Conklin MD Acti ve FIORICET 325-50-40 MG TAB 1 tablet by mouth four times daily as needed [id number] 35390182415 No Longer Active Checo Conklin MD Active PHENERGAN CREAM* 25mg applied to wrist q6hr PRN Nausea PHENERGAN CREAM* No Longer Active Checo Conklin MD A ctive LAMISIL 250 MG TAB 1 po qd TERBINAFINE HCL 8674409987 1 Active Checo Conklin MD Active FLONASE 50 MCG/ACT SUSP 1 spray each nostril am and hs FLUTICASONE PROPIONATE 80434650042 No Longer Active Checo Conklin MD Activ e ANTIPYRINE-BENZOCAINE 5.4-1.4 % SOLN 1-2 drops in affected ear BENZOCAINE-ANTIPYRINE 10715213627 No Longer Active Checo Conklin MD Active CEFDINIR 300 MG CAPS 1 po bid CEFDINIR 92321275 120 No Longer Active Checo Conklin MD Active PREDNISONE 20 MG TAB 2 tabs daily for 3 days, 1 t ab daily for 3 days, 1/2 tab daily for 2 days PREDNISONE 28902639758 No Longer Active Aracelis Conklin MD Active AZITHROMYCIN 250 MG TABS 2 po qd x 1 day, then 1 po qd x 4 days AZITHROMYCIN 68113075624 No Longer Active Checo Conklin MD Active PREDNISONE 20 MG TAB 2 tabs daily for 3 days, 1 t ab daily for 3 days, 1/2 tab daily for 2 days PREDNISONE 53016599381 No Longer Active Checo Conklin MD Active ZITHROMAX Z-KARTHIK 250 MG TABS 2 today, then 1 daily for 4 days 201 09/18/28 AZITHROMYCIN 73670993522 No Longer Active Paul Hamlin MD Active FOCALIN XR 10 MG [id number] 1 po q a.m. D EXMETHYLPHENIDATE HCL 27746217839 No Longer Active Paul Hamlin MD Activ e PERCOCET 10-325 MG TABS 1 tablet every 6 hours as needed for pain OXYCODONE-ACETAMINOPHEN 52005296378 No Longer Active Paul Hamlin MD Active LORTAB 5 5-500 MG TABS 1/2 to 1 tablet by mouth flaquito ry 4 hours as needed for pain HYDROCODONE-ACETAMINOPHEN 95984620212 No Longer Active Checo Conklin MD Active FOCALIN XR 15 MG [id number] 1 po q a.m. D EXMETHYLPHENIDATE HCL 64913749128 No Longer Active Checo Conklin MD Activ e ZOFRAN ODT 4 MG TBDP 1 po q6hr PRN Nausea ONDAN SETRON 88326961567 No Longer Active Checo Conklin MD Active PERCOCET 5-325 MG TABS 1 tablet by mouth every 6 hours as needed OXYCODONE-ACETAMINOPHEN 44993192373 No Longer Active Checo Conklin MD Active PYRIDIUM 200 MG TABS take 1 tab po TID prn urinary pain. 0 PHENAZOPYRIDINE HCL 73668819768 No Longer Active Checo Conklin MD Active FLUCONAZOLE 150 MG TABS take 1 tab po qday once 04/06 FLUCONAZOLE 02952125601 No Longer Active Dangelo Rangel MD Acti ve CIPRO 500 MG TAB 1 tablet by mouth twice daily CIPROFLOXACIN HCL 04855178168 No Longer Active Dangelo Rangel MD Active PYRIDIUM 200 MG TABS take 1 tab po TID prn urinary pain. 0 PYRIDIUM 200 MG TABS 9753474 PHENAZOPYRIDINE HCL Inactive PERCOCET 5-325 MG TABS 1 tablet by mouth every 6 hours as needed PERCOCET 5-325 MG TABS 2902289 OXYCODONE-ACETAMINOPHEN I nactive ZOFRAN ODT 4 MG TBDP 1 po q6hr PRN Nausea ZOFRAN ODT 4 MG TBDP 836325 ONDANSETRON Inactive FOCALIN XR 15 MG [id number] 1 po q a.m. F OCALIN XR 15 MG [id number] DEXMETHYLPHENIDATE HCL Inactive LORTAB 5 5-500 MG TABS 1/2 to 1 tablet by mouth flaquito ry 4 hours as needed for pain LORTAB 5 5-500 MG TABS HYDROCODONE-A CETAMINOPHEN Inactive PERCOCET 10-325 MG TABS 1 tablet every 6 hours as needed for pain PERCOCET 10-325 MG TABS 6949518 OXYCODONE-ACETAMINOPHEN Inactive FOCALIN XR 10 MG [id number] 1 po q a.m. F OCALIN XR 10 MG [id number] DEXMETHYLPHENIDATE HCL Inactive CEFDINIR 300 MG CAPS 1 po bid CEFDINIR 300 MG CAPS 20 0346 CEFDINIR Inactive ANTIPYRINE-BENZOCAINE 5.4-1.4 % SOLN 1-2 drops in affected ear ANTIPYRINE-BENZOCAINE 5.4-1.4 % SOLN 088354 BENZOCAINE-ANTIPYRINE I nactive FLONASE 50 MCG/ACT SUSP 1 spray each nostril am and hs FLONASE 50 MCG/ACT SUSP 377020 FLUTICASONE PROPIONATE Inactive PHENERGAN CREAM* 25mg applied to wrist q6hr PRN Nausea PHENERGAN CREAM* Inactive FIORICET 325-50-40 MG TAB 1 tablet by mouth four times daily as needed FIORICET 325-50-40 MG TAB ACETAMINOPHEN-C AFF-BUTALBITAL Inactive TRAZODONE HCL 100 MG TAB 0.5 to 1 po qHS PRN Insomnia TRAZODONE HCL 100 MG TAB 955979 TRAZODONE HCL Inactive CONCERTA 18 MG CR-TABS [...] mouth twice daily CIPRO 500 MG TAB 723533 CIPROFLOXACIN HCL Inactive FLUCONAZOLE 150 MG TABS take 1 tab po qday once 04/06 FLUCONAZOLE 150 MG TABS 243883 FLUCONAZOLE Inactive ZITHROMAX Z-KARTHIK 250 MG TABS 2 today, then 1 daily for 4 days 201 09/18/28 ZITHROMAX Z-KARTHIK 250 MG TABS 2704027 AZITHROMYCIN Inac tive PREDNISONE 20 MG TAB 2 tabs daily for 3 days, 1 t ab daily for 3 days, 1/2 tab daily for 2 days PREDNISONE 20 MG TAB 430929 PREDNISON E Inactive AZITHROMYCIN 250 MG TABS 2 po qd x 1 day, then 1 po qd x 4 days AZITHROMYCIN 250 MG TABS 7959107 AZITHROMYCIN Inactiv e PREDNISONE 20 MG TAB 2 tabs daily for 3 days, 1 t ab daily for 3 days, 1/2 tab daily for 2 days PREDNISONE 20 MG TAB 172358 PREDNISON E Inactive Immunizations Vaccine Administration Date [...] 5.3 % 4.3-6.0 sodium, serum 139 mmol/L 790-863 4491/01/09 potassium, serum 4.3 mmol/L 3.5-5.2 chloride, serum [...] 1.10 mg/dL 0.00-1.00 cholesterol, serum 222 mg/dL 457-986 4695/01/09 triglyceride, serum, fasting 92 mg/dL 30-200 HDL [...] 142-424 Encounters Code Encounter Date Provider Facility CPT-82906 Level 3 Est. Patient 14:20:13 CDT Dangelo arroyo MD [facility] CPT-09362 Level 4 Est. Patient 11:29:33 CDT Checo Conklin MD [facility] CPT-93205 Level 3 Est. Patient 17:08:31 CDT Checo Conklin MD [facility] CPT-06066 Level 3 Est. 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 Patient 11:37:10 CDT Checo Conklin MD [facility] CPT-07051 Level 4 Est. Patient 14:07:38 CDT Checo Conklin MD [facility] CPT-43037 Level 3 Est. Patient 09:54:41 CDT Checo Conklin MD [facility] CPT-73109 Level 3 Est. Patient 11:10:54 CDT Paul Hamlin MD [facility] CPT-68888 Level 3 Est. 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 Patient 11:04:11 CHIEF LOCK TENDER OPERATOR Checo Conklin MD [facility] CPT-22339 Level 3 Est. Patient 17:09:26 CDT Dangelo arroyo MD [facility] CPT-27456 Level 3 Est. Patient 16:54:37 CDT Checo Conklin MD [facility] Procedures Code Procedure Name Date Entry Date Standard Desc ription CPT-OV Office Visit 11:31:28 CDT CPT-19986 Tubersol 09:39:29 CDT CPT-J2550 Phenergan 25 mg (Promethazine) 13:59:02 CHIEF LOCK TENDER OPERATOR CPT-J1885 Toradol 60 mg (Ketorolac) 13:59:02 CHIEF LOCK TENDER OPERATOR 2012
--- OUTSIDE RECORDS SUMMARY | 2019-09-29 02:35 | XMS REPORT | Clinical Summary ---
Author Author Admin, Bethany Ayala [facility] Address Unknown Phone Unavailable Allergies, Adverse Reactions, [...] tablet by mouth daily CITAL OPRAM HYDROBROMIDE 43132093231 Active Checo Conklin MD Active BUPROPION HCL (SMOKING DETER) 150 MG [id number] 1 a day for 1 week then 1 twice a day BUPROPION HCL (SMOKING DETER) 96481095170 No Lo nger Active Checo Conklin MD Active SIMVASTATIN 20 MG TABS 1 po qd SIMVASTATIN 4716609160 4 Active Checo Conklin MD Active CHANTIX STARTING MONTH KARTHIK 0.5 MG X 11 & 1 MG X 42 TAB S 0.5mg daily for 3 days, then 0.5mg BID for 4 days, then 1mg BID VARENICLINE TARTRATE 26639485014 No Longer Active Checo Conklin MD Activ e XANAX 0.5 MG TABS 1 po BID PRN anxiety ALPRAZOLAM 64284156798 Active Checo Conklin MD Active CONCERTA 18 MG CR-TABS 1 po q a.m. METHYLPHENID ATE HCL 07248588342 No Longer Active Checo Conklin MD Active REGLAN 10 MG TAB 1 po TID PRN Nausea METOCLOPRA MIDE HCL 93331868398 Active Checo Conklin MD Active AMBIEN 5 MG TAB 1 po qHS PRN Insomnia ZOLPIDEM TARTRATE 61483236836 Active Checo Conklin MD Active TRAZODONE HCL 100 MG TAB 0.5 to 1 po qHS PRN Insomnia TRAZODONE HCL 93069069836 No Longer Active Checo Conklin MD Acti ve FIORICET 325-50-40 MG TAB 1 tablet by mouth four times daily as needed [id number] 11550671948 No Longer Active Checo Conklin MD Active PHENERGAN CREAM* 25mg applied to wrist q6hr PRN Nausea PHENERGAN CREAM* No Longer Active Checo Conklin MD A ctive LAMISIL 250 MG TAB 1 po qd TERBINAFINE HCL 1457688229 1 Active Checo Conklin MD Active FLONASE 50 MCG/ACT SUSP 1 spray each nostril am and hs FLUTICASONE PROPIONATE 89044996299 No Longer Active Checo Conklin MD Activ e ANTIPYRINE-BENZOCAINE 5.4-1.4 % SOLN 1-2 drops in affected ear BENZOCAINE-ANTIPYRINE 79517089937 No Longer Active Checo Conklin MD Active CEFDINIR 300 MG CAPS 1 po bid CEFDINIR 81147836 120 No Longer Active Checo Conklin MD Active PREDNISONE 20 MG TAB 2 tabs daily for 3 days, 1 t ab daily for 3 days, 1/2 tab daily for 2 days PREDNISONE 77674631552 No Longer Active Aracelis Conklin MD Active AZITHROMYCIN 250 MG TABS 2 po qd x 1 day, then 1 po qd x 4 days AZITHROMYCIN 76977329280 No Longer Active Checo Conklin MD Active PREDNISONE 20 MG TAB 2 tabs daily for 3 days, 1 t ab daily for 3 days, 1/2 tab daily for 2 days PREDNISONE 41993812517 No Longer Active Checo Conklin MD Active ZITHROMAX Z-KARTHIK 250 MG TABS 2 today, then 1 daily for 4 days 201 09/18/28 AZITHROMYCIN 85969495410 No Longer Active Paul Hamlin MD Active FOCALIN XR 10 MG [id number] 1 po q a.m. D EXMETHYLPHENIDATE HCL 55243462244 No Longer Active Paul Hamlin MD Activ e PERCOCET 10-325 MG TABS 1 tablet every 6 hours as needed for pain OXYCODONE-ACETAMINOPHEN 63680446902 No Longer Active Paul Hamlin MD Active LORTAB 5 5-500 MG TABS 1/2 to 1 tablet by mouth flaquito ry 4 hours as needed for pain HYDROCODONE-ACETAMINOPHEN 81847319378 No Longer Active Checo Conklin MD Active FOCALIN XR 15 MG [id number] 1 po q a.m. D EXMETHYLPHENIDATE HCL 05828527870 No Longer Active Checo Conklin MD Activ e ZOFRAN ODT 4 MG TBDP 1 po q6hr PRN Nausea ONDAN SETRON 97397347154 No Longer Active Checo Conklin MD Active PERCOCET 5-325 MG TABS 1 tablet by mouth every 6 hours as needed OXYCODONE-ACETAMINOPHEN 03806892781 No Longer Active Checo Conklin MD Active PYRIDIUM 200 MG TABS take 1 tab po TID prn urinary pain. 0 PHENAZOPYRIDINE HCL 52934444112 No Longer Active Checo Conklin MD Active FLUCONAZOLE 150 MG TABS take 1 tab po qday once 04/06 FLUCONAZOLE 58171498372 No Longer Active Dangelo Rangel MD Acti ve CIPRO 500 MG TAB 1 tablet by mouth twice daily CIPROFLOXACIN HCL 00480197553 No Longer Active Dangelo Rangel MD Active PYRIDIUM 200 MG TABS take 1 tab po TID prn urinary pain. 0 PYRIDIUM 200 MG TABS 7957178 PHENAZOPYRIDINE HCL Inactive PERCOCET 5-325 MG TABS 1 tablet by mouth every 6 hours as needed PERCOCET 5-325 MG TABS 6891935 OXYCODONE-ACETAMINOPHEN I nactive ZOFRAN ODT 4 MG TBDP 1 po q6hr PRN Nausea ZOFRAN ODT 4 MG TBDP 228676 ONDANSETRON Inactive FOCALIN XR 15 MG [id number] 1 po q a.m. F OCALIN XR 15 MG [id number] DEXMETHYLPHENIDATE HCL Inactive LORTAB 5 5-500 MG TABS 1/2 to 1 tablet by mouth flaquito ry 4 hours as needed for pain LORTAB 5 5-500 MG TABS HYDROCODONE-A CETAMINOPHEN Inactive PERCOCET 10-325 MG TABS 1 tablet every 6 hours as needed for pain PERCOCET 10-325 MG TABS 5266639 OXYCODONE-ACETAMINOPHEN Inactive FOCALIN XR 10 MG [id number] 1 po q a.m. F OCALIN XR 10 MG [id number] DEXMETHYLPHENIDATE HCL Inactive CEFDINIR 300 MG CAPS 1 po bid CEFDINIR 300 MG CAPS 20 0346 CEFDINIR Inactive ANTIPYRINE-BENZOCAINE 5.4-1.4 % SOLN 1-2 drops in affected ear ANTIPYRINE-BENZOCAINE 5.4-1.4 % SOLN 589933 BENZOCAINE-ANTIPYRINE I nactive FLONASE 50 MCG/ACT SUSP 1 spray each nostril am and hs FLONASE 50 MCG/ACT SUSP 691117 FLUTICASONE PROPIONATE Inactive PHENERGAN CREAM* 25mg applied to wrist q6hr PRN Nausea PHENERGAN CREAM* Inactive FIORICET 325-50-40 MG TAB 1 tablet by mouth four times daily as needed FIORICET 325-50-40 MG TAB ACETAMINOPHEN-C AFF-BUTALBITAL Inactive TRAZODONE HCL 100 MG TAB 0.5 to 1 po qHS PRN Insomnia TRAZODONE HCL 100 MG TAB 380256 TRAZODONE HCL Inactive CONCERTA 18 MG CR-TABS [...] mouth twice daily CIPRO 500 MG TAB 879131 CIPROFLOXACIN HCL Inactive FLUCONAZOLE 150 MG TABS take 1 tab po qday once 04/06 FLUCONAZOLE 150 MG TABS 245462 FLUCONAZOLE Inactive ZITHROMAX Z-KARTHIK 250 MG TABS 2 today, then 1 daily for 4 days 201 09/18/28 ZITHROMAX Z-KARTHIK 250 MG TABS 2473176 AZITHROMYCIN Inac tive PREDNISONE 20 MG TAB 2 tabs daily for 3 days, 1 t ab daily for 3 days, 1/2 tab daily for 2 days PREDNISONE 20 MG TAB 554667 PREDNISON E Inactive AZITHROMYCIN 250 MG TABS 2 po qd x 1 day, then 1 po qd x 4 days AZITHROMYCIN 250 MG TABS 4746204 AZITHROMYCIN Inactiv e PREDNISONE 20 MG TAB 2 tabs daily for 3 days, 1 t ab daily for 3 days, 1/2 tab daily for 2 days PREDNISONE 20 MG TAB 132903 PREDNISON E Inactive Immunizations Vaccine Administration Date [...] 5.3 % 4.3-6.0 sodium, serum 139 mmol/L 425-227 1830/01/09 potassium, serum 4.3 mmol/L 3.5-5.2 chloride, serum [...] 1.10 mg/dL 0.00-1.00 cholesterol, serum 222 mg/dL 455-645 2986/01/09 triglyceride, serum, fasting 92 mg/dL 30-200 HDL [...] 142-424 Encounters Code Encounter Date Provider Facility CPT-87450 Level 4 Est. Patient 11:29:33 CDT Checo Conklin MD [facility] CPT-07433 Level 3 Est. Patient 17:08:31 CDT Checo Conklin MD [facility] CPT-23580 Level 3 Est. Patient 16:50:42 SQUAD [employer] Checo Conklin MD [facility] CPT-43362 Level 4 Est. Patient 09:26:08 [employer] Checo Conklin MD [facility] CPT-76968 Level 3 Est. Patient 11:37:10 CDT Checo Conklin MD [facility] CPT-57270 Level 4 Est. Patient 14:07:38 CDT Checo Conklin MD [facility] CPT-23943 Level 3 Est. Patient 09:54:41 CDT Checo Conklin MD [facility] CPT-65493 Level 3 Est. Patient 11:10:54 CDT Paul Hamlin MD [facility] CPT-41518 Level 3 Est. Patient 14:16:56 [employer] Checo Conklin MD [facility] CPT-95015 Level 3 Est. Patient 11:04:11 [employer] Checo Conklin MD [facility] CPT-19531 Level 3 Est. Patient 17:09:26 CDT Dangelo arroyo MD [facility] CPT-50502 Level 3 Est. Patient 16:54:37 CDT Checo Conklin MD [facility] Procedures Code Procedure Name Date Entry Date Standard Desc ription CPT-OV Office Visit 11:31:28 CDT CPT-80064 Tubersol 09:39:29 CDT CPT-J2550 Phenergan 25 mg (Promethazine) 13:59:02 SQUAD BOSS CPT-J1885 Toradol 60 mg (Ketorolac) 13:59:02 SQUAD [employer]OSS 2012
--- OUTSIDE RECORDS SUMMARY | 2019-09-29 02:35 | XMS REPORT | Clinical Summary ---
Author Author Admin, Bethany Ayala [facility] Address Unknown Phone Allergies, Adverse Reactions, [...] TABS 1 po BID PRN anxiety ALPRAZOLAM 98023199669 Active Checo Conklin MD Active CHANTIX STARTING MONTH KARTHIK 0.5 MG X 11 & 1 MG X 42 TAB S 0.5mg daily for 3 days, then 0.5mg BID for 4 days, then 1mg BID VARENICL INE TARTRATE 12674067955 Active Checo Conklin MD Active CONCERTA 18 MG CR-TABS 1 po q a.m. METHYLPHENID ATE HCL 66067627282 No Longer Active Checo Conklin MD Active REGLAN 10 MG TAB 1 po TID PRN Nausea METOCLOPRA MIDE HCL 61021228391 Active Checo Conklin MD Active AMBIEN 5 MG TAB 1 po qHS PRN Insomnia ZOLPIDEM TARTRATE 36503604624 Active Checo Conklin MD Active TRAZODONE HCL 100 MG TAB 0.5 to 1 po qHS PRN Insomnia TRAZODONE HCL 67487584737 No Longer Active Checo Conklin MD Acti ve FIORICET 325-50-40 MG TAB 1 tablet by mouth four times daily as needed [id number] 11015376330 No Longer Active Checo Conklin MD Active PHENERGAN CREAM* 25mg applied to wrist q6hr PRN Nausea PHENERGAN CREAM* No Longer Active Checo Conklin MD A ctive SIMVASTATIN 20 MG TABS 1 tab daily at bedtime S IMVASTATIN 51827048534 Active Checo Conklin MD Active LAMISIL 250 MG TAB 1 po qd TERBINAFINE HCL 7368487611 1 Active Checo Conklin MD Active FLONASE 50 MCG/ACT SUSP 1 spray each nostril am and hs FLUTICASONE PROPIONATE 22612829284 No Longer Active Checo Conklin MD Activ e ANTIPYRINE-BENZOCAINE 5.4-1.4 % SOLN 1-2 drops in affected ear BENZOCAINE-ANTIPYRINE 45111245900 No Longer Active Checo Conklin MD Active CEFDINIR 300 MG CAPS 1 po bid CEFDINIR 79204281 120 No Longer Active Checo Conklin MD Active PREDNISONE 20 MG TAB 2 tabs daily for 3 days, 1 t ab daily for 3 days, 1/2 tab daily for 2 days PREDNISONE 65497933163 No Longer Active Aracelis Conklin MD Active AZITHROMYCIN 250 MG TABS 2 po qd x 1 day, then 1 po qd x 4 days AZITHROMYCIN 23016400158 No Longer Active Checo Conklin MD Active PREDNISONE 20 MG TAB 2 tabs daily for 3 days, 1 t ab daily for 3 days, 1/2 tab daily for 2 days PREDNISONE 41507249205 No Longer Active Checo Conklin MD Active ZITHROMAX Z-KARTHIK 250 MG TABS 2 today, then 1 daily for 4 days 201 09/18/28 AZITHROMYCIN 20250702333 No Longer Active Paul Hamlin MD Active FOCALIN XR 10 MG [id number] 1 po q a.m. D EXMETHYLPHENIDATE HCL 77024769354 No Longer Active Paul Hamlin MD Activ e PERCOCET 10-325 MG TABS 1 tablet every 6 hours as needed for pain OXYCODONE-ACETAMINOPHEN 49616522667 No Longer Active Paul Hamlin MD Active LORTAB 5 5-500 MG TABS 1/2 to 1 tablet by mouth flaquito ry 4 hours as needed for pain HYDROCODONE-ACETAMINOPHEN 27845381873 No Longer Active Checo Conklin MD Active FOCALIN XR 15 MG [id number] 1 po q a.m. D EXMETHYLPHENIDATE HCL 27501391085 No Longer Active Checo Conklin MD Activ e ZOFRAN ODT 4 MG TBDP 1 po q6hr PRN Nausea ONDAN SETRON 71003246957 No Longer Active Checo Conklin MD Active PERCOCET 5-325 MG TABS 1 tablet by mouth every 6 hours as needed OXYCODONE-ACETAMINOPHEN 58309600319 No Longer Active Checo Conklin MD Active PYRIDIUM 200 MG TABS take 1 tab po TID prn urinary pain. 0 PHENAZOPYRIDINE HCL 32895039645 No Longer Active Checo Conklin MD Active FLUCONAZOLE 150 MG TABS take 1 tab po qday once 04/06 FLUCONAZOLE 88512609983 No Longer Active Dangelo Rangel MD Acti ve CIPRO 500 MG TAB 1 tablet by mouth twice daily CIPROFLOXACIN HCL 78610885488 No Longer Active Dangelo Rangel MD Active PYRIDIUM 200 MG TABS take 1 tab po TID prn urinary pain. 0 PYRIDIUM 200 MG TABS 6754304 PHENAZOPYRIDINE HCL Inactive PERCOCET 5-325 MG TABS 1 tablet by mouth every 6 hours as needed PERCOCET 5-325 MG TABS 7795903 OXYCODONE-ACETAMINOPHEN I nactive ZOFRAN ODT 4 MG TBDP 1 po q6hr PRN Nausea ZOFRAN ODT 4 MG TBDP 947641 ONDANSETRON Inactive FOCALIN XR 15 MG [id number] 1 po q a.m. F OCALIN XR 15 MG [id number] DEXMETHYLPHENIDATE HCL Inactive LORTAB 5 5-500 MG TABS 1/2 to 1 tablet by mouth flaquito ry 4 hours as needed for pain LORTAB 5 5-500 MG TABS HYDROCODONE-A CETAMINOPHEN Inactive PERCOCET 10-325 MG TABS 1 tablet every 6 hours as needed for pain PERCOCET 10-325 MG TABS 4611980 OXYCODONE-ACETAMINOPHEN Inactive FOCALIN XR 10 MG [id number] 1 po q a.m. F OCALIN XR 10 MG [id number]-KSL DEXMETHYLPHENIDATE HCL Inactive CEFDINIR 300 MG CAPS 1 po bid CEFDINIR 300 MG CAPS 20 0346 CEFDINIR Inactive ANTIPYRINE-BENZOCAINE 5.4-1.4 % SOLN 1-2 drops in affected ear ANTIPYRINE-BENZOCAINE 5.4-1.4 % SOLN 548164 BENZOCAINE-ANTIPYRINE I nactive FLONASE 50 MCG/ACT SUSP 1 spray each nostril am and hs FLONASE 50 MCG/ACT SUSP 677786 FLUTICASONE PROPIONATE Inactive PHENERGAN CREAM* 25mg applied to wrist q6hr PRN Nausea PHENERGAN CREAM* Inactive FIORICET 325-50-40 MG TAB 1 tablet by mouth four times daily as needed FIORICET 325-50-40 MG TAB ACETAMINOPHEN-C AFF-BUTALBITAL Inactive TRAZODONE HCL 100 MG TAB 0.5 to 1 po qHS PRN Insomnia TRAZODONE HCL 100 MG TAB 294616 TRAZODONE HCL Inactive CONCERTA 18 MG CR-TABS 1 po q a.m. CONCERTA 18 MG CR-TABS METHYLPHENIDATE HCL Inactive CIPRO 500 MG TAB 1 tablet by mouth twice daily CIPRO 500 MG TAB 164142 CIPROFLOXACIN HCL Inactive FLUCONAZOLE 150 MG TABS take 1 tab po qday once 04/06 FLUCONAZOLE 150 MG TABS 843238 FLUCONAZOLE Inactive ZITHROMAX Z-KARTHIK 250 MG TABS 2 today, then 1 daily for 4 days 201 09/18/28 ZITHROMAX Z-KARTHIK 250 MG TABS 1965965 AZITHROMYCIN Inac tive PREDNISONE 20 MG TAB 2 tabs daily for 3 days, 1 t ab daily for 3 days, 1/2 tab daily for 2 days PREDNISONE 20 MG TAB 870360 PREDNISON E Inactive AZITHROMYCIN 250 MG TABS 2 po qd x 1 day, then 1 po qd x 4 days AZITHROMYCIN 250 MG TABS 1052114 AZITHROMYCIN Inactiv e PREDNISONE 20 MG TAB 2 tabs daily for 3 days, 1 t ab daily for 3 days, 1/2 tab daily for 2 days PREDNISONE 20 MG TAB 785507 PREDNISON E Inactive Vital Signs Date Name [...] Panel - Chemistry sodium, serum 139 mmol/L 513-373 9894/01/09 potassium, serum 4.3 mmol/L 3.5-5.2 chloride, serum [...] 1.10 mg/dL 0.00-1.00 cholesterol, serum 222 mg/dL 883-539 9840/01/09 triglyceride, serum, fasting 92 mg/dL 30-200 HDL [...] 142-424 Encounters Code Encounter Date Provider Facility CPT-21247 Level 3 Est. Patient 17:08:31 CDT Checo Conklin MD [facility] CPT-20819 Level 3 Est. Patient 16:50:42 [employer] Checo Conklin MD [facility] CPT-84292 Level 4 Est. 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 CPT-64488 Level 3 Est. Patient 11:37:10 CDT Checo Conklin MD [facility] CPT-58454 Level 4 Est. Patient 14:07:38 CDT Checo Conklin MD [facility] CPT-43442 Level 3 Est. Patient 09:54:41 CDT Checo Conklin MD [facility] CPT-31741 Level 3 Est. Patient 11:10:54 CDT Paul Hamlin MD [facility] CPT-52711 Level 3 Est. Patient 14:16:56 [employer] Checo Conklin MD [facility] CPT-21949 Level 3 Est. Patient 11:04:11 [employer] Checo Conklin MD [facility] CPT-10275 Level 3 Est. Patient 17:09:26 CDT Dangelo arroyo MD [facility] CPT-50719 Level 3 Est. 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
--- OUTSIDE RECORDS SUMMARY | 2019-09-29 02:35 | XMS REPORT | Clinical Summary ---
Author Author Admin, Bethany Ayala [facility] Address Unknown Phone Allergies, Adverse Reactions, Alerts [...] richey MD Lump or mass in breast FH [...] mass, right ICD-611.72 Inactive Checo Conklin MD Medication List Medication Instructions Start Date Stop Date Generic Name ND Status Provider Patient Instruction CELEXA 20 MG TABS 1 tablet by mouth daily CITAL OPRAM HYDROBROMIDE 00980080464 Active Checo Conklin MD Active BUPROPION HCL (SMOKING DETER) 150 MG [id number] 1 a day for 1 week then 1 twice a day BUPROPION HCL (SMOKING DETER) 27216442312 No Lo nger Active Checo Conklin MD Active SIMVASTATIN 20 MG TABS 1 po qd SIMVASTATIN 2716640206 4 Active Checo Conklin MD Active CHANTIX STARTING MONTH KARTHIK 0.5 MG X 11 & 1 MG X 42 TAB S 0.5mg daily for 3 days, then 0.5mg BID for 4 days, then 1mg BID VARENICLINE TARTRATE 85778267757 No Longer Active Checo Conklin MD Activ e XANAX 0.5 MG TABS 1 po BID PRN anxiety ALPRAZOLAM 75245517078 Active Checo Conklin MD Active CONCERTA 18 MG CR-TABS 1 po q a.m. METHYLPHENID ATE HCL 04925848610 No Longer Active Checo Conklin MD Active REGLAN 10 MG TAB 1 po TID PRN Nausea METOCLOPRA MIDE HCL 10181098306 Active Checo Conklin MD Active AMBIEN 5 MG TAB 1 po qHS PRN Insomnia ZOLPIDEM TARTRATE 42006383112 Active Paul Hamlin MD Active TRAZODONE HCL 100 MG TAB 0.5 to 1 po qHS PRN Insomnia TRAZODONE HCL 85113665963 No Longer Active Checo Conklin MD Acti ve FIORICET 325-50-40 MG TAB 1 tablet by mouth four times daily as needed [id number] 06265268287 No Longer Active Checo Conklin MD Active PHENERGAN CREAM* 25mg applied to wrist q6hr PRN Nausea PHENERGAN CREAM* No Longer Active Checo Conklin MD A ctive LAMISIL 250 MG TAB 1 po qd TERBINAFINE HCL 5723070248 1 Active Checo Conklin MD Active FLONASE 50 MCG/ACT SUSP 1 spray each nostril am and hs FLUTICASONE PROPIONATE 46907348928 No Longer Active Checo Conklin MD Activ e ANTIPYRINE-BENZOCAINE 5.4-1.4 % SOLN 1-2 drops in affected ear BENZOCAINE-ANTIPYRINE 30100087550 No Longer Active Checo Conklin MD Active CEFDINIR 300 MG CAPS 1 po bid CEFDINIR 02795458 120 No Longer Active Checo Conklin MD Active PREDNISONE 20 MG TAB 2 tabs daily for 3 days, 1 t ab daily for 3 days, 1/2 tab daily for 2 days PREDNISONE 13537567611 No Longer Active Aracelis Conklin MD Active AZITHROMYCIN 250 MG TABS 2 po qd x 1 day, then 1 po qd x 4 days AZITHROMYCIN 36353018599 No Longer Active Checo Conklin MD Active PREDNISONE 20 MG TAB 2 tabs daily for 3 days, 1 t ab daily for 3 days, 1/2 tab daily for 2 days PREDNISONE 73095104328 No Longer Active Checo Conklin MD Active ZITHROMAX Z-KARTHIK 250 MG TABS 2 today, then 1 daily for 4 days 201 09/18/28 AZITHROMYCIN 39916477892 No Longer Active Paul Hamlin MD Active FOCALIN XR 10 MG [id number] 1 po q a.m. D EXMETHYLPHENIDATE HCL 45917654029 No Longer Active Paul Hamlin MD Activ e PERCOCET 10-325 MG TABS 1 tablet every 6 hours as needed for pain OXYCODONE-ACETAMINOPHEN 03702603343 No Longer Active Paul Hamlin MD Active LORTAB 5 5-500 MG TABS 1/2 to 1 tablet by mouth flaquito ry 4 hours as needed for pain HYDROCODONE-ACETAMINOPHEN 23519031582 No Longer Active Checo Conklin MD Active FOCALIN XR 15 MG [id number] 1 po q a.m. D EXMETHYLPHENIDATE HCL 61561138570 No Longer Active Checo Conklin MD Activ e ZOFRAN ODT 4 MG TBDP 1 po q6hr PRN Nausea ONDAN SETRON 06337085750 No Longer Active Checo Conklin MD Active PERCOCET 5-325 MG TABS 1 tablet by mouth every 6 hours as needed OXYCODONE-ACETAMINOPHEN 92887209642 No Longer Active Checo Conklin MD Active PYRIDIUM 200 MG TABS take 1 tab po TID prn urinary pain. 0 PHENAZOPYRIDINE HCL 48471717117 No Longer Active Checo Conklin MD Active FLUCONAZOLE 150 MG TABS take 1 tab po qday once 04/06 FLUCONAZOLE 22537140298 No Longer Active Dangelo Rangel MD Acti ve CIPRO 500 MG TAB 1 tablet by mouth twice daily CIPROFLOXACIN HCL 89491867648 No Longer Active Dangelo Rangel MD Active PYRIDIUM 200 MG TABS take 1 tab po TID prn urinary pain. 0 PYRIDIUM 200 MG TABS 3798661 PHENAZOPYRIDINE HCL Inactive PERCOCET 5-325 MG TABS 1 tablet by mouth every 6 hours as needed PERCOCET 5-325 MG TABS 3471344 OXYCODONE-ACETAMINOPHEN I nactive ZOFRAN ODT 4 MG TBDP 1 po q6hr PRN Nausea ZOFRAN ODT 4 MG TBDP 282260 ONDANSETRON Inactive FOCALIN XR 15 MG [id number] 1 po q a.m. F OCALIN XR 15 MG [id number] DEXMETHYLPHENIDATE HCL Inactive LORTAB 5 5-500 MG TABS 1/2 to 1 tablet by mouth flaquito ry 4 hours as needed for pain LORTAB 5 5-500 MG TABS HYDROCODONE-A CETAMINOPHEN Inactive PERCOCET 10-325 MG TABS 1 tablet every 6 hours as needed for pain PERCOCET 10-325 MG TABS 7025683 OXYCODONE-ACETAMINOPHEN Inactive FOCALIN XR 10 MG [id number] 1 po q a.m. F OCALIN XR 10 MG [id number] DEXMETHYLPHENIDATE HCL Inactive CEFDINIR 300 MG CAPS 1 po bid CEFDINIR 300 MG CAPS 20 0346 CEFDINIR Inactive ANTIPYRINE-BENZOCAINE 5.4-1.4 % SOLN 1-2 drops in affected ear ANTIPYRINE-BENZOCAINE 5.4-1.4 % SOLN 668028 BENZOCAINE-ANTIPYRINE I nactive FLONASE 50 MCG/ACT SUSP 1 spray each nostril am and hs FLONASE 50 MCG/ACT SUSP 528540 FLUTICASONE PROPIONATE Inactive PHENERGAN CREAM* 25mg applied to wrist q6hr PRN Nausea PHENERGAN CREAM* Inactive FIORICET 325-50-40 MG TAB 1 tablet by mouth four times daily as needed FIORICET 325-50-40 MG TAB ACETAMINOPHEN-C AFF-BUTALBITAL Inactive TRAZODONE HCL 100 MG TAB 0.5 to 1 po qHS PRN Insomnia TRAZODONE HCL 100 MG TAB 400219 TRAZODONE HCL Inactive CONCERTA 18 MG CR-TABS [...] mouth twice daily CIPRO 500 MG TAB 817464 CIPROFLOXACIN HCL Inactive FLUCONAZOLE 150 MG TABS take 1 tab po qday once 04/06 FLUCONAZOLE 150 MG TABS 136834 FLUCONAZOLE Inactive ZITHROMAX Z-KARTHIK 250 MG TABS 2 today, then 1 daily for 4 days 201 09/18/28 ZITHROMAX Z-KARTHIK 250 MG TABS 4652485 AZITHROMYCIN Inac tive PREDNISONE 20 MG TAB 2 tabs daily for 3 days, 1 t ab daily for 3 days, 1/2 tab daily for 2 days PREDNISONE 20 MG TAB 771642 PREDNISON E Inactive AZITHROMYCIN 250 MG TABS 2 po qd x 1 day, then 1 po qd x 4 days AZITHROMYCIN 250 MG TABS 6080813 AZITHROMYCIN Inactiv e PREDNISONE 20 MG TAB 2 tabs daily for 3 days, 1 t ab daily for 3 days, 1/2 tab daily for 2 days PREDNISONE 20 MG TAB 474803 PREDNISON E Inactive Immunizations Vaccine Administration Date Value Standard Michael cription TB-PPD (tuberculin purified protein derivative), intra dermal administration Tubersol Vital Signs Date Name Value Unit Range Description blood pressure, diastolic - 8462-4 83 mm[Hg] BP matehw blood pressure, systolic - 8480-6 115 mm[Hg] [...] Panel - Chemistry sodium, serum 139 mmol/L 280-793 6998/01/09 potassium, serum 4.3 mmol/L 3.5-5.2 chloride, serum [...] 1.10 mg/dL 0.00-1.00 cholesterol, serum 222 mg/dL 102-039 3874/01/09 triglyceride, serum, fasting 92 mg/dL 30-200 HDL cholesterol, serum 41 mg/dL 32-96 LDL cholesterol, serum 163 mg/dL 0-130 hemoglobin A1C, blood, as % of total hemoglobin 5.3 % 4.3-6.0 Lab Report: HGBA1C, CBC W/DIFF, Comp. Me tabolic Panel, Lipid Panel - Hematology erythrocyte (RBC) count 4.35 10^6/MM^3 10*6/mm3 4.04-5.4 8 hemoglobin, blood 14.5 g/dL 12.0-16.0 hematocrit, blood 43.3 % 36.0-46.0 mean corpuscular volume, RBC 100 fL 80-97 mean corpuscular hemoglobin, RBC 33.2 pg 27. 0-31.2 mean corpuscular hemoglobin concentration, RBC 33.4 G/DL % 31.8-35.4 red blood cell distribution width 13.1 % 11 .6-14.8 platelet count 179 10^3/MM^3 10*3/mm3 941-345 6390/01/09 lymphocytes as percent of blood leukocytes 37.5 % 20.5-51.1 monocytes as percent of blood leukocytes 8.7 % 1.7-9.3 neutrophils as percent of blood leukocytes 51.6 % 42.2-75.2 leukocyte count, blood 5.5 10^3/MM^3 10*3/mm3 4.6-10.2 Encounters Code Encounter Date Provider Facility CPT-50379 Level 4 Est. Patient 11:29:33 CDT Checo Conklin MD [facility] CPT-80785 Level 3 Est. Patient 17:08:31 CDT Checo Conklin MD [facility] CPT-70047 Level 3 Est. Patient 16:50:42 ACCOUNTING GENERALIST Checo Conklin MD [facility] CPT-88741 Level 4 Est. Patient 09:26:08 ACCOUNTING GENERALIST Checo Conklin MD [facility] CPT-29059 Level 3 Est. Patient 11:37:10 CDT Checo Conklin MD [facility] CPT-76161 Level 4 Est. Patient 14:07:38 CDT Checo Conklin MD [facility] CPT-27392 Level 3 Est. Patient 09:54:41 CDT Checo Conklin MD [facility] CPT-60418 Level 3 Est. Patient 11:10:54 CDT Paul Hamlin MD [facility] CPT-29422 Level 3 Est. Patient 14:16:56 ACCOUNTING GENERALIST Checo Conklin MD [facility] CPT-59859 Level 3 Est. Patient 11:04:11 ACCOUNTING GENERALIST Checo Conklin MD [facility] CPT-68064 Level 3 Est. Patient 17:09:26 CDT Dangelo arroyo MD [facility] CPT-77748 Level 3 Est. Patient 16:54:37 CDT Checo Conklin MD [facility] Procedures Code Procedure Name Date Entry Date Standard Desc ription CPT-01481 Tubersol 09:39:29 CDT CPT-J2550 Phenergan 25 mg (Promethazine) 13:59:02 ACCOUNTING GENERALIST CPT-J1885 Toradol 60 mg (Ketorolac) 13:59:02 ACCOUNTING GENERALIST 2012
--- OUTSIDE RECORDS SUMMARY | 2019-09-29 02:35 | XMS REPORT | Clinical Summary ---
Author Author Admin, Bethany Ayala [facility] Address Unknown Phone Unavailable Allergies, Adverse Reactions, [...] 1 po q 6hr PRN Pain HYDROCODONE-ACETAMINOPHEN 22524122690 Active Dangelo Rangel MD Active PHENAZOPYRIDINE HCL 200 MG TABS take 1 tab po TID for bladder pain PHENAZOPYRIDINE HCL 71826939542 Active Dangelo Rangel MD A ctive CIPRO 500 MG TAB 1 tablet by mouth twice daily CIPROFLOXACIN HCL 46105747032 No Longer Active Dangelo Rangel MD Active HYDROCODONE-ACETAMINOPHEN 5-325 MG TABS 1/2 to 1 po q 4 hour s prn cough HYDROCODONE-ACETAMINOPHEN 16343693541 No Longer Activ e Dangelo Rangel MD Active BACTRIM DS 800-160 MG TABS 1 po BID x 7 days 0 SULFAMETHOXAZOLE-TRIMETHOPRIM 99447454722 No Longer Active Checo Conklin MD Active PREDNISONE 20 MG TAB 2 tabs daily for 3 days, 1 t ab daily for 3 days, 1/2 tab daily for 2 days PREDNISONE 00068577784 No Longer Active Checo Conklin MD Active TRIAMCINOLONE ACETONIDE 0.1 % OINT Apply to affected a reas TID for up to 2 weeks TRIAMCINOLONE ACETONIDE 03179420548 No Longer A ctive Checo Conklin MD Active CEFDINIR 300 MG CAPS by mouth twice a day CEFDI JAZZY 29969996301 No Longer Active Dangelo Rangel MD Active CELEXA 20 MG TABS 1 tablet by mouth daily CITAL OPRAM HYDROBROMIDE 28757759119 Active Checo Conklin MD Active BUPROPION HCL (SMOKING DETER) 150 MG [id number] 1 a day for 1 week then 1 twice a day BUPROPION HCL (SMOKING DETER) 66022937673 No Lo nger Active Checo Conklin MD Active SIMVASTATIN 20 MG TABS 1 po qd SIMVASTATIN 0950074711 4 Active Checo Conklin MD Active CHANTIX STARTING MONTH KARTHIK 0.5 MG X 11 & 1 MG X 42 TAB S 0.5mg daily for 3 days, then 0.5mg BID for 4 days, then 1mg BID VARENICLINE TARTRATE 90176058465 No Longer Active Checo Conklin MD Activ e XANAX 0.5 MG TABS 1 po BID PRN anxiety ALPRAZOLAM 66107351572 Active Efren Medel APRN Active CONCERTA 18 MG CR-TABS 1 po q a.m. METHYLPHENID ATE HCL 31216747346 No Longer Active Checo Conklin MD Active REGLAN 10 MG TAB 1 po TID PRN Nausea METOCLOPRA MIDE HCL 11340592232 Active Checo Conklin MD Active AMBIEN 5 MG TAB 1 po qHS PRN Insomnia ZOLPIDEM TARTRATE 04426498831 Active Efren Medel APRN Active TRAZODONE HCL 100 MG TAB 0.5 to 1 po qHS PRN Insomnia TRAZODONE HCL 25542637742 No Longer Active Checo Conklin MD Acti ve FIORICET 325-50-40 MG TAB 1 tablet by mouth four times daily as needed [id number] 39239279335 No Longer Active Checo Conklin MD Active PHENERGAN CREAM* 25mg applied to wrist q6hr PRN Nausea PHENERGAN CREAM* No Longer Active Checo Conklin MD A ctive LAMISIL 250 MG TAB 1 po qd TERBINAFINE HCL 3592738423 1 Active Checo Conklin MD Active FLONASE 50 MCG/ACT SUSP 1 spray each nostril am and hs FLUTICASONE PROPIONATE 85477235544 No Longer Active Checo Conklin MD Activ e ANTIPYRINE-BENZOCAINE 5.4-1.4 % SOLN 1-2 drops in affected ear BENZOCAINE-ANTIPYRINE 01068035532 No Longer Active Checo Conklin MD Active CEFDINIR 300 MG CAPS 1 po bid CEFDINIR 40973749 120 No Longer Active Checo Conklin MD Active PREDNISONE 20 MG TAB 2 tabs daily for 3 days, 1 t ab daily for 3 days, 1/2 tab daily for 2 days PREDNISONE 33032947805 No Longer Active M greg Conklin MD Active AZITHROMYCIN 250 MG TABS 2 po qd x 1 day, then 1 po qd x 4 days AZITHROMYCIN 78201613286 No Longer Active Checo Conklin MD Active PREDNISONE 20 MG TAB 2 tabs daily for 3 days, 1 t ab daily for 3 days, 1/2 tab daily for 2 days PREDNISONE 21183987195 No Longer Active Checo Conklin MD Active ZITHROMAX Z-KARTHIK 250 MG TABS 2 today, then 1 daily for 4 days 201 09/18/28 AZITHROMYCIN 73036320930 No Longer Active Paul Hamlin MD Active FOCALIN XR 10 MG [id number] 1 po q a.m. D EXMETHYLPHENIDATE HCL 97411836556 No Longer Active Paul Hamlin MD Activ e PERCOCET 10-325 MG TABS 1 tablet every 6 hours as needed for pain OXYCODONE-ACETAMINOPHEN 00364932989 No Longer Active Paul Hamlin MD Active LORTAB 5 5-500 MG TABS 1/2 to 1 tablet by mouth flaquito ry 4 hours as needed for pain HYDROCODONE-ACETAMINOPHEN 71504969228 No Longer Active Checo Conklin MD Active FOCALIN XR 15 MG [id number] 1 po q a.m. D EXMETHYLPHENIDATE HCL 49071278088 No Longer Active Checo Conklin MD Activ e ZOFRAN ODT 4 MG TBDP 1 po q6hr PRN Nausea ONDAN SETRON 78983011042 No Longer Active Checo Conklin MD Active PERCOCET 5-325 MG TABS 1 tablet by mouth every 6 hours as needed OXYCODONE-ACETAMINOPHEN 79836806560 No Longer Active Checo Conklin MD Active PYRIDIUM 200 MG TABS take 1 tab po TID prn urinary pain. 0 PHENAZOPYRIDINE HCL 42501388186 No Longer Active Checo Conklin MD Active FLUCONAZOLE 150 MG TABS take 1 tab po qday once 04/06 FLUCONAZOLE 99157622552 No Longer Active Dangelo Rangel MD Acti ve CIPRO 500 MG TAB 1 tablet by mouth twice daily CIPROFLOXACIN HCL 76051983114 No Longer Active Dangelo Rangel MD Active PYRIDIUM 200 MG TABS take 1 tab po TID prn urinary pain. 0 PYRIDIUM 200 MG TABS 5819669 PHENAZOPYRIDINE HCL Inactive PERCOCET 5-325 MG TABS 1 tablet by mouth every 6 hours as needed PERCOCET 5-325 MG TABS 9298968 OXYCODONE-ACETAMINOPHEN I nactive ZOFRAN ODT 4 MG TBDP 1 po q6hr PRN Nausea ZOFRAN ODT 4 MG TBDP 720129 ONDANSETRON Inactive FOCALIN XR 15 MG [id number] 1 po q a.m. F OCALIN XR 15 MG [id number] DEXMETHYLPHENIDATE HCL Inactive LORTAB 5 5-500 MG TABS 1/2 to 1 tablet by mouth flaquito ry 4 hours as needed for pain LORTAB 5 5-500 MG TABS HYDROCODONE-A CETAMINOPHEN Inactive PERCOCET 10-325 MG TABS 1 tablet every 6 hours as needed for pain PERCOCET 10-325 MG TABS 6165873 OXYCODONE-ACETAMINOPHEN Inactive FOCALIN XR 10 MG [id number] 1 po q a.m. F OCALIN XR 10 MG [id number] DEXMETHYLPHENIDATE HCL Inactive CEFDINIR 300 MG CAPS 1 po bid CEFDINIR 300 MG CAPS 20 0346 CEFDINIR Inactive ANTIPYRINE-BENZOCAINE 5.4-1.4 % SOLN 1-2 drops in affected ear ANTIPYRINE-BENZOCAINE 5.4-1.4 % SOLN 139285 BENZOCAINE-ANTIPYRINE I nactive FLONASE 50 MCG/ACT SUSP 1 spray each nostril am and hs FLONASE 50 MCG/ACT SUSP 237713 FLUTICASONE PROPIONATE Inactive PHENERGAN CREAM* 25mg applied to wrist q6hr PRN Nausea PHENERGAN CREAM* Inactive FIORICET 325-50-40 MG TAB 1 tablet by mouth four times daily as needed FIORICET 325-50-40 MG TAB ACETAMINOPHEN-C AFF-BUTALBITAL Inactive TRAZODONE HCL 100 MG TAB 0.5 to 1 po qHS PRN Insomnia TRAZODONE HCL 100 MG TAB 111276 TRAZODONE HCL Inactive CONCERTA 18 MG CR-TABS [...] s prn cough HYDROCODONE-ACETAMINOPHEN 5-325 MG TABS 798935 HYDROCODONE-ACETAMINOPHEN Inactive CIPRO 500 MG TAB 1 tablet by mouth twice daily CIPRO 500 MG TAB 043682 CIPROFLOXACIN HCL Inactive FLUCONAZOLE 150 MG TABS take 1 tab po qday once 04/06 FLUCONAZOLE 150 MG TABS 711415 FLUCONAZOLE Inactive ZITHROMAX Z-KARTHIK 250 MG TABS 2 today, then 1 daily for 4 days 201 09/18/28 ZITHROMAX Z-KARTHIK 250 MG TABS 9380329 AZITHROMYCIN Inac tive PREDNISONE 20 MG TAB 2 tabs daily for 3 days, 1 t ab daily for 3 days, 1/2 tab daily for 2 days PREDNISONE 20 MG TAB 301291 PREDNISON E Inactive AZITHROMYCIN 250 MG TABS 2 po qd x 1 day, then 1 po qd x 4 days AZITHROMYCIN 250 MG TABS 4393343 AZITHROMYCIN Inactiv e PREDNISONE 20 MG TAB 2 tabs daily for 3 days, 1 t ab daily for 3 days, 1/2 tab daily for 2 days PREDNISONE 20 MG TAB 638400 PREDNISON E Inactive CEFDINIR 300 MG CAPS by mouth twice a day CEFDINIR 300 MG CAPS 992668 CEFDINIR Inactive TRIAMCINOLONE ACETONIDE 0.1 % OINT Apply to affected a reas TID for up to 2 weeks TRIAMCINOLONE ACETONIDE 0.1 % OINT 489505 6 TRIAMCINOLONE ACETONIDE Inactive PREDNISONE 20 MG TAB 2 tabs daily for 3 days, 1 t ab daily for 3 days, 1/2 tab daily for 2 days PREDNISONE 20 MG TAB 170453 PREDNISON E Inactive BACTRIM DS 800-160 MG TABS 1 po BID x 7 days 0 BACTRIM DS 800-160 MG TABS SULFAMETHOXAZOLE-TRIMETHOPRIM Inactive CIPRO 500 MG TAB 1 tablet by mouth twice daily CIPRO 500 MG TAB 306621 CIPROFLOXACIN HCL Inactive Immunizations Vaccine Administration Date [...] Panel - Chemistry sodium, serum 139 mmol/L 733-373 7638/10/24 potassium, serum 4.1 mmol/L 3.5-5.2 chloride, serum [...] 0.80 mg/dL 0.00-1.00 cholesterol, serum 147 mg/dL 525-094 0725/10/24 triglyceride, serum, fasting 112 mg/dL 30-200 HDL cholesterol, serum 40 mg/dL 32-96 LDL cholesterol, serum 85 mg/dL 0-130 Lab Report: HGBA1C, CBC W/DIFF, Comp. Me tabolic Panel, Lipid Panel - Chemistry sodium, serum 139 mmol/L 062-408 0459/01/09 potassium, serum 4.3 mmol/L 3.5-5.2 chloride, serum [...] 1.10 mg/dL 0.00-1.00 cholesterol, serum 222 mg/dL 575-131 9104/01/09 triglyceride, serum, fasting 92 mg/dL 30-200 HDL [...] Clear Encounters Code Encounter Date Provider Facility CPT-45929 Level 3 Est. Patient 12:29:32 CDT Dangelo arroyo MD [facility] CPT-23472 Level 3 Est. Patient 16:53:02 CDT Checo Conklin MD [facility] CPT-02354 Level 3 Est. Patient 16:37:13 CDT Checo Conklin MD [facility] CPT-97143 Level 3 Est. Patient 16:16:59 CDT Paul Hamlin MD [facility] CPT-91929 Level 3 Est. Patient 14:20:13 CDT Dangelo arroyo MD [facility] CPT-74993 Level 4 Est. Patient 11:29:33 CDT Checo Conklin MD [facility] CPT-67653 Level 3 Est. Patient 17:08:31 CDT Checo Conklin MD [facility] CPT-94967 Level 3 Est. Patient 16:50:42 AUTOMATIC WHEEL LINE OPERATOR Checo Conklin MD [facility] CPT-10607 Level 4 Est. Patient 09:26:08 AUTOMATIC WHEEL LINE OPERATOR Checo Conklin MD [facility] CPT-34353 Level 3 Est. Patient 11:37:10 CDT Checo Conklin MD [facility] CPT-41223 Level 4 Est. Patient 14:07:38 CDT Checo Conklin MD [facility] CPT-68431 Level 3 Est. Patient 09:54:41 CDT Checo Conklin MD [facility] CPT-39962 Level 3 Est. Patient 11:10:54 CDT Paul Hamlin MD [facility] CPT-97985 Level 3 Est. Patient 14:16:56 AUTOMATIC WHEEL LINE OPERATOR Checo Conklin MD [facility] CPT-28317 Level 3 Est. Patient 11:04:11 AUTOMATIC WHEEL LINE OPERATOR Checo Conklin MD [facility] CPT-21817 Level 3 Est. Patient 17:09:26 CDT Dangelo arroyo MD [facility] CPT-96447 Level 3 Est. Patient 16:54:37 CDT Checo Conklin MD [facility] Procedures Code Procedure Name Date Entry Date Standard Desc ription CPT-OV Office Visit 11:31:28 CDT CPT-16068 Tubersol 09:39:29 CDT CPT-J2550 Phenergan 25 mg (Promethazine) 13:59:02 AUTOMATIC WHEEL LINE OPERATOR CPT-J1885 Toradol 60 mg (Ketorolac) 13:59:02 AUTOMATIC WHEEL LINE OPERATOR 2012
--- OUTSIDE RECORDS SUMMARY | 2019-09-29 02:35 | XMS REPORT | Clinical Summary ---
[...] Inactive Checo Joshua Sinusitis ICD-461.9 Inactive Checo oCnklin MD Insect bite ICD-919.4 Ozzy Conklin MD Carbuncle/furuncle NOS ICD-680.9 Inactive Hilaria Conklin MD BRONCHITIS, ACUTE ICD-466.0 Inactive Checo gallagher MD Abdominal pain ICD-789.00 Inactive Checo ngo MD Medication List Medication Instructions Start Date Stop Date Generic Name NDC Status Provider Patient Instruction HYDROCODONE-ACETAMINOPHEN 5-325 MG TABS 0.5 to 1 tab b y mouth every 6 hours as needed HYDROCODONE-ACETAMINOPHEN 94113151154 Active Checo Conklin MD Active DICLOFENAC SODIUM 75 MG TBEC 1 tablet by mouth twice daily P RN Knee pain DICLOFENAC SODIUM 27913096588 Active Checo Conklin MD Active LAMISIL 250 MG TAB 1 po qd TERBINAFINE HCL 548 84224235 No Longer Active Checo Conklin MD Active REGLAN 10 MG TAB 1 po TID PRN Nausea METOCLOPRA MIDE HCL 90180070012 No Longer Active Checo Conklin MD Active CELEXA 20 MG TABS 1 tablet by mouth daily CITALOPRAM HYDROBROMIDE 31230391335 No Longer Active Checo Conklin MD Activ e AZITHROMYCIN 250 MG TABS 2 po qd x 1 day, then 1 po qd x 4 days AZITHROMYCIN 15003075011 No Longer Active Checo Conklin MD Active HYDROCODONE-ACETAMINOPHEN 5-325 MG TABS 1 po q 6hr PRN Pain 2013 HYDROCODONE-ACETAMINOPHEN 60010914961 No Longer Active Lenora Conklin MD Active PHENAZOPYRIDINE HCL 200 MG TABS take 1 tab po TID for bladder pa in PHENAZOPYRIDINE HCL 86722207857 No Longer Active Checo Joshua Active CIPRO 500 MG TAB 1 tablet by mouth twice daily CIPROFLOXACIN HCL 31631944559 No Longer Active Dangelo Rangel MD Active HYDROCODONE-ACETAMINOPHEN 5-325 MG TABS 1/2 to 1 po q 4 hour s prn cough HYDROCODONE-ACETAMINOPHEN 12366246139 No Longer Activ e Dangelo Rangel MD Active BACTRIM DS 800-160 MG TABS 1 po BID x 7 days 0 SULFAMETHOXAZOLE-TRIMETHOPRIM 87318319963 No Longer Active Checo Conklin MD Active PREDNISONE 20 MG TAB 2 tabs daily for 3 days, 1 t ab daily for 3 days, 1/2 tab daily for 2 days PREDNISONE 55024105000 No Longer Active Checo Conklin MD Active TRIAMCINOLONE ACETONIDE 0.1 % OINT Apply to affected a reas TID for up to 2 weeks TRIAMCINOLONE ACETONIDE 93274918986 No Longer A ctive Checo Conklin MD Active CEFDINIR 300 MG CAPS by mouth twice a day CEFDI JAZZY 53861298363 No Longer Active Dangelo Rangel MD Active BUPROPION HCL (SMOKING DETER) 150 MG [id number] 1 a day for 1 week then 1 twice a day BUPROPION HCL (SMOKING DETER) 93238799297 No Lo nger Active Checo Conklin MD Active SIMVASTATIN 20 MG TABS 1 po qd SIMVASTATIN 9266213138 5 Active Checo Conklin MD Active CHANTIX STARTING MONTH KARTHIK 0.5 MG X 11 & 1 MG X 42 TAB S 0.5mg daily for 3 days, then 0.5mg BID for 4 days, then 1mg BID VARENICLINE TARTRATE 84493785123 No Longer Active Checo Conklin MD Activ e XANAX 0.5 MG TABS 1 po BID PRN anxiety ALPRAZOLAM 91886528156 Active Checo Conklin MD Active CONCERTA 18 MG CR-TABS 1 po q a.m. METHYLPHENID ATE HCL 55932778942 No Longer Active Checo Conklin MD Active AMBIEN 5 MG TAB 1 po qHS PRN Insomnia ZOLPIDEM TARTRATE 13866591404 Active Checo Conklin MD Active TRAZODONE HCL 100 MG TAB 0.5 to 1 po qHS PRN Insomnia TRAZODONE HCL 27990608946 No Longer Active Checo Conklin MD Acti ve FIORICET 325-50-40 MG TAB 1 tablet by mouth four times daily as needed [id number] 56772068368 No Longer Active Checo Conklin MD Active PHENERGAN CREAM* 25mg applied to wrist q6hr PRN Nausea PHENERGAN CREAM* No Longer Active Checo Gonzales ctive FLONASE 50 MCG/ACT SUSP 1 spray each nostril am and hs FLUTICASONE PROPIONATE 92656267778 No Longer Active Checo Conklin MD Activ e ANTIPYRINE-BENZOCAINE 5.4-1.4 % SOLN 1-2 drops in affected ear BENZOCAINE-ANTIPYRINE 22844842265 No Longer Active Checo Conklin MD Active CEFDINIR 300 MG CAPS 1 po bid CEFDINIR 37989452 120 No Longer Active Checo Conklin MD Active PREDNISONE 20 MG TAB 2 tabs daily for 3 days, 1 t ab daily for 3 days, 1/2 tab daily for 2 days PREDNISONE 25823895627 No Longer Active Aracelis Conklin MD Active AZITHROMYCIN 250 MG TABS 2 po qd x 1 day, then 1 po qd x 4 days AZITHROMYCIN 24146770426 No Longer Active Checo Conklin MD Active PREDNISONE 20 MG TAB 2 tabs daily for 3 days, 1 t ab daily for 3 days, 1/2 tab daily for 2 days PREDNISONE 38983111997 No Longer Active Checo Conklin MD Active ZITHROMAX Z-KARTHIK 250 MG TABS 2 today, then 1 daily for 4 days 201 09/18/28 AZITHROMYCIN 54368112793 No Longer Active Paul Hamlin MD Active FOCALIN XR 10 MG [id number] 1 po q a.m. D EXMETHYLPHENIDATE HCL 24758070513 No Longer Active Paul Hamlin MD Activ e PERCOCET 10-325 MG TABS 1 tablet every 6 hours as needed for pain OXYCODONE-ACETAMINOPHEN 11338416118 No Longer Active Paul Hamlin MD Active LORTAB 5 5-500 MG TABS 1/2 to 1 tablet by mouth flaquito ry 4 hours as needed for pain HYDROCODONE-ACETAMINOPHEN 61009051866 No Longer Active Checo Conklin MD Active FOCALIN XR 15 MG [id number] 1 po q a.m. D EXMETHYLPHENIDATE HCL 00722157091 No Longer Active Checo Conklin MD Activ e ZOFRAN ODT 4 MG TBDP 1 po q6hr PRN Nausea ONDAN SETRON 20978081089 No Longer Active Checo Conklin MD Active PERCOCET 5-325 MG TABS 1 tablet by mouth every 6 hours as needed OXYCODONE-ACETAMINOPHEN 97243994449 No Longer Active Checo Conklin MD Active PYRIDIUM 200 MG TABS take 1 tab po TID prn urinary pain. 0 PHENAZOPYRIDINE HCL 32175790771 No Longer Active Checo Conklin MD Active FLUCONAZOLE 150 MG TABS take 1 tab po qday once 04/06 FLUCONAZOLE 25194449210 No Longer Active Dangelo Rangel MD Acti ve CIPRO 500 MG TAB 1 tablet by mouth twice daily CIPROFLOXACIN HCL 48025773670 No Longer Active Dangelo Rangel MD Active PYRIDIUM 200 MG TABS take 1 tab po TID prn urinary pain. 0 PYRIDIUM 200 MG TABS 7716064 PHENAZOPYRIDINE HCL Inactive PERCOCET 5-325 MG TABS 1 tablet by mouth every 6 hours as needed PERCOCET 5-325 MG TABS 6795945 OXYCODONE-ACETAMINOPHEN I nactive ZOFRAN ODT 4 MG TBDP 1 po q6hr PRN Nausea ZOFRAN ODT 4 MG TBDP 841048 ONDANSETRON Inactive FOCALIN XR 15 MG [id number] 1 po q a.m. F OCALIN XR 15 MG [id number] DEXMETHYLPHENIDATE HCL Inactive LORTAB 5 5-500 MG TABS 1/2 to 1 tablet by mouth flaquito ry 4 hours as needed for pain LORTAB 5 5-500 MG TABS HYDROCODONE-A CETAMINOPHEN Inactive PERCOCET 10-325 MG TABS 1 tablet every 6 hours as needed for pain PERCOCET 10-325 MG TABS 7149558 OXYCODONE-ACETAMINOPHEN Inactive FOCALIN XR 10 MG [id number] 1 po q a.m. F OCALIN XR 10 MG [id number] DEXMETHYLPHENIDATE HCL Inactive CEFDINIR 300 MG CAPS 1 po bid CEFDINIR 300 MG CAPS 20 0346 CEFDINIR Inactive ANTIPYRINE-BENZOCAINE 5.4-1.4 % SOLN 1-2 drops in affected ear ANTIPYRINE-BENZOCAINE 5.4-1.4 % SOLN 777659 BENZOCAINE-ANTIPYRINE I nactive FLONASE 50 MCG/ACT SUSP 1 spray each nostril am and hs FLONASE 50 MCG/ACT SUSP 235876 FLUTICASONE PROPIONATE Inactive PHENERGAN CREAM* 25mg applied to wrist q6hr PRN Nausea PHENERGAN CREAM* Inactive FIORICET 325-50-40 MG TAB 1 tablet by mouth four times daily as needed FIORICET 325-50-40 MG TAB ACETAMINOPHEN-C AFF-BUTALBITAL Inactive TRAZODONE HCL 100 MG TAB 0.5 to 1 po qHS PRN Insomnia TRAZODONE HCL 100 MG TAB 123408 TRAZODONE HCL Inactive CONCERTA 18 MG CR-TABS [...] s prn cough HYDROCODONE-ACETAMINOPHEN 5-325 MG TABS 570028 HYDROCODONE-ACETAMINOPHEN Inactive PHENAZOPYRIDINE HCL 200 MG TABS take 1 tab po TID for bladder pa in PHENAZOPYRIDINE HCL 200 MG TABS 8659297 PHENAZOPYRIDINE HCL Inactive HYDROCODONE-ACETAMINOPHEN 5-325 MG TABS 1 po q 6hr PRN Pain 2013 HYDROCODONE-ACETAMINOPHEN 5-325 MG TABS 441512 HYDROCODONE-ACETAMINOPHEN Inactive CELEXA 20 MG TABS 1 tablet by mouth daily CELEXA 20 MG TABS 028028 CITALOPRAM HYDROBROMIDE Inactive REGLAN 10 MG TAB 1 po TID PRN Nausea REGLAN 10 MG TAB 187029 METOCLOPRAMIDE HCL Inactive LAMISIL 250 MG TAB 1 po qd LAMISIL 250 MG TAB 039960 TERBINAFINE HCL Inactive CIPRO 500 MG TAB 1 tablet by mouth twice daily CIPRO 500 MG TAB 776218 CIPROFLOXACIN HCL Inactive FLUCONAZOLE 150 MG TABS take 1 tab po qday once 04/06 FLUCONAZOLE 150 MG TABS 097642 FLUCONAZOLE Inactive ZITHROMAX Z-KARTHIK 250 MG TABS 2 today, then 1 daily for 4 days 201 09/18/28 ZITHROMAX Z-KARTHIK 250 MG TABS 8918149 AZITHROMYCIN Inac tive PREDNISONE 20 MG TAB 2 tabs daily for 3 days, 1 t ab daily for 3 days, 1/2 tab daily for 2 days PREDNISONE 20 MG TAB 779561 PREDNISON E Inactive AZITHROMYCIN 250 MG TABS 2 po qd x 1 day, then 1 po qd x 4 days AZITHROMYCIN 250 MG TABS 6327357 AZITHROMYCIN Inactiv e PREDNISONE 20 MG TAB 2 tabs daily for 3 days, 1 t ab daily for 3 days, 1/2 tab daily for 2 days PREDNISONE 20 MG TAB 551836 PREDNISON E Inactive CEFDINIR 300 MG CAPS by mouth twice a day CEFDINIR 300 MG CAPS 150546 CEFDINIR Inactive TRIAMCINOLONE ACETONIDE 0.1 % OINT Apply to affected a reas TID for up to 2 weeks TRIAMCINOLONE ACETONIDE 0.1 % OINT 729440 6 TRIAMCINOLONE ACETONIDE Inactive PREDNISONE 20 MG TAB 2 tabs daily for 3 days, 1 t ab daily for 3 days, 1/2 tab daily for 2 days PREDNISONE 20 MG TAB 253971 PREDNISON E Inactive BACTRIM DS 800-160 MG TABS 1 po BID x 7 days 0 BACTRIM DS 800-160 MG TABS SULFAMETHOXAZOLE-TRIMETHOPRIM Inactive CIPRO 500 MG TAB 1 tablet by mouth twice daily CIPRO 500 MG TAB 174610 CIPROFLOXACIN HCL Inactive AZITHROMYCIN 250 MG TABS 2 po qd x 1 day, then 1 po qd x 4 days AZITHROMYCIN 250 MG TABS 8258435 AZITHROMYCIN Inactiv e Immunizations Vaccine Administration Date [...] 4.1 mmol/L 3.5-5.2 sodium, serum 139 mmol/L 772-791 6100/10/24 urea nitrogen, blood 11 mg/dL 7-18 creatinine, serum 0.70 mg/dL 0.60-1.30 alanine aminotransferase (SGPT), serum 12 U/L 12-78 aspartate aminotransferase (SGOT), serum 14 U/L 15-37 alkaline phosphatase, serum 64 U/L 50-136 calcium, serum 8.6 mg/dL 8.5-10.1 bilirubin, serum, total 0.80 mg/dL 0.00-1.00 cholesterol, serum 147 mg/dL 905-253 8094/10/24 triglyceride, serum, fasting 112 mg/dL 30-200 HDL [...] Clear Encounters Code Encounter Date Provider Facility CPT-21406 Level 3 Est. Patient 14:38:41 CDT Checo Conklin MD [facility] CPT-31549 Level 3 Est. Patient 15:22:03 RELEASE AND TECHNICAL RECORDS CLERK Thomas reynolds DO [facility] CPT-11371 Level 3 Est. Patient 13:34:17 RELEASE AND TECHNICAL RECORDS CLERK Checo Conklin MD [facility] CPT-78598 Level 3 Est. Patient 12:29:32 CDT Dangelo arroyo MD [facility] CPT-41234 Level 3 Est. Patient 16:53:02 CDT Checo Conklin MD [facility] CPT-98744 Level 3 Est. Patient 16:37:13 CDT Checo Conklin MD [facility] CPT-60997 Level 3 Est. Patient 16:16:59 CDT Paul Hamlin MD [facility] CPT-01979 Level 3 Est. Patient 14:20:13 CDT Dangelo arroyo MD [facility] CPT-31797 Level 4 Est. Patient 11:29:33 CDT Checo Conklin MD [facility] CPT-98567 Level 3 Est. Patient 17:08:31 CDT Checo Conklin MD [facility] CPT-16918 Level 3 Est. Patient 16:50:42 RELEASE AND TECHNICAL RECORDS CLERK Checo Conklin MD [facility] CPT-08882 Level 4 Est. Patient 09:26:08 RELEASE AND TECHNICAL RECORDS CLERK Checo Conklin MD [facility] CPT-60141 Level 3 Est. Patient 11:37:10 CDT Checo Conklin MD [facility] CPT-22229 Level 4 Est. Patient 14:07:38 CDT Checo Conklin MD [facility] CPT-43432 Level 3 Est. Patient 09:54:41 CDT Checo Conklin MD [facility] CPT-45381 Level 3 Est. Patient 11:10:54 CDT Paul Hamlin MD [facility] CPT-99836 Level 3 Est. Patient 14:16:56 RELEASE AND TECHNICAL RECORDS CLERK Checo Conklin MD [facility] CPT-79824 Level 3 Est. Patient 11:04:11 RELEASE AND TECHNICAL RECORDS CLERK Checo Conklin MD [facility] CPT-73941 Level 3 Est. Patient 17:09:26 CDT Dangelo arroyo MD [facility] CPT-56914 Level 3 Est. Patient 16:54:37 CDT Checo Conklin MD [facility] Procedures Code Procedure Name Date Entry Date Standard Desc ription CPT-OV Office Visit 11:31:28 CDT CPT-14680 Tubersol 09:39:29 CDT CPT-J2550 Phenergan 25 mg (Promethazine) 13:59:02 RELEASE AND TECHNICAL RECORDS CLERK CPT-J1885 Toradol 60 mg (Ketorolac) 13:59:02 RELEASE AND TECHNICAL RECORDS CLERK 2012
--- OUTSIDE RECORDS SUMMARY | 2019-09-29 02:36 | XMS REPORT | Clinical Summary ---
Author Author Admin, [facility] Address Unknown Phone Unavailable [...] q 4 hour s prn cough HYDROCODONE-ACETAMINOPHEN 14208697618 Active Paul montgomery MD Active CEFDINIR 300 MG CAPS by mouth twice a day CEFDI JAZZY 82291523319 Active Dangelo Rangel MD Active CELEXA 20 MG TABS 1 tablet by mouth daily CITAL OPRAM HYDROBROMIDE 73965601906 Active Checo Conklin MD Active BUPROPION HCL (SMOKING DETER) 150 MG [id number] 1 a day for 1 week then 1 twice a day BUPROPION HCL (SMOKING DETER) 75499664798 No Lo nger Active Checo Conklin MD Active SIMVASTATIN 20 MG TABS 1 po qd SIMVASTATIN 4114735968 4 Active Checo Conklin MD Active CHANTIX STARTING MONTH KARTHIK 0.5 MG X 11 & 1 MG X 42 TAB S 0.5mg daily for 3 days, then 0.5mg BID for 4 days, then 1mg BID VARENICLINE TARTRATE 46721367480 No Longer Active Checo Conklin MD Activ e XANAX 0.5 MG TABS 1 po BID PRN anxiety ALPRAZOLAM 23103758338 Active Checo Conklin MD Active CONCERTA 18 MG CR-TABS 1 po q a.m. METHYLPHENID ATE HCL 97785930200 No Longer Active Checo Conklin MD Active REGLAN 10 MG TAB 1 po TID PRN Nausea METOCLOPRA MIDE HCL 32092627858 Active Checo Conklin MD Active AMBIEN 5 MG TAB 1 po qHS PRN Insomnia ZOLPIDEM TARTRATE 99148889242 Active Checo Conklin MD Active TRAZODONE HCL 100 MG TAB 0.5 to 1 po qHS PRN Insomnia TRAZODONE HCL 70647324261 No Longer Active Checo Conklin MD Acti ve FIORICET 325-50-40 MG TAB 1 tablet by mouth four times daily as needed [id number] 87407137072 No Longer Active Checo Conklin MD Active PHENERGAN CREAM* 25mg applied to wrist q6hr PRN Nausea PHENERGAN CREAM* No Longer Active Checo Conklin MD A ctive LAMISIL 250 MG TAB 1 po qd TERBINAFINE HCL 1036474687 1 Active Checo Conklin MD Active FLONASE 50 MCG/ACT SUSP 1 spray each nostril am and hs FLUTICASONE PROPIONATE 68854536668 No Longer Active Checo Conklin MD Activ e ANTIPYRINE-BENZOCAINE 5.4-1.4 % SOLN 1-2 drops in affected ear BENZOCAINE-ANTIPYRINE 62783142057 No Longer Active Checo Conklin MD Active CEFDINIR 300 MG CAPS 1 po bid CEFDINIR 51161402 120 No Longer Active Checo Conklin MD Active PREDNISONE 20 MG TAB 2 tabs daily for 3 days, 1 t ab daily for 3 days, 1/2 tab daily for 2 days PREDNISONE 70759229045 No Longer Active Aracelis Conklin MD Active AZITHROMYCIN 250 MG TABS 2 po qd x 1 day, then 1 po qd x 4 days AZITHROMYCIN 22530309207 No Longer Active Checo Conklin MD Active PREDNISONE 20 MG TAB 2 tabs daily for 3 days, 1 t ab daily for 3 days, 1/2 tab daily for 2 days PREDNISONE 21225962318 No Longer Active Checo Conklin MD Active ZITHROMAX Z-KARTHIK 250 MG TABS 2 today, then 1 daily for 4 days 201 09/18/28 AZITHROMYCIN 86490926728 No Longer Active Paul Hamlin MD Active FOCALIN XR 10 MG [id number] 1 po q a.m. D EXMETHYLPHENIDATE HCL 52293263157 No Longer Active Paul Hamlin MD Activ e PERCOCET 10-325 MG TABS 1 tablet every 6 hours as needed for pain OXYCODONE-ACETAMINOPHEN 55104279622 No Longer Active Paul Hamlin MD Active LORTAB 5 5-500 MG TABS 1/2 to 1 tablet by mouth flaquito ry 4 hours as needed for pain HYDROCODONE-ACETAMINOPHEN 17260731318 No Longer Active Checo Conklin MD Active FOCALIN XR 15 MG [id number] 1 po q a.m. D EXMETHYLPHENIDATE HCL 84860109901 No Longer Active Checo Conklin MD Activ e ZOFRAN ODT 4 MG TBDP 1 po q6hr PRN Nausea ONDAN SETRON 55359129963 No Longer Active Checo Conklin MD Active PERCOCET 5-325 MG TABS 1 tablet by mouth every 6 hours as needed OXYCODONE-ACETAMINOPHEN 88981087192 No Longer Active Checo Conklin MD Active PYRIDIUM 200 MG TABS take 1 tab po TID prn urinary pain. PHENAZOPYRIDINE HCL 48685621041 No Longer Active Checo Conklin MD Active FLUCONAZOLE 150 MG TABS take 1 tab po qday once 04/06 FLUCONAZOLE 81789155071 No Longer Active Dangelo Rangel MD Acti ve CIPRO 500 MG TAB 1 tablet by mouth twice daily CIPROFLOXACIN HCL 52991062754 No Longer Active Dangelo Rangel MD Active PYRIDIUM 200 MG TABS take 1 tab po TID prn urinary pain. 0 PYRIDIUM 200 MG TABS 4585509 PHENAZOPYRIDINE HCL Inactive PERCOCET 5-325 MG TABS 1 tablet by mouth every 6 hours as needed PERCOCET 5-325 MG TABS 9536992 OXYCODONE-ACETAMINOPHEN I nactive ZOFRAN ODT 4 MG TBDP 1 po q6hr PRN Nausea ZOFRAN ODT 4 MG TBDP 397431 ONDANSETRON Inactive FOCALIN XR 15 MG [id number] 1 po q a.m. F OCALIN XR 15 MG [id number] DEXMETHYLPHENIDATE HCL Inactive LORTAB 5 5-500 MG TABS 1/2 to 1 tablet by mouth flaquito ry 4 hours as needed for pain LORTAB 5 5-500 MG TABS HYDROCODONE-A CETAMINOPHEN Inactive PERCOCET 10-325 MG TABS 1 tablet every 6 hours as needed for pain PERCOCET 10-325 MG TABS 5194957 OXYCODONE-ACETAMINOPHEN Inactive FOCALIN XR 10 MG [id number] 1 po q a.m. F OCALIN XR 10 MG [id number] DEXMETHYLPHENIDATE HCL Inactive CEFDINIR 300 MG CAPS 1 po bid CEFDINIR 300 MG CAPS 20 0346 CEFDINIR Inactive ANTIPYRINE-BENZOCAINE 5.4-1.4 % SOLN 1-2 drops in affected ear ANTIPYRINE-BENZOCAINE 5.4-1.4 % SOLN 962555 BENZOCAINE-ANTIPYRINE I nactive FLONASE 50 MCG/ACT SUSP 1 spray each nostril am and hs FLONASE 50 MCG/ACT SUSP 782933 FLUTICASONE PROPIONATE Inactive PHENERGAN CREAM* 25mg applied to wrist q6hr PRN Nausea PHENERGAN CREAM* Inactive FIORICET 325-50-40 MG TAB 1 tablet by mouth four times daily as needed FIORICET 325-50-40 MG TAB ACETAMINOPHEN-C AFF-BUTALBITAL Inactive TRAZODONE HCL 100 MG TAB 0.5 to 1 po qHS PRN Insomnia TRAZODONE HCL 100 MG TAB 783447 TRAZODONE HCL Inactive CONCERTA 18 MG CR-TABS [...] mouth twice daily CIPRO 500 MG TAB 317789 CIPROFLOXACIN HCL Inactive FLUCONAZOLE 150 MG TABS take 1 tab po qday once 04/06 FLUCONAZOLE 150 MG TABS 081206 FLUCONAZOLE Inactive ZITHROMAX Z-KARTHIK 250 MG TABS 2 today, then 1 daily for 4 days 201 09/18/28 ZITHROMAX Z-KARTHIK 250 MG TABS 1312866 AZITHROMYCIN Inac tive PREDNISONE 20 MG TAB 2 tabs daily for 3 days, 1 t ab daily for 3 days, 1/2 tab daily for 2 days PREDNISONE 20 MG TAB 352293 PREDNISON E Inactive AZITHROMYCIN 250 MG TABS 2 po qd x 1 day, then 1 po qd x 4 days AZITHROMYCIN 250 MG TABS 4720501 AZITHROMYCIN Inactiv e PREDNISONE 20 MG TAB 2 tabs daily for 3 days, 1 t ab daily for 3 days, 1/2 tab daily for 2 days PREDNISONE 20 MG TAB 539142 PREDNISON E Inactive Immunizations Vaccine Administration Date [...] 5.3 % 4.3-6.0 sodium, serum 139 mmol/L 627-388 7556/01/09 potassium, serum 4.3 mmol/L 3.5-5.2 chloride, serum [...] 1.10 mg/dL 0.00-1.00 cholesterol, serum 222 mg/dL 027-063 2973/01/09 triglyceride, serum, fasting 92 mg/dL 30-200 HDL [...] 142-424 Encounters Code Encounter Date Provider Facility CPT-62164 Level 3 Est. Patient 16:16:59 CDT Paul Hamlin MD [facility] CPT-76077 Level 3 Est. Patient 14:20:13 CDT Dangelo arroyo MD [facility] CPT-13733 Level 4 Est. Patient 11:29:33 CDT Checo Conklin MD [facility] CPT-94420 Level 3 Est. Patient 17:08:31 CDT Checo Conklin MD [facility] CPT-71418 Level 3 Est. Patient 16:50:42 TECH BRAZER TESTER Checo Conklin MD [facility] CPT-65370 Level 4 Est. Patient 09:26:08 TECH BRAZER TESTER Checo Conklin MD [facility] CPT-41532 Level 3 Est. Patient 11:37:10 CDT Checo Conklin MD [facility] CPT-41455 Level 4 Est. Patient 14:07:38 CDT Checo Conklin MD [facility] CPT-08796 Level 3 Est. Patient 09:54:41 CDT Checo Conklin MD [facility] CPT-51016 Level 3 Est. Patient 11:10:54 CDT Paul Hamlin MD [facility] CPT-88880 Level 3 Est. Patient 14:16:56 TECH BRAZER TESTER Checo Conklin MD [facility] CPT-17572 Level 3 Est. Patient 11:04:11 TECH BRAZER TESTER Checo Conklin MD [facility] CPT-30479 Level 3 Est. Patient 17:09:26 CDT Dangelo arroyo MD [facility] CPT-00200 Level 3 Est. Patient 16:54:37 CDT Checo Conklin MD [facility] Procedures Code Procedure Name Date Entry Date Standard Desc ription CPT-OV Office Visit 11:31:28 CDT CPT-03803 Tubersol 09:39:29 CDT CPT-J2550 Phenergan 25 mg (Promethazine) 13:59:02 TECH BRAZER TESTER CPT-J1885 Toradol 60 mg (Ketorolac) 13:59:02 TECH BRAZER TESTER 2012
--- OUTSIDE RECORDS SUMMARY | 2019-09-29 02:36 | XMS REPORT | Clinical Summary ---
Author Author Admin, Bethany Gonzales Organization [facility] Address Unknown Phone Allergies, Adverse Reactions, Alerts [...] tablet by mouth daily CITAL OPRAM HYDROBROMIDE 09319763301 Active Checo Conklin MD Active BUPROPION HCL (SMOKING DETER) 150 MG [id number] 1 a day for 1 week then 1 twice a day BUPROPION HCL (SMOKING DETER) 96555969983 No Lo nger Active Checo Conklin MD Active SIMVASTATIN 20 MG TABS 1 po qd SIMVASTATIN 3936745148 4 Active Checo Conklin MD Active CHANTIX STARTING MONTH KARTHIK 0.5 MG X 11 & 1 MG X 42 TAB S 0.5mg daily for 3 days, then 0.5mg BID for 4 days, then 1mg BID VARENICLINE TARTRATE 48920713830 No Longer Active Checo Conklin MD Activ e XANAX 0.5 MG TABS 1 po BID PRN anxiety ALPRAZOLAM 37379321029 Active Checo Conklin MD Active CONCERTA 18 MG CR-TABS 1 po q a.m. METHYLPHENID ATE HCL 76109857497 No Longer Active Checo Conklin MD Active REGLAN 10 MG TAB 1 po TID PRN Nausea METOCLOPRA MIDE HCL 42318176336 Active Checo Conklin MD Active AMBIEN 5 MG TAB 1 po qHS PRN Insomnia ZOLPIDEM TARTRATE 64309429934 Active Checo Conklin MD Active TRAZODONE HCL 100 MG TAB 0.5 to 1 po qHS PRN Insomnia TRAZODONE HCL 25299462782 No Longer Active Checo Conklin MD Acti ve FIORICET 325-50-40 MG TAB 1 tablet by mouth four times daily as needed [id number] 22952948475 No Longer Active Checo Conklin MD Active PHENERGAN CREAM* 25mg applied to wrist q6hr PRN Nausea PHENERGAN CREAM* No Longer Active Checo Conklin MD A ctive LAMISIL 250 MG TAB 1 po qd TERBINAFINE HCL 8363232966 1 Active Checo Conklin MD Active FLONASE 50 MCG/ACT SUSP 1 spray each nostril am and hs FLUTICASONE PROPIONATE 79194852169 No Longer Active Checo Conklin MD Activ e ANTIPYRINE-BENZOCAINE 5.4-1.4 % SOLN 1-2 drops in affected ear BENZOCAINE-ANTIPYRINE 53754482099 No Longer Active Checo Conklin MD Active CEFDINIR 300 MG CAPS 1 po bid CEFDINIR 08690110 120 No Longer Active Checo Conklin MD Active PREDNISONE 20 MG TAB 2 tabs daily for 3 days, 1 t ab daily for 3 days, 1/2 tab daily for 2 days PREDNISONE 73855834848 No Longer Active M greg Conklin MD Active AZITHROMYCIN 250 MG TABS 2 po qd x 1 day, then 1 po qd x 4 days AZITHROMYCIN 03376917674 No Longer Active Checo Conklin MD Active PREDNISONE 20 MG TAB 2 tabs daily for 3 days, 1 t ab daily for 3 days, 1/2 tab daily for 2 days PREDNISONE 22688174615 No Longer Active Checo Conklin MD Active ZITHROMAX Z-KARTHIK 250 MG TABS 2 today, then 1 daily for 4 days 201 09/18/28 AZITHROMYCIN 46697479435 No Longer Active Paul Hamlin MD Active FOCALIN XR 10 MG [id number] 1 po q a.m. D EXMETHYLPHENIDATE HCL 77963196959 No Longer Active Palu Hamlin MD Activ e PERCOCET 10-325 MG TABS 1 tablet every 6 hours as needed for pain OXYCODONE-ACETAMINOPHEN 78596860872 No Longer Active Paul Hamlin MD Active LORTAB 5 5-500 MG TABS 1/2 to 1 tablet by mouth flaquito ry 4 hours as needed for pain HYDROCODONE-ACETAMINOPHEN 33672900255 No Longer Active Checo Conklin MD Active FOCALIN XR 15 MG [id number] 1 po q a.m. D EXMETHYLPHENIDATE HCL 26065595134 No Longer Active Checo Conklin MD Activ e ZOFRAN ODT 4 MG TBDP 1 po q6hr PRN Nausea ONDAN SETRON 21216587998 No Longer Active Checo Conklin MD Active PERCOCET 5-325 MG TABS 1 tablet by mouth every 6 hours as needed OXYCODONE-ACETAMINOPHEN 08048604854 No Longer Active Checo Conklin MD Active PYRIDIUM 200 MG TABS take 1 tab po TID prn urinary pain. 0 PHENAZOPYRIDINE HCL 68356982398 No Longer Active Checo Conklin MD Active FLUCONAZOLE 150 MG TABS take 1 tab po qday once 04/06 FLUCONAZOLE 70462084887 No Longer Active Dangelo Rangel MD Acti ve CIPRO 500 MG TAB 1 tablet by mouth twice daily CIPROFLOXACIN HCL 41920531776 No Longer Active Dangelo Rangel MD Active PYRIDIUM 200 MG TABS take 1 tab po TID prn urinary pain. 0 PYRIDIUM 200 MG TABS 8032750 PHENAZOPYRIDINE HCL Inactive PERCOCET 5-325 MG TABS 1 tablet by mouth every 6 hours as needed PERCOCET 5-325 MG TABS 2323237 OXYCODONE-ACETAMINOPHEN I nactive ZOFRAN ODT 4 MG TBDP 1 po q6hr PRN Nausea ZOFRAN ODT 4 MG TBDP 872438 ONDANSETRON Inactive FOCALIN XR 15 MG [id number] 1 po q a.m. F OCALIN XR 15 MG [id number] DEXMETHYLPHENIDATE HCL Inactive LORTAB 5 5-500 MG TABS 1/2 to 1 tablet by mouth flaquito ry 4 hours as needed for pain LORTAB 5 5-500 MG TABS HYDROCODONE-A CETAMINOPHEN Inactive PERCOCET 10-325 MG TABS 1 tablet every 6 hours as needed for pain PERCOCET 10-325 MG TABS 8879497 OXYCODONE-ACETAMINOPHEN Inactive FOCALIN XR 10 MG [id number] 1 po q a.m. F OCALIN XR 10 MG [id number] DEXMETHYLPHENIDATE HCL Inactive CEFDINIR 300 MG CAPS 1 po bid CEFDINIR 300 MG CAPS 20 0346 CEFDINIR Inactive ANTIPYRINE-BENZOCAINE 5.4-1.4 % SOLN 1-2 drops in affected ear ANTIPYRINE-BENZOCAINE 5.4-1.4 % SOLN 932951 BENZOCAINE-ANTIPYRINE I nactive FLONASE 50 MCG/ACT SUSP 1 spray each nostril am and hs FLONASE 50 MCG/ACT SUSP 523641 FLUTICASONE PROPIONATE Inactive PHENERGAN CREAM* 25mg applied to wrist q6hr PRN Nausea PHENERGAN CREAM* Inactive FIORICET 325-50-40 MG TAB 1 tablet by mouth four times daily as needed FIORICET 325-50-40 MG TAB ACETAMINOPHEN-C AFF-BUTALBITAL Inactive TRAZODONE HCL 100 MG TAB 0.5 to 1 po qHS PRN Insomnia TRAZODONE HCL 100 MG TAB 061068 TRAZODONE HCL Inactive CONCERTA 18 MG CR-TABS [...] mouth twice daily CIPRO 500 MG TAB 867882 CIPROFLOXACIN HCL Inactive FLUCONAZOLE 150 MG TABS take 1 tab po qday once 04/06 FLUCONAZOLE 150 MG TABS 224430 FLUCONAZOLE Inactive ZITHROMAX Z-KARTHIK 250 MG TABS 2 today, then 1 daily for 4 days 201 09/18/28 ZITHROMAX Z-KARTHIK 250 MG TABS 4215978 AZITHROMYCIN Inac tive PREDNISONE 20 MG TAB 2 tabs daily for 3 days, 1 t ab daily for 3 days, 1/2 tab daily for 2 days PREDNISONE 20 MG TAB 302841 PREDNISON E Inactive AZITHROMYCIN 250 MG TABS 2 po qd x 1 day, then 1 po qd x 4 days AZITHROMYCIN 250 MG TABS 6618613 AZITHROMYCIN Inactiv e PREDNISONE 20 MG TAB 2 tabs daily for 3 days, 1 t ab daily for 3 days, 1/2 tab daily for 2 days PREDNISONE 20 MG TAB 220126 PREDNISON E Inactive Immunizations Vaccine Administration Date [...] 5.3 % 4.3-6.0 sodium, serum 139 mmol/L 141-183 6620/01/09 potassium, serum 4.3 mmol/L 3.5-5.2 chloride, serum [...] 1.10 mg/dL 0.00-1.00 cholesterol, serum 222 mg/dL 794-624 1938/01/09 triglyceride, serum, fasting 92 mg/dL 30-200 HDL [...] 142-424 Encounters Code Encounter Date Provider Facility CPT-47986 Level 4 Est. Patient 11:29:33 CDT Checo Conklin MD [facility] CPT-14716 Level 3 Est. Patient 17:08:31 CDT Checo Conklin MD [facility] CPT-23384 Level 3 Est. 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 Patient 11:37:10 CDT Checo Conklin MD [facility] CPT-61680 Level 4 Est. Patient 14:07:38 CDT Checo Conklin MD [facility] CPT-40268 Level 3 Est. Patient 09:54:41 CDT Checo Conklin MD [facility] CPT-24533 Level 3 Est. Patient 11:10:54 CDT Paul Hamlin MD [facility] CPT-83722 Level 3 Est. 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 Patient 17:09:26 CDT Dangelo arroyo MD [facility] CPT-80913 Level 3 Est. Patient 16:54:37 CDT Checo Conklin MD [facility] Procedures Code Procedure Name Date Entry Date Standard Desc ription CPT-21471 Tubersol 09:39:29 CDT CPT-J2550 Phenergan 25 mg (Promethazine) 13:59:02 ADVERTISING SALES ASSISTANT CPT-J1885 Toradol 60 mg (Ketorolac) 13:59:02 ADVERTISING SALES ASSISTANT 2012
--- OUTSIDE RECORDS SUMMARY | 2019-09-29 02:36 | XMS REPORT | Clinical Summary ---
Author Author Admin, Bethany Gonzales Organization [facility] Address Unknown Phone Allergies, Adverse Reactions, [...] site not specified ANXIETY 300.00 Active Checo oCnklin MD Anxiety state, unspecified A D D [...] tablet by mouth daily CITAL OPRAM HYDROBROMIDE 60887289892 Active Checo Conklin MD Active BUPROPION HCL (SMOKING DETER) 150 MG [id number] 1 a day for 1 week then 1 twice a day BUPROPION HCL (SMOKING DETER) 81780158112 No Lo nger Active Checo Conklin MD Active SIMVASTATIN 20 MG TABS 1 po qd SIMVASTATIN 3143448224 4 Active Checo Conklin MD Active CHANTIX STARTING MONTH KARTHIK 0.5 MG X 11 & 1 MG X 42 TAB S 0.5mg daily for 3 days, then 0.5mg BID for 4 days, then 1mg BID VARENICLINE TARTRATE 21678276583 No Longer Active Checo Conklin MD Activ e XANAX 0.5 MG TABS 1 po BID PRN anxiety ALPRAZOLAM 83323225245 Active Checo Conklin MD Active CONCERTA 18 MG CR-TABS 1 po q a.m. METHYLPHENID ATE HCL 80386025162 No Longer Active Checo Conklin MD Active REGLAN 10 MG TAB 1 po TID PRN Nausea METOCLOPRA MIDE HCL 14694040968 Active Checo Conklin MD Active AMBIEN 5 MG TAB 1 po qHS PRN Insomnia ZOLPIDEM TARTRATE 94522498468 Active Checo Conklin MD Active TRAZODONE HCL 100 MG TAB 0.5 to 1 po qHS PRN Insomnia TRAZODONE HCL 87940942978 No Longer Active Checo Conklin MD Acti ve FIORICET 325-50-40 MG TAB 1 tablet by mouth four times daily as needed [id number] 76935595130 No Longer Active Checo Conklin MD Active PHENERGAN CREAM* 25mg applied to wrist q6hr PRN Nausea PHENERGAN CREAM* No Longer Active Checo Conklin MD A ctive LAMISIL 250 MG TAB 1 po qd TERBINAFINE HCL 1212543958 1 Active Checo Conklin MD Active FLONASE 50 MCG/ACT SUSP 1 spray each nostril am and hs FLUTICASONE PROPIONATE 21457744527 No Longer Active Checo Conklin MD Activ e ANTIPYRINE-BENZOCAINE 5.4-1.4 % SOLN 1-2 drops in affected ear BENZOCAINE-ANTIPYRINE 23208275973 No Longer Active Checo Conklin MD Active CEFDINIR 300 MG CAPS 1 po bid CEFDINIR 64222945 120 No Longer Active Checo Conklin MD Active PREDNISONE 20 MG TAB 2 tabs daily for 3 days, 1 t ab daily for 3 days, 1/2 tab daily for 2 days PREDNISONE 18931491285 No Longer Active M greg Conklin MD Active AZITHROMYCIN 250 MG TABS 2 po qd x 1 day, then 1 po qd x 4 days AZITHROMYCIN 81235859081 No Longer Active Checo Conklin MD Active PREDNISONE 20 MG TAB 2 tabs daily for 3 days, 1 t ab daily for 3 days, 1/2 tab daily for 2 days PREDNISONE 20941423713 No Longer Active Checo Conklin MD Active ZITHROMAX Z-KARTHIK 250 MG TABS 2 today, then 1 daily for 4 days 201 09/18/28 AZITHROMYCIN 59800946096 No Longer Active Paul Hamlin MD Active FOCALIN XR 10 MG [id number] 1 po q a.m. D EXMETHYLPHENIDATE HCL 75108017459 No Longer Active Paul Hamlin MD Activ e PERCOCET 10-325 MG TABS 1 tablet every 6 hours as needed for pain OXYCODONE-ACETAMINOPHEN 70251070254 No Longer Active Paul Hamlin MD Active LORTAB 5 5-500 MG TABS 1/2 to 1 tablet by mouth flaquito ry 4 hours as needed for pain HYDROCODONE-ACETAMINOPHEN 32896243000 No Longer Active Checo Conklin MD Active FOCALIN XR 15 MG [id number] 1 po q a.m. D EXMETHYLPHENIDATE HCL 37080666170 No Longer Active Checo Conklin MD Activ e ZOFRAN ODT 4 MG TBDP 1 po q6hr PRN Nausea ONDAN SETRON 80175818005 No Longer Active Checo Conklin MD Active PERCOCET 5-325 MG TABS 1 tablet by mouth every 6 hours as needed OXYCODONE-ACETAMINOPHEN 05079005318 No Longer Active Checo Conklin MD Active PYRIDIUM 200 MG TABS take 1 tab po TID prn urinary pain. 0 PHENAZOPYRIDINE HCL 28259086599 No Longer Active Checo Conklin MD Active FLUCONAZOLE 150 MG TABS take 1 tab po qday once 04/06 FLUCONAZOLE 73262512337 No Longer Active Dangelo Rangel MD Acti ve CIPRO 500 MG TAB 1 tablet by mouth twice daily CIPROFLOXACIN HCL 54943795648 No Longer Active Dangelo Rangel MD Active PYRIDIUM 200 MG TABS take 1 tab po TID prn urinary pain. 0 PYRIDIUM 200 MG TABS 4964145 PHENAZOPYRIDINE HCL Inactive PERCOCET 5-325 MG TABS 1 tablet by mouth every 6 hours as needed PERCOCET 5-325 MG TABS 7987408 OXYCODONE-ACETAMINOPHEN I nactive ZOFRAN ODT 4 MG TBDP 1 po q6hr PRN Nausea ZOFRAN ODT 4 MG TBDP 583638 ONDANSETRON Inactive FOCALIN XR 15 MG [id number] 1 po q a.m. F OCALIN XR 15 MG [id number] DEXMETHYLPHENIDATE HCL Inactive LORTAB 5 5-500 MG TABS 1/2 to 1 tablet by mouth flaquito ry 4 hours as needed for pain LORTAB 5 5-500 MG TABS HYDROCODONE-A CETAMINOPHEN Inactive PERCOCET 10-325 MG TABS 1 tablet every 6 hours as needed for pain PERCOCET 10-325 MG TABS 8531620 OXYCODONE-ACETAMINOPHEN Inactive FOCALIN XR 10 MG [id number] 1 po q a.m. F OCALIN XR 10 MG [id number] DEXMETHYLPHENIDATE HCL Inactive CEFDINIR 300 MG CAPS 1 po bid CEFDINIR 300 MG CAPS 20 0346 CEFDINIR Inactive ANTIPYRINE-BENZOCAINE 5.4-1.4 % SOLN 1-2 drops in affected ear ANTIPYRINE-BENZOCAINE 5.4-1.4 % SOLN 639957 BENZOCAINE-ANTIPYRINE I nactive FLONASE 50 MCG/ACT SUSP 1 spray each nostril am and hs FLONASE 50 MCG/ACT SUSP 428978 FLUTICASONE PROPIONATE Inactive PHENERGAN CREAM* 25mg applied to wrist q6hr PRN Nausea PHENERGAN CREAM* Inactive FIORICET 325-50-40 MG TAB 1 tablet by mouth four times daily as needed FIORICET 325-50-40 MG TAB ACETAMINOPHEN-C AFF-BUTALBITAL Inactive TRAZODONE HCL 100 MG TAB 0.5 to 1 po qHS PRN Insomnia TRAZODONE HCL 100 MG TAB 821751 TRAZODONE HCL Inactive CONCERTA 18 MG CR-TABS [...] mouth twice daily CIPRO 500 MG TAB 793330 CIPROFLOXACIN HCL Inactive FLUCONAZOLE 150 MG TABS take 1 tab po qday once 04/06 FLUCONAZOLE 150 MG TABS 583374 FLUCONAZOLE Inactive ZITHROMAX Z-KARTHIK 250 MG TABS 2 today, then 1 daily for 4 days 201 09/18/28 ZITHROMAX Z-KARTHIK 250 MG TABS 2940200 AZITHROMYCIN Inac tive PREDNISONE 20 MG TAB 2 tabs daily for 3 days, 1 t ab daily for 3 days, 1/2 tab daily for 2 days PREDNISONE 20 MG TAB 121407 PREDNISON E Inactive AZITHROMYCIN 250 MG TABS 2 po qd x 1 day, then 1 po qd x 4 days AZITHROMYCIN 250 MG TABS 6166001 AZITHROMYCIN Inactiv e PREDNISONE 20 MG TAB 2 tabs daily for 3 days, 1 t ab daily for 3 days, 1/2 tab daily for 2 days PREDNISONE 20 MG TAB 697270 PREDNISON E Inactive Immunizations Vaccine Administration Date [...] Panel - Chemistry sodium, serum 139 mmol/L 065-072 8011/01/09 potassium, serum 4.3 mmol/L 3.5-5.2 chloride, serum [...] 1.10 mg/dL 0.00-1.00 cholesterol, serum 222 mg/dL 813-424 6396/01/09 triglyceride, serum, fasting 92 mg/dL 30-200 HDL [...] 11 .6-14.8 platelet count 179 10^3/MM^3 10*3/mm3 836-803 0138/01/09 lymphocytes as percent of blood leukocytes 37.5 % 20.5-51.1 monocytes as percent of blood leukocytes 8.7 % 1.7-9.3 neutrophils as percent of blood leukocytes 51.6 % 42.2-75.2 leukocyte count, blood 5.5 10^3/MM^3 10*3/mm3 4.6-10.2 Encounters Code Encounter Date Provider Facility CPT-34949 Level 4 Est. Patient 11:29:33 CDT Checo Conklin MD [facility] CPT-33545 Level 3 Est. Patient 17:08:31 CDT Checo Conklin MD [facility] CPT-67211 Level 3 Est. 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 CPT-27625 Level 3 Est. Patient 11:37:10 CDT Checo Conklin MD [facility] CPT-25264 Level 4 Est. Patient 14:07:38 CDT Checo Conklin MD [facility] CPT-22195 Level 3 Est. Patient 09:54:41 CDT Checo Conklin MD [facility] CPT-11555 Level 3 Est. Patient 11:10:54 CDT Paul Hamlin MD [facility] CPT-21838 Level 3 Est. 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 Patient 17:09:26 CDT Dangelo arroyo MD [facility] CPT-52093 Level 3 Est. Patient 16:54:37 CDT Checo Conklin MD [facility] Procedures Code Procedure Name Date Entry Date Standard Desc ription CPT-05919 Tubersol 09:39:29 CDT CPT-J2550 Phenergan 25 mg (Promethazine) 13:59:02 BOILER HOUSE OPERATOR CPT-J1885 Toradol 60 mg (Ketorolac) 13:59:02 BOILER HOUSE OPERATOR 2012
--- OUTSIDE RECORDS SUMMARY | 2019-09-29 02:36 | XMS REPORT | Clinical Summary ---
Author Author Admin, Bethany Ayala [facility] Address Unknown Phone Unavailable Allergies, [...] 1 po q 6hr PRN Pain HYDROCODONE-ACETAMINOPHEN 82720722252 Active Dangelo Rangel MD Active PHENAZOPYRIDINE HCL 200 MG TABS take 1 tab po TID for bladder pain PHENAZOPYRIDINE HCL 76170225755 Active Dangelo Rangel MD A ctive CIPRO 500 MG TAB 1 tablet by mouth twice daily CIPROFLOXACIN HCL 31503306140 Active Dangelo Rangel MD Act mike HYDROCODONE-ACETAMINOPHEN 5-325 MG TABS 1/2 to 1 po q 4 hour s prn cough HYDROCODONE-ACETAMINOPHEN 86106734917 No Longer Activ e Dangelo Rangel MD Active BACTRIM DS 800-160 MG TABS 1 po BID x 7 days 0 SULFAMETHOXAZOLE-TRIMETHOPRIM 54330684672 No Longer Active Checo Conklin MD Active PREDNISONE 20 MG TAB 2 tabs daily for 3 days, 1 t ab daily for 3 days, 1/2 tab daily for 2 days PREDNISONE 46424275289 No Longer Active Checo Conklin MD Active TRIAMCINOLONE ACETONIDE 0.1 % OINT Apply to affected a reas TID for up to 2 weeks TRIAMCINOLONE ACETONIDE 01428382564 No Longer A ctive Checo Conklin MD Active CEFDINIR 300 MG CAPS by mouth twice a day CEFDI JAZZY 44680651435 No Longer Active Dangelo Rangel MD Active CELEXA 20 MG TABS 1 tablet by mouth daily CITAL OPRAM HYDROBROMIDE 82004597786 Active Checo Conklin MD Active BUPROPION HCL (SMOKING DETER) 150 MG [id number] 1 a day for 1 week then 1 twice a day BUPROPION HCL (SMOKING DETER) 98339187309 No Lo nger Active Checo Conklin MD Active SIMVASTATIN 20 MG TABS 1 po qd SIMVASTATIN 8724512757 4 Active Checo Conklin MD Active CHANTIX STARTING MONTH KARTHIK 0.5 MG X 11 & 1 MG X 42 TAB S 0.5mg daily for 3 days, then 0.5mg BID for 4 days, then 1mg BID VARENICLINE TARTRATE 44973086740 No Longer Active Checo Conklin MD Activ e XANAX 0.5 MG TABS 1 po BID PRN anxiety ALPRAZOLAM 85489241611 Active Checo Conklin MD Active CONCERTA 18 MG CR-TABS 1 po q a.m. METHYLPHENID ATE HCL 02984351550 No Longer Active Checo Conklin MD Active REGLAN 10 MG TAB 1 po TID PRN Nausea METOCLOPRA MIDE HCL 04344977222 Active Checo Conklin MD Active AMBIEN 5 MG TAB 1 po qHS PRN Insomnia ZOLPIDEM TARTRATE 69976590470 Active Checo Conklin MD Active TRAZODONE HCL 100 MG TAB 0.5 to 1 po qHS PRN Insomnia TRAZODONE HCL 25794219917 No Longer Active Checo Conklin MD Acti ve FIORICET 325-50-40 MG TAB 1 tablet by mouth four times daily as needed [id number] 56124041596 No Longer Active Checo Conklin MD Active PHENERGAN CREAM* 25mg applied to wrist q6hr PRN Nausea PHENERGAN CREAM* No Longer Active Checo Conklin MD A ctive LAMISIL 250 MG TAB 1 po qd TERBINAFINE HCL 9329776777 1 Active Checo Conklin MD Active FLONASE 50 MCG/ACT SUSP 1 spray each nostril am and hs FLUTICASONE PROPIONATE 38433132698 No Longer Active Checo Conklin MD Activ e ANTIPYRINE-BENZOCAINE 5.4-1.4 % SOLN 1-2 drops in affected ear BENZOCAINE-ANTIPYRINE 77057735376 No Longer Active Checo Conklin MD Active CEFDINIR 300 MG CAPS 1 po bid CEFDINIR 64918717 120 No Longer Active Checo Conklin MD Active PREDNISONE 20 MG TAB 2 tabs daily for 3 days, 1 t ab daily for 3 days, 1/2 tab daily for 2 days PREDNISONE 66292468042 No Longer Active M greg Conklin MD Active AZITHROMYCIN 250 MG TABS 2 po qd x 1 day, then 1 po qd x 4 days AZITHROMYCIN 42979751298 No Longer Active Checo Conklin MD Active PREDNISONE 20 MG TAB 2 tabs daily for 3 days, 1 t ab daily for 3 days, 1/2 tab daily for 2 days PREDNISONE 09001242854 No Longer Active Checo Conklin MD Active ZITHROMAX Z-KARTHIK 250 MG TABS 2 today, then 1 daily for 4 days 201 09/18/28 AZITHROMYCIN 41750230126 No Longer Active Paul Hamlin MD Active FOCALIN XR 10 MG [id number] 1 po q a.m. D EXMETHYLPHENIDATE HCL 65219461699 No Longer Active Paul Hamlin MD Activ e PERCOCET 10-325 MG TABS 1 tablet every 6 hours as needed for pain OXYCODONE-ACETAMINOPHEN 63270016809 No Longer Active Paul Hamlin MD Active LORTAB 5 5-500 MG TABS 1/2 to 1 tablet by mouth flaquito ry 4 hours as needed for pain HYDROCODONE-ACETAMINOPHEN 58124468587 No Longer Active Checo Conklin MD Active FOCALIN XR 15 MG [id number] 1 po q a.m. D EXMETHYLPHENIDATE HCL 08481127936 No Longer Active Checo Conklin MD Activ e ZOFRAN ODT 4 MG TBDP 1 po q6hr PRN Nausea ONDAN SETRON 72467153673 No Longer Active Checo Conklin MD Active PERCOCET 5-325 MG TABS 1 tablet by mouth every 6 hours as needed OXYCODONE-ACETAMINOPHEN 59825198338 No Longer Active Checo Conklin MD Active PYRIDIUM 200 MG TABS take 1 tab po TID prn urinary pain. 0 PHENAZOPYRIDINE HCL 27634018585 No Longer Active Checo Conklin MD Active FLUCONAZOLE 150 MG TABS take 1 tab po qday once 04/06 FLUCONAZOLE 19792246618 No Longer Active Dangelo Rangel MD Acti ve CIPRO 500 MG TAB 1 tablet by mouth twice daily CIPROFLOXACIN HCL 49664382317 No Longer Active Dangelo Rangel MD Active PYRIDIUM 200 MG TABS take 1 tab po TID prn urinary pain. 0 PYRIDIUM 200 MG TABS 4670658 PHENAZOPYRIDINE HCL Inactive PERCOCET 5-325 MG TABS 1 tablet by mouth every 6 hours as needed PERCOCET 5-325 MG TABS 3544100 OXYCODONE-ACETAMINOPHEN I nactive ZOFRAN ODT 4 MG TBDP 1 po q6hr PRN Nausea ZOFRAN ODT 4 MG TBDP 762201 ONDANSETRON Inactive FOCALIN XR 15 MG [id number] 1 po q a.m. F OCALIN XR 15 MG [id number] DEXMETHYLPHENIDATE HCL Inactive LORTAB 5 5-500 MG TABS 1/2 to 1 tablet by mouth flaquito ry 4 hours as needed for pain LORTAB 5 5-500 MG TABS HYDROCODONE-A CETAMINOPHEN Inactive PERCOCET 10-325 MG TABS 1 tablet every 6 hours as needed for pain PERCOCET 10-325 MG TABS 4087142 OXYCODONE-ACETAMINOPHEN Inactive FOCALIN XR 10 MG [id number] 1 po q a.m. F OCALIN XR 10 MG [id number] DEXMETHYLPHENIDATE HCL Inactive CEFDINIR 300 MG CAPS 1 po bid CEFDINIR 300 MG CAPS 20 0346 CEFDINIR Inactive ANTIPYRINE-BENZOCAINE 5.4-1.4 % SOLN 1-2 drops in affected ear ANTIPYRINE-BENZOCAINE 5.4-1.4 % SOLN 223994 BENZOCAINE-ANTIPYRINE I nactive FLONASE 50 MCG/ACT SUSP 1 spray each nostril am and hs FLONASE 50 MCG/ACT SUSP 752372 FLUTICASONE PROPIONATE Inactive PHENERGAN CREAM* 25mg applied to wrist q6hr PRN Nausea PHENERGAN CREAM* Inactive FIORICET 325-50-40 MG TAB 1 tablet by mouth four times daily as needed FIORICET 325-50-40 MG TAB ACETAMINOPHEN-C AFF-BUTALBITAL Inactive TRAZODONE HCL 100 MG TAB 0.5 to 1 po qHS PRN Insomnia TRAZODONE HCL 100 MG TAB 920130 TRAZODONE HCL Inactive CONCERTA 18 MG CR-TABS [...] s prn cough HYDROCODONE-ACETAMINOPHEN 5-325 MG TABS 273335 HYDROCODONE-ACETAMINOPHEN Inactive CIPRO 500 MG TAB 1 tablet by mouth twice daily CIPRO 500 MG TAB 321859 CIPROFLOXACIN HCL Inactive FLUCONAZOLE 150 MG TABS take 1 tab po qday once 04/06 FLUCONAZOLE 150 MG TABS 569041 FLUCONAZOLE Inactive ZITHROMAX Z-KARTHIK 250 MG TABS 2 today, then 1 daily for 4 days 201 09/18/28 ZITHROMAX Z-KARTHIK 250 MG TABS 3909485 AZITHROMYCIN Inac tive PREDNISONE 20 MG TAB 2 tabs daily for 3 days, 1 t ab daily for 3 days, 1/2 tab daily for 2 days PREDNISONE 20 MG TAB 800100 PREDNISON E Inactive AZITHROMYCIN 250 MG TABS 2 po qd x 1 day, then 1 po qd x 4 days AZITHROMYCIN 250 MG TABS 3818763 AZITHROMYCIN Inactiv e PREDNISONE 20 MG TAB 2 tabs daily for 3 days, 1 t ab daily for 3 days, 1/2 tab daily for 2 days PREDNISONE 20 MG TAB 297203 PREDNISON E Inactive CEFDINIR 300 MG CAPS by mouth twice a day CEFDINIR 300 MG CAPS 125385 CEFDINIR Inactive TRIAMCINOLONE ACETONIDE 0.1 % OINT Apply to affected a reas TID for up to 2 weeks TRIAMCINOLONE ACETONIDE 0.1 % OINT 052012 6 TRIAMCINOLONE ACETONIDE Inactive PREDNISONE 20 MG TAB 2 tabs daily for 3 days, 1 t ab daily for 3 days, 1/2 tab daily for 2 days PREDNISONE 20 MG TAB 749941 PREDNISON E Inactive BACTRIM DS 800-160 MG [...] Panel - Chemistry sodium, serum 139 mmol/L 672-454 6817/10/24 potassium, serum 4.1 mmol/L 3.5-5.2 chloride, serum [...] 0.80 mg/dL 0.00-1.00 cholesterol, serum 147 mg/dL 865-812 8402/10/24 triglyceride, serum, fasting 112 mg/dL 30-200 HDL cholesterol, serum 40 mg/dL 32-96 LDL cholesterol, serum 85 mg/dL 0-130 Lab Report: HGBA1C, CBC W/DIFF, Comp. Me tabolic Panel, Lipid Panel - Chemistry sodium, serum 139 mmol/L 148-943 0999/01/09 potassium, serum 4.3 mmol/L 3.5-5.2 chloride, serum [...] 1.10 mg/dL 0.00-1.00 cholesterol, serum 222 mg/dL 760-070 1523/01/09 triglyceride, serum, fasting 92 mg/dL 30-200 HDL [...] Clear Encounters Code Encounter Date Provider Facility CPT-42054 Level 3 Est. Patient 12:29:32 CDT Dangelo arroyo MD [facility] CPT-66352 Level 3 Est. Patient 16:53:02 CDT Checo Conklin MD [facility] CPT-42693 Level 3 Est. Patient 16:37:13 CDT Checo Conklin MD [facility] CPT-37111 Level 3 Est. Patient 16:16:59 CDT Paul Hamlin MD [facility] CPT-41356 Level 3 Est. Patient 14:20:13 CDT Dangelo arroyo MD [facility] CPT-54111 Level 4 Est. Patient 11:29:33 CDT Checo Conklin MD [facility] CPT-50339 Level 3 Est. Patient 17:08:31 CDT Checo Cnoklin MD [facility] CPT-55231 Level 3 Est. Patient 16:50:42 CHAINSTITCH SEAT JOINER Checo Conklin MD [facility] CPT-53720 Level 4 Est. Patient 09:26:08 CHAINSTITCH SEAT JOINER Checo Conklin MD [facility] CPT-24769 Level 3 Est. Patient 11:37:10 CDT Checo Conklin MD [facility] CPT-48260 Level 4 Est. Patient 14:07:38 CDT Checo Conklin MD [facility] CPT-12412 Level 3 Est. Patient 09:54:41 CDT Checo Conklin MD [facility] CPT-21956 Level 3 Est. Patient 11:10:54 CDT Paul Hamlin MD [facility] CPT-42293 Level 3 Est. Patient 14:16:56 CHAINSTITCH SEAT JOINER Checo Conklin MD [facility] CPT-39771 Level 3 Est. Patient 11:04:11 CHAINSTITCH SEAT JOINER Checo Conklin MD [facility] CPT-83605 Level 3 Est. Patient 17:09:26 CDT Dangelo arroyo MD [facility] CPT-49516 Level 3 Est. Patient 16:54:37 CDT Checo Conklin MD [facility] Procedures Code Procedure Name Date Entry Date Standard Desc ription CPT-OV Office Visit 11:31:28 CDT CPT-63910 Tubersol 09:39:29 CDT CPT-J2550 Phenergan 25 mg (Promethazine) 13:59:02 CHAINSTITCH SEAT JOINER CPT-J1885 Toradol 60 mg (Ketorolac) 13:59:02 CHAINSTITCH SEAT JOINER 2012
--- OUTSIDE RECORDS SUMMARY | 2019-09-29 02:36 | XMS REPORT | Clinical Summary ---
Author Author Admin, Bethany Ayala [facility] Address Unknown Phone Unavailable Allergies, [...] 1 po qd x 4 days AZITHROMYCIN 57033020786 No Longer Active Checo Conklin MD Active HYDROCODONE-ACETAMINOPHEN 5-325 MG TABS 1 po q 6hr PRN Pain 2013 HYDROCODONE-ACETAMINOPHEN 20919945521 No Longer Active Lenora Conklin MD Active PHENAZOPYRIDINE HCL 200 MG TABS take 1 tab po TID for bladder pa in PHENAZOPYRIDINE HCL 06691814206 No Longer Active Checo Joshua Active CIPRO 500 MG TAB 1 tablet by mouth twice daily CIPROFLOXACIN HCL 63871023006 No Longer Active Dangelo Rangel MD Active HYDROCODONE-ACETAMINOPHEN 5-325 MG TABS 1/2 to 1 po q 4 hour s prn cough HYDROCODONE-ACETAMINOPHEN 71632975771 No Longer Activ e Dangelo Rangel MD Active BACTRIM DS 800-160 MG TABS 1 po BID x 7 days 0 SULFAMETHOXAZOLE-TRIMETHOPRIM 42308181416 No Longer Active Checo Conklin MD Active PREDNISONE 20 MG TAB 2 tabs daily for 3 days, 1 t ab daily for 3 days, 1/2 tab daily for 2 days PREDNISONE 90740351039 No Longer Active Checo Conklin MD Active TRIAMCINOLONE ACETONIDE 0.1 % OINT Apply to affected a reas TID for up to 2 weeks TRIAMCINOLONE ACETONIDE 97091125416 No Longer A ctive Checo Conklin MD Active CEFDINIR 300 MG CAPS by mouth twice a day CEFDI JAZZY 26298431876 No Longer Active Dangelo Rangel MD Active CELEXA 20 MG TABS 1 tablet by mouth daily CITAL OPRAM HYDROBROMIDE 16973165157 Active Checo Conklin MD Active BUPROPION HCL (SMOKING DETER) 150 MG [id number] 1 a day for 1 week then 1 twice a day BUPROPION HCL (SMOKING DETER) 80008411403 No Lo nger Active Checo Conklin MD Active SIMVASTATIN 20 MG TABS 1 po qd SIMVASTATIN 2689289087 5 Active Checo Conklin MD Active CHANTIX STARTING MONTH KARTHIK 0.5 MG X 11 & 1 MG X 42 TAB S 0.5mg daily for 3 days, then 0.5mg BID for 4 days, then 1mg BID VARENICLINE TARTRATE 12271992478 No Longer Active Checo Conklin MD Activ e XANAX 0.5 MG TABS 1 po BID PRN anxiety ALPRAZOLAM 09015956914 Active Jillina Frajoel [employer]STRUCTION INSPECTOR Active CONCERTA 18 MG CR-TABS 1 po q a.m. METHYLPHENID ATE HCL 52307576562 No Longer Active Checo Conklin MD Active REGLAN 10 MG TAB 1 po TID PRN Nausea METOCLOPRA MIDE HCL 16382937669 Active Checo Conklin MD Active AMBIEN 5 MG TAB 1 po qHS PRN Insomnia ZOLPIDEM TARTRATE 56074860211 Active Jillina Frazell [employer] CONSTRUCTION INSPECTOR Active TRAZODONE HCL 100 MG TAB 0.5 to 1 po qHS PRN Insomnia TRAZODONE HCL 67965671322 No Longer Active Checo Conklin MD Acti ve FIORICET 325-50-40 MG TAB 1 tablet by mouth four times daily as needed [id number] 21705767918 No Longer Active Checo Conklin MD Active PHENERGAN CREAM* 25mg applied to wrist q6hr PRN Nausea PHENERGAN CREAM* No Longer Active Checo Conklin MD A ctive LAMISIL 250 MG TAB 1 po qd TERBINAFINE HCL 7655916202 1 Active Checo Conklin MD Active FLONASE 50 MCG/ACT SUSP 1 spray each nostril am and hs FLUTICASONE PROPIONATE 99865526953 No Longer Active Checo Conklin MD Activ e ANTIPYRINE-BENZOCAINE 5.4-1.4 % SOLN 1-2 drops in affected ear BENZOCAINE-ANTIPYRINE 41770519944 No Longer Active Checo Conklin MD Active CEFDINIR 300 MG CAPS 1 po bid CEFDINIR 83387999 120 No Longer Active Checo Conklin MD Active PREDNISONE 20 MG TAB 2 tabs daily for 3 days, 1 t ab daily for 3 days, 1/2 tab daily for 2 days PREDNISONE 12698912009 No Longer Active Aracelis Conklin MD Active AZITHROMYCIN 250 MG TABS 2 po qd x 1 day, then 1 po qd x 4 days AZITHROMYCIN 91932768902 No Longer Active Checo Conklin MD Active PREDNISONE 20 MG TAB 2 tabs daily for 3 days, 1 t ab daily for 3 days, 1/2 tab daily for 2 days PREDNISONE 04439908578 No Longer Active Checo Conklin MD Active ZITHROMAX Z-KARTHIK 250 MG TABS 2 today, then 1 daily for 4 days 201 09/18/28 AZITHROMYCIN 47421384908 No Longer Active Paul Hamlin MD Active FOCALIN XR 10 MG [id number] 1 po q a.m. D EXMETHYLPHENIDATE HCL 91122928163 No Longer Active Paul Hamlin MD Activ e PERCOCET 10-325 MG TABS 1 tablet every 6 hours as needed for pain OXYCODONE-ACETAMINOPHEN 59906719480 No Longer Active Paul Hamlin MD Active LORTAB 5 5-500 MG TABS 1/2 to 1 tablet by mouth flaquito ry 4 hours as needed for pain HYDROCODONE-ACETAMINOPHEN 59009534749 No Longer Active Checo Conklin MD Active FOCALIN XR 15 MG [id number] 1 po q a.m. D EXMETHYLPHENIDATE HCL 05487314405 No Longer Active Checo Conklin MD Activ e ZOFRAN ODT 4 MG TBDP 1 po q6hr PRN Nausea ONDAN SETRON 79151010456 No Longer Active Checo Conklin MD Active PERCOCET 5-325 MG TABS 1 tablet by mouth every 6 hours as needed OXYCODONE-ACETAMINOPHEN 42652514478 No Longer Active Checo Conklin MD Active PYRIDIUM 200 MG TABS take 1 tab po TID prn urinary pain. 0 PHENAZOPYRIDINE HCL 86141055954 No Longer Active Checo Conklin MD Active FLUCONAZOLE 150 MG TABS take 1 tab po qday once 04/06 FLUCONAZOLE 91870873718 No Longer Active Dangelo Rangel MD Acti ve CIPRO 500 MG TAB 1 tablet by mouth twice daily CIPROFLOXACIN HCL 30990146959 No Longer Active Dangelo Rangel MD Active PYRIDIUM 200 MG TABS take 1 tab po TID prn urinary pain. 0 PYRIDIUM 200 MG TABS 1189534 PHENAZOPYRIDINE HCL Inactive PERCOCET 5-325 MG TABS 1 tablet by mouth every 6 hours as needed PERCOCET 5-325 MG TABS 3429874 OXYCODONE-ACETAMINOPHEN I nactive ZOFRAN ODT 4 MG TBDP 1 po q6hr PRN Nausea ZOFRAN ODT 4 MG TBDP 092286 ONDANSETRON Inactive FOCALIN XR 15 MG [id number] 1 po q a.m. F OCALIN XR 15 MG [id number] DEXMETHYLPHENIDATE HCL Inactive LORTAB 5 5-500 MG TABS 1/2 to 1 tablet by mouth flaquito ry 4 hours as needed for pain LORTAB 5 5-500 MG TABS HYDROCODONE-A CETAMINOPHEN Inactive PERCOCET 10-325 MG TABS 1 tablet every 6 hours as needed for pain PERCOCET 10-325 MG TABS 3875549 OXYCODONE-ACETAMINOPHEN Inactive FOCALIN XR 10 MG [id number] 1 po q a.m. F OCALIN XR 10 MG [id number] DEXMETHYLPHENIDATE HCL Inactive CEFDINIR 300 MG CAPS 1 po bid CEFDINIR 300 MG CAPS 20 0346 CEFDINIR Inactive ANTIPYRINE-BENZOCAINE 5.4-1.4 % SOLN 1-2 drops in affected ear ANTIPYRINE-BENZOCAINE 5.4-1.4 % SOLN 187676 BENZOCAINE-ANTIPYRINE I nactive FLONASE 50 MCG/ACT SUSP 1 spray each nostril am and hs FLONASE 50 MCG/ACT SUSP 435412 FLUTICASONE PROPIONATE Inactive PHENERGAN CREAM* 25mg applied to wrist q6hr PRN Nausea PHENERGAN CREAM* Inactive FIORICET 325-50-40 MG TAB 1 tablet by mouth four times daily as needed FIORICET 325-50-40 MG TAB ACETAMINOPHEN-C AFF-BUTALBITAL Inactive TRAZODONE HCL 100 MG TAB 0.5 to 1 po qHS PRN Insomnia TRAZODONE HCL 100 MG TAB 742335 TRAZODONE HCL Inactive CONCERTA 18 MG CR-TABS [...] s prn cough HYDROCODONE-ACETAMINOPHEN 5-325 MG TABS 331026 HYDROCODONE-ACETAMINOPHEN Inactive PHENAZOPYRIDINE HCL 200 MG TABS take 1 tab po TID for bladder pa in PHENAZOPYRIDINE HCL 200 MG TABS 1896425 PHENAZOPYRIDINE HCL Inactive HYDROCODONE-ACETAMINOPHEN 5-325 MG TABS 1 po q 6hr PRN Pain 2013 HYDROCODONE-ACETAMINOPHEN 5-325 MG TABS 243413 HYDROCODONE-ACETAMINOPHEN Inactive CIPRO 500 MG TAB 1 tablet by mouth twice daily CIPRO 500 MG TAB 451890 CIPROFLOXACIN HCL Inactive FLUCONAZOLE 150 MG TABS take 1 tab po qday once 04/06 FLUCONAZOLE 150 MG TABS 482487 FLUCONAZOLE Inactive ZITHROMAX Z-KARTHIK 250 MG TABS 2 today, then 1 daily for 4 days 201 09/18/28 ZITHROMAX Z-KARTHIK 250 MG TABS 0563764 AZITHROMYCIN Inac tive PREDNISONE 20 MG TAB 2 tabs daily for 3 days, 1 t ab daily for 3 days, 1/2 tab daily for 2 days PREDNISONE 20 MG TAB 583151 PREDNISON E Inactive AZITHROMYCIN 250 MG TABS 2 po qd x 1 day, then 1 po qd x 4 days AZITHROMYCIN 250 MG TABS 0106523 AZITHROMYCIN Inactiv e PREDNISONE 20 MG TAB 2 tabs daily for 3 days, 1 t ab daily for 3 days, 1/2 tab daily for 2 days PREDNISONE 20 MG TAB 507046 PREDNISON E Inactive CEFDINIR 300 MG CAPS by mouth twice a day CEFDINIR 300 MG CAPS 320705 CEFDINIR Inactive TRIAMCINOLONE ACETONIDE 0.1 % OINT Apply to affected a reas TID for up to 2 weeks TRIAMCINOLONE ACETONIDE 0.1 % OINT 496640 6 TRIAMCINOLONE ACETONIDE Inactive PREDNISONE 20 MG TAB 2 tabs daily for 3 days, 1 t ab daily for 3 days, 1/2 tab daily for 2 days PREDNISONE 20 MG TAB 783398 PREDNISON E Inactive BACTRIM DS 800-160 MG TABS 1 po BID x 7 days 0 BACTRIM DS 800-160 MG TABS SULFAMETHOXAZOLE-TRIMETHOPRIM Inactive CIPRO 500 MG TAB 1 tablet by mouth twice daily CIPRO 500 MG TAB 098539 CIPROFLOXACIN HCL Inactive AZITHROMYCIN 250 MG TABS 2 po qd x 1 day, then 1 po qd x 4 days AZITHROMYCIN 250 MG TABS 0608942 AZITHROMYCIN Inactiv e Immunizations Vaccine Administration Date [...] Panel - Chemistry sodium, serum 139 mmol/L 465-244 6945/10/24 potassium, serum 4.1 mmol/L 3.5-5.2 chloride, serum [...] 0.80 mg/dL 0.00-1.00 cholesterol, serum 147 mg/dL 880-773 0486/10/24 triglyceride, serum, fasting 112 mg/dL 30-200 HDL [...] 5.0-8.5 Encounters Code Encounter Date Provider Facility CPT-14574 Level 3 Est. Patient 15:22:03 HEAD CAGER Thomas reynolds DO [facility] CPT-84718 Level 3 Est. Patient 13:34:17 HEAD CAGER Checo Conklin MD [facility] CPT-89641 Level 3 Est. Patient 12:29:32 CDT Dangelo arroyo MD [facility] CPT-04054 Level 3 Est. Patient 16:53:02 CDT Checo Conklin MD [facility] CPT-70539 Level 3 Est. Patient 16:37:13 CDT Checo Conklin MD [facility] CPT-30572 Level 3 Est. Patient 16:16:59 CDT Paul Hamlin MD [facility] CPT-13037 Level 3 Est. Patient 14:20:13 CDT Dangelo arroyo MD [facility] CPT-94758 Level 4 Est. Patient 11:29:33 CDT Checo Conklin MD [facility] CPT-60665 Level 3 Est. Patient 17:08:31 CDT Checo Conklin MD [facility] CPT-67953 Level 3 Est. Patient 16:50:42 HEAD CAGER Checo Conklin MD [facility] CPT-88350 Level 4 Est. Patient 09:26:08 HEAD CAGER Checo Conklin MD [facility] CPT-38848 Level 3 Est. Patient 11:37:10 CDT Checo Conklin MD [facility] CPT-46787 Level 4 Est. Patient 14:07:38 CDT Checo Conklin MD [facility] CPT-44520 Level 3 Est. Patient 09:54:41 CDT Checo Conklin MD [facility] CPT-59159 Level 3 Est. Patient 11:10:54 CDT Paul Hamlin MD [facility] CPT-42010 Level 3 Est. Patient 14:16:56 HEAD CAGER Checo Conklin MD [facility] CPT-99252 Level 3 Est. Patient 11:04:11 HEAD CAGER Checo Conklin MD [facility] CPT-93758 Level 3 Est. Patient 17:09:26 CDT Dangelo arroyo MD [facility] CPT-58811 Level 3 Est. Patient 16:54:37 CDT Checo Conklin MD [facility] Procedures Code Procedure Name Date Entry Date Standard Desc ription CPT-OV Office Visit 11:31:28 CDT CPT-83575 Tubersol 09:39:29 CDT CPT-J2550 Phenergan 25 mg (Promethazine) 13:59:02 HEAD CAGER CPT-J1885 Toradol 60 mg (Ketorolac) 13:59:02 HEAD CAGER 2012
--- OUTSIDE RECORDS SUMMARY | 2019-09-29 02:37 | XMS REPORT | Clinical Summary ---
Author Author Admin, Bethany Ayala [facility] Address Unknown Phone Unavailable Allergies, Adverse [...] Inactive Checo Conklin MD Insomnia ICD-780.52 Inactive [facility] Joshua Mastalgia ICD-611.71 Inactive Checo Joshua Sinusitis ICD-461.9 Inactive Checo Conklin MD Insect bite ICD-919.4 Inactive Checo Conklin MD Medication List Medication Instructions Start Date Stop Date Generic Name NDC Status Provider Patient Instruction HYDROCODONE-ACETAMINOPHEN 5-325 MG TABS 1 po q 6hr PRN Pain HYDROCODONE-ACETAMINOPHEN 78778095235 Active Dangelo Rangel MD Active PHENAZOPYRIDINE HCL 200 MG TABS take 1 tab po TID for bladder pain PHENAZOPYRIDINE HCL 35006473478 Active Dangelo Rangel MD A ctive CIPRO 500 MG TAB 1 tablet by mouth twice daily CIPROFLOXACIN HCL 67574517689 Active Dangelo Rangel MD Act mike HYDROCODONE-ACETAMINOPHEN 5-325 MG TABS 1/2 to 1 po q 4 hour s prn cough HYDROCODONE-ACETAMINOPHEN 12496015655 No Longer Activ e Dangelo Rangel MD Active BACTRIM DS 800-160 MG TABS 1 po BID x 7 days 0 SULFAMETHOXAZOLE-TRIMETHOPRIM 65455866849 No Longer Active Checo Conklin MD Active PREDNISONE 20 MG TAB 2 tabs daily for 3 days, 1 t ab daily for 3 days, 1/2 tab daily for 2 days PREDNISONE 25194764688 No Longer Active Checo Conklin MD Active TRIAMCINOLONE ACETONIDE 0.1 % OINT Apply to affected a reas TID for up to 2 weeks TRIAMCINOLONE ACETONIDE 74691086180 No Longer A ctive Checo Conklin MD Active CEFDINIR 300 MG CAPS by mouth twice a day CEFDI JAZZY 54071329930 No Longer Active Dangelo Rangel MD Active CELEXA 20 MG TABS 1 tablet by mouth daily CITAL OPRAM HYDROBROMIDE 15554487743 Active Checo Conklin MD Active BUPROPION HCL (SMOKING DETER) 150 MG [id number] 1 a day for 1 week then 1 twice a day BUPROPION HCL (SMOKING DETER) 13814464987 No Lo nger Active Checo Conklin MD Active SIMVASTATIN 20 MG TABS 1 po qd SIMVASTATIN 6771879838 4 Active Checo Conklin MD Active CHANTIX STARTING MONTH KARTHIK 0.5 MG X 11 & 1 MG X 42 TAB S 0.5mg daily for 3 days, then 0.5mg BID for 4 days, then 1mg BID VARENICLINE TARTRATE 26897383391 No Longer Active Checo Conklin MD Activ e XANAX 0.5 MG TABS 1 po BID PRN anxiety ALPRAZOLAM 46753083836 Active Checo Conklin MD Active CONCERTA 18 MG CR-TABS 1 po q a.m. METHYLPHENID ATE HCL 85638370902 No Longer Active Checo Conklin MD Active REGLAN 10 MG TAB 1 po TID PRN Nausea METOCLOPRA MIDE HCL 24373048465 Active Checo Conklin MD Active AMBIEN 5 MG TAB 1 po qHS PRN Insomnia ZOLPIDEM TARTRATE 28391018224 Active Checo Conklin MD Active TRAZODONE HCL 100 MG TAB 0.5 to 1 po qHS PRN Insomnia TRAZODONE HCL 06438715992 No Longer Active Checo Conklin MD Acti ve FIORICET 325-50-40 MG TAB 1 tablet by mouth four times daily as needed [id number] 20236546569 No Longer Active Checo Conklin MD Active PHENERGAN CREAM* 25mg applied to wrist q6hr PRN Nausea PHENERGAN CREAM* No Longer Active Checo Conklin MD A ctive LAMISIL 250 MG TAB 1 po qd TERBINAFINE HCL 2492617398 1 Active Checo Conklin MD Active FLONASE 50 MCG/ACT SUSP 1 spray each nostril am and hs FLUTICASONE PROPIONATE 13633828809 No Longer Active Checo Conklin MD Activ e ANTIPYRINE-BENZOCAINE 5.4-1.4 % SOLN 1-2 drops in affected ear BENZOCAINE-ANTIPYRINE 76442807151 No Longer Active Checo Conklin MD Active CEFDINIR 300 MG CAPS 1 po bid CEFDINIR 41130090 120 No Longer Active Checo Conklin MD Active PREDNISONE 20 MG TAB 2 tabs daily for 3 days, 1 t ab daily for 3 days, 1/2 tab daily for 2 days PREDNISONE 14814855292 No Longer Active M greg Conklin MD Active AZITHROMYCIN 250 MG TABS 2 po qd x 1 day, then 1 po qd x 4 days AZITHROMYCIN 88417936725 No Longer Active Checo Conklin MD Active PREDNISONE 20 MG TAB 2 tabs daily for 3 days, 1 t ab daily for 3 days, 1/2 tab daily for 2 days PREDNISONE 01600803899 No Longer Active Checo Conklin MD Active ZITHROMAX Z-KARTHIK 250 MG TABS 2 today, then 1 daily for 4 days 201 09/18/28 AZITHROMYCIN 61845101495 No Longer Active Paul Hamlin MD Active FOCALIN XR 10 MG [id number] 1 po q a.m. D EXMETHYLPHENIDATE HCL 24228346883 No Longer Active Paul Hamlin MD Activ e PERCOCET 10-325 MG TABS 1 tablet every 6 hours as needed for pain OXYCODONE-ACETAMINOPHEN 03633256280 No Longer Active Paul Hamlin MD Active LORTAB 5 5-500 MG TABS 1/2 to 1 tablet by mouth flaquito ry 4 hours as needed for pain HYDROCODONE-ACETAMINOPHEN 87413011804 No Longer Active Checo Conklin MD Active FOCALIN XR 15 MG [id number] 1 po q a.m. D EXMETHYLPHENIDATE HCL 02729242801 No Longer Active Checo Conklin MD Activ e ZOFRAN ODT 4 MG TBDP 1 po q6hr PRN Nausea ONDAN SETRON 63665931354 No Longer Active Checo Conklin MD Active PERCOCET 5-325 MG TABS 1 tablet by mouth every 6 hours as needed OXYCODONE-ACETAMINOPHEN 03640527931 No Longer Active Checo Conklin MD Active PYRIDIUM 200 MG TABS take 1 tab po TID prn urinary pain. 0 PHENAZOPYRIDINE HCL 72153081455 No Longer Active Checo Conklin MD Active FLUCONAZOLE 150 MG TABS take 1 tab po qday once 04/06 FLUCONAZOLE 91396100337 No Longer Active Dangelo Rangel MD Acti ve CIPRO 500 MG TAB 1 tablet by mouth twice daily CIPROFLOXACIN HCL 43676879958 No Longer Active Dangelo Rangel MD Active PYRIDIUM 200 MG TABS take 1 tab po TID prn urinary pain. 0 PYRIDIUM 200 MG TABS 3379751 PHENAZOPYRIDINE HCL Inactive PERCOCET 5-325 MG TABS 1 tablet by mouth every 6 hours as needed PERCOCET 5-325 MG TABS 5683306 OXYCODONE-ACETAMINOPHEN I nactive ZOFRAN ODT 4 MG TBDP 1 po q6hr PRN Nausea ZOFRAN ODT 4 MG TBDP 103128 ONDANSETRON Inactive FOCALIN XR 15 MG [id number] 1 po q a.m. F OCALIN XR 15 MG [id number] DEXMETHYLPHENIDATE HCL Inactive LORTAB 5 5-500 MG TABS 1/2 to 1 tablet by mouth flaquito ry 4 hours as needed for pain LORTAB 5 5-500 MG TABS HYDROCODONE-A CETAMINOPHEN Inactive PERCOCET 10-325 MG TABS 1 tablet every 6 hours as needed for pain PERCOCET 10-325 MG TABS 5327822 OXYCODONE-ACETAMINOPHEN Inactive FOCALIN XR 10 MG [id number] 1 po q a.m. F OCALIN XR 10 MG [id number] DEXMETHYLPHENIDATE HCL Inactive CEFDINIR 300 MG CAPS 1 po bid CEFDINIR 300 MG CAPS 20 0346 CEFDINIR Inactive ANTIPYRINE-BENZOCAINE 5.4-1.4 % SOLN 1-2 drops in affected ear ANTIPYRINE-BENZOCAINE 5.4-1.4 % SOLN 162393 BENZOCAINE-ANTIPYRINE I nactive FLONASE 50 MCG/ACT SUSP 1 spray each nostril am and hs FLONASE 50 MCG/ACT SUSP 014132 FLUTICASONE PROPIONATE Inactive PHENERGAN CREAM* 25mg applied to wrist q6hr PRN Nausea PHENERGAN CREAM* Inactive FIORICET 325-50-40 MG TAB 1 tablet by mouth four times daily as needed FIORICET 325-50-40 MG TAB ACETAMINOPHEN-C AFF-BUTALBITAL Inactive TRAZODONE HCL 100 MG TAB 0.5 to 1 po qHS PRN Insomnia TRAZODONE HCL 100 MG TAB 665224 TRAZODONE HCL Inactive CONCERTA 18 MG CR-TABS [...] s prn cough HYDROCODONE-ACETAMINOPHEN 5-325 MG TABS 338812 HYDROCODONE-ACETAMINOPHEN Inactive CIPRO 500 MG TAB 1 tablet by mouth twice daily CIPRO 500 MG TAB 348749 CIPROFLOXACIN HCL Inactive FLUCONAZOLE 150 MG TABS take 1 tab po qday once 04/06 FLUCONAZOLE 150 MG TABS 768324 FLUCONAZOLE Inactive ZITHROMAX Z-KARTHIK 250 MG TABS 2 today, then 1 daily for 4 days 201 09/18/28 ZITHROMAX Z-KARTHIK 250 MG TABS 1768143 AZITHROMYCIN Inac tive PREDNISONE 20 MG TAB 2 tabs daily for 3 days, 1 t ab daily for 3 days, 1/2 tab daily for 2 days PREDNISONE 20 MG TAB 659660 PREDNISON E Inactive AZITHROMYCIN 250 MG TABS 2 po qd x 1 day, then 1 po qd x 4 days AZITHROMYCIN 250 MG TABS 8074460 AZITHROMYCIN Inactiv e PREDNISONE 20 MG TAB 2 tabs daily for 3 days, 1 t ab daily for 3 days, 1/2 tab daily for 2 days PREDNISONE 20 MG TAB 822773 PREDNISON E Inactive CEFDINIR 300 MG CAPS by mouth twice a day CEFDINIR 300 MG CAPS 084779 CEFDINIR Inactive TRIAMCINOLONE ACETONIDE 0.1 % OINT Apply to affected a reas TID for up to 2 weeks TRIAMCINOLONE ACETONIDE 0.1 % OINT 045556 6 TRIAMCINOLONE ACETONIDE Inactive PREDNISONE 20 MG TAB 2 tabs daily for 3 days, 1 t ab daily for 3 days, 1/2 tab daily for 2 days PREDNISONE 20 MG TAB 860742 PREDNISON E Inactive BACTRIM DS 800-160 MG [...] Panel - Chemistry sodium, serum 139 mmol/L 606-937 5120/10/24 potassium, serum 4.1 mmol/L 3.5-5.2 chloride, serum [...] 0.80 mg/dL 0.00-1.00 cholesterol, serum 147 mg/dL 441-245 3246/10/24 triglyceride, serum, fasting 112 mg/dL 30-200 HDL cholesterol, serum 40 mg/dL 32-96 LDL cholesterol, serum 85 mg/dL 0-130 Lab Report: HGBA1C, CBC W/DIFF, Comp. Me tabolic Panel, Lipid Panel - Chemistry sodium, serum 139 mmol/L 310-284 8300/01/09 potassium, serum 4.3 mmol/L 3.5-5.2 chloride, serum [...] 1.10 mg/dL 0.00-1.00 cholesterol, serum 222 mg/dL 608-007 8527/01/09 triglyceride, serum, fasting 92 mg/dL 30-200 HDL [...] Clear Encounters Code Encounter Date Provider Facility CPT-55431 Level 3 Est. Patient 12:29:32 CDT Dangelo arroyo MD [facility] CPT-46670 Level 3 Est. Patient 16:53:02 CDT Checo Conklin MD [facility] CPT-88448 Level 3 Est. Patient 16:37:13 CDT Checo Conklin MD [facility] CPT-32965 Level 3 Est. Patient 16:16:59 CDT Paul Hamlin MD [facility] CPT-24220 Level 3 Est. Patient 14:20:13 CDT Dangelo arryoo MD [facility] CPT-19226 Level 4 Est. Patient 11:29:33 CDT Checo Conklin MD [facility] CPT-58844 Level 3 Est. Patient 17:08:31 CDT Checo Conklin MD [facility] CPT-76785 Level 3 Est. 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 Patient 11:37:10 CDT Checo Conklin MD [facility] CPT-19390 Level 4 Est. Patient 14:07:38 CDT Checo Conklin MD [facility] CPT-91653 Level 3 Est. Patient 09:54:41 CDT Checo Conklin MD [facility] CPT-72351 Level 3 Est. Patient 11:10:54 CDT Paul Hamlni MD [facility] CPT-80339 Level 3 Est. 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 Patient 17:09:26 CDT Dangelo arroyo MD [facility] CPT-27596 Level 3 Est. Patient 16:54:37 CDT Checo Conklin MD [facility] Procedures Code Procedure Name Date Entry Date Standard Desc ription CPT-OV Office Visit 11:31:28 CDT CPT-79075 Tubersol 09:39:29 CDT CPT-J2550 Phenergan 25 mg (Promethazine) 13:59:02 PACKING LINE OPERATOR CPT-J1885 Toradol 60 mg (Ketorolac) 13:59:02 PACKING LINE OPERATOR 2012
--- OUTSIDE RECORDS SUMMARY | 2019-09-29 02:37 | XMS REPORT | Clinical Summary ---
Author Author Admin, Bethany Ayala [facility] Address Unknown Phone Unavailable Allergies, Adverse [...] q 4 hour s prn cough HYDROCODONE-ACETAMINOPHEN 76549108407 Active Paul montgomery MD Active CEFDINIR 300 MG CAPS by mouth twice a day CEFDI JAZZY 41765314393 Active Dangelo Rangel MD Active CELEXA 20 MG TABS 1 tablet by mouth daily CITAL OPRAM HYDROBROMIDE 56706506585 Active Checo Conklin MD Active BUPROPION HCL (SMOKING DETER) 150 MG [id number] 1 a day for 1 week then 1 twice a day BUPROPION HCL (SMOKING DETER) 87427455431 No Lo nger Active Checo Conklin MD Active SIMVASTATIN 20 MG TABS 1 po qd SIMVASTATIN 6218619185 4 Active Checo Conlkin MD Active CHANTIX STARTING MONTH KARTHIK 0.5 MG X 11 & 1 MG X 42 TAB S 0.5mg daily for 3 days, then 0.5mg BID for 4 days, then 1mg BID VARENICLINE TARTRATE 29074861519 No Longer Active Checo Conklin MD Activ e XANAX 0.5 MG TABS 1 po BID PRN anxiety ALPRAZOLAM 57052473706 Active Checo Conklin MD Active CONCERTA 18 MG CR-TABS 1 po q a.m. METHYLPHENID ATE HCL 96180051481 No Longer Active Checo Conklin MD Active REGLAN 10 MG TAB 1 po TID PRN Nausea METOCLOPRA MIDE HCL 19949015048 Active Checo Conklin MD Active AMBIEN 5 MG TAB 1 po qHS PRN Insomnia ZOLPIDEM TARTRATE 97446376298 Active Checo Conklin MD Active TRAZODONE HCL 100 MG TAB 0.5 to 1 po qHS PRN Insomnia TRAZODONE HCL 23550343318 No Longer Active Checo Conklin MD Acti ve FIORICET 325-50-40 MG TAB 1 tablet by mouth four times daily as needed [id number] 37777563826 No Longer Active Checo Conklin MD Active PHENERGAN CREAM* 25mg applied to wrist q6hr PRN Nausea PHENERGAN CREAM* No Longer Active Checo Conklin MD A ctive LAMISIL 250 MG TAB 1 po qd TERBINAFINE HCL 7143986535 1 Active Checo Conklin MD Active FLONASE 50 MCG/ACT SUSP 1 spray each nostril am and hs FLUTICASONE PROPIONATE 30066366950 No Longer Active Checo Conklin MD Activ e ANTIPYRINE-BENZOCAINE 5.4-1.4 % SOLN 1-2 drops in affected ear BENZOCAINE-ANTIPYRINE 36749602014 No Longer Active Checo Conklin MD Active CEFDINIR 300 MG CAPS 1 po bid CEFDINIR 44443797 120 No Longer Active Checo Conklin MD Active PREDNISONE 20 MG TAB 2 tabs daily for 3 days, 1 t ab daily for 3 days, 1/2 tab daily for 2 days PREDNISONE 38890636056 No Longer Active Aracelis Conklin MD Active AZITHROMYCIN 250 MG TABS 2 po qd x 1 day, then 1 po qd x 4 days AZITHROMYCIN 82774395193 No Longer Active Checo Conklin MD Active PREDNISONE 20 MG TAB 2 tabs daily for 3 days, 1 t ab daily for 3 days, 1/2 tab daily for 2 days PREDNISONE 42965737191 No Longer Active Checo Conklin MD Active ZITHROMAX Z-KARTHIK 250 MG TABS 2 today, then 1 daily for 4 days 201 09/18/28 AZITHROMYCIN 92778578536 No Longer Active Paul Hamlin MD Active FOCALIN XR 10 MG [id number] 1 po q a.m. D EXMETHYLPHENIDATE HCL 39088502556 No Longer Active Paul Hamlin MD Activ e PERCOCET 10-325 MG TABS 1 tablet every 6 hours as needed for pain OXYCODONE-ACETAMINOPHEN 89783422334 No Longer Active Paul Hamlin MD Active LORTAB 5 5-500 MG TABS 1/2 to 1 tablet by mouth flaquito ry 4 hours as needed for pain HYDROCODONE-ACETAMINOPHEN 89866860714 No Longer Active Checo Conklin MD Active FOCALIN XR 15 MG [id number] 1 po q a.m. D EXMETHYLPHENIDATE HCL 11397729659 No Longer Active Checo Conklin MD Activ e ZOFRAN ODT 4 MG TBDP 1 po q6hr PRN Nausea ONDAN SETRON 39152657968 No Longer Active Checo Conklin MD Active PERCOCET 5-325 MG TABS 1 tablet by mouth every 6 hours as needed OXYCODONE-ACETAMINOPHEN 79446541445 No Longer Active Checo Conklin MD Active PYRIDIUM 200 MG TABS take 1 tab po TID prn urinary pain. PHENAZOPYRIDINE HCL 29638630543 No Longer Active Checo Conklin MD Active FLUCONAZOLE 150 MG TABS take 1 tab po qday once 04/06 FLUCONAZOLE 43148406379 No Longer Active Dangelo Rangel MD Acti ve CIPRO 500 MG TAB 1 tablet by mouth twice daily CIPROFLOXACIN HCL 68103919693 No Longer Active Dangelo Rangel MD Active PYRIDIUM 200 MG TABS take 1 tab po TID prn urinary pain. 0 PYRIDIUM 200 MG TABS 4143591 PHENAZOPYRIDINE HCL Inactive PERCOCET 5-325 MG TABS 1 tablet by mouth every 6 hours as needed PERCOCET 5-325 MG TABS 3844980 OXYCODONE-ACETAMINOPHEN I nactive ZOFRAN ODT 4 MG TBDP 1 po q6hr PRN Nausea ZOFRAN ODT 4 MG TBDP 830221 ONDANSETRON Inactive FOCALIN XR 15 MG [id number] 1 po q a.m. F OCALIN XR 15 MG [id number] DEXMETHYLPHENIDATE HCL Inactive LORTAB 5 5-500 MG TABS 1/2 to 1 tablet by mouth flaquito ry 4 hours as needed for pain LORTAB 5 5-500 MG TABS HYDROCODONE-A CETAMINOPHEN Inactive PERCOCET 10-325 MG TABS 1 tablet every 6 hours as needed for pain PERCOCET 10-325 MG TABS 9652066 OXYCODONE-ACETAMINOPHEN Inactive FOCALIN XR 10 MG [id number] 1 po q a.m. F OCALIN XR 10 MG [id number] DEXMETHYLPHENIDATE HCL Inactive CEFDINIR 300 MG CAPS 1 po bid CEFDINIR 300 MG CAPS 20 0346 CEFDINIR Inactive ANTIPYRINE-BENZOCAINE 5.4-1.4 % SOLN 1-2 drops in affected ear ANTIPYRINE-BENZOCAINE 5.4-1.4 % SOLN 458606 BENZOCAINE-ANTIPYRINE I nactive FLONASE 50 MCG/ACT SUSP 1 spray each nostril am and hs FLONASE 50 MCG/ACT SUSP 840229 FLUTICASONE PROPIONATE Inactive PHENERGAN CREAM* 25mg applied to wrist q6hr PRN Nausea PHENERGAN CREAM* Inactive FIORICET 325-50-40 MG TAB 1 tablet by mouth four times daily as needed FIORICET 325-50-40 MG TAB ACETAMINOPHEN-C AFF-BUTALBITAL Inactive TRAZODONE HCL 100 MG TAB 0.5 to 1 po qHS PRN Insomnia TRAZODONE HCL 100 MG TAB 036270 TRAZODONE HCL Inactive CONCERTA 18 MG CR-TABS [...] mouth twice daily CIPRO 500 MG TAB 680988 CIPROFLOXACIN HCL Inactive FLUCONAZOLE 150 MG TABS take 1 tab po qday once 04/06 FLUCONAZOLE 150 MG TABS 416841 FLUCONAZOLE Inactive ZITHROMAX Z-KARTHIK 250 MG TABS 2 today, then 1 daily for 4 days 201 09/18/28 ZITHROMAX Z-KARTHIK 250 MG TABS 7810939 AZITHROMYCIN Inac tive PREDNISONE 20 MG TAB 2 tabs daily for 3 days, 1 t ab daily for 3 days, 1/2 tab daily for 2 days PREDNISONE 20 MG TAB 012685 PREDNISON E Inactive AZITHROMYCIN 250 MG TABS 2 po qd x 1 day, then 1 po qd x 4 days AZITHROMYCIN 250 MG TABS 0894498 AZITHROMYCIN Inactiv e PREDNISONE 20 MG TAB 2 tabs daily for 3 days, 1 t ab daily for 3 days, 1/2 tab daily for 2 days PREDNISONE 20 MG TAB 818575 PREDNISON E Inactive Immunizations Vaccine Administration Date [...] 5.3 % 4.3-6.0 sodium, serum 139 mmol/L 383-161 3770/01/09 potassium, serum 4.3 mmol/L 3.5-5.2 chloride, serum [...] 1.10 mg/dL 0.00-1.00 cholesterol, serum 222 mg/dL 533-065 2454/01/09 triglyceride, serum, fasting 92 mg/dL 30-200 HDL [...] 142-424 Encounters Code Encounter Date Provider Facility CPT-48619 Level 3 Est. Patient 16:16:59 CDT Paul Hamlin MD [facility] CPT-26329 Level 3 Est. Patient 14:20:13 CDT Dangelo arroyo MD [facility] CPT-35748 Level 4 Est. Patient 11:29:33 CDT Checo Conklin MD [facility] CPT-57520 Level 3 Est. Patient 17:08:31 CDT Checo Conklin MD [facility] CPT-22303 Level 3 Est. 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 Patient 11:37:10 CDT Checo Conklin MD [facility] CPT-70488 Level 4 Est. Patient 14:07:38 CDT Checo Conklin MD [facility] CPT-94582 Level 3 Est. Patient 09:54:41 CDT Checo Conklin MD [facility] CPT-57026 Level 3 Est. Patient 11:10:54 CDT Paul Hamlin MD [facility] CPT-20852 Level 3 Est. 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 Patient 17:09:26 CDT Dangelo arroyo MD [facility] CPT-67422 Level 3 Est. Patient 16:54:37 CDT Checo Conklin MD [facility] Procedures Code Procedure Name Date Entry Date Standard Desc ription CPT-OV Office Visit 11:31:28 CDT CPT-18232 Tubersol 09:39:29 CDT CPT-J2550 Phenergan 25 mg (Promethazine) 13:59:02 GASOLINE PUMP INSTALLER CPT-J1885 Toradol 60 mg (Ketorolac) 13:59:02 GASOLINE PUMP INSTALLER 2012
--- OUTSIDE RECORDS SUMMARY | 2019-09-29 02:37 | XMS REPORT | Clinical Summary ---
Author Author Admin, Bethany Ayala [facility] Address Unknown Phone [...] TABS 1 po BID PRN anxiety ALPRAZOLAM [id number] Active Paul Hamlin MD Active CHANTIX STARTING MONTH KARTHIK 0.5 MG X 11 & 1 MG X 42 TAB S 0.5mg daily for 3 days, then 0.5mg BID for 4 days, then 1mg BID VARENICL INE TARTRATE 21723491671 Active Checo Conklin MD Active CONCERTA 18 MG CR-TABS 1 po q a.m. METHYLPHENID ATE HCL 67268530469 No Longer Active Checo Conklin MD Active REGLAN 10 MG TAB 1 po TID PRN Nausea METOCLOPRA MIDE HCL 40634296448 Active Checo Conklin MD Active AMBIEN 5 MG TAB 1 po qHS PRN Insomnia ZOLPIDEM TARTRATE 94425177682 Active Paul Hamlin MD Active TRAZODONE HCL 100 MG TAB 0.5 to 1 po qHS PRN Insomnia TRAZODONE HCL 05766728824 No Longer Active Checo Conklin MD Acti ve FIORICET 325-50-40 MG TAB 1 tablet by mouth four times daily as needed [id number] 31314597790 No Longer Active Checo Conklin MD Active PHENERGAN CREAM* 25mg applied to wrist q6hr PRN Nausea PHENERGAN CREAM* No Longer Active Checo Conklin MD A ctive SIMVASTATIN 20 MG TABS 1 tab daily at bedtime S IMVASTATIN 55706277777 Active Checo Conklin MD Active LAMISIL 250 MG TAB 1 po qd TERBINAFINE HCL 4493587257 1 Active Checo Conklin MD Active FLONASE 50 MCG/ACT SUSP 1 spray each nostril am and hs FLUTICASONE PROPIONATE 82711080996 No Longer Active Checo Conklin MD Activ e ANTIPYRINE-BENZOCAINE 5.4-1.4 % SOLN 1-2 drops in affected ear BENZOCAINE-ANTIPYRINE 99225094355 No Longer Active Checo Conklin MD Active CEFDINIR 300 MG CAPS 1 po bid CEFDINIR 36735418 120 No Longer Active Checo Conklin MD Active PREDNISONE 20 MG TAB 2 tabs daily for 3 days, 1 t ab daily for 3 days, 1/2 tab daily for 2 days PREDNISONE 96883540102 No Longer Active Aracelis Conklin MD Active AZITHROMYCIN 250 MG TABS 2 po qd x 1 day, then 1 po qd x 4 days AZITHROMYCIN 36817558073 No Longer Active Checo Conklin MD Active PREDNISONE 20 MG TAB 2 tabs daily for 3 days, 1 t ab daily for 3 days, 1/2 tab daily for 2 days PREDNISONE 25658057505 No Longer Active Checo Conklin MD Active ZITHROMAX Z-KARTHIK 250 MG TABS 2 today, then 1 daily for 4 days 201 09/18/28 AZITHROMYCIN 99297462089 No Longer Active Paul Hamlin MD Active FOCALIN XR 10 MG [id number] 1 po q a.m. D EXMETHYLPHENIDATE HCL 17881608168 No Longer Active Paul Hamlin MD Activ e PERCOCET 10-325 MG TABS 1 tablet every 6 hours as needed for pain OXYCODONE-ACETAMINOPHEN 71489956507 No Longer Active Paul Hamlin MD Active LORTAB 5 5-500 MG TABS 1/2 to 1 tablet by mouth flaquito ry 4 hours as needed for pain HYDROCODONE-ACETAMINOPHEN 08921788367 No Longer Active Checo Conklin MD Active FOCALIN XR 15 MG [id number] 1 po q a.m. D EXMETHYLPHENIDATE HCL 16762215887 No Longer Active Checo Conklin MD Activ e ZOFRAN ODT 4 MG TBDP 1 po q6hr PRN Nausea ONDAN SETRON 79334846553 No Longer Active Checo Conklin MD Active PERCOCET 5-325 MG TABS 1 tablet by mouth every 6 hours as needed OXYCODONE-ACETAMINOPHEN 46752677899 No Longer Active Checo Conklin MD Active PYRIDIUM 200 MG TABS take 1 tab po TID prn urinary pain. 0 PHENAZOPYRIDINE HCL 24928217759 No Longer Active Checo Conklin MD Active FLUCONAZOLE 150 MG TABS take 1 tab po qday once 04/06 FLUCONAZOLE 69754365639 No Longer Active Dangelo Rangel MD Acti ve CIPRO 500 MG TAB 1 tablet by mouth twice daily CIPROFLOXACIN HCL 31432007608 No Longer Active Dangelo Rangel MD Active PYRIDIUM 200 MG TABS take 1 tab po TID prn urinary pain. 0 PYRIDIUM 200 MG TABS 5131252 PHENAZOPYRIDINE HCL Inactive PERCOCET 5-325 MG TABS 1 tablet by mouth every 6 hours as needed PERCOCET 5-325 MG TABS 0241746 OXYCODONE-ACETAMINOPHEN I nactive ZOFRAN ODT 4 MG TBDP 1 po q6hr PRN Nausea ZOFRAN ODT 4 MG TBDP 541430 ONDANSETRON Inactive FOCALIN XR 15 MG [id number] 1 po q a.m. F OCALIN XR 15 MG [id number] DEXMETHYLPHENIDATE HCL Inactive LORTAB 5 5-500 MG TABS 1/2 to 1 tablet by mouth flaquito ry 4 hours as needed for pain LORTAB 5 5-500 MG TABS HYDROCODONE-A CETAMINOPHEN Inactive PERCOCET 10-325 MG TABS 1 tablet every 6 hours as needed for pain PERCOCET 10-325 MG TABS 7199328 OXYCODONE-ACETAMINOPHEN Inactive FOCALIN XR 10 MG [id number] 1 po q a.m. F OCALIN XR 10 MG [id number] DEXMETHYLPHENIDATE HCL Inactive CEFDINIR 300 MG CAPS 1 po bid CEFDINIR 300 MG CAPS 20 0346 CEFDINIR Inactive ANTIPYRINE-BENZOCAINE 5.4-1.4 % SOLN 1-2 drops in affected ear ANTIPYRINE-BENZOCAINE 5.4-1.4 % SOLN 214349 BENZOCAINE-ANTIPYRINE I nactive FLONASE 50 MCG/ACT SUSP 1 spray each nostril am and hs FLONASE 50 MCG/ACT SUSP 766449 FLUTICASONE PROPIONATE Inactive PHENERGAN CREAM* 25mg applied to wrist q6hr PRN Nausea PHENERGAN CREAM* Inactive FIORICET 325-50-40 MG TAB 1 tablet by mouth four times daily as needed FIORICET 325-50-40 MG TAB ACETAMINOPHEN-C AFF-BUTALBITAL Inactive TRAZODONE HCL 100 MG TAB 0.5 to 1 po qHS PRN Insomnia TRAZODONE HCL 100 MG TAB 314559 TRAZODONE HCL Inactive CONCERTA 18 MG CR-TABS 1 po q a.m. CONCERTA 18 MG CR-TABS METHYLPHENIDATE HCL Inactive CIPRO 500 MG TAB 1 tablet by mouth twice daily CIPRO 500 MG TAB 579137 CIPROFLOXACIN HCL Inactive FLUCONAZOLE 150 MG TABS take 1 tab po qday once 04/06 FLUCONAZOLE 150 MG TABS 865548 FLUCONAZOLE Inactive ZITHROMAX Z-KARTHIK 250 MG TABS 2 today, then 1 daily for 4 days 201 09/18/28 ZITHROMAX Z-KARTHIK 250 MG TABS 7044553 AZITHROMYCIN Inac tive PREDNISONE 20 MG TAB 2 tabs daily for 3 days, 1 t ab daily for 3 days, 1/2 tab daily for 2 days PREDNISONE 20 MG TAB 179680 PREDNISON E Inactive AZITHROMYCIN 250 MG TABS 2 po qd x 1 day, then 1 po qd x 4 days AZITHROMYCIN 250 MG TABS 8332468 AZITHROMYCIN Inactiv e PREDNISONE 20 MG TAB 2 tabs daily for 3 days, 1 t ab daily for 3 days, 1/2 tab daily for 2 days PREDNISONE 20 MG TAB 797570 PREDNISON E Inactive Vital Signs Date Name [...] Panel - Chemistry sodium, serum 139 mmol/L 980-465 4882/01/09 potassium, serum 4.3 mmol/L 3.5-5.2 chloride, serum [...] 1.10 mg/dL 0.00-1.00 cholesterol, serum 222 mg/dL 419-327 6017/01/09 triglyceride, serum, fasting 92 mg/dL 30-200 HDL [...] 142-424 Encounters Code Encounter Date Provider Facility CPT-66211 Level 3 Est. Patient 17:08:31 CDT Checo Conklin MD [facility] CPT-07116 Level 3 Est. Patient 16:50:42 [employer] Checo Conklin MD [facility] CPT-35923 Level 4 Est. Patient 09:26:08 [employer] Checo Conklin MD [facility] CPT-12722 Level 3 Est. Patient 11:37:10 CDT Checo Conklin MD [facility] CPT-15055 Level 4 Est. Patient 14:07:38 CDT Checo Conklin MD [facility] CPT-34441 Level 3 Est. Patient 09:54:41 CDT Checo Conklin MD [facility] CPT-72758 Level 3 Est. Patient 11:10:54 CDT Paul Hamlin MD [facility] CPT-73555 Level 3 Est. Patient 14:16:56 [employer] Checo Conklin MD [facility] CPT-71394 Level 3 Est. Patient 11:04:11 [employer] Checo Conklin MD [facility] CPT-53569 Level 3 Est. Patient 17:09:26 CDT Dangelo arroyo MD [facility] CPT-12565 Level 3 Est. Patient 16:54:37 CDT Checo Conklin MD [facility] Procedures Code Procedure Name Date Entry Date Standard Desc ription CPT-J2550 Phenergan 25 mg (Promethazine) 13:59:02 [employer] CPT-J1885 Toradol 60 mg (Ketorolac) 13:59:02 [employer] 2012
--- OUTSIDE RECORDS SUMMARY | 2019-09-29 02:37 | XMS REPORT | Clinical Summary ---
[...] Johsua UTI ICD-599.0 Inactive Checo Conklin MD 2011 [...] po BID x 7 days 0 SULFAMETHOXAZOLE-TRIMETHOPRIM 22827768278 Active Checo Conklin MD Active PREDNISONE 20 MG TAB 2 tabs daily for 3 days, 1 t ab daily for 3 days, 1/2 tab daily for 2 days PREDNISONE 94499031915 No Longer Active Checo Conklin MD Active TRIAMCINOLONE ACETONIDE 0.1 % OINT Apply to affected a reas TID for up to 2 weeks TRIAMCINOLONE ACETONIDE 61873922655 Active Checo Conklin MD Active HYDROCODONE-ACETAMINOPHEN 5-325 MG TABS 1/2 to 1 po q 4 hour s prn cough HYDROCODONE-ACETAMINOPHEN 13027296615 Active Paul montgomery MD Active CEFDINIR 300 MG CAPS by mouth twice a day CEFDI JAZZY 03432288241 No Longer Active Dangleo Rangel MD Active CELEXA 20 MG TABS 1 tablet by mouth daily CITAL [place]PRAM HYDROBROMIDE 43911785821 Active Checo Conklin MD Active BUPROPION HCL (SMOKING DETER) 150 MG [id number] 1 a day for 1 week then 1 twice a day BUPROPION HCL (SMOKING DETER) 58830933092 No Lo nger Active Checo Conklin MD Active SIMVASTATIN 20 MG TABS 1 po qd SIMVASTATIN 0706306346 4 Active Checo Conklin MD Active CHANTIX STARTING MONTH KARTHIK 0.5 MG X 11 & 1 MG X 42 TAB S 0.5mg daily for 3 days, then 0.5mg BID for 4 days, then 1mg BID VARENICLINE TARTRATE 87019387337 No Longer Active Checo Conklin MD Activ e XANAX 0.5 MG TABS 1 po BID PRN anxiety ALPRAZOLAM 42811329005 Active Checo Conklin MD Active CONCERTA 18 MG CR-TABS 1 po q a.m. METHYLPHENID ATE HCL 77025698660 No Longer Active Checo Conklin MD Active REGLAN 10 MG TAB 1 po TID PRN Nausea METOCLOPRA MIDE HCL 28681445735 Active Checo Conklin MD Active AMBIEN 5 MG TAB 1 po qHS PRN Insomnia ZOLPIDEM TARTRATE 60647799787 Active Checo Conklin MD Active TRAZODONE HCL 100 MG TAB 0.5 to 1 po qHS PRN Insomnia TRAZODONE HCL 62514349638 No Longer Active Checo Conklin MD Acti ve FIORICET 325-50-40 MG TAB 1 tablet by mouth four times daily as needed [id number] 86088256805 No Longer Active Checo Conklin MD Active PHENERGAN CREAM* 25mg applied to wrist q6hr PRN Nausea PHENERGAN CREAM* No Longer Active Checo Conklin MD A ctive LAMISIL 250 MG TAB 1 po qd TERBINAFINE HCL 6931173901 1 Active Checo Conklin MD Active FLONASE 50 MCG/ACT SUSP 1 spray each nostril am and hs FLUTICASONE PROPIONATE 35129503824 No Longer Active Checo Conklin MD Activ e ANTIPYRINE-BENZOCAINE 5.4-1.4 % SOLN 1-2 drops in affected ear BENZOCAINE-ANTIPYRINE 52716545855 No Longer Active Checo Conklin MD Active CEFDINIR 300 MG CAPS 1 po bid CEFDINIR 54964483 120 No Longer Active Checo Conklin MD Active PREDNISONE 20 MG TAB 2 tabs daily for 3 days, 1 t ab daily for 3 days, 1/2 tab daily for 2 days PREDNISONE 44918171844 No Longer Active Aracelis Conklin MD Active AZITHROMYCIN 250 MG TABS 2 po qd x 1 day, then 1 po qd x 4 days AZITHROMYCIN 53727935734 No Longer Active Checo Conklin MD Active PREDNISONE 20 MG TAB 2 tabs daily for 3 days, 1 t ab daily for 3 days, 1/2 tab daily for 2 days PREDNISONE 99350632346 No Longer Active Checo Conklin MD Active ZITHROMAX Z-KARTHIK 250 MG TABS 2 today, then 1 daily for 4 days 201 09/18/28 AZITHROMYCIN 83665376632 No Longer Active Paul Hamlin MD Active FOCALIN XR 10 MG [id number] 1 po q a.m. D EXMETHYLPHENIDATE HCL 53853637647 No Longer Active Paul Hamlin MD Activ e PERCOCET 10-325 MG TABS 1 tablet every 6 hours as needed for pain OXYCODONE-ACETAMINOPHEN 90244786445 No Longer Active Paul Hamlin MD Active LORTAB 5 5-500 MG TABS 1/2 to 1 tablet by mouth flaquito ry 4 hours as needed for pain HYDROCODONE-ACETAMINOPHEN 88501709658 No Longer Active Checo Conklin MD Active FOCALIN XR 15 MG [id number] 1 po q a.m. D EXMETHYLPHENIDATE HCL 88799913150 No Longer Active Checo Conklin MD Activ e ZOFRAN ODT 4 MG TBDP 1 po q6hr PRN Nausea ONDAN SETRON 40293852970 No Longer Active Checo Conklin MD Active PERCOCET 5-325 MG TABS 1 tablet by mouth every 6 hours as needed OXYCODONE-ACETAMINOPHEN 12418065929 No Longer Active Checo Conklin MD Active PYRIDIUM 200 MG TABS take 1 tab po TID prn urinary pain. 0 PHENAZOPYRIDINE HCL 79809534885 No Longer Active Checo Conklin MD Active FLUCONAZOLE 150 MG TABS take 1 tab po qday once 04/06 FLUCONAZOLE 54803347576 No Longer Active Dangelo Rangel MD Acti ve CIPRO 500 MG TAB 1 tablet by mouth twice daily CIPROFLOXACIN HCL 33348779784 No Longer Active Dangelo Rangel MD Active PYRIDIUM 200 MG TABS take 1 tab po TID prn urinary pain. 0 PYRIDIUM 200 MG TABS 7097900 PHENAZOPYRIDINE HCL Inactive PERCOCET 5-325 MG TABS 1 tablet by mouth every 6 hours as needed PERCOCET 5-325 MG TABS 5689879 OXYCODONE-ACETAMINOPHEN I nactive ZOFRAN ODT 4 MG TBDP 1 po q6hr PRN Nausea ZOFRAN ODT 4 MG TBDP 307684 ONDANSETRON Inactive FOCALIN XR 15 MG [id number] 1 po q a.m. F OCALIN XR 15 MG [id number] DEXMETHYLPHENIDATE HCL Inactive LORTAB 5 5-500 MG TABS 1/2 to 1 tablet by mouth flaquito ry 4 hours as needed for pain LORTAB 5 5-500 MG TABS HYDROCODONE-A CETAMINOPHEN Inactive PERCOCET 10-325 MG TABS 1 tablet every 6 hours as needed for pain PERCOCET 10-325 MG TABS 7028944 OXYCODONE-ACETAMINOPHEN Inactive FOCALIN XR 10 MG [id number] 1 po q a.m. F OCALIN XR 10 MG [id number] DEXMETHYLPHENIDATE HCL Inactive CEFDINIR 300 MG CAPS 1 po bid CEFDINIR 300 MG CAPS 20 0346 CEFDINIR Inactive ANTIPYRINE-BENZOCAINE 5.4-1.4 % SOLN 1-2 drops in affected ear ANTIPYRINE-BENZOCAINE 5.4-1.4 % SOLN 216643 BENZOCAINE-ANTIPYRINE I nactive FLONASE 50 MCG/ACT SUSP 1 spray each nostril am and hs FLONASE 50 MCG/ACT SUSP 563854 FLUTICASONE PROPIONATE Inactive PHENERGAN CREAM* 25mg applied to wrist q6hr PRN Nausea PHENERGAN CREAM* Inactive FIORICET 325-50-40 MG TAB 1 tablet by mouth four times daily as needed FIORICET 325-50-40 MG TAB ACETAMINOPHEN-C AFF-BUTALBITAL Inactive TRAZODONE HCL 100 MG TAB 0.5 to 1 po qHS PRN Insomnia TRAZODONE HCL 100 MG TAB 587193 TRAZODONE HCL Inactive CONCERTA 18 MG CR-TABS [...] mouth twice daily CIPRO 500 MG TAB 823083 CIPROFLOXACIN HCL Inactive FLUCONAZOLE 150 MG TABS take 1 tab po qday once 04/06 FLUCONAZOLE 150 MG TABS 847713 FLUCONAZOLE Inactive ZITHROMAX Z-KARTHIK 250 MG TABS 2 today, then 1 daily for 4 days 201 09/18/28 ZITHROMAX Z-KARTHIK 250 MG TABS 0887181 AZITHROMYCIN Inac tive PREDNISONE 20 MG TAB 2 tabs daily for 3 days, 1 t ab daily for 3 days, 1/2 tab daily for 2 days PREDNISONE 20 MG TAB 471627 PREDNISON E Inactive AZITHROMYCIN 250 MG TABS 2 po qd x 1 day, then 1 po qd x 4 days AZITHROMYCIN 250 MG TABS 1198305 AZITHROMYCIN Inactiv e PREDNISONE 20 MG TAB 2 tabs daily for 3 days, 1 t ab daily for 3 days, 1/2 tab daily for 2 days PREDNISONE 20 MG TAB 455860 PREDNISON E Inactive CEFDINIR 300 MG CAPS by mouth twice a day CEFDINIR 300 MG CAPS 421664 CEFDINIR Inactive PREDNISONE 20 MG TAB 2 tabs daily for 3 days, 1 t ab daily for 3 days, 1/2 tab daily for 2 days PREDNISONE 20 MG TAB 234082 PREDNISON E Inactive Immunizations Vaccine Administration Date [...] 5.3 % 4.3-6.0 sodium, serum 139 mmol/L 445-766 1268/01/09 potassium, serum 4.3 mmol/L 3.5-5.2 chloride, serum [...] 1.10 mg/dL 0.00-1.00 cholesterol, serum 222 mg/dL 490-410 4783/01/09 triglyceride, serum, fasting 92 mg/dL 30-200 HDL [...] 142-424 Encounters Code Encounter Date Provider Facility CPT-06637 Level 3 Est. Patient 16:53:02 CDT Checo Conklin MD [facility] CPT-23473 Level 3 Est. Patient 16:37:13 CDT Checo Conklin MD [facility] CPT-15041 Level 3 Est. Patient 16:16:59 CDT Paul Hamlin MD [facility] CPT-75312 Level 3 Est. Patient 14:20:13 CDT Dangelo arroyo MD [facility] CPT-66531 Level 4 Est. Patient 11:29:33 CDT Checo Conklin MD [facility] CPT-46671 Level 3 Est. Patient 17:08:31 CDT Checo Conklin MD [facility] CPT-58097 Level 3 Est. Patient 16:50:42 PATIENT SUPPORT TECH Checo Conklin MD [facility] CPT-85498 Level 4 Est. Patient 09:26:08 PATIENT SUPPORT TECH Checo Conklin MD [facility] CPT-51376 Level 3 Est. Patient 11:37:10 CDT Checo Conklin MD [facility] CPT-77236 Level 4 Est. Patient 14:07:38 CDT Checo Conklin MD [facility] CPT-42622 Level 3 Est. Patient 09:54:41 CDT Checo Conklin MD [facility] CPT-64631 Level 3 Est. Patient 11:10:54 CDT Paul Hamlin MD [facility] CPT-60899 Level 3 Est. Patient 14:16:56 PATIENT SUPPORT TECH Chceo Conklin MD [facility] CPT-53967 Level 3 Est. Patient 11:04:11 PATIENT SUPPORT TECH Checo Conklin MD [facility] CPT-26780 Level 3 Est. Patient 17:09:26 CDT Dnagelo arroyo MD [facility] CPT-63682 Level 3 Est. Patient 16:54:37 CDT Checo Conklin MD [facility] Procedures Code Procedure Name Date Entry Date Standard Desc ription CPT-OV Office Visit 11:31:28 CDT CPT-87469 Tubersol 09:39:29 CDT CPT-J2550 Phenergan 25 mg (Promethazine) 13:59:02 PATIENT SUPPORT TECH CPT-J1885 Toradol 60 mg (Ketorolac) 13:59:02 PATIENT SUPPORT TECH 2012
--- OUTSIDE RECORDS SUMMARY | 2019-09-29 02:37 | XMS REPORT | Clinical Summary ---
Author Author Admin, Bethany Gonzales Organization [facility] Address Unknown Phone Unavailable Allergies, [...] ABDOMINAL PAIN RIGHT LOWER QUADRANT 789.03 Resolved Cheoc Conklin MD Abdominal pain, right lower quadrant [...] q 4 hour s prn cough HYDROCODONE-ACETAMINOPHEN 04939889354 Active Paul montgomery MD Active CEFDINIR 300 MG CAPS by mouth twice a day CEFDI JAZZY 78610721236 Active Dangelo Rangel MD Active CELEXA 20 MG TABS 1 tablet by mouth daily CITAL OPRAM HYDROBROMIDE 89920617327 Active Checo Conklin MD Active BUPROPION HCL (SMOKING DETER) 150 MG [id number] 1 a day for 1 week then 1 twice a day BUPROPION HCL (SMOKING DETER) 66647060674 No Lo nger Active Checo Conklin MD Active SIMVASTATIN 20 MG TABS 1 po qd SIMVASTATIN 8918231659 4 Active Checo Conklin MD Active CHANTIX STARTING MONTH KARTHIK 0.5 MG X 11 & 1 MG X 42 TAB S 0.5mg daily for 3 days, then 0.5mg BID for 4 days, then 1mg BID VARENICLINE TARTRATE 18822560587 No Longer Active Checo Conklin MD Activ e XANAX 0.5 MG TABS 1 po BID PRN anxiety ALPRAZOLAM 94404623971 Active Checo Conklin MD Active CONCERTA 18 MG CR-TABS 1 po q a.m. METHYLPHENID ATE HCL 94307618868 No Longer Active Checo Conklin MD Active REGLAN 10 MG TAB 1 po TID PRN Nausea METOCLOPRA MIDE HCL 22985523727 Active Checo Conklin MD Active AMBIEN 5 MG TAB 1 po qHS PRN Insomnia ZOLPIDEM TARTRATE 23171394605 Active Checo Conklin MD Active TRAZODONE HCL 100 MG TAB 0.5 to 1 po qHS PRN Insomnia TRAZODONE HCL 24329873759 No Longer Active Checo Conklin MD Acti ve FIORICET 325-50-40 MG TAB 1 tablet by mouth four times daily as needed [id number] 50652940043 No Longer Active Checo Conklin MD Active PHENERGAN CREAM* 25mg applied to wrist q6hr PRN Nausea PHENERGAN CREAM* No Longer Active Checo Conklin MD A ctive LAMISIL 250 MG TAB 1 po qd TERBINAFINE HCL 6235460640 1 Active Checo Conklin MD Active FLONASE 50 MCG/ACT SUSP 1 spray each nostril am and hs FLUTICASONE PROPIONATE 02453157752 No Longer Active Checo Conklin MD Activ e ANTIPYRINE-BENZOCAINE 5.4-1.4 % SOLN 1-2 drops in affected ear BENZOCAINE-ANTIPYRINE 97368725853 No Longer Active Checo oCnklin MD Active CEFDINIR 300 MG CAPS 1 po bid CEFDINIR 54008467 120 No Longer Active Checo Conklin MD Active PREDNISONE 20 MG TAB 2 tabs daily for 3 days, 1 t ab daily for 3 days, 1/2 tab daily for 2 days PREDNISONE 18202836994 No Longer Active Aracelis Conklin MD Active AZITHROMYCIN 250 MG TABS 2 po qd x 1 day, then 1 po qd x 4 days AZITHROMYCIN 46451704957 No Longer Active Checo Conklin MD Active PREDNISONE 20 MG TAB 2 tabs daily for 3 days, 1 t ab daily for 3 days, 1/2 tab daily for 2 days PREDNISONE 44206927939 No Longer Active Checo Conklin MD Active ZITHROMAX Z-KARTHIK 250 MG TABS 2 today, then 1 daily for 4 days 201 09/18/28 AZITHROMYCIN 70379027563 No Longer Active Paul Hamlin MD Active FOCALIN XR 10 MG [id number] 1 po q a.m. D EXMETHYLPHENIDATE HCL 79900506792 No Longer Active Paul Hamlin MD Activ e PERCOCET 10-325 MG TABS 1 tablet every 6 hours as needed for pain OXYCODONE-ACETAMINOPHEN 24547089657 No Longer Active Paul Hamlin MD Active LORTAB 5 5-500 MG TABS 1/2 to 1 tablet by mouth flaquito ry 4 hours as needed for pain HYDROCODONE-ACETAMINOPHEN 74988401199 No Longer Active Checo Conklin MD Active FOCALIN XR 15 MG [id number] 1 po q a.m. D EXMETHYLPHENIDATE HCL 14289634383 No Longer Active Checo Conklin MD Activ e ZOFRAN ODT 4 MG TBDP 1 po q6hr PRN Nausea ONDAN SETRON 59824100931 No Longer Active Checo Conklin MD Active PERCOCET 5-325 MG TABS 1 tablet by mouth every 6 hours as needed OXYCODONE-ACETAMINOPHEN 19394670214 No Longer Active Checo Conklin MD Active PYRIDIUM 200 MG TABS take 1 tab po TID prn urinary pain. 0 PHENAZOPYRIDINE HCL 99257526086 No Longer Active Checo Conklin MD Active FLUCONAZOLE 150 MG TABS take 1 tab po qday once 04/06 FLUCONAZOLE 45147959967 No Longer Active Dangelo Rangel MD Acti ve CIPRO 500 MG TAB 1 tablet by mouth twice daily CIPROFLOXACIN HCL 34145462846 No Longer Active Dangelo Rangel MD Active PYRIDIUM 200 MG TABS take 1 tab po TID prn urinary pain. 0 PYRIDIUM 200 MG TABS 5756404 PHENAZOPYRIDINE HCL Inactive PERCOCET 5-325 MG TABS 1 tablet by mouth every 6 hours as needed PERCOCET 5-325 MG TABS 6880062 OXYCODONE-ACETAMINOPHEN I nactive ZOFRAN ODT 4 MG TBDP 1 po q6hr PRN Nausea ZOFRAN ODT 4 MG TBDP 198144 ONDANSETRON Inactive FOCALIN XR 15 MG [id number] 1 po q a.m. F OCALIN XR 15 MG [id number] DEXMETHYLPHENIDATE HCL Inactive LORTAB 5 5-500 MG TABS 1/2 to 1 tablet by mouth flaquito ry 4 hours as needed for pain LORTAB 5 5-500 MG TABS HYDROCODONE-A CETAMINOPHEN Inactive PERCOCET 10-325 MG TABS 1 tablet every 6 hours as needed for pain PERCOCET 10-325 MG TABS 4780825 OXYCODONE-ACETAMINOPHEN Inactive FOCALIN XR 10 MG [id number] 1 po q a.m. F OCALIN XR 10 MG [id number] DEXMETHYLPHENIDATE HCL Inactive CEFDINIR 300 MG CAPS 1 po bid CEFDINIR 300 MG CAPS 20 0346 CEFDINIR Inactive ANTIPYRINE-BENZOCAINE 5.4-1.4 % SOLN 1-2 drops in affected ear ANTIPYRINE-BENZOCAINE 5.4-1.4 % SOLN 687025 BENZOCAINE-ANTIPYRINE I nactive FLONASE 50 MCG/ACT SUSP 1 spray each nostril am and hs FLONASE 50 MCG/ACT SUSP 297788 FLUTICASONE PROPIONATE Inactive PHENERGAN CREAM* 25mg applied to wrist q6hr PRN Nausea PHENERGAN CREAM* Inactive FIORICET 325-50-40 MG TAB 1 tablet by mouth four times daily as needed FIORICET 325-50-40 MG TAB ACETAMINOPHEN-C AFF-BUTALBITAL Inactive TRAZODONE HCL 100 MG TAB 0.5 to 1 po qHS PRN Insomnia TRAZODONE HCL 100 MG TAB 940479 TRAZODONE HCL Inactive CONCERTA 18 MG CR-TABS [...] mouth twice daily CIPRO 500 MG TAB 805661 CIPROFLOXACIN HCL Inactive FLUCONAZOLE 150 MG TABS take 1 tab po qday once 04/06 FLUCONAZOLE 150 MG TABS 610538 FLUCONAZOLE Inactive ZITHROMAX Z-KARTHIK 250 MG TABS 2 today, then 1 daily for 4 days 201 09/18/28 ZITHROMAX Z-KARTHIK 250 MG TABS 1589159 AZITHROMYCIN Inac tive PREDNISONE 20 MG TAB 2 tabs daily for 3 days, 1 t ab daily for 3 days, 1/2 tab daily for 2 days PREDNISONE 20 MG TAB 812669 PREDNISON E Inactive AZITHROMYCIN 250 MG TABS 2 po qd x 1 day, then 1 po qd x 4 days AZITHROMYCIN 250 MG TABS 3624106 AZITHROMYCIN Inactiv e PREDNISONE 20 MG TAB 2 tabs daily for 3 days, 1 t ab daily for 3 days, 1/2 tab daily for 2 days PREDNISONE 20 MG TAB 936001 PREDNISON E Inactive Immunizations Vaccine Administration Date [...] 5.3 % 4.3-6.0 sodium, serum 139 mmol/L 160-276 9765/01/09 potassium, serum 4.3 mmol/L 3.5-5.2 chloride, serum [...] 1.10 mg/dL 0.00-1.00 cholesterol, serum 222 mg/dL 328-231 1817/01/09 triglyceride, serum, fasting 92 mg/dL 30-200 HDL [...] 142-424 Encounters Code Encounter Date Provider Facility CPT-50797 Level 3 Est. Patient 16:16:59 CDT Paul Hamlin MD [facility] CPT-68266 Level 3 Est. Patient 14:20:13 CDT Dangelo arroyo MD [facility] CPT-70413 Level 4 Est. Patient 11:29:33 CDT Checo Conklin MD [facility] CPT-45932 Level 3 Est. Patient 17:08:31 CDT Checo Conklin MD [facility] CPT-67618 Level 3 Est. Patient 16:50:42 EYEWEAR CONSULTANT Checo Conklin MD [facility] CPT-86340 Level 4 Est. Patient 09:26:08 EYEWEAR CONSULTANT Checo Conklin MD [facility] CPT-06767 Level 3 Est. Patient 11:37:10 CDT Checo Conklin MD [facility] CPT-68395 Level 4 Est. Patient 14:07:38 CDT Checo Conklin MD [facility] CPT-42980 Level 3 Est. Patient 09:54:41 CDT Checo Conklin MD [facility] CPT-08968 Level 3 Est. Patient 11:10:54 CDT Paul Hamlin MD [facility] CPT-47010 Level 3 Est. Patient 14:16:56 EYEWEAR CONSULTANT Checo Conklin MD [facility] CPT-04311 Level 3 Est. Patient 11:04:11 EYEWEAR CONSULTANT Checo Conklin MD [facility] CPT-39835 Level 3 Est. Patient 17:09:26 CDT Dangelo arroyo MD [facility] CPT-83734 Level 3 Est. Patient 16:54:37 CDT Checo Conklin MD [facility] Procedures Code Procedure Name Date Entry Date Standard Desc ription CPT-OV Office Visit 11:31:28 CDT CPT-26667 Tubersol 09:39:29 CDT CPT-J2550 Phenergan 25 mg (Promethazine) 13:59:02 EYEWEAR CONSULTANT CPT-J1885 Toradol 60 mg (Ketorolac) 13:59:02 EYEWEAR CONSULTANT 2012
--- OUTSIDE RECORDS SUMMARY | 2019-09-29 02:38 | XMS REPORT | Clinical Summary ---
[...] 1 po q 6hr PRN Pain HYDROCODONE-ACETAMINOPHEN 72662504002 Active Dangelo Rangel MD Active PHENAZOPYRIDINE HCL 200 MG TABS take 1 tab po TID for bladder pain PHENAZOPYRIDINE HCL 59376336129 Active Dangelo Rangel MD A ctive CIPRO 500 MG TAB 1 tablet by mouth twice daily CIPROFLOXACIN HCL 63440136878 No Longer Active Dangelo Rangel MD Active HYDROCODONE-ACETAMINOPHEN 5-325 MG TABS 1/2 to 1 po q 4 hour s prn cough HYDROCODONE-ACETAMINOPHEN 05618830513 No Longer Activ e Dangelo Rangel MD Active BACTRIM DS 800-160 MG TABS 1 po BID x 7 days 0 SULFAMETHOXAZOLE-TRIMETHOPRIM 93345726404 No Longer Active Checo Conklin MD Active PREDNISONE 20 MG TAB 2 tabs daily for 3 days, 1 t ab daily for 3 days, 1/2 tab daily for 2 days PREDNISONE 37377867765 No Longer Active Checo Conklin MD Active TRIAMCINOLONE ACETONIDE 0.1 % OINT Apply to affected a reas TID for up to 2 weeks TRIAMCINOLONE ACETONIDE 78495533939 No Longer A ctive Checo Conklin MD Active CEFDINIR 300 MG CAPS by mouth twice a day CEFDI JAZZY 27340620044 No Longer Active Dangelo Rangel MD Active CELEXA 20 MG TABS 1 tablet by mouth daily CITAL OPRAM HYDROBROMIDE 99957108976 Active Checo Conklin MD Active BUPROPION HCL (SMOKING DETER) 150 MG [id number] 1 a day for 1 week then 1 twice a day BUPROPION HCL (SMOKING DETER) 03063458778 No Lo nger Active Checo Conklin MD Active SIMVASTATIN 20 MG TABS 1 po qd SIMVASTATIN 2657553272 4 Active Checo Conklin MD Active CHANTIX STARTING MONTH KARTHIK 0.5 MG X 11 & 1 MG X 42 TAB S 0.5mg daily for 3 days, then 0.5mg BID for 4 days, then 1mg BID VARENICLINE TARTRATE 21659905876 No Longer Active Checo Conklin MD Activ e XANAX 0.5 MG TABS 1 po BID PRN anxiety ALPRAZOLAM 10471502745 Active Checo Conklin MD Active CONCERTA 18 MG CR-TABS 1 po q a.m. METHYLPHENID ATE HCL 60028063512 No Longer Active Checo Conklin MD Active REGLAN 10 MG TAB 1 po TID PRN Nausea METOCLOPRA MIDE HCL 25715123602 Active Checo Conklin MD Active AMBIEN 5 MG TAB 1 po qHS PRN Insomnia ZOLPIDEM TARTRATE 77574943918 Active Checo Conklin MD Active TRAZODONE HCL 100 MG TAB 0.5 to 1 po qHS PRN Insomnia TRAZODONE HCL 94191904511 No Longer Active Checo Conklin MD Acti ve FIORICET 325-50-40 MG TAB 1 tablet by mouth four times daily as needed [id number] 35023452438 No Longer Active Checo Conklin MD Active PHENERGAN CREAM* 25mg applied to wrist q6hr PRN Nausea PHENERGAN CREAM* No Longer Active Checo Conklin MD A ctive LAMISIL 250 MG TAB 1 po qd TERBINAFINE HCL 8694912459 1 Active Checo Conklin MD Active FLONASE 50 MCG/ACT SUSP 1 spray each nostril am and hs FLUTICASONE PROPIONATE 30142676159 No Longer Active Checo Conklin MD Activ e ANTIPYRINE-BENZOCAINE 5.4-1.4 % SOLN 1-2 drops in affected ear BENZOCAINE-ANTIPYRINE 12746388761 No Longer Active Checo Conklin MD Active CEFDINIR 300 MG CAPS 1 po bid CEFDINIR 39710355 120 No Longer Active Checo Conklin MD Active PREDNISONE 20 MG TAB 2 tabs daily for 3 days, 1 t ab daily for 3 days, 1/2 tab daily for 2 days PREDNISONE 44151249599 No Longer Active M greg Conklin MD Active AZITHROMYCIN 250 MG TABS 2 po qd x 1 day, then 1 po qd x 4 days AZITHROMYCIN 58654462256 No Longer Active Checo Conklin MD Active PREDNISONE 20 MG TAB 2 tabs daily for 3 days, 1 t ab daily for 3 days, 1/2 tab daily for 2 days PREDNISONE 72200336807 No Longer Active Checo Conklin MD Active ZITHROMAX Z-KARTHIK 250 MG TABS 2 today, then 1 daily for 4 days 201 09/18/28 AZITHROMYCIN 01321382122 No Longer Active Paul Hamlin MD Active FOCALIN XR 10 MG [id number] 1 po q a.m. D EXMETHYLPHENIDATE HCL 77351167839 No Longer Active Paul Hamlin MD Activ e PERCOCET 10-325 MG TABS 1 tablet every 6 hours as needed for pain OXYCODONE-ACETAMINOPHEN 68277687095 No Longer Active Paul Hamlin MD Active LORTAB 5 5-500 MG TABS 1/2 to 1 tablet by mouth flaquito ry 4 hours as needed for pain HYDROCODONE-ACETAMINOPHEN 74162338405 No Longer Active Checo Conklin MD Active FOCALIN XR 15 MG [id number] 1 po q a.m. D EXMETHYLPHENIDATE HCL 54963600568 No Longer Active Checo Conklin MD Activ e ZOFRAN ODT 4 MG TBDP 1 po q6hr PRN Nausea ONDAN SETRON 43403267190 No Longer Active Checo Conklin MD Active PERCOCET 5-325 MG TABS 1 tablet by mouth every 6 hours as needed OXYCODONE-ACETAMINOPHEN 25397963622 No Longer Active Checo Conklin MD Active PYRIDIUM 200 MG TABS take 1 tab po TID prn urinary pain. 0 PHENAZOPYRIDINE HCL 42959286485 No Longer Active Checo Conklin MD Active FLUCONAZOLE 150 MG TABS take 1 tab po qday once 04/06 FLUCONAZOLE 40638633033 No Longer Active Dangelo Rangel MD Acti ve CIPRO 500 MG TAB 1 tablet by mouth twice daily CIPROFLOXACIN HCL 65471191505 No Longer Active Dangelo Rangel MD Active PYRIDIUM 200 MG TABS take 1 tab po TID prn urinary pain. 0 PYRIDIUM 200 MG TABS 4782790 PHENAZOPYRIDINE HCL Inactive PERCOCET 5-325 MG TABS 1 tablet by mouth every 6 hours as needed PERCOCET 5-325 MG TABS 1326188 OXYCODONE-ACETAMINOPHEN I nactive ZOFRAN ODT 4 MG TBDP 1 po q6hr PRN Nausea ZOFRAN ODT 4 MG TBDP 759150 ONDANSETRON Inactive FOCALIN XR 15 MG [id number] 1 po q a.m. F OCALIN XR 15 MG [id number] DEXMETHYLPHENIDATE HCL Inactive LORTAB 5 5-500 MG TABS 1/2 to 1 tablet by mouth flaquito ry 4 hours as needed for pain LORTAB 5 5-500 MG TABS HYDROCODONE-A CETAMINOPHEN Inactive PERCOCET 10-325 MG TABS 1 tablet every 6 hours as needed for pain PERCOCET 10-325 MG TABS 1251806 OXYCODONE-ACETAMINOPHEN Inactive FOCALIN XR 10 MG [id number] 1 po q a.m. F OCALIN XR 10 MG [id number] DEXMETHYLPHENIDATE HCL Inactive CEFDINIR 300 MG CAPS 1 po bid CEFDINIR 300 MG CAPS 20 0346 CEFDINIR Inactive ANTIPYRINE-BENZOCAINE 5.4-1.4 % SOLN 1-2 drops in affected ear ANTIPYRINE-BENZOCAINE 5.4-1.4 % SOLN 333336 BENZOCAINE-ANTIPYRINE I nactive FLONASE 50 MCG/ACT SUSP 1 spray each nostril am and hs FLONASE 50 MCG/ACT SUSP 422170 FLUTICASONE PROPIONATE Inactive PHENERGAN CREAM* 25mg applied to wrist q6hr PRN Nausea PHENERGAN CREAM* Inactive FIORICET 325-50-40 MG TAB 1 tablet by mouth four times daily as needed FIORICET 325-50-40 MG TAB ACETAMINOPHEN-C AFF-BUTALBITAL Inactive TRAZODONE HCL 100 MG TAB 0.5 to 1 po qHS PRN Insomnia TRAZODONE HCL 100 MG TAB 162664 TRAZODONE HCL Inactive CONCERTA 18 MG CR-TABS [...] s prn cough HYDROCODONE-ACETAMINOPHEN 5-325 MG TABS 905493 HYDROCODONE-ACETAMINOPHEN Inactive CIPRO 500 MG TAB 1 tablet by mouth twice daily CIPRO 500 MG TAB 609936 CIPROFLOXACIN HCL Inactive FLUCONAZOLE 150 MG TABS take 1 tab po qday once 04/06 FLUCONAZOLE 150 MG TABS 145298 FLUCONAZOLE Inactive ZITHROMAX Z-KARTHIK 250 MG TABS 2 today, then 1 daily for 4 days 201 09/18/28 ZITHROMAX Z-KARTHIK 250 MG TABS 6753643 AZITHROMYCIN Inac tive PREDNISONE 20 MG TAB 2 tabs daily for 3 days, 1 t ab daily for 3 days, 1/2 tab daily for 2 days PREDNISONE 20 MG TAB 977310 PREDNISON E Inactive AZITHROMYCIN 250 MG TABS 2 po qd x 1 day, then 1 po qd x 4 days AZITHROMYCIN 250 MG TABS 9451461 AZITHROMYCIN Inactiv e PREDNISONE 20 MG TAB 2 tabs daily for 3 days, 1 t ab daily for 3 days, 1/2 tab daily for 2 days PREDNISONE 20 MG TAB 920019 PREDNISON E Inactive CEFDINIR 300 MG CAPS by mouth twice a day CEFDINIR 300 MG CAPS 039279 CEFDINIR Inactive TRIAMCINOLONE ACETONIDE 0.1 % OINT Apply to affected a reas TID for up to 2 weeks TRIAMCINOLONE ACETONIDE 0.1 % OINT 574993 6 TRIAMCINOLONE ACETONIDE Inactive PREDNISONE 20 MG TAB 2 tabs daily for 3 days, 1 t ab daily for 3 days, 1/2 tab daily for 2 days PREDNISONE 20 MG TAB 072110 PREDNISON E Inactive BACTRIM DS 800-160 MG TABS 1 po BID x 7 days 0 BACTRIM DS 800-160 MG TABS SULFAMETHOXAZOLE-TRIMETHOPRIM Inactive CIPRO 500 MG TAB 1 tablet by mouth twice daily CIPRO 500 MG TAB 169391 CIPROFLOXACIN HCL Inactive Immunizations Vaccine Administration Date [...] Panel - Chemistry sodium, serum 139 mmol/L 389-474 2775/10/24 potassium, serum 4.1 mmol/L 3.5-5.2 chloride, serum [...] 0.80 mg/dL 0.00-1.00 cholesterol, serum 147 mg/dL 748-562 6159/10/24 triglyceride, serum, fasting 112 mg/dL 30-200 HDL cholesterol, serum 40 mg/dL 32-96 LDL cholesterol, serum 85 mg/dL 0-130 Lab Report: HGBA1C, CBC W/DIFF, Comp. Me tabolic Panel, Lipid Panel - Chemistry sodium, serum 139 mmol/L 416-812 4541/01/09 potassium, serum 4.3 mmol/L 3.5-5.2 chloride, serum [...] 1.10 mg/dL 0.00-1.00 cholesterol, serum 222 mg/dL 360-564 1228/01/09 triglyceride, serum, fasting 92 mg/dL 30-200 HDL [...] Clear Encounters Code Encounter Date Provider Facility CPT-45159 Level 3 Est. Patient 12:29:32 CDT Dangelo arroyo MD [facility] CPT-99319 Level 3 Est. Patient 16:53:02 CDT Checo Conklin MD [facility] CPT-75550 Level 3 Est. Patient 16:37:13 CDT Checo Conklin MD [facility] CPT-99153 Level 3 Est. Patient 16:16:59 CDT Paul Hamlin MD [facility] CPT-67227 Level 3 Est. Patient 14:20:13 CDT Dangelo arroyo MD [facility] CPT-76523 Level 4 Est. Patient 11:29:33 CDT Checo Conklin MD [facility] CPT-36333 Level 3 Est. Patient 17:08:31 CDT Checo Conklin MD [facility] CPT-27373 Level 3 Est. Patient 16:50:42 HAT BODY INSPECTOR Checo Conklin MD [facility] CPT-63070 Level 4 Est. Patient 09:26:08 HAT BODY INSPECTOR Checo Conklin MD [facility] CPT-79697 Level 3 Est. Patient 11:37:10 CDT Checo Conklin MD [facility] CPT-68781 Level 4 Est. Patient 14:07:38 CDT Checo Conklin MD [facility] CPT-82564 Level 3 Est. Patient 09:54:41 CDT Checo Conklin MD [facility] CPT-48868 Level 3 Est. Patient 11:10:54 CDT Paul Hamlin MD [facility] CPT-82631 Level 3 Est. Patient 14:16:56 HAT BODY INSPECTOR Checo Conklin MD [facility] CPT-37258 Level 3 Est. Patient 11:04:11 HAT BODY INSPECTOR Checo Conklin MD [facility] CPT-31366 Level 3 Est. Patient 17:09:26 CDT Dangelo arroyo MD [facility] CPT-91846 Level 3 Est. Patient 16:54:37 CDT Checo Conklin MD [facility] Procedures Code Procedure Name Date Entry Date Standard Desc ription CPT-OV Office Visit 11:31:28 CDT CPT-62194 Tubersol 09:39:29 CDT CPT-J2550 Phenergan 25 mg (Promethazine) 13:59:02 HAT BODY INSPECTOR CPT-J1885 Toradol 60 mg (Ketorolac) 13:59:02 HAT BODY INSPECTOR 2012
--- OUTSIDE RECORDS SUMMARY | 2019-09-29 02:38 | XMS REPORT | Clinical Summary ---
[...] migrainosus Breast mass, right 611.72 Resolved Checo richye MD Lump or mass in breast Breast [...] Inactive Checo Joshua Sinusitis ICD-461.9 Inactive Checo Cnoklin MD Insect bite ICD-919.4 Inactive Checo Conklin MD Carbuncle/furuncle NOS ICD-680.9 Inactive Hilaria Conklin MD Medication List Medication Instructions Start Date Stop Date Generic Name NDC Status Provider Patient Instruction AZITHROMYCIN 250 MG TABS 2 po qd x 1 day, then 1 po qd x 4 days AZITHROMYCIN 36770234681 No Longer Active Checo Conklin MD Active HYDROCODONE-ACETAMINOPHEN 5-325 MG TABS 1 po q 6hr PRN Pain 2013 HYDROCODONE-ACETAMINOPHEN 09766960576 No Longer Active Lenora Conklin MD Active PHENAZOPYRIDINE HCL 200 MG TABS take 1 tab po TID for bladder pa in PHENAZOPYRIDINE HCL 86756425400 No Longer Active Checo Joshua Active CIPRO 500 MG TAB 1 tablet by mouth twice daily CIPROFLOXACIN HCL 58711048905 No Longer Active Dangelo Rangel MD Active HYDROCODONE-ACETAMINOPHEN 5-325 MG TABS 1/2 to 1 po q 4 hour s prn cough HYDROCODONE-ACETAMINOPHEN 23784469008 No Longer Activ e Dangelo Rangel MD Active BACTRIM DS 800-160 MG TABS 1 po BID x 7 days 0 SULFAMETHOXAZOLE-TRIMETHOPRIM 74114845531 No Longer Active Checo Conklin MD Active PREDNISONE 20 MG TAB 2 tabs daily for 3 days, 1 t ab daily for 3 days, 1/2 tab daily for 2 days PREDNISONE 57815973767 No Longer Active Checo Conklin MD Active TRIAMCINOLONE ACETONIDE 0.1 % OINT Apply to affected a reas TID for up to 2 weeks TRIAMCINOLONE ACETONIDE 46278072910 No Longer A ctive Checo Conklin MD Active CEFDINIR 300 MG CAPS by mouth twice a day CEFDI JAZZY 21494172486 No Longer Active Dangelo Rangel MD Active CELEXA 20 MG TABS 1 tablet by mouth daily CITAL OPRAM HYDROBROMIDE 58861514669 Active Checo Conklin MD Active BUPROPION HCL (SMOKING DETER) 150 MG [id number] 1 a day for 1 week then 1 twice a day BUPROPION HCL (SMOKING DETER) 32867814272 No Lo nger Active Checo Conklin MD Active SIMVASTATIN 20 MG TABS 1 po qd SIMVASTATIN 7354952845 5 Active Checo Conklin MD Active CHANTIX STARTING MONTH KARTHIK 0.5 MG X 11 & 1 MG X 42 TAB S 0.5mg daily for 3 days, then 0.5mg BID for 4 days, then 1mg BID VARENICLINE TARTRATE 00493193282 No Longer Active Checo Conklin MD Activ e XANAX 0.5 MG TABS 1 po BID PRN anxiety ALPRAZOLAM 37137080917 Active Checo Conklin MD Active CONCERTA 18 MG CR-TABS 1 po q a.m. METHYLPHENID ATE HCL 40234884605 No Longer Active Checo Conklin MD Active REGLAN 10 MG TAB 1 po TID PRN Nausea METOCLOPRA MIDE HCL 87139356701 Active Checo Conklin MD Active AMBIEN 5 MG TAB 1 po qHS PRN Insomnia ZOLPIDEM TARTRATE 02545122257 Active Checo Conklin MD Active TRAZODONE HCL 100 MG TAB 0.5 to 1 po qHS PRN Insomnia TRAZODONE HCL 38674742642 No Longer Active Checo Conklin MD Acti ve FIORICET 325-50-40 MG TAB 1 tablet by mouth four times daily as needed [id number] 18146161856 No Longer Active Checo Conklin MD Active PHENERGAN CREAM* 25mg applied to wrist q6hr PRN Nausea PHENERGAN CREAM* No Longer Active Checo Conklin MD A ctive LAMISIL 250 MG TAB 1 po qd TERBINAFINE HCL 4522269417 1 Active Checo Conklin MD Active FLONASE 50 MCG/ACT SUSP 1 spray each nostril am and hs FLUTICASONE PROPIONATE 92527595000 No Longer Active Checo Conklin MD Activ e ANTIPYRINE-BENZOCAINE 5.4-1.4 % SOLN 1-2 drops in affected ear BENZOCAINE-ANTIPYRINE 18449341420 No Longer Active Checo Conklin MD Active CEFDINIR 300 MG CAPS 1 po bid CEFDINIR 80868763 120 No Longer Active Checo Conklin MD Active PREDNISONE 20 MG TAB 2 tabs daily for 3 days, 1 t ab daily for 3 days, 1/2 tab daily for 2 days PREDNISONE 94784034453 No Longer Active Aracelis Conklin MD Active AZITHROMYCIN 250 MG TABS 2 po qd x 1 day, then 1 po qd x 4 days AZITHROMYCIN 75026137482 No Longer Active Checo Conklin MD Active PREDNISONE 20 MG TAB 2 tabs daily for 3 days, 1 t ab daily for 3 days, 1/2 tab daily for 2 days PREDNISONE 34646452011 No Longer Active Checo Conklin MD Active ZITHROMAX Z-KARTHIK 250 MG TABS 2 today, then 1 daily for 4 days 201 09/18/28 AZITHROMYCIN 22492663729 No Longer Active Paul Hamlin MD Active FOCALIN XR 10 MG [id number] 1 po q a.m. D EXMETHYLPHENIDATE HCL 48847127593 No Longer Active Paul Hamlin MD Activ e PERCOCET 10-325 MG TABS 1 tablet every 6 hours as needed for pain OXYCODONE-ACETAMINOPHEN 30807235422 No Longer Active Paul Hamlin MD Active LORTAB 5 5-500 MG TABS 1/2 to 1 tablet by mouth flaquito ry 4 hours as needed for pain HYDROCODONE-ACETAMINOPHEN 32609764104 No Longer Active Checo Conklin MD Active FOCALIN XR 15 MG [id number] 1 po q a.m. D EXMETHYLPHENIDATE HCL 10409668964 No Longer Active Checo Conklin MD Activ e ZOFRAN ODT 4 MG TBDP 1 po q6hr PRN Nausea ONDAN SETRON 03823323121 No Longer Active Checo Conklin MD Active PERCOCET 5-325 MG TABS 1 tablet by mouth every 6 hours as needed OXYCODONE-ACETAMINOPHEN 09309591026 No Longer Active Checo Conklin MD Active PYRIDIUM 200 MG TABS take 1 tab po TID prn urinary pain. 0 PHENAZOPYRIDINE HCL 30363098398 No Longer Active Checo Conklin MD Active FLUCONAZOLE 150 MG TABS take 1 tab po qday once 04/06 FLUCONAZOLE 14527197656 No Longer Active Dangelo Rangel MD Acti ve CIPRO 500 MG TAB 1 tablet by mouth twice daily CIPROFLOXACIN HCL 45947127678 No Longer Active Dangelo Rangel MD Active PYRIDIUM 200 MG TABS take 1 tab po TID prn urinary pain. 0 PYRIDIUM 200 MG TABS 6802017 PHENAZOPYRIDINE HCL Inactive PERCOCET 5-325 MG TABS 1 tablet by mouth every 6 hours as needed PERCOCET 5-325 MG TABS 5903529 OXYCODONE-ACETAMINOPHEN I nactive ZOFRAN ODT 4 MG TBDP 1 po q6hr PRN Nausea ZOFRAN ODT 4 MG TBDP 288146 ONDANSETRON Inactive FOCALIN XR 15 MG [id number] 1 po q a.m. F OCALIN XR 15 MG [id number] DEXMETHYLPHENIDATE HCL Inactive LORTAB 5 5-500 MG TABS 1/2 to 1 tablet by mouth flaquito ry 4 hours as needed for pain LORTAB 5 5-500 MG TABS HYDROCODONE-A CETAMINOPHEN Inactive PERCOCET 10-325 MG TABS 1 tablet every 6 hours as needed for pain PERCOCET 10-325 MG TABS 9159950 OXYCODONE-ACETAMINOPHEN Inactive FOCALIN XR 10 MG [id number] 1 po q a.m. F OCALIN XR 10 MG [id number] DEXMETHYLPHENIDATE HCL Inactive CEFDINIR 300 MG CAPS 1 po bid CEFDINIR 300 MG CAPS 20 0346 CEFDINIR Inactive ANTIPYRINE-BENZOCAINE 5.4-1.4 % SOLN 1-2 drops in affected ear ANTIPYRINE-BENZOCAINE 5.4-1.4 % SOLN 581055 BENZOCAINE-ANTIPYRINE I nactive FLONASE 50 MCG/ACT SUSP 1 spray each nostril am and hs FLONASE 50 MCG/ACT SUSP 794991 FLUTICASONE PROPIONATE Inactive PHENERGAN CREAM* 25mg applied to wrist q6hr PRN Nausea PHENERGAN CREAM* Inactive FIORICET 325-50-40 MG TAB 1 tablet by mouth four times daily as needed FIORICET 325-50-40 MG TAB ACETAMINOPHEN-C AFF-BUTALBITAL Inactive TRAZODONE HCL 100 MG TAB 0.5 to 1 po qHS PRN Insomnia TRAZODONE HCL 100 MG TAB 729255 TRAZODONE HCL Inactive CONCERTA 18 MG CR-TABS [...] s prn cough HYDROCODONE-ACETAMINOPHEN 5-325 MG TABS 743009 HYDROCODONE-ACETAMINOPHEN Inactive PHENAZOPYRIDINE HCL 200 MG TABS take 1 tab po TID for bladder pa in PHENAZOPYRIDINE HCL 200 MG TABS 7243830 PHENAZOPYRIDINE HCL Inactive HYDROCODONE-ACETAMINOPHEN 5-325 MG TABS 1 po q 6hr PRN Pain 2013 HYDROCODONE-ACETAMINOPHEN 5-325 MG TABS 897855 HYDROCODONE-ACETAMINOPHEN Inactive CIPRO 500 MG TAB 1 tablet by mouth twice daily CIPRO 500 MG TAB 773684 CIPROFLOXACIN HCL Inactive FLUCONAZOLE 150 MG TABS take 1 tab po qday once 04/06 FLUCONAZOLE 150 MG TABS 439008 FLUCONAZOLE Inactive ZITHROMAX Z-KARTHIK 250 MG TABS 2 today, then 1 daily for 4 days 201 09/18/28 ZITHROMAX Z-KARTHIK 250 MG TABS 2914444 AZITHROMYCIN Inac tive PREDNISONE 20 MG TAB 2 tabs daily for 3 days, 1 t ab daily for 3 days, 1/2 tab daily for 2 days PREDNISONE 20 MG TAB 085589 PREDNISON E Inactive AZITHROMYCIN 250 MG TABS 2 po qd x 1 day, then 1 po qd x 4 days AZITHROMYCIN 250 MG TABS 7923551 AZITHROMYCIN Inactiv e PREDNISONE 20 MG TAB 2 tabs daily for 3 days, 1 t ab daily for 3 days, 1/2 tab daily for 2 days PREDNISONE 20 MG TAB 513798 PREDNISON E Inactive CEFDINIR 300 MG CAPS by mouth twice a day CEFDINIR 300 MG CAPS 061608 CEFDINIR Inactive TRIAMCINOLONE ACETONIDE 0.1 % OINT Apply to affected a reas TID for up to 2 weeks TRIAMCINOLONE ACETONIDE 0.1 % OINT 169619 6 TRIAMCINOLONE ACETONIDE Inactive PREDNISONE 20 MG TAB 2 tabs daily for 3 days, 1 t ab daily for 3 days, 1/2 tab daily for 2 days PREDNISONE 20 MG TAB 077435 PREDNISON E Inactive BACTRIM DS 800-160 MG TABS 1 po BID x 7 days 0 BACTRIM DS 800-160 MG TABS SULFAMETHOXAZOLE-TRIMETHOPRIM Inactive CIPRO 500 MG TAB 1 tablet by mouth twice daily CIPRO 500 MG TAB 867202 CIPROFLOXACIN HCL Inactive AZITHROMYCIN 250 MG TABS 2 po qd x 1 day, then 1 po qd x 4 days AZITHROMYCIN 250 MG TABS 6634600 AZITHROMYCIN Inactiv e Immunizations Vaccine Administration Date [...] Panel - Chemistry sodium, serum 139 mmol/L 529-843 1275/10/24 potassium, serum 4.1 mmol/L 3.5-5.2 chloride, serum [...] 0.80 mg/dL 0.00-1.00 cholesterol, serum 147 mg/dL 234-356 9886/10/24 triglyceride, serum, fasting 112 mg/dL 30-200 HDL cholesterol, serum 40 mg/dL 32-96 LDL cholesterol, serum 85 mg/dL 0-130 Lab Report: UADIP W/MICRO, AUTO - Urinal ysis urine color Unable to read macroscopic due t o interfering substance Colorless;Lightyellow;Straw;Yellow appearance, urine red-orange clear Clear Encounters Code Encounter Date Provider Facility CPT-94965 Level 3 Est. Patient 13:34:17 SENIOR CARE ASSISTANT Checo Conklin MD [facility] CPT-56708 Level 3 Est. Patient 12:29:32 CDT Dangelo arroyo MD [facility] CPT-85384 Level 3 Est. Patient 16:53:02 CDT Checo Conklin MD [facility] CPT-39449 Level 3 Est. Patient 16:37:13 CDT Checo Conklin MD [facility] CPT-82205 Level 3 Est. Patient 16:16:59 CDT Paul Hamlin MD [facility] CPT-60245 Level 3 Est. Patient 14:20:13 CDT Dangelo arroyo MD [facility] CPT-77521 Level 4 Est. Patient 11:29:33 CDT Checo Conklin MD [facility] CPT-29677 Level 3 Est. Patient 17:08:31 CDT Checo Conklin MD [facility] CPT-16084 Level 3 Est. Patient 16:50:42 SENIOR CARE ASSISTANT Checo Conklin MD [facility] CPT-54129 Level 4 Est. Patient 09:26:08 SENIOR CARE ASSISTANT Checo Conklin MD [facility] CPT-63241 Level 3 Est. Patient 11:37:10 CDT Checo Conklin MD [facility] CPT-07947 Level 4 Est. Patient 14:07:38 CDT Checo Conklin MD [facility] CPT-02032 Level 3 Est. Patient 09:54:41 CDT Checo Conklin MD [facility] CPT-05905 Level 3 Est. Patient 11:10:54 CDT Paul Hamlin MD [facility] CPT-18877 Level 3 Est. Patient 14:16:56 SENIOR CARE ASSISTANT Checo Conklin MD [facility] CPT-10760 Level 3 Est. Patient 11:04:11 SENIOR CARE ASSISTANT Checo Conklin MD [facility] CPT-68040 Level 3 Est. Patient 17:09:26 CDT Dangelo arroyo MD [facility] CPT-45958 Level 3 Est. Patient 16:54:37 CDT Checo Conklin MD [facility] Procedures Code Procedure Name Date Entry Date Standard Desc ription CPT-OV Office Visit 11:31:28 CDT CPT-45848 Tubersol 09:39:29 CDT CPT-J2550 Phenergan 25 mg (Promethazine) 13:59:02 SENIOR CARE ASSISTANT CPT-J1885 Toradol 60 mg (Ketorolac) 13:59:02 SENIOR CARE ASSISTANT 2012
--- OUTSIDE RECORDS SUMMARY | 2019-09-29 02:38 | XMS REPORT | Clinical Summary ---
[...] q 4 hour s prn cough HYDROCODONE-ACETAMINOPHEN 21263336266 Active Paul montgomery MD Active CEFDINIR 300 MG CAPS by mouth twice a day CEFDI JAZZY 76000566643 No Longer Active Dangelo Rangel MD Active CELEXA 20 MG TABS 1 tablet by mouth daily CITAL OPRAM HYDROBROMIDE 49979595466 Active Checo Conklin MD Active BUPROPION HCL (SMOKING DETER) 150 MG [id number] 1 a day for 1 week then 1 twice a day BUPROPION HCL (SMOKING DETER) 67312765591 No Lo nger Active Checo Conklin MD Active SIMVASTATIN 20 MG TABS 1 po qd SIMVASTATIN 6772807623 4 Active Checo Conklin MD Active CHANTIX STARTING MONTH KARTHIK 0.5 MG X 11 & 1 MG X 42 TAB S 0.5mg daily for 3 days, then 0.5mg BID for 4 days, then 1mg BID VARENICLINE TARTRATE 41876949566 No Longer Active Checo Conklin MD Activ e XANAX 0.5 MG TABS 1 po BID PRN anxiety ALPRAZOLAM 59257919146 Active Checo Conklin MD Active CONCERTA 18 MG CR-TABS 1 po q a.m. METHYLPHENID ATE HCL 00325912811 No Longer Active Checo Conklin MD Active REGLAN 10 MG TAB 1 po TID PRN Nausea METOCLOPRA MIDE HCL 76367985785 Active Checo Conklin MD Active AMBIEN 5 MG TAB 1 po qHS PRN Insomnia ZOLPIDEM TARTRATE 61022452845 Active Checo Conklin MD Active TRAZODONE HCL 100 MG TAB 0.5 to 1 po qHS PRN Insomnia TRAZODONE HCL 76474960783 No Longer Active Checo Conklin MD Acti ve FIORICET 325-50-40 MG TAB 1 tablet by mouth four times daily as needed [id number] 00493905382 No Longer Active Checo Conklin MD Active PHENERGAN CREAM* 25mg applied to wrist q6hr PRN Nausea PHENERGAN CREAM* No Longer Active Checo Conklin MD A ctive LAMISIL 250 MG TAB 1 po qd TERBINAFINE HCL 5084587766 1 Active Checo Conklin MD Active FLONASE 50 MCG/ACT SUSP 1 spray each nostril am and hs FLUTICASONE PROPIONATE 09595884737 No Longer Active Checo Conklin MD Activ e ANTIPYRINE-BENZOCAINE 5.4-1.4 % SOLN 1-2 drops in affected ear BENZOCAINE-ANTIPYRINE 51012061552 No Longer Active Checo Conklin MD Active CEFDINIR 300 MG CAPS 1 po bid CEFDINIR 43986039 120 No Longer Active Checo Conklin MD Active PREDNISONE 20 MG TAB 2 tabs daily for 3 days, 1 t ab daily for 3 days, 1/2 tab daily for 2 days PREDNISONE 66838271975 No Longer Active Aracelis Conklin MD Active AZITHROMYCIN 250 MG TABS 2 po qd x 1 day, then 1 po qd x 4 days AZITHROMYCIN 77065462466 No Longer Active Checo Conklin MD Active PREDNISONE 20 MG TAB 2 tabs daily for 3 days, 1 t ab daily for 3 days, 1/2 tab daily for 2 days PREDNISONE 80807614518 No Longer Active Checo Conklin MD Active ZITHROMAX Z-KARTHIK 250 MG TABS 2 today, then 1 daily for 4 days 201 09/18/28 AZITHROMYCIN 05798784937 No Longer Active Paul Hamlin MD Active FOCALIN XR 10 MG [id number] 1 po q a.m. D EXMETHYLPHENIDATE HCL 78053456897 No Longer Active Paul Hamlin MD Activ e PERCOCET 10-325 MG TABS 1 tablet every 6 hours as needed for pain OXYCODONE-ACETAMINOPHEN 22814738909 No Longer Active Paul Hamlin MD Active LORTAB 5 5-500 MG TABS 1/2 to 1 tablet by mouth flaquito ry 4 hours as needed for pain HYDROCODONE-ACETAMINOPHEN 51157425450 No Longer Active Checo Conklin MD Active FOCALIN XR 15 MG [id number] 1 po q a.m. D EXMETHYLPHENIDATE HCL 11226047284 No Longer Active Checo Conklin MD Activ e ZOFRAN ODT 4 MG TBDP 1 po q6hr PRN Nausea ONDAN SETRON 44499964193 No Longer Active Checo Conklin MD Active PERCOCET 5-325 MG TABS 1 tablet by mouth every 6 hours as needed OXYCODONE-ACETAMINOPHEN 82285954835 No Longer Active Checo Conklin MD Active PYRIDIUM 200 MG TABS take 1 tab po TID prn urinary pain. 0 PHENAZOPYRIDINE HCL 32499809910 No Longer Active Checo Conklin MD Active FLUCONAZOLE 150 MG TABS take 1 tab po qday once 04/06 FLUCONAZOLE 75582526488 No Longer Active Dangelo Rangel MD Acti ve CIPRO 500 MG TAB 1 tablet by mouth twice daily CIPROFLOXACIN HCL 26366052958 No Longer Active Dangelo Rangel MD Active PYRIDIUM 200 MG TABS take 1 tab po TID prn urinary pain. 0 PYRIDIUM 200 MG TABS 0667924 PHENAZOPYRIDINE HCL Inactive PERCOCET 5-325 MG TABS 1 tablet by mouth every 6 hours as needed PERCOCET 5-325 MG TABS 5513214 OXYCODONE-ACETAMINOPHEN I nactive ZOFRAN ODT 4 MG TBDP 1 po q6hr PRN Nausea ZOFRAN ODT 4 MG TBDP 764952 ONDANSETRON Inactive FOCALIN XR 15 MG [id number] 1 po q a.m. F OCALIN XR 15 MG [id number] DEXMETHYLPHENIDATE HCL Inactive LORTAB 5 5-500 MG TABS 1/2 to 1 tablet by mouth flaquito ry 4 hours as needed for pain LORTAB 5 5-500 MG TABS HYDROCODONE-A CETAMINOPHEN Inactive PERCOCET 10-325 MG TABS 1 tablet every 6 hours as needed for pain PERCOCET 10-325 MG TABS 6617796 OXYCODONE-ACETAMINOPHEN Inactive FOCALIN XR 10 MG [id number] 1 po q a.m. F OCALIN XR 10 MG [id number] DEXMETHYLPHENIDATE HCL Inactive CEFDINIR 300 MG CAPS 1 po bid CEFDINIR 300 MG CAPS 20 0346 CEFDINIR Inactive ANTIPYRINE-BENZOCAINE 5.4-1.4 % SOLN 1-2 drops in affected ear ANTIPYRINE-BENZOCAINE 5.4-1.4 % SOLN 356724 BENZOCAINE-ANTIPYRINE I nactive FLONASE 50 MCG/ACT SUSP 1 spray each nostril am and hs FLONASE 50 MCG/ACT SUSP 605942 FLUTICASONE PROPIONATE Inactive PHENERGAN CREAM* 25mg applied to wrist q6hr PRN Nausea PHENERGAN CREAM* Inactive FIORICET 325-50-40 MG TAB 1 tablet by mouth four times daily as needed FIORICET 325-50-40 MG TAB ACETAMINOPHEN-C AFF-BUTALBITAL Inactive TRAZODONE HCL 100 MG TAB 0.5 to 1 po qHS PRN Insomnia TRAZODONE HCL 100 MG TAB 489004 TRAZODONE HCL Inactive CONCERTA 18 MG CR-TABS [...] mouth twice daily CIPRO 500 MG TAB 634387 CIPROFLOXACIN HCL Inactive FLUCONAZOLE 150 MG TABS take 1 tab po qday once 04/06 FLUCONAZOLE 150 MG TABS 497175 FLUCONAZOLE Inactive ZITHROMAX Z-KARTHIK 250 MG TABS 2 today, then 1 daily for 4 days 201 09/18/28 ZITHROMAX Z-KARTHIK 250 MG TABS 1803489 AZITHROMYCIN Inac tive PREDNISONE 20 MG TAB 2 tabs daily for 3 days, 1 t ab daily for 3 days, 1/2 tab daily for 2 days PREDNISONE 20 MG TAB 714336 PREDNISON E Inactive AZITHROMYCIN 250 MG TABS 2 po qd x 1 day, then 1 po qd x 4 days AZITHROMYCIN 250 MG TABS 2753772 AZITHROMYCIN Inactiv e PREDNISONE 20 MG TAB 2 tabs daily for 3 days, 1 t ab daily for 3 days, 1/2 tab daily for 2 days PREDNISONE 20 MG TAB 720586 PREDNISON E Inactive CEFDINIR 300 MG CAPS by mouth twice a day CEFDINIR 300 MG CAPS 817405 CEFDINIR Inactive Immunizations Vaccine Administration Date Value [...] 5.3 % 4.3-6.0 sodium, serum 139 mmol/L 559-200 4049/01/09 potassium, serum 4.3 mmol/L 3.5-5.2 chloride, serum [...] 1.10 mg/dL 0.00-1.00 cholesterol, serum 222 mg/dL 991-396 1653/01/09 triglyceride, serum, fasting 92 mg/dL 30-200 HDL [...] 142-424 Encounters Code Encounter Date Provider Facility CPT-28307 Level 3 Est. Patient 16:16:59 CDT Paul Hamlin MD [facility] CPT-10903 Level 3 Est. Patient 14:20:13 CDT Dangelo arroyo MD [facility] CPT-49495 Level 4 Est. Patient 11:29:33 CDT Checo Conklin MD [facility] CPT-51001 Level 3 Est. Patient 17:08:31 CDT Checo Conklin MD [facility] CPT-72303 Level 3 Est. 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 Patient 11:37:10 CDT Checo Conklin MD [facility] CPT-51048 Level 4 Est. Patient 14:07:38 CDT Checo Conklin MD [facility] CPT-77461 Level 3 Est. Patient 09:54:41 CDT Checo Conklin MD [facility] CPT-98207 Level 3 Est. Patient 11:10:54 CDT Paul Hamlin MD [facility] CPT-42031 Level 3 Est. 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 Patient 17:09:26 CDT Dangelo arroyo MD [facility] CPT-83178 Level 3 Est. Patient 16:54:37 CDT Checo Conklin MD [facility] Procedures Code Procedure Name Date Entry Date Standard Desc ription CPT-OV Office Visit 11:31:28 CDT CPT-23497 Tubersol 09:39:29 CDT CPT-J2550 Phenergan 25 mg (Promethazine) 13:59:02 RENTAL SALES ASSOCIATE CPT-J1885 Toradol 60 mg (Ketorolac) 13:59:02 RENTAL SALES ASSOCIATE 2012
--- OUTSIDE RECORDS SUMMARY | 2019-09-29 02:38 | XMS REPORT | Clinical Summary ---
Author Author Admin, Bethany Gonzales Organization [facility] Address Unknown Phone Unavailable Allergies, Adverse Reactions, Alerts Allergy Name Reaction Description Start Date Severity Status Pr ovider CODEINE Critical Active Checo rcihey MD Conditions or Problems Problem Name Problem [...] po BID x 7 days 0 SULFAMETHOXAZOLE-TRIMETHOPRIM 21633058111 Active Checo Conklin MD Active PREDNISONE 20 MG TAB 2 tabs daily for 3 days, 1 t ab daily for 3 days, 1/2 tab daily for 2 days PREDNISONE 41188916173 No Longer Active Checo Conklin MD Active TRIAMCINOLONE ACETONIDE 0.1 % OINT Apply to affected a reas TID for up to 2 weeks TRIAMCINOLONE ACETONIDE 08698916755 No Longer A ctive Checo Conklin MD Active HYDROCODONE-ACETAMINOPHEN 5-325 MG TABS 1/2 to 1 po q 4 hour s prn cough HYDROCODONE-ACETAMINOPHEN 02881396016 Active Paul montgomery MD Active CEFDINIR 300 MG CAPS by mouth twice a day CEFDI JAZZY 92219129172 No Longer Active Dangelo Rangel MD Active CELEXA 20 MG TABS 1 tablet by mouth daily CITAL OPRAM HYDROBROMIDE 03320192522 Active Checo Conklin MD Active BUPROPION HCL (SMOKING DETER) 150 MG [id number] 1 a day for 1 week then 1 twice a day BUPROPION HCL (SMOKING DETER) 33264339529 No Lo nger Active Checo Conklin MD Active SIMVASTATIN 20 MG TABS 1 po qd SIMVASTATIN 2378114206 4 Active Checo Conklin MD Active CHANTIX STARTING MONTH KARTHIK 0.5 MG X 11 & 1 MG X 42 TAB S 0.5mg daily for 3 days, then 0.5mg BID for 4 days, then 1mg BID VARENICLINE TARTRATE 31598457437 No Longer Active Checo Conklin MD Activ e XANAX 0.5 MG TABS 1 po BID PRN anxiety ALPRAZOLAM 26962176095 Active Cehco Conklin MD Active CONCERTA 18 MG CR-TABS 1 po q a.m. METHYLPHENID ATE HCL 74486981007 No Longer Active Checo Conklin MD Active REGLAN 10 MG TAB 1 po TID PRN Nausea METOCLOPRA MIDE HCL 56847234988 Active Checo Conklin MD Active AMBIEN 5 MG TAB 1 po qHS PRN Insomnia ZOLPIDEM TARTRATE 01979047252 Active Checo Conklin MD Active TRAZODONE HCL 100 MG TAB 0.5 to 1 po qHS PRN Insomnia TRAZODONE HCL 52565328946 No Longer Active Checo Conklin MD Acti ve FIORICET 325-50-40 MG TAB 1 tablet by mouth four times daily as needed [id number] 08895469056 No Longer Active Checo Conklin MD Active PHENERGAN CREAM* 25mg applied to wrist q6hr PRN Nausea PHENERGAN CREAM* No Longer Active Checo Conklin MD A ctive LAMISIL 250 MG TAB 1 po qd TERBINAFINE HCL 2022496907 1 Active Checo Conklin MD Active FLONASE 50 MCG/ACT SUSP 1 spray each nostril am and hs FLUTICASONE PROPIONATE 96863788235 No Longer Active Checo Conklin MD Activ e ANTIPYRINE-BENZOCAINE 5.4-1.4 % SOLN 1-2 drops in affected ear BENZOCAINE-ANTIPYRINE 06304248887 No Longer Active Checo Conklin MD Active CEFDINIR 300 MG CAPS 1 po bid CEFDINIR 03669847 120 No Longer Active Checo Conklin MD Active PREDNISONE 20 MG TAB 2 tabs daily for 3 days, 1 t ab daily for 3 days, 1/2 tab daily for 2 days PREDNISONE 09070689529 No Longer Active Aracelis Conklin MD Active AZITHROMYCIN 250 MG TABS 2 po qd x 1 day, then 1 po qd x 4 days AZITHROMYCIN 92100203529 No Longer Active Checo Conklin MD Active PREDNISONE 20 MG TAB 2 tabs daily for 3 days, 1 t ab daily for 3 days, 1/2 tab daily for 2 days PREDNISONE 43777548354 No Longer Active Checo Conklin MD Active ZITHROMAX Z-KARTHIK 250 MG TABS 2 today, then 1 daily for 4 days 201 09/18/28 AZITHROMYCIN 50642548902 No Longer Active Paul Hamlin MD Active FOCALIN XR 10 MG [id number] 1 po q a.m. D EXMETHYLPHENIDATE HCL 69442611496 No Longer Active Paul Hamlin MD Activ e PERCOCET 10-325 MG TABS 1 tablet every 6 hours as needed for pain OXYCODONE-ACETAMINOPHEN 22795204797 No Longer Active Paul Hamlin MD Active LORTAB 5 5-500 MG TABS 1/2 to 1 tablet by mouth flaquito ry 4 hours as needed for pain HYDROCODONE-ACETAMINOPHEN 83684384762 No Longer Active Checo Conklin MD Active FOCALIN XR 15 MG [id number] 1 po q a.m. D EXMETHYLPHENIDATE HCL 54926257763 No Longer Active Checo Conklin MD Activ e ZOFRAN ODT 4 MG TBDP 1 po q6hr PRN Nausea ONDAN SETRON 67784836942 No Longer Active Checo Conklin MD Active PERCOCET 5-325 MG TABS 1 tablet by mouth every 6 hours as needed OXYCODONE-ACETAMINOPHEN 24951380522 No Longer Active Checo Conklin MD Active PYRIDIUM 200 MG TABS take 1 tab po TID prn urinary pain. 0 PHENAZOPYRIDINE HCL 01513201483 No Longer Active Checo Conklin MD Active FLUCONAZOLE 150 MG TABS take 1 tab po qday once 04/06 FLUCONAZOLE 34265206142 No Longer Active Dangelo Rangel MD Acti ve CIPRO 500 MG TAB 1 tablet by mouth twice daily CIPROFLOXACIN HCL 05358013411 No Longer Active Dangelo Rangel MD Active PYRIDIUM 200 MG TABS take 1 tab po TID prn urinary pain. 0 PYRIDIUM 200 MG TABS 5763215 PHENAZOPYRIDINE HCL Inactive PERCOCET 5-325 MG TABS 1 tablet by mouth every 6 hours as needed PERCOCET 5-325 MG TABS 0454150 OXYCODONE-ACETAMINOPHEN I nactive ZOFRAN ODT 4 MG TBDP 1 po q6hr PRN Nausea ZOFRAN ODT 4 MG TBDP 619067 ONDANSETRON Inactive FOCALIN XR 15 MG [id number] 1 po q a.m. F OCALIN XR 15 MG [id number] DEXMETHYLPHENIDATE HCL Inactive LORTAB 5 5-500 MG TABS 1/2 to 1 tablet by mouth flaquito ry 4 hours as needed for pain LORTAB 5 5-500 MG TABS HYDROCODONE-A CETAMINOPHEN Inactive PERCOCET 10-325 MG TABS 1 tablet every 6 hours as needed for pain PERCOCET 10-325 MG TABS 3325128 OXYCODONE-ACETAMINOPHEN Inactive FOCALIN XR 10 MG [id number] 1 po q a.m. F OCALIN XR 10 MG [id number] DEXMETHYLPHENIDATE HCL Inactive CEFDINIR 300 MG CAPS 1 po bid CEFDINIR 300 MG CAPS 20 0346 CEFDINIR Inactive ANTIPYRINE-BENZOCAINE 5.4-1.4 % SOLN 1-2 drops in affected ear ANTIPYRINE-BENZOCAINE 5.4-1.4 % SOLN 503497 BENZOCAINE-ANTIPYRINE I nactive FLONASE 50 MCG/ACT SUSP 1 spray each nostril am and hs FLONASE 50 MCG/ACT SUSP 547719 FLUTICASONE PROPIONATE Inactive PHENERGAN CREAM* 25mg applied to wrist q6hr PRN Nausea PHENERGAN CREAM* Inactive FIORICET 325-50-40 MG TAB 1 tablet by mouth four times daily as needed FIORICET 325-50-40 MG TAB ACETAMINOPHEN-C AFF-BUTALBITAL Inactive TRAZODONE HCL 100 MG TAB 0.5 to 1 po qHS PRN Insomnia TRAZODONE HCL 100 MG TAB 868735 TRAZODONE HCL Inactive CONCERTA 18 MG CR-TABS [...] mouth twice daily CIPRO 500 MG TAB 326460 CIPROFLOXACIN HCL Inactive FLUCONAZOLE 150 MG TABS take 1 tab po qday once 04/06 FLUCONAZOLE 150 MG TABS 578224 FLUCONAZOLE Inactive ZITHROMAX Z-KARTHIK 250 MG TABS 2 today, then 1 daily for 4 days 201 09/18/28 ZITHROMAX Z-KARTHIK 250 MG TABS 7386332 AZITHROMYCIN Inac tive PREDNISONE 20 MG TAB 2 tabs daily for 3 days, 1 t ab daily for 3 days, 1/2 tab daily for 2 days PREDNISONE 20 MG TAB 344317 PREDNISON E Inactive AZITHROMYCIN 250 MG TABS 2 po qd x 1 day, then 1 po qd x 4 days AZITHROMYCIN 250 MG TABS 9513917 AZITHROMYCIN Inactiv e PREDNISONE 20 MG TAB 2 tabs daily for 3 days, 1 t ab daily for 3 days, 1/2 tab daily for 2 days PREDNISONE 20 MG TAB 512679 PREDNISON E Inactive CEFDINIR 300 MG CAPS by mouth twice a day CEFDINIR 300 MG CAPS 795166 CEFDINIR Inactive TRIAMCINOLONE ACETONIDE 0.1 % OINT Apply to affected a reas TID for up to 2 weeks TRIAMCINOLONE ACETONIDE 0.1 % OINT 927551 6 TRIAMCINOLONE ACETONIDE Inactive PREDNISONE 20 MG TAB 2 tabs daily for 3 days, 1 t ab daily for 3 days, 1/2 tab daily for 2 days PREDNISONE 20 MG TAB 668098 PREDNISON E Inactive Immunizations Vaccine Administration Date [...] 5.3 % 4.3-6.0 sodium, serum 139 mmol/L 199-736 4856/01/09 potassium, serum 4.3 mmol/L 3.5-5.2 chloride, serum [...] 1.10 mg/dL 0.00-1.00 cholesterol, serum 222 mg/dL 484-333 2253/01/09 triglyceride, serum, fasting 92 mg/dL 30-200 HDL [...] 142-424 Encounters Code Encounter Date Provider Facility CPT-08028 Level 3 Est. Patient 16:53:02 CDT Checo Conklin MD [facility] CPT-28094 Level 3 Est. Patient 16:37:13 CDT Checo Conklin MD [facility] CPT-03878 Level 3 Est. Patient 16:16:59 CDT Paul Hamlin MD [facility] CPT-79243 Level 3 Est. Patient 14:20:13 CDT Dangelo arroyo MD [facility] CPT-95626 Level 4 Est. Patient 11:29:33 CDT Checo Conklin MD [facility] CPT-32971 Level 3 Est. Patient 17:08:31 CDT Checo Conklin MD [facility] CPT-68093 Level 3 Est. 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 Patient 09:26:08 AIR SAMPLER Checo Conklin MD [facility] CPT-08516 Level 3 Est. Patient 11:37:10 CDT Checo Conklin MD [facility] CPT-95789 Level 4 Est. Patient 14:07:38 CDT Checo Conklin MD [facility] CPT-87209 Level 3 Est. Patient 09:54:41 CDT Checo Conklin MD [facility] CPT-45140 Level 3 Est. Patient 11:10:54 CDT Paul Hamlin MD [facility] CPT-76964 Level 3 Est. Patient 14:16:56 AIR SAMPLER Checo Conklin MD [facility] CPT-24147 Level 3 Est. Patient 11:04:11 AIR SAMPLER Checo Conklin MD [facility] CPT-63273 Level 3 Est. Patient 17:09:26 CDT Dangelo arroyo MD [facility] CPT-58313 Level 3 Est. Patient 16:54:37 CDT Checo Conklin MD [facility] Procedures Code Procedure Name Date Entry Date Standard Desc ription CPT-OV Office Visit 11:31:28 CDT CPT-93172 Tubersol 09:39:29 CDT CPT-J2550 Phenergan 25 mg (Promethazine) 13:59:02 AIR SAMPLER CPT-J1885 Toradol 60 mg (Ketorolac) 13:59:02 AIR SAMPLER 2012
--- OUTSIDE RECORDS SUMMARY | 2019-09-29 02:38 | XMS REPORT | Clinical Summary ---
Author Author Admin, Bethany Gonzales Organization [facility] Address Unknown Phone [...] unspecified A D D 314.00 Active Checo Conkiln MD Attention deficit disorder of childhood without [...] q 4 hour s prn cough HYDROCODONE-ACETAMINOPHEN 65929235513 Active Paul montgomery MD Active CEFDINIR 300 MG CAPS by mouth twice a day CEFDI JAZZY 79640950864 Active Dangelo Rangel MD Active CELEXA 20 MG TABS 1 tablet by mouth daily CITAL OPRAM HYDROBROMIDE 84542955748 Active Checo Conklin MD Active BUPROPION HCL (SMOKING DETER) 150 MG [id number] 1 a day for 1 week then 1 twice a day BUPROPION HCL (SMOKING DETER) 86206114556 No Lo nger Active Checo Conklin MD Active SIMVASTATIN 20 MG TABS 1 po qd SIMVASTATIN 7756492345 4 Active Checo Conklin MD Active CHANTIX STARTING MONTH KARTHIK 0.5 MG X 11 & 1 MG X 42 TAB S 0.5mg daily for 3 days, then 0.5mg BID for 4 days, then 1mg BID VARENICLINE TARTRATE 69143820839 No Longer Active Checo Conklin MD Activ e XANAX 0.5 MG TABS 1 po BID PRN anxiety ALPRAZOLAM 25782343474 Active Checo Conklin MD Active CONCERTA 18 MG CR-TABS 1 po q a.m. METHYLPHENID ATE HCL 86055384151 No Longer Active Checo Conklin MD Active REGLAN 10 MG TAB 1 po TID PRN Nausea METOCLOPRA MIDE HCL 43631274672 Active Checo Conklin MD Active AMBIEN 5 MG TAB 1 po qHS PRN Insomnia ZOLPIDEM TARTRATE 80353951634 Active Checo Conklin MD Active TRAZODONE HCL 100 MG TAB 0.5 to 1 po qHS PRN Insomnia TRAZODONE HCL 56636663645 No Longer Active Checo Conklin MD Acti ve FIORICET 325-50-40 MG TAB 1 tablet by mouth four times daily as needed [id number] 27285194419 No Longer Active Checo Conklin MD Active PHENERGAN CREAM* 25mg applied to wrist q6hr PRN Nausea PHENERGAN CREAM* No Longer Active Checo Conklin MD A ctive LAMISIL 250 MG TAB 1 po qd TERBINAFINE HCL 5432155432 1 Active Checo Conklin MD Active FLONASE 50 MCG/ACT SUSP 1 spray each nostril am and hs FLUTICASONE PROPIONATE 38518151005 No Longer Active Checo Conklin MD Activ e ANTIPYRINE-BENZOCAINE 5.4-1.4 % SOLN 1-2 drops in affected ear BENZOCAINE-ANTIPYRINE 93644767271 No Longer Active Checo Conklin MD Active CEFDINIR 300 MG CAPS 1 po bid CEFDINIR 77683721 120 No Longer Active Checo Conklin MD Active PREDNISONE 20 MG TAB 2 tabs daily for 3 days, 1 t ab daily for 3 days, 1/2 tab daily for 2 days PREDNISONE 97086446050 No Longer Active Aracelis Conklin MD Active AZITHROMYCIN 250 MG TABS 2 po qd x 1 day, then 1 po qd x 4 days AZITHROMYCIN 62890580038 No Longer Active Checo Conklin MD Active PREDNISONE 20 MG TAB 2 tabs daily for 3 days, 1 t ab daily for 3 days, 1/2 tab daily for 2 days PREDNISONE 73469715602 No Longer Active Checo Conklin MD Active ZITHROMAX Z-KARTHIK 250 MG TABS 2 today, then 1 daily for 4 days 201 09/18/28 AZITHROMYCIN 09680403811 No Longer Active Paul Hamlin MD Active FOCALIN XR 10 MG [id number] 1 po q a.m. D EXMETHYLPHENIDATE HCL 90107007119 No Longer Active Paul Hamlin MD Activ e PERCOCET 10-325 MG TABS 1 tablet every 6 hours as needed for pain OXYCODONE-ACETAMINOPHEN 62065032068 No Longer Active Paul Hamlin MD Active LORTAB 5 5-500 MG TABS 1/2 to 1 tablet by mouth flaquito ry 4 hours as needed for pain HYDROCODONE-ACETAMINOPHEN 62452420469 No Longer Active Checo Conklin MD Active FOCALIN XR 15 MG [id number] 1 po q a.m. D EXMETHYLPHENIDATE HCL 10418615993 No Longer Active Checo Conklin MD Activ e ZOFRAN ODT 4 MG TBDP 1 po q6hr PRN Nausea ONDAN SETRON 00285310163 No Longer Active Checo Conklin MD Active PERCOCET 5-325 MG TABS 1 tablet by mouth every 6 hours as needed OXYCODONE-ACETAMINOPHEN 49914689283 No Longer Active Checo Conklin MD Active PYRIDIUM 200 MG TABS take 1 tab po TID prn urinary pain. 0 PHENAZOPYRIDINE HCL 42290271424 No Longer Active Checo Conklin MD Active FLUCONAZOLE 150 MG TABS take 1 tab po qday once 04/06 FLUCONAZOLE 97891465349 No Longer Active Dangelo Rangel MD Acti ve CIPRO 500 MG TAB 1 tablet by mouth twice daily CIPROFLOXACIN HCL 72451666422 No Longer Active Dangelo Rangel MD Active PYRIDIUM 200 MG TABS take 1 tab po TID prn urinary pain. 0 PYRIDIUM 200 MG TABS 8749938 PHENAZOPYRIDINE HCL Inactive PERCOCET 5-325 MG TABS 1 tablet by mouth every 6 hours as needed PERCOCET 5-325 MG TABS 9529616 OXYCODONE-ACETAMINOPHEN I nactive ZOFRAN ODT 4 MG TBDP 1 po q6hr PRN Nausea ZOFRAN ODT 4 MG TBDP 954240 ONDANSETRON Inactive FOCALIN XR 15 MG [id number] 1 po q a.m. F OCALIN XR 15 MG [id number] DEXMETHYLPHENIDATE HCL Inactive LORTAB 5 5-500 MG TABS 1/2 to 1 tablet by mouth flaquito ry 4 hours as needed for pain LORTAB 5 5-500 MG TABS HYDROCODONE-A CETAMINOPHEN Inactive PERCOCET 10-325 MG TABS 1 tablet every 6 hours as needed for pain PERCOCET 10-325 MG TABS 2467441 OXYCODONE-ACETAMINOPHEN Inactive FOCALIN XR 10 MG [id number] 1 po q a.m. F OCALIN XR 10 MG [id number] DEXMETHYLPHENIDATE HCL Inactive CEFDINIR 300 MG CAPS 1 po bid CEFDINIR 300 MG CAPS 20 0346 CEFDINIR Inactive ANTIPYRINE-BENZOCAINE 5.4-1.4 % SOLN 1-2 drops in affected ear ANTIPYRINE-BENZOCAINE 5.4-1.4 % SOLN 114204 BENZOCAINE-ANTIPYRINE I nactive FLONASE 50 MCG/ACT SUSP 1 spray each nostril am and hs FLONASE 50 MCG/ACT SUSP 807129 FLUTICASONE PROPIONATE Inactive PHENERGAN CREAM* 25mg applied to wrist q6hr PRN Nausea PHENERGAN CREAM* Inactive FIORICET 325-50-40 MG TAB 1 tablet by mouth four times daily as needed FIORICET 325-50-40 MG TAB ACETAMINOPHEN-C AFF-BUTALBITAL Inactive TRAZODONE HCL 100 MG TAB 0.5 to 1 po qHS PRN Insomnia TRAZODONE HCL 100 MG TAB 940424 TRAZODONE HCL Inactive CONCERTA 18 MG CR-TABS [...] mouth twice daily CIPRO 500 MG TAB 334568 CIPROFLOXACIN HCL Inactive FLUCONAZOLE 150 MG TABS take 1 tab po qday once 04/06 FLUCONAZOLE 150 MG TABS 434457 FLUCONAZOLE Inactive ZITHROMAX Z-KARTHIK 250 MG TABS 2 today, then 1 daily for 4 days 201 09/18/28 ZITHROMAX Z-KARTHIK 250 MG TABS 1854607 AZITHROMYCIN Inac tive PREDNISONE 20 MG TAB 2 tabs daily for 3 days, 1 t ab daily for 3 days, 1/2 tab daily for 2 days PREDNISONE 20 MG TAB 279676 PREDNISON E Inactive AZITHROMYCIN 250 MG TABS 2 po qd x 1 day, then 1 po qd x 4 days AZITHROMYCIN 250 MG TABS 5634906 AZITHROMYCIN Inactiv e PREDNISONE 20 MG TAB 2 tabs daily for 3 days, 1 t ab daily for 3 days, 1/2 tab daily for 2 days PREDNISONE 20 MG TAB 781301 PREDNISON E Inactive Immunizations Vaccine Administration Date [...] 5.3 % 4.3-6.0 sodium, serum 139 mmol/L 673-300 9647/01/09 potassium, serum 4.3 mmol/L 3.5-5.2 chloride, serum [...] 1.10 mg/dL 0.00-1.00 cholesterol, serum 222 mg/dL 460-575 2852/01/09 triglyceride, serum, fasting 92 mg/dL 30-200 HDL [...] (RBC) count 4.35 10^6/MM^3 10*6/mm3 4.04-5.4 8 lymphocytes as percent of blood leukocytes 37.5 % 20.5-51.1 monocytes as percent of blood leukocytes 8.7 % 1.7-9.3 neutrophils as percent of blood leukocytes 51.6 % 42.2-75.2 leukocyte count, blood 5.5 10^3/MM^3 10*3/mm3 4.6-10.2 mean corpuscular hemoglobin concentration, RBC 33.4 G/DL % 31.8-35.4 red blood cell distribution width 13.1 % 11 .6-14.8 platelet count 179 10^3/MM^3 10*3/mm3 142-424 Encounters Code Encounter Date Provider Facility CPT-00502 Level 3 Est. Patient 16:16:59 CDT Paul Hamlin MD [facility] CPT-03186 Level 3 Est. Patient 14:20:13 CDT Dangelo arroyo MD [facility] CPT-45756 Level 4 Est. Patient 11:29:33 CDT Checo Conklin MD [facility] CPT-67600 Level 3 Est. Patient 17:08:31 CDT Checo Conklin MD [facility] CPT-80297 Level 3 Est. Patient 16:50:42 REAL ESTATE LISTING CONSULTANT Checo Conklin MD [facility] CPT-81397 Level 4 Est. Patient 09:26:08 REAL ESTATE LISTING CONSULTANT Checo Conklin [facility] CPT-43471 Level 3 Est. Patient 11:37:10 CDT Checo Conklin MD [facility] CPT-81356 Level 4 Est. Patient 14:07:38 CDT Checo Conklin MD [facility] CPT-90226 Level 3 Est. Patient 09:54:41 CDT Checo Conklin MD [facility] CPT-97460 Level 3 Est. Patient 11:10:54 CDT Paul Hamlin MD [facility] CPT-35476 Level 3 Est. Patient 14:16:56 REAL ESTATE LISTING CONSULTANT Checo Conklin MD [facility] CPT-96106 Level 3 Est. Patient 11:04:11 REAL ESTATE LISTING CONSULTANT Checo Conklin MD [facility] CPT-09826 Level 3 Est. Patient 17:09:26 CDT Dangelo arroyo MD [facility] CPT-68041 Level 3 Est. Patient 16:54:37 CDT Checo Conklin MD [facility] Procedures Code Procedure Name Date Entry Date Standard Desc ription CPT-OV Office Visit 11:31:28 CDT CPT-14897 Tubersol 09:39:29 CDT CPT-J2550 Phenergan 25 mg (Promethazine) 13:59:02 REAL ESTATE LISTING CONSULTANT CPT-J1885 Toradol 60 mg (Ketorolac) 13:59:02 REAL ESTATE LISTING CONSULTANT 2012
--- OUTSIDE RECORDS SUMMARY | 2019-09-29 02:39 | XMS REPORT | Clinical Summary ---
Author Author Admin, Bethany Gonzales Organization [facility] Address Unknown Phone Unavailable Allergies, [...] mouth every 6 hours as needed HYDROCODONE-ACETAMINOPHEN 73629813963 Active Checo Conklin MD Active DICLOFENAC SODIUM 75 MG TBEC 1 tablet by mouth twice daily P RN Knee pain DICLOFENAC SODIUM 30228468366 Active Checo Conklin MD Active LAMISIL 250 MG TAB 1 po qd TERBINAFINE HCL 548 03266780 No Longer Active Checo Conklin MD Active REGLAN 10 MG TAB 1 po TID PRN Nausea METOCLOPRA MIDE HCL 15181806593 No Longer Active Checo Conklin MD Active CELEXA 20 MG TABS 1 tablet by mouth daily CITALOPRAM HYDROBROMIDE 73873035758 No Longer Active Checo Conklin MD Activ e AZITHROMYCIN 250 MG TABS 2 po qd x 1 day, then 1 po qd x 4 days AZITHROMYCIN 53663314114 No Longer Active Checo Conklin MD Active HYDROCODONE-ACETAMINOPHEN 5-325 MG TABS 1 po q 6hr PRN Pain 2013 HYDROCODONE-ACETAMINOPHEN 32857751917 No Longer Active Lenora Conklin MD Active PHENAZOPYRIDINE HCL 200 MG TABS take 1 tab po TID for bladder pa in PHENAZOPYRIDINE HCL 46828807023 No Longer Active Checo Joshua Active CIPRO 500 MG TAB 1 tablet by mouth twice daily CIPROFLOXACIN HCL 67361929996 No Longer Active Dangelo Rangel MD Active HYDROCODONE-ACETAMINOPHEN 5-325 MG TABS 1/2 to 1 po q 4 hour s prn cough HYDROCODONE-ACETAMINOPHEN 79337128991 No Longer Activ e Dangelo Rangel MD Active BACTRIM DS 800-160 MG TABS 1 po BID x 7 days 0 SULFAMETHOXAZOLE-TRIMETHOPRIM 61589259384 No Longer Active Checo Conklin MD Active PREDNISONE 20 MG TAB 2 tabs daily for 3 days, 1 t ab daily for 3 days, 1/2 tab daily for 2 days PREDNISONE 63131774518 No Longer Active Checo Conklin MD Active TRIAMCINOLONE ACETONIDE 0.1 % OINT Apply to affected a reas TID for up to 2 weeks TRIAMCINOLONE ACETONIDE 88989554644 No Longer A ctive Checo Conklin MD Active CEFDINIR 300 MG CAPS by mouth twice a day CEFDI JAZZY 18542638001 No Longer Active Dangelo Rangel MD Active BUPROPION HCL (SMOKING DETER) 150 MG [id number] 1 a day for 1 week then 1 twice a day BUPROPION HCL (SMOKING DETER) 07369243777 No Lo nger Active Checo Conklin MD Active SIMVASTATIN 20 MG TABS 1 po qd SIMVASTATIN 3169719390 5 Active Checo Conklin MD Active CHANTIX STARTING MONTH KARTHIK 0.5 MG X 11 & 1 MG X 42 TAB S 0.5mg daily for 3 days, then 0.5mg BID for 4 days, then 1mg BID VARENICLINE TARTRATE 48325504256 No Longer Active Checo Conklin MD Activ e XANAX 0.5 MG TABS 1 po BID PRN anxiety ALPRAZOLAM 51444219814 Active Checo Conklin MD Active CONCERTA 18 MG CR-TABS 1 po q a.m. METHYLPHENID ATE HCL 83553320278 No Longer Active Checo Conklin MD Active AMBIEN 5 MG TAB 1 po qHS PRN Insomnia ZOLPIDEM TARTRATE 29833799983 Active Checo Conklin MD Active TRAZODONE HCL 100 MG TAB 0.5 to 1 po qHS PRN Insomnia TRAZODONE HCL 26690785242 No Longer Active Checo Conklin MD Acti ve FIORICET 325-50-40 MG TAB 1 tablet by mouth four times daily as needed [id number] 07922846277 No Longer Active Checo Conklin MD Active PHENERGAN CREAM* 25mg applied to wrist q6hr PRN Nausea PHENERGAN CREAM* No Longer Active Checo Gonzales ctive FLONASE 50 MCG/ACT SUSP 1 spray each nostril am and hs FLUTICASONE PROPIONATE 22122838216 No Longer Active Checo Conklin MD Activ e ANTIPYRINE-BENZOCAINE 5.4-1.4 % SOLN 1-2 drops in affected ear BENZOCAINE-ANTIPYRINE 61066773497 No Longer Active Checo Conklin MD Active CEFDINIR 300 MG CAPS 1 po bid CEFDINIR 56213078 120 No Longer Active Checo Conklin MD Active PREDNISONE 20 MG TAB 2 tabs daily for 3 days, 1 t ab daily for 3 days, 1/2 tab daily for 2 days PREDNISONE 83538561383 No Longer Active Aracelis Conklin MD Active AZITHROMYCIN 250 MG TABS 2 po qd x 1 day, then 1 po qd x 4 days AZITHROMYCIN 77263524481 No Longer Active Checo Conklin MD Active PREDNISONE 20 MG TAB 2 tabs daily for 3 days, 1 t ab daily for 3 days, 1/2 tab daily for 2 days PREDNISONE 03115748945 No Longer Active Checo Conklin MD Active ZITHROMAX Z-KARTHIK 250 MG TABS 2 today, then 1 daily for 4 days 201 09/18/28 AZITHROMYCIN 64589321921 No Longer Active Paul Hamlin MD Active FOCALIN XR 10 MG [id number] 1 po q a.m. D EXMETHYLPHENIDATE HCL 36975871440 No Longer Active Paul Hamlin MD Activ e PERCOCET 10-325 MG TABS 1 tablet every 6 hours as needed for pain OXYCODONE-ACETAMINOPHEN 40369714664 No Longer Active Paul Hamlin MD Active LORTAB 5 5-500 MG TABS 1/2 to 1 tablet by mouth flaquito ry 4 hours as needed for pain HYDROCODONE-ACETAMINOPHEN 66216911798 No Longer Active Checo Conklin MD Active FOCALIN XR 15 MG [id number] 1 po q a.m. D EXMETHYLPHENIDATE HCL 18621952662 No Longer Active Checo Conklin MD Activ e ZOFRAN ODT 4 MG TBDP 1 po q6hr PRN Nausea ONDAN SETRON 48749791668 No Longer Active Checo Conklin MD Active PERCOCET 5-325 MG TABS 1 tablet by mouth every 6 hours as needed OXYCODONE-ACETAMINOPHEN 69939168204 No Longer Active Checo Conklin MD Active PYRIDIUM 200 MG TABS take 1 tab po TID prn urinary pain. 0 PHENAZOPYRIDINE HCL 90419534670 No Longer Active Checo Conklin MD Active FLUCONAZOLE 150 MG TABS take 1 tab po qday once 04/06 FLUCONAZOLE 97397936638 No Longer Active Dangelo Rangel MD Acti ve CIPRO 500 MG TAB 1 tablet by mouth twice daily CIPROFLOXACIN HCL 07343010286 No Longer Active Dangelo Rangel MD Active PYRIDIUM 200 MG TABS take 1 tab po TID prn urinary pain. 0 PYRIDIUM 200 MG TABS 4257245 PHENAZOPYRIDINE HCL Inactive PERCOCET 5-325 MG TABS 1 tablet by mouth every 6 hours as needed PERCOCET 5-325 MG TABS 2610749 OXYCODONE-ACETAMINOPHEN I nactive ZOFRAN ODT 4 MG TBDP 1 po q6hr PRN Nausea ZOFRAN ODT 4 MG TBDP 896276 ONDANSETRON Inactive FOCALIN XR 15 MG [id number] 1 po q a.m. F OCALIN XR 15 MG [id number] DEXMETHYLPHENIDATE HCL Inactive LORTAB 5 5-500 MG TABS 1/2 to 1 tablet by mouth flaquito ry 4 hours as needed for pain LORTAB 5 5-500 MG TABS HYDROCODONE-A CETAMINOPHEN Inactive PERCOCET 10-325 MG TABS 1 tablet every 6 hours as needed for pain PERCOCET 10-325 MG TABS 2898837 OXYCODONE-ACETAMINOPHEN Inactive FOCALIN XR 10 MG [id number] 1 po q a.m. F OCALIN XR 10 MG [id number] DEXMETHYLPHENIDATE HCL Inactive CEFDINIR 300 MG CAPS 1 po bid CEFDINIR 300 MG CAPS 20 0346 CEFDINIR Inactive ANTIPYRINE-BENZOCAINE 5.4-1.4 % SOLN 1-2 drops in affected ear ANTIPYRINE-BENZOCAINE 5.4-1.4 % SOLN 334146 BENZOCAINE-ANTIPYRINE I nactive FLONASE 50 MCG/ACT SUSP 1 spray each nostril am and hs FLONASE 50 MCG/ACT SUSP 794735 FLUTICASONE PROPIONATE Inactive PHENERGAN CREAM* 25mg applied to wrist q6hr PRN Nausea PHENERGAN CREAM* Inactive FIORICET 325-50-40 MG TAB 1 tablet by mouth four times daily as needed FIORICET 325-50-40 MG TAB ACETAMINOPHEN-C AFF-BUTALBITAL Inactive TRAZODONE HCL 100 MG TAB 0.5 to 1 po qHS PRN Insomnia TRAZODONE HCL 100 MG TAB 917011 TRAZODONE HCL Inactive CONCERTA 18 MG CR-TABS [...] s prn cough HYDROCODONE-ACETAMINOPHEN 5-325 MG TABS 973109 HYDROCODONE-ACETAMINOPHEN Inactive PHENAZOPYRIDINE HCL 200 MG TABS take 1 tab po TID for bladder pa in PHENAZOPYRIDINE HCL 200 MG TABS 8381807 PHENAZOPYRIDINE HCL Inactive HYDROCODONE-ACETAMINOPHEN 5-325 MG TABS 1 po q 6hr PRN Pain 2013 HYDROCODONE-ACETAMINOPHEN 5-325 MG TABS 050714 HYDROCODONE-ACETAMINOPHEN Inactive CELEXA 20 MG TABS 1 tablet by mouth daily CELEXA 20 MG TABS 764771 CITALOPRAM HYDROBROMIDE Inactive REGLAN 10 MG TAB 1 po TID PRN Nausea REGLAN 10 MG TAB 969660 METOCLOPRAMIDE HCL Inactive LAMISIL 250 MG TAB 1 po qd LAMISIL 250 MG TAB 227545 TERBINAFINE HCL Inactive CIPRO 500 MG TAB 1 tablet by mouth twice daily CIPRO 500 MG TAB 628303 CIPROFLOXACIN HCL Inactive FLUCONAZOLE 150 MG TABS take 1 tab po qday once 04/06 FLUCONAZOLE 150 MG TABS 448604 FLUCONAZOLE Inactive ZITHROMAX Z-KARTHIK 250 MG TABS 2 today, then 1 daily for 4 days 201 09/18/28 ZITHROMAX Z-KARTHIK 250 MG TABS 2969398 AZITHROMYCIN Inac tive PREDNISONE 20 MG TAB 2 tabs daily for 3 days, 1 t ab daily for 3 days, 1/2 tab daily for 2 days PREDNISONE 20 MG TAB 208106 PREDNISON E Inactive AZITHROMYCIN 250 MG TABS 2 po qd x 1 day, then 1 po qd x 4 days AZITHROMYCIN 250 MG TABS 7427197 AZITHROMYCIN Inactiv e PREDNISONE 20 MG TAB 2 tabs daily for 3 days, 1 t ab daily for 3 days, 1/2 tab daily for 2 days PREDNISONE 20 MG TAB 949492 PREDNISON E Inactive CEFDINIR 300 MG CAPS by mouth twice a day CEFDINIR 300 MG CAPS 964885 CEFDINIR Inactive TRIAMCINOLONE ACETONIDE 0.1 % OINT Apply to affected a reas TID for up to 2 weeks TRIAMCINOLONE ACETONIDE 0.1 % OINT 312475 6 TRIAMCINOLONE ACETONIDE Inactive PREDNISONE 20 MG TAB 2 tabs daily for 3 days, 1 t ab daily for 3 days, 1/2 tab daily for 2 days PREDNISONE 20 MG TAB 095841 PREDNISON E Inactive BACTRIM DS 800-160 MG TABS 1 po BID x 7 days 0 BACTRIM DS 800-160 MG TABS SULFAMETHOXAZOLE-TRIMETHOPRIM Inactive CIPRO 500 MG TAB 1 tablet by mouth twice daily CIPRO 500 MG TAB 214307 CIPROFLOXACIN HCL Inactive AZITHROMYCIN 250 MG TABS 2 po qd x 1 day, then 1 po qd x 4 days AZITHROMYCIN 250 MG TABS 8306171 AZITHROMYCIN Inactiv e Immunizations Vaccine Administration Date [...] Panel - Chemistry sodium, serum 139 mmol/L 372-243 2296/10/24 potassium, serum 4.1 mmol/L 3.5-5.2 chloride, serum [...] 0.80 mg/dL 0.00-1.00 cholesterol, serum 147 mg/dL 201-961 2174/10/24 triglyceride, serum, fasting 112 mg/dL 30-200 HDL [...] 5.0-8.5 Encounters Code Encounter Date Provider Facility CPT-32449 Level 3 Est. Patient 14:38:41 CDT Checo Conklin MD [facility] CPT-04034 Level 3 Est. Patient 15:22:03 WIND OPERATIONS SUPERVISOR Thomas reynolds DO [facility] CPT-40545 Level 3 Est. Patient 13:34:17 WIND OPERATIONS SUPERVISOR Checo Conklin MD [facility] CPT-24888 Level 3 Est. Patient 12:29:32 CDT Dangelo arroyo MD [facility] CPT-50943 Level 3 Est. Patient 16:53:02 CDT Checo Conklin MD [facility] CPT-92048 Level 3 Est. Patient 16:37:13 CDT Checo Conklin MD [facility] CPT-01580 Level 3 Est. Patient 16:16:59 CDT Paul Hamlin MD [facility] CPT-21864 Level 3 Est. Patient 14:20:13 CDT Dangelo arroyo MD [facility] CPT-12451 Level 4 Est. Patient 11:29:33 CDT Checo Conklin MD [facility] CPT-25850 Level 3 Est. Patient 17:08:31 CDT Checo Conklin MD [facility] CPT-37472 Level 3 Est. Patient 16:50:42 WIND OPERATIONS SUPERVISOR Checo Conklin MD [facility] CPT-97199 Level 4 Est. Patient 09:26:08 WIND OPERATIONS SUPERVISOR Checo Conklin MD [facility] CPT-62858 Level 3 Est. Patient 11:37:10 CDT Checo Conklin MD [facility] CPT-26259 Level 4 Est. Patient 14:07:38 CDT Checo Conklin MD [facility] CPT-91487 Level 3 Est. Patient 09:54:41 CDT Checo Conklin MD [facility] CPT-04303 Level 3 Est. Patient 11:10:54 CDT Paul Hamlin MD [facility] CPT-44744 Level 3 Est. Patient 14:16:56 WIND OPERATIONS SUPERVISOR Checo Conklin MD [facility] CPT-80244 Level 3 Est. Patient 11:04:11 WIND OPERATIONS SUPERVISOR Checo Conklin MD [facility] CPT-12325 Level 3 Est. Patient 17:09:26 CDT Dangelo arroyo MD [facility] CPT-12597 Level 3 Est. Patient 16:54:37 CDT Checo Conklin MD [facility] Procedures Code Procedure Name Date Entry Date Standard Desc ription CPT-OV Office Visit 11:31:28 CDT CPT-48342 Tubersol 09:39:29 CDT CPT-J2550 Phenergan 25 mg (Promethazine) 13:59:02 WIND OPERATIONS SUPERVISOR CPT-J1885 Toradol 60 mg (Ketorolac) 13:59:02 WIND OPERATIONS SUPERVISOR 2012
--- OUTSIDE RECORDS SUMMARY | 2019-09-29 02:39 | XMS REPORT | Clinical Summary ---
Author Author Admin, Bethany Ayala [facility] Address Unknown Phone Allergies, Adverse Reactions, [...] TABS 1 po BID PRN anxiety ALPRAZOLAM 41591486302 Active Checo Conklin MD Active CHANTIX STARTING MONTH KARTHIK 0.5 MG X 11 & 1 MG X 42 TAB S 0.5mg daily for 3 days, then 0.5mg BID for 4 days, then 1mg BID VARENICL INE TARTRATE 80896012697 Active Checo Conklin MD Active CONCERTA 18 MG CR-TABS 1 po q a.m. METHYLPHENID ATE HCL 68611877297 No Longer Active Checo Conklin MD Active REGLAN 10 MG TAB 1 po TID PRN Nausea METOCLOPRA MIDE HCL 99263216982 Active Checo Conklin MD Active AMBIEN 5 MG TAB 1 po qHS PRN Insomnia ZOLPIDEM TARTRATE 35820651291 Active Checo Conklin MD Active TRAZODONE HCL 100 MG TAB 0.5 to 1 po qHS PRN Insomnia TRAZODONE HCL 92716586865 No Longer Active Checo Conklin MD Acti ve FIORICET 325-50-40 MG TAB 1 tablet by mouth four times daily as needed [id number] 24387316577 No Longer Active Checo Conklin MD Active PHENERGAN CREAM* 25mg applied to wrist q6hr PRN Nausea PHENERGAN CREAM* No Longer Active Checo Conklin MD A ctive SIMVASTATIN 20 MG TABS 1 tab daily at bedtime S IMVASTATIN 93736606833 Active Checo Conklin MD Active LAMISIL 250 MG TAB 1 po qd TERBINAFINE HCL 6759777453 1 Active Checo Conklin MD Active FLONASE 50 MCG/ACT SUSP 1 spray each nostril am and hs FLUTICASONE PROPIONATE 20932007386 No Longer Active Checo Conklin MD Activ e ANTIPYRINE-BENZOCAINE 5.4-1.4 % SOLN 1-2 drops in affected ear BENZOCAINE-ANTIPYRINE 07763591911 No Longer Active Checo Conklin MD Active CEFDINIR 300 MG CAPS 1 po bid CEFDINIR 84465257 120 No Longer Active Checo Conklin MD Active PREDNISONE 20 MG TAB 2 tabs daily for 3 days, 1 t ab daily for 3 days, 1/2 tab daily for 2 days PREDNISONE 66711286815 No Longer Active Aracelis Conklin MD Active AZITHROMYCIN 250 MG TABS 2 po qd x 1 day, then 1 po qd x 4 days AZITHROMYCIN 00758477203 No Longer Active Checo Conklin MD Active PREDNISONE 20 MG TAB 2 tabs daily for 3 days, 1 t ab daily for 3 days, 1/2 tab daily for 2 days PREDNISONE 16137422571 No Longer Active Checo Conklin MD Active ZITHROMAX Z-KARTHIK 250 MG TABS 2 today, then 1 daily for 4 days 201 09/18/28 AZITHROMYCIN 05517587439 No Longer Active Paul Hamlin MD Active FOCALIN XR 10 MG [id number] 1 po q a.m. D EXMETHYLPHENIDATE HCL 51109015523 No Longer Active Paul Hamlin MD Activ e PERCOCET 10-325 MG TABS 1 tablet every 6 hours as needed for pain OXYCODONE-ACETAMINOPHEN 70193969537 No Longer Active Paul Hamlin MD Active LORTAB 5 5-500 MG TABS 1/2 to 1 tablet by mouth flaquito ry 4 hours as needed for pain HYDROCODONE-ACETAMINOPHEN 75215772309 No Longer Active Checo Conklin MD Active FOCALIN XR 15 MG [id number] 1 po q a.m. D EXMETHYLPHENIDATE HCL 31560806058 No Longer Active Checo Conklin MD Activ e ZOFRAN ODT 4 MG TBDP 1 po q6hr PRN Nausea ONDAN SETRON 35635330169 No Longer Active Checo Conklin MD Active PERCOCET 5-325 MG TABS 1 tablet by mouth every 6 hours as needed OXYCODONE-ACETAMINOPHEN 10544085808 No Longer Active Checo Conklin MD Active PYRIDIUM 200 MG TABS take 1 tab po TID prn urinary pain. 0 PHENAZOPYRIDINE HCL 63106586073 No Longer Active Checo Conklin MD Active FLUCONAZOLE 150 MG TABS take 1 tab po qday once 04/06 FLUCONAZOLE 43710040338 No Longer Active Dangelo Rangel MD Acti ve CIPRO 500 MG TAB 1 tablet by mouth twice daily CIPROFLOXACIN HCL 73013208076 No Longer Active Dangelo Rangel MD Active PYRIDIUM 200 MG TABS take 1 tab po TID prn urinary pain. 0 PYRIDIUM 200 MG TABS 2300009 PHENAZOPYRIDINE HCL Inactive PERCOCET 5-325 MG TABS 1 tablet by mouth every 6 hours as needed PERCOCET 5-325 MG TABS 2969215 OXYCODONE-ACETAMINOPHEN I nactive ZOFRAN ODT 4 MG TBDP 1 po q6hr PRN Nausea ZOFRAN ODT 4 MG TBDP 249492 ONDANSETRON Inactive FOCALIN XR 15 MG [id number] 1 po q a.m. F OCALIN XR 15 MG [id number] DEXMETHYLPHENIDATE HCL Inactive LORTAB 5 5-500 MG TABS 1/2 to 1 tablet by mouth flaquito ry 4 hours as needed for pain LORTAB 5 5-500 MG TABS HYDROCODONE-A CETAMINOPHEN Inactive PERCOCET 10-325 MG TABS 1 tablet every 6 hours as needed for pain PERCOCET 10-325 MG TABS 6546661 OXYCODONE-ACETAMINOPHEN Inactive FOCALIN XR 10 MG [id number] 1 po q a.m. F OCALIN XR 10 MG [id number] DEXMETHYLPHENIDATE HCL Inactive CEFDINIR 300 MG CAPS 1 po bid CEFDINIR 300 MG CAPS 20 0346 CEFDINIR Inactive ANTIPYRINE-BENZOCAINE 5.4-1.4 % SOLN 1-2 drops in affected ear ANTIPYRINE-BENZOCAINE 5.4-1.4 % SOLN 029949 BENZOCAINE-ANTIPYRINE I nactive FLONASE 50 MCG/ACT SUSP 1 spray each nostril am and hs FLONASE 50 MCG/ACT SUSP 402170 FLUTICASONE PROPIONATE Inactive PHENERGAN CREAM* 25mg applied to wrist q6hr PRN Nausea PHENERGAN CREAM* Inactive FIORICET 325-50-40 MG TAB 1 tablet by mouth four times daily as needed FIORICET 325-50-40 MG TAB ACETAMINOPHEN-C AFF-BUTALBITAL Inactive TRAZODONE HCL 100 MG TAB 0.5 to 1 po qHS PRN Insomnia TRAZODONE HCL 100 MG TAB 736396 TRAZODONE HCL Inactive CONCERTA 18 MG CR-TABS 1 po q a.m. CONCERTA 18 MG CR-TABS METHYLPHENIDATE HCL Inactive CIPRO 500 MG TAB 1 tablet by mouth twice daily CIPRO 500 MG TAB 108997 CIPROFLOXACIN HCL Inactive FLUCONAZOLE 150 MG TABS take 1 tab po qday once 04/06 FLUCONAZOLE 150 MG TABS 739294 FLUCONAZOLE Inactive ZITHROMAX Z-KARTHIK 250 MG TABS 2 today, then 1 daily for 4 days 201 09/18/28 ZITHROMAX Z-KARTHIK 250 MG TABS 5865679 AZITHROMYCIN Inac tive PREDNISONE 20 MG TAB 2 tabs daily for 3 days, 1 t ab daily for 3 days, 1/2 tab daily for 2 days PREDNISONE 20 MG TAB 503927 PREDNISON E Inactive AZITHROMYCIN 250 MG TABS 2 po qd x 1 day, then 1 po qd x 4 days AZITHROMYCIN 250 MG TABS 4389731 AZITHROMYCIN Inactiv e PREDNISONE 20 MG TAB 2 tabs daily for 3 days, 1 t ab daily for 3 days, 1/2 tab daily for 2 days PREDNISONE 20 MG TAB 300922 PREDNISON E Inactive Vital Signs Date Name [...] Panel - Chemistry sodium, serum 139 mmol/L 674-902 4102/01/09 potassium, serum 4.3 mmol/L 3.5-5.2 chloride, serum [...] 1.10 mg/dL 0.00-1.00 cholesterol, serum 222 mg/dL 383-185 6962/01/09 triglyceride, serum, fasting 92 mg/dL 30-200 HDL [...] 11 .6-14.8 platelet count 179 10^3/MM^3 10*3/mm3 272-954 1748/01/09 lymphocytes as percent of blood leukocytes 37.5 % 20.5-51.1 monocytes as percent of blood leukocytes 8.7 % 1.7-9.3 neutrophils as percent of blood leukocytes 51.6 % 42.2-75.2 leukocyte count, blood 5.5 10^3/MM^3 10*3/mm3 4.6-10.2 Encounters Code Encounter Date Provider Facility CPT-54054 Level 3 Est. Patient 17:08:31 CDT Checo Conklin MD [facility] CPT-30969 Level 3 Est. Patient 16:50:42 SERVICE STATION MANAGER Checo Conklin MD [facility] CPT-14920 Level 4 Est. Patient 09:26:08 SERVICE STATION MANAGER Checo Conklin MD [facility] CPT-21562 Level 3 Est. Patient 11:37:10 CDT Checo Conklin MD [facility] CPT-02531 Level 4 Est. Patient 14:07:38 CDT Checo Conklin MD [facility] CPT-62298 Level 3 Est. Patient 09:54:41 CDT Checo Conklin MD [facility] CPT-73722 Level 3 Est. Patient 11:10:54 CDT Paul Hamlin MD [facility] CPT-93976 Level 3 Est. Patient 14:16:56 SERVICE STATION MANAGER Checo Conklin MD [facility] CPT-68923 Level 3 Est. Patient 11:04:11 SERVICE STATION MANAGER Checo Conklin MD [facility] CPT-50063 Level 3 Est. Patient 17:09:26 CDT Dangelo arroyo MD [facility] CPT-01411 Level 3 Est. Patient 16:54:37 CDT Checo Conklin MD [facility] Procedures Code Procedure Name Date Entry Date Standard Desc ription CPT-J2550 Phenergan 25 mg (Promethazine) 13:59:02 SERVICE STATION MANAGER CPT-J1885 Toradol 60 mg (Ketorolac) 13:59:02 SERVICE STATION MANAGER 2012
--- OUTSIDE RECORDS SUMMARY | 2019-09-29 02:39 | XMS REPORT | Continuity of Care Document ---
Demographics x Preferred Language Unknown Marital Status Unknown Uatsdin Affiliation Unknown Race Unknown Ethnic Group Unknown Author Organization Unknown Address Unknown Phone Unavailable Allergies Active Description Code Type Severity Reaction Onset Reported/Identified Relationship to Patient Clinical Status Yes Codeine 1550 Drug Allergy N/A N/A Yes codeine Drug N/A vomiting Yes No known allergies Drug N/A N/A Yes codeine [id number] Drug Allergy Unknown Vomiting 09/27/2019 Medications There is no data. Problems Date Dx Coded Attending Type Code Diagnosis Diagnosed By 11/13/2014 GRACIE REYES 726.64 PATELLAR TENDINITIS 11/13/2014 GRACIE REYES V57.1 PHYSICAL THERAPY NEC 12/02/2014 GRACIE REYES 726.64 PATELLAR TENDINITIS 12/02/2014 GRACIE REYES V57.1 PHYSICAL THERAPY NEC 03/10/2017 Checo Conklin MD R29.6 Repeated falls 06/13/2017 Checo Conklin MD R10.8 4 Abdominal pain, generalized 06/13/2017 Checo Conklin MD R11.0 Nausea 07/28/2017 Checo Conklin MD K29.6 0 Helicobacter pylori gastritis 12/15/2017 Checo Conklin MD M79.6 01 Arm pain, right 12/15/2017 Checo Conklin MD Z68.2 5 Body Mass Index 25.0-25.9 Adult 01/10/2018 Checo Conklin MD R60.1 Generalized edema 02/16/2018 Checo Conklin MD E66.3 Overweight 02/16/2018 Checo Conklin MD Z68.2 7 Body Mass Index 27.0-27.9 Adult 03/05/2018 Checo Conklin MD Z68.2 6 Body Mass Index 26.0-26.9 Adult 02/04/2019 Checo Conklin MD I10 Hypertension 02/04/2019 Checo Conklin MD Z00.0 0 Wellness examination, routine medical 02/04/2019 Checo Conklin MD Z13.6 Screening for cardiovascular condition 02/04/2019 Checo Conklin MD Z68.2 5 BMI 25-25.9 02/27/2019 Checo Conklin MD Z76.0 Medication refill 04/10/2019 AGATHA FINLEY Reason For Visit Z12.31 Encounter for screening mammogram for ma lignant neoplasm of breast 09/23/2019 YANDEL CEDILLO, BRENNA Tinajero Ot Z01.818 ENCOUNTER FOR OTHER PREPROCEDURAL EXAMIN Procedures Code Description [place] [address] PT E VALUATION 11/13/2014 39972 ULTR ASOUND THERAPY 11/13/2014 58458 THER APEUTIC EXERCISES 11/13/2014 Results Test Result Range Methicillin resistant Staphylococcus aur eus (MRSA) screening culture - 09/27/19 08:50 Methicillin resistant Staphylococcus aureus (MRSA) scr eening culture NEG NRG Complete blood count (CBC) with automate d white blood cell (WBC) differential - 09/27/19 09:00 Blood leukocytes automated count (number/volume) 10.7 10*3/uL 4.3-11.0 Blood erythrocytes automated count (number/volume) 4.32 10*6/uL 4.35-5.85 Venous blood hemoglobin measurement (mass/volume) 14.1 g/dL 11.5-16.0 Blood hematocrit (volume fraction) 42 % 35-52 Automated erythrocyte mean corpuscular volume 97 [ foz_us] 80-99 Automated erythrocyte mean corpuscular h emoglobin (mass per erythrocyte) 33 pg 25-34 Automated erythrocyte mean corpuscular h emoglobin concentration measurement (mass/volume) 34 g/dL 32-36 Automated erythrocyte distribution width ratio 12. 9 % 10.0- 14.5 Automated blood platelet count (count/volume) 206 10*3/uL 130-400 Automated blood platelet mean volume measurement 11.3 [foz_us] 7.4-10.4 Automated blood neutrophils/100 leukocytes 70 % 42-75 Automated blood lymphocytes/100 leukocytes 21 % 12-44 Blood monocytes/100 leukocytes 7 % 0-12 Automated blood eosinophils/100 leukocytes 1 % 0-10 Automated blood basophils/100 leukocytes 0 % 0-10 Blood neutrophils automated count (number/volume) 7.4 10*3 1.8-7.8 Blood lymphocytes automated count (number/volume) 2.3 10*3 1.0-4.0 Blood monocytes automated count (number/volume) 0. 8 10*3 0.0-1.0 Automated eosinophil count 0.1 10*3/uL 0 .0-0.3 Automated blood basophil count (count/volume) 0.0 10*3/uL 0.0-0.1 Whole blood basic metabolic panel - 09/14 10/03 09:00 Serum or plasma sodium measurement (moles/volume) 139 mmol/L 135-145 Serum or plasma potassium measurement (moles/volume) 4.1 mmol/L 3.6-5.0 Serum or plasma chloride measurement (moles/volume) 107 mmol/L 98-107 Carbon dioxide 22 mmol/L 21-32 Serum or plasma anion gap determination (moles/volume) 10 mmol/L 5-14 Serum or plasma urea nitrogen measurement (mass/volume ) 11 mg/dL 7-18 Serum or plasma creatinine measurement (mass/volume) 0.70 mg/dL 0.60-1.30 Serum or plasma urea nitrogen/creatinine mass ratio 16 NRG Serum or plasma creatinine measurement w ith calculation of estimated glomerular filtration rate > NRG Serum or plasma glucose measurement (mass/volume) 95 mg/dL 70-105 Serum or plasma calcium measurement (mass/volume) 8.8 mg/dL 8.5-10.1 Encounters ACCT No. Visit Date/Time Discharge Status Pt. Type Provider Facility Loc./Unit Complaint [id number] 11/14/2014 00:01:00 12/02/2014 09: 55:00 DIS Outpatient GRACIE REYES [facility] PT [id number] 11/03/2014 16:51:00 11/13/2014 23: 59:00 [facility] [id number] 10/20/2014 10:15:00 10/20/2014 10:15 :00 DIS Outpatient GRACIE REYES [facility] RAD [id number] 10/20/2014 10:16:13 Document Registration [id number] 04/10/2019 17:09:31 9 23:59:59 DIS Outpatient AGATHA FINLEY [facility] RAD screening [id number] 07/18/2018 14:54:58 9 23:59:59 [facility] lab [id number] 07/18/2018 14:30:00 9 23:59:59 DIS Outpatient AGATHA FINLEY [facility] [id number] 06/01/2018 09:45:00 8 23:59:59 CLS Emergency THIEN CID [facility] ED ed vist [id number] 05/31/2018 16:21:03 8 23:59:59 DIS Outpatient AGATHA FINLEY [facility] Lab lab [id number] 05/31/2018 16:15:00 8 23:59:59 DIS Outpatient AGATHA FINLEY [facility] [id number] 05/11/2018 15:42:44 8 23:59:59 DIS Outpatient AGATHA FINLEY [facility] [id number] 05/02/2018 16:07:45 8 23:59:59 DIS Outpatient AGATHA FINLEY [facility] Lab lab [id number] 05/02/2018 16:07:16 8 23:59:59 DIS Outpatient AGATHA FINLEY [facility] [id number] 04/19/2018 16:55:36 8 23:59:59 DIS Outpatient AGATHA FINLEY [facility] Lab lab [id number] 04/19/2018 16:45:00 8 23:59:59 DIS Outpatient AGATHA FINLEY [facility] [id number] 04/06/2018 12:58:02 8 23:59:59 DIS Outpatient TUSHAR AGATHA [facility] RAD dyastolic htn, leong, low extremity edema [id number] 04/06/2018 09:30:00 8 23:59:59 CLS Outpatient AGATHA FINLEY [facility] [id number] 04/04/2018 10:37:28 8 23:59:59 [facility] [id number] 04/04/2018 09:30:00 8 23:59:59 DIS Outpatient AGATHA FINLEY [facility] [id number] 03/30/2018 15:54:53 8 23:59:59 DIS Outpatient AGATHA FINLEY [facility] Lab lab [id number] 03/30/2018 15:45:00 8 23:59:59 DIS Outpatient AGATHA FINLEY [facility] [id number] 03/26/2018 08:30:00 8 23:59:59 DIS Outpatient AGATHA FINLEY [facility] [id number] 03/12/2018 15:13:58 8 23:59:59 DIS Outpatient AGATHA FINLEY [facility] Lab lab/xray [id number] 03/12/2018 14:32:59 8 23:59:59 DIS Outpatient AGATHA FINLEY [facility] [id number] 12/20/2017 11:20:00 8 23:59:59 CLS Outpatient Mimi Grimaldo [facility] [id number] 06/15/2017 10:29:00 7 15:05:00 DIS Emergency KEREN JETT [facility] ED abd pain [id number] 04/12/2019 11:33:53 ACT Unknown Katerin CEDILLO, Checo [id number] 09/27/2019 08:34:00 14:00:00 DIS Outpatient BRENNA HUMPHRIES MD [facility] SDC TURBINATE HYPERTROPHY [id number] 09/23/2019 05:39:00 020 10:39:00 DIS Outpatient BRENNA HUMPHRIES MD [facility] PREOP TURBINATE HYPERTROPHY
--- OUTSIDE RECORDS SUMMARY | 2019-09-29 02:39 | XMS REPORT | Clinical Summary ---
Author Author Admin, Bethany Ayala [facility] Address Unknown Phone Allergies, Adverse Reactions, Alerts [...] tablet by mouth daily CITAL OPRAM HYDROBROMIDE 06757667268 Active Checo Conklin MD Active BUPROPION HCL (SMOKING DETER) 150 MG [id number] 1 a day for 1 week then 1 twice a day BUPROPION HCL (SMOKING DETER) 83058255583 No Lo nger Active Checo Conklin MD Active SIMVASTATIN 20 MG TABS 1 po qd SIMVASTATIN 6538197351 4 Active Checo Conklin MD Active CHANTIX STARTING MONTH KARTHIK 0.5 MG X 11 & 1 MG X 42 TAB S 0.5mg daily for 3 days, then 0.5mg BID for 4 days, then 1mg BID VARENICLINE TARTRATE 39349778906 No Longer Active Checo Conklin MD Activ e XANAX 0.5 MG TABS 1 po BID PRN anxiety ALPRAZOLAM 88516316478 Active Checo Conklin MD Active CONCERTA 18 MG CR-TABS 1 po q a.m. METHYLPHENID ATE HCL 67411317791 No Longer Active Checo Conklin MD Active REGLAN 10 MG TAB 1 po TID PRN Nausea METOCLOPRA MIDE HCL 48435173296 Active Checo Conklin MD Active AMBIEN 5 MG TAB 1 po qHS PRN Insomnia ZOLPIDEM TARTRATE 30672930106 Active Paul Hamlin MD Active TRAZODONE HCL 100 MG TAB 0.5 to 1 po qHS PRN Insomnia TRAZODONE HCL 82234083519 No Longer Active Checo Conklin MD Acti ve FIORICET 325-50-40 MG TAB 1 tablet by mouth four times daily as needed [id number] 40821455581 No Longer Active Checo Conklin MD Active PHENERGAN CREAM* 25mg applied to wrist q6hr PRN Nausea PHENERGAN CREAM* No Longer Active Checo Conklin MD A ctive LAMISIL 250 MG TAB 1 po qd TERBINAFINE HCL 0507635078 1 Active Checo Conklin MD Active FLONASE 50 MCG/ACT SUSP 1 spray each nostril am and hs FLUTICASONE PROPIONATE 93612154708 No Longer Active Checo Conklin MD Activ e ANTIPYRINE-BENZOCAINE 5.4-1.4 % SOLN 1-2 drops in affected ear BENZOCAINE-ANTIPYRINE 55705913218 No Longer Active Checo Conklin MD Active CEFDINIR 300 MG CAPS 1 po bid CEFDINIR 27483923 120 No Longer Active Checo Conklin MD Active PREDNISONE 20 MG TAB 2 tabs daily for 3 days, 1 t ab daily for 3 days, 1/2 tab daily for 2 days PREDNISONE 70380340923 No Longer Active Aracelis Conklin MD Active AZITHROMYCIN 250 MG TABS 2 po qd x 1 day, then 1 po qd x 4 days AZITHROMYCIN 94518831319 No Longer Active Checo Conklin MD Active PREDNISONE 20 MG TAB 2 tabs daily for 3 days, 1 t ab daily for 3 days, 1/2 tab daily for 2 days PREDNISONE 30255844499 No Longer Active Checo Conklin MD Active ZITHROMAX Z-KARTHIK 250 MG TABS 2 today, then 1 daily for 4 days 201 09/18/28 AZITHROMYCIN 37383082662 No Longer Active Paul Hamlin MD Active FOCALIN XR 10 MG [id number] 1 po q a.m. D EXMETHYLPHENIDATE HCL 37364144572 No Longer Active Paul Hamlin MD Activ e PERCOCET 10-325 MG TABS 1 tablet every 6 hours as needed for pain OXYCODONE-ACETAMINOPHEN 81872240969 No Longer Active Paul Hamlin MD Active LORTAB 5 5-500 MG TABS 1/2 to 1 tablet by mouth flaquito ry 4 hours as needed for pain HYDROCODONE-ACETAMINOPHEN 50440601722 No Longer Active Checo Conklin MD Active FOCALIN XR 15 MG [id number] 1 po q a.m. D EXMETHYLPHENIDATE HCL 09123798310 No Longer Active Checo Conklin MD Activ e ZOFRAN ODT 4 MG TBDP 1 po q6hr PRN Nausea ONDAN SETRON 71524367100 No Longer Active Checo Conklin MD Active PERCOCET 5-325 MG TABS 1 tablet by mouth every 6 hours as needed OXYCODONE-ACETAMINOPHEN 15215303399 No Longer Active Checo Conklin MD Active PYRIDIUM 200 MG TABS take 1 tab po TID prn urinary pain. 0 PHENAZOPYRIDINE HCL 88217715416 No Longer Active Checo Conklin MD Active FLUCONAZOLE 150 MG TABS take 1 tab po qday once 04/06 FLUCONAZOLE 22457012972 No Longer Active Dangelo Rangel MD Acti ve CIPRO 500 MG TAB 1 tablet by mouth twice daily CIPROFLOXACIN HCL 13634682126 No Longer Active Dangelo Rangel MD Active PYRIDIUM 200 MG TABS take 1 tab po TID prn urinary pain. 0 PYRIDIUM 200 MG TABS 0428044 PHENAZOPYRIDINE HCL Inactive PERCOCET 5-325 MG TABS 1 tablet by mouth every 6 hours as needed PERCOCET 5-325 MG TABS 4177017 OXYCODONE-ACETAMINOPHEN I nactive ZOFRAN ODT 4 MG TBDP 1 po q6hr PRN Nausea ZOFRAN ODT 4 MG TBDP 281595 ONDANSETRON Inactive FOCALIN XR 15 MG [id number] 1 po q a.m. F OCALIN XR 15 MG [id number] DEXMETHYLPHENIDATE HCL Inactive LORTAB 5 5-500 MG TABS 1/2 to 1 tablet by mouth flaquito ry 4 hours as needed for pain LORTAB 5 5-500 MG TABS HYDROCODONE-A CETAMINOPHEN Inactive PERCOCET 10-325 MG TABS 1 tablet every 6 hours as needed for pain PERCOCET 10-325 MG TABS 2138607 OXYCODONE-ACETAMINOPHEN Inactive FOCALIN XR 10 MG [id number] 1 po q a.m. F OCALIN XR 10 MG [id number] DEXMETHYLPHENIDATE HCL Inactive CEFDINIR 300 MG CAPS 1 po bid CEFDINIR 300 MG CAPS 20 0346 CEFDINIR Inactive ANTIPYRINE-BENZOCAINE 5.4-1.4 % SOLN 1-2 drops in affected ear ANTIPYRINE-BENZOCAINE 5.4-1.4 % SOLN 285906 BENZOCAINE-ANTIPYRINE I nactive FLONASE 50 MCG/ACT SUSP 1 spray each nostril am and hs FLONASE 50 MCG/ACT SUSP 760050 FLUTICASONE PROPIONATE Inactive PHENERGAN CREAM* 25mg applied to wrist q6hr PRN Nausea PHENERGAN CREAM* Inactive FIORICET 325-50-40 MG TAB 1 tablet by mouth four times daily as needed FIORICET 325-50-40 MG TAB ACETAMINOPHEN-C AFF-BUTALBITAL Inactive TRAZODONE HCL 100 MG TAB 0.5 to 1 po qHS PRN Insomnia TRAZODONE HCL 100 MG TAB 528290 TRAZODONE HCL Inactive CONCERTA 18 MG CR-TABS [...] mouth twice daily CIPRO 500 MG TAB 994906 CIPROFLOXACIN HCL Inactive FLUCONAZOLE 150 MG TABS take 1 tab po qday once 04/06 FLUCONAZOLE 150 MG TABS 995143 FLUCONAZOLE Inactive ZITHROMAX Z-KARTHIK 250 MG TABS 2 today, then 1 daily for 4 days 201 09/18/28 ZITHROMAX Z-KARTHIK 250 MG TABS 4202403 AZITHROMYCIN Inac tive PREDNISONE 20 MG TAB 2 tabs daily for 3 days, 1 t ab daily for 3 days, 1/2 tab daily for 2 days PREDNISONE 20 MG TAB 917142 PREDNISON E Inactive AZITHROMYCIN 250 MG TABS 2 po qd x 1 day, then 1 po qd x 4 days AZITHROMYCIN 250 MG TABS 3349250 AZITHROMYCIN Inactiv e PREDNISONE 20 MG TAB 2 tabs daily for 3 days, 1 t ab daily for 3 days, 1/2 tab daily for 2 days PREDNISONE 20 MG TAB 306739 PREDNISON E Inactive Vital Signs Date Name [...] Panel - Chemistry sodium, serum 139 mmol/L 181-409 6627/01/09 potassium, serum 4.3 mmol/L 3.5-5.2 chloride, serum [...] 1.10 mg/dL 0.00-1.00 cholesterol, serum 222 mg/dL 414-917 6816/01/09 triglyceride, serum, fasting 92 mg/dL 30-200 HDL [...] 142-424 Encounters Code Encounter Date Provider Facility CPT-54498 Level 4 Est. Patient 11:29:33 CDT Checo Conklin MD [facility] CPT-36480 Level 3 Est. Patient 17:08:31 CDT Checo Conklin MD [facility] CPT-92387 Level 3 Est. Patient 16:50:42 LOMBARDI DEVELOPER Checo Conklin MD [facility] CPT-20946 Level 4 Est. Patient 09:26:08 LOMBARDI DEVELOPER Checo Conklin MD [facility] CPT-81686 Level 3 Est. Patient 11:37:10 CDT Checo Conklin MD [facility] CPT-28635 Level 4 Est. Patient 14:07:38 CDT Checo Conklin MD [facility] CPT-55895 Level 3 Est. Patient 09:54:41 CDT Checo Conklin MD [facility] CPT-00682 Level 3 Est. Patient 11:10:54 CDT Paul Hamlin MD [facility] CPT-06030 Level 3 Est. Patient 14:16:56 LOMBARDI DEVELOPER Checo Conklin MD [facility] CPT-19830 Level 3 Est. Patient 11:04:11 LOMBARDI DEVELOPER Checo Conklin MD [facility] CPT-36835 Level 3 Est. Patient 17:09:26 CDT Dangelo arroyo MD [facility] CPT-40864 Level 3 Est. Patient 16:54:37 CDT Checo Conklin MD [facility] Procedures Code Procedure Name Date Entry Date Standard Desc ription CPT-J2550 Phenergan 25 mg (Promethazine) 13:59:02 LOMBARDI DEVELOPER CPT-J1885 Toradol 60 mg (Ketorolac) 13:59:02 LOMBARDI DEVELOPER 2012
--- OUTSIDE RECORDS SUMMARY | 2019-09-29 02:39 | XMS REPORT | Clinical Summary ---
[...] 1 po qd x 4 days AZITHROMYCIN 15333150427 No Longer Active Checo Conklin MD Active HYDROCODONE-ACETAMINOPHEN 5-325 MG TABS 1 po q 6hr PRN Pain 2013 HYDROCODONE-ACETAMINOPHEN 25404947859 No Longer Active Lenora Conklin MD Active PHENAZOPYRIDINE HCL 200 MG TABS take 1 tab po TID for bladder pa in PHENAZOPYRIDINE HCL 53364166624 No Longer Active Checo Joshua Active CIPRO 500 MG TAB 1 tablet by mouth twice daily CIPROFLOXACIN HCL 51463990616 No Longer Active Dangelo Rangel MD Active HYDROCODONE-ACETAMINOPHEN 5-325 MG TABS 1/2 to 1 po q 4 hour s prn cough HYDROCODONE-ACETAMINOPHEN 46582974713 No Longer Activ e Dangelo Rangel MD Active BACTRIM DS 800-160 MG TABS 1 po BID x 7 days 0 SULFAMETHOXAZOLE-TRIMETHOPRIM 10183279548 No Longer Active Checo Conklin MD Active PREDNISONE 20 MG TAB 2 tabs daily for 3 days, 1 t ab daily for 3 days, 1/2 tab daily for 2 days PREDNISONE 04642659255 No Longer Active Checo Conklin MD Active TRIAMCINOLONE ACETONIDE 0.1 % OINT Apply to affected a reas TID for up to 2 weeks TRIAMCINOLONE ACETONIDE 99001801026 No Longer A ctive Checo Conklin MD Active CEFDINIR 300 MG CAPS by mouth twice a day CEFDI JAZZY 36159941752 No Longer Active Dangeol Rangel MD Active CELEXA 20 MG TABS 1 tablet by mouth daily CITAL OPRAM HYDROBROMIDE 89850693276 Active Checo Conklin MD Active BUPROPION HCL (SMOKING DETER) 150 MG [id number] 1 a day for 1 week then 1 twice a day BUPROPION HCL (SMOKING DETER) 13502489593 No Lo nger Active Checo Conklin MD Active SIMVASTATIN 20 MG TABS 1 po qd SIMVASTATIN 0666127652 5 Active Checo Conklin MD Active CHANTIX STARTING MONTH KARTHIK 0.5 MG X 11 & 1 MG X 42 TAB S 0.5mg daily for 3 days, then 0.5mg BID for 4 days, then 1mg BID VARENICLINE TARTRATE 46328027265 No Longer Active Checo Conklin MD Activ e XANAX 0.5 MG TABS 1 po BID PRN anxiety ALPRAZOLAM 76535745104 Active Checo Conklin MD Active CONCERTA 18 MG CR-TABS 1 po q a.m. METHYLPHENID ATE HCL 73161594835 No Longer Active Checo Conklin MD Active REGLAN 10 MG TAB 1 po TID PRN Nausea METOCLOPRA MIDE HCL 05395519471 Active Checo Conklin MD Active AMBIEN 5 MG TAB 1 po qHS PRN Insomnia ZOLPIDEM TARTRATE 96235607018 Active Checo Conklin MD Active TRAZODONE HCL 100 MG TAB 0.5 to 1 po qHS PRN Insomnia TRAZODONE HCL 22872628385 No Longer Active Checo Conklin MD Acti ve FIORICET 325-50-40 MG TAB 1 tablet by mouth four times daily as needed [id number] 35043440886 No Longer Active Checo Conklin MD Active PHENERGAN CREAM* 25mg applied to wrist q6hr PRN Nausea PHENERGAN CREAM* No Longer Active Checo Conklin MD A ctive LAMISIL 250 MG TAB 1 po qd TERBINAFINE HCL 5133587067 1 Active Checo Conklin MD Active FLONASE 50 MCG/ACT SUSP 1 spray each nostril am and hs FLUTICASONE PROPIONATE 14884799031 No Longer Active Checo Conklin MD Activ e ANTIPYRINE-BENZOCAINE 5.4-1.4 % SOLN 1-2 drops in affected ear BENZOCAINE-ANTIPYRINE 04709238109 No Longer Active Checo Conklin MD Active CEFDINIR 300 MG CAPS 1 po bid CEFDINIR 73308024 120 No Longer Active Checo Conklin MD Active PREDNISONE 20 MG TAB 2 tabs daily for 3 days, 1 t ab daily for 3 days, 1/2 tab daily for 2 days PREDNISONE 62894849939 No Longer Active Aracelis Conklin MD Active AZITHROMYCIN 250 MG TABS 2 po qd x 1 day, then 1 po qd x 4 days AZITHROMYCIN 86632733426 No Longer Active Checo Conklin MD Active PREDNISONE 20 MG TAB 2 tabs daily for 3 days, 1 t ab daily for 3 days, 1/2 tab daily for 2 days PREDNISONE 96871577697 No Longer Active Checo Conklin MD Active ZITHROMAX Z-KARTHIK 250 MG TABS 2 today, then 1 daily for 4 days 201 09/18/28 AZITHROMYCIN 17264730271 No Longer Active Paul Hamlin MD Active FOCALIN XR 10 MG [id number] 1 po q a.m. D EXMETHYLPHENIDATE HCL 52869042098 No Longer Active Paul Hamlin MD Activ e PERCOCET 10-325 MG TABS 1 tablet every 6 hours as needed for pain OXYCODONE-ACETAMINOPHEN 35166013037 No Longer Active Paul Hamlin MD Active LORTAB 5 5-500 MG TABS 1/2 to 1 tablet by mouth flaquito ry 4 hours as needed for pain HYDROCODONE-ACETAMINOPHEN 77230845408 No Longer Active Checo Conklin MD Active FOCALIN XR 15 MG [id number] 1 po q a.m. D EXMETHYLPHENIDATE HCL 52189588317 No Longer Active Checo Conklin MD Activ e ZOFRAN ODT 4 MG TBDP 1 po q6hr PRN Nausea ONDAN SETRON 69373608616 No Longer Active Checo Conklin MD Active PERCOCET 5-325 MG TABS 1 tablet by mouth every 6 hours as needed OXYCODONE-ACETAMINOPHEN 34447698546 No Longer Active Checo Conklin MD Active PYRIDIUM 200 MG TABS take 1 tab po TID prn urinary pain. 0 PHENAZOPYRIDINE HCL 09372708458 No Longer Active Checo Conklin MD Active FLUCONAZOLE 150 MG TABS take 1 tab po qday once 04/06 FLUCONAZOLE 90967942317 No Longer Active Dangelo Rangel MD Acti ve CIPRO 500 MG TAB 1 tablet by mouth twice daily CIPROFLOXACIN HCL 46781167025 No Longer Active Dangelo Rangel MD Active PYRIDIUM 200 MG TABS take 1 tab po TID prn urinary pain. 0 PYRIDIUM 200 MG TABS 7291088 PHENAZOPYRIDINE HCL Inactive PERCOCET 5-325 MG TABS 1 tablet by mouth every 6 hours as needed PERCOCET 5-325 MG TABS 6232388 OXYCODONE-ACETAMINOPHEN I nactive ZOFRAN ODT 4 MG TBDP 1 po q6hr PRN Nausea ZOFRAN ODT 4 MG TBDP 625712 ONDANSETRON Inactive FOCALIN XR 15 MG [id number] 1 po q a.m. F OCALIN XR 15 MG [id number] DEXMETHYLPHENIDATE HCL Inactive LORTAB 5 5-500 MG TABS 1/2 to 1 tablet by mouth flaquito ry 4 hours as needed for pain LORTAB 5 5-500 MG TABS HYDROCODONE-A CETAMINOPHEN Inactive PERCOCET 10-325 MG TABS 1 tablet every 6 hours as needed for pain PERCOCET 10-325 MG TABS 2202452 OXYCODONE-ACETAMINOPHEN Inactive FOCALIN XR 10 MG [id number] 1 po q a.m. F OCALIN XR 10 MG [id number] DEXMETHYLPHENIDATE HCL Inactive CEFDINIR 300 MG CAPS 1 po bid CEFDINIR 300 MG CAPS 20 0346 CEFDINIR Inactive ANTIPYRINE-BENZOCAINE 5.4-1.4 % SOLN 1-2 drops in affected ear ANTIPYRINE-BENZOCAINE 5.4-1.4 % SOLN 153241 BENZOCAINE-ANTIPYRINE I nactive FLONASE 50 MCG/ACT SUSP 1 spray each nostril am and hs FLONASE 50 MCG/ACT SUSP 852533 FLUTICASONE PROPIONATE Inactive PHENERGAN CREAM* 25mg applied to wrist q6hr PRN Nausea PHENERGAN CREAM* Inactive FIORICET 325-50-40 MG TAB 1 tablet by mouth four times daily as needed FIORICET 325-50-40 MG TAB ACETAMINOPHEN-C AFF-BUTALBITAL Inactive TRAZODONE HCL 100 MG TAB 0.5 to 1 po qHS PRN Insomnia TRAZODONE HCL 100 MG TAB 438745 TRAZODONE HCL Inactive CONCERTA 18 MG CR-TABS [...] s prn cough HYDROCODONE-ACETAMINOPHEN 5-325 MG TABS 377138 HYDROCODONE-ACETAMINOPHEN Inactive PHENAZOPYRIDINE HCL 200 MG TABS take 1 tab po TID for bladder pa in PHENAZOPYRIDINE HCL 200 MG TABS 9368355 PHENAZOPYRIDINE HCL Inactive HYDROCODONE-ACETAMINOPHEN 5-325 MG TABS 1 po q 6hr PRN Pain 2013 HYDROCODONE-ACETAMINOPHEN 5-325 MG TABS 444878 HYDROCODONE-ACETAMINOPHEN Inactive CIPRO 500 MG TAB 1 tablet by mouth twice daily CIPRO 500 MG TAB 333710 CIPROFLOXACIN HCL Inactive FLUCONAZOLE 150 MG TABS take 1 tab po qday once 04/06 FLUCONAZOLE 150 MG TABS 912036 FLUCONAZOLE Inactive ZITHROMAX Z-KARTHIK 250 MG TABS 2 today, then 1 daily for 4 days 201 09/18/28 ZITHROMAX Z-KARTHIK 250 MG TABS 0981876 AZITHROMYCIN Inac tive PREDNISONE 20 MG TAB 2 tabs daily for 3 days, 1 t ab daily for 3 days, 1/2 tab daily for 2 days PREDNISONE 20 MG TAB 737173 PREDNISON E Inactive AZITHROMYCIN 250 MG TABS 2 po qd x 1 day, then 1 po qd x 4 days AZITHROMYCIN 250 MG TABS 7956596 AZITHROMYCIN Inactiv e PREDNISONE 20 MG TAB 2 tabs daily for 3 days, 1 t ab daily for 3 days, 1/2 tab daily for 2 days PREDNISONE 20 MG TAB 440569 PREDNISON E Inactive CEFDINIR 300 MG CAPS by mouth twice a day CEFDINIR 300 MG CAPS 082538 CEFDINIR Inactive TRIAMCINOLONE ACETONIDE 0.1 % OINT Apply to affected a reas TID for up to 2 weeks TRIAMCINOLONE ACETONIDE 0.1 % OINT 032461 6 TRIAMCINOLONE ACETONIDE Inactive PREDNISONE 20 MG TAB 2 tabs daily for 3 days, 1 t ab daily for 3 days, 1/2 tab daily for 2 days PREDNISONE 20 MG TAB 473991 PREDNISON E Inactive BACTRIM DS 800-160 MG TABS 1 po BID x 7 days 0 BACTRIM DS 800-160 MG TABS SULFAMETHOXAZOLE-TRIMETHOPRIM Inactive CIPRO 500 MG TAB 1 tablet by mouth twice daily CIPRO 500 MG TAB 701631 CIPROFLOXACIN HCL Inactive AZITHROMYCIN 250 MG TABS 2 po qd x 1 day, then 1 po qd x 4 days AZITHROMYCIN 250 MG TABS 9814320 AZITHROMYCIN Inactiv e Immunizations Vaccine Administration Date [...] Panel - Chemistry sodium, serum 139 mmol/L 155-651 5880/10/24 potassium, serum 4.1 mmol/L 3.5-5.2 chloride, serum [...] 0.80 mg/dL 0.00-1.00 cholesterol, serum 147 mg/dL 101-778 0051/10/24 triglyceride, serum, fasting 112 mg/dL 30-200 HDL cholesterol, serum 40 mg/dL 32-96 LDL cholesterol, serum 85 mg/dL 0-130 Lab Report: UADIP W/MICRO, AUTO - Urinal ysis urine color Unable to read macroscopic due t o interfering substance Colorless;Lightyellow;Straw;Yellow appearance, urine red-orange clear Clear Encounters Code Encounter Date Provider Facility CPT-65151 Level 3 Est. 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 Patient 12:29:32 CDT Dangelo arroyo MD [facility] CPT-41971 Level 3 Est. Patient 16:53:02 CDT Checo Conklin MD [facility] CPT-20751 Level 3 Est. Patient 16:37:13 CDT Checo Conklin MD [facility] CPT-81404 Level 3 Est. Patient 16:16:59 CDT Paul Hamlin MD [facility] CPT-34144 Level 3 Est. Patient 14:20:13 CDT Dangelo arroyo MD [facility] CPT-12862 Level 4 Est. Patient 11:29:33 CDT Checo Conklin MD [facility] CPT-45317 Level 3 Est. Patient 17:08:31 CDT Checo Conklin MD [facility] CPT-65188 Level 3 Est. Patient 16:50:42 FRAME POLISHER Checo Conklin MD [facility] CPT-61897 Level 4 Est. Patient 09:26:08 FRAME POLISHER Checo Conklin MD [facility] CPT-45708 Level 3 Est. Patient 11:37:10 CDT Checo Conklin MD [facility] CPT-13740 Level 4 Est. Patient 14:07:38 CDT Checo Conklin MD [facility] CPT-78605 Level 3 Est. Patient 09:54:41 CDT Checo Conklin MD [facility] CPT-56462 Level 3 Est. Patient 11:10:54 CDT Paul Hamlin MD [facility] CPT-81989 Level 3 Est. Patient 14:16:56 FRAME POLISHER Checo Conklin MD [facility] CPT-02442 Level 3 Est. Patient 11:04:11 FRAME POLISHER Checo Conklin MD [facility] CPT-67207 Level 3 Est. Patient 17:09:26 CDT Dangelo arroyo MD [facility] CPT-80943 Level 3 Est. Patient 16:54:37 CDT Checo Conklin MD [facility] Procedures Code Procedure Name Date Entry Date Standard Desc ription CPT-OV Office Visit 11:31:28 CDT CPT-01576 Tubersol 09:39:29 CDT CPT-J2550 Phenergan 25 mg (Promethazine) 13:59:02 FRAME POLISHER CPT-J1885 Toradol 60 mg (Ketorolac) 13:59:02 FRAME POLISHER 2012
--- OUTSIDE RECORDS SUMMARY | 2019-09-29 02:39 | XMS REPORT | Clinical Summary ---
Author Author Admin, Bethany Gonzales Organization [facility] Address Unknown Phone Unavailable Allergies, [...] tablet by mouth daily CITAL OPRAM HYDROBROMIDE 06259956761 Active Checo Conklin MD Active BUPROPION HCL (SMOKING DETER) 150 MG [id number] 1 a day for 1 week then 1 twice a day BUPROPION HCL (SMOKING DETER) 52390386731 No Lo nger Active Checo Conklin MD Active SIMVASTATIN 20 MG TABS 1 po qd SIMVASTATIN 0811210531 4 Active Checo Conklin MD Active CHANTIX STARTING MONTH KARTHIK 0.5 MG X 11 & 1 MG X 42 TAB S 0.5mg daily for 3 days, then 0.5mg BID for 4 days, then 1mg BID VARENICLINE TARTRATE 26341188325 No Longer Active Checo Conklin MD Activ e XANAX 0.5 MG TABS 1 po BID PRN anxiety ALPRAZOLAM 02757912672 Active Checo Conklin MD Active CONCERTA 18 MG CR-TABS 1 po q a.m. METHYLPHENID ATE HCL 71657143803 No Longer Active Checo Conklin MD Active REGLAN 10 MG TAB 1 po TID PRN Nausea METOCLOPRA MIDE HCL 68415497045 Active Checo Conklin MD Active AMBIEN 5 MG TAB 1 po qHS PRN Insomnia ZOLPIDEM TARTRATE 88065807912 Active Checo Conklin MD Active TRAZODONE HCL 100 MG TAB 0.5 to 1 po qHS PRN Insomnia TRAZODONE HCL 14158616742 No Longer Active Checo Conklin MD Acti ve FIORICET 325-50-40 MG TAB 1 tablet by mouth four times daily as needed [id number] 92843874981 No Longer Active Checo Conklin MD Active PHENERGAN CREAM* 25mg applied to wrist q6hr PRN Nausea PHENERGAN CREAM* No Longer Active Checo Conklin MD A ctive LAMISIL 250 MG TAB 1 po qd TERBINAFINE HCL 6513698018 1 Active Checo Conklin MD Active FLONASE 50 MCG/ACT SUSP 1 spray each nostril am and hs FLUTICASONE PROPIONATE 21324170485 No Longer Active Checo Conklin MD Activ e ANTIPYRINE-BENZOCAINE 5.4-1.4 % SOLN 1-2 drops in affected ear BENZOCAINE-ANTIPYRINE 28434931686 No Longer Active Checo Conklin MD Active CEFDINIR 300 MG CAPS 1 po bid CEFDINIR 25744232 120 No Longer Active Checo Conklin MD Active PREDNISONE 20 MG TAB 2 tabs daily for 3 days, 1 t ab daily for 3 days, 1/2 tab daily for 2 days PREDNISONE 33635388851 No Longer Active Aracelis Conklin MD Active AZITHROMYCIN 250 MG TABS 2 po qd x 1 day, then 1 po qd x 4 days AZITHROMYCIN 00426243047 No Longer Active Checo Conklin MD Active PREDNISONE 20 MG TAB 2 tabs daily for 3 days, 1 t ab daily for 3 days, 1/2 tab daily for 2 days PREDNISONE 48267904378 No Longer Active Checo Conklin MD Active ZITHROMAX Z-KARTHIK 250 MG TABS 2 today, then 1 daily for 4 days 201 09/18/28 AZITHROMYCIN 00673903435 No Longer Active Paul Hamlni MD Active FOCALIN XR 10 MG [id number] 1 po q a.m. D EXMETHYLPHENIDATE HCL 95084966463 No Longer Active Paul Hamlin MD Activ e PERCOCET 10-325 MG TABS 1 tablet every 6 hours as needed for pain OXYCODONE-ACETAMINOPHEN 97132113464 No Longer Active Paul Hamlin MD Active LORTAB 5 5-500 MG TABS 1/2 to 1 tablet by mouth flaquito ry 4 hours as needed for pain HYDROCODONE-ACETAMINOPHEN 57529589513 No Longer Active Checo Conklin MD Active FOCALIN XR 15 MG [id number] 1 po q a.m. D EXMETHYLPHENIDATE HCL 41810631391 No Longer Active Checo Conklin MD Activ e ZOFRAN ODT 4 MG TBDP 1 po q6hr PRN Nausea ONDAN SETRON 69243589667 No Longer Active Checo Conklin MD Active PERCOCET 5-325 MG TABS 1 tablet by mouth every 6 hours as needed OXYCODONE-ACETAMINOPHEN 64470873401 No Longer Active Checo Conklin MD Active PYRIDIUM 200 MG TABS take 1 tab po TID prn urinary pain. 0 PHENAZOPYRIDINE HCL 30777803541 No Longer Active Checo Conklin MD Active FLUCONAZOLE 150 MG TABS take 1 tab po qday once 04/06 FLUCONAZOLE 76556437496 No Longer Active Dangelo Rangel MD Acti ve CIPRO 500 MG TAB 1 tablet by mouth twice daily CIPROFLOXACIN HCL 00304215066 No Longer Active Dangelo Rangel MD Active PYRIDIUM 200 MG TABS take 1 tab po TID prn urinary pain. 0 PYRIDIUM 200 MG TABS 2156785 PHENAZOPYRIDINE HCL Inactive PERCOCET 5-325 MG TABS 1 tablet by mouth every 6 hours as needed PERCOCET 5-325 MG TABS 8759988 OXYCODONE-ACETAMINOPHEN I nactive ZOFRAN ODT 4 MG TBDP 1 po q6hr PRN Nausea ZOFRAN ODT 4 MG TBDP 433085 ONDANSETRON Inactive FOCALIN XR 15 MG [id number] 1 po q a.m. F OCALIN XR 15 MG [id number]-RPH DEXMETHYLPHENIDATE HCL Inactive LORTAB 5 5-500 MG TABS 1/2 to 1 tablet by mouth flaquito ry 4 hours as needed for pain LORTAB 5 5-500 MG TABS HYDROCODONE-A CETAMINOPHEN Inactive PERCOCET 10-325 MG TABS 1 tablet every 6 hours as needed for pain PERCOCET 10-325 MG TABS 2959599 OXYCODONE-ACETAMINOPHEN Inactive FOCALIN XR 10 MG [id number] 1 po q a.m. F OCALIN XR 10 MG [id number]-OWF DEXMETHYLPHENIDATE HCL Inactive CEFDINIR 300 MG CAPS 1 po bid CEFDINIR 300 MG CAPS 20 0346 CEFDINIR Inactive ANTIPYRINE-BENZOCAINE 5.4-1.4 % SOLN 1-2 drops in affected ear ANTIPYRINE-BENZOCAINE 5.4-1.4 % SOLN 763018 BENZOCAINE-ANTIPYRINE I nactive FLONASE 50 MCG/ACT SUSP 1 spray each nostril am and hs FLONASE 50 MCG/ACT SUSP 387681 FLUTICASONE PROPIONATE Inactive PHENERGAN CREAM* 25mg applied to wrist q6hr PRN Nausea PHENERGAN CREAM* Inactive FIORICET 325-50-40 MG TAB 1 tablet by mouth four times daily as needed FIORICET 325-50-40 MG TAB ACETAMINOPHEN-C AFF-BUTALBITAL Inactive TRAZODONE HCL 100 MG TAB 0.5 to 1 po qHS PRN Insomnia TRAZODONE HCL 100 MG TAB 096833 TRAZODONE HCL Inactive CONCERTA 18 MG CR-TABS [...] mouth twice daily CIPRO 500 MG TAB 124598 CIPROFLOXACIN HCL Inactive FLUCONAZOLE 150 MG TABS take 1 tab po qday once 04/06 FLUCONAZOLE 150 MG TABS 597214 FLUCONAZOLE Inactive ZITHROMAX Z-KARTHIK 250 MG TABS 2 today, then 1 daily for 4 days 201 09/18/28 ZITHROMAX Z-KARTHIK 250 MG TABS 6578386 AZITHROMYCIN Inac tive PREDNISONE 20 MG TAB 2 tabs daily for 3 days, 1 t ab daily for 3 days, 1/2 tab daily for 2 days PREDNISONE 20 MG TAB 631431 PREDNISON E Inactive AZITHROMYCIN 250 MG TABS 2 po qd x 1 day, then 1 po qd x 4 days AZITHROMYCIN 250 MG TABS 5583667 AZITHROMYCIN Inactiv e PREDNISONE 20 MG TAB 2 tabs daily for 3 days, 1 t ab daily for 3 days, 1/2 tab daily for 2 days PREDNISONE 20 MG TAB 778369 PREDNISON E Inactive Immunizations Vaccine Administration Date [...] 5.3 % 4.3-6.0 sodium, serum 139 mmol/L 794-275 5149/01/09 potassium, serum 4.3 mmol/L 3.5-5.2 chloride, serum [...] 1.10 mg/dL 0.00-1.00 cholesterol, serum 222 mg/dL 588-587 5881/01/09 triglyceride, serum, fasting 92 mg/dL 30-200 HDL [...] 142-424 Encounters Code Encounter Date Provider Facility CPT-51698 Level 4 Est. Patient 11:29:33 CDT Checo Conklin MD [facility] CPT-83124 Level 3 Est. Patient 17:08:31 CDT Checo Conklin MD [facility] CPT-84613 Level 3 Est. 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 Patient 09:26:08 COMMUNITY EDUCATOR Checo Conklin MD [facility] CPT-74873 Level 3 Est. Patient 11:37:10 CDT Checo Conklin MD [facility] CPT-61504 Level 4 Est. Patient 14:07:38 CDT Chceo Conklin MD [facility] CPT-62923 Level 3 Est. Patient 09:54:41 CDT Checo Conklin MD [facility] CPT-95438 Level 3 Est. Patient 11:10:54 CDT Paul Hamlin MD [facility] CPT-53220 Level 3 Est. Patient 14:16:56 COMMUNITY EDUCATOR Checo Conklin MD [facility] CPT-81531 Level 3 Est. Patient 11:04:11 COMMUNITY EDUCATOR Checo Conklin MD [facility] CPT-03596 Level 3 Est. Patient 17:09:26 CDT Dangelo arroyo MD [facility] CPT-45563 Level 3 Est. Patient 16:54:37 CDT Checo Conklin MD [facility] Procedures Code Procedure Name Date Entry Date Standard Desc ription CPT-OV Office Visit 11:31:28 CDT CPT-17721 Tubersol 09:39:29 CDT CPT-J2550 Phenergan 25 mg (Promethazine) 13:59:02 COMMUNITY EDUCATOR CPT-J1885 Toradol 60 mg (Ketorolac) 13:59:02 COMMUNITY EDUCATOR 2012
== END 2019-09-27 14:00 | disposition home or self-care (01) ==
LOC: SDC 08:34
PROVIDERS: ATTEND Otolaryngology Otolaryngology/Facial Plastic Surgery
DX: J34.2 Deviated nasal septum (principal); J34.3 Hypertrophy of nasal turbinates; J34.89 Other specified disorders of nose and nasal sinuses; R09.81 Nasal congestion; E78.5 Hyperlipidemia, unspecified; F41.9 Anxiety disorder, unspecified; F17.210 Nicotine dependence, cigarettes, uncomplicated; Z88.5 Allergy status to narcotic agent; Z79.899 Other long term (current) drug therapy
CPT/HCPCS: 36415; 80048; 84703; 85025; 87081; 88300; 93005